=== PATIENT | male | born 1940 | race Caucasian/White ===

== ENCOUNTER → 2017-05-30 11:40 | Outpatient (CLI) | payer MEDICARE, SELFPAY ==
--- NOTE | 2017-05-30 12:00 | RAD_ITS ---
STUDY: X-RAY CHEST REASON FOR EXAM: Male, 77 years old. Cough, shortness of breath, recent flu TECHNIQUE: Frontal and lateral views of the chest. COMPARISON: None. FINDINGS: The lungs are clear and hyperinflated expanded. Basilar atelectasis. There is no demonstrated pleural abnormality. There is moderate cardiac enlargement. Normal mediastinum and purnima. Normal visualized pulmonary arteries. Normal visualized aortic arch and descending thoracic aorta. Normal visualized thoracic spine. Normal visualized ribs, clavicles, and shoulders. There is no demonstrated abnormality of the visualized soft tissue structures of the upper abdomen. RAD/Chest PA and Lateral IMPRESSION: No infiltrate. Basilar atelectasis. Hyperinflation. Cardiomegaly. Electronically Signed: Eduardo Richards DO at 0:00 EDT , Service support ,
[2017-05-30 14:44] LABS: AST(SGOT) 26 U/L (15-37); Alanine Aminotransfer ALT/SGPT 31 U/L (16-61); Albumin, Serum 3.5 g/dL (3.2-5.0); Alkaline Phosphatase 45 U/L (45-117); Anion Gap 6 (5-15); BUN 26 mg/dL (7-18); Bilirubin, Direct 0.09 mg/dL (0.00-0.30); Calcium,Total 8.7 mg/dL (8.5-10.1); Chloride 108 mmol/L (98-107); Cholesterol 206 mg/dL (200); Creatinine, Serum 1.37 mg/dL (0.70-1.30); EST Glomerular Filtration Rate 53 mL/min (>60); Est Glom Filt Rate - Afr Amer 65 mL/min (>60); Globulin 3.8 g/dL (2.2-4.2); Glucose 141 mg/dL (74-106); High Density Lipoprotein 33 mg/dL; Potassium 4.7 mmol/L (3.5-5.1); Protein, Total 7.3 g/dL (6.4-8.2); Sodium Level 142 mmol/L (136-145); Triglycerides 261 mg/dL; Very Low Density Lipoprotein 52 mg/dL (5-40)
[2017-05-30 14:49] LABS: Absolute Lymphocyte Count 1.51 X10^3/ul (0.83-4.51); Absolute Neutrophil Count 3.3 X10^3/uL (2.0-7.7); Basophil# 0.02 X10^3/uL; Basophil% 0.4 % (0-1); Eosinophils% 5.4 % (0-5); Hematocrit 41.8 % (40-54); Lymphocyte # 1.51 X10^3/ul (4.0); Lymphocyte % 27.4 % (19-41); Mean Corp Hgb Conc 31.1 g/gl (32-36); Mean Corpuscular Hgb 30.9 pg (27.0-32.0); Mean Corpuscular Volume 99.3 fL (80-94); Mean Platelet Vol. 11.6 fl (6.2-12.0); Monocyte# 0.41 X10^3/uL; Monocyte% 7.4 % (0-10); Neutrophil # 3.26 X10^3/uL (2.7-7.7); Neutrophil % 59.2 % (47-70); Platelet Count 122 K/mm3 (150-450); RBC Distribution Width CV 13.8 % (11.6-14.6); RBC Distribution Width SD 49.3 fl (35.1-43.9); Red Blood Count 4.21 M/mm3 (4.6-6.2); White Blood Count 5.5 K/mm3 (4.4-11.0)
[2017-05-30 14:58] LABS: POSITIVE COUNT NO; POSITIVE DIFFERENTIAL NO; POSITIVE MORPHOLOGY NO
== END ==
PROVIDERS: Family Provider Family Medicine; PCP Family Medicine; Visit Provider Family Medicine
DX: R06.02 Shortness of breath (principal); E11.9 Type 2 diabetes mellitus without complications
CPT/HCPCS: 36415; 71046; 80048; 80061; 80076; 85025

== ENCOUNTER → 2017-06-15 11:54 | Outpatient (CLI) | payer MEDICARE, SELFPAY ==
--- NOTE | 2017-06-15 12:09 | RAD_ITS ---
STUDY: X-RAY CHEST REASON FOR EXAM: Male, 77 years old. History of COPD. TECHNIQUE: PA and lateral views of the chest. COMPARISON: Comparison is made with prior study dated May 30, 2017. FINDINGS: Mild residual increased markings at the lung bases suggestive of bibasilar atelectasis and/or scarring. This as improved as compared to prior study. Blunting of the costophrenic angles posteriorly. There is mild cardiac enlargement. Normal mediastinum and purnima. Normal visualized pulmonary arteries. There is atherosclerotic calcification of the aortic arch with tortuosity. There are diffuse degenerative changes of the visualized thoracic spine. Normal visualized ribs, clavicles, and shoulders. There is no demonstrated abnormality of the visualized soft tissue structures of the upper abdomen. RAD/Chest PA and Lateral IMPRESSION: Mild increased markings at the lung bases suggestive of linear scarring and/or atelectasis. This has improved as compared to prior study. Electronically Signed: Ishaan La MD at 12:50 EDT Tel [phone], Service support ,
[2017-06-15 15:57] LABS: Absolute Lymphocyte Count 1.47 X10^3/ul (0.83-4.51); Absolute Neutrophil Count 3.4 X10^3/uL (2.0-7.7); Basophil# 0.04 X10^3/uL; Basophil% 0.7 % (0-1); Eosinophil# 0.26 X10^3/uL; Eosinophils% 4.6 % (0-5); Hematocrit 39.9 % (40-54); Hemoglobin 12.7 g/dl (13.0-16.5); Lymphocyte # 1.47 X10^3/ul (4.0); Lymphocyte % 26.2 % (19-41); Mean Corp Hgb Conc 31.8 g/gl (32-36); Mean Corpuscular Hgb 30.8 pg (27.0-32.0); Mean Corpuscular Volume 96.6 fL (80-94); Mean Platelet Vol. 11.3 fl (6.2-12.0); Monocyte# 0.43 X10^3/uL; Monocyte% 7.7 % (0-10); Neutrophil # 3.41 X10^3/uL (2.7-7.7); Neutrophil % 60.6 % (47-70); Platelet Count 139 K/mm3 (150-450); RBC Distribution Width CV 13.9 % (11.6-14.6); RBC Distribution Width SD 49.4 fl (35.1-43.9); Red Blood Count 4.13 M/mm3 (4.6-6.2); White Blood Count 5.6 K/mm3 (4.4-11.0)
[2017-06-15 15:59] LABS: POSITIVE COUNT NO; POSITIVE DIFFERENTIAL NO; POSITIVE MORPHOLOGY NO
[2017-06-15 16:15] LABS: ALB/GLOB Ratio 0.9 RATIO (0.9-2.4); AST(SGOT) 26 U/L (15-37); Alanine Aminotransfer ALT/SGPT 25 U/L (16-61); Albumin, Serum 3.4 g/dL (3.2-5.0); Alkaline Phosphatase 38 U/L (45-117); Anion Gap 9 (5-15); BUN 25 mg/dL (7-18); Calcium,Total 9.3 mg/dL (8.5-10.1); Chloride 106 mmol/L (98-107); Creatinine, Serum 1.25 mg/dL (0.70-1.30); EST Glomerular Filtration Rate 59 mL/min (>60); Est Glom Filt Rate - Afr Amer 72 mL/min (>60); Globulin 3.8 g/dL (2.2-4.2); Glucose 129 mg/dL (74-106); Potassium 4.5 mmol/L (3.5-5.1); Protein, Total 7.2 g/dL (6.4-8.2); Sodium Level 142 mmol/L (136-145)
[2017-06-15 16:25] LABS: BNP,B-Type NATRIURETIC PEPTIDE 17.8 pg/mL (0-100)
== END ==
LOC: MFPLAB 11:54 → MTRAD 11:55
PROVIDERS: Family Provider Family Medicine; PCP Family Medicine; Visit Provider Family Medicine
DX: J44.9 Chronic obstructive pulmonary disease, unspecified (principal); R60.0 Localized edema; R06.02 Shortness of breath
CPT/HCPCS: 36415; 71046; 80053; 83880; 85025

== ENCOUNTER → 2017-06-25 12:39 | Outpatient (CLI) | payer MEDICARE, SELFPAY ==
--- NOTE | 2017-06-25 12:41 | ECHOD_ITS ---
Reason For Study: SOB Procedure This was a 2D Doppler, Color Flow transthoracic echocardiogram. The exam was of poor technical quality due to difficulty breathing and body habitus. Exam performed in department. Left Ventricle Normal LV size. Left ventricular systolic function is normal. The estimated ejection fraction is 65 %. No regional wall motion abnormalities noted. Right Ventricle Normal RV size. Normal systolic function. Atria Normal left atrium. Normal right atrium. Mitral Valve Mitral valve not well visualized. Tricuspid Valve The tricuspid valve is not well visualized. Aortic Valve The aortic valve is not well visualized. Pulmonic Valve The pulmonic valve is not well visualized. Great Vessels Normal aortic root. The pulmonary artery is normal size. Pericardium/Pleural No pericardial effusion. Medication Pt refused use IV and of Definity. MMode/2D Measurements & Calculations LVIDd: 3.7 cm IVSd: 1.2 cm Ao root diam: 2.9 cm LVIDs: 2.9 cm LVPWd: 1.1 cm RVDd: 2.9 cm FS: 21.5 % LAV(MOD-bp): 39.1 ml LAV(MOD-bp) Indexed: 18.6 ml/m2 LA A4 area: 13.5 cm2 RA A4 area: 11.3 cm2 LAV(MOD-sp2): 40.6 ml LAV(MOD-sp4): 31.9 ml Doppler Measurements & Calculations MV E max prachi: 57.1 cm/sec MV V2 max: 146.6 cm/sec Ao V2 max: 229.0 cm/sec MV A max prachi: 98.2 cm/sec MV max P.6 mmHg Ao max P.0 mmHg MV E/A: 0.58 MV V2 mean: 76.5 cm/sec Ao V2 mean: 152.4 cm/sec MV mean P.7 mmHg Ao mean P.6 mmHg MV V2 VTI: 19.2 cm Ao V2 VTI: 37.1 cm LV V1 max: 110.7 cm/sec PA V2 max: 159.7 cm/sec LV V1 max P.9 mmHg LV V1 mean P.8 mmHg LV V1 mean: 80.9 cm/sec LV V1 VTI: 21.7 cm Interpretation Summary Normal LV size. Left ventricular systolic function is normal. The estimated ejection fraction is 65 %. The study was technically limited. The study was technically difficult. Ordering Physician: Emeka Hernandez Referring Physician: Emeka Hernandez Performed By: Jannette Marcial, LISSA, RVT
== END ==
PROVIDERS: Family Provider Family Medicine; PCP Family Medicine; Visit Provider Family Medicine
DX: R06.02 Shortness of breath (principal)
CPT/HCPCS: 93306

== ENCOUNTER → 2020-06-03 12:03 | Outpatient (CLI) | payer MEDICARE, SELFPAY ==
--- NOTE | 2020-06-03 12:30 | CT_ITS ---
STUDY: LOW DOSE CT LUNG CANCER SCREENING REASON FOR EXAM: Male, 80 years old. TOBACCO USE. The patient smoked 1.5 packs per day for 55 years. Patient quit in 2010. RADIATION DOSAGE (If Supplied By Facility): CTDIvol = ( 3.02 ) mGy, DLP = ( 98.55 ) mGycm TECHNIQUE: No contrast was administered. Low dose technique was utilized (average mAS-38 and kVp 120). 1.25 mm axial source images with a slice interval of 1.25-mm were reconstructed in lung windows. 2.5 mm axial source images with a slice interval of 2.5-mm were reconstructed in lung windows. 5.0 mm axial source images with a slice interval of 5.0-mm were reconstructed in soft tissue windows. Nodule measured using lung windows on PACS and/or independent workstation with automated measurement of minimum and maximum diameter. Nodule measurement reported as average diameter rounded to the nearest whole number. Growth is defined as an increase ins size of greater than 1.5 mm. COMPARISON: None. NODULES: No suspicious nodules are seen. Emphysema: Mild degree of emphysematous changes in the lung apices. There is mild degree of increased signal markings in the medial aspect of the right middle lobe as well as in the anterior aspect of the left lower lobe suggestive of scarring. There is also evidence of mild degree of bibasilar linear scarring slightly more prominent on the right side. Endobronchial lesion: None Aorta: Calcification of the aortic arch. Coronary arteries: Coronary artery calcification. Mediastinal nodes: Small mediastinal lymph nodes. Other chest and abdominal findings: Degenerative changes of the thoracic spine. CT/Low Dose CT Lung Screening IMPRESSION: Lung-RADS category 2 - Continue annual screening with LDCT in 12 months. IMPORTANT NOTES FOR USE: ACR Lung-RADS Version 1.0 Assessment Categories Release Date: July 07, 2013 Category: Coded 0-4 bases on nodule(s) with highest degree of suspicion. Negative screen is defined as categories 1 and 2; a positive screen is defined as categories 3 and 4. Category 3 and 4A nodules that are unchanged on interval CT should be coded as category 2, and individuals returned to screening in 12 months. Category 4X: Category 3 or 4 nodules with additional imaging findings that increase the suspicion of lung cancer, such as spiculation, GGN that doubles in size in 1 year, enlarged lymph notes, etc. Category Modifiers: S (significant finding unrelated to lung cancer) and C (prior history of treated lung cancer) may be added to the 0-4 Lung-RADS Electronically Signed: Ishaan La MD at 13:51 EDT , Service support ,
[2020-06-03 16:25] LABS: BNP,B-Type NATRIURETIC PEPTIDE 15.5 pg/mL (0-100)
== END ==
PROVIDERS: PCP Family Medicine; Visit Provider Internal Medicine Pulmonary Disease
DX: J44.9 Chronic obstructive pulmonary disease, unspecified (principal); I10 Essential (primary) hypertension; R09.02 Hypoxemia; Z87.891 Personal history of nicotine dependence
CPT/HCPCS: 36415; 71271; 83880

== ENCOUNTER 2021-05-02 13:16 | Observation (INO) | payer MEDICARE, SELFPAY ==
[2021-05-02] VITALS (15 sets, daily range): BP systolic 149–201; BP diastolic 53–104; PULSE 97–118; RESP 20–45; TEMP 36.6–36.7; O2SAT 94–98; BMI 35.6; BMI 35.1
--- NOTE | 2021-05-02 13:32 | EKG12_ITS ---
Test Reason : SOB Blood Pressure : / mmHG Vent. Rate : 105 BPM Atrial Rate : 105 BPM P-R Int : 190 ms QRS Dur : 074 ms QT Int : 312 ms P-R-T Axes : 072 006 030 degrees QTc Int : 412 ms Sinus tachycardia Otherwise normal ECG Confirmed by RADHA CARRILLO, YURIDIA ([id number]), art editor ZACKARY MARTINEZ ([id number]) on 05/03/2021 6:41:01 AM Referred By: ELIAS Confirmed By:YURIDIA GARCIA MD
--- NOTE | 2021-05-02 13:37 | ED.VIS.DYS ---
HPI <MIKE Calhoun - Last Filed: 05/02/21 14:55> History of Present Illness Chief Complaint: Shortness of Breath Narrative Narrative: 80-year-old male with PMH of HTN, HLD, DM2, COPD on chronic 2 L O2, CARMEN presents with 2-week history of increasing shortness of breath. He states he can only take 4-5 steps before becoming very winded. He is also orthopneic and sleeping upright in a recliner. No chest pain. His baseline cough is unchanged. He has been using his nebulizer more frequently without significant improvement. He states he was in [place] [facility] 1 week ago for these symptoms and they could not find anything wrong. He does report slightly increased lower extremity edema. He takes torsemide 5 mg once daily. He states this dose was cut in half a few months ago. He quit smoking in 2010. PFS <MIKE Calhoun - Last Filed: 05/02/21 14:55> [facility] Medical History (Updated 05/02/21 @ 16:[address] Tracy Angel MD) Chronic respiratory failure with hypoxia COPD (chronic obstructive pulmonary disease) Diabetes mellitus, type 2 Former tobacco use HLD (hyperlipidemia) HTN (hypertension) Hypothyroidism Obesity Home Medications aspirin [Aspirin Low Dose] 81 mg PO DAILY 05/02/21 [History Last Taken 05/02/21] atorvastatin 80 mg PO DAILY 05/02/21 [History Last Taken 05/01/21] cholecalciferol (vitamin D3) 25 mcg PO DAILY 05/02/21 [History Last Taken 05/02/21] glimepiride 4 mg PO DAILY 05/02/21 [History Last Taken 05/01/21] ipratropium-albuterol 3 ml INHALATION 4X/DAY 05/02/21 [History Last Taken 05/02/21] liothyronine 25 mcg PO DAILY 05/02/21 [History Last Taken 05/02/21] lisinopril-hydrochlorothiazide 1 tab PO DAILY 05/02/21 [History Last Taken 05/02/21] metformin 1,000 mg PO BID 05/02/21 [History Last Taken 05/02/21] omega-3 fatty acids-vitamin E [Fish Oil] 2 cap PO DAILY 05/02/21 [History Last Taken 05/01/21] tiotropium bromide [Spiriva with HandiHaler] 18 mcg INHALATION DAILY 05/02/21 [History Last Taken 05/02/21] torsemide 5 mg PO DAILY 05/02/21 [History Last Taken 05/01/21] vitamins A,C,Y-gaoc-tejoxo [PreserVision AREDS] 1 cap PO BID 05/02/21 [History Last Taken 05/02/21] Allergy/AdvReac Type Severity Reaction Status Date / Time codeine AdvReac Upset Verified 05/02/21 14:26 Stomach Family History (Updated 05/02/21 @ 16:[address] Tracy Angel MD) Mother CVA (cerebral vascular accident) Heart disease Myocardial infarction Hx of CABG Hypertension Father CVA (cerebral vascular accident) Heart disease Surgical History (Updated 05/02/21 @ 16:[address] Tracy Angel MD) S/P cataract extraction Social History (Updated 05/02/21 @ 16:[address] Tracy Angel MD) household members: none housing: house Smoking Status: Former smoker how long ago did patient quit smoking: Quit 2011, prior 1 ppd since teen. alcohol intake: former year quit: 2010 substance use type: does not use ROS <MIKE Calhoun - Last Filed: 05/02/21 14:55> ROS ED ROS Narrative Constitutional: Negative for fever, chills, malaise. Eyes: Negative for visual change. ENT: Negative for sore throat, ear pain, rhinorrhea. CVS: Negative for palpitations, chest pain, syncope. Respiratory: Positive shortness of breath, cough, orthopnea. GI: Negative for abdominal pain, nausea, vomiting, diarrhea, constipation, melena, hematochezia. : Negative for dysuria, hematuria or frequency. Neuro: Negative for headache, motor/sensory dysfunction. Skin: Negative for rash, abscess, or wound. Musc: Negative for joint pain, swelling, trauma. Heme: Negative for easy bruising, bleeding, lymphadenopathy. EXAM <MIKE Calhoun - Last Filed: 05/02/21 14:55> Physical Exam Narrative Exam Narrative: CONST: Patient sitting in no acute distress. EYES: Normal inspection. ENT: Normal inspection, moist mucous membranes. NECK: Normal inspection. RESP: Tachypneic, diffuse expiratory wheezing and diminished lung sounds. CVS: Tachycardic with regular rhythm, no murmur, no gallop. ABD: Soft and nontender, no guarding or rebound, nondistended, no hepatosplenomegaly. Back: Normal inspection. SKIN: Color normal, no rash, warm, dry, intact. EXTREMITIES: Normal appearance, 1+ pitting edema to bilateral mid tibia. NEURO: Oriented x4. PSYCH: Normal affect. Const Vital Signs: 05/02/21 13:20 05/02/21 13:27 05/02/21 13:59 Temperature 97.9 F Temperature Source Oral Pulse Rate 107 H 101 H Respiratory Rate 30 H 30 H Respiratory Effort Labored Respiratory Depth Normal Respiratory Pattern Tachypnea Normal Blood Pressure 180/61 H Blood Pressure Mean 100 Pulse Ox 96 94 Oxygen Delivery Method Nasal Cannula Nasal Cannula Nasal Cannula Oxygen Flow Rate (L/min) 4 3 2.5 05/02/21 14:08 05/02/21 14:39 05/02/21 15:21 Temperature 97.9 F Temperature Source Oral Pulse Rate 102 H 100 109 H Respiratory Rate 30 H 28 H 22 H Respiratory Effort Respiratory Depth Respiratory Pattern Normal Tachypnea Blood Pressure 157/53 H Blood Pressure Mean 87 Pulse Ox 96 Oxygen Delivery Method Nasal Cannula Oxygen Flow Rate (L/min) 3 <Dr. Dusty Yan MD - Last Filed: 05/02/21 18:55> Physical Exam Const Vital Signs: 05/02/21 13:20 05/02/21 13:27 05/02/21 13:59 Temperature 97.9 F Temperature Source Oral Pulse Rate 107 H 101 H Respiratory Rate 30 H 30 H Respiratory Effort Labored Respiratory Depth Normal Respiratory Pattern Tachypnea Normal Blood Pressure 180/61 H Blood Pressure Mean 100 Pulse Ox 96 94 Oxygen Delivery Method Nasal Cannula Nasal Cannula Nasal Cannula Oxygen Flow Rate (L/min) 4 3 2.5 05/02/21 14:08 05/02/21 14:39 05/02/21 15:21 Temperature 97.9 F Temperature Source Oral Pulse Rate 102 H 100 109 H Respiratory Rate 30 H 28 H 22 H Respiratory Effort Respiratory Depth Respiratory Pattern Normal Tachypnea Blood Pressure 157/53 H Blood Pressure Mean 87 Pulse Ox 96 Oxygen Delivery Method Nasal Cannula Oxygen Flow Rate (L/min) 3 MDM <MIKE Calhoun - Last Filed: 05/02/21 14:55> [facility] MDM Narrative Medical decision making narrative: Patient presents with worsening dyspnea on exertion, orthopnea, and lower extremity edema. He appears in mild respiratory distress but nontoxic. He has diffuse wheezing in all lung hollis and 2+ pitting edema bilaterally. Labs show hemoglobin of 11.7. This is unchanged from outside labs at [place] on 04/23. He has a normal white count. Sodium is 146, BUN/creatinine 36/1.3. EKG is nonischemic and troponin is 35. proBNP is 210. Chest x-ray shows CHF with bilateral pleural effusions and clinically this is what he is consistent with. With normal renal function he was treated with IV Lasix 40 mg. While here he required increased oxygen up to 4 L and remains very symptomatic. He will need admitted for CHF exacerbation. Diagnoses 1. Hypoxia 2. CHF exacerbation 3. Hypernatremia 4. Bilateral pleural effusions Lab Data Labs: Laboratory Results - last 24 hr 05/02/21 05/02/21 05/02/21 13:41 13:41 13:41 WBC 5.7 RBC 3.67 L Hgb 11.7 L Hct 36.0 L MCV 98.1 H MCH 31.9 MCHC 32.5 RDW Std Deviation 46.0 H RDW Coeff of John 12.9 Plt Count 88 L MPV 10.8 Immature Gran % (Auto) 0.300 Neut % (Auto) 74.6 H Lymph % (Auto) 14.8 L [place] % (Auto) 5.1 Eos % (Auto) 4.7 Baso % (Auto) 0.5 Absolute Neuts (auto) 4.3 Absolute Lymphs (auto) 0.85 Nucleated RBC % 0 Platelet Estimate MOD DEC Sodium 146 H Potassium 4.5 Chloride 111 H Carbon Dioxide 33.0 H Anion Gap 2 L BUN 36 H Creatinine 1.30 Estim Creat Clear Calc 40.22 Est GFR (MDRD) Af Amer 68 Est GFR (MDRD) Non-Af 56 L BUN/Creatinine Ratio 27.7 H Glucose 182 H Calcium 9.1 Magnesium Troponin I High Sens 35 B-Natriuretic Peptide 210.6 H Procalcitonin 05/02/21 05/02/21 13:41 14:20 WBC RBC Hgb Hct MCV MCH MCHC RDW Std Deviation RDW Coeff of John Plt Count MPV Immature Gran % (Auto) Neut % (Auto) Lymph % (Auto) [place] % (Auto) Eos % (Auto) Baso % (Auto) Absolute Neuts (auto) Absolute Lymphs (auto) Nucleated RBC % Platelet Estimate Sodium Potassium Chloride Carbon Dioxide Anion Gap BUN Creatinine Estim Creat Clear Calc Est GFR (MDRD) Af Amer Est GFR (MDRD) Non-Af BUN/Creatinine Ratio Glucose Calcium Magnesium 1.2 L Troponin I High Sens B-Natriuretic Peptide Procalcitonin 0.12 H Radiography Diagnostic Testing: Clinical Impression(s) from Imaging Studies Chest X-Ray 05/02/21 13:51 IMPRESSION: Bilateral pleural effusions and bibasilar infiltrates superimposed on CHF. Well-defined pulmonary nodules are seen in the peripheral lateral aspect of the right lower lobe. Electronically Signed: Ishaan La MD at 14:10 EST , <Dr. Dusty Yan MD - Last Filed: 05/02/21 18:55> [facility] MDM Narrative Medical decision making narrative: to male with hi He is not a very good informant.story of congestive heart failure. Has not seen a community health director in approximately 6 years.Patient is noted He does He is presently on 4 L of oxygen bleeding 35 times a minute and has conversational dyspnea.. He denies PND. He does endorse increased weight gain and edema. endorse orthopnea He was seen at outside facility approximate week ago. Blood work is similar to results at that time. BNP was higher. Patient is a heavyset gentleman who is in respiratory distress. He denies anginal equivalent symptoms. He denies black or maroon-colored stool. He denies decreased urine output. Vital signs noted. He is tachypneic. His saturation is 96% on 4 L. HEENT exam is unremarkable. Lungs reveal rales bilaterally decreased breath sounds on the left base. is Heart bowel sounds diminished. He slightly symptomatic. regular w Abdomen is nontender.ithout murmur, gallop or rub. Abdomen is prominent Patient has pitting edema of the lower extremities. He is not jaundiced. He appears slightly pale. Monitor reveals a sinus rhythm rate of 102.There is a rare ectopic beat noted. Patient was treated with IV Lasix. Since he is requiring 4 L of oxygen he has conversational dyspnea hospitalist been paged for admission for acute exacerbation of CHF. Patient has failed outpatient therapy. Lab Data Attestation: I reviewed the patient's lab results. Labs: Laboratory Results - last 24 hr 05/02/21 05/02/21 05/02/21 13:41 13:41 13:41 WBC 5.7 RBC 3.67 L Hgb 11.7 L Hct 36.0 L MCV 98.1 H MCH 31.9 MCHC 32.5 RDW Std Deviation 46.0 H RDW Coeff of John 12.9 Plt Count 88 L MPV 10.8 Immature Gran % (Auto) 0.300 Neut % (Auto) 74.6 H Lymph % (Auto) 14.8 L [place] % (Auto) 5.1 Eos % (Auto) 4.7 Baso % (Auto) 0.5 Absolute Neuts (auto) 4.3 Absolute Lymphs (auto) 0.85 Nucleated RBC % 0 Platelet Estimate MOD DEC Sodium 146 H Potassium 4.5 Chloride 111 H Carbon Dioxide 33.0 H Anion Gap 2 L BUN 36 H Creatinine 1.30 Estim Creat Clear Calc 40.22 Est GFR (MDRD) Af Amer 68 Est GFR (MDRD) Non-Af 56 L BUN/Creatinine Ratio 27.7 H Glucose 182 H Calcium 9.1 Magnesium Troponin I High Sens 35 B-Natriuretic Peptide 210.6 H Procalcitonin 05/02/21 05/02/21 13:41 14:20 WBC RBC Hgb Hct MCV MCH MCHC RDW Std Deviation RDW Coeff of John Plt Count MPV Immature Gran % (Auto) Neut % (Auto) Lymph % (Auto) [place] % (Auto) Eos % (Auto) Baso % (Auto) Absolute Neuts (auto) Absolute Lymphs (auto) Nucleated RBC % Platelet Estimate Sodium Potassium Chloride Carbon Dioxide Anion Gap BUN Creatinine Estim Creat Clear Calc Est GFR (MDRD) Af Amer Est GFR (MDRD) Non-Af BUN/Creatinine Ratio Glucose Calcium Magnesium 1.2 L Troponin I High Sens B-Natriuretic Peptide Procalcitonin 0.12 H Radiography Chest X-Ray - ED: Read by ED Physician (Single view chest x-ray reveals borderline cardiomegaly. Cardiac silhouette is unremarkable. Patient has bilateral pleural effusions with evidence of congestive heart failure. Osseous structures are unremarkable.) Diagnostic Testing: Clinical Impression(s) from Imaging Studies Chest X-Ray 05/02/21 13:51 IMPRESSION: Bilateral pleural effusions and bibasilar infiltrates superimposed on CHF. Well-defined pulmonary nodules are seen in the peripheral lateral aspect of the right lower lobe. Electronically Signed: Ishaan La MD at 14:10 EST , EKG Initial EKG: Attestation: I personally reviewed and interpreted this EKG as follows: Interpretation: Sinus Tachycardia (Ventricular rate 105. ND interval is 190 ms. QS duration 74 ms. QT duration 3 and 12 ms with a QTC of 412 ms. [place] normal. Other than sinus tachycardia the EKG is otherwise unremarkable) Discharge Plan Dx/Rx/DC Orders Clinical Impression: Acute exacerbation of CHF (congestive heart failure), Acute respiratory failure with hypoxia, Sinus tachycardia, Anemia in chronic illness, Prerenal azotemia, Bilateral pleural effusion Disposition Disposition: Acute Care Hospital [facility] Discharge Date/Time: 05/02/21 15:43
--- NOTE | 2021-05-02 13:51 | RAD_ITS ---
STUDY: X-RAY CHEST REASON FOR EXAM: Male, 80 years old. Cough TECHNIQUE: Single AP portable view of the chest. COMPARISON: Comparison is made with prior study 06/15/2017. FINDINGS: EKG electrodes are seen. Bilateral pleural effusions with bibasilar pulmonary infiltrates. Pulmonary nodule is seen in the lateral aspect of the right lower lobe. There is superimposed CHF. Normal size heart. Normal mediastinum and purnima. Normal visualized pulmonary arteries. There is atherosclerotic calcification of the aortic arch with tortuosity. There are diffuse degenerative changes of the visualized thoracic spine. Normal visualized ribs, clavicles, and shoulders. There is no demonstrated abnormality of the visualized soft tissue structures of the upper abdomen. RAD/Chest 1 View (Portable) IMPRESSION: Bilateral pleural effusions and bibasilar infiltrates superimposed on CHF. Well-defined pulmonary nodules are seen in the peripheral lateral aspect of the right lower lobe. Electronically Signed: Ishaan La MD at 14:10 EST ,
[2021-05-02 13:52] LABS: Absolute Lymphocyte Count 0.85 X10^3/uL (0.83-4.51); Absolute Neutrophil Count 4.3 X10^3/uL (2.0-7.7); Basophil# 0.03 X10^3/uL; Basophil% 0.5 % (0-1); Eosinophil# 0.27 X10^3/uL; Eosinophils% 4.7 % (0-5); Hemoglobin 11.7 g/dL (13.0-16.5); Lymphocyte # 0.85 X10^3/ul (0.83-4.51); Lymphocyte % 14.8 % (19-41); Mean Corp Hgb Conc 32.5 g/dL (32-36); Mean Corpuscular Hgb 31.9 pg (27.0-32.0); Mean Corpuscular Volume 98.1 fL (80-94); Mean Platelet Vol. 10.8 fl (6.2-12.0); Monocyte# 0.29 X10^3/uL; Monocyte% 5.1 % (0-10); NRBC Flagged by Analyzer 0 % (0-5); Neutrophil # 4.28 X10^3/uL (2.7-7.7); Neutrophil % 74.6 % (47-70); POSITIVE COUNT YES; Platelet Count 88 K/mm3 (150-450); RBC Distribution Width CV 12.9 % (11.6-14.6); Red Blood Count 3.67 M/mm3 (4.6-6.2); White Blood Count 5.7 K/mm3 (4.4-11.0)
--- NOTE | 2021-05-02 13:54 | NURSING ---
NO OLD EKGS
[2021-05-02] MEDS: Albuterol 2.5 MG/3 ML VIAL.NEB. INHALATION ×3 (14:02→14:07)
[2021-05-02 14:09] LABS: Anion Gap 2 (5-15); BUN 36 mg/dL (7-18); BUN/Creat Ratio 27.7 RATIO (10-20); Calcium,Total 9.1 mg/dL (8.5-10.1); Chloride 111 mmol/L (98-107); EST Glomerular Filtration Rate 56 mL/min (>60); Est Glom Filt Rate - Afr Amer 68 mL/min (>60); Estimated Creatinine Clearance 40.22 ml/min; Glucose 182 mg/dL (74-106); Potassium 4.5 mmol/L (3.5-5.1); Sodium Level 146 mmol/L (136-145); Troponin-I HS 35 pg/mL (3.0-78.0)
[2021-05-02 14:14] LABS: Differential Indicated SCAN CRITERIA MET
[2021-05-02 14:16] LABS: BNP,B-Type NATRIURETIC PEPTIDE 210.6 pg/mL (0-100)
[2021-05-02] MEDS: Furosemide 40 MG/4 ML Vial IV ×2 (14:27→17:03)
[2021-05-02 14:38] LABS: Platelet Estimate MOD DEC (ADEQ)
--- NOTE | 2021-05-02 14:57 | PCM.HP.STD ---
HPI - General General Date of Admission: 05/02/21 Date of Service: 05/02/21 Chief Complaint: Dyspnea, cough, increased home O2 needs 2->4L HPI Narrative The patient is an 80 y/o M w/ PMHx: CKD stage III unclear subtype, HTN, HLD, Chronic anemia, Chronic Thrombocytopenia, Diabetes mellitus type II, Obesity, CHF unclear type following w/ Dr. Gant previously but has not seen anyone recently, Chronic COPD w/ Chronic Hypoxic Respiratory Failure (2L NC) who presents to the [facility] ED on 05/02/21 with history of worsening dyspnea, orthopnea, worsening BL LE edema, weight gain over the last 2 weeks, increased work of breathing requiring increase of his home oxygen from 2L to 4L NC. He notes that he is not been taking any medications aside from a blood pressure medication recently because he has not been to see any healthcare professionals. He denies any significant productive sputum but has had ongoing cough with chest tightness/wheezing. He notes that his been worsened since the recent large snowfall and shoveling outside. Work-up in the ED included T 97.9, heart rate initially 107 with most recent repeat 100, BP 180/61, respiratory rate 30, initially 96% on 4 L nasal cannula decreased to 94% on 2.5 L nasal cannula, CBC with WC 5.7, hemoglobin 11.7, platelet 88 without marked shift, BMP with sodium 146, chloride 111, convex at 33, BUN/creatinine 36/1.30, glucose 182, troponin 35, BNP 210.6, rapid Covid antigen negative, chest x-ray with bilateral pleural effusions and bibasilar infiltrates superimposed on CHF, well-defined pulmonary nodule seen in the peripheral lateral aspect of the right lower lobe. In the ED patient administered lasix 40 mg IV x 1 and aerosols. [facility] Medical History (Updated 05/02/21 @ 16:[address] Tracy Angel MD) Chronic respiratory failure with hypoxia COPD (chronic obstructive pulmonary disease) Diabetes mellitus, type 2 Former tobacco use HLD (hyperlipidemia) HTN (hypertension) Hypothyroidism Obesity Home Medications aspirin [Aspirin Low Dose] 81 mg PO DAILY 05/02/21 [History Last Taken 05/02/21] atorvastatin 80 mg PO DAILY 05/02/21 [History Last Taken 05/01/21] cholecalciferol (vitamin D3) 25 mcg PO DAILY 05/02/21 [History Last Taken 05/02/21] glimepiride 4 mg PO DAILY 05/02/21 [History Last Taken 05/01/21] ipratropium-albuterol 3 ml INHALATION 4X/DAY 05/02/21 [History Last Taken 05/02/21] liothyronine 25 mcg PO DAILY 05/02/21 [History Last Taken 05/02/21] lisinopril-hydrochlorothiazide 1 tab PO DAILY 05/02/21 [History Last Taken 05/02/21] metformin 1,000 mg PO BID 05/02/21 [History Last Taken 05/02/21] omega-3 fatty acids-vitamin E [Fish Oil] 2 cap PO DAILY 05/02/21 [History Last Taken 05/01/21] tiotropium bromide [Spiriva with HandiHaler] 18 mcg INHALATION DAILY 05/02/21 [History Last Taken 05/02/21] torsemide 5 mg PO DAILY 05/02/21 [History Last Taken 05/01/21] vitamins A,C,X-ddeq-jmwrgs [PreserVision AREDS] 1 cap PO BID 05/02/21 [History Last Taken 05/02/21] Allergy/AdvReac Type Severity Reaction Status Date / Time codeine AdvReac Upset Verified 05/02/21 14:26 Stomach Family History (Updated 05/02/21 @ 16:[address] Tracy Angel MD) Mother CVA (cerebral vascular accident) Heart disease Myocardial infarction Hx of CABG Hypertension Father CVA (cerebral vascular accident) Heart disease Surgical History (Updated 05/02/21 @ 16:[address] Tracy Angel MD) S/P cataract extraction Social History (Updated 05/02/21 @ 16:[address] Tracy Angel MD) household members: none housing: house Smoking Status: Former smoker how long ago did patient quit smoking: Quit 2011, prior 1 ppd since teen. alcohol intake: former year quit: 2010 substance use type: does not use ROS ROS Narrative Admission Review of Systems: CONSTITUTIONAL: No weight loss, fever, chills, + weakness or fatigue, weight gain. HEENT: Eyes: No visual loss, blurred vision, double vision or yellow sclerae. Ears, Nose, Throat: No hearing loss, sneezing, congestion, runny nose or sore throat. SKIN: No rash or itching, lesions, wounds. CARDIOVASCULAR: + Chest tightness with wheezing, edema, orthopnea, weight gain. No palpitations, syncopal events. RESPIRATORY: + shortness of breath, cough without marked sputum, wheezing, No hemoptysis. GASTROINTESTINAL: No anorexia, nausea, vomiting or diarrhea, abdominal pain, melena, BRBPR. GENITOURINARY: No dysuria, frequency, urgency or retention. NEUROLOGICAL: No headache, dizziness, syncope, paralysis, ataxia, numbness or tingling in the extremities, focal weakness, change in bowel or bladder control, seizure. MUSCULOSKELETAL: + muscle, back pain, joint pain or stiffness. HEMATOLOGIC: + anemia, bleeding or bruising. LYMPHATICS: No enlarged nodes. No history of splenectomy. PSYCHIATRIC: No history of depression or anxiety. ENDOCRINOLOGIC: No reports of sweating, cold or heat intolerance. No polyuria or polydipsia. ALLERGIES: No history of asthma, hives, eczema or rhinitis. Vital Signs Vital Signs Vital Signs: 05/02/21 13:20 05/02/21 13:27 05/02/21 13:59 Temperature 97.9 F Temperature Source Oral Pulse Rate 107 H 101 H Respiratory Rate 30 H 30 H Respiratory Effort Labored Respiratory Depth Normal Respiratory Pattern Tachypnea Normal Blood Pressure 180/61 H Blood Pressure Mean 100 Pulse Ox 96 94 Oxygen Delivery Method Nasal Cannula Nasal Cannula Nasal Cannula Oxygen Flow Rate (L/min) 4 3 2.5 05/02/21 14:08 05/02/21 14:39 Temperature Temperature Source Pulse Rate 102 H 100 Respiratory Rate 30 H 28 H Respiratory Effort Respiratory Depth Respiratory Pattern Normal Tachypnea Blood Pressure Blood Pressure Mean Pulse Ox Oxygen Delivery Method Oxygen Flow Rate (L/min) Weight Weight: 221 lb Body Mass Index (BMI) 35.6 Physical Exam Narrative Physical Examination: General: Awake, alert, oriented x 3 and cooperative, seated upright in the ED bed, fatigued, mildly increased RR, NAD. Skin: Normal color, normal turgor, no icterus, no cyanosis except occasional staged ecchymoses. HEENT: AT/NC, EOMI, PERRLA, MMM, no carotid bruits, + JVD noted, although difficult exam given thickened neck. Lungs: Diffusely diminished, tight, mild increased respiratory rate, mild rales bases, end expiratory soft distant wheezing, no rhonchi. Heart: Mildly tachycardic with regular rhythm; no gallop, rub audible. Abdomen: Soft, obese, NTTP, ND but difficult given habitus, distant normal BS, no obvious evidence of HSM. Extremities: No cyanosis, no clubbing, bilateral ankle to distal sherwood not markedly pitting edema. Neurological: Patient awake, alert, oriented as noted, cognitive function intact; pupils equally reactive to light and accommodation, cranial nerves II-XII grossly normal, moving all 4 extremities, no focal deficits, strength moderately to severe your leg decree secondary to acute presentation. Psychiatric: Affect appears fatigued, mildly increased respiratory rate, notes recent aerosols did help, no acute evidence of depressive or anxiety feelings. Results Lab / Micro Data Result Diagrams: 05/02/21 13:41 05/02/21 13:41 Labs: Laboratory Results - last 24 hr 05/02/21 13:41: WBC 5.7, RBC 3.67 L, Hgb 11.7 L, Hct 36.0 L, MCV 98.1 H, MCH 31.9, MCHC 32.5, RDW Std Deviation 46.0 H, RDW Coeff of John 12.9, Plt Count 88 L, MPV 10.8, Immature Gran % (Auto) 0.300, Neut % (Auto) 74.6 H, Lymph % (Auto) 14.8 L, [place] % (Auto) 5.1, Eos % (Auto) 4.7, Baso % (Auto) 0.5, Absolute Neuts (auto) 4.3, Absolute Lymphs (auto) 0.85, Nucleated RBC % 0, Platelet Estimate MOD DEC 05/02/21 13:41: Sodium 146 H, Potassium 4.5, Chloride 111 H, Carbon Dioxide 33.0 H, Anion Gap 2 L, BUN 36 H, Creatinine 1.30, Estim Creat Clear Calc 40.22, Est GFR (MDRD) Af Amer 68, Est GFR (MDRD) Non-Af 56 L, BUN/Creatinine Ratio 27.7 H, Glucose 182 H, Calcium 9.1, Troponin I High Sens 35 05/02/21 13:41: B-Natriuretic Peptide 210.6 H Micro: Microbiology 05/02/21 13:49 Nasal Secretion SARS-CoV-2 Antigen (Rapid) - Final Radiology Impression Chest X-Ray 05/02/21 13:51 IMPRESSION: Bilateral pleural effusions and bibasilar infiltrates superimposed on CHF. Well-defined pulmonary nodules are seen in the peripheral lateral aspect of the right lower lobe. Electronically Signed: Ishaan La MD at 14:10 EST , Assessment & Plan Assessment/Plan (1) Acute exacerbation of CHF (congestive heart failure): QUALIFIERS: Heart failure type: unspecified Qualified Code(s): I50.9 - Heart failure, unspecified (2) COPD exacerbation: (3) Acute and chronic respiratory failure with hypoxia: PLAN: The patient is an 80 y/o M w/ PMHx: CKD stage III unclear subtype, HTN, HLD, Chronic anemia, Chronic Thrombocytopenia, Diabetes mellitus type II, Obesity, CHF unclear type following w/ Dr. Gant previously but has not seen anyone recently, Chronic COPD w/ Chronic Hypoxic Respiratory Failure (2L NC) who presents to the [facility] ED on 05/02/21 with history of worsening dyspnea, orthopnea, worsening BL LE edema, weight gain over the last 2 weeks, increased work of breathing requiring increase of his home oxygen from 2L to 4L NC as well as complaint of tightness/wheezing with no marked sputum production but ongoing cough. #1. Acute Respiratory Insufficiency on Chronic Hypoxic Respiratory Failure secondary to Acute Decompensated CHF, unclear type and #2: CXR obtained in the ED w/ bilateral effusions and infiltrates superimposed on CHF. Patient administered IV lasix in the ED, will admit to PCU, maintain on cardiac telemetry, obtain cardiac enzyme series, obtain serial EKGs, continue IV lasix diuresis, monitor I/Os, maintain on intake restriction, continue medical therapy, obtain TSH and magnesium level. 06/25/17 ECHO w/ normal LV size, normal LV systolic function, EF 65% therefore will request repeat. May involve cardiology pending further assessments and evaluations. To be cautious will obtain repeat chest x-ray in a.m. to assure no underlying developing pneumonia however patient does not have marked WBC elevation or left shift and is afebrile of note. Procalcitonin requested. #2. Acute on chronic COPD exacerbation w/ Acute respiratory insufficiency on chronic hypoxic respiratory failure: Will maintain on oxygen with wean as tolerated to home oxygen supplementation, continue ATC duonebs, PRN albuterol, IV methylprednisolone, HOB, IS parameters, obtain sputum culture, procalcitonin, defer antibiotic therapies pending further work-up as afebrile and no marked WC elevation or marked shift. Previously from discussions used to trilogy, will transition to BiPAP nightly at this point. #3. Incidental well-defined pulmonary nodules right lower lobe peripherally: Chest x-ray with noted peripheral well-defined pulmonary nodules in the right lower lobe, will need follow-up possibly following discharge CT imaging especially given history tobacco use history. #4. Chronic normocytic anemia: Admission hemoglobin 11.7, prior baseline most recently 12 however is been several years, repeat CBC in AM. #5. Chronic thrombocytopenia, unclear etiology: Admission platelets 88, previously 120-130 baseline however this has been since 2018, will repeat CBC in a.m., cautiously use any chemoprophylaxis with low threshold to hold if any decrease further. #6. Chronic Kidney Disease Stage III, unclear subtype: Admission BUN/Cr 36/1.30, baseline renal function 1.3-1.5, repeat BMP in AM. #7. Hypertension: We will continue it as noted IV Lasix therapy, not on beta-greta or RICH inhibitor/ARB per current list, as needed IV hydralazine. #8. Hyperlipidemia: Continue home statin regimen. AM FLP. #9. Hypothyroidism: We will continue patient liothyronine regimen, TSH requested #10. Diabetes mellitus type II: Hold oral home regimen, continue home insulin regimen, ADA diet, accu checks w/ ISS. #11. Obesity: Weight loss and lifestyle changes encouraged. #12. CARMEN: Patient states in the past he used to trilogy likely secondary to COPD but unclear if sleep apnea history, will do nightly BiPAP. #13. DVT prophylaxis: SCDs, Lovenox. #14. CODE status: Patient RUSTY is his daughter he notes and living will is currently in place. Discussed CODE status at length including difference between FULL code, DNR-CCA and DNR-CC status. Following discussions about the differences in these status, requested DNR-CCA, no intubation status. Advanced Care Planning Face to Face Time: 16 minutes. Charges/Coding Visit Charges Inpatient E&M: 37697 Init Hosp L3 Procedures Hospitalists Procedures: 25957 Advncd Care Plan 30 Min
--- NOTE | 2021-05-02 15:34 | NURSING ---
PCU WHITE HYPOXIA
--- NOTE | 2021-05-02 16:02 | ECHOCS_ITS ---
Reason For Study: CHF Procedure This was a 2D Doppler, Color Flow transthoracic echocardiogram. The study was technically difficult. Due to body habitus. Contrast injection was performed. Exam performed portable in patient room. Left Ventricle Based upon the 2D echocardiographic and contrast enhanced images obtained there appears to be grossly normal left ventricular size, wall motion, and systolic function. The estimated ejection fraction is 65 %. Diastolic function is indeterminate. Right Ventricle Based upon the 2D echocardiographic images obtained there appears to be grossly normal right ventricular size and systolic function. Atria Normal left atrium. Normal right atrium. No doppler evidence for ASD. Mitral Valve There is no mitral annular calcification. Normal mitral valve. Trivial mitral valve insufficiency. Tricuspid Valve The tricuspid valve is not well visualized. Aortic Valve Trisinus/trileaflet aortic valve. Mild diffuse aortic valve thickening. Mild diffuse aortic valve calcification. Mild to moderate aortic stenosis. Pulmonic Valve The pulmonic valve is not well visualized. Great Vessels The aortic root is not well visualized. Pericardium/Pleural No pericardial effusion. Medication Diluted definity 3.0ml given slow IV push to enhance endocardial definition. MMode/2D Measurements & Calculations LVOT diam: 2.0 cm LAV(MOD-bp): 41.3 ml LVAd ap4: 33.2 cm2 LVOT area: 3.0 cm2 LAV(MOD-bp) Indexed: 20.0 ml/m2 LVLd ap4: 8.8 cm LAV(MOD-sp2): 42.1 ml EDV(MOD-sp4): 101.7 ml LAV(MOD-sp4): 40.1 ml EDV(sp4-el): 106.3 ml LVAs ap4: 19.0 cm2 LVLs ap4: 7.7 cm ESV(MOD-sp4): 39.0 ml ESV(sp4-el): 40.0 ml EF(MOD-sp4): 61.7 % EF(sp4-el): 62.4 % LVAd ap2: 37.1 cm2 SV(MOD-sp4): 62.7 ml SV(MOD-sp2): 87.2 ml LVLd ap2: 8.7 cm EDV(MOD-sp2): 130.2 ml EDV(sp2-el): 134.4 ml LVAs ap2: 19.1 cm2 LVLs ap2: 7.1 cm ESV(MOD-sp2): 43.1 ml ESV(sp2-el): 43.7 ml EF(MOD-sp2): 66.9 % SV(sp4-el): 66.3 ml LA A4 area: 15.4 cm2 LA dimension(2D): 3.7 cm RA A4 area: 12.6 cm2 Time Measurements MV dec time: 0.20 sec Doppler Measurements & Calculations MV E max mando: 117.2 cm/sec Lat Peak E' Mando: 9.3 cm/sec Med Peak E' Mando: 8.7 cm/sec MV A max mando: 144.9 cm/sec E/E' lat: 12.6 E/E' med: 13.5 MV E/A: 0.81 Ao V2 max: 288.5 cm/sec LV V1 max: 111.2 cm/sec SV(LVOT): 82.4 ml Ao max P.3 mmHg LV V1 max P.0 mmHg Ao V2 mean: 204.3 cm/sec LV V1 mean P.8 mmHg Ao mean P.5 mmHg LV V1 mean: 80.7 cm/sec Ao V2 VTI: 62.1 cm LV V1 VTI: 27.1 cm ALEXY(I,D): 1.3 cm2 ALEXY(V,D): 1.2 cm2 PA V2 max: 113.9 cm/sec ECHO/Echo Complete W/ Contrast Interpretation Summary The study was technically difficult. Contrast injection was performed. Based upon the 2D echocardiographic and contrast enhanced images obtained there appears to be grossly normal left ventricular size, wall motion, and systolic function. The estimated ejection fraction is 65 %. Trivial mitral valve insufficiency. Mild to moderate aortic stenosis. Diastolic function is indeterminate. Ordering Physician: Tracy Angel Referring Physician: Adrianna Nichols Performed By: Asia Cates, LISSA, RVT
[2021-05-02 16:23] LABS: Magnesium 1.2 mg/dL (1.6-2.6)
[2021-05-02 16:55] LABS: Troponin-I HS 46 pg/mL (3.0-78.0)
[2021-05-02 17:01] LABS: Bedside Glucose 140 mg/dL (70-110)
[2021-05-02] MEDS: 0.9% Saline Lock 10 ML Syringe IV ×4 (17:03→23:20)
[2021-05-02 17:08] LABS: Procalcitonin 0.12 ng/mL (0.00-0.09)
[2021-05-02] MEDS: Magnesium Sulfate 4gm/100mL 4 GM/100 ML IV.SOLN. IV (17:57)
[2021-05-02] MEDS: Menthol/Lanolin/Calamine/Znox 113 GM Tube 1 APPLIC TOPICAL ×2 (17:59→20:53)
[2021-05-02] MEDS: Ipratropium/Albuterol Sulfate 3 ML AMPUL.NEB INHALATION ×2 (19:00→22:34)
--- NOTE | 2021-05-02 19:47 | CPS ---
Talked to patient about Bipap. Patient stated that he doesn't wear a machine at night to sleep with only o2, and doesn't want to wear one while he is here.
[2021-05-02] MEDS: Enoxaparin 40 MG/0.4 ML Syringe SC (20:53)
[2021-05-02] MEDS: Famotidine 20 MG Tablet PO (20:54)
[2021-05-02] MEDS: Insulin Lispro 100 UNIT/ML INSULN.PEN SC (21:00)
[2021-05-02 21:24] LABS: Troponin-I HS 53 pg/mL (3.0-78.0)
[2021-05-02 21:45] LABS: Bedside Glucose 314 mg/dL (70-110)
[2021-05-02] MEDS: hydrALAZINE 20 MG/ML Vial 10 MG IV (22:07)
[2021-05-02] MEDS: Labetalol (Prefilled) 20 MG/4 ML 10 MG IV (23:20)
--- NOTE | 2021-05-02 23:26 | CPS ---
Patient wore bipap for less than 5 minutes, wasn't able to tolerate it.
[2021-05-03] VITALS (14 sets, daily range): BP systolic 100–156; BP diastolic 54–78; PULSE 81–102; RESP 17–32; TEMP 36.3–36.9; O2SAT 93–98
[2021-05-03] MEDS: 0.9% Saline Lock 10 ML Syringe IV ×4 (05:04→21:16)
--- NOTE | 2021-05-03 05:55 | RAD_ITS ---
STUDY: X-RAY CHEST REASON FOR EXAM: Male, 80 years old. Dyspnea, cough TECHNIQUE: Single AP portable view of the chest. COMPARISON: Comparison is made with prior study dated 05/02/2021. FINDINGS: EKG electrodes are seen. Once again, there is evidence of vascular congestion and CHF with small bilateral pleural effusions and bibasilar atelectasis and/or infiltrates. There is been essentially no change. Normal size heart. Normal mediastinum and purnima. Normal visualized pulmonary arteries. There is atherosclerotic calcification of the aortic arch with tortuosity. There are diffuse degenerative changes of the visualized thoracic spine. Normal visualized ribs, clavicles, and shoulders. There is no demonstrated abnormality of the visualized soft tissue structures of the upper abdomen. RAD/Chest 1 View (Portable) IMPRESSION: Cardiomegaly and CHF with bibasilar atelectasis and/or infiltrates. There has been no change. Electronically Signed: Ishaan La MD at 9:49 EST ,
[2021-05-03 06:08] LABS: Absolute Lymphocyte Count 0.45 X10^3/uL (0.83-4.51); Absolute Neutrophil Count 3.4 X10^3/uL (2.0-7.7); Basophil# 0.01 X10^3/uL; Basophil% 0.3 % (0-1); Eosinophil# 0.01 X10^3/uL; Eosinophils% 0.3 % (0-5); Hematocrit 33.2 % (40-54); Hemoglobin 10.7 g/dL (13.0-16.5); Lymphocyte # 0.45 X10^3/ul (0.83-4.51); Lymphocyte % 11.5 % (19-41); Mean Corp Hgb Conc 32.2 g/dL (32-36); Mean Corpuscular Hgb 30.2 pg (27.0-32.0); Mean Corpuscular Volume 93.8 fL (80-94); Mean Platelet Vol. 11.4 fl (6.2-12.0); Monocyte# 0.08 X10^3/uL; NRBC Flagged by Analyzer 0 % (0-5); Neutrophil # 3.37 X10^3/uL (2.7-7.7); Neutrophil % 85.6 % (47-70); POSITIVE COUNT YES; POSITIVE DIFFERENTIAL YES; Platelet Count 76 K/mm3 (150-450); RBC Distribution Width CV 12.9 % (11.6-14.6); RBC Distribution Width SD 43.9 fl (35.1-43.9); Red Blood Count 3.54 M/mm3 (4.6-6.2); White Blood Count 3.9 K/mm3 (4.4-11.0)
[2021-05-03 06:12] LABS: Differential Indicated SCAN CRITERIA MET
[2021-05-03] MEDS: Insulin Lispro 100 UNIT/ML INSULN.PEN SC ×4 (06:31→21:33)
[2021-05-03 06:36] LABS: Bedside Glucose 174 mg/dL (70-110)
[2021-05-03 06:50] LABS: ALB/GLOB Ratio 0.8 RATIO (0.9-2.4); AST(SGOT) 19 U/L (15-37); Alanine Aminotransfer ALT/SGPT 25 U/L (16-61); Albumin, Serum 2.8 g/dL (3.2-5.0); Alkaline Phosphatase 72 U/L (45-117); Anion Gap 4 (5-15); BUN 37 mg/dL (7-18); BUN/Creat Ratio 31.6 RATIO (10-20); Calcium,Total 9.5 mg/dL (8.5-10.1); Chloride 105 mmol/L (98-107); Cholesterol 159 mg/dL (200); Creatinine, Serum 1.17 mg/dL (0.70-1.30); EST Glomerular Filtration Rate 63 mL/min (>60); Est Glom Filt Rate - Afr Amer 77 mL/min (>60); Estimated Creatinine Clearance 43.07 ml/min; Globulin 3.7 g/dL (2.2-4.2); Glucose 196 mg/dL (74-106); High Density Lipoprotein 41 mg/dL; Magnesium 2.4 mg/dL (1.6-2.6); Potassium 4.4 mmol/L (3.5-5.1); Protein, Total 6.5 g/dL (6.4-8.2); Sodium Level 142 mmol/L (136-145); Triglycerides 118 mg/dL; Very Low Density Lipoprotein 24 mg/dL (5-40)
[2021-05-03] MEDS: Ipratropium/Albuterol Sulfate 3 ML AMPUL.NEB INHALATION ×3 (07:05→19:54)
--- NOTE | 2021-05-03 10:13 | PN.HOSP_ITS ---
Subjective Subjective Patient is an 80-year-old gentleman who presented with progressive shortness of breath over 2 weeks period. Imaging studies obtained on admission demonstrated cardiomegaly and CHF with bibasilar atelectasis/infiltrate. Admitted to a monitored bed for subsequent management Objective Data Objective Data Vital Signs: Vital Signs Temp Pulse Resp BP Pulse Ox 98.4 F 91 22 H 151/57 H 98 05/03/21 08:15 05/03/21 08:15 05/03/21 08:15 05/03/21 08:15 05/03/21 09:53 Oxygen Flow Rate (L/min) 4 Oxygen Delivery Method Nasal Cannula Weight: 95.5 kg Body Mass Index (BMI) 35.1 Intake & Output: Intake and Output for Last 24 Hours 05/01/21 05/02/21 05/03/21 23:59 23:59 23:59 Intake Total 760 / 760 100 / 100 Output Total 1950 / 1950 500 / 500 Balance -1190 / -1190 -400 / -400 Lab / Micro Data Result Diagrams: 05/03/21 05:05 05/03/21 05:05 Labs: Laboratory Results - last 24 hr 05/02/21 13:41: WBC 5.7, RBC 3.67 L, Hgb 11.7 L, Hct 36.0 L, MCV 98.1 H, MCH 31.9, MCHC 32.5, RDW Std Deviation 46.0 H, RDW Coeff of John 12.9, Plt Count 88 L , MPV 10.8, Immature Gran % (Auto) 0.300, Neut % (Auto) 74.6 H, Lymph % (Auto) 14.8 L, [place] % (Auto) 5.1, Eos % (Auto) 4.7, Baso % (Auto) 0.5, Absolute Neuts (auto) 4.3, Absolute Lymphs (auto) 0.85, Nucleated RBC % 0, Platelet Estimate MOD DEC 05/02/21 13:41: Sodium 146 H, Potassium 4.5, Chloride 111 H, Carbon Dioxide 33.0 H, Anion Gap 2 L, BUN 36 H, Creatinine 1.30, Estim Creat Clear Calc 40.22, Est GFR (MDRD) Af Amer 68, Est GFR (MDRD) Non-Af 56 L, BUN/Creatinine Ratio 27.7 H, Glucose 182 H, Calcium 9.1, Troponin I High Sens 35 05/02/21 13:41: B-Natriuretic Peptide 210.6 H 05/02/21 13:41: Magnesium 1.2 L 05/02/21 14:20: Procalcitonin 0.12 H 05/02/21 16:20: Troponin I High Sens 46 05/02/21 16:34: POC Glucose 140 H 05/02/21 20:35: Troponin I High Sens 53 05/02/21 20:51: POC Glucose 314 H 05/03/21 05:05: WBC 3.9 L, RBC 3.54 L, Hgb 10.7 L, Hct 33.2 L, MCV 93.8, MCH 30.2, MCHC 32.2, RDW Std Deviation 43.9, RDW Coeff of John 12.9, Plt Count 76 L, MPV 11.4, Immature Gran % (Auto) 0.300, Neut % (Auto) 85.6 H, Lymph % (Auto) 11.5 L, [place] % (Auto) 2.0, Eos % (Auto) 0.3, Baso % (Auto) 0.3, Absolute Neuts (auto) 3.4, Absolute Lymphs (auto) 0.45 L, Nucleated RBC % 0, Diff Path Review July05/03/21 05:05: Sodium 142, Potassium 4.4, Chloride 105, Carbon Dioxide 33.0 H, Anion Gap 4 L, BUN 37 H, Creatinine 1.17, Estim Creat Clear Calc 43.07, Est GFR (MDRD) Af Amer 77, Est GFR (MDRD) Non-Af 63, BUN/Creatinine Ratio 31.6 H, Glucose 196 H, Calcium 9.5, Magnesium 2.4, Total Bilirubin 0.40, AST 19, ALT 25, Alkaline Phosphatase 72, Total Protein 6.5, Albumin 2.8 L, Globulin 3.7, Albumin/Globulin Ratio 0.8 L, Triglycerides 118, Cholesterol 159, LDL Cholesterol 94, VLDL Cholesterol 24, HDL Cholesterol 41, TSH 0.90 05/03/21 06:30: POC Glucose 174 H Micro: Microbiology 05/02/21 16:55 Sputum, Expectorated/Coughed Gram Stain - Final 05/02/21 16:25 Urine, Clean Catch Legionella Antigen - Final 05/02/21 16:25 Urine, Clean Catch Streptococcus pneumoniae Antigen (M - Final 05/02/21 13:49 Nasal Secretion SARS-CoV-2 Antigen (Rapid) - Final Radiography Diagnostic Testing: Radiology Impression Chest X-Ray 05/02/21 13:51 IMPRESSION: Bilateral pleural effusions and bibasilar infiltrates superimposed on CHF. Well-defined pulmonary nodules are seen in the peripheral lateral aspect of the right lower lobe. Electronically Signed: Ishaan La MD at 14:10 EST , Chest X-Ray 05/03/21 05:55 IMPRESSION: Cardiomegaly and CHF with bibasilar atelectasis and/or infiltrates. There has been no change. Electronically Signed: Ishaan La MD at 9:49 EST , Physical Exam Narrative GENERAL: cooperative HEENT: Atraumatic; EYES; Anicteric, Normal Conjunctiva NECK; supple, normal thyroid, RESPIRATORY: Diminished to auscultation CARDIOVASCULAR: Regular S1 S2, GI: soft, normoactive bowel sounds, : No Renal angle tenderness; EXTREMITIES: edema, no clubbing, MUSCULOSKELETAL: no muscle wasting NEURO: Awake; no lateralizing signs. SKIN: No Rash PSYCH; Flat affect Assessment & Plan Assessment/Plan (1) Acute exacerbation of CHF (congestive heart failure): QUALIFIERS: Heart failure type: unspecified Qualified Code(s): I50.9 - Heart failure, unspecified (2) COPD exacerbation: (3) Acute and chronic respiratory failure with hypoxia: PLAN: Patient is an 80-year-old gentleman who presented with progressive shortness of breath over 2 weeks period. Imaging studies obtained on admission demonstrated cardiomegaly and CHF with bibasilar atelectasis/infiltrate. Admitted to a monitored bed for subsequent management 1. Acute on chronic hypoxic respiratory failure ?Secondary to decompensated congestive heart failure. Admitted to monitored bed with treatment of patient underlying etiology. Patient was placed on supplemental oxygen as well 2. Acute on chronic congestive heart failure with preserved ejection fraction ?Patient echo on record obtained on 06/25/2017 demonstrated EF of 65%. Patient has been admitted to monitored bed currently being managed with IV Lasix, strict input output, fluid restriction Daily weights in addition to supplemental oxygen 3. Pulmonary nodules ?Patient informed of result to follow-up with PCP for serial imaging 4. Hypertension - Blood pressure controlled, home medications continued with dose adjustment as needed 5. Chronic hypoxic respiratory failure ?Secondary to COPD patient had mild bronchospasm with wheezing systemic steroid added to patient's therapy 6. Anemia - Secondary to chronic disorder monitoring H&H and transfuse if patient becomes symptomatic or hemoglobin falls below 7 7. Class I obesity with BMI of 35 ?Weight loss advised 8. Dyslipidemia -Patient is on statin therapy, continued at home dose 9. Diabetes mellitus type II -patient's oral hypoglycemics held. Placed on long acting insulin, Accu-Cheks a.c. and at bedtime and covered with sliding scale insulin 10. Thrombocytopenia ?Appears to be some chronicity or avoid heparin and its related products 11. Hypothyroidism - Patient is on liothyronine home dose continued 12. Obstructive sleep apnea BiPAP nightly ordered 13. DVT prophylaxis ?Bilateral SCDs Charges/Coding Visit Charges Inpatient E&M: 48838 [facility] Hosp L3
[2021-05-03] MEDS: Famotidine 20 MG Tablet PO ×2 (10:15→21:16)
[2021-05-03] MEDS: Lisinopril 20 MG Tablet PO (10:16)
[2021-05-03] MEDS: hydroCHLOROthiazide 12.5mg 12.5 MG PO (10:16)
[2021-05-03] MEDS: Atorvastatin Calcium 80 MG Tablet PO (10:16)
[2021-05-03] MEDS: Aspirin E.C. 81 MG Tablet PO (10:16)
[2021-05-03] MEDS: Furosemide 40 MG/4 ML Vial IV ×2 (10:17→17:38)
[2021-05-03] MEDS: Menthol/Lanolin/Calamine/Znox 113 GM Tube 1 APPLIC TOPICAL ×4 (10:17→21:19)
--- NOTE | 2021-05-03 10:20 | CASEMGMT ---
ALMA RINALDI Face to Face with patient for initial transition planning/care coordination assessment. ALMA RINALDI introduced self and role at [facility]. Patient lying in bed, alert and oriented. Patient willing to participate in assessment and is able to answer all questions appropriately. Care providers, pharmacy, and demographics verified. Patient wishes to discharge home, denies need for home health at this time. Patient states he has no further needs or concerns at this time. CM to follow for discharge planning needs that may arise. PCP: Magdalena Specialists: Elisa, aquatics specialist but doesn't care to follow with him anymore [facility] Insurance: [employer] Prescription Benefit: yes Living Will/HPOA: yes, daughter Katie Singletary LNOK: daughter Living Arrangements: Patient lives alone in a mobile home with 6 steps and railing to enter the home. Patient states he is independent at home. Transportation: self, daughter, [facility] D[facility]/HHC: patient states he has shower chair, grab bars, walker, wheelchair, nebulizer, pulse ox, and home oxygen with portable concentrator through [place] at 2lpm. Patient denies previous HHC or SNF. ALMA RINALDI discussed palliative care and patient agreeable to speak with palliative for supportive care with COPD. CM to update hospitalist. Disposition Plan: [place] to discharge home with family support and follow-up plans in place. Tamara ALEMAN, RN, CM
--- NOTE | 2021-05-03 10:41 | CASEMGMT ---
Pt qualifies for palliative c/s per palliative screening tool and Dr. Godwin is agreeable. Order placed and referral e-mailed to palliative. Love MARQUEZ CM
[2021-05-03 11:10] LABS: Bedside Glucose 304 mg/dL (70-110)
[2021-05-03 15:22] LABS: Pathologist Review Reviewed
[2021-05-03] MEDS: Albuterol 2.5 MG/3 ML VIAL.NEB. INHALATION (17:46)
[2021-05-03 18:07] LABS: Bedside Glucose 201 mg/dL (70-110)
[2021-05-03 22:16] LABS: Bedside Glucose 290 mg/dL (70-110)
[2021-05-04] VITALS (12 sets, daily range): BP systolic 106–149; BP diastolic 53–77; PULSE 75–106; RESP 18–24; TEMP 36.4–36.6; O2SAT 86–99
[2021-05-04] MEDS: Insulin Lispro 100 UNIT/ML INSULN.PEN SC ×2 (05:28→11:37)
[2021-05-04 05:36] LABS: Bedside Glucose 208 mg/dL (70-110)
[2021-05-04 06:10] LABS: Absolute Lymphocyte Count 0.64 X10^3/uL (0.83-4.51); Absolute Neutrophil Count 7.6 X10^3/uL (2.0-7.7); Hematocrit 33.7 % (40-54); Hemoglobin 11.4 g/dL (13.0-16.5); Lymphocyte # 0.64 X10^3/ul (0.83-4.51); Lymphocyte % 7.5 % (19-41); Mean Corp Hgb Conc 33.8 g/dL (32-36); Mean Corpuscular Hgb 31.8 pg (27.0-32.0); Mean Corpuscular Volume 94.1 fL (80-94); Mean Platelet Vol. 11.4 fl (6.2-12.0); Monocyte# 0.26 X10^3/uL; NRBC Flagged by Analyzer 0 % (0-5); Neutrophil # 7.58 X10^3/uL (2.7-7.7); Neutrophil % 88.8 % (47-70); POSITIVE COUNT YES; Platelet Count 85 K/mm3 (150-450); RBC Distribution Width CV 13.1 % (11.6-14.6); Red Blood Count 3.58 M/mm3 (4.6-6.2); White Blood Count 8.5 K/mm3 (4.4-11.0)
[2021-05-04 06:40] LABS: Anion Gap 3 (5-15); BUN 58 mg/dL (7-18); BUN/Creat Ratio 36.7 RATIO (10-20); Calcium,Total 9.7 mg/dL (8.5-10.1); Chloride 101 mmol/L (98-107); Creatinine, Serum 1.58 mg/dL (0.70-1.30); EST Glomerular Filtration Rate 45 mL/min (>60); Est Glom Filt Rate - Afr Amer 54 mL/min (>60); Glucose 222 mg/dL (74-106); Potassium 4.5 mmol/L (3.5-5.1); Sodium Level 140 mmol/L (136-145)
[2021-05-04] MEDS: Ipratropium/Albuterol Sulfate 3 ML AMPUL.NEB INHALATION ×3 (06:51→15:04)
--- NOTE | 2021-05-04 07:47 | PN.HOSP_ITS ---
Subjective Subjective Patient seen admit to improvement in his breathing. Plan is to assess patient for possible discharge Objective Data Objective Data Vital Signs: Vital Signs Temp Pulse Resp BP Pulse Ox 97.9 F 76 24 H 106/77 96 05/04/21 05:30 05/04/21 06:52 05/04/21 06:52 05/04/21 05:30 05/04/21 06:52 Oxygen Flow Rate (L/min) 3 Oxygen Delivery Method Nasal Cannula Weight: 94.9 kg Body Mass Index (BMI) 35.1 Intake & Output: Intake and Output for Last 24 Hours 05/02/21 05/03/21 05/04/21 23:59 23:59 23:59 Intake Total 760 / 760 955 / 955 75 / 75 Output Total 1950 / 1950 1800 / 2250 675 / 675 Balance -1190 / -1190 -845 / -1295 -600 / -600 Lab / Micro Data Result Diagrams: 05/04/21 05:35 05/04/21 05:35 Labs: Laboratory Results - last 24 hr 05/03/21 05:05: Diff Path Review Reviewed 05/03/21 10:58: POC Glucose 304 H 05/03/21 16:19: POC Glucose 201 H 05/03/21 21:31: POC Glucose 290 H 05/04/21 05:27: POC Glucose 208 H 05/04/21 05:35: WBC 8.5, RBC 3.58 L, Hgb 11.4 L, Hct 33.7 L, MCV 94.1 H, MCH 31.8, MCHC 33.8, RDW Std Deviation 45.0 H, RDW Coeff of John 13.1, Plt Count 85 L , MPV 11.4, Immature Gran % (Auto) 0.700, Neut % (Auto) 88.8 H, Lymph % (Auto) 7.5 L, [place] % (Auto) 3.0, Eos % (Auto) 0.0, Baso % (Auto) 0.0, Absolute Neuts (auto) 7.6, Absolute Lymphs (auto) 0.64 L, Nucleated RBC % 0 05/04/21 05:35: Sodium 140, Potassium 4.5, Chloride 101, Carbon Dioxide 36.0 H, Anion Gap 3 L, BUN 58 H, Creatinine 1.58 H, Estim Creat Clear Calc 31.90, Est GFR (MDRD) Af Amer 54 L, Est GFR (MDRD) Non-Af 45 L, BUN/Creatinine Ratio 36.7 H , Glucose 222 H, Calcium 9.7 Micro: Microbiology 05/02/21 16:55 Sputum, Expectorated/Coughed Gram Stain - Final 05/02/21 16:25 Urine, Clean Catch Legionella Antigen - Final 05/02/21 16:25 Urine, Clean Catch Streptococcus pneumoniae Antigen (M - Final 05/02/21 13:49 Nasal Secretion SARS-CoV-2 Antigen (Rapid) - Final Radiography Diagnostic Testing: Radiology Impression Echocardiogram 05/02/21 16:02 Interpretation Summary The study was technically difficult. Contrast injection was performed. Based upon the 2D echocardiographic and contrast enhanced images obtained there appears to be grossly normal left ventricular size, wall motion, and systolic function. The estimated ejection fraction is 65 %. Trivial mitral valve insufficiency. Mild to moderate aortic stenosis. Diastolic function is indeterminate. Ordering Physician: Tracy Angel Referring Physician: Adrianna Nichols Performed By: Asia Cates, RDCS, RVT Chest X-Ray 05/03/21 05:55 IMPRESSION: Cardiomegaly and CHF with bibasilar atelectasis and/or infiltrates. There has been no change. Electronically Signed: Ishaan La MD at 9:49 EST , Physical Exam Narrative GENERAL: cooperative HEENT: Atraumatic; EYES; Anicteric, Normal Conjunctiva NECK; supple, normal thyroid, RESPIRATORY: Diminished to auscultation CARDIOVASCULAR: Regular S1 S2, GI: soft, normoactive bowel sounds, : No Renal angle tenderness; EXTREMITIES: edema, no clubbing, MUSCULOSKELETAL: no muscle wasting NEURO: Awake; no lateralizing signs. SKIN: No Rash PSYCH; Flat affect Assessment & Plan Assessment/Plan (1) Acute exacerbation of CHF (congestive heart failure): QUALIFIERS: Heart failure type: unspecified Qualified Code(s): I50.9 - Heart failure, unspecified (2) COPD exacerbation: (3) Acute and chronic respiratory failure with hypoxia: PLAN: Patient is an 80-year-old gentleman who presented with progressive shortness of breath over 2 weeks period. Imaging studies obtained on admission demonstrated cardiomegaly and CHF with bibasilar atelectasis/infiltrate. Admitted to a monitored bed for subsequent management 1. Acute on chronic hypoxic respiratory failure ?Secondary to decompensated congestive heart failure. Admitted to monitored bed with treatment of patient underlying etiology. Patient was placed on supplemental oxygen as well ?05/04/2021 2. Acute on chronic congestive heart failure with preserved ejection fraction ?Patient echo on record obtained on 06/25/2017 demonstrated EF of 65%. Patient has been admitted to monitored bed currently being managed with IV Lasix, strict input output, fluid restriction Daily weights in addition to supplemental oxygen ?Repeat echo obtained on 05/03/2021 demonstrated EF of 65% 3. Pulmonary nodules ?Patient informed of result to follow-up with PCP for serial imaging 4. Hypertension - Blood pressure controlled, home medications continued with dose adjustment as needed 5. Chronic hypoxic respiratory failure ?Secondary to COPD patient had mild bronchospasm with wheezing systemic steroid added to patient's therapy 6. Anemia - Secondary to chronic disorder monitoring H&H and transfuse if patient becomes symptomatic or hemoglobin falls below 7 7. Class I obesity with BMI of 35 ?Weight loss advised 8. Dyslipidemia -Patient is on statin therapy, continued at home dose 9. Diabetes mellitus type II -patient's oral hypoglycemics held. Placed on long acting insulin, Accu-Cheks a.c. and at bedtime and covered with sliding scale insulin 10. Thrombocytopenia ?Appears to be some chronicity or avoid heparin and its related products 11. Hypothyroidism - Patient is on liothyronine home dose continued 12. Obstructive sleep apnea BiPAP nightly ordered 13. DVT prophylaxis ?Bilateral SCDs Charges/Coding Visit Charges Inpatient E&M: 74279 Subs Hosp L2
[2021-05-04] MEDS: Famotidine 20 MG Tablet PO (08:54)
[2021-05-04] MEDS: Menthol/Lanolin/Calamine/Znox 113 GM Tube 1 APPLIC TOPICAL (08:54)
[2021-05-04] MEDS: hydroCHLOROthiazide 12.5mg 12.5 MG PO (08:55)
[2021-05-04] MEDS: Furosemide 40 MG/4 ML Vial IV (08:55)
[2021-05-04] MEDS: Atorvastatin Calcium 80 MG Tablet PO (08:55)
[2021-05-04] MEDS: Aspirin E.C. 81 MG Tablet PO (08:55)
[2021-05-04] MEDS: 0.9% Saline Lock 10 ML Syringe IV (08:55)
[2021-05-04] MEDS: Lisinopril 20 MG Tablet PO (08:55)
--- NOTE | 2021-05-04 09:29 | PCM.CONS.P ---
Assessment & Plan Assessment/Plan (1) Acute and chronic respiratory failure with hypoxia: (2) COPD exacerbation: (3) Acute exacerbation of CHF (congestive heart failure): QUALIFIERS: Heart failure type: unspecified Qualified Code(s): I50.9 - Heart failure, unspecified (4) Bilateral pleural effusion: (5) Anemia in chronic illness: PLAN: Corona West is an 80-year-old male with past medical history listed below, referred to [facility] Palliative for symptoms related to chronic COPD. If patient would prefer Palliative to follow. Palliative to reach out to patient after discharge to offer services. Possible plan as follows: 1) Acute on chronic respiratory failure/COPD/ pleural effusion/CHF/CARMEN: Maintain oxygen to keep sats >90%. Continue diuretics as ordered. Education to include early symptom detection of COPD exacerbation/CHF and when to notify PCP or managing specialist. Would recommend Pulmonary referral and possible sleep study for Bipap. 2) HTN/DM/Hyperlipidemia/anemia/hypothyroidism/ obesity: Palliative can support and educate chronic conditions but defer management to PCP and specialists. Discussed Life alert button for safety while living home alone Thank you for the opportunity to participate in this patient's care, please do not hesitate to contact [facility] with any further questions or concerns. Palliative direct line is [phone]. We will follow up after discharge to discuss services further. Palliative brochure and business card given to patient. Greater than 50% of F2F visit dedicated to education and counseling of palliative care services, medications, comorbid conditions and potential assistance with management, and plan of care moving forward. Start time: 829 End time: 951 HPI Consult Data Date of Consult: 05/04/21 HPI Narrative HPI Narrative: Corona West is an 80-year-old male with past medical history listed below, referred to [facility] Palliative for symptoms related to chronic COPD. He presented to the ER on 05/02/21 with a 2-week history of increasing shortness of breath. Reported to the ER that he could only take 4-5 steps before becoming very winded. Also orthopneic and sleeping upright in a recliner. No chest pain. Baseline cough is unchanged. He has been using his nebulizer more frequently without significant improvement. He states he was in [place] ER a week ago for same symptoms and they could not find anything wrong. Denies any significant productive sputum but has had ongoing cough with chest tightness/wheezing. Worsened since the recent large snowfall and shoveling outside. Reports slightly increased lower extremity edema. He takes Torsemide 5 mg once daily which was cut in half a few months ago. He quit smoking in 2010. He had diffuse wheezing in all lung hollis and 2+ pitting edema bilaterally. T 97.9, heart rate initially 107 with most recent repeat 100, BP 180/61, respiratory rate 30, initially 96% on 4 L nasal cannula decreased to 94% on 2.5 L nasal cannula. Labs show hemoglobin of 11.7 which is unchanged from labs at [place] on 04/23. He has a normal white count. Sodium is 146, BUN/creatinine 36/1.3. EKG is nonischemic and troponin is 35. proBNP is 210. Chest x-ray shows CHF with bilateral pleural effusions. He was treated with IV Lasix 40 mg and admitted due for exacerbation of COPD due to increased symptoms and oxygen demand up to 4 liters. Admit to PCU, maintain on cardiac telemetry, obtain cardiac enzyme series, obtain serial EKGs, continue IV lasix diuresis, monitor I/Os, maintain on intake restriction. Chest Xray on 05/03/21 showed Cardiomegaly and CHF with bibasilar atelectasis and/or infiltrates. There has been no change. ECHO on 05/03/21 showed Based upon the 2D echocardiographic and contrast enhanced images obtained there appears to be grossly normal left ventricular size, wall motion, and systolic function.The estimated ejection fraction is 65 %. Trivial mitral valve insufficiency. Mild to moderate aortic stenosis. Diastolic function is indeterminate. Patient's PCP is Magdalena Specialists: Elisa, clinical pharmacy specialist but doesn't care to follow with him anymore [facility]erred [facility], Living Will/HPOA: yes, daughter Katie Singletary. Patient requested DNR-CCA, no intubation status. Patient lives alone in a mobile home with 6 steps and railing to enter the home. Patient states he is independent at home.Transportation: self, daughter, [facility]/HHC: patient states he has shower chair, grab bars, walker, wheelchair, nebulizer, pulse ox, and home oxygen with portable concentrator through [employer] at 2lpm. Plan is to discharge home with family support Seen today in his PCU room. Alert and pleasant, obese elderly male. Noted conversational dyspnea 4-7 words, but reports that he feels much better. Lungs clear left lobes and slightly diminished in right lobes. BLE is resolved. Discussed involvement with pulmonary. Does not want to return to Dr. Pérez but is open to another referral. Is not able to handle the bipap and could benefit from a sleep study. Denies any fatigue, mental status changes, dizziness, nasal or chest congestion or pain, abdominal pain, n/v/constipation. Does have dyspnea with exertion,but feels that it is improved. Does live by himself but has assistance with brother in law and daughter. Palliative services explained and contrasted to hospice care. Reports that was on Palliative care before hospice. Agreed to have Palliative liaisons call at discharge to discuss further. [facility] Medical History Chronic respiratory failure with hypoxia COPD (chronic obstructive pulmonary disease) Diabetes mellitus, type 2 Former tobacco use HLD (hyperlipidemia) HTN (hypertension) Hypothyroidism Obesity Home Medications aspirin [Aspirin Low Dose] 81 mg PO DAILY 05/02/21 [History Last Taken 05/02/21] atorvastatin 80 mg PO DAILY 05/02/21 [History Last Taken 05/01/21] cholecalciferol (vitamin D3) 25 mcg PO DAILY 05/02/21 [History Last Taken 05/02/21] glimepiride 4 mg PO DAILY 05/02/21 [History Last Taken 05/01/21] ipratropium-albuterol 3 ml INHALATION 4X/DAY 05/02/21 [History Last Taken 05/02/21] liothyronine 25 mcg PO DAILY 05/02/21 [History Last Taken 05/02/21] lisinopril-hydrochlorothiazide 1 tab PO DAILY 05/02/21 [History Last Taken 05/02/21] metformin 1,000 mg PO BID 05/02/21 [History Last Taken 05/02/21] omega-3 fatty acids-vitamin E [Fish Oil] 2 cap PO DAILY 05/02/21 [History Last Taken 05/01/21] tiotropium bromide [Spiriva with HandiHaler] 18 mcg INHALATION DAILY 05/02/21 [History Last Taken 05/02/21] torsemide 5 mg PO DAILY 05/02/21 [History Last Taken 05/01/21] vitamins A,C,Y-praz-ocsoht [PreserVision AREDS] 1 cap PO BID 05/02/21 [History Last Taken 05/02/21] Allergy/AdvReac Type Severity Reaction Status Date / Time codeine AdvReac Upset Verified 05/02/21 14:26 Stomach Family History Mother CVA (cerebral vascular accident) Heart disease Myocardial infarction Hx of CABG Hypertension Father CVA (cerebral vascular accident) Heart disease Surgical History S/P cataract extraction Social History household members: none housing: house Smoking Status: Former smoker how long ago did patient quit smoking: Quit 2010, prior 1 ppd since teen. alcohol intake: former year quit: 2010 substance use type: does not use ROS Constitutional Constitutional: Reports systems reviewed and no addt'l complaints, except as documented and as per HPI Cardiovascular Cardiovascular: Reports systems reviewed and no addt'l complaints, except as documented and as per HPI Respiratory/Chest Respiratory/Chest: Reports as per HPI, cough, dry cough and dyspnea on exertion Gastrointestinal Gastrointestinal: Reports systems reviewed and no addt'l complaints, except as documented and as per HPI Genitourinary Genitourinary: Reports as per HPI and none Musculoskeletal Musculoskeletal: Reports none Integumentary Integumentary: Reports none Neurologic Neurologic: Reports none Psychiatric Psychiatric: Reports none Physical Exam Const alert, oriented x3 and no apparent distress General Appearance: cooperative and comfortable Eyes EOMs intact bilaterally, conjunctivae normal and no scleral icterus Neck full ROM and supple Resp normal respiratory effort, normal air movement and no use of accessory muscles Resp Narrative: conversational dyspnea noted Auscultation: diminished lung sounds right throughout Cardio regular rate and regular rhythm GI normal to inspection, nondistended, normoactive bowel sounds Back/Spine normal ROM Extremity normal to inspection and no clubbing, cyanosis or edema Neuro oriented x3, CN's II-XII intact bilaterally, moves all extremities and no focal motor deficits
--- NOTE | 2021-05-04 09:54 | CASEMGMT ---
Addendum entered by Tamara Gonzalez 05/04/21 12:47: This ALMA CM to room to discuss d/c plan and pt states no need for any HHC or OP therapy at this time. Pt voices no further questions/concerns/needs. Love MARQUEZ CM Addendum entered by Tamara Gonzalez 05/04/21 12:42: Pt maintained sats on his 4L w/ ambulation, so no new order needed for [place]. Love MARQUEZ CM Original Note: Call to [facility] medical and per rep, pt's home oxygen order is for 2-4L continuous. Love MARQUEZ CM
--- NOTE | 2021-05-04 11:21 | PCM.DC.SUM ---
Providers Date of Admission: 05/02/21 Primary Care Physician: Dr. Adrianna Nichols, DO Reason For Visit: ACUTE RESP INSUFFICIENCY ON CHRONIC RESP FAILURE Diagnosis Discharge Diagnosis (1) Acute exacerbation of CHF (congestive heart failure): Status: Chronic Code(s): I50.9 - Heart failure, unspecified Qualifiers: Heart failure type: unspecified Qualified Code(s): I50.9 - Heart failure, unspecified (2) COPD exacerbation: Status: Chronic Code(s): J44.1 - Chronic obstructive pulmonary disease with (acute) exacerbation (3) Acute and chronic respiratory failure with hypoxia: Status: Chronic Code(s): J96.21 - Acute and chronic respiratory failure with hypoxia Medications at Discharge Home Medications PreserVision AREDS 1 cap PO BID 05/02/21 Spiriva with HandiHaler 18 mcg INHALATION DAILY 05/02/21 aspirin [Aspirin Low Dose] 81 mg PO DAILY 05/02/21 atorvastatin 80 mg PO DAILY 05/02/21 cholecalciferol (vitamin D3) 25 mcg PO DAILY 05/02/21 glimepiride 4 mg PO DAILY 05/02/21 ipratropium-albuterol 3 ml INHALATION 4X/DAY 05/02/21 liothyronine 25 mcg PO DAILY 05/02/21 lisinopril-hydrochlorothiazide 1 tab PO DAILY 05/02/21 metformin 1,000 mg PO BID 05/02/21 omega-3 fatty acids-vitamin E 2 cap PO DAILY 05/02/21 prednisone 40 mg PO DAILY #10 tab 05/04/21 torsemide 10 mg PO DAILY #60 tab 05/04/21 Hospital Course Procedures 2-D Echocardiogram Summary of Care Provided Minutes Spent on Discharge: 40 Hospital Course: Patient is an 80-year-old gentleman who presented with progressive shortness of breath over 2 weeks period. Imaging studies obtained on admission demonstrated cardiomegaly and CHF with bibasilar atelectasis/infiltrate. Admitted to a monitored bed for subsequent management 1. Acute on chronic hypoxic respiratory failure ?Secondary to decompensated congestive heart failure. Admitted to monitored bed with treatment of patient underlying etiology. Patient was placed on supplemental oxygen as well ?05/04/2021 2. Acute on chronic congestive heart failure with preserved ejection fraction ?Patient echo on record obtained on 06/25/2017 demonstrated EF of 65%. Patient has been admitted to monitored bed currently being managed with IV Lasix, strict input output, fluid restriction Daily weights in addition to supplemental oxygen ?Repeat echo obtained on 05/03/2021 demonstrated EF of 65% 3. Pulmonary nodules ?Patient informed of result to follow-up with PCP for serial imaging 4. Hypertension - Blood pressure controlled, home medications continued with dose adjustment as needed 5. Chronic hypoxic respiratory failure ?Secondary to COPD patient had mild bronchospasm with wheezing systemic steroid added to patient's therapy 6. Anemia - Secondary to chronic disorder monitoring H&H and transfuse if patient becomes symptomatic or hemoglobin falls below 7 7. Class I obesity with BMI of 35 ?Weight loss advised 8. Dyslipidemia -Patient is on statin therapy, continued at home dose 9. Diabetes mellitus type II -patient's oral hypoglycemics held. Placed on long acting insulin, Accu-Cheks a.c. and at bedtime and covered with sliding scale insulin 10. Thrombocytopenia ?Appears to be some chronicity or avoid heparin and its related products 11. Hypothyroidism - Patient is on liothyronine home dose continued 12. Obstructive sleep apnea BiPAP nightly ordered 13. DVT prophylaxis ?Bilateral SCDs Physical Exam Narrative GENERAL: cooperative HEENT: Atraumatic; EYES; Anicteric, Normal Conjunctiva NECK; supple, normal thyroid, RESPIRATORY: Diminished to auscultation CARDIOVASCULAR: Regular S1 S2, GI: soft, normoactive bowel sounds, : No Renal angle tenderness; EXTREMITIES: edema, no clubbing, MUSCULOSKELETAL: no muscle wasting NEURO: Awake; no lateralizing signs. SKIN: No Rash PSYCH; Flat affect Weight / BMI Weight Weight: 94.9 kg Body Mass Index (BMI) 35.1 ABG / Lab / Microbiology Data Result Diagrams: 05/04/21 05:35 05/04/21 05:35 Laboratory: Laboratory Results - last 24 hr 05/03/21 05:05: Diff Path Review Reviewed 05/03/21 16:19: POC Glucose 201 H 05/03/21 21:31: POC Glucose 290 H 05/04/21 05:27: POC Glucose 208 H 05/04/21 05:35: WBC 8.5, RBC 3.58 L, Hgb 11.4 L, Hct 33.7 L, MCV 94.1 H, MCH 31.8, MCHC 33.8, RDW Std Deviation 45.0 H, RDW Coeff of John 13.1, Plt Count 85 L, MPV 11.4, Immature Gran % (Auto) 0.700, Neut % (Auto) 88.8 H, Lymph % (Auto) 7.5 L, [place] % (Auto) 3.0, Eos % (Auto) 0.0, Baso % (Auto) 0.0, Absolute Neuts (auto) 7.6, Absolute Lymphs (auto) 0.64 L, Nucleated RBC % 0 05/04/21 05:35: Sodium 140, Potassium 4.5, Chloride 101, Carbon Dioxide 36.0 H, Anion Gap 3 L, BUN 58 H, Creatinine 1.58 H, Estim Creat Clear Calc 31.90, Est GFR (MDRD) Af Amer 54 L, Est GFR (MDRD) Non-Af 45 L, BUN/Creatinine Ratio 36.7 H, Glucose 222 H, Calcium 9.7 Microbiology: Microbiology 05/02/21 16:55 Sputum, Expectorated/Coughed Gram Stain - Final 05/02/21 16:55 Sputum, Expectorated/Coughed Respiratory Culture - Preliminary Appears to be normal respiratory kennedy. Further studies to follow. 05/02/21 16:25 Urine, Clean Catch Legionella Antigen - Final 05/02/21 16:25 Urine, Clean Catch Streptococcus pneumoniae Antigen (M - Final 05/02/21 13:49 Nasal Secretion SARS-CoV-2 Antigen (Rapid) - Final Radiography Diagnostic Testing: Radiology Impression Echocardiogram 05/02/21 16:02 Interpretation Summary The study was technically difficult. Contrast injection was performed. Based upon the 2D echocardiographic and contrast enhanced images obtained there appears to be grossly normal left ventricular size, wall motion, and systolic function. The estimated ejection fraction is 65 %. Trivial mitral valve insufficiency. Mild to moderate aortic stenosis. Diastolic function is indeterminate. Ordering Physician: Tracy Angel Referring Physician: Adrianna Nichols Performed By: Asia Cates, RDCS, RVT D/C Instructions Discharge Diet: 8 Cup Fluid Restriction and 2000 mg Sodium Diet Discharge Activity: Return to Normal Activity Call your doctor if you observe: Fever of 101 or Higher, Shortness of breath, Fainting spells and Chest pain Meaningful Use Info Meaningful Use Diagnoses (Choose all that apply): CHF CHF RICH/ARB ordered at discharge?: Yes Documented LVEF (%): 65 Discharge Plan Admission Admit Date/Time: 05/02/21 15:53 Attending Provider: Irwin Godwin Primary Care Provider: Adrianna Nichols Discharge Orders/Prescriptions Prescriptions: New prednisone 20 mg tablet 40 mg PO DAILY Qty: 10 RF: 0 torsemide 10 mg tablet 10 mg PO DAILY Qty: 60 RF: 0 Continued atorvastatin 80 mg tablet 80 mg PO DAILY RF: 0 ipratropium-albuterol 0.5 mg-3 mg(2.5 mg base)/3 mL solution for nebulization 3 ml inhalation 4X/DAY RF: 0 liothyronine 25 mcg tablet 25 mcg PO DAILY RF: 0 metformin 1,000 mg tablet 1,000 mg PO BID RF: 0 glimepiride 4 mg tablet 4 mg PO DAILY RF: 0 Spiriva with HandiHaler 18 mcg capsule, w/inhalation device 18 mcg INHALATION DAILY RF: 0 lisinopril-hydrochlorothiazide 20-12.5 mg tablet 1 tab PO DAILY RF: 0 aspirin [Aspirin Low Dose] 81 mg Tablet,Delayed Release (Dr/Ec) 81 mg PO DAILY RF: 0 cholecalciferol (vitamin D3) 25 mcg (1,000 unit) Capsule 25 mcg PO DAILY RF: 0 omega-3 fatty acids-vitamin E 1,000 mg Capsule 2 cap PO DAILY RF: 0 PreserVision AREDS [id number] Capsule 1 cap PO BID RF: 0 Discontinued torsemide 5 mg tablet 5 mg PO DAILY RF: 0 Referrals / Follow Up: Adrianna Nichols DO [Primary Care Provider] - Within 1 Week Arnoldo Pérez MD [STAFF PHYSICIAN] - Within 2 Weeks Disposition Disposition (needs filled in before D/C Order can be placed): Home, Self Care Charges/Coding Visit Charges Inpatient E&M: 05925 Disch Hosp
[2021-05-04 11:51] LABS: Bedside Glucose 304 mg/dL (70-110)
== END 2021-05-04 11:26 | disposition home or self-care (01) | DRG 291 ==
LOC: ED 15:03 → PCU 05-03 01:23
PROVIDERS: Admitting Provider Family Medicine; Emergency Provider Physician Assistant; PCP Family Medicine; Visit Provider Internal Medicine
DX: I13.0 Hypertensive heart and chronic kidney disease with heart failure and stage 1 through stage 4 chronic kidney disease, or unspecified chronic kidney disease (principal); J44.1 Chronic obstructive pulmonary disease with (acute) exacerbation; I50.33 Acute on chronic diastolic (congestive) heart failure; E11.22 Type 2 diabetes mellitus with diabetic chronic kidney disease; J96.21 Acute and chronic respiratory failure with hypoxia; D69.6 Thrombocytopenia, unspecified; N18.31 Chronic kidney disease, stage 3a; E87.0 Hyperosmolality and hypernatremia; D63.8 Anemia in other chronic diseases classified elsewhere; E78.5 Hyperlipidemia, unspecified; G47.33 Obstructive sleep apnea (adult) (pediatric); E03.9 Hypothyroidism, unspecified; I35.0 Nonrheumatic aortic (valve) stenosis; I49.49 Other premature depolarization; Z79.84 Long term (current) use of oral hypoglycemic drugs; Z79.82 Long term (current) use of aspirin; Z87.891 Personal history of nicotine dependence; Z66 Do not resuscitate; Z68.35 Body mass index [BMI] 35.0-35.9, adult; E66.9 Obesity, unspecified; Z99.81 Dependence on supplemental oxygen; Z79.899 Other long term (current) drug therapy; R91.1 Solitary pulmonary nodule
CPT/HCPCS: 36415; 71045; 80048; 80053; 80061; 82962; 83735; 83880; 84145; 84443; 84484; 85025; 87070; 87205; 87426; 87449; 93005; 93306; 94002; 94640; 96372; 96374; 96375; 96376; 97802; 99218; 99251; 99285; J7040; Q9957; A4216; C8929; G0378; G0463; J1940

== ENCOUNTER 2021-12-08 08:34 | Emergency (ER) | payer MEDICARE, SELFPAY ==
[2021-12-08 08:35] VITALS: BP 195/81; PULSE 117; RESP 20; TEMP 36.9; O2SAT 92; BMI 34.0
[2021-12-08 08:37] VITALS: BP 195/81; PULSE 114; RESP 20; TEMP 36.9; O2SAT 92
--- NOTE | 2021-12-08 09:43 | EDS_ITS ---
HPI History of Present Illness Chief Complaint: Other, Pain/Inj Informant: patient Onset/Context/Timing Onset: Days (4) Context: Gradual Onset Timing: Continuous Quality: Aching Location: Right foot and ankle, right elbow, left knee Worsened by: Weightbearing, ambulation, palpation Relieved by: Nothing Narrative Narrative: Presents with pain in his right foot, right elbow, and left knee that has been getting worse over the last 4 days. Patient states it is gradually getting worse. Patient states the pain is constant. Patient states the pain feels like aching pain. Patient states it is worse with weightbearing and ambulation. Patient states it is also worse with palpation. Patient states nothing seems to help with it. Patient denies any trauma or injury. Patient denies any paresthesias or weakness. Patient denies any fevers or chills. [facility] Medical History Chronic respiratory failure with hypoxia COPD (chronic obstructive pulmonary disease) Diabetes mellitus, type 2 Former tobacco use HLD (hyperlipidemia) HTN (hypertension) Hypothyroidism Obesity Home Medications aspirin 81 mg tablet,delayed release (Elaina Low Dose Aspirin) 81 mg PO DAILY heart health 05/02/21 [History Last Taken 05/02/21] atorvastatin 80 mg tablet 80 mg PO DAILY CHOLESTEROL 05/02/21 [History Last Taken 05/01/21] cholecalciferol (vitamin D3) 25 mcg (1,000 unit) capsule 25 mcg PO DAILY vitamin 05/02/21 [History Last Taken 05/02/21] glimepiride 4 mg tablet 4 mg PO DAILY diabetes 05/02/21 [History Last Taken 05/01/21] ipratropium 0.5 mg-albuterol 3 mg (2.5 mg base)/3 mL nebulization soln 3 ml inhalation 4X/DAY SOB 05/02/21 [History Last Taken 05/02/21] liothyronine 25 mcg tablet 25 mcg PO DAILY THYROID 05/02/21 [History Last Taken 05/02/21] lisinopril 20 mg-hydrochlorothiazide 12.5 mg tablet 1 tab PO DAILY BP 05/02/21 [History Last Taken 05/02/21] metformin 1,000 mg tablet 500 mg PO BID DM 05/02/21 [History Last Taken 05/02/21] omega-3 fatty acids-vitamin E 1,000 mg capsule 2 cap PO BID SUPPLEMENT 05/02/21 [History Last Taken 05/01/21] tiotropium bromide 18 mcg capsule with inhalation device (Spiriva with HandiHaler) 18 mcg inhalation DAILY SOB 05/02/21 [History Last Taken 05/02/21] allopurinol 100 mg tablet 100 mg PO DAILY #10 tabs 12/08/21 [Rx Last Taken Unknown] prednisone 20 mg tablet 60 mg PO DAILY #15 TABLETS 12/08/21 [Rx Last Taken Unknown] torsemide 10 mg tablet 5 mg PO DAILY 12/08/21 [History Last Taken Unknown] Allergy/AdvReac Type Severity Reaction Status Date / Time codeine AdvReac Upset Verified 12/08/21 08:38 Stomach Family History Mother CVA (cerebral vascular accident) Heart disease Myocardial infarction Hx of CABG Hypertension Father CVA (cerebral vascular accident) Heart disease Surgical History S/P cataract extraction Social History household members: none housing: house Smoking Status: Former smoker how long ago did patient quit smoking: Quit 2011, prior 1 ppd since teen. alcohol intake: former year quit: 2010 substance use type: does not use ROS ROS ED Constitutional Constitutional ED: Denies chills or fever(s) Eyes Eyes: Denies blurry vision or change in vision ENT ENT ED: Denies rhinorrhea or sore throat Cardiovascular Cardiovascular: Denies chest pain or palpitations Respiratory/Chest Respiratory/Chest: Reports cough; Denies dyspnea Gastrointestinal Gastrointestinal: Denies nausea or vomiting Genitourinary Genitourinary ED: Denies dysuria or hematuria Musculoskeletal Musculoskeletal: Reports arthralgias; Denies back pain or neck pain Integumentary Denies abscess or rash Neurologic Neurologic: Denies headache(s) or weakness Allergic/Immunologic Allergic/Immunologic ED: Denies mouth swelling or urticaria EXAM Physical Exam Const Vital Signs: 12/08/21 08:35 12/08/21 08:37 12/08/21 10:41 Temperature 98.4 F 98.4 F Temperature Source Oral Oral Pulse Rate 117 H 114 H Respiratory Rate 20 H 20 H Respiratory Effort Normal Non-Labored Respiratory Pattern Normal Blood Pressure 195/81 H 195/81 H Blood Pressure Mean 119 119 Pulse Ox 92 92 Oxygen Delivery Method Room Air Room Air Positive well nourished and well developed General Appearance ED: well developed and NAD HEENT Reports moist mucous membranes Extremity Extremity Narrative: There is tenderness, mild edema, and mild erythema over the right foot and ankle area. There is also tenderness, and mild erythema over the posterior aspect of the right elbow. There is no obvious deformity. There is no joint effusion noted. Range of motion was limited in the right foot and ankle and right elbow secondary to pain. However, there is good short arc range of motion. Pedal and radial pulses are equal bilaterally. Sensation was intact to light touch bilaterally in the upper and lower extremities. There are no sensory deficits noted. There is also mild tenderness over the left knee. There is no erythema or warmth. There is no effusion. There is no deformity. Range of motion of the left knee was slightly limited secondary to pain. Neuro oriented x3, CN's II-XII intact bilaterally and no sensory deficits noted Sensorium / Orientation: alert Motor Exam: strength 5/5 throughout Psych mental status grossly normal MDM MDM MDM Narrative Medical decision making narrative: Given a dose of morphine here. CBC shows a slight leukocytosis of 11.9. Platelets were slightly low at 112. Comprehensive metabolic profile shows a BUN of 35 and creatinine of 1.59. Total bilirubin was slightly elevated at 1.3. Uric acid was elevated at 8.5. Sed rate was also slightly elevated at 31. CRP was elevated at 108. X-rays of the right elbow were obtained. There are 3 views. On my interpretation, there is no acute fracture or dislocation. There is some degenerative spurring along the posterior aspect of the olecranon. Radiologist also interpreted the x-rays and agrees. X-rays of the right ankle were obtained. There are 3 views. On my interpretation, there is an old avulsion off the medial malleolus. There is no acute fracture or dislocation. There are some vascular calcifications noted. There are some degenerative changes noted. Radiologist also interpreted the x-rays and agrees. Patient is feeling better on reevaluation. Patient was advised of his findings. Patient has a gout score of 8 which indicates that this is most likely gouty arthritis. Given his mild renal insufficiency and his age, I do not feel like he would benefit from nonsteroidal anti-inflammatory medications. Patient was given prescription for prednisone and allopurinol. Patient was instructed to follow- up with his primary care physician in 5 to 7 days. Patient understood and was agreeable with the plan. All questions were answered. Lab Data Attestation: I reviewed the patient's lab results. Labs: Laboratory Results - last 24 hr 12/08/21 12/08/21 09:55 09:55 WBC 11.9 H RBC 4.36 L Hgb 13.2 Hct 40.2 MCV 92.2 MCH 30.3 MCHC 32.8 RDW Std Deviation 43.1 RDW Coeff of John 12.7 Plt Count 112 L MPV 10.5 Immature Gran % (Auto) 0.600 Neut % (Auto) 84.4 H Lymph % (Auto) 7.3 L Lincoln % (Auto) 7.3 Eos % (Auto) 0.2 Baso % (Auto) 0.2 Absolute Neuts (auto) 10.0 H Absolute Lymphs (auto) 0.86 Nucleated RBC % 0 ESR 31 H Sodium 139 Potassium 4.3 Chloride 105 Carbon Dioxide 27.0 Anion Gap 7 BUN 35 H Creatinine 1.59 H Estim Creat Clear Calc 31.16 Est GFR (MDRD) Af Amer 54 L Est GFR (MDRD) Non-Af 45 L BUN/Creatinine Ratio 22.0 H Glucose 205 H Uric Acid 8.5 H Calcium 9.3 Total Bilirubin 1.30 H AST 14 L ALT 16 Alkaline Phosphatase 70 C-React Prot Ext Range 108.00 H Total Protein 7.1 Albumin 2.7 L Globulin 4.4 H Albumin/Globulin Ratio 0.6 L Radiography Diagnostic Testing: Clinical Impression(s) from Imaging Studies Ankle X-Ray 12/08/21 10:40 IMPRESSION: Old avulsion fracture of the medial malleolus. Calcaneal spurs. Electronically Signed: Ishaan La MD at 11:13 EDT , Elbow X-Ray 12/08/21 10:40 IMPRESSION: Diffuse soft tissue swelling. No fracture is seen. Degenerative spurring along the posterior aspect of the olecranon. Electronically Signed: Ishaan La MD at 11:12 EDT , Discharge Plan Triage Chief Complaint: Other, Pain/Inj ED Provider: Eyal Calderon Dx/Rx/DC Orders Clinical Impression: Gout, Thrombocytopenia, Obesity (BMI 30.0-34.9) Instructions: ED Gout, ED Gout Diet Prescriptions: New prednisone 20 mg tablet 60 mg PO DAILY Qty: 15 0RF allopurinol 100 mg tablet 100 mg PO DAILY Qty: 10 0RF No Action atorvastatin 80 mg tablet 80 mg PO DAILY Label Comments: TAKE 1 TABLET BY MOUTH ONCE DAILY ipratropium-albuterol 0.5 mg-3 mg(2.5 mg base)/3 mL solution for nebulization 3 ml inhalation 4X/DAY Label Comments: inhale contents of 1 vial ( 3 milliliters ) in nebulizer by mouth... (REFER TO PRESCRIPTION NOTES). liothyronine 25 mcg tablet 25 mcg PO DAILY Label Comments: TAKE 1 TABLET BY MOUTH ONCE DAILY FOR 90 DAYS metformin 1,000 mg tablet 500 mg PO BID glimepiride 4 mg tablet 4 mg PO DAILY Label Comments: TAKE 1 TABLET BY MOUTH ONCE DAILY Spiriva with HandiHaler 18 mcg capsule, w/inhalation device 18 mcg INHALATION DAILY Label Comments: INHALE THE CONTENTS OF 1 CAPSULE TWICE EACH TIME VIA HANDIHALER ONCE DAILY lisinopril-hydrochlorothiazide 20-12.5 mg tablet 1 tab PO DAILY Label Comments: TAKE 1 TABLET BY MOUTH ONCE DAILY aspirin [Elaina Low Dose Aspirin] 81 mg Tablet,Delayed Release (Dr/Ec) 81 mg PO DAILY cholecalciferol (vitamin D3) 25 mcg (1,000 unit) Capsule 25 mcg PO DAILY omega-3 fatty acids-vitamin E 1,000 mg Capsule 2 cap PO BID torsemide 10 mg tablet 5 mg PO DAILY Primary Care Provider: Adrianna Nichols Referrals: Adrianna Nichols DO [Primary Care Provider] - 5-7 Days Disposition Disposition: Home, Self Care
[2021-12-08 10:07] LABS: Erythrocyte Sedimentation Rate 31 mm/hr (0-20)
[2021-12-08 10:09] LABS: Absolute Lymphocyte Count 0.86 X10^3/uL (0.83-4.51); Basophil# 0.02 X10^3/uL; Basophil% 0.2 % (0-1); Eosinophil# 0.02 X10^3/uL; Eosinophils% 0.2 % (0-5); Hematocrit 40.2 % (40-54); Hemoglobin 13.2 g/dL (13.0-16.5); Lymphocyte # 0.86 X10^3/ul (0.83-4.51); Lymphocyte % 7.3 % (19-41); Mean Corp Hgb Conc 32.8 g/dL (32-36); Mean Corpuscular Hgb 30.3 pg (27.0-32.0); Mean Corpuscular Volume 92.2 fL (80-94); Mean Platelet Vol. 10.5 fl (6.2-12.0); Monocyte# 0.87 X10^3/uL; Monocyte% 7.3 % (0-10); NRBC Flagged by Analyzer 0 % (0-5); Neutrophil # 10.01 X10^3/uL (2.7-7.7); Neutrophil % 84.4 % (47-70); Platelet Count 112 K/mm3 (150-450); RBC Distribution Width CV 12.7 % (11.6-14.6); RBC Distribution Width SD 43.1 fl (35.1-43.9); Red Blood Count 4.36 M/mm3 (4.6-6.2); White Blood Count 11.9 K/mm3 (4.4-11.0)
[2021-12-08 10:32] LABS: ALB/GLOB Ratio 0.6 RATIO (0.9-2.4); AST(SGOT) 14 U/L (15-37); Alanine Aminotransfer ALT/SGPT 16 U/L (16-61); Albumin, Serum 2.7 g/dL (3.2-5.0); Alkaline Phosphatase 70 U/L (45-117); Anion Gap 7 (5-15); BUN 35 mg/dL (7-18); Calcium,Total 9.3 mg/dL (8.5-10.1); Chloride 105 mmol/L (98-107); Creatinine, Serum 1.59 mg/dL (0.70-1.30); EST Glomerular Filtration Rate 45 mL/min (>60); Est Glom Filt Rate - Afr Amer 54 mL/min (>60); Estimated Creatinine Clearance 31.16 ml/min; Globulin 4.4 g/dL (2.2-4.2); Glucose 205 mg/dL (74-106); Potassium 4.3 mmol/L (3.5-5.1); Protein, Total 7.1 g/dL (6.4-8.2); Sodium Level 139 mmol/L (136-145); Uric Acid 8.5 mg/dL (3.5-7.2)
[2021-12-08] MEDS: Morphine 4 MG/ML Syringe IV (10:40)
--- NOTE | 2021-12-08 10:40 | RAD_ITS ---
STUDY: X-RAY - RIGHT ANKLE REASON FOR EXAM: Male, 81 years old. Injury/Pain TECHNIQUE: 3 view(s) of the ankle. COMPARISON: None. FINDINGS: Normal visualized distal tibia and fibula. Old avulsion fracture of the medial malleolus. Normal tibiotalar articulation and ankle mortise. Calcaneal spurs. The visualized subtalar, talonavicular, calcaneocuboid and tarsal articulations are normal. The soft tissue structures are unremarkable. RAD/Ankle min 3 Views IMPRESSION: Old avulsion fracture of the medial malleolus. Calcaneal spurs. Electronically Signed: Ishaan La MD at 11:13 EDT ,
--- NOTE | 2021-12-08 10:40 | RAD_ITS ---
STUDY: X-RAY - RIGHT ELBOW REASON FOR EXAM: Male, 81 years old. Injury/Pain TECHNIQUE: 3 view(s) of the elbow. COMPARISON: None. FINDINGS: Normal visualized humerus, radius and ulna. There is degenerative arthrosis of the radiocapitellar and ulnotrochlear articulations. Diffuse soft tissue swelling. RAD/Elbow min 3 Views IMPRESSION: Diffuse soft tissue swelling. No fracture is seen. Degenerative spurring along the posterior aspect of the olecranon. Electronically Signed: Ishaan La MD at 11:12 EDT ,
[2021-12-08 13:05] VITALS: PULSE 118; RESP 24
[2021-12-08] MEDS: Ipratropium/Albuterol Sulfate 3 ML AMPUL.NEB INHALATION (13:05)
[2021-12-08 13:19] VITALS: PULSE 75; O2SAT 93
== END 2021-12-08 13:20 | disposition home or self-care (01) ==
PROVIDERS: Emergency Provider Emergency Medicine; PCP Family Medicine; Visit Provider Emergency Medicine
DX: M10.9 Gout, unspecified (principal); J44.9 Chronic obstructive pulmonary disease, unspecified; J96.11 Chronic respiratory failure with hypoxia; D69.6 Thrombocytopenia, unspecified; E11.9 Type 2 diabetes mellitus without complications; I10 Essential (primary) hypertension; E78.5 Hyperlipidemia, unspecified; E03.9 Hypothyroidism, unspecified; E66.9 Obesity, unspecified; Z79.82 Long term (current) use of aspirin; Z79.84 Long term (current) use of oral hypoglycemic drugs; Z79.899 Other long term (current) drug therapy; Z87.891 Personal history of nicotine dependence; N28.9 Disorder of kidney and ureter, unspecified; Z68.34 Body mass index [BMI] 34.0-34.9, adult
CPT/HCPCS: 73080; 73610; 80053; 84550; 85025; 85652; 86140; 94640; 96374; 99285; J7030; A4216

== ENCOUNTER 2021-12-13 09:26 | Observation (INO) | payer MEDICARE, SELFPAY ==
[2021-12-13] VITALS (8 sets, daily range): BP systolic 159–179; BP diastolic 61–103; PULSE 96–104; RESP 18–26; TEMP 36.4–36.6; O2SAT 92–100; BMI 34.2; BMI 33.0
--- NOTE | 2021-12-13 11:06 | EKG12_ITS ---
Test Reason : WEAKNESS Blood Pressure : / mmHG Vent. Rate : 096 BPM Atrial Rate : 096 BPM P-R Int : 202 ms QRS Dur : 096 ms QT Int : 344 ms P-R-T Axes : 049 -04 068 degrees QTc Int : 434 ms Normal sinus rhythm Nonspecific T wave abnormality Abnormal ECG Confirmed by JOSHUA CARRILLO, JACOB ([id number]), acquisitions editor ZACKARY MARTINEZ ([id number]) on 12/15/2021 7:59:44 AM Referred By: BRAD Confirmed By:JACOB LEWIS MD
--- NOTE | 2021-12-13 11:08 | EDS_ITS ---
HPI History of Present Illness Chief Complaint: Weakness Informant: patient and family Narrative Narrative: Patient returns to ED seen 6 days ago currently daughter and sister in law is present. Seen 6 days ago diagnosed with gouty arthritis. He states pain star brandon in his right lower extremity and foot region. No history of gout. Seen in the ED was placed on allopurinol and prednisone. Symptoms not improving. Has been in the chair for 5 days, daughter has bought a bedside commode for him. He typically does not ambulate with any assistance. Denies fevers. Pain progressing to his joints of the elbows. Denies any diagnosed immunological rheumatological issue. History of hypertension hyperlipidemia chronic 2 L oxygen with COPD history. Reported had mild hallucinations while on the medications. He is brought back reported weakness and unable to care for himself at home due to the pain. Prior similar symptoms: No PFSH PFSH Medical History Chronic respiratory failure with hypoxia COPD (chronic obstructive pulmonary disease) Diabetes mellitus, type 2 Former tobacco use HLD (hyperlipidemia) HTN (hypertension) Hypothyroidism Obesity Home Medications atorvastatin 80 mg tablet 80 mg PO DAILY CHOLESTEROL 05/02/21 [History Last Taken 12/13/21] cholecalciferol (vitamin D3) 25 mcg (1,000 unit) capsule 25 mcg PO DAILY vitamin 05/02/21 [History Last Taken 12/13/21] glimepiride 4 mg tablet 4 mg PO DAILY diabetes 05/02/21 [History Last Taken 05/31] ipratropium 0.5 mg-albuterol 3 mg (2.5 mg base)/3 mL nebulization soln 3 ml inhalation 4X/DAY PRN sob 05/02/21 [History Last Taken 3 Days Ago ~12/10/21] liothyronine 25 mcg tablet 25 mcg PO DAILY THYROID 05/02/21 [History Last Taken 12/13/21] lisinopril 20 mg-hydrochlorothiazide 12.5 mg tablet 1 tab PO DAILY BP 05/02/21 [History Last Taken 12/13/21] metformin 1,000 mg tablet 500 mg PO BID DM 05/02/21 [History Last Taken 12/13/21] omega-3 fatty acids-vitamin E 1,000 mg capsule 2 cap PO BID SUPPLEMENT 05/02/21 [History Last Taken 12/13/21] tiotropium bromide 18 mcg capsule with inhalation device (Spiriva with HandiHaler) 18 mcg inhalation DAILY SOB 05/02/21 [History Last Taken 12/13/21] torsemide 10 mg tablet 5 mg PO DAILY 12/08/21 [History Last Taken 12/12/21] aspirin 81 mg chewable tablet 81 mg PO DAILY 12/13/21 [History Last Taken 12/13/21] vitamins A,C,Y-ccvv-sibuwe 14,320 unit-226 mg-200 unit capsule (PreserVision AREDS) 1 cap PO BID 12/13/21 [History Last Taken 12/13/21] Allergy/AdvReac Type Severity Reaction Status Date / Time codeine AdvReac Upset Verified 12/08/21 08:38 Stomach Family History Mother CVA (cerebral vascular accident) Heart disease Myocardial infarction Hx of CABG Hypertension Father CVA (cerebral vascular accident) Heart disease Surgical History S/P cataract extraction Social History household members: none housing: house Smoking Status: Former smoker how long ago did patient quit smoking: Quit 2011, prior 1 ppd since teen. alcohol intake: former year quit: 2010 substance use type: does not use ROS ROS ED Constitutional Constitutional ED: Denies chills, fever(s) or sweats Eyes Eyes: Denies change in vision ENT ENT ED: Denies dysphagia or sore throat Cardiovascular Cardiovascular: Denies chest pain, leg edema, palpitations or racing heartbeat Respiratory/Chest Respiratory/Chest: Denies cough, dyspnea or dyspnea on exertion Gastrointestinal Gastrointestinal: Denies abdominal pain, diarrhea, nausea or vomiting Genitourinary Genitourinary ED: Denies dysuria, hematuria or urinary frequency Musculoskeletal Musculoskeletal: Reports arthralgias; Denies back pain, extremity pain or neck pain Integumentary Denies rash or wounds Neurologic Neurologic: Denies headache(s), paresthesias or weakness EXAM Physical Exam Const Vital Signs: 12/13/21 09:27 12/13/21 10:17 12/13/21 10:39 Temperature 97.6 F L 97.6 F L Temperature Source Temporal Temporal Pulse Rate 101 H 101 H Respiratory Rate 20 H 20 H Respiratory Effort Normal Non-Labored Blood Pressure 175/65 H 175/65 H Blood Pressure Mean 101 101 Pulse Ox 94 94 Oxygen Delivery Method Room Air Room Air Oxygen Flow Rate (L/min) 12/13/21 10:46 12/13/21 12:03 12/13/21 13:07 Temperature Temperature Source Pulse Rate 96 99 97 Respiratory Rate 20 H 24 H 18 Respiratory Effort Blood Pressure 179/61 H 164/70 H Blood Pressure Mean 100 101 Pulse Ox 98 92 96 Oxygen Delivery Method Nasal Cannula Nasal Cannula Nasal Cannula Oxygen Flow Rate (L/min) 2 2 2 Positive well nourished and well developed Constitutional Narrative: 2 L nasal cannula stable in no acute distress. General Appearance ED: well developed and NAD HEENT Reports dry mucous membranes normocephalic and atraumatic Mouth ED: Yes dry mucous membranes Mouth: dry mucous membranes Eyes PERRL, EOMs intact bilaterally and conjunctivae normal General Eye ED: Yes normal appearance of both eyes Neck no lymphadenopathy and supple General: Negative for tenderness Chest Wall Chest: Negative for tenderness Resp normal respiratory effort and normal air movement Effort and Inspection: symmetric chest movement; Negative for respiratory distress Cardio regular rate, regular rhythm and no murmurs Peripheral Pulses: pulses 2+ throughout GI normal to inspection, nondistended, normoactive bowel sounds and non-tender Palpation: Negative for guarding or rebound tenderness present Back/Spine no CVA tenderness and no thoracic nor lumbar tenderness Extremity Extremity Narrative: Full range of motion all extremities mild pain with movement of bilateral elbows there is no erythema or warmth no pain with short arc movements. Right lower extremity is swelling of the foot, there is no erythema or warmth. Skin intact. Neuro vas intact distally. General Extremety ED: Negative for edema or tenderness General Extremity: Negative for edema Neuro oriented x3 and no sensory deficits noted Sensorium / Orientation: awake and alert Skin no rashes or lesions noted and no wounds MDM MDM MDM Narrative Medical decision making narrative: Patient alert and orient x3 stable anoxia and appears limitations due to Polyarthralgia issues. Order for oxycodone I sent for labs for ESR CRP and uric acid. I discussed with case management who will evaluate discussed with patient family ED for likely rehab. At the discussion reviewing records noted he did have labs from his last visit elevated uric acid 8.5 ESR 31 CRP over 100. Creatinine was 1.59. He had image studies of his right ankle and his elbow which were noting mild arthritic changes. Labs rechecked, CRP decreased from previous of 87. ESR 101 today up from 31. Creatinine 1.7 slightly up from 1.9. He had dry mucosal membranes. Likely component of prerenal due to decreased p.o. intake. White count 11.1. I discussed with case management in the ED, he will require admission for placement. He is feeling better with oxycodone. I spoke with hospitalist Dr. Angel for admission to the medical floor. We will give 500 cc bolus with noted history of CHF with preserved ejection fraction with history of fluid overload in the past. Lab Data Attestation: I reviewed the patient's lab results. Labs: Laboratory Results - last 24 hr 12/13/21 12/13/21 12/13/21 09:05 09:05 10:22 WBC 11.1 H RBC 4.26 L Hgb 12.7 L Hct 39.8 L MCV 93.4 MCH 29.8 MCHC 31.9 L RDW Std Deviation 44.8 H RDW Coeff of John 13.1 Plt Count 205 MPV 10.8 Immature Gran % (Auto) 0.500 Neut % (Auto) 85.3 H Lymph % (Auto) 7.7 L Gilchrist % (Auto) 5.9 Eos % (Auto) 0.5 Baso % (Auto) 0.1 Absolute Neuts (auto) 9.5 H Absolute Lymphs (auto) 0.86 Nucleated RBC % 0 ESR 101 H Sodium 137 Potassium 3.8 Chloride 102 Carbon Dioxide 27.0 Anion Gap 8 BUN 79 H Creatinine 1.73 H Estim Creat Clear Calc 28.64 Est GFR (MDRD) Af Amer 49 L Est GFR (MDRD) Non-Af 40 L BUN/Creatinine Ratio 45.7 H Glucose 218 H Uric Acid 9.4 H Calcium 8.8 Total Bilirubin 0.50 AST 69 H ALT 65 H Alkaline Phosphatase 97 C-React Prot Ext Range 87.40 H Total Protein 7.6 Albumin 2.4 L Globulin 5.2 H Albumin/Globulin Ratio 0.5 L Urine Color Yellow Urine Clarity Clear Urine pH 6.0 Ur Specific Lyons 1.015 Urine Protein 100 H Urine Glucose (UA) Normal Urine Ketones Negative Urine Occult Blood 50 H Urine Nitrite Negative Urine Bilirubin Negative Urine Urobilinogen Normal Ur Leukocyte Esterase Negative Urine RBC 0-5 SEEN Urine WBC 0 SEEN Ur Squamous Epith Cells 0 SEEN Urine Bacteria 0 SEEN Urine Mucus 0 SEEN EKG Initial EKG: Attestation: I personally reviewed and interpreted this EKG as follows: Comments: Sinus rate of 96, no ST or T wave changes. Discharge Plan Dx/Rx/DC Orders Clinical Impression: Polyarthralgia, Debility, Acute on chronic renal insufficiency, Dehydration, COPD (chronic obstructive pulmonary disease) Disposition Disposition: Acute Care Hospital [facility] Discharge Date/Time: 12/13/21 14:04
[2021-12-13 11:12] LABS: Absolute Lymphocyte Count 0.86 X10^3/uL (0.83-4.51); Absolute Neutrophil Count 9.5 X10^3/uL (2.0-7.7); Basophil# 0.01 X10^3/uL; Basophil% 0.1 % (0-1); Eosinophil# 0.06 X10^3/uL; Eosinophils% 0.5 % (0-5); Hematocrit 39.8 % (40-54); Hemoglobin 12.7 g/dL (13.0-16.5); Lymphocyte # 0.86 X10^3/ul (0.83-4.51); Lymphocyte % 7.7 % (19-41); Mean Corp Hgb Conc 31.9 g/dL (32-36); Mean Corpuscular Hgb 29.8 pg (27.0-32.0); Mean Corpuscular Volume 93.4 fL (80-94); Mean Platelet Vol. 10.8 fl (6.2-12.0); Monocyte# 0.65 X10^3/uL; Monocyte% 5.9 % (0-10); NRBC Flagged by Analyzer 0 % (0-5); Neutrophil # 9.48 X10^3/uL (2.7-7.7); Neutrophil % 85.3 % (47-70); Platelet Count 205 K/mm3 (150-450); RBC Distribution Width CV 13.1 % (11.6-14.6); RBC Distribution Width SD 44.8 fl (35.1-43.9); Red Blood Count 4.26 M/mm3 (4.6-6.2); White Blood Count 11.1 K/mm3 (4.4-11.0)
[2021-12-13] MEDS: oxyCODONE 5 MG Tablet PO ×2 (11:12→17:38)
[2021-12-13 11:19] LABS: Bacteria 0 SEEN /hpf (None Seen); Mucous, Urine 0 SEEN /hpf (<or=2+); Squamous Epithelial Cells - UA 0 SEEN /hpf (0-5); White Blood Cells 0 SEEN /hpf (0-5)
[2021-12-13 11:22] LABS: Color, Urine Yellow (Yellow); Glucose, Dipstick Normal (Normal); Ketone-Dipstick Negative (Negative); Leukocyte Esterase-Dipstick Negative /ul (Negative); Nitrite-Dipstick Negative (Negative); Occult Blood-Urine 50 /ul (Negative); Protein-Dipstick 100 mg/dl (Negative); Specific Gravity, Urine 1.015 (1.002-1.030); Urine Bilirubin Dipstick Negative (Negative); Urine Clarity Clear (Clear); Urine Urobilinogen Normal (Normal)
[2021-12-13 11:31] LABS: Red Blood Cells-Urine 0-5 SEEN /hpf (0-5)
[2021-12-13 11:32] LABS: ALB/GLOB Ratio 0.5 RATIO (0.9-2.4); AST(SGOT) 69 U/L (15-37); Alanine Aminotransfer ALT/SGPT 65 U/L (16-61); Albumin, Serum 2.4 g/dL (3.2-5.0); Alkaline Phosphatase 97 U/L (45-117); Anion Gap 8 (5-15); BUN 79 mg/dL (7-18); BUN/Creat Ratio 45.7 RATIO (10-20); Calcium,Total 8.8 mg/dL (8.5-10.1); Chloride 102 mmol/L (98-107); Creatinine, Serum 1.73 mg/dL (0.70-1.30); EST Glomerular Filtration Rate 40 mL/min (>60); Est Glom Filt Rate - Afr Amer 49 mL/min (>60); Estimated Creatinine Clearance 28.64 ml/min; Globulin 5.2 g/dL (2.2-4.2); Glucose 218 mg/dL (74-106); Potassium 3.8 mmol/L (3.5-5.1); Protein, Total 7.6 g/dL (6.4-8.2); Sodium Level 137 mmol/L (136-145); Uric Acid 9.4 mg/dL (3.5-7.2)
[2021-12-13 11:42] LABS: Erythrocyte Sedimentation Rate 101 mm/hr (0-20)
--- NOTE | 2021-12-13 11:48 | CM.ED ---
THANIA spoke to MD. Patient will need rehab at SNF. Family is interested in TCU. SW called [facility] in TCU rehab. They have beds but no beds for [employer] as the current [employer] beds are full. THANIA spoke to patient and his family in the room. Patient voiced his interest in SNF. Family is not present during the day.
--- NOTE | 2021-12-13 13:09 | PCM.HP.STD ---
HPI - General General Date of Admission: 12/13/21 Date of Service: 12/13/21 Chief Complaint: Debility, FTT at home HPI Narrative The patient is an 81 y/o M w/ PMHx: Chronic Diastolic CHF, CKD stage III unclear subtype, Chronic anemia, COPD with Chronic Hypoxic Respiratory Failure, HTN, HLD, Diabetes mellitus type II, Gout, Hypothyroidism, Former tobacco use who presents to the [facility] ED on 12/13/21 who presents with history of recent ED evaluation 6 days prior with diagnosis of gouty arthritis flare in the R foot and ankle, R elbow and L knee at that time with initiation of allopurinol and prednisone at that time with ongoing symptoms; however, now he notes his discomfort has progressed into both elbows now and ongoing in his other prior regions of complaint with no diagnosis of prior rheumatological disease. Family does report hallucinations while on steroids but he was noted to be appropriate and improved upon ED evaluation. Family brings him back now as he is unable to take care of himself with difficulty ambulating with family request for consideration SNF placement. Patient again confirms pain worse with activity/weight bearing as well as palpation, described as constant aching pain. He denies any onset fevers or chills. He has had poor intake. He reports notable improvement following ED administered oxycodone x 1. He is now able to move his elbows, knee and ankle with no marked pain with palpation. Still has mild BL elbow warm with palpation and mild redness. Pain prior to pain meds reported 5-6/10 and with palpation up to 8-9/10, currently down to 1-3 range. Work-up in the ED T 97.6, heart rate initially 101 with most recent repeat 97, BP 175/65 with most recent repeat 164/70, respiratory rate 20, 94% on room air -->92 to 98% on 2 L nasal cannula, CBC with WC 11.1, hemoglobin 12.7, MCV 93.4, platelets 205 with left shift, ESR 101, CMP with BUN/creat 79/1.73, glucose 218, uric acid 9.4, AST/LT 69/65, total bili 0.50, alk phos 97, CRP 87.40 otherwise hepatic profile not remarkable, urinalysis unremarkable with no obvious evidence of UTI. In the ED patient administered oxycodone 5 mg p.o. x1. [facility] Medical History Chronic respiratory failure with hypoxia COPD (chronic obstructive pulmonary disease) Diabetes mellitus, type 2 Former tobacco use HLD (hyperlipidemia) HTN (hypertension) Hypothyroidism Obesity Home Medications atorvastatin 80 mg tablet 80 mg PO DAILY CHOLESTEROL 05/02/21 [History Last Taken 05/01/21] cholecalciferol (vitamin D3) 25 mcg (1,000 unit) capsule 25 mcg PO DAILY vitamin 05/02/21 [History Last Taken 05/02/21] glimepiride 4 mg tablet 4 mg PO DAILY diabetes 05/02/21 [History Last Taken 05/01/21] ipratropium 0.5 mg-albuterol 3 mg (2.5 mg base)/3 mL nebulization soln 3 ml inhalation 4X/DAY SOB 05/02/21 [History Last Taken 05/02/21] liothyronine 25 mcg tablet 25 mcg PO DAILY THYROID 05/02/21 [History Last Taken 05/02/21] lisinopril 20 mg-hydrochlorothiazide 12.5 mg tablet 1 tab PO DAILY BP 05/02/21 [History Last Taken 05/02/21] metformin 1,000 mg tablet 500 mg PO BID DM 05/02/21 [History Last Taken 05/02/21] omega-3 fatty acids-vitamin E 1,000 mg capsule 2 cap PO BID SUPPLEMENT 05/02/21 [History Last Taken 05/01/21] tiotropium bromide 18 mcg capsule with inhalation device (Spiriva with HandiHaler) 18 mcg inhalation DAILY SOB 05/02/21 [History Last Taken 05/02/21] torsemide 10 mg tablet 5 mg PO DAILY 12/08/21 [History Last Taken Unknown] aspirin 81 mg chewable tablet 81 mg PO DAILY 12/13/21 [History Last Taken 12/13/21] vitamins A,C,W-opbf-iyyjal 14,320 unit-226 mg-200 unit capsule (PreserVision AREDS) 1 cap PO BID 12/13/21 [History Last Taken Unknown] Allergy/AdvReac Type Severity Reaction Status Date / Time codeine AdvReac Upset Verified 12/08/21 08:38 Stomach Family History Mother CVA (cerebral vascular accident) Heart disease Myocardial infarction Hx of CABG Hypertension Father CVA (cerebral vascular accident) Heart disease Surgical History S/P cataract extraction Social History household members: none housing: house Smoking Status: Former smoker how long ago did patient quit smoking: Quit 2010, prior 1 ppd since teen. alcohol intake: former year quit: 2010 substance use type: does not use ROS ROS Narrative Admission Review of Systems: CONSTITUTIONAL: No weight loss, fever, chills, weight gain, + weakness or fatigue. HEENT: Eyes: No visual loss, blurred vision, double vision or yellow sclerae. Ears, Nose, Throat: No hearing loss, sneezing, congestion, runny nose or sore throat. SKIN: + BL elbow mild redness, prior R ankle/great toe mild redness/edema. CARDIOVASCULAR: + Chronic unchanged non-pitting BL LE edema. No chest pain/pressure/tightness, orthopnea, weight gain, palpitations, syncopal events. RESPIRATORY: + Chronic shortness of breath, occasional unchanged cough, no marked sputum, wheezing or hemoptysis. GASTROINTESTINAL: + Anorexia, No nausea, vomiting or diarrhea, abdominal pain, melena, BRBPR. GENITOURINARY: No dysuria, frequency, urgency or retention. NEUROLOGICAL: + Prior family reported hallucinations, appears baseline currently. No headache, dizziness, syncope, paralysis, ataxia, numbness or tingling in the extremities, focal weakness, change in bowel or bladder control, seizure. MUSCULOSKELETAL: + muscle, back pain, joint pain or stiffness. HEMATOLOGIC: + anemia, bleeding or bruising. LYMPHATICS: No enlarged nodes. No history of splenectomy. PSYCHIATRIC: No history of depression or anxiety. ENDOCRINOLOGIC: No reports of sweating, cold or heat intolerance. No polyuria or polydipsia. ALLERGIES: No history of asthma, hives, eczema or rhinitis. Vital Signs Vital Signs Vital Signs: 12/13/21 09:27 12/13/21 10:17 12/13/21 10:39 Temperature 97.6 F L 97.6 F L Temperature Source Temporal Temporal Pulse Rate 101 H 101 H Respiratory Rate 20 H 20 H Respiratory Effort Normal Non-Labored Blood Pressure 175/65 H 175/65 H Blood Pressure Mean 101 101 Pulse Ox 94 94 Oxygen Delivery Method Room Air Room Air Oxygen Flow Rate (L/min) 12/13/21 10:46 12/13/21 12:03 12/13/21 13:07 Temperature Temperature Source Pulse Rate 96 99 97 Respiratory Rate 20 H 24 H 18 Respiratory Effort Blood Pressure 179/61 H 164/70 H Blood Pressure Mean 100 101 Pulse Ox 98 92 96 Oxygen Delivery Method Nasal Cannula Nasal Cannula Nasal Cannula Oxygen Flow Rate (L/min) 2 2 2 Weight Weight: 205 lb 14.588 oz Body Mass Index (BMI) 34.2 Physical Exam Narrative Physical Examination: General: Awake, alert, oriented x 3 and cooperative, seated upright in the ED bed, fatigued, NAD, notes pain significantly improved 1-2/ primarily elbows. Skin: Normal color, normal turgor, no icterus, no cyanosis, BL elbow with mild redness, mild increased warmth, no marked redness to BL knee or R foot/ankle currently. HEENT: AT/NC, EOMI, PERRLA, MMM, no carotid bruits or marked JVD noted, although difficult exam given thickened neck. Lungs: Diffusely, > bases, moderate effort, no evidence of distress, on chronic 2L NC, no rales, wheezing or rhonchi. Heart: Currently regular rate with regular rhythm; no gallop, rub audible. Abdomen: Soft, obese, NTTP, ND but difficult given habitus, mildly hyperactive BS, no obvious evidence of HSM. Extremities: No cyanosis, no clubbing, bilateral ankle to distal sherwood not markedly pitting edema. BL elbow TTP, L > R, mild redness, mild increased warmth, BL knee without marked pain to palpation, able to move better following pain regimen, R ankle and great toe less TTP, no redness or edema noted. Neurological: Patient awake, alert, oriented as noted, cognitive function intact; pupils equally reactive to light and accommodation, cranial nerves II-XII grossly normal, moving all 4 extremities, no focal deficits, strength moderately to severely decreased secondary to acute presentation. Psychiatric: Affect appears fatigued, notes pain markedly improved, no acute evidence of depressive or anxiety feelings. Results Lab / Micro Data Result Diagrams: 12/13/21 09:05 12/13/21 09:05 Labs: Laboratory Results - last 24 hr 12/13/21 09:05: WBC 11.1 H, RBC 4.26 L, Hgb 12.7 L, Hct 39.8 L, MCV 93.4, MCH 29.8, MCHC 31.9 L, RDW Std Deviation 44.8 H, RDW Coeff of John 13.1, Plt Count 205, MPV 10.8, Immature Gran % (Auto) 0.500, Neut % (Auto) 85.3 H, Lymph % (Auto) 7.7 L, [place] % (Auto) 5.9, Eos % (Auto) 0.5, Baso % (Auto) 0.1, Absolute Neuts (auto) 9.5 H, Absolute Lymphs (auto) 0.86, Nucleated RBC % 0, ESR 101 H 12/13/21 09:05: Sodium 137, Potassium 3.8, Chloride 102, Carbon Dioxide 27.0, Anion Gap 8, BUN 79 H, Creatinine 1.73 H, Estim Creat Clear Calc 28.64, Est GFR (MDRD) Af Amer 49 L, Est GFR (MDRD) Non-Af 40 L, BUN/Creatinine Ratio 45.7 H, Glucose 218 H, Uric Acid 9.4 H, Calcium 8.8, Total Bilirubin 0.50, AST 69 H, ALT 65 H, Alkaline Phosphatase 97, C-React Prot Ext Range 87.40 H, Total Protein 7.6, Albumin 2.4 L, Globulin 5.2 H, Albumin/Globulin Ratio 0.5 L 12/13/21 10:22: Urine Color Yellow, Urine Clarity Clear, Urine pH 6.0, Ur Specific [place] 1.015, Urine Protein 100 H, Urine Glucose (UA) Normal, Urine Ketones Negative, Urine Occult Blood 50 H, Urine Nitrite Negative, Urine Bilirubin Negative, Urine Urobilinogen Normal, Ur Leukocyte Esterase Negative, Urine RBC 0-5 SEEN, Urine WBC 0 SEEN, Ur Squamous Epith Cells 0 SEEN, Urine Bacteria 0 SEEN, Urine Mucus 0 SEEN Assessment & Plan Assessment/Plan (1) Gout: PLAN: Plan The patient is an 81 y/o M w/ PMHx: Chronic Diastolic CHF, CKD stage III unclear subtype, Chronic anemia, COPD with Chronic Hypoxic Respiratory Failure, HTN, HLD, Diabetes mellitus type II, Gout, Hypothyroidism, Former tobacco use who presents to the [facility] ED on 12/13/21 who presents with history of recent ED evaluation 6 days prior with diagnosis of gouty arthritis flare in the R foot and ankle, R elbow and L knee at that time with initiation of allopurinol and prednisone at that time with ongoing symptoms; however, now he notes his discomfort has progressed into both elbows now and ongoing in his other prior regions of complaint with no diagnosis of prior rheumatological disease. #1. Recent Acute Gouty Arthritis Flare with worsening Debility, FTT Adult: Recent 12/08/21 ED evaluation for gout postulated pain, started on steroids as well as allopurinol secondary to elevated gout score 8 with elevated CRP and ESR at that time with normal WBC, given worsening status, will admit to [facility], maintain on fall precautions, continue this recent regimen, judiciously hydrate given mild renal insufficiency, holding diuretics with resumption likely 12/14/32 if function improves, procalcitonin requested, if any concerns arise for infectious or alternate etiology may need to consider arthrocentesis to be certain, continue as needed oral oxycodone regimen given significant improvement with this medication however will be cautious given potential hallucinations reported suspected secondary steroid usage. PT/OT/CM consultations for SNF discharge planning. #2. Chronic Diastolic CHF: 05/03/21 ECHO w/ grossly normal LV size, wall motion and systolic function, EF 65%, trivial MVI, mild to moderate , diastolic function indeterminate, will continue aspirin, statin, holding diuretics not on blood greta therapy of note, add back diuretics once renal function improved, judiciously hydrating given history. #3. Elevated LFTs/transaminitis, Unclear etiology: Admission T bili 0.50, AST/ALT 69/65, alk phos 97, unclear specific etiology, previously normal range, liver US pending, plan repeat CMP in AM, may consider hepatitis panel if ongoing to be cautious. Coags of note also requested. #4. Mild Acute Renal Insufficiency on Chronic Kidney Disease Stage III, unclear subtype: Admission BUN/Cr 79/1.73, baseline renal function primarily 1.3-1.5, repeat BMP in AM. #5. Hypertension: Patient with mild acute renal insufficiency, temporarily hold commendation lisinopril-hydrochlorothiazide as well as torsemide regimen, add back in a.m. if improved renal function as needed IV hydralazine in interim. #6. Hyperlipidemia: Continue patient home statin therapy. #7. Hypothyroidism: We will continue patient home liothyronine regimen. #8. Chronic COPD with chronic hypoxic respiratory failure: We will continue patient home chronic supplementation nasal cannula, temporarily hold patient home inhaler and transition in the interim to ATC duonebs, PRN albuterol, HOB, IS parameters. #9. Diabetes mellitus type II: Hold oral home regimen, ADA diet, accu checks w/ ISS. #10. Chronic anemia, normocytic: Admission hemoglobin 12.7, baseline appears 10-12, stable, trend. #11. Obesity: Weight loss and lifestyle changes encouraged. #12. Former tobacco use: Encourage continued tobacco cessation. #13. DVT prophylaxis: SCDs, heparin. #14. CODE status: Patient RUSTY is his daughter and living will is currently in place. Discussed CODE status at length including difference between FULL code, DNR-CCA and DNR-CC status. Following discussions about the differences in these status, requested continuation of DNR-CCA, no intubation status. Advanced Care Planning Face to Face Time: 16 minutes. Charges/Coding Visit Charges OBSV E&M: 91016 Initial observation care L3 Procedures Hospitalists Procedures: 33760 Advncd Care Plan 30 Min
[2021-12-13 14:03] LABS: International Normalized Ratio 1.2; Prothrombin Time (Protime)PT. 14.7 SECONDS (11.7-14.9)
[2021-12-13 14:04] LABS: Partial Thromboplast Time 26.2 Seconds (24.1-36.2)
[2021-12-13 14:46] LABS: Procalcitonin 0.37 ng/mL (0.00-0.09)
[2021-12-13] MEDS: 0.9% Normal Saline 1,000 ML 100 ML IV (15:00)
[2021-12-13] MEDS: Insulin Lispro 100 UNIT/ML INSULN.PEN SC ×2 (16:10→22:17)
[2021-12-13 16:41] LABS: Bedside Glucose 305 mg/dL (74-106)
[2021-12-13] MEDS: Heparin Injection (Vial) 5,000 UNIT/ML VIAL 5000 UNIT SC (22:17)
[2021-12-13 22:46] LABS: Bedside Glucose 369 mg/dL (74-106)
[2021-12-13] MEDS: Menthol/Lanolin/Calamine/Znox 113 GM Tube 1 APPLIC TOPICAL (23:07)
[2021-12-14] VITALS (11 sets, daily range): BP systolic 155–178; BP diastolic 58–87; PULSE 80–99; RESP 18–20; TEMP 36.4–36.9; O2SAT 95–98
[2021-12-14] MEDS: 0.9% Normal Saline 1,000 ML 100 ML IV (01:20)
[2021-12-14] MEDS: hydrALAZINE 20 MG/ML Vial 10 MG IV (02:47)
[2021-12-14] MEDS: 0.9% Saline Lock 10 ML Syringe IV (02:49)
--- NOTE | 2021-12-14 04:14 | PCM.PN.BLA ---
Progress Note Patient blood pressure remains elevated despite 10 mg of IV as needed hydralazine. Of notes and patient p.o. medication has been held secondary to GUZMAN. We will hydralazine p.o. to regimen.
[2021-12-14] MEDS: hydrALAZINE 10 MG Tablet PO ×3 (04:33→21:18)
[2021-12-14] MEDS: Insulin Lispro 100 UNIT/ML INSULN.PEN SC ×4 (06:49→21:19)
[2021-12-14] MEDS: Menthol/Lanolin/Calamine/Znox 113 GM Tube 1 APPLIC TOPICAL ×3 (06:51→21:18)
[2021-12-14 07:29] LABS: Absolute Lymphocyte Count 1.32 X10^3/uL (0.83-4.51); Absolute Neutrophil Count 5.6 X10^3/uL (2.0-7.7); Basophil# 0.01 X10^3/uL; Basophil% 0.1 % (0-1); Eosinophil# 0.11 X10^3/uL; Eosinophils% 1.4 % (0-5); Hematocrit 33.9 % (40-54); Hemoglobin 11.1 g/dL (13.0-16.5); Lymphocyte # 1.32 X10^3/ul (0.83-4.51); Mean Corp Hgb Conc 32.7 g/dL (32-36); Mean Corpuscular Hgb 30.6 pg (27.0-32.0); Mean Corpuscular Volume 93.4 fL (80-94); Mean Platelet Vol. 10.8 fl (6.2-12.0); Monocyte# 0.68 X10^3/uL; Monocyte% 8.8 % (0-10); NRBC Flagged by Analyzer 0 % (0-5); Neutrophil # 5.61 X10^3/uL (2.7-7.7); Neutrophil % 72.2 % (47-70); Platelet Count 149 K/mm3 (150-450); RBC Distribution Width CV 12.9 % (11.6-14.6); RBC Distribution Width SD 44.3 fl (35.1-43.9); Red Blood Count 3.63 M/mm3 (4.6-6.2); White Blood Count 7.8 K/mm3 (4.4-11.0)
[2021-12-14 07:30] LABS: Bedside Glucose 155 mg/dL (74-106)
--- NOTE | 2021-12-14 08:00 | US_ITS ---
STUDY: ABDOMINAL ULTRASOUND - RIGHT UPPER QUADRANT REASON FOR VISIT: Male, 81 years old Albnormal LFTs, liver US. TECHNIQUE: Ultrasound evaluation of the right upper quadrant was performed with real-time and static gonzalez-scale imaging. TECHNICAL QUALITY: Adequate. COMPARISON: None. FINDINGS: Liver: The liver is enlarged and measures 22 cm. There is increased echogenicity consistent with fatty infiltration. The bile ducts are within normal limits. There is hepatic color flow. The direction of portal flow is hepatopetal. There is no demonstrated mass lesion. Gallbladder: Normal distended gallbladder. The gallbladder wall measures 2 mm. There is a negative sonographic Lan''s sign. There is no pericholecystic fluid. There are multiple echogenic structures within the gallbladder, consistent with multiple tiny gallstones. Sludge is also seen in the gallbladder lumen. Common Bile Duct (C.B.D.): The common bile duct measures 5.3 mm. Pancreas: Normal size of the head, body and tail of the pancreas. There is normal echogenicity of the pancreas. There is no demonstrated pancreatic mass or cyst. Right Kidney: Normal size of the right kidney. The right kidney measures 10.3 cm x 5 cm x 5.5 cm. Normal renal cortex. The right cortex measures 1.6 cm. There is no demonstrated renal mass or cyst. There is no right hydronephrosis. US/Abdomen Limited IMPRESSION: Hepatomegaly and fatty infiltration of the liver. Sludge and small gallstones seen within the gallbladder lumen. Electronically Signed: Ishaan La MD at 10:23 EDT ,
[2021-12-14 08:01] LABS: ALB/GLOB Ratio 0.4 RATIO (0.9-2.4); AST(SGOT) 34 U/L (15-37); Alanine Aminotransfer ALT/SGPT 43 U/L (16-61); Albumin, Serum 1.9 g/dL (3.2-5.0); Alkaline Phosphatase 76 U/L (45-117); Anion Gap 5 (5-15); BUN 71 mg/dL (7-18); BUN/Creat Ratio 48.3 RATIO (10-20); Calcium,Total 8.8 mg/dL (8.5-10.1); Chloride 109 mmol/L (98-107); Creatinine, Serum 1.47 mg/dL (0.70-1.30); EST Glomerular Filtration Rate 49 mL/min (>60); Est Glom Filt Rate - Afr Amer 59 mL/min (>60); Globulin 4.3 g/dL (2.2-4.2); Glucose 178 mg/dL (74-106); Potassium 4.2 mmol/L (3.5-5.1); Protein, Total 6.2 g/dL (6.4-8.2); Sodium Level 141 mmol/L (136-145)
--- NOTE | 2021-12-14 08:13 | NURSING ---
off unit for US
--- NOTE | 2021-12-14 08:42 | WOUNDNOTE ---
wound photo: bilateral buttocks
[2021-12-14] MEDS: Heparin Injection (Vial) 5,000 UNIT/ML VIAL 5000 UNIT SC ×2 (09:32→21:17)
[2021-12-14] MEDS: Aspirin 81 MG TAB.CHEW PO (09:32)
[2021-12-14] MEDS: oxyCODONE 5 MG Tablet PO ×2 (09:35→15:13)
[2021-12-14] MEDS: Acetaminophen 325 MG Tablet 650 MG PO ×2 (09:36→15:14)
--- NOTE | 2021-12-14 09:49 | CASEMGMT ---
Social Work Sw in to meet with pt. Pt sitting in bedside chair. Sw introduced self and role at the hospital. Pt agreeable to discussing discharge plan. ?A printed list of SNF providers including quality and resources use date that is consistent with patient's preferred geographical region, medical needs, and insurances network were provided via the [employer] Guide Link. Pt stated his daughter had wrote down the top two choices and pulled out a list to share with SW. SW reviewed and noted [facility] as first choice and [facility] as second choice. SW explained the process to pt and pt voiced understanding that pt would wait for acceptance to [facility]. SW shared pt choice with Amber Hernandez, discharge resident programs assistant. Referral to be sent to [facility] [place]. PLAN: [facility] [place], pending acceptance and precert
--- NOTE | 2021-12-14 09:58 | CASEMGMT ---
Discharge Fleet Coordinator Amber morton/sunday veterinary technician assistant sent over a referral to [facility]ay[facility] at [facility] via [facility]. Will follow up. Plan: [facility] Waiting Acceptance Amber Hernandez Discharge Fleet Coordinator
--- NOTE | 2021-12-14 11:50 | CASEMGMT ---
Discharge Director Part Chayo has reached out from [facility]. Patient has been accepted. Amber told Chayo to hold off on start pre-cert as to SW Aditi has not gotten a clear answer from the on when patient will be ready. Plan: [facility], Pre-cert has not been started yet. Amber Hernandez Discharge Director Part
[2021-12-14 12:10] LABS: Bedside Glucose 319 mg/dL (74-106)
--- NOTE | 2021-12-14 13:20 | CASEMGMT ---
Discharge Office Rep Amber rinaldi development assistant was notified by THANIA Pennington to have [facility] go ahead and start pre-cert. Plan: [facility] Waiting Pre-cert Amber Hernandez Discharge Office Rep
--- NOTE | 2021-12-14 13:55 | CASEMGMT ---
ALMA RINALDI in to discuss ROGERS form with patient. RN NIMCO explained ROGERS form, patient voiced understanding. Pt signed form and filed in chart. Pt provided with a copy of signed ROGERS form. Pt updated that he has been accepted to [facility] and we are awaiting precert from his insurance. Pt verbalized understanding. Patient had no further questions or concerns at this time.
--- NOTE | 2021-12-14 14:18 | PN.HOSP_ITS ---
Subjective Subjective Patient seen and examined. Still complaining of pain in his elbows and in his ankles due to his gout. He had no other complaint on review of systems otherwise negative. He has remained hemodynamically stable. Objective Data Objective Data Vital Signs: Vital Signs Temp Pulse Resp BP Pulse Ox O2 Del Method O2 Flow Rate 98.0 F 86 18 155/87 H 95 Room Air 2.5 12/14/21 13:52 12/14/21 13:52 12/14/21 13:52 12/14/21 13:52 12/14/21 13:52 12/14/21 13:52 12/14/21 09:06 Oxygen Flow Rate (L/min) 2.5 Oxygen Delivery Method Room Air Weight: 204 lb 2.369 oz Body Mass Index (BMI) 33.0 Intake & Output: Intake and Output for Last 24 Hours 12/12/21 12/13/21 12/14/21 23:59 23:59 23:59 Intake Total 500 / 500 3150 / 3150 Output Total 300 / 1075 1350 / 1350 Balance 200 / -575 1800 / 1800 Lab / Micro Data Result Diagrams: 12/14/21 06:05 12/14/21 06:05 Labs: Laboratory Results - last 24 hr 12/13/21 13:40: Procalcitonin 0.37 H 12/13/21 16:05: POC Glucose 305 H 12/13/21 22:11: POC Glucose 369 H 12/14/21 06:05: WBC 7.8, RBC 3.63 L, Hgb 11.1 L, Hct 33.9 L, MCV 93.4, MCH 30.6, MCHC 32.7, RDW Std Deviation 44.3 H, RDW Coeff of John 12.9, Plt Count 149 L, MPV 10.8, Immature Gran % (Auto) 0.500, Neut % (Auto) 72.2 H, Lymph % (Auto) 17.0 L, [place] % (Auto) 8.8, Eos % (Auto) 1.4, Baso % (Auto) 0.1, Absolute Neuts (auto) 5.6, Absolute Lymphs (auto) 1.32, Nucleated RBC % 0 12/14/21 06:05: Sodium 141, Potassium 4.2, Chloride 109 H, Carbon Dioxide 27.0, Anion Gap 5, BUN 71 H, Creatinine 1.47 H, Estim Creat Clear Calc 33.70, Est GFR (MDRD) Af Amer 59 L, Est GFR (MDRD) Non-Af 49 L, BUN/Creatinine Ratio 48.3 H, Glucose 178 H, Calcium 8.8, Total Bilirubin 0.40, AST 34, ALT 43, Alkaline Phosphatase 76, Total Protein 6.2 L, Albumin 1.9 L, Globulin 4.3 H, Albumin/Globulin Ratio 0.4 L 12/14/21 06:48: POC Glucose 155 H 12/14/21 11:48: POC Glucose 319 H Radiography Diagnostic Testing: Radiology Impression Abdomen Ultrasound 12/14/21 08:00 IMPRESSION: Hepatomegaly and fatty infiltration of the liver. Sludge and small gallstones seen within the gallbladder lumen. Electronically Signed: Ishaan La MD at 10:23 EDT , Physical Exam Const alert, oriented x3 and no apparent distress HEENT head/scalp atraumatic, moist oral mucous membranes and oropharynx normal Head and Scalp: normocephalic Mouth: oral and palatal mucosa normal Eyes PERRL, EOMs intact bilaterally and conjunctivae normal Neck no lymphadenopathy, supple and no JVD Resp normal respiratory effort and no retractions Cardio regular rate, regular rhythm, S1 normal heart sound, S2 normal heart sound and no murmurs GI normal to inspection, nondistended, normoactive bowel sounds, soft to palpation, non-tender and non-distended Extremity Extremity Narrative: mild swelling and tenderness of both elbows and ankles due to acute gouty arthritis. Neuro oriented x3, CN's II-XII intact bilaterally and moves all extremities Sensorium / Orientation: awake and alert Motor Exam: strength 5/5 throughout Psych affect normal Assessment & Plan Assessment/Plan (1) Debility: (2) Gout: PLAN: Plan #Acute gout flare up with debility * complains of pain in both ankles and both elbows due to gout * on steroids and allopurinol * continue hydration with IVF * oral oxycodone prn * PT/OT On board * #Heart failure preserved ejection fraction: * Has known EF of 65%. Not in exacerbation. Diuretics on hold on account of impaired kidney function. * On room air. Stable. * #CKD stage III B: Cr is 1.47, with baseline of ~ 1.5. Will monitor #Hypertension: * Lisinopril and hydrochlorothiazide as well as torsemide on hold o/a of impaired kidney function. * Will resume BP meds as blood pressure is down to baseline. * #Type 2 diabetes mellitus; on ISS> Accuchecks ACHS. #Hyperlipidemia: on statin #COPD: not in exacerbation. On breathing trreatment with bronchodilators. #DVT prophylaxis: heparin Charges/Coding Visit Charges OBSV E&M: 55807 Subsequent observation care L2
[2021-12-14 17:30] LABS: Bedside Glucose 219 mg/dL (74-106)
[2021-12-14] MEDS: Atorvastatin Calcium 80 MG Tablet PO (21:18)
[2021-12-14 23:16] LABS: Bedside Glucose 240 mg/dL (74-106)
[2021-12-15] VITALS (19 sets, daily range): BP systolic 138–188; BP diastolic 44–98; PULSE 101–120; RESP 18–24; TEMP 36.4–37.2; O2SAT 92–99
[2021-12-15] MEDS: hydrALAZINE 20 MG/ML Vial 10 MG IV ×2 (03:54→18:10)
[2021-12-15] MEDS: 0.9% Saline Lock 10 ML Syringe IV ×3 (03:55→18:10)
[2021-12-15] MEDS: hydrALAZINE 10 MG Tablet PO ×3 (05:30→21:40)
[2021-12-15] MEDS: Menthol/Lanolin/Calamine/Znox 113 GM Tube 1 APPLIC TOPICAL ×3 (05:30→21:41)
[2021-12-15] MEDS: Insulin Lispro 100 UNIT/ML INSULN.PEN SC ×4 (06:29→21:50)
[2021-12-15 06:50] LABS: Bedside Glucose 169 mg/dL (74-106)
--- NOTE | 2021-12-15 08:04 | CASEMGMT ---
Discharge Home Health Clinical Liaison [facility]ay[facility] from [facility] reached out. Pre-cert has been obtained. THANIA Hernandez notified. Plan: [facility] When medically ready Amebr Hernandez Discharge Home Health Clinical Liaison
[2021-12-15 08:19] LABS: Absolute Neutrophil Count 6.5 X10^3/uL (2.0-7.7); Basophil# 0.01 X10^3/uL; Basophil% 0.1 % (0-1); Eosinophil# 0.26 X10^3/uL; Eosinophils% 2.9 % (0-5); Hematocrit 33.4 % (40-54); Hemoglobin 11.3 g/dL (13.0-16.5); Lymphocyte % 16.7 % (19-41); Mean Corp Hgb Conc 33.8 g/dL (32-36); Mean Corpuscular Hgb 31.3 pg (27.0-32.0); Mean Corpuscular Volume 92.5 fL (80-94); Mean Platelet Vol. 10.3 fl (6.2-12.0); Monocyte% 6.7 % (0-10); NRBC Flagged by Analyzer 0 % (0-5); Neutrophil # 6.48 X10^3/uL (2.7-7.7); Neutrophil % 71.9 % (47-70); Platelet Count 155 K/mm3 (150-450); RBC Distribution Width CV 12.9 % (11.6-14.6); RBC Distribution Width SD 43.8 fl (35.1-43.9); Red Blood Count 3.61 M/mm3 (4.6-6.2)
[2021-12-15 08:39] LABS: Anion Gap 5 (5-15); BUN 58 mg/dL (7-18); BUN/Creat Ratio 44.6 RATIO (10-20); Calcium,Total 8.8 mg/dL (8.5-10.1); Chloride 108 mmol/L (98-107); EST Glomerular Filtration Rate 56 mL/min (>60); Est Glom Filt Rate - Afr Amer 68 mL/min (>60); Estimated Creatinine Clearance 38.11 ml/min; Glucose 170 mg/dL (74-106); Potassium 4.2 mmol/L (3.5-5.1); Sodium Level 140 mmol/L (136-145)
[2021-12-15] MEDS: Aspirin 81 MG TAB.CHEW PO (08:50)
[2021-12-15] MEDS: Glimepiride 4 MG Tablet PO (08:50)
[2021-12-15] MEDS: Lisinopril 20 MG Tablet PO (08:50)
[2021-12-15] MEDS: oxyCODONE 5 MG Tablet PO ×3 (08:51→18:38)
[2021-12-15] MEDS: Heparin Injection (Vial) 5,000 UNIT/ML VIAL 5000 UNIT SC ×2 (08:52→21:51)
--- NOTE | 2021-12-15 10:04 | CASEMGMT ---
Social Work SW informed precert has been obtained and pt can discharge to [facility] when medically ready. Physician updated. SW met with pt and informed and pt agreeable to discharge plan. Plan: [facility] when medically ready GABI [facility]
[2021-12-15] MEDS: Acetaminophen 325 MG Tablet 650 MG PO (11:17)
[2021-12-15] MEDS: Furosemide 40 MG/4 ML Vial IV (11:36)
[2021-12-15 11:51] LABS: Bedside Glucose 271 mg/dL (74-106)
[2021-12-15 14:04] LABS: BNP,B-Type NATRIURETIC PEPTIDE 116.1 pg/mL (0-100)
--- NOTE | 2021-12-15 15:00 | CT_ITS ---
STUDY: CTA CHEST REASON FOR EXAM: Male, 81 years old. Tachycardia RADIATION DOSAGE (If Supplied By Facility): CTDIvol = ( 14.84 ) mGy, DLP = ( 563.42 ) mGycm TECHNIQUE: The examination was performed with the intravenous administration of IV 100mL Isovue-370. Post-processing of the angiographic images was performed, with multiplanar reformation and 3D reconstruction. Individualized dose optimization techniques were used for this CT. COMPARISON: None. FINDINGS: Normal enhancement of the main pulmonary artery and right and left pulmonary arteries. Normal enhancement of the bilateral peripheral pulmonary arteries. There is no demonstrated pulmonary embolism. There is atherosclerotic calcification of the aortic arch with tortuosity. There is no demonstrated aortic dissection. There are calcifications of the coronary arteries. Normal mediastinum. Normal hilar regions. Normal visualized trachea and bronchi. Hyperinflation. There is evidence of emphysematous changes with a small centrilobular emphysematous changes worse in the upper lobes. No focal consolidation is seen. Mild scarring is seen along the anterior medial aspect of the lingular segment of the left upper lobe as well as in the medial right middle lobe and both lower lobes. Focal calcification of the pleural plaques at the right lung base. Normal chest wall structures. There are degenerative changes of thoracic spine. Small gallstones are seen along the dependent portion of the gallbladder lumen. Small bilateral renal cysts. CT/CTA Chest W/WO Contrast IMPRESSION: No evidence of pulmonary embolism. Findings suggestive of emphysema with centrilobular changes more prominent in the upper lobes. 4. Calcified right pleural plaques. Electronically Signed: Ishaan La MD at 15:36 EDT ,
--- NOTE | 2021-12-15 15:22 | PN.HOSP_ITS ---
Subjective Subjective Patient seen and examined. Still complaining of pain in his elbows and his ankles. He had no other complaints. However later in the day patient was noted to be persistently tachycardic and tachypneic. He was in positive fluid balance by ~ 2.8L, so ws given a dose of lasix IV 40m g x 1. Objective Data Objective Data Vital Signs: Vital Signs Temp Pulse Resp BP Pulse Ox O2 Del Method O2 Flow Rate 98.2 F 113 H 22 H 139/59 H 96 Room Air 2 12/15/21 14:41 12/15/21 14:48 12/15/21 14:51 12/15/21 14:48 12/15/21 14:41 12/15/21 14:51 12/15/21 09:25 Oxygen Flow Rate (L/min) 2 Oxygen Delivery Method Room Air Weight: 203 lb 0.732 oz Body Mass Index (BMI) 33.0 Intake & Output: Intake and Output for Last 24 Hours 12/13/21 12/14/21 12/15/21 23:59 23:59 23:59 Intake Total 500 / 500 3750 / 3750 500 / 500 Output Total 300 / 1075 1700 / 1900 1150 / 1150 Balance 200 / -575 2050 / 1850 -650 / -650 Lab / Micro Data Result Diagrams: 12/15/21 08:10 12/15/21 08:10 Labs: Laboratory Results - last 24 hr 12/14/21 17:07: POC Glucose 219 H 12/14/21 21:15: POC Glucose 240 H 12/15/21 06:27: POC Glucose 169 H 12/15/21 08:10: WBC 9.0, RBC 3.61 L, Hgb 11.3 L, Hct 33.4 L, MCV 92.5, MCH 31.3, MCHC 33.8, RDW Std Deviation 43.8, RDW Coeff of John 12.9, Plt Count 155, MPV 10.3, Immature Gran % (Auto) 1.700 H, Neut % (Auto) 71.9 H, Lymph % (Auto) 16.7 L, [place] % (Auto) 6.7, Eos % (Auto) 2.9, Baso % (Auto) 0.1, Absolute Neuts (auto) 6.5, Absolute Lymphs (auto) 1.50, Nucleated RBC % 0 12/15/21 08:10: Sodium 140, Potassium 4.2, Chloride 108 H, Carbon Dioxide 27.0, Anion Gap 5, BUN 58 H, Creatinine 1.30, Estim Creat Clear Calc 38.11, Est GFR (MDRD) Af Amer 68, Est GFR (MDRD) Non-Af 56 L, BUN/Creatinine Ratio 44.6 H, Glucose 170 H, Calcium 8.8 12/15/21 08:10: B-Natriuretic Peptide 116.1 H 12/15/21 11:23: POC Glucose 271 H Physical Exam Const alert, oriented x3 and no apparent distress HEENT head/scalp atraumatic, moist oral mucous membranes and oropharynx normal Head and Scalp: normocephalic Mouth: oral and palatal mucosa normal Eyes PERRL, EOMs intact bilaterally and conjunctivae normal Neck no lymphadenopathy, supple and no JVD Resp no retractions Resp Narrative: tachypneic Cardio regular rhythm, S1 normal heart sound, S2 normal heart sound and no murmurs Cardio Narrative: tachycardic GI normal to inspection, nondistended, normoactive bowel sounds, soft to palpation, non-tender and non-distended Extremity Extremity Narrative: mild swelling and tenderness of both elbows and ankles due to acute gouty arthritis. Neuro oriented x3, CN's II-XII intact bilaterally and moves all extremities Sensorium / Orientation: awake and alert Motor Exam: strength 5/5 throughout Psych affect normal Assessment & Plan Assessment/Plan (1) Debility: (2) Gout: PLAN: Plan #Acute gout flare up with debility * still complains of pain in both ankles and both elbows due to gout * on steroids and allopurinol * continue hydration with IVF * * oral oxycodone prn * PT/OT On board * #Sinus tachycardia * patient tachycardic and tachypneic this afternoon. Was in positive fluid balance were given a dose of IV Lasix 40 mg x 1 but still remains tachycardic and tachypneic. * CT of the chest ordered to rule out a PE and results pending. * BNP was only 116 * #Heart failure preserved ejection fraction: * Has known EF of 65%. Not in exacerbation. Diuretics on hold on account of impaired kidney function. * On room air. Stable. * #CKD stage III B: Cr is 1.30 today, with baseline of ~ 1.5. Will monitor #Hypertension: * Lisinopril and hydrochlorothiazide as well as torsemide on hold o/a of impaired kidney function. * Will resume BP meds as blood pressure is down to baseline. * #Type 2 diabetes mellitus; on ISS> Accuchecks ACHS. #Hyperlipidemia: on statin #COPD: not in exacerbation. On breathing trreatment with bronchodilators. #DVT prophylaxis: heparin Charges/Coding Visit Charges Inpatient E&M: 79240 Subs Hosp L2
[2021-12-15] MEDS: Albuterol 2.5 MG/3 ML VIAL.NEB. INHALATION (15:30)
[2021-12-15 17:45] LABS: Bedside Glucose 178 mg/dL (74-106)
[2021-12-15 19:16] LABS: Thyroid Stim Hormone (TSH) 3.74 uIU/mL (0.358-3.74)
[2021-12-15] MEDS: Ipratropium 0.5 MG/2.5 ML SOLUTION INHALATION ×2 (19:25→22:40)
[2021-12-15] MEDS: Atorvastatin Calcium 80 MG Tablet PO (21:40)
[2021-12-15 22:30] LABS: Bedside Glucose 286 mg/dL (74-106)
[2021-12-16] VITALS (11 sets, daily range): BP systolic 135–158; BP diastolic 56–65; PULSE 85–120; RESP 14–24; TEMP 36.2–37; O2SAT 92–99
[2021-12-16] MEDS: Ipratropium 0.5 MG/2.5 ML SOLUTION INHALATION ×4 (03:00→14:13)
[2021-12-16] MEDS: Menthol/Lanolin/Calamine/Znox 113 GM Tube 1 APPLIC TOPICAL (06:17)
[2021-12-16] MEDS: hydrALAZINE 10 MG Tablet PO ×2 (06:18→13:46)
[2021-12-16 06:40] LABS: Bedside Glucose 149 mg/dL (74-106)
[2021-12-16] MEDS: Glimepiride 4 MG Tablet PO (08:11)
[2021-12-16] MEDS: Aspirin 81 MG TAB.CHEW PO (08:11)
[2021-12-16] MEDS: Heparin Injection (Vial) 5,000 UNIT/ML VIAL 5000 UNIT SC (10:34)
[2021-12-16] MEDS: oxyCODONE 5 MG Tablet PO ×2 (10:34→16:34)
[2021-12-16] MEDS: Lisinopril 20 MG Tablet PO (10:34)
[2021-12-16] MEDS: Senna/Docusate Sodium 1 Tablet 2 TABLET PO (10:41)
--- NOTE | 2021-12-16 10:44 | DS.PCM_ITS ---
Providers Date of Admission: 12/13/21 Date of Discharge: 12/16/21 Primary Care Physician: Dr. Adrianna Nichols, DO Consultations 12/13/21 22:50 Consult: Onc/Wound/senior analyst market intelligence Routine Comment: Reason for Consult:: wound to bilat buttocks Reason For Visit: FTT ADULT Diagnosis Discharge Diagnosis (1) Gout: Status: Inactive Code(s): M10.9 - Gout, unspecified (2) Polyarthralgia: Status: Acute Code(s): M25.50 - Pain in unspecified joint Plan #Acute gout flare up with debility * still complains of pain in both ankles and both elbows due to gout * on steroids and allopurinol * continue hydration with IVF * * oral oxycodone prn * PT/OT On board * #Sinus tachycardia * patient tachycardic and tachypneic this afternoon. Was in positive fluid balance were given a dose of IV Lasix 40 mg x 1 but still remains tachycardic and tachypneic. * CT of the chest ordered to rule out a PE and results pending. * BNP was only 116 * #Heart failure preserved ejection fraction: * Has known EF of 65%. Not in exacerbation. Diuretics on hold on account of impaired kidney function. * On room air. Stable. * #CKD stage III B: Cr is 1.30 today, with baseline of ~ 1.5. Will monitor #Hypertension: * Lisinopril and hydrochlorothiazide as well as torsemide on hold o/a of impaired kidney function. * Will resume BP meds as blood pressure is down to baseline. * #Type 2 diabetes mellitus; on ISS> Accuchecks ACHS. #Hyperlipidemia: on statin #COPD: not in exacerbation. On breathing trreatment with bronchodilators. #DVT prophylaxis: heparin Medications at Discharge Home Medications atorvastatin 80 mg tablet 80 mg PO DAILY CHOLESTEROL 05/02/21 cholecalciferol (vitamin D3) 25 mcg (1,000 unit) capsule 25 mcg PO DAILY vitamin 05/02/21 glimepiride 4 mg tablet 4 mg PO DAILY diabetes 05/02/21 ipratropium 0.5 mg-albuterol 3 mg (2.5 mg base)/3 mL nebulization soln 3 ml inhalation 4X/DAY PRN sob 05/02/21 liothyronine 25 mcg tablet 25 mcg PO DAILY THYROID 05/02/21 metformin 1,000 mg tablet 500 mg PO BID DM 05/02/21 omega-3 fatty acids-vitamin E 1,000 mg capsule 2 cap PO BID SUPPLEMENT 05/02/21 tiotropium bromide 18 mcg capsule with inhalation device (Spiriva with HandiHaler) 18 mcg inhalation DAILY SOB 05/02/21 torsemide 10 mg tablet 5 mg PO DAILY 12/08/21 aspirin 81 mg chewable tablet 81 mg PO DAILY 12/13/21 vitamins A,C,O-txol-lcfzoz 14,320 unit-226 mg-200 unit capsule (PreserVision AREDS) 1 cap PO BID 12/13/21 allopurinol 100 mg tablet 10 mg PO DAILY gout 12/14/21 lisinopril 20 mg tablet 20 mg PO DAILY #30 tabs 12/16/21 oxycodone 5 mg tablet 5 mg PO Q4H PRN PRN Pain Score 4-10 3 days #18 tabs 12/16/21 Hospital Course Operations None Summary of Care Provided Minutes Spent on Discharge: 45 Hospital Course: Patient is an 81 y/o male with an extensive PMH as outlined who was admitted via the ED on 12/13/2021 with a complaint of pain in his right lower extremity and right foot. He had been seen in the ED a few days prior to admission, and as placed on allopurinol and prednisone but his symptoms werent improving so he came in the ED. He couldnt also care for himself at home. He was admitted and managed for debility due to acute flare up of gout arthritis. He was continued on his allopurinol and steroids and placed on pain meds. His liver enzymes were also elevated, so he had a liver ultrasound which showed hepatomegaly with fatty infiltration of the liver, with sludge and small gallstones seen within the gallbladder. He had negative Lan's sign and didnt have any abdominal pain. Hospital course was complicated by sinus tachycardia which was thought to be due to albuterol aerosols. CTA chest was negative for any evidence of PE. Tachycardia resolved after albuterol was discontinued. He remained stable. PT/OT evaluated patient and deemed him as needing skilled therapy. He remained stable and was discharged to SNF on 12/16/2021. He is to follow up with his PCP within 1-2 weeks. Patient seen and examined prior to discharge. He felt well and had no active complaints. He had an uneventful night, and review of your systems is otherwise negative. Labs and vitals reviewed. Home meds reviewed and reconciled. Physical Exam Const alert, oriented x3 and no apparent distress General Appearance: cooperative, comfortable and well kempt Orientation / Consciousness: awake Exam Limitations: no limitations Nutritional Appearance: obese HEENT normocephalic, head/scalp atraumatic, hearing grossly normal bilaterally, moist oral mucous membranes and oropharynx normal Mouth: oral and palatal mucosa normal Eyes PERRL, EOMs intact bilaterally and conjunctivae normal Neck no lymphadenopathy, supple and no JVD Resp normal respiratory effort and no retractions Resp Narrative: tachypneic Cardio regular rate, regular rhythm, S1 normal heart sound, S2 normal heart sound and no murmurs Cardio Narrative: tachycardic GI normal to inspection, nondistended, normoactive bowel sounds, soft to palpation, non-tender and non-distended Extremity Extremity Narrative: mild swelling and tenderness of both elbows and ankles due to acute gouty arthritis. Skin no rashes or lesions noted Neuro oriented x3, CN's II-XII intact bilaterally and moves all extremities Sensorium / Orientation: awake and alert Motor Exam: strength 5/5 throughout Psych affect normal Weight / BMI Weight Weight: 201 lb 15.095 oz Body Mass Index (BMI) 33.0 ABG / Lab / Microbiology Data Result Diagrams: 12/15/21 08:10 12/15/21 08:10 Laboratory: Laboratory Results - last 24 hr 12/15/21 08:10: B-Natriuretic Peptide 116.1 H 12/15/21 08:10: TSH 3.74 12/15/21 11:23: POC Glucose 271 H 12/15/21 17:13: POC Glucose 178 H 12/15/21 21:48: POC Glucose 286 H 12/16/21 06:16: POC Glucose 149 H Radiography Diagnostic Testing: Radiology Impression Chest CTA 12/15/21 15:00 IMPRESSION: No evidence of pulmonary embolism. Findings suggestive of emphysema with centrilobular changes more prominent in the upper lobes. 4. Calcified right pleural plaques. Electronically Signed: Ishaan La MD at 15:36 EDT , D/C Instructions Discharge Diet: Low fat / Low cholesterol Discharge Activity: Return to Normal Activity Weight Bearing Status: Weight bearing as tolerated Call your doctor if you observe: Fever of 101 or Higher, Dizziness, Swelling in the ankles, Chest pain, Increased palpitations (irregular heartbeat) and Uncontrolled pain Meaningful Use Info Meaningful Use Diagnoses (Choose all that apply): None applicable Discharge Plan Admission Admit Date/Time: 12/13/21 13:29 Primary Reason for Your Visit: acute gouty arthritis, debility Attending Provider: Sarai Alcantara Primary Care Provider: Adrianan Nichols Consulting Providers: Tracy Angel Instructions Patient Instructions: What Is Gout?, ED Gout Discharge Orders/Prescriptions Prescriptions: New lisinopril 20 mg Tablet 20 mg PO DAILY Qty: 30 1RF oxycodone 5 mg Tablet 5 mg PO Q4H PRN PRN (Reason: Pain Score 4-10) 3 Days Qty: 18 0RF Continued atorvastatin 80 mg tablet 80 mg PO DAILY Label Comments: TAKE 1 TABLET BY MOUTH ONCE DAILY ipratropium-albuterol 0.5 mg-3 mg(2.5 mg base)/3 mL solution for nebulization 3 ml inhalation 4X/DAY PRN (Reason: sob) Label Comments: inhale contents of 1 vial ( 3 milliliters ) in nebulizer by mouth... (REFER TO PRESCRIPTION NOTES). liothyronine 25 mcg tablet 25 mcg PO DAILY Label Comments: TAKE 1 TABLET BY MOUTH ONCE DAILY FOR 90 DAYS metformin 1,000 mg tablet 500 mg PO BID glimepiride 4 mg tablet 4 mg PO DAILY Label Comments: TAKE 1 TABLET BY MOUTH ONCE DAILY Spiriva with HandiHaler 18 mcg capsule, w/inhalation device 18 mcg INHALATION DAILY Label Comments: INHALE THE CONTENTS OF 1 CAPSULE TWICE EACH TIME VIA HANDIHALER ONCE DAILY cholecalciferol (vitamin D3) 25 mcg (1,000 unit) Capsule 25 mcg PO DAILY omega-3 fatty acids-vitamin E 1,000 mg Capsule 2 cap PO BID torsemide 10 mg tablet 5 mg PO DAILY PreserVision AREDS 14320-226-200 [id number] Capsule 1 cap PO BID aspirin 81 mg Tablet,Chewable 81 mg PO DAILY allopurinol 100 mg tablet 10 mg PO DAILY Label Comments: TAKE 1 TABLET BY MOUTH ONCE DAILY Discontinued lisinopril-hydrochlorothiazide 20-12.5 mg tablet 1 tab PO DAILY Label Comments: TAKE 1 TABLET BY MOUTH ONCE DAILY Referrals / Follow Up: Adrianna Nichols DO [Primary Care Provider] - Within 2 Weeks Disposition Disposition (needs filled in before D/C Order can be placed): Longterm Facility Charges/Coding Visit Charges Inpatient E&M: 43148 Disch Hosp
--- NOTE | 2021-12-16 11:13 | TREXTCAR_ITS ---
Diet Diet Order/Speech Therapy: 12/14/21 09:40 Diet: Consistent Carb - Calorie Controlled Is pt able to select menu?: Yes How many daily calories?: 1800 calorie Routine Orders/Code Status Enema Type: Fleetz Enema Frequency: Daily PRN Suppository Type: Dulcolax 10mg Suppository Frequency: Daily PRN O2 Frequency: PRN Keep PO Greater than or Equal to (%): 90 Wound(s) bilat. buttocks: Wound Type: Pressure Injury left buttock: Wound Type: Pressure Injury right buttock: Wound Type: Pressure Injury Therapies Weight Bearing: Weight bearing as tolerated Physical Therapy: Eval and Treat Occupational Therapy: Eval and Treat Problem/Diagnosis (1) Gout: Status: Inactive Code(s): M10.9 - Gout, unspecified (2) Polyarthralgia: Status: Acute Code(s): M25.50 - Pain in unspecified joint Plan #Acute gout flare up with debility * still complains of pain in both ankles and both elbows due to gout * on steroids and allopurinol * continue hydration with IVF * * oral oxycodone prn * PT/OT On board * #Sinus tachycardia * patient tachycardic and tachypneic this afternoon. Was in positive fluid balance were given a dose of IV Lasix 40 mg x 1 but still remains tachycardic and tachypneic. * CT of the chest ordered to rule out a PE and results pending. * BNP was only 116 * #Heart failure preserved ejection fraction: * Has known EF of 65%. Not in exacerbation. Diuretics on hold on account of impaired kidney function. * On room air. Stable. * #CKD stage III B: Cr is 1.30 today, with baseline of ~ 1.5. Will monitor #Hypertension: * Lisinopril and hydrochlorothiazide as well as torsemide on hold o/a of impaired kidney function. * Will resume BP meds as blood pressure is down to baseline. * #Type 2 diabetes mellitus; on ISS> Accuchecks ACHS. #Hyperlipidemia: on statin #COPD: not in exacerbation. On breathing trreatment with bronchodilators. #DVT prophylaxis: heparin Allergies/Procedures Done in Hospital Allergies codeine Adverse Reaction (Verified 12/08/21 08:38) Upset Stomach Procedures: None Type of Care/Length of Stay Estimated LOS: Convalescent Care Less Than 30 days Type of Care Needed: Skilled Rehab Potential: Fair Prognosis: Fair Additional Orders/Day of Discharge Day of Discharge: 12/16/21 Discharge Plan Admission Admit Date/Time: 12/13/21 13:29 Primary Reason for Your Visit: acute gouty arthritis, debility Attending Provider: Sarai Alcantara Primary Care Provider: Adrianna Nichols Consulting Providers: Tracy Angel Instructions Patient Instructions: What Is Gout?, ED Gout Discharge Orders/Prescriptions Prescriptions: New lisinopril 20 mg Tablet 20 mg PO DAILY Qty: 30 1RF oxycodone 5 mg Tablet 5 mg PO Q4H PRN PRN (Reason: Pain Score 4-10) 3 Days Qty: 18 0RF Continued atorvastatin 80 mg tablet 80 mg PO DAILY Label Comments: TAKE 1 TABLET BY MOUTH ONCE DAILY ipratropium-albuterol 0.5 mg-3 mg(2.5 mg base)/3 mL solution for nebulization 3 ml inhalation 4X/DAY PRN (Reason: sob) Label Comments: inhale contents of 1 vial ( 3 milliliters ) in nebulizer by mouth... (REFER TO PRESCRIPTION NOTES). liothyronine 25 mcg tablet 25 mcg PO DAILY Label Comments: TAKE 1 TABLET BY MOUTH ONCE DAILY FOR 90 DAYS metformin 1,000 mg tablet 500 mg PO BID glimepiride 4 mg tablet 4 mg PO DAILY Label Comments: TAKE 1 TABLET BY MOUTH ONCE DAILY Spiriva with HandiHaler 18 mcg capsule, w/inhalation device 18 mcg INHALATION DAILY Label Comments: INHALE THE CONTENTS OF 1 CAPSULE TWICE EACH TIME VIA HANDIHALER ONCE DAILY cholecalciferol (vitamin D3) 25 mcg (1,000 unit) Capsule 25 mcg PO DAILY omega-3 fatty acids-vitamin E 1,000 mg Capsule 2 cap PO BID torsemide 10 mg tablet 5 mg PO DAILY PreserVision AREDS [id number] Capsule 1 cap PO BID aspirin 81 mg Tablet,Chewable 81 mg PO DAILY allopurinol 100 mg tablet 10 mg PO DAILY Label Comments: TAKE 1 TABLET BY MOUTH ONCE DAILY Discontinued lisinopril-hydrochlorothiazide 20-12.5 mg tablet 1 tab PO DAILY Label Comments: TAKE 1 TABLET BY MOUTH ONCE DAILY Referrals / Follow Up: Adrainna Nichols DO [Primary Care Provider] - Within 2 Weeks Disposition Disposition (needs filled in before D/C Order can be placed): [facility]
[2021-12-16 11:55] LABS: Bedside Glucose 284 mg/dL (74-106)
[2021-12-16] MEDS: Insulin Lispro 100 UNIT/ML INSULN.PEN SC ×2 (12:15→16:28)
--- NOTE | 2021-12-16 14:08 | PHA.DC.MR ---
Pharmacy Service has performed discharge medication reconciliation for this patient. The patient's discharge medication list was reviewed for discrepancies and discrepancies were resolved. Home Medications atorvastatin 80 mg tablet 80 mg PO DAILY CHOLESTEROL 05/02/21 cholecalciferol (vitamin D3) 25 mcg (1,000 unit) capsule 25 mcg PO DAILY vitamin 05/02/21 glimepiride 4 mg tablet 4 mg PO DAILY diabetes 05/02/21 ipratropium 0.5 mg-albuterol 3 mg (2.5 mg base)/3 mL nebulization soln 3 ml inhalation 4X/DAY PRN sob 05/02/21 liothyronine 25 mcg tablet 25 mcg PO DAILY THYROID 05/02/21 metformin 1,000 mg tablet 500 mg PO BID DM 05/02/21 omega-3 fatty acids-vitamin E 1,000 mg capsule 2 cap PO BID SUPPLEMENT 05/02/21 tiotropium bromide 18 mcg capsule with inhalation device (Spiriva with HandiHaler) 18 mcg inhalation DAILY SOB 05/02/21 torsemide 10 mg tablet 5 mg PO DAILY 12/08/21 aspirin 81 mg chewable tablet 81 mg PO DAILY 12/13/21 vitamins A,C,V-obsd-lndyev 14,320 unit-226 mg-200 unit capsule (PreserVision AREDS) 1 cap PO BID 12/13/21 allopurinol 100 mg tablet 10 mg PO DAILY gout 12/14/21 lisinopril 20 mg tablet 20 mg PO DAILY #30 tabs 12/16/21 oxycodone 5 mg tablet 5 mg PO Q4H PRN PRN Pain Score 4-10 3 days #18 tabs 12/16/21
--- NOTE | 2021-12-16 15:36 | CASEMGMT ---
Social Work Per physician, pt is ready for discharge today. SW met with pt and informed and pt is agreeable to discharge. Pt states he is normally on 2L of oxygen at home and is able to regulate it himself. Pt agreeable to transport via [facility] van and aware of cost. Phone call to pt dgt and informed of discharge plan and she is agreeable. PASRR completed and sent along with orders and Cov[facility] results to [facility]. Pt nurse updated on discharge time and phone call to [facility] with discharge time. Plan: [facility], skilled level of care. GABI Macias
[2021-12-16] MEDS: Acetaminophen 325 MG Tablet 650 MG PO (16:33)
[2021-12-16 16:45] LABS: Bedside Glucose 207 mg/dL (74-106)
--- NOTE | 2021-12-16 16:53 | NURSING ---
REPORT CALLED [facility] AND SPOKE WITH RICHARD MARQUEZ
== END 2021-12-16 19:15 | disposition skilled nursing facility (03) ==
LOC: ED 13:40 → MS3 13:42
PROVIDERS: Admitting Provider Family Medicine; Emergency Provider Emergency Medicine; PCP Family Medicine; Visit Provider Student in an Organized Health Care Education/Training Program
DX: M10.9 Gout, unspecified (principal); J44.9 Chronic obstructive pulmonary disease, unspecified; I13.0 Hypertensive heart and chronic kidney disease with heart failure and stage 1 through stage 4 chronic kidney disease, or unspecified chronic kidney disease; I50.32 Chronic diastolic (congestive) heart failure; E11.22 Type 2 diabetes mellitus with diabetic chronic kidney disease; J96.11 Chronic respiratory failure with hypoxia; N18.32 Chronic kidney disease, stage 3b; Z79.84 Long term (current) use of oral hypoglycemic drugs; Z87.891 Personal history of nicotine dependence; R53.81 Other malaise; E86.0 Dehydration; E78.5 Hyperlipidemia, unspecified; K76.0 Fatty (change of) liver, not elsewhere classified; Z79.899 Other long term (current) drug therapy; Z79.82 Long term (current) use of aspirin; E66.9 Obesity, unspecified; Z68.34 Body mass index [BMI] 34.0-34.9, adult; R62.7 Adult failure to thrive; E03.9 Hypothyroidism, unspecified; D64.9 Anemia, unspecified
CPT/HCPCS: 36415; 71275; 76705; 80048; 80053; 81001; 82962; 83880; 84145; 84443; 84550; 85025; 85610; 85652; 85730; 86140; 87426; 93005; 94640; 96361; 96372; 96374; 96375; 96376; 97110; 97116; 97162; 97166; 97530; 97535; 99218; 99251; 99285; J7030; J7040; Q9967; A4216; G0378; G0463; J1940

== ENCOUNTER 2022-03-11 23:38 | Inpatient (IN) | payer MEDICARE, SELFPAY ==
[2022-03-11 23:39] VITALS: BP 160/107; PULSE 112; TEMP 36.6; O2SAT 97; BMI 34.8
--- NOTE | 2022-03-11 23:47 | EKG12_ITS ---
Test Reason : Blood Pressure : / mmHG Vent. Rate : 092 BPM Atrial Rate : 092 BPM P-R Int : 198 ms QRS Dur : 082 ms QT Int : 350 ms P-R-T Axes : 042 -09 044 degrees QTc Int : 432 ms Normal sinus rhythm Minimal voltage criteria for LVH, may be normal variant ( R in aVL ) Borderline ECG Confirmed by RADHA CARRILLO, YURIDIA ([id number]), fashion editor ZACKARY MARTINEZ ([id number]) on 03/14/2022 10:42:27 AM Referred By: Confirmed By:YURIDIA GARCIA MD
[2022-03-11 23:49] VITALS: O2SAT 97
--- NOTE | 2022-03-11 23:49 | EDS_ITS ---
HPI History of Present Illness Chief Complaint: Shortness of Breath Informant: patient and family (daughter) Onset/Context/Timing Onset: Days (3) Context: gradual and onset Timing: Continuous Quality: Positive for - (sob) Current Severity: Moderate Maximum Severity: Moderate Worsened by: Exertion, Lying flat and Coughing Relieved by: Rest and Oxygen Associated Symptoms cough and clear sputum Chest Pain: Positive for None Narrative Narrative: 81-year-old male with 3 days of progressively worsening dyspnea. His legs are chronically swollen and he thinks he may be a little worse. No chest pain. He does have a productive cough, no fevers that he knows of. No sick contacts that he knows of. No known history of heart problems according to the patient. He has history of COPD and is on 2 L home oxygen, EMS increase that to 4 and he states that has helped a little. Patient had this before and states it felt like when he had fluid removed from around his lung, it was not recent and he does not know why he developed that, nor can he tell me any other details on it except for being given some pill. [facility] Medical History Chronic respiratory failure with hypoxia COPD (chronic obstructive pulmonary disease) COPD (chronic obstructive pulmonary disease) Debility Diabetes mellitus, type 2 Former tobacco use HLD (hyperlipidemia) HTN (hypertension) Hypothyroidism Obesity Polyarthralgia Home Medications atorvastatin 80 mg tablet 80 mg PO DAILY CHOLESTEROL 05/02/21 [History Last Taken 12/13/21] cholecalciferol (vitamin D3) 25 mcg (1,000 unit) capsule 25 mcg PO DAILY vitamin 05/02/21 [History Last Taken 12/13/21] glimepiride 4 mg tablet 4 mg PO DAILY diabetes 05/02/21 [History Last Taken 12/12/21] ipratropium 0.5 mg-albuterol 3 mg (2.5 mg base)/3 mL nebulization soln 3 ml inhalation 4X/DAY PRN sob 05/02/21 [History Last Taken 3 Days Ago ~12/10/21] liothyronine 25 mcg tablet 25 mcg PO DAILY THYROID 05/02/21 [History Last Taken 12/13/21] metformin 1,000 mg tablet 500 mg PO BID DM 05/02/21 [History Last Taken 12/13/21] omega-3 fatty acids-vitamin E 1,000 mg capsule 2 cap PO BID SUPPLEMENT 05/02/21 [History Last Taken 12/13/21] tiotropium bromide 18 mcg capsule with inhalation device (Spiriva with HandiHaler) 18 mcg inhalation DAILY SOB 05/02/21 [History Last Taken 12/13/21] torsemide 10 mg tablet 5 mg PO DAILY 12/08/21 [History Last Taken 12/12/21] aspirin 81 mg chewable tablet 81 mg PO DAILY 12/13/21 [History Last Taken 12/13/21] vitamins A,C,E-erta-zpuasj 14,320 unit-226 mg-200 unit capsule (PreserVision AREDS) 1 cap PO BID 12/13/21 [History Last Taken 12/13/21] allopurinol 100 mg tablet 10 mg PO DAILY gout 12/14/21 [History Last Taken Unknown] lisinopril 20 mg tablet 20 mg PO DAILY #30 tabs 12/16/21 [Rx Last Taken Unknown] oxycodone 5 mg tablet 5 mg PO Q4H PRN PRN Pain Score 4-10 3 days #18 tabs 12/16/21 [Rx Last Taken Unknown] Allergy/AdvReac Type Severity Reaction Status Date / Time codeine AdvReac Upset Verified 12/08/21 08:38 Stomach Family History Mother CVA (cerebral vascular accident) Heart disease Myocardial infarction Hx of CABG Hypertension Father CVA (cerebral vascular accident) Heart disease Surgical History S/P cataract extraction Social History household members: none housing: house Smoking Status: Former smoker how long ago did patient quit smoking: Quit 2011, prior 1 ppd since teen. alcohol intake: former year quit: 2010 substance use type: does not use ROS ROS ED Constitutional Constitutional ED: Denies chills or fever(s) Eyes Eyes: Denies change in vision or diplopia ENT ENT ED: Denies rhinorrhea or sore throat Cardiovascular Cardiovascular: Reports leg edema and orthopnea; Denies chest pain, palpitations or racing heartbeat Respiratory/Chest Respiratory/Chest: Reports cough, dyspnea, dyspnea on exertion, orthopnea and sputum Gastrointestinal Gastrointestinal: Denies abdominal pain, diarrhea, nausea or vomiting Genitourinary Genitourinary ED: Denies dysuria or hematuria Musculoskeletal Musculoskeletal: Denies back pain or neck pain Integumentary Denies abscess or rash Neurologic Neurologic: Denies headache(s), paresthesias or weakness Psychiatric Psychiatric: Denies anxiety or suicidal thoughts EXAM Physical Exam Const Vital Signs: 03/11/22 23:39 03/12/22 00:44 03/11/22 23:49 Temperature 97.9 F 98.0 F Temperature Source Oral Oral Pulse Rate 112 H 96 Respiratory Rate 22 H Respiratory Effort Labored Respiratory Depth Shallow Blood Pressure 160/107 H 169/69 H Blood Pressure Mean 124 102 Pulse Ox 97 98 Oxygen Delivery Method Nasal Cannula Nasal Cannula Nasal Cannula Oxygen Flow Rate (L/min) 4 4 4 03/12/22 01:00 03/12/22 01:39 Temperature 98.0 F Temperature Source Oral Pulse Rate 100 93 Respiratory Rate 22 H 20 H Respiratory Effort Respiratory Depth Blood Pressure 159/65 H 162/5 H Blood Pressure Mean 96 57 Pulse Ox 98 97 Oxygen Delivery Method Nasal Cannula Nasal Cannula Oxygen Flow Rate (L/min) 4 2 Positive well nourished and well developed General Appearance ED: well developed and NAD HEENT Reports moist mucous membranes normocephalic and atraumatic Eyes PERRL and EOMs intact bilaterally Neck full ROM, supple, no meningeal signs and no JVD Resp Resp Narrative: Tachypnea, no respiratory distress. Decreased breath sounds on the right, diminished both bases. Trachea midline. Cardio regular rate, regular rhythm and no murmurs GI non-tender and non-distended Auscultation: normoactive bowel sounds Palpation: soft Back/Spine no CVA tenderness General Back: other FROM Extremity normal to inspection General Extremety ED: Yes edema; Negative for pulses abnormal or tenderness General Extremity: edema bilateral lower extremity Details: mild (Compression stockings in place. Mild pitting edema to the knees symmetrically. No tenderness shins or calves.); Negative for pulses abnormal Neuro oriented x3, CN's II-XII intact bilaterally and no sensory deficits noted Sensorium / Orientation: awake and alert Motor Exam: strength 5/5 throughout Psych mental status grossly normal Skin no rashes or lesions noted and no wounds MDM MDM MDM Narrative Medical decision making narrative: Patient has very small pleural effusions and CHF pattern on my interpretation 1 view chest x-ray, radiology in agreement. He was given Lasix, his BNP did come back slightly elevated, but his troponin higher. His EKG does not show any acute injury pattern. He is hypertensive, and was given Lasix 40 mg IV. He is on torsemide but only 5 mg daily. His last echocardiogram showed an ejection fraction of 65%, he does appear to be in acute CHF. It is possible this is noncardiogenic pulmonary edema as well but less likely. The pleural effusions are small did not appear to be amenable to tapping. He has an increased oxygen requirement compared with baseline. Plan is for admission. Lab Data Attestation: I reviewed the patient's lab results. Labs: Laboratory Results - last 24 hr 03/12/22 03/12/22 03/12/22 00:00 00:00 00:00 WBC 6.1 RBC 3.58 L Hgb 10.9 L Hct 35.0 L MCV 97.8 H MCH 30.4 MCHC 31.1 L RDW Std Deviation 53.0 H RDW Coeff of John 14.6 Plt Count 111 L MPV 11.5 Immature Gran % (Auto) 0.300 Neut % (Auto) 64.1 Lymph % (Auto) 23.2 [place] % (Auto) 7.2 Eos % (Auto) 4.4 Baso % (Auto) 0.8 Absolute Neuts (auto) 3.9 Absolute Lymphs (auto) 1.41 Nucleated RBC % 0 Sodium 147 H Potassium 4.7 Chloride 113 H Carbon Dioxide 31.0 Anion Gap 3 L BUN 32 H Creatinine 1.31 H Estim Creat Clear Calc 37.82 Est GFR (MDRD) Af Amer 67 Est GFR (MDRD) Non-Af 56 L BUN/Creatinine Ratio 24.4 H Glucose 192 H Calcium 8.7 Troponin I High Sens 588 H* B-Natriuretic Peptide 285.7 H Radiography Chest X-Ray - ED: 1 View, Read by ED Physician, CHF, Right Effusion (Small) and Left Effusion (Small) Diagnostic Testing: Clinical Impression(s) from Imaging Studies Chest X-Ray 03/12/22 00:50 IMPRESSION: Findings most consistent with mild congestive heart failure with small pleural effusions. Electronically Signed: Jannette Moya MD at 1:32 EST , Rhythm Strip Rhythm Strip: Sinus Rhythm Rate: 95 Ectopy: None EKG Initial EKG: Attestation: I personally reviewed and interpreted this EKG as follows: Interpretation: Sinus Rhythm and No Acute Injury Pattern Prior EKG tracings: available for review Prior: Unchanged Discharge Plan Dx/Rx/DC Orders Clinical Impression: Acute CHF (congestive heart failure), Elevated troponin, Hypoxemia, Bilateral pleural effusion Disposition Disposition: Acute Care Hospital [facility]
[2022-03-11] MEDS: Ipratropium/Albuterol Sulfate 3 ML AMPUL.NEB INHALATION (23:58)
[2022-03-12] VITALS (17 sets, daily range): BP systolic 153–169; BP diastolic 5–69; PULSE 89–107; RESP 16–22; TEMP 36.2–36.7; O2SAT 92–98; BMI 73.3
--- NOTE | 2022-03-12 00:50 | RAD_ITS ---
INDICATION: sob PT REPORTS TO ER WITH TROUBLE BREATHING X 3 DAYS WITH TODAY BEING THE WORST. PT AND PT FAMILY THINK PT IS RETAINING WATER. HOME NEBULIZER DID NOT WORK PER PT. PT ON HOME O2 OF 2L. EXAMINATION/TECHNIQUE: X-RAY - XR Chest 2 Views COMPARISON: 05/03/2021. FINDINGS: LINES/DEVICES: None. LUNGS: Mild interstitial infiltrates/edema. Small bilateral pleural effusions. No consolidation. No pneumothorax. MEDIASTINUM: The aorta is atherosclerotic. CARDIAC SILHOUETTE: Borderline enlarged. BONES AND SOFT TISSUES: Degenerative changes in the dorsal spine. RAD/Chest PA and Lateral IMPRESSION: Findings most consistent with mild congestive heart failure with small pleural effusions. Electronically Signed: Jannette Moya MD at 1:32 EST ,
[2022-03-12 00:52] LABS: Absolute Lymphocyte Count 1.41 X10^3/uL (0.83-4.51); Absolute Neutrophil Count 3.9 X10^3/uL (2.0-7.7); Basophil# 0.05 X10^3/uL; Basophil% 0.8 % (0-1); Eosinophil# 0.27 X10^3/uL; Eosinophils% 4.4 % (0-5); Hemoglobin 10.9 g/dL (13.0-16.5); Lymphocyte # 1.41 X10^3/ul (0.83-4.51); Lymphocyte % 23.2 % (19-41); Mean Corp Hgb Conc 31.1 g/dL (32-36); Mean Corpuscular Hgb 30.4 pg (27.0-32.0); Mean Corpuscular Volume 97.8 fL (80-94); Mean Platelet Vol. 11.5 fl (6.2-12.0); Monocyte# 0.44 X10^3/uL; Monocyte% 7.2 % (0-10); NRBC Flagged by Analyzer 0 % (0-5); Neutrophil # 3.88 X10^3/uL (2.7-7.7); Neutrophil % 64.1 % (47-70); Platelet Count 111 K/mm3 (150-450); RBC Distribution Width CV 14.6 % (11.6-14.6); Red Blood Count 3.58 M/mm3 (4.6-6.2); White Blood Count 6.1 K/mm3 (4.4-11.0)
[2022-03-12 00:57] LABS: Anion Gap 3 (5-15); BUN 32 mg/dL (7-18); BUN/Creat Ratio 24.4 RATIO (10-20); Calcium,Total 8.7 mg/dL (8.5-10.1); Chloride 113 mmol/L (98-107); Creatinine, Serum 1.31 mg/dL (0.70-1.30); EST Glomerular Filtration Rate 56 mL/min (>60); Est Glom Filt Rate - Afr Amer 67 mL/min (>60); Estimated Creatinine Clearance 37.82 ml/min; Glucose 192 mg/dL (74-106); Potassium 4.7 mmol/L (3.5-5.1); Sodium Level 147 mmol/L (136-145); Troponin-I HS 588 pg/mL (3.0-78.0)
[2022-03-12] MEDS: Furosemide 40 MG/4 ML Vial IV ×3 (01:43→17:49)
[2022-03-12 01:45] LABS: BNP,B-Type NATRIURETIC PEPTIDE 285.7 pg/mL (0-100)
--- NOTE | 2022-03-12 02:43 | CPS ---
Aerosol done by nurse Terrance Wolfe. RT unable to complete due to emergency.
--- NOTE | 2022-03-12 02:59 | PCM.HP.STD ---
[facility] - General General Date of Admission: 03/12/22 Date of Service: 03/12/22 Chief Complaint: Shortness of breath HPI Narrative BEULAH BRIGHT, is a 81 M with a significant history of COPD; diabetes mellitus; hyperlipidemia; hypertension; hypothyroidism; obesity; polyarthralgia and gout who presents to the emergency department with 2-day history of progressively worsening shortness of breath. His shortness of breath increases markedly with exertion. Associated with his symptoms is proximal nocturnal dyspnea. He reports cough. He denies orthopnea. Baseline patient uses 2 L nasal cannula of oxygen. At the emergency department his oxygen saturation was increased to 4 L initially and later weaned back to 2 L. Patient is on home torsemide 5 mg daily. He report that about a year ago he was on 10 mg but it had to be cut back to 5 mg. At the emergency department he was given 40 mg of Lasix with good diuresis. He reports bilateral leg edema that has not changed. [facility] Medical History Chronic respiratory failure with hypoxia COPD (chronic obstructive pulmonary disease) COPD (chronic obstructive pulmonary disease) Debility Diabetes mellitus, type 2 Former tobacco use HLD (hyperlipidemia) HTN (hypertension) Hypothyroidism Obesity Polyarthralgia Home Medications atorvastatin 80 mg tablet 80 mg PO DAILY CHOLESTEROL 05/02/21 [History Last Taken 12/13/21] cholecalciferol (vitamin D3) 25 mcg (1,000 unit) capsule 25 mcg PO DAILY vitamin 05/02/21 [History Last Taken 12/13/21] glimepiride 4 mg tablet 4 mg PO DAILY diabetes 05/02/21 [History Last Taken 12/12/21] ipratropium 0.5 mg-albuterol 3 mg (2.5 mg base)/3 mL nebulization soln 3 ml inhalation 4X/DAY PRN sob 05/02/21 [History Last Taken 3 Days Ago ~12/10/21] liothyronine 25 mcg tablet 25 mcg PO DAILY THYROID 05/02/21 [History Last Taken 12/13/21] metformin 1,000 mg tablet 500 mg PO BID DM 05/02/21 [History Last Taken 12/13/21] omega-3 fatty acids-vitamin E 1,000 mg capsule 2 cap PO BID SUPPLEMENT 05/02/21 [History Last Taken 12/13/21] tiotropium bromide 18 mcg capsule with inhalation device (Spiriva with HandiHaler) 18 mcg inhalation DAILY SOB 05/02/21 [History Last Taken 12/13/21] torsemide 10 mg tablet 5 mg PO DAILY Diuretic 12/08/21 [History Last Taken 12/12/21] vitamins A,C,R-ydax-kvgqsd 14,320 unit-226 mg-200 unit capsule (PreserVision AREDS) 1 cap PO BID vitamin 12/13/21 [History Last Taken 12/13/21] oxycodone 5 mg tablet 5 mg PO Q4H PRN PRN Pain Score 4-10 3 days #18 tabs 12/16/21 [Rx Last Taken Unknown] lisinopril 20 mg tablet (Zestril) 20 mg PO DAILY blood pressure 03/12/22 [History Last Taken Unknown] Allergy/AdvReac Type Severity Reaction Status Date / Time codeine AdvReac Upset Verified 12/08/21 08:38 Stomach Family History Mother CVA (cerebral vascular accident) Heart disease Myocardial infarction Hx of CABG Hypertension Father CVA (cerebral vascular accident) Heart disease Surgical History S/P cataract extraction Social History household members: none housing: house Smoking Status: Former smoker how long ago did patient quit smoking: Quit 2010, prior 1 ppd since teen. alcohol intake: former year quit: 2010 substance use type: does not use ROS ROS Narrative Pertinent positives and pertinent negatives as noted in HPI. All other systems were reviewed and are negative Vital Signs Vital Signs Vital Signs: 03/11/22 23:39 03/12/22 00:44 03/11/22 23:49 Temperature 97.9 F 98.0 F Temperature Source Oral Oral Pulse Rate 112 H 96 Respiratory Rate 22 H Respiratory Effort Labored Respiratory Depth Shallow Blood Pressure 160/107 H 169/69 H Blood Pressure Mean 124 102 Pulse Ox 97 98 Oxygen Delivery Method Nasal Cannula Nasal Cannula Nasal Cannula Oxygen Flow Rate (L/min) 4 4 4 03/12/22 01:00 03/12/22 01:39 Temperature 98.0 F Temperature Source Oral Pulse Rate 100 93 Respiratory Rate 22 H 20 H Respiratory Effort Respiratory Depth Blood Pressure 159/65 H 162/5 H Blood Pressure Mean 96 57 Pulse Ox 98 97 Oxygen Delivery Method Nasal Cannula Nasal Cannula Oxygen Flow Rate (L/min) 4 2 Weight Weight: 95 kg Body Mass Index (BMI) 34.8 Physical Exam Narrative Physical exam: General: Well-nourished, well-developed. Head: Normocephalic, atraumatic, no tenderness Eyes: Vision is grossly intact. EOMI ENT, no trauma, moist mucous membranes, no rhinorrhea Neck: Nontender, No thyromegaly. CVS: Regular rate and rhythm. S1-S2 present. No murmur, gallop or rub. Respiratory : Wheezes; chest wall nontender, no wheezing Abdomen: Soft, nontender, nondistended, normal bowel sounds, no masses : Deferred Back: Nontender, no CVA tenderness, no midline spinal tenderness, deformities, step-offs Extremities: Bilateral 2+ feet edema. Nontender full range of motion, no trauma Skin: Normal color, no trauma, abrasions Neuro: Alert, oriented, cranial nerves II through XII grossly intact. Psychiatry: Normal mood. Normal affect. Not depressed. Not anxious. Results Lab / Micro Data Result Diagrams: 03/12/22 00:00 03/12/22 00:00 Labs: Laboratory Results - last 24 hr 03/12/22 00:00: WBC 6.1, RBC 3.58 L, Hgb 10.9 L, Hct 35.0 L, MCV 97.8 H, MCH 30.4, MCHC 31.1 L, RDW Std Deviation 53.0 H, RDW Coeff of John 14.6, Plt Count 111 L, MPV 11.5, Immature Gran % (Auto) 0.300, Neut % (Auto) 64.1, Lymph % (Auto) 23.2, [place] % (Auto) 7.2, Eos % (Auto) 4.4, Baso % (Auto) 0.8, Absolute Neuts (auto) 3.9, Absolute Lymphs (auto) 1.41, Nucleated RBC % 0 03/12/22 00:00: Sodium 147 H, Potassium 4.7, Chloride 113 H, Carbon Dioxide 31.0, Anion Gap 3 L, BUN 32 H, Creatinine 1.31 H, Estim Creat Clear Calc 37.82, Est GFR (MDRD) Af Amer 67, Est GFR (MDRD) Non-Af 56 L, BUN/Creatinine Ratio 24.4 H, Glucose 192 H, Calcium 8.7, Troponin I High Sens 588 H* 03/12/22 00:00: B-Natriuretic Peptide 285.7 H Micro: Microbiology 03/12/22 00:00 Nasal Secretion SARS-CoV-2 & FLU Antigen (Rapid) - Final Rhythm Strip Rhythm Strip: Sinus Rhythm Rate: 95 Ectopy: None Radiology Impression Chest X-Ray 03/12/22 00:50 IMPRESSION: Findings most consistent with mild congestive heart failure with small pleural effusions. Electronically Signed: Jannette Moya MD at 1:32 EST , Assessment & Plan Assessment/Plan (1) Acute CHF (congestive heart failure): (2) Elevated troponin: (3) Bilateral pleural effusion: PLAN: Plan Acute on chronic heart failure with preserved ejection fraction with hypoxia and bilateral pleural effusion Place on monitored bed at the progressive care unit Impression of chest x-ray by radiologist: Findings most consistent with mild congestive heart failure with small pleural effusions. Chest x-ray was visualized and independently interpreted. I agree with radiologist interpretation Weight on admission to the floor; and then daily Strict I&O's Emergency department labs reviewed BNP 285.7 Hold home torsemide. Lasix 40 mg IV push twice daily Echocardiogram on 05/02/2021 showed EF of 65% with indeterminate diastolic function. Mild diffuse aortic valve thickening. Mild diffuse aortic valve calcification. Mild to moderate aortic stenosis. Transthoracic echocardiogram to evaluate left ventricular wall motion and systolic function. Other valves could not be visualized properly. Continue Carrillo wrap to bilateral legs Fluid restriction of 1500 mls daily 2 g cardiac diet Hypernatremia and hyperchloremia Serum on presentation was 147. Sodium presentation was 113. Like secondary to fluid overload. Diuresis. Trend BMP Elevated troponin High sensitive troponin of 588. Denies chest pain. EKG with sinus rhythm without ST or T abnormalities. Likely type II CT secondary demand ischemia. Aspirin and Lovenox ordered. Trend. Diabetes mellitus Patient with hyperglycemia on presentation Home glimepiride held Monitor Accu-Cheks Correction scale insulin ordered. Hypertension Blood pressure is not within goal Home blood pressure medication continued. As needed hydralazine ordered. Trend blood pressure and adjust blood pressure medications. DVT Prophylaxis: Not indicated as patient is not on therapeutic dose of Lovenox for elevated troponin. Charges/Coding Visit Charges Inpatient E&M: 83715 Init Hosp L3
--- NOTE | 2022-03-12 03:12 | ECHOD_ITS ---
Reason For Study: CHF Procedure This was a 2D Doppler, Color Flow transthoracic echocardiogram. The study was technically difficult. Exam performed portable in patient room. Left Ventricle Normal LV size. Mild concentric left ventricular hypertrophy. Based upon the 2D echocardiographic images obtained appears to be grossly normal left ventricular size, wall motion, and systolic function. The estimated ejection fraction is 65 %. Diastolic function is indeterminate. Right Ventricle Normal RV size. Normal systolic function. Atria The left atrium is mildly enlarged. Normal right atrium. No doppler evidence for ASD. Mitral Valve There is no mitral annular calcification. Mild diffuse mitral valve thickening. Trivial mitral valve insufficiency. Tricuspid Valve Normal tricuspid valve. Trivial tricuspid valve insufficiency. Unable to estimate RV systolic pressure/pulmonary artery pressure due to technically difficult study. Aortic Valve Trisinus/trileaflet aortic valve. Mild diffuse aortic valve thickening. Mild diffuse aortic valve calcification. Mild aortic stenosis. Mild (1+) aortic valve insufficiency. Pulmonic Valve The pulmonic valve is not well visualized. Great Vessels Normal sized aortic root. Pericardium/Pleural Trivial pericardial effusion. There are no echocardiographic indications of cardiac tamponade. MMode/2D Measurements & Calculations LVIDd: 4.3 cm IVSd: 1.3 cm LVOT diam: 2.1 cm LVIDs: 2.8 cm LVPWd: 1.3 cm LVOT area: 3.4 cm2 RVDd: 3.4 cm FS: 35.8 % Ao root diam: 2.8 cm LAV(MOD-bp): 63.9 ml LVAd ap4: 28.8 cm2 LAV(MOD-bp) Indexed: 33.0 ml/m2 LVLd ap4: 8.4 cm LAV(MOD-sp2): 51.5 ml EDV(MOD-sp4): 80.3 ml LAV(MOD-sp4): 59.4 ml EDV(sp4-el): 83.6 ml LVAs ap4: 15.6 cm2 LVLs ap4: 7.1 cm ESV(MOD-sp4): 29.0 ml ESV(sp4-el): 29.3 ml EF(MOD-sp4): 63.9 % EF(sp4-el): 65.0 % SV(MOD-sp4): 51.3 ml SV(sp4-el): 54.3 ml LA A4 area: 22.1 cm2 LA dimension(2D): 3.6 cm RA A4 area: 13.4 cm2 Time Measurements MV dec time: 0.34 sec Doppler Measurements & Calculations MV E max mando: 68.0 cm/sec Lat Peak E' Mando: 6.4 cm/sec Med Peak E' Mando: 4.8 cm/sec MV A max mando: 116.8 cm/sec E/E' lat: 10.6 E/E' med: 14.1 MV E/A: 0.58 Ao V2 max: 290.4 cm/sec AI max mando: 341.3 cm/sec LV V1 max: 112.2 cm/sec Ao max P.8 mmHg AI max P.6 mmHg LV V1 max P.0 mmHg Ao V2 mean: 211.2 cm/sec LV V1 mean P.9 mmHg Ao mean P.6 mmHg AI dec slope: 244.8 cm/sec2 LV V1 mean: 81.2 cm/sec Ao V2 VTI: 63.6 cm AI P1/2t: 408.3 msec LV V1 VTI: 26.3 cm AV (velocity ratio): 0.41 ALEXY(I,D): 1.4 cm2 ALEXY(V,D): 1.3 cm2 SV(LVOT): 88.3 ml PA V2 max: 148.4 cm/sec PA V2 mean: 99.5 cm/sec PA V2 VTI: 28.8 cm ECHO/Echo Complete Interpretation Summary The study was technically difficult. Based upon the 2D echocardiographic images obtained appears to be grossly juan daniel l left ventricular size, wall motion, and systolic function. The estimated ejection fraction is 65 %. Mild concentric left ventricular hypertrophy. The left atrium is mildly enlarged. Mild diffuse mitral valve thickening. Trivial mitral valve insufficiency. Trivial tricuspid valve insufficiency. Mild aortic stenosis. Mild (1+) aortic valve insufficiency. Trivial pericardial effusion. There are no echocardiographic indications of cardiac tamponade. Unable to estimate RV systolic pressure/pulmonary artery pressure due to techni jada difficult study. Diastolic function is indeterminate. Ordering Physician: Andre Rodriguez Referring Physician: Adrianna Nichols Performed By: Radha Galo, CAMERONCS, RVT
[2022-03-12] MEDS: Aspirin 325 MG Tablet PO (05:12)
[2022-03-12] MEDS: Enoxaparin 100 MG/ML Syringe 95 MG SC ×3 (05:12→20:34)
[2022-03-12 05:22] LABS: Troponin-I HS 678 pg/mL (3.0-78.0)
[2022-03-12 07:01] LABS: Bedside Glucose 117 mg/dL (74-106)
[2022-03-12 08:10] LABS: Troponin-I HS 718 pg/mL (3.0-78.0)
[2022-03-12 10:17] LABS: Troponin-I HS 640 pg/mL (3.0-78.0)
[2022-03-12] MEDS: hydrALAZINE 20 MG/ML Vial 5 MG IV (11:00)
--- NOTE | 2022-03-12 11:21 | PCM.CONS.C ---
Assessment & Plan Assessment/Plan (1) Non-ST elevation (NSTEMI) myocardial infarction: PLAN: The patient demonstrates evidence of a non-ST segment elevation [place]. It is unclear at this time whether this may be a type I event versus a type II event brought out by his underlying COPD. At the present time he will have continued follow-up. This will include continue cardiac rhythm monitoring. And will conclude continued ECG follow-up. A request has been made for follow-up echocardiogram to reassess his ventricular wall motion and systolic function. As his clinical course progresses he may need to be considered for further noninvasive and/or invasive cardiovascular studies to further define his cardiovascular anatomy and physiology and assist in his ongoing evaluation and care. This could include studies such as diagnostic cardiac catheterization. In the interim is reasonable to continue medical therapy. This would include agent such as aspirin 81 mg a day, nitrates as needed, consideration for the addition of beta-blockers such as carvedilol/Coreg starting at a low dose of 3.125 mg p.o. twice daily, lipid-lowering agents such as atorvastatin, and antiplatelet and anticoagulant agents as deemed appropriate. (2) Acute CHF (congestive heart failure): PLAN: The patient does have what appears to be acute CHF. Its unclear at this time whether this remains diastolic based upon his previous echocardiographic studies or whether his LV systolic function has declined and now he has a component of systolic dysfunction. At the present time he will continue medical therapy. This may include agent such as nitrates, beta-blockers as described above, diuretics as he is currently on with the potential addition of other diuretic such as spironolactone/Aldactone, and afterload reducing agents in the form of RICH inhibitor's, ARB's, or agent such as Entresto. You also have reassessment of his left ventricular wall motion and systolic function with a transthoracic echocardiogram. (3) Bilateral pleural effusion: PLAN: The patient does have bilateral pleural effusions. He will continue diuretic therapy at this time. (4) HLD (hyperlipidemia): PLAN: The patient has a history of hyperlipidemia. He should continue lipid-lowering therapy with his atorvastatin previously noted at 80 mg p.o. daily. (5) HTN (hypertension): PLAN: The patient's blood pressure will need to be monitored. His medications will need to be adjusted accordingly. (6) COPD (chronic obstructive pulmonary disease): PLAN: The patient has underlying COPD. He will continue evaluation care by internal medicine and if need be pulmonology/critical care medicine. (7) Cardiac murmur: PLAN: The patient does appear to have a cardiac murmur. He will be reassessed with respect any change in his left ventricular wall motion and systolic function and his valvular anatomy and physiology with an upcoming echocardiographic study Addt'l Comments The patient's case was discussed and reviewed with the patient as well as with Dr. Leija of the [facility] staff. This note was generated using a voice recognition system and there may be incorrect words, spelling or punctuation that were not noted when reviewing the office note prior to saving. Time spent in the patient's overall evaluation and care: 60 minutes HPI Consult Data Date of Consult: 03/12/22 HPI Narrative HPI Narrative: BEULAH BRIGHT, is a 81 year old white male who presents for cardiovascular consultation based upon concerns of abnormal cardiac enzymes compatible with a non-ST segment elevation ME, concerns of CHF , superimposed upon a history of hyperlipidemia, hypertension, diabetes mellitus, hypothyroidism, and COPD. The patient states that he has been progressively getting more short of breath and dyspneic both at rest and with exertion. He does not recall having any significant associated chest discomfort/pain. He has been more short of breath in the supine position. He states he has not had any significant edema of the lower extremities. He does not recall having any palpitations or rapid heart rate sensation. There is been no near-syncope or syncope. He states he has been on diuretic therapy in the past. He notes over time his diuretic dose was decreased. He also states he has been treated with corticosteroids in the past for his underlying pulmonary disease process as well as other noncardiac conditions. He notes since being on the corticosteroids he feels that his symptoms have worsened with respect to his breathing. He presented to the hospital for further evaluation and care. He was found on laboratory studies to have elevated high-sensitivity troponin I levels which appear to have peaked and are now declining. He had an ECG that appeared to demonstrate sinus rhythm with no acute ECG changes. He had a chest x-ray performed. Based upon preliminary review of the chest x-ray images it appears he has demonstrated evidence of increased pulmonary vascularity and bilateral pleural effusions. The radiology report also comments on atherosclerotic changes of the thoracic aorta. He did have a transthoracic echocardiogram performed at [facility] on 05-02-2021. The results are noted below. He has been started on aspirin therapy as well as diuretic therapy with furosemide at 40 mg IV twice daily. He is also been placed on subcutaneous Lovenox on a twice daily schedule. [facility] Medical History (Updated 03/12/22 @ 11:[address] Emeka Blunt MD) Chronic respiratory failure with hypoxia COPD (chronic obstructive pulmonary disease) COPD (chronic obstructive pulmonary disease) Debility Diabetes mellitus, type 2 Former tobacco use HLD (hyperlipidemia) HTN (hypertension) Hypothyroidism Obesity Polyarthralgia Home Medications atorvastatin 80 mg tablet 80 mg PO DAILY CHOLESTEROL 05/02/21 [History Last Taken 03/11/22] cholecalciferol (vitamin D3) 25 mcg (1,000 unit) capsule 25 mcg PO DAILY vitamin 05/02/21 [History Last Taken 03/11/22] glimepiride 4 mg tablet 4 mg PO DAILY diabetes 05/02/21 [History Last Taken 03/11/22] ipratropium 0.5 mg-albuterol 3 mg (2.5 mg base)/3 mL nebulization soln 3 ml inhalation 4X/DAY PRN sob 05/02/21 [History Last Taken 3 Days Ago ~12/10/21] liothyronine 25 mcg tablet 25 mcg PO DAILY THYROID 05/02/21 [History Last Taken 12/13/21] metformin 1,000 mg tablet 500 mg PO BID DM 05/02/21 [History Last Taken 03/11/22] omega-3 fatty acids-vitamin E 1,000 mg capsule 2 cap PO BID SUPPLEMENT 05/02/21 [History Last Taken 12/13/21] tiotropium bromide 18 mcg capsule with inhalation device (Spiriva with HandiHaler) 18 mcg inhalation DAILY SOB 05/02/21 [History Last Taken 03/11/22] torsemide 10 mg tablet 5 mg PO DAILY Diuretic 12/08/21 [History Last Taken 03/11/22] vitamins A,C,Y-tacb-mnbtst 14,320 unit-226 mg-200 unit capsule (PreserVision AREDS) 1 cap PO BID vitamin 12/13/21 [History Last Taken 12/13/21] lisinopril 20 mg tablet (Zestril) 20 mg PO DAILY blood pressure 03/12/22 [History Last Taken Unknown] Allergy/AdvReac Type Severity Reaction Status Date / Time codeine AdvReac Upset Verified 12/08/21 08:38 Stomach Family History Mother CVA (cerebral vascular accident) Heart disease Myocardial infarction Hx of CABG Hypertension Father CVA (cerebral vascular accident) Heart disease Surgical History S/P cataract extraction Social History household members: none housing: house Smoking Status: Former smoker how long ago did patient quit smoking: Quit 2011, prior 1 ppd since teen. alcohol intake: former year quit: 2010 substance use type: does not use ROS Constitutional Constitutional: Reports as per HPI Eyes Eyes: Reports as per HPI ENT HEENT: Reports as per HPI Cardiovascular Cardiovascular: Reports dyspnea, dyspnea at rest and dyspnea on exertion Respiratory/Chest Respiratory/Chest: Reports dyspnea and dyspnea on exertion Gastrointestinal Gastrointestinal: Reports as per HPI Genitourinary Genitourinary: Reports as per HPI Musculoskeletal Musculoskeletal: Reports as per HPI Integumentary Integumentary: Reports as per HPI Neurologic Neurologic: Reports as per HPI Physical Exam Const alert, oriented x3 and no apparent distress Orientation / Consciousness: awake HEENT normocephalic, head/scalp atraumatic and hearing grossly normal bilaterally Eyes PERRL, EOMs intact bilaterally, conjunctivae normal and no scleral icterus Neck full ROM, supple and no JVD Carotids: normal carotid upstroke Resp Auscultation: diminished lung sounds bilateral lower Cardio regular rate, regular rhythm, S1 normal heart sound and S2 normal heart sound Heart Sounds: murmur systolic II/ harsh mid left sternal border, LVOT and sternal notch to carotid arteries GI normal to inspection, nondistended, normoactive bowel sounds Extremity no pedal edema Skin no rashes or lesions noted Psych mental status grossly normal Risk Stratification Risk Stratification Applicable: Yes Age >/= 65: Yes >/= 3 CAD Risk Factors (HTN, HLD, DM, family hx of CAD, or current smoker): Yes Aspirin Use in the Past 7 Days: No Severe Angina (>/= episodes in 24 hours): No EKG ST Changes >/= 0.5mm: No Positive Cardiac Marker: Yes MARGARITO Risk Stratification Score: 3 MARGARITO % Risk: 13% Risk Procedure Criteria Type of Procedure Procedure Type: Elective Elective Risks - COVID COVID Risk Discussion: The surgeon/proceduralist and patient have discussed in detail the risk of exposure to and/or potential harm posed by the COVID-19 virus with having a surgery/procedure at this time versus the risk of delaying the surgery/procedure. It is not possible to know either the risk of delaying the surgery or procedure or chance of getting an infection with perfect accuracy, but a joint decision was made between the patient and the surgeon/proceduralist to proceed at this time with the scheduled surgery/procedure as indicated on the consent form. Objective Data Vital Signs: Vital Signs Temp Pulse Resp BP Pulse Ox O2 Del Method O2 Flow Rate 98 F 96 16 162/68 H 94 Nasal Cannula 2 03/12/22 03:47 03/12/22 11:00 03/12/22 03:47 03/12/22 11:00 03/12/22 08:43 03/12/22 08:43 03/12/22 10:21 Oxygen Flow Rate (L/min) 2 Oxygen Delivery Method Nasal Cannula Weight: 440 lb 11.265 oz Body Mass Index (BMI) 73.3 Intake & Output: Intake and Output for Last 24 Hours 03/10/22 03/11/22 03/12/22 23:59 23:59 23:59 Output Total 350 / 350 Balance -350 / -350 Lab / Micro Data Result Diagrams: 03/12/22 00:00 03/12/22 00:00 Labs: Laboratory Results - last 24 hr 03/12/22 00:00: WBC 6.1, RBC 3.58 L, Hgb 10.9 L, Hct 35.0 L, MCV 97.8 H, MCH 30.4, MCHC 31.1 L, RDW Std Deviation 53.0 H, RDW Coeff of John 14.6, Plt Count 111 L, MPV 11.5, Immature Gran % (Auto) 0.300, Neut % (Auto) 64.1, Lymph % (Auto) 23.2, [place] % (Auto) 7.2, Eos % (Auto) 4.4, Baso % (Auto) 0.8, Absolute Neuts (auto) 3.9, Absolute Lymphs (auto) 1.41, Nucleated RBC % 0 03/12/22 00:00: Sodium 147 H, Potassium 4.7, Chloride 113 H, Carbon Dioxide 31.0, Anion Gap 3 L, BUN 32 H, Creatinine 1.31 H, Estim Creat Clear Calc 37.82, Est GFR (MDRD) Af Amer 67, Est GFR (MDRD) Non-Af 56 L, BUN/Creatinine Ratio 24.4 H, Glucose 192 H, Calcium 8.7, Troponin I High Sens 588 H* 03/12/22 00:00: B-Natriuretic Peptide 285.7 H 03/12/22 04:26: Troponin I High Sens 678 H* 03/12/22 06:23: Troponin I High Sens 718 H* 03/12/22 06:43: POC Glucose 117 H 03/12/22 09:38: Troponin I High Sens 640 H* Micro: Microbiology 03/12/22 00:00 Nasal Secretion SARS-CoV-2 & FLU Antigen (Rapid) - Final Rhythm Strip Rhythm Strip: Sinus Rhythm Rate: 95 Ectopy: None Cardiology Labs/Tests 03/12/22 00:00: WBC 6.1, RBC 3.58 L, Hgb 10.9 L, Hct 35.0 L, MCV 97.8 H, MCH 30.4, MCHC 31.1 L, Plt Count 111 L, MPV 11.5, Immature Gran % (Auto) 0.300, Neut % (Auto) 64.1, Lymph % (Auto) 23.2, [place] % (Auto) 7.2, Eos % (Auto) 4.4, Baso % (Auto) 0.8, Absolute Neuts (auto) 3.9, Nucleated RBC % 0 03/12/22 00:00: Sodium 147 H, Potassium 4.7, Chloride 113 H, Carbon Dioxide 31.0, Anion Gap 3 L, BUN 32 H, Creatinine 1.31 H, Est GFR (MDRD) Af Amer 67, Est GFR (MDRD) Non-Af 56 L, BUN/Creatinine Ratio 24.4 H, Glucose 192 H, Calcium 8.7 03/12/22 00:00: B-Natriuretic Peptide 285.7 H Rhythm: Sinus rhythm EKG: As noted above ECHO: 05-02-2021 Interpretation Summary The study was technically difficult. Contrast injection was performed. ? Based upon the 2D echocardiographic and contrast enhanced images obtained there appears to be grossly normal left ventricular size, wall motion, and systolic function. The estimated ejection fraction is 65 %. Trivial mitral valve insufficiency. Mild to moderate aortic stenosis. Diastolic function is indeterminate. ? Radiography Diagnostic Testing: Radiology Impression Chest X-Ray 03/12/22 00:50 IMPRESSION: Findings most consistent with mild congestive heart failure with small pleural effusions. Electronically Signed: Jannette Moya MD at 1:32 EST , Cardiology Labs/Tests Cardiology Labs/Tests: 03/12/22 00:00: WBC 6.1, RBC 3.58 L, Hgb 10.9 L, Hct 35.0 L, MCV 97.8 H, MCH 30.4, MCHC 31.1 L, Plt Count 111 L, MPV 11.5, Immature Gran % (Auto) 0.300, Neut % (Auto) 64.1, Lymph % (Auto) 23.2, [place] % (Auto) 7.2, Eos % (Auto) 4.4, Baso % (Auto) 0.8, Absolute Neuts (auto) 3.9, Nucleated RBC % 0 03/12/22 00:00: Sodium 147 H, Potassium 4.7, Chloride 113 H, Carbon Dioxide 31.0, Anion Gap 3 L, BUN 32 H, Creatinine 1.31 H, Est GFR (MDRD) Af Amer 67, Est GFR (MDRD) Non-Af 56 L, BUN/Creatinine Ratio 24.4 H, Glucose 192 H, Calcium 8.7 03/12/22 00:00: B-Natriuretic Peptide 285.7 H Cardiology Impression Chest X-Ray 03/12/22 00:50 IMPRESSION: Findings most consistent with mild congestive heart failure with small pleural effusions. Electronically Signed: Jannette Moya MD at 1:32 EST , Rhythm: EKG: ECHO: Stress Test: Cardiac Cath: PCI: CT Surgery: Holter monitor: EPS: PPM: CXR: Chest CT Scan:
[2022-03-12 12:10] LABS: Bedside Glucose 180 mg/dL (74-106)
[2022-03-12] MEDS: Lisinopril 10 MG Tablet PO ×2 (14:24→20:34)
[2022-03-12] MEDS: Carvedilol 3.125 MG TABLET PO ×2 (14:24→20:34)
[2022-03-12] MEDS: Insulin Lispro 100 UNIT/ML INSULN.PEN SC ×2 (14:24→20:34)
--- NOTE | 2022-03-12 15:47 | PCM.HOSP.N ---
Hospitalist Note Patient was seen and examined today, he is going to be seen by cardiology, he still remains on nasal cannula oxygen at this time. Patient's cardiac enzymes are elevated, he may need to undergo cardiac catheterization. For now, his medications will be continued at the direction of cardiology, he will have an echocardiogram performed tomorrow.
[2022-03-12] MEDS: 0.9% Saline Lock 10 ML Syringe IV (17:49)
[2022-03-12 18:15] LABS: Bedside Glucose 137 mg/dL (74-106)
[2022-03-12] MEDS: Acetaminophen 325 MG Tablet 650 MG PO (20:34)
[2022-03-12] MEDS: Atorvastatin Calcium 80 MG Tablet PO (20:34)
[2022-03-12 20:50] LABS: Bedside Glucose 178 mg/dL (74-106)
[2022-03-13] VITALS (11 sets, daily range): BP systolic 133–162; BP diastolic 51–75; PULSE 75–95; RESP 18–22; TEMP 36.6–36.9; O2SAT 96–98
--- NOTE | 2022-03-13 05:55 | EKG12_ITS ---
Test Reason : AM EKG Blood Pressure : / mmHG Vent. Rate : 069 BPM Atrial Rate : 069 BPM P-R Int : 194 ms QRS Dur : 080 ms QT Int : 390 ms P-R-T Axes : 036 -14 013 degrees QTc Int : 417 ms Normal sinus rhythm Nonspecific ST and T wave abnormality Abnormal ECG Confirmed by RADHA CARRILLO, YURIDIA ([id number]), news video editor ZACKARY MARTINEZ ([id number]) on 03/15/2022 10:10:22 AM Referred By: ANDREI Confirmed By:YURIDIA GARCIA MD
[2022-03-13 07:11] LABS: Bedside Glucose 120 mg/dL (74-106)
[2022-03-13 07:31] LABS: Absolute Lymphocyte Count 1.94 X10^3/uL (0.83-4.51); Absolute Neutrophil Count 4.5 X10^3/uL (2.0-7.7); Basophil# 0.04 X10^3/uL; Basophil% 0.5 % (0-1); Eosinophil# 0.39 X10^3/uL; Eosinophils% 5.2 % (0-5); Hematocrit 36.2 % (40-54); Hemoglobin 11.3 g/dL (13.0-16.5); Lymphocyte # 1.94 X10^3/ul (0.83-4.51); Lymphocyte % 25.8 % (19-41); Mean Corp Hgb Conc 31.2 g/dL (32-36); Mean Corpuscular Hgb 29.8 pg (27.0-32.0); Mean Corpuscular Volume 95.5 fL (80-94); Mean Platelet Vol. 12.2 fl (6.2-12.0); Monocyte# 0.68 X10^3/uL; Monocyte% 9.1 % (0-10); NRBC Flagged by Analyzer 0 % (0-5); Neutrophil # 4.45 X10^3/uL (2.7-7.7); Neutrophil % 59.3 % (47-70); Platelet Count 104 K/mm3 (150-450); RBC Distribution Width CV 14.3 % (11.6-14.6); RBC Distribution Width SD 49.6 fl (35.1-43.9); Red Blood Count 3.79 M/mm3 (4.6-6.2); White Blood Count 7.5 K/mm3 (4.4-11.0)
[2022-03-13 07:55] LABS: Anion Gap 3 (5-15); BUN 42 mg/dL (7-18); BUN/Creat Ratio 29.6 RATIO (10-20); Calcium,Total 9.7 mg/dL (8.5-10.1); Chloride 104 mmol/L (98-107); Creatinine, Serum 1.42 mg/dL (0.70-1.30); EST Glomerular Filtration Rate 51 mL/min (>60); Est Glom Filt Rate - Afr Amer 61 mL/min (>60); Estimated Creatinine Clearance 34.89 ml/min; Glucose 126 mg/dL (74-106); Potassium 4.5 mmol/L (3.5-5.1); Sodium Level 141 mmol/L (136-145)
[2022-03-13] MEDS: Aspirin 81 MG TAB.CHEW PO (08:13)
[2022-03-13] MEDS: Lisinopril 10 MG Tablet PO ×3 (08:27→19:54)
[2022-03-13] MEDS: Carvedilol 3.125 MG TABLET PO ×2 (08:27→19:54)
[2022-03-13] MEDS: Furosemide 40 MG/4 ML Vial IV ×2 (08:29→17:05)
[2022-03-13] MEDS: Enoxaparin 100 MG/ML Syringe 95 MG SC ×2 (08:29→19:54)
--- NOTE | 2022-03-13 10:55 | PN.CARD_ITS ---
Subjective Subjective The patient states he did not sleep in his bed last night. He was up in his chair. He denies any chest discomfort. He believes his breathing has improved. Objective Data Vital Signs: Vital Signs Temp Pulse Resp BP Pulse Ox O2 Del Method O2 Flow Rate 97.8 F 86 20 H 133/51 H 98 Nasal Cannula 2 03/13/22 04:20 03/13/22 07:02 03/13/22 04:20 03/13/22 04:20 03/13/22 04:20 03/13/22 08:23 03/13/22 08:23 Oxygen Flow Rate (L/min) 2 Oxygen Delivery Method Nasal Cannula Weight: 191 lb 2.252 oz Body Mass Index (BMI) 73.3 Intake & Output: Intake and Output for Last 24 Hours 03/11/22 03/12/22 03/13/22 23:59 23:59 23:59 Intake Total 240 / 240 Output Total 2950 / 2950 100 / 100 Balance -2710 / -2710 -100 / -100 Lab / Micro Data Result Diagrams: 03/13/22 06:28 03/13/22 06:28 Labs: Laboratory Results - last 24 hr 03/12/22 11:49: POC Glucose 180 H 03/12/22 17:45: POC Glucose 137 H 03/12/22 20:30: POC Glucose 178 H 03/13/22 06:28: WBC 7.5, RBC 3.79 L, Hgb 11.3 L, Hct 36.2 L, MCV 95.5 H, MCH 29.8, MCHC 31.2 L, RDW Std Deviation 49.6 H, RDW Coeff of John 14.3, Plt Count 104 L, MPV 12.2 H, Immature Gran % (Auto) 0.100, Neut % (Auto) 59.3, Lymph % (Auto) 25.8, [place] % (Auto) 9.1, Eos % (Auto) 5.2 H, Baso % (Auto) 0.5, Absolute Neuts (auto) 4.5, Absolute Lymphs (auto) 1.94, Nucleated RBC % 0 03/13/22 06:28: Sodium 141, Potassium 4.5, Chloride 104, Carbon Dioxide 34.0 H, Anion Gap 3 L, BUN 42 H, Creatinine 1.42 H, Estim Creat Clear Calc 34.89, Est GFR (MDRD) Af Amer 61, Est GFR (MDRD) Non-Af 51 L, BUN/Creatinine Ratio 29.6 H, Glucose 126 H, Calcium 9.7 03/13/22 06:48: POC Glucose 120 H Rhythm Strip Rhythm Strip: Sinus Rhythm Rate: 95 Ectopy: None Cardiology Labs/Tests 03/13/22 06:28: WBC 7.5, RBC 3.79 L, Hgb 11.3 L, Hct 36.2 L, MCV 95.5 H, MCH 29.8, MCHC 31.2 L, Plt Count 104 L, MPV 12.2 H, Immature Gran % (Auto) 0.100, Neut % (Auto) 59.3, Lymph % (Auto) 25.8, [place] % (Auto) 9.1, Eos % (Auto) 5.2 H, Baso % (Auto) 0.5, Absolute Neuts (auto) 4.5, Nucleated RBC % 0 03/13/22 06:28: Sodium 141, Potassium 4.5, Chloride 104, Carbon Dioxide 34.0 H, Anion Gap 3 L, BUN 42 H, Creatinine 1.42 H, Est GFR (MDRD) Af Amer 61, Est GFR (MDRD) Non-Af 51 L, BUN/Creatinine Ratio 29.6 H, Glucose 126 H, Calcium 9.7 Rhythm: Sinus rhythm ECHO: Pending Physical Exam Const alert, oriented x3 and no apparent distress Orientation / Consciousness: awake HEENT normocephalic, head/scalp atraumatic and hearing grossly normal bilaterally Eyes PERRL, EOMs intact bilaterally, conjunctivae normal and no scleral icterus Neck full ROM, supple and no JVD Carotids: normal carotid upstroke Resp Auscultation: diminished lung sounds bilateral (Improved compared to yesterday) lower Cardio regular rate, regular rhythm, S1 normal heart sound and S2 normal heart sound Heart Sounds: murmur systolic II/ harsh mid left sternal border, LVOT and sternal notch to carotid arteries GI normal to inspection, nondistended, normoactive bowel sounds Extremity no pedal edema Extremity Narrative: Wearing bilateral support stockings at this time Skin no rashes or lesions noted Psych mental status grossly normal Assessment & Plan Assessment/Plan (1) Non-ST elevation (NSTEMI) myocardial infarction: PLAN: The patient demonstrates evidence of a non-ST segment elevation [place]. It is unclear at this time whether this may be a type I event versus a type II event brought out by his underlying COPD. At the present time he will have continued follow-up. The patient's troponin I levels have decreased. A request has been made for follow-up echocardiogram to reassess his ventricular wall motion and systolic function. Consideration will be given to further evaluation with a diagnostic cardiac catheterization. The procedure and risk were discussed with the patient. He was agreeable to this approach. The patient will continue medical therapy in the interim. This will include aspirin, nitrates as needed, beta-blockers which she has been placed on with carvedilol 3.125 mg p.o. daily, continuation of diuretic therapy with furosemide IV with adjustment as needed, afterload reducing therapy such as the RICH inhibitor-lisinopril, and lipid-lowering therapy with atorvastatin. (2) Acute CHF (congestive heart failure): PLAN: The patient does have what appears to be acute CHF. Its unclear at this time whether this remains diastolic based upon his previous echocardiographic studies or whether his LV systolic function has declined and now he has a component of systolic dysfunction. A follow-up echocardiogram is pending. He will continue medical management as noted above. (3) Bilateral pleural effusion: PLAN: The patient does have bilateral pleural effusions. He will continue diuretic therapy at this time. (4) HLD (hyperlipidemia): PLAN: The patient has a history of hyperlipidemia. He should continue lipid-lowering therapy with his atorvastatin previously noted at 80 mg p.o. daily. (5) HTN (hypertension): PLAN: The patient's blood pressure will need to be monitored. His medications will need to be adjusted accordingly. (6) COPD (chronic obstructive pulmonary disease): PLAN: The patient has underlying COPD. He will continue evaluation care by internal medicine and if need be pulmonology/critical care medicine. (7) Cardiac murmur: PLAN: The patient does appear to have a cardiac murmur. He will be reassessed with respect any change in his left ventricular wall motion and systolic function and his valvular anatomy and physiology with an upcoming echocardiographic study Addt'l Comments Overall, from a cardiovascular standpoint, the patient does appear to be improv ing symptomatically. He will continue to be monitored. An echocardiogram is pending. He will cont inue medical therapy as described above with dosage adjustment as needed. Based upon his findings with abnormal cardiac enzymes it would be reasonable to consider further evaluation with diagnostic cardiac catheterization. The procedure and risk were discussed with him. He was agreeable to this approach. This will be tentatively scheduled for 03-14-2022 barring a change in the patient's clinical course. Comment: Time spent the patient's evaluation and care: 60 minutes. Procedure Criteria Type of Procedure Procedure Type: Elective Elective Risks - COVID COVID Risk Discussion: The surgeon/proceduralist and patient have discussed in detail the risk of exp osure to and/or potential harm posed by the COVID-19 virus with having a surgery/procedure at this time versus the risk of delaying the surgery/procedure. It is not possible to know either the risk of delaying the surgery or procedure or chance of getting an infection with perfect accuracy, but a joint decision was made between the patient and the surgeon/proceduralist to proceed at this time with the scheduled surgery/procedure as indicated on the consent form.
[2022-03-13] MEDS: Insulin Lispro 100 UNIT/ML INSULN.PEN SC ×3 (11:45→19:59)
[2022-03-13] MEDS: 0.9% Saline Lock 10 ML Syringe IV ×2 (11:47→17:05)
[2022-03-13 12:05] LABS: Bedside Glucose 241 mg/dL (74-106)
[2022-03-13 17:05] LABS: Bedside Glucose 160 mg/dL (74-106)
--- NOTE | 2022-03-13 18:08 | PN.HOSP_ITS ---
Subjective Subjective Patient was seen and examined today, his echocardiogram today revealed an ejection fraction of 65%. Cardiology is planning on doing a cardiac catheterization on the patient tomorrow. Objective Data Objective Data Vital Signs: Vital Signs Temp Pulse Resp BP Pulse Ox O2 Del Method O2 Flow Rate 97.8 F 79 18 149/65 H 97 Nasal Cannula 2 03/13/22 16:00 03/13/22 16:00 03/13/22 16:00 03/13/22 16:00 03/13/22 16:00 03/13/22 16:55 03/13/22 16:55 Oxygen Flow Rate (L/min) 2 Oxygen Delivery Method Nasal Cannula Weight: 86.7 kg Body Mass Index (BMI) 73.3 Intake & Output: Intake and Output for Last 24 Hours 03/11/22 03/12/22 03/13/22 23:59 23:59 23:59 Intake Total 240 / 240 Output Total 2950 / 2950 675 / 675 Balance -2710 / -2710 -675 / -675 Lab / Micro Data Result Diagrams: 03/13/22 06:28 03/13/22 06:28 Labs: Laboratory Results - last 24 hr 03/12/22 17:45: POC Glucose 137 H 03/12/22 20:30: POC Glucose 178 H 03/13/22 06:28: WBC 7.5, RBC 3.79 L, Hgb 11.3 L, Hct 36.2 L, MCV 95.5 H, MCH 29.8, MCHC 31.2 L, RDW Std Deviation 49.6 H, RDW Coeff of John 14.3, Plt Count 104 L, MPV 12.2 H, Immature Gran % (Auto) 0.100, Neut % (Auto) 59.3, Lymph % (Auto) 25.8, [place] % (Auto) 9.1, Eos % (Auto) 5.2 H, Baso % (Auto) 0.5, Absolute Neuts (auto) 4.5, Absolute Lymphs (auto) 1.94, Nucleated RBC % 0 03/13/22 06:28: Sodium 141, Potassium 4.5, Chloride 104, Carbon Dioxide 34.0 H, Anion Gap 3 L, BUN 42 H, Creatinine 1.42 H, Estim Creat Clear Calc 34.89, Est GFR (MDRD) Af Amer 61, Est GFR (MDRD) Non-Af 51 L, BUN/Creatinine Ratio 29.6 H, Glucose 126 H, Calcium 9.7 03/13/22 06:48: POC Glucose 120 H 03/13/22 11:42: POC Glucose 241 H 03/13/22 16:33: POC Glucose 160 H Micro: Microbiology 03/12/22 00:00 Nasal Secretion SARS-CoV-2 & FLU Antigen (Rapid) - Final Radiography Diagnostic Testing: Radiology Impression Echocardiogram 03/12/22 03:12 Interpretation Summary The study was technically difficult. Based upon the 2D echocardiographic images obtained appears to be grossly normal left ventricular size, wall motion, and systolic function. The estimated ejection fraction is 65 %. Mild concentric left ventricular hypertrophy. The left atrium is mildly enlarged. Mild diffuse mitral valve thickening. Trivial mitral valve insufficiency. Trivial tricuspid valve insufficiency. Mild aortic stenosis. Mild (1+) aortic valve insufficiency. Trivial pericardial effusion. There are no echocardiographic indications of cardiac tamponade. Unable to estimate RV systolic pressure/pulmonary artery pressure due to technically difficult study. Diastolic function is indeterminate. Ordering Physician: Andre Rodriguez Referring Physician: Adrianna Nichols Performed By: Radha Galo, LISSA, RVT Rhythm Strip Rhythm Strip: Sinus Rhythm Rate: 95 Ectopy: None Physical Exam Const alert, oriented x3, no apparent distress and healthy appearing General Appearance: cooperative, well kempt and well developed Orientation / Consciousness: awake, oriented to person, oriented to place and oriented to time HEENT normocephalic and moist oral mucous membranes HEENT Narrative: There is a healing wound over the patient's left forehead area which is several centimeters long Eyes PERRL, EOMs intact bilaterally and conjunctivae normal Neck supple, no JVD and thyroid normal General: trachea midline Resp normal respiratory effort, no retractions, no use of accessory muscles and clear to auscultation bilaterally Auscultation: Negative for rales, rhonchi or wheezes Cardio regular rate, regular rhythm, S1 normal heart sound, S2 normal heart sound, no rub and no gallops Cardio Narrative: There is a 2/6 systolic murmur noted at the apex and left sternal border GI normal to inspection, nondistended, normoactive bowel sounds, soft to palpation, non-tender and non-distended Extremity no clubbing, cyanosis or edema Skin no rashes or lesions noted General Skin Exam: no breakdown Neuro oriented x3, CN's II-XII intact bilaterally, no focal motor deficits and no sensory deficits noted Sensorium / Orientation: awake and alert Speech: speech normal Psych affect normal Assessment & Plan Assessment/Plan (1) COPD (chronic obstructive pulmonary disease): PLAN: Plan 1. Acute diastolic congestive heart failure-continue present medications under direction of cardiology #2 [id number] will need a cardiac catheterization tomorrow to rule out coronary artery disease. #3 essential hypertension-patient will remain on his current medications #4 chronic obstructive pulmonary disease-complicates care, management, recovery, and prognosis Total clinical time spent by myself addressing the patient's medical issues, reviewing the data, and collaborating with patient's care team: 25 minutes Charges/Coding Visit Charges Inpatient E&M: [id number] [facility] L1
[2022-03-13] MEDS: Atorvastatin Calcium 80 MG Tablet PO (19:55)
[2022-03-13 20:26] LABS: Bedside Glucose 215 mg/dL (74-106)
[2022-03-14] VITALS (13 sets, daily range): BP systolic 127–147; BP diastolic 49–59; PULSE 75–92; RESP 18–20; TEMP 36.3–36.8; O2SAT 94–98
--- NOTE | 2022-03-14 04:19 | NURSING ---
PT SIGNED CONSENT AND THEN CALLED THIS RN BACK TO HIS ROOM STATING HE CHANGED HIS MIND. 2 RNS WENT INTO HIS ROOM AND DISCUSSED THE PROCEDURE AND THE POSSIBLE OUTCOMES WITH HIM AGAIN. EDUCATED PT ON RISK OF ADDITIONAL MIS AND POSSIBLE . PT STILL STATES HE DOES NOT WANT PROCEDURE.
[2022-03-14 07:00] LABS: Bedside Glucose 145 mg/dL (74-106)
[2022-03-14] MEDS: Albuterol 2.5 MG/3 ML VIAL.NEB. INHALATION ×4 (07:23→21:05)
[2022-03-14] MEDS: Carvedilol 3.125 MG TABLET PO ×2 (07:52→20:25)
[2022-03-14] MEDS: Aspirin 81 MG TAB.CHEW PO (07:52)
[2022-03-14] MEDS: Enoxaparin 100 MG/ML Syringe 95 MG SC ×2 (10:57→20:26)
[2022-03-14] MEDS: Furosemide 40 MG/4 ML Vial IV ×2 (10:57→17:02)
[2022-03-14 11:25] LABS: Bedside Glucose 136 mg/dL (74-106)
--- NOTE | 2022-03-14 12:00 | CASEMGMT ---
RN CM FANS CLERK CM to room to meet with patient for initial transition planning/care coordination assessment. RN NIMCO introduced self and role at [facility].? Pt voices understanding and consents to assessment at this time.? Pt resting in bed in no distress at this time.? Pt is A/O at this time and answers all questions appropriately.?? Care providers, pharmacy, and demographics verified/updated at this time. PCP: Magdalena Herbert Pharmacy: [facility] Insurance: Melissa MAR Prescription Benefit:? Yes Living Will/HPOA:? Thinks he has done both, but not sure. States thinks his PCP has a copy of it and POA would be his dtr, Katie. LNOK: gaby Castaneda. 5 other kids. . Living Arrangements: Lives alone in mobile home w/8 steps to enter. Independent. Uses no AD to ambulate. Transportation: Pt states drives self and states no transportation concerns at this time.? Dtr, Katie, will take him home @ d/c. DME: ?States has the following DME:? BP machine, functioning glucometer w/supplies, nebulizer, pulse ox, O2 from [facility] @ 2l/m @ [facility] and states wears it PRN. Has concentrator and Inogen-states Dtr can bring Inogen in @ d/c. Also has, but does not use: shower chair, transport chair, walker. Pt states no need for further DME at this time.? HHC/SNF: D/C'd from [facility] 12/2021 to [facility] and then d/c'd home from [facility] w/[facility]. He does not remember name of agency. Pt states he was d/c'd from [facility] and denies need for HHC or further therapy at this time. Pt wishes to return home and states has no concerns with going home at time of discharge. CM to follow for any increase in home oxygen needs and any further discharge planning/needs.? Pt voices no further concerns/needs at this time.? Advised pt to ask for CM if any further questions/concerns/needs arise.? Voices understanding. PLAN: ?Home. Follow for any increase in O2 needs. Amanda ALEMAN RN, CM
--- NOTE | 2022-03-14 12:19 | CASEMGMT ---
ALMA CM NOTE: Insurance review for hospitals In-network with [facility] Insurance if transfer is recommended is as follows: [facility], [place], [facility], [facility], [facility], [facility], [place], [place], [facility] ([facility]), and . Amanda MILLIGANN RN CM
--- NOTE | 2022-03-14 14:09 | PCM.PN.CARD ---
Subjective Subjective The patient states that he has no ongoing chest discomfort. He believes his breathing is improving. However, the patient stated he was unable to lie supine this morning. Thus, he did not undergo cardiac catheterization this day Objective Data Vital Signs: Vital Signs Temp Pulse Resp BP Pulse Ox O2 Del Method O2 Flow Rate 97.3 F L 84 18 147/49 H 96 Nasal Cannula 2 03/14/22 10:52 03/14/22 11:27 03/14/22 11:27 03/14/22 10:52 03/14/22 10:52 03/14/22 13:45 03/14/22 13:45 Oxygen Flow Rate (L/min) 2 Oxygen Delivery Method Nasal Cannula Weight: 188 lb 4 oz Body Mass Index (BMI) 73.3 Intake & Output: Intake and Output for Last 24 Hours 03/12/22 03/13/22 03/14/22 23:59 23:59 23:59 Intake Total 240 / 240 120 / 120 Output Total 2950 / 2950 1475 / 1475 700 / 700 Balance -2710 / -2710 -1475 / -1475 -580 / -580 Lab / Micro Data Result Diagrams: 03/13/22 06:28 03/13/22 06:28 Labs: Laboratory Results - last 24 hr 03/13/22 16:33: POC Glucose 160 H 03/13/22 19:58: POC Glucose 215 H 03/14/22 06:33: POC Glucose 145 H 03/14/22 11:05: POC Glucose 136 H Rhythm Strip Rhythm Strip: Sinus Rhythm Rate: 95 Ectopy: None Cardiology Labs/Tests Rhythm: Sinus rhythm Radiography Diagnostic Testing: Radiology Impression Echocardiogram 03/12/22 03:12 Interpretation Summary The study was technically difficult. Based upon the 2D echocardiographic images obtained appears to be grossly normal left ventricular size, wall motion, and systolic function. The estimated ejection fraction is 65 %. Mild concentric left ventricular hypertrophy. The left atrium is mildly enlarged. Mild diffuse mitral valve thickening. Trivial mitral valve insufficiency. Trivial tricuspid valve insufficiency. Mild aortic stenosis. Mild (1+) aortic valve insufficiency. Trivial pericardial effusion. There are no echocardiographic indications of cardiac tamponade. Unable to estimate RV systolic pressure/pulmonary artery pressure due to technically difficult study. Diastolic function is indeterminate. Ordering Physician: Andre Rodriguez Referring Physician: Adrianna Nichols Performed By: Radha Galo, LISSA, RVT Physical Exam Const alert, oriented x3 and no apparent distress Orientation / Consciousness: awake HEENT normocephalic, head/scalp atraumatic and hearing grossly normal bilaterally Eyes PERRL, EOMs intact bilaterally, conjunctivae normal and no scleral icterus Neck full ROM, supple and no JVD Carotids: normal carotid upstroke Resp Auscultation: diminished lung sounds bilateral (Improved compared to admission) lower Cardio regular rate, regular rhythm, S1 normal heart sound and S2 normal heart sound Heart Sounds: murmur systolic II/ harsh mid left sternal border, LVOT and sternal notch to carotid arteries GI normal to inspection, nondistended, normoactive bowel sounds Extremity no pedal edema Extremity Narrative: Wearing bilateral support stockings at this time Skin no rashes or lesions noted Psych mental status grossly normal Assessment & Plan Assessment/Plan (1) Non-ST elevation (NSTEMI) myocardial infarction: PLAN: The patient demonstrates evidence of a non-ST segment elevation FL. It is unclear at this time whether this may be a type I event versus a type II event brought out by his underlying COPD. At the present time he will have continued follow-up. The patient's troponin I levels have decreased. The patient's echocardiogram is as noted. The patient will be tentatively scheduled for diagnostic cardiac catheterization on 03-15-2021 as long as he can lie supine comfortably-from a respiratory standpoint. The patient will continue medical therapy in the interim. This will include aspirin, nitrates as needed, beta-blockers which she has been placed on with carvedilol 3.125 mg p.o. daily, continuation of diuretic therapy with furosemide IV with adjustment as needed, afterload reducing therapy such as the RICH inhibitor-lisinopril, and lipid-lowering therapy with atorvastatin. (2) Acute CHF (congestive heart failure): PLAN: The patient does have what appears to be acute CHF. Its unclear at this time whether this remains diastolic based upon his previous echocardiographic studies or whether his LV systolic function has declined and now he has a component of systolic dysfunction. The echocardiogram is as noted. He will continue medical management as noted above. (3) Bilateral pleural effusion: PLAN: The patient does have bilateral pleural effusions. He will continue diuretic therapy at this time. (4) HLD (hyperlipidemia): PLAN: The patient has a history of hyperlipidemia. He should continue lipid-lowering therapy with his atorvastatin previously noted at 80 mg p.o. daily. (5) HTN (hypertension): PLAN: The patient's blood pressure will need to be monitored. His medications will need to be adjusted accordingly. (6) COPD (chronic obstructive pulmonary disease): PLAN: The patient has underlying COPD. He will continue evaluation care by internal medicine and if need be pulmonology/critical care medicine. (7) Cardiac murmur: PLAN: The patient does appear to have a cardiac murmur. The echocardiogram suggests an element of mild aortic valve stenosis. Patient will continue to be followed. Addt'l Comments The patient's case was discussed and reviewed with the patient. Comment: Time spent in the patient's overall evaluation, care, and documentation: 57 minutes. Procedure Criteria Type of Procedure Procedure Type: Elective Elective Risks - COVID COVID Risk Discussion: The surgeon/proceduralist and patient have discussed in detail the risk of exposure to and/or potential harm posed by the COVID-19 virus with having a surgery/procedure at this time versus the risk of delaying the surgery/procedure. It is not possible to know either the risk of delaying the surgery or procedure or chance of getting an infection with perfect accuracy, but a joint decision was made between the patient and the surgeon/proceduralist to proceed at this time with the scheduled surgery/procedure as indicated on the consent form.
[2022-03-14] MEDS: Insulin Lispro 100 UNIT/ML INSULN.PEN SC ×2 (16:30→20:25)
[2022-03-14 16:50] LABS: Bedside Glucose 212 mg/dL (74-106)
--- NOTE | 2022-03-14 19:33 | PN.HOSP_ITS ---
Subjective Subjective Patient was seen and examined today, he remains on 2 L of oxygen, a heart catheterization was attempted today but the patient could not lie flat due to shortness of breath. Another attempt tomorrow will be made to perform a heart catheterization. Objective Data Objective Data Vital Signs: Vital Signs Temp Pulse Resp BP Pulse Ox O2 Del Method O2 Flow Rate 97.6 F L 80 18 127/55 H 97 Nasal Cannula 2 03/14/22 16:46 03/14/22 16:46 03/14/22 16:46 03/14/22 16:46 03/14/22 16:46 03/14/22 16:46 03/14/22 16:46 Oxygen Flow Rate (L/min) 2 Oxygen Delivery Method Nasal Cannula Weight: 85.389 kg Body Mass Index (BMI) 73.3 Intake & Output: Intake and Output for Last 24 Hours 03/12/22 03/13/22 03/14/22 23:59 23:59 23:59 Intake Total 240 / 240 940 / 940 Output Total 2950 / 2950 1475 / 1475 1800 / 1800 Balance -2710 / -2710 -1475 / -1475 -860 / -860 Lab / Micro Data Result Diagrams: 03/13/22 06:28 03/15/22 05:37 Labs: Laboratory Results - last 24 hr 03/13/22 19:58: POC Glucose 215 H 03/14/22 06:33: POC Glucose 145 H 03/14/22 11:05: POC Glucose 136 H 03/14/22 16:27: POC Glucose 212 H Micro: Microbiology 03/12/22 00:00 Nasal Secretion SARS-CoV-2 & FLU Antigen (Rapid) - Final Rhythm Strip Rhythm Strip: Sinus Rhythm Rate: 95 Ectopy: None Physical Exam Narrative alert, oriented x3, no apparent distress and healthy appearing General Appearance: cooperative, well kempt and well developed Orientation / Consciousness: awake, oriented to person, oriented to place and oriented to time HEENT normocephalic and moist oral mucous membranes HEENT Narrative: There is a healing wound over the patient's left forehead area which is several centimeters long Eyes PERRL, EOMs intact bilaterally and conjunctivae normal Neck supple, no JVD and thyroid normal General: trachea midline Resp normal respiratory effort, no retractions, no use of accessory muscles and clear to auscultation bilaterally Auscultation: Negative for rales, rhonchi or wheezes Cardio regular rate, regular rhythm, S1 normal heart sound, S2 normal heart sound, no rub and no gallops Cardio Narrative: There is a 2/6 systolic murmur noted at the apex and left sternal border GI normal to inspection, nondistended, normoactive bowel sounds, soft to palpation, non-tender and non-distended Extremity no clubbing, cyanosis or edema Skin no rashes or lesions noted General Skin Exam: no breakdown Neuro oriented x3, CN's II-XII intact bilaterally, no focal motor deficits and no sensory deficits noted Sensorium / Orientation: awake and alert Speech: speech normal Psych affect normal Assessment & Plan Assessment/Plan (1) CAD (coronary artery disease): (2) COPD (chronic obstructive pulmonary disease): PLAN: Plan 1. Acute diastolic congestive heart failure-continue present medications under direction of cardiology #2 [id number] will need a cardiac catheterization tomorrow to rule out coronary artery disease. #3 essential hypertension-patient will remain on his current medications #4 chronic obstructive pulmonary disease-complicates care, management, recovery, and prognosis #5 chronic hypoxic respiratory failure-patient is on oxygen at 2 L/min via nasal cannula at night, he also states that he uses it as needed shortness of breath. Total clinical time spent by myself addressing the patient's medical issues, reviewing the data, and collaborating with patient's care team: 25 minutes Charges/Coding Visit Charges Inpatient E&M: [id number] [facility] L1
[2022-03-14] MEDS: Atorvastatin Calcium 80 MG Tablet PO (20:26)
[2022-03-14] MEDS: Lisinopril 10 MG Tablet PO (20:26)
[2022-03-14 21:26] LABS: Bedside Glucose 173 mg/dL (74-106)
[2022-03-15] VITALS (19 sets, daily range): BP systolic 117–146; BP diastolic 35–105; PULSE 62–89; RESP 16–26; TEMP 2.5–36.6; O2SAT 85–100
--- NOTE | 2022-03-15 05:55 | EKG12_ITS ---
Test Reason : PRE-CATH Blood Pressure : / mmHG Vent. Rate : 082 BPM Atrial Rate : 082 BPM P-R Int : 216 ms QRS Dur : 084 ms QT Int : 390 ms P-R-T Axes : 041 -04 118 degrees QTc Int : 455 ms Sinus rhythm with 1st degree A-V block Nonspecific T wave abnormality Abnormal ECG When compared with ECG of 13-MAR-2022 05:02, MANUAL COMPARISON REQUIRED, DATA IS UNCONFIRMED Confirmed by MATIAS CARRILLO, LUIS F ([id number]), publishing editor ZACKARY MARTINEZ ([id number]) on 03/20/2022 11:12:00 AM Referred By: ANDREI Confirmed By:CHIN SALCEDO MD
[2022-03-15 06:31] LABS: Anion Gap 5 (5-15); BUN 67 mg/dL (7-18); BUN/Creat Ratio 34.2 RATIO (10-20); Calcium,Total 9.4 mg/dL (8.5-10.1); Chloride 101 mmol/L (98-107); Creatinine, Serum 1.96 mg/dL (0.70-1.30); EST Glomerular Filtration Rate 35 mL/min (>60); Est Glom Filt Rate - Afr Amer 42 mL/min (>60); Estimated Creatinine Clearance 25.28 ml/min; Glucose 155 mg/dL (74-106); Potassium 4.2 mmol/L (3.5-5.1); Sodium Level 141 mmol/L (136-145)
[2022-03-15 07:05] LABS: Bedside Glucose 138 mg/dL (74-106)
[2022-03-15] MEDS: Albuterol 2.5 MG/3 ML VIAL.NEB. INHALATION ×4 (07:23→20:05)
[2022-03-15] MEDS: Aspirin 81 MG TAB.CHEW PO (08:04)
[2022-03-15] MEDS: Carvedilol 3.125 MG TABLET PO (08:04)
[2022-03-15] MEDS: Lisinopril 10 MG Tablet PO ×2 (08:04→20:53)
--- NOTE | 2022-03-15 09:24 | CL.D_ITS ---
Patient Name: BEULAH BRIGHT Study Date: 03/15/2022 Performing: Emeka Blunt MD Ht: 65 inches 165.1 cm : 1940 Wt: 187.61 lbs 85.1 kg Age: 81 Gender: male BSA: 1.93 PROCEDURE(S) PERFORMED [id number])[facility] CLINICAL PROFILE AND INDICATIONS Indications: ACS > 24 hrs, Suspected CAD, Valvular Disease Heart Failure: NYHA Class: 3, Newly Diagnosed: Yes, Heart Failure Type: Diastolic Stress/Imaging Stress/Image Study Performed: No Angina Classification Anginal Classification w/in 2 Weeks: Anginal Equivalent Dyspnea CAD Presentations: Non-STEMI. CONCLUSIONS Normal Left Ventricular End Diastolic Pressure [place] Multivessel CAD Aortic Valve Calcification- Moderate RECOMMENDATIONS Risk factor modification Medical therapy DESCRIPTION OF PROCEDURE The patient arrived to the procedure lab. The risks and benefits of the procedure as well as a full description of our services here and current unavailability of surgical backup were fully explained to the patient and/or their significant other prior to the catheterization. The Timeout was completed, verifying the correct patient and procedure. The patient's procedural site was prepped and draped in the usual fashion. Local anesthetic was given subcutaneously to right groin region with Lidocaine 2%. Using a modified Seldinger technique, arterial access was obtained via the right femoral artery, a 4Fr sheath was inserted Left Coronary Artery selective angiography was performed in multiple views using a 4 Fr. JL5 catheter. Right Coronary Artery selective angiography was then performed in multiple views using a 4 Fr. 3DRC catheter. Right Coronary Artery selective angiography was then performed in multiple views using a 4 Fr. Pigtail catheter. LV to AO pullback pressures were then recorded.The arterial sheath was pulled and manual compression applied until hemostasis is achieved. CORONARY ANGIOGRAPHY DOMINANCE: Right Dominant LEFT HEART ASSESSMENT Left Ventricular Ejection Fraction: Not assessed Normal Left Ventricular End Diastolic Pressure LVEDP: 10 mmHg LEFT MAIN: Mild calcification, proximal: eccentric: 25 % Stenosis LEFT ANTERIOR DESCENDING ARTERY: Mild luminal irregularities PROX LAD: Mild calcification DIAGONAL 1: Proximal - Moderate calcification, Proximal - [place] bend with 50 % Stenosis CIRCUMFLEX ARTERY: PROX CIRC: Mild calcification, Mild luminal irregularities RIGHT CORONARY ARTERY: Mild luminal irregularities VALVE FINDINGS: Aortic Valve Calcification - moderate COMPLICATIONS No Complications PROCEDURE MEDICATIONS Versed 0.5 mg IV Fentanyl 25 mcg IV Oxygen: 2 L/min via nasal cannula SUMMARY OF HEMODYNAMIC DATA Time AIR REST ECG 08:21:24 AO 131/34 (76) SA 08:46:10 AO 126/42 (73) 08:46:47 LV 154/-5, 20 08:57:17 LV 155/-7, 10 08:57:26 LVp 159/-2, 16 08:57:38 AOp 138/39 (75) 08:57:46 09:16:01 Signed By Emeka Blunt MD On 03/15/2022 09:24:17 Emeka Blunt MD
--- NOTE | 2022-03-15 09:27 | PCM.PN.CARD ---
Subjective Subjective The patient was evaluated prior to the diagnostic cardiac catheterization procedure. He states he slept in bed and was able to lie supine comfortably. He had no new acute complaints. He has since undergone diagnostic cardiac catheterization procedure with no obvious adverse events. Objective Data Vital Signs: Vital Signs Temp Pulse Resp BP Pulse Ox O2 Del Method O2 Flow Rate 97.4 F L 74 18 125/105 H 96 Nasal Cannula 2 03/15/22 08:08 03/15/22 08:08 03/15/22 08:08 03/15/22 08:08 03/15/22 08:08 03/15/22 08:08 03/15/22 08:08 Oxygen Flow Rate (L/min) 2 Oxygen Delivery Method Nasal Cannula Weight: 187 lb 9.814 oz Body Mass Index (BMI) 73.3 Intake & Output: Intake and Output for Last 24 Hours 03/13/22 03/14/22 03/15/22 23:59 23:59 23:59 Intake Total 940 / 940 120 / 120 Output Total 1475 / 1475 1800 / 1800 400 / 400 Balance -1475 / -1475 -860 / -860 -280 / -280 Lab / Micro Data Result Diagrams: 03/13/22 06:28 03/15/22 05:37 Labs: Laboratory Results - last 24 hr 03/14/22 11:05: POC Glucose 136 H 03/14/22 16:27: POC Glucose 212 H 03/14/22 20:24: POC Glucose 173 H 03/15/22 05:37: Sodium 141, Potassium 4.2, Chloride 101, Carbon Dioxide 35.0 H, Anion Gap 5, BUN 67 H, Creatinine 1.96 H, Estim Creat Clear Calc 25.28, Est GFR (MDRD) Af Amer 42 L, Est GFR (MDRD) Non-Af 35 L, BUN/Creatinine Ratio 34.2 H, Glucose 155 H, Calcium 9.4 03/15/22 06:27: POC Glucose 138 H Rhythm Strip Rhythm Strip: Sinus Rhythm Rate: 95 Ectopy: None Cardiology Labs/Tests 03/15/22 05:37: Sodium 141, Potassium 4.2, Chloride 101, Carbon Dioxide 35.0 H, Anion Gap 5, BUN 67 H, Creatinine 1.96 H, Est GFR (MDRD) Af Amer 42 L, Est GFR (MDRD) Non-Af 35 L, BUN/Creatinine Ratio 34.2 H, Glucose 155 H, Calcium 9.4 Rhythm: Sinus rhythm EKG: Sinus rhythm; first-degree block; nonspecific T wave abnormality ECHO: Interpretation Summary The study was technically difficult. ? Based upon the 2D echocardiographic images obtained appears to be grossly normal left ventricular size, wall motion, and systolic function. The estimated ejection fraction is 65 %. Mild concentric left ventricular hypertrophy. The left atrium is mildly enlarged. Mild diffuse mitral valve thickening. Trivial mitral valve insufficiency. Trivial tricuspid valve insufficiency. Mild aortic stenosis. Mild (1+) aortic valve insufficiency. Trivial pericardial effusion. There are no echocardiographic indications of cardiac tamponade. Unable to estimate RV systolic pressure/pulmonary artery pressure due to technically difficult study. Diastolic function is indeterminate. ? Cardiac Cath: CONCLUSIONS Normal Left Ventricular End Diastolic Pressure [place] Multivessel CAD Aortic Valve Calcification- Moderate RECOMMENDATIONS Risk factor modification Medical therapy DESCRIPTION OF? PROCEDURE The patient arrived to the procedure lab. The risks and benefits of the procedure as well as a full description of our services here and current unavailability of surgical backup were fully explained to the patient and/or their significant other prior to the catheterization. The Timeout was completed, verifying the correct patient and procedure. The patient's procedural site was prepped and draped in the usual fashion. Local anesthetic was given subcutaneously to right groin region with Lidocaine 2%. Using a modified Seldinger technique, arterial access was obtained via the right femoral artery, a 4Fr sheath was inserted? Left Coronary Artery selective angiography was performed in multiple views using a 4 Fr. JL5 catheter. Right Coronary Artery selective angiography was then performed in multiple views using a 4 Fr. 3DRC catheter. Right Coronary Artery selective angiography was then performed in multiple views using a 4 Fr. Pigtail catheter. LV to AO pullback pressures were then recorded.The arterial sheath was pulled and manual compression applied until hemostasis is achieved. CORONARY ANGIOGRAPHY DOMINANCE:? Right Dominant LEFT HEART ASSESSMENT Left Ventricular Ejection Fraction: Not assessed Normal Left Ventricular End Diastolic Pressure LVEDP: 10 mmHg LEFT MAIN: Mild calcification, proximal: eccentric: 25 % Stenosis LEFT ANTERIOR DESCENDING ARTERY: Mild luminal irregularities PROX LAD: Mild calcification DIAGONAL 1: Proximal - Moderate calcification, Proximal - comanche bend with 50 % Stenosis CIRCUMFLEX ARTERY: PROX CIRC: Mild calcification, Mild luminal irregularities RIGHT CORONARY ARTERY: Mild luminal irregularities VALVE FINDINGS: Aortic Valve Calcification - moderate Physical Exam Const alert, oriented x3 and no apparent distress Orientation / Consciousness: awake HEENT normocephalic, head/scalp atraumatic and hearing grossly normal bilaterally Eyes PERRL, EOMs intact bilaterally, conjunctivae normal and no scleral icterus Neck full ROM, supple and no JVD Carotids: normal carotid upstroke Resp Auscultation: diminished lung sounds bilateral (Improved compared to admission) lower Cardio regular rate, regular rhythm, S1 normal heart sound and S2 normal heart sound Heart Sounds: murmur systolic II/ harsh mid left sternal border, LVOT and sternal notch to carotid arteries GI normal to inspection, nondistended, normoactive bowel sounds Extremity no pedal edema Skin no rashes or lesions noted Psych mental status grossly normal Assessment & Plan Assessment/Plan (1) Non-ST elevation (NSTEMI) myocardial infarction: PLAN: The patient demonstrates evidence of a non-ST segment elevation NM. At the present time the concern this is a type II event superimposed upon his underlying cardiovascular disease process which has been found to have an element of CAD and aortic valve stenosis. The patient will continue medical management at this time. This will include a combination of aspirin, nitrates if needed, beta-blockers with adjustment of the dose to increase carvedilol to 6.25 mg p.o. twice daily, diuretics with subsequent adjustment as needed, afterload reducing agents with his RICH inhibitor, and lipid-lowering agents with his statin. (2) CAD (coronary artery disease): PLAN: The patient is noted to have underlying CAD based upon the results of his diagnostic cardiac catheterization. At the present time he will continue medical management. There are no immediate plans for catheter-based or surgical based revascularization therapy. From a medical standpoint this will include medications as noted above with adjustment as deemed appropriate. (3) Acute CHF (congestive heart failure): PLAN: The patient does have what appears to be acute CHF. It appears this is diastolic mediated as his overall LV systolic function is preserved. He will continue medical therapy with diuretics. His diuretic dose will be adjusted to oral diuretics. He will need continued follow-up of his renal function. (4) Aortic valve stenosis, acquired: PLAN: The patient does have an element of aortic valve stenosis. Based upon his noninvasive and invasive studies this appears to be mild thus far. This can be followed in the future with future echocardiographic studies. (5) Bilateral pleural effusion: PLAN: The patient does have bilateral pleural effusions. He will continue diuretic therapy at this time. It may be reasonable to consider a future follow-up chest x-ray to reassess his status. (6) HLD (hyperlipidemia): PLAN: The patient has a history of hyperlipidemia. He should continue lipid-lowering therapy with his atorvastatin previously noted at 80 mg p.o. daily. (7) HTN (hypertension): PLAN: The patient's blood pressure will need to be monitored. His medications will need to be adjusted accordingly. (8) COPD (chronic obstructive pulmonary disease): PLAN: The patient has underlying COPD. He will continue evaluation care by internal medicine and if need be pulmonology/critical care medicine. (9) Renal insufficiency: PLAN: The patient does have an element of renal insufficiency. This may be secondary to his diuresis. His diuretics will be adjusted. His renal function will need to be followed. Addt'l Comments The patient's case has been discussed and reviewed with the patient and Dr. Sosa. Comment: Time spent the patient's overall evaluation, care, documentation, etc.: 60 minutes Procedure Criteria Type of Procedure Procedure Type: Elective Elective Risks - COVID COVID Risk Discussion: The surgeon/proceduralist and patient have discussed in detail the risk of exposure to and/or potential harm posed by the COVID-19 virus with having a surgery/procedure at this time versus the risk of delaying the surgery/procedure. It is not possible to know either the risk of delaying the surgery or procedure or chance of getting an infection with perfect accuracy, but a joint decision was made between the patient and the surgeon/proceduralist to proceed at this time with the scheduled surgery/procedure as indicated on the consent form.
[2022-03-15] MEDS: 0.9% Normal Saline 1,000 ML 50 ML IV (10:30)
[2022-03-15] MEDS: Insulin Lispro 100 UNIT/ML INSULN.PEN SC ×2 (12:39→16:25)
[2022-03-15] MEDS: Menthol/Lanolin/Calamine/Znox 113 GM Tube 1 APPLIC TOPICAL ×2 (12:39→20:53)
[2022-03-15 13:00] LABS: Bedside Glucose 283 mg/dL (74-106)
--- NOTE | 2022-03-15 15:56 | NURSING ---
temp is 36.5 deg celsius
[2022-03-15] MEDS: Furosemide 40 MG Tablet PO (16:25)
[2022-03-15 17:15] LABS: Bedside Glucose 259 mg/dL (74-106)
--- NOTE | 2022-03-15 19:19 | PCM.PN.HOSP ---
Subjective Subjective Patient was seen and examined today, he underwent a cardiac catheterization today which showed nonocclusive coronary artery disease, it was recommended by cardiology that the patient be treated medically. Patient is still requiring 2 L of oxygen at rest, I believe that this oxygen could be weaned tomorrow, he will need to be ambulated before he goes home. Patient does have oxygen at 2 L/min which she uses at night and as needed shortness of breath. Patient's creatinine was elevated at 1.96 today, I will repeat his BMP tomorrow. Objective Data Objective Data Vital Signs: Vital Signs Temp Pulse Resp BP Pulse Ox O2 Del Method O2 Flow Rate 36.5 F L 89 26 H 136/35 H 99 Nasal Cannula 2 03/15/22 13:56 03/15/22 14:59 03/15/22 14:12 03/15/22 13:56 03/15/22 12:30 03/15/22 14:46 03/15/22 14:46 Oxygen Flow Rate (L/min) 2 Oxygen Delivery Method Nasal Cannula Weight: 85.1 kg Body Mass Index (BMI) 73.3 Intake & Output: Intake and Output for Last 24 Hours 03/13/22 03/14/22 03/15/22 23:59 23:59 23:59 Intake Total 940 / 940 120 / 120 Output Total 1475 / 1475 1800 / 1800 800 / 800 Balance -1475 / -1475 -860 / -860 -680 / -680 Lab / Micro Data Result Diagrams: 03/13/22 06:28 03/15/22 05:37 Labs: Laboratory Results - last 24 hr 03/14/22 20:24: POC Glucose 173 H 03/15/22 05:37: Sodium 141, Potassium 4.2, Chloride 101, Carbon Dioxide 35.0 H, Anion Gap 5, BUN 67 H, Creatinine 1.96 H, Estim Creat Clear Calc 25.28, Est GFR (MDRD) Af Amer 42 L, Est GFR (MDRD) Non-Af 35 L, BUN/Creatinine Ratio 34.2 H, Glucose 155 H, Calcium 9.4 03/15/22 06:27: POC Glucose 138 H 03/15/22 12:38: POC Glucose 283 H 03/15/22 16:23: POC Glucose 259 H Micro: Microbiology 03/12/22 00:00 Nasal Secretion SARS-CoV-2 & FLU Antigen (Rapid) - Final Rhythm Strip Rhythm Strip: Sinus Rhythm Rate: 95 Ectopy: None Physical Exam Narrative alert, oriented x3, no apparent distress and healthy appearing General Appearance: cooperative, well kempt and well developed Orientation / Consciousness: awake, oriented to person, oriented to place and oriented to time HEENT normocephalic and moist oral mucous membranes HEENT Narrative: There is a healing wound over the patient's left forehead area which is several centimeters long Eyes PERRL, EOMs intact bilaterally and conjunctivae normal Neck supple, no JVD and thyroid normal General: trachea midline Resp normal respiratory effort, no retractions, no use of accessory muscles and clear to auscultation bilaterally Auscultation: Negative for rales, rhonchi or wheezes Cardio regular rate, regular rhythm, S1 normal heart sound, S2 normal heart sound, no rub and no gallops Cardio Narrative: There is a 2/6 systolic murmur noted at the apex and left sternal border GI normal to inspection, nondistended, normoactive bowel sounds, soft to palpation, non-tender and non-distended Extremity no clubbing, cyanosis or edema Skin no rashes or lesions noted General Skin Exam: no breakdown Neuro oriented x3, CN's II-XII intact bilaterally, no focal motor deficits and no sensory deficits noted Sensorium / Orientation: awake and alert Speech: speech normal Psych affect normal Assessment & Plan Assessment/Plan (1) CAD (coronary artery disease): (2) COPD (chronic obstructive pulmonary disease): PLAN: Plan 1. Acute diastolic congestive heart failure-continue present medications under direction of cardiology, patient was changed over to p.o. Lasix today #2 [id number] has nonobstructive coronary artery disease, he will be treated medically #3 essential hypertension-patient will remain on his current medications #4 chronic obstructive pulmonary disease-complicates care, management, recovery, and prognosis #5 chronic hypoxic respiratory failure-patient is on oxygen at 2 L/min via nasal cannula at night, he also states that he uses it as needed shortness of breath, patient will need ambulatory pulse ox before he goes home . Total clinical time spent by myself addressing the patient's medical issues, reviewing the data, and collaborating with patient's care team: 35 minutes Charges/Coding Visit Charges Inpatient E&M: 62008 Subs Hosp L2
[2022-03-15] MEDS: Enoxaparin 100 MG/ML Syringe 95 MG SC (20:53)
[2022-03-15] MEDS: Carvedilol 6.25 MG Tablet PO (20:53)
[2022-03-15] MEDS: Atorvastatin Calcium 80 MG Tablet PO (20:54)
[2022-03-15 21:16] LABS: Bedside Glucose 87 mg/dL (74-106)
[2022-03-16 03:00] VITALS: BP 140/37; PULSE 65; RESP 20; TEMP 36.6; O2SAT 100
[2022-03-16 06:46] LABS: Absolute Lymphocyte Count 1.66 X10^3/uL (0.83-4.51); Absolute Neutrophil Count 3.8 X10^3/uL (2.0-7.7); Basophil# 0.03 X10^3/uL; Basophil% 0.5 % (0-1); Eosinophil# 0.29 X10^3/uL; Eosinophils% 4.6 % (0-5); Hematocrit 32.9 % (40-54); Hemoglobin 10.3 g/dL (13.0-16.5); Lymphocyte # 1.66 X10^3/ul (0.83-4.51); Lymphocyte % 26.1 % (19-41); Mean Corp Hgb Conc 31.3 g/dL (32-36); Mean Corpuscular Hgb 29.9 pg (27.0-32.0); Mean Corpuscular Volume 95.6 fL (80-94); Mean Platelet Vol. 11.8 fl (6.2-12.0); Monocyte# 0.57 X10^3/uL; NRBC Flagged by Analyzer 0.3 % (0-5); Neutrophil # 3.79 X10^3/uL (2.7-7.7); Neutrophil % 59.6 % (47-70); Platelet Count 116 K/mm3 (150-450); RBC Distribution Width CV 14.6 % (11.6-14.6); RBC Distribution Width SD 50.6 fl (35.1-43.9); Red Blood Count 3.44 M/mm3 (4.6-6.2); White Blood Count 6.4 K/mm3 (4.4-11.0)
[2022-03-16 06:48] VITALS: O2SAT 70; O2SAT 85; O2SAT 91; O2SAT 97
[2022-03-16] MEDS: Albuterol 2.5 MG/3 ML VIAL.NEB. INHALATION ×2 (06:54→10:56)
[2022-03-16 06:56] LABS: International Normalized Ratio 1.2; Prothrombin Time (Protime)PT. 14.5 SECONDS (11.7-14.9)
[2022-03-16 06:57] LABS: Partial Thromboplast Time 40.9 Seconds (24.1-36.2)
[2022-03-16 07:10] LABS: Anion Gap 7 (5-15); BUN 70 mg/dL (7-18); BUN/Creat Ratio 34.1 RATIO (10-20); Chloride 102 mmol/L (98-107); Creatinine, Serum 2.05 mg/dL (0.70-1.30); EST Glomerular Filtration Rate 33 mL/min (>60); Est Glom Filt Rate - Afr Amer 40 mL/min (>60); Estimated Creatinine Clearance 24.17 ml/min; Glucose 141 mg/dL (74-106); Potassium 4.1 mmol/L (3.5-5.1); Sodium Level 144 mmol/L (136-145)
[2022-03-16 07:34] VITALS: PULSE 78; RESP 20; O2SAT 92
[2022-03-16] MEDS: Menthol/Lanolin/Calamine/Znox 113 GM Tube 1 APPLIC TOPICAL (07:45)
[2022-03-16] MEDS: Aspirin 81 MG TAB.CHEW PO (07:45)
[2022-03-16] MEDS: Enoxaparin 100 MG/ML Syringe 95 MG SC (07:47)
[2022-03-16] MEDS: Carvedilol 6.25 MG Tablet PO (07:50)
[2022-03-16] MEDS: Lisinopril 10 MG Tablet PO (07:50)
[2022-03-16 08:15] LABS: Bedside Glucose 137 mg/dL (74-106)
[2022-03-16 09:00] VITALS: BP 107/42; PULSE 66; RESP 18; TEMP 36.6; O2SAT 99
--- NOTE | 2022-03-16 09:45 | DCINST_ITS ---
Discharge Instructions Diet Discharge Diet: Low fat / Low cholesterol and 6 Cup Fluid Restriction Activity Discharge Activity: Return to Normal Activity Dressing / Incision Call your doctor if you observe: Fever of 101 or Higher, Shortness of breath, Dizziness, Fainting spells, Swelling in the ankles, Chest pain and Increased palpitations (irregular heartbeat) Follow Up Care Test Results: Test results from this visit will be discussed in further detail at your follow- up appointment, if applicable. Discharge Plan Admission Admit Date/Time: 03/12/22 02:42 Attending Provider: John Anders Primary Care Provider: Adrianna Nichols Consulting Providers: Andre Rodriguez ; Emeka Blunt ; Anthony Sosa Instructions Additional Instructions / Restrictions: Follow-up with your PCP in 3 to 5 days and obtain a BMP to monitor your renal function restart your torsemide tomorrow and your lisinopril on Sunday Discharge Orders/Prescriptions Prescriptions: New carvedilol 6.25 mg Tablet 6.25 mg PO BID Qty: 60 0RF aspirin 81 mg Tablet,Chewable 81 mg PO DAILY@0800 Qty: 30 0RF Continued atorvastatin 80 mg tablet 80 mg PO DAILY Label Comments: TAKE 1 TABLET BY MOUTH ONCE DAILY ipratropium-albuterol 0.5 mg-3 mg(2.5 mg base)/3 mL solution for nebulization 3 ml inhalation 4X/DAY PRN (Reason: sob) Label Comments: inhale contents of 1 vial ( 3 milliliters ) in nebulizer by mouth... (REFER TO PRESCRIPTION NOTES). liothyronine 25 mcg tablet 25 mcg PO DAILY Label Comments: TAKE 1 TABLET BY MOUTH ONCE DAILY FOR 90 DAYS metformin 1,000 mg tablet 500 mg PO BID glimepiride 4 mg tablet 4 mg PO DAILY Label Comments: TAKE 1 TABLET BY MOUTH ONCE DAILY Spiriva with HandiHaler 18 mcg capsule, w/inhalation device 18 mcg INHALATION DAILY Label Comments: INHALE THE CONTENTS OF 1 CAPSULE TWICE EACH TIME VIA HANDIHALER ONCE DAILY cholecalciferol (vitamin D3) 25 mcg (1,000 unit) Capsule 25 mcg PO DAILY omega-3 fatty acids-vitamin E 1,000 mg Capsule 2 cap PO BID PreserVision AREDS [id number] Capsule 1 cap PO BID baclofen 10 mg tablet 10 mg PO TID PRN PRN (Reason: Muscle Spasm) Label Comments: TAKE 1 TABLET BY MOUTH THREE TIMES DAILY NEEDED FOR MUSCLE SPASMS Changed torsemide 10 mg tablet 10 mg PO DAILY Qty: 1 0RF Held lisinopril [Zestril] 20 mg tablet 20 mg PO DAILY Hold Instructions: Resume on 03/18/22. Referrals / Follow Up: Adrianna Nichols DO [Primary Care Provider] - Within 1 Week Emeka Blunt MD [Med Staff - Active Staff] - Within 3 Months Disposition Disposition (needs filled in before D/C Order can be placed): Home, Self Care
--- NOTE | 2022-03-16 10:17 | PN.CARD_ITS ---
Subjective Subjective The patient is awake and alert. He states his breathing has improved overall. He has no new acute complaints. Objective Data Vital Signs: Vital Signs Temp Pulse Resp BP Pulse Ox O2 Del Method O2 Flow Rate 97.9 F 66 18 107/42 L 99 Nasal Cannula 2 03/16/22 09:00 03/16/22 09:00 03/16/22 09:00 03/16/22 09:00 03/16/22 09:00 03/16/22 09:00 03/16/22 09:00 Oxygen Flow Rate (L/min) [ 2 AMBULATING with Oxygen #1] Oxygen Flow Rate (L/min) [At 2 REST with Oxygen] Oxygen Flow Rate (L/min) 2 Oxygen Delivery Method Nasal Cannula Weight: 187 lb 9.814 oz Body Mass Index (BMI) 73.3 Intake & Output: Intake and Output for Last 24 Hours 03/14/22 03/15/22 03/16/22 23:59 23:59 23:59 Intake Total 940 / 940 120 / 120 1000 / 1000 Output Total 1800 / 1800 800 / 800 Balance -860 / -860 -680 / -680 1000 / 1000 Lab / Micro Data Result Diagrams: 03/16/22 06:13 03/16/22 06:13 Labs: Laboratory Results - last 24 hr 03/15/22 12:38: POC Glucose 283 H 03/15/22 16:23: POC Glucose 259 H 03/15/22 20:52: POC Glucose 87 03/16/22 06:13: WBC 6.4, RBC 3.44 L, Hgb 10.3 L, Hct 32.9 L, MCV 95.6 H, MCH 29.9, MCHC 31.3 L, RDW Std Deviation 50.6 H, RDW Coeff of John 14.6, Plt Count 116 L, MPV 11.8, Immature Gran % (Auto) 0.200, Neut % (Auto) 59.6, Lymph % (Auto) 26.1, [place] % (Auto) 9.0, Eos % (Auto) 4.6, Baso % (Auto) 0.5, Absolute Neuts (auto) 3.8, Absolute Lymphs (auto) 1.66, Nucleated RBC % 0.3 03/16/22 06:13: PT 14.5, INR 1.2, APTT 40.9 H 03/16/22 06:13: Sodium 144, Potassium 4.1, Chloride 102, Carbon Dioxide 35.0 H, Anion Gap 7, BUN 70 H, Creatinine 2.05 H, Estim Creat Clear Calc 24.17, Est GFR (MDRD) Af Amer 40 L, Est GFR (MDRD) Non-Af 33 L, BUN/Creatinine Ratio 34.1 H, Glucose 141 H, Calcium 9.0 03/16/22 07:55: POC Glucose 137 H Rhythm Strip Rhythm Strip: Sinus Rhythm Rate: 95 Ectopy: None Cardiology Labs/Tests 03/16/22 06:13: WBC 6.4, RBC 3.44 L, Hgb 10.3 L, Hct 32.9 L, MCV 95.6 H, MCH 29.9, MCHC 31.3 L, Plt Count 116 L, MPV 11.8, Immature Gran % (Auto) 0.200, Neut % (Auto) 59.6, Lymph % (Auto) 26.1, [place] % (Auto) 9.0, Eos % (Auto) 4.6, Baso % (Auto) 0.5, Absolute Neuts (auto) 3.8, Nucleated RBC % 0.3 03/16/22 06:13: PT 14.5, INR 1.2, APTT 40.9 H 03/16/22 06:13: Sodium 144, Potassium 4.1, Chloride 102, Carbon Dioxide 35.0 H, Anion Gap 7, BUN 70 H, Creatinine 2.05 H, Est GFR (MDRD) Af Amer 40 L, Est GFR (MDRD) Non-Af 33 L, BUN/Creatinine Ratio 34.1 H, Glucose 141 H, Calcium 9.0 Rhythm: Sinus rhythm Physical Exam Const alert, oriented x3 and no apparent distress Orientation / Consciousness: awake HEENT normocephalic, head/scalp atraumatic and hearing grossly normal bilaterally Eyes PERRL, EOMs intact bilaterally, conjunctivae normal and no scleral icterus Neck full ROM, supple and no JVD Carotids: normal carotid upstroke Resp Auscultation: diminished lung sounds bilateral (Improved compared to admission) lower Cardio regular rate, regular rhythm, S1 normal heart sound and S2 normal heart sound Heart Sounds: murmur systolic II/ harsh mid left sternal border, LVOT and sternal notch to carotid arteries GI normal to inspection, nondistended, normoactive bowel sounds Extremity no pedal edema Extremity Narrative: Right inguinal area: Cardiac catheterization site: Pulse 2+/4+: No bruit: No hematoma Skin no rashes or lesions noted Psych mental status grossly normal Assessment & Plan Assessment/Plan (1) Non-ST elevation (NSTEMI) myocardial infarction: PLAN: The patient demonstrates evidence of a non-ST segment elevation ID. At the present time the concern this is a type II event superimposed upon his underlying cardiovascular disease process which has been found to have an element of CAD and aortic valve stenosis. The patient will continue medical management at this time. This will include a combination of aspirin, nitrates if needed, beta-blockers with adjustment of the dose to increase carvedilol to 6.25 mg p.o. twice daily, diuretics with subsequent adjustment as needed back to his baseline torsemide/Demadex, afterload reducing agents with his RICH inhibitor, and lipid-lowering agents with his statin. (2) CAD (coronary artery disease): PLAN: The patient is noted to have underlying CAD based upon the results of his diagnostic cardiac catheterization. At the present time he will continue medical management. There are no immediate plans for catheter-based or surgical based revascularization therapy. From a medical standpoint this will include medications as noted above with adjustment as deemed appropriate. (3) Acute CHF (congestive heart failure): PLAN: The patient does have what appears to be acute CHF. It appears this is diastolic mediated as his overall LV systolic function is preserved. He will continue medical therapy with diuretics. His diuretic dose will be adjusted to oral diuretics. This will include changing back to his outpatient torsemide/Demadex at an increased dose. He will need continued follow-up of his renal function. (4) Aortic valve stenosis, acquired: PLAN: The patient does have an element of aortic valve stenosis. Based upon his noninvasive and invasive studies this appears to be mild thus far. This can be followed in the future with future echocardiographic studies. (5) Bilateral pleural effusion: PLAN: The patient does have bilateral pleural effusions. He will continue diuretic therapy at this time. (6) HLD (hyperlipidemia): PLAN: The patient has a history of hyperlipidemia. He should continue lipid-lowering therapy with his atorvastatin previously noted at 80 mg p.o. daily. (7) HTN (hypertension): PLAN: The patient's blood pressure will need to be monitored. His medications will need to be adjusted accordingly. (8) COPD (chronic obstructive pulmonary disease): PLAN: The patient has underlying COPD. He will continue evaluation care by internal medicine and if need be pulmon ology/critical care medicine. (9) Renal insufficiency: PLAN: The patient does have an element of renal insufficiency. His creatinine level has elevated somewhat but without significant change. This may be a combination of his diuretics and the cardiac catheterization with IV contrast. At the present time his diuretic dose is being adjusted. He will need future follow-up laboratory studies to monitor his renal function. Addt'l Comments The patient's case has been discussed and reviewed with the patient at length. He has been recommended for continued medical management and continued outpatient primary care follow-up and cardiovascular follow-up. He was agreeable with this approach. Thank you for allowing me to participate in the care of your patient. Please don't hesitate to call if any issues arise. This note was generated using a voice recognition system and there may be incorrect words, spelling or punctuation that were not noted when reviewing the office note prior to saving. Comment: Time spent in the patient's evaluation and care: 37 minutes. Procedure Criteria Type of Procedure Procedure Type: Elective Elective Risks - COVID COVID Risk Discussion: The surgeon/proceduralist and patient have discussed in detail the risk of exposure to and/or potential harm posed by the COVID-19 virus with having a surgery/procedure at this time versus the risk of delaying the surgery/procedure. It is not possible to know either the risk of delaying the surgery or procedure or chance of getting an infection with perfect accuracy, but a joint decision was made between the patient and the surgeon/proceduralist to proceed at this time with the scheduled surgery/procedure as indicated on the consent form.
--- NOTE | 2022-03-16 10:21 | CASEMGMT ---
Pt did not require increased oxygen rx.
[2022-03-16 11:17] VITALS: PULSE 80; RESP 20
--- NOTE | 2022-03-16 14:40 | DS.PCM_ITS ---
Providers Date of Admission: 03/12/22 Primary Care Physician: Dr. Adrianna Nichols DO Consultations 03/12/22 05:22 Consult: Cardiology Routine Consulting Provider: Emeka Blunt Reason for Consult: Elevated troponin EMERGENT Consult: No MD Notified: Yes Date Notified: 03/12/22 Time Notified: 07:33 Method of Notification: Text Reason For Visit: ACUTE ON CHRONIC HEART FAILURE WITH PRESERVED EF Diagnosis Discharge Diagnosis (1) Non-ST elevation (NSTEMI) myocardial infarction: Status: Acute Code(s): I21.4 - Non-ST elevation (NSTEMI) myocardial infarction (2) CAD (coronary artery disease): Status: Acute Code(s): I25.10 - Atherosclerotic heart disease of [place] coronary artery without angina pectoris (3) Acute CHF (congestive heart failure): Status: Acute Code(s): I50.9 - Heart failure, unspecified (4) Aortic valve stenosis, acquired: Status: Acute Code(s): I35.0 - Nonrheumatic aortic (valve) stenosis (5) Bilateral pleural effusion: Status: Acute Code(s): J90 - Pleural effusion, not elsewhere classified (6) HLD (hyperlipidemia): Status: Acute Code(s): E78.5 - Hyperlipidemia, unspecified (7) HTN (hypertension): Status: Chronic Code(s): I10 - Essential (primary) hypertension (8) COPD (chronic obstructive pulmonary disease): Status: Chronic Code(s): J44.9 - Chronic obstructive pulmonary disease, unspecified (9) Renal insufficiency: Status: Acute Code(s): N28.9 - Disorder of kidney and ureter, unspecified Medications at Discharge Home Medications atorvastatin 80 mg tablet 80 mg PO DAILY CHOLESTEROL 05/02/21 cholecalciferol (vitamin D3) 25 mcg (1,000 unit) capsule 25 mcg PO DAILY vitamin 05/02/21 glimepiride 4 mg tablet 4 mg PO DAILY diabetes 05/02/21 ipratropium 0.5 mg-albuterol 3 mg (2.5 mg base)/3 mL nebulization soln 3 ml inhalation 4X/DAY PRN sob 05/02/21 liothyronine 25 mcg tablet 25 mcg PO DAILY THYROID 05/02/21 metformin 1,000 mg tablet 500 mg PO BID DM 02/21/22 omega-3 fatty acids-vitamin E 1,000 mg capsule 2 cap PO BID SUPPLEMENT 05/02/21 tiotropium bromide 18 mcg capsule with inhalation device (Spiriva with HandiHaler) 18 mcg inhalation DAILY SOB 05/02/21 vitamins A,C,N-lplw-czymne 14,320 unit-226 mg-200 unit capsule (PreserVision AREDS) 1 cap PO BID vitamin 12/13/21 baclofen 10 mg tablet 10 mg PO TID PRN PRN Muscle Spasm 03/12/22 lisinopril 20 mg tablet (Zestril) 20 mg PO DAILY blood pressure 03/12/22 aspirin 81 mg chewable tablet 81 mg PO DAILY@0800 #30 tabs 03/16/22 carvedilol 6.25 mg tablet 6.25 mg PO BID #60 tabs 03/16/22 torsemide 10 mg tablet 10 mg PO DAILY Diuretic #1 TAB 03/16/22 Hospital Course Operations None Procedures 2-D Echocardiogram Summary of Care Provided Minutes Spent on Discharge: 41 Hospital Course: Per HPI: BEULAH BRIGHT, is a 81 M with a significant history of COPD; diabetes mellitus; hyperlipidemia; hypertension; hypothyroidism; obesity; polyarthralgia and gout who presents to the emergency department with 2-day history of progressively worsening shortness of breath. ? His shortness of breath increases markedly with exertion.? Associated with his symptoms is proximal nocturnal dyspnea.? He reports cough.? He denies orthopnea. Baseline patient uses 2 L nasal cannula of oxygen.? At the emergency department his oxygen saturation was increased to 4 L initially and later weaned back to 2 L.? Patient is on home torsemide 5 mg daily.? He report that about a year ago he was on 10 mg but it had to be cut back to 5 mg.? At the emergency department he was given 40 mg of Lasix with good diuresis. He reports bilateral leg edema that has not changed. Hospital Course: 1. Acute on chronic diastolic heart failure/non-STEMI/HTN?81-year-old male presented to the hospital with a 2-day history of worsening shortness of breath. He was requiring 4 L of oxygen when he came in, at baseline at home he wears 2 L nasal cannula at night. He was started on aggressive diuresis and cardiology was consulted. Repeat echo was obtained with an EF of 65%. Today he was back down to his 2 L nasal cannula and was doing well, swelling was improved. I discussed with him the possibility for discharge today and he expressed understanding of the risk benefits going home and would like to go home today. He refused home health care. I discussed the discharge plan with cardiology who is also okay with him going home, I did increase his torsemide from 5 mg p.o. daily to 10 mg p.o. daily to start tomorrow. I also held his lisinopril until Sunday secondary to a slight increase in his creatinine to 2.05 on the day of discharge. He will need to have a BMP as an outpatient for monitoring of his renal function. He was also discharged on Coreg 6.25 mg p.o. twice daily and the rest of his medications will remain stable. He will need to follow-up with cardiology as an outpatient as well. 2. COPD with chronic hypoxic respiratory failure, type 2 diabetes are chronic conditions which complicate his care. His home medications were continued where appropriate Physical Exam Narrative General: Alert, Oriented x3, Cooperative, No apparent distress HEENT: Atraumatic, PERRLA, EOMI, Normocephalic Oral: Moist Mucosa Neck: Supple, No JVD Lungs: Diminished, Normal air movement, No rhonchi, No wheeze, No rales Cardiovascular: Regular rate, Regular Rhythm, Normal S1, Normal S2, murmur Abdomen: Soft, Non Tender, Non-Distended, No Hepato-splenomegaly Extremities: No edema, Capillary Refill Less than 3 Seconds Skin: No rashes, No breakdown Musculoskeletal: No Tenderness to Palpation of Joints or Extremities Neurological: Cranial nerves II-XII grossly intact, Motor Exam 5/5 strength throughout, Sensory exam intact to light touch and pain Psych/Mental Status: Normal Affect, Appropriate Weight / BMI Weight Weight: 187 lb 9.814 oz Body Mass Index (BMI) 73.3 ABG / Lab / Microbiology Data Result Diagrams: 03/16/22 06:13 03/16/22 06:13 Laboratory: Laboratory Results - last 24 hr 03/15/22 16:23: POC Glucose 259 H 03/15/22 20:52: POC Glucose 87 03/16/22 06:13: WBC 6.4, RBC 3.44 L, Hgb 10.3 L, Hct 32.9 L, MCV 95.6 H, MCH 29.9, MCHC 31.3 L, RDW Std Deviation 50.6 H, RDW Coeff of John 14.6, Plt Count 116 L, MPV 11.8, Immature Gran % (Auto) 0.200, Neut % (Auto) 59.6, Lymph % (Auto) 26.1, Saunders % (Auto) 9.0, Eos % (Auto) 4.6, Baso % (Auto) 0.5, Absolute Neuts (auto) 3.8, Absolute Lymphs (auto) 1.66, Nucleated RBC % 0.3 03/16/22 06:13: PT 14.5, INR 1.2, APTT 40.9 H 03/16/22 06:13: Sodium 144, Potassium 4.1, Chloride 102, Carbon Dioxide 35.0 H, Anion Gap 7, BUN 70 H, Creatinine 2.05 H, Estim Creat Clear Calc 24.17, Est GFR (MDRD) Af Amer 40 L, Est GFR (MDRD) Non-Af 33 L, BUN/Creatinine Ratio 34.1 H, Glucose 141 H, Calcium 9.0 03/16/22 07:55: POC Glucose 137 H Microbiology: Microbiology 03/12/22 00:00 Nasal Secretion SARS-CoV-2 & FLU Antigen (Rapid) - Final D/C Instructions Discharge Diet: Low fat / Low cholesterol and 6 Cup Fluid Restriction Call your doctor if you observe: Fever of 101 or Higher, Shortness of breath, Dizziness, Fainting spells, Swelling in the ankles, Chest pain and Increased palpitations (irregular heartbeat) Meaningful Use Info Meaningful Use Diagnoses (Choose all that apply): None applicable Discharge Plan Admission Admit Date/Time: 03/12/22 02:42 Attending Provider: John Anders Primary Care Provider: Adrianna Nichols Consulting Providers: Andre Rodriguez ; Emeka Blunt ; Anthony Sosa Instructions Additional Instructions / Restrictions: Follow-up with your PCP in 3 to 5 days and obtain a BMP to monitor your renal function restart your torsemide tomorrow and your lisinopril on Sunday Discharge Orders/Prescriptions Prescriptions: New carvedilol 6.25 mg Tablet 6.25 mg PO BID Qty: 60 0RF aspirin 81 mg Tablet,Chewable 81 mg PO DAILY@0800 Qty: 30 0RF Continued atorvastatin 80 mg tablet 80 mg PO DAILY Label Comments: TAKE 1 TABLET BY MOUTH ONCE DAILY ipratropium-albuterol 0.5 mg-3 mg(2.5 mg base)/3 mL solution for nebulization 3 ml inhalation 4X/DAY PRN (Reason: sob) Label Comments: inhale contents of 1 vial ( 3 milliliters ) in nebulizer by mouth... (REFER TO PRESCRIPTION NOTES). liothyronine 25 mcg tablet 25 mcg PO DAILY Label Comments: TAKE 1 TABLET BY MOUTH ONCE DAILY FOR 90 DAYS metformin 1,000 mg tablet 500 mg PO BID glimepiride 4 mg tablet 4 mg PO DAILY Label Comments: TAKE 1 TABLET BY MOUTH ONCE DAILY Spiriva with HandiHaler 18 mcg capsule, w/inhalation device 18 mcg INHALATION DAILY Label Comments: INHALE THE CONTENTS OF 1 CAPSULE TWICE EACH TIME VIA HANDIHALER ONCE DAILY cholecalciferol (vitamin D3) 25 mcg (1,000 unit) Capsule 25 mcg PO DAILY omega-3 fatty acids-vitamin E 1,000 mg Capsule 2 cap PO BID PreserVision AREDS 14320-226-200 [id number] Capsule 1 cap PO BID baclofen 10 mg tablet 10 mg PO TID PRN PRN (Reason: Muscle Spasm) Label Comments: TAKE 1 TABLET BY MOUTH THREE TIMES DAILY NEEDED FOR MUSCLE SPASMS Changed torsemide 10 mg tablet 10 mg PO DAILY Qty: 1 0RF Held lisinopril [Zestril] 20 mg tablet 20 mg PO DAILY Hold Instructions: Resume on 03/18/22. Referrals / Follow Up: Adrianna Nichols DO [Primary Care Provider] - Within 1 Week Emeka Blunt MD [Med Staff - Active Staff] - Within 3 Months Disposition Disposition (needs filled in before D/C Order can be placed): Home, Self Care Charges/Coding Visit Charges Inpatient E&M: 83803 Disch Hosp >30min
== END 2022-03-16 13:00 | disposition home or self-care (01) | DRG 280 ==
LOC: ED 03-12 02:43 → MS2 03-12 03:08
PROVIDERS: Internal Medicine; Internal Medicine Cardiovascular Disease; Admitting Provider Hospitalist; Emergency Provider Emergency Medicine; PCP Family Medicine; Visit Provider Family Medicine
DX: I11.0 Hypertensive heart disease with heart failure (principal); I21.4 Non-ST elevation (NSTEMI) myocardial infarction; I50.33 Acute on chronic diastolic (congestive) heart failure; E87.0 Hyperosmolality and hypernatremia; J90 Pleural effusion, not elsewhere classified; J96.11 Chronic respiratory failure with hypoxia; J44.9 Chronic obstructive pulmonary disease, unspecified; I70.0 Atherosclerosis of aorta; E87.8 Other disorders of electrolyte and fluid balance, not elsewhere classified; I35.0 Nonrheumatic aortic (valve) stenosis; E78.5 Hyperlipidemia, unspecified; I25.10 Atherosclerotic heart disease of native coronary artery without angina pectoris; Z82.3 Family history of stroke; R01.1 Cardiac murmur, unspecified; Z87.891 Personal history of nicotine dependence; N28.9 Disorder of kidney and ureter, unspecified
CPT/HCPCS: 36415; 71046; 80048; 82962; 83880; 84484; 85025; 85610; 85730; 87428; 93005; 93306; 93454; 94640; 97161; 97165; 97802; 99152; 99153; 99252; 99285; J7030; A4216; C1769; C1894; G0463; J1940; Q9967

== ENCOUNTER 2022-04-11 18:10 | Inpatient (IN) | payer MEDICARE, SELFPAY ==
[2022-04-11] VITALS (7 sets, daily range): BP systolic 170–178; BP diastolic 55–134; PULSE 79–98; RESP 19–30; TEMP 36.3–36.6; O2SAT 96–100; BMI 34.9; BMI 32.3
--- NOTE | 2022-04-11 19:01 | EKG12_ITS ---
Test Reason : DYSRHYTHMIA Blood Pressure : / mmHG Vent. Rate : 083 BPM Atrial Rate : 083 BPM P-R Int : 218 ms QRS Dur : 080 ms QT Int : 356 ms P-R-T Axes : 043 -10 010 degrees QTc Int : 418 ms Sinus rhythm with 1st degree A-V block Otherwise normal ECG Confirmed by JOSHUA CARRILLO, JACOB ([id number]), video tape editor GARRY DENNY ([id number]) on 04/12/2022 2:04:14 PM Referred By: BENJAMIN Confirmed By:JACOB LEWIS MD
--- NOTE | 2022-04-11 19:02 | EX.ED.DYSGE1 ---
HPI History of Present Illness Chief Complaint: Shortness of Breath Detail of Chief Complaint: Increase shortness of breath over the past several days Informant: patient Onset/Context/Timing Onset: Days Context: Gradual Onset Timing: Continuous Quality: Dyspnea, dyspnea on exertion, orthopnea Location: Not applicable Current Severity: Mild Maximum Severity: Severe Worsened by: Supine and walking Relieved by: Nothing Associated Symptoms Associated Symptoms: No chest discomfort Narrative Narrative: Patient is 81-year-old male. He is hard of hearing and is a poor informant. He informed that he had a cardiac catheterization this month. Review of prior records indicates he had a cardiac catheterization on March 15, 2022. The results are as follows: CORONARY ANGIOGRAPHY DOMINANCE:? Right Dominant LEFT HEART ASSESSMENT Left Ventricular Ejection Fraction: Not assessed Normal Left Ventricular End Diastolic Pressure LVEDP: 10 mmHg LEFT MAIN: Mild calcification, proximal: eccentric: 25 % Stenosis LEFT ANTERIOR DESCENDING ARTERY: Mild luminal irregularities PROX LAD: Mild calcification DIAGONAL 1: Proximal - Moderate calcification, Proximal - [place] with 50 % Stenosis CIRCUMFLEX ARTERY: PROX CIRC: Mild calcification, Mild luminal irregularities RIGHT CORONARY ARTERY: Mild luminal irregularities There was no significant abnormalities noted. Diagonal 1 had 50% stenosis. There were other areas with minimal stenosis of 25% and minimal luminal irregularities. Patient states he was instructed by his doctor to increase his Lasix. He discontinued his Lasix on . Said increased shortness of breath. He is on home oxygen at 2 L. He states he is sleeping in a chair at approximately 75 degree angle. He does report mild swelling of his legs. He denies chest discomfort. He denies fever, chills night sweats. He denies headache, visual, ocular auditory symptoms. He denies cough. He states he is able to walk around his residence. He denies nausea, vomiting diarrhea. Denies black or maroon-colored stool. He denies urologic symptoms. Prior similar symptoms: Yes Recent Illness/Hospitalization: Yes [facility] Medical History Aortic valve stenosis, acquired Atherosclerotic heart disease of [place] coronary artery without angina pectoris CAD (coronary artery disease) Chronic respiratory failure with hypoxia COPD (chronic obstructive pulmonary disease) COPD (chronic obstructive pulmonary disease) Debility Diabetes mellitus, type 2 Essential hypertension Former tobacco use History of left heart catheterization (LHC) (~03/15/22) HLD (hyperlipidemia) HTN (hypertension) Hypothyroidism Mild left ventricular hypertrophy Nonrheumatic aortic (valve) stenosis Obesity Polyarthralgia Home Medications atorvastatin 80 mg tablet 80 mg PO DAILY CHOLESTEROL 05/02/21 [History Last Taken 03/11/22] cholecalciferol (vitamin D3) 25 mcg (1,000 unit) capsule 25 mcg PO DAILY vitamin 05/02/21 [History Last Taken 03/11/22] glimepiride 4 mg tablet 4 mg PO DAILY diabetes 05/02/21 [History Last Taken 03/11/22] ipratropium 0.5 mg-albuterol 3 mg (2.5 mg base)/3 mL nebulization soln 3 ml inhalation 4X/DAY PRN sob 05/02/21 [History Last Taken 3 Days Ago ~12/10/21] liothyronine 25 mcg tablet 25 mcg PO DAILY THYROID 05/02/21 [History Last Taken 12/13/21] metformin 1,000 mg tablet 500 mg PO BID DM 05/02/21 [History Last Taken 03/11/22] omega-3 fatty acids-vitamin E 1,000 mg capsule 2 cap PO BID SUPPLEMENT 05/02/21 [History Last Taken 12/13/21] tiotropium bromide 18 mcg capsule with inhalation device (Spiriva with HandiHaler) 18 mcg inhalation DAILY SOB 05/02/21 [History Last Taken 03/11/22] vitamins A,C,C-mxgf-juwolu 4,296 mcg-226 mg-90 mg capsule (PreserVision AREDS) 1 cap PO BID vitamin 12/13/21 [History Last Taken 12/13/21] baclofen 10 mg tablet 10 mg PO TID PRN PRN Muscle Spasm 03/12/22 [History Last Taken Unknown] lisinopril 20 mg tablet (Zestril) 20 mg PO DAILY blood pressure 03/12/22 [History Last Taken Unknown] aspirin 81 mg chewable tablet 81 mg PO DAILY@0800 #30 tabs 03/16/22 [Rx Last Taken Unknown] carvedilol 6.25 mg tablet 6.25 mg PO BID #60 tabs 03/16/22 [Rx Last Taken Unknown] torsemide 10 mg tablet 10 mg PO DAILY Diuretic #1 TAB 03/16/22 [Rx Last Taken 03/11/22] Allergy/AdvReac Type Severity Reaction Status Date / Time codeine AdvReac Upset Verified 04/11/22 18:16 Stomach Family History Mother CVA (cerebral vascular accident) Heart disease Myocardial infarction Hx of CABG Hypertension Father CVA (cerebral vascular accident) Heart disease Surgical History S/P cataract extraction Social History household members: none housing: house Smoking Status: Former smoker how long ago did patient quit smoking: Quit 2011, prior 1 ppd since teen. alcohol intake: former year quit: 2010 substance use type: does not use ROS ROS ED Review of Systems ROS Unobtainable: other Details: Poor informant and hard of hearing Constitutional Constitutional ED: Denies chills, fever(s) or subjective Eyes Eyes: Denies blurry vision, change in vision or diplopia ENT ENT ED: Denies ear pain, rhinorrhea or sore throat Cardiovascular Cardiovascular: Reports orthopnea; Denies chest pain, palpitations, paroxysmal nocturnal dyspnea or racing heartbeat Respiratory/Chest Respiratory/Chest: Reports dyspnea on exertion and orthopnea; Denies cough or paroxysmal nocturnal dyspnea Gastrointestinal Gastrointestinal: Denies abdominal pain, melena, nausea or vomiting Genitourinary Genitourinary ED: Denies dysuria, hematuria or urinary frequency Musculoskeletal Musculoskeletal: Denies arthralgias, back pain, myalgias or neck pain Integumentary Denies abscess or rash Neurologic Neurologic: Denies headache(s), paresthesias or weakness Endocrine Endocrinology: Denies polydipsia, polyphagia or polyuria EXAM Physical Exam Const Vital Signs: 04/11/22 18:11 04/11/22 18:15 04/11/22 18:21 Temperature 97.8 F 97.8 F Temperature Source Temporal Temporal Pulse Rate 93 89 Respiratory Rate 30 H 30 H Respiratory Effort Short of Breath Respiratory Pattern Tachypnea Blood Pressure 170/134 H 170/134 H Blood Pressure Mean 146 146 Pulse Ox 98 99 Oxygen Delivery Method Nasal Cannula Nasal Cannula Nasal Cannula Oxygen Flow Rate (L/min) 4 4 4 04/11/22 18:23 04/11/22 20:18 Temperature Temperature Source Pulse Rate 91 79 Respiratory Rate 20 H 19 H Respiratory Effort Respiratory Pattern Blood Pressure 178/56 H 176/61 H Blood Pressure Mean 96 99 Pulse Ox 99 96 Oxygen Delivery Method Nasal Cannula Nasal Cannula Oxygen Flow Rate (L/min) 4 4 Positive well nourished, well developed and obese General Appearance ED: well developed, NAD and pallor; Negative for cyanotic or diaphoretic Nutritional Appearance: obese HEENT Reports moist mucous membranes HEENT Narrative: Patient is hard of hearing. Ears normal. Nares patent. Mucosa is moist. Uvula is midline. There is no oral edema or exudate the posterior pharynx. Eyes PERRL and EOMs intact bilaterally General Eye ED: Negative for pale conjunctiva or scleral icterus Neck no lymphadenopathy, supple and no JVD Neck Narrative: Trachea is midline. There is Tory expiratory stridor. Chest Wall inspection of chest normal and palpation of chest normal Resp normal respiratory effort and No clear to auscultation bilaterally Auscultation: rales bilateral 1/2 way up Cardio regular rate, regular rhythm, S1 normal heart sound, S2 normal heart sound and no murmurs GI normal to inspection, nondistended, normoactive bowel sounds, non-tender, non-distended and hepatosplenomegaly Back/Spine no CVA tenderness Back/Spine Narrative: Inspection of the back is unremarkable Extremity Extremity Narrative: Minimal edema of the feet and legs General Extremety ED: Yes edema; Negative for tenderness General Extremity: edema Neuro oriented x3, CN's II-XII intact bilaterally and no sensory deficits noted Sensorium / Orientation: alert Psych mental status grossly normal Skin no rashes or lesions noted, no wounds and skin turgor normal General Skin Exam: pallor; Negative for elasticity normal or jaundice MDM MDM MDM Narrative Medical decision making narrative: Cyst duct patient's dyspnea is due to heart failure due to noncompliance. Because he is elderly and has history of diabetes and minimal coronary disease will obtain troponin as well as BNP. EKG to rule out acute ischemia. Chest x-ray to confirm diagnosis of congestive heart failure. Since he has no complaint of fever, cough doubt pneumonia. Recent cardiac cath was reviewed and there is no significant disease. Lab Data Attestation: I reviewed the patient's lab results. Lab results narrative: Patient is anemic. His anemia is worse than prior lab results. Basic metabolic panel reveals elevated creatinine. His creatinine has improved and he will be due to the fact that he stopped taking his Lasix. BNP is elevated at 311. Troponin is 25 which is normal. This is with days of symptoms and was not repeated. Labs: Laboratory Results - last 24 hr 04/11/22 04/11/22 04/11/22 18:25 18:25 18:25 WBC 4.6 RBC 3.31 L Hgb 9.8 L Hct 31.9 L MCV 96.4 H MCH 29.6 MCHC 30.7 L RDW Std Deviation 48.2 H RDW Coeff of John 13.6 Plt Count 108 L MPV 11.2 Immature Gran % (Auto) 0.200 Neut % (Auto) 66.7 Lymph % (Auto) 22.4 [place] % (Auto) 6.0 Eos % (Auto) 4.3 Baso % (Auto) 0.4 Absolute Neuts (auto) 3.1 Absolute Lymphs (auto) 1.04 Nucleated RBC % 0 Sodium 145 Potassium 4.7 Chloride 110 H Carbon Dioxide 30.0 Anion Gap 5 BUN 25 H Creatinine 1.41 H Estim Creat Clear Calc 35.14 Est GFR (MDRD) Af Amer 62 Est GFR (MDRD) Non-Af 51 L BUN/Creatinine Ratio 17.7 Glucose 160 H Calcium 9.1 Troponin I High Sens 25 B-Natriuretic Peptide 311.3 H Radiography Chest X-Ray - ED: 1 View and Read by ED Physician (Single view chest x-ray reveals bilateral effusion and findings consistent with congestive heart failure. This is unchanged from chest x-ray that was obtained March 12.) Diagnostic Testing: Clinical Impression(s) from Imaging Studies Chest X-Ray 04/11/22 19:13 IMPRESSION: Bilateral effusions with bibasilar opacity which may represent atelectasis or pneumonia. There has been minimal change from the reference exam. Electronically Signed: Manuel Her MD at 19:44 EST , EKG Initial EKG: Attestation: I personally reviewed and interpreted this EKG as follows: Interpretation: Sinus Rhythm (Sinus rhythm with a ventricular rate of 83 and first-degree AV block. NE interval 218 ms. QRS duration 80 ms. QT duration 256 ms. [place] is normal. There is no acute ischemic changes noted) Treatment and Re-Evaluation Narrative: Patient did receive Lasix. Patient has not had any output. Patient has conversational dyspnea. He is now breathing 30 times a minute. Patient was told Lasix is not causing his shortness of breath or shortness of breath because he is not taking his Lasix. Discharge Plan Triage Chief Complaint: Shortness of Breath ED Provider: Dusty Yan Dx/Rx/DC Orders Clinical Impression: Acute exacerbation of CHF (congestive heart failure), HLD (hyperlipidemia), Bilateral pleural effusion, Renal insufficiency, Essential hypertension, Mild left ventricular hypertrophy, Nonrheumatic aortic (valve) stenosis, Chronic respiratory failure with hypoxia, History of CAD (coronary artery disease) Prescriptions: No Action atorvastatin 80 mg tablet 80 mg PO DAILY Label Comments: TAKE 1 TABLET BY MOUTH ONCE DAILY ipratropium-albuterol 0.5 mg-3 mg(2.5 mg base)/3 mL solution for nebulization 3 ml inhalation 4X/DAY PRN (Reason: sob) Label Comments: inhale contents of 1 vial ( 3 milliliters ) in nebulizer by mouth... (REFER TO PRESCRIPTION NOTES). liothyronine 25 mcg tablet 25 mcg PO DAILY Label Comments: TAKE 1 TABLET BY MOUTH ONCE DAILY FOR 90 DAYS metformin 1,000 mg tablet 500 mg PO BID glimepiride 4 mg tablet 4 mg PO DAILY Label Comments: TAKE 1 TABLET BY MOUTH ONCE DAILY Spiriva with HandiHaler 18 mcg capsule, w/inhalation device 18 mcg INHALATION DAILY Label Comments: INHALE THE CONTENTS OF 1 CAPSULE TWICE EACH TIME VIA HANDIHALER ONCE DAILY cholecalciferol (vitamin D3) 25 mcg (1,000 unit) Capsule 25 mcg PO DAILY omega-3 fatty acids-vitamin E 1,000 mg Capsule 2 cap PO BID PreserVision AREDS [id number] Capsule 1 cap PO BID lisinopril [Zestril] 20 mg tablet 20 mg PO DAILY Hold Instructions: Resume on 03/18/22. baclofen 10 mg tablet 10 mg PO TID PRN PRN (Reason: Muscle Spasm) Label Comments: TAKE 1 TABLET BY MOUTH THREE TIMES DAILY NEEDED FOR MUSCLE SPASMS carvedilol 6.25 mg Tablet 6.25 mg PO BID Qty: 60 0RF aspirin 81 mg Tablet,Chewable 81 mg PO DAILY@0800 Qty: 30 0RF torsemide 10 mg tablet 10 mg PO DAILY Qty: 1 0RF Primary Care Provider: Adrianna Nichols Referrals: Adrianna Nichols DO [Primary Care Provider] - Disposition Disposition: Acute Care Hospital [facility]
[2022-04-11] MEDS: Furosemide 40 MG/4 ML Vial IV (19:08)
--- NOTE | 2022-04-11 19:13 | RAD_ITS ---
EXAM: XR CHEST, 1 VIEW CLINICAL INDICATION: Dyspnea, orthopnea, bilateral rales TECHNIQUE: Frontal view of the chest. This report was created using [employer] report generation technology. COMPARISON: 03/12/2022 FINDINGS: LUNGS AND PLEURAL SPACES: There is blunting the costophrenic angles compatible small effusions. There is bibasilar airspace disease which may represent atelectasis or pneumonia. No pneumothorax. HEART: Unremarkable. Cardiac silhouette not enlarged. MEDIASTINUM: Central airways and mediastinal contour are unremarkable. BONES/JOINTS: See above. SOFT TISSUES: Unremarkable. RAD/Chest 1 View (Portable) IMPRESSION: Bilateral effusions with bibasilar opacity which may represent atelectasis or pneumonia. There has been minimal change from the reference exam. Electronically Signed: Manuel Her MD at 19:44 EST ,
[2022-04-11 19:20] LABS: Absolute Lymphocyte Count 1.04 X10^3/uL (0.83-4.51); Absolute Neutrophil Count 3.1 X10^3/uL (2.0-7.7); Basophil# 0.02 X10^3/uL; Basophil% 0.4 % (0-1); Eosinophils% 4.3 % (0-5); Hematocrit 31.9 % (40-54); Hemoglobin 9.8 g/dL (13.0-16.5); Lymphocyte # 1.04 X10^3/ul (0.83-4.51); Lymphocyte % 22.4 % (19-41); Mean Corp Hgb Conc 30.7 g/dL (32-36); Mean Corpuscular Hgb 29.6 pg (27.0-32.0); Mean Corpuscular Volume 96.4 fL (80-94); Mean Platelet Vol. 11.2 fl (6.2-12.0); Monocyte# 0.28 X10^3/uL; NRBC Flagged by Analyzer 0 % (0-5); Neutrophil # 3.09 X10^3/uL (2.7-7.7); Neutrophil % 66.7 % (47-70); Platelet Count 108 K/mm3 (150-450); RBC Distribution Width CV 13.6 % (11.6-14.6); RBC Distribution Width SD 48.2 fl (35.1-43.9); Red Blood Count 3.31 M/mm3 (4.6-6.2); White Blood Count 4.6 K/mm3 (4.4-11.0)
[2022-04-11 19:42] LABS: Anion Gap 5 (5-15); BUN 25 mg/dL (7-18); BUN/Creat Ratio 17.7 RATIO (10-20); Calcium,Total 9.1 mg/dL (8.5-10.1); Chloride 110 mmol/L (98-107); Creatinine, Serum 1.41 mg/dL (0.70-1.30); EST Glomerular Filtration Rate 51 mL/min (>60); Est Glom Filt Rate - Afr Amer 62 mL/min (>60); Estimated Creatinine Clearance 35.14 ml/min; Glucose 160 mg/dL (74-106); Potassium 4.7 mmol/L (3.5-5.1); Sodium Level 145 mmol/L (136-145); Troponin-I HS (w/2H Reflex) 25 pg/mL (3.0-78.0)
[2022-04-11 19:57] LABS: BNP,B-Type NATRIURETIC PEPTIDE 311.3 pg/mL (0-100)
--- NOTE | 2022-04-11 21:13 | PCM.HP.STD ---
HPI - General General Date of Admission: 04/11/22 Date of Service: 04/11/22 Chief Complaint: SOB - ongoing for a couple of days HPI Narrative BEULAH BRIGHT, is a 81 M who presents with the above. Patient has past medical history of heart failure with preserved EF, EF 65%, COPD, hypertension, hyperlipidemia, Type II DM who comes in with progressive shortness of breath ongoing for couple of days. Patient was recently discharged on 03/16/2022 with acute on chronic heart failure preserved EF as well as non-STEMI. Patient had a cardiac catheterization at that time which showed nonocclusive coronary artery disease. Since his discharge, patient stated that he had gained weight and was progressive shortness of breath. He had followed up with his primary care doctor and his torsemide was increased. He stated that he has worsening shortness of breath and difficulty swallowing when he takes double his torsemide dose. He told his primary care doctor who asked him to break the pills in half. Patient however did not do that. He called the EMS squad for worsening shortness of breath. He admits to gaining more than 10 kg of water weight. He denied eating out. He stated that he has been cooking at home. He lives alone. He admits to orthopnea and PND. Denied any chest pain or dizziness or palpitation. He is typically on 2 L of oxygen at home. His vitals in the ED showed blood pressure 170/134, heart rate 93, respiratory 30, temperature 97.8 F, oxygen sat was 98% on 4 L of oxygen. WBC 4.6, hemoglobin 9.8, down from previous 10.3, platelet count 108, which appears to be close to his baseline. Sodium 145, potassium 4.7, chloride 110, bicarbonate 30, BUN 25, creatinine 1.41, improved from previous currently at 2.05. BNP is 311.3. Admitting chest x-ray showed bilateral effusions and bibasilar opacities/atelectasis. [facility] Medical History Aortic valve stenosis, acquired Atherosclerotic heart disease of [place] coronary artery without angina pectoris CAD (coronary artery disease) Chronic respiratory failure with hypoxia COPD (chronic obstructive pulmonary disease) COPD (chronic obstructive pulmonary disease) Debility Diabetes mellitus, type 2 Essential hypertension Former tobacco use History of left heart catheterization (LHC) (~03/15/22) HLD (hyperlipidemia) HTN (hypertension) Hypothyroidism Mild left ventricular hypertrophy Nonrheumatic aortic (valve) stenosis Obesity Polyarthralgia Home Medications atorvastatin 80 mg tablet 80 mg PO DAILY CHOLESTEROL 05/02/21 [History Last Taken 03/11/22] cholecalciferol (vitamin D3) 25 mcg (1,000 unit) capsule 25 mcg PO DAILY vitamin 05/02/21 [History Last Taken 03/11/22] glimepiride 4 mg tablet 4 mg PO DAILY diabetes 05/02/21 [History Last Taken 03/11/22] ipratropium 0.5 mg-albuterol 3 mg (2.5 mg base)/3 mL nebulization soln 3 ml inhalation 4X/DAY PRN sob 05/02/21 [History Last Taken 3 Days Ago ~12/10/21] liothyronine 25 mcg tablet 25 mcg PO DAILY THYROID 05/02/21 [History Last Taken 12/13/21] metformin 1,000 mg tablet 500 mg PO BID DM 05/02/21 [History Last Taken 03/11/22] omega-3 fatty acids-vitamin E 1,000 mg capsule 2 cap PO BID SUPPLEMENT 05/02/21 [History Last Taken 12/13/21] tiotropium bromide 18 mcg capsule with inhalation device (Spiriva with HandiHaler) 18 mcg inhalation DAILY SOB 05/02/21 [History Last Taken 03/11/22] vitamins A,C,U-njex-epymur 4,296 mcg-226 mg-90 mg capsule (PreserVision AREDS) 1 cap PO BID vitamin 12/13/21 [History Last Taken 12/13/21] baclofen 10 mg tablet 10 mg PO TID PRN PRN Muscle Spasm 03/12/22 [History Last Taken Unknown] lisinopril 20 mg tablet (Zestril) 20 mg PO DAILY blood pressure 03/12/22 [History Last Taken Unknown] aspirin 81 mg chewable tablet 81 mg PO DAILY@0800 #30 tabs 03/16/22 [Rx Last Taken Unknown] carvedilol 6.25 mg tablet 6.25 mg PO BID #60 tabs 03/16/22 [Rx Last Taken Unknown] allopurinol 100 mg tablet 100 mg PO DAILY 04/11/22 [History Last Taken Unknown] torsemide 10 mg tablet 5 mg PO DAILY Diuretic 04/11/22 [History Last Taken Unknown] Allergy/AdvReac Type Severity Reaction Status Date / Time codeine AdvReac Upset Verified 04/11/22 18:16 Stomach Family History Mother CVA (cerebral vascular accident) Heart disease Myocardial infarction Hx of CABG Hypertension Father CVA (cerebral vascular accident) Heart disease Surgical History S/P cataract extraction Social History household members: none housing: house Smoking Status: Former smoker how long ago did patient quit smoking: Quit 2010, prior 1 ppd since teen. alcohol intake: former year quit: 2010 substance use type: does not use ROS ROS Narrative Constitutional: Reports: Malaise, Weakness, Fatigue. Denies: Anorexia, Chills, Fever, Night Sweats, Weight Change Eyes: Denies: Blurred vision, Cataracts, Conjunctivae Inflammation, Pain, Redness, Vision Change HEENT: Denies: Difficulty Hearing, Difficulty Swallowing, Head Aches, Hearing Changes, Sinus Congestion, Sinus Drainage Cardiovascular: See HPI Respiratory: Denies: See HPI Gastrointestinal: Denies: Abdominal Pain, Nausea, Vomiting Genitourinary: Denies: Dysuria Musculoskeletal: Denies: Joint Pain, Joint stiffness, Joint swelling, Joint Tenderness Skin: Denies: Rash, Wounds Neurological: Denies: Numbness, Tingling, Focal weakness Vital Signs Vital Signs Vital Signs: 04/11/22 18:11 04/11/22 18:15 04/11/22 18:21 Temperature 97.8 F 97.8 F Temperature Source Temporal Temporal Pulse Rate 93 89 Respiratory Rate 30 H 30 H Respiratory Effort Short of Breath Respiratory Pattern Tachypnea Blood Pressure 170/134 H 170/134 H Blood Pressure Mean 146 146 Pulse Ox 98 99 Oxygen Delivery Method Nasal Cannula Nasal Cannula Nasal Cannula Oxygen Flow Rate (L/min) 4 4 4 04/11/22 18:23 04/11/22 20:18 Temperature Temperature Source Pulse Rate 91 79 Respiratory Rate 20 H 19 H Respiratory Effort Respiratory Pattern Blood Pressure 178/56 H 176/61 H Blood Pressure Mean 96 99 Pulse Ox 99 96 Oxygen Delivery Method Nasal Cannula Nasal Cannula Oxygen Flow Rate (L/min) 4 4 Weight Weight: 95.1 kg Body Mass Index (BMI) 34.9 Physical Exam Narrative Physical exam: General: Alert, Oriented x3, Cooperative, obese, in mild respiratory distress with conversational dyspnea HEENT: Atraumatic Oral: Moist Mucosa Neck: Supple Lungs: Diminished to auscultation, crackles at the lung bases Cardiovascular: HS I+II, regular, no murmurs Abdomen: Bowel Sounds Present, Soft, Non Tender Extremities: Bilateral leg edema +1 Skin: No rashes, No breakdown Neurological: Grossly intact Psych/Mental Status: Appropriate Results Lab / Micro Data Result Diagrams: 04/11/22 18:25 04/11/22 18:25 Labs: Laboratory Results - last 24 hr 04/11/22 18:25: WBC 4.6, RBC 3.31 L, Hgb 9.8 L, Hct 31.9 L, MCV 96.4 H, MCH 29.6, MCHC 30.7 L, RDW Std Deviation 48.2 H, RDW Coeff of John 13.6, Plt Count 108 L, MPV 11.2, Immature Gran % (Auto) 0.200, Neut % (Auto) 66.7, Lymph % (Auto) 22.4, [place] % (Auto) 6.0, Eos % (Auto) 4.3, Baso % (Auto) 0.4, Absolute Neuts (auto) 3.1, Absolute Lymphs (auto) 1.04, Nucleated RBC % 0 04/11/22 18:25: Sodium 145, Potassium 4.7, Chloride 110 H, Carbon Dioxide 30.0, Anion Gap 5, BUN 25 H, Creatinine 1.41 H, Estim Creat Clear Calc 35.14, Est GFR (MDRD) Af Amer 62, Est GFR (MDRD) Non-Af 51 L, BUN/Creatinine Ratio 17.7, Glucose 160 H, Calcium 9.1, Troponin I High Sens 25 04/11/22 18:25: B-Natriuretic Peptide 311.3 H Radiology Impression Chest X-Ray 04/11/22 19:13 IMPRESSION: Bilateral effusions with bibasilar opacity which may represent atelectasis or pneumonia. There has been minimal change from the reference exam. Electronically Signed: Manuel Her MD at 19:44 EST , Assessment & Plan Assessment/Plan (1) Acute exacerbation of CHF (congestive heart failure): PLAN: Plan 1. Acute on chronic hypoxic respiratory failure secondary to acute exacerbation of heart failure with preserved EF Patient is currently on 4 to 5 L of oxygen, wears 2 L of oxygen at home Continue CHF protocol, wean off for SPO2 more than 94%, encourage use of incentive spirometer 2. Acute exacerbation of heart failure preserved EF, EF 65%, secondary to medication noncompliance Suspect dietary noncompliance Continue on IV Lasix 40 mg every 8 hours, daily weights, strict I's and O's 3. Hypertension/hyperlipidemia/history of recent non-STEMI Status postcardiac cath that showed nonocclusive coronary artery disease We will continue on home blood pressure meds and statin 4. CKD stage III, admitted creatinine 1.41, creatinine is close to the baseline of 1.3?1.4 We will trend labs to monitor renal function as CHF is being treated 5. Type II DM, on metformin and glimepiride, will hold these Continue with blood glucose checks with insulin sliding scale 6. Rest of chronic medical conditions including COPD, morbid obesity, complicates patient's overall management and care Patient is not in acute COPD exacerbation 7. DVT prophylaxis?heparin subcu Total time spent: 75 minutes of which more > 50% was spent in reviewing patient's chart, laboratory investigations, imaging, taking history from patient and physical examining him, talking to emergency room physician and nursing staff. Charges/Coding Visit Charges Inpatient E&M: 53075 Init Hosp L3
[2022-04-11 21:18] LABS: Reflex Troponin-HS? (from REC) Y
[2022-04-11 21:56] LABS: Troponin-I HS 27 pg/mL (3.0-78.0)
[2022-04-12] VITALS (10 sets, daily range): BP systolic 140–169; BP diastolic 46–84; PULSE 81–95; RESP 18–24; TEMP 36.6–37; O2SAT 92–100
[2022-04-12] MEDS: Heparin Injection (Vial) 5,000 UNIT/ML VIAL 5000 UNIT SC ×4 (00:19→21:02)
[2022-04-12] MEDS: Furosemide 40 MG/4 ML Vial IV ×4 (00:19→21:04)
[2022-04-12 07:30] LABS: Bedside Glucose 111 mg/dL (74-106)
[2022-04-12 10:28] LABS: Anion Gap 7 (5-15); BUN 27 mg/dL (7-18); BUN/Creat Ratio 17.5 RATIO (10-20); Calcium,Total 9.4 mg/dL (8.5-10.1); Chloride 102 mmol/L (98-107); Creatinine, Serum 1.54 mg/dL (0.70-1.30); EST Glomerular Filtration Rate 46 mL/min (>60); Est Glom Filt Rate - Afr Amer 56 mL/min (>60); Estimated Creatinine Clearance 32.17 ml/min; Glucose 291 mg/dL (74-106); Potassium 4.1 mmol/L (3.5-5.1); Sodium Level 143 mmol/L (136-145)
[2022-04-12 11:41] LABS: Bedside Glucose 205 mg/dL (74-106)
[2022-04-12 11:54] LABS: ALB/GLOB Ratio 0.8 RATIO (0.9-2.4); AST(SGOT) 20 U/L (15-37); Alanine Aminotransfer ALT/SGPT 21 U/L (16-61); Alkaline Phosphatase 77 U/L (45-117); Globulin 3.6 g/dL (2.2-4.2); Protein, Total 6.6 g/dL (6.4-8.2)
[2022-04-12 12:01] LABS: Absolute Lymphocyte Count 0.99 X10^3/uL (0.83-4.51); Absolute Neutrophil Count 3.4 X10^3/uL (2.0-7.7); Basophil# 0.01 X10^3/uL; Basophil% 0.2 % (0-1); Eosinophil# 0.19 X10^3/uL; Eosinophils% 3.9 % (0-5); Hemoglobin 10.7 g/dL (13.0-16.5); Lymphocyte # 0.99 X10^3/ul (0.83-4.51); Lymphocyte % 20.3 % (19-41); Mean Corp Hgb Conc 33.4 g/dL (32-36); Mean Corpuscular Hgb 31.6 pg (27.0-32.0); Mean Corpuscular Volume 94.4 fL (80-94); Mean Platelet Vol. 10.7 fl (6.2-12.0); Monocyte# 0.31 X10^3/uL; Monocyte% 6.4 % (0-10); NRBC Flagged by Analyzer 0 % (0-5); Neutrophil # 3.37 X10^3/uL (2.7-7.7); Platelet Count 117 K/mm3 (150-450); RBC Distribution Width CV 13.5 % (11.6-14.6); RBC Distribution Width SD 46.8 fl (35.1-43.9); Red Blood Count 3.39 M/mm3 (4.6-6.2); White Blood Count 4.9 K/mm3 (4.4-11.0)
--- NOTE | 2022-04-12 12:10 | PN.HOSP_ITS ---
Subjective Subjective Doing well, no issues overnight. He is breathing back to baseline and swelling is improving Objective Data Objective Data Vital Signs: Vital Signs Temp Pulse Resp BP Pulse Ox O2 Del Method O2 Flow Rate 98 F 91 20 H 140/46 H 95 Nasal Cannula 2 04/12/22 11:02 04/12/22 11:02 04/12/22 11:02 04/12/22 11:02 04/12/22 11:02 04/12/22 11:02 04/12/22 11:02 Oxygen Flow Rate (L/min) 2 Oxygen Delivery Method Nasal Cannula Weight: 194 lb 7.163 oz Body Mass Index (BMI) 32.3 Intake & Output: Intake and Output for Last 24 Hours 04/11/22 04/12/22 04/13/22 03:59 03:59 03:59 Output Total 900 / 900 1100 / 1100 Balance -900 / -900 -1100 / -1100 Lab / Micro Data Result Diagrams: 04/11/22 18:25 04/12/22 10:10 Labs: Laboratory Results - last 24 hr 04/11/22 18:25: WBC 4.6, RBC 3.31 L, Hgb 9.8 L, Hct 31.9 L, MCV 96.4 H, MCH 29.6, MCHC 30.7 L, RDW Std Deviation 48.2 H, RDW Coeff of John 13.6, Plt Count 108 L, MPV 11.2, Immature Gran % (Auto) 0.200, Neut % (Auto) 66.7, Lymph % (Auto) 22.4, [place] % (Auto) 6.0, Eos % (Auto) 4.3, Baso % (Auto) 0.4, Absolute Neuts (auto) 3.1, Absolute Lymphs (auto) 1.04, Nucleated RBC % 0 04/11/22 18:25: Sodium 145, Potassium 4.7, Chloride 110 H, Carbon Dioxide 30.0, Anion Gap 5, BUN 25 H, Creatinine 1.41 H, Estim Creat Clear Calc 35.14, Est GFR (MDRD) Af Amer 62, Est GFR (MDRD) Non-Af 51 L, BUN/Creatinine Ratio 17.7, Glucose 160 H, Calcium 9.1, Troponin I High Sens 25 04/11/22 18:25: B-Natriuretic Peptide 311.3 H 04/11/22 21:30: Troponin I High Sens 27 04/12/22 04:12: WBC Cancelled, Corrected WBC Cancelled, RBC Cancelled, Hgb Cancelled, Hct Cancelled, MCV Cancelled, MCH Cancelled, MCHC Cancelled, RDW Std Deviation Cancelled, RDW Coeff of John Cancelled, Plt Count Cancelled, MPV Cancelled, Immature Gran % (Auto) Cancelled, Neut % (Auto) Cancelled, Lymph % (Auto) Cancelled, [place] % (Auto) Cancelled, Eos % (Auto) Cancelled, Baso % (Auto) Cancelled, Absolute Neuts (auto) Cancelled, Absolute Lymphs (auto) Cancelled, Total Counted Cancelled, Neutrophils % (Manual) Cancelled, Band Neutrophils % Cancelled, Lymphocytes % (Manual) Cancelled, Monocytes % (Manual) Cancelled, Eo sinophils % (Manual) Cancelled, Basophils % (Manual) Cancelled, Metamyelocytes % Cancelled, Myelocytes % Cancelled, Promyelocytes % Cancelled, Blast Cells % Cancelled, Plasma Cell % (Manual) Cancelled, Other Cells % Cancelled, Nucleated RBC % Cancelled, Nucleated RBCs/100 WBC Cancelled, Differential Comment Cancelled, Diff Path Review Cancelled, Hypersegmented Neuts Cancelled, Atypical Lymphocytes Cancelled, Reactive Lymphocytes Cancelled, Smudge Cells Cancelled, Toxic Granulation Cancelled, Toxic Vacuolation Cancelled, Dohle Bodies Cancelled, Violet Rods Cancelled, Platelet Estimate Cancelled, Plt Morphology Comment Cancelled, RBC Morphology Cancelled, Polychromasia Cancelled, Hypochromasia Cancelled, Poikilocytosis Cancelled, Basophilic Stippling Cancelled, Anisocytosis Cancelled, Microcytosis Cancelled, Macrocytosis Cancelled, Spherocytes Cancelled, Sickle Cells Cancelled, Target Cells Cancelled, Tear Drop Cells Cancelled, Ovalocytes Cancelled, Stomatocytes Cancelled, Tobias-Hyrum Bodies Cancelled, [place] Cells Cancelled, Bite Cells Cancelled, Crenated Cell Cancelled, Acanthocytes (Spur) Cancelled, Rouleaux Cancelled, Schistocytes Cancelled 04/12/22 04:12: Sodium Cancelled, Potassium Cancelled, Chloride Cancelled, Carbon Dioxide Cancelled, Anion Gap Cancelled, BUN Cancelled, Creatinine Cancelled, Estim Creat Clear Calc Cancelled, Est GFR (MDRD) Af Amer Cancelled, Est GFR (MDRD) Non-Af Cancelled, BUN/Creatinine Ratio Cancelled, Glucose Cancelled, Calcium Cancelled, Total Bilirubin Cancelled, AST Cancelled, ALT Cancelled, Alkaline Phosphatase Cancelled, Total Protein Cancelled, Albumin Cancelled, Globulin Cancelled, Albumin/Globulin Ratio Cancelled 04/12/22 06:25: POC Glucose 111 H 04/12/22 10:10: Sodium 143, Potassium 4.1, Chloride 102, Carbon Dioxide 34.0 H, Anion Gap 7, BUN 27 H, Creatinine 1.54 H, Estim Creat Clear Calc 32.17, Est GFR (MDRD) Af Amer 56 L, Est GFR (MDRD) Non-Af 46 L, BUN/Creatinine Ratio 17.5, Glucose 291 H, Calcium 9.4, Total Bilirubin 0.60, AST 20, ALT 21, Alkaline Phosphatase 77, Total Protein 6.6, Albumin 3.0 L, Globulin 3.6, Albumin/Globulin Ratio 0.8 L 04/12/22 11:18: POC Glucose 205 H Radiography Diagnostic Testing: Radiology Impression Chest X-Ray 04/11/22 19:13 IMPRESSION: Bilateral effusions with bibasilar opacity which may represent atelectasis or pneumonia. There has been minimal change from the reference exam. Electronically Signed: Manuel Her MD at 19:44 EST Reading Location ID and State: [address] [place] [address] Tel , Service support , Physical Exam Narrative General: Alert, Oriented x3, Cooperative, No apparent distress HEENT: Atraumatic, PERRLA, EOMI, Normocephalic Oral: Moist Mucosa Neck: Supple, No JVD Lungs: Diminished, Normal air movement, No rhonchi, No wheeze, No rales Cardiovascular: Regular rate, Regular Rhythm, Normal S1, Normal S2, murmur Abdomen: Soft, Non Tender, Non-Distended, No Hepato-splenomegaly Extremities: edema, Capillary Refill Less than 3 Seconds Skin: No rashes, No breakdown Musculoskeletal: No Tenderness to Palpation of Joints or Extremities Neurological: Cranial nerves II-XII grossly intact, Motor Exam 5/5 strength throughout, Sensory exam intact to light touch and pain Psych/Mental Status: Normal Affect, Appropriate Assessment & Plan Assessment/Plan (1) Acute exacerbation of CHF (congestive heart failure): PLAN: Plan 1. Acute on chronic hypoxic respiratory failure secondary to acute exacerbation of heart failure with preserved EF/HTN/HLD/recent non-STEMI ?When he came in his oxygen requirements were at 4 to 5 L of oxygen when at home he uses 2 L at night ? She is down to about 2 L continuous, respiratory status appears improved compared to admission ? Continue with IV Lasix for diuresis I discussed with him the need to increase his torsemide as it had been previously, he says that his PCP had lowered it to 2.5 mg when he should have been taking 10 mg ? Recent echo with an EF of 65% ? He did have a cardiac cath that showed nonocclusive coronary artery disease 2. DM 2/CKD 3a ? We will hold his home medications ? Will place him on insulin ? Accu-Cheks ACHS ? We will make adjustments as necessary ? His creatinine is at baseline 5. Rest of chronic medical conditions including COPD, morbid obesity, complicates patient's overall management and care Patient is not in acute COPD exacerbation DVT: Heparin Charges/Coding Visit Charges Inpatient E&M: 38218 Subs Hosp L2
[2022-04-12] MEDS: Insulin Lispro 100 UNIT/ML INSULN.PEN SC ×2 (12:23→16:34)
[2022-04-12] MEDS: 0.9% Saline Lock 10 ML Syringe IV ×2 (14:08→21:05)
--- NOTE | 2022-04-12 15:25 | CASEMGMT ---
ALMA RINALDI chart review: Patient was admitted 03/12-03/16/22 for acute on chronic CHF. See ALMA RINALDI assessment from 03/14/22. Patient was discharged to home with follow-up plans in place. Patient returned to [facility] ED for increased SOB. Patient states he stopped taking his torsemide as it was causing his SOB. Patient is on home oxygen at 2-4lpm. ALMA RINALDI in to discuss why patient was not taking medications as prescribed, patient states he didn't take it as it was causing him to become short of breath. Patient states he followed with his PCP. ALMA RINALDI inquired if patient would be interested in [facility] to help with medication education and management. 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 ALMA RINALDI discussed Pallitaive care and gave information packet. Patient states he will think about it. CM will continue to follow this patient and assist with discharge planning.
[2022-04-12 17:05] LABS: Bedside Glucose 155 mg/dL (74-106)
[2022-04-13 02:00] LABS: Bedside Glucose 99 mg/dL (74-106)
[2022-04-13 05:00] VITALS: BP 155/57; PULSE 87; RESP 18; TEMP 36.5; O2SAT 99
[2022-04-13 05:14] LABS: Absolute Lymphocyte Count 1.63 X10^3/uL (0.83-4.51); Absolute Neutrophil Count 3.1 X10^3/uL (2.0-7.7); Basophil# 0.03 X10^3/uL; Basophil% 0.5 % (0-1); Eosinophil# 0.29 X10^3/uL; Eosinophils% 5.2 % (0-5); Hematocrit 33.6 % (40-54); Lymphocyte # 1.63 X10^3/ul (0.83-4.51); Lymphocyte % 29.3 % (19-41); Mean Corp Hgb Conc 32.7 g/dL (32-36); Mean Corpuscular Hgb 30.1 pg (27.0-32.0); Mean Corpuscular Volume 92.1 fL (80-94); Mean Platelet Vol. 10.7 fl (6.2-12.0); Monocyte# 0.49 X10^3/uL; Monocyte% 8.8 % (0-10); NRBC Flagged by Analyzer 0 % (0-5); Neutrophil # 3.12 X10^3/uL (2.7-7.7); Platelet Count 125 K/mm3 (150-450); RBC Distribution Width CV 13.2 % (11.6-14.6); RBC Distribution Width SD 44.9 fl (35.1-43.9); Red Blood Count 3.65 M/mm3 (4.6-6.2); White Blood Count 5.6 K/mm3 (4.4-11.0)
[2022-04-13] MEDS: Furosemide 40 MG/4 ML Vial IV (05:41)
[2022-04-13] MEDS: 0.9% Saline Lock 10 ML Syringe IV (05:41)
[2022-04-13] MEDS: Heparin Injection (Vial) 5,000 UNIT/ML VIAL 5000 UNIT SC (05:41)
[2022-04-13 05:59] LABS: Anion Gap 8 (5-15); BUN 37 mg/dL (7-18); BUN/Creat Ratio 24.5 RATIO (10-20); Calcium,Total 9.9 mg/dL (8.5-10.1); Chloride 100 mmol/L (98-107); Creatinine, Serum 1.51 mg/dL (0.70-1.30); EST Glomerular Filtration Rate 47 mL/min (>60); Est Glom Filt Rate - Afr Amer 57 mL/min (>60); Estimated Creatinine Clearance 32.81 ml/min; Glucose 133 mg/dL (74-106); Potassium 3.9 mmol/L (3.5-5.1); Sodium Level 143 mmol/L (136-145)
[2022-04-13 06:50] LABS: Bedside Glucose 140 mg/dL (74-106)
[2022-04-13 08:04] VITALS: O2SAT 98
[2022-04-13 09:49] VITALS: BP 152/64; PULSE 95; RESP 20; TEMP 36.6; O2SAT 97
--- NOTE | 2022-04-13 09:54 | PCM.DC ---
Discharge Instructions Diet Discharge Diet: Low fat / Low cholesterol, 6 Cup Fluid Restriction and Carb Control Diet Activity Discharge Activity: Return to Normal Activity Dressing / Incision Call your doctor if you observe: Fever of 101 or Higher, Shortness of breath, Dizziness, Fainting spells, Swelling in the ankles, Chest pain and Increased palpitations (irregular heartbeat) Follow Up Care Test Results: Test results from this visit will be discussed in further detail at your follow-up appointment, if applicable. Discharge Plan Admission Admit Date/Time: 04/11/22 21:01 Attending Provider: John Anders Primary Care Provider: Adrianna Nichols Consulting Providers: Ayesha Sainz Instructions Additional Instructions / Restrictions: Follow-up with your primary care doctor in 3 to 5 days as well as your product support technician within a month. It is important that you take the Lasix every day and I do recommend outpatient follow-up to monitor your kidney function. It is also important that you monitor your weight every day and if you notice a more than 3 to 5 pound weight gain call your primary care doctor or your product support technician about taking an extra Lasix dose. Discharge Orders/Prescriptions Prescriptions: New furosemide [Lasix] 40 mg tablet 40 mg PO DAILY Qty: 30 0RF Continued atorvastatin 80 mg tablet 80 mg PO DAILY Label Comments: TAKE 1 TABLET BY MOUTH ONCE DAILY ipratropium-albuterol 0.5 mg-3 mg(2.5 mg base)/3 mL solution for nebulization 3 ml inhalation 4X/DAY PRN (Reason: sob) Label Comments: inhale contents of 1 vial ( 3 milliliters ) in nebulizer by mouth... (REFER TO PRESCRIPTION NOTES). liothyronine 25 mcg tablet 25 mcg PO DAILY Label Comments: TAKE 1 TABLET BY MOUTH ONCE DAILY FOR 90 DAYS metformin 1,000 mg tablet 500 mg PO BID glimepiride 4 mg tablet 4 mg PO DAILY Label Comments: TAKE 1 TABLET BY MOUTH ONCE DAILY Spiriva with HandiHaler 18 mcg capsule, w/inhalation device 18 mcg INHALATION DAILY Label Comments: INHALE THE CONTENTS OF 1 CAPSULE TWICE EACH TIME VIA HANDIHALER ONCE DAILY cholecalciferol (vitamin D3) 25 mcg (1,000 unit) Capsule 25 mcg PO DAILY omega-3 fatty acids-vitamin E 1,000 mg Capsule 2 cap PO BID PreserVision AREDS [id number] Capsule 1 cap PO BID lisinopril [Zestril] 20 mg tablet 20 mg PO DAILY Hold Instructions: Resume on 03/18/22. carvedilol 6.25 mg tablet 6.25 mg PO DAILY aspirin 81 mg tablet,chewable 81 mg PO DAILY@0800 Discontinued torsemide 10 mg tablet 2.5 mg PO DAILY Referrals / Follow Up: Adrianna Nichols DO [Primary Care Provider] - Within 1 Week Emeka Blunt MD [Med Staff - Active Staff] - Within 1 Month Disposition Disposition (needs filled in before D/C Order can be placed): Home, Self Care
[2022-04-13 10:00] VITALS: RESP 20; O2SAT 97
--- NOTE | 2022-04-13 10:33 | DS.PCM_ITS ---
Providers Date of Admission: 04/11/22 Primary Care Physician: Dr. Adrianna Nichols, DO Reason For Visit: CHF Diagnosis Discharge Diagnosis (1) Acute exacerbation of CHF (congestive heart failure): Status: Chronic Code(s): I50.9 - Heart failure, unspecified Plan 1. Acute on chronic hypoxic respiratory failure secondary to acute exacerbation of heart failure with preserved EF/HTN/HLD/recent non-STEMI ?When he came in his oxygen requirements were at 4 to 5 L of oxygen when at home he uses 2 L at night ? She is down to about 2 L continuous, respiratory status appears improved compared to admission ? Continue with IV Lasix for diuresis I discussed with him the need to increase his torsemide as it had been previously, he says that his PCP had lowered it to 2.5 mg when he should have been taking 10 mg ? Recent echo with an EF of 65% ? He did have a cardiac cath that showed nonocclusive coronary artery disease 2. DM 2/CKD 3a ? We will hold his home medications ? Will place him on insulin ? Accu-Cheks ACHS ? We will make adjustments as necessary ? His creatinine is at baseline 5. Rest of chronic medical conditions including COPD, morbid obesity, complicates patient's overall management and care Patient is not in acute COPD exacerbation DVT: Heparin Medications at Discharge Home Medications atorvastatin 80 mg tablet 80 mg PO DAILY CHOLESTEROL 05/02/21 cholecalciferol (vitamin D3) 25 mcg (1,000 unit) capsule 25 mcg PO DAILY vitamin 05/02/21 glimepiride 4 mg tablet 4 mg PO DAILY diabetes 05/02/21 ipratropium 0.5 mg-albuterol 3 mg (2.5 mg base)/3 mL nebulization soln 3 ml inhalation 4X/DAY PRN sob 05/02/21 liothyronine 25 mcg tablet 25 mcg PO DAILY THYROID 05/02/21 metformin 1,000 mg tablet 500 mg PO BID DM 05/02/21 omega-3 fatty acids-vitamin E 1,000 mg capsule 2 cap PO BID SUPPLEMENT 05/02/21 tiotropium bromide 18 mcg capsule with inhalation device (Spiriva with HandiHaler) 18 mcg inhalation DAILY SOB 05/02/21 vitamins A,C,N-exel-tayehl 4,296 mcg-226 mg-90 mg capsule (PreserVision AREDS) 1 cap PO BID vitamin 12/13/21 lisinopril 20 mg tablet (Zestril) 20 mg PO DAILY blood pressure 03/12/22 aspirin 81 mg chewable tablet 81 mg PO DAILY@0800 anticoagulant 04/12/22 carvedilol 6.25 mg tablet 6.25 mg PO DAILY blood pressure 04/12/22 furosemide 40 mg tablet (Lasix) 40 mg PO DAILY #30 tabs 04/13/22 Hospital Course Operations None Procedures None Summary of Care Provided Minutes Spent on Discharge: 38 Hospital Course: Per HPI:BEULAH BRIGHT, is a 81 M who presents with the above.? Patient has past medical history of heart failure with preserved EF, EF 65%, COPD, hypertension, hyperlipidemia, Type II DM who comes in with progressive shortness of breath ongoing for couple of days.? Patient was recently discharged on 03/16/2022 with acute on chronic heart failure preserved EF as well as non- STEMI.? Patient had a cardiac catheterization at that time which showed nonocclusive coronary artery disease. Since his discharge, patient stated that he had gained weight and was progressive shortness of breath.? He had followed up with his primary care doctor and his torsemide was increased.? He stated that he has worsening shortness of breath and difficulty swallowing when he takes double his torsemide dose.? He told his primary care doctor who asked him to break the pills in half.? Patient however did not do that.? He called the EMS squad for worsening shortness of breath.? He admits to gaining more than 10 kg of water weight.? He denied eating out.? He stated that he has been cooking at home.? He lives alone.? He admits to orthopnea and PND.? Denied any chest pain or dizziness or palpitation.? He is typically on 2 L of oxygen at home. His vitals in the ED showed blood pressure 170/134, heart rate 93, respiratory 30, temperature 97.8 F, oxygen sat was 98% on 4 L of oxygen.? WBC 4.6, hemoglobin 9.8, down from previous 10.3, platelet count 108, which appears to be close to his baseline.? Sodium 145, potassium 4.7, chloride 110, bicarbonate 30, BUN 25, creatinine 1.41, improved from previous currently at 2.05.? BNP is 311.3. Admitting chest x-ray showed bilateral effusions and bibasilar opacities/atelectasis. Hospital Course: 1. Acute on chronic hypoxic respiratory failure secondary to acute exacerbation of heart failure with preserved EF/HTN/HLD/recent non-STEMI ?When he came in his oxygen requirements were at 4 to 5 L of oxygen when at home he uses 2 L at night ? He is down to about 2 L continuous, respiratory status appears improved compared to admission ? Continue with IV Lasix for diuresis I discussed with him the need to increase his torsemide as it had been previously, he says that his PCP had lowered it to 2.5 mg when he should have been taking 10 mg ? Recent echo with an EF of 65% ? He did have a cardiac cath that showed nonocclusive coronary artery disease in the beginning of March ? He is feeling much better today and I discussed with him the possibility for discharge as he has lost several pounds since he has been here and he expressed understanding of the risk and benefits of going home and he would like to go home today. I am not sure why his torsemide had been lowered to 2.5 mg however he says that he feels good on the Lasix so we will plan to discharge him on 40 of Lasix p.o. daily and I discussed with him the need to follow-up with his PCP in 3 to 5 days to monitor his renal function as well as taking his weights every day and if he does have an increase in weight by 3 to 5 pounds over a few days that he should call either his PCP or his sales assistant institutional sales about taking extra Lasix. We will do an ambulatory pulse ox prior to discharge, he does wear oxygen generally at night but has been needing it during the day here. 2.? DM 2/CKD 3a ? We will hold his home medications ? Will place him on insulin ? Accu-Cheks ACHS ? We will make adjustments as necessary ? His creatinine is at baseline 3.? Rest of chronic medical conditions including COPD, morbid obesity, complicates patient's overall management and care Patient is not in acute COPD exacerbation Physical Exam Narrative General: Alert, Oriented x3, Cooperative, No apparent distress HEENT: Atraumatic, PERRLA, EOMI, Normocephalic Oral: Moist Mucosa Neck: Supple, No JVD Lungs: Diminished, Normal air movement, No rhonchi, No wheeze, No rales Cardiovascular: Regular rate, Regular Rhythm, Normal S1, Normal S2, murmur Abdomen: Soft, Non Tender, Non-Distended, No Hepato-splenomegaly Extremities: Trace edema, Capillary Refill Less than 3 Seconds Skin: No rashes, No breakdown Musculoskeletal: No Tenderness to Palpation of Joints or Extremities Neurological: Cranial nerves II-XII grossly intact, Motor Exam 5/5 strength throughout, Sensory exam intact to light touch and pain Psych/Mental Status: Normal Affect, Appropriate Weight / BMI Weight Weight: 198 lb 3.129 oz Body Mass Index (BMI) 32.3 ABG / Lab / Microbiology Data Result Diagrams: 04/13/22 04:35 04/13/22 04:35 Laboratory: Laboratory Results - last 24 hr 04/12/22 04:12: WBC Cancelled, Corrected WBC Cancelled, RBC Cancelled, Hgb Cancelled, Hct Cancelled, MCV Cancelled, MCH Cancelled, MCHC Cancelled, RDW Std Deviation Cancelled, RDW Coeff of John Cancelled, Plt Count Cancelled, MPV Cancelled, Immature Gran % (Auto) Cancelled, Neut % (Auto) Cancelled, Lymph % (Auto) Cancelled, [place] % (Auto) Cancelled, Eos % (Auto) Cancelled, Baso % (Auto) Cancelled, Absolute Neuts (auto) Cancelled, Absolute Lymphs (auto) Cancelled, Total Counted Cancelled, Neutrophils % (Manual) Cancelled, Band Neutrophils % Cancelled, Lymphocytes % (Manual) Cancelled, Monocytes % (Manual) Cancelled, Eosinophils % (Manual) Cancelled, Basophils % (Manual) Cancelled, Metamyelocytes % Cancelled, Myelocytes % Cancelled, Promyelocytes % Cancelled, Blast Cells % Cancelled, Plasma Cell % (Manual) Cancelled, Other Cells % Cancelled, Nucleated RBC % Cancelled, Nucleated RBCs/100 WBC Cancelled, Differential Comment Cancelled, Diff Path Review Cancelled, Hypersegmented Neuts Cancelled, Atypical Lymphocytes Cancelled, Reactive Lymphocytes Cancelled, Smudge Cells Cancelled, Toxic Granulation Cancelled, Toxic Vacuolation Cancelled, Dohle Bodies Cancelled, Violet Rods Cancelled, Platelet Estimate Cancelled, Plt Morphology Comment Cancelled, RBC Morphology Cancelled, Polychromasia Cancelled, Hypochromasia Cancelled, Poikilocytosis Cancelled, Basophilic Stippling Cancel led, Anisocytosis Cancelled, Microcytosis Cancelled, Macrocytosis Cancelled, Spherocytes Cancelled, Sickle Cells Cancelled, Target Cells Cancelled, Tear Drop Cells Cancelled, Ovalocytes Cancelled, Stomatocytes Cancelled, Tobias-Ogden Bodies Cancelled, [place] Cells Cancelled, Bite Cells Cancelled, Crenated Cell Cancelled, Acanthocytes (Spur) Cancelled, Rouleaux Cancelled, Schistocytes Cancelled 04/12/22 04:12: Sodium Cancelled, Potassium Cancelled, Chloride Cancelled, Carbon Dioxide Cancelled, Anion Gap Cancelled, BUN Cancelled, Creatinine Cancelled, Estim Creat Clear Calc Cancelled, Est GFR (MDRD) Af Amer Cancelled, Est GFR (MDRD) Non-Af Cancelled, BUN/Creatinine Ratio Cancelled, Glucose Cancelled, Calcium Cancelled, Total Bilirubin Cancelled, AST Cancelled, ALT Cancelled, Alkaline Phosphatase Cancelled, Total Protein Cancelled, Albumin Cancelled, Globulin Cancelled, Albumin/Globulin Ratio Cancelled 04/12/22 10:10: Sodium 143, Potassium 4.1, Chloride 102, Carbon Dioxide 34.0 H, Anion Gap 7, BUN 27 H, Creatinine 1.54 H, Estim Creat Clear Calc 32.17, Est GFR (MDRD) Af Amer 56 L, Est GFR (MDRD) Non-Af 46 L, BUN/Creatinine Ratio 17.5, Glucose 291 H, Calcium 9.4, Total Bilirubin 0.60, AST 20, ALT 21, Alkaline Phosphatase 77, Total Protein 6.6, Albumin 3.0 L, Globulin 3.6, Albumin/Globulin Ratio 0.8 L 04/12/22 11:18: POC Glucose 205 H 04/12/22 11:50: WBC 4.9, RBC 3.39 L, Hgb 10.7 L, Hct 32.0 L, MCV 94.4 H, MCH 31.6, MCHC 33.4 D, RDW Std Deviation 46.8 H, RDW Coeff of John 13.5, Plt Count 117 L, MPV 10.7, Immature Gran % (Auto) 0.200, Neut % (Auto) 69.0, Lymph % (Auto) 20.3, [place] % (Auto) 6.4, Eos % (Auto) 3.9, Baso % (Auto) 0.2, Absolute Neuts (auto) 3.4, Absolute Lymphs (auto) 0.99, Nucleated RBC % 0 04/12/22 16:32: POC Glucose 155 H 04/12/22 20:53: POC Glucose 99 04/13/22 04:35: WBC 5.6, RBC 3.65 L, Hgb 11.0 L, Hct 33.6 L, MCV 92.1, MCH 30.1, MCHC 32.7, RDW Std Deviation 44.9 H, RDW Coeff of John 13.2, Plt Count 125 L, MPV 10.7, Immature Gran % (Auto) 0.200, Neut % (Auto) 56.0, Lymph % (Auto) 29.3, [place] % (Auto) 8.8, Eos % (Auto) 5.2 H, Baso % (Auto) 0.5, Absolute Neuts (auto) 3.1, Absolute Lymphs (auto) 1.63, Nucleated RBC % 0 04/13/22 04:35: Sodium 143, Potassium 3.9, Chloride 100, Carbon Dioxide 35.0 H, Anion Gap 8, BUN 37 H, Creatinine 1.51 H, Estim Creat Clear Calc 32.81, Est GFR (MDRD) Af Amer 57 L, Est GFR (MDRD) Non-Af 47 L, BUN/Creatinine Ratio 24.5 H, Glucose 133 H, Calcium 9.9 04/13/22 05:49: POC Glucose 140 H D/C Instructions Discharge Diet: Low fat / Low cholesterol, 6 Cup Fluid Restriction and Carb Control Diet Call your doctor if you observe: Fever of 101 or Higher, Shortness of breath, Dizziness, Fainting spells, Swelling in the ankles, Chest pain and Increased palpitations (irregular heartbeat) Meaningful Use Info Meaningful Use Diagnoses (Choose all that apply): None applicable Discharge Plan Admission Admit Date/Time: 04/11/22 21:01 Attending Provider: John Anders Primary Care Provider: Adrianna Nichols Consulting Providers: Ayesha Sainz Instructions Additional Instructions / Restrictions: Follow-up with your primary care doctor in 3 to 5 days as well as your sales assistant institutional sales within a month. It is important that you take the Lasix every day and I do recommend outpatient follow-up to monitor your kidney function. It is also important that you monitor your weight every day and if you notice a more than 3 to 5 pound weight gain call your primary care doctor or your sales assistant institutional sales about taking an extra Lasix dose. Discharge Orders/Prescriptions Prescriptions: New furosemide [Lasix] 40 mg tablet 40 mg PO DAILY Qty: 30 0RF Continued atorvastatin 80 mg tablet 80 mg PO DAILY Label Comments: TAKE 1 TABLET BY MOUTH ONCE DAILY ipratropium-albuterol 0.5 mg-3 mg(2.5 mg base)/3 mL solution for nebulization 3 ml inhalation 4X/DAY PRN (Reason: sob) Label Comments: inhale contents of 1 vial ( 3 milliliters ) in nebulizer by mouth... (REFER TO PRESCRIPTION NOTES). liothyronine 25 mcg tablet 25 mcg PO DAILY Label Comments: TAKE 1 TABLET BY MOUTH ONCE DAILY FOR 90 DAYS metformin 1,000 mg tablet 500 mg PO BID glimepiride 4 mg tablet 4 mg PO DAILY Label Comments: TAKE 1 TABLET BY MOUTH ONCE DAILY Spiriva with HandiHaler 18 mcg capsule, w/inhalation device 18 mcg INHALATION DAILY Label Comments: INHALE THE CONTENTS OF 1 CAPSULE TWICE EACH TIME VIA HANDIHALER ONCE DAILY cholecalciferol (vitamin D3) 25 mcg (1,000 unit) Capsule 25 mcg PO DAILY omega-3 fatty acids-vitamin E 1,000 mg Capsule 2 cap PO BID PreserVision AREDS [id number] Capsule 1 cap PO BID lisinopril [Zestril] 20 mg tablet 20 mg PO DAILY Hold Instructions: Resume on 03/18/22. carvedilol 6.25 mg tablet 6.25 mg PO DAILY aspirin 81 mg tablet,chewable 81 mg PO DAILY@0800 Discontinued torsemide 10 mg tablet 2.5 mg PO DAILY Referrals / Follow Up: Adrianna Nichols DO [Primary Care Provider] - 04/19/22 1:30 pm Bart Galo NP, VOLUNTEER MANAGER-C [Med Staff - [facility]] - 05/02/22 10:00 am Disposition Disposition (needs filled in before D/C Order can be placed): Home, Self Care Charges/Coding Visit Charges Inpatient E&M: 05595 Disch Hosp >30min
[2022-04-13] MEDS: Insulin Lispro 100 UNIT/ML INSULN.PEN SC (11:01)
[2022-04-13 11:07] VITALS: O2SAT 87; O2SAT 91; O2SAT 97
[2022-04-13 11:20] LABS: Bedside Glucose 184 mg/dL (74-106)
--- NOTE | 2022-04-13 11:31 | CASEMGMT ---
ALMA RINALDI in discuss needs at discharge. Patient is declining HHC, CCN, and palliative at this time. ALMA RINALDI informed patient that should he reconsider HHC or palliative that he can follow-up with his PCP, patient voiced understanding. ALMA RINALDI inquired if patient's daughter would be picking him up and to bring his portable oxygen at home. Patient states that his friend is picking him up and can not get his oxygen at home for discharge. ALMA RINALDI educated patient on the importance of wearing his home oxygen continuously and risks associated with not wearing his oxygen at discharge. Patient states he will be fine and only has 7 miles to go home and will put his oxygen on as soon as he gets home. ALMA RINALDI updated patient's nurse regarding testing patient on room air. CM will continue to follow this patient and plan for a safe discharge.
[2022-04-13 11:43] VITALS: O2SAT 94
--- NOTE | 2022-04-13 12:45 | CASEMGMT ---
A list of [facility] providers including quality and resource use data and consistent with the patient?s preferred geographical region, medical needs, and insurance network were provided from the [employer] Guide. Patient states he will review and discuss with PCP. Patient had no further questions at this time.
== END 2022-04-13 13:21 | disposition home or self-care (01) | DRG 291 ==
LOC: ED 21:29 → PCU 22:45
PROVIDERS: Admitting Provider Internal Medicine; Emergency Provider Emergency Medicine; PCP Family Medicine; Visit Provider Family Medicine
DX: I13.0 Hypertensive heart and chronic kidney disease with heart failure and stage 1 through stage 4 chronic kidney disease, or unspecified chronic kidney disease (principal); J96.21 Acute and chronic respiratory failure with hypoxia; I50.33 Acute on chronic diastolic (congestive) heart failure; J90 Pleural effusion, not elsewhere classified; J98.11 Atelectasis; E11.22 Type 2 diabetes mellitus with diabetic chronic kidney disease; Z79.4 Long term (current) use of insulin; J44.9 Chronic obstructive pulmonary disease, unspecified; N18.31 Chronic kidney disease, stage 3a; E66.01 Morbid (severe) obesity due to excess calories; E78.5 Hyperlipidemia, unspecified; I25.10 Atherosclerotic heart disease of native coronary artery without angina pectoris; I25.2 Old myocardial infarction; Z82.3 Family history of stroke; Z79.82 Long term (current) use of aspirin; Z87.891 Personal history of nicotine dependence; H91.90 Unspecified hearing loss, unspecified ear; Z91.119 Patient's noncompliance with dietary regimen due to unspecified reason; Z60.2 Problems related to living alone; Z68.32 Body mass index [BMI] 32.0-32.9, adult
CPT/HCPCS: 36415; 71045; 80048; 80053; 82962; 83880; 84484; 85025; 93005; 94668; 99252; 99285; A4216; G0463; J1940

== ENCOUNTER 2022-05-24 11:07 | Observation (INO) | payer MEDICARE, SELFPAY ==
[2022-05-24] VITALS (13 sets, daily range): BP systolic 146–193; BP diastolic 49–81; PULSE 88–108; RESP 20–36; TEMP 36.6–37.6; O2SAT 94–100; BMI 33.1; BMI 31.5
--- NOTE | 2022-05-24 11:52 | EKG12_ITS ---
Test Reason : SOB Blood Pressure : / mmHG Vent. Rate : 100 BPM Atrial Rate : 100 BPM P-R Int : 204 ms QRS Dur : 084 ms QT Int : 328 ms P-R-T Axes : 055 -12 043 degrees QTc Int : 423 ms Normal sinus rhythm Nonspecific ST abnormality Abnormal ECG Confirmed by MATIAS CARRILLO, LUIS F ([id number]), editorial cartoonist ZACKARY MARTINEZ ([id number]) on 05/26/2022 6:56:22 AM Referred By: NADER Confirmed By:CHIN SALCEDO MD
--- NOTE | 2022-05-24 11:53 | EX.ED.DYSGE1 ---
HPI History of Present Illness Chief Complaint: Shortness of Breath Informant: patient Onset/Context/Timing Onset: Today Narrative Narrative: Patient presents via EMS secondary to shortness of breath. He wears 2 L of oxygen all the time. He drove a friend to the dentist this morning and was waiting in the car. He rather abruptly became short of breath. He turned his oxygen up but did not note any improvement. There is some question as to whether the oxygen tubing may have been kinked. He called 911 and EMS placed him on a nonrebreather. At this time he reports some improvement but not back to baseline. He denies any chest pain. [facility] Medical History Acute exacerbation of CHF (congestive heart failure) Aortic valve stenosis, acquired Atherosclerotic heart disease of [place] coronary artery without angina pectoris CAD (coronary artery disease) Chronic respiratory failure with hypoxia COPD (chronic obstructive pulmonary disease) Debility Diabetes mellitus, type 2 Former tobacco use History of left heart catheterization (LHC) (~03/15/22) HLD (hyperlipidemia) HTN (hypertension) Hypothyroidism Mild left ventricular hypertrophy Nonrheumatic aortic (valve) stenosis Obesity Polyarthralgia Home Medications atorvastatin 80 mg tablet 80 mg PO DAILY CHOLESTEROL 05/02/21 [History Last Taken 04/11/22] cholecalciferol (vitamin D3) 25 mcg (1,000 unit) capsule 25 mcg PO DAILY vitamin 05/02/21 [History Last Taken 04/11/22] glimepiride 4 mg tablet 2 mg PO DAILY diabetes 05/02/21 [History Last Taken 04/11/22] ipratropium 0.5 mg-albuterol 3 mg (2.5 mg base)/3 mL nebulization soln 3 ml inhalation 4X/DAY PRN sob 05/02/21 [History Last Taken 3 Days Ago ~12/10/21] liothyronine 25 mcg tablet 25 mcg PO DAILY THYROID 05/02/21 [History Last Taken 12/13/21] metformin 1,000 mg tablet 500 mg PO BID DM 05/02/21 [History Last Taken 04/11/22] omega-3 fatty acids-vitamin E 1,000 mg capsule 2 cap PO BID SUPPLEMENT 05/02/21 [History Last Taken 04/11/22] tiotropium bromide 18 mcg capsule with inhalation device (Spiriva with HandiHaler) 18 mcg inhalation DAILY SOB 05/02/21 [History Last Taken 04/11/22] vitamins A,C,D-capa-hhyfqw 4,296 mcg-226 mg-90 mg capsule (PreserVision AREDS) 1 cap PO BID vitamin 12/13/21 [History Last Taken 04/11/22] lisinopril 20 mg tablet (Zestril) 20 mg PO DAILY blood pressure 03/12/22 [History Last Taken Unknown] aspirin 81 mg chewable tablet 81 mg PO DAILY@0800 anticoagulant 04/12/22 [History Last Taken 04/11/22] carvedilol 6.25 mg tablet 6.25 mg PO DAILY blood pressure 04/12/22 [History Last Taken Unknown] amlodipine 5 mg tablet 5 mg PO DAILY #90 tabs 05/02/22 [Rx Last Taken Unknown] furosemide 40 mg tablet (Lasix) 20 mg PO DAILY 05/24/22 [History Last Taken Unknown] Allergy/AdvReac Type Severity Reaction Status Date / Time codeine AdvReac Upset Verified 05/24/22 11:08 Stomach Family History Mother CVA (cerebral vascular accident) Heart disease Myocardial infarction Hx of CABG Hypertension Father CVA (cerebral vascular accident) Heart disease Surgical History S/P cataract extraction Social History household members: none housing: house Smoking Status: Former smoker how long ago did patient quit smoking: Quit 2011, prior 1 ppd since teen. alcohol intake: former year quit: 2010 substance use type: does not use ROS ROS ED Constitutional Constitutional ED: Denies chills or fever(s) Eyes Eyes: Denies change in vision or discharge from eye(s) ENT ENT ED: Denies discharge from eye(s), rhinorrhea or sore throat Cardiovascular Cardiovascular: Denies chest pain or palpitations Respiratory/Chest Respiratory/Chest: Reports dyspnea; Denies cough Gastrointestinal Gastrointestinal: Denies abdominal pain, nausea or vomiting Genitourinary Genitourinary ED: Denies dysuria Musculoskeletal Musculoskeletal: Denies back pain or extremity pain Integumentary Denies Abrasions or rash Neurologic Neurologic: Denies headache(s) or weakness Psychiatric Psychiatric: Denies anxiety or depression Allergic/Immunologic Allergic/Immunologic ED: Denies lip swelling or urticaria EXAM Physical Exam Const Vital Signs: 05/24/22 11:08 05/24/22 11:14 05/24/22 11:16 Temperature 99.6 F H Temperature Source Temporal Pulse Rate 105 H 106 H Respiratory Rate 36 H 36 H Respiratory Effort Short of Breath Labored Respiratory Pattern Tachypnea Blood Pressure 193/64 H Blood Pressure Mean 107 Pulse Ox 100 99 Oxygen Delivery Method Nasal Cannula Nasal Cannula Oxygen Flow Rate (L/min) 4 3 05/24/22 12:22 05/24/22 13:01 05/24/22 14:05 Temperature Temperature Source Pulse Rate 101 H 100 97 Respiratory Rate 28 H 26 H 26 H Respiratory Effort Respiratory Pattern Blood Pressure 146/81 H 148/61 H 175/60 H Blood Pressure Mean 102 90 98 Pulse Ox 96 96 99 Oxygen Delivery Method Nasal Cannula Room Air Nasal Cannula Oxygen Flow Rate (L/min) 3 3 Positive well nourished and well developed General Appearance ED: well developed HEENT Reports normocephalic and head/scalp atraumatic Eyes PERRL and EOMs intact bilaterally Neck supple Chest Wall inspection of chest normal and palpation of chest normal Resp Resp Narrative: Patient mildly tachypneic with respiratory rate of 24 at the time of my exam. Lung sounds diminished at the bases. Cardio regular rhythm Rate: tachycardic GI normal to inspection, nondistended, normoactive bowel sounds Palpation: soft Extremity normal to inspection Neuro oriented x3 Neuro Narrative: No focal neurologic deficit. Sensorium / Orientation: alert Psych mental status grossly normal Skin no rashes or lesions noted MDM MDM MDM Narrative Medical decision making narrative: Patient placed on monitoring tech. EKG obtained to evaluate for cardiac arrhythmia/ischemia. Chest x-ray obtained to evaluate for acute lung pathology, cardiac size, or mediastinal abnormality. Labwork obtained to evaluate for leukocytosis, anemia, and electrolyte derangement. Troponin obtained to evaluate for cardiac ischemia. BNP ordered to evaluate for congentive heart failure. History & Record Review Discussion w/independent historian: EMS personnel Additional record(s) reviewed:: Prior inpatient record, Prior outpatient record, Prior ED visit and Prior labs Lab Data Attestation: I reviewed the patient's lab results. Labs: Laboratory Results - last 24 hr 05/24/22 05/24/22 05/24/22 11:19 11:19 11:19 WBC 10.4 RBC 3.21 L Hgb 9.7 L Hct 30.9 L MCV 96.3 H MCH 30.2 MCHC 31.4 L RDW Std Deviation 45.9 H RDW Coeff of John 13.3 Plt Count 123 L MPV 10.8 Immature Gran % (Auto) 0.300 Neut % (Auto) 80.1 H Lymph % (Auto) 10.9 L [place] % (Auto) 5.4 Eos % (Auto) 2.9 Baso % (Auto) 0.4 Absolute Neuts (auto) 8.4 H Absolute Lymphs (auto) 1.14 Nucleated RBC % 0 Sodium 144 Potassium 4.3 Chloride 106 Carbon Dioxide 32.0 Anion Gap 6 BUN 45 H Creatinine 1.47 H Estim Creat Clear Calc 33.70 Est GFR (MDRD) Af Amer 59 L Est GFR (MDRD) Non-Af 49 L BUN/Creatinine Ratio 30.6 H Glucose 178 H Calcium 9.5 Troponin I High Sens 31 B-Natriuretic Peptide 200.1 H 05/24/22 14:10 WBC RBC Hgb Hct MCV MCH MCHC RDW Std Deviation RDW Coeff of John Plt Count MPV Immature Gran % (Auto) Neut % (Auto) Lymph % (Auto) [place] % (Auto) Eos % (Auto) Baso % (Auto) Absolute Neuts (auto) Absolute Lymphs (auto) Nucleated RBC % Sodium Potassium Chloride Carbon Dioxide Anion Gap BUN Creatinine Estim Creat Clear Calc Est GFR (MDRD) Af Amer Est GFR (MDRD) Non-Af BUN/Creatinine Ratio Glucose Calcium Troponin I High Sens 56 B-Natriuretic Peptide Radiography Chest X-Ray - ED: 1 View, Read by ED Physician and - (Chronic changes bilateral bases concerning for pulmonary edema. Similar appearance to prior chest x-ray.) Diagnostic Testing: Clinical Impression(s) from Imaging Studies Chest X-Ray 05/24/22 11:55 IMPRESSION: Residual or recurrent pneumonia of the lower lobes of both lungs. Electronically Signed: Yogesh Stokes MD at 12:39 EDT , EKG Initial EKG: Attestation: I personally reviewed and interpreted this EKG as follows: Interpretation: Sinus Rhythm (Sinus at [address] changes. No evidence of acute ischemia.) Management Discussion w/another healthcare provider: Hospitalist Treatment and Re-Evaluation :: CBC reveals normal white count. Hemoglobin 9.7, slightly down from his most recent labs, however. Chemistry studies reveal a BUN of 45 and creatinine 1.47. Again this is near his baseline. Initial troponin is 31 and 2-hour repeat troponin is 56. While patient's troponin did rise 25 points both values are still within normal limits. His BNP is 200. Chest x-ray per my interpretation appears to show chronic changes with bilateral mild pulmonary edema. This does appear consistent with his last chest x-ray. Radiology interpretation is reviewed. Patient has no sign of pneumonia with no significant cough, fever, or white count. I did review patient's prior cardiac records and he had a cardiac catheterization in March of this year that did not show significant disease. On repeat evaluation patient remains tachypneic with respiratory rate around 30 at this time. He does have conversational dyspnea. Given this I will give him 40 mg of IV Lasix and speak with hospitalist regarding admission. Patient states that there has been some debate between his countersinker and primary care physician about how much Lasix he is supposed to be on. His countersinker wanted him on 40 mg daily, however his primary care physician stated that this caused worse renal function and for the past week he is only been taking 20 mg a day. I believe this is likely what led to the patient's dyspnea and fluid overload. Discharge Plan Triage Chief Complaint: Shortness of Breath ED Provider: Yumiko Edward Dx/Rx/DC Orders Clinical Impression: CHF (congestive heart failure) Prescriptions: No Action amlodipine 5 mg tablet 5 mg PO DAILY Qty: 90 3RF atorvastatin 80 mg tablet 80 mg PO DAILY Label Comments: TAKE 1 TABLET BY MOUTH ONCE DAILY ipratropium-albuterol 0.5 mg-3 mg(2.5 mg base)/3 mL solution for nebulization 3 ml inhalation 4X/DAY PRN (Reason: sob) Label Comments: inhale contents of 1 vial ( 3 milliliters ) in nebulizer by mouth... (REFER TO PRESCRIPTION NOTES). liothyronine 25 mcg tablet 25 mcg PO DAILY Label Comments: TAKE 1 TABLET BY MOUTH ONCE DAILY FOR 90 DAYS metformin 1,000 mg tablet 500 mg PO BID glimepiride 4 mg tablet 2 mg PO DAILY Label Comments: TAKE 1 TABLET BY MOUTH ONCE DAILY Spiriva with HandiHaler 18 mcg capsule, w/inhalation device 18 mcg INHALATION DAILY Label Comments: INHALE THE CONTENTS OF 1 CAPSULE TWICE EACH TIME VIA HANDIHALER ONCE DAILY cholecalciferol (vitamin D3) 25 mcg (1,000 unit) Capsule 25 mcg PO DAILY omega-3 fatty acids-vitamin E 1,000 mg Capsule 2 cap PO BID PreserVision AREDS [id number] Capsule 1 cap PO BID lisinopril [Zestril] 20 mg tablet 20 mg PO DAILY Hold Instructions: Resume on 03/18/22. carvedilol 6.25 mg tablet 6.25 mg PO DAILY aspirin 81 mg tablet,chewable 81 mg PO DAILY@0800 furosemide [Lasix] 40 mg tablet 20 mg PO DAILY Primary Care Provider: Adrianna Nichols Referrals: Adrianna Nichols DO [Primary Care Provider] - Disposition Disposition: Acute Care Hospital [facility]
--- NOTE | 2022-05-24 11:55 | RAD_ITS ---
EXAM: XR CHEST, 1 VIEW CLINICAL INDICATION: sob TECHNIQUE: Frontal view of the chest. This report was created using [employer] report generation technology. COMPARISON: XR Chest dated 04/11/2022 FINDINGS: LUNGS AND PLEURAL SPACES: Resolution of previously noted pleural effusions. Persistent or recurrent bibasilar pneumonia. No pneumothorax. HEART: Normal heart size. MEDIASTINUM: No mediastinal or hilar mass. BONES/JOINTS: No acute abnormality. SOFT TISSUES: Normal. RAD/Chest 1 View (Portable) IMPRESSION: Residual or recurrent pneumonia of the lower lobes of both lungs. Electronically Signed: Yogesh Stokes MD at 12:39 EDT ,
[2022-05-24 12:04] LABS: Absolute Lymphocyte Count 1.14 X10^3/uL (0.83-4.51); Absolute Neutrophil Count 8.4 X10^3/uL (2.0-7.7); Basophil# 0.04 X10^3/uL; Basophil% 0.4 % (0-1); Eosinophils% 2.9 % (0-5); Hematocrit 30.9 % (40-54); Hemoglobin 9.7 g/dL (13.0-16.5); Lymphocyte # 1.14 X10^3/ul (0.83-4.51); Lymphocyte % 10.9 % (19-41); Mean Corp Hgb Conc 31.4 g/dL (32-36); Mean Corpuscular Hgb 30.2 pg (27.0-32.0); Mean Corpuscular Volume 96.3 fL (80-94); Mean Platelet Vol. 10.8 fl (6.2-12.0); Monocyte# 0.56 X10^3/uL; Monocyte% 5.4 % (0-10); NRBC Flagged by Analyzer 0 % (0-5); Neutrophil # 8.37 X10^3/uL (2.7-7.7); Neutrophil % 80.1 % (47-70); Platelet Count 123 K/mm3 (150-450); RBC Distribution Width CV 13.3 % (11.6-14.6); RBC Distribution Width SD 45.9 fl (35.1-43.9); Red Blood Count 3.21 M/mm3 (4.6-6.2); White Blood Count 10.4 K/mm3 (4.4-11.0)
[2022-05-24 12:23] LABS: Anion Gap 6 (5-15); BUN 45 mg/dL (7-18); BUN/Creat Ratio 30.6 RATIO (10-20); Calcium,Total 9.5 mg/dL (8.5-10.1); Chloride 106 mmol/L (98-107); Creatinine, Serum 1.47 mg/dL (0.70-1.30); EST Glomerular Filtration Rate 49 mL/min (>60); Est Glom Filt Rate - Afr Amer 59 mL/min (>60); Glucose 178 mg/dL (74-106); Potassium 4.3 mmol/L (3.5-5.1); Sodium Level 144 mmol/L (136-145); Troponin-I HS (w/2H Reflex) 31 pg/mL (3.0-78.0)
[2022-05-24 12:28] LABS: BNP,B-Type NATRIURETIC PEPTIDE 200.1 pg/mL (0-100)
[2022-05-24 14:00] LABS: Reflex Troponin-HS? (from REC) Y
[2022-05-24 14:37] LABS: Troponin-I HS 56 pg/mL (3.0-78.0)
[2022-05-24] MEDS: Furosemide 40 MG/4 ML Vial IV ×2 (15:19→18:02)
--- NOTE | 2022-05-24 15:50 | NURSING ---
PCU OBS [facility]ORIN CHF
--- NOTE | 2022-05-24 15:59 | PCM.HP.STD ---
[facility] - General General Date of Admission: 05/24/22 Date of Service: 05/24/22 Chief Complaint: SOB HPI Narrative BEULAH BRIGHT, is a 81 M with a history of heart failure, COPD on 2 L home O2, coronary artery disease, and hypertension who presented to [facility] 05/24/2022 with shortness of breath for several hours. He had been taking his friend to the dentist and he was sitting in his car on his 2 L of O2 and then progressively became more short of breath and increased his O2 and called EMS. He presented to the ED and was noted to have what appeared to be some edema on his chest x-ray, BNP mildly elevated but does have signs and symptoms of congestive heart failure with a noted recent decrease in his Lasix dose. In the ED had hemoglobin of 9.7, BUN 45 with a creatinine of 1.47, troponin of 31 that increased to 56 though technically both were considered within normal limits based on the reference range, and BNP 200 with variable BNP's in the past. Given 1 dose of IV Lasix in the ED. Heart rate 90s, tachypneic from 20s to 30s, 96% on 2 L. And variable blood pressure from systolic of 193-146. Hospitalist consulted for admission. Patient reports that since he was taken off of his hydrochlorothiazide due to gout 3 to 4 months ago he has had increasing shortness of breath that did worsen today when he was in the car and did not respond to increasing oxygen, reportedly had recently decreased his Lasix by his PCP. Is also had some phlegm with cough for the past 1.5 weeks but did not have the significant increase shortness of breath until today. Reports this is similar to other CHF exacerbations he has had. Was given IV Lasix in the ED and reports he is already starting to feel better now that he has been off. Did not have any other significant complaints, denied swelling in his extremities. [facility] Medical History Acute exacerbation of CHF (congestive heart failure) Aortic valve stenosis, acquired Atherosclerotic heart disease of [place] coronary artery without angina pectoris CAD (coronary artery disease) Chronic respiratory failure with hypoxia COPD (chronic obstructive pulmonary disease) Debility Diabetes mellitus, type 2 Former tobacco use History of left heart catheterization (LHC) (~03/15/22) HLD (hyperlipidemia) HTN (hypertension) Hypothyroidism Mild left ventricular hypertrophy Nonrheumatic aortic (valve) stenosis Obesity Polyarthralgia Home Medications atorvastatin 80 mg tablet 80 mg PO DAILY CHOLESTEROL 05/02/21 [History Last Taken 05/23/22] cholecalciferol (vitamin D3) 25 mcg (1,000 unit) capsule 25 mcg PO DAILY vitamin 05/02/21 [History Last Taken 05/24/22] ipratropium 0.5 mg-albuterol 3 mg (2.5 mg base)/3 mL nebulization soln 3 ml inhalation 4X/DAY PRN sob 05/02/21 [History Last Taken 05/23/22] liothyronine 25 mcg tablet 25 mcg PO DAILY THYROID 05/02/21 [History Last Taken 05/24/22] omega-3 fatty acids-vitamin E 1,000 mg capsule 2 cap PO BID SUPPLEMENT 05/02/21 [History Last Taken 05/24/22] tiotropium bromide 18 mcg capsule with inhalation device (Spiriva with HandiHaler) 18 mcg inhalation DAILY SOB 05/02/21 [History Last Taken 05/24/22] vitamins A,C,X-uqge-detmmz 4,296 mcg-226 mg-90 mg capsule (PreserVision AREDS) 1 cap PO BID vitamin 12/13/21 [History Last Taken 05/24/22] lisinopril 20 mg tablet (Zestril) 20 mg PO DAILY blood pressure 03/12/22 [History Last Taken 05/24/22] aspirin 81 mg chewable tablet 81 mg PO DAILY@0800 anticoagulant 04/12/22 [History Last Taken 05/24/22] carvedilol 6.25 mg tablet 6.25 mg PO BID blood pressure 04/12/22 [History Last Taken 05/24/22] amlodipine 5 mg tablet 5 mg PO DAILY #90 tabs 05/02/22 [Rx Last Taken 05/24/22] furosemide 40 mg tablet (Lasix) 20 mg PO DAILY 05/24/22 [History Last Taken 05/24/22] glimepiride 2 mg tablet 2 mg PO DAILY DM 05/24/22 [History Last Taken 05/24/22] metformin 500 mg tablet 500 mg PO BID DM 05/24/22 [History Last Taken 05/24/22] Allergy/AdvReac Type Severity Reaction Status Date / Time codeine AdvReac Upset Verified 05/24/22 11:08 Stomach Family History Mother CVA (cerebral vascular accident) Heart disease Myocardial infarction Hx of CABG Hypertension Father CVA (cerebral vascular accident) Heart disease Surgical History S/P cataract extraction Social History household members: none housing: house Smoking Status: Former smoker how long ago did patient quit smoking: Quit 2011, prior 1 ppd since teen. alcohol intake: former year quit: 2010 substance use type: does not use ROS ROS Narrative General: Denies fever/chills HENT: Denies headache, slight nasal congestion, denies sore throat EYES: Denies changes in vision Resp: Some cough for a week and a half, shortness of breath Cardiac: Denies chest pain GI: Denies abdominal pain, denies changes in bowel, denies nausea/vomiting : Denies changes in urination Extremity: Denies swelling MSK: Denies weakness Neuro: Denies any numbness/tingling Heme: Denies any bleeding or bruising Skin: Denies rashes Psychiatric: No complaints voiced Vital Signs Vital Signs Vital Signs: 05/24/22 11:08 05/24/22 11:14 05/24/22 11:16 Temperature 99.6 F H Temperature Source Temporal Pulse Rate 105 H 106 H Respiratory Rate 36 H 36 H Respiratory Effort Short of Breath Labored Respiratory Pattern Tachypnea Blood Pressure 193/64 H Blood Pressure Mean 107 Pulse Ox 100 99 Oxygen Delivery Method Nasal Cannula Nasal Cannula Oxygen Flow Rate (L/min) 4 3 05/24/22 12:22 05/24/22 13:01 05/24/22 14:05 Temperature Temperature Source Pulse Rate 101 H 100 97 Respiratory Rate 28 H 26 H 26 H Respiratory Effort Respiratory Pattern Blood Pressure 146/81 H 148/61 H 175/60 H Blood Pressure Mean 102 90 98 Pulse Ox 96 96 99 Oxygen Delivery Method Nasal Cannula Room Air Nasal Cannula Oxygen Flow Rate (L/min) 3 3 05/24/22 15:22 05/24/22 15:22 Temperature Temperature Source Pulse Rate 92 93 Respiratory Rate 28 H 28 H Respiratory Effort Respiratory Pattern Blood Pressure 184/53 H 184/53 H Blood Pressure Mean 96 96 Pulse Ox 96 96 Oxygen Delivery Method Nasal Cannula Nasal Cannula Oxygen Flow Rate (L/min) 2 3 Weight Weight: 90.265 kg Body Mass Index (BMI) 33.1 Physical Exam Narrative General: Alert, oriented HEENT: Atraumatic, normocephalic Eyes: Anicteric, normal conjunctiva, extraocular movements grossly intact Neck: Supple Respiratory: Diminished at the sounds, somewhat tachypneic, conversationally dyspneic Cardiovascular: Regular rate and rhythm GI: Soft, nontender, nondistended Extremities: No edema, but has compression stockings on Musculoskeletal: Moving all extremities Neuro: No overt focal neurological deficits Skin: No rashes appreciated Psych: Cooperative Results Lab / Micro Data Result Diagrams: 05/24/22 11:19 05/24/22 11:19 Labs: Laboratory Results - last 24 hr 05/24/22 11:19: WBC 10.4, RBC 3.21 L, Hgb 9.7 L, Hct 30.9 L, MCV 96.3 H, MCH 30.2, MCHC 31.4 L, RDW Std Deviation 45.9 H, RDW Coeff of John 13.3, Plt Count 123 L, MPV 10.8, Immature Gran % (Auto) 0.300, Neut % (Auto) 80.1 H, Lymph % (Auto) 10.9 L, [place] % (Auto) 5.4, Eos % (Auto) 2.9, Baso % (Auto) 0.4, Absolute Neuts (auto) 8.4 H, Absolute Lymphs (auto) 1.14, Nucleated RBC % 0 05/24/22 11:19: Sodium 144, Potassium 4.3, Chloride 106, Carbon Dioxide 32.0, Anion Gap 6, BUN 45 H, Creatinine 1.47 H, Estim Creat Clear Calc 33.70, Est GFR (MDRD) Af Amer 59 L, Est GFR (MDRD) Non-Af 49 L, BUN/Creatinine Ratio 30.6 H, Glucose 178 H, Calcium 9.5, Troponin I High Sens 31 05/24/22 11:19: B-Natriuretic Peptide 200.1 H 05/24/22 14:10: Troponin I High Sens 56 Radiology Impression Chest X-Ray 03/15/23 11:55 IMPRESSION: Residual or recurrent pneumonia of the lower lobes of both lungs. Electronically Signed: Yogesh Stokes MD at 12:39 EDT , Assessment & Plan Assessment/Plan (1) CHF (congestive heart failure): (2) History of CAD (coronary artery disease): PLAN: Plan #Acute exacerbation of chronic heart failure -BNP mildly elevated at 200 but chest x-ray suggestive of edema and had recent decrease in Lasix dose - milligram another 40 IV Lasix and then 40 IV Lasix daily -Daily weights, I's and O's -Echo 03/13/2022 with an EF of 65%, RVSP unable to estimate and diastolic dysfunction indeterminate but has documented heart failure, suspect diastolic. Given recent echocardiogram will not repeat -Fluid restriction #Chronic hypoxic respiratory failure secondary to COPD on 2 L home O2 -Will give nebs and as needed albuterol -We will check COVID and respiratory panel given significant wheezing and could have mixed picture as he has had increasing cough with some phlegm for 1 and half weeks, will start Mucinex -Incentive spirometry #Hypertension -Continue home beta-greta, lisinopril, amlodipine #Type 2 diabetes mellitus -Hold oral hypoglycemics -Sliding scale and glucose checks #CKD stage IIIb -Appears to be roughly baseline -Avoid nephrotoxic agents #History of coronary artery disease -Recent left heart cath 03/15/2022 with no new intervention -Continue aspirin and statin until beta-greta #Rising troponin -First troponin 31 with second 56, EKG with QTc 423 and normal sinus rhythm, ST nonspecific but no chest pain -Do not suspect ACS, will check another troponin to verify it levels off though if NSTEMI would highly suspect type II #DVT ppx: Heparin subcu Jennifer Pardo MD Time spent in the patient's overall evaluation,decision-making process, review of diagnostic data, adjustment of management, discussion with other providers, nursing nursing and ancillary staff involved in patient's care documentation, 60 minutes Charges/Coding Visit Charges Inpatient E&M: 94462 Init Hosp L2
[2022-05-24] MEDS: 0.9% Saline Lock 10 ML Syringe IV (18:02)
[2022-05-24] MEDS: amLODIPine 5 MG Tablet PO (18:02)
[2022-05-24 18:16] LABS: Bedside Glucose 148 mg/dL (74-106)
[2022-05-24] MEDS: Ipratropium/Albuterol Sulfate 3 ML AMPUL.NEB INHALATION ×2 (18:46→22:34)
[2022-05-24 19:01] LABS: Troponin-I HS 94 pg/mL (3.0-78.0)
[2022-05-24] MEDS: Heparin Injection (Vial) 5,000 UNIT/ML VIAL 5000 UNIT SC (21:15)
[2022-05-24] MEDS: Carvedilol 6.25 MG Tablet PO (21:15)
[2022-05-24] MEDS: Insulin Lispro 100 UNIT/ML INSULN.PEN SC (21:15)
[2022-05-24] MEDS: guaiFENesin 1,200 MG Tablet 1200 MG PO (21:15)
[2022-05-24] MEDS: Atorvastatin Calcium 80 MG Tablet PO (21:15)
[2022-05-24 22:18] LABS: Troponin-I HS 106 pg/mL (3.0-78.0)
[2022-05-24 22:45] LABS: Bedside Glucose 210 mg/dL (74-106)
[2022-05-25] VITALS (11 sets, daily range): BP systolic 122–155; BP diastolic 43–59; PULSE 84–94; RESP 12–21; TEMP 36.6–36.9; O2SAT 94–96; BMI 31.5
[2022-05-25] MEDS: Ipratropium/Albuterol Sulfate 3 ML AMPUL.NEB INHALATION ×6 (03:44→23:36)
[2022-05-25 05:53] LABS: Absolute Lymphocyte Count 1.47 X10^3/uL (0.83-4.51); Absolute Neutrophil Count 9.2 X10^3/uL (2.0-7.7); Basophil# 0.03 X10^3/uL; Basophil% 0.3 % (0-1); Eosinophils% 1.7 % (0-5); Hematocrit 28.7 % (40-54); Hemoglobin 9.3 g/dL (13.0-16.5); Lymphocyte # 1.47 X10^3/ul (0.83-4.51); Lymphocyte % 12.6 % (19-41); Mean Corp Hgb Conc 32.4 g/dL (32-36); Mean Corpuscular Volume 95.7 fL (80-94); Mean Platelet Vol. 10.8 fl (6.2-12.0); Monocyte# 0.75 X10^3/uL; Monocyte% 6.4 % (0-10); NRBC Flagged by Analyzer 0 % (0-5); Neutrophil % 78.7 % (47-70); Platelet Count 119 K/mm3 (150-450); RBC Distribution Width CV 13.3 % (11.6-14.6); RBC Distribution Width SD 45.5 fl (35.1-43.9); White Blood Count 11.7 K/mm3 (4.4-11.0)
[2022-05-25] MEDS: Heparin Injection (Vial) 5,000 UNIT/ML VIAL 5000 UNIT SC ×3 (06:22→21:58)
[2022-05-25 06:34] LABS: ALB/GLOB Ratio 0.7 RATIO (0.9-2.4); AST(SGOT) 15 U/L (15-37); Alanine Aminotransfer ALT/SGPT 20 U/L (16-61); Albumin, Serum 2.9 g/dL (3.2-5.0); Alkaline Phosphatase 68 U/L (45-117); Anion Gap 7 (5-15); BUN 53 mg/dL (7-18); BUN/Creat Ratio 33.8 RATIO (10-20); Calcium,Total 9.6 mg/dL (8.5-10.1); Chloride 102 mmol/L (98-107); Creatinine, Serum 1.57 mg/dL (0.70-1.30); EST Glomerular Filtration Rate 45 mL/min (>60); Est Glom Filt Rate - Afr Amer 55 mL/min (>60); Estimated Creatinine Clearance 31.56 ml/min; Glucose 154 mg/dL (74-106); Magnesium 1.5 mg/dL (1.6-2.6); Potassium 4.2 mmol/L (3.5-5.1); Protein, Total 6.9 g/dL (6.4-8.2); Sodium Level 141 mmol/L (136-145)
[2022-05-25 07:20] LABS: Bedside Glucose 144 mg/dL (74-106)
[2022-05-25] MEDS: Carvedilol 6.25 MG Tablet PO ×2 (09:24→21:58)
[2022-05-25] MEDS: Liothyronine 5 MCG Tablet 25 MCG PO (09:24)
[2022-05-25] MEDS: Aspirin 81 MG TAB.CHEW PO (09:24)
[2022-05-25] MEDS: Furosemide 40 MG/4 ML Vial IV (09:24)
[2022-05-25] MEDS: amLODIPine 5 MG Tablet PO (09:25)
[2022-05-25] MEDS: Lisinopril 20 MG Tablet PO (09:25)
[2022-05-25] MEDS: guaiFENesin 1,200 MG Tablet 1200 MG PO ×2 (09:26→21:58)
[2022-05-25] MEDS: 0.9% Saline Lock 10 ML Syringe IV (09:27)
--- NOTE | 2022-05-25 10:45 | PN.HOSP_ITS ---
Subjective Subjective Doing well, says that he is breathing better than when he came in back to his baseline 2 L nasal cannula Objective Data Objective Data Vital Signs: Vital Signs Temp Pulse Resp BP Pulse Ox O2 Del Method O2 Flow Rate 97.8 F 91 18 135/43 H 95 Nasal Cannula 2 05/25/22 04:01 05/25/22 07:12 05/25/22 07:12 05/25/22 04:01 05/25/22 07:12 05/25/22 10:22 05/25/22 10:22 Oxygen Flow Rate (L/min) 2 Oxygen Delivery Method Nasal Cannula Weight: 189 lb 6.033 oz Body Mass Index (BMI) 31.5 Intake & Output: Intake and Output for Last 24 Hours 05/24/22 05/25/22 05/26/22 03:59 03:59 03:59 Intake Total 720 / 720 120 / 120 Output Total 1075 / 1075 300 / 300 Balance -355 / -355 -180 / -180 Lab / Micro Data Result Diagrams: 05/25/22 04:58 05/25/22 04:58 Labs: Laboratory Results - last 24 hr 05/24/22 11:19: WBC 10.4, RBC 3.21 L, Hgb 9.7 L, Hct 30.9 L, MCV 96.3 H, MCH 30.2, MCHC 31.4 L, RDW Std Deviation 45.9 H, RDW Coeff of John 13.3, Plt Count 123 L, MPV 10.8, Immature Gran % (Auto) 0.300, Neut % (Auto) 80.1 H, Lymph % (Auto) 10.9 L, [place] % (Auto) 5.4, Eos % (Auto) 2.9, Baso % (Auto) 0.4, Absolute Neuts (auto) 8.4 H, Absolute Lymphs (auto) 1.14, Nucleated RBC % 0 05/24/22 11:19: Sodium 144, Potassium 4.3, Chloride 106, Carbon Dioxide 32.0, A nion Gap 6, BUN 45 H, Creatinine 1.47 H, Estim Creat Clear Calc 33.70, Est GFR (MDRD) Af Amer 59 L, Est GFR (MDRD) Non-Af 49 L, BUN/Creatinine Ratio 30.6 H, Glucose 178 H, Calcium 9.5, Troponin I High Sens 31 05/24/22 11:19: B-Natriuretic Peptide 200.1 H 05/24/22 14:10: Troponin I High Sens 56 05/24/22 17:50: Troponin I High Sens 94 H 05/24/22 17:55: POC Glucose 148 H 05/24/22 21:09: POC Glucose 210 H 05/24/22 21:52: Troponin I High Sens 106 H 05/25/22 04:58: WBC 11.7 H, RBC 3.00 L, Hgb 9.3 L, Hct 28.7 L, MCV 95.7 H, MCH 31.0, MCHC 32.4, RDW Std Deviation 45.5 H, RDW Coeff of John 13.3, Plt Count 119 L, MPV 10.8, Immature Gran % (Auto) 0.300, Neut % (Auto) 78.7 H, Lymph % (Auto) 12.6 L, Fillmore % (Auto) 6.4, Eos % (Auto) 1.7, Baso % (Auto) 0.3, Absolute Neuts ( auto) 9.2 H, Absolute Lymphs (auto) 1.47, Nucleated RBC % 0 05/25/22 04:58: Sodium 141, Potassium 4.2, Chloride 102, Carbon Dioxide 32.0, Anion Gap 7, BUN 53 H, Creatinine 1.57 H, Estim Creat Clear Calc 31.56, Est GFR (MDRD) Af Amer 55 L, Est GFR (MDRD) Non-Af 45 L, BUN/Creatinine Ratio 33.8 H, Glucose 154 H, Calcium 9.6, Magnesium 1.5 L, Total Bilirubin 1.20 H, AST 15, ALT 20, Alkaline Phosphatase 68, Total Protein 6.9, Albumin 2.9 L, Globulin 4.0, Albumin/Globulin Ratio 0.7 L, TSH 2.10 05/25/22 06:21: POC Glucose 144 H Micro: Microbiology 05/24/22 17:45 Mucosa - Nasopharyngeal Respiratory Panel (PCR) - Final 05/24/22 18:45 Nasal Secretion SARS-CoV-2 & FLU Antigen (Rapid) - Final Radiography Diagnostic Testing: Radiology Impression Chest X-Ray 05/24/22 11:55 IMPRESSION: Residual or recurrent pneumonia of the lower lobes of both lungs. Electronically Signed: Yogesh Stokes MD at 12:39 EDT , Physical Exam Narrative General: Alert, Oriented x3, Cooperative, No apparent distress HEENT: Atraumatic, PERRLA, EOMI, Normocephalic Oral: Moist Mucosa Neck: Supple, No JVD Lungs: Diminished, Normal air movement, No rhonchi, No wheeze, No rales Cardiovascular: Regular rate, Regular Rhythm, Normal S1, Normal S2, No murmurs Abdomen: Soft, Non Tender, Non-Distended, No Hepato-splenomegaly Extremities: Edema, Capillary Refill Less than 3 Seconds Skin: No rashes, No breakdown Musculoskeletal: No Tenderness to Palpation of Joints or Extremities Neurological: Cranial nerves II-XII grossly intact, Motor Exam 5/5 strength throughout, Sensory exam intact to light touch and pain Psych/Mental Status: Normal Affect, Appropriate Assessment & Plan Assessment/Plan (1) CHF (congestive heart failure): (2) History of CAD (coronary artery disease): PLAN: Plan 1. Acute on chronic hypoxic respiratory insufficiency secondary to acute exacerbation of heart failure with preserved EF/HTN/HLD/recent non-STEMI ? BNP was mildly elevated to 200 on admission ? He is on 2 L continuous, respiratory status appears improved compared to admission ? We will continue with his IV Lasix, he was recently decreased to every other day dosing given how many frequent admissions he has had I would rather have his creatinine to be around 2 and continue with diuresis then decreasing it ? Recent echo with an EF of 65% ? He did have a cardiac cath that showed nonocclusive coronary artery disease ? Viral panels are negative ? Troponins are mildly elevated likely secondary to his heart failure exacerbat ion 2.? DM 2/CKD 3a ? We will hold his home medications ? Will place him on insulin ? Accu-Cheks ACHS ? We will make adjustments as necessary ? His creatinine is at baseline 5.? Rest of chronic medical conditions including COPD, morbid obesity, complicates patient's overall management and care Patient is not in acute COPD exacerbation DVT: Heparin Charges/Coding Visit Charges Inpatient E&M: 66753 Subs Hosp L2
[2022-05-25] MEDS: Insulin Lispro 100 UNIT/ML INSULN.PEN SC (11:34)
[2022-05-25 11:55] LABS: Bedside Glucose 160 mg/dL (74-106)
--- NOTE | 2022-05-25 15:30 | CASEMGMT ---
ALMA RINALDI DC Planning: This RN CM met with pt face to face. Pt alert, sitting up in chair, and agreeable to discussion. Pt states he wears O2 at 2l/min at home and gets home O2 from [facility]. Pt states he is independent with ADLs, drives, and denies any concerns or home going needs. Pt has his home portable O2 concentrator in his room. Pt states he monitors his weight daily, has a BP cuff that works intermittently and has a pulse oximeter. Pt states his BP does not always register and denies feeling differently when his BP does not register. Discussed the Pt Link program but states he is not interested at this time. ALMA RINALDI explained ROGERS for to patient, patient voiced understanding.? Patient signed ROGERS Form and filed in chart.? Patient provided with copy of signed ROGERS form.? Patient had no further questions or concerns.?? Hi Bourgeois RN CM
[2022-05-25] MEDS: Albuterol 2.5 MG/3 ML VIAL.NEB. INHALATION (16:35)
[2022-05-25 17:00] LABS: Bedside Glucose 127 mg/dL (74-106)
[2022-05-25] MEDS: Atorvastatin Calcium 80 MG Tablet PO (21:58)
[2022-05-25 22:16] LABS: Bedside Glucose 135 mg/dL (74-106)
[2022-05-26 03:20] VITALS: BP 128/47; PULSE 92; RESP 18; TEMP 36.8; O2SAT 94
[2022-05-26 03:34] VITALS: PULSE 94; RESP 20
[2022-05-26] MEDS: Ipratropium/Albuterol Sulfate 3 ML AMPUL.NEB INHALATION ×2 (03:34→07:09)
[2022-05-26 05:25] VITALS: BMI 31.3
[2022-05-26] MEDS: Liothyronine 5 MCG Tablet 25 MCG PO (06:35)
[2022-05-26] MEDS: Insulin Lispro 100 UNIT/ML INSULN.PEN SC (06:36)
[2022-05-26] MEDS: Heparin Injection (Vial) 5,000 UNIT/ML VIAL 5000 UNIT SC (06:36)
[2022-05-26 07:00] LABS: Bedside Glucose 156 mg/dL (74-106)
[2022-05-26 07:08] VITALS: PULSE 91; RESP 18; O2SAT 96
[2022-05-26 07:22] LABS: Anion Gap 10 (5-15); BUN 67 mg/dL (7-18); BUN/Creat Ratio 39.6 RATIO (10-20); Calcium,Total 9.5 mg/dL (8.5-10.1); Chloride 98 mmol/L (98-107); Creatinine, Serum 1.69 mg/dL (0.70-1.30); EST Glomerular Filtration Rate 41 mL/min (>60); Est Glom Filt Rate - Afr Amer 50 mL/min (>60); Estimated Creatinine Clearance 29.31 ml/min; Glucose 169 mg/dL (74-106); Potassium 4.1 mmol/L (3.5-5.1); Sodium Level 139 mmol/L (136-145)
[2022-05-26 09:30] VITALS: BP 116/67; PULSE 89; RESP 18; TEMP 36.6; O2SAT 93
[2022-05-26] MEDS: Aspirin 81 MG TAB.CHEW PO (09:31)
[2022-05-26] MEDS: guaiFENesin 1,200 MG Tablet 1200 MG PO (09:32)
[2022-05-26] MEDS: Lisinopril 20 MG Tablet PO (09:32)
[2022-05-26] MEDS: Furosemide 40 MG/4 ML Vial IV (09:32)
[2022-05-26] MEDS: Carvedilol 6.25 MG Tablet PO (09:32)
[2022-05-26] MEDS: 0.9% Saline Lock 10 ML Syringe IV (09:32)
[2022-05-26] MEDS: amLODIPine 5 MG Tablet PO (09:32)
--- NOTE | 2022-05-26 10:14 | DCINST_ITS ---
Discharge Instructions Diet Discharge Diet: Low fat / Low cholesterol and 6 Cup Fluid Restriction Activity Discharge Activity: Return to Normal Activity Dressing / Incision Call your doctor if you observe: Fever of 101 or Higher, Shortness of breath, Dizziness, Fainting spells, Swelling in the ankles, Chest pain and Increased palpitations (irregular heartbeat) Follow Up Care Test Results: Test results from this visit will be discussed in further detail at your follow- up appointment, if applicable. Discharge Plan Admission Admit Date/Time: 05/24/22 15:59 Attending Provider: John Anders Primary Care Provider: Adrianna Nichols Consulting Providers: Jennifer Pardo Instructions Additional Instructions / Restrictions: Follow-up with your PCP in 3 to 5 days to monitor renal function. Given how many times you have been admitted for volume overload I would recommend lowering your lisinopril dose to protect your kidneys instead of lowering the Lasix dose. Discharge Orders/Prescriptions Prescriptions: New azithromycin 250 mg Tablet 500 mg PO Q24 Qty: 2 0RF cefdinir 300 mg Capsule 300 mg PO Q12 Qty: 9 0RF Continued amlodipine 5 mg tablet 5 mg PO DAILY Qty: 90 3RF atorvastatin 80 mg tablet 80 mg PO DAILY Label Comments: TAKE 1 TABLET BY MOUTH ONCE DAILY ipratropium-albuterol 0.5 mg-3 mg(2.5 mg base)/3 mL solution for nebulization 3 ml inhalation 4X/DAY PRN (Reason: sob) Label Comments: inhale contents of 1 vial ( 3 milliliters ) in nebulizer by mouth... (REFER TO PRESCRIPTION NOTES). liothyronine 25 mcg tablet 25 mcg PO DAILY Label Comments: TAKE 1 TABLET BY MOUTH ONCE DAILY FOR 90 DAYS Spiriva with HandiHaler 18 mcg capsule, w/inhalation device 18 mcg INHALATION DAILY Label Comments: INHALE THE CONTENTS OF 1 CAPSULE TWICE EACH TIME VIA HANDIHALER ONCE DAILY cholecalciferol (vitamin D3) 25 mcg (1,000 unit) Capsule 25 mcg PO DAILY omega-3 fatty acids-vitamin E 1,000 mg Capsule 2 cap PO BID PreserVision AREDS [id number] Capsule 1 cap PO BID lisinopril [Zestril] 20 mg tablet 20 mg PO DAILY Hold Instructions: Resume on 03/18/22. carvedilol 6.25 mg tablet 6.25 mg PO BID aspirin 81 mg tablet,chewable 81 mg PO DAILY@0800 metformin 500 mg tablet 500 mg PO BID Label Comments: take 1 tablet by mouth twice a day glimepiride 2 mg tablet 2 mg PO DAILY Label Comments: take 1 tablet by mouth once daily WITH FIRST MEAL OF THE DAY Changed furosemide [Lasix] 40 mg tablet 40 mg PO DAILY Qty: 1 0RF Referrals / Follow Up: Adrianna Nichols DO [Primary Care Provider] - Within 1 Week Disposition Disposition (needs filled in before D/C Order can be placed): Home, Self Care
[2022-05-26] MEDS: Cefdinir 300 MG Capsule PO (10:29)
[2022-05-26] MEDS: Azithromycin 250 MG Tablet 500 MG PO (10:29)
--- NOTE | 2022-05-26 11:27 | PHA.DC.MR ---
Pharmacy Service has performed discharge medication reconciliation for this patient. The patient's discharge medication list was reviewed for discrepancies and discrepancies were resolved. Patient discharged before I was able to drug and alcohol counselor. Home Medications atorvastatin 80 mg tablet 80 mg PO DAILY CHOLESTEROL 05/02/21 cholecalciferol (vitamin D3) 25 mcg (1,000 unit) capsule 25 mcg PO DAILY vitamin 05/02/21 ipratropium 0.5 mg-albuterol 3 mg (2.5 mg base)/3 mL nebulization soln 3 ml inhalation 4X/DAY PRN sob 05/02/21 liothyronine 25 mcg tablet 25 mcg PO DAILY THYROID 05/02/21 omega-3 fatty acids-vitamin E 1,000 mg capsule 2 cap PO BID SUPPLEMENT 05/02/21 tiotropium bromide 18 mcg capsule with inhalation device (Spiriva with HandiHaler) 18 mcg inhalation DAILY SOB 05/02/21 vitamins A,C,M-mamc-htopps 4,296 mcg-226 mg-90 mg capsule (PreserVision AREDS) 1 cap PO BID vitamin 12/13/21 lisinopril 20 mg tablet (Zestril) 20 mg PO DAILY blood pressure 03/12/22 aspirin 81 mg chewable tablet 81 mg PO DAILY@0800 anticoagulant 04/12/22 carvedilol 6.25 mg tablet 6.25 mg PO BID blood pressure 04/12/22 amlodipine 5 mg tablet 5 mg PO DAILY #90 tabs 05/02/22 glimepiride 2 mg tablet 2 mg PO DAILY DM 05/24/22 metformin 500 mg tablet 500 mg PO BID DM 05/24/22 azithromycin 250 mg tablet 500 mg PO Q24 #2 tabs 05/26/22 cefdinir 300 mg capsule 300 mg PO Q12 #9 caps 05/26/22 furosemide 40 mg tablet (Lasix) 40 mg PO DAILY #1 TAB 05/26/22
--- NOTE | 2022-05-26 14:26 | PCM.DC.SUM ---
Providers Date of Admission: 05/24/22 Primary Care Physician: Dr. Adrianna Nichols DO Reason For Visit: CHF Diagnosis Discharge Diagnosis (1) CHF (congestive heart failure): Status: Acute Code(s): I50.9 - Heart failure, unspecified (2) History of CAD (coronary artery disease): Status: Acute Code(s): Z86.79 - Personal history of other diseases of the circulatory system Medications at Discharge Home Medications atorvastatin 80 mg tablet 80 mg PO DAILY CHOLESTEROL 05/02/21 cholecalciferol (vitamin D3) 25 mcg (1,000 unit) capsule 25 mcg PO DAILY vitamin 05/02/21 ipratropium 0.5 mg-albuterol 3 mg (2.5 mg base)/3 mL nebulization soln 3 ml inhalation 4X/DAY PRN sob 05/02/21 liothyronine 25 mcg tablet 25 mcg PO DAILY THYROID 05/02/21 omega-3 fatty acids-vitamin E 1,000 mg capsule 2 cap PO BID SUPPLEMENT 05/02/21 tiotropium bromide 18 mcg capsule with inhalation device (Spiriva with HandiHaler) 18 mcg inhalation DAILY SOB 05/02/21 vitamins A,C,D-kfcu-tgfslh 4,296 mcg-226 mg-90 mg capsule (PreserVision AREDS) 1 cap PO BID vitamin 12/13/21 lisinopril 20 mg tablet (Zestril) 20 mg PO DAILY blood pressure 03/12/22 aspirin 81 mg chewable tablet 81 mg PO DAILY@0800 anticoagulant 04/12/22 carvedilol 6.25 mg tablet 6.25 mg PO BID blood pressure 04/12/22 amlodipine 5 mg tablet 5 mg PO DAILY #90 tabs 05/02/22 glimepiride 2 mg tablet 2 mg PO DAILY DM 05/24/22 metformin 500 mg tablet 500 mg PO BID DM 05/24/22 azithromycin 250 mg tablet 500 mg PO Q24 #2 tabs 05/26/22 cefdinir 300 mg capsule 300 mg PO Q12 #9 caps 05/26/22 furosemide 40 mg tablet (Lasix) 40 mg PO DAILY #1 TAB 05/26/22 Hospital Course Operations None Procedures None Summary of Care Provided Minutes Spent on Discharge: 35 Hospital Course: Per HPI: BEULAH BRIGHT, is a 81 M with a history of heart failure, COPD on 2 L home O2, coronary artery disease, and hypertension who presented to [facility] 05/24/2022 with shortness of breath for several hours.? He had been taking his friend to the dentist and he was sitting in his car on his 2 L of O2 and then progressively became more short of breath and increased his O2 and called EMS.? He presented to the ED and was noted to have what appeared to be some edema on his chest x-ray, BNP mildly elevated but does have signs and symptoms of congestive heart failure with a noted recent decrease in his Lasix dose.? In the ED had hemoglobin of 9.7, BUN 45 with a creatinine of 1.47, troponin of 31 that increased to 56 though technically both were considered within normal limits based on the reference range, and BNP 200 with variable BNP's in the past.? Given 1 dose of IV Lasix in the ED.? Heart rate 90s, tachypneic from 20s to 30s, 96% on 2 L.? And variable blood pressure from systolic of 193-146.? Hospitalist consulted for admission.? Patient reports that since he was taken off of his hydrochlorothiazide due to gout 3 to 4 months ago he has had increasing shortness of breath that did worsen today when he was in the car and did not respond to increasing oxygen, reportedly had recently decreased his Lasix by his PCP.? Is also had some phlegm with cough for the past 1.5 weeks but did not have the significant increase shortness of breath until today.? Reports this is similar to other CHF exacerbations he has had.? Was given IV Lasix in the ED and reports he is already starting to feel better now that he has been off.? Did not have any other significant complaints, denied swelling in his extremities. Hospital Course: 1. Acute on chronic hypoxic respiratory insufficiency secondary to acute exacerbation of heart failure with preserved EF versus community-acquired pneumonia/HTN/HLD/recent non-STEMI ? BNP was mildly elevated to 200 on admission ? He is on 2 L continuous, respiratory status appears improved compared to admission ? We will continue with his IV Lasix, he was recently decreased to every other day dosing given how many frequent admissions he has had I would rather have his creatinine to be around 2 and continue with diuresis then decreasing it. In the end of the day may benefit from lowering his lisinopril dose and keeping his Lasix at his current dosing ? Recent echo with an EF of 65% ? He did have a cardiac cath that showed nonocclusive coronary artery disease ? Viral panels are negative, he does continue to have a cough and he did have a rise in his white blood cell count today, will start him on azithromycin and cefdinir to cover For community-acquired pneumonia ? Troponins are mildly elevated likely secondary to his heart failure exacerbation ? I discussed with him the plan for discharge today as he has had significant improvement since admission, and he expressed understanding of the risk benefits of going home and would like to go home today. 2.? DM 2/CKD 3a ? We will hold his home medications ? Will place him on insulin ? Accu-Cheks ACHS ? We will make adjustments as necessary ? His creatinine is at baseline 5.? Rest of chronic medical conditions including COPD, morbid obesity, complicates patient's overall management and care Patient is not in acute COPD exacerbation Physical Exam Narrative General: Alert, Oriented x3, Cooperative, No apparent distress HEENT: Atraumatic, PERRLA, EOMI, Normocephalic Oral: Moist Mucosa Neck: Supple, No JVD Lungs: Diminished, Normal air movement, No rhonchi, No wheeze, No rales Cardiovascular: Regular rate, Regular Rhythm, Normal S1, Normal S2, No murmurs Abdomen: Soft, Non Tender, Non-Distended, No Hepato-splenomegaly Extremities: Edema, Capillary Refill Less than 3 Seconds Skin: No rashes, No breakdown Musculoskeletal: No Tenderness to Palpation of Joints or Extremities Neurological: Cranial nerves II-XII grossly intact, Motor Exam 5/5 strength throughout, Sensory exam intact to light touch and pain Psych/Mental Status: Normal Affect, Appropriate Weight / BMI Weight Weight: 188 lb 4.396 oz Body Mass Index (BMI) 31.3 ABG / Lab / Microbiology Data Result Diagrams: 05/25/22 04:58 05/26/22 05:40 Laboratory: Laboratory Results - last 24 hr 05/25/22 16:42: POC Glucose 127 H 05/25/22 21:51: POC Glucose 135 H 05/26/22 05:40: Sodium 139, Potassium 4.1, Chloride 98, Carbon Dioxide 31.0, Anion Gap 10, BUN 67 H, Creatinine 1.69 H, Estim Creat Clear Calc 29.31, Est GFR (MDRD) Af Amer 50 L, Est GFR (MDRD) Non-Af 41 L, BUN/Creatinine Ratio 39.6 H, Glucose 169 H, Calcium 9.5 05/26/22 06:32: POC Glucose 156 H Microbiology: Microbiology 05/24/22 17:45 Mucosa - Nasopharyngeal Respiratory Panel (PCR) - Final 05/24/22 18:45 Nasal Secretion SARS-CoV-2 & FLU Antigen (Rapid) - Final D/C Instructions Discharge Diet: Low fat / Low cholesterol and 6 Cup Fluid Restriction Call your doctor if you observe: Fever of 101 or Higher, Shortness of breath, Dizziness, Fainting spells, Swelling in the ankles, Chest pain and Increased palpitations (irregular heartbeat) Meaningful Use Info Meaningful Use Diagnoses (Choose all that apply): None applicable Discharge Plan Admission Admit Date/Time: 05/24/22 15:59 Attending Provider: John Anders Primary Care Provider: Adrianna Nichols Consulting Providers: Jennifer Pardo Instructions Additional Instructions / Restrictions: Follow-up with your PCP in 3 to 5 days to monitor renal function. Given how many times you have been admitted for volume overload I would recommend lowering your lisinopril dose to protect your kidneys instead of lowering the Lasix dose. Discharge Orders/Prescriptions Prescriptions: New azithromycin 250 mg Tablet 500 mg PO Q24 Qty: 2 0RF cefdinir 300 mg Capsule 300 mg PO Q12 Qty: 9 0RF Continued amlodipine 5 mg tablet 5 mg PO DAILY Qty: 90 3RF atorvastatin 80 mg tablet 80 mg PO DAILY Label Comments: TAKE 1 TABLET BY MOUTH ONCE DAILY ipratropium-albuterol 0.5 mg-3 mg(2.5 mg base)/3 mL solution for nebulization 3 ml inhalation 4X/DAY PRN (Reason: sob) Label Comments: inhale contents of 1 vial ( 3 milliliters ) in nebulizer by mouth... (REFER TO PRESCRIPTION NOTES). liothyronine 25 mcg tablet 25 mcg PO DAILY Label Comments: TAKE 1 TABLET BY MOUTH ONCE DAILY FOR 90 DAYS Spiriva with HandiHaler 18 mcg capsule, w/inhalation device 18 mcg INHALATION DAILY Label Comments: INHALE THE CONTENTS OF 1 CAPSULE TWICE EACH TIME VIA HANDIHALER ONCE DAILY cholecalciferol (vitamin D3) 25 mcg (1,000 unit) Capsule 25 mcg PO DAILY omega-3 fatty acids-vitamin E 1,000 mg Capsule 2 cap PO BID PreserVision AREDS [id number] Capsule 1 cap PO BID lisinopril [Zestril] 20 mg tablet 20 mg PO DAILY Hold Instructions: Resume on 03/18/22. carvedilol 6.25 mg tablet 6.25 mg PO BID aspirin 81 mg tablet,chewable 81 mg PO DAILY@0800 metformin 500 mg tablet 500 mg PO BID Label Comments: take 1 tablet by mouth twice a day glimepiride 2 mg tablet 2 mg PO DAILY Label Comments: take 1 tablet by mouth once daily WITH FIRST MEAL OF THE DAY Changed furosemide [Lasix] 40 mg tablet 40 mg PO DAILY Qty: 1 0RF Referrals / Follow Up: Adrianna Nichols DO [Primary Care Provider] - Within 1 Week Disposition Disposition (needs filled in before D/C Order can be placed): Home, Self Care Charges/Coding Visit Charges Inpatient E&M: 88972 Disch Hosp >30min
== END 2022-05-26 10:19 | disposition home or self-care (01) ==
LOC: ED 15:07 → PCU 15:59
PROVIDERS: Admitting Provider Internal Medicine; Emergency Provider Emergency Medicine; PCP Family Medicine; Visit Provider Family Medicine
DX: I13.0 Hypertensive heart and chronic kidney disease with heart failure and stage 1 through stage 4 chronic kidney disease, or unspecified chronic kidney disease (principal); J44.9 Chronic obstructive pulmonary disease, unspecified; I50.33 Acute on chronic diastolic (congestive) heart failure; E11.22 Type 2 diabetes mellitus with diabetic chronic kidney disease; J96.11 Chronic respiratory failure with hypoxia; N18.31 Chronic kidney disease, stage 3a; Z79.82 Long term (current) use of aspirin; I25.10 Atherosclerotic heart disease of native coronary artery without angina pectoris; E78.5 Hyperlipidemia, unspecified; Z87.891 Personal history of nicotine dependence; Z79.01 Long term (current) use of anticoagulants; Z79.84 Long term (current) use of oral hypoglycemic drugs; Z79.899 Other long term (current) drug therapy; E03.9 Hypothyroidism, unspecified; Z79.890 Hormone replacement therapy; Z99.81 Dependence on supplemental oxygen; I25.2 Old myocardial infarction
CPT/HCPCS: 36415; 71045; 80048; 80053; 82962; 83735; 83880; 84443; 84484; 85025; 87428; 87633; 93005; 94640; 94668; 96372; 96374; 96376; 97165; 99221; 99252; 99285; A4216; G0378; G0463; J1940

== ENCOUNTER 2022-10-22 20:13 | Emergency (ER) | payer MEDICARE, SELFPAY ==
[2022-10-22 20:14] VITALS: PULSE 114; RESP 26; TEMP 37; O2SAT 97; BMI 33.4
[2022-10-22 20:23] VITALS: O2SAT 97
[2022-10-22 20:37] VITALS: BP 185/174; PULSE 106; RESP 24; TEMP 37; O2SAT 97
--- NOTE | 2022-10-22 20:39 | EKG12_ITS ---
Test Reason : SOB Blood Pressure : / mmHG Vent. Rate : 102 BPM Atrial Rate : 102 BPM P-R Int : 248 ms QRS Dur : 084 ms QT Int : 336 ms P-R-T Axes : 061 -08 047 degrees QTc Int : 437 ms Sinus tachycardia with 1st degree A-V block Nonspecific ST abnormality Abnormal ECG Confirmed by MICKIE LOVE ([id number]), photo editor GARRY DENNY ([id number]) on 10/30/2022 2:03:00 PM Referred By: BETSEY Confirmed By:MICKIE LOVE
--- NOTE | 2022-10-22 20:40 | RAD_ITS ---
STUDY: X-RAY CHEST REASON FOR EXAM: Male, 82 years old. Dyspnea TECHNIQUE: Single AP portable view of the chest. COMPARISON: 05/24/2022 FINDINGS: Poor inspiration with some bibasilar atelectasis There is no demonstrated pleural abnormality. Normal size heart. Normal mediastinum and purnima. Normal visualized pulmonary arteries. Normal visualized aortic arch and descending thoracic aorta. Normal visualized thoracic spine. Normal visualized ribs, clavicles, and shoulders. There is no demonstrated abnormality of the visualized soft tissue structures of the upper abdomen. RAD/Chest 1 View (Portable) IMPRESSION: Poor inspiration with some bibasilar atelectasis Electronically Signed: Dennis Garcia MD at 21:18 EDT ,
[2022-10-22] MEDS: Ipratropium/Albuterol Sulfate 3 ML AMPUL.NEB INHALATION (20:53)
[2022-10-22 21:00] VITALS: PULSE 106; RESP 28
[2022-10-22 21:10] LABS: Absolute Lymphocyte Count 1.35 X10^3/uL (0.83-4.51); Basophil# 0.04 X10^3/uL; Basophil% 0.6 % (0-1); Eosinophil# 0.44 X10^3/uL; Eosinophils% 6.9 % (0-5); Hematocrit 28.5 % (40-54); Lymphocyte # 1.35 X10^3/ul (0.83-4.51); Lymphocyte % 21.3 % (19-41); Mean Corp Hgb Conc 31.6 g/dL (32-36); Mean Corpuscular Hgb 29.8 pg (27.0-32.0); Mean Corpuscular Volume 94.4 fL (80-94); Mean Platelet Vol. 10.9 fl (6.2-12.0); Monocyte% 7.9 % (0-10); NRBC Flagged by Analyzer 0 % (0-5); Neutrophil % 63.1 % (47-70); Platelet Count 116 K/mm3 (150-450); RBC Distribution Width CV 13.8 % (11.6-14.6); RBC Distribution Width SD 47.1 fl (35.1-43.9); Red Blood Count 3.02 M/mm3 (4.6-6.2); White Blood Count 6.3 K/mm3 (4.4-11.0)
[2022-10-22 21:15] LABS: D-Dimer Quantitative (DVT/PE) 0.62 FEU/ug/m (0.27-0.49)
[2022-10-22 21:27] LABS: Anion Gap 5 (5-15); BUN 72 mg/dL (7-18); BUN/Creat Ratio 36.4 RATIO (10-20); Calcium,Total 9.4 mg/dL (8.5-10.1); Chloride 105 mmol/L (98-107); Creatinine, Serum 1.98 mg/dL (0.70-1.30); EST Glomerular Filtration Rate 34 mL/min (>60); Est Glom Filt Rate - Afr Amer 42 mL/min (>60); Estimated Creatinine Clearance 24.59 ml/min; Glucose 171 mg/dL (74-106); Potassium 4.5 mmol/L (3.5-5.1); Sodium Level 143 mmol/L (136-145); Troponin-I HS 24 pg/mL (3.0-78.0)
[2022-10-22 21:29] LABS: BNP,B-Type NATRIURETIC PEPTIDE 47.9 pg/mL (0-100)
[2022-10-22 21:40] VITALS: BP 127/66; PULSE 97; RESP 22; TEMP 37; O2SAT 98
[2022-10-22 22:50] VITALS: BP 131/56; PULSE 93; RESP 20; O2SAT 98
--- NOTE | 2022-10-22 23:32 | ED.VIS.DYS ---
HPI History of Present Illness Chief Complaint: Shortness of Breath Informant: patient Onset/Context/Timing Onset: Weeks (1) Context: gradual Timing: Continuous Quality: Positive for Dyspnea on exertion Worsened by: Exertion Relieved by: Rest Associated Symptoms Negative for cough, rhinorrhea, post nasal drip, ear pain, fever, sore throat, chills or sweats Chest Pain: Positive for None Narrative Narrative: Patient presents with shortness of breath that has been getting worse over the past week. Patient states it is gradually getting worse. Patient states his primary care physician changed his diuretic. Patient states that since that time his breathing is gotten worse. Patient states his breathing is worse with any exertion. Patient states it is better with rest. Patient denies any cough. Patient denies any sore throat or rhinorrhea. Patient denies any fevers or chills. Patient denies any chest pain. PE Risk Factors: Negative for Cancer, OCP + Smoking + > 35, Prior DVT or PE, Recent immobilization, Recent surgery or Recent travel [facility] Medical History Aortic valve stenosis, acquired Atherosclerotic heart disease of [place] coronary artery without angina pectoris CAD (coronary artery disease) Chronic respiratory failure with hypoxia COPD (chronic obstructive pulmonary disease) Diabetes mellitus, type 2 Former tobacco use History of CAD (coronary artery disease) History of left heart catheterization (LHC) (~03/15/22) HLD (hyperlipidemia) HTN (hypertension) Hypothyroidism Mild left ventricular hypertrophy Nonrheumatic aortic (valve) stenosis Obesity Polyarthralgia Home Medications atorvastatin 80 mg tablet 80 mg PO DAILY CHOLESTEROL 05/02/21 [History Last Taken 05/23/22] cholecalciferol (vitamin D3) 25 mcg (1,000 unit) capsule 25 mcg PO DAILY vitamin 05/02/21 [History Last Taken 05/24/22] ipratropium 0.5 mg-albuterol 3 mg (2.5 mg base)/3 mL nebulization soln 3 ml inhalation 4X/DAY PRN sob 05/02/21 [History Last Taken 05/23/22] liothyronine 25 mcg tablet 25 mcg PO DAILY THYROID 05/02/21 [History Last Taken 05/24/22] omega-3 fatty acids-vitamin E 1,000 mg capsule 2 cap PO BID SUPPLEMENT 05/02/21 [History Last Taken 05/24/22] tiotropium bromide 18 mcg capsule with inhalation device (Spiriva with HandiHaler) 18 mcg inhalation DAILY SOB 05/02/21 [History Last Taken 05/24/22] vitamins A,C,L-vonz-czexmw 4,296 mcg-226 mg-90 mg capsule (PreserVision AREDS) 1 cap PO BID vitamin 12/13/21 [History Last Taken 05/24/22] lisinopril 20 mg tablet (Zestril) 20 mg PO DAILY blood pressure 03/12/22 [History Last Taken 05/24/22] aspirin 81 mg chewable tablet 81 mg PO DAILY@0800 anticoagulant 04/12/22 [History Last Taken 05/24/22] carvedilol 6.25 mg tablet 6.25 mg PO BID blood pressure 04/12/22 [History Last Taken 05/24/22] amlodipine 5 mg tablet 5 mg PO DAILY #90 tabs 05/02/22 [Rx Last Taken 05/24/22] glimepiride 2 mg tablet 2 mg PO DAILY DM 05/24/22 [History Last Taken 05/24/22] metformin 500 mg tablet 500 mg PO BID DM 05/24/22 [History Last Taken 05/24/22] furosemide 40 mg tablet (Lasix) 40 mg PO DAILY #90 tabs 07/06/22 [Rx Last Taken Unknown] Allergy/AdvReac Type Severity Reaction Status Date / Time codeine AdvReac Upset Verified 07/06/22 09:12 Stomach Family History (Reviewed 07/06/22 @ 10:00 by Bart Galo CLINICAL TRIALS DATA COORDINATOR, CLINICAL TRIALS DATA COORDINATOR-C) Mother CVA (cerebral vascular accident) Heart disease Myocardial infarction Hx of CABG Hypertension Father CVA (cerebral vascular accident) Heart disease Surgical History S/P cataract extraction Social History household members: none housing: house Smoking Status: Former smoker how long ago did patient quit smoking: Quit 2010, prior 1 ppd since teen. alcohol intake: former year quit: 2010 substance use type: does not use ROS ROS ED Constitutional Constitutional ED: Denies chills or fever(s) Eyes Eyes: Reports blurry vision and diplopia ENT ENT ED: Denies rhinorrhea or sore throat Cardiovascular Cardiovascular: Denies chest pain or palpitations Respiratory/Chest Respiratory/Chest: Reports dyspnea; Denies cough Gastrointestinal Gastrointestinal: Denies nausea or vomiting Genitourinary Genitourinary ED: Denies dysuria or hematuria Musculoskeletal Musculoskeletal: Denies back pain or neck pain Integumentary Denies abscess or rash Neurologic Neurologic: Denies headache(s) or weakness Allergic/Immunologic Allergic/Immunologic ED: Denies mouth swelling or urticaria EXAM Physical Exam Const Vital Signs: 10/22/22 20:14 10/22/22 20:23 10/22/22 20:37 Temperature 98.6 F 98.6 F Temperature Source Temporal Temporal Pulse Rate 114 H 106 H Respiratory Rate 26 H 24 H Respiratory Effort Short of Breath Respiratory Depth Shallow Respiratory Pattern Tachypnea Blood Pressure 185/174 H Blood Pressure Mean 177 Pulse Ox 97 97 Oxygen Delivery Method Nasal Cannula Nasal Cannula Room Air Oxygen Flow Rate (L/min) 4 4 10/22/22 20:43 10/22/22 21:00 10/22/22 21:40 Temperature Temperature Source Pulse Rate 106 H 97 Respiratory Rate 28 H 22 H Respiratory Effort Respiratory Depth Respiratory Pattern Tachypnea Blood Pressure 127/66 H Blood Pressure Mean 86 Pulse Ox 98 Oxygen Delivery Method Nasal Cannula Nasal Cannula Oxygen Flow Rate (L/min) 4 4 10/22/22 21:40 10/22/22 22:50 Temperature 98.6 F Temperature Source Temporal Pulse Rate 97 93 Respiratory Rate 22 H 20 H Respiratory Effort Respiratory Depth Respiratory Pattern Blood Pressure 127/66 H 131/56 H Blood Pressure Mean 86 81 Pulse Ox 98 98 Oxygen Delivery Method Nasal Cannula Nasal Cannula Oxygen Flow Rate (L/min) 2 Positive well nourished, well developed and obese General Appearance ED: well developed and NAD Nutritional Appearance: obese HEENT Reports moist mucous membranes Neck supple and no JVD Resp normal respiratory effort Auscultation: wheezes throughout Cardio regular rate and regular rhythm GI normal to inspection, nondistended, normoactive bowel sounds and non-tender Palpation: soft Extremity normal to inspection General Extremety ED: Negative for edema or tenderness General Extremity: Negative for edema Neuro oriented x3, CN's II-XII intact bilaterally and no sensory deficits noted Sensorium / Orientation: alert Motor Exam: strength 5/5 throughout Psych mental status grossly normal Skin no rashes or lesions noted MDM MDM MDM Narrative Medical decision making narrative: Differential diagnosis includes pneumonia, pneumothorax, congestive heart failure, pulmonary embolism, cardiac dysrhythmia, cardiac ischemia, and COPD. CBC will be obtained to assess for leukocytosis and anemia. Basic metabolic profile will be obtained to assess for electrolyte abnormality and renal function. D-dimer will be obtained to assess for pulmonary embolism. High-sensitivity troponin will be obtained to assess for cardiac ischemia. BNP will be obtained to assess for congestive heart failure. Chest x-ray will be obtained to assess for pneumonia, pneumothorax, acute congestive heart failure. EKG will be obtained to assess for cardiac dysrhythmia and cardiac ischemia. History & Record Review Additional record(s) reviewed:: Prior labs Lab Data Attestation: I reviewed the patient's lab results. Lab results narrative: CBC was reviewed. There is a stable anemia with a hemoglobin of 9.0 hematocrit 28.5. Platelets were slightly low at 116. D-dimer was reviewed and was 0.62. This is normal for his age. Basic metabolic profile was reviewed. BUN was 72 and creatinine was 1.98. These are slightly increased from previous result. High-sensitivity troponin was reviewed and was normal at 24. BNP was reviewed and was normal at 47.9. Labs: Laboratory Results - last 24 hr 10/22/22 20:33 WBC 6.3 RBC 3.02 L Hgb 9.0 L Hct 28.5 L MCV 94.4 H MCH 29.8 MCHC 31.6 L RDW Std Deviation 47.1 H RDW Coeff of John 13.8 Plt Count 116 L MPV 10.9 Immature Gran % (Auto) 0.200 Neut % (Auto) 63.1 Lymph % (Auto) 21.3 [place] % (Auto) 7.9 Eos % (Auto) 6.9 H Baso % (Auto) 0.6 Absolute Neuts (auto) 4.0 Absolute Lymphs (auto) 1.35 Nucleated RBC % 0 D-Dimer Quant (PE/DVT) 0.62 H* Sodium 143 Potassium 4.5 Chloride 105 Carbon Dioxide 33.0 H Anion Gap 5 BUN 72 H Creatinine 1.98 H Estim Creat Clear Calc 24.59 Est GFR (MDRD) Af Amer 42 L Est GFR (MDRD) Non-Af 34 L BUN/Creatinine Ratio 36.4 H Glucose 171 H Calcium 9.4 Troponin I High Sens 24 B-Natriuretic Peptide 47.9 Radiography Diagnostic Testing: Clinical Impression(s) from Imaging Studies Chest X-Ray 10/22/22 20:40 IMPRESSION: Poor inspiration with some bibasilar atelectasis Electronically Signed: Dennis Garcia MD at 21:18 EDT , Portable 1 view chest x-ray was obtained. On my independent interpretation, lung hollis show bibasilar atelectasis. There is normal cardiac silhouette. Bony thorax is normal. There is no acute process noted. Radiologist also interpreted the x-ray and agrees. EKG Initial EKG: Attestation: I personally reviewed and interpreted this EKG as follows: Interpretation: Sinus Tachycardia (With first-degree AV block with a rate of 102) and Non-Specific ST Changes Comments: EKG was obtained. On my independent interpretation, it showed a sinus tachycardia with a rate of 102. [place] interval was prolonged at 248 ms. QRS interval was normal at 84 ms. QTc interval was normal at 437 ms. [place] was normal. There are nonspecific ST-T wave changes. Prior EKG tracings: available for review Prior: Unchanged (05/24/2022) Treatment and Re-Evaluation :: Patient was given a DuoNeb aerosol here. Patient was advised of his findings. Patient felt better on reevaluation. Patient is normally on 2 L nasal cannula at home. Patient wants to go home. Patient was instructed to follow-up with his primary care physician in 5 to 7 days. Patient was instructed to continue his home aerosols as needed. Patient was instructed return if worse in any way. Patient understood and was agreeable with the plan. All questions were answered. Discharge Plan Triage Chief Complaint: Shortness of Breath ED Provider: Eyal Calderon Dx/Rx/DC Orders Clinical Impression: Dyspnea, COPD (chronic obstructive pulmonary disease) Instructions: ED Dyspnea Prescriptions: No Action amlodipine 5 mg tablet 5 mg PO DAILY Qty: 90 3RF furosemide [Lasix] 40 mg tablet 40 mg PO DAILY Qty: 90 3RF atorvastatin 80 mg tablet 80 mg PO DAILY Patient Comments: TAKE 1 TABLET BY MOUTH ONCE DAILY ipratropium-albuterol 0.5 mg-3 mg(2.5 mg base)/3 mL solution for nebulization 3 ml inhalation 4X/DAY PRN (Reason: sob) Patient Comments: inhale contents of 1 vial ( 3 milliliters ) in nebulizer by mouth... (REFER TO PRESCRIPTION NOTES). liothyronine 25 mcg tablet 25 mcg PO DAILY Patient Comments: TAKE 1 TABLET BY MOUTH ONCE DAILY FOR 90 DAYS Spiriva with HandiHaler 18 mcg capsule, w/inhalation device 18 mcg INHALATION DAILY Patient Comments: INHALE THE CONTENTS OF 1 CAPSULE TWICE EACH TIME VIA HANDIHALER ONCE DAILY cholecalciferol (vitamin D3) 25 mcg (1,000 unit) Capsule 25 mcg PO DAILY omega-3 fatty acids-vitamin E 1,000 mg Capsule 2 cap PO BID PreserVision AREDS [id number] Capsule 1 cap PO BID lisinopril [Zestril] 20 mg tablet 20 mg PO DAILY Hold Instructions: Resume on 03/18/22. carvedilol 6.25 mg tablet 6.25 mg PO BID aspirin 81 mg tablet,chewable 81 mg PO DAILY@0800 metformin 500 mg tablet 500 mg PO BID Patient Comments: take 1 tablet by mouth twice a day glimepiride 2 mg tablet 2 mg PO DAILY Patient Comments: take 1 tablet by mouth once daily WITH FIRST MEAL OF THE DAY Primary Care Provider: Adrianna Nichols Referrals: Adrianna Nichols DO [Primary Care Provider] - 5-7 Days Disposition Disposition: Home, Self Care
[2022-10-23 00:04] VITALS: RESP 20; O2SAT 95
== END 2022-10-23 00:27 | disposition home or self-care (01) ==
PROVIDERS: Emergency Provider Emergency Medicine; PCP Family Medicine; Visit Provider Emergency Medicine
DX: J44.9 Chronic obstructive pulmonary disease, unspecified (principal); E11.9 Type 2 diabetes mellitus without complications; E78.5 Hyperlipidemia, unspecified; I25.10 Atherosclerotic heart disease of native coronary artery without angina pectoris; Z87.891 Personal history of nicotine dependence; I10 Essential (primary) hypertension; E03.9 Hypothyroidism, unspecified; Z79.899 Other long term (current) drug therapy; Z79.82 Long term (current) use of aspirin; Z79.84 Long term (current) use of oral hypoglycemic drugs; R06.00 Dyspnea, unspecified
CPT/HCPCS: 71045; 80048; 83880; 84484; 85025; 85379; 93005; 94640; 99285

== ENCOUNTER 2022-11-16 16:24 | Inpatient (IN) | payer MEDICARE, SELFPAY ==
[2022-11-16] VITALS (8 sets, daily range): BP systolic 104–150; BP diastolic 42–82; PULSE 88–104; RESP 16–24; TEMP 36.7–37; O2SAT 97–100; BMI 32.7; BMI 31.1
--- NOTE | 2022-11-16 16:38 | EKG12_ITS ---
Test Reason : SOB Blood Pressure : / mmHG Vent. Rate : 097 BPM Atrial Rate : 097 BPM P-R Int : 238 ms QRS Dur : 082 ms QT Int : 336 ms P-R-T Axes : 038 -11 053 degrees QTc Int : 426 ms Sinus rhythm with 1st degree A-V block Minimal voltage criteria for LVH, may be normal variant ( R in aVL ) Nonspecific T wave abnormality Abnormal ECG Confirmed by JOSHUA CARRILLO, JACOB ([id number]), graphics editor GARRY DENNY ([id number]) on 11/17/2022 12:16:40 PM Referred By: Confirmed By:JACOB LEWIS MD
--- NOTE | 2022-11-16 16:41 | ED.VIS.DYS ---
HPI History of Present Illness Chief Complaint: Shortness of Breath Informant: patient Narrative Narrative: Patient presents with dyspnea. Of note, patient is a very poor informant for details. Patient states he has had dyspnea for at least 3 months. He states it got worse when they took me off that one medication. It sounds like they switched him from a medication and possibly switched him to Lasix. But I cannot verify that. I cannot get from him what that medication was for. I can get information that he had chest pain the last time when they did his heart cath but not since. I looked up his heart cath on our computer system and there were some mild luminal irregularities at 25 and 50%. Patient denies a history of CHF. He is not sure if he has COPD. But he is on meds for both of these. He called EMS today because he is tired of being short of breath. It sounds like nothing was markedly different today but I cannot get him to say definitively yes or no if it changed recently. I know he has had more dyspnea the last few months. He does deny fevers he does deny any sputum production. He does not know if he gained weight because he used to weigh himself every day at the nursing facility but his eyes are too bad and he cannot read the numbers anymore. He cannot tell me what makes his breathing better. He does state when he takes Lasix he thinks it gets worse but he cannot tell me if it gets worse shortly after Lasix or just in general since he has been on Lasix. I also note that his chart and cath has shown moderate aortic stenosis. His echocardiogram earlier this year showed good ejection fraction. [facility] Medical History Aortic valve stenosis, acquired Atherosclerotic heart disease of [place] coronary artery without angina pectoris CAD (coronary artery disease) Chronic respiratory failure with hypoxia COPD (chronic obstructive pulmonary disease) Diabetes mellitus, type 2 Former tobacco use History of CAD (coronary artery disease) History of left heart catheterization (LHC) (~03/15/22) HLD (hyperlipidemia) HTN (hypertension) Hypothyroidism Mild left ventricular hypertrophy Nonrheumatic aortic (valve) stenosis Obesity Polyarthralgia Home Medications atorvastatin 80 mg tablet 80 mg PO DAILY CHOLESTEROL 05/02/21 [History Last Taken 05/23/22] cholecalciferol (vitamin D3) 25 mcg (1,000 unit) capsule 25 mcg PO DAILY vitamin 05/02/21 [History Last Taken 05/24/22] ipratropium 0.5 mg-albuterol 3 mg (2.5 mg base)/3 mL nebulization soln 3 ml inhalation 4X/DAY PRN sob 05/02/21 [History Last Taken 05/23/22] liothyronine 25 mcg tablet 25 mcg PO DAILY THYROID 05/02/21 [History Last Taken 05/24/22] omega-3 fatty acids-vitamin E 1,000 mg capsule 2 cap PO BID SUPPLEMENT 05/02/21 [History Last Taken 05/24/22] tiotropium bromide 18 mcg capsule with inhalation device (Spiriva with HandiHaler) 18 mcg inhalation DAILY SOB 05/02/21 [History Last Taken 05/24/22] vitamins A,C,D-euwa-jlbawp 4,296 mcg-226 mg-90 mg capsule (PreserVision AREDS) 1 cap PO BID vitamin 12/13/21 [History Last Taken 05/24/22] lisinopril 20 mg tablet (Zestril) 20 mg PO DAILY blood pressure 03/12/22 [History Last Taken 05/24/22] aspirin 81 mg chewable tablet 81 mg PO DAILY@0800 anticoagulant 04/12/22 [History Last Taken 05/24/22] carvedilol 6.25 mg tablet 6.25 mg PO BID blood pressure 04/12/22 [History Last Taken 05/24/22] amlodipine 5 mg tablet 5 mg PO DAILY #90 tabs 05/02/22 [Rx Last Taken 05/24/22] glimepiride 2 mg tablet 2 mg PO DAILY DM 05/24/22 [History Last Taken 05/24/22] metformin 500 mg tablet 500 mg PO BID DM 05/24/22 [History Last Taken 05/24/22] furosemide 40 mg tablet (Lasix) 40 mg PO DAILY #90 tabs 07/06/22 [Rx Last Taken Unknown] Allergy/AdvReac Type Severity Reaction Status Date / Time codeine AdvReac Upset Verified 11/16/22 16:26 Stomach Family History Mother CVA (cerebral vascular accident) Heart disease Myocardial infarction Hx of CABG Hypertension Father CVA (cerebral vascular accident) Heart disease Surgical History S/P cataract extraction Social History household members: none housing: house Smoking Status: Former smoker how long ago did patient quit smoking: Quit 2010, prior 1 ppd since teen. alcohol intake: former year quit: 2010 substance use type: does not use ROS ROS ED ROS Narrative A complete review of systems was performed and is negative except as documented in the history of present illness. Some specific details below. Constitutional: No recent fevers or chills. EYE: No acute visual change but he states his vision is not as good as it used to be. ENT: No difficulty swallowing. No swelling. No pain. No reflux symptoms. CV: See history of present illness. No chest pain now. It sounds like the last time he had chest pain is when they did the heart catheterization. It was during the actual procedure not prior to it. Respiratory: See history of present illness. GI: No abdominal pain. No nausea vomiting diarrhea. No blood in stool. : No frequency dysuria or hematuria. Musculoskeletal: No recent trauma. No pains. No known swelling. He states he has a history of gout but he is not having symptoms of it now. Skin: No rash. Nondiaphoretic. Neuro: No weakness or numbness. Endocrine: No polyuria or polydipsia. EXAM Physical Exam Narrative Exam Narrative: CONSTITUTIONAL: Patient is nontoxic in appearance. The patient looks comfortable. Work of breathing looks normal. He does seem very anxious. But he is not having trouble breathing. It his saturations are good. HEENT: No notable trauma. Mucous membranes moist. EYES: No notable conjunctival injection. No proptosis. Question mild pallor. NECK:No JVD. No stridor. CARDIOVASCULAR: Regular rate. Regular rhythm. No notable murmur that I can hear despite his history of aortic stenosis. It is sometimes difficult to have him pause his talking to listen clearly. But I am not able to hear any definitive murmur. There does appear to be some mild JVD. RESPIRATORY: No respiratory distress. Breathing is unlabored. No significant wheezes. With forced expiration there is a slight wheeze. No rhonchi. He does appear to have basilar rales on exam. These do not clear with deep breath. No indication of pain with a deep breath. Oxygen level is normal at 97% on his 2 L which is his normal oxygen level. GASTROINTESTINAL: Not distended. Bowel sounds are normal. No tenderness. GENITOURINARY: No tenderness over the bladder. No CVA tenderness. MUSCULOSKELETAL: Atraumatic. Trace bilateral equal peripheral edema. No cord. No tenderness along the deep venous system. No asymmetry. No distended veins. NEUROLOGICAL: Patient is alert and appropriate. No focal deficit noted. SKIN: No noted rashes. No diaphoresis. Mild pallor. PSYCHIATRIC: Patient is a bit anxious. But he is not confused. Const Vital Signs: 11/16/22 16:26 11/16/22 16:30 11/16/22 16:30 Temperature 98.1 F Temperature Source Oral Pulse Rate 104 H 103 H Respiratory Rate 24 H 22 H Respiratory Effort Labored Respiratory Pattern Tachypnea Blood Pressure 150/82 H 132/64 H Blood Pressure Mean 104 86 Pulse Ox 97 Oxygen Delivery Method Nasal Cannula Nasal Cannula Oxygen Flow Rate (L/min) 2 2 11/16/22 16:47 11/16/22 16:51 Temperature Temperature Source Pulse Rate 99 Respiratory Rate 18 Respiratory Effort Respiratory Pattern Normal Blood Pressure Blood Pressure Mean Pulse Ox Oxygen Delivery Method Nasal Cannula Oxygen Flow Rate (L/min) 2 MDM MDM MDM Narrative Medical decision making narrative: Patient CBC shows worsening of his anemia. This was down to the tens and 11's beginning of the year. Its been drifting down to 9 and now at 6 4. He denies black or bloody stools. He is only on aspirin. He denies history of ever having a transfusion. Patient's electrolytes also show worsening creatinine. His baseline is probably about 1.7-1.9 is now 2.9 indicating an acute kidney injury. I am wondering if this is because he states he is short of breath and that is hard to get around the house and he may not be drinking as much. Note his glucose was also slightly elevated to 35. Troponin is negative despite some long-term symptoms. Patient's beta natruretic peptide is also negative. My independent her potation of his chest x-ray and the final reading shows no acute process. I think this patient's dyspnea likely is worsening. It is hard to get the details of this from him but he did choose today to come in. It is likely due to a combination of chronic COPD, oxygen dependence, CHF and now he has new anemia on top of this. I did do a rectal exam on him. There is no sign of bleeding. The stool is light atkins. Its not red and its not black. I did send off a Hemoccult but he is grossly negative. I discussed case with the hospitalist. With his weakness, living alone, significant worsening anemia and acute kidney injury I think hospitalization is necessary. Lab Data Attestation: I reviewed the patient's lab results. Labs: Laboratory Results - last 24 hr 11/16/22 16:40 WBC 5.7 RBC 2.13 L Hgb 6.4 L Hct 20.9 L MCV 98.1 H MCH 30.0 MCHC 30.6 L RDW Std Deviation 50.7 H RDW Coeff of John 14.6 Plt Count 124 L MPV 10.9 Immature Gran % (Auto) 0.400 Neut % (Auto) 67.7 Lymph % (Auto) 19.8 [place] % (Auto) 6.2 Eos % (Auto) 5.5 H Baso % (Auto) 0.4 Absolute Neuts (auto) 3.8 Absolute Lymphs (auto) 1.12 Nucleated RBC % 0 Sodium 139 Potassium 5.1 Chloride 103 Carbon Dioxide 29.0 Anion Gap 7 BUN 85 H Creatinine 2.91 H Estim Creat Clear Calc 16.73 Est GFR (MDRD) Af Amer 27 L Est GFR (MDRD) Non-Af 22 L BUN/Creatinine Ratio 29.2 H Glucose 235 H Calcium 9.1 Troponin I High Sens 25 B-Natriuretic Peptide 50.7 Radiography Diagnostic Testing: Clinical Impression(s) from Imaging Studies Chest X-Ray 11/16/22 17:00 IMPRESSION: Normal x-ray examination of the chest. Electronically Signed: Lalit Lamar MD at 17:47 EDT , EKG Initial EKG: Comments: My independent interpretation of the patient's EKG shows sinus rhythm with first-degree AV block. Borderline tachycardia with overall rate of 97. There is some baseline variation and motion artifact but no ectopy. SD interval is long. QRS duration and QTc are normal. Management Discussion w/another healthcare provider: Hospitalist Discharge Plan Triage Chief Complaint: Shortness of Breath ED Provider: Lonnie Moreno Dx/Rx/DC Orders Clinical Impression: Acute kidney injury, Acute anemia, Acute dyspnea, Oxygen dependent Prescriptions: No Action amlodipine 5 mg tablet 5 mg PO DAILY Qty: 90 3RF furosemide [Lasix] 40 mg tablet 40 mg PO DAILY Qty: 90 3RF atorvastatin 80 mg tablet 80 mg PO DAILY Patient Comments: TAKE 1 TABLET BY MOUTH ONCE DAILY ipratropium-albuterol 0.5 mg-3 mg(2.5 mg base)/3 mL solution for nebulization 3 ml inhalation 4X/DAY PRN (Reason: sob) Patient Comments: inhale contents of 1 vial ( 3 milliliters ) in nebulizer by mouth... (REFER TO PRESCRIPTION NOTES). liothyronine 25 mcg tablet 25 mcg PO DAILY Patient Comments: TAKE 1 TABLET BY MOUTH ONCE DAILY FOR 90 DAYS Spiriva with HandiHaler 18 mcg capsule, w/inhalation device 18 mcg INHALATION DAILY Patient Comments: INHALE THE CONTENTS OF 1 CAPSULE TWICE EACH TIME VIA HANDIHALER ONCE DAILY cholecalciferol (vitamin D3) 25 mcg (1,000 unit) Capsule 25 mcg PO DAILY omega-3 fatty acids-vitamin E 1,000 mg Capsule 2 cap PO BID PreserVision AREDS [id number] [id number] Capsule 1 cap PO BID lisinopril [Zestril] 20 mg tablet 20 mg PO DAILY Hold Instructions: Resume on 03/18/22. carvedilol 6.25 mg tablet 6.25 mg PO BID aspirin 81 mg tablet,chewable 81 mg PO DAILY@0800 metformin 500 mg tablet 500 mg PO BID Patient Comments: take 1 tablet by mouth twice a day glimepiride 2 mg tablet 2 mg PO DAILY Patient Comments: take 1 tablet by mouth once daily WITH FIRST MEAL OF THE DAY Primary Care Provider: Adrianna Nichols Referrals: Adrianna Nichols DO [Primary Care Provider] - Disposition Disposition: [facility]
[2022-11-16] MEDS: Ipratropium/Albuterol Sulfate 3 ML AMPUL.NEB INHALATION (16:46)
[2022-11-16 16:52] LABS: Absolute Lymphocyte Count 1.12 X10^3/uL (0.83-4.51); Absolute Neutrophil Count 3.8 X10^3/uL (2.0-7.7); Basophil# 0.02 X10^3/uL; Basophil% 0.4 % (0-1); Eosinophil# 0.31 X10^3/uL; Eosinophils% 5.5 % (0-5); Hematocrit 20.9 % (40-54); Hemoglobin 6.4 g/dL (13.0-16.5); Lymphocyte # 1.12 X10^3/ul (0.83-4.51); Lymphocyte % 19.8 % (19-41); Mean Corp Hgb Conc 30.6 g/dL (32-36); Mean Corpuscular Volume 98.1 fL (80-94); Mean Platelet Vol. 10.9 fl (6.2-12.0); Monocyte# 0.35 X10^3/uL; Monocyte% 6.2 % (0-10); NRBC Flagged by Analyzer 0 % (0-5); Neutrophil # 3.84 X10^3/uL (2.7-7.7); Neutrophil % 67.7 % (47-70); Platelet Count 124 K/mm3 (150-450); RBC Distribution Width CV 14.6 % (11.6-14.6); RBC Distribution Width SD 50.7 fl (35.1-43.9); Red Blood Count 2.13 M/mm3 (4.6-6.2); White Blood Count 5.7 K/mm3 (4.4-11.0)
--- NOTE | 2022-11-16 17:00 | RAD_ITS ---
STUDY: X-RAY CHEST REASON FOR EXAM: Male, 82 years old. SOB TECHNIQUE: Single frontal view of the chest. COMPARISON: October 22, 2022 FINDINGS: The lungs are clear and expanded. There is no demonstrated pleural abnormality. Normal size heart. Normal mediastinum and purnima. Normal visualized pulmonary arteries. Normal visualized aortic arch and descending thoracic aorta. Normal visualized thoracic spine. Normal visualized ribs, clavicles, and shoulders. There is no demonstrated abnormality of the visualized soft tissue structures of the upper abdomen. RAD/Chest 1 View (Portable) IMPRESSION: Normal x-ray examination of the chest. Electronically Signed: Lalit Lamar MD at 17:47 EDT ,
[2022-11-16 17:15] LABS: Anion Gap 7 (5-15); BUN 85 mg/dL (7-18); BUN/Creat Ratio 29.2 RATIO (10-20); Calcium,Total 9.1 mg/dL (8.5-10.1); Chloride 103 mmol/L (98-107); Creatinine, Serum 2.91 mg/dL (0.70-1.30); EST Glomerular Filtration Rate 22 mL/min (>60); Est Glom Filt Rate - Afr Amer 27 mL/min (>60); Estimated Creatinine Clearance 16.73 ml/min; Glucose 235 mg/dL (74-106); Potassium 5.1 mmol/L (3.5-5.1); Sodium Level 139 mmol/L (136-145); Troponin-I HS 25 pg/mL (3.0-78.0)
[2022-11-16 17:30] LABS: BNP,B-Type NATRIURETIC PEPTIDE 50.7 pg/mL (0-100)
--- NOTE | 2022-11-16 18:45 | HP.PCM_ITS ---
HPI - General General Date of Admission: 11/16/22 Date of Service: 11/16/22 Chief Complaint: shortness of breath HPI Narrative BEULAH BRIGHT, is a 82 M with a PMH as outlined who presents via the ED on 11/16/2022 with a complaint of shortness of breath. This has been going on for at least 3 months. He called the EMS today because of his shortness of breath. He denied any hest pain, palpitations, dizziness, nausea, vomiting or any other s ymptoms. Reviwe of systems was otherwise negative. He says he was recently taken off one medication, but doesnt know which medication it is. He has COPD. He is unable to tell whether he has gained weight or otherwise. Vitals in the ED were temp of 98.1F, AL of 99, BP of 132/64, RR of 22 and he was saturating at 97% on 2L of oxygen. CBC shwoed hb of 6.4, wbc of 5.7, platelets of 124; chemistry showed sodium of 139, potassium of 5.1, Cr of 2.91 and BNP was only 50.7. COVID test was negative and CXR showed no acute cardiopulmonary process. He denied any recent history of dark stools, and is on aspirin. He has no history of over the counter pain meds. He is being admitted to be managed for acute on chronic anemia likely due to upper GI bleed. [facility] Medical History Aortic valve stenosis, acquired Atherosclerotic heart disease of [place] coronary artery without angina pectoris CAD (coronary artery disease) Chronic respiratory failure with hypoxia COPD (chronic obstructive pulmonary disease) Diabetes mellitus, type 2 Former tobacco use History of CAD (coronary artery disease) History of left heart catheterization (LHC) (~03/15/22) HLD (hyperlipidemia) HTN (hypertension) Hypothyroidism Mild left ventricular hypertrophy Nonrheumatic aortic (valve) stenosis Obesity Polyarthralgia Home Medications atorvastatin 80 mg tablet 80 mg PO DAILY CHOLESTEROL 05/02/21 [History Last Taken 05/23/22] cholecalciferol (vitamin D3) 25 mcg (1,000 unit) capsule 25 mcg PO DAILY vitamin 05/02/21 [History Last Taken 05/24/22] ipratropium 0.5 mg-albuterol 3 mg (2.5 mg base)/3 mL nebulization soln 3 ml inhalation 4X/DAY PRN sob 05/02/21 [History Last Taken 05/23/22] liothyronine 25 mcg tablet 25 mcg PO DAILY THYROID 05/02/21 [History Last Taken 05/24/22] omega-3 fatty acids-vitamin E 1,000 mg capsule 2 cap PO BID SUPPLEMENT 05/02/21 [History Last Taken 05/24/22] tiotropium bromide 18 mcg capsule with inhalation device (Spiriva with Handi Haler) 18 mcg inhalation DAILY SOB 05/02/21 [History Last Taken 05/24/22] vitamins A,C,M-zuyx-adwxsd 4,296 mcg-226 mg-90 mg capsule (PreserVision AREDS) 1 cap PO BID vitamin 12/13/21 [History Last Taken 05/24/22] lisinopril 20 mg tablet (Zestril) 20 mg PO DAILY blood pressure 03/12/22 [History Last Taken 05/24/22] aspirin 81 mg chewable tablet 81 mg PO DAILY@0800 anticoagulant 04/12/22 [History Last Taken 05/24/22] glimepiride 2 mg tablet 2 mg PO DAILY DM 05/24/22 [History Last Taken 05/24/22] furosemide 40 mg tablet (Lasix) 40 mg PO DAILY diuretic #90 tabs 07/06/22 [Rx Last Taken Unknown] empagliflozin 25 mg tablet (Jardiance) 25 mg PO DAILY dm 11/16/22 [History Last Taken Unknown] Allergy/AdvReac Type Severity Reaction Status Date / Time codeine AdvReac Upset Verified 11/16/22 16:26 Stomach Family History Mother CVA (cerebral vascular accident) Heart disease Myocardial infarction Hx of CABG Hypertension Father CVA (cerebral vascular accident) Heart disease Surgical History S/P cataract extraction Social History household members: none housing: house Smoking Status: Former smoker how long ago did patient quit smoking: Quit 2010, prior 1 ppd since teen. alcohol intake: former year quit: 2010 substance use type: does not use ROS Constitutional Constitutional: Reports fatigue, malaise and weakness; Denies anorexia, change in weight, chills or fever(s) Eyes Eyes: Denies change in vision ENT HEENT: Denies dysphagia or headache(s) Cardiovascular Cardiovascular: Denies chest pain, edema, orthopnea, palpitations, paroxysmal nocturnal dyspnea or syncope Respiratory/Chest Respiratory/Chest: Reports shortness of breath at rest and shortness of breath with exertion; Denies cough or wheezing Gastrointestinal Gastrointestinal: Denies abdominal pain, constipation, diarrhea, dyspepsia, hematochezia, melena, nausea or vomiting Genitourinary Genitourinary: Denies dysuria or urinary frequency Musculoskeletal Musculoskeletal: Denies back pain or extremity pain Neurologic Neurologic: Denies confusion, dizziness, focal weakness, seizures or weakness Psychiatric Psychiatric: Denies anxiety or depression Endocrine Endocrinology: Denies change in body appearance Vital Signs Vital Signs Vital Signs: 11/16/22 16:26 11/16/22 16:30 11/16/22 16:30 Temperature 98.1 F Temperature Source Oral Pulse Rate 104 H 103 H Respiratory Rate 24 H 22 H Respiratory Effort Labored Respiratory Pattern Tachypnea Blood Pressure 150/82 H 132/64 H Blood Pressure Mean 104 86 Pulse Ox 97 Oxygen Delivery Method Nasal Cannula Nasal Cannula Oxygen Flow Rate (L/min) 2 2 11/16/22 16:47 11/16/22 16:51 Temperature Temperature Source Pulse Rate 99 Respiratory Rate 18 Respiratory Effort Respiratory Pattern Normal Blood Pressure Blood Pressure Mean Pulse Ox Oxygen Delivery Method Nasal Cannula Oxygen Flow Rate (L/min) 2 Weight Weight: 196 lb 10.437 oz Body Mass Index (BMI) 32.7 Physical Exam Const alert, oriented x3 and no apparent distress General Appearance: cooperative HEENT normocephalic, head/scalp atraumatic and moist oral mucous membranes Eyes PERRL and EOMs intact bilaterally Neck no lymphadenopathy, supple and no JVD Lymph Lymphatic: no lymphadenopathy noted and no lymphedema noted Resp Resp Narrative: few crackles bilaterally, on 2L of oxygen by nasal canula Cardio regular rate, regular rhythm, S1 normal heart sound, S2 normal heart sound and no murmurs GI normal to inspection, nondistended, normoactive bowel sounds GI Narrative: abdomen soft, nontender, no organomegaly. Extremity normal capillary refill, no clubbing, cyanosis or edema and no calf tenderness Skin General Skin Exam: no breakdown and turgor normal Neuro CN's II-XII intact bilaterally, no focal motor deficits and no sensory deficits noted Motor Exam: strength 5/5 throughout Psych thought process normal, cooperative and affect normal Appearance: appropriate Results Lab / Micro Data 11/16/22 16:40 11/16/22 16:40 Labs: Laboratory Results - last 24 hr 11/16/22 16:40: WBC 5.7, RBC 2.13 L, Hgb 6.4 L, Hct 20.9 L, MCV 98.1 H, MCH 30.0, MCHC 30.6 L, RDW Std Deviation 50.7 H, RDW Coeff of John 14.6, Plt Count 124 L, MPV 10.9, Immature Gran % (Auto) 0.400, Neut % (Auto) 67.7, Lymph % (Auto) 19.8, [place] % (Auto) 6.2, Eos % (Auto) 5.5 H, Baso % (Auto) 0.4, Absolute Neuts (auto) 3.8, Absolute Lymphs (auto) 1.12, Nucleated RBC % 0, Sodium 139, Potassium 5.1, Chloride 103, Carbon Dioxide 29.0, Anion Gap 7, BUN 85 H, Creatinine 2.91 H, Estim Creat Clear Calc 16.73, Est GFR (MDRD) Af Amer 27 L, E st GFR (MDRD) Non-Af 22 L, BUN/Creatinine Ratio 29.2 H, Glucose 235 H, Calcium 9.1, Troponin I High Sens 25, B-Natriuretic Peptide 50.7 Micro: Microbiology 11/16/22 16:45 Nasal Secretion SARS-CoV-2 Antigen (Rapid) - Final Radiology Impression Chest X-Ray 11/16/22 17:00 IMPRESSION: Normal x-ray examination of the chest. Electronically Signed: Lalit Lamar MD at 17:47 EDT Reading Location ID and State: [facility] / [place] Tel , Service support , Assessment & Plan Assessment/Plan (1) Anemia: (2) GI bleed: PLAN: Plan #Acute on chronic anemia due to probable upper GI bleed * admit to PCU * came in with shortness of breath that had been worsening over the last few months. * BNP only 50.7, and CXR showed no acute cardiopulmonary process * Hb is 6.4, baseline Hb is ~10. * transfuse with 2 units of PRBCs; give a dose of IV lasix 20mg x 1 in between the units of blood. * keep NPO * consult gastroenterology * IV pantoprazole 40mg bid * hold aspirin * #COPD: * doesnt appear to be in exacerbation. Breathing treatment with bronchodilators. * I think the shortness of breath is likely due to the acute on chronic anemia due to GI bleed. * #GUZMAN on CKD * Cr is 2.91, with a baseline of ~ 1.5 * BUN/Cr ratio is > 20, therefore GUZMAN on CKD is likely due to GI bleed. * hydrate very gently with iVF * if Cr doesnt improve, consult nephrology * #Hypertension; on amlodipine and carvedilol. Hold lisinopril due to GUZMAN #HFpEF: * not in exacerbation. On furosemide. * Will hold due to GUZMAN on CKD. Has known EF of 65% * had cardiac cath in March 2022 which shwoed multivessel CAD and aortic valve calcificadtion. #Mild aortic stenosis: * 2D echo from March 2022 showed EF of 65% with mild concentric LV hypertrophy and mild aortic stenosis * #DVT prophylaxis: heparin Code status: DNRCCA no intubation * Patient counseled extensively about different types of CODE STATUS including full code, DNR CCA and DNR CCA. Patient elects to be full code. Patient states that his had to be intubated and she really suffered and he does not want to go through that. Patient was tearful while discussing this and was adamant that he did not want CPR or intubation and just wanted to be let go if his heart stopped or he needed a ventilator. He however wants to be treated for any medical condition and he has up untilthe point where he either needs intubation or CPR * total [id number] time 18 minutes. Charges/Coding Visit Charges Inpatient E&M: 23029 Init Hosp L3 Procedures Hospitalists Procedures: 21965 Advncd Care Plan 30 Min
--- NOTE | 2022-11-16 19:36 | CM.ED ---
Social Work/CM Assessment SW introduced self and role to patient. Pt alert and oriented and able to answer questions appropriately. Care providers, pharmacy, and demographics verified. Pt reports he is independent at home and takes care of all his own needs. Pt reports he uses O2 -2L which he receives from [facility]. Pt reports he is able to go to appointments, prepare meals, and household tasks. Pt reports a BP cuff and pulse ox. Pt denies any other devices. Patient plans to go home without assistance. SW/CM to follow for needs. Plan: Discharge home, no needs if medically able. Ami Beltre [employer], SIDE LASTER
--- NOTE | 2022-11-16 23:00 | CON.PCM.GI_ITS ---
HPI Consult Data Date of Consult: 11/16/22 HPI Narrative Reason for Consultation: Anemia HPI Narrative: BEULAH BRIGHT, is a 82 M who presents with shortness of breath. He has a history of COPD and CHF. recently was diagnosed with worsening CKD. His Lasix was stopped due to his worsening renal function.Patient states he has had dyspn ea for at least 3 months. In March 2022 for non-ST elevated myocardial infarction, acute congestive heart failure, hypertension, and hyperlipidemia. He had an echocardiogram that showed ejection fraction of 65%, mild concentric LVH, and mild aortic valve stenosis. He underwent a heart catheterization on 03/15/2022 that showed left main with 25% stenosis, LAD with mild luminal irregularities, diagonal 1 with 50% stenosis, LCx with mild luminal irregularities, and RCA with mild luminal irregularities. Medical therapy was recommended. He was diuresed and discharged home. He returned to the Emergency Department with ongoing shortness of breath. He was admitted and diuresed. He also has a past medical history of COPD, diabetes mellitus type 2, and hypothyroidism. Vitals in the ED were temp of 98.1F, [place] of 99, BP of 132/64, RR of 22 and he was saturating at 97% on 2L of oxygen. CBC shwoed hb of 6.4, wbc of 5.7, platelets of 124; chemistry showed sodium of 139, potassium of 5.1, Cr of 2.91 and BNP was only 50.7. COVID test was negative and CXR showed no acute cardiopulmonary pro cess. He denied any recent history of dark stools, and is on aspirin. He has no history of over the counter pain meds. He is being admitted to be managed for acute on chronic anemia likely due to upper GI bleed. [facility] Medical History (Updated 11/16/22 @ 19:57 by Christine Richmond) Aortic valve stenosis, acquired Atherosclerotic heart disease of [place] coronary artery without angina pectoris CAD (coronary artery disease) Chronic respiratory failure with hypoxia COPD (chronic obstructive pulmonary disease) Diabetes Diabetes mellitus, type 2 Former smoker Former tobacco use History of CAD (coronary artery disease) History of left heart catheterization (LHC) (~03/15/22) HLD (hyperlipidemia) HTN (hypertension) Hypertension Hypothyroidism Kidney disease Mild left ventricular hypertrophy Myocardial infarct Nonrheumatic aortic (valve) stenosis Obesity On home oxygen therapy Polyarthralgia TIA (transient ischemic attack) Home Medications atorvastatin 80 mg tablet 80 mg PO DAILY CHOLESTEROL 05/02/21 [History Last Taken 05/23/22] cholecalciferol (vitamin D3) 25 mcg (1,000 unit) capsule 25 mcg PO DAILY vitamin 05/02/21 [History Last Taken 05/24/22] ipratropium 0.5 mg-albuterol 3 mg (2.5 mg base)/3 mL nebulization soln 3 ml inhalation 4X/DAY PRN sob 05/02/21 [History Last Taken 05/23/22] liothyronine 25 mcg tablet 25 mcg PO DAILY THYROID 05/02/21 [History Last Taken 05/24/22] omega-3 fatty acids-vitamin E 1,000 mg capsule 2 cap PO BID SUPPLEMENT 05/02/21 [History Last Taken 05/24/22] tiotropium bromide 18 mcg capsule with inhalation device (Spiriva with HandiHaler) 18 mcg inhalation DAILY SOB 05/02/21 [History Last Taken 05/24/22] vitamins A,C,L-rjdn-qnzefo 4,296 mcg-226 mg-90 mg capsule (PreserVision AREDS) 1 cap PO BID vitamin 12/13/21 [History Last Taken 05/24/22] lisinopril 20 mg tablet (Zestril) 20 mg PO DAILY blood pressure 03/12/22 [History Last Taken 05/24/22] aspirin 81 mg chewable tablet 81 mg PO DAILY@0800 anticoagulant 04/12/22 [History Last Taken 05/24/22] glimepiride 2 mg tablet 2 mg PO DAILY DM 05/24/22 [History Last Taken 05/24/22] furosemide 40 mg tablet (Lasix) 40 mg PO DAILY diuretic #90 tabs 07/06/22 [Rx Last Taken Unknown] empagliflozin 25 mg tablet (Jardiance) 25 mg PO DAILY dm 11/16/22 [History Last Taken Unknown] Allergy/AdvReac Type Severity Reaction Status Date / Time codeine AdvReac Upset Verified 11/16/22 16:26 Stomach Family History Mother CVA (cerebral vascular accident) Heart disease Myocardial infarction Hx of CABG Hypertension Father CVA (cerebral vascular accident) Heart disease Surgical History S/P cataract extraction Social History household members: none housing: house Smoking Status: Former smoker how long ago did patient quit smoking: Quit 2011, prior 1 ppd since teen. alcohol intake: former year quit: 2010 substance use type: does not use ROS Constitutional Constitutional: Reports fatigue, malaise and weakness; Denies anorexia, change in weight, chills or fever(s) Eyes Eyes: Denies change in vision ENT HEENT: Denies dysphagia or headache(s) Cardiovascular Cardiovascular: Denies chest pain, edema, orthopnea, palpitations, paroxysmal nocturnal dyspnea or syncope Respiratory/Chest Respiratory/Chest: Reports shortness of breath at rest and shortness of breath with exertion; Denies cough or wheezing Gastrointestinal Gastrointestinal: Denies abdominal pain, constipation, diarrhea, dyspepsia, hem atochezia, melena, nausea or vomiting Genitourinary Genitourinary: Denies dysuria or urinary frequency Musculoskeletal Musculoskeletal: Denies back pain or extremity pain Neurologic Neurologic: Denies confusion, dizziness, focal weakness, seizures or weakness Psychiatric Psychiatric: Denies anxiety or depression Endocrine Endocrinology: Denies change in body appearance Physical Exam Const alert, oriented x3 and no apparent distress General Appearance: cooperative HEENT normocephalic, head/scalp atraumatic and moist oral mucous membranes Eyes PERRL and EOMs intact bilaterally Neck no lymphadenopathy, supple and no JVD Lymph Lymphatic: no lymphadenopathy noted and no lymphedema noted Resp Resp Narrative: few crackles bilaterally, on room air. Cardio regular rate, regular rhythm, S1 normal heart sound, S2 normal heart sound and no murmurs GI normal to inspection, nondistended, normoactive bowel sounds GI Narrative: abdomen soft, nontender, no organomegaly. Extremity normal capillary refill, no clubbing, cyanosis or edema and no calf tenderness Skin General Skin Exam: no breakdown and turgor normal Neuro CN's II-XII intact bilaterally, no focal motor deficits and no sensory deficits noted Motor Exam: strength 5/5 throughout Psych thought process normal, cooperative and affect normal Appearance: appropriate Lab / Micro Data 11/17/22 05:30 11/17/22 05:30 Labs: Laboratory Results - last 24 hr 11/16/22 18:50: Antibody Screen NEGATIVE, Crossmatch See Detail 11/17/22 05:30: WBC 5.4, RBC 2.84 L, Hgb 8.5 L, Hct 27.3 L, MCV 96.1 H, MCH 29.9, MCHC 31.1 L, RDW Std Deviation 50.0 H, RDW Coeff of John 14.4, Plt Count 102 L, MPV 11.2, Immature Gran % (Auto) 0.200, Neut % (Auto) 58.6, Lymph % (Auto) 24.6, [place] % (Auto) 7.1, Eos % (Auto) 8.8 H, Baso % (Auto) 0.7, Absolute Neuts (auto) 3.1, Absolute Lymphs (auto) 1.32, Nucleated RBC % 0, Sodium 141, Potassium 4.6, Chloride 108 H, Carbon Dioxide 28.0, Anion Gap 5, BUN 79 H, Creatinine 2.48 H, Estim Creat Clear Calc 19.63, Est GFR (MDRD) Af Amer 32 L, Est GFR (MDRD) Non-Af 27 L, BUN/Creatinine Ratio 31.9 H, Glucose 125 H, Calcium 8.8, Total Bilirubin 1.30 H, AST 17, ALT 23, Alkaline Phosphatase 61, Total Protein 6.4, Albumin 2.8 L, Globulin 3.6, Albumin/Globulin Ratio 0.8 L 11/17/22 05:33: POC Glucose 122 H 11/17/22 16:13: POC Glucose 177 H Micro: Microbiology 11/16/22 19:10 Stool Stool Occult Blood (CLARY) - Final 11/16/22 16:45 Nasal Secretion SARS-CoV-2 Antigen (Rapid) - Final Assessment & Plan Assessment/Plan (1) Anemia: (2) GI bleed: PLAN: Plan 82-year-old with past medical history of CHF, CAD status post non-ST segment elevation DC on medical therapy, COPD on oxygen who arrives here today with worsening shortness of breath and discomfort in the anemic to hemoglobin of 6.4. He was transfused 2 units of packed red blood cell. Likely upper GI bleed greater than lower GI bleed. He will need to undergo an upper endoscopy and if negative he will need a colonoscopy. He was explained al ternatives, risk, benefits including outstanding bleeding, infection, sepsis, perforation, need for emergent surgery . Have an ASA of 3 Charges/Coding Visit Charges Inpatient E&M: 99967 Init Hosp L3
[2022-11-17] VITALS (21 sets, daily range): BP systolic 112–150; BP diastolic 43–65; PULSE 81–96; RESP 16–20; TEMP 36.4–37.1; O2SAT 92–100
--- NOTE | 2022-11-17 | GASB_PTH ---
PATIENT: BEULAH BRIGHT LOC: [facility] U#:[id number] AGE/SX: 82/M ROOM: [facility] RE11/16/[address]: Dr. Irwin Godwin MD : 1940 BED: 1 DIS: 11/18/2022 SPEC #: [id number] RECD: 11/17/22 13:43 STATUS: CHRISTIANO REPilar #: [id number] BUZZ: 11/17/22 00:[address]: Fredy Joy DEPT: SURGICAL PATHOLOGY RECD BY: Gregorio Hernandez ENTERED: 11/20/22 10:08 SP TYPE: Gastric Bx OTHR DR: MD Dr. Adrianna Servin DO Dr. Nana Yaa Koram, MD Tissues: Gastric mucous membrane Procedures: Surgery Specimen Level IV Comments: @ Ordering doctor for SUIV edited from to @ by CELINA at 11/20/22 1334 @ Submitting doctor edited from to @ by MIRNAOD at 11/20/22 1334 HEADER OPERATION: EGD PRE-OP DIAGNOSIS: Anemia, GI bleed TISSUE SUBMITTED: Gastric ulcer biopsy MICROSCOPIC DIAGNOSIS Gastric ulcer, biopsy: Fragments of gastric mucosa with acute and chronic inflammation. IRIS:richard 11/21/2022 COMMENT The results of immunohistochemistry for Helicobacter pylori will be reported separately ([id number]). MICROSCOPIC DESCRIPTION Slides are reviewed. GROSS DESCRIPTION Received in fixative is one container labeled with the patient's name and designated gastric ulcer biopsy. The specimen consists of two irregular fragments of light atkins soft tissue that in aggregate measure 0.8 x 0.5 x 0.1 cm. The specimen is totally submitted in one cassette. / IRIS:richard 11/20/2022 TC:2 CPT: 48217
[2022-11-17] MEDS: Furosemide 20 MG/2 ML VIAL IV (00:45)
[2022-11-17] MEDS: 0.9% Normal Saline (1000mL) 1,000 ML 100 ML IV ×2 (04:40→17:30)
[2022-11-17] MEDS: Pantoprazole Sodium 40 MG in 0.9% Normal Saline (100mL MB+) 100 ML 330 MG IV ×3 (04:40→21:27)
[2022-11-17] MEDS: Ceftriaxone 1 GM/50 ML BAG IV ×2 (04:40→21:26)
[2022-11-17 06:01] LABS: Absolute Lymphocyte Count 1.32 X10^3/uL (0.83-4.51); Absolute Neutrophil Count 3.1 X10^3/uL (2.0-7.7); Basophil# 0.04 X10^3/uL; Basophil% 0.7 % (0-1); Eosinophil# 0.47 X10^3/uL; Eosinophils% 8.8 % (0-5); Hematocrit 27.3 % (40-54); Hemoglobin 8.5 g/dL (13.0-16.5); Lymphocyte # 1.32 X10^3/ul (0.83-4.51); Lymphocyte % 24.6 % (19-41); Mean Corp Hgb Conc 31.1 g/dL (32-36); Mean Corpuscular Hgb 29.9 pg (27.0-32.0); Mean Corpuscular Volume 96.1 fL (80-94); Mean Platelet Vol. 11.2 fl (6.2-12.0); Monocyte# 0.38 X10^3/uL; Monocyte% 7.1 % (0-10); NRBC Flagged by Analyzer 0 % (0-5); Neutrophil # 3.14 X10^3/uL (2.7-7.7); Neutrophil % 58.6 % (47-70); Platelet Count 102 K/mm3 (150-450); RBC Distribution Width CV 14.4 % (11.6-14.6); Red Blood Count 2.84 M/mm3 (4.6-6.2); White Blood Count 5.4 K/mm3 (4.4-11.0)
[2022-11-17 06:06] LABS: Bedside Glucose 122 mg/dL (74-106)
[2022-11-17 06:52] LABS: ALB/GLOB Ratio 0.8 RATIO (0.9-2.4); AST(SGOT) 17 U/L (15-37); Alanine Aminotransfer ALT/SGPT 23 U/L (16-61); Albumin, Serum 2.8 g/dL (3.2-5.0); Alkaline Phosphatase 61 U/L (45-117); Anion Gap 5 (5-15); BUN 79 mg/dL (7-18); BUN/Creat Ratio 31.9 RATIO (10-20); Calcium,Total 8.8 mg/dL (8.5-10.1); Chloride 108 mmol/L (98-107); Creatinine, Serum 2.48 mg/dL (0.70-1.30); EST Glomerular Filtration Rate 27 mL/min (>60); Est Glom Filt Rate - Afr Amer 32 mL/min (>60); Estimated Creatinine Clearance 19.63 ml/min; Globulin 3.6 g/dL (2.2-4.2); Glucose 125 mg/dL (74-106); Potassium 4.6 mmol/L (3.5-5.1); Protein, Total 6.4 g/dL (6.4-8.2); Sodium Level 141 mmol/L (136-145)
[2022-11-17] MEDS: Budesonide Respules 0.5 MG/2 ML AMPUL.NEB. INHALATION ×2 (07:52→17:26)
[2022-11-17] MEDS: Lactated Ringers 1,000 ML 15 ML IV (10:54)
--- NOTE | 2022-11-17 11:30 | IMM_PTH ---
PATIENT: BEULAH BRIGHT LOC: [facility] U#:[id number] AGE/SX: 82/M ROOM: [facility] RE11/16/[address]: Dr. Irwin Godwin MD : 1940 BED: 1 DIS: 11/18/2022 SPEC #: [id number] RECD: 11/20/22 13:33 STATUS: CHRISTIANO REQ #: [id number] BUZZ: 11/17/22 11:[address]: Fredy Joy DEPT: IMMUNOHISTOCHEMISTRY RECD BY: Alia Aguilera ENTERED: 11/20/22 13:33 SP TYPE: IMMUNO OTHR DR: MD Dr. Adrianna Servin DO Dr. Nana Yaa Koram, MD Tissues: Stomach, NOS Procedures: H Pylori (initial) PHYSICIAN & INSTITUTION [place] [id number] SPECIMEN INFORMATION: Tissue Source: Gastric ulcer Clinical Info: Anemia, GI bleed Specimen Number: [id number] CPT code: 59310 METHODOLOGY: Deparaffinized sections of prefer/formalin-fixed tissue or PAP/DQ stained slides are incubated with monoclonal/polyclonal antibodies/oligonucleotide probes. Localization is made via biotin free immunoperoxidase method. Appropriate controls are performed and reacted as expected. Results on target cell population are indicated in the following table: RESULTS: ANTIBODY / CLONE RESULT H Pylori (polyclonal) negative These tests were developed and their performance characteristics determined by [facility]. They may not have been cleared or approved by the U.S. Food and Drug Administration. The FDA has determined that such clearance or approval is not necessary. The above immunohistochemical/dualISH markers are ordered and reviewed by the Pathologist. INTERPRETATION: Gastric ulcer, biopsy: Negative for Helicobacter pylori organisms. SJ:richard 11/21/2022
--- NOTE | 2022-11-17 11:47 | OP.CCLET_ITS ---
11/17/2022 Adrianna Berrios Do Re : Upper GI endoscopy procedure for [place] Agustina This procedure was performed on Thursday, November 17, 2022. My impressions and recommendations are as follows: Impressions : - Normal esophagus. 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 Treated with a heater probe. - Non-bleeding gastric ulcers with no stigmata of bleeding. Biopsied. - Non-bleeding duodenal ulcers with no stigmata of bleeding. Recommendations : - [facility] - Advance diet as tolerated. - Use Protonix (pantoprazole) 40 mg PO BID for 12 weeks. - Use sucralfate tablets 1 gram PO QID for 8 weeks. - Continue present medications. - No aspirin, ibuprofen, naproxen, or other non-steroidal anti-inflammatory drugs for 12 days. My findings are described in the full procedure note, which is enclosed. If I can be of further assistance, please feel free to contact me at . Sincerely, Fredy Joy, 11/17/2022 11:46:43 AM This report has been signed electronically.
--- NOTE | 2022-11-17 11:47 | OP.EGD_ITS ---
Patient Name: Corona West Procedure Date: 11/17/2022 11:26 AM Date of : 1940 Age: 82 Procedure: Upper GI endoscopy Indications: Iron deficiency anemia, Melena Providers: Fredy Joy DO Medicines: Monitored Anesthesia Care Patient Profile: This is an 82 year old male. Refer to note in patient chart for documentation of history and physical. Complications: No immediate complications. Procedure: Pre-Anesthesia Assessment: - Prior to the procedure, a History and Physical was performed, and patient medications and allergies were reviewed. The patient is competent. The risks and benefits of the procedure and the sedation options and risks were discussed with the patient. All questions were answered and informed consent was obtained. Patient identification and proposed procedure were verified by the physician in the pre-procedure area. Mental Status Examination: alert and oriented. Airway Examination: normal oropharyngeal airway and neck mobility. Respiratory Examination: clear to auscultation. CV Examination: normal. Prophylactic Antibiotics: The patient does not require prophylactic antibiotics. Prior Anticoagulants: The patient has taken no anticoagulant or antiplatelet agents. ASA Grade Assessment: II - A patient with mild systemic disease. After reviewing the risks and benefits, the patient was deemed in satisfactory condition to undergo the procedure. The anesthesia plan was to use monitored anesthesia care (MAC). Immediately prior to administration of medications, the patient was re-assessed for adequacy to receive sedatives. The heart rate, respiratory rate, oxygen saturations, blood pressure, adequacy of pulmonary ventilation, and response to care were monitored throughout the procedure. The physical status of the patient was re-assessed after the procedure. After obtaining informed consent, the endoscope was passed under direct vision. Throughout the procedure, the patient's blood pressure, pulse, and oxygen saturations were monitored continuously. The Endoscope was introduced through the mouth, and advanced to the second part of duodenum. The upper GI endoscopy was accomplished without difficulty. The patient tolerated the procedure well. Scope In: 11:38:00 AM Scope Out: 11:41:24 AM Total Procedure Duration Time 0 hours 3 minutes 24 seconds Findings: The examined esophagus was normal. A single 5 mm angiodysplastic lesion with bleeding was found in the gastric antrum. Coagulation for hemostasis using heater probe was successful. Many non-bleeding superficial gastric ulcers with no stigmata of bleeding were found in the gastric body. The largest lesion was 3 mm in largest dimension. Biopsies were taken with a cold forceps for histology. Verification of patient identification for the specimen was done. Estimated blood loss was minimal. Biopsies were taken with a cold forceps for Helicobacter pylori testing. Verification of patient identification for the specimen was done. Estimated blood loss was minimal. Many non-bleeding cratered duodenal ulcers with no stigmata of bleeding were found in the duodenal bulb. The largest lesion was 3 mm in largest dimension. Impression: - Normal esophagus. 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 Treated with a heater probe. - Non-bleeding gastric ulcers with no stigmata of bleeding. Biopsied. - Non-bleeding duodenal ulcers with no stigmata of bleeding. Recommendation: - [facility]. - Advance diet as tolerated. - Use Protonix (pantoprazole) 40 mg PO BID for 12 weeks. - Use sucralfate tablets 1 gram PO QID for 8 weeks. - Continue present medications. - No aspirin, ibuprofen, naproxen, or other non-steroidal anti-inflammatory drugs for 12 days. Procedure Code(s): --- Professional --- 49722, 59, Esophagogastroduodenoscopy, flexible, transoral; with control of bleeding, any method 69568, 51, Esophagogastroduodenoscopy, flexible, transoral; with biopsy, single or multiple CPT copyright 2021 [employer]. All rights reserved. The codes documented in this report are preliminary and upon client director review may be revised to meet current compliance requirements. Fredy Joy DO 11/17/2022 11:46:43 AM This report has been signed electronically. Number of Addenda: 0 Note Initiated On: 11/17/2022 11:26 AM
--- NOTE | 2022-11-17 12:12 | PN_ITS ---
Subjective Subjective Patient seen and examined. HE feels much better today and had no active complaints. REview of systems is otherwise negative. He had EGD this morning which showed normal esophagus, and single bleeding angiodysplastic lesion in the stomac which was treated with a heater probe, as well as nonbleeding gastric ulcers with no stigmata of bleeding and nonbleeding duodenal ulcers with no stigmata of bleeding. His shortness of breath has improved today. Review of systems is otherwise negative. Objective Data Objective Data Vital Signs: Vital Signs Temp Pulse Resp BP Pulse Ox O2 Del Method O2 Flow Rate 97.6 F L 84 16 118/45 L 92 Room Air 3 11/17/22 11:50 11/17/22 11:55 11/17/22 11:55 11/17/22 11:55 11/17/22 11:55 11/17/22 11:55 11/17/22 11:50 Oxygen Flow Rate (L/min) 3 Oxygen Delivery Method Room Air Weight: 186 lb 15.232 oz Body Mass Index (BMI) 31.1 Intake & Output: Intake and Output for Last 24 Hours 11/15/22 11/16/22 11/17/22 23:59 23:59 23:59 Intake Total 0 / 0 1695 / 1695 Output Total 1500 / 1500 Balance 0 / -200 195 / 195 Lab / Micro Data 11/17/22 05:30 11/17/22 05:30 Labs: Laboratory Results - last 24 hr 11/16/22 16:40: WBC 5.7, RBC 2.13 L, Hgb 6.4 L, Hct 20.9 L, MCV 98.1 H, MCH 30.0, MCHC 30.6 L, RDW Std Deviation 50.7 H, RDW Coeff of John 14.6, Plt Count 124 L, MPV 10.9, Immature Gran % (Auto) 0.400, Neut % (Auto) 67.7, Lymph % (Auto) 19.8, Lares % (Auto) 6.2, Eos % (Auto) 5.5 H, Baso % (Auto) 0.4, Absolute Neuts (auto) 3.8, Absolute Lymphs (auto) 1.12, Nucleated RBC % 0, Sodium 139, Potassium 5.1, Chloride 103, Carbon Dioxide 29.0, Anion Gap 7, BUN 85 H, Creatinine 2.91 H, Estim Creat Clear Calc 16.73, Est GFR (MDRD) Af Amer 27 L, Est GFR (MDRD) Non-Af 22 L, BUN/Creatinine Ratio 29.2 H, Glucose 235 H, Calcium 9.1, Troponin I High Sens 25, B-Natriuretic Peptide 50.7 11/16/22 18:50: Antibody Screen NEGATIVE, Crossmatch See Detail 11/17/22 05:30: WBC 5.4, RBC 2.84 L, Hgb 8.5 L, Hct 27.3 L, MCV 96.1 H, MCH 29.9, MCHC 31.1 L, RDW Std Deviation 50.0 H, RDW Coeff of John 14.4, Plt Count 102 L, MPV 11.2, Immature Gran % (Auto) 0.200, Neut % (Auto) 58.6, Lymph % (Auto) 24.6, Lares % (Auto) 7.1, Eos % (Auto) 8.8 H, Baso % (Auto) 0.7, Absolute Neuts (auto) 3.1, Absolute Lymphs (auto) 1.32, Nucleated RBC % 0, Sodium 141, Potassium 4.6, Chloride 108 H, Carbon Dioxide 28.0, Anion Gap 5, BUN 79 H, Creatinine 2.48 H, Estim Creat Clear Calc 19.63, Est GFR (MDRD) Af Amer 32 L, Est GFR (MDRD) Non-Af 27 L, BUN/Creatinine Ratio 31.9 H, Glucose 125 H, Calcium 8.8, Total Bilirubin 1.30 H, AST 17, ALT 23, Alkaline Phosphatase 61, Total Protein 6.4, Albumin 2.8 L, Globulin 3.6, Albumin/Globulin Ratio 0.8 L 11/17/22 05:33: POC Glucose 122 H Micro: Microbiology 11/16/22 19:10 Stool Stool Occult Blood (CLARY) - Final 11/16/22 16:45 Nasal Secretion SARS-CoV-2 Antigen (Rapid) - Final Radiography Diagnostic Testing: Radiology Impression Chest X-Ray 11/16/22 17:00 IMPRESSION: Normal x-ray examination of the chest. Electronically Signed: Lalit Lamar MD at 17:47 EDT Reading Location ID and State: [facility] / [place] Tel , Service support , Physical Exam Const alert, oriented x3 and no apparent distress General Appearance: cooperative HEENT normocephalic, head/scalp atraumatic and moist oral mucous membranes Eyes PERRL and EOMs intact bilaterally Neck no lymphadenopathy, supple and no JVD Lymph Lymphatic: no lymphadenopathy noted and no lymphedema noted Resp Resp Narrative: few crackles bilaterally, on room air. Cardio regular rate, regular rhythm, S1 normal heart sound, S2 normal heart sound and no murmurs GI normal to inspection, nondistended, normoactive bowel sounds GI Narrative: abdomen soft, nontender, no organomegaly. Extremity normal capillary refill, no clubbing, cyanosis or edema and no calf tenderness Skin General Skin Exam: no breakdown and turgor normal Neuro CN's II-XII intact bilaterally, no focal motor deficits and no sensory deficits noted Motor Exam: strength 5/5 throughout Psych thought process normal, cooperative and affect normal Appearance: appropriate Assessment & Plan Assessment/Plan (1) Anemia: (2) GI bleed: PLAN: Plan #Acute on chronic anemia due to probable upper GI bleed * s/p transfusion of 2 units of PRBCs * Hb today is 8.5. * on IV pantoprazole 40mg bid * s/p EGD today which showed Normal esophagus, a single bleeding an giodysplastic lesion in the stomach which was treated with a heater probe, Non-bleeding gastric ulcers with no stigmata of bleeding which was Biopsied and Non-bleeding duodenal ulcers with no stigmata of bleeding. * continue with PO pantoprazole 40mg bid x 4 weeks and sucralfate 1 gram POP qid for 8 weeks. * * #COPD: * doesnt appear to be in exacerbation. Breathing treatment with bronchodilators. 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 Baseline Cr is 1.5 * was likely exacerbated by GI bleed * continue gentle hydration with IVF and monitor. * #Hypertension; on amlodipine and carvedilol. Hold lisinopril due to GUZMAN #HFpEF: * not in exacerbation. On furosemide. * Will hold due to GUZMAN on CKD. Has known EF of 65% * had cardiac cath in March 2022 which showed multivessel CAD and aortic valve calcification. #Mild aortic stenosis: * 2D echo from March 2022 showed EF of 65% with mild concentric LV hypertrophy and mild aortic stenosis * #DVT prophylaxis: SCDs Code status: DNRCCA no intubation * Charges/Coding Visit Charges Inpatient E&M: 97671 Subs Hosp L2
--- NOTE | 2022-11-17 14:00 | CASEMGMT ---
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 Pt voices understanding and consents to?assessment?at this time.? Pt resting in bed in no distress at this time.? Pt is A/O at this time and answers all questions appropriately.?? Care providers, pharmacy, and demographics verified/updated at this time. PCP: Dr Adrianna Nichols Specialists: [facility]/Cardiology-Bart Galo NP Preferred Pharmacy: [facility] Insurance: Melissa MAR Prescription Benefit:?Yes Living Will/HPOA:?Pt states he thinks he has completed LW and HCPOA, and he thinks his step-dtr, Katie, is his POA, but he is not sure. He states these documents should be @ [facility] or at his PCP's office, but he is not sure. He states he does not think he nor Katie have a copy of them. Pt made aware, if he is unable to locate them or if he wishes to complete new ones, SW can assist w/this. He states does not want to complete these at this time. He was made aware this can also be completed as an OP. He voices understanding. LNOK: Katie, was listed as only contact for him and she was listed as his dtr. Upon further discussion, pt clarifies that she is his step-dtr. Gigmax updated. He states he has 6 biological children. 1 was with his 1st and then he had 5 children with his 2nd . He states he does not stay in contact w/his 6 children and that he is close w/Katie (step-dtr) and she helps him with everything. Living Arrangements: Lives alone in mobile home w/8 steps to enter. Pt denies difficulty w/the steps. Pt states he is independent w/ADL's and IADL's and manages his own medications. He typically gets his own groceries, but d/t SOB the past 2 weeks, Katie has been getting them for him. Transportation:?Pt states he was driving up until the past 2 weeks, but d/t SOB the past 2 weeks he has not been driving. Katie will take him home @ discharge. DME: States has the following DME:?shower chair, BP cuff, nebulizer, cane, functioning glucometer w/supplies, O2 @ 2l/m continuously through Katie. Pt states he has a concentrator and POC and states Katie can bring in the POC to go home on @ d/c. Pt also has a cane and walker available, if neede, but does not use them. Pt states no need for further DME at this time.? HHC/SNF: Hx of SNF in [place], but does not remember name of SNF. States he is active w/[facility] and would like to resume them upon d/c. He declines wanting list of other HHC options, stating he is pleased w/them. NIMCO, Tamara, made aware. Pt wishes to return home and states has no concerns with going home at time of discharge.? CM?to follow for any increase in home oxygen needs and any further discharge planning/needs.? Pt voices no further concerns/needs at this time.? Advised pt to ask for?CM?if any further questions/concerns/needs arise.? Voices understanding. PLAN:??Home w/[facility]. Follow for any increase in Home O2 needs. Amanda BSN?RN?CM
[2022-11-17] MEDS: Insulin Lispro 100 UNIT/ML INSULN.PEN SC ×2 (16:17→21:27)
[2022-11-17 16:31] LABS: Bedside Glucose 177 mg/dL (74-106)
[2022-11-17] MEDS: Albuterol 2.5 MG/3 ML VIAL.NEB. INHALATION (17:26)
--- NOTE | 2022-11-17 19:46 | CASEMGMT ---
ALMA RINALDI NOTE: Pt meets criteria for Palliative referral per [facility] screening tool. Order received from Dr Alcantara. Palliative referral sent to [facility] via E-mail. Amanda ALEMAN RN CM
[2022-11-17 21:41] LABS: Bedside Glucose 200 mg/dL (74-106)
[2022-11-18] VITALS (7 sets, daily range): BP systolic 127–151; BP diastolic 46–59; PULSE 82–98; RESP 18–20; TEMP 36.6–36.9; O2SAT 92–99
[2022-11-18] MEDS: 0.9% Normal Saline (1000mL) 1,000 ML 100 ML IV (03:25)
[2022-11-18 06:06] LABS: Bedside Glucose 105 mg/dL (74-106)
[2022-11-18] MEDS: Budesonide Respules 0.5 MG/2 ML AMPUL.NEB. INHALATION (07:11)
--- NOTE | 2022-11-18 08:23 | PN.HOSP_ITS ---
Reason for Visit Reason for Visit: Diagnoses Anemia, unspecified (11/16/22) Gastrointestinal hemorrhage, unspecified (11/16/22) Objective Data Objective Data Vital Signs: Vital Signs Temp Pulse Resp BP Pulse Ox O2 Del Method O2 Flow Rate 98 F 82 20 H 127/46 H 96 Nasal Cannula 2 11/18/22 04:14 11/18/22 07:35 11/18/22 07:35 11/18/22 04:14 11/18/22 08:09 11/18/22 08:09 11/18/22 08:09 Oxygen Flow Rate (L/min) 2 Oxygen Delivery Method Nasal Cannula Weight: 84.8 kg Body Mass Index (BMI) 31.1 Intake & Output: Intake and Output for Last 24 Hours 11/16/22 11/17/22 11/18/22 23:59 23:59 23:59 Intake Total 0 / 0 2515.25 / 2515.25 991.67 / 991.67 Output Total 2100 / 2100 Balance 0 / -200 415.25 / 415.25 991.67 / 991.67 Lab / Micro Data 11/17/22 05:30 11/17/22 05:30 Labs: Laboratory Results - last 24 hr 11/17/22 16:13: POC Glucose 177 H 11/17/22 21:16: POC Glucose 200 H 11/18/22 05:46: POC Glucose 105 Micro: Microbiology 11/16/22 19:10 Stool Stool Occult Blood (CLARY) - Final 11/16/22 16:45 Nasal Secretion SARS-CoV-2 Antigen (Rapid) - Final Assessment & Plan Assessment/Plan (1) Anemia: (2) GI bleed: PLAN: Plan #Acute on chronic anemia due to probable upper GI bleed * s/p transfusion of 2 units of PRBCs * Hb today is 8.5. * on IV pantoprazole 40mg bid * s/p EGD today which showed Normal esophagus, a single bleeding angiodysplastic lesion in the stomach which was treated with a heater probe, Non-bleeding gastric ulcers with no stigmata of bleeding which was Biopsied and Non-bleeding duodenal ulcers with no stigmata of bleeding. * continue with PO pantoprazole 40mg bid x 4 weeks and sucralfate 1 gram POP qid for 8 weeks. * * #COPD: * doesnt appear to be in exacerbation. Breathing treatment with bronchodilators. 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 Baseline Cr is 1.5 * was likely exacerbated by GI bleed * continue gentle hydration with IVF and monitor. * #Hypertension; on amlodipine and carvedilol. Hold lisinopril due to GUZMAN #HFpEF: * not in exacerbation. On furosemide. * Will hold due to GUZMAN on CKD. Has known EF of 65% * had cardiac cath in March 2022 which showed multivessel CAD and aortic valve calcification. #Mild aortic stenosis: * 2D echo from March 2022 showed EF of 65% with mild concentric LV hypertrophy and mild aortic stenosis * #DVT prophylaxis: SCDs Code status: DNRCCA no intubation *
[2022-11-18] MEDS: Pantoprazole Sodium 40 MG in 0.9% Normal Saline (100mL MB+) 100 ML 330 MG IV (10:56)
[2022-11-18] MEDS: Insulin Lispro 100 UNIT/ML INSULN.PEN SC (11:12)
[2022-11-18 11:33] LABS: Hematocrit 27.7 % (40-54); Hemoglobin 8.4 g/dL (13.0-16.5); Mean Corp Hgb Conc 30.3 g/dL (32-36); Mean Corpuscular Volume 98.9 fL (80-94); Mean Platelet Vol. 10.7 fl (6.2-12.0); Platelet Count 112 K/mm3 (150-450); RBC Distribution Width CV 14.4 % (11.6-14.6); RBC Distribution Width SD 52.4 fl (35.1-43.9)
[2022-11-18 11:47] LABS: Bedside Glucose 258 mg/dL (74-106)
[2022-11-18 12:00] LABS: Anion Gap 4 (5-15); BUN 61 mg/dL (7-18); BUN/Creat Ratio 25.6 RATIO (10-20); Calcium,Total 8.4 mg/dL (8.5-10.1); Chloride 113 mmol/L (98-107); Creatinine, Serum 2.38 mg/dL (0.70-1.30); EST Glomerular Filtration Rate 28 mL/min (>60); Est Glom Filt Rate - Afr Amer 34 mL/min (>60); Estimated Creatinine Clearance 20.46 ml/min; Glucose 254 mg/dL (74-106); Magnesium 2.1 mg/dL (1.6-2.6); Phosphorus 2.6 mg/dL (2.5-4.9); Sodium Level 142 mmol/L (136-145)
--- NOTE | 2022-11-18 12:34 | DS.PCM_ITS ---
Providers Date of Admission: 11/16/22 Date of Discharge: 11/18/22 Primary Care Physician: Dr. Adrianna Nichols, Consultations 11/17/22 02:11 Consult: Gastroenterology Routine Consulting Provider: [facility] Reason for Consult: GI bleed EMERGENT Consult: No MD Notified: Yes Date Notified: 11/17/22 Time Notified: 06:57 Method of Notification: Text Reason For Visit: sob Diagnosis Discharge Diagnosis (1) Anemia: Status: Acute Code(s): D64.9 - Anemia, unspecified (2) GI bleed: Status: Acute Code(s): K92.2 - Gastrointestinal hemorrhage, unspecified Medications at Discharge Home Medications atorvastatin 80 mg tablet 80 mg PO DAILY CHOLESTEROL 05/02/21 cholecalciferol (vitamin D3) 25 mcg (1,000 unit) capsule 25 mcg PO DAILY vitamin 05/02/21 ipratropium 0.5 mg-albuterol 3 mg (2.5 mg base)/3 mL nebulization soln 3 ml inhalation 4X/DAY PRN sob 05/02/21 liothyronine 25 mcg tablet 25 mcg PO DAILY THYROID 05/02/21 omega-3 fatty acids-vitamin E 1,000 mg capsule 2 cap PO BID SUPPLEMENT 05/02/21 tiotropium bromide 18 mcg capsule with inhalation device (Spiriva with HandiHaler) 18 mcg inhalation DAILY SOB 05/02/21 vitamins A,C,J-rsry-ljvmou 4,296 mcg-226 mg-90 mg capsule (PreserVision AREDS) 1 cap PO BID vitamin 12/13/21 lisinopril 20 mg tablet (Zestril) 20 mg PO DAILY blood pressure 03/12/22 glimepiride 2 mg tablet 2 mg PO DAILY DM 05/24/22 furosemide 40 mg tablet (Lasix) 40 mg PO DAILY diuretic #90 tabs 07/06/22 empagliflozin 25 mg tablet (Jardiance) 25 mg PO DAILY dm 11/16/22 pantoprazole 40 mg tablet,delayed release (Protonix) 40 mg PO BID 12 weeks #168 tabs 11/18/22 sucralfate 1 gram tablet 1 g PO Q6H 8 weeks #224 tabs 11/18/22 Hospital Course Summary of Care Provided Minutes Spent on Discharge: 35 Hospital Course: Patient is an 82-year-old gentleman admitted with severe anemia 1. Acute on chronic anemia secondary to chronic blood loss anemia from GI bleed ? 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 GI recommended for patient to be treated with PO pantoprazole 40mg bid x 4 weeks and sucralfate 1 gram POP qid for 8 weeks. 2. Chronic congestive heart failure with preserved ejection fraction ? EF 65% not in exacerbation 3. Acute kidney injury ? Superimposed on chronic kidney disease stage IIIb 4. Diabetes mellitus type II -patient's oral hypoglycemics held. Placed on long acting insulin, Accu-Cheks a.c. and at bedtime and covered with sliding scale insulin. Oral agents resumed on discharge 5. Hypertension - Blood pressure controlled, home medications continued with dose adjustment as needed 6. Class I obesity with BMI of 31 ? Weight loss advised 7. COPD ? Currently not in exacerbation 8. DVT prophylaxis ? Bilateral SCD Physical Exam Narrative GENERAL: cooperative HEENT: Atraumatic; normocephalic EYES; Anicteric, Normal Conjunctiva NECK; supple, normal thyroid, RESPIRATORY: Diminished to auscultation CARDIOVASCULAR: Regular S1 S2, GI: soft, normoactive bowel sounds, : No Renal angle tenderness; EXTREMITIES: No edema, no clubbing, MUSCULOSKELETAL: no muscle wasting NEURO: Awake; no lateralizing signs. SKIN: No Rash PSYCH; Flat affect Weight / BMI Weight Weight: 84.8 kg Body Mass Index (BMI) 31.1 ABG / Lab / Microbiology Data 11/18/22 11:10 11/18/22 11:10 Laboratory: Laboratory Results - last 24 hr 11/17/22 16:13: POC Glucose 177 H 11/17/22 21:16: POC Glucose 200 H 11/18/22 05:46: POC Glucose 105 11/18/22 11:10: WBC 6.0, RBC 2.80 L, Hgb 8.4 L, Hct 27.7 L, MCV 98.9 H, MCH 30 .0, MCHC 30.3 L, RDW Std Deviation 52.4 H, RDW Coeff of John 14.4, Plt Count 112 L, MPV 10.7, Sodium 142, Potassium 5.0, Chloride 113 H, Carbon Dioxide 25.0, Anion Gap 4 L, BUN 61 H, Creatinine 2.38 H, Estim Creat Clear Calc 20.46, Est GFR (MDRD) Af Amer 34 L, Est GFR (MDRD) Non-Af 28 L, BUN/Creatinine Ratio 25.6 H , Glucose 254 H, Calcium 8.4 L, Phosphorus 2.6, Magnesium 2.1 11/18/22 11:11: POC Glucose 258 H Microbiology: Microbiology 11/16/22 19:10 Stool Stool Occult Blood (CLARY) - Final 11/16/22 16:45 Nasal Secretion SARS-CoV-2 Antigen (Rapid) - Final D/C Instructions Discharge Activity: Return to Normal Activity Call your doctor if you observe: Fever of 101 or Higher, Shortness of breath, Fainting spells and Chest pain Additional Instructions: No aspirin No ibuprofen No naproxen Meaningful Use Info Meaningful Use Diagnoses (Choose all that apply): None applicable Discharge Plan Admission Admit Date/Time: 11/16/22 18:45 Attending Provider: Irwin Godwin Primary Care Provider: Adrianna Nichols Consulting Providers: Sarai Alcantara Discharge Orders/Prescriptions Prescriptions: New sucralfate 1 gram tablet 1 g PO Q6H 56 Days Qty: 224 0RF pantoprazole [Protonix] 40 mg tablet,delayed release (DR/EC) 40 mg PO BID 84 Days Qty: 168 0RF Continued furosemide [Lasix] 40 mg tablet 40 mg PO DAILY Qty: 90 3RF atorvastatin 80 mg tablet 80 mg PO DAILY Patient Comments: TAKE 1 TABLET BY MOUTH ONCE DAILY ipratropium-albuterol 0.5 mg-3 mg(2.5 mg base)/3 mL solution for nebulization 3 ml inhalation 4X/DAY PRN (Reason: sob) Patient Comments: inhale contents of 1 vial ( 3 milliliters ) in nebulizer by mouth... (REFER TO PRESCRIPTION NOTES). liothyronine 25 mcg tablet 25 mcg PO DAILY Patient Comments: TAKE 1 TABLET BY MOUTH ONCE DAILY FOR 90 DAYS tiotropium bromide [Spiriva with HandiHaler] 18 mcg capsule, w/inhalation device 18 mcg INHALATION DAILY Patient Comments: INHALE THE CONTENTS OF 1 CAPSULE TWICE EACH TIME VIA HANDIHALER ONCE DAILY cholecalciferol (vitamin D3) 25 mcg (1,000 unit) Capsule 25 mcg PO DAILY omega-3 fatty acids-vitamin E 1,000 mg Capsule 2 cap PO BID PreserVision AREDS [id number] Capsule 1 cap PO BID lisinopril [Zestril] 20 mg tablet 20 mg PO DAILY Hold Instructions: Resume on 03/18/22. glimepiride 2 mg tablet 2 mg PO DAILY Patient Comments: take 1 tablet by mouth once daily WITH FIRST MEAL OF THE DAY Jardiance 25 mg tablet 25 mg PO DAILY Discontinued aspirin 81 mg tablet,chewable 81 mg PO DAILY@0800 Referrals / Follow Up: Adrianna Nichols DO [Primary Care Provider] - Within 1 Week Disposition Disposition (needs filled in before D/C Order can be placed): Home Health Service Charges/Coding Visit Charges Inpatient E&M: 80226 Disch Hosp >30min
== END 2022-11-18 16:27 | disposition home health service (06) | DRG 811 ==
LOC: ED 18:57 → PCU 19:31
PROVIDERS: Family Medicine; Internal Medicine Gastroenterology; Admitting Provider Student in an Organized Health Care Education/Training Program; Emergency Provider Emergency Medicine; PCP Family Medicine; Visit Provider Internal Medicine
PROC: 0DJ08ZZ Inspection of Upper Intestinal Tract, Via Natural or Artificial Opening Endoscopic (ICD-10-PCS; CPT 43235; principal; 2022-11-17 11:25)
DX: D50.0 Iron deficiency anemia secondary to blood loss (chronic) (principal); K25.4 Chronic or unspecified gastric ulcer with hemorrhage; K31.811 Angiodysplasia of stomach and duodenum with bleeding; I13.0 Hypertensive heart and chronic kidney disease with heart failure and stage 1 through stage 4 chronic kidney disease, or unspecified chronic kidney disease; N17.9 Acute kidney failure, unspecified; I50.32 Chronic diastolic (congestive) heart failure; K22.10 Ulcer of esophagus without bleeding; E11.22 Type 2 diabetes mellitus with diabetic chronic kidney disease; J44.9 Chronic obstructive pulmonary disease, unspecified; I70.0 Atherosclerosis of aorta; N18.32 Chronic kidney disease, stage 3b; E11.65 Type 2 diabetes mellitus with hyperglycemia; I35.0 Nonrheumatic aortic (valve) stenosis; E03.9 Hypothyroidism, unspecified; I25.10 Atherosclerotic heart disease of native coronary artery without angina pectoris; E78.5 Hyperlipidemia, unspecified; I25.2 Old myocardial infarction; Z68.31 Body mass index [BMI] 31.0-31.9, adult; Z79.84 Long term (current) use of oral hypoglycemic drugs; Z79.01 Long term (current) use of anticoagulants; Z99.81 Dependence on supplemental oxygen; Z87.891 Personal history of nicotine dependence; Z82.3 Family history of stroke; Z79.82 Long term (current) use of aspirin; Z66 Do not resuscitate; E66.9 Obesity, unspecified; K26.9 Duodenal ulcer, unspecified as acute or chronic, without hemorrhage or perforation
CPT/HCPCS: 36415; 71045; 80048; 80053; 82274; 82962; 83735; 83880; 84100; 84484; 85025; 85027; 86850; 86900; 86901; 86920; 86922; 87811; 88305; 88342; 93005; 94640; 97802; 99285; J7030; J7120; P9016; A4216; J1940; J2405

== ENCOUNTER 2022-12-11 12:13 | Outpatient (RCR) | payer MEDICARE, SELFPAY ==
[2022-12-11 12:40] LABS: Hematocrit 28.7 % (40-54); Mean Corp Hgb Conc 31.4 g/dL (32-36); Mean Corpuscular Volume 95.7 fL (80-94); Mean Platelet Vol. 12.2 fl (6.2-12.0); Platelet Count 104 K/mm3 (150-450); RBC Distribution Width CV 13.2 % (11.6-14.6); RBC Distribution Width SD 46.2 fl (35.1-43.9); White Blood Count 4.4 K/mm3 (4.4-11.0)
[2022-12-11 12:59] LABS: BUN 78 mg/dL (7-18); BUN/Creat Ratio 30.2 RATIO (10-20); Calcium,Total 8.9 mg/dL (8.5-10.1); Chloride 107 mmol/L (98-107); Creatinine, Serum 2.58 mg/dL (0.70-1.30); EST Glomerular Filtration Rate 25 mL/min (>60); Est Glom Filt Rate - Afr Amer 31 mL/min (>60); Glucose 160 mg/dL (74-106); Phosphorus 4.4 mg/dL (2.5-4.9); Potassium 4.2 mmol/L (3.5-5.1); Sodium Level 141 mmol/L (136-145)
== END 2022-12-11 18:00 | disposition home or self-care (01) ==
LOC: HHLAB 12:13
PROVIDERS: PCP Family Medicine; Referring Provider Family Medicine; Visit Provider Family Medicine
DX: K31.811 Angiodysplasia of stomach and duodenum with bleeding (principal); D62 Acute posthemorrhagic anemia; K25.9 Gastric ulcer, unspecified as acute or chronic, without hemorrhage or perforation
CPT/HCPCS: 80069; 85027

== ENCOUNTER 2023-02-08 17:44 | Emergency (ER) | payer MEDICARE, SELFPAY ==
[2023-02-08] VITALS (8 sets, daily range): BP systolic 121–148; BP diastolic 46–98; PULSE 93–99; RESP 15–20; TEMP 37; O2SAT 95–100; BMI 32.7
--- NOTE | 2023-02-08 18:10 | EKG12_ITS ---
Test Reason : sob Blood Pressure : / mmHG Vent. Rate : 091 BPM Atrial Rate : 091 BPM P-R Int : 226 ms QRS Dur : 086 ms QT Int : 340 ms P-R-T Axes : 039 -10 043 degrees QTc Int : 418 ms Sinus rhythm with 1st degree A-V block Nonspecific ST and T wave abnormality Abnormal ECG Confirmed by JOSHUA CARRILLO, JACOB ([id number]), editor dictionary GARRY DENNY ([id number]) on 02/09/2023 9:36:15 AM Referred By: Confirmed By:JACOB LEWIS MD
[2023-02-08] MEDS: Ipratropium/Albuterol Sulfate 3 ML AMPUL.NEB INHALATION (18:21)
[2023-02-08] MEDS: Albuterol 2.5 MG/3 ML VIAL.NEB. INHALATION ×3 (18:22)
[2023-02-08 18:28] LABS: Absolute Neutrophil Count 3.1 X10^3/uL (2.0-7.7); Basophil# 0.02 X10^3/uL; Basophil% 0.4 % (0-1); Eosinophil# 0.27 X10^3/uL; Eosinophils% 5.7 % (0-5); Hematocrit 24.1 % (40-54); Hemoglobin 7.3 g/dL (13.0-16.5); Lymphocyte % 21.1 % (19-41); Mean Corp Hgb Conc 30.3 g/dL (32-36); Mean Corpuscular Hgb 26.2 pg (27.0-32.0); Mean Corpuscular Volume 86.4 fL (80-94); Mean Platelet Vol. 10.7 fl (6.2-12.0); Monocyte# 0.34 X10^3/uL; Monocyte% 7.2 % (0-10); NRBC Flagged by Analyzer 0 % (0-5); Neutrophil # 3.09 X10^3/uL (2.7-7.7); Neutrophil % 65.4 % (47-70); Platelet Count 120 K/mm3 (150-450); RBC Distribution Width CV 14.9 % (11.6-14.6); RBC Distribution Width SD 46.3 fl (35.1-43.9); Red Blood Count 2.79 M/mm3 (4.6-6.2); White Blood Count 4.7 K/mm3 (4.4-11.0)
[2023-02-08 18:51] LABS: Anion Gap 4 (5-15); BUN 97 mg/dL (7-18); BUN/Creat Ratio 33.7 RATIO (10-20); Calcium,Total 9.3 mg/dL (8.5-10.1); Chloride 108 mmol/L (98-107); Creatinine, Serum 2.88 mg/dL (0.70-1.30); EST Glomerular Filtration Rate 22 mL/min (>60); Est Glom Filt Rate - Afr Amer 27 mL/min (>60); Estimated Creatinine Clearance 16.91 ml/min; Glucose 120 mg/dL (74-106); Potassium 4.8 mmol/L (3.5-5.1); Sodium Level 143 mmol/L (136-145)
--- NOTE | 2023-02-08 18:55 | RAD_ITS ---
INDICATION: Cough, shortness of breath, Hx COPD EXAMINATION/TECHNIQUE: X-RAY - XR Chest 2 Views COMPARISON: 11/16/2022 FINDINGS: LINES/DEVICES: None. LUNGS: Hyperinflation. No consolidation, vascular congestion or pleural effusion. MEDIASTINUM AND CARDIOVASCULAR STRUCTURES: Cardiac silhouette stable within normal limits. BONES AND SOFT TISSUES: No acute changes. RAD/Chest PA and Lateral IMPRESSION: No radiographic evidence of acute cardiopulmonary disease. COPD. Electronically Signed: Geremias Sheth MD at 19:32 EST ,
[2023-02-08] MEDS: predniSONE 20 MG Tablet 60 MG PO (19:08)
--- NOTE | 2023-02-08 20:22 | EDS_ITS ---
HPI History of Present Illness Chief Complaint: Shortness of Breath Detail of Chief Complaint: This of breath that started a couple of days ago. Informant: patient Onset/Context/Timing Onset: Days Context: Gradual Onset Timing: Continuous and Waxes and wanes Quality: Dyspnea, dyspnea on exertion and cough Location: Respiratory Current Severity: Mild Maximum Severity: Moderate Worsened by: Activity Relieved by: Nothing Associated Symptoms Associated Symptoms: None Narrative Narrative: Patient is an 82-year-old male with history of coronary disease, chronic respiratory failure with hypoxemia, essential hypertension, diastolic congestive heart failure, and COPD who presents with increasing shortness of breath over the past several days. He is on oxygen at home at 2 L. He denies fever, chills night sweats. He denies ear pain or discharge from his ears. He denies rhinorrhea or congestion. Denies sore throat. He denies chest pain of any type. He does report dyspnea and dyspnea on exertion. He denies orthopnea or PND. He denies swelling of his lower extremities. Patient has been on prednisone within the past 3 months. Patient has a nonproductive cough. He denies history of PE or DVT. He denies polyuria, polydipsia or nocturia. He denies dysuria, frequency, urgency or hematuria. Prior similar symptoms: Yes (COPD) Recent Illness/Hospitalization: No PFSH PFSH Medical History Aortic valve stenosis, acquired Atherosclerotic heart disease of [place] coronary artery without angina pectoris CAD (coronary artery disease) Chronic respiratory failure with hypoxia COPD (chronic obstructive pulmonary disease) Diabetes Diabetes mellitus, type 2 Former smoker Former tobacco use History of CAD (coronary artery disease) History of left heart catheterization (LHC) (~03/15/22) HLD (hyperlipidemia) HTN (hypertension) Hypertension Hypothyroidism Kidney disease Mild left ventricular hypertrophy Myocardial infarct Nonrheumatic aortic (valve) stenosis Obesity On home oxygen therapy Polyarthralgia TIA (transient ischemic attack) Home Medications atorvastatin 80 mg tablet 80 mg PO DAILY CHOLESTEROL 05/02/21 [History Last Taken 05/23/22] cholecalciferol (vitamin D3) 25 mcg (1,000 unit) capsule 25 mcg PO DAILY vitamin 05/02/21 [History Last Taken 05/24/22] ipratropium 0.5 mg-albuterol 3 mg (2.5 mg base)/3 mL nebulization soln 3 ml inhalation 4X/DAY PRN sob 05/02/21 [History Last Taken 05/23/22] liothyronine 25 mcg tablet 25 mcg PO DAILY THYROID 05/02/21 [History Last Taken 05/24/22] omega-3 fatty acids-vitamin E 1,000 mg capsule 2 cap PO BID SUPPLEMENT 05/02/21 [History Last Taken 05/24/22] tiotropium bromide 18 mcg capsule with inhalation device (Spiriva with HandiHaler) 18 mcg inhalation DAILY SOB 05/02/21 [History Last Taken 05/24/22] vitamins A,C,Z-[id number] 4,296 mcg-226 mg-90 mg capsule (PreserVision AREDS) 1 cap PO BID vitamin 12/13/21 [History Last Taken 05/24/22] lisinopril 20 mg tablet (Zestril) 20 mg PO DAILY blood pressure 03/12/22 [History Last Taken 05/24/22] glimepiride 2 mg tablet 2 mg PO DAILY DM 05/24/22 [History Last Taken 05/24/22] furosemide 40 mg tablet (Lasix) 40 mg PO DAILY diuretic #90 tabs 07/06/22 [Rx Last Taken Unknown] empagliflozin 25 mg tablet (Jardiance) 25 mg PO DAILY dm 11/16/22 [History Last Taken Unknown] pantoprazole 40 mg tablet,delayed release (Protonix) 40 mg PO BID 12 weeks #168 tabs 11/18/22 [Rx Last Taken Unknown] sucralfate 1 gram tablet 1 g PO Q6H 8 weeks #224 tabs 11/18/22 [Rx Last Taken Unknown] prednisone 20 mg tablet 60 mg (3 x 20 mg) PO DAILY #12 TABLETS 02/08/23 [Rx Last Taken Unknown] Allergy/AdvReac Type Severity Reaction Status Date / Time codeine AdvReac Upset Verified 11/16/22 16:26 Stomach Family History Mother CVA (cerebral vascular accident) Heart disease Myocardial infarction Hx of CABG Hypertension Father CVA (cerebral vascular accident) Heart disease Surgical History S/P cataract extraction Social History household members: none housing: house Smoking Status: Former smoker how long ago did patient quit smoking: Quit 2011, prior 1 ppd since teen. alcohol intake: former year quit: 2010 substance use type: does not use ROS ROS ED Constitutional Constitutional ED: Denies chills, fever(s), subjective, sweats or weight loss Eyes Eyes: Denies blurry vision, change in vision or diplopia ENT ENT ED: Denies ear pain, rhinorrhea or sore throat Cardiovascular Cardiovascular: Denies chest pain, orthopnea, palpitations, paroxysmal nocturnal dyspnea or racing heartbeat Respiratory/Chest Respiratory/Chest: Reports cough, dyspnea, dyspnea on exertion and other Details: Positive wheezing ; Denies orthopnea, paroxysmal nocturnal dyspnea or sputum Gastrointestinal Gastrointestinal: Denies abdominal pain, nausea or vomiting Musculoskeletal Musculoskeletal: Denies arthralgias, back pain, myalgias or neck pain Integumentary Denies abscess, Abrasions or rash Neurologic Neurologic: Denies headache(s), paresthesias or weakness Psychiatric Psychiatric: Denies anxiety, depression, suicidal ideation or suicidal thoughts Endocrine Endocrinology: Denies cold intolerance or heat intolerance Hematologic/Lymphatic Hematologic/Lymphatic: Reports systems reviewed and no addt'l complaints, except as documented Allergic/Immunologic Allergic/Immunologic ED: Denies mouth swelling or tongue swelling EXAM Physical Exam Narrative Exam Narrative: Appears in mild respiratory distress. He is tachypneic. Wheezing is noted. Patient is toxic. He is not febrile. Const Vital Signs: 02/08/23 17:50 02/08/23 17:53 02/08/23 17:53 Temperature 98.6 F Temperature Source Oral Pulse Rate 97 98 Respiratory Rate 20 H 18 Respiratory Effort Short of Breath Respiratory Pattern Tachypnea Blood Pressure 148/60 H 148/60 H Blood Pressure Mean 89 89 Pulse Ox 97 97 Oxygen Delivery Method Nasal Cannula Nasal Cannula Nasal Cannula Oxygen Flow Rate (L/min) 2 2 2 02/08/23 17:56 02/08/23 18:23 02/08/23 18:58 Temperature 98.6 F Temperature Source Oral Pulse Rate 96 93 Respiratory Rate 15 17 Respiratory Effort Respiratory Pattern Blood Pressure 148/60 H Blood Pressure Mean 89 Pulse Ox 97 96 Oxygen Delivery Method Nasal Cannula Nasal Cannula Oxygen Flow Rate (L/min) 2 2 02/08/23 20:29 Temperature Temperature Source Pulse Rate 99 Respiratory Rate 16 Respiratory Effort Respiratory Pattern Blood Pressure 127/48 H Blood Pressure Mean 74 Pulse Ox 100 Oxygen Delivery Method Nasal Cannula Oxygen Flow Rate (L/min) 2 Positive well nourished, well developed and obese General Appearance ED: well developed; Negative for cyanotic, diaphoretic, NAD or pallor Nutritional Appearance: obese HEENT Reports moist mucous membranes HEENT Narrative: Is atraumatic and normocephalic. Ears are normal. Nares are patent. Posterior pharynx is normal. Uvula is Eyes PERRL and EOMs intact bilaterally General Eye ED: Negative for pale conjunctiva or scleral icterus Neck no lymphadenopathy and supple Neck Narrative: Gait is midline. There is no history of stridor. Chest Wall inspection of chest normal and palpation of chest normal Resp No normal respiratory effort and No clear to auscultation bilaterally Resp Narrative: Minimal use of accessory muscles. Effort and Inspection: Negative for retractions or pain with movement Auscultation: wheezes expiratory wheezes, scattered wheezes and throughout Cardio regular rate, regular rhythm, S1 normal heart sound, S2 normal heart sound and no murmurs GI normal to inspection, nondistended, normoactive bowel sounds, non-tender, non- distended and no masses; Negative for hepatosplenomegaly Auscultation: normoactive bowel sounds Palpation: soft Back/Spine no CVA tenderness Thoracic Spine / Upper Back: Negative for thoracic spinal tenderness Lumbar Spine / Lower Back: Negative for lumbar spinal tenderness Extremity normal to inspection General Extremety ED: Negative for edema General Extremity: Negative for edema Neuro oriented x3, CN's II-XII intact bilaterally and no sensory deficits noted Sensorium / Orientation: alert Motor Exam: strength 5/5 throughout Psych mental status grossly normal Skin no rashes or lesions noted, no wounds and No skin turgor normal General Skin Exam: Negative for jaundice or pallor MDM MDM MDM Narrative Medical decision making narrative: Diagnosis would include upper respiratory infection with exacerbation of COPD, exacerbated COPD, pneumonia since patient has recently been on prednisone he was treated with prednisone in the department as well as DuoNeb and albuterol. Chest x-ray was obtained to assess for pneumonia. CBC to assess white count. Since patient appears pale concern he may need transfusion; furthermore, patient states last time he had shortness of breath he was anemic and required transfusion. He also has history of chronic kidney disease stage III/IV. EKG was obtained to rule out cardiac ischemia. Lab Data Attestation: I reviewed the patient's lab results. Lab results narrative: White count is normal with normal differential. H&H is 7.3 and 24.1. Patient had approximately 2 g drop in his hemoglobin since the beginning of December. Basic metabolic panel is remarkable for a BUN/creatinine of 97 and 2.8 which is slightly higher than baseline for patient. Glucose is slightly elevated at 120 with normal CO2 anion gap. Labs: Laboratory Results - last 24 hr 02/08/23 18:20 WBC 4.7 RBC 2.79 L Hgb 7.3 L Hct 24.1 L MCV 86.4 MCH 26.2 L MCHC 30.3 L RDW Std Deviation 46.3 H RDW Coeff of John 14.9 H Plt Count 120 L MPV 10.7 Immature Gran % (Auto) 0.200 Neut % (Auto) 65.4 Lymph % (Auto) 21.1 [place] % (Auto) 7.2 Eos % (Auto) 5.7 H Baso % (Auto) 0.4 Absolute Neuts (auto) 3.1 Absolute Lymphs (auto) 1.00 Nucleated RBC % 0 Sodium 143 Potassium 4.8 Chloride 108 H Carbon Dioxide 31.0 Anion Gap 4 L BUN 97 H Creatinine 2.88 H Estim Creat Clear Calc 16.91 Est GFR (MDRD) Af Amer 27 L Est GFR (MDRD) Non-Af 22 L BUN/Creatinine Ratio 33.7 H Glucose 120 H Calcium 9.3 Radiography Chest X-Ray - ED: 2 View and Read by ED Physician (Reviewed interpreted by me as negative for any acute process. Evidence of infiltrate or effusion. Lung parenchyma reveals chronic changes. Cardiac silhouette and size normal. Perihi lar regions normal. [place] structures are unremarkable. This is no pallor reviewed interpreted by me at 1922) Diagnostic Testing: Clinical Impression(s) from Imaging Studies Chest X-Ray 02/08/23 18:55 IMPRESSION: No radiographic evidence of acute cardiopulmonary disease. COPD. Electronically Signed: Geremias Sheth MD at 19:32 EST , Treatment and Re-Evaluation :: Was reassessed at 2150. Patient breathing is normalized. He states he feels markedly better. On auscultation no wheezing is noted. Plan is discharged with burst of prednisone. Discharge Plan Triage Chief Complaint: Shortness of Breath ED Provider: Dusty Yan Dx/Rx/DC Orders Clinical Impression: Acute exacerbation of chronic obstructive pulmonary disease (COPD), Atherosclerotic heart disease of [place] coronary artery without angina pectoris, Essential hypertension, Nonrheumatic aortic (valve) stenosis, Acute bronchos pasm, Chronic hypoxic respiratory failure Instructions: ED COPD Flare Prescriptions: New prednisone 20 mg tablet 60 mg PO DAILY Qty: 12 0RF No Action furosemide [Lasix] 40 mg tablet 40 mg PO DAILY Qty: 90 3RF atorvastatin 80 mg tablet 80 mg PO DAILY Patient Comments: TAKE 1 TABLET BY MOUTH ONCE DAILY ipratropium-albuterol 0.5 mg-3 mg(2.5 mg base)/3 mL solution for nebulization 3 ml inhalation 4X/DAY PRN (Reason: sob) Patient Comments: inhale contents of 1 vial ( 3 milliliters ) in nebulizer by mouth... (REFER TO PRESCRIPTION NOTES). liothyronine 25 mcg tablet 25 mcg PO DAILY Patient Comments: TAKE 1 TABLET BY MOUTH ONCE DAILY FOR 90 DAYS tiotropium bromide [Spiriva with HandiHaler] 18 mcg capsule, w/inhalation device 18 mcg INHALATION DAILY Patient Comments: INHALE THE CONTENTS OF 1 CAPSULE TWICE EACH TIME VIA HANDIHALER ONCE DAILY cholecalciferol (vitamin D3) 25 mcg (1,000 unit) Capsule 25 mcg PO DAILY omega-3 fatty acids-vitamin E 1,000 mg Capsule 2 cap PO BID PreserVision AREDS 14320-226-200 [id number] Capsule 1 cap PO BID lisinopril [Zestril] 20 mg tablet 20 mg PO DAILY Hold Instructions: Resume on 03/18/22. glimepiride 2 mg tablet 2 mg PO DAILY Patient Comments: take 1 tablet by mouth once daily WITH FIRST MEAL OF THE DAY Jardiance 25 mg tablet 25 mg PO DAILY sucralfate 1 gram tablet 1 g PO Q6H 56 Days Qty: 224 0RF pantoprazole [Protonix] 40 mg tablet,delayed release (DR/EC) 40 mg PO BID 84 Days Qty: 168 0RF Primary Care Provider: Adrianna Nichols Referrals: Adrianna Nichols DO [Primary Care Provider] - 3-5 Days Disposition Disposition: Home, Self Care
== END 2023-02-08 22:32 | disposition home or self-care (01) ==
PROVIDERS: Emergency Provider Emergency Medicine; PCP Family Medicine; Visit Provider Emergency Medicine
DX: J44.1 Chronic obstructive pulmonary disease with (acute) exacerbation (principal); I13.0 Hypertensive heart and chronic kidney disease with heart failure and stage 1 through stage 4 chronic kidney disease, or unspecified chronic kidney disease; I50.32 Chronic diastolic (congestive) heart failure; E11.22 Type 2 diabetes mellitus with diabetic chronic kidney disease; J96.11 Chronic respiratory failure with hypoxia; E78.5 Hyperlipidemia, unspecified; Z87.891 Personal history of nicotine dependence; J98.01 Acute bronchospasm; I35.0 Nonrheumatic aortic (valve) stenosis; I25.10 Atherosclerotic heart disease of native coronary artery without angina pectoris; Z99.81 Dependence on supplemental oxygen; N18.9 Chronic kidney disease, unspecified; Z86.73 Personal history of transient ischemic attack (TIA), and cerebral infarction without residual deficits; I25.2 Old myocardial infarction; Z79.899 Other long term (current) drug therapy; E03.9 Hypothyroidism, unspecified; Z79.51 Long term (current) use of inhaled steroids; Z79.84 Long term (current) use of oral hypoglycemic drugs
CPT/HCPCS: 71046; 80048; 85025; 93005; 94640; 99285; A4216

== ENCOUNTER 2023-02-13 20:07 | Observation (INO) | payer MEDICARE, SELFPAY ==
[2023-02-13] VITALS (9 sets, daily range): BP systolic 104–126; BP diastolic 32–56; PULSE 92–103; RESP 18–23; TEMP 36.3–36.8; O2SAT 95–100; BMI 32.0; BMI 31.0
[2023-02-13 20:32] LABS: Absolute Lymphocyte Count 1.03 X10^3/uL (0.83-4.51); Absolute Neutrophil Count 17.2 X10^3/uL (2.0-7.7); Basophil# 0.03 X10^3/uL; Basophil% 0.1 % (0-1); Eosinophil# 0.67 X10^3/uL; Eosinophils% 3.2 % (0-5); Hematocrit 30.4 % (40-54); Hemoglobin 9.3 g/dL (13.0-16.5); Lymphocyte # 1.03 X10^3/ul (0.83-4.51); Mean Corp Hgb Conc 30.6 g/dL (32-36); Mean Corpuscular Hgb 26.7 pg (27.0-32.0); Mean Corpuscular Volume 87.4 fL (80-94); Mean Platelet Vol. 10.9 fl (6.2-12.0); Monocyte# 1.72 X10^3/uL; Monocyte% 8.3 % (0-10); NRBC Flagged by Analyzer 0 % (0-5); Neutrophil % 83.1 % (47-70); POSITIVE DIFFERENTIAL YES; Platelet Count 207 K/mm3 (150-450); RBC Distribution Width SD 47.8 fl (35.1-43.9); Red Blood Count 3.48 M/mm3 (4.6-6.2); White Blood Count 20.7 K/mm3 (4.4-11.0)
[2023-02-13 20:39] LABS: Differential Indicated SCAN CRITERIA MET
--- NOTE | 2023-02-13 20:46 | CT_ITS ---
INDICATION: neck trauma EXAMINATION: CT CERVICAL SPINE - CT Spine Cervical W/O Contrast Injection TECHNIQUE: Helically acquired images were obtained of the cervical spine. 2D reformatted images were reviewed. A radiation dose optimization technique was used for this scan. IV Contrast dosage and agent: None. RADIATION DOSAGE (If Supplied By Facility): CTDIvol = ( 32.46 ) mGy, DLP = ( 1518.97 ) mGycm COMPARISON: No relevant prior comparison study available FINDINGS: VERTEBRAE: No fracture or traumatic subluxation. Small sclerotic lesion in the left transverse process of T1. Straightening of the cervical spine. Normal craniocervical junction and cervicothoracic junction. DISCS and SPINAL CANAL: Narrowing of C4-C5, C5-C6 and C6-C7 disc spaces. Posterior lateral degenerative spurs with mild narrowing of the neural foramina worse on the left side. No critical stenosis. NECK SOFT TISSUES: No prevertebral soft tissue swelling. There is no cervical adenopathy. LUNG APICES: Clear. CT/Spine Cervical without Contras IMPRESSION: 1. No evidence of acute cervical spinal fracture or spondylolisthesis. 2. Multilevel degenerative changes of the cervical spine. 3. Straightening of the cervical spine which could be due to muscle spasm.. Electronically Signed: Jay Dowd MD at 21:38 EST ,
--- NOTE | 2023-02-13 20:46 | CT_ITS ---
INDICATION: fall EXAMINATION: CT BRAIN - CT Head or Brain W/O Contrast Injection TECHNIQUE: Multiple axial images were obtained of the head without intravenous contrast. A radiation dose optimization technique was used for this scan. IV Contrast dosage and agent: None. RADIATION DOSAGE (If Supplied By Facility): CTDIvol = ( 44.99 ) mGy, DLP = ( 1518.97 ) mGycm COMPARISON: No relevant prior comparison study available FINDINGS: BRAIN PARENCHYMA: No intra- or extra-axial hemorrhage. No evidence of acute infarct. No intracranial mass or mass effect. Mild chronic periventricular deep white matter changes likely due to microvascular disease Small dural based ossification small calcified meningioma. There is preservation of the gonzalez/white matter interface. Posterior fossa structures are unremarkable. Atherosclerotic calcifications of the cavernous internal carotid arteries. CSF SPACES: Appropriate for age. No hydrocephalus. Basal cisterns are patent. CALVARIUM, SKULL BASE, PARANASAL SINUSES AND MASTOID AIR CELLS: Clear. Mastoid air cells are not aerated. ORBITS: Both globes, extraocular muscles, optic nerves and retrobulbar fat appear unremarkable. CT/Brain/Head without Contrast IMPRESSION: No acute intracranial process. Electronically Signed: Jay Dowd MD at 21:34 EST ,
--- NOTE | 2023-02-13 20:49 | EDS_ITS ---
HPI History of Present Illness Chief Complaint: Shortness of Breath Narrative Narrative: 82-year-old male presenting with dyspnea. He states has had this for over a year. He states that its been progressive. He wears 2 L of oxygen at baseline. He states that once they started giving him Lasix his life got worse. Patient states he also has history of anemia, GI bleed secondary to gastric ulcers. Patient denies any black or bloody stools currently. Patient states that when he ambulates at home on his 2 L of oxygen he gets very short of breath and he gets chest pain from time to time and has to sit down for 10 minutes or so. Patient has history of CAD, hyperlipidemia, CHF, COPD, hypertension. Patient states that today he walked into the bathroom and felt like he was getting down and fell to the ground landing on his right shoulder. He does not believe he hit his head or loss conscious. He was unable to get up because he was so weak. He states he felt like he could not see prior to this. Apparently had to be bagged for couple of minutes on EMS arrival. He is awake and alert and has no complaints of chronic dyspnea at this time. Denies chest pain currently. [facility] Medical History Aortic valve stenosis, acquired Atherosclerotic heart disease of minto coronary artery without angina pectoris CAD (coronary artery disease) Chronic respiratory failure with hypoxia COPD (chronic obstructive pulmonary disease) Diabetes Diabetes mellitus, type 2 Former smoker Former tobacco use History of CAD (coronary artery disease) History of left heart catheterization (LHC) (~03/15/22) HLD (hyperlipidemia) HTN (hypertension) Hypertension Hypothyroidism Kidney disease Mild left ventricular hypertrophy Myocardial infarct Nonrheumatic aortic (valve) stenosis Obesity On home oxygen therapy Polyarthralgia TIA (transient ischemic attack) Home Medications atorvastatin 80 mg tablet 80 mg PO DAILY CHOLESTEROL 05/02/21 [History Last Taken 05/23/22] cholecalciferol (vitamin D3) 25 mcg (1,000 unit) capsule 25 mcg PO DAILY vitamin 05/02/21 [History Last Taken 05/24/22] ipratropium 0.5 mg-albuterol 3 mg (2.5 mg base)/3 mL nebulization soln 3 ml inhalation 4X/DAY PRN sob 05/02/21 [History Last Taken 05/23/22] liothyronine 25 mcg tablet 25 mcg PO DAILY THYROID 05/02/21 [History Last Taken 05/24/22] omega-3 fatty acids-vitamin E 1,000 mg capsule 2 cap PO BID SUPPLEMENT 05/02/21 [History Last Taken 05/24/22] tiotropium bromide 18 mcg capsule with inhalation device (Spiriva with HandiH aler) 18 mcg inhalation DAILY SOB 05/02/21 [History Last Taken 05/24/22] vitamins A,C,E-apeg-gukndm 4,296 mcg-226 mg-90 mg capsule (PreserVision AREDS) 1 cap PO BID vitamin 12/13/21 [History Last Taken 05/24/22] lisinopril 20 mg tablet (Zestril) 20 mg PO DAILY blood pressure 03/12/22 [History Last Taken 05/24/22] glimepiride 2 mg tablet 2 mg PO DAILY DM 05/24/22 [History Last Taken 05/24/22] furosemide 40 mg tablet (Lasix) 40 mg PO DAILY diuretic #90 tabs 07/06/22 [Rx Last Taken Unknown] empagliflozin 25 mg tablet (Jardiance) 25 mg PO DAILY dm 11/16/22 [History Last Taken Unknown] pantoprazole 40 mg tablet,delayed release (Protonix) 40 mg PO BID 12 weeks #168 tabs 11/18/22 [Rx Last Taken Unknown] sucralfate 1 gram tablet 1 g PO Q6H 8 weeks #224 tabs 11/18/22 [Rx Last Taken Unknown] prednisone 20 mg tablet 60 mg (3 x 20 mg) PO DAILY #12 TABLETS 02/08/23 [Rx Last Taken Unknown] Allergy/AdvReac Type Severity Reaction Status Date / Time codeine AdvReac Upset Verified 02/13/23 20:13 Stomach Family History Mother CVA (cerebral vascular accident) Heart disease Myocardial infarction Hx of CABG Hypertension Father CVA (cerebral vascular accident) Heart disease Surgical History S/P cataract extraction Social History household members: none housing: house Smoking Status: Former smoker how long ago did patient quit smoking: Quit 2011, prior 1 ppd since teen. alcohol intake: former year quit: 2010 substance use type: does not use ROS ROS ED Constitutional Constitutional ED: Denies chills, fever(s) or sweats Eyes Eyes: Denies blurry vision or change in vision ENT ENT ED: Denies ear pain or sore throat Cardiovascular Cardiovascular: Reports chest pain, palpitations and other Details: Near syncope ; Denies racing heartbeat Respiratory/Chest Respiratory/Chest: Reports dyspnea and dyspnea on exertion; Denies cough or sputum Gastrointestinal Gastrointestinal: Denies abdominal pain, constipation, diarrhea, nausea or vomiting Genitourinary Genitourinary ED: Denies dysuria, hematuria or urinary frequency Musculoskeletal Musculoskeletal: Denies arthralgias, myalgias or neck pain Integumentary Denies abscess, Abrasions or rash Neurologic Neurologic: Denies headache(s), paresthesias or weakness Psychiatric Psychiatric: Denies anxiety, depression, suicidal ideation or suicidal thoughts Endocrine Endocrinology: Denies polydipsia or polyuria EXAM Physical Exam Const Vital Signs: 02/13/23 20:08 02/13/23 20:14 02/13/23 20:30 Temperature 97.4 F L Temperature Source Temporal Pulse Rate 97 Respiratory Rate 20 H Respiratory Effort Short of Breath Blood Pressure 126/56 H Blood Pressure Mean 79 Pulse Ox 98 Oxygen Delivery Method Nasal Cannula Nasal Cannula Nasal Cannula Oxygen Flow Rate (L/min) 2 2 2 Fraction of Inspired Oxygen (FIO2) 02/13/23 20:31 02/13/23 21:49 02/13/23 21:49 Temperature 97.4 F L 97.5 F L 97.5 F L Temperature Source Temporal Oral Oral Pulse Rate 95 103 H 101 H Respiratory Rate 20 H 23 H 18 Respiratory Effort Blood Pressure 126/56 H 105/32 L 105/32 L Blood Pressure Mean 79 56 56 Pulse Ox 95 98 98 Oxygen Delivery Method Nasal Cannula Nasal Cannula Nasal Cannula Oxygen Flow Rate (L/min) 2 98 Fraction of Inspired Oxygen (FIO2) 02/13/23 22:24 02/13/23 22:35 02/13/23 22:36 Temperature 98.2 F Temperature Source Temporal Pulse Rate 95 92 96 Respiratory Rate 20 H 20 H 20 H Respiratory Effort Blood Pressure 104/42 L 104/42 L 104/42 L Blood Pressure Mean 62 62 62 Pulse Ox 100 97 96 Oxygen Delivery Method Nasal Cannula Room Air Oxygen Flow Rate (L/min) Fraction of Inspired Oxygen (FIO2) 2 Positive well nourished, obese and unkempt General Appearance ED: unkempt Nutritional Appearance: obese HEENT Reports moist mucous membranes Eyes PERRL and EOMs intact bilaterally General Eye ED: Negative for pale conjunctiva or scleral icterus Neck no lymphadenopathy Resp normal respiratory effort Cardio regular rate and regular rhythm GI non-tender Neuro oriented x3 Sensorium / Orientation: alert Motor Exam: general weakness Psych mental status grossly normal Appearance: unkempt Skin no wounds and skin turgor normal MDM MDM MDM Narrative Medical decision making narrative: Patient presenting with chest pain, shortness of breath, near syncope. Differential includes ACS, CHF, syncope, near-syncope, dehydration, electrode normalities, anemia, GI bleed, pneumonia, UTI, concussion, skull fracture, intracranial hemorrhage, C-spine fracture. CBC was obtained to assess white blood cell count, hemoglobin, platelets. BMP to assess renal function, electrolytes, glucose, anion gap. High-sensitivity troponin EKG to assess for ischemia/dysrhythmia. Chest x-ray to rule out pneumonia or CHF. Urinalysis to assess for UTI. Patient became hypoxic upon sitting forward in the bed for auscultation better. Abnormal breath sounds currently. He is normotensive with normal pulse ox on 2 L at 98%. He is afebrile. EKG on my interpretation shows a normal sinus rhythm with a ventricular rate of 90 bpm with premature atrial complexes. CBC shows leukocytosis of 20.7. Hemoglobin close to baseline at 9.3. Platelets normal at 207. Creatinine slightly evaluated 3.01 but near baseline. High-sensitivity troponin 46. BNP 43.2. Urinalysis negative for infection. Chest x-ray my interpretation shows no acute process. Radiologist interprets this and agrees. CT brain and cervical spine are negative for acute findings. Given the patient's weakness and severe shortness of breath even just sitting forward in the bed we opted to admit the patient. I spoke with the hospitalist for admission and he recommended Rocephin and azithromycin for antibiotic coverage in case this is pneumonia. Patient will have a VQ scan while he is in the hospital to rule out PE given his chest pain and shortness of breath. Patient minimal this plan. Impression: 1. Chest pain 2. Dyspnea 3. Leukocytosis 4. Near syncope Lab Data Labs: Laboratory Results - last 24 hr 02/13/23 02/13/23 20:20 21:48 WBC 20.7 H RBC 3.48 L Hgb 9.3 L Hct 30.4 L MCV 87.4 MCH 26.7 L MCHC 30.6 L RDW Std Deviation 47.8 H RDW Coeff of John 15.0 H Plt Count 207 MPV 10.9 Immature Gran % (Auto) 0.300 Neut % (Auto) 83.1 H Lymph % (Auto) 5.0 L [place] % (Auto) 8.3 Eos % (Auto) 3.2 Baso % (Auto) 0.1 Absolute Neuts (auto) 17.2 H Absolute Lymphs (auto) 1.03 Nucleated RBC % 0 Differential Comment SCANNED Diff Path Review July Sodium 143 Potassium 4.0 Chloride 108 H Carbon Dioxide 29.0 Anion Gap 6 BUN 97 H Creatinine 3.01 H Estim Creat Clear Calc 16.18 Est GFR (MDRD) Af Amer 26 L Est GFR (MDRD) Non-Af 21 L BUN/Creatinine Ratio 32.2 H Glucose 258 H Calcium 9.6 Troponin I High Sens 46 B-Natriuretic Peptide 43.2 Urine Color Yellow Urine Clarity Clear Urine pH 5.0 Ur Specific [place] 1.015 Urine Protein 30 H Urine Glucose (UA) 1000 H Urine Ketones Negative Urine Occult Blood 10 H Urine Nitrite Negative Urine Bilirubin Negative Urine Urobilinogen Normal Ur Leukocyte Esterase Negative Urine RBC 0 SEEN Urine WBC 0 SEEN Ur Squamous Epith Cells 0 SEEN Urine Bacteria 0 SEEN Urine Mucus 0 SEEN Radiography Diagnostic Testing: Clinical Impression(s) from Imaging Studies Brain CT 02/13/23 20:46 IMPRESSION: No acute intracranial process. Electronically Signed: Jay Dowd MD at 21:34 EST , Cervical Spine CT 02/13/23 20:46 IMPRESSION: 1. No evidence of acute cervical spinal fracture or spondylolisthesis. 2. Multilevel degenerative changes of the cervical spine. 3. Straightening of the cervical spine which could be due to muscle spasm.. Electronically Signed: Jay Dowd MD at 21:38 EST , Chest X-Ray 02/13/23 21:02 IMPRESSION: No radiographic evidence of acute cardiopulmonary disease. Electronically Signed: Jay Dowd MD at 22:05 EST , Discharge Plan Triage Chief Complaint: Shortness of Breath ED Provider: Jr Thomas Dx/Rx/DC Orders Prescriptions: No Action furosemide [Lasix] 40 mg tablet 40 mg PO DAILY Qty: 90 3RF atorvastatin 80 mg tablet 80 mg PO DAILY Patient Comments: TAKE 1 TABLET BY MOUTH ONCE DAILY ipratropium-albuterol 0.5 mg-3 mg(2.5 mg base)/3 mL solution for nebulization 3 ml inhalation 4X/DAY PRN (Reason: sob) Patient Comments: inhale contents of 1 vial ( 3 milliliters ) in nebulizer by mouth... (REFER TO PRESCRIPTION NOTES). liothyronine 25 mcg tablet 25 mcg PO DAILY Patient Comments: TAKE 1 TABLET BY MOUTH ONCE DAILY FOR 90 DAYS tiotropium bromide [Spiriva with HandiHaler] 18 mcg capsule, w/inhalation device 18 mcg INHALATION DAILY Patient Comments: INHALE THE CONTENTS OF 1 CAPSULE TWICE EACH TIME VIA HANDIHALER ONCE DAILY cholecalciferol (vitamin D3) 25 mcg (1,000 unit) Capsule 25 mcg PO DAILY omega-3 fatty acids-vitamin E 1,000 mg Capsule 2 cap PO BID PreserVision AREDS [id number] Capsule 1 cap PO BID lisinopril [Zestril] 20 mg tablet 20 mg PO DAILY Hold Instructions: Resume on 03/18/22. glimepiride 2 mg tablet 2 mg PO DAILY Patient Comments: take 1 tablet by mouth once daily WITH FIRST MEAL OF THE DAY Jardiance 25 mg tablet 25 mg PO DAILY sucralfate 1 gram tablet 1 g PO Q6H 56 Days Qty: 224 0RF pantoprazole [Protonix] 40 mg tablet,delayed release (DR/EC) 40 mg PO BID 84 Days Qty: 168 0RF prednisone 20 mg tablet 60 mg PO DAILY Qty: 12 0RF Primary Care Provider: Ardianna Nichols Referrals: Adrianna Nichols DO [Primary Care Provider] -
[2023-02-13 20:59] LABS: Anion Gap 6 (5-15); BUN 97 mg/dL (7-18); BUN/Creat Ratio 32.2 RATIO (10-20); Calcium,Total 9.6 mg/dL (8.5-10.1); Chloride 108 mmol/L (98-107); Creatinine, Serum 3.01 mg/dL (0.70-1.30); EST Glomerular Filtration Rate 21 mL/min (>60); Est Glom Filt Rate - Afr Amer 26 mL/min (>60); Estimated Creatinine Clearance 16.18 ml/min; Glucose 258 mg/dL (74-106); Sodium Level 143 mmol/L (136-145); Troponin-I HS 46 pg/mL (3.0-78.0)
--- NOTE | 2023-02-13 21:02 | RAD_ITS ---
INDICATION: chest pain EXAMINATION/TECHNIQUE: X-RAY - XR Chest 1 View COMPARISON: Prior study dated: 02/08/2023. FINDINGS: LINES/DEVICES: Defibrillating pad overlying the right chest. LUNGS: No consolidation, edema or effusion. No pneumothorax. MEDIASTINUM AND CARDIOVASCULAR STRUCTURES: Cardiac silhouette not enlarged. Central airways and mediastinal contour are unremarkable. BONES AND SOFT TISSUES: Unremarkable. RAD/Chest 1 View (Portable) IMPRESSION: No radiographic evidence of acute cardiopulmonary disease. Electronically Signed: Jay Dowd MD at 22:05 EST ,
--- NOTE | 2023-02-13 21:04 | ED.RN ---
ATTEMPTED TO CALL [facility] PER PT REQUEST, NO ANSWER. LEFT A MESSAGE
[2023-02-13 21:05] LABS: BNP,B-Type NATRIURETIC PEPTIDE 43.2 pg/mL (0-100)
[2023-02-13 21:08] LABS: Differential Comment SCANNED
[2023-02-13 21:52] LABS: Bacteria 0 SEEN /hpf (None Seen); Mucous, Urine 0 SEEN /hpf (<or=2+); Red Blood Cells-Urine 0 SEEN /hpf (0-5); Squamous Epithelial Cells - UA 0 SEEN /hpf (0-5); White Blood Cells 0 SEEN /hpf (0-5)
[2023-02-13 21:56] LABS: Color, Urine Yellow (Yellow); Glucose, Dipstick 1000 mg/dl (Normal); Ketone-Dipstick Negative (Negative); Leukocyte Esterase-Dipstick Negative /ul (Negative); Nitrite-Dipstick Negative (Negative); Occult Blood-Urine 10 /ul (Negative); Protein-Dipstick 30 mg/dl (Negative); Specific Gravity, Urine 1.015 (1.002-1.030); Urine Bilirubin Dipstick Negative (Negative); Urine Clarity Clear (Clear); Urine Urobilinogen Normal (Normal)
[2023-02-13] MEDS: Ondansetron 4 MG/2 ML Vial IV (22:41)
[2023-02-13] MEDS: 0.9% Normal Saline (500mL Bag) 500 ML 999 ML IV (22:41)
--- NOTE | 2023-02-13 22:48 | HP.PCM.HOS_ITS ---
[facility] - General General Date of Admission: 02/13/23 Date of Service: 02/13/23 Chief Complaint: Shortness of breath, near syncope and fall. HPI Narrative BEULAH WEST, is a 82 M with a past medical history of essential hypertension, hyperlipidemia, hypothyroidism; on liothyronine 25 mcg daily, diabetes mellitus type 2; of unknown control, obesity; with BMI of 32 this admission, history of tobacco abuse; with subsequent COPD and chronic hypoxic respiratory failure on 2 L nasal cannula continuously, coronary artery disease; status post OH with left heart cath in March 2022, chronic diastolic CHF; with preserved left ventricular ejection fraction, history of stenosis of aortic valve, history of TIA, chronic kidney disease; stage IV with a baseline creatinine of 2.88 mg/dL and a BUN of 97 mg/dL last week, GERD; with history of GI bleed secondary to gastric ulcers and osteoarthritis who presents to [facility] ER complaining of severe shortness of breath, near syncope and fall. Mr. West states he has been getting progressively more short of breath over the past year in spite of wearing his 2 L of oxygen at home. Then on the evening of February 13, 2023, he noted severe shortness of of breath with minimal exertion with associated chest pain that was intermittent and will resolve after approximately 10 minutes of rest. He further states that he walked to the bathroom and felt like he was going to fall down and land on his right shoulder though he does not believe he hit his head or lost consciousness but he was unable to get up because he was so weak and he also states like he felt like he could not see. EMS was then called and he had to be bagged for a few minutes for severe hypoxia. He is awake and alert at this time and denies chest pain or severe shortness of breath at rest. He also denies blood in stools or blood in his urine or other obvious bleeding. In the ER he was noted to have severe leukocytosis of 20.7 present on admission with negative urinalysis and chest x- ray but with suspected PE with an elevated D-dimer of 0.55 present on admission with V/Q scan pending at this time (because CTA is contraindicated due to his poor renal function) complicated by suspected early pneumonia and acute kidney injury in the setting of chronic kidney disease stage IV with a creatinine of 3.01 mg/dL and a BUN of 97 mg/dL this admission with patient triggering SIRS criteria in the ER and he was then admitted to the PCU for ongoing care for stay that is expected to be greater than 48 hours. [facility] Medical History (Updated 02/14/23 @ 00:[address] Irwin Landa, ) Aortic valve stenosis, acquired Atherosclerotic heart disease of three affiliated coronary artery without angina pectoris CAD (coronary artery disease) Chronic respiratory failure with hypoxia COPD (chronic obstructive pulmonary disease) Diabetes Diabetes mellitus, type 2 Former smoker Former tobacco use History of CAD (coronary artery disease) History of left heart catheterization (LHC) (~03/15/22) HLD (hyperlipidemia) HTN (hypertension) Hypertension Hypothyroidism Kidney disease Mild left ventricular hypertrophy Myocardial infarct Nonrheumatic aortic (valve) stenosis Obesity On home oxygen therapy Polyarthralgia TIA (transient ischemic attack) Home Medications atorvastatin 80 mg tablet 80 mg PO DAILY CHOLESTEROL 05/02/21 [History Last Taken 05/23/22] cholecalciferol (vitamin D3) 25 mcg (1,000 unit) capsule 25 mcg PO DAILY vitamin 05/02/21 [History Last Taken 05/24/22] ipratropium 0.5 mg-albuterol 3 mg (2.5 mg base)/3 mL nebulization soln 3 ml inhalation 4X/DAY PRN sob 05/02/21 [History Last Taken 05/23/22] liothyronine 25 mcg tablet 25 mcg PO DAILY THYROID 05/02/21 [History Last Taken 05/24/22] omega-3 fatty acids-vitamin E 1,000 mg capsule 2 cap PO BID SUPPLEMENT 05/02/21 [History Last Taken 05/24/22] tiotropium bromide 18 mcg capsule with inhalation device (Spiriva with HandiHaler) 18 mcg inhalation DAILY SOB 05/02/21 [History Last Taken 05/24/22] vitamins A,C,F-aili-zuwjrv 4,296 mcg-226 mg-90 mg capsule (PreserVision AREDS) 1 cap PO BID vitamin 12/13/21 [History Last Taken 05/24/22] lisinopril 20 mg tablet (Zestril) 20 mg PO DAILY blood pressure 03/12/22 [History Last Taken 05/24/22] glimepiride 2 mg tablet 2 mg PO DAILY DM 05/24/22 [History Last Taken 05/24/22] furosemide 40 mg tablet (Lasix) 40 mg PO DAILY diuretic #90 tabs 07/06/22 [Rx Last Taken Unknown] empagliflozin 25 mg tablet (Jardiance) 25 mg PO DAILY dm 11/16/22 [History Last Taken Unknown] pantoprazole 40 mg tablet,delayed release (Protonix) 40 mg PO BID 12 weeks #168 tabs 11/18/22 [Rx Last Taken Unknown] sucralfate 1 gram tablet 1 g PO Q6H 8 weeks #224 tabs 11/18/22 [Rx Last Taken Unknown] prednisone 20 mg tablet 60 mg (3 x 20 mg) PO DAILY #12 TABLETS 02/08/23 [Rx Last Taken Unknown] Allergy/AdvReac Type Severity Reaction Status Date / Time codeine AdvReac Upset Verified 02/13/23 20:13 Stomach Family History Mother CVA (cerebral vascular accident) Heart disease Myocardial infarction Hx of CABG Hypertension Father CVA (cerebral vascular accident) Heart disease Surgical History S/P cataract extraction Social History household members: none housing: house Smoking Status: Former smoker how long ago did patient quit smoking: Quit 2010, prior 1 ppd since teen. alcohol intake: former year quit: 2010 substance use type: does not use ROS ROS Narrative Review of systems: Constitutional: Patient denies fever or chills. Eyes: Patient denies blurry vision. ENT: Patient denies ear pain, runny nose or sore throat. Cardiovascular: Patient admits to chest pain, palpitations and near syncope. He denies sensation of heart racing. Respiratory: Patient admits to dyspnea on exertion that progressed to shortness of breath at rest. He denies cough or sputum production. Gastrointestinal: Patient denies abdominal pain, constipation, diarrhea, nausea or vomiting. Genitourinary: Patient denies dysuria, hematuria or urinary frequency. Musculoskeletal: Patient denies arthralgias, myalgias or neck pain. Integumentary: Patient denies abscess, abrasions or rash. Neurologic: Patient denies headache, paresthesias or focal neurologic deficits. Psychiatric: Patient denies anxiety, depression or suicidal ideation. Endocrinology: Patient denies polyuria, polyphagia or polydipsia. Allergic: Patient denies lip swelling, tongue swelling or urticaria. Hematology: Patient denies easy bleeding or easy bruisability. 14 point review of systems otherwise negative except for positives noted above in HPI. Vital Signs Vital Signs Vital Signs: 02/13/23 20:08 02/13/23 20:14 02/13/23 20:30 Temperature 97.4 F L Temperature Source Temporal Pulse Rate 97 Respiratory Rate 20 H Respiratory Effort Short of Breath Blood Pressure 126/56 H Blood Pressure Mean 79 Pulse Ox 98 Oxygen Delivery Method Nasal Cannula Nasal Cannula Nasal Cannula Oxygen Flow Rate (L/min) 2 2 2 Fraction of Inspired Oxygen (FIO2) 02/13/23 20:31 02/13/23 21:49 02/13/23 21:49 Temperature 97.4 F L 97.5 F L 97.5 F L Temperature Source Temporal Oral Oral Pulse Rate 95 103 H 101 H Respiratory Rate 20 H 23 H 18 Respiratory Effort Blood Pressure 126/56 H 105/32 L 105/32 L Blood Pressure Mean 79 56 56 Pulse Ox 95 98 98 Oxygen Delivery Method Nasal Cannula Nasal Cannula Nasal Cannula Oxygen Flow Rate (L/min) 2 98 Fraction of Inspired Oxygen (FIO2) 02/13/23 22:24 02/13/23 22:35 02/13/23 22:36 Temperature 98.2 F Temperature Source Temporal Pulse Rate 95 92 96 Respiratory Rate 20 H 20 H 20 H Respiratory Effort Blood Pressure 104/42 L 104/42 L 104/42 L Blood Pressure Mean 62 62 62 Pulse Ox 100 97 96 Oxygen Delivery Method Nasal Cannula Room Air Oxygen Flow Rate (L/min) Fraction of Inspired Oxygen (FIO2) 2 Weight Weight: 192 lb 7.417 oz Body Mass Index (BMI) 32.0 Physical Exam Const alert, oriented x3, no apparent distress, average body habitus and healthy appearing General Appearance: cooperative HEENT normocephalic, head/scalp atraumatic, hearing grossly normal bilaterally and moist oral mucous membranes Eyes PERRL and EOMs intact bilaterally Neck no lymphadenopathy Resp Resp Narrative: With expertDecreased breath sounds throughout Tory wheeze and scattered rhonchi. Cardio regular rate and regular rhythm GI normal to inspection, nondistended, normoactive bowel sounds, soft to palpation, non-tender and non-distended Skin Skin Narrative: Patient has no evidence of rash at this time. Neuro oriented x3, CN's II-XII intact bilaterally, moves all extremities and no focal motor deficits Sensorium / Orientation: awake, alert, oriented to person, oriented to place and oriented to time Speech: speech normal Motor Exam: strength 5/5 throughout Psych Mood & Affect: anxious Results Medical Records Data Attestation: I reviewed the patient's medical records Lab / Micro Data Attestation: I reviewed the patient's lab results. 02/13/23 20:20 02/13/23 20:20 Labs: Laboratory Results - last 24 hr 02/13/23 20:20: WBC 20.7 H, RBC 3.48 L, Hgb 9.3 L, Hct 30.4 L, MCV 87.4, MCH 26.7 L, MCHC 30.6 L, RDW Std Deviation 47.8 H, RDW Coeff of John 15.0 H, Plt Count 207, MPV 10.9, Immature Gran % (Auto) 0.300, Neut % (Auto) 83.1 H, Lymph % (Auto) 5.0 L, Mchenry % (Auto) 8.3, Eos % (Auto) 3.2, Baso % (Auto) 0.1, Absolute Neuts (auto) 17.2 H, Absolute Lymphs (auto) 1.03, Nucleated RBC % 0, Differential Comment SCANNED, Diff Path Review July, Sodium 143, Potassium 4.0, Chloride 108 H, Carbon Dioxide 29.0, Anion Gap 6, BUN 97 H, Creatinine 3.01 H, Estim Creat Clear Calc 16.18, Est GFR (MDRD) Af Amer 26 L, Est GFR (MDRD) Non-Af 21 L, BUN/Creatinine Ratio 32.2 H, Glucose 258 H, Calcium 9.6, Troponin I High Sens 46, B-Natriuretic Peptide 43.2 02/13/23 21:48: Urine Color Yellow, Urine Clarity Clear, Urine pH 5.0, Ur Specific F[place] 1.015, Urine Protein 30 H, Urine Glucose (UA) 1000 H, Urine Ketones Negative, Urine Occult Blood 10 H, Urine Nitrite Negative, Urine Bilirubin Negative, Urine Urobilinogen Normal, Ur Leukocyte Esterase Negative, Urine RBC 0 SEEN, Urine WBC 0 SEEN, Ur Squamous Epith Cells 0 SEEN, Urine Bacteria 0 SEEN, Urine Mucus 0 SEEN Imagaing Radiology Impression Brain CT 02/13/23 20:46 IMPRESSION: No acute intracranial process. Electronically Signed: Jay Dowd MD at 21:34 EST , Cervical Spine CT 02/13/23 20:46 IMPRESSION: 1. No evidence of acute cervical spinal fracture or spondylolisthesis. 2. Multilevel degenerative changes of the cervical spine. 3. Straightening of the cervical spine which could be due to muscle spasm.. Electronically Signed: Jay Dowd MD at 21:38 EST , Chest X-Ray 02/13/23 21:02 IMPRESSION: No radiographic evidence of acute cardiopulmonary disease. Electronically Signed: Jay Dowd MD at 22:05 EST , Assessment & Plan Assessment/Plan (1) Acute bronchospasm: (2) Acute exacerbation of chronic obstructive pulmonary disease (COPD): PLAN: Plan 1. Severe dyspnea with minimal exertion progressive over the past year in spite of supplemental oxygen suspicious for pulmonary embolism with an elevated D- dimer of 0.55 present on admission - Admit to PCU. Start IV heparin per protocol and obtain V/Q scan of the lungs in the a.m. as patient cannot receive a CT due to his severe chronic kidney disease. Will also check lower extremity Dopplers to evaluate for possible DVT. 2. Leukocytosis of 20.7 present on admission with suspected acute exacerbation of COPD and possible early pneumonia with SIRS criteria triggered in the ER complicating #1 - Patient was not suspected to have sepsis as his vital signs improved with initial round of treatment without fluid bolus or other aggressive care. He was empirically started on Rocephin IV and azithromycin IV along with IV Solu-Medrol and scheduled and as needed nebulizers. 3. Chest pain with near syncope causing fall and inability to get up off the ground due to generalized weakness and fatigue arising from #1 & #2 in the setting of known coronary artery disease with previous OH and aortic stenosis - Serialize troponin. Check echocardiogram to evaluate left ventricular ejection fraction. Check carotid Doppler to evaluate for stenosis. 4. Acute kidney injury; in the setting of stage IV chronic kidney disease compounding #1 ? #3 - Gently volume resuscitate and recheck BMP in the a.m. to ensure improvement. 5. History of GERD; with GI bleed from gastric ulcers - Patient has no evidence of bleeding at this time. But he should be monitored closely. Continue Protonix and Carafate as previous. Therefore, we will check CBC daily to ensure continued stability. 6. Essential hypertension - Hold scheduled antihypertensives in light of #2. Give IV hydralazine as needed for systolic blood pressure greater than 160 mmHg. 7. Hyperlipidemia - Resume statin. 8. Hypothyroidism - Continue liothyronine as previous and check TSH this admission. 9. DM-2; of unknown control - ADA diet. Fingerstick blood sugars before every meal and at bedtime + scale insulin. Check hemoglobin A1c to objectively evaluate quality of diabetic control. 10. Obesity; with BMI of 32 this admission - Weight loss will be recommended. 11. DVT prophylaxis - Patient already on IV heparin for #1. Total time: Approximately 75 minutes. Charges/Coding Visit Charges Inpatient E&M: 12608 Init Hosp L3
--- NOTE | 2023-02-13 22:57 | NM_ITS ---
CLINICAL: 82-year-old male with history of shortness of breath. VENTILATION-PERFUSION LUNG SCINTIGRAPHY COMPARISON: Plain film chest x-ray report 02/13/2023 5.8 FINDINGS: The patient was administered 50.4 mCi 99m Tc DTPA aerosol. The aerosol ventilation study demonstrates heterogeneous ventilation in the bilateral lung hollis without corresponding radiographic changes visualized on review of plain film chest x-ray dated 02/13/2023. Central clumping of the aerosol is identified in the bilateral hemithorax. Following the intravenous administration of 5.8 mCi of 99m Tc MAA, the pulmonary perfusion study reveals matching non-uniform perfusion in the right and left lungs correlating with the previously defined ventilation pattern. No moderate subsegmental or large segmental ventilation-perfusion mismatches are noted. There are regions of retained normal perfusion visualized. NM/Lung Scan Vent/Perf IMPRESSION: 1. VERY LOW PROBABILITY FOR PULMONARY EMBOLUS (<10%) 99m Tc DTPA aerosol ventilation / 99m Tc MAA pulmonary perfusion imaging examination, according to PIOPED II interpretive criteria with regard given to the presence of > 2 ventilation-perfusion matches without corresponding radiographic changes. (Sotsman et al, Radiology 246: 941, 2008 Sotsman et al, J Nucl Med 49: 1741, 2008). 2. Central clumping of the aerosol is secondary to obstructive airway mechanics and or clinical tachypnea. Electronically Signed: Dennis Estes DO at 10:50 EST ,
[2023-02-13] MEDS: Ceftriaxone 1 GM/50 ML BAG IV (23:31)
--- NOTE | 2023-02-13 23:58 | VDLE_ITS ---
Reason For Study: SOB RIGHT LEFT GSV is normal. GSV is normal. CFV is compressible, spontaneous, phasic, CFV is compressible, spontaneous, phasic, competent and demonstrates normal competent, and demonstrates normal augmentation. augmentation. FV is compressible, spontaneous, phasic, FV is compressible, spontaneous, phasic, competent and demonstrates normal competent and demonstrates normal augmentation. augmentation. POP V is compressible, spontaneous, phasic, POP V is compressible, spontaneous, phasic, competent and demonstrates normal competent and demonstrates normal augmentation. augmentation. T/P Trunk is compressible. T/P Trunk is compressible. PTV is compressible. PTV is compressible. RT PerV is compressible. LT PerV is compressible. Procedure This is a venous duplex using B-mode, color flow and spectral Doppler. Exam performed portable in ICU/CCU. The exam was diagnostic. A preliminary report was called and/or faxed to COUNSELOR EDUCATION PROFESSORALMA Saxena. VL/Venous Duplex US - Sesar Extrem Interpretation Summary Deep veins of the bilateral lower extremities are patent and compressible segme ntally. There is no evidence of bilateral lower extremity deep vein thrombosis. The bilateral great saphenous veins appear patent and compressible segmentally. Ordering Physician: Irwin Landa Referring Physician: Adrianna Nichols Performed By: Sergio Carlos RVT
[2023-02-14] VITALS (16 sets, daily range): BP systolic 112–144; BP diastolic 42–68; PULSE 81–104; RESP 16–26; TEMP 36.2–37.1; O2SAT 91–99; BMI 31.0
--- NOTE | 2023-02-14 00:01 | ECHOCS_ITS ---
Reason For Study: Near Syncope Procedure This was a 2D Doppler, Color Flow transthoracic echocardiogram. The study was technically difficult. Contrast injection was performed. Exam performed portable in ICU/CCU. Left Ventricle Normal LV size. Mild concentric left ventricular hypertrophy. The left ventricular ejection fraction is 65 %. Right Ventricle Normal right ventricle. Atria The left and right atria are normal. Mitral Valve Trivial mitral valve insufficiency. Tricuspid Valve Trivial tricuspid valve insufficiency. Unable to estimate RV systolic pressure due to insufficient tricuspid regurgitant envelope. Aortic Valve Moderate diffuse aortic valve calcification. Moderate aortic stenosis. Mild (1+) aortic valve insufficiency. Pulmonic Valve The pulmonic valve is not well visualized. Great Vessels Normal sized aortic root. Pericardium/Pleural No pericardial effusion. Medication Diluted definity 2ml given slow IV push to enhance endocardial definition. MMode/2D Measurements & Calculations LVIDd: 4.7 cm IVSd: 1.3 cm LVOT diam: 1.9 cm LVIDs: 3.2 cm LVPWd: 1.1 cm RVDd: 4.0 cm FS: 33.3 % LVOT area: 2.8 cm2 Ao root diam: 3.0 cm LAV(MOD-bp): 51.4 ml LVAd ap4: 31.1 cm2 LA dimension: 3.5 cm LAV(MOD-bp) Indexed: 26.8 ml/m2 LVLd ap4: 8.5 cm LAV(MOD-sp2): 54.8 ml EDV(MOD-sp4): 92.1 ml LAV(MOD-sp4): 46.7 ml EDV(sp4-el): 95.9 ml LVAs ap4: 17.9 cm2 LVLs ap4: 7.2 cm ESV(MOD-sp4): 36.8 ml ESV(sp4-el): 37.7 ml EF(MOD-sp4): 60.0 % EF(sp4-el): 60.6 % SV(MOD-sp4): 55.2 ml SV(sp4-el): 58.1 ml LA A4 area: 18.1 cm2 RA A4 area: 14.4 cm2 TAPSE: 2.0 cm Time Measurements MV dec time: 0.17 sec Doppler Measurements & Calculations MV E max mando: 96.9 cm/sec Lat Peak E' Mando: 9.5 cm/sec Med Peak E' Mando: 9.5 cm/sec MV A max mando: 148.3 cm/sec E/E' lat: 10.2 E/E' med: 10.2 MV E/A: 0.65 MV V2 max: 151.5 cm/sec MV P1/2t max mando: 105.6 cm/sec Ao V2 max: 342.8 cm/sec MV max P.2 mmHg MV P1/2t: 97.7 msec Ao max P.1 mmHg MV V2 mean: 81.5 cm/sec MV dec slope: 316.7 cm/sec2 Ao V2 mean: 233.0 cm/sec MV mean P.2 mmHg MVA(P1/2t): 2.3 cm2 Ao mean P.9 mmHg MV V2 VTI: 30.8 cm Ao V2 VTI: 76.9 cm MVA(VTI): 2.4 cm2 AV (velocity ratio): 0.34 ALEXY(I,D): 0.96 cm2 ALEXY(V,D): 0.95 cm2 LV V1 max: 116.8 cm/sec SV(LVOT): 73.8 ml PA V2 max: 93.6 cm/sec LV V1 max P.5 mmHg LV V1 mean P.1 mmHg LV V1 mean: 81.6 cm/sec LV V1 VTI: 26.5 cm ECHO/Echo Complete W/ Contrast Interpretation Summary Mild concentric left ventricular hypertrophy. The left ventricular ejection fraction is 65 %. Moderate diffuse aortic valve calcification. Moderate aortic stenosis. Mild (1+) aortic valve insufficiency. The study was technically difficult. Ordering Physician: Irwin Landa Performed By: Ronald Casarez RCS
--- NOTE | 2023-02-14 00:02 | CDU_ITS ---
Reason For Study: Near Syncope Rt. Velocities/BP Lt. Velocities/BP Prox CCA 100.7/16.0 cm/sec. Prox CCA 81.5/15.7 cm/sec. Mid CCA 97.7/14.2 cm/sec. Mid CCA 74.2/15.7 cm/sec. Dist CCA 65.8/13.0 cm/sec. Dist CCA 92.4/19.4 cm/sec. Prox ICA 355.2/81.6 cm/sec. Prox ICA 244.4/56.9 cm/sec. Mid ICA 157.2/34.2 cm/sec. Mid ICA 102.6/30.1 cm/sec. Dist ICA 97.9/27.7 cm/sec. Dist ICA 94.2/39.5 cm/sec. Rt. ICA/CCA = 3.6. Lt. ICA/CCA = 3.3. Prox ECA 90.8/2.9 cm/sec. Prox ECA 289.6/5.2 cm/sec. Rt. Vert. 111.1/18.9 cm/sec. Lt. Vert. 83.3/12.1 cm/sec. Right Extracranial There is heterogeneous, irregular atherosclerotic plaque noted in the right common carotid artery. There is heterogeneous, irregular atherosclerotic plaque noted in the right internal carotid artery. The atherosclerotic plaque causes acoustic shadowing. There is intimal thickening but no significant atherosclerotic plaque noted in the right external carotid artery. Antegrade flow is noted in the right vertebral artery. Left Extracranial There is heterogeneous, irregular atherosclerotic plaque noted in the left common carotid artery. There is heterogeneous, irregular atherosclerotic plaque noted in the left internal carotid artery. The atherosclerotic plaque causes acoustic shadowing. There is intimal thickening but no significant atherosclerotic plaque noted in the left external carotid artery. Antegrade flow is noted in the left vertebral artery. Procedure Carotid Duplex [id number]. This is a Carotid Duplex examination using B-mode, color flow and specral Doppler. The study was technically difficult due to acoustic shadowing from calcified plaque. Exam performed portable in ICU/CCU. Preliminary results given to DESIGN PROJECT MANAGERALMA Saxena. 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 Severe (>70%) stenosis left extracranial internal carotid. Patent and antegrade vertebrals bilaterally. Ordering Physician: Irwin Landa Referring Physician: Adrianna Nichols Performed By: Sergio Carlos RVT
[2023-02-14] MEDS: MethylPREDNISolone 125 MG/2 ML Vial 60 MG IV ×2 (00:38→10:37)
[2023-02-14] MEDS: 0.9% Normal Saline (1000mL) 1,000 ML 100 ML IV (00:38)
[2023-02-14] MEDS: Azithromycin 500 MG in Dextrose 5%-Water (250mL Bag) 250 ML 250 MG IV (00:39)
[2023-02-14] MEDS: Sucralfate 1 GM Tablet PO ×5 (00:39→20:32)
[2023-02-14 00:46] LABS: D-Dimer Quantitative (DVT/PE) 0.55 FEU/ug/m (0.27-0.49)
[2023-02-14] MEDS: Heparin Injection (Vial) 5,000 UNIT/ML VIAL 6000 UNIT IV (01:07)
[2023-02-14] MEDS: HEPARIN/D5w 25,000 UNITS 25,000 UNITS/250 ML IV.SOLN. 12 UNITS CONT INF (01:08)
[2023-02-14 01:39] LABS: Bedside Glucose 283 mg/dL (74-106)
[2023-02-14] MEDS: 0.9% Saline Lock 10 ML Syringe IV ×2 (01:43→06:31)
[2023-02-14] MEDS: Insulin Lispro 100 UNIT/ML INSULN.PEN SC ×5 (01:44→23:22)
[2023-02-14 04:29] LABS: Absolute Lymphocyte Count 0.43 X10^3/uL (0.83-4.51); Absolute Neutrophil Count 8.4 X10^3/uL (2.0-7.7); Basophil# 0.01 X10^3/uL; Basophil% 0.1 % (0-1); Eosinophil# 0.12 X10^3/uL; Eosinophils% 1.3 % (0-5); Hematocrit 23.1 % (40-54); Hemoglobin 6.8 g/dL (13.0-16.5); Lymphocyte # 0.43 X10^3/ul (0.83-4.51); Lymphocyte % 4.7 % (19-41); Mean Corp Hgb Conc 29.4 g/dL (32-36); Mean Corpuscular Hgb 25.9 pg (27.0-32.0); Mean Corpuscular Volume 87.8 fL (80-94); Mean Platelet Vol. 11.7 fl (6.2-12.0); Monocyte# 0.12 X10^3/uL; Monocyte% 1.3 % (0-10); NRBC Flagged by Analyzer 0 % (0-5); Neutrophil # 8.36 X10^3/uL (2.7-7.7); Neutrophil % 92.3 % (47-70); POSITIVE DIFFERENTIAL YES; Platelet Count 124 K/mm3 (150-450); RBC Distribution Width SD 48.3 fl (35.1-43.9); Red Blood Count 2.63 M/mm3 (4.6-6.2); White Blood Count 9.1 K/mm3 (4.4-11.0)
[2023-02-14 04:30] LABS: Differential Indicated SCAN CRITERIA MET
[2023-02-14 04:54] LABS: Lactic Acid 1.4 mmol/L (0.4-1.9)
[2023-02-14 05:34] LABS: Differential Comment SCANNED
[2023-02-14 05:43] LABS: ALB/GLOB Ratio 0.8 RATIO (0.9-2.4); AST(SGOT) 11 U/L (15-37); Alanine Aminotransfer ALT/SGPT 30 U/L (16-61); Albumin, Serum 2.8 g/dL (3.2-5.0); Alkaline Phosphatase 55 U/L (45-117); Anion Gap 5 (5-15); BUN 103 mg/dL (7-18); BUN/Creat Ratio 33.8 RATIO (10-20); Calcium,Total 8.1 mg/dL (8.5-10.1); Chloride 110 mmol/L (98-107); Creatinine, Serum 3.05 mg/dL (0.70-1.30); EST Glomerular Filtration Rate 21 mL/min (>60); Est Glom Filt Rate - Afr Amer 25 mL/min (>60); Estimated Creatinine Clearance 15.96 ml/min; Globulin 3.4 g/dL (2.2-4.2); Glucose 290 mg/dL (74-106); Phosphorus 3.5 mg/dL (2.5-4.9); Potassium 4.9 mmol/L (3.5-5.1); Protein, Total 6.2 g/dL (6.4-8.2); Sodium Level 142 mmol/L (136-145); Thyroid Stim Hormone (TSH) 1.06 uIU/mL (0.358-3.74)
[2023-02-14] MEDS: Liothyronine 5 MCG Tablet 25 MCG PO (06:17)
[2023-02-14] MEDS: Furosemide 40 MG/4 ML Vial IV (06:37)
[2023-02-14 07:03] LABS: Bedside Glucose 246 mg/dL (74-106)
[2023-02-14] MEDS: Ipratropium 0.5 MG/2.5 ML SOLUTION INHALATION ×3 (07:32→19:09)
[2023-02-14 07:36] LABS: Partial Thromboplast Time 246.2 Seconds (24.1-36.2)
[2023-02-14] MEDS: Pantoprazole Sodium 40 MG Tablet PO ×2 (10:36→20:32)
[2023-02-14] MEDS: Cholecalciferol (VIT D3) 25 MCG TABLET (1,000 UNITS) PO (10:36)
[2023-02-14] MEDS: Multivitamin (Healthy Eyes) Capsule 1 CAP PO ×2 (10:36→20:33)
[2023-02-14 12:37] LABS: Bedside Glucose 222 mg/dL (74-106)
--- NOTE | 2023-02-14 12:55 | CASEMGMT ---
ALMA RINALDI Discharge Planning Assessment: Face to Face with patient for initial transition planning/care coordination assessment. RN NIMCO introduced self and role at [facility], pt alert, answering questions appropriately, voices understanding and is agreeable to participating in assessment. Care providers, pharmacy, and demographics verified. PCP: Magdalena (Had an appointment for today. This RN NIMCO contacted provider's office and cancelled appointment.) Specialists: Bevier Fisher Oyster, Friend (GI)--is scheduled to see next week, Liability Claims Examiner at [facility]--scheduled to see next week Preferred Pharmacy: [facility] Insurance: Scancell [facility] Prescription Benefit: yes Living Will/HPOA: Pt states he does have these documents but he does not know where a copy of them are located. Pt states [facility] has a copy of them and provided this ALMA RINALDI permission to contact them to obtain a copy which was completed and copies of documents placed on pt's chart. LNOK: Pt states he has 6 children that he is not in contact. Pt states his step-daughter Katie is his primary support. Living Arrangements: Pt lives alone in a mobile home with 8 steps to enter but also with a ramp. Pt states he is independent with all of his ADLs and IADLs. Transportation: Pt states he drives or Katie drives when he is not able. DME: Shower chair, cane, walker, w/c, O2 2l/lm from [facility], [employer], nebulizer, pulse oximeter, BP monitor, glucometer and supplies. HHC: states Elizabeth comes to his home to visit intermittently from [facility] but is not familiar with what part of the hospital she is affilitated. SNF: [facility] Pt's goal: Pt states he plans to return home at discharge with the support of Katie. Pt gave this RN NIMCO permission to contact Katie to discuss discharge plan. Plan: Home with family support. Watch for possible HH. Hi Bourgeois RN CM
--- NOTE | 2023-02-14 16:18 | PCM.PN.HOSP ---
Reason for Visit Reason for Visit: Diagnoses Nonrheumatic aortic (valve) stenosis (02/13/23) Chronic obstructive pulmonary disease with (acute) exacerbation (02/13/23) Acute bronchospasm (02/13/23) Syncope and collapse (02/13/23) Subjective Subjective Patient was seen and examined today, his VQ scan today showed low probability of PE, his carotid duplex scans show more than 80% stenosis on the right with a more than 70% stenosis on the left. I talked with Dr. Franklin about this and he stated that the patient could follow-up in his office concerning the results and discuss possible treatment options. Patient's D-dimer when corrected for the patient's age was not elevated, I stopped his heparin drip today, I think it is unlikely that he has pneumonia, I stopped his antibiotics, patient was given a prescription for prednisone on 02/08/2023-he was to take 60 mg daily for several days. This may be the cause of his leukocytosis. Patient was given 1 unit of packed red blood cells today, I will repeat his hemoglobin tonight and again tomorrow. I will also have the patient be seen by OT and PT. Objective Data Objective Data Vital Signs: Vital Signs Temp Pulse Resp BP Pulse Ox O2 Del Method O2 Flow Rate 97.5 F L 99 20 H 127/49 H 94 Nasal Cannula 2 02/14/23 14:20 02/14/23 14:20 02/14/23 14:20 02/14/23 14:20 02/14/23 14:20 02/14/23 14:20 02/14/23 14:20 FiO2 2 02/13/23 22:24 Oxygen Flow Rate (L/min) 2 Oxygen Delivery Method Nasal Cannula Weight: 84.7 kg Body Mass Index (BMI) 31.0 Intake & Output: Intake and Output for Last 24 Hours 02/12/23 02/13/23 02/14/23 23:59 23:59 23:59 Intake Total 1471.52 / 1471.52 Output Total 700 / 700 Balance 771.52 / 771.52 Lab / Micro Data 02/14/23 04:20 02/14/23 04:20 Labs: Laboratory Results - last 24 hr 02/13/23 20:20: WBC 20.7 H, RBC 3.48 L, Hgb 9.3 L, Hct 30.4 L, MCV 87.4, MCH 26.7 L, MCHC 30.6 L, RDW Std Deviation 47.8 H, RDW Coeff of John 15.0 H, Plt Count 207, MPV 10.9, Immature Gran % (Auto) 0.300, Neut % (Auto) 83.1 H, Lymph % (Auto) 5.0 L, Potter % (Auto) 8.3, Eos % (Auto) 3.2, Baso % (Auto) 0.1, Absolute Neuts (auto) 17.2 H, Absolute Lymphs (auto) 1.03, Nucleated RBC % 0, Differential Comment SCANNED, Diff Path Review July, Sodium 143, Potassium 4.0, Chloride 108 H, Carbon Dioxide 29.0, Anion Gap 6, BUN 97 H, Creatinine 3.01 H, Estim Creat Clear Calc 16.18, Est GFR (MDRD) Af Amer 26 L, Est GFR (MDRD) Non-Af 21 L, BUN/Creatinine Ratio 32.2 H, Glucose 258 H, Calcium 9.6, Troponin I High Sens 46, B-Natriuretic Peptide 43.2 02/13/23 21:48: Urine Color Yellow, Urine Clarity Clear, Urine pH 5.0, Ur Specific [place] 1.015, Urine Protein 30 H, Urine Glucose (UA) 1000 H, Urine Ketones Negative, Urine Occult Blood 10 H, Urine Nitrite Negative, Urine Bilirubin Negative, Urine Urobilinogen Normal, Ur Leukocyte Esterase Negative, Urine RBC 0 SEEN, Urine WBC 0 SEEN, Ur Squamous Epith Cells 0 SEEN, Urine Bacteria 0 SEEN, Urine Mucus 0 SEEN 02/14/23 00:20: APTT 25.0, D-Dimer Quant (PE/DVT) 0.55 H* 02/14/23 01:05: POC Glucose 283 H 02/14/23 04:20: WBC 9.1, RBC 2.63 L, Hgb 6.8 L, Hct 23.1 L, MCV 87.8, MCH 25.9 L, MCHC 29.4 L, RDW Std Deviation 48.3 H, RDW Coeff of John 15.0 H, Plt Count 124 L, MPV 11.7, Immature Gran % (Auto) 0.300, Neut % (Auto) 92.3 H, Lymph % (Auto) 4.7 L, Potter % (Auto) 1.3, Eos % (Auto) 1.3, Baso % (Auto) 0.1, Absolute Neuts (auto) 8.4 H, Absolute Lymphs (auto) 0.43 L, Nucleated RBC % 0, Differential Comment SCANNED, Sodium 142, Potassium 4.9, Chloride 110 H, Carbon Dioxide 27.0, Anion Gap 5, BUN 103 H*, Creatinine 3.05 H, Estim Creat Clear Calc 15.96, Est GFR (MDRD) Af Amer 25 L, Est GFR (MDRD) Non-Af 21 L, BUN/Creatinine Ratio 33.8 H, Glucose 290 H, Lactic Acid 1.4, Calcium 8.1 L, Phosphorus 3.5, Magnesium 2.0, Total Bilirubin 0.40, AST 11 L, ALT 30, Alkaline Phosphatase 55, Total Protein 6.2 L, Albumin 2.8 L, Globulin 3.4, Albumin/Globulin Ratio 0.8 L, TSH 1.06 02/14/23 06:24: POC Glucose 246 H 02/14/23 06:30: Blood Type A NEGATIVE, Antibody Screen NEGATIVE, Crossmatch See Detail 02/14/23 07:05: APTT 246.2 H* 02/14/23 12:19: POC Glucose 222 H Radiography Diagnostic Testing: Radiology Impression Brain CT 02/13/23 20:46 IMPRESSION: No acute intracranial process. Electronically Signed: Jay Dowd MD at 21:34 EST Reading Location ID and State: [facility] / CT Tel , Service support , Cervical Spine CT 02/13/23 20:46 IMPRESSION: 1. No evidence of acute cervical spinal fracture or spondylolisthesis. 2. Multilevel degenerative changes of the cervical spine. 3. Straightening of the cervical spine which could be due to muscle spasm.. Electronically Signed: Jay Dowd MD at 21:38 EST , Chest X-Ray 02/13/23 21:02 IMPRESSION: No radiographic evidence of acute cardiopulmonary disease. Electronically Signed: Jay Dowd MD at 22:05 EST , Lung Scan-VQ NM 02/13/23 22:57 IMPRESSION: 1. VERY LOW PROBABILITY FOR PULMONARY EMBOLUS (<10%) 99m Tc DTPA aerosol ventilation / 99m Tc MAA pulmonary perfusion imaging examination, according to PIOPED II interpretive criteria with regard given to the presence of > 2 ventilation-perfusion matches without corresponding radiographic changes. (Sotsman et al, Radiology 246: 941, 2008 Sotsman et al, J Nucl Med 49: 1741, 2008). 2. Central clumping of the aerosol is secondary to obstructive airway mechanics and or clinical tachypnea. Electronically Signed: Dennis Estes DO at 10:50 EST , Echocardiogram 02/14/23 00:01 Interpretation Summary Mild concentric left ventricular hypertrophy. The left ventricular ejection fraction is 65 %. Moderate diffuse aortic valve calcification. Moderate aortic stenosis. Mild (1+) aortic valve insufficiency. The study was technically difficult. Ordering Physician: Irwin Landa Performed By: Ronald Casarez RCS Physical Exam Const alert, oriented x3 and no apparent distress General Appearance: cooperative, well kempt and well developed Orientation / Consciousness: awake, oriented to person and oriented to place HEENT normocephalic, head/scalp atraumatic and moist oral mucous membranes Eyes PERRL, EOMs intact bilaterally and conjunctivae normal Neck supple, no JVD, thyroid normal and no carotid bruits General: trachea midline Resp normal respiratory effort, no retractions, no use of accessory muscles and clear to auscultation bilaterally Auscultation: Negative for rales, rhonchi or wheezes Cardio regular rate, regular rhythm, S1 normal heart sound, S2 normal heart sound, no murmurs, no rub and no gallops GI normal to inspection, nondistended, normoactive bowel sounds, soft to palpation, non-tender and non-distended Extremity no clubbing, cyanosis or edema Skin no rashes or lesions noted General Skin Exam: no breakdown Neuro CN's II-XII intact bilaterally, moves all extremities, no focal motor deficits and no sensory deficits noted Sensorium / Orientation: awake, alert, oriented to person and oriented to place Speech: speech normal Psych affect normal Assessment & Plan Assessment/Plan (1) Near syncope: PLAN: Plan 1. Presyncope-etiology unclear, patient will be monitored on telemetry, I will have PT and OT evaluate the patient #2 acute anemia-etiology unclear, patient had a recent upper GI bleed, he will remain on Carafate and Protonix, patient's H&H will be repeated tonight and again tomorrow. 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
--- NOTE | 2023-02-14 16:38 | CASEMGMT ---
Addendum entered and electronically signed by Nalini Bourgeois RN 02/15/23 07:35: Discussed palliative care referral made at previous admission with Katie who states they did visit with pt but stated he was not appropriate for the program and pt was therefore not enrolled. Hi Bourgeois RN CM Original Note: ALMA RINALDI: This RN CM contacted pt's step daughter Katie per pt's permission. Katie states she checks on the pt every couple of days and so does her daughter. pt does have a couple of friends but primarily is home with going out only a couple of times a week to the store. Katie is aware of [employer] but is not familiar with her affiliation to [facility]. Katie with some concern with pt being home alone with limited support. Discussed possible HH and homebound need. Per Katie, states pt is close to this at baseline. Katie states she plans to visit pt this evening after work and will discuss with the pt. Hi Bourgeois RN CM
[2023-02-14 17:23] LABS: Bedside Glucose 270 mg/dL (74-106)
[2023-02-14] MEDS: Atorvastatin Calcium 80 MG Tablet PO (20:32)
[2023-02-14 20:59] LABS: Hematocrit 25.4 % (40-54); Hemoglobin 7.8 g/dL (13.0-16.5)
[2023-02-14 23:44] LABS: Bedside Glucose 259 mg/dL (74-106)
[2023-02-15 03:14] VITALS: BMI 31.3
[2023-02-15 03:48] LABS: Absolute Lymphocyte Count 0.88 X10^3/uL (0.83-4.51); Absolute Neutrophil Count 7.7 X10^3/uL (2.0-7.7); Basophil# 0.01 X10^3/uL; Basophil% 0.1 % (0-1); Eosinophil# 0.02 X10^3/uL; Eosinophils% 0.2 % (0-5); Hematocrit 25.9 % (40-54); Hemoglobin 7.9 g/dL (13.0-16.5); Lymphocyte # 0.88 X10^3/ul (0.83-4.51); Lymphocyte % 9.6 % (19-41); Mean Corp Hgb Conc 30.5 g/dL (32-36); Mean Corpuscular Hgb 26.6 pg (27.0-32.0); Mean Corpuscular Volume 87.2 fL (80-94); Mean Platelet Vol. 11.6 fl (6.2-12.0); Monocyte# 0.57 X10^3/uL; Monocyte% 6.2 % (0-10); NRBC Flagged by Analyzer 0 % (0-5); Neutrophil # 7.71 X10^3/uL (2.7-7.7); Neutrophil % 83.7 % (47-70); Platelet Count 128 K/mm3 (150-450); RBC Distribution Width CV 14.6 % (11.6-14.6); RBC Distribution Width SD 46.3 fl (35.1-43.9); Red Blood Count 2.97 M/mm3 (4.6-6.2); White Blood Count 9.2 K/mm3 (4.4-11.0)
[2023-02-15 04:20] VITALS: BP 135/62; PULSE 80; RESP 18; TEMP 36.6; O2SAT 98
[2023-02-15] MEDS: Sucralfate 1 GM Tablet PO ×3 (06:17→16:11)
[2023-02-15] MEDS: Liothyronine 5 MCG Tablet 25 MCG PO (06:17)
[2023-02-15] MEDS: 0.9% Saline Lock 10 ML Syringe IV (06:20)
[2023-02-15 06:23] VITALS: BP 148/50; PULSE 78; RESP 20; TEMP 36.2; O2SAT 99
[2023-02-15] MEDS: Insulin Lispro 100 UNIT/ML INSULN.PEN SC ×3 (06:38→16:40)
[2023-02-15 06:51] VITALS: PULSE 84; RESP 18; O2SAT 94
[2023-02-15] MEDS: Ipratropium 0.5 MG/2.5 ML SOLUTION INHALATION ×2 (06:51→12:55)
[2023-02-15 07:14] LABS: Bedside Glucose 170 mg/dL (74-106)
[2023-02-15] MEDS: Pantoprazole Sodium 40 MG Tablet PO (09:04)
[2023-02-15] MEDS: Multivitamin (Healthy Eyes) Capsule 1 CAP PO (09:04)
[2023-02-15 11:22] LABS: Pathologist Review Reviewed
[2023-02-15 12:00] VITALS: BP 129/52; PULSE 89; RESP 18; TEMP 36.2; O2SAT 99
[2023-02-15 12:57] VITALS: PULSE 90; RESP 20
--- NOTE | 2023-02-15 15:00 | DCINST_ITS ---
Discharge Instructions Diet Discharge Diet: 1800 Calorie Control Diet Activity Discharge Activity: Return to Normal Activity Weight Bearing Status: Full weight bearing Follow Up Care Test Results: Test results from this visit will be discussed in further detail at your follow- up appointment, if applicable. Discharge Plan Admission Admit Date/Time: 02/13/23 23:48 Primary Reason for Your Visit: presyncope, anemia Attending Provider: Anthony Sosa Primary Care Provider: Adrianna Nichols Consulting Providers: Irwin Landa Instructions Additional Instructions / Restrictions: Start your prednisone prescription tomorrow Discharge Orders/Prescriptions Prescriptions: New prednisone 10 mg tablet 10 mg PO BID Qty: 15 0RF Rx Instructions: 1 twice a day for 5 days, then 1 daily for 5 days, then stop Continued furosemide [Lasix] 40 mg tablet 40 mg PO DAILY Qty: 90 3RF atorvastatin 80 mg tablet 80 mg PO DAILY Patient Comments: TAKE 1 TABLET BY MOUTH ONCE DAILY ipratropium-albuterol 0.5 mg-3 mg(2.5 mg base)/3 mL solution for nebulization 3 ml inhalation 4X/DAY PRN (Reason: sob) Patient Comments: inhale contents of 1 vial ( 3 milliliters ) in nebulizer by mouth... (REFER TO PRESCRIPTION NOTES). liothyronine 25 mcg tablet 25 mcg PO DAILY Patient Comments: TAKE 1 TABLET BY MOUTH ONCE DAILY FOR 90 DAYS tiotropium bromide [Spiriva with HandiHaler] 18 mcg capsule, w/inhalation device 18 mcg INHALATION DAILY Patient Comments: INHALE THE CONTENTS OF 1 CAPSULE TWICE EACH TIME VIA HANDIHALER ONCE DAILY cholecalciferol (vitamin D3) 25 mcg (1,000 unit) Capsule 25 mcg PO DAILY omega-3 fatty acids-vitamin E 1,000 mg Capsule 2 cap PO BID PreserVision AREDS [id number] Capsule 1 cap PO BID lisinopril [Zestril] 20 mg tablet 10 mg PO DAILY Hold Instructions: Resume on 03/18/22. glimepiride 2 mg tablet 2 mg PO DAILY Patient Comments: take 1 tablet by mouth once daily WITH FIRST MEAL OF THE DAY Jardiance 25 mg tablet 10 mg PO DAILY sucralfate 1 gram tablet 1 g PO Q6H 56 Days Qty: 224 0RF pantoprazole [Protonix] 40 mg tablet,delayed release (DR/EC) 40 mg PO BID 84 Days Qty: 168 0RF aspirin 81 mg tablet,chewable 1 tab PO DAILY Patient Comments: CHEW AND SWALLOW 1 TABLET BY MOUTH ONCE DAILY AT 8:00AM Referrals / Follow Up: Adrianna Nichols DO [Primary Care Provider] - Within 2 Weeks Disposition Disposition (needs filled in before D/C Order can be placed): Home, Self Care
[2023-02-15 15:12] LABS: Bedside Glucose 195 mg/dL (74-106)
[2023-02-15 15:31] LABS: Ferritin 15 ng/mL (26-388); Iron 105 ug/dL (65-175); Iron Binding Capacity,Total 315 ug/dL (250-450); PERCENT IRON SATURATION 33.3 % (15.0-55.0)
--- NOTE | 2023-02-15 15:36 | PCM.DC.SUM ---
Providers Date of Admission: 02/13/23 Date of Discharge: 02/15/23 Primary Care Physician: Dr. Adrianna Nichols DO Reason For Visit: NEAR SYNCOPE, GUZMAN, LEUKOCYTOSIS OF 20.7 WITH Diagnosis Discharge Diagnosis (1) Near syncope: Status: Resolved Code(s): R55 - Syncope and collapse Plan 1. Presyncope-etiology unclear, patient will be monitored on telemetry, I will have PT and OT evaluate the patient #2 acute anemia-etiology unclear, and blood transfusion-patient had a recent upper GI bleed, he will remain on Carafate and Protonix, patient's H&H will be repeated tonight and again tomorrow. 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-complicates care, medical course, recovery, and prognosis #6 type 2 diabetes-blood sugars will be monitored, sliding scale insulin will be given as needed Total clinical time spent by myself addressing the patient's medical issues, reviewing all of his data, and collaborating with patient's care team: 35 minutes Medications at Discharge Home Medications atorvastatin 80 mg tablet 80 mg PO DAILY CHOLESTEROL 05/02/21 cholecalciferol (vitamin D3) 25 mcg (1,000 unit) capsule 25 mcg PO DAILY vitamin 05/02/21 ipratropium 0.5 mg-albuterol 3 mg (2.5 mg base)/3 mL nebulization soln 3 ml inhalation 4X/DAY PRN sob 05/02/21 liothyronine 25 mcg tablet 25 mcg PO DAILY THYROID 05/02/21 omega-3 fatty acids-vitamin E 1,000 mg capsule 2 cap PO BID SUPPLEMENT 05/02/21 tiotropium bromide 18 mcg capsule with inhalation device (Spiriva with HandiHaler) 18 mcg inhalation DAILY SOB 05/02/21 vitamins A,C,H-fizf-idhtop 4,296 mcg-226 mg-90 mg capsule (PreserVision AREDS) 1 cap PO BID vitamin 12/13/21 lisinopril 20 mg tablet (Zestril) 10 mg PO DAILY blood pressure 03/12/22 glimepiride 2 mg tablet 2 mg PO DAILY DM 05/24/22 furosemide 40 mg tablet (Lasix) 40 mg PO DAILY diuretic #90 tabs 07/06/22 empagliflozin 25 mg tablet (Jardiance) 10 mg PO DAILY dm 11/16/22 pantoprazole 40 mg tablet,delayed release (Protonix) 40 mg PO BID 12 weeks #168 tabs 11/18/22 sucralfate 1 gram tablet 1 g PO Q6H 8 weeks #224 tabs 11/18/22 aspirin 81 mg chewable tablet 1 tab PO DAILY anticoagulant 02/15/23 prednisone 10 mg tablet 10 mg PO BID #15 tabs 02/15/23 Hospital Course Operations None Procedures Blood transfusion Summary of Care Provided Minutes Spent on Discharge: 32 Hospital Course: This 82-year-old white male was seen in the emergency room at [facility] with complaints of shortness of breath and generalized weakness, patient states that he felt as if he was going to faint at home. Patient also complained of some chest pain but was nonspecific about this. CBC was obtained in the ER, patient had a leukocytosis with a white count of 20.7, hemoglobin was 9.3, creatinine was slightly elevated at 3.01, chest x-ray showed no acute process he CT of the chest was not done to rule out a PE due to the patient's chronic kidney disease. Patient was admitted to the hospital, he underwent a VQ scan which showed low probability for PE, repeat labs showed a worsening anemia and he was given 1 unit of packed red blood cells, he was also seen by PT and OT. Patient's carotid duplex scan shows more than 80% stenosis on the right and more than 70% stenosis on the left, I talked with vascular surgery and they said that he could follow-up as an outpatient with them in the office to discuss treatment options. I felt it unlikely the patient had pneumonia, repeat white blood cell count was normal. On 02/15/2023, patient was seen and examined: On examination he appeared in good health and spirits. Vital signs as documented. Skin warm and dry and without overt rashes. Neck without JVD, neck was supple, trachea midline, thyroid was normal. Lungs clear bilaterally, normal air movement was noted. Heart exam notable for regular rhythm, normal sounds and absence of murmurs, rubs or gallops. Abdomen unremarkable and without evidence of organomegaly, masses, or abdominal aortic enlargement. Bowel sounds are present, abdomen is not distended. Extremities nonedematous, no cyanosis was noted, no clubbing was noted. Neuro: Cranial nerves II through XII are grossly intact, no focal motor deficits were noted, sensation to light touch and pinprick intact, motor exam 5/5 throughout. Psych: Patient is alert and oriented x3, he does not appear anxious or depressed, he does not appear agitated. Patient appears stable for discharge home on 02/15/2023. Weight / BMI Weight Weight: 85.3 kg Body Mass Index (BMI) 31.3 ABG / Lab / Microbiology Data 02/15/23 03:42 02/14/23 04:20 Laboratory: Laboratory Results - last 24 hr 02/13/23 20:20: Diff Path Review Reviewed 02/14/23 17:04: POC Glucose 270 H 02/14/23 20:48: Hgb 7.8 L, Hct 25.4 L 02/14/23 23:20: POC Glucose 259 H 02/15/23 03:42: WBC 9.2, RBC 2.97 L, Hgb 7.9 L, Hct 25.9 L, MCV 87.2, MCH 26.6 L, MCHC 30.5 L, RDW Std Deviation 46.3 H, RDW Coeff of John 14.6, Plt Count 128 L, MPV 11.6, Immature Gran % (Auto) 0.200, Neut % (Auto) 83.7 H, Lymph % (Auto) 9.6 L, Kimball % (Auto) 6.2, Eos % (Auto) 0.2, Baso % (Auto) 0.1, Absolute Neuts (auto) 7.7, Absolute Lymphs (auto) 0.88, Nucleated RBC % 0 02/15/23 06:36: POC Glucose 170 H 02/15/23 14:09: POC Glucose 195 H 02/15/23 15:05: Iron 105, TIBC 315, Iron Saturation 33.3, Ferritin 15 L Microbiology: Microbiology 02/13/23 23:27 Blood Culture (Wb) - Anticubital Right Bacteria Detection (PCR) - Final Staphylococcus epidermidis 02/13/23 23:27 Blood Culture (Wb) - Anticubital Right Blood Culture - Preliminary Staphylococcus epidermidis Radiography Diagnostic Testing: Radiology Impression Venous Doppler Study 02/13/23 23:58 Interpretation Summary Deep veins of the bilateral lower extremities are patent and compressible segmentally. There is no evidence of bilateral lower extremity deep vein thrombosis. The bilateral great saphenous veins appear patent and compressible segmentally. 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 Severe (>70%) stenosis left extracranial internal carotid. Patent and antegrade vertebrals bilaterally. Ordering Physician: Irwin Landa Referring Physician: Adrianna Nichols Performed By: Sergio Carlos RVT D/C Instructions Discharge Diet: 1800 Calorie Control Diet Weight Bearing Status: Full weight bearing Meaningful Use Info Meaningful Use Diagnoses (Choose all that apply): None applicable Discharge Plan Admission Admit Date/Time: 02/13/23 23:48 Primary Reason for Your Visit: presyncope, anemia Attending Provider: Anthony Sosa Primary Care Provider: Adrianna Nichols Consulting Providers: Irwin Landa Instructions Additional Instructions / Restrictions: Start your prednisone prescription tomorrow Discharge Orders/Prescriptions Prescriptions: New prednisone 10 mg tablet 10 mg PO BID Qty: 15 0RF Rx Instructions: 1 twice a day for 5 days, then 1 daily for 5 days, then stop Continued furosemide [Lasix] 40 mg tablet 40 mg PO DAILY Qty: 90 3RF atorvastatin 80 mg tablet 80 mg PO DAILY Patient Comments: TAKE 1 TABLET BY MOUTH ONCE DAILY ipratropium-albuterol 0.5 mg-3 mg(2.5 mg base)/3 mL solution for nebulization 3 ml inhalation 4X/DAY PRN (Reason: sob) Patient Comments: inhale contents of 1 vial ( 3 milliliters ) in nebulizer by mouth... (REFER TO PRESCRIPTION NOTES). liothyronine 25 mcg tablet 25 mcg PO DAILY Patient Comments: TAKE 1 TABLET BY MOUTH ONCE DAILY FOR 90 DAYS tiotropium bromide [Spiriva with HandiHaler] 18 mcg capsule, w/inhalation device 18 mcg INHALATION DAILY Patient Comments: INHALE THE CONTENTS OF 1 CAPSULE TWICE EACH TIME VIA HANDIHALER ONCE DAILY cholecalciferol (vitamin D3) 25 mcg (1,000 unit) Capsule 25 mcg PO DAILY omega-3 fatty acids-vitamin E 1,000 mg Capsule 2 cap PO BID PreserVision AREDS [id number] Capsule 1 cap PO BID lisinopril [Zestril] 20 mg tablet 10 mg PO DAILY Hold Instructions: Resume on 03/18/22. glimepiride 2 mg tablet 2 mg PO DAILY Patient Comments: take 1 tablet by mouth once daily WITH FIRST MEAL OF THE DAY Jardiance 25 mg tablet 10 mg PO DAILY sucralfate 1 gram tablet 1 g PO Q6H 56 Days Qty: 224 0RF pantoprazole [Protonix] 40 mg tablet,delayed release (DR/EC) 40 mg PO BID 84 Days Qty: 168 0RF aspirin 81 mg tablet,chewable 1 tab PO DAILY Patient Comments: CHEW AND SWALLOW 1 TABLET BY MOUTH ONCE DAILY AT 8:00AM Referrals / Follow Up: Adrianna Nichols DO [Primary Care Provider] - Within 2 Weeks Disposition Disposition (needs filled in before D/C Order can be placed): Home, Self Care Charges/Coding Visit Charges Inpatient E&M: 56726 Disch Hosp >30min
[2023-02-15] MEDS: predniSONE 20 MG Tablet 40 MG PO (16:28)
[2023-02-15 16:38] LABS: Bedside Glucose 151 mg/dL (74-106)
== END 2023-02-15 17:30 | disposition home or self-care (01) | DRG 812 ==
LOC: ED 22:41 → ICU 23:53
PROVIDERS: Admitting Provider Internal Medicine; Emergency Provider Student in an Organized Health Care Education/Training Program; PCP Family Medicine; Visit Provider Internal Medicine
DX: D64.9 Anemia, unspecified (principal); J44.9 Chronic obstructive pulmonary disease, unspecified; I13.0 Hypertensive heart and chronic kidney disease with heart failure and stage 1 through stage 4 chronic kidney disease, or unspecified chronic kidney disease; I50.32 Chronic diastolic (congestive) heart failure; E11.22 Type 2 diabetes mellitus with diabetic chronic kidney disease; N18.4 Chronic kidney disease, stage 4 (severe); J96.11 Chronic respiratory failure with hypoxia; E03.9 Hypothyroidism, unspecified; I65.23 Occlusion and stenosis of bilateral carotid arteries; J98.01 Acute bronchospasm; K21.9 Gastro-esophageal reflux disease without esophagitis; I25.10 Atherosclerotic heart disease of native coronary artery without angina pectoris; E78.5 Hyperlipidemia, unspecified; I25.2 Old myocardial infarction; Z68.32 Body mass index [BMI] 32.0-32.9, adult; R55 Syncope and collapse; Z87.891 Personal history of nicotine dependence; Z79.84 Long term (current) use of oral hypoglycemic drugs; I49.3 Ventricular premature depolarization; E66.9 Obesity, unspecified; Z79.899 Other long term (current) drug therapy; Z79.890 Hormone replacement therapy
CPT/HCPCS: C8929; P9612; 36430; 70450; 71045; 72125; 78582; 80048; 80053; 81001; 82728; 82962; 83540; 83550; 83605; 83735; 83880; 84100; 84443; 84484; 85014; 85018; 85025; 85379; 85730; 86850; 86900; 86901; 86920; 86922; 87040; 87149; 93005; 93306; 93880; 93970; 94640; 96361; 96365; 96366; 96367; 96375; 96376; 99221; 99252; 99285; A9540; A9567; J7030; J7040; J7050; P9016; Q9957; A4216; G0378; G0463; J1940; J2405

== ENCOUNTER 2023-03-07 18:16 | Inpatient (IN) | payer MEDICARE, SELFPAY ==
[2023-03-07] VITALS (7 sets, daily range): BP systolic 126–139; BP diastolic 46–54; PULSE 81–106; RESP 17–24; TEMP 36.6–36.9; O2SAT 94–100; BMI 32.3; BMI 31.1
--- NOTE | 2023-03-07 18:31 | ED.RN ---
PATIENT STATES HE IS ALSO ALLERGIC TO ANOTHER MEDICATION, STATING IT IS FOR BLOOD PRESSURE. IS UNSURE WHAT SPECIFIC MEDICATION IT IS, STATES IT CAUSED HIS ARMS TO GO NUMB.
--- NOTE | 2023-03-07 18:44 | ED.VIS.DYS ---
HPI History of Present Illness Chief Complaint: Shortness of Breath Informant: patient Narrative Narrative: 82-year-old patient with COPD presents by EMS for shortness of breath got worse today. He states he has been resting today and not doing anything in particular other than walking around the house, he thinks the context of this worsening see may be to be conversation. There was no other obvious trigger for this getting worse but it was not sudden. Denies any chest discomfort. Denies any worsening edema in his legs. He has been on Lasix and compliant with that but he is on another diuretic because he states he has issues with his kidneys. He started having a cough and runny diarrhea today. States he has a history of GI bleeding, he did not see the stool today to know whether it is red, black, or not of the above. On no anticoagulants that he knows of. He states he turned his oxygen up from 2-3 today and it did not help so he called 911. Overall he is a very poor historian. [facility] Medical History Acute and chronic respiratory failure with hypoxia Aortic valve stenosis, acquired Atherosclerotic heart disease of [place] coronary artery without angina pectoris CAD (coronary artery disease) Chronic respiratory failure with hypoxia COPD (chronic obstructive pulmonary disease) Diabetes Diabetes mellitus, type 2 Diastolic CHF Former smoker Former tobacco use History of CAD (coronary artery disease) History of left heart catheterization (LHC) (~03/15/22) HLD (hyperlipidemia) HTN (hypertension) Hypertension Hypothyroidism Kidney disease Mild left ventricular hypertrophy Myocardial infarct Nonrheumatic aortic (valve) stenosis Obesity On home oxygen therapy Polyarthralgia TIA (transient ischemic attack) Home Medications atorvastatin 80 mg tablet 80 mg PO DAILY CHOLESTEROL 05/02/21 [History Last Taken 02/14/23] cholecalciferol (vitamin D3) 25 mcg (1,000 unit) capsule 25 mcg PO DAILY vitamin 05/02/21 [History Last Taken 02/15/23] ipratropium 0.5 mg-albuterol 3 mg (2.5 mg base)/3 mL nebulization soln 3 ml inhalation 4X/DAY PRN sob 05/02/21 [History Last Taken 02/15/23] liothyronine 25 mcg tablet 25 mcg PO DAILY THYROID 05/02/21 [History Last Taken 02/15/23] omega-3 fatty acids-vitamin E 1,000 mg capsule 2 cap PO BID SUPPLEMENT 05/02/21 [History Last Taken 02/15/23] tiotropium bromide 18 mcg capsule with inhalation device (Spiriva with HandiHaler) 18 mcg inhalation DAILY SOB 05/02/21 [History Last Taken 02/15/23] vitamins A,C,E-njlb-nboanh 4,296 mcg-226 mg-90 mg capsule (PreserVision AREDS) 1 cap PO BID vitamin 12/13/21 [History Last Taken 02/15/23] lisinopril 20 mg tablet (Zestril) 10 mg PO DAILY blood pressure 03/12/22 [History Last Taken 02/15/23] glimepiride 2 mg tablet 2 mg PO DAILY DM 05/24/22 [History Last Taken 02/15/23] furosemide 40 mg tablet (Lasix) 40 mg PO DAILY diuretic #90 tabs 07/06/22 [Rx Last Taken 02/15/23] empagliflozin 25 mg tablet (Jardiance) 10 mg PO DAILY dm 11/16/22 [History Last Taken 02/15/23] pantoprazole 40 mg tablet,delayed release (Protonix) 40 mg PO BID 12 weeks #168 tabs 11/18/22 [Rx Last Taken 02/15/23] sucralfate 1 gram tablet 1 g PO Q6H 8 weeks #224 tabs 11/18/22 [Rx Last Taken 02/15/23] Allergy/AdvReac Type Severity Reaction Status Date / Time codeine AdvReac Upset Verified 03/07/23 18:27 Stomach Family History Mother CVA (cerebral vascular accident) Heart disease Myocardial infarction Hx of CABG Hypertension Father CVA (cerebral vascular accident) Heart disease Surgical History S/P cataract extraction Social History household members: none housing: house Smoking Status: Former smoker how long ago did patient quit smoking: Quit 2010, prior 1 ppd since teen. alcohol intake: former year quit: 2010 substance use type: does not use ROS ROS ED Constitutional Constitutional ED: Denies chills or fever(s) Eyes Eyes: Denies change in vision or diplopia ENT ENT ED: Denies rhinorrhea or sore throat Cardiovascular Cardiovascular: Reports other Details: Bilateral lower extremity edema no worse than usual ; Denies chest pain or palpitations Respiratory/Chest Respiratory/Chest: Reports cough and dyspnea; Denies sputum Gastrointestinal Gastrointestinal: Reports diarrhea; Denies abdominal pain, nausea or vomiting Genitourinary Genitourinary ED: Denies dysuria or hematuria Musculoskeletal Musculoskeletal: Denies back pain or neck pain Integumentary Denies abscess or rash Neurologic Neurologic: Denies headache(s), paresthesias or weakness Psychiatric Psychiatric: Denies anxiety or suicidal thoughts EXAM Physical Exam Const Vital Signs: 03/07/23 18:22 03/07/23 18:29 03/07/23 18:29 Temperature 98.3 F 98.4 F Temperature Source Oral Oral Pulse Rate 106 H 103 H Respiratory Rate 20 H 17 Respiratory Effort Respiratory Depth Blood Pressure 128/46 H 128/46 H Blood Pressure Mean 73 73 Pulse Ox 97 98 96 Oxygen Delivery Method Nasal Cannula Nasal Cannula Nasal Cannula Oxygen Flow Rate (L/min) 2 2 2 03/07/23 18:55 03/07/23 19:11 03/07/23 20:21 Temperature Temperature Source Pulse Rate 103 H 81 Respiratory Rate 24 H Respiratory Effort Respiratory Depth Blood Pressure 133/49 H Blood Pressure Mean 77 Pulse Ox 98 Oxygen Delivery Method Nasal Cannula Nasal Cannula Oxygen Flow Rate (L/min) 3 03/07/23 18:30 Temperature Temperature Source Pulse Rate Respiratory Rate Respiratory Effort Short of Breath Labored Respiratory Depth Shallow Blood Pressure Blood Pressure Mean Pulse Ox Oxygen Delivery Method Oxygen Flow Rate (L/min) Positive well nourished and well developed General Appearance ED: well developed and NAD HEENT Reports moist mucous membranes normocephalic and atraumatic Eyes PERRL and EOMs intact bilaterally Neck full ROM, supple and no JVD Resp Resp Narrative: Mild tachypnea but no respiratory distress. Diffuse mild expiratory wheezes without any other adventitious breath sounds. Equal breath sounds bilaterally. Trachea midline. Cardio regular rate and regular rhythm Cardio Narrative: Faint heart sounds GI non-tender and non-distended Auscultation: normoactive bowel sounds Palpation: soft Back/Spine no CVA tenderness General Back: other FROM Extremity normal to inspection General Extremety ED: Yes edema; Negative for pulses abnormal or tenderness General Extremity: edema bilateral lower extremity Details: mild (Bilateral pretibial); Negative for pulses abnormal Neuro oriented x3, CN's II-XII intact bilaterally and no sensory deficits noted Sensorium / Orientation: awake and alert Motor Exam: strength 5/5 throughout Psych mental status grossly normal Skin no rashes or lesions noted and no wounds MDM MDM MDM Narrative Medical decision making narrative: Workup basically shows that he has acute on chronic anemia with his hemoglobin down to 7.5, Hemoccult of the stool which closely is brown and not melanotic or red, but Hemoccult positive. His rectal was nontender. His labs are otherwise noted. He is pancytopenic. His creatinine is always elevated, it is lower than his last 1, with his BUN chronically elevated as it is at this time. Troponin and BNP are within normal limits. Chest x-ray 2 views my interpretation shows no acute infection. Radiology in agreement. In the meantime was given nebulizer treatments he says his breathing was better but when I had him pull his pants down for Hemoccult and manipulate himself in bed he became very dyspneic even with this activity. He is doing better from an oxygenation standpoint, I have him back on his to home 2 L now. I reviewed some old records. 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 He is on no anticoagulants but takes aspirin every day., The patient did state that he is taking the sucralfate and pantoprazole that he was recommended. Discussed with Dr. Joy who he saw as an outpatient 2 weeks ago. At this time he agrees with admission and advises continuing the twice daily Protonix, sucralfate, holding aspirin, and he will see the patient in consultation. Patient is amenable to being admitted and getting blood, to which he consents after we discussed pros and cons. History & Record Review Additional record(s) reviewed:: Prior inpatient record, Prior outpatient record and Prior labs Lab Data Attestation: I reviewed the patient's lab results. Labs: Laboratory Results - last 24 hr 03/07/23 18:23 WBC 4.0 L RBC 2.70 L Hgb 7.5 L Hct 24.5 L MCV 90.7 MCH 27.8 MCHC 30.6 L RDW Std Deviation 55.5 H RDW Coeff of John 17.1 H Plt Count 107 L MPV 11.9 Immature Gran % (Auto) 0.200 Neut % (Auto) 63.7 Lymph % (Auto) 25.2 [place] % (Auto) 8.2 Eos % (Auto) 2.5 Baso % (Auto) 0.2 Absolute Neuts (auto) 2.6 Absolute Lymphs (auto) 1.02 Nucleated RBC % 0 Sodium 143 Potassium 4.2 Chloride 107 Carbon Dioxide 29.0 Anion Gap 7 BUN 77 H Creatinine 2.67 H Estim Creat Clear Calc 18.24 Est GFR (MDRD) Af Amer 30 L Est GFR (MDRD) Non-Af 24 L BUN/Creatinine Ratio 28.8 H Glucose 223 H Calcium 9.1 Troponin I High Sens 34 B-Natriuretic Peptide 78.3 Radiography Diagnostic Testing: Clinical Impression(s) from Imaging Studies Chest X-Ray 03/07/23 19:26 IMPRESSION: Poor inspiration with some bibasilar atelectasis. Electronically Signed: Dennis Garcia MD at 19:54 EST , Rhythm Strip Rhythm Strip: Sinus Tach Rate: 104 Ectopy: None EKG Initial EKG: Attestation: I personally reviewed and interpreted this EKG as follows: Interpretation: No Acute Injury Pattern, Sinus Tachycardia and Non-Specific ST Changes Prior EKG tracings: available for review Prior: Unchanged Management Discussion w/another healthcare provider: Hospitalist and [place] (GI friend) Critical Care Time Critical Care Time: Yes Critical care time (excluding procedures): 30-74 minutes (32 min), Including time spent:, Discussing w/Patient &/or Family/[employer], Discussing w/Consultants, Arranging Admission or Transfer and Performing Direct Patient Care at Bedside Discharge Plan Dx/Rx/DC Orders Clinical Impression: Acute on chronic blood loss anemia, COPD (chronic obstructive pulmonary disease), Acute upper gastrointestinal bleeding, Symptomatic anemia Disposition Disposition: [facility] Care [facility]
[2023-03-07 18:53] LABS: Absolute Lymphocyte Count 1.02 X10^3/uL (0.83-4.51); Absolute Neutrophil Count 2.6 X10^3/uL (2.0-7.7); Basophil# 0.01 X10^3/uL; Basophil% 0.2 % (0-1); Eosinophils% 2.5 % (0-5); Hematocrit 24.5 % (40-54); Hemoglobin 7.5 g/dL (13.0-16.5); Lymphocyte # 1.02 X10^3/ul (0.83-4.51); Lymphocyte % 25.2 % (19-41); Mean Corp Hgb Conc 30.6 g/dL (32-36); Mean Corpuscular Hgb 27.8 pg (27.0-32.0); Mean Corpuscular Volume 90.7 fL (80-94); Mean Platelet Vol. 11.9 fl (6.2-12.0); Monocyte# 0.33 X10^3/uL; Monocyte% 8.2 % (0-10); NRBC Flagged by Analyzer 0 % (0-5); Neutrophil # 2.57 X10^3/uL (2.7-7.7); Neutrophil % 63.7 % (47-70); Platelet Count 107 K/mm3 (150-450); RBC Distribution Width CV 17.1 % (11.6-14.6); RBC Distribution Width SD 55.5 fl (35.1-43.9)
[2023-03-07] MEDS: Ipratropium/Albuterol Sulfate 3 ML AMPUL.NEB INHALATION (19:10)
[2023-03-07] MEDS: Albuterol 2.5 MG/3 ML VIAL.NEB. INHALATION (19:10)
[2023-03-07 19:13] LABS: Anion Gap 7 (5-15); BNP,B-Type NATRIURETIC PEPTIDE 78.3 pg/mL (0-100); BUN 77 mg/dL (7-18); BUN/Creat Ratio 28.8 RATIO (10-20); Calcium,Total 9.1 mg/dL (8.5-10.1); Chloride 107 mmol/L (98-107); Creatinine, Serum 2.67 mg/dL (0.70-1.30); EST Glomerular Filtration Rate 24 mL/min (>60); Est Glom Filt Rate - Afr Amer 30 mL/min (>60); Estimated Creatinine Clearance 18.24 ml/min; Glucose 223 mg/dL (74-106); Potassium 4.2 mmol/L (3.5-5.1); Sodium Level 143 mmol/L (136-145); Troponin-I HS 34 pg/mL (3.0-78.0)
--- NOTE | 2023-03-07 19:26 | RAD_ITS ---
STUDY: X-RAY CHEST REASON FOR EXAM: Male, 82 years old. dyspnea TECHNIQUE: PA and lateral views of the chest. COMPARISON: 02/13/2023 FINDINGS: Poor inspiration with some bibasilar atelectasis. There is no demonstrated pleural abnormality. Normal size heart. Normal mediastinum and purnima. Normal visualized pulmonary arteries. Normal visualized aortic arch and descending thoracic aorta. Normal visualized thoracic spine. Normal visualized ribs, clavicles, and shoulders. There is no demonstrated abnormality of the visualized soft tissue structures of the upper abdomen. RAD/Chest PA and Lateral IMPRESSION: Poor inspiration with some bibasilar atelectasis. Electronically Signed: Dennis Garcia MD at 19:54 EST ,
--- NOTE | 2023-03-07 20:41 | PCM.HP.STD ---
HPI - General General Date of Admission: 03/07/23 Date of Service: 03/07/23 Chief Complaint: Worsening shortness of breath, dark stools HPI Narrative BEULAH BRIGHT, is a 82 M who presented to [facility] ED on 03/07/2023 with worsening shortness of breath on exertion and intermittent dark stools. Patient seen at bedside in the ED. Patient was sitting up comfortably in bed, conversing normally, in no acute distress. Patient denies any shortness of breath at rest. Patient lives at home on his own, has family that lives nearby. He states that he is typically able to do most things around the house for himself without issue. However, he noted that he was becoming more short of breath with exertion over the last day or so. He also noted a few episodes of dark stools over that timeframe. Patient follows with Dr. Joy with GI, has had multiple recent admissions for upper GI bleeds with acute on chronic anemia. States that his symptoms today were very similar to previous symptoms he had that led to his admissions, so he called the squad to bring him in this afternoon. Patient otherwise denies any fevers or chills, chest pain, abdominal pain or discomfort, lightheadedness or dizziness. Denies any significant fatigue or weakness at this time. No other acute concerns. [facility] Medical History Acute and chronic respiratory failure with hypoxia Aortic valve stenosis, acquired Atherosclerotic heart disease of [place] coronary artery without angina pectoris CAD (coronary artery disease) Chronic respiratory failure with hypoxia COPD (chronic obstructive pulmonary disease) Diabetes Diabetes mellitus, type 2 Diastolic CHF Former smoker Former tobacco use History of CAD (coronary artery disease) History of left heart catheterization (LHC) (~03/15/22) HLD (hyperlipidemia) HTN (hypertension) Hypertension Hypothyroidism Kidney disease Mild left ventricular hypertrophy Myocardial infarct Nonrheumatic aortic (valve) stenosis Obesity On home oxygen therapy Polyarthralgia TIA (transient ischemic attack) Home Medications atorvastatin 80 mg tablet 80 mg PO DAILY CHOLESTEROL 05/02/21 [History Last Taken 02/14/23] cholecalciferol (vitamin D3) 25 mcg (1,000 unit) capsule 25 mcg PO DAILY vitamin 05/02/21 [History Last Taken 02/15/23] ipratropium 0.5 mg-albuterol 3 mg (2.5 mg base)/3 mL nebulization soln 3 ml inhalation 4X/DAY PRN sob 05/02/21 [History Last Taken 02/15/23] liothyronine 25 mcg tablet 25 mcg PO DAILY THYROID 05/02/21 [History Last Taken 02/15/23] omega-3 fatty acids-vitamin E 1,000 mg capsule 2 cap PO BID SUPPLEMENT 05/02/21 [History Last Taken 02/15/23] tiotropium bromide 18 mcg capsule with inhalation device (Spiriva with HandiHaler) 18 mcg inhalation DAILY SOB 05/02/21 [History Last Taken 02/15/23] vitamins A,C,V-jmfv-hvebmx 4,296 mcg-226 mg-90 mg capsule (PreserVision AREDS) 1 cap PO BID vitamin 12/13/21 [History Last Taken 02/15/23] lisinopril 20 mg tablet (Zestril) 10 mg PO DAILY blood pressure 03/12/22 [History Last Taken 02/15/23] glimepiride 2 mg tablet 2 mg PO DAILY DM 05/24/22 [History Last Taken 02/15/23] furosemide 40 mg tablet (Lasix) 40 mg PO DAILY diuretic #90 tabs 07/06/22 [Rx Last Taken 02/15/23] empagliflozin 25 mg tablet (Jardiance) 10 mg PO DAILY dm 11/16/22 [History Last Taken 02/15/23] pantoprazole 40 mg tablet,delayed release (Protonix) 40 mg PO BID 12 weeks #168 tabs 11/18/22 [Rx Last Taken 02/15/23] sucralfate 1 gram tablet 1 g PO Q6H 8 weeks #224 tabs 11/18/22 [Rx Last Taken 02/15/23] Allergy/AdvReac Type Severity Reaction Status Date / Time codeine AdvReac Upset Verified 03/07/23 18:27 Stomach Family History Mother CVA (cerebral vascular accident) Heart disease Myocardial infarction Hx of CABG Hypertension Father CVA (cerebral vascular accident) Heart disease Surgical History S/P cataract extraction Social History household members: none housing: house Smoking Status: Former smoker how long ago did patient quit smoking: Quit 2011, prior 1 ppd since teen. alcohol intake: former year quit: 2010 substance use type: does not use ROS Constitutional Constitutional: Denies chills, fatigue, fever(s) or weakness Eyes Eyes: Denies change in vision Cardiovascular Cardiovascular: Reports dyspnea on exertion; Denies chest pain, edema, lightheadedness, palpitations or rapid heart rate Respiratory/Chest Respiratory/Chest: Denies cough, shortness of breath at rest or wheezing Gastrointestinal Gastrointestinal: Reports melena; Denies abdominal pain, constipation, diarrhea, nausea or vomiting Genitourinary Genitourinary: Denies dysuria Musculoskeletal Musculoskeletal: Denies arthralgias or back pain Neurologic Neurologic: Denies dizziness, focal weakness or headache(s) Vital Signs Vital Signs Vital Signs: 03/07/23 18:22 03/07/23 18:29 03/07/23 18:29 Temperature 98.3 F 98.4 F Temperature Source Oral Oral Pulse Rate 106 H 103 H Respiratory Rate 20 H 17 Respiratory Effort Respiratory Depth Blood Pressure 128/46 H 128/46 H Blood Pressure Mean 73 73 Pulse Ox 97 98 96 Oxygen Delivery Method Nasal Cannula Nasal Cannula Nasal Cannula Oxygen Flow Rate (L/min) 2 2 2 03/07/23 18:55 03/07/23 19:11 03/07/23 20:21 Temperature Temperature Source Pulse Rate 103 H 81 Respiratory Rate 24 H Respiratory Effort Respiratory Depth Blood Pressure 133/49 H Blood Pressure Mean 77 Pulse Ox 98 Oxygen Delivery Method Nasal Cannula Nasal Cannula Oxygen Flow Rate (L/min) 3 03/07/23 18:30 Temperature Temperature Source Pulse Rate Respiratory Rate Respiratory Effort Short of Breath Labored Respiratory Depth Shallow Blood Pressure Blood Pressure Mean Pulse Ox Oxygen Delivery Method Oxygen Flow Rate (L/min) Weight Weight: 88 kg Body Mass Index (BMI) 32.3 Physical Exam Const alert, oriented x3 and no apparent distress Constitutional Narrative: Pleasant elderly male, obese, sitting comfortably in bed, conversing normally, no acute distress. General Appearance: cooperative and comfortable HEENT normocephalic, head/scalp atraumatic, hearing grossly normal bilaterally and nasal mucous membranes and turbinates normal HEENT Narrative: Dry mucous membranes. Eyes PERRL, EOMs intact bilaterally and conjunctivae normal Neck full ROM, no lymphadenopathy and supple Lymph Lymphatic: no lymphadenopathy noted Chest inspection of chest normal Resp Resp Narrative: Mildly diminished breath sounds bilaterally throughout. Satting well on home 2 L nasal cannula, no increased work of breathing noted. No wheezing or crackles noted. Cardio regular rate, regular rhythm, no murmurs and peripheral pulses 2+ throughout GI normal to inspection, nondistended, normoactive bowel sounds, soft to palpation, non-tender and non-distended Back/Spine normal ROM Extremity normal to inspection, full ROM and no pedal edema Skin no rashes or lesions noted Neuro moves all extremities and no focal motor deficits Speech: speech normal Psych mental status grossly normal Results Lab / Micro Data 03/07/23 18:23 03/07/23 18:23 Labs: Laboratory Results - last 24 hr 03/07/23 18:23: WBC 4.0 L, RBC 2.70 L, Hgb 7.5 L, Hct 24.5 L, MCV 90.7, MCH 27.8, MCHC 30.6 L, RDW Std Deviation 55.5 H, RDW Coeff of John 17.1 H, Plt Count 107 L, MPV 11.9, Immature Gran % (Auto) 0.200, Neut % (Auto) 63.7, Lymph % (Auto) 25.2, [place] % (Auto) 8.2, Eos % (Auto) 2.5, Baso % (Auto) 0.2, Absolute Neuts (auto) 2.6, Absolute Lymphs (auto) 1.02, Nucleated RBC % 0, Sodium 143, Potassium 4.2, Chloride 107, Carbon Dioxide 29.0, Anion Gap 7, BUN 77 H, Creatinine 2.67 H, Estim Creat Clear Calc 18.24, Est GFR (MDRD) Af Amer 30 L, Est GFR (MDRD) Non-Af 24 L, BUN/Creatinine Ratio 28.8 H, Glucose 223 H, Calcium 9.1, Troponin I High Sens 34, B-Natriuretic Peptide 78.3 Micro: Microbiology 03/07/23 19:50 Stool Stool Occult Blood (CLARY) - Final Occult Blood Positive 03/07/23 18:51 Nasal Secretion SARS-CoV-2 & FLU Antigen (Rapid) - Final Rhythm Strip Rhythm Strip: Sinus Tach Rate: 104 Ectopy: None Imagaing Radiology Impression Chest X-Ray 03/07/23 19:26 IMPRESSION: Poor inspiration with some bibasilar atelectasis. Electronically Signed: Dennis Garcia MD at 19:54 EST , Assessment & Plan Assessment/Plan (1) Acute on chronic blood loss anemia: (2) Acute upper gastrointestinal bleeding: PLAN: Plan Patient is an 82-year-old male who presented to [facility] ED on 03/07/2023 with worsening shortness of breath on exertion and intermittent dark stools. 1. Acute on chronic anemia, suspected recurrent upper GI bleed Follows with Dr. Joy, last office visit on 02/21/23, see that note for further details on recent history of GI bleeds. Only mild hemoglobin drop at this time, from 7.9 on 02/15 to 7.5 on 03/07. Stool occult blood positive in ED. ? Admit under inpatient status to PCU. GI consulted. N.p.o. at midnight. IV PPI twice daily for now. Continue home sucralfate. Follow-up a.m. CBC. 2. Type 2 diabetes mellitus with hyperglycemia ? BG 223 on admit. Home regimen of glimepiride 2 mg daily, Jardiance 10 mg daily. Last A1c 7.6% in 2017, no results available since then. Repeat A1c ordered. Sliding scale insulin while inpatient. 3. COPD with chronic respiratory failure on 2 L NC at home ? Satting in mid to high 90s on home 2 L nasal cannula at rest. Does not appear to be in acute exacerbation. Continue home Spiriva, DuoNebs as needed. Chronic medical conditions: ? CKD stage IV: Creatinine 2.6 on admit, baseline creatinine 2.5-3.0. Stable. ? Chronic thrombocytopenia: Platelets 107 on admit, baseline platelets 100-130. Stable. ? HFpEF, hypertension, hyperlipidemia, CAD: Appears mildly dry to euvolemic on exam on admit. BP with fairly wide pulse pressure, systolic values in 130s to 140s. Hold home Lasix and lisinopril for now. Continue home statin. DVT prophylaxis: SCDs CODE STATUS: DNR CCA, DO NOT INTUBATE Expected disposition: Home, 2 to 3 days Total clinical time spent by myself addressing the patient's medical issues, reviewing all the data, and collaborating with patient's care team: 55 minutes. Charges/Coding Visit Charges Inpatient E&M: 04126 Init Hosp L2
[2023-03-07] MEDS: Sucralfate 1 GM Tablet PO (22:42)
[2023-03-07] MEDS: Pantoprazole Sodium 40 MG in 0.9% Normal Saline (100mL MB+) 100 ML 330 MG IV (22:42)
--- NOTE | 2023-03-07 23:50 | CON.PCM.GI_ITS ---
HPI Consult Data Date of Consult: 03/07/23 HPI Narrative Reason for Consultation: GI bleed/anemia HPI Narrative: BEULAH BRIGHT, is a 82-year-old patient with COPD presents by EMS for shortness of breath got worse today. He states he has been resting today and not doing anything in particular other than walking around the house, he thinks the context of this worsening see may be to be conversation. There was no other obvious trigger for this getting worse but it was not sudden. Denies any chest discomfort. Denies any worsening edema in his legs. He has been on Lasix and compliant with that but he is on another diuretic becau se he states he has issues with his kidneys. He started having a cough and runny diarrhea today. In March 2022 for non-ST elevated myocardial infarction, acute congestive heart failure, hypertension, and hyperlipidemia. He had an echocardiogram that showed ejection fraction of 65%, mild concentric LVH, and mild aortic valve stenosis. He underwent a heart catheterization on 03/15/2022 that showed left main with 25% stenosis, LAD with mild luminal irregularities, diagonal 1 with 50% stenosis, LCx with mild luminal irregularities, and RCA with mild luminal irregularities. Medical therapy was recommended. He was diuresed and discharged home. He returned to the Emergency Department wi th ongoing shortness of breath. He was admitted and diuresed. He also has a past medical history of COPD, diabetes mellitus type 2, and hypothyroidism. Vitals in the ED were temp of 98.1F, DE of 99, BP of 132/64, RR of 22 and he was saturating at 97% on 2L of oxygen. CBC shwoed hb of 6.4, wbc of 5.7, platelets of 124; chemistry showed sodium of 139, potassium of 5.1, Cr of 2.91 and BNP was only 50.7. COVID test was negative and CXR showed no acute cardiopulmonary process. He denied any recent history of dark stools, and is on aspirin. He has no history of over the counter pain meds. I saw him previously couple months ago for acute blood loss anemia. 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 [facility] Medical History Acute and chronic respiratory failure with hypoxia Aortic valve stenosis, acquired Atherosclerotic heart disease of belk[place]ski coronary artery without angina pectoris CAD (coronary artery disease) Chronic respiratory failure with hypoxia COPD (chronic obstructive pulmonary disease) Diabetes Diabetes mellitus, type 2 Diastolic CHF Former smoker Former tobacco use History of CAD (coronary artery disease) History of left heart catheterization (LHC) (~03/15/22) HLD (hyperlipidemia) HTN (hypertension) Hypertension Hypothyroidism Kidney disease Mild left ventricular hypertrophy Myocardial infarct Nonrheumatic aortic (valve) stenosis Obesity On home oxygen therapy Polyarthralgia TIA (transient ischemic attack) Home Medications atorvastatin 80 mg tablet 80 mg PO DAILY CHOLESTEROL 05/02/21 [History Last Taken 02/14/23] cholecalciferol (vitamin D3) 25 mcg (1,000 unit) capsule 25 mcg PO DAILY vitamin 05/02/21 [History Last Taken 02/15/23] ipratropium 0.5 mg-albuterol 3 mg (2.5 mg base)/3 mL nebulization soln 3 ml inhalation 4X/DAY PRN sob 05/02/21 [History Last Taken 02/15/23] liothyronine 25 mcg tablet 25 mcg PO DAILY THYROID 05/02/21 [History Last Taken 02/15/23] omega-3 fatty acids-vitamin E 1,000 mg capsule 2 cap PO BID SUPPLEMENT 05/02/21 [History Last Taken 02/15/23] tiotropium bromide 18 mcg capsule with inhalation device (Spiriva with HandiHaler) 18 mcg inhalation DAILY SOB 05/02/21 [History Last Taken 02/15/23] vitamins A,C,S-tsew-fvnjkf 4,296 mcg-226 mg-90 mg capsule (PreserVision AREDS) 1 cap PO BID vitamin 12/13/21 [History Last Taken 02/15/23] lisinopril 20 mg tablet (Zestril) 10 mg PO DAILY blood pressure 03/12/22 [History Last Taken 02/15/23] glimepiride 2 mg tablet 2 mg PO DAILY DM 05/24/22 [History Last Taken 02/15/23] furosemide 40 mg tablet (Lasix) 40 mg PO DAILY diuretic #90 tabs 07/06/22 [Rx Last Taken 02/15/23] empagliflozin 25 mg tablet (Jardiance) 10 mg PO DAILY dm 11/16/22 [History Last Taken 02/15/23] pantoprazole 40 mg tablet,delayed release (Protonix) 40 mg PO BID 12 weeks #168 tabs 11/18/22 [Rx Last Taken 02/15/23] sucralfate 1 gram tablet 1 g PO Q6H 8 weeks #224 tabs 11/18/22 [Rx Last Taken 02/15/23] Allergy/AdvReac Type Severity Reaction Status Date / Time codeine AdvReac Upset Verified 03/07/23 18:27 Stomach Family History Mother CVA (cerebral vascular accident) Heart disease Myocardial infarction Hx of CABG Hypertension Father CVA (cerebral vascular accident) Heart disease Surgical History S/P cataract extraction Social History household members: none housing: house Smoking Status: Former smoker how long ago did patient quit smoking: Quit 2010, prior 1 ppd since teen. alcohol intake: former year quit: 2010 substance use type: does not use ROS Constitutional Constitutional: Denies chills, fatigue, fever(s) or weakness Eyes Eyes: Denies change in vision Cardiovascular Cardiovascular: Reports dyspnea on exertion; Denies chest pain, edema, lightheadedness, palpitations or rapid heart rate Respiratory/Chest Respiratory/Chest: Denies cough, shortness of breath at rest or wheezing Gastrointestinal Gastrointestinal: Reports melena; Denies abdominal pain, constipation, diarrhea, nausea or vomiting Genitourinary Genitourinary: Denies dysuria Musculoskeletal Musculoskeletal: Denies arthralgias or back pain Neurologic Neurologic: Denies dizziness, focal weakness or headache(s) Physical Exam Narrative Seen and examined. Patient admitted with loose watery stool with dark color for 2 to 3 days. Denies nausea or vomiting. Dyspnea on exertion. Patient had endoscopy/EGD recently. Denies abdominal pain Physical exam General: Alert, Oriented x3, Cooperative HEENT: Atraumatic, PERRLA, EOMI, Normocephalic Oral: No Gingival or Mucosal Lesions/ Ulcerations Neck: Supple, No JVD, Negative Carotid Bruits Lungs: Air entry diminished in bilateral lung bases. No crepitation/rhonchi. Mild dyspnea on exertion Cardiovascular: Regular rate, Regular Rhythm, Normal S1, Normal S2, No murmurs Abdomen: Bowel Sounds Present, Soft, Non Tender, Non-Distended : No renal angle tenderness. No suprapubic tenderness. Extremities: No edema, Capillary Refill Less than 3 Seconds Skin: No rashes, No breakdown Musculoskeletal: No Tenderness to Palpation of Joints or Extremities Neurological: Cranial nerves II-XII grossly intact, DTR 2+/4. No acute focal neurological deficit. Psych/Mental Status: Flat affect. Lab / Micro Data 03/08/23 05:30 03/07/23 18:23 Labs: Laboratory Results - last 24 hr 03/07/23 18:23: WBC 4.0 L, RBC 2.70 L, Hgb 7.5 L, Hct 24.5 L, MCV 90.7, MCH 27.8, MCHC 30.6 L, RDW Std Deviation 55.5 H, RDW Coeff of John 17.1 H, Plt Count 107 L, MPV 11.9, Immature Gran % (Auto) 0.200, Neut % (Auto) 63.7, Lymph % (Auto) 25.2, [place] % (Auto) 8.2, Eos % (Auto) 2.5, Baso % (Auto) 0.2, Absolute Neuts (auto) 2.6, Absolute Lymphs (auto) 1.02, Nucleated RBC % 0, Sodium 143, Potassium 4.2, Chloride 107, Carbon Dioxide 29.0, Anion Gap 7, BUN 77 H, Creatinine 2.67 H, Estim Creat Clear Calc 18.24, Est GFR (MDRD) Af Amer 30 L, Est GFR (MDRD) Non-Af 24 L, BUN/Creatinine Ratio 28.8 H, Glucose 223 H, Calcium 9.1, Troponin I High Sens 34, B-Natriuretic Peptide 78.3 03/07/23 21:08: Blood Type A NEGATIVE, Antibody Screen NEGATIVE, Crossmatch See Detail 03/08/23 05:30: WBC 3.9 L, RBC 3.02 L, Hgb 8.2 L, Hct 26.5 L, MCV 87.7, MCH 27.2, MCHC 30.9 L, RDW Std Deviation 54.2 H, RDW Coeff of John 17.2 H, Plt Count 80 L, MPV 10.9, Differential Comment SCANNED Micro: Microbiology 03/07/23 19:50 Stool Stool Occult Blood (CLARY) - Final Occult Blood Positive 03/07/23 18:51 Nasal Secretion SARS-CoV-2 & FLU Antigen (Rapid) - Final Rhythm Strip Rhythm Strip: Sinus Tach Rate: 104 Ectopy: None Imagaing Radiology Impression Chest X-Ray 03/07/23 19:26 IMPRESSION: Poor inspiration with some bibasilar atelectasis. Electronically Signed: Dennis Garcia MD at 19:54 EST , Assessment & Plan Assessment/Plan (1) Anemia: QUALIFIERS: Anemia type: iron deficiency Iron deficiency anemia type: other iron deficiency Qualified Code(s): D50.8 - Other iron deficiency anemias (2) GI bleed: QUALIFIERS: GI bleed type/associated pathology: unspecified gastrointestinal hemorrhage type Qualified Code(s): K92.2 - Gastrointestinal hemorrhage, unspecified PLAN: Plan 82-year-old with past medical history of CHF, CAD status post non-ST segment elevation MO on medical therapy, COPD on oxygen who arrives here today with worsening shortness of breath and discomfort in the anemic to hemoglobin of 7.2. He was transfused 2 units of packed red blood cell in the past. Likely upper GI bleed greater than lower GI bleed. He will need to undergo an upper endoscopy and if negative he will need a colonoscopy. He was explained alternatives, risk, benefits including outstanding bleeding, infection, sepsis, perforation, need for emergent surgery . He will have an ASA of 3. Charges/Coding Visit Charges Inpatient E&M: 06677 Init Hosp L3
[2023-03-08] VITALS (17 sets, daily range): BP systolic 105–153; BP diastolic 41–63; PULSE 85–98; RESP 16–22; TEMP 35.3–36.9; O2SAT 93–100
[2023-03-08] MEDS: Ipratropium/Albuterol Sulfate 3 ML AMPUL.NEB INHALATION (03:20)
[2023-03-08] MEDS: Sucralfate 1 GM Tablet PO ×4 (05:57→21:50)
[2023-03-08] MEDS: Liothyronine 5 MCG Tablet 25 MCG PO (05:57)
[2023-03-08 06:04] LABS: Hematocrit 26.5 % (40-54); Hemoglobin 8.2 g/dL (13.0-16.5); Mean Corp Hgb Conc 30.9 g/dL (32-36); Mean Corpuscular Hgb 27.2 pg (27.0-32.0); Mean Corpuscular Volume 87.7 fL (80-94); Mean Platelet Vol. 10.9 fl (6.2-12.0); POSITIVE COUNT YES; Platelet Count 80 K/mm3 (150-450); RBC Distribution Width CV 17.2 % (11.6-14.6); RBC Distribution Width SD 54.2 fl (35.1-43.9); Red Blood Count 3.02 M/mm3 (4.6-6.2); White Blood Count 3.9 K/mm3 (4.4-11.0)
[2023-03-08 06:38] LABS: Scan Indicated on CBC? Y/N YES- FLAGS NOTED
[2023-03-08] MEDS: Ipratropium 0.5 MG/2.5 ML SOLUTION INHALATION ×3 (06:59→21:28)
--- NOTE | 2023-03-08 08:24 | PCM.PN.HOSP ---
Reason for Visit Reason for Visit: Diagnoses Acute posthemorrhagic anemia (03/07/23) Gastrointestinal hemorrhage, unspecified (03/07/23) Objective Data Objective Data Vital Signs: Vital Signs Temp Pulse Resp BP Pulse Ox O2 Del Method O2 Flow Rate 98.1 F 91 18 153/57 H 98 Nasal Cannula 2 03/08/23 02:25 03/08/23 07:01 03/08/23 07:01 03/08/23 02:25 03/08/23 07:01 03/08/23 07:01 03/08/23 07:01 Oxygen Flow Rate (L/min) 2 Oxygen Delivery Method Nasal Cannula Weight: 186 lb 15.232 oz Body Mass Index (BMI) 31.1 Intake & Output: Intake and Output for Last 24 Hours 03/06/23 03/07/23 03/08/23 23:59 23:59 23:59 Intake Total 110 / 110 2 / 2 Output Total 750 / 750 Balance 110 / -340 -748 / -748 Lab / Micro Data 03/08/23 05:30 03/07/23 18:23 Labs: Laboratory Results - last 24 hr 03/07/23 18:23: WBC 4.0 L, RBC 2.70 L, Hgb 7.5 L, Hct 24.5 L, MCV 90.7, MCH 27.8, MCHC 30.6 L, RDW Std Deviation 55.5 H, RDW Coeff of John 17.1 H, Plt Count 107 L, MPV 11.9, Immature Gran % (Auto) 0.200, Neut % (Auto) 63.7, Lymph % (Auto) 25.2, [place] % (Auto) 8.2, Eos % (Auto) 2.5, Baso % (Auto) 0.2, Absolute Neuts (auto) 2.6, Absolute Lymphs (auto) 1.02, Nucleated RBC % 0, Sodium 143, Potassium 4.2, Chloride 107, Carbon Dioxide 29.0, Anion Gap 7, BUN 77 H, Creatinine 2.67 H, Estim Creat Clear Calc 18.24, Est GFR (MDRD) Af Amer 30 L, Est GFR (MDRD) Non-Af 24 L, BUN/Creatinine Ratio 28.8 H, Glucose 223 H, Calcium 9.1, Troponin I High Sens 34, B-Natriuretic Peptide 78.3 03/07/23 21:08: Blood Type A NEGATIVE, Antibody Screen NEGATIVE, Crossmatch See Detail 03/08/23 05:30: WBC 3.9 L, RBC 3.02 L, Hgb 8.2 L, Hct 26.5 L, MCV 87.7, MCH 27.2, MCHC 30.9 L, RDW Std Deviation 54.2 H, RDW Coeff of John 17.2 H, Plt Count 80 L, MPV 10.9 Micro: Microbiology 03/07/23 19:50 Stool Stool Occult Blood (CLARY) - Final Occult Blood Positive 03/07/23 18:51 Nasal Secretion SARS-CoV-2 & FLU Antigen (Rapid) - Final Radiography Diagnostic Testing: Radiology Impression Chest X-Ray 03/07/23 19:26 IMPRESSION: Poor inspiration with some bibasilar atelectasis. Electronically Signed: Dennis Garcia MD at 19:54 EST Reading Location ID and State: [facility] / [place] Tel , Service support , Rhythm Strip Rhythm Strip: Sinus Tach Rate: 104 Ectopy: None Physical Exam Narrative Seen and examined. Patient admitted with loose watery stool with dark color for 2 to 3 days. Denies nausea or vomiting. Dyspnea on exertion. Patient had endoscopy/EGD recently. Denies abdominal pain Physical exam General: Alert, Oriented x3, Cooperative HEENT: Atraumatic, PERRLA, EOMI, Normocephalic Oral: No Gingival or Mucosal Lesions/ Ulcerations Neck: Supple, No JVD, Negative Carotid Bruits Lungs: Air entry diminished in bilateral lung bases. No crepitation/rhonchi. Mild dyspnea on exertion Cardiovascular: Regular rate, Regular Rhythm, Normal S1, Normal S2, No murmurs Abdomen: Bowel Sounds Present, Soft, Non Tender, Non-Distended : No renal angle tenderness. No suprapubic tenderness. Extremities: No edema, Capillary Refill Less than 3 Seconds Skin: No rashes, No breakdown Musculoskeletal: No Tenderness to Palpation of Joints or Extremities Neurological: Cranial nerves II-XII grossly intact, DTR 2+/4. No acute focal neurological deficit. Psych/Mental Status: Flat affect. Assessment & Plan Assessment/Plan (1) Acute on chronic blood loss anemia: (2) Acute upper gastrointestinal bleeding: PLAN: Plan Patient is an 82-year-old male who presented to [facility] ED on 03/07/2023 with worsening shortness of breath on exertion and intermittent dark stools. 1. Acute on chronic anemia, suspected recurrent upper GI bleed Follows with Dr. Joy, last office visit on 02/21/23. Previous EGD on 11/17/2022 shows bleeding AVM of the stomach which was treated with heater probe, Many nonbleeding superficial gastric ulcers, many nonbleeding duodenal ulcers H. pylori negative. GI consulted. Hemoglobin slight drop from 7.9 on 02/15 to 7.5 on 03/07. Stool occult blood positive in ED. most recently 8.2. Platelet count 80,000. Mild leukopenia. Plan for EGD today. On IV PPI. Stool studies for enteric bacteriology panel, C. difficile and Giardia ordered. 2. Type 2 diabetes mellitus with hyperglycemia ? BG 223 on admit. Home regimen of glimepiride 2 mg daily, Jardiance 10 mg daily. Last A1c 7.6% in 2017, Accu-Chek ACHS cover with Humalog sliding scale. 3. COPD with chronic respiratory failure on 2 L NC at home ? Satting in mid to high 90s on home 2 L nasal cannula at rest. Does not appear to be in acute exacerbation. Continue home Spiriva, DuoNebs as needed. Chronic medical conditions: ? CKD stage IV: Creatinine 2.6 on admit, baseline creatinine 2.5-3.0. Stable. ? Chronic thrombocytopenia: Platelets 107 on admit, baseline platelets 100-130. Stable. ? HFpEF, hypertension, hyperlipidemia, CAD: Appears mildly dry to euvolemic on exam on admit. BP with fairly wide pulse pressure, systolic values in 130s to 140s. Hold home Lasix and lisinopril for now. Continue home statin. DVT prophylaxis: SCDs CODE STATUS: DNR CCA, DO NOT INTUBATE Microbiology Past 72 Hours 03/07/23 19:50 Stool Stool Occult Blood (CLARY) - Final Occult Blood Positive 03/07/23 18:51 Nasal Secretion SARS-CoV-2 & FLU Antigen (Rapid) - Final Laboratory Results 03/07/23 18:23: WBC 4.0 L, RBC 2.70 L, Hgb 7.5 L, Hct 24.5 L, MCV 90.7, MCH 27.8, MCHC 30.6 L, RDW Std Deviation 55.5 H, RDW Coeff of John 17.1 H, Plt Count 107 L, MPV 11.9, Immature Gran % (Auto) 0.200, Neut % (Auto) 63.7, Lymph % (Auto) 25.2, [place] % (Auto) 8.2, Eos % (Auto) 2.5, Baso % (Auto) 0.2, Absolute Neuts (auto) 2.6, Absolute Lymphs (auto) 1.02, Nucleated RBC % 0, Sodium 143, Potassium 4.2, Chloride 107, Carbon Dioxide 29.0, Anion Gap 7, BUN 77 H, Creatinine 2.67 H, Estim Creat Clear Calc 18.24, Est GFR (MDRD) Af Amer 30 L, Est GFR (MDRD) Non-Af 24 L, BUN/Creatinine Ratio 28.8 H, Glucose 223 H, Calcium 9.1, Troponin I High Sens 34, B-Natriuretic Peptide 78.3 03/07/23 21:08: Blood Type A NEGATIVE, Antibody Screen NEGATIVE, Crossmatch See Detail 03/08/23 05:30: WBC 3.9 L, RBC 3.02 L, Hgb 8.2 L, Hct 26.5 L, MCV 87.7, MCH 27.2, MCHC 30.9 L, RDW Std Deviation 54.2 H, RDW Coeff of John 17.2 H, Plt Count 80 L, MPV 10.9, Differential Comment SCANNED Charges/Coding Visit Charges Inpatient E&M: 83389 Subs Hosp L2
[2023-03-08 08:55] LABS: Differential Comment SCANNED
[2023-03-08] MEDS: Pantoprazole Sodium 40 MG in 0.9% Normal Saline (100mL MB+) 100 ML 330 MG IV ×2 (09:27→21:50)
[2023-03-08] MEDS: Lactated Ringers 1,000 ML 15 ML IV (15:52)
--- NOTE | 2023-03-08 16:00 | EGD_PTH ---
PATHOLOGY RESULTS PATIENT: BEULAH BRIGHT LOC: [facility] U#:[id number] AGE/SX: 82/M ROOM: [facility] RE03/07/[address]: Dr. Fred Ramos MD : 1940 BED: 1 DIS: 03/09/2023 SPEC #: [id number] RECD: 03/09/23 06:55 STATUS: CHRISTIANO DICKEY #: [id number] BUZZ: 03/08/23 16:[address]: Fredy Joy DEPT: SURGICAL PATHOLOGY RECD BY: Patricia Chacon ENTERED: 03/09/23 06:55 SP TYPE: EGD BIOPSY OTHR DR: Dr. Romario Blancas, DO Dr. Adrianna Nichols, DO Dr. Fred Ramos MD Tissues: Duodenum, NOS Gastric mucous membrane Procedures: Surgery Specimen Level IV Comments: @ Ordering doctor for SHAYNA edited from to @ by CELINA at 03/09/23 1141 @ Submitting doctor edited from to @ by MIRNAOD at 03/09/23 1141 HEADER OPERATION: EGD PRE-OP DIAGNOSIS: Acute on chronic blood loss anemia, acute upper GI bleeding TISSUE SUBMITTED: A - Duodenum biopsy, B - Lesser curvature biopsy MICROSCOPIC DIAGNOSIS A. Duodenum, biopsy: Gastric metaplasia. Mild nonspecific chronic inflammation. B. Lesser curvature of stomach, biopsy: Minimal chronic inflammation. AM:richard 03/13/2023 COMMENT B. The results of immunohistochemistry for Helicobacter pylori will be reported separately ([id number]). MICROSCOPIC DESCRIPTION Slides are reviewed. GROSS DESCRIPTION A - Received in fixative is one container labeled with the patient's name and designated duodenum biopsy. The specimen consists of two irregular fragments of light atkins soft tissue that in aggregate measure 0.8 x 0.4 x 0.1 cm. The specimen is totally submitted in one cassette. B - Received in fixative is one container labeled with the patient's name and designated lesser curvature biopsy. The specimen consists of one irregular fragment of light atkins soft tissue that measures 0.3 x 0.3 x 0.1 cm. The specimen is totally submitted in one cassette. / IRIS:richard 03/09/2023 TC:3 CPT: 63730 x2
--- NOTE | 2023-03-08 16:00 | IMM_PTH ---
PATHOLOGY RESULTS PATIENT: BEULAH BRIGHT LOC: [facility] U#:[id number] AGE/SX: 82/M ROOM: [facility] RE03/07/[address]: Dr. Fred Ramos MD : 1940 BED: 1 DIS: 03/09/2023 SPEC #: [id number] RECD: 03/09/23 11:41 STATUS: CHRISTIANO REPilar #: [id number] BUZZ: 03/08/23 16:[address]: Fredy Joy DEPT: IMMUNOHISTOCHEMISTRY RECD BY: Alia Aguilera ENTERED: 03/09/23 11:42 SP TYPE: IMMUNO OTHR DR: Dr. Romario Blancas, DO Dr. Adrianna Nichols, DO Dr. Fred Ramos MD Tissues: Colon, NOS Procedures: H Pylori (initial) PHYSICIAN & INSTITUTION [place] [id number] SPECIMEN INFORMATION: Tissue Source: B - Lesser curvature Clinical Info: Acute on chronic blood loss anemia; acute upper GI bleeding Specimen Number: [id number] CPT code: 36077 METHODOLOGY: Deparaffinized sections of prefer/formalin-fixed tissue or PAP/DQ stained slides are incubated with monoclonal/polyclonal antibodies/oligonucleotide probes. Localization is made via biotin free immunoperoxidase method. Appropriate controls are performed and reacted as expected. Results on target cell population are indicated in the following table: RESULTS: ANTIBODY / CLONE RESULT Block B H Pylori (polyclonal) negative These tests were developed and their performance characteristics determined by [facility]. They may not have been cleared or approved by the U.S. Food and Drug Administration. The FDA has determined that such clearance or approval is not necessary. The above immunohistochemical/dualISH markers are ordered and reviewed by the Pathologist. INTERPRETATION: Lyla Lesser curvature, biopsy: Negative for Helicobacter pylori organisms. AM:richard 03/13/2023
--- NOTE | 2023-03-08 16:53 | OP.EGD_ITS ---
Patient Name: Corona West Procedure Date: 03/08/2023 4:26 PM Date of : 1940 Age: 82 Procedure: Upper GI endoscopy Indications: Iron deficiency anemia, Melena Providers: Fredy Joy DO Medicines: Monitored Anesthesia Care Patient Profile: This is an 82 year old male. Refer to note in patient chart for documentation of history and physical. Patient has symptoms of acute abdominal cramping and acute epigastric abdominal pain. Complications: No immediate complications. Procedure: Pre-Anesthesia Assessment: - Prior to the procedure, a History and Physical was performed, and patient medications and allergies were reviewed. The patient is competent. The risks and benefits of the procedure and the sedation options and risks were discussed with the patient. All questions were answered and informed consent was obtained. Patient identification and proposed procedure were verified by the physician in the pre-procedure area. Mental Status Examination: alert and oriented. Airway Examination: normal oropharyngeal airway and neck mobility. Respiratory Examination: clear to auscultation. CV Examination: normal. Prophylactic Antibiotics: The patient does not require prophylactic antibiotics. Prior Anticoagulants: The patient has taken no anticoagulant or antiplatelet agents. ASA Grade Assessment: II - A patient with mild systemic disease. After reviewing the risks and benefits, the patient was deemed in satisfactory condition to undergo the procedure. The anesthesia plan was to use monitored anesthesia care (MAC). Immediately prior to administration of medications, the patient was re-assessed for adequacy to receive sedatives. The heart rate, respiratory rate, oxygen saturations, blood pressure, adequacy of pulmonary ventilation, and response to care were monitored throughout the procedure. The physical status of the patient was re-assessed after the procedure. After obtaining informed consent, the endoscope was passed under direct vision. Throughout the procedure, the patient's blood pressure, pulse, and oxygen saturations were monitored continuously. The Endoscope was introduced through the mouth, and advanced to the second part of duodenum. The upper GI endoscopy was accomplished without difficulty. The patient tolerated the procedure well. Scope In: 4:35:56 PM Scope Out: 4:42:14 PM Total Procedure Duration Time 0 hours 6 minutes 18 seconds Findings: Mena's esophagus was present in the lower third of the esophagus. A small hiatal hernia was present. Two oozing linear gastric ulcers with pigmented material were found on the lesser curvature of the stomach. The largest lesion was 5 mm in largest dimension. Area was successfully injected with 5 mL of a 0.1 mg/mL solution of epinephrine for drug delivery. Coagulation for hemostasis using heater probe was successful. Estimated blood loss was minimal. Localized mild inflammation characterized by erosions and erythema was found in the gastric body. Biopsies were taken with a cold forceps for histology. Verification of patient identification for the specimen was done. Estimated blood loss was minimal. Biopsies were taken with a cold forceps for Helicobacter pylori testing. Verification of patient identification for the specimen was done. Estimated blood loss was minimal. Localized mild inflammation characterized by erosions and erythema was found in the duodenal bulb. Biopsies were taken with a cold forceps for histology. Verification of patient identification for the specimen was done. Estimated blood loss was minimal. Impression: - Mena's esophagus. - Small hiatal hernia. - Oozing gastric ulcers with pigmented material. Injected. Treated with a heater probe. - Gastritis. Biopsied. - Duodenitis. Biopsied. Recommendation: - [facility]. - Use sucralfate tablets 1 gram PO QID. - Continue present medications. Procedure Code(s): --- Professional --- 74342, 59, Esophagogastroduodenoscopy, flexible, transoral; with control of bleeding, any method 01061, Esophagogastroduodenoscopy, flexible, transoral; with biopsy, single or multiple 48445, 59, Esophagogastroduodenoscopy, flexible, transoral; with directed submucosal injection(s), any substance CPT copyright 2021 [employer]. All rights reserved. The codes documented in this report are preliminary and upon bag machine operator helper review may be revised to meet current compliance requirements. Fredy Joy DO 03/08/2023 4:52:51 PM This report has been signed electronically. Number of Addenda: 0 Note Initiated On: 03/08/2023 4:26 PM
--- NOTE | 2023-03-08 16:53 | OP.CCLET_ITS ---
03/08/2023 Adrianna Berrios Do Re : Upper GI endoscopy procedure for [place] Agustina This procedure was performed on February. My impressions and recommendations are as follows: Impressions : - Mena's esophagus. - Small hiatal hernia. - Oozing gastric ulcers with pigmented material. Injected. Treated with a heater probe. - Gastritis. Biopsied. - Duodenitis. Biopsied. Recommendations : - [facility] - Use sucralfate tablets 1 gram PO QID. - Continue present medications. My findings are described in the full procedure note, which is enclosed. If I can be of further assistance, please feel free to contact me at . Sincerely, Fredy Joy, 03/08/2023 4:52:51 PM This report has been signed electronically.
[2023-03-08 17:37] LABS: Bedside Glucose 128 mg/dL (74-106)
--- NOTE | 2023-03-08 18:30 | CASEMGMT ---
ALMA RINALDI readmission note: Index admission: Admitted 02/13/23 w/near syncope, GUZMAN, and leukocytosis. See ALMA Gayle CM assess and notes 02/14. Pt lives alone and primary support person is his step-dtr, Katie. She reported she checks on pt every couple of days and so does her daughter. HHC was discussed at that time and Katie reported pt was close to his baseline. Pt discharged home 02/15/23. Current admission: Pt admitted 03/07/23 w/A on C anemia and GIB. ALMA RINALDI to room. Pt resting in bed. Awake/alert/oriented. ALMA RINALDI introduced self and role. Pt states he has been taking his medications as prescribed. He states he was in to see PCP Adrianna Nichols last week. He reports HHC has been set up by Dr Nichols and nursing and therapy have started coming to his home. He states he is not sure of the name of the agency, but he would like to resume with them @ discharge and denies wanting list of other HHC options. He states he is supposed to be getting an US of his kidneys done soon. He is awaiting a call back from nephrology office re: same. He states he wears oxygen @ 2l/m from [place]. He has a concentrator and Inogen that is in his room for him to go home on. He states he has been taking his medications as prescribed, denies needing any DME, and denies having any further discharge planning needs. Plan: Home w/resumption of HHC Follow for any increase in oxygen needs @ discharge. Amanda ALEMAN RN, CM
[2023-03-08] MEDS: Insulin Glargine-YFGN 100 UNIT/ML Pen 10 UNIT SC (21:50)
[2023-03-08] MEDS: Atorvastatin Calcium 80 MG Tablet PO (21:50)
[2023-03-08] MEDS: 0.9% Saline Lock 10 ML Syringe IV (21:52)
[2023-03-08] MEDS: Insulin Lispro 100 UNIT/ML INSULN.PEN SC (21:57)
[2023-03-09 00:15] LABS: Bedside Glucose 194 mg/dL (74-106)
[2023-03-09 03:46] VITALS: BP 137/97; PULSE 95; RESP 18; TEMP 36.5; O2SAT 97
[2023-03-09] MEDS: Sucralfate 1 GM Tablet PO ×3 (06:11→16:46)
[2023-03-09] MEDS: Liothyronine 5 MCG Tablet 25 MCG PO (06:14)
[2023-03-09 06:30] LABS: Bedside Glucose 116 mg/dL (74-106)
[2023-03-09 07:18] LABS: Absolute Lymphocyte Count 1.07 X10^3/uL (0.83-4.51); Absolute Neutrophil Count 2.4 X10^3/uL (2.0-7.7); Basophil# 0.02 X10^3/uL; Basophil% 0.5 % (0-1); Eosinophil# 0.24 X10^3/uL; Eosinophils% 5.8 % (0-5); Hematocrit 30.2 % (40-54); Hemoglobin 9.3 g/dL (13.0-16.5); Lymphocyte # 1.07 X10^3/ul (0.83-4.51); Lymphocyte % 25.7 % (19-41); Mean Corp Hgb Conc 30.8 g/dL (32-36); Mean Corpuscular Volume 87.8 fL (80-94); Mean Platelet Vol. 11.1 fl (6.2-12.0); Monocyte# 0.41 X10^3/uL; Monocyte% 9.8 % (0-10); NRBC Flagged by Analyzer 0 % (0-5); Neutrophil # 2.41 X10^3/uL (2.7-7.7); Neutrophil % 57.7 % (47-70); Platelet Count 108 K/mm3 (150-450); RBC Distribution Width CV 17.4 % (11.6-14.6); RBC Distribution Width SD 55.2 fl (35.1-43.9); Red Blood Count 3.44 M/mm3 (4.6-6.2); White Blood Count 4.2 K/mm3 (4.4-11.0)
[2023-03-09 07:59] LABS: Anion Gap 5 (5-15); BUN 50 mg/dL (7-18); BUN/Creat Ratio 26.2 RATIO (10-20); Calcium,Total 9.5 mg/dL (8.5-10.1); Chloride 110 mmol/L (98-107); Creatinine, Serum 1.91 mg/dL (0.70-1.30); EST Glomerular Filtration Rate 36 mL/min (>60); Est Glom Filt Rate - Afr Amer 43 mL/min (>60); Estimated Creatinine Clearance 25.49 ml/min; Glucose 123 mg/dL (74-106); Potassium 4.3 mmol/L (3.5-5.1); Sodium Level 143 mmol/L (136-145)
[2023-03-09 08:00] VITALS: O2SAT 97
--- NOTE | 2023-03-09 09:14 | PN.HOSP_ITS ---
Reason for Visit Reason for Visit: Diagnoses Other iron deficiency anemias (03/07/23) Acute posthemorrhagic anemia (03/07/23) Gastrointestinal hemorrhage, unspecified (03/07/23) Objective Data Objective Data Vital Signs: Vital Signs Temp Pulse Resp BP Pulse Ox O2 Del Method O2 Flow Rate 97.7 F L 95 18 137/97 H 97 Nasal Cannula 2 03/09/23 03:46 03/09/23 03:46 03/09/23 03:46 03/09/23 03:46 03/09/23 08:00 03/09/23 08:00 03/09/23 08:00 Oxygen Flow Rate (L/min) 2 Oxygen Delivery Method Nasal Cannula Weight: 186 lb 15.232 oz Body Mass Index (BMI) 31.1 Intake & Output: Intake and Output for Last 24 Hours 03/07/23 03/08/23 03/09/23 23:59 23:59 23:59 Intake Total 110 / 110 429.25 / 429.25 Output Total 1450 / 1450 400 / 400 Balance 110 / -340 -1020.75 / -1020.75 -400 / -400 Lab / Micro Data 03/09/23 06:33 03/09/23 06:33 Labs: Laboratory Results - last 24 hr 03/08/23 17:18: POC Glucose 128 H 03/08/23 21:35: POC Glucose 194 H 03/09/23 06:09: POC Glucose 116 H 03/09/23 06:33: WBC 4.2 L, RBC 3.44 L, Hgb 9.3 L, Hct 30.2 L, MCV 87.8, MCH 27.0, MCHC 30.8 L, RDW Std Deviation 55.2 H, RDW Coeff of John 17.4 H, Plt Count 108 L, MPV 11.1, Immature Gran % (Auto) 0.500, Neut % (Auto) 57.7, Lymph % (Auto) 25.7, Irion % (Auto) 9.8, Eos % (Auto) 5.8 H, Baso % (Auto) 0.5, Absolute Neuts (auto) 2.4, Absolute Lymphs (auto) 1.07, Nucleated RBC % 0, Sodium 143, Potassium 4.3, Chloride 110 H, Carbon Dioxide 28.0, Anion Gap 5, BUN 50 H, Creatinine 1.91 H, Estim Creat Clear Calc 25.49, Est GFR (MDRD) Af Amer 43 L, Est GFR (MDRD) Non-Af 36 L, BUN/Creatinine Ratio 26.2 H, Glucose 123 H, Calcium 9.5 Micro: Microbiology 03/07/23 19:50 Stool Stool Occult Blood (CLARY) - Final Occult Blood Positive 03/07/23 18:51 Nasal Secretion SARS-CoV-2 & FLU Antigen (Rapid) - Final Rhythm Strip Rhythm Strip: Sinus Tach Rate: 104 Ectopy: None Physical Exam Narrative Seen and examined. Patient admitted with loose watery stool with dark color for 2 to 3 days. Norberto es nausea or vomiting. Dyspnea on exertion. Patient had endoscopy/EGD recently. Denies abdominal pain Physical exam General: Alert, Oriented x3, Cooperative HEENT: Atraumatic, PERRLA, EOMI, Normocephalic Oral: No Gingival or Mucosal Lesions/ Ulcerations Neck: Supple, No JVD, Negative Carotid Bruits Lungs: Air entry diminished in bilateral lung bases. No crepitation/rhonchi. Mild dyspnea on exertion Cardiovascular: Regular rate, Regular Rhythm, Normal S1, Normal S2, No murmurs Abdomen: Bowel Sounds Present, Soft, Non Tender, Non-Distended : No renal angle tenderness. No suprapubic tenderness. Extremities: No edema, Capillary Refill Less than 3 Seconds Skin: No rashes, No breakdown Musculoskeletal: No Tenderness to Palpation of Joints or Extremities Neurological: Cranial nerves II-XII grossly intact, DTR 2+/4. No acute focal neurological deficit. Psych/Mental Status: Flat affect. Assessment & Plan Assessment/Plan (1) Acute on chronic blood loss anemia: (2) Acute upper gastrointestinal bleeding: PLAN: Plan Patient is an 82-year-old male who presented to [facility] ED on 03/07/2023 with worsening shortness of breath on exertion and intermittent dark stools. 1. Acute on chronic anemia, suspected recurrent upper GI bleed Follows with Dr. Joy, last office visit on 02/21/23. Previous EGD on 11/17/2022 shows bleeding AVM of the stomach which was treated with heater probe, Many nonbleeding superficial gastric ulcers, many nonbleeding duodenal ulcers H. pylori negative. GI consulted. Hemoglobin slight drop from 7.9 on 12/7 to 7.5 on 03/07. Stool occult blood positive in ED. most recently 8.2. Platelet count 80,000. Mild leukopenia. Plan for EGD today. On IV PPI. Stool studies for enteric bacteriology panel, C. difficile and Giardia ordered. 2. Type 2 diabetes mellitus with hyperglycemia ? BG 223 on admit. Home regimen of glimepiride 2 mg daily, Jardiance 10 mg daily. Last A1c 7.6% in 2017, Accu-Chek ACHS cover with Humalog sliding scale. 3. COPD with chronic respiratory failure on 2 L NC at home ? Satting in mid to high 90s on home 2 L nasal cannula at rest. Does not appear to be in acute exacerbation. Continue home Spiriva, DuoNebs as needed. Chronic medical conditions: ? CKD stage IV: Creatinine 2.6 on admit, baseline creatinine 2.5-3.0. Stable. ? Chronic thrombocytopenia: Platelets 107 on admit, baseline platelets 100-130. Stable. ? HFpEF, hypertension, hyperlipidemia, CAD: Appears mildly dry to euvolemic on exam on admit. BP with fairly wide pulse pressure, systolic values in 130s to 140s. Hold home Lasix and lisinopril for now. Continue home statin. DVT prophylaxis: SCDs CODE STATUS: DNR CCA, DO NOT INTUBATE Impression: - Mena's esophagus. - Small hiatal hernia. - Oozing gastric ulcers with pigmented material. Injected. Treated with a heater probe. - Gastritis. Biopsied. - Duodenitis. Biopsied. Recommendation: - [facility]. - Use sucralfate tablets 1 gram PO QID. - Continue present medications. Microbiology Past 72 Hours 03/07/23 19:50 Stool Stool Occult Blood (CLARY) - Final Occult Blood Positive 03/07/23 18:51 Nasal Secretion SARS-CoV-2 & FLU Antigen (Rapid) - Final Laboratory Results 03/07/23 18:23: WBC 4.0 L, RBC 2.70 L, Hgb 7.5 L, Hct 24.5 L, MCV 90.7, MCH 27.8, MCHC 30.6 L, RDW Std Deviation 55.5 H, RDW Coeff of John 17.1 H, Plt Count 107 L, MPV 11.9, Immature Gran % (Auto) 0.200, Neut % (Auto) 63.7, Lymph % (Auto) 25.2, Irion % (Auto) 8.2, Eos % (Auto) 2.5, Baso % (Auto) 0.2, Absolute Neuts (auto) 2.6, Absolute Lymphs (auto) 1.02, Nucleated RBC % 0, Sodium 143, Potassium 4.2, Chloride 107, Carbon Dioxide 29.0, Anion Gap 7, BUN 77 H, Creatinine 2.67 H, Estim Creat Clear Calc 18.24, Est GFR (MDRD) Af Amer 30 L, Est GFR (MDRD) Non-Af 24 L, BUN/Creatinine Ratio 28.8 H, Glucose 223 H, Calcium 9.1, Troponin I High Sens 34, B-Natriuretic Peptide 78.3 03/07/23 21:08: Blood Type A NEGATIVE, Antibody Screen NEGATIVE, Crossmatch See Detail 03/08/23 05:30: WBC 3.9 L, RBC 3.02 L, Hgb 8.2 L, Hct 26.5 L, MCV 87.7, MCH 27.2 , MCHC 30.9 L, RDW Std Deviation 54.2 H, RDW Coeff of John 17.2 H, Plt Count 80 L , MPV 10.9, Differential Comment SCANNED
--- NOTE | 2023-03-09 09:15 | DCINST_ITS ---
Discharge Instructions Diet Discharge Diet: No restrictions Activity Discharge Activity: Return to Normal Activity Weight Bearing Status: Weight bearing as tolerated Dressing / Incision Call your doctor if you observe: Fever of 101 or Higher, Coldness, Increased Pain, Numbness or Tingling, Change in Color, Inability to urinate, Inability to have a bowel movement, Shortness of breath, Dizziness, Fainting spells, Swelling in the ankles, Chest pain, Prolonged hiccupping, Increased palpitations (irregular heartbeat) and Calf discomfort Follow Up Care When: IN 2 WEEKS Test Results: Test results from this visit will be discussed in further detail at your follow- up appointment, if applicable. Discharge Plan Admission Admit Date/Time: 03/07/23 21:18 Primary Reason for Your Visit: Acute GI bleed. Attending Provider: Fred Ramos Primary Care Provider: Adrianna Nichols Consulting Providers: Romario Blancas Discharge Orders/Prescriptions Prescriptions: Continued furosemide [Lasix] 40 mg tablet 40 mg PO DAILY Qty: 90 3RF atorvastatin 80 mg tablet 80 mg PO DAILY Patient Comments: TAKE 1 TABLET BY MOUTH ONCE DAILY ipratropium-albuterol 0.5 mg-3 mg(2.5 mg base)/3 mL solution for nebulization 3 ml inhalation 4X/DAY PRN (Reason: sob) Patient Comments: inhale contents of 1 vial ( 3 milliliters ) in nebulizer by mouth... (REFER TO PRESCRIPTION NOTES). liothyronine 25 mcg tablet 25 mcg PO DAILY Patient Comments: TAKE 1 TABLET BY MOUTH ONCE DAILY FOR 90 DAYS tiotropium bromide [Spiriva with HandiHaler] 18 mcg capsule, w/inhalation device 18 mcg INHALATION DAILY Patient Comments: INHALE THE CONTENTS OF 1 CAPSULE TWICE EACH TIME VIA HANDIHALER ONCE DAILY cholecalciferol (vitamin D3) 25 mcg (1,000 unit) Capsule 25 mcg PO DAILY omega-3 fatty acids-vitamin E 1,000 mg Capsule 2 cap PO BID PreserVision AREDS [id number] Capsule 1 cap PO BID lisinopril [Zestril] 20 mg tablet 10 mg PO DAILY Hold Instructions: Resume on 03/18/22. sucralfate 1 gram tablet 1 g PO Q6H 30 Days Qty: 120 0RF glimepiride 2 mg tablet 2 mg PO DAILY Qty: 3 0RF Patient Comments: take 1 tablet by mouth once daily WITH FIRST MEAL OF THE DAY Rx Instructions: Hold if glucose less than 130 mg/dl pantoprazole [Protonix] 40 mg tablet,delayed release (DR/EC) 40 mg PO BID 90 Days Qty: 180 0RF Held Jardiance 25 mg tablet 10 mg PO DAILY Hold Instructions: Hold for creatinine clearance less than 30 mill per minute. Referrals / Follow Up: Adrianna Nichols DO [Primary Care Provider] - Within 2 Weeks FriendFredy DO [Med Staff - Active Staff] - Within 1 Month Disposition Disposition (needs filled in before D/C Order can be placed): Home, Self Care
[2023-03-09 09:37] VITALS: BP 153/50; PULSE 97; RESP 18; TEMP 36.6; O2SAT 98
--- NOTE | 2023-03-09 10:04 | CASEMGMT ---
Addendum entered by Tamara Mckinney 03/09/23 13:53: ALMA RINALDI in to discuss discharge. RN NIMCO updated patient regarding [facility] at discharge. Patient has portable oxgen to go home with . Patient denied further needs. Original Note: Patient is active with [facility] for SN and [employer]. ALMA RINALDI called and updated [facility] that patient is discharging today. Resumption order placed and PT/OT added to order. CM will continue to follow this patient and plan for a safe discharge.
--- NOTE | 2023-03-09 12:21 | PCM.DC.SUM ---
Providers Date of Admission: 03/07/23 Date of Discharge: 03/09/23 Primary Care Physician: Dr. Adrianna Nichols, DO Consultations 03/07/23 22:12 Consult: Gastroenterology Routine Consulting Provider: [facility] Reason for Consult: Recurrent upper GI bleed EMERGENT Consult: No MD Notified: Yes Date Notified: 03/08/23 Time Notified: 05:52 Method of Notification: Text Reason For Visit: ACUTE ON CHRONIC ANEMIA, GI BLEED Diagnosis Discharge Diagnosis (1) Acute on chronic blood loss anemia: Status: Chronic Code(s): D62 - Acute posthemorrhagic anemia (2) Acute upper gastrointestinal bleeding: Status: Acute Code(s): K92.2 - Gastrointestinal hemorrhage, unspecified Plan Patient is an 82-year-old male who presented to [facility] ED on 03/07/2023 with worsening shortness of breath on exertion and intermittent dark stools. 1. Acute on chronic anemia, suspected recurrent upper GI bleed Follows with Dr. Joy, last office visit on 02/21/23. Previous EGD on 11/17/2022 shows bleeding AVM of the stomach which was treated with heater probe, Many nonbleeding superficial gastric ulcers, many nonbleeding duodenal ulcers H. pylori negative. GI consulted. Hemoglobin slight drop from 7.9 on 02/15 to 7.5 on 03/07. Stool occult blood positive in ED. most recently 8.2. Platelet count 80,000. Mild leukopenia. Plan for EGD today. On IV PPI. 03/09: Patient had EGD yesterday as described below. Patient had loose bowel movement yesterday night. Although stool studies for enteric bacteriology panel, C. difficile and Giardia were ordered is not collected but patient did not have any loose bowel movement or diarrhea since yesterday night. No abdominal pain. He wants to go home. He feels back to baseline. Patient is discharged sucralfate for 1 more month and PPI 40 mg twice daily. Follow-up in GI clinic in 1 week. Impression: - Mena's esophagus. - Small hiatal hernia. - Oozing gastric ulcers with pigmented material. Injected. Treated with a heater probe. - Gastritis. Biopsied. - Duodenitis. Biopsied. Recommendation: - Use sucralfate tablets 1 gram PO QID. - Continue present medications. 2. Type 2 diabetes mellitus with hyperglycemia ? BG 223 on admit. Home regimen of glimepiride 2 mg daily, Jardiance 10 mg daily. Last A1c 7.6% in 2017, Accu-Chek ACHS cover with Humalog sliding scale. 03/09: Jardiance is contraindicated for creatinine clearance less than 30 mill per minute therefore hold it rest continued. 3. COPD with chronic respiratory failure on 2 L NC at home ? Satting in mid to high 90s on home 2 L nasal cannula at rest. Does not appear to be in acute exacerbation. Continue home Spiriva, DuoNebs as needed. Chronic medical conditions: ? CKD stage IV: Creatinine 2.6 on admit, baseline creatinine 2.5-3.0. Stable. Patient on lisinopril for CKD stage IV therefore continued. Patient creatinine is 1.91 better than his baseline. Resume Lasix and lisinopril. ? Chronic thrombocytopenia: Platelets 107 on admit, baseline platelets 100-130. Stable. ? HFpEF, hypertension, hyperlipidemia, CAD: Appears mildly dry to euvolemic on exam on admit. BP with fairly wide pulse pressure, systolic values in 130s to 140s. Continue home statin. DVT prophylaxis: SCDs CODE STATUS: DNR CCA, DO NOT INTUBATE Medications at Discharge Home Medications atorvastatin 80 mg tablet 80 mg PO DAILY CHOLESTEROL 05/02/21 cholecalciferol (vitamin D3) 25 mcg (1,000 unit) capsule 25 mcg PO DAILY vitamin 05/02/21 ipratropium 0.5 mg-albuterol 3 mg (2.5 mg base)/3 mL nebulization soln 3 ml inhalation 4X/DAY PRN sob 05/02/21 liothyronine 25 mcg tablet 25 mcg PO DAILY THYROID 05/02/21 omega-3 fatty acids-vitamin E 1,000 mg capsule 2 cap PO BID SUPPLEMENT 05/02/21 tiotropium bromide 18 mcg capsule with inhalation device (Spiriva with HandiHaler) 18 mcg inhalation DAILY SOB 05/02/21 vitamins A,C,T-iciw-vprdoj 4,296 mcg-226 mg-90 mg capsule (PreserVision AREDS) 1 cap PO BID vitamin 12/13/21 lisinopril 20 mg tablet (Zestril) 10 mg PO DAILY blood pressure 03/12/22 furosemide 40 mg tablet (Lasix) 40 mg PO DAILY diuretic #90 tabs 07/06/22 empagliflozin 25 mg tablet (Jardiance) 10 mg PO DAILY dm 11/16/22 glimepiride 2 mg tablet 2 mg PO DAILY DM #3 tabs 03/09/23 pantoprazole 40 mg tablet,delayed release (Protonix) 40 mg PO BID 90 days #180 tabs 03/09/23 sucralfate 1 gram tablet 1 g PO Q6H 30 days #120 tabs 03/09/23 Physical Exam Narrative Seen and examined. History of COPD and heart failure and CKD stage IV. Chronic dyspnea on exertion. Diarrhea has resolved denies abdominal pain Physical exam General: Alert, Oriented x3, Cooperative HEENT: Atraumatic, PERRLA, EOMI, Normocephalic Oral: No Gingival or Mucosal Lesions/ Ulcerations Neck: Supple, No JVD, Negative Carotid Bruits Lungs: Air entry diminished in bilateral lung bases. No crepitation/rhonchi. Mild dyspnea on exertion Cardiovascular: Regular rate, Regular Rhythm, Normal S1, Normal S2, systolic murmur right second ICS and cardiac apex Abdomen: Bowel Sounds Present, Soft, Non Tender, Non-Distended : No renal angle tenderness. No suprapubic tenderness. Extremities: No edema, Capillary Refill Less than 3 Seconds Skin: No rashes, No breakdown Musculoskeletal: No Tenderness to Palpation of Joints or Extremities Neurological: Cranial nerves II-XII grossly intact, DTR 2+/4. No acute focal neurological deficit. Psych/Mental Status: Flat affect. Weight / BMI Weight Weight: 186 lb 15.232 oz Body Mass Index (BMI) 31.1 ABG / Lab / Microbiology Data 03/09/23 06:33 03/09/23 06:33 Laboratory: Laboratory Results - last 24 hr 03/08/23 17:18: POC Glucose 128 H 03/08/23 21:35: POC Glucose 194 H 03/09/23 06:09: POC Glucose 116 H 03/09/23 06:33: WBC 4.2 L, RBC 3.44 L, Hgb 9.3 L, Hct 30.2 L, MCV 87.8, MCH 27.0, MCHC 30.8 L, RDW Std Deviation 55.2 H, RDW Coeff of John 17.4 H, Plt Count 108 L, MPV 11.1, Immature Gran % (Auto) 0.500, Neut % (Auto) 57.7, Lymph % (Auto) 25.7, Stanley % (Auto) 9.8, Eos % (Auto) 5.8 H, Baso % (Auto) 0.5, Absolute Neuts (auto) 2.4, Absolute Lymphs (auto) 1.07, Nucleated RBC % 0, Sodium 143, Potassium 4.3, Chloride 110 H, Carbon Dioxide 28.0, Anion Gap 5, BUN 50 H, Creatinine 1.91 H, Estim Creat Clear Calc 25.49, Est GFR (MDRD) Af Amer 43 L, Est GFR (MDRD) Non-Af 36 L, BUN/Creatinine Ratio 26.2 H, Glucose 123 H, Calcium 9.5 Microbiology: Microbiology 03/07/23 19:50 Stool Stool Occult Blood (CLARY) - Final Occult Blood Positive 03/07/23 18:51 Nasal Secretion SARS-CoV-2 & FLU Antigen (Rapid) - Final D/C Instructions Discharge Diet: No restrictions Weight Bearing Status: Weight bearing as tolerated Call your doctor if you observe: Fever of 101 or Higher, Coldness, Increased Pain, Numbness or Tingling, Change in Color, Inability to urinate, Inability to have a bowel movement, Shortness of breath, Dizziness, Fainting spells, Swelling in the ankles, Chest pain, Prolonged hiccupping, Increased palpitations (irregular heartbeat) and Calf discomfort When: IN 2 WEEKS Meaningful Use Info Meaningful Use Diagnoses (Choose all that apply): None applicable Discharge Plan Admission Admit Date/Time: 03/07/23 21:18 Primary Reason for Your Visit: Acute GI bleed. Attending Provider: Fred Ramos Primary Care Provider: Adrianna Nichols Consulting Providers: Romario Blancas Discharge Orders/Prescriptions Prescriptions: Continued furosemide [Lasix] 40 mg tablet 40 mg PO DAILY Qty: 90 3RF atorvastatin 80 mg tablet 80 mg PO DAILY Patient Comments: TAKE 1 TABLET BY MOUTH ONCE DAILY ipratropium-albuterol 0.5 mg-3 mg(2.5 mg base)/3 mL solution for nebulization 3 ml inhalation 4X/DAY PRN (Reason: sob) Patient Comments: inhale contents of 1 vial ( 3 milliliters ) in nebulizer by mouth... (REFER TO PRESCRIPTION NOTES). liothyronine 25 mcg tablet 25 mcg PO DAILY Patient Comments: TAKE 1 TABLET BY MOUTH ONCE DAILY FOR 90 DAYS tiotropium bromide [Spiriva with HandiHaler] 18 mcg capsule, w/inhalation device 18 mcg INHALATION DAILY Patient Comments: INHALE THE CONTENTS OF 1 CAPSULE TWICE EACH TIME VIA HANDIHALER ONCE DAILY cholecalciferol (vitamin D3) 25 mcg (1,000 unit) Capsule 25 mcg PO DAILY omega-3 fatty acids-vitamin E 1,000 mg Capsule 2 cap PO BID PreserVision AREDS [id number] [id number] Capsule 1 cap PO BID lisinopril [Zestril] 20 mg tablet 10 mg PO DAILY Hold Instructions: Resume on 03/18/22. sucralfate 1 gram tablet 1 g PO Q6H 30 Days Qty: 120 0RF glimepiride 2 mg tablet 2 mg PO DAILY Qty: 3 0RF Patient Comments: take 1 tablet by mouth once daily WITH FIRST MEAL OF THE DAY Rx Instructions: Hold if glucose less than 130 mg/dl pantoprazole [Protonix] 40 mg tablet,delayed release (DR/EC) 40 mg PO BID 90 Days Qty: 180 0RF Held Jardiance 25 mg tablet 10 mg PO DAILY Hold Instructions: Hold for creatinine clearance less than 30 mill per minute. Referrals / Follow Up: Adrianna Nichols DO [Primary Care Provider] - Within 2 Weeks Fredy Joy DO [Med Staff - Active Staff] - Within 1 Month Disposition Disposition (needs filled in before D/C Order can be placed): Home, Self Care Charges/Coding Visit Charges Inpatient E&M: 17879 Disch Hosp >30min
[2023-03-09 13:37] LABS: Bedside Glucose 167 mg/dL (74-106)
[2023-03-09 14:18] VITALS: PULSE 101; RESP 20
[2023-03-09] MEDS: Ipratropium/Albuterol Sulfate 3 ML AMPUL.NEB INHALATION (14:18)
--- NOTE | 2023-03-09 14:22 | PHA.DC.MR.R ---
Pharmacy MA Med Reconciliation Pharmacy Service has performed discharge medication reconciliation for this patient. No new medications at time of discharge reivew. The patient's discharge medication list was reviewed for discrepancies and discrepancies were resolved. Medications at Discharge Home Medications atorvastatin 80 mg tablet 80 mg PO DAILY CHOLESTEROL 05/02/21 cholecalciferol (vitamin D3) 25 mcg (1,000 unit) capsule 25 mcg PO DAILY vitamin 05/02/21 ipratropium 0.5 mg-albuterol 3 mg (2.5 mg base)/3 mL nebulization soln 3 ml inhalation 4X/DAY PRN sob 05/02/21 liothyronine 25 mcg tablet 25 mcg PO DAILY THYROID 05/02/21 omega-3 fatty acids-vitamin E 1,000 mg capsule 2 cap PO BID SUPPLEMENT 05/02/21 tiotropium bromide 18 mcg capsule with inhalation device (Spiriva with HandiHaler) 18 mcg inhalation DAILY SOB 05/02/21 vitamins A,C,M-ejop-imuoli 4,296 mcg-226 mg-90 mg capsule (PreserVision AREDS) 1 cap PO BID vitamin 12/13/21 lisinopril 20 mg tablet (Zestril) 10 mg PO DAILY blood pressure 03/12/22 furosemide 40 mg tablet (Lasix) 40 mg PO DAILY diuretic #90 tabs 07/06/22 empagliflozin 25 mg tablet (Jardiance) 10 mg PO DAILY dm 11/16/22 glimepiride 2 mg tablet 2 mg PO DAILY DM #3 tabs 03/09/23 pantoprazole 40 mg tablet,delayed release (Protonix) 40 mg PO BID 90 days #180 tabs 03/09/23 sucralfate 1 gram tablet 1 g PO Q6H 30 days #120 tabs 03/09/23
--- NOTE | 2023-03-09 16:21 | PN.GI_ITS ---
Subjective Subjective Patient is doing well. He is tolerating a diet. He underwent upper endoscopy yesterday for acute on chronic GI bleed with symptomatic anemia. He was discovered to have bleeding gastric ulcers which were treated endoscopically. These were thought to be secondary to his medicines that he takes as an outpatient and poor wound healing. Objective Data Objective Data Vital Signs: Vital Signs Temp Pulse Resp BP Pulse Ox O2 Del Method O2 Flow Rate 97.8 F 101 H 20 H 153/50 H 98 Nasal Cannula 2 03/09/23 09:37 03/09/23 14:18 03/09/23 14:18 03/09/23 09:37 03/09/23 09:37 03/09/23 09:37 03/09/23 09:37 Oxygen Flow Rate (L/min) 2 Oxygen Delivery Method Nasal Cannula Weight: 186 lb 15.232 oz Body Mass Index (BMI) 31.1 Intake & Output: Intake and Output for Last 24 Hours 03/07/23 03/08/23 03/09/23 23:59 23:59 23:59 Intake Total 110 / 110 429.25 / 429.25 520 / 520 Output Total 1450 / 1450 400 / 400 Balance 110 / -340 -1020.75 / -1020.75 120 / 120 Lab / Micro Data 03/09/23 06:33 03/09/23 06:33 Labs: Laboratory Results - last 24 hr 03/08/23 17:18: POC Glucose 128 H 03/08/23 21:35: POC Glucose 194 H 03/09/23 06:09: POC Glucose 116 H 03/09/23 06:33: WBC 4.2 L, RBC 3.44 L, Hgb 9.3 L, Hct 30.2 L, MCV 87.8, MCH 27.0, MCHC 30.8 L, RDW Std Deviation 55.2 H, RDW Coeff of John 17.4 H, Plt Count 108 L, MPV 11.1, Immature Gran % (Auto) 0.500, Neut % (Auto) 57.7, Lymph % (Auto) 25.7, [place] % (Auto) 9.8, Eos % (Auto) 5.8 H, Baso % (Auto) 0.5, Absolute Neuts (auto) 2.4, Absolute Lymphs (auto) 1.07, Nucleated RBC % 0, Sodium 143, Potassium 4.3, Chloride 110 H, Carbon Dioxide 28.0, Anion Gap 5, BUN 50 H, Creatinine 1.91 H, Estim Creat Clear Calc 25.49, Est GFR (MDRD) Af Amer 43 L, Est GFR (MDRD) Non-Af 36 L, BUN/Creatinine Ratio 26.2 H, Glucose 123 H, Calcium 9.5 03/09/23 13:11: POC Glucose 167 H Micro: Microbiology 03/09/23 12:55 Stool Clostridioides difficile (PCR) - Final 03/09/23 12:55 Stool Stool Lactoferrin - Final 03/07/23 19:50 Stool Stool Occult Blood (CLARY) - Final Occult Blood Positive 03/07/23 18:51 Nasal Secretion SARS-CoV-2 & FLU Antigen (Rapid) - Final Rhythm Strip Rhythm Strip: Sinus Tach Rate: 104 Ectopy: None Physical Exam Narrative Seen and examined. History of COPD and heart failure and CKD stage IV. Chronic dyspnea on exertion. Diarrhea has resolved denies abdominal pain Physical exam General: Alert, Oriented x3, Cooperative HEENT: Atraumatic, PERRLA, EOMI, Normocephalic Oral: No Gingival or Mucosal Lesions/ Ulcerations Neck: Supple, No JVD, Negative Carotid Bruits Lungs: Air entry diminished in bilateral lung bases. No crepitation/rhonchi. Mild dyspnea on exertion Cardiovascular: Regular rate, Regular Rhythm, Normal S1, Normal S2, systolic murmur right second ICS and cardiac apex Abdomen: Bowel Sounds Present, Soft, Non Tender, Non-Distended : No renal angle tenderness. No suprapubic tenderness. Extremities: No edema, Capillary Refill Less than 3 Seconds Skin: No rashes, No breakdown Musculoskeletal: No Tenderness to Palpation of Joints or Extremities Neurological: Cranial nerves II-XII grossly intact, DTR 2+/4. No acute focal neurological deficit. Psych/Mental Status: Flat affect. Assessment & Plan Assessment/Plan (1) Acute on chronic blood loss anemia: (2) Acute upper gastrointestinal bleeding: PLAN: Plan Patient is an 82-year-old male who presented to [facility] ED on 03/07/2023 with worsening shortness of breath on exertion and intermittent dark stools. Acute on chronic anemia, suspected recurrent upper GI bleed Follows with Dr. Joy, last office visit on 02/21/23. Previous EGD on 11/17/2022 shows bleeding AVM of the stomach which was treated with heater probe, Many nonbleeding superficial gastric ulcers, many nonbleeding duodenal ulcers H. pylori negative. GI consulted. Hemoglobin slight drop from 7.9 on 02/15 to 7.5 on 03/07. Stool occult blood positive in ED. most recently 8.2. Platelet count 80,000. Mild leukopenia. Status post treatment yesterday of gastric ulcers around a lesser curvature. Biopsies were taken for intestine metaplasia, dysplasia and H. pylori. Patient can continue medication regimen including 40 mg Protonix twice daily and sulcal fate. Repeat endoscopy in approximately 3 months. Repeat H&H in approximately 3 to 5 days. Charges/Coding Visit Charges Inpatient E&M: 05331 Subs Hosp L3
[2023-03-09] MEDS: Pantoprazole Sodium 40 MG Tablet PO (16:46)
[2023-03-09 16:48] VITALS: BP 131/87; PULSE 100; RESP 18; TEMP 36.6; O2SAT 95
[2023-03-13 12:07] LABS: Giardia Lamblia, Stool EIA Negative (Negative)
== END 2023-03-09 17:13 | disposition home or self-care (01) | DRG 378 ==
LOC: ED 20:38 → PCU 03-08 01:07
PROVIDERS: Internal Medicine Gastroenterology; Admitting Provider Hospitalist; Emergency Provider Emergency Medicine; PCP Family Medicine; Visit Provider Internal Medicine
PROC: 0DJ08ZZ Inspection of Upper Intestinal Tract, Via Natural or Artificial Opening Endoscopic (ICD-10-PCS; CPT 43235; principal; 2023-03-08 15:55)
DX: K25.4 Chronic or unspecified gastric ulcer with hemorrhage (principal); D62 Acute posthemorrhagic anemia; N18.4 Chronic kidney disease, stage 4 (severe); J96.10 Chronic respiratory failure, unspecified whether with hypoxia or hypercapnia; I13.0 Hypertensive heart and chronic kidney disease with heart failure and stage 1 through stage 4 chronic kidney disease, or unspecified chronic kidney disease; I50.32 Chronic diastolic (congestive) heart failure; D69.6 Thrombocytopenia, unspecified; E11.22 Type 2 diabetes mellitus with diabetic chronic kidney disease; J44.9 Chronic obstructive pulmonary disease, unspecified; E11.65 Type 2 diabetes mellitus with hyperglycemia; D50.9 Iron deficiency anemia, unspecified; E78.5 Hyperlipidemia, unspecified; I25.10 Atherosclerotic heart disease of native coronary artery without angina pectoris; K29.70 Gastritis, unspecified, without bleeding; K44.9 Diaphragmatic hernia without obstruction or gangrene; K29.80 Duodenitis without bleeding; K22.70 Barrett's esophagus without dysplasia; K26.9 Duodenal ulcer, unspecified as acute or chronic, without hemorrhage or perforation; Z87.891 Personal history of nicotine dependence; Z79.84 Long term (current) use of oral hypoglycemic drugs; Z82.3 Family history of stroke; Z66 Do not resuscitate
CPT/HCPCS: 36415; 71046; 80048; 82274; 82962; 83630; 83880; 84484; 85025; 85027; 86850; 86900; 86901; 86920; 86922; 87329; 87428; 87493; 87506; 88305; 88342; 93005; 94640; 94668; 97162; 99285; J7120; P9016; A4216

== ENCOUNTER 2023-04-02 08:34 | Day surgery (SDC) | payer MEDICARE, SELFPAY ==
[2023-04-02] MEDS: Lactated Ringers 1,000 ML 15 ML IV (09:14)
[2023-04-02 09:15] VITALS: BP 141/49; PULSE 112; RESP 23; TEMP 37.1; O2SAT 96; BMI 32.4
--- NOTE | 2023-04-02 09:51 | HP.PCM_ITS ---
History and Physical Date of Admission: 04/02/23 82-year-old patient with COPD presents by EMS for shortness of breath got worse today. He states he has been resting today and not doing anything in particular other than walking around the house, he thinks the context of this worsening see may be to be conversation. There was no other obvious trigger for this getting worse but it was not sudden. Denies any chest discomfort. Denies any worsening edema in his legs. He has been on Lasix and compliant with that but he is on another diuretic because he states he has issues with his kidneys. He started having a cough and runny diarrhea today. In March 2022 for non-ST elevated myocardial infarction, acute congestive heart failure, hypertension, and hyperlipidemia. He had an echocardiogram that showed ejection fraction of 65%, mild concentric LVH, and mild aortic valve stenosis. He underwent a heart catheterization on 03/15/2022 that showed left main with 25% stenosis, LAD with mild luminal irregularities, diagonal 1 with 50% stenosis, LCx with mild luminal irregularities, and RCA with mild luminal irregularities. Medical therapy was recommended. He was diuresed and discharged home. He returned to the Emergency Department with ongoing shortness of breath. He was admitted and diuresed. He also has a past medical history of COPD, diabetes mellitus type 2, and hypothyroidism. Vitals in the ED were temp of 98.1F, DC of 99, BP of 132/64, RR of 22 and he was saturating at 97% on 2L of oxygen. CBC shwoed hb of 6.4, wbc of 5.7, platelets of 124; chemistry showed sodium of 139, potassium of 5.1, Cr of 2.91 and BNP was only 50.7. COVID test was negative and CXR showed no acute cardiopulmonary process. He denied any recent history of dark stools, and is on aspirin. He has no history of over the counter pain meds. I saw him previously couple months ago for acute blood loss anemia. 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 [facility] Medical History Acute and chronic respiratory failure with hypoxia Aortic valve stenosis, acquired Atherosclerotic heart disease of [place] coronary artery without angina pectoris CAD (coronary artery disease) Chronic respiratory failure with hypoxia COPD (chronic obstructive pulmonary disease) Diabetes Diabetes mellitus, type 2 Diastolic CHF Former smoker Former tobacco use History of CAD (coronary artery disease) History of left heart catheterization (LHC) (~03/15/22) HLD (hyperlipidemia) HTN (hypertension) Hypertension Hypothyroidism Kidney disease Mild left ventricular hypertrophy Myocardial infarct Nonrheumatic aortic (valve) stenosis Obesity On home oxygen therapy Polyarthralgia TIA (transient ischemic attack) Home Medications atorvastatin 80 mg tablet 80 mg PO DAILY CHOLESTEROL 05/02/21 [History Last Taken 02/14/23] cholecalciferol (vitamin D3) 25 mcg (1,000 unit) capsule 25 mcg PO DAILY vitamin 05/02/21 [History Last Taken 02/15/23] ipratropium 0.5 mg-albuterol 3 mg (2.5 mg base)/3 mL nebulization soln 3 ml inhalation 4X/DAY PRN sob 05/02/21 [History Last Taken 02/15/23] liothyronine 25 mcg tablet 25 mcg PO DAILY THYROID 05/02/21 [History Last Taken 02/15/23] omega-3 fatty acids-vitamin E 1,000 mg capsule 2 cap PO BID SUPPLEMENT 05/02/21 [History Last Taken 02/15/23] tiotropium bromide 18 mcg capsule with inhalation device (Spiriva with HandiHaler) 18 mcg inhalation DAILY SOB 05/02/21 [History Last Taken 02/15/23] vitamins A,C,Q-tiho-klxiyq 4,296 mcg-226 mg-90 mg capsule (PreserVision AREDS) 1 cap PO BID vitamin 12/13/21 [History Last Taken 02/15/23] lisinopril 20 mg tablet (Zestril) 10 mg PO DAILY blood pressure 03/12/22 [History Last Taken 02/15/23] glimepiride 2 mg tablet 2 mg PO DAILY DM 05/24/22 [History Last Taken 02/15/23] furosemide 40 mg tablet (Lasix) 40 mg PO DAILY diuretic #90 tabs 07/06/22 [Rx Last Taken 02/15/23] empagliflozin 25 mg tablet (Jardiance) 10 mg PO DAILY dm 11/16/22 [History Last Taken 02/15/23] pantoprazole 40 mg tablet,delayed release (Protonix) 40 mg PO BID 12 weeks #168 tabs 11/18/22 [Rx Last Taken 02/15/23] sucralfate 1 gram tablet 1 g PO Q6H 8 weeks #224 tabs 11/18/22 [Rx Last Taken 02/15/23] Allergy/AdvReac Type Severity Reaction Status Date / Time codeine AdvReac Upset Verified 03/07/23 18:27 Stomach Family History Mother CVA (cerebral vascular accident) Heart disease Myocardial infarction Hx of CABG HypertensionFather CVA (cerebral vascular accident) Heart disease Surgical History S/P cataract extraction Social History household members: none housing: house Smoking Status: Former smoker how long ago did patient quit smoking: Quit 2010, prior 1 ppd since teen. alcohol intake: former year quit: 2010 substance use type: does not use ROS Constitutional Constitutional: Denies chills, fatigue, fever(s) or weakness Eyes Eyes: Denies change in vision Cardiovascular Cardiovascular: Reports dyspnea on exertion; Denies chest pain, edema, lightheadedness, palpitations or rapid heart rate Respiratory/Chest Respiratory/Chest: Denies cough, shortness of breath at rest or wheezing Gastrointestinal Gastrointestinal: Reports melena; Denies abdominal pain, constipation, diarrhea, nausea or vomiting Genitourinary Genitourinary: Denies dysuria Musculoskeletal Musculoskeletal: Denies arthralgias or back pain Neurologic Neurologic: Denies dizziness, focal weakness or headache(s) Physical Exam Narrative Seen and examined. Patient admitted with loose watery stool with dark color for 2 to 3 days. Denies nausea or vomiting. Dyspnea on exertion. Patient had endoscopy/EGD recently. Denies abdominal pain Physical exam General: Alert, Oriented x3, Cooperative HEENT: Atraumatic, PERRLA, EOMI, Normocephalic Oral: No Gingival or Mucosal Lesions/ Ulcerations Neck: Supple, No JVD, Negative Carotid Bruits Lungs: Air entry diminished in bilateral lung bases. No crepitation/rhonchi. Mild dyspnea on exertion Cardiovascular: Regular rate, Regular Rhythm, Normal S1, Normal S2, No murmurs Abdomen: Bowel Sounds Present, Soft, Non Tender, Non-Distended : No renal angle tenderness. No suprapubic tenderness. Extremities: No edema, Capillary Refill Less than 3 Seconds Skin: No rashes, No breakdown Musculoskeletal: No Tenderness to Palpation of Joints or Extremities Neurological: Cranial nerves II-XII grossly intact, DTR 2+/4. No acute focal neurological deficit. Psych/Mental Status: Flat affect. Lab / Micro Data 03/08/23 05:30 03/07/23 18:23 Labs: Laboratory Results - last 24 hr 03/07/23 18:23: WBC 4.0 L, RBC 2.70 L, Hgb 7.5 L, Hct 24.5 L, MCV 90.7, MCH 27. 8, MCHC 30.6 L, RDW Std Deviation 55.5 H, RDW Coeff of John 17.1 H, Plt Count 107 L, MPV 11.9, Immature Gran % (Auto) 0.200, Neut % (Auto) 63.7, Lymph % (Auto) 25.2, [place] % (Auto) 8.2, Eos % (Auto) 2.5, Baso % (Auto) 0.2, Absolute Neuts (auto) 2.6, Absolute Lymphs (auto) 1.02, Nucleated RBC % 0, Sodium 143, Potassium 4.2, Chloride 107, Carbon Dioxide 29.0, Anion Gap 7, BUN 77 H, Creatinine 2.67 H, Estim Creat Clear Calc 18.24, Est GFR (MDRD) Af Amer 30 L, Est GFR (MDRD) Non-Af 24 L, BUN/Creatinine Ratio 28.8 H, Glucose 223 H, Calcium 9.1, Troponin I High Sens 34, B-Natriuretic Peptide 78.3 03/07/23 21:08: Blood Type A NEGATIVE, Antibody Screen NEGATIVE, Crossmatch See Detail 03/08/23 05:30: WBC 3.9 L, RBC 3.02 L, Hgb 8.2 L, Hct 26.5 L, MCV 87.7, MCH 27.2, MCHC 30.9 L, RDW Std Deviation 54.2 H, RDW Coeff of John 17.2 H, Plt Count 80 L, MPV 10.9, Differential Comment SCANNED Micro: Microbiology 03/07/23 19:50 Stool Stool Occult Blood (CLARY) - Final Occult Blood Positive 03/07/23 18:51 Nasal Secretion SARS-CoV-2 & FLU Antigen (Rapid) - Final Rhythm Strip Rhythm Strip: Sinus Tach Rate: 104 Ectopy: None Imagaing Radiology Impression Chest X-Ray 03/07/23 19:26 IMPRESSION: Poor inspiration with some bibasilar atelectasis. Electronically Signed: Dennis Garcia MD at 19:54 EST , Assessment & Plan Assessment/Plan (1) Acute upper gastrointestinal bleeding: PLAN: 82-year-old male who presented [facility] ED on 03/07/2023 with worsening shortness of breath on exertion and intermittent dark stools. 1. Acute on chronic anemia, suspected recurrent upper GI bleed Follows with Dr. Joy, last office visit on 02/21/23. Previous EGD on 11/17/2022 shows bleeding AVM of the stomach which was treated with heater probe, Many nonbleeding superficial gastric ulcers, many nonbleeding duodenal ulcers H. pylori negative. GI consulted. Hemoglobin slight drop from 7.9 on 02/15 to 7.5 on 03/07. Stool occult blood positive in ED. most recently 8.2. Platelet count 80,000. Mild leukopenia. Plan for EGD today. On IV PPI. 03/09: Patient had EGD yesterday as described below. Patient had loose bowel movement yesterday night. Although stool studies for enteric bacteriology panel, C. difficile and Giardia were ordered is not collected but patient did not have any loose bowel movement or diarrhea since yesterday night. No abdominal pain. He wants to go home. He feels back to baseline. Patient is discharged sucralfate for 1 more month and PPI 40 mg twice daily. Impression: - Mena's esophagus. - Small hiatal hernia. - Oozing gastric ulcers with pigmented material. Injected. Treated with a heater probe. - Gastritis. Biopsied. - Duodenitis. Biopsied. Recommendation: - Use sucralfate tablets 1 gram PO QID. - Continue present medications. - EGD with capsule endoscopy to look for other signs of GI bleeding I have examined the patient and the H&P has been reviewed. There are no clinical changes since date of exam.
[2023-04-02 10:34] LABS: Bedside Glucose 170 mg/dL (74-106)
[2023-04-02 10:46] VITALS: BP 140/56; BP 141/49; PULSE 93; RESP 18; TEMP 36.8; O2SAT 95
--- NOTE | 2023-04-02 10:49 | OP.CCLET_ITS ---
04/02/2023 Adrianna Berrios Do Re : Upper GI endoscopy procedure for Corona West Dear Agustina This procedure was performed on Sunday, April 02, 2023. My impressions and recommendations are as follows: Impressions : - No endoscopic esophageal abnormality to explain patient's dysphagia. Esophagus dilated. Dilated. - No gross lesions in the entire stomach. - Small hiatal hernia. - Multiple duodenal polyps. - Successful completion of the Video Capsule Enteroscope placement. - No specimens collected. Recommendations : - Discharge patient to home. - Resume previous diet. - Continue present medications. My findings are described in the full procedure note, which is enclosed. If I can be of further assistance, please feel free to contact me at . Sincerely, Fredy Joy, 04/02/2023 10:48:29 AM This report has been signed electronically.
--- NOTE | 2023-04-02 10:49 | OP.EGD_ITS ---
Patient Name: Corona West Procedure Date: 04/02/2023 10:26 AM Date of : 1940 Age: 82 Procedure: Upper GI endoscopy Indications: Iron deficiency anemia, Hematochezia Providers: Fredy Joy DO Medicines: Monitored Anesthesia Care Patient Profile: This is an 82 year old male. Refer to note in patient chart for documentation of history and physical. Patient has symptoms of dysphagia with both liquids and solids. Complications: No immediate complications. Procedure: Pre-Anesthesia Assessment: - Prior to the procedure, a History and Physical was performed, and patient medications and allergies were reviewed. The patient is competent. The risks and benefits of the procedure and the sedation options and risks were discussed with the patient. All questions were answered and informed consent was obtained. Patient identification and proposed procedure were verified by the physician in the pre-procedure area. Mental Status Examination: normal. Airway Examination: normal oropharyngeal airway and neck mobility. Respiratory Examination: clear to auscultation. CV Examination: normal. Prophylactic Antibiotics: The patient does not require prophylactic antibiotics. Prior Anticoagulants: The patient has taken no anticoagulant or antiplatelet agents. ASA Grade Assessment: III - A patient with severe systemic disease. After reviewing the risks and benefits, the patient was deemed in satisfactory condition to undergo the procedure. The anesthesia plan was to use monitored anesthesia care (MAC). Immediately prior to administration of medications, the patient was re-assessed for adequacy to receive sedatives. The heart rate, respiratory rate, oxygen saturations, blood pressure, adequacy of pulmonary ventilation, and response to care were monitored throughout the procedure. The physical status of the patient was re-assessed after the procedure. After obtaining informed consent, the endoscope was passed under direct vision. Throughout the procedure, the patient's blood pressure, pulse, and oxygen saturations were monitored continuously. The Endoscope was introduced through the mouth, and advanced to the second part of duodenum. The upper GI endoscopy was accomplished without difficulty. The patient tolerated the procedure well. Scope In: 10:37:37 AM Scope Out: 10:41:15 AM Total Procedure Duration Time 0 hours 3 minutes 38 seconds Findings: No endoscopic abnormality was evident in the esophagus to explain the patient's complaint of dysphagia. It was decided, however, to proceed with dilation of the upper third of the esophagus. A guide wire was placed, then the scope was withdrawn. Using the wire as a guide, dilation with a 45 Fr balloon dilator was performed to 15 mm. The dilation site was examined following endoscope reinsertion and showed moderate mucosal disruption. Estimated blood loss was minimal. No gross lesions were noted in the entire examined stomach. A small hiatal hernia was present. Multiple 2 mm sessile polyps with no bleeding were found in the ampulla. Using the endoscope, the video capsule enteroscope [Model / Lot Number] was advanced into the third portion of the duodenum. Impression: - No endoscopic esophageal abnormality to explain patient's dysphagia. Esophagus dilated. Dilated. - No gross lesions in the entire stomach. - Small hiatal hernia. - Multiple duodenal polyps. - Successful completion of the Video Capsule Enteroscope placement. - No specimens collected. Recommendation: - Discharge patient to home. - Resume previous diet. - Continue present medications. Procedure Code(s): --- Professional --- 18604, Esophagogastroduodenoscopy, flexible, transoral; with insertion of guide wire followed by passage of dilator(s) through esophagus over guide wire CPT copyright 2021 [employer]. All rights reserved. The codes documented in this report are preliminary and upon medical office receptionist assistant review may be revised to meet current compliance requirements. Fredy Joy DO 04/02/2023 10:48:29 AM This report has been signed electronically. Number of Addenda: 0 Note Initiated On: 04/02/2023 10:26 AM
[2023-04-02 10:50] VITALS: BP 120/63; BP 141/49; PULSE 93; RESP 18; O2SAT 96
[2023-04-02 10:55] VITALS: BP 141/49; BP 142/61; PULSE 93; RESP 18; O2SAT 96
[2023-04-02 11:01] VITALS: BP 136/59; BP 141/49; PULSE 90; RESP 18; TEMP 37; O2SAT 98
[2023-04-02 11:11] VITALS: BP 141/49
== END 2023-04-02 11:27 | disposition home or self-care (01) ==
LOC: EN 08:42 → AC 08:44
PROVIDERS: PCP Family Medicine; Referring Provider Family Medicine; Visit Provider Internal Medicine Gastroenterology
PROC: 0DJ08ZZ Inspection of Upper Intestinal Tract, Via Natural or Artificial Opening Endoscopic (ICD-10-PCS; CPT 43235; principal; 2023-04-02 10:25)
DX: K22.70 Barrett's esophagus without dysplasia (principal); J44.9 Chronic obstructive pulmonary disease, unspecified; I11.0 Hypertensive heart disease with heart failure; I50.32 Chronic diastolic (congestive) heart failure; E11.9 Type 2 diabetes mellitus without complications; D50.9 Iron deficiency anemia, unspecified; Z79.84 Long term (current) use of oral hypoglycemic drugs; K25.9 Gastric ulcer, unspecified as acute or chronic, without hemorrhage or perforation; Z87.891 Personal history of nicotine dependence; K44.9 Diaphragmatic hernia without obstruction or gangrene; Z82.3 Family history of stroke; E78.5 Hyperlipidemia, unspecified; I25.10 Atherosclerotic heart disease of native coronary artery without angina pectoris; K31.7 Polyp of stomach and duodenum; K29.80 Duodenitis without bleeding; K29.70 Gastritis, unspecified, without bleeding
CPT/HCPCS: 43248; 82962; J7120; J2405

== ENCOUNTER 2023-04-07 13:40 | Emergency (ER) | payer MEDICARE, SELFPAY ==
[2023-04-07 13:42] VITALS: PULSE 115; RESP 36; TEMP 36.9; O2SAT 91; BMI 33.2
--- NOTE | 2023-04-07 13:48 | RAD_ITS ---
INDICATION: chest pain EXAMINATION/TECHNIQUE: X-RAY - XR Chest 1 View COMPARISON: Prior study dated: 2722 FINDINGS: LINES/DEVICES: None. LUNGS: No new infiltrate is seen. Hypoventilatory changes in the right lung base. No evidence of pleural effusions. MEDIASTINUM AND CARDIOVASCULAR STRUCTURES: Cardiac silhouette not enlarged. Central airways and mediastinal contour are unremarkable. BONES AND SOFT TISSUES: Unchanged. RAD/Chest 1 View (Portable) IMPRESSION: No significant change. No new infiltrate is seen. Electronically Signed: Jay Dowd MD at 14:16 EST ,
--- NOTE | 2023-04-07 13:53 | ED.VIS.DYS ---
HPI History of Present Illness Chief Complaint: Shortness of Breath Informant: patient and family Onset/Context/Timing Onset: Today Context: gradual Timing: Continuous Current Severity: Mild Maximum Severity: Mild Worsened by: Nothing Relieved by: Oxygen Associated Symptoms Negative for cough Chest Pain: Positive for None Narrative Narrative: 82-year-old male history of chronic respiratory failure, CAD, COPD, diabetes, GI bleed with recent blood transfusion. States that he was admitted to the hospital last several weeks and needed to blood transfusions. States he is became short of breath less than an hour ago. He had some intermittent wheezing last couple days but not today. No chest pain. No fever or chills. No nausea, vomiting or diarrhea. Denies any leg pain or swelling. No hemoptysis. No DVT or PE history. No recent new cough. Patient is chronically on O2. PE Risk Factors: Negative for Cancer, OCP + Smoking + > 35, Prior DVT or PE, Recent immobilization, Recent surgery or Recent travel Prior similar symptoms: Yes Recent Illness/Hospitalization: No PFSH PFSH Medical History Acute and chronic respiratory failure with hypoxia Aortic valve stenosis, acquired Atherosclerotic heart disease of [place] coronary artery without angina pectoris CAD (coronary artery disease) Cardiology follow-up encounter Chronic respiratory failure with hypoxia COPD (chronic obstructive pulmonary disease) Diabetes Diabetes mellitus, type 2 Diastolic CHF Former smoker Former tobacco use High cholesterol History of CAD (coronary artery disease) History of echocardiogram History of GI bleed History of left heart catheterization (LHC) (~03/15/22) HLD (hyperlipidemia) HTN (hypertension) Hypertension Hypothyroidism Kidney disease Loss of hearing Low iron Mild left ventricular hypertrophy Myocardial infarct No natural teeth Nonrheumatic aortic (valve) stenosis Obesity On home oxygen therapy Polyarthralgia Poor historian Shortness of breath on exertion Symptomatic anemia Syncope Thyroid disease TIA (transient ischemic attack) Wears glasses Home Medications atorvastatin 80 mg tablet 80 mg PO DAILY CHOLESTEROL 05/02/21 [History Last Taken 02/14/23] cholecalciferol (vitamin D3) 25 mcg (1,000 unit) capsule 25 mcg PO DAILY vitamin 05/02/21 [History Last Taken 02/15/23] ipratropium 0.5 mg-albuterol 3 mg (2.5 mg base)/3 mL nebulization soln 3 ml inhalation 4X/DAY PRN sob 05/02/21 [History Last Taken 02/15/23] liothyronine 25 mcg tablet 25 mcg PO DAILY THYROID 05/02/21 [History Last Taken 02/15/23] omega-3 fatty acids-vitamin E 1,000 mg capsule 2 cap PO BID SUPPLEMENT 05/02/21 [History Last Taken 02/15/23] tiotropium bromide 18 mcg capsule with inhalation device (Spiriva with HandiHaler) 18 mcg inhalation DAILY SOB 05/02/21 [History Last Taken 02/15/23] vitamins A,C,A-ashe-cspoqz 4,296 mcg-226 mg-90 mg capsule (PreserVision AREDS) 1 cap PO BID vitamin 12/13/21 [History Last Taken 02/15/23] lisinopril 20 mg tablet (Zestril) 10 mg PO DAILY blood pressure 03/12/22 [History Last Taken 02/15/23] furosemide 40 mg tablet (Lasix) 40 mg PO DAILY diuretic #90 tabs 07/06/22 [Rx Last Taken 02/15/23] glimepiride 2 mg tablet 2 mg PO DAILY DM #3 tabs 03/09/23 [Rx Last Taken 02/15/23] pantoprazole 40 mg tablet,delayed release (Protonix) 40 mg PO BID 90 days #180 tabs 03/09/23 [Rx Last Taken Unknown] sucralfate 1 gram tablet 1 g PO TID 30 days #90 tabs 03/23/23 [Rx Last Taken Unknown] sucralfate 1 gram tablet (Carafate) 1 g PO BID 30 days #60 tabs 03/23/23 [Rx Last Taken Unknown] Allergy/AdvReac Type Severity Reaction Status Date / Time codeine AdvReac Upset Verified 04/07/23 13:44 Stomach Family History Mother CVA (cerebral vascular accident) Heart disease Myocardial infarction Hx of CABG Hypertension Father CVA (cerebral vascular accident) Heart disease Surgical History S/P cataract extraction Social History household members: none housing: house Smoking Status: Former smoker how long ago did patient quit smoking: Quit 2010, prior 1 ppd since teen. alcohol intake: former year quit: 2010 substance use type: does not use ROS ROS ED ROS Narrative Shortness of breath today. Denies recent illness. Denies chest pain. Denies wheezing. Denies fever. Denies leg pain or swelling. Denies hemoptysis. Review of Systems ROS Unobtainable: Denies due to encephalopathy Constitutional Constitutional ED: Denies chills or fever(s) Eyes Eyes: Denies blurry vision ENT ENT ED: Denies ear pain, rhinorrhea or sore throat Cardiovascular Cardiovascular: Denies chest pain, orthopnea or paroxysmal nocturnal dyspnea Respiratory/Chest Respiratory/Chest: Reports dyspnea; Denies cough, dyspnea on exertion, orthopnea, paroxysmal nocturnal dyspnea or sputum Gastrointestinal Gastrointestinal: Denies abdominal pain, constipation, diarrhea, melena, nausea or vomiting Genitourinary Genitourinary ED: Denies dysuria or hematuria Musculoskeletal Musculoskeletal: Denies arthralgias Integumentary Denies abscess Neurologic Neurologic: Denies headache(s) Psychiatric Psychiatric: Denies anxiety Endocrine Endocrinology: Denies cold intolerance Hematologic/Lymphatic Hematologic/Lymphatic: Denies easy bleeding, easy bruising or lymphadenopathy Allergic/Immunologic Allergic/Immunologic ED: Denies mouth swelling, tongue swelling or urticaria EXAM Physical Exam Narrative Exam Narrative: Well-appearing 82-year-old male. Vital signs temperature 98.4. Pulse ox 91% on 3 L which is his baseline oxygen. He is tachycardic 115. He does not look septic toxic. H EENT exam unremarkable. Neck nontender no JVD. Lungs clear to auscultation bilaterally. Currently no rales rhonchi or wheezing. Equal symmetrical. Heart tachycardic rate about 115 no murmur. Chest wall and ribs nontender. Abdomen soft nontender. Moving all 4 extremities. Calves are nontender without edema or cords. Back nontender. Neurologically is awake and alert. Answering questions following commands. No focal motor deficits. Const Vital Signs: 04/07/23 13:42 04/07/23 14:07 04/07/23 14:19 Temperature 98.4 F Temperature Source Oral Pulse Rate 115 H Respiratory Rate 36 H Respiratory Effort Short of Breath Respiratory Depth Shallow Respiratory Pattern Normal Pulse Ox 91 Oxygen Delivery Method Nasal Cannula Nasal Cannula Nasal Cannula Oxygen Flow Rate (L/min) 3 4 3 Fraction of Inspired Oxygen (FIO2) 97 Positive well nourished and well developed; Negative for cachectic, contractures or unkempt General Appearance ED: well developed and NAD; Negative for unkempt, cachectic, contractures or pallor Nutritional Appearance: Negative for cachectic HEENT Reports moist mucous membranes; Denies dry mucous membranes atraumatic; Negative for trauma or tenderness Mouth ED: No dry mucous membranes Mouth: No dry mucous membranes Eyes PERRL and EOMs intact bilaterally General Eye ED: Negative for pale conjunctiva or scleral icterus Neck no lymphadenopathy, supple, no meningeal signs and no JVD General: Negative for tenderness Lymph Lymphatic: Negative for other Chest Wall Chest: Negative for other Resp normal respiratory effort and clear to auscultation bilaterally Effort and Inspection: Negative for pain with movement Auscultation: Negative for rales, rhonchi or wheezes Cardio regular rhythm, S1 normal heart sound, S2 normal heart sound and no murmurs; Negative for regular rate Rate: tachycardic Rhythm: Negative for abnormal rhythm GI non-tender, non-distended and no masses Inspection: Negative for other Auscultation: normoactive bowel sounds Palpation: soft; Negative for tender or guarding Back/Spine no CVA tenderness and normal to inspection General Back: Negative for CVA tenderness or tenderness Extremity normal to inspection General Extremety ED: Negative for edema, tenderness or other findings General Extremity: Negative for edema or other findings Neuro oriented x3 and CN's II-XII intact bilaterally Sensorium / Orientation: alert, oriented to person, oriented to place and oriented to time; Negative for orientation impaired, confused, lethargic or stuporous Speech: speech normal Motor Exam: strength 5/5 throughout Psych mental status grossly normal Appearance: Negative for unkempt Attitude: No agitated and No other Mood & Affect: Negative for depressed, anxious or tearful Thought Process: normal thought process Skin no wounds and skin turgor normal General Skin Exam: Negative for jaundice or pallor Lesions: no lesions Rashes: no rashes Trauma: Negative for abrasion or laceration MDM MDM MDM Narrative Medical decision making narrative: 82-year-old male with shortness of breath. He is concerned his he recently was anemic and required transfusion. He is at longstanding significant past medical history. Currently he is not wheezing at all that he needs aerosols or steroids right now. I do not think this is acutely cardiac. He has no complaints of recent respiratory infection. He has never had a DVT or PE. He denies any chest pain or hemoptysis. There is no leg pain or swelling. Undergo a cardiac workup. Repeat exam at 3:42 PM patient doing well. He is sitting upright on his bed. Said he feels much better. He is never had any chest pain the entire time. He is currently on his normal 2 to 3 L of oxygen and his sats are 97%. He and family are comfortable with him being discharged home. I went over all the test with him his tests are at his baseline or better. History & Record Review Discussion w/independent historian: Patient Additional record(s) reviewed:: Prior inpatient record, Prior outpatient record, Prior ED visit and Prior labs Lab Data Attestation: I reviewed the patient's lab results. Lab results narrative: CBC shows a white count of 5.8. H&H of 10 and 32 which is his baseline chronic anemia. Platelets 110,000. Again chronic. Electrolytes show a gap of 5. BUN of 47 creatinine 2.17 acute on chronic renal insufficiency. Glucose 195. Troponin is normal at 36. Blood type is a negative. Labs: Laboratory Results - last 24 hr 04/07/23 13:50 WBC 5.8 RBC 3.63 L Hgb 10.0 L Hct 32.4 L MCV 89.3 MCH 27.5 MCHC 30.9 L RDW Std Deviation 50.7 H RDW Coeff of John 15.7 H Plt Count 110 L MPV 11.0 Immature Gran % (Auto) 0.300 Neut % (Auto) 63.9 Lymph % (Auto) 22.1 [place] % (Auto) 7.4 Eos % (Auto) 5.8 H Baso % (Auto) 0.5 Absolute Neuts (auto) 3.7 Absolute Lymphs (auto) 1.29 Nucleated RBC % 0 Sodium 140 Potassium 4.3 Chloride 103 Carbon Dioxide 32.0 Anion Gap 5 BUN 47 H Creatinine 2.17 H Estim Creat Clear Calc 26.68 Est GFR (MDRD) Af Amer 38 L Est GFR (MDRD) Non-Af 31 L BUN/Creatinine Ratio 21.7 H Glucose 195 H Calcium 9.2 Troponin I High Sens 36 Blood Type A NEGATIVE Antibody Screen NEGATIVE Radiography Chest X-Ray - ED: 1 View, Read by ED Physician, Heart, Lungs, Mediastinum, Bony Structures, No Acute Disease and Chronic Changes Diagnostic Testing: Clinical Impression(s) from Imaging Studies Chest X-Ray 04/07/23 13:48 IMPRESSION: No significant change. No new infiltrate is seen. Electronically Signed: Jay Dowd MD at 14:16 EST Reading Location ID and State: [facility] / [place] Tel , Service support , Chest x-ray, portable, single view interpreted by myself and the radiologist shows no acute abnormality. No significant change. No infiltrate. No effusions. No pneumonia. Rhythm Strip Rhythm Strip: Tachycardia Rate: 106 Ectopy: None EKG Initial EKG: Attestation: I personally reviewed and interpreted this EKG as follows: Interpretation: Junctional Comments: Tachycardia rate of 106 no acute signs of IA or ischemia. This may be a junctional rhythm. No ST elevation or depression. Discharge Plan Triage Chief Complaint: Shortness of Breath ED Provider: Dimitry Lott Dx/Rx/DC Orders Clinical Impression: History of COPD, History of chronic kidney disease, Acute dyspnea, History of CAD (coronary artery disease), History of diabetes mellitus Instructions: ED Dyspnea Prescriptions: No Action furosemide [Lasix] 40 mg tablet 40 mg PO DAILY Qty: 90 3RF atorvastatin 80 mg tablet 80 mg PO DAILY Patient Comments: TAKE 1 TABLET BY MOUTH ONCE DAILY ipratropium-albuterol 0.5 mg-3 mg(2.5 mg base)/3 mL solution for nebulization 3 ml inhalation 4X/DAY PRN (Reason: sob) Patient Comments: inhale contents of 1 vial ( 3 milliliters ) in nebulizer by mouth... (REFER TO PRESCRIPTION NOTES). liothyronine 25 mcg tablet 25 mcg PO DAILY Patient Comments: TAKE 1 TABLET BY MOUTH ONCE DAILY FOR 90 DAYS tiotropium bromide [Spiriva with HandiHaler] 18 mcg capsule, w/inhalation device 18 mcg INHALATION DAILY Patient Comments: INHALE THE CONTENTS OF 1 CAPSULE TWICE EACH TIME VIA HANDIHALER ONCE DAILY cholecalciferol (vitamin D3) 25 mcg (1,000 unit) Capsule 25 mcg PO DAILY omega-3 fatty acids-vitamin E 1,000 mg Capsule 2 cap PO BID PreserVision AREDS [id number] Capsule 1 cap PO BID lisinopril [Zestril] 20 mg tablet 10 mg PO DAILY Hold Instructions: Resume on 03/18/22. glimepiride 2 mg tablet 2 mg PO DAILY Qty: 3 0RF Patient Comments: take 1 tablet by mouth once daily WITH FIRST MEAL OF THE DAY Rx Instructions: Hold if glucose less than 130 mg/dl pantoprazole [Protonix] 40 mg tablet,delayed release (DR/EC) 40 mg PO BID 90 Days Qty: 180 0RF sucralfate [Carafate] 1 gram tablet 1 g PO BID 30 Days Qty: 60 2RF Rx Instructions: Start BID administration after TID administration for 30 days has been completed. sucralfate 1 gram tablet 1 g PO TID 30 Days Qty: 90 0RF Rx Instructions: Start BID administration after 30 days of TID administration Primary Care Provider: Adrianna Nichols Referrals: Adrianna Nichols DO [Primary Care Provider] - 1-2 Days if not improving Activity Restrictions/Additional Instructions: Follow-up with your primary care physician. Your EKG and labs today were consistent with your normal baseline. No specific new or concerning changes. Return if you are feeling worse. Use your inhalers as needed. Disposition Disposition: Home, Self Care
--- NOTE | 2023-04-07 14:00 | EKG12_ITS ---
Test Reason : SOB Blood Pressure : / mmHG Vent. Rate : 111 BPM Atrial Rate : 111 BPM P-R Int : 208 ms QRS Dur : 086 ms QT Int : 328 ms P-R-T Axes : 000 -11 029 degrees QTc Int : 446 ms Sinus tachycardia Nonspecific ST abnormality Abnormal ECG Confirmed by Trell Kendrick ([id number]), technical writer and editor ZACKARY MARTINEZ ([id number]) on 04/25/2023 10:56:02 AM Referred By: Confirmed By:Trell Kendrick
[2023-04-07 14:19] VITALS: O2SAT 99
[2023-04-07 14:19] LABS: Absolute Lymphocyte Count 1.29 X10^3/uL (0.83-4.51); Absolute Neutrophil Count 3.7 X10^3/uL (2.0-7.7); Basophil# 0.03 X10^3/uL; Basophil% 0.5 % (0-1); Eosinophil# 0.34 X10^3/uL; Eosinophils% 5.8 % (0-5); Hematocrit 32.4 % (40-54); Lymphocyte # 1.29 X10^3/ul (0.83-4.51); Lymphocyte % 22.1 % (19-41); Mean Corp Hgb Conc 30.9 g/dL (32-36); Mean Corpuscular Hgb 27.5 pg (27.0-32.0); Mean Corpuscular Volume 89.3 fL (80-94); Monocyte# 0.43 X10^3/uL; Monocyte% 7.4 % (0-10); NRBC Flagged by Analyzer 0 % (0-5); Neutrophil # 3.72 X10^3/uL (2.7-7.7); Neutrophil % 63.9 % (47-70); Platelet Count 110 K/mm3 (150-450); RBC Distribution Width CV 15.7 % (11.6-14.6); RBC Distribution Width SD 50.7 fl (35.1-43.9); Red Blood Count 3.63 M/mm3 (4.6-6.2); White Blood Count 5.8 K/mm3 (4.4-11.0)
[2023-04-07 14:28] LABS: Anion Gap 5 (5-15); BUN 47 mg/dL (7-18); BUN/Creat Ratio 21.7 RATIO (10-20); Calcium,Total 9.2 mg/dL (8.5-10.1); Chloride 103 mmol/L (98-107); Creatinine, Serum 2.17 mg/dL (0.70-1.30); EST Glomerular Filtration Rate 31 mL/min (>60); Est Glom Filt Rate - Afr Amer 38 mL/min (>60); Estimated Creatinine Clearance 26.68 ml/min; Glucose 195 mg/dL (74-106); Potassium 4.3 mmol/L (3.5-5.1); Sodium Level 140 mmol/L (136-145); Troponin-I HS 36 pg/mL (3.0-78.0)
[2023-04-07 16:12] VITALS: BP 160/65; PULSE 91; O2SAT 99
== END 2023-04-07 16:12 | disposition home or self-care (01) ==
PROVIDERS: Emergency Provider Emergency Medicine; PCP Family Medicine; Visit Provider Emergency Medicine
DX: R06.00 Dyspnea, unspecified (principal); J44.9 Chronic obstructive pulmonary disease, unspecified; I13.0 Hypertensive heart and chronic kidney disease with heart failure and stage 1 through stage 4 chronic kidney disease, or unspecified chronic kidney disease; I50.30 Unspecified diastolic (congestive) heart failure; E11.22 Type 2 diabetes mellitus with diabetic chronic kidney disease; N18.9 Chronic kidney disease, unspecified; Z87.891 Personal history of nicotine dependence; I25.10 Atherosclerotic heart disease of native coronary artery without angina pectoris; E78.00 Pure hypercholesterolemia, unspecified; I25.2 Old myocardial infarction; Z86.73 Personal history of transient ischemic attack (TIA), and cerebral infarction without residual deficits; Z79.899 Other long term (current) drug therapy; E03.9 Hypothyroidism, unspecified; Z79.84 Long term (current) use of oral hypoglycemic drugs
CPT/HCPCS: 71045; 80048; 84484; 85025; 86850; 86900; 86901; 93005; 99283; A4216

== ENCOUNTER 2023-04-24 15:31 | Observation (INO) | payer MEDICARE, SELFPAY ==
[2023-04-24] VITALS (36 sets, daily range): BP systolic 90–176; BP diastolic 59–155; PULSE 92–113; RESP 15–29; TEMP 36.4–37.1; O2SAT 85–98; BMI 33.3; BMI 32.0; BMI 31.9
--- NOTE | 2023-04-24 16:29 | EKG12_ITS ---
Test Reason : DYSRHYTHMIA Blood Pressure : / mmHG Vent. Rate : 073 BPM Atrial Rate : 073 BPM P-R Int : 248 ms QRS Dur : 088 ms QT Int : 378 ms P-R-T Axes : 040 -01 036 degrees QTc Int : 416 ms Sinus rhythm with 1st degree A-V block Nonspecific T wave abnormality Abnormal ECG When compared with ECG of 24-APR-2023 15:38, MN interval has increased Vent. rate has decreased BY 38 BPM Confirmed by JOSHUA CARRILLO, JACOB ([id number]), manager editorial ZACKARY MARTINEZ ([id number]) on 05/01/2023 9:47:13 AM Referred By: Confirmed By:JACOB LEWIS MD
--- NOTE | 2023-04-24 16:44 | ED.VIS.DYS ---
HPI History of Present Illness Chief Complaint: Shortness of Breath Narrative Narrative: 82-year-old male with history of GI bleed, CHF, COPD, aortic stenosis, hyperlipidemia, CKD presenting with dyspnea. Patient states it started prior to arrival. 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 He states that somebody at [facility] who comes out to [place]. He states he want to have him do blood work in about 3 weeks and go to the [facility] to have something taken care of of at that time. The patient does not recall what is supposed to be done when he goes to the hospital. He states I can barely understand what he is saying. He states he started to feel short of breath when he was leaving the nephrology office and when he arrived home he was even more short of breath and could not make it up the stairs to his house so he called his friends to be taken to the emergency room. They called EMS. Patient wears 2 L of oxygen at baseline and is currently on 2 L of oxygen during the interview but states he was turned up to 4 L of oxygen prior to arrival. He denies chest pain or palpitations. He denies fevers, chills, cough. He denies leg swelling. He states he has been on torsemide in the past but was told this is because of some gout and he has been off of this for a long time. He states that he is on Lasix and has not missed any doses. Patient reports history of upper GI bleed recently in which he saw Dr. Joy. He states he just saw Dr. Joy yesterday in office to go over the images from surgery. He states he has not had any black or bloody stools that he knows of. [facility] Medical History Acute and chronic respiratory failure with hypoxia Aortic valve stenosis, acquired Atherosclerotic heart disease of [place] coronary artery without angina pectoris CAD (coronary artery disease) Cardiology follow-up encounter Chronic respiratory failure with hypoxia COPD (chronic obstructive pulmonary disease) Diabetes Diabetes mellitus, type 2 Diastolic CHF Former smoker Former tobacco use High cholesterol History of CAD (coronary artery disease) History of echocardiogram History of GI bleed History of left heart catheterization (LHC) (~03/15/22) HLD (hyperlipidemia) HTN (hypertension) Hypertension Hypothyroidism Kidney disease Loss of hearing Low iron Mild left ventricular hypertrophy Myocardial infarct No natural teeth Nonrheumatic aortic (valve) stenosis Obesity On home oxygen therapy Polyarthralgia Poor historian Shortness of breath on exertion Symptomatic anemia Syncope Thyroid disease TIA (transient ischemic attack) Wears glasses Home Medications atorvastatin 80 mg tablet 80 mg PO DAILY CHOLESTEROL 05/02/21 [History Last Taken 02/14/23] cholecalciferol (vitamin D3) 25 mcg (1,000 unit) capsule 25 mcg PO DAILY vitamin 05/02/21 [History Last Taken 02/15/23] ipratropium 0.5 mg-albuterol 3 mg (2.5 mg base)/3 mL nebulization soln 3 ml inhalation 4X/DAY PRN sob 05/02/21 [History Last Taken 02/15/23] liothyronine 25 mcg tablet 25 mcg PO DAILY THYROID 05/02/21 [History Last Taken 02/15/23] omega-3 fatty acids-vitamin E 1,000 mg capsule 2 cap PO BID SUPPLEMENT 05/02/21 [History Last Taken 02/15/23] tiotropium bromide 18 mcg capsule with inhalation device (Spiriva with HandiHaler) 18 mcg inhalation DAILY SOB 05/02/21 [History Last Taken 02/15/23] vitamins A,C,Z-sjhx-tlasom 4,296 mcg-226 mg-90 mg capsule (PreserVision AREDS) 1 cap PO BID vitamin 12/13/21 [History Last Taken 02/15/23] lisinopril 20 mg tablet (Zestril) 10 mg PO DAILY blood pressure 03/12/22 [History Last Taken 02/15/23] furosemide 40 mg tablet (Lasix) 40 mg PO DAILY diuretic #90 tabs 07/06/22 [Rx Last Taken 02/15/23] glimepiride 2 mg tablet 2 mg PO DAILY DM #3 tabs 03/09/23 [Rx Last Taken 02/15/23] pantoprazole 40 mg tablet,delayed release (Protonix) 40 mg PO BID 90 days #180 tabs 03/09/23 [Rx Last Taken Unknown] sucralfate 1 gram tablet 1 g PO TID 30 days #90 tabs 03/23/23 [Rx Last Taken Unknown] sucralfate 1 gram tablet (Carafate) 1 g PO BID 30 days #60 tabs 03/23/23 [Rx Last Taken Unknown] Allergy/AdvReac Type Severity Reaction Status Date / Time codeine AdvReac Upset Verified 04/07/23 13:44 Stomach Family History Mother CVA (cerebral vascular accident) Heart disease Myocardial infarction Hx of CABG Hypertension Father CVA (cerebral vascular accident) Heart disease Surgical History S/P cataract extraction Social History household members: none housing: house Smoking Status: Former smoker how long ago did patient quit smoking: Quit 2010, prior 1 ppd since teen. alcohol intake: former year quit: 2010 substance use type: does not use ROS ROS ED Constitutional Constitutional ED: Denies chills, fever(s) or sweats Eyes Eyes: Denies blurry vision or change in vision ENT ENT ED: Denies ear pain or sore throat Cardiovascular Cardiovascular: Denies chest pain, palpitations or racing heartbeat Respiratory/Chest Respiratory/Chest: Reports dyspnea and dyspnea on exertion; Denies cough or sputum Gastrointestinal Gastrointestinal: Denies abdominal pain, constipation, diarrhea, nausea or vomiting Genitourinary Genitourinary ED: Denies dysuria, hematuria or urinary frequency Musculoskeletal Musculoskeletal: Denies arthralgias, myalgias or neck pain Integumentary Denies abscess, Abrasions or rash Neurologic Neurologic: Denies headache(s), paresthesias or weakness Psychiatric Psychiatric: Denies anxiety, depression, suicidal ideation or suicidal thoughts Endocrine Endocrinology: Denies polydipsia or polyuria EXAM Physical Exam Const Vital Signs: 04/24/23 15:35 04/24/23 15:39 04/24/23 15:39 Temperature 98.7 F 98.7 F Temperature Source Temporal Temporal Pulse Rate 113 H 113 H Respiratory Rate 22 H 24 H Respiratory Effort Short of Breath Respiratory Depth Shallow Respiratory Pattern Tachypnea Blood Pressure 175/65 H 175/65 H Blood Pressure Mean 101 101 Pulse Ox 95 97 Oxygen Delivery Method Nasal Cannula Nasal Cannula Nasal Cannula Oxygen Flow Rate (L/min) 4 4 4 04/24/23 18:29 04/24/23 19:03 04/24/23 16:27 Temperature 97.9 F Temperature Source Pulse Rate 92 103 H Respiratory Rate 20 H 22 H Respiratory Effort Respiratory Depth Respiratory Pattern Blood Pressure 168/67 H Blood Pressure Mean 100 Pulse Ox 97 96 Oxygen Delivery Method Nasal Cannula Oxygen Flow Rate (L/min) 4 04/24/23 16:30 04/24/23 16:40 04/24/23 16:45 Temperature Temperature Source Pulse Rate 103 H 109 H 105 H Respiratory Rate 24 H 25 H 29 H Respiratory Effort Respiratory Depth Respiratory Pattern Blood Pressure 152/59 H 165/63 H Blood Pressure Mean 87 93 Pulse Ox 93 94 Oxygen Delivery Method Oxygen Flow Rate (L/min) 04/24/23 16:50 04/24/23 17:00 04/24/23 17:10 Temperature Temperature Source Pulse Rate 102 H 102 H 99 Respiratory Rate 25 H 27 H 22 H Respiratory Effort Respiratory Depth Respiratory Pattern Blood Pressure 170/64 H Blood Pressure Mean 96 Pulse Ox 96 96 97 Oxygen Delivery Method Oxygen Flow Rate (L/min) 04/24/23 17:15 04/24/23 17:20 04/24/23 17:30 Temperature Temperature Source Pulse Rate 100 100 101 H Respiratory Rate 25 H 25 H 28 H Respiratory Effort Respiratory Depth Respiratory Pattern Blood Pressure 176/65 H Blood Pressure Mean 98 Pulse Ox 94 96 96 Oxygen Delivery Method Oxygen Flow Rate (L/min) 04/24/23 17:31 04/24/23 17:40 04/24/23 17:45 Temperature Temperature Source Pulse Rate 100 Respiratory Rate 15 Respiratory Effort Respiratory Depth Respiratory Pattern Blood Pressure 169/65 H 165/62 H Blood Pressure Mean 96 92 Pulse Ox 96 92 96 Oxygen Delivery Method Oxygen Flow Rate (L/min) 04/24/23 17:50 04/24/23 18:00 04/24/23 18:02 Temperature Temperature Source Pulse Rate Respiratory Rate Respiratory Effort Respiratory Depth Respiratory Pattern Blood Pressure 159/136 H Blood Pressure Mean 143 Pulse Ox 95 95 92 Oxygen Delivery Method Oxygen Flow Rate (L/min) 04/24/23 18:10 04/24/23 18:15 04/24/23 18:21 Temperature Temperature Source Pulse Rate Respiratory Rate Respiratory Effort Respiratory Depth Respiratory Pattern Blood Pressure 152/81 H Blood Pressure Mean 103 Pulse Ox 96 85 Oxygen Delivery Method Oxygen Flow Rate (L/min) 04/24/23 18:30 04/24/23 18:40 04/24/23 18:45 Temperature Temperature Source Pulse Rate 101 H 99 97 Respiratory Rate 26 H 25 H 25 H Respiratory Effort Respiratory Depth Respiratory Pattern Blood Pressure 175/70 H 168/64 H Blood Pressure Mean 100 95 Pulse Ox 96 97 97 Oxygen Delivery Method Oxygen Flow Rate (L/min) 04/24/23 18:50 04/24/23 19:00 04/24/23 19:10 Temperature Temperature Source Pulse Rate 97 97 105 H Respiratory Rate 22 H 23 H 19 H Respiratory Effort Respiratory Depth Respiratory Pattern Blood Pressure 168/67 H Blood Pressure Mean 96 Pulse Ox 97 97 95 Oxygen Delivery Method Oxygen Flow Rate (L/min) 04/24/23 19:15 04/24/23 19:20 04/24/23 19:30 Temperature Temperature Source Pulse Rate 102 H 109 H 96 Respiratory Rate 23 H 26 H 27 H Respiratory Effort Respiratory Depth Respiratory Pattern Blood Pressure 169/155 H 136/108 H Blood Pressure Mean 161 115 Pulse Ox 96 92 98 Oxygen Delivery Method Oxygen Flow Rate (L/min) 04/24/23 19:40 Temperature Temperature Source Pulse Rate 99 Respiratory Rate 27 H Respiratory Effort Respiratory Depth Respiratory Pattern Blood Pressure Blood Pressure Mean Pulse Ox 98 Oxygen Delivery Method Oxygen Flow Rate (L/min) MDM MDM MDM Narrative Medical decision making narrative: Patient presenting with shortness of breath. Differential includes but is not limited to ACS, aortic dissection, pneumonia, pneumothorax, muscle strain, costochondritis, dehydration, acute blood loss anemia, GI bleed, COVID, influenza, RSV. CBC will be obtained to assess white blood cell count, hemoglobin, platelets. BMP to assess renal function, electrolytes, glucose. High-sensitivity troponin and EKG to assess for ischemia. BNP to assess for CHF. Chest x-ray to rule out pNeumonia or CHF. Renal function and electrolytes near baseline as well. Glucose 200 without anion gap. High-sensitivity troponin 47. BNP 143.1. EKG on my interpretation shows sinus rhythm at 100 bpm without sign of ischemic change. Chest x-ray on my interpretation shows interstitial prominence. Patient declines anything for pain or nausea. CBC shows normal white blood cell count of 5.6. Hemoglobin 9.3. BNP is elevated today at 143.1. Patient ambulated in hallway and pulse ox dropped to 87% he was very dyspneic and weak. Given this we will admit him for CHF exacerbation. He is given 40 mg of Lasix. Discussed with hospitalist for admission. Impression: 1 CHF exacerbation 2. Hypoxic respiratory failure 3. Debility Lab Data Attestation: I reviewed the patient's lab results. Labs: Laboratory Results - last 24 hr 04/24/23 15:55 WBC 5.6 RBC 3.36 L Hgb 9.3 L Hct 30.1 L MCV 89.6 MCH 27.7 MCHC 30.9 L RDW Std Deviation 48.0 H RDW Coeff of John 14.7 H Plt Count 103 L MPV 11.9 Immature Gran % (Auto) 0.200 Neut % (Auto) 76.7 H Lymph % (Auto) 12.0 L [place] % (Auto) 6.1 Eos % (Auto) 4.5 Baso % (Auto) 0.5 Absolute Neuts (auto) 4.3 Absolute Lymphs (auto) 0.67 L Nucleated RBC % 0 Sodium 145 Potassium 4.1 Chloride 108 H Carbon Dioxide 33.0 H Anion Gap 4 L BUN 43 H Creatinine 2.00 H Estim Creat Clear Calc 29.00 Est GFR (MDRD) Af Amer 41 L Est GFR (MDRD) Non-Af 34 L BUN/Creatinine Ratio 21.5 H Glucose 200 H Calcium 9.3 Troponin I High Sens 47 B-Natriuretic Peptide 143.1 H Radiography Diagnostic Testing: Clinical Impression(s) from Imaging Studies Chest X-Ray 04/24/23 17:08 IMPRESSION: Chronic prominence of the lung interstitium. Electronically Signed: John Martinez, at 17:33 EST Reading Location ID and State: [address] [place] [address] Tel , Service support , Discharge Plan Disposition Disposition: Acute Care Hospital [facility] Discharge Date/Time: 04/24/23 19:57
[2023-04-24 16:48] LABS: Absolute Lymphocyte Count 0.67 X10^3/uL (0.83-4.51); Absolute Neutrophil Count 4.3 X10^3/uL (2.0-7.7); Basophil# 0.03 X10^3/uL; Basophil% 0.5 % (0-1); Eosinophil# 0.25 X10^3/uL; Eosinophils% 4.5 % (0-5); Hematocrit 30.1 % (40-54); Hemoglobin 9.3 g/dL (13.0-16.5); Lymphocyte # 0.67 X10^3/ul (0.83-4.51); Mean Corp Hgb Conc 30.9 g/dL (32-36); Mean Corpuscular Hgb 27.7 pg (27.0-32.0); Mean Corpuscular Volume 89.6 fL (80-94); Mean Platelet Vol. 11.9 fl (6.2-12.0); Monocyte# 0.34 X10^3/uL; Monocyte% 6.1 % (0-10); NRBC Flagged by Analyzer 0 % (0-5); Neutrophil % 76.7 % (47-70); Platelet Count 103 K/mm3 (150-450); RBC Distribution Width CV 14.7 % (11.6-14.6); Red Blood Count 3.36 M/mm3 (4.6-6.2); White Blood Count 5.6 K/mm3 (4.4-11.0)
[2023-04-24 17:01] LABS: Anion Gap 4 (5-15); BUN 43 mg/dL (7-18); BUN/Creat Ratio 21.5 RATIO (10-20); Calcium,Total 9.3 mg/dL (8.5-10.1); Chloride 108 mmol/L (98-107); EST Glomerular Filtration Rate 34 mL/min (>60); Est Glom Filt Rate - Afr Amer 41 mL/min (>60); Glucose 200 mg/dL (74-106); Potassium 4.1 mmol/L (3.5-5.1); Sodium Level 145 mmol/L (136-145); Troponin-I HS 47 pg/mL (3.0-78.0)
--- NOTE | 2023-04-24 17:08 | RAD_ITS ---
INDICATION: chest pain EXAMINATION/TECHNIQUE: X-RAY - XR Chest 1 View COMPARISON: April 07, 2023 FINDINGS: LINES/DEVICES: None. LUNGS: There is prominence of the lung interstitium appearing chronic at the lung bases. Otherwise lungs appear clear. MEDIASTINUM AND CARDIOVASCULAR STRUCTURES: Cardiac silhouette not enlarged. Central airways and mediastinal contour are unremarkable. BONES AND SOFT TISSUES: Unremarkable. RAD/Chest 1 View (Portable) IMPRESSION: Chronic prominence of the lung interstitium. Electronically Signed: John Martinez, at 17:33 EST ,
[2023-04-24 17:09] LABS: BNP,B-Type NATRIURETIC PEPTIDE 143.1 pg/mL (0-100)
[2023-04-24] MEDS: Furosemide 40 MG/4 ML Vial IV (19:24)
--- NOTE | 2023-04-24 19:49 | HP.PCM.HOS_ITS ---
[facility] - General General Date of Admission: 04/24/23 Date of Service: 04/24/23 Chief Complaint: Shortness of breath HPI Narrative BEULAH BRIGHT, is a 82 M who presented to the emergency department at [facility] on 04/24/2023 complaining of shortness of breath. Patient stated his shortness of breath had started today after he walked out of his nephrology office appointment. He stated he was barely able to make at home and then decided to come the emergency department because he was so short of breath. He indicated he was fine before that. He typically sleeps in a recliner and has been doing so for 6 years as he was taking care of his who was in hospice. She has since been . He indicates he had multiple hospitalizations since somebody took him off his torsemide and replaced it with Lasix. He feels that the Lasix does not work as well. I did ask him why they took him off his torsemide he stated it was because it gave him gout. He reported recently his primary care physician instructed him to take 3 tablets of Lasix a day but this did not work either. He did not notice any increased urinary output with the increased dose of Lasix. He is not sure if he is gained weight as he is not able to see the numbers on his scale anymore. He denies any worsening swelling and again he sleeps in a recliner so he does not complain any paroxysmal nocturnal dyspnea or orthopnea. He is on chronic oxygen at 2 L and is compliant with this. He states he does not have a known history of sleep apnea. He had a recent echocardiogram done in February 2023 that demonstrated mild concentric LVH, left ventricular EF of 65% with moderate diffuse aortic valve calcification and moderate aortic stenosis with mild aortic valve insufficiency. Vital signs on presentation showed a temperature of 98.7, heart rate 113, blood pressure was 175/65, respiratory rate was 22 and oxygen saturations were 95% on 4 L nasal cannula. I do not have an oxygen saturation on his baseline of 2 L. His CBC shows a normal white count with a stable anemia having a hemoglobin of 9.3 and chronic thrombocytopenia with a platelet count of 103,000 which is his baseline. He has a minimal left shift with a 76.7% neutrophilia. His chemistry panel shows chronic stable renal dysfunction having a BUN of 43 and a serum creatinine of 2.0. Serum glucose was 200. Troponin was 47 and his BNP was 143.1. Given his obesity his BNP is likely higher when adjusted for his weight. Chest x-ray is consistent with bilateral congestion and prominence in the interstitium. EKG shows first-degree heart block with a prolonged ND interval, normal QT interval with mild tachycardia and no ST-T wave changes concerning for acute ischemia. He was given IV Lasix 40 mg x 1 dose in the emergency department and request for admission was made. As noted the patient is concerned that his Lasix is not working so I will transition to Bumex and give another 2 mg at the time of admission. [facility] Medical History Acute and chronic respiratory failure with hypoxia Aortic valve stenosis, acquired Atherosclerotic heart disease of [place] coronary artery without angina pectoris CAD (coronary artery disease) Cardiology follow-up encounter Chronic respiratory failure with hypoxia COPD (chronic obstructive pulmonary disease) Diabetes Diabetes mellitus, type 2 Diastolic CHF Former smoker Former tobacco use High cholesterol History of CAD (coronary artery disease) History of echocardiogram History of GI bleed History of left heart catheterization (LHC) (~03/15/22) HLD (hyperlipidemia) HTN (hypertension) Hypertension Hypothyroidism Kidney disease Loss of hearing Low iron Mild left ventricular hypertrophy Myocardial infarct No natural teeth Nonrheumatic aortic (valve) stenosis Obesity On home oxygen therapy Polyarthralgia Poor historian Shortness of breath on exertion Symptomatic anemia Syncope Thyroid disease TIA (transient ischemic attack) Wears glasses Home Medications atorvastatin 80 mg tablet 80 mg PO DAILY CHOLESTEROL 05/02/21 [History Last Taken 02/14/23] cholecalciferol (vitamin D3) 25 mcg (1,000 unit) capsule 25 mcg PO DAILY vitamin 05/02/21 [History Last Taken 02/15/23] ipratropium 0.5 mg-albuterol 3 mg (2.5 mg base)/3 mL nebulization soln 3 ml inhalation 4X/DAY PRN sob 05/02/21 [History Last Taken 02/15/23] liothyronine 25 mcg tablet 25 mcg PO DAILY THYROID 05/02/21 [History Last Taken 02/15/23] omega-3 fatty acids-vitamin E 1,000 mg capsule 2 cap PO BID SUPPLEMENT 05/02/21 [History Last Taken 02/15/23] tiotropium bromide 18 mcg capsule with inhalation device (Spiriva with HandiHaler) 18 mcg inhalation DAILY SOB 05/02/21 [History Last Taken 02/15/23] vitamins A,C,C-gabk-ffzkud 4,296 mcg-226 mg-90 mg capsule (PreserVision AREDS) 1 cap PO BID vitamin 12/13/21 [History Last Taken 02/15/23] lisinopril 20 mg tablet (Zestril) 10 mg PO DAILY blood pressure 03/12/22 [History Last Taken 02/15/23] furosemide 40 mg tablet (Lasix) 40 mg PO DAILY diuretic #90 tabs 07/06/22 [Rx Last Taken 02/15/23] glimepiride 2 mg tablet 2 mg PO DAILY DM #3 tabs 03/09/23 [Rx Last Taken 02/15/23] pantoprazole 40 mg tablet,delayed release (Protonix) 40 mg PO BID 90 days #180 tabs 03/09/23 [Rx Last Taken Unknown] sucralfate 1 gram tablet 1 g PO TID 30 days #90 tabs 03/23/23 [Rx Last Taken Unknown] sucralfate 1 gram tablet (Carafate) 1 g PO BID 30 days #60 tabs 03/23/23 [Rx Last Taken Unknown] Allergy/AdvReac Type Severity Reaction Status Date / Time codeine AdvReac Upset Verified 04/07/23 13:44 Stomach Family History Mother CVA (cerebral vascular accident) Heart disease Myocardial infarction Hx of CABG Hypertension Father CVA (cerebral vascular accident) Heart disease Surgical History S/P cataract extraction Social History household members: none housing: house Smoking Status: Former smoker how long ago did patient quit smoking: Quit 2010, prior 1 ppd since teen. alcohol intake: former year quit: 2010 substance use type: does not use ROS Constitutional Constitutional: Reports fatigue and weakness; Denies anorexia, change in weight, chills, fever(s), malaise, night sweats or other Eyes Eyes: Denies blurry vision, change in eye color, change in vision, discharge from eye(s), double vision, erythema, eye pain, loss of vision or other ENT HEENT: Reports abnormal hearing; Denies dysphagia, ear pain, epistaxis, headache(s), hearing loss, nasal congestion, nasal discharge, post nasal drip, sinus pressure, sore throat or other Cardiovascular Cardiovascular: Reports dyspnea on exertion; Denies chest pain, claudication, edema, lightheadedness, orthopnea, palpitations, paroxysmal nocturnal dyspnea, rapid heart rate, syncope or other Respiratory/Chest Respiratory/Chest: Reports dyspnea, shortness of breath at rest and shortness of breath with exertion; Denies cough, excessive phlegm production, hemoptysis, p roductive cough, wheezing or other Gastrointestinal Gastrointestinal: Denies abdominal pain, coffee ground emesis, constipation, diarrhea, dyspepsia, hematemesis, hematochezia, loose stools, melena, nausea, vomiting or other Genitourinary Genitourinary: Denies burning urination, difficulty urinating, dysuria, hematuria, nocturia, urinary frequency, urinary hesitancy, urinary incontinence, urinary urgency or other Musculoskeletal Musculoskeletal: Reports back pain, joint pain and joint stiffness; Denies arthralgias, joint swelling, myalgias, neck pain or other Neurologic Neurologic: Denies abnormal gait, abnormal speech, confusion, disequilibrium, dizziness, focal weakness, headache(s), numbness, paresthesias, seizure-like activity, seizures, syncope, tingling, tremor(s) or other Psychiatric Psychiatric: Denies anxiety, depression, homicidal ideation, suicidal ideation or other Endocrine Endocrinology: Denies change in body appearance, cold intolerance, excessive sweating, heat intolerance, polydipsia, polyuria or other Hematologic/Lymphatic Hematologic/Lymphatic: Denies anemia, easy bleeding, easy bruising, lymphadenopathy or other Allergic/Immunologic Allergic/Immunologic: Denies rhinitis, hives, eczemia, asthma or other Vital Signs Vital Signs Vital Signs: 04/24/23 15:35 04/24/23 15:39 04/24/23 15:39 Temperature 98.7 F 98.7 F Temperature Source Temporal Temporal Pulse Rate 113 H 113 H Respiratory Rate 22 H 24 H Respiratory Effort Short of Breath Respiratory Depth Shallow Respiratory Pattern Tachypnea Blood Pressure 175/65 H 175/65 H Blood Pressure Mean 101 101 Pulse Ox 95 97 Oxygen Delivery Method Nasal Cannula Nasal Cannula Nasal Cannula Oxygen Flow Rate (L/min) 4 4 4 04/24/23 18:29 04/24/23 19:03 04/24/23 16:27 Temperature 97.9 F Temperature Source Pulse Rate 92 103 H Respiratory Rate 20 H 22 H Respiratory Effort Respiratory Depth Respiratory Pattern Blood Pressure 168/67 H Blood Pressure Mean 100 Pulse Ox 97 96 Oxygen Delivery Method Nasal Cannula Oxygen Flow Rate (L/min) 4 04/24/23 16:30 04/24/23 16:40 04/24/23 16:45 Temperature Temperature Source Pulse Rate 103 H 109 H 105 H Respiratory Rate 24 H 25 H 29 H Respiratory Effort Respiratory Depth Respiratory Pattern Blood Pressure 152/59 H 165/63 H Blood Pressure Mean 87 93 Pulse Ox 93 94 Oxygen Delivery Method Oxygen Flow Rate (L/min) 04/24/23 16:50 04/24/23 17:00 04/24/23 17:10 Temperature Temperature Source Pulse Rate 102 H 102 H 99 Respiratory Rate 25 H 27 H 22 H Respiratory Effort Respiratory Depth Respiratory Pattern Blood Pressure 170/64 H Blood Pressure Mean 96 Pulse Ox 96 96 97 Oxygen Delivery Method Oxygen Flow Rate (L/min) 04/24/23 17:15 04/24/23 17:20 04/24/23 17:30 Temperature Temperature Source Pulse Rate 100 100 101 H Respiratory Rate 25 H 25 H 28 H Respiratory Effort Respiratory Depth Respiratory Pattern Blood Pressure 176/65 H Blood Pressure Mean 98 Pulse Ox 94 96 96 Oxygen Delivery Method Oxygen Flow Rate (L/min) 04/24/23 17:31 04/24/23 17:40 04/24/23 17:45 Temperature Temperature Source Pulse Rate 100 Respiratory Rate 15 Respiratory Effort Respiratory Depth Respiratory Pattern Blood Pressure 169/65 H 165/62 H Blood Pressure Mean 96 92 Pulse Ox 96 92 96 Oxygen Delivery Method Oxygen Flow Rate (L/min) 04/24/23 17:50 04/24/23 18:00 04/24/23 18:02 Temperature Temperature Source Pulse Rate Respiratory Rate Respiratory Effort Respiratory Depth Respiratory Pattern Blood Pressure 159/136 H Blood Pressure Mean 143 Pulse Ox 95 95 92 Oxygen Delivery Method Oxygen Flow Rate (L/min) 04/24/23 18:10 04/24/23 18:15 04/24/23 18:21 Temperature Temperature Source Pulse Rate Respiratory Rate Respiratory Effort Respiratory Depth Respiratory Pattern Blood Pressure 152/81 H Blood Pressure Mean 103 Pulse Ox 96 85 Oxygen Delivery Method Oxygen Flow Rate (L/min) 04/24/23 18:30 04/24/23 18:40 04/24/23 18:45 Temperature Temperature Source Pulse Rate 101 H 99 97 Respiratory Rate 26 H 25 H 25 H Respiratory Effort Respiratory Depth Respiratory Pattern Blood Pressure 175/70 H 168/64 H Blood Pressure Mean 100 95 Pulse Ox 96 97 97 Oxygen Delivery Method Oxygen Flow Rate (L/min) 04/24/23 18:50 04/24/23 19:00 04/24/23 19:10 Temperature Temperature Source Pulse Rate 97 97 105 H Respiratory Rate 22 H 23 H 19 H Respiratory Effort Respiratory Depth Respiratory Pattern Blood Pressure 168/67 H Blood Pressure Mean 96 Pulse Ox 97 97 95 Oxygen Delivery Method Oxygen Flow Rate (L/min) 04/24/23 19:15 04/24/23 19:20 04/24/23 19:30 Temperature Temperature Source Pulse Rate 102 H 109 H 96 Respiratory Rate 23 H 26 H 27 H Respiratory Effort Respiratory Depth Respiratory Pattern Blood Pressure 169/155 H 136/108 H Blood Pressure Mean 161 115 Pulse Ox 96 92 98 Oxygen Delivery Method Oxygen Flow Rate (L/min) 04/24/23 19:40 04/24/23 19:45 Temperature Temperature Source Pulse Rate 99 107 H Respiratory Rate 27 H 27 H Respiratory Effort Respiratory Depth Respiratory Pattern Blood Pressure 90/72 Blood Pressure Mean 79 Pulse Ox 98 94 Oxygen Delivery Method Oxygen Flow Rate (L/min) Weight Weight: 90.9 kg Body Mass Index (BMI) 33.3 Physical Exam Const alert, oriented x3 and well nourished; Negative for no apparent distress, average body habitus or healthy appearing Constitutional Narrative: Obese, elderly, white male, sitting up on the edge of the bed, patient with significant conversational dyspnea but no signs of respiratory extremis General Appearance: cooperative HEENT normocephalic, head/scalp atraumatic and moist oral mucous membranes; Negative for hearing grossly normal bilaterally HEENT Narrative: Edentulous, Mallampati is 2, no thrush, moderate hearing loss Eyes PERRL and EOMs intact bilaterally Eyes Narrative: Mild conjunctival pallor bilaterally, no scleral icterus Neck no lymphadenopathy, supple and No no JVD Neck Narrative: Neck is short and thick, trachea is midline, positive JVD, positive hepatojugular reflux Resp No normal respiratory effort, no retractions, no use of accessory muscles and No clear to auscultation bilaterally Resp Narrative: Crackles at bases bilaterally with diminished breath sounds at the apex is bilaterally, patient is tachypneic and has significant conversational dyspnea Auscultation: crackles; Negative for rhonchi or wheezes Cardio regular rhythm, S1 normal heart sound, S2 normal heart sound, no murmurs, no rub, no gallops and no clicks Cardio Narrative: Mild tachycardia GI normal to inspection, nondistended, normoactive bowel sounds, soft to palpation and non-tender Extremity Extremity Narrative: Trace bilateral lower extremity pitting edema, no cyanosis or clubbing Skin no rashes or lesions noted, no wounds, skin turgor normal, no jaundice, no petechiae and no mottling Neuro oriented x3, CN's II-XII intact bilaterally, moves all extremities and no focal motor deficits Neuro Narrative: Mild to moderate generalized weakness noted proximally greater than distally Speech: speech normal Psych affect normal Psych Narrative: Very pleasant, eye contact is good, patient interacts normally Results Lab / Micro Data 04/24/23 15:55 04/24/23 15:55 Labs: Laboratory Results - last 24 hr 04/24/23 15:55: WBC 5.6, RBC 3.36 L, Hgb 9.3 L, Hct 30.1 L, MCV 89.6, MCH 27.7, MCHC 30.9 L, RDW Std Deviation 48.0 H, RDW Coeff of John 14.7 H, Plt Count 103 L, MPV 11.9, Immature Gran % (Auto) 0.200, Neut % (Auto) 76.7 H, Lymph % (Auto) 12.0 L, [place] % (Auto) 6.1, Eos % (Auto) 4.5, Baso % (Auto) 0.5, Absolute Neuts (auto) 4.3, Absolute Lymphs (auto) 0.67 L, Nucleated RBC % 0, Sodium 145, Potassium 4.1, Chloride 108 H, Carbon Dioxide 33.0 H, Anion Gap 4 L, BUN 43 H, Creatinine 2.00 H, Estim Creat Clear Calc 29.00, Est GFR (MDRD) Af Amer 41 L, Est GFR (MDRD) Non-Af 34 L, BUN/Creatinine Ratio 21.5 H, Glucose 200 H, Calcium 9.3, Troponin I High Sens 47, B-Natriuretic Peptide 143.1 H Micro: Microbiology 04/24/23 16:54 Mucosa - Nasopharyngeal SARS-CoV-2, Influenza & RSV (PCR) - Final Imaging Radiology Impression Chest X-Ray 04/24/23 17:08 IMPRESSION: Chronic prominence of the lung interstitium. Electronically Signed: John Martinez, at 17:33 EST Reading Location ID and State: formerly [facility] / [place] Tel , Service support , Assessment & Plan Assessment/Plan (1) Acute dyspnea: (2) Acute on chronic heart failure with preserved ejection fraction (HFpEF): (3) Elevated brain natriuretic peptide (BNP) level: (4) Anemia: QUALIFIERS: Anemia type: iron deficiency Iron deficiency anemia type: other iron deficiency Qualified Code(s): D50.8 - Other iron deficiency anemias (5) Hypoxia: PLAN: Plan Acute hypoxia secondary to acute on chronic heart failure with preserved ejection fraction -Patient desatted into the 80s on his baseline 2 L with exertion and has significant conversational dyspnea -Oxygen uptitrated to 4 L and patient stable -Wean oxygen as able with diuresis -Patient last echo done 2022 showed EF of 65%, mild concentric LVH, and mild to moderate aortic valve stenosis with mild aortic valve insufficiency -Patient states ever since they took him off his torsemide and placed him on furosemide he has had multiple admissions for heart failure -Patient indicates he watches his diet at home and takes an low-sodium -Bumex 2 mg IV push twice daily -Would maybe suggest transitioning him to Bumex at discharge rather than Lasix as this has not been beneficial for him -Will check albumin level as Lasix needs to find to albumin to work effectively and Bumex does not -Check lipids -Will hold on repeat echocardiogram since he just had one in February -Daily weights -Accurate I's and O's -Sodium and fluid restricted diet Chronic anemia -Hemoglobin is stable at 9.3 -Has had extensive workup and was 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 pylori negative -EGD and capsule endoscopy done in March 2023 that noted no esophageal abnormalities but dilation of the upper esophagus was performed due to stricture and capsule endoscopy placed with capsule endoscopy revealing no signs of bleeding -Continue home Protonix 40 mg p.o. twice daily -Continue home Carafate -Continue outpatient follow-up with Chronic thrombocytopenia -Etiology is unclear however I do suspect he may have some liver dysfunction related to MCBRIDE -Did have an abdominal ultrasound done 2021 that showed hepatomegaly and fatty infiltration -Recommend outpatient follow-up with GI Hypothyroidism -Continue home liothyronine -Check TSH Chronic hypoxic respiratory failure secondary to COPD -Is dependent on 2 L at baseline -Continue home inhalers and as needed nebulizers -Wean oxygen as able -Ongoing outpatient follow-up with pulmonary medicine as scheduled CAD/HTN/HPL -Patient has nonobstructive CAD and is not on any antiplatelet therapy -Recurrent bleeding has been an issue -Continue home atorvastatin -Check lipids Hold home Lasix -Continue home lisinopril DM-2 -Hold glimepiride -SSI -Cardiac/carb controlled diet -Accu-Cheks as ordered Obesity -BMI is 33.3 -Recommend weight loss -Complicates treatment, prognosis, outcomes DVT prophylaxis -Heparin 3 times daily CODE STATUS -DNR CCA with no intubation as discussed prior to admission with patient Charges/Coding Visit Charges Inpatient E&M: 49221 Init Hosp L2
[2023-04-24] MEDS: Heparin Injection (Vial) 5,000 UNIT/ML VIAL 5000 UNIT SC (21:31)
[2023-04-24] MEDS: Bumetanide 1 MG/4 ML Vial 2 MG IV (21:31)
[2023-04-24] MEDS: 0.9% Saline Lock 10 ML Syringe IV (21:32)
[2023-04-24] MEDS: Pantoprazole Sodium 40 MG Tablet PO (21:32)
[2023-04-24 21:47] LABS: Troponin-I HS 239 pg/mL (3.0-78.0)
[2023-04-24 23:23] LABS: Troponin-I HS 282 pg/mL (3.0-78.0)
[2023-04-25] VITALS (11 sets, daily range): BP systolic 131–136; BP diastolic 52–60; PULSE 82–103; RESP 16–24; TEMP 36.4–36.7; O2SAT 96–98; BMI 32.0
[2023-04-25] MEDS: Ipratropium/Albuterol Sulfate 3 ML AMPUL.NEB INHALATION ×5 (03:26→19:23)
[2023-04-25] MEDS: Liothyronine 5 MCG Tablet 25 MCG PO (05:17)
[2023-04-25] MEDS: Sucralfate 1 GM Tablet PO ×3 (05:18→16:24)
[2023-04-25] MEDS: Heparin Injection (Vial) 5,000 UNIT/ML VIAL 5000 UNIT SC ×3 (05:19→20:06)
[2023-04-25 06:34] LABS: Bedside Glucose 130 mg/dL (74-106)
[2023-04-25 06:51] LABS: Troponin-I HS 334 pg/mL (3.0-78.0)
[2023-04-25 07:52] LABS: Absolute Lymphocyte Count 1.16 X10^3/uL (0.83-4.51); Absolute Neutrophil Count 4.6 X10^3/uL (2.0-7.7); Basophil# 0.04 X10^3/uL; Basophil% 0.6 % (0-1); Eosinophil# 0.29 X10^3/uL; Eosinophils% 4.4 % (0-5); Hemoglobin 8.9 g/dL (13.0-16.5); Lymphocyte # 1.16 X10^3/ul (0.83-4.51); Lymphocyte % 17.5 % (19-41); Mean Corp Hgb Conc 30.7 g/dL (32-36); Mean Corpuscular Hgb 27.1 pg (27.0-32.0); Mean Corpuscular Volume 88.4 fL (80-94); Mean Platelet Vol. 11.3 fl (6.2-12.0); Monocyte# 0.55 X10^3/uL; Monocyte% 8.3 % (0-10); NRBC Flagged by Analyzer 0 % (0-5); Neutrophil # 4.57 X10^3/uL (2.7-7.7); Neutrophil % 68.9 % (47-70); Platelet Count 113 K/mm3 (150-450); RBC Distribution Width CV 14.6 % (11.6-14.6); RBC Distribution Width SD 47.5 fl (35.1-43.9); Red Blood Count 3.28 M/mm3 (4.6-6.2); White Blood Count 6.6 K/mm3 (4.4-11.0)
[2023-04-25 08:41] LABS: ALB/GLOB Ratio 0.9 RATIO (0.9-2.4); AST(SGOT) 17 U/L (15-37); Alanine Aminotransfer ALT/SGPT 13 U/L (16-61); Albumin, Serum 3.3 g/dL (3.2-5.0); Alkaline Phosphatase 80 U/L (45-117); Anion Gap 8 (5-15); BUN 45 mg/dL (7-18); BUN/Creat Ratio 23.4 RATIO (10-20); Calcium,Total 9.4 mg/dL (8.5-10.1); Chloride 104 mmol/L (98-107); Cholesterol 170 mg/dL (200); Creatinine, Serum 1.92 mg/dL (0.70-1.30); EST Glomerular Filtration Rate 36 mL/min (>60); Est Glom Filt Rate - Afr Amer 43 mL/min (>60); Estimated Creatinine Clearance 29.62 ml/min; Globulin 3.7 g/dL (2.2-4.2); Glucose 129 mg/dL (74-106); High Density Lipoprotein 33 mg/dL; Magnesium 1.6 mg/dL (1.6-2.6); Phosphorus 2.4 mg/dL (2.5-4.9); Potassium 3.9 mmol/L (3.5-5.1); Sodium Level 144 mmol/L (136-145); Thyroid Stim Hormone (TSH) 3.43 uIU/mL (0.358-3.74); Triglycerides 216 mg/dL; Very Low Density Lipoprotein 43 mg/dL (5-40)
--- NOTE | 2023-04-25 08:41 | CON.PCM.CA_ITS ---
Assessment & Plan Assessment/Plan (1) Acute on chronic heart failure with preserved ejection fraction (HFpEF): PLAN: The patient presented with what appears to be acute on chronic heart failure with preserved ejection fraction. He was profoundly hypoxic and had chest x-ray consistent with hilar edema. He is much improved with supplemental oxygen and IV diuresis. The patient was not taking by his home med list beta- greta and had been switched from furosemide to Lasix due to gout. He is unable to weigh himself in his home environment as his vision is too poor to read the scales. He does have a daughter that helps him with his meds. The patient has changed his cardiovascular care from the [facility] to [place] where he sees a web art director from [facility]. The patient also carries a history of chronic renal insufficiency with a creatinine clearance of 34. He also had a recent GI bleed and is no longer on aspirin or any antiplatelet therapy. The patient also carries a history of carotid artery disease with bilateral stenoses greater than 70% on an ultrasound done February 2023. The patient's last echocardiogram showed left-ventricular ejection fraction of 65% with moderate left ventricular prophy he has a history of aortic stenosis with a peak gradient of 47 mean of 25 and mild aortic insufficiency. This was last checked in February 2023. The patient also carries a history of hypertension and known moderate coronary disease by heart catheterization done March 2022. That cath revealed left main to be 25% stenosed LAD had mild luminal irregularities the first diagonal was 50% stenosed the lateral circumflex had mild luminal irregularities and right coronary had mild luminal irregularities. He has been treated medically. The patient also carries a history of diabetes hypothyroidism and COPD. The patient is a candidate for additional beta-greta therapy, spironolactone, and Jardiance. (2) Essential hypertension: PLAN: The patient's blood pressure has run between 130 and 170 systolic. However he must consider that he has moderate aortic stenosis which is in creasing the pressures a mean of 25 and a peak gradient of 47. This gives you an added pressure on the left ventricular chamber. The blood pressure should be titrated to a systolic in the 110-120 range as tolerated. I will continue the current medical regimen as is with the exception of restarting the Coreg 6.25 mg twice daily as tolerated. (3) Renal insufficiency: PLAN: The patient's creatinine clearance is 34. He sees nephrology. He is scheduled for some type of procedure at in [place] in the near future. (4) Anemia: QUALIFIERS: Anemia type: iron deficiency Iron deficiency anemia type: other iron deficiency Qualified Code(s): D50.8 - Other iron deficiency anemias PLAN: The patient's hemoglobin has been as low as 7.5 back in March 03. He was evaluated by GI and his aspirin has been discontinued. His hemoglobin on today's admission is 8.5. He should avoid anticoagulation and antiplatelet therapy at this time. (5) Elevated troponin: PLAN: The troponins are likely elevated due to demand ischemia in a patient with moderate coronary artery disease aortic valve stenosis hypertension and heart failure with preserved ejection fraction and hypoxia. I do not feel that further invasive or noninvasive evaluation of the current cardiac status is indicated at this time. The secondary causes should be addressed including his hypoxia his heart failure and potentially his anemia. (6) Nonrheumatic aortic (valve) stenosis: PLAN: The patient has moderate aortic stenosis with a peak gradient of 47 and a mean of 25. This is being followed by the [facility] group according to the patient's report. (7) Atherosclerotic heart disease of [place] coronary artery without angina pectoris: QUALIFIERS: [place] vs. transplanted heart: [place] heart Qualified Code(s): I25.10 - Atherosclerotic heart disease of [place] coronary artery without angina pectoris PLAN: The patient had moderate disease on a cath March 2022 left main was 25% LAD had mild luminal irregularities the diagonal 1 had 50% stenosis the lateral circumflex had mild irregularities as did the right coronary artery. The patient has been controlled medically. I do not feel that the current troponin bumps are related to an acute type I non-STEMI. The patient has no ECG changes and multiple other explanations for the small bump in the high-sensitivity troponins. (8) HLD (hyperlipidemia): QUALIFIERS: Hyperlipidemia type: mixed hyperlipidemia Qualified Code(s): E78.2 - Mixed hyperlipidemia PLAN: The patient reports this is managed by the primary service and [facility] web art director he is on intensive statin therapy which should be continued as tolerated. (9) Carotid artery stenosis: QUALIFIERS: Laterality: bilateral Qualified Code(s): I65.23 - Occlusion and stenosis of bilateral carotid arteries PLAN: Carotid ultrasound revealed bilateral greater than 70% stenoses in February 2023. The patient is not a candidate for antiplatelet therapy at this point in time the patient should be followed by the [facility]ology group for long-term management. He denies any TIA type symptoms to me at this time however there is a history of a TIA in his medical record. PLAN: Plan 1. Add spironolactone 25 mg every morning and Coreg 6.25 mg twice daily to the medical regimen. 2. Add Jardiance 10 mg daily and monitor for hypoglycemic event. 3. Make certain a basic metabolic panel is checked 1 week after discharge to monitor him for his potassium and renal status. 4. The carotids need to be followed up by the [facility]ology group. 5. The patient is to be maintained on his secondary risk factors for his lipid management as tolerated with the atorvastatin 80 mg daily and monitored through his primary care service. 6. From a cardiovascular standpoint the patient should be able to be discharged once his meds are titrated and he is weaned off oxygen and ambulatory in the halls. Please call us if further assistance is needed the patient will follow-up with his [facility] web art director after discharge at his request. HPI Consult Data Date of Consult: 04/25/23 HPI Narrative Reason for Consultation: SOB presumed CHF exacerbation HPI Narrative: BEULAH BRIGHT, is a 82 M who presents with what sounds to be acute de compensation of his heart failure with preserved ejection fraction. He was at the program specialist office yesterday and walking out developed profound dyspnea on exertion and really never recovered. He came to the emergency room complaining of shortness of breath and was admitted to the hospital. Who reports that since he was switched from furosemide to Lasix he has had trouble with maintaining his volume status. This was done by his home health aide when he was complaining of gout. He has been sleeping in a recliner for the last 6 years. Reports he does not have much in the way of lower extremity edema and denies any chest pain. The patient reports he is feeling much better after IV Lasix and supplemental oxygen. The patient back in June 2022 was being evaluated in the [facility] office. He was on beta-greta therapy at that point in time but was no longer on it when he was admitted this time. The patient also carries a history of chronic renal insufficiency. His EKG on admission showed sinus tachycardia at a heart rate of 111 bpm with a first-degree AV block and nonspecific ST-T wave changes which was unchanged from a previous EKG done April 07, 2023. His BNP was 143 and his troponins went from 47-2 82. His GFR is 34. The patient had a carotid ultrasound done February 2023 which showed greater than 70% stenosis bilaterally. He denies any TIA type symptoms to me. The patient's last echo done February 2023 showed an left-ventricular ejection fraction of 65% with moderate left ventricular prophy. He had moderate aortic stenosis with peak gradient of 47 mean gradient of 25 and mild aortic insufficiency. His telemetry since admission shows normal sinus rhythm with a heart rate between 90 and 105. [facility] Medical History Acute and chronic respiratory failure with hypoxia Aortic valve stenosis, acquired Atherosclerotic heart disease of [place] coronary artery without angina pectoris CAD (coronary artery disease) Cardiology follow-up encounter Chronic respiratory failure with hypoxia COPD (chronic obstructive pulmonary disease) Diabetes Diabetes mellitus, type 2 Diastolic CHF Former smoker Former tobacco use High cholesterol History of CAD (coronary artery disease) History of echocardiogram History of GI bleed History of left heart catheterization (LHC) (~03/15/22) HLD (hyperlipidemia) HTN (hypertension) Hypertension Hypothyroidism Kidney disease Loss of hearing Low iron Mild left ventricular hypertrophy Myocardial infarct No natural teeth Nonrheumatic aortic (valve) stenosis Obesity On home oxygen therapy Polyarthralgia Poor historian Shortness of breath on exertion Symptomatic anemia Syncope Thyroid disease TIA (transient ischemic attack) Wears glasses Home Medications atorvastatin 80 mg tablet 80 mg PO DAILY CHOLESTEROL 05/02/21 [History Last Taken 02/14/23] cholecalciferol (vitamin D3) 25 mcg (1,000 unit) capsule 25 mcg PO DAILY vitamin 05/02/21 [History Last Taken 02/15/23] ipratropium 0.5 mg-albuterol 3 mg (2.5 mg base)/3 mL nebulization soln 3 ml inhalation 4X/DAY PRN sob 05/02/21 [History Last Taken 02/15/23] liothyronine 25 mcg tablet 25 mcg PO DAILY THYROID 05/02/21 [History Last Taken 02/15/23] omega-3 fatty acids-vitamin E 1,000 mg capsule 2 cap PO BID SUPPLEMENT 05/02/21 [History Last Taken 02/15/23] tiotropium bromide 18 mcg capsule with inhalation device (Spiriva with HandiHaler) 18 mcg inhalation DAILY SOB 05/02/21 [History Last Taken 02/15/23] vitamins A,C,X-jtob-msluav 4,296 mcg-226 mg-90 mg capsule (PreserVision AREDS) 1 cap PO BID vitamin 12/13/21 [History Last Taken 02/15/23] lisinopril 20 mg tablet (Zestril) 10 mg PO DAILY blood pressure 03/12/22 [History Last Taken 02/15/23] glimepiride 2 mg tablet 2 mg PO DAILY DM #3 tabs 03/09/23 [Rx Last Taken 02/15/23] pantoprazole 40 mg tablet,delayed release (Protonix) 40 mg PO BID 90 days #180 tabs 03/09/23 [Rx Last Taken Unknown] sucralfate 1 gram tablet 1 g PO TID 30 days #90 tabs 03/23/23 [Rx Last Taken Unknown] sucralfate 1 gram tablet (Carafate) 1 g PO BID 30 days #60 tabs 03/23/23 [Rx Last Taken Unknown] Allergy/AdvReac Type Severity Reaction Status Date / Time codeine AdvReac Upset Verified 04/07/23 13:44 Stomach Family History Mother CVA (cerebral vascular accident) Heart disease Myocardial infarction Hx of CABG Hypertension Father CVA (cerebral vascular accident) Heart disease Surgical History S/P cataract extraction Social History household members: none housing: house Smoking Status: Former smoker how long ago did patient quit smoking: Quit 2011, prior 1 ppd since teen. alcohol intake: former year quit: 2010 substance use type: does not use ROS Constitutional Constitutional: Reports as per HPI Eyes Eyes: Reports systems reviewed and no addt'l complaints, except as documented ENT HEENT: Reports systems reviewed and no addt'l complaints, except as documented Cardiovascular Cardiovascular: Reports as per HPI Respiratory/Chest Respiratory/Chest: Reports as per HPI Gastrointestinal Gastrointestinal: Reports systems reviewed and no addt'l complaints, except as documented Genitourinary Genitourinary: Reports systems reviewed and no addt'l complaints, except as documented Musculoskeletal Musculoskeletal: Reports systems reviewed and no addt'l complaints, except as documented Integumentary Integumentary: Reports systems reviewed and no addt'l complaints, except as documented Neurologic Neurologic: Reports systems reviewed and no addt'l complaints, except as documented Psychiatric Psychiatric: Reports systems reviewed and no addt'l complaints, except as documented Endocrine Endocrinology: Reports systems reviewed and no addt'l complaints, except as documented Hematologic/Lymphatic Hematologic/Lymphatic: Reports systems reviewed and no addt'l complaints, except as documented Allergic/Immunologic Allergic/Immunologic: Reports systems reviewed and no addt'l complaints, except as documented Physical Exam Const oriented x3 HEENT normocephalic Eyes EOMs intact bilaterally Neck no JVD Carotids: bruit Positive for right Chest inspection of chest normal Resp normal respiratory effort Resp Narrative: On 2 L nasal cannula. Auscultation: wheezes expiratory wheezes and posterior and diminished lung sounds bilateral lower Cardio regular rate Rhythm: regular rhythm Heart Sounds: S1 normal, S2 normal and murmur systolic III/ harsh left sternal border and right sternal border to the neck and to carotid arteries; Negative for click or gallop GI soft to palpation Extremity no pedal edema Skin no rashes or lesions noted Neuro Neuro Narrative: Alert and oriented x 3 Psych mental status grossly normal Risk Stratification Risk Stratification Applicable: Yes Age >/= 65: Yes >/= 3 CAD Risk Factors (HTN, HLD, DM, family hx of CAD, or current smoker): Yes Aspirin Use in the Past 7 Days: No Severe Angina (>/= episodes in 24 hours): No EKG ST Changes >/= 0.5mm: No Positive Cardiac Marker: Yes MARGARITO Risk Stratification Score: 3 MARGARITO % Risk: 13% Risk Charges/Coding Visit Charges Inpatient E&M: 19772 Init Hosp L3 Objective Data Vital Signs: Vital Signs Temp Pulse Resp BP Pulse Ox O2 Del Method O2 Flow Rate 97.5 F L 102 H 22 H 131/60 H 98 Nasal Cannula 2 04/25/23 02:30 04/25/23 07:43 04/25/23 07:43 04/25/23 02:30 04/25/23 07:43 04/25/23 08:08 04/25/23 08:08 Oxygen Flow Rate (L/min) 2 Oxygen Delivery Method Nasal Cannula Weight: 192 lb 9.6 oz Body Mass Index (BMI) 32.0 Intake & Output: Intake and Output for Last 24 Hours 04/23/23 04/24/23 04/25/23 23:59 23:59 23:59 Intake Total 240 / 240 Output Total 850 / 850 500 / 500 Balance -850 / -850 -260 / -260 Lab / Micro Data Attestation: I reviewed the patient's lab results. 04/25/23 07:00 04/25/23 07:00 Labs: Laboratory Results - last 24 hr 04/24/23 15:55: WBC 5.6, RBC 3.36 L, Hgb 9.3 L, Hct 30.1 L, MCV 89.6, MCH 27.7, MCHC 30.9 L, RDW Std Deviation 48.0 H, RDW Coeff of John 14.7 H, Plt Count 103 L, MPV 11.9, Immature Gran % (Auto) 0.200, Neut % (Auto) 76.7 H, Lymph % (Auto) 12.0 L, [place] % (Auto) 6.1, Eos % (Auto) 4.5, Baso % (Auto) 0.5, Absolute Neuts (auto) 4.3, Absolute Lymphs (auto) 0.67 L, Nucleated RBC % 0, Sodium 145, Potassium 4.1, Chloride 108 H, Carbon Dioxide 33.0 H, Anion Gap 4 L, BUN 43 H, Creatinine 2.00 H, Estim Creat Clear Calc 29.00, Est GFR (MDRD) Af Amer 41 L, E st GFR (MDRD) Non-Af 34 L, BUN/Creatinine Ratio 21.5 H, Glucose 200 H, Calcium 9.3, Troponin I High Sens 47, B-Natriuretic Peptide 143.1 H 04/24/23 21:03: Troponin I High Sens 239 H* 04/24/23 22:43: Troponin I High Sens 282 H* 04/25/23 02:41: Troponin I High Sens 334 H* 04/25/23 06:16: POC Glucose 130 H 04/25/23 07:00: WBC 6.6, RBC 3.28 L, Hgb 8.9 L, Hct 29.0 L, MCV 88.4, MCH 27.1, MCHC 30.7 L, RDW Std Deviation 47.5 H, RDW Coeff of John 14.6, Plt Count 113 L, MPV 11.3, Immature Gran % (Auto) 0.300, Neut % (Auto) 68.9, Lymph % (Auto) 17.5 L, [place] % (Auto) 8.3, Eos % (Auto) 4.4, Baso % (Auto) 0.6, Absolute Neuts (auto) 4.6, Absolute Lymphs (auto) 1.16, Nucleated RBC % 0 Micro: Microbiology 04/24/23 16:54 Mucosa - Nasopharyngeal SARS-CoV-2, Influenza & RSV (PCR) - Final Rhythm Strip Rhythm Strip: Sinus Rhythm Rate: 100 Cardiology Labs/Tests 04/24/23 15:55: WBC 5.6, RBC 3.36 L, Hgb 9.3 L, Hct 30.1 L, MCV 89.6, MCH 27.7, MCHC 30.9 L, Plt Count 103 L, MPV 11.9, Immature Gran % (Auto) 0.200, Neut % (Auto) 76.7 H, Lymph % (Auto) 12.0 L, [place] % (Auto) 6.1, Eos % (Auto) 4.5, Baso % (Auto) 0.5, Absolute Neuts (auto) 4.3, Nucleated RBC % 0, Sodium 145, Potassium 4.1, Chloride 108 H, Carbon Dioxide 33.0 H, Anion Gap 4 L, BUN 43 H, Creatinine 2.00 H, Est GFR (MDRD) Af Amer 41 L, Est GFR (MDRD) Non-Af 34 L, BUN/Creatinine Ratio 21.5 H, Glucose 200 H, Calcium 9.3, B-Natriuretic Peptide 143.1 H 04/25/23 07:00: WBC 6.6, RBC 3.28 L, Hgb 8.9 L, Hct 29.0 L, MCV 88.4, MCH 27.1, MCHC 30.7 L, Plt Count 113 L, MPV 11.3, Immature Gran % (Auto) 0.300, Neut % (Auto) 68.9, Lymph % (Auto) 17.5 L, [place] % (Auto) 8.3, Eos % (Auto) 4.4, Baso % (Auto) 0.6, Absolute Neuts (auto) 4.6, Nucleated RBC % 0 Rhythm: EKG: ECHO: Stress Test: Cardiac Cath: PCI: CT Surgery: Holter monitor: EPS: PPM: CXR: Chest CT Scan: Radiography Diagnostic Testing: Radiology Impression Chest X-Ray 04/24/23 17:08 IMPRESSION: Chronic prominence of the lung interstitium. Electronically Signed: John Martinez, at 17:33 EST , EKG Initial EKG: Attestation: I personally reviewed and interpreted this EKG as follows: Interpretation: Sinus tachycardia with first-degree AV block at 111 bpm normal axis nonspecific ST-T wave changes. This is unchanged from April 07, 2023 ECG.
[2023-04-25] MEDS: Lisinopril 10 MG Tablet PO (09:20)
[2023-04-25] MEDS: Atorvastatin Calcium 80 MG Tablet PO (09:20)
[2023-04-25] MEDS: Pantoprazole Sodium 40 MG Tablet PO ×2 (09:20→20:06)
[2023-04-25] MEDS: Multivitamin (Healthy Eyes) Capsule 1 CAP PO ×2 (09:20→16:24)
[2023-04-25] MEDS: Bumetanide 1 MG/4 ML Vial 2 MG IV ×2 (09:21→17:23)
[2023-04-25] MEDS: Cholecalciferol (VIT D3) 25 MCG TABLET (1,000 UNITS) PO (09:21)
[2023-04-25] MEDS: 0.9% Saline Lock 10 ML Syringe IV ×2 (09:28→17:24)
[2023-04-25] MEDS: Carvedilol 6.25 MG Tablet PO ×2 (09:39→16:24)
[2023-04-25] MEDS: Empagliflozin 10 MG Tablet PO (09:39)
[2023-04-25] MEDS: Spironolactone 25 MG Tablet PO (09:39)
[2023-04-25 11:33] LABS: Bedside Glucose 180 mg/dL (74-106)
--- NOTE | 2023-04-25 11:50 | CASEMGMT ---
Addendum entered by Wandy Jiménez 04/25/23 12:32: Pt has a pox at home as well. Original Note: RN NIMCO Assessment: Face to Face with pt for initial transition planning/care coordination assessment. RN NIMCO introduced self and role at [facility], pt voices understanding and consents to assessment. Pt is A&O x4 and answers all questions appropriately at this time. Pt sitting up in chair with oxygen on in no distress and son in law at bedside. Pt agreeable to assessment with son in law present. Care providers, pharmacy, and demographics verified/updated. Admitting Dx: acute hypoxia 2/2 a on c heart failure PCP:[facility] Specialists:Nephro and cardio in [place], pt does not recall name; Friend, GI Preferred Pharmacy: [facility] Insurance: Melissa MAR Prescription Benefit: yes LNOK: chen Barajas dtr Living Arrangements: Pt lives alone in a mobile home with 8 steps to enter and a rail on both sides. Pt reports he is I in ADL's and IADL's. Denies concerns at home. Transportation: Pt drives self and denies concerns with transportation. DME:shower chair, BP cuff, scale but can't read, discussed getting one that announces weight, oxygen at 2L cont through [employer], will verify rx, portable concentrator in room, cane and walker HHC/SNF: Pt has had [facility]HC in the past, has been to [facility] Pt states no concerns with going home at time of dc. Pt reports he does not weigh himself daily, discussed having [facility] for m/s assess and CHF teaching, pt agreeable. He wants [facility] again, he denies need for a list of agencies. Referral made to [facility], pending acceptance. Pt states no further concerns/needs. CM to follow. Advised pt to ask CM if any further question/concerns/needs arise, voices understanding. Pt Goal: Home with HHC Plan: Home with [facility]; follow increase in oxygen rx Updated ALMA RINALDI.
--- NOTE | 2023-04-25 13:08 | CASEMGMT ---
RN NIMCO received call back from [facility] and they are able to accept patient with planned start of care for Sunday.
--- NOTE | 2023-04-25 13:48 | PCM.PN.HOSP ---
Subjective Subjective Breathing little bit better, discussed the situation with his primary care doctor it does appear that he tends to make his own individual determinations in which medications he continues and does not continue. He decreases the dosages of his own medications without physician guidance despite multiple warnings as to possible outcomes. Objective Data Objective Data Vital Signs: Vital Signs Temp Pulse Resp BP Pulse Ox O2 Del Method O2 Flow Rate 97.9 F 94 16 136/53 H 97 Nasal Cannula 2 04/25/23 08:30 04/25/23 11:21 04/25/23 11:21 04/25/23 08:30 04/25/23 11:21 04/25/23 11:21 04/25/23 11:34 Oxygen Flow Rate (L/min) 2 Oxygen Delivery Method Nasal Cannula Weight: 192 lb 9.6 oz Body Mass Index (BMI) 32.0 Intake & Output: Intake and Output for Last 24 Hours 04/24/23 04/25/23 04/26/23 03:59 03:59 03:59 Intake Total 120 / 120 360 / 360 Output Total 1350 / 1350 300 / 300 Balance -1230 / -1230 60 / 60 Lab / Micro Data 04/25/23 07:00 04/25/23 07:00 Labs: Laboratory Results - last 24 hr 04/24/23 15:55: WBC 5.6, RBC 3.36 L, Hgb 9.3 L, Hct 30.1 L, MCV 89.6, MCH 27.7, MCHC 30.9 L, RDW Std Deviation 48.0 H, RDW Coeff of John 14.7 H, Plt Count 103 L, MPV 11.9, Immature Gran % (Auto) 0.200, Neut % (Auto) 76.7 H, Lymph % (Auto) 12.0 L, Vernon % (Auto) 6.1, Eos % (Auto) 4.5, Baso % (Auto) 0.5, Absolute Neuts (auto) 4.3, Absolute Lymphs (auto) 0.67 L, Nucleated RBC % 0, Sodium 145, Potassium 4.1, Chloride 108 H, Carbon Dioxide 33.0 H, Anion Gap 4 L, BUN 43 H, Creatinine 2.00 H, Estim Creat Clear Calc 29.00, Est GFR (MDRD) Af Amer 41 L, Est GFR (MDRD) Non-Af 34 L, BUN/Creatinine Ratio 21.5 H, Glucose 200 H, Calcium 9.3, Troponin I High Sens 47, B-Natriuretic Peptide 143.1 H 04/24/23 21:03: Troponin I High Sens 239 H* 04/24/23 22:43: Troponin I High Sens 282 H* 04/25/23 02:41: Troponin I High Sens 334 H* 04/25/23 06:16: POC Glucose 130 H 04/25/23 07:00: WBC 6.6, RBC 3.28 L, Hgb 8.9 L, Hct 29.0 L, MCV 88.4, MCH 27.1, MCHC 30.7 L, RDW Std Deviation 47.5 H, RDW Coeff of John 14.6, Plt Count 113 L, MPV 11.3, Immature Gran % (Auto) 0.300, Neut % (Auto) 68.9, Lymph % (Auto) 17.5 L, Vernon % (Auto) 8.3, Eos % (Auto) 4.4, Baso % (Auto) 0.6, Absolute Neuts (auto) 4.6, Absolute Lymphs (auto) 1.16, Nucleated RBC % 0, Sodium 144, Potassium 3.9, Chloride 104, Carbon Dioxide 32.0, Anion Gap 8, BUN 45 H, Creatinine 1.92 H, Estim Creat Clear Calc 29.62, Est GFR (MDRD) Af Amer 43 L, Est GFR (MDRD) Non-Af 36 L, BUN/Creatinine Ratio 23.4 H, Glucose 129 H, Calcium 9.4, Phosphorus 2.4 L, Magnesium 1.6, Total Bilirubin 0.90, AST 17, ALT 13 L, Alkaline Phosphatase 80, Total Protein 7.0, Albumin 3.3, Globulin 3.7, Albumin/Globulin Ratio 0.9, Triglycerides 216 H, Cholesterol 170, LDL Cholesterol 94, VLDL Cholesterol 43 H, HDL Cholesterol 33 L, TSH 3.43 04/25/23 11:08: POC Glucose 180 H Micro: Microbiology 04/24/23 16:54 Mucosa - Nasopharyngeal SARS-CoV-2, Influenza & RSV (PCR) - Final Radiography Diagnostic Testing: Radiology Impression Chest X-Ray 04/24/23 17:08 IMPRESSION: Chronic prominence of the lung interstitium. Electronically Signed: John Martinez, at 17:33 EST , Rhythm Strip Rhythm Strip: Sinus Rhythm Rate: 100 Physical Exam Narrative General: Alert, Oriented x3, Cooperative, No apparent distress HEENT: Atraumatic, PERRLA, EOMI, Normocephalic Oral: Moist Mucosa Neck: Supple, No JVD Lungs: Diminished, Normal air movement, No rhonchi, No wheeze, mild bilateral crackles Cardiovascular: Regular rate, Regular Rhythm, Normal S1, Normal S2, No murmurs Abdomen: Soft, Non Tender, Non-Distended, No Hepato-splenomegaly Extremities: Trace edema, Capillary Refill Less than 3 Seconds Skin: No rashes, No breakdown Musculoskeletal: No Tenderness to Palpation of Joints or Extremities Neurological: No focal neurological deficits, Motor Exam 5/5 strength throughout, Sensory exam intact to light touch and pain Psych/Mental Status: Normal Affect, Appropriate Assessment & Plan Assessment/Plan (1) Acute dyspnea: (2) Acute on chronic heart failure with preserved ejection fraction (HFpEF): (3) Anemia: QUALIFIERS: Anemia type: iron deficiency Iron deficiency anemia type: other iron deficiency Qualified Code(s): D50.8 - Other iron deficiency anemias (4) Hypoxia: PLAN: Plan 1. Acute on chronic hypoxia secondary to acute on chronic diastolic CHF/HTN/HLD ? Appreciate cardiology's assistance ? Continue with Bumex as well as Aldactone and Jardiance ? EF 65% with mild concentric LVH and mild to moderate aortic stenosis ? Patient is making his own medication adjustments so we will need to be firm in his education about his medications ? Continue with his cholesterol medications 2. Chronic hypoxic respiratory failure from COPD ? She wears 2 L at baseline ? Will continue to monitor 3. DM2 ? Stable ? Can continue with insulin ? Accu-Cheks ACHS ? We will monitor make adjustments as necessary ? Will hold his home medications 4. Chronic anemia of chronic thrombocytopenia ? Unclear as to the etiology ? Will continue to monitor 5. Hypothyroidism ? Stable ? Continue with home medications ? TSH was 3.43 DVT: Heparin Charges/Coding Visit Charges Inpatient E&M: 03329 Subs Hosp L2
[2023-04-25 16:45] LABS: Bedside Glucose 128 mg/dL (74-106)
[2023-04-25 22:54] LABS: Bedside Glucose 157 mg/dL (74-106)
[2023-04-26 01:30] VITALS: BMI 31.6
[2023-04-26] MEDS: Ipratropium/Albuterol Sulfate 3 ML AMPUL.NEB INHALATION ×2 (01:43→12:15)
[2023-04-26 01:45] VITALS: PULSE 80; RESP 24
[2023-04-26 02:30] VITALS: BP 121/47; PULSE 80; RESP 20; TEMP 36.1; O2SAT 94
[2023-04-26] MEDS: Liothyronine 5 MCG Tablet 25 MCG PO (06:23)
[2023-04-26] MEDS: Heparin Injection (Vial) 5,000 UNIT/ML VIAL 5000 UNIT SC (06:23)
[2023-04-26] MEDS: Sucralfate 1 GM Tablet PO ×2 (06:23→10:19)
[2023-04-26 06:30] LABS: Bedside Glucose 119 mg/dL (74-106)
[2023-04-26 07:21] VITALS: O2SAT 98
--- NOTE | 2023-04-26 07:40 | PCM.PN.CARD ---
Subjective Subjective The patient was examined with him seated in the chair. He reports that he is feeling better he remains on 2 L nasal cannula which he has in his home environment. 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 Patient's I's and O's have been negative his weight is down 2 pounds. Objective Data Vital Signs: Vital Signs Temp Pulse Resp BP Pulse Ox O2 Del Method O2 Flow Rate 96.9 F L 80 20 H 121/47 H 94 Nasal Cannula 2 04/26/23 02:30 04/26/23 02:30 04/26/23 02:30 04/26/23 02:30 04/26/23 02:30 04/26/23 02:53 04/26/23 02:53 Oxygen Flow Rate (L/min) 2 Oxygen Delivery Method Nasal Cannula Weight: 190 lb 0.615 oz Body Mass Index (BMI) 31.6 Intake & Output: Intake and Output for Last 24 Hours 04/24/23 04/25/23 04/26/23 23:59 23:59 23:59 Intake Total 720 / 720 200 / 200 Output Total 850 / 850 1875 / 1875 700 / 700 Balance -850 / -850 -1155 / -1155 -500 / -500 Lab / Micro Data Attestation: I reviewed the patient's lab results. 04/25/23 07:00 04/25/23 07:00 Labs: Laboratory Results - last 24 hr 04/25/23 07:00: WBC 6.6, RBC 3.28 L, Hgb 8.9 L, Hct 29.0 L, MCV 88.4, MCH 27.1, MCHC 30.7 L, RDW Std Deviation 47.5 H, RDW Coeff of John 14.6, Plt Count 113 L, MPV 11.3, Immature Gran % (Auto) 0.300, Neut % (Auto) 68.9, Lymph % (Auto) 17.5 L, Teller % (Auto) 8.3, Eos % (Auto) 4.4, Baso % (Auto) 0.6, Absolute Neuts (auto) 4.6, Absolute Lymphs (auto) 1.16, Nucleated RBC % 0, Sodium 144, Potassium 3.9, Chloride 104, Carbon Dioxide 32.0, Anion Gap 8, BUN 45 H, Creatinine 1.92 H, Estim Creat Clear Calc 29.62, Est GFR (MDRD) Af Amer 43 L, Est GFR (MDRD) Non-Af 36 L, BUN/Creatinine Ratio 23.4 H, Glucose 129 H, Calcium 9.4, Phosphorus 2.4 L, Magnesium 1.6, Total Bilirubin 0.90, AST 17, ALT 13 L, Alkaline Phosphatase 80, Total Protein 7.0, Albumin 3.3, Globulin 3.7, Albumin/Globulin Ratio 0.9, Triglycerides 216 H, Cholesterol 170, LDL Cholesterol 94, VLDL Cholesterol 43 H, HDL Cholesterol 33 L, TSH 3.43 04/25/23 11:08: POC Glucose 180 H 04/25/23 16:22: POC Glucose 128 H 04/25/23 22:30: POC Glucose 157 H 04/26/23 06:11: POC Glucose 119 H Cardiology Labs/Tests 04/25/23 07:00: WBC 6.6, RBC 3.28 L, Hgb 8.9 L, Hct 29.0 L, MCV 88.4, MCH 27.1, MCHC 30.7 L, Plt Count 113 L, MPV 11.3, Immature Gran % (Auto) 0.300, Neut % (Auto) 68.9, Lymph % (Auto) 17.5 L, Teller % (Auto) 8.3, Eos % (Auto) 4.4, Baso % (Auto) 0.6, Absolute Neuts (auto) 4.6, Nucleated RBC % 0, Sodium 144, Potassium 3.9, Chloride 104, Carbon Dioxide 32.0, Anion Gap 8, BUN 45 H, Creatinine 1.92 H, Est GFR (MDRD) Af Amer 43 L, Est GFR (MDRD) Non-Af 36 L, BUN/Creatinine Ratio 23.4 H, Glucose 129 H, Calcium 9.4, Phosphorus 2.4 L, Magnesium 1.6, Total Bilirubin 0.90, Triglycerides 216 H, Cholesterol 170, LDL Cholesterol 94, VLDL Cholesterol 43 H, HDL Cholesterol 33 L Rhythm: EKG: ECHO: Stress Test: Cardiac Cath: PCI: CT Surgery: Holter monitor: EPS: PPM: CXR: Chest CT Scan: Physical Exam Const oriented x3 HEENT normocephalic Eyes EOMs intact bilaterally Neck no JVD Neck Narrative: No JVD at 90 degrees. Carotids: bruit Positive for left Chest inspection of chest normal Resp Auscultation: rhonchi left lower and right lower and diminished lung sounds diffuse Cardio regular rate, regular rhythm, S1 normal heart sound, S2 normal heart sound, no rub and no gallops Heart Sounds: murmur systolic II/ harsh left sternal border, right sternal border and neck GI soft to palpation Extremity no pedal edema Skin no rashes or lesions noted Neuro Neuro Narrative: Alert and oriented x 3 Psych mental status grossly normal Assessment & Plan Assessment/Plan (1) Acute on chronic heart failure with preserved ejection fraction (HFpEF): PLAN: The patient was instituted on Coreg and spironolactone as well as Jardiance yesterday. He is tolerating the medical regimen. His I's and O's have been negative and his weight is down 2 pounds. BUN and creatinine are fairly stable at 45 and creatinine at 1.92 giving him a GFR of 36. There is no new blood work this morning. The patient is tolerating his oxygen saturation on his 2 L nasal cannula which he has in his home environment. The patient continues to have diffuse decrease in breath sounds and he has a significant component of primary lung disease related to exposure and smoking. The patient's heart failure with preserved ejection fraction is probably exacerbated by combination of his hypoxic event that led to his admission, his anemia related to his recent GI bleed, and mild aortic stenosis in the face of mild to moderate coronary artery disease. Given the patient's GI blood loss and his anemia he should be evaluated for iron depletion and replaced as indicated. This can be followed up by his linux system engineer in the [place] group. I went over again the importance of getting some blood work done in 1 week to evaluate his potassium and renal function (2) Renal insufficiency: PLAN: GFR of 36 the patient did have a basic metabolic panel done 1 week after discharge I went over the importance of this with him in detail given the changes in the medical regiment that we have made including adding spironolactone and the new loop diuretic with Bumex. (3) Nonrheumatic aortic (valve) stenosis: PLAN: The patient's murmur is consistent with mild aortic stenosis which was previously diagnosed on an echocardiogram back in March 2022. He denies any syncope or near syncope and is having no chest discomfort. (4) Essential hypertension: PLAN: Blood pressure is adequately controlled on his current medical therapy. (5) Anemia: QUALIFIERS: Anemia type: iron deficiency Iron deficiency anemia type: other iron deficiency Qualified Code(s): D50.8 - Other iron deficiency anemias PLAN: Anemia related to GI blood loss back in February treated by Dr. Joy the patient should follow-up with his [place] linux system engineer to determine if iron replacement therapy would be of benefit to help with his heart failure. PLAN: Plan From a cardiovascular standpoint the patient can be discharged to home. The patient should continue with his home oxygen. The patient needs to get a basic metabolic panel done in 1 week and follow-up with his sales force developer. He should make certain he and includes his new medical regiment when he follows up with the sales force developer and his linux system engineer at [place]. Charges/Coding Visit Charges Inpatient E&M: 86973 Subs Hosp L3
[2023-04-26 08:10] LABS: Absolute Neutrophil Count 3.4 X10^3/uL (2.0-7.7); Basophil# 0.04 X10^3/uL; Basophil% 0.7 % (0-1); Eosinophil# 0.34 X10^3/uL; Hematocrit 30.2 % (40-54); Hemoglobin 9.4 g/dL (13.0-16.5); Lymphocyte % 24.7 % (19-41); Mean Corp Hgb Conc 31.1 g/dL (32-36); Mean Corpuscular Hgb 27.5 pg (27.0-32.0); Mean Corpuscular Volume 88.3 fL (80-94); Mean Platelet Vol. 11.7 fl (6.2-12.0); Monocyte% 8.8 % (0-10); NRBC Flagged by Analyzer 0 % (0-5); Neutrophil # 3.37 X10^3/uL (2.7-7.7); Neutrophil % 59.6 % (47-70); Platelet Count 123 K/mm3 (150-450); RBC Distribution Width CV 14.6 % (11.6-14.6); RBC Distribution Width SD 46.8 fl (35.1-43.9); Red Blood Count 3.42 M/mm3 (4.6-6.2); White Blood Count 5.7 K/mm3 (4.4-11.0)
[2023-04-26 08:20] VITALS: BP 134/46; PULSE 87; RESP 20; TEMP 36.4; O2SAT 94
[2023-04-26] MEDS: Carvedilol 6.25 MG Tablet PO (08:22)
[2023-04-26] MEDS: Spironolactone 25 MG Tablet PO (08:22)
[2023-04-26] MEDS: Multivitamin (Healthy Eyes) Capsule 1 CAP PO (08:22)
[2023-04-26] MEDS: Lisinopril 10 MG Tablet PO (08:22)
[2023-04-26] MEDS: Pantoprazole Sodium 40 MG Tablet PO (08:22)
[2023-04-26] MEDS: Cholecalciferol (VIT D3) 25 MCG TABLET (1,000 UNITS) PO (08:22)
[2023-04-26] MEDS: Empagliflozin 10 MG Tablet PO (08:23)
[2023-04-26] MEDS: Bumetanide 1 MG/4 ML Vial 2 MG IV (08:23)
[2023-04-26 08:47] LABS: Anion Gap 10 (5-15); BUN 58 mg/dL (7-18); BUN/Creat Ratio 23.9 RATIO (10-20); Calcium,Total 9.9 mg/dL (8.5-10.1); Chloride 101 mmol/L (98-107); Creatinine, Serum 2.43 mg/dL (0.70-1.30); EST Glomerular Filtration Rate 27 mL/min (>60); Est Glom Filt Rate - Afr Amer 33 mL/min (>60); Estimated Creatinine Clearance 23.25 ml/min; Glucose 129 mg/dL (74-106); Potassium 3.8 mmol/L (3.5-5.1); Sodium Level 142 mmol/L (136-145)
[2023-04-26] MEDS: Atorvastatin Calcium 80 MG Tablet PO (10:19)
[2023-04-26] MEDS: Insulin Lispro 100 UNIT/ML INSULN.PEN SC (11:10)
[2023-04-26 11:29] LABS: Bedside Glucose 209 mg/dL (74-106)
[2023-04-26 11:31] VITALS: O2SAT 84; O2SAT 87; O2SAT 88; O2SAT 91; O2SAT 98
[2023-04-26 12:15] VITALS: PULSE 8; RESP 20
--- NOTE | 2023-04-26 15:29 | PCM.DC ---
Discharge Instructions Diet Discharge Diet: Low fat / Low cholesterol and 6 Cup Fluid Restriction Activity Discharge Activity: Return to Normal Activity Dressing / Incision Call your doctor if you observe: Fever of 101 or Higher, Shortness of breath, Dizziness, Fainting spells, Swelling in the ankles, Chest pain and Increased palpitations (irregular heartbeat) Follow Up Care Test Results: Test results from this visit will be discussed in further detail at your follow-up appointment, if applicable. Discharge Plan Admission Admit Date/Time: 04/24/23 19:41 Attending Provider: John Anders Primary Care Provider: Adrianna Nichols Consulting Providers: Michelle Washburn; Trell Kendrick Instructions Additional Instructions / Restrictions: You will need to follow-up with your PCP early next week for blood work to monitor your renal function as well as your blood sugars as you were started on Jardiance which is a diabetic medication that helps with your heart failure. We also placed you on spironolactone as well as bumetanide which are diuretics to help keep fluid off of your heart is much as possible. We also recommend restarting her Coreg to control your blood pressure and your heart rate. Discharge Orders/Prescriptions Prescriptions: New carvedilol 6.25 mg Tablet 6.25 mg PO BIDCM 30 Days Qty: 60 0RF Jardiance 10 mg Tablet 10 mg PO DAILY 30 Days Qty: 30 0RF spironolactone 25 mg Tablet 25 mg PO DAILY 30 Days Qty: 30 0RF bumetanide 2 mg tablet 2 mg PO DAILY Qty: 30 0RF Continued atorvastatin 80 mg tablet 80 mg PO DAILY ipratropium-albuterol 0.5 mg-3 mg(2.5 mg base)/3 mL solution for nebulization 3 ml inhalation 4X/DAY PRN (Reason: sob) Patient Comments: inhale contents of 1 vial ( 3 milliliters ) in nebulizer by mouth... (REFER TO PRESCRIPTION NOTES). liothyronine 25 mcg tablet 25 mcg PO DAILY Patient Comments: TAKE 1 TABLET BY MOUTH ONCE DAILY FOR 90 DAYS tiotropium bromide [Spiriva with HandiHaler] 18 mcg capsule, w/inhalation device 18 mcg INHALATION DAILY Patient Comments: INHALE THE CONTENTS OF 1 CAPSULE TWICE EACH TIME VIA HANDIHALER ONCE DAILY cholecalciferol (vitamin D3) 25 mcg (1,000 unit) Capsule 25 mcg PO DAILY omega-3 fatty acids-vitamin E 1,000 mg Capsule 2 cap PO BID PreserVision AREDS [id number] Capsule 1 cap PO BID lisinopril [Zestril] 20 mg tablet 10 mg PO DAILY Hold Instructions: Resume on 03/18/22. pantoprazole [Protonix] 40 mg tablet,delayed release (DR/EC) 40 mg PO BID 90 Days Qty: 180 0RF sucralfate [Carafate] 1 gram tablet 1 g PO BID 30 Days Qty: 60 2RF Rx Instructions: Start BID administration after TID administration for 30 days has been completed. sucralfate 1 gram tablet 1 g PO TID 30 Days Qty: 90 0RF Rx Instructions: Start BID administration after 30 days of TID administration Held glimepiride 2 mg tablet 2 mg PO DAILY Qty: 3 0RF Hold Instructions: Resume on 05/04/23. Patient Comments: take 1 tablet by mouth once daily WITH FIRST MEAL OF THE DAY Rx Instructions: Hold if glucose less than 130 mg/dl Referrals / Follow Up: Adrianna Nichols DO [Primary Care Provider] - 05/04/23 10:00 am (You have lab orders waiting for you at [facility] to be done on sunday or Sunday) Disposition Disposition (needs filled in before D/C Order can be placed): Home, Self Care
--- NOTE | 2023-04-26 15:36 | CASEMGMT ---
Patient requiring 2lpm and 4lpm with ambulation. Updated script received and sent to [facility]. RN CM in to updated patient regarding discharge. Patient is setup to see [facility] tomorrow. Patient denied further needs or help at discharge. Patient had no further questions or concerns.
--- NOTE | 2023-04-26 16:03 | DS.PCM_ITS ---
Providers Date of Admission: 04/24/23 Primary Care Physician: Dr. Adrianna Nichols DO Consultations 04/25/23 07:00 Consult: Cardiology Routine Consulting Provider: Trlel Kendrick Reason for Consult: CHF exacerbation EMERGENT Consult: No MD Notified: Yes Date Notified: 04/25/23 Time Notified: 06:27 Method of Notification: Text Reason For Visit: ACUTE HYPOXIA 2/2 ACUTE ON CHRONIC HEART FAILURE Diagnosis Discharge Diagnosis (1) Acute on chronic heart failure with preserved ejection fraction (HFpEF): Status: Acute Code(s): I50.33 - Acute on chronic diastolic (congestive) heart failure (2) Renal insufficiency: Status: Chronic Code(s): N28.9 - Disorder of kidney and ureter, unspecified (3) Nonrheumatic aortic (valve) stenosis: Status: Chronic Code(s): I35.0 - Nonrheumatic aortic (valve) stenosis (4) Essential hypertension: Status: Chronic Code(s): I10 - Essential (primary) hypertension (5) Anemia: Status: Chronic Code(s): D64.9 - Anemia, unspecified Qualifiers: Anemia type: iron deficiency Iron deficiency anemia type: other iron deficiency Qualified Code(s): D50.8 - Other iron deficiency anemias Medications at Discharge Home Medications atorvastatin 80 mg tablet 80 mg PO DAILY CHOLESTEROL 05/02/21 cholecalciferol (vitamin D3) 25 mcg (1,000 unit) capsule 25 mcg PO DAILY vitamin 05/02/21 ipratropium 0.5 mg-albuterol 3 mg (2.5 mg base)/3 mL nebulization soln 3 ml inhalation 4X/DAY PRN sob 05/02/21 liothyronine 25 mcg tablet 25 mcg PO DAILY THYROID 05/02/21 omega-3 fatty acids-vitamin E 1,000 mg capsule 2 cap PO BID SUPPLEMENT 05/02/21 tiotropium bromide 18 mcg capsule with inhalation device (Spiriva with HandiHaler) 18 mcg inhalation DAILY SOB 05/02/21 vitamins A,C,[id number] 4,296 mcg-226 mg-90 mg capsule (PreserVision AREDS) 1 cap PO BID vitamin 12/13/21 lisinopril 20 mg tablet (Zestril) 10 mg PO DAILY blood pressure 03/12/22 glimepiride 2 mg tablet 2 mg PO DAILY DM #3 tabs 03/09/23 pantoprazole 40 mg tablet,delayed release (Protonix) 40 mg PO BID 90 days #180 tabs 03/09/23 sucralfate 1 gram tablet 1 g PO TID 30 days #90 tabs 03/23/23 sucralfate 1 gram tablet (Carafate) 1 g PO BID 30 days #60 tabs 03/23/23 bumetanide 2 mg tablet 2 mg PO DAILY #30 tabs 04/26/23 carvedilol 6.25 mg tablet 6.25 mg PO BIDCM 30 days #60 tabs 04/26/23 empagliflozin 10 mg tablet (Jardiance) 10 mg PO DAILY 30 days #30 tabs 04/26/23 spironolactone 25 mg tablet 25 mg PO DAILY 30 days #30 tabs 04/26/23 Hospital Course Operations None Procedures None Summary of Care Provided Minutes Spent on Discharge: 35 Hospital Course: Per HPI: BEULAH BRIGHT, is a 82 M who presented to the emergency department at [facility] on 04/24/2023 complaining of shortness of breath. Patient stated his shortness of breath had started today after he walked out of his nephrology office appointment. He stated he was barely able to make at home and then decided to come the emergency department because he was so short of breath. He indicated he was fine before that. He typically sleeps in a recliner and has been doing so for 6 years as he was taking care of his who was in hospice. She has since been . He indicates he had multiple hospitalizations since somebody took him off his torsemide and replaced it with Lasix. He feels that the Lasix does not work as well. I did ask him why they took him off his torsemide he stated it was because it gave him gout. He reported recently his primary care physician instructed him to take 3 tablets of Lasix a day but this did not work either. He did not notice any increased urinary output with the increased dose of Lasix. He is not sure if he is gained weight as he is not able to see the numbers on his scale anymore. He denies any worsening swelling and again he sleeps in a recliner so he does not complain any paroxysmal nocturnal dyspnea or orthopnea. He is on chronic oxygen at 2 L and is compliant with this. He states he does not have a known history of sleep apnea. He had a recent echocardiogram done in February 2023 that demonstrated mild concentric LVH, left ventricular EF of 65% with moderate diffuse aortic valve calcification and moderate aortic stenosis with mild aortic valve insu fficiency. Vital signs on presentation showed a temperature of 98.7, heart rate 113, blood pressure was 175/65, respiratory rate was 22 and oxygen saturations were 95% on 4 L nasal cannula. I do not have an oxygen saturation on his baseline of 2 L. His CBC shows a normal white count with a stable anemia having a hemoglobin of 9.3 and chronic thrombocytopenia with a platelet count of 103,000 which is his baseline. He has a minimal left shift with a 76.7% neutrophilia. His chemistry panel shows chronic stable renal dysfunction having a BUN of 43 and a serum creatinine of 2.0. Serum glucose was 200. Troponin was 47 and his BNP was 143.1. Given his obesity his BNP is likely higher when adjusted for his weight. Chest x-ray is consistent with bilateral congestion and prominence in the i nterstitium. EKG shows first-degree heart block with a prolonged IL interval, normal QT interval with mild tachycardia and no ST-T wave changes concerning for acute ischemia. He was given IV Lasix 40 mg x 1 dose in the emergency department and request for admission was made. As noted the patient is concerned that his Lasix is not working so I will transition to Bumex and give another 2 mg at the time of admission. Hospital Course: 1. Acute on chronic hypoxia secondary to acute on chronic diastolic CHF with elevated troponin secondary to demand ischemia/HTN/HLD?82-year-old male with a history of diastolic CHF presents to the hospital with increased shortness of b reath. Had to have extensive discussion with him on his tendency to change his medications without notifying his doctor, there is been several instances where he is either decrease the dose or discontinue the medication on his own. We had an extensive discussion his this is an appropriate as it leads to significant confusion between his healthcare team as to what he is actually taking and also discussed with him that sometimes what he feels is not a medication side effect but could be a sign of a different disease that he is ignoring because he is not seeking medical help at that time. Cardiology was consulted for his elevated troponin they felt it was due to demand ischemia given his heart failure. We did place him on Bumex 2 mg IV twice daily and he was also started on Jardiance as his GFR was greater than 20 and Aldactone and Coreg. I will hold his glimepiride on discharge given the addition of Jardiance and I discussed with his PCP on the day of discharge his lab work today which did show a slight increase in his creatinine though not abnormal from his baseline significantly and he does have lab work already ordered by his PCP to be obtained at an outside hospital. He does have an appointment on 05/04/2023 with his primary care doctor. Given his slight increase in his creatinine I also elected to change his Bumex to just 2 mg p.o. daily. I do recommend close outpatient monitoring with cardiology as well as nephrology. I discussed with him the plan for discharge today expressed understanding of the risk benefits going home and is okay with going home today. 2. Type 2 diabetes, chronic anemia, chronic thrombocytopenia, hypothyroidism, GI bleeding are all chronic medical conditions which complicate his care. His home medications were continued where appropriate Physical Exam Narrative General: Alert, Oriented x3, Cooperative, No apparent distress HEENT: Atraumatic, PERRLA, EOMI, Normocephalic Oral: Moist Mucosa Neck: Supple, No JVD Lungs: Diminished, Normal air movement, No rhonchi, No wheeze, mild bilateral crackles Cardiovascular: Regular rate, Regular Rhythm, Normal S1, Normal S2, No murmurs Abdomen: Soft, Non Tender, Non-Distended, No Hepato-splenomegaly Extremities: Trace edema, Capillary Refill Less than 3 Seconds Skin: No rashes, No breakdown Musculoskeletal: No Tenderness to Palpation of Joints or Extremities Neurological: No focal neurological deficits, Motor Exam 5/5 strength throughout, Sensory exam intact to light touch and pain Psych/Mental Status: Normal Affect, Appropriate Weight / BMI Weight Weight: 190 lb 0.615 oz Body Mass Index (BMI) 31.6 ABG / Lab / Microbiology Data 04/26/23 07:15 04/26/23 07:15 Laboratory: Laboratory Results - last 24 hr 04/25/23 16:22: POC Glucose 128 H 04/25/23 22:30: POC Glucose 157 H 04/26/23 06:11: POC Glucose 119 H 04/26/23 07:15: WBC 5.7, RBC 3.42 L, Hgb 9.4 L, Hct 30.2 L, MCV 88.3, MCH 27.5, MCHC 31.1 L, RDW Std Deviation 46.8 H, RDW Coeff of John 14.6, Plt Count 123 L, MPV 11.7, Immature Gran % (Auto) 0.200, Neut % (Auto) 59.6, Lymph % (Auto) 24.7, [place] % (Auto) 8.8, Eos % (Auto) 6.0 H, Baso % (Auto) 0.7, Absolute Neuts (auto) 3.4, Absolute Lymphs (auto) 1.40, Nucleated RBC % 0, Sodium 142, Potassium 3.8, Chloride 101, Carbon Dioxide 31.0, Anion Gap 10, BUN 58 H, Creatinine 2.43 H, Estim Creat Clear Calc 23.25, Est GFR (MDRD) Af Amer 33 L, Est GFR (MDRD) Non-Af 27 L, BUN/Creatinine Ratio 23.9 H, Glucose 129 H, Calcium 9.9 04/26/23 11:06: POC Glucose 209 H Microbiology: Microbiology 04/24/23 16:54 Mucosa - Nasopharyngeal SARS-CoV-2, Influenza & RSV (PCR) - Final D/C Instructions Discharge Diet: Low fat / Low cholesterol and 6 Cup Fluid Restriction Call your doctor if you observe: Fever of 101 or Higher, Shortness of breath, Dizziness, Fainting spells, Swelling in the ankles, Chest pain and Increased palpitations (irregular heartbeat) Meaningful Use Info Meaningful Use Diagnoses (Choose all that apply): None applicable Discharge Plan Admission Admit Date/Time: 04/24/23 19:41 Attending Provider: John Anders Primary Care Provider: Adrianna Nichols Consulting Providers: Michelle Washburn; Trell Kendrick Instructions Additional Instructions / Restrictions: You will need to follow-up with your PCP early next week for blood work to monitor your renal function as well as your blood sugars as you were started on Jardiance which is a diabetic medication that helps with your heart failure. We also placed you on spironolactone as well as bumetanide which are diuretics to help keep fluid off of your heart is much as possible. We also recommend restarting her Coreg to control your blood pressure and your heart rate. Discharge Orders/Prescriptions Prescriptions: New carvedilol 6.25 mg Tablet 6.25 mg PO BIDCM 30 Days Qty: 60 0RF Jardiance 10 mg Tablet 10 mg PO DAILY 30 Days Qty: 30 0RF spironolactone 25 mg Tablet 25 mg PO DAILY 30 Days Qty: 30 0RF bumetanide 2 mg tablet 2 mg PO DAILY Qty: 30 0RF Continued atorvastatin 80 mg tablet 80 mg PO DAILY ipratropium-albuterol 0.5 mg-3 mg(2.5 mg base)/3 mL solution for nebulization 3 ml inhalation 4X/DAY PRN (Reason: sob) Patient Comments: inhale contents of 1 vial ( 3 milliliters ) in nebulizer by mouth... (REFER TO PRESCRIPTION NOTES). liothyronine 25 mcg tablet 25 mcg PO DAILY Patient Comments: TAKE 1 TABLET BY MOUTH ONCE DAILY FOR 90 DAYS tiotropium bromide [Spiriva with HandiHaler] 18 mcg capsule, w/inhalation device 18 mcg INHALATION DAILY Patient Comments: INHALE THE CONTENTS OF 1 CAPSULE TWICE EACH TIME VIA HANDIHALER ONCE DAILY cholecalciferol (vitamin D3) 25 mcg (1,000 unit) Capsule 25 mcg PO DAILY omega-3 fatty acids-vitamin E 1,000 mg Capsule 2 cap PO BID PreserVision AREDS [id number] Capsule 1 cap PO BID lisinopril [Zestril] 20 mg tablet 10 mg PO DAILY Hold Instructions: Resume on 03/18/22. pantoprazole [Protonix] 40 mg tablet,delayed release (DR/EC) 40 mg PO BID 90 Days Qty: 180 0RF sucralfate [Carafate] 1 gram tablet 1 g PO BID 30 Days Qty: 60 2RF Rx Instructions: Start BID administration after TID administration for 30 days has been completed. sucralfate 1 gram tablet 1 g PO TID 30 Days Qty: 90 0RF Rx Instructions: Start BID administration after 30 days of TID administration Held glimepiride 2 mg tablet 2 mg PO DAILY Qty: 3 0RF Hold Instructions: Resume on 05/04/23. Patient Comments: take 1 tablet by mouth once daily WITH FIRST MEAL OF THE DAY Rx Instructions: Hold if glucose less than 130 mg/dl Referrals / Follow Up: Adrianna Nichols DO [Primary Care Provider] - 05/04/23 10:00 am (You have lab orders waiting for you at [facility] to be done on sunday or Sunday) Disposition Disposition (needs filled in before D/C Order can be placed): Home, Self Care Charges/Coding Visit Charges Inpatient E&M: 04967 Disch Hosp >30min
== END 2023-04-26 16:24 | disposition home health service (06) | DRG 291 ==
LOC: ED 18:47 → PCU 19:53
PROVIDERS: Admitting Provider Internal Medicine; Emergency Provider Student in an Organized Health Care Education/Training Program; PCP Family Medicine; Visit Provider Family Medicine
DX: I13.0 Hypertensive heart and chronic kidney disease with heart failure and stage 1 through stage 4 chronic kidney disease, or unspecified chronic kidney disease (principal); J96.11 Chronic respiratory failure with hypoxia; I50.33 Acute on chronic diastolic (congestive) heart failure; J44.9 Chronic obstructive pulmonary disease, unspecified; I24.89 Other forms of acute ischemic heart disease; E11.22 Type 2 diabetes mellitus with diabetic chronic kidney disease; D69.6 Thrombocytopenia, unspecified; D50.8 Other iron deficiency anemias; E03.9 Hypothyroidism, unspecified; I65.23 Occlusion and stenosis of bilateral carotid arteries; I35.0 Nonrheumatic aortic (valve) stenosis; N18.9 Chronic kidney disease, unspecified; I25.10 Atherosclerotic heart disease of native coronary artery without angina pectoris; E78.2 Mixed hyperlipidemia; G47.30 Sleep apnea, unspecified; I25.2 Old myocardial infarction; E66.9 Obesity, unspecified; Z79.84 Long term (current) use of oral hypoglycemic drugs; Z87.891 Personal history of nicotine dependence; Z68.33 Body mass index [BMI] 33.0-33.9, adult; Z99.81 Dependence on supplemental oxygen; Z86.73 Personal history of transient ischemic attack (TIA), and cerebral infarction without residual deficits; Z79.899 Other long term (current) drug therapy; Z79.890 Hormone replacement therapy
CPT/HCPCS: 36415; 71045; 80048; 80053; 80061; 82962; 83735; 83880; 84100; 84443; 84484; 85025; 87631; 93005; 94640; 96372; 96374; 96375; 96376; 97162; 97802; 99221; 99252; 99285; A4216; G0378; G0463; J1938

== ENCOUNTER 2023-04-30 21:39 | Emergency (ER) | payer MEDICARE, SELFPAY ==
[2023-04-30 21:40] VITALS: BP 138/117; PULSE 78; RESP 26; TEMP 36.4; O2SAT 97; BMI 33.6
[2023-04-30 21:46] VITALS: O2SAT 98
[2023-04-30 21:48] VITALS: BP 150/46; PULSE 75; RESP 19; O2SAT 98
--- NOTE | 2023-04-30 22:27 | EDS_ITS ---
HPI History of Present Illness Chief Complaint: Shortness of Breath Informant: patient Narrative Narrative: Patient is 82-year-old male with past medical history of of chronic respiratory failure wearing 2 to 4 L nasal cannula oxygen 02/10 with history of COPD and congestive heart failure as well as hypertension and hyperlipidemia. He was seen in the ER and admitted to the hospital in the last week secondary to increased shortness of breath. At that time he had medications adjusted secondary to his symptoms and the fact he felt that his Lasix was not controlling his congestive heart failure. Patient states he is taking his medications as directed but today felt increased shortness of breath at rest that worsens with motion and therefore comes in for evaluation. He states that there is no fevers or chills no chest pain nausea or vomiting associated with this [facility] Medical History Acute and chronic respiratory failure with hypoxia Aortic valve stenosis, acquired Atherosclerotic heart disease of [place] coronary artery without angina pectoris CAD (coronary artery disease) Cardiology follow-up encounter Chronic respiratory failure with hypoxia COPD (chronic obstructive pulmonary disease) Diabetes Diabetes mellitus, type 2 Diastolic CHF Former smoker Former tobacco use High cholesterol History of CAD (coronary artery disease) History of echocardiogram History of GI bleed History of left heart catheterization (LHC) (~03/15/22) HLD (hyperlipidemia) HTN (hypertension) Hypertension Hypothyroidism Kidney disease Loss of hearing Low iron Mild left ventricular hypertrophy Myocardial infarct No natural teeth Nonrheumatic aortic (valve) stenosis Obesity On home oxygen therapy Polyarthralgia Poor historian Shortness of breath on exertion Symptomatic anemia Syncope Thyroid disease TIA (transient ischemic attack) Wears glasses Home Medications atorvastatin 80 mg tablet 80 mg PO DAILY CHOLESTEROL 05/02/21 [History Last Taken 02/14/23] cholecalciferol (vitamin D3) 25 mcg (1,000 unit) capsule 25 mcg PO DAILY vitamin 05/02/21 [History Last Taken 02/15/23] ipratropium 0.5 mg-albuterol 3 mg (2.5 mg base)/3 mL nebulization soln 3 ml inhalation 4X/DAY PRN sob 05/02/21 [History Last Taken 02/15/23] liothyronine 25 mcg tablet 25 mcg PO DAILY THYROID 05/02/21 [History Last Taken 02/15/23] omega-3 fatty acids-vitamin E 1,000 mg capsule 2 cap PO BID SUPPLEMENT 05/02/21 [History Last Taken 02/15/23] tiotropium bromide 18 mcg capsule with inhalation device (Spiriva with HandiHaler) 18 mcg inhalation DAILY SOB 05/02/21 [History Last Taken 02/15/23] vitamins A,C,J-sjhp-jszkua 4,296 mcg-226 mg-90 mg capsule (PreserVision AREDS) 1 cap PO BID vitamin 12/13/21 [History Last Taken 02/15/23] lisinopril 20 mg tablet (Zestril) 10 mg PO DAILY blood pressure 03/12/22 [History Last Taken 02/15/23] glimepiride 2 mg tablet 2 mg PO DAILY DM #3 tabs 03/09/23 [Rx Last Taken 02/15/23] pantoprazole 40 mg tablet,delayed release (Protonix) 40 mg PO BID 90 days #180 tabs 03/09/23 [Rx Last Taken Unknown] sucralfate 1 gram tablet 1 g PO TID 30 days #90 tabs 03/23/23 [Rx Last Taken Unknown] sucralfate 1 gram tablet (Carafate) 1 g PO BID 30 days #60 tabs 03/23/23 [Rx Last Taken Unknown] bumetanide 2 mg tablet 2 mg PO DAILY #30 tabs 04/26/23 [Rx Last Taken Unknown] carvedilol 6.25 mg tablet 6.25 mg PO BIDCM 30 days #60 tabs 04/26/23 [Rx Last Taken Unknown] empagliflozin 10 mg tablet (Jardiance) 10 mg PO DAILY 30 days #30 tabs 04/26/23 [Rx Last Taken Unknown] spironolactone 25 mg tablet 25 mg PO DAILY 30 days #30 tabs 04/26/23 [Rx Last Taken Unknown] Allergy/AdvReac Type Severity Reaction Status Date / Time codeine AdvReac Upset Verified 04/30/23 21:45 Stomach Family History Mother CVA (cerebral vascular accident) Heart disease Myocardial infarction Hx of CABG Hypertension Father CVA (cerebral vascular accident) Heart disease Surgical History S/P cataract extraction Social History household members: none housing: house Smoking Status: Former smoker how long ago did patient quit smoking: Quit 2011, prior 1 ppd since teen. alcohol intake: former year quit: 2010 substance use type: does not use ROS ROS ED Constitutional Constitutional ED: Denies chills or fever(s) Eyes Eyes: Denies change in vision ENT ENT ED: Denies rhinorrhea or sore throat Cardiovascular Cardiovascular: Denies chest pain, palpitations or racing heartbeat Respiratory/Chest Respiratory/Chest: Reports dyspnea and dyspnea on exertion; Denies cough Gastrointestinal Gastrointestinal: Denies abdominal pain, diarrhea, nausea or vomiting Genitourinary Genitourinary ED: Denies dysuria Musculoskeletal Musculoskeletal: Denies myalgias Integumentary Denies rash Neurologic Neurologic: Denies headache(s) Hematologic/Lymphatic Hematologic/Lymphatic: Denies easy bleeding or easy bruising EXAM Physical Exam Const Vital Signs: 04/30/23 21:40 04/30/23 21:46 04/30/23 21:48 Temperature 97.6 F L Temperature Source Temporal Pulse Rate 78 75 Respiratory Rate 26 H 19 H Respiratory Effort Short of Breath Respiratory Pattern Tachypnea Blood Pressure 138/117 H 150/46 H Blood Pressure Mean 124 80 Pulse Ox 97 98 Oxygen Delivery Method Nasal Cannula Nasal Cannula Nasal Cannula Oxygen Flow Rate (L/min) 4 4 4 04/30/23 22:30 04/30/23 22:30 04/30/23 23:00 Temperature Temperature Source Pulse Rate 76 68 73 Respiratory Rate 24 H 12 22 H Respiratory Effort Respiratory Pattern Tachypnea Blood Pressure 142/69 H 149/43 H Blood Pressure Mean 93 78 Pulse Ox 98 98 Oxygen Delivery Method Nasal Cannula Nasal Cannula Oxygen Flow Rate (L/min) 4 4 05/01/23 00:00 05/01/23 01:00 Temperature Temperature Source Pulse Rate Respiratory Rate 16 20 H Respiratory Effort Respiratory Pattern Blood Pressure Blood Pressure Mean Pulse Ox Oxygen Delivery Method Oxygen Flow Rate (L/min) Positive well nourished, well developed and obese General Appearance ED: well developed; Negative for pallor Nutritional Appearance: obese HEENT Reports dry mucous membranes HEENT Narrative: Mucous membranes are dry and tacky No tongue or lip swelling noted. No oral lesions no airway edema or compromise present Mouth ED: Yes dry mucous membranes Mouth: dry mucous membranes Eyes PERRL and EOMs intact bilaterally General Eye ED: Negative for pale conjunctiva or scleral icterus Neck supple, no meningeal signs and no JVD Resp Resp Narrative: Patient has mild tachypnea with slight accessory muscle use. Breath sounds are diminished throughout with crackles in the bilateral bases consistent with history of CHF with faint expiratory wheeze Cardio regular rate and regular rhythm Cardio Narrative: Radial and carotid pulses equal and symmetric GI non-tender and non-distended GI Narrative: No pulsatile mass or fluid wave noted Auscultation: normoactive bowel sounds Palpation: soft Extremity Extremity Narrative: +1 pitting edema to the bilateral lower extremities that is equal and symmetric Negative Homans' sign bilaterally Neuro oriented x3, CN's II-XII intact bilaterally and no sensory deficits noted Sensorium / Orientation: alert Motor Exam: strength 5/5 throughout Psych mental status grossly normal Skin no rashes or lesions noted and no wounds Skin Narrative: Skin turgor is slightly increased General Skin Exam: Negative for jaundice or pallor MDM MDM MDM Narrative Medical decision making narrative: Patient arrived to the ER satting in the mid to high 90s on 4 L nasal cannula oxygen. He states he wears 2 L at rest and will increase to 4 L with activity. Demential diagnosis is for congestive heart failure exacerbation versus pneumonia versus acute on chronic kidney injury versus acute blood loss anemia versus electrolyte derangement. X-ray was obtained which revealed bibasilar opacities that were stable/similar nature to his previous x-ray consistent with congestive heart failure. Patient's hemoglobin is low at 8.3 but chart review reveals this is near his baseline which is roughly 8.5-9.5 and this is above the transfusion value. Patient's kidney function is at baseline and there are no signs of clinically significant electrolyte derangement. The patient was ambulated in the ER and his pulse ox remained in the mid to high 90s with ambulation. Therefore at this time as the patient is not requiring a transfusion as his hemoglobin is above 7 his chest x-ray shows stable findings consistent with congestive heart failure and he is not in acute kidney injury and also he can ambulate without desaturation do not feel there is need for admission and patient will otherwise be discharged home History & Record Review Discussion w/independent historian: Patient Lab Data Attestation: I reviewed the patient's lab results. Labs: Laboratory Results - last 24 hr 04/30/23 21:57 WBC 4.3 L RBC 3.08 L Hgb 8.3 L Hct 28.0 L MCV 90.9 MCH 26.9 L MCHC 29.6 L RDW Std Deviation 46.7 H RDW Coeff of John 14.2 Plt Count 109 L MPV 11.9 Immature Gran % (Auto) 0.200 Neut % (Auto) 60.3 Lymph % (Auto) 24.1 [place] % (Auto) 9.3 Eos % (Auto) 5.6 H Baso % (Auto) 0.5 Absolute Neuts (auto) 2.6 Absolute Lymphs (auto) 1.03 Nucleated RBC % 0 Sodium 147 H Potassium 4.2 Chloride 112 H Carbon Dioxide 34.0 H Anion Gap 1 L BUN 75 H Creatinine 2.04 H Estim Creat Clear Calc 28.55 Est GFR (MDRD) Af Amer 40 L Est GFR (MDRD) Non-Af 33 L BUN/Creatinine Ratio 36.8 H Glucose 131 H Calcium 9.0 B-Natriuretic Peptide 292.3 H Radiography Diagnostic Testing: Clinical Impression(s) from Imaging Studies Chest X-Ray 04/30/23 22:38 IMPRESSION: 1. No evidence of acute cardiopulmonary disease. 2. Stable mild increased interstitial opacities in the bilateral lower lungs possibly representing chronic interstitial lung disease. Electronically Signed: Alexis Perera DO at 23:07 EST Reading Location ID and State: [facility] / [place] Tel , Service support , Chest x-ray as interpreted by the emergency medicine physician reveals interstitial bibasilar opacities similar nature to previous x-ray most consistent with CHF Discharge Plan Triage Chief Complaint: Shortness of Breath ED Provider: Frederick Logan Dx/Rx/DC Orders Clinical Impression: Congestive heart failure (CHF), Anemia, Essential hypertension, COPD (chronic obstructive pulmonary disease) Instructions: ED Heart Failure, Congestive (CHF) Prescriptions: No Action atorvastatin 80 mg tablet 80 mg PO DAILY ipratropium-albuterol 0.5 mg-3 mg(2.5 mg base)/3 mL solution for nebulization 3 ml inhalation 4X/DAY PRN (Reason: sob) Patient Comments: inhale contents of 1 vial ( 3 milliliters ) in nebulizer by mouth... (REFER TO PRESCRIPTION NOTES). liothyronine 25 mcg tablet 25 mcg PO DAILY Patient Comments: TAKE 1 TABLET BY MOUTH ONCE DAILY FOR 90 DAYS tiotropium bromide [Spiriva with HandiHaler] 18 mcg capsule, w/inhalation d evice 18 mcg INHALATION DAILY Patient Comments: INHALE THE CONTENTS OF 1 CAPSULE TWICE EACH TIME VIA HANDIHALER ONCE DAILY cholecalciferol (vitamin D3) 25 mcg (1,000 unit) Capsule 25 mcg PO DAILY omega-3 fatty acids-vitamin E 1,000 mg Capsule 2 cap PO BID PreserVision AREDS [id number] Capsule 1 cap PO BID lisinopril [Zestril] 20 mg tablet 10 mg PO DAILY Hold Instructions: Resume on 03/18/22. carvedilol 6.25 mg Tablet 6.25 mg PO BIDCM 30 Days Qty: 60 0RF Jardiance 10 mg Tablet 10 mg PO DAILY 30 Days Qty: 30 0RF spironolactone 25 mg Tablet 25 mg PO DAILY 30 Days Qty: 30 0RF bumetanide 2 mg tablet 2 mg PO DAILY Qty: 30 0RF glimepiride 2 mg tablet 2 mg PO DAILY Qty: 3 0RF Hold Instructions: Resume on 05/04/23. Patient Comments: take 1 tablet by mouth once daily WITH FIRST MEAL OF THE DAY Rx Instructions: Hold if glucose less than 130 mg/dl pantoprazole [Protonix] 40 mg tablet,delayed release (DR/EC) 40 mg PO BID 90 Days Qty: 180 0RF sucralfate [Carafate] 1 gram tablet 1 g PO BID 30 Days Qty: 60 2RF Rx Instructions: Start BID administration after TID administration for 30 days has been completed. sucralfate 1 gram tablet 1 g PO TID 30 Days Qty: 90 0RF Rx Instructions: Start BID administration after 30 days of TID administration Primary Care Provider: Adrianna Nichols Referrals: Adrianna Nichols DO [Primary Care Provider] - Activity Restrictions/Additional Instructions: Your workup today shows that everything is stable compared to your previous admission. Continue all of your medications as directed by your doctor. Continue to wear your oxygen between 2 and 4 L as needed for shortness of breath sensation and return to the ER should you have any further concerns Disposition Disposition: Home, Self Care
[2023-04-30 22:30] VITALS: BP 142/69; PULSE 68; PULSE 76; RESP 12; RESP 24; O2SAT 98
[2023-04-30] MEDS: Ipratropium/Albuterol Sulfate 3 ML AMPUL.NEB INHALATION (22:30)
[2023-04-30 22:36] LABS: Absolute Lymphocyte Count 1.03 X10^3/uL (0.83-4.51); Absolute Neutrophil Count 2.6 X10^3/uL (2.0-7.7); Basophil# 0.02 X10^3/uL; Basophil% 0.5 % (0-1); Eosinophil# 0.24 X10^3/uL; Eosinophils% 5.6 % (0-5); Hemoglobin 8.3 g/dL (13.0-16.5); Lymphocyte # 1.03 X10^3/ul (0.83-4.51); Lymphocyte % 24.1 % (19-41); Mean Corp Hgb Conc 29.6 g/dL (32-36); Mean Corpuscular Hgb 26.9 pg (27.0-32.0); Mean Corpuscular Volume 90.9 fL (80-94); Mean Platelet Vol. 11.9 fl (6.2-12.0); Monocyte% 9.3 % (0-10); NRBC Flagged by Analyzer 0 % (0-5); Neutrophil # 2.58 X10^3/uL (2.7-7.7); Neutrophil % 60.3 % (47-70); Platelet Count 109 K/mm3 (150-450); RBC Distribution Width CV 14.2 % (11.6-14.6); RBC Distribution Width SD 46.7 fl (35.1-43.9); Red Blood Count 3.08 M/mm3 (4.6-6.2); White Blood Count 4.3 K/mm3 (4.4-11.0)
--- NOTE | 2023-04-30 22:38 | RAD_ITS ---
INDICATION: SOB EXAMINATION/TECHNIQUE: X-RAY - XR Chest 1 View COMPARISON: 04/24/2023. FINDINGS: LINES/DEVICES: None. LUNGS: Stable mild interstitial opacities in the lung bases. No focal infiltrate is identified. No evidence of a pleural effusion or a pneumothorax. MEDIASTINUM AND CARDIOVASCULAR STRUCTURES: Cardiac silhouette is normal in size and contour. Mediastinum is unremarkable. BONES AND SOFT TISSUES: No acute abnormality. RAD/Chest 1 View (Portable) IMPRESSION: 1. No evidence of acute cardiopulmonary disease. 2. Stable mild increased interstitial opacities in the bilateral lower lungs possibly representing chronic interstitial lung disease. Electronically Signed: Alexis Perera DO at 23:07 EST ,
[2023-04-30 22:50] LABS: Anion Gap 1 (5-15); BUN 75 mg/dL (7-18); BUN/Creat Ratio 36.8 RATIO (10-20); Chloride 112 mmol/L (98-107); Creatinine, Serum 2.04 mg/dL (0.70-1.30); EST Glomerular Filtration Rate 33 mL/min (>60); Est Glom Filt Rate - Afr Amer 40 mL/min (>60); Estimated Creatinine Clearance 28.55 ml/min; Glucose 131 mg/dL (74-106); Potassium 4.2 mmol/L (3.5-5.1); Sodium Level 147 mmol/L (136-145)
[2023-04-30 22:54] LABS: BNP,B-Type NATRIURETIC PEPTIDE 292.3 pg/mL (0-100)
[2023-04-30 23:00] VITALS: BP 149/43; PULSE 73; RESP 22; O2SAT 98
[2023-05-01] VITALS (7 sets, daily range): BP systolic 138; BP diastolic 56; PULSE 74; RESP 16–22; TEMP 36.3; O2SAT 95–97
== END 2023-05-01 05:21 | disposition home or self-care (01) ==
PROVIDERS: Emergency Provider Emergency Medicine; PCP Family Medicine; Visit Provider Emergency Medicine
DX: R06.02 Shortness of breath (principal); J44.9 Chronic obstructive pulmonary disease, unspecified; I11.0 Hypertensive heart disease with heart failure; I50.30 Unspecified diastolic (congestive) heart failure; E11.9 Type 2 diabetes mellitus without complications; Z87.891 Personal history of nicotine dependence; D64.9 Anemia, unspecified; I25.10 Atherosclerotic heart disease of native coronary artery without angina pectoris; E78.00 Pure hypercholesterolemia, unspecified; I25.2 Old myocardial infarction; Z99.81 Dependence on supplemental oxygen; Z86.73 Personal history of transient ischemic attack (TIA), and cerebral infarction without residual deficits; Z79.899 Other long term (current) drug therapy; E03.9 Hypothyroidism, unspecified; Z79.84 Long term (current) use of oral hypoglycemic drugs; Z98.49 Cataract extraction status, unspecified eye
CPT/HCPCS: 71045; 80048; 83880; 85025; 93005; 94640; 99283; A4216

== ENCOUNTER 2023-05-04 17:27 | Outpatient (RCR) | payer MEDICARE, SELFPAY ==
[2023-05-04 17:34] LABS: Hematocrit 29.6 % (40-54); Hemoglobin 8.8 g/dL (13.0-16.5); Mean Corp Hgb Conc 29.7 g/dL (32-36); Mean Corpuscular Hgb 27.3 pg (27.0-32.0); Mean Corpuscular Volume 91.9 fL (80-94); Mean Platelet Vol. 12.2 fl (6.2-12.0); Platelet Count 122 K/mm3 (150-450); RBC Distribution Width CV 14.1 % (11.6-14.6); RBC Distribution Width SD 47.2 fl (35.1-43.9); Red Blood Count 3.22 M/mm3 (4.6-6.2)
[2023-05-04 17:47] LABS: ALB/GLOB Ratio 0.9 RATIO (0.9-2.4); AST(SGOT) 17 U/L (15-37); Alanine Aminotransfer ALT/SGPT 23 U/L (16-61); Albumin, Serum 3.2 g/dL (3.2-5.0); Alkaline Phosphatase 74 U/L (45-117); Anion Gap 4 (5-15); BUN 48 mg/dL (7-18); BUN/Creat Ratio 22.9 RATIO (10-20); Calcium,Total 10.5 mg/dL (8.5-10.1); Chloride 102 mmol/L (98-107); EST Glomerular Filtration Rate 32 mL/min (>60); Est Glom Filt Rate - Afr Amer 39 mL/min (>60); Globulin 3.6 g/dL (2.2-4.2); Glucose 212 mg/dL (74-106); Potassium 4.3 mmol/L (3.5-5.1); Protein, Total 6.8 g/dL (6.4-8.2); Sodium Level 143 mmol/L (136-145)
[2023-05-04 17:55] LABS: BNP,B-Type NATRIURETIC PEPTIDE 253.6 pg/mL (0-100)
== END 2023-05-10 18:00 | disposition home or self-care (01) ==
LOC: HHLAB 17:27
PROVIDERS: PCP Family Medicine; Visit Provider Family Medicine
DX: I11.0 Hypertensive heart disease with heart failure (principal)
CPT/HCPCS: 80053; 83880; 85027

== ENCOUNTER 2023-06-27 13:06 | Emergency (ER) | payer MEDICARE, SELFPAY ==
[2023-06-27] VITALS (9 sets, daily range): BP systolic 104–148; BP diastolic 47–90; PULSE 78–87; RESP 10–24; TEMP 36.4; O2SAT 96–99
--- NOTE | 2023-06-27 13:21 | RAD_ITS ---
INDICATION: Shortness of breath EXAMINATION/TECHNIQUE: X-RAY - XR Chest 1 View COMPARISON: Prior study dated: 04/30/2023 FINDINGS: LINES/DEVICES: None. LUNGS: No consolidation, edema or effusion. No pneumothorax. Mild scarring in the lower lungs. MEDIASTINUM AND CARDIOVASCULAR STRUCTURES: Cardiac silhouette not enlarged. Central airways and mediastinal contour are unremarkable. BONES AND SOFT TISSUES: No demonstrated acute osseous changes. RAD/Chest 1 View (Portable) IMPRESSION: No radiographic evidence of acute cardiopulmonary disease. Electronically Signed: Jay Dowd MD at 13:55 EDT ,
--- NOTE | 2023-06-27 13:22 | ED.VIS.DYS ---
HPI History of Present Illness Chief Complaint: Shortness of Breath Narrative Narrative: 83-year-old male past medical history of previous GI bleed, COPD on oxygen 2 L at home presents via EMS with increasing shortness of breath, and weakness. He states he is concerned because previously, he felt weak and was found to have a low hemoglobin. He was transfused a unit and then released from the hospital, and 5 days later he reports that he had a return and received 2 more units. He states that gastroenterology, Dr. Friend, has cauterized his ulcers twice. He is concerned that he is has bleeding ulcers again although he denies any black stool. This is because he went to get up from the couch, and felt lightheaded and weak and fell backwards onto the couch. He did not injure himself, did not pass out, blood is unsure why he has had generalized weakness. He denies any chest pain, and may have increased shortness of breath over his baseline. [facility] Medical History Acute and chronic respiratory failure with hypoxia Aortic valve stenosis, acquired Atherosclerotic heart disease of [place] coronary artery without angina pectoris CAD (coronary artery disease) Cardiology follow-up encounter Chronic respiratory failure with hypoxia COPD (chronic obstructive pulmonary disease) Diabetes Diabetes mellitus, type 2 Diastolic CHF Former smoker Former tobacco use High cholesterol History of CAD (coronary artery disease) History of echocardiogram History of GI bleed History of left heart catheterization (LHC) (~03/15/22) HLD (hyperlipidemia) HTN (hypertension) Hypertension Hypothyroidism Kidney disease Loss of hearing Low iron Mild left ventricular hypertrophy Myocardial infarct No natural teeth Nonrheumatic aortic (valve) stenosis Obesity On home oxygen therapy Polyarthralgia Poor historian Shortness of breath on exertion Symptomatic anemia Syncope Thyroid disease TIA (transient ischemic attack) Wears glasses Home Medications atorvastatin 80 mg tablet 80 mg PO DAILY CHOLESTEROL 05/02/21 [History Last Taken 02/14/23] cholecalciferol (vitamin D3) 25 mcg (1,000 unit) capsule 25 mcg PO DAILY vitamin 05/02/21 [History Last Taken 02/15/23] ipratropium 0.5 mg-albuterol 3 mg (2.5 mg base)/3 mL nebulization soln 3 ml inhalation 4X/DAY PRN sob 05/02/21 [History Last Taken 02/15/23] liothyronine 25 mcg tablet 25 mcg PO DAILY THYROID 05/02/21 [History Last Taken 02/15/23] omega-3 fatty acids-vitamin E 1,000 mg capsule 2 cap PO BID SUPPLEMENT 05/02/21 [History Last Taken 02/15/23] tiotropium bromide 18 mcg capsule with inhalation device (Spiriva with HandiHaler) 18 mcg inhalation DAILY SOB 05/02/21 [History Last Taken 02/15/23] vitamins A,C,I-zkve-wzndrx 4,296 mcg-226 mg-90 mg capsule (PreserVision AREDS) 1 cap PO BID vitamin 12/13/21 [History Last Taken 02/15/23] glimepiride 2 mg tablet 2 mg PO DAILY DM #3 tabs 03/09/23 [Rx Last Taken 02/15/23] sucralfate 1 gram tablet (Carafate) 1 g PO BID 30 days #60 tabs 03/23/23 [Rx Last Taken Unknown] empagliflozin 10 mg tablet (Jardiance) 10 mg PO DAILY 30 days #30 tabs 04/26/23 [Rx Last Taken Unknown] lisinopril 10 mg tablet 10 mg PO DAILY 06/27/23 [History Last Taken Unknown] metoprolol succinate 25 mg tablet,extended release 24 hr 25 mg PO DAILY 06/27/23 [History Last Taken Unknown] pantoprazole 40 mg tablet,delayed release (Protonix) 40 mg PO DAILY 06/27/23 [History Last Taken Unknown] sucralfate 1 gram tablet 1 g PO BID 06/27/23 [History Last Taken Unknown] torsemide 10 mg tablet 10 mg PO DAILY 06/27/23 [History Last Taken Unknown] vitamins A,C,X-mrjd-qjhzhj 4,296 mcg-226 mg-90 mg capsule (PreserVision AREDS) 1 cap PO BID 06/27/23 [History Last Taken Unknown] Allergy/AdvReac Type Severity Reaction Status Date / Time aliskiren [From Valt[place]a] Allergy Intermediate Other Verified 06/27/23 13:12 valsartan [From [place]] Allergy Intermediate Other Verified 06/27/23 13:12 codeine AdvReac Upset Verified 06/27/23 13:12 Stomach Family History Mother CVA (cerebral vascular accident) Heart disease Myocardial infarction Hx of CABG Hypertension Father CVA (cerebral vascular accident) Heart disease Surgical History S/P cataract extraction Social History household members: none housing: house Smoking Status: Former smoker how long ago did patient quit smoking: Quit 2011, prior 1 ppd since teen. alcohol intake: former year quit: 2010 substance use type: does not use ROS ROS ED ROS Narrative Constitutional: No fever, no chills. HEENT: No sore throat. No neck pain. No loss of vision. No rhinorrhea. Cardiovascular: No chest pain. No palpitations. No pedal edema. Respiratory: No cough, positive shortness of breath. Abdominal: No abdominal pain. No nausea. No vomiting. No melena, no hematochezia. Genitourinary: No dysuria. No hematuria. Musculoskeletal: No myalgias. No arthralgias. Neurologic: No headaches. No dizziness. Positive lightheadedness. Generalized weakness, causing him to fall backwards because could not stand. Skin: No rash. No change in color. Psychiatric: No depression. No anxiety. EXAM Physical Exam Narrative Exam Narrative: Afebrile. Vital signs noted. HEENT: Normocephalic. Atraumatic. PERRL, EOMI. Neck soft and supple. No point tenderness or step off. No subconjunctival pallor. Cardiovascular: Regular rate and rhythm. No murmurs, rubs, or gallops appreciated. Respiratory: No tachypnea. Lungs clear to auscultation bilaterally. Decreased breath sounds bilateral bases. Gastrointestinal: Abdomen soft, nontender, with normoactive bowel sounds. No rebound or guarding. Neurological: Awake. Alert. Nonfocal, nonlateralizing. Skin: No rash. Normal color. No pallor. Musculoskeletal: No pedal edema. Full range of motion extremities. Const Vital Signs: 06/27/23 13:07 06/27/23 13:13 06/27/23 13:14 Temperature 97.5 F L Temperature Source Temporal Pulse Rate 86 85 Respiratory Rate 18 24 H Respiratory Effort Short of Breath Labored Respiratory Depth Shallow Respiratory Pattern Tachypnea Blood Pressure 136/58 H 112/90 H Blood Pressure Mean 84 97 Pulse Ox 96 98 Oxygen Delivery Method Nasal Cannula Nasal Cannula Nasal Cannula Oxygen Flow Rate (L/min) 3 3 3 06/27/23 14:09 06/27/23 14:11 Temperature 97.5 F L Temperature Source Temporal Pulse Rate 78 83 Respiratory Rate 10 L 24 H Respiratory Effort Respiratory Depth Respiratory Pattern Blood Pressure 104/61 112/72 Blood Pressure Mean 75 85 Pulse Ox 99 98 Oxygen Delivery Method Nasal Cannula Nasal Cannula Oxygen Flow Rate (L/min) 3 3 MDM MDM MDM Narrative Medical decision making narrative: Comprehensive workup was pursued. In the differential diagnosis of anemia causing weakness versus infectious process such as pneumonia or UTI. EKG was obtained and interpreted by myself independently as normal sinus rhythm with sinus arrhythmia at 79 bpm without ectopy otherwise, no acute ST changes. No STEMI. I reviewed his laboratory work and he has normal white count of 4.8, hemoglobin stable at 8.5, around his baseline, platelet count low at 88. He relates history of chronic thrombocytopenia. I do not feel he requires transfusion emergently. Sodium is normal at 142, potassium 4.0, chloride 107, BUN is elevated at 64 with a creatinine of 2.43, but he has a history of chronic renal insufficiency. Glucose is elevated at 257 but anion gap is normal at 5 so I have low suspicion for diabetic ketoacidosis. High-sensitivity troponin is 31. He has had ongoing shortness of breath over the last day, greater than 6 hours. I do not feel he requires serial enzymes. Urinalysis is negative for infection with 0 WBCs and 0 bacteria, so I do not feel antibiotics are indicated. Chest x-ray interpreted by myself independently shows no evidence of pneumothorax or pneumonia. I reviewed the radiology report which confirms my independent interpretation. At this point in time, I do not have a reason for his near syncope and generalized weakness. I did offer him admission for placement in rehabilitation, but he declined. Additionally, attempt was made to ambulate the patient. He was able to sit up slowly, and did not feel dizzy. Once again, he was concerned that his blood level was low because he needed a pint when he felt this way previously. I reassured him that his hemoglobin is at baseline and that he does not need emergent transfer of packed red blood cells. I feel he can be discharged to follow-up with his primary care provider. Return instructions to the emergency department were reviewed. Patient agreeable to the plan. Disposition is discharged home in stable condition. History & Record Review Discussion w/independent historian: Patient Lab Data Attestation: I reviewed the patient's lab results. Labs: Laboratory Results - last 24 hr 06/27/23 06/27/23 13:10 13:46 WBC 4.8 RBC 3.05 L Hgb 8.5 L Hct 27.5 L MCV 90.2 MCH 27.9 MCHC 30.9 L RDW Std Deviation 47.0 H RDW Coeff of John 14.3 Plt Count 88 L MPV 11.4 Immature Gran % (Auto) 0.200 Neut % (Auto) 62.3 Lymph % (Auto) 23.7 [place] % (Auto) 9.6 Eos % (Auto) 3.8 Baso % (Auto) 0.4 Absolute Neuts (auto) 3.0 Absolute Lymphs (auto) 1.13 Nucleated RBC % 0 Platelet Estimate SLT DEC Sodium 142 Potassium 4.0 Chloride 107 Carbon Dioxide 30.0 Anion Gap 5 BUN 64 H Creatinine 2.43 H Est GFR (MDRD) Af Amer 33 L Est GFR (MDRD) Non-Af 27 L BUN/Creatinine Ratio 26.3 H Glucose 257 H Calcium 9.2 Total Bilirubin 0.70 AST 23 ALT 37 Alkaline Phosphatase 73 Troponin I High Sens 31 Total Protein 6.7 Albumin 3.0 L Globulin 3.7 Albumin/Globulin Ratio 0.8 L Urine Color Yellow Urine Clarity Clear Urine pH 5.0 Ur Specific Gray 1.015 Urine Protein 30 H Urine Glucose (UA) 1000 H Urine Ketones Negative Urine Occult Blood Negative Urine Nitrite Negative Urine Bilirubin Negative Urine Urobilinogen Normal Ur Leukocyte Esterase Negative Urine RBC 0 SEEN Urine WBC 0 SEEN Ur Squamous Epith Cells 0-5 SEEN Urine Bacteria 0 SEEN Urine Mucus RARE Radiography Diagnostic Testing: Clinical Impression(s) from Imaging Studies Chest X-Ray 06/27/23 13:21 IMPRESSION: No radiographic evidence of acute cardiopulmonary disease. Electronically Signed: Jay Dowd MD at 13:55 EDT , Discharge Plan Triage Chief Complaint: Shortness of Breath ED Provider: Dalton Forrest Dx/Rx/DC Orders Clinical Impression: Generalized weakness, Renal insufficiency, COPD (chronic obstructive pulmonary disease), Near syncope Instructions: ED Dyspnea, ED Near-Fainting, Uncertain Cause, ED Weakness (Uncertain Cause) Prescriptions: No Action atorvastatin 80 mg tablet 80 mg PO DAILY ipratropium-albuterol 0.5 mg-3 mg(2.5 mg base)/3 mL solution for nebulization 3 ml inhalation 4X/DAY PRN (Reason: sob) Patient Comments: inhale contents of 1 vial ( 3 milliliters ) in nebulizer by mouth... (REFER TO PRESCRIPTION NOTES). liothyronine 25 mcg tablet 25 mcg PO DAILY Patient Comments: TAKE 1 TABLET BY MOUTH ONCE DAILY FOR 90 DAYS tiotropium bromide [Spiriva with HandiHaler] 18 mcg capsule, w/inhalation device 18 mcg INHALATION DAILY Patient Comments: INHALE THE CONTENTS OF 1 CAPSULE TWICE EACH TIME VIA HANDIHALER ONCE DAILY cholecalciferol (vitamin D3) 25 mcg (1,000 unit) Capsule 25 mcg PO DAILY omega-3 fatty acids-vitamin E 1,000 mg Capsule 2 cap PO BID PreserVision AREDS 14,320-226-200 clsd-md-mchn Capsule 1 cap PO BID Jardiance 10 mg Tablet 10 mg PO DAILY 30 Days Qty: 30 0RF glimepiride 2 mg tablet 2 mg PO DAILY Qty: 3 0RF Hold Instructions: Resume on 05/04/23. Patient Comments: take 1 tablet by mouth once daily WITH FIRST MEAL OF THE DAY Rx Instructions: Hold if glucose less than 130 mg/dl torsemide 10 mg tablet 10 mg PO DAILY PreserVision AREDS 4,296 mcg-226 mg-90 mg capsule 1 cap PO BID lisinopril 10 mg tablet 10 mg PO DAILY sucralfate 1 gram tablet 1 g PO BID pantoprazole [Protonix] 40 mg tablet,delayed release (DR/EC) 40 mg PO DAILY metoprolol succinate 25 mg tablet extended release 24 hr 25 mg PO DAILY sucralfate [Carafate] 1 gram tablet 1 g PO BID 30 Days Qty: 60 2RF Rx Instructions: Start BID administration after TID administration for 30 days has been completed. Primary Care Provider: Adrianna Nichols Referrals: Adrianna Nichols, [Primary Care Provider] - 3-5 Days if not improving Disposition Disposition: Home, Self Care
[2023-06-27] MEDS: 0.9% Normal Saline (500mL Bag) 500 ML 1000 ML IV (13:33)
[2023-06-27 13:38] LABS: Absolute Lymphocyte Count 1.13 X10^3/uL (0.83-4.51); Basophil# 0.02 X10^3/uL; Basophil% 0.4 % (0-1); Eosinophil# 0.18 X10^3/uL; Eosinophils% 3.8 % (0-5); Hematocrit 27.5 % (40-54); Hemoglobin 8.5 g/dL (13.0-16.5); Lymphocyte # 1.13 X10^3/ul (0.83-4.51); Lymphocyte % 23.7 % (19-41); Mean Corp Hgb Conc 30.9 g/dL (32-36); Mean Corpuscular Hgb 27.9 pg (27.0-32.0); Mean Corpuscular Volume 90.2 fL (80-94); Mean Platelet Vol. 11.4 fl (6.2-12.0); Monocyte# 0.46 X10^3/uL; Monocyte% 9.6 % (0-10); NRBC Flagged by Analyzer 0 % (0-5); Neutrophil # 2.97 X10^3/uL (2.7-7.7); Neutrophil % 62.3 % (47-70); POSITIVE COUNT YES; Platelet Count 88 K/mm3 (150-450); RBC Distribution Width CV 14.3 % (11.6-14.6); Red Blood Count 3.05 M/mm3 (4.6-6.2); White Blood Count 4.8 K/mm3 (4.4-11.0)
[2023-06-27 13:42] LABS: Differential Indicated SCAN CRITERIA MET
[2023-06-27 13:50] LABS: Red Blood Cells-Urine 0 SEEN /hpf (0-5); White Blood Cells 0 SEEN /hpf (0-5)
[2023-06-27 13:51] LABS: Color, Urine Yellow (Yellow); Glucose, Dipstick 1000 mg/dl (Normal); Ketone-Dipstick Negative (Negative); Leukocyte Esterase-Dipstick Negative /ul (Negative); Nitrite-Dipstick Negative (Negative); Occult Blood-Urine Negative /ul (Negative); Protein-Dipstick 30 mg/dl (Negative); Specific Gravity, Urine 1.015 (1.002-1.030); Urine Bilirubin Dipstick Negative (Negative); Urine Clarity Clear (Clear); Urine Urobilinogen Normal (Normal)
[2023-06-27 13:58] LABS: ALB/GLOB Ratio 0.8 RATIO (0.9-2.4); AST(SGOT) 23 U/L (15-37); Alanine Aminotransfer ALT/SGPT 37 U/L (16-61); Alkaline Phosphatase 73 U/L (45-117); Anion Gap 5 (5-15); BUN 64 mg/dL (7-18); BUN/Creat Ratio 26.3 RATIO (10-20); Calcium,Total 9.2 mg/dL (8.5-10.1); Chloride 107 mmol/L (98-107); Creatinine, Serum 2.43 mg/dL (0.70-1.30); EST Glomerular Filtration Rate 27 mL/min (>60); Est Glom Filt Rate - Afr Amer 33 mL/min (>60); Globulin 3.7 g/dL (2.2-4.2); Glucose 257 mg/dL (74-106); Protein, Total 6.7 g/dL (6.4-8.2); Sodium Level 142 mmol/L (136-145); Troponin-I HS 31 pg/mL (3.0-78.0)
[2023-06-27 14:00] LABS: Squamous Epithelial Cells - UA 0-5 SEEN /hpf (0-5)
[2023-06-27 14:01] LABS: Bacteria 0 SEEN /hpf (None Seen); Mucous, Urine RARE /hpf (<or=2+)
[2023-06-27 14:21] LABS: Platelet Estimate SLT DEC (ADEQ)
== END 2023-06-27 18:30 | disposition home or self-care (01) ==
PROVIDERS: Emergency Provider Emergency Medicine; PCP Family Medicine; Visit Provider Emergency Medicine
DX: R53.1 Weakness (principal); I50.30 Unspecified diastolic (congestive) heart failure; I11.0 Hypertensive heart disease with heart failure; J44.9 Chronic obstructive pulmonary disease, unspecified; E11.9 Type 2 diabetes mellitus without complications; N28.9 Disorder of kidney and ureter, unspecified; Z87.891 Personal history of nicotine dependence; R55 Syncope and collapse; Z99.81 Dependence on supplemental oxygen; I25.10 Atherosclerotic heart disease of native coronary artery without angina pectoris; E78.00 Pure hypercholesterolemia, unspecified; I25.2 Old myocardial infarction; Z86.73 Personal history of transient ischemic attack (TIA), and cerebral infarction without residual deficits; Z79.899 Other long term (current) drug therapy; E03.9 Hypothyroidism, unspecified; Z79.84 Long term (current) use of oral hypoglycemic drugs
CPT/HCPCS: 71045; 80053; 81001; 84484; 85025; 93005; 96360; 99284; J7040

== ENCOUNTER → 2023-11-07 | Outpatient (CLI) | payer MEDICARE, SELFPAY ==
[2023-11-07 18:11] LABS: Absolute Neutrophil Count 4.8 X10^3/uL (2.0-7.7); Basophil# 0.03 X10^3/uL; Basophil% 0.4 % (0-1); Eosinophil# 0.32 X10^3/uL; Eosinophils% 4.6 % (0-5); Hematocrit 27.3 % (40-54); Hemoglobin 8.5 g/dL (13.0-16.5); Lymphocyte % 18.7 % (19-41); Mean Corp Hgb Conc 31.1 g/dL (32-36); Mean Corpuscular Hgb 29.3 pg (27.0-32.0); Mean Corpuscular Volume 94.1 fL (80-94); Mean Platelet Vol. 11.5 fl (6.2-12.0); Monocyte% 7.2 % (0-10); NRBC Flagged by Analyzer 0 % (0-5); Neutrophil # 4.77 X10^3/uL (2.7-7.7); Neutrophil % 68.5 % (47-70); Platelet Count 116 K/mm3 (150-450); RBC Distribution Width SD 44.3 fl (35.1-43.9)
[2023-11-07 18:43] LABS: ALB/GLOB Ratio 0.9 RATIO (0.9-2.4); AST(SGOT) 15 U/L (15-37); Alanine Aminotransfer ALT/SGPT 10 U/L (16-61); Albumin, Serum 3.1 g/dL (3.2-5.0); Alkaline Phosphatase 70 U/L (45-117); Anion Gap 8 (5-15); BUN 59 mg/dL (7-18); BUN/Creat Ratio 29.8 RATIO (10-20); Calcium,Total 8.5 mg/dL (8.5-10.1); Chloride 110 mmol/L (98-107); Cholesterol 151 mg/dL (200); Creatinine, Serum 1.98 mg/dL (0.70-1.30); EST Glomerular Filtration Rate 34 mL/min (>60); Est Glom Filt Rate - Afr Amer 42 mL/min (>60); Globulin 3.6 g/dL (2.2-4.2); Glucose 133 mg/dL (74-106); High Density Lipoprotein 36 mg/dL; Potassium 4.5 mmol/L (3.5-5.1); Protein, Total 6.7 g/dL (6.4-8.2); Sodium Level 145 mmol/L (136-145); Triglycerides 127 mg/dL; Very Low Density Lipoprotein 25 mg/dL (5-40)
== END | disposition home or self-care (01) ==
LOC: MFPLAB 15:33
PROVIDERS: PCP Family Medicine; Visit Provider Family Medicine
DX: Z00.00 Encounter for general adult medical examination without abnormal findings (principal); E11.9 Type 2 diabetes mellitus without complications; D69.6 Thrombocytopenia, unspecified
CPT/HCPCS: 36415; 80053; 80061; 83036; 85025

== ENCOUNTER 2023-11-14 22:19 | Inpatient (IN) | payer MEDICARE, SELFPAY ==
[2023-11-14 22:20] VITALS: BP 157/57; PULSE 96; RESP 28; TEMP 36.6; O2SAT 95
[2023-11-14 22:24] VITALS: O2SAT 97
--- NOTE | 2023-11-14 22:51 | EKG12_ITS ---
Test Reason : SOB Blood Pressure : / mmHG Vent. Rate : 086 BPM Atrial Rate : 086 BPM P-R Int : 220 ms QRS Dur : 086 ms QT Int : 360 ms P-R-T Axes : 033 -10 042 degrees QTc Int : 430 ms Sinus rhythm with 1st degree A-V block Minimal voltage criteria for LVH, may be normal variant ( R in aVL ) Borderline ECG When compared with ECG of 27-JUN-2023 13:09, No significant change was found Confirmed by JOSHUA CARRILLO, JACOB ([id number]), department editor ZACKARY MARTINEZ ([id number]) on 11/15/2023 1:55:19 PM Referred By: HANANE Confirmed By:JACOB LEWIS MD
--- NOTE | 2023-11-14 22:52 | EDS_ITS ---
HPI History of Present Illness Chief Complaint: Shortness of Breath Narrative Narrative: 83-year-old male past medical history of COPD, wears 3 L of oxygen at home at all times, lives by himself presents via EMS tonight because of 2 weeks of increasing shortness of breath. He thinks it is related to the fact that he called for refill of his glimepiride, and they sent him a new medication that had the letters GBL on it and the #2. This was different from his previous prescription. Hence, he stopped taking it about 2 weeks ago. This evening, he began having increasing shortness of breath that was worse. He denies any recent steroid use, but told his primary care provider that he did not want to be on that anymore. He quit smoking in 2010. He presents mainly because of the shortness of breath and elevated blood sugars. He states that since he stopped taking the medication his blood sugar shot up to 186. He denies any increased leg swelling. No chest pain, no fevers or chills, no cough. [facility] Medical History Loss of hearing No natural teeth Wears glasses Poor historian Thyroid disease Low iron High cholesterol Syncope History of GI bleed Shortness of breath on exertion History of echocardiogram Cardiology follow-up encounter Symptomatic anemia Diabetes Kidney disease Former smoker On home oxygen therapy TIA (transient ischemic attack) Myocardial infarct Hypertension Diastolic CHF Acute and chronic respiratory failure with hypoxia History of CAD (coronary artery disease) Nonrheumatic aortic (valve) stenosis Mild left ventricular hypertrophy History of left heart catheterization (LHC) (~03/15/22) Atherosclerotic heart disease of [place] coronary artery without angina pectoris Aortic valve stenosis, acquired CAD (coronary artery disease) COPD (chronic obstructive pulmonary disease) Polyarthralgia Diabetes mellitus, type 2 Former tobacco use Obesity Hypothyroidism HLD (hyperlipidemia) HTN (hypertension) Chronic respiratory failure with hypoxia Home Medications ?Medication ?Instructions ?Recorded ?Last Taken ?Type atorvastatin 80 mg tablet 80 mg PO DAILY CHOLESTEROL 05/02/21 02/14/23 History cholecalciferol (vitamin D3) 25 25 mcg PO DAILY vitamin 05/02/21 02/15/23 History mcg (1,000 unit) capsule ipratropium 0.5 mg-albuterol 3 mg 3 ml inhalation 4X/DAY PRN sob 05/02/21 02/15/23 History (2.5 mg base)/3 mL nebulization soln liothyronine 25 mcg tablet 25 mcg PO DAILY THYROID 05/02/21 02/15/23 History omega-3 fatty acids-vitamin E 2 cap PO BID SUPPLEMENT 05/02/21 02/15/23 History 1,000 mg capsule tiotropium bromide 18 mcg capsule 18 mcg inhalation DAILY SOB 05/02/21 02/15/23 History with inhalation device (Spiriva with HandiHaler) vitamins A,C,F-yeyg-ghjtoa 4,296 1 cap PO BID vitamin 12/13/21 02/15/23 History mcg-226 mg-90 mg capsule (PreserVision AREDS) glimepiride 2 mg tablet 2 mg PO DAILY DM #3 tabs 03/09/23 02/15/23 Rx sucralfate 1 gram tablet (Carafate) 1 g PO BID 30 days #60 tabs 03/23/23 Unknown Rx empagliflozin 10 mg tablet 10 mg PO DAILY 30 days #30 tabs 04/26/23 Unknown Rx (Jardiance) lisinopril 10 mg tablet 10 mg PO DAILY 06/27/23 Unknown History metoprolol succinate 25 mg 25 mg PO DAILY 06/27/23 Unknown History tablet,extended release 24 hr pantoprazole 40 mg tablet,delayed 40 mg PO DAILY 06/27/23 Unknown History release (Protonix) sucralfate 1 gram tablet 1 g PO BID 06/27/23 Unknown History torsemide 10 mg tablet 10 mg PO DAILY 06/27/23 Unknown History vitamins A,C,Z-muci-eofumh 4,296 1 cap PO BID 06/27/23 Unknown History mcg-226 mg-90 mg capsule (PreserVision AREDS) ferrous sulfate 325 mg (65 mg 325 mg PO BID 11/14/23 Unknown History iron) tablet (FeroSul) Allergy/AdvReac Type Severity Reaction Status Date / Time aliskiren (From [place]) Allergy Intermediate Other Verified 11/14/23 22:26 valsartan (From [place]) Allergy Intermediate Other Verified 11/14/23 22:26 codeine AdvReac Upset Verified 11/14/23 22:26 Stomach Family History Mother CVA (cerebral vascular accident) Heart disease Myocardial infarction Hx of CABG Hypertension Father CVA (cerebral vascular accident) Heart disease Surgical History S/P cataract extraction Social History household members: none housing: house Smoking Status: Former smoker how long ago did patient quit smoking: Quit 2011, prior 1 ppd since teen. alcohol intake: former year quit: 2010 substance use type: does not use ROS ROS ED ROS Narrative Constitutional: No fever, no chills. HEENT: No sore throat. No neck pain. No loss of vision. No rhinorrhea. Cardiovascular: No chest pain. No palpitations. No pedal edema. Respiratory: No cough, positive shortness of breath. Abdominal: No abdominal pain. No nausea. No vomiting. Genitourinary: No dysuria. No hematuria. Musculoskeletal: No myalgias. No arthralgias. Neurologic: No headaches. No dizziness. No lightheadedness. Skin: No rash. No change in color. Psychiatric: No depression. No anxiety. EXAM Physical Exam Narrative Exam Narrative: Afebrile. Vital signs noted. HEENT: Normocephalic. Atraumatic. PERRL, EOMI. Neck soft and supple. No point tenderness or step off. Cardiovascular: Regular rate and rhythm. No murmurs, rubs, or gallops appreciated. Respiratory: Mild tachypnea. Decreased breath sounds bilateral bases left greater than right. Occasional expiratory wheeze. Gastrointestinal: Abdomen soft, nontender, with normoactive bowel sounds. No rebound or guarding. Neurological: Awake. Alert. Nonfocal, nonlateralizing. Skin: No rash. Normal color. No pallor. Musculoskeletal: Bilateral +1 symmetric pedal edema. Full range of motion extremities. Const Vital Signs: 11/14/23 22:20 11/14/23 22:24 11/14/23 22:50 Temperature 97.8 F Temperature Source Temporal Pulse Rate 96 Respiratory Rate 28 H Respiratory Effort Short of Breath Short of Breath Respiratory Depth Shallow Shallow Respiratory Pattern Tachypnea Tachypnea Blood Pressure 157/57 H Blood Pressure Mean 90 Pulse Ox 95 Oxygen Delivery Method Nasal Cannula Nasal Cannula Nasal Cannula Oxygen Flow Rate (L/min) 3 2 3 11/14/23 22:50 11/14/23 22:51 11/14/23 23:01 Temperature Temperature Source Pulse Rate 87 Respiratory Rate 18 Respiratory Effort Short of Breath Respiratory Depth Respiratory Pattern Tachypnea Blood Pressure Blood Pressure Mean Pulse Ox Oxygen Delivery Method Room Air Oxygen Flow Rate (L/min) 11/14/23 23:19 11/14/23 23:40 11/14/23 23:46 Temperature Temperature Source Pulse Rate 94 94 Respiratory Rate 24 H 29 H Respiratory Effort Short of Breath Respiratory Depth Respiratory Pattern Tachypnea Blood Pressure 105/84 H 128/75 H Blood Pressure Mean 91 92 Pulse Ox 99 100 Oxygen Delivery Method Nasal Cannula Nasal Cannula Oxygen Flow Rate (L/min) 3 3 11/15/23 00:00 Temperature 98 F Temperature Source Pulse Rate 97 Respiratory Rate 32 H Respiratory Effort Respiratory Depth Respiratory Pattern Blood Pressure 136/117 H Blood Pressure Mean 123 Pulse Ox 98 Oxygen Delivery Method Oxygen Flow Rate (L/min) MDM MDM MDM Narrative Medical decision making narrative: I reviewed his prior records. He does have history of elevated BNP, and NSTEMI. Differential diagnosis includes pneumonia versus COPD exacerbation versus CHF exacerbation versus a combination of both. Additionally, with him not taking his diabetic medication, he may have hyperglycemia but I doubt diabetic ketoacidosis based on his history and physical. Comprehensive workup was pursued. EKG was obtained and interpreted by myself independently as normal sinus rhythm with first-degree AV block at [address] changes. No STEMI. I reviewed his laboratory work and he has normal white count of 5.7, hemoglobin stable at 8.2, hematocrit 26.7, platelet count low at 115, but this is chronic for him. He states he needed transfusion of platelets in the past. Review of his electrolyte panel shows chloride slightly elevated at 112, BUN of 58 and creatinine 2.41 but he has history of chronic kidney disease. Glucose is 87 and he has a normal anion gap of 5. AST is low at 9. High-sensitivity troponin is elevated at 123. I do feel that this may be more ischemic demand from his difficulty breathing and in combination with his chronic kidney disease. It has been elevated in the 300s in the past but is also been lower and normal. BNP is 362 which is higher than it has been in the past. He takes torsemide but he will be given a dose of Lasix as interpretation of his chest x-ray in 1 view interpreted by myself does show bilateral pleural effusions with atelectasis versus infiltrate left greater than right. I reviewed the radiology report which confirms my independent interpretation. Upon repeat examination, he still is mildly tachypneic. Given his elevated troponin and elevated BNP, I did review his chart and he has not had an echocardiogram since February of last year when his ejection fraction was 65%. I will refrain from aspirin given his prior history of gastrointestinal bleeding. I discussed patient with Dr. Tracy Angel for admission to the PCU. Patient is in stable condition. History & Record Review Discussion w/independent historian: Patient Additional record(s) reviewed:: Prior ED visit and Prior labs Lab Data Attestation: I reviewed the patient's lab results. Labs: Laboratory Results - last 24 hr 11/14/23 22:29 WBC 5.7 RBC 2.79 L Hgb 8.2 L Hct 26.7 L MCV 95.7 H MCH 29.4 MCHC 30.7 L RDW Std Deviation 48.0 H RDW Coeff of John 14.0 Plt Count 115 L MPV 10.9 Immature Gran % (Auto) 0.300 Neut % (Auto) 64.6 Lymph % (Auto) 20.7 [place] % (Auto) 9.2 Eos % (Auto) 4.5 Baso % (Auto) 0.7 Absolute Neuts (auto) 3.7 Absolute Lymphs (auto) 1.19 Nucleated RBC % 0 Sodium 145 Potassium 4.8 Chloride 112 H Carbon Dioxide 28.0 Anion Gap 5 BUN 58 H Creatinine 2.41 H Est GFR (MDRD) Af Amer 33 L Est GFR (MDRD) Non-Af 27 L BUN/Creatinine Ratio 24.1 H Glucose 87 Calcium 9.0 Total Bilirubin 0.60 AST 9 L ALT 17 Alkaline Phosphatase 80 Troponin I High Sens 123 H* B-Natriuretic Peptide 362.0 H Total Protein 6.7 Albumin 3.1 L Globulin 3.6 Albumin/Globulin Ratio 0.9 Radiography Diagnostic Testing: Clinical Impression(s) from Imaging Studies Chest X-Ray 11/14/23 22:52 IMPRESSION: Pulmonary density of the lower lung hollis consistent with atelectasis or infiltrate with small effusions. Electronically Signed: Jayden Coy MD at 23:10 EDT , Management Discussion w/another healthcare provider: Hospitalist (Dr. Angel) Discharge Plan Triage Chief Complaint: Shortness of Breath ED Provider: Dalton Forrest Dx/Rx/DC Orders Clinical Impression: Elevated troponin, Bilateral pleural effusion, Acute dyspnea, COPD (chronic obs tructive pulmonary disease) Prescriptions: No Action atorvastatin 80 mg tablet 80 mg PO DAILY ipratropium-albuterol 0.5 mg-3 mg(2.5 mg base)/3 mL solution for nebulization 3 ml inhalation 4X/DAY PRN (Reason: sob) Patient Comments: inhale contents of 1 vial ( 3 milliliters ) in nebulizer by mouth... (REFER TO PRESCRIPTION NOTES). liothyronine 25 mcg tablet 25 mcg PO DAILY Patient Comments: TAKE 1 TABLET BY MOUTH ONCE DAILY FOR 90 DAYS tiotropium bromide [Spiriva with HandiHaler] 18 mcg capsule, w/inhalation device 18 mcg INHALATION DAILY Patient Comments: INHALE THE CONTENTS OF 1 CAPSULE TWICE EACH TIME VIA HANDIHALER ONCE DAILY cholecalciferol (vitamin D3) 25 mcg (1,000 unit) Capsule 25 mcg PO DAILY omega-3 fatty acids-vitamin E 1,000 mg Capsule 2 cap PO BID PreserVision AREDS [id number] Capsule 1 cap PO BID Jardiance 10 mg Tablet 10 mg PO DAILY 30 Days Qty: 30 0RF glimepiride 2 mg tablet 2 mg PO DAILY Qty: 3 0RF Patient Comments: take 1 tablet by mouth once daily WITH FIRST MEAL OF THE DAY Rx Instructions: Hold if glucose less than 130 mg/dl torsemide 10 mg tablet 10 mg PO DAILY PreserVision AREDS 4,296 mcg-226 mg-90 mg capsule 1 cap PO BID lisinopril 10 mg tablet 10 mg PO DAILY sucralfate 1 gram tablet 1 g PO BID pantoprazole [Protonix] 40 mg tablet,delayed release (DR/EC) 40 mg PO DAILY metoprolol succinate 25 mg tablet extended release 24 hr 25 mg PO DAILY ferrous sulfate [FeroSul] 325 mg (65 mg iron) tablet 325 mg PO BID sucralfate [Carafate] 1 gram tablet 1 g PO BID 30 Days Qty: 60 2RF Rx Instructions: Start BID administration after TID administration for 30 days has been completed. Primary Care Provider: Emeka Hernandez Referrals: Emeka Hernadnez MD [Primary Care Provider] - Print Language: Micronesian
--- NOTE | 2023-11-14 22:52 | RAD_ITS ---
STUDY: X-RAY CHEST REASON FOR EXAM: Male, 83 years old. Shortness of breath TECHNIQUE: Single AP portable view of the chest. COMPARISON: 06/27/2023. FINDINGS: Normal lung volumes. Pulmonary density of the lower lung holl[place] consistent with atelectasis or infiltrate with small effusions. Findings are worse on the left. Normal size heart. Normal mediastinum and purnima. Normal visualized pulmonary arteries. Normal visualized aortic arch and descending thoracic aorta. There are diffuse degenerative changes of the visualized thoracic spine. Normal visualized ribs, clavicles, and shoulders. There is no demonstrated abnormality of the visualized soft tissue structures of the upper abdomen. RAD/Chest 1 View (Portable) IMPRESSION: Pulmonary density of the lower lung hollis consistent with atelectasis or infiltrate with small effusions. Electronically Signed: Jayden Coy MD at 23:10 EDT ,
[2023-11-14 22:59] LABS: Absolute Lymphocyte Count 1.19 X10^3/uL (0.83-4.51); Absolute Neutrophil Count 3.7 X10^3/uL (2.0-7.7); Basophil# 0.04 X10^3/uL; Basophil% 0.7 % (0-1); Eosinophil# 0.26 X10^3/uL; Eosinophils% 4.5 % (0-5); Hematocrit 26.7 % (40-54); Hemoglobin 8.2 g/dL (13.0-16.5); Lymphocyte # 1.19 X10^3/ul (0.83-4.51); Lymphocyte % 20.7 % (19-41); Mean Corp Hgb Conc 30.7 g/dL (32-36); Mean Corpuscular Hgb 29.4 pg (27.0-32.0); Mean Corpuscular Volume 95.7 fL (80-94); Mean Platelet Vol. 10.9 fl (6.2-12.0); Monocyte# 0.53 X10^3/uL; Monocyte% 9.2 % (0-10); NRBC Flagged by Analyzer 0 % (0-5); Neutrophil % 64.6 % (47-70); Platelet Count 115 K/mm3 (150-450); Red Blood Count 2.79 M/mm3 (4.6-6.2); White Blood Count 5.7 K/mm3 (4.4-11.0)
[2023-11-14 23:01] VITALS: PULSE 87; RESP 18
[2023-11-14] MEDS: Ipratropium/Albuterol Sulfate 3 ML AMPUL.NEB INHALATION (23:01)
[2023-11-14 23:19] VITALS: BP 105/84; PULSE 94; RESP 24; O2SAT 99
[2023-11-14 23:20] LABS: ALB/GLOB Ratio 0.9 RATIO (0.9-2.4); AST(SGOT) 9 U/L (15-37); Alanine Aminotransfer ALT/SGPT 17 U/L (16-61); Albumin, Serum 3.1 g/dL (3.2-5.0); Alkaline Phosphatase 80 U/L (45-117); Anion Gap 5 (5-15); BUN 58 mg/dL (7-18); BUN/Creat Ratio 24.1 RATIO (10-20); Chloride 112 mmol/L (98-107); Creatinine, Serum 2.41 mg/dL (0.70-1.30); EST Glomerular Filtration Rate 27 mL/min (>60); Est Glom Filt Rate - Afr Amer 33 mL/min (>60); Globulin 3.6 g/dL (2.2-4.2); Glucose 87 mg/dL (74-106); Potassium 4.8 mmol/L (3.5-5.1); Protein, Total 6.7 g/dL (6.4-8.2); Sodium Level 145 mmol/L (136-145); Troponin-I HS 123 pg/mL (3.0-78.0)
[2023-11-14 23:40] VITALS: BP 128/75; PULSE 94; RESP 29; O2SAT 100
[2023-11-14] MEDS: Furosemide 40 MG/4 ML Vial IV (23:41)
--- NOTE | 2023-11-14 23:56 | HP.PCM.HOS_ITS ---
HPI - General General Date of Admission: 11/14/23 Date of Service: 11/14/23 Chief Complaint: Dyspnea. HPI Narrative The patient is an 83 y/o M w/ PMHx: Chronic anemia/Fe deficiency anemia, HTN, HLD, Hypothyroidism, GERD, Hx GI bleed, HFpEF, Former tobacco use, Hx TIA, COPD with Chronic Hypoxic Respiratory Failure (3L NC), Nonobstructive CAD, Valvular Heart Disease, Diabetes mellitus type II, Carotid disease, CKD stage IV per GFR trending who presents to the [facility] ED on 11/14/23 with history of 2 weeks of progressively worsening dyspnea, fatigue with more severe increased dyspnea on evening on day of presentation in addition to elevated blood sugars also reporting that he recently discontinued some of his medications but exactly which medications is unclear but potentially related with his diabetes with no recent lower extremity swelling, chest pain, recent cough, fever or chills noted. Workup in the ED included T97.8, heart rate 96, BP 157/57, respiratory rate 28, 95% on 3 L nasal cannula with most recent repeat vital signs heart rate 94, BP 120/75, respiratory rate 29, 100% on 3 L nasal cannula, CBC with WBC 5.7, hemoglobin 8.2, MCV 95.7, platelet 115 without marked shift, CMP with chloride 112, BUN/creatinine 58/2.41, GFR 27, BNP 362, troponin 123, chest x-ray with pulmonary density left lower lung field consistent with atelectasis or infiltrate with small effusions, EKG with sinus rhythm with first-degree AV block with no acute evidence of ischemia. In the ED patient ministered DuoNeb therapy and Lasix 40 mg IV x 1. PFSH Medical History Loss of hearing No natural teeth Wears glasses Poor historian Thyroid disease Low iron High cholesterol Syncope History of GI bleed Shortness of breath on exertion History of echocardiogram Cardiology follow-up encounter Symptomatic anemia Diabetes Kidney disease Former smoker On home oxygen therapy TIA (transient ischemic attack) Myocardial infarct Hypertension Diastolic CHF Acute and chronic respiratory failure with hypoxia History of CAD (coronary artery disease) Nonrheumatic aortic (valve) stenosis Mild left ventricular hypertrophy History of left heart catheterization (LHC) (~03/15/22) Atherosclerotic heart disease of [place] coronary artery without angina pectoris Aortic valve stenosis, acquired CAD (coronary artery disease) COPD (chronic obstructive pulmonary disease) Polyarthralgia Diabetes mellitus, type 2 Former tobacco use Obesity Hypothyroidism HLD (hyperlipidemia) HTN (hypertension) Chronic respiratory failure with hypoxia Home Medications ?Medication ?Instructions ?Recorded ?Last Taken ?Type atorvastatin 80 mg tablet 80 mg PO DAILY CHOLESTEROL 05/02/21 02/14/23 History cholecalciferol (vitamin D3) 25 25 mcg PO DAILY vitamin 05/02/21 02/15/23 History mcg (1,000 unit) capsule ipratropium 0.5 mg-albuterol 3 mg 3 ml inhalation 4X/DAY PRN sob 05/02/21 02/15/23 History (2.5 mg base)/3 mL nebulization soln liothyronine 25 mcg tablet 25 mcg PO DAILY THYROID 05/02/21 02/15/23 History omega-3 fatty acids-vitamin E 2 cap PO BID SUPPLEMENT 05/02/21 02/15/23 History 1,000 mg capsule tiotropium bromide 18 mcg capsule 18 mcg inhalation DAILY SOB 05/02/21 02/15/23 History with inhalation device (Spiriva with HandiHaler) vitamins A,C,P-frac-xhheut 4,296 1 cap PO BID vitamin 12/13/21 02/15/23 History mcg-226 mg-90 mg capsule (PreserVision AREDS) glimepiride 2 mg tablet 2 mg PO DAILY DM #3 tabs 03/09/23 02/15/23 Rx sucralfate 1 gram tablet (Carafate) 1 g PO BID 30 days #60 tabs 03/23/23 Unknown Rx empagliflozin 10 mg tablet 10 mg PO DAILY 30 days #30 tabs 04/26/23 Unknown Rx (Jardiance) lisinopril 10 mg tablet 10 mg PO DAILY 06/27/23 Unknown History metoprolol succinate 25 mg 25 mg PO DAILY 06/27/23 Unknown History tablet,extended release 24 hr pantoprazole 40 mg tablet,delayed 40 mg PO DAILY 06/27/23 Unknown History release (Protonix) sucralfate 1 gram tablet 1 g PO BID 06/27/23 Unknown History torsemide 10 mg tablet 10 mg PO DAILY 06/27/23 Unknown History vitamins A,C,F-ndgh-qnzond 4,296 1 cap PO BID 06/27/23 Unknown History mcg-226 mg-90 mg capsule (PreserVision AREDS) ferrous sulfate 325 mg (65 mg 325 mg PO BID 11/14/23 Unknown History iron) tablet (FeroSul) Allergy/AdvReac Type Severity Reaction Status Date / Time aliskiren (From Valturna) Allergy Intermediate Other Verified 11/14/23 22:26 valsartan (From Valturna) Allergy Intermediate Other Verified 11/14/23 22:26 codeine AdvReac Upset Verified 11/14/23 22:26 Stomach Family History Mother CVA (cerebral vascular accident) Heart disease Myocardial infarction Hx of CABG Hypertension Father CVA (cerebral vascular accident) Heart disease Surgical History S/P cataract extraction Social History household members: none housing: house Smoking Status: Former smoker how long ago did patient quit smoking: Quit 2010, prior 1 ppd since teen. alcohol intake: former year quit: 2010 substance use type: does not use ROS ROS Narrative Admission Review of Systems: CONSTITUTIONAL: No weight loss, fever, chills, weight gain, + weakness or fatigue. HEENT: Eyes: No visual loss, blurred vision, double vision or yellow sclerae. Ears, Nose, Throat: No hearing loss, sneezing, congestion, runny nose or sore throat. SKIN: + Chronic bilateral lower extremity venous stasis skin changes, occasional abrasion, occasional stage ecchymoses. CARDIOVASCULAR: + Chronic BL LE edema, not markedly pitting, orthopnea. No chest pain/pressure/tightness, palpitations, syncopal events. RESPIRATORY: + Acute on chronic shortness of breath, occasional nonproductive cough, occasional wheezing. No marked sputum, no hemoptysis. GASTROINTESTINAL: No anorexia, nausea, vomiting or diarrhea, abdominal pain, melena, BRBPR. GENITOURINARY: No dysuria, frequency, urgency or retention. NEUROLOGICAL: No headache, dizziness, syncope, paralysis, ataxia, numbness or tingling in the extremities, focal weakness, change in bowel or bladder control, seizure. MUSCULOSKELETAL: + muscle, back pain, joint pain or stiffness. HEMATOLOGIC: + anemia, easy bleeding/bruising. LYMPHATICS: No enlarged nodes. No history of splenectomy. PSYCHIATRIC: No history of depression or anxiety. ENDOCRINOLOGIC: No reports of sweating, cold or heat intolerance. No polyuria or polydipsia. ALLERGIES: No history of asthma, hives, eczema or rhinitis. Vital Signs Vital Signs Vital Signs: 11/14/23 22:20 11/14/23 22:24 11/14/23 22:50 Temperature 97.8 F Temperature Source Temporal Pulse Rate 96 Respiratory Rate 28 H Respiratory Effort Short of Breath Short of Breath Respiratory Depth Shallow Shallow Respiratory Pattern Tachypnea Tachypnea Blood Pressure 157/57 H Blood Pressure Mean 90 Pulse Ox 95 Oxygen Delivery Method Nasal Cannula Nasal Cannula Nasal Cannula Oxygen Flow Rate (L/min) 3 2 3 11/14/23 22:50 11/14/23 22:51 11/14/23 23:01 Temperature Temperature Source Pulse Rate 87 Respiratory Rate 18 Respiratory Effort Short of Breath Respiratory Depth Respiratory Pattern Tachypnea Blood Pressure Blood Pressure Mean Pulse Ox Oxygen Delivery Method Room Air Oxygen Flow Rate (L/min) 11/14/23 23:19 11/14/23 23:40 11/14/23 23:46 Temperature Temperature Source Pulse Rate 94 94 Respiratory Rate 24 H 29 H Respiratory Effort Short of Breath Respiratory Depth Respiratory Pattern Tachypnea Blood Pressure 105/84 H 128/75 H Blood Pressure Mean 91 92 Pulse Ox 99 100 Oxygen Delivery Method Nasal Cannula Nasal Cannula Oxygen Flow Rate (L/min) 3 3 Physical Exam Narrative Physical Examination: General: Awake, alert, oriented x 3 and cooperative, seated upright in the ED bed, fatigued, mild tachypnea, notes feeling improved since initial ED arrival. Skin: Normal color, normal turgor, no icterus, no cyanosis, chronic bilateral lower extremity venous stasis skin changes, occasional staged ecchymoses, abrasion HEENT: AT/NC, EOMI, PERRLA, MMM, no carotid bruits, + JVD noted, although difficult exam given thickened neck. Lungs: Diffusely diminished,> bases, moderate effort, mild tachypnea evident, maintained on chronic 3L NC, bilateral rales at the bases, no current wheezing or rhonchi. Heart: Currently regular rate with regular rhythm; no gallop, rub audible. Abdomen: Soft, obese, NTTP, ND but difficult given habitus, distant normal BS, no obvious evidence of HSM but habitus makes evaluation difficult. Extremities: No cyanosis, no clubbing, see skin. Neurological: Patient awake, alert, oriented as noted, cognitive function intact; pupils equally reactive to light and accommodation, cranial nerves II- XII grossly normal, moving all 4 extremities, no focal deficits, strength moderately to severely decreased secondary to acute presentation. Psychiatric: Affect appears fatigued, no acute evidence of depressive or anxiety feelings. Results Lab / Micro Data 11/14/23 22:29 11/14/23 22:29 Labs: Laboratory Results - last 24 hr 11/14/23 22:29: WBC 5.7, RBC 2.79 L, Hgb 8.2 L, Hct 26.7 L, MCV 95.7 H, MCH 29.4, MCHC 30.7 L, RDW Std Deviation 48.0 H, RDW Coeff of John 14.0, Plt Count 115 L, MPV 10.9, Immature Gran % (Auto) 0.300, Neut % (Auto) 64.6, Lymph % (Auto) 20.7, Runnels % (Auto) 9.2, Eos % (Auto) 4.5, Baso % (Auto) 0.7, Absolute Neuts (auto) 3.7, Absolute Lymphs (auto) 1.19, Nucleated RBC % 0, Sodium 145, Potassium 4.8, Chloride 112 H, Carbon Dioxide 28.0, Anion Gap 5, BUN 58 H, C reatinine 2.41 H, Est GFR (MDRD) Af Amer 33 L, Est GFR (MDRD) Non-Af 27 L, B UN/Creatinine Ratio 24.1 H, Glucose 87, Calcium 9.0, Total Bilirubin 0.60, AST 9 L, ALT 17, Alkaline Phosphatase 80, Troponin I High Sens 123 H*, B-Natriuretic Peptide 362.0 H, Total Protein 6.7, Albumin 3.1 L, Globulin 3.6, Albumin/Globulin Ratio 0.9 Imaging Radiology Impression Chest X-Ray 11/14/23 22:52 IMPRESSION: Pulmonary density of the lower lung hollis consistent with atelectasis or infiltrate with small effusions. Electronically Signed: Jayden Coy MD at 23:10 EDT , Assessment & Plan Assessment/Plan (1) Acute exacerbation of chronic heart failure: PLAN: Plan The patient is an 83 y/o M w/ PMHx: Chronic anemia/Fe deficiency anemia, HTN, HLD, Hypothyroidism, GERD, Hx GI bleed, HFpEF, Former tobacco use, Hx TIA, COPD with Chronic Hypoxic Respiratory Failure (3L NC), Nonobstructive CAD, Valvular Heart Disease, Diabetes mellitus type II, Carotid disease, CKD stage IV per GFR trending who presents to the [facility] ED on 11/14/23 with history of 2 weeks of progressively worsening dyspnea, fatigue with more severe increased dyspnea on evening on day of presentation in addition to elevated blood sugars also reporting that he recently discontinued some of his medications but exactly which medications is unclear but potentially related with his diabetes with no recent lower extremity swelling, chest pain, recent cough, fever or chills noted. #1. Acute Dyspnea secondary to suspected Acute on Chronic Decompensated HFpEF, lower suspicion for PNA with indeterminate cardiac enzyme potentially related to demand but cannot rule out potential NSTEMI: Patient administered IV lasix in the ED, will admit to PCU, maintain on cardiac telemetry, obtain cardiac enzyme series, obtain serial EKGs, continue IV lasix diuresis, monitor I/Os, maintain on intake restriction, continue medical therapy, obtain TSH and magnesium level. Most recent ECHO noted 02/2023 thus will request repeat. Pending repeat serial cardiac enzymes and further evaluation following diuresis may need to consider cardiology involvement. Will place Carrillo wraps with lower extremity elevation. Procalcitonin pending. Repeat CXR in AM following diuresis to assess for infiltrates pending. #2. Chronic COPD with chronic hypoxic respiratory failure 3 L NC: Will maintain on home oxygen supplementation, will hold home inhalers in the interim transition to ATC DuoNeb therapy, PRN albuterol, HOB, IS parameters. #3. Chronic Kidney Disease Stage IV based on GFR trending but seems to vacillate between a GFR consistent with III/IV Admission BUN/Cr 58/2.41, GFR 27, baseline renal function appears to be 1.9-2.4 primarily, repeat BMP in AM. #4. Chronic anemia, currently appears macrocytic, previously normocytic/iron deficiency anemia: Admission hemoglobin 8.2, MCV 95.7, baseline prior hemoglobin similar, primarily 8-9, stable, continue to trend, continue iron supplementation. #5. Valvular heart disease: Most recent echocardiogram noted 02/14/2023 with mild concentric LVH, LVEF 65%, moderate diffuse AV calcification, moderate aortic stenosis, mild PATRICIO. #6. Carotid disease: Most recently noted carotid duplex 02/14/2023 with severe greater than 70% stenosis right and left extracranial internal carotid with patent and antegrade vertebrals bilaterally. Will continue aspirin, statin, hypertensive regimen as noted, diabetic regimen as noted with adjustments. #7. Nonobstructive CAD: Most recent cardiac catheterization noted 03/2022 with left main 25% stenosed, LAD with mild luminal irregularities, full diagonal 50% stenosis, lateral circumflex with mild luminal irregularities, right coronary mild luminal irregularities treated medically, continue aspirin, statin, metoprolol, lisinopril home regimen. #8. Hypertension: Continue home regimen including metoprolol, lisinopril, IV Lasix as noted, PRN hydralazine. #9. Hyperlipidemia: Continue home statin regimen. AM FLP. #10. Hypothyroidism: We will continue patient home liothyronine home regimen. #11. GERD with history of GI bleed: We will continue patient on PPI and sucralfate regimen. #12. History TIA: Will continue aspirin, statin, hypertensive regimen, diabetic regimen with adjustments as noted. #13. Diabetes mellitus type II with hyperglycemia: Hold oral home regimen, hemoglobin A1c requested, ADA diet, accu checks w/ ISS. #14. DVT prophylaxis: Heparin. #15. CODE status: Patient RUSTY is his daughter and living will is currently in place. Discussed CODE status at length including difference between FULL code, DNR-CCA and DNR-CC status. Following discussions about the differences in these status, requested Full Code status. Advanced Care Planning Face to Face Time: 16 minutes. Charges/Coding Visit Charges Inpatient E&M: 70257 Init Hosp L3 Procedures Hospitalists Procedures: 86860 Advncd Care Plan 30 Min
[2023-11-15] VITALS (15 sets, daily range): BP systolic 129–198; BP diastolic 50–117; PULSE 81–130; RESP 18–36; TEMP 36.2–37; O2SAT 92–100; BMI 32.1
[2023-11-15 00:24] LABS: Magnesium 1.8 mg/dL (1.6-2.6)
[2023-11-15 01:13] LABS: Procalcitonin 0.16 ng/mL (0.00-0.09)
--- NOTE | 2023-11-15 01:46 | EKG12_ITS ---
Test Reason : SOB/HR Blood Pressure : / mmHG Vent. Rate : 115 BPM Atrial Rate : 115 BPM P-R Int : 204 ms QRS Dur : 094 ms QT Int : 312 ms P-R-T Axes : 000 002 078 degrees QTc Int : [address] & T wave abnormality, consider lateral ischemia Abnormal ECG Confirmed by JOSHUA CARRILLO, JACOB ([id number]), restaurant expeditor ZACKARY MARTINEZ ([id number]) on 11/15/2023 1:57:02 PM Referred By: Confirmed By:JACOB LEWIS MD
[2023-11-15 02:36] LABS: Troponin-I HS 119 pg/mL (3.0-78.0)
[2023-11-15 03:39] LABS: Bedside Glucose 173 mg/dL (74-106)
[2023-11-15 04:26] LABS: Absolute Neutrophil Count 5.2 X10^3/uL (2.0-7.7); Basophil# 0.03 X10^3/uL; Basophil% 0.4 % (0-1); Eosinophil# 0.22 X10^3/uL; Eosinophils% 3.2 % (0-5); Hematocrit 27.7 % (40-54); Hemoglobin 8.8 g/dL (13.0-16.5); Lymphocyte % 13.2 % (19-41); Mean Corp Hgb Conc 31.8 g/dL (32-36); Mean Corpuscular Hgb 30.7 pg (27.0-32.0); Mean Corpuscular Volume 96.5 fL (80-94); Mean Platelet Vol. 10.3 fl (6.2-12.0); Monocyte# 0.41 X10^3/uL; NRBC Flagged by Analyzer 0 % (0-5); Neutrophil # 5.23 X10^3/uL (2.7-7.7); Neutrophil % 76.9 % (47-70); Platelet Count 106 K/mm3 (150-450); RBC Distribution Width SD 48.1 fl (35.1-43.9); Red Blood Count 2.87 M/mm3 (4.6-6.2); White Blood Count 6.8 K/mm3 (4.4-11.0)
[2023-11-15 05:10] LABS: Troponin-I HS 150 pg/mL (3.0-78.0)
[2023-11-15 05:11] LABS: ALB/GLOB Ratio 0.9 RATIO (0.9-2.4); AST(SGOT) 10 U/L (15-37); Alanine Aminotransfer ALT/SGPT 14 U/L (16-61); Albumin, Serum 3.2 g/dL (3.2-5.0); Alkaline Phosphatase 79 U/L (45-117); Anion Gap 4 (5-15); BUN 60 mg/dL (7-18); BUN/Creat Ratio 26.5 RATIO (10-20); Calcium,Total 8.9 mg/dL (8.5-10.1); Chloride 109 mmol/L (98-107); Cholesterol 170 mg/dL (200); Creatinine, Serum 2.26 mg/dL (0.70-1.30); EST Glomerular Filtration Rate 30 mL/min (>60); Est Glom Filt Rate - Afr Amer 36 mL/min (>60); Estimated Creatinine Clearance 24.77 ml/min; Globulin 3.6 g/dL (2.2-4.2); Glucose 174 mg/dL (74-106); High Density Lipoprotein 36 mg/dL; Potassium 4.6 mmol/L (3.5-5.1); Protein, Total 6.8 g/dL (6.4-8.2); Sodium Level 143 mmol/L (136-145); Triglycerides 163 mg/dL; Very Low Density Lipoprotein 33 mg/dL (5-40)
--- NOTE | 2023-11-15 05:55 | ECHOCS_ITS ---
Version 2 Reason For Study: CHF Procedure This was a 2D Doppler, Color Flow transthoracic echocardiogram. The study was technically difficult. Exam performed portable in patient room. Left Ventricle Normal LV size. Mild concentric left ventricular hypertrophy. The left ventricular ejection fraction is 55 %. Stage 1 diastolic dysfunction. No regional wall motion abnormalities noted. Right Ventricle Normal RV size. Normal systolic function. Aortic Valve Trisinus/trileaflet aortic valve. Mild focal aortic valve calcification. Peak aortic valve gradient 64 mmHg. Mean aortic valve gradient 38 mmHg. Moderate to severe aortic stenosis. Pulmonic Valve Normal pulmonic valve. Great Vessels Normal aortic root. The pulmonary artery is normal size. Normal inferior vena cava. Pericardium/Pleural No pericardial effusion. Medication Diluted definity 1ml given slow IV push to enhance endocardial definition. MMode/2D Measurements & Calculations LVIDd: 4.4 cm IVSd: 1.3 cm LVOT diam: 1.9 cm LVIDs: 3.2 cm LVPWd: 1.3 cm LVOT area: 2.8 cm2 RVDd: 3.5 cm FS: 27.6 % Ao root diam: 2.9 cm LAV(MOD-bp): 54.5 ml LVAd ap4: 35.8 cm2 LAV(MOD-bp) Indexed: 27.8 ml/m2 LVLd ap4: 8.6 cm LAV(MOD-sp2): 54.3 ml EDV(MOD-sp4): 122.0 ml LAV(MOD-sp4): 51.3 ml EDV(sp4-el): 126.8 ml LVAs ap4: 23.9 cm2 LVLs ap4: 8.0 cm ESV(MOD-sp4): 58.0 ml ESV(sp4-el): 60.9 ml EF(MOD-sp4): 52.5 % EF(sp4-el): 52.0 % SV(MOD-sp4): 64.1 ml SV(sp4-el): 65.9 ml LA A4 area: 19.3 cm2 LA dimension(2D): 3.9 cm TAPSE: 2.4 cm RA A4 area: 16.3 cm2 Time Measurements MV dec time: 0.12 sec Doppler Measurements & Calculations MV E max mando: 122.9 cm/sec Lat Peak E' Mando: 12.2 cm/sec Med Peak E' Mando: 11.9 cm/sec MV A max mando: 162.1 cm/sec E/E' lat: 10.1 E/E' med: 10.3 MV E/A: 0.76 Ao V2 max: 397.9 cm/sec LV V1 max: 133.2 cm/sec SV(LVOT): 89.6 ml Ao max P.4 mmHg LV V1 max P.1 mmHg Ao V2 mean: 292.7 cm/sec LV V1 mean P.8 mmHg Ao mean P.9 mmHg LV V1 mean: 90.1 cm/sec Ao V2 VTI: 91.5 cm LV V1 VTI: 31.5 cm AV (velocity ratio): 0.34 ALEXY(I,D): 0.98 cm2 ALEXY(V,D): 0.95 cm2 PA V2 max: 109.0 cm/sec ECHO/Echo Complete W/ Contrast Interpretation Summary Normal LV size. Mild concentric left ventricular hypertrophy. The left ventricular ejection fraction is 55 %. Stage 1 diastolic dysfunction. Mean aortic valve gradient 38 mmHg. Moderate to severe aortic stenosis. Ordering Physician: Tracy Angel Referring Physician: YURIDIA SANDOVAL Performed By: Jennifer Coleman RDCS
--- NOTE | 2023-11-15 05:55 | RAD_ITS ---
STUDY: X-RAY CHEST REASON FOR EXAM: Male, 83 years old. Dyspnea TECHNIQUE: Single AP portable view of the chest. COMPARISON: 11/14/2023. FINDINGS: Increased density in both lung bases, similar to prior study and consistent with atelectasis or infiltrate with pleural effusions. Mild cardiomegaly. No other changes or findings since yesterday. RAD/Chest 1 View (Portable) IMPRESSION: No definite change since yesterday. Electronically Signed: Jayden Coy MD at 23:55 EDT ,
[2023-11-15] MEDS: Liothyronine 5 MCG Tablet 25 MCG PO (07:00)
[2023-11-15] MEDS: Sucralfate 1 GM Tablet PO ×2 (07:00→17:02)
[2023-11-15 07:21] LABS: Bedside Glucose 113 mg/dL (74-106)
[2023-11-15] MEDS: Ipratropium/Albuterol Sulfate 3 ML AMPUL.NEB INHALATION ×4 (07:38→19:31)
--- NOTE | 2023-11-15 09:05 | PN.HOSP_ITS ---
Reason for Visit Reason for Visit: Shortness of breath Subjective Subjective Mr. West is an 83-year-old white male who presented to the emergency department at [facility] on 11/14/2023 with a chief complaint of shortness of breath that have been progressively worsening over the last 2 weeks. He also complained of concomitant fatigue. He reported that some of his medications were discontinued recently however he is unclear exactly what medications those were. He denied any worsening lower extremity swelling, chest pain, cough, fever, or chills. He sleeps in a recliner at baseline and has been doing so for 6 years. He was taking care of his up until the last year as she was in hospice. She has since . He is on chronic oxygen at 2 to 3 L and is compliant with this at baseline. Vital signs on presentation showed temperature of 97.8, heart rate 96, respiratory 28, blood pressure is 157/57 and pulse ox was 95% on 3 L nasal cannula. CBC showed chronic stable anemia with a normal white count and chronic thrombocytopenia with a normal platelet count. Chemistry panel showed worsening serum creatinine and BUN at 58 and 2.41 (baseline serum creatinine has been running between 2 and 2.2). Serum glucose was normal on presentation at 87. Troponin was 123 and have remained elevated mildly but no significant trend upwards with subsequent troponin being 119 and 150 respectively. BNP was elevated at 262. Chest x-ray showed pulmonary densities in the lower lung hollis consistent with atelectasis/effusions and upon my review seems more consistent with volume overload. He was admitted to the PCU and placed diuretics. Patient states he is much better today. His baseline. Patient feels that his exacerbation was brought on by the wrong glipizide pill being given to him. Patient states he has been watching his salt and fluid intake at home but did gain weight. He states he is up about 5 pounds in the last week. He states he does not eat out and makes his food at home and denies using any significant mental salt. We did discuss using salt substitutes as Mrs. Dooley. Objective Data Objective Data Vital Signs: Vital Signs Temp Pulse Resp BP Pulse Ox O2 Del Method O2 Flow Rate 97.5 F L 84 21 H 141/60 H 93 Nasal Cannula 2 11/15/23 06:56 11/15/23 07:30 11/15/23 07:30 11/15/23 06:56 11/15/23 08:27 11/15/23 08:27 11/15/23 08:27 Oxygen Flow Rate (L/min) 2 Oxygen Delivery Method Nasal Cannula Weight: 87.7 kg Body Mass Index (BMI) 32.1 Intake & Output: Intake and Output for Last 24 Hours 11/13/23 11/14/23 11/15/23 23:59 23:59 23:59 Intake Total 300 / 300 Output Total 1100 / 1100 Balance -800 / -800 Lab / Micro Data 11/15/23 04:17 11/15/23 04:17 Labs: Laboratory Results - last 24 hr 11/14/23 22:29: WBC 5.7, RBC 2.79 L, Hgb 8.2 L, Hct 26.7 L, MCV 95.7 H, MCH 29.4, MCHC 30.7 L, RDW Std Deviation 48.0 H, RDW Coeff of John 14.0, Plt Count 115 L, MPV 10.9, Immature Gran % (Auto) 0.300, Neut % (Auto) 64.6, Lymph % (Auto) 20.7, Sharp % (Auto) 9.2, Eos % (Auto) 4.5, Baso % (Auto) 0.7, Absolute Neuts (auto) 3.7, Absolute Lymphs (auto) 1.19, Nucleated RBC % 0, Sodium 145, Potassium 4.8, Chloride 112 H, Carbon Dioxide 28.0, Anion Gap 5, BUN 58 H, C reatinine 2.41 H, Est GFR (MDRD) Af Amer 33 L, Est GFR (MDRD) Non-Af 27 L, B UN/Creatinine Ratio 24.1 H, Glucose 87, Calcium 9.0, Magnesium 1.8, Total Bilirubin 0.60, AST 9 L, ALT 17, Alkaline Phosphatase 80, Troponin I High Sens 123 H*, B-Natriuretic Peptide 362.0 H, Total Protein 6.7, Albumin 3.1 L, Globulin 3.6, Albumin/Globulin Ratio 0.9 11/15/23 00:20: Troponin I High Sens 119 H, Procalcitonin 0.16 H 11/15/23 03:08: POC Glucose 173 H 11/15/23 04:17: WBC 6.8, RBC 2.87 L, Hgb 8.8 L, Hct 27.7 L, MCV 96.5 H, MCH 30.7, MCHC 31.8 L, RDW Std Deviation 48.1 H, RDW Coeff of John 14.0, Plt Count 106 L, MPV 10.3, Immature Gran % (Auto) 0.300, Neut % (Auto) 76.9 H, Lymph % (Auto) 13.2 L, Sharp % (Auto) 6.0, Eos % (Auto) 3.2, Baso % (Auto) 0.4, Absolute Neuts (auto) 5.2, Absolute Lymphs (auto) 0.90, Nucleated RBC % 0, Sodium 143, Potassium 4.6, Chloride 109 H, Carbon Dioxide 30.0, Anion Gap 4 L, BUN 60 H, C reatinine 2.26 H, Estim Creat Clear Calc 24.77, Est GFR (MDRD) Af Amer 36 L, Est GFR (MDRD) Non-Af 30 L, BUN/Creatinine Ratio 26.5 H, Glucose 174 H, Calcium 8.9, Total Bilirubin 0.50, AST 10 L, ALT 14 L, Alkaline Phosphatase 79, Total Protein 6.8, Albumin 3.2, Globulin 3.6, Albumin/Globulin Ratio 0.9, Triglycerides 163, Cholesterol 170, LDL Cholesterol 101, VLDL Cholesterol 33, HDL Cholesterol 36 L, TSH 2.800 11/15/23 04:19: Troponin I High Sens 150 H* 11/15/23 06:54: POC Glucose 113 H Radiography Diagnostic Testing: Radiology Impression Chest X-Ray 11/14/23 22:52 IMPRESSION: Pulmonary density of the lower lung hollis consistent with atelectasis or infiltrate with small effusions. Electronically Signed: Jayden Coy MD at 23:10 EDT , Physical Exam Const alert, oriented x3 and no apparent distress; Negative for average body habitus or healthy appearing Constitutional Narrative: Obese, elderly, white male, sitting up in a chair at the bedside, eating lunch, appears comfortable, nontoxic, no signs of respiratory distress, appears chronically ill HEENT head/scalp atraumatic and moist oral mucous membranes HEENT Narrative: Dentition is poor, Mallampati is 3, no thrush Resp normal respiratory effort, no retractions and no use of accessory muscles Resp Narrative: Few crackles at bases bilaterally left greater than right, no signs of respiratory distress at this time and oxygen has been weaned back to baseline of 2 L Auscultation: crackles; Negative for rhonchi or wheezes Cardio regular rate, regular rhythm, S1 normal heart sound, S2 normal heart sound, no murmurs, no rub, no gallops and no clicks GI normal to inspection, nondistended, normoactive bowel sounds, soft to palpation and non-tender GI Narrative: Protuberant abdomen with umbilical hernia Extremity no clubbing, cyanosis or edema Extremity Narrative: 1+ bilateral lower extremity pitting edema Neuro oriented x3, moves all extremities and no focal motor deficits Speech: speech normal Psych affect normal Psych Narrative: Pleasant, eye contact is good, patient interacts appropriately Assessment & Plan Assessment/Plan (1) Acute exacerbation of chronic heart failure: (2) Hypoxia: PLAN: Plan Acute hypoxia secondary to acute on chronic heart failure with preserved ejection fraction -Patient has been wearing 3 L nasal cannula--> verifying what his home doses and will check ambulatory pulse ox prior to discharge. 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 pylori negative -EGD and capsule endoscopy done in March 2023 that noted no esophageal abnormalities but dilation of the upper esophagus was performed due to stricture and capsule endoscopy placed with capsule endoscopy revealing no signs of bleeding -Continue home Protonix 40 mg p.o. twice daily -Continue home Carafate -Continue outpatient follow-up with Chronic thrombocytopenia -Etiology is unclear however I do suspect he may have some liver dysfunction related to MCBRIDE -Did have an abdominal ultrasound done 2021 that showed hepatomegaly and fatty infiltration -Recommend outpatient follow-up with GI Carotid artery stenosis -Last carotid duplex was in 2022 and showed severe bilateral carotid artery stenosis with patent and antegrade vertebrals bilaterally -Continue medical therapy -Recommend outpatient follow-up with vascular surgery TIA -Continue home aspirin and Plavix Hypothyroidism -Continue home liothyronine Chronic hypoxic respiratory failure secondary to COPD -Is dependent on 2 L at baseline -Continue home inhalers and as needed nebulizers -Wean oxygen as able -Ongoing outpatient follow-up with pulmonary medicine as scheduled Nonobstructive CAD/essential HTN/HPL -Patient has nonobstructive CAD and is not on any antiplatelet therapy -Recurrent bleeding has been an issue -Continue home atorvastatin -Hold home Lasix -Continue home lisinopril -Continue home metoprolol DM-2 -Hold glimepiride -SSI -Cardiac/carb controlled diet -Accu-Cheks as ordered Obesity -BMI is 32.2 -Recommend weight loss -Complicates treatment, prognosis, outcomes DVT prophylaxis -Heparin 3 times daily CODE STATUS -DNR CCA with no intubation as confirmed on admission Disposition: -Suspect possible discharge tomorrow as long as patient is weaned back to his baseline oxygen and remained stable as he is feeling much better at this time. Charges/Coding Visit Charges Inpatient E&M: 80203 Subs Hosp L2
[2023-11-15] MEDS: Aspirin E.C. 81 MG Tablet PO (09:44)
[2023-11-15] MEDS: Pantoprazole Sodium 40 MG Tablet PO (09:44)
[2023-11-15] MEDS: Furosemide 40 MG/4 ML Vial IV ×2 (09:44→17:04)
[2023-11-15] MEDS: Ferrous Sulfate 325 MG Tablet PO ×2 (09:44→17:03)
[2023-11-15] MEDS: Heparin Injection (Vial) 5,000 UNIT/ML VIAL 5000 UNIT SC ×2 (09:45→21:10)
[2023-11-15] MEDS: Lisinopril 10 MG Tablet PO (09:45)
[2023-11-15] MEDS: Metoprolol(XL)Succ 25 MG Tablet PO (09:45)
[2023-11-15] MEDS: 0.9% Saline Lock 10 ML Syringe IV (09:46)
[2023-11-15 10:12] LABS: Hemoglobin A1c 5.7 % (3.8-5.6)
[2023-11-15] MEDS: Insulin Lispro 100 UNIT/ML INSULN.PEN SC ×3 (11:59→21:11)
[2023-11-15 13:03] LABS: Bedside Glucose 164 mg/dL (74-106)
--- NOTE | 2023-11-15 15:59 | CASEMGMT ---
ALMA RINALDI Assessment Face to Face with patient for initial transition planning/care coordination assessment. ALMA RINALDI introduced self and role at [facility], pt voices understanding. Pt is A&Ox4 and is resting comfortably in the chair and is calm. Care providers, pharmacy, and demographics verified. Admitting dx: HF Exacerbation LACE Strata: 3 PCP: Emeka Hernandez Specialists: IRIS Preferred Pharmacy: [facility] Insurance: [employer] [facility] Prescription Benefit: Yes LNOK: Katie Singletary (Tyler) Living Arrangements: Pt lives alone in a mobile home with 8 steps to enter ADLs/IADLs: States ind Transportation: Pt drives short distances. Pt daughter drives the pt. DME: Working [employer] and supplies. Shower chair. BP Cuff. Nebulizer. Cane. FWW. W/C. Home oxygen through [employer]. TC to [facility] and [facility] states that the pt current Rx states 2L cont and 4L w/ Exertion. Pt reports that he has a concentrator, pulse Ox, and portable tanks. Pt states that he can have someone bring in a portable tank at time of DC. HHC/SNF: Hx with [facility] HH. Hx at [place] Pt?s goal: Home with CCN Plan: Home with CCN. 6-Click is 23. Pt did well with therapy and denies the need for additional PT/OT. Pt is established with CCN already and plans to continue this after DC. Pt denies further questions, concerns, or needs at this time. CM to follow oxygen requirements. Jenna Rodriguez RN, CM
[2023-11-15 17:22] LABS: Bedside Glucose 151 mg/dL (74-106)
[2023-11-15] MEDS: Atorvastatin Calcium 80 MG Tablet PO (21:10)
[2023-11-16] VITALS (7 sets, daily range): BP systolic 131–143; BP diastolic 52–59; PULSE 84–93; RESP 17–18; TEMP 36.3–36.6; O2SAT 88–98; BMI 31.9
[2023-11-16] MEDS: Liothyronine 5 MCG Tablet 25 MCG PO (06:28)
[2023-11-16] MEDS: Sucralfate 1 GM Tablet PO ×2 (06:28→16:19)
[2023-11-16 06:29] LABS: Bedside Glucose 151 mg/dL (74-106)
[2023-11-16 06:55] LABS: Bedside Glucose 115 mg/dL (74-106)
[2023-11-16 07:41] LABS: Hematocrit 28.1 % (40-54); Hemoglobin 8.8 g/dL (13.0-16.5); Mean Corp Hgb Conc 31.3 g/dL (32-36); Mean Corpuscular Hgb 29.9 pg (27.0-32.0); Mean Corpuscular Volume 95.6 fL (80-94); Mean Platelet Vol. 10.8 fl (6.2-12.0); Platelet Count 116 K/mm3 (150-450); RBC Distribution Width CV 14.2 % (11.6-14.6); RBC Distribution Width SD 48.8 fl (35.1-43.9); Red Blood Count 2.94 M/mm3 (4.6-6.2); White Blood Count 6.3 K/mm3 (4.4-11.0)
[2023-11-16 09:23] LABS: Anion Gap 7 (5-15); BUN 65 mg/dL (7-18); BUN/Creat Ratio 30.4 RATIO (10-20); Calcium,Total 9.4 mg/dL (8.5-10.1); Chloride 106 mmol/L (98-107); Creatinine, Serum 2.14 mg/dL (0.70-1.30); EST Glomerular Filtration Rate 31 mL/min (>60); Est Glom Filt Rate - Afr Amer 38 mL/min (>60); Estimated Creatinine Clearance 26.04 ml/min; Glucose 122 mg/dL (74-106); Magnesium 1.8 mg/dL (1.6-2.6); Phosphorus 3.2 mg/dL (2.5-4.9); Potassium 4.3 mmol/L (3.5-5.1); Sodium Level 141 mmol/L (136-145)
[2023-11-16] MEDS: Pantoprazole Sodium 40 MG Tablet PO (10:41)
[2023-11-16] MEDS: Aspirin E.C. 81 MG Tablet PO (10:41)
[2023-11-16] MEDS: Lisinopril 10 MG Tablet PO (10:41)
[2023-11-16] MEDS: Ferrous Sulfate 325 MG Tablet PO ×2 (10:41→16:19)
[2023-11-16] MEDS: 0.9% Saline Lock 10 ML Syringe IV (10:42)
[2023-11-16] MEDS: Furosemide 40 MG/4 ML Vial IV (10:42)
[2023-11-16] MEDS: Metoprolol(XL)Succ 25 MG Tablet PO (10:42)
[2023-11-16] MEDS: Ipratropium/Albuterol Sulfate 3 ML AMPUL.NEB INHALATION ×2 (10:48→14:41)
[2023-11-16 12:18] LABS: Bedside Glucose 158 mg/dL (74-106)
--- NOTE | 2023-11-16 13:23 | PCM.DC.SUM ---
Providers Date of Admission: 11/14/23 Date of Discharge: 11/16/23 Primary Care Physician: Dr. Emeka Sandoval MD Reason For Visit: HF EXACERBATION Diagnosis Discharge Diagnosis (1) Acute exacerbation of chronic heart failure: Status: Acute Code(s): I50.9 - Heart failure, unspecified (2) Hypoxia: Status: Acute Code(s): R09.02 - Hypoxemia Medications at Discharge Home Medications atorvastatin 80 mg tablet 80 mg PO DAILY CHOLESTEROL 05/02/21 cholecalciferol (vitamin D3) 25 mcg (1,000 unit) capsule 25 mcg PO DAILY vitamin 05/02/21 ipratropium 0.5 mg-albuterol 3 mg (2.5 mg base)/3 mL nebulization soln 3 ml inhalation 4X/DAY PRN sob 05/02/21 liothyronine 25 mcg tablet 25 mcg PO DAILY THYROID 05/02/21 omega-3 fatty acids-vitamin E 1,000 mg capsule 2 cap PO BID SUPPLEMENT 05/02/21 tiotropium bromide 18 mcg capsule with inhalation device (Spiriva with HandiHaler) 18 mcg inhalation DAILY SOB 05/02/21 vitamins A,C,R-hcdf-xqzesh 4,296 mcg-226 mg-90 mg capsule (PreserVision AREDS) 1 cap PO BID vitamin 12/13/21 glimepiride 2 mg tablet 2 mg PO DAILY DM #3 tabs 03/09/23 sucralfate 1 gram tablet (Carafate) 1 g PO BID 30 days #60 tabs 03/23/23 empagliflozin 10 mg tablet (Jardiance) 10 mg PO DAILY 30 days #30 tabs 04/26/23 lisinopril 10 mg tablet 10 mg PO DAILY 06/27/23 metoprolol succinate 25 mg tablet,extended release 24 hr 25 mg PO DAILY 06/27/23 pantoprazole 40 mg tablet,delayed release (Protonix) 40 mg PO DAILY 06/27/23 sucralfate 1 gram tablet 1 g PO BID 06/27/23 torsemide 10 mg tablet 10 mg PO DAILY 06/27/23 vitamins A,C,L-bdjz-diykhm 4,296 mcg-226 mg-90 mg capsule (PreserVision AREDS) 1 cap PO BID 06/27/23 ferrous sulfate 325 mg (65 mg iron) tablet (FeroSul) 325 mg PO BID 11/14/23 Hospital Course Procedures 2-D Echocardiogram Summary of Care Provided Minutes Spent on Discharge: 38 Hospital Course: Mr. West is an 83-year-old white male who presented to the emergency department at [facility] on 11/14/2023 with a chief complaint of shortness of breath that have been progressively worsening over the last 2 weeks. He also complained of concomitant fatigue. He reported that some of his medications were discontinued recently however he is unclear exactly what medications those were. He denied any worsening lower extremity swelling, chest pain, cough, fever, or chills. He sleeps in a recliner at baseline and has been doing so for 6 years. He was taking care of his up until the last year as she was in hospice. She has since . He is on chronic oxygen at 2 to 3 L and is compliant with this at baseline. Vital signs on presentation showed temperature of 97.8, heart rate 96, respiratory 28, blood pressure is 157/57 and pulse ox was 95% on 3 L nasal cannula. CBC showed chronic stable anemia with a normal white count and chronic thrombocytopenia with a normal platelet count. Chemistry panel showed worsening serum creatinine and BUN at 58 and 2.41 (baseline serum creatinine has been running between 2 and 2.2). Serum glucose was normal on presentation at 87. Troponin was 123 and have remained elevated mildly but no significant trend upwards with subsequent troponin being 119 and 150 respectively. BNP was elevated at 262. Chest x-ray showed pulmonary densities in the lower lung hollis consistent with atelectasis/effusions and upon my review seems more consistent with volume overload. He was admitted to the PCU and placed diuretics. The patient feels his exacerbation of his CHF was brought on by him being given the wrong glipizide pill. He indicated the markings on the tablet were different and he feels that that would put him in heart failure. He indicates he watches his salt and fluid intake at home and does not eat out regularly and makes his own food at home. We did discuss using sodium substitutes and he did voiced understanding. He reported to me on the second day of his hospitalization that he had had a weight gain of about 5 pounds in a week. Echocardiogram was performed and has not changed much from his previous and showed an EF of 55% with mild concentric LVH, stage I diastolic function, aortic valve stenosis that is moderate to severe. He improved to the point where he is back on his home oxygen within about 24 hours of admission. We continued IV diuretics for another 24 hours and performed ambulatory pulse ox at which time he was on his baseline oxygen and he remained on baseline oxygen at rest. We discussed him taking an extra torsemide pill at home if he notices a weight gain of more than 2 to 3 pounds in a 24-hour period. He states he does not weigh himself on a daily basis and will keep track. I have asked him to follow-up with cardiology within the next 2 weeks for hospital follow-up. Of asked him to follow-up with his primary care physician within the next 2 weeks as well. No other medication changes were made other than the additional torsemide with weight gain. Discharge diagnoses: Acute hypoxia on chronic hypoxic respiratory failure Acute on chronic heart failure with preserved ejection fraction Chronic anemia Chronic thrombocytopenia Carotid artery stenosis TIA Hypothyroidism COPD Nonobstructive CAD Essential hypertension Hyperlipidemia DM-2 Obesity Physical Exam Narrative Patient states he feels back to baseline. Was able to ambulate without any difficulty on his baseline oxygen with nursing. States his daughter will be here at 5 PM to pick him up. Const alert, oriented x3, no apparent distress and well nourished; Negative for average body habitus or healthy appearing Constitutional Narrative: Obese, elderly, white male, sitting up in a chair at the bedside, watching television, appears comfortable, nontoxic, appears chronically ill General Appearance: cooperative, comfortable, well kempt and well developed Exam Limitations: no limitations Nutritional Appearance: obese HEENT normocephalic, head/scalp atraumatic and moist oral mucous membranes; Negative for hearing grossly normal bilaterally HEENT Narrative: Dentures in place, Mallampati 3, no thrush Eyes PERRL and EOMs intact bilaterally; Negative for conjunctivae normal Eyes Narrative: Mild conjunctiva pallor bilaterally, no scleral icterus Neck no lymphadenopathy and supple Neck Narrative: Neck is short and thick, trachea midline, no thrush Resp normal respiratory effort, no retractions, no use of accessory muscles and clear to auscultation bilaterally Resp Narrative: Diffusely diminished but clear Auscultation: Negative for crackles, rhonchi or wheezes Cardio regular rate, regular rhythm, S1 normal heart sound, S2 normal heart sound, no murmurs, no rub, no gallops and no clicks GI normal to inspection, nondistended, normoactive bowel sounds, soft to palpation and non-tender GI Narrative: Protuberant abdomen with umbilical hernia Extremity no clubbing, cyanosis or edema Extremity Narrative: Trace to 1+ bilateral lower extremity pitting edema Skin no wounds, skin turgor normal and no jaundice Skin Narrative: Few scattered ecchymotic changes, pale Neuro oriented x3, CN's II-XII intact bilaterally, moves all extremities and no focal motor deficits Speech: speech normal Psych affect normal Psych Narrative: Pleasant, eye contact is good, patient interacts appropriately Weight / BMI Weight Weight: 86.9 kg Body Mass Index (BMI) 31.9 ABG / Lab / Microbiology Data 11/16/23 07:11 11/16/23 07:11 Laboratory: Laboratory Results - last 24 hr 11/15/23 17:00: POC Glucose 151 H 11/15/23 21:09: POC Glucose 151 H 11/16/23 06:30: POC Glucose 115 H 11/16/23 07:11: WBC 6.3, RBC 2.94 L, Hgb 8.8 L, Hct 28.1 L, MCV 95.6 H, MCH 29.9, MCHC 31.3 L, RDW Std Deviation 48.8 H, RDW Coeff of John 14.2, Plt Count 116 L, MPV 10.8, Sodium 141, Potassium 4.3, Chloride 106, Carbon Dioxide 28.0, Anion Gap 7, BUN 65 H, Creatinine 2.14 H, Estim Creat Clear Calc 26.04, Est GFR (MDRD) Af Amer 38 L, Est GFR (MDRD) Non-Af 31 L, BUN/Creatinine Ratio 30.4 H, Glucose 122 H, Calcium 9.4, Phosphorus 3.2, Magnesium 1.8 11/16/23 12:00: POC Glucose 158 H Radiography Diagnostic Testing: Radiology Impression Chest X-Ray 11/15/23 05:55 IMPRESSION: No definite change since yesterday. Electronically Signed: Jayden Coy MD at 23:55 EDT , Echocardiogram 11/15/23 05:55 Interpretation Summary Normal LV size. Mild concentric left ventricular hypertrophy. The left ventricular ejection fraction is 55 %. Stage 1 diastolic dysfunction. Mean aortic valve gradient 38 mmHg. Moderate to severe aortic stenosis. Ordering Physician: Tracy Angel Referring Physician: EMEKA SANDOVAL Performed By: Jennifer Coleman RDCS D/C Instructions Discharge Diet: Low fat / Low cholesterol (Restrict oral fluid intake to less than 2 L daily) and 2000 mg Sodium Diet Discharge Activity: Return to Normal Activity Meaningful Use Info Meaningful Use Meaningful Use Diagnoses (Choose all that apply): CHF CHF RICH/ARB ordered at discharge?: Yes Documented LVEF (%): 55 Ischemic Stroke Statin Dosing Therapy Reference: STATIN DOSE THERAPY REFERENCE: * Patients > 75 years receive moderate or high dose statin therapy. * Patients 75 years or YOUNGER should receive HIGH intensity statin dose unless contraindicated. You will be required to document reason for non-treatment if statin daily dose does not meet guidelines. HIGH DOSE STATIN THERAPY DAILY Atorvastatin > than or = to 40 mg Rosuvastatin > than or = to 20 mg Amlodipine + Atorvastatin > than or = to 2.5/40 mg Ezetimibe + Simvastatin 10/80 mg Simvastatin 80mg Discharge Plan Admission Admit Date/Time: 11/14/23 23:57 Primary Reason for Your Visit: Shortness of breath Attending Provider: Michelle Washburn Primary Care Provider: Emeka Sandoval Consulting Providers: Tracy Angel Instructions Additional Instructions / Restrictions: 1. Please weigh yourself daily in the morning on the same scale as discussed and if you gain more than 2 pounds in a 24-hour period please take an extra torsemide. Discharge Orders/Prescriptions Prescriptions: Continued atorvastatin 80 mg tablet 80 mg PO DAILY ipratropium-albuterol 0.5 mg-3 mg(2.5 mg base)/3 mL solution for nebulization 3 ml inhalation 4X/DAY PRN (Reason: sob) Patient Comments: inhale contents of 1 vial ( 3 milliliters ) in nebulizer by mouth... (REFER TO PRESCRIPTION NOTES). liothyronine 25 mcg tablet 25 mcg PO DAILY Patient Comments: TAKE 1 TABLET BY MOUTH ONCE DAILY FOR 90 DAYS tiotropium bromide [Spiriva with HandiHaler] 18 mcg capsule, w/inhalation device 18 mcg INHALATION DAILY Patient Comments: INHALE THE CONTENTS OF 1 CAPSULE TWICE EACH TIME VIA HANDIHALER ONCE DAILY cholecalciferol (vitamin D3) 25 mcg (1,000 unit) Capsule 25 mcg PO DAILY omega-3 fatty acids-vitamin E 1,000 mg Capsule 2 cap PO BID PreserVision AREDS [id number] Capsule 1 cap PO BID Jardiance 10 mg Tablet 10 mg PO DAILY 30 Days Qty: 30 0RF glimepiride 2 mg tablet 2 mg PO DAILY Qty: 3 0RF Patient Comments: take 1 tablet by mouth once daily WITH FIRST MEAL OF THE DAY Rx Instructions: Hold if glucose less than 130 mg/dl torsemide 10 mg tablet 10 mg PO DAILY PreserVision AREDS 4,296 mcg-226 mg-90 mg capsule 1 cap PO BID lisinopril 10 mg tablet 10 mg PO DAILY sucralfate 1 gram tablet 1 g PO BID pantoprazole [Protonix] 40 mg tablet,delayed release (DR/EC) 40 mg PO DAILY metoprolol succinate 25 mg tablet extended release 24 hr 25 mg PO DAILY ferrous sulfate [FeroSul] 325 mg (65 mg iron) tablet 325 mg PO BID sucralfate [Carafate] 1 gram tablet 1 g PO BID 30 Days Qty: 60 2RF Rx Instructions: Start BID administration after TID administration for 30 days has been completed. Referrals / Follow Up: Emeka Sandoval MD [Primary Care Provider] - Within 2 Weeks Bart Galo NP, PATIENT SAFETY ATTENDANT-C [Med Staff - [facility] Practice Prof] - Within 2 Weeks (Call Sunday to set up appt) Disposition Disposition (needs filled in before D/C Order can be placed): Home, Self Care Charges/Coding Visit Charges Inpatient E&M: 73325 Disch Hosp >30min
--- NOTE | 2023-11-16 14:15 | CASEMGMT ---
Patient has order for discharge. Patient is maintaining on home oxygen orders. ALMA RINALDI called CCN to update regarding discharge. Per Olivier they will see him on Sunday or Sunday. RN CM in to discuss needs at discharge. RN CM reinforced the importance of following dietary restrictions and weighing self daily, patient voiced understanding. Patient states family will bring portable oxygen at home. Patient denied further needs or help at discharge. Patient aware to attend follow-up appts. Patient had no further questions or concerns.
[2023-11-16] MEDS: Insulin Lispro 100 UNIT/ML INSULN.PEN SC (16:19)
[2023-11-16 16:56] LABS: Bedside Glucose 176 mg/dL (74-106)
== END 2023-11-16 17:11 | disposition home or self-care (01) | DRG 291 ==
LOC: ED 23:30 → PCU 11-15 02:03
PROVIDERS: Admitting Provider Family Medicine; Emergency Provider Emergency Medicine; PCP Family Medicine; Visit Provider Internal Medicine
DX: I13.0 Hypertensive heart and chronic kidney disease with heart failure and stage 1 through stage 4 chronic kidney disease, or unspecified chronic kidney disease (principal); I50.33 Acute on chronic diastolic (congestive) heart failure; J96.11 Chronic respiratory failure with hypoxia; N18.4 Chronic kidney disease, stage 4 (severe); E11.22 Type 2 diabetes mellitus with diabetic chronic kidney disease; D64.9 Anemia, unspecified; E03.9 Hypothyroidism, unspecified; E11.65 Type 2 diabetes mellitus with hyperglycemia; J44.9 Chronic obstructive pulmonary disease, unspecified; K75.81 Nonalcoholic steatohepatitis (NASH); I65.23 Occlusion and stenosis of bilateral carotid arteries; Z68.32 Body mass index [BMI] 32.0-32.9, adult; K21.9 Gastro-esophageal reflux disease without esophagitis; E78.00 Pure hypercholesterolemia, unspecified; I25.10 Atherosclerotic heart disease of native coronary artery without angina pectoris; I25.2 Old myocardial infarction; Z79.82 Long term (current) use of aspirin; Z87.891 Personal history of nicotine dependence; Z79.84 Long term (current) use of oral hypoglycemic drugs; Z79.02 Long term (current) use of antithrombotics/antiplatelets; E66.9 Obesity, unspecified; Z86.73 Personal history of transient ischemic attack (TIA), and cerebral infarction without residual deficits; Z99.81 Dependence on supplemental oxygen; Z79.899 Other long term (current) drug therapy
CPT/HCPCS: 36415; 71045; 80048; 80053; 80061; 82962; 83036; 83735; 83880; 84100; 84145; 84443; 84484; 85025; 85027; 93005; 93306; 94640; 94668; 97161; 97802; 99285; Q9957; A4216; C8929; J1940

== ENCOUNTER 2023-11-18 13:45 | Inpatient (IN) | payer MEDICARE, SELFPAY ==
[2023-11-18] VITALS (15 sets, daily range): BP systolic 103–142; BP diastolic 48–130; PULSE 79–112; RESP 12–34; TEMP 36.1–36.6; O2SAT 97–100; BMI 31.5; BMI 31.6
--- NOTE | 2023-11-18 14:13 | EKG12_ITS ---
Test Reason : SOB Blood Pressure : / mmHG Vent. Rate : 105 BPM Atrial Rate : 000 BPM P-R Int : 000 ms QRS Dur : 084 ms QT Int : 326 ms P-R-T Axes : 000 -03 052 degrees QTc Int : 430 ms Accelerated Junctional rhythm Nonspecific ST and T wave abnormality Abnormal ECG Confirmed by JOSHUA CARRILLO, JACOB ([id number]), index editor ZACKARY MARTINEZ ([id number]) on 11/19/2023 2:47:58 PM Referred By: ES/CG Confirmed By:JACOB LEWIS MD
--- NOTE | 2023-11-18 14:13 | RAD_ITS ---
HISTORY: SOB. TECHNIQUE: XR Chest 1 View. COMPARISON: 11/15/2023. FINDINGS: CARDIOMEDIASTINAL BORDERS: Stable with calcification of the aortic knob and prominent pulmonary vessels. LUNGS: Decreased linear bibasilar opacities. PLEURA: Decreased mild pleural effusions. OTHER: Age-indeterminate nondisplaced right seventh rib fracture. Degenerative change. RAD/Chest 1 View (Portable) IMPRESSION: Decreased mild bilateral pleural effusions and bibasilar opacities. Electronically Signed: Jamila Nichols MD at 15:08 EDT ,
--- NOTE | 2023-11-18 14:15 | ED.VIS.DYS ---
HPI History of Present Illness Chief Complaint: Shortness of Breath Informant: patient Narrative Narrative: Patient is an 83-year-old male with history of chronic hypoxia (wears 2 to 3 L at home at baseline), coronary artery disease, hyperlipidemia, renal insufficiency, hypertension, anemia and recent admission for acute exacerbation of chronic heart failure with preserved ejection fraction as well as acute on chronic hypoxic respiratory failure. Patient was discharged from the hospital 2 days ago. He was admitted from the fourth to the 6. He states that he received IV Lasix in the hospital. He attributes his symptoms by getting the wrong glipizide pill recently. It sounds like it was a different data entry). Discharge summary reviewed which shows a he had an EF 55% with mild concentric LVH and stage I diastolic dysfunction, aortic valve stenosis that is moderate to severe and this was pretty stable compared to his prior echocardiograms. Patient was diuresed and discharged back on his baseline home oxygen. Was instructed to take an extra torsemide pill at home if he notices a weight gain of more than 2 to 3 pounds in a 24-hour period. Patient states has been feeling well since being home however woke up very short of breath today. Denies any associated cough or chest pain. Denies any fever or chills. Denies any swelling of his legs. Has never been on BiPAP before. States he is wheezing and tried breathing treatments at home with no relief of his symptoms. No other complaints or concerns reported. [facility] Medical History Loss of hearing No natural teeth Wears glasses Poor historian Thyroid disease Low iron High cholesterol Syncope History of GI bleed Shortness of breath on exertion History of echocardiogram Cardiology follow-up encounter Symptomatic anemia Diabetes Kidney disease Former smoker On home oxygen therapy TIA (transient ischemic attack) Myocardial infarct Hypertension Diastolic CHF Acute and chronic respiratory failure with hypoxia History of CAD (coronary artery disease) Nonrheumatic aortic (valve) stenosis Mild left ventricular hypertrophy History of left heart catheterization (LHC) (~03/15/22) Atherosclerotic heart disease of [place] coronary artery without angina pectoris Aortic valve stenosis, acquired CAD (coronary artery disease) COPD (chronic obstructive pulmonary disease) Polyarthralgia Diabetes mellitus, type 2 Former tobacco use Obesity Hypothyroidism HLD (hyperlipidemia) HTN (hypertension) Chronic respiratory failure with hypoxia Home Medications ?Medication ?Instructions ?Recorded ?Last Taken ?Type atorvastatin 80 mg tablet 80 mg PO DAILY CHOLESTEROL 05/02/21 11/17/23 History cholecalciferol (vitamin D3) 25 25 mcg PO DAILY vitamin 05/02/21 11/18/23 History mcg (1,000 unit) capsule ipratropium 0.5 mg-albuterol 3 mg 3 ml inhalation 4X/DAY PRN sob 05/02/21 11/18/23 History (2.5 mg base)/3 mL nebulization soln liothyronine 25 mcg tablet 25 mcg PO DAILY THYROID 05/02/21 11/18/23 History omega-3 fatty acids-vitamin E 2 cap PO BID SUPPLEMENT 05/02/21 11/18/23 History 1,000 mg capsule tiotropium bromide 18 mcg capsule 18 mcg inhalation DAILY SOB 05/02/21 11/17/23 History with inhalation device (Spiriva with HandiHaler) vitamins A,C,Y-itbg-[id number] 4,296 1 cap PO BID vitamin 12/13/21 11/18/23 History mcg-226 mg-90 mg capsule (PreserVision AREDS) glimepiride 2 mg tablet 2 mg PO DAILY DM #3 tabs 03/09/23 11/18/23 Rx empagliflozin 10 mg tablet 10 mg PO DAILY 30 days #30 tabs 04/26/23 11/18/23 Rx (Jardiance) lisinopril 10 mg tablet 10 mg PO DAILY 06/27/23 11/18/23 History metoprolol succinate 25 mg 25 mg PO DAILY 06/27/23 11/18/23 History tablet,extended release 24 hr pantoprazole 40 mg tablet,delayed 40 mg PO DAILY 06/27/23 11/18/23 History release (Protonix) sucralfate 1 gram tablet 1 g PO BID 06/27/23 11/18/23 History torsemide 10 mg tablet 10 mg PO DAILY 06/27/23 11/18/23 History ferrous sulfate 325 mg (65 mg 325 mg PO BID 11/14/23 11/18/23 History iron) tablet (FeroSul) aspirin 81 mg tablet,delayed 81 mg PO DAILY 11/18/23 11/18/23 History release (Adult Aspirin Regimen) Allergy/AdvReac Type Severity Reaction Status Date / Time aliskiren (From [place]) Allergy Intermediate Other Verified 09/08/24 13:52 valsartan (From [place]) Allergy Intermediate Other Verified 11/18/23 13:52 codeine AdvReac Upset Verified 11/18/23 13:52 Stomach Family History Mother CVA (cerebral vascular accident) Heart disease Myocardial infarction Hx of CABG Hypertension Father CVA (cerebral vascular accident) Heart disease Surgical History S/P cataract extraction Social History household members: none housing: house Smoking Status: Former smoker how long ago did patient quit smoking: Quit 2010, prior 1 ppd since teen. alcohol intake: former year quit: 2010 substance use type: does not use ROS ROS ED Constitutional Constitutional ED: Denies chills or fever(s) ENT ENT ED: Denies rhinorrhea or sore throat Cardiovascular Cardiovascular: Denies chest pain or palpitations Respiratory/Chest Respiratory/Chest: Reports dyspnea and dyspnea on exertion; Denies cough or sputum Gastrointestinal Gastrointestinal: Denies abdominal pain, nausea or vomiting Musculoskeletal Musculoskeletal: Denies arthralgias or myalgias Integumentary Denies rash Hematologic/Lymphatic Hematologic/Lymphatic: Denies easy bleeding or easy bruising EXAM Physical Exam Const Vital Signs: 11/18/23 13:46 11/18/23 13:50 11/18/23 13:52 Temperature 97.9 F 97.6 F L Temperature Source Temporal Temporal Pulse Rate 107 H 107 H Respiratory Rate 27 H 33 H Respiratory Effort Short of Breath Labored Accessory Muscle Use Respiratory Depth Shallow Respiratory Pattern Tachypnea Blood Pressure 142/130 H 112/90 H Blood Pressure Mean 134 97 Pulse Ox 97 99 Oxygen Delivery Method Nasal Cannula Nasal Cannula Nasal Cannula Oxygen Flow Rate (L/min) 4 4 4 Fraction of Inspired Oxygen (FIO2) 11/18/23 14:22 11/18/23 14:22 11/18/23 14:50 Temperature 97.7 F L Temperature Source Oral Pulse Rate 102 H 102 H Respiratory Rate 26 H 30 H Respiratory Effort Respiratory Depth Respiratory Pattern Tachypnea Blood Pressure 103/61 Blood Pressure Mean 75 Pulse Ox 99 100 Oxygen Delivery Method Nasal Cannula Nasal Cannula Oxygen Flow Rate (L/min) 4 4 Fraction of Inspired Oxygen (FIO2) 11/18/23 14:55 11/18/23 15:22 Temperature Temperature Source Pulse Rate 112 H 93 Respiratory Rate 34 H 22 H Respiratory Effort Respiratory Depth Respiratory Pattern Tachypnea Tachypnea Blood Pressure Blood Pressure Mean Pulse Ox 100 100 Oxygen Delivery Method Oxygen Flow Rate (L/min) Fraction of Inspired Oxygen (FIO2) 40 40 Positive well nourished and well developed Constitutional Narrative: Mild distress secondary to increased work of breathing General Appearance ED: well developed HEENT Reports moist mucous membranes Eyes PERRL Neck supple and no JVD Resp Resp Narrative: Tachypneic, diminished breath sounds at the bases with expiratory wheezing present. No crackles appreciated. Auscultation: wheezes and diminished lung sounds; Negative for rales or rhonchi Cardio no murmurs Rate: tachycardic GI non-tender and non-distended Extremity normal to inspection General Extremety ED: Negative for edema or tenderness General Extremity: Negative for edema Neuro oriented x3 Sensorium / Orientation: alert Motor Exam: general weakness Psych mental status grossly normal Skin no wounds MDM MDM MDM Narrative Medical decision making narrative: Patient evaluated for worsening shortness of breath. Has significant cardiac and pulmonary history. Patient is tachypneic with increased work of breathing. He has expiratory wheezing present. Differential includes was not limited to pulmonary emboli (was recently admitted), COPD exacerbation, pneumonia, viral syndrome or exacerbation of heart failure. Patient is given a DuoNeb and will reevaluate for symptoms. Will obtain lab work including VBG, CBC, BMP, troponin and D-dimer. Will obtain a chest x-ray. Patient currently on 4 L of oxygen. VBG shows hypercapnic respiratory acidosis. Patient is ordered BiPAP. He does not tolerate this. Will trial a small dose of IV Ativan to see if he better tolerates it. I am informed by respiratory that he is tolerating the BiPAP much better now that he has Ativan on board. His workup is otherwise largely normal. Patient has a chronic but stable anemia with hemoglobin of 8.5. He has a mild but stable thrombocytopenia. D-dimer is normal for age-adjusted at 0.83. BMP shows a creatinine of 2.56 which is around the patient's baseline. High sensitive troponin is normal at 32 and patient's BNP is actually down at 107 (was 362 4 days ago). Patient is given a DuoNeb with no significant improvement. Due to his wheezing and hypercapnia we will treat this more as a COPD exacerbation and give Solu-Medrol. Patient will be admitted after discussion with admitting physician, Dr. Alcantara. Discussed ICU versus PCU admission as patient does have a new onset requirement of noninvasive ventilation however ultimately decided to go to the PCU. Patient overall is quite well-appearing and remains hemodynamically stable in the emergency room. History & Record Review Additional record(s) reviewed:: Prior inpatient record (See HPI) Lab Data Attestation: I reviewed the patient's lab results. Labs: Laboratory Results - last 24 hr 11/18/23 11/18/23 14:01 14:55 WBC 7.0 RBC 2.79 L Hgb 8.5 L Hct 27.2 L MCV 97.5 H MCH 30.5 MCHC 31.3 L RDW Std Deviation 51.0 H RDW Coeff of John 14.3 Plt Count 116 L MPV 11.2 Immature Gran % (Auto) 0.400 Neut % (Auto) 74.6 H Lymph % (Auto) 14.1 L [place] % (Auto) 6.0 Eos % (Auto) 4.3 Baso % (Auto) 0.6 Absolute Neuts (auto) 5.3 Absolute Lymphs (auto) 0.99 Nucleated RBC % 0 D-Dimer Quant (PE/DVT) 0.83 H* Sodium 144 Potassium 4.5 Chloride 110 H Carbon Dioxide 28.0 Anion Gap 6 BUN 93 H Creatinine 2.56 H Estim Creat Clear Calc 21.65 Est GFR (MDRD) Af Amer 31 L Est GFR (MDRD) Non-Af 26 L BUN/Creatinine Ratio 36.3 H Glucose 188 H Calcium 8.7 Troponin I High Sens 32 B-Natriuretic Peptide 107.6 H ABG Data ABG results: ABG 11/18/23 14:30 Specimen Type DAYANA Sample Site Not entered O2 % 4.0 VBG pH 7.31 L VBG pO2 50 H VBG HCO3 31 H VBG Total CO2 33 VBG O2 Sat (Calc) 80 H VBG Base Excess 5 H POC Mix VBG pCO2 Pt Tmp 61.5 H O2 Delivery Device Cannula Radiography Diagnostic Testing: Clinical Impression(s) from Imaging Studies Chest X-Ray 11/18/23 14:13 IMPRESSION: Decreased mild bilateral pleural effusions and bibasilar opacities. Electronically Signed: Jamila Nichols MD at 15:08 EDT , Rhythm Strip Rhythm Strip: Sinus Tach Rate: 105 Ectopy: None EKG Initial EKG: Attestation: I personally reviewed and interpreted this EKG as follows: Interpretation: Sinus Tachycardia Comments: Sinus tachycardia at a rate of 105 bpm with first-degree AV block Normal axis Nonspecific T wave changes Prior EKG tracings: available for review Prior: Unchanged Discharge Plan Triage Chief Complaint: Shortness of Breath ED Provider: Malina Ma Dx/Rx/DC Orders Clinical Impression: Acute and chronic respiratory failure with hypercapnia, Asthma exacerbation in COPD Prescriptions: No Action atorvastatin 80 mg tablet 80 mg PO DAILY ipratropium-albuterol 0.5 mg-3 mg(2.5 mg base)/3 mL solution for nebulization 3 ml inhalation 4X/DAY PRN (Reason: sob) Patient Comments: inhale contents of 1 vial ( 3 milliliters ) in nebulizer by mouth... (REFER TO PRESCRIPTION NOTES). liothyronine 25 mcg tablet 25 mcg PO DAILY Patient Comments: TAKE 1 TABLET BY MOUTH ONCE DAILY FOR 90 DAYS tiotropium bromide [Spiriva with HandiHaler] 18 mcg capsule, w/inhalation device 18 mcg INHALATION DAILY Patient Comments: INHALE THE CONTENTS OF 1 CAPSULE TWICE EACH TIME VIA HANDIHALER ONCE DAILY cholecalciferol (vitamin D3) 25 mcg (1,000 unit) Capsule 25 mcg PO DAILY omega-3 fatty acids-vitamin E 1,000 mg Capsule 2 cap PO BID PreserVision AREDS [id number] Capsule 1 cap PO BID Jardiance 10 mg Tablet 10 mg PO DAILY 30 Days Qty: 30 0RF glimepiride 2 mg tablet 2 mg PO DAILY Qty: 3 0RF Patient Comments: take 1 tablet by mouth once daily WITH FIRST MEAL OF THE DAY Rx Instructions: Hold if glucose less than 130 mg/dl torsemide 10 mg tablet 10 mg PO DAILY lisinopril 10 mg tablet 10 mg PO DAILY sucralfate 1 gram tablet 1 g PO BID pantoprazole [Protonix] 40 mg tablet,delayed release (DR/EC) 40 mg PO DAILY metoprolol succinate 25 mg tablet extended release 24 hr 25 mg PO DAILY ferrous sulfate [FeroSul] 325 mg (65 mg iron) tablet 325 mg PO BID aspirin [Adult Aspirin Regimen] 81 mg tablet,delayed release (DR/EC) 81 mg PO DAILY Primary Care Provider: mEeka Hernandez Referrals: Emeka Hernandez MD [Primary Care Provider] - Print Language: Gu[place] Disposition Disposition: Acute Care Hospital [facility]
[2023-11-18] MEDS: Ipratropium/Albuterol Sulfate 3 ML AMPUL.NEB INHALATION ×3 (14:21→22:44)
[2023-11-18 14:34] LABS: Blood Gas Specimen Type VEN; O2 Delivery Device Cannula; SITE Not entered; VBG BASE EXCESS 5 mmol/L (-1.0-3.5); VBG Bicarbonate 31 mmol/L (22-26); VBG PO2 50 mmHg (25-40); VBG SO2 80 % (50-70); VBG TCO2 33 mmol/L (23-33); VBG pCO2 61.5 mmHg (41-51); VBG pH 7.31 (7.32-7.42)
[2023-11-18 14:40] LABS: Troponin-I HS (w/2H Reflex) 32 pg/mL (3.0-78.0)
[2023-11-18 14:43] LABS: BNP,B-Type NATRIURETIC PEPTIDE 107.6 pg/mL (0-100)
[2023-11-18 14:48] LABS: D-Dimer Quantitative (DVT/PE) 0.83 FEU/ug/m (0.27-0.49)
[2023-11-18 15:06] LABS: Anion Gap 6 (5-15); BUN 93 mg/dL (7-18); BUN/Creat Ratio 36.3 RATIO (10-20); Calcium,Total 8.7 mg/dL (8.5-10.1); Chloride 110 mmol/L (98-107); Creatinine, Serum 2.56 mg/dL (0.70-1.30); EST Glomerular Filtration Rate 26 mL/min (>60); Est Glom Filt Rate - Afr Amer 31 mL/min (>60); Estimated Creatinine Clearance 21.65 ml/min; Glucose 188 mg/dL (74-106); Potassium 4.5 mmol/L (3.5-5.1); Sodium Level 144 mmol/L (136-145)
[2023-11-18 15:11] LABS: Absolute Lymphocyte Count 0.99 X10^3/uL (0.83-4.51); Absolute Neutrophil Count 5.3 X10^3/uL (2.0-7.7); Basophil# 0.04 X10^3/uL; Basophil% 0.6 % (0-1); Eosinophils% 4.3 % (0-5); Hematocrit 27.2 % (40-54); Hemoglobin 8.5 g/dL (13.0-16.5); Lymphocyte # 0.99 X10^3/ul (0.83-4.51); Lymphocyte % 14.1 % (19-41); Mean Corp Hgb Conc 31.3 g/dL (32-36); Mean Corpuscular Hgb 30.5 pg (27.0-32.0); Mean Corpuscular Volume 97.5 fL (80-94); Mean Platelet Vol. 11.2 fl (6.2-12.0); Monocyte# 0.42 X10^3/uL; NRBC Flagged by Analyzer 0 % (0-5); Neutrophil # 5.25 X10^3/uL (2.7-7.7); Neutrophil % 74.6 % (47-70); Platelet Count 116 K/mm3 (150-450); RBC Distribution Width CV 14.3 % (11.6-14.6); Red Blood Count 2.79 M/mm3 (4.6-6.2)
[2023-11-18] MEDS: LORazepam 2 MG/ML Syringe 0.5 MG IV (15:12)
--- NOTE | 2023-11-18 15:31 | PCM.HP.STD ---
HPI - General General Date of Admission: 11/18/23 Date of Service: 11/18/23 Chief Complaint: shortness of breath HPI Narrative BEULAH BRIGHT, is a 83 M with a PMH as outlined including heart failure and COPD who presents via the ED On 11/18/2023 with a complaint of shortness of breath. He was just discharged from the hospital 2 days ago after being managed for acute exacerbation of heart failure. He was diuresed and weaned down to his baseline oxygen of 2-3L. He was discharged home on 11/16/2023, from where he presents with a complaint of shortness of breath. HE said he had started getting short of breath after discharge, and also started wheezing. He denied any productive cough and denied any chest pain, palpitations, dizziness, nausea, vomiting or any other symptoms. Review of systems is otherwise negative. Vitals in the ED were temp of 97.7F, OR of 112, RR of 22 and he was initially on oxygen by nasal canula, but was transitioned to BIPAP based on VBG results. CBC showed hb of 8.5, wbc of 7, platelets of 116; D dimer was 0.83. Chemistry showed sodium of 144, potassium of 4.5, Creatinine of 2.56 and bicarb of 28. BNP was 107.6. CXR showed decreased mild bilateral pleural effusions and bibasilar opacities. He is being admitted to be managed for acute on chronic hypoxic respiratory failure due to due COPD exacerbation. [facility] Medical History Loss of hearing No natural teeth Wears glasses Poor historian Thyroid disease Low iron High cholesterol Syncope History of GI bleed Shortness of breath on exertion History of echocardiogram Cardiology follow-up encounter Symptomatic anemia Diabetes Kidney disease Former smoker On home oxygen therapy TIA (transient ischemic attack) Myocardial infarct Hypertension Diastolic CHF Acute and chronic respiratory failure with hypoxia History of CAD (coronary artery disease) Nonrheumatic aortic (valve) stenosis Mild left ventricular hypertrophy History of left heart catheterization (LHC) (~03/15/22) Atherosclerotic heart disease of [place] coronary artery without angina pectoris Aortic valve stenosis, acquired CAD (coronary artery disease) COPD (chronic obstructive pulmonary disease) Polyarthralgia Diabetes mellitus, type 2 Former tobacco use Obesity Hypothyroidism HLD (hyperlipidemia) HTN (hypertension) Chronic respiratory failure with hypoxia Home Medications ?Medication ?Instructions ?Recorded ?Last Taken ?Type atorvastatin 80 mg tablet 80 mg PO DAILY CHOLESTEROL 05/02/21 11/17/23 History cholecalciferol (vitamin D3) 25 25 mcg PO DAILY vitamin 05/02/21 11/18/23 History mcg (1,000 unit) capsule ipratropium 0.5 mg-albuterol 3 mg 3 ml inhalation 4X/DAY PRN sob 05/02/21 11/18/23 History (2.5 mg base)/3 mL nebulization soln liothyronine 25 mcg tablet 25 mcg PO DAILY THYROID 05/02/21 11/18/23 History omega-3 fatty acids-vitamin E 2 cap PO BID SUPPLEMENT 05/02/21 11/18/23 History 1,000 mg capsule tiotropium bromide 18 mcg capsule 18 mcg inhalation DAILY SOB 05/02/21 11/17/23 History with inhalation device (Spiriva with HandiHaler) vitamins A,C,C-nevi-czzubt 4,296 1 cap PO BID vitamin 12/13/21 11/18/23 History mcg-226 mg-90 mg capsule (PreserVision AREDS) glimepiride 2 mg tablet 2 mg PO DAILY DM #3 tabs 03/09/23 11/18/23 Rx empagliflozin 10 mg tablet 10 mg PO DAILY 30 days #30 tabs 04/26/23 11/18/23 Rx (Jardiance) lisinopril 10 mg tablet 10 mg PO DAILY 06/27/23 11/18/23 History metoprolol succinate 25 mg 25 mg PO DAILY 06/27/23 11/18/23 History tablet,extended release 24 hr pantoprazole 40 mg tablet,delayed 40 mg PO DAILY 06/27/23 11/18/23 History release (Protonix) sucralfate 1 gram tablet 1 g PO BID 06/27/23 11/18/23 History torsemide 10 mg tablet 10 mg PO DAILY 06/27/23 11/18/23 History ferrous sulfate 325 mg (65 mg 325 mg PO BID 11/14/23 11/18/23 History iron) tablet (FeroSul) aspirin 81 mg tablet,delayed 81 mg PO DAILY 11/18/23 11/18/23 History release (Adult Aspirin Regimen) Allergy/AdvReac Type Severity Reaction Status Date / Time aliskiren (From [place]a) Allergy Intermediate Other Verified 11/18/23 13:52 valsartan (From [place]a) Allergy Intermediate Other Verified 11/18/23 13:52 codeine AdvReac Upset Verified 11/18/23 13:52 Stomach Family History Mother CVA (cerebral vascular accident) Heart disease Myocardial infarction Hx of CABG Hypertension Father CVA (cerebral vascular accident) Heart disease Surgical History S/P cataract extraction Social History household members: none housing: house Smoking Status: Former smoker how long ago did patient quit smoking: Quit 2010, prior 1 ppd since teen. alcohol intake: former year quit: 2010 substance use type: does not use ROS Constitutional Constitutional: Reports fatigue, malaise and weakness; Denies anorexia, chills or fever(s) Eyes Eyes: Denies change in vision ENT HEENT: Denies dysphagia, headache(s) or sore throat Cardiovascular Cardiovascular: Reports dyspnea on exertion; Denies chest pain, edema, lightheadedness, orthopnea, palpitations, paroxysmal nocturnal dyspnea, rapid heart rate or syncope Respiratory/Chest Respiratory/Chest: Reports cough, dyspnea, shortness of breath at rest, shortness of breath with exertion and wheezing; Denies excessive phlegm production, hemoptysis or productive cough Gastrointestinal Gastrointestinal: Denies abdominal pain, constipation, diarrhea, nausea or vomiting Genitourinary Genitourinary: Denies dysuria, urinary frequency, urinary hesitancy or urinary urgency Musculoskeletal Musculoskeletal: Denies arthralgias or back pain Neurologic Neurologic: Denies confusion, dizziness, focal weakness, headache(s), numbness, seizures, syncope or tingling Psychiatric Psychiatric: Denies anxiety or depression Endocrine Endocrinology: Denies change in body appearance Vital Signs Vital Signs Vital Signs: 11/18/23 13:46 11/18/23 13:50 11/18/23 13:52 Temperature 97.9 F 97.6 F L Temperature Source Temporal Temporal Pulse Rate 107 H 107 H Respiratory Rate 27 H 33 H Respiratory Effort Short of Breath Labored Accessory Muscle Use Respiratory Depth Shallow Respiratory Pattern Tachypnea Blood Pressure 142/130 H 112/90 H Blood Pressure Mean 134 97 Pulse Ox 97 99 Oxygen Delivery Method Nasal Cannula Nasal Cannula Nasal Cannula Oxygen Flow Rate (L/min) 4 4 4 Fraction of Inspired Oxygen (FIO2) 11/18/23 14:22 11/18/23 14:22 11/18/23 14:50 Temperature 97.7 F L Temperature Source Oral Pulse Rate 102 H 102 H Respiratory Rate 26 H 30 H Respiratory Effort Respiratory Depth Respiratory Pattern Tachypnea Blood Pressure 103/61 Blood Pressure Mean 75 Pulse Ox 99 100 Oxygen Delivery Method Nasal Cannula Nasal Cannula Oxygen Flow Rate (L/min) 4 4 Fraction of Inspired Oxygen (FIO2) 11/18/23 14:55 11/18/23 15:22 Temperature Temperature Source Pulse Rate 112 H 93 Respiratory Rate 34 H 22 H Respiratory Effort Respiratory Depth Respiratory Pattern Tachypnea Tachypnea Blood Pressure Blood Pressure Mean Pulse Ox 100 100 Oxygen Delivery Method Oxygen Flow Rate (L/min) Fraction of Inspired Oxygen (FIO2) 40 40 Weight Weight: 189 lb 6.033 oz Body Mass Index (BMI) 31.5 Physical Exam Const alert, oriented x3 and no apparent distress General Appearance: cooperative HEENT normocephalic, head/scalp atraumatic, hearing grossly normal bilaterally, moist oral mucous membranes and oropharynx normal Mouth: oral and palatal mucosa normal Eyes PERRL, EOMs intact bilaterally and conjunctivae normal Neck no lymphadenopathy and supple Resp Resp Narrative: moderately diminished breath sounds bibasally, no wheezes or crackles. On BIPAP. Tachypneic Cardio regular rate, regular rhythm, S1 normal heart sound, S2 normal heart sound and no murmurs GI normal to inspection, nondistended, normoactive bowel sounds, soft to palpation, non-tender and non-distended Extremity normal to inspection, full ROM and no clubbing, cyanosis or edema Neuro oriented x3, CN's II-XII intact bilaterally, moves all extremities and no focal motor deficits Sensorium / Orientation: awake and alert Motor Exam: strength 5/5 throughout Psych affect normal Results Lab / Micro Data 11/18/23 14:55 11/18/23 14:01 Labs: Laboratory Results - last 24 hr 11/18/23 14:01: D-Dimer Quant (PE/DVT) 0.83 H*, Sodium 144, Potassium 4.5, Chloride 110 H, Carbon Dioxide 28.0, Anion Gap 6, BUN 93 H, Creatinine 2.56 H, Estim Creat Clear Calc 21.65, Est GFR (MDRD) Af Amer 31 L, Est GFR (MDRD) Non-Af 26 L, BUN/Creatinine Ratio 36.3 H, Glucose 188 H, Calcium 8.7, Troponin I High Sens 32, B-Natriuretic Peptide 107.6 H 11/18/23 14:55: WBC 7.0, RBC 2.79 L, Hgb 8.5 L, Hct 27.2 L, MCV 97.5 H, MCH 30.5, MCHC 31.3 L, RDW Std Deviation 51.0 H, RDW Coeff of John 14.3, Plt Count 116 L, MPV 11.2, Immature Gran % (Auto) 0.400, Neut % (Auto) 74.6 H, Lymph % (Auto) 14.1 L, [place] % (Auto) 6.0, Eos % (Auto) 4.3, Baso % (Auto) 0.6, Absolute Neuts (auto) 5.3, Absolute Lymphs (auto) 0.99, Nucleated RBC % 0 Micro: Microbiology 11/18/23 14:18 Mucosa - Nose SARS-CoV-2, Influenza & RSV (PCR) - Final ABG Data ABG results: ABG 11/18/23 14:30 Specimen Type DAY[place] Sample Site Not entered O2 % 4.0 VBG pH 7.31 L VBG pO2 50 H VBG HCO3 31 H VBG Total CO2 33 VBG O2 Sat (Calc) 80 H VBG Base Excess 5 H POC Mix VBG pCO2 Pt Tmp 61.5 H O2 Delivery Device Cannula Rhythm Strip Rhythm Strip: Sinus Tach Rate: 105 Ectopy: None Imaging Radiology Impression Chest X-Ray 11/18/23 14:13 IMPRESSION: Decreased mild bilateral pleural effusions and bibasilar opacities. Electronically Signed: Jamila Nichols MD at 15:08 EDT , Assessment & Plan Assessment/Plan (1) Acute and chronic respiratory failure with hypercapnia: (2) Asthma exacerbation in COPD: PLAN: Plan #Acute on chronic hypoxic and hypercapnic respiratory failure likely due to COPD and asthma exacerbation. Less likely due to acute exacerbation of heart failure, as his BNP is only 107.6 admit to PCU patient on BIPAP. will continue, and try to wean off BIPAP to oxygen by nasal canula as tolerated. breathing treatment with bronchodilators IV solumedrol 40mg q8 CXR showed no acute cardiopulmonary pathology get respiratory panel titrate oxygen to maintain sats >90% #Hypertension: on amlodipine and carvedilol. IV hydralazine prn #HFpEF: not in exacerbation. On furosemide. 2D echo from 11.16.2923 showed EF of 55% with stage 1 diastolic dysfunction and no regional wall motion abnormalities noted. #Anemia Hb is ~ 8.5. Baseline hb is ~ 8-9. 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 capsule endoscopy showed no signs of bleeding. #Hypothyroidism: on synthroid #Type 2 diabetes mellitus: on ISS. Accuchecks ACHS. On glimepiride #CAD: has history of nonobstructive CAD. on atorvastatin and metoprolol. Not on antiplatelets due to history of GI bleed. #Chronic thrombocytopenia platelets are 116. This is chronic. etiology is unclear. Will monitor #Carotid stenosis: carotid USG from February 2024 showed severe bilateral carotid artery stenosis. on medical therapy. Follow with vascular surgery on outpatient basis. #CKD III Cr is 2.43. has underlying CKD IIIb. Cr is around baseline. Will monitor. DVT prophylaxis: heparin Code status: DNRCCA no intubation Patient counseled extensively about different types of CODE STATUS including full code, DNR CCA and DNR CCA. Patient elects to be DNRCCA no intubation. Total gyxk-ag-nyhi time 17 minutes. Charges/Coding Visit Charges Inpatient E&M: 68174 Init Hosp L3 Procedures Hospitalists Procedures: 86333 Advncd Care Plan 30 Min
[2023-11-18] MEDS: MethylPREDNISolone 125 MG/2 ML Vial IV (15:37)
[2023-11-18 16:23] LABS: Reflex Troponin-HS? (from REC) Y
[2023-11-18] MEDS: Multivitamin (Healthy Eyes) Capsule 1 CAP PO (17:48)
[2023-11-18] MEDS: Ferrous Sulfate 325 MG Tablet PO (17:48)
[2023-11-18 17:57] LABS: Troponin-I HS 35 pg/mL (3.0-78.0)
[2023-11-18 18:11] LABS: Bedside Glucose 119 mg/dL (74-106)
--- NOTE | 2023-11-18 20:35 | CPS ---
Patient refused PAP therapy for night time use.
[2023-11-18] MEDS: Atorvastatin Calcium 80 MG Tablet PO (21:19)
[2023-11-18] MEDS: Heparin Injection (Vial) 5,000 UNIT/ML VIAL 5000 UNIT SC (21:19)
[2023-11-18] MEDS: Insulin Lispro 100 UNIT/ML INSULN.PEN SC (23:56)
[2023-11-19] VITALS (10 sets, daily range): BP systolic 108–138; BP diastolic 55–92; PULSE 87–96; RESP 16–22; TEMP 36.4–36.6; O2SAT 97–99
[2023-11-19 00:18] LABS: Bedside Glucose 289 mg/dL (74-106)
[2023-11-19] MEDS: Ipratropium/Albuterol Sulfate 3 ML AMPUL.NEB INHALATION ×2 (02:11→19:45)
[2023-11-19] MEDS: Insulin Lispro 100 UNIT/ML INSULN.PEN SC ×3 (05:25→21:40)
[2023-11-19] MEDS: Heparin Injection (Vial) 5,000 UNIT/ML VIAL 5000 UNIT SC (05:26)
[2023-11-19] MEDS: Liothyronine 5 MCG Tablet 25 MCG PO (05:33)
[2023-11-19 06:37] LABS: Bedside Glucose 201 mg/dL (74-106)
[2023-11-19 07:07] LABS: Absolute Lymphocyte Count 0.35 X10^3/uL (0.83-4.51); Absolute Neutrophil Count 3.6 X10^3/uL (2.0-7.7); Hematocrit 26.1 % (40-54); Hemoglobin 8.1 g/dL (13.0-16.5); Lymphocyte # 0.35 X10^3/ul (0.83-4.51); Lymphocyte % 8.9 % (19-41); Mean Corpuscular Hgb 29.7 pg (27.0-32.0); Mean Corpuscular Volume 95.6 fL (80-94); Mean Platelet Vol. 11.5 fl (6.2-12.0); Monocyte# 0.03 X10^3/uL; Monocyte% 0.8 % (0-10); NRBC Flagged by Analyzer 0 % (0-5); Neutrophil # 3.55 X10^3/uL (2.7-7.7); POSITIVE COUNT YES; POSITIVE DIFFERENTIAL YES; Platelet Count 90 K/mm3 (150-450); Red Blood Count 2.73 M/mm3 (4.6-6.2); White Blood Count 3.9 K/mm3 (4.4-11.0)
[2023-11-19 07:18] LABS: Differential Indicated SCAN CRITERIA MET
[2023-11-19 07:27] LABS: Anion Gap 11 (5-15); BUN 91 mg/dL (7-18); BUN/Creat Ratio 42.7 RATIO (10-20); Calcium,Total 9.2 mg/dL (8.5-10.1); Chloride 105 mmol/L (98-107); Creatinine, Serum 2.13 mg/dL (0.70-1.30); EST Glomerular Filtration Rate 32 mL/min (>60); Est Glom Filt Rate - Afr Amer 38 mL/min (>60); Estimated Creatinine Clearance 26.08 ml/min; Glucose 200 mg/dL (74-106); Potassium 4.4 mmol/L (3.5-5.1); Sodium Level 142 mmol/L (136-145)
[2023-11-19 08:10] LABS: Platelet Estimate SLT DEC (ADEQ)
[2023-11-19] MEDS: Metoprolol(XL)Succ 25 MG Tablet PO (09:34)
[2023-11-19] MEDS: Ferrous Sulfate 325 MG Tablet PO ×2 (09:34→16:32)
[2023-11-19] MEDS: Multivitamin (Healthy Eyes) Capsule 1 CAP PO ×2 (09:34→16:32)
[2023-11-19] MEDS: Lisinopril 10 MG Tablet PO (09:34)
[2023-11-19] MEDS: Sucralfate 1 GM Tablet PO ×2 (09:34→16:33)
[2023-11-19] MEDS: Furosemide 20 MG Tablet PO (09:34)
[2023-11-19] MEDS: Aspirin E.C. 81 MG Tablet PO (09:34)
[2023-11-19] MEDS: Empagliflozin 10 MG Tablet PO (09:34)
[2023-11-19] MEDS: Glimepiride 2 MG Tablet PO (09:34)
[2023-11-19] MEDS: Pantoprazole Sodium 40 MG Tablet PO (09:34)
[2023-11-19] MEDS: Cholecalciferol (VIT D3) 25 MCG TABLET (1,000 UNITS) PO (09:34)
[2023-11-19] MEDS: 0.9% Saline Lock 10 ML Syringe IV ×2 (09:52→15:04)
[2023-11-19 12:01] LABS: Bedside Glucose 284 mg/dL (74-106)
--- NOTE | 2023-11-19 13:30 | CASEMGMT ---
ALMA RINALDI chart review: Patient was admitted 11/13-11/16/23 for heart failure exacerbation. See ALMA RINALDI assessment from 11/15/23. Patient was discharged to home with family support, CCN follow-up, and maintaining on home oxygen. Patient returned to [facility] ED on 11/18/23 for increased SOB. Patient venous blood gases that showed hypercapnic respiratory acidosis and was placed on Bipap. Patient was admitted for acute on chronic hypoxia and hypercapnic resp failure likely due to COPD and asthma exacerbation. ALMA RINALDI in to discuss readmission and discharge planning. Patient returned prior to follow-up appts. Patient states he was wearing oxygen as prescribed, following dietary restrictions, and taking medications as prescribed. Patient wishes to discharge home with CCN. Hospitalist in room and anticipate discharge tomorrow. Will monitor for increase of home oxygen. CM will continue to follow this patient and plan for a safe discharge.
[2023-11-19 17:02] LABS: Bedside Glucose 142 mg/dL (74-106)
--- NOTE | 2023-11-19 17:14 | PCM.PN.HOSP ---
Reason for Visit Reason for Visit: Diagnoses Chronic obstructive pulmonary disease with (acute) exacerbation (11/18/23) Unspecified asthma with (acute) exacerbation (11/18/23) Acute and chronic respiratory failure with hypercapnia (11/18/23) Subjective Subjective Patient feeling better today, was up moving around and does have dyspnea on exertion but reports he is closer to baseline, no significant cough Objective Data Objective Data Vital Signs: Vital Signs Temp Pulse Resp BP Pulse Ox O2 Del Method O2 Flow Rate 97.5 F L 87 20 H 108/92 H 98 Nasal Cannula 2 11/19/23 16:28 11/19/23 16:28 11/19/23 16:28 11/19/23 16:28 11/19/23 16:28 11/19/23 16:28 11/19/23 16:28 FiO2 40 11/18/23 15:22 Oxygen Flow Rate (L/min) 2 Oxygen Delivery Method Nasal Cannula Weight: 86.3 kg Body Mass Index (BMI) 31.6 Intake & Output: Intake and Output for Last 24 Hours 11/17/23 11/18/23 11/19/23 23:59 23:59 23:59 Intake Total 1100 / 1100 Output Total 1000 / 1000 Balance 100 / 100 Lab / Micro Data 11/19/23 06:34 11/19/23 06:34 Labs: Laboratory Results - last 24 hr 11/18/23 17:24: Troponin I High Sens 35 11/18/23 17:46: POC Glucose 119 H 11/18/23 23:49: POC Glucose 289 H 11/19/23 05:23: POC Glucose 201 H 11/19/23 06:34: WBC 3.9 L, RBC 2.73 L, Hgb 8.1 L, Hct 26.1 L, MCV 95.6 H, MCH 29.7, MCHC 31.0 L, RDW Std Deviation 49.0 H, RDW Coeff of John 14.0, Plt Count 90 L, MPV 11.5, Immature Gran % (Auto) 0.300, Neut % (Auto) 90.0 H, Lymph % (Auto) 8.9 L, [place] % (Auto) 0.8, Eos % (Auto) 0.0, Baso % (Auto) 0.0, Absolute Neuts (auto) 3.6, Absolute Lymphs (auto) 0.35 L, Nucleated RBC % 0, Platelet Estimate SLT DEC, Sodium 142, Potassium 4.4, Chloride 105, Carbon Dioxide 26.0, Anion Gap 11, BUN 91 H, Creatinine 2.13 H, Estim Creat Clear Calc 26.08, Est GFR (MDRD) Af Amer 38 L, Est GFR (MDRD) Non-Af 32 L, BUN/Creatinine Ratio 42.7 H, Glucose 200 H, Calcium 9.2 11/19/23 11:40: POC Glucose 284 H 11/19/23 16:27: POC Glucose 142 H Micro: Microbiology 11/18/23 17:00 Mucosa - Nose Respiratory Panel (PCR) - Final 11/18/23 14:18 Mucosa - Nose SARS-CoV-2, Influenza & RSV (PCR) - Final Rhythm Strip Rhythm Strip: Sinus Tach Rate: 105 Ectopy: None Physical Exam Narrative General: Alert, oriented HEENT: Atraumatic, normocephalic Eyes: Anicteric, normal conjunctiva, extraocular movements grossly intact Neck: Supple Respiratory: Diminished bilaterally with some increased work of breathing Cardiovascular: Regular rate GI: Soft, nontender, nondistended Extremities: No significant pitting edema Musculoskeletal: Moving all extremities Neuro: No overt focal neurological deficits Skin: No rashes appreciated Psych: Cooperative Assessment & Plan Assessment/Plan (1) Asthma exacerbation in COPD: PLAN: Plan # Increased shortness of breath secondary to acute exacerbation of COPD in setting of chronic hypoxic respiratory failure on 3 L home O2 -Patient recently discharged home after being diuresed for heart failure exacerbation and was home for 2 days on his baseline oxygen however he woke up very short of breath 11/17 and it was felt he had exacerbation of COPD and he was given Solu-Medrol and DuoNebs -Also required BiPAP due to his work of breathing -Today significantly improving, feels closer to baseline -Discussed continuing IV steroids and nebs for another 24 hours and possible DC home tomorrow if patient still improved and on home O2 -Distal get dyspnea on exertion but feels like this is likely back to or at least close to his baseline -Respiratory and COVID panels negative on admission and chest x-ray with improving appearance from previous # GUZMAN on CKD versus CKD unclear baseline -Has had widely variable creatinine, on 11/15 it was 2.14 and on admission 2.56 and has since down trended to 2.13 however has had higher and lower values -Continue to monitor and monitor fluid status # History of chronic heart failure with preserved ejection fraction -Most recent echo with EF of 55% and stage I diastolic dysfunction as well as aortic valve stenosis moderate to severe fairly stable compared to prior echoes -Recently admitted and received IV diuresis and discharged home -Does not appear fluid overloaded at this time -Taking p.o. diuretics # Pancytopenia -Has had vacillation of all 3 cell lines previously, today all 3 cell lines are down -May need further outpatient evaluation if no improvement # Hypertension -Fairly well-controlled -On lisinopril and metoprolol #GERD -Continue PPI #Hypothyroidism -Continue home liothyronine #Type 2 diabetes mellitus -Glucose checks and sliding scale insulin # History of CAD -History of nonobstructive CAD on atorvastatin and metoprolol -Continue aspirin -Follows with cardiology on outpatient basis # Severe carotid stenosis -Carotid ultrasound from February 2024 with severe bilateral carotid artery stenosis -On atorvastatin and aspirin -Need to follow-up on outpatient basis #DVT ppx: Chemoprophylaxis discontinued due to low platelet count, SCDs ordered Jennifer Pardo MD Time spent in the patient's overall evaluation,decision-making process, review of diagnostic data, adjustment of management, discussion with other providers, nursing nursing and ancillary staff involved in patient's care documentation, 39 Minutes Charges/Coding Visit Charges Inpatient E&M: 57732 Subs Hosp L2
[2023-11-19] MEDS: Atorvastatin Calcium 80 MG Tablet PO (21:40)
--- NOTE | 2023-11-19 22:05 | CPS ---
Pt refused BiPAP for tonight.
[2023-11-19 23:00] LABS: Bedside Glucose 262 mg/dL (74-106)
[2023-11-20] VITALS (11 sets, daily range): BP systolic 117–157; BP diastolic 50–81; PULSE 88–106; RESP 16–24; TEMP 36.4–36.6; O2SAT 97–100
[2023-11-20] MEDS: Ipratropium/Albuterol Sulfate 3 ML AMPUL.NEB INHALATION ×3 (01:20→12:39)
[2023-11-20] MEDS: Liothyronine 5 MCG Tablet 25 MCG PO (06:26)
[2023-11-20] MEDS: Insulin Lispro 100 UNIT/ML INSULN.PEN SC ×3 (06:27→16:35)
[2023-11-20 06:59] LABS: Bedside Glucose 194 mg/dL (74-106)
[2023-11-20 07:02] LABS: Absolute Lymphocyte Count 0.66 X10^3/uL (0.83-4.51); Absolute Neutrophil Count 9.9 X10^3/uL (2.0-7.7); Hematocrit 24.8 % (40-54); Hemoglobin 8.1 g/dL (13.0-16.5); Lymphocyte # 0.66 X10^3/ul (0.83-4.51); Lymphocyte % 6.1 % (19-41); Mean Corp Hgb Conc 32.7 g/dL (32-36); Mean Corpuscular Hgb 31.2 pg (27.0-32.0); Mean Corpuscular Volume 95.4 fL (80-94); Monocyte# 0.27 X10^3/uL; Monocyte% 2.5 % (0-10); NRBC Flagged by Analyzer 0 % (0-5); Neutrophil # 9.85 X10^3/uL (2.7-7.7); Neutrophil % 90.7 % (47-70); Platelet Count 107 K/mm3 (150-450); RBC Distribution Width CV 14.8 % (11.6-14.6); RBC Distribution Width SD 51.3 fl (35.1-43.9); White Blood Count 10.9 K/mm3 (4.4-11.0)
[2023-11-20 07:46] LABS: Anion Gap 7 (5-15); BUN 105 mg/dL (7-18); BUN/Creat Ratio 50.2 RATIO (10-20); Calcium,Total 9.6 mg/dL (8.5-10.1); Chloride 107 mmol/L (98-107); Creatinine, Serum 2.09 mg/dL (0.70-1.30); EST Glomerular Filtration Rate 32 mL/min (>60); Est Glom Filt Rate - Afr Amer 39 mL/min (>60); Estimated Creatinine Clearance 26.58 ml/min; Glucose 212 mg/dL (74-106); Potassium 4.7 mmol/L (3.5-5.1); Sodium Level 140 mmol/L (136-145)
[2023-11-20] MEDS: Pantoprazole Sodium 40 MG Tablet PO (08:42)
[2023-11-20] MEDS: Lisinopril 10 MG Tablet PO (08:42)
[2023-11-20] MEDS: Empagliflozin 10 MG Tablet PO (08:42)
[2023-11-20] MEDS: Metoprolol(XL)Succ 25 MG Tablet PO (08:42)
[2023-11-20] MEDS: Furosemide 20 MG Tablet PO (08:42)
[2023-11-20] MEDS: Multivitamin (Healthy Eyes) Capsule 1 CAP PO (08:42)
[2023-11-20] MEDS: Cholecalciferol (VIT D3) 25 MCG TABLET (1,000 UNITS) PO (08:42)
[2023-11-20] MEDS: Aspirin E.C. 81 MG Tablet PO (08:43)
[2023-11-20] MEDS: Glimepiride 2 MG Tablet PO (08:43)
[2023-11-20 08:45] LABS: AST(SGOT) 9 U/L (15-37); Alanine Aminotransfer ALT/SGPT 17 U/L (16-61); Albumin, Serum 3.3 g/dL (3.2-5.0); Alkaline Phosphatase 71 U/L (45-117); Protein, Total 6.3 g/dL (6.4-8.2)
[2023-11-20] MEDS: 0.9% Saline Lock 10 ML Syringe IV ×3 (09:00→15:18)
--- NOTE | 2023-11-20 10:15 | RAD_ITS ---
STUDY: X-RAY CHEST REASON FOR EXAM: Male, 83 years old. Shortness of breath and cough TECHNIQUE: Single AP portable view of the chest. COMPARISON: 10/18/2023 FINDINGS: EKG leads overlie the chest The lungs are clear and expanded. There is no demonstrated pleural abnormality. Normal size heart. Normal mediastinum and purnima. Normal visualized pulmonary arteries. There is atherosclerotic calcification of the aortic arch with tortuosity. There are diffuse degenerative changes of the visualized thoracic spine. Normal visualized ribs, clavicles, and shoulders. There is no demonstrated abnormality of the visualized soft tissue structures of the upper abdomen. RAD/Chest 1 View (Portable) IMPRESSION: No acute pulmonary process Electronically Signed: Jonathan Mcdaniel MD at 10:49 EDT ,
[2023-11-20] MEDS: Albuterol 2.5 MG/3 ML VIAL.NEB. INHALATION (10:25)
[2023-11-20 11:07] LABS: BNP,B-Type NATRIURETIC PEPTIDE 186.8 pg/mL (0-100)
--- NOTE | 2023-11-20 11:24 | CON.PCM.RE_ITS ---
Assessment & Plan Assessment/Plan (1) Acute exacerbation of chronic heart failure: (2) Chronic kidney disease, stage 3b: PLAN: Urine analysis with 1+ protein. Sent for quantification. Baseline creatinine around 2.0 with some fluctuations. Current creatinine values are close to baseline. He says he had some lower extremity edema on presentation which is now better with IV Lasix. BNP is on the lower side between 200-300. This is somewhat lower for somebody in decompensated heart failure. Echocardiogram with ejection fraction of 55%. I wonder if most of the shortness of breath is COPD exacerbation rather than fluid overload. However since he had lower extremity edema, I will increase the diuretics. Discussed with hospitalist. At home he is on torsemide 10 mg orally once a day which is probably not enough for his GFR. I would send him home on 40 mg once a day for now. Prior CT chest with mostly emphysema no evidence of interstitial lung disease. Most likely most of his respiratory symptoms are COPD related. Will do challenge with higher dose of torsemide for few days. He is agreeable to follow-up in the office, we will arrange follow-up in the office in about 2 to 3 weeks. Anemia. He was told by his primary care physician to see a staff software engineer. Hemoglobin is around 8-8.5, stable. Remote history of GI bleed, currently does not have any obvious GI source of bleeding. Hemoglobin is relatively stable. Disproportionately high BUN is likely related to heart failure, diuresis, recent steroid use. So far no evidence of GI bleed. HPI Consult Data Date of Consult: 11/20/23 HPI Narrative Reason for Consultation: CKD stage IIIb congestive heart failure HPI Narrative: BEULAH BRGIHT, is a 83 M who presents to the hospital with congestive heart failure. Nephrology on consultation in view of CKD stage IIIb. He says he sees a motor assembler in [place]. Denies any urinary complaints. Some lower extremity edema which is now better. Also being treated for COPD exacerbation. [facility] Medical History Loss of hearing No natural teeth Wears glasses Poor historian Thyroid disease Low iron High cholesterol Syncope History of GI bleed Shortness of breath on exertion History of echocardiogram Cardiology follow-up encounter Symptomatic anemia Diabetes Kidney disease Former smoker On home oxygen therapy TIA (transient ischemic attack) Myocardial infarct Hypertension Diastolic CHF Acute and chronic respiratory failure with hypoxia History of CAD (coronary artery disease) Nonrheumatic aortic (valve) stenosis Mild left ventricular hypertrophy History of left heart catheterization (LHC) (~03/15/22) Atherosclerotic heart disease of [place] coronary artery without angina pectoris Aortic valve stenosis, acquired CAD (coronary artery disease) COPD (chronic obstructive pulmonary disease) Polyarthralgia Diabetes mellitus, type 2 Former tobacco use Obesity Hypothyroidism HLD (hyperlipidemia) HTN (hypertension) Chronic respiratory failure with hypoxia Home Medications ?Medication ?Instructions ?Recorded ?Last Taken ?Type atorvastatin 80 mg tablet 80 mg PO DAILY CHOLESTEROL 05/02/21 11/17/23 History cholecalciferol (vitamin D3) 25 25 mcg PO DAILY vitamin 05/02/21 11/18/23 History mcg (1,000 unit) capsule ipratropium 0.5 mg-albuterol 3 mg 3 ml inhalation 4X/DAY PRN sob 05/02/21 11/18/23 History (2.5 mg base)/3 mL nebulization soln liothyronine 25 mcg tablet 25 mcg PO DAILY THYROID 05/02/21 11/18/23 History omega-3 fatty acids-vitamin E 2 cap PO BID SUPPLEMENT 05/02/21 11/18/23 History 1,000 mg capsule tiotropium bromide 18 mcg capsule 18 mcg inhalation DAILY SOB 05/02/21 11/17/23 History with inhalation device (Spiriva with HandiHaler) vitamins A,C,H-ccww-mactdv 4,296 1 cap PO BID vitamin 12/13/21 11/18/23 History mcg-226 mg-90 mg capsule (PreserVision AREDS) glimepiride 2 mg tablet 2 mg PO DAILY DM #3 tabs 03/09/23 11/18/23 Rx empagliflozin 10 mg tablet 10 mg PO DAILY 30 days #30 tabs 04/26/23 11/18/23 Rx (Jardiance) lisinopril 10 mg tablet 10 mg PO DAILY 06/27/23 11/18/23 History metoprolol succinate 25 mg 25 mg PO DAILY 06/27/23 11/18/23 History tablet,extended release 24 hr pantoprazole 40 mg tablet,delayed 40 mg PO DAILY 06/27/23 11/18/23 History release (Protonix) sucralfate 1 gram tablet 1 g PO BID stomach 06/27/23 11/18/23 History torsemide 10 mg tablet 10 mg PO DAILY 06/27/23 11/18/23 History ferrous sulfate 325 mg (65 mg 325 mg PO BID 11/14/23 11/18/23 History iron) tablet (FeroSul) aspirin 81 mg tablet,delayed 81 mg PO DAILY 11/18/23 11/18/23 History release (Adult Aspirin Regimen) Allergy/AdvReac Type Severity Reaction Status Date / Time aliskiren (From [place]) Allergy Intermediate Other Verified 11/18/23 13:52 valsartan (From [place]) Allergy Intermediate Other Verified 11/18/23 13:52 codeine AdvReac Upset Verified 11/18/23 13:52 Stomach Family History Mother CVA (cerebral vascular accident) Heart disease Myocardial infarction Hx of CABG Hypertension Father CVA (cerebral vascular accident) Heart disease Surgical History S/P cataract extraction Social History household members: none housing: house Smoking Status: Former smoker how long ago did patient quit smoking: Quit 2010, prior 1 ppd since teen. alcohol intake: former year quit: 2010 substance use type: does not use ROS ROS Narrative Negative except above Physical Exam Narrative Alert awake oriented x 3 no obvious distress no pallor no icterus no JVD s1s2 no murmurs lungs clear abdomen soft no organomegaly no edema no cyanosis Lab / Micro Data 11/20/23 06:13 11/20/23 06:13 Labs: Laboratory Results - last 24 hr 11/19/23 11:40: POC Glucose 284 H 11/19/23 16:27: POC Glucose 142 H 11/19/23 21:39: POC Glucose 262 H 11/20/23 06:13: WBC 10.9, RBC 2.60 L, Hgb 8.1 L, Hct 24.8 L, MCV 95.4 H, MCH 31.2, MCHC 32.7 D, RDW Std Deviation 51.3 H, RDW Coeff of John 14.8 H, Plt Count 107 L, MPV 11.0, Immature Gran % (Auto) 0.700, Neut % (Auto) 90.7 H, Lymph % (Auto) 6.1 L, [place] % (Auto) 2.5, Eos % (Auto) 0.0, Baso % (Auto) 0.0, Absolute Neuts (auto) 9.9 H, Absolute Lymphs (auto) 0.66 L, Nucleated RBC % 0, Sodium 140, Potassium 4.7, Chloride 107, Carbon Dioxide 26.0, Anion Gap 7, BUN 105 H*, Creatinine 2.09 H, Estim Creat Clear Calc 26.58, Est GFR (MDRD) Af Amer 39 L, E st GFR (MDRD) Non-Af 32 L, BUN/Creatinine Ratio 50.2 H, Glucose 212 H, Calcium 9.6, Total Bilirubin 0.40, Direct Bilirubin 0.10, AST 9 L, ALT 17, Alkaline Phosphatase 71, B-Natriuretic Peptide 186.8 H, Total Protein 6.3 L, Albumin 3.3, Globulin 3.0 11/20/23 06:23: POC Glucose 194 H Rhythm Strip Rhythm Strip: Sinus Tach Rate: 105 Ectopy: None Imaging Radiology Impression Chest X-Ray 11/20/23 10:15 IMPRESSION: No acute pulmonary process Electronically Signed: Jonathan Mcdaniel MD at 10:49 EDT ,
[2023-11-20] MEDS: Ferrous Sulfate 325 MG Tablet PO (11:27)
[2023-11-20] MEDS: Furosemide 20 MG/2 ML VIAL 10 MG IV (12:00)
[2023-11-20 12:11] LABS: Bedside Glucose 285 mg/dL (74-106)
[2023-11-20 13:54] LABS: Blood Gas Specimen Type VEN; O2 Delivery Device Cannula; SITE Not entered; VBG BASE EXCESS -3 mmol/L (-1.0-3.5); VBG Bicarbonate 23 mmol/L (22-26); VBG PO2 55 mmHg (25-40); VBG SO2 86 % (50-70); VBG TCO2 24 mmol/L (23-33); VBG pCO2 42.2 mmHg (41-51); VBG pH 7.34 (7.32-7.42)
[2023-11-20 14:08] LABS: Protein, Urine (Random) 35.3 mg/dL (<11.9); Protein:Creat Ratio 683 mg/g CRE (0-200)
--- NOTE | 2023-11-20 16:18 | CASEMGMT ---
Patient has order for discharge. RN CM notified CCN of discharge. RN CM in to discuss needs at discharge. Patient has portable oxygen in room for at discharge. Patient denies needs at discharge. RN CM updated patient that CCN has been notified of discharge. Patient had no further questions or concerns.
--- NOTE | 2023-11-20 16:28 | DCINST_ITS ---
Discharge Instructions Diet Discharge Diet: - (-DASH diet, 3000 mg sodium restriction, 2 L fluid restriction) Activity Discharge Activity: - (Increase activity as tolerated) Follow Up Care Test Results: Test results from this visit will be discussed in further detail at your follow- up appointment, if applicable. Discharge Plan Admission Admit Date/Time: 11/18/23 15:46 Primary Reason for Your Visit: Increased shortness of breath Attending Provider: Jennifer Pardo Primary Care Provider: Emeka Hernandez Consulting Providers: Sarai Alcantara; Anderson Hammond Instructions Patient Instructions: Journaling for Emotional Wellness, Your Body's Response to Anxiety, ED Anxiety Reaction, ED Panic Attack Additional Instructions / Restrictions: DISCHARGE INSTRUCTIONS PLEASE READ *Please take this with you to your next doctors appointment* -You will be discharged on 5 days of prednisone for your COPD, please continue your inhalers -Please follow-up with nephrology upon discharge in 2 to 3 weeks. Please call their office to schedule hospital follow-up appointment upon discharge. - Your torsemide will be increased to 40 mg daily -Would recommend lab work (BMP) to check your kidney function and potassium in 2 to 3 days through your primary care physician's office. Please call their office upon discharge to obtain order for lab work. -Weigh yourself every day. A sudden weight gain can mean you are retaining fluid. Weigh yourself at the same time of day and in the same kind of clothes. Ideally, weigh yourself first thing in the morning after you empty your bladder, but before you eat breakfast. -Please call your physician if your weight goes up by more than 2 pounds in 1 day or 5 pounds in 1 week. This can be a sign that you are retaining more fluid than you should be. Clues to weight gain include checking your ankles for swelling, or noticing you are short of breath when you lie down -Please limit your sodium intake to less than 3 g/day. Here are tips: Limit canned, dried, packaged, and fast foods. Don't add salt to your food at the table. Season foods with herbs instead of salt when you cook. When you eat out, ask that the drum stock clerk not add any salt to your dish. Don't eat fried or greasy foods. Be careful of bottled beverages. They can contain a lot of salt -Call 911 right away if you have: -Severe shortness of breath, such that you can't catch your breath even while resting -Severe chest pain that does not resolve with rest or nitroglycerin -[place], foamy mucus with cough and shortness of breath -An ongoing rapid or irregular heartbeat -Passing out or fainting -Stroke symptoms such as sudden numbness or weakness on one side of your face, arm, or leg or sudden confusion, trouble speaking or vision changes -Please call your primary care provider's office upon discharge to schedule a hospital follow up within 1 week. -For any concerning signs or symptoms please call 911 or proceed to the nearest emergency department Discharge Orders/Prescriptions Prescriptions: New prednisone 20 mg tablet 40 mg PO DAILY 5 Days Qty: 10 0RF Continued atorvastatin 80 mg tablet 80 mg PO DAILY ipratropium-albuterol 0.5 mg-3 mg(2.5 mg base)/3 mL solution for nebulization 3 ml inhalation 4X/DAY PRN (Reason: sob) Patient Comments: inhale contents of 1 vial ( 3 milliliters ) in nebulizer by mouth... (REFER TO PRESCRIPTION NOTES). liothyronine 25 mcg tablet 25 mcg PO DAILY Patient Comments: TAKE 1 TABLET BY MOUTH ONCE DAILY FOR 90 DAYS tiotropium bromide [Spiriva with HandiHaler] 18 mcg capsule, w/inhalation device 18 mcg INHALATION DAILY Patient Comments: INHALE THE CONTENTS OF 1 CAPSULE TWICE EACH TIME VIA HANDIHALER ONCE DAILY cholecalciferol (vitamin D3) 25 mcg (1,000 unit) Capsule 25 mcg PO DAILY omega-3 fatty acids-vitamin E 1,000 mg Capsule 2 cap PO BID PreserVision AREDS [id number] Capsule 1 cap PO BID Jardiance 10 mg Tablet 10 mg PO DAILY 30 Days Qty: 30 0RF glimepiride 2 mg tablet 2 mg PO DAILY Qty: 3 0RF Patient Comments: take 1 tablet by mouth once daily WITH FIRST MEAL OF THE DAY Rx Instructions: Hold if glucose less than 130 mg/dl lisinopril 10 mg tablet 10 mg PO DAILY sucralfate 1 gram tablet 1 g PO BID Patient Comments: pe rpt no longer taking pantoprazole [Protonix] 40 mg tablet,delayed release (DR/EC) 40 mg PO DAILY metoprolol succinate 25 mg tablet extended release 24 hr 25 mg PO DAILY ferrous sulfate [FeroSul] 325 mg (65 mg iron) tablet 325 mg PO BID aspirin [Adult Aspirin Regimen] 81 mg tablet,delayed release (DR/EC) 81 mg PO DAILY Changed torsemide 10 mg tablet 40 mg PO DAILY 30 Days Qty: 120 0RF Referrals / Follow Up: Anderson Hammond MD [Med Staff - Consulting] - Within 2 Weeks Emeka Hernandez MD [Primary Care Provider] - Within 1 Week Disposition Disposition (needs filled in before D/C Order can be placed): Home, Self Care
--- NOTE | 2023-11-20 16:37 | PCM.DC.SUM ---
Providers Date of Admission: 11/18/23 Date of Discharge: 11/20/23 Primary Care Physician: Dr. Emeka Hernandez MD Consultations 11/20/23 07:59 Consult: Nephrology Routine Consulting Provider: Anderson Hammond Reason for Consult: critical/rising BUN despite improving Cr EMERGENT Consult: No MD Notified: Yes Date Notified: 11/20/23 Time Notified: 08:52 Method of Notification: Answering Service Reason For Visit: increased SOB 2/2 COPD exacerbation Diagnosis Discharge Diagnosis (1) Chronic kidney disease, stage 3b: Status: Acute Code(s): N18.32 - Chronic kidney disease, stage 3b (2) Acute exacerbation of chronic obstructive pulmonary disease (COPD): Status: Inactive Code(s): J44.1 - Chronic obstructive pulmonary disease with (acute) exacerbation Plan # Increased shortness of breath secondary to acute exacerbation of COPD in setting of chronic hypoxic respiratory failure on 3 L home O2 # GUZMAN on CKD versus CKD unclear baseline # History of chronic heart failure with preserved ejection fraction # Hypertension #GERD #Hypothyroidism #Type 2 diabetes mellitus # History of CAD # Severe carotid stenosis Medications at Discharge Home Medications atorvastatin 80 mg tablet 80 mg PO DAILY CHOLESTEROL 05/02/21 cholecalciferol (vitamin D3) 25 mcg (1,000 unit) capsule 25 mcg PO DAILY vitamin 05/02/21 ipratropium 0.5 mg-albuterol 3 mg (2.5 mg base)/3 mL nebulization soln 3 ml inhalation 4X/DAY PRN sob 05/02/21 liothyronine 25 mcg tablet 25 mcg PO DAILY THYROID 05/02/21 omega-3 fatty acids-vitamin E 1,000 mg capsule 2 cap PO BID SUPPLEMENT 05/02/21 tiotropium bromide 18 mcg capsule with inhalation device (Spiriva with HandiHaler) 18 mcg inhalation DAILY SOB 05/02/21 vitamins A,C,D-dzai-qeamrj 4,296 mcg-226 mg-90 mg capsule (PreserVision AREDS) 1 cap PO BID vitamin 12/13/21 glimepiride 2 mg tablet 2 mg PO DAILY DM #3 tabs 03/09/23 empagliflozin 10 mg tablet (Jardiance) 10 mg PO DAILY 30 days #30 tabs 04/26/23 lisinopril 10 mg tablet 10 mg PO DAILY 06/27/23 metoprolol succinate 25 mg tablet,extended release 24 hr 25 mg PO DAILY 06/27/23 pantoprazole 40 mg tablet,delayed release (Protonix) 40 mg PO DAILY 06/27/23 sucralfate 1 gram tablet 1 g PO BID stomach 06/27/23 ferrous sulfate 325 mg (65 mg iron) tablet (FeroSul) 325 mg PO BID 11/14/23 aspirin 81 mg tablet,delayed release (Adult Aspirin Regimen) 81 mg PO DAILY 11/18/23 prednisone 20 mg tablet 40 mg (2 x 20 mg) PO DAILY 5 days #10 tabs 11/20/23 torsemide 10 mg tablet 40 mg (4 x 10 mg) PO DAILY 30 days #120 tabs 11/20/23 Hospital Course Summary of Care Provided Minutes Spent on Discharge: 38 Hospital Course: 83-year-old male history of heart failure with preserved ejection fraction, CKD unclear subtype, hypertension, GERD, hypothyroidism, diabetes, CAD, COPD on 3 L home O2 who presented to [facility] ED 11/18/2023 with increased shortness of breath. He had been hospitalized from 11/13 through 11/15 due to CHF exacerbation and was diuresed and discharged home after being weaned to his baseline oxygen of 3 L. He Re-presented endorsing increased shortness of breath from baseline but while he had increased work of breathing and tachypnea it was not documented that he was never hypoxic and his CO2 on VBG was within normal limits so while he did indeed have respiratory distress BiPAP was placed for work of breathing. Patient was continued on home diuretics and started on IV steroids and continued on nebs and patient by the following morning felt he was back to baseline and was feeling much better, discussed with his high risk of decompensation an additional day of IV steroids was reasonable and patient was agreeable. On 11/19 patient was feeling well in the morning back to his baseline O2 and felt he was at his baseline breathing. Patient then became anxious and said he felt like he was filling up with fluid however physical exam remained unchanged, chest x-ray without any new or acute process and patient never desaturated. Patient returned to baseline without any intervention. When discussing with patient further at length he reports he gets anxious and agitated and will feel very short of breath and thinks that is what happened given the quick onset and complete resolution independent of any medical intervention with no change in oxygen saturation or physical exam. Discussed keeping patient another day to monitor for any further episodes that was suspected this was due to anxiety and patient adamantly against that and wanted to go home. Patient became very agitated at the thought of leaving and became tachypneic again and short of breath without any change in O2 sat. When discussing that we could reevaluate in the afternoon patient calmed down and breathing returned to baseline. Did get nephrology involved due to elevated BUN and creatinine and need for diuresis, it was recommended given his GFR that he be on torsemide 40 as an outpatient and that he could follow in the office. Discussed dispo with patient at length and option of staying versus discharge patient adamant on discharge. Do suspect that his episode of shortness of breath was sudden onset in conjunction with anxiety and complete improvement back to baseline with no desaturations and no changes in medical management may be due to anxiety and agitation. Query if there could be a component of anxiety that brought him in to this hospitalization as well given no hypoxia or hypercapnia and only increased work of breathing necessitating BiPAP. Feel it is reasonable to have 5-day prednisone burst to finish treating for a COPD exacerbation given concerns on admission and patient's poor respiratory reserve and also increased torsemide. Patient evaluated shortly before discharge and reports that he feels he is back to baseline and understands the warning signs and symptoms and potential for decompensation. Given patient is completely stable at this time do not feel there is a need for continued inpatient hospitalization especially given patient's comfort level and alternative explanation for his increased shortness of breath earlier (i.e. anxiety). Given his problems with breathing and the fact that he is being discharged will defer to PCP to discuss any management of anxiety with either medication or counseling or other interventions moving forward. Discussed discharge instructions with patient at length as well, no further questions. Discharge instructions as follows: -You will be discharged on 5 days of prednisone for your COPD, please continue your inhalers -Please follow-up with nephrology upon discharge in 2 to 3 weeks. Please call their office to schedule hospital follow-up appointment upon discharge. - Your torsemide will be increased to 40 mg daily -Would recommend lab work ([facility]) to check your kidney function and potassium in 2 to 3 days through your primary care physician's office. Please call their office upon discharge to obtain order for lab work. -Weigh yourself every day. A sudden weight gain can mean you are retaining fluid. Weigh yourself at the same time of day and in the same kind of clothes. Ideally, weigh yourself first thing in the morning after you empty your bladder, but before you eat breakfast. -Please call your physician if your weight goes up by more than 2 pounds in 1 day or 5 pounds in 1 week. This can be a sign that you are retaining more fluid than you should be. Clues to weight gain include checking your ankles for swelling, or noticing you are short of breath when you lie down -Please limit your sodium intake to less than 3 g/day. Here are tips: Limit canned, dried, packaged, and fast foods. Don't add salt to your food at the table. Season foods with herbs instead of salt when you cook. When you eat out, ask that the cooler tender not add any salt to your dish. Don't eat fried or greasy foods. Be careful of bottled beverages. They can contain a lot of salt -Call 911 right away if you have: -Severe shortness of breath, such that you can't catch your breath even while resting -Severe chest pain that does not resolve with rest or nitroglycerin -[place], foamy mucus with cough and shortness of breath -An ongoing rapid or irregular heartbeat -Passing out or fainting -Stroke symptoms such as sudden numbness or weakness on one side of your face, arm, or leg or sudden confusion, trouble speaking or vision changes -Please call your primary care provider's office upon discharge to schedule a hospital follow up within 1 week. -For any concerning signs or symptoms please call 911 or proceed to the nearest emergency department Physical Exam Narrative General: Alert, oriented HEENT: Atraumatic, normocephalic Eyes: Anicteric, normal conjunctiva, extraocular movements grossly intact Neck: Supple Respiratory: Some crackles at the bases, increased work of breathing when patient gets anxious and upset when told may be he would need to stay another day but improved significantly and patient reassured and calms down with no changes in saturation Cardiovascular: Regular rate GI: Soft, nontender, nondistended Extremities: Trace lower extremity edema Musculoskeletal: Moving all extremities Neuro: No overt focal neurological deficits Skin: No rashes appreciated Psych: Cooperative but intermittently will be anxious and agitated when discussing medical history and discharge Weight / BMI Weight Weight: 86.3 kg Body Mass Index (BMI) 31.6 ABG / Lab / Microbiology Data 11/20/23 06:13 11/20/23 06:13 Laboratory: Laboratory Results - last 24 hr 11/19/23 16:27: POC Glucose 142 H 11/19/23 21:39: POC Glucose 262 H 11/20/23 06:13: WBC 10.9, RBC 2.60 L, Hgb 8.1 L, Hct 24.8 L, MCV 95.4 H, MCH 31.2, MCHC 32.7 D, RDW Std Deviation 51.3 H, RDW Coeff of John 14.8 H, Plt Count 107 L, MPV 11.0, Immature Gran % (Auto) 0.700, Neut % (Auto) 90.7 H, Lymph % (Auto) 6.1 L, Grainger % (Auto) 2.5, Eos % (Auto) 0.0, Baso % (Auto) 0.0, Absolute Neuts (auto) 9.9 H, Absolute Lymphs (auto) 0.66 L, Nucleated RBC % 0, Sodium 140, Potassium 4.7, Chloride 107, Carbon Dioxide 26.0, Anion Gap 7, BUN 105 H*, Creatinine 2.09 H, Estim Creat Clear Calc 26.58, Est GFR (MDRD) Af Amer 39 L, Est GFR (MDRD) Non-Af 32 L, BUN/Creatinine Ratio 50.2 H, Glucose 212 H, Calcium 9.6, Total Bilirubin 0.40, Direct Bilirubin 0.10, AST 9 L, ALT 17, Alkaline Phosphatase 71, B-Natriuretic Peptide 186.8 H, Total Protein 6.3 L, Albumin 3.3, Globulin 3.0 11/20/23 06:23: POC Glucose 194 H 11/20/23 11:25: POC Glucose 285 H 11/20/23 11:34: U Random Total Protein 35.3 H, Urine Creatinine 51.70, Protein/Creatinin Ratio 683 H Microbiology: Microbiology 11/18/23 17:00 Mucosa - Nose Respiratory Panel (PCR) - Final 11/18/23 14:18 Mucosa - Nose SARS-CoV-2, Influenza & RSV (PCR) - Final ABG: ABG 11/20/23 13:51 Specimen Type DAYANA Sample Site Not entered O2 % 3.0 VBG pH 7.34 VBG pO2 55 H VBG HCO3 23 VBG Total CO2 24 VBG O2 Sat (Calc) 86 H VBG Base Excess -3 L POC Mix VBG pCO2 Pt Tmp 42.2 O2 Delivery Device Cannula Radiography Diagnostic Testing: Radiology Impression Chest X-Ray 11/20/23 10:15 IMPRESSION: No acute pulmonary process Electronically Signed: Jonathan Mcdaniel MD at 10:49 EDT Reading Location ID and State: [facility] / [place] , Service support , D/C Instructions Discharge Diet: - (-DASH diet, 3000 mg sodium restriction, 2 L fluid restriction) Meaningful Use Info Meaningful Use Meaningful Use Diagnoses (Choose all that apply): None applicable Ischemic Stroke Statin Dosing Therapy Reference: STATIN DOSE THERAPY REFERENCE: * Patients > 75 years receive moderate or high dose statin therapy. * Patients 75 years or YOUNGER should receive HIGH intensity statin dose unless contraindicated. You will be required to document reason for non-treatment if statin daily dose does not meet guidelines. HIGH DOSE STATIN THERAPY DAILY Atorvastatin > than or = to 40 mg Rosuvastatin > than or = to 20 mg Amlodipine + Atorvastatin > than or = to 2.5/40 mg Ezetimibe + Simvastatin 10/80 mg Simvastatin 80mg Discharge Plan Admission Admit Date/Time: 11/18/23 15:46 Primary Reason for Your Visit: Increased shortness of breath Attending Provider: Jennifer Pardo Primary Care Provider: Emeka Hernandez Consulting Providers: Sarai Alcantara; Anderson Hammond Instructions Patient Instructions: Journaling for Emotional Wellness, Your Body's Response to Anxiety, ED Anxiety Reaction, ED Panic Attack Additional Instructions / Restrictions: DISCHARGE INSTRUCTIONS PLEASE READ *Please take this with you to your next doctors appointment* -You will be discharged on 5 days of prednisone for your COPD, please continue your inhalers -Please follow-up with nephrology upon discharge in 2 to 3 weeks. Please call their office to schedule hospital follow-up appointment upon discharge. - Your torsemide will be increased to 40 mg daily -Would recommend lab work (BMP) to check your kidney function and potassium in 2 to 3 days through your primary care physician's office. Please call their office upon discharge to obtain order for lab work. -Weigh yourself every day. A sudden weight gain can mean you are retaining fluid. Weigh yourself at the same time of day and in the same kind of clothes. Ideally, weigh yourself first thing in the morning after you empty your bladder, but before you eat breakfast. -Please call your physician if your weight goes up by more than 2 pounds in 1 day or 5 pounds in 1 week. This can be a sign that you are retaining more fluid than you should be. Clues to weight gain include checking your ankles for swelling, or noticing you are short of breath when you lie down -Please limit your sodium intake to less than 3 g/day. Here are tips: Limit canned, dried, packaged, and fast foods. Don't add salt to your food at the table. Season foods with herbs instead of salt when you cook. When you eat out, ask that the cooler tender not add any salt to your dish. Don't eat fried or greasy foods. Be careful of bottled beverages. They can contain a lot of salt -Call 911 right away if you have: -Severe shortness of breath, such that you can't catch your breath even while resting -Severe chest pain that does not resolve with rest or nitroglycerin -[place], foamy mucus with cough and shortness of breath -An ongoing rapid or irregular heartbeat -Passing out or fainting -Stroke symptoms such as sudden numbness or weakness on one side of your face, arm, or leg or sudden confusion, trouble speaking or vision changes -Please call your primary care provider's office upon discharge to schedule a hospital follow up within 1 week. -For any concerning signs or symptoms please call 911 or proceed to the nearest emergency department Discharge Orders/Prescriptions Prescriptions: New prednisone 20 mg tablet 40 mg PO DAILY 5 Days Qty: 10 0RF Continued atorvastatin 80 mg tablet 80 mg PO DAILY ipratropium-albuterol 0.5 mg-3 mg(2.5 mg base)/3 mL solution for nebulization 3 ml inhalation 4X/DAY PRN (Reason: sob) Patient Comments: inhale contents of 1 vial ( 3 milliliters ) in nebulizer by mouth... (REFER TO PRESCRIPTION NOTES). liothyronine 25 mcg tablet 25 mcg PO DAILY Patient Comments: TAKE 1 TABLET BY MOUTH ONCE DAILY FOR 90 DAYS tiotropium bromide [Spiriva with HandiHaler] 18 mcg capsule, w/inhalation device 18 mcg INHALATION DAILY Patient Comments: INHALE THE CONTENTS OF 1 CAPSULE TWICE EACH TIME VIA HANDIHALER ONCE DAILY cholecalciferol (vitamin D3) 25 mcg (1,000 unit) Capsule 25 mcg PO DAILY omega-3 fatty acids-vitamin E 1,000 mg Capsule 2 cap PO BID PreserVision AREDS [id number] Capsule 1 cap PO BID Jardiance 10 mg Tablet 10 mg PO DAILY 30 Days Qty: 30 0RF glimepiride 2 mg tablet 2 mg PO DAILY Qty: 3 0RF Patient Comments: take 1 tablet by mouth once daily WITH FIRST MEAL OF THE DAY Rx Instructions: Hold if glucose less than 130 mg/dl lisinopril 10 mg tablet 10 mg PO DAILY sucralfate 1 gram tablet 1 g PO BID Patient Comments: pe rpt no longer taking pantoprazole [Protonix] 40 mg tablet,delayed release (DR/EC) 40 mg PO DAILY metoprolol succinate 25 mg tablet extended release 24 hr 25 mg PO DAILY ferrous sulfate [FeroSul] 325 mg (65 mg iron) tablet 325 mg PO BID aspirin [Adult Aspirin Regimen] 81 mg tablet,delayed release (DR/EC) 81 mg PO DAILY Changed torsemide 10 mg tablet 40 mg PO DAILY 30 Days Qty: 120 0RF Referrals / Follow Up: Anderson Hammond MD [Med Staff - Consulting] - Within 2 Weeks Emeka Hernandez MD [Primary Care Provider] - Within 1 Week Disposition Disposition (needs filled in before D/C Order can be placed): Home, Self Care Charges/Coding Visit Charges Inpatient E&M: 17030 Disch Hosp >30min
[2023-11-20 16:59] LABS: Bedside Glucose 295 mg/dL (74-106)
== END 2023-11-20 17:23 | disposition home or self-care (01) | DRG 191 ==
LOC: ED 15:40 → PCU 15:59
PROVIDERS: Internal Medicine Nephrology; Admitting Provider Student in an Organized Health Care Education/Training Program; Emergency Provider Emergency Medicine; PCP Family Medicine; Visit Provider Internal Medicine
DX: J44.1 Chronic obstructive pulmonary disease with (acute) exacerbation (principal); D61.818 Other pancytopenia; I13.0 Hypertensive heart and chronic kidney disease with heart failure and stage 1 through stage 4 chronic kidney disease, or unspecified chronic kidney disease; J45.901 Unspecified asthma with (acute) exacerbation; N17.9 Acute kidney failure, unspecified; I50.32 Chronic diastolic (congestive) heart failure; D69.6 Thrombocytopenia, unspecified; K21.9 Gastro-esophageal reflux disease without esophagitis; E11.22 Type 2 diabetes mellitus with diabetic chronic kidney disease; N18.32 Chronic kidney disease, stage 3b; E03.9 Hypothyroidism, unspecified; I65.23 Occlusion and stenosis of bilateral carotid arteries; E78.00 Pure hypercholesterolemia, unspecified; I25.10 Atherosclerotic heart disease of native coronary artery without angina pectoris; I25.2 Old myocardial infarction; Z87.891 Personal history of nicotine dependence; Z79.84 Long term (current) use of oral hypoglycemic drugs; Z79.82 Long term (current) use of aspirin; Z86.73 Personal history of transient ischemic attack (TIA), and cerebral infarction without residual deficits; Z79.899 Other long term (current) drug therapy
CPT/HCPCS: 36415; 71045; 80048; 80076; 82570; 82803; 82962; 83880; 84156; 84484; 85025; 85379; 87631; 87633; 93005; 94002; 94640; 94762; 97166; 99252; 99284; A4216; G0463; J1940

== ENCOUNTER → 2023-11-23 | Outpatient (CLI) | payer MEDICARE, SELFPAY ==
[2023-11-23 12:40] LABS: Absolute Lymphocyte Count 0.64 X10^3/uL (0.83-4.51); Absolute Neutrophil Count 7.2 X10^3/uL (2.0-7.7); Basophil# 0.01 X10^3/uL; Basophil% 0.1 % (0-1); Eosinophil# 0.04 X10^3/uL; Eosinophils% 0.5 % (0-5); Hematocrit 27.3 % (40-54); Hemoglobin 8.4 g/dL (13.0-16.5); Lymphocyte # 0.64 X10^3/ul (0.83-4.51); Lymphocyte % 7.8 % (19-41); Mean Corp Hgb Conc 30.8 g/dL (32-36); Mean Corpuscular Hgb 29.8 pg (27.0-32.0); Mean Corpuscular Volume 96.8 fL (80-94); Mean Platelet Vol. 11.8 fl (6.2-12.0); Monocyte# 0.25 X10^3/uL; Monocyte% 3.1 % (0-10); NRBC Flagged by Analyzer 0 % (0-5); Neutrophil # 7.18 X10^3/uL (2.7-7.7); Neutrophil % 87.6 % (47-70); Platelet Count 117 K/mm3 (150-450); RBC Distribution Width CV 14.7 % (11.6-14.6); RBC Distribution Width SD 52.2 fl (35.1-43.9); Red Blood Count 2.82 M/mm3 (4.6-6.2); White Blood Count 8.2 K/mm3 (4.4-11.0)
[2023-11-23 13:45] LABS: Anion Gap 11 (5-15); BUN 114 mg/dL (7-18); BUN/Creat Ratio 40.1 RATIO (10-20); Calcium,Total 8.7 mg/dL (8.5-10.1); Chloride 105 mmol/L (98-107); Creatinine, Serum 2.84 mg/dL (0.70-1.30); EST Glomerular Filtration Rate 23 mL/min (>60); Est Glom Filt Rate - Afr Amer 27 mL/min (>60); Glucose 457 mg/dL (74-106); Potassium 4.7 mmol/L (3.5-5.1); Sodium Level 139 mmol/L (136-145)
== END | disposition home or self-care (01) ==
PROVIDERS: PCP Family Medicine; Visit Provider Family Medicine
DX: D64.9 Anemia, unspecified (principal); N28.9 Disorder of kidney and ureter, unspecified
CPT/HCPCS: 36415; 80048; 85025

== ENCOUNTER 2023-12-02 18:08 | Emergency (ER) | payer MEDICARE, SELFPAY ==
[2023-12-02 18:09] VITALS: BP 125/111; PULSE 112; RESP 22; TEMP 36.6; O2SAT 97; O2SAT 98
[2023-12-02 18:40] VITALS: BMI 32.0
--- NOTE | 2023-12-02 18:41 | ED.RN ---
pt appears sob, cant lay back due to difficulty breathing. sitting at side of bed. increased work of breathing with talking and very minimal activity. pt states this is normal. i always breath like this when i have to do stuff
--- NOTE | 2023-12-02 19:12 | CT_ITS ---
STUDY: CT ABDOMEN AND PELVIS WITH CONTRAST REASON FOR EXAM: Male, 83 years old. LLQ and groin pain RADIATION DOSAGE (If Supplied By Facility): CTDIvol = ( 21.77 ) mGy, DLP = ( 1082.23 ) mGycm TECHNIQUE: Transaxial images were obtained from the dome of the diaphragm to the symphysis pubis without oral contrast. IV 100mL Isovue-370 was administered. Sagittal and coronal images were reconstructed. Individualized dose optimization techniques were used for this CT. COMPARISON: None. FINDINGS: The visualized lung bases are unremarkable. The visualized portions of the heart are within normal limits. Normal liver. Layering small calcified gallstones in the gallbladder consistent with cholelithiasis. Normal spleen. Subcentimeter cyst in the body the pancreas. Normal bilateral adrenal glands. Normal right kidney. Normal left kidney. 2 cm exophytic cyst upper pole left kidney. Normal visualized stomach. Normal small intestine. Normal colon. There is non-visualization of the appendix. There is diffuse atherosclerotic calcification of the abdominal aorta, without a demonstrated aneurysm. Normal inferior vena cava. Normal retroperitoneum. Normal urinary bladder. Normal abdominal wall. Mild dextroscoliosis lumbar spine with degenerative disc disease. CT/Abdomen/Pelvis W IV Cont ONLY IMPRESSION: No acute abnormality. Cholelithiasis. Electronically Signed: Dennis Garcia MD at 21:15 EDT ,
--- NOTE | 2023-12-02 19:13 | EDS_ITS ---
HPI HPI - GI History of Present Illness Chief Complaint: Abd Pain Informant: patient Abdominal Pain/Flank Pain Onset: Today and Hours Timing: Intermittent Location: See Diagram (Intermittent left lower quadrant abdominal pain. Currently pain-free.) Current Severity: Gone Maximum Severity: Mild Nausea/Vomiting/Emesis GI Symptom: Negative for Nausea or Vomiting Diarrhea/Melena/Hematochezia GI Symptom: Negative for Diarrhea, Melena or Hematochezia Associated Symptoms Associated Symptoms: Negative for Dysuria, Frequency, Hematuria or Urgency Narrative Narrative: 83-year-old male history of COPD diabetes prior stroke. States that today around noon he started getting left lower quadrant abdominal pain. Denies any prior history. No prior abdominal surgery. No history of diverticulitis. States the pain comes and goes. Nothing makes it better or worse. He denies any nausea, vomiting, diarrhea or constipation. No dysuria or hematuria. No fever or chills. Currently is pain-free. Prior similar symptoms: No Recent Illness/Hospitalization: Yes PFSH PFSH Medical History COPD (chronic obstructive pulmonary disease) Loss of hearing No natural teeth Wears glasses Poor historian Thyroid disease Low iron High cholesterol Syncope History of GI bleed Shortness of breath on exertion History of echocardiogram Cardiology follow-up encounter Symptomatic anemia Diabetes Kidney disease Former smoker On home oxygen therapy TIA (transient ischemic attack) Myocardial infarct Hypertension Diastolic CHF Acute and chronic respiratory failure with hypoxia History of CAD (coronary artery disease) Nonrheumatic aortic (valve) stenosis Mild left ventricular hypertrophy History of left heart catheterization (LHC) (~03/15/22) Atherosclerotic heart disease of [place] coronary artery without angina pectoris Aortic valve stenosis, acquired CAD (coronary artery disease) COPD (chronic obstructive pulmonary disease) Polyarthralgia Diabetes mellitus, type 2 Former tobacco use Obesity Hypothyroidism HLD (hyperlipidemia) HTN (hypertension) Chronic respiratory failure with hypoxia Home Medications ?Medication ?Instructions ?Recorded ?Last Taken ?Type atorvastatin 80 mg tablet 80 mg PO DAILY CHOLESTEROL 05/02/21 11/17/23 History cholecalciferol (vitamin D3) 25 25 mcg PO DAILY vitamin 05/02/21 11/18/23 History mcg (1,000 unit) capsule ipratropium 0.5 mg-albuterol 3 mg 3 ml inhalation 4X/DAY PRN sob 05/02/21 11/18/23 History (2.5 mg base)/3 mL nebulization soln liothyronine 25 mcg tablet 25 mcg PO DAILY THYROID 05/02/21 11/18/23 History omega-3 fatty acids-vitamin E 2 cap PO BID SUPPLEMENT 05/02/21 11/18/23 History 1,000 mg capsule tiotropium bromide 18 mcg capsule 18 mcg inhalation DAILY SOB 05/02/21 11/17/23 History with inhalation device (Spiriva with HandiHaler) vitamins A,C,J-[id number]-ogrpnv 4,296 1 cap PO BID vitamin 12/13/21 11/18/23 History mcg-226 mg-90 mg capsule (PreserVision AREDS) glimepiride 2 mg tablet 2 mg PO DAILY DM #3 tabs 03/09/23 11/18/23 Rx empagliflozin 10 mg tablet 10 mg PO DAILY 30 days #30 tabs 04/26/23 11/18/23 Rx (Jardiance) lisinopril 10 mg tablet 10 mg PO DAILY 06/27/23 11/18/23 History metoprolol succinate 25 mg 25 mg PO DAILY 06/27/23 11/18/23 History tablet,extended release 24 hr pantoprazole 40 mg tablet,delayed 40 mg PO DAILY 06/27/23 11/18/23 History release (Protonix) sucralfate 1 gram tablet 1 g PO BID stomach 06/27/23 11/18/23 History ferrous sulfate 325 mg (65 mg 325 mg PO BID 11/14/23 11/18/23 History iron) tablet (FeroSul) aspirin 81 mg tablet,delayed 81 mg PO DAILY 11/18/23 11/18/23 History release (Adult Aspirin Regimen) prednisone 20 mg tablet 40 mg (2 x 20 mg) PO DAILY 5 days 11/20/23 Unknown Rx #10 tabs torsemide 10 mg tablet 40 mg (4 x 10 mg) PO DAILY 30 days 11/20/23 Unknown Rx #120 tabs Allergy/AdvReac Type Severity Reaction Status Date / Time aliskiren (From Valturna) Allergy Intermediate Other Verified 12/02/23 18:11 valsartan (From Valturna) Allergy Intermediate Other Verified 12/02/23 18:11 codeine AdvReac Upset Verified 12/02/23 18:11 Stomach Family History Mother CVA (cerebral vascular accident) Heart disease Myocardial infarction Hx of CABG Hypertension Father CVA (cerebral vascular accident) Heart disease Surgical History S/P cataract extraction Social History household members: none housing: house Smoking Status: Former smoker how long ago did patient quit smoking: Quit 2011, prior 1 ppd since teen. alcohol intake: former year quit: 2010 substance use type: does not use ROS ROS ED ROS Narrative Denies recent illness. Constitutional Constitutional ED: Denies chills or fever(s) ENT ENT ED: Denies ear pain Cardiovascular Cardiovascular: Denies chest pain Respiratory/Chest Respiratory/Chest: Denies cough or dyspnea Gastrointestinal Gastrointestinal: Reports abdominal pain; Denies constipation, diarrhea, melena, nausea or vomiting Genitourinary Genitourinary ED: Denies dysuria or hematuria Musculoskeletal Musculoskeletal: Denies arthralgias Integumentary Denies abscess Neurologic Neurologic: Denies headache(s) Psychiatric Psychiatric: Denies anxiety or depression Endocrine Endocrinology: Denies polydipsia Hematologic/Lymphatic Hematologic/Lymphatic: Denies easy bleeding Allergic/Immunologic Allergic/Immunologic ED: Denies mouth swelling EXAM Physical Exam Narrative Exam Narrative: 83-year-old male vital signs stable afebrile. Does look septic toxic is no distress. Currently his pain free. H EENT exam unremarkable. Neck nontender no lymphadenopathy. Lungs clear to auscultation. Heart tachycardic 105 no murmur. Chest wall ribs nontender. Abdomen soft nontender, nondistended, n ormal bowel sounds without peritoneal signs. Where he is complaining of pain left lower quadrant and groin there is no reproducible pain currently. There is no bruising. There is no hernia or mass. He has full flexion extension and rotation of his left hip knee and ankle. There is no reproducible pain with movement of his leg or palpating his abdomen. Right upper and right upper quadrant unremarkable. He is nondistended. Moving all 4 extremities. Nontender no edema. Back nontender. He is awake and alert. Const Vital Signs: 12/02/23 18:09 12/02/23 20:08 Temperature 97.8 F Temperature Source Temporal Pulse Rate 112 H 107 H Respiratory Rate 22 H 24 H Blood Pressure 125/111 H 137/61 H Blood Pressure Mean 115 86 Pulse Ox 97 99 Oxygen Delivery Method Nasal Cannula Nasal Cannula Oxygen Flow Rate (L/min) 4 4 Positive well nourished, well developed and obese; Negative for cachectic, contractures or unkempt General Appearance ED: well developed; Negative for unkempt, cachectic, contractures or pallor Nutritional Appearance: obese; Negative for cachectic HEENT Reports moist mucous membranes; Denies dry mucous membranes normocephalic and atraumatic; Negative for trauma or tenderness Mouth ED: No dry mucous membranes Mouth: No dry mucous membranes Eyes PERRL and EOMs intact bilaterally General Eye ED: Negative for pale conjunctiva or scleral icterus Neck no lymphadenopathy, supple and no JVD General: Negative for tenderness Lymph Lymphatic: Negative for other Resp normal respiratory effort and clear to auscultation bilaterally Effort and Inspection: Negative for respiratory distress Auscultation: Negative for rales, rhonchi, wheezes, diminished lung sounds or other Cardio regular rhythm, S1 normal heart sound, S2 normal heart sound and no murmurs; Negative for regular rate Rate: tachycardic GI non-tender, non-distended and no masses GI Narrative: No abdominal pain. Palpation: soft; Negative for tender, guarding, hepatomegaly, splenomegaly, hernia, mass, pulsatile mass or rebound tenderness present Back/Spine no CVA tenderness General Back: Negative for CVA tenderness Cervical Spine: Negative for cervical spine tenderness Thoracic Spine / Upper Back: Negative for thoracic spinal tenderness Lumbar Spine / Lower Back: Negative for lumbar spinal tenderness Extremity full ROM General Extremety ED: Negative for tenderness Neuro CN's II-XII intact bilaterally and moves all extremities Sensorium / Orientation: alert, oriented to person, oriented to place and oriented to time; Negative for orientation impaired or confused Motor Exam: strength 5/5 throughout Psych mental status grossly normal and thought process normal Appearance: Negative for unkempt Attitude: No agitated Mood & Affect: Negative for depressed, anxious or tearful Skin General Skin Exam: Negative for jaundice or pallor Lesions: no lesions Rashes: no rashes MDM MDM MDM Narrative Medical decision making narrative: 83-year-old male with intermittent left lower quadrant and the right abdominal pain. That is not reproducible. He currently has no pain. CAT scan labs are pending. He has no urinary symptoms. He needs nothing for pain or nausea currently does not have any pain or nausea and he has not had any nausea. Repeat exam no change. Repeat abdominal exam there is no hernia or mass. There is no reproducible pain. Currently is not having any pain. I had him stand up I do not feel any obvious inguinal hernia. It is more lateral than the inguinal canal. Patient be discharged home with outpatient follow-up. He has appointment see his primary care physician Dr. Emeka Hernandez this coming Sunday. Prior to discharge patient requested aerosol treatment. Has a history of COPD. History & Record Review Discussion w/independent historian: Patient Additional record(s) reviewed:: Prior inpatient record, Prior outpatient record, Prior ED visit and Prior labs Lab Data Attestation: I reviewed the patient's lab results. Lab results narrative: CBC showed a white count 7.9. H&H 7.7 23.9. Platelets 85,000. Electrolytes show gap 6. BUN and creatinine 87 2.43. Glucose 324. UA negative. Labs are consistent with his chronic anemia and chronic kidney disease. Labs: Laboratory Results - last 24 hr 12/02/23 12/02/23 19:16 19:18 WBC 7.9 RBC 2.51 L Hgb 7.7 L Hct 23.9 L MCV 95.2 H MCH 30.7 MCHC 32.2 RDW Std Deviation 46.6 H RDW Coeff of John 13.3 Plt Count 85 L MPV 11.1 Immature Gran % (Auto) 0.300 Neut % (Auto) 81.7 H Lymph % (Auto) 9.9 L [place] % (Auto) 5.3 Eos % (Auto) 2.7 Baso % (Auto) 0.1 Absolute Neuts (auto) 6.5 Absolute Lymphs (auto) 0.78 L Nucleated RBC % 0 Sodium 140 Potassium 4.7 Chloride 104 Carbon Dioxide 30.0 Anion Gap 6 BUN 87 H Creatinine 2.43 H Estim Creat Clear Calc 22.97 Est GFR (MDRD) Af Amer 33 L Est GFR (MDRD) Non-Af 27 L BUN/Creatinine Ratio 35.8 H Glucose 324 H Calcium 8.8 Urine Color Yellow Urine Clarity Clear Urine pH 6.0 Ur Specific [place] 1.020 Urine Protein 100 H Urine Glucose (UA) Normal Urine Ketones Negative Urine Occult Blood 10 H Urine Nitrite Negative Urine Bilirubin Negative Urine Urobilinogen Normal Ur Leukocyte Esterase Negative Urine RBC 0 SEEN Urine WBC 0 SEEN Ur Squamous Epith Cells 0 SEEN Urine Bacteria 0 SEEN Urine Mucus 0 SEEN Radiography Diagnostic Testing: Clinical Impression(s) from Imaging Studies Abdomen/Pelvis CT 12/02/23 19:12 IMPRESSION: No acute abnormality. Cholelithiasis. Electronically Signed: Dennis Garcia MD at 21:15 EDT , Discharge Plan Triage Chief Complaint: Abd Pain ED Provider: Dimitry Lott Dx/Rx/DC Orders Clinical Impression: Abdominal pain, Chronic kidney disease, History of COPD, Chronic anemia Instructions: Abdominal Pain Prescriptions: No Action atorvastatin 80 mg tablet 80 mg PO DAILY ipratropium-albuterol 0.5 mg-3 mg(2.5 mg base)/3 mL solution for nebulization 3 ml inhalation 4X/DAY PRN (Reason: sob) Patient Comments: inhale contents of 1 vial ( 3 milliliters ) in nebulizer by mouth... (REFER TO PRESCRIPTION NOTES). liothyronine 25 mcg tablet 25 mcg PO DAILY Patient Comments: TAKE 1 TABLET BY MOUTH ONCE DAILY FOR 90 DAYS tiotropium bromide [Spiriva with HandiHaler] 18 mcg capsule, w/inhalation device 18 mcg INHALATION DAILY Patient Comments: INHALE THE CONTENTS OF 1 CAPSULE TWICE EACH TIME VIA HANDIHALER ONCE DAILY cholecalciferol (vitamin D3) 25 mcg (1,000 unit) Capsule 25 mcg PO DAILY omega-3 fatty acids-vitamin E 1,000 mg Capsule 2 cap PO BID PreserVision AREDS 14320-226-200 [id number] Capsule 1 cap PO BID Jardiance 10 mg Tablet 10 mg PO DAILY 30 Days Qty: 30 0RF glimepiride 2 mg tablet 2 mg PO DAILY Qty: 3 0RF Patient Comments: take 1 tablet by mouth once daily WITH FIRST MEAL OF THE DAY Rx Instructions: Hold if glucose less than 130 mg/dl lisinopril 10 mg tablet 10 mg PO DAILY sucralfate 1 gram tablet 1 g PO BID Patient Comments: pe rpt no longer taking pantoprazole [Protonix] 40 mg tablet,delayed release (DR/EC) 40 mg PO DAILY metoprolol succinate 25 mg tablet extended release 24 hr 25 mg PO DAILY ferrous sulfate [FeroSul] 325 mg (65 mg iron) tablet 325 mg PO BID aspirin [Adult Aspirin Regimen] 81 mg tablet,delayed release (DR/EC) 81 mg PO DAILY prednisone 20 mg tablet 40 mg PO DAILY 5 Days Qty: 10 0RF torsemide 10 mg tablet 40 mg PO DAILY 30 Days Qty: 120 0RF Primary Care Provider: Emeka Hernandez Referrals: Emeka Hernandez MD [Primary Care Provider] - Keep Ignacio appointment Activity Restrictions/Additional Instructions: The CAT scan the labs showed no specific cause of your pain. It may be a hernia but I do not see or feel hernia at this time. Follow-up with your primary care physician with your scheduled appointment this week. Return if worsening pain, fever or intractable vomiting. Tylenol for pain. Print Language: Yoruba Disposition Disposition: Home, Self Care
[2023-12-02 19:26] LABS: Absolute Lymphocyte Count 0.78 X10^3/uL (0.83-4.51); Absolute Neutrophil Count 6.5 X10^3/uL (2.0-7.7); Basophil# 0.01 X10^3/uL; Basophil% 0.1 % (0-1); Eosinophil# 0.21 X10^3/uL; Eosinophils% 2.7 % (0-5); Hematocrit 23.9 % (40-54); Hemoglobin 7.7 g/dL (13.0-16.5); Lymphocyte # 0.78 X10^3/ul (0.83-4.51); Lymphocyte % 9.9 % (19-41); Mean Corp Hgb Conc 32.2 g/dL (32-36); Mean Corpuscular Hgb 30.7 pg (27.0-32.0); Mean Corpuscular Volume 95.2 fL (80-94); Mean Platelet Vol. 11.1 fl (6.2-12.0); Monocyte# 0.42 X10^3/uL; Monocyte% 5.3 % (0-10); NRBC Flagged by Analyzer 0 % (0-5); Neutrophil # 6.46 X10^3/uL (2.7-7.7); Neutrophil % 81.7 % (47-70); POSITIVE COUNT YES; Platelet Count 85 K/mm3 (150-450); RBC Distribution Width CV 13.3 % (11.6-14.6); RBC Distribution Width SD 46.6 fl (35.1-43.9); Red Blood Count 2.51 M/mm3 (4.6-6.2); White Blood Count 7.9 K/mm3 (4.4-11.0)
[2023-12-02 19:28] LABS: Bacteria 0 SEEN /hpf (None Seen); Mucous, Urine 0 SEEN /hpf (<or=2+); Red Blood Cells-Urine 0 SEEN /hpf (0-5); Squamous Epithelial Cells - UA 0 SEEN /hpf (0-5); White Blood Cells 0 SEEN /hpf (0-5)
[2023-12-02 19:29] LABS: Color, Urine Yellow (Yellow); Glucose, Dipstick Normal (Normal); Ketone-Dipstick Negative (Negative); Leukocyte Esterase-Dipstick Negative /ul (Negative); Nitrite-Dipstick Negative (Negative); Occult Blood-Urine 10 /ul (Negative); Protein-Dipstick 100 mg/dl (Negative); Urine Bilirubin Dipstick Negative (Negative); Urine Clarity Clear (Clear); Urine Urobilinogen Normal (Normal)
[2023-12-02 19:39] LABS: Anion Gap 6 (5-15); BUN 87 mg/dL (7-18); BUN/Creat Ratio 35.8 RATIO (10-20); Calcium,Total 8.8 mg/dL (8.5-10.1); Chloride 104 mmol/L (98-107); Creatinine, Serum 2.43 mg/dL (0.70-1.30); EST Glomerular Filtration Rate 27 mL/min (>60); Est Glom Filt Rate - Afr Amer 33 mL/min (>60); Estimated Creatinine Clearance 22.97 ml/min; Glucose 324 mg/dL (74-106); Potassium 4.7 mmol/L (3.5-5.1); Sodium Level 140 mmol/L (136-145)
[2023-12-02 20:08] VITALS: BP 137/61; PULSE 107; RESP 24; O2SAT 99
[2023-12-02] MEDS: Ipratropium/Albuterol Sulfate 3 ML AMPUL.NEB INHALATION (21:41)
[2023-12-02 21:42] VITALS: PULSE 107; RESP 28
[2023-12-02 22:00] VITALS: BP 132/57; PULSE 106; RESP 18; O2SAT 99
[2023-12-02 23:15] VITALS: BP 112/42; PULSE 105; RESP 20; TEMP 36.6; O2SAT 99
== END 2023-12-02 23:24 | disposition home or self-care (01) ==
PROVIDERS: Emergency Provider Emergency Medicine; PCP Family Medicine; Visit Provider Emergency Medicine
DX: R10.32 Left lower quadrant pain (principal); I13.0 Hypertensive heart and chronic kidney disease with heart failure and stage 1 through stage 4 chronic kidney disease, or unspecified chronic kidney disease; I50.32 Chronic diastolic (congestive) heart failure; J44.9 Chronic obstructive pulmonary disease, unspecified; E11.22 Type 2 diabetes mellitus with diabetic chronic kidney disease; I25.10 Atherosclerotic heart disease of native coronary artery without angina pectoris; N18.9 Chronic kidney disease, unspecified; Z87.891 Personal history of nicotine dependence; E78.00 Pure hypercholesterolemia, unspecified; Z86.73 Personal history of transient ischemic attack (TIA), and cerebral infarction without residual deficits; I25.2 Old myocardial infarction; Z79.899 Other long term (current) drug therapy; Z79.84 Long term (current) use of oral hypoglycemic drugs; E03.9 Hypothyroidism, unspecified; Z79.890 Hormone replacement therapy; D64.9 Anemia, unspecified
CPT/HCPCS: 74177; 80048; 81001; 85025; 94640; 99283; Q9967

== ENCOUNTER → 2023-12-05 | Outpatient (CLI) | payer MEDICARE, SELFPAY ==
[2023-12-05 14:09] LABS: Anion Gap 7 (5-15); BUN 101 mg/dL (7-18); BUN/Creat Ratio 31.3 RATIO (10-20); Calcium,Total 8.3 mg/dL (8.5-10.1); Chloride 104 mmol/L (98-107); Creatinine, Serum 3.23 mg/dL (0.70-1.30); EST Glomerular Filtration Rate 20 mL/min (>60); Est Glom Filt Rate - Afr Amer 24 mL/min (>60); Glucose 151 mg/dL (74-106); Sodium Level 141 mmol/L (136-145)
== END | disposition home or self-care (01) ==
LOC: MTLAB 09:41
PROVIDERS: PCP Family Medicine; Referring Provider Family Medicine; Visit Provider Family Medicine
DX: N28.9 Disorder of kidney and ureter, unspecified (principal)
CPT/HCPCS: 36415; 80048

== ENCOUNTER 2023-12-06 13:32 | Inpatient (IN) | payer MEDICARE, SELFPAY ==
[2023-12-06] VITALS (18 sets, daily range): BP systolic 117–144; BP diastolic 45–119; PULSE 100–110; RESP 16–25; TEMP 36.3–37.1; O2SAT 91–100; BMI 33.7; BMI 32.1
[2023-12-06] MEDS: Ipratropium/Albuterol Sulfate 3 ML AMPUL.NEB INHALATION ×2 (13:42→20:09)
--- NOTE | 2023-12-06 13:58 | EDS_ITS ---
HPI History of Present Illness Chief Complaint: Shortness of Breath Informant: patient and EMS Narrative Narrative: Patient is an 83-year-old male with history of chronic hypoxic respiratory failure (on 3 L of oxygen at baseline), hypertension, COPD, heart failure with mild concentric LVH and stage I diastolic dysfunction (EF on 11/14/2454%). He is presenting for worsening shortness of breath. Patient states he is just discharged from the hospital on Sunday, 5 days ago. Apparently had worsening shortness of breath and EMS was called. EMS reports that he was in the 80s on his home O2 and they arrived and he was transferred on nonrebreather. Patient also states his blood sugar was elevated around 500 this morning. He feels that he is filling up with fluid. He does not think that the furosemide is working and is not urinating as much as he had been. Denies any chest pain. Does not report any fevers. [facility] Medical History COPD (chronic obstructive pulmonary disease) Loss of hearing No natural teeth Wears glasses Poor historian Thyroid disease Low iron High cholesterol Syncope History of GI bleed Shortness of breath on exertion History of echocardiogram Cardiology follow-up encounter Symptomatic anemia Diabetes Kidney disease Former smoker On home oxygen therapy TIA (transient ischemic attack) Myocardial infarct Hypertension Diastolic CHF Acute and chronic respiratory failure with hypoxia History of CAD (coronary artery disease) Nonrheumatic aortic (valve) stenosis Mild left ventricular hypertrophy History of left heart catheterization (LHC) (~03/15/22) Atherosclerotic heart disease of [place] coronary artery without angina pectoris Aortic valve stenosis, acquired CAD (coronary artery disease) COPD (chronic obstructive pulmonary disease) Polyarthralgia Diabetes mellitus, type 2 Former tobacco use Obesity Hypothyroidism HLD (hyperlipidemia) HTN (hypertension) Chronic respiratory failure with hypoxia Home Medications ?Medication ?Instructions ?Recorded ?Last Taken ?Type atorvastatin 80 mg tablet 80 mg PO DAILY CHOLESTEROL 05/02/21 12/05/23 History cholecalciferol (vitamin D3) 25 25 mcg PO DAILY vitamin 05/02/21 12/06/23 History mcg (1,000 unit) capsule ipratropium 0.5 mg-albuterol 3 mg 3 ml inhalation 4X/DAY PRN sob 05/02/21 11/18/23 History (2.5 mg base)/3 mL nebulization soln liothyronine 25 mcg tablet 25 mcg PO DAILY THYROID 05/02/21 12/06/23 History omega-3 fatty acids-vitamin E 2 cap PO BID SUPPLEMENT 05/02/21 11/18/23 History 1,000 mg capsule tiotropium bromide 18 mcg capsule 18 mcg inhalation DAILY SOB 05/02/21 11/17/23 History with inhalation device (Spiriva with HandiHaler) vitamins A,C,V-ykuj-qrgbxq 4,296 1 cap PO BID vitamin 12/13/21 12/06/23 History mcg-226 mg-90 mg capsule (PreserVision AREDS) glimepiride 2 mg tablet 2 mg PO DAILY DM #3 tabs 03/09/23 12/06/23 Rx empagliflozin 10 mg tablet 10 mg PO DAILY heart failure 30 04/26/23 12/06/23 Rx (Jardiance) days #30 tabs lisinopril 10 mg tablet 10 mg PO DAILY HTN 06/27/23 12/06/23 History metoprolol succinate 25 mg 25 mg PO DAILY heart 06/27/23 12/05/23 History tablet,extended release 24 hr pantoprazole 40 mg tablet,delayed 40 mg PO BID stomach 06/27/23 12/06/23 History release (Protonix) ferrous sulfate 325 mg (65 mg 325 mg PO BID supplement 11/14/23 12/06/23 History iron) tablet (FeroSul) aspirin 81 mg tablet,delayed 81 mg PO DAILY heart health 11/18/23 12/06/23 Hist ory release (Adult Aspirin Regimen) torsemide 10 mg tablet 40 mg (4 x 10 mg) PO DAILY 11/20/23 12/06/23 Rx diuretic 30 days #120 tabs Allergy/AdvReac Type Severity Reaction Status Date / Time aliskiren (From Valturna) Allergy Intermediate Other Verified 12/06/23 13:33 valsartan (From Valturna) Allergy Intermediate Other Verified 12/06/23 13:33 codeine AdvReac Upset Verified 12/06/23 13:33 Stomach Family History Mother CVA (cerebral vascular accident) Heart disease Myocardial infarction Hx of CABG Hypertension Father CVA (cerebral vascular accident) Heart disease Surgical History S/P cataract extraction Social History household members: none housing: house Smoking Status: Former smoker how long ago did patient quit smoking: Quit 2010, prior 1 ppd since teen. alcohol intake: former year quit: 2010 substance use type: does not use ROS ROS ED ROS Narrative Review of systems limited secondary to respiratory distress Cardiovascular Cardiovascular: Denies chest pain Respiratory/Chest Respiratory/Chest: Reports dyspnea Gastrointestinal Gastrointestinal: Denies nausea or vomiting Genitourinary Genitourinary ED: Reports other Details: Decreased urination EXAM Physical Exam Const Vital Signs: 12/06/23 13:33 12/06/23 13:37 12/06/23 13:42 Temperature 98.4 F Temperature Source Oral Pulse Rate 110 H Respiratory Rate 25 H Respiratory Effort Short of Breath Labored Respiratory Depth Shallow Respiratory Pattern Tachypnea Blood Pressure Blood Pressure Mean Pulse Ox 91 94 Oxygen Delivery Method Nasal Cannula Nasal Cannula Nasal Cannula Oxygen Flow Rate (L/min) 3 3 12/06/23 13:42 12/06/23 15:11 12/06/23 16:08 Temperature Temperature Source Pulse Rate 100 107 H Respiratory Rate 24 H 22 H Respiratory Effort Respiratory Depth Respiratory Pattern Tachypnea Blood Pressure 128/105 H 131/119 H Blood Pressure Mean 112 123 Pulse Ox 99 Oxygen Delivery Method Room Air Oxygen Flow Rate (L/min) 12/06/23 16:08 12/06/23 16:10 Temperature 98.7 F 98.7 F Temperature Source Oral Pulse Rate 107 H 107 H Respiratory Rate 22 H 22 H Respiratory Effort Respiratory Depth Respiratory Pattern Blood Pressure 131/119 H 131/119 H Blood Pressure Mean 123 123 Pulse Ox 99 99 Oxygen Delivery Method Oxygen Flow Rate (L/min) Positive well nourished and well developed Constitutional Narrative: Patient in acute respiratory distress General Appearance ED: well developed HEENT Reports moist mucous membranes Eyes PERRL and EOMs intact bilaterally General Eye ED: Yes pale conjunctiva Neck supple and no JVD Resp Resp Narrative: Tachypneic, able to speak in only 1-2 word sentences. Auscultation: diminished lung sounds; Negative for rhonchi or wheezes Cardio regular rhythm Rate: tachycardic GI non-tender and non-distended Extremity Extremity Narrative: Pitting edema to mid tibia bilateral General Extremety ED: Yes edema General Extremity: edema Neuro oriented x3 Neuro Narrative: Generally weak, no focal deficits appreciated Sensorium / Orientation: alert Psych Mood & Affect: anxious Skin no wounds MDM MDM MDM Narrative Medical decision making narrative: Patient for increased fluid retention and worsening shortness of breath.. The patient was quite hypoxic upon arrival placed on nonrebreather. Patient is quite tachypneic in the emergency room. He is tachycardic. EKG shows diffuse changes more consistent with subendocardial injury as well as tachycardia. Patient does have multiple comorbidities. Initially he was breathing quite shallow and tachypneic and I was concerned that he would need BiPAP for his work of breathing. Has previously required Ativan to tolerate BiPAP. Ativan was ordered and this actually significantly improved his breathing. Suspect there is a component of anxiety. VBG obtained which is largely normal and not consistent with any type of decompensated respiratory acidosis. CBC does show worsening anemia with a hemoglobin of 6.8. Likely there is a delusional component to it however he also has a chronic thrombocytopenia. Given his anemia as well as worsening respiratory symptoms and history of cardia c disease will transfuse. Is ordered a unit of blood. Attempted to obtain stool sample to test for signs of GI bleeding (chart review shows that last year patient did have an occult positive stool) however patient would not tolerate laying on his side for me to get this. His BNP is elevated but stable. His high since he troponin is uptrending as well. Patient I suspect has strain from his anemia and his respiratory symptoms. He does have some findings consistent with cardiomegaly/CHF and peripheral edema all consistent with fluid overload. Patient will be diuresed after receiving blood products. Case is discussed with my physician, Dr. Pardo. patient will be admitted back to the hospital History & Record Review Additional record(s) reviewed:: Prior inpatient record Lab Data Attestation: I reviewed the patient's lab results. Labs: Laboratory Results - last 24 hr 12/06/23 12/06/23 13:45 15:00 WBC 5.5 RBC 2.25 L Hgb 6.8 L Hct 21.9 L MCV 97.3 H MCH 30.2 MCHC 31.1 L RDW Std Deviation 47.7 H RDW Coeff of John 13.4 Plt Count 75 L MPV 11.9 Immature Gran % (Auto) 0.400 Neut % (Auto) 78.4 H Lymph % (Auto) 11.3 L Curry % (Auto) 6.4 Eos % (Auto) 3.3 Baso % (Auto) 0.2 Absolute Neuts (auto) 4.3 Absolute Lymphs (auto) 0.62 L Nucleated RBC % 0 Sodium 142 Potassium 4.0 Chloride 106 Carbon Dioxide 26.0 Anion Gap 10 BUN 101 H* Creatinine 3.44 H Estim Creat Clear Calc 16.67 Est GFR (MDRD) Af Amer 22 L Est GFR (MDRD) Non-Af 18 L BUN/Creatinine Ratio 29.4 H Glucose 314 H Calcium 8.1 L Total Bilirubin 0.40 AST 12 L ALT 19 Alkaline Phosphatase 67 Troponin I High Sens 146 H* B-Natriuretic Peptide 149.9 H Total Protein 6.3 L Albumin 3.0 L Globulin 3.3 Albumin/Globulin Ratio 0.9 Blood Type A NEGATIVE Antibody Screen NEGATIVE Crossmatch See Detail ABG Data ABG results: ABG 12/06/23 14:13 Specimen Type DAYANA Sample Site Not entered O2 % 3.0 VBG pH 7.38 VBG pO2 53 H VBG HCO3 25 VBG Total CO2 27 VBG O2 Sat (Calc) 87 H VBG Base Excess 0 POC Mix VBG pCO2 Pt Tmp 42.6 O2 Delivery Device Cannula Radiography Chest X-Ray - ED: 1 View, Read by ED Physician, Read by Radiologist, Cardiomegaly and CHF Diagnostic Testing: Clinical Impression(s) from Imaging Studies Chest X-Ray 12/06/23 14:18 IMPRESSION: Cardiomegaly. CHF. Electronically Signed: Ishaan La MD at 14:27 EDT , Rhythm Strip Rhythm Strip: Sinus Tach Rate: 109 Ectopy: None EKG Initial EKG: Attestation: I personally reviewed and interpreted this EKG as follows: Interpretation: Sinus Tachycardia Comments: Sinus tachycardia rate of 109 bpm Left axis deviation Minimal voltage criteria for LVH ST depressions in lateral leads, no reciprocal changes These are new compared to prior EKG on 11/18/2023 Management Discussion w/another healthcare provider: Hospitalist Discharge Plan Triage Chief Complaint: Shortness of Breath ED Provider: Malina Ma Dx/Rx/DC Orders Clinical Impression: Shortness of breath, Elevated troponin, Abnormal ECG, Symptomatic anemia, Acute on chronic anemia, Acute on chronic renal insufficiency Primary Care Provider: Emeka Hernandez
[2023-12-06] MEDS: LORazepam 2 MG/ML Syringe 0.5 MG IV (14:01)
[2023-12-06 14:15] LABS: Absolute Lymphocyte Count 0.62 X10^3/uL (0.83-4.51); Absolute Neutrophil Count 4.3 X10^3/uL (2.0-7.7); Basophil# 0.01 X10^3/uL; Basophil% 0.2 % (0-1); Eosinophil# 0.18 X10^3/uL; Eosinophils% 3.3 % (0-5); Hematocrit 21.9 % (40-54); Hemoglobin 6.8 g/dL (13.0-16.5); Lymphocyte # 0.62 X10^3/ul (0.83-4.51); Lymphocyte % 11.3 % (19-41); Mean Corp Hgb Conc 31.1 g/dL (32-36); Mean Corpuscular Hgb 30.2 pg (27.0-32.0); Mean Corpuscular Volume 97.3 fL (80-94); Mean Platelet Vol. 11.9 fl (6.2-12.0); Monocyte# 0.35 X10^3/uL; Monocyte% 6.4 % (0-10); NRBC Flagged by Analyzer 0 % (0-5); Neutrophil # 4.33 X10^3/uL (2.7-7.7); Neutrophil % 78.4 % (47-70); POSITIVE COUNT YES; Platelet Count 75 K/mm3 (150-450); RBC Distribution Width CV 13.4 % (11.6-14.6); RBC Distribution Width SD 47.7 fl (35.1-43.9); Red Blood Count 2.25 M/mm3 (4.6-6.2); White Blood Count 5.5 K/mm3 (4.4-11.0)
[2023-12-06 14:17] LABS: Blood Gas Specimen Type VEN; O2 Delivery Device Cannula; SITE Not entered; VBG BASE EXCESS 0 mmol/L (-1.0-3.5); VBG Bicarbonate 25 mmol/L (22-26); VBG PO2 53 mmHg (25-40); VBG SO2 87 % (50-70); VBG TCO2 27 mmol/L (23-33); VBG pCO2 42.6 mmHg (41-51); VBG pH 7.38 (7.32-7.42)
--- NOTE | 2023-12-06 14:18 | RAD_ITS ---
STUDY: X-RAY CHEST REASON FOR EXAM: Male, 83 years old. Sob TECHNIQUE: Single AP portable view of the chest. COMPARISON: Comparison is made with prior study dated November 20, 2023. FINDINGS: EKG electrodes are seen. There is evidence of vascular congestion and a mild degree of CHF with bibasilar atelectasis. Blunting of the left costophrenic angle. There is mild cardiac enlargement. Normal mediastinum and purnima. Normal visualized pulmonary arteries. There is atherosclerotic calcification of the aortic arch with tortuosity. There are diffuse degenerative changes of the visualized thoracic spine. Normal visualized ribs, clavicles, and shoulders. There is no demonstrated abnormality of the visualized soft tissue structures of the upper abdomen. RAD/Chest 1 View (Portable) IMPRESSION: Cardiomegaly. CHF. Electronically Signed: Ishaan La MD at 14:27 EDT ,
[2023-12-06 14:24] LABS: ALB/GLOB Ratio 0.9 RATIO (0.9-2.4); AST(SGOT) 12 U/L (15-37); Alanine Aminotransfer ALT/SGPT 19 U/L (16-61); Alkaline Phosphatase 67 U/L (45-117); Anion Gap 10 (5-15); BUN 101 mg/dL (7-18); BUN/Creat Ratio 29.4 RATIO (10-20); Calcium,Total 8.1 mg/dL (8.5-10.1); Chloride 106 mmol/L (98-107); Creatinine, Serum 3.44 mg/dL (0.70-1.30); EST Glomerular Filtration Rate 18 mL/min (>60); Est Glom Filt Rate - Afr Amer 22 mL/min (>60); Estimated Creatinine Clearance 16.67 ml/min; Globulin 3.3 g/dL (2.2-4.2); Glucose 314 mg/dL (74-106); Protein, Total 6.3 g/dL (6.4-8.2); Sodium Level 142 mmol/L (136-145); Troponin-I HS (w/2H Reflex) 146 pg/mL (3.0-78.0)
[2023-12-06 14:45] LABS: BNP,B-Type NATRIURETIC PEPTIDE 149.9 pg/mL (0-100)
[2023-12-06 15:55] LABS: Reflex Troponin-HS? (from REC) Y
--- NOTE | 2023-12-06 16:29 | PCM.HP.STD ---
HPI - General General Date of Admission: 12/06/23 Date of Service: 12/06/23 Chief Complaint: Shortness of breath HPI Narrative BEULAH BRIGHT, is a 83-year-old male history of COPD and chronic hypoxic respiratory failure on 3 L home O2, CKD, right failure with preserved ejection fraction, hypertension, GERD, hypothyroidism, type 2 diabetes, CAD, severe carotid stenosis presented [facility] ED 12/06/2023 with increased shortness of breath. When EMS got to patient he was 80s on his 3 L and was placed on nonrebreather with improvement of sats and was saturating mid to high 90s on his 3 L of O2 by my evaluation, also in the ED was noted to have a hemoglobin of 6.8 which was down from 7.7 on 12/01 and a worsening creatinine of 3.44 that is steadily up trended over the past week. Also noted to have a troponin of 146. BNP 149 which is actually down from previous chest x-ray demonstrated some pulmonary vascular congestion and cardiomegaly. Due to patient's anemia, shortness of breath, elevated troponin hospitalist contacted for admission. Patient has had intermittent problems with his breathing for months now and reports he feels like this started when his glipizide was changed. This time shortness of breath seems to started today without any cough, not presently having any abdominal pain, does have decreased urination and some fatigue/and generally feeling unwell. Has difficulty seeing and is not sure if he has had any blood in his bowel movements. Does not necessarily feel like he is at increased swelling in his legs and denies any chest pain. Does report being compliant with his torsemide at home but still does not feel he is urinating very well. No cough, fevers or chills, changes in bowel movements that he is aware of. FORMERLY [facility], [facility] Medical History COPD (chronic obstructive pulmonary disease) Loss of hearing No natural teeth Wears glasses Poor historian Thyroid disease Low iron High cholesterol Syncope History of GI bleed Shortness of breath on exertion History of echocardiogram Cardiology follow-up encounter Symptomatic anemia Diabetes Kidney disease Former smoker On home oxygen therapy TIA (transient ischemic attack) Myocardial infarct Hypertension Diastolic CHF Acute and chronic respiratory failure with hypoxia History of CAD (coronary artery disease) Nonrheumatic aortic (valve) stenosis Mild left ventricular hypertrophy History of left heart catheterization (LHC) (~03/15/22) Atherosclerotic heart disease of [place] coronary artery without angina pectoris Aortic valve stenosis, acquired CAD (coronary artery disease) COPD (chronic obstructive pulmonary disease) Polyarthralgia Diabetes mellitus, type 2 Former tobacco use Obesity Hypothyroidism HLD (hyperlipidemia) HTN (hypertension) Chronic respiratory failure with hypoxia Home Medications ?Medication ?Instructions ?Recorded ?Last Taken ?Type atorvastatin 80 mg tablet 80 mg PO DAILY CHOLESTEROL 05/02/21 11/17/23 History cholecalciferol (vitamin D3) 25 25 mcg PO DAILY vitamin 05/02/21 11/18/23 History mcg (1,000 unit) capsule ipratropium 0.5 mg-albuterol 3 mg 3 ml inhalation 4X/DAY PRN sob 05/02/21 11/18/23 History (2.5 mg base)/3 mL nebulization soln liothyronine 25 mcg tablet 25 mcg PO DAILY THYROID 05/02/21 11/18/23 History omega-3 fatty acids-vitamin E 2 cap PO BID SUPPLEMENT 05/02/21 11/18/23 History 1,000 mg capsule tiotropium bromide 18 mcg capsule 18 mcg inhalation DAILY SOB 05/02/21 11/17/23 History with inhalation device (Spiriva with HandiHaler) vitamins A,C,A-hhnk-ictoqu 4,296 1 cap PO BID vitamin 12/13/21 11/18/23 History mcg-226 mg-90 mg capsule (PreserVision AREDS) glimepiride 2 mg tablet 2 mg PO DAILY DM #3 tabs 03/09/23 11/18/23 Rx empagliflozin 10 mg tablet 10 mg PO DAILY 30 days #30 tabs 04/26/23 11/18/23 Rx (Jardiance) lisinopril 10 mg tablet 10 mg PO DAILY 06/27/23 11/18/23 History metoprolol succinate 25 mg 25 mg PO DAILY 06/27/23 11/18/23 History tablet,extended release 24 hr pantoprazole 40 mg tablet,delayed 40 mg PO DAILY 06/27/23 11/18/23 History release (Protonix) ferrous sulfate 325 mg (65 mg 325 mg PO BID 11/14/23 11/18/23 History iron) tablet (FeroSul) aspirin 81 mg tablet,delayed 81 mg PO DAILY 11/18/23 11/18/23 History release (Adult Aspirin Regimen) torsemide 10 mg tablet 40 mg (4 x 10 mg) PO DAILY 30 days 11/20/23 Unknown Rx #120 tabs Allergy/AdvReac Type Severity Reaction Status Date / Time aliskiren (From Valturna) Allergy Intermediate Other Verified 12/06/23 13:33 valsartan (From Valturna) Allergy Intermediate Other Verified 12/06/23 13:33 codeine AdvReac Upset Verified 12/06/23 13:33 Stomach Family History Mother CVA (cerebral vascular accident) Heart disease Myocardial infarction Hx of CABG Hypertension Father CVA (cerebral vascular accident) Heart disease Surgical History S/P cataract extraction Social History household members: none housing: house Smoking Status: Former smoker how long ago did patient quit smoking: Quit 2011, prior 1 ppd since teen. alcohol intake: former year quit: 2010 substance use type: does not use ROS ROS Narrative General: Denies fever/chills, feels fatigued HENT: Denies headache, denies stuffy nose, denies sore throat EYES: Denies changes in vision Resp: Denies cough, increased shortness of breath today Cardiac: Denies chest pain GI: Occasionally gets some twinges in the left lower quadrant not present, denies changes in bowel, denies nausea/vomiting : Some decreased urination Extremity: Patient denies increased lower extremity swelling MSK: Some generalized weakness Neuro: Denies any numbness/tingling Heme: Denies any bleeding or bruising Skin: Denies rashes Psychiatric: No complaints voiced Vital Signs Vital Signs Vital Signs: 12/06/23 13:33 12/06/23 13:37 12/06/23 13:42 Temperature 98.4 F Temperature Source Oral Pulse Rate 110 H Respiratory Rate 25 H Respiratory Effort Short of Breath Labored Respiratory Depth Shallow Respiratory Pattern Tachypnea Blood Pressure Blood Pressure Mean Pulse Ox 91 94 Oxygen Delivery Method Nasal Cannula Nasal Cannula Nasal Cannula Oxygen Flow Rate (L/min) 3 3 12/06/23 13:42 12/06/23 15:11 12/06/23 16:08 Temperature Temperature Source Pulse Rate 100 107 H Respiratory Rate 24 H 22 H Respiratory Effort Respiratory Depth Respiratory Pattern Tachypnea Blood Pressure 128/105 H 131/119 H Blood Pressure Mean 112 123 Pulse Ox 99 Oxygen Delivery Method Room Air Oxygen Flow Rate (L/min) 12/06/23 16:08 12/06/23 16:10 Temperature 98.7 F 98.7 F Temperature Source Oral Pulse Rate 107 H 107 H Respiratory Rate 22 H 22 H Respiratory Effort Respiratory Depth Respiratory Pattern Blood Pressure 131/119 H 131/119 H Blood Pressure Mean 123 123 Pulse Ox 99 99 Oxygen Delivery Method Oxygen Flow Rate (L/min) Weight Weight: 92.1 kg Body Mass Index (BMI) 33.7 Physical Exam Narrative General: Alert, oriented, increased work of breathing HEENT: Atraumatic, normocephalic Eyes: Anicteric, normal conjunctiva, extraocular movements grossly intact Neck: Supple Respiratory: Diminished bilaterally, crackles at the bases, no wheezes or rhonchi, increased work of breathing Cardiovascular: Regular rate and rhythm GI: Soft, nontender, nondistended Extremities: 1+ lower extremity edema Musculoskeletal: Moving all extremities Neuro: No overt focal neurological deficits Skin: No rashes appreciated Psych: Cooperative Results Lab / Micro Data 12/06/23 13:45 12/06/23 13:45 Labs: Laboratory Results - last 24 hr 12/06/23 13:45: WBC 5.5, RBC 2.25 L, Hgb 6.8 L, Hct 21.9 L, MCV 97.3 H, MCH 30.2, MCHC 31.1 L, RDW Std Deviation 47.7 H, RDW Coeff of John 13.4, Plt Count 75 L, MPV 11.9, Immature Gran % (Auto) 0.400, Neut % (Auto) 78.4 H, Lymph % (Auto) 11.3 L, [place] % (Auto) 6.4, Eos % (Auto) 3.3, Baso % (Auto) 0.2, Absolute Neuts (auto) 4.3, Absolute Lymphs (auto) 0.62 L, Nucleated RBC % 0, Sodium 142, Potassium 4.0, Chloride 106, Carbon Dioxide 26.0, Anion Gap 10, BUN 101 H*, Creatinine 3.44 H, Estim Creat Clear Calc 16.67, Est GFR (MDRD) Af Amer 22 L, Est GFR (MDRD) Non-Af 18 L, BUN/Creatinine Ratio 29.4 H, Glucose 314 H, Calcium 8.1 L, Total Bilirubin 0.40, AST 12 L, ALT 19, Alkaline Phosphatase 67, Troponin I High Sens 146 H*, B-Natriuretic Peptide 149.9 H, Total Protein 6.3 L, Albumin 3.0 L, Globulin 3.3, Albumin/Globulin Ratio 0.9 12/06/23 15:00: Blood Type A NEGATIVE, Antibody Screen NEGATIVE, Crossmatch See Detail Micro: Microbiology 12/06/23 14:05 Mucosa - Nose SARS-CoV-2, Influenza & RSV (PCR) - Final ABG Data ABG results: ABG 12/06/23 14:13 Specimen Type DAYANA Sample Site Not entered O2 % 3.0 VBG pH 7.38 VBG pO2 53 H VBG HCO3 25 VBG Total CO2 27 VBG O2 Sat (Calc) 87 H VBG Base Excess 0 POC Mix VBG pCO2 Pt Tmp 42.6 O2 Delivery Device Cannula Rhythm Strip Rhythm Strip: Sinus Tach Rate: 109 Ectopy: None Imaging Radiology Impression Chest X-Ray 12/06/23 14:18 IMPRESSION: Cardiomegaly. CHF. Electronically Signed: Ishaan La MD at 14:27 EDT Reading Location ID and State: [facility] / [place] , Service support , Assessment & Plan Assessment/Plan (1) Shortness of breath: PLAN: Plan # Increased shortness of breath w/ Acute on chronic hypoxic respiratory failure in setting of COPD on 3 L home O2 -Patient initially hypoxic for urgent care with sat in 80s on his 3 L however improved to 90s on home 3 L without intervention -Suspect increased shortness of breath which has persisted despite the improvement in O2 sat is multifactorial -Does have some peripheral edema and chest x-ray with some mild congestion even though BNP is somewhat lower than previous suspect that there is a component of fluid overload -Additionally patient has hemoglobin of 6.8 which is down trended in the past 2 weeks from 8.4, patient unsure if he has had any blood in stool, check FOBT -Will transfuse as suspect patient is in part symptomatic anemia, IV Lasix posttransfusion -Does not seem to be in COPD exacerbation at this time # Acute on chronic heart failure with preserved ejection fraction -BNP somewhat lower than previous however chest x-ray somewhat congested and patient having some increased lower extremity swelling on exam -Admit to telemetry - IV lasix -Last echo done earlier this month 11/15/2023 with EF 55% stage I diastolic dysfunction -Daily weights, I's and O's -Fluid restriction, heart healthy diet # Acute on chronic symptomatic anemia, unclear etiology -Patient with hemoglobin of 6.8 and his baseline is 8-9 range, patient is unsure if there is been any blood in his stool and given respiratory status he was not laid flat for rectal exam in the ED -Will check fecal occult once patient can provide sample -Could certainly be dilutional but unclear at this time -Trend H&H -Will start on IV PPI as well while awaiting results -Patient received a unit of packed red blood cells -Will need IV Lasix with this #Hx COPD -No wheezing, does not appear to be in exacerbation -Continue home inhalers -Incentive spirometry # GUZMAN on CKD stage IV -Creatinine 3.44 and 4 days ago was 2.43 -Will obtain kidney ultrasound -Will obtain FE urea -May be cardiorenal in nature, patient to receive IV Lasix -Monitor I's and O's -Given patient's worsening kidney function and delicate fluid balance as well as patient reporting decreased urine output will consult nephrology # Elevated troponin -Suspect secondary to patient's anemia and mild fluid overload -Not having chest pain -Do not think that this is primarily a cardiac problem -Trending troponin -Patient to be admitted to telemetry # History of CAD -On aspirin and statin, does not seem the patient has any kind of brisk bleed so we will continue aspirin with caution at this time while awaiting further results and workup -Will continue beta-greta at low-dose # History of severe carotid stenosis -On aspirin and statin #GERD -Patient be on IV PPI #Type 2 diabetes mellitus -Glucose checks and sliding scale insulin -Hold oral hypoglycemics #Hypothyroidism -Continue thyroid replacement #DVT ppx: SCDs pending anemia workup Jennifer Pardo MD Charges/Coding Visit Charges Inpatient E&M: 65214 Init Hosp L3
--- NOTE | 2023-12-06 17:24 | US_ITS ---
INDICATION: worsening kidney failure EXAMINATION: Ultrasound US Kidney(s) complete (eg, kidneys and bladder) TECHNIQUE: [place] scale and color doppler images were obtained of the kidneys. COMPARISON: FINDINGS: RIGHT KIDNEY: 10.3 x 4.5 x 5.7 cm. The cortex is 17 mm. There is no hydronephrosis. No shadowing calculus, focal lesion or perinephric collection is demonstrated. LEFT KIDNEY: 10.4 x 3.8 x 5.4 cm. The cortex is 14 mm. There is no hydronephrosis. No shadowing calculus or perinephric collection is demonstrated. 2.2 cm exophytic cyst. URINARY BLADDER: No acute abnormality. US/Kidney and Bladder IMPRESSION: Left renal cyst. Electronically Signed: Kevin Lockhart DO at 19:26 EDT ,
[2023-12-06 18:27] LABS: Bedside Glucose 267 mg/dL (74-106)
[2023-12-06] MEDS: Insulin Lispro 100 UNIT/ML INSULN.PEN SC ×2 (18:40→21:38)
[2023-12-06 19:04] LABS: Urea Nitrogen, Urine 625 mg/dL (NO RANGE EST.); Urine Chloride 15 mmol/L (Not Establ.); Urine Sodium 42 mmol/L (Not Establ.)
[2023-12-06 19:15] LABS: Troponin-I HS 2618 pg/mL (3.0-78.0)
[2023-12-06 21:20] LABS: Troponin-I HS 5240 pg/mL (3.0-78.0)
[2023-12-06] MEDS: Furosemide 40 MG/4 ML Vial IV (21:30)
[2023-12-06] MEDS: Metoprolol(XL)Succ 25 MG Tablet PO (21:30)
[2023-12-06] MEDS: Pantoprazole Sodium 40 MG in 0.9% Normal Saline (100mL MB+) 100 ML 330 MG IV (21:31)
--- NOTE | 2023-12-06 21:46 | PCM.HOSP.N ---
Hospitalist Note Troponin has uptrended, pt never had chest pain, suspect trop elevation is due to his anemia and initial hypoxia for EMS complicated by his renal failure causing difficulty clearing trop. Pt still without chest pain. Vitally stable. He has now received his blood and lasix, continue to monitor. If any chest pain were to develop stat trop and EKG.
[2023-12-06 22:24] LABS: Hemoglobin 7.8 g/dL (13.0-16.5)
[2023-12-06 23:11] LABS: Bedside Glucose 271 mg/dL (74-106)
[2023-12-07] VITALS (8 sets, daily range): BP systolic 110–138; BP diastolic 43–52; PULSE 96–105; RESP 18–26; TEMP 36.4; O2SAT 96–100; BMI 32.1
[2023-12-07] MEDS: Liothyronine 5 MCG Tablet 25 MCG PO (04:22)
[2023-12-07 05:05] LABS: Absolute Neutrophil Count 5.6 X10^3/uL (2.0-7.7); Basophil# 0.01 X10^3/uL; Basophil% 0.1 % (0-1); Eosinophil# 0.19 X10^3/uL; Eosinophils% 2.7 % (0-5); Hematocrit 25.2 % (40-54); Lymphocyte % 11.3 % (19-41); Mean Corp Hgb Conc 31.7 g/dL (32-36); Mean Corpuscular Hgb 30.4 pg (27.0-32.0); Mean Corpuscular Volume 95.8 fL (80-94); Mean Platelet Vol. 11.5 fl (6.2-12.0); Monocyte# 0.43 X10^3/uL; Monocyte% 6.1 % (0-10); NRBC Flagged by Analyzer 0 % (0-5); Neutrophil # 5.61 X10^3/uL (2.7-7.7); Neutrophil % 79.4 % (47-70); POSITIVE COUNT YES; Platelet Count 82 K/mm3 (150-450); RBC Distribution Width CV 14.8 % (11.6-14.6); Red Blood Count 2.63 M/mm3 (4.6-6.2); White Blood Count 7.1 K/mm3 (4.4-11.0)
[2023-12-07 05:45] LABS: ALB/GLOB Ratio 0.8 RATIO (0.9-2.4); AST(SGOT) 35 U/L (15-37); Alanine Aminotransfer ALT/SGPT 23 U/L (16-61); Albumin, Serum 2.9 g/dL (3.2-5.0); Alkaline Phosphatase 60 U/L (45-117); Anion Gap 6 (5-15); BUN 97 mg/dL (7-18); BUN/Creat Ratio 35.5 RATIO (10-20); Calcium,Total 8.7 mg/dL (8.5-10.1); Chloride 107 mmol/L (98-107); Creatinine, Serum 2.73 mg/dL (0.70-1.30); EST Glomerular Filtration Rate 24 mL/min (>60); Est Glom Filt Rate - Afr Amer 29 mL/min (>60); Estimated Creatinine Clearance 20.51 ml/min; Ferritin 37 ng/mL (26-388); Globulin 3.5 g/dL (2.2-4.2); Glucose 142 mg/dL (74-106); Iron 208 ug/dL (65-175); Iron Binding Capacity,Total 264 ug/dL (250-450); Magnesium 1.4 mg/dL (1.6-2.6); PERCENT IRON SATURATION 78.8 % (15.0-55.0); Potassium 4.4 mmol/L (3.5-5.1); Protein, Total 6.4 g/dL (6.4-8.2); Sodium Level 142 mmol/L (136-145)
[2023-12-07] MEDS: Ipratropium/Albuterol Sulfate 3 ML AMPUL.NEB INHALATION ×2 (07:32→19:05)
[2023-12-07 08:28] LABS: Bedside Glucose 136 mg/dL (74-106)
[2023-12-07] MEDS: 0.9% Saline Lock 10 ML Syringe IV ×2 (09:51→12:46)
[2023-12-07] MEDS: Pantoprazole Sodium 40 MG in 0.9% Normal Saline (100mL MB+) 100 ML 330 MG IV ×2 (09:51→21:49)
[2023-12-07] MEDS: Aspirin E.C. 81 MG Tablet PO (09:51)
[2023-12-07] MEDS: Atorvastatin Calcium 80 MG Tablet PO (09:51)
[2023-12-07] MEDS: Furosemide 40 MG/4 ML Vial IV (09:51)
[2023-12-07] MEDS: Insulin Lispro 100 UNIT/ML INSULN.PEN SC ×3 (11:59→21:49)
[2023-12-07] MEDS: Magnesium Sulfate 2 GM in Dextrose 5%-Water (100mL Bag) 100 ML IV (12:46)
--- NOTE | 2023-12-07 13:04 | PN.HOSP_ITS ---
Subjective Subjective Doing well, no issues overnight, denies any chest pain. Objective Data Objective Data Vital Signs: Vital Signs Temp Pulse Resp BP Pulse Ox O2 Del Method O2 Flow Rate 97.6 F L 101 H 18 120/46 L 99 Nasal Cannula 3 12/07/23 09:48 12/07/23 09:48 12/07/23 09:48 12/07/23 09:48 12/07/23 09:48 12/07/23 09:48 12/07/23 11:12 Oxygen Flow Rate (L/min) 3 Oxygen Delivery Method Nasal Cannula Weight: 193 lb 5.526 oz Body Mass Index (BMI) 32.1 Intake & Output: Intake and Output for Last 24 Hours 12/06/23 12/07/23 12/08/23 03:59 03:59 03:59 Intake Total 1211 / 1211 870 / 870 Output Total 875 / 875 825 / 825 Balance 336 / 336 45 / 45 Lab / Micro Data 12/07/23 04:15 12/07/23 04:15 Labs: Laboratory Results - last 24 hr 12/06/23 13:45: WBC 5.5, RBC 2.25 L, Hgb 6.8 L, Hct 21.9 L, MCV 97.3 H, MCH 30.2, MCHC 31.1 L, RDW Std Deviation 47.7 H, RDW Coeff of John 13.4, Plt Count 75 L, MPV 11.9, Immature Gran % (Auto) 0.400, Neut % (Auto) 78.4 H, Lymph % (Auto) 11.3 L, [place] % (Auto) 6.4, Eos % (Auto) 3.3, Baso % (Auto) 0.2, Absolute Neuts (auto) 4.3, Absolute Lymphs (auto) 0.62 L, Nucleated RBC % 0, Sodium 142, Potassium 4.0, Chloride 106, Carbon Dioxide 26.0, Anion Gap 10, BUN 101 H*, C reatinine 3.44 H, Estim Creat Clear Calc 16.67, Est GFR (MDRD) Af Amer 22 L, Est GFR (MDRD) Non-Af 18 L, BUN/Creatinine Ratio 29.4 H, Glucose 314 H, Calcium 8.1 L, Total Bilirubin 0.40, AST 12 L, ALT 19, Alkaline Phosphatase 67, Troponin I High Sens 146 H*, B-Natriuretic Peptide 149.9 H, Total Protein 6.3 L, Albumin 3.0 L, Globulin 3.3, Albumin/Globulin Ratio 0.9 12/06/23 15:00: Blood Type A NEGATIVE, Antibody Screen NEGATIVE, Crossmatch See Detail 12/06/23 17:56: POC Glucose 267 H 12/06/23 18:22: Troponin I High Sens 2618 H* 12/06/23 18:45: Ur Random Sodium 42, Urine Potassium 24.0, Urine Chloride 15, Urine Urea Nitrogen 625 12/06/23 20:56: Troponin I High Sens 5240 H* 12/06/23 21:37: POC Glucose 271 H 12/06/23 22:15: Hgb 7.8 L 12/07/23 04:15: WBC 7.1, RBC 2.63 L, Hgb 8.0 L, Hct 25.2 L, MCV 95.8 H, MCH 30.4, MCHC 31.7 L, RDW Std Deviation 52.0 H, RDW Coeff of John 14.8 H, Plt Count 82 L, MPV 11.5, Immature Gran % (Auto) 0.400, Neut % (Auto) 79.4 H, Lymph % (Auto) 11.3 L, [place] % (Auto) 6.1, Eos % (Auto) 2.7, Baso % (Auto) 0.1, Absolute Neuts (auto) 5.6, Absolute Lymphs (auto) 0.80 L, Nucleated RBC % 0, Sodium 142, Potassium 4.4, Chloride 107, Carbon Dioxide 29.0, Anion Gap 6, BUN 97 H, C reatinine 2.73 H, Estim Creat Clear Calc 20.51, Est GFR (MDRD) Af Amer 29 L, Est GFR (MDRD) Non-Af 24 L, BUN/Creatinine Ratio 35.5 H, Glucose 142 H, Calcium 8.7, Magnesium 1.4 L, Iron 208 H, TIBC 264, Iron Saturation 78.8 H, Ferritin 37, T otal Bilirubin 1.60 H, AST 35, ALT 23, Alkaline Phosphatase 60, Total Protein 6.4, Albumin 2.9 L, Globulin 3.5, Albumin/Globulin Ratio 0.8 L 12/07/23 07:56: POC Glucose 136 H Micro: Microbiology 12/06/23 14:05 Mucosa - Nose SARS-CoV-2, Influenza & RSV (PCR) - Final ABG Data ABG results: ABG 12/06/23 14:13 Specimen Type DAYANA Sample Site Not entered O2 % 3.0 VBG pH 7.38 VBG pO2 53 H VBG HCO3 25 VBG Total CO2 27 VBG O2 Sat (Calc) 87 H VBG Base Excess 0 POC Mix VBG pCO2 Pt Tmp 42.6 O2 Delivery Device Cannula Radiography Diagnostic Testing: Radiology Impression Chest X-Ray 12/06/23 14:18 IMPRESSION: Cardiomegaly. CHF. Electronically Signed: Ishaan La MD at 14:27 EDT , Renal Ultrasound 12/06/23 17:24 IMPRESSION: Left renal cyst. Electronically Signed: Kevin Lockhart DO at 19:26 EDT , Rhythm Strip Rhythm Strip: Sinus Tach Rate: 109 Ectopy: None Physical Exam Narrative General: Alert, Oriented x3, Cooperative, No apparent distress HEENT: Atraumatic, PERRLA, EOMI, Normocephalic Oral: Moist Mucosa Neck: Supple, No JVD Lungs: Diminished, Normal air movement, No rhonchi, No wheeze, No rales, basilar crackles Cardiovascular: Regular rate, Regular Rhythm, Normal S1, Normal S2, No murmurs Abdomen: Soft, Non Tender, Non-Distended, No Hepato-splenomegaly Extremities: Edema, Capillary Refill Less than 3 Seconds Skin: No rashes, No breakdown Musculoskeletal: No Tenderness to Palpation of Joints or Extremities Neurological: No focal neurological deficits, Motor Exam 5/5 strength throughout, Sensory exam intact to light touch and pain Psych/Mental Status: Normal Affect, Appropriate Assessment & Plan Assessment/Plan (1) Shortness of breath: PLAN: Plan 1. Increase shortness of breath in the setting of chronic hypoxic respiratory failure requiring 3 L from COPD/acute on chronic diastolic CHF exacerbation with an elevated troponin/GUZMAN on CKD 4 ? Unclear as to the etiology at this moment with the increased shortness of breath, he was hypoxic requiring a nonrebreather and did cause a bump in his troponins unclear if this is cardiac origin or related to his acute on chronic anemia ? Continue with PPI ? Awaiting a fecal occult ? Given the fact that his troponins did bump to 5000 will consult cardiology ? Does not appear peer to be in a COPD exacerbation ? Will obtain a renal ultrasound ? Continue with Lasix as his kidney function is improving significantly especially after the blood transfusion 2. Essential HTN/HLD/CAD ? Continue with his home blood pressure medications ? Continue with his home cholesterol medications ? Will monitor make adjustments as necessary 3. GERD with acute on chronic anemia ? Continue with PPI ? Fecal occult is pending 4. DM2 ? Hold his home medications ? Sign scale insulin ? Accu-Cheks ACHS ? Will monitor make adjustments as necessary 5. Hypothyroidism ? Stable ? Continue with Synthroid DVT: SCDs Charges/Coding Visit Charges Inpatient E&M: 71450 Subs Hosp L2
[2023-12-07 13:08] LABS: Bedside Glucose 200 mg/dL (74-106)
--- NOTE | 2023-12-07 14:22 | CHAPLAIN ---
Type of Pastoral Visit _x__ Initial Visit ___ Follow-up Visit ___ On-call Visit ___ General Patient Visit ___ Spiritual Assessment ___ Family Conference ___ Bereavement ___ Rapid Response ___ Code Blue ___ Other (describe below) Pastoral Care Referral From _x__ Patient ___ Family ___ Nurse ___ Physician ___ Hedis Nurse ___ Transporter Driver ___ Other (describe below) Sacrament/Intervention _x__ Active listening ___ Anointing ___ Christianity ___ Bereavement ___ Communion ___ Leigh exploration ___ _x__ Life review _x__ Prayer ___ Reconciliation ___ Sacrament of Sick _x__ Supportive presence ___ Wedding ___ Other (describe below) Pastoral Comments patient has been repeatedly in the hospital in recent weeks; pt admits to some frustrations over his inability to get well and be active; pt believes that he can still live alone with his condition; pt states that he gets lonely as only a nurse and my daughter come one time a week to see me; pt is talkative and gives his opinions; pt welcomes a prayer
--- NOTE | 2023-12-07 15:59 | ECHOLC_ITS ---
Reason For Study: NSTEMI Procedure This was a limited 2D transthoracic echocardiogram. Contrast injection was performed. Patient Scanned sitting upright due to SOB. Exam performed portable in patient room. Left Ventricle Normal left ventricle. The estimated ejection fraction is 50-55 %. Right Ventricle Normal right ventricle. Normal systolic function. Atria Normal left atrium. Normal right atrium. Mitral Valve There is mild to moderate mitral annular calcification. Trivial mitral valve insufficiency. Tricuspid Valve Normal tricuspid valve. Aortic Valve Trisinus/trileaflet aortic valve. Trivial aortic valve insufficiency. Pulmonic Valve The pulmonic valve is not well visualized. Great Vessels Normal aortic root. Medication Diluted definity 1.5ml given slow IV push to enhance endocardial definition. MMode/2D Measurements & Calculations LVIDd: 5.5 cm IVSd: 1.4 cm LVAd ap4: 38.6 cm2 LVIDs: 3.9 cm LVPWd: 1.1 cm LVLd ap4: 8.7 cm FS: 28.6 % EDV(MOD-sp4): 141.0 ml EDV(sp4-el): 145.1 ml LVAs ap4: 25.8 cm2 LVLs ap4: 7.9 cm ESV(MOD-sp4): 69.5 ml ESV(sp4-el): 71.4 ml EF(MOD-sp4): 50.7 % EF(sp4-el): 50.8 % LVAd ap2: 33.8 cm2 SV(MOD-sp4): 71.5 ml SV(MOD-sp2): 52.7 ml LVLd ap2: 9.2 cm EDV(MOD-sp2): 100.9 ml EDV(sp2-el): 105.6 ml LVAs ap2: 21.9 cm2 LVLs ap2: 8.3 cm ESV(MOD-sp2): 48.1 ml ESV(sp2-el): 49.3 ml EF(MOD-sp2): 52.3 % SV(sp4-el): 73.7 ml ECHO/Echo Limited w/Contrast Interpretation Summary The estimated ejection fraction is 50-55 %. Contrast Echo used Ordering Physician: Barber Martell Performed By: Ronald Casarez [facility]
[2023-12-07 16:36] LABS: Bedside Glucose 206 mg/dL (74-106)
--- NOTE | 2023-12-07 16:39 | CON.PCM.CA_ITS ---
<Statement entered by Barber Martell MD - 12/07/23 16:51> Pt seen & evaluated w/CLEMENTE. I personally interviewed & exam the pt. I was involved in all aspects of pt's orders, interpretation of results & treatment Assessment & Plan Assessment/Plan (1) Acute on chronic renal insufficiency: (2) Abnormal ECG: (3) Elevated troponin: (4) Shortness of breath: (5) History of COPD: (6) Chronic kidney disease: (7) Acute upper gastrointestinal bleeding: (8) Non-ST elevation (NSTEMI) myocardial infarction: PLAN: Cardiac care plan recommendation 83-year-old patient presented with symptoms of shortness of breath Has multiple medical comorbidities with longstanding history of COPD As cardiac catheterization in March [address] Blunt Has nonobstructive coronary disease. LV function preserved by echocardiogram in 2022 Now the presentation is progressive shortness of breath has been on nasal cannula and has been on diuretic Had CKD Symptomatic anemia requiring blood transfusion with upper GI bleed. Hypertension Diabetes mellitus. I review all the current evaluation in the hospital including the EKG with a series of cardiac markers Noted she had diffuse ST depression as well as significant elevated troponins With a clinical diagnosis of non-ST elevation VA High risk for anticoagulation due to upper GI bleed with symptomatic anemia requiring blood transfusion Will evaluate by echocardiogram to assess LV function Patient will be high risk for cardiac catheterization at this point we will discuss further plan based on his clinical progression. Barber Martell MD,[facility] HPI Consult Data Date of Consult: 12/07/23 HPI Narrative Reason for Consultation: Evaded troponins/shortness of breath/non-STEMI HPI Narrative: BEULAH BRIGHT, is a 83 M who presents [facility] Medical History COPD (chronic obstructive pulmonary disease) Loss of hearing No natural teeth Wears glasses Poor historian Thyroid disease Low iron High cholesterol Syncope History of GI bleed Shortness of breath on exertion History of echocardiogram Cardiology follow-up encounter Symptomatic anemia Diabetes Kidney disease Former smoker On home oxygen therapy TIA (transient ischemic attack) Myocardial infarct Hypertension Diastolic CHF Acute and chronic respiratory failure with hypoxia History of CAD (coronary artery disease) Nonrheumatic aortic (valve) stenosis Mild left ventricular hypertrophy History of left heart catheterization (LHC) (~03/15/22) Atherosclerotic heart disease of [place] coronary artery without angina pectoris Aortic valve stenosis, acquired CAD (coronary artery disease) COPD (chronic obstructive pulmonary disease) Polyarthralgia Diabetes mellitus, type 2 Former tobacco use Obesity Hypothyroidism HLD (hyperlipidemia) HTN (hypertension) Chronic respiratory failure with hypoxia Home Medications ?Medication ?Instructions ?Recorded ?Last Taken ?Type atorvastatin 80 mg tablet 80 mg PO DAILY CHOLESTEROL 05/02/21 12/05/23 History cholecalciferol (vitamin D3) 25 25 mcg PO DAILY vitamin 05/02/21 12/06/23 History mcg (1,000 unit) capsule ipratropium 0.5 mg-albuterol 3 mg 3 ml inhalation 4X/DAY PRN sob 05/02/21 11/18/23 History (2.5 mg base)/3 mL nebulization soln liothyronine 25 mcg tablet 25 mcg PO DAILY THYROID 05/02/21 12/06/23 History omega-3 fatty acids-vitamin E 2 cap PO BID SUPPLEMENT 05/02/21 11/18/23 History 1,000 mg capsule tiotropium bromide 18 mcg capsule 18 mcg inhalation DAILY SOB 05/02/21 11/17/23 History with inhalation device (Spiriva with HandiHaler) vitamins A,C,J-gsmk-otbpal 4,296 1 cap PO BID vitamin 12/13/21 12/06/23 History mcg-226 mg-90 mg capsule (PreserVision AREDS) glimepiride 2 mg tablet 2 mg PO DAILY DM #3 tabs 03/09/23 12/06/23 Rx empagliflozin 10 mg tablet 10 mg PO DAILY heart failure 30 04/26/23 12/06/23 Rx (Jardiance) days #30 tabs lisinopril 10 mg tablet 10 mg PO DAILY HTN 06/27/23 12/06/23 History metoprolol succinate 25 mg 25 mg PO DAILY heart 06/27/23 12/05/23 History tablet,extended release 24 hr pantoprazole 40 mg tablet,delayed 40 mg PO BID stomach 06/27/23 12/06/23 History release (Protonix) ferrous sulfate 325 mg (65 mg 325 mg PO BID supplement 11/14/23 12/06/23 History iron) tablet (FeroSul) aspirin 81 mg tablet,delayed 81 mg PO DAILY heart health 11/18/23 12/06/23 History release (Adult Aspirin Regimen) torsemide 10 mg tablet 40 mg (4 x 10 mg) PO DAILY 11/20/23 12/06/23 Rx diuretic 30 days #120 tabs Allergy/AdvReac Type Severity Reaction Status Date / Time aliskiren (From Valturna) Allergy Intermediate Other Verified 12/06/23 13:33 valsartan (From Valturna) Allergy Intermediate Other Verified 12/06/23 13:33 codeine AdvReac Upset Verified 12/06/23 13:33 Stomach Family History Mother CVA (cerebral vascular accident) Heart disease Myocardial infarction Hx of CABG Hypertension Father CVA (cerebral vascular accident) Heart disease Surgical History S/P cataract extraction Social History household members: none housing: house Smoking Status: Former smoker how long ago did patient quit smoking: Quit 2011, prior 1 ppd since teen. alcohol intake: former year quit: 2010 substance use type: does not use Physical Exam Cardio Cardio Narrative: Seen and evaluated at bedside along with the nursing staff Sitting out in a chair and oxygen nasal cannula cardiac monitor showed normal sinus Cardiac exam S1-S2 regular Chest exam diminished air entry bilateral with bilateral inspiratory rales. Examination lower extremity had +2 lower extremity edema Risk Stratification Risk Stratification Applicable: No Objective Data Vital Signs: Vital Signs Temp Pulse Resp BP Pulse Ox O2 Del Method O2 Flow Rate 97.5 F L 97 19 H 113/51 L 100 Nasal Cannula 3 12/07/23 15:12 12/07/23 15:12 12/07/23 15:12 12/07/23 15:12 12/07/23 15:12 12/07/23 15:12 12/07/23 15:12 Oxygen Flow Rate (L/min) 3 Oxygen Delivery Method Nasal Cannula Weight: 193 lb 5.526 oz Body Mass Index (BMI) 32.1 Intake & Output: Intake and Output for Last 24 Hours 12/05/23 12/06/23 12/07/23 23:59 23:59 23:59 Intake Total 851 / 1211 1334 / 1334 Output Total 175 / 875 1525 / 1525 Balance 676 / 336 -191 / -191 Lab / Micro Data 12/07/23 04:15 12/07/23 04:15 Labs: Laboratory Results - last 24 hr 12/06/23 15:00: Blood Type A NEGATIVE, Antibody Screen NEGATIVE, Crossmatch See Detail 12/06/23 17:56: POC Glucose 267 H 12/06/23 18:22: Troponin I High Sens 2618 H* 12/06/23 18:45: Ur Random Sodium 42, Urine Potassium 24.0, Urine Chloride 15, Urine Urea Nitrogen 625 12/06/23 20:56: Troponin I High Sens 5240 H* 12/06/23 21:37: POC Glucose 271 H 12/06/23 22:15: Hgb 7.8 L 12/07/23 04:15: WBC 7.1, RBC 2.63 L, Hgb 8.0 L, Hct 25.2 L, MCV 95.8 H, MCH 30.4, MCHC 31.7 L, RDW Std Deviation 52.0 H, RDW Coeff of John 14.8 H, Plt Count 82 L, MPV 11.5, Immature Gran % (Auto) 0.400, Neut % (Auto) 79.4 H, Lymph % (Auto) 11.3 L, [place] % (Auto) 6.1, Eos % (Auto) 2.7, Baso % (Auto) 0.1, Absolute Neuts (auto) 5.6, Absolute Lymphs (auto) 0.80 L, Nucleated RBC % 0, Sodium 142, Potassium 4.4, Chloride 107, Carbon Dioxide 29.0, Anion Gap 6, BUN 97 H, C reatinine 2.73 H, Estim Creat Clear Calc 20.51, Est GFR (MDRD) Af Amer 29 L, Est GFR (MDRD) Non-Af 24 L, BUN/Creatinine Ratio 35.5 H, Glucose 142 H, Calcium 8.7, Magnesium 1.4 L, Iron 208 H, TIBC 264, Iron Saturation 78.8 H, Ferritin 37, T otal Bilirubin 1.60 H, AST 35, ALT 23, Alkaline Phosphatase 60, Total Protein 6.4, Albumin 2.9 L, Globulin 3.5, Albumin/Globulin Ratio 0.8 L 09/27/24 07:56: POC Glucose 136 H 12/07/23 11:57: POC Glucose 200 H 12/07/23 16:17: POC Glucose 206 H Micro: Microbiology 12/06/23 14:05 Mucosa - Nose SARS-CoV-2, Influenza & RSV (PCR) - Final Rhythm Strip Rhythm Strip: Sinus Tach Rate: 109 Ectopy: None Cardiology Labs/Tests 12/06/23 22:15: Hgb 7.8 L 12/07/23 04:15: WBC 7.1, RBC 2.63 L, Hgb 8.0 L, Hct 25.2 L, MCV 95.8 H, MCH 30.4, MCHC 31.7 L, Plt Count 82 L, MPV 11.5, Immature Gran % (Auto) 0.400, Neut % (Auto) 79.4 H, Lymph % (Auto) 11.3 L, [place] % (Auto) 6.1, Eos % (Auto) 2.7, Baso % (Auto) 0.1, Absolute Neuts (auto) 5.6, Nucleated RBC % 0, Sodium 142, Potassium 4.4, Chloride 107, Carbon Dioxide 29.0, Anion Gap 6, BUN 97 H, C reatinine 2.73 H, Est GFR (MDRD) Af Amer 29 L, Est GFR (MDRD) Non-Af 24 L, B UN/Creatinine Ratio 35.5 H, Glucose 142 H, Calcium 8.7, Magnesium 1.4 L, Iron 208 H, TIBC 264, Iron Saturation 78.8 H, Ferritin 37, Total Bilirubin 1.60 H Rhythm: EKG: ECHO: Stress Test: Cardiac Cath: PCI: CT Surgery: Holter monitor: EPS: PPM: CXR: Chest CT Scan: Radiography Diagnostic Testing: Radiology Impression Renal Ultrasound 12/06/23 17:24 IMPRESSION: Left renal cyst. Electronically Signed: Kevin Lockhart DO at 19:26 EDT Reading Location ID and State: [facility] / [place] Tel [phone], Service support ,
--- NOTE | 2023-12-07 16:50 | CASEMGMT ---
ALMA RINALDI chart review: Patient was admitted 11/17-11/19 for COPD exacerbation, see assessment from 11/15/23. Patient was discharged maintaining on home oxygen, follow-up plans in place, and CCN. Patient returned to [facility] ED on 12/05 for increased SOB and was admitted Acute on chronic anemia with hgb of 6.8. Patient received 1 unit of PRBC and IV lasix. ALMA RINALDI in to discuss readmission and discharge planning with patient. Patient states that [facility] was out of one of his heart medications as it was back ordered and then had it transferred to [facility]. Patient has been seen by CCN. Patient states he is weighing himself daily and following low sodium diet. Patient wishes to return home with CCN. ALMA RINALDI discussed palliative care with patient and he is agreeable. Patient denies further needs at discharge. Hospitalist updated regarding request for palliative consult, awaiting order. Patient has [facility] oxygen at 2lpm at rest and 4lpm with exertion. Green sheet placed on chart. CM will continue to follow this patient and plan for a safe discharge.
--- NOTE | 2023-12-07 19:27 | CON.PCM.RE_ITS ---
Assessment & Plan Assessment/Plan (1) Acute on chronic renal insufficiency: PLAN: CKD stage 4. baseline cr around 2.1 to 2.4 or so. proteinuria 0.6 gm. renal US with no hydronephrosis. significantly elevated troponins. BNP is not significantly high despite elevated creatinine. hold diuretics for now HPI Consult Data Date of Consult: 12/07/23 HPI Narrative Reason for Consultation: GUZMAN HPI Narrative: BEULAH BRIGHT, is a 83 M who presents to the hospital with dyspnea. nephrology on consultation in view of GUZMAN. He is known to me from recent visit here. CKD 4 at baseline. fluctuates between 2.1 to 2.5. not much proteinuria. was sent home on diuretics. came in with dyspnea. troponins are significantly elevated. cardiology consult reviewed. [facility], [facility] Medical History COPD (chronic obstructive pulmonary disease) Loss of hearing No natural teeth Wears glasses Poor historian Thyroid disease Low iron High cholesterol Syncope History of GI bleed Shortness of breath on exertion History of echocardiogram Cardiology follow-up encounter Symptomatic anemia Diabetes Kidney disease Former smoker On home oxygen therapy TIA (transient ischemic attack) Myocardial infarct Hypertension Diastolic CHF Acute and chronic respiratory failure with hypoxia History of CAD (coronary artery disease) Nonrheumatic aortic (valve) stenosis Mild left ventricular hypertrophy History of left heart catheterization (LHC) (~03/15/22) Atherosclerotic heart disease of [place] coronary artery without angina pectoris Aortic valve stenosis, acquired CAD (coronary artery disease) COPD (chronic obstructive pulmonary disease) Polyarthralgia Diabetes mellitus, type 2 Former tobacco use Obesity Hypothyroidism HLD (hyperlipidemia) HTN (hypertension) Chronic respiratory failure with hypoxia Home Medications ?Medication ?Instructions ?Recorded ?Last Taken ?Type atorvastatin 80 mg tablet 80 mg PO DAILY CHOLESTEROL 05/02/21 12/05/23 History cholecalciferol (vitamin D3) 25 25 mcg PO DAILY vitamin 05/02/21 12/06/23 History mcg (1,000 unit) capsule ipratropium 0.5 mg-albuterol 3 mg 3 ml inhalation 4X/DAY PRN sob 05/02/21 11/18/23 History (2.5 mg base)/3 mL nebulization soln liothyronine 25 mcg tablet 25 mcg PO DAILY THYROID 05/02/21 12/06/23 History omega-3 fatty acids-vitamin E 2 cap PO BID SUPPLEMENT 05/02/21 11/18/23 History 1,000 mg capsule tiotropium bromide 18 mcg capsule 18 mcg inhalation DAILY SOB 05/02/21 11/17/23 History with inhalation device (Spiriva with HandiHaler) vitamins A,C,O-fpig-meaucj 4,296 1 cap PO BID vitamin 12/13/21 12/06/23 History mcg-226 mg-90 mg capsule (PreserVision AREDS) glimepiride 2 mg tablet 2 mg PO DAILY DM #3 tabs 03/09/23 12/06/23 Rx empagliflozin 10 mg tablet 10 mg PO DAILY heart failure 30 04/26/23 12/06/23 Rx (Jardiance) days #30 tabs lisinopril 10 mg tablet 10 mg PO DAILY HTN 06/27/23 12/06/23 History metoprolol succinate 25 mg 25 mg PO DAILY heart 06/27/23 12/05/23 History tablet,extended release 24 hr pantoprazole 40 mg tablet,delayed 40 mg PO BID stomach 06/27/23 12/06/23 History release (Protonix) ferrous sulfate 325 mg (65 mg 325 mg PO BID supplement 11/14/23 12/06/23 History iron) tablet (FeroSul) aspirin 81 mg tablet,delayed 81 mg PO DAILY heart health 11/18/23 12/06/23 History release (Adult Aspirin Regimen) torsemide 10 mg tablet 40 mg (4 x 10 mg) PO DAILY 11/20/23 12/06/23 Rx diuretic 30 days #120 tabs Allergy/AdvReac Type Severity Reaction Status Date / Time aliskiren (From Valturna) Allergy Intermediate Other Verified 12/06/23 13:33 valsartan (From Valturna) Allergy Intermediate Other Verified 12/06/23 13:33 codeine AdvReac Upset Verified 12/06/23 13:33 Stomach Family History Mother CVA (cerebral vascular accident) Heart disease Myocardial infarction Hx of CABG Hypertension Father CVA (cerebral vascular accident) Heart disease Surgical History S/P cataract extraction Social History household members: none housing: house Smoking Status: Former smoker how long ago did patient quit smoking: Quit 2011, prior 1 ppd since teen. alcohol intake: former year quit: 2010 substance use type: does not use ROS ROS Narrative negative except above Physical Exam Narrative Alert awake oriented x 3 no obvious distress no pallor no icterus no JVD s1s2 no murmurs lungs clear abdomen soft no organomegaly no edema no cyanosis Lab / Micro Data 12/07/23 04:15 12/07/23 04:15 Labs: Laboratory Results - last 24 hr 12/06/23 15:00: Crossmatch See Detail 12/06/23 20:56: Troponin I High Sens 5240 H* 12/06/23 21:37: POC Glucose 271 H 12/06/23 22:15: Hgb 7.8 L 12/07/23 04:15: WBC 7.1, RBC 2.63 L, Hgb 8.0 L, Hct 25.2 L, MCV 95.8 H, MCH 30.4, MCHC 31.7 L, RDW Std Deviation 52.0 H, RDW Coeff of John 14.8 H, Plt Count 82 L, MPV 11.5, Immature Gran % (Auto) 0.400, Neut % (Auto) 79.4 H, Lymph % (Auto) 11.3 L, [place] % (Auto) 6.1, Eos % (Auto) 2.7, Baso % (Auto) 0.1, Absolute Neuts (auto) 5.6, Absolute Lymphs (auto) 0.80 L, Nucleated RBC % 0, Sodium 142, Potassium 4.4, Chloride 107, Carbon Dioxide 29.0, Anion Gap 6, BUN 97 H, C reatinine 2.73 H, Estim Creat Clear Calc 20.51, Est GFR (MDRD) Af Amer 29 L, Est GFR (MDRD) Non-Af 24 L, BUN/Creatinine Ratio 35.5 H, Glucose 142 H, Calcium 8.7, Magnesium 1.4 L, Iron 208 H, TIBC 264, Iron Saturation 78.8 H, Ferritin 37, T otal Bilirubin 1.60 H, AST 35, ALT 23, Alkaline Phosphatase 60, Total Protein 6.4, Albumin 2.9 L, Globulin 3.5, Albumin/Globulin Ratio 0.8 L 12/07/23 07:56: POC Glucose 136 H 12/07/23 11:57: POC Glucose 200 H 12/07/23 16:17: POC Glucose 206 H Rhythm Strip Rhythm Strip: Sinus Tach Rate: 109 Ectopy: None Imaging Radiology Impression Renal Ultrasound 12/06/23 17:24 IMPRESSION: Left renal cyst. Electronically Signed: Kevin Lockhart DO at 19:26 EDT Reading Location ID and State: [facility] / [place] Tel [phone], Service support ,
[2023-12-07] MEDS: Metoprolol(XL)Succ 25 MG Tablet PO (21:48)
[2023-12-07 22:14] LABS: Bedside Glucose 202 mg/dL (74-106)
[2023-12-08] VITALS (14 sets, daily range): BP systolic 98–130; BP diastolic 39–104; PULSE 79–106; RESP 16–28; TEMP 36.5–37; O2SAT 90–100; BMI 32.1
[2023-12-08] MEDS: Liothyronine 5 MCG Tablet 25 MCG PO (06:40)
[2023-12-08 06:54] LABS: Bedside Glucose 131 mg/dL (74-106)
[2023-12-08 07:33] LABS: Absolute Neutrophil Count 3.5 X10^3/uL (2.0-7.7); Basophil# 0.03 X10^3/uL; Basophil% 0.6 % (0-1); Eosinophil# 0.26 X10^3/uL; Eosinophils% 4.9 % (0-5); Hematocrit 24.1 % (40-54); Hemoglobin 7.6 g/dL (13.0-16.5); Lymphocyte % 20.7 % (19-41); Mean Corp Hgb Conc 31.5 g/dL (32-36); Mean Corpuscular Hgb 30.4 pg (27.0-32.0); Mean Corpuscular Volume 96.4 fL (80-94); Mean Platelet Vol. 11.6 fl (6.2-12.0); Monocyte% 7.5 % (0-10); NRBC Flagged by Analyzer 0 % (0-5); Neutrophil # 3.52 X10^3/uL (2.7-7.7); Neutrophil % 66.1 % (47-70); POSITIVE COUNT YES; Platelet Count 75 K/mm3 (150-450); RBC Distribution Width CV 14.5 % (11.6-14.6); RBC Distribution Width SD 50.3 fl (35.1-43.9); White Blood Count 5.3 K/mm3 (4.4-11.0)
[2023-12-08 07:38] LABS: Differential Indicated SCAN CRITERIA MET
[2023-12-08 07:45] LABS: Anion Gap 5 (5-15); BUN 99 mg/dL (7-18); BUN/Creat Ratio 43.2 RATIO (10-20); Calcium,Total 8.9 mg/dL (8.5-10.1); Chloride 107 mmol/L (98-107); Creatinine, Serum 2.29 mg/dL (0.70-1.30); EST Glomerular Filtration Rate 29 mL/min (>60); Est Glom Filt Rate - Afr Amer 35 mL/min (>60); Estimated Creatinine Clearance 24.45 ml/min; Glucose 142 mg/dL (74-106); Magnesium 2.1 mg/dL (1.6-2.6); Phosphorus 3.5 mg/dL (2.5-4.9); Potassium 4.8 mmol/L (3.5-5.1); Sodium Level 139 mmol/L (136-145)
[2023-12-08] MEDS: Albuterol 2.5 MG/3 ML VIAL.NEB. INHALATION ×2 (08:09→23:20)
[2023-12-08 08:23] LABS: Anisocytosis 2+; Differential Comment SCANNED; Platelet Estimate MOD DEC (ADEQ)
[2023-12-08 08:24] LABS: Hypochromasia 1+; Microcytosis 1+; Ovalocyte 2+; Polychromasia 1+
[2023-12-08 08:25] LABS: Tear Drop Cell RARE
--- NOTE | 2023-12-08 09:09 | CASEMGMT ---
Pt screened with [facility] palliative care screening tool. PT met criteria, order received. Email sent to palliative care.
[2023-12-08] MEDS: Pantoprazole Sodium 40 MG in 0.9% Normal Saline (100mL MB+) 100 ML 330 MG IV ×2 (09:35→22:43)
[2023-12-08] MEDS: Aspirin E.C. 81 MG Tablet PO (09:35)
[2023-12-08] MEDS: Menthol/Lanolin/Calamine/Znox 113 GM Tube TOPICAL (09:35)
[2023-12-08] MEDS: Atorvastatin Calcium 80 MG Tablet PO (09:36)
[2023-12-08] MEDS: Insulin Lispro 100 UNIT/ML INSULN.PEN SC ×3 (12:36→23:11)
[2023-12-08 12:57] LABS: Bedside Glucose 220 mg/dL (74-106)
[2023-12-08] MEDS: Ipratropium/Albuterol Sulfate 3 ML AMPUL.NEB INHALATION ×2 (13:46→19:20)
--- NOTE | 2023-12-08 15:34 | PCM.PN.REN ---
Subjective Subjective No new complaints today. He says breathing is at baseline. Objective Data Objective Data Vital Signs: Vital Signs Temp Pulse Resp BP Pulse Ox O2 Del Method O2 Flow Rate 98.0 F 80 26 H 114/43 L 100 Nasal Cannula 3 12/08/23 09:31 12/08/23 13:46 12/08/23 13:46 12/08/23 09:31 12/08/23 09:31 12/08/23 09:31 12/08/23 09:31 Oxygen Flow Rate (L/min) 3 Oxygen Delivery Method Nasal Cannula Weight: 87.7 kg Body Mass Index (BMI) 32.1 Intake & Output: Intake and Output for Last 24 Hours 12/06/23 12/07/23 12/08/23 23:59 23:59 23:59 Intake Total 851 / 1211 1744 / 1894 360 / 360 Output Total 175 / 875 2025 / 2625 1400 / 1400 Balance 676 / 336 -281 / -731 -1040 / -1040 Lab / Micro Data 12/08/23 07:18 12/08/23 07:18 Labs: Laboratory Results - last 24 hr 12/07/23 16:17: POC Glucose 206 H 12/07/23 21:43: POC Glucose 202 H 12/08/23 06:25: POC Glucose 131 H 12/08/23 07:18: WBC 5.3, RBC 2.50 L, Hgb 7.6 L, Hct 24.1 L, MCV 96.4 H, MCH 30.4, MCHC 31.5 L, RDW Std Deviation 50.3 H, RDW Coeff of John 14.5, Plt Count 75 L, MPV 11.6, Immature Gran % (Auto) 0.200, Neut % (Auto) 66.1, Lymph % (Auto) 20.7, [place] % (Auto) 7.5, Eos % (Auto) 4.9, Baso % (Auto) 0.6, Absolute Neuts (auto) 3.5, Absolute Lymphs (auto) 1.10, Nucleated RBC % 0, Differential Comment SCANNED, Platelet Estimate MOD DEC, Polychromasia 1+, Hypochromasia 1+, Anisocytosis 2+, Microcytosis 1+, Tear Drop Cells RARE, Ovalocytes 2+, Sodium 139, Potassium 4.8, Chloride 107, Carbon Dioxide 27.0, Anion Gap 5, BUN 99 H, Creatinine 2.29 H, Estim Creat Clear Calc 24.45, Est GFR (MDRD) Af Amer 35 L, Est GFR (MDRD) Non-Af 29 L, BUN/Creatinine Ratio 43.2 H, Glucose 142 H, Calcium 8.9, Phosphorus 3.5, Magnesium 2.1 12/08/23 12:32: POC Glucose 220 H Micro: Microbiology 12/06/23 14:05 Mucosa - Nose SARS-CoV-2, Influenza & RSV (PCR) - Final Radiography Diagnostic Testing: Radiology Impression Echocardiogram 12/07/23 15:59 Interpretation Summary The estimated ejection fraction is 50-55 %. Contrast Echo used Ordering Physician: Barber Martell Performed By: Ronald Casarez RCS Rhythm Strip Rhythm Strip: Sinus Tach Rate: 109 Ectopy: None Physical Exam Narrative Alert awake oriented x 3 no obvious distress no pallor no icterus no JVD s1s2 no murmurs lungs clear abdomen soft no organomegaly no edema no cyanosis Assessment & Plan Assessment/Plan (1) Acute on chronic renal insufficiency: PLAN: CKD stage 4. baseline cr around 2.1 to 2.4 or so. proteinuria 0.6 gm. renal US with no hydronephrosis. significantly elevated troponins. BNP is not significantly high despite elevated creatinine. GUZMAN is likely related to cardiorenal syndrome. Creatinine is now closer to baseline. Elevated troponins, cardiology on consult now Anemia. GI on consult, likely endoscopy on Sunday
[2023-12-08 17:52] LABS: Bedside Glucose 176 mg/dL (74-106)
--- NOTE | 2023-12-08 18:38 | PN.HOSP_ITS ---
Reason for Visit Reason for Visit: Diagnoses Non-ST elevation (NSTEMI) myocardial infarction (12/06/23) Gastrointestinal hemorrhage, unspecified (12/06/23) Chronic kidney disease, unspecified (12/06/23) Disorder of kidney and ureter, unspecified (12/06/23) Shortness of breath (12/06/23) Other specified abnormal findings of blood chemistry (12/06/23) Abnormal electrocardiogram [ECG] [EKG] (12/06/23) Personal history of other diseases of the respiratory system (12/06/23) Subjective Subjective Patient was seen and examined today, his hemoglobin today was 7.6, I elected to transfuse 2 units of packed red blood cells due to his history of pulmonary problems. I discussed with the patient the need to perform an endoscopy to rule out any pathology, he has not had a colonoscopy in several years. Patient has agreed to undergo colonoscopy and I talked with gastroenterology about this today and the plan is for the patient to undergo an EGD and colonoscopy on Sunday. Patient's creatinine has improved, he has not received Lasix today, I will give him a dose of Lasix in between transfused units today. Patient is currently on 2 L of oxygen via nasal cannula. Objective Data Objective Data Vital Signs: Vital Signs Temp Pulse Resp BP Pulse Ox O2 Del Method O2 Flow Rate 98.5 F 96 20 H 199/44 H 100 Nasal Cannula 2 12/08/23 18:25 12/08/23 18:25 12/08/23 18:25 12/08/23 18:25 12/08/23 18:25 12/08/23 18:25 12/08/23 18:25 Oxygen Flow Rate (L/min) 2 Oxygen Delivery Method Nasal Cannula Weight: 87.7 kg Body Mass Index (BMI) 32.1 Intake & Output: Intake and Output for Last 24 Hours 12/06/23 12/07/23 12/08/23 23:59 23:59 23:59 Intake Total 851 / 1211 1744 / 1894 1010 / 1010 Output Total 175 / 875 2024 / 5 2099 / 2099 Balance 676 / 336 -281 / -731 -1090 / -1090 Lab / Micro Data 12/09/23 05:25 12/09/23 05:25 Labs: Laboratory Results - last 24 hr 12/06/23 15:00: Crossmatch See Detail 12/07/23 21:43: POC Glucose 202 H 12/08/23 06:25: POC Glucose 131 H 12/08/23 07:18: WBC 5.3, RBC 2.50 L, Hgb 7.6 L, Hct 24.1 L, MCV 96.4 H, MCH 30.4, MCHC 31.5 L, RDW Std Deviation 50.3 H, RDW Coeff of John 14.5, Plt Count 75 L, MPV 11.6, Immature Gran % (Auto) 0.200, Neut % (Auto) 66.1, Lymph % (Auto) 20.7, [place] % (Auto) 7.5, Eos % (Auto) 4.9, Baso % (Auto) 0.6, Absolute Neuts (auto) 3.5, Absolute Lymphs (auto) 1.10, Nucleated RBC % 0, Differential Comment SCANNED, Platelet Estimate MOD DEC, Polychromasia 1+, Hypochromasia 1+, Anisocytosis 2+, Microcytosis 1+, Tear Drop Cells RARE, Ovalocytes 2+, Sodium 139, Potassium 4.8, Chloride 107, Carbon Dioxide 27.0, Anion Gap 5, BUN 99 H, C reatinine 2.29 H, Estim Creat Clear Calc 24.45, Est GFR (MDRD) Af Amer 35 L, Est GFR (MDRD) Non-Af 29 L, BUN/Creatinine Ratio 43.2 H, Glucose 142 H, Calcium 8.9, Phosphorus 3.5, Magnesium 2.1 12/08/23 12:32: POC Glucose 220 H 12/08/23 15:47: POC Glucose 176 H Micro: Microbiology 12/06/23 14:05 Mucosa - Nose SARS-CoV-2, Influenza & RSV (PCR) - Final Radiography Diagnostic Testing: Radiology Impression Echocardiogram 12/07/23 15:59 Interpretation Summary The estimated ejection fraction is 50-55 %. Contrast Echo used Ordering Physician: Barber Martell Performed By: Ronald Casarez RCS Rhythm Strip Rhythm Strip: Sinus Tach Rate: 109 Ectopy: None Physical Exam Const alert, oriented x3, no apparent distress and healthy appearing General Appearance: cooperative, well kempt and well developed Orientation / Consciousness: awake, oriented to person, oriented to place and oriented to time HEENT normocephalic, head/scalp atraumatic and moist oral mucous membranes Eyes PERRL, EOMs intact bilaterally and conjunctivae normal Neck supple, no JVD and thyroid normal General: trachea midline Resp normal respiratory effort, no retractions, no use of accessory muscles and clear to auscultation bilaterally Auscultation: Negative for rales, rhonchi or wheezes Cardio regular rate, regular rhythm, S1 normal heart sound, S2 normal heart sound, no murmurs, no rub and no gallops GI normal to inspection, nondistended, normoactive bowel sounds, soft to palpation, non-tender and non-distended Extremity no clubbing, cyanosis or edema Skin no rashes or lesions noted General Skin Exam: no breakdown Neuro oriented x3, CN's II-XII intact bilaterally, no focal motor deficits and no sensory deficits noted Sensorium / Orientation: awake and alert Speech: speech normal Psych affect normal Assessment & Plan Assessment/Plan (1) Shortness of breath: PLAN: Plan 1. Acute on chronic heart failure with preserved ejection fraction-patient's Lasix is being held presently due to an elevated creatinine on admission, I will give the patient a dose of Lasix between his units of packed red blood cells today and reevaluate the need for continued IV Lasix tomorrow. #2 acute on chronic symptomatic anemia requiring blood transfusion-I have elected to transfuse patient 2 units packed red blood cells today and repeat the CBC in the morning. Patient will have a workup to exclude GI source of anemia by gastroenterology including an EGD and colonoscopy on Sunday. #3 hypoxia on a backdrop of chronic hypoxic respiratory failure-patient is on home oxygen chronically, his oxygen requirement today was 3 L at rest, patient will need to be ambulated prior to discharge to see if he requires a higher oxygen setting at home #4 elevated troponin secondary to demand ischemia-no cardiac workup is indicated at this time, patient's ejection fraction on his echocardiogram is 50 to 55% #5 chronic obstructive pulmonary disease-complicates care, management, recovery, and prognosis #6 acute kidney injury on a backdrop of chronic kidney disease stage IIIb- patient's creatinine is improved, and will be monitored as indicated, nephrology is participating in his care Total clinical time spent by myself addressing the patient's medical issues, reviewing all of his data, and collaborating with patient's care team: 50 minutes Charges/Coding Visit Charges Inpatient E&M: 08940 Subs Hosp L3
[2023-12-08] MEDS: Furosemide 40 MG/4 ML Vial IV (22:42)
[2023-12-08] MEDS: Metoprolol(XL)Succ 25 MG Tablet PO (23:05)
[2023-12-08 23:36] LABS: Bedside Glucose 182 mg/dL (74-106)
[2023-12-09] VITALS (16 sets, daily range): BP systolic 95–148; BP diastolic 42–83; PULSE 83–105; RESP 18–100; TEMP 35.9–36.9; O2SAT 94–100; BMI 32.1
[2023-12-09] MEDS: 0.9% Saline Lock 10 ML Syringe IV ×2 (04:27→20:32)
[2023-12-09 05:44] LABS: Absolute Neutrophil Count 4.5 X10^3/uL (2.0-7.7); Basophil# 0.03 X10^3/uL; Basophil% 0.5 % (0-1); Eosinophil# 0.29 X10^3/uL; Eosinophils% 4.6 % (0-5); Hemoglobin 9.3 g/dL (13.0-16.5); Lymphocyte % 15.9 % (19-41); Mean Corp Hgb Conc 32.1 g/dL (32-36); Mean Corpuscular Hgb 30.2 pg (27.0-32.0); Mean Corpuscular Volume 94.2 fL (80-94); Mean Platelet Vol. 11.2 fl (6.2-12.0); Monocyte# 0.42 X10^3/uL; Monocyte% 6.7 % (0-10); NRBC Flagged by Analyzer 0 % (0-5); Neutrophil # 4.53 X10^3/uL (2.7-7.7); POSITIVE COUNT YES; Platelet Count 88 K/mm3 (150-450); RBC Distribution Width CV 14.2 % (11.6-14.6); RBC Distribution Width SD 47.8 fl (35.1-43.9); Red Blood Count 3.08 M/mm3 (4.6-6.2); White Blood Count 6.3 K/mm3 (4.4-11.0)
[2023-12-09] MEDS: Electrolyte Solution/Peg's 4000 ML 2000 ML PO ×2 (06:12→13:00)
[2023-12-09] MEDS: Liothyronine 5 MCG Tablet 25 MCG PO (06:13)
[2023-12-09] MEDS: Insulin Lispro 100 UNIT/ML INSULN.PEN SC ×2 (06:17→16:42)
[2023-12-09 06:24] LABS: Anion Gap 7 (5-15); BUN 107 mg/dL (7-18); BUN/Creat Ratio 48.6 RATIO (10-20); Calcium,Total 9.3 mg/dL (8.5-10.1); Chloride 107 mmol/L (98-107); EST Glomerular Filtration Rate 30 mL/min (>60); Est Glom Filt Rate - Afr Amer 37 mL/min (>60); Estimated Creatinine Clearance 25.45 ml/min; Glucose 191 mg/dL (74-106); Potassium 4.9 mmol/L (3.5-5.1); Sodium Level 140 mmol/L (136-145)
[2023-12-09 06:41] LABS: Bedside Glucose 161 mg/dL (74-106)
[2023-12-09] MEDS: Ipratropium/Albuterol Sulfate 3 ML AMPUL.NEB INHALATION ×3 (07:29→19:55)
[2023-12-09] MEDS: Atorvastatin Calcium 80 MG Tablet PO (09:53)
[2023-12-09] MEDS: Aspirin E.C. 81 MG Tablet PO (09:53)
[2023-12-09] MEDS: Menthol/Lanolin/Calamine/Znox 113 GM Tube TOPICAL ×2 (09:54→20:32)
[2023-12-09] MEDS: Pantoprazole Sodium 40 MG in 0.9% Normal Saline (100mL MB+) 100 ML 330 MG IV ×2 (09:54→20:33)
[2023-12-09 12:23] LABS: Bedside Glucose 140 mg/dL (74-106)
--- NOTE | 2023-12-09 13:39 | PN.HOSP_ITS ---
Reason for Visit Reason for Visit: Diagnoses Non-ST elevation (NSTEMI) myocardial infarction (12/06/23) Gastrointestinal hemorrhage, unspecified (12/06/23) Chronic kidney disease, unspecified (12/06/23) Disorder of kidney and ureter, unspecified (12/06/23) Shortness of breath (12/06/23) Other specified abnormal findings of blood chemistry (12/06/23) Abnormal electrocardiogram [ECG] [EKG] (12/06/23) Personal history of other diseases of the respiratory system (12/06/23) Subjective Subjective Patient was seen and examined today, his hemoglobin this morning was 9.3, he remains on 2 L of oxygen via nasal cannula at this time. Patient is prepping for colonoscopy tomorrow. Objective Data Objective Data Vital Signs: Vital Signs Temp Pulse Resp BP Pulse Ox O2 Del Method O2 Flow Rate 97.6 F L 83 18 135/44 H 100 Nasal Cannula 2 12/09/23 08:50 12/09/23 13:25 12/09/23 13:25 12/09/23 08:50 12/09/23 08:50 12/09/23 10:00 12/09/23 10:00 Oxygen Flow Rate (L/min) 2 Oxygen Delivery Method Nasal Cannula Weight: 87.7 kg Body Mass Index (BMI) 32.1 Intake & Output: Intake and Output for Last 24 Hours 12/07/23 12/08/23 12/09/23 23:59 23:59 23:59 Intake Total 1744 / 1894 1640 / 1760 470 / 470 Output Total 2025 / 2625 2300 / 2975 1650 / 1650 Balance -281 / -731 -660 / -1215 -1180 / -1180 Lab / Micro Data 12/09/23 05:25 12/09/23 05:25 Labs: Laboratory Results - last 24 hr 12/06/23 15:00: Crossmatch See Detail 12/08/23 15:47: POC Glucose 176 H 12/08/23 23:10: POC Glucose 182 H 12/09/23 05:25: WBC 6.3, RBC 3.08 L, Hgb 9.3 L, Hct 29.0 L, MCV 94.2 H, MCH 30.2, MCHC 32.1, RDW Std Deviation 47.8 H, RDW Coeff of John 14.2, Plt Count 88 L , MPV 11.2, Immature Gran % (Auto) 0.300, Neut % (Auto) 72.0 H, Lymph % (Auto) 15.9 L, [place] % (Auto) 6.7, Eos % (Auto) 4.6, Baso % (Auto) 0.5, Absolute Neuts (auto) 4.5, Absolute Lymphs (auto) 1.00, Nucleated RBC % 0, Sodium 140, Potassium 4.9, Chloride 107, Carbon Dioxide 26.0, Anion Gap 7, BUN 107 H*, C reatinine 2.20 H, Estim Creat Clear Calc 25.45, Est GFR (MDRD) Af Amer 37 L, Est GFR (MDRD) Non-Af 30 L, BUN/Creatinine Ratio 48.6 H, Glucose 191 H, Calcium 9.3 12/09/23 06:16: POC Glucose 161 H 12/09/23 11:46: POC Glucose 140 H Micro: Microbiology 12/08/23 19:17 Stool Stool Occult Blood ([facility]) - Final Occult Blood Positive 12/06/23 14:05 Mucosa - Nose SARS-CoV-2, Influenza & RSV (PCR) - Final Rhythm Strip Rhythm Strip: Sinus Tach Rate: 109 Ectopy: None Physical Exam Narrative alert, oriented x3, no apparent distress and healthy appearing General Appearance: cooperative, well kempt and well developed Orientation / Consciousness: awake, oriented to person, oriented to place and oriented to time HEENT normocephalic, head/scalp atraumatic and moist oral mucous membranes Eyes PERRL, EOMs intact bilaterally and conjunctivae normal Neck supple, no JVD and thyroid normal General: trachea midline Resp normal respiratory effort, no retractions, no use of accessory muscles and clear to auscultation bilaterally Auscultation: Negative for rales, rhonchi or wheezes Cardio regular rate, regular rhythm, S1 normal heart sound, S2 normal heart sound, no murmurs, no rub and no gallops GI normal to inspection, nondistended, normoactive bowel sounds, soft to palpation, non-tender and non-distended Extremity no clubbing, cyanosis or edema Skin no rashes or lesions noted General Skin Exam: no breakdown Neuro oriented x3, CN's II-XII intact bilaterally, no focal motor deficits and no sensory deficits noted Sensorium / Orientation: awake and alert Speech: speech normal Psych affect normal Assessment & Plan Assessment/Plan (1) Acute on chronic renal insufficiency: (2) Shortness of breath: PLAN: Plan 1. Acute on chronic heart failure with preserved ejection fraction-patient's Lasix is being held presently due to an elevated creatinine on admission, patient's creatinine today was 2.2, I will recheck BMP tomorrow #2 acute on chronic symptomatic anemia requiring blood transfusion-patient will undergo endoscopy tomorrow, CBC will be repeated in the morning #3 hypoxia on a backdrop of chronic hypoxic respiratory failure-patient is on home oxygen chronically, his oxygen requirement today was 2 L at rest, patient will need to be ambulated prior to discharge to see if he requires a higher oxygen setting at home #4 elevated troponin secondary to demand ischemia-no cardiac workup is indicated at this time, patient's ejection fraction on his echocardiogram is 50 to 55% #5 chronic obstructive pulmonary disease-complicates care, management, recovery, and prognosis #6 acute kidney injury on a backdrop of chronic kidney disease stage IIIb- patient's creatinine is improved, and will be monitored as indicated, nephrology is participating in his care Total clinical time spent by myself addressing the patient's medical issues, reviewing all of his data, and collaborating with patient's care team: 35 minutes Charges/Coding Visit Charges Inpatient E&M: 18222 Subs Hosp L2
--- NOTE | 2023-12-09 17:20 | PN.CARD_ITS ---
Subjective Subjective Patient seen and evaluated today at bedside along with the nursing staff He was sitting out in a chair Comfortable does not have any symptoms of chest pain. He refused further cardiac evaluation, refused to have repeat blood test for troponins and cardiac catheterization. His symptoms of shortness of breath is improving. He agreed for colonoscopy which is a high risk due to significant elevated troponins with non-ST elevation ME. Objective Data Vital Signs: Vital Signs Temp Pulse Resp BP Pulse Ox O2 Del Method O2 Flow Rate 97 F L 97 18 144/68 H 100 Nasal Cannula 2 12/09/23 16:43 12/09/23 16:43 12/09/23 16:43 12/09/23 16:43 12/09/23 16:43 12/09/23 16:43 12/09/23 16:43 Oxygen Flow Rate (L/min) 2 Oxygen Delivery Method Nasal Cannula Weight: 193 lb 5.526 oz Body Mass Index (BMI) 32.1 Intake & Output: Intake and Output for Last 24 Hours 12/07/23 12/08/23 12/09/23 23:59 23:59 23:59 Intake Total 1744 / 1894 1640 / 1760 470 / 470 Output Total 2025 / 2625 2300 / 2975 1850 / 1850 Balance -281 / -731 -660 / -1215 -1380 / -1380 Lab / Micro Data 12/09/23 05:25 12/09/23 05:25 Labs: Laboratory Results - last 24 hr 12/06/23 15:00: Crossmatch See Detail 12/08/23 15:47: POC Glucose 176 H 12/08/23 23:10: POC Glucose 182 H 12/09/23 05:25: WBC 6.3, RBC 3.08 L, Hgb 9.3 L, Hct 29.0 L, MCV 94.2 H, MCH 30.2, MCHC 32.1, RDW Std Deviation 47.8 H, RDW Coeff of John 14.2, Plt Count 88 L , MPV 11.2, Immature Gran % (Auto) 0.300, Neut % (Auto) 72.0 H, Lymph % (Auto) 15.9 L, [place] % (Auto) 6.7, Eos % (Auto) 4.6, Baso % (Auto) 0.5, Absolute Neuts (auto) 4.5, Absolute Lymphs (auto) 1.00, Nucleated RBC % 0, Sodium 140, Potassium 4.9, Chloride 107, Carbon Dioxide 26.0, Anion Gap 7, BUN 107 H*, C reatinine 2.20 H, Estim Creat Clear Calc 25.45, Est GFR (MDRD) Af Amer 37 L, Est GFR (MDRD) Non-Af 30 L, BUN/Creatinine Ratio 48.6 H, Glucose 191 H, Calcium 9.3 12/09/23 06:16: POC Glucose 161 H 12/09/23 11:46: POC Glucose 140 H Micro: Microbiology 12/08/23 19:17 Stool Stool Occult Blood ([facility]) - Final Occult Blood Positive Rhythm Strip Rhythm Strip: Sinus Tach Rate: 109 Ectopy: None Cardiology Labs/Tests 12/09/23 05:25: WBC 6.3, RBC 3.08 L, Hgb 9.3 L, Hct 29.0 L, MCV 94.2 H, MCH 30.2, MCHC 32.1, Plt Count 88 L, MPV 11.2, Immature Gran % (Auto) 0.300, Neut % (Auto) 72.0 H, Lymph % (Auto) 15.9 L, [place] % (Auto) 6.7, Eos % (Auto) 4.6, Baso % (Auto) 0.5, Absolute Neuts (auto) 4.5, Nucleated RBC % 0, Sodium 140, Potassium 4.9, Chloride 107, Carbon Dioxide 26.0, Anion Gap 7, BUN 107 H*, C reatinine 2.20 H, Est GFR (MDRD) Af Amer 37 L, Est GFR (MDRD) Non-Af 30 L, B UN/Creatinine Ratio 48.6 H, Glucose 191 H, Calcium 9.3 Rhythm: EKG: ECHO: Stress Test: Cardiac Cath: PCI: CT Surgery: Holter monitor: EPS: PPM: CXR: Chest CT Scan: Assessment & Plan Assessment/Plan (1) Acute on chronic anemia: (2) Acute on chronic renal insufficiency: (3) Symptomatic anemia: (4) Abnormal ECG: (5) Elevated troponin: (6) Shortness of breath: (7) History of COPD: (8) Non-ST elevation (NSTEMI) myocardial infarction: (9) Nonrheumatic aortic (valve) stenosis: (10) History of left heart catheterization (LHC): PLAN: Cardiac care plan 83-year-old patient seen and evaluated today at bedside along with the nursing staff His presentation is symptoms of shortness of breath and he had non-ST elevation ME with significant elevated cardiac biomarker He had echo which showed low normal ejection fraction in the range of 50-55% Patient has a prior cardiac catheterization in March [address] Blunt on. Patient also had a history of CKD, serum creatinine 2.2. Which revealed nonobstructive coronary artery disease with history of mild aortic stenosis On this presentation noted patient has anemia requiring blood transfusion with a hemoglobin of 7.1 and fecal occult blood was positive He was given 2 units of blood with his hemoglobin remains around 9.3. From cardiac standpoint I repeatedly discussed need for further evaluation by cardiac cath as he had a significant elevation of high sensitive troponin with symptoms of shortness of breath Due to the GI bleed he is not on heparin or aspirin. He is awaiting further evaluation by colonoscopy. From cardiac standpoint his risk is high due to her recent ME. However patient was repeatedly refused any further cardiac evaluation Would recommend medical therapy in the form of beta-greta, atorvastatin and if there is no active GI bleed to consider starting him on a low-dose aspirin. Patient is cleared for colonoscopy as a high risk. Due to recent non-ST elevation ME And to continue monitor and follow-up clinically from cardiac standpoint.
[2023-12-09 17:32] LABS: Bedside Glucose 164 mg/dL (74-106)
[2023-12-09] MEDS: Electrolyte Solution/Peg's 4000 ML PO (18:34)
--- NOTE | 2023-12-09 19:47 | CON.PCM.GI_ITS ---
HPI Consult Data Date of Consult: 12/09/23 HPI Narrative Reason for Consultation: Anemia HPI Narrative: BEULAH BRIGHT, is a 83-year-old male history of COPD and chronic hypoxic respiratory failure on 3 L home O2, CKD, right failure with preserved ejection fraction, hypertension, GERD, hypothyroidism, type 2 diabetes, CAD, severe carotid stenosis presented [facility] ED 12/06/2023 with increased shortness of breath. When EMS got to patient he was 80s on his 3 L and was placed on nonrebreather with improvement of sats and was saturating mid to high 90s on his 3 L of O2 by my evaluation, also in the ED was noted to have a hemoglobin of 6.8 which was down from 7.7 on 12/01 and a worsening creatinine of 3.44 that is steadily up trended over the past week. Also noted to have a troponin of 146. BNP 149 which is actually down from previous chest x-ray demonstrated some pulmonary vascular congestion and cardiomegaly. At this time he is not having any shortness of breath in the chair. He says he feels totally better after getting 2 units of blood. His current hemoglobin is up to 9.3. I was consulted to see him due to his need for colonoscopy because of a fecal positive stools, hemoglobin presentation is 6.8 and no other etiology of acute blood loss anemia. [facility] Medical History COPD (chronic obstructive pulmonary disease) Loss of hearing No natural teeth Wears glasses Poor historian Thyroid disease Low iron High cholesterol Syncope History of GI bleed Shortness of breath on exertion History of echocardiogram Cardiology follow-up encounter Symptomatic anemia Diabetes Kidney disease Former smoker On home oxygen therapy TIA (transient ischemic attack) Myocardial infarct Hypertension Diastolic CHF Acute and chronic respiratory failure with hypoxia History of CAD (coronary artery disease) Nonrheumatic aortic (valve) stenosis Mild left ventricular hypertrophy History of left heart catheterization (LHC) (~03/15/22) Atherosclerotic heart disease of [place] coronary artery without angina pectoris Aortic valve stenosis, acquired CAD (coronary artery disease) COPD (chronic obstructive pulmonary disease) Polyarthralgia Diabetes mellitus, type 2 Former tobacco use Obesity Hypothyroidism HLD (hyperlipidemia) HTN (hypertension) Chronic respiratory failure with hypoxia Home Medications ?Medication ?Instructions ?Recorded ?Last Taken ?Type atorvastatin 80 mg tablet 80 mg PO DAILY CHOLESTEROL 05/02/21 12/05/23 History cholecalciferol (vitamin D3) 25 25 mcg PO DAILY vitamin 05/02/21 12/06/23 History mcg (1,000 unit) capsule ipratropium 0.5 mg-albuterol 3 mg 3 ml inhalation 4X/DAY PRN sob 05/02/21 11/18/23 History (2.5 mg base)/3 mL nebulization soln liothyronine 25 mcg tablet 25 mcg PO DAILY THYROID 05/02/21 12/06/23 History omega-3 fatty acids-vitamin E 2 cap PO BID SUPPLEMENT 05/02/21 11/18/23 History 1,000 mg capsule tiotropium bromide 18 mcg capsule 18 mcg inhalation DAILY SOB 05/02/21 11/17/23 History with inhalation device (Spiriva with HandiHaler) vitamins A,C,E-jqls-xpcvws 4,296 1 cap PO BID vitamin 12/13/21 12/06/23 History mcg-226 mg-90 mg capsule (PreserVision AREDS) glimepiride 2 mg tablet 2 mg PO DAILY DM #3 tabs 03/09/23 12/06/23 Rx empagliflozin 10 mg tablet 10 mg PO DAILY heart failure 30 04/26/23 12/06/23 Rx (Jardiance) days #30 tabs lisinopril 10 mg tablet 10 mg PO DAILY HTN 06/27/23 12/06/23 History metoprolol succinate 25 mg 25 mg PO DAILY heart 06/27/23 12/05/23 History tablet,extended release 24 hr pantoprazole 40 mg tablet,delayed 40 mg PO BID stomach 06/27/23 12/06/23 History release (Protonix) ferrous sulfate 325 mg (65 mg 325 mg PO BID supplement 11/14/23 12/06/23 History iron) tablet (FeroSul) aspirin 81 mg tablet,delayed 81 mg PO DAILY heart health 11/18/23 12/06/23 History release (Adult Aspirin Regimen) torsemide 10 mg tablet 40 mg (4 x 10 mg) PO DAILY 11/20/23 12/06/23 Rx diuretic 30 days #120 tabs Allergy/AdvReac Type Severity Reaction Status Date / Time aliskiren (From Valt[place]a) Allergy Intermediate Other Verified 12/06/23 13:33 valsartan (From [place]a) Allergy Intermediate Other Verified 12/06/23 13:33 codeine AdvReac Upset Verified 12/06/23 13:33 Stomach Family History Mother CVA (cerebral vascular accident) Heart disease Myocardial infarction Hx of CABG Hypertension Father CVA (cerebral vascular accident) Heart disease Surgical History S/P cataract extraction Social History household members: none housing: house Smoking Status: Former smoker how long ago did patient quit smoking: Quit 2011, prior 1 ppd since teen. alcohol intake: former year quit: 2010 substance use type: does not use ROS ROS Narrative General: Denies fever/chills, feels fatigued HENT: Denies headache, denies stuffy nose, denies sore throat EYES: Denies changes in vision Resp: Denies cough, increased shortness of breath today Cardiac: Denies chest pain GI: Occasionally gets some twinges in the left lower quadrant not present, denies changes in bowel, denies nausea/vomiting : Some decreased urination Extremity: Patient denies increased lower extremity swelling MSK: Some generalized weakness Neuro: Denies any numbness/tingling Heme: Denies any bleeding or bruising Skin: Denies rashes Psychiatric: No complaints voiced Physical Exam Narrative alert, oriented x3, no apparent distress and healthy appearing General Appearance: cooperative, well kempt and well developed Orientation / Consciousness: awake, oriented to person, oriented to place and oriented to time HEENT normocephalic, head/scalp atraumatic and moist oral mucous membranes Eyes PERRL, EOMs intact bilaterally and conjunctivae normal Neck supple, no JVD and thyroid normal General: trachea midline Resp normal respiratory effort, no retractions, no use of accessory muscles and clear to auscultation bilaterally Auscultation: Negative for rales, rhonchi or wheezes Cardio regular rate, regular rhythm, S1 normal heart sound, S2 normal heart sound, no murmurs, no rub and no gallops GI normal to inspection, nondistended, normoactive bowel sounds, soft to palpation, non-tender and non-distended Extremity no clubbing, cyanosis or edema Skin no rashes or lesions noted General Skin Exam: no breakdown Neuro oriented x3, CN's II-XII intact bilaterally, no focal motor deficits and no sensory deficits noted Sensorium / Orientation: awake and alert Speech: speech normal Psych affect normal Lab / Micro Data 12/09/23 05:25 12/09/23 05:25 Labs: Laboratory Results - last 24 hr 12/06/23 15:00: Crossmatch See Detail 12/08/23 23:10: POC Glucose 182 H 12/09/23 05:25: WBC 6.3, RBC 3.08 L, Hgb 9.3 L, Hct 29.0 L, MCV 94.2 H, MCH 30.2, MCHC 32.1, RDW Std Deviation 47.8 H, RDW Coeff of John 14.2, Plt Count 88 L , MPV 11.2, Immature Gran % (Auto) 0.300, Neut % (Auto) 72.0 H, Lymph % (Auto) 15.9 L, [place] % (Auto) 6.7, Eos % (Auto) 4.6, Baso % (Auto) 0.5, Absolute Neuts (auto) 4.5, Absolute Lymphs (auto) 1.00, Nucleated RBC % 0, Sodium 140, Potassium 4.9, Chloride 107, Carbon Dioxide 26.0, Anion Gap 7, BUN 107 H*, C reatinine 2.20 H, Estim Creat Clear Calc 25.45, Est GFR (MDRD) Af Amer 37 L, Est GFR (MDRD) Non-Af 30 L, BUN/Creatinine Ratio 48.6 H, Glucose 191 H, Calcium 9.3 12/09/23 06:16: POC Glucose 161 H 12/09/23 11:46: POC Glucose 140 H 12/09/23 16:40: POC Glucose 164 H Micro: Microbiology 12/08/23 19:17 Stool Stool Occult Blood (CLARY) - Final Occult Blood Positive Rhythm Strip Rhythm Strip: Sinus Tach Rate: 109 Ectopy: None Assessment & Plan Assessment/Plan (1) Acute upper gastrointestinal bleeding: PLAN: 82-year-old male who presented to [facility] ED on 03/07/2023 with worsening shortness of breath on exertion and intermittent dark stools. Acute on chronic anemia, suspected lower versus upper GI bleed He had a previous EGD on 11/17/2022 shows bleeding AVM of the stomach which was treated with heater probe, Many nonbleeding superficial gastric ulcers, many nonbleeding duodenal ulcers H. pylori negative. Most recently his hemoglobin is decreased down to 6.8 and is up to 9.3. He was evaluated by cardiology and they said that his presentation with symptoms of shortness of breath and elevated troponins is likely consistent with non-ST elevation PA He had echo which showed low normal ejection fraction in the range of 50-55%. Patient has a prior cardiac catheterization in March [address] Blunt on. He was given 2 units of blood with his hemoglobin remains around 9.3. From cardiac standpoint with a first aid attendant discussed need for further evaluation by cardiac cath, but the patient refused. Also due to the GI bleed he is not on heparin or aspirin. He will undergo colonoscopy for evaluation of his lower GI tract for signs and symptoms of chronic blood loss anemia. He was explained alternatives, benefits, risk including outstanding bleeding, infection, sepsis, perforation, need for emergent and . He will have an ASA of 4. Procedure. (2) Acute on chronic anemia: Charges/Coding Visit Charges Inpatient E&M: 09954 Init Hosp L3
[2023-12-09] MEDS: Metoprolol(XL)Succ 25 MG Tablet PO (20:33)
[2023-12-09 21:22] LABS: Bedside Glucose 138 mg/dL (74-106)
[2023-12-09] MEDS: Albuterol 2.5 MG/3 ML VIAL.NEB. INHALATION (23:10)
[2023-12-10] VITALS (14 sets, daily range): BP systolic 103–144; BP diastolic 49–118; PULSE 82–110; RESP 16–22; TEMP 36–36.9; O2SAT 97–100; BMI 32.1
[2023-12-10] MEDS: Liothyronine 5 MCG Tablet 25 MCG PO (05:06)
--- NOTE | 2023-12-10 05:55 | EKG12_ITS ---
Test Reason : PRE-OP Blood Pressure : / mmHG Vent. Rate : 091 BPM Atrial Rate : 091 BPM P-R Int : 232 ms QRS Dur : 088 ms QT Int : 358 ms P-R-T Axes : 042 -12 033 degrees QTc Int : 440 ms Sinus rhythm with 1st degree A-V block Minimal voltage criteria for LVH, may be normal variant ( R in aVL ) Nonspecific ST and T wave abnormality Abnormal ECG When compared with ECG of 06-DEC-2023 13:35, [place] interval has increased ST less depressed in Lateral leads Nonspecific T wave abnormality, worse in Lateral leads Confirmed by JOSHUA CARRILLO, JACOB ([id number]), editor continuity and script GARRY DENNY ([id number]) on 12/11/2023 6:39:42 AM Referred By: Confirmed By:JACOB LEWIS MD
[2023-12-10 06:25] LABS: Absolute Lymphocyte Count 0.72 X10^3/uL (0.83-4.51); Absolute Neutrophil Count 2.9 X10^3/uL (2.0-7.7); Basophil# 0.03 X10^3/uL; Basophil% 0.7 % (0-1); Eosinophil# 0.28 X10^3/uL; Eosinophils% 6.5 % (0-5); Hematocrit 28.8 % (40-54); Hemoglobin 9.4 g/dL (13.0-16.5); Lymphocyte # 0.72 X10^3/ul (0.83-4.51); Lymphocyte % 16.7 % (19-41); Mean Corp Hgb Conc 32.6 g/dL (32-36); Mean Corpuscular Hgb 30.7 pg (27.0-32.0); Mean Corpuscular Volume 94.1 fL (80-94); Mean Platelet Vol. 11.3 fl (6.2-12.0); Monocyte# 0.31 X10^3/uL; Monocyte% 7.2 % (0-10); NRBC Flagged by Analyzer 0 % (0-5); Neutrophil # 2.94 X10^3/uL (2.7-7.7); Neutrophil % 68.4 % (47-70); POSITIVE COUNT YES; Platelet Count 89 K/mm3 (150-450); RBC Distribution Width CV 14.4 % (11.6-14.6); RBC Distribution Width SD 48.5 fl (35.1-43.9); Red Blood Count 3.06 M/mm3 (4.6-6.2); White Blood Count 4.3 K/mm3 (4.4-11.0)
[2023-12-10 06:38] LABS: International Normalized Ratio 1.2; Prothrombin Time (Protime)PT. 15.5 SECONDS (11.7-14.9)
[2023-12-10 06:43] LABS: Bedside Glucose 136 mg/dL (74-106)
[2023-12-10 06:55] LABS: Anion Gap 11 (5-15); BUN 80 mg/dL (7-18); BUN/Creat Ratio 42.8 RATIO (10-20); Calcium,Total 9.1 mg/dL (8.5-10.1); Chloride 108 mmol/L (98-107); Creatinine, Serum 1.87 mg/dL (0.70-1.30); EST Glomerular Filtration Rate 37 mL/min (>60); Est Glom Filt Rate - Afr Amer 44 mL/min (>60); Glucose 147 mg/dL (74-106); Potassium 4.8 mmol/L (3.5-5.1); Sodium Level 145 mmol/L (136-145)
[2023-12-10] MEDS: Ipratropium/Albuterol Sulfate 3 ML AMPUL.NEB INHALATION (07:13)
[2023-12-10 08:06] LABS: Hemoglobin A1c 5.9 % (3.8-5.6)
[2023-12-10] MEDS: Pantoprazole Sodium 40 MG in 0.9% Normal Saline (100mL MB+) 100 ML 330 MG IV (09:10)
[2023-12-10] MEDS: 0.9% Saline Lock 10 ML Syringe IV (09:10)
[2023-12-10] MEDS: Menthol/Lanolin/Calamine/Znox 113 GM Tube TOPICAL (09:18)
--- NOTE | 2023-12-10 10:41 | PCM.PN.CARD ---
Subjective Subjective Patient seen and evaluated today at bedside Along with the nursing staff Sitting out in a chair Does not have any active symptoms of chest pain Symptoms of shortness of breath improving Objective Data Vital Signs: Vital Signs Temp Pulse Resp BP Pulse Ox O2 Del Method O2 Flow Rate 97.7 F L 91 18 142/79 H 100 Nasal Cannula 2 12/10/23 09:05 12/10/23 09:05 12/10/23 09:05 12/10/23 09:05 12/10/23 09:13 12/10/23 09:13 12/10/23 09:13 Oxygen Flow Rate (L/min) 2 Oxygen Delivery Method Nasal Cannula Weight: 192 lb 14.472 oz Body Mass Index (BMI) 32.1 Intake & Output: Intake and Output for Last 24 Hours 12/08/23 12/09/23 12/10/23 23:59 23:59 23:59 Intake Total 1640 / 1760 580 / 580 Output Total 2300 / 2975 1850 / 1850 Balance -660 / -1215 -1270 / -1270 Lab / Micro Data 12/10/23 05:10 12/10/23 05:10 Labs: Laboratory Results - last 24 hr 12/09/23 11:46: POC Glucose 140 H 12/09/23 16:40: POC Glucose 164 H 12/09/23 20:31: POC Glucose 138 H 12/10/23 05:10: WBC 4.3 L, RBC 3.06 L, Hgb 9.4 L, Hct 28.8 L, MCV 94.1 H, MCH 30.7, MCHC 32.6, RDW Std Deviation 48.5 H, RDW Coeff of John 14.4, Plt Count 89 L, MPV 11.3, Immature Gran % (Auto) 0.500, Neut % (Auto) 68.4, Lymph % (Auto) 16.7 L, [place] % (Auto) 7.2, Eos % (Auto) 6.5 H, Baso % (Auto) 0.7, Absolute Neuts (auto) 2.9, Absolute Lymphs (auto) 0.72 L, Nucleated RBC % 0, PT 15.5 H, INR 1.2, APTT 32.0, Sodium 145, Potassium 4.8, Chloride 108 H, Carbon Dioxide 26.0, Anion Gap 11, BUN 80 H, Creatinine 1.87 H, Estim Creat Clear Calc 29.90, Est GFR (MDRD) Af Amer 44 L, Est GFR (MDRD) Non-Af 37 L, BUN/Creatinine Ratio 42.8 H, Glucose 147 H, Hemoglobin A1c 5.9 H, Calcium 9.1 12/10/23 06:15: POC Glucose 136 H Rhythm Strip Rhythm Strip: Sinus Tach Rate: 109 Ectopy: None Cardiology Labs/Tests 12/10/23 05:10: WBC 4.3 L, RBC 3.06 L, Hgb 9.4 L, Hct 28.8 L, MCV 94.1 H, MCH 30.7, MCHC 32.6, Plt Count 89 L, MPV 11.3, Immature Gran % (Auto) 0.500, Neut % (Auto) 68.4, Lymph % (Auto) 16.7 L, [place] % (Auto) 7.2, Eos % (Auto) 6.5 H, Baso % (Auto) 0.7, Absolute Neuts (auto) 2.9, Nucleated RBC % 0, PT 15.5 H, INR 1.2, APTT 32.0, Sodium 145, Potassium 4.8, Chloride 108 H, Carbon Dioxide 26.0, Anion Gap 11, BUN 80 H, Creatinine 1.87 H, Est GFR (MDRD) Af Amer 44 L, Est GFR (MDRD) Non-Af 37 L, BUN/Creatinine Ratio 42.8 H, Glucose 147 H, Hemoglobin A1c 5.9 H, Calcium 9.1 Rhythm: EKG: ECHO: Stress Test: Cardiac Cath: PCI: CT Surgery: Holter monitor: EPS: PPM: CXR: Chest CT Scan: Physical Exam Cardio Cardio Narrative: Patient alert and orientated x 3 Seen and evaluated in progressive care unit along with the nursing staff Review of his quality assurance monitor showed normal sinus rhythm Cardiovascular examination S1-S2 is regular Chest examination mild bilateral inspiratory rales +1 bilateral lower extremity edema Assessment & Plan Assessment/Plan (1) Acute upper gastrointestinal bleeding: (2) Anemia: QUALIFIERS: Anemia type: iron deficiency Iron deficiency anemia type: other iron deficiency Qualified Code(s): D50.8 - Other iron deficiency anemias (3) Essential hypertension: (4) Renal insufficiency: (5) Non-ST elevation (NSTEMI) myocardial infarction: (6) Aortic valve stenosis, acquired: (7) History of left heart catheterization (LHC): (8) HLD (hyperlipidemia): QUALIFIERS: Hyperlipidemia type: mixed hyperlipidemia Qualified Code(s): E78.2 - Mixed hyperlipidemia (9) Acute on chronic renal insufficiency: PLAN: Plan Cardiac care plan recommendation 83-year-old patient admitted with symptoms of shortness of breath. Cardiac evaluation revealed elevated high sensitive troponins With low normal ejection fraction by echocardiogram EF in the range of 50-55% Patient has anemia with a hemoglobin lower than 7 requiring blood transfusion Hemoglobin remained stable around 9.3 Patient declined further cardiac workup diffuse cardiac catheterization Due to anemia requiring blood transfusion he was not on any aspirin or heparin He underwent upper GI endoscopy recently and scheduled today for high risk colonoscopy due to his recent non-ST elevation SD From cardiac point of view recommendation would be medical treatment and follow-up following the result of colonoscopy.
[2023-12-10 12:11] LABS: Bedside Glucose 142 mg/dL (74-106)
--- NOTE | 2023-12-10 15:21 | PN.RENAL_ITS ---
Subjective Subjective no new complaints Objective Data Objective Data Vital Signs: Vital Signs Temp Pulse Resp BP Pulse Ox O2 Del Method O2 Flow Rate 98.0 F 96 18 144/65 H 100 Nasal Cannula 3 12/10/23 14:39 12/10/23 14:39 12/10/23 14:39 12/10/23 14:39 12/10/23 14:39 12/10/23 14:39 12/10/23 14:39 Oxygen Flow Rate (L/min) 3 Oxygen Delivery Method Nasal Cannula Weight: 87.5 kg Body Mass Index (BMI) 32.1 Intake & Output: Intake and Output for Last 24 Hours 12/08/23 12/09/23 12/10/23 23:59 23:59 23:59 Intake Total 1640 / 1760 580 / 580 110 / 110 Output Total 2300 / 2975 1850 / 1850 Balance -660 / -1215 -1270 / -1270 110 / 110 Lab / Micro Data 12/10/23 05:10 12/10/23 05:10 Labs: Laboratory Results - last 24 hr 12/09/23 16:40: POC Glucose 164 H 12/09/23 20:31: POC Glucose 138 H 12/10/23 05:10: WBC 4.3 L, RBC 3.06 L, Hgb 9.4 L, Hct 28.8 L, MCV 94.1 H, MCH 30.7, MCHC 32.6, RDW Std Deviation 48.5 H, RDW Coeff of John 14.4, Plt Count 89 L , MPV 11.3, Immature Gran % (Auto) 0.500, Neut % (Auto) 68.4, Lymph % (Auto) 16.7 L, [place] % (Auto) 7.2, Eos % (Auto) 6.5 H, Baso % (Auto) 0.7, Absolute Neuts (auto) 2.9, Absolute Lymphs (auto) 0.72 L, Nucleated RBC % 0, PT 15.5 H, INR 1.2, APTT 32.0, Sodium 145, Potassium 4.8, Chloride 108 H, Carbon Dioxide 26.0, Anion Gap 11, BUN 80 H, Creatinine 1.87 H, Estim Creat Clear Calc 29.90, Est GFR (MDRD) Af Amer 44 L, Est GFR (MDRD) Non-Af 37 L, BUN/Creatinine Ratio 42.8 H, G lucose 147 H, Hemoglobin A1c 5.9 H, Calcium 9.1 12/10/23 06:15: POC Glucose 136 H 12/10/23 11:54: POC Glucose 142 H Micro: Microbiology 12/08/23 19:17 Stool Stool Occult Blood (CLARY) - Final Occult Blood Positive 12/06/23 14:05 Mucosa - Nose SARS-CoV-2, Influenza & RSV (PCR) - Final Rhythm Strip Rhythm Strip: Sinus Tach Rate: 109 Ectopy: None Physical Exam Narrative Alert awake oriented x 3 no obvious distress no pallor no icterus no JVD s1s2 no murmurs lungs clear abdomen soft no organomegaly no edema no cyanosis Assessment & Plan Assessment/Plan (1) Acute on chronic renal insufficiency: PLAN: CKD stage 4. baseline cr around 2.1 to 2.4 or so. proteinuria 0.6 gm. renal US with no hydronephrosis. significantly elevated troponins. BNP is not significantly high despite elevated creatinine. GUZMAN is likely related to cardiorenal syndrome. Creatinine is now closer to baseline. Elevated troponins, cardiology on consult now. patient has declined any cardiac intervention once again
--- NOTE | 2023-12-10 16:26 | PRE.ANES_ITS ---
ASA Classification* ASA Classification ASA Classification: 3 and E Assessment & Plan Anesthesia* Anesthesia Assessment Anesthesia Assessment: Discussed sedation and/or anesthesia options, risks, benefits, and alternatives with patient/parents/legal guardian/POA. Questions invited. The patient/parents/legal guardian/POA seems to understand and agrees to proceed with anesthesia plan. Reviewed the physical assessment, medical history, allergy history and patient home medications list prior to surgery/procedure/anesthetic and documented any changes. Performed airway and anesthesia risk assessments. Anesthesia Type Anesthesia Type: MAC History Source History Obtained from:: Patient and Chart Anesthesia Focused Assessment* Temperature: 98.0 F Pulse Rate: 96 Blood Pressure: 144/65 Respiratory Rate: 18 Pulse Ox: 100 Airway Assessment Mouth opens: >3 cm Mallampati Score: III Teeth Condition: Intact Neck Range of motion (ROM): Full ROM Focused Labs Anesthesia Preop lab: CBC WBC 4.3 K/mm3 (4.4-11.0) L 12/10/23 05:10 RBC 3.06 M/mm3 (4.6-6.2) L 12/10/23 05:10 Hgb 9.4 g/dL (13.0-16.5) L 12/10/23 05:10 Hct 28.8 % (40-54) L 12/10/23 05:10 Plt Count 89 K/mm3 (150-450) L 12/10/23 05:10 CHEMISTRY Potassium 4.8 mmol/L (3.5-5.1) 12/10/23 05:10 Sodium 145 mmol/L (136-145) 12/10/23 05:10 Magnesium 2.1 mg/dL (1.6-2.6) 12/08/23 07:18 Phosphorus 3.5 mg/dL (2.5-4.9) 12/08/23 07:18 BUN 80 mg/dL (7-18) H 12/10/23 05:10 Creatinine 1.87 mg/dL (0.70-1.30) H 12/10/23 05:10 Glucose 147 mg/dL (74-106) H 12/10/23 05:10 POC Glucose 142 mg/dL (74-106) H 12/10/23 11:54 TSH 2.800 uIU/mL (0.358-3.740) 11/15/23 04:17 COAG PT 15.5 SECONDS (11.7-14.9) H 12/10/23 05:10 Pre-Assessment Diagnosis/Proposed Procedure Planned Operative Procedure(s): colonoscopy Anesthesia History Anesthesia History - [employer] product consultant: Anesthesia History - [employer] product consultant Hx Hospitalization Yes: 03/08/23 GI BLEED 03/28/23 11:29 Any Problems With Anesthesia No 12/10/23 04:34 Cholinesterase deficiency No 03/28/23 11:29 You/Your Family Experience No 03/28/23 11:29 fever (hyperthermia) with Relationship Recent Exposure to Contagious No 04/02/23 09:15 Disease Does patient have nerve No 12/10/23 04:34 stimulator Patient instructed to have device shut off --Does patient have Pacemaker No 12/10/23 14:39 or ICD? When Was Last Pacemaker Check QUESTION #4 FULL TEXT: You/Your Family Experience fever (hyperthermia) with Anesthesia Last Oral Intake Last Oral intake: Last Oral Intake NPO since 05:10 12/10/23 14:39 Meds taken in AM with sips of Yes 12/10/23 14:39 water? Meds patient instructed to cytomel @ 0506 12/10/23 14:39 take am of surgery PONV PONV - [employer] product consultant: PONV - [employer] product consultant Female HX of Motion Sickness HX of N/V After Surgery Non-Smoker Duration of Surgery greater than 60 minutes Number of Risk Factors PONV Score Height & Weight Height & Weight: Anesthesia: Height & Weight Height 5 ft 5 in 12/10/23 14:39 Weight: 87.5 kg 12/10/23 14:39 Body Mass Index (BMI) 32.1 12/10/23 14:39 Respiratory Assessment Respiratory Assessment - [employer] product consultant: Respiratory Tract Infection Hx - [employer] product consultant Hx Respiratory Tract Infection No 03/28/23 11:29 STOP Sleep Apnea STOP Sleep Apnea - [employer] product consultant: STOP Sleep Apnea - [employer] product consultant Hx Hypertension Yes 12/07/23 15:57 Hx Sleep Apnea No 12/06/23 17:21 CPAP BIPAP Do you snore loudly (louder No 12/06/23 17:21 than talking or can be heard Do you often feel tired/ Yes 12/06/23 17:21 fatigued/ sleepy during daytime? Has anyone observed you stop No 12/06/23 17:21 breathing during sleep? STOP Results Positive 12/06/23 17:21 QUESTION #5 FULL TEXT : Do you snore loudly (louder than talking or can be heard through closed doors)? Tobacco Use History Tobacco Use History - [employer] product consultant: Tobacco Use History - [employer] product consultant Tobacco Use Smoking Status Former smoker 12/06/23 17:21 Hx Tobacco Use No 12/06/23 17:21 Years Smoking Packs Smoked per Day Smoking Cessation Date was Yes - quit smoking within 15 12/06/23 17:21 within the last 15 years years Hx Smoking Cessation Date 04/12/10 12/06/23 17:21 Hx Smoking Cessation Counseling Hematologic Medial History Hematologic Hx - [employer] product consultant: Hematologic Medical Hx - [facility] Hx of Blood Transfusion Yes 12/06/23 17:21 Hx of Transfusion in last 3 No 12/06/23 17:21 Months Date of Last Transfusion (if within last 3 months) Ever experience any problems No 12/06/23 17:21 with transfusion(s)? Specify any problems Hx of Preganancy in last 3 N/A 12/06/23 17:21 Months Nurse Filling Out Transfusion SANTIAGO 12/06/23 17:21 & Questions: Date: 12/06/23 12/06/23 17:21 Time: 18:01 12/06/23 17:21 Patient unable to answer at this time (ie. confused, unrespo /Reproduction History /Reproductive History - [employer] product consultant: /Reproductive Hx- [employer] product consultant Hx Now No 12/10/23 04:34 Gestational Age (in weeks): EDC: Hx Hx Para Hx Section SAB No 12/10/23 04:34 Active Medications Active Medications: Current Medications Generic Name Dose Route Start Last Admin Trade Name Freq PRN Reason Stop Dose Admin Acetaminophen 650 mg 12/06/23 17:24 Acetaminophen 325 Mg Tablet PO Q6H PRN PRN Pain 1-10 Or Fever >100.7 Albuterol Sulfate 2.5 mg 12/06/23 17:24 12/09/23 23:10 Albuterol 2.5 Mg/3 Ml Vial.Neb. INHALATION 2.5 mg Q2H PRN PRN Administration SOB &/OR WHEEZING Albuterol/Ipratropium 3 ml 12/06/23 17:30 12/10/23 07:13 Ipratropium/Albuterol Sulfate 3 Ml Ampul.Neb INHALATION 3 ml Q6HWA.RT KALEB Administration Atorvastatin Calcium 80 mg 12/07/23 10:00 12/09/23 09:53 Atorvastatin Calcium 80 Mg Tablet PO 80 mg DAILY KALEB Administration Calamine/Phenol 0 applic 12/07/23 22:00 12/10/23 09:18 Menthol/Lanolin/Calamine/Znox 113 Gm Tube TOPICAL 1 applic BID KALEB Administration Protocol Furosemide 40 mg 12/06/23 17:24 12/10/23 13:02 Furosemide 40 Mg/4 Ml Vial IV Not Given DAILY KALEB Glucagon 1 mg 12/06/23 17:24 Glucagon 1 Mg/Ml Syringe IM X1 PRN HYPOGLYCEMIA Protocol Sodium Chloride 250 mls @ 15 mls/hr 12/06/23 17:22 IV .[id number] PRN Additional IVPB Infusion Sodium Chloride 250 mls @ 15 mls/hr 12/06/23 17:22 IV .[id number] PRN Saline Flush Dextrose 250 mls @ 0 mls/hr 12/06/23 17:24 Dextrose 10%-Water IV .Q0M PRN HYPOGLYCEMIA Protocol As Directed Pantoprazole Sodium 40 mg/ 110 mls @ 330 mls/hr 12/06/23 22:00 12/10/23 09:45 Sodium Chloride IV Infused Q12 KALEB Infusion Insulin Human Lispro 0 unit 12/06/23 22:00 12/10/23 11:34 Insulin Lispro 100 Unit/Ml Insuln.Pen SC Not Given ACHS KALEB Protocol Liothyronine Sodium 25 mcg 12/07/23 06:00 12/10/23 05:06 Liothyronine 5 Mcg Tablet PO 25 mcg DAILY@0600 KALEB Administration Melatonin 3 mg 12/06/23 17:24 Melatonin 3 Mg Tablet PO QHS PRN PRN INSOMNIA Metoprolol Succinate 25 mg 12/06/23 22:00 12/09/23 20:33 Metoprolol(Xl)Succ 25 Mg Tablet PO 25 mg QHS KALEB Administration Protocol Ondansetron HCl 4 mg 12/06/23 17:24 Ondansetron 4 Mg/2 Ml Vial IV Q8H PRN PRN NAUSEA/VOMITING Senna/Docusate Sodium 2 tablet 09/26/24 17:24 Senna/Docusate Sodium 1 Tablet PO BID PRN PRN Constipation Sodium Chloride 10 - 40 ml 12/06/23 17:22 12/10/23 09:10 0.9% Saline Lock 10 Ml Syringe IV 10 ml UD PRN Administration SALINE FLUSH [facility] Medical History COPD (chronic obstructive pulmonary disease) Loss of hearing No natural teeth Wears glasses Poor historian Thyroid disease Low iron High cholesterol Syncope History of GI bleed Shortness of breath on exertion History of echocardiogram Cardiology follow-up encounter Symptomatic anemia Diabetes Kidney disease Former smoker On home oxygen therapy TIA (transient ischemic attack) Myocardial infarct Hypertension Diastolic CHF Acute and chronic respiratory failure with hypoxia History of CAD (coronary artery disease) Nonrheumatic aortic (valve) stenosis Mild left ventricular hypertrophy History of left heart catheterization (LHC) (~03/15/22) Atherosclerotic heart disease of [place] coronary artery without angina pectoris Aortic valve stenosis, acquired CAD (coronary artery disease) COPD (chronic obstructive pulmonary disease) Polyarthralgia Diabetes mellitus, type 2 Former tobacco use Obesity Hypothyroidism HLD (hyperlipidemia) HTN (hypertension) Chronic respiratory failure with hypoxia Home Medications ?Medication ?Instructions ?Recorded ?Last Taken ?Type atorvastatin 80 mg tablet 80 mg PO DAILY CHOLESTEROL 05/02/21 12/05/23 History cholecalciferol (vitamin D3) 25 25 mcg PO DAILY vitamin 05/02/21 12/06/23 History mcg (1,000 unit) capsule ipratropium 0.5 mg-albuterol 3 mg 3 ml inhalation 4X/DAY PRN sob 05/02/21 11/18/23 History (2.5 mg base)/3 mL nebulization soln liothyronine 25 mcg tablet 25 mcg PO DAILY THYROID 05/02/21 12/06/23 History omega-3 fatty acids-vitamin E 2 cap PO BID SUPPLEMENT 05/02/21 11/18/23 History 1,000 mg capsule tiotropium bromide 18 mcg capsule 18 mcg inhalation DAILY SOB 05/02/21 11/17/23 History with inhalation device (Spiriva with HandiHaler) vitamins A,C,U-ukyb-cpqqpo 4,296 1 cap PO BID vitamin 12/13/21 12/06/23 History mcg-226 mg-90 mg capsule (PreserVision AREDS) glimepiride 2 mg tablet 2 mg PO DAILY DM #3 tabs 03/09/23 12/06/23 Rx empagliflozin 10 mg tablet 10 mg PO DAILY heart failure 30 04/26/23 12/06/23 Rx (Jardiance) days #30 tabs lisinopril 10 mg tablet 10 mg PO DAILY HTN 06/27/23 12/06/23 History metoprolol succinate 25 mg 25 mg PO DAILY heart 06/27/23 12/05/23 History tablet,extended release 24 hr pantoprazole 40 mg tablet,delayed 40 mg PO BID stomach 06/27/23 12/06/23 History release (Protonix) ferrous sulfate 325 mg (65 mg 325 mg PO BID supplement 11/14/23 12/06/23 History iron) tablet (FeroSul) aspirin 81 mg tablet,delayed 81 mg PO DAILY heart health 11/18/23 12/06/23 History release (Adult Aspirin Regimen) torsemide 10 mg tablet 40 mg (4 x 10 mg) PO DAILY 11/20/23 12/06/23 Rx diuretic 30 days #120 tabs Allergy/AdvReac Type Severity Reaction Status Date / Time aliskiren (From Valturna) Allergy Intermediate Other Verified 12/06/23 13:33 valsartan (From Valt[place]a) Allergy Intermediate Other Verified 12/06/23 13:33 codeine AdvReac Upset Verified 12/06/23 13:33 Stomach Family History Mother CVA (cerebral vascular accident) Heart disease Myocardial infarction Hx of CABG Hypertension Father CVA (cerebral vascular accident) Heart disease Surgical History S/P cataract extraction Social History household members: none housing: house Smoking Status: Former smoker how long ago did patient quit smoking: Quit 2010, prior 1 ppd since teen. alcohol intake: former year quit: 2010 substance use type: does not use Review of Systems (Anesthesia) ROS Narrative System reviewed and no additional complaints, except as documented.
[2023-12-10] MEDS: Lactated Ringers 1,000 ML 15 ML IV (16:30)
--- NOTE | 2023-12-10 16:30 | COLBX_PTH ---
PATIENT: BEULAH BRIGHT LOC: [facility] U#:[id number] AGE/SX: 83/M ROOM: [facility] RE12/06/[address]: Dr. Anthony Sosa DO : 1940 BED: 1 DIS: 12/10/2023 SPEC #: [id number] RECD: 12/11/23 08:45 STATUS: CHRISTIANO REPilar #: [id number] BUZZ: 12/10/23 16:[address]: Fredy Joy DEPT: SURGICAL PATHOLOGY RECD BY: Eli Ellis ENTERED: 12/11/23 10:14 SP TYPE: COLON BX OTHR DR: MD Dr. Anderson Cortes MD Dr. Mark Tereletsky, DO Dr. Nicholas F Kotsonis, MD Dr. Paul Nielsen, MD Dr. Paige Pierce, MD Tissues: Sigmoid colon biopsy Procedures: Surgery Specimen Level IV HEADER OPERATION: Colonoscopy PRE-OP DIAGNOSIS: Acute upper gastrointestinal bleeding TISSUE SUBMITTED: Sigmoid colon polyp biopsy MICROSCOPIC DIAGNOSIS Sigmoid colon polyp, biopsy: Inflammatory polyp. AM 12/12/2023 MICROSCOPIC DESCRIPTION Slides are reviewed. GROSS DESCRIPTION Received in fixative is one container labeled with the patient's name and designated Sigmoid colon polyp biopsy. The specimen consists of multiple irregular fragments of light atkins soft tissue that in aggregate measure 1.0 x 0.5 x 0.2 cm. The specimen is totally submitted in one cassette. 12/11/2023 TC:5 CPT:38194
--- NOTE | 2023-12-10 16:56 | PCM.POST.ANE ---
Anesthesia: Postop Eval I Current Vital Signs Temperature: 97 F Pulse Rate: 90 Blood Pressure: 124/98 Respiratory Rate: 16 Pulse Ox: 97 Oxygen Delivery Method: Nasal Cannula Oxygen Flow Rate (L/min): 3 Assessment Airway patent: Yes Spontaneous unlabored respirations: Yes Mental status: Awake and Calm nausea: No Vomiting: No Anesthesia Complication: No Fluid Hydration Crystalloid volume administer (ml): 300 Total IV fluid infused: 300 Progress Note Anesthesia document: Postop Eval 1 completed: Yes
--- NOTE | 2023-12-10 16:57 | POSTOPAN2_ITS ---
Anesthesia Postop Eval I Sum Postop Eval Completion status Anesthesia document: Postop Eval 1 completed: Yes Anesthesia Postop Eval I Summary Anesthesia Postop Eval I Summary: Anesthesia Postop Eval I: Assessment Summary Airway patent Yes 12/10/23 16:57 LIQUID HYDROGEN PLANT OPERATOR.MDOT Spontaneous unlabored Yes 12/10/23 16:57 LIQUID HYDROGEN PLANT OPERATOR.MDOT respirations Mental status Awake,Calm 12/10/23 16:57 LIQUID HYDROGEN PLANT OPERATOR.MDOT nausea No 12/10/23 16:57 LIQUID HYDROGEN PLANT OPERATOR.MDOT Vomiting No 12/10/23 16:57 LIQUID HYDROGEN PLANT OPERATOR.MDOT Anesthesia Postop Eval I: Fluid Summary Crystalloid volume administer 300 12/10/23 16:57 LIQUID HYDROGEN PLANT OPERATOR.MDOT (ml) Colloids volume administered ( ml) Blood Product volume administered (ml) Total IV fluid infused 300 12/10/23 16:57 LIQUID HYDROGEN PLANT OPERATOR.MDOT Anesthesia Postop Eval I: Summary Notes Anesthesia Complication No 12/10/23 16:57 LIQUID HYDROGEN PLANT OPERATOR.MDOT Anesthesia Complication Comment: Post-operative progress note Anesthesia: Postop Eval II Evaluation Mental status: Awake and Calm Pain Level: 0 nausea: No Vomiting: No Complications Anesthesia Complication: No
--- NOTE | 2023-12-10 16:57 | PCM.POSTANE2 ---
Anesthesia Postop Eval I Sum Postop Eval Completion status Anesthesia document: Postop Eval 1 completed: Yes Anesthesia Postop Eval I Summary Anesthesia Postop Eval I Summary: Anesthesia Postop Eval I: Assessment Summary Airway patent Yes 12/10/23 16:57 MANAGER PATIENT.MDOT Spontaneous unlabored Yes 12/10/23 16:57 MANAGER PATIENT.MDOT respirations Mental status Awake,Calm 12/10/23 16:57 MANAGER PATIENT.MDOT nausea No 12/10/23 16:57 MANAGER PATIENT.MDOT Vomiting No 12/10/23 16:57 MANAGER PATIENT.MDOT Anesthesia Postop Eval I: Fluid Summary Crystalloid volume administer 300 12/10/23 16:57 MANAGER PATIENT.MDOT (ml) Colloids volume administered ( ml) Blood Product volume administered (ml) Total IV fluid infused 300 12/10/23 16:57 MANAGER PATIENT.MDOT Anesthesia Postop Eval I: Summary Notes Anesthesia Complication No 12/10/23 16:57 MANAGER PATIENT.MDOT Anesthesia Complication Comment: Post-operative progress note Anesthesia: Postop Eval II Evaluation Mental status: Awake and Calm Pain Level: 0 nausea: No Vomiting: No Complications Anesthesia Complication: No
--- NOTE | 2023-12-10 16:59 | OP.COLON_ITS ---
Patient Name: Corona West Procedure Date: 12/10/2023 4:23 PM Date of : 1940 Age: 83 Procedure: Colonoscopy Indications: Heme positive stool, Iron deficiency anemia Providers: Fredy Joy DO Medicines: Monitored Anesthesia Care Patient Profile: This is an 83 year old male. Refer to note in patient chart for documentation of history and physical. Last Colonoscopy: date unknown. Unable to locate last colonoscopy report. Complications: No immediate complications. Procedure: Pre-Anesthesia Assessment: - Prior to the procedure, a History and Physical was performed, and patient medications and allergies were reviewed. The patient is competent. The risks and benefits of the procedure and the sedation options and risks were discussed with the patient. All questions were answered and informed consent was obtained. Patient identification and proposed procedure were verified by the physician in the pre-procedure area. Mental Status Examination: alert and oriented. Airway Examination: normal oropharyngeal airway and neck mobility. Respiratory Examination: clear to auscultation. CV Examination: normal. Prophylactic Antibiotics: The patient does not require prophylactic antibiotics. Prior Anticoagulants: The patient has taken no anticoagulant or antiplatelet agents except for NSAID medication. ASA Grade Assessment: II - A patient with mild systemic disease. After reviewing the risks and benefits, the patient was deemed in satisfactory condition to undergo the procedure. The anesthesia plan was to use monitored anesthesia care (MAC). Immediately prior to administration of medications, the patient was re-assessed for adequacy to receive sedatives. The heart rate, respiratory rate, oxygen saturations, blood pressure, adequacy of pulmonary ventilation, and response to care were monitored throughout the procedure. The physical status of the patient was re-assessed after the procedure. After I obtained informed consent, the scope was passed under direct vision. Throughout the procedure, the patient's blood pressure, pulse, and oxygen saturations were monitored continuously. The colonoscope was introduced through the anus and advanced to the cecum, identified by appendiceal orifice and ileocecal valve. The colonoscopy was performed without difficulty. The patient tolerated the procedure well. The quality of the bowel preparation was adequate. The ileocecal valve, appendiceal orifice, and rectum were photographed. Scope In: 4:38:39 PM Scope Withdrawal Time 0 hours 9 minutes 13 seconds Scope Out: 4:51:11 PM Total Procedure Duration Time 0 hours 12 minutes 32 seconds Findings: The perianal and digital rectal examinations were normal. Two sessile polyps were found in the sigmoid colon. The polyps were 1 to 2 mm in size. These polyps were removed with a cold snare. Resection and retrieval were complete. Verification of patient identification for the specimen was done. Estimated blood loss was minimal. A few small-mouthed diverticula were found in the recto-sigmoid colon and sigmoid colon. The exam was otherwise without abnormality on direct and retroflexion views. Impression: - Two 1 to 2 mm polyps in the sigmoid colon, removed with a cold snare. Resected and retrieved. - Diverticulosis in the recto-sigmoid colon and in the sigmoid colon. - The examination was otherwise normal on direct and retroflexion views. Recommendation: - [facility]. - Resume regular diet. - Continue present medications. - Await pathology results. - Repeat colonoscopy. Procedure Code(s): --- Professional --- 56886, Colonoscopy, flexible; with removal of tumor(s), polyp(s), or other lesion(s) by snare technique CPT copyright 2021 [employer]. All rights reserved. The codes documented in this report are preliminary and upon personnel training officer review may be revised to meet current compliance requirements. Fredy Joy DO 12/10/2023 4:58:29 PM This report has been signed electronically. Number of Addenda: 0 Note Initiated On: 12/10/2023 4:23 PM
--- NOTE | 2023-12-10 16:59 | OP.CCLET_ITS ---
12/10/2023 Emeka Hernandez MD [address] [id number] Re : Colonoscopy procedure for Corona West Dear Dr. Hernandez This procedure was performed on Sunday, December 10, 2023. My impressions and recommendations are as follows: Impressions : - Two 1 to 2 mm polyps in the sigmoid colon, removed with a cold snare. Resected and retrieved. - Diverticulosis in the recto-sigmoid colon and in the sigmoid colon. - The examination was otherwise normal on direct and retroflexion views. Recommendations : - [facility]. - Resume regular diet. - Continue present medications. - Await pathology results. - Repeat colonoscopy. My findings are described in the full procedure note, which is enclosed. If I can be of further assistance, please feel free to contact me at . Sincerely, Fredy Joy, 12/10/2023 4:58:29 PM This report has been signed electronically.
[2023-12-10] MEDS: Atorvastatin Calcium 80 MG Tablet PO (17:43)
--- NOTE | 2023-12-10 17:51 | DCINST_ITS ---
Discharge Instructions Diet Discharge Diet: No restrictions Activity Discharge Activity: Return to Normal Activity Weight Bearing Status: Full weight bearing Follow Up Care Test Results: Test results from this visit will be discussed in further detail at your follow- up appointment, if applicable. Discharge Plan Admission Admit Date/Time: 12/06/23 16:29 Primary Reason for Your Visit: Acute on chronic heart failure Attending Provider: Anthony Sosa Primary Care Provider: Emeka Hernandez Consulting Providers: Anderson Hammond; Jennifer Pardo; Barber Martell; John Anders Discharge Orders/Prescriptions Prescriptions: Continued atorvastatin 80 mg tablet 80 mg PO DAILY ipratropium-albuterol 0.5 mg-3 mg(2.5 mg base)/3 mL solution for nebulization 3 ml inhalation 4X/DAY PRN (Reason: sob) Patient Comments: inhale contents of 1 vial ( 3 milliliters ) in nebulizer by mouth... (REFER TO PRESCRIPTION NOTES). liothyronine 25 mcg tablet 25 mcg PO DAILY Patient Comments: TAKE 1 TABLET BY MOUTH ONCE DAILY FOR 90 DAYS tiotropium bromide [Spiriva with HandiHaler] 18 mcg capsule, w/inhalation device 18 mcg INHALATION DAILY Patient Comments: INHALE THE CONTENTS OF 1 CAPSULE TWICE EACH TIME VIA HANDIHALER ONCE DAILY cholecalciferol (vitamin D3) 25 mcg (1,000 unit) Capsule 25 mcg PO DAILY PreserVision AREDS [id number] Capsule 1 cap PO BID Jardiance 10 mg Tablet 10 mg PO DAILY 30 Days Qty: 30 0RF glimepiride 2 mg tablet 2 mg PO DAILY Qty: 3 0RF Patient Comments: take 1 tablet by mouth once daily WITH FIRST MEAL OF THE DAY Rx Instructions: Hold if glucose less than 130 mg/dl lisinopril 10 mg tablet 10 mg PO DAILY pantoprazole [Protonix] 40 mg tablet,delayed release (DR/EC) 40 mg PO BID metoprolol succinate 25 mg tablet extended release 24 hr 25 mg PO DAILY ferrous sulfate [FeroSul] 325 mg (65 mg iron) tablet 325 mg PO BID aspirin [Adult Aspirin Regimen] 81 mg tablet,delayed release (DR/EC) 81 mg PO DAILY torsemide 10 mg tablet 40 mg PO DAILY 30 Days Qty: 120 0RF Discontinued omega-3 fatty acids-vitamin E 1,000 mg Capsule 2 cap PO BID Referrals / Follow Up: Manuela Washburn DO [Med Staff - Consulting] - See Referral Note (As scheduled) Emeka Hernandez MD [Primary Care Provider] - Within 2 Weeks Fredy Joy DO [Med Staff - Active Staff] - See Referral Note (In 2 weeks, call office for an appointment) Disposition Disposition (needs filled in before D/C Order can be placed): Home, Self Care
[2023-12-10 18:03] LABS: Bedside Glucose 113 mg/dL (74-106)
--- NOTE | 2023-12-10 18:09 | DS.PCM_ITS ---
Providers Date of Admission: 12/06/23 Date of Discharge: 12/10/23 Primary Care Physician: Dr. Emeka Hernandez MD Consultations 12/06/23 17:24 Consult: Nephrology Routine Consulting Provider: Anderson Hammond Reason for Consult: Worsening kidney failure, decreasing UOP EMERGENT Consult: No MD Notified: Yes Date Notified: 12/06/23 Time Notified: 17:27 Method of Notification: Text 12/07/23 13:18 Consult: Cardiology Routine Consulting Provider: Barber Martell Reason for Consult: troponin over 5000, no chest pain EMERGENT Consult: No MD Notified: Yes Date Notified: 12/07/23 Time Notified: 15:21 Method of Notification: Text 12/08/23 15:34 Consult: Gastroenterology Routine Consulting Provider: [facility] Reason for Consult: chronic anemia, need for colonoscopy and EGD, may see on 12/09/23 EMERGENT Consult: No Notified: Yes Date Notified: 12/08/23 Time Notified: 15:36 Method of Notification: Verbal Reason For Visit: ACUTE ON CHRONIC ANEMIA Diagnosis Discharge Diagnosis (1) Acute on chronic renal insufficiency: Status: Chronic Code(s): N28.9 - Disorder of kidney and ureter, unspecified; N18.9 - Chronic kidney disease, unspecified Plan 1. Acute on chronic heart failure with preserved ejection fraction-patient's Lasix is being held presently due to an elevated creatinine on admission, patient's creatinine today was 2.2, I will recheck BMP tomorrow #2 acute on chronic symptomatic anemia requiring blood transfusion-patient will undergo endoscopy tomorrow, CBC will be repeated in the morning #3 hypoxia on a backdrop of chronic hypoxic respiratory failure-patient is on home oxygen chronically, his oxygen requirement today was 2 L at rest, patient will need to be ambulated prior to discharge to see if he requires a higher oxygen setting at home #4 elevated troponin secondary to demand ischemia-no cardiac workup is indicated at this time, patient's ejection fraction on his echocardiogram is 50 to 55% #5 chronic obstructive pulmonary disease-complicates care, management, recovery, and prognosis #6 acute kidney injury on a backdrop of chronic kidney disease stage IIIb- patient's creatinine is improved, and will be monitored as indicated, nephrology is participating in his care #7 colonic polyps Total clinical time spent by myself addressing the patient's medical issues, reviewing all of his data, and collaborating with patient's care team: 35 minutes Medications at Discharge Home Medications atorvastatin 80 mg tablet 80 mg PO DAILY CHOLESTEROL 05/02/21 cholecalciferol (vitamin D3) 25 mcg (1,000 unit) capsule 25 mcg PO DAILY vitamin 05/02/21 ipratropium 0.5 mg-albuterol 3 mg (2.5 mg base)/3 mL nebulization soln 3 ml inhalation 4X/DAY PRN sob 05/02/21 liothyronine 25 mcg tablet 25 mcg PO DAILY THYROID 05/02/21 tiotropium bromide 18 mcg capsule with inhalation device (Spiriva with HandiHaler) 18 mcg inhalation DAILY SOB 05/02/21 vitamins A,C,B-xaax-rkikal 4,296 mcg-226 mg-90 mg capsule (PreserVision AREDS) 1 cap PO BID vitamin 12/13/21 glimepiride 2 mg tablet 2 mg PO DAILY DM #3 tabs 03/09/23 empagliflozin 10 mg tablet (Jardiance) 10 mg PO DAILY heart failure 30 days #30 tabs 04/26/23 lisinopril 10 mg tablet 10 mg PO DAILY HTN 06/27/23 metoprolol succinate 25 mg tablet,extended release 24 hr 25 mg PO DAILY heart 06/27/23 pantoprazole 40 mg tablet,delayed release (Protonix) 40 mg PO BID stomach 06/27/23 ferrous sulfate 325 mg (65 mg iron) tablet (FeroSul) 325 mg PO BID supplement 11/14/23 aspirin 81 mg tablet,delayed release (Adult Aspirin Regimen) 81 mg PO DAILY heart health 11/18/23 torsemide 10 mg tablet 40 mg (4 x 10 mg) PO DAILY diuretic 30 days #120 tabs 11/20/23 Hospital Course Operations None Procedures 2-D Echocardiogram and Colonoscopy Summary of Care Provided Minutes Spent on Discharge: 32 Hospital Course: This 83-year-old white male was seen in the emergency room at [facility] with complaints of worsening shortness of breath over the last several days, patient had been discharged from the hospital approximately 5 days prior, he had worsening shortness of breath today and EMS was called, EMS reported that the patient's pulse ox was in the 80s on his home O2 satting, he was transferred on nonrebreather to the emergency room at [facility] for evaluation. Labs were obtained in the emergency room, CBC was remarkable for hemoglobin of 6.8, chemistry profile revealed an abnormal creatinine at 3.44 and abnormal BUN at 101, glucose was 314, troponin was elevated at 146 and beta natruretic peptide was elevated at 149. Chest x-ray showed cardiomegaly and CHF. Patient was admitted to PCU, initially he was given diuretics but these were stopped by nephrology was consulted on the case due to the patient's elevated creatinine, patient was given a unit of packed red blood cells initially, patient's oxygen requirement stabilized and unfortunately his hemoglobin dropped during his hospitalization and it was felt that a workup for his anemia would be warranted. Patient underwent a colonoscopy that showed only some colonic polyps which were removed. This was not felt to be the etiology for the patient's anemia. Patient was transfused 2 units of packed red cells before his colonoscopy and his hemoglobin remained stable afterwards. On 12/10/2023, patient was seen and examined: On examination he appeared in good health and spirits. Vital signs as documented. Skin warm and dry and without overt rashes. Neck without JVD, neck was supple, trachea midline, thyroid was normal. Lungs clear bilaterally, normal air movement was noted. Heart exam notable for regular rhythm, normal sounds and absence of murmurs, rubs or gallops. Abdomen unremarkable and without evidence of organomegaly, masses, or abdominal aortic enlargement. Bowel sounds are present, abdomen is not distended. Extremities nonedematous, no cyanosis was noted, no clubbing was noted. Neuro: Cranial nerves II through XII are grossly intact, no focal motor deficits were noted, sensation to light touch and pinprick intact, motor exam 5/5 throughout. Psych: Patient is alert and oriented x3, he does not appear anxious or depressed, he does not appear agitated. Patient appears stable for discharge home on 12/10/2023. Weight / BMI Weight Weight: 87.5 kg Body Mass Index (BMI) 32.1 ABG / Lab / Microbiology Data 12/10/23 05:10 12/10/23 05:10 Laboratory: Laboratory Results - last 24 hr 12/09/23 20:31: POC Glucose 138 H 12/10/23 05:10: WBC 4.3 L, RBC 3.06 L, Hgb 9.4 L, Hct 28.8 L, MCV 94.1 H, MCH 30.7, MCHC 32.6, RDW Std Deviation 48.5 H, RDW Coeff of John 14.4, Plt Count 89 L , MPV 11.3, Immature Gran % (Auto) 0.500, Neut % (Auto) 68.4, Lymph % (Auto) 16.7 L, Early % (Auto) 7.2, Eos % (Auto) 6.5 H, Baso % (Auto) 0.7, Absolute Neuts (auto) 2.9, Absolute Lymphs (auto) 0.72 L, Nucleated RBC % 0, PT 15.5 H, INR 1.2, APTT 32.0, Sodium 145, Potassium 4.8, Chloride 108 H, Carbon Dioxide 26.0, Anion Gap 11, BUN 80 H, Creatinine 1.87 H, Estim Creat Clear Calc 29.90, Est GFR (MDRD) Af Amer 44 L, Est GFR (MDRD) Non-Af 37 L, BUN/Creatinine Ratio 42.8 H, G lucose 147 H, Hemoglobin A1c 5.9 H, Calcium 9.1 12/10/23 06:15: POC Glucose 136 H 12/10/23 11:54: POC Glucose 142 H 12/10/23 17:35: POC Glucose 113 H Microbiology: Microbiology 12/08/23 19:17 Stool Stool Occult Blood (CLARY) - Final Occult Blood Positive 12/06/23 14:05 Mucosa - Nose SARS-CoV-2, Influenza & RSV (PCR) - Final D/C Instructions Discharge Diet: No restrictions Weight Bearing Status: Full weight bearing Meaningful Use Info Meaningful Use Meaningful Use Diagnoses (Choose all that apply): CHF CHF RICH/ARB ordered at discharge?: Yes Documented LVEF (%): 55 Ischemic Stroke Statin Dosing Therapy Reference: STATIN DOSE THERAPY REFERENCE: * Patients > 75 years receive moderate or high dose statin therapy. * Patients 75 years or YOUNGER should receive HIGH intensity statin dose unless contraindicated. You will be required to document reason for non-treatment if statin daily dose does not meet guidelines. HIGH DOSE STATIN THERAPY DAILY Atorvastatin > than or = to 40 mg Rosuvastatin > than or = to 20 mg Amlodipine + Atorvastatin > than or = to 2.5/40 mg Ezetimibe + Simvastatin 10/80 mg Simvastatin 80mg Discharge Plan Admission Admit Date/Time: 12/06/23 16:29 Primary Reason for Your Visit: Acute on chronic heart failure Attending Provider: Anthony Sosa Primary Care Provider: Emeka Hernandez Consulting Providers: Anderson Hammond; Jennifer Pardo; Barber Martell; John Anders Discharge Orders/Prescriptions Prescriptions: Continued atorvastatin 80 mg tablet 80 mg PO DAILY ipratropium-albuterol 0.5 mg-3 mg(2.5 mg base)/3 mL solution for nebulization 3 ml inhalation 4X/DAY PRN (Reason: sob) Patient Comments: inhale contents of 1 vial ( 3 milliliters ) in nebulizer by mouth... (REFER TO PRESCRIPTION NOTES). liothyronine 25 mcg tablet 25 mcg PO DAILY Patient Comments: TAKE 1 TABLET BY MOUTH ONCE DAILY FOR 90 DAYS tiotropium bromide [Spiriva with HandiHaler] 18 mcg capsule, w/inhalation device 18 mcg INHALATION DAILY Patient Comments: INHALE THE CONTENTS OF 1 CAPSULE TWICE EACH TIME VIA HANDIHALER ONCE DAILY cholecalciferol (vitamin D3) 25 mcg (1,000 unit) Capsule 25 mcg PO DAILY PreserVision AREDS 14,320-226-200 mgak-el-afom Capsule 1 cap PO BID Jardiance 10 mg Tablet 10 mg PO DAILY 30 Days Qty: 30 0RF glimepiride 2 mg tablet 2 mg PO DAILY Qty: 3 0RF Patient Comments: take 1 tablet by mouth once daily WITH FIRST MEAL OF THE DAY Rx Instructions: Hold if glucose less than 130 mg/dl lisinopril 10 mg tablet 10 mg PO DAILY pantoprazole [Protonix] 40 mg tablet,delayed release (DR/EC) 40 mg PO BID metoprolol succinate 25 mg tablet extended release 24 hr 25 mg PO DAILY ferrous sulfate [FeroSul] 325 mg (65 mg iron) tablet 325 mg PO BID aspirin [Adult Aspirin Regimen] 81 mg tablet,delayed release (DR/EC) 81 mg PO DAILY torsemide 10 mg tablet 40 mg PO DAILY 30 Days Qty: 120 0RF Discontinued omega-3 fatty acids-vitamin E 1,000 mg Capsule 2 cap PO BID Referrals / Follow Up: Manuela Washburn DO [Med Staff - Consulting] - See Referral Note (As scheduled) Emeka Hernandez MD [Primary Care Provider] - Within 2 Weeks Fredy Joy DO [Med Staff - Active Staff] - See Referral Note (In 2 weeks, call office for an appointment) Disposition Disposition (needs filled in before D/C Order can be placed): Home, Self Care Charges/Coding Visit Charges Inpatient E&M: 00041 Disch Hosp >30min
== END 2023-12-10 18:53 | disposition home or self-care (01) | DRG 280 ==
LOC: ED 14:30 → PCU 17:57
PROVIDERS: Anesthesiology; Family Medicine; Internal Medicine Gastroenterology; Admitting Provider Internal Medicine; Emergency Provider Emergency Medicine; PCP Family Medicine; Visit Provider Internal Medicine
PROC: 0DJD8ZZ Inspection of Lower Intestinal Tract, Via Natural or Artificial Opening Endoscopic (ICD-10-PCS; CPT 45378; principal; 2023-12-10 16:25)
DX: I13.0 Hypertensive heart and chronic kidney disease with heart failure and stage 1 through stage 4 chronic kidney disease, or unspecified chronic kidney disease (principal); I21.4 Non-ST elevation (NSTEMI) myocardial infarction; J96.21 Acute and chronic respiratory failure with hypoxia; I50.33 Acute on chronic diastolic (congestive) heart failure; D59.4 Other nonautoimmune hemolytic anemias; I24.89 Other forms of acute ischemic heart disease; K92.2 Gastrointestinal hemorrhage, unspecified; N18.4 Chronic kidney disease, stage 4 (severe); N17.9 Acute kidney failure, unspecified; E11.22 Type 2 diabetes mellitus with diabetic chronic kidney disease; J44.9 Chronic obstructive pulmonary disease, unspecified; E03.9 Hypothyroidism, unspecified; D50.0 Iron deficiency anemia secondary to blood loss (chronic); I35.0 Nonrheumatic aortic (valve) stenosis; D50.8 Other iron deficiency anemias; K21.9 Gastro-esophageal reflux disease without esophagitis; I25.10 Atherosclerotic heart disease of native coronary artery without angina pectoris; K57.30 Diverticulosis of large intestine without perforation or abscess without bleeding; K63.5 Polyp of colon; E78.2 Mixed hyperlipidemia; I25.2 Old myocardial infarction; Z87.891 Personal history of nicotine dependence; Z79.82 Long term (current) use of aspirin; Z79.84 Long term (current) use of oral hypoglycemic drugs; Z79.890 Hormone replacement therapy; R80.9 Proteinuria, unspecified; Z86.73 Personal history of transient ischemic attack (TIA), and cerebral infarction without residual deficits; Z79.899 Other long term (current) drug therapy; Z98.49 Cataract extraction status, unspecified eye; R79.89 Other specified abnormal findings of blood chemistry; R94.31 Abnormal electrocardiogram [ECG] [EKG]; Z99.81 Dependence on supplemental oxygen
CPT/HCPCS: 36415; 71045; 76770; 80048; 80053; 82274; 82436; 82728; 82803; 82962; 83036; 83540; 83550; 83735; 83880; 84100; 84133; 84300; 84484; 84540; 85018; 85025; 85610; 85730; 86644; 86850; 86900; 86901; 86920; 86922; 87631; 88305; 93005; 93308; 94640; 94668; 97165; 99252; 99285; J7040; J7120; P9016; Q9957; A4216; C8924; G0463; J1940

== ENCOUNTER → 2023-12-13 | Outpatient (CLI) | payer MEDICARE, SELFPAY ==
[2023-12-13 11:01] LABS: Absolute Lymphocyte Count 1.19 X10^3/uL (0.83-4.51); Absolute Neutrophil Count 3.2 X10^3/uL (2.0-7.7); Basophil# 0.02 X10^3/uL; Basophil% 0.4 % (0-1); Eosinophil# 0.44 X10^3/uL; Eosinophils% 8.2 % (0-5); Hematocrit 30.3 % (40-54); Hemoglobin 9.7 g/dL (13.0-16.5); Lymphocyte # 1.19 X10^3/ul (0.83-4.51); Lymphocyte % 22.2 % (19-41); Mean Corpuscular Hgb 30.4 pg (27.0-32.0); Mean Platelet Vol. 10.3 fl (6.2-12.0); Monocyte# 0.48 X10^3/uL; NRBC Flagged by Analyzer 0 % (0-5); Neutrophil # 3.21 X10^3/uL (2.7-7.7); Neutrophil % 59.8 % (47-70); Platelet Count 152 K/mm3 (150-450); RBC Distribution Width CV 13.2 % (11.6-14.6); RBC Distribution Width SD 45.6 fl (35.1-43.9); Red Blood Count 3.19 M/mm3 (4.6-6.2); White Blood Count 5.4 K/mm3 (4.4-11.0)
[2023-12-13 12:04] LABS: Anion Gap 6 (5-15); BUN 71 mg/dL (7-18); Chloride 110 mmol/L (98-107); Creatinine, Serum 2.37 mg/dL (0.70-1.30); EST Glomerular Filtration Rate 28 mL/min (>60); Est Glom Filt Rate - Afr Amer 34 mL/min (>60); Glucose 88 mg/dL (74-106); Iron 39 ug/dL (65-175); Iron Binding Capacity,Total 268 ug/dL (250-450); PERCENT IRON SATURATION 14.6 % (15.0-55.0); Potassium 4.8 mmol/L (3.5-5.1); Sodium Level 144 mmol/L (136-145)
== END | disposition home or self-care (01) ==
LOC: POLAB3 10:03
PROVIDERS: PCP Family Medicine; Visit Provider Internal Medicine Nephrology
DX: N17.9 Acute kidney failure, unspecified (principal); D50.9 Iron deficiency anemia, unspecified
CPT/HCPCS: 36415; 80048; 83540; 83550; 85025

== ENCOUNTER 2023-12-26 14:05 | Inpatient (IN) | payer MEDICARE, SELFPAY ==
[2023-12-26] VITALS (13 sets, daily range): BP systolic 92–143; BP diastolic 44–125; PULSE 70–96; RESP 12–95; TEMP 36.3–36.7; O2SAT 97–100; BMI 30.4
--- NOTE | 2023-12-26 14:16 | EKG12_ITS ---
Test Reason : gen Blood Pressure : / mmHG Vent. Rate : 085 BPM Atrial Rate : 085 BPM P-R Int : 208 ms QRS Dur : 090 ms QT Int : 360 ms P-R-T Axes : 000 -21 137 degrees QTc Int : 428 ms Sinus rhythm with Premature atrial complexes Nonspecific T wave abnormality Abnormal ECG Confirmed by Trell Kendrick ([id number]), offline editor ZACKARY MARTINEZ ([id number]) on 12/27/2023 10:39:44 AM Referred By: Confirmed By:Trell Kendrick
--- NOTE | 2023-12-26 14:18 | RAD_ITS ---
INDICATION: chest pain EXAMINATION/TECHNIQUE: X-RAY - XR Chest 1 View AP portable. 2:17 PM COMPARISON: Prior study dated: 10/05/2023 FINDINGS: LINES/DEVICES: None. LUNGS: No consolidation. No pneumothorax. MEDIASTINUM: Unremarkable. CARDIAC SILHOUETTE: Not enlarged. BONES AND SOFT TISSUES: No acute abnormalities. RAD/Chest 1 View (Portable) IMPRESSION: No evidence of active intrathoracic disease. Electronically Signed: Jannette Moya MD at 14:30 EDT ,
--- NOTE | 2023-12-26 14:22 | ED.VIS.DYS ---
HPI History of Present Illness Chief Complaint: Shortness of Breath Informant: patient Onset/Context/Timing Onset: Today and Yesterday Context: gradual Current Severity: Mild Maximum Severity: Mild Associated Symptoms Negative for cough Chest Pain: Positive for None Narrative Narrative: 83-year-old male extensive past medical history including COPD for which he is on 4 L of oxygen at home., CHF, CKD, NC, diabetes, TIA, aortic valve stenosis, anemia and GI bleed. Recent admission about 3 weeks ago for GI bleed. States yesterday show shortness of breath and has noticed black stool again. Denies any chest pain or wheezing. He is on aspirin but no other blood thinners. Said he had a recent colonoscopy. PE Risk Factors: Positive for Recent immobilization; Negative for Cancer, OCP + Smoking + > 35, Prior DVT or PE, Recent surgery or Recent travel Prior similar symptoms: Yes Recent Illness/Hospitalization: Yes [facility] Medical History Acute on chronic renal insufficiency Acute on chronic anemia Symptomatic anemia Abnormal ECG Elevated troponin Shortness of breath Acute upper gastrointestinal bleeding Anemia Essential hypertension Renal insufficiency Non-ST elevation (NSTEMI) myocardial infarction COPD (chronic obstructive pulmonary disease) Loss of hearing No natural teeth Wears glasses Poor historian Thyroid disease Low iron High cholesterol Syncope History of GI bleed Shortness of breath on exertion History of echocardiogram Cardiology follow-up encounter Symptomatic anemia Diabetes Kidney disease Former smoker On home oxygen therapy TIA (transient ischemic attack) Myocardial infarct Hypertension Diastolic CHF Acute and chronic respiratory failure with hypoxia History of CAD (coronary artery disease) Nonrheumatic aortic (valve) stenosis Mild left ventricular hypertrophy History of left heart catheterization (LHC) (~03/15/22) Atherosclerotic heart disease of [place] coronary artery without angina pectoris Aortic valve stenosis, acquired CAD (coronary artery disease) COPD (chronic obstructive pulmonary disease) Polyarthralgia Diabetes mellitus, type 2 Former tobacco use Obesity Hypothyroidism HLD (hyperlipidemia) HTN (hypertension) Chronic respiratory failure with hypoxia Home Medications ?Medication ?Instructions ?Recorded ?Last Taken ?Type atorvastatin 80 mg tablet 80 mg PO DAILY CHOLESTEROL 05/02/21 12/05/23 History cholecalciferol (vitamin D3) 25 25 mcg PO DAILY vitamin 05/02/21 12/06/23 History mcg (1,000 unit) capsule ipratropium 0.5 mg-albuterol 3 mg 3 ml inhalation 4X/DAY PRN sob 05/02/21 11/18/23 History (2.5 mg base)/3 mL nebulization soln liothyronine 25 mcg tablet 25 mcg PO DAILY THYROID 05/02/21 12/06/23 History tiotropium bromide 18 mcg capsule 18 mcg inhalation DAILY SOB 05/02/21 11/17/23 History with inhalation device (Spiriva with HandiHaler) vitamins A,C,O-axvn-ycgfsz 4,296 1 cap PO BID vitamin 12/13/21 12/06/23 History mcg-226 mg-90 mg capsule (PreserVision AREDS) glimepiride 2 mg tablet 2 mg PO DAILY DM #3 tabs 03/09/23 12/06/23 Rx empagliflozin 10 mg tablet 10 mg PO DAILY heart failure 30 04/26/23 12/06/23 Rx (Jardiance) days #30 tabs lisinopril 10 mg tablet 10 mg PO DAILY HTN 06/27/23 12/06/23 History metoprolol succinate 25 mg 25 mg PO DAILY heart 06/27/23 12/05/23 History tablet,extended release 24 hr pantoprazole 40 mg tablet,delayed 40 mg PO BID stomach 06/27/23 12/06/23 History release (Protonix) ferrous sulfate 325 mg (65 mg 325 mg PO BID supplement 11/14/23 12/06/23 History iron) tablet (FeroSul) aspirin 81 mg tablet,delayed 81 mg PO DAILY heart health 11/18/23 12/06/23 History release (Adult Aspirin Regimen) torsemide 10 mg tablet 40 mg (4 x 10 mg) PO DAILY 11/20/23 12/06/23 Rx diuretic 30 days #120 tabs Allergy/AdvReac Type Severity Reaction Status Date / Time aliskiren (From Valt[place]a) Allergy Intermediate Other Verified 12/06/23 13:33 valsartan (From [place]) Allergy Intermediate Other Verified 12/06/23 13:33 codeine AdvReac Upset Verified 12/06/23 13:33 Stomach Family History Mother CVA (cerebral vascular accident) Heart disease Myocardial infarction Hx of CABG Hypertension Father CVA (cerebral vascular accident) Heart disease Surgical History S/P cataract extraction Social History household members: none housing: house Smoking Status: Former smoker how long ago did patient quit smoking: Quit 2011, prior 1 ppd since teen. alcohol intake: former year quit: 2010 substance use type: does not use ROS ROS ED ROS Narrative Shortness of breath. Black stool. Constitutional Constitutional ED: Denies chills or fever(s) Eyes Eyes: Denies blurry vision ENT ENT ED: Denies ear pain Cardiovascular Cardiovascular: Denies chest pain Respiratory/Chest Respiratory/Chest: Reports dyspnea; Denies cough Gastrointestinal Gastrointestinal: Denies abdominal pain Genitourinary Genitourinary ED: Denies dysuria or hematuria Musculoskeletal Musculoskeletal: Denies arthralgias Integumentary Denies abscess Neurologic Neurologic: Denies headache(s) Psychiatric Psychiatric: Denies anxiety Endocrine Endocrinology: Denies cold intolerance Hematologic/Lymphatic Hematologic/Lymphatic: Denies easy bleeding Allergic/Immunologic Allergic/Immunologic ED: Denies mouth swelling, tongue swelling or urticaria EXAM Physical Exam Narrative Exam Narrative: 83-year-old male no acute distress vital signs stable afebrile. On 3 to 4 L he is 97% no hypoxia with oxygen. H EENT exam unremarkable. Neck nontender JVD. Lungs clear to auscultation bilaterally. Equal symmetrical. No distress. Heart regular rhythm rate about 95 no murmur. Chest wall ribs nontender. Abdomen soft nontender. No peritoneal signs. Moving all 4 extremities. Nontender no edema. Back nontender. He is awake and alert. Answering questions following commands. Const Vital Signs: 12/26/23 14:10 12/26/23 14:26 12/26/23 14:27 Temperature 97.8 F Temperature Source Temporal Pulse Rate 96 Respiratory Rate 95 H Respiratory Effort Normal Short of Breath Blood Pressure 120/62 Blood Pressure Mean 81 Pulse Ox 97 98 Oxygen Delivery Method Room Air Nasal Cannula Nasal Cannula Oxygen Flow Rate (L/min) 4 4 12/26/23 15:08 Temperature Temperature Source Pulse Rate 88 Respiratory Rate 14 Respiratory Effort Blood Pressure 122/57 H Blood Pressure Mean 78 Pulse Ox 100 Oxygen Delivery Method Nasal Cannula Oxygen Flow Rate (L/min) 4 Positive well nourished and well developed; Negative for cachectic, contractures or unkempt General Appearance ED: well developed and NAD; Negative for unkempt, cachectic, contractures or pallor Nutritional Appearance: Negative for cachectic HEENT Reports moist mucous membranes atraumatic; Negative for trauma or tenderness Eyes PERRL and EOMs intact bilaterally General Eye ED: Negative for pale conjunctiva or scleral icterus Neck no lymphadenopathy, supple, no meningeal signs and no JVD General: Negative for tenderness Resp normal respiratory effort and clear to auscultation bilaterally Auscultation: Negative for rales, rhonchi, wheezes or diminished lung sounds Cardio regular rate, regular rhythm, S1 normal heart sound, S2 normal heart sound and no murmurs Rate: Negative for bradycardia or tachycardic Rhythm: Negative for abnormal rhythm GI non-tender, non-distended and no masses Palpation: Negative for tender, guarding or rebound tenderness present Back/Spine no CVA tenderness and normal to inspection General Back: Negative for CVA tenderness Extremity normal to inspection General Extremety ED: Negative for edema or tenderness General Extremity: Negative for edema Neuro oriented x3 and CN's II-XII intact bilaterally Sensorium / Orientation: alert, oriented to person, oriented to place and oriented to time Motor Exam: strength 5/5 throughout Psych mental status grossly normal Appearance: Negative for unkempt Mood & Affect: Negative for depressed Thought Process: normal thought process Skin no wounds and skin turgor normal General Skin Exam: Negative for jaundice or pallor Lesions: no lesions Rashes: no rashes MDM MDM MDM Narrative Medical decision making narrative: 83-year-old male with shortness of breath is extensive past medical history. Also black stool. Rule out multiple causes of dyspnea including possible GI bleed. Screening labs EKG and chest x-ray. Type and screen. Repeat exam unchanged. I did do a rectal exam on the patient he had some dry stool around his anus that was black when I rectal lysing is on a small amount of stool and it was brown not enough to Hemoccult. No gross red blood. No clots. I spoke to the hospitalist patient will be admitted. May or may not have a recurrent GI bleed. To be determined. Hospitalist wanted me to contact Dr. Joy who I have on page. History & Record Review Discussion w/independent historian: Patient Additional record(s) reviewed:: Prior inpatient record, Prior outpatient record, Prior ED visit and Prior labs Lab Data Attestation: I reviewed the patient's lab results. Lab results narrative: CBC shows a white count of 5. H&H 8.3 and 25.9. Platelets 124. Patient has a history of anemia this is lower than recent blood counts. Electrolytes show gap 7. BUN of 2025. Creatinine 2.75. Which is higher than his baseline. But he does have chronic kidney disease. Glucose 169. Troponin 30. Chest x-ray chronic changes. Labs: Laboratory Results - last 24 hr 12/26/23 14:20 WBC 5.6 RBC 2.71 L Hgb 8.3 L Hct 25.9 L MCV 95.6 H MCH 30.6 MCHC 32.0 RDW Std Deviation 47.5 H RDW Coeff of John 13.8 Plt Count 124 L MPV 11.8 Immature Gran % (Auto) 0.500 Neut % (Auto) 72.0 H Lymph % (Auto) 15.4 L Carroll % (Auto) 7.5 Eos % (Auto) 4.1 Baso % (Auto) 0.5 Absolute Neuts (auto) 4.0 Absolute Lymphs (auto) 0.86 Nucleated RBC % 0 Sodium 144 Potassium 4.6 Chloride 108 H Carbon Dioxide 30.0 Anion Gap 7 BUN 126 H* Creatinine 2.75 H Estim Creat Clear Calc 19.84 Est GFR (MDRD) Af Amer 28 L Est GFR (MDRD) Non-Af 24 L BUN/Creatinine Ratio 45.8 H Glucose 169 H Calcium 9.1 Troponin I High Sens 30 Radiography Chest X-Ray - ED: 1 View, Read by ED Physician, Read by Radiologist, Heart, Lungs, Mediastinum, Bony Structures, No Acute Disease and Chronic Changes Diagnostic Testing: Clinical Impression(s) from Imaging Studies Chest X-Ray 12/26/23 14:18 IMPRESSION: No evidence of active intrathoracic disease. Electronically Signed: Jannette Moya MD at 14:30 EDT , Chest x-ray, portable, single view interpreted by myself and radiologist shows chronic changes no acute process. Normal cardiac silhouette. No pneumonia. No effusion. Open Rhythm Strip Rhythm Strip: Sinus Rhythm Rate: 85 Ectopy: PAC(s) EKG Initial EKG: Attestation: I personally reviewed and interpreted this EKG as follows: Interpretation: Sinus Rhythm and No Acute Injury Pattern Comments: Sinus rhythm rate 85 with PACs. No acute signs of NC or ischemia. Discharge Plan Triage Chief Complaint: Shortness of Breath Other Complaint: GI Bleed ED Provider: Dimitry Lott Dx/Rx/DC Orders Prescriptions: No Action atorvastatin 80 mg tablet 80 mg PO DAILY ipratropium-albuterol 0.5 mg-3 mg(2.5 mg base)/3 mL solution for nebulization 3 ml inhalation 4X/DAY PRN (Reason: sob) Patient Comments: inhale contents of 1 vial ( 3 milliliters ) in nebulizer by mouth... (REFER TO PRESCRIPTION NOTES). liothyronine 25 mcg tablet 25 mcg PO DAILY Patient Comments: TAKE 1 TABLET BY MOUTH ONCE DAILY FOR 90 DAYS tiotropium bromide [Spiriva with HandiHaler] 18 mcg capsule, w/inhalation device 18 mcg INHALATION DAILY Patient Comments: INHALE THE CONTENTS OF 1 CAPSULE TWICE EACH TIME VIA HANDIHALER ONCE DAILY cholecalciferol (vitamin D3) 25 mcg (1,000 unit) Capsule 25 mcg PO DAILY PreserVision AREDS 14,320-226-200 [id number] Capsule 1 cap PO BID Jardiance 10 mg Tablet 10 mg PO DAILY 30 Days Qty: 30 0RF glimepiride 2 mg tablet 2 mg PO DAILY Qty: 3 0RF Patient Comments: take 1 tablet by mouth once daily WITH FIRST MEAL OF THE DAY Rx Instructions: Hold if glucose less than 130 mg/dl lisinopril 10 mg tablet 10 mg PO DAILY pantoprazole [Protonix] 40 mg tablet,delayed release (DR/EC) 40 mg PO BID metoprolol succinate 25 mg tablet extended release 24 hr 25 mg PO DAILY ferrous sulfate [FeroSul] 325 mg (65 mg iron) tablet 325 mg PO BID aspirin [Adult Aspirin Regimen] 81 mg tablet,delayed release (DR/EC) 81 mg PO DAILY torsemide 10 mg tablet 40 mg PO DAILY 30 Days Qty: 120 0RF Primary Care Provider: Emeka Hernandez Referrals: Emeka Hernandez MD [Primary Care Provider] - Print Language: Turkish
[2023-12-26 14:30] LABS: Absolute Lymphocyte Count 0.86 X10^3/uL (0.83-4.51); Basophil# 0.03 X10^3/uL; Basophil% 0.5 % (0-1); Eosinophil# 0.23 X10^3/uL; Eosinophils% 4.1 % (0-5); Hematocrit 25.9 % (40-54); Hemoglobin 8.3 g/dL (13.0-16.5); Lymphocyte # 0.86 X10^3/ul (0.83-4.51); Lymphocyte % 15.4 % (19-41); Mean Corpuscular Hgb 30.6 pg (27.0-32.0); Mean Corpuscular Volume 95.6 fL (80-94); Mean Platelet Vol. 11.8 fl (6.2-12.0); Monocyte# 0.42 X10^3/uL; Monocyte% 7.5 % (0-10); NRBC Flagged by Analyzer 0 % (0-5); Platelet Count 124 K/mm3 (150-450); RBC Distribution Width CV 13.8 % (11.6-14.6); RBC Distribution Width SD 47.5 fl (35.1-43.9); Red Blood Count 2.71 M/mm3 (4.6-6.2); White Blood Count 5.6 K/mm3 (4.4-11.0)
[2023-12-26 14:53] LABS: Anion Gap 7 (5-15); BUN 126 mg/dL (7-18); BUN/Creat Ratio 45.8 RATIO (10-20); Calcium,Total 9.1 mg/dL (8.5-10.1); Chloride 108 mmol/L (98-107); Creatinine, Serum 2.75 mg/dL (0.70-1.30); EST Glomerular Filtration Rate 24 mL/min (>60); Est Glom Filt Rate - Afr Amer 28 mL/min (>60); Estimated Creatinine Clearance 19.84 ml/min; Glucose 169 mg/dL (74-106); Potassium 4.6 mmol/L (3.5-5.1); Sodium Level 144 mmol/L (136-145); Troponin-I HS 30 pg/mL (3.0-78.0)
--- NOTE | 2023-12-26 15:03 | ED.RN ---
Patient observed yelling for help into hallway. Patient states he needs help finding his nasal cannula. Patient was observed standing up out of bed attempting to ambulate without assistance. Patient was assisted to chair in room on other side of the bed, nasal cannula replaced and call light placed within reach. Denies any other needs at this time.
--- NOTE | 2023-12-26 15:41 | HP.PCM.HOS_ITS ---
HPI - General General Date of Admission: 12/26/23 Date of Service: 12/26/23 Chief Complaint: Blackish stool. LLQ pain today similar to few weeks ago. HPI Narrative BEULAH BRIGHT, is a 83 M came to ED for black dark school for the last few days. Patient could not tell me exact amount and how many frequency of stool per day. He also had cramps over the left lower quadrant today. Patient had similar left lower quadrant cramp about 3 weeks ago when he was admitted. He could not describe completely about the abdominal cramps but it happens sometimes without relation to food. Patient was in the hospital recently for GI bleed and was discharged on 12/10/2023 after colonoscopy and had two 1 to 2 mm polyps in sigmoid colon removed and diverticulosis in the rectosigmoid colon and sigmoid colon. There is no recent EGD. Patient denies dizziness lightheadedness. No fever or chills. Patient has history of COPD and is on 4 L of home oxygen. Denies chronic liver disease. Patient used to drink on weekends mainly beer but quit his smoking and alcohol in 2010. Vitals labs reviewed. Patient further admitted. [facility] Medical History Acute on chronic renal insufficiency Acute on chronic anemia Symptomatic anemia Abnormal ECG Elevated troponin Shortness of breath Acute upper gastrointestinal bleeding Anemia Essential hypertension Renal insufficiency Non-ST elevation (NSTEMI) myocardial infarction COPD (chronic obstructive pulmonary disease) Loss of hearing No natural teeth Wears glasses Poor historian Thyroid disease Low iron High cholesterol Syncope History of GI bleed Shortness of breath on exertion History of echocardiogram Cardiology follow-up encounter Symptomatic anemia Diabetes Kidney disease Former smoker On home oxygen therapy TIA (transient ischemic attack) Myocardial infarct Hypertension Diastolic CHF Acute and chronic respiratory failure with hypoxia History of CAD (coronary artery disease) Nonrheumatic aortic (valve) stenosis Mild left ventricular hypertrophy History of left heart catheterization (LHC) (~03/15/22) Atherosclerotic heart disease of [place] coronary artery without angina pectoris Aortic valve stenosis, acquired CAD (coronary artery disease) COPD (chronic obstructive pulmonary disease) Polyarthralgia Diabetes mellitus, type 2 Former tobacco use Obesity Hypothyroidism HLD (hyperlipidemia) HTN (hypertension) Chronic respiratory failure with hypoxia Home Medications ?Medication ?Instructions ?Recorded ?Last Taken ?Type atorvastatin 80 mg tablet 80 mg PO DAILY CHOLESTEROL 05/02/21 12/05/23 History cholecalciferol (vitamin D3) 25 25 mcg PO DAILY vitamin 05/02/21 12/06/23 History mcg (1,000 unit) capsule ipratropium 0.5 mg-albuterol 3 mg 3 ml inhalation 4X/DAY PRN sob 05/02/21 11/18/23 History (2.5 mg base)/3 mL nebulization soln liothyronine 25 mcg tablet 25 mcg PO DAILY THYROID 05/02/21 12/06/23 History tiotropium bromide 18 mcg capsule 18 mcg inhalation DAILY SOB 05/02/21 11/17/23 History with inhalation device (Spiriva with HandiHaler) vitamins A,C,K-yews-ahiffw 4,296 1 cap PO BID vitamin 12/13/21 12/06/23 History mcg-226 mg-90 mg capsule (PreserVision AREDS) glimepiride 2 mg tablet 2 mg PO DAILY DM #3 tabs 03/09/23 12/06/23 Rx empagliflozin 10 mg tablet 10 mg PO DAILY heart failure 30 04/26/23 12/06/23 Rx (Jardiance) days #30 tabs lisinopril 10 mg tablet 10 mg PO DAILY HTN 06/27/23 12/06/23 History metoprolol succinate 25 mg 25 mg PO DAILY heart 06/27/23 12/05/23 History tablet,extended release 24 hr pantoprazole 40 mg tablet,delayed 40 mg PO BID stomach 06/27/23 12/06/23 History release (Protonix) ferrous sulfate 325 mg (65 mg 325 mg PO BID supplement 11/14/23 12/06/23 History iron) tablet (FeroSul) aspirin 81 mg tablet,delayed 81 mg PO DAILY heart health 11/18/23 12/06/23 History release (Adult Aspirin Regimen) torsemide 10 mg tablet 30 mg PO DAILY diuretic 12/26/23 Unknown History Allergy/AdvReac Type Severity Reaction Status Date / Time aliskiren (From Valturna) Allergy Intermediate Other Verified 12/06/23 13:33 valsartan (From Valturna) Allergy Intermediate Other Verified 12/06/23 13:33 codeine AdvReac Upset Verified 12/06/23 13:33 Stomach Family History Mother CVA (cerebral vascular accident) Heart disease Myocardial infarction Hx of CABG Hypertension Father CVA (cerebral vascular accident) Heart disease Surgical History S/P cataract extraction Social History household members: none housing: house Smoking Status: Former smoker how long ago did patient quit smoking: Quit 2011, prior 1 ppd since teen. alcohol intake: former year quit: 2010 substance use type: does not use ROS ROS Narrative Constitutional: Reports fatigue and weakness. No fever. HEENT: Reports systems reviewed and no addt'l complaints, except as documented Respiratory/Chest: Chronic SOB on exertion. COPD. On 4 L of home oxygen. Chronic wheezing. CVS: No chest pain pressure or tight Gastrointestinal: As described in HPI Genitourinary: Denies burning urination or new urinary tract symptoms Musculoskeletal: Denies acute joint pain or limited range of motion. No acute injury. Chronic arthritis Neurologic: Denies seizure-like symptoms. skin: No ulcer. No rash Endocrinology: Reports systems reviewed and no addt'l complaints, except as documented Hematologic/Lymphatic: Reports systems reviewed and no addt'l complaints, except as documented Rest 14 ROS are negative except as mentioned in HPI Vital Signs Vital Signs Vital Signs: 12/26/23 14:10 12/26/23 14:26 12/26/23 14:27 Temperature 97.8 F Temperature Source Temporal Pulse Rate 96 Respiratory Rate 95 H Respiratory Effort Normal Short of Breath Blood Pressure 120/62 Blood Pressure Mean 81 Pulse Ox 97 98 Oxygen Delivery Method Room Air Nasal Cannula Nasal Cannula Oxygen Flow Rate (L/min) 4 4 12/26/23 15:08 Temperature Temperature Source Pulse Rate 88 Respiratory Rate 14 Respiratory Effort Blood Pressure 122/57 H Blood Pressure Mean 78 Pulse Ox 100 Oxygen Delivery Method Nasal Cannula Oxygen Flow Rate (L/min) 4 Weight Weight: 183 lb 3.266 oz Body Mass Index (BMI) 30.4 Physical Exam Narrative General: Alert, Oriented x3, Cooperative HEENT: Atraumatic, PERRLA, EOMI, Normocephalic Oral oral mucosa dry.: No Gingival or Mucosal Lesions/ Ulcerations Neck: Supple, No JVD, Negative Carotid Bruits Chest wall/Lungs: Air entry diffusely diminished in both lungs. Bilateral wheezing and rhonchi. On 4 L of oxygen. Cardiovascular: Regular rate, Regular Rhythm, Normal S1, Normal S2, systolic murmur right second ICS, aortic stenosis. Abdomen: Bowel Sounds Present, Soft, Non Tender, Non-Distended : No dysuria. No renal angle tenderness. No suprapubic tenderness. Extremities: Mild pitting edema, Capillary Refill Less than 3 Seconds Skin: No rashes, No breakdown Musculoskeletal: No Tenderness to Palpation of Joints or Extremities. 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 Neurological: Cranial nerves II-XII grossly intact, DTR 2+/4. No acute focal neurological deficit. Psych/Mental Status: Flat affect Results Lab / Micro Data 12/26/23 17:03 12/26/23 14:20 Labs: Laboratory Results - last 24 hr 12/26/23 14:20: WBC 5.6, RBC 2.71 L, Hgb 8.3 L, Hct 25.9 L, MCV 95.6 H, MCH 30.6, MCHC 32.0, RDW Std Deviation 47.5 H, RDW Coeff of John 13.8, Plt Count 124 L, MPV 11.8, Immature Gran % (Auto) 0.500, Neut % (Auto) 72.0 H, Lymph % (Auto) 15.4 L, [place] % (Auto) 7.5, Eos % (Auto) 4.1, Baso % (Auto) 0.5, Absolute Neuts (auto) 4.0, Absolute Lymphs (auto) 0.86, Nucleated RBC % 0, Sodium 144, Potassium 4.6, Chloride 108 H, Carbon Dioxide 30.0, Anion Gap 7, BUN 126 H*, C reatinine 2.75 H, Estim Creat Clear Calc 19.84, Est GFR (MDRD) Af Amer 28 L, Est GFR (MDRD) Non-Af 24 L, BUN/Creatinine Ratio 45.8 H, Glucose 169 H, Calcium 9.1, Troponin I High Sens 30, Antibody Screen NEGATIVE Rhythm Strip Rhythm Strip: Sinus Rhythm Rate: 85 Ectopy: PAC(s) Imaging Radiology Impression Chest X-Ray 12/26/23 14:18 IMPRESSION: No evidence of active intrathoracic disease. Electronically Signed: Jannette Moya MD at 14:30 EDT , Assessment & Plan Assessment/Plan (1) Upper GI bleed: PLAN: Plan This 83-year-old gentleman came to ED for black stool for last few days along with left lower quadrant crampy 1. Acute GI bleed most likely upper GI bleed: Patient is being admitted in PCU. H&H 8.3/25.9%. IV pantoprazole every 12 hourly. Monitor H&H Q6 hourly. Does not have chronic liver disease and last CT abdomen showed normal liver. Therefore I do not think he needs octreotide or IV ceftriaxone. 2. Chronic normocytic anemia probably from GI blood loss and chronic thrombocytopenia: Patient baseline H&H is around 9.5/28%. It dropped to 8.3/26%. Does not meet criteria for acute anemia. Patient also has chronic thrombocytopenia, platelet count baseline 88,000. Most recent 124,000 today. INR normal 1.1. 3. COPD and chronic hypoxic respiratory failure on home oxygen: Patient is states that he is on 3.5 L of home oxygen. DuoNeb every 6 hourly for 1 day and then as needed. Does not seem to be in acute exacerbation. Chest x-ray does not show acute pulmonary abnormality but COPD 4. 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 Baseline BUN/creatinine is around 71/2.2-2.37. BUN/creatinine ratio is 45.8 probably from upper GI bleed. Continue IV fluid normal saline. Hold torsemide, lisinopril, glimepiride and Jardiance. 5. CAD without angina, aortic stenosis, mild LVH, carotid artery stenosis: Home cardiac medications continued except aspirin and lisinopril continued. On atorvastatin and metoprolol. 6. DM type II: Hold Jardiance and glimepiride. Accu-Chek before meals and at bedtime with Humalog sliding scale coverage and hypoglycemia protocol. 7. Recent colonoscopy with polypectomy as described below Colonoscopy: 12/10/2019 Impression: - Two 1 to 2 mm polyps in the sigmoid colon, removed with a cold snare. Resected and retrieved. - Diverticulosis in the recto-sigmoid colon and in the sigmoid colon. - The examination was otherwise normal on direct and retroflexion views. 8. DVT prophylaxis: High risk of thromboembolism and bleeding therefore pharmacological prophylaxis contacted with no active GI bleed. Bilateral SCDs Living will/advanced directive/end of life care: Patient does not have living will or advanced directive. His daughter is power of deputy county attorney for his health. After discussion of benefits/risks procedures involved with full code, DNR CC arrest and DNR CC, the patient opted for DNR CC arrest without intubation Patient doesn't want artificial life support including intubation, tube feed, ventilator and/chest compression, central venous catheter, vasopressor and DC shock if needed Total time spent in [id number] encounter in discussion of advanced directive 17 minutes. Laboratory Results 12/26/23 14:20: WBC 5.6, RBC 2.71 L, Hgb 8.3 L, Hct 25.9 L, MCV 95.6 H, MCH 30.6, MCHC 32.0, RDW Std Deviation 47.5 H, RDW Coeff of John 13.8, Plt Count 124 L, MPV 11.8, Immature Gran % (Auto) 0.500, Neut % (Auto) 72.0 H, Lymph % (Auto) 15.4 L, [place] % (Auto) 7.5, Eos % (Auto) 4.1, Baso % (Auto) 0.5, Absolute Neuts (auto) 4.0, Absolute Lymphs (auto) 0.86, Nucleated RBC % 0, Sodium 144, Potassium 4.6, Chloride 108 H, Carbon Dioxide 30.0, Anion Gap 7, BUN 126 H*, C reatinine 2.75 H, Estim Creat Clear Calc 19.84, Est GFR (MDRD) Af Amer 28 L, Est GFR (MDRD) Non-Af 24 L, BUN/Creatinine Ratio 45.8 H, Glucose 169 H, Calcium 9.1, Troponin I High Sens 30, B-Natriuretic Peptide Pending, Blood Type A NEGATIVE, Antibody Screen Pending Clinical Impression(s) from Imaging Studies Chest X-Ray 12/26/23 14:18 IMPRESSION: No evidence of active intrathoracic disease. Charges/Coding Visit Charges Inpatient E&M: 53473 Init Hosp L3 Procedures Hospitalists Procedures: 70960 Advncd Care Plan 30 Min
[2023-12-26 16:04] LABS: International Normalized Ratio 1.1; Prothrombin Time (Protime)PT. 14.3 SECONDS (11.7-14.9)
[2023-12-26 16:10] LABS: AST(SGOT) 20 U/L (15-37); Alanine Aminotransfer ALT/SGPT 18 U/L (16-61); Albumin, Serum 3.1 g/dL (3.2-5.0); Alkaline Phosphatase 61 U/L (45-117); Globulin 3.6 g/dL (2.2-4.2); Magnesium 1.5 mg/dL (1.6-2.6); Phosphorus 3.8 mg/dL (2.5-4.9); Protein, Total 6.7 g/dL (6.4-8.2)
[2023-12-26 17:13] LABS: Hematocrit 26.4 % (40-54); Hemoglobin 8.3 g/dL (13.0-16.5)
[2023-12-26] MEDS: 0.9% Saline Lock 10 ML Syringe IV (17:16)
[2023-12-26] MEDS: Lactated Ringers 1,000 ML 100 ML IV (17:16)
--- NOTE | 2023-12-26 17:18 | EX.PCM.CON.G ---
HPI Consult Data Date of Consult: 12/26/23 HPI Narrative Reason for Consultation: GI bleed HPI Narrative: BEULAH BRIGHT, is a 83 M came to ED for black dark school for the last few days. Patient could not tell me exact amount and how many frequency of stool per day. He also had cramps over the left lower quadrant today. Patient had similar left lower quadrant cramp about 3 weeks ago when he was admitted. He could not describe completely about the abdominal cramps but it happens sometimes without relation to food. Patient was in the hospital recently for GI bleed and was discharged on 12/10/2023 after colonoscopy and had two 1 to 2 mm polyps in sigmoid colon removed and diverticulosis in the rectosigmoid colon and sigmoid colon. There is no recent EGD. Patient denies dizziness lightheadedness. No fever or chills. Patient has history of COPD and is on 4 L of home oxygen. Denies chronic liver disease. Patient used to drink on weekends mainly beer but quit his smoking and alcohol in 2010. [facility] Medical History Acute on chronic renal insufficiency Acute on chronic anemia Symptomatic anemia Abnormal ECG Elevated troponin Shortness of breath Acute upper gastrointestinal bleeding Anemia Essential hypertension Renal insufficiency Non-ST elevation (NSTEMI) myocardial infarction COPD (chronic obstructive pulmonary disease) Loss of hearing No natural teeth Wears glasses Poor historian Thyroid disease Low iron High cholesterol Syncope History of GI bleed Shortness of breath on exertion History of echocardiogram Cardiology follow-up encounter Symptomatic anemia Diabetes Kidney disease Former smoker On home oxygen therapy TIA (transient ischemic attack) Myocardial infarct Hypertension Diastolic CHF Acute and chronic respiratory failure with hypoxia History of CAD (coronary artery disease) Nonrheumatic aortic (valve) stenosis Mild left ventricular hypertrophy History of left heart catheterization (LHC) (~03/15/22) Atherosclerotic heart disease of [place] coronary artery without angina pectoris Aortic valve stenosis, acquired CAD (coronary artery disease) COPD (chronic obstructive pulmonary disease) Polyarthralgia Diabetes mellitus, type 2 Former tobacco use Obesity Hypothyroidism HLD (hyperlipidemia) HTN (hypertension) Chronic respiratory failure with hypoxia Home Medications ?Medication ?Instructions ?Recorded ?Last Taken ?Type atorvastatin 80 mg tablet 80 mg PO DAILY CHOLESTEROL 05/02/21 12/05/23 History cholecalciferol (vitamin D3) 25 25 mcg PO DAILY vitamin 05/02/21 12/06/23 History mcg (1,000 unit) capsule ipratropium 0.5 mg-albuterol 3 mg 3 ml inhalation 4X/DAY PRN sob 05/02/21 11/18/23 History (2.5 mg base)/3 mL nebulization soln liothyronine 25 mcg tablet 25 mcg PO DAILY THYROID 05/02/21 12/06/23 History tiotropium bromide 18 mcg capsule 18 mcg inhalation DAILY SOB 05/02/21 11/17/23 History with inhalation device (Spiriva with HandiHaler) vitamins A,C,K-kaql-sktibs 4,296 1 cap PO BID vitamin 12/13/21 12/06/23 History mcg-226 mg-90 mg capsule (PreserVision AREDS) glimepiride 2 mg tablet 2 mg PO DAILY DM #3 tabs 03/09/23 12/06/23 Rx empagliflozin 10 mg tablet 10 mg PO DAILY heart failure 30 04/26/23 12/06/23 Rx (Jardiance) days #30 tabs lisinopril 10 mg tablet 10 mg PO DAILY HTN 06/27/23 12/06/23 History metoprolol succinate 25 mg 25 mg PO DAILY heart 06/27/23 12/05/23 History tablet,extended release 24 hr pantoprazole 40 mg tablet,delayed 40 mg PO BID stomach 06/27/23 12/06/23 History release (Protonix) ferrous sulfate 325 mg (65 mg 325 mg PO BID supplement 11/14/23 12/06/23 History iron) tablet (FeroSul) aspirin 81 mg tablet,delayed 81 mg PO DAILY heart health 11/18/23 12/06/23 History release (Adult Aspirin Regimen) torsemide 10 mg tablet 30 mg PO DAILY diuretic 12/26/23 Unknown History Allergy/AdvReac Type Severity Reaction Status Date / Time aliskiren (From Valturna) Allergy Intermediate Other Verified 12/06/23 13:33 valsartan (From Valturna) Allergy Intermediate Other Verified 12/06/23 13:33 codeine AdvReac Upset Verified 12/06/23 13:33 Stomach Family History Mother CVA (cerebral vascular accident) Heart disease Myocardial infarction Hx of CABG Hypertension Father CVA (cerebral vascular accident) Heart disease Surgical History S/P cataract extraction Social History household members: none housing: house Smoking Status: Former smoker how long ago did patient quit smoking: Quit 2011, prior 1 ppd since teen. alcohol intake: former year quit: 2010 substance use type: does not use ROS ROS Narrative Constitutional: Reports fatigue and weakness. No fever. HEENT: Reports systems reviewed and no addt'l complaints, except as documented Respiratory/Chest: Chronic SOB on exertion. COPD. On 4 L of home oxygen. Chronic wheezing. CVS: No chest pain pressure or tight Gastrointestinal: As described in HPI Genitourinary: Denies burning urination or new urinary tract symptoms Musculoskeletal: Denies acute joint pain or limited range of motion. No acute injury. Chronic arthritis Neurologic: Denies seizure-like symptoms. skin: No ulcer. No rash Endocrinology: Reports systems reviewed and no addt'l complaints, except as documented Hematologic/Lymphatic: Reports systems reviewed and no addt'l complaints, except as documented Rest 14 ROS are negative except as mentioned in HPI Physical Exam Narrative General: Alert, Oriented x3, Cooperative HEENT: Atraumatic, PERRLA, EOMI, Normocephalic Oral oral mucosa dry.: No Gingival or Mucosal Lesions/ Ulcerations Neck: Supple, No JVD, Negative Carotid Bruits Chest wall/Lungs: Air entry diffusely diminished in both lungs. Bilateral wheezing and rhonchi. On 4 L of oxygen. Cardiovascular: Regular rate, Regular Rhythm, Normal S1, Normal S2, systolic murmur right second ICS, aortic stenosis. Abdomen: Bowel Sounds Present, Soft, Non Tender, Non-Distended : No dysuria. No renal angle tenderness. No suprapubic tenderness. Extremities: Mild pitting edema, Capillary Refill Less than 3 Seconds Skin: No rashes, No breakdown Musculoskeletal: No Tenderness to Palpation of Joints or Extremities. 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 Neurological: Cranial nerves II-XII grossly intact, DTR 2+/4. No acute focal neurological deficit. Psych/Mental Status: Flat affect Lab / Micro Data 12/27/23 10:46 12/27/23 05:10 Labs: Laboratory Results - last 24 hr 12/26/23 14:20: WBC 5.6, RBC 2.71 L, Hgb 8.3 L, Hct 25.9 L, MCV 95.6 H, MCH 30.6, MCHC 32.0, RDW Std Deviation 47.5 H, RDW Coeff of John 13.8, Plt Count 124 L, MPV 11.8, Immature Gran % (Auto) 0.500, Neut % (Auto) 72.0 H, Lymph % (Auto) 15.4 L, [place] % (Auto) 7.5, Eos % (Auto) 4.1, Baso % (Auto) 0.5, Absolute Neuts (auto) 4.0, Absolute Lymphs (auto) 0.86, Nucleated RBC % 0, Sodium 144, Potassium 4.6, Chloride 108 H, Carbon Dioxide 30.0, Anion Gap 7, BUN 126 H*, Creatinine 2.75 H, Estim Creat Clear Calc 19.84, Est GFR (MDRD) Af Amer 28 L, Est GFR (MDRD) Non-Af 24 L, BUN/Creatinine Ratio 45.8 H, Glucose 169 H, Calcium 9.1, Phosphorus 3.8, Magnesium 1.5 L, Total Bilirubin 0.30, Direct Bilirubin 0.10, AST 20, ALT 18, Alkaline Phosphatase 61, Troponin I High Sens 30, B-Natriuretic Peptide Cancelled, Total Protein 6.7, Albumin 3.1 L, Globulin 3.6, Blood Type A NEGATIVE, Antibody Screen NEGATIVE 12/26/23 14:22: PT 14.3, INR 1.1 12/26/23 17:03: Hgb 8.3 L, Hct 26.4 L 12/26/23 21:39: POC Glucose 193 H 12/26/23 22:53: Hgb 7.6 L, Hct 23.5 L 12/27/23 05:10: WBC 5.9, RBC 2.54 L, Hgb 7.8 L, Hct 24.1 L, MCV 94.9 H, MCH 30.7, MCHC 32.4, RDW Std Deviation 46.5 H, RDW Coeff of John 13.6, Plt Count 119 L, MPV 11.6, Immature Gran % (Auto) 0.300, Neut % (Auto) 67.7, Lymph % (Auto) 19.1, [place] % (Auto) 7.8, Eos % (Auto) 4.6, Baso % (Auto) 0.5, Absolute Neuts (auto) 4.0, Absolute Lymphs (auto) 1.13, Nucleated RBC % 0, Sodium 142, Potassium 4.0, Chloride 107, Carbon Dioxide 30.0, Anion Gap 6, BUN 120 H*, Creatinine 2.25 H, Estim Creat Clear Calc 24.04, Est GFR (MDRD) Af Amer 36 L, Est GFR (MDRD) Non-Af 30 L, BUN/Creatinine Ratio 53.3 H, Glucose 98, Hemoglobin A1c 5.7 H, Calcium 9.0, Total Bilirubin 0.60, AST 15, ALT 19, Alkaline Phosphatase 62, Total Protein 6.4, Albumin 3.0 L, Globulin 3.4, Albumin/Globulin Ratio 0.9 12/27/23 06:22: POC Glucose 143 H 12/27/23 10:46: Hgb 7.8 L, Hct 24.1 L Rhythm Strip Rhythm Strip: Sinus Rhythm Rate: 85 Ectopy: PAC(s) Imaging Radiology Impression Chest X-Ray 12/26/23 14:18 IMPRESSION: No evidence of active intrathoracic disease. Electronically Signed: Jannette Moya MD at 14:30 EDT , Assessment & Plan Assessment/Plan (1) Upper GI bleed: PLAN: Plan This 83-year-old gentleman came to ED for black stool for last few days along with left lower quadrant crampy 1. Acute GI bleed most likely upper GI bleed: Patient is being admitted in PCU. H&H 8.3/25.9%. IV pantoprazole every 12 hourly. Monitor H&H Q6 hourly. Does not have chronic liver disease and last CT abdomen showed normal liver. Therefore I do not think he needs octreotide or IV ceftriaxone. 2. Chronic normocytic anemia probably from GI blood loss and chronic thrombocytopenia: Patient baseline H&H is around 9.5/28%. It dropped to 8.3/26%. Does not meet criteria for acute anemia. Patient also has chronic thrombocytopenia, platelet count baseline 88,000. Most recent 124,000 today. INR normal 1.1. He will undergo an upper endoscopy evaluate his upper GI tract. He was explained alternatives, risk, benefits including not withstanding bleeding, infection, sepsis, perforation, need for emergent surgery and .
[2023-12-26] MEDS: Pantoprazole Sodium 40 MG in 0.9% Normal Saline (100mL MB+) 100 ML 330 MG IV (17:19)
[2023-12-26] MEDS: Insulin Lispro 100 UNIT/ML INSULN.PEN SC (21:46)
[2023-12-26] MEDS: Atorvastatin Calcium 80 MG Tablet PO (21:46)
[2023-12-26] MEDS: Multivitamin (Healthy Eyes) Capsule 1 CAP PO (21:47)
[2023-12-26 23:05] LABS: Hematocrit 23.5 % (40-54); Hemoglobin 7.6 g/dL (13.0-16.5)
[2023-12-27] VITALS (17 sets, daily range): BP systolic 102–144; BP diastolic 45–76; PULSE 68–99; RESP 16–20; TEMP 36.3–36.4; O2SAT 96–100; BMI 29.9
[2023-12-27 01:11] LABS: Bedside Glucose 193 mg/dL (74-106)
[2023-12-27] MEDS: Lactated Ringers 1,000 ML 100 ML IV (04:08)
[2023-12-27 06:17] LABS: Absolute Lymphocyte Count 1.13 X10^3/uL (0.83-4.51); Basophil# 0.03 X10^3/uL; Basophil% 0.5 % (0-1); Eosinophil# 0.27 X10^3/uL; Eosinophils% 4.6 % (0-5); Hematocrit 24.1 % (40-54); Hemoglobin 7.8 g/dL (13.0-16.5); Lymphocyte # 1.13 X10^3/ul (0.83-4.51); Lymphocyte % 19.1 % (19-41); Mean Corp Hgb Conc 32.4 g/dL (32-36); Mean Corpuscular Hgb 30.7 pg (27.0-32.0); Mean Corpuscular Volume 94.9 fL (80-94); Mean Platelet Vol. 11.6 fl (6.2-12.0); Monocyte# 0.46 X10^3/uL; Monocyte% 7.8 % (0-10); NRBC Flagged by Analyzer 0 % (0-5); Neutrophil # 4.02 X10^3/uL (2.7-7.7); Neutrophil % 67.7 % (47-70); Platelet Count 119 K/mm3 (150-450); RBC Distribution Width CV 13.6 % (11.6-14.6); RBC Distribution Width SD 46.5 fl (35.1-43.9); Red Blood Count 2.54 M/mm3 (4.6-6.2); White Blood Count 5.9 K/mm3 (4.4-11.0)
[2023-12-27] MEDS: Liothyronine 5 MCG Tablet 25 MCG PO (06:23)
[2023-12-27 06:44] LABS: Bedside Glucose 143 mg/dL (74-106)
[2023-12-27 06:53] LABS: ALB/GLOB Ratio 0.9 RATIO (0.9-2.4); AST(SGOT) 15 U/L (15-37); Alanine Aminotransfer ALT/SGPT 19 U/L (16-61); Alkaline Phosphatase 62 U/L (45-117); Anion Gap 6 (5-15); BUN 120 mg/dL (7-18); BUN/Creat Ratio 53.3 RATIO (10-20); Chloride 107 mmol/L (98-107); Creatinine, Serum 2.25 mg/dL (0.70-1.30); EST Glomerular Filtration Rate 30 mL/min (>60); Est Glom Filt Rate - Afr Amer 36 mL/min (>60); Estimated Creatinine Clearance 24.04 ml/min; Globulin 3.4 g/dL (2.2-4.2); Glucose 98 mg/dL (74-106); Protein, Total 6.4 g/dL (6.4-8.2); Sodium Level 142 mmol/L (136-145)
[2023-12-27] MEDS: Ipratropium/Albuterol Sulfate 3 ML AMPUL.NEB INHALATION ×2 (07:04→15:04)
[2023-12-27 07:58] LABS: Hemoglobin A1c 5.7 % (3.8-5.6)
[2023-12-27] MEDS: Pantoprazole Sodium 40 MG in 0.9% Normal Saline (100mL MB+) 100 ML 330 MG IV ×2 (09:00→22:04)
[2023-12-27] MEDS: Metoprolol(XL)Succ 25 MG Tablet PO (09:01)
[2023-12-27] MEDS: Magnesium Sulfate 4gm/100mL 4 GM/100 ML IV.SOLN. IV (10:08)
[2023-12-27 11:25] LABS: Hematocrit 24.1 % (40-54); Hemoglobin 7.8 g/dL (13.0-16.5)
--- NOTE | 2023-12-27 11:26 | PRE.ANES_ITS ---
ASA Classification* ASA Classification ASA Classification: 4 and E Assessment & Plan Anesthesia* Anesthesia Assessment Anesthesia Assessment: Discussed sedation and/or anesthesia options, risks, benefits, and alternatives with patient/parents/legal guardian/POA. Questions invited. The patient/parents/legal guardian/POA seems to understand and agrees to proceed with anesthesia plan. Reviewed the physical assessment, medical history, allergy history and patient home medications list prior to surgery/procedure/anesthetic and documented any changes. Performed airway and anesthesia risk assessments. Anesthesia Type Anesthesia Type: MAC (see written pre anesthesia record for full assessment) Anesthesia Focused Assessment* Temperature: 97.4 F Pulse Rate: 99 Blood Pressure: 109/56 Respiratory Rate: 20 Pulse Ox: 98 Airway Assessment Mouth opens: >3 cm Mallampati Score: III Focused Labs Anesthesia Preop lab: CBC WBC 5.9 K/mm3 (4.4-11.0) 12/27/23 05:10 RBC 2.54 M/mm3 (4.6-6.2) L 12/27/23 05:10 Hgb 7.8 g/dL (13.0-16.5) L 12/27/23 10:46 Hct 24.1 % (40-54) L 12/27/23 10:46 Plt Count 119 K/mm3 (150-450) L 12/27/23 05:10 CHEMISTRY Potassium 4.0 mmol/L (3.5-5.1) 12/27/23 05:10 Sodium 142 mmol/L (136-145) 12/27/23 05:10 Magnesium 1.5 mg/dL (1.6-2.6) L 12/26/23 14:20 Phosphorus 3.8 mg/dL (2.5-4.9) 12/26/23 14:20 BUN 120 mg/dL (7-18) H* 12/27/23 05:10 Creatinine 2.25 mg/dL (0.70-1.30) H 12/27/23 05:10 Glucose 98 mg/dL (74-106) 12/27/23 05:10 POC Glucose 143 mg/dL (74-106) H 12/27/23 06:22 TSH 2.800 uIU/mL (0.358-3.740) 11/15/23 04:17 COAG PT 14.3 SECONDS (11.7-14.9) 12/26/23 14:22 Pre-Assessment Diagnosis/Proposed Procedure Planned Operative Procedure(s): egd Anesthesia History Anesthesia History - 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 When Was Last Pacemaker Check QUESTION #4 FULL TEXT: You/Your Family Experience fever (hyperthermia) with Anesthesia Last Oral Intake Last Oral intake: Last Oral Intake NPO since 00:01 12/27/23 10:11 Meds taken in AM with sips of Yes 12/27/23 10:11 water? Meds patient instructed to metoprolol 12/27/23 10:11 take am of surgery PONV PONV - vice president of contracts: PONV - vice president of contracts Female HX of Motion Sickness HX of N/V After Surgery Non-Smoker Duration of Surgery greater than 60 minutes Number of Risk Factors PONV Score Height & Weight Height & Weight: Anesthesia: Height & Weight Height 5 ft 4.96 in 12/27/23 10:11 Weight: 81.6 kg 12/27/23 10:11 Body Mass Index (BMI) 29.9 12/27/23 10:11 Respiratory Assessment Respiratory Assessment - vice president of contracts: Respiratory Tract Infection Hx - vice president of contracts Hx Respiratory Tract Infection No 12/27/23 10:11 STOP Sleep Apnea STOP Sleep Apnea - vice president of contracts: STOP Sleep Apnea - vice president of contracts Hx Hypertension Yes 12/26/23 16:49 Hx Sleep Apnea No 12/26/23 16:49 CPAP BIPAP Do you snore loudly (louder No 12/26/23 16:49 than talking or can be heard Do you often feel tired/ No 12/26/23 16:49 fatigued/ sleepy during daytime? Has anyone observed you stop No 12/26/23 16:49 breathing during sleep? STOP Results Negative 12/26/23 16:49 QUESTION #5 FULL TEXT : Do you snore loudly (louder than talking or can be heard through closed doors)? 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 Specify any problems Hx of Preganancy in last 3 N/A 12/26/23 16:49 Months Nurse Filling Out Transfusion JNORRIS 12/26/23 16:49 & Questions: Date: 12/26/23 12/26/23 16:49 Time: 16:57 12/26/23 16:49 Patient unable to answer at this time (ie. confused, unrespo /Reproduction History /Reproductive History - vice president of contracts: /Reproductive Hx- vice president of contracts Hx Now No 12/27/23 10:11 Gestational Age (in weeks): EDC: Hx Hx Para Hx Section SAB No 12/10/23 04:34 Active Medications Active Medications: Current Medications Generic Name Dose Route Start Last Admin Trade Name Freq PRN Reason Stop Dose Admin Acetaminophen 650 mg 12/26/23 16:48 Acetaminophen 325 Mg Tablet PO Q6H PRN PRN Pain 1-10 Or Fever >100.7 Albuterol/Ipratropium 3 ml 12/26/23 18:00 12/27/23 07:04 Ipratropium/Albuterol Sulfate 3 Ml Ampul.Neb INHALATION 12/27/23 17:59 3 ml 4X/DAY.RT KALEB Administration Albuterol/Ipratropium 3 ml 12/27/23 18:00 Ipratropium/Albuterol Sulfate 3 Ml Ampul.Neb INHALATION 4X/DAY PRN PRN SHORTNESS OF BREATH Atorvastatin Calcium 80 mg 12/26/23 22:00 12/26/23 21:46 Atorvastatin Calcium 80 Mg Tablet PO 80 mg QHS KALEB Administration Cholecalciferol 25 mcg 12/27/23 08:00 12/27/23 08:21 Cholecalciferol (Vit D3) 25 Mcg Tablet (1,000 Units) PO Not Given DAILYCM KALEB Ferrous Sulfate 325 mg 12/27/23 12:00 Ferrous Sulfate 325 Mg Tablet PO DAILY@1200 KALEB Glucagon 1 mg 12/26/23 18:03 Glucagon 1 Mg/Ml Syringe IM X1 PRN Hypoglycemia Protocol Pantoprazole Sodium 40 mg/ 110 mls @ 330 mls/hr 12/26/23 16:48 12/27/23 10:05 Sodium Chloride IV Infused Q12 KALEB Infusion Lactated Ringer's 1,000 mls @ 100 mls/hr 12/26/23 16:48 12/27/23 04:08 IV 12/27/23 12:47 100 mls/hr .Q10H KALEB Administration Protocol Sodium Chloride 100 mls @ 15 mls/hr 12/26/23 16:55 IV .Q6H40M PRN SALINE FLUSH Dextrose 250 mls @ 0 mls/hr 12/26/23 18:03 Dextrose 10%-Water IV .Q0M PRN HYPOGLYCEMIA Protocol As Directed Magnesium Sulfate 4 gm in 100 mls @ 25 mls/hr 12/27/23 10:08 IV 12/27/23 14:07 X1 ONE Insulin Human Lispro 0 unit 12/26/23 22:00 12/27/23 06:26 Insulin Lispro 100 Unit/Ml Insuln.Pen SC Not Given ACHS KALEB Protocol Ipratropium [place] 0.5 mg 12/27/23 18:00 Ipratropium 0.5 Mg/2.5 Ml Solution INHALATION Q6HWA.RT KALEB Liothyronine Sodium 25 mcg 12/27/23 06:00 12/27/23 06:23 Liothyronine 5 Mcg Tablet PO 25 mcg DAILY@0600 KALEB Administration Metoprolol Succinate 25 mg 12/27/23 10:00 12/27/23 09:01 Metoprolol(Xl)Succ 25 Mg Tablet PO 25 mg DAILY KALEB Administration Protocol Multivitamins/Minerals 1 cap 12/26/23 22:00 12/27/23 08:20 Multivitamin (Healthy Eyes) Capsule PO Not Given BIDCM COUNT INCLUDES THE [facility] Ondansetron HCl 4 mg 12/26/23 16:48 Ondansetron 4 Mg/2 Ml Vial IV Q8H PRN PRN NAUSEA/VOMITING Senna/Docusate Sodium 2 tablet 12/26/23 16:48 Senna/Docusate Sodium 1 Tablet PO BID PRN PRN Constipation Sodium Chloride 10 - 40 ml 12/26/23 16:55 12/26/23 17:16 0.9% Saline Lock 10 Ml Syringe IV 10 ml UD PRN Administration SALINE FLUSH PFS Medical History Acute on chronic renal insufficiency Acute on chronic anemia Symptomatic anemia Abnormal ECG Elevated troponin Shortness of breath Acute upper gastrointestinal bleeding Anemia Essential hypertension Renal insufficiency Non-ST elevation (NSTEMI) myocardial infarction COPD (chronic obstructive pulmonary disease) Loss of hearing No natural teeth Wears glasses Poor historian Thyroid disease Low iron High cholesterol Syncope History of GI bleed Shortness of breath on exertion History of echocardiogram Cardiology follow-up encounter Symptomatic anemia Diabetes Kidney disease Former smoker On home oxygen therapy TIA (transient ischemic attack) Myocardial infarct Hypertension Diastolic CHF Acute and chronic respiratory failure with hypoxia History of CAD (coronary artery disease) Nonrheumatic aortic (valve) stenosis Mild left ventricular hypertrophy History of left heart catheterization (LHC) (~03/15/22) Atherosclerotic heart disease of [place] coronary artery without angina pectoris Aortic valve stenosis, acquired CAD (coronary artery disease) COPD (chronic obstructive pulmonary disease) Polyarthralgia Diabetes mellitus, type 2 Former tobacco use Obesity Hypothyroidism HLD (hyperlipidemia) HTN (hypertension) Chronic respiratory failure with hypoxia Home Medications ?Medication ?Instructions ?Recorded ?Last Taken ?Type atorvastatin 80 mg tablet 80 mg PO DAILY CHOLESTEROL 05/02/21 12/05/23 History cholecalciferol (vitamin D3) 25 25 mcg PO DAILY vitamin 05/02/21 12/06/23 History mcg (1,000 unit) capsule ipratropium 0.5 mg-albuterol 3 mg 3 ml inhalation 4X/DAY PRN sob 05/02/21 11/18/23 History (2.5 mg base)/3 mL nebulization soln liothyronine 25 mcg tablet 25 mcg PO DAILY THYROID 05/02/21 12/06/23 History tiotropium bromide 18 mcg capsule 18 mcg inhalation DAILY SOB 05/02/21 11/17/23 History with inhalation device (Spiriva with HandiHaler) vitamins A,C,W-uoip-hucaqb 4,296 1 cap PO BID vitamin 12/13/21 12/06/23 History mcg-226 mg-90 mg capsule (PreserVision AREDS) glimepiride 2 mg tablet 2 mg PO DAILY DM #3 tabs 03/09/23 12/06/23 Rx empagliflozin 10 mg tablet 10 mg PO DAILY heart failure 30 04/26/23 12/06/23 Rx (Jardiance) days #30 tabs lisinopril 10 mg tablet 10 mg PO DAILY HTN 06/27/23 12/06/23 History metoprolol succinate 25 mg 25 mg PO DAILY heart 06/27/23 12/05/23 History tablet,extended release 24 hr pantoprazole 40 mg tablet,delayed 40 mg PO BID stomach 06/27/23 12/06/23 History release (Protonix) ferrous sulfate 325 mg (65 mg 325 mg PO BID supplement 11/14/23 12/06/23 History iron) tablet (FeroSul) aspirin 81 mg tablet,delayed 81 mg PO DAILY heart health 11/18/23 12/06/23 History release (Adult Aspirin Regimen) torsemide 10 mg tablet 30 mg PO DAILY diuretic 12/26/23 Unknown History Allergy/AdvReac Type Severity Reaction Status Date / Time aliskiren (From Valt[place]a) Allergy Intermediate Other Verified 12/06/23 13:33 valsartan (From [place]a) Allergy Intermediate Other Verified 12/06/23 13:33 codeine AdvReac Upset Verified 12/06/23 13:33 Stomach Family History Mother CVA (cerebral vascular accident) Heart disease Myocardial infarction Hx of CABG Hypertension Father CVA (cerebral vascular accident) Heart disease Surgical History S/P cataract extraction Social History household members: none housing: house Smoking Status: Former smoker how long ago did patient quit smoking: Quit 2011, prior 1 ppd since teen. alcohol intake: former year quit: 2011 substance use type: does not use Review of Systems (Anesthesia) ROS Narrative System reviewed and no additional complaints, except as documented.
--- NOTE | 2023-12-27 12:15 | EGD_PTH ---
PATIENT: BEULAH BRIGHT LOC: [facility] U#:[id number] AGE/SX: 83/M ROOM: [facility] RE12/26/[address]: Dr. Anthony Sosa DO : 1940 BED: 1 DIS: 12/28/2023 SPEC #: [id number] RECD: 12/27/23 13:23 STATUS: CHRISTIANO DICKEY #: [id number] BUZZ: 12/27/23 12:[address]: Fredy Joy DEPT: SURGICAL PATHOLOGY RECD BY: Eli Ellis ENTERED: 12/27/23 13:48 SP TYPE: EGD BIOPSY OTHR DR: DO Dr. Fred Emanuel MD Dr. Paul Nielsen, MD Tissues: Gastric mucous membrane Procedures: Surgery Specimen Level IV HEADER OPERATION: EGD with biopsy PRE-OP DIAGNOSIS: Upper GI bleed TISSUE SUBMITTED: Gastric antrum biopsy MICROSCOPIC DIAGNOSIS Gastric antrum, biopsy: Mild gastritis. See microscopic description and comment. 12/28/2023 COMMENT The results of immunohistochemistry for Helicobacter pylori will be reported separately ([id number]). MICROSCOPIC DESCRIPTION Slides are reviewed. The specimen shows fragments of gastric mucosa with chronic inflammatory cell infiltrates in the lamina propria consisting of lymphocytes and plasma cells, consistent with mild chronic gastritis. GROSS DESCRIPTION Received in fixative is one container labeled with the patient's name and designated Gastric antrum biopsy. The specimen consists of two irregular fragments of light atkins soft tissue that in aggregate measure 1.0 x 0.3 x 0.1 cm. The specimen is totally submitted in one cassette. 12/27/2023 TC:3 CPT:52622
--- NOTE | 2023-12-27 12:15 | IMM_PTH ---
PATIENT: BEULAH BRIGHT LOC: [facility] U#:[id number] AGE/SX: 83/M ROOM: [facility] RE12/26/[address]: Dr. Anthony Sosa DO : 1940 BED: 1 DIS: 12/28/2023 SPEC #: [id number] RECD: 12/27/23 13:38 STATUS: SOUT REQ #: [id number] BUZZ: 12/27/23 12:[address]: Fredy Joy DEPT: IMMUNOHISTOCHEMISTRY RECD BY: Isaac Verduzco ENTERED: 12/27/23 13:38 SP TYPE: IMMUNO OTHR DR: DO Dr. Fred Emanuel MD Dr. Paul Nielsen, MD Tissues: Gastric mucous membrane Procedures: H Pylori (initial) Comments: @ Ordering doctor for SUIV edited from to @ by DEYVI at 12/27/23 1332 @ Submitting doctor edited from to @ by DEYVI at 12/27/23 1333 PHYSICIAN & [place] [id number] SPECIMEN INFORMATION: Tissue Source: Gastric antrum biopsy Clinical Info: Upper GI bleed Specimen Number: [id number] CPT code: 30746 METHODOLOGY: Deparaffinized sections of prefer/formalin-fixed tissue or PAP/DQ stained slides are incubated with monoclonal/polyclonal antibodies/oligonucleotide probes. Localization is made via biotin free immunoperoxidase method. Appropriate controls are performed and reacted as expected. Results on target cell population are indicated in the following table: RESULTS: ANTIBODY / CLONE RESULT H Pylori (polyclonal) negative These tests were developed and their performance characteristics determined by [facility]. They may not have been cleared or approved by the U.S. Food and Drug Administration. The FDA has determined that such clearance or approval is not necessary. The above immunohistochemical/dualISH markers are ordered and reviewed by the Pathologist. INTERPRETATION: Gastric antrum, biopsy: Negative for Helicobacter pylori organisms. 12/28/2023
--- NOTE | 2023-12-27 12:47 | PCM.POST.ANE ---
Anesthesia: Postop Eval I Current Vital Signs Temperature: 97.4 F Pulse Rate: 84 Blood Pressure: 143/54 Respiratory Rate: 18 Pulse Ox: 98 Oxygen Delivery Method: Nasal Cannula Oxygen Flow Rate (L/min): 3 Assessment Airway patent: Yes Spontaneous unlabored respirations: Yes Mental status: Asleep nausea: No Vomiting: No Anesthesia Complication: No Fluid Hydration Crystalloid volume administer (ml): 20 Total IV fluid infused: 20 Progress Note Anesthesia document: Postop Eval 1 completed: Yes
--- NOTE | 2023-12-27 12:48 | PCM.POSTANE2 ---
Anesthesia Postop Eval I Sum Postop Eval Completion status Anesthesia document: Postop Eval 1 completed: Yes Anesthesia Postop Eval I Summary Anesthesia Postop Eval I Summary: Anesthesia Postop Eval I: Assessment Summary Airway patent Yes 12/27/23 12:48 [email or web address] Spontaneous unlabored Yes 12/27/23 12:48 [email or web address] respirations Mental status Asleep 12/27/23 12:48 [email or web address] nausea No 12/27/23 12:48 [email or web address] Vomiting No 12/27/23 12:48 [email or web address] Anesthesia Postop Eval I: Fluid Summary Crystalloid volume administer 20 12/27/23 12:48 [email or web address] (ml) Colloids volume administered ( ml) Blood Product volume administered (ml) Total IV fluid infused 20 12/27/23 12:48 [email or web address] Anesthesia Postop Eval I: Summary Notes Anesthesia Complication No 12/27/23 12:48 [email or web address] Anesthesia Complication Comment: Post-operative progress note Anesthesia: Postop Eval II Evaluation Mental status: Awake Pain Level: 0 nausea: No Vomiting: No
[2023-12-27 14:05] LABS: Bedside Glucose 155 mg/dL (74-106)
--- NOTE | 2023-12-27 14:44 | CHAPLAIN ---
Type of Pastoral Visit _x__ Initial Visit ___ Follow-up Visit ___ On-call Visit ___ General Patient Visit ___ Spiritual Assessment ___ Family Conference ___ Bereavement ___ Rapid Response ___ Code Blue ___ Other (describe below) Pastoral Care Referral From _x__ Patient ___ Family ___ Nurse ___ Physician ___ Financial Management Consultant ___ Neon Sign Installer ___ Other (describe below) Sacrament/Intervention _x__ Active listening ___ Anointing ___ Alevism ___ Bereavement ___ Communion _x__ Leigh exploration ___ ___ Life review _x__ Prayer ___ Reconciliation ___ Sacrament of Sick _x__ Supportive presence ___ Wedding ___ Other (describe below) Pastoral Comments patient was just seen earlier this month; 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
--- NOTE | 2023-12-27 15:15 | CASEMGMT ---
ALMA RINALDI chart review: Patient was admitted 12/05-12/10/23 for acute on chronic anemia, requiring 3 units of PRBC, colonoscopy completed that showed 2 polys that were removed. See assessment from 11/15/23. Patient was discharged home with resumption of CCN and palliative referral. Patient returned to [facility] ED on 12/26/23 for shortness of breath, patient was maintaining on home oxygen. Black stool noted on exam and patient had positive nena occult. Patient was taken to have EGD that showed an oozing gastric ulcer that was treat. ALMA RINALDI in to patient's room to discuss needs at discharge. ALMA RINALDI reviewed CCN notes, patient has lost 10 pounds in the last month and has been weigh self daily. Patient has been taken medications as prescribed, attending follow-up appts, and wearing home oxygen consistently. Patient denied needs at discharge and wishes to resume CCN. Patient states palliative care has talked to patient but has not been out to see him. Patient had no further questions or concerns. CM will continue to follow this patient and plan for safe discharge.
[2023-12-27] MEDS: Multivitamin (Healthy Eyes) Capsule 1 CAP PO (16:17)
[2023-12-27] MEDS: Insulin Lispro 100 UNIT/ML INSULN.PEN SC ×2 (16:17→22:03)
--- NOTE | 2023-12-27 16:38 | PCM.PN.HOSP ---
Reason for Visit Reason for Visit: Diagnoses Gastrointestinal hemorrhage, unspecified (12/26/23) Subjective Subjective Patient was seen and examined today, he underwent an EGD today, the results are not in the medical record as of yet. Patient's hemoglobin early this morning was 7.8, repeat hemoglobin at 10:46 AM was the same. Objective Data Objective Data Vital Signs: Vital Signs Temp Pulse Resp BP Pulse Ox O2 Del Method O2 Flow Rate 97.4 F L 99 16 128/45 H 98 Nasal Cannula 2 12/27/23 16:09 12/27/23 16:09 12/27/23 16:09 12/27/23 16:09 12/27/23 16:12 12/27/23 16:12 12/27/23 16:12 Oxygen Flow Rate (L/min) 2 Oxygen Delivery Method Nasal Cannula Weight: 81.6 kg Body Mass Index (BMI) 29.9 Intake & Output: Intake and Output for Last 24 Hours 12/25/23 12/26/23 12/27/23 23:59 23:59 23:59 Intake Total 550 / 550 2146.67 / 2146.67 Output Total 100 / 100 Balance 550 / 550 2046.67 / 2046.67 Lab / Micro Data 12/27/23 10:46 12/27/23 05:10 Labs: Laboratory Results - last 24 hr 12/26/23 14:20: B-Natriuretic Peptide Cancelled 12/26/23 17:03: Hgb 8.3 L, Hct 26.4 L 12/26/23 21:39: POC Glucose 193 H 12/26/23 22:53: Hgb 7.6 L, Hct 23.5 L 12/27/23 05:10: WBC 5.9, RBC 2.54 L, Hgb 7.8 L, Hct 24.1 L, MCV 94.9 H, MCH 30.7, MCHC 32.4, RDW Std Deviation 46.5 H, RDW Coeff of John 13.6, Plt Count 119 L, MPV 11.6, Immature Gran % (Auto) 0.300, Neut % (Auto) 67.7, Lymph % (Auto) 19.1, [place] % (Auto) 7.8, Eos % (Auto) 4.6, Baso % (Auto) 0.5, Absolute Neuts (auto) 4.0, Absolute Lymphs (auto) 1.13, Nucleated RBC % 0, Sodium 142, Potassium 4.0, Chloride 107, Carbon Dioxide 30.0, Anion Gap 6, BUN 120 H*, Creatinine 2.25 H, Estim Creat Clear Calc 24.04, Est GFR (MDRD) Af Amer 36 L, Est GFR (MDRD) Non-Af 30 L, BUN/Creatinine Ratio 53.3 H, Glucose 98, Hemoglobin A1c 5.7 H, Calcium 9.0, Total Bilirubin 0.60, AST 15, ALT 19, Alkaline Phosphatase 62, Total Protein 6.4, Albumin 3.0 L, Globulin 3.4, Albumin/Globulin Ratio 0.9 12/27/23 06:22: POC Glucose 143 H 12/27/23 10:46: Hgb 7.8 L, Hct 24.1 L 12/27/23 13:43: POC Glucose 155 H Rhythm Strip Rhythm Strip: Sinus Rhythm Rate: 85 Ectopy: PAC(s) Physical Exam Const alert, oriented x3 and no apparent distress General Appearance: cooperative, well kempt and well developed Orientation / Consciousness: awake, oriented to person, oriented to place and oriented to time HEENT normocephalic, head/scalp atraumatic and moist oral mucous membranes Eyes PERRL, EOMs intact bilaterally and conjunctivae normal Neck supple, no JVD, thyroid normal and no carotid bruits General: trachea midline Resp normal respiratory effort, no retractions, no use of accessory muscles and clear to auscultation bilaterally Auscultation: Negative for rales, rhonchi or wheezes Cardio regular rate, regular rhythm, S1 normal heart sound, S2 normal heart sound, no murmurs, no rub and no gallops GI normal to inspection, nondistended, normoactive bowel sounds, soft to palpation, non-tender and non-distended Extremity no clubbing, cyanosis or edema Skin no rashes or lesions noted General Skin Exam: no breakdown Neuro oriented x3, CN's II-XII intact bilaterally, moves all extremities, no focal motor deficits and no sensory deficits noted Sensorium / Orientation: awake and alert Speech: speech normal Psych affect normal Assessment & Plan Assessment/Plan (1) Acute on chronic anemia: PLAN: Plan 1. Acute on chronic anemia-etiology unclear, according to nursing, EGD did not show evidence of bleeding in the upper gastrointestinal tract today. I will have to discuss the case with gastroenterology, patient has had an entire workup including capsule endoscopy and a colonoscopy in the past. I will repeat the patient's H&H at 8:00 tonight. 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
[2023-12-27 19:17] LABS: Bedside Glucose 168 mg/dL (74-106)
[2023-12-27 20:08] LABS: Hematocrit 24.3 % (40-54); Hemoglobin 7.9 g/dL (13.0-16.5)
[2023-12-27] MEDS: Ipratropium 0.5 MG/2.5 ML SOLUTION INHALATION (20:20)
[2023-12-27 20:21] LABS: Ferritin 32 ng/mL (26-388); Iron 43 ug/dL (65-175); Iron Binding Capacity,Total 264 ug/dL (250-450); PERCENT IRON SATURATION 16.3 % (15.0-55.0)
[2023-12-27] MEDS: 0.9% Saline Lock 10 ML Syringe IV (22:03)
[2023-12-27] MEDS: Atorvastatin Calcium 80 MG Tablet PO (22:04)
[2023-12-27 22:10] LABS: Bedside Glucose 159 mg/dL (74-106)
[2023-12-28] VITALS (16 sets, daily range): BP systolic 115–164; BP diastolic 43–118; PULSE 72–93; RESP 16–20; TEMP 36.2–36.9; O2SAT 95–100; BMI 30.7
[2023-12-28 06:05] LABS: Absolute Lymphocyte Count 0.92 X10^3/uL (0.83-4.51); Absolute Neutrophil Count 3.8 X10^3/uL (2.0-7.7); Basophil# 0.04 X10^3/uL; Basophil% 0.7 % (0-1); Eosinophil# 0.21 X10^3/uL; Eosinophils% 3.8 % (0-5); Hematocrit 23.3 % (40-54); Hemoglobin 7.7 g/dL (13.0-16.5); Lymphocyte # 0.92 X10^3/ul (0.83-4.51); Lymphocyte % 16.5 % (19-41); Mean Platelet Vol. 11.3 fl (6.2-12.0); Monocyte# 0.54 X10^3/uL; Monocyte% 9.7 % (0-10); NRBC Flagged by Analyzer 0 % (0-5); Neutrophil # 3.84 X10^3/uL (2.7-7.7); Neutrophil % 68.9 % (47-70); Platelet Count 108 K/mm3 (150-450); RBC Distribution Width CV 13.6 % (11.6-14.6); RBC Distribution Width SD 46.5 fl (35.1-43.9); Red Blood Count 2.48 M/mm3 (4.6-6.2); White Blood Count 5.6 K/mm3 (4.4-11.0)
[2023-12-28] MEDS: Liothyronine 5 MCG Tablet 25 MCG PO (06:15)
[2023-12-28 06:42] LABS: Bedside Glucose 116 mg/dL (74-106)
[2023-12-28] MEDS: Ipratropium 0.5 MG/2.5 ML SOLUTION INHALATION ×2 (07:14→12:33)
[2023-12-28] MEDS: Multivitamin (Healthy Eyes) Capsule 1 CAP PO (07:57)
[2023-12-28] MEDS: Cholecalciferol (VIT D3) 25 MCG TABLET (1,000 UNITS) PO (07:57)
[2023-12-28] MEDS: Metoprolol(XL)Succ 25 MG Tablet PO (09:50)
[2023-12-28] MEDS: Pantoprazole Sodium 40 MG in 0.9% Normal Saline (100mL MB+) 100 ML 330 MG IV (10:48)
[2023-12-28] MEDS: Insulin Lispro 100 UNIT/ML INSULN.PEN SC (11:21)
[2023-12-28 11:43] LABS: Bedside Glucose 192 mg/dL (74-106)
[2023-12-28] MEDS: Ferrous Sulfate 325 MG Tablet PO (12:08)
--- NOTE | 2023-12-28 12:54 | PCM.PN.HOSP ---
Reason for Visit Reason for Visit: Diagnoses Anemia, unspecified (12/26/23) Gastrointestinal hemorrhage, unspecified (12/26/23) Subjective Subjective Patient was seen and examined today, his hemoglobin appears to be stable although it remains in the 7 range, I have decided to give him 1 unit of packed red blood cells, patient's EGD yesterday showed a small bleeding ulcer in the stomach, I talked with gastroenterology today and they recommended Carafate which I will add to his home-going medications. Objective Data Objective Data Vital Signs: Vital Signs Temp Pulse Resp BP Pulse Ox O2 Del Method O2 Flow Rate 98.0 F 81 16 115/104 H 96 Nasal Cannula 2 12/28/23 12:29 12/28/23 12:29 12/28/23 12:29 12/28/23 12:29 12/28/23 12:29 12/28/23 12:29 12/28/23 12:29 Oxygen Flow Rate (L/min) 2 Oxygen Delivery Method Nasal Cannula Weight: 83.7 kg Body Mass Index (BMI) 30.7 Intake & Output: Intake and Output for Last 24 Hours 12/26/23 12/27/23 12/28/23 23:59 23:59 23:59 Intake Total 550 / 550 2420.00 / 2420.00 510 / 510 Output Total 525 / 525 1000 / 1000 Balance 550 / 550 1895.00 / 1895.00 -490 / -490 Lab / Micro Data 12/28/23 05:39 12/27/23 05:10 Labs: Laboratory Results - last 24 hr 12/26/23 14:20: Crossmatch See Detail 12/27/23 05:10: Hgb 7.9 L, Hct 24.3 L, Iron 43 L, TIBC 264, Iron Saturation 16.3, Ferritin 32 12/27/23 13:43: POC Glucose 155 H 12/27/23 16:15: POC Glucose 168 H 12/27/23 21:49: POC Glucose 159 H 12/28/23 05:39: WBC 5.6, RBC 2.48 L, Hgb 7.7 L, Hct 23.3 L, MCV 94.0, MCH 31.0, MCHC 33.0, RDW Std Deviation 46.5 H, RDW Coeff of John 13.6, Plt Count 108 L, MPV 11.3, Immature Gran % (Auto) 0.400, Neut % (Auto) 68.9, Lymph % (Auto) 16.5 L, [place] % (Auto) 9.7, Eos % (Auto) 3.8, Baso % (Auto) 0.7, Absolute Neuts (auto) 3.8, Absolute Lymphs (auto) 0.92, Nucleated RBC % 0 12/28/23 06:14: POC Glucose 116 H 12/28/23 11:19: POC Glucose 192 H Rhythm Strip Rhythm Strip: Sinus Rhythm Rate: 85 Ectopy: PAC(s) Physical Exam Const alert, oriented x3 and no apparent distress General Appearance: cooperative, well kempt and well developed Orientation / Consciousness: awake, oriented to person, oriented to place and oriented to time HEENT normocephalic, head/scalp atraumatic and moist oral mucous membranes Eyes PERRL, EOMs intact bilaterally and conjunctivae normal Neck supple and no JVD General: trachea midline Resp normal respiratory effort, no retractions, no use of accessory muscles and clear to auscultation bilaterally Auscultation: Negative for rales, rhonchi or wheezes Cardio regular rate, regular rhythm, S1 normal heart sound, S2 normal heart sound, no murmurs, no rub and no gallops GI normal to inspection, nondistended, normoactive bowel sounds, soft to palpation, non-tender and non-distended Extremity no clubbing, cyanosis or edema Skin no rashes or lesions noted General Skin Exam: no breakdown Neuro oriented x3, CN's II-XII intact bilaterally, no focal motor deficits and no sensory deficits noted Sensorium / Orientation: awake and alert Speech: speech normal Psych affect normal Assessment & Plan Assessment/Plan (1) Upper GI bleed: (2) Acute on chronic anemia: PLAN: Plan 1. Acute on chronic anemia-secondary to gastric ulcer, again I have decided to give the patient 1 unit of packed red blood cells today, he will be reevaluated for discharge later on today. 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
--- NOTE | 2023-12-28 14:19 | PCM.DC ---
Discharge Instructions Diet Discharge Diet: 1800 Calorie Control Diet Activity Discharge Activity: Return to Normal Activity Weight Bearing Status: Full weight bearing Follow Up Care Test Results: Test results from this visit will be discussed in further detail at your follow-up appointment, if applicable. Discharge Plan Admission Admit Date/Time: 12/26/23 15:37 Primary Reason for Your Visit: upper GI bleed Attending Provider: Anthony Sosa Primary Care Provider: Emeka Hernandez Consulting Providers: Fred Ramos Discharge Orders/Prescriptions Prescriptions: New sucralfate [Carafate] 1 gram tablet 1 g PO TID Qty: 90 0RF Continued atorvastatin 80 mg tablet 80 mg PO DAILY ipratropium-albuterol 0.5 mg-3 mg(2.5 mg base)/3 mL solution for nebulization 3 ml inhalation 4X/DAY PRN (Reason: sob) Patient Comments: inhale contents of 1 vial ( 3 milliliters ) in nebulizer by mouth... (REFER TO PRESCRIPTION NOTES). liothyronine 25 mcg tablet 25 mcg PO DAILY Patient Comments: TAKE 1 TABLET BY MOUTH ONCE DAILY FOR 90 DAYS tiotropium bromide [Spiriva with HandiHaler] 18 mcg capsule, w/inhalation device 18 mcg INHALATION DAILY Patient Comments: INHALE THE CONTENTS OF 1 CAPSULE TWICE EACH TIME VIA HANDIHALER ONCE DAILY cholecalciferol (vitamin D3) 25 mcg (1,000 unit) Capsule 25 mcg PO DAILY PreserVision AREDS [id number] Capsule 1 cap PO BID Jardiance 10 mg Tablet 10 mg PO DAILY 30 Days Qty: 30 0RF glimepiride 2 mg tablet 2 mg PO DAILY Qty: 3 0RF Patient Comments: take 1 tablet by mouth once daily WITH FIRST MEAL OF THE DAY Rx Instructions: Hold if glucose less than 130 mg/dl torsemide 10 mg tablet 30 mg PO DAILY lisinopril 10 mg tablet 10 mg PO DAILY pantoprazole [Protonix] 40 mg tablet,delayed release (DR/EC) 40 mg PO BID metoprolol succinate 25 mg tablet extended release 24 hr 25 mg PO DAILY ferrous sulfate [FeroSul] 325 mg (65 mg iron) tablet 325 mg PO BID aspirin [Adult Aspirin Regimen] 81 mg tablet,delayed release (DR/EC) 81 mg PO DAILY Referrals / Follow Up: Emeka Hernandez MD [Primary Care Provider] - Within 2 Weeks (have a cbc rechecked) FriendFredy DO [Med Staff - Active Staff] - Within 1 Week Disposition Disposition (needs filled in before D/C Order can be placed): Home, Self Care
--- NOTE | 2023-12-28 14:27 | DS.PCM_ITS ---
Providers Date of Admission: 12/26/23 Date of Discharge: 12/28/23 Primary Care Physician: Dr. Emeka Hernandez MD Consultations 12/26/23 16:48 Consult: Gastroenterology Routine Consulting Provider: [facility] Reason for Consult: GI bleed EMERGENT Consult: No MD Notified: Yes Date Notified: 12/26/23 Time Notified: 15:39 Method of Notification: Verbal Reason For Visit: GI BLEED Diagnosis Discharge Diagnosis (1) Upper GI bleed: Status: Acute Code(s): K92.2 - Gastrointestinal hemorrhage, unspecified (2) Acute on chronic anemia: Status: Chronic Code(s): D64.9 - Anemia, unspecified Plan 1. Acute on chronic anemia-secondary to gastric ulcer, again I have decided to give the patient 1 unit of packed red blood cells today, he will be reevaluated for discharge later on today. 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5 mg base)/3 mL nebulization soln 3 ml inhalation 4X/DAY PRN sob 05/02/21 liothyronine 25 mcg tablet 25 mcg PO DAILY THYROID 05/02/21 tiotropium bromide 18 mcg capsule with inhalation device (Spiriva with HandiHaler) 18 mcg inhalation DAILY SOB 05/02/21 vitamins A,C,F-fndq-dxoudi 4,296 mcg-226 mg-90 mg capsule (PreserVision AREDS) 1 cap PO BID vitamin 12/13/21 glimepiride 2 mg tablet 2 mg PO DAILY DM #3 tabs 03/09/23 empagliflozin 10 mg tablet (Jardiance) 10 mg PO DAILY heart failure 30 days #30 tabs 04/26/23 lisinopril 10 mg tablet 10 mg PO DAILY HTN 06/27/23 metoprolol succinate 25 mg tablet,extended release 24 hr 25 mg PO DAILY heart 06/27/23 pantoprazole 40 mg tablet,delayed release (Protonix) 40 mg PO BID stomach 06/27/23 ferrous sulfate 325 mg (65 mg iron) tablet (FeroSul) 325 mg PO BID supplement 11/14/23 aspirin 81 mg tablet,delayed release (Adult Aspirin Regimen) 81 mg PO DAILY heart health 11/18/23 torsemide 10 mg tablet 30 mg PO DAILY diuretic 12/26/23 sucralfate 1 gram tablet (Carafate) 1 g PO TID #90 tabs 12/28/23 Hospital Course Operations None Procedures Blood transfusion and EGD Summary of Care Provided Minutes Spent on Discharge: 31 Hospital Course: This 83-year-old white male was seen in the emergency room at [facility] with complaints of black stool. He had undergone a colonoscopy recently which was unremarkable for any active bleeding but did show some colon polyps and diverticular disease. Patient had been admitted during that admission for acute on chronic heart failure with preserved ejection fraction. Labs obtained in the emergency room showed the patient's hemoglobin to be 8.3, creatinine was elevated at 2.75 and BUN was 126. Patient was admitted to PCU, labs were monitored and he underwent an EGD which showed a small gastric ulcer with oozing blood. Repeat hemoglobin finally dropped to 7.7 and I made the decision to transfuse patient 1 unit of packed red blood cells. On 12/28/2023, patient was seen and examined: On examination he appeared in good health and spirits. Vital signs as documented. Skin warm and dry and without overt rashes. Neck without JVD, neck was supple, trachea midline, thyroid was normal. Lungs clear bilaterally, normal air movement was noted. Heart exam notable for regular rhythm, normal sounds and absence of murmurs, rubs or gallops. Abdomen unremarkable and without evidence of organomegaly, masses, or abdominal aortic enlargement. Bowel sounds are present, abdomen is not distended. Extremities nonedematous, no cyanosis was noted, no clubbing was noted. Neuro: Cranial nerves II through XII are grossly intact, no focal motor deficits were noted, sensation to light touch and pinprick intact, motor exam 5/5 throughout. Psych: Patient is alert and oriented x3, he does not appear anxious or depressed, he does not appear agitated. Patient was felt to be stable for discharge home on 12/28/2023. Weight / BMI Weight Weight: 83.7 kg Body Mass Index (BMI) 30.7 ABG / Lab / Microbiology Data 12/28/23 05:39 12/27/23 05:10 Laboratory: Laboratory Results - last 24 hr 12/26/23 14:20: Crossmatch See Detail 12/27/23 05:10: Hgb 7.9 L, Hct 24.3 L, Iron 43 L, TIBC 264, Iron Saturation 16.3, Ferritin 32 12/27/23 16:15: POC Glucose 168 H 12/27/23 21:49: POC Glucose 159 H 12/28/23 05:39: WBC 5.6, RBC 2.48 L, Hgb 7.7 L, Hct 23.3 L, MCV 94.0, MCH 31.0, MCHC 33.0, RDW Std Deviation 46.5 H, RDW Coeff of John 13.6, Plt Count 108 L, MPV 11.3, Immature Gran % (Auto) 0.400, Neut % (Auto) 68.9, Lymph % (Auto) 16.5 L, [place] % (Auto) 9.7, Eos % (Auto) 3.8, Baso % (Auto) 0.7, Absolute Neuts (auto) 3.8, Absolute Lymphs (auto) 0.92, Nucleated RBC % 0 12/28/23 06:14: POC Glucose 116 H 12/28/23 11:19: POC Glucose 192 H D/C Instructions Discharge Diet: 1800 Calorie Control Diet Weight Bearing Status: Full weight bearing Meaningful Use Info Meaningful Use Meaningful Use Diagnoses (Choose all that apply): None applicable Ischemic Stroke Statin Dosing Therapy Reference: STATIN DOSE THERAPY REFERENCE: * Patients > 75 years receive moderate or high dose statin therapy. * Patients 75 years or YOUNGER should receive HIGH intensity statin dose unless contraindicated. You will be required to document reason for non-treatment if statin daily dose does not meet guidelines. HIGH DOSE STATIN THERAPY DAILY Atorvastatin > than or = to 40 mg Rosuvastatin > than or = to 20 mg Amlodipine + Atorvastatin > than or = to 2.5/40 mg Ezetimibe + Simvastatin 10/80 mg Simvastatin 80mg Discharge Plan Admission Admit Date/Time: 12/26/23 15:37 Primary Reason for Your Visit: upper GI bleed Attending Provider: Anthony Sosa Primary Care Provider: Emeka Hernandez Consulting Providers: Fred Ramos Discharge Orders/Prescriptions Prescriptions: New sucralfate [Carafate] 1 gram tablet 1 g PO TID Qty: 90 0RF Continued atorvastatin 80 mg tablet 80 mg PO DAILY ipratropium-albuterol 0.5 mg-3 mg(2.5 mg base)/3 mL solution for nebulization 3 ml inhalation 4X/DAY PRN (Reason: sob) Patient Comments: inhale contents of 1 vial ( 3 milliliters ) in nebulizer by mouth... (REFER TO PRESCRIPTION NOTES). liothyronine 25 mcg tablet 25 mcg PO DAILY Patient Comments: TAKE 1 TABLET BY MOUTH ONCE DAILY FOR 90 DAYS tiotropium bromide [Spiriva with HandiHaler] 18 mcg capsule, w/inhalation device 18 mcg INHALATION DAILY Patient Comments: INHALE THE CONTENTS OF 1 CAPSULE TWICE EACH TIME VIA HANDIHALER ONCE DAILY cholecalciferol (vitamin D3) 25 mcg (1,000 unit) Capsule 25 mcg PO DAILY PreserVision AREDS [id number] Capsule 1 cap PO BID Jardiance 10 mg Tablet 10 mg PO DAILY 30 Days Qty: 30 0RF glimepiride 2 mg tablet 2 mg PO DAILY Qty: 3 0RF Patient Comments: take 1 tablet by mouth once daily WITH FIRST MEAL OF THE DAY Rx Instructions: Hold if glucose less than 130 mg/dl torsemide 10 mg tablet 30 mg PO DAILY lisinopril 10 mg tablet 10 mg PO DAILY pantoprazole [Protonix] 40 mg tablet,delayed release (DR/EC) 40 mg PO BID metoprolol succinate 25 mg tablet extended release 24 hr 25 mg PO DAILY ferrous sulfate [FeroSul] 325 mg (65 mg iron) tablet 325 mg PO BID aspirin [Adult Aspirin Regimen] 81 mg tablet,delayed release (DR/EC) 81 mg PO DAILY Referrals / Follow Up: Emeka Hernandez MD [Primary Care Provider] - 01/17/24 4:40 pm (have a cbc rechecked) FriendFredy DO [Med Staff - Active Staff] - Within 1 Week Disposition Disposition (needs filled in before D/C Order can be placed): Home, Self Care Charges/Coding Visit Charges Inpatient E&M: 50054 Disch Hosp >30min
--- NOTE | 2023-12-28 14:59 | CASEMGMT ---
Patient has order for discharge. RN CM in to discuss needs at discharge. Patient to go home with resumption of CCN. Patient states family will bring oxygen tank from home for at discharge. Patient denied further needs or concerns. Patient had no further questions.
--- NOTE | 2023-12-31 15:27 | OP.EGD_ITS ---
Patient Name: Corona West Procedure Date: 12/27/2023 12:19 PM Date of : 1940 Age: 83 Procedure: Upper GI endoscopy Indications: Melena, Suspected acute peptic ulcer with hemorrhage Providers: Fredy Joy DO Medicines: Monitored Anesthesia Care Patient Profile: This is an 83 year old male. Refer to note in patient chart for documentation of history and physical. Patient has symptoms of acute epigastric abdominal pain. Complications: No immediate complications. Procedure: Pre-Anesthesia Assessment: - Prior to the procedure, a History and Physical was performed, and patient medications and allergies were reviewed. The patient is competent. The risks and benefits of the procedure and the sedation options and risks were discussed with the patient. All questions were answered and informed consent was obtained. Patient identification and proposed procedure were verified by the physician in the pre-procedure area. Mental Status Examination: alert and oriented. Airway Examination: normal oropharyngeal airway and neck mobility. Respiratory Examination: clear to auscultation. CV Examination: normal. Prophylactic Antibiotics: The patient does not require prophylactic antibiotics. Prior Anticoagulants: The patient has taken no anticoagulant or antiplatelet agents. ASA Grade Assessment: IV - A patient with severe systemic disease that is a constant threat to life. After reviewing the risks and benefits, the patient was deemed in satisfactory condition to undergo the procedure. The anesthesia plan was to use monitored anesthesia care (MAC). Immediately prior to administration of medications, the patient was re-assessed for adequacy to receive sedatives. The heart rate, respiratory rate, oxygen saturations, blood pressure, adequacy of pulmonary ventilation, and response to care were monitored throughout the procedure. The physical status of the patient was re-assessed after the procedure. After obtaining informed consent, the endoscope was passed under direct vision. Throughout the procedure, the patient's blood pressure, pulse, and oxygen saturations were monitored continuously. The gastroscope was introduced through the mouth, and advanced to the second part of duodenum. The upper GI endoscopy was accomplished without difficulty. The patient tolerated the procedure well. Scope In: 12:32:46 PM Scope Out: 12:37:07 PM Total Procedure Duration Time 0 hours 4 minutes 21 seconds Findings: The examined esophagus was normal. One oozing cratered gastric ulcer was found in the gastric antrum. The lesion was 6 mm in largest dimension. Biopsies were taken with a cold forceps for histology. Verification of patient identification for the specimen was done. Estimated blood loss was minimal. Biopsies were taken with a cold forceps for Helicobacter pylori testing. Verification of patient identification for the specimen was done. Estimated blood loss was minimal. The second portion of the duodenum was normal. Impression: - Normal esophagus. - Oozing gastric ulcer. Biopsied. - Normal second portion of the duodenum. Recommendation: - [facility]. - Full liquid diet today. - Continue present medications. - Await pathology results. Procedure Code(s): --- Professional --- 20403, Esophagogastroduodenoscopy, flexible, transoral; with biopsy, single or multiple CPT copyright 2021 [employer]. All rights reserved. The codes documented in this report are preliminary and upon kitchen mechanic review may be revised to meet current compliance requirements. Fredy Joy DO 12/27/2023 12:44:13 PM This report has been signed electronically. Number of Addenda: 0 Note Initiated On: 12/27/2023 12:19 PM
--- NOTE | 2023-12-31 15:27 | OP.CCLET_ITS ---
12/27/2023 Emeka Hernandez MD [address] [place] [address] Re : Upper GI endoscopy procedure for Corona West Dear Dr. Hernandez This procedure was performed on December. My impressions and recommendations are as follows: Impressions : - Normal esophagus. - Oozing gastric ulcer. Biopsied. - Normal second portion of the duodenum. Recommendations : - [facility]. - Full liquid diet today. - Continue present medications. - Await pathology results. My findings are described in the full procedure note, which is enclosed. If I can be of further assistance, please feel free to contact me at . Sincerely, Fredy Joy, 12/27/2023 12:44:13 PM This report has been signed electronically.
[2024-01-01 17:07] LABS: BNP,B-Type NATRIURETIC PEPTIDE 57.9 pg/mL (0.0-100.0)
== END 2023-12-28 17:31 | disposition home or self-care (01) | DRG 378 ==
LOC: ED 15:43 → PCU 16:01
PROVIDERS: Internal Medicine Gastroenterology; Admitting Provider Internal Medicine; Emergency Provider Emergency Medicine; PCP Family Medicine; Visit Provider Internal Medicine
PROC: 0DJ08ZZ Inspection of Upper Intestinal Tract, Via Natural or Artificial Opening Endoscopic (ICD-10-PCS; CPT 43235; principal; 2023-12-27 12:10)
DX: K25.4 Chronic or unspecified gastric ulcer with hemorrhage (principal); J96.11 Chronic respiratory failure with hypoxia; I13.0 Hypertensive heart and chronic kidney disease with heart failure and stage 1 through stage 4 chronic kidney disease, or unspecified chronic kidney disease; I50.32 Chronic diastolic (congestive) heart failure; N18.4 Chronic kidney disease, stage 4 (severe); E11.22 Type 2 diabetes mellitus with diabetic chronic kidney disease; D50.0 Iron deficiency anemia secondary to blood loss (chronic); E03.9 Hypothyroidism, unspecified; E78.00 Pure hypercholesterolemia, unspecified; J44.9 Chronic obstructive pulmonary disease, unspecified; I25.10 Atherosclerotic heart disease of native coronary artery without angina pectoris; I25.2 Old myocardial infarction; Z79.84 Long term (current) use of oral hypoglycemic drugs; Z79.82 Long term (current) use of aspirin; Z87.891 Personal history of nicotine dependence; Z99.81 Dependence on supplemental oxygen; Z86.73 Personal history of transient ischemic attack (TIA), and cerebral infarction without residual deficits; Z79.899 Other long term (current) drug therapy; Z98.49 Cataract extraction status, unspecified eye
CPT/HCPCS: 36415; 71045; 80048; 80053; 80076; 82728; 82962; 83036; 83540; 83550; 83735; 83880; 84100; 84484; 85014; 85018; 85025; 85610; 86850; 86900; 86901; 86920; 88305; 88342; 93005; 94640; 94668; 99285; J7120; P9016; A4216; J2405

== ENCOUNTER → 2024-01-09 | Outpatient (CLI) | payer MEDICARE, SELFPAY ==
[2024-01-09 15:35] LABS: Absolute Lymphocyte Count 1.19 X10^3/uL (0.83-4.51); Absolute Neutrophil Count 3.4 X10^3/uL (2.0-7.7); Basophil# 0.02 X10^3/uL; Basophil% 0.4 % (0-1); Eosinophil# 0.45 X10^3/uL; Eosinophils% 8.1 % (0-5); Hematocrit 29.9 % (40-54); Hemoglobin 9.4 g/dL (13.0-16.5); Lymphocyte # 1.19 X10^3/ul (0.83-4.51); Lymphocyte % 21.4 % (19-41); Mean Corp Hgb Conc 31.4 g/dL (32-36); Mean Corpuscular Hgb 30.3 pg (27.0-32.0); Mean Corpuscular Volume 96.5 fL (80-94); Mean Platelet Vol. 10.6 fl (6.2-12.0); Monocyte# 0.47 X10^3/uL; Monocyte% 8.4 % (0-10); NRBC Flagged by Analyzer 0 % (0-5); Neutrophil # 3.42 X10^3/uL (2.7-7.7); Neutrophil % 61.3 % (47-70); Platelet Count 102 K/mm3 (150-450); RBC Distribution Width SD 48.8 fl (35.1-43.9); White Blood Count 5.6 K/mm3 (4.4-11.0)
[2024-01-09 16:01] LABS: PTHIN 196.4 pg/mL (18.4-80.1)
[2024-01-09 16:05] LABS: ALB/GLOB Ratio 0.9 RATIO (0.9-2.4); AST(SGOT) 16 U/L (15-37); Alanine Aminotransfer ALT/SGPT 25 U/L (16-61); Albumin, Serum 3.4 g/dL (3.2-5.0); Alkaline Phosphatase 68 U/L (45-117); Anion Gap 3 (5-15); BUN 90 mg/dL (7-18); BUN/Creat Ratio 37.2 RATIO (10-20); Chloride 108 mmol/L (98-107); Creatinine, Serum 2.42 mg/dL (0.70-1.30); EST Glomerular Filtration Rate 27 mL/min (>60); Est Glom Filt Rate - Afr Amer 33 mL/min (>60); Globulin 3.6 g/dL (2.2-4.2); Glucose 79 mg/dL (74-106); Potassium 4.5 mmol/L (3.5-5.1); Sodium Level 143 mmol/L (136-145); Vitamin D,25 Hydroxy 33.8 ng/mL
[2024-01-09 16:28] LABS: Iron 75 ug/dL (65-175); Iron Binding Capacity,Total 289 ug/dL (250-450)
== END | disposition home or self-care (01) ==
PROVIDERS: Internal Medicine Nephrology; PCP Family Medicine; Referring Provider Student in an Organized Health Care Education/Training Program; Visit Provider Student in an Organized Health Care Education/Training Program
DX: N18.32 Chronic kidney disease, stage 3b (principal); D50.9 Iron deficiency anemia, unspecified; N17.9 Acute kidney failure, unspecified
CPT/HCPCS: 36415; 80053; 82306; 83540; 83550; 83970; 85025

== ENCOUNTER 2024-01-10 17:44 | Emergency (ER) | payer MEDICARE, SELFPAY ==
[2024-01-10] VITALS (9 sets, daily range): BP systolic 119–166; BP diastolic 42–84; PULSE 84–93; RESP 12–93; TEMP 36.6–36.7; O2SAT 98–100; BMI 31.0
[2024-01-10] MEDS: Ipratropium/Albuterol Sulfate 3 ML AMPUL.NEB INHALATION (18:09)
--- NOTE | 2024-01-10 18:28 | EKG12_ITS ---
Test Reason : DYSRHYTHMIA Blood Pressure : */* mmHG Vent. Rate : 81 BPM Atrial Rate : 81 BPM P-R Int : 222 ms QRS Dur : 86 ms QT Int : 368 ms P-R-T Axes : 31 -15 51 degrees QTcB Int : 427 ms Sinus rhythm with 1st degree A-V block Minimal voltage criteria for LVH, may be normal variant ( R in aVL ) Septal infarct , age undetermined Abnormal ECG Confirmed by JOSHUA CARRILLO, JACOB ([id number]), magazine editor ZACKARY MARTINEZ ([id number]) on 01/11/2024 8:23:08 AM Referred By: Confirmed By: JACOB LEWIS MD
--- NOTE | 2024-01-10 18:35 | RAD_ITS ---
STUDY: X-RAY CHEST REASON FOR EXAM: Male, 83 years old. SOB TECHNIQUE: AP portable view of the chest. COMPARISON: December 26, 2023 FINDINGS: There are monitoring devices. There is mild lower lung scarring or atelectasis. There is no demonstrated pleural abnormality. Normal size heart. Normal mediastinum and purnima. Normal visualized pulmonary arteries. There is atherosclerotic calcification of the aortic arch with tortuosity. There are diffuse degenerative changes of the visualized thoracic spine. Normal visualized ribs, clavicles, and shoulders. There is no demonstrated abnormality of the visualized soft tissue structures of the upper abdomen. RAD/Chest 1 View (Portable) IMPRESSION: Degenerative changes, as described above. No demonstrated acute cardiopulmonary process. Electronically Signed: Eric Alston MD at 19:20 EDT ,
[2024-01-10] MEDS: MethylPREDNISolone 125 MG/2 ML Vial 60 MG IV (18:59)
[2024-01-10 19:00] LABS: Absolute Lymphocyte Count 0.97 X10^3/uL (0.83-4.51); Absolute Neutrophil Count 2.9 X10^3/uL (2.0-7.7); Basophil# 0.02 X10^3/uL; Basophil% 0.4 % (0-1); Eosinophil# 0.34 X10^3/uL; Eosinophils% 7.3 % (0-5); Hematocrit 27.8 % (40-54); Hemoglobin 8.9 g/dL (13.0-16.5); Lymphocyte # 0.97 X10^3/ul (0.83-4.51); Mean Corpuscular Hgb 31.1 pg (27.0-32.0); Mean Corpuscular Volume 97.2 fL (80-94); Mean Platelet Vol. 11.5 fl (6.2-12.0); Monocyte# 0.39 X10^3/uL; Monocyte% 8.4 % (0-10); NRBC Flagged by Analyzer 0 % (0-5); Neutrophil % 62.7 % (47-70); POSITIVE COUNT YES; Platelet Count 91 K/mm3 (150-450); RBC Distribution Width SD 49.9 fl (35.1-43.9); Red Blood Count 2.86 M/mm3 (4.6-6.2); White Blood Count 4.6 K/mm3 (4.4-11.0)
[2024-01-10 19:04] LABS: Differential Indicated SCAN CRITERIA MET
[2024-01-10 19:11] LABS: Anion Gap 7 (5-15); BUN 90 mg/dL (7-18); BUN/Creat Ratio 36.3 RATIO (10-20); Calcium,Total 8.6 mg/dL (8.5-10.1); Chloride 110 mmol/L (98-107); Creatinine, Serum 2.48 mg/dL (0.70-1.30); EST Glomerular Filtration Rate 27 mL/min (>60); Est Glom Filt Rate - Afr Amer 32 mL/min (>60); Estimated Creatinine Clearance 21.44 ml/min; Glucose 175 mg/dL (74-106); Potassium 4.5 mmol/L (3.5-5.1); Sodium Level 145 mmol/L (136-145)
[2024-01-10 19:27] LABS: Differential Comment SCANNED
--- NOTE | 2024-01-10 19:31 | ED.VIS.DYS ---
HPI History of Present Illness Chief Complaint: Shortness of Breath Informant: patient Narrative Narrative: COPD history chronic 3 L oxygen in setting dyspnea wheeze 4 PM. Denies any recent cough. He was admitted last week for GI bleed endoscopy x 2 with cauterizations given total of 4 units of blood. He was discharged this past Sunday. He was doing fine up till 4 PM. No fevers or chills. No sick contacts. Remote tobacco. Denies chest pains. No cardiac history. He is followed by GI Dr. Friend. He reports he had blood work drawn recently he had a call from nursing today however did not understand over the phone. He was not referred to the ED. He does have history of CKD not on dialysis. Prior similar symptoms: Yes PFSH [facility] Medical History Anemia Upper GI bleed History of valvular heart disease Acute on chronic anemia Acute dyspnea Acute on chronic renal insufficiency Acute on chronic anemia Symptomatic anemia Abnormal ECG Elevated troponin Shortness of breath Acute upper gastrointestinal bleeding Essential hypertension Renal insufficiency Non-ST elevation (NSTEMI) myocardial infarction COPD (chronic obstructive pulmonary disease) Loss of hearing No natural teeth Wears glasses Poor historian Thyroid disease Low iron High cholesterol Syncope History of GI bleed Shortness of breath on exertion History of echocardiogram Cardiology follow-up encounter Symptomatic anemia Diabetes Kidney disease Former smoker On home oxygen therapy TIA (transient ischemic attack) Myocardial infarct Hypertension Diastolic CHF Acute and chronic respiratory failure with hypoxia History of CAD (coronary artery disease) Nonrheumatic aortic (valve) stenosis Mild left ventricular hypertrophy History of left heart catheterization (LHC) (~03/15/22) Atherosclerotic heart disease of [place] coronary artery without angina pectoris Aortic valve stenosis, acquired CAD (coronary artery disease) COPD (chronic obstructive pulmonary disease) Polyarthralgia Diabetes mellitus, type 2 Former tobacco use Obesity Hypothyroidism HLD (hyperlipidemia) HTN (hypertension) Chronic respiratory failure with hypoxia Home Medications ?Medication ?Instructions ?Recorded ?Last Taken ?Type atorvastatin 80 mg tablet 80 mg PO DAILY CHOLESTEROL 05/02/21 12/05/23 History cholecalciferol (vitamin D3) 25 25 mcg PO DAILY vitamin 05/02/21 12/06/23 History mcg (1,000 unit) capsule ipratropium 0.5 mg-albuterol 3 mg 3 ml inhalation 4X/DAY PRN sob 05/02/21 11/18/23 History (2.5 mg base)/3 mL nebulization soln liothyronine 25 mcg tablet 25 mcg PO DAILY THYROID 05/02/21 12/06/23 History tiotropium bromide 18 mcg capsule 18 mcg inhalation DAILY SOB 05/02/21 11/17/23 History with inhalation device (Spiriva with HandiHaler) vitamins A,C,T-kbap-tznyic 4,296 1 cap PO BID vitamin 12/13/21 12/06/23 History mcg-226 mg-90 mg capsule (PreserVision AREDS) glimepiride 2 mg tablet 2 mg PO DAILY DM #3 tabs 03/09/23 12/06/23 Rx empagliflozin 10 mg tablet 10 mg PO DAILY heart failure 30 04/26/23 12/06/23 Rx (Jardiance) days #30 tabs lisinopril 10 mg tablet 10 mg PO DAILY HTN 06/27/23 12/06/23 History metoprolol succinate 25 mg 25 mg PO DAILY heart 06/27/23 12/05/23 History tablet,extended release 24 hr pantoprazole 40 mg tablet,delayed 40 mg PO BID stomach 06/27/23 12/06/23 History release (Protonix) ferrous sulfate 325 mg (65 mg 325 mg PO BID supplement 11/14/23 12/06/23 History iron) tablet (FeroSul) aspirin 81 mg tablet,delayed 81 mg PO DAILY heart health 11/18/23 12/06/23 History release (Adult Aspirin Regimen) torsemide 10 mg tablet 30 mg PO DAILY diuretic 12/26/23 Unknown History sucralfate 1 gram tablet (Carafate) 1 g PO TID #90 tabs 12/28/23 Unknown Rx prednisone 20 mg tablet 40 mg (2 x 20 mg) PO DAILY #8 01/10/24 Unknown Rx TABLETS Allergy/AdvReac Type Severity Reaction Status Date / Time aliskiren (From Valturna) Allergy Intermediate Other Verified 01/10/24 17:50 valsartan (From Valturna) Allergy Intermediate Other Verified 01/10/24 17:50 codeine AdvReac Upset Verified 01/10/24 17:50 Stomach Family History Mother CVA (cerebral vascular accident) Heart disease Myocardial infarction Hx of CABG Hypertension Father CVA (cerebral vascular accident) Heart disease Surgical History S/P cataract extraction Social History household members: none housing: house Smoking Status: Former smoker how long ago did patient quit smoking: Quit 2011, prior 1 ppd since teen. alcohol intake: former year quit: 2010 substance use type: does not use ROS ROS ED Constitutional Constitutional ED: Denies chills, fever(s) or sweats Eyes Eyes: Denies change in vision ENT ENT ED: Denies dysphagia or sore throat Cardiovascular Cardiovascular: Denies chest pain, leg edema, palpitations or racing heartbeat Respiratory/Chest Respiratory/Chest: Reports dyspnea; Denies cough or dyspnea on exertion Gastrointestinal Gastrointestinal: Denies abdominal pain, diarrhea, nausea or vomiting Genitourinary Genitourinary ED: Denies dysuria, hematuria or urinary frequency Musculoskeletal Musculoskeletal: Denies back pain, extremity pain or neck pain Integumentary Denies rash or wounds Neurologic Neurologic: Denies headache(s), paresthesias or weakness EXAM Physical Exam Const Vital Signs: 01/10/24 17:45 01/10/24 17:49 01/10/24 18:09 Temperature 98.1 F 98.1 F Temperature Source Oral Oral Pulse Rate 87 91 84 Respiratory Rate 28 H 28 H 27 H Respiratory Effort Respiratory Pattern Tachypnea Blood Pressure 166/57 H 166/57 H Blood Pressure Mean 93 93 Pulse Ox 99 99 Oxygen Delivery Method Nasal Cannula Nasal Cannula Oxygen Flow Rate (L/min) 3 3 01/10/24 18:09 01/10/24 18:31 01/10/24 18:49 Temperature 97.9 F Temperature Source Oral Pulse Rate 93 Respiratory Rate 93 H Respiratory Effort Short of Breath Accessory Muscle Use Pursed Lip Respiratory Pattern Tachypnea Blood Pressure 144/42 H Blood Pressure Mean 76 Pulse Ox 99 98 Oxygen Delivery Method Nasal Cannula Nasal Cannula Nasal Cannula Oxygen Flow Rate (L/min) 3 3 01/10/24 19:00 01/10/24 20:00 01/10/24 20:00 Temperature 97.9 F 97.8 F Temperature Source Oral Oral Pulse Rate 93 88 90 Respiratory Rate 12 24 H 18 Respiratory Effort Respiratory Pattern Blood Pressure 149/55 H 150/49 H 150/49 H Blood Pressure Mean 86 82 82 Pulse Ox 99 100 100 Oxygen Delivery Method Nasal Cannula Nasal Cannula Nasal Cannula Oxygen Flow Rate (L/min) 3 3 01/10/24 20:48 01/10/24 21:00 Temperature 97.8 F Temperature Source Pulse Rate 92 Respiratory Rate 22 H 18 Respiratory Effort Respiratory Pattern Blood Pressure 119/84 H Blood Pressure Mean 95 Pulse Ox 99 99 Oxygen Delivery Method Nasal Cannula Oxygen Flow Rate (L/min) 3 Positive well nourished and well developed Constitutional Narrative: 3 L nasal cannula no resp distress. Examined after aerosol treatments. General Appearance ED: well developed and NAD HEENT Reports moist mucous membranes normocephalic and atraumatic Eyes EOMs intact bilaterally and conjunctivae normal General Eye ED: Yes normal appearance of both eyes Neck no lymphadenopathy and supple General: Negative for tenderness Chest Wall Chest: Negative for tenderness Resp normal respiratory effort and normal air movement Effort and Inspection: symmetric chest movement; Negative for respiratory distress Cardio regular rate, regular rhythm and no murmurs Peripheral Pulses: pulses 2+ throughout GI normal to inspection, nondistended, normoactive bowel sounds and non-tender Palpation: Negative for guarding or rebound tenderness present Back/Spine no CVA tenderness and no thoracic nor lumbar tenderness Extremity normal to inspection General Extremety ED: Negative for edema or tenderness General Extremity: Negative for edema Neuro oriented x3 and no sensory deficits noted Sensorium / Orientation: awake and alert Skin no rashes or lesions noted and no wounds MDM MDM MDM Narrative Medical decision making narrative: Interventions / MDM: Differential diagnosis: COPD, anemia, CKD Diagnosis considered but do not suspect: pneumonia however chest x-ray negative. My EKG interpretation: Sinus rate of 81, no ST changes. Imaging independently reviewed and interpreted by myself: 1 view chest x-ray: No acute process External documents reviewed: N/A Test considered but not ordered:N/A ED course: Due to critical patients Emergency Department aerosol treatments were given by respiratory therapy prior to my evaluation. They reported he had very diminished breath sounds at the bases unable to move air however after treatments he feels much better back to his baseline. COPD history reported wheezing will give steroids. Chest x-ray. EKG sinus rhythm. Laboratory studies obtained, nasal swab sent. Labs stable anemia 8.9. Stable CKD at 2.48. Chest x-ray today. Reevaluation clinically made stable 3 L no respiratory distress. Glucose elevated at 175 normal gap. No productive sputum therefore no indication for antibiotics with his COPD history. Will continue steroids 40 mg daily for next 4 days he will monitor his glucose. He has aerosol treatments at home. Considered admission however clinically improved stable on his 3 L of oxygen. Return precaution discussed. All questions were answered. Re-evaluation: stable Disposition discussed with patient/family/significant other: Patient Case discussed with consulting clinician: N/A This note was generated with [employer] dictation software. It may contain incorrect words, spelling, and punctuation that were not noted in checking the note before signing. Lab Data Attestation: I reviewed the patient's lab results. Labs: Laboratory Results - last 24 hr 01/10/24 17:56 WBC 4.6 RBC 2.86 L Hgb 8.9 L Hct 27.8 L MCV 97.2 H MCH 31.1 MCHC 32.0 RDW Std Deviation 49.9 H RDW Coeff of John 14.0 Plt Count 91 L MPV 11.5 Immature Gran % (Auto) 0.200 Neut % (Auto) 62.7 Lymph % (Auto) 21.0 [place] % (Auto) 8.4 Eos % (Auto) 7.3 H Baso % (Auto) 0.4 Absolute Neuts (auto) 2.9 Absolute Lymphs (auto) 0.97 Nucleated RBC % 0 Differential Comment SCANNED Reactive Lymphocytes PROJECT ASSISTANT Smudge Cells Not Reportable Platelet Estimate MOD DEC Sodium 145 Potassium 4.5 Chloride 110 H Carbon Dioxide 28.0 Anion Gap 7 BUN 90 H Creatinine 2.48 H Estim Creat Clear Calc 21.44 Est GFR (MDRD) Af Amer 32 L Est GFR (MDRD) Non-Af 27 L BUN/Creatinine Ratio 36.3 H Glucose 175 H Calcium 8.6 Radiography Diagnostic Testing: Clinical Impression(s) from Imaging Studies Chest X-Ray 01/10/24 18:35 IMPRESSION: Degenerative changes, as described above. No demonstrated acute cardiopulmonary process. Electronically Signed: Eric Alston MD at 19:20 EDT , Discharge Plan Triage Chief Complaint: Shortness of Breath ED Provider: Randy Villanueva Dx/Rx/DC Orders Clinical Impression: COPD exacerbation, Anemia, Chronic kidney disease, stage 3b, Oxygen dependent Instructions: Anemia, CKD Dc, COPD Controlled Breathing Dc Prescriptions: New prednisone 20 mg tablet 40 mg PO DAILY Qty: 8 0RF Rx Instructions: Next dose 01/11/2024 No Action atorvastatin 80 mg tablet 80 mg PO DAILY ipratropium-albuterol 0.5 mg-3 mg(2.5 mg base)/3 mL solution for nebulization 3 ml inhalation 4X/DAY PRN (Reason: sob) Patient Comments: inhale contents of 1 vial ( 3 milliliters ) in nebulizer by mouth... (REFER TO PRESCRIPTION NOTES). liothyronine 25 mcg tablet 25 mcg PO DAILY Patient Comments: TAKE 1 TABLET BY MOUTH ONCE DAILY FOR 90 DAYS tiotropium bromide [Spiriva with HandiHaler] 18 mcg capsule, w/inhalation device 18 mcg INHALATION DAILY Patient Comments: INHALE THE CONTENTS OF 1 CAPSULE TWICE EACH TIME VIA HANDIHALER ONCE DAILY cholecalciferol (vitamin D3) 25 mcg (1,000 unit) Capsule 25 mcg PO DAILY PreserVision AREDS [id number] Capsule 1 cap PO BID Jardiance 10 mg Tablet 10 mg PO DAILY 30 Days Qty: 30 0RF glimepiride 2 mg tablet 2 mg PO DAILY Qty: 3 0RF Patient Comments: take 1 tablet by mouth once daily WITH FIRST MEAL OF THE DAY Rx Instructions: Hold if glucose less than 130 mg/dl torsemide 10 mg tablet 30 mg PO DAILY sucralfate [Carafate] 1 gram tablet 1 g PO TID Qty: 90 0RF lisinopril 10 mg tablet 10 mg PO DAILY pantoprazole [Protonix] 40 mg tablet,delayed release (DR/EC) 40 mg PO BID metoprolol succinate 25 mg tablet extended release 24 hr 25 mg PO DAILY ferrous sulfate [FeroSul] 325 mg (65 mg iron) tablet 325 mg PO BID aspirin [Adult Aspirin Regimen] 81 mg tablet,delayed release (DR/EC) 81 mg PO DAILY Primary Care Provider: Emeka Hernandez Referrals: Emeka Hernandez MD [Primary Care Provider] - 3-5 Days Activity Restrictions/Additional Instructions: Chest x-ray negative. COVID, influenza, RSV negative. Take and finish steroids as prescribed. Continue your nebulizer. Blood counts stable hemoglobin 8.9. Creatinine 2.48. Stable from previous labs. Follow-up with your doctor. Symptoms recur and worsens, return to ED for reevaluation. Print Language: [place]ian Disposition Disposition: Home, Self Care
[2024-01-10 19:58] LABS: Platelet Estimate MOD DEC (ADEQ)
== END 2024-01-10 21:41 | disposition home or self-care (01) ==
PROVIDERS: Emergency Provider Emergency Medicine; PCP Family Medicine; Visit Provider Emergency Medicine
DX: J44.1 Chronic obstructive pulmonary disease with (acute) exacerbation (principal); I13.0 Hypertensive heart and chronic kidney disease with heart failure and stage 1 through stage 4 chronic kidney disease, or unspecified chronic kidney disease; I50.30 Unspecified diastolic (congestive) heart failure; E11.22 Type 2 diabetes mellitus with diabetic chronic kidney disease; N18.32 Chronic kidney disease, stage 3b; E78.00 Pure hypercholesterolemia, unspecified; Z87.891 Personal history of nicotine dependence; D64.9 Anemia, unspecified; I25.10 Atherosclerotic heart disease of native coronary artery without angina pectoris; Z99.81 Dependence on supplemental oxygen; I25.2 Old myocardial infarction; Z86.73 Personal history of transient ischemic attack (TIA), and cerebral infarction without residual deficits; Z79.899 Other long term (current) drug therapy; Z79.84 Long term (current) use of oral hypoglycemic drugs; E03.9 Hypothyroidism, unspecified; Z98.49 Cataract extraction status, unspecified eye
CPT/HCPCS: 71045; 80048; 85025; 87631; 93005; 94640; 96374; 99285; A4216

== ENCOUNTER → 2024-01-22 | Outpatient (CLI) | payer MEDICARE, SELFPAY ==
[2024-01-22 10:34] LABS: Hematocrit 29.4 % (40-54); Hemoglobin 9.4 g/dL (13.0-16.5); Mean Corpuscular Hgb 30.6 pg (27.0-32.0); Mean Corpuscular Volume 95.8 fL (80-94); Mean Platelet Vol. 11.4 fl (6.2-12.0); POSITIVE COUNT YES; Platelet Count 92 K/mm3 (150-450); RBC Distribution Width CV 13.5 % (11.6-14.6); RBC Distribution Width SD 47.8 fl (35.1-43.9); Red Blood Count 3.07 M/mm3 (4.6-6.2); White Blood Count 8.8 K/mm3 (4.4-11.0)
[2024-01-22 10:51] LABS: PTHIN 186.8 pg/mL (18.4-80.1)
[2024-01-22 10:55] LABS: Vitamin D,25 Hydroxy 34.1 ng/mL
[2024-01-22 10:55] LABS: Cholesterol 180 mg/dL (200); High Density Lipoprotein 42 mg/dL; Triglycerides 216 mg/dL; Very Low Density Lipoprotein 43 mg/dL (5-40)
[2024-01-22 10:57] LABS: AST(SGOT) 12 U/L (15-37); Alanine Aminotransfer ALT/SGPT 22 U/L (16-61); Albumin, Serum 3.5 g/dL (3.2-5.0); Alkaline Phosphatase 67 U/L (45-117); Anion Gap 8 (5-15); BUN 74 mg/dL (7-18); Calcium,Total 9.4 mg/dL (8.5-10.1); Chloride 106 mmol/L (98-107); Creatinine, Serum 2.31 mg/dL (0.70-1.30); EST Glomerular Filtration Rate 29 mL/min (>60); Est Glom Filt Rate - Afr Amer 35 mL/min (>60); Globulin 3.5 g/dL (2.2-4.2); Glucose 191 mg/dL (74-106); Sodium Level 142 mmol/L (136-145)
[2024-01-22 12:32] LABS: Hemoglobin A1c 6.1 % (3.8-5.6)
== END | disposition home or self-care (01) ==
LOC: POLAB3 10:13
PROVIDERS: PCP Family Medicine; Visit Provider Internal Medicine Nephrology
DX: D50.9 Iron deficiency anemia, unspecified (principal); E11.22 Type 2 diabetes mellitus with diabetic chronic kidney disease; N18.32 Chronic kidney disease, stage 3b; N17.9 Acute kidney failure, unspecified
CPT/HCPCS: 36415; 80053; 80061; 82306; 83036; 83970; 85027

== ENCOUNTER 2024-02-02 22:06 | Inpatient (IN) | payer MEDICARE, SELFPAY ==
[2024-02-02 22:07] VITALS: BP 143/116; PULSE 86; RESP 23; TEMP 36.8; O2SAT 100; BMI 32.7
[2024-02-02 22:09] VITALS: BP 143/116; PULSE 86; RESP 22; TEMP 36.8; O2SAT 100
[2024-02-02 22:12] VITALS: O2SAT 100
--- NOTE | 2024-02-02 22:12 | EKG12_ITS ---
Test Reason : SOB Blood Pressure : */* mmHG Vent. Rate : 99 BPM Atrial Rate : 99 BPM P-R Int : 204 ms QRS Dur : 88 ms QT Int : 354 ms P-R-T Axes : 119 -12 73 degrees QTcB Int : 454 ms Normal sinus rhythm Minimal voltage criteria for LVH, may be normal variant ( R in aVL ) Nonspecific ST and T wave abnormality Abnormal ECG Confirmed by Trell Kendrick ([id number]), video tape editor ZACKARY MARTINEZ ([id number]) on 02/05/2024 10:26:14 AM Referred By: Confirmed By: Trell Kendrick
--- NOTE | 2024-02-02 22:21 | EDS_ITS ---
HPI History of Present Illness Chief Complaint: Shortness of Breath Informant: patient Narrative Narrative: History of COPD chronic 3 L oxygen by EMS worsening dyspnea with the last few days. Denies chest pain denies cough. Denies history of heart failure. Hosp italization last couple months with GI bleed with cauterization was given blood total of 4 units. He was seen in the last month by myself for similar COPD flares improved with steroids. He was not hospitalized then. Denies vomiting diarrhea. Denies fevers. Denies myalgias. History of CKD not on dialysis. Prior similar symptoms: Yes PFSH PFS Medical History Anemia Upper GI bleed History of valvular heart disease Acute on chronic anemia Acute dyspnea Acute on chronic renal insufficiency Acute on chronic anemia Symptomatic anemia Abnormal ECG Elevated troponin Shortness of breath Acute upper gastrointestinal bleeding Essential hypertension Renal insufficiency Non-ST elevation (NSTEMI) myocardial infarction COPD (chronic obstructive pulmonary disease) Loss of hearing No natural teeth Wears glasses Poor historian Thyroid disease Low iron High cholesterol Syncope History of GI bleed Shortness of breath on exertion History of echocardiogram Cardiology follow-up encounter Symptomatic anemia Diabetes Kidney disease Former smoker On home oxygen therapy TIA (transient ischemic attack) Myocardial infarct Hypertension Diastolic CHF Acute and chronic respiratory failure with hypoxia History of CAD (coronary artery disease) Nonrheumatic aortic (valve) stenosis Mild left ventricular hypertrophy History of left heart catheterization (LHC) (~03/15/22) Atherosclerotic heart disease of [place] coronary artery without angina pectoris Aortic valve stenosis, acquired CAD (coronary artery disease) COPD (chronic obstructive pulmonary disease) Polyarthralgia Diabetes mellitus, type 2 Former tobacco use Obesity Hypothyroidism HLD (hyperlipidemia) HTN (hypertension) Chronic respiratory failure with hypoxia Home Medications ?Medication ?Instructions ?Recorded ?Last Taken ?Type atorvastatin 80 mg tablet 80 mg PO DAILY CHOLESTEROL 05/02/21 12/05/23 History cholecalciferol (vitamin D3) 25 25 mcg PO DAILY vitamin 05/02/21 12/06/23 History mcg (1,000 unit) capsule ipratropium 0.5 mg-albuterol 3 mg 3 ml inhalation 4X/DAY PRN sob 05/02/21 11/18/23 History (2.5 mg base)/3 mL nebulization soln liothyronine 25 mcg tablet 25 mcg PO DAILY THYROID 05/02/21 12/06/23 History tiotropium bromide 18 mcg capsule 18 mcg inhalation DAILY SOB 05/02/21 11/17/23 History with inhalation device (Spiriva with HandiHaler) vitamins A,C,R-fgms-ioglnm 4,296 1 cap PO BID vitamin 12/13/21 12/06/23 History mcg-226 mg-90 mg capsule (PreserVision AREDS) glimepiride 2 mg tablet 2 mg PO DAILY DM #3 tabs 03/09/23 12/06/23 Rx empagliflozin 10 mg tablet 10 mg PO DAILY heart failure 30 04/26/23 12/06/23 Rx (Jardiance) days #30 tabs lisinopril 10 mg tablet 10 mg PO DAILY HTN 06/27/23 12/06/23 History metoprolol succinate 25 mg 25 mg PO DAILY heart 06/27/23 12/05/23 History tablet,extended release 24 hr pantoprazole 40 mg tablet,delayed 40 mg PO DAILY stomach 06/27/23 12/06/23 History release (Protonix) ferrous sulfate 325 mg (65 mg 325 mg PO BID supplement 11/14/23 12/06/23 History iron) tablet (FeroSul) aspirin 81 mg tablet,delayed 81 mg PO DAILY heart health 11/18/23 12/06/23 History release (Adult Aspirin Regimen) sucralfate 1 gram tablet (Carafate) 1 g PO TID #90 tabs 12/28/23 Unknown Rx prednisone 20 mg tablet 40 mg (2 x 20 mg) PO DAILY #8 01/10/24 Unknown Rx TABLETS torsemide 5 mg tablet 5 mg PO DAILY 01/29/24 Unknown History furosemide 40 mg tablet 40 mg PO DAILY 02/02/24 Unknown History Allergy/AdvReac Type Severity Reaction Status Date / Time aliskiren (From Valturna) Allergy Intermediate Other Verified 02/02/24 22:11 valsartan (From Valturna) Allergy Intermediate Other Verified 02/02/24 22:11 codeine AdvReac Upset Verified 02/02/24 22:11 Stomach Family History Mother CVA (cerebral vascular accident) Heart disease Myocardial infarction Hx of CABG Hypertension Father CVA (cerebral vascular accident) Heart disease Surgical History S/P cataract extraction Social History household members: none housing: house Smoking Status: Former smoker how long ago did patient quit smoking: Quit 2011, prior 1 ppd since teen. alcohol intake: former year quit: 2010 substance use type: does not use ROS ROS ED Constitutional Constitutional ED: Denies chills, fever(s) or sweats Eyes Eyes: Denies change in vision ENT ENT ED: Denies dysphagia or sore throat Cardiovascular Cardiovascular: Denies chest pain, leg edema, palpitations or racing heartbeat Respiratory/Chest Respiratory/Chest: Reports dyspnea; Denies cough or dyspnea on exertion Gastrointestinal Gastrointestinal: Denies abdominal pain, diarrhea, nausea or vomiting Genitourinary Genitourinary ED: Denies dysuria, hematuria or urinary frequency Musculoskeletal Musculoskeletal: Denies back pain, extremity pain or neck pain Integumentary Denies rash or wounds Neurologic Neurologic: Denies headache(s), paresthesias or weakness EXAM Physical Exam Const Vital Signs: 02/02/24 22:07 02/02/24 22:09 02/02/24 22:12 Temperature 98.3 F 98.3 F Temperature Source Oral Oral Pulse Rate 86 86 Respiratory Rate 23 H 22 H Respiratory Effort Respiratory Pattern Blood Pressure 143/116 H 143/116 H Blood Pressure Mean 125 125 Pulse Ox 100 100 100 Oxygen Delivery Method Nasal Cannula Nasal Cannula Nasal Cannula Oxygen Flow Rate (L/min) 4 4 4 02/02/24 22:26 02/02/24 23:07 02/02/24 23:09 Temperature 97.7 F L Temperature Source Oral Pulse Rate 92 96 Respiratory Rate 24 H 22 H Respiratory Effort Short of Breath Labored Respiratory Pattern Tachypnea Blood Pressure 139/46 H 148/132 H Blood Pressure Mean 77 137 Pulse Ox 100 99 Oxygen Delivery Method Nasal Cannula Nasal Cannula Nasal Cannula Oxygen Flow Rate (L/min) 4 4 4 02/03/24 00:00 02/03/24 00:00 02/03/24 00:06 Temperature 98.3 F 98.3 F Temperature Source Oral Pulse Rate 100 95 95 Respiratory Rate 27 H 22 H 19 H Respiratory Effort Respiratory Pattern Blood Pressure 128/46 H 128/46 H 128/46 H Blood Pressure Mean 73 73 73 Pulse Ox 99 99 100 Oxygen Delivery Method Nasal Cannula Nasal Cannula Oxygen Flow Rate (L/min) 4 4 Positive well nourished and well developed Constitutional Narrative: 4 L nasal cannula, nontoxic General Appearance ED: well developed and NAD HEENT Reports moist mucous membranes normocephalic and atraumatic Eyes EOMs intact bilaterally Eyes Narrative: Mild pallor conjunctiva. General Eye ED: Yes normal appearance of both eyes Neck no lymphadenopathy and supple General: Negative for tenderness Chest Wall Chest: Negative for tenderness Resp normal respiratory effort and normal air movement Resp Narrative: No wheezing breath sounds heard bilateral bases. Effort and Inspection: symmetric chest movement; Negative for respiratory distress Cardio regular rate, regular rhythm and no murmurs Peripheral Pulses: pulses 2+ throughout GI normal to inspection, nondistended, normoactive bowel sounds and non-tender Palpation: Negative for guarding or rebound tenderness present Back/Spine no CVA tenderness and no thoracic nor lumbar tenderness Extremity normal to inspection General Extremety ED: Negative for edema or tenderness General Extremity: Negative for edema Neuro oriented x3 and no sensory deficits noted Sensorium / Orientation: awake and alert Skin no rashes or lesions noted and no wounds MDM MDM MDM Narrative Medical decision making narrative: Interventions / MDM: Differential diagnosis: COPD, anemia, acute on chronic respiratory failure, CKD Diagnosis considered but do not suspect: N/A My EKG interpretation: Sinus rhythm 99, no ST or T wave changes. Imaging independently reviewed and interpreted by myself: 1 view chest x-ray: No acute process also read by radiology External documents reviewed: Heart catheterization March 2022: Nonobstructive coronary disease 25% left main, 50% diagonal 1. Test considered but not ordered:N/A ED course: Patient on 4 L nasal cannula. Wheezing at home status post aerosol treatments at home. Will start Solu-Medrol with his COPD history. Will check EKG labs and chest x-ray. EKG sinus rhythm with no acute findings. 2340: Hemoglobin 7.5 down from 9.4. Rectal exam Brown stool was Hemoccult returning negative. Currently on 4 L. No pneumonia on x-ray. Dyspnea could be multifactorial with his COPD along with anemia. Patient denies any cough th erefore no antibiotics indicated at this time. I will speak with hospitalist for admission. Discussed with hospitalist Dr. Sarkar for admission Re-evaluation: stable Disposition discussed with patient/family/significant other: Patient Case discussed with consulting clinician: Hospitalist This note was generated with [employer] dictation software. It may contain incorrect words, spelling, and punctuation that were not noted in checking the note before signing. Lab Data Attestation: I reviewed the patient's lab results. Labs: Laboratory Results - last 24 hr 02/02/24 22:07 WBC 5.6 RBC 2.40 L Hgb 7.5 L Hct 24.2 L MCV 100.8 H MCH 31.3 MCHC 31.0 L RDW Std Deviation 54.6 H RDW Coeff of John 15.0 H Plt Count 115 L MPV 10.7 Immature Gran % (Auto) 0.400 Neut % (Auto) 72.8 H Lymph % (Auto) 15.8 L [place] % (Auto) 6.8 Eos % (Auto) 4.0 Baso % (Auto) 0.2 Absolute Neuts (auto) 4.1 Absolute Lymphs (auto) 0.88 Nucleated RBC % 0 Sodium 145 Potassium 4.7 Chloride 112 H Carbon Dioxide 27.0 Anion Gap 6 BUN 62 H Creatinine 2.35 H Estim Creat Clear Calc 23.21 Est GFR (MDRD) Af Amer 34 L Est GFR (MDRD) Non-Af 28 L BUN/Creatinine Ratio 26.4 H Glucose 248 H Calcium 8.9 Troponin I High Sens 28 B-Natriuretic Peptide 188.6 H Radiography Diagnostic Testing: Clinical Impression(s) from Imaging Studies Chest X-Ray 02/02/24 22:30 IMPRESSION: No radiographic evidence of acute cardiopulmonary disease. Electronically Signed: Manuel Her MD at 23:15 EST , Discharge Plan Dx/Rx/DC Orders Clinical Impression: COPD exacerbation, History of diabetes mellitus, Anemia, Acute on chronic respiratory failure Disposition Disposition: [facility]
[2024-02-02 22:26] VITALS: O2SAT 100
[2024-02-02] MEDS: MethylPREDNISolone 125 MG/2 ML Vial 60 MG IV (22:27)
--- NOTE | 2024-02-02 22:30 | RAD_ITS ---
EXAM: XR CHEST, 1 VIEW CLINICAL INDICATION: sob TECHNIQUE: Frontal view of the chest. COMPARISON: 01/10/2024 FINDINGS: LUNGS AND PLEURAL SPACES: Unremarkable. No consolidation or edema. No pneumothorax. No effusion. HEART: Unremarkable. Cardiac silhouette not enlarged. MEDIASTINUM: Central airways and mediastinal contour are unremarkable. BONES/JOINTS: Unremarkable. No acute fracture. SOFT TISSUES: Unremarkable. RAD/Chest 1 View (Portable) IMPRESSION: No radiographic evidence of acute cardiopulmonary disease. Electronically Signed: Manuel Her MD at 23:15 EST ,
[2024-02-02 22:34] LABS: Absolute Lymphocyte Count 0.88 X10^3/uL (0.83-4.51); Absolute Neutrophil Count 4.1 X10^3/uL (2.0-7.7); Basophil# 0.01 X10^3/uL; Basophil% 0.2 % (0-1); Eosinophil# 0.22 X10^3/uL; Hematocrit 24.2 % (40-54); Hemoglobin 7.5 g/dL (13.0-16.5); Lymphocyte # 0.88 X10^3/ul (0.83-4.51); Lymphocyte % 15.8 % (19-41); Mean Corpuscular Hgb 31.3 pg (27.0-32.0); Mean Corpuscular Volume 100.8 fL (80-94); Mean Platelet Vol. 10.7 fl (6.2-12.0); Monocyte# 0.38 X10^3/uL; Monocyte% 6.8 % (0-10); NRBC Flagged by Analyzer 0 % (0-5); Neutrophil # 4.05 X10^3/uL (2.7-7.7); Neutrophil % 72.8 % (47-70); Platelet Count 115 K/mm3 (150-450); RBC Distribution Width SD 54.6 fl (35.1-43.9); White Blood Count 5.6 K/mm3 (4.4-11.0)
[2024-02-02 23:07] VITALS: BP 139/46; PULSE 92; RESP 24; O2SAT 100
[2024-02-02 23:09] VITALS: BP 148/132; PULSE 96; RESP 22; TEMP 36.5; O2SAT 99
[2024-02-02 23:10] LABS: Anion Gap 6 (5-15); BUN 62 mg/dL (7-18); BUN/Creat Ratio 26.4 RATIO (10-20); Calcium,Total 8.9 mg/dL (8.5-10.1); Chloride 112 mmol/L (98-107); Creatinine, Serum 2.35 mg/dL (0.70-1.30); EST Glomerular Filtration Rate 28 mL/min (>60); Est Glom Filt Rate - Afr Amer 34 mL/min (>60); Estimated Creatinine Clearance 23.21 ml/min; Glucose 248 mg/dL (74-106); Potassium 4.7 mmol/L (3.5-5.1); Sodium Level 145 mmol/L (136-145); Troponin-I HS (w/2H Reflex) 28 pg/mL (3.0-78.0)
[2024-02-02 23:33] LABS: BNP,B-Type NATRIURETIC PEPTIDE 188.6 pg/mL (0-100)
--- NOTE | 2024-02-02 23:49 | PCM.HP.STD ---
[facility] - General General Date of Admission: 02/03/24 Date of Service: 02/02/24 Chief Complaint: SOB, Cough and Wheezing. HPI Narrative BEULAH BRIGHT, is a 83 M with a past medical history of essential hypertension, hyperlipidemia; on atorvastatin, hypothyroidism; on Liothyronine, obesity; with BMI of 32.7 this admission, DM-2; of unknown control on jardiance and glimepiride, former history of tobacco abuse; with subsequent COPD, chronic hypoxic respiratory failure on 2-4L NC, CAD; s/p NSTEMI and LHC (2022) on BASA, mild LVH, chronic diastolic CHF; with preserved LVEF on torsemide, history of nonrheumatic aortic stenosis, history of carotid artery stenosis, history of TIA, history of syncope, history of cataract; s/p extraction, GERD; on Protonix and sucralfate, CKD; stage IIIb with baseline creatinine of ~2.3 mg/dL and eGFR of 28 mL/min, chronic macrocytic anemia plus KRISTY with baseline hemoglobin of ~8 g/dL, history of polyps in sigmoid colon with GI bleed requiring 3 units of PRBC's (December 10, 2023) and history of GI bleed; s/p EGD with cauterization of gastric ulcer by Dr. Joy of gastroenterology during recent admission here from December 26, 2023 to December 28, 2023 with patient requiring transfusion of 1 unit of PRBC's and then was apparently restarted on BASA in addition to Protonix and carafate who re-presents to [facility] ER complaining of SOB, cough and wheezing. Mr. Bright reports his acute symptoms began approximately 2-3 days prior to admission with the gradual-onset of MENG that progressed to SOB at rest. He also admits to a frequent but non productive cough. He states he has had similar episodes in the past associated with his previous AE COPD. 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 He is concerned his BASA is causing his repeated GI bleeds and he is now reluctant to take it anymore. He also denies associated fever, chills, nausea, vomiting, diarrhea, constipation, headache or paresthesias but he does admit to fatigue and nonproductive cough. In the ER he was diagnosed with clinical evidence of AE COPD in the setting of known Chronic Hypoxic Respiratory Failure complicated by worsening anemia with hemoglobin of 7.5 g/dL present on admission in the setting of two recent admissions for GI bleed likely due to Adverse Drug Reaction to BASA with stool Hemoccult done in ER negative this admission and he was then admitted to the PCU for ongoing care for a stay that is expected to extend beyond 2 midnights. FOR[facility]LY [facility] Medical History (Updated 02/03/24 @ 08:[address] Irwin Landa, DO) Obesity (BMI 30.0-34.9) Anemia Upper GI bleed History of valvular heart disease Acute on chronic anemia Acute dyspnea Acute on chronic renal insufficiency Acute on chronic anemia Symptomatic anemia Abnormal ECG Elevated troponin Shortness of breath Acute upper gastrointestinal bleeding Essential hypertension Renal insufficiency Non-ST elevation (NSTEMI) myocardial infarction COPD (chronic obstructive pulmonary disease) Loss of hearing No natural teeth Wears glasses Poor historian Thyroid disease Low iron High cholesterol Syncope History of GI bleed Shortness of breath on exertion History of echocardiogram Cardiology follow-up encounter Symptomatic anemia Diabetes Kidney disease Former smoker On home oxygen therapy TIA (transient ischemic attack) Myocardial infarct Hypertension Diastolic CHF Acute and chronic respiratory failure with hypoxia History of CAD (coronary artery disease) Nonrheumatic aortic (valve) stenosis Mild left ventricular hypertrophy History of left heart catheterization (LHC) (~03/15/22) Atherosclerotic heart disease of [place] coronary artery without angina pectoris Aortic valve stenosis, acquired CAD (coronary artery disease) COPD (chronic obstructive pulmonary disease) Polyarthralgia Diabetes mellitus, type 2 Former tobacco use Obesity Hypothyroidism HLD (hyperlipidemia) HTN (hypertension) Chronic respiratory failure with hypoxia Home Medications ?Medication ?Instructions ?Recorded ?Last Taken ?Type atorvastatin 80 mg tablet 80 mg PO DAILY CHOLESTEROL 05/02/21 12/05/23 History cholecalciferol (vitamin D3) 25 25 mcg PO DAILY vitamin 05/02/21 12/06/23 History mcg (1,000 unit) capsule ipratropium 0.5 mg-albuterol 3 mg 3 ml inhalation 4X/DAY PRN sob 05/02/21 11/18/23 History (2.5 mg base)/3 mL nebulization soln liothyronine 25 mcg tablet 25 mcg PO DAILY THYROID 05/02/21 12/06/23 History tiotropium bromide 18 mcg capsule 18 mcg inhalation DAILY SOB 05/02/21 11/17/23 History with inhalation device (Spiriva with HandiHaler) vitamins A,C,A-cuwd-lldfgp 4,296 1 cap PO BID vitamin 12/13/21 12/06/23 History mcg-226 mg-90 mg capsule (PreserVision AREDS) glimepiride 2 mg tablet 2 mg PO DAILY DM #3 tabs 03/09/23 12/06/23 Rx empagliflozin 10 mg tablet 10 mg PO DAILY heart failure 30 04/26/23 12/06/23 Rx (Jardiance) days #30 tabs lisinopril 10 mg tablet 10 mg PO DAILY HTN 06/27/23 12/06/23 History metoprolol succinate 25 mg 25 mg PO DAILY heart 06/27/23 12/05/23 History tablet,extended release 24 hr pantoprazole 40 mg tablet,delayed 40 mg PO DAILY stomach 06/27/23 12/06/23 History release (Protonix) ferrous sulfate 325 mg (65 mg 325 mg PO BID supplement 11/14/23 12/06/23 History iron) tablet (FeroSul) aspirin 81 mg tablet,delayed 81 mg PO DAILY heart health 11/18/23 12/06/23 History release (Adult Aspirin Regimen) sucralfate 1 gram tablet (Carafate) 1 g PO TID #90 tabs 12/28/23 Unknown Rx prednisone 20 mg tablet 40 mg (2 x 20 mg) PO DAILY #8 01/10/24 Unknown Rx TABLETS torsemide 5 mg tablet 5 mg PO DAILY water pill 01/29/24 Unknown History furosemide 40 mg tablet 40 mg PO DAILY water pill 02/02/24 Unknown History Allergy/AdvReac Type Severity Reaction Status Date / Time aliskiren (From [place]) Allergy Intermediate Other Verified 02/02/24 22:11 valsartan (From [place]) Allergy Intermediate Other Verified 02/02/24 22:11 codeine AdvReac Upset Verified 02/02/24 22:11 Stomach Family History Mother CVA (cerebral vascular accident) Heart disease Myocardial infarction Hx of CABG Hypertension Father CVA (cerebral vascular accident) Heart disease Surgical History S/P cataract extraction Social History household members: none housing: house Smoking Status: Former smoker how long ago did patient quit smoking: Quit 2011, prior 1 ppd since teen. alcohol intake: former year quit: 2010 substance use type: does not use ROS ROS Narrative Review of Systems: Constitutional: Patient admits to fatigue but he denies fever or chills. Eyes: Patient admits to slowly losing his color vision but he denies other visual disturbances. ENT: Patient denies runny nose, sore throat or ear pain. Resp: Patient admits to MENG that progressed to SOB at rest with a nonproductive cough. CV: Patient denies chest pain, palpitations or heart racing. GI: Patient denies nausea, vomiting, diarrhea, constipation or gross blood in stools. : Patient denies dysuria or hematuria. MSK: Patient denies arthralgias or myalgias. Skin: Patient denies rash, abscess or jaundice but he does have a mildly pale appearance. Psych: Patient denies symptoms of uncontrolled depression or anxiety. Neuro: Patient denies headache, paresthesias or focal neurologic deficits. Allergy: Patient denies lip swelling, tongue swelling or urticaria. Hematology: Patient does admit to bleeding requiring transfusions on both recent hospitalizations as noted above in HPI. Endocrinology: Patient denies polyuria, polydipsia or polyphagia. 14 point ROS otherwise negative except for positives noted above in HPI. Vital Signs Vital Signs Vital Signs: 02/02/24 22:07 02/02/24 22:09 02/02/24 22:12 Temperature 98.3 F 98.3 F Temperature Source Oral Oral Pulse Rate 86 86 Respiratory Rate 23 H 22 H Respiratory Effort Respiratory Pattern Blood Pressure 143/116 H 143/116 H Blood Pressure Mean 125 125 Pulse Ox 100 100 100 Oxygen Delivery Method Nasal Cannula Nasal Cannula Nasal Cannula Oxygen Flow Rate (L/min) 4 4 4 02/02/24 22:26 02/02/24 23:07 02/02/24 23:09 Temperature 97.7 F L Temperature Source Oral Pulse Rate 92 96 Respiratory Rate 24 H 22 H Respiratory Effort Short of Breath Labored Respiratory Pattern Tachypnea Blood Pressure 139/46 H 148/132 H Blood Pressure Mean 77 137 Pulse Ox 100 99 Oxygen Delivery Method Nasal Cannula Nasal Cannula Nasal Cannula Oxygen Flow Rate (L/min) 4 4 4 Weight Weight: 190 lb 11.198 oz Body Mass Index (BMI) 32.7 Physical Exam Const alert, oriented x3 and no apparent distress Constitutional Narrative: Patient is obese with a chronically ill and mildly pale appearance. General Appearance: cooperative HEENT normocephalic, head/scalp atraumatic, hearing grossly normal bilaterally and moist oral mucous membranes Eyes PERRL and EOMs intact bilaterally Neck no lymphadenopathy and supple Resp Resp Narrative: Diminished breath sounds throughout with scattered wheezing and rhonci. Auscultation: rhonchi and wheezes Cardio regular rate and regular rhythm GI normal to inspection, nondistended, normoactive bowel sounds, soft to palpation, non-tender and non-distended Extremity normal to inspection, full ROM and no clubbing, cyanosis or edema Skin Skin Narrative: Patient is pale in appearance but he has no evidence of rash, abscess or jaundice. Neuro oriented x3, CN's II-XII intact bilaterally, moves all extremities and no focal motor deficits Sensorium / Orientation: awake, alert, oriented to person, oriented to place and oriented to time Speech: speech normal Psych affect normal Results Medical Records Data Attestation: I reviewed the patient's medical records Lab / Micro Data Attestation: I reviewed the patient's lab results. 02/03/24 04:50 02/03/24 04:50 Labs: Laboratory Results - last 24 hr 02/02/24 22:07: WBC 5.6, RBC 2.40 L, Hgb 7.5 L, Hct 24.2 L, MCV 100.8 H, MCH 31.3, MCHC 31.0 L, RDW Std Deviation 54.6 H, RDW Coeff of John 15.0 H, Plt Count 115 L, MPV 10.7, Immature Gran % (Auto) 0.400, Neut % (Auto) 72.8 H, Lymph % (Auto) 15.8 L, [place] % (Auto) 6.8, Eos % (Auto) 4.0, Baso % (Auto) 0.2, Absolute Neuts (auto) 4.1, Absolute Lymphs (auto) 0.88, Nucleated RBC % 0, Sodium 145, Potassium 4.7, Chloride 112 H, Carbon Dioxide 27.0, Anion Gap 6, BUN 62 H, Creatinine 2.35 H, Estim Creat Clear Calc 23.21, Est GFR (MDRD) Af Amer 34 L, Est GFR (MDRD) Non-Af 28 L, BUN/Creatinine Ratio 26.4 H, Glucose 248 H, Calcium 8.9, Troponin I High Sens 28, B-Natriuretic Peptide 188.6 H Micro: Microbiology 02/02/24 23:15 Stool Stool Occult Blood ([facility]) - Final Imaging Radiology Impression Chest X-Ray 02/02/24 22:30 IMPRESSION: No radiographic evidence of acute cardiopulmonary disease. Electronically Signed: Manuel Her MD at 23:15 EST , Assessment & Plan Assessment/Plan (1) COPD with acute exacerbation: (2) Chronic respiratory failure with hypoxia: (3) Anemia: QUALIFIERS: Anemia type: unspecified type Qualified Code(s): D64.9 - Anemia, unspecified (4) History of gastric ulcer: (5) Obesity (BMI 30.0-34.9): PLAN: Plan 1. AE COPD in the setting of known Chronic Hypoxic Respiratory Failure - Admit to PCU. Continue IV Solumedrol begun in the ER and add IV Doxycycline. Give nebulizers prn and continue scheduled inhalers as previous. Give Tylenol prn pain or fever. 2. Chronic macrocytic and iron deficiency Anemia with hemoglobin of 7.5 g/dL present on admission in the setting of two recent admissions for GI bleed likely due to Adverse Drug Reaction to BASA with stool Hemoccult done in ER negative this admission complicating #1 in the setting of known Gastric Ulcer and GERD; on Protonix and sucralfate - Check hemogram daily to ensure continued stability. If patient bleeds again BASA should likely be stopped in an effort to avoid further bleeding episodes. Check B12 and Folate levels with macrocytosis to evaluate for possible deficiency. Check iron studies and ferritin to see if oral iron supplementation is adequate with ongoing anemia. 3. Obesity; with BMI of 32.7 this admission compounding #1 & #2 - Weight loss will be recommended. Check TSH. This complicates his case and may hamper recovery. 4. Essential hypertension - Resume home regimen plus give IV Hydralazine prn for systolic blood pressure > 160 mmHg. 5. Hyperlipidemia; on atorvastatin - Continue statin as previous. 6. Hypothyroidism; on Liothyronine - Maintain current thyroid hormone supplement and check TSH. 7. DM-2; of unknown control on jardiance and glimepiride - Continue jardiance and glimepiride for now with anticipated hyperglycemia from steroid administration. FSBS q. AC/HS plus SSI. Check HgbA1c to objectively assess quality of diabetic control. 8. CAD; s/p NSTEMI and LHC (2022) on BASA - Continue current treatment for now unless patient has another bleeding episode. 9. Chronic diastolic CHF; with preserved LVEF on torsemide plus mild concentric LVH - Resume Torsemide as previous. 10. History of nonrheumatic aortic stenosis - Noted. 11. History of carotid artery stenosis - Noted. 12. History of TIA - noted. 13. History of syncope - Noted. 14. History of cataract; s/p extraction - Noted. 15. CKD; stage IIIb with baseline creatinine of ~2.3 mg/dL and eGFR of 28 mL/min - Noted. Check renal indices daily to ensure continued stability. 16. History of polyps in sigmoid colon with GI bleed requiring 3 units of PRBC's (December 10, 2023) - Noted. 17. History of GI bleed; s/p EGD with cauterization of gastric ulcer by Dr. Joy of gastroenterology during recent admission here from December 26, 2023 to December 28, 2023 with patient requiring transfusion of 1 unit of PRBC's and then was apparently restarted on BASA in addition to Protonix and carafate - Noted. 18. DVT prophylaxis - SCD's only with 2 recent GI bleeds requiring transfusion. Total time: Approximately (but not less than) 75 minutes. Charges/Coding Visit Charges Inpatient E&M: 71826 Init Hosp L3
[2024-02-03] VITALS (11 sets, daily range): BP systolic 108–139; BP diastolic 46–92; PULSE 64–100; RESP 17–27; TEMP 36.5–37.1; O2SAT 98–100; BMI 30.8
[2024-02-03 00:16] LABS: Reflex Troponin-HS? (from REC) Y
--- NOTE | 2024-02-03 00:36 | ED.RN ---
Per pt request, attempted to contact daughter via phone call. Reached voicebox, this RN left A voicemail. Pt notified of this.
[2024-02-03 01:47] LABS: Ferritin 25 ng/mL (26-388); Iron 61 ug/dL (65-175); Iron Binding Capacity,Total 288 ug/dL (250-450); PERCENT IRON SATURATION 21.2 % (15.0-55.0); Troponin-I HS 37 pg/mL (3.0-78.0)
[2024-02-03] MEDS: Doxycycline 100 MG in Dextrose 5%-Water (250mL Bag) 250 ML 250 MG IV ×2 (01:59→10:13)
[2024-02-03 06:17] LABS: Absolute Lymphocyte Count 0.35 X10^3/uL (0.83-4.51); Absolute Neutrophil Count 4.4 X10^3/uL (2.0-7.7); Basophil# 0.01 X10^3/uL; Basophil% 0.2 % (0-1); Eosinophil# 0.02 X10^3/uL; Eosinophils% 0.4 % (0-5); Hematocrit 24.5 % (40-54); Hemoglobin 7.7 g/dL (13.0-16.5); Lymphocyte # 0.35 X10^3/ul (0.83-4.51); Lymphocyte % 7.2 % (19-41); Mean Corp Hgb Conc 31.4 g/dL (32-36); Mean Corpuscular Hgb 31.8 pg (27.0-32.0); Mean Corpuscular Volume 101.2 fL (80-94); Mean Platelet Vol. 11.3 fl (6.2-12.0); Monocyte# 0.04 X10^3/uL; Monocyte% 0.8 % (0-10); NRBC Flagged by Analyzer 0 % (0-5); Neutrophil # 4.41 X10^3/uL (2.7-7.7); Neutrophil % 90.8 % (47-70); POSITIVE DIFFERENTIAL YES; Platelet Count 105 K/mm3 (150-450); RBC Distribution Width CV 14.8 % (11.6-14.6); RBC Distribution Width SD 53.8 fl (35.1-43.9); Red Blood Count 2.42 M/mm3 (4.6-6.2); White Blood Count 4.9 K/mm3 (4.4-11.0)
[2024-02-03] MEDS: Sucralfate 1 GM Tablet PO ×3 (06:37→16:01)
[2024-02-03] MEDS: Insulin Lispro 100 UNIT/ML INSULN.PEN SC ×4 (06:38→21:33)
[2024-02-03] MEDS: Liothyronine 5 MCG Tablet 25 MCG PO (06:38)
[2024-02-03 06:46] LABS: ALB/GLOB Ratio 0.9 RATIO (0.9-2.4); AST(SGOT) 10 U/L (15-37); Alanine Aminotransfer ALT/SGPT 20 U/L (16-61); Albumin, Serum 3.1 g/dL (3.2-5.0); Alkaline Phosphatase 64 U/L (45-117); Anion Gap 7 (5-15); BUN 56 mg/dL (7-18); BUN/Creat Ratio 24.9 RATIO (10-20); Calcium,Total 8.9 mg/dL (8.5-10.1); Chloride 110 mmol/L (98-107); Creatinine, Serum 2.25 mg/dL (0.70-1.30); EST Glomerular Filtration Rate 30 mL/min (>60); Est Glom Filt Rate - Afr Amer 36 mL/min (>60); Estimated Creatinine Clearance 24.38 ml/min; Globulin 3.5 g/dL (2.2-4.2); Glucose 229 mg/dL (74-106); Phosphorus 2.6 mg/dL (2.5-4.9); Potassium 5.4 mmol/L (3.5-5.1); Protein, Total 6.6 g/dL (6.4-8.2); Sodium Level 142 mmol/L (136-145)
[2024-02-03 06:51] LABS: Bedside Glucose 215 mg/dL (74-106)
--- NOTE | 2024-02-03 07:16 | PCM.PN.HOSP ---
Objective Data Objective Data Vital Signs: Vital Signs Temp Pulse Resp BP Pulse Ox O2 Del Method O2 Flow Rate 97.8 F 86 24 H 139/52 H 100 Nasal Cannula 3 02/03/24 03:30 02/03/24 03:30 02/03/24 03:30 02/03/24 03:30 02/03/24 03:30 02/03/24 03:30 02/03/24 03:30 Oxygen Flow Rate (L/min) 3 Oxygen Delivery Method Nasal Cannula Weight: 185 lb 6.54 oz Body Mass Index (BMI) 30.8 Intake & Output: Intake and Output for Last 24 Hours 02/01/24 02/02/24 02/03/24 23:59 23:59 23:59 Intake Total 260 / 260 Output Total 275 / 275 Balance -15 / -15 Lab / Micro Data 02/03/24 04:50 02/03/24 04:50 Labs: Laboratory Results - last 24 hr 02/02/24 22:07: WBC 5.6, RBC 2.40 L, Hgb 7.5 L, Hct 24.2 L, MCV 100.8 H, MCH 31.3, MCHC 31.0 L, RDW Std Deviation 54.6 H, RDW Coeff of John 15.0 H, Plt Count 115 L, MPV 10.7, Immature Gran % (Auto) 0.400, Neut % (Auto) 72.8 H, Lymph % (Auto) 15.8 L, [place] % (Auto) 6.8, Eos % (Auto) 4.0, Baso % (Auto) 0.2, Absolute Neuts (auto) 4.1, Absolute Lymphs (auto) 0.88, Nucleated RBC % 0, Sodium 145, Potassium 4.7, Chloride 112 H, Carbon Dioxide 27.0, Anion Gap 6, BUN 62 H, Creatinine 2.35 H, Estim Creat Clear Calc 23.21, Est GFR (MDRD) Af Amer 34 L, Est GFR (MDRD) Non-Af 28 L, BUN/Creatinine Ratio 26.4 H, Glucose 248 H, Calcium 8.9, Troponin I High Sens 28, B-Natriuretic Peptide 188.6 H 02/02/24 23:56: Blood Type A NEGATIVE, Antibody Screen NEGATIVE 02/03/24 01:08: Iron 61 L, TIBC 288, Iron Saturation 21.2, Ferritin 25 L, Troponin I High Sens 37, Folate 12.80, TSH 4.220 H 02/03/24 04:50: WBC 4.9, RBC 2.42 L, Hgb 7.7 L, Hct 24.5 L, MCV 101.2 H, MCH 31.8, MCHC 31.4 L, RDW Std Deviation 53.8 H, RDW Coeff of John 14.8 H, Plt Count 105 L, MPV 11.3, Immature Gran % (Auto) 0.600, Neut % (Auto) 90.8 H, Lymph % (Auto) 7.2 L, [place] % (Auto) 0.8, Eos % (Auto) 0.4, Baso % (Auto) 0.2, Absolute Neuts (auto) 4.4, Absolute Lymphs (auto) 0.35 L, Nucleated RBC % 0, Sodium 142, Potassium 5.4 H, Chloride 110 H, Carbon Dioxide 24.0, Anion Gap 7, BUN 56 H, Creatinine 2.25 H, Estim Creat Clear Calc 24.38, Est GFR (MDRD) Af Amer 36 L, Est GFR (MDRD) Non-Af 30 L, BUN/Creatinine Ratio 24.9 H, Glucose 229 H, Calcium 8.9, Phosphorus 2.6, Magnesium 2.0, Total Bilirubin 0.50, AST 10 L, ALT 20, Alkaline Phosphatase 64, Total Protein 6.6, Albumin 3.1 L, Globulin 3.5, Albumin/Globulin Ratio 0.9 02/03/24 06:34: POC Glucose 215 H Micro: Microbiology 02/02/24 22:20 Mucosa - Nose SARS-CoV-2, Influenza & RSV (PCR) - Final 02/02/24 23:15 Stool Stool Occult Blood ([facility]) - Final Radiography Diagnostic Testing: Radiology Impression Chest X-Ray 02/02/24 22:30 IMPRESSION: No radiographic evidence of acute cardiopulmonary disease. Electronically Signed: Manuel Her MD at 23:15 EST , Physical Exam Narrative Seen and examined. Patient was admitted with worsening shortness of breath. Denies cough, sputum production, fever or chills. History of smoking started at the age of 4, 1.5 pack/day decreased to 1 pack/day at the time of quit in 2010. Has COPD/emphysema. 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 Obesity grade 1 BMI 30.9 kg/m? HEENT: Atraumatic, PERRLA, EOMI, Normocephalic Oral: No Gingival or Mucosal Lesions/ Ulcerations Neck: Supple, No JVD, Negative Carotid Bruits Chest wall/Lungs: Air entry severely diminished bilaterally. Bronchial breathing. Bilateral wheezing and rhonchi. Pauses during conversation after each sentence Cardiovascular: Regular rate, Regular Rhythm, Normal S1, Normal S2, systolic murmur LLSB Abdomen: Bowel Sounds Present, Soft, Non Tender, Non-Distended : No dysuria. No renal angle tenderness. No suprapubic tenderness. Extremities: 1+ pitting mild bilateral edema, Capillary Refill Less than 3 Seconds Skin: No rashes, No breakdown Musculoskeletal: No Tenderness to Palpation of Joints or Extremities. ROM full and adequate. Neurological: Cranial nerves II-XII grossly intact, DTR 2+/4. No acute focal neurological deficit. Psych/Mental Status: Normal Affect, Appropriate. Assessment & Plan Assessment/Plan (1) Upper GI bleed: (2) Acute on chronic anemia: PLAN: Plan 83-year-old gentleman with history of COPD on 3 L of home oxygen was admitted with worsening SOB/dyspnea at rest for last few days. No chest pain cough. Denies history of heart failure. Patient came to ED last month for COPD exacerbation and improved with the steroid, was not admitted. No fever nausea vomiting or diarrhea. 1. COPD exacerbation with chronic hypoxic respiratory failure: Patient is being managed on scheduled bronchodilator, IV Solu-Medrol, Mucinex, incentive spirometry and Pep. The patient is on 2 L of oxygen at this time, pulse ox being monitored. Triple PCR for SARS-CoV-2, flu and RSV are negative #2. Acute severe macrocytic anemia possible from CKD/chronic disease: Patient was discharged in December 2023 after acute blood loss anemia from gastric ulcer after PRBC transfusion and hemoglobin was 9.4. Is admitted with 7.5 g and today 7.7 g. MCV 101.2 Fahrenheit. Platelet count low 105,000. EGD on 12/27/2023 showed oozing gastric ulcer, normal esophagus and normal D2. 02/02: Hemoglobin 7.7. Stool for occult blood negative. Iron study shows serum iron 61 low, TIBC normal, iron saturation 21% and ferritin low 25. IV iron infusion ordered #3. Type 2 diabetes mellitus:-Accu-Chek before meals and at bedtime with Humalog sliding scale coverage and hypoglycemia protocol. 02/02: Glucose 215 -270. Lantus subcutaneous daily ordered 4. coronary artery disease-Home medications continued complicates care, management, recovery, and prognosis 5. 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 Baseline creatinine about 2.35. Complicates care, management, recovery, and prognosis 6. Chronic gastric ulcer-continue Protonix, and Carafate Charges/Coding Visit Charges Inpatient E&M: 88111 Subs Hosp L2
[2024-02-03] MEDS: Ipratropium 0.5 MG/2.5 ML SOLUTION INHALATION ×3 (07:24→20:53)
[2024-02-03 08:12] LABS: Hemoglobin A1c 5.7 % (3.8-5.6)
[2024-02-03] MEDS: Metoprolol(XL)Succ 25 MG Tablet PO (09:16)
[2024-02-03] MEDS: Cholecalciferol (VIT D3) 25 MCG TABLET (1,000 UNITS) PO (09:16)
[2024-02-03] MEDS: Empagliflozin 10 MG Tablet PO (09:16)
[2024-02-03] MEDS: Ferrous Sulfate 325 MG Tablet PO ×2 (09:17→16:01)
[2024-02-03] MEDS: Multivitamin (Healthy Eyes) Capsule 1 CAP PO ×2 (09:17→21:32)
[2024-02-03] MEDS: Pantoprazole Sodium 40 MG Tablet PO (09:17)
[2024-02-03] MEDS: Furosemide 40 MG Tablet PO (09:17)
[2024-02-03] MEDS: Lisinopril 10 MG Tablet PO (09:18)
[2024-02-03] MEDS: Glimepiride 2 MG Tablet PO (09:18)
[2024-02-03] MEDS: MethylPREDNISolone 125 MG/2 ML Vial 60 MG IV ×2 (09:19→21:32)
[2024-02-03 11:54] LABS: Bedside Glucose 270 mg/dL (74-106)
[2024-02-03] MEDS: Sodium Ferric Gluconat/Sucrose 250 MG in 0.9% Normal Saline (250mL Bag) 250 ML 135 MG IV (14:12)
[2024-02-03] MEDS: Insulin Glargine-YFGN 100 UNIT/ML Pen 8 UNIT SC (16:38)
[2024-02-03 17:16] LABS: Bedside Glucose 201 mg/dL (74-106)
[2024-02-03] MEDS: Atorvastatin Calcium 80 MG Tablet PO (21:32)
[2024-02-03 22:05] LABS: Bedside Glucose 192 mg/dL (74-106)
[2024-02-04] VITALS (10 sets, daily range): BP systolic 124–149; BP diastolic 51–70; PULSE 72–95; RESP 16–22; TEMP 36.4–36.6; O2SAT 94–100; BMI 30.8
[2024-02-04] MEDS: Ipratropium/Albuterol Sulfate 3 ML AMPUL.NEB INHALATION (01:36)
[2024-02-04] MEDS: Sucralfate 1 GM Tablet PO ×3 (06:13→16:09)
[2024-02-04] MEDS: Liothyronine 5 MCG Tablet 25 MCG PO (06:13)
[2024-02-04] MEDS: Insulin Lispro 100 UNIT/ML INSULN.PEN SC ×3 (06:13→16:08)
[2024-02-04 06:29] LABS: Absolute Lymphocyte Count 0.45 X10^3/uL (0.83-4.51); Absolute Neutrophil Count 7.9 X10^3/uL (2.0-7.7); Basophil# 0.01 X10^3/uL; Basophil% 0.1 % (0-1); Hematocrit 23.6 % (40-54); Hemoglobin 7.5 g/dL (13.0-16.5); Lymphocyte # 0.45 X10^3/ul (0.83-4.51); Lymphocyte % 5.3 % (19-41); Mean Corp Hgb Conc 31.8 g/dL (32-36); Mean Corpuscular Hgb 31.3 pg (27.0-32.0); Mean Corpuscular Volume 98.3 fL (80-94); Monocyte# 0.16 X10^3/uL; Monocyte% 1.9 % (0-10); NRBC Flagged by Analyzer 0 % (0-5); Neutrophil # 7.85 X10^3/uL (2.7-7.7); Neutrophil % 92.1 % (47-70); POSITIVE DIFFERENTIAL YES; Platelet Count 129 K/mm3 (150-450); RBC Distribution Width CV 14.9 % (11.6-14.6); White Blood Count 8.5 K/mm3 (4.4-11.0)
[2024-02-04 06:43] LABS: Bedside Glucose 196 mg/dL (74-106)
[2024-02-04 07:00] LABS: Anion Gap 7 (5-15); BUN 73 mg/dL (7-18); BUN/Creat Ratio 30.5 RATIO (10-20); Calcium,Total 9.4 mg/dL (8.5-10.1); Chloride 108 mmol/L (98-107); Creatinine, Serum 2.39 mg/dL (0.70-1.30); EST Glomerular Filtration Rate 28 mL/min (>60); Est Glom Filt Rate - Afr Amer 33 mL/min (>60); Estimated Creatinine Clearance 22.96 ml/min; Glucose 220 mg/dL (74-106); Potassium 5.2 mmol/L (3.5-5.1); Sodium Level 139 mmol/L (136-145)
[2024-02-04] MEDS: Ipratropium 0.5 MG/2.5 ML SOLUTION INHALATION ×2 (07:01→13:01)
[2024-02-04 08:07] LABS: Vitamin B12 661 pg/mL (211-911)
[2024-02-04] MEDS: Ferrous Sulfate 325 MG Tablet PO ×2 (09:37→17:30)
[2024-02-04] MEDS: Empagliflozin 10 MG Tablet PO (09:37)
[2024-02-04] MEDS: Glimepiride 2 MG Tablet PO (09:37)
[2024-02-04] MEDS: Multivitamin (Healthy Eyes) Capsule 1 CAP PO (09:37)
[2024-02-04] MEDS: Pantoprazole Sodium 40 MG Tablet PO (09:38)
[2024-02-04] MEDS: Furosemide 40 MG Tablet PO (09:38)
[2024-02-04] MEDS: MethylPREDNISolone 125 MG/2 ML Vial 60 MG IV (09:38)
[2024-02-04] MEDS: Metoprolol(XL)Succ 25 MG Tablet PO (09:39)
[2024-02-04] MEDS: Cholecalciferol (VIT D3) 25 MCG TABLET (1,000 UNITS) PO (09:40)
--- NOTE | 2024-02-04 10:45 | CASEMGMT ---
RN CM Face to Face with patient for initial transition planning/care coordination assessment. RN CM introduced self and role at [facility]. Patient lying in bed, alert and oriented. Patient willing to participate in assessment and is able to answer all questions appropriately. Care providers, pharmacy, and demographics verified. Strata: 3 PCP: Mary Specialists: [facility] Preferred Pharmacy: [facility] Insurance: [employer] [facility] Prescription Benefit: yes Living Will/HPOA: yes, daughter Katie Singletary LNOK: Daughter Living Arrangements: Patient lives alone in a mobile home with 8 steps and railing to enter the home. Patient states he is independent Transportation: daughter, friend DME/HHC: Patient has shower chair, raised toilet, cane, walker, wheelchair, nebulizer, pulse ox, glucometer, and home oxygen from [facility]. Patient has had [facility] HHC in the past. Patient has been to [facility] in the past. Patient is active with [facility]. Patient has referral and meeting with [facility] on 02/06/24. Patient wishes to discharge home with resumption of CCN. Patient states he has no further needs or concerns at this time. CM to follow for discharge planning needs that may arise. Disposition Plan: Patient to discharge home with CCN, family support, and follow-up plans in place. Tamara ALEMAN, RN, CM
--- NOTE | 2024-02-04 11:05 | PN.HOSP_ITS ---
Subjective Subjective Doing well, no issues overnight. Maintaining his oxygen saturations on his home 3 L. Will obtain a pulse ox with ambulation but Objective Data Objective Data Vital Signs: Vital Signs Temp Pulse Resp BP Pulse Ox O2 Del Method O2 Flow Rate 97.6 F L 81 18 125/53 H 100 Nasal Cannula 3 02/04/24 09:24 02/04/24 09:39 02/04/24 09:24 02/04/24 09:39 02/04/24 09:24 02/04/24 09:24 02/04/24 09:24 Oxygen Flow Rate (L/min) 3 Oxygen Delivery Method Nasal Cannula Weight: 185 lb 6.54 oz Body Mass Index (BMI) 30.8 Intake & Output: Intake and Output for Last 24 Hours 02/03/24 02/04/24 02/05/24 03:59 03:59 03:59 Intake Total 260 / 260 1250 / 1250 Output Total 1610 / 1610 500 / 500 Balance 260 / 260 -360 / -360 -500 / -500 Lab / Micro Data 02/04/24 05:47 02/04/24 05:47 Labs: Laboratory Results - last 24 hr 02/03/24 01:08: Vitamin B12 661 02/03/24 11:31: POC Glucose 270 H 02/03/24 16:33: POC Glucose 201 H 02/03/24 21:31: POC Glucose 192 H 02/04/24 05:47: WBC 8.5, RBC 2.40 L, Hgb 7.5 L, Hct 23.6 L, MCV 98.3 H, MCH 31.3, MCHC 31.8 L, RDW Std Deviation 53.0 H, RDW Coeff of John 14.9 H, Plt Count 129 L, MPV 11.0, Immature Gran % (Auto) 0.600, Neut % (Auto) 92.1 H, Lymph % (Auto) 5.3 L, [place] % (Auto) 1.9, Eos % (Auto) 0.0, Baso % (Auto) 0.1, Absolute Neuts (auto) 7.9 H, Absolute Lymphs (auto) 0.45 L, Nucleated RBC % 0, Sodium 139, Potassium 5.2 H, Chloride 108 H, Carbon Dioxide 24.0, Anion Gap 7, BUN 73 H , Creatinine 2.39 H, Estim Creat Clear Calc 22.96, Est GFR (MDRD) Af Amer 33 L, Est GFR (MDRD) Non-Af 28 L, BUN/Creatinine Ratio 30.5 H, Glucose 220 H, Calcium 9.4 02/04/24 06:11: POC Glucose 196 H Micro: Microbiology 02/02/24 22:20 Mucosa - Nose SARS-CoV-2, Influenza & RSV (PCR) - Final 02/02/24 23:15 Stool Stool Occult Blood (CLARY) - Final Physical Exam Narrative General: Alert, Oriented x3, Cooperative, No apparent distress HEENT: Atraumatic, PERRLA, EOMI, Normocephalic Oral: Moist Mucosa Neck: Supple, No JVD Lungs: Diminished, Normal air movement, No rhonchi, No wheeze, No rales Cardiovascular: Regular rate, Regular Rhythm, Normal S1, Normal S2, No murmurs Abdomen: Soft, Non Tender, Non-Distended, No Hepato-splenomegaly Extremities: No edema, Capillary Refill Less than 3 Seconds Skin: No rashes, No breakdown Musculoskeletal: No Tenderness to Palpation of Joints or Extremities Neurological: No focal neurological deficits, Motor Exam 5/5 strength throughout, Sensory exam intact to light touch and pain Psych/Mental Status: Normal Affect, Appropriate Assessment & Plan Assessment/Plan (1) COPD exacerbation: PLAN: Plan 1. Increase shortness of breath in the setting of chronic hypoxic respiratory failure requiring 3 L from COPD/chronic diastolic CHF/CKD 4 ?Respiratory panel is negative ? Continue with steroids and inhalers ? Continue with PPI ? Fecal occult is negative ? He is on his baseline oxygen, do an amatory pulse ox 2. Essential HTN/HLD/CAD ? Continue with his home blood pressure medications ? Continue with his home cholesterol medications ? Will monitor make adjustments as necessary 3. GERD with chronic anemia ? Continue with PPI ? Fecal occult is negative on this admission ? Ferritin is low so we will treat with another dose of IV iron his baseline hemoglobin is around 8-9 currently after his GI bleeds ? Will continue to monitor 4. DM2 ? Hold his home medications ? Sign scale insulin ? Accu-Cheks ACHS ? Will monitor make adjustments as necessary 5. Hypothyroidism ? Stable ? Continue with Synthroid DVT: SCDs Charges/Coding Visit Charges Inpatient E&M: 33929 Subs Hosp L2
[2024-02-04 11:14] LABS: Bedside Glucose 158 mg/dL (74-106)
[2024-02-04] MEDS: Sodium Ferric Gluconat/Sucrose 250 MG in 0.9% Normal Saline (250mL Bag) 250 ML 135 MG IV (12:20)
--- NOTE | 2024-02-04 15:45 | CHAPLAIN ---
Type of Pastoral Visit _x__ Initial Visit ___ Follow-up Visit ___ On-call Visit ___ General Patient Visit ___ Spiritual Assessment ___ Family Conference ___ Bereavement ___ Rapid Response ___ Code Blue ___ Other (describe below) Pastoral Care Referral From _x__ Patient ___ Family ___ Nurse ___ Physician ___ [place] Operator ___ Sisal Picker ___ Other (describe below) Sacrament/Intervention _x__ Active listening ___ Anointing ___ Protestant ___ Bereavement ___ Communion ___ Leigh exploration ___ ___ Life review ___ Prayer ___ Reconciliation ___ Sacrament of Sick _x__ Supportive presence ___ Wedding ___ Other (describe below) Pastoral Comments patient updated this cna caregiver on his health and recent circumstances of life; pt is given time and opportunity to express himself and his needs
[2024-02-04 16:11] LABS: Bedside Glucose 259 mg/dL (74-106)
--- NOTE | 2024-02-04 17:22 | DCINST_ITS ---
Discharge Instructions Diet Discharge Diet: Low fat / Low cholesterol DC O2, CPAP, BIPAP needs RN Home O2 Qualification: Home O2 Qualification: Is the patient on home oxygen Yes 02/04/24 14:26 Home O2 Qualification: AT REST 1-Pulse Ox at rest 100 02/04/24 14:26 1- Oxygen flow rate at rest 3 02/04/24 14:26 Home O2 Qualification: WITH AMBULATION 1- Pulse Ox with ambulation 94 02/04/24 14:26 1- Oxygen Flow Rate with 3 02/04/24 14:26 ambulation Additional Home O2 Discharge instructions: No Dressing / Incision Discharge Activity: Return to Normal Activity Dressing / Incision Call your doctor if you observe: Fever of 101 or Higher, Shortness of breath, Dizziness, Fainting spells, Swelling in the ankles, Chest pain and Increased p alpitations (irregular heartbeat) Follow Up Care Test Results: Test results from this visit will be discussed in further detail at your follow- up appointment, if applicable. Discharge Plan Admission Admit Date/Time: 02/03/24 00:26 Attending Provider: John Anders Primary Care Provider: Emeka Hernandez Consulting Providers: Irwin Landa; Fred Ramos Instructions Additional Instructions / Restrictions: Follow-up with your PCP in 3 to 5 days to monitor your hemoglobin and obtain a CBC. Discharge Orders/Prescriptions Prescriptions: New prednisone 10 mg tablet 10 mg PO DAILY Qty: 32 0RF Rx Instructions: Take 4 tablets daily for 3 days then 3 tablets daily for 3 days then 2 tablets daily for 3 days then 1 tablet daily for 3 days then half tablet daily for 4 days Continued atorvastatin 80 mg tablet 80 mg PO DAILY ipratropium-albuterol 0.5 mg-3 mg(2.5 mg base)/3 mL solution for nebulization 3 ml inhalation 4X/DAY PRN (Reason: sob) Patient Comments: inhale contents of 1 vial ( 3 milliliters ) in nebulizer by mouth... (REFER TO PRESCRIPTION NOTES). liothyronine 25 mcg tablet 25 mcg PO DAILY Patient Comments: TAKE 1 TABLET BY MOUTH ONCE DAILY FOR 90 DAYS tiotropium bromide [Spiriva with HandiHaler] 18 mcg capsule, w/inhalation device 18 mcg INHALATION DAILY Patient Comments: INHALE THE CONTENTS OF 1 CAPSULE TWICE EACH TIME VIA HANDIHALER ONCE DAILY cholecalciferol (vitamin D3) 25 mcg (1,000 unit) Capsule 25 mcg PO DAILY PreserVision AREDS [id number] Capsule 1 cap PO BID Jardiance 10 mg Tablet 10 mg PO DAILY 30 Days Qty: 30 0RF glimepiride 2 mg tablet 2 mg PO DAILY Qty: 3 0RF Patient Comments: take 1 tablet by mouth once daily WITH FIRST MEAL OF THE DAY Rx Instructions: Hold if glucose less than 130 mg/dl sucralfate [Carafate] 1 gram tablet 1 g PO TID Qty: 90 0RF lisinopril 10 mg tablet 10 mg PO DAILY pantoprazole [Protonix] 40 mg tablet,delayed release (DR/EC) 40 mg PO DAILY metoprolol succinate 25 mg tablet extended release 24 hr 25 mg PO DAILY ferrous sulfate [FeroSul] 325 mg (65 mg iron) tablet 325 mg PO BID aspirin [Adult Aspirin Regimen] 81 mg tablet,delayed release (DR/EC) 81 mg PO DAILY torsemide 5 mg tablet 5 mg PO DAILY furosemide 40 mg tablet 40 mg PO DAILY Discontinued prednisone 20 mg tablet 40 mg PO DAILY Qty: 8 0RF Rx Instructions: Next dose 01/11/2024 Referrals / Follow Up: Emeka Hernandez MD [Primary Care Provider] - Within 1 Week Disposition Disposition (needs filled in before D/C Order can be placed): Home, Self Care
--- NOTE | 2024-02-04 17:28 | DS.PCM_ITS ---
Providers Date of Admission: 02/03/24 Primary Care Physician: Dr. Emeka Hernandez MD Reason For Visit: AE COPD Diagnosis Discharge Diagnosis (1) COPD exacerbation: Status: Chronic Code(s): J44.1 - Chronic obstructive pulmonary disease with (acute) exacerbation Medications at Discharge Home Medications atorvastatin 80 mg tablet 80 mg PO DAILY CHOLESTEROL 05/02/21 cholecalciferol (vitamin D3) 25 mcg (1,000 unit) capsule 25 mcg PO DAILY vitamin 05/02/21 ipratropium 0.5 mg-albuterol 3 mg (2.5 mg base)/3 mL nebulization soln 3 ml inhalation 4X/DAY PRN sob 05/02/21 liothyronine 25 mcg tablet 25 mcg PO DAILY THYROID 05/02/21 tiotropium bromide 18 mcg capsule with inhalation device (Spiriva with HandiHaler) 18 mcg inhalation DAILY SOB 05/02/21 vitamins A,C,V-[id number]-[id number] 4,296 mcg-226 mg-90 mg capsule (PreserVision AREDS) 1 cap PO BID vitamin 12/13/21 glimepiride 2 mg tablet 2 mg PO DAILY DM #3 tabs 03/09/23 empagliflozin 10 mg tablet (Jardiance) 10 mg PO DAILY heart failure 30 days #30 tabs 04/26/23 lisinopril 10 mg tablet 10 mg PO DAILY HTN 06/27/23 metoprolol succinate 25 mg tablet,extended release 24 hr 25 mg PO DAILY heart 06/27/23 pantoprazole 40 mg tablet,delayed release (Protonix) 40 mg PO DAILY stomach 06/27/23 ferrous sulfate 325 mg (65 mg iron) tablet (FeroSul) 325 mg PO BID supplement 11/14/23 aspirin 81 mg tablet,delayed release (Adult Aspirin Regimen) 81 mg PO DAILY heart health 11/18/23 sucralfate 1 gram tablet (Carafate) 1 g PO TID #90 tabs 12/28/23 torsemide 5 mg tablet 5 mg PO DAILY water pill 01/29/24 furosemide 40 mg tablet 40 mg PO DAILY water pill 02/02/24 prednisone 10 mg tablet 10 mg PO DAILY #32 tabs 02/04/24 Hospital Course Operations None Procedures None Summary of Care Provided Minutes Spent on Discharge: 35 Hospital Course: Per HPI: BEULAH BRIGHT, is a 83 M with a past medical history of essential hypertension, hyperlipidemia; on atorvastatin, hypothyroidism; on Liothyronine, obesity; with BMI of 32.7 this admission, DM-2; of unknown control on jardiance and glimepiride, former history of tobacco abuse; with subsequent COPD, chronic hypoxic respiratory failure on 2-4L NC, CAD; s/p NSTEMI and LHC (2022) on BASA, mild LVH, chronic diastolic CHF; with preserved LVEF on torsemide, history of nonrheumatic aortic stenosis, history of carotid artery stenosis, history of TIA, history of syncope, history of cataract; s/p extraction, GERD; on Protonix and sucralfate, CKD; stage IIIb with baseline creatinine of ~2.3 mg/dL and eGFR of 28 mL/min, chronic macrocytic anemia plus KRISTY with baseline hemoglobin of ~8 g/dL, history of polyps in sigmoid colon with GI bleed requiring 3 units of PRBC's (December 10, 2023) and history of GI bleed; s/p EGD with cauterization of gastric ulcer by Dr. Joy of gastroenterology during recent admission here from December 26, 2023 to December 28, 2023 with patient requiring transfusion of 1 unit of PRBC's and then was apparently restarted on BASA in addition to Protonix and carafate who re-presents to [facility] ER complaining of SOB, cough and wheezing. Mr. Bright reports his acute symptoms began approximately 2-3 days prior to admission with the gradual-onset of MENG that progressed to SOB at rest. He also admits to a frequent but non productive cough. He states he has had similar episodes in the past associated with his previous AE COPD. 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 He is concerned his BASA is causing his repeated GI bleeds and he is now reluctant to take it anymore. He also denies associated fever, chills, nausea, vomiting, diarrhea, constipation, headache or paresthesias but he does admit to fatigue and nonproductive cough. In the ER he was diagnosed with clinical evidence of AE COPD in the setting of known Chronic Hypoxic Respiratory Failure complicated by worsening anemia with hemoglobin of 7.5 g/dL present on admission in the setting of two recent admissions for GI bleed likely due to Adverse Drug Reaction to BASA with stool Hemoccult done in ER negative this admission and he was then admitted to the PCU for ongoing care for a stay that is expected to extend beyond 2 midnights. Hospital Course: 1. Increase shortness of breath in the setting of chronic hypoxic respiratory failure requiring 3 L nasal cannula for acute exacerbation of his COPD?[age]-year-old male presented to the hospital with increased shortness of breath and dyspnea on exertion that started 2 to 3 days prior to admission. He does have a history of diastolic heart failure but also COPD. It was felt that this episode was likely due to worsening of his COPD. He normally wears anywhere between 2 to 4 L nasal cannula at all times and on arrival to the ER was requiring 4 L. He was continued on his home medications and started on Solu-Medrol as well as inhalers. He had very rapid improvement and I discussed with him the possibility of discharge today versus tomorrow, he request to be discharged today. I discussed with him the fact that he is continuing to be anemic with a hemoglobin of 7.5 and that it might be preferable for him to stay 1 more day to make sure that this remains stable however he refused and would like to go home. He expressed understanding the risks and benefits of going home. He was given a dose of Venofer today as his ferritin was low and continued on his oral iron on discharge. He was just recently on a steroid in the beginning of January therefore we will place him on a slower steroid taper on discharge. No leukocytosis and viral panel was negative. Recommend follow-up with his PCP in 3 to 5 days to monitor his hemoglobin, will continue with his PPI given that he needs to be on aspirin. 2. Essential hypertension, hyperlipidemia, coronary artery disease, GERD with chronic anemia, type 2 diabetes, hypothyroidism are all chronic medical conditions which complicate his care. His home medications were continued where appropriate Physical Exam Narrative General: Alert, Oriented x3, Cooperative, No apparent distress HEENT: Atraumatic, PERRLA, EOMI, Normocephalic Oral: Moist Mucosa Neck: Supple, No JVD Lungs: Diminished, Normal air movement, No rhonchi, No wheeze, No rales Cardiovascular: Regular rate, Regular Rhythm, Normal S1, Normal S2, No murmurs Abdomen: Soft, Non Tender, Non-Distended, No Hepato-splenomegaly Extremities: No edema, Capillary Refill Less than 3 Seconds Skin: No rashes, No breakdown Musculoskeletal: No Tenderness to Palpation of Joints or Extremities Neurological: No focal neurological deficits, Motor Exam 5/5 strength throughout, Sensory exam intact to light touch and pain Psych/Mental Status: Normal Affect, Appropriate Weight / BMI Weight Weight: 185 lb 6.54 oz Body Mass Index (BMI) 30.8 ABG / Lab / Microbiology Data 02/04/24 05:47 02/04/24 05:47 Laboratory: Laboratory Results - last 24 hr 02/03/24 01:08: Vitamin B12 661 02/03/24 21:31: POC Glucose 192 H 02/04/24 05:47: WBC 8.5, RBC 2.40 L, Hgb 7.5 L, Hct 23.6 L, MCV 98.3 H, MCH 31.3, MCHC 31.8 L, RDW Std Deviation 53.0 H, RDW Coeff of John 14.9 H, Plt Count 129 L, MPV 11.0, Immature Gran % (Auto) 0.600, Neut % (Auto) 92.1 H, Lymph % (Auto) 5.3 L, Campbell % (Auto) 1.9, Eos % (Auto) 0.0, Baso % (Auto) 0.1, Absolute Neuts (auto) 7.9 H, Absolute Lymphs (auto) 0.45 L, Nucleated RBC % 0, Sodium 139, Potassium 5.2 H, Chloride 108 H, Carbon Dioxide 24.0, Anion Gap 7, BUN 73 H , Creatinine 2.39 H, Estim Creat Clear Calc 22.96, Est GFR (MDRD) Af Amer 33 L, Est GFR (MDRD) Non-Af 28 L, BUN/Creatinine Ratio 30.5 H, Glucose 220 H, Calcium 9.4 02/04/24 06:11: POC Glucose 196 H 02/04/24 10:55: POC Glucose 158 H 02/04/24 15:53: POC Glucose 259 H Microbiology: Microbiology 02/02/24 22:20 Mucosa - Nose SARS-CoV-2, Influenza & RSV (PCR) - Final 02/02/24 23:15 Stool Stool Occult Blood (CLARY) - Final D/C Instructions Discharge Diet: Low fat / Low cholesterol Call your doctor if you observe: Fever of 101 or Higher, Shortness of breath, Dizziness, Fainting spells, Swelling in the ankles, Chest pain and Increased palpitations (irregular heartbeat) DC O2, CPAP, BIPAP Needs RN Home O2 Qualification: Home O2 Qualification: Is the patient on home oxygen Yes 02/04/24 14:26 Home O2 Qualification: AT REST 1-Pulse Ox at rest 100 02/04/24 14:26 1- Oxygen flow rate at rest 3 02/04/24 14:26 Home O2 Qualification: WITH AMBULATION 1- Pulse Ox with ambulation 94 02/04/24 14:26 1- Oxygen Flow Rate with 3 02/04/24 14:26 ambulation Additional Home O2 Discharge instructions: No DC home with Oxygen: No Meaningful Use Info Meaningful Use Meaningful Use Diagnoses (Choose all that apply): None applicable Ischemic Stroke Statin Dosing Therapy Reference: STATIN DOSE THERAPY REFERENCE: * Patients > 75 years receive moderate or high dose statin therapy. * Patients 75 years or YOUNGER should receive HIGH intensity statin dose unless contraindicated. You will be required to document reason for non-treatment if statin daily dose does not meet guidelines. HIGH DOSE STATIN THERAPY DAILY Atorvastatin > than or = to 40 mg Rosuvastatin > than or = to 20 mg Amlodipine + Atorvastatin > than or = to 2.5/40 mg Ezetimibe + Simvastatin 10/80 mg Simvastatin 80mg Discharge Plan Admission Admit Date/Time: 02/03/24 00:26 Attending Provider: John Anders Primary Care Provider: Emeka Hernandez Consulting Providers: Irwin Landa; Fred Ramos Instructions Additional Instructions / Restrictions: Follow-up with your PCP in 3 to 5 days to monitor your hemoglobin and obtain a CBC. Discharge Orders/Prescriptions Prescriptions: New prednisone 10 mg tablet 10 mg PO DAILY Qty: 32 0RF Rx Instructions: Take 4 tablets daily for 3 days then 3 tablets daily for 3 days then 2 tablets daily for 3 days then 1 tablet daily for 3 days then half tablet daily for 4 days Continued atorvastatin 80 mg tablet 80 mg PO DAILY ipratropium-albuterol 0.5 mg-3 mg(2.5 mg base)/3 mL solution for nebulization 3 ml inhalation 4X/DAY PRN (Reason: sob) Patient Comments: inhale contents of 1 vial ( 3 milliliters ) in nebulizer by mouth... (REFER TO PRESCRIPTION NOTES). liothyronine 25 mcg tablet 25 mcg PO DAILY Patient Comments: TAKE 1 TABLET BY MOUTH ONCE DAILY FOR 90 DAYS tiotropium bromide [Spiriva with HandiHaler] 18 mcg capsule, w/inhalation device 18 mcg INHALATION DAILY Patient Comments: INHALE THE CONTENTS OF 1 CAPSULE TWICE EACH TIME VIA HANDIHALER ONCE DAILY cholecalciferol (vitamin D3) 25 mcg (1,000 unit) Capsule 25 mcg PO DAILY PreserVision AREDS [id number] Capsule 1 cap PO BID Jardiance 10 mg Tablet 10 mg PO DAILY 30 Days Qty: 30 0RF glimepiride 2 mg tablet 2 mg PO DAILY Qty: 3 0RF Patient Comments: take 1 tablet by mouth once daily WITH FIRST MEAL OF THE DAY Rx Instructions: Hold if glucose less than 130 mg/dl sucralfate [Carafate] 1 gram tablet 1 g PO TID Qty: 90 0RF lisinopril 10 mg tablet 10 mg PO DAILY pantoprazole [Protonix] 40 mg tablet,delayed release (DR/EC) 40 mg PO DAILY metoprolol succinate 25 mg tablet extended release 24 hr 25 mg PO DAILY ferrous sulfate [FeroSul] 325 mg (65 mg iron) tablet 325 mg PO BID aspirin [Adult Aspirin Regimen] 81 mg tablet,delayed release (DR/EC) 81 mg PO DAILY torsemide 5 mg tablet 5 mg PO DAILY furosemide 40 mg tablet 40 mg PO DAILY Discontinued prednisone 20 mg tablet 40 mg PO DAILY Qty: 8 0RF Rx Instructions: Next dose 01/11/2024 Referrals / Follow Up: Emeka Hernandez MD [Primary Care Provider] - Within 1 Week Disposition Disposition (needs filled in before D/C Order can be placed): Home, Self Care Charges/Coding Visit Charges Inpatient E&M: 07550 Disch Hosp >30min
== END 2024-02-04 18:24 | disposition home or self-care (01) | DRG 191 ==
LOC: ED 02-03 00:07 → PCU 02-03 04:49
PROVIDERS: Internal Medicine; Admitting Provider Internal Medicine; Emergency Provider Emergency Medicine; PCP Family Medicine; Visit Provider Family Medicine
DX: J44.1 Chronic obstructive pulmonary disease with (acute) exacerbation (principal); J96.11 Chronic respiratory failure with hypoxia; I13.0 Hypertensive heart and chronic kidney disease with heart failure and stage 1 through stage 4 chronic kidney disease, or unspecified chronic kidney disease; I50.32 Chronic diastolic (congestive) heart failure; N18.4 Chronic kidney disease, stage 4 (severe); E11.21 Type 2 diabetes mellitus with diabetic nephropathy; D50.9 Iron deficiency anemia, unspecified; E03.9 Hypothyroidism, unspecified; Z68.32 Body mass index [BMI] 32.0-32.9, adult; K25.7 Chronic gastric ulcer without hemorrhage or perforation; E11.22 Type 2 diabetes mellitus with diabetic chronic kidney disease; I25.10 Atherosclerotic heart disease of native coronary artery without angina pectoris; E78.5 Hyperlipidemia, unspecified; K21.9 Gastro-esophageal reflux disease without esophagitis; I25.2 Old myocardial infarction; E66.9 Obesity, unspecified; Z87.891 Personal history of nicotine dependence; Z82.3 Family history of stroke; Z79.84 Long term (current) use of oral hypoglycemic drugs; Z79.82 Long term (current) use of aspirin; Z86.73 Personal history of transient ischemic attack (TIA), and cerebral infarction without residual deficits; Z99.81 Dependence on supplemental oxygen
CPT/HCPCS: 36415; 71045; 80048; 80053; 82274; 82607; 82728; 82746; 82962; 83036; 83540; 83550; 83735; 83880; 84100; 84443; 84484; 85025; 86850; 86900; 86901; 87631; 93005; 94640; 97162; 97166; 97530; 97535; 99252; 99285; J7050; A4216; G0463; J2916

== ENCOUNTER → 2024-02-11 | Outpatient (CLI) | payer MEDICARE, SELFPAY ==
[2024-02-11 12:30] LABS: Absolute Lymphocyte Count 0.79 X10^3/uL (0.83-4.51); Basophil# 0.01 X10^3/uL; Basophil% 0.1 % (0-1); Eosinophil# 0.13 X10^3/uL; Eosinophils% 1.5 % (0-5); Hematocrit 28.4 % (40-54); Hemoglobin 8.6 g/dL (13.0-16.5); Lymphocyte # 0.79 X10^3/ul (0.83-4.51); Lymphocyte % 9.2 % (19-41); Mean Corp Hgb Conc 30.3 g/dL (32-36); Mean Corpuscular Hgb 30.8 pg (27.0-32.0); Mean Corpuscular Volume 101.8 fL (80-94); Monocyte# 0.31 X10^3/uL; Monocyte% 3.6 % (0-10); NRBC Flagged by Analyzer 0 % (0-5); Neutrophil # 7.03 X10^3/uL (2.7-7.7); Neutrophil % 82.2 % (47-70); Platelet Count 121 K/mm3 (150-450); RBC Distribution Width CV 15.3 % (11.6-14.6); Red Blood Count 2.79 M/mm3 (4.6-6.2); White Blood Count 8.6 K/mm3 (4.4-11.0)
== END | disposition home or self-care (01) ==
LOC: MFPLAB 10:36
PROVIDERS: PCP Family Medicine; Referring Provider Family Medicine; Visit Provider Family Medicine
DX: E03.9 Hypothyroidism, unspecified (principal); Z87.19 Personal history of other diseases of the digestive system
CPT/HCPCS: 36415; 84443; 85025

== ENCOUNTER → 2024-02-21 | Outpatient (CLI) | payer MEDICARE, SELFPAY ==
[2024-02-21 17:44] LABS: Absolute Lymphocyte Count 1.21 X10^3/uL (0.83-4.51); Absolute Neutrophil Count 4.8 X10^3/uL (2.0-7.7); Basophil# 0.03 X10^3/uL; Basophil% 0.4 % (0-1); Eosinophil# 0.22 X10^3/uL; Eosinophils% 3.3 % (0-5); Hematocrit 23.2 % (40-54); Hemoglobin 7.1 g/dL (13.0-16.5); Lymphocyte # 1.21 X10^3/ul (0.83-4.51); Lymphocyte % 18.1 % (19-41); Mean Corp Hgb Conc 30.6 g/dL (32-36); Mean Corpuscular Hgb 30.9 pg (27.0-32.0); Mean Corpuscular Volume 100.9 fL (80-94); Mean Platelet Vol. 11.2 fl (6.2-12.0); Monocyte# 0.41 X10^3/uL; Monocyte% 6.1 % (0-10); NRBC Flagged by Analyzer 0 % (0-5); Neutrophil % 71.8 % (47-70); Platelet Count 124 K/mm3 (150-450); RBC Distribution Width CV 13.9 % (11.6-14.6); RBC Distribution Width SD 51.2 fl (35.1-43.9); White Blood Count 6.7 K/mm3 (4.4-11.0)
[2024-02-21 18:02] LABS: Anion Gap 6 (5-15); BUN 63 mg/dL (7-18); BUN/Creat Ratio 25.2 RATIO (10-20); Calcium,Total 9.9 mg/dL (8.5-10.1); Chloride 105 mmol/L (98-107); EST Glomerular Filtration Rate 26 mL/min (>60); Est Glom Filt Rate - Afr Amer 32 mL/min (>60); Glucose 181 mg/dL (74-106); Potassium 5.1 mmol/L (3.5-5.1); Sodium Level 141 mmol/L (136-145)
== END | disposition home or self-care (01) ==
LOC: MFPLAB 15:46
PROVIDERS: PCP Family Medicine; Referring Provider Family Medicine; Visit Provider Family Medicine
DX: D64.9 Anemia, unspecified (principal); E11.9 Type 2 diabetes mellitus without complications
CPT/HCPCS: 36415; 80048; 85025

== ENCOUNTER 2024-02-28 15:30 | Inpatient (IN) | payer MEDICARE, SELFPAY ==
[2024-02-28] VITALS (26 sets, daily range): BP systolic 90–140; BP diastolic 40–78; PULSE 92–117; RESP 12–37; TEMP 35.6–36.9; O2SAT 96–100; BMI 31.9; BMI 30.5
--- NOTE | 2024-02-28 15:33 | ED.VIS.DYS ---
HPI History of Present Illness Chief Complaint: Shortness of Breath [facility] Medical History Obesity (BMI 30.0-34.9) Anemia Upper GI bleed History of valvular heart disease Acute on chronic anemia Acute dyspnea Acute on chronic renal insufficiency Acute on chronic anemia Symptomatic anemia Abnormal ECG Elevated troponin Shortness of breath Acute upper gastrointestinal bleeding Essential hypertension Renal insufficiency Non-ST elevation (NSTEMI) myocardial infarction COPD (chronic obstructive pulmonary disease) Loss of hearing No natural teeth Wears glasses Poor historian Thyroid disease Low iron High cholesterol Syncope History of GI bleed Shortness of breath on exertion History of echocardiogram Cardiology follow-up encounter Symptomatic anemia Diabetes Kidney disease Former smoker On home oxygen therapy TIA (transient ischemic attack) Myocardial infarct Hypertension Diastolic CHF Acute and chronic respiratory failure with hypoxia History of CAD (coronary artery disease) Nonrheumatic aortic (valve) stenosis Mild left ventricular hypertrophy History of left heart catheterization (LHC) (~03/15/22) Atherosclerotic heart disease of [place] coronary artery without angina pectoris Aortic valve stenosis, acquired CAD (coronary artery disease) COPD (chronic obstructive pulmonary disease) Polyarthralgia Diabetes mellitus, type 2 Former tobacco use Obesity Hypothyroidism HLD (hyperlipidemia) HTN (hypertension) Chronic respiratory failure with hypoxia Home Medications ?Medication ?Instructions ?Recorded ?Last Taken ?Type atorvastatin 80 mg tablet 80 mg PO DAILY CHOLESTEROL 05/02/21 02/27/24 History cholecalciferol (vitamin D3) 25 25 mcg PO DAILY vitamin 05/02/21 02/28/24 History mcg (1,000 unit) capsule ipratropium 0.5 mg-albuterol 3 mg 3 ml inhalation 4X/DAY PRN sob 05/02/21 11/18/23 History (2.5 mg base)/3 mL nebulization soln liothyronine 25 mcg tablet 25 mcg PO DAILY THYROID 05/02/21 02/28/24 History tiotropium bromide 18 mcg capsule 18 mcg inhalation DAILY SOB 05/02/21 02/28/24 History with inhalation device (Spiriva with HandiHaler) vitamins A,C,H-jtwh-[id number] 4,296 1 cap PO BID vitamin 12/13/21 02/28/24 History mcg-226 mg-90 mg capsule (PreserVision AREDS) glimepiride 2 mg tablet 2 mg PO DAILY DM #3 tabs 03/09/23 02/28/24 Rx empagliflozin 10 mg tablet 10 mg PO DAILY heart failure 30 04/26/23 12/06/23 Rx (Jardiance) days #30 tabs metoprolol succinate 25 mg 25 mg PO DAILY heart 06/27/23 02/28/24 History tablet,extended release 24 hr pantoprazole 40 mg tablet,delayed 40 mg PO DAILY stomach 06/27/23 02/28/24 History release (Protonix) ferrous sulfate 325 mg (65 mg 325 mg PO BID supplement 11/14/23 02/28/24 History iron) tablet (FeroSul) torsemide 5 mg tablet 5 mg PO DAILY water pill 01/29/24 02/28/24 History furosemide 40 mg tablet 40 mg PO DAILY water pill 02/02/24 02/28/24 History sucralfate 1 gram tablet (Carafate) 1 g PO TID #90 tabs 02/15/24 02/28/24 Rx lisinopril 10 mg tablet 10 mg PO DAILY 02/28/24 02/27/24 History Allergy/AdvReac Type Severity Reaction Status Date / Time aliskiren (From Valturna) Allergy Intermediate Other Verified 02/28/24 15:39 valsartan (From Valturna) Allergy Intermediate Other Verified 02/28/24 15:39 codeine AdvReac Upset Verified 02/28/24 15:39 Stomach Family History Mother CVA (cerebral vascular accident) Heart disease Myocardial infarction Hx of CABG Hypertension Father CVA (cerebral vascular accident) Heart disease Surgical History S/P cataract extraction Social History household members: none housing: house Smoking Status: Former smoker how long ago did patient quit smoking: Quit 2010, prior 1 ppd since teen. alcohol intake: former year quit: 2010 substance use type: does not use EXAM Physical Exam Const Vital Signs: 02/28/24 15:30 02/28/24 15:33 02/28/24 15:38 Temperature 97.7 F L Temperature Source Oral Pulse Rate 111 H Respiratory Rate 35 H Respiratory Effort Respiratory Depth Respiratory Pattern Blood Pressure 134/45 H Blood Pressure Mean 74 Blood Pressure Source Blood Pressure Position Blood Pressure Location Pulse Ox 100 100 Oxygen Delivery Method Nasal Cannula Nasal Cannula Nasal Cannula Oxygen Flow Rate (L/min) 6 6 6 02/28/24 15:40 02/28/24 15:48 02/28/24 15:51 Temperature Temperature Source Pulse Rate 106 H Respiratory Rate 23 H 21 H Respiratory Effort Short of Breath Labored Respiratory Depth Shallow Respiratory Pattern Tachypnea Tachypnea Blood Pressure Blood Pressure Mean Blood Pressure Source Blood Pressure Position Blood Pressure Location Pulse Ox 100 Oxygen Delivery Method Nasal Cannula Nasal Cannula Oxygen Flow Rate (L/min) 6 4 02/28/24 15:51 02/28/24 16:05 02/28/24 16:15 Temperature Temperature Source Pulse Rate 108 H 113 H Respiratory Rate 12 20 H Respiratory Effort Respiratory Depth Respiratory Pattern Blood Pressure 117/78 Blood Pressure Mean 84 Blood Pressure Source Blood Pressure Position Blood Pressure Location Pulse Ox 100 99 Oxygen Delivery Method Nasal Cannula Oxygen Flow Rate (L/min) 3 02/28/24 16:30 02/28/24 16:37 02/28/24 16:45 Temperature 98.4 F Temperature Source Oral Pulse Rate 117 H 112 H 112 H Respiratory Rate 37 H 24 H 20 H Respiratory Effort Respiratory Depth Respiratory Pattern Blood Pressure 90/57 L 129/47 H Blood Pressure Mean 67 74 Blood Pressure Source Blood Pressure Position Blood Pressure Location Pulse Ox 98 97 99 Oxygen Delivery Method Nasal Cannula Oxygen Flow Rate (L/min) 3 02/28/24 16:47 02/28/24 17:00 02/28/24 17:00 Temperature 98 F Temperature Source Oral Pulse Rate 111 H 101 H 105 H Respiratory Rate 28 H 19 H 13 Respiratory Effort Respiratory Depth Respiratory Pattern Blood Pressure 129/47 H 106/70 106/58 L Blood Pressure Mean 68 82 72 Blood Pressure Source Blood Pressure Position Blood Pressure Location Pulse Ox 99 100 96 Oxygen Delivery Method Nasal Cannula Oxygen Flow Rate (L/min) 3 02/28/24 17:15 02/28/24 17:26 02/28/24 17:27 Temperature 98.0 F Temperature Source Oral Pulse Rate 106 H 106 H 106 H Respiratory Rate 21 H 24 H 22 H Respiratory Effort Respiratory Depth Respiratory Pattern Blood Pressure 106/58 L 101/72 Blood Pressure Mean 74 82 Blood Pressure Source Monitor Blood Pressure Position Sitting Blood Pressure Location Right Arm Pulse Ox 100 99 98 Oxygen Delivery Method Nasal Cannula Oxygen Flow Rate (L/min) 3 02/28/24 17:30 02/28/24 17:37 Temperature 98 F Temperature Source Pulse Rate 103 H 101 H Respiratory Rate 23 H 18 Respiratory Effort Respiratory Depth Respiratory Pattern Blood Pressure 106/70 106/70 Blood Pressure Mean 81 82 Blood Pressure Source Blood Pressure Position Blood Pressure Location Pulse Ox 98 100 Oxygen Delivery Method Oxygen Flow Rate (L/min) MDM MDM MDM Narrative Medical decision making narrative: ED attending note: Please see separate CLEMENTE note. I evaluated the patient in conjunction with the CLEMENTE. I agree with his/her statements and above findings. I have personally performed a face to face assessment of the patient and have reviewed the CLEMENTE Note. I performed a substantive portion of the visit including all aspects of the following. I personally saw the patient performed chart review, physical exam, reviewed labs, imaging (if obtained), and formulated a treatment and management plan. 83-year-old male history of COPD on 2 to 4 L at baseline, GI bleed, severe anemia presents with shortness of breath concerned that his counts are low again. No PE risk factors. Exam with some mucosal pallor. Patient did not display signs of respiratory distress. Lungs without wheezing or rales. No lower extremity edema. Will obtain a broad lab and imaging workup to further elucidate etiology of patient's complaints. Labs with severe anemia. Will get blood transfusion. Hemoccult negative. Will admit the patient for symptomatic anemia for transfusion and further management. This note was generated with CAPPTURE dictation software. It may contain incorrect words, spelling, and punctuation that were not noted in review of the chart prior to signing. Lab Data Labs: Laboratory Results - last 24 hr 02/28/24 15:48 WBC 3.6 L RBC 2.16 L Hgb 6.9 L Hct 22.2 L MCV 102.8 H MCH 31.9 MCHC 31.1 L RDW Std Deviation 58.4 H RDW Coeff of John 15.9 H Plt Count 135 L MPV 10.1 Immature Gran % (Auto) 1.100 H Neut % (Auto) 61.7 Lymph % (Auto) 21.8 [place] % (Auto) 10.1 H Eos % (Auto) 4.7 Baso % (Auto) 0.6 Absolute Neuts (auto) 2.2 Absolute Lymphs (auto) 0.78 L Nucleated RBC % 0 Sodium 139 Potassium 4.2 Chloride 104 Carbon Dioxide 28.0 Anion Gap 7 BUN 61 H Creatinine 2.96 H Estim Creat Clear Calc 18.85 Est GFR (MDRD) Af Amer 26 L Est GFR (MDRD) Non-Af 22 L BUN/Creatinine Ratio 20.6 H Glucose 317 H Calcium 9.0 Troponin I High Sens 31 B-Natriuretic Peptide 87.6 Blood Type A NEGATIVE Antibody Screen NEGATIVE Crossmatch See Detail Radiography Diagnostic Testing: Clinical Impression(s) from Imaging Studies Chest X-Ray 02/28/24 16:05 IMPRESSION: Basilar atelectasis. Electronically Signed: Kevin Lockhart DO at 16:26 EST Reading Location ID and State: [facility] / [place] Tel [phone], Service support , Discharge Plan Dx/Rx/DC Orders Clinical Impression: Acute dyspnea, Anemia, Weakness Disposition Disposition: Acute Care Hospital [facility] Discharge Date/Time: 02/28/24 18:37
--- NOTE | 2024-02-28 15:38 | EKG12_ITS ---
Test Reason : SOB Blood Pressure : */* mmHG Vent. Rate : 104 BPM Atrial Rate : * BPM P-R Int : * ms QRS Dur : 86 ms QT Int : 346 ms P-R-T Axes : * 2 139 degrees QTcB Int : 454 ms Sinus tachycardia Nonspecific ST and T wave abnormality Abnormal ECG Confirmed by JOSHUA CARRILLO, JACOB ([id number]), advertising editor ZACKARY MARTINEZ ([id number]) on 02/29/2024 8:14:04 AM Referred By: Confirmed By: JACOB LEWIS MD
--- NOTE | 2024-02-28 15:41 | EX.ED.DYSGE1 ---
HPI History of Present Illness Chief Complaint: Shortness of Breath Narrative Narrative: Patient is an 83-year-old male with a extensive medical history with COPD, CHF, history of anemia, hypertension hyperlipidemia diabetes who presents to the emergency department for 1 week of worsening shortness of breath. Patient states that his biggest concern is that his blood level is low. 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 Patient did have GI bleed in the middle of December 2023 and was admitted to the hospital for 2 days. Patient states he has been having hemoglobin between 8-9. Patient states that the shortness of breath was worse and he is having difficulty getting around at home. Denies any fever or chills. Denies any specific chest pain. Here for evaluation [facility] Medical History (Updated 02/28/24 @ 17:41 by Emeka Combs NP-Fidencio) Obesity (BMI 30.0-34.9) Anemia Upper GI bleed History of valvular heart disease Acute on chronic anemia Acute dyspnea Acute on chronic renal insufficiency Acute on chronic anemia Symptomatic anemia Abnormal ECG Elevated troponin Shortness of breath Acute upper gastrointestinal bleeding Essential hypertension Renal insufficiency Non-ST elevation (NSTEMI) myocardial infarction COPD (chronic obstructive pulmonary disease) Loss of hearing No natural teeth Wears glasses Poor historian Thyroid disease Low iron High cholesterol Syncope History of GI bleed Shortness of breath on exertion History of echocardiogram Cardiology follow-up encounter Symptomatic anemia Diabetes Kidney disease Former smoker On home oxygen therapy TIA (transient ischemic attack) Myocardial infarct Hypertension Diastolic CHF Acute and chronic respiratory failure with hypoxia History of CAD (coronary artery disease) Nonrheumatic aortic (valve) stenosis Mild left ventricular hypertrophy History of left heart catheterization (LHC) (~03/15/22) Atherosclerotic heart disease of [place] coronary artery without angina pectoris Aortic valve stenosis, acquired CAD (coronary artery disease) COPD (chronic obstructive pulmonary disease) Polyarthralgia Diabetes mellitus, type 2 Former tobacco use Obesity Hypothyroidism HLD (hyperlipidemia) HTN (hypertension) Chronic respiratory failure with hypoxia Home Medications ?Medication ?Instructions ?Recorded ?Last Taken ?Type atorvastatin 80 mg tablet 80 mg PO DAILY CHOLESTEROL 05/02/21 02/27/24 History cholecalciferol (vitamin D3) 25 25 mcg PO DAILY vitamin 05/02/21 02/28/24 History mcg (1,000 unit) capsule ipratropium 0.5 mg-albuterol 3 mg 3 ml inhalation 4X/DAY PRN sob 05/02/21 11/18/23 History (2.5 mg base)/3 mL nebulization soln liothyronine 25 mcg tablet 25 mcg PO DAILY THYROID 05/02/21 02/28/24 History tiotropium bromide 18 mcg capsule 18 mcg inhalation DAILY SOB 05/02/21 02/28/24 History with inhalation device (Spiriva with HandiHaler) vitamins A,C,A-jktu-wmvkan 4,296 1 cap PO BID vitamin 12/13/21 02/28/24 History mcg-226 mg-90 mg capsule (PreserVision AREDS) glimepiride 2 mg tablet 2 mg PO DAILY DM #3 tabs 03/09/23 02/28/24 Rx empagliflozin 10 mg tablet 10 mg PO DAILY heart failure 30 04/26/23 12/06/23 Rx (Jardiance) days #30 tabs metoprolol succinate 25 mg 25 mg PO DAILY heart 06/27/23 02/28/24 History tablet,extended release 24 hr pantoprazole 40 mg tablet,delayed 40 mg PO DAILY stomach 06/27/23 02/28/24 History release (Protonix) ferrous sulfate 325 mg (65 mg 325 mg PO BID supplement 11/14/23 02/28/24 History iron) tablet (FeroSul) torsemide 5 mg tablet 5 mg PO DAILY water pill 01/29/24 02/28/24 History furosemide 40 mg tablet 40 mg PO DAILY water pill 02/02/24 02/28/24 History sucralfate 1 gram tablet (Carafate) 1 g PO TID #90 tabs 02/15/24 02/28/24 Rx lisinopril 10 mg tablet 10 mg PO DAILY 02/28/24 02/27/24 History Allergy/AdvReac Type Severity Reaction Status Date / Time aliskiren (From Valturna) Allergy Intermediate Other Verified 02/28/24 15:39 valsartan (From Valturna) Allergy Intermediate Other Verified 02/28/24 15:39 codeine AdvReac Upset Verified 02/28/24 15:39 Stomach Family History Mother CVA (cerebral vascular accident) Heart disease Myocardial infarction Hx of CABG Hypertension Father CVA (cerebral vascular accident) Heart disease Surgical History S/P cataract extraction Social History household members: none housing: house Smoking Status: Former smoker how long ago did patient quit smoking: Quit 2011, prior 1 ppd since teen. alcohol intake: former year quit: 2010 substance use type: does not use ROS ROS ED ROS Narrative Constitutional: Negative for fever, chills, weight loss. Positive for weakness Eyes: Negative for vision loss, vision change, double vision ENT: Negative for any sore throat, ear pain, congestion Cardiovascular: Negative for any chest pain, tightness, palpitations Respiratory: Negative for any cough, sputum production, hemoptysis. Positive for dyspnea, dyspnea on exertion, orthopnea Gastrointestinal: Negative for any abdominal pain, nausea, vomiting, diarrhea, constipation, blood in stool, blood in vomit : Negative for any urinary frequency, dysuria, retention, blood in urine Muscle skeletal: Negative for any neck pain, back pain Neurological: Negative for any headache, syncope, dizziness Skin: Negative for any rashes, itching, abrasions, lacerations Psychiatric: Negative for any depression, anxiety, stress, suicidal ideation, homicidal ideation Hematologic: Negative for any excessive bruising, easy bleeding EXAM Physical Exam Narrative Exam Narrative: Vital signs reviewed. Patient on 6 L still with tachypnea Is 100% on room air. You believe this is mostly secondary to anxiety. Patient is tearful. HEET: Head normocephalic atraumatic, TMs clear bilaterally. Posterior pharynx is clear, moist mucous membranes. Nares clear bilaterally. Neck: Supple with no lymphadenopathy or tenderness. No signs of meningismus. Cardiac: Regular rate and rhythm no murmurs gallops or rubs, equal peripheral pulses bilaterally. Respiratory: Slight expiratory wheezes, diminished to both lower lobes. No chest tenderness. Abdomen: Soft, nontender, nondistended. No abdominal bruit or pulsatile masses. No hepatosplenomegaly Extremities: +1 pitting edema no signs of gross trauma or deformity. Active full range of motion of all extremities. Neuro: Cranial nerves II through XII intact, no focal neurological deficits. Skin: Clean dry and intact with no rash, purpura, petechiae, vesicles or pustules. Backs/flank: No CVA tenderness, no midline spinal tenderness, no deformity. Psych: Normal mood and affect. No SI, HI or acute psychosis. Const Vital Signs: 02/28/24 15:30 02/28/24 15:33 02/28/24 15:38 Temperature 97.7 F L Temperature Source Oral Pulse Rate 111 H Respiratory Rate 35 H Respiratory Effort Respiratory Depth Respiratory Pattern Blood Pressure 134/45 H Blood Pressure Mean 74 Blood Pressure Source Blood Pressure Position Blood Pressure Location Pulse Ox 100 100 Oxygen Delivery Method Nasal Cannula Nasal Cannula Nasal Cannula Oxygen Flow Rate (L/min) 6 6 6 02/28/24 15:40 02/28/24 15:48 02/28/24 15:51 Temperature Temperature Source Pulse Rate 106 H Respiratory Rate 23 H 21 H Respiratory Effort Short of Breath Labored Respiratory Depth Shallow Respiratory Pattern Tachypnea Tachypnea Blood Pressure Blood Pressure Mean Blood Pressure Source Blood Pressure Position Blood Pressure Location Pulse Ox 100 Oxygen Delivery Method Nasal Cannula Nasal Cannula Oxygen Flow Rate (L/min) 6 4 02/28/24 15:51 02/28/24 16:05 02/28/24 16:15 Temperature Temperature Source Pulse Rate 108 H 113 H Respiratory Rate 12 20 H Respiratory Effort Respiratory Depth Respiratory Pattern Blood Pressure 117/78 Blood Pressure Mean 84 Blood Pressure Source Blood Pressure Position Blood Pressure Location Pulse Ox 100 99 Oxygen Delivery Method Nasal Cannula Oxygen Flow Rate (L/min) 3 02/28/24 16:30 02/28/24 16:37 02/28/24 16:45 Temperature 98.4 F Temperature Source Oral Pulse Rate 117 H 112 H 112 H Respiratory Rate 37 H 24 H 20 H Respiratory Effort Respiratory Depth Respiratory Pattern Blood Pressure 90/57 L 129/47 H Blood Pressure Mean 67 74 Blood Pressure Source Blood Pressure Position Blood Pressure Location Pulse Ox 98 97 99 Oxygen Delivery Method Nasal Cannula Oxygen Flow Rate (L/min) 3 02/28/24 16:47 02/28/24 17:00 02/28/24 17:00 Temperature 98 F Temperature Source Oral Pulse Rate 111 H 101 H 105 H Respiratory Rate 28 H 19 H 13 Respiratory Effort Respiratory Depth Respiratory Pattern Blood Pressure 129/47 H 106/70 106/58 L Blood Pressure Mean 68 82 72 Blood Pressure Source Blood Pressure Position Blood Pressure Location Pulse Ox 99 100 96 Oxygen Delivery Method Nasal Cannula Oxygen Flow Rate (L/min) 3 02/28/24 17:15 02/28/24 17:26 02/28/24 17:27 Temperature 98.0 F Temperature Source Oral Pulse Rate 106 H 106 H 106 H Respiratory Rate 21 H 24 H 22 H Respiratory Effort Respiratory Depth Respiratory Pattern Blood Pressure 106/58 L 101/72 Blood Pressure Mean 74 82 Blood Pressure Source Monitor Blood Pressure Position Sitting Blood Pressure Location Right Arm Pulse Ox 100 99 98 Oxygen Delivery Method Nasal Cannula Oxygen Flow Rate (L/min) 3 02/28/24 17:30 02/28/24 17:37 Temperature 98 F Temperature Source Pulse Rate 103 H 101 H Respiratory Rate 23 H 18 Respiratory Effort Respiratory Depth Respiratory Pattern Blood Pressure 106/70 106/70 Blood Pressure Mean 81 82 Blood Pressure Source Blood Pressure Position Blood Pressure Location Pulse Ox 98 100 Oxygen Delivery Method Oxygen Flow Rate (L/min) Positive well nourished and well developed General Appearance ED: well developed MDM MDM Lab Data Labs: Laboratory Results - last 24 hr 02/28/24 15:48 WBC 3.6 L RBC 2.16 L Hgb 6.9 L Hct 22.2 L MCV 102.8 H MCH 31.9 MCHC 31.1 L RDW Std Deviation 58.4 H RDW Coeff of John 15.9 H Plt Count 135 L MPV 10.1 Immature Gran % (Auto) 1.100 H Neut % (Auto) 61.7 Lymph % (Auto) 21.8 [place] % (Auto) 10.1 H Eos % (Auto) 4.7 Baso % (Auto) 0.6 Absolute Neuts (auto) 2.2 Absolute Lymphs (auto) 0.78 L Nucleated RBC % 0 Sodium 139 Potassium 4.2 Chloride 104 Carbon Dioxide 28.0 Anion Gap 7 BUN 61 H Creatinine 2.96 H Estim Creat Clear Calc 18.85 Est GFR (MDRD) Af Amer 26 L Est GFR (MDRD) Non-Af 22 L BUN/Creatinine Ratio 20.6 H Glucose 317 H Calcium 9.0 Troponin I High Sens 31 B-Natriuretic Peptide 87.6 Blood Type A NEGATIVE Antibody Screen NEGATIVE Crossmatch See Detail Radiography Diagnostic Testing: Clinical Impression(s) from Imaging Studies Chest X-Ray 02/28/24 16:05 IMPRESSION: Basilar atelectasis. Electronically Signed: Kevin Lockhart DO at 16:26 EST , EKG Accelerated junctional rhythm: Attestation: I personally reviewed and interpreted this EKG as follows: Interpretation: Sinus Rhythm Comments: Sinus tach, rate of 104 bpm, QRS duration 86 ms, no acute ST elevation, no acute infarct noted Treatment and Re-Evaluation :: Differential diagnosis includes however is not limited to: Anemia, upper GI bleed, lower GI bleed, COPD, CHF, ACS, NV Patient on my initial evaluation appeared to be anxious, patient was tachypneic, afebrile. Presenting to the emergency department for 1 week of weakness, increased shortness of breath with any movement. Patient was seen for workup. EKG showed no acute ACS, NV. Patient CBC does show hemoglobin of 6.9, patient was then regularized. Patient does have history of a bleeding ulcer. BNP troponin BNP is also currently being run. Chest x-ray shows atelectasis, no acute process. Chest x-ray shows bibasilar atelectasis. Patient's laboratory values show hemoglobin 6.9, 7 days ago, the patient was 7.1. Patient's chemistries does show worsening kidney function with a creatinine of 2.96, patient is usually between 2.4-2.5. Patient's BNP is negative, troponin was negative. Patient's stool occult was negative. COVID-19 influenza RSV was negative. At this time, second of the patient's ongoing weakness, increased oxygen demand, newly the patient needs to be admitted to the hospital. Patient does not need any emergent scoping. Patient was given 1 unit of packed red blood cells, breathing treatments. On reevaluation, the patient was doing well on 4 L nasal cannula. I did reach out to hospitalist to admit the patient. Patient is stable. Discharge Plan Triage Chief Complaint: Shortness of Breath ED Midlevel Provider: Emeka Combs ED Provider: Gerry Womack Dx/Rx/DC Orders Clinical Impression: Acute dyspnea, Anemia, Weakness Prescriptions: No Action atorvastatin 80 mg tablet 80 mg PO DAILY ipratropium-albuterol 0.5 mg-3 mg(2.5 mg base)/3 mL solution for nebulization 3 ml inhalation 4X/DAY PRN (Reason: sob) Patient Comments: inhale contents of 1 vial ( 3 milliliters ) in nebulizer by mouth... (REFER TO PRESCRIPTION NOTES). liothyronine 25 mcg tablet 25 mcg PO DAILY Patient Comments: TAKE 1 TABLET BY MOUTH ONCE DAILY FOR 90 DAYS tiotropium bromide [Spiriva with HandiHaler] 18 mcg capsule, w/inhalation device 18 mcg INHALATION DAILY Patient Comments: INHALE THE CONTENTS OF 1 CAPSULE TWICE EACH TIME VIA HANDIHALER ONCE DAILY cholecalciferol (vitamin D3) 25 mcg (1,000 unit) Capsule 25 mcg PO DAILY PreserVision AREDS [id number] Capsule 1 cap PO BID Jardiance 10 mg Tablet 10 mg PO DAILY 30 Days Qty: 30 0RF glimepiride 2 mg tablet 2 mg PO DAILY Qty: 3 0RF Patient Comments: take 1 tablet by mouth once daily WITH FIRST MEAL OF THE DAY Rx Instructions: Hold if glucose less than 130 mg/dl pantoprazole [Protonix] 40 mg tablet,delayed release (DR/EC) 40 mg PO DAILY metoprolol succinate 25 mg tablet extended release 24 hr 25 mg PO DAILY ferrous sulfate [FeroSul] 325 mg (65 mg iron) tablet 325 mg PO BID torsemide 5 mg tablet 5 mg PO DAILY furosemide 40 mg tablet 40 mg PO DAILY lisinopril 10 mg tablet 10 mg PO DAILY sucralfate [Carafate] 1 gram tablet 1 g PO TID Qty: 90 0RF Primary Care Provider: Emeka Hernandez Referrals: Eemka Hernandez MD [Primary Care Provider] - Print Language: Tajik Disposition Disposition: Acute Care Hospital [facility]
[2024-02-28] MEDS: Albuterol 2.5 MG/3 ML VIAL.NEB. INHALATION (15:51)
[2024-02-28] MEDS: Ipratropium/Albuterol Sulfate 3 ML AMPUL.NEB INHALATION (15:51)
[2024-02-28 16:04] LABS: Absolute Lymphocyte Count 0.78 X10^3/uL (0.83-4.51); Absolute Neutrophil Count 2.2 X10^3/uL (2.0-7.7); Basophil# 0.02 X10^3/uL; Basophil% 0.6 % (0-1); Eosinophil# 0.17 X10^3/uL; Eosinophils% 4.7 % (0-5); Hematocrit 22.2 % (40-54); Hemoglobin 6.9 g/dL (13.0-16.5); Lymphocyte # 0.78 X10^3/ul (0.83-4.51); Lymphocyte % 21.8 % (19-41); Mean Corp Hgb Conc 31.1 g/dL (32-36); Mean Corpuscular Hgb 31.9 pg (27.0-32.0); Mean Corpuscular Volume 102.8 fL (80-94); Mean Platelet Vol. 10.1 fl (6.2-12.0); Monocyte# 0.36 X10^3/uL; Monocyte% 10.1 % (0-10); NRBC Flagged by Analyzer 0 % (0-5); Neutrophil # 2.21 X10^3/uL (2.7-7.7); Neutrophil % 61.7 % (47-70); Platelet Count 135 K/mm3 (150-450); RBC Distribution Width CV 15.9 % (11.6-14.6); RBC Distribution Width SD 58.4 fl (35.1-43.9); Red Blood Count 2.16 M/mm3 (4.6-6.2); White Blood Count 3.6 K/mm3 (4.4-11.0)
--- NOTE | 2024-02-28 16:05 | RAD_ITS ---
INDICATION: cough EXAMINATION/TECHNIQUE: X-RAY - XR Chest 1 View COMPARISON: FINDINGS: LINES/DEVICES: None. LUNGS: No consolidation, edema or effusion. Basilar atelectasis, left more than right. No pneumothorax. MEDIASTINUM AND CARDIOVASCULAR STRUCTURES: Cardiac silhouette not enlarged. Central airways and mediastinal contour are unremarkable. BONES AND SOFT TISSUES: Degenerative vertebral changes. RAD/Chest 1 View (Portable) IMPRESSION: Basilar atelectasis. Electronically Signed: Kevin Lockhart DO at 16:26 EST ,
[2024-02-28 16:31] LABS: Anion Gap 7 (5-15); BUN 61 mg/dL (7-18); BUN/Creat Ratio 20.6 RATIO (10-20); Chloride 104 mmol/L (98-107); Creatinine, Serum 2.96 mg/dL (0.70-1.30); EST Glomerular Filtration Rate 22 mL/min (>60); Est Glom Filt Rate - Afr Amer 26 mL/min (>60); Estimated Creatinine Clearance 18.85 ml/min; Glucose 317 mg/dL (74-106); Potassium 4.2 mmol/L (3.5-5.1); Sodium Level 139 mmol/L (136-145); Troponin-I HS 31 pg/mL (3.0-78.0)
[2024-02-28 16:36] LABS: BNP,B-Type NATRIURETIC PEPTIDE 87.6 pg/mL (0-100)
--- NOTE | 2024-02-28 17:39 | HP.PCM.HOS_ITS ---
HPI - General General Date of Admission: 02/28/24 Date of Service: 02/28/24 Chief Complaint: Increased SOB HPI Narrative BEULAH BRIGHT, is a 83-year-old male with history of COPD, CAD, heart failure preserved ejection fraction, hypothyroidism, diabetes, hypertension presented [facility] ED 02/28/2024 with shortness of breath. Patient's hemoglobin 6.9 in the ED with a baseline of sevens to eights. Given patient's suspected symptomatic anemia pack of blood cell transfusion ordered and hospitalist contacted for admission. Patient evaluated at bedside. 7 days ago his hemoglobin was checked and it was 7.1 and patient has not noted any overt bleeding but over the past week but he has noted increased shortness of breath which he reports happens when his hemoglobin is low. Denies any chest pain, no fevers or chills, no change in his lower extremity swelling. No chest pain, reports he gets constipated because of the iron pills he is taking and denies diarrhea, denies any blood in his stool or any other bleeding he has noted. He is not having any abdominal pain. [facility] Medical History (Updated 02/28/24 @ 17:41 by FALLON Stinson) Abnormal ECG Acute and chronic respiratory failure with hypoxia Acute dyspnea Acute on chronic anemia Acute on chronic anemia Acute on chronic renal insufficiency Acute upper gastrointestinal bleeding Anemia Aortic valve stenosis, acquired Atherosclerotic heart disease of [place] coronary artery without angina pectoris CAD (coronary artery disease) Cardiology follow-up encounter Chronic respiratory failure with hypoxia COPD (chronic obstructive pulmonary disease) COPD (chronic obstructive pulmonary disease) Diabetes Diabetes mellitus, type 2 Diastolic CHF Elevated troponin Essential hypertension Former smoker Former tobacco use High cholesterol History of CAD (coronary artery disease) History of echocardiogram History of GI bleed History of left heart catheterization (LHC) (~03/15/22) History of valvular heart disease HLD (hyperlipidemia) HTN (hypertension) Hypertension Hypothyroidism Kidney disease Loss of hearing Low iron Mild left ventricular hypertrophy Myocardial infarct No natural teeth Non-ST elevation (NSTEMI) myocardial infarction Nonrheumatic aortic (valve) stenosis Obesity Obesity (BMI 30.0-34.9) On home oxygen therapy Polyarthralgia Poor historian Renal insufficiency Shortness of breath Shortness of breath on exertion Symptomatic anemia Symptomatic anemia Syncope Thyroid disease TIA (transient ischemic attack) Upper GI bleed Wears glasses Home Medications ?Medication ?Instructions ?Recorded ?Last Taken ?Type atorvastatin 80 mg tablet 80 mg PO DAILY CHOLESTEROL 05/02/21 02/27/24 History cholecalciferol (vitamin D3) 25 25 mcg PO DAILY vitamin 05/02/21 02/28/24 History mcg (1,000 unit) capsule ipratropium 0.5 mg-albuterol 3 mg 3 ml inhalation 4X/DAY PRN sob 05/02/21 11/18/23 History (2.5 mg base)/3 mL nebulization soln liothyronine 25 mcg tablet 25 mcg PO DAILY THYROID 05/02/21 02/28/24 History tiotropium bromide 18 mcg capsule 18 mcg inhalation DAILY SOB 05/02/21 02/28/24 History with inhalation device (Spiriva with HandiHaler) vitamins A,C,T-mluh-mtdawv 4,296 1 cap PO BID vitamin 12/13/21 02/28/24 History mcg-226 mg-90 mg capsule (PreserVision AREDS) glimepiride 2 mg tablet 2 mg PO DAILY DM #3 tabs 03/09/23 02/28/24 Rx empagliflozin 10 mg tablet 10 mg PO DAILY heart failure 30 04/26/23 12/06/23 Rx (Jardiance) days #30 tabs metoprolol succinate 25 mg 25 mg PO DAILY heart 06/27/23 02/28/24 History tablet,extended release 24 hr pantoprazole 40 mg tablet,delayed 40 mg PO DAILY stomach 06/27/23 02/28/24 History release (Protonix) ferrous sulfate 325 mg (65 mg 325 mg PO BID supplement 11/14/23 02/28/24 History iron) tablet (FeroSul) torsemide 5 mg tablet 5 mg PO DAILY water pill 01/29/24 02/28/24 History furosemide 40 mg tablet 40 mg PO DAILY water pill 02/02/24 02/28/24 History sucralfate 1 gram tablet (Carafate) 1 g PO TID #90 tabs 02/15/24 02/28/24 Rx lisinopril 10 mg tablet 10 mg PO DAILY 02/28/24 02/27/24 History Allergy/AdvReac Type Severity Reaction Status Date / Time aliskiren (From [place]alt[place]a) Allergy Intermediate Other Verified 02/28/24 15:39 valsartan (From [place]a) Allergy Intermediate Other Verified 02/28/24 15:39 codeine AdvReac Upset Verified 02/28/24 15:39 Stomach Family History Mother CVA (cerebral vascular accident) Heart disease Myocardial infarction Hx of CABG Hypertension Father CVA (cerebral vascular accident) Heart disease Surgical History S/P cataract extraction Social History household members: none housing: house Smoking Status: Former smoker how long ago did patient quit smoking: Quit 2011, prior 1 ppd since teen. alcohol intake: former year quit: 2010 substance use type: does not use ROS ROS Narrative General: Denies fever/chills HENT: Denies headache, denies stuffy nose, denies sore throat EYES: Denies changes in vision Resp: Denies cough, has had progressive shortness of breath over the past week Cardiac: Denies chest pain GI: Denies abdominal pain, little bit of constipation, denies nausea/vomiting : Denies changes in urination Extremity: Some chronic lower extremity swelling MSK: Denies weakness Neuro: Denies any numbness/tingling Heme: Denies any bleeding Skin: Denies rashes Psychiatric: No complaints voiced Vital Signs Vital Signs Vital Signs: 02/28/24 15:30 02/28/24 15:33 02/28/24 15:38 Temperature 97.7 F L Temperature Source Oral Pulse Rate 111 H Respiratory Rate 35 H Respiratory Effort Respiratory Depth Respiratory Pattern Blood Pressure 134/45 H Blood Pressure Mean 74 Blood Pressure Source Blood Pressure Position Blood Pressure Location Pulse Ox 100 100 Oxygen Delivery Method Nasal Cannula Nasal Cannula Nasal Cannula Oxygen Flow Rate (L/min) 6 6 6 02/28/24 15:40 02/28/24 15:48 02/28/24 15:51 Temperature Temperature Source Pulse Rate 106 H Respiratory Rate 23 H 21 H Respiratory Effort Short of Breath Labored Respiratory Depth Shallow Respiratory Pattern Tachypnea Tachypnea Blood Pressure Blood Pressure Mean Blood Pressure Source Blood Pressure Position Blood Pressure Location Pulse Ox 100 Oxygen Delivery Method Nasal Cannula Nasal Cannula Oxygen Flow Rate (L/min) 6 4 02/28/24 15:51 02/28/24 16:05 02/28/24 16:15 Temperature Temperature Source Pulse Rate 108 H 113 H Respiratory Rate 12 20 H Respiratory Effort Respiratory Depth Respiratory Pattern Blood Pressure 117/78 Blood Pressure Mean 84 Blood Pressure Source Blood Pressure Position Blood Pressure Location Pulse Ox 100 99 Oxygen Delivery Method Nasal Cannula Oxygen Flow Rate (L/min) 3 02/28/24 16:30 02/28/24 16:37 02/28/24 16:45 Temperature 98.4 F Temperature Source Oral Pulse Rate 117 H 112 H 112 H Respiratory Rate 37 H 24 H 20 H Respiratory Effort Respiratory Depth Respiratory Pattern Blood Pressure 90/57 L 129/47 H Blood Pressure Mean 67 74 Blood Pressure Source Blood Pressure Position Blood Pressure Location Pulse Ox 98 97 99 Oxygen Delivery Method Nasal Cannula Oxygen Flow Rate (L/min) 3 02/28/24 16:47 02/28/24 17:00 02/28/24 17:00 Temperature 98 F Temperature Source Oral Pulse Rate 111 H 101 H 105 H Respiratory Rate 28 H 19 H 13 Respiratory Effort Respiratory Depth Respiratory Pattern Blood Pressure 129/47 H 106/70 106/58 L Blood Pressure Mean 68 82 72 Blood Pressure Source Blood Pressure Position Blood Pressure Location Pulse Ox 99 100 96 Oxygen Delivery Method Nasal Cannula Oxygen Flow Rate (L/min) 3 02/28/24 17:15 02/28/24 17:26 02/28/24 17:27 Temperature 98.0 F Temperature Source Oral Pulse Rate 106 H 106 H 106 H Respiratory Rate 21 H 24 H 22 H Respiratory Effort Respiratory Depth Respiratory Pattern Blood Pressure 106/58 L 101/72 Blood Pressure Mean 74 82 Blood Pressure Source Monitor Blood Pressure Position Sitting Blood Pressure Location Right Arm Pulse Ox 100 99 98 Oxygen Delivery Method Nasal Cannula Oxygen Flow Rate (L/min) 3 02/28/24 17:30 02/28/24 17:37 Temperature 98 F Temperature Source Pulse Rate 103 H 101 H Respiratory Rate 23 H 18 Respiratory Effort Respiratory Depth Respiratory Pattern Blood Pressure 106/70 106/70 Blood Pressure Mean 81 82 Blood Pressure Source Blood Pressure Position Blood Pressure Location Pulse Ox 98 100 Oxygen Delivery Method Oxygen Flow Rate (L/min) Weight Weight: 87.1 kg Body Mass Index (BMI) 31.9 Physical Exam Narrative General: Alert,no apparent distress HEENT: Atraumatic, Eyes: Anicteric, normal conjunctiva, extraocular movements grossly intact Neck: Supple Respiratory: Patient without wheezes or rhonchi, does have slightly increased respiratory effort Cardiovascular: Heart rate low 100s and appears sinus GI: Soft, nontender, is protuberant, no rebound, guarding, rigidity Extremities: Mild bilateral lower extremity edema Musculoskeletal: Moving all extremities Neuro: No overt focal neurological deficits Skin: No rashes appreciated Psych: Cooperative Results Lab / Micro Data 02/28/24 15:48 02/28/24 15:48 Labs: Laboratory Results - last 24 hr 02/28/24 15:48: WBC 3.6 L, RBC 2.16 L, Hgb 6.9 L, Hct 22.2 L, MCV 102.8 H, MCH 31.9, MCHC 31.1 L, RDW Std Deviation 58.4 H, RDW Coeff of John 15.9 H, Plt Count 135 L, MPV 10.1, Immature Gran % (Auto) 1.100 H, Neut % (Auto) 61.7, Lymph % (Auto) 21.8, [place] % (Auto) 10.1 H, Eos % (Auto) 4.7, Baso % (Auto) 0.6, Absolute Neuts (auto) 2.2, Absolute Lymphs (auto) 0.78 L, Nucleated RBC % 0, Sodium 139, Potassium 4.2, Chloride 104, Carbon Dioxide 28.0, Anion Gap 7, BUN 61 H, C reatinine 2.96 H, Estim Creat Clear Calc 18.85, Est GFR (MDRD) Af Amer 26 L, Est GFR (MDRD) Non-Af 22 L, BUN/Creatinine Ratio 20.6 H, Glucose 317 H, Calcium 9.0, Troponin I High Sens 31, B-Natriuretic Peptide 87.6, Blood Type A NEGATIVE, Antibody Screen NEGATIVE, Crossmatch See Detail Micro: Microbiology 02/28/24 15:48 Mucosa - Nose SARS-CoV-2, Influenza & RSV (PCR) - Final 02/28/24 16:12 Stool Stool Occult Blood ([facility]ARY) - Final Imaging Radiology Impression Chest X-Ray 02/28/24 16:05 IMPRESSION: Basilar atelectasis. Electronically Signed: Kevin Lockhart DO at 16:26 EST Reading Location ID and State: [facility] / [place] Tel [phone], Service support , Assessment & Plan Assessment/Plan (1) Acute dyspnea: PLAN: Plan #SOB 2/2 worsening of patient's chronic anemia -Patient's chest x-ray with no acute findings, he has no cough and no wheezing suggestive of COPD exacerbation and additionally BNP is 87.6 and he does not seem to be significantly fluid overloaded so do not think this is a heart failure exacerbation -Patient reports he gets symptomatic with shortness of breath when his hemoglobin is lower than usual -Patient to be transfused in the ED, will give dose of IV Lasix with a transfusion -FOBT negative and patient's hemoglobin similar to what it was 1 week ago's do not think patient has significant acute blood loss but is symptomatic with his anemia -Will continue his PPI # History of gastric and duodenal ulcers -Patient admitted December for GI bleed and had cauterization of gastric ulcer with Dr. Joy at that time, in November he had many nonbleeding superficial gastric ulcers and many nonbleeding duodenal ulcers and was H. pylori negative -Continue PPI -Continue sucralfate -If patient has further significant downtrends can consider inpatient GI workup however given hemoglobin relatively the same over the course of 1 week without patient noting any overt blood loss and FOBT negative could likely follow closely in the office pending progress and hospitalization # History of chronic COPD and chronic hypoxic respiratory failure on 2 to 4 L home O2 nasal cannula -Patient with no wheezing, no cough, no sputum production -Does not seem to be in exacerbation -Continue home inhalers # Chronic heart failure preserved ejection fraction -Daily weights, I's and O's -It is unclear patient is taking torsemide or Lasix at home as both are in his med list -Will continue Lasix while he is here but this will need clarified for patient on discharge -Patient received dose of IV Lasix after blood transfusion # CKD stage IV -Slightly up from baseline but does have wide variations, repeat in the a.m. -Avoid nephrotoxic agents -Daily BMPs -Patient follows with Dr. Washburn on an outpatient basis # History of coronary disease -On atorvastatin -Due to history of ulcer and GI bleed he was taken off of his aspirin #Type 2 diabetes mellitus -Glucose checks and sliding scale insulin -Hold oral hypoglycemics #Hypothyroidism -Continue home medications #Hypertension -BP on the low side in the ED, will hold lisinopril and will have holding parameters for metoprolol #DVT ppx: SCDs Jennifer Pardo, MD Charges/Coding Visit Charges Inpatient E&M: 98918 Init Hosp L2
--- NOTE | 2024-02-28 18:30 | CASEMGMT ---
Care Management Face to Face with patient for initial transition planning/care coordination assessment.? This feature writer introduced self and role at [facility]. Patient sitting on side of bed, alert and oriented. Patient willing to participate in assessment and is able to answer all questions appropriately.? Care providers, pharmacy, and demographics verified. Admitting Diagnosis: ?SOB Other diagnosis history: COPD, CHF, anemia, hypertension, hyperlipidemia PCP: ?Mary Specialists: ?Friend, Kay Preferred Pharmacy: [facility] Insurance: [employer] [facility] Prescription Benefit:? Yes Living Will/HPOA: Patient has both Living Will and HPOA on file LNOK: Daughter Living Arrangements: Patient lives alone in a mobile home. Reports 8 steps to enter, railings on both sides.? Patient reports to being independent at home, can do own ADLs, meals, cleaning and laundry.? Has nurse 1 x per week to set up medication. Transportation: patient does not drive, daughter and friend transport DME: cane, walker, wheelchair, raised toilet seat, glucometer, bedside commode, blood pressure cuff, pulse ox,? and home oxygen thru [facility].? HHC: Active with [facility], nurse comes 1 x per week. SNF/Rehab: [facility] for short term rehab Community Resources: None Behavioral Health History:? None Patient goals: Patient wishes to discharge home.?? Patient states he has no further needs or concerns at this time. CM to follow for discharge planning needs that may arise. Disposition Plan: ?CM to follow for discharge planning needs that may arise Rayna Gallegos, HUC, CHIEF JAILER
[2024-02-28] MEDS: Ipratropium 0.5 MG/2.5 ML SOLUTION INHALATION (19:15)
[2024-02-28] MEDS: Furosemide 40 MG/4 ML Vial IV (21:12)
[2024-02-28] MEDS: Insulin Lispro 100 UNIT/ML INSULN.PEN SC (21:17)
[2024-02-28 22:07] LABS: Bedside Glucose 245 mg/dL (74-106)
[2024-02-29] VITALS (11 sets, daily range): BP systolic 104–110; BP diastolic 44–86; PULSE 80–96; RESP 18–20; TEMP 36.2–36.6; O2SAT 94–100; BMI 30.6
[2024-02-29] MEDS: Ipratropium 0.5 MG/2.5 ML SOLUTION INHALATION ×4 (01:50→19:12)
[2024-02-29] MEDS: Liothyronine 5 MCG Tablet 25 MCG PO (05:46)
[2024-02-29] MEDS: Sucralfate 1 GM Tablet PO ×3 (06:44→16:11)
[2024-02-29] MEDS: 0.9% Saline Lock 10 ML Syringe IV (06:45)
[2024-02-29 07:04] LABS: Bedside Glucose 144 mg/dL (74-106)
[2024-02-29 08:22] LABS: Absolute Lymphocyte Count 1.04 X10^3/uL (0.83-4.51); Absolute Neutrophil Count 2.5 X10^3/uL (2.0-7.7); Basophil# 0.04 X10^3/uL; Basophil% 0.9 % (0-1); Eosinophil# 0.25 X10^3/uL; Eosinophils% 5.7 % (0-5); Hematocrit 23.5 % (40-54); Hemoglobin 7.6 g/dL (13.0-16.5); Lymphocyte # 1.04 X10^3/ul (0.83-4.51); Lymphocyte % 23.8 % (19-41); Mean Corp Hgb Conc 32.3 g/dL (32-36); Mean Corpuscular Hgb 31.8 pg (27.0-32.0); Mean Corpuscular Volume 98.3 fL (80-94); Mean Platelet Vol. 10.5 fl (6.2-12.0); Monocyte# 0.47 X10^3/uL; Monocyte% 10.8 % (0-10); NRBC Flagged by Analyzer 0 % (0-5); Neutrophil # 2.54 X10^3/uL (2.7-7.7); Neutrophil % 58.1 % (47-70); Platelet Count 135 K/mm3 (150-450); Red Blood Count 2.39 M/mm3 (4.6-6.2); White Blood Count 4.4 K/mm3 (4.4-11.0)
[2024-02-29 08:55] LABS: Anion Gap 7 (5-15); BUN 59 mg/dL (7-18); BUN/Creat Ratio 22.6 RATIO (10-20); Calcium,Total 9.1 mg/dL (8.5-10.1); Chloride 104 mmol/L (98-107); Creatinine, Serum 2.61 mg/dL (0.70-1.30); EST Glomerular Filtration Rate 25 mL/min (>60); Est Glom Filt Rate - Afr Amer 30 mL/min (>60); Estimated Creatinine Clearance 20.94 ml/min; Glucose 155 mg/dL (74-106); Potassium 4.3 mmol/L (3.5-5.1); Sodium Level 139 mmol/L (136-145)
[2024-02-29] MEDS: Metoprolol(XL)Succ 25 MG Tablet 12.5 MG PO (09:23)
[2024-02-29] MEDS: Atorvastatin Calcium 80 MG Tablet PO (09:23)
[2024-02-29] MEDS: Pantoprazole Sodium 40 MG Tablet PO (09:24)
[2024-02-29] MEDS: Furosemide 40 MG Tablet PO (09:24)
[2024-02-29] MEDS: Ferrous Sulfate 325 MG Tablet PO ×2 (09:24→16:11)
[2024-02-29] MEDS: Insulin Lispro 100 UNIT/ML INSULN.PEN SC ×3 (12:09→22:06)
[2024-02-29 12:45] LABS: Bedside Glucose 240 mg/dL (74-106)
--- NOTE | 2024-02-29 13:12 | CHAPLAIN ---
Type of Pastoral Visit _x__ Initial Visit ___ Follow-up Visit ___ On-call Visit ___ General Patient Visit ___ Spiritual Assessment ___ Family Conference ___ Bereavement ___ Rapid Response ___ Code Blue ___ Other (describe below) Pastoral Care Referral From _x__ Patient ___ Family ___ Nurse ___ Physician ___ Stamp Mounter ___ Health Educator ___ Other (describe below) Sacrament/Intervention _x__ Active listening ___ Anointing ___ Spiritism ___ Bereavement ___ Communion ___ Leigh exploration ___ ___ Life review _x__ Prayer ___ Reconciliation ___ Sacrament of Sick _x__ Supportive presence ___ Wedding ___ Other (describe below) Pastoral Comments patient gives updates and newest information on his health; pt is looking forward to seeing a granddaughter at [place] who is coming from out of state; prayer welcomed
--- NOTE | 2024-02-29 14:55 | PN_ITS ---
Subjective Subjective Patient seen and examined. He has no active complaints. Review of systems is otherwise negative. Objective Data Objective Data Vital Signs: Vital Signs Temp Pulse Resp BP Pulse Ox O2 Del Method O2 Flow Rate 97.8 F 88 20 H 106/44 L 100 Nasal Cannula 3 02/29/24 09:20 02/29/24 12:56 02/29/24 12:56 02/29/24 09:20 02/29/24 09:20 02/29/24 14:00 02/29/24 14:00 Oxygen Flow Rate (L/min) 3 Oxygen Delivery Method Nasal Cannula Weight: 183 lb 13.848 oz Body Mass Index (BMI) 30.6 Intake & Output: Intake and Output for Last 24 Hours 02/27/24 02/28/24 02/29/24 23:59 23:59 23:59 Intake Total 500 / 700 950 / 950 Output Total 1100 / 1100 Balance 500 / 250 -150 / -150 Lab / Micro Data 02/29/24 08:00 02/29/24 08:00 Labs: Laboratory Results - last 24 hr 02/28/24 15:48: WBC 3.6 L, RBC 2.16 L, Hgb 6.9 L, Hct 22.2 L, MCV 102.8 H, MCH 31.9, MCHC 31.1 L, RDW Std Deviation 58.4 H, RDW Coeff of John 15.9 H, Plt Count 135 L, MPV 10.1, Immature Gran % (Auto) 1.100 H, Neut % (Auto) 61.7, Lymph % (Auto) 21.8, [place] % (Auto) 10.1 H, Eos % (Auto) 4.7, Baso % (Auto) 0.6, Absolute Neuts (auto) 2.2, Absolute Lymphs (auto) 0.78 L, Nucleated RBC % 0, Sodium 139, Potassium 4.2, Chloride 104, Carbon Dioxide 28.0, Anion Gap 7, BUN 61 H, C reatinine 2.96 H, Estim Creat Clear Calc 18.85, Est GFR (MDRD) Af Amer 26 L, Est GFR (MDRD) Non-Af 22 L, BUN/Creatinine Ratio 20.6 H, Glucose 317 H, Calcium 9.0, Troponin I High Sens 31, B-Natriuretic Peptide 87.6, Blood Type A NEGATIVE, Antibody Screen NEGATIVE, Crossmatch See Detail 02/28/24 21:11: POC Glucose 245 H 02/29/24 06:42: POC Glucose 144 H 02/29/24 08:00: WBC 4.4, RBC 2.39 L, Hgb 7.6 L, Hct 23.5 L, MCV 98.3 H, MCH 31.8, MCHC 32.3, RDW Std Deviation 59.0 H, RDW Coeff of John 17.0 H, Plt Count 135 L, MPV 10.5, Immature Gran % (Auto) 0.700, Neut % (Auto) 58.1, Lymph % (Auto) 23.8, [place] % (Auto) 10.8 H, Eos % (Auto) 5.7 H, Baso % (Auto) 0.9, Absolute Neuts (auto) 2.5, Absolute Lymphs (auto) 1.04, Nucleated RBC % 0, Sodium 139, Potassium 4.3, Chloride 104, Carbon Dioxide 28.0, Anion Gap 7, BUN 59 H, Creatinine 2.61 H, Estim Creat Clear Calc 20.94, Est GFR (MDRD) Af Amer 30 L, Est GFR (MDRD) Non-Af 25 L, BUN/Creatinine Ratio 22.6 H, Glucose 155 H, Calcium 9.1 02/29/24 12:07: POC Glucose 240 H Micro: Microbiology 02/28/24 15:48 Mucosa - Nose SARS-CoV-2, Influenza & RSV (PCR) - Final 02/28/24 16:12 Stool Stool Occult Blood ([facility]ARY) - Final Radiography Diagnostic Testing: Radiology Impression Chest X-Ray 02/28/24 16:05 IMPRESSION: Basilar atelectasis. Electronically Signed: Kevin Lockhart DO at 16:26 EST Reading Location ID and State: [facility] / [place] Tel [phone], Service support , Physical Exam Const alert, oriented x3, no apparent distress and well nourished General Appearance: cooperative HEENT normocephalic, head/scalp atraumatic and moist oral mucous membranes Eyes PERRL and EOMs intact bilaterally Neck no lymphadenopathy and supple Lymph Lymphatic: no lymphadenopathy noted Resp normal respiratory effort, normal air movement and clear to auscultation bilaterally Cardio regular rate, regular rhythm, S1 normal heart sound, S2 normal heart sound and no murmurs GI normal to inspection, nondistended, normoactive bowel sounds, soft to palpation, non-tender and non-distended Extremity normal capillary refill, no clubbing, cyanosis or edema and no calf tenderness General Extremity: no tenderness to palpation of joints or extremities Skin General Skin Exam: no breakdown Neuro CN's II-XII intact bilaterally, no focal motor deficits and no sensory deficits noted Motor Exam: strength 5/5 throughout and general weakness Psych thought process normal, cooperative and affect normal Appearance: appropriate Assessment & Plan Assessment/Plan (1) Anemia: (2) Acute dyspnea: (3) Weakness: PLAN: Plan #Hypoxia due to acute on chronic anemia * Patient admitted with a complaint of shortness of breath. Chest x-ray showed no acute cardiopulmonary pathology and BNP was only 87.6. * Hemoglobin was 6.9. He was transfused with a unit of packed red blood cells. FOBT was negative. * On IV pantoprazole. Will consult GI as patient states he has a history of multiple ulcers for which he has had repeated EGDs * Hemoglobin is up to 7.6.. * #History of gastric and duodenal ulcers * He was admitted in December for GI bleed and had cauterization of gastric ulcers. She also had EGD and November which showed multiple superficial nonbleeding gastric ulcers and many nonbleeding duodenal ulcers and H. pylori was negative. * On IV PPI and sucralfate. Consult gastroenterology. #History of COPD and chronic respiratory failure * On 2 to 4 L of oxygen at home. Breathing treatments bronchodilators. Titrate oxygen to maintain saturation above 90%. #Heart failure preserved ejection fraction: Not in exacerbation. Breathing treatments bronchodilators. On Lasix. #History of CAD: Not on aspirin due to GI bleed. On atorvastatin #Type 2 diabetes mellitus: On insulin sliding scale. Accu-Cheks ACHS. #CKD stage IV: Trend creatinine. Follow-up with nephrology on outpatient basis. #Hypothyroidism: On liothyronine #Hypertension: Lisinopril on hold due to low BP. On metoprolol. DVT prophylaxis: SCDs Charges/Coding Visit Charges Inpatient E&M: 79269 Subs Hosp L2
[2024-02-29 16:39] LABS: Bedside Glucose 180 mg/dL (74-106)
--- NOTE | 2024-02-29 18:55 | CON.PCM.GI_ITS ---
HPI Consult Data Date of Consult: 02/29/24 HPI Narrative Reason for Consultation: GI bleed HPI Narrative: BEULAH BRIGHT, is a 83-year-old male with history of COPD, CAD, heart failure preserved ejection fraction, hypothyroidism, diabetes, hypertension presented [facility] ED 02/28/2024 with shortness of breath. Patient's hemoglobin 6.9 in the ED with a baseline of sevens to eights. Given patient's suspected symptomatic anemia pack of blood cell transfusion ordered and hospitalist contacted for admission. 7 days ago his hemoglobin was checked and it was 7.1 and patient has not noted any overt bleeding but over the past week but he has noted increased shortness of breath which he reports happens when his hemoglobin is low. Denies any chest pain, no fevers or chills, no change in his lower extremity swelling. No chest pain, reports he gets constipated because of the iron pills he is taking and denies diarrhea, denies any blood in his stool or any other bleeding he has noted. He is not having any abdominal pain. He is known to GI service due to history of multiple GI bleeds in the stomach small bowel and colon. [facility] Medical History Obesity (BMI 30.0-34.9) Anemia Upper GI bleed History of valvular heart disease Acute on chronic anemia Acute dyspnea Acute on chronic renal insufficiency Acute on chronic anemia Symptomatic anemia Abnormal ECG Elevated troponin Shortness of breath Acute upper gastrointestinal bleeding Essential hypertension Renal insufficiency Non-ST elevation (NSTEMI) myocardial infarction COPD (chronic obstructive pulmonary disease) Loss of hearing No natural teeth Wears glasses Poor historian Thyroid disease Low iron High cholesterol Syncope History of GI bleed Shortness of breath on exertion History of echocardiogram Cardiology follow-up encounter Symptomatic anemia Diabetes Kidney disease Former smoker On home oxygen therapy TIA (transient ischemic attack) Myocardial infarct Hypertension Diastolic CHF Acute and chronic respiratory failure with hypoxia History of CAD (coronary artery disease) Nonrheumatic aortic (valve) stenosis Mild left ventricular hypertrophy History of left heart catheterization (LHC) (~03/15/22) Atherosclerotic heart disease of [place] coronary artery without angina pectoris Aortic valve stenosis, acquired CAD (coronary artery disease) COPD (chronic obstructive pulmonary disease) Polyarthralgia Diabetes mellitus, type 2 Former tobacco use Obesity Hypothyroidism HLD (hyperlipidemia) HTN (hypertension) Chronic respiratory failure with hypoxia Home Medications ?Medication ?Instructions ?Recorded ?Last Taken ?Type atorvastatin 80 mg tablet 80 mg PO DAILY CHOLESTEROL 05/02/21 02/27/24 History cholecalciferol (vitamin D3) 25 25 mcg PO DAILY vitamin 05/02/21 02/28/24 History mcg (1,000 unit) capsule ipratropium 0.5 mg-albuterol 3 mg 3 ml inhalation 4X/DAY PRN sob 05/02/21 11/18/23 History (2.5 mg base)/3 mL nebulization soln liothyronine 25 mcg tablet 25 mcg PO DAILY THYROID 05/02/21 02/28/24 History tiotropium bromide 18 mcg capsule 18 mcg inhalation DAILY SOB 05/02/21 02/28/24 History with inhalation device (Spiriva with HandiHaler) vitamins A,C,O-kcvz-byilzm 4,296 1 cap PO BID vitamin 12/13/21 02/28/24 History mcg-226 mg-90 mg capsule (PreserVision AREDS) glimepiride 2 mg tablet 2 mg PO DAILY DM #3 tabs 03/09/23 02/28/24 Rx empagliflozin 10 mg tablet 10 mg PO DAILY heart failure 30 04/26/23 12/06/23 Rx (Jardiance) days #30 tabs metoprolol succinate 25 mg 25 mg PO DAILY heart 06/27/23 02/28/24 History tablet,extended release 24 hr pantoprazole 40 mg tablet,delayed 40 mg PO DAILY stomach 06/27/23 02/28/24 History release (Protonix) ferrous sulfate 325 mg (65 mg 325 mg PO BID supplement 11/14/23 02/28/24 History iron) tablet (FeroSul) torsemide 5 mg tablet 5 mg PO DAILY water pill 01/29/24 02/28/24 History furosemide 40 mg tablet 40 mg PO DAILY water pill 02/02/24 02/28/24 History sucralfate 1 gram tablet (Carafate) 1 g PO TID #90 tabs 02/15/24 02/28/24 Rx lisinopril 10 mg tablet 10 mg PO DAILY 02/28/24 02/27/24 History Allergy/AdvReac Type Severity Reaction Status Date / Time aliskiren (From Valturna) Allergy Intermediate Other Verified 02/28/24 15:39 valsartan (From Valturna) Allergy Intermediate Other Verified 02/28/24 15:39 codeine AdvReac Upset Verified 02/28/24 15:39 Stomach Family History Mother CVA (cerebral vascular accident) Heart disease Myocardial infarction Hx of CABG Hypertension Father CVA (cerebral vascular accident) Heart disease Surgical History S/P cataract extraction Social History household members: none housing: house Smoking Status: Former smoker how long ago did patient quit smoking: Quit 2010, prior 1 ppd since teen. alcohol intake: former year quit: 2010 substance use type: does not use ROS ROS Narrative General: Denies fever/chills HENT: Denies headache, denies stuffy nose, denies sore throat EYES: Denies changes in vision Resp: Denies cough, has had progressive shortness of breath over the past week Cardiac: Denies chest pain GI: Denies abdominal pain, little bit of constipation, denies nausea/vomiting : Denies changes in urination Extremity: Some chronic lower extremity swelling MSK: Denies weakness Neuro: Denies any numbness/tingling Heme: Denies any bleeding Skin: Denies rashes Psychiatric: No complaints voiced Physical Exam Const alert, oriented x3, no apparent distress and well nourished General Appearance: cooperative HEENT normocephalic, head/scalp atraumatic and moist oral mucous membranes Eyes PERRL and EOMs intact bilaterally Neck no lymphadenopathy and supple Lymph Lymphatic: no lymphadenopathy noted Resp normal respiratory effort, normal air movement and clear to auscultation bilaterally Cardio regular rate, regular rhythm, S1 normal heart sound, S2 normal heart sound and no murmurs GI normal to inspection, nondistended, normoactive bowel sounds, soft to palpation, non-tender and non-distended Extremity normal capillary refill, no clubbing, cyanosis or edema and no calf tenderness General Extremity: no tenderness to palpation of joints or extremities Skin General Skin Exam: no breakdown Neuro CN's II-XII intact bilaterally, no focal motor deficits and no sensory deficits noted Motor Exam: strength 5/5 throughout and general weakness Psych thought process normal, cooperative and affect normal Appearance: appropriate Lab / Micro Data 02/29/24 08:00 02/29/24 08:00 Labs: Laboratory Results - last 24 hr 02/28/24 15:48: Crossmatch See Detail 02/28/24 21:11: POC Glucose 245 H 02/29/24 06:42: POC Glucose 144 H 02/29/24 08:00: WBC 4.4, RBC 2.39 L, Hgb 7.6 L, Hct 23.5 L, MCV 98.3 H, MCH 31.8, MCHC 32.3, RDW Std Deviation 59.0 H, RDW Coeff of John 17.0 H, Plt Count 135 L, MPV 10.5, Immature Gran % (Auto) 0.700, Neut % (Auto) 58.1, Lymph % (Auto) 23.8, Blaine % (Auto) 10.8 H, Eos % (Auto) 5.7 H, Baso % (Auto) 0.9, Absolute Neuts (auto) 2.5, Absolute Lymphs (auto) 1.04, Nucleated RBC % 0, Sodium 139, Potassium 4.3, Chloride 104, Carbon Dioxide 28.0, Anion Gap 7, BUN 59 H, Creatinine 2.61 H, Estim Creat Clear Calc 20.94, Est GFR (MDRD) Af Amer 30 L, Est GFR (MDRD) Non-Af 25 L, BUN/Creatinine Ratio 22.6 H, Glucose 155 H, Calcium 9.1 02/29/24 12:07: POC Glucose 240 H 02/29/24 16:09: POC Glucose 180 H Micro: Microbiology 02/28/24 15:48 Mucosa - Nose SARS-CoV-2, Influenza & RSV (PCR) - Final 02/28/24 16:12 Stool Stool Occult Blood (CLARY) - Final Assessment & Plan Assessment/Plan (1) Acute dyspnea: PLAN: Plan 83-year-old gentleman with SOB 2/2 worsening of patient's chronic anemia -He has a history of gastric and duodenal ulcers -Patient admitted December for GI bleed and had cauterization of gastric ulcer at that time, in November he had many nonbleeding superficial gastric ulcers and many nonbleeding duodenal ulcers and was H. pylori negative -Continue PPI -Continue sucralfate -Keep n.p.o. for possible upper endoscopy in the morning pending anesthesia approval. Charges/Coding Visit Charges Inpatient E&M: 68593 Init Hosp L3
[2024-02-29 22:31] LABS: Bedside Glucose 167 mg/dL (74-106)
[2024-02-29] MEDS: Albuterol 2.5 MG/3 ML VIAL.NEB. INHALATION (23:43)
[2024-03-01] VITALS (15 sets, daily range): BP systolic 91–165; BP diastolic 42–67; PULSE 77–95; RESP 16–22; TEMP 36.1–36.6; O2SAT 98–100; BMI 30.6
[2024-03-01 06:54] LABS: Bedside Glucose 145 mg/dL (74-106)
[2024-03-01 06:56] LABS: Absolute Lymphocyte Count 1.11 X10^3/uL (0.83-4.51); Absolute Neutrophil Count 2.1 X10^3/uL (2.0-7.7); Basophil# 0.03 X10^3/uL; Basophil% 0.8 % (0-1); Eosinophil# 0.28 X10^3/uL; Hematocrit 24.8 % (40-54); Lymphocyte # 1.11 X10^3/ul (0.83-4.51); Lymphocyte % 27.8 % (19-41); Mean Corp Hgb Conc 32.3 g/dL (32-36); Mean Corpuscular Hgb 31.6 pg (27.0-32.0); Mean Platelet Vol. 10.4 fl (6.2-12.0); Monocyte# 0.48 X10^3/uL; NRBC Flagged by Analyzer 0 % (0-5); Neutrophil # 2.05 X10^3/uL (2.7-7.7); Neutrophil % 51.4 % (47-70); Platelet Count 134 K/mm3 (150-450); RBC Distribution Width CV 16.1 % (11.6-14.6); RBC Distribution Width SD 57.1 fl (35.1-43.9); Red Blood Count 2.53 M/mm3 (4.6-6.2)
[2024-03-01 07:07] LABS: AST(SGOT) 15 U/L (15-37)
[2024-03-01 07:10] LABS: International Normalized Ratio 1.2; Prothrombin Time (Protime)PT. 15.4 SECONDS (11.7-14.9)
[2024-03-01 07:12] LABS: Partial Thromboplast Time 29.4 Seconds (24.1-36.2)
[2024-03-01 07:23] LABS: Alanine Aminotransfer ALT/SGPT 21 U/L (16-61); Anion Gap 6 (5-15); BUN 70 mg/dL (7-18); BUN/Creat Ratio 25.2 RATIO (10-20); Calcium,Total 9.1 mg/dL (8.5-10.1); Chloride 106 mmol/L (98-107); Creatinine, Serum 2.78 mg/dL (0.70-1.30); EST Glomerular Filtration Rate 23 mL/min (>60); Est Glom Filt Rate - Afr Amer 28 mL/min (>60); Estimated Creatinine Clearance 19.67 ml/min; Glucose 158 mg/dL (74-106); Potassium 4.5 mmol/L (3.5-5.1); Sodium Level 140 mmol/L (136-145)
[2024-03-01] MEDS: Ipratropium 0.5 MG/2.5 ML SOLUTION INHALATION ×3 (07:35→20:32)
--- NOTE | 2024-03-01 10:01 | PCM.PRE.AN2 ---
ASA Classification* ASA Classification ASA Classification: 4 and E Assessment & Plan Anesthesia* Anesthesia Assessment Anesthesia Assessment: Discussed sedation and/or anesthesia options, risks, benefits, and alternatives with patient/parents/legal guardian/POA. Questions invited. The patient/parents/legal guardian/POA seems to understand and agrees to proceed with anesthesia plan. Reviewed the physical assessment, medical history, allergy history and patient home medications list prior to surgery/procedure/anesthetic and documented any changes. Performed airway and anesthesia risk assessments. Anesthesia Type Anesthesia Type: MAC (see written pre anesthesia records for full assessment) Anesthesia Focused Assessment* Temperature: 97.9 F Pulse Rate: 92 Blood Pressure: 102/52 Respiratory Rate: 17 Pulse Ox: 100 Oxygen Flow Rate (L/min): 2 Airway Assessment Mouth opens: >3 cm Mallampati Score: II Focused Labs Anesthesia Preop lab: CBC WBC 4.0 K/mm3 (4.4-11.0) L 03/01/24 06:10 RBC 2.53 M/mm3 (4.6-6.2) L 03/01/24 06:10 Hgb 8.0 g/dL (13.0-16.5) L 03/01/24 06:10 Hct 24.8 % (40-54) L 03/01/24 06:10 Plt Count 134 K/mm3 (150-450) L 03/01/24 06:10 CHEMISTRY Potassium 4.5 mmol/L (3.5-5.1) 03/01/24 06:10 Sodium 140 mmol/L (136-145) 03/01/24 06:10 Magnesium 2.0 mg/dL (1.6-2.6) 02/03/24 04:50 Phosphorus 2.6 mg/dL (2.5-4.9) 02/03/24 04:50 BUN 70 mg/dL (7-18) H 03/01/24 06:10 Creatinine 2.78 mg/dL (0.70-1.30) H 03/01/24 06:10 Glucose 158 mg/dL (74-106) H 03/01/24 06:10 POC Glucose 145 mg/dL (74-106) H 03/01/24 05:56 TSH 1.620 uIU/mL (0.358-3.740) 03/01/24 06:10 COAG PT 15.4 SECONDS (11.7-14.9) H 03/01/24 06:10 Pre-Assessment Diagnosis/Proposed Procedure Planned Operative Procedure(s): egd Anesthesia History 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 When Was Last Pacemaker Check QUESTION #4 FULL TEXT: You/Your Family Experience fever (hyperthermia) with Anesthesia Last Oral Intake Last Oral intake: Last Oral Intake NPO since 00:00 03/01/24 05:59 Meds taken in AM with sips of water? 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 Female HX of Motion Sickness HX of N/V After Surgery Non-Smoker Duration of Surgery greater than 60 minutes Number of Risk Factors PONV Score Height & Weight Height & Weight: Anesthesia: Height & Weight Height 5 ft 5 in 03/01/24 05:59 Weight: 83.5 kg 03/01/24 05:59 Body Mass Index (BMI) 30.6 03/01/24 05:59 Respiratory Assessment Respiratory Assessment - licensed embalmer supervisor: Respiratory Tract Infection Hx - licensed embalmer supervisor Hx Respiratory Tract Infection No 03/01/24 05:59 STOP Sleep Apnea STOP Sleep Apnea - licensed embalmer supervisor: STOP Sleep Apnea - licensed embalmer supervisor Hx Hypertension Yes 02/29/24 16:10 Hx Sleep Apnea No 02/28/24 18:32 CPAP BIPAP Do you snore loudly (louder No 02/28/24 18:32 than talking or can be heard Do you often feel tired/ No 02/28/24 18:32 fatigued/ sleepy during daytime? Has anyone observed you stop No 02/28/24 18:32 breathing during sleep? STOP Results Negative 02/28/24 18:32 QUESTION #5 FULL TEXT : Do you snore loudly (louder than talking or can be heard through closed doors)? 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 Specify any problems Hx of Preganancy in last 3 No 02/28/24 18:32 Months Nurse Filling Out Transfusion TCALLAHAN 02/28/24 18:32 & Questions: Date: 02/28/24 02/28/24 18:32 Time: 18:49 02/28/24 18:32 Patient unable to answer at this time (ie. 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 INHALATION 2.5 mg Q2H PRN PRN Administration SOB &/OR WHEEZING Atorvastatin Calcium 80 mg 02/29/24 10:00 02/29/24 09:23 Atorvastatin Calcium 80 Mg Tablet PO 80 mg DAILY KALEB Administration Ferrous Sulfate 325 mg 02/29/24 08:00 02/29/24 16:11 Ferrous Sulfate 325 Mg Tablet PO 325 mg BIDCM KALEB Administration Furosemide 40 mg 02/29/24 10:00 02/29/24 09:24 Furosemide 40 Mg Tablet PO 40 mg DAILY KALEB Administration Protocol Glucagon 1 mg 02/28/24 18:31 Glucagon 1 Mg/Ml Syringe IM X1 PRN HYPOGLYCEMIA Protocol Dextrose 250 mls @ 0 mls/hr 02/28/24 18:31 Dextrose 10%-Water IV .Q0M PRN HYPOGLYCEMIA Protocol As Directed Sodium Chloride 100 mls @ 15 mls/hr 02/28/24 18:34 IV .Q6H40M PRN SALINE FLUSH Sodium Chloride 100 mls @ 15 mls/hr 02/28/24 18:34 IV .Q6H40M PRN Saline Flush Sodium Chloride 100 mls @ 15 mls/hr 02/28/24 18:34 IV .Q6H40M PRN Additional IVPB Infusion Insulin Human Lispro 0 unit 02/28/24 22:00 03/01/24 06:53 Insulin Lispro 100 Unit/Ml Insuln.Pen SC Not Given ACHS KALEB Protocol Ipratropium Adena 0.5 mg 02/28/24 18:45 03/01/24 07:35 Ipratropium 0.5 Mg/2.5 Ml Solution INHALATION 0.5 mg Q6HWA.RT KALEB Administration Liothyronine Sodium 25 mcg 02/29/24 06:00 03/01/24 06:52 Liothyronine 5 Mcg Tablet PO Not Given DAILY@0600 KALEB Melatonin 3 mg 02/28/24 18:31 Melatonin 3 Mg Tablet PO QHS PRN PRN INSOMNIA Metoprolol Succinate 12.5 mg 02/29/24 10:00 02/29/24 09:23 Metoprolol(Xl)Succ 25 Mg Tablet PO 12.5 mg DAILY KALEB Administration Protocol Ondansetron HCl 4 mg 02/28/24 18:31 Ondansetron 4 Mg/2 Ml Vial IV Q8H PRN PRN NAUSEA/VOMITING Pantoprazole Sodium 40 mg 02/29/24 10:00 02/29/24 09:24 Pantoprazole Sodium 40 Mg Tablet PO 40 mg DAILY KALEB Administration Senna/Docusate Sodium 2 tablet 02/28/24 18:31 Senna/Docusate Sodium 1 Tablet PO BID PRN PRN Constipation Sodium Chloride 10 - 40 ml 02/28/24 18:34 02/29/24 06:45 0.9% Saline Lock 10 Ml Syringe IV 30 ml UD PRN Administration SALINE FLUSH Sucralfate 1 gm 02/29/24 07:00 03/01/24 06:52 Sucralfate 1 Gm Tablet PO Not Given TID@0700,1100,1600 [facility] Medical History Obesity (BMI 30.0-34.9) Anemia Upper GI bleed History of valvular heart disease Acute on chronic anemia Acute dyspnea Acute on chronic renal insufficiency Acute on chronic anemia Symptomatic anemia Abnormal ECG Elevated troponin Shortness of breath Acute upper gastrointestinal bleeding Essential hypertension Renal insufficiency Non-ST elevation (NSTEMI) myocardial infarction COPD (chronic obstructive pulmonary disease) Loss of hearing No natural teeth Wears glasses Poor historian Thyroid disease Low iron High cholesterol Syncope History of GI bleed Shortness of breath on exertion History of echocardiogram Cardiology follow-up encounter Symptomatic anemia Diabetes Kidney disease Former smoker On home oxygen therapy TIA (transient ischemic attack) Myocardial infarct Hypertension Diastolic CHF Acute and chronic respiratory failure with hypoxia History of CAD (coronary artery disease) Nonrheumatic aortic (valve) stenosis Mild left ventricular hypertrophy History of left heart catheterization (LHC) (~03/15/22) Atherosclerotic heart disease of [place] coronary artery without angina pectoris Aortic valve stenosis, acquired CAD (coronary artery disease) COPD (chronic obstructive pulmonary disease) Polyarthralgia Diabetes mellitus, type 2 Former tobacco use Obesity Hypothyroidism HLD (hyperlipidemia) HTN (hypertension) Chronic respiratory failure with hypoxia Home Medications ?Medication ?Instructions ?Recorded ?Last Taken ?Type atorvastatin 80 mg tablet 80 mg PO DAILY CHOLESTEROL 05/02/21 02/27/24 History cholecalciferol (vitamin D3) 25 25 mcg PO DAILY vitamin 05/02/21 02/28/24 History mcg (1,000 unit) capsule ipratropium 0.5 mg-albuterol 3 mg 3 ml inhalation 4X/DAY PRN sob 05/02/21 11/18/23 History (2.5 mg base)/3 mL nebulization soln liothyronine 25 mcg tablet 25 mcg PO DAILY THYROID 05/02/21 02/28/24 History tiotropium bromide 18 mcg capsule 18 mcg inhalation DAILY SOB 05/02/21 02/28/24 History with inhalation device (Spiriva with HandiHaler) vitamins A,C,E-bboj-yifric 4,296 1 cap PO BID vitamin 12/13/21 02/28/24 History mcg-226 mg-90 mg capsule (PreserVision AREDS) glimepiride 2 mg tablet 2 mg PO DAILY DM #3 tabs 03/09/23 02/28/24 Rx empagliflozin 10 mg tablet 10 mg PO DAILY heart failure 30 04/26/23 12/06/23 Rx (Jardiance) days #30 tabs metoprolol succinate 25 mg 25 mg PO DAILY heart 06/27/23 02/28/24 History tablet,extended release 24 hr pantoprazole 40 mg tablet,delayed 40 mg PO DAILY stomach 06/27/23 02/28/24 History release (Protonix) ferrous sulfate 325 mg (65 mg 325 mg PO BID supplement 11/14/23 02/28/24 History iron) tablet (FeroSul) torsemide 5 mg tablet 5 mg PO DAILY water pill 01/29/24 02/28/24 History furosemide 40 mg tablet 40 mg PO DAILY water pill 02/02/24 02/28/24 History sucralfate 1 gram tablet (Carafate) 1 g PO TID #90 tabs 02/15/24 02/28/24 Rx lisinopril 10 mg tablet 10 mg PO DAILY 02/28/24 02/27/24 History Allergy/AdvReac Type Severity Reaction Status Date / Time aliskiren (From Valturna) Allergy Intermediate Other Verified 02/28/24 15:39 valsartan (From Valturna) Allergy Intermediate Other Verified 02/28/24 15:39 codeine AdvReac Upset Verified 02/28/24 15:39 Stomach Family History Mother CVA (cerebral vascular accident) Heart disease Myocardial infarction Hx of CABG Hypertension Father CVA (cerebral vascular accident) Heart disease Surgical History S/P cataract extraction Social History household members: none housing: house Smoking Status: Former smoker how long ago did patient quit smoking: Quit 2011, prior 1 ppd since teen. alcohol intake: former year quit: 2010 substance use type: does not use Review of Systems (Anesthesia) ROS Narrative System reviewed and no additional complaints, except as documented.
--- NOTE | 2024-03-01 10:23 | PCM.POST.ANE ---
Anesthesia: Postop Eval I Current Vital Signs Temperature: 97 F Pulse Rate: 87 Blood Pressure: 165/67 Respiratory Rate: 16 Pulse Ox: 98 Assessment Airway patent: Yes Spontaneous unlabored respirations: Yes nausea: No Vomiting: No Anesthesia Complication: No Fluid Hydration Crystalloid volume administer (ml): 10 Total IV fluid infused: 10 Progress Note Anesthesia document: Postop Eval 1 completed: Yes
--- NOTE | 2024-03-01 10:24 | PCM.POSTANE2 ---
Anesthesia Postop Eval I Sum Postop Eval Completion status Anesthesia document: Postop Eval 1 completed: Yes Anesthesia Postop Eval I Summary Anesthesia Postop Eval I Summary: Anesthesia Postop Eval I: Assessment Summary Airway patent Yes 03/01/24 10:23 Spontaneous unlabored Yes 03/01/24 10:23 respirations Mental status nausea No 03/01/24 10:23 Vomiting No 03/01/24 10:23 Anesthesia Postop Eval I: Fluid Summary Crystalloid volume administer 10 03/01/24 10:23 (ml) Colloids volume administered ( ml) Blood Product volume administered (ml) Total IV fluid infused 10 03/01/24 10:23 Anesthesia Postop Eval I: Summary Notes Anesthesia Complication No 03/01/24 10:23 Anesthesia Complication Comment: Post-operative progress note Anesthesia: Postop Eval II Evaluation Mental status: Awake Pain Level: 0 nausea: No Vomiting: No
--- NOTE | 2024-03-01 10:29 | OP.EGD_ITS ---
Patient Name: Corona West Procedure Date: 03/01/2024 10:12 AM Date of : 1940 Age: 83 Procedure: Upper GI endoscopy Indications: Iron deficiency anemia Providers: Fredy Joy DO Medicines: Monitored Anesthesia Care Patient Profile: This is an 83 year old male. Refer to note in patient chart for documentation of history and physical. Patient has symptoms. His most recent EGD for treatment of bleeding. Complications: No immediate complications. Procedure: Pre-Anesthesia Assessment: - Prior to the procedure, a History and Physical was performed, and patient medications and allergies were reviewed. The patient is competent. The risks and benefits of the procedure and the sedation options and risks were discussed with the patient. All questions were answered and informed consent was obtained. Patient identification and proposed procedure were verified by the physician in the pre-procedure area. Mental Status Examination: alert and oriented. Airway Examination: normal oropharyngeal airway and neck mobility. Respiratory Examination: clear to auscultation. CV Examination: normal. Prophylactic Antibiotics: The patient does not require prophylactic antibiotics. Prior Anticoagulants: The patient has taken no anticoagulant or antiplatelet agents except for NSAID medication. ASA Grade Assessment: III - A patient with severe systemic disease. After reviewing the risks and benefits, the patient was deemed in satisfactory condition to undergo the procedure. The anesthesia plan was to use monitored anesthesia care (MAC). Immediately prior to administration of medications, the patient was re-assessed for adequacy to receive sedatives. The heart rate, respiratory rate, oxygen saturations, blood pressure, adequacy of pulmonary ventilation, and response to care were monitored throughout the procedure. The physical status of the patient was re-assessed after the procedure. After obtaining informed consent, the endoscope was passed under direct vision. Throughout the procedure, the patient's blood pressure, pulse, and oxygen saturations were monitored continuously. The Endoscope was introduced through the mouth, and advanced to the second part of duodenum. The upper GI endoscopy was accomplished without difficulty. The patient tolerated the procedure well. Scope In: 10:16:20 AM Scope Out: 10:20:52 AM Total Procedure Duration Time 0 hours 4 minutes 32 seconds Findings: The examined esophagus was normal. Patchy severe inflammation with hemorrhage characterized by adherent blood, erosions, erythema and friability was found in the gastric antrum. Coagulation for hemostasis using heater probe was successful. Estimated blood loss was minimal. Two oozing linear duodenal ulcers with pigmented material were found in the duodenal bulb and in the first portion of the duodenum. The largest lesion was 8 mm in largest dimension. Coagulation for hemostasis using heater probe was successful. Estimated blood loss was minimal. Impression: - Normal esophagus. - Chronic gastritis with hemorrhage. Treated with a heater probe. - Oozing duodenal ulcers with pigmented material. Treated with a heater probe. - No specimens collected. Recommendation: - [facility]. - Use sucralfate tablets 1 gram PO QID for 3 months. - Use Protonix (pantoprazole) 40 mg PO BID for the rest of the patient's life. - Continue present medications. Procedure Code(s): --- Professional --- 32368, Esophagogastroduodenoscopy, flexible, transoral; with control of bleeding, any method CPT copyright 2021 [employer]. All rights reserved. The codes documented in this report are preliminary and upon tax assessor review may be revised to meet current compliance requirements. Fredy Joy DO 03/01/2024 10:28:47 AM This report has been signed electronically. Number of Addenda: 0 Note Initiated On: 03/01/2024 10:12 AM
--- NOTE | 2024-03-01 10:29 | OP.CCLET_ITS ---
03/01/2024 Emeka Hernandez MD [address] [id number] Re : Upper GI endoscopy procedure for Corona West Dear Dr. Hernandez This procedure was performed on Friday, March 01, 2024. My impressions and recommendations are as follows: Impressions : - Normal esophagus. - Chronic gastritis with hemorrhage. Treated with a heater probe. - Oozing duodenal ulcers with pigmented material. Treated with a heater probe. - No specimens collected. Recommendations : - [facility]. - Use sucralfate tablets 1 gram PO QID for 3 months. - Use Protonix (pantoprazole) 40 mg PO BID for the rest of the patient's life. - Continue present medications. My findings are described in the full procedure note, which is enclosed. If I can be of further assistance, please feel free to contact me at . Sincerely, Fredy Joy, 03/01/2024 10:28:47 AM This report has been signed electronically.
[2024-03-01] MEDS: Pantoprazole Sodium 40 MG Tablet PO (12:02)
[2024-03-01] MEDS: Ferrous Sulfate 325 MG Tablet PO ×2 (12:03→17:18)
[2024-03-01] MEDS: Furosemide 40 MG Tablet PO (12:03)
[2024-03-01] MEDS: Atorvastatin Calcium 80 MG Tablet PO (12:03)
[2024-03-01] MEDS: Metoprolol(XL)Succ 25 MG Tablet 12.5 MG PO (12:04)
[2024-03-01] MEDS: Insulin Lispro 100 UNIT/ML INSULN.PEN SC ×3 (12:05→21:19)
[2024-03-01] MEDS: Sucralfate 1 GM Tablet PO ×2 (12:11→17:18)
--- NOTE | 2024-03-01 12:11 | PN_ITS ---
Subjective Subjective Patient seen and examined. He had no active complaints. Review of systems is otherwise negative. He has remained hemodynamically stable. He is for EGD today Objective Data Objective Data Vital Signs: Vital Signs Temp Pulse Resp BP Pulse Ox O2 Del Method O2 Flow Rate 97.9 F 90 22 H 128/54 H 99 Nasal Cannula 2 03/01/24 11:39 03/01/24 12:04 03/01/24 11:39 03/01/24 11:39 03/01/24 11:39 03/01/24 11:39 03/01/24 11:39 Oxygen Flow Rate (L/min) 2 Oxygen Delivery Method Nasal Cannula Weight: 184 lb 1.376 oz Body Mass Index (BMI) 30.6 Intake & Output: Intake and Output for Last 24 Hours 02/28/24 02/29/24 03/01/24 23:59 23:59 23:59 Intake Total 500 / 700 1350 / 1800 450 / 450 Output Total 1100 / 1100 350 / 350 Balance 500 / 250 250 / 700 100 / 100 Lab / Micro Data 03/01/24 06:10 03/01/24 06:10 Labs: Laboratory Results - last 24 hr 02/29/24 12:07: POC Glucose 240 H 02/29/24 16:09: POC Glucose 180 H 02/29/24 22:04: POC Glucose 167 H 03/01/24 05:56: POC Glucose 145 H 03/01/24 06:10: WBC 4.0 L, RBC 2.53 L, Hgb 8.0 L, Hct 24.8 L, MCV 98.0 H, MCH 31.6, MCHC 32.3, RDW Std Deviation 57.1 H, RDW Coeff of John 16.1 H, Plt Count 134 L, MPV 10.4, Immature Gran % (Auto) 1.000 H, Neut % (Auto) 51.4, Lymph % (Auto) 27.8, [place] % (Auto) 12.0 H, Eos % (Auto) 7.0 H, Baso % (Auto) 0.8, Absolute Neuts (auto) 2.1, Absolute Lymphs (auto) 1.11, Nucleated RBC % 0, PT 15.4 H, INR 1.2, APTT 29.4, Sodium 140, Potassium 4.5, Chloride 106, Carbon Dioxide 29.0, Anion Gap 6, BUN 70 H, Creatinine 2.78 H, Estim Creat Clear Calc 19.67, Est GFR (MDRD) Af Amer 28 L, Est GFR (MDRD) Non-Af 23 L, BUN/Creatinine Ratio 25.2 H, Glucose 158 H, Calcium 9.1, AST 15, ALT 21, TSH 1.620 Micro: Microbiology 02/28/24 15:48 Mucosa - Nose SARS-CoV-2, Influenza & RSV (PCR) - Final 02/28/24 16:12 Stool Stool Occult Blood (CLARY) - Final Physical Exam Const alert, oriented x3, no apparent distress and well nourished General Appearance: cooperative HEENT normocephalic, head/scalp atraumatic and moist oral mucous membranes Eyes PERRL and EOMs intact bilaterally Neck no lymphadenopathy and supple Lymph Lymphatic: no lymphadenopathy noted Resp normal respiratory effort, normal air movement and clear to auscultation bilaterally Cardio regular rate, regular rhythm, S1 normal heart sound, S2 normal heart sound and no murmurs GI normal to inspection, nondistended, normoactive bowel sounds, soft to palpation, non-tender and non-distended Extremity normal capillary refill, no clubbing, cyanosis or edema and no calf tenderness General Extremity: no tenderness to palpation of joints or extremities Skin General Skin Exam: no breakdown Neuro CN's II-XII intact bilaterally, no focal motor deficits and no sensory deficits noted Motor Exam: strength 5/5 throughout and general weakness Psych thought process normal, cooperative and affect normal Appearance: appropriate Assessment & Plan Assessment/Plan (1) Anemia: (2) Acute dyspnea: (3) Weakness: PLAN: Plan #Hypoxia due to acute on chronic anemia * Patient admitted with a complaint of shortness of breath. Chest x-ray showed no acute cardiopulmonary pathology and BNP was only 87.6. * Hemoglobin was 6.9. He was transfused with a unit of packed red blood cells. FOBT was negative. * On IV pantoprazole. Will consult GI as patient states he has a history of multiple ulcers for which he has had repeated EGDs * Hemoglobin is 8 today. * #History of gastric and duodenal ulcers * He was admitted in December for GI bleed and had cauterization of gastric ulcers. She also had EGD and November which showed multiple superficial nonbleeding gastric ulcers and many nonbleeding duodenal ulcers and H. pylori was negative. * On IV PPI and sucralfate. * GI on board. For EGD today #History of COPD and chronic respiratory failure * On 2 to 4 L of oxygen at home. Breathing treatments bronchodilators. Titrate oxygen to maintain saturation above 90%. #Heart failure preserved ejection fraction: Not in exacerbation. Breathing treatments bronchodilators. On Lasix. #History of CAD: Not on aspirin due to GI bleed. On atorvastatin #Type 2 diabetes mellitus: On insulin sliding scale. Accu-Cheks ACHS. #CKD stage IV: Trend creatinine. Follow-up with nephrology on outpatient basis. #Hypothyroidism: On liothyronine #Hypertension: Lisinopril on hold due to low BP. On metoprolol. DVT prophylaxis: SCDs Disposition: for DC pending EGD Charges/Coding Visit Charges Inpatient E&M: 34950 Subs Hosp L2
[2024-03-01] MEDS: Senna/Docusate Sodium 1 Tablet 2 TABLET PO (12:22)
[2024-03-01 12:27] LABS: Bedside Glucose 160 mg/dL (74-106)
[2024-03-01 17:03] LABS: Bedside Glucose 217 mg/dL (74-106)
[2024-03-02 01:12] LABS: Bedside Glucose 157 mg/dL (74-106)
[2024-03-02 03:30] VITALS: BP 102/50; PULSE 90; RESP 18; TEMP 36.7; O2SAT 98
[2024-03-02 04:41] VITALS: BMI 30.6
[2024-03-02 04:48] LABS: Absolute Lymphocyte Count 1.17 X10^3/uL (0.83-4.51); Absolute Neutrophil Count 2.6 X10^3/uL (2.0-7.7); Basophil# 0.02 X10^3/uL; Basophil% 0.4 % (0-1); Eosinophil# 0.29 X10^3/uL; Eosinophils% 6.3 % (0-5); Hematocrit 26.5 % (40-54); Hemoglobin 8.2 g/dL (13.0-16.5); Lymphocyte # 1.17 X10^3/ul (0.83-4.51); Lymphocyte % 25.5 % (19-41); Mean Corp Hgb Conc 30.9 g/dL (32-36); Mean Corpuscular Hgb 30.7 pg (27.0-32.0); Mean Corpuscular Volume 99.3 fL (80-94); Mean Platelet Vol. 10.2 fl (6.2-12.0); Monocyte# 0.46 X10^3/uL; NRBC Flagged by Analyzer 0 % (0-5); Neutrophil # 2.62 X10^3/uL (2.7-7.7); Neutrophil % 57.1 % (47-70); Platelet Count 142 K/mm3 (150-450); RBC Distribution Width CV 15.8 % (11.6-14.6); RBC Distribution Width SD 56.8 fl (35.1-43.9); Red Blood Count 2.67 M/mm3 (4.6-6.2); White Blood Count 4.6 K/mm3 (4.4-11.0)
[2024-03-02 05:17] LABS: Anion Gap 5 (5-15); BUN 74 mg/dL (7-18); BUN/Creat Ratio 29.1 RATIO (10-20); Calcium,Total 9.2 mg/dL (8.5-10.1); Chloride 106 mmol/L (98-107); Creatinine, Serum 2.54 mg/dL (0.70-1.30); EST Glomerular Filtration Rate 26 mL/min (>60); Est Glom Filt Rate - Afr Amer 31 mL/min (>60); Estimated Creatinine Clearance 21.53 ml/min; Glucose 156 mg/dL (74-106); Potassium 4.7 mmol/L (3.5-5.1); Sodium Level 140 mmol/L (136-145)
[2024-03-02] MEDS: Liothyronine 5 MCG Tablet 25 MCG PO (06:14)
[2024-03-02] MEDS: Sucralfate 1 GM Tablet PO ×2 (06:15→11:11)
[2024-03-02] MEDS: Ipratropium 0.5 MG/2.5 ML SOLUTION INHALATION (07:01)
[2024-03-02 07:04] LABS: Bedside Glucose 136 mg/dL (74-106)
[2024-03-02 07:32] VITALS: PULSE 81; RESP 20; O2SAT 97
[2024-03-02 09:22] VITALS: BP 114/56; PULSE 96; RESP 20; TEMP 36.5; O2SAT 98
[2024-03-02 09:23] VITALS: PULSE 96
[2024-03-02] MEDS: Metoprolol(XL)Succ 25 MG Tablet 12.5 MG PO (09:23)
[2024-03-02] MEDS: Pantoprazole Sodium 40 MG Tablet PO (09:24)
[2024-03-02] MEDS: Ferrous Sulfate 325 MG Tablet PO (09:24)
[2024-03-02] MEDS: Atorvastatin Calcium 80 MG Tablet PO (09:24)
[2024-03-02] MEDS: Furosemide 40 MG Tablet PO (09:24)
[2024-03-02] MEDS: Insulin Lispro 100 UNIT/ML INSULN.PEN SC (11:11)
[2024-03-02 11:30] LABS: Bedside Glucose 157 mg/dL (74-106)
--- NOTE | 2024-03-02 11:54 | DS.PCM_ITS ---
Providers Date of Admission: 02/28/24 Date of Discharge: 03/02/24 Primary Care Physician: Dr. Emeka Hernandez MD Consultations 02/29/24 11:27 Consult: Gastroenterology Routine Consulting Provider: [facility] Reason for Consult: acute on chronic anemia EMERGENT Consult: No MD Notified: Yes Date Notified: 02/29/24 Time Notified: 11:27 Method of Notification: Text Reason For Visit: SOB, ANEMIA Diagnosis Discharge Diagnosis (1) Anemia: Status: Acute Code(s): D64.9 - Anemia, unspecified (2) Acute dyspnea: Status: Acute Code(s): R06.00 - Dyspnea, unspecified (3) Weakness: Status: Acute Code(s): R53.1 - Weakness Plan #Hypoxia due to acute on chronic anemia * Patient admitted with a complaint of shortness of breath. Chest x-ray showed no acute cardiopulmonary pathology and BNP was only 87.6. * Hemoglobin was 6.9. He was transfused with a unit of packed red blood cells. FOBT was negative. * On IV pantoprazole. Will consult GI as patient states he has a history of multiple ulcers for which he has had repeated EGDs * Hemoglobin is 8 today. * #History of gastric and duodenal ulcers * He was admitted in December for GI bleed and had cauterization of gastric ulcers. She also had EGD and November which showed multiple superficial nonbleeding gastric ulcers and many nonbleeding duodenal ulcers and H. pylori was negative. * On IV PPI and sucralfate. * GI on board. For EGD today #History of COPD and chronic respiratory failure * On 2 to 4 L of oxygen at home. Breathing treatments bronchodilators. Titrate oxygen to maintain saturation above 90%. #Heart failure preserved ejection fraction: Not in exacerbation. Breathing treatments bronchodilators. On Lasix. #History of CAD: Not on aspirin due to GI bleed. On atorvastatin #Type 2 diabetes mellitus: On insulin sliding scale. Accu-Cheks ACHS. #CKD stage IV: Trend creatinine. Follow-up with nephrology on outpatient basis. #Hypothyroidism: On liothyronine #Hypertension: Lisinopril on hold due to low BP. On metoprolol. DVT prophylaxis: SCDs Disposition: for DC pending EGD Medications at Discharge Home Medications atorvastatin 80 mg tablet 80 mg PO DAILY CHOLESTEROL 02/21/22 cholecalciferol (vitamin D3) 25 mcg (1,000 unit) capsule 25 mcg PO DAILY vitamin 05/02/21 ipratropium 0.5 mg-albuterol 3 mg (2.5 mg base)/3 mL nebulization soln 3 ml inhalation 4X/DAY PRN sob 05/02/21 liothyronine 25 mcg tablet 25 mcg PO DAILY THYROID 05/02/21 tiotropium bromide 18 mcg capsule with inhalation device (Spiriva with HandiHaler) 18 mcg inhalation DAILY SOB 05/02/21 vitamins A,C,T-eimi-[id number] 4,296 mcg-226 mg-90 mg capsule (PreserVision AREDS) 1 cap PO BID vitamin 12/13/21 glimepiride 2 mg tablet 2 mg PO DAILY DM #3 tabs 03/09/23 empagliflozin 10 mg tablet (Jardiance) 10 mg PO DAILY heart failure 30 days #30 tabs 04/26/23 metoprolol succinate 25 mg tablet,extended release 24 hr 25 mg PO DAILY heart 06/27/23 ferrous sulfate 325 mg (65 mg iron) tablet (FeroSul) 325 mg PO BID supplement 11/14/23 torsemide 5 mg tablet 5 mg PO DAILY water pill 01/29/24 furosemide 40 mg tablet 40 mg PO DAILY water pill 02/02/24 lisinopril 10 mg tablet 10 mg PO DAILY 02/28/24 pantoprazole 40 mg tablet,delayed release 40 mg PO BID #60 tabs 03/02/24 sucralfate 1 gram tablet 1 g PO Q6H 30 days #120 tabs 03/02/24 Hospital Course Operations None Procedures EGD Summary of Care Provided Minutes Spent on Discharge: 55 Hospital Course: Patient is an 83-year-old male with a Past medical history as outlined was admitted through the ED on 02/28/2024 with a complaint of shortness of breath. He was found to have hemoglobin of 6.9 with his baseline being around 8. He was admitted and managed for shortness of breath due to symptomatic anemia. He was transfused with a unit of packed red blood cells. Gastroenterology was consulted due to his history of GI bleed and bleeding peptic ulcers. He had EGD which showed normal esophagus with chronic gastritis with hemorrhage which was treated with a heater probe and oozing duodenal ulcers with pigmented material which was treated with a heater probe. He was placed on p.o. pantoprazole 40 mg twice daily which she was to take for the rest of his life and was also placed on p.o. sucralfate 1 g 4 times daily to take for 3 months. Patient did well after the EGD. Hemoglobin on day of discharge was 8.2 which was around his baseline. He was discharged home on 03/02/2024 and is follow-up with his primary care doctor within 1 to 2 weeks. He is also to follow-up with gastroenterology within 2 weeks. Patient was seen and examined prior to discharge. He had no active complaints and had an uneventful night. Review of systems otherwise negative. Labs and vitals reviewed. Home medication reviewed and reconciled. Physical Exam Const alert, oriented x3, no apparent distress and well nourished General Appearance: cooperative and comfortable Orientation / Consciousness: awake HEENT normocephalic, head/scalp atraumatic, hearing grossly normal bilaterally, moist oral mucous membranes and oropharynx normal Mouth: oral and palatal mucosa normal Eyes PERRL and EOMs intact bilaterally Neck no lymphadenopathy and supple Lymph Lymphatic: no lymphadenopathy noted Resp normal respiratory effort, normal air movement and clear to auscultation bilaterally Cardio regular rate, regular rhythm, S1 normal heart sound, S2 normal heart sound and no murmurs GI normal to inspection, nondistended, normoactive bowel sounds, soft to palpation, non-tender and non-distended Extremity normal capillary refill, no clubbing, cyanosis or edema and no calf tenderness General Extremity: no tenderness to palpation of joints or extremities Skin no rashes or lesions noted General Skin Exam: no breakdown Neuro oriented x3, CN's II-XII intact bilaterally, moves all extremities, no focal motor deficits and no sensory deficits noted Sensorium / Orientation: awake and alert Motor Exam: strength 5/5 throughout Psych thought process normal, cooperative and affect normal Appearance: appropriate Weight / BMI Weight Weight: 184 lb 1.376 oz Body Mass Index (BMI) 30.6 ABG / Lab / Microbiology Data 03/02/24 04:21 03/02/24 04:21 Laboratory: Laboratory Results - last 24 hr 03/01/24 16:42: POC Glucose 217 H 03/01/24 21:17: POC Glucose 157 H 03/02/24 04:21: WBC 4.6, RBC 2.67 L, Hgb 8.2 L, Hct 26.5 L, MCV 99.3 H, MCH 30.7, MCHC 30.9 L, RDW Std Deviation 56.8 H, RDW Coeff of John 15.8 H, Plt Count 142 L, MPV 10.2, Immature Gran % (Auto) 0.700, Neut % (Auto) 57.1, Lymph % (Auto) 25.5, [place] % (Auto) 10.0, Eos % (Auto) 6.3 H, Baso % (Auto) 0.4, Absolute Neuts (auto) 2.6, Absolute Lymphs (auto) 1.17, Nucleated RBC % 0, Sodium 140, Potassium 4.7, Chloride 106, Carbon Dioxide 29.0, Anion Gap 5, BUN 74 H, C reatinine 2.54 H, Estim Creat Clear Calc 21.53, Est GFR (MDRD) Af Amer 31 L, Est GFR (MDRD) Non-Af 26 L, BUN/Creatinine Ratio 29.1 H, Glucose 156 H, Calcium 9.2 03/02/24 06:13: POC Glucose 136 H 03/02/24 11:10: POC Glucose 157 H Microbiology: Microbiology 02/28/24 15:48 Mucosa - Nose SARS-CoV-2, Influenza & RSV (PCR) - Final 02/28/24 16:12 Stool Stool Occult Blood (CLARY) - Final D/C Instructions Discharge Diet: Low fat / Low cholesterol Discharge Activity: Return to Normal Activity Weight Bearing Status: Weight bearing as tolerated Call your doctor if you observe: Fever of 101 or Higher, Shortness of breath, Dizziness, Swelling in the ankles and Chest pain DC O2, CPAP, BIPAP Needs RN Home O2 Qualification: Home O2 Qualification: Is the patient on home oxygen Yes 03/02/24 12:34 Home O2 Qualification: AT REST 1-Pulse Ox at rest 98 03/02/24 12:34 1- Oxygen flow rate at rest 2 03/02/24 12:34 Home O2 Qualification: WITH AMBULATION 1- Pulse Ox with ambulation 95 03/02/24 12:34 1- Oxygen Flow Rate with 2 03/02/24 12:34 ambulation Home O2 Discharge instructions: No DC home with Oxygen: No Meaningful Use Info Meaningful Use Meaningful Use Diagnoses (Choose all that apply): None applicable Ischemic Stroke Statin Dosing Therapy Reference: STATIN DOSE THERAPY REFERENCE: * Patients > 75 years receive moderate or high dose statin therapy. * Patients 75 years or YOUNGER should receive HIGH intensity statin dose unless contraindicated. You will be required to document reason for non-treatment if statin daily dose does not meet guidelines. HIGH DOSE STATIN THERAPY DAILY Atorvastatin > than or = to 40 mg Rosuvastatin > than or = to 20 mg Amlodipine + Atorvastatin > than or = to 2.5/40 mg Ezetimibe + Simvastatin 10/80 mg Simvastatin 80mg Discharge Plan Admission Admit Date/Time: 02/28/24 17:39 Primary Reason for Your Visit: anemia, GI bleed Attending Provider: Sarai Alcantara Primary Care Provider: Emeka Hernandez Consulting Providers: Jennifer Pardo Instructions Patient Instructions: Anemia, H Pylori Ulcers Ch, ED Lower GI Bleeding (Stable) Discharge Orders/Prescriptions Prescriptions: New pantoprazole 40 mg tablet,delayed release (DR/EC) 40 mg PO BID Qty: 60 3RF sucralfate 1 gram tablet 1 g PO Q6H 30 Days Qty: 120 3RF Continued atorvastatin 80 mg tablet 80 mg PO DAILY ipratropium-albuterol 0.5 mg-3 mg(2.5 mg base)/3 mL solution for nebulization 3 ml inhalation 4X/DAY PRN (Reason: sob) Patient Comments: inhale contents of 1 vial ( 3 milliliters ) in nebulizer by mouth... (REFER TO PRESCRIPTION NOTES). liothyronine 25 mcg tablet 25 mcg PO DAILY Patient Comments: TAKE 1 TABLET BY MOUTH ONCE DAILY FOR 90 DAYS tiotropium bromide [Spiriva with HandiHaler] 18 mcg capsule, w/inhalation device 18 mcg INHALATION DAILY Patient Comments: INHALE THE CONTENTS OF 1 CAPSULE TWICE EACH TIME VIA HANDIHALER ONCE DAILY cholecalciferol (vitamin D3) 25 mcg (1,000 unit) Capsule 25 mcg PO DAILY PreserVision AREDS [id number] Capsule 1 cap PO BID Jardiance 10 mg Tablet 10 mg PO DAILY 30 Days Qty: 30 0RF glimepiride 2 mg tablet 2 mg PO DAILY Qty: 3 0RF Patient Comments: take 1 tablet by mouth once daily WITH FIRST MEAL OF THE DAY Rx Instructions: Hold if glucose less than 130 mg/dl metoprolol succinate 25 mg tablet extended release 24 hr 25 mg PO DAILY ferrous sulfate [FeroSul] 325 mg (65 mg iron) tablet 325 mg PO BID torsemide 5 mg tablet 5 mg PO DAILY furosemide 40 mg tablet 40 mg PO DAILY lisinopril 10 mg tablet 10 mg PO DAILY Discontinued pantoprazole [Protonix] 40 mg tablet,delayed release (DR/EC) 40 mg PO DAILY sucralfate [Carafate] 1 gram tablet 1 g PO TID Qty: 90 0RF Referrals / Follow Up: Emeka Hernandez MD [Primary Care Provider] - Within 1 Week FriendFredy DO [Med Staff - Active Staff] - Within 2 Weeks Disposition Disposition (needs filled in before D/C Order can be placed): Home, Self Care Charges/Coding Visit Charges Inpatient E&M: 79544 Disch Hosp >30min
[2024-03-02 12:34] VITALS: O2SAT 95; O2SAT 98
== END 2024-03-02 13:26 | disposition home or self-care (01) | DRG 811 ==
LOC: ED 17:41 → PCU 17:48
PROVIDERS: Anesthesiology; Internal Medicine Gastroenterology; Nurse Practitioner; Admitting Provider Internal Medicine; Emergency Provider Emergency Medicine; PCP Family Medicine; Visit Provider Student in an Organized Health Care Education/Training Program
PROC: 0DJ08ZZ Inspection of Upper Intestinal Tract, Via Natural or Artificial Opening Endoscopic (ICD-10-PCS; CPT 43235; principal; 2024-03-01 09:30)
DX: D64.9 Anemia, unspecified (principal); K29.51 Unspecified chronic gastritis with bleeding; J96.11 Chronic respiratory failure with hypoxia; I50.32 Chronic diastolic (congestive) heart failure; I13.0 Hypertensive heart and chronic kidney disease with heart failure and stage 1 through stage 4 chronic kidney disease, or unspecified chronic kidney disease; N18.4 Chronic kidney disease, stage 4 (severe); E11.22 Type 2 diabetes mellitus with diabetic chronic kidney disease; J44.9 Chronic obstructive pulmonary disease, unspecified; E03.9 Hypothyroidism, unspecified; K26.9 Duodenal ulcer, unspecified as acute or chronic, without hemorrhage or perforation; E78.5 Hyperlipidemia, unspecified; I25.10 Atherosclerotic heart disease of native coronary artery without angina pectoris; I25.2 Old myocardial infarction; Z79.84 Long term (current) use of oral hypoglycemic drugs; R53.1 Weakness; Z87.891 Personal history of nicotine dependence; Z82.3 Family history of stroke
CPT/HCPCS: 36415; 71045; 80048; 82274; 82962; 83880; 84443; 84450; 84460; 84484; 85025; 85610; 85730; 86850; 86900; 86901; 86920; 87631; 93005; 94640; 94668; 97116; 97162; 97166; 97530; 97802; 99285; P9016; A4216; J1940

== ENCOUNTER → 2024-03-14 | Outpatient (CLI) | payer MEDICARE, SELFPAY ==
[2024-03-14 15:25] LABS: Absolute Lymphocyte Count 1.03 X10^3/uL (0.83-4.51); Absolute Neutrophil Count 4.5 X10^3/uL (2.0-7.7); Basophil# 0.03 X10^3/uL; Basophil% 0.5 % (0-1); Eosinophil# 0.14 X10^3/uL; Eosinophils% 2.3 % (0-5); Hematocrit 29.3 % (40-54); Hemoglobin 8.9 g/dL (13.0-16.5); Lymphocyte # 1.03 X10^3/ul (0.83-4.51); Lymphocyte % 16.6 % (19-41); Mean Corp Hgb Conc 30.4 g/dL (32-36); Mean Corpuscular Volume 102.1 fL (80-94); Mean Platelet Vol. 11.9 fl (6.2-12.0); Monocyte# 0.48 X10^3/uL; Monocyte% 7.7 % (0-10); NRBC Flagged by Analyzer 0 % (0-5); Neutrophil # 4.51 X10^3/uL (2.7-7.7); Neutrophil % 72.4 % (47-70); Platelet Count 112 K/mm3 (150-450); RBC Distribution Width CV 13.5 % (11.6-14.6); Red Blood Count 2.87 M/mm3 (4.6-6.2); White Blood Count 6.2 K/mm3 (4.4-11.0)
[2024-03-14 15:29] LABS: Protein, Urine (Random) 7.7 mg/dL (<11.9); Protein:Creat Ratio 329 mg/g CRE (0-200)
[2024-03-14 15:47] LABS: Anion Gap 6 (5-15); BUN 84 mg/dL (7-18); BUN/Creat Ratio 28.6 RATIO (10-20); Calcium,Total 9.9 mg/dL (8.5-10.1); Chloride 104 mmol/L (98-107); Creatinine, Serum 2.94 mg/dL (0.70-1.30); EST Glomerular Filtration Rate 22 mL/min (>60); Est Glom Filt Rate - Afr Amer 26 mL/min (>60); Glucose 290 mg/dL (74-106); Potassium 5.3 mmol/L (3.5-5.1); Sodium Level 141 mmol/L (136-145)
== END | disposition home or self-care (01) ==
LOC: MFPLAB 11:28
PROVIDERS: PCP Family Medicine; Referring Provider Family Medicine; Visit Provider Family Medicine
DX: D64.9 Anemia, unspecified (principal); I50.9 Heart failure, unspecified; N18.9 Chronic kidney disease, unspecified
CPT/HCPCS: 36415; 80048; 82570; 84156; 85025

== ENCOUNTER 2024-06-23 14:27 | Inpatient (IN) | payer MEDICARE, SELFPAY ==
[2024-06-23] VITALS (14 sets, daily range): BP systolic 109–146; BP diastolic 49–88; PULSE 89–117; RESP 16–29; TEMP 36.4–36.6; O2SAT 95–100; BMI 30.2; BMI 30.1
--- NOTE | 2024-06-23 14:39 | ED.VIS.DYS ---
HPI <MIKE Calhoun - Last Filed: 06/23/24 18:10> History of Present Illness Chief Complaint: Shortness of Breath Narrative Narrative: 84-year-old female with PMH of HTN, HLD, DM2, COPD, CHF, GI bleed, anemia states he developed shortness of breath yesterday. He wears 2.5 L of oxygen at baseline. He felt more short of breath with wheezing today despite using his nebulizer and called EMS. He states that he turned it up to 4 L and he felt better. He denies fever but has had some chills. No cough. No chest pain. Denies vomiting or diarrhea or melena hematochezia. He states his aspirin was discontinued when he had a prior GI bleed. He is not on blood thinners. PFSH <MIKE Calhoun - Last Filed: 06/23/24 18:10> [facility] Medical History Anemia Acute dyspnea Obesity (BMI 30.0-34.9) Anemia Upper GI bleed History of valvular heart disease Acute on chronic anemia Acute dyspnea Acute on chronic renal insufficiency Acute on chronic anemia Symptomatic anemia Abnormal ECG Elevated troponin Shortness of breath Acute upper gastrointestinal bleeding Essential hypertension Renal insufficiency Non-ST elevation (NSTEMI) myocardial infarction COPD (chronic obstructive pulmonary disease) Loss of hearing No natural teeth Wears glasses Poor historian Thyroid disease Low iron High cholesterol Syncope History of GI bleed Shortness of breath on exertion History of echocardiogram Cardiology follow-up encounter Symptomatic anemia Diabetes Kidney disease Former smoker On home oxygen therapy TIA (transient ischemic attack) Myocardial infarct Hypertension Diastolic CHF Acute and chronic respiratory failure with hypoxia History of CAD (coronary artery disease) Nonrheumatic aortic (valve) stenosis Mild left ventricular hypertrophy History of left heart catheterization (LHC) (~03/15/22) Atherosclerotic heart disease of [place] coronary artery without angina pectoris Aortic valve stenosis, acquired CAD (coronary artery disease) COPD (chronic obstructive pulmonary disease) Polyarthralgia Diabetes mellitus, type 2 Former tobacco use Obesity Hypothyroidism HLD (hyperlipidemia) HTN (hypertension) Chronic respiratory failure with hypoxia Home Medications ?Medication ?Instructions ?Recorded ?Last Taken ?Type atorvastatin 80 mg tablet 80 mg PO DAILY CHOLESTEROL 05/02/21 02/27/24 History cholecalciferol (vitamin D3) 25 25 mcg PO DAILY vitamin 05/02/21 02/28/24 History mcg (1,000 unit) capsule ipratropium 0.5 mg-albuterol 3 mg 3 ml inhalation 4X/DAY PRN sob 05/02/21 11/18/23 History (2.5 mg base)/3 mL nebulization soln liothyronine 25 mcg tablet 25 mcg PO DAILY THYROID 05/02/21 02/28/24 History tiotropium bromide 18 mcg capsule 18 mcg inhalation DAILY SOB 05/02/21 02/28/24 History with inhalation device (Spiriva with HandiHaler) vitamins A,C,M-jjdu-ugecvu 4,296 1 cap PO BID vitamin 12/13/21 02/28/24 History mcg-226 mg-90 mg capsule (PreserVision AREDS) glimepiride 2 mg tablet 2 mg PO DAILY DM #3 tabs 03/09/23 02/28/24 Rx empagliflozin 10 mg tablet 10 mg PO DAILY heart failure 30 04/26/23 12/06/23 Rx (Jardiance) days #30 tabs metoprolol succinate 25 mg 25 mg PO DAILY heart 06/27/23 02/28/24 History tablet,extended release 24 hr ferrous sulfate 325 mg (65 mg 325 mg PO BID supplement 11/14/23 02/28/24 History iron) tablet (FeroSul) torsemide 5 mg tablet 5 mg PO DAILY water pill 01/29/24 02/28/24 History furosemide 40 mg tablet 40 mg PO DAILY water pill 02/02/24 02/28/24 History lisinopril 10 mg tablet 10 mg PO DAILY 02/28/24 02/27/24 History pantoprazole 40 mg tablet,delayed 40 mg PO BID #60 tabs 03/02/24 Unknown Rx release sucralfate 1 gram tablet 1 g PO Q6H 90 days #360 tabs 05/01/24 Unknown Rx Allergy/AdvReac Type Severity Reaction Status Date / Time aliskiren (From Valturna) Allergy Intermediate Other Verified 06/23/24 14:33 valsartan (From Valt[place]a) Allergy Intermediate Other Verified 06/23/24 14:33 codeine AdvReac Upset Verified 06/23/24 14:33 Stomach Family History Mother CVA (cerebral vascular accident) Heart disease Myocardial infarction Hx of CABG Hypertension Father CVA (cerebral vascular accident) Heart disease Surgical History S/P cataract extraction Social History household members: none housing: house Smoking Status: Former smoker how long ago did patient quit smoking: Quit 2011, prior 1 ppd since teen. alcohol intake: former year quit: 2010 substance use type: does not use ROS <MIKE Calhoun - Last Filed: 06/23/24 18:10> ROS ED ROS Narrative Constitutional: Positive for chills. No fever. CVS: Negative for palpitations, chest pain, syncope. Respiratory: Positive for shortness of breath. GI: Negative for abdominal pain, nausea, vomiting, diarrhea, melena, hematochezia. EXAM <MIKE Calhoun - Last Filed: 06/23/24 18:10> Physical Exam Narrative Exam Narrative: CONST: Patient in mild respiratory distress on nasal cannula. EYES: Normal inspection. NECK: Normal inspection. RESP: Tachypneic around 26/minute, diminished lung sounds with wheezing and bibasilar crackles. CVS: Regular rate and rhythm, no murmur, no gallop. SKIN: Color normal, no rash, warm, dry, intact. EXTREMITIES: Normal appearance, trace pedal ankle edema. NEURO: Alert and answering questions appropriately. PSYCH: Normal affect. Const Vital Signs: 06/23/24 14:28 06/23/24 14:33 06/23/24 14:33 Temperature 97.5 F L 97.6 F L Temperature Source Oral Temporal Pulse Rate 107 H 106 H Respiratory Rate 25 H 29 H Respiratory Effort Short of Breath Labored Accessory Muscle Use Respiratory Depth Shallow Respiratory Pattern Tachypnea Blood Pressure 140/72 H 138/49 H Blood Pressure Mean 94 78 Pulse Ox 97 97 Oxygen Delivery Method Nasal Cannula Nasal Cannula Nasal Cannula Oxygen Flow Rate (L/min) 2 2 2 06/23/24 14:54 06/23/24 15:33 06/23/24 15:51 Temperature 97.5 F L Temperature Source Oral Pulse Rate 100 111 H 112 H Respiratory Rate 16 29 H 20 H Respiratory Effort Respiratory Depth Respiratory Pattern Blood Pressure 124/62 H Blood Pressure Mean 82 Pulse Ox 98 Oxygen Delivery Method Nasal Cannula Oxygen Flow Rate (L/min) 2 06/23/24 16:00 06/23/24 17:00 06/23/24 17:33 Temperature 97.9 F 98 F 98 F Temperature Source Oral Oral Pulse Rate 117 H 113 H 113 H Respiratory Rate 20 H 19 H 19 H Respiratory Effort Respiratory Depth Respiratory Pattern Blood Pressure 117/70 129/49 H 129/49 H Blood Pressure Mean 85 75 75 Pulse Ox 95 96 96 Oxygen Delivery Method Nasal Cannula Nasal Cannula Oxygen Flow Rate (L/min) 2 <Dr. Eric Lester MD - Last Filed: 06/23/24 15:51> Physical Exam Const Vital Signs: 06/23/24 14:28 06/23/24 14:33 06/23/24 14:33 Temperature 97.5 F L 97.6 F L Temperature Source Oral Temporal Pulse Rate 107 H 106 H Respiratory Rate 25 H 29 H Respiratory Effort Short of Breath Labored Accessory Muscle Use Respiratory Depth Shallow Respiratory Pattern Tachypnea Blood Pressure 140/72 H 138/49 H Blood Pressure Mean 94 78 Pulse Ox 97 97 Oxygen Delivery Method Nasal Cannula Nasal Cannula Nasal Cannula Oxygen Flow Rate (L/min) 2 2 2 06/23/24 14:54 06/23/24 15:33 06/23/24 15:51 Temperature 97.5 F L Temperature Source Oral Pulse Rate 100 111 H 112 H Respiratory Rate 16 29 H 20 H Respiratory Effort Respiratory Depth Respiratory Pattern Blood Pressure 124/62 H Blood Pressure Mean 82 Pulse Ox 98 Oxygen Delivery Method Nasal Cannula Oxygen Flow Rate (L/min) 2 06/23/24 16:00 06/23/24 17:00 06/23/24 17:33 Temperature 97.9 F 98 F 98 F Temperature Source Oral Oral Pulse Rate 117 H 113 H 113 H Respiratory Rate 20 H 19 H 19 H Respiratory Effort Respiratory Depth Respiratory Pattern Blood Pressure 117/70 129/49 H 129/49 H Blood Pressure Mean 85 75 75 Pulse Ox 95 96 96 Oxygen Delivery Method Nasal Cannula Nasal Cannula Oxygen Flow Rate (L/min) 2 MDM <MIKE Calhoun - Last Filed: 06/23/24 18:10> MDM MDM Narrative Medical decision making narrative: Differential includes but not limited to: COPD exacerbation, CHF, pneumonia, viral illness, anemia 84-year-old male with history of COPD, CHF, multiple comorbidities presents with increased shortness of breath and wheezing x 2 days. He wears 2 L of oxygen at baseline. He is in mild respiratory distress. BP 140/72, HR 107, RR 26, 97% on 2 L, afebrile. Lungs have wheezing with prolonged expiratory phase and bibasilar crackles. He has trace ankle edema. Labs show WBC 5.9. Hemoglobin of 8.5 is slightly lower than previous but within his normal range. He send no recent symptoms of GI bleeding. He is not on aspirin or blood thinners. Electrolytes are normal. BUN 86 and creatinine of 2.36 are at baseline. Glucose 200. EKG is nonischemic. Troponin is 83. Patient has had elevated troponins in the past on the old cardiac enzymes. His last cardiac catheterization was 03/15/2022 which showed mild to moderate disease with plan to treat medically. He has had elevated troponins since then but cardiology recommended medical management due to his history of recurrent anemia and GI bleeds which is why he is not on any aspirin or blood thinners. proBNP is 2233 but he has no signs of congestive heart failure on x-ray and I expect this is more elevated from his chronic kidney disease. His exam is more consistent with a COPD exacerbation and he was given aerosols and Solu-Medrol. I discussed the case with the hospitalist for admission. External records reviewed: Echocardiogram 12/08/2023 Normal left ventricle, EF 50 to 55%. Lab Data Attestation: I reviewed the patient's lab results. Labs: Laboratory Results - last 24 hr 06/23/24 06/23/24 14:55 16:51 WBC 5.9 RBC 2.84 L Hgb 8.5 L Hct 27.0 L MCV 95.1 H MCH 29.9 MCHC 31.5 L RDW Std Deviation 45.3 H RDW Coeff of John 13.2 Plt Count 101 L MPV 10.5 Immature Gran % (Auto) 0.300 Neut % (Auto) 71.4 H Lymph % (Auto) 17.7 L [place] % (Auto) 6.6 Eos % (Auto) 3.5 Baso % (Auto) 0.5 Absolute Neuts (auto) 4.2 Absolute Lymphs (auto) 1.05 Nucleated RBC % 0 Sodium 142 Potassium 4.3 Chloride 103 Carbon Dioxide 25.6 Anion Gap 13 BUN 86 H Creatinine 2.36 H Estim Creat Clear Calc 22.61 L Est GFR (MDRD) Non-Af 26 L BUN/Creatinine Ratio 36.4 H Glucose 200 H Calcium 9.3 Troponin T High Sens 83 H* Troponin T Hi Sens 2 Hr 83 H* NT pro BNP II 2233 H Radiography Diagnostic Testing: Clinical Impression(s) from Imaging Studies Chest X-Ray 06/23/24 15:05 IMPRESSION: No acute abnormality is seen. Reading Location: [place] [id number] ED attending interpretation of 1-view chest x-ray shows normal heart size, no acute infiltrate, edema, or effusion. EKG Initial EKG: Attestation: I personally reviewed and interpreted this EKG as follows: Comments: Sinus rhythm with first-degree AV block at [address] changes, no STEMI <Dr. Eric Lester MD - Last Filed: 06/23/24 15:51> [facility] Lab Data Labs: Laboratory Results - last 24 hr 06/23/24 06/23/24 14:55 16:51 WBC 5.9 RBC 2.84 L Hgb 8.5 L Hct 27.0 L MCV 95.1 H MCH 29.9 MCHC 31.5 L RDW Std Deviation 45.3 H RDW Coeff of John 13.2 Plt Count 101 L MPV 10.5 Immature Gran % (Auto) 0.300 Neut % (Auto) 71.4 H Lymph % (Auto) 17.7 L [place] % (Auto) 6.6 Eos % (Auto) 3.5 Baso % (Auto) 0.5 Absolute Neuts (auto) 4.2 Absolute Lymphs (auto) 1.05 Nucleated RBC % 0 Sodium 142 Potassium 4.3 Chloride 103 Carbon Dioxide 25.6 Anion Gap 13 BUN 86 H Creatinine 2.36 H Estim Creat Clear Calc 22.61 L Est GFR (MDRD) Non-Af 26 L BUN/Creatinine Ratio 36.4 H Glucose 200 H Calcium 9.3 Troponin T High Sens 83 H* Troponin T Hi Sens 2 Hr 83 H* NT pro BNP II 2233 H Radiography Diagnostic Testing: Clinical Impression(s) from Imaging Studies Chest X-Ray 06/23/24 15:05 IMPRESSION: No acute abnormality is seen. Reading Location: [facility]- Treatment and Re-Evaluation Comments:: I have personally performed a face to face assessment of the patient and have reviewed the CLEMENTE Note. I performed a substantive portion of the visit including all aspects of the following. My young findings include: History is increased shortness of breath and weakness today. Mild nonproductive cough, having some chills and feeling weak. Denies any GI bleeding symptoms which she has a history of. Exam is no respiratory distress but tachypneic and diffuse expiratory wheezes and prolonged expiratory phase. Heart is regular. Trace pedal edema. No JVD. Medical Decison Making 1 view chest x-ray on my interpretation shows no acute pulmonary edema or pneumonia. Radiology in agreement. EKG shows no acute injury pattern, he is chronically anemic and similarly so with not a big change. After nebulizer treatments, he still dyspneic and appears weak. He would be amenable to staying in the hospital if he is not a lot better after the other treatments we are giving him. Other additions or changes: [None] Discharge Plan Triage Chief Complaint: Shortness of Breath ED Midlevel Provider: Nalini aTi ED Provider: Eric Lester Dx/Rx/DC Orders Clinical Impression: COPD exacerbation, Chronic anemia, Chronic kidney disease, Elevated troponin, Debility Primary Care Provider: Emeka Hernandez
--- NOTE | 2024-06-23 14:46 | EKG12_ITS ---
Test Reason : SOB Blood Pressure : */* mmHG Vent. Rate : 100 BPM Atrial Rate : 100 BPM P-R Int : 226 ms QRS Dur : 88 ms QT Int : 342 ms P-R-T Axes : 57 -2 69 degrees QTcB Int : 441 ms Sinus rhythm with 1st degree A-V block Nonspecific ST and T wave abnormality Abnormal ECG Confirmed by Trell Kendrick ([id number]), marketing editor ZACKARY MARTINEZ ([id number]) on 06/24/2024 11:28:21 AM Referred By: RU/ANCA Confirmed By: Trell Kendrick
[2024-06-23] MEDS: Ipratropium/Albuterol Sulfate 3 ML AMPUL.NEB INHALATION ×3 (14:54→21:00)
[2024-06-23 15:03] LABS: Absolute Lymphocyte Count 1.05 X10^3/uL (0.83-4.51); Absolute Neutrophil Count 4.2 X10^3/uL (2.0-7.7); Basophil# 0.03 X10^3/uL; Basophil% 0.5 % (0-1); Eosinophil# 0.21 X10^3/uL; Eosinophils% 3.5 % (0-5); Hemoglobin 8.5 g/dL (13.0-16.5); Lymphocyte # 1.05 X10^3/ul (0.83-4.51); Lymphocyte % 17.7 % (19-41); Mean Corp Hgb Conc 31.5 g/dL (32-36); Mean Corpuscular Hgb 29.9 pg (27.0-32.0); Mean Corpuscular Volume 95.1 fL (80-94); Mean Platelet Vol. 10.5 fl (6.2-12.0); Monocyte# 0.39 X10^3/uL; Monocyte% 6.6 % (0-10); NRBC Flagged by Analyzer 0 % (0-5); Neutrophil # 4.24 X10^3/uL (2.7-7.7); Neutrophil % 71.4 % (47-70); Platelet Count 101 K/mm3 (150-450); RBC Distribution Width CV 13.2 % (11.6-14.6); RBC Distribution Width SD 45.3 fl (35.1-43.9); Red Blood Count 2.84 M/mm3 (4.6-6.2); White Blood Count 5.9 K/mm3 (4.4-11.0)
--- NOTE | 2024-06-23 15:05 | RAD_ITS ---
PROCEDURE: CHEST 1 VIEW (PORTABLE) 06/23/2024 REASON FOR EXAM: DYSPNEA TECHNIQUE: Frontal view of the chest. COMPARISON: None FINDINGS: Hardware: EKG electrodes are seen. Heart: The heart size is normal. Atherosclerotic calcification of the aortic arch. Lungs: The lungs are clear. Bones: Degenerative changes are identified within the thoracic spine. Other: RAD/Chest 1 View (Portable) IMPRESSION: No acute abnormality is seen. Reading Location: [place] [id number]
[2024-06-23 15:30] LABS: Pro- Brain NATRIURETIC PEPTIDE 2233 pg/mL (<=1800)
[2024-06-23 15:50] LABS: Anion Gap 13 (5-15); BUN 86 mg/dL (4-19); BUN/Creat Ratio 36.4 RATIO (10-20); Calcium,Total 9.3 mg/dL (7.6-11.0); Carbon Dioxide 25.6 mmol/L (21.0-32.0); Chloride 103 mmol/L (98-108); Creatinine, Serum 2.36 mg/dL (0.70-1.20); EST Glomerular Filtration Rate 26 (>60); Estimated Creatinine Clearance 22.61 ml/min (50-250); Glucose 200 mg/dL (70-99); Potassium 4.3 mmol/L (3.3-5.1); Sodium Level 142 mmol/L (133-145)
[2024-06-23] MEDS: MethylPREDNISolone 125 MG/2 ML Vial IV (15:59)
--- NOTE | 2024-06-23 16:16 | ED.RN ---
Critical troponin called by lab of 83. Nalini MCKEON notified
[2024-06-23 16:17] LABS: Troponin T High Sensitivity 83 ng/L (<=22)
--- NOTE | 2024-06-23 17:34 | PCM.HP.STD ---
HPI - General General Date of Admission: 06/23/24 Date of Service: 06/23/24 Chief Complaint: Dyspnea, wheezing. HPI Narrative The patient is an 84 y/o M w/ PMHx: Chronic anemia/AOCD/Fe deficiency anemia, CKD stage IV per GFR trending, GERD w/ Hx GI bleeding, Chronic thrombocytopenia, Obesity, Chronic COPD w/ Chronic Hypoxic Respiratory Failure (2.5L NC), HTN, HLD, Diabetes mellitus type II, HFpEF, Hx TIA, Former tobacco use, Hypothyroidism, Valvular Heart Disease, Nonobstructive CAD who presents to the [facility] ED on with history of worsening shortness of breath starting the day prior with significant wheezing and fatigue, worse with exertion turning his own oxygen supplementation up to 4 L with some improvement with no recent fevers but he does report subjective chills no worsened cough or productive sputum with no recent nausea, emesis, diarrhea, melena or hematochezia prompting eventual ED evaluation to be cautious. Patient does have chronic orthopnea and this has been unchanged. He notes that his weights have been stable. From review of his weights in the system it does appear that most recently 05/28/2024 he was 181 pounds and 0.4 this on 03/24/2024 he was 182 pounds this significantly stable as far as weight is concerned. Workup in the ED included T97.5 Oral, heart rate 107, BP 140/72, respiratory rate 25, 97% on 2 L nasal cannula noted most recently on 05/28/2024 to be 93% on 3 L nasal cannula at that time with most recent repeat vitals in the ED T98 oral, heart rate 113, BP 129/49, respiratory rate 19, 96% on 2 L nasal cannula, CBC with WC 5.9, hemoglobin 8.5, MCV 95.1, platelet 101 without marked shift, BMP with BUN/creatinine 86/2.36, GFR 26, glucose 200, initial troponin 83 with repeat delta pending upon requested evaluation of patient, BNP 2233, chest x-ray with no acute cardiopulmonary findings, EKG with sinus rhythm with first-degree AV block with no acute evidence of ischemia in the ED patient ministered DuoNeb therapies and Solu-Medrol 125 mg IV x 1. PFSH Medical History Anemia Acute dyspnea Obesity (BMI 30.0-34.9) Anemia Upper GI bleed History of valvular heart disease Acute on chronic anemia Acute dyspnea Acute on chronic renal insufficiency Acute on chronic anemia Symptomatic anemia Abnormal ECG Elevated troponin Shortness of breath Acute upper gastrointestinal bleeding Essential hypertension Renal insufficiency Non-ST elevation (NSTEMI) myocardial infarction COPD (chronic obstructive pulmonary disease) Loss of hearing No natural teeth Wears glasses Poor historian Thyroid disease Low iron High cholesterol Syncope History of GI bleed Shortness of breath on exertion History of echocardiogram Cardiology follow-up encounter Symptomatic anemia Diabetes Kidney disease Former smoker On home oxygen therapy TIA (transient ischemic attack) Myocardial infarct Hypertension Diastolic CHF Acute and chronic respiratory failure with hypoxia History of CAD (coronary artery disease) Nonrheumatic aortic (valve) stenosis Mild left ventricular hypertrophy History of left heart catheterization (LHC) (~03/15/22) Atherosclerotic heart disease of [place] coronary artery without angina pectoris Aortic valve stenosis, acquired CAD (coronary artery disease) COPD (chronic obstructive pulmonary disease) Polyarthralgia Diabetes mellitus, type 2 Former tobacco use Obesity Hypothyroidism HLD (hyperlipidemia) HTN (hypertension) Chronic respiratory failure with hypoxia Home Medications ?Medication ?Instructions ?Recorded ?Last Taken ?Type atorvastatin 80 mg tablet 80 mg PO DAILY CHOLESTEROL 05/02/21 02/27/24 History cholecalciferol (vitamin D3) 25 25 mcg PO DAILY vitamin 05/02/21 02/28/24 History mcg (1,000 unit) capsule ipratropium 0.5 mg-albuterol 3 mg 3 ml inhalation 4X/DAY PRN sob 05/02/21 11/18/23 History (2.5 mg base)/3 mL nebulization soln liothyronine 25 mcg tablet 25 mcg PO DAILY THYROID 05/02/21 02/28/24 History tiotropium bromide 18 mcg capsule 18 mcg inhalation DAILY SOB 05/02/21 02/28/24 History with inhalation device (Spiriva with HandiHaler) vitamins A,C,A-ucls-phufvn 4,296 1 cap PO BID vitamin 12/13/21 02/28/24 History mcg-226 mg-90 mg capsule (PreserVision AREDS) glimepiride 2 mg tablet 2 mg PO DAILY DM #3 tabs 03/09/23 02/28/24 Rx empagliflozin 10 mg tablet 10 mg PO DAILY heart failure 30 04/26/23 12/06/23 Rx (Jardiance) days #30 tabs metoprolol succinate 25 mg 25 mg PO DAILY heart 06/27/23 02/28/24 History tablet,extended release 24 hr ferrous sulfate 325 mg (65 mg 325 mg PO BID supplement 11/14/23 02/28/24 History iron) tablet (FeroSul) torsemide 5 mg tablet 5 mg PO DAILY water pill 01/29/24 02/28/24 History furosemide 40 mg tablet 40 mg PO DAILY water pill 02/02/24 02/28/24 History lisinopril 10 mg tablet 10 mg PO DAILY 02/28/24 02/27/24 History pantoprazole 40 mg tablet,delayed 40 mg PO BID #60 tabs 03/02/24 Unknown Rx release sucralfate 1 gram tablet 1 g PO Q6H 90 days #360 tabs 05/01/24 Unknown Rx Allergy/AdvReac Type Severity Reaction Status Date / Time aliskiren (From Valt[place]a) Allergy Intermediate Other Verified 06/23/24 14:33 valsartan (From [place]a) Allergy Intermediate Other Verified 06/23/24 14:33 codeine AdvReac Upset Verified 06/23/24 14:33 Stomach Family History Mother CVA (cerebral vascular accident) Heart disease Myocardial infarction Hx of CABG Hypertension Father CVA (cerebral vascular accident) Heart disease Surgical History S/P cataract extraction Social History household members: none housing: house Smoking Status: Former smoker how long ago did patient quit smoking: Quit 2011, prior 1 ppd since teen. alcohol intake: former year quit: 2010 substance use type: does not use ROS ROS Narrative Admission Review of Systems: CONSTITUTIONAL: No weight loss, fever, chills, weight gain, + weakness or fatigue. HEENT: Eyes: No visual loss, blurred vision, double vision or yellow sclerae. Ears, Nose, Throat: No hearing loss, sneezing, congestion, runny nose or sore throat. SKIN: + Chronic bilateral lower extremity venous stasis skin changes, occasional abrasion, occasional stage ecchymoses. CARDIOVASCULAR: + Chronic stable BL LE edema, not markedly pitting, chronic unchanged orthopnea. No chest pain/pressure/tightness, palpitations, syncopal events. RESPIRATORY: + Acute on chronic shortness of breath, occasional cough with occasional increased phlegm but no marked sputum production he notes, increased wheezing. No marked sputum, no hemoptysis. GASTROINTESTINAL: No anorexia, nausea, vomiting or diarrhea, abdominal pain, melena, BRBPR. GENITOURINARY: No dysuria, frequency, urgency or retention. NEUROLOGICAL: No headache, dizziness, syncope, paralysis, ataxia, numbness or tingling in the extremities, focal weakness, change in bowel or bladder control, seizure. MUSCULOSKELETAL: + muscle, back pain, joint pain or stiffness. HEMATOLOGIC: + anemia, easy bleeding/bruising. LYMPHATICS: No enlarged nodes. No history of splenectomy. PSYCHIATRIC: No history of depression or anxiety. ENDOCRINOLOGIC: No reports of sweating, cold or heat intolerance. No polyuria or polydipsia. ALLERGIES: No history of asthma, hives, eczema or rhinitis. Vital Signs Vital Signs Vital Signs: 06/23/24 14:28 06/23/24 14:33 06/23/24 14:33 Temperature 97.5 F L 97.6 F L Temperature Source Oral Temporal Pulse Rate 107 H 106 H Respiratory Rate 25 H 29 H Respiratory Effort Short of Breath Labored Accessory Muscle Use Respiratory Depth Shallow Respiratory Pattern Tachypnea Blood Pressure 140/72 H 138/49 H Blood Pressure Mean 94 78 Pulse Ox 97 97 Oxygen Delivery Method Nasal Cannula Nasal Cannula Nasal Cannula Oxygen Flow Rate (L/min) 2 2 2 06/23/24 14:54 06/23/24 15:33 06/23/24 15:51 Temperature 97.5 F L Temperature Source Oral Pulse Rate 100 111 H 112 H Respiratory Rate 16 29 H 20 H Respiratory Effort Respiratory Depth Respiratory Pattern Blood Pressure 124/62 H Blood Pressure Mean 82 Pulse Ox 98 Oxygen Delivery Method Nasal Cannula Oxygen Flow Rate (L/min) 2 06/23/24 16:00 06/23/24 17:00 06/23/24 17:33 Temperature 97.9 F 98 F 98 F Temperature Source Oral Oral Pulse Rate 117 H 113 H 113 H Respiratory Rate 20 H 19 H 19 H Respiratory Effort Respiratory Depth Respiratory Pattern Blood Pressure 117/70 129/49 H 129/49 H Blood Pressure Mean 85 75 75 Pulse Ox 95 96 96 Oxygen Delivery Method Nasal Cannula Nasal Cannula Oxygen Flow Rate (L/min) 2 Weight Weight: 181 lb 10.574 oz Body Mass Index (BMI) 30.2 Physical Exam Narrative Physical Examination: General: Awake, alert, oriented x 3 and cooperative, seated upright in the ED bed, fatigued, no evidence of any distress. Skin: Normal color, normal turgor, no icterus, no cyanosis, chronic bilateral lower extremity venous stasis skin changes, occasional staged ecchymoses, abrasion HEENT: AT/NC, EOMI, PERRLA, MMM, no carotid bruits, no marked JVD noted, although difficult exam given thickened neck. Lungs: Diffusely diminished, > bases, appropriate effort, no evidence of any distress, currently maintained on chronic 2L NC, crackles at bases, diffuse soft end expiratory wheezing also present however. Heart: Regular rate with regular rhythm; no gallop, rub audible. Abdomen: Soft, obese, NTTP, distant BS, difficult to discern distention and HSM given habitus. Extremities: No cyanosis, no clubbing, chronic bilateral lower extremity ankle to distal [place] 1+ edema, stable per patient report. Neurological: Patient awake, alert, oriented as noted, cognitive function intact; pupils equally reactive to light and accommodation, cranial nerves grossly normal, moving all 4 extremities, no focal deficits, strength moderately to severely decreased secondary to acute presentation. Psychiatric: Affect appears fatigued, no acute evidence of depressive or anxiety feelings. Results Lab / Micro Data 06/23/24 14:55 06/23/24 14:55 Labs: Laboratory Results - last 24 hr 06/23/24 14:55: WBC 5.9, RBC 2.84 L, Hgb 8.5 L, Hct 27.0 L, MCV 95.1 H, MCH 29.9, MCHC 31.5 L, RDW Std Deviation 45.3 H, RDW Coeff of John 13.2, Plt Count 101 L, MPV 10.5, Immature Gran % (Auto) 0.300, Neut % (Auto) 71.4 H, Lymph % (Auto) 17.7 L, [place] % (Auto) 6.6, Eos % (Auto) 3.5, Baso % (Auto) 0.5, Absolute Neuts (auto) 4.2, Absolute Lymphs (auto) 1.05, Nucleated RBC % 0, Sodium 142, Potassium 4.3, Chloride 103, Carbon Dioxide 25.6, Anion Gap 13, BUN 86 H, Creatinine 2.36 H, Estim Creat Clear Calc 22.61 L, Est GFR (MDRD) Non-Af 26 L, BUN/Creatinine Ratio 36.4 H, Glucose 200 H, Calcium 9.3, Troponin T High Sens 83 H*, NT pro BNP II 2233 H Micro: Microbiology 06/23/24 14:55 Mucosa - Nose SARS-CoV-2, Influenza & RSV (PCR) - Final Imaging Radiology Impression Chest X-Ray 06/23/24 15:05 IMPRESSION: No acute abnormality is seen. Reading Location: [facility] Assessment & Plan Assessment/Plan (1) Elevated troponin: (2) COPD exacerbation: PLAN: Plan The patient is an 84 y/o M w/ PMHx: Chronic anemia/AOCD/Fe deficiency anemia, CKD stage IV per GFR trending, GERD w/ Hx GI bleeding, Chronic thrombocytopenia, Obesity, Chronic COPD w/ Chronic Hypoxic Respiratory Failure (2.5L NC), HTN, HLD, Diabetes mellitus type II, HFpEF, Hx TIA, Former tobacco use, Hypothyroidism, Valvular Heart Disease, Nonobstructive CAD who presents to the [facility] ED on with history of worsening shortness of breath starting the day prior with significant wheezing and fatigue, worse with exertion turning his own oxygen supplementation up to 4 L with some improvement with no recent fevers but he does report subjective chills no worsened cough or productive sputum with no recent nausea, emesis, diarrhea, melena or hematochezia prompting eventual ED evaluation to be cautious. #1. Acute on Chronic Hypoxic Respiratory Failure secondary to Acute on COPD exacerbation: Will admit to PCU given elevated cardiac enzyme and concern for possibly cardiac component as well possibly secondary to demand given his respiratory presentation concurrently, maintain on oxygen with wean as tolerated to home oxygen supplementation, continue ATC duonebs, PRN albuterol, IV methylprednisolone and preferentially quickly transition to may be a very quick burst of therapy given significant GI bleed history, HOB, IS parameters, will obtain sputum Cx, respiratory viral panel, procalcitonin, will hold on immediately abx therapy but low threshold to add if appropriate. BNP was notably elevated, will pulsed dose with Lasix 40 mg IV x 1 to be cautious but still uncertain if this is a component or not as well. #2. Indeterminate cardiac enzyme, uncertain significance: EKG in ED SR without acute evidence of ischemia, CXR w/ chronic changes with no acute cardiopulmonary findings otherwise, initial trop 83 with repeat delta pending. Will place on a monitored bed to assure no acute myocardial infarction with serial cardiac enzymes. Will continue to pursue enzyme trend and if significantly elevates may consider heparin however given significant GI bleed history preference to avoid. Holding off on aspirin therapy given significant bleed history as well and less enzymes significantly rises. If enzyme rises notably will consult cardiology given significant history and most recent cardiac catheterization with mild to moderate disease only noted. If enzymes rise significantly we will also plan repeat echocardiogram. FLP in AM. Magnesium level requested. #3. HFpEF, possible decompensation but uncertain: BNP upon ED presentation notably elevated possibly secondary to significant underlying renal disease however, will avoid any hydration however to be cautious we will pulse dose with Lasix IV x 1 as uncertain if this could still be a component, echocardiogram 12/07/2023 with EF 50 to 55%, continue statin, metoprolol, lisinopril, clarifying if patient is on torsemide versus Lasix as both are listed, not on aspirin or antiplatelet therapy likely secondary to underlying significant GI bleed history and anemia. Weights currently stable and does have chronic orthopnea that is unchanged. Will place neck margarito wraps. Pending response low threshold to continue with IV Lasix regimen if necessary but still uncertain if this is decompensated. #4. Nonobstructive CAD: Most recent cardiac catheterization mid 03/15/22 with mild to moderate disease with medical management decision at that time, not on antiplatelet therapy secondary to significant GI bleed history, continue statin, metoprolol, lisinopril home regimen. Continue evaluation as noted. #5. Valvular heart disease: Most recent echocardiogram noted 12/07/2023 with EF 50 to 55%, mild to moderate mitral annular calcification, trivial MVI, Tri sinus/trileaflet aortic valve with trivial aortic valve insufficiency. #6. Chronic Kidney Disease Stage IV per GFR trending although has vacillated: Admission BUN/Cr 86/2.36, GFR 26, baseline renal function primarily 2.5-3.0, most recently previous 05/28/2024 creatinine 3.09 at that time, repeat BMP in AM. #7. Chronic macrocytic anemia, anemia of chronic disease, iron deficiency anemia: Admission hemoglobin 8.5, MCV 95.1, baseline hemoglobin primarily 7-9 range, stable, continue to trend, following with hematology outpatient, most recent visit 05/28/2024, encouraged continued IV iron supplementation per the direction outpatient. Continue oral iron supplementation. #8. Chronic thrombocytopenia: Admission platelet 101, baseline primarily 90-1 30 range, stable, continue to trend. #9. 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 pylori negative, 04/02/2023 EGD with capsule endoscopy with short segments of inflammation seen with no active bleeding concerns or significant findings, repeat EGD 12/31/2023 during admission with normal esophagus, oozing gastric ulcer which was biopsied, normal second portion of the duodenum, eventual follow-up most recent EGD 03/01/2024 with normal esophagus, chronic gastritis with hemorrhage treated with a heater probe, oozing duodenal ulcers with pigmented material treated with a heater probe. Encourage strongly continued routine follow-up outpatient with gastroenterology as previously arranged. Continue PPI and sucralfate regimen. #10. Diabetes mellitus type II: Hold oral home regimen, hemoglobin A1c requested, ADA diet, accu checks w/ ISS. #11. Hypertension: Continue home regimen including torsemide, metoprolol, lisinopril home regimen, clarifying is also listed on Lasix as well, PRN hydralazine. #12. Hyperlipidemia: Continue home statin regimen. AM FLP. #13. Hypothyroidism: Continue patient home liothyronine regimen. #14. History of TIA: Not on antiplatelet therapy possibly secondary to significant GI bleed history, clarified to be certain, continue statin, hypertensive regimen, temporally holding diabetic regimen as noted. #15. Obesity: Weight loss and lifestyle changes encouraged. #16. DVT prophylaxis: SCDs. #17. CODE status: Patient RUSTY is his daughter and living will is currently in place. Discussed CODE status at length including difference between FULL code, DNR-CCA and DNR-CC status. Following discussions about the differences in these status, requested DNR-CCA, no intubation status which was confirmed with examples. Advanced Care Planning Face to Face Time: 16 minutes. Charges/Coding Visit Charges Inpatient E&M: 29128 Init Hosp L3 Procedures Hospitalists Procedures: 49493 Advncd Care Plan 30 Min
[2024-06-23 18:05] LABS: Troponin T High Sens 2 HR 83 ng/L (<=22)
--- NOTE | 2024-06-23 19:37 | NURSING ---
pt refusing scd's. attempted to provide education.
[2024-06-23] MEDS: Furosemide 40 MG/4 ML Vial IV (19:42)
[2024-06-23] MEDS: 0.9% Saline Lock 10 ML Syringe IV ×2 (19:43→22:10)
[2024-06-23 20:29] LABS: Procalcitonin 0.12 ng/mL (<=0.10)
[2024-06-23 21:57] LABS: Troponin T High Sens 4 HR 71 ng/L (<=22)
[2024-06-23] MEDS: Insulin Lispro 100 UNIT/ML INSULN.PEN SC (22:08)
[2024-06-23] MEDS: Menthol/Lanolin/Calamine/Znox 113 GM Tube 1 APPLIC TOPICAL (22:09)
[2024-06-23] MEDS: Methylprednisolone Sod Succ 40 MG/ML VIAL IV (22:09)
[2024-06-23] MEDS: Sucralfate 1 GM Tablet PO (22:10)
[2024-06-23] MEDS: Pantoprazole Sodium 40 MG Tablet PO (22:10)
[2024-06-23 23:41] LABS: Bedside Glucose 205 mg/dL (74-106)
[2024-06-24] VITALS (16 sets, daily range): BP systolic 116–152; BP diastolic 45–87; PULSE 82–107; RESP 18–22; TEMP 36.4–37.3; O2SAT 94–100
[2024-06-24] MEDS: Insulin Lispro 100 UNIT/ML INSULN.PEN SC ×3 (06:17→16:51)
[2024-06-24] MEDS: Methylprednisolone Sod Succ 40 MG/ML VIAL IV (06:18)
[2024-06-24] MEDS: 0.9% Saline Lock 10 ML Syringe IV ×2 (06:18→20:43)
[2024-06-24] MEDS: Liothyronine 5 MCG Tablet 25 MCG PO (06:22)
[2024-06-24] MEDS: Menthol/Lanolin/Calamine/Znox 113 GM Tube 1 APPLIC TOPICAL ×2 (06:24→20:45)
[2024-06-24] MEDS: Sucralfate 1 GM Tablet PO ×4 (06:50→20:43)
[2024-06-24 06:53] LABS: Bedside Glucose 172 mg/dL (74-106)
[2024-06-24 07:40] LABS: Absolute Lymphocyte Count 0.51 X10^3/uL (0.83-4.51); Absolute Neutrophil Count 3.2 X10^3/uL (2.0-7.7); Hematocrit 24.1 % (40-54); Hemoglobin 7.9 g/dL (13.0-16.5); Lymphocyte # 0.51 X10^3/ul (0.83-4.51); Lymphocyte % 13.4 % (19-41); Mean Corp Hgb Conc 32.8 g/dL (32-36); Mean Corpuscular Hgb 30.3 pg (27.0-32.0); Mean Corpuscular Volume 92.3 fL (80-94); Mean Platelet Vol. 10.9 fl (6.2-12.0); Monocyte# 0.05 X10^3/uL; Monocyte% 1.3 % (0-10); NRBC Flagged by Analyzer 0 % (0-5); Neutrophil # 3.23 X10^3/uL (2.7-7.7); POSITIVE COUNT YES; POSITIVE DIFFERENTIAL YES; Platelet Count 90 K/mm3 (150-450); RBC Distribution Width CV 13.2 % (11.6-14.6); RBC Distribution Width SD 43.1 fl (35.1-43.9); Red Blood Count 2.61 M/mm3 (4.6-6.2); White Blood Count 3.8 K/mm3 (4.4-11.0)
[2024-06-24 07:43] LABS: Differential Indicated SCAN CRITERIA MET
[2024-06-24] MEDS: Ipratropium/Albuterol Sulfate 3 ML AMPUL.NEB INHALATION ×4 (07:49→19:15)
[2024-06-24 08:31] LABS: ALB/GLOB Ratio 1.4 RATIO (0.9-2.4); AST(SGOT) 18 U/L (<=37); Alanine Aminotransfer ALT/SGPT 31 U/L (<=46); Alkaline Phosphatase 71 U/L (40-129); Anion Gap 14 (5-15); BUN 95 mg/dL (4-19); BUN/Creat Ratio 36.8 RATIO (10-20); Calcium,Total 9.5 mg/dL (7.6-11.0); Carbon Dioxide 24.8 mmol/L (21.0-32.0); Chloride 101 mmol/L (98-108); Creatinine, Serum 2.57 mg/dL (0.70-1.20); EST Glomerular Filtration Rate 24 (>60); Estimated Creatinine Clearance 20.74 ml/min (50-250); Globulin 2.9 g/dL (2.2-4.2); Glucose 170 mg/dL (70-99); Potassium 4.6 mmol/L (3.3-5.1); Protein, Total 6.9 g/dL (5.9-8.4); Sodium Level 140 mmol/L (133-145); Total Bilirubin 0.32 mg/dL (0.00-1.30)
[2024-06-24 09:14] LABS: Ovalocyte 1+; Platelet Estimate MOD DEC (ADEQ); Polychromasia 1+
[2024-06-24] MEDS: Lisinopril 10 MG Tablet PO (09:26)
[2024-06-24] MEDS: Metoprolol(XL)Succ 25 MG Tablet PO (09:26)
[2024-06-24] MEDS: Furosemide 40 MG Tablet PO (09:26)
[2024-06-24] MEDS: Pantoprazole Sodium 40 MG Tablet PO ×2 (09:26→20:44)
[2024-06-24] MEDS: Atorvastatin Calcium 80 MG Tablet PO (09:26)
[2024-06-24] MEDS: Empagliflozin 10 MG Tablet PO (09:26)
[2024-06-24 10:35] LABS: Cholesterol 149 mg/dL (<=200); High Density Lipoprotein 36 mg/dL; Low Density Lipoprotein Calc. 92 mg/dL; Triglycerides 106 mg/dL; Very Low Density Lipoprotein 21 mg/dL (5-40); cholesterol:hdl ratio screen 4.12
[2024-06-24] MEDS: Ferrous Sulfate 325 MG Tablet PO ×2 (11:31→16:51)
[2024-06-24 12:02] LABS: Bedside Glucose 276 mg/dL (74-106)
--- NOTE | 2024-06-24 13:59 | PN_ITS ---
Subjective Subjective Patient seen and examined. He states he feels much better and his breathing has improved. He denies any wheezing, cough or chest pain, nausea vomiting or any other symptoms. He is down to 1 L of oxygen. Objective Data Objective Data Vital Signs: Vital Signs Temp Pulse Resp BP Pulse Ox O2 Del Method O2 Flow Rate 99.1 F 102 H 18 152/66 H 95 Nasal Cannula 1 06/24/24 11:30 06/24/24 12:11 06/24/24 12:11 06/24/24 11:30 06/24/24 12:11 06/24/24 12:11 06/24/24 12:11 Oxygen Flow Rate (L/min) 1 Oxygen Delivery Method Nasal Cannula Weight: 181 lb 3.52 oz Body Mass Index (BMI) 30.1 Intake & Output: Intake and Output for Last 24 Hours 06/22/24 06/23/24 06/24/24 23:59 23:59 23:59 Intake Total 200 / 200 150 / 150 Output Total 1000 / 1000 700 / 700 Balance -800 / -800 -550 / -550 Lab / Micro Data 06/24/24 07:20 06/24/24 07:20 Labs: Laboratory Results - last 24 hr 06/23/24 14:55: WBC 5.9, RBC 2.84 L, Hgb 8.5 L, Hct 27.0 L, MCV 95.1 H, MCH 29.9, MCHC 31.5 L, RDW Std Deviation 45.3 H, RDW Coeff of John 13.2, Plt Count 101 L, MPV 10.5, Immature Gran % (Auto) 0.300, Neut % (Auto) 71.4 H, Lymph % (Auto) 17.7 L, [place] % (Auto) 6.6, Eos % (Auto) 3.5, Baso % (Auto) 0.5, Absolute Neuts (auto) 4.2, Absolute Lymphs (auto) 1.05, Nucleated RBC % 0, Sodium 142, Potassium 4.3, Chloride 103, Carbon Dioxide 25.6, Anion Gap 13, BUN 86 H, C reatinine 2.36 H, Estim Creat Clear Calc 22.61 L, Est GFR (MDRD) Non-Af 26 L, B UN/Creatinine Ratio 36.4 H, Glucose 200 H, Calcium 9.3, Troponin T High Sens 83 H*, NT pro BNP II 2233 H, Procalcitonin 0.12 H 06/23/24 16:51: Magnesium 2.0, Troponin T Hi Sens 2 Hr 83 H* 06/23/24 20:55: Troponin T Hi Sens 4Hr 71 H* 06/23/24 22:02: POC Glucose 205 H 06/24/24 06:16: POC Glucose 172 H 06/24/24 07:20: WBC 3.8 L, RBC 2.61 L, Hgb 7.9 L, Hct 24.1 L, MCV 92.3, MCH 30.3, MCHC 32.8, RDW Std Deviation 43.1, RDW Coeff of John 13.2, Plt Count 90 L, MPV 10.9, Immature Gran % (Auto) 0.300, Neut % (Auto) 85.0 H, Lymph % (Auto) 13.4 L, [place] % (Auto) 1.3, Eos % (Auto) 0.0, Baso % (Auto) 0.0, Absolute Neuts (auto) 3.2, Absolute Lymphs (auto) 0.51 L, Nucleated RBC % 0, Platelet Estimate MOD DEC, Polychromasia 1+, Ovalocytes 1+, Sodium 140, Potassium 4.6, Chloride 101, Carbon Dioxide 24.8, Anion Gap 14, BUN 95 H, Creatinine 2.57 H, Estim Creat Clear Calc 20.74 L, Est GFR (MDRD) Non-Af 24 L, BUN/Creatinine Ratio 36.8 H, G lucose 170 H, Calcium 9.5, Total Bilirubin 0.32, AST 18, ALT 31, Alkaline Phosphatase 71, Total Protein 6.9, Albumin 4.0, Globulin 2.9, Albumin/Globulin Ratio 1.4, Triglycerides 106, Cholesterol 149, LDL Cholesterol, Calc 92, VLDL Cholesterol 21, HDL Cholesterol 36 L, Cholesterol/HDL Ratio 4.12 06/24/24 11:28: POC Glucose 276 H Micro: Microbiology 06/23/24 21:15 Mucosa - Nasopharyngeal Respiratory Panel (PCR) - Final 06/23/24 20:54 Nasal Secretion MRSA (PCR) - Final 06/23/24 14:55 Mucosa - Nose SARS-CoV-2, Influenza & RSV (PCR) - Final Radiography Diagnostic Testing: Radiology Impression Chest X-Ray 04/14/25 15:05 IMPRESSION: No acute abnormality is seen. Reading Location: [facility] Physical Exam Const alert, oriented x3, no apparent distress and well nourished General Appearance: cooperative and well developed HEENT normocephalic, head/scalp atraumatic, moist oral mucous membranes and oropharynx normal Eyes PERRL and EOMs intact bilaterally Neck no lymphadenopathy, supple and no JVD Lymph Lymphatic: no lymphadenopathy noted Resp Resp Narrative: mildly diminished breath sounds bibasally, no wheezes or crackles. On room air. Cardio regular rate, regular rhythm, S1 normal heart sound, S2 normal heart sound and no murmurs GI normal to inspection, nondistended, normoactive bowel sounds, soft to palpation, non-tender and non-distended Extremity normal capillary refill, no clubbing, cyanosis or edema and no calf tenderness General Extremity: no tenderness to palpation of joints or extremities Skin General Skin Exam: no breakdown Neuro CN's II-XII intact bilaterally, no focal motor deficits and no sensory deficits noted Motor Exam: strength 5/5 throughout and general weakness Psych thought process normal and cooperative Appearance: appropriate Assessment & Plan Assessment/Plan (1) COPD exacerbation: PLAN: Plan #Hypoxia in the setting of chronic respiratory failure due to COPD exacerbation * Feels much better. Currently down to 1 L of oxygen. On IV Solu-Medrol. * Breathing treatments with bronchodilators. Titrate oxygen to maintain saturation above 90%. * Switch to p.o. prednisone now since patient's breathing has improved. #Acute on chronic heart failure preserved ejection fraction: BNP was elevated on admission. However he has underlying CKD which could have caused this also. On lisinopril and metoprolol as well as statin. Continue diuresis. #Nonobstructing CAD: * Had cardiac cath in March 2022 which showed mild to moderate disease. Recommendation was for medical management. Not on antiplatelets due to history of GI bleed. On metoprolol and statin as well as lisinopril #CKD stage IV: Creatinine is 2.57 today which is around his baseline. Will monitor. #Chronic thrombocytopenia: Will continue monitoring. #GERD with history of GI bleed. 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 * He also had EGD in March 2023 with capsule endoscopy which showed short segments of inflammation with no active bleeding. He did have repeat EGD done in 12/31/2019 for which showed oozing gastric ulcer which was biopsied. * Most recent EGD was seen February 2020 for which showed chronic gastritis with hemorrhage and also duodenal ulcers were treated with a heater probe. * On IV pantoprazole and sulcal fate. #Type 2 diabetes mellitus: Oral meds on hold. Insulin sliding scale. ACT checks ACHS. #Hypertension: On torsemide and metoprolol as well as lisinopril. IV hydralazine as needed #Chronic anemia: hemoGlobin was 7.9 today. Baseline hemoglobin is around 7-8. Will monitor closely. #Hyperlipidemia: On statin #Hypothyroidism: On liothyronine #DVT prophylaxis: SCDs Charges/Coding Visit Charges Inpatient E&M: 75280 Subs Hosp L2
--- NOTE | 2024-06-24 15:20 | CASEMGMT ---
RN CM Face to Face with patient for initial transition planning/care coordination assessment. RN CM introduced self and role at [facility]. Patient lying in bed, alert and oriented. Patient willing to participate in assessment and is able to answer all questions appropriately. Care providers, pharmacy, and demographics verified. Strata:3 PCP: Mary Specialists: CED Eduardo; Wu, nephrolgosit; Preferred Pharmacy: [facility] Insurance: [employer] [facility] Prescription Benefit: yes Living Will/HPOA: yes, daughter Katie Singletary LNOK: daughter Living Arrangements: Patient lives alone in a mobile home with 8 steps and railing to enter the home. Patient is independent at home. Transportation: daughter DME/HHC: Patient has shower chair, BSC, raised, cane, walker, wheelchair, pulse ox, Katie home oxygen at 2lpm, and glucometer. Patient has had [facility] in the past. Patient has been to [facility] in the past. Patient is active with [facility] Patient wishes to discharge home, denies need for home health at this time. Patient states he has no further needs or concerns at this time. CM to follow for discharge planning needs that may arise. Disposition Plan: Patient to discharge home with family support and follow-up plans in place. Tamara ALEMAN, RN, CM
[2024-06-24 17:10] LABS: Bedside Glucose 184 mg/dL (74-106)
[2024-06-24 21:51] LABS: Bedside Glucose 128 mg/dL (74-106)
[2024-06-25] VITALS (9 sets, daily range): BP systolic 106–127; BP diastolic 45–67; PULSE 76–90; RESP 16–20; TEMP 36.6–36.7; O2SAT 92–99
[2024-06-25] MEDS: Menthol/Lanolin/Calamine/Znox 113 GM Tube 1 APPLIC TOPICAL ×2 (03:47→14:01)
[2024-06-25] MEDS: Liothyronine 5 MCG Tablet 25 MCG PO (06:46)
[2024-06-25] MEDS: Sucralfate 1 GM Tablet PO ×3 (06:46→16:01)
[2024-06-25 07:26] LABS: Bedside Glucose 118 mg/dL (74-106)
[2024-06-25] MEDS: Ipratropium/Albuterol Sulfate 3 ML AMPUL.NEB INHALATION ×2 (07:27→11:01)
[2024-06-25 07:55] LABS: Absolute Lymphocyte Count 1.06 X10^3/uL (0.83-4.51); Basophil# 0.01 X10^3/uL; Basophil% 0.1 % (0-1); Eosinophil# 0.03 X10^3/uL; Eosinophils% 0.3 % (0-5); Hematocrit 23.4 % (40-54); Lymphocyte # 1.06 X10^3/ul (0.83-4.51); Lymphocyte % 12.3 % (19-41); Mean Corp Hgb Conc 34.2 g/dL (32-36); Mean Corpuscular Hgb 31.3 pg (27.0-32.0); Mean Corpuscular Volume 91.4 fL (80-94); Monocyte# 0.53 X10^3/uL; Monocyte% 6.1 % (0-10); NRBC Flagged by Analyzer 0 % (0-5); Neutrophil # 6.98 X10^3/uL (2.7-7.7); Neutrophil % 80.9 % (47-70); POSITIVE COUNT YES; Platelet Count 94 K/mm3 (150-450); RBC Distribution Width CV 13.7 % (11.6-14.6); RBC Distribution Width SD 44.8 fl (35.1-43.9); Red Blood Count 2.56 M/mm3 (4.6-6.2); White Blood Count 8.6 K/mm3 (4.4-11.0)
[2024-06-25 08:53] LABS: Anion Gap 14 (5-15); BUN/Creat Ratio 38.9 RATIO (10-20); Calcium,Total 9.3 mg/dL (7.6-11.0); Carbon Dioxide 25.1 mmol/L (21.0-32.0); Chloride 99 mmol/L (98-108); Creatinine, Serum 2.83 mg/dL (0.70-1.20); EST Glomerular Filtration Rate 21 (>60); Estimated Creatinine Clearance 18.84 ml/min (50-250); Glucose 126 mg/dL (70-99); Potassium 4.4 mmol/L (3.3-5.1); Sodium Level 138 mmol/L (133-145)
[2024-06-25 09:12] LABS: BUN 110 mg/dL (4-19)
[2024-06-25] MEDS: predniSONE 20 MG Tablet 40 MG PO (10:39)
[2024-06-25] MEDS: Empagliflozin 10 MG Tablet PO (10:39)
[2024-06-25] MEDS: Pantoprazole Sodium 40 MG Tablet PO (10:40)
[2024-06-25] MEDS: Atorvastatin Calcium 80 MG Tablet PO (10:40)
[2024-06-25] MEDS: Metoprolol(XL)Succ 25 MG Tablet PO (10:40)
[2024-06-25] MEDS: Furosemide 40 MG Tablet PO (10:40)
[2024-06-25] MEDS: Lisinopril 10 MG Tablet PO (10:41)
[2024-06-25 11:16] LABS: Bedside Glucose 161 mg/dL (74-106)
[2024-06-25] MEDS: Insulin Lispro 100 UNIT/ML INSULN.PEN SC ×2 (11:22→16:00)
[2024-06-25] MEDS: Ferrous Sulfate 325 MG Tablet PO (11:56)
--- NOTE | 2024-06-25 13:49 | DS.PCM_ITS ---
Providers Date of Admission: 06/23/24 Date of Discharge: 06/25/24 Primary Care Physician: Dr. Emeka Hernandez MD Reason For Visit: ACUTE ON CHRONIC HYPOXIC RESP FAILURE Diagnosis Discharge Diagnosis (1) COPD exacerbation: Status: Chronic Code(s): J44.1 - Chronic obstructive pulmonary disease with (acute) exacerbation Plan #Hypoxia in the setting of chronic respiratory failure due to COPD exacerbation * Feels much better. Currently down to 1 L of oxygen. On IV Solu-Medrol. * Breathing treatments with bronchodilators. Titrate oxygen to maintain saturation above 90%. * Switch to p.o. prednisone now since patient's breathing has improved. #Acute on chronic heart failure preserved ejection fraction: BNP was elevated on admission. However he has underlying CKD which could have caused this also. On lisinopril and metoprolol as well as statin. Continue diuresis. #Nonobstructing CAD: * Had cardiac cath in March 2022 which showed mild to moderate disease. Recommendation was for medical management. Not on antiplatelets due to history of GI bleed. On metoprolol and statin as well as lisinopril #CKD stage IV: Creatinine is 2.57 today which is around his baseline. Will monitor. #Chronic thrombocytopenia: Will continue monitoring. #GERD with history of GI bleed. 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 * He also had EGD in March 2023 with capsule endoscopy which showed short segments of inflammation with no active bleeding. He did have repeat EGD done in 12/31/2019 for which showed oozing gastric ulcer which was biopsied. * Most recent EGD was seen February 2020 for which showed chronic gastritis with hemorrhage and also duodenal ulcers were treated with a heater probe. * On IV pantoprazole and sulcal fate. #Type 2 diabetes mellitus: Oral meds on hold. Insulin sliding scale. ACT checks ACHS. #Hypertension: On torsemide and metoprolol as well as lisinopril. IV hydralazine as needed #Chronic anemia: hemoGlobin was 7.9 today. Baseline hemoglobin is around 7-8. Will monitor closely. #Hyperlipidemia: On statin #Hypothyroidism: On liothyronine #DVT prophylaxis: SCDs Medications at Discharge Home Medications atorvastatin 80 mg tablet 80 mg PO DAILY CHOLESTEROL 05/02/21 cholecalciferol (vitamin D3) 25 mcg (1,000 unit) capsule 25 mcg PO DAILY vitamin 05/02/21 ipratropium 0.5 mg-albuterol 3 mg (2.5 mg base)/3 mL nebulization soln 3 ml inhalation 4X/DAY PRN sob 05/02/21 liothyronine 25 mcg tablet 25 mcg PO DAILY THYROID 05/02/21 tiotropium bromide 18 mcg capsule with inhalation device (Spiriva with HandiHaler) 18 mcg inhalation DAILY SOB 05/02/21 vitamins A,C,Q-vtdv-hcgwkj 4,296 mcg-226 mg-90 mg capsule (PreserVision AREDS) 1 cap PO BID vitamin 12/13/21 glimepiride 2 mg tablet 2 mg PO DAILY DM #3 tabs 03/09/23 empagliflozin 10 mg tablet (Jardiance) 10 mg PO DAILY heart failure 30 days #30 tabs 04/26/23 metoprolol succinate 25 mg tablet,extended release 24 hr 25 mg PO DAILY heart 06/27/23 ferrous sulfate 325 mg (65 mg iron) tablet (FeroSul) 325 mg PO BID supplement 11/14/23 furosemide 40 mg tablet 40 mg PO DAILY water pill 02/02/24 lisinopril 10 mg tablet 10 mg PO DAILY 02/28/24 pantoprazole 40 mg tablet,delayed release 40 mg PO BID #60 tabs 03/02/24 sucralfate 1 gram tablet 1 g PO Q6H 90 days #360 tabs 05/01/24 prednisone 20 mg tablet 40 mg (2 x 20 mg) PO BREAKFAST 4 days #8 tabs 06/25/24 Hospital Course Operations None Procedures 2-D Echocardiogram Summary of Care Provided Minutes Spent on Discharge: 42 Hospital Course: Patient is an 84-year-old female with an extensive past medical history as outlined including chronic respiratory failure on 2.5 L of oxygen was admitted through the ED on 06/23/2024 with a complaint of shortness of breath which started the day before and was worsening. He had associated wheezing and fatigue. Shortness of breath worsened with exertion. He had tenderness oxygen up to 4 L of oxygen to help with the shortness of breath. However his symptoms were not improving. He had subjective chills but denied any productive cough. He came into the ED where he was saturating at 97% on 2 L of oxygen. Initial troponin was 83 and did not trend upward significantly. proBNP was 2233 chest x-ray showed no acute cardiopulmonary pathology. EKG showed sinus rhythm with first-degree AV block and no evidence of ischemia. He was admitted to the manage for hypoxia due to acute exacerbation of COPD and heart failure. He was diuresed with IV Lasix and also placed on IV Solu-Medrol. His shortness of breath resolved and he felt much better. He remained stable and was discharged home on 06/25/2024. HE was discharged on PO prednisone 40mg daily x 5 days and is to follow up with his PCP within 1-2 weeks. Patient seen and examined. He had no active complaints and was eager to be discharged home. Labs and vitals reviewed. Home meds reviewed and reconciled. Physical Exam Const alert, oriented x3, no apparent distress and well nourished General Appearance: cooperative, comfortable, well kempt and well developed Orientation / Consciousness: awake Exam Limitations: no limitations HEENT normocephalic, head/scalp atraumatic, hearing grossly normal bilaterally, moist oral mucous membranes and oropharynx normal Mouth: oral and palatal mucosa normal Eyes PERRL, EOMs intact bilaterally and conjunctivae normal Neck no lymphadenopathy, supple and no JVD Lymph Lymphatic: no lymphadenopathy noted Resp Resp Narrative: mildly diminished breath sounds bibasally, no wheezes or crackles. On room air. Cardio regular rate, regular rhythm, S1 normal heart sound, S2 normal heart sound and no murmurs GI normal to inspection, nondistended, normoactive bowel sounds, soft to palpation, non-tender and non-distended Extremity normal to inspection, full ROM, normal capillary refill, no clubbing, cyanosis or edema and no calf tenderness General Extremity: no tenderness to palpation of joints or extremities Skin General Skin Exam: no breakdown Neuro oriented x3, CN's II-XII intact bilaterally, moves all extremities, no focal motor deficits and no sensory deficits noted Sensorium / Orientation: awake and alert Motor Exam: strength 5/5 throughout and general weakness Psych thought process normal, cooperative and affect normal Appearance: appropriate Weight / BMI Weight Weight: 181 lb 3.52 oz Body Mass Index (BMI) 30.1 ABG / Lab / Microbiology Data 06/25/24 07:42 06/25/24 07:42 Laboratory: Laboratory Results - last 24 hr 06/24/24 16:48: POC Glucose 184 H 06/24/24 20:39: POC Glucose 128 H 06/25/24 06:50: POC Glucose 118 H 06/25/24 07:42: WBC 8.6, RBC 2.56 L, Hgb 8.0 L, Hct 23.4 L, MCV 91.4, MCH 31.3, MCHC 34.2, RDW Std Deviation 44.8 H, RDW Coeff of John 13.7, Plt Count 94 L, MPV 11.0, Immature Gran % (Auto) 0.300, Neut % (Auto) 80.9 H, Lymph % (Auto) 12.3 L, Meeker % (Auto) 6.1, Eos % (Auto) 0.3, Baso % (Auto) 0.1, Absolute Neuts (auto) 7.0, Absolute Lymphs (auto) 1.06, Nucleated RBC % 0, Sodium 138, Potassium 4.4, Chloride 99, Carbon Dioxide 25.1, Anion Gap 14, BUN 110 H*, Creatinine 2.83 H, E stim Creat Clear Calc 18.84 L, Est GFR (MDRD) Non-Af 21 L, BUN/Creatinine Ratio 38.9 H, Glucose 126 H, Calcium 9.3 06/25/24 10:54: POC Glucose 161 H 06/25/24 15:40: POC Glucose 237 H Microbiology: Microbiology 06/23/24 21:15 Mucosa - Nasopharyngeal Respiratory Panel (PCR) - Final 06/23/24 20:54 Nasal Secretion MRSA (PCR) - Final 06/23/24 14:55 Mucosa - Nose SARS-CoV-2, Influenza & RSV (PCR) - Final D/C Instructions Discharge Diet: Low fat / Low cholesterol Discharge Activity: Return to Normal Activity Weight Bearing Status: Weight bearing as tolerated Call your doctor if you observe: Fever of 101 or Higher, Shortness of breath, Dizziness, Swelling in the ankles and Chest pain DC O2, CPAP, BIPAP Needs Home O2 Discharge instructions: Yes Type of respiratory needs?: Oxygen (2) Oxygen frequency: Continuous Continuous oxygen liters per minute: 2 DC home with Oxygen: Yes Home O2 MD Review: I have reviewed the oxygen testing, and the patient qualifies for home oxygen equipment and portability. The patient is mobile in the home and the community. Meaningful Use Info Meaningful Use Meaningful Use Diagnoses (Choose all that apply): CHF CHF RICH/ARB ordered at discharge?: Yes Documented LVEF (%): 55 Ischemic Stroke Statin Dosing Therapy Reference: STATIN DOSE THERAPY REFERENCE: * Patients > 75 years receive moderate or high dose statin therapy. * Patients 75 years or YOUNGER should receive HIGH intensity statin dose unless contraindicated. You will be required to document reason for non-treatment if statin daily dose does not meet guidelines. HIGH DOSE STATIN THERAPY DAILY Atorvastatin > than or = to 40 mg Rosuvastatin > than or = to 20 mg Amlodipine + Atorvastatin > than or = to 2.5/40 mg Ezetimibe + Simvastatin 10/80 mg Simvastatin 80mg Discharge Plan Admission Admit Date/Time: 06/23/24 17:35 Primary Reason for Your Visit: acute exacerbation of heart failure, COPD exacerbation Attending Provider: Sarai Alcantara Primary Care Provider: Emeka Hernandez Consulting Providers: Tracy Angel Instructions Patient Instructions: Coping with Heart Failure, COPD Controlled Breathing Dc Discharge Orders/Prescriptions Prescriptions: New prednisone 20 mg Tablet 40 mg PO BREAKFAST 4 Days Qty: 8 0RF Continued atorvastatin 80 mg tablet 80 mg PO DAILY ipratropium-albuterol 0.5 mg-3 mg(2.5 mg base)/3 mL solution for nebulization 3 ml inhalation 4X/DAY PRN (Reason: sob) Patient Comments: inhale contents of 1 vial ( 3 milliliters ) in nebulizer by mouth... (REFER TO PRESCRIPTION NOTES). liothyronine 25 mcg tablet 25 mcg PO DAILY Patient Comments: TAKE 1 TABLET BY MOUTH ONCE DAILY FOR 90 DAYS tiotropium bromide [Spiriva with HandiHaler] 18 mcg capsule, w/inhalation device 18 mcg INHALATION DAILY Patient Comments: INHALE THE CONTENTS OF 1 CAPSULE TWICE EACH TIME VIA HANDIHALER ONCE DAILY cholecalciferol (vitamin D3) 25 mcg (1,000 unit) Capsule 25 mcg PO DAILY PreserVision AREDS [id number] Capsule 1 cap PO BID Jardiance 10 mg Tablet 10 mg PO DAILY 30 Days Qty: 30 0RF glimepiride 2 mg tablet 2 mg PO DAILY Qty: 3 0RF Patient Comments: take 1 tablet by mouth once daily WITH FIRST MEAL OF THE DAY Rx Instructions: Hold if glucose less than 130 mg/dl metoprolol succinate 25 mg tablet extended release 24 hr 25 mg PO DAILY ferrous sulfate [FeroSul] 325 mg (65 mg iron) tablet 325 mg PO BID furosemide 40 mg tablet 40 mg PO DAILY lisinopril 10 mg tablet 10 mg PO DAILY pantoprazole 40 mg tablet,delayed release (DR/EC) 40 mg PO BID Qty: 60 3RF sucralfate 1 gram tablet 1 g PO Q6H 90 Days Qty: 360 3RF Discontinued torsemide 5 mg tablet 5 mg PO DAILY Referrals / Follow Up: Emeka Hernandez MD [Primary Care Provider] - Within 1 Week Disposition Disposition (needs filled in before D/C Order can be placed): Home, Self Care Charges/Coding Visit Charges Inpatient E&M: 90817 Disch Hosp >30min
--- NOTE | 2024-06-25 14:48 | PHA.DC_ITS ---
Pharmacy [facility] has performed discharge medication reconciliation and counseling for this patient. 1. Prednisone 40mg PO breakfast x 4 days The patient's discharge medication list was reviewed for discrepancies and discrepancies were resolved. The patient was counseled on the following discharge medications and changes in medications for homegoing were reviewed. The Reason for Use, instructions for use, and potential side effects were reviewed for all new medications. The patient's questions regarding all of their medications were answered. The patient was able to verbally demonstrate an understanding of their discharge medications. Patient counseled by pharmacy laboratory technician, Lalit. Medications at Discharge Home Medications atorvastatin 80 mg tablet 80 mg PO DAILY CHOLESTEROL 05/02/21 cholecalciferol (vitamin D3) 25 mcg (1,000 unit) capsule 25 mcg PO DAILY vitamin 05/02/21 ipratropium 0.5 mg-albuterol 3 mg (2.5 mg base)/3 mL nebulization soln 3 ml inhalation 4X/DAY PRN sob 05/02/21 liothyronine 25 mcg tablet 25 mcg PO DAILY THYROID 05/02/21 tiotropium bromide 18 mcg capsule with inhalation device (Spiriva with HandiHaler) 18 mcg inhalation DAILY SOB 05/02/21 vitamins A,C,Q-zxli-xnioha 4,296 mcg-226 mg-90 mg capsule (PreserVision AREDS) 1 cap PO BID vitamin 12/13/21 glimepiride 2 mg tablet 2 mg PO DAILY DM #3 tabs 03/09/23 empagliflozin 10 mg tablet (Jardiance) 10 mg PO DAILY heart failure 30 days #30 tabs 04/26/23 metoprolol succinate 25 mg tablet,extended release 24 hr 25 mg PO DAILY heart 06/27/23 ferrous sulfate 325 mg (65 mg iron) tablet (FeroSul) 325 mg PO BID supplement 11/14/23 furosemide 40 mg tablet 40 mg PO DAILY water pill 02/02/24 lisinopril 10 mg tablet 10 mg PO DAILY 02/28/24 pantoprazole 40 mg tablet,delayed release 40 mg PO BID #60 tabs 03/02/24 sucralfate 1 gram tablet 1 g PO Q6H 90 days #360 tabs 05/01/24 prednisone 20 mg tablet 40 mg (2 x 20 mg) PO BREAKFAST 4 days #8 tabs 06/25/24
[2024-06-25 15:59] LABS: Bedside Glucose 237 mg/dL (74-106)
== END 2024-06-25 17:29 | disposition home or self-care (01) | DRG 190 ==
LOC: ED 15:44 → PCU 06-24 05:42
PROVIDERS: Physician Assistant; Admitting Provider Family Medicine; Emergency Provider Emergency Medicine; PCP Family Medicine; Visit Provider Student in an Organized Health Care Education/Training Program
DX: J44.1 Chronic obstructive pulmonary disease with (acute) exacerbation (principal); I50.33 Acute on chronic diastolic (congestive) heart failure; I24.89 Other forms of acute ischemic heart disease; N18.4 Chronic kidney disease, stage 4 (severe); I13.0 Hypertensive heart and chronic kidney disease with heart failure and stage 1 through stage 4 chronic kidney disease, or unspecified chronic kidney disease; J96.11 Chronic respiratory failure with hypoxia; D69.6 Thrombocytopenia, unspecified; D63.8 Anemia in other chronic diseases classified elsewhere; Z66 Do not resuscitate; E11.22 Type 2 diabetes mellitus with diabetic chronic kidney disease; E03.9 Hypothyroidism, unspecified; I25.10 Atherosclerotic heart disease of native coronary artery without angina pectoris; D50.9 Iron deficiency anemia, unspecified; E78.00 Pure hypercholesterolemia, unspecified; K21.9 Gastro-esophageal reflux disease without esophagitis; I25.2 Old myocardial infarction; R79.89 Other specified abnormal findings of blood chemistry; Z87.891 Personal history of nicotine dependence; Z79.84 Long term (current) use of oral hypoglycemic drugs; Z86.73 Personal history of transient ischemic attack (TIA), and cerebral infarction without residual deficits; Z79.899 Other long term (current) drug therapy; Z98.49 Cataract extraction status, unspecified eye; Z99.81 Dependence on supplemental oxygen; R74.8 Abnormal levels of other serum enzymes
CPT/HCPCS: 36415; 71045; 80048; 80053; 80061; 82962; 83735; 83880; 84145; 84484; 85025; 87631; 87633; 87641; 93005; 94640; 94668; 97161; 99285; A4216; J1940

== ENCOUNTER → 2024-06-30 | Outpatient (CLI) | payer MEDICARE, SELFPAY ==
--- NOTE | 2024-06-30 15:30 | RAD_ITS ---
PROCEDURE: CHEST PA AND LATERAL 06/30/2024 REASON FOR EXAM: SHORTNESS OF BREATH TECHNIQUE: Frontal and lateral views of the chest. COMPARISON: Chest radiograph 06/23/2024. FINDINGS: Hardware: None. Heart: The heart size is normal. Mediastinum: Stable, with atherosclerotic calcifications of the thoracic aorta. Lungs: Bibasilar atelectasis. No focal consolidation, pleural effusion or pneumothorax. Bones: Degenerative changes are identified within the thoracic spine. RAD/Chest PA and Lateral IMPRESSION: NO ACUTE FINDINGS. Reading Location: [id number]
[2024-06-30 18:22] LABS: Absolute Lymphocyte Count 2.06 X10^3/uL (0.83-4.51); Absolute Neutrophil Count 11.8 X10^3/uL (2.0-7.7); Basophil# 0.01 X10^3/uL; Basophil% 0.1 % (0-1); Eosinophil# 0.54 X10^3/uL; Eosinophils% 3.4 % (0-5); Hematocrit 29.6 % (40-54); Lymphocyte # 2.06 X10^3/ul (0.83-4.51); Lymphocyte % 13.2 % (19-41); Mean Corp Hgb Conc 33.8 g/dL (32-36); Mean Corpuscular Hgb 31.3 pg (27.0-32.0); Mean Corpuscular Volume 92.8 fL (80-94); Mean Platelet Vol. 11.1 fl (6.2-12.0); Monocyte# 1.18 X10^3/uL; Monocyte% 7.5 % (0-10); NRBC Flagged by Analyzer 0 % (0-5); Neutrophil # 11.79 X10^3/uL (2.7-7.7); Neutrophil % 75.3 % (47-70); Platelet Count 174 K/mm3 (150-450); RBC Distribution Width CV 13.2 % (11.6-14.6); RBC Distribution Width SD 44.5 fl (35.1-43.9); Red Blood Count 3.19 M/mm3 (4.6-6.2); White Blood Count 15.7 K/mm3 (4.4-11.0)
[2024-06-30 19:42] LABS: Pro- Brain NATRIURETIC PEPTIDE 3454 pg/mL (<=1800)
[2024-06-30 21:31] LABS: ALB/GLOB Ratio 1.5 RATIO (0.9-2.4); AST(SGOT) 61 U/L (<=37); Alanine Aminotransfer ALT/SGPT 149 U/L (<=46); Albumin, Serum 3.9 g/dL (3.4-4.8); Alkaline Phosphatase 80 U/L (40-129); Anion Gap 16 (5-15); BUN 116 mg/dL (4-19); Calcium,Total 9.1 mg/dL (7.6-11.0); Carbon Dioxide 22.7 mmol/L (21.0-32.0); Chloride 102 mmol/L (98-108); Creatinine, Serum 3.22 mg/dL (0.70-1.20); EST Glomerular Filtration Rate 18 (>60); Globulin 2.7 g/dL (2.2-4.2); Glucose 257 mg/dL (70-99); Potassium 3.6 mmol/L (3.3-5.1); Protein, Total 6.6 g/dL (5.9-8.4); Sodium Level 141 mmol/L (133-145); Total Bilirubin 0.34 mg/dL (0.00-1.30)
== END | disposition home or self-care (01) ==
LOC: MTLAB 15:23
PROVIDERS: PCP Family Medicine; Referring Provider Family Medicine; Visit Provider Family Medicine
DX: R06.02 Shortness of breath (principal); I50.9 Heart failure, unspecified
CPT/HCPCS: 36415; 71046; 80053; 83880; 85025

== ENCOUNTER → 2024-07-04 | Outpatient (CLI) | payer MEDICARE, SELFPAY ==
[2024-07-04 17:54] LABS: PTHIN 154 pg/mL (11-61)
[2024-07-04 19:01] LABS: Anion Gap 14 (5-15); BUN 106 mg/dL (4-19); BUN/Creat Ratio 36.2 RATIO (10-20); Calcium,Total 8.9 mg/dL (7.6-11.0); Carbon Dioxide 23.7 mmol/L (21.0-32.0); Chloride 108 mmol/L (98-108); Creatinine, Serum 2.93 mg/dL (0.70-1.20); EST Glomerular Filtration Rate 20 (>60); Glucose 157 mg/dL (70-99); Potassium 4.1 mmol/L (3.3-5.1); Sodium Level 145 mmol/L (133-145)
== END | disposition home or self-care (01) ==
LOC: MTLAB 14:48
PROVIDERS: PCP Family Medicine; Referring Provider Internal Medicine Nephrology; Visit Provider Internal Medicine Nephrology
DX: N18.32 Chronic kidney disease, stage 3b (principal)
CPT/HCPCS: 36415; 80048; 83970

== ENCOUNTER → 2024-08-01 | Outpatient (CLI) | payer MEDICARE, SELFPAY ==
[2024-08-01 13:27] LABS: Albumin, Serum 3.9 g/dL (3.4-4.8); Anion Gap 12 (5-15); BUN 58 mg/dL (4-19); BUN/Creat Ratio 27.6 RATIO (10-20); Calcium,Total 9.8 mg/dL (7.6-11.0); Carbon Dioxide 31.1 mmol/L (21.0-32.0); Chloride 101 mmol/L (98-108); Creatinine, Serum 2.08 mg/dL (0.70-1.20); EST Glomerular Filtration Rate 31 (>60); Glucose 162 mg/dL (70-99); Phosphorus 3.3 mg/dL (2.7-4.5); Potassium 3.7 mmol/L (3.3-5.1); Sodium Level 145 mmol/L (133-145)
== END | disposition home or self-care (01) ==
LOC: MTLAB 10:27
PROVIDERS: PCP Family Medicine; Referring Provider Internal Medicine Nephrology; Visit Provider Internal Medicine Nephrology
DX: N17.1 Acute kidney failure with acute cortical necrosis (principal); N18.4 Chronic kidney disease, stage 4 (severe)
CPT/HCPCS: 36415; 80069

== ENCOUNTER 2024-08-20 20:30 | Observation (INO) | payer MEDICARE, SELFPAY ==
[2024-08-20] VITALS (9 sets, daily range): BP systolic 119–209; BP diastolic 49–84; PULSE 93–131; RESP 19–34; TEMP 36.3–36.7; O2SAT 95–97
--- NOTE | 2024-08-20 21:01 | ED.VIS.DYS ---
HPI History of Present Illness Chief Complaint: Shortness of Breath Informant: patient and EMS Onset/Context/Timing Onset: Today Context: gradual Timing: Continuous Quality: Positive for Dyspnea on exertion and Orthopnea Worsened by: Exertion and Lying flat Relieved by: - (Torsemide) Associated Symptoms Negative for cough, rhinorrhea, post nasal drip, ear pain, fever, sore throat, chills, clear sputum, white sputum, yellow sputum or green sputum Chest Pain: Positive for None Narrative Narrative: Patient presents with shortness of breath that became worse today. Patient states his medications have been adjusted recently. Patient states he was recently taken off his furosemide and had his torsemide increased to 10 mg. Patient states that since he had been on 40 mg of Lasix, he did not feel the increase of his torsemide to 10 mg was enough to get his fluid off. Patient states he called his physician and told him he was going to start back on his Lasix. Patient states his breathing is worse with any exertion and with laying flat. Patient states he normally sleeps in his recliner. Patient denies any chest pain. Patient denies any fevers or chills. Patient denies any cough. [facility] Medical History Chronic kidney disease Chronic anemia COPD (chronic obstructive pulmonary disease) Anemia Acute dyspnea Upper GI bleed History of valvular heart disease Acute on chronic anemia Acute dyspnea Acute on chronic renal insufficiency Acute on chronic anemia Symptomatic anemia Abnormal ECG Elevated troponin Shortness of breath Loss of hearing No natural teeth Wears glasses Poor historian Thyroid disease Low iron High cholesterol Syncope History of GI bleed Shortness of breath on exertion History of echocardiogram Cardiology follow-up encounter Symptomatic anemia Acute upper gastrointestinal bleeding Diabetes Kidney disease Former smoker On home oxygen therapy TIA (transient ischemic attack) Myocardial infarct Hypertension Anemia Diastolic CHF Acute and chronic respiratory failure with hypoxia History of CAD (coronary artery disease) Nonrheumatic aortic (valve) stenosis Mild left ventricular hypertrophy History of left heart catheterization (LHC) (~03/15/22) Essential hypertension Atherosclerotic heart disease of [place] coronary artery without angina pectoris Renal insufficiency Aortic valve stenosis, acquired CAD (coronary artery disease) Non-ST elevation (NSTEMI) myocardial infarction COPD (chronic obstructive pulmonary disease) Polyarthralgia Obesity (BMI 30.0-34.9) Diabetes mellitus, type 2 Former tobacco use Obesity Hypothyroidism HLD (hyperlipidemia) HTN (hypertension) Chronic respiratory failure with hypoxia COPD (chronic obstructive pulmonary disease) Home Medications ?Medication ?Instructions ?Recorded ?Last Taken ?Type atorvastatin 80 mg tablet 80 mg PO DAILY CHOLESTEROL 05/02/21 02/27/24 History cholecalciferol (vitamin D3) 25 25 mcg PO DAILY vitamin 05/02/21 02/28/24 History mcg (1,000 unit) capsule ipratropium 0.5 mg-albuterol 3 mg 3 ml inhalation 4X/DAY PRN sob 05/02/21 11/18/23 History (2.5 mg base)/3 mL nebulization soln liothyronine 25 mcg tablet 25 mcg PO DAILY THYROID 05/02/21 02/28/24 History tiotropium bromide 18 mcg capsule 18 mcg inhalation DAILY SOB 05/02/21 02/28/24 History with inhalation device (Spiriva with HandiHaler) vitamins A,C,W-[id number]-uavifn 4,296 1 cap PO BID vitamin 12/13/21 02/28/24 History mcg-226 mg-90 mg capsule (PreserVision AREDS) glimepiride 2 mg tablet 2 mg PO DAILY DM #3 tabs 03/09/23 02/28/24 Rx empagliflozin 10 mg tablet 10 mg PO DAILY heart failure 30 04/26/23 12/06/23 Rx (Jardiance) days #30 tabs metoprolol succinate 25 mg 25 mg PO DAILY heart 06/27/23 02/28/24 History tablet,extended release 24 hr ferrous sulfate 325 mg (65 mg 325 mg PO BID supplement 11/14/23 02/28/24 History iron) tablet (FeroSul) furosemide 40 mg tablet 40 mg PO DAILY water pill 02/02/24 02/28/24 History lisinopril 10 mg tablet 10 mg PO DAILY 02/28/24 02/27/24 History Held on 07/02/24. Instructions: Ordered pantoprazole 40 mg tablet,delayed 40 mg PO BID reflux #60 tabs 03/02/24 Unknown Rx release sucralfate 1 gram tablet 1 g PO Q6H stomach 90 days #360 05/01/24 Unknown Rx tabs oxycodone 5 mg tablet 2.5 mg PO BID PRN shortness of 07/14/24 Unknown History breath torsemide 5 mg tablet 5 mg PO DAILY 07/15/24 Unknown History Allergy/AdvReac Type Severity Reaction Status Date / Time aliskiren (From [place]alt[place]) Allergy Intermediate Other Verified 08/20/24 20:37 valsartan (From [place]) Allergy Intermediate Other Verified 08/20/24 20:37 codeine AdvReac Upset Verified 08/20/24 20:37 Stomach Family History Mother CVA (cerebral vascular accident) Heart disease Myocardial infarction Hx of CABG Hypertension Father CVA (cerebral vascular accident) Heart disease Surgical History S/P cataract extraction Social History household members: none housing: house Smoking Status: Former smoker how long ago did patient quit smoking: Quit 2010, prior 1 ppd since teen. alcohol intake: former year quit: 2010 substance use type: does not use ROS ROS ED Constitutional Constitutional ED: Denies chills or fever(s) Eyes Eyes: Denies blurry vision or change in vision ENT ENT ED: Denies rhinorrhea or sore throat Cardiovascular Cardiovascular: Denies chest pain or palpitations Respiratory/Chest Respiratory/Chest: Reports dyspnea; Denies cough Gastrointestinal Gastrointestinal: Denies nausea or vomiting Genitourinary Genitourinary ED: Denies dysuria or hematuria Musculoskeletal Musculoskeletal: Denies back pain or neck pain Integumentary Denies abscess or rash Neurologic Neurologic: Denies headache(s) or weakness Allergic/Immunologic Allergic/Immunologic ED: Denies mouth swelling or urticaria EXAM Physical Exam Const Vital Signs: 08/20/24 20:31 08/20/24 20:37 08/20/24 21:15 Temperature 98.1 F Temperature Source Oral Pulse Rate 105 H 94 Respiratory Rate 34 H 23 H Respiratory Effort Short of Breath Labored Respiratory Depth Deep Respiratory Pattern Tachypnea Blood Pressure 209/77 H 172/69 H Blood Pressure Mean 121 103 Pulse Ox 96 95 Oxygen Delivery Method Nasal Cannula Nasal Cannula Oxygen Flow Rate (L/min) 4 4 08/20/24 21:34 08/20/24 21:35 08/20/24 23:10 Temperature 98.1 F 98.0 F Temperature Source Oral Oral Pulse Rate 93 131 H 113 H Respiratory Rate 20 H 22 H 19 H Respiratory Effort Respiratory Depth Respiratory Pattern Blood Pressure 121/84 H 129/49 H Blood Pressure Mean 96 75 Pulse Ox 95 95 Oxygen Delivery Method Nasal Cannula Oxygen Flow Rate (L/min) 08/20/24 23:16 08/20/24 23:35 Temperature Temperature Source Pulse Rate 112 H 113 H Respiratory Rate 20 H Respiratory Effort Respiratory Depth Respiratory Pattern Blood Pressure 119/56 L Blood Pressure Mean Pulse Ox Oxygen Delivery Method Oxygen Flow Rate (L/min) Positive well nourished and well developed General Appearance ED: well developed and NAD HEENT Reports moist mucous membranes Neck no JVD Resp normal respiratory effort Auscultation: rales bilateral base and wheezes expiratory wheezes and throughout Cardio regular rate and regular rhythm GI non-tender and non-distended Auscultation: normoactive bowel sounds Palpation: soft Extremity Extremity Narrative: There is trace edema of the lower extremities bilaterally. General Extremety ED: Yes edema; Negative for tenderness General Extremity: edema Neuro oriented x3, CN's II-XII intact bilaterally and no sensory deficits noted [place] Coma Scale: document GCS findings Spontaneous Obeys Commands Oriented 15 Sensorium / Orientation: alert Speech: speech normal Motor Exam: strength 5/5 throughout Psych mental status grossly normal MDM MDM MDM Narrative Medical decision making narrative: Differential diagnosis includes COPD exacerbation, congestive heart failure, pneumonia, bronchitis, acute kidney injury, electrolyte abnormality, cardiac dysrhythmia, and cardiac ischemia. EKG will be obtained to assess for cardiac dysrhythmia and cardiac ischemia. Chest x-ray will be obtained to assess for pneumonia, bronchitis, and congestive heart failure. CBC will be obtained to assess for leukocytosis and anemia. Basic metabolic profile will be obtained to assess for electrolyte abnormality and renal function. High-sensitivity troponin will be obtained to assess for cardiac ischemia. 2-hour repeat high-sensitivity troponin will be obtained to assess for ongoing cardiac ischemia. BNP will be obtained to assess for congestive heart failure. History & Record Review Additional record(s) reviewed:: Prior labs Lab Data Attestation: I reviewed the patient's lab results. Lab results narrative: CBC was reviewed. There is a mild anemia with a hemoglobin of 10.3 and a hematocrit of 32.2. This was unchanged compared to previous results. Basic metabolic profile was reviewed. BUN was 52 and creatinine was 2.3. These are consistent with previous results. High-sensitivity troponin was reviewed and was elevated at 72. BNP was reviewed and was elevated at 3982. COVID-19 PCR was reviewed and was negative. Influenza PCR was reviewed and was negative for influenza A and influenza B. RSV PCR was reviewed and was negative. Labs: Laboratory Results - last 24 hr 08/20/24 20:50 WBC 6.5 RBC 3.48 L Hgb 10.3 L Hct 32.2 L MCV 92.5 MCH 29.6 MCHC 32.0 RDW Std Deviation 41.2 RDW Coeff of John 12.3 Plt Count 111 L MPV 10.9 Immature Gran % (Auto) 0.300 Neut % (Auto) 74.6 H Lymph % (Auto) 13.2 L Hill % (Auto) 7.4 Eos % (Auto) 4.0 Baso % (Auto) 0.5 Absolute Neuts (auto) 4.8 Absolute Lymphs (auto) 0.85 Nucleated RBC % 0 Sodium 144 Potassium 4.7 Chloride 101 Carbon Dioxide 30.5 Anion Gap 13 BUN 52 H Creatinine 2.30 H Est GFR (MDRD) Non-Af 27 L BUN/Creatinine Ratio 22.5 H Glucose 114 H Calcium 9.6 Troponin T High Sens 72 H* D NT pro BNP II 3982 H Radiography Chest X-Ray - ED: 2 View, Read by ED Physician, Read by Radiologist and CHF Diagnostic Testing: Clinical Impression(s) from Imaging Studies Chest X-Ray 08/20/24 22:00 IMPRESSION: Findings favoring mild edema. Reading Location: [place] [address] [place] and lateral chest x-ray was obtained. There are 2 views. On my independent interpretation, lung hollis mild interstitial edema. There is normal cardiac silhouette. Bony thorax is normal. Radiologist also interpreted the x-ray and agrees. EKG Initial EKG: Attestation: I personally reviewed and interpreted this EKG as follows: Interpretation: Sinus Rhythm (With first-degree AV block with a rate of 99) and Non-Specific ST Changes Comments: EKG was obtained. On my independent interpretation, it shows a sinus rhythm with a first-degree AV block with a rate of 99. MN interval was prolonged at 230 ms. QRS interval was normal at 82 ms. QTc interval was normal at 436 ms. There is borderline left axis deviation at -17. There is voltage criteria for left ventricular hypertrophy. There are nonspecific ST-T wave changes. Prior EKG tracings: available for review Prior: Unchanged (06/23/2024) Management Discussion w/another healthcare provider: Hospitalist Treatment and Re-Evaluation :: Patient was given a DuoNeb and albuterol aerosols initially. Patient started to feel better after this. Patient started to having some increasing wheezing. Patient was given a repeat albuterol aerosol. Patient was also given aspirin. Patient was given a dose of Lasix and Nitropaste. Patient was advised of his findings. Patient was advised of the need for admission to the hospital. Patient is agreeable with this. Case was discussed with the hospitalist. She will admit the patient to her service. Patient understood and was agreeable with the plan. All questions were answered. Discharge Plan Triage Chief Complaint: Shortness of Breath ED Provider: Eyal Calderon Dx/Rx/DC Orders Clinical Impression: Congestive heart failure, COPD exacerbation, Hypoxemia Prescriptions: No Action oxycodone 5 mg tablet 2.5 mg PO BID PRN (Reason: shortness of breath) atorvastatin 80 mg tablet 80 mg PO DAILY ipratropium-albuterol 0.5 mg-3 mg(2.5 mg base)/3 mL solution for nebulization 3 ml inhalation 4X/DAY PRN (Reason: sob) Patient Comments: inhale contents of 1 vial ( 3 milliliters ) in nebulizer by mouth... (REFER TO PRESCRIPTION NOTES). liothyronine 25 mcg tablet 25 mcg PO DAILY Patient Comments: TAKE 1 TABLET BY MOUTH ONCE DAILY FOR 90 DAYS tiotropium bromide [Spiriva with HandiHaler] 18 mcg capsule, w/inhalation device 18 mcg INHALATION DAILY Patient Comments: INHALE THE CONTENTS OF 1 CAPSULE TWICE EACH TIME VIA HANDIHALER ONCE DAILY cholecalciferol (vitamin D3) 25 mcg (1,000 unit) Capsule 25 mcg PO DAILY PreserVision AREDS [id number] Capsule 1 cap PO BID Jardiance 10 mg Tablet 10 mg PO DAILY 30 Days Qty: 30 0RF glimepiride 2 mg tablet 2 mg PO DAILY Qty: 3 0RF Patient Comments: take 1 tablet by mouth once daily WITH FIRST MEAL OF THE DAY Rx Instructions: Hold if glucose less than 130 mg/dl metoprolol succinate 25 mg tablet extended release 24 hr 25 mg PO DAILY ferrous sulfate [FeroSul] 325 mg (65 mg iron) tablet 325 mg PO BID torsemide 5 mg tablet 5 mg PO DAILY furosemide 40 mg tablet 40 mg PO DAILY lisinopril 10 mg tablet 10 mg PO DAILY pantoprazole 40 mg tablet,delayed release (DR/EC) 40 mg PO BID Qty: 60 3RF sucralfate 1 gram tablet 1 g PO Q6H 90 Days Qty: 360 3RF Primary Care Provider: Emeka Hernandez Referrals: Emeka Hernandez MD [Primary Care Provider] - Print Language: Swedish Disposition Disposition: Acute Care Hospital [facility]
--- NOTE | 2024-08-20 21:28 | EKG12_ITS ---
Test Reason : SOB Blood Pressure : */* mmHG Vent. Rate : 99 BPM Atrial Rate : 99 BPM P-R Int : 230 ms QRS Dur : 82 ms QT Int : 340 ms P-R-T Axes : 98 -17 52 degrees QTcB Int : 436 ms Sinus rhythm with 1st degree A-V block Minimal voltage criteria for LVH, may be normal variant ( R in aVL ) Nonspecific ST and T wave abnormality Abnormal ECG Confirmed by Trell Kendrick ([id number]), writer editor ZACKARY MARTINEZ ([id number]) on 08/21/2024 10:19:13 AM Referred By: Eyal Calderon Confirmed By: Trell Kendrick
--- NOTE | 2024-08-20 21:28 | EKG12_ITS ---
Test Reason : SOB Blood Pressure : */* mmHG Vent. Rate : 99 BPM Atrial Rate : 99 BPM P-R Int : 230 ms QRS Dur : 82 ms QT Int : 340 ms P-R-T Axes : 98 -17 52 degrees QTcB Int : 436 ms Sinus rhythm with 1st degree A-V block Minimal voltage criteria for LVH, may be normal variant ( R in aVL ) Nonspecific ST and T wave abnormality Abnormal ECG Confirmed by Trell Kendrick [id number]), field map editor ZACKARY MARTINEZ ([id number]) on 08/21/2024 10:19:13 AM Referred By: Eyal Calderon Confirmed By: Trell Kendrick
[2024-08-20] MEDS: Albuterol 2.5 MG/3 ML VIAL.NEB. INHALATION ×2 (21:34→23:17)
[2024-08-20] MEDS: Ipratropium/Albuterol Sulfate 3 ML AMPUL.NEB INHALATION (21:34)
[2024-08-20 21:54] LABS: Absolute Lymphocyte Count 0.85 X10^3/uL (0.83-4.51); Absolute Neutrophil Count 4.8 X10^3/uL (2.0-7.7); Basophil# 0.03 X10^3/uL; Basophil% 0.5 % (0-1); Eosinophil# 0.26 X10^3/uL; Hematocrit 32.2 % (40-54); Hemoglobin 10.3 g/dL (13.0-16.5); Lymphocyte # 0.85 X10^3/ul (0.83-4.51); Lymphocyte % 13.2 % (19-41); Mean Corpuscular Hgb 29.6 pg (27.0-32.0); Mean Corpuscular Volume 92.5 fL (80-94); Mean Platelet Vol. 10.9 fl (6.2-12.0); Monocyte# 0.48 X10^3/uL; Monocyte% 7.4 % (0-10); NRBC Flagged by Analyzer 0 % (0-5); Neutrophil # 4.82 X10^3/uL (2.7-7.7); Neutrophil % 74.6 % (47-70); Platelet Count 111 K/mm3 (150-450); RBC Distribution Width CV 12.3 % (11.6-14.6); RBC Distribution Width SD 41.2 fl (35.1-43.9); Red Blood Count 3.48 M/mm3 (4.6-6.2); White Blood Count 6.5 K/mm3 (4.4-11.0)
--- NOTE | 2024-08-20 22:00 | RAD_ITS ---
PROCEDURE: CHEST PA AND LATERAL 08/20/2024 REASON FOR EXAM: DYSPNEA TECHNIQUE: Frontal and lateral views of the chest. COMPARISON: 06/30/2024. FINDINGS: The heart is borderline enlarged. Mild vascular indistinctness of the lung bases favoring mild edema. No acute osseous abnormalities. RAD/Chest PA and Lateral IMPRESSION: Findings favoring mild edema. Reading Location: [place] [id number]
--- NOTE | 2024-08-20 22:00 | RAD_ITS ---
PROCEDURE: CHEST PA AND LATERAL 08/20/2024 REASON FOR EXAM: DYSPNEA TECHNIQUE: Frontal and lateral views of the chest. COMPARISON: 06/30/2024. FINDINGS: The heart is borderline enlarged. Mild vascular indistinctness of the lung bases favoring mild edema. No acute osseous abnormalities. RAD/Chest PA and Lateral IMPRESSION: Findings favoring mild edema. Reading Location: [place] [address]
[2024-08-20 22:12] LABS: Anion Gap 13 (5-15); BUN 52 mg/dL (4-19); BUN/Creat Ratio 22.5 RATIO (10-20); Calcium,Total 9.6 mg/dL (7.6-11.0); Carbon Dioxide 30.5 mmol/L (21.0-32.0); Chloride 101 mmol/L (98-108); EST Glomerular Filtration Rate 27 (>60); Glucose 114 mg/dL (70-99); Potassium 4.7 mmol/L (3.3-5.1); Sodium Level 144 mmol/L (133-145)
[2024-08-20 22:19] LABS: Pro- Brain NATRIURETIC PEPTIDE 3982 pg/mL (<=1800); Troponin T High Sensitivity 72 ng/L (<=22)
[2024-08-20] MEDS: Furosemide 40 MG/4 ML Vial IV (23:15)
[2024-08-20] MEDS: Nitroglycerin Oint 1 INCH PACKET TD (23:16)
--- NOTE | 2024-08-20 23:33 | PCM.HP.STD ---
HPI - General General Date of Admission: 08/20/24 Date of Service: 08/20/24 Chief Complaint: Shortness of breath HPI Narrative BEULAH BRIGHT, is a 84 M who presented to the emergency department [facility] on 08/20/2024 with chief complaint of dyspnea on exertion and orthopnea. Patient has known history of HFpEF that is fairly significant. 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 Patient reports his breathing is worse with any exertion and with trying to lie flat. He is sleeping in a recliner and this is typical behavior for him. He has no chest pain. He is not denied any fever or chills and has no cough. He denies any wheezing. He is on oxygen at baseline 1.5 to 2 L. Patient had no respiratory illness symptoms and has had no sick contacts. Vital signs on presentation showed temperature of 98.1, heart rate 105, respiratory was 34, blood pressure was 209/77 and pulse ox was 96% on 4 L nasal cannula. CBC shows a chronic stable anemia with a hemoglobin of 10.3 and chronic stable thrombocytopenia with a platelet count of 111,000. He does have a left shift. No white counts present. Chemistry panel shows chronic stable BUN and creatinine elevation. Initial troponin is 72 with a delta of 85. proBNP is 3982. Chest x-ray is consistent with volume overload. EKG shows no signs of acute ischemia. [facility] Medical History Chronic kidney disease Chronic anemia COPD (chronic obstructive pulmonary disease) Anemia Acute dyspnea Upper GI bleed History of valvular heart disease Acute on chronic anemia Acute dyspnea Acute on chronic renal insufficiency Acute on chronic anemia Symptomatic anemia Abnormal ECG Elevated troponin Shortness of breath Loss of hearing No natural teeth Wears glasses Poor historian Thyroid disease Low iron High cholesterol Syncope History of GI bleed Shortness of breath on exertion History of echocardiogram Cardiology follow-up encounter Symptomatic anemia Acute upper gastrointestinal bleeding Diabetes Kidney disease Former smoker On home oxygen therapy TIA (transient ischemic attack) Myocardial infarct Hypertension Anemia Diastolic CHF Acute and chronic respiratory failure with hypoxia History of CAD (coronary artery disease) Nonrheumatic aortic (valve) stenosis Mild left ventricular hypertrophy History of left heart catheterization (LHC) (~03/15/22) Essential hypertension Atherosclerotic heart disease of [place] coronary artery without angina pectoris Renal insufficiency Aortic valve stenosis, acquired CAD (coronary artery disease) Non-ST elevation (NSTEMI) myocardial infarction COPD (chronic obstructive pulmonary disease) Polyarthralgia Obesity (BMI 30.0-34.9) Diabetes mellitus, type 2 Former tobacco use Obesity Hypothyroidism HLD (hyperlipidemia) HTN (hypertension) Chronic respiratory failure with hypoxia COPD (chronic obstructive pulmonary disease) Home Medications ?Medication ?Instructions ?Recorded ?Last Taken ?Type atorvastatin 80 mg tablet 80 mg PO DAILY CHOLESTEROL 05/02/21 02/27/24 History cholecalciferol (vitamin D3) 25 25 mcg PO DAILY vitamin 05/02/21 02/28/24 History mcg (1,000 unit) capsule ipratropium 0.5 mg-albuterol 3 mg 3 ml inhalation 4X/DAY PRN sob 05/02/21 11/18/23 History (2.5 mg base)/3 mL nebulization soln liothyronine 25 mcg tablet 25 mcg PO DAILY THYROID 05/02/21 02/28/24 History tiotropium bromide 18 mcg capsule 18 mcg inhalation DAILY SOB 05/02/21 02/28/24 History with inhalation device (Spiriva with HandiHaler) vitamins A,C,B-dtjj-spmoja 4,296 1 cap PO BID vitamin 12/13/21 02/28/24 History mcg-226 mg-90 mg capsule (PreserVision AREDS) glimepiride 2 mg tablet 2 mg PO DAILY DM #3 tabs 03/09/23 02/28/24 Rx empagliflozin 10 mg tablet 10 mg PO DAILY heart failure 30 04/26/23 12/06/23 Rx (Jardiance) days #30 tabs metoprolol succinate 25 mg 25 mg PO DAILY heart 06/27/23 02/28/24 History tablet,extended release 24 hr ferrous sulfate 325 mg (65 mg 325 mg PO BID supplement 11/14/23 02/28/24 History iron) tablet (FeroSul) furosemide 40 mg tablet 40 mg PO DAILY water pill 02/02/24 02/28/24 History lisinopril 10 mg tablet 10 mg PO DAILY 02/28/24 02/27/24 History Held on 07/02/24. Instructions: Ordered pantoprazole 40 mg tablet,delayed 40 mg PO BID reflux #60 tabs 03/02/24 Unknown Rx release sucralfate 1 gram tablet 1 g PO Q6H stomach 90 days #360 05/01/24 Unknown Rx tabs oxycodone 5 mg tablet 2.5 mg PO BID PRN shortness of 07/14/24 Unknown History breath torsemide 5 mg tablet 5 mg PO DAILY 07/15/24 Unknown History Allergy/AdvReac Type Severity Reaction Status Date / Time aliskiren (From [place]alt[place]a) Allergy Intermediate Other Verified 08/20/24 20:37 valsartan (From [place]a) Allergy Intermediate Other Verified 08/20/24 20:37 codeine AdvReac Upset Verified 08/20/24 20:37 Stomach Family History Mother CVA (cerebral vascular accident) Heart disease Myocardial infarction Hx of CABG Hypertension Father CVA (cerebral vascular accident) Heart disease Surgical History S/P cataract extraction Social History household members: none housing: house Smoking Status: Former smoker how long ago did patient quit smoking: Quit 2011, prior 1 ppd since teen. alcohol intake: former year quit: 2010 substance use type: does not use ROS Constitutional Constitutional: Reports change in weight; Denies anorexia, chills, fatigue, fever(s), malaise, night sweats, weakness or other Eyes Eyes: Denies blurry vision, change in eye color, change in vision, discharge from eye(s), double vision, erythema, eye pain, loss of vision or other ENT HEENT: Denies abnormal hearing, dysphagia, ear pain, epistaxis, headache(s), hearing loss, nasal congestion, nasal discharge, post nasal drip, sinus pressure, sore throat or other Cardiovascular Cardiovascular: Reports dyspnea on exertion, edema and orthopnea; Denies chest pain, claudication, lightheadedness, palpitations, paroxysmal nocturnal dyspnea, rapid heart rate, syncope or other Respiratory/Chest Respiratory/Chest: Reports shortness of breath with exertion; Denies cough, dyspnea, excessive phlegm production, hemoptysis, productive cough, shortness of breath at rest, wheezing or other Gastrointestinal Gastrointestinal: Denies abdominal pain, coffee ground emesis, constipation, diarrhea, dyspepsia, hematemesis, hematochezia, loose stools, melena, nausea, vomiting or other Genitourinary Genitourinary: Denies burning urination, difficulty urinating, dysuria, hematuria, nocturia, urinary frequency, urinary hesitancy, urinary incontinence, urinary urgency or other Musculoskeletal Musculoskeletal: Reports back pain, joint pain and joint stiffness; Denies arthralgias, joint swelling, myalgias, neck pain or other Neurologic Neurologic: Denies abnormal gait, abnormal speech, confusion, disequilibrium, dizziness, focal weakness, headache(s), numbness, paresthesias, seizure-like activity, seizures, syncope, tingling, tremor(s) or other Psychiatric Psychiatric: Denies anxiety, depression, homicidal ideation, suicidal ideation or other Endocrine Endocrinology: Denies change in body appearance, cold intolerance, excessive sweating, heat intolerance, polydipsia, polyuria or other Hematologic/Lymphatic Hematologic/Lymphatic: Denies anemia, easy bleeding, easy bruising, lymphadenopathy or other Allergic/Immunologic Allergic/Immunologic: Denies rhinitis, hives, eczemia, asthma or other Vital Signs Vital Signs Vital Signs: 08/20/24 20:31 08/20/24 20:37 08/20/24 21:15 Temperature 98.1 F Temperature Source Oral Pulse Rate 105 H 94 Respiratory Rate 34 H 23 H Respiratory Effort Short of Breath Labored Respiratory Depth Deep Respiratory Pattern Tachypnea Blood Pressure 209/77 H 172/69 H Blood Pressure Mean 121 103 Pulse Ox 96 95 Oxygen Delivery Method Nasal Cannula Nasal Cannula Oxygen Flow Rate (L/min) 4 4 08/20/24 21:34 08/20/24 21:35 08/20/24 23:10 Temperature 98.1 F 98.0 F Temperature Source Oral Oral Pulse Rate 93 131 H 113 H Respiratory Rate 20 H 22 H 19 H Respiratory Effort Respiratory Depth Respiratory Pattern Blood Pressure 121/84 H 129/49 H Blood Pressure Mean 96 75 Pulse Ox 95 95 Oxygen Delivery Method Nasal Cannula Oxygen Flow Rate (L/min) 08/20/24 23:16 Temperature Temperature Source Pulse Rate 112 H Respiratory Rate Respiratory Effort Respiratory Depth Respiratory Pattern Blood Pressure 119/56 L Blood Pressure Mean Pulse Ox Oxygen Delivery Method Oxygen Flow Rate (L/min) Physical Exam Const alert, oriented x3 and well nourished; Negative for no apparent distress, average body habitus or healthy appearing Constitutional Narrative: Obese, elderly, white male, sitting up on the edge of the bed, mild distress but no signs of extremis with regards to respiratory status General Appearance: cooperative HEENT normocephalic, head/scalp atraumatic and moist oral mucous membranes HEENT Narrative: Moderate hearing loss, Mallampati 3, no thrush Eyes conjunctivae normal Eyes Narrative: No scleral icterus Neck supple Neck Narrative: Neck is short and thick, neck veins are slightly distended Resp No normal respiratory effort, no retractions, No no use of accessory muscles and No clear to auscultation bilaterally Resp Narrative: Tachypnea, crackles at bases with scattered inspiratory and scattered and expiratory wheeze Auscultation: crackles and wheezes; Negative for rhonchi Cardio regular rhythm, S1 normal heart sound, S2 normal heart sound, no murmurs, no rub, no gallops and no clicks Cardio Narrative: Mild tachycardia GI normal to inspection, nondistended, normoactive bowel sounds, soft to palpation and non-tender GI Narrative: Protuberant abdomen Extremity Extremity Narrative: 1+ bilateral lower extremity pedal edema, no cyanosis or clubbing, radial and pedal pulses are 2+ Skin no jaundice, no petechiae and no mottling Neuro oriented x3, moves all extremities and no focal motor deficits Speech: speech normal Psych affect normal Psych Narrative: Very pleasant, interacts appropriately Results Lab / Micro Data 08/20/24 20:50 08/20/24 20:50 Labs: Laboratory Results - last 24 hr 08/20/24 20:50: WBC 6.5, RBC 3.48 L, Hgb 10.3 L, Hct 32.2 L, MCV 92.5, MCH 29.6, MCHC 32.0, RDW Std Deviation 41.2, RDW Coeff of John 12.3, Plt Count 111 L, MPV 10.9, Immature Gran % (Auto) 0.300, Neut % (Auto) 74.6 H, Lymph % (Auto) 13.2 L, [place] % (Auto) 7.4, Eos % (Auto) 4.0, Baso % (Auto) 0.5, Absolute Neuts (auto) 4.8, Absolute Lymphs (auto) 0.85, Nucleated RBC % 0, Sodium 144, Potassium 4.7, Chloride 101, Carbon Dioxide 30.5, Anion Gap 13, BUN 52 H, Creatinine 2.30 H, Est GFR (MDRD) Non-Af 27 L, BUN/Creatinine Ratio 22.5 H, Glucose 114 H, Calcium 9.6, Troponin T High Sens 72 H* D, NT pro BNP II 3982 H Micro: Microbiology 08/20/24 21:39 Mucosa - Nose SARS-CoV-2, Influenza & RSV (PCR) - Final Imaging Radiology Impression Chest X-Ray 08/20/24 22:00 IMPRESSION: Findings favoring mild edema. Reading Location: [place] [id number] Assessment & Plan Assessment/Plan (1) Acute and chronic respiratory failure with hypoxia: (2) Acute on chronic heart failure with preserved ejection fraction (HFpEF): (3) Tachypnea: (4) Elevated brain natriuretic peptide (BNP) level: PLAN: Plan Acute hypoxia secondary to acute on chronic heart failure with preserved ejection fraction/possible COPD exacerbation - Markedly elevated BNP on admission - COVID/flu/RSV negative - Respiratory viral panel is pending - Scheduled and as needed nebulizers- - Hold off on steroids for now and see our response to diuretics - Patient with known frequent admissions for heart failure with preserved ejection fraction - Patient states his medications were changed recently needed and filled with torsemide was not effective diuretic of the Lasix - Bumex IV 2 mg twice daily - Check echocardiogram as has not had one in the last 6 months - Continue Jardiance - Currently requiring 3 L supplemental oxygen and baseline seems to be 1.5 however patient poor historian - Will need ambulatory pulse ox prior to discharge - Daily weights - Strict I's and O's - Lower extremity Carrillo bandages - Fluid and sodium restricted diet Elevated troponin - Suspect related to acute heart failure - Patient is chest pain-free - Echocardiogram is pending if any signs of wall motion abnormality we will consult cardiology - Hold off aspirin for now until we have further data due to history of gastric ulcers and significant GI bleed - Continue home beta-greta History of gastric ulcer - Continue home Carafate - Continue home Protonix 40 mg p.o. twice daily - Appears the last EGD was on 03/01/2024 at which time he was found to have oozing duodenal ulcers and recommendation was p.o. Protonix 40 mg twice daily for life and Carafate for 3 months - It does appear at this point we can discontinue his Carafate based on recommendations - Possible repeat EGD in 3 months Chronic anemia -Hemoglobin is stabilized in the 10-11 range -Continue home oral iron - Follows with hematology CKD stage IV - Baseline serum creatinine appears to run between 2 and 2.5 - 2.30 on presentation - Monitor closely with IV diuretics - Avoid nephrotoxins Chronic thrombocytopenia -Etiology is unclear however I do suspect he may have some liver dysfunction related to MCBRIDE -Did have an abdominal ultrasound done 2021 that showed hepatomegaly and fatty infiltration -Platelet count stable - Continue ongoing outpatient GI follow-up Hypothyroidism - Continue home liothyronine Carotid artery stenosis -Last carotid duplex was in 02/2023 and showed severe bilateral carotid artery stenosis with patent and antegrade vertebrals bilaterally -Continue medical therapy -Recommend outpatient follow-up with vascular surgery TIA -Patient is off aspirin and Plavix due to GI bleed and ulcers Hypothyroidism -Continue home liothyronine Chronic hypoxic respiratory failure secondary to COPD -Is dependent on 1.5-2 L at baseline -Treatment as noted above -Ongoing outpatient follow-up with pulmonary medicine as scheduled Nonobstructive CAD/essential HTN/HPL -Patient has nonobstructive CAD and is not on any antiplatelet therapy due to GI bleeding -Continue home atorvastatin -Hold home oral diuretics and use IV Bumex -Continue home metoprolol DM-2 -Hold glimepiride -SSI -Cardiac/carb controlled diet -Accu-Cheks as ordered Obesity -BMI is 30.4 -Recommend weight loss -Complicates treatment, prognosis, outcomes DVT prophylaxis -Heparin 3 times daily CODE STATUS -DNR CCA with no intubation as reconfirmed on admission Charges/Coding Visit Charges Inpatient E&M: 34560 Init Hosp L3
[2024-08-20 23:54] LABS: Troponin T High Sens 2 HR 85 ng/L (<=22)
[2024-08-21] VITALS (14 sets, daily range): BP systolic 110–139; BP diastolic 41–56; PULSE 74–121; RESP 16–22; TEMP 36.4–36.8; O2SAT 94–99; BMI 30.4
--- OUTSIDE RECORDS SUMMARY | 2024-08-21 00:10 | XMS RPT_ITS | CCD ---
Author Organization [facility] CliniSyfl Care Team Providers Care Ultrasound Technol Name Role Phone TALYA NICHOLS DO Primary Care Physician [phone] Dr. Talya Nichols Primary Care Provider Dr. Randy Villanueva Emergency Provider Dr. Tracy Angel Admit Provider Dr. Tracy Angel Other Provider Dr. Andre Rodriguez Attending Provider 1([facility])[phone] Dr. Sarai Alcantara Attending Provider Korsedrick, Dr. Sarai Ortega Other Provider Dr. Talya Nichols Primary Care Provider Dr. Randy Villanueva Emergency Provider Dr. Tracy Angel Admit Provider Dr. Tracy Angel Other Provider Dr. Sarai Alcantara Attending Provider Dr. Julian Jang Attending Provider 1([phone] Tracy Angel Referring Provider Dr. Sarai Alcantara Other Provider Dr. Eric Lester Emergency Provider Dr. Andre Rodriguezit Provider Dr. Andre Rodriguez Attending Provider Dr. Andre Rodriguez Other Provider Dr. Anthony Sosa Other Provider 1([facility])[phone] Yuridia Blunt Attending Provider Dr. Yuridia Blunt Other Provider Dr. Anthony Sosa Attending Provider Dr. Gustavo Tariq Attending Provider Dr. John Anders Other Provider Dr. John Anders Attending Provider Dr. Dusty Yan Emergency Provider gerri, Dr. Hodge Admit Provider Emeli, Dr. Hodge [facility] Hodge Other Provider Dr. Talya Nichols Primary Care Provider Dr. Eric Lester Emergency Provider Dr. Andre Rodriguez Admit Provider Dr. Andre Rodriguez Attending Provider Dr. Andre Rodriguez Other Provider Dr. Anthony Sosa Other Provider Dr. Yuridia Blunt Attending Provider Dr. Yuridia Blunt Other Provider Dr. Anthony Sosa Attending Provider Dr. Gustavo Tariq Attending Provider Dr. John Anders Other Provider Dr. John Andesr Attending Provider Dr. Dusty Yan Emergency Provider Emeli, Dr. Hodge Admit Provider Emeli, Dr. Hodge Attending Provider Nugerri, Dr. Hodge Other Provider Dr. Talya Nichols Referring Provider [phone] Iraj FILL MANAGER, FILL MANAGERAileen Santiago Attending Provider Dr. Yumiko Edward Emergency Provider [phone] Jennifer Pardo Admit Provider Dr. Jennifer Pardo Other Provider Dr. Talya Nichols Primary Care Provider Dr. Talya Nichols Referring Provider [phone] [facility] FILL MANAGER, FILL MANAGER-Fidencio Santiago Attending Provider Dr. Talya Nichols Primary Care Provider Dr. Lonnie Moreno Emergency Provider Koram, Dr. Sarai Ortega Admit Provider Korsedrick, Dr. Sarai Ortega Other Provider Dr. Erika Godwin Other Provider Unavailable Friend, Dr. Daniel Attending Provider Kor, Dr. Sarai Ortega Attending Provider [phone] Erika Godwin Attending Provider Unavailable Dr. Erika Godwin Referring Provider Unavailable Dr. Talya Nichols Primary Care Provider Dr. Lonnie Moreno Emergency Provider Koram, Dr. Sarai Ortega Admit Provider Koram, Dr. Sarai Ortega Other Provider Dr. Erika Godwin Referring Provider Unavailable Taot, Dr. Gayle Other Provider Unavailable Friend, Dr. Daniel Attending Provider [phone] Kor, Dr. Sarai Ortega Attending Provider [phone] Erika Godwin Attending Provider Unavailable Dr. Eyal Franklin Attending Provider Dr. Julian Jang Attending Provider Dr. Jr Thomas Emergency Provider Dr. Erika Landa Admit Provider Unavailabl e Landa, Dr. Gayle Other Provider Unavailabl e Dr. Anthony Sosa Attending Provider Dr. Anthony Sosa Other Provider TALYA NICHOLS DO Primary Care Physician [phone] Dr. Erika Landa Referring Provider Unavail [facility] Dr. Talya Nichols Referring Provider [phone] Dr. Eric Lester Emergency Provider Dr. Romario Blancas Admit Provider [phone] Dr. Romario Blancas Other Provider [phone] Richard, Dr. Ibarra Other Provider Richard, Dr. Ibarra Attending Provider Dr. Talya Nichols Primary Care Provider Dr. Fredy Joy Attending Provider [phone] Richard, Dr. Ibarra Referring Provider Dr. Fredy Joy Other Provider Dr. Michelle Washburn Admit Provider Dr. Michelle Washburn Attending Provider Dr. Micehlle Washburn Other Provider Dr. Trell Kendrick Attending Provider Dr. Trell Kendrick Other Provider Dr. John Anders Other Provider Dr. John Anders Attending Provider Kiet Rounding Nurse, Dr. Talya Caldwell Primary Care Provider Dr. Eric Lester Emergency Provider Dr. Romario Blancas Admit Provider [phone] Dr. Romario Blancas Other Provider [phone] Dr. Fred Ramos Referring Provider Richard, Dr. Ibarra Other Provider Dr. Fredy Joy Attending Provider [phone] Richard, Dr. Ibarra Attending Provider Dr. Talya Nichols Referring Provider Benita, Dr. Daniel Other Provider Dr. Jr Thomas Emergency Provider Dr. Michelle Washburn Admit Provider Dr. Michelle Washburn Attending Provider Dr. Michelle Washburn Other Provider Dr. Trell Kendrick Attending Provider Dr. Trell Kendrick Other Provider Dr. John Anders Other Provider Dr. John Anders Attending Provider MAGDALENA DO, TALYA Primary Care Unavailable DEVONTE CRISTINA Attending Unavailable JAZMIN CARRILLO, DR NAMRATA Moody Consulting Christianavarey NICHOLS DO, TALYA Primary Care Unavailable CHERI BROWNE MD Attending Unavailable EDUARDO CARRILLO, AHMET Admitting Unavailable EMA CARRILLO, DR ROLAND West Consulting Mark CLARK MD, NIHTRE Consulting Unavailable MAGDALENA DO, TALYA Attending Unavailable MAGDALENA DO, TALYA Primary Care Unavailable ANCA TY MD Attending U navailable MAGDALENA DO, TALYA Primary Care Unavailable MAGDALENA DO, TALYA Attending Unavailable MAGDALENA DO, TALYA Primary Care Unavailable MAGDALENA DO, TALYA Attending Unavailable MAGDALENA DO, TALYA Primary Care Unavailable MAGDALENA DO, TALYA Attending Unavailable MAGDALENA DO, TALYA Primary Care Unavailable MAGDALENA DO, TALYA Primary Care Unavailable MAGDALENA DO, TALYA Attending Unavailable MAGDALENA DO, TALYA Primary Care Unavailable KHURRAM ERICKSON MD Attending Unavailable MAGDALENA DO, TALYA Primary Care Unavailable ATUL FERGUSON, DAMARIS Attending Unavai lable MAGDALENA DO, TALYA Attending Unavailable MAGDALENA DO, TALYA Primary Care Unavailable MAGDALENA DO, TALYA Attending Unavailable MAGDALENA DO, TALYA Primary Care Unavailable MAGDALENA DO, TALYA Attending Unavailable MAGDALENA DO, TALYA Primary Care Unavailable MAGDALENA DO, TALYA Primary Care Unavailable KHURRAM ERICKSON MD Attending Unavailable MAGDALENA DO, TALYA Attending Unavailable MAGDALENA DO, TALYA Primary Care Unavailable MAGDALENA DO, TALYA Attending Unavailable MAGDALENA DO, TALYA Primary Care Unavailable JUAN MIGUEL WORKPLACE TRAINER AND ASSESSOR - ACTIVE DIRECTORY ENGINEER, MELONIE Galvan Attending U roland MAGDALENA DO, TALYA Primary Care Unavailable ANNY DA SILVA MD Attending Unavailable MAGDALENA DO, TALYA Primary Care Unavailable MAGDALENA DO, TALYA Primary Care Unavailable GINNY CARRILLO, KIRSTY Allan Attending Unavailable ADOLFO CARRILLO FACP, RONAL Louis Consulting Unavail able AHMET CLARK MD Consulting Unavailable MAGDALENA DO, TALYA Primary Care Unavailable ATUL WORKPLACE TRAINER AND ASSESSOR-ACTIVE DIRECTORY ENGINEER, DAMARIS Attending Unavai aydeele MAGDALENA DO, TALYA Primary Care Unavailable MAGDALENA DO, TALYA Attending Unavailable MAGDALENA DO, TALYA Attending Unavailable MAGDALENA DO, TALYA Primary Care Unavailable MAGDALENA DO, TALYA Attending Unavailable MAGDALENA DO, TALYA Primary Care Unavailable MAGDALENA DO, TALYA Primary Care Unavailable MAGDALENA DO, TALYA Attending Unavailable MAGDALENA DO, TALYA Primary Care Unavailable DRE CARRILLO, KHURRAM Attending Unavailable MAGDALENA DO, TALYA Primary Care Unavailable KAPPER WORKPLACE TRAINER AND ASSESSOR-ACTIVE DIRECTORY ENGINEER, DELIA M Admitting Unavaila ble LI WORKPLACE TRAINER AND ASSESSOR-ACTIVE DIRECTORY ENGINEER, DELIA M Attending Unavaila anjelica MATA MD FACP, RONAL Louis Consulting Unavail able KOLBY SIMS, DR CHOWDHURY Referring Unavailable MAGDALENA DO, TALYA Attending Unavailable MAGDALENA DO, TALYA Primary Care Unavailable DR YURIDIA HERNANDEZ MD Primary Care UnavailANCA Novoa MD Attending U Dr. Yuridia Dhaliwal MD Primary Care Provider Sheryl Cruz Attending Provider Unavailable Dr. Gerry Womack DO Emergency Provider Edvin CARRILLO, Dr. Rodriguez Admit Provider Edvin CARRILLO, Dr. Rodriguez Other Provider [phone] Quinton CARRILLO, Dr. Sarai Ortega Attending Provider Quinton CARRILLO, Dr. Sarai Ortega Other Provider [phone] Quinton CARRILLO, Dr. Sarai Ortega Referring Provider Benita SIMS, Dr. Daniel Attending Provider Mary CARRILLO, Dr. Hendrickson Attending Provider Yuridia Lal Referring Provider Unavailable Mary CARRILLO, Dr. Hendrickson Referring Provider Gerald CARRILLO, Dr. Powell Attending Provider [phone] Gerald CARRILLO, Dr. Powell Referring Provider [phone] Tayler CARRILLO, Dr. Reyes Emergency Provider Stanley CARRILLO, Dr. Tracy Herrera Admit Provider [phone] Stanley CARRILLO, Dr. Tracy Herrera Attending Provider Stanley CARRILLO, Dr. Tracy Herrera Other Provider [phone] Mary CARRILLO, Dr. Hendrickson Primary Care Provider [phone] Mary CARRILLO, Dr. Hendrickson Referring Provider [phone] Gerald CARRILLO, Dr. Powell Attending Provider [phone] Quinton CARRILLO, Dr. Sarai Ortega Attending Provider Quinton CARRILLO, Dr. Sarai Ortega Other Provider [phone] Mary CARRILLO, Dr. Hendrickson Attending Provider Wu SIMS, Dr. Roy Attending Provider Dr. Manuela Washburn DO Referring Provider Liliya Karimi Attending Provider Yuridia Hernandez Primary Care Unavailable Randy Villanueva Attending Unavailable Stephany, Jayaprakas Consulting Unavailable Jennifer Pardo Admitting Unavailable Yuridia Hernandez Primary Care Unavailable Anthony Sosa Attending Unavailable Edvin Jennifer Consulting Unavailable Belal, Farouk Consulting Unavailable John Anders F Consulting Unavailable Michelle Washburn Attending Unavailable Tracy Angel Consulting Unavailable Tracy Angel Admitting Unavailable Yuridia Hernandez Primary Care Unavailable Erika Landa Attending Unavailable Erika Landa Admitting Unavailable Erika Landa Consulting Unavailable Yuridia Hernandez Primary Care Unavailable Richard, Fred Consulting Unavailable Hernandez, Yuridia Primary Care Unavailable Anthony Sosa Attending Unavailable Richard, Fred Consulting Unavailable Richard, Fred Admitting Unavailable Andre Duarte Attending Unavailable PrahAndre Referring Unavailable Hernandez, Yuridia Primary Care Unavailable Hernandez, Yuridia Primary Care Unavailable Hernandez, Yuridia Attending Unavailable Koram, Sarai Shannon Attending Unavailable WhiteTracy L Admitting Unavailable WhiteTracy L Consulting Unavailable Hernandez, Yuridia Primary Care Unavailable Hernandez OLS, Yuridia Referring Unavailable Hernandez, Yuridia Attending Unavailable Hernandez, Yuridia Primary Care Unavailable Hernandez, Yuridia Attending Unavailable Hernandez, Yuridia Primary Care Unavailable Wu, Manuela Attending Unavailable Wu, Manuela Referring Unavailable Hernandez, Yuridia Primary Care Unavailable Hernandez, Yuridia Primary Care Unavailable Hernandez, Yuridia Referring Unavailable Hernandez, Yuridia Attending Unavailable Hernandez, Yuridia Referring Unavailable Hernandez, Yuridia Primary Care Unavailable Hernandez, Yuridia Attending Unavailable Wu, Manuela Attending Unavailable Wu, Manuela Referring Unavailable Hernandez, Yuridia Primary Care Unavailable Wu, Manuela Attending Unavailable Hernandez, Yuridia Primary Care Unavailable Liliya Troncoso Referring Unavailable Hernandez, Yuridia Primary Care Unavailable Liliya Troncoso Attending Unavailable Wu, Manuela Consulting Unavailable Wu, Manuela Attending Unavailable Hernandez, Yuridia Primary Care Unavailable Hernandez, Yuridia Primary Care Unavailable Archanaeletssamson, Anthony Referring Unavailable Richard Fred Consulting Unavailable Benita, Fredy Attending Unavailable Richard Fred Admitting Unavailable TereletsAnthony davies Consulting Unavailable Ian, Anthony Attending Unavailable Richard, Fred Attending Unavailable John Anders Attending Unavailable John Anders Consulting Unavailable Benita, Fredy Attending Unavailable Hernandez, Yuridia Referring Unavailable Hernandez, Yuridia Primary Care Unavailable Andre Duarte Attending Unavailable Hernandez, Yuridia Referring Unavailable Hernandez, Yuridia Primary Care Unavailable Andre Duarte Attending Unavailable Hernandez, Yuridia Referring Unavailable Hernandez, Yuridia Primary Care Unavailable Liliya Troncoso Attending Unavailable Hernandez, Yuridia Referring Unavailable Hernandez, Yuridia Primary Care Unavailable Quinton, Sarai Ortega Referring Unavailable FriendFredy Attending Unavailable Hernandez, Yuridia Primary Care Unavailable Hernandez, Yuridia Primary Care Unavailable Sheryl Cruz Attending Unavailable Hernandez, Yuridia Primary Care Unavailable Trell Kendrick Attending Unavailable FriendFredy Attending Unavailable Hernandez, Yuridia Primary Care Unavailable Archanaeletssamson, Anthony Referring Unavailable Talya Nichols Referring Unavailable Friend, Fredy Attending Unavailable Talya Nichols Primary Care Unavailable Barber Martell Attending Unavailable Hernandez, Yuridia Primary Care Unavailable Friend, Fredy Attending Unavailable Hernandez, Yuridia Primary Care Unavailable Anthony Sosa Referring Unavailable Koram, Sarai Shannon Attending Unavailable Koram, Sraai Shannon Admitting Unavailable Koram, Sarai Shannon Consulting Unavailable Hernandez, Yuridia Primary Care Unavailable Jennifer Pardo Attending Unavailable Pardo, Jennifer Consulting Unavailable Stephany, Jayaprakas Consulting Unavailable Stephany, Jayaprakas Consulting Unavailable Fredy Joy Attending Unavailable Edvin, Jennifer Admitting Unavailable Hernandez, Yuridia Primary Care Unavailable Ian, Anthony Referring Unavailable Pardo, Jennifer Consulting Unavailable BelBarber taylor Consulting Unavailable John Anders Consulting Unavailable Ian, Anthony Consulting Unavailable Anthony Sosa Attending Unavailable Michelle Washburn Attending Unavailable Hernandez, Yuridia Primary Care Unavailable White, Tracy L Consulting Unavailable White, Tracy L Admitting Unavailable Michelle Washburn Consulting Unavailable Koram, Sarai Shannon Attending Unavailable Jennifer Pardo Admitting Unavailable Edvin, Jennifer Consulting Unavailable Hernandez, Yuridia Primary Care Unavailable Koram, Sarai Shannon Consulting Unavailable Sheryl Cruz Attending Unavailable Hernandez, Yuridia Primary Care Unavailable Hernandez, Yuridia Primary Care Unavailable Gustavo Tariq Attending Unavailable Talya Nichols Referring Unavailable Liliya Troncoso Attending Unavailable Hernandez, Yuridia Primary Care Unavailable Andre Duarte Attending Unavailable Mary, Yuridia Referring Unavailable Hernandez, Yuridia Primary Care Unavailable Barber Martell Attending Unavailable Hernandez, Yuridia Primary Care Unavailable Tracy Angel Attending Unavailable John Anders Attending Unavailable Erika Landa Admitting Unavailable Hernandez, Yuridia Primary Care Unavailable Erika Landa Consulting Unavailable Fred Ramos Consulting Unavailable Koram, Sarai Shannon Admitting Unavailable Koram, Sarai Shannon Consulting Unavailable Jennifer Pardo Attending Unavailable Hernandez, Yuridia Primary Care Unavailable Stephany, Jayaprakas Consulting Unavailable Hernandez, Yuridia Primary Care Unavailable HernandezYuridia hernandez Referring Unavailable Yuridia Hernandez Attending Unavailable Eduardoam, Sarai Shannon Attending Unavailable Edvin, Jennifer Consulting Unavailable Edvin, Jennifer Admitting Unavailable Hernandez, Yuridia Primary Care Unavailable Hernandez, Yuridia Primary Care Unavailable Hernandez, Yuridia Referring Unavailable Hernandez, Yuridia Attending Unavailable White, Tarcy L Admitting Unavailable White, Tracy L Consulting Unavailable White, Tracy L Attending Unavailable Hernandez, Yuridia Primary Care Unavailable Hernandez, Yuridia Primary Care Unavailable Hernandez, Yuridia Attending Unavailable Sarai Alcantara Attending Unavailable Sarai Alcantara Consulting Unavailable Jennifer Pardo Attending Unavailable Jennifer Padro Admitting Unavailable Yuridia Hernandez Primary Care Unavailable Jennifer Pardo Consulting Unavailable John Anders Attending Unavailable Fred Ramos Attending Unavailable Sarai Alcantara Shannon Referring Unavailable Friend, Fredy Attending Unavailable Jennifer Pardo Attending Unavailable Yuridia Hernandez Primary Care Unavailable Dimitry Lott Attending Unavailable Allergies Allergy Classification Reported Allergen(s) Allergy Type Date of Onset Reaction(s) Facility aliskiren / valsartan (1 source) aliskiren / valsartan; Translations: [aliskiren-valsa rtan] Drug Allergy Numbness of hand (finding), Numbness of finger (finding) [facility] Comment on above: to hand & fingers Opioid Agonists (1 source) Codeine; Translations: [codeine] Drug Allergy Stomach problem (finding) [facility] (20 sources) aliskiren / valsartan; Translations: [aliskiren-valsa rtan] Drug Allergy Numbness of hand (finding), Numbness of finger (finding) [facility] Comment on above: to hand & fingers (20 sources) Codeine; Translations: [codeine] Drug Allergy 2 Stomach problem (finding) [facility] (4 sources) aliskiren Drug Allergy 4 Other [facility] Comment on above: NUMBESS IN FINGERS (4 sources) valsartan Drug Allergy 4 [facility] Comment on above: NUMBESS IN FINGERS (1 source) aliskiren Drug Allergy 5 [facility] (1 source) Codeine Drug Allergy 5 [facility] (1 source) valsartan Drug Allergy 5 [facility] Medications Current Medications Medication Drug Class(es) Dates Sig (Normalized) Sig (Original) albuterol 0.833 mg/ml / ipratropium bromide 0.167 mg/ml inhalation solution (20 sources) Anticholinergic, beta2-Adrenergic Agonist Start: 05-02-2021 take 1 mL by inhalation four times daily as needed Ipratropium-Albuter ol 0.5 mg-3 mg(2.5 mg base)/3 mL solution for nebulization Active 3 mL INHALATION 4 TIMES DAILY as needed for sob May 02, 2021 1:00am Start: 05-02-2021 End: 07-11-2023 albuterol-ipratropium 2.5 mg -0.5 mg/3 mL inhalation solution Dose = 3 mL, Nebulized, QID, INHALE 3ML VIA NEBULIZER 4 TIMES A DAY NEEDED FOR SHORTNESS OF BREATH OR WHEEZING, # 360 mL, 0 Refill(s), Pharmacy: [facility], 165.1, cm, 06/08/23 22:18:00 EDT, Height, kg, 06/08/23 22:18:00 EDT, Dosing Weight Start Date: 06/11/23 Stop Date: 07/11/23 Status: Ordered Start: 01-15-2020 albuterol-ipra tropium 2.5 mg-0.5 mg/3 mL inhalation solution Dose = 3 mL, Nebulized, QID, 1 EA = 1 box. use 1 ampule via nebulizer every 6 hours as needed for shortness of breath, # 1 EA, 2 Refill(s), Pharmacy: [id number], COPD (chronic obstructive pulmonary disease), 164, cm, 01/15/20 9:25:00 EST, H... Start Date: 01/15/20 Status: Ordered allopurinol 100 mg oral tablet (4 sources) Xanthine Oxidase Inhibitor Start: 04-11-2022 take 100 mg by mouth once daily Allopurinol Active 100 MG PO DAILY April 11, 2022 12:00am Start: 01-03-2022 allopurinol 10 0 mg oral tablet Dose : 100 mg = 1 tab(s), Oral, qDay, # 90 tab(s), 0 Refill(s) Start Date: 01/03/22 Status: Ordered Start: 12-14-2021 take 10 mg by mouth once daily Allopurinol Active 10 MG PO DAILY December 14, 2021 12:00am Start: 09-29-2022 take 100 mg by mouth once denise y Allopurinol Active 100 MG PO DAILY December 08, 2021 12:00am amoxicillin 500 mg / clavulanate 125 mg oral tablet (6 sources) Penicillin-class Antibacterial Start: 11-10-2022 amoxicillin-clavulanate 500 mg-125 mg oral tablet 0 Refill(s), 87.6 Start Date: 11/10/22 Status: Ordered Ascorbic Acid / Beta Carotene / cuprous oxide / Vitamin E / Zinc Oxide (1 source) Vitamin C Start: 01-15-2020 take 1 tablet by mouth twice daily PreserVision Dose = 1 tab(s), Oral, BID, # 60 tab(s), 0 Refill(s) Start Date: 01/15/20 Status: Ordered atorvastatin 80 mg oral tablet (20 sources) HMG-CoA Reductase Inhibitor Start: 05-02-2021 take 1 tablet by mouth once daily Atorvastatin 80 mg tablet Active 80 mg PO DAILY May 02, 2021 1:00am Start: 12-22-2020 atorvastatin 8 0 mg oral tablet Dose : 80 mg = 1 tab(s), Oral, Daily, # 90 tab(s), 3 Refill(s), Pharmacy: [id number], Hypercholesterolemia, 162.5, cm, 12/22/20 8:17:00 EDT, Height, kg, 12/22/20 8:17:00 EDT, Dosing Weight Start Date: 12/22/20 Status: Ordered baclofen 10 mg oral tablet (2 sources) gamma-Aminobutyric Acid-ergic Agonist Start: 03-12-2022 take 10 mg by mouth three times daily as needed Baclofen Active 10 MG PO 3 TIMES DAILY NEEDED March 12, 2022 12:00am benzonatate 100 mg oral capsule (2 sources) Non-narcotic Antitussive Start: 06-06-2022 End: 06-13-2022 Tessalon Perles 100 mg oral capsule Dose : 100 mg = 1 cap(s), Oral, TID, PRN as needed for cough, X 7 day(s), # 21 cap(s), 0 Refill(s), 06/13/22 17:03:00 EDT, Pharmacy: [facility] #[id number], 165.1, cm, 06/02/22 13:23:00 EDT, Height Start Date: 06/06/22 Stop Date: 06/13/22 Status: Ordered carvedilol 3.125 mg oral tablet (20 sources) alpha-Adrenergic Greta, beta-Adrenergic Greta Start: 05-11-2023 carvedilol 3.125 mg oral tablet Dose : 3.125 mg = 1 tab(s), Oral, BID, # 180 tab(s), 1 Refill(s), Pharmacy: [facility], 165, cm, 05/11/23 13:05:00 EST, Height, kg, 05/11/23 12:58:00 EST, Dosing Weight Start Date: 05/11/23 Status: Ordered Start: 05-07-2023 End: 05-07-2023 carvedilol 12.5 mg oral tabl et Start: 05/07/23 5:00:00 PM EST, Dose = 6.25 mg, = 0.5 tab(s), Oral, 0, 05/07/23 15:03:00 EST Start Date: 05/07/23 Stop Date: 05/07/23 Status: Completed Start: 04-26-2023 End: 06-27-2023 take 1 tablet by mouth twice daily at mealtime Carvedilol 6.25 mg Tablet Discontinued 6.25 mg PO TWICE DAILY WITH MEALS April 26, 2023 1:00am June 27, 2023 1:42pm Start: 03-22-2022 carvedilol 6.2 5 mg oral tablet Dose : 6.25 mg = 1 tab(s), Oral, BID, # 180 tab(s), 1 Refill(s), Pharmacy: [id number], NSTEMI (non-ST elevated myocardial infarction) HTN (hypertension), 160, cm, 03/22/22 13:45:00 EST, Height Start Date: 03/22/22 Status: Ordered Start: 03-16-2022 End: 11-16-2022 take 1 tablet by mouth twice daily Carvedilol 6.25 mg tablet Discontinued 6.25 mg PO TWICE A DAY April 12, 2022 1:02am November 16, 2022 7:08pm cholecalciferol 0.025 mg oral capsule (20 sources) Vitamin D Start: 05-02-2021 take 1 capsule by mouth once daily Cholecalciferol (Vitamin D3) 25 mcg (1,000 unit) Capsule Active 25 ug PO DAILY May 02, 2021 1:00am empagliflozin 10 mg oral tablet (20 sources) Sodium-Glucose Cotransporter 2 Inhibitor Start: 04-26-2023 take 1 tablet by mouth once daily Empagliflozin (Jardiance) 10 mg Tablet Active 10 mg PO DAILY April 26, 2023 1:00am Start: 04-13-2023 Jardiance 25 m g oral tablet Dose : 25 mg = 1 tab(s), Oral, qAM, 0 Refill(s) Start Date: 04/13/23 Status: Ordered Start: 11-16-2022 take 1 tablet by michelle th once daily Empagliflozin (Jardiance) 25 mg tablet Active 10 MG PO DAILY November 15, 2022 11:00pm Start: 11-02-2022 Jardiance 10 m g oral tablet Dose : 10 mg = 1 tab(s), Oral, qAM, # 30 tab(s), 5 Refill(s), Pharmacy: [facility] #[id number], Heart failure with preserved ejection fraction CKD stage 3 secondary to diabetes, 161.5, cm, 11/02/22 13:07:00 EDT, Height, kg, 11/02/22 13:01:00 EDT, Dosing Weight Start Date: 11/02/22 Status: Ordered ferrous sulfate 325 mg oral tablet (5 sources) Start: 11-14-2023 take 1 tablet by mouth twice daily Ferrous Sulfate (Ferosul) 325 mg (65 mg iron) tablet Active 325 mg PO TWICE A DAY November 14, 2023 12:00am Start: 07-12-2023 ferrous sulfat e 325 mg (65 mg elemental iron) oral tablet Dose : 325 mg = 1 tab(s), Oral, BID, Take with food., # 180 tab(s), 3 Refill(s), Pharmacy: [facility], Thrombocytopenia Anemia in CKD (chronic kidney disease), 165, cm, 07/12/23 8:31:00 EDT, Height, kg, 07/12/23 8:18:00 EDT, Dosing Weight Start Date: 07/12/23 Status: Ordered Fish Oils (20 sources) Start: 01-03-2022 omega-3 fish o il 1000 mg oral capsule Dose : 2,000 mg = 2 cap(s), Oral, BID, # 60 cap(s), 0 Refill(s) Start Date: 01/03/22 Status: Ordered Start: 11-28-2018 omega-3 fish o il 1000 mg oral capsule Dose : 2,000 mg = 2 cap(s), Oral, BID, # 90 cap(s), 0 Refill(s) Start Date: 11/28/18 Status: Ordered Start: 11-28-2018 omega-3 fish o il 1000 mg oral capsule Dose : 1,000 mg = 1 cap(s), Oral, qDay, # 90 cap(s), 0 Refill(s) Start Date: 11/28/18 Status: Ordered fluticasone / salmeterol (2 sources) Corticosteroid, beta2-Adrenergic Agonist Start: 11-10-2022 End: 05-09-2023 take 1 dose by inhalation twice daily fluticasone-salmeterol 250 mcg-50 mcg inhalation powder Dose = 1 puff(s), Inhalation, BID, d/c Spiriva, # 1 EA, 5 Refill(s), [facility]: [id number], COPD with acute exacerbation, 161.5, cm, 11/10/22 11:28:00 EDT, Height, kg, 11/10/22 11:28:00 EDT, Dosing Weight Start Date: 11/10/22 Stop Date: 05/09/23 Status: Ordered furosemide 40 mg oral tablet (20 sources) Loop Diuretic Start: 02-02-2024 take 1 tablet by mouth once daily Furosemide 40 mg tablet Active 40 mg PO DAILY February 02, 2024 1:00am On Hold: Ordered Start: 06-11-2023 furosemide 40 mg oral tablet Dose : 40 mg = 1 tab(s), Oral, Daily, # 30 tab(s), 0 Refill(s), Pharmacy: [facility], 165.1, cm, 06/08/23 22:18:00 EDT, Height, kg, 06/08/23 22:18:00 EDT, Dosing Weight Start Date: 06/11/23 Status: Ordered Start: 05-26-2022 End: 04-24-2023 take 1 tablet by mouth once daily Furosemide (Lasix) 40 mg tablet Discontinued 40 mg PO DAILY July 06, 2022 10:10am April 25, 2023 12:16am Start: 05-24-2022 End: 05-26-2022 Furosemide (Lasix) 40 mg tab let Discontinued 20 mg PO DAILY May 24, 2022 11:30am May 26, 2022 10:18am Start: 05-12-2022 furosemide 20 mg oral tablet Dose : 20 mg = 1 tab(s), Oral, qDay, changing dosing strength and frequency, # 90 tab(s), 1 Refill(s), [facility]: [facility][id number], Heart failure with preserved ejection fraction Dyspnea on minimal exertion, 160, cm, 04/25/22 13:47:00 EST, Height Start Date: 05/12/22 Status: Ordered Start: 05-02-2022 End: 05-24-2022 take 1 tablet by mouth every other day Furosemide (Lasix) 40 mg tablet Discontinued 40 mg PO every other day May 02, 2022 11:35am May 24, 2022 11:19am Start: 04-13-2022 End: 05-02-2022 take 1 tablet by mouth once daily Furosemide (Lasix) 40 mg tablet Discontinued 40 mg PO DAILY April 13, 2022 1:00am May 02, 2022 11:37am 12 hr guaiFENesin 600 mg extended release oral tablet (1 source) Start: 11-02-2022 End: 11-09-2022 Mucinex 600 mg oral tablet, extended release Dose : 600 mg = 1 tab(s), Oral, q12h, X 7 day(s), # 14 tab(s), 0 Refill(s), 11/09/22 2:00:00 PM EDT, Pharmacy: [facility] #[id number], Chest congestion COPD with acute exacerbation, 161.5, cm, 11/02/22 13:07:00 EDT, Height, kg, 11/02/22 13:01:00 EDT, Dosing Weight Start Date: 11/02/22 Stop Date: 11/09/22 Status: Ordered hydroCHLOROthiazide 25 mg oral tablet (2 sources) Thiazide Diuretic Start: 04-13-2023 hydroCHLOROthiazide 25 mg oral tablet Dose : 25 mg = 1 tab(s), Oral, qDay, # 90 tab(s), 1 Refill(s), Pharmacy: [facility], HTN (hypertension) (HFpEF) heart failure with preserved ejection fraction, 161.3, cm, 04/13/23 13:12:00 EST, Height, kg, 04/13/23 13:12:00 EST, Dosing Weight Start Date: 04/13/23 Status: Ordered Start: 10-18-2022 hydroCHLOROthi azide 25 mg oral tablet Dose : 25 mg = 1 tab(s), Oral, qDay, Continue taking Lasix as prescribed, # 30 tab(s), 0 Refill(s), Pharmacy: [facility] #[id number], COPD (chronic obstructive pulmonary disease) Heart failure with preserved ejection fraction, 161.5, cm, 07/25/22 13:55:00 EDT, Height, kg, 07/25/22 13:55:00 EDT, Dosing Weight Start Date: 10/18/22 Status: Ordered ipratropium bromide 0.2 mg/ml inhalation solution (5 sources) Anticholinergic Start: 05-11-2023 End: 11-07-2023 take 1 dose by inhalation four times daily ipratropium 500 mcg/2.5 mL inhalation solution Dose : 500 mcg = 2.5 mL, Inhalation, QID, # 120 EA, 5 Refill(s), Pharmacy: [facility], COPD with acute exacerbation Chronic hypoxemic respiratory failure, 165, cm, 05/11/23 13:05:00 EST, Height, kg, 05/11/23 12:58:00 EST, Dosing Weight Start Date: 05/11/23 Stop Date: 11/07/23 Status: Ordered ammonium lactate 120 mg/ml topical cream (3 sources) Start: 03-02-2023 ammonium lactate 12% topical cream Apply 1 erika, Topical, BID, apply to both feet and rub in well, # 140 gram(s), 1 Refill(s), Pharmacy: [facility], Cream, 160, cm, 03/21/23 12:46:00 EST, Height, 86.1, kg, 03/21/23 12:34:00 EST, Dosing Weight Start Date: 03/22/23 Status: Ordered liothyronine sodium 0.025 mg oral tablet (20 sources) l-Triiodothyronine Start: 10-27-2022 End: 11-07-2023 liothyronine 25 mcg oral tablet Dose : 25 mcg = 1 tab(s), Oral, qDay, # 90 tab(s), 1 Refill(s), Pharmacy: [facility], Hypothyroidism, 165, cm, 05/11/23 13:05:00 EST, Height, kg, 05/11/23 12:58:00 EST, Dosing Weight Start Date: 05/11/23 Stop Date: 11/07/23 Status: Ordered Start: 09-27-2021 End: 10-16-2022 liothyronine 25 mcg oral tab let Dose : 25 mcg = 1 tab(s), Oral, qDay, # 90 tab(s), 1 Refill(s), [facility]: [facility] #[id number], Hypothyroidism, 160, cm, 04/19/22 13:15:00 EST, Height, kg, 04/19/22 13:09:00 EST, Dosing Weight Start Date: 04/19/22 Stop Date: 10/16/22 Status: Ordered Start: 05-02-2021 take 1 tablet by [facility] once daily Liothyronine 25 mcg tablet Active 25 ug PO DAILY May 02, 2021 1:00am Start: 12-22-2020 End: 06-20-2021 liothyronine 25 mcg oral tab let Dose : 25 mcg = 1 tab(s), Oral, qDay, # 90 tab(s), 1 Refill(s), Pharmacy: [id number], Hypothyroidism, 162.5, cm, 12/22/20 8:17:00 EDT, Height, kg, 12/22/20 8:17:00 EDT, Dosing Weight Start Date: 12/22/20 Stop Date: 06/20/21 Status: Ordered 24 hr metoprolol succinate 25 mg extended release oral tablet (9 sources) beta-Adrenergic Greta Start: 06-14-2023 End: 09-12-2023 take 1 tablet by mouth once daily Metoprolol Succinate 25 mg tablet extended release 24 hr Active 25 mg PO DAILY June 27, 2023 12:00am Start: 06-11-2023 Toprol-XL 25 m g oral tablet, extended release Dose : 25 mg = 1 tab(s), Oral, qDayM, # 30 tab(s), 0 Refill(s), Pharmacy: [facility], 165.1, cm, 06/08/23 22:18:00 EDT, Height, kg, 06/08/23 22:18:00 EDT, Dosing Weight Start Date: 06/11/23 Status: Ordered Start: 06-11-2023 End: 06-11-2023 Toprol-XL Start: 06/11/23 8:00 :00 AM EDT, Dose = 25 mg, = 1 tab(s), Oral, give with food/meal, 06/09/23 13:02:00 EDT Start Date: 06/11/23 Stop Date: 06/11/23 Status: Completed Start: 06-10-2023 End: 06-10-2023 Toprol-XL Start: 06/10/23 8:0 0:00 AM EDT, Dose = 25 mg, = 1 tab(s), Oral, give with food/meal, 06/09/23 13:02:00 EDT Start Date: 06/10/23 Stop Date: 06/10/23 Status: Completed Touchet-3 Fatty Acids-Vitamin E (20 sources) Start: 05-02-2021 take 2 capsules by mouth twice daily Touchet-3 Fatty Acids-Vitamin E Active 2 CAP PO TWICE A DAY May 02, 2021 12:00am Start: 05-02-2021 take 2 capsules by m outh twice daily Touchet-3 Fatty Acids-Vitamin E Active 2 CAP PO TWICE A DAY May 02, 2021 1:00am oxyCODONE hydrochloride 5 mg oral tablet (2 sources) Opioid Agonist Start: 07-14-2024 take 2.5 mg by mouth twice daily as needed Oxycodone 5 mg tablet Active 2.5 mg PO TWICE A DAY as needed for shortness of breath July 14, 2024 12:00am Start: 12-16-2021 take 5 mg by mouth e very four hours as needed Oxycodone Active 5 MG PO EVERY 4 HOURS NEEDED 27 05December 16, 2021 PreserVision AREDS (3 sources) Start: 07-12-2023 PreserVision A REDS See Instructions, 1 capsule twice a day, 0 Refill(s) Start Date: 07/12/23 Status: Ordered Start: 11-24-2021 PreserVision A REDS 0 Refill(s) Start Date: 11/24/21 Status: Ordered PreserVision AREDS 2 (4 sources) Start: 05-07-2023 take 1 tablet by mouth twice daily PreserVision AREDS 2 Dose = 1 tab(s), Oral, BID, 0 Refill(s) Start Date: 05/07/23 Status: Ordered PreserVision AREDS 2 oral capsule (16 sources) Start: 01-03-2022 take 1 capsule by mouth once daily PreserVision AREDS 2 oral capsule Dose = 1 cap(s), Oral, Daily, 0 Refill(s) Start Date: 01/03/22 Status: Ordered tiotropium 0.018 mg inhalation powder (20 sources) Anticholinergic Start: 12-19-2022 End: 12-08-2023 Spiriva HandiHaler 18 mcg inhalation capsule Dose : 18 mcg = 1 cap(s), Inhalation, qDay, Restarting medication. Please fill as Spiriva HandiHaler KESHA and discontinue Advair and other Spiriva prescription. Use two inhalations of one capsule for each dose. Please Dispense as Written, Generic is making patient cough., # 30 cap(s), 5 Refill(s), KESHA, Pharmacy: [facility], COPD without exacerbation COPD with acute exacerbation, 165.1, cm, 06/08/23 22:18:00 EDT, Height, kg, 06/08/23 22:18:00 EDT, Dosing Weight Start Date: 06/11/23 Stop Date: 12/08/23 Status: Ordered Start: 11-23-2022 End: 12-23-2022 take 2 puff(s) by inhalation once daily Spiriva Respimat 60 ACT 2.5 mcg/inh inhalation aerosol 2 puff(s), Inhalation, qDay, # 1 EA, 0 Refill(s), Pharmacy: [facility] #[id number], COPD (chronic obstructive pulmonary disease) Oxygen dependent, 161.5, cm, 11/23/22 10:34:00 EDT, Height, kg, 11/23/22 10:34:00 EDT, Dosing Weight Start Date: 11/23/22 Stop Date: 12/23/22 Status: Ordered Start: 10-24-2022 End: 06-17-2023 Spiriva HandiHaler 18 mcg inhalation capsule Dose : 18 mcg = 1 cap(s), Inhalation, qDay, Restarting medication. Please fill as Spiriva HandiHaler KESHA and discontinue Advair and other Spiriva prescription. Use two inhalations of one capsule for each dose. Please Dispense as Written, Generic is making patient cough., # 30 cap(s), 5 Refill(s), KESHA, Pharmacy: [facility] #[id number], COPD (chronic obstructive pulmonary disease) COPD without exacerbation, 161.2, cm, 12/14/22 13:07:00 EDT, Height, kg, 12/14/22 13:07:00 EDT, Dosing Weight Start Date: 12/19/22 Stop Date: 06/17/23 Status: Ordered Start: 04-19-2022 End: 10-16-2022 Spiriva HandiHaler 18 mcg inhalation capsule Dose : 18 mcg = 1 cap(s), Inhalation, qDay, use two inhalations of one capsule for each dose, # 30 cap(s), 5 Refill(s), Pharmacy: [facility] #[id number], COPD (chronic obstructive pulmonary disease) COPD without exacerbation, 160, cm, 04/19/22 13:15:00 EST... Start Date: 04/19/22 Stop Date: 10/16/22 Status: Ordered Start: 09-27-2021 End: 04-18-2022 Spiriva HandiHaler 18 mcg inhalation capsule Dose : 18 mcg = 1 cap(s), Inhalation, qDay, use two inhalations of one capsule for each dose, # 30 cap(s), 1 Refill(s), Pharmacy: [id number], COPD (chronic obstructive pulmonary disease) COPD without exacerbation, 161, cm, 01/17/22 13:27:... Start Date: 02/17/22 Stop Date: 04/18/22 Status: Ordered Start: 05-02-2021 take 1 capsule by in halation once daily Tiotropium [place] (Spiriva With Handihaler) 18 mcg capsule, w/inhalation device Active 18 MCG INHALATION DAILY May 02, 2021 1:00am Start: 03-30-2021 Spiriva HandiH aler 18 mcg inhalation capsule See Instructions, 1 cap(s) use two inhalations of one capsule for each dose, # 30 cap(s), 5 Refill(s), Pharmacy: [id number], COPD (chronic obstructive pulmonary disease), 161.3, cm, 03/30/21 13:16:00 EST, Height, kg, 03/30/21 13:16:00 EST,... Start Date: 03/30/21 Status: Ordered Tiotropium [place] (Spiriva With Handihaler) 18 mcg capsule, w/inhalation device (17 sources) Start: 05-02-2021 Tiotropium [place] (Spiriva With Handihaler) 18 mcg capsule, w/inhalation device Active 18 ug INHALATION DAILY May 02, 2021 1:00am Start: 05-02-2021 take 1 capsule by in halation once daily Tiotropium [place] (Spiriva With Handihaler) 18 mcg capsule, w/inhalation device Active 18 MCG INHALATION DAILY May 02, 2021 12:00am Start: 05-02-2021 take 1 capsule by in halation once daily Tiotropium [place] (Spiriva With Handihaler) 18 mcg capsule, w/inhalation device Active 18 MCG INHALATION DAILY May 02, 2021 1:00am torsemide 5 mg oral tablet (20 sources) Loop Diuretic Start: 07-15-2024 take 1 tablet by mouth once daily Torsemide 5 mg tablet Active 5 mg PO DAILY July 15, 2024 12:00am Start: 01-29-2024 End: 06-25-2024 take 1 tablet by mouth once daily Torsemide 5 mg tablet Discontinued 5 mg PO DAILY January 29, 2024 1:00am June 25, 2024 1:43pm Start: 12-26-2023 End: 01-29-2024 take 3 tablets by mouth once daily Torsemide 10 mg tablet Discontinued 30 mg PO DAILY December 26, 2023 12:00am January 29, 2024 10:48pm Start: 11-20-2023 End: 12-26-2023 take 4 tablets by mouth once daily Torsemide 10 mg tablet Discontinued 40 mg PO DAILY November 20, 2023 4:34pm December 26, 2023 4:06pm Start: 08-17-2023 take 2 tablets by mo ut once daily, then take 1 tablet by mouth once daily torsemide 10 mg oral tablet See Instructions, Take 2 tabs daily Sunday and 1 tab daily Sunday, # 135 tab(s), 1 Refill(s), Pharmacy: [facility], (HFpEF) heart failure with preserved ejection fraction, 165, cm, 08/17/23 10:19:00 EDT, Height, kg, 08/17/23 10:19:00 EDT, Dosing Weight Start Date: 08/17/23 Status: Ordered Start: 06-27-2023 End: 11-20-2023 take 1 tablet by mouth once daily Torsemide 10 mg tablet Discontinued 10 mg PO DAILY June 27, 2023 12:00am November 20, 2023 4:34pm Start: 2023 torsemide 10 m g oral tablet Dose : 10 mg = 1 tab(s), Oral, qDay, Increased dose, # 90 tab(s), 1 Refill(s), Pharmacy: [facility], Acute on chronic systolic CHF (congestive heart failure), 165, cm, 05/29/23 9:47:00 EDT, Height, kg, 05/29/23 9:47:00 EDT, Dosing Weight Start Date: 05/29/23 Status: Ordered Start: 05-11-2023 torsemide 5 mg oral tablet Dose : 5 mg = 1 tab(s), Oral, Daily, # 30 tab(s), 5 Refill(s), Pharmacy: [facility], Acute on chronic systolic CHF (congestive heart failure), 165, cm, 05/11/23 13:05:00 EST, Height, kg, 05/11/23 12:58:00 EST, Dosing Weight Start Date: 05/11/23 Status: Ordered Start: 05-08-2023 torsemide 5 mg oral tablet Dose : 5 mg = 1 tab(s), Oral, Daily, # 30 tab(s), 0 Refill(s), [facility]: [facility] #[id number], 165.1, cm, 05/07/23 14:29:00 EST, Height, kg, 05/07/23 14:29:00 EST, Dosing Weight Start Date: 05/08/23 Status: Ordered Start: 04-11-2022 End: 04-13-2022 take 2.5 mg by mouth once daily Torsemide 10 mg tablet Discontinued 2.5 mg PO DAILY April 11, 2022 10:29pm April 13, 2022 10:55am Start: 04-11-2022 End: 04-13-2022 take 2.5 mg by mouth once daily Torsemide Discontinued 2.5 MG PO DAILY April 11, 2022 10:29pm April 13, 2022 10:55am Start: 04-11-2022 take 5 mg by mouth once daily Torsemide Active 5 MG PO DAILY April 11, 2022 9:29pm Start: 03-16-2022 End: 04-11-2022 take 1 tablet by mouth once daily Torsemide 10 mg tablet Discontinued 10 mg PO DAILY March 16, 2022 10:51am April 11, 2022 10:29pm Start: 01-17-2022 torsemide 5 mg oral tablet Dose : 5 mg = 1 tab(s), Oral, qDay, # 90 tab(s), 1 Refill(s), Pharmacy: [id number], HTN (hypertension), 161, cm, 01/17/22 13:27:00 EST, Height, kg, 01/17/22 13:27:00 EST, Dosing Weight Start Date: 01/17/22 Status: Ordered Start: 12-08-2021 End: 03-16-2022 take 5 mg by mouth once daily Torsemide 10 mg tablet Discontinued 5 mg PO DAILY December 08, 2021 8:41am March 16, 2022 10:51am Start: 12-08-2021 End: 03-16-2022 take 5 mg by mouth once daily Torsemide Discontinued 5 MG PO DAILY December 08, 2021 8:41am March 16, 2022 10:51am Start: 09-27-2021 torsemide 5 mg oral tablet Dose : 2.5 mg = 0.5 tab(s), Oral, Daily, # 30 tab(s), 5 Refill(s), Pharmacy: [facility], HTN (hypertension), 162.4, cm, 07/06/21 13:45:00 EDT, Height, kg, 07/06/21 13:45:00 EDT, Dosing Weight Start Date: 09/27/21 Status: Ordered Start: 05-04-2021 End: 12-08-2021 take 1 tablet by mouth once daily Torsemide 10 mg tablet Discontinued 10 mg PO DAILY 60 May 04, 2021 1:00am December 08, 2021 8:41am Start: 05-02-2021 End: 05-04-2021 take 1 tablet by mouth once daily Torsemide 5 mg tablet Discontinued 5 mg PO DAILY May 02, 2021 1:00am May 04, 2021 12:24pm vitamin b12 1 mg oral tablet (2 sources) Vitamin B12 Start: 07-12-2023 cyanocobalamin 1000 mcg oral tablet Dose : 1,000 mcg = 1 tab(s), Oral, qDay, # 90 tab(s), 3 Refill(s), Pharmacy: [facility], [facility] Anemia in CKD (chronic kidney disease), 165, cm, 07/12/23 8:31:00 EDT, Height, kg, 07/12/23 8:18:00 EDT, Dosing Weight Start Date: 07/12/23 Status: Ordered Vitamin D3 1000 intl units oral capsule (2 sources) Start: 11-28-2018 Vitamin D3 100 0 intl units oral capsule Dose : 1,000 International_Unit = 1 cap(s), Oral, qDay, # 100 cap(s), 0 Refill(s) Start Date: 11/28/18 Status: Ordered Vitamin D3 25 mcg (1000 intl units) oral capsule (20 sources) Start: 01-03-2022 Vitamin D3 25 mcg (1000 intl units) oral capsule Dose : 25 mcg = 1 cap(s), Oral, Daily, 0 Refill(s) Start Date: 01/03/22 Status: Ordered Vitamins A,C,B-Ttpm-Uqqjsx (Preservision Areds) [id number] Capsule (20 sources) Start: 12-13-2021 Vitamins A,C,E -Zinc-Copper ([facility]) [id number] Capsule Active 1 NMA PO TWICE A DAY December 13, 2021 12:00am Start: 12-13-2021 take 1 capsule by [facility] twice daily Vitamins A,C,D-Jsfh-Mnhluz (Preservision Areds) [id number] Capsule Active 1 CAP PO TWICE A DAY December 12, 2021 11:00pm Start: 12-13-2021 take 1 capsule by [facility] twice daily Vitamins A,C,Q-Iszh-Mlxliw ([facility]) [id number]-[id number] Capsule Active 1 CAP PO TWICE A DAY December 13, 2021 12:00am Completed/Discontinued Medications Medication Drug Class(es) Dates Sig (Normalized) Sig (Original) amLODIPine 5 mg oral tablet (20 sources) Dihydropyridine Calcium Channel Greta Start: 05-02-2022 End: 11-16-2022 take 1 tablet by mouth once daily Amlodipine 5 mg tablet Discontinued 5 mg PO DAILY May 02, 2022 1:00am November 16, 2022 7:08pm aspirin 81 mg delayed release oral tablet (20 sources) Platelet Aggregation Inhibitor, Nonsteroidal Anti-inflammatory Drug Start: 11-18-2023 End: 02-28-2024 take 1 tablet by mouth once daily Aspirin (Adult Aspirin Regimen) 81 mg tablet,delayed release (DR/EC) Discontinued 81 mg PO DAILY November 18, 2023 12:00am February 28, 2024 4:41pm On Hold: Order Completed Start: 02-15-2023 End: 03-07-2023 Aspirin 81 mg tablet,chewabl e Discontinued 1 {tbl} PO DAILY February 15, 2023 1:00am March 07, 2023 9:25pm Start: 03-22-2022 take 1 tablet by [facility] once daily Aspirin Low Dose 81 mg oral tablet, chewable CHEW AND SWALLOW 1 TABLET BY MOUTH ONCE DAILY AT 8:00AM Start Date: 03/22/22 Status: Ordered Start: 03-16-2022 End: 11-18-2022 take 1 tablet by mouth once daily Aspirin 81 mg tablet,chewable Discontinued 81 mg PO DAILY@0800 April 12, 2022 1:02am November 18, 2022 12:28pm Start: 12-13-2021 take 81 mg by mouth once daily Aspirin Active 81 MG PO DAILY December 13, 2021 12:00am Start: 04-27-2021 Aspirin (Elaina Low Dose Aspirin) 81 mg Tablet,Delayed Release (Dr/Ec) Active 81 MG PO DAILY May 02, 2021 1:00am Start: 11-13-2017 take 1 dose by mouth once daily aspirin Dose : 81 mg =, Oral, qDay Start Date: 11/13/17 Status: Ordered azithromycin 250 mg oral tablet (19 sources) Macrolide Antimicrobial Start: 05-26-2022 End: 10-22-2022 take 2 tablets by mouth every twenty-four hours Azithromycin 250 mg Tablet Discontinued 500 mg PO EVERY 24 HOURS May 26, 2022 12:00am October 22, 2022 8:28pm Start: 05-26-2022 End: 10-22-2022 take 500 mg by mouth every twenty-four hours Azithromycin Discontinued 500 MG PO EVERY 24 HOURS May 26, 2022 12:00am October 22, 2022 8:28pm Budesonide-Formoterol (3 sources) Corticosteroid, beta2-Adrenergic Agonist Start: 02-28-2024 End: 02-28-2024 Budesonide-Formoterol (Symbicort) 160-4.5 mcg/actuation HFA aerosol inhaler Discontinued 1 NMA INHALATION ONCE February 28, 2024 1:00am February 28, 2024 5:41pm bumetanide 2 mg oral tablet (8 sources) Loop Diuretic Start: 04-26-2023 End: 06-27-2023 take 1 tablet by mouth once daily Bumetanide 2 mg tablet Discontinued 2 mg PO DAILY April 26, 2023 1:00am June 27, 2023 1:42pm Start: 12-22-2020 bumetanide 1 m g oral tablet Dose : 0.5 mg = 0.5 tab(s), Oral, qDay, take 1/2 tablet by mouth once daily, # 45 tab(s), 3 Refill(s), Pharmacy: [id number], HTN (hypertension), 162.5, cm, 12/22/20 8:17:00 EDT, Height, kg, 12/22/20 8:17:00 EDT, Dosing Weight Start Date: 12/22/20 Status: Ordered cefdinir 300 mg oral capsule (19 sources) Cephalosporin Antibacterial Start: 05-26-2022 End: 10-22-2022 take 1 capsule by mouth every twelve hours Cefdinir 300 mg Capsule Discontinued 300 mg PO EVERY 12 HOURS May 26, 2022 12:00am October 22, 2022 8:29pm DME MISCellaneous (20 sources) Start: 03-28-2022 DME MISCellaneous See Instructions, Portable oxygen tank and all necessary supplies. Patient needs to use oxygen continuously to keep oxygenation sat greater than 92%. Normally 2 L to 4 L nasal cannula. Dx: MENG with hypoxia, oxygen dependent, # 1 EA, 0 Refill(s), Hypoxia Supplemental oxygen dependent, 88.1 Start Date: 03/28/22 Status: Ordered Start: 03-28-2022 DME MISCellane ous See Instructions, Portable oxygen tank and all necessary supplies. Patient needs to use oxygen continuously to keep oxygenation sat greater than 92%. Normally 2 L to 4 L nasal cannula. Dx: MENG with hypoxia, oxygen dependent, # 1 EA, 0 Refill(s), Hy... Start Date: 03/28/22 Status: Ordered Start: 01-03-2022 DME MISCellane ous See Instructions, Dispense 1 medical alert bracelet/necklace, # 1 EA, 0 Refill(s), 87.9 Start Date: 01/03/22 Status: Ordered Start: 09-21-2020 DME MISCellane ous See Instructions, One touch Delica Lancet 33g, 1 box of 100, testing 2 times daily, # 1 EA, 11 Refill(s), Pharmacy: [id number], Controlled diabetes mellitus with hyperglycemia Abnormal blood sugar, 161.7, cm, 09/21/20 11:00:00 Khanh LOUIS... Start Date: 09/21/20 Status: Ordered fenofibrate 134 mg oral capsule (3 sources) Peroxisome Proliferator Receptor alpha Agonist Start: 02-28-2024 End: 02-28-2024 take 1 capsule by mouth once daily Fenofibrate Micronized 134 mg capsule Discontinued 134 mg PO daily February 28, 2024 1:00am February 28, 2024 5:43pm glimepiride 2 mg oral tablet (20 sources) Sulfonylurea Start: 04-25-2022 End: 03-09-2023 take 1 tablet by mouth once daily Glimepiride 2 mg tablet Discontinued 2 mg PO DAILY May 24, 2022 12:00am March 09, 2023 1:19pm Start: 05-02-2021 take 4 mg by mouth once daily Glimepiride Active 4 MG PO DAILY May 02, 2021 12:00am Start: 12-22-2020 glimepiride 4 mg oral tablet Dose : 4 mg = 1 tab(s), Oral, qDay, take 1 tablet by mouth once daily, # 90 tab(s), 3 Refill(s), Pharmacy: [id number], Diabetes mellitus Diabetes, 162.5, cm, 12/22/20 8:17:00 EDT, Height, kg, 12/22/20 8:17:00 EDT, Dosing Weight Start Date: 12/22/20 Status: Ordered hydroCHLOROthiazide 12.5 mg / lisinopril 20 mg oral tablet (20 sources) Thiazide Diuretic, Angiotensin Converting Enzyme Inhibitor Start: 02-28-2024 End: 02-28-2024 Lisinopril-Hydrochlorothiazi de 20-12.5 mg tablet Discontinued 1 {tbl} PO daily February 28, 2024 1:00am February 28, 2024 5:42pm Start: 05-02-2021 End: 12-16-2021 Lisinopril-Hydrochlorothiazi de 20-12.5 mg tablet Discontinued 1 {tbl} PO DAILY May 02, 2021 1:00am December 16, 2021 11:04am Start: 05-02-2021 End: 12-16-2021 take 1 tablet by mouth once daily Lisinopril-Hydrochlorothiazide Discontin ued 1 TABLET PO DAILY May 02, 2021 1:00am December 16, 2021 11:04am Start: 12-22-2020 take 1 tablet by michelle th once daily hydrochlorothiazide-lisinopril 12.5 mg-2 0 mg oral tablet Dose = 1 tab(s), Oral, Daily, # 90 tab(s), 3 Refill(s), Pharmacy: [id number], HTN (hypertension), 162.5, cm, 12/22/20 8:17:00 EDT, Height, kg, 12/22/20 8:17:00 EDT, Dosing Weight Start Date: 12/22/20 Status: Ordered lisinopril 10 mg oral tablet (20 sources) Angiotensin Converting Enzyme Inhibitor Start: 05-11-2023 End: 02-28-2024 take 1 tablet by mouth once daily Lisinopril 10 mg tablet Discontinued 10 mg PO DAILY June 27, 2023 12:00am February 28, 2024 12:25pm Start: 05-07-2023 lisinopril 10 mg oral tablet Dose : 10 mg = 1 tab(s), Oral, qDay, # 30 tab(s), 0 Refill(s) Start Date: 05/07/23 Status: Ordered Start: 02-09-2023 lisinopril 10 mg oral tablet Dose : 10 mg = 1 tab(s), Oral, Daily, # 90 tab(s), 1 Refill(s), [facility]: [facility] #[id number], 161.5, cm, 02/09/23 14:13:00 EST, Height, kg, 02/09/23 14:13:00 EST, Dosing Weight Start Date: 02/09/23 Status: Ordered Start: 03-12-2022 End: 06-27-2023 take 10 mg by mouth once daily Lisinopril (Zestril) 20 mg tablet Discontinued 10 mg PO DAILY March 12, 2022 4:13am June 27, 2023 1:41pm Start: 12-16-2021 End: 03-12-2022 take 1 tablet by mouth once daily Lisinopril 20 mg Tablet Discontinued 20 mg PO DAILY December 16, 2021 12:00am March 12, 2022 4:13am metFORMIN hydrochloride 500 mg oral tablet (20 sources) Biguanide Start: 05-24-2022 End: 11-16-2022 take 1 tablet by mouth twice daily Metformin 500 mg tablet Discontinued 500 mg PO TWICE A DAY May 24, 2022 12:00am November 16, 2022 7:09pm Start: 01-17-2022 metFORMIN 500 mg oral tablet (IR) Dose : 500 mg = 1 tab(s), Oral, BID, Note dosing change, # 180 tab(s), 1 Refill(s), Pharmacy: [id number], Type 2 diabetes mellitus with hemoglobin A1c goal of less than 7.5% Chronic kidney disease (CKD), 161, cm, 01/17/22 13:27:00 EST, He... Start Date: 01/17/22 Status: Ordered Start: 10-05-2021 metFORMIN 500 mg oral tablet (IR) Dose : 500 mg = 1 tab(s), Oral, BID, Note dosing change, # 180 tab(s), 0 Refill(s), Pharmacy: [facility], Type 2 diabetes mellitus with hemoglobin A1c goal of less than 7.5% Chronic kidney disease (CKD), 162.5, cm, 10/05/21 14:24:0... Start Date: 10/05/21 Status: Ordered Start: 05-02-2021 take 500 mg by mouth twice daily Metformin Active 500 MG PO TWICE A DAY May 02, 2021 12:00am Start: 12-22-2020 End: 12-17-2021 metFORMIN 1000 mg oral table t (IR) Dose : 1,000 mg = 1 tab(s), Oral, BID, # 180 tab(s), 3 Refill(s), Pharmacy: [id number], DM (diabetes mellitus) Diabetes mellitus, 162.5, cm, 12/22/20 8:17:00 EDT, Height, kg, 12/22/20 8:17:00 EDT, Dosing Weight Start Date: 12/22/20 Stop Date: 12/17/21 Status: Ordered [facility] Medication (20 sources) Start: 04-25-2022 [facility] Medicatio n Oxygen 1-3 L/M via NC, 0 Refill(s), 86.3 Start Date: 04/25/22 Status: Ordered Touchet-3 Fatty Acids-Vitamin E 1,000 mg Capsule (3 sources) Start: 05-02-2021 End: 12-10-2023 Touchet-3 Fatty Acids-Vitamin E 1,000 mg Capsule Discontinued 2 NMA PO TWICE A DAY May 02, 2021 1:00am December 10, 2023 6:03pm pantoprazole 40 mg delayed release oral tablet (20 sources) Proton Pump Inhibitor Start: 03-02-2024 End: 03-02-2024 take 1 tablet by mouth twice daily at mealtime Pantoprazole (Protonix) 40 mg tablet,delayed release (DR/EC) Discontinued 40 mg PO TWICE DAILY WITH MEALS 60 March 02, 2024 12:46pm March 02, 2024 12:47pm Start: 06-20-2023 End: 03-02-2024 take 1 tablet by mouth once daily Pantoprazole (Protonix) 40 mg tablet,delayed release (DR/EC) Discontinued 40 mg PO DAILY June 27, 2023 12:00am March 02, 2024 12:46pm Start: 11-18-2022 End: 06-27-2023 take 1 tablet by mouth twice daily Pantoprazole (Protonix) 40 mg tablet,delayed release (DR/EC) Discontinued 40 mg PO TWICE A DAY 180 90 March 09, 2023 1:19pm June 27, 2023 1:42pm predniSONE 20 mg oral tablet (20 sources) Start: 06-25-2024 End: 07-08-2024 take 2 tablets by mouth at breakfast Prednisone 20 mg Tablet Discontinued 40 mg PO WITH BREAKFAST 8 June 25, 2024 12:00am July 08, 2024 9:58am Start: 02-04-2024 End: 02-20-2024 take 4 tablets by mouth once daily, then take 3 tablets by mouth once daily, then take 2 tablets by mouth once daily, then take 1 tablet by mouth once daily, then take 0.5 tablet by mouth once daily Prednisone 10 mg tablet Discontinued 10 mg PO DAILY February 04, 2024 1:00am February 20, 2024 5:45pm Take 4 tablets daily for 3 days then 3 tablets daily for 3 days then 2 tablets daily for 3 days then 1 tablet daily for 3 days then half tablet daily for 4 days Start: 01-10-2024 End: 02-04-2024 take 2 tablets by mouth once daily Prednisone 20 mg tablet Discontinued 40 mg PO DAILY January 10, 2024 12:00am February 04, 2024 6:24pm On Hold: Order Completed Next dose 01/11/2024 Start: 11-20-2023 End: 12-03-2023 take 2 tablets by mouth once daily Prednisone 20 mg tablet Discontinued 40 mg PO DAILY 12 14November 20, 2023 12:00am December 03, 2023 8:21pm Start: 05-25-2023 End: 05-30-2023 predniSONE 20 mg oral tablet Dose : 40 mg = 2 tab(s), Oral, BID, X 5 day(s), # 20 tab(s), 0 Refill(s), 05/30/23 5:39:00 PM EDT Start Date: 05/25/23 Stop Date: 05/30/23 Status: Ordered Start: 05-09-2023 End: 05-15-2023 take 1 tablet by mouth once daily prednisone 10mg tab (TAPER) Taper 40-20-10 mg x 2 days each dose, Oral, Daily, # 14 tab(s), 0 Refill(s), [facility]: [id number], 165.1, cm, 05/07/23 14:29:00 EST, Height, kg, 05/07/23 14:29:00 EST, Dosing Weight Start Date: 05/09/23 Stop Date: 05/15/23 Status: Ordered Start: 02-15-2023 End: 03-07-2023 Prednisone 10 mg tablet Disc ontinued 10 mg PO TWICE A DAY February 15, 2023 1:00am March 07, 2023 9:27pm 1 twice a day for 5 days, then 1 daily for 5 days, then stop Start: 02-08-2023 End: 02-15-2023 take 3 tablets by mouth once daily Prednisone 20 mg tablet Discontinued 60 mg PO DAILY February 08, 2023 1:00am February 15, 2023 4:16pm Start: 02-08-2023 End: 02-15-2023 take 60 mg by mouth once daily Prednisone Discontinued 60 MG PO DAILY February 08, 2023 1:00am February 15, 2023 4:16pm Start: 12-08-2021 take 60 mg by mouth once daily Prednisone Active 60 MG PO DAILY December 08, 2021 12:00am spironolactone 25 mg oral tablet (7 sources) Aldosterone Antagonist Start: 04-26-2023 End: 06-27-2023 take 1 tablet by mouth once daily Spironolactone 25 mg Tablet Discontinued 25 mg PO DAILY April 26, 2023 1:00am June 27, 2023 1:42pm sucralfate 1000 mg oral tablet (20 sources) Aluminum Complex Start: 03-02-2024 End: 03-02-2024 take 1 tablet by mouth four times daily Sucralfate (Carafate) 1 gram tablet Discontinued 1 g PO 4 TIMES DAILY March 02, 2024 12:46pm March 02, 2024 12:47pm Start: 03-02-2024 End: 05-01-2024 take 1 tablet by mouth every six hours Sucralfate 1 gram tablet Active 1 g PO EVERY 6 HOURS 360 90 May 01, 2024 6:17pm Start: 12-28-2023 End: 03-02-2024 take 1 tablet by mouth three times daily Sucralfate (Carafate) 1 gram tablet Discontinued 1 g PO THREE TIMES A DAY 90 February 15, 2024 9:06am March 02, 2024 12:46pm Start: 07-12-2023 Carafate 1 g o ral tablet Dose : 1 gram(s) = 1 tab(s), Oral, BID, # 60 tab(s), 0 Refill(s) Start Date: 07/12/23 Status: Ordered Start: 06-10-2023 Carafate 1 g o ral tablet Dose : 1 gram(s) = 1 tab(s), Oral, BIDAC, 0 Refill(s) Start Date: 06/10/23 Status: Ordered Start: 05-22-2023 sucralfate 1 g oral tablet Dose : 1 gram(s) = 1 tab(s), Oral, BID, # 180 tab(s), 0 Refill(s) Start Date: 05/22/23 Status: Ordered Start: 03-23-2023 End: 06-27-2023 Sucralfate 1 gram tablet Dis continued 1 g PO THREE TIMES A DAY March 23, 2023 3:48pm June 27, 2023 1:42pm Start BID administration after 30 days of TID administration Start: 03-23-2023 End: 12-03-2023 take 1 tablet by mouth twice daily Sucralfate 1 gram tablet Discontinued 1 g PO TWICE A DAY June 27, 2023 12:00am December 03, 2023 8:21pm On Hold: Order Completed Start: 02-23-2023 sucralfate 1 g oral tablet Dose : 1 gram(s) = 1 tab(s), Oral, QID, Managed by GI - filled for GI until pt can be seen, # 120 tab(s), 0 Refill(s), [facility]: [facility] #[id number], GI bleed, 161.5, cm, 02/23/23 11:48:00 EST, Height, kg, 02/23/23 11:38:00 EST, Dosing Weight Start Date: 02/23/23 Status: Ordered Start: 11-23-2022 End: 01-22-2023 sucralfate 1 g oral tablet D ose : 1 gram(s) = 1 tab(s), Oral, QID, # 120 tab(s), 0 Refill(s), [facility]: [facility][id number], GI bleed, 160.5, cm, 01/19/23 11:35:00 EST, Height, kg, 01/19/23 11:35:00 EST, Dosing Weight Start Date: 01/19/23 Status: Ordered Start: 11-18-2022 End: 03-23-2023 take 1 tablet by mouth every six hours Sucralfate 1 gram tablet Discontinued 1 g PO EVERY 6 HOURS 120 30 March 09, 2023 1:19pm March 23, 2023 3:49pm Vitamins A,C,R-Fkhe-Cwpkzm (Preservision Areds) 4,296 mcg-226 mg-90 mg capsule (4 sources) Start: 06-27-2023 End: 11-18-2023 Vitamins A,C,M-Mwah-Sezfna (Preservision Areds) 4,296 mcg-226 mg-90 mg capsule Discontinued 1 NMA PO TWICE A DAY June 27, 2023 12:00am November 18, 2023 2:18pm Start: 06-27-2023 take [address] [facility] twice daily Vitamins A,C,T-Rgkf-Qhqogg (Preservision Areds) 4,296 mcg-226 mg-90 mg capsule Active 1 CAP PO TWICE A DAY June 27, 2023 12:00am Problems Active Problems Problem Classification Problem Date Documented Da te Episodic/Chronic Abdominal hernia (20 sources) Umbilical hernia 09-25-2019 Episodic Acute and unspecified renal failure (12 sources) Acute renal failure syndrome; Translations: [Acute kidney failure, unspecified] Onset: 4 05-03-2023 Episodic Acute myocardial infarction (20 sources) Myocardial infarction; Translations: [Non-ST elevation (NSTEMI) myocardial infarction] Onset: 4 Chronic Acute posthemorrhagic anemia (20 sources) Anemia due to blood loss; Translations: [Acute posthemorrhagic anemia] 03-07-2023 Episodic Administrative/social admission (12 sources) Reduced mobility 02-23-2023 Episodic Asthma (1 source) Unspecified asthma with (acute) exacerbation; Translations: [Unspecified asthma with (acute) exacerbation] Onset: 4 Chronic Cardiac dysrhythmias (20 sources) Sinus tachycardia; Translations: [Tachycardia, unspecified] 05-12-2021 Episodic Chronic kidney disease (20 sources) Chronic kidney disease; Translations: [Chronic kidney disease stage 3] Onset: 4 10-05-2021 Chronic Chronic kidney disease (2 sources) Chronic kidney disease; Translations: [Chronic kidney disease, stage 3b] Onset: 4 Chronic obstructive pulmonary disease and bronchiectasis (20 sources) Chronic obstructive lung disease; Translations: [Acute exacerbation of chronic obstructive airways disease] Onset: 4 11-13-2017 Chronic Coagulation and hemorrhagic disorders (20 sources) Platelet count below reference range; Translations: [Thrombocytopenia, unspecified] Onset: 4 12-16-2021 Chronic Congestive heart failure; nonhypertensive (20 sources) Acute congestive heart failure; Translations: [Acute exacerbation of chronic congestive heart failure] Onset: 4 05-06-2021 Chronic Coronary atherosclerosis and other heart disease (20 sources) Coronary atherosclerosis; Translations: [Atherosclerotic heart disease of [place] coronary artery without angina pectoris] Chronic Deficiency and other anemia (20 sources) Anemia of chronic disease; Translations: [Anemia in other chronic diseases classified elsewhere] 05-12-2021 Chronic Deficiency and other anemia (2 sources) Anemia of chronic renal failure; Translations: [Anemia in chronic kidney disease] Chronic Deficiency and other anemia (20 sources) Anemia due to blood loss 03-21-2023 Chronic Deficiency and other anemia (3 sources) Anemia in chronic kidney disease; Translations: [Anemia in chronic kidney disease] Onset: 3 Chronic Deficiency and other anemia (20 sources) Anemia; Translations: [Anemia, unspecified] Onset: 4 01-03-2022 Episodic Comment on above: Stage 4 CKD.He wante d to continue Oral Iron. Comes for follow up, HGB is increasing as expected 9.9 today, Ferritin/Iron level have normalized. Deficiency and other anemia (20 sources) Anemia, unspecified; Translations: [Anemia, unspecified] Onset: 5 11-16-2022 Episodic Deficiency and other anemia (15 sources) Chronic anemia; Translations: [Anemia, unspecified] 12-18-2023 Episodic Diabetes mellitus with complications (20 sources) Chronic kidney disease due to type 2 diabetes mellitus; Translations: [Type 2 diabetes mellitus with diabetic chronic kidney disease] Onset: 4 Chronic Diabetes mellitus without complication (20 sources) Diabetes mellitus; Translations: [Type 2 diabetes mellitus] Onset: 3 11-13-2017 Chronic Disorders of lipid metabolism (20 sources) Hypercholesterolemia; Translations: [Hyperlipidemia] Onset: 4 11-13-2017 Chronic Essential hypertension (20 sources) Hypertensive disorder; Translations: [Essential (primary) hypertension] Onset: 4 12-02-2018 Chronic Fluid and electrolyte disorders (20 sources) Dehydration; Translations: [Dehydration] Episodic Gastrointestinal hemorrhage (1 source) Chronic or unspecified gastric ulcer with hemorrhage; Translations: [Chronic or unspecified gastric ulcer with hemorrhage] Onset: 4 Chronic Genitourinary symptoms and ill-defined conditions (12 sources) History of chronic renal impairment; Translations: [Personal history of other diseases of urinary system] 04-07-2023 Episodic Gout and other crystal arthropathies (20 sources) Gout; Translations: [Gout, unspecified] Onset: 3 01-03-2022 Chronic Heart valve disorders (20 sources) Aortic valve stenosis; Translations: [Nonrheumatic aortic (valve) stenosis] Onset: 4 Chronic Comment on above: Mild per ECHO Heart valve disorders (20 sources) Heart murmur; Translations: [Cardiac murmur, unspecified] Episodic Hyperplasia of prostate (20 sources) Benign prostatic hyperplasia 11-13-2017 Chronic Hypertension with complications and secondary hypertension (3 sources) Hypertensive heart failure; Translations: [Hypertensive heart disease with heart failure] Onset: 4 Chronic Nutritional deficiencies (20 sources) Vitamin D deficiency; Translations: [Vitamin D deficiency, unspecified] Onset: 3 03-30-2021 Chronic Nutritional deficiencies (9 sources) Iron deficiency; Translations: [Iron deficiency] Onset: 5 05-28-2024 Episodic Comment on above: Iron profile has nor malized. Occlusion or stenosis of precerebral arteries (13 sources) Carotid artery stenosis; Translations: [Occlusion and stenosis of unspecified carotid artery] 04-25-2023 Chronic Other aftercare (20 sources) Post-discharge follow-up 05-06-2021 Episodic Other and ill-defined heart disease (20 sources) Cardiomegaly; Translations: [Mild left ventricular hypertrophy] 04-11-2022 Chronic Comment on above: per ECHO 03/13/22 Other circulatory disease (20 sources) H/O: heart disorder; Translations: [Personal history of other diseases of the circulatory system] 04-11-2022 Episodic Other circulatory disease (6 sources) Personal history of other diseases of the circulatory system; Translations: [Personal history of other diseases of circulatory system] 04-11-2022 Episodic Other congenital anomalies (11 sources) 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 Other diseases of kidney and ureters (20 sources) Chronic renal insufficiency; Translations: [Disorder of kidney and ureter, unspecified] 12-24-2021 Episodic Other diseases of kidney and ureters (20 sources) Renal impairment; Translations: [Disorder of kidney and ureter, unspecified] 04-11-2022 Episodic Other gastrointestinal disorders (5 sources) History of gastrointestinal bleed; Translations: [Personal history of other diseases of the digestive system] 12-26-2023 Episodic Other hematologic conditions (8 sources) Raised cardiac enzyme or marker; Translations: [Other specified abnormalities of plasma proteins] 03-12-2022 Episodic Other hematologic conditions (5 sources) Other specified abnormalities of plasma proteins; Translations: [Other abnormal blood chemistry] Episodic Other injuries and conditions due to external causes (20 sources) History of fall 01-03-2022 Episodic Other liver diseases (20 sources) Elevated liver enzymes level 01-03-2022 Episodic Other lower respiratory disease (19 sources) Pulmonary congestion 11-02-2022 Chronic Other lower respiratory disease (20 sources) Dyspnea; Translations: [Dyspnea, unspecified] Onset: Episodic Other lower respiratory disease (20 sources) Dyspnea at rest 04-15-2020 Episodic Other lower respiratory disease (20 sources) Hypoxemia; Translations: [Hypoxemia] 03-12-2022 Episodic Other lower respiratory disease (20 sources) Dyspnea on exertion 03-22-2022 Episodic Other lower respiratory disease (15 sources) History of chronic obstructive airway disease; Translations: [Personal history of other diseases of the respiratory system] 04-07-2023 Episodic Other lower respiratory disease (7 sources) Hypoxia; Translations: [Hypoxemia] 04-24-2023 Episodic Other lower respiratory disease (2 sources) Shortness of breath; Translations: [Shortness of breath] Onset: 4 Episodic Other non-traumatic joint disorders (20 sources) Multiple joint pain; Translations: [Pain in unspecified joint] 12-24-2021 Episodic Other non-traumatic joint disorders (1 source) Pain in unspecified joint; Translations: [Pain in joint, multiple sites] Episodic Other nutritional; endocrine; and metabolic disorders (20 sources) Obese class I; Translations: [Obesity, unspecified] 12-16-2021 Chronic Other nutritional; endocrine; and metabolic disorders (20 sources) Body mass index 30+ - obesity 04-19-2022 Chronic Other nutritional; endocrine; and metabolic disorders (12 sources) Hyperuricemia 02-23-2023 Episodic Other nutritional; endocrine; and metabolic disorders (12 sources) H/O: diabetes mellitus; Translations: [Personal history of other endocrine, nutritional and metabolic disease] 04-07-2023 Episodic Other screening for suspected conditions (not mental disorders or infectious disease) (20 sources) Prerenal azotemia; Translations: [Other specified abnormal findings of blood chemistry] Onset: 4 05-12-2021 Episodic Other skin disorders (20 sources) Blister 06-26-2019 Episodic Other upper respiratory disease (14 sources) Acute bronchospasm; Translations: [Acute bronchospasm] 02-08-2023 Episodic Other upper respiratory disease (2 sources) Acute bronchospasm; Translations: [Acute bronchospasm] 02-13-2023 Episodic Peripheral and visceral atherosclerosis (2 sources) Atherosclerosis of aorta 07-12-2023 Chronic Pleurisy; pneumothorax; pulmonary collapse (20 sources) Bilateral pleural effusion; Translations: [Pleural effusion, not elsewhere classified] Episodic Residual codes; unclassified (20 sources) Needs influenza immunization 01-15-2020 Episodic Respiratory failure; insufficiency; arrest (adult) (20 sources) [id number] respiratory failure; Translations: [Acute and chronic respiratory failure with hypoxia] Onset: 4 05-06-2021 Chronic Respiratory failure; insufficiency; arrest (adult) (20 sources) Acute respiratory failure; Translations: [Acute respiratory failure with hypoxia] Onset: 4 05-12-2021 Episodic Screening and history of mental health and substance abuse codes (20 sources) Ex-tobacco user 04-19-2022 Episodic Syncope (20 sources) Near syncope; Translations: [Syncope and collapse] 02-14-2023 Episodic Thyroid disorders (20 sources) Hypothyroidism; Translations: [Hypothyroidism, unspecified] Onset: 4 12-02-2018 Chronic Unclassified (20 sources) Patient encounter status 10-05-2021 Unclassified (16 sources) Influenza vaccination status 01-19-2023 Unclassified (1 source) Obesity, class 1; Translations: [Obesity, class 1] Onset: Past or Other Problems Problem Classification Problem Date Documented Date Episodic/Chronic Abdominal pain (4 sources) Abdominal pain; Translations: [Unspecified abdominal pain] Onset: 01-08-20 24 12-10-2023 Episodic Deficiency and other anemia (1 source) Iron deficiency anemia, unspecified; Translations: [Iron deficiency anemia, unspecified] Onset: 02-19-20 24 Episodic Deficiency and other anemia (2 sources) Other iron deficiency anemias; Translations: [Other iron deficiency anemias] Onset: 12-12-19 Episodic Gastroduodenal ulcer (except hemorrhage) (6 sources) H/O: peptic ulcer; Translations: [Personal history of peptic ulcer disease] Onset: 06-09-19 24 Episodic Gastrointestinal hemorrhage (20 sources) Gastrointestinal hemorrhage; Translations: [Gastrointestinal hemorrhage, unspecified] Onset: 02-04-20 24 11-16-2022 Episodic Malaise and fatigue (20 sources) Asthenia; Translations: [Other malaise] Onset: 03-14-19 Episodic Other aftercare (1 source) Encounter for other specified aftercare; Translations: [Encounter for other specified aftercare] Onset: 11-21-19 24 Episodic Other diseases of kidney and ureters (20 sources) Disorder of kidney and ureter, unspecified; Translations: [Unspecified disorder of kidney and ureter] Onset: 12-19-19 Episodic Other gastrointestinal disorders (1 source) Personal history of other diseases of the digestive system; Translations: [Personal history of other diseases of the digestive system] Onset: 01-10-20 Episodic Other lower respiratory disease (10 sources) Hypoxemia; Translations: [Hypoxemia] Onset: 11-16-19 24 Episodic Other lower respiratory disease (5 sources) Dyspnea, unspecified; Translations: [Other respiratory abnormalities] Onset: 03-14-19 25 04-26-2023 Episodic Other lower respiratory disease (1 source) Personal history of other diseases of the respiratory system; Translations: [Personal history of other diseases of the respiratory system] Onset: 12-19-19 Episodic Residual codes; unclassified (20 sources) History of cardiac catheterization; Translations: [Other specified postprocedural states] Onset: 03-12-1903-17-2022 Episodic Comment on above: LEFT MAIN: Mild calc ification, proximal: eccentric: 25 % Stenosis; LEFT ANTERIOR DESCENDING ARTERY: Mild luminal irregularities; PROX LAD: Mild calcificationDIAGONAL 1: Proximal - Moderate calcification, Proximal - [place] bend with 50 % Stenosis; CIRCUMFLEX ARTERY: PROX CIRC: Mild calcification, Mild luminal irregularities; RIGHT CORONARY ARTERY: Mild luminal irregularities; VALVE FINDINGS: Aortic Valve Calcification - moderate; per cardiac cath Dr. Blunt 03/15/22 Residual codes; unclassified (1 source) Other specified postprocedural states; Translations: [Other specified postprocedural states] Onset: 12-19-19 Episodic Results Test Name Value Interpretation Reference Range Facility Anion gap in Serum or Plasma Ordered By: Manuela Washburn on 08-01-2024 Anion gap [Moles/Vol] 12 mmol/L 07-24 [facility] BUN/creatinine ratioOrdered By: Manuela Washburn on 08-01-2024 Urea nitrogen/Creatinine [Mass ratio] 27.6 mg/mg High 12-29 [facility] Carbon dioxide, total [Moles /volume] in Central venous bloodOrdered By: Manuela Washburn on 08-01-2024 CO2 [Moles/Vol] 31.1 mmol/L 21.0-32.0 [facility] Chloride assayOrdered By: Nadege Washburn on 08-01-2024 Chloride [Moles/Vol] 101 mmol/L 98-108 [facility] Glomerular filtration rate ( GFR) estimation/1.73 sq m using serum, plasma, or whole bOrdered By: Manuela Washburn on 08-01-2024 GFR/1.73 sq M.predicted among non-blacks MDRD (S/P/Bld) [Vol rate/Area] 31 mL/min/{1.73_m2} Low >60 [facility] Comment on above: mL/min/1.73m2 CKD-EP I Creatinine Equation (2020) Potassium measurement (mass/ volume)Ordered By: Manuela Washburn on 08-01-2024 Potassium (Unsp spec) [Mass/Vol] 3.7 mmol/L 3.3-5.1 [facility] Renal Profileon 08-01-2024 Albumin [Mass/Vol] 3.9 g/dL Normal 3.4-4.8 [facility] Comment on above: Performed By: #### L [id number] ####[facility] [address] [place], [address] BUN/CRE 27.6 RATIO High 10-20 [facility] Comment on above: Performed By: #### [id number] ####[facility] [address] [place], [address] Calcium [Mass/Vol] 9.8 mg/dL Normal 7.6-11.0 [facility] Comment on above: Performed By: #### [id number] ####[facility] [address] [place], [address] Chloride [Moles/Vol] 101 mmol/L Normal 98-108 [facility] Comment on above: Performed By: #### [id number] ####[facility] [address] [place], [address] CO2 [Moles/Vol] 31.1 mmol/L Normal 21.0-32.0 [facility] Comment on above: Performed By: #### [id number] ####[facility] [address] [place], [address] Creatinine [Mass/Vol] 2.08 mg/dL High 0.70-1.20 [facility] Comment on above: Performed By: #### [id number] ####[facility] [address] [place], [address] GAP 12 Normal 5-15 [facility] Comment on above: Performed By: #### [id number] ####[facility] [address] [place], [address] GFR/1.73 sq M.predicted among non-blacks MDRD (S/P/Bld) [Vol rate/Area] 31 mL/min/{1.73_m2} Low >60 [facility] Comment on above: Result Comment: mL/m in/1.73m2 CKD-EPI Creatinine Equation (2020) Performed By: #### [id number] ####[facility] [address] [place], [address] Glucose [Mass/Vol] 162 mg/dL High 70-99 [facility] Comment on above: Performed By: #### L 500.3600 ####[facility] [address] [place], [address] Phosphate [Mass/Vol] 3.3 mg/dL Normal 2.7-4.5 [facility] Comment on above: Performed By: #### L 500.3600 ####[facility] [address] [place], [address] Potassium [Moles/Vol] 3.7 mmol/L Normal 3.3-5.1 [facility] Comment on above: Performed By: #### L 500.3600 ####[facility] [address] [place], [address] Sodium [Moles/Vol] 145 mmol/L Normal 133-145 [facility] Comment on above: Performed By: #### L 500.3600 ####[facility] [address] [place], [address] Urea nitrogen [Mass/Vol] 58 mg/dL High 4-19 [facility] Comment on above: Performed By: #### L 500.3600 ####[facility] [address] [place], [address] Serum creatinine measurement (mass/volume)Ordered By: Manuela Washburn on 08-01-2024 Creatinine [Mass/Vol] 2.08 mg/dL High 0.70-1.20 [facility] Serum glucose measurement (m ass/volume)Ordered By: Manuela Washburn on 08-01-2024 Glucose [Mass/Vol] 162 mg/dL High 70-99 [facility] Serum or plasma albumin elmira urement (mass/volume)Ordered By: Manuela Washburn on 08-01-2024 Albumin [Mass/Vol] 3.9 g/dL 3.4-4.8 [facility] Serum or plasma calcium elmira urement (mass/volume)Ordered By: Manuela Washburn on 08-01-2024 Calcium [Mass/Vol] 9.8 mg/dL 7.6-11.0 [facility] Serum or plasma urea nitroge n measurement (mass/volume)Ordered By: Manuela Washburn on 08-01-2024 Urea nitrogen [Mass/Vol] 58 mg/dL High 4-19 [facility] Sodium levelOrdered By: Carline Washburn on 08-01-2024 Sodium [Moles/Vol] 145 mmol/L 133-145 [facility] Gastroenterology Visit Repor ton 07-14-2024 Gastroenterology Visit Report Normal [facility] Anion gap in Serum or Plasma Ordered By: Manuela Washburn on 07-04-2024 Anion gap [Moles/Vol] 14 mmol/L 5-15 [facility] BUN/creatinine ratioOrdered By: Manuela Washburn on 07-04-2024 Urea nitrogen/Creatinine [Mass ratio] 36.2 mg/mg High 10-20 [facility] Basic Metabolic Profile (BMP )on 07-04-2024 BUN/CRE 36.2 RATIO High 12-29 [facility] Comment on above: Performed By: #### L 500.2500, L509.1000 ####[facility] [address] [place], [address] Calcium [Mass/Vol] 8.9 mg/dL Normal 7.6-11.0 [facility] Comment on above: Performed By: #### L 500.2500, L509.1000 ####[facility] [address] [place], [address] Chloride [Moles/Vol] 108 mmol/L Normal 98-108 [facility] Comment on above: Performed By: #### L 500.2500, L509.1000 ####[facility] [address] [place], [address] CO2 [Moles/Vol] 23.7 mmol/L Normal 21.0-32.0 [facility] Comment on above: Performed By: #### L 500.2500, L509.1000 ####[facility] [address] [place], [address] Creatinine [Mass/Vol] 2.93 mg/dL High 0.70-1.20 [facility] Comment on above: Performed By: #### L 500.2500, L509.1000 ####[facility] [address] [place], [address] GAP 14 Normal 5-15 [facility] Comment on above: Performed By: #### L 500.2500, L509.1000 ####[facility] [address] [place], [address] GFR/1.73 sq M.predicted among non-blacks MDRD (S/P/Bld) [Vol rate/Area] 20 mL/min/{1.73_m2} Low >60 [facility] Comment on above: Result Comment: mL/m in/1.73m2 CKD-EPI Creatinine Equation (2020) Performed By: #### L 500.2500, L509.1000 ####[facility] [address] [place], [address] Glucose [Mass/Vol] 157 mg/dL High 70-99 [facility] Comment on above: Performed By: #### L 500.2500, L509.1000 ####[facility] [address] [place], [address] Potassium [Moles/Vol] 4.1 mmol/L Normal 3.3-5.1 [facility] Comment on above: Performed By: #### L 500.2500, L509.1000 ####[facility] [address] [place], [address] Sodium [Moles/Vol] 145 mmol/L Normal 133-145 [facility] Comment on above: Performed By: #### L 500.2500, L509.1000 ####[facility] [address] [place], [address] Urea nitrogen [Mass/Vol] 106 mg/dL Invalid Interpretation Code 06-28 [facility] Comment on above: Result Comment: Crit ical Result(s) Called at: 1900 by: SCOTT BAILEY TO ??Results read back by same. Performed By: #### L 500.2500, L509.1000 ####[facility] [address] [place], [address] Carbon dioxide, total [Moles /volume] in Central venous bloodOrdered By: Manuela Washburn on 07-04-2024 CO2 [Moles/Vol] 23.7 mmol/L 21.0-32.0 [facility] Chloride assayOrdered By: Nadege Washburn on 07-04-2024 Chloride [Moles/Vol] 108 mmol/L 98-108 [facility] Glomerular filtration rate ( GFR) estimation/1.73 sq m using serum, plasma, or whole bOrdered By: Manuela Washburn on 07-04-2024 GFR/1.73 sq M.predicted among non-blacks MDRD (S/P/Bld) [Vol rate/Area] 20 mL/min/{1.73_m2} Low >60 [facility] Comment on above: mL/min/1.73m2 CKD-EP I Creatinine Equation (2020) PTHINon 07-04-2024 PTH 154 pg/mL High 11-61 [facility] Comment on above: Performed By: #### L 500.2500, L509.1000 ####[facility] [address] [place], [address] Potassium measurement (mass/ volume)Ordered By: Manuela Washburn on 07-04-2024 Potassium (Unsp spec) [Mass/Vol] 4.1 mmol/L 3.3-5.1 [facility] Serum creatinine measurement (mass/volume)Ordered By: Manuela Washburn on 07-04-2024 Creatinine [Mass/Vol] 2.93 mg/dL High 0.70-1.20 [facility] Serum glucose measurement (m ass/volume)Ordered By: Manuela Washburn on 07-04-2024 Glucose [Mass/Vol] 157 mg/dL High 70-99 [facility] Serum or plasma calcium elmira urement (mass/volume)Ordered By: Manuela Washburn on 07-04-2024 Calcium [Mass/Vol] 8.9 mg/dL 7.6-11.0 [facility] Serum or plasma urea nitroge n measurement (mass/volume)Ordered By: Manuela Washburn on 07-04-2024 Urea nitrogen [Mass/Vol] 106 mg/dL High 06-28 [facility] Comment on above: Critical Result(s) C alled at: 1900 by: SCOTT BAILEY TO DR. AVITIA Results read back by same. Sodium levelOrdered By: Carline Washburn on 07-04-2024 Sodium [Moles/Vol] 145 mmol/L 133-145 [facility] Basic Metabolic Profile (BMP )on 07-02-2024 BUN Normal 06-28 [facility] Comment on above: Result Comment: Canc elled via OM: Order cancelled - Patient discharged Performed By: #### L 500.2500, L100.0100 ####[facility] [address] [place], [address] BUN/CRE Normal 12-29 [facility] Comment on above: Result Comment: Canc elled via OM: Order cancelled - Patient discharged Performed By: #### L 500.2500, L100.0100 ####[facility] [address] [place], [address] Calcium Normal 7.6-11.0 [facility] Comment on above: Result Comment: Canc elled via OM: Order cancelled - Patient discharged Performed By: #### L 500.2500, L100.0100 ####[facility] [address] [place], [address] CL Normal 98-108 [facility] Comment on above: Result Comment: Canc elled via OM: Order cancelled - Patient discharged Performed By: #### L 500.2500, L100.0100 ####[facility] [address] [place], [address] CO2 Normal 21.0-32.0 [facility] Comment on above: Result Comment: Canc elled via OM: Order cancelled - Patient discharged Performed By: #### L 500.2500, L100.0100 ####[facility] [address] [place], [address] CREAT,SERUM Normal 0.70-1.20 [facility] Comment on above: Result Comment: Canc elled via OM: Order cancelled - Patient discharged Performed By: #### L 500.2500, L100.0100 ####[facility] [address] [place], [address] eGFR Normal >60 [facility] Comment on above: Result Comment: Canc elled via OM: Order cancelled - Patient discharged Performed By: #### L 500.2500, L100.0100 ####[facility] [address] [place], [address] GAP Normal 5-15 [facility] Comment on above: Result Comment: Canc elled via OM: Order cancelled - Patient discharged Performed By: #### L 500.2500, L100.0100 ####[facility] [address] [place], [address] GLU Normal 70-99 [facility] Comment on above: Result Comment: Canc elled via OM: Order cancelled - Patient discharged Performed By: #### L 500.2500, L100.0100 ####[facility] [address] [place], [address] Potassium Normal 3.3-5.1 [facility] Comment on above: Result Comment: Canc elled via OM: Order cancelled - Patient discharged Performed By: #### L 500.2500, L100.0100 ####[facility] [address] [place], [address] Basic Metabolic Profile (BMP) Normal 133-145 [facility] Comment on above: Result Comment: Canc elled via OM: Order cancelled - Patient discharged Performed By: #### L 500.2500, L100.0100 ####[facility] [address] [place], [address] CBC W/Diff, Automatedon 04-2 Absolute Neut Normal 2.0-7.7 [facility] Comment on above: Result Comment: Canc elled via OM: Order cancelled - Patient discharged Performed By: #### L 500.2500, L100.0100 ####[facility] [address] [place], [address] HCT Normal 40-54 [facility] Comment on above: Result Comment: Canc elled via OM: Order cancelled - Patient discharged Performed By: #### L 500.2500, L100.0100 ####[facility] [address] [place], [address] HGB Normal 13.0-16.5 [facility] Comment on above: Result Comment: Canc elled via OM: Order cancelled - Patient discharged Performed By: #### L 500.2500, L100.0100 ####[facility] [address] [place], [address] MCH Normal 27.0-32.0 [facility] Comment on above: Result Comment: Canc elled via OM: Order cancelled - Patient discharged Performed By: #### L 500.2500, L100.0100 ####[facility] [address] [place], [address] MCHC Normal 32-36 [facility] Comment on above: Result Comment: Canc elled via OM: Order cancelled - Patient discharged Performed By: #### L 500.2500, L100.0100 ####[facility] [address] [place], [address] MCV Normal 80-94 [facility] Comment on above: Result Comment: Canc elled via OM: Order cancelled - Patient discharged Performed By: #### L 500.2500, L100.0100 ####[facility] [address] [place], [address] NEUT% Normal 47-70 [facility] Comment on above: Result Comment: Canc elled via OM: Order cancelled - Patient discharged Performed By: #### L 500.2500, L100.0100 ####[facility] [address] [place], [address] PLT Normal 150-450 [facility] Comment on above: Result Comment: Canc elled via OM: Order cancelled - Patient discharged Performed By: #### L 500.2500, L100.0100 ####[facility] [address] [place], [address] RBC Normal 4.6-6.2 [facility] Comment on above: Result Comment: Canc elled via OM: Order cancelled - Patient discharged Performed By: #### L 500.2500, L100.0100 ####[facility] [address] [place], [address] RDW CV Normal 11.6-14.6 [facility] Comment on above: Result Comment: Canc elled via OM: Order cancelled - Patient discharged Performed By: #### L 500.2500, L100.0100 ####[facility] [address] [place], [address] RDW SD Normal 35.1-43.9 [facility] Comment on above: Result Comment: Canc elled via OM: Order cancelled - Patient discharged Performed By: #### L 500.2500, L100.0100 ####[facility] [address] [place], [address] WBC Normal 4.4-11.0 [facility] Comment on above: Result Comment: Canc elled via OM: Order cancelled - Patient discharged Performed By: #### L 500.2500, L100.0100 ####[facility] [address] [place], [address] Basic Metabolic Profile (BMP )on 07-01-2024 BUN Normal 4-19 [facility] Comment on above: Result Comment: Canc elled via OM: Order cancelled - Patient discharged Performed By: #### L 500.2500, L100.0100 ####[facility] [address] [place], [address] BUN/CRE Normal 10-20 [facility] Comment on above: Result Comment: Canc elled via OM: Order cancelled - Patient discharged Performed By: #### L 500.2500, L100.0100 ####[facility] [address] [place], [address] Calcium Normal 7.6-11.0 [facility] Comment on above: Result Comment: Canc elled via OM: Order cancelled - Patient discharged Performed By: #### L 500.2500, L100.0100 ####[facility] [address] [place], [address] CL Normal 98-108 [facility] Comment on above: Result Comment: Canc elled via OM: Order cancelled - Patient discharged Performed By: #### L 500.2500, L100.0100 ####[facility] [address] [place], [address] CO2 Normal 21.0-32.0 [facility] Comment on above: Result Comment: Canc elled via OM: Order cancelled - Patient discharged Performed By: #### L 500.2500, L100.0100 ####[facility] [address] [place], [address] CREAT,SERUM Normal 0.70-1.20 [facility] Comment on above: Result Comment: Canc elled via OM: Order cancelled - Patient discharged Performed By: #### L 500.2500, L100.0100 ####[facility] [address] [place], [address] eGFR Normal >60 [facility] Comment on above: Result Comment: Canc elled via OM: Order cancelled - Patient discharged Performed By: #### L 500.2500, L100.0100 ####[facility] [address] [place], [address] GAP Normal 5-15 [facility] Comment on above: Result Comment: Canc elled via OM: Order cancelled - Patient discharged Performed By: #### L 500.2500, L100.0100 ####[facility] [address] [place], [address] GLU Normal 70-99 [facility] Comment on above: Result Comment: Canc elled via OM: Order cancelled - Patient discharged Performed By: #### L 500.2500, L100.0100 ####[facility] [address] [place], [address] Potassium Normal 3.3-5.1 [facility] Comment on above: Result Comment: Canc elled via OM: Order cancelled - Patient discharged Performed By: #### L 500.2500, L100.0100 ####[facility] [address] [place], [address] Basic Metabolic Profile (BMP) Normal 133-145 [facility] Comment on above: Result Comment: Canc elled via OM: Order cancelled - Patient discharged Performed By: #### L 500.2500, L100.0100 ####[facility] [address] [place], [address] CBC W/Diff, Automatedon 04-2 Absolute Neut Normal 2.0-7.7 [facility] Comment on above: Result Comment: Canc elled via OM: Order cancelled - Patient discharged Performed By: #### L 500.2500, L100.0100 ####[facility] [address] [place], [address] HCT Normal 40-54 [facility] Comment on above: Result Comment: Canc elled via OM: Order cancelled - Patient discharged Performed By: #### L 500.2500, L100.0100 ####[facility] [address] [place], [address] HGB Normal 13.0-16.5 [facility] Comment on above: Result Comment: Canc elled via OM: Order cancelled - Patient discharged Performed By: #### L 500.2500, L100.0100 ####[facility] [address] [place], [address] MCH Normal 27.0-32.0 [facility] Comment on above: Result Comment: Canc elled via OM: Order cancelled - Patient discharged Performed By: #### L 500.2500, L100.0100 ####[facility] [address] [place], [address] MCHC Normal 32-36 [facility] Comment on above: Result Comment: Canc elled via OM: Order cancelled - Patient discharged Performed By: #### L 500.2500, L100.0100 ####[facility] [address] [place], [address] MCV Normal 80-94 [facility] Comment on above: Result Comment: Canc elled via OM: Order cancelled - Patient discharged Performed By: #### L 500.2500, L100.0100 ####[facility] [address] [place], [address] NEUT% Normal 47-70 [facility] Comment on above: Result Comment: Canc elled via OM: Order cancelled - Patient discharged Performed By: #### L 500.2500, L100.0100 ####[facility] [address] [place], [address] PLT Normal 150-450 [facility] Comment on above: Result Comment: Canc elled via OM: Order cancelled - Patient discharged Performed By: #### L 500.2500, L100.0100 ####[facility] [address] [place], [address] RBC Normal 4.6-6.2 [facility] Comment on above: Result Comment: Canc elled via OM: Order cancelled - Patient discharged Performed By: #### L 500.2500, L100.0100 ####[facility] [address] [place], [address] RDW CV Normal 11.6-14.6 [facility] Comment on above: Result Comment: Canc elled via OM: Order cancelled - Patient discharged Performed By: #### L 500.2500, L100.0100 ####[facility] [address] [place], [address] RDW SD Normal 35.1-43.9 [facility] Comment on above: Result Comment: Canc elled via OM: Order cancelled - Patient discharged Performed By: #### L 500.2500, L100.0100 ####[facility] [address] [place], [address] WBC Normal 4.4-11.0 [facility] Comment on above: Result Comment: Canc elled via OM: Order cancelled - Patient discharged Performed By: #### L 500.2500, L100.0100 ####[facility] [address] [place], [address] Absolute lymphocyte countOrd ered By: Yuridia Hernandez on 06-30-2024 Lymphocytes Auto (Unsp spec) [#/Vol] 2.06 10*3/uL 0.83-4.51 [facility] Absolute neutrophil countOrd ered By: Yuridia Hernandez on 06-30-2024 Neutrophils (Bld) [#/Vol] 11.8 10*3/uL High 2.0-7.7 [facility] Anion gap in Serum or Plasma Ordered By: Yuridia Hernandez on 06-30-2024 Anion gap [Moles/Vol] 16 mmol/L High 5-15 [facility] Automated lymphocyte count a s percentage of total leukocytesOrdered By: Yuridia Hernandez on 06-30-2024 Lymphocytes/100 WBC Auto (Unsp spec) 13.2 % Low 19-41 [facility] BUN/creatinine ratioOrdered By: Yuridia Hernandez on 06-30-2024 Urea nitrogen/Creatinine [Mass ratio] 36.0 mg/mg High 10-20 [facility] Basic Metabolic Profile (BMP )on 06-30-2024 BUN Normal 4-19 [facility] Comment on above: Result Comment: Canc elled via OM: Order cancelled - Patient discharged Performed By: #### L 500.2500, L100.0100 ####[facility] [address] [place], [address] BUN/CRE Normal 10-20 [facility] Comment on above: Result Comment: Canc elled via OM: Order cancelled - Patient discharged Performed By: #### L 500.2500, L100.0100 ####[facility] [address] [place], [address] Calcium Normal 7.6-11.0 [facility] Comment on above: Result Comment: Canc elled via OM: Order cancelled - Patient discharged Performed By: #### L 500.2500, L100.0100 ####[place] [facility] [address] [place], [address] CL Normal 98-108 [facility] Comment on above: Result Comment: Canc elled via OM: Order cancelled - Patient discharged Performed By: #### L 500.2500, L100.0100 ####[facility] [address] [place], [address] CO2 Normal 21.0-32.0 [facility] Comment on above: Result Comment: Canc elled via OM: Order cancelled - Patient discharged Performed By: #### L 500.2500, L100.0100 ####[facility] [address] [place], [address] CREAT,SERUM Normal 0.70-1.20 [facility] Comment on above: Result Comment: Canc elled via OM: Order cancelled - Patient discharged Performed By: #### L 500.2500, L100.0100 ####[facility] [address] [place], [address] eGFR Normal >60 [facility] Comment on above: Result Comment: Canc elled via OM: Order cancelled - Patient discharged Performed By: #### L 500.2500, L100.0100 ####[facility] [address] [place], [address] GAP Normal 5-15 [facility] Comment on above: Result Comment: Canc elled via OM: Order cancelled - Patient discharged Performed By: #### L 500.2500, L100.0100 ####[facility] [address] [place], [address] GLU Normal 70-99 [facility] Comment on above: Result Comment: Canc elled via OM: Order cancelled - Patient discharged Performed By: #### L 500.2500, L100.0100 ####[facility] [address] [place], [address] Potassium Normal 3.3-5.1 [facility] Comment on above: Result Comment: Canc elled via OM: Order cancelled - Patient discharged Performed By: #### L 500.2500, L100.0100 ####[facility] [address] [place], [address] Basic Metabolic Profile (BMP) Normal 133-145 [facility] Comment on above: Result Comment: Canc elled via OM: Order cancelled - Patient discharged Performed By: #### L 500.2500, L100.0100 ####[facility] [address] [place], [address] Basophil percentageOrdered B y: Yuridia Hernandez on 06-30-2024 Basophils/100 WBC (Bld) 0.1 % 0-1 [facility] Bilirubin, totalOrdered By: Yuridia Hernandez on 06-30-2024 Bilirubin [Mass/Vol] 0.34 mg/dL 0.00-1.30 [facility] CBC W/Diff, Automatedon -04 12-2024 Absolute Lymph 2.06 X10 3/uL Normal 0.83-4.51 [facility] Comment on above: Performed By: #### L 500.4050, L100.0100, [id number] ####[facility] [address] [place], [address] Absolute Neut 11.8 X10 3/uL High 2.0-7.7 [facility] Comment on above: Performed By: #### L 500.4050, L100.0100, L503.7505 ####[facility] [address] [place], [address] Basophils/100 WBC (Bld) 0.1 % Normal 0-1 [facility] Comment on above: Performed By: #### L 500.4050, L100.0100, L503.7505 ####[facility] [address] [place], [address] Eosinophils/100 WBC (Bld) 3.4 % Normal 0-5 [facility] Comment on above: Performed By: #### L 500.4050, L100.0100, L503.7505 ####[facility] [address] [place], [address] Erythrocyte distribution width (RBC) [Ratio] 13.2 % Normal 11.6-14.6 [facility] Comment on above: Performed By: #### L 500.4050, L100.0100, L503.7505 ####[facility] [address] [place], [address] Hematocrit (Bld) [Volume fraction] 29.6 % Low 40-54 [facility] Comment on above: Performed By: #### L 500.4050, L100.0100, [id number] ####[facility] [address] [place], [address] Hemoglobin (Bld) [Mass/Vol] 10.0 g/dL Low 13.0-16.5 [facility] Comment on above: Performed By: #### L 500.4050, L100.0100, L503.7505 ####[facility] [address] [place], [address] IG% 0.500 Normal 0.0-0.9 [facility] Comment on above: Result Comment: IG% - Immature Granulocytes (promyelocytes, myelocytes andmetamyelocytes) > 1% indicates that a LEFT SHIFT is Present. Performed By: #### L 500.4050, L100.0100, L503.7505 ####[facility] [address] [place], [address] Lymphocytes/100 WBC (Bld) 13.2 % Low 19-41 [facility] Comment on above: Performed By: #### L 500.4050, L100.0100, [id number] ####[facility] [address] [place], [address] MCH (RBC) [Entitic mass] 31.3 pg Normal 27.0-32.0 [facility] Comment on above: Performed By: #### L 500.4050, L100.0100, [id number] ####[facility] [address] [place], [address] MCHC (RBC) [Mass/Vol] 33.8 g/dL Normal 32-36 [facility] Comment on above: Performed By: #### L 500.4050, L100.0100, [id number] ####[facility] [address] [place], [address] MCV (RBC) [Entitic vol] 92.8 fL Normal 80-94 [facility] Comment on above: Performed By: #### L 500.4050, L100.0100, L503.7505 ####[facility] [address] [place], [address] Monocytes/100 WBC (Bld) 7.5 % Normal 0-10 [facility] Comment on above: Performed By: #### L 500.4050, L100.0100, L503.7505 ####[facility] [address] [place], [address] Neutrophils/100 WBC (Bld) 75.3 % High 47-70 [facility] Comment on above: Performed By: #### L 500.4050, L100.0100, L503.7505 ####[facility] [address] [place], [address] Nucleated RBC (Bld) [#/Vol] 0 10*3/uL Normal 0-5 [facility] Comment on above: Performed By: #### L 500.4050, L100.0100, L503.7505 ####[facility] [address] [place], [address] Platelet mean volume (Bld) [Entitic vol] 11.1 fL Normal 6.2-12.0 [facility] Comment on above: Performed By: #### L 500.4050, L100.0100, L503.7505 ####[facility] [address] [place], [address] Platelets (Bld) [#/Vol] 174 10*3/uL Normal 150-450 [facility] Comment on above: Performed By: #### L 500.4050, L100.0100, L503.7505 ####[facility] [address] [place], [address] RBC (Bld) [#/Vol] 3.19 10*6/uL Low 4.6-6.2 [facility] Comment on above: Performed By: #### L 500.4050, L100.0100, L503.7505 ####[facility] [address] [place], [address] RDW SD 44.5 fl High 35.1-43.9 [facility] Comment on above: Performed By: #### L 500.4050, L100.0100, L503.7505 ####[facility] [address] [place], [address] WBC (Bld) [#/Vol] 15.7 10*3/uL High 4.4-11.0 [facility] Comment on above: Performed By: #### L 500.4050, L100.0100, L503.7505 ####[facility] [address] [place], [address] Absolute Neut Normal 2.0-7.7 [facility] Comment on above: Result Comment: Canc elled via OM: Order cancelled - Patient discharged Performed By: #### L 500.2500, L100.0100 ####[facility] [address] [place], [address] HCT Normal 40-54 [facility] Comment on above: Result Comment: Canc elled via OM: Order cancelled - Patient discharged Performed By: #### L 500.2500, L100.0100 ####[facility] [address] [place], [address] HGB Normal 13.0-16.5 [facility] Comment on above: Result Comment: Canc elled via OM: Order cancelled - Patient discharged Performed By: #### L 500.2500, L100.0100 ####[facility] [address] [place], [address] MCH Normal 27.0-32.0 [facility] Comment on above: Result Comment: Canc elled via OM: Order cancelled - Patient discharged Performed By: #### L 500.2500, L100.0100 ####[facility] [address] [place], [address] MCHC Normal 32-36 [facility] Comment on above: Result Comment: Canc elled via OM: Order cancelled - Patient discharged Performed By: #### L 500.2500, L100.0100 ####[facility] [address] [place], [address] MCV Normal 80-94 [facility] Comment on above: Result Comment: Canc elled via OM: Order cancelled - Patient discharged Performed By: #### L 500.2500, L100.0100 ####[facility] [address] [place], [address] NEUT% Normal 47-70 [facility] Comment on above: Result Comment: Canc elled via OM: Order cancelled - Patient discharged Performed By: #### L 500.2500, L100.0100 ####[facility] [address] [place], [address] PLT Normal 150-450 [facility] Comment on above: Result Comment: Canc elled via OM: Order cancelled - Patient discharged Performed By: #### L 500.2500, L100.0100 ####[facility] [address] [place], [address] RBC Normal 4.6-6.2 [facility] Comment on above: Result Comment: Canc elled via OM: Order cancelled - Patient discharged Performed By: #### L 500.2500, L100.0100 ####[facility] [address] [place], [address] RDW CV Normal 11.6-14.6 [facility] Comment on above: Result Comment: Canc elled via OM: Order cancelled - Patient discharged Performed By: #### L 500.2500, L100.0100 ####[facility] [address] [place], [address] RDW SD Normal 35.1-43.9 [facility] Comment on above: Result Comment: Canc elled via OM: Order cancelled - Patient discharged Performed By: #### L 500.2500, L100.0100 ####[facility] [address] [place], [address] WBC Normal 4.4-11.0 [facility] Comment on above: Result Comment: Canc elled via OM: Order cancelled - Patient discharged Performed By: #### L 500.2500, L100.0100 ####[facility] [address] [place], [address] Carbon dioxide, total [Moles /volume] in Central venous bloodOrdered By: Yuridia Hernandez on 06-30-2024 CO2 [Moles/Vol] 22.7 mmol/L 21.0-32.0 [facility] Chest PA and Lateralon 06-30 Chest PA and Lateral Normal [facility] Chloride assayOrdered By: Mike Hernandez on 06-30-2024 Chloride [Moles/Vol] 102 mmol/L 98-108 [facility] Comprehensive Metabolic Prof ilon 06-30-2024 Albumin [Mass/Vol] 3.9 g/dL Normal 3.4-4.8 [facility] Comment on above: Performed By: #### L 500.4050, L100.0100, L503.7505 ####[facility] [address] [place], [address] Albumin/Globulin [Mass ratio] 1.5 {ratio} Normal 0.9-2.4 [facility] Comment on above: Performed By: #### L 500.4050, L100.0100, L503.7505 ####[facility] [address] [place], [address] ALK PHOS 80 U/L Normal 40-129 [facility] Comment on above: Performed By: #### L 500.4050, L100.0100, L503.7505 ####[facility] [address] [place], [address] ALT [Catalytic activity/Vol] 149 U/L High <=46 [facility] Comment on above: Performed By: #### L 500.4050, L100.0100, L503.7505 ####[facility] [address] [place], [address] AST [Catalytic activity/Vol] 61 U/L High <=37 [facility] Comment on above: Performed By: #### L 500.4050, L100.0100, L503.7505 ####[facility] [address] [place], [address] Bilirubin [Mass/Vol] 0.34 mg/dL Normal 0.00-1.30 [facility] Comment on above: Performed By: #### L 500.4050, L100.0100, L503.7505 ####[facility] [address] [place], [address] BUN/CRE 36.0 RATIO High 10-20 [facility] Comment on above: Performed By: #### L 500.4050, L100.0100, L503.7505 ####[facility] [address] [place], [address] Calcium [Mass/Vol] 9.1 mg/dL Normal 7.6-11.0 [facility] Comment on above: Performed By: #### L 500.4050, L100.0100, L503.7505 ####[facility] [address] [place], [address] Chloride [Moles/Vol] 102 mmol/L Normal 98-108 [facility] Comment on above: Performed By: #### L 500.4050, L100.0100, L503.7505 ####[facility] [address] [place], [address] CO2 [Moles/Vol] 22.7 mmol/L Normal 21.0-32.0 [facility] Comment on above: Performed By: #### L 500.4050, L100.0100, L503.7505 ####[facility] [address] [place], [address] Creatinine [Mass/Vol] 3.22 mg/dL High 0.70-1.20 [facility] Comment on above: Performed By: #### L 500.4050, L100.0100, L503.7505 ####[facility] [address] [place], [address] GAP 16 High 5-15 [facility] Comment on above: Performed By: #### L 500.4050, L100.0100, L503.7505 ####[facility] [address] [place], [address] GFR/1.73 sq M.predicted among non-blacks MDRD (S/P/Bld) [Vol rate/Area] 18 mL/min/{1.73_m2} Low >60 [facility] Comment on above: Result Comment: mL/m in/1.73m2 CKD-EPI Creatinine Equation (2020) Performed By: #### L 500.4050, L100.0100, L503.7505 ####[facility] [address] [place], [address] Globulin (S) [Mass/Vol] 2.7 g/dL Normal 2.2-4.2 [facility] Comment on above: Performed By: #### L 500.4050, L100.0100, L503.7505 ####[facility] [address] [place], [address] Glucose [Mass/Vol] 257 mg/dL High 70-99 [facility] Comment on above: Performed By: #### L 500.4050, L100.0100, L503.7505 ####[facility] [address] [place], [address] Potassium [Moles/Vol] 3.6 mmol/L Normal 3.3-5.1 [facility] Comment on above: Performed By: #### L 500.4050, L100.0100, L503.7505 ####[facility] [address] [place], [address] Sodium [Moles/Vol] 141 mmol/L Normal 133-145 [facility] Comment on above: Performed By: #### L 500.4050, L100.0100, L503.7505 ####[facility] [address] [place], [address] T PROT 6.6 g/dL Normal 5.9-8.4 [facility] Comment on above: Performed By: #### L 500.4050, L100.0100, L503.7505 ####[facility] [address] [place], [address] Urea nitrogen [Mass/Vol] 116 mg/dL Invalid Interpretation Code 06-28 [facility] Comment on above: Result Comment: Crit ical Result(s) Called at: 2129 by:??DR.C GARCIA Resultsread back by same. Performed By: #### L 500.4050, L100.0100, L503.7505 ####[facility] [address] [place], [place], [address] Eosinophil percentageOrdered By: Yuridia Hernandez on 06-30-2024 Eosinophils/100 WBC (Bld) 3.4 % 0-5 [facility] Erythrocyte distribution wid th ratioOrdered By: Yuridia Hernandez on 06-30-2024 Erythrocyte distribution width (RBC) [Ratio] 13.2 % 11.6-14.6 [facility] Erythrocyte distribution wid th standard deviationOrdered By: Yuridia Hernandez on 06-30-2024 Erythrocyte distribution width (RBC) [Ratio] 44.5 fl High 35.1-43.9 [facility] Glomerular filtration rate ( GFR) estimation/1.73 sq m using serum, plasma, or whole bOrdered By: Yuridia Hernandez on 06-30-2024 GFR/1.73 sq M.predicted among non-blacks MDRD (S/P/Bld) [Vol rate/Area] 18 mL/min/{1.73_m2} Low >60 [facility] Comment on above: mL/min/1.73m2 CKD-EP I Creatinine Equation (2020) Hematocrit Auto (Bld) [Volum e fraction]Ordered By: Yuridia Hernandez on 06-30-2024 Hematocrit (Bld) [Volume fraction] 29.6 % Low 40-54 [facility] Hemoglobin measurementOrdere d By: Yuridia Hernandez on 06-30-2024 Hemoglobin (Bld) [Mass/Vol] 10.0 g/dL Low 13.0-16.5 [facility] Immature granulocytes/100 WB C Auto (Bld)Ordered By: Yuridia Hernandez on 06-30-2024 Immature granulocytes/100 WBC (Bld) 0.500 % 0.0-0.9 [facility] Comment on above: IG% - Immature Granu locytes (promyelocytes, myelocytes and metamyelocytes) > 1% indicates that a LEFT SHIFT is Present. L503.7505on 06-30-2024 Natriuretic peptide B (Bld) [Mass/Vol] 3454 pg/mL High <=1800 [facility] Comment on above: Result Comment: Hear t Failure Unlikely: < 300 pg/mLHeart Failure Likely< 50 Years: > 450 pg/mL50-75 Years: > 900 pg/mL>75 Years: > 1800 pg/mL Performed By: #### L 500.4050, L100.0100, L503.7505 ####[facility] [address] [place], [place], [address] Laboratory - Chemistry and C hemistry - challengeOrdered By: Yuridia Hernandez on 06-30-2024 AST [Catalytic activity/Vol] 61 U/L High <38 [facility] MCV (mean corpuscular volume ) determinationOrdered By: Yuridia Hernandez on 06-30-2024 MCV (RBC) [Entitic vol] 92.8 fL 80-94 [facility] Mean corpuscular hemoglobin (MCH) determinationOrdered By: Yuridia Hernandez on 06-30-2024 MCH (RBC) [Entitic mass] 31.3 pg 27.0-32.0 [facility] Mean corpuscular hemoglobin concentration (MCHC) determinationOrdered By: Yuridia Hernandez on 06-30-2024 MCHC (RBC) [Mass/Vol] 33.8 g/dL 32-36 [facility] Mean platelet volume determi nationOrdered By: Yuridia Hernandez on 06-30-2024 Platelet mean volume (Bld) [Entitic vol] 11.1 fL 6.2-12.0 [facility] Monocyte percentageOrdered B y: Yuridia Hernandez on 06-30-2024 Monocytes/100 WBC (Bld) 7.5 % 0-10 [facility] Natriuretic peptide.B prohor chris N-Terminal [Mass/volume] in Serum or PlasmaOrdered By: Yuridia Hernandez on 06-30-2024 Natriuretic peptide.B prohormone N-Terminal [Mass/Vol] 3454 pg/mL High <1800 [facility] Comment on above: Heart Failure Unlike ly: < 300 pg/mLHeart Failure Likely< 50 Years: > 450 pg/mL50-75 Years: > 900 pg/mL>75 Years: > 1800 pg/mL Neutrophil percentageOrdered By: Yuridia Hernandez on 06-30-2024 Neutrophils/100 WBC (Bld) 75.3 % High 47-70 [facility] Nucleated red blood cell per centageOrdered By: Yuridia Hernandez on 06-30-2024 Nucleated RBC/100 WBC (Bld) [Ratio] 0 % 0-5 [facility] Platelet countOrdered By: Mike Hernandez on 06-30-2024 Platelets (Bld) [#/Vol] 174 10*3/uL 150-450 [facility] Potassium measurement (mass/ volume)Ordered By: Yuridia Hernandez on 06-30-2024 Potassium (Unsp spec) [Mass/Vol] 3.6 mmol/L 3.3-5.1 [facility] RBC Auto (Bld) [#/Vol]Ordere d By: Yuridia Hernandez on 06-30-2024 RBC (Bld) [#/Vol] 3.19 10*6/uL Low 4.6-6.2 [facility] Serum creatinine measurement (mass/volume)Ordered By: Yuridia Hernandez on 06-30-2024 Creatinine [Mass/Vol] 3.22 mg/dL High 0.70-1.20 [facility] Serum globulin measurementOr dered By: Yuridia Hernandez on 06-30-2024 Globulin (S) [Mass/Vol] 2.7 g/dL 2.2-4.2 [facility] Serum glucose measurement (m ass/volume)Ordered By: Yuridia Hernandez on 06-30-2024 Glucose [Mass/Vol] 257 mg/dL High 70-99 [facility] Serum or plasma alanine duque otransferase (ALT) measurementOrdered By: Yuridia Hernandez on 06-30-2024 ALT [Catalytic activity/Vol] 149 U/L High <47 [facility] Serum or plasma albumin elmira urement (mass/volume)Ordered By: Yuridia Hernandez on 06-30-2024 Albumin [Mass/Vol] 3.9 g/dL 3.4-4.8 [facility] Serum or plasma albumin/glob ulin mass ratioOrdered By: Yuridia Hernandez on 06-30-2024 Albumin/Globulin [Mass ratio] 1.5 {ratio} 0.9-2.4 [facility] Serum or plasma alkaline lissa sphatase measurementOrdered By: Yuridia Hernandez on 06-30-2024 ALP [Catalytic activity/Vol] 80 U/L 40-129 [facility] Serum or plasma calcium elmira urement (mass/volume)Ordered By: Yuridia Hernandez on 06-30-2024 Calcium [Mass/Vol] 9.1 mg/dL 7.6-11.0 [facility] Serum or plasma urea nitroge n measurement (mass/volume)Ordered By: Yuridia Hernandez on 06-30-2024 Urea nitrogen [Mass/Vol] 116 mg/dL High 06-28 [facility] Comment on above: Critical Result(s) C alled at: 2130 by: DR.C GARCIA Results read back by same. Sodium levelOrdered By: Yuridia Hernandez on 06-30-2024 Sodium [Moles/Vol] 141 mmol/L 133-145 [facility] Total proteinOrdered By: Cecilia Hernandez on 06-30-2024 Protein [Mass/Vol] 6.6 g/dL 5.9-8.4 [facility] White blood cell (WBC) count Ordered By: Yuridia Hernandez on 06-30-2024 WBC (Bld) [#/Vol] 15.7 10*3/uL High 4.4-11.0 [facility] Basic Metabolic Profile (BMP )on 06-29-2024 BUN Normal 06-28 [facility] Comment on above: Result Comment: Canc elled via OM: Order cancelled - Patient discharged Performed By: #### L 500.2500, L100.0100 ####[facility] [address] [place], [address] BUN/CRE Normal 12-29 [facility] Comment on above: Result Comment: Canc elled via OM: Order cancelled - Patient discharged Performed By: #### L 500.2500, L100.0100 ####[facility] [address] [place], [address] Calcium Normal 7.6-11.0 [facility] Comment on above: Result Comment: Canc elled via OM: Order cancelled - Patient discharged Performed By: #### L 500.2500, L100.0100 ####[facility] [address] [place], [address] CL Normal 98-108 [facility] Comment on above: Result Comment: Canc elled via OM: Order cancelled - Patient discharged Performed By: #### L 500.2500, L100.0100 ####[facility] [address] [place], [address] CO2 Normal 21.0-32.0 [facility] Comment on above: Result Comment: Canc elled via OM: Order cancelled - Patient discharged Performed By: #### L 500.2500, L100.0100 ####[facility] [address] [place], [address] CREAT,SERUM Normal 0.70-1.20 [facility] Comment on above: Result Comment: Canc elled via OM: Order cancelled - Patient discharged Performed By: #### L 500.2500, L100.0100 ####[facility] [address] [place], [address] eGFR Normal >60 [facility] Comment on above: Result Comment: Canc elled via OM: Order cancelled - Patient discharged Performed By: #### L 500.2500, L100.0100 ####[facility] [address] [place], [address] GAP Normal 5-15 [facility] Comment on above: Result Comment: Canc elled via OM: Order cancelled - Patient discharged Performed By: #### L 500.2500, L100.0100 ####[facility] [address] [place], [address] GLU Normal 70-99 [facility] Comment on above: Result Comment: Canc elled via OM: Order cancelled - Patient discharged Performed By: #### L 500.2500, L100.0100 ####[facility] [address] [place], [address] Potassium Normal 3.3-5.1 [facility] Comment on above: Result Comment: Canc elled via OM: Order cancelled - Patient discharged Performed By: #### L 500.2500, L100.0100 ####[facility] [address] [place], [address] Basic Metabolic Profile (BMP) Normal 133-145 [facility] Comment on above: Result Comment: Canc elled via OM: Order cancelled - Patient discharged Performed By: #### L 500.2500, L100.0100 ####[facility] [address] [place], [address] CBC W/Diff, Automatedon 04-2 0-2024 Absolute Neut Normal 2.0-7.7 [facility] Comment on above: Result Comment: Canc elled via OM: Order cancelled - Patient discharged Performed By: #### L 500.2500, L100.0100 ####[facility] [address] [place], [address] HCT Normal 40-54 [facility] Comment on above: Result Comment: Canc elled via OM: Order cancelled - Patient discharged Performed By: #### L 500.2500, L100.0100 ####[facility] [address] [place], [address] HGB Normal 13.0-16.5 [facility] Comment on above: Result Comment: Canc elled via OM: Order cancelled - Patient discharged Performed By: #### L 500.2500, L100.0100 ####[facility] [address] [place], [address] MCH Normal 27.0-32.0 [facility] Comment on above: Result Comment: Canc elled via OM: Order cancelled - Patient discharged Performed By: #### L 500.2500, L100.0100 ####[facility] [address] [place], [address] MCHC Normal 32-36 [facility] Comment on above: Result Comment: Canc elled via OM: Order cancelled - Patient discharged Performed By: #### L 500.2500, L100.0100 ####[facility] [address] [place], [address] MCV Normal 80-94 [facility] Comment on above: Result Comment: Canc elled via OM: Order cancelled - Patient discharged Performed By: #### L 500.2500, L100.0100 ####[facility] [address] [place], [address] NEUT% Normal 47-70 [facility] Comment on above: Result Comment: Canc elled via OM: Order cancelled - Patient discharged Performed By: #### L 500.2500, L100.0100 ####[facility] [address] [place], [address] PLT Normal 150-450 [facility] Comment on above: Result Comment: Canc elled via OM: Order cancelled - Patient discharged Performed By: #### L 500.2500, L100.0100 ####[facility] [address] [place], [address] RBC Normal 4.6-6.2 [facility] Comment on above: Result Comment: Canc elled via OM: Order cancelled - Patient discharged Performed By: #### L 500.2500, L100.0100 ####[facility] [address] [place], [address] RDW CV Normal 11.6-14.6 [facility] Comment on above: Result Comment: Canc elled via OM: Order cancelled - Patient discharged Performed By: #### L 500.2500, L100.0100 ####[facility] [address] [place], [address] RDW SD Normal 35.1-43.9 [facility] Comment on above: Result Comment: Canc elled via OM: Order cancelled - Patient discharged Performed By: #### L 500.2500, L100.0100 ####[facility] [address] [place], [address] WBC Normal 4.4-11.0 [facility] Comment on above: Result Comment: Canc elled via OM: Order cancelled - Patient discharged Performed By: #### L 500.2500, L100.0100 ####[facility] [address] [place], [address] Basic Metabolic Profile (BMP )on 06-28-2024 BUN Normal 4-19 [facility] Comment on above: Result Comment: Canc elled via OM: Order cancelled - Patient discharged Performed By: #### L 500.2500, L100.0100 ####[facility] [address] [place], [address] BUN/CRE Normal 10-20 [facility] Comment on above: Result Comment: Canc elled via OM: Order cancelled - Patient discharged Performed By: #### L 500.2500, L100.0100 ####[facility] [address] [place], [address] Calcium Normal 7.6-11.0 [facility] Comment on above: Result Comment: Canc elled via OM: Order cancelled - Patient discharged Performed By: #### L 500.2500, L100.0100 ####[facility] [address] [place], [address] CL Normal 98-108 [facility] Comment on above: Result Comment: Canc elled via OM: Order cancelled - Patient discharged Performed By: #### L 500.2500, L100.0100 ####[facility] [address] [place], [address] CO2 Normal 21.0-32.0 [facility] Comment on above: Result Comment: Canc elled via OM: Order cancelled - Patient discharged Performed By: #### L 500.2500, L100.0100 ####[facility] [address] [place], [address] CREAT,SERUM Normal 0.70-1.20 [facility] Comment on above: Result Comment: Canc elled via OM: Order cancelled - Patient discharged Performed By: #### L 500.2500, L100.0100 ####[facility] [address] [place], [address] eGFR Normal >60 [facility] Comment on above: Result Comment: Canc elled via OM: Order cancelled - Patient discharged Performed By: #### L 500.2500, L100.0100 ####[facility] [address] [place], [address] GAP Normal 5-15 [facility] Comment on above: Result Comment: Canc elled via OM: Order cancelled - Patient discharged Performed By: #### L 500.2500, L100.0100 ####[facility] [address] [place], [address] GLU Normal 70-99 [facility] Comment on above: Result Comment: Canc elled via OM: Order cancelled - Patient discharged Performed By: #### L 500.2500, L100.0100 ####[facility] [address] [place], [address] Potassium Normal 3.3-5.1 [facility] Comment on above: Result Comment: Canc elled via OM: Order cancelled - Patient discharged Performed By: #### L 500.2500, L100.0100 ####[facility] [address] [place], [address] Basic Metabolic Profile (BMP) Normal 133-145 [facility] Comment on above: Result Comment: Canc elled via OM: Order cancelled - Patient discharged Performed By: #### L 500.2500, L100.0100 ####[facility] [address] [place], [address] CBC W/Diff, Automatedon 04-1 Absolute Neut Normal 2.0-7.7 [facility] Comment on above: Result Comment: Canc elled via OM: Order cancelled - Patient discharged Performed By: #### L 500.2500, L100.0100 ####[facility] [address] [place], [address] HCT Normal 40-54 [facility] Comment on above: Result Comment: Canc elled via OM: Order cancelled - Patient discharged Performed By: #### L 500.2500, L100.0100 ####[facility] [address] [place], [address] HGB Normal 13.0-16.5 [facility] Comment on above: Result Comment: Canc elled via OM: Order cancelled - Patient discharged Performed By: #### L 500.2500, L100.0100 ####[facility] [address] [place], [address] MCH Normal 27.0-32.0 [facility] Comment on above: Result Comment: Canc elled via OM: Order cancelled - Patient discharged Performed By: #### L 500.2500, L100.0100 ####[facility] [address] [place], [address] MCHC Normal 32-36 [facility] Comment on above: Result Comment: Canc elled via OM: Order cancelled - Patient discharged Performed By: #### L 500.2500, L100.0100 ####[facility] [address] [place], [address] MCV Normal 80-94 [facility] Comment on above: Result Comment: Canc elled via OM: Order cancelled - Patient discharged Performed By: #### L 500.2500, L100.0100 ####[facility] [address] [place], [address] NEUT% Normal 47-70 [facility] Comment on above: Result Comment: Canc elled via OM: Order cancelled - Patient discharged Performed By: #### L 500.2500, L100.0100 ####[facility] [address] [place], [address] PLT Normal 150-450 [facility] Comment on above: Result Comment: Canc elled via OM: Order cancelled - Patient discharged Performed By: #### L 500.2500, L100.0100 ####[facility] [address] [place], [address] RBC Normal 4.6-6.2 [facility] Comment on above: Result Comment: Canc elled via OM: Order cancelled - Patient discharged Performed By: #### L 500.2500, L100.0100 ####[facility] [address] [place], [address] RDW CV Normal 11.6-14.6 [facility] Comment on above: Result Comment: Canc elled via OM: Order cancelled - Patient discharged Performed By: #### L 500.2500, L100.0100 ####[facility] [address] [place], [address] RDW SD Normal 35.1-43.9 [facility] Comment on above: Result Comment: Canc elled via OM: Order cancelled - Patient discharged Performed By: #### L 500.2500, L100.0100 ####[facility] [address] [place], [address] WBC Normal 4.4-11.0 [facility] Comment on above: Result Comment: Canc elled via OM: Order cancelled - Patient discharged Performed By: #### L 500.2500, L100.0100 ####[facility] [address] [place], [address] Basic Metabolic Profile (BMP )on 06-27-2024 BUN Normal 4-19 [facility] Comment on above: Result Comment: Canc elled via OM: Order cancelled - Patient discharged Performed By: #### L 500.2500, L100.0100 ####[facility] [address] [place], [address] BUN/CRE Normal 10-20 [facility] Comment on above: Result Comment: Canc elled via OM: Order cancelled - Patient discharged Performed By: #### L 500.2500, L100.0100 ####[facility] [address] [place], [address] Calcium Normal 7.6-11.0 [facility] Comment on above: Result Comment: Canc elled via OM: Order cancelled - Patient discharged Performed By: #### L 500.2500, L100.0100 ####[facility] [address] [place], [address] CL Normal 98-108 [facility] Comment on above: Result Comment: Canc elled via OM: Order cancelled - Patient discharged Performed By: #### L 500.2500, L100.0100 ####[facility] [address] [place], [address] CO2 Normal 21.0-32.0 [facility] Comment on above: Result Comment: Canc elled via OM: Order cancelled - Patient discharged Performed By: #### L 500.2500, L100.0100 ####[facility] [address] [place], [address] CREAT,SERUM Normal 0.70-1.20 [facility] Comment on above: Result Comment: Canc elled via OM: Order cancelled - Patient discharged Performed By: #### L 500.2500, L100.0100 ####[facility] [address] [place], [address] eGFR Normal >60 [facility] Comment on above: Result Comment: Canc elled via OM: Order cancelled - Patient discharged Performed By: #### L 500.2500, L100.0100 ####[facility] [address] [place], [address] GAP Normal 5-15 [facility] Comment on above: Result Comment: Canc elled via OM: Order cancelled - Patient discharged Performed By: #### L 500.2500, L100.0100 ####[facility] [address] [place], [address] GLU Normal 70-99 [facility] Comment on above: Result Comment: Canc elled via OM: Order cancelled - Patient discharged Performed By: #### L 500.2500, L100.0100 ####[facility] [address] [place], [address] Potassium Normal 3.3-5.1 [facility] Comment on above: Result Comment: Canc elled via OM: Order cancelled - Patient discharged Performed By: #### L 500.2500, L100.0100 ####[facility] [address] [place], [address] Basic Metabolic Profile (BMP) Normal 133-145 [facility] Comment on above: Result Comment: Canc elled via OM: Order cancelled - Patient discharged Performed By: #### L 500.2500, L100.0100 ####[facility] [address] [place], [address] CBC W/Diff, Automatedon 06-10 Absolute Neut Normal 2.0-7.7 [facility] Comment on above: Result Comment: Canc elled via OM: Order cancelled - Patient discharged Performed By: #### L 500.2500, L100.0100 ####[facility] [address] [place], [address] HCT Normal 40-54 [facility] Comment on above: Result Comment: Canc elled via OM: Order cancelled - Patient discharged Performed By: #### L 500.2500, L100.0100 ####[facility] [address] [place], [address] HGB Normal 13.0-16.5 [facility] Comment on above: Result Comment: Canc elled via OM: Order cancelled - Patient discharged Performed By: #### L 500.2500, L100.0100 ####[facility] [address] [place], [address] MCH Normal 27.0-32.0 [facility] Comment on above: Result Comment: Canc elled via OM: Order cancelled - Patient discharged Performed By: #### L 500.2500, L100.0100 ####[facility] [address] [place], [address] MCHC Normal 32-36 [facility] Comment on above: Result Comment: Canc elled via OM: Order cancelled - Patient discharged Performed By: #### L 500.2500, L100.0100 ####[facility] [address] [place], [address] MCV Normal 80-94 [facility] Comment on above: Result Comment: Canc elled via OM: Order cancelled - Patient discharged Performed By: #### L 500.2500, L100.0100 ####[facility] [address] [place], [address] NEUT% Normal 47-70 [facility] Comment on above: Result Comment: Canc elled via OM: Order cancelled - Patient discharged Performed By: #### L 500.2500, L100.0100 ####[facility] [address] [place], [address] PLT Normal 150-450 [facility] Comment on above: Result Comment: Canc elled via OM: Order cancelled - Patient discharged Performed By: #### L 500.2500, L100.0100 ####[facility] [address] [place], [address] RBC Normal 4.6-6.2 [facility] Comment on above: Result Comment: Canc elled via OM: Order cancelled - Patient discharged Performed By: #### L 500.2500, L100.0100 ####[facility] [address] [place], [address] RDW CV Normal 11.6-14.6 [facility] Comment on above: Result Comment: Canc elled via OM: Order cancelled - Patient discharged Performed By: #### L 500.2500, L100.0100 ####[facility] [address] [place], [address] RDW SD Normal 35.1-43.9 [facility] Comment on above: Result Comment: Canc elled via OM: Order cancelled - Patient discharged Performed By: #### L 500.2500, L100.0100 ####[facility] [address] [place], [address] WBC Normal 4.4-11.0 [facility] Comment on above: Result Comment: Canc elled via OM: Order cancelled - Patient discharged Performed By: #### L 500.2500, L100.0100 ####[facility] [address] [place], [address] Basic Metabolic Profile (BMP )on 06-26-2024 BUN Normal 4-19 [facility] Comment on above: Result Comment: Canc elled via OM: Order cancelled - Patient discharged Performed By: #### L 100.0100, L500.2500 ####[facility] [address] [place], [address] BUN/CRE Normal 10-20 [facility] Comment on above: Result Comment: Canc elled via OM: Order cancelled - Patient discharged Performed By: #### L 100.0100, L500.2500 ####[facility] [address] [place], [address] Calcium Normal 7.6-11.0 [facility] Comment on above: Result Comment: Canc elled via OM: Order cancelled - Patient discharged Performed By: #### L 100.0100, L500.2500 ####[facility] [address] [place], [address] CL Normal 98-108 [facility] Comment on above: Result Comment: Canc elled via OM: Order cancelled - Patient discharged Performed By: #### L 100.0100, L500.2500 ####[facility] [address] [place], [address] CO2 Normal 21.0-32.0 [facility] Comment on above: Result Comment: Canc elled via OM: Order cancelled - Patient discharged Performed By: #### L 100.0100, L500.2500 ####[facility] [address] [place], [address] CREAT,SERUM Normal 0.70-1.20 [facility] Comment on above: Result Comment: Canc elled via OM: Order cancelled - Patient discharged Performed By: #### L 100.0100, L500.2500 ####[facility] [address] [place], [address] eGFR Normal >60 [facility] Comment on above: Result Comment: Canc elled via OM: Order cancelled - Patient discharged Performed By: #### L 100.0100, L500.2500 ####[facility] [address] [place], [address] GAP Normal 5-15 [facility] Comment on above: Result Comment: Canc elled via OM: Order cancelled - Patient discharged Performed By: #### L 100.0100, L500.2500 ####[facility] [address] [place], [address] GLU Normal 70-99 [facility] Comment on above: Result Comment: Canc elled via OM: Order cancelled - Patient discharged Performed By: #### L 100.0100, L500.2500 ####[facility] [address] [place], [address] Potassium Normal 3.3-5.1 [facility] Comment on above: Result Comment: Canc elled via OM: Order cancelled - Patient discharged Performed By: #### L 100.0100, L500.2500 ####[facility] [address] [place], [address] Basic Metabolic Profile (BMP) Normal 133-145 [facility] Comment on above: Result Comment: Canc elled via OM: Order cancelled - Patient discharged Performed By: #### L 100.0100, L500.2500 ####[facility] [address] [place], [address] CBC W/Diff, Automatedon 04- Absolute Neut Normal 2.0-7.7 [facility] Comment on above: Result Comment: Canc elled via OM: Order cancelled - Patient discharged Performed By: #### L 100.0100, L500.2500 ####[facility] [address] [place], [address] HCT Normal 40-54 [facility] Comment on above: Result Comment: Canc elled via OM: Order cancelled - Patient discharged Performed By: #### L 100.0100, L500.2500 ####[facility] [address] [place], [address] HGB Normal 13.0-16.5 [facility] Comment on above: Result Comment: Canc elled via OM: Order cancelled - Patient discharged Performed By: #### L 100.0100, L500.2500 ####[facility] [address] [place], [address] MCH Normal 27.0-32.0 [facility] Comment on above: Result Comment: Canc elled via OM: Order cancelled - Patient discharged Performed By: #### L 100.0100, L500.2500 ####[facility] [address] [place], [address] MCHC Normal 32-36 [facility] Comment on above: Result Comment: Canc elled via OM: Order cancelled - Patient discharged Performed By: #### L 100.0100, L500.2500 ####[facility] [address] [place], [address] MCV Normal 80-94 [facility] Comment on above: Result Comment: Canc elled via OM: Order cancelled - Patient discharged Performed By: #### L 100.0100, L500.2500 ####[facility] [address] [place], [address] NEUT% Normal 47-70 [facility] Comment on above: Result Comment: Canc elled via OM: Order cancelled - Patient discharged Performed By: #### L 100.0100, L500.2500 ####[facility] [address] [place], [address] PLT Normal 150-450 [facility] Comment on above: Result Comment: Canc elled via OM: Order cancelled - Patient discharged Performed By: #### L 100.0100, L500.2500 ####[facility] [address] [place], [address] RBC Normal 4.6-6.2 [facility] Comment on above: Result Comment: Canc elled via OM: Order cancelled - Patient discharged Performed By: #### L 100.0100, L500.2500 ####[facility] [address] [place], [address] RDW CV Normal 11.6-14.6 [facility] Comment on above: Result Comment: Canc elled via OM: Order cancelled - Patient discharged Performed By: #### L 100.0100, L500.2500 ####[facility] [address] [place], [address] RDW SD Normal 35.1-43.9 [facility] Comment on above: Result Comment: Canc elled via OM: Order cancelled - Patient discharged Performed By: #### L 100.0100, L500.2500 ####[facility] [address] [place], [address] WBC Normal 4.4-11.0 [facility] Comment on above: Result Comment: Canc elled via OM: Order cancelled - Patient discharged Performed By: #### L 100.0100, L500.2500 ####[facility] [address] [place], [address] Absolute lymphocyte countOrd ered By: Sarai Alcantara on 06-25-2024 Lymphocytes Auto (Unsp spec) [#/Vol] 1.06 10*3/uL 0.83-4.51 [facility] Absolute neutrophil countOrd ered By: Sarai Alcantara on 06-25-2024 Neutrophils (Bld) [#/Vol] 7.0 10*3/uL 2.0-7.7 [facility] Anion gap in Serum or Plasma Ordered By: Sarai Alcantara on 06-25-2024 Anion gap [Moles/Vol] 14 mmol/L 5-15 [facility] Automated lymphocyte count a s percentage of total leukocytesOrdered By: Sarai Alcantara on 06-25-2024 Lymphocytes/100 WBC Auto (Unsp spec) 12.3 % Low 19-41 [facility] BUN/creatinine ratioOrdered By: Sarai Alcantara on 06-25-2024 Urea nitrogen/Creatinine [Mass ratio] 38.9 mg/mg High 10-20 [facility] Basic Metabolic Profile (BMP )on 06-25-2024 Urea nitrogen [Mass/Vol] 110 mg/dL Invalid Interpretation Code 4-19 [facility] Comment on above: Result Comment: Crit ical Result(s) Called at 0852: by:?? DIDIER DUENAS. Results read back by same.Critical Result(s) Called at: by:??Results read back bysame. AMENDED REPORT 06/25/24911 BUN previously reported as: 110 *H mg/dLCritical Result(s) Called at 0852: by:?? DIDIER DUENAS. Results read back by same. Performed By: #### L 500.2500, L100.0100 ####[facility] [address] [place], [address] Basophil percentageOrdered B y: Sarai Alcantara on 06-25-2024 Basophils/100 WBC (Bld) 0.1 % 0-1 [facility] Bedside Glucoseon 06-25-2024 FINGERSTICK GLU 237 mg/dL High 74-106 [facility] Comment on above: Result Comment: MYKE GEMENT OF PATIENT CARE PER NURSING PROTOCOL Performed By: #### L 501.080 ####[facility] [address] [place], [address] FINGERSTICK GLU 161 mg/dL High 74-106 [facility] Comment on above: Result Comment: MYKE GEMENT OF PATIENT CARE PER NURSING PROTOCOL Performed By: #### L 501.080 ####[facility] [address] [place], [address] FINGERSTICK GLU 118 mg/dL High 74-106 [facility] Comment on above: Result Comment: MYKE GEMENT OF PATIENT CARE PER NURSING PROTOCOL Performed By: #### L 501.080 ####[facility] [address] [place], [address] CBC W/Diff, Automatedon 04 Absolute Lymph 1.06 X10 3/uL Normal 0.83-4.51 [facility] Comment on above: Performed By: #### L 500.2500, L100.0100 ####[facility] [address] [place], [address] Absolute Neut 7.0 X10 3/uL Normal 2.0-7.7 [facility] Comment on above: Performed By: #### L 500.2500, L100.0100 ####[facility] [address] [place], [address] Basophils/100 WBC (Bld) 0.1 % Normal 0-1 [facility] Comment on above: Performed By: #### L 500.2500, L100.0100 ####[facility] [address] [place], [address] Eosinophils/100 WBC (Bld) 0.3 % Normal 0-5 [facility] Comment on above: Performed By: #### L 500.2500, L100.0100 ####[facility] [address] [place], [address] Erythrocyte distribution width (RBC) [Ratio] 13.7 % Normal 11.6-14.6 [facility] Comment on above: Performed By: #### L 500.2500, L100.0100 ####[facility] [address] [place], [address] Hematocrit (Bld) [Volume fraction] 23.4 % Low 40-54 [facility] Comment on above: Performed By: #### L 500.2500, L100.0100 ####[facility] [address] [place], [address] Hemoglobin (Bld) [Mass/Vol] 8.0 g/dL Low 13.0-16.5 [facility] Comment on above: Performed By: #### L 500.2500, L100.0100 ####[facility] [address] [place], [address] IG% 0.300 Normal 0.0-0.9 [facility] Comment on above: Result Comment: IG% - Immature Granulocytes (promyelocytes, myelocytes andmetamyelocytes) > 1% indicates that a LEFT SHIFT is Present. Performed By: #### L 500.2500, L100.0100 ####[facility] [address] [place], [address] Lymphocytes/100 WBC (Bld) 12.3 % Low 19-41 [facility] Comment on above: Performed By: #### L 500.2500, L100.0100 ####[facility] [address] [place], [address] MCH (RBC) [Entitic mass] 31.3 pg Normal 27.0-32.0 [facility] Comment on above: Performed By: #### L 500.2500, L100.0100 ####[facility] [address] [place], [address] MCHC (RBC) [Mass/Vol] 34.2 g/dL Normal 32-36 [facility] Comment on above: Performed By: #### L 500.2500, L100.0100 ####[facility] [address] [place], [address] MCV (RBC) [Entitic vol] 91.4 fL Normal 80-94 [facility] Comment on above: Performed By: #### L 500.2500, L100.0100 ####[facility] [address] [place], [address] Monocytes/100 WBC (Bld) 6.1 % Normal 0-10 [facility] Comment on above: Performed By: #### L 500.2500, L100.0100 ####[facility] [address] [place], [address] Neutrophils/100 WBC (Bld) 80.9 % High 47-70 [facility] Comment on above: Performed By: #### L 500.2500, L100.0100 ####[facility] [address] [place], [address] Nucleated RBC (Bld) [#/Vol] 0 10*3/uL Normal 0-5 [facility] Comment on above: Performed By: #### L 500.2500, L100.0100 ####[facility] [address] [place], [address] Platelet mean volume (Bld) [Entitic vol] 11.0 fL Normal 6.2-12.0 [facility] Comment on above: Performed By: #### L 500.2500, L100.0100 ####[facility] [address] [place], [address] Platelets (Bld) [#/Vol] 94 10*3/uL Low 150-450 [facility] Comment on above: Performed By: #### L 500.2500, L100.0100 ####[facility] [address] [place], [address] RBC (Bld) [#/Vol] 2.56 10*6/uL Low 4.6-6.2 [facility] Comment on above: Performed By: #### L 500.2500, L100.0100 ####[facility] [address] [place], [address] RDW SD 44.8 fl High 35.1-43.9 [facility] Comment on above: Performed By: #### L 500.2500, L100.0100 ####[facility] [address] [place], [address] WBC (Bld) [#/Vol] 8.6 10*3/uL Normal 4.4-11.0 [facility] Comment on above: Performed By: #### L 500.2500, L100.0100 ####[facility] [address] [place], [address] Carbon dioxide, total [Moles /volume] in Central venous bloodOrdered By: Sarai Alcantara on 06-25-2024 CO2 [Moles/Vol] 25.1 mmol/L 21.0-32.0 [facility] Chloride assayOrdered By: Na na Quinton on 06-25-2024 Chloride [Moles/Vol] 99 mmol/L 98-108 [facility] Discharge Instructionon 06-10 Discharge Instruction Normal [facility] Eosinophil percentageOrdered By: Sarai Alcantara on 06-25-2024 Eosinophils/100 WBC (Bld) 0.3 % 0-5 [facility] Erythrocyte distribution wid th (RBC) [Ratio]Ordered By: Sarai Alcantara on 06-25-2024 Erythrocyte distribution width (RBC) [Entitic vol] 44.8 fL High 35.1-43.9 [facility] Erythrocyte distribution wid th ratioOrdered By: Sarai Alcantara 06-25-2024 Erythrocyte distribution width (RBC) [Ratio] 13.7 % 11.6-14.6 [facility] Erythrocyte distribution wid th standard deviationOrdered By: Sarai Alcantara on 06-25-2024 Erythrocyte distribution width (RBC) [Ratio] 44.8 fl High 35.1-43.9 [facility] Estimation of creatinine timur aranceOrdered By: Sarai Alcantara on 06-25-2024 Estimated Creatinine Clearance Calc 18.84 ml/min Low 50-250 [facility] GFR/1.73 sq M.predicted kaveh g non-blacks MDRD (S/P/Bld) [Vol rate/Area]Ordered By: Sarai Alcantara on 06-25-2024 Estimated GFR (MDRD) Non-Af Amer 21 Low >60 [facility] Comment on above: mL/min/1.73m2 CKD-EP I Creatinine Equation (2020) Glomerular filtration rate ( GFR) estimation/1.73 sq m using serum, plasma, or whole bOrdered By: Sarai Alcantara on 06-25-2024 GFR/1.73 sq M.predicted among non-blacks MDRD (S/P/Bld) [Vol rate/Area] 21 mL/min/{1.73_m2} Low >60 [facility] [facility] Comment on above: mL/min/1.73m2 CKD-EP I Creatinine Equation (2020) [facility] deOrdered By: Sarai Alcantara on 06-25-2024 Bedside Glucose (Misc Panel) 237 mg/dL High 74-106 [facility] Comment on above: MANAGEMENT OF PATIEN T CARE PER NURSING PROTOCOL Glucose [Mass/Vol] 237 mg/dL High 74-106 [facility] Comment on above: MANAGEMENT OF PATIEN T CARE PER NURSING PROTOCOL Hematocrit Auto (Bld) [Volum e fraction]Ordered By: Sarai Alcantara on 06-25-2024 Hematocrit (Bld) [Volume fraction] 23.4 % Low 40-54 [facility] Hemoglobin measurementOrdere d By: Sarai Alcantara on 06-25-2024 Hemoglobin (Bld) [Mass/Vol] 8.0 g/dL Low 13.0-16.5 [facility] Immature granulocytes/100 WB C Auto (Bld)Ordered By: Sarai Alcantara on 06-25-2024 Immature granulocytes/100 WBC (Bld) 0.300 % 0.0-0.9 [facility] Comment on above: IG% - Immature Granu locytes (promyelocytes, myelocytes and metamyelocytes) > 1% indicates that a LEFT SHIFT is Present. Lymphocytes Auto (Unsp spec) [#/Vol]Ordered By: Sarai Alcantara on 06-25-2024 Lymphocytes (Bld) [#/Vol] 1.06 10*3/uL 0.83-4.51 [facility] Lymphocytes/100 WBC Auto (Un sp spec)Ordered By: Sarai Alcantara on 06-25-2024 Lymphocytes/100 WBC (Bld) 12.3 % Low 19-41 [facility] MCV (mean corpuscular volume ) determinationOrdered By: Sarai Alcantara on 06-25-2024 MCV (RBC) [Entitic vol] 91.4 fL 80-94 [facility] Mean corpuscular hemoglobin (MCH) determinationOrdered By: Sarai Alcantara on 06-25-2024 MCH (RBC) [Entitic mass] 31.3 pg 27.0-32.0 [facility] Mean corpuscular hemoglobin concentration (MCHC) determinationOrdered By: Sarai Alcantara on 06-25-2024 MCHC (RBC) [Mass/Vol] 34.2 g/dL 32-36 [facility] Mean platelet volume determi nationOrdered By: Sarai Alcantara on 06-25-2024 Platelet mean volume (Bld) [Entitic vol] 11.0 fL 6.2-12.0 [facility] Monocyte percentageOrdered B y: Sarai Alcantara on 06-25-2024 Monocytes/100 WBC (Bld) 6.1 % 0-10 [facility] Neutrophil percentageOrdered By: Sarai Alcantara on 06-25-2024 Neutrophils/100 WBC (Bld) 80.9 % High 47-70 [facility] Nucleated red blood cell per centageOrdered By: Sarai Alcantara on 06-25-2024 Nucleated RBC/100 WBC (Bld) [Ratio] 0 % 0-5 [facility] Platelet countOrdered By: Na bria Alcantara on 06-25-2024 Platelets (Bld) [#/Vol] 94 10*3/uL Low 150-450 [facility] Potassium (Unsp spec) [Mass/ Vol]Ordered By: Sarai Alcantara on 06-25-2024 Potassium [Moles/Vol] 4.4 mmol/L 3.3-5.1 [facility] Potassium measurement (mass/ volume)Ordered By: Sarai Alcantara on 06-25-2024 Potassium (Unsp spec) [Mass/Vol] 4.4 mmol/L 3.3-5.1 [facility] RBC Auto (Bld) [#/Vol]Ordere d By: Sarai Alcantara on 06-25-2024 RBC (Bld) [#/Vol] 2.56 10*6/uL Low 4.6-6.2 [facility] Serum creatinine measurement (mass/volume)Ordered By: Sarai Alcantara on 06-25-2024 Creatinine [Mass/Vol] 2.83 mg/dL High 0.70-1.20 [facility] Serum glucose measurement (m ass/volume)Ordered By: Sarai Alcantara on 06-25-2024 Glucose [Mass/Vol] 126 mg/dL High 70-99 [facility] Serum or plasma calcium elmira urement (mass/volume)Ordered By: Sarai Alcantara on 06-25-2024 Calcium [Mass/Vol] 9.3 mg/dL 7.6-11.0 [facility] Serum or plasma urea nitroge n measurement (mass/volume)Ordered By: Sarai Alcantara on 06-25-2024 Urea nitrogen [Mass/Vol] 110 mg/dL High 4-19 [facility] Comment on above: Critical Result(s) C alled at 0852: by: [facility]IER [facility] Results read back by same. Critical Result(s) Called at: by: Results read back by same.Previous reported result: 110 mg/dLEdited by: VICKY on 06/25/24:0912 AMENDED REPORT 06/25/24 09 BUN previously reported as: 110 *H mg/dL Critical Result(s) Called at 0852: by: DIDIER [facility]. Results read back by same. Sodium levelOrdered By: Sarai Alcantara on 06-25-2024 Sodium [Moles/Vol] 138 mmol/L 133-145 [facility] White blood cell (WBC) count Ordered By: Sarai Alcantara on 06-25-2024 WBC (Bld) [#/Vol] 8.6 10*3/uL 4.4-11.0 [facility] Bedside Glucoseon 06-24-2024 FINGERSTICK GLU 128 mg/dL High 74-106 [facility] Comment on above: Result Comment: MYKE GEMENT OF PATIENT CARE PER NURSING PROTOCOL Performed By: #### L 501.080 ####[facility] [address] [facility] [address] FINGERSTICK GLU 184 mg/dL High 74-106 [facility] Comment on above: Result Comment: MYKE GEMENT OF PATIENT CARE PER NURSING PROTOCOL Performed By: #### L 501.080 ####[facility] [address] [place], [address] FINGERSTICK GLU 276 mg/dL High 74-106 [facility] Comment on above: Result Comment: MYKE GEMENT OF PATIENT CARE PER NURSING PROTOCOL Performed By: #### L 501.080 ####[facility] [address] [place], [address] FINGERSTICK GLU 172 mg/dL High 74-106 [facility] Comment on above: Result Comment: MYKE SAGE OF PATIENT CARE PER NURSING PROTOCOL Performed By: #### L 501.080 ####[facility] [address] [place], [address] Bilirubin, totalOrdered By: Tracy Angel on 06-24-2024 Bilirubin [Mass/Vol] 0.32 mg/dL 0.00-1.30 [facility] Blood polychromasia detectio n by light microscopyOrdered By: Tracy Angel on 06-24-2024 Polychromasia LM Ql (Bld) 1+ [facility] CBC W/Diff, Automatedon 06-10 OVALOCYTE 1+ Normal [facility] Comment on above: Performed By: #### L 100.0100, L500.4100, L500.4050 ####[facility] [address] [place], [address] PLT EST MOD DEC Normal ADEQ [facility] Comment on above: Performed By: #### L 100.0100, L500.4100, L500.4050 ####[facility] [address] [place], [address] POLYCHROMASIA 1+ Normal [facility] Comment on above: Performed By: #### L 100.0100, L500.4100, L500.4050 ####[facility] [address] [place], [address] Calculated very low density lipoprotein (VLDL) cholesterol measurementOrdered By: Tracy Angel on 06-24-2024 Calculated very low density lipoprotein (VLDL) cholesterol measurement 21 mg/dL 5-40 [facility] VLDL Cholesterol 21 mg/dL 5-40 [facility] Comprehensive Metabolic Prof ilon 06-24-2024 Albumin [Mass/Vol] 4.0 g/dL Normal 3.4-4.8 [facility] Comment on above: Performed By: #### L 100.0100, L500.4100, L500.4050 ####[facility] [address] [place], [address] Albumin/Globulin [Mass ratio] 1.4 {ratio} Normal 0.9-2.4 [facility] Comment on above: Performed By: #### L 100.0100, L500.4100, L500.4050 ####[facility] [address] [place], [address] ALK PHOS 71 U/L Normal 40-129 [facility] Comment on above: Performed By: #### L 100.0100, L500.4100, L500.4050 ####[facility] [address] [place], [address] ALT [Catalytic activity/Vol] 31 U/L Normal <=46 [facility] Comment on above: Performed By: #### L 100.0100, L500.4100, L500.4050 ####[facility] [address] [place], [address] AST [Catalytic activity/Vol] 18 U/L Normal <=37 [facility] Comment on above: Performed By: #### L 100.0100, L500.4100, L500.4050 ####[facility] [address] [place], [address] Bilirubin [Mass/Vol] 0.32 mg/dL Normal 0.00-1.30 [facility] Comment on above: Performed By: #### L 100.0100, L500.4100, L500.4050 ####[facility] [address] [place], [address] BUN/CRE 36.8 RATIO High 10-20 [facility] Comment on above: Performed By: #### L 100.0100, L500.4100, L500.4050 ####[facility] [address] [place], [address] Calcium [Mass/Vol] 9.5 mg/dL Normal 7.6-11.0 [facility] Comment on above: Performed By: #### L 100.0100, L500.4100, L500.4050 ####[facility] [address] [place], [address] Chloride [Moles/Vol] 101 mmol/L Normal 98-108 [facility] Comment on above: Performed By: #### L 100.0100, L500.4100, L500.4050 ####[facility] [address] [place], [address] CO2 [Moles/Vol] 24.8 mmol/L Normal 21.0-32.0 [facility] Comment on above: Performed By: #### L 100.0100, L500.4100, L500.4050 ####[facility] [address] [place], [address] Creatinine [Mass/Vol] 2.57 mg/dL High 0.70-1.20 [facility] Comment on above: Performed By: #### L 100.0100, L500.4100, L500.4050 ####[facility] [address] [place], [address] ECRCL 20.74 ml/min Low 50-250 [facility] Comment on above: Performed By: #### L 100.0100, L500.4100, L500.4050 ####[facility] [address] [place], [address] GAP 14 Normal 5-15 [facility] Comment on above: Performed By: #### L 100.0100, L500.4100, L500.4050 ####[facility] [address] [place], [address] GFR/1.73 sq M.predicted among non-blacks MDRD (S/P/Bld) [Vol rate/Area] 24 mL/min/{1.73_m2} Low >60 [facility] Comment on above: Result Comment: mL/m in/1.73m2 CKD-EPI Creatinine Equation (2020) Performed By: #### L 100.0100, L500.4100, L500.4050 ####[facility] [address] [place], [address] Globulin (S) [Mass/Vol] 2.9 g/dL Normal 2.2-4.2 [facility] Comment on above: Performed By: #### L 100.0100, L500.4100, L500.4050 ####[facility] [address] [place], [address] Glucose [Mass/Vol] 170 mg/dL High 70-99 [facility] Comment on above: Performed By: #### L 100.0100, L500.4100, L500.4050 ####[facility] [address] [place], [address] Potassium [Moles/Vol] 4.6 mmol/L Normal 3.3-5.1 [facility] Comment on above: Performed By: #### L 100.0100, L500.4100, L500.4050 ####[facility] [address] [place], [address] Sodium [Moles/Vol] 140 mmol/L Normal 133-145 [facility] Comment on above: Performed By: #### L 100.0100, L500.4100, L500.4050 ####[facility] [address] [place], [address] T PROT 6.9 g/dL Normal 5.9-8.4 [facility] Comment on above: Performed By: #### L 100.0100, L500.4100, L500.4050 ####[facility] [address] [place], [address] Urea nitrogen [Mass/Vol] 95 mg/dL High 06-28 [facility] Comment on above: Performed By: #### L 100.0100, L500.4100, L500.4050 ####[facility] [address] [place], [address] Electrocardiogram reportOrde red By: Trell Kendrick on 06-24-2024 EKG study [facility] [address] [place] [address] 12 Lead EKG 06/23/24 1437 MR#: [id number] Acct: [id number] Name: BEULAH BRIGHT Rep #:[id number] : 1940 84 From: Trell lopez MD Attending Dr: Dr. Sarai Alcantara MD Status: ADM IN Ordering Dr: Delia Tai Date: 06/23/24 Location: [facility] Sex: M C Admitted: 06/23/24 Test Reason : SOB Blood Pressure : */* mmHG Vent. Rate : 100 BPM Atrial Rate : 100 BPM P-R Int : 226 ms QRS Dur : 88 ms QT Int : 342 ms P-R-T Axes : 57 -2 69 degrees QTcB Int : 441 ms Sinus rhythm with 1st degree A-V block Nonspecific ST and T wave abnormality Abnormal ECG Confirmed by Trell Kendrick ([id number]), movie editor ZACKARY MARTINEZ ([id number]) on :28:21 AM Referred By: TEETEE Confirmed By: Trell Kendrick 06/24/24 1128 Date _ Trell Kendrick MD CC: Dr. aSrai Alcantara MD; Dr. Yuridia Hernandez MD; MIKE Calhoun ~ Signed [facility] Work Phone: LDL calc ser/plasOrdered By: Tracy Angel on 06-24-2024 Cholesterol in LDL [Mass/Vol] 92 mg/dL [facility] Comment on above: Wlbzhzapaq=101-226 m g/dL & Higher Tnso=968 mg/dL or greater LDL Cholesterol, Calculated 92 mg/dL [facility] Comment on above: Fgkecwnyae=851-569 m g/dL & Higher Egvr=993 mg/dL or greater Laboratory - Chemistry and C hemistry - challengeOrdered By: Tracy Angel on 06-24-2024 AST [Catalytic activity/Vol] 18 U/L <38 [facility] Lipid Profileon 06-24-2024 CHOL:HDL 4.12 Normal [facility] Comment on above: Performed By: #### L 100.0100, L500.4100, L500.4050 ####[facility] [address] [place], [address] Cholesterol [Mass/Vol] 149 mg/dL Normal <=200 [facility] Comment on above: Result Comment: Chol esterol level, Desirable <200 mg/dLBorderline high cholesterol 200-239 mg/dLHigh cholesterol >=240 mg/dLRecommendations of the NCEP Adult Treatment Panel for thefollowing risk-cutoff thresholds for the [place] [facility] [place]. Performed By: #### L 100.0100, L500.4100, L500.4050 ####[facility] [address] [place], [address] Cholesterol in HDL [Mass/Vol] 36 mg/dL Low [facility] Comment on above: Result Comment: Marit[place] onal Cholesterol Education Program (NCEP) guidelines:<40 mg/dL: Low HDL-cholesterol (major risk factor for CHD)>= 60 mg/dL: High HDL-cholesterol (negative risk factor forCHD)HDL-cholesterol is affected by a number of factors, e.g.smoking, exercise, hormones, sex and age. Performed By: #### L 100.0100, L500.4100, L500.4050 ####[facility] [address] [place], [address] Cholesterol in LDL [Mass/Vol] 92 mg/dL Normal [facility] Comment on above: Result Comment: Bord ofaiaw=692-736 mg/dL Higher Xrgf=060 mg/dL or greater Performed By: #### L 100.0100, L500.4100, L500.4050 ####[facility] [address] [place], [address] Cholesterol in VLDL [Mass/Vol] 21 mg/dL Normal 5-40 [facility] Comment on above: Performed By: #### L 100.0100, L500.4100, L500.4050 ####[facility] [address] [place], [address] Triglyceride [Mass/Vol] 106 mg/dL Normal [facility] Comment on above: Result Comment: The drugs N-Acetylcysteine and Metamizole may falselydepress this assay.Normal range: <150 mg/dLBorderline High: 150-199 mg/dLHigh: 200-499 mg/dLVery High: >500 mg/dL Performed By: #### L 100.0100, L500.4100, L500.4050 ####[facility] [address] [place], [address] Ovalocyte detectionOrdered B y: White on 06-24-2024 Ovalocytes LM Ql (Bld) 1+ [facility] Ovalocytes LM Ql (Bld)Ordere d By: White on 06-24-2024 Ovalocytes 1+ [facility] Platelet estimateOrdered By: White on 06-24-2024 Platelets LM Ql (Bld) MOD DEC ADEQ [facility] Platelets LM Ql (Bld)Ordered By: White on 06-24-2024 Platelet Estimate MOD DEC ADEQ [facility] Polychromasia LM Ql (Bld)Ord ered By: White on 06-24-2024 Polychromasia 1+ [facility] RESPIRATORY PANEL MOLECULARo n 06-24-2024 RP PANEL Normal [facility] Comment on above: Performed By: #### M 100.638 ####[facility] [address] [place], [address] Screening total cholesterol/ high density lipoprotein (HDL) cholesterol ratioOrdered By: Tracy Stanley on 06-24-2024 Cholesterol.total/Choles terol in HDL [Mass ratio] 4.12 {ratio} [facility] Serum globulin measurementOr dered By: [facility] 06-24-2024 Globulin (S) [Mass/Vol] 2.9 g/dL 2.2-4.2 [facility] Serum or plasma alanine duque otransferase (ALT) measurementOrdered By: [facility] 06-24-2024 ALT [Catalytic activity/Vol] 31 U/L <47 [facility] Serum or plasma albumin elmira urement (mass/volume)Ordered By: [facility] 06-24-2024 Albumin [Mass/Vol] 4.0 g/dL 3.4-4.8 [facility] Serum or plasma albumin/glob ulin mass ratioOrdered By: [facility] 06-24-2024 Albumin/Globulin [Mass ratio] 1.4 {ratio} 0.9-2.4 [facility] Serum or plasma alkaline lissa sphatase measurementOrdered By: [facility] 06-24-2024 ALP [Catalytic activity/Vol] 71 U/L 40-129 [facility] Serum or plasma cholesterol in HDL measurement (mass/volume)Ordered By: [facility] 06-24-2024 Cholesterol in HDL [Mass/Vol] 36 mg/dL Low >40 [facility] Comment on above: National Cholesterol Education Program (NCEP) guidelines:<40 mg/dL: Low HDL-cholesterol (major risk factor for CHD)>= 60 mg/dL: High HDL-cholesterol (negative risk factor for CHD)HDL-cholesterol is affected by a number of factors, e.g. smoking, exercise, hormones, sex and age. Serum or plasma cholesterol measurement (mass/volume)Ordered By: Tracy Stanley 06-24-2024 Cholesterol [Mass/Vol] 149 mg/dL <201 [facility] Comment on above: Cholesterol level, D esirable <200 mg/dLBorderline high cholesterol 200-239 mg/dLHigh cholesterol >=240 mg/dLRecommendations of the NCEP Adult Treatment Panel for the following risk-cutoff thresholds for the [place] population. Total proteinOrdered By: Raine harper Stanley on 06-24-2024 Protein [Mass/Vol] 6.9 g/dL 5.9-8.4 [facility] Triglycerides measurementOrd ered By: Tracy Stanley on 06-24-2024 Triglyceride [Mass/Vol] 106 mg/dL <199 [facility] Comment on above: The drugs N-Acetylcy steine and Metamizole may falsely depress this assay. Normal range: <150 mg/dLBorderline High: 150-199 mg/dLHigh: 200-499 mg/dLVery High: >500 mg/dL 12 Lead EKGon 06-23-2024 12 Lead EKG Normal [facility] Absolute neutrophil countOrd ered By: Delia Tai on 06-23-2024 Neutrophils (Bld) [#/Vol] 4.2 10*3/uL 2.0-7.7 [facility] Anion gap in Serum or Plasma Ordered By: Delia Tai on 06-23-2024 Anion gap [Moles/Vol] 13 mmol/L 07-24 [facility] BUN/creatinine ratioOrdered By: Delia Tai on 06-23-2024 Urea nitrogen/Creatinine [Mass ratio] 36.4 mg/mg High 12-29 [facility] Basic Metabolic Profile (BMP )on 06-23-2024 BUN/CRE 36.4 RATIO High 12-29 [facility] Comment on above: Performed By: #### L 503.7505, L100.0100, L500.2500 ####[facility] [address] [place], [address] Calcium [Mass/Vol] 9.3 mg/dL Normal 7.6-11.0 [facility] Comment on above: Performed By: #### L 503.7505, L100.0100, L500.2500 ####[facility] [address] [place], [address] Chloride [Moles/Vol] 103 mmol/L Normal 98-108 [facility] Comment on above: Performed By: #### L 503.7505, L100.0100, L500.2500 ####[facility] [address] [place], [address] CO2 [Moles/Vol] 25.6 mmol/L Normal 21.0-32.0 [facility] Comment on above: Performed By: #### L 503.7505, L100.0100, L500.2500 ####[facility] [address] [place], [address] Creatinine [Mass/Vol] 2.36 mg/dL High 0.70-1.20 [facility] Comment on above: Performed By: #### L 503.7505, L100.0100, L500.2500 ####[facility] [address] [place], [address] ECRCL 22.61 ml/min Low 50-250 [facility] Comment on above: Performed By: #### L 503.7505, L100.0100, L500.2500 ####[facility] [address] [place], [address] GAP 13 Normal 5-15 [facility] Comment on above: Performed By: #### L 503.7505, L100.0100, L500.2500 ####[facility] [address] [place], [address] GFR/1.73 sq M.predicted among non-blacks MDRD (S/P/Bld) [Vol rate/Area] 26 mL/min/{1.73_m2} Low >60 [facility] Comment on above: Result Comment: mL/m in/1.73m2 CKD-EPI Creatinine Equation (2020) Performed By: #### L 503.7505, L100.0100, L500.2500 ####[facility] [address] [place], [address] Glucose [Mass/Vol] 200 mg/dL High 70-99 [facility] Comment on above: Performed By: #### L 503.7505, L100.0100, L500.2500 ####[facility] [address] [place], [address] Potassium [Moles/Vol] 4.3 mmol/L Normal 3.3-5.1 [facility] Comment on above: Performed By: #### L 503.7505, L100.0100, L500.2500 ####[facility] [address] [place], [address] Sodium [Moles/Vol] 142 mmol/L Normal 133-145 [facility] Comment on above: Performed By: #### L 503.7505, L100.0100, L500.2500 ####[facility] [address] [place], [address] Urea nitrogen [Mass/Vol] 86 mg/dL High 4-19 [facility] Comment on above: Performed By: #### L 503.7505, L100.0100, L500.2500 ####[facility] [address] [place], [address] Basophil percentageOrdered B y: Delialeobardo Tai on 06-23-2024 Basophils/100 WBC (Bld) 0.5 % 0-1 [facility] Bedside Glucoseon 06-23-2024 FINGERSTICK GLU 205 mg/dL High 74-106 [facility] Comment on above: Result Comment: MYKE SAGE OF PATIENT CARE PER NURSING PROTOCOL Performed By: #### L 501.080 ####[facility] [address] [place], [address] CBC W/Diff, Automatedon 06-10 Absolute Lymph 1.05 X10 3/uL Normal 0.83-4.51 [facility] Comment on above: Performed By: #### L 503.7505, L100.0100, L500.2500 ####[facility] [address] [place], [address] Absolute Neut 4.2 X10 3/uL Normal 2.0-7.7 [facility] Comment on above: Performed By: #### L 503.7505, L100.0100, L500.2500 ####[facility] [address] [place], [address] Basophils/100 WBC (Bld) 0.5 % Normal 0-1 [facility] Comment on above: Performed By: #### L 503.7505, L100.0100, L500.2500 ####[facility] [address] [place], [address] Eosinophils/100 WBC (Bld) 3.5 % Normal 0-5 [facility] Comment on above: Performed By: #### L 503.7505, L100.0100, L500.2500 ####[facility] [address] [place], [address] Erythrocyte distribution width (RBC) [Ratio] 13.2 % Normal 11.6-14.6 [facility] Comment on above: Performed By: #### L 503.7505, L100.0100, L500.2500 ####[facility] [address] [place], [address] Hematocrit (Bld) [Volume fraction] 27.0 % Low 40-54 [facility] Comment on above: Performed By: #### L 503.7505, L100.0100, L500.2500 ####[facility] [address] [place], [address] Hemoglobin (Bld) [Mass/Vol] 8.5 g/dL Low 13.0-16.5 [facility] Comment on above: Performed By: #### L 503.7505, L100.0100, L500.2500 ####[facility] [address] [place], [address] IG% 0.300 Normal 0.0-0.9 [facility] Comment on above: Result Comment: IG% - Immature Granulocytes (promyelocytes, myelocytes andmetamyelocytes) > 1% indicates that a LEFT SHIFT is Present. Performed By: #### L 503.7505, L100.0100, L500.2500 ####[facility] [address] [place], [address] Lymphocytes/100 WBC (Bld) 17.7 % Low 19-41 [facility] Comment on above: Performed By: #### L 503.7505, L100.0100, L500.2500 ####[facility] [address] [place], [address] MCH (RBC) [Entitic mass] 29.9 pg Normal 27.0-32.0 [facility] Comment on above: Performed By: #### L 503.7505, L100.0100, L500.2500 ####[facility] [address] [place], [address] MCHC (RBC) [Mass/Vol] 31.5 g/dL Low 32-36 [facility] Comment on above: Performed By: #### L 503.7505, L100.0100, L500.2500 ####[facility] [address] [place], [address] MCV (RBC) [Entitic vol] 95.1 fL High 80-94 [facility] Comment on above: Performed By: #### L 503.7505, L100.0100, L500.2500 ####[facility] [address] [place], [address] Monocytes/100 WBC (Bld) 6.6 % Normal 0-10 [facility] Comment on above: Performed By: #### L 503.7505, L100.0100, L500.2500 ####[facility] [address] [place], [address] Neutrophils/100 WBC (Bld) 71.4 % High 47-70 [facility] Comment on above: Performed By: #### L 503.7505, L100.0100, L500.2500 ####[facility] [address] [place], [address] Nucleated RBC (Bld) [#/Vol] 0 10*3/uL Normal 0-5 [facility] Comment on above: Performed By: #### L 503.7505, L100.0100, L500.2500 ####[facility] [address] [place], [address] Platelet mean volume (Bld) [Entitic vol] 10.5 fL Normal 6.2-12.0 [facility] Comment on above: Performed By: #### L 503.7505, L100.0100, L500.2500 ####[facility] [address] [place], [address] Platelets (Bld) [#/Vol] 101 10*3/uL Low 150-450 [facility] Comment on above: Performed By: #### L 503.7505, L100.0100, L500.2500 ####[facility] [address] [place], [address] RBC (Bld) [#/Vol] 2.84 10*6/uL Low 4.6-6.2 [facility] Comment on above: Performed By: #### L 503.7505, L100.0100, L500.2500 ####[facility] [address] [place], [address] RDW SD 45.3 fl High 35.1-43.9 [facility] Comment on above: Performed By: #### L 503.7505, L100.0100, L500.2500 ####[facility] [address] [place], [address] WBC (Bld) [#/Vol] 5.9 10*3/uL Normal 4.4-11.0 [facility] Comment on above: Performed By: #### L 503.9523, L100.0100, L500.2500 ####[facility] [address] [place], [address] Carbon dioxide, total [Moles /volume] in Central venous bloodOrdered By: Delia Tai on 06-23-2024 CO2 [Moles/Vol] 25.6 mmol/L 21.0-32.0 [facility] Chest 1 View (Portable)on Chest 1 View (Portable) Normal [facility] Chloride assayOrdered By: Suzan Tai on 06-23-2024 Chloride [Moles/Vol] 103 mmol/L 98-108 [facility] Emergency Department Summary on 06-23-2024 Emergency Department Summary Normal [facility] Eosinophil percentageOrdered By: Delia Tai on 06-23-2024 Eosinophils/100 WBC (Bld) 3.5 % 0-5 [facility] Erythrocyte distribution wid th (RBC) [Ratio]Ordered By: Delia Tai on 06-23-2024 Erythrocyte distribution width (RBC) [Entitic vol] 45.3 fL High 35.1-43.9 [facility] Erythrocyte distribution wid th ratioOrdered By: Delia Tai on 06-23-2024 Erythrocyte distribution width (RBC) [Ratio] 13.2 % 11.6-14.6 [facility] Estimation of creatinine timur aranceOrdered By: Delia Tai on 06-23-2024 Estimated Creatinine Clearance Calc 22.61 ml/min Low 50-250 [facility] GFR/1.73 sq M.predicted kaveh g non-blacks MDRD (S/P/Bld) [Vol rate/Area]Ordered By: Delia Tai on 06-23-2024 Estimated GFR (MDRD) Non-Af Amer 26 Low >60 [facility] Comment on above: mL/min/1.73m2 CKD-EP I Creatinine Equation (2020) H AND P Exam - [facility] 04-14-2025 H&P Exam - Hospitalist Normal [facility] Hematocrit Auto (Bld) [Volum e fraction]Ordered By: Delialeobardo Tai on 06-23-2024 Hematocrit (Bld) [Volume fraction] 27.0 % Low 40-54 [facility] Hemoglobin measurementOrdere d By: Delia Abida on 06-23-2024 Hemoglobin (Bld) [Mass/Vol] 8.5 g/dL Low 13.0-16.5 [facility] Immature granulocytes/100 WB C Auto (Bld)Ordered By: Delia Tai on 06-23-2024 Immature granulocytes/100 WBC (Bld) 0.300 % 0.0-0.9 [facility] Comment on above: IG% - Immature Granu locytes (promyelocytes, myelocytes and metamyelocytes) > 1% indicates that a LEFT SHIFT is Present. Influenza virus A and B and SARS-CoV-2 (COVID-19) and Respiratory syncytial virus RNAOrdered By: Delia Tai on 06-23-2024 SARS-CoV-2 (COVID-19) RNA JOSH+probe Ql (Unsp spec) [facility] L499.0042on 06-23-2024 Trop T High Sen 83 ng/L Invalid Interpretation Code <=22 [facility] Comment on above: Result Comment: Crit ical Result(s) Called ESMART at: 1805 by:ZOYA??Results read back by same. Performed By: #### L 499.0042 ####[facility] [address] [place], [address] L499.0043on 06-23-2024 Trop T High Sen 71 ng/L Invalid Interpretation Code <=22 [facility] Comment on above: Result Comment: Crit ical Result(s) Called AFLICKINGER at: 2157 by:ZOYA??Results read back by same. Performed By: #### L 499.0043 ####[facility] [address] [place], [address] L501.4021on 06-23-2024 Trop T High Sen 83 ng/L Invalid Interpretation Code <=22 [facility] Comment on above: Result Comment: Crit ical Result(s) Called ACOLE at: 1617 by:ZOYA??Results read back by same. Performed By: #### L 501.4021 ####[facility] [address] [place], [address] L503.7505on 06-23-2024 Natriuretic peptide B (Bld) [Mass/Vol] 2233 pg/mL High <=1800 [facility] Comment on above: Result Comment: Hear t Failure Unlikely: < 300 pg/mLHeart Failure Likely< 50 Years: > 450 pg/mL50-75 Years: > 900 pg/mL>75 Years: > 1800 pg/mL Performed By: #### L 503.7505, L100.0100, L500.2500 ####[facility] [address] [place], [address] L509.7001on 06-23-2024 Procalcitonin 0.12 ng/mL High <=0.10 [facility] Comment on above: Result Comment: Inte rpretation:<0.10-0.25 ng/mL: Antibiotic therapy discouraged. Bacterialinfection unlikely.0.25-0.50 ng/mL: Antibiotic therapy encouraged. Bacterialinfection possible.>0.50 ng/mL: Antibiotic therapy strongly encouraged.Suggestive of presence of bacterial infection.PCT should always be interpreted in the clinical context ofthe patient. Therefore, clinicians should use the PCTresults in conjunction with other laboratory findings andclinical signs of the patient. Performed By: #### L 509.7001 ####[facility] [address] [place], [address] Lymphocytes Auto (Unsp spec) [#/Vol]Ordered By: Delia Tai on 06-23-2024 Lymphocytes (Bld) [#/Vol] 1.05 10*3/uL 0.83-4.51 [facility] Lymphocytes/100 WBC Auto (Un sp spec)Ordered By: Delia Tai on 06-23-2024 Lymphocytes/100 WBC (Bld) 17.7 % Low 19-41 [facility] M100.678on 06-23-2024 M100.678 Pending SARS-CoV-2 (COVID 19) Negative INFLUENZA A Negative INFLUENZA B Negative RSV PCR Negative Normal [facility] Comment on above: Performed By: #### M 100.678 ####[facility] [address] [place], [address] M8200.1000on 06-23-2024 M8200.1000 Normal Reference Ran ge = Negative MRSA DNA Nose Ql JOSH+probe GeneXpert Instrument, PCR method MRSA PCR MRSA NEGATIVE Normal [facility] Comment on above: Performed By: #### M 8200.1000 ####[facility] [address] [place], [address] MCV (mean corpuscular volume ) determinationOrdered By: Delia Tai on 06-23-2024 MCV (RBC) [Entitic vol] 95.1 fL High 80-94 [facility] MRSA DNA JOSH+probe Ql (Nose) Ordered By: Tracy Angel on 06-23-2024 MRSA (PCR) [facility] Magnesiumon 06-23-2024 Magnesium [Mass/Vol] 2.0 mg/dL Normal 1.5-2.2 [facility] Comment on above: Order Comment: Comme nts: may add to ED labs Performed By: #### L 501.5200 ####[facility] [address] [place], [address] Magnesium (Unsp spec) [Mass/ Vol]Ordered By: Tracy Angel on 06-23-2024 Magnesium [Mass/Vol] 2.0 mg/dL 1.5-2.2 [facility] Magnesium measurement (mass/ volume)Ordered By: Tracy Angel on 06-23-2024 Magnesium (Unsp spec) [Mass/Vol] 2.0 mg/dL 1.5-2.2 [facility] Mean corpuscular hemoglobin (MCH) determinationOrdered By: Delia Tai on 06-23-2024 MCH (RBC) [Entitic mass] 29.9 pg 27.0-32.0 [facility] Mean corpuscular hemoglobin concentration (MCHC) determinationOrdered By: Delia Tai on 06-23-2024 MCHC (RBC) [Mass/Vol] 31.5 g/dL Low 32-36 [facility] Mean platelet volume determi nationOrdered By: Delia Tai on 06-23-2024 Platelet mean volume (Bld) [Entitic vol] 10.5 fL 6.2-12.0 [facility] Monocyte percentageOrdered B y: Delia Tai on 06-23-2024 Monocytes/100 WBC (Bld) 6.6 % 0-10 [facility] Nasal methicillin resistant Staphylococcus aureus (MRSA) DNA detection by PCROrdered By: Tracy Angel on 06-23-2024 MRSA DNA JOSH+probe Ql (Nose) [facility] Natriuretic peptide.B prohor chris N-Terminal [Mass/Vol]Ordered By: Delia Tai on 06-23-2024 Natriuretic peptide B (Bld) [Mass/Vol] 2233 pg/mL High <1800 [facility] Comment on above: Heart Failure Unlike ly: < 300 pg/mLHeart Failure Likely< 50 Years: > 450 pg/mL50-75 Years: > 900 pg/mL>75 Years: > 1800 pg/mL Natriuretic peptide.B prohor chris N-Terminal [Mass/volume] in Serum or PlasmaOrdered By: Delia Tai on 06-23-2024 Natriuretic peptide.B prohormone N-Terminal [Mass/Vol] 2233 pg/mL High <1800 [facility] Comment on above: Heart Failure Unlike ly: < 300 pg/mLHeart Failure Likely< 50 Years: > 450 pg/mL50-75 Years: > 900 pg/mL>75 Years: > 1800 pg/mL Neutrophil percentageOrdered By: Delia Tai on 06-23-2024 Neutrophils/100 WBC (Bld) 71.4 % High 47-70 [facility] Nucleated red blood cell per centageOrdered By: Delia Tai on 06-23-2024 Nucleated RBC/100 WBC (Bld) [Ratio] 0 % 0-5 [facility] Platelet countOrdered By: Suzan Tai on 06-23-2024 Platelets (Bld) [#/Vol] 101 10*3/uL Low 150-450 [facility] Potassium (Unsp spec) [Mass/ Vol]Ordered By: Delia Tai on 06-23-2024 Potassium [Moles/Vol] 4.3 mmol/L 3.3-5.1 [facility] Procalcitonin IA [Mass/Vol]O rdered By: Tracy Angel on 06-23-2024 Procalcitonin 0.12 ng/mL High <0.11 [facility] Comment on above: Interpretation:<0.10 -0.25 ng/mL: Antibiotic therapy discouraged. Bacterial infection unlikely.0.25-0.50 ng/mL: Antibiotic therapy encouraged. Bacterial infection possible.>0.50 ng/mL: Antibiotic therapy strongly encouraged. Suggestive of presence of bacterial infection.PCT should always be interpreted in the clinical context of the patient. Therefore, clinicians should use the PCT results in conjunction with other laboratory findings and clinical signs of the patient. Procalcitonin [Mass/volume] in Serum or Plasma by ImmunoassayOrdered By: Tracy Angel on 06-23-2024 Procalcitonin IA [Mass/Vol] 0.12 ng/mL High <0.11 [facility] Comment on above: Interpretation:<0.10 -0.25 ng/mL: Antibiotic therapy discouraged. Bacterial infection unlikely.0.25-0.50 ng/mL: Antibiotic therapy encouraged. Bacterial infection possible.>0.50 ng/mL: Antibiotic therapy strongly encouraged. Suggestive of presence of bacterial infection.PCT should always be interpreted in the clinical context of the patient. Therefore, clinicians should use the PCT results in conjunction with other laboratory findings and clinical signs of the patient. RBC Auto (Bld) [#/Vol]Ordere d By: Delia Tai on 06-23-2024 RBC (Bld) [#/Vol] 2.84 10*6/uL Low 4.6-6.2 [facility] Respiratory pathogens DNA an d RNA panel JOSH+probe (Resp)Ordered By: Tracy Angel on 06-23-2024 Respiratory Panel (PCR) [facility] Respiratory pathogens detect ion panel by molecular detection methodOrdered By: Tracy Angel on 06-23-2024 Respiratory pathogens DNA and RNA panel JOSH+probe (Resp) [facility] Serum creatinine measurement (mass/volume)Ordered By: Delia Tai on 06-23-2024 Creatinine [Mass/Vol] 2.36 mg/dL High 0.70-1.20 [facility] Serum glucose measurement (m ass/volume)Ordered By: Delia Tai on 06-23-2024 Glucose [Mass/Vol] 200 mg/dL High 70-99 [facility] Serum or plasma calcium elmira urement (mass/volume)Ordered By: Delia Tai on 06-23-2024 Calcium [Mass/Vol] 9.3 mg/dL 7.6-11.0 [facility] Serum or plasma urea nitroge n measurement (mass/volume)Ordered By: Delia Tai on 06-23-2024 Urea nitrogen [Mass/Vol] 86 mg/dL High 4-19 [facility] Sodium levelOrdered By: Delia Tai on 06-23-2024 Sodium [Moles/Vol] 142 mmol/L 133-145 [facility] Troponin T.cardiac High sens itivity method [Mass/Vol]Ordered By: Delia Tai on 06-23-2024 Troponin T High Sensitivity 4 Hour 71 ng/L High <22 [facility] Comment on above: Critical Result(s) C alled AFLICKINGER at: 2157 by: BWORKMAN Results read back by same. Troponin T High Sensitivity 2 Hour 83 ng/L High <22 [facility] Comment on above: Critical Result(s) C alled ESMART at: 1805 by: BWORKMAN Results read back by same. Troponin T High Sensitivity 83 ng/L High <22 [facility] Comment on above: Critical Result(s) C alled ACOLE at: 1617 by: BWORKMAN Results read back by same. Troponin T.cardiac [Mass/vol ume] in Serum or Plasma by High sensitivity methodOrdered By: Delia Tai on 06-23-2024 Troponin T.cardiac High sensitivity method [Mass/Vol] 71 ng/L High <22 [facility] Comment on above: Critical Result(s) C alled AFLICKINGER at: 2157 by: BWORKMAN Results read back by same. Troponin T.cardiac High sensitivity method [Mass/Vol] 83 ng/L High <22 [facility] Comment on above: Critical Result(s) C alled ESMART at: 1805 by: ZOYA Results read back by same. Troponin T.cardiac High sensitivity method [Mass/Vol] 83 ng/L High <22 [facility] Comment on above: Critical Result(s) C soha ACOLE at: 1617 by: ZOYA Results read back by same. White blood cell (WBC) count Ordered By: Delia Tai on 06-23-2024 WBC (Bld) [#/Vol] 5.9 10*3/uL 4.4-11.0 [facility] Absolute lymphocyte countOrd ered By: Dublin Gerald on 05-28-2024 Lymphocytes Auto (Unsp spec) [#/Vol] 1.74 10*3/uL 0.83-4.51 [facility] Absolute neutrophil countOrd ered By: Andre Duarte on 05-28-2024 Neutrophils (Bld) [#/Vol] 4.4 10*3/uL 2.0-7.7 [facility] Anion gap in Serum or Plasma Ordered By: Andre Duarte on 05-28-2024 Anion gap [Moles/Vol] 14 mmol/L 5-15 [facility] Automated lymphocyte count a s percentage of total leukocytesOrdered By: Andre Duarte on 05-28-2024 Lymphocytes/100 WBC Auto (Unsp spec) 24.2 % 19-41 [facility] BUN/creatinine ratioOrdered By: Andre Duarte on 05-28-2024 Urea nitrogen/Creatinine [Mass ratio] 31.3 mg/mg High 10-20 [facility] Basophil percentageOrdered B y: Andre Duarte on 05-28-2024 Basophils/100 WBC (Bld) 0.6 % 0-1 [facility] Bilirubin, totalOrdered By: Andre Duarte on 05-28-2024 Bilirubin [Mass/Vol] 0.21 mg/dL 0.00-1.30 [facility] CBC W/Diff, Automatedon 05-10 Absolute Lymph 1.74 X10 3/uL Normal 0.83-4.51 [facility] Comment on above: Performed By: #### L 100.0100, L504.2610, L100.9950, L503.6550, L500.4050, L503.6030 ####[facility] [address] [place], [address] Absolute Neut 4.4 X10 3/uL Normal 2.0-7.7 [facility] Comment on above: Performed By: #### L 100.0100, L504.2610, L100.9950, L503.6550, L500.4050, L503.6030 ####[facility] [address] [place], [address] Basophils/100 WBC (Bld) 0.6 % Normal 0-1 [facility] Comment on above: Performed By: #### L 100.0100, L504.2610, L100.9950, L503.6550, L500.4050, L503.6030 ####[facility] [address] [place], [address] Eosinophils/100 WBC (Bld) 5.0 % Normal 0-5 [facility] Comment on above: Performed By: #### L 100.0100, L504.2610, L100.9950, L503.6550, L500.4050, L503.6030 ####[facility] [address] [place], [address] Erythrocyte distribution width (RBC) [Ratio] 11.9 % Normal 11.6-14.6 [facility] Comment on above: Performed By: #### L 100.0100, L504.2610, L100.9950, L503.6550, L500.4050, L503.6030 ####[facility] [address] [place], [address] Hematocrit (Bld) [Volume fraction] 30.5 % Low 40-54 [facility] Comment on above: Performed By: #### L 100.0100, L504.2610, L100.9950, L503.6550, L500.4050, L503.6030 ####[facility] [address] [place], [address] Hemoglobin (Bld) [Mass/Vol] 9.9 g/dL Low 13.0-16.5 [facility] Comment on above: Performed By: #### L 100.0100, L504.2610, L100.9950, L503.6550, L500.4050, L503.6030 ####[facility] [address] [place], [address] IG% 0.300 Normal 0.0-0.9 [facility] Comment on above: Result Comment: IG% - Immature Granulocytes (promyelocytes, myelocytes andmetamyelocytes) > 1% indicates that a LEFT SHIFT is Present. Performed By: #### L 100.0100, L504.2610, L100.9950, L503.6550, L500.4050, L503.6030 ####[facility] [address] [place], [address] Lymphocytes/100 WBC (Bld) 24.2 % Normal 19-41 [facility] Comment on above: Performed By: #### L 100.0100, L504.2610, L100.9950, L503.6550, L500.4050, L503.6030 ####[facility] [address] [place], [address] MCH (RBC) [Entitic mass] 30.7 pg Normal 27.0-32.0 [facility] Comment on above: Performed By: #### L 100.0100, L504.2610, L100.9950, L503.6550, L500.4050, L503.6030 ####[facility] [address] [place], [address] MCHC (RBC) [Mass/Vol] 32.5 g/dL Normal 32-36 [facility] Comment on above: Performed By: #### L 100.0100, L504.2610, L100.9950, L503.6550, L500.4050, L503.6030 ####[facility] [address] [place], [address] MCV (RBC) [Entitic vol] 94.4 fL High 80-94 [facility] Comment on above: Performed By: #### L 100.0100, L504.2610, L100.9950, L503.6550, L500.4050, L503.6030 ####[facility] [address] [place], [address] Monocytes/100 WBC (Bld) 8.2 % Normal 0-10 [facility] Comment on above: Performed By: #### L 100.0100, L504.2610, L100.9950, L503.6550, L500.4050, L503.6030 ####[facility] [address] [place], [address] Neutrophils/100 WBC (Bld) 61.7 % Normal 47-70 [facility] Comment on above: Performed By: #### L 100.0100, L504.2610, L100.9950, L503.6550, L500.4050, L503.6030 ####[facility] [address] [place], [address] Nucleated RBC (Bld) [#/Vol] 0 10*3/uL Normal 0-5 [facility] Comment on above: Performed By: #### L 100.0100, L504.2610, L100.9950, L503.6550, L500.4050, L503.6030 ####[facility] [address] [place], [address] Platelet mean volume (Bld) [Entitic vol] 10.8 fL Normal 6.2-12.0 [facility] Comment on above: Performed By: #### L 100.0100, L504.2610, L100.9950, L503.6550, L500.4050, L503.6030 ####[facility] [address] [place], [address] Platelets (Bld) [#/Vol] 128 10*3/uL Low 150-450 [facility] Comment on above: Performed By: #### L 100.0100, L504.2610, L100.9950, L503.6550, L500.4050, L503.6030 ####[facility] [address] [place], [address] RBC (Bld) [#/Vol] 3.23 10*6/uL Low 4.6-6.2 [facility] Comment on above: Performed By: #### L 100.0100, L504.2610, L100.9950, L503.6550, L500.4050, L503.6030 ####[facility] [address] [place], [address] RDW SD 41.4 fl Normal 35.1-43.9 [facility] Comment on above: Performed By: #### L 100.0100, L504.2610, L100.9950, L503.6550, L500.4050, L503.6030 ####[facility] [address] [place], [address] WBC (Bld) [#/Vol] 7.2 10*3/uL Normal 4.4-11.0 [facility] Comment on above: Performed By: #### L 100.0100, L504.2610, L100.9950, L503.6550, L500.4050, L503.6030 ####[facility] [address] [place], [address] Calculated total iron bindin g capacityOrdered By: Andre Duarte on 05-28-2024 Total Iron Binding Capacity 268 ug/dL 250-450 [facility] Carbon dioxide, total [Moles /volume] in Central venous bloodOrdered By: Andre Duarte on 05-28-2024 CO2 [Moles/Vol] 23.6 mmol/L 21.0-32.0 [facility] Chloride assayOrdered By: Anabell Duarte on 05-28-2024 Chloride [Moles/Vol] 105 mmol/L 98-108 [facility] Comprehensive Metabolic Prof ilon 05-28-2024 Albumin [Mass/Vol] 4.1 g/dL Normal 3.4-4.8 [facility] Comment on above: Performed By: #### L 100.0100, L504.2610, L100.9950, L503.6550, L500.4050, L503.6030 ####[facility] [address] [place], [address] Albumin/Globulin [Mass ratio] 1.3 {ratio} Normal 0.9-2.4 [facility] Comment on above: Performed By: #### L 100.0100, L504.2610, L100.9950, L503.6550, L500.4050, L503.6030 ####[facility] [address] [place], [address] ALK PHOS 67 U/L Normal 40-129 [facility] Comment on above: Performed By: #### L 100.0100, L504.2610, L100.9950, L503.6550, L500.4050, L503.6030 ####[facility] [address] [place], [address] ALT [Catalytic activity/Vol] 17 U/L Normal <=46 [facility] Comment on above: Performed By: #### L 100.0100, L504.2610, L100.9950, L503.6550, L500.4050, L503.6030 ####[facility] [address] [place], [address] AST [Catalytic activity/Vol] 16 U/L Normal <=37 [facility] Comment on above: Performed By: #### L 100.0100, L504.2610, L100.9950, L503.6550, L500.4050, L503.6030 ####[facility] [address] [place], [address] Bilirubin [Mass/Vol] 0.21 mg/dL Normal 0.00-1.30 [facility] Comment on above: Performed By: #### L 100.0100, L504.2610, L100.9950, L503.6550, L500.4050, L503.6030 ####[facility] [address] [place], [address] BUN/CRE 31.3 RATIO High 10-20 [facility] Comment on above: Performed By: #### L 100.0100, L504.2610, L100.9950, L503.6550, L500.4050, L503.6030 ####[facility] [address] [place], [address] Calcium [Mass/Vol] 9.7 mg/dL Normal 7.6-11.0 [facility] Comment on above: Performed By: #### L 100.0100, L504.2610, L100.9950, L503.6550, L500.4050, L503.6030 ####[facility] [address] [place], [address] Chloride [Moles/Vol] 105 mmol/L Normal 98-108 [facility] Comment on above: Performed By: #### L 100.0100, L504.2610, L100.9950, L503.6550, L500.4050, L503.6030 ####[facility] [address] [place], [address] CO2 [Moles/Vol] 23.6 mmol/L Normal 21.0-32.0 [facility] Comment on above: Performed By: #### L 100.0100, L504.2610, L100.9950, L503.6550, L500.4050, L503.6030 ####[facility] [address] [place], [address] Creatinine [Mass/Vol] 3.09 mg/dL High 0.70-1.20 [facility] Comment on above: Performed By: #### L 100.0100, L504.2610, L100.9950, L503.6550, L500.4050, L503.6030 ####[facility] [address] [place], [address] ECRCL 17.24 ml/min Low 50-250 [facility] Comment on above: Performed By: #### L 100.0100, L504.2610, L100.9950, L503.6550, L500.4050, L503.6030 ####[facility] [address] [place], [address] GAP 14 Normal 5-15 [facility] Comment on above: Performed By: #### L 100.0100, L504.2610, L100.9950, L503.6550, L500.4050, L503.6030 ####[facility] [address] [place], [address] GFR/1.73 sq M.predicted among non-blacks MDRD (S/P/Bld) [Vol rate/Area] 19 mL/min/{1.73_m2} Low >60 [facility] Comment on above: Result Comment: mL/m in/1.73m2 CKD-EPI Creatinine Equation (2020) Performed By: #### L 100.0100, L504.2610, L100.9950, L503.6550, L500.4050, L503.6030 ####[facility] [address] [place], [address] Globulin (S) [Mass/Vol] 3.2 g/dL Normal 2.2-4.2 [facility] Comment on above: Performed By: #### L 100.0100, L504.2610, L100.9950, L503.6550, L500.4050, L503.6030 ####[facility] [address] [place], [address] Glucose [Mass/Vol] 70 mg/dL Normal 70-99 [facility] Comment on above: Performed By: #### L 100.0100, L504.2610, L100.9950, L503.6550, L500.4050, L503.6030 ####[facility] [address] [place], [address] Potassium [Moles/Vol] 4.7 mmol/L Normal 3.3-5.1 [facility] Comment on above: Performed By: #### L 100.0100, L504.2610, L100.9950, L503.6550, L500.4050, L503.6030 ####[facility] [address] [place], [address] Sodium [Moles/Vol] 143 mmol/L Normal 133-145 [facility] Comment on above: Performed By: #### L 100.0100, L504.2610, L100.9950, L503.6550, L500.4050, L503.6030 ####[facility] [address] [place], [address] T PROT 7.2 g/dL Normal 5.9-8.4 [facility] Comment on above: Performed By: #### L 100.0100, L504.2610, L100.9950, L503.6550, L500.4050, L503.6030 ####[facility] [address] [place], [address] Urea nitrogen [Mass/Vol] 97 mg/dL High 4-19 [facility] Comment on above: Performed By: #### L 100.0100, L504.2610, L100.9950, L503.6550, L500.4050, L503.6030 ####[facility] [address], [address] Eosinophil percentageOrdered By: Andre Duarte on 05-28-2024 Eosinophils/100 WBC (Bld) 5.0 % 0-5 [facility] Erythrocyte distribution wid th (RBC) [Ratio]Ordered By: Andre Gerald on 05-28-2024 Erythrocyte distribution width (RBC) [Entitic vol] 41.4 fL 35.1-43.9 [facility] Erythrocyte distribution wid th ratioOrdered By: [facility] on 05-28-2024 Erythrocyte distribution width (RBC) [Ratio] 11.9 % 11.6-14.6 [facility] Erythrocyte distribution wid th standard deviationOrdered By: [facility] on 05-28-2024 Erythrocyte distribution width (RBC) [Ratio] 41.4 fl 35.1-43.9 [facility] Estimation of creatinine timur aranceOrdered By: Andre Duarte on 05-28-2024 Estimated Creatinine Clearance Calc 17.24 ml/min Low 50-250 [facility] Ferritinon 05-28-2024 Ferritin [Mass/Vol] 55 ng/mL Normal 37-417 [facility] Comment on above: Performed By: #### L 100.0100, L504.2610, L100.9950, L503.6550, L500.4050, L503.6030 ####[facility] [address] [place], [address] GFR/1.73 sq M.predicted kaveh g non-blacks MDRD (S/P/Bld) [Vol rate/Area]Ordered By: Andre Duarte on 05-28-2024 Estimated GFR (MDRD) Non-Af Amer 19 Low >60 [facility] Comment on above: mL/min/1.73m2 CKD-EP I Creatinine Equation (2020) Glomerular filtration rate ( GFR) estimation/1.73 sq m using serum, plasma, or whole bOrdered By: Andre Duarte on 05-28-2024 GFR/1.73 sq M.predicted among non-blacks MDRD (S/P/Bld) [Vol rate/Area] 19 mL/min/{1.73_m2} Low >60 [facility] Comment on above: mL/min/1.73m2 CKD-EP I Creatinine Equation (2020) Hematocrit Auto (Bld) [Volum e fraction]Ordered By: Andre Duarte on 05-28-2024 Hematocrit (Bld) [Volume fraction] 30.5 % Low 40-54 [facility] Hemoglobin (Reticulocytes) [ Entitic mass]Ordered By: Andre Duarte on 05-28-2024 Reticulocyte Hemoglobin Equivalent 33.4 pg 30-35 [facility] Hemoglobin measurementOrdere d By: Andre Duarte on 05-28-2024 Hemoglobin (Bld) [Mass/Vol] 9.9 g/dL Low 13.0-16.5 [facility] Immature granulocytes/100 WB C Auto (Bld)Ordered By: Andre Duarte on 05-28-2024 Immature granulocytes/100 WBC (Bld) 0.300 % 0.0-0.9 [facility] Comment on above: IG% - Immature Granu locytes (promyelocytes, myelocytes and metamyelocytes) > 1% indicates that a LEFT SHIFT is Present. Immature reticulocyte fracti onOrdered By: Andre Duarte on 05-28-2024 Immature Reticulocyte Fraction 8.10 % 3.00-15.90 [facility] Iron (Unsp spec) [Mass/Mass] Ordered By: Andre Duarte on 05-28-2024 Iron [Mass/Vol] 69 ug/dL 65-175 [facility] Iron measurement (mass/mass) Ordered By: Andre Duarte on 05-28-2024 Iron (Unsp spec) [Mass/Mass] 69 ug/dL 65-175 [facility] Iron saturation [Mass fracti on]Ordered By: Andre Duarte on 05-28-2024 Iron Saturation 26.0 % 9-55 [facility] Iron+Iron Binding Capacityon 05-28-2024 Iron [Mass/Vol] 69 ug/dL Normal 65-175 [facility] Comment on above: Performed By: #### L 100.0100, L504.2610, L100.9950, L503.6550, L500.4050, L503.6030 ####[facility] [address] [place], [address] IRON SATURATION 26.0 Normal 9-55 [facility] Comment on above: Performed By: #### L 100.0100, L504.2610, L100.9950, L503.6550, L500.4050, L503.6030 ####[facility] [address] [place], [address] TIBC 268 ug/dL Normal 250-450 [facility] Comment on above: Performed By: #### L 100.0100, L504.2610, L100.9950, L503.6550, L500.4050, L503.6030 ####[facility] [address] [place], [address] UIBC 199 ug/dL Low 228-428 [facility] Comment on above: Performed By: #### L 100.0100, L504.2610, L100.9950, L503.6550, L500.4050, L503.6030 ####[facility] [address] [place], [address] LDHon 05-28-2024 LDH 153 U/L Normal 87-241 [facility] Comment on above: Order Comment: 1 Performed By: #### L 100.0100, L504.2610, L100.9950, L503.6550, L500.4050, L503.6030 ####[facility] [address] [place], [address] Laboratory - Chemistry and C hemistry - challengeOrdered By: Andre Duarte on 05-28-2024 AST [Catalytic activity/Vol] 16 U/L <38 [facility] Lactate dehydrogenase (LDH) measurementOrdered By: Andre Duarte on 05-28-2024 LDH [Catalytic activity/Vol] 153 U/L 87-241 [facility] Lymphocytes Auto (Unsp spec) [#/Vol]Ordered By: Andre Duarte on 05-28-2024 Lymphocytes (Bld) [#/Vol] 1.74 10*3/uL 0.83-4.51 [facility] Lymphocytes/100 WBC Auto (Un sp spec)Ordered By: Andre Duarte on 05-28-2024 Lymphocytes/100 WBC (Bld) 24.2 % 19-41 [facility] MCV (mean corpuscular volume ) determinationOrdered By: Andre Duarte on 05-28-2024 MCV (RBC) [Entitic vol] 94.4 fL High 80-94 [facility] Mean corpuscular hemoglobin (MCH) determinationOrdered By: Andre Duarte on 05-28-2024 MCH (RBC) [Entitic mass] 30.7 pg 27.0-32.0 [facility] Mean corpuscular hemoglobin concentration (MCHC) determinationOrdered By: Andre Duarte on 05-28-2024 MCHC (RBC) [Mass/Vol] 32.5 g/dL 32-36 [facility] Mean platelet volume determi nationOrdered By: Andre Duarte on 05-28-2024 Platelet mean volume (Bld) [Entitic vol] 10.8 fL 6.2-12.0 [facility] Monocyte percentageOrdered B y: Andre Duarte on 05-28-2024 Monocytes/100 WBC (Bld) 8.2 % 0-10 [facility] Neutrophil percentageOrdered By: Andre Duarte on 05-28-2024 Neutrophils/100 WBC (Bld) 61.7 % 47-70 [facility] No Panel InformationOrdered By: Andre Duarte on 05-28-2024 Unsaturated Iron Binding Capacity 199 ug/dL Low 228-428 [facility] Nucleated red blood cell per centageOrdered By: Andre Duarte on 05-28-2024 Nucleated RBC/100 WBC (Bld) [Ratio] 0 % 0-5 [facility] Oncology Visit Reporton 05-10 Oncology Visit Report Normal [facility] Platelet countOrdered By: Anabell Duarte on 05-28-2024 Platelets (Bld) [#/Vol] 128 10*3/uL Low 150-450 [facility] Potassium (Unsp spec) [Mass/ Vol]Ordered By: Andre Duarte on 05-28-2024 Potassium [Moles/Vol] 4.7 mmol/L 3.3-5.1 [facility] Potassium measurement (mass/ volume)Ordered By: Andre Duarte on 05-28-2024 Potassium (Unsp spec) [Mass/Vol] 4.7 mmol/L 3.3-5.1 [facility] RBC Auto (Bld) [#/Vol]Ordere d By: Andre Duarte on 05-28-2024 RBC (Bld) [#/Vol] 3.23 10*6/uL Low 4.6-6.2 [facility] Retic Panelon 05-28-2024 IM RET FRACTION 8.10 Normal 3.00-15.90 [facility] Comment on above: Performed By: #### L 100.0100, L504.2610, L100.9950, L503.6550, L500.4050, L503.6030 ####[facility] [address] [place], [address] RET-HE 33.4 pg Normal 30-35 [facility] Comment on above: Performed By: #### L 100.0100, L504.2610, L100.9950, L503.6550, L500.4050, L503.6030 ####[facility] [address] [place], [address] Retic Count 1.39 Normal 0.5-1.5 [facility] Comment on above: Performed By: #### L 100.0100, L504.2610, L100.9950, L503.6550, L500.4050, L503.6030 ####[facility] [address] [place], [address] Reticulocyte hemoglobin equi valent (RET-He) measurementOrdered By: Andre Duarte on 05-28-2024 Hemoglobin (Reticulocytes) [Entitic mass] 33.4 pg 30-35 [facility] Reticulocytes Auto (Bld) [#/ Vol]Ordered By: Andre Duarte on 05-28-2024 Reticulocyte Count 1.39 % 0.5-1.5 [facility] Reticulocytes/100 RBC (Bld) 1.39 % 0.5-1.5 [facility] Serum creatinine measurement (mass/volume)Ordered By: Andre Duarte on 05-28-2024 Creatinine [Mass/Vol] 3.09 mg/dL High 0.70-1.20 [facility] Serum globulin measurementOr dered By: Andre Duarte on 05-28-2024 Globulin (S) [Mass/Vol] 3.2 g/dL 2.2-4.2 [facility] Serum glucose measurement (m ass/volume)Ordered By: Andre Duarte on 05-28-2024 Glucose [Mass/Vol] 70 mg/dL 70-99 [facility] Serum or plasma alanine duque otransferase (ALT) measurementOrdered By: Andre Duarte on 05-28-2024 ALT [Catalytic activity/Vol] 17 U/L <47 [facility] Serum or plasma albumin elmira urement (mass/volume)Ordered By: Andre Duarte on 05-28-2024 Albumin [Mass/Vol] 4.1 g/dL 3.4-4.8 [facility] Serum or plasma albumin/glob ulin mass ratioOrdered By: Andre Duarte on 05-28-2024 Albumin/Globulin [Mass ratio] 1.3 {ratio} 0.9-2.4 [facility] Serum or plasma alkaline lissa sphatase measurementOrdered By: Andre Duarte on 05-28-2024 ALP [Catalytic activity/Vol] 67 U/L 40-129 [facility] Serum or plasma calcium elmira urement (mass/volume)Ordered By: Andre Duarte on 05-28-2024 Calcium [Mass/Vol] 9.7 mg/dL 7.6-11.0 [facility] Serum or plasma ferritin latricia surement (mass/volume)Ordered By: Andre Duarte on 05-28-2024 Ferritin [Mass/Vol] 55 ng/mL 37-417 [facility] Serum or plasma iron saturat ion measurement (mass fraction)Ordered By: Andre Duarte on 05-28-2024 Iron saturation [Mass fraction] 26.0 % 9-55 [facility] Serum or plasma urea nitroge n measurement (mass/volume)Ordered By: Andre Duarte on 05-28-2024 Urea nitrogen [Mass/Vol] 97 mg/dL High 4-19 [facility] Sodium levelOrdered By: Tray Duarte on 05-28-2024 Sodium [Moles/Vol] 143 mmol/L 133-145 [facility] Total proteinOrdered By: Doc Duarte on 05-28-2024 Protein [Mass/Vol] 7.2 g/dL 5.9-8.4 [facility] White blood cell (WBC) count Ordered By: Andre Duarte on 05-28-2024 WBC (Bld) [#/Vol] 7.2 10*3/uL 4.4-11.0 [facility] Oncology Visit Reporton 03-13 Oncology Visit Report Normal [facility] Erythropoietinon 03-26-2024 ERYTHROPOIETIN 15.0 mIU/mL Normal 2.6-18.5 [facility] Comment on above: Result Comment: [employer] DxI 800 Immunoassay SystemValues obtained with different assay methods or kits cannotbe used interchangeably. Results cannot be interpreted asabsolute evidence of the presence or absence of malignantdisease.Performed at: [place] [id number] Director: Tanmay Damon PhD, Phone: [phone] Performed By: #### L 500.4050, L100.9950, L503.6030, L3100.1350, L501.5200, L501.6710, L100.0100, L101.9900, L501.2300, L503.0105, L506.0250, L504.2610, L503.6550 ####[facility] [address] [place], [address] C-reactive protein measureme nt by high sensitivity methodOrdered By: Andre Duarte on 03-24-2024 C-Reactive Protein Extended Range < 2.90 mg/L 0.0-3.0 [facility] Comment on above: C-Reactive Protein ( CRP) provides useful information for thediagnosis, therapy and monitoring of inflammatory processesand associated diseases. For the evaluation of Relative Riskfor Cardiovascular Disease, a High Sensitivity CRP (HSCRP)should be ordered. CBC W/Diff, Automatedon 03-12 Absolute Lymph 1.11 X10 3/uL Normal 0.83-4.51 [facility] Comment on above: Performed By: #### L 500.4050, L100.9950, L503.6030, L3100.1350, L501.5200, L501.6710, L100.0100, L101.9900, L501.2300, L503.0105, L506.0250, L504.2610, L503.6550 ####[facility] [address] [place], [place], [id number] Absolute Neut 4.8 X10 3/uL Normal 2.0-7.7 [facility] Comment on above: Performed By: #### L 500.4050, L100.9950, L503.6030, L3100.1350, L501.5200, L501.6710, L100.0100, L101.9900, L501.2300, L503.0105, L506.0250, L504.2610, L503.6550 ####[facility] [address] [place], [place], [phone] Basophils/100 WBC (Bld) 0.6 % Normal 0-1 [facility] Comment on above: Performed By: #### L 500.4050, L100.9950, L503.6030, L3100.1350, L501.5200, L501.6710, L100.0100, L101.9900, L501.2300, L503.0105, L506.0250, L504.2610, L503.6550 ####[facility] [address] [place], [address] Eosinophils/100 WBC (Bld) 4.3 % Normal 0-5 [facility] Comment on above: Performed By: #### L 500.4050, L100.9950, L503.6030, L3100.1350, L501.5200, L501.6710, L100.0100, L101.9900, L501.2300, L503.0105, L506.0250, L504.2610, L503.6550 ####[facility] [address] [place], [phone]) Erythrocyte distribution width (RBC) [Ratio] 13.5 % Normal 11.6-14.6 [facility] Comment on above: Performed By: #### L 500.4050, L100.9950, L503.6030, L3100.1350, L501.5200, L501.6710, L100.0100, L101.9900, L501.2300, L503.0105, L506.0250, L504.2610, L503.6550 ####[facility] [address] [place], [phone]) Hematocrit (Bld) [Volume fraction] 27.4 % Low 40-54 [facility] Comment on above: Performed By: #### L 500.4050, L100.9950, L503.6030, L3100.1350, L501.5200, L501.6710, L100.0100, L101.9900, L501.2300, L503.0105, L506.0250, L504.2610, L503.6550 ####[facility] [address] [place], [address](324) Hemoglobin (Bld) [Mass/Vol] 8.6 g/dL Low 13.0-16.5 [facility] Comment on above: Performed By: #### L 500.4050, L100.9950, L503.6030, L3100.1350, L501.5200, L501.6710, L100.0100, L101.9900, L501.2300, L503.0105, L506.0250, L504.2610, L503.6550 ####[facility] [address], [address] IG% 0.300 Normal 0.0-0.9 [facility] Comment on above: Result Comment: IG% - Immature Granulocytes (promyelocytes, myelocytes andmetamyelocytes) > 1% indicates that a LEFT SHIFT is Present. Performed By: #### L 500.4050, L100.9950, L503.6030, L3100.1350, L501.5200, L501.6710, L100.0100, L101.9900, L501.2300, L503.0105, L506.0250, L504.2610, L503.6550 ####[facility] [address] [place], [address] Lymphocytes/100 WBC (Bld) 16.5 % Low 19-41 [facility] Comment on above: Performed By: #### L 500.4050, L100.9950, L503.6030, L3100.1350, L501.5200, L501.6710, L100.0100, L101.9900, L501.2300, L503.0105, L506.0250, L504.2610, L503.6550 ####[facility] [address] [place], [address] MCH (RBC) [Entitic mass] 30.4 pg Normal 27.0-32.0 [facility] Comment on above: Performed By: #### L 500.4050, L100.9950, L503.6030, L3100.1350, L501.5200, L501.6710, L100.0100, L101.9900, L501.2300, L503.0105, L506.0250, L504.2610, L503.6550 ####[facility] [address], [address] MCHC (RBC) [Mass/Vol] 31.4 g/dL Low 32-36 [facility] Comment on above: Performed By: #### L 500.4050, L100.9950, L503.6030, L3100.1350, L501.5200, L501.6710, L100.0100, L101.9900, L501.2300, L503.0105, L506.0250, L504.2610, L503.6550 ####[facility] [address], [address] MCV (RBC) [Entitic vol] 96.8 fL High 80-94 [facility] Comment on above: Performed By: #### L 500.4050, L100.9950, L503.6030, L3100.1350, L501.5200, L501.6710, L100.0100, L101.9900, L501.2300, L503.0105, L506.0250, L504.2610, L503.6550 ####[facility] [address], [address] Monocytes/100 WBC (Bld) 6.8 % Normal 0-10 [facility] Comment on above: Performed By: #### L 500.4050, L100.9950, L503.6030, L3100.1350, L501.5200, L501.6710, L100.0100, L101.9900, L501.2300, L503.0105, L506.0250, L504.2610, L503.6550 ####[facility] [address] [place], [address] Neutrophils/100 WBC (Bld) 71.5 % High 47-70 [facility] Comment on above: Performed By: #### L 500.4050, L100.9950, L503.6030, L3100.1350, L501.5200, L501.6710, L100.0100, L101.9900, L501.2300, L503.0105, L506.0250, L504.2610, L503.6550 ####[facility] [address] [place], [address] Nucleated RBC (Bld) [#/Vol] 0 10*3/uL Normal 0-5 [facility] Comment on above: Performed By: #### L 500.4050, L100.9950, L503.6030, L3100.1350, L501.5200, L501.6710, L100.0100, L101.9900, L501.2300, L503.0105, L506.0250, L504.2610, L503.6550 ####[facility] [address] [place], [place], [phone] Platelet mean volume (Bld) [Entitic vol] 10.8 fL Normal 6.2-12.0 [facility] Comment on above: Performed By: #### L 500.4050, L100.9950, L503.6030, L3100.1350, L501.5200, L501.6710, L100.0100, L101.9900, L501.2300, L503.0105, L506.0250, L504.2610, L503.6550 ####[facility] [address] [place], [address] Platelets (Bld) [#/Vol] 135 10*3/uL Low 150-450 [facility] Comment on above: Performed By: #### L 500.4050, L100.9950, L503.6030, L3100.1350, L501.5200, L501.6710, L100.0100, L101.9900, L501.2300, L503.0105, L506.0250, L504.2610, L503.6550 ####[facility] [address] [place], [address] RBC (Bld) [#/Vol] 2.83 10*6/uL Low 4.6-6.2 [facility] Comment on above: Performed By: #### L 500.4050, L100.9950, L503.6030, L3100.1350, L501.5200, L501.6710, L100.0100, L101.9900, L501.2300, L503.0105, L506.0250, L504.2610, L503.6550 ####[facility] [address] [place], [address] RDW SD 47.8 fl High 35.1-43.9 [facility] Comment on above: Performed By: #### L 500.4050, L100.9950, L503.6030, L3100.1350, L501.5200, L501.6710, L100.0100, L101.9900, L501.2300, L503.0105, L506.0250, L504.2610, L503.6550 ####[facility] [address] [place], [place], [phone]) WBC (Bld) [#/Vol] 6.7 10*3/uL Normal 4.4-11.0 [facility] Comment on above: Performed By: #### L 500.4050, L100.9950, L503.6030, L3100.1350, L501.5200, L501.6710, L100.0100, L101.9900, L501.2300, L503.0105, L506.0250, L504.2610, L503.6550 ####[facility] [address] [place], [place], [phone] CRPon 03-24-2024 C-REACTIVE PROT < 2.90 Normal 0.0-3.0 [facility] Comment on above: Order Comment: UNKNO WN1N Result Comment: C-Re active Protein (CRP) provides useful information for thediagnosis, therapy and monitoring of inflammatory processesand associated diseases. For the evaluation of Relative Riskfor Cardiovascular Disease, a High Sensitivity CRP (HSCRP)should be ordered. Performed By: #### L 500.4050, L100.9950, L503.6030, L3100.1350, L501.5200, L501.6710, L100.0100, L101.9900, L501.2300, L503.0105, L506.0250, L504.2610, L503.6550 ####[facility] [address] [place], [place], [phone] Comprehensive Metabolic Prof [facility] 03-24-2024 Albumin [Mass/Vol] 3.5 g/dL Normal 3.2-5.0 [facility] Comment on above: Order Comment: UNKNO WN1N Performed By: #### L 500.4050, L100.9950, L503.6030, L3100.1350, L501.5200, L501.6710, L100.0100, L101.9900, L501.2300, L503.0105, L506.0250, L504.2610, L503.6550 ####[facility] [address] [place], [place], [phone] Albumin/Globulin [Mass ratio] 0.9 {ratio} Normal 0.9-2.4 [facility] Comment on above: Order Comment: UNKNO WN1N Performed By: #### L 500.4050, L100.9950, L503.6030, L3100.1350, L501.5200, L501.6710, L100.0100, L101.9900, L501.2300, L503.0105, L506.0250, L504.2610, L503.6550 ####[facility] [address] [place], [place], [phone] ALK P 63 U/L Normal 45-117 [facility] Comment on above: Order Comment: UNKNO WN1N Performed By: #### L 500.4050, L100.9950, L503.6030, L3100.1350, L501.5200, L501.6710, L100.0100, L101.9900, L501.2300, L503.0105, L506.0250, L504.2610, L503.6550 ####[facility] [address] [place], [place], [phone] ALT [Catalytic activity/Vol] 22 U/L Normal 16-61 [facility] Comment on above: Order Comment: UNKNO WN1N Performed By: #### L 500.4050, L100.9950, L503.6030, L3100.1350, L501.5200, L501.6710, L100.0100, L101.9900, L501.2300, L503.0105, L506.0250, L504.2610, L503.6550 ####[facility] [address] [place], [address] AST [Catalytic activity/Vol] 13 U/L Low 15-37 [facility] Comment on above: Order Comment: UNKNO WN1N Performed By: #### L 500.4050, L100.9950, L503.6030, L3100.1350, L501.5200, L501.6710, L100.0100, L101.9900, L501.2300, L503.0105, L506.0250, L504.2610, L503.6550 ####[facility] [address] [place], [place], [phone] Bilirubin [Mass/Vol] 0.40 mg/dL Normal 0.20-1.00 [facility] Comment on above: Order Comment: UNKNO WN1N Result Comment: For patients on eltrombopag therapy, use of Dimension [place] TBIL is not recommended. Performed By: #### L 500.4050, L100.9950, L503.6030, L3100.1350, L501.5200, L501.6710, L100.0100, L101.9900, L501.2300, L503.0105, L506.0250, L504.2610, L503.6550 ####[facility] [address] [place], [place], [phone]) BUN/CRE 35.6 RATIO High 10-20 [facility] Comment on above: Order Comment: UNKNO WN1N Performed By: #### L 500.4050, L100.9950, L503.6030, L3100.1350, L501.5200, L501.6710, L100.0100, L101.9900, L501.2300, L503.0105, L506.0250, L504.2610, L503.6550 ####[facility] [address] [place], [place], [phone]) CA,Total 10.0 mg/dL Normal 8.5-10.1 [facility] Comment on above: Order Comment: UNKNO WN1N Performed By: #### L 500.4050, L100.9950, L503.6030, L3100.1350, L501.5200, L501.6710, L100.0100, L101.9900, L501.2300, L503.0105, L506.0250, L504.2610, L503.6550 ####[facility] [address] [place], [place], [phone]) Chloride [Moles/Vol] 110 mmol/L High 98-107 [facility] Comment on above: Order Comment: UNKNO WN1N Performed By: #### L 500.4050, L100.9950, L503.6030, L3100.1350, L501.5200, L501.6710, L100.0100, L101.9900, L501.2300, L503.0105, L506.0250, L504.2610, L503.6550 ####[facility] [address] [place], [place], [phone] CO2 [Moles/Vol] 28.0 mmol/L Normal 21.0-32.0 [facility] Comment on above: Order Comment: UNKNO WN1N Performed By: #### L 500.4050, L100.9950, L503.6030, L3100.1350, L501.5200, L501.6710, L100.0100, L101.9900, L501.2300, L503.0105, L506.0250, L504.2610, L503.6550 ####[facility] [address] [place], [place], [phone] Creatinine [Mass/Vol] 2.53 mg/dL High 0.70-1.30 [facility] Comment on above: Order Comment: UNKNO WN1N Result Comment: The validity of the calculated GFR GFRAA in patients over70 years has not been determined. Clinical correlation isessential. Performed By: #### L 500.4050, L100.9950, L503.6030, L3100.1350, L501.5200, L501.6710, L100.0100, L101.9900, L501.2300, L503.0105, L506.0250, L504.2610, L503.6550 ####[facility] [address] [place], [place], [phone] EST GFR - AA 31 mL/min Low >60 [facility] Comment on above: Order Comment: UNKNO WN1N Result Comment: Afri can Guyanese GFR Calc Performed By: #### L 500.4050, L100.9950, L503.6030, L3100.1350, L501.5200, L501.6710, L100.0100, L101.9900, L501.2300, L503.0105, L506.0250, L504.2610, L503.6550 ####[facility] [address] [place], [place], [phone] GAP 6 Normal 5-15 [facility] Comment on above: Order Comment: UNKNO WN1N Performed By: #### L 500.4050, L100.9950, L503.6030, L3100.1350, L501.5200, L501.6710, L100.0100, L101.9900, L501.2300, L503.0105, L506.0250, L504.2610, L503.6550 ####[facility] [address] [place], [place], [phone] GFR/1.73 sq M.predicted among non-blacks MDRD (S/P/Bld) [Vol rate/Area] 26 mL/min/{1.73_m2} Low >60 [facility] Comment on above: Order Comment: UNKNO WN1N Result Comment: Non- GFR Calc Performed By: #### L 500.4050, L100.9950, L503.6030, L3100.1350, L501.5200, L501.6710, L100.0100, L101.9900, L501.2300, L503.0105, L506.0250, L504.2610, L503.6550 ####[facility] [address] [place], [place], [phone] Globulin (S) [Mass/Vol] 3.7 g/dL Normal 2.2-4.2 [facility] Comment on above: Order Comment: UNKNO WN1N Performed By: #### L 500.4050, L100.9950, L503.6030, L3100.1350, L501.5200, L501.6710, L100.0100, L101.9900, L501.2300, L503.0105, L506.0250, L504.2610, L503.6550 ####[facility] [address] [place], [place], [address] Glucose [Mass/Vol] 83 mg/dL Normal 74-106 [facility] Comment on above: Order Comment: UNKNO WN1N Performed By: #### L 500.4050, L100.9950, L503.6030, L3100.1350, L501.5200, L501.6710, L100.0100, L101.9900, L501.2300, L503.0105, L506.0250, L504.2610, L503.6550 ####[facility] [address] [place], [address] Potassium [Moles/Vol] 4.6 mmol/L Normal 3.5-5.1 [facility] Comment on above: Order Comment: UNKNO WN1N Performed By: #### L 500.4050, L100.9950, L503.6030, L3100.1350, L501.5200, L501.6710, L100.0100, L101.9900, L501.2300, L503.0105, L506.0250, L504.2610, L503.6550 ####[facility] [address] [place], [address] Sodium [Moles/Vol] 143 mmol/L Normal 136-145 [facility] Comment on above: Order Comment: UNKNO WN1N Performed By: #### L 500.4050, L100.9950, L503.6030, L3100.1350, L501.5200, L501.6710, L100.0100, L101.9900, L501.2300, L503.0105, L506.0250, L504.2610, L503.6550 ####[facility] [address] [place], [address] T PROT 7.2 g/dL Normal 6.4-8.2 [facility] Comment on above: Order Comment: UNKNO WN1N Performed By: #### L 500.4050, L100.9950, L503.6030, L3100.1350, L501.5200, L501.6710, L100.0100, L101.9900, L501.2300, L503.0105, L506.0250, L504.2610, L503.6550 ####[facility] [address] [place], [place], [id number] Urea nitrogen [Mass/Vol] 90 mg/dL High 7-18 [facility] Comment on above: Order Comment: UNKNO WN1N Performed By: #### L 500.4050, L100.9950, L503.6030, L3100.1350, L501.5200, L501.6710, L100.0100, L101.9900, L501.2300, L503.0105, L506.0250, L504.2610, L503.6550 ####[facility] [address] [place], [place], [phone] Erythrocyte Sed Rateon 03-24 SED RATE 31 mm/hr High 0-20 [facility] Comment on above: Performed By: #### L 500.4050, L100.9950, L503.6030, L3100.1350, L501.5200, L501.6710, L100.0100, L101.9900, L501.2300, L503.0105, L506.0250, L504.2610, L503.6550 ####[facility] [address] [place], [place], [phone] Erythrocyte sedimentation ra teOrdered By: Andre Duarte on 03-24-2024 ESR (Bld) [Velocity] 31 mm/h [facility] 0-20 [facility] Erythropoietin (EPO) QnOrder ed By: Andre Duarte on 03-24-2024 Erythropoietin 15.0 mIU/mL 2.6-18.5 [facility] Comment on above: Pedro Medypal UniC el DxI 800 Immunoassay SystemValues obtained with different assay methods or kits cannotbe used interchangeably. Results cannot be interpreted asabsolute evidence of the presence or absence of malignantdisease.Performed at: - [facility] [place], [place] [id number] Director: Tanmay Damon PhD, Phone: [phone] Estimated glomerular filtrat ion rate (GFR) AmericanOrdered By: Andre Duarte on 03-24-2024 Estimated GFR (MDRD) Amer 31 mL/min Low >60 [facility] Comment on above: GFR Calc Ferritinon 03-24-2024 Ferritin [Mass/Vol] 43 ng/mL Normal 26-388 [facility] Comment on above: Order Comment: UNKNO WN1N Performed By: #### L 500.4050, L100.9950, L503.6030, L3100.1350, L501.5200, L501.6710, L100.0100, L101.9900, L501.2300, L503.0105, L506.0250, L504.2610, L503.6550 ####[facility] [address] [place], [place], [phone] Folates, (Folic Acid)on 03-12 FOLATES 11.90 ng/mL Normal 3.1-55.4 [facility] Comment on above: Order Comment: UNKNO WN1N Performed By: #### L 500.4050, L100.9950, L503.6030, L3100.1350, L501.5200, L501.6710, L100.0100, L101.9900, L501.2300, L503.0105, L506.0250, L504.2610, L503.6550 ####[facility] [address] [place], [address] Folic acid measurementOrdere d By: Andre Duarte on 03-24-2024 Folate 11.90 ng/mL 3.1-55.4 [facility] Iron+Iron Binding Capacityon 03-24-2024 Iron [Mass/Vol] 44 ug/dL Low 65-175 [facility] Comment on above: Order Comment: UNKNO WN1N Performed By: #### L 500.4050, L100.9950, L503.6030, L3100.1350, L501.5200, L501.6710, L100.0100, L101.9900, L501.2300, L503.0105, L506.0250, L504.2610, L503.6550 ####[facility] [address] [place], [place], [id number] IRON SATURATION 15.0 Normal 15.0-55.0 [facility] Comment on above: Order Comment: UNKNO WN1N Performed By: #### L 500.4050, L100.9950, L503.6030, L3100.1350, L501.5200, L501.6710, L100.0100, L101.9900, L501.2300, L503.0105, L506.0250, L504.2610, L503.6550 ####[facility] [address] [place], [place], [id number] TIBC 294 ug/dL Normal 250-450 [facility] Comment on above: Order Comment: UNKNO WN1N Performed By: #### L 500.4050, L100.9950, L503.6030, L3100.1350, L501.5200, L501.6710, L100.0100, L101.9900, L501.2300, L503.0105, L506.0250, L504.2610, L503.6550 ####[facility] [address] [place], [place], [id number] LDHon 03-24-2024 LDH 143 U/L Normal 87-241 [facility] Comment on above: Order Comment: UNKNO WN1N Performed By: #### L 500.4050, L100.9950, L503.6030, L3100.1350, L501.5200, L501.6710, L100.0100, L101.9900, L501.2300, L503.0105, L506.0250, L504.2610, L503.6550 ####[facility] [address] [place], [address] Magnesiumon 03-24-2024 Magnesium [Mass/Vol] 1.7 mg/dL Normal 1.6-2.6 [facility] Comment on above: Order Comment: UNKNO WN1N Performed By: #### L 500.4050, L100.9950, L503.6030, L3100.1350, L501.5200, L501.6710, L100.0100, L101.9900, L501.2300, L503.0105, L506.0250, L504.2610, L503.6550 ####[facility] [address] [place], [place], [id number] Magnesium measurementOrdered By: Andre Duarte on 03-24-2024 Magnesium [Mass/Vol] 1.7 mg/dL 1.6-2.6 [facility] Oncology Visit Reporton 03-12 Oncology Visit Report Normal [facility] Phosphoruson 03-24-2024 Phosphate [Mass/Vol] 4.0 mg/dL Normal 2.5-4.9 [facility] Comment on above: Order Comment: UNKNO WN1N Performed By: #### L 500.4050, L100.9950, L503.6030, L3100.1350, L501.5200, L501.6710, L100.0100, L101.9900, L501.2300, L503.0105, L506.0250, L504.2610, L503.6550 ####[facility] [address] [place], [place], [id number] Phosphorus measurementOrdere d By: Andre Duarte on 03-24-2024 Phosphorus Level 4.0 mg/dL 2.5-4.9 [facility] Retic Panelon 03-24-2024 IM RET FRACTION 20.20 High 3.00-15.90 [facility] Comment on above: Performed By: #### L 500.4050, L100.9950, L503.6030, L3100.1350, L501.5200, L501.6710, L100.0100, L101.9900, L501.2300, L503.0105, L506.0250, L504.2610, L503.6550 ####[facility] [address] [place], [address] RET-HE 32.7 pg Normal 30-35 [facility] Comment on above: Performed By: #### L 500.4050, L100.9950, L503.6030, L3100.1350, L501.5200, L501.6710, L100.0100, L101.9900, L501.2300, L503.0105, L506.0250, L504.2610, L503.6550 ####[facility] [address] [place], [address] Retic Count 4.14 High 0.5-1.5 [facility] Comment on above: Performed By: #### L 500.4050, L100.9950, L503.6030, L3100.1350, L501.5200, L501.6710, L100.0100, L101.9900, L501.2300, L503.0105, L506.0250, L504.2610, L503.6550 ####[facility] [address] [place], [address] Serum or plasma erythropoiet in (EPO) measurement (units/volume)Ordered By: Andre Duarte on 03-24-2024 Erythropoietin (EPO) Qn 15.0 mIU/mL 2.6-18.5 [facility] Comment on above: Pedro Medypal UniC el DxI 800 Immunoassay SystemValues obtained with different assay methods or kits cannotbe used interchangeably. Results cannot be interpreted asabsolute evidence of the presence or absence of malignantdisease.Performed at: [address] [id number] Director: Tanmay Damon PhD, Phone: [phone] Vitamin B12on 03-24-2024 Cobalamin (Vitamin B12) [Mass/Vol] 584 pg/mL Normal 211-911 [facility] Comment on above: Performed By: #### L 500.4050, L100.9950, L503.6030, L3100.1350, L501.5200, L501.6710, L100.0100, L101.9900, L501.2300, L503.0105, L506.0250, L504.2610, L503.6550 ####[facility] [address] [place], [address] Vitamin B12 measurementOrder ed By: Andre Duarte on 03-24-2024 Cobalamin (Vitamin B12) [Mass/Vol] 584 pg/mL 211-911 [facility] Gastroenterology Visit Repor ton 03-17-2024 Gastroenterology Visit Report Normal [facility] Absolute neutrophil countOrd ered By: Yuridia Hernandez on 03-14-2024 Neutrophils (Bld) [#/Vol] 4.5 10*3/uL 2.0-7.7 [facility] Basic Metabolic Profile (BMP )on 03-14-2024 BUN/CRE 28.6 RATIO High 10-20 [facility] Comment on above: Performed By: #### L 100.0100, L500.2500, L501.0900 ####[facility] [address] [place], [address] CA,Total 9.9 mg/dL Normal 8.5-10.1 [facility] Comment on above: Performed By: #### L 100.0100, L500.2500, L501.0900 ####[facility] [address] [place], [address] Chloride [Moles/Vol] 104 mmol/L Normal 98-107 [facility] Comment on above: Performed By: #### L 100.0100, L500.2500, L501.0900 ####[facility] [address] [place], [address] CO2 [Moles/Vol] 31.0 mmol/L Normal 21.0-32.0 [facility] Comment on above: Performed By: #### L 100.0100, L500.2500, L501.0900 ####[facility] [address] [place], [address] Creatinine [Mass/Vol] 2.94 mg/dL High 0.70-1.30 [facility] Comment on above: Result Comment: The validity of the calculated GFR GFRAA in patients over70 years has not been determined. Clinical correlation isessential. Performed By: #### L 100.0100, L500.2500, L501.0900 ####[facility] [address] [place], [address] EST GFR - AA 26 mL/min Low >60 [facility] Comment on above: Result Comment: Afri can Guyanese GFR Calc Performed By: #### L 100.0100, L500.2500, L501.0900 ####[facility] [address] [place], [address] GAP 6 Normal 5-15 [facility] Comment on above: Performed By: #### L 100.0100, L500.2500, L501.0900 ####[facility] [address] [place], [address] GFR/1.73 sq M.predicted among non-blacks MDRD (S/P/Bld) [Vol rate/Area] 22 mL/min/{1.73_m2} Low >60 [facility] Comment on above: Result Comment: Non- GFR Calc Performed By: #### L 100.0100, L500.2500, L501.0900 ####[facility] [address] [place], [address] Glucose [Mass/Vol] 290 mg/dL High 74-106 [facility] Comment on above: Result Comment: Gluc ose result greater than or equal to 200 mg/dLsuggests DIABETES MELLITUS per A.D.A. criteria. Performed By: #### L 100.0100, L500.2500, L501.0900 ####[facility] [address] [place], [address] Potassium [Moles/Vol] 5.3 mmol/L High 3.5-5.1 [facility] Comment on above: Performed By: #### L 100.0100, L500.2500, L501.0900 ####[facility] [address] [place], [address] Sodium [Moles/Vol] 141 mmol/L Normal 136-145 [facility] Comment on above: Performed By: #### L 100.0100, L500.2500, L501.0900 ####[facility] [address] [place], [address] Urea nitrogen [Mass/Vol] 84 mg/dL High 7-18 [facility] Comment on above: Performed By: #### L 100.0100, L500.2500, L501.0900 ####[facility] [address] [place], [address] Basophil percentageOrdered B y: Yuridia Hernandez on 03-14-2024 Basophils/100 WBC (Bld) 0.5 % 0-1 [facility] Blood urea nitrogen (BUN)/cr eatinine ratioOrdered By: Yuridia Hernandez on 03-14-2024 Urea nitrogen/Creatinine [Mass ratio] 28.6 mg/mg High 10-20 [facility] CBC W/Diff, Automatedon Absolute Lymph 1.03 X10 3/uL Normal 0.83-4.51 [facility] Comment on above: Performed By: #### L 100.0100, L500.2500, L501.0900 ####[facility] [address] [place], [address] Absolute Neut 4.5 X10 3/uL Normal 2.0-7.7 [facility] Comment on above: Performed By: #### L 100.0100, L500.2500, L501.0900 ####[facility] [address] [place], [address] Basophils/100 WBC (Bld) 0.5 % Normal 0-1 [facility] Comment on above: Performed By: #### L 100.0100, L500.2500, L501.0900 ####[facility] [address] [place], [address] Eosinophils/100 WBC (Bld) 2.3 % Normal 0-5 [facility] Comment on above: Performed By: #### L 100.0100, L500.2500, L501.0900 ####[facility] [address] [place], [address] Erythrocyte distribution width (RBC) [Ratio] 13.5 % Normal 11.6-14.6 [facility] Comment on above: Performed By: #### L 100.0100, L500.2500, L501.0900 ####[facility] [address] [place], [address] Hematocrit (Bld) [Volume fraction] 29.3 % Low 40-54 [facility] Comment on above: Performed By: #### L 100.0100, L500.2500, L501.0900 ####[facility] [address] [place], [address] Hemoglobin (Bld) [Mass/Vol] 8.9 g/dL Low 13.0-16.5 [facility] Comment on above: Performed By: #### L 100.0100, L500.2500, L501.0900 ####[facility] [address] [place], [address] IG% 0.500 Normal 0.0-0.9 [facility] Comment on above: Result Comment: IG% - Immature Granulocytes (promyelocytes, myelocytes andmetamyelocytes) > 1% indicates that a LEFT SHIFT is Present. Performed By: #### L 100.0100, L500.2500, L501.0900 ####[facility] [address] [place], [address] Lymphocytes/100 WBC (Bld) 16.6 % Low 19-41 [facility] Comment on above: Performed By: #### L 100.0100, L500.2500, L501.0900 ####[facility] [address] [place], [address] MCH (RBC) [Entitic mass] 31.0 pg Normal 27.0-32.0 [facility] Comment on above: Performed By: #### L 100.0100, L500.2500, L501.0900 ####[facility] [address] [place], [address] MCHC (RBC) [Mass/Vol] 30.4 g/dL Low 32-36 [facility] Comment on above: Performed By: #### L 100.0100, L500.2500, L501.0900 ####[facility] [address] [place], [address] MCV (RBC) [Entitic vol] 102.1 fL High 80-94 [facility] Comment on above: Performed By: #### L 100.0100, L500.2500, L501.0900 ####[facility] [address] [place], [address] Monocytes/100 WBC (Bld) 7.7 % Normal 0-10 [facility] Comment on above: Performed By: #### L 100.0100, L500.2500, L501.0900 ####[facility] [address] [place], [address] Neutrophils/100 WBC (Bld) 72.4 % High 47-70 [facility] Comment on above: Performed By: #### L 100.0100, L500.2500, L501.0900 ####[facility] [address] [place], [address] Nucleated RBC (Bld) [#/Vol] 0 10*3/uL Normal 0-5 [facility] Comment on above: Performed By: #### L 100.0100, L500.2500, L501.0900 ####[facility] [address] [place], [address] Platelet mean volume (Bld) [Entitic vol] 11.9 fL Normal 6.2-12.0 [facility] Comment on above: Performed By: #### L 100.0100, L500.2500, L501.0900 ####[facility] [address] [place], [address] Platelets (Bld) [#/Vol] 112 10*3/uL Low 150-450 [facility] Comment on above: Performed By: #### L 100.0100, L500.2500, L501.0900 ####[facility] [address] [place], [address] RBC (Bld) [#/Vol] 2.87 10*6/uL Low 4.6-6.2 [facility] Comment on above: Performed By: #### L 100.0100, L500.2500, L501.0900 ####[facility] [address] [place], [address] RDW SD 51.0 fl High 35.1-43.9 [facility] Comment on above: Performed By: #### L 100.0100, L500.2500, L501.0900 ####[facility] [address] [place], [address] WBC (Bld) [#/Vol] 6.2 10*3/uL Normal 4.4-11.0 [facility] Comment on above: Performed By: #### L 100.0100, L500.2500, L501.0900 ####[facility] [address] [place], [address] Carbon dioxide measurementOr dered By: Yuridia Hernandez on 03-14-2024 CO2 [Moles/Vol] 31.0 mmol/L 21.0-32.0 [facility] Chloride measurementOrdered By: Yuridia Hernandez on 03-14-2024 Chloride [Moles/Vol] 104 mmol/L 98-107 [facility] Eosinophil percentageOrdered By: Yuridia Hernandez on 03-14-2024 Eosinophils/100 WBC (Bld) 2.3 % 0-5 [facility] Erythrocyte distribution wid th (RBC) [Ratio]Ordered By: Yuridia Hernandez on 03-14-2024 Erythrocyte distribution width (RBC) [Entitic vol] 51.0 fL High 35.1-43.9 [facility] Erythrocyte distribution wid th ratioOrdered By: Yuridia Hernandez on 03-14-2024 Erythrocyte distribution width (RBC) [Ratio] 13.5 % 11.6-14.6 [facility] Estimated glomerular filtrat ion rate (GFR) AmericanOrdered By: Yuridia Hernandez on 03-14-2024 Estimated GFR (MDRD) Amer 26 mL/min Low >60 [facility] Comment on above: GFR Calc Glomerular filtration rate ( GFR) estimationOrdered By: Yuridia Hernandez on 03-14-2024 Estimated GFR (MDRD) Non-Af Amer 22 mL/min Low >60 [facility] Comment on above: Non- GFR Calc Glucose measurementOrdered B y: Yuridia Hernandez on 03-14-2024 Glucose [Mass/Vol] 290 mg/dL High 74-106 [facility] Comment on above: Glucose result great er than or equal to 200 mg/dLsuggests DIABETES MELLITUS per A.D.A. criteria. Hematocrit Auto (Bld) [Volum e fraction]Ordered By: Yuridia Hernandez on 03-14-2024 Hematocrit (Bld) [Volume fraction] 29.3 % Low 40-54 [facility] Hemoglobin measurementOrdere d By: Yuridia Hernandez on 03-14-2024 Hemoglobin (Bld) [Mass/Vol] 8.9 g/dL Low 13.0-16.5 [facility] Immature granulocytes/100 WB C Auto (Bld)Ordered By: Yuridia Hernandez on 03-14-2024 Immature granulocytes/100 WBC (Bld) 0.500 % 0.0-0.9 [facility] Comment on above: IG% - Immature Granu locytes (promyelocytes, myelocytes and metamyelocytes) > 1% indicates that a LEFT SHIFT is Present. Lymphocytes Auto (Unsp spec) [#/Vol]Ordered By: Yuridia Hernandez on 03-14-2024 Lymphocytes (Bld) [#/Vol] 1.03 10*3/uL 0.83-4.51 [facility] Lymphocytes/100 WBC Auto (Un sp spec)Ordered By: Yuridia Hernandez on 03-14-2024 Lymphocytes/100 WBC (Bld) 16.6 % Low 19-41 [facility] MCV (mean corpuscular volume ) determinationOrdered By: Yuridia Hernandez on 03-14-2024 MCV (RBC) [Entitic vol] 102.1 fL High 80-94 [facility] Mean corpuscular hemoglobin (MCH) determinationOrdered By: Yuridia Hernandez on 03-14-2024 MCH (RBC) [Entitic mass] 31.0 pg 27.0-32.0 [facility] Mean corpuscular hemoglobin concentration (MCHC) determinationOrdered By: Yuridia Hernandez on 03-14-2024 MCHC (RBC) [Mass/Vol] 30.4 g/dL Low 32-36 [facility] Mean platelet volume determi nationOrdered By: Yuridia Hernandez on 03-14-2024 Platelet mean volume (Bld) [Entitic vol] 11.9 fL 6.2-12.0 [facility] Monocyte percentageOrdered B y: Yuridia Hernandez on 03-14-2024 Monocytes/100 WBC (Bld) 7.7 % 0-10 [facility] Neutrophil percentageOrdered By: Yuridia Hernandez on 03-14-2024 Neutrophils/100 WBC (Bld) 72.4 % High 47-70 [facility] Nucleated red blood cell per centageOrdered By: Yuridia Hernandez on 03-14-2024 Nucleated RBC/100 WBC (Bld) [Ratio] 0 % 0-5 [facility] Platelet countOrdered By: Mkie Hernandez on 03-14-2024 Platelets (Bld) [#/Vol] 112 10*3/uL Low 150-450 [facility] Potassium measurementOrdered By: Yuridia Hernandez on 03-14-2024 Potassium [Moles/Vol] 5.3 mmol/L High 3.5-5.1 [facility] Protein+Creatinine Ratio,Uri neon 03-14-2024 PROT:CRE RATIO 329 mg/g CRE High 0-200 [facility] Comment on above: Performed By: #### L 100.0100, L500.2500, L501.0900 ####[facility] [address] [place], [address] Protein (U) [Mass/Vol] 7.7 mg/dL Normal <11.9 [facility] Comment on above: Performed By: #### L 100.0100, L500.2500, L501.0900 ####[facility] [address] [place], [address] UR CREAT 23.40 mg/dL Normal NO RANGE EST. [facility] Comment on above: Performed By: #### L 100.0100, L500.2500, L501.0900 ####[facility] [address] [place], [address] Protein/Creatinine (U) [Mass ratio]Ordered By: Yuridia Hernandez on 03-14-2024 Urine Protein/Creatinine Ratio 329 mg/g CRE High 0-200 [facility] RBC Auto (Bld) [#/Vol]Ordere d By: Yuridia Hernandez on 03-14-2024 RBC (Bld) [#/Vol] 2.87 10*6/uL Low 4.6-6.2 [facility] Random urine protein measure mentOrdered By: Yuridia Hernandez on 03-14-2024 Protein (U) [Mass/Vol] 7.7 mg/dL 0.0-11.8 [facility] Serum anion gap measurementO rdered By: Yuridia Hernandez on 03-14-2024 Anion gap [Moles/Vol] 6 mmol/L 5-15 [facility] Serum or plasma calcium elmira urement (mass/volume)Ordered By: Yuridia Hernandez on 03-14-2024 Calcium [Mass/Vol] 9.9 mg/dL 8.5-10.1 [facility] Serum or plasma creatinine m easurement (mass/volume)Ordered By: Yuridia Hernandez on 03-14-2024 Creatinine [Mass/Vol] 2.94 mg/dL High 0.70-1.30 [facility] Comment on above: The validity of the calculated GFR & GFRAA in patients over 70 years has not been determined. Clinical correlation is essential. Serum or plasma urea nitroge n measurement (mass/volume)Ordered By: Yuridia Hernandez on 03-14-2024 Urea nitrogen [Mass/Vol] 84 mg/dL High - [facility] Sodium levelOrdered By: Yuridia Hernandez on 03-14-2024 Sodium [Moles/Vol] 141 mmol/L 136-145 [facility] Urine creatinine measurement (mass/volume)Ordered By: Yuridia Hernandez on 03-14-2024 Creatinine (U) [Mass/Vol] 23.40 mg/dL NO RANGE EST. [facility] White blood cell (WBC) count Ordered By: Yuridia Hernandez on 03-14-2024 WBC (Bld) [#/Vol] 6.2 10*3/uL 4.4-11.0 [facility] Basic Metabolic Profile (BMP )on 03-08-2024 BUN Normal 09-26 [facility] Comment on above: Result Comment: Canc elled via OM: Order cancelled - Patient discharged Performed By: #### L 100.0100, L500.2500 ####[facility] [address] [place], [address] BUN/CRE Normal - [facility] Comment on above: Result Comment: Canc elled via OM: Order cancelled - Patient discharged Performed By: #### L 100.0100, L500.2500 ####[facility] [address] [place], [address] CA,Total Normal 8.5-10.1 [facility] Comment on above: Result Comment: Canc elled via OM: Order cancelled - Patient discharged Performed By: #### L 100.0100, L500.2500 ####[facility] [address] [place], [address] CL Normal 98-107 [facility] Comment on above: Result Comment: Canc elled via OM: Order cancelled - Patient discharged Performed By: #### L 100.0100, L500.2500 ####[facility] [address] [place], [address] CO2 Normal 21.0-32.0 [facility] Comment on above: Result Comment: Canc elled via OM: Order cancelled - Patient discharged Performed By: #### L 100.0100, L500.2500 ####[facility] [address] [place], [address] CREAT,SERUM Normal 0.70-1.30 [facility] Comment on above: Result Comment: Canc elled via OM: Order cancelled - Patient discharged Performed By: #### L 100.0100, L500.2500 ####[facility] [address] [place], [address] EST GFR Normal >60 [facility] Comment on above: Result Comment: Canc elled via OM: Order cancelled - Patient discharged Performed By: #### L 100.0100, L500.2500 ####[facility] [address] [place], [address] EST GFR - AA Normal >60 [facility] Comment on above: Result Comment: Canc elled via OM: Order cancelled - Patient discharged Performed By: #### L 100.0100, L500.2500 ####[facility] [address] [place], [address] GAP Normal 5-15 [facility] Comment on above: Result Comment: Canc elled via OM: Order cancelled - Patient discharged Performed By: #### L 100.0100, L500.2500 ####[facility] [address] [place], [address] GLU Normal 74-106 [facility] Comment on above: Result Comment: Canc elled via OM: Order cancelled - Patient discharged Performed By: #### L 100.0100, L500.2500 ####[facility] [address] [place], [address] Potassium Normal 3.5-5.1 [facility] Comment on above: Result Comment: Canc elled via OM: Order cancelled - Patient discharged Performed By: #### L 100.0100, L500.2500 ####[facility] [address] [place], [address] Basic Metabolic Profile (BMP) Normal 136-145 [facility] Comment on above: Result Comment: Canc elled via OM: Order cancelled - Patient discharged Performed By: #### L 100.0100, L500.2500 ####[facility] [address] [place], [address] CBC W/Diff, Automatedon 12-2 Absolute Neut Normal 2.0-7.7 [facility] Comment on above: Result Comment: Canc elled via OM: Order cancelled - Patient discharged Performed By: #### L 100.0100, L500.2500 ####[facility] [address] [place], [address] HCT Normal 40-54 [facility] Comment on above: Result Comment: Canc elled via OM: Order cancelled - Patient discharged Performed By: #### L 100.0100, L500.2500 ####[facility] [address] [place], [address] HGB Normal 13.0-16.5 [facility] Comment on above: Result Comment: Canc elled via OM: Order cancelled - Patient discharged Performed By: #### L 100.0100, L500.2500 ####[facility] [address] [place], [address] MCH Normal 27.0-32.0 [facility] Comment on above: Result Comment: Canc elled via OM: Order cancelled - Patient discharged Performed By: #### L 100.0100, L500.2500 ####[facility] [address] [place], [address] MCHC Normal 32-36 [facility] Comment on above: Result Comment: Canc elled via OM: Order cancelled - Patient discharged Performed By: #### L 100.0100, L500.2500 ####[facility] [address] [place], [address] MCV Normal 80-94 [facility] Comment on above: Result Comment: Canc elled via OM: Order cancelled - Patient discharged Performed By: #### L 100.0100, L500.2500 ####[facility] [address] [place], [address] NEUT% Normal 47-70 [facility] Comment on above: Result Comment: Canc elled via OM: Order cancelled - Patient discharged Performed By: #### L 100.0100, L500.2500 ####[facility] [address] [place], [address] PLT Normal 150-450 [facility] Comment on above: Result Comment: Canc elled via OM: Order cancelled - Patient discharged Performed By: #### L 100.0100, L500.2500 ####[facility] [address] [place], [address] RBC Normal 4.6-6.2 [facility] Comment on above: Result Comment: Canc elled via OM: Order cancelled - Patient discharged Performed By: #### L 100.0100, L500.2500 ####[facility] [address] [place], [address] RDW CV Normal 11.6-14.6 [facility] Comment on above: Result Comment: Canc elled via OM: Order cancelled - Patient discharged Performed By: #### L 100.0100, L500.2500 ####[facility] [address] [place], [address] RDW SD Normal 35.1-43.9 [facility] Comment on above: Result Comment: Canc elled via OM: Order cancelled - Patient discharged Performed By: #### L 100.0100, L500.2500 ####[facility] [address] [place], [address] WBC Normal 4.4-11.0 [facility] Comment on above: Result Comment: Canc elled via OM: Order cancelled - Patient discharged Performed By: #### L 100.0100, L500.2500 ####[facility] [address] [place], [address] Basic Metabolic Profile (BMP )on 03-07-2024 BUN Normal 7-18 [facility] Comment on above: Result Comment: Canc elled via OM: Order cancelled - Patient discharged Performed By: #### L 100.0100, L500.2500 ####[facility] [address] [place], [address] BUN/CRE Normal 10-20 [facility] Comment on above: Result Comment: Canc elled via OM: Order cancelled - Patient discharged Performed By: #### L 100.0100, L500.2500 ####[facility] [address] [place], [address] CA,Total Normal 8.5-10.1 [facility] Comment on above: Result Comment: Canc elled via OM: Order cancelled - Patient discharged Performed By: #### L 100.0100, L500.2500 ####[facility] [address] [place], [address] CL Normal 98-107 [facility] Comment on above: Result Comment: Canc elled via OM: Order cancelled - Patient discharged Performed By: #### L 100.0100, L500.2500 ####[facility] [address] [place], [address] CO2 Normal 21.0-32.0 [facility] Comment on above: Result Comment: Canc elled via OM: Order cancelled - Patient discharged Performed By: #### L 100.0100, L500.2500 ####[facility] [address] [place], [address] CREAT,SERUM Normal 0.70-1.30 [facility] Comment on above: Result Comment: Canc elled via OM: Order cancelled - Patient discharged Performed By: #### L 100.0100, L500.2500 ####[facility] [address] [place], [address] EST GFR Normal >60 [facility] Comment on above: Result Comment: Canc elled via OM: Order cancelled - Patient discharged Performed By: #### L 100.0100, L500.2500 ####[facility] [address] [place], [address] EST GFR - AA Normal >60 [facility] Comment on above: Result Comment: Canc elled via OM: Order cancelled - Patient discharged Performed By: #### L 100.0100, L500.2500 ####[facility] [address] [place], [address] GAP Normal 5-15 [facility] Comment on above: Result Comment: Canc elled via OM: Order cancelled - Patient discharged Performed By: #### L 100.0100, L500.2500 ####[facility] [address] [place], [address] GLU Normal 74-106 [facility] Comment on above: Result Comment: Canc elled via OM: Order cancelled - Patient discharged Performed By: #### L 100.0100, L500.2500 ####[facility] [address] [place], [address] Potassium Normal 3.5-5.1 [facility] Comment on above: Result Comment: Canc elled via OM: Order cancelled - Patient discharged Performed By: #### L 100.0100, L500.2500 ####[facility] [address] [place], [address] Basic Metabolic Profile (BMP) Normal 136-145 [facility] Comment on above: Result Comment: Canc elled via OM: Order cancelled - Patient discharged Performed By: #### L 100.0100, L500.2500 ####[facility] [address] [place], [address] CBC W/Diff, Automatedon 12-2 Absolute Neut Normal 2.0-7.7 [facility] Comment on above: Result Comment: Canc elled via OM: Order cancelled - Patient discharged Performed By: #### L 100.0100, L500.2500 ####[facility] [address] [place], [address] HCT Normal 40-54 [facility] Comment on above: Result Comment: Canc elled via OM: Order cancelled - Patient discharged Performed By: #### L 100.0100, L500.2500 ####[facility] [address] [place], [address] HGB Normal 13.0-16.5 [facility] Comment on above: Result Comment: Canc elled via OM: Order cancelled - Patient discharged Performed By: #### L 100.0100, L500.2500 ####[facility] [address] [place], [address] MCH Normal 27.0-32.0 [facility] Comment on above: Result Comment: Canc elled via OM: Order cancelled - Patient discharged Performed By: #### L 100.0100, L500.2500 ####[facility] [address] [place], [address] MCHC Normal 32-36 [facility] Comment on above: Result Comment: Canc elled via OM: Order cancelled - Patient discharged Performed By: #### L 100.0100, L500.2500 ####[facility] [address] [place], [address] MCV Normal 80-94 [facility] Comment on above: Result Comment: Canc elled via OM: Order cancelled - Patient discharged Performed By: #### L 100.0100, L500.2500 ####[facility] [address] [place], [address] NEUT% Normal 47-70 [facility] Comment on above: Result Comment: Canc elled via OM: Order cancelled - Patient discharged Performed By: #### L 100.0100, L500.2500 ####[facility] [address] [place], [address] PLT Normal 150-450 [facility] Comment on above: Result Comment: Canc elled via OM: Order cancelled - Patient discharged Performed By: #### L 100.0100, L500.2500 ####[facility] [address] [place], [address] RBC Normal 4.6-6.2 [facility] Comment on above: Result Comment: Canc elled via OM: Order cancelled - Patient discharged Performed By: #### L 100.0100, L500.2500 ####[facility] [address] [place], [address] RDW CV Normal 11.6-14.6 [facility] Comment on above: Result Comment: Canc elled via OM: Order cancelled - Patient discharged Performed By: #### L 100.0100, L500.2500 ####[facility] [address] [place], [address] RDW SD Normal 35.1-43.9 [facility] Comment on above: Result Comment: Canc elled via OM: Order cancelled - Patient discharged Performed By: #### L 100.0100, L500.2500 ####[facility] [address] [place], [address] WBC Normal 4.4-11.0 [facility] Comment on above: Result Comment: Canc elled via OM: Order cancelled - Patient discharged Performed By: #### L 100.0100, L500.2500 ####[facility] [address] [place], [address] Basic Metabolic Profile (BMP )on 03-06-2024 BUN Normal 7-18 [facility] Comment on above: Result Comment: Canc elled via OM: Order cancelled - Patient discharged Performed By: #### L 100.0100, L500.2500 ####[facility] [address] [place], [address] BUN/CRE Normal 10-20 [facility] Comment on above: Result Comment: Canc elled via OM: Order cancelled - Patient discharged Performed By: #### L 100.0100, L500.2500 ####[facility] [address] [place], [address] CA,Total Normal 8.5-10.1 [facility] Comment on above: Result Comment: Canc elled via OM: Order cancelled - Patient discharged Performed By: #### L 100.0100, L500.2500 ####[facility] [address] [place], [address] CL Normal 98-107 [facility] Comment on above: Result Comment: Canc elled via OM: Order cancelled - Patient discharged Performed By: #### L 100.0100, L500.2500 ####[facility] [address] [place], [address] CO2 Normal 21.0-32.0 [facility] Comment on above: Result Comment: Canc elled via OM: Order cancelled - Patient discharged Performed By: #### L 100.0100, L500.2500 ####[facility] [address] [place], [address] CREAT,SERUM Normal 0.70-1.30 [facility] Comment on above: Result Comment: Canc elled via OM: Order cancelled - Patient discharged Performed By: #### L 100.0100, L500.2500 ####[facility] [address] [place], [address] EST GFR Normal >60 [facility] Comment on above: Result Comment: Canc elled via OM: Order cancelled - Patient discharged Performed By: #### L 100.0100, L500.2500 ####[facility] [address] [place], [address] EST GFR - AA Normal >60 [facility] Comment on above: Result Comment: Canc elled via OM: Order cancelled - Patient discharged Performed By: #### L 100.0100, L500.2500 ####[facility] [address] [place], [address] GAP Normal 5-15 [facility] Comment on above: Result Comment: Canc elled via OM: Order cancelled - Patient discharged Performed By: #### L 100.0100, L500.2500 ####[facility] [address] [place], [address] GLU Normal 74-106 [facility] Comment on above: Result Comment: Canc elled via OM: Order cancelled - Patient discharged Performed By: #### L 100.0100, L500.2500 ####[facility] [address] [place], [address] Potassium Normal 3.5-5.1 [facility] Comment on above: Result Comment: Canc elled via OM: Order cancelled - Patient discharged Performed By: #### L 100.0100, L500.2500 ####[facility] [address] [place], [address] Basic Metabolic Profile (BMP) Normal 136-145 [facility] Comment on above: Result Comment: Canc elled via OM: Order cancelled - Patient discharged Performed By: #### L 100.0100, L500.2500 ####[facility] [address] [place], [address] CBC W/Diff, Automatedon 12-2 Absolute Neut Normal 2.0-7.7 [facility] Comment on above: Result Comment: Canc elled via OM: Order cancelled - Patient discharged Performed By: #### L 100.0100, L500.2500 ####[facility] [address] [place], [address] HCT Normal 40-54 [facility] Comment on above: Result Comment: Canc elled via OM: Order cancelled - Patient discharged Performed By: #### L 100.0100, L500.2500 ####[facility] [address] [place], [address] HGB Normal 13.0-16.5 [facility] Comment on above: Result Comment: Canc elled via OM: Order cancelled - Patient discharged Performed By: #### L 100.0100, L500.2500 ####[facility] [address] [place], [address] MCH Normal 27.0-32.0 [facility] Comment on above: Result Comment: Canc elled via OM: Order cancelled - Patient discharged Performed By: #### L 100.0100, L500.2500 ####[facility] [address] [place], [address] MCHC Normal 32-36 [facility] Comment on above: Result Comment: Canc elled via OM: Order cancelled - Patient discharged Performed By: #### L 100.0100, L500.2500 ####[facility] [address] [place], [address] MCV Normal 80-94 [facility] Comment on above: Result Comment: Canc elled via OM: Order cancelled - Patient discharged Performed By: #### L 100.0100, L500.2500 ####[facility] [address] [place], [address] NEUT% Normal 47-70 [facility] Comment on above: Result Comment: Canc elled via OM: Order cancelled - Patient discharged Performed By: #### L 100.0100, L500.2500 ####[facility] [address] [place], [address] PLT Normal 150-450 [facility] Comment on above: Result Comment: Canc elled via OM: Order cancelled - Patient discharged Performed By: #### L 100.0100, L500.2500 ####[facility] [address] [place], [address] RBC Normal 4.6-6.2 [facility] Comment on above: Result Comment: Canc elled via OM: Order cancelled - Patient discharged Performed By: #### L 100.0100, L500.2500 ####[facility] [address] [place], [address] RDW CV Normal 11.6-14.6 [facility] Comment on above: Result Comment: Canc elled via OM: Order cancelled - Patient discharged Performed By: #### L 100.0100, L500.2500 ####[facility] [address] [place], [address] RDW SD Normal 35.1-43.9 [facility] Comment on above: Result Comment: Canc elled via OM: Order cancelled - Patient discharged Performed By: #### L 100.0100, L500.2500 ####[facility] [address] [place], [address] WBC Normal 4.4-11.0 [facility] Comment on above: Result Comment: Canc elled via OM: Order cancelled - Patient discharged Performed By: #### L 100.0100, L500.2500 ####[facility] [address] [place], [address] Basic Metabolic Profile (BMP )on 03-05-2024 BUN Normal 7-18 [facility] Comment on above: Result Comment: Canc elled via OM: Order cancelled - Patient discharged Performed By: #### L 100.0100, L500.2500 ####[facility] [address] [place], [address] BUN/CRE Normal 10-20 [facility] Comment on above: Result Comment: Canc elled via OM: Order cancelled - Patient discharged Performed By: #### L 100.0100, L500.2500 ####[facility] [address] [place], [address] CA,Total Normal 8.5-10.1 [facility] Comment on above: Result Comment: Canc elled via OM: Order cancelled - Patient discharged Performed By: #### L 100.0100, L500.2500 ####[facility] [address] [place], [address] CL Normal 98-107 [facility] Comment on above: Result Comment: Canc elled via OM: Order cancelled - Patient discharged Performed By: #### L 100.0100, L500.2500 ####[facility] [address] [place], [address] CO2 Normal 21.0-32.0 [facility] Comment on above: Result Comment: Canc elled via OM: Order cancelled - Patient discharged Performed By: #### L 100.0100, L500.2500 ####[facility] [address] [place], [address] CREAT,SERUM Normal 0.70-1.30 [facility] Comment on above: Result Comment: Canc elled via OM: Order cancelled - Patient discharged Performed By: #### L 100.0100, L500.2500 ####[facility] [address] [place], [address] EST GFR Normal >60 [facility] Comment on above: Result Comment: Canc elled via OM: Order cancelled - Patient discharged Performed By: #### L 100.0100, L500.2500 ####[facility] [address] [place], [address] EST GFR - AA Normal >60 [facility] Comment on above: Result Comment: Canc elled via OM: Order cancelled - Patient discharged Performed By: #### L 100.0100, L500.2500 ####[facility] [address] [place], [address] GAP Normal 5-15 [facility] Comment on above: Result Comment: Canc elled via OM: Order cancelled - Patient discharged Performed By: #### L 100.0100, L500.2500 ####[facility] [address] [place], [address] GLU Normal 74-106 [facility] Comment on above: Result Comment: Canc elled via OM: Order cancelled - Patient discharged Performed By: #### L 100.0100, L500.2500 ####[facility] [address] [place], [address] Potassium Normal 3.5-5.1 [facility] Comment on above: Result Comment: Canc elled via OM: Order cancelled - Patient discharged Performed By: #### L 100.0100, L500.2500 ####[facility] [address] [place], [address] Basic Metabolic Profile (BMP) Normal 136-145 [facility] Comment on above: Result Comment: Canc elled via OM: Order cancelled - Patient discharged Performed By: #### L 100.0100, L500.2500 ####[facility] [address] [place], [address] CBC W/Diff, Automatedon 12-2 Absolute Neut Normal 2.0-7.7 [facility] Comment on above: Result Comment: Canc elled via OM: Order cancelled - Patient discharged Performed By: #### L 100.0100, L500.2500 ####[facility] [address] [place], [address] HCT Normal 40-54 [facility] Comment on above: Result Comment: Canc elled via OM: Order cancelled - Patient discharged Performed By: #### L 100.0100, L500.2500 ####[facility] [address] [place], [address] HGB Normal 13.0-16.5 [facility] Comment on above: Result Comment: Canc elled via OM: Order cancelled - Patient discharged Performed By: #### L 100.0100, L500.2500 ####[facility] [address] [place], [address] MCH Normal 27.0-32.0 [facility] Comment on above: Result Comment: Canc elled via OM: Order cancelled - Patient discharged Performed By: #### L 100.0100, L500.2500 ####[facility] [address] [place], [address] MCHC Normal 32-36 [facility] Comment on above: Result Comment: Canc elled via OM: Order cancelled - Patient discharged Performed By: #### L 100.0100, L500.2500 ####[facility] [address] [place], [address] MCV Normal 80-94 [facility] Comment on above: Result Comment: Canc elled via OM: Order cancelled - Patient discharged Performed By: #### L 100.0100, L500.2500 ####[facility] [address] [place], [address] NEUT% Normal 47-70 [facility] Comment on above: Result Comment: Canc elled via OM: Order cancelled - Patient discharged Performed By: #### L 100.0100, L500.2500 ####[facility] [address] [place], [address] PLT Normal 150-450 [facility] Comment on above: Result Comment: Canc elled via OM: Order cancelled - Patient discharged Performed By: #### L 100.0100, L500.2500 ####[facility] [address] [place], [address] RBC Normal 4.6-6.2 [facility] Comment on above: Result Comment: Canc elled via OM: Order cancelled - Patient discharged Performed By: #### L 100.0100, L500.2500 ####[facility] [address] [place], [address] RDW CV Normal 11.6-14.6 [facility] Comment on above: Result Comment: Canc elled via OM: Order cancelled - Patient discharged Performed By: #### L 100.0100, L500.2500 ####[facility] [address] [place], [address] RDW SD Normal 35.1-43.9 [facility] Comment on above: Result Comment: Canc elled via OM: Order cancelled - Patient discharged Performed By: #### L 100.0100, L500.2500 ####[facility] [address] [place], [address] WBC Normal 4.4-11.0 [facility] Comment on above: Result Comment: Canc elled via OM: Order cancelled - Patient discharged Performed By: #### L 100.0100, L500.2500 ####[facility] [address] [place], [address] Basic Metabolic Profile (BMP )on 03-04-2024 BUN Normal 7-18 [facility] Comment on above: Result Comment: Canc elled via OM: Order cancelled - Patient discharged Performed By: #### L 500.2500, L100.0100 ####[facility] [address] [place], [address] BUN/CRE Normal 10-20 [facility] Comment on above: Result Comment: Canc elled via OM: Order cancelled - Patient discharged Performed By: #### L 500.2500, L100.0100 ####[facility] [address] [place], [address] CA,Total Normal 8.5-10.1 [facility] Comment on above: Result Comment: Canc elled via OM: Order cancelled - Patient discharged Performed By: #### L 500.2500, L100.0100 ####[facility] [address] [place], [address] CL Normal 98-107 [facility] Comment on above: Result Comment: Canc elled via OM: Order cancelled - Patient discharged Performed By: #### L 500.2500, L100.0100 ####[facility] [address] [place], [address] CO2 Normal 21.0-32.0 [facility] Comment on above: Result Comment: Canc elled via OM: Order cancelled - Patient discharged Performed By: #### L 500.2500, L100.0100 ####[facility] [address] [place], [address] CREAT,SERUM Normal 0.70-1.30 [facility] Comment on above: Result Comment: Canc elled via OM: Order cancelled - Patient discharged Performed By: #### L 500.2500, L100.0100 ####[facility] [address] [place], [address] EST GFR Normal >60 [facility] Comment on above: Result Comment: Canc elled via OM: Order cancelled - Patient discharged Performed By: #### L 500.2500, L100.0100 ####[facility] [address] [place], [address] EST GFR - AA Normal >60 [facility] Comment on above: Result Comment: Canc elled via OM: Order cancelled - Patient discharged Performed By: #### L 500.2500, L100.0100 ####[facility] [address] [place], [address] GAP Normal 5-15 [facility] Comment on above: Result Comment: Canc elled via OM: Order cancelled - Patient discharged Performed By: #### L 500.2500, L100.0100 ####[facility] [address] [place], [address] GLU Normal 74-106 [facility] Comment on above: Result Comment: Canc elled via OM: Order cancelled - Patient discharged Performed By: #### L 500.2500, L100.0100 ####[facility] [address] [place], [address] Potassium Normal 3.5-5.1 [facility] Comment on above: Result Comment: Canc elled via OM: Order cancelled - Patient discharged Performed By: #### L 500.2500, L100.0100 ####[facility] [address] [place], [address] Basic Metabolic Profile (BMP) Normal 136-145 [facility] Comment on above: Result Comment: Canc elled via OM: Order cancelled - Patient discharged Performed By: #### L 500.2500, L100.0100 ####[facility] [address] [place], [address] CBC W/Diff, Automatedon 12-2 Absolute Neut Normal 2.0-7.7 [facility] Comment on above: Result Comment: Canc elled via OM: Order cancelled - Patient discharged Performed By: #### L 500.2500, L100.0100 ####[facility] [address] [place], [address] HCT Normal 40-54 [facility] Comment on above: Result Comment: Canc elled via OM: Order cancelled - Patient discharged Performed By: #### L 500.2500, L100.0100 ####[facility] [address] [place], [address] HGB Normal 13.0-16.5 [facility] Comment on above: Result Comment: Canc elled via OM: Order cancelled - Patient discharged Performed By: #### L 500.2500, L100.0100 ####[facility] [address] [place], [address] MCH Normal 27.0-32.0 [facility] Comment on above: Result Comment: Canc elled via OM: Order cancelled - Patient discharged Performed By: #### L 500.2500, L100.0100 ####[facility] [address] [place], [address] MCHC Normal 32-36 [facility] Comment on above: Result Comment: Canc elled via OM: Order cancelled - Patient discharged Performed By: #### L 500.2500, L100.0100 ####[facility] [address] [place], [address] MCV Normal 80-94 [facility] Comment on above: Result Comment: Canc elled via OM: Order cancelled - Patient discharged Performed By: #### L 500.2500, L100.0100 ####[facility] [address] [place], [address] NEUT% Normal 47-70 [facility] Comment on above: Result Comment: Canc elled via OM: Order cancelled - Patient discharged Performed By: #### L 500.2500, L100.0100 ####[facility] [address] [place], [address] PLT Normal 150-450 [facility] Comment on above: Result Comment: Canc elled via OM: Order cancelled - Patient discharged Performed By: #### L 500.2500, L100.0100 ####[facility] [address] [place], [address] RBC Normal 4.6-6.2 [facility] Comment on above: Result Comment: Canc elled via OM: Order cancelled - Patient discharged Performed By: #### L 500.2500, L100.0100 ####[facility] [address] [place], [address] RDW CV Normal 11.6-14.6 [facility] Comment on above: Result Comment: Canc elled via OM: Order cancelled - Patient discharged Performed By: #### L 500.2500, L100.0100 ####[facility] [address] [place], [address] RDW SD Normal 35.1-43.9 [facility] Comment on above: Result Comment: Canc elled via OM: Order cancelled - Patient discharged Performed By: #### L 500.2500, L100.0100 ####[facility] [address] [place], [address] WBC Normal 4.4-11.0 [facility] Comment on above: Result Comment: Canc elled via OM: Order cancelled - Patient discharged Performed By: #### L 500.2500, L100.0100 ####[facility] [address] [place], [address] Basic Metabolic Profile (BMP )on 03-03-2024 BUN Normal 7-18 [facility] Comment on above: Result Comment: Canc elled via OM: Order cancelled - Patient discharged Performed By: #### L 500.2500, L100.0100 ####[facility] [address] [place], [address] BUN/CRE Normal 10-20 [facility] Comment on above: Result Comment: Canc elled via OM: Order cancelled - Patient discharged Performed By: #### L 500.2500, L100.0100 ####[facility] [address] [place], [address] CA,Total Normal 8.5-10.1 [facility] Comment on above: Result Comment: Canc elled via OM: Order cancelled - Patient discharged Performed By: #### L 500.2500, L100.0100 ####[facility] [address] [place], [address] CL Normal 98-107 [facility] Comment on above: Result Comment: Canc elled via OM: Order cancelled - Patient discharged Performed By: #### L 500.2500, L100.0100 ####[facility] [address] [place], [address] CO2 Normal 21.0-32.0 [facility] Comment on above: Result Comment: Canc elled via OM: Order cancelled - Patient discharged Performed By: #### L 500.2500, L100.0100 ####[facility] [address] [place], [address] CREAT,SERUM Normal 0.70-1.30 [facility] Comment on above: Result Comment: Canc elled via OM: Order cancelled - Patient discharged Performed By: #### L 500.2500, L100.0100 ####[facility] [address] [place], [address] EST GFR Normal >60 [facility] Comment on above: Result Comment: Canc elled via OM: Order cancelled - Patient discharged Performed By: #### L 500.2500, L100.0100 ####[facility] [address] [place], [address] EST GFR - AA Normal >60 [facility] Comment on above: Result Comment: Canc elled via OM: Order cancelled - Patient discharged Performed By: #### L 500.2500, L100.0100 ####[facility] [address] [place], [address] GAP Normal 5-15 [facility] Comment on above: Result Comment: Canc elled via OM: Order cancelled - Patient discharged Performed By: #### L 500.2500, L100.0100 ####[facility] [address] [place], [address] GLU Normal 74-106 [facility] Comment on above: Result Comment: Canc elled via OM: Order cancelled - Patient discharged Performed By: #### L 500.2500, L100.0100 ####[facility] [address] [place], [address] Potassium Normal 3.5-5.1 [facility] Comment on above: Result Comment: Canc elled via OM: Order cancelled - Patient discharged Performed By: #### L 500.2500, L100.0100 ####[facility] [address] [place], [address] Basic Metabolic Profile (BMP) Normal 136-145 [facility] Comment on above: Result Comment: Canc elled via OM: Order cancelled - Patient discharged Performed By: #### L 500.2500, L100.0100 ####[facility] [address] [place], [address] CBC W/Diff, Automatedon 12-2 Absolute Neut Normal 2.0-7.7 [facility] Comment on above: Result Comment: Canc elled via OM: Order cancelled - Patient discharged Performed By: #### L 500.2500, L100.0100 ####[facility] [address] [place], [address] HCT Normal 40-54 [facility] Comment on above: Result Comment: Canc elled via OM: Order cancelled - Patient discharged Performed By: #### L 500.2500, L100.0100 ####[facility] [address] [place], [address] HGB Normal 13.0-16.5 [facility] Comment on above: Result Comment: Canc elled via OM: Order cancelled - Patient discharged Performed By: #### L 500.2500, L100.0100 ####[facility] [address] [place], [address] MCH Normal 27.0-32.0 [facility] Comment on above: Result Comment: Canc elled via OM: Order cancelled - Patient discharged Performed By: #### L 500.2500, L100.0100 ####[facility] [address] [place], [address] MCHC Normal 32-36 [facility] Comment on above: Result Comment: Canc elled via OM: Order cancelled - Patient discharged Performed By: #### L 500.2500, L100.0100 ####[facility] [address] [place], [address] MCV Normal 80-94 [facility] Comment on above: Result Comment: Canc elled via OM: Order cancelled - Patient discharged Performed By: #### L 500.2500, L100.0100 ####[facility] [address] [place], [address] NEUT% Normal 47-70 [facility] Comment on above: Result Comment: Canc elled via OM: Order cancelled - Patient discharged Performed By: #### L 500.2500, L100.0100 ####[facility] [address] [place], [address] PLT Normal 150-450 [facility] Comment on above: Result Comment: Canc elled via OM: Order cancelled - Patient discharged Performed By: #### L 500.2500, L100.0100 ####[facility] [address] [place], [address] RBC Normal 4.6-6.2 [facility] Comment on above: Result Comment: Canc elled via OM: Order cancelled - Patient discharged Performed By: #### L 500.2500, L100.0100 ####[facility] [address] [place], [address] RDW CV Normal 11.6-14.6 [facility] Comment on above: Result Comment: Canc elled via OM: Order cancelled - Patient discharged Performed By: #### L 500.2500, L100.0100 ####[facility] [address] [place], [address] RDW SD Normal 35.1-43.9 [facility] Comment on above: Result Comment: Canc elled via OM: Order cancelled - Patient discharged Performed By: #### L 500.2500, L100.0100 ####[facility] [address] [place], [address] WBC Normal 4.4-11.0 [facility] Comment on above: Result Comment: Canc elled via OM: Order cancelled - Patient discharged Performed By: #### L 500.2500, L100.0100 ####[facility] [address] [place], [address] Absolute neutrophil countOrd ered By: Sarai Alcantara on 03-02-2024 Neutrophils (Bld) [#/Vol] 2.6 10*3/uL 2.0-7.7 [facility] Basic Metabolic Profile (BMP )on 03-02-2024 BUN/CRE 29.1 RATIO High 10-20 [facility] Comment on above: Performed By: #### L 100.0100, L500.2500 ####[facility] [address] [place], [address] CA,Total 9.2 mg/dL Normal 8.5-10.1 [facility] Comment on above: Performed By: #### L 100.0100, L500.2500 ####[facility] [address] [place], [address] Chloride [Moles/Vol] 106 mmol/L Normal 98-107 [facility] Comment on above: Performed By: #### L 100.0100, L500.2500 ####[facility] [address] [place], [address] CO2 [Moles/Vol] 29.0 mmol/L Normal 21.0-32.0 [facility] Comment on above: Performed By: #### L 100.0100, L500.2500 ####[facility] [address] [place], [address] Creatinine [Mass/Vol] 2.54 mg/dL High 0.70-1.30 [facility] Comment on above: Result Comment: The validity of the calculated GFR GFRAA in patients over70 years has not been determined. Clinical correlation isessential. Performed By: #### L 100.0100, L500.2500 ####[facility] [address] [place], [address] ECRCL 21.53 ml/min Normal [facility] Comment on above: Performed By: #### L 100.0100, L500.2500 ####[facility] [address] [place], [address] EST GFR - AA 31 mL/min Low >60 [facility] Comment on above: Result Comment: Afri can Guyanese GFR Calc Performed By: #### L 100.0100, L500.2500 ####[facility] [address] [place], [address] GAP 5 Normal 5-15 [facility] Comment on above: Performed By: #### L 100.0100, L500.2500 ####[facility] [address] [place], [address] GFR/1.73 sq M.predicted among non-blacks MDRD (S/P/Bld) [Vol rate/Area] 26 mL/min/{1.73_m2} Low >60 [facility] Comment on above: Result Comment: Non- GFR Calc Performed By: #### L 100.0100, L500.2500 ####[facility] [address] [place], [address] Glucose [Mass/Vol] 156 mg/dL High 74-106 [facility] Comment on above: Result Comment: Fast ing Glucose result greater than or equal to 126 mg/dLsuggests DIABETES MELLITUS per A.D.A. criteria. Performed By: #### L 100.0100, L500.2500 ####[facility] [address] [place], [address] Potassium [Moles/Vol] 4.7 mmol/L Normal 3.5-5.1 [facility] Comment on above: Performed By: #### L 100.0100, L500.2500 ####[facility] [address] [place], [address] Sodium [Moles/Vol] 140 mmol/L Normal 136-145 [facility] Comment on above: Performed By: #### L 100.0100, L500.2500 ####[facility] [address] [place], [address] Urea nitrogen [Mass/Vol] 74 mg/dL High 7-18 [facility] Comment on above: Performed By: #### L 100.0100, L500.2500 ####[facility] [address] [place], [address] Basophil percentageOrdered B y: Sarai Alcantara on 03-02-2024 Basophils/100 WBC (Bld) 0.4 % 0-1 [facility] Bedside Glucoseon 03-02-2024 FINGERSTICK GLU 157 mg/dL High 74-106 [facility] Comment on above: Result Comment: MYKE GEMENT OF PATIENT CARE PER NURSING PROTOCOL Performed By: #### L 501.080 ####[facility] [address] [place], [address] FINGERSTICK GLU 136 mg/dL High 74-106 [facility] Comment on above: Result Comment: MYKE GEMENT OF PATIENT CARE PER NURSING PROTOCOL Performed By: #### L 501.080 ####[facility] [address] [place], [address] FINGERSTICK GLU 157 mg/dL High 74-106 [facility] Comment on above: Result Comment: MYKE GEMENT OF PATIENT CARE PER NURSING PROTOCOL Performed By: #### L 501.080 ####[facility] [address] [place], [address] Blood urea nitrogen (BUN)/cr eatinine ratioOrdered By: Sarai Alcantara on 03-02-2024 Urea nitrogen/Creatinine [Mass ratio] 29.1 mg/mg High 10-20 [facility] CBC W/Diff, Automatedon -2 Absolute Lymph 1.17 X10 3/uL Normal 0.83-4.51 [facility] Comment on above: Performed By: #### L 100.0100, L500.2500 ####[facility] [address] [place], [address] Absolute Neut 2.6 X10 3/uL Normal 2.0-7.7 [facility] Comment on above: Performed By: #### L 100.0100, L500.2500 ####[facility] [address] [place], [address] Basophils/100 WBC (Bld) 0.4 % Normal 0-1 [facility] Comment on above: Performed By: #### L 100.0100, L500.2500 ####[facility] [address] [place], [address] Eosinophils/100 WBC (Bld) 6.3 % High 0-5 [facility] Comment on above: Performed By: #### L 100.0100, L500.2500 ####[facility] [address] [place], [address] Erythrocyte distribution width (RBC) [Ratio] 15.8 % High 11.6-14.6 [facility] Comment on above: Performed By: #### L 100.0100, L500.2500 ####[facility] [address] [place], [address] Hematocrit (Bld) [Volume fraction] 26.5 % Low 40-54 [facility] Comment on above: Performed By: #### L 100.0100, L500.2500 ####[facility] [address] [place], [address] Hemoglobin (Bld) [Mass/Vol] 8.2 g/dL Low 13.0-16.5 [facility] Comment on above: Performed By: #### L 100.0100, L500.2500 ####[facility] [address] [place], [address] IG% 0.700 Normal 0.0-0.9 [facility] Comment on above: Result Comment: IG% - Immature Granulocytes (promyelocytes, myelocytes andmetamyelocytes) > 1% indicates that a LEFT SHIFT is Present. Performed By: #### L 100.0100, L500.2500 ####[facility] [address] [place], [address] Lymphocytes/100 WBC (Bld) 25.5 % Normal 19-41 [facility] Comment on above: Performed By: #### L 100.0100, L500.2500 ####[facility] [address] [place], [address] MCH (RBC) [Entitic mass] 30.7 pg Normal 27.0-32.0 [facility] Comment on above: Performed By: #### L 100.0100, L500.2500 ####[facility] [address] [place], [address] MCHC (RBC) [Mass/Vol] 30.9 g/dL Low 32-36 [facility] Comment on above: Performed By: #### L 100.0100, L500.2500 ####[facility] [address] [place], [address] MCV (RBC) [Entitic vol] 99.3 fL High 80-94 [facility] Comment on above: Performed By: #### L 100.0100, L500.2500 ####[facility] [address] [place], [address] Monocytes/100 WBC (Bld) 10.0 % Normal 0-10 [facility] Comment on above: Performed By: #### L 100.0100, L500.2500 ####[facility] [address] [place], [address] Neutrophils/100 WBC (Bld) 57.1 % Normal 47-70 [facility] Comment on above: Performed By: #### L 100.0100, L500.2500 ####[facility] [address] [place], [address] Nucleated RBC (Bld) [#/Vol] 0 10*3/uL Normal 0-5 [facility] Comment on above: Performed By: #### L 100.0100, L500.2500 ####[facility] [address] [place], [address] Platelet mean volume (Bld) [Entitic vol] 10.2 fL Normal 6.2-12.0 [facility] Comment on above: Performed By: #### L 100.0100, L500.2500 ####[facility] [address] [place], [address] Platelets (Bld) [#/Vol] 142 10*3/uL Low 150-450 [facility] Comment on above: Performed By: #### L 100.0100, L500.2500 ####[facility] [address] [place], [address] RBC (Bld) [#/Vol] 2.67 10*6/uL Low 4.6-6.2 [facility] Comment on above: Performed By: #### L 100.0100, L500.2500 ####[facility] [address] [place], [address] RDW SD 56.8 fl High 35.1-43.9 [facility] Comment on above: Performed By: #### L 100.0100, L500.2500 ####[facility] [address] [place], [address] WBC (Bld) [#/Vol] 4.6 10*3/uL Normal 4.4-11.0 [facility] Comment on above: Performed By: #### L 100.0100, L500.2500 ####[facility] [address] [place], [address] Carbon dioxide measurementOr dered By: Sarai Alcantara on 03-02-2024 CO2 [Moles/Vol] 29.0 mmol/L 21.0-32.0 [facility] Chloride measurementOrdered By: Sarai Alcantara on 03-02-2024 Chloride [Moles/Vol] 106 mmol/L 98-107 [facility] Discharge Instructionon 02-10 Discharge Instruction Normal [facility] Eosinophil percentageOrdered By: Sarai Alcantara on 03-02-2024 Eosinophils/100 WBC (Bld) 6.3 % High 0-5 [facility] Erythrocyte distribution wid th (RBC) [Ratio]Ordered By: Sarai Alcantara on 03-02-2024 Erythrocyte distribution width (RBC) [Entitic vol] 56.8 fL High 35.1-43.9 [facility] Erythrocyte distribution wid th ratioOrdered By: Sarai Alcantara on 03-02-2024 Erythrocyte distribution width (RBC) [Ratio] 15.8 % High 11.6-14.6 [facility] Estimated glomerular filtrat ion rate (GFR) AmericanOrdered By: Sarai Alcantara on 03-02-2024 Estimated GFR (MDRD) Amer 31 mL/min Low >60 [facility] Comment on above: GFR Calc Estimation of creatinine timur aranceOrdered By: Sarai Alcantara on 03-02-2024 Estimated Creatinine Clearance Calc 21.53 ml/min [facility] Glomerular filtration rate ( GFR) estimationOrdered By: Sarai Alcantara on 03-02-2024 Estimated GFR (MDRD) Non-Af Amer 26 mL/min Low >60 [facility] Comment on above: Non- GFR Calc Glucose measurementOrdered B y: Sarai Alcantara on 03-02-2024 Glucose [Mass/Vol] 156 mg/dL High 74-106 [facility] Comment on above: Fasting Glucose resu lt greater than or equal to 126 mg/dL suggests DIABETES MELLITUS per A.D.A. criteria. Glucose measurement at bedsi deOrdered By: Sarai Alcantara on 03-02-2024 Bedside Glucose (Misc Panel) 157 mg/dL High 74-106 [facility] Comment on above: MANAGEMENT OF PATIEN T CARE PER NURSING PROTOCOL Hematocrit Auto (Bld) [Volum e fraction]Ordered By: Sarai Alcantara on 03-02-2024 Hematocrit (Bld) [Volume fraction] 26.5 % Low 40-54 [facility] Hemoglobin measurementOrdere d By: Sarai Alcantara on 03-02-2024 Hemoglobin (Bld) [Mass/Vol] 8.2 g/dL Low 13.0-16.5 [facility] Immature granulocytes/100 WB C Auto (Bld)Ordered By: Sarai Alcantara on 03-02-2024 Immature granulocytes/100 WBC (Bld) 0.700 % 0.0-0.9 [facility] Comment on above: IG% - Immature Granu locytes (promyelocytes, myelocytes and metamyelocytes) > 1% indicates that a LEFT SHIFT is Present. Lymphocytes Auto (Unsp spec) [#/Vol]Ordered By: Sarai Alcantara on 03-02-2024 Lymphocytes (Bld) [#/Vol] 1.17 10*3/uL 0.83-4.51 [facility] Lymphocytes/100 WBC Auto (Un sp spec)Ordered By: Sarai Alcantara on 03-02-2024 Lymphocytes/100 WBC (Bld) 25.5 % 19-41 [facility] MCV (mean corpuscular volume ) determinationOrdered By: Sarai Alcantara on 03-02-2024 MCV (RBC) [Entitic vol] 99.3 fL High 80-94 [facility] Mean corpuscular hemoglobin (MCH) determinationOrdered By: Sarai Alcantara on 03-02-2024 MCH (RBC) [Entitic mass] 30.7 pg 27.0-32.0 [facility] Mean corpuscular hemoglobin concentration (MCHC) determinationOrdered By: Sarai Alcantara on 03-02-2024 MCHC (RBC) [Mass/Vol] 30.9 g/dL Low 32-36 [facility] Mean platelet volume determi nationOrdered By: Sraai Alcantara on 03-02-2024 Platelet mean volume (Bld) [Entitic vol] 10.2 fL 6.2-12.0 [facility] Monocyte percentageOrdered B y: Sarai Alcantara on 03-02-2024 Monocytes/100 WBC (Bld) 10.0 % 0-10 [facility] Neutrophil percentageOrdered By: Sarai Alcantara on 03-02-2024 Neutrophils/100 WBC (Bld) 57.1 % 47-70 [facility] Nucleated red blood cell per centageOrdered By: Sarai Alcantara on 03-02-2024 Nucleated RBC/100 WBC (Bld) [Ratio] 0 % 0-5 [facility] Platelet countOrdered By: Na na Quinton on 03-02-2024 Platelets (Bld) [#/Vol] 142 10*3/uL Low 150-450 [facility] Potassium measurementOrdered By: Sarai Alcantara on 03-02-2024 Potassium [Moles/Vol] 4.7 mmol/L 3.5-5.1 [facility] RBC Auto (Bld) [#/Vol]Ordere d By: Sarai Alcantara on 03-02-2024 RBC (Bld) [#/Vol] 2.67 10*6/uL Low 4.6-6.2 [facility] Serum anion gap measurementO rdered By: Sarai Alcantara on 03-02-2024 Anion gap [Moles/Vol] 5 mmol/L 5-15 [facility] Serum or plasma calcium elmira urement (mass/volume)Ordered By: Sarai Alcantara on 03-02-2024 Calcium [Mass/Vol] 9.2 mg/dL 8.5-10.1 [facility] Serum or plasma creatinine m easurement (mass/volume)Ordered By: Sarai Alcantara on 03-02-2024 Creatinine [Mass/Vol] 2.54 mg/dL High 0.70-1.30 [facility] Comment on above: The validity of the calculated GFR & GFRAA in patients over 70 years has not been determined. Clinical correlation is essential. Serum or plasma urea nitroge n measurement (mass/volume)Ordered By: Sarai Alcantara on 03-02-2024 Urea nitrogen [Mass/Vol] 74 mg/dL High 7-18 [facility] Sodium levelOrdered By: Sarai Alcantara on 03-02-2024 Sodium [Moles/Vol] 140 mmol/L 136-145 [facility] White blood cell (WBC) count Ordered By: Sarai Alcantara on 03-02-2024 WBC (Bld) [#/Vol] 4.6 10*3/uL 4.4-11.0 [facility] AST(SGOT)on 03-01-2024 AST [Catalytic activity/Vol] 15 U/L Normal 15-37 [facility] Comment on above: Performed By: #### L 501.4100, L300.3900, L300.4310 ####[facility] [address] [place], [address] Alanine Aminotransferas (SGP T)on 03-01-2024 ALT [Catalytic activity/Vol] 21 U/L Normal 16-61 [facility] Comment on above: Performed By: #### L 500.2500, L100.0100, L501.4405, L501.9520 ####[facility] [address] [place], [address] Basic Metabolic Profile (BMP )on 03-01-2024 BUN/CRE 25.2 RATIO High 10-20 [facility] Comment on above: Performed By: #### L 500.2500, L100.0100, L501.4405, L501.9520 ####[facility] [address] [place], [address] CA,Total 9.1 mg/dL Normal 8.5-10.1 [facility] Comment on above: Performed By: #### L 500.2500, L100.0100, L501.4405, L501.9520 ####[facility] [address] [place], [address] Chloride [Moles/Vol] 106 mmol/L Normal 98-107 [facility] Comment on above: Performed By: #### L 500.2500, L100.0100, L501.4405, L501.9520 ####[facility] [address] [place], [address] CO2 [Moles/Vol] 29.0 mmol/L Normal 21.0-32.0 [facility] Comment on above: Performed By: #### L 500.2500, L100.0100, L501.4405, L501.9520 ####[facility] [address] [place], [address] Creatinine [Mass/Vol] 2.78 mg/dL High 0.70-1.30 [facility] Comment on above: Result Comment: The validity of the calculated GFR GFRAA in patients over70 years has not been determined. Clinical correlation isessential. Performed By: #### L 500.2500, L100.0100, L501.4405, L501.9520 ####[facility] [address] [place], [address] ECRCL 19.67 ml/min Normal [facility] Comment on above: Performed By: #### L 500.2500, L100.0100, L501.4405, L501.9520 ####[facility] [address] [place], [address] EST GFR - AA 28 mL/min Low >60 [facility] Comment on above: Result Comment: Afri can Guyanese GFR Calc Performed By: #### L 500.2500, L100.0100, L501.4405, L501.9520 ####[facility] [address] [place], [address] GAP 6 Normal 5-15 [facility] Comment on above: Performed By: #### L 500.2500, L100.0100, L501.4405, L501.9520 ####[facility] [address] [place], [address] GFR/1.73 sq M.predicted among non-blacks MDRD (S/P/Bld) [Vol rate/Area] 23 mL/min/{1.73_m2} Low >60 [facility] Comment on above: Result Comment: Non- GFR Calc Performed By: #### L 500.2500, L100.0100, L501.4405, L501.9520 ####[facility] [address] [place], [address] Glucose [Mass/Vol] 158 mg/dL High 74-106 [facility] Comment on above: Result Comment: Fast ing Glucose result greater than or equal to 126 mg/dLsuggests DIABETES MELLITUS per A.D.A. criteria. Performed By: #### L 500.2500, L100.0100, L501.4405, L501.9520 ####[facility] [address] [place], [address] Potassium [Moles/Vol] 4.5 mmol/L Normal 3.5-5.1 [facility] Comment on above: Performed By: #### L 500.2500, L100.0100, L501.4405, L501.9520 ####[facility] [address] [place], [address] Sodium [Moles/Vol] 140 mmol/L Normal 136-145 [facility] Comment on above: Performed By: #### L 500.2500, L100.0100, L501.4405, L501.9520 ####[facility] [address] [place], [address] Urea nitrogen [Mass/Vol] 70 mg/dL High 7-18 [facility] Comment on above: Performed By: #### L 500.2500, L100.0100, L501.4405, L501.9520 ####[facility] [address] [place], [address] Bedside Glucoseon 03-01-2024 FINGERSTICK GLU 217 mg/dL High 74-106 [facility] Comment on above: Result Comment: MYKE GEMENT OF PATIENT CARE PER NURSING PROTOCOL Performed By: #### L 501.080 ####[facility] [address] [place], [address] FINGERSTICK GLU 160 mg/dL High 74-106 [facility] Comment on above: Result Comment: MYKE GEMENT OF PATIENT CARE PER NURSING PROTOCOL Performed By: #### L 501.080 ####[facility] [address] [place], [address] FINGERSTICK GLU 145 mg/dL High 74-106 [facility] Comment on above: Result Comment: MYKE SAGE OF PATIENT CARE PER NURSING PROTOCOL Performed By: #### L 501.080 ####[facility] [address] [place], [address] CBC W/Diff, Automatedon 12-2 Absolute Lymph 1.11 X10 3/uL Normal 0.83-4.51 [facility] Comment on above: Performed By: #### L 500.2500, L100.0100, L501.4405, L501.9520 ####[facility] [address] [place], [address] Absolute Neut 2.1 X10 3/uL Normal 2.0-7.7 [facility] Comment on above: Performed By: #### L 500.2500, L100.0100, L501.4405, L501.9520 ####[facility] [address] [place], [address] Basophils/100 WBC (Bld) 0.8 % Normal 0-1 [facility] Comment on above: Performed By: #### L 500.2500, L100.0100, L501.4405, L501.9520 ####[facility] [address] [place], [address] Eosinophils/100 WBC (Bld) 7.0 % High 0-5 [facility] Comment on above: Performed By: #### L 500.2500, L100.0100, L501.4405, L501.9520 ####[facility] [address] [place], [address] Erythrocyte distribution width (RBC) [Ratio] 16.1 % High 11.6-14.6 [facility] Comment on above: Performed By: #### L 500.2500, L100.0100, L501.4405, L501.9520 ####[facility] [address] [place], [address] Hematocrit (Bld) [Volume fraction] 24.8 % Low 40-54 [facility] Comment on above: Performed By: #### L 500.2500, L100.0100, L501.4405, L501.9520 ####[facility] [address] [place], [address] Hemoglobin (Bld) [Mass/Vol] 8.0 g/dL Low 13.0-16.5 [facility] Comment on above: Performed By: #### L 500.2500, L100.0100, L501.4405, L501.9520 ####[facility] [address] [place], [address] IG% 1.000 High 0.0-0.9 [facility] Comment on above: Result Comment: IG% - Immature Granulocytes (promyelocytes, myelocytes andmetamyelocytes) > 1% indicates that a LEFT SHIFT is Present. Performed By: #### L 500.2500, L100.0100, L501.4405, L501.9520 ####[facility] [address] [place], [address] Lymphocytes/100 WBC (Bld) 27.8 % Normal 19-41 [facility] Comment on above: Performed By: #### L 500.2500, L100.0100, L501.4405, L501.9520 ####[facility] [address] [place], [address] MCH (RBC) [Entitic mass] 31.6 pg Normal 27.0-32.0 [facility] Comment on above: Performed By: #### L 500.2500, L100.0100, L501.4405, L501.9520 ####[facility] [address] [place], [address] MCHC (RBC) [Mass/Vol] 32.3 g/dL Normal 32-36 [facility] Comment on above: Performed By: #### L 500.2500, L100.0100, L501.4405, L501.9520 ####[facility] [address] [place], [address] MCV (RBC) [Entitic vol] 98.0 fL High 80-94 [facility] Comment on above: Performed By: #### L 500.2500, L100.0100, L501.4405, L501.9520 ####[facility] [address] [place], [address] Monocytes/100 WBC (Bld) 12.0 % High 0-10 [facility] Comment on above: Performed By: #### L 500.2500, L100.0100, L501.4405, L501.9520 ####[facility] [address] [place], [address] Neutrophils/100 WBC (Bld) 51.4 % Normal 47-70 [facility] Comment on above: Performed By: #### L 500.2500, L100.0100, L501.4405, L501.9520 ####[facility] [address] [place], [address] Nucleated RBC (Bld) [#/Vol] 0 10*3/uL Normal 0-5 [facility] Comment on above: Performed By: #### L 500.2500, L100.0100, L501.4405, L501.9520 ####[facility] [address] [place], [address] Platelet mean volume (Bld) [Entitic vol] 10.4 fL Normal 6.2-12.0 [facility] Comment on above: Performed By: #### L 500.2500, L100.0100, L501.4405, L501.9520 ####[facility] [address] [place], [address] Platelets (Bld) [#/Vol] 134 10*3/uL Low 150-450 [facility] Comment on above: Performed By: #### L 500.2500, L100.0100, L501.4405, L501.9520 ####[facility] [address] [place], [address] RBC (Bld) [#/Vol] 2.53 10*6/uL Low 4.6-6.2 [facility] Comment on above: Performed By: #### L 500.2500, L100.0100, L501.4405, L501.9520 ####[facility] [address] [place], [address] RDW SD 57.1 fl High 35.1-43.9 [facility] Comment on above: Performed By: #### L 500.2500, L100.0100, L501.4405, L501.9520 ####[facility] [address] [place], [address] WBC (Bld) [#/Vol] 4.0 10*3/uL Low 4.4-11.0 [facility] Comment on above: Performed By: #### L 500.2500, L100.0100, L501.4405, L501.9520 ####[facility] [address] [place], [address] EGD Reporton 03-01-2024 EGD Report Normal [facility] International normalized rat io (INR) calculationOrdered By: Eyal Meraz on 03-01-2024 INR Coag (Bld) [Relative time] 1.2 {INR} [facility] Laboratory - Chemistry and C hemistry - challengeOrdered By: Eyal Meraz on 03-01-2024 AST [Catalytic activity/Vol] 15 U/L 15-37 [facility] MR/POSTOP.ANEon 03-01-2024 MR/POSTOP.ANE Normal [facility] MR/FSJDLRGN0au 03-01-2024 MR/POSTOPAN2 Normal [facility] Partial Thromboplast Timeon 03-01-2024 aPTT Coag (Bld) [Time] 29.4 s Normal 24.1-36.2 [facility] Comment on above: Performed By: #### L 501.4100, L300.3900, L300.4310 ####[facility] [address] [place], [address] Prothrombin Time w/INRon INR Coag (PPP) [Relative time] 1.2 {INR} Normal [facility] Comment on above: Performed By: #### L 501.4100, L300.3900, L300.4310 ####[facility] [address] [place], [address] PT Coag (PPP) [Time] 15.4 s High 11.7-14.9 [facility] Comment on above: Performed By: #### L 501.4100, L300.3900, L300.4310 ####[facility] [address] [place], [address] Prothrombin timeOrdered By: Eyal Meraz on 03-01-2024 PT Coag (PPP) [Time] 15.4 s High 11.7-14.9 [facility] Serum or plasma alanine duque otransferase (ALT) measurementOrdered By: Eyal Meraz on 03-01-2024 ALT [Catalytic activity/Vol] 21 U/L 16-61 [facility] TSH QnOrdered By: Eyal persaud on 03-01-2024 Thyroid Stimulating Hormone (TSH) 1.620 uIU/mL 0.358-3.740 [facility] Thyroid Stim Hormone (TSH)on 03-01-2024 TSH 1.620 uIU/mL Normal 0.358-3.740 [facility] Comment on above: Performed By: #### L 500.2500, L100.0100, L501.4405, L501.9520 ####[facility] [address] [place], [address] aPTT Coag (PPP) [Time]Ordere d By: Eyal Meraz on 03-01-2024 aPTT Coag (Bld) [Time] 29.4 s 24.1-36.2 [facility] Basic Metabolic Profile (BMP )on 02-29-2024 BUN/CRE 22.6 RATIO High 12-29 [facility] Comment on above: Performed By: #### L 100.0100, L500.2500 ####[facility] [address] [place], [address] CA,Total 9.1 mg/dL Normal 8.5-10.1 [facility] Comment on above: Performed By: #### L 100.0100, L500.2500 ####[facility] [address] [place], [address] Chloride [Moles/Vol] 104 mmol/L Normal 98-107 [facility] Comment on above: Performed By: #### L 100.0100, L500.2500 ####[facility] [address] [place], [address] CO2 [Moles/Vol] 28.0 mmol/L Normal 21.0-32.0 [facility] Comment on above: Performed By: #### L 100.0100, L500.2500 ####[facility] [address] [place], [address] Creatinine [Mass/Vol] 2.61 mg/dL High 0.70-1.30 [facility] Comment on above: Result Comment: The validity of the calculated GFR GFRAA in patients over70 years has not been determined. Clinical correlation isessential. Performed By: #### L 100.0100, L500.2500 ####[facility] [address] [place], [address] ECRCL 20.94 ml/min Normal [facility] Comment on above: Performed By: #### L 100.0100, L500.2500 ####[facility] [address] [place], [address] EST GFR - AA 30 mL/min Low >60 [facility] Comment on above: Result Comment: Afri can Guyanese GFR Calc Performed By: #### L 100.0100, L500.2500 ####[facility] [address] [place], [address] GAP 7 Normal 5-15 [facility] Comment on above: Performed By: #### L 100.0100, L500.2500 ####[facility] [address] [place], [address] GFR/1.73 sq M.predicted among non-blacks MDRD (S/P/Bld) [Vol rate/Area] 25 mL/min/{1.73_m2} Low >60 [facility] Comment on above: Result Comment: Non- GFR Calc Performed By: #### L 100.0100, L500.2500 ####[facility] [address] [place], [address] Glucose [Mass/Vol] 155 mg/dL High 74-106 [facility] Comment on above: Result Comment: Fast ing Glucose result greater than or equal to 126 mg/dLsuggests DIABETES MELLITUS per A.D.A. criteria. Performed By: #### L 100.0100, L500.2500 ####[facility] [address] [place], [address] Potassium [Moles/Vol] 4.3 mmol/L Normal 3.5-5.1 [facility] Comment on above: Performed By: #### L 100.0100, L500.2500 ####[facility] [address] [place], [address] Sodium [Moles/Vol] 139 mmol/L Normal 136-145 [facility] Comment on above: Performed By: #### L 100.0100, L500.2500 ####[facility] [address] [place], [address] Urea nitrogen [Mass/Vol] 59 mg/dL High 7-18 [facility] Comment on above: Performed By: #### L 100.0100, L500.2500 ####[facility] [address] [place], [address] Bedside Glucoseon 02-29-2024 FINGERSTICK GLU 167 mg/dL High 74-106 [facility] Comment on above: Result Comment: MYKE GEMENT OF PATIENT CARE PER NURSING PROTOCOL Performed By: #### L 501.080 ####[facility] [address] [place], [address] FINGERSTICK GLU 180 mg/dL High 74-106 [facility] Comment on above: Result Comment: MYKE GEMENT OF PATIENT CARE PER NURSING PROTOCOL Performed By: #### L 501.080 ####[facility] [address] [place], [address] FINGERSTICK GLU 240 mg/dL High 74-106 [facility] Comment on above: Result Comment: MYKE GEMENT OF PATIENT CARE PER NURSING PROTOCOL Performed By: #### L 501.080 ####[facility] [address] [place], [address] FINGERSTICK GLU 144 mg/dL High 74-106 [facility] Comment on above: Result Comment: MYKE GEMENT OF PATIENT CARE PER NURSING PROTOCOL Performed By: #### L 501.080 ####[facility] [address] [place], [address] CBC W/Diff, Automatedon 12-2 0-2023 Absolute Lymph 1.04 X10 3/uL Normal 0.83-4.51 [facility] Comment on above: Performed By: #### L 100.0100, L500.2500 ####[facility] [address] [place], [address] Absolute Neut 2.5 X10 3/uL Normal 2.0-7.7 [facility] Comment on above: Performed By: #### L 100.0100, L500.2500 ####[facility] [address] [place], [address] Basophils/100 WBC (Bld) 0.9 % Normal 0-1 [facility] Comment on above: Performed By: #### L 100.0100, L500.2500 ####[facility] [address] [place], [address] Eosinophils/100 WBC (Bld) 5.7 % High 0-5 [facility] Comment on above: Performed By: #### L 100.0100, L500.2500 ####[facility] [address] [place], [address] Erythrocyte distribution width (RBC) [Ratio] 17.0 % High 11.6-14.6 [facility] Comment on above: Performed By: #### L 100.0100, L500.2500 ####[facility] [address] [place], [address] Hematocrit (Bld) [Volume fraction] 23.5 % Low 40-54 [facility] Comment on above: Performed By: #### L 100.0100, L500.2500 ####[facility] [address] [place], [address] Hemoglobin (Bld) [Mass/Vol] 7.6 g/dL Low 13.0-16.5 [facility] Comment on above: Performed By: #### L 100.0100, L500.2500 ####[facility] [address] [place], [address] IG% 0.700 Normal 0.0-0.9 [facility] Comment on above: Result Comment: IG% - Immature Granulocytes (promyelocytes, myelocytes andmetamyelocytes) > 1% indicates that a LEFT SHIFT is Present. Performed By: #### L 100.0100, L500.2500 ####[facility] [address] [place], [address] Lymphocytes/100 WBC (Bld) 23.8 % Normal 19-41 [facility] Comment on above: Performed By: #### L 100.0100, L500.2500 ####[facility] [address] [place], [address] MCH (RBC) [Entitic mass] 31.8 pg Normal 27.0-32.0 [facility] Comment on above: Performed By: #### L 100.0100, L500.2500 ####[facility] [address] [place], [address] MCHC (RBC) [Mass/Vol] 32.3 g/dL Normal 32-36 [facility] Comment on above: Performed By: #### L 100.0100, L500.2500 ####[facility] [address] [place], [address] MCV (RBC) [Entitic vol] 98.3 fL High 80-94 [facility] Comment on above: Performed By: #### L 100.0100, L500.2500 ####[facility] [address] [place], [address] Monocytes/100 WBC (Bld) 10.8 % High 0-10 [facility] Comment on above: Performed By: #### L 100.0100, L500.2500 ####[facility] [address] [place], [address] Neutrophils/100 WBC (Bld) 58.1 % Normal 47-70 [facility] Comment on above: Performed By: #### L 100.0100, L500.2500 ####[facility] [address] [place], [address] Nucleated RBC (Bld) [#/Vol] 0 10*3/uL Normal 0-5 [facility] Comment on above: Performed By: #### L 100.0100, L500.2500 ####[facility] [address] [place], [address] Platelet mean volume (Bld) [Entitic vol] 10.5 fL Normal 6.2-12.0 [facility] Comment on above: Performed By: #### L 100.0100, L500.2500 ####[facility] [address] [place], [address] Platelets (Bld) [#/Vol] 135 10*3/uL Low 150-450 [facility] Comment on above: Performed By: #### L 100.0100, L500.2500 ####[facility] [address] [place], [address] RBC (Bld) [#/Vol] 2.39 10*6/uL Low 4.6-6.2 [facility] Comment on above: Performed By: #### L 100.0100, L500.2500 ####[facility] [address] [place], [address] RDW SD 59.0 fl High 35.1-43.9 [facility] Comment on above: Performed By: #### L 100.0100, L500.2500 ####[facility] [address] [place], [address] WBC (Bld) [#/Vol] 4.4 10*3/uL Normal 4.4-11.0 [facility] Comment on above: Performed By: #### L 100.0100, L500.2500 ####[facility] [address] [place], [address] MR/CON.PCM.GIon 02-29-2024 MR/CON.PCM.GI Normal [facility] 12 Lead EKGon 02-28-2024 12 Lead EKG Normal [facility] BNP (brain natriuretic pepti de measurement)Ordered By: Yuridia Combs on 02-28-2024 Natriuretic peptide B (Bld) [Mass/Vol] 87.6 pg/mL 0-100 [facility] BNP,B-Type NATRIURETIC PEPTI Nico 02-28-2024 Natriuretic peptide B (Bld) [Mass/Vol] 87.6 pg/mL Normal 0-100 [facility] Comment on above: Performed By: #### L 503.6620 ####[facility] [address] [place], [address] BRCon 02-28-2024 RC Normal [facility] Comment on above: Result Comment: [id number] AN RC TRANSFUSED 02/28/24 1721 Performed By: #### B RC ####[facility] [address] [place], [address] Basic Metabolic Profile (BMP )on 02-28-2024 BUN/CRE 20.6 RATIO High - [facility] Comment on above: Order Comment: 'TROP ' Serial specimen #1, #2 or #3: 1 Performed By: #### L 100.0100, L500.2500, L501.4020 ####[facility] [address] [place], [address] CA,Total 9.0 mg/dL Normal 8.5-10.1 [facility] Comment on above: Order Comment: 'TROP ' Serial specimen #1, #2 or #3: 1 Performed By: #### L 100.0100, L500.2500, L501.4020 ####[facility] [address] [place], [address] Chloride [Moles/Vol] 104 mmol/L Normal 98-107 [facility] Comment on above: Order Comment: 'TROP ' Serial specimen #1, #2 or #3: 1 Performed By: #### L 100.0100, L500.2500, L501.4020 ####[facility] [address] [place], [address] CO2 [Moles/Vol] 28.0 mmol/L Normal 21.0-32.0 [facility] Comment on above: Order Comment: 'TROP ' Serial specimen #1, #2 or #3: 1 Performed By: #### L 100.0100, L500.2500, L501.4020 ####[facility] [address] [place], [address] Creatinine [Mass/Vol] 2.96 mg/dL High 0.70-1.30 [facility] Comment on above: Order Comment: 'TROP ' Serial specimen #1, #2 or #3: 1 Result Comment: The validity of the calculated GFR GFRAA in patients over70 years has not been determined. Clinical correlation isessential. Performed By: #### L 100.0100, L500.2500, L501.4020 ####[facility] [address] [place], [address] ECRCL 18.85 ml/min Normal [facility] Comment on above: Order Comment: 'TROP ' Serial specimen #1, #2 or #3: 1 Performed By: #### L 100.0100, L500.2500, L501.4020 ####[facility] [address] [place], [address] EST GFR - AA 26 mL/min Low >60 [facility] Comment on above: Order Comment: 'TROP ' Serial specimen #1, #2 or #3: 1 Result Comment: Afri can Guyanese GFR Calc Performed By: #### L 100.0100, L500.2500, L501.4020 ####[facility] [address] [place], [address] GAP 7 Normal 5-15 [facility] Comment on above: Order Comment: 'TROP ' Serial specimen #1, #2 or #3: 1 Performed By: #### L 100.0100, L500.2500, L501.4020 ####[facility] [address] [place], [address] GFR/1.73 sq M.predicted among non-blacks MDRD (S/P/Bld) [Vol rate/Area] 22 mL/min/{1.73_m2} Low >60 [facility] Comment on above: Order Comment: 'TROP ' Serial specimen #1, #2 or #3: 1 Result Comment: Non- GFR Calc Performed By: #### L 100.0100, L500.2500, L501.4020 ####[facility] [address] [place], [address] Glucose [Mass/Vol] 317 mg/dL High 74-106 [facility] Comment on above: Order Comment: 'TROP ' Serial specimen #1, #2 or #3: 1 Result Comment: Gluc ose result greater than or equal to 200 mg/dLsuggests DIABETES MELLITUS per A.D.A. criteria. Performed By: #### L 100.0100, L500.2500, L501.4020 ####[facility] [address] [place], [address] Potassium [Moles/Vol] 4.2 mmol/L Normal 3.5-5.1 [facility] Comment on above: Order Comment: 'TROP ' Serial specimen #1, #2 or #3: 1 Performed By: #### L 100.0100, L500.2500, L501.4020 ####[facility] [address] [place], [address] Sodium [Moles/Vol] 139 mmol/L Normal 136-145 [facility] Comment on above: Order Comment: 'TROP ' Serial specimen #1, #2 or #3: 1 Performed By: #### L 100.0100, L500.2500, L501.4020 ####[facility] [address] [place], [address] Urea nitrogen [Mass/Vol] 61 mg/dL High 7-18 [facility] Comment on above: Order Comment: 'TROP ' Serial specimen #1, #2 or #3: 1 Performed By: #### L 100.0100, L500.2500, L501.4020 ####[facility] [address] [place], [address] Bedside Glucoseon 02-27-2023 FINGERSTICK GLU 245 mg/dL High 74-106 [facility] Comment on above: Result Comment: MYKE SAGE OF PATIENT CARE PER NURSING PROTOCOL Performed By: #### L 501.080 ####[facility] [address] [place], [address] CBC W/Diff, Automatedon 02-09 Absolute Lymph 0.78 X10 3/uL Low 0.83-4.51 [facility] Comment on above: Performed By: #### L 100.0100, L500.2500, L501.4020 ####[facility] [address] [place], [address] Absolute Neut 2.2 X10 3/uL Normal 2.0-7.7 [facility] Comment on above: Performed By: #### L 100.0100, L500.2500, L501.4020 ####[facility] [address] [place], [address] Basophils/100 WBC (Bld) 0.6 % Normal 0-1 [facility] Comment on above: Performed By: #### L 100.0100, L500.2500, L501.4020 ####[facility] [address] [place], [address] Eosinophils/100 WBC (Bld) 4.7 % Normal 0-5 [facility] Comment on above: Performed By: #### L 100.0100, L500.2500, L501.4020 ####[facility] [address] [place], [address] Erythrocyte distribution width (RBC) [Ratio] 15.9 % High 11.6-14.6 [facility] Comment on above: Performed By: #### L 100.0100, L500.2500, L501.4020 ####[facility] [address] [place], [address] Hematocrit (Bld) [Volume fraction] 22.2 % Low 40-54 [facility] Comment on above: Performed By: #### L 100.0100, L500.2500, L501.4020 ####[facility] [address] [place], [address] Hemoglobin (Bld) [Mass/Vol] 6.9 g/dL Low 13.0-16.5 [facility] Comment on above: Performed By: #### L 100.0100, L500.2500, L501.4020 ####[facility] [address] [place], [address] IG% 1.100 High 0.0-0.9 [facility] Comment on above: Result Comment: IG% - Immature Granulocytes (promyelocytes, myelocytes andmetamyelocytes) > 1% indicates that a LEFT SHIFT is Present. Performed By: #### L 100.0100, L500.2500, L501.4020 ####[facility] [address] [place], [address] Lymphocytes/100 WBC (Bld) 21.8 % Normal 19-41 [facility] Comment on above: Performed By: #### L 100.0100, L500.2500, L501.4020 ####[facility] [address] [place], [address] MCH (RBC) [Entitic mass] 31.9 pg Normal 27.0-32.0 [facility] Comment on above: Performed By: #### L 100.0100, L500.2500, L501.4020 ####[facility] [address] [place], [address] MCHC (RBC) [Mass/Vol] 31.1 g/dL Low 32-36 [facility] Comment on above: Performed By: #### L 100.0100, L500.2500, L501.4020 ####[facility] [address] [place], [address] MCV (RBC) [Entitic vol] 102.8 fL High 80-94 [facility] Comment on above: Performed By: #### L 100.0100, L500.2500, L501.4020 ####[facility] [address] [place], [address] Monocytes/100 WBC (Bld) 10.1 % High 0-10 [facility] Comment on above: Performed By: #### L 100.0100, L500.2500, L501.4020 ####[facility] [address] [place], [address] Neutrophils/100 WBC (Bld) 61.7 % Normal 47-70 [facility] Comment on above: Performed By: #### L 100.0100, L500.2500, L501.4020 ####[facility] [address] [place], [address] Nucleated RBC (Bld) [#/Vol] 0 10*3/uL Normal 0-5 [facility] Comment on above: Performed By: #### L 100.0100, L500.2500, L501.4020 ####[facility] [address] [place], [address] Platelet mean volume (Bld) [Entitic vol] 10.1 fL Normal 6.2-12.0 [facility] Comment on above: Performed By: #### L 100.0100, L500.2500, L501.4020 ####[facility] [address] [place], [address] Platelets (Bld) [#/Vol] 135 10*3/uL Low 150-450 [facility] Comment on above: Performed By: #### L 100.0100, L500.2500, L501.4020 ####[facility] [address] [place], [address] RBC (Bld) [#/Vol] 2.16 10*6/uL Low 4.6-6.2 [facility] Comment on above: Performed By: #### L 100.0100, L500.2500, L501.4020 ####[facility] [address] [place], [address] RDW SD 58.4 fl High 35.1-43.9 [facility] Comment on above: Performed By: #### L 100.0100, L500.2500, L501.4020 ####[facility] [address] [place], [address] WBC (Bld) [#/Vol] 3.6 10*3/uL Low 4.4-11.0 [facility] Comment on above: Performed By: #### L 100.0100, L500.2500, L501.4020 ####[facility] [address] [place], [address] Chest 1 View (Portable)on Chest 1 View (Portable) Normal [facility] Emergency Department Summary on 02-28-2024 Emergency Department Summary Normal [facility] Emergency Department Summary Normal [facility] H AND P Exam - [place] 02-28-2024 H&P Exam - Hospitalist Normal [facility] Influenza virus A and B and SARS-CoV-2 (COVID-19) and Respiratory syncytial virus RNAOrdered By: Yuridia Combs on 02-28-2024 SARS-CoV-2 (COVID-19) RNA JOSH+probe Ql (Unsp spec) [facility] L501.4020on 02-28-2024 TROPONIN-I HS 31 pg/mL Normal 3.0-78.0 [facility] Comment on above: Order Comment: 'TROP ' Serial specimen #1, #2 or #3: 1 Result Comment: Plea se Note: New Test Units and Gender Specific Reference Ranges. For more information see Policy Stat Procedure [place] High Sensitivity Troponin (TNIH) and attachments. Performed By: #### L 100.0100, L500.2500, L501.4020 ####[facility] [address] [place], [address] Lower GI hemoglobin IA Ql (S tl)Ordered By: Yuridia Combs on 02-28-2024 Stool Occult Blood (CLARY) [facility] M100.678on 02-28-2024 M100.678 Pending SARS-CoV-2 (COVID 19) Negative INFLUENZA A Negative INFLUENZA B Negative RSV PCR Negative Normal [facility] Comment on above: Performed By: #### M 100.678 ####[facility] [address] [place], [place], [id number] Stool Occult Blood iFOBon STOB Negative Normal [facility] Comment on above: Performed By: #### M 100.7900 ####[facility] [address] [place], [address] Troponin IOrdered By: Yuridia pereira on 02-28-2024 Troponin I High Sensitivity 31 pg/mL 3.0-78.0 [facility] Comment on above: Please Note: New Arti t Units and Gender Specific Reference Ranges. For more information see Policy Stat Procedure [place] High Sensitivity Troponin (TNIH) and attachments. Type AND Screenon 02-28-2024 Ab SCREEN GEL Negative Normal [facility] Comment on above: Order Comment: A Performed By: #### B TS ####[facility] [address] [place], [address] Basic Metabolic Profile (BMP )on 02-21-2024 BUN/CRE 25.2 RATIO High 10-20 [facility] Comment on above: Performed By: #### L 100.0100, L500.2500 ####[facility] [address] [place], [address] CA,Total 9.9 mg/dL Normal 8.5-10.1 [facility] Comment on above: Performed By: #### L 100.0100, L500.2500 ####[facility] [address] [place], [address] Chloride [Moles/Vol] 105 mmol/L Normal 98-107 [facility] Comment on above: Performed By: #### L 100.0100, L500.2500 ####[facility] [address] [place], [address] CO2 [Moles/Vol] 30.0 mmol/L Normal 21.0-32.0 [facility] Comment on above: Performed By: #### L 100.0100, L500.2500 ####[facility] [address] [place], [address] Creatinine [Mass/Vol] 2.50 mg/dL High 0.70-1.30 [facility] Comment on above: Result Comment: The validity of the calculated GFR GFRAA in patients over70 years has not been determined. Clinical correlation isessential. Performed By: #### L 100.0100, L500.2500 ####[facility] [address] [place], [address] EST GFR - AA 32 mL/min Low >60 [facility] Comment on above: Result Comment: Afri can Guyanese GFR Calc Performed By: #### L 100.0100, L500.2500 ####[facility] [address] [place], [address] GAP 6 Normal 5-15 [facility] Comment on above: Performed By: #### L 100.0100, L500.2500 ####[facility] [address] [place], [address] GFR/1.73 sq M.predicted among non-blacks MDRD (S/P/Bld) [Vol rate/Area] 26 mL/min/{1.73_m2} Low >60 [facility] Comment on above: Result Comment: Non- GFR Calc Performed By: #### L 100.0100, L500.2500 ####[facility] [address] [place], [address] Glucose [Mass/Vol] 181 mg/dL High 74-106 [facility] Comment on above: Result Comment: Fast ing Glucose result greater than or equal to 126 mg/dLsuggests DIABETES MELLITUS per A.D.A. criteria. Performed By: #### L 100.0100, L500.2500 ####[facility] [address] [place], [address] Potassium [Moles/Vol] 5.1 mmol/L Normal 3.5-5.1 [facility] Comment on above: Performed By: #### L 100.0100, L500.2500 ####[facility] [address] [place], [address] Sodium [Moles/Vol] 141 mmol/L Normal 136-145 [facility] Comment on above: Performed By: #### L 100.0100, L500.2500 ####[facility] [address] [place], [address] Urea nitrogen [Mass/Vol] 63 mg/dL High 7-18 [facility] Comment on above: Performed By: #### L 100.0100, L500.2500 ####[facility] [address] [place], [address] CBC W/Diff, Automatedon 12- Absolute Lymph 1.21 X10 3/uL Normal 0.83-4.51 [facility] Comment on above: Performed By: #### L 100.0100, L500.2500 ####[facility] [address] [place], [address] Absolute Neut 4.8 X10 3/uL Normal 2.0-7.7 [facility] Comment on above: Performed By: #### L 100.0100, L500.2500 ####[facility] [address] [place], [address] Basophils/100 WBC (Bld) 0.4 % Normal 0-1 [facility] Comment on above: Performed By: #### L 100.0100, L500.2500 ####[facility] [address] [place], [address] Eosinophils/100 WBC (Bld) 3.3 % Normal 0-5 [facility] Comment on above: Performed By: #### L 100.0100, L500.2500 ####[facility] [address] [place], [address] Erythrocyte distribution width (RBC) [Ratio] 13.9 % Normal 11.6-14.6 [facility] Comment on above: Performed By: #### L 100.0100, L500.2500 ####[facility] [address] [place], [address] Hematocrit (Bld) [Volume fraction] 23.2 % Low 40-54 [facility] Comment on above: Performed By: #### L 100.0100, L500.2500 ####[facility] [address] [place], [address] Hemoglobin (Bld) [Mass/Vol] 7.1 g/dL Low 13.0-16.5 [facility] Comment on above: Performed By: #### L 100.0100, L500.2500 ####[facility] [address] [place], [address] IG% 0.300 Normal 0.0-0.9 [facility] Comment on above: Result Comment: IG% - Immature Granulocytes (promyelocytes, myelocytes andmetamyelocytes) > 1% indicates that a LEFT SHIFT is Present. Performed By: #### L 100.0100, L500.2500 ####[facility] [address] [place], [address] Lymphocytes/100 WBC (Bld) 18.1 % Low 19-41 [facility] Comment on above: Performed By: #### L 100.0100, L500.2500 ####[facility] [address] [place], [address] MCH (RBC) [Entitic mass] 30.9 pg Normal 27.0-32.0 [facility] Comment on above: Performed By: #### L 100.0100, L500.2500 ####[facility] [address] [place], [address] MCHC (RBC) [Mass/Vol] 30.6 g/dL Low 32-36 [facility] Comment on above: Performed By: #### L 100.0100, L500.2500 ####[facility] [address] [place], [address] MCV (RBC) [Entitic vol] 100.9 fL High 80-94 [facility] Comment on above: Performed By: #### L 100.0100, L500.2500 ####[facility] [address] [place], [address] Monocytes/100 WBC (Bld) 6.1 % Normal 0-10 [facility] Comment on above: Performed By: #### L 100.0100, L500.2500 ####[facility] [address] [place], [address] Neutrophils/100 WBC (Bld) 71.8 % High 47-70 [facility] Comment on above: Performed By: #### L 100.0100, L500.2500 ####[facility] [address] [place], [address] Nucleated RBC (Bld) [#/Vol] 0 10*3/uL Normal 0-5 [facility] Comment on above: Performed By: #### L 100.0100, L500.2500 ####[facility] [address] [place], [address] Platelet mean volume (Bld) [Entitic vol] 11.2 fL Normal 6.2-12.0 [facility] Comment on above: Performed By: #### L 100.0100, L500.2500 ####[facility] [address] [place], [address] Platelets (Bld) [#/Vol] 124 10*3/uL Low 150-450 [facility] Comment on above: Performed By: #### L 100.0100, L500.2500 ####[facility] [address] [place], [address] RBC (Bld) [#/Vol] 2.30 10*6/uL Low 4.6-6.2 [facility] Comment on above: Performed By: #### L 100.0100, L500.2500 ####[facility] [address] [place], [address] RDW SD 51.2 fl High 35.1-43.9 [facility] Comment on above: Performed By: #### L 100.0100, L500.2500 ####[facility] [address] [place], [address] WBC (Bld) [#/Vol] 6.7 10*3/uL Normal 4.4-11.0 [facility] Comment on above: Performed By: #### L 100.0100, L500.2500 ####[facility] [address] [place], [address] CBC W/Diff, Automatedon 12-0 2-2023 Absolute Lymph 0.79 X10 3/uL Low 0.83-4.51 [facility] Comment on above: Order Comment: Order Date: 02/08/24Order Info: 4-1 - CBCD Performed By: #### L 100.0100, L501.9520 ####[facility] [address] [place], [address] Absolute Neut 7.0 X10 3/uL Normal 2.0-7.7 [facility] Comment on above: Order Comment: Order Date: 02/08/24Order Info: 4-1 - CBCD Performed By: #### L 100.0100, L501.9520 ####[facility] [address] [place], [address] Basophils/100 WBC (Bld) 0.1 % Normal 0-1 [facility] Comment on above: Order Comment: Order Date: 02/08/24Order Info: 183-1 - CBCD Performed By: #### L 100.0100, L501.9520 ####[facility] [address] [place], [address] Eosinophils/100 WBC (Bld) 1.5 % Normal 0-5 [facility] Comment on above: Order Comment: Order Date: 02/08/24Order Info: 0184-1 - CBCD Performed By: #### L 100.0100, L501.9520 ####[facility] [address] [place], [address] Erythrocyte distribution width (RBC) [Ratio] 15.3 % High 11.6-14.6 [facility] Comment on above: Order Comment: Order Date: 02/08/24Order Info: 0184-1 - CBCD Performed By: #### L 100.0100, L501.9520 ####[facility] [address] [place], [address] Hematocrit (Bld) [Volume fraction] 28.4 % Low 40-54 [facility] Comment on above: Order Comment: Order Date: 02/08/24Order Info: 183- - CBCD Performed By: #### L 100.0100, L501.9520 ####[facility] [address] [place], [address] Hemoglobin (Bld) [Mass/Vol] 8.6 g/dL Low 13.0-16.5 [facility] Comment on above: Order Comment: Order Date: 02/08/24Order Info: 183- - CBCD Performed By: #### L 100.0100, L501.9520 ####[facility] [address] [place], [address] IG% 3.400 High 0.0-0.9 [facility] Comment on above: Order Comment: Order Date: 02/08/24Order Info: 183- - CBCD Result Comment: IG% - Immature Granulocytes (promyelocytes, myelocytes andmetamyelocytes) > 1% indicates that a LEFT SHIFT is Present. Performed By: #### L 100.0100, L501.9520 ####[facility] [address] [place], [address] Lymphocytes/100 WBC (Bld) 9.2 % Low 19-41 [facility] Comment on above: Order Comment: Order Date: 02/08/24Order Info: 018- - CBCD Performed By: #### L 100.0100, L501.9520 ####[facility] [address] [place], [address] MCH (RBC) [Entitic mass] 30.8 pg Normal 27.0-32.0 [facility] Comment on above: Order Comment: Order Date: 02/08/24Order Info: 4- - CBCD Performed By: #### L 100.0100, L501.9520 ####[facility] [address] [place], [address] MCHC (RBC) [Mass/Vol] 30.3 g/dL Low 32-36 [facility] Comment on above: Order Comment: Order Date: 02/08/24Order Info: 4-1 - CBCD Performed By: #### L 100.0100, L501.9520 ####[facility] [address] [place], [address] MCV (RBC) [Entitic vol] 101.8 fL High 80-94 [facility] Comment on above: Order Comment: Order Date: 02/08/24Order Info: 183- - CBCD Performed By: #### L 100.0100, L501.9520 ####[facility] [address] [place], [address] Monocytes/100 WBC (Bld) 3.6 % Normal 0-10 [facility] Comment on above: Order Comment: Order Date: 02/08/24Order Info: 183- - CBCD Performed By: #### L 100.0100, L501.9520 ####[facility] [address] [place], [address] Neutrophils/100 WBC (Bld) 82.2 % High 47-70 [facility] Comment on above: Order Comment: Order Date: 02/08/24Order Info: 4-1 - CBCD Performed By: #### L 100.0100, L501.9520 ####[facility] [address] [place], [address] Nucleated RBC (Bld) [#/Vol] 0 10*3/uL Normal 0-5 [facility] Comment on above: Order Comment: Order Date: 02/08/24Order Info: 4-1 - CBCD Performed By: #### L 100.0100, L501.9520 ####[facility] [address] [place], [address] Platelet mean volume (Bld) [Entitic vol] 11.0 fL Normal 6.2-12.0 [facility] Comment on above: Order Comment: Order Date: 02/08/24Order Info: 0184-1 - CBCD Performed By: #### L 100.0100, L501.9520 ####[facility] [address] [place], [address] Platelets (Bld) [#/Vol] 121 10*3/uL Low 150-450 [facility] Comment on above: Order Comment: Order Date: 02/08/24Order Info: 4-1 - CBCD Performed By: #### L 100.0100, L501.9520 ####[facility] [address] [place], [address] RBC (Bld) [#/Vol] 2.79 10*6/uL Low 4.6-6.2 [facility] Comment on above: Order Comment: Order Date: 02/08/24Order Info: 018- - CBCD Performed By: #### L 100.0100, L501.9520 ####[facility] [address] [place], [address] RDW SD 57.0 fl High 35.1-43.9 [facility] Comment on above: Order Comment: Order Date: 02/08/24Order Info: 0184-1 - CBCD Performed By: #### L 100.0100, L501.9520 ####[facility] [address] [place], [address] WBC (Bld) [#/Vol] 8.6 10*3/uL Normal 4.4-11.0 [facility] Comment on above: Order Comment: Order Date: 02/08/24Order Info: 0184-1 - CBCD Performed By: #### L 100.0100, L501.9520 ####[facility] [address] [place], [address] Thyroid Stim Hormone (TSH)on 02-11-2024 TSH 6.340 uIU/mL High 0.358-3.740 [facility] Comment on above: Order Comment: Order Date: 02/08/24Order Info: 3016-3 - TSHComments: hospital follow up Performed By: #### L 100.0100, L501.9520 ####[facility] [address] [place], [address] Basic Metabolic Profile (BMP )on 02-05-2024 BUN Normal 7-18 [facility] Comment on above: Result Comment: Canc elled via OM: Order cancelled - Patient discharged Performed By: #### L 100.0100, L500.2500 ####[facility] [address] [place], [address] BUN/CRE Normal 10-20 [facility] Comment on above: Result Comment: Canc elled via OM: Order cancelled - Patient discharged Performed By: #### L 100.0100, L500.2500 ####[facility] [address] [place], [address] CA,Total Normal 8.5-10.1 [facility] Comment on above: Result Comment: Canc elled via OM: Order cancelled - Patient discharged Performed By: #### L 100.0100, L500.2500 ####[facility] [address] [place], [address] CL Normal 98-107 [facility] Comment on above: Result Comment: Canc elled via OM: Order cancelled - Patient discharged Performed By: #### L 100.0100, L500.2500 ####[facility] [address] [place], [address] CO2 Normal 21.0-32.0 [facility] Comment on above: Result Comment: Canc elled via OM: Order cancelled - Patient discharged Performed By: #### L 100.0100, L500.2500 ####[facility] [address] [place], [address] CREAT,SERUM Normal 0.70-1.30 [facility] Comment on above: Result Comment: Canc elled via OM: Order cancelled - Patient discharged Performed By: #### L 100.0100, L500.2500 ####[facility] [address] [place], [address] EST GFR Normal >60 [facility] Comment on above: Result Comment: Canc elled via OM: Order cancelled - Patient discharged Performed By: #### L 100.0100, L500.2500 ####[facility] [address] [place], [address] EST GFR - AA Normal >60 [facility] Comment on above: Result Comment: Canc elled via OM: Order cancelled - Patient discharged Performed By: #### L 100.0100, L500.2500 ####[facility] [address] [place], [address] GAP Normal 5-15 [facility] Comment on above: Result Comment: Canc elled via OM: Order cancelled - Patient discharged Performed By: #### L 100.0100, L500.2500 ####[facility] [address] [place], [address] GLU Normal 74-106 [facility] Comment on above: Result Comment: Canc elled via OM: Order cancelled - Patient discharged Performed By: #### L 100.0100, L500.2500 ####[facility] [address] [place], [address] Potassium Normal 3.5-5.1 [facility] Comment on above: Result Comment: Canc elled via OM: Order cancelled - Patient discharged Performed By: #### L 100.0100, L500.2500 ####[facility] [address] [place], [address] Basic Metabolic Profile (BMP) Normal 136-145 [facility] Comment on above: Result Comment: Canc elled via OM: Order cancelled - Patient discharged Performed By: #### L 100.0100, L500.2500 ####[facility] [address] [place], [address] CBC W/Diff, Automatedon 11-2 Absolute Neut Normal 2.0-7.7 [facility] Comment on above: Result Comment: Canc elled via OM: Order cancelled - Patient discharged Performed By: #### L 100.0100, L500.2500 ####[facility] [address] [place], [address] HCT Normal 40-54 [facility] Comment on above: Result Comment: Canc elled via OM: Order cancelled - Patient discharged Performed By: #### L 100.0100, L500.2500 ####[facility] [address] [place], [address] HGB Normal 13.0-16.5 [facility] Comment on above: Result Comment: Canc elled via OM: Order cancelled - Patient discharged Performed By: #### L 100.0100, L500.2500 ####[facility] [address] [place], [address] MCH Normal 27.0-32.0 [facility] Comment on above: Result Comment: Canc elled via OM: Order cancelled - Patient discharged Performed By: #### L 100.0100, L500.2500 ####[facility] [address] [place], [address] MCHC Normal 32-36 [facility] Comment on above: Result Comment: Canc elled via OM: Order cancelled - Patient discharged Performed By: #### L 100.0100, L500.2500 ####[facility] [address] [place], [address] MCV Normal 80-94 [facility] Comment on above: Result Comment: Canc elled via OM: Order cancelled - Patient discharged Performed By: #### L 100.0100, L500.2500 ####[facility] [address] [place], [address] NEUT% Normal 47-70 [facility] Comment on above: Result Comment: Canc elled via OM: Order cancelled - Patient discharged Performed By: #### L 100.0100, L500.2500 ####[facility] [address] [place], [address] PLT Normal 150-450 [facility] Comment on above: Result Comment: Canc elled via OM: Order cancelled - Patient discharged Performed By: #### L 100.0100, L500.2500 ####[facility] [address] [place], [address] RBC Normal 4.6-6.2 [facility] Comment on above: Result Comment: Canc elled via OM: Order cancelled - Patient discharged Performed By: #### L 100.0100, L500.2500 ####[facility] [address] [place], [address] RDW CV Normal 11.6-14.6 [facility] Comment on above: Result Comment: Canc elled via OM: Order cancelled - Patient discharged Performed By: #### L 100.0100, L500.2500 ####[facility] [address] [place], [address] RDW SD Normal 35.1-43.9 [facility] Comment on above: Result Comment: Canc elled via OM: Order cancelled - Patient discharged Performed By: #### L 100.0100, L500.2500 ####[facility] [address] [place], [address] WBC Normal 4.4-11.0 [facility] Comment on above: Result Comment: Canc elled via OM: Order cancelled - Patient discharged Performed By: #### L 100.0100, L500.2500 ####[facility] [address] [place], [address] Basic Metabolic Profile (BMP )on 02-04-2024 BUN/CRE 30.5 RATIO High 10-20 [facility] Comment on above: Performed By: #### L 500.2500, L100.0100 ####[facility] [address] [place], [address] CA,Total 9.4 mg/dL Normal 8.5-10.1 [facility] Comment on above: Performed By: #### L 500.2500, L100.0100 ####[facility] [address] [place], [address] Chloride [Moles/Vol] 108 mmol/L High 98-107 [facility] Comment on above: Performed By: #### L 500.2500, L100.0100 ####[facility] [address] [place], [address] CO2 [Moles/Vol] 24.0 mmol/L Normal 21.0-32.0 [facility] Comment on above: Performed By: #### L 500.2500, L100.0100 ####[facility] [address] [place], [address] Creatinine [Mass/Vol] 2.39 mg/dL High 0.70-1.30 [facility] Comment on above: Result Comment: The validity of the calculated GFR GFRAA in patients over70 years has not been determined. Clinical correlation isessential. Performed By: #### L 500.2500, L100.0100 ####[facility] [address] [place], [address] ECRCL 22.96 ml/min Normal [facility] Comment on above: Performed By: #### L 500.2500, L100.0100 ####[facility] [address] [place], [address] EST GFR - AA 33 mL/min Low >60 [facility] Comment on above: Result Comment: Afri can Guyanese GFR Calc Performed By: #### L 500.2500, L100.0100 ####[facility] [address] [place], [address] GAP 7 Normal 5-15 [facility] Comment on above: Performed By: #### L 500.2500, L100.0100 ####[facility] [address] [place], [address] GFR/1.73 sq M.predicted among non-blacks MDRD (S/P/Bld) [Vol rate/Area] 28 mL/min/{1.73_m2} Low >60 [facility] Comment on above: Result Comment: Non- GFR Calc Performed By: #### L 500.2500, L100.0100 ####[facility] [address] [place], [address] Glucose [Mass/Vol] 220 mg/dL High 74-106 [facility] Comment on above: Result Comment: Gluc ose result greater than or equal to 200 mg/dLsuggests DIABETES MELLITUS per A.D.A. criteria. Performed By: #### L 500.2500, L100.0100 ####[facility] [address] [place], [address] Potassium [Moles/Vol] 5.2 mmol/L High 3.5-5.1 [facility] Comment on above: Performed By: #### L 500.2500, L100.0100 ####[facility] [address] [place], [address] Sodium [Moles/Vol] 139 mmol/L Normal 136-145 [facility] Comment on above: Performed By: #### L 500.2500, L100.0100 ####[facility] [address] [place], [address] Urea nitrogen [Mass/Vol] 73 mg/dL High 7-18 [facility] Comment on above: Performed By: #### L 500.2500, L100.0100 ####[facility] [address] [place], [address] Bedside Glucoseon 02-03-2023 FINGERSTICK GLU 259 mg/dL High 74-106 [facility] Comment on above: Result Comment: MYKE GEMENT OF PATIENT CARE PER NURSING PROTOCOL Performed By: #### L 501.080 ####[facility] [address] [place], [address] FINGERSTICK GLU 158 mg/dL High 74-106 [facility] Comment on above: Result Comment: MYKE GEMENT OF PATIENT CARE PER NURSING PROTOCOL Performed By: #### L 501.080 ####[facility] [address] [place], [address] FINGERSTICK GLU 196 mg/dL High 74-106 [facility] Comment on above: Result Comment: MYKE GEMENT OF PATIENT CARE PER NURSING PROTOCOL Performed By: #### L 501.080 ####[facility] [address] [place], [address] CBC W/Diff, Automatedon 11- Absolute Lymph 0.45 X10 3/uL Low 0.83-4.51 [facility] Comment on above: Performed By: #### L 500.2500, L100.0100 ####[facility] [address] [place], [address] Absolute Neut 7.9 X10 3/uL High 2.0-7.7 [facility] Comment on above: Performed By: #### L 500.2500, L100.0100 ####[facility] [address] [place], [address] Basophils/100 WBC (Bld) 0.1 % Normal 0-1 [facility] Comment on above: Performed By: #### L 500.2500, L100.0100 ####[facility] [address] [place], [address] Eosinophils/100 WBC (Bld) 0.0 % Normal 0-5 [facility] Comment on above: Performed By: #### L 500.2500, L100.0100 ####[facility] [address] [place], [address] Erythrocyte distribution width (RBC) [Ratio] 14.9 % High 11.6-14.6 [facility] Comment on above: Performed By: #### L 500.2500, L100.0100 ####[facility] [address] [place], [address] Hematocrit (Bld) [Volume fraction] 23.6 % Low 40-54 [facility] Comment on above: Performed By: #### L 500.2500, L100.0100 ####[facility] [address] [place], [address] Hemoglobin (Bld) [Mass/Vol] 7.5 g/dL Low 13.0-16.5 [facility] Comment on above: Performed By: #### L 500.2500, L100.0100 ####[facility] [address] [place], [address] IG% 0.600 Normal 0.0-0.9 [facility] Comment on above: Result Comment: IG% - Immature Granulocytes (promyelocytes, myelocytes andmetamyelocytes) > 1% indicates that a LEFT SHIFT is Present. Performed By: #### L 500.2500, L100.0100 ####[facility] [address] [place], [address] Lymphocytes/100 WBC (Bld) 5.3 % Low 19-41 [facility] Comment on above: Performed By: #### L 500.2500, L100.0100 ####[facility] [address] [place], [address] MCH (RBC) [Entitic mass] 31.3 pg Normal 27.0-32.0 [facility] Comment on above: Performed By: #### L 500.2500, L100.0100 ####[facility] [address] [place], [address] MCHC (RBC) [Mass/Vol] 31.8 g/dL Low 32-36 [facility] Comment on above: Performed By: #### L 500.2500, L100.0100 ####[facility] [address] [place], [address] MCV (RBC) [Entitic vol] 98.3 fL High 80-94 [facility] Comment on above: Performed By: #### L 500.2500, L100.0100 ####[facility] [address] [place], [address] Monocytes/100 WBC (Bld) 1.9 % Normal 0-10 [facility] Comment on above: Performed By: #### L 500.2500, L100.0100 ####[facility] [address] [place], [address] Neutrophils/100 WBC (Bld) 92.1 % High 47-70 [facility] Comment on above: Performed By: #### L 500.2500, L100.0100 ####[facility] [address] [place], [address] Nucleated RBC (Bld) [#/Vol] 0 10*3/uL Normal 0-5 [facility] Comment on above: Performed By: #### L 500.2500, L100.0100 ####[facility] [address] [place], [address] Platelet mean volume (Bld) [Entitic vol] 11.0 fL Normal 6.2-12.0 [facility] Comment on above: Performed By: #### L 500.2500, L100.0100 ####[facility] [address] [place], [address] Platelets (Bld) [#/Vol] 129 10*3/uL Low 150-450 [facility] Comment on above: Performed By: #### L 500.2500, L100.0100 ####[facility] [address] [place], [address] RBC (Bld) [#/Vol] 2.40 10*6/uL Low 4.6-6.2 [facility] Comment on above: Performed By: #### L 500.2500, L100.0100 ####[facility] [address] [place], [address] RDW SD 53.0 fl High 35.1-43.9 [facility] Comment on above: Performed By: #### L 500.2500, L100.0100 ####[facility] [address] [place], [address] WBC (Bld) [#/Vol] 8.5 10*3/uL Normal 4.4-11.0 [facility] Comment on above: Performed By: #### L 500.2500, L100.0100 ####[facility] [address] [place], [address] Discharge Instructionon 01-11 Discharge Instruction Normal [facility] Vitamin B12on 02-04-2024 Cobalamin (Vitamin B12) [Mass/Vol] 661 pg/mL Normal 211-911 [facility] Comment on above: Performed By: #### L 503.0105 ####[facility] [address] [place], [address] Bedside Glucoseon 02-03-2024 FINGERSTICK GLU 192 mg/dL High [address] [place] [address] Comment on above: Result Comment: MYKE GEMENT OF PATIENT CARE PER NURSING PROTOCOL Performed By: #### L 501.080 ####[facility] [address] [place], [address] FINGERSTICK GLU 201 mg/dL High [address] [place] [address] Comment on above: Result Comment: MYKE GEMENT OF PATIENT CARE PER NURSING PROTOCOL Performed By: #### L 501.080 ####[facility] [address] [place], [address] FINGERSTICK GLU 270 mg/dL High [address] [place] [address] Comment on above: Result Comment: MYKE GEMENT OF PATIENT CARE PER NURSING PROTOCOL Performed By: #### L 501.080 ####[facility] [address] [place], [address] FINGERSTICK GLU 215 mg/dL High [address] [place] [address] Comment on above: Result Comment: MYKE GEMENT OF PATIENT CARE PER NURSING PROTOCOL Performed By: #### L 501.080 ####[facility] [address] [place], [address] CBC W/Diff, Automatedon 01-11 Absolute Lymph 0.35 X10 3/uL Low 0.83-4.51 [facility] Comment on above: Performed By: #### L 501.9985, L501.2300, L501.5200, L100.0100, L500.4050 ####[facility] [address] [place], [address] Absolute Neut 4.4 X10 3/uL Normal 2.0-7.7 [facility] Comment on above: Performed By: #### L 501.9985, L501.2300, L501.5200, L100.0100, L500.4050 ####[facility] [address] [place], [address] Basophils/100 WBC (Bld) 0.2 % Normal 0-1 [facility] Comment on above: Performed By: #### L 501.9985, L501.2300, L501.5200, L100.0100, L500.4050 ####[facility] [address] [place], [address] Eosinophils/100 WBC (Bld) 0.4 % Normal 0-5 [facility] Comment on above: Performed By: #### L 501.9985, L501.2300, L501.5200, L100.0100, L500.4050 ####[facility] [address] [place], [address] Erythrocyte distribution width (RBC) [Ratio] 14.8 % High 11.6-14.6 [facility] Comment on above: Performed By: #### L 501.9985, L501.2300, L501.5200, L100.0100, L500.4050 ####[facility] [address] [place], [address] Hematocrit (Bld) [Volume fraction] 24.5 % Low 40-54 [facility] Comment on above: Performed By: #### L 501.9985, L501.2300, L501.5200, L100.0100, L500.4050 ####[facility] [address] [place], [address] Hemoglobin (Bld) [Mass/Vol] 7.7 g/dL Low 13.0-16.5 [facility] Comment on above: Performed By: #### L 501.9985, L501.2300, L501.5200, L100.0100, L500.4050 ####[facility] [address] [place], [address] IG% 0.600 Normal 0.0-0.9 [facility] Comment on above: Result Comment: IG% - Immature Granulocytes (promyelocytes, myelocytes andmetamyelocytes) > 1% indicates that a LEFT SHIFT is Present. Performed By: #### L 501.9985, L501.2300, L501.5200, L100.0100, L500.4050 ####[facility] [address] [place], [address] Lymphocytes/100 WBC (Bld) 7.2 % Low 19-41 [facility] Comment on above: Performed By: #### L 501.9985, L501.2300, L501.5200, L100.0100, L500.4050 ####[facility] [address] [place], [address] MCH (RBC) [Entitic mass] 31.8 pg Normal 27.0-32.0 [facility] Comment on above: Performed By: #### L 501.9985, L501.2300, L501.5200, L100.0100, L500.4050 ####[facility] [address] [place], [address] MCHC (RBC) [Mass/Vol] 31.4 g/dL Low 32-36 [facility] Comment on above: Performed By: #### L 501.9985, L501.2300, L501.5200, L100.0100, L500.4050 ####[facility] [address] [place], [address] MCV (RBC) [Entitic vol] 101.2 fL High 80-94 [facility] Comment on above: Performed By: #### L 501.9985, L501.2300, L501.5200, L100.0100, L500.4050 ####[facility] [address] [place], [address] Monocytes/100 WBC (Bld) 0.8 % Normal 0-10 [facility] Comment on above: Performed By: #### L 501.9985, L501.2300, L501.5200, L100.0100, L500.4050 ####[facility] [address] [place], [address] Neutrophils/100 WBC (Bld) 90.8 % High 47-70 [facility] Comment on above: Performed By: #### L 501.9985, L501.2300, L501.5200, L100.0100, L500.4050 ####[facility] [address] [place], [address] Nucleated RBC (Bld) [#/Vol] 0 10*3/uL Normal 0-5 [facility] Comment on above: Performed By: #### L 501.9985, L501.2300, L501.5200, L100.0100, L500.4050 ####[facility] [address] [place], [address] Platelet mean volume (Bld) [Entitic vol] 11.3 fL Normal 6.2-12.0 [facility] Comment on above: Performed By: #### L 501.9985, L501.2300, L501.5200, L100.0100, L500.4050 ####[facility] [address] [place], [address] Platelets (Bld) [#/Vol] 105 10*3/uL Low 150-450 [facility] Comment on above: Performed By: #### L 501.9985, L501.2300, L501.5200, L100.0100, L500.4050 ####[facility] [address] [place], [address] RBC (Bld) [#/Vol] 2.42 10*6/uL Low 4.6-6.2 [facility] Comment on above: Performed By: #### L 501.9985, L501.2300, L501.5200, L100.0100, L500.4050 ####[facility] [address] [place], [address] RDW SD 53.8 fl High 35.1-43.9 [facility] Comment on above: Performed By: #### L 501.9985, L501.2300, L501.5200, L100.0100, L500.4050 ####[facility] [address] [place], [address] WBC (Bld) [#/Vol] 4.9 10*3/uL Normal 4.4-11.0 [facility] Comment on above: Performed By: #### L 501.9985, L501.2300, L501.5200, L100.0100, L500.4050 ####[facility] [address] [place], [address] Comprehensive Metabolic [facility] 02-03-2024 Albumin [Mass/Vol] 3.1 g/dL Low 3.2-5.0 [facility] Comment on above: Performed By: #### L 501.9985, L501.2300, L501.5200, L100.0100, L500.4050 ####[facility] [address] [place], [address] Albumin/Globulin [Mass ratio] 0.9 {ratio} Normal 0.9-2.4 [facility] Comment on above: Performed By: #### L 501.9985, L501.2300, L501.5200, L100.0100, L500.4050 ####[facility] [address] [place], [address] ALK P 64 U/L Normal 45-117 [facility] Comment on above: Performed By: #### L 501.9985, L501.2300, L501.5200, L100.0100, L500.4050 ####[facility] [address] [place], [address] ALT [Catalytic activity/Vol] 20 U/L Normal 16-61 [facility] Comment on above: Performed By: #### L 501.9985, L501.2300, L501.5200, L100.0100, L500.4050 ####[facility] [address] [place], [address] AST [Catalytic activity/Vol] 10 U/L Low 15-37 [facility] Comment on above: Performed By: #### L 501.9985, L501.2300, L501.5200, L100.0100, L500.4050 ####[facility] [address] [place], [address] Bilirubin [Mass/Vol] 0.50 mg/dL Normal 0.20-1.00 [facility] Comment on above: Result Comment: For patients on eltrombopag therapy, use of Dimension [place] TBIL is not recommended. Performed By: #### L 501.9985, L501.2300, L501.5200, L100.0100, L500.4050 ####[facility] [address] [place], [address] BUN/CRE 24.9 RATIO High 10-20 [facility] Comment on above: Performed By: #### L 501.9985, L501.2300, L501.5200, L100.0100, L500.4050 ####[facility] [address] [place], [address] CA,Total 8.9 mg/dL Normal 8.5-10.1 [facility] Comment on above: Performed By: #### L 501.9985, L501.2300, L501.5200, L100.0100, L500.4050 ####[facility] [address] [place], [address] Chloride [Moles/Vol] 110 mmol/L High 98-107 [facility] Comment on above: Performed By: #### L 501.9985, L501.2300, L501.5200, L100.0100, L500.4050 ####[facility] [address] [place], [address] CO2 [Moles/Vol] 24.0 mmol/L Normal 21.0-32.0 [facility] Comment on above: Performed By: #### L 501.9985, L501.2300, L501.5200, L100.0100, L500.4050 ####[facility] [address] [place], [address] Creatinine [Mass/Vol] 2.25 mg/dL High 0.70-1.30 [facility] Comment on above: Result Comment: The validity of the calculated GFR GFRAA in patients over70 years has not been determined. Clinical correlation isessential. Performed By: #### L 501.9985, L501.2300, L501.5200, L100.0100, L500.4050 ####[facility] [address] [place], [address] ECRCL 24.38 ml/min Normal [facility] Comment on above: Performed By: #### L 501.9985, L501.2300, L501.5200, L100.0100, L500.4050 ####[facility] [address] [place], [address] EST GFR - AA 36 mL/min Low >60 [facility] Comment on above: Result Comment: Afri can Guyanese GFR Calc Performed By: #### L 501.9985, L501.2300, L501.5200, L100.0100, L500.4050 ####[facility] [address] [place], [address] GAP 7 Normal 5-15 [facility] Comment on above: Performed By: #### L 501.9985, L501.2300, L501.5200, L100.0100, L500.4050 ####[facility] [address] [place], [address] GFR/1.73 sq M.predicted among non-blacks MDRD (S/P/Bld) [Vol rate/Area] 30 mL/min/{1.73_m2} Low >60 [facility] Comment on above: Result Comment: Non- GFR Calc Performed By: #### L 501.9985, L501.2300, L501.5200, L100.0100, L500.4050 ####[facility] [address] [place], [address] Globulin (S) [Mass/Vol] 3.5 g/dL Normal 2.2-4.2 [facility] Comment on above: Performed By: #### L 501.9985, L501.2300, L501.5200, L100.0100, L500.4050 ####[facility] [address] [place], [address] Glucose [Mass/Vol] 229 mg/dL High 74-106 [facility] Comment on above: Result Comment: Gluc ose result greater than or equal to 200 mg/dLsuggests DIABETES MELLITUS per A.D.A. criteria. Performed By: #### L 501.9985, L501.2300, L501.5200, L100.0100, L500.4050 ####[facility] [address] [place], [address] Potassium [Moles/Vol] 5.4 mmol/L High 3.5-5.1 [facility] Comment on above: Performed By: #### L 501.9985, L501.2300, L501.5200, L100.0100, L500.4050 ####[facility] [address] [place], [address] Sodium [Moles/Vol] 142 mmol/L Normal 136-145 [facility] Comment on above: Performed By: #### L 501.9985, L501.2300, L501.5200, L100.0100, L500.4050 ####[facility] [address] [place], [address] T PROT 6.6 g/dL Normal 6.4-8.2 [facility] Comment on above: Performed By: #### L 501.9985, L501.2300, L501.5200, L100.0100, L500.4050 ####[facility] [address] [place], [address] Urea nitrogen [Mass/Vol] 56 mg/dL High 7-18 [facility] Comment on above: Performed By: #### L 501.9985, L501.2300, L501.5200, L100.0100, L500.4050 ####[facility] [address] [place], [address] Ferritinon 02-03-2024 Ferritin [Mass/Vol] 25 ng/mL Low 26-388 [facility] Comment on above: Order Comment: Has P atbrian had X-rays with Contrast this admission? NN Performed By: #### L 506.0250, L503.6550, L501.9520, L501.4020, L503.6030 ####[facility] [address] [place], [address] Folates, (Folic Acid)on 01-11 FOLATES 12.80 ng/mL Normal 3.1-55.4 [facility] Comment on above: Order Comment: Has P atbrian had X-rays with Contrast this admission? NN Performed By: #### L 506.0250, L503.6550, L501.9520, L501.4020, L503.6030 ####[facility] [address] [place], [address] Hemoglobin A1con 02-03-2024 HbA1c (Bld) [Mass fraction] 5.7 % High 3.8-5.6 [facility] Comment on above: Result Comment: Norm al < 5.7 % Prediabetic 5.7 - 6.4 % Diabetic >or= 6.5 % Please note range changes. Performed By: #### L 501.9985, L501.2300, L501.5200, L100.0100, L500.4050 ####[facility] [address] [place], [address] Iron+Iron Binding Capacityon 02-03-2024 Iron [Mass/Vol] 61 ug/dL Low 65-175 [facility] Comment on above: Order Comment: Has Fransisco okeefe had X-rays with Contrast this admission? NN Performed By: #### L 506.0250, L503.6550, L501.9520, L501.4020, L503.6030 ####[facility] [address] [place], [address] IRON SATURATION 21.2 Normal 15.0-55.0 [facility] Comment on above: Order Comment: Has Fransisco okeefe had X-rays with Contrast this admission? NN Performed By: #### L 506.0250, L503.6550, L501.9520, L501.4020, L503.6030 ####[facility] [address] [place], [address] TIBC 288 ug/dL Normal 250-450 [facility] Comment on above: Order Comment: Has Fransisco okeefe had X-rays with Contrast this admission? NN Performed By: #### L 506.0250, L503.6550, L501.9520, L501.4020, L503.6030 ####[facility] [address] [place], [address] L501.4020on 02-03-2024 TROPONIN-I HS 37 pg/mL Normal 3.0-78.0 [facility] Comment on above: Order Comment: Has Fransisco okeefe had X-rays with Contrast this admission? NN Result Comment: Sara saleh Note: New Test Units and Gender Specific Reference Ranges. For more information see Policy Stat Procedure [place] High Sensitivity Troponin (TNIH) and attachments. Performed By: #### L 506.0250, L503.6550, L501.9520, L501.4020, L503.6030 ####[facility] [address] [place], [address] M100.678on 02-03-2024 M100.678 Pending SARS-CoV-2 (COVID 19) Negative INFLUENZA A Negative INFLUENZA B Negative RSV PCR Negative Normal [facility] Comment on above: Performed By: #### M 100.678 ####[facility] [address] [place], [address] Magnesiumon 02-03-2024 Magnesium [Mass/Vol] 2.0 mg/dL Normal 1.6-2.6 [facility] Comment on above: Performed By: #### L 501.9985, L501.2300, L501.5200, L100.0100, L500.4050 ####[facility] [address] [place], [address] Phosphoruson 02-03-2024 Phosphate [Mass/Vol] 2.6 mg/dL Normal 2.5-4.9 [facility] Comment on above: Performed By: #### L 501.9985, L501.2300, L501.5200, L100.0100, L500.4050 ####[facility] [address] [place], [address] Thyroid Stim Hormone (TSH)on 02-03-2024 TSH 4.220 uIU/mL High 0.358-3.740 [facility] Comment on above: Order Comment: Has P atient had X-rays with Contrast this admission? NN Performed By: #### L 506.0250, L503.6550, L501.9520, L501.4020, L503.6030 ####[facility] [address] [place], [address] Type AND Screenon 02-03-2024 ABO and Rh group Nom (Bld) Blood group A Rh(D) negative Normal [facility] Comment on above: Order Comment: A Performed By: #### B TS ####[facility] [address] [place], [address] Ab SCREEN GEL PENDING Normal [facility] Comment on above: Order Comment: A Performed By: #### B TS ####[facility] [address] [place], [address] 12 Lead EKGon 02-02-2024 12 Lead EKG Normal [facility] BNP,B-Type NATRIURETIC PEPTI Nico 02-02-2024 Natriuretic peptide B (Bld) [Mass/Vol] 188.6 pg/mL High 0-100 [facility] Comment on above: Performed By: #### L 100.0100, L501.5425, L500.2500, L503.6620 ####[facility] [address] [place], [address] Basic Metabolic Profile (BMP )on 02-02-2024 BUN/CRE 26.4 RATIO High 10-20 [facility] Comment on above: Order Comment: 1Y Performed By: #### L 100.0100, L501.5425, L500.2500, L503.6620 ####[facility] [address] [place], [address] CA,Total 8.9 mg/dL Normal 8.5-10.1 [facility] Comment on above: Order Comment: 1Y Performed By: #### L 100.0100, L501.5425, L500.2500, L503.6620 ####[facility] [address] [place], [address] Chloride [Moles/Vol] 112 mmol/L High 98-107 [facility] Comment on above: Order Comment: 1Y Performed By: #### L 100.0100, L501.5425, L500.2500, L503.6620 ####[facility] [address] [place], [address] CO2 [Moles/Vol] 27.0 mmol/L Normal 21.0-32.0 [facility] Comment on above: Order Comment: 1Y Performed By: #### L 100.0100, L501.5425, L500.2500, L503.6620 ####[facility] [address] [place], [address] Creatinine [Mass/Vol] 2.35 mg/dL High 0.70-1.30 [facility] Comment on above: Order Comment: 1Y Result Comment: The validity of the calculated GFR GFRAA in patients over70 years has not been determined. Clinical correlation isessential. Performed By: #### L 100.0100, L501.5425, L500.2500, L503.6620 ####[facility] [address] [place], [address] ECRCL 23.21 ml/min Normal [facility] Comment on above: Order Comment: 1Y Performed By: #### L 100.0100, L501.5425, L500.2500, L503.6620 ####[facility] [address] [place], [address] EST GFR - AA 34 mL/min Low >60 [facility] Comment on above: Order Comment: 1Y Result Comment: Afri can Guyanese GFR Calc Performed By: #### L 100.0100, L501.5425, L500.2500, L503.6620 ####[facility] [address] [place], [address] GAP 6 Normal 5-15 [facility] Comment on above: Order Comment: 1Y Performed By: #### L 100.0100, L501.5425, L500.2500, L503.6620 ####[facility] [address] [place], [address] GFR/1.73 sq M.predicted among non-blacks MDRD (S/P/Bld) [Vol rate/Area] 28 mL/min/{1.73_m2} Low >60 [facility] Comment on above: Order Comment: 1Y Result Comment: Non- GFR Calc Performed By: #### L 100.0100, L501.5425, L500.2500, L503.6620 ####[facility] [address] [place], [address] Glucose [Mass/Vol] 248 mg/dL High 74-106 [facility] Comment on above: Order Comment: 1Y Result Comment: Gluc ose result greater than or equal to 200 mg/dLsuggests DIABETES MELLITUS per A.D.A. criteria. Performed By: #### L 100.0100, L501.5425, L500.2500, L503.6620 ####[facility] [address] [place], [address] Potassium [Moles/Vol] 4.7 mmol/L Normal 3.5-5.1 [facility] Comment on above: Order Comment: 1Y Performed By: #### L 100.0100, L501.5425, L500.2500, L503.6620 ####[facility] [address] [place], [address] Sodium [Moles/Vol] 145 mmol/L Normal 136-145 [facility] Comment on above: Order Comment: 1Y Performed By: #### L 100.0100, L501.5425, L500.2500, L503.6620 ####[facility] [address] [place], [address] Urea nitrogen [Mass/Vol] 62 mg/dL High 7-18 [facility] Comment on above: Order Comment: 1Y Performed By: #### L 100.0100, L501.5425, L500.2500, L503.6620 ####[facility] [address] [place], [address] CBC W/Diff, Automatedon 11-2 -2023 Absolute Lymph 0.88 X10 3/uL Normal 0.83-4.51 [facility] Comment on above: Performed By: #### L 100.0100, L501.5425, L500.2500, L503.6620 ####[facility] [address] [place], [address] Absolute Neut 4.1 X10 3/uL Normal 2.0-7.7 [facility] Comment on above: Performed By: #### L 100.0100, L501.5425, L500.2500, [id number] ####[facility] [address] [place], [address] Basophils/100 WBC (Bld) 0.2 % Normal 0-1 [facility] Comment on above: Performed By: #### L 100.0100, L501.5425, L500.2500, [id number] ####[facility] [address] [place], [address] Eosinophils/100 WBC (Bld) 4.0 % Normal 0-5 [facility] Comment on above: Performed By: #### L 100.0100, L501.5425, L500.2500, [id number] ####[facility] [address] [place], [address] Erythrocyte distribution width (RBC) [Ratio] 15.0 % High 11.6-14.6 [facility] Comment on above: Performed By: #### L 100.0100, L501.5425, L500.2500, [id number] ####[facility] [address] [place], [address] Hematocrit (Bld) [Volume fraction] 24.2 % Low 40-54 [facility] Comment on above: Performed By: #### L 100.0100, L501.5425, L500.2500, [id number] ####[facility] [address] [place], [address] Hemoglobin (Bld) [Mass/Vol] 7.5 g/dL Low 13.0-16.5 [facility] Comment on above: Performed By: #### L 100.0100, L501.5425, L500.2500, [id number] ####[facility] [address] [place], [address] IG% 0.400 Normal 0.0-0.9 [facility] Comment on above: Result Comment: IG% - Immature Granulocytes (promyelocytes, myelocytes andmetamyelocytes) > 1% indicates that a LEFT SHIFT is Present. Performed By: #### L 100.0100, L501.5425, L500.2500, L503.6620 ####[facility] [address] [place], [address] Lymphocytes/100 WBC (Bld) 15.8 % Low 19-41 [facility] Comment on above: Performed By: #### L 100.0100, L501.5425, L500.2500, L503.6620 ####[facility] [address] [place], [address] MCH (RBC) [Entitic mass] 31.3 pg Normal 27.0-32.0 [facility] Comment on above: Performed By: #### L 100.0100, L501.5425, L500.2500, L503.6620 ####[facility] [address] [place], [address] MCHC (RBC) [Mass/Vol] 31.0 g/dL Low 32-36 [facility] Comment on above: Performed By: #### L 100.0100, L501.5425, L500.2500, L503.6620 ####[facility] [address] [place], [address] MCV (RBC) [Entitic vol] 100.8 fL High 80-94 [facility] Comment on above: Performed By: #### L 100.0100, L501.5425, L500.2500, L503.6620 ####[facility] [address] [place], [address] Monocytes/100 WBC (Bld) 6.8 % Normal 0-10 [facility] Comment on above: Performed By: #### L 100.0100, L501.5425, L500.2500, L503.6620 ####[facility] [address] [place], [address] Neutrophils/100 WBC (Bld) 72.8 % High 47-70 [facility] Comment on above: Performed By: #### L 100.0100, L501.5425, L500.2500, L503.6620 ####[facility] [address] [place], [address] Nucleated RBC (Bld) [#/Vol] 0 10*3/uL Normal 0-5 [facility] Comment on above: Performed By: #### L 100.0100, L501.5425, L500.2500, L503.6620 ####[facility] [address] [place], [address] Platelet mean volume (Bld) [Entitic vol] 10.7 fL Normal 6.2-12.0 [facility] Comment on above: Performed By: #### L 100.0100, L501.5425, L500.2500, L503.6620 ####[facility] [address] [place], [address] Platelets (Bld) [#/Vol] 115 10*3/uL Low 150-450 [facility] Comment on above: Performed By: #### L 100.0100, L501.5425, L500.2500, L503.6620 ####[facility] [address] [place], [address] RBC (Bld) [#/Vol] 2.40 10*6/uL Low 4.6-6.2 [facility] Comment on above: Performed By: #### L 100.0100, L501.5425, L500.2500, L503.6620 ####[facility] [address] [place], [address] RDW SD 54.6 fl High 35.1-43.9 [facility] Comment on above: Performed By: #### L 100.0100, L501.5425, L500.2500, L503.6620 ####[facility] [address] [place], [address] WBC (Bld) [#/Vol] 5.6 10*3/uL Normal 4.4-11.0 [facility] Comment on above: Performed By: #### L 100.0100, L501.5425, L500.2500, L503.6620 ####[facility] [address] [place], [address] Chest 1 View (Portable)on Chest 1 View (Portable) Normal [facility] Emergency Department Summary on 02-02-2024 Emergency Department Summary Normal [facility] H AND P Exam - Hospitaliston 02-02-2024 H&P Exam - Hospitalist Normal [facility] L501.5425on 02-02-2024 TROPONIN-I HS 28 pg/mL Normal 3.0-78.0 [facility] Comment on above: Order Comment: 1Y Result Comment: Sara saleh Note: New Test Units and Gender Specific Reference Ranges. For more information see Policy Stat Procedure [place] High Sensitivity Troponin (TNIH) and attachments. Performed By: #### L 100.0100, L501.5425, L500.2500, L503.6620 ####[facility] [address] [place], [address] Stool Occult Blood iFOBon STOB Negative Normal [facility] Comment on above: Performed By: #### M 100.7900 ####[facility] [address] [place], [address] CBC-Complete Blood Cnt No Di ffon 01-22-2024 Erythrocyte distribution width (RBC) [Ratio] 13.5 % Normal 11.6-14.6 [facility] Comment on above: Order Comment: CC CM P TO DR. YURIDIA HERNANDEZ Performed By: #### L 500.4050, L509.1000, L100.0500, L506.1000 ####[facility] [address] [place], [address] Hematocrit (Bld) [Volume fraction] 29.4 % Low 40-54 [facility] Comment on above: Order Comment: CC CM P TO DR. YURIDIA HERNANDEZ Performed By: #### L 500.4050, L509.1000, L100.0500, L506.1000 ####[facility] [address] [place], [address] Hemoglobin (Bld) [Mass/Vol] 9.4 g/dL Low 13.0-16.5 [facility] Comment on above: Order Comment: CC CM P TO DR. YURIDIA HERNANDEZ Performed By: #### L 500.4050, L509.1000, L100.0500, L506.1000 ####[facility] [address] [place], [address] MCH (RBC) [Entitic mass] 30.6 pg Normal 27.0-32.0 [facility] Comment on above: Order Comment: CC CM P TO DR. YURIDIA HERNANDEZ Performed By: #### L 500.4050, L509.1000, L100.0500, L506.1000 ####[facility] [address] [place], [address] MCHC (RBC) [Mass/Vol] 32.0 g/dL Normal 32-36 [facility] Comment on above: Order Comment: CC CM P TO DR. YURIDIA HERNANDEZ Performed By: #### L 500.4050, L509.1000, L100.0500, L506.1000 ####[facility] [address] [place], [address] MCV (RBC) [Entitic vol] 95.8 fL High 80-94 [facility] Comment on above: Order Comment: CC CM P TO DR. YURIDIA HERNANDEZ Performed By: #### L 500.4050, L509.1000, L100.0500, L506.1000 ####[facility] [address] [place], [address] Platelet mean volume (Bld) [Entitic vol] 11.4 fL Normal 6.2-12.0 [facility] Comment on above: Order Comment: CC CM P TO DR. YURIDIA HERNANDEZ Performed By: #### L 500.4050, L509.1000, L100.0500, L506.1000 ####[facility] [address] [place], [address] Platelets (Bld) [#/Vol] 92 10*3/uL Low 150-450 [facility] Comment on above: Order Comment: CC CM P TO DR. YURIDIA HERNANDEZ Performed By: #### L 500.4050, L509.1000, L100.0500, L506.1000 ####[facility] [address] [place], [address] RBC (Bld) [#/Vol] 3.07 10*6/uL Low 4.6-6.2 [facility] Comment on above: Order Comment: CC CM P TO DR. YURIDIA HERNANDEZ Performed By: #### L 500.4050, L509.1000, L100.0500, L506.1000 ####[facility] [address] [place], [address] RDW SD 47.8 fl High 35.1-43.9 [facility] Comment on above: Order Comment: CC CM P TO DR. YURIDIA HERNANDEZ Performed By: #### L 500.4050, L509.1000, L100.0500, L506.1000 ####[facility] [address] [place], [address] WBC (Bld) [#/Vol] 8.8 10*3/uL Normal 4.4-11.0 [facility] Comment on above: Order Comment: CC CM P TO DR. YURIDIA HERNANDEZ Performed By: #### L 500.4050, L509.1000, L100.0500, L506.1000 ####[facility] [address] [place], [address] Comprehensive Metabolic Prof [facility] 01-22-2024 Albumin [Mass/Vol] 3.5 g/dL Normal 3.2-5.0 [facility] Comment on above: Order Comment: CC CM P TO DR. YURIDIA HERNANDEZ Performed By: #### L 500.4050, L509.1000, L100.0500, L506.1000 ####[facility] [address] [place], [address] Albumin/Globulin [Mass ratio] 1.0 {ratio} Normal 0.9-2.4 [facility] Comment on above: Order Comment: CC CM P TO DR. YURIDIA HERNANDEZ Performed By: #### L 500.4050, L509.1000, L100.0500, L506.1000 ####[facility] [address] [place], [address] ALK P 67 U/L Normal 45-117 [facility] Comment on above: Order Comment: CC CM P TO DR. YURIDIA HERNANDEZ Performed By: #### L 500.4050, L509.1000, L100.0500, L506.1000 ####[facility] [address] [place], [address] ALT [Catalytic activity/Vol] 22 U/L Normal 16-61 [facility] Comment on above: Order Comment: CC CM P TO DR. YURIDIA HERNANDEZ Performed By: #### L 500.4050, L509.1000, L100.0500, L506.1000 ####[facility] [address] [place], [address] AST [Catalytic activity/Vol] 12 U/L Low 15-37 [facility] Comment on above: Order Comment: CC CM P TO DR. YURIDIA HERNANDEZ Performed By: #### L 500.4050, L509.1000, L100.0500, L506.1000 ####[facility] [address] [place], [address] Bilirubin [Mass/Vol] 0.60 mg/dL Normal 0.20-1.00 [facility] Comment on above: Order Comment: CC CM P TO DR. YURIDIA HERNANDEZ Result Comment: For patients on eltrombopag therapy, use of Dimension [place] TBIL is not recommended. Performed By: #### L 500.4050, L509.1000, L100.0500, L506.1000 ####[facility] [address] [place], [address] BUN/CRE 32.0 RATIO High 10-20 [facility] Comment on above: Order Comment: CC CM P TO DR. YURIDIA HERNANDEZ Performed By: #### L 500.4050, L509.1000, L100.0500, L506.1000 ####[facility] [address] [place], [address] CA,Total 9.4 mg/dL Normal 8.5-10.1 [facility] Comment on above: Order Comment: CC CM P TO DR. YURIDIA HERNANDEZ Performed By: #### L 500.4050, L509.1000, L100.0500, L506.1000 ####[facility] [address] [place], [address] Chloride [Moles/Vol] 106 mmol/L Normal 98-107 [facility] Comment on above: Order Comment: CC CM P TO DR. YURIDIA HERNANDEZ Performed By: #### L 500.4050, L509.1000, L100.0500, L506.1000 ####[facility] [address] [place], [address] CO2 [Moles/Vol] 28.0 mmol/L Normal 21.0-32.0 [facility] Comment on above: Order Comment: CC CM P TO DR. YURIDIA HERNANDEZ Performed By: #### L 500.4050, L509.1000, L100.0500, L506.1000 ####[facility] [address] [place], [address] Creatinine [Mass/Vol] 2.31 mg/dL High 0.70-1.30 [facility] Comment on above: Order Comment: CC CM P TO DR. YURIDIA HERNANDEZ Result Comment: The validity of the calculated GFR GFRAA in patients over70 years has not been determined. Clinical correlation isessential. Performed By: #### L 500.4050, L509.1000, L100.0500, L506.1000 ####[facility] [address] [place], [address] EST GFR - AA 35 mL/min Low >60 [facility] Comment on above: Order Comment: CC CM P TO DR. YURIDIA HERNANDEZ Result Comment: Afri can Guyanese GFR Calc Performed By: #### L 500.4050, L509.1000, L100.0500, L506.1000 ####[facility] [address] [place], [address] GAP 8 Normal 5-15 [facility] Comment on above: Order Comment: CC CM P TO DR. YURIDIA HERNANDEZ Performed By: #### L 500.4050, L509.1000, L100.0500, L506.1000 ####[facility] [address] [place], [address] GFR/1.73 sq M.predicted among non-blacks MDRD (S/P/Bld) [Vol rate/Area] 29 mL/min/{1.73_m2} Low >60 [facility] Comment on above: Order Comment: CC CM P TO DR. YURIDIA HERNANDEZ Result Comment: Non- GFR Calc Performed By: #### L 500.4050, L509.1000, L100.0500, L506.1000 ####[facility] [address] [place], [address] Globulin (S) [Mass/Vol] 3.5 g/dL Normal 2.2-4.2 [facility] Comment on above: Order Comment: CC CM P TO DR. YURIDIA HERNANDEZ Performed By: #### L 500.4050, L509.1000, L100.0500, L506.1000 ####[facility] [address] [place], [address] Glucose [Mass/Vol] 191 mg/dL High 74-106 [facility] Comment on above: Order Comment: CC CM P TO DR. YURIDIA HERNANDEZ Result Comment: Fast ing Glucose result greater than or equal to 126 mg/dLsuggests DIABETES MELLITUS per A.D.A. criteria. Performed By: #### L 500.4050, L509.1000, L100.0500, L506.1000 ####[facility] [address] [place], [address] Potassium [Moles/Vol] 4.0 mmol/L Normal 3.5-5.1 [facility] Comment on above: Order Comment: CC CM P TO DR. YURIDIA HERNANDEZ Performed By: #### L 500.4050, L509.1000, L100.0500, L506.1000 ####[facility] [address] [place], [address] Sodium [Moles/Vol] 142 mmol/L Normal 136-145 [facility] Comment on above: Order Comment: CC CM P TO DR. YURIDIA HERNANDEZ Performed By: #### L 500.4050, L509.1000, L100.0500, L506.1000 ####[facility] [address] [place], [address] T PROT 7.0 g/dL Normal 6.4-8.2 [facility] Comment on above: Order Comment: CC CM P TO DR. YURIDIA HERNANDEZ Performed By: #### L 500.4050, L509.1000, L100.0500, L506.1000 ####[facility] [address] [place], [address] Urea nitrogen [Mass/Vol] 74 mg/dL High 7-18 [facility] Comment on above: Order Comment: CC CM P TO DR. YURIDIA HERNANDEZ Performed By: #### L 500.4050, L509.1000, L100.0500, L506.1000 ####[facility] [address] [place], [address] Hemoglobin A1con 01-22-2024 HbA1c (Bld) [Mass fraction] 6.1 % High 3.8-5.6 [facility] Comment on above: Order Comment: CC AMY BS TO DR. Fidencio WASHBURN Result Comment: Norm al < 5.7 % Prediabetic 5.7 - 6.4 % Diabetic >or= 6.5 % Please note range changes. Performed By: #### L 501.9985, L500.4100 ####[facility] [address] [place], [address] Lipid Profileon 01-22-2024 Cholesterol [Mass/Vol] 180 mg/dL Normal 200 [facility] Comment on above: Order Comment: CC LA BS TO DR. Fidencio WASHBURN Result Comment: <200 mg/dL Desirable 200-240 mg/dL Borderline >240 mg/dL High Risk Performed By: #### L 501.9985, L500.4100 ####[facility] [address] [place], [address] Cholesterol in HDL [Mass/Vol] 42 mg/dL Normal [facility] Comment on above: Order Comment: CC LA BS TO DR. Fidencio WASHBURN Result Comment: The drugs N-Acetylcysteine and Metamizole may falselydepress this assay. Reference Range HDL <40 mg/dL Low HDL Cholesterol HDL >or= 60 mg/dL High HDL Cholesterol Performed By: #### L 501.9985, L500.4100 ####[facility] [address] [place], [address] Cholesterol in LDL [Mass/Vol] 95 mg/dL Normal 0-130 [facility] Comment on above: Order Comment: CC LA BS TO DR. Fidencio WASHBURN Performed By: #### L 501.9985, L500.4100 ####[facility] [address] [place], [address] Cholesterol in VLDL [Mass/Vol] 43 mg/dL High 5-40 [facility] Comment on above: Order Comment: CC LA BS TO DR. Fidencio WASHBURN Performed By: #### L 501.9985, L500.4100 ####[facility] [address] [place], [address] Triglyceride [Mass/Vol] 216 mg/dL High [facility] Comment on above: Order Comment: CC LA BS TO DR. Fidencio WASHBURN Result Comment: The drugs N-Acetylcysteine and Metamizole may falselydepress this assay.Serum Triglycerides Reference Interval Normal <150 mg/dL Borderline high 150 - 199 mg/dL High 200 - 499 mg/dL Very High > or = 500 mg/dL Performed By: #### L 501.9985, L500.4100 ####[facility] [address] [place], [address] PTHINon 01-22-2024 PTH 186.8 pg/mL High 18.4-80.1 [facility] Comment on above: Order Comment: CC CM P TO DR. YURIDIA HERNANDEZ Performed By: #### L 500.4050, L509.1000, L100.0500, L506.1000 ####[facility] [address] [place], [address] Vitamin D,25 Hydroxyon 01-21 Vitamin D 25-OH 34.1 ng/mL Normal [facility] Comment on above: Order Comment: CC CM P TO DR. YURIDIA HERNANDEZ Result Comment: Celia min D 25(OH) Status Range Deficiency <20 ng/mL (50nmol/L) Insufficiency 20 - 30 ng/mL (50 - 75 nmol/L) Sufficiency 30 - 100 ng/mL (75 - 250 nmol/L) Toxicity >100 ng/mL (>250 nmol/L) Performed By: #### L 500.4050, L509.1000, L100.0500, L506.1000 ####[facility] [address] [place], [address] 12 Lead EKGon 01-10-2024 12 Lead EKG Normal [facility] Basic Metabolic Profile (BMP )on 01-10-2024 BUN/CRE 36.3 RATIO High 10-20 [facility] Comment on above: Performed By: #### L 100.0100, L500.2500 ####[facility] [address] [place], [address] CA,Total 8.6 mg/dL Normal 8.5-10.1 [facility] Comment on above: Performed By: #### L 100.0100, L500.2500 ####[facility] [address] [place], [address] Chloride [Moles/Vol] 110 mmol/L High 98-107 [facility] Comment on above: Performed By: #### L 100.0100, L500.2500 ####[facility] [address] [place], [address] CO2 [Moles/Vol] 28.0 mmol/L Normal 21.0-32.0 [facility] Comment on above: Performed By: #### L 100.0100, L500.2500 ####[facility] [address] [place], [address] Creatinine [Mass/Vol] 2.48 mg/dL High 0.70-1.30 [facility] Comment on above: Result Comment: The validity of the calculated GFR GFRAA in patients over70 years has not been determined. Clinical correlation isessential. Performed By: #### L 100.0100, L500.2500 ####[facility] [address] [place], [address] ECRCL 21.44 ml/min Normal [facility] Comment on above: Performed By: #### L 100.0100, L500.2500 ####[facility] [address] [place], [address] EST GFR - AA 32 mL/min Low >60 [facility] Comment on above: Result Comment: Afri can Guyanese GFR Calc Performed By: #### L 100.0100, L500.2500 ####[facility] [address] [place], [address] GAP 7 Normal 5-15 [facility] Comment on above: Performed By: #### L 100.0100, L500.2500 ####[facility] [address] [place], [address] GFR/1.73 sq M.predicted among non-blacks MDRD (S/P/Bld) [Vol rate/Area] 27 mL/min/{1.73_m2} Low >60 [facility] Comment on above: Result Comment: Non- GFR Calc Performed By: #### L 100.0100, L500.2500 ####[facility] [address] [place], [address] Glucose [Mass/Vol] 175 mg/dL High 74-106 [facility] Comment on above: Result Comment: Fast ing Glucose result greater than or equal to 126 mg/dLsuggests DIABETES MELLITUS per A.D.A. criteria. Performed By: #### L 100.0100, L500.2500 ####[facility] [address] [place], [address] Potassium [Moles/Vol] 4.5 mmol/L Normal 3.5-5.1 [facility] Comment on above: Performed By: #### L 100.0100, L500.2500 ####[facility] [address] [place], [address] Sodium [Moles/Vol] 145 mmol/L Normal 136-145 [facility] Comment on above: Performed By: #### L 100.0100, L500.2500 ####[facility] [address] [place], [address] Urea nitrogen [Mass/Vol] 90 mg/dL High 7-18 [facility] Comment on above: Performed By: #### L 100.0100, L500.2500 ####[facility] [address] [place], [address] CBC W/Diff, Automatedon 12-12 PLT EST MOD DEC Normal ADEQ [facility] Comment on above: Result Comment: AMENDED REPORT 01/10/241950 PLT EST previously reported as: MOD DEC Performed By: #### L 100.0100, L500.2500 ####[facility] [address] [place], [address] Chest 1 View (Portable)on Chest 1 View (Portable) Normal [facility] Emergency Department Summary on 01-10-2024 Emergency Department Summary Normal [facility] M100.678on 01-10-2024 M100.678 Pending SARS-CoV-2 (COVID 19) Negative INFLUENZA A Negative INFLUENZA B Negative RSV PCR Negative Normal [facility] Comment on above: Performed By: #### M 100.678 ####[facility] [address] [place], [address] CBC W/Diff, Automatedon 12-12 Absolute Lymph 1.19 X10 3/uL Normal 0.83-4.51 [facility] Comment on above: Performed By: #### L 100.0100, L503.6030 ####[facility] [address] [place], [address] Absolute Neut 3.4 X10 3/uL Normal 2.0-7.7 [facility] Comment on above: Performed By: #### L 100.0100, L503.6030 ####[facility] [address] [place], [address] Basophils/100 WBC (Bld) 0.4 % Normal 0-1 [facility] Comment on above: Performed By: #### L 100.0100, L503.6030 ####[facility] [address] [place], [address] Eosinophils/100 WBC (Bld) 8.1 % High 0-5 [facility] Comment on above: Performed By: #### L 100.0100, L503.6030 ####[facility] [address] [place], [address] Erythrocyte distribution width (RBC) [Ratio] 14.0 % Normal 11.6-14.6 [facility] Comment on above: Performed By: #### L 100.0100, L503.6030 ####[facility] [address] [place], [address] Hematocrit (Bld) [Volume fraction] 29.9 % Low 40-54 [facility] Comment on above: Performed By: #### L 100.0100, L503.6030 ####[facility] [address] [place], [address] Hemoglobin (Bld) [Mass/Vol] 9.4 g/dL Low 13.0-16.5 [facility] Comment on above: Performed By: #### L 100.0100, L503.6030 ####[facility] [address] [place], [address] IG% 0.400 Normal 0.0-0.9 [facility] Comment on above: Result Comment: IG% - Immature Granulocytes (promyelocytes, myelocytes andmetamyelocytes) > 1% indicates that a LEFT SHIFT is Present. Performed By: #### L 100.0100, L503.6030 ####[facility] [address] [place], [address] Lymphocytes/100 WBC (Bld) 21.4 % Normal 19-41 [facility] Comment on above: Performed By: #### L 100.0100, L503.6030 ####[facility] [address] [place], [address] MCH (RBC) [Entitic mass] 30.3 pg Normal 27.0-32.0 [facility] Comment on above: Performed By: #### L 100.0100, L503.6030 ####[facility] [address] [place], [address] MCHC (RBC) [Mass/Vol] 31.4 g/dL Low 32-36 [facility] Comment on above: Performed By: #### L 100.0100, L503.6030 ####[facility] [address] [place], [address] MCV (RBC) [Entitic vol] 96.5 fL High 80-94 [facility] Comment on above: Performed By: #### L 100.0100, L503.6030 ####[facility] [address] [place], [address] Monocytes/100 WBC (Bld) 8.4 % Normal 0-10 [facility] Comment on above: Performed By: #### L 100.0100, L503.6030 ####[facility] [address] [place], [address] Neutrophils/100 WBC (Bld) 61.3 % Normal 47-70 [facility] Comment on above: Performed By: #### L 100.0100, L503.6030 ####[facility] [address] [place], [address] Nucleated RBC (Bld) [#/Vol] 0 10*3/uL Normal 0-5 [facility] Comment on above: Performed By: #### L 100.0100, L503.6030 ####[facility] [address] [place], [address] Platelet mean volume (Bld) [Entitic vol] 10.6 fL Normal 6.2-12.0 [facility] Comment on above: Performed By: #### L 100.0100, L503.6030 ####[facility] [address] [place], [address] Platelets (Bld) [#/Vol] 102 10*3/uL Low 150-450 [facility] Comment on above: Performed By: #### L 100.0100, L503.6030 ####[facility] [address] [place], [address] RBC (Bld) [#/Vol] 3.10 10*6/uL Low 4.6-6.2 [facility] Comment on above: Performed By: #### L 100.0100, L503.6030 ####[facility] [address] [place], [address] RDW SD 48.8 fl High 35.1-43.9 [facility] Comment on above: Performed By: #### L 100.0100, L503.6030 ####[facility] [address] [place], [address] WBC (Bld) [#/Vol] 5.6 10*3/uL Normal 4.4-11.0 [facility] Comment on above: Performed By: #### L 100.0100, L503.6030 ####[facility] [address] [place], [address] Comprehensive Metabolic Prof ilon 01-09-2024 Albumin [Mass/Vol] 3.4 g/dL Normal 3.2-5.0 [facility] Comment on above: Performed By: #### L 506.1000, L500.4050, L509.1000 ####[facility] [address] [place], [address] Albumin/Globulin [Mass ratio] 0.9 {ratio} Normal 0.9-2.4 [facility] Comment on above: Performed By: #### L 506.1000, L500.4050, L509.1000 ####[facility] [address] [place], [address] ALK P 68 U/L Normal 45-117 [facility] Comment on above: Performed By: #### L 506.1000, L500.4050, L509.1000 ####[facility] [address] [place], [address] ALT [Catalytic activity/Vol] 25 U/L Normal 16-61 [facility] Comment on above: Performed By: #### L 506.1000, L500.4050, L509.1000 ####[facility] [address] [place], [address] AST [Catalytic activity/Vol] 16 U/L Normal 15-37 [facility] Comment on above: Performed By: #### L 506.1000, L500.4050, L509.1000 ####[facility] [address] [place], [address] Bilirubin [Mass/Vol] 0.50 mg/dL Normal 0.20-1.00 [facility] Comment on above: Result Comment: For patients on eltrombopag therapy, use of Dimension [place] TBIL is not recommended. Performed By: #### L 506.1000, L500.4050, L509.1000 ####[facility] [address] [place], [address] BUN/CRE 37.2 RATIO High 10-20 [facility] Comment on above: Performed By: #### L 506.1000, L500.4050, L509.1000 ####[facility] [address] [place], [address] CA,Total 9.0 mg/dL Normal 8.5-10.1 [facility] Comment on above: Performed By: #### L 506.1000, L500.4050, L509.1000 ####[facility] [address] [place], [address] Chloride [Moles/Vol] 108 mmol/L High 98-107 [facility] Comment on above: Performed By: #### L 506.1000, L500.4050, L509.1000 ####[facility] [address] [place], [address] CO2 [Moles/Vol] 32.0 mmol/L Normal 21.0-32.0 [facility] Comment on above: Performed By: #### L 506.1000, L500.4050, L509.1000 ####[facility] [address] [place], [address] Creatinine [Mass/Vol] 2.42 mg/dL High 0.70-1.30 [facility] Comment on above: Result Comment: The validity of the calculated GFR GFRAA in patients over70 years has not been determined. Clinical correlation isessential. Performed By: #### L 506.1000, L500.4050, L509.1000 ####[facility] [address] [place], [address] EST GFR - AA 33 mL/min Low >60 [facility] Comment on above: Result Comment: Afri can Guyanese GFR Calc Performed By: #### L 506.1000, L500.4050, L509.1000 ####[facility] [address] [place], [address] GAP 3 Low 5-15 [facility] Comment on above: Performed By: #### L 506.1000, L500.4050, L509.1000 ####[facility] [address] [place], [address] GFR/1.73 sq M.predicted among non-blacks MDRD (S/P/Bld) [Vol rate/Area] 27 mL/min/{1.73_m2} Low >60 [facility] Comment on above: Result Comment: Non- GFR Calc Performed By: #### L 506.1000, L500.4050, L509.1000 ####[facility] [address] [place], [address] Globulin (S) [Mass/Vol] 3.6 g/dL Normal 2.2-4.2 [facility] Comment on above: Performed By: #### L 506.1000, L500.4050, L509.1000 ####[facility] [address] [place], [address] Glucose [Mass/Vol] 79 mg/dL Normal 74-106 [facility] Comment on above: Performed By: #### L 506.1000, L500.4050, L509.1000 ####[facility] [address] [place], [address] Potassium [Moles/Vol] 4.5 mmol/L Normal 3.5-5.1 [facility] Comment on above: Performed By: #### L 506.1000, L500.4050, L509.1000 ####[facility] [address] [place], [address] Sodium [Moles/Vol] 143 mmol/L Normal 136-145 [facility] Comment on above: Performed By: #### L 506.1000, L500.4050, L509.1000 ####[facility] [address] [place], [address] T PROT 7.0 g/dL Normal 6.4-8.2 [facility] Comment on above: Performed By: #### L 506.1000, L500.4050, L509.1000 ####[facility] [address] [place], [address] Urea nitrogen [Mass/Vol] 90 mg/dL High 7-18 [facility] Comment on above: Performed By: #### L 506.1000, L500.4050, L509.1000 ####[facility] [address] [place], [address] Gastroenterology Visit Repor ton 01-09-2024 Gastroenterology Visit Report Normal [facility] Iron+Iron Binding Capacityon 01-09-2024 Iron [Mass/Vol] 75 ug/dL Normal 65-175 [facility] Comment on above: Performed By: #### L 100.0100, L503.6030 ####[facility] [address] [place], [address] IRON SATURATION 26.0 Normal 15.0-55.0 [facility] Comment on above: Performed By: #### L 100.0100, L503.6030 ####[facility] [address] [place], [address] TIBC 289 ug/dL Normal 250-450 [facility] Comment on above: Performed By: #### L 100.0100, L503.6030 ####[facility] [address] [place], [address] PTHINon 01-09-2024 PTH 196.4 pg/mL High 18.4-80.1 [facility] Comment on above: Performed By: #### L 506.1000, L500.4050, L509.1000 ####[facility] [address] [place], [address] Vitamin D,25 Hydroxyon 01-08 Vitamin D 25-OH 33.8 ng/mL Normal [facility] Comment on above: Result Comment: Celia min D 25(OH) Status Range Deficiency <20 ng/mL (50nmol/L) Insufficiency 20 - 30 ng/mL (50 - 75 nmol/L) Sufficiency 30 - 100 ng/mL (75 - 250 nmol/L) Toxicity >100 ng/mL (>250 nmol/L) Performed By: #### L 506.1000, L500.4050, L509.1000 ####[facility] [address] [place], [address] L5000.0010on 01-01-2024 Natriuretic peptide B (Bld) [Mass/Vol] 57.9 pg/mL Normal 0.0-100.0 [facility] Comment on above: Order Comment: Speci men Comment: A duplicate report has been generateddue to demographicSpecimen Comment: updates. Result Comment: [employer] XP methodologyPerformed at: - [facility] [address] [id number] Director: Tanmay Damon PhD, Phone: [phone] Performed By: #### L 100.0100, L501.4020, L5000.0010, L500.2500 ####[facility] [address] [place], [address] EGD Reporton 12-31-2023 EGD Report Normal [facility] Bedside Glucoseon 12-28-2023 FINGERSTICK GLU 192 mg/dL High 74-106 [facility] Comment on above: Result Comment: MYKE GEMENT OF PATIENT CARE PER NURSING PROTOCOL Performed By: #### L 501.080 ####[facility] [address] [place], [address] FINGERSTICK GLU 116 mg/dL High 74-106 [facility] Comment on above: Result Comment: MYKE GEMENT OF PATIENT CARE PER NURSING PROTOCOL Performed By: #### L 501.080 ####[facility] [address] [place], [address] CBC W/Diff, Automatedon 12-10 Absolute Lymph 0.92 X10 3/uL Normal 0.83-4.51 [facility] Comment on above: Performed By: #### L 100.0100 ####[facility] [address] [place], [address] Absolute Neut 3.8 X10 3/uL Normal 2.0-7.7 [facility] Comment on above: Performed By: #### L 100.0100 ####[facility] [address] [place], [address] Basophils/100 WBC (Bld) 0.7 % Normal 0-1 [facility] Comment on above: Performed By: #### L 100.0100 ####[facility] [address] [place], [address] Eosinophils/100 WBC (Bld) 3.8 % Normal 0-5 [facility] Comment on above: Performed By: #### L 100.0100 ####[facility] [address] [place], [address] Erythrocyte distribution width (RBC) [Ratio] 13.6 % Normal 11.6-14.6 [facility] Comment on above: Performed By: #### L 100.0100 ####[facility] [address] [place], [address] Hematocrit (Bld) [Volume fraction] 23.3 % Low 40-54 [facility] Comment on above: Performed By: #### L 100.0100 ####[facility] [address] [place], [address] Hemoglobin (Bld) [Mass/Vol] 7.7 g/dL Low 13.0-16.5 [facility] Comment on above: Performed By: #### L 100.0100 ####[facility] [address] [place], [address] IG% 0.400 Normal 0.0-0.9 [facility] Comment on above: Result Comment: IG% - Immature Granulocytes (promyelocytes, myelocytes andmetamyelocytes) > 1% indicates that a LEFT SHIFT is Present. Performed By: #### L 100.0100 ####[facility] [address], [address] Lymphocytes/100 WBC (Bld) 16.5 % Low 19-41 [facility] Comment on above: Performed By: #### L 100.0100 ####[facility] [address] [place], [address] MCH (RBC) [Entitic mass] 31.0 pg Normal 27.0-32.0 [facility] Comment on above: Performed By: #### L 100.0100 ####[facility] [address] [place], [address] MCHC (RBC) [Mass/Vol] 33.0 g/dL Normal 32-36 [facility] Comment on above: Performed By: #### L 100.0100 ####[facility] [address] [place], [address] MCV (RBC) [Entitic vol] 94.0 fL Normal 80-94 [facility] Comment on above: Performed By: #### L 100.0100 ####[facility] [address] [place], [address] Monocytes/100 WBC (Bld) 9.7 % Normal 0-10 [facility] Comment on above: Performed By: #### L 100.0100 ####[facility] [address] [place], [address] Neutrophils/100 WBC (Bld) 68.9 % Normal 47-70 [facility] Comment on above: Performed By: #### L 100.0100 ####[facility] [address] [place], [address] Nucleated RBC (Bld) [#/Vol] 0 10*3/uL Normal 0-5 [facility] Comment on above: Performed By: #### L 100.0100 ####[facility] [address] [place], [address] Platelet mean volume (Bld) [Entitic vol] 11.3 fL Normal 6.2-12.0 [facility] Comment on above: Performed By: #### L 100.0100 ####[facility] [address] [place], [address] Platelets (Bld) [#/Vol] 108 10*3/uL Low 150-450 [facility] Comment on above: Performed By: #### L 100.0100 ####[facility] [address] [place], [address] RBC (Bld) [#/Vol] 2.48 10*6/uL Low 4.6-6.2 [facility] Comment on above: Performed By: #### L 100.0100 ####[facility] [address] [place], [address] RDW SD 46.5 fl High 35.1-43.9 [facility] Comment on above: Performed By: #### L 100.0100 ####[facility] [address] [place], [address] WBC (Bld) [#/Vol] 5.6 10*3/uL Normal 4.4-11.0 [facility] Comment on above: Performed By: #### L 100.0100 ####[facility] [address] [place], [address] Discharge Instructionon 12-10 Discharge Instruction Normal [facility] Bedside Glucoseon 12-27-2023 FINGERSTICK GLU 159 mg/dL High 74-106 [facility] Comment on above: Result Comment: MYKE GEMENT OF PATIENT CARE PER NURSING PROTOCOL Performed By: #### L 501.080 ####[facility] [address] [place], [address] FINGERSTICK GLU 168 mg/dL High 74-106 [facility] Comment on above: Result Comment: MYKE GEMENT OF PATIENT CARE PER NURSING PROTOCOL Performed By: #### L 501.080 ####[facility] [address] [place], [address] FINGERSTICK GLU 155 mg/dL High 74-106 [facility] Comment on above: Result Comment: MYKE GEMENT OF PATIENT CARE PER NURSING PROTOCOL Performed By: #### L 501.080 ####[facility] [address] [place], [address] FINGERSTICK GLU 143 mg/dL High 74-106 [facility] Comment on above: Result Comment: MYKE GEMENT OF PATIENT CARE PER NURSING PROTOCOL Performed By: #### L 501.080 ####[facility] [address] [place], [address] FINGERSTICK GLU 193 mg/dL High 74-106 [facility] Comment on above: Result Comment: MYKE GEMENT OF PATIENT CARE PER NURSING PROTOCOL Performed By: #### L 501.080 ####[facility] [address] [place], [address] CBC W/Diff, Automatedon 12-10 Absolute Lymph 1.13 X10 3/uL Normal 0.83-4.51 [facility] Comment on above: Performed By: #### L 100.0100 ####[facility] [address] [place], [address] Absolute Neut 4.0 X10 3/uL Normal 2.0-7.7 [facility] Comment on above: Performed By: #### L 100.0100 ####[facility] [address] [place], [address] Basophils/100 WBC (Bld) 0.5 % Normal 0-1 [facility] Comment on above: Performed By: #### L 100.0100 ####[facility] [address] [place], [address] Eosinophils/100 WBC (Bld) 4.6 % Normal 0-5 [facility] Comment on above: Performed By: #### L 100.0100 ####[facility] [address] [place], [address] Erythrocyte distribution width (RBC) [Ratio] 13.6 % Normal 11.6-14.6 [facility] Comment on above: Performed By: #### L 100.0100 ####[facility] [address] [place], [address] Hematocrit (Bld) [Volume fraction] 24.1 % Low 40-54 [facility] Comment on above: Performed By: #### L 100.0100 ####[facility] [address] [place], [address] Hemoglobin (Bld) [Mass/Vol] 7.8 g/dL Low 13.0-16.5 [facility] Comment on above: Performed By: #### L 100.0100 ####[facility] [address] [place], [address] IG% 0.300 Normal 0.0-0.9 [facility] Comment on above: Result Comment: IG% - Immature Granulocytes (promyelocytes, myelocytes andmetamyelocytes) > 1% indicates that a LEFT SHIFT is Present. Performed By: #### L 100.0100 ####[facility] [address] [place], [address] Lymphocytes/100 WBC (Bld) 19.1 % Normal 19-41 [facility] Comment on above: Performed By: #### L 100.0100 ####[facility] [address] [place], [address] MCH (RBC) [Entitic mass] 30.7 pg Normal 27.0-32.0 [facility] Comment on above: Performed By: #### L 100.0100 ####[facility] [address] [place], [address] MCHC (RBC) [Mass/Vol] 32.4 g/dL Normal 32-36 [facility] Comment on above: Performed By: #### L 100.0100 ####[facility] [address] [place], [address] MCV (RBC) [Entitic vol] 94.9 fL High 80-94 [facility] Comment on above: Performed By: #### L 100.0100 ####[facility] [address] [place], [address] Monocytes/100 WBC (Bld) 7.8 % Normal 0-10 [facility] Comment on above: Performed By: #### L 100.0100 ####[facility] [address] [place], [address] Neutrophils/100 WBC (Bld) 67.7 % Normal 47-70 [facility] Comment on above: Performed By: #### L 100.0100 ####[facility] [address] [place], [address] Nucleated RBC (Bld) [#/Vol] 0 10*3/uL Normal 0-5 [facility] Comment on above: Performed By: #### L 100.0100 ####[facility] [address] [place], [address] Platelet mean volume (Bld) [Entitic vol] 11.6 fL Normal 6.2-12.0 [facility] Comment on above: Performed By: #### L 100.0100 ####[facility] [address] [place], [address] Platelets (Bld) [#/Vol] 119 10*3/uL Low 150-450 [facility] Comment on above: Performed By: #### L 100.0100 ####[facility] [address] [place], [address] RBC (Bld) [#/Vol] 2.54 10*6/uL Low 4.6-6.2 [facility] Comment on above: Performed By: #### L 100.0100 ####[facility] [address] [place], [address] RDW SD 46.5 fl High 35.1-43.9 [facility] Comment on above: Performed By: #### L 100.0100 ####[facility] [address] [place], [address] WBC (Bld) [#/Vol] 5.9 10*3/uL Normal 4.4-11.0 [facility] Comment on above: Performed By: #### L 100.0100 ####[facility] [address] [place], [address] Comprehensive Metabolic Prof ilon 12-27-2023 Albumin [Mass/Vol] 3.0 g/dL Low 3.2-5.0 [facility] Comment on above: Performed By: #### L 500.4050 ####[facility] [address] [place], [address] Albumin/Globulin [Mass ratio] 0.9 {ratio} Normal 0.9-2.4 [facility] Comment on above: Performed By: #### L 500.4050 ####[facility] [address] [place], [address] ALK P 62 U/L Normal 45-117 [facility] Comment on above: Performed By: #### L 500.4050 ####[facility] [address] [place], [address] ALT [Catalytic activity/Vol] 19 U/L Normal 16-61 [facility] Comment on above: Performed By: #### L 500.4050 ####[facility] [address] [place], [address] AST [Catalytic activity/Vol] 15 U/L Normal 15-37 [facility] Comment on above: Performed By: #### L 500.4050 ####[facility] [address] [place], [address] Bilirubin [Mass/Vol] 0.60 mg/dL Normal 0.20-1.00 [facility] Comment on above: Result Comment: For patients on eltrombopag therapy, use of Dimension [place] TBIL is not recommended. Performed By: #### L 500.4050 ####[facility] [address] [place], [address] BUN/CRE 53.3 RATIO High 10-20 [facility] Comment on above: Performed By: #### L 500.4050 ####[facility] [address] [place], [address] CA,Total 9.0 mg/dL Normal 8.5-10.1 [facility] Comment on above: Performed By: #### L 500.4050 ####[facility] [address] [place], [address] Chloride [Moles/Vol] 107 mmol/L Normal 98-107 [facility] Comment on above: Performed By: #### L 500.4050 ####[facility] [address] [place], [address] CO2 [Moles/Vol] 30.0 mmol/L Normal 21.0-32.0 [facility] Comment on above: Performed By: #### L 500.4050 ####[facility] [address] [place], [address] Creatinine [Mass/Vol] 2.25 mg/dL High 0.70-1.30 [facility] Comment on above: Result Comment: The validity of the calculated GFR GFRAA in patients over70 years has not been determined. Clinical correlation isessential. Performed By: #### L 500.4050 ####[facility] [address] [place], [address] ECRCL 24.04 ml/min Normal [facility] Comment on above: Performed By: #### L 500.4050 ####[facility] [address] [place], [address] EST GFR - AA 36 mL/min Low >60 [facility] Comment on above: Result Comment: Afri can Guyanese GFR Calc Performed By: #### L 500.4050 ####[facility] [address] [place], [address] GAP 6 Normal 5-15 [facility] Comment on above: Performed By: #### L 500.4050 ####[facility] [address] [place], [address] GFR/1.73 sq M.predicted among non-blacks MDRD (S/P/Bld) [Vol rate/Area] 30 mL/min/{1.73_m2} Low >60 [facility] Comment on above: Result Comment: Non- GFR Calc Performed By: #### L 500.4050 ####[facility] [address] [place], [address] Globulin (S) [Mass/Vol] 3.4 g/dL Normal 2.2-4.2 [facility] Comment on above: Performed By: #### L 500.4050 ####[facility] [address] [place], [address] Glucose [Mass/Vol] 98 mg/dL Normal 74-106 [facility] Comment on above: Performed By: #### L 500.4050 ####[facility] [address] [place], [address] Potassium [Moles/Vol] 4.0 mmol/L Normal 3.5-5.1 [facility] Comment on above: Performed By: #### L 500.4050 ####[facility] [address] [place], [address] Sodium [Moles/Vol] 142 mmol/L Normal 136-145 [facility] Comment on above: Performed By: #### L 500.4050 ####[facility] [address] [place], [address] T PROT 6.4 g/dL Normal 6.4-8.2 [facility] Comment on above: Performed By: #### L 500.4050 ####[facility] [address] [place], [address] Urea nitrogen [Mass/Vol] 120 mg/dL Invalid Interpretation Code 7-18 [facility] Comment on above: Result Comment: Crit ical Result(s) Called at: 06:52:02 12/27/2023 by:Didier Donovan. Results read back by same. Performed By: #### L 500.4050 ####[facility] [address] [place], [address] Ferritinon 12-27-2023 Ferritin [Mass/Vol] 32 ng/mL Normal 26-388 [facility] Comment on above: Performed By: #### L 503.6550, L503.6030 ####[facility] [address] [place], [address] H Pylori (initial)on 024 H Pylori (initial) Normal [facility] Comment on above: Performed By: #### P H.PYLORI ####[facility] [address] [place], [address] HH, Hemoglobin AND Hematocri ton 12-27-2023 Hematocrit (Bld) [Volume fraction] 24.3 % Low 40-54 [facility] Comment on above: Performed By: #### L 100.0600 ####[facility] [address] [place], [address] Hemoglobin (Bld) [Mass/Vol] 7.9 g/dL Low 13.0-16.5 [facility] Comment on above: Performed By: #### L 100.0600 ####[facility] [address] [place], [address] Hematocrit (Bld) [Volume fraction] 24.1 % Low 40-54 [facility] Comment on above: Performed By: #### L 100.0600 ####[facility] [address] [place], [address] Hemoglobin (Bld) [Mass/Vol] 7.8 g/dL Low 13.0-16.5 [facility] Comment on above: Performed By: #### L 100.0600 ####[facility] [address] [place], [address] Hemoglobin A1con 12-27-2023 HbA1c (Bld) [Mass fraction] 5.7 % High 3.8-5.6 [facility] Comment on above: Result Comment: Norm al < 5.7 % Prediabetic 5.7 - 6.4 % Diabetic >or= 6.5 % Please note range changes. Performed By: #### L 5019905 ####[facility] [address] [place], [address] Iron+Iron Binding Capacityon 12-27-2023 Iron [Mass/Vol] 43 ug/dL Low 65-175 [facility] Comment on above: Performed By: #### L 503.6550, L503.6030 ####[facility] [address] [place], [address] IRON SATURATION 16.3 Normal 15.0-55.0 [facility] Comment on above: Performed By: #### L 503.6550, L503.6030 ####[facility] [address] [place], [address] TIBC 264 ug/dL Normal 250-450 [facility] Comment on above: Performed By: #### L 503.6550, L503.6030 ####[facility] [address] [place], [address] MR/POSTOP.ANEon 12-27-2023 MR/POSTOP.ANE Normal [facility] MR/[id number] 12-27-2023 MR/POSTOPAN2 Normal [facility] Surgery Specimen Level Riky 12-27-2023 Surgery Specimen Level IV Normal [facility] Comment on above: Performed By: #### P SUIV ####[facility] [address] [place], [address] 12 Lead EKGon 12-26-2023 12 Lead EKG Normal [facility] BRCon 12-26-2023 RC Normal [facility] Comment on above: Result Comment: [id number] AN RC TRANSFUSED 12/28/23 1134 Performed By: #### B RC ####[facility] [address] [place], [address] Basic Metabolic Profile (BMP )on 12-26-2023 BUN/CRE 45.8 RATIO High 10-20 [facility] Comment on above: Order Comment: 'TROP ' Serial specimen #1, #2 or #3: 1 Performed By: #### L 100.0100, L501.4020, L5000.0010, L500.2500 ####[facility] [address] [place], [address] CA,Total 9.1 mg/dL Normal 8.5-10.1 [facility] Comment on above: Order Comment: 'TROP ' Serial specimen #1, #2 or #3: 1 Performed By: #### L 100.0100, L501.4020, L5000.0010, L500.2500 ####[facility] [address] [place], [address] Chloride [Moles/Vol] 108 mmol/L High 98-107 [facility] Comment on above: Order Comment: 'TROP ' Serial specimen #1, #2 or #3: 1 Performed By: #### L 100.0100, L501.4020, L5000.0010, L500.2500 ####[facility] [address] [place], [address] CO2 [Moles/Vol] 30.0 mmol/L Normal 21.0-32.0 [facility] Comment on above: Order Comment: 'TROP ' Serial specimen #1, #2 or #3: 1 Performed By: #### L 100.0100, L501.4020, L5000.0010, L500.2500 ####[facility] [address] [place], [address] Creatinine [Mass/Vol] 2.75 mg/dL High 0.70-1.30 [facility] Comment on above: Order Comment: 'TROP ' Serial specimen #1, #2 or #3: 1 Result Comment: The validity of the calculated GFR GFRAA in patients over70 years has not been determined. Clinical correlation isessential. Performed By: #### L 100.0100, L501.4020, L5000.0010, L500.2500 ####[facility] [address] [place], [address] ECRCL 19.84 ml/min Normal [facility] Comment on above: Order Comment: 'TROP ' Serial specimen #1, #2 or #3: 1 Performed By: #### L 100.0100, L501.4020, L5000.0010, L500.2500 ####[facility] [address] [facility] [address] EST GFR - AA 28 mL/min Low >60 [facility] Comment on above: Order Comment: 'TROP ' Serial specimen #1, #2 or #3: 1 Result Comment: Afri can Guyanese GFR Calc Performed By: #### L 100.0100, L501.4020, L5000.0010, L500.2500 ####[facility] [address] [facility] [address] GAP 7 Normal 5-15 [facility] Comment on above: Order Comment: 'TROP ' Serial specimen #1, #2 or #3: 1 Performed By: #### L 100.0100, L501.4020, L5000.0010, L500.2500 ####[facility] [address] [place], [address] GFR/1.73 sq M.predicted among non-blacks MDRD (S/P/Bld) [Vol rate/Area] 24 mL/min/{1.73_m2} Low >60 [facility] Comment on above: Order Comment: 'TROP ' Serial specimen #1, #2 or #3: 1 Result Comment: Non- GFR Calc Performed By: #### L 100.0100, L501.4020, L5000.0010, L500.2500 ####[facility] [address] [facility] [address] Glucose [Mass/Vol] 169 mg/dL High 74-106 [facility] Comment on above: Order Comment: 'TROP ' Serial specimen #1, #2 or #3: 1 Result Comment: Fast ing Glucose result greater than or equal to 126 mg/dLsuggests DIABETES MELLITUS per A.D.A. criteria. Performed By: #### L 100.0100, L501.4020, L5000.0010, L500.2500 ####[facility] [address] [place], [address] Potassium [Moles/Vol] 4.6 mmol/L Normal 3.5-5.1 [facility] Comment on above: Order Comment: 'TROP ' Serial specimen #1, #2 or #3: 1 Result Comment: Slig ht Hemolysis, Result may be falsely increased. Performed By: #### L 100.0100, L501.4020, L5000.0010, L500.2500 ####[facility] [address] [place], [address] Sodium [Moles/Vol] 144 mmol/L Normal 136-145 [facility] Comment on above: Order Comment: 'TROP ' Serial specimen #1, #2 or #3: 1 Performed By: #### L 100.0100, L501.4020, L5000.0010, L500.2500 ####[facility] [address] [place], [address] Urea nitrogen [Mass/Vol] 126 mg/dL Invalid Interpretation Code 7-18 [facility] Comment on above: Order Comment: 'TROP ' Serial specimen #1, #2 or #3: 1 Result Comment: Crit ical Result(s) Called at: 14:49:19 12/26/2023 by: JEANETTE TO JENNIFER LOPEZ. Results read back by same. Performed By: #### L 100.0100, L501.4020, L5000.0010, L500.2500 ####[facility] [address] [place], [address] CBC W/Diff, Automatedon 10- Absolute Lymph 0.86 X10 3/uL Normal 0.83-4.51 [facility] Comment on above: Performed By: #### L 100.0100, L501.4020, L5000.0010, L500.2500 ####[facility] [address] [place], [address] Absolute Neut 4.0 X10 3/uL Normal 2.0-7.7 [facility] Comment on above: Performed By: #### L 100.0100, L501.4020, L5000.0010, L500.2500 ####[facility] [address] [place], [address] Basophils/100 WBC (Bld) 0.5 % Normal 0-1 [facility] Comment on above: Performed By: #### L 100.0100, L501.4020, L5000.0010, L500.2500 ####[facility] [address] [place], [address] Eosinophils/100 WBC (Bld) 4.1 % Normal 0-5 [facility] Comment on above: Performed By: #### L 100.0100, L501.4020, L5000.0010, L500.2500 ####[facility] [address] [place], [address] Erythrocyte distribution width (RBC) [Ratio] 13.8 % Normal 11.6-14.6 [facility] Comment on above: Performed By: #### L 100.0100, L501.4020, L5000.0010, L500.2500 ####[facility] [address] [place], [address] Hematocrit (Bld) [Volume fraction] 25.9 % Low 40-54 [facility] Comment on above: Performed By: #### L 100.0100, L501.4020, L5000.0010, L500.2500 ####[facility] [address] [place], [address] Hemoglobin (Bld) [Mass/Vol] 8.3 g/dL Low 13.0-16.5 [facility] Comment on above: Performed By: #### L 100.0100, L501.4020, L5000.0010, L500.2500 ####[facility] [address] [place], [address] IG% 0.500 Normal 0.0-0.9 [facility] Comment on above: Result Comment: IG% - Immature Granulocytes (promyelocytes, myelocytes andmetamyelocytes) > 1% indicates that a LEFT SHIFT is Present. Performed By: #### L 100.0100, L501.4020, L5000.0010, L500.2500 ####[facility] [address] [place], [address] Lymphocytes/100 WBC (Bld) 15.4 % Low 19-41 [facility] Comment on above: Performed By: #### L 100.0100, L501.4020, L5000.0010, L500.2500 ####[facility] [address] [place], [address] MCH (RBC) [Entitic mass] 30.6 pg Normal 27.0-32.0 [facility] Comment on above: Performed By: #### L 100.0100, L501.4020, L5000.0010, L500.2500 ####[facility] [address] [place], [address] MCHC (RBC) [Mass/Vol] 32.0 g/dL Normal 32-36 [facility] Comment on above: Performed By: #### L 100.0100, L501.4020, L5000.0010, L500.2500 ####[facility] [address] [place], [address] MCV (RBC) [Entitic vol] 95.6 fL High 80-94 [facility] Comment on above: Performed By: #### L 100.0100, L501.4020, L5000.0010, L500.2500 ####[facility] [address] [place], [address] Monocytes/100 WBC (Bld) 7.5 % Normal 0-10 [facility] Comment on above: Performed By: #### L 100.0100, L501.4020, L5000.0010, L500.2500 ####[facility] [address] [place], [address] Neutrophils/100 WBC (Bld) 72.0 % High 47-70 [facility] Comment on above: Performed By: #### L 100.0100, L501.4020, L5000.0010, L500.2500 ####[facility] [address] [place], [address] Nucleated RBC (Bld) [#/Vol] 0 10*3/uL Normal 0-5 [facility] Comment on above: Performed By: #### L 100.0100, L501.4020, L5000.0010, L500.2500 ####[facility] [address] [place], [address] Platelet mean volume (Bld) [Entitic vol] 11.8 fL Normal 6.2-12.0 [facility] Comment on above: Performed By: #### L 100.0100, L501.4020, L5000.0010, L500.2500 ####[facility] [address] [place], [address] Platelets (Bld) [#/Vol] 124 10*3/uL Low 150-450 [facility] Comment on above: Performed By: #### L 100.0100, L501.4020, L5000.0010, L500.2500 ####[facility] [address] [place], [address] RBC (Bld) [#/Vol] 2.71 10*6/uL Low 4.6-6.2 [facility] Comment on above: Performed By: #### L 100.0100, L501.4020, L5000.0010, L500.2500 ####[facility] [address] [place], [address] RDW SD 47.5 fl High 35.1-43.9 [facility] Comment on above: Performed By: #### L 100.0100, L501.4020, L5000.0010, L500.2500 ####[facility] [address] [place], [address] WBC (Bld) [#/Vol] 5.6 10*3/uL Normal 4.4-11.0 [facility] Comment on above: Performed By: #### L 100.0100, L501.4020, L5000.0010, L500.2500 ####[facility] [address] [place], [address] Chest 1 View (Portable)on Chest 1 View (Portable) Normal [facility] Emergency Department Summary on 12-26-2023 Emergency Department Summary Normal [facility] H AND P Exam - Hospitaliston 12-26-2023 H&P Exam - Hospitalist Normal [facility] HH, Hemoglobin AND Hematocri ton 12-26-2023 Hematocrit (Bld) [Volume fraction] 23.5 % Low 40-54 [facility] Comment on above: Performed By: #### L 100.0600 ####[facility] [address] [place], [address] Hemoglobin (Bld) [Mass/Vol] 7.6 g/dL Low 13.0-16.5 [facility] Comment on above: Performed By: #### L 100.0600 ####[facility] [address] [place], [address] Hematocrit (Bld) [Volume fraction] 26.4 % Low 40-54 [facility] Comment on above: Performed By: #### L 100.0600 ####[facility] [address] [place], [address] Hemoglobin (Bld) [Mass/Vol] 8.3 g/dL Low 13.0-16.5 [facility] Comment on above: Performed By: #### L 100.0600 ####[facility] [address] [place], [address] L501.4020on 12-26-2023 TROPONIN-I HS 30 pg/mL Normal 3.0-78.0 [facility] Comment on above: Order Comment: 'TROP ' Serial specimen #1, #2 or #3: 1 Result Comment: Plea se Note: New Test Units and Gender Specific Reference Ranges. For more information see Policy Stat Procedure [place] High Sensitivity Troponin (TNIH) and attachments. Performed By: #### L 100.0100, L501.4020, L5000.0010, L500.2500 ####[facility] [address] [place], [address] Liver Profileon 12-26-2023 Albumin [Mass/Vol] 3.1 g/dL Low 3.2-5.0 [facility] Comment on above: Performed By: #### L 500.3400, L501.5200, L501.2300, L300.3900 ####[facility] [address] [place], [address] ALK P 61 U/L Normal 45-117 [facility] Comment on above: Performed By: #### L 500.3400, L501.5200, L501.2300, L300.3900 ####[facility] [address] [place], [address] ALT [Catalytic activity/Vol] 18 U/L Normal 16-61 [facility] Comment on above: Performed By: #### L 500.3400, L501.5200, L501.2300, L300.3900 ####[facility] [address] [place], [address] AST [Catalytic activity/Vol] 20 U/L Normal 15-37 [facility] Comment on above: Result Comment: Slig ht Hemolysis, Result may be falsely increased. Performed By: #### L 500.3400, L501.5200, L501.2300, L300.3900 ####[facility] [address] [place], [address] Bilirubin [Mass/Vol] 0.30 mg/dL Normal 0.20-1.00 [facility] Comment on above: Result Comment: For patients on eltrombopag therapy, use of Dimension [place] TBIL is not recommended. Performed By: #### L 500.3400, L501.5200, L501.2300, L300.3900 ####[facility] [address] [place], [address] Bilirubin.direct [Mass/Vol] 0.10 mg/dL Normal 0.00-0.30 [facility] Comment on above: Performed By: #### L 500.3400, L501.5200, L501.2300, L300.3900 ####[facility] [address] [place], [address] Globulin (S) [Mass/Vol] 3.6 g/dL Normal 2.2-4.2 [facility] Comment on above: Performed By: #### L 500.3400, L501.5200, L501.2300, L300.3900 ####[facility] [address] [place], [address] T PROT 6.7 g/dL Normal 6.4-8.2 [facility] Comment on above: Performed By: #### L 500.3400, L501.5200, L501.2300, L300.3900 ####[facility] [address] [place], [address] MR/CON.PCM.GIon 12-26-2023 MR/CON.PCM.GI Normal [facility] Magnesiumon 12-26-2023 Magnesium [Mass/Vol] 1.5 mg/dL Low 1.6-2.6 [facility] Comment on above: Result Comment: Slig ht Hemolysis, Result may be falsely increased. Performed By: #### L 500.3400, L501.5200, L501.2300, L300.3900 ####[facility] [address] [place], [address] Phosphoruson 12-26-2023 Phosphate [Mass/Vol] 3.8 mg/dL Normal 2.5-4.9 [facility] Comment on above: Performed By: #### L 500.3400, L501.5200, L501.2300, L300.3900 ####[facility] [address] [place], [address] Prothrombin Time w/INRon INR Coag (PPP) [Relative time] 1.1 {INR} Normal [facility] Comment on above: Performed By: #### L 500.3400, L501.5200, L501.2300, L300.3900 ####[facility] [address] [place], [address] PT Coag (PPP) [Time] 14.3 s Normal 11.7-14.9 [facility] Comment on above: Performed By: #### L 500.3400, L501.5200, L501.2300, L300.3900 ####[facility] [address] [place], [address] Type AND Screenon 12-26-2023 Ab SCREEN GEL Negative Normal [facility] Comment on above: Order Comment: HGI Performed By: #### B TS ####[facility] [address] [place], [address] Basic Metabolic Profile (BMP )on 12-13-2023 BUN/CRE 30.0 RATIO High 10-20 [facility] Comment on above: Order Comment: CC: Cole HERNANDEZ Performed By: #### L 503.6030, L500.2500 ####[facility] [address] [place], [address] CA,Total 9.0 mg/dL Normal 8.5-10.1 [facility] Comment on above: Order Comment: CC: Cole HERNANDEZ Performed By: #### L 503.6030, L500.2500 ####[facility] [address] [place], [address] Chloride [Moles/Vol] 110 mmol/L High 98-107 [facility] Comment on above: Order Comment: CC: Cole HERNANDEZ Performed By: #### L 503.6030, L500.2500 ####[facility] [address] [place], [address] CO2 [Moles/Vol] 28.0 mmol/L Normal 21.0-32.0 [facility] Comment on above: Order Comment: CC: Cole HERNANDEZ Performed By: #### L 503.6030, L500.2500 ####[facility] [address] [place], [address] Creatinine [Mass/Vol] 2.37 mg/dL High 0.70-1.30 [facility] Comment on above: Order Comment: CC: Cole HERNANDEZ Result Comment: The validity of the calculated GFR GFRAA in patients over70 years has not been determined. Clinical correlation isessential. Performed By: #### L 503.6030, L500.2500 ####[facility] [address] [place], [address] EST GFR - AA 34 mL/min Low >60 [facility] Comment on above: Order Comment: CC: Cole HERNANDEZ Result Comment: Afri can Guyanese GFR Calc Performed By: #### L 503.6030, L500.2500 ####[facility] [address] [place], [address] GAP 6 Normal 5-15 [facility] Comment on above: Order Comment: CC: Cole HERNANDEZ Performed By: #### L 503.6030, L500.2500 ####[facility] [address] [place], [address] GFR/1.73 sq M.predicted among non-blacks MDRD (S/P/Bld) [Vol rate/Area] 28 mL/min/{1.73_m2} Low >60 [facility] Comment on above: Order Comment: CC: Cole HERNANDEZ Result Comment: Non- GFR Calc Performed By: #### L 503.6030, L500.2500 ####[facility] [address] [place], [address] Glucose [Mass/Vol] 88 mg/dL Normal 74-106 [facility] Comment on above: Order Comment: CC: Cole HERNANDEZ Performed By: #### L 503.6030, L500.2500 ####[facility] [address] [place], [address] Potassium [Moles/Vol] 4.8 mmol/L Normal 3.5-5.1 [facility] Comment on above: Order Comment: CC: Cole HERNANDEZ Performed By: #### L 503.6030, L500.2500 ####[facility] [address] [place], [address] Sodium [Moles/Vol] 144 mmol/L Normal 136-145 [facility] Comment on above: Order Comment: CC: Cole HERNANDEZ Performed By: #### L 503.6030, L500.2500 ####[facility] [address] [place], [address] Urea nitrogen [Mass/Vol] 71 mg/dL High 7-18 [facility] Comment on above: Order Comment: CC: Cole HERNANDEZ Performed By: #### L 503.6030, L500.2500 ####[facility] [address] [place], [address] BUN Normal 7-18 [facility] Comment on above: Order Comment: Order Date: 11/23/23Order Info: 666- - BMP Result Comment: DR. WASHBURN ORDERED BMP TOO Performed By: #### L 500.2500, L100.0100 ####[facility] [address] [place], [address] BUN/CRE Normal 10-20 [facility] Comment on above: Order Comment: Order Date: 11/23/23Order Info: 06- - BMP Result Comment: DR. WASHBURN ORDERED BMP TOO Performed By: #### L 500.2500, L100.0100 ####[facility] [address] [place], [address] CA,Total Normal 8.5-10.1 [facility] Comment on above: Order Comment: Order Date: 11/23/23Order Info: 06- - BMP Result Comment: DR. WASHBURN ORDERED BMP TOO Performed By: #### L 500.2500, L100.0100 ####[facility] [address] [place], [address] CL Normal 98-107 [facility] Comment on above: Order Comment: Order Date: 11/23/23Order Info: 06- - BMP Result Comment: DR. WASHBURN ORDERED BMP TOO Performed By: #### L 500.2500, L100.0100 ####[facility] [address] [place], [address] CO2 Normal 21.0-32.0 [facility] Comment on above: Order Comment: Order Date: 11/23/23Order Info: 666- - BMP Result Comment: DR. WASHBURN ORDERED BMP TOO Performed By: #### L 500.2500, L100.0100 ####[facility] [address] [place], [address] CREAT,SERUM Normal 0.70-1.30 [facility] Comment on above: Order Comment: Order Date: 11/23/23Order Info: 666- - BMP Result Comment: DR. WASHBURN ORDERED BMP TOO Performed By: #### L 500.2500, L100.0100 ####[facility] [address] [place], [address] EST GFR Normal >60 [facility] Comment on above: Order Comment: Order Date: 11/23/23Order Info: 666- - BMP Result Comment: DR. WASHBURN ORDERED BMP TOO Performed By: #### L 500.2500, L100.0100 ####[facility] [address] [place], [address] EST GFR - AA Normal >60 [facility] Comment on above: Order Comment: Order Date: 11/23/23Order Info: 666- - BMP Result Comment: DR. WASHBURN ORDERED BMP TOO Performed By: #### L 500.2500, L100.0100 ####[facility] [address] [place], [address] GAP Normal 5-15 [facility] Comment on above: Order Comment: Order Date: 11/23/23Order Info: 666- - BMP Result Comment: DR. WASHBURN ORDERED BMP TOO Performed By: #### L 500.2500, L100.0100 ####[facility] [address] [place], [address] GLU Normal 74-106 [facility] Comment on above: Order Comment: Order Date: 11/23/23Order Info: 666- - BMP Result Comment: DR. WASHBURN ORDERED BMP TOO Performed By: #### L 500.2500, L100.0100 ####[facility] [address] [place], [address] Potassium Normal 3.5-5.1 [facility] Comment on above: Order Comment: Order Date: 11/23/23Order Info: 0667- - BMP Result Comment: DR. WASHBURN ORDERED BMP TOO Performed By: #### L 500.2500, L100.0100 ####[facility] [address] [place], [address] Basic Metabolic Profile (BMP) Normal 136-145 [facility] Comment on above: Order Comment: Order Date: 11/23/23Order Info: 0667- - BMP Result Comment: DR. WASHBURN ORDERED BMP TOO Performed By: #### L 500.2500, L100.0100 ####[facility] [address] [place], [address] CBC W/Diff, Automatedon 10-0 3-2024 Absolute Lymph 1.19 X10 3/uL Normal 0.83-4.51 [facility] Comment on above: Order Comment: CC.CM P TO DR. Fidencio WASHBURN Performed By: #### L 500.2500, L100.0100 ####[facility] [address] [place], [address] Absolute Neut 3.2 X10 3/uL Normal 2.0-7.7 [facility] Comment on above: Order Comment: CC.CM P TO DR. Fidencio WASHBURN Performed By: #### L 500.2500, L100.0100 ####[facility] [address] [place], [address] Basophils/100 WBC (Bld) 0.4 % Normal 0-1 [facility] Comment on above: Order Comment: CC.CM P TO DR. Fidencio WASHBURN Performed By: #### L 500.2500, L100.0100 ####[facility] [address] [place], [address] Eosinophils/100 WBC (Bld) 8.2 % High 0-5 [facility] Comment on above: Order Comment: CC.CM P TO DR. Fidencio WASHBURN Performed By: #### L 500.2500, L100.0100 ####[facility] [address] [place], [address] Erythrocyte distribution width (RBC) [Ratio] 13.2 % Normal 11.6-14.6 [facility] Comment on above: Order Comment: CC.CM P TO DR. Fidencio WASHBURN Performed By: #### L 500.2500, L100.0100 ####[facility] [address] [place], [address] Hematocrit (Bld) [Volume fraction] 30.3 % Low 40-54 [facility] Comment on above: Order Comment: CC.CM P TO DR. Fidencio WASHBURN Performed By: #### L 500.2500, L100.0100 ####[facility] [address] [place], [address] Hemoglobin (Bld) [Mass/Vol] 9.7 g/dL Low 13.0-16.5 [facility] Comment on above: Order Comment: CC.CM P TO DR. Fidencio WASHBURN Performed By: #### L 500.2500, L100.0100 ####[facility] [address] [place], [address] IG% 0.400 Normal 0.0-0.9 [facility] Comment on above: Order Comment: CC.CM P TO DR. Fidencio WASHBURN Result Comment: IG% - Immature Granulocytes (promyelocytes, myelocytes andmetamyelocytes) > 1% indicates that a LEFT SHIFT is Present. Performed By: #### L 500.2500, L100.0100 ####[facility] [address] [place], [address] Lymphocytes/100 WBC (Bld) 22.2 % Normal 19-41 [facility] Comment on above: Order Comment: CC.CM P TO DR. Fidencio WASHBURN Performed By: #### L 500.2500, L100.0100 ####[facility] [address] [place], [address] MCH (RBC) [Entitic mass] 30.4 pg Normal 27.0-32.0 [facility] Comment on above: Order Comment: CC.CM P TO DR. Fidencio WASHBURN Performed By: #### L 500.2500, L100.0100 ####[facility] [address] [place], [address] MCHC (RBC) [Mass/Vol] 32.0 g/dL Normal 32-36 [facility] Comment on above: Order Comment: CC.CM P TO DR. Fidencio WASHBURN Performed By: #### L 500.2500, L100.0100 ####[facility] [address] [place], [address] MCV (RBC) [Entitic vol] 95.0 fL High 80-94 [facility] Comment on above: Order Comment: CC.CM P TO DR. Fidencio WASHBURN Performed By: #### L 500.2500, L100.0100 ####[facility] [address] [place], [address] Monocytes/100 WBC (Bld) 9.0 % Normal 0-10 [facility] Comment on above: Order Comment: CC.CM P TO DR. Fidencio WASHBURN Performed By: #### L 500.2500, L100.0100 ####[facility] [address] [place], [address] Neutrophils/100 WBC (Bld) 59.8 % Normal 47-70 [facility] Comment on above: Order Comment: CC.CM P TO DR. Fidencio WASHBURN Performed By: #### L 500.2500, L100.0100 ####[facility] [address] [place], [address] Nucleated RBC (Bld) [#/Vol] 0 10*3/uL Normal 0-5 [facility] Comment on above: Order Comment: CC.CM P TO DR. Fidencio WASHBURN Performed By: #### L 500.2500, L100.0100 ####[facility] [address] [place], [address] Platelet mean volume (Bld) [Entitic vol] 10.3 fL Normal 6.2-12.0 [facility] Comment on above: Order Comment: CC.CM P TO DR. Fidencio WASHBURN Performed By: #### L 500.2500, L100.0100 ####[facility] [address] [place], [address] Platelets (Bld) [#/Vol] 152 10*3/uL Normal 150-450 [facility] Comment on above: Order Comment: CC.CM P TO DR. Fidencio WASHBURN Performed By: #### L 500.2500, L100.0100 ####[facility] [address] [place], [address] RBC (Bld) [#/Vol] 3.19 10*6/uL Low 4.6-6.2 [facility] Comment on above: Order Comment: CC.CM P TO DR. Fidencio WASHBURN Performed By: #### L 500.2500, L100.0100 ####[facility] [address] [place], [address] RDW SD 45.6 fl High 35.1-43.9 [facility] Comment on above: Order Comment: CC.CM P TO DR. Fidencio WASHBURN Performed By: #### L 500.2500, L100.0100 ####[facility] [address] [place], [address] WBC (Bld) [#/Vol] 5.4 10*3/uL Normal 4.4-11.0 [facility] Comment on above: Order Comment: CC.CM P TO DR. Fidencio WASHBURN Performed By: #### L 500.2500, L100.0100 ####[facility] [address] [place], [address] Iron+Iron Binding Capacityon 12-13-2023 Iron [Mass/Vol] 39 ug/dL Low 65-175 [facility] Comment on above: Order Comment: CC: Cole HERNANDEZ Performed By: #### L 503.6030, L500.2500 ####[facility] [id number] [place], [address] IRON SATURATION 14.6 Low 15.0-55.0 [facility] Comment on above: Order Comment: CC: Cole HERNANDEZ Performed By: #### L 503.6030, L500.2500 ####[facility] [id number] [place], [address] TIBC 268 ug/dL Normal 250-450 [facility] Comment on above: Order Comment: CC: Cole HERNANDEZ Performed By: #### L 503.6030, L500.2500 ####[facility] [facility] [address] [place], [address] 12 Lead EKGon 12-10-2023 12 Lead EKG Normal [facility] Basic Metabolic Profile (BMP )on 12-10-2023 BUN/CRE 42.8 RATIO High 10-20 [facility] Comment on above: Performed By: #### L 300.3900, L100.0100, L501.9985, L500.2500, L300.4310 ####[facility] [address] [place], [address] CA,Total 9.1 mg/dL Normal 8.5-10.1 [facility] Comment on above: Performed By: #### L 300.3900, L100.0100, L501.9985, L500.2500, L300.4310 ####[facility] [address] [place], [address] Chloride [Moles/Vol] 108 mmol/L High 98-107 [facility] Comment on above: Performed By: #### L 300.3900, L100.0100, L501.9985, L500.2500, L300.4310 ####[facility] [address] [place], [address] CO2 [Moles/Vol] 26.0 mmol/L Normal 21.0-32.0 [facility] Comment on above: Performed By: #### L 300.3900, L100.0100, L501.9985, L500.2500, L300.4310 ####[facility] [address] [place], [address] Creatinine [Mass/Vol] 1.87 mg/dL High 0.70-1.30 [facility] Comment on above: Result Comment: The validity of the calculated GFR GFRAA in patients over70 years has not been determined. Clinical correlation isessential. Performed By: #### L 300.3900, L100.0100, L501.9985, L500.2500, L300.4310 ####[facility] [address] [place], [address] ECRCL 29.90 ml/min Normal [facility] Comment on above: Performed By: #### L 300.3900, L100.0100, L501.9985, L500.2500, L300.4310 ####[facility] [address] [place], [address] EST GFR - AA 44 mL/min Low >60 [facility] Comment on above: Result Comment: Afri can Guyanese GFR Calc Performed By: #### L 300.3900, L100.0100, L501.9985, L500.2500, L300.4310 ####[facility] [address] [place], [address] GAP 11 Normal 5-15 [facility] Comment on above: Performed By: #### L 300.3900, L100.0100, L501.9985, L500.2500, L300.4310 ####[facility] [address] [place], [address] GFR/1.73 sq M.predicted among non-blacks MDRD (S/P/Bld) [Vol rate/Area] 37 mL/min/{1.73_m2} Low >60 [facility] Comment on above: Result Comment: Non- GFR Calc Performed By: #### L 300.3900, L100.0100, L501.9985, L500.2500, L300.4310 ####[facility] [address] [place], [address] Glucose [Mass/Vol] 147 mg/dL High 74-106 [facility] Comment on above: Result Comment: Fast ing Glucose result greater than or equal to 126 mg/dLsuggests DIABETES MELLITUS per A.D.A. criteria. Performed By: #### L 300.3900, L100.0100, L501.9985, L500.2500, L300.4310 ####[facility] [address] [place], [address] Potassium [Moles/Vol] 4.8 mmol/L Normal 3.5-5.1 [facility] Comment on above: Performed By: #### L 300.3900, L100.0100, L501.9985, L500.2500, L300.4310 ####[facility] [address], [address] Sodium [Moles/Vol] 145 mmol/L Normal 136-145 [facility] Comment on above: Performed By: #### L 300.3900, L100.0100, L501.9985, L500.2500, L300.4310 ####[facility] [address] [place], [address] Urea nitrogen [Mass/Vol] 80 mg/dL High 7-18 [facility] Comment on above: Performed By: #### L 300.3900, L100.0100, L501.9985, L500.2500, L300.4310 ####[facility] [address] [place], [address] Bedside Glucoseon 12-09-2023 FINGERSTICK GLU 113 mg/dL High 74-106 [facility] Comment on above: Result Comment: MYKE GEMENT OF PATIENT CARE PER NURSING PROTOCOL Performed By: #### L 501.080 ####[facility] [address] [place], [address] FINGERSTICK GLU 142 mg/dL High 74-106 [facility] Comment on above: Result Comment: MYKE GEMENT OF PATIENT CARE PER NURSING PROTOCOL Performed By: #### L 501.080 ####[facility] [address] [place], [address] FINGERSTICK GLU 136 mg/dL High 74-106 [facility] Comment on above: Result Comment: MYKE GEMENT OF PATIENT CARE PER NURSING PROTOCOL Performed By: #### L 501.080 ####[facility] [address] [place], [address] CBC W/Diff, Automatedon 11-12 0 Absolute Lymph 0.72 X10 3/uL Low 0.83-4.51 [facility] Comment on above: Performed By: #### L 300.3900, L100.0100, L501.9985, L500.2500, L300.4310 ####[facility] [address] [place], [address] Absolute Neut 2.9 X10 3/uL Normal 2.0-7.7 [facility] Comment on above: Performed By: #### L 300.3900, L100.0100, L501.9985, L500.2500, L300.4310 ####[facility] [address] [place], [address] Basophils/100 WBC (Bld) 0.7 % Normal 0-1 [facility] Comment on above: Performed By: #### L 300.3900, L100.0100, L501.9985, L500.2500, L300.4310 ####[facility] [address] [place], [address] Eosinophils/100 WBC (Bld) 6.5 % High 0-5 [facility] Comment on above: Performed By: #### L 300.3900, L100.0100, L501.9985, L500.2500, L300.4310 ####[facility] [address] [place], [address] Erythrocyte distribution width (RBC) [Ratio] 14.4 % Normal 11.6-14.6 [facility] Comment on above: Performed By: #### L 300.3900, L100.0100, L501.9985, L500.2500, L300.4310 ####[facility] [address] [place], [address] Hematocrit (Bld) [Volume fraction] 28.8 % Low 40-54 [facility] Comment on above: Performed By: #### L 300.3900, L100.0100, L501.9985, L500.2500, L300.4310 ####[facility] [address] [place], [address] Hemoglobin (Bld) [Mass/Vol] 9.4 g/dL Low 13.0-16.5 [facility] Comment on above: Performed By: #### L 300.3900, L100.0100, L501.9985, L500.2500, L300.4310 ####[facility] [address] [place], [address] IG% 0.500 Normal 0.0-0.9 [facility] Comment on above: Result Comment: IG% - Immature Granulocytes (promyelocytes, myelocytes andmetamyelocytes) > 1% indicates that a LEFT SHIFT is Present. Performed By: #### L 300.3900, L100.0100, L501.9985, L500.2500, L300.4310 ####[facility] [address] [place], [address] Lymphocytes/100 WBC (Bld) 16.7 % Low 19-41 [facility] Comment on above: Performed By: #### L 300.3900, L100.0100, L501.9985, L500.2500, L300.4310 ####[facility] [address] [place], [address] MCH (RBC) [Entitic mass] 30.7 pg Normal 27.0-32.0 [facility] Comment on above: Performed By: #### L 300.3900, L100.0100, L501.9985, L500.2500, L300.4310 ####[facility] [address] [place], [address] MCHC (RBC) [Mass/Vol] 32.6 g/dL Normal 32-36 [facility] Comment on above: Performed By: #### L 300.3900, L100.0100, L501.9985, L500.2500, L300.4310 ####[facility] [address] [place], [address] MCV (RBC) [Entitic vol] 94.1 fL High 80-94 [facility] Comment on above: Performed By: #### L 300.3900, L100.0100, L501.9985, L500.2500, L300.4310 ####[facility] [address] [place], [address] Monocytes/100 WBC (Bld) 7.2 % Normal 0-10 [facility] Comment on above: Performed By: #### L 300.3900, L100.0100, L501.9985, L500.2500, L300.4310 ####[facility] [address] [place], [address] Neutrophils/100 WBC (Bld) 68.4 % Normal 47-70 [facility] Comment on above: Performed By: #### L 300.3900, L100.0100, L501.9985, L500.2500, L300.4310 ####[facility] [address] [place], [address] Nucleated RBC (Bld) [#/Vol] 0 10*3/uL Normal 0-5 [facility] Comment on above: Performed By: #### L 300.3900, L100.0100, L501.9985, L500.2500, L300.4310 ####[facility] [address] [place], [address] Platelet mean volume (Bld) [Entitic vol] 11.3 fL Normal 6.2-12.0 [facility] Comment on above: Performed By: #### L 300.3900, L100.0100, L501.9985, L500.2500, L300.4310 ####[facility] [address] [place], [address] Platelets (Bld) [#/Vol] 89 10*3/uL Low 150-450 [facility] Comment on above: Performed By: #### L 300.3900, L100.0100, L501.9985, L500.2500, L300.4310 ####[facility] [address] [place], [address] RBC (Bld) [#/Vol] 3.06 10*6/uL Low 4.6-6.2 [facility] Comment on above: Performed By: #### L 300.3900, L100.0100, L501.9985, L500.2500, L300.4310 ####[facility] [address] [place], [address] RDW SD 48.5 fl High 35.1-43.9 [facility] Comment on above: Performed By: #### L 300.3900, L100.0100, L501.9985, L500.2500, L300.4310 ####[facility] [address] [place], [address] WBC (Bld) [#/Vol] 4.3 10*3/uL Low 4.4-11.0 [facility] Comment on above: Performed By: #### L 300.3900, L100.0100, L501.9985, L500.2500, L300.4310 ####[facility] [address] [place], [address] Colonoscopy Reporton 024 Colonoscopy Report Normal [facility] Discharge Instructionon 11-12 Discharge Instruction Normal [facility] Hemoglobin A1con 12-10-2023 HbA1c (Bld) [Mass fraction] 5.9 % High 3.8-5.6 [facility] Comment on above: Result Comment: Norm al < 5.7 % Prediabetic 5.7 - 6.4 % Diabetic >or= 6.5 % Please note range changes. Performed By: #### L 300.3900, L100.0100, L501.9985, L500.2500, L300.4310 ####[facility] [address] [place], [address] MR/POSTOP.ANEon 12-10-2023 MR/POSTOP.ANE Normal [facility] MR/ZONCNESB1qr 12-10-2023 MR/POSTOPAN2 Normal [facility] MR/POSTOPAN2 Normal [facility] Partial Thromboplast Timeon 12-10-2023 aPTT Coag (Bld) [Time] 32.0 s Normal 24.1-36.2 [facility] Comment on above: Performed By: #### L 300.3900, L100.0100, L501.9985, L500.2500, L300.4310 ####[facility] [address] [place], [address] Prothrombin Time w/INRon INR Coag (PPP) [Relative time] 1.2 {INR} Normal [facility] Comment on above: Performed By: #### L 300.3900, L100.0100, L501.9985, L500.2500, L300.4310 ####[facility] [address] [place], [address] PT Coag (PPP) [Time] 15.5 s High 11.7-14.9 [facility] Comment on above: Performed By: #### L 300.3900, L100.0100, L501.9985, L500.2500, L300.4310 ####[facility] [address] [place], [address] Surgery Specimen Level Riky 12-10-2023 Surgery Specimen Level IV Normal [facility] Comment on above: Performed By: #### P SUIV ####[facility] [address] [place], [address] Basic Metabolic Profile (BMP )on 12-09-2023 BUN/CRE 48.6 RATIO High 10-20 [facility] Comment on above: Performed By: #### L 500.2500, L100.0100 ####[facility] [address] [place], [address] CA,Total 9.3 mg/dL Normal 8.5-10.1 [facility] Comment on above: Performed By: #### L 500.2500, L100.0100 ####[facility] [address] [place], [address] Chloride [Moles/Vol] 107 mmol/L Normal 98-107 [facility] Comment on above: Performed By: #### L 500.2500, L100.0100 ####[facility] [address] [place], [address] CO2 [Moles/Vol] 26.0 mmol/L Normal 21.0-32.0 [facility] Comment on above: Performed By: #### L 500.2500, L100.0100 ####[facility] [address] [place], [address] Creatinine [Mass/Vol] 2.20 mg/dL High 0.70-1.30 [facility] Comment on above: Result Comment: The validity of the calculated GFR GFRAA in patients over70 years has not been determined. Clinical correlation isessential. Performed By: #### L 500.2500, L100.0100 ####[facility] [address] [place], [address] ECRCL 25.45 ml/min Normal [facility] Comment on above: Performed By: #### L 500.2500, L100.0100 ####[facility] [address] [place], [address] EST GFR - AA 37 mL/min Low >60 [facility] Comment on above: Result Comment: Afri can Guyanese GFR Calc Performed By: #### L 500.2500, L100.0100 ####[facility] [address] [place], [address] GAP 7 Normal 5-15 [facility] Comment on above: Performed By: #### L 500.2500, L100.0100 ####[facility] [address] [place], [address] GFR/1.73 sq M.predicted among non-blacks MDRD (S/P/Bld) [Vol rate/Area] 30 mL/min/{1.73_m2} Low >60 [facility] Comment on above: Result Comment: Non- GFR Calc Performed By: #### L 500.2500, L100.0100 ####[facility] [address] [place], [address] Glucose [Mass/Vol] 191 mg/dL High 74-106 [facility] Comment on above: Result Comment: Fast ing Glucose result greater than or equal to 126 mg/dLsuggests DIABETES MELLITUS per A.D.A. criteria. Performed By: #### L 500.2500, L100.0100 ####[facility] [address] [place], [address] Potassium [Moles/Vol] 4.9 mmol/L Normal 3.5-5.1 [facility] Comment on above: Performed By: #### L 500.2500, L100.0100 ####[facility] [address] [place], [address] Sodium [Moles/Vol] 140 mmol/L Normal 136-145 [facility] Comment on above: Performed By: #### L 500.2500, L100.0100 ####[facility] [address] [place], [address] Urea nitrogen [Mass/Vol] 107 mg/dL Invalid Interpretation Code 7-18 [facility] Comment on above: Result Comment: Crit ical Result(s) Called at: 06:23:13 12/09/2023 by:Didier Kitchen. Results read back by same. Performed By: #### L 500.2500, L100.0100 ####[facility] [address] [place], [address] Bedside Glucoseon 12-09-2023 FINGERSTICK GLU 138 mg/dL High 74-106 [facility] Comment on above: Result Comment: MYKE SAGE OF PATIENT CARE PER NURSING PROTOCOL Performed By: #### L 501.080 ####[facility] [address] [place], [address] FINGERSTICK GLU 164 mg/dL High 74-106 [facility] Comment on above: Result Comment: MYKE GEMENT OF PATIENT CARE PER NURSING PROTOCOL Performed By: #### L 501.080 ####[facility] [address] [place], [address] FINGERSTICK GLU 140 mg/dL High 74-106 [facility] Comment on above: Result Comment: MYKE GEMENT OF PATIENT CARE PER NURSING PROTOCOL Performed By: #### L 501.080 ####[facility] [address] [place], [address] FINGERSTICK GLU 161 mg/dL High 74-106 [facility] Comment on above: Result Comment: MYKE GEMENT OF PATIENT CARE PER NURSING PROTOCOL Performed By: #### L 501.080 ####[facility] [address] [place], [address] CBC W/Diff, Automatedon - Absolute Lymph 1.00 X10 3/uL Normal 0.83-4.51 [facility] Comment on above: Performed By: #### L 500.2500, L100.0100 ####[facility] [address] [place], [address] Absolute Neut 4.5 X10 3/uL Normal 2.0-7.7 [facility] Comment on above: Performed By: #### L 500.2500, L100.0100 ####[facility] [address] [place], [address] Basophils/100 WBC (Bld) 0.5 % Normal 0-1 [facility] Comment on above: Performed By: #### L 500.2500, L100.0100 ####[facility] [address] [place], [address] Eosinophils/100 WBC (Bld) 4.6 % Normal 0-5 [facility] Comment on above: Performed By: #### L 500.2500, L100.0100 ####[facility] [address] [place], [address] Erythrocyte distribution width (RBC) [Ratio] 14.2 % Normal 11.6-14.6 [facility] Comment on above: Performed By: #### L 500.2500, L100.0100 ####[facility] [address] [place], [address] Hematocrit (Bld) [Volume fraction] 29.0 % Low 40-54 [facility] Comment on above: Performed By: #### L 500.2500, L100.0100 ####[facility] [address] [place], [address] Hemoglobin (Bld) [Mass/Vol] 9.3 g/dL Low 13.0-16.5 [facility] Comment on above: Performed By: #### L 500.2500, L100.0100 ####[facility] [address] [place], [address] IG% 0.300 Normal 0.0-0.9 [facility] Comment on above: Result Comment: IG% - Immature Granulocytes (promyelocytes, myelocytes andmetamyelocytes) > 1% indicates that a LEFT SHIFT is Present. Performed By: #### L 500.2500, L100.0100 ####[facility] [address] [place], [address] Lymphocytes/100 WBC (Bld) 15.9 % Low 19-41 [facility] Comment on above: Performed By: #### L 500.2500, L100.0100 ####[facility] [address] [place], [address] MCH (RBC) [Entitic mass] 30.2 pg Normal 27.0-32.0 [facility] Comment on above: Performed By: #### L 500.2500, L100.0100 ####[facility] [address] [place], [address] MCHC (RBC) [Mass/Vol] 32.1 g/dL Normal 32-36 [facility] Comment on above: Performed By: #### L 500.2500, L100.0100 ####[facility] [address] [place], [address] MCV (RBC) [Entitic vol] 94.2 fL High 80-94 [facility] Comment on above: Performed By: #### L 500.2500, L100.0100 ####[facility] [address] [place], [address] Monocytes/100 WBC (Bld) 6.7 % Normal 0-10 [facility] Comment on above: Performed By: #### L 500.2500, L100.0100 ####[facility] [address] [place], [address] Neutrophils/100 WBC (Bld) 72.0 % High 47-70 [facility] Comment on above: Performed By: #### L 500.2500, L100.0100 ####[facility] [address] [place], [address] Nucleated RBC (Bld) [#/Vol] 0 10*3/uL Normal 0-5 [facility] Comment on above: Performed By: #### L 500.2500, L100.0100 ####[facility] [address] [place], [address] Platelet mean volume (Bld) [Entitic vol] 11.2 fL Normal 6.2-12.0 [facility] Comment on above: Performed By: #### L 500.2500, L100.0100 ####[facility] [address] [place], [address] Platelets (Bld) [#/Vol] 88 10*3/uL Low 150-450 [facility] Comment on above: Performed By: #### L 500.2500, L100.0100 ####[facility] [address] [place], [address] RBC (Bld) [#/Vol] 3.08 10*6/uL Low 4.6-6.2 [facility] Comment on above: Performed By: #### L 500.2500, L100.0100 ####[facility] [address] [place], [address] RDW SD 47.8 fl High 35.1-43.9 [facility] Comment on above: Performed By: #### L 500.2500, L100.0100 ####[facility] [address] [place], [address] WBC (Bld) [#/Vol] 6.3 10*3/uL Normal 4.4-11.0 [facility] Comment on above: Performed By: #### L 500.2500, L100.0100 ####[facility] [address] [place], [address] MR/CON.PCM.GIon 12-09-2023 MR/CON.PCM.GI Normal [facility] Basic Metabolic Profile (BMP )on 12-08-2023 BUN/CRE 43.2 RATIO High 10-20 [facility] Comment on above: Performed By: #### L 500.2500, L501.5200, L100.0100, L501.2300 ####[facility] [address] [place], [address] CA,Total 8.9 mg/dL Normal 8.5-10.1 [facility] Comment on above: Performed By: #### L 500.2500, L501.5200, L100.0100, L501.2300 ####[facility] [address] [place], [address] Chloride [Moles/Vol] 107 mmol/L Normal 98-107 [facility] Comment on above: Performed By: #### L 500.2500, L501.5200, L100.0100, L501.2300 ####[facility] [address] [place], [address] CO2 [Moles/Vol] 27.0 mmol/L Normal 21.0-32.0 [facility] Comment on above: Performed By: #### L 500.2500, L501.5200, L100.0100, L501.2300 ####[facility] [address] [place], [address] Creatinine [Mass/Vol] 2.29 mg/dL High 0.70-1.30 [facility] Comment on above: Result Comment: The validity of the calculated GFR GFRAA in patients over70 years has not been determined. Clinical correlation isessential. Performed By: #### L 500.2500, L501.5200, L100.0100, L501.2300 ####[facility] [address] [place], [address] ECRCL 24.45 ml/min Normal [facility] Comment on above: Performed By: #### L 500.2500, L501.5200, L100.0100, L501.2300 ####[facility] [address] [place], [address] EST GFR - AA 35 mL/min Low >60 [facility] Comment on above: Result Comment: Afri can Guyanese GFR Calc Performed By: #### L 500.2500, L501.5200, L100.0100, L501.2300 ####[facility] [address] [place], [address] GAP 5 Normal 5-15 [facility] Comment on above: Performed By: #### L 500.2500, L501.5200, L100.0100, L501.2300 ####[facility] [address] [place], [address] GFR/1.73 sq M.predicted among non-blacks MDRD (S/P/Bld) [Vol rate/Area] 29 mL/min/{1.73_m2} Low >60 [facility] Comment on above: Result Comment: Non- GFR Calc Performed By: #### L 500.2500, L501.5200, L100.0100, L501.2300 ####[facility] [address] [place], [address] Glucose [Mass/Vol] 142 mg/dL High 74-106 [facility] Comment on above: Result Comment: Fast ing Glucose result greater than or equal to 126 mg/dLsuggests DIABETES MELLITUS per A.D.A. criteria. Performed By: #### L 500.2500, L501.5200, L100.0100, L501.2300 ####[facility] [address] [place], [address] Potassium [Moles/Vol] 4.8 mmol/L Normal 3.5-5.1 [facility] Comment on above: Performed By: #### L 500.2500, L501.5200, L100.0100, L501.2300 ####[facility] [address] [place], [address] Sodium [Moles/Vol] 139 mmol/L Normal 136-145 [facility] Comment on above: Performed By: #### L 500.2500, L501.5200, L100.0100, L501.2300 ####[facility] [address] [place], [address] Urea nitrogen [Mass/Vol] 99 mg/dL High 7-18 [facility] Comment on above: Performed By: #### L 500.2500, L501.5200, L100.0100, L501.2300 ####[facility] [address] [place], [address] Bedside Glucoseon 12-08-2023 FINGERSTICK GLU 182 mg/dL High 74-106 [facility] Comment on above: Result Comment: MYKE GEMENT OF PATIENT CARE PER NURSING PROTOCOL Performed By: #### L 501.080 ####[facility] [address] [place], [address] FINGERSTICK GLU 176 mg/dL High 74-106 [facility] Comment on above: Result Comment: MYKE GEMENT OF PATIENT CARE PER NURSING PROTOCOL Performed By: #### L 501.080 ####[facility] [address] [place], [address] FINGERSTICK GLU 220 mg/dL High -106 [facility] Comment on above: Result Comment: MYKE GEMENT OF PATIENT CARE PER NURSING PROTOCOL Performed By: #### L 501.080 ####[facility] [address] [place], [address] FINGERSTICK GLU 131 mg/dL High -106 [facility] Comment on above: Result Comment: MYKE GEMENT OF PATIENT CARE PER NURSING PROTOCOL Performed By: #### L 501.080 ####[facility] [address] [place], [address] CBC W/Diff, Automatedon 11-11 TEAR DROP RARE Normal [facility] Comment on above: Performed By: #### L 500.2500, L501.5200, L100.0100, L501.2300 ####[facility] [address] [place], [address] HYPOCHROMASIA 1+ Normal [facility] Comment on above: Performed By: #### L 500.2500, L501.5200, L100.0100, L501.2300 ####[facility] [address] [place], [address] MICROCYTIC 1+ Normal [facility] Comment on above: Performed By: #### L 500.2500, L501.5200, L100.0100, L501.2300 ####[facility] [address] [place], [address] OVALOCYTE 2+ Normal [facility] Comment on above: Performed By: #### L 500.2500, L501.5200, L100.0100, L501.2300 ####[facility] [address] [place], [address] POLYCHROMASIA 1+ Normal [facility] Comment on above: Performed By: #### L 500.2500, L501.5200, L100.0100, L501.2300 ####[facility] [address] [place], [address] Anisocytosis Ql (Bld) 2+ Normal [facility] Comment on above: Performed By: #### L 500.2500, L501.5200, L100.0100, L501.2300 ####[facility] [address] [place], [address] PLT EST MOD DEC Normal ADEQ [facility] Comment on above: Performed By: #### L 500.2500, L501.5200, L100.0100, L501.2300 ####[facility] [address] [place], [address] SMEAR COMMENT SCANNED Normal [facility] Comment on above: Performed By: #### L 500.2500, L501.5200, L100.0100, L501.2300 ####[facility] [address] [place], [address] Magnesiumon 12-08-2023 Magnesium [Mass/Vol] 2.1 mg/dL Normal 1.6-2.6 [facility] Comment on above: Performed By: #### L 500.2500, L501.5200, L100.0100, L501.2300 ####[facility] [address] [place], [address] Phosphoruson 12-08-2023 Phosphate [Mass/Vol] 3.5 mg/dL Normal 2.5-4.9 [facility] Comment on above: Performed By: #### L 500.2500, L501.5200, L100.0100, L501.2300 ####[facility] [address] [place], [address] Stool Occult Blood iFOBon STOB Positive Normal [facility] Comment on above: Performed By: #### M 100.7900 ####[facility] [address] [place], [address] Bedside Glucoseon 12-07-2023 FINGERSTICK GLU 202 mg/dL High [address] [place] [address] Comment on above: Result Comment: MYKE GEMENT OF PATIENT CARE PER NURSING PROTOCOL Performed By: #### L 501.080 ####[facility] [address] [place], [address] FINGERSTICK GLU 206 mg/dL High [address] [place] [address] Comment on above: Result Comment: MYKE GEMENT OF PATIENT CARE PER NURSING PROTOCOL Performed By: #### L 501.080 ####[facility] [address] [place], [address] FINGERSTICK GLU 200 mg/dL High [address] [place] [address] Comment on above: Result Comment: MYKE GEMENT OF PATIENT CARE PER NURSING PROTOCOL Performed By: #### L 501.080 ####[facility] [address] [place], [address] FINGERSTICK GLU 136 mg/dL High [address] [place] [address] Comment on above: Result Comment: MYKE GEMENT OF PATIENT CARE PER NURSING PROTOCOL Performed By: #### L 501.080 ####[facility] [address] [place], [address] CBC W/Diff, Automatedon 09-2 Absolute Lymph 0.80 X10 3/uL Low 0.83-4.51 [facility] Comment on above: Performed By: #### L 100.0100, L503.6550, L500.4050, L503.6030, L501.5200 ####[facility] [address] [place], [address] Absolute Neut 5.6 X10 3/uL Normal 2.0-7.7 [facility] Comment on above: Performed By: #### L 100.0100, L503.6550, L500.4050, L503.6030, L501.5200 ####[facility] [address] [place], [address] Basophils/100 WBC (Bld) 0.1 % Normal 0-1 [facility] Comment on above: Performed By: #### L 100.0100, L503.6550, L500.4050, L503.6030, L501.5200 ####[facility] [address] [place], [address] Eosinophils/100 WBC (Bld) 2.7 % Normal 0-5 [facility] Comment on above: Performed By: #### L 100.0100, L503.6550, L500.4050, L503.6030, L501.5200 ####[facility] [address] [place], [address] Erythrocyte distribution width (RBC) [Ratio] 14.8 % High 11.6-14.6 [facility] Comment on above: Performed By: #### L 100.0100, L503.6550, L500.4050, L503.6030, L501.5200 ####[facility] [address] [place], [address] Hematocrit (Bld) [Volume fraction] 25.2 % Low 40-54 [facility] Comment on above: Performed By: #### L 100.0100, L503.6550, L500.4050, L503.6030, L501.5200 ####[facility] [address], [address] Hemoglobin (Bld) [Mass/Vol] 8.0 g/dL Low 13.0-16.5 [facility] Comment on above: Performed By: #### L 100.0100, L503.6550, L500.4050, L503.6030, L501.5200 ####[facility] [address] [place], [address] IG% 0.400 Normal 0.0-0.9 [facility] Comment on above: Result Comment: IG% - Immature Granulocytes (promyelocytes, myelocytes andmetamyelocytes) > 1% indicates that a LEFT SHIFT is Present. Performed By: #### L 100.0100, L503.6550, L500.4050, L503.6030, L501.5200 ####[facility] [address], [address] Lymphocytes/100 WBC (Bld) 11.3 % Low 19-41 [facility] Comment on above: Performed By: #### L 100.0100, L503.6550, L500.4050, L503.6030, L501.5200 ####[facility] [address] [place], [address] MCH (RBC) [Entitic mass] 30.4 pg Normal 27.0-32.0 [facility] Comment on above: Performed By: #### L 100.0100, L503.6550, L500.4050, L503.6030, L501.5200 ####[facility] [address] [place], [address] MCHC (RBC) [Mass/Vol] 31.7 g/dL Low 32-36 [facility] Comment on above: Performed By: #### L 100.0100, L503.6550, L500.4050, L503.6030, L501.5200 ####[facility] [address] [place], [address] MCV (RBC) [Entitic vol] 95.8 fL High 80-94 [facility] Comment on above: Performed By: #### L 100.0100, L503.6550, L500.4050, L503.6030, L501.5200 ####[facility] [address] [place], [address] Monocytes/100 WBC (Bld) 6.1 % Normal 0-10 [facility] Comment on above: Performed By: #### L 100.0100, L503.6550, L500.4050, L503.6030, L501.5200 ####[facility] [address] [place], [address] Neutrophils/100 WBC (Bld) 79.4 % High 47-70 [facility] Comment on above: Performed By: #### L 100.0100, L503.6550, L500.4050, L503.6030, L501.5200 ####[facility] [address] [place], [address] Nucleated RBC (Bld) [#/Vol] 0 10*3/uL Normal 0-5 [facility] Comment on above: Performed By: #### L 100.0100, L503.6550, L500.4050, L503.6030, L501.5200 ####[facility] [address] [place], [address] Platelet mean volume (Bld) [Entitic vol] 11.5 fL Normal 6.2-12.0 [facility] Comment on above: Performed By: #### L 100.0100, L503.6550, L500.4050, L503.6030, L501.5200 ####[facility] [address] [place], [address] Platelets (Bld) [#/Vol] 82 10*3/uL Low 150-450 [facility] Comment on above: Performed By: #### L 100.0100, L503.6550, L500.4050, L503.6030, L501.5200 ####[facility] [address] [place], [address] RBC (Bld) [#/Vol] 2.63 10*6/uL Low 4.6-6.2 [facility] Comment on above: Performed By: #### L 100.0100, L503.6550, L500.4050, L503.6030, L501.5200 ####[facility] [address] [place], [address] RDW SD 52.0 fl High 35.1-43.9 [facility] Comment on above: Performed By: #### L 100.0100, L503.6550, L500.4050, L503.6030, L501.5200 ####[facility] [address] [place], [address] WBC (Bld) [#/Vol] 7.1 10*3/uL Normal 4.4-11.0 [facility] Comment on above: Performed By: #### L 100.0100, L503.6550, L500.4050, L503.6030, L501.5200 ####[facility] [address] [place], [address] Comprehensive Metabolic Prof ilon 12-07-2023 Albumin [Mass/Vol] 2.9 g/dL Low 3.2-5.0 [facility] Comment on above: Order Comment: Comme nts: May add to ED labs Performed By: #### L 100.0100, L503.6550, L500.4050, L503.6030, L501.5200 ####[facility] [address] [place], [address] Albumin/Globulin [Mass ratio] 0.8 {ratio} Low 0.9-2.4 [facility] Comment on above: Order Comment: Comme nts: May add to ED labs Performed By: #### L 100.0100, L503.6550, L500.4050, L503.6030, L501.5200 ####[facility] [address] [place], [address] ALK P 60 U/L Normal 45-117 [facility] Comment on above: Order Comment: Comme nts: May add to ED labs Performed By: #### L 100.0100, L503.6550, L500.4050, L503.6030, L501.5200 ####[facility] [address] [place], [address] ALT [Catalytic activity/Vol] 23 U/L Normal 16-61 [facility] Comment on above: Order Comment: Comme nts: May add to ED labs Performed By: #### L 100.0100, L503.6550, L500.4050, L503.6030, L501.5200 ####[facility] [address] [place], [address] AST [Catalytic activity/Vol] 35 U/L Normal 15-37 [facility] Comment on above: Order Comment: Comme nts: May add to ED labs Performed By: #### L 100.0100, L503.6550, L500.4050, L503.6030, L501.5200 ####[facility] [address] [place], [address] Bilirubin [Mass/Vol] 1.60 mg/dL High 0.20-1.00 [facility] Comment on above: Order Comment: Comme nts: May add to ED labs Result Comment: For patients on eltrombopag therapy, use of Dimension [place] TBIL is not recommended. Performed By: #### L 100.0100, L503.6550, L500.4050, L503.6030, L501.5200 ####[facility] [address] [place], [address] BUN/CRE 35.5 RATIO High 10-20 [facility] Comment on above: Order Comment: Comme nts: May add to ED labs Performed By: #### L 100.0100, L503.6550, L500.4050, L503.6030, L501.5200 ####[facility] [address] [place], [address] CA,Total 8.7 mg/dL Normal 8.5-10.1 [facility] Comment on above: Order Comment: Comme nts: May add to ED labs Performed By: #### L 100.0100, L503.6550, L500.4050, L503.6030, L501.5200 ####[facility] [address] [place], [address] Chloride [Moles/Vol] 107 mmol/L Normal 98-107 [facility] Comment on above: Order Comment: Comme nts: May add to ED labs Performed By: #### L 100.0100, L503.6550, L500.4050, L503.6030, L501.5200 ####[facility] [address] [place], [address] CO2 [Moles/Vol] 29.0 mmol/L Normal 21.0-32.0 [facility] Comment on above: Order Comment: Comme nts: May add to ED labs Performed By: #### L 100.0100, L503.6550, L500.4050, L503.6030, L501.5200 ####[facility] [address] [place], [address] Creatinine [Mass/Vol] 2.73 mg/dL High 0.70-1.30 [facility] Comment on above: Order Comment: Comme nts: May add to ED labs Result Comment: The validity of the calculated GFR GFRAA in patients over70 years has not been determined. Clinical correlation isessential. Performed By: #### L 100.0100, L503.6550, L500.4050, L503.6030, L501.5200 ####[facility] [address] [place], [address] ECRCL 20.51 ml/min Normal [facility] Comment on above: Order Comment: Commbrisa nts: May add to ED labs Performed By: #### L 100.0100, L503.6550, L500.4050, L503.6030, L501.5200 ####[facility] [address] [place], [address] EST GFR - AA 29 mL/min Low >60 [facility] Comment on above: Order Comment: Comme nts: May add to ED labs Result Comment: Afri can Guyanese GFR Calc Performed By: #### L 100.0100, L503.6550, L500.4050, L503.6030, L501.5200 ####[facility] [address] [place], [address] GAP 6 Normal 5-15 [facility] Comment on above: Order Comment: Comme nts: May add to ED labs Performed By: #### L 100.0100, L503.6550, L500.4050, L503.6030, L501.5200 ####[facility] [address] [place], [address] GFR/1.73 sq M.predicted among non-blacks MDRD (S/P/Bld) [Vol rate/Area] 24 mL/min/{1.73_m2} Low >60 [facility] Comment on above: Order Comment: Comme nts: May add to ED labs Result Comment: Non- GFR Calc Performed By: #### L 100.0100, L503.6550, L500.4050, L503.6030, L501.5200 ####[facility] [address] [place], [address] Globulin (S) [Mass/Vol] 3.5 g/dL Normal 2.2-4.2 [facility] Comment on above: Order Comment: Commbrisa nts: May add to ED labs Performed By: #### L 100.0100, L503.6550, L500.4050, L503.6030, L501.5200 ####[facility] [address] [place], [address] Glucose [Mass/Vol] 142 mg/dL High 74-106 [facility] Comment on above: Order Comment: Comme nts: May add to ED labs Result Comment: Fast ing Glucose result greater than or equal to 126 mg/dLsuggests DIABETES MELLITUS per A.D.A. criteria. Performed By: #### L 100.0100, L503.6550, L500.4050, L503.6030, L501.5200 ####[facility] [address] [place], [address] Potassium [Moles/Vol] 4.4 mmol/L Normal 3.5-5.1 [facility] Comment on above: Order Comment: Commbrisa nts: May add to ED labs Performed By: #### L 100.0100, L503.6550, L500.4050, L503.6030, L501.5200 ####[facility] [address] [place], [address] Sodium [Moles/Vol] 142 mmol/L Normal 136-145 [facility] Comment on above: Order Comment: Commbrisa nts: May add to ED labs Performed By: #### L 100.0100, L503.6550, L500.4050, L503.6030, L501.5200 ####[facility] [address] [place], [address] T PROT 6.4 g/dL Normal 6.4-8.2 [facility] Comment on above: Order Comment: Comme nts: May add to ED labs Performed By: #### L 100.0100, L503.6550, L500.4050, L503.6030, L501.5200 ####[facility] [address] [place], [address] Urea nitrogen [Mass/Vol] 97 mg/dL High 7-18 [facility] Comment on above: Order Comment: Comme nts: May add to ED labs Performed By: #### L 100.0100, L503.6550, L500.4050, L503.6030, L501.5200 ####[facility] [address] [place], [address] Consultation - Cardiologyon 12-07-2023 Consultation - Cardiology Normal [facility] Consultation - Nephrologyon 12-07-2023 Consultation - Nephrology Normal [facility] Echo Limited w/Contraston Echo Limited w/Contrast Normal [facility] Ferritinon 12-07-2023 Ferritin [Mass/Vol] 37 ng/mL Normal 26-388 [facility] Comment on above: Order Comment: Comme nts: May add to ED labs Performed By: #### L 100.0100, L503.6550, L500.4050, L503.6030, L501.5200 ####[facility] [address] [place], [address] Iron+Iron Binding Capacityon 12-07-2023 Iron [Mass/Vol] 208 ug/dL High 65-175 [facility] Comment on above: Order Comment: Comme nts: May add to ED labs Performed By: #### L 100.0100, L503.6550, L500.4050, L503.6030, L501.5200 ####[facility] [address] [place], [address] IRON SATURATION 78.8 High 15.0-55.0 [facility] Comment on above: Order Comment: Comme nts: May add to ED labs Performed By: #### L 100.0100, L503.6550, L500.4050, L503.6030, L501.5200 ####[facility] [address] [place], [address] TIBC 264 ug/dL Normal 250-450 [facility] Comment on above: Order Comment: Comme nts: May add to ED labs Performed By: #### L 100.0100, L503.6550, L500.4050, L503.6030, L501.5200 ####[facility] [address] [place], [address] Magnesiumon 12-07-2023 Magnesium [Mass/Vol] 1.4 mg/dL Low 1.6-2.6 [facility] Comment on above: Order Comment: Comme nts: May add to ED labs Performed By: #### L 100.0100, L503.6550, L500.4050, L503.6030, L501.5200 ####[facility] [address] [place], [address] BNP,B-Type NATRIURETIC PEPTI Nico 12-06-2023 Natriuretic peptide B (Bld) [Mass/Vol] 149.9 pg/mL High 0-100 [facility] Comment on above: Performed By: #### L 500.4050, L100.0100, L501.5425, L503.6620 ####[facility] [address] [place], [address] BRCon 12-06-2023 RC Normal [facility] Comment on above: Result Comment: [id number] ON RC TRANSFUSED 12/06/23 1648 Performed By: #### B TS, BR ####[facility] [address] [place], [address] Result Comment: [id number] AN RC TRANSFUSED 12/08/23 [id number] AN RC TRANSFUSED 12/09/23 0038 Performed By: #### B RC ####[facility] [address] [place], [address] Bedside Glucoseon 12-06-2023 FINGERSTICK GLU 271 mg/dL High 74-106 [facility] Comment on above: Result Comment: MYKE GEMENT OF PATIENT CARE PER NURSING PROTOCOL Performed By: #### L 501.080 ####[facility] [address] [place], [address] FINGERSTICK GLU 267 mg/dL High 74-106 [facility] Comment on above: Result Comment: MYKE GEMENT OF PATIENT CARE PER NURSING PROTOCOL Performed By: #### L 501.080 ####[facility] [address] [place], [address] CBC W/Diff, Automatedon 11-11 Absolute Lymph 0.62 X10 3/uL Low 0.83-4.51 [facility] Comment on above: Performed By: #### L 500.4050, L100.0100, L501.5425, L503.6620 ####[facility] [address] [place], [address] Absolute Neut 4.3 X10 3/uL Normal 2.0-7.7 [facility] Comment on above: Performed By: #### L 500.4050, L100.0100, L501.5425, L503.6620 ####[facility] [address] [place], [address] Basophils/100 WBC (Bld) 0.2 % Normal 0-1 [facility] Comment on above: Performed By: #### L 500.4050, L100.0100, L501.5425, L503.6620 ####[facility] [address] [place], [address] Eosinophils/100 WBC (Bld) 3.3 % Normal 0-5 [facility] Comment on above: Performed By: #### L 500.4050, L100.0100, L501.5425, L503.6620 ####[facility] [address] [place], [address] Erythrocyte distribution width (RBC) [Ratio] 13.4 % Normal 11.6-14.6 [facility] Comment on above: Performed By: #### L 500.4050, L100.0100, L501.5425, L503.6620 ####[facility] [address] [place], [address] Hematocrit (Bld) [Volume fraction] 21.9 % Low 40-54 [facility] Comment on above: Performed By: #### L 500.4050, L100.0100, L501.5425, L503.6620 ####[facility] [address] [place], [address] Hemoglobin (Bld) [Mass/Vol] 6.8 g/dL Low 13.0-16.5 [facility] Comment on above: Performed By: #### L 500.4050, L100.0100, L501.5425, L503.6620 ####[facility] [address] [place], [address] IG% 0.400 Normal 0.0-0.9 [facility] Comment on above: Result Comment: IG% - Immature Granulocytes (promyelocytes, myelocytes andmetamyelocytes) > 1% indicates that a LEFT SHIFT is Present. Performed By: #### L 500.4050, L100.0100, L501.5425, L503.6620 ####[facility] [address] [place], [address] Lymphocytes/100 WBC (Bld) 11.3 % Low 19-41 [facility] Comment on above: Performed By: #### L 500.4050, L100.0100, L501.5425, L503.6620 ####[facility] [address] [place], [address] MCH (RBC) [Entitic mass] 30.2 pg Normal 27.0-32.0 [facility] Comment on above: Performed By: #### L 500.4050, L100.0100, L501.5425, L503.6620 ####[facility] [address] [place], [address] MCHC (RBC) [Mass/Vol] 31.1 g/dL Low 32-36 [facility] Comment on above: Performed By: #### L 500.4050, L100.0100, L501.5425, L503.6620 ####[facility] [address] [place], [address] MCV (RBC) [Entitic vol] 97.3 fL High 80-94 [facility] Comment on above: Performed By: #### L 500.4050, L100.0100, L501.5425, L503.6620 ####[facility] [address] [place], [address] Monocytes/100 WBC (Bld) 6.4 % Normal 0-10 [facility] Comment on above: Performed By: #### L 500.4050, L100.0100, L501.5425, L503.6620 ####[facility] [address] [place], [address] Neutrophils/100 WBC (Bld) 78.4 % High 47-70 [facility] Comment on above: Performed By: #### L 500.4050, L100.0100, L501.5425, L503.6620 ####[facility] [address] [place], [address] Nucleated RBC (Bld) [#/Vol] 0 10*3/uL Normal 0-5 [facility] Comment on above: Performed By: #### L 500.4050, L100.0100, L501.5425, L503.6620 ####[facility] [address] [place], [address] Platelet mean volume (Bld) [Entitic vol] 11.9 fL Normal 6.2-12.0 [facility] Comment on above: Performed By: #### L 500.4050, L100.0100, L501.5425, L5.6620 ####[facility] [address] [place], [address] Platelets (Bld) [#/Vol] 75 10*3/uL Low 150-450 [facility] Comment on above: Performed By: #### L 500.4050, L100.0100, L501.5425, L503.6620 ####[facility] [address] [place], [address] RBC (Bld) [#/Vol] 2.25 10*6/uL Low 4.6-6.2 [facility] Comment on above: Performed By: #### L 500.4050, L100.0100, L501.5425, L503.6620 ####[facility] [address] [place], [address] RDW SD 47.7 fl High 35.1-43.9 [facility] Comment on above: Performed By: #### L 500.4050, L100.0100, L501.5425, L503.6620 ####[facility] [address] [place], [address] WBC (Bld) [#/Vol] 5.5 10*3/uL Normal 4.4-11.0 [facility] Comment on above: Performed By: #### L 500.4050, L100.0100, L501.5425, L503.6620 ####[facility] [address] [place], [address] Chest 1 View (Portable)on Chest 1 View (Portable) Normal [facility] Comprehensive Metabolic Prof ilon 12-06-2023 Albumin [Mass/Vol] 3.0 g/dL Low 3.2-5.0 [facility] Comment on above: Order Comment: 1Y Performed By: #### L 500.4050, L100.0100, L501.5425, L503.6620 ####[facility] [address] [place], [address] Albumin/Globulin [Mass ratio] 0.9 {ratio} Normal 0.9-2.4 [facility] Comment on above: Order Comment: 1Y Performed By: #### L 500.4050, L100.0100, L501.5425, L503.6620 ####[facility] [address] [place], [address] ALK P 67 U/L Normal 45-117 [facility] Comment on above: Order Comment: 1Y Performed By: #### L 500.4050, L100.0100, L501.5425, L503.6620 ####[facility] [address] [place], [address] ALT [Catalytic activity/Vol] 19 U/L Normal 16-61 [facility] Comment on above: Order Comment: 1Y Performed By: #### L 500.4050, L100.0100, L501.5425, L503.6620 ####[facility] [address] [place], [address] AST [Catalytic activity/Vol] 12 U/L Low 15-37 [facility] Comment on above: Order Comment: 1Y Performed By: #### L 500.4050, L100.0100, L501.5425, L503.6620 ####[facility] [address] [place], [address] Bilirubin [Mass/Vol] 0.40 mg/dL Normal 0.20-1.00 [facility] Comment on above: Order Comment: 1Y Result Comment: For patients on eltrombopag therapy, use of Dimension [place] TBIL is not recommended. Performed By: #### L 500.4050, L100.0100, L501.5425, L503.6620 ####[facility] [address] [place], [address] BUN/CRE 29.4 RATIO High 10-20 [facility] Comment on above: Order Comment: 1Y Performed By: #### L 500.4050, L100.0100, L501.5425, [id number] ####[facility] [address] [place], [address] CA,Total 8.1 mg/dL Low 8.5-10.1 [facility] Comment on above: Order Comment: 1Y Performed By: #### L 500.4050, L100.0100, L501.5425, [id number] ####[facility] [address] [place], [address] Chloride [Moles/Vol] 106 mmol/L Normal 98-107 [facility] Comment on above: Order Comment: 1Y Performed By: #### L 500.4050, L100.0100, L501.5425, [id number] ####[facility] [address] [place], [address] CO2 [Moles/Vol] 26.0 mmol/L Normal 21.0-32.0 [facility] Comment on above: Order Comment: 1Y Performed By: #### L 500.4050, L100.0100, L501.5425, [id number] ####[facility] [address] [place], [address] Creatinine [Mass/Vol] 3.44 mg/dL High 0.70-1.30 [facility] Comment on above: Order Comment: 1Y Result Comment: The validity of the calculated GFR GFRAA in patients over70 years has not been determined. Clinical correlation isessential. Performed By: #### L 500.4050, L100.0100, L501.5425, L503.6620 ####[facility] [address] [place], [address] ECRCL 16.67 ml/min Normal [facility] Comment on above: Order Comment: 1Y Performed By: #### L 500.4050, L100.0100, L501.5425, L503.6620 ####[facility] [address] [place], [address] EST GFR - AA 22 mL/min Low >60 [facility] Comment on above: Order Comment: 1Y Result Comment: Afri can Guyanese GFR Calc Performed By: #### L 500.4050, L100.0100, L501.5425, L503.6620 ####[facility] [address] [place], [address] GAP 10 Normal 5-15 [facility] Comment on above: Order Comment: 1Y Performed By: #### L 500.4050, L100.0100, L501.5425, L503.6620 ####[facility] [address] [place], [address] GFR/1.73 sq M.predicted among non-blacks MDRD (S/P/Bld) [Vol rate/Area] 18 mL/min/{1.73_m2} Low >60 [facility] Comment on above: Order Comment: 1Y Result Comment: Non- GFR Calc Performed By: #### L 500.4050, L100.0100, L501.5425, L503.6620 ####[facility] [address] [place], [address] Globulin (S) [Mass/Vol] 3.3 g/dL Normal 2.2-4.2 [facility] Comment on above: Order Comment: 1Y Performed By: #### L 500.4050, L100.0100, L501.5425, L503.6620 ####[facility] [address] [place], [address] Glucose [Mass/Vol] 314 mg/dL High 74-106 [facility] Comment on above: Order Comment: 1Y Result Comment: Gluc ose result greater than or equal to 200 mg/dLsuggests DIABETES MELLITUS per A.D.A. criteria. Performed By: #### L 500.4050, L100.0100, L501.5425, L503.6620 ####[facility] [address] [place], [address] Potassium [Moles/Vol] 4.0 mmol/L Normal 3.5-5.1 [facility] Comment on above: Order Comment: 1Y Performed By: #### L 500.4050, L100.0100, L501.5425, L503.6620 ####[facility] [address] [place], [address] Sodium [Moles/Vol] 142 mmol/L Normal 136-145 [facility] Comment on above: Order Comment: 1Y Performed By: #### L 500.4050, L100.0100, L501.5425, L503.6620 ####[facility] [address] [place], [address] T PROT 6.3 g/dL Low 6.4-8.2 [facility] Comment on above: Order Comment: 1Y Performed By: #### L 500.4050, L100.0100, L501.5425, L503.6620 ####[facility] [address] [place], [address] Urea nitrogen [Mass/Vol] 101 mg/dL Invalid Interpretation Code 7-18 [facility] Comment on above: Order Comment: 1Y Result Comment: Crit ical Result(s) Called at: 14:23:51 12/06/2023 by:Didier Xiao to [facility]. Results read back by same. Performed By: #### L 500.4050, L100.0100, L501.5425, L503.6620 ####[facility] [address] [place], [address] Emergency Department Summary on 12-06-2023 Emergency Department Summary Normal [facility] H AND P Exam - Hospitaliston 12-06-2023 H&P Exam - Hospitalist Normal [facility] Hemoglobinon 12-06-2023 Hemoglobin (Bld) [Mass/Vol] 7.8 g/dL Low 13.0-16.5 [facility] Comment on above: Performed By: #### L 100.1300 ####[facility] [address] [place], [address] Kidney and Bladderon 024 Kidney and Bladder Normal [facility] L501.4020on 12-06-2023 TROPONIN-I HS 5240 pg/mL Invalid Interpretation Code 3.0-78.0 [facility] Comment on above: Order Comment: 'TROP ' Serial specimen #1, #2 or #3: 3 Result Comment: Plea se Note: New Test Units and Gender Specific Reference Ranges. For more information see Policy Stat Procedure [place] High Sensitivity Troponin (TNIH) and attachments. Performed By: #### L 501.4020 ####[facility] [address] [place], [address] TROPONIN-I HS 2618 pg/mL Invalid Interpretation Code 3.0-78.0 [facility] Comment on above: Result Comment: Crit ical Result(s) Called at: 19:14:36 12/06/2023 by: SARITHA. Results read back by Adam Please Note: New Test Units and Gender Specific Reference Ranges. For more information see Policy Stat Procedure [place] High Sensitivity Troponin (TNIH) and attachments. Performed By: #### L 501.4020 ####[facility] [address] [place], [address] L501.5425on 12-06-2023 TROPONIN-I HS 146 pg/mL Invalid Interpretation Code 3.0-78.0 [facility] Comment on above: Order Comment: 1Y Result Comment: Crit ical Result(s) Called at: 14:23:51 12/06/2023 by:Didier Xiao to ciao. Results read back by abdelrahman. Please Note: New Test Units and Gender Specific Reference Ranges. For more information see Policy Stat Procedure [place] High Sensitivity Troponin (TNIH) and attachments. Performed By: #### L 500.4050, L100.0100, L501.5425, L503.6620 ####[facility] [address] [place], [address] M100.678on 12-06-2023 M100.678 Pending SARS-CoV-2 (COVID 19) Negative INFLUENZA A Negative INFLUENZA B Negative RSV PCR Negative Normal [facility] Comment on above: Performed By: #### M 100.678 ####[facility] [address] [place], [address] Type AND Screenon 12-06-2023 Ab SCREEN GEL Negative Normal [facility] Comment on above: Order Comment: CMV N EG? NNumber of units to transfuse: 1Is pt's Hgb is = to 7.0 mg/dl or Hct </= 21%? YReason for Ordering Blood: ChronicIs there symptomatic anemia? Shin the blood/blood products to be transfused? YIs the patient having/had surgery? NWdesean Elaine Performed By: #### B TS, BRC ####[facility] [address] [place], [address] ABO and Rh group Nom (Bld) Blood group A Rh(D) negative Normal [facility] Comment on above: Order Comment: CMV N EG? NNumber of units to transfuse: 1Is pt's Hgb is = to 7.0 mg/dl or Hct </= 21%? YReason for Ordering Blood: ChronicIs there symptomatic anemia? Shin the blood/blood products to be transfused? YIs the patient having/had surgery? Ashlee Elaine Performed By: #### B TS, BRC ####[facility] [address] [place], [address] Urea Nitrogen, Urineon 12-05 URINE UREA 625 mg/dL Normal NO RANGE EST. [facility] Comment on above: Performed By: #### L 500.9400, L502.0715 ####[facility] [address] [place], [address] Urine Electrolytes- Randomon 12-06-2023 Sodium (U) [Moles/Vol] 42 mmol/L Normal Not Establ. [facility] Comment on above: Performed By: #### L 500.9400, L502.0715 ####[facility] [address] [place], [address] UR CL 15 mmol/L Normal Not Establ. [facility] Comment on above: Performed By: #### L 500.9400, L502.0715 ####[facility] [address] [place], [address] UR K 24.0 mmol/L Normal Not Establ. [facility] Comment on above: Performed By: #### L 500.9400, L502.0715 ####[facility] [address] [place], [address] Venous Blood Gason 4 Blood Gas Type DAYANA Normal [facility] Comment on above: Performed By: #### L 9000.0810 ####[facility] [address] [place], [address] CO2 [Moles/Vol] 27 mmol/L Normal 23-33 [facility] Comment on above: Performed By: #### L 9000.0810 ####[facility] [address] [place], [address] FI02 3.0 Normal [facility] Comment on above: Performed By: #### L 9000.0810 ####[facility] [address] [place], [address] HCO3 (Bld) [Moles/Vol] 25 mmol/L Normal 22-26 [facility] Comment on above: Performed By: #### L 9000.0810 ####[facility] [address] [place], [address] O2 Delivery Dev Cannula Normal [facility] Comment on above: Performed By: #### L 9000.0810 ####[facility] [address] [place], [address] SITE Not entered Normal [facility] Comment on above: Performed By: #### L 9000.0810 ####[facility] [address] [place], [address] VBG BE 0 mmol/L Normal -1.0-3.5 [facility] Comment on above: Performed By: #### L 9000.0810 ####[facility] [address] [place], [address] VBG pCO2 42.6 mmHg Normal 41-51 [facility] Comment on above: Performed By: #### L 9000.0810 ####[facility] [address] [place], [address] VBG pH 7.38 Normal 7.32-7.42 [facility] Comment on above: Performed By: #### L 9000.0810 ####[facility] [address] [place], [address] VBG PO2 53 mmHg High 25-40 [facility] Comment on above: Performed By: #### L 9000.0810 ####[facility] [address] [place], [address] VBG SO2 87 High 50-70 [facility] Comment on above: Performed By: #### L 9000.0810 ####[facility] [address] [place], [address] Basic Metabolic Profile (BMP )on 12-05-2023 BUN/CRE 31.3 RATIO High 10-20 [facility] Comment on above: Order Comment: ORDER S INTERNALLY WERE ALREADY DONE Performed By: #### L 500.2500 ####[facility] [address] [place], [address] CA,Total 8.3 mg/dL Low 8.5-10.1 [facility] Comment on above: Order Comment: ORDER S INTERNALLY WERE ALREADY DONE Performed By: #### L 500.2500 ####[facility] [address] [place], [address] Chloride [Moles/Vol] 104 mmol/L Normal 98-107 [facility] Comment on above: Order Comment: ORDER S INTERNALLY WERE ALREADY DONE Performed By: #### L 500.2500 ####[facility] [address] [place], [address] CO2 [Moles/Vol] 30.0 mmol/L Normal 21.0-32.0 [facility] Comment on above: Order Comment: ORDER S INTERNALLY WERE ALREADY DONE Performed By: #### L 500.2500 ####[facility] [address] [place], [address] Creatinine [Mass/Vol] 3.23 mg/dL High 0.70-1.30 [facility] Comment on above: Order Comment: ORDER S INTERNALLY WERE ALREADY DONE Result Comment: The validity of the calculated GFR GFRAA in patients over70 years has not been determined. Clinical correlation isessential. Performed By: #### L 500.2500 ####[facility] [address] [place], [address] EST GFR - AA 24 mL/min Low >60 [facility] Comment on above: Order Comment: ORDER S INTERNALLY WERE ALREADY DONE Result Comment: Afri can Guyanese GFR Calc Performed By: #### L 500.2500 ####[facility] [address] [place], [address] GAP 7 Normal 5-15 [facility] Comment on above: Order Comment: ORDER S INTERNALLY WERE ALREADY DONE Performed By: #### L 500.2500 ####[facility] [address] [place], [address] GFR/1.73 sq M.predicted among non-blacks MDRD (S/P/Bld) [Vol rate/Area] 20 mL/min/{1.73_m2} Low >60 [facility] Comment on above: Order Comment: ORDER S INTERNALLY WERE ALREADY DONE Result Comment: Non- GFR Calc Performed By: #### L 500.2500 ####[facility] [address] [place], [address] Glucose [Mass/Vol] 151 mg/dL High 74-106 [facility] Comment on above: Order Comment: ORDER S INTERNALLY WERE ALREADY DONE Result Comment: Fast ing Glucose result greater than or equal to 126 mg/dLsuggests DIABETES MELLITUS per A.D.A. criteria. Performed By: #### L 500.2500 ####[facility] [address] [place], [address] Potassium [Moles/Vol] 4.0 mmol/L Normal 3.5-5.1 [facility] Comment on above: Order Comment: ORDER S INTERNALLY WERE ALREADY DONE Performed By: #### L 500.2500 ####[facility] [address] [place], [address] Sodium [Moles/Vol] 141 mmol/L Normal 136-145 [facility] Comment on above: Order Comment: ORDER S INTERNALLY WERE ALREADY DONE Performed By: #### L 500.2500 ####[facility] [address] [place], [address] Urea nitrogen [Mass/Vol] 101 mg/dL Invalid Interpretation Code 7-18 [facility] Comment on above: Order Comment: ORDER S INTERNALLY WERE ALREADY DONE Result Comment: Crit ical Result(s) Called at: 14:07:14 12/05/2023 by: JEANETTE TO ANNETTA GAYLE. Results read back by same. Performed By: #### L 500.2500 ####[facility] [address] [place], [address] Abdomen/Pelvis W IV Cont ONL Yon 12-02-2023 Abdomen/Pelvis W IV Cont ONLY Normal [facility] Basic Metabolic Profile (BMP )on 12-02-2023 BUN/CRE 35.8 RATIO High 10-20 [facility] Comment on above: Performed By: #### L 500.2500, L100.0100 ####[facility] [address] [place], [address] CA,Total 8.8 mg/dL Normal 8.5-10.1 [facility] Comment on above: Performed By: #### L 500.2500, L100.0100 ####[facility] [address] [place], [address] Chloride [Moles/Vol] 104 mmol/L Normal 98-107 [facility] Comment on above: Performed By: #### L 500.2500, L100.0100 ####[facility] [address] [place], [address] CO2 [Moles/Vol] 30.0 mmol/L Normal 21.0-32.0 [facility] Comment on above: Performed By: #### L 500.2500, L100.0100 ####[facility] [address] [place], [address] Creatinine [Mass/Vol] 2.43 mg/dL High 0.70-1.30 [facility] Comment on above: Result Comment: The validity of the calculated GFR GFRAA in patients over70 years has not been determined. Clinical correlation isessential. Performed By: #### L 500.2500, L100.0100 ####[facility] [address] [place], [address] ECRCL 22.97 ml/min Normal [facility] Comment on above: Performed By: #### L 500.2500, L100.0100 ####[facility] [address] [place], [address] EST GFR - AA 33 mL/min Low >60 [facility] Comment on above: Result Comment: Afri can Guyanese GFR Calc Performed By: #### L 500.2500, L100.0100 ####[facility] [address] [place], [address] GAP 6 Normal 5-15 [facility] Comment on above: Performed By: #### L 500.2500, L100.0100 ####[facility] [address] [place], [address] GFR/1.73 sq M.predicted among non-blacks MDRD (S/P/Bld) [Vol rate/Area] 27 mL/min/{1.73_m2} Low >60 [facility] Comment on above: Result Comment: Non- GFR Calc Performed By: #### L 500.2500, L100.0100 ####[facility] [address] [place], [address] Glucose [Mass/Vol] 324 mg/dL High 74-106 [facility] Comment on above: Result Comment: Gluc ose result greater than or equal to 200 mg/dLsuggests DIABETES MELLITUS per A.D.A. criteria. Performed By: #### L 500.2500, L100.0100 ####[facility] [address] [place], [address] Potassium [Moles/Vol] 4.7 mmol/L Normal 3.5-5.1 [facility] Comment on above: Performed By: #### L 500.2500, L100.0100 ####[facility] [address] [place], [address] Sodium [Moles/Vol] 140 mmol/L Normal 136-145 [facility] Comment on above: Performed By: #### L 500.2500, L100.0100 ####[facility] [address] [place], [address] Urea nitrogen [Mass/Vol] 87 mg/dL High 7-18 [facility] Comment on above: Performed By: #### L 500.2500, L100.0100 ####[facility] [address] [place], [address] CBC W/Diff, Automatedon 11-11 Absolute Lymph 0.78 X10 3/uL Low 0.83-4.51 [facility] Comment on above: Performed By: #### L 500.2500, L100.0100 ####[facility] [address] [place], [address] Absolute Neut 6.5 X10 3/uL Normal 2.0-7.7 [facility] Comment on above: Performed By: #### L 500.2500, L100.0100 ####[facility] [address] [place], [address] Basophils/100 WBC (Bld) 0.1 % Normal 0-1 [facility] Comment on above: Performed By: #### L 500.2500, L100.0100 ####[facility] [address] [place], [address] Eosinophils/100 WBC (Bld) 2.7 % Normal 0-5 [facility] Comment on above: Performed By: #### L 500.2500, L100.0100 ####[facility] [address] [place], [address] Erythrocyte distribution width (RBC) [Ratio] 13.3 % Normal 11.6-14.6 [facility] Comment on above: Performed By: #### L 500.2500, L100.0100 ####[facility] [address] [place], [address] Hematocrit (Bld) [Volume fraction] 23.9 % Low 40-54 [facility] Comment on above: Performed By: #### L 500.2500, L100.0100 ####[facility] [address] [place], [address] Hemoglobin (Bld) [Mass/Vol] 7.7 g/dL Low 13.0-16.5 [facility] Comment on above: Performed By: #### L 500.2500, L100.0100 ####[facility] [address] [place], [address] IG% 0.300 Normal 0.0-0.9 [facility] Comment on above: Result Comment: IG% - Immature Granulocytes (promyelocytes, myelocytes andmetamyelocytes) > 1% indicates that a LEFT SHIFT is Present. Performed By: #### L 500.2500, L100.0100 ####[facility] [address] [place], [address] Lymphocytes/100 WBC (Bld) 9.9 % Low 19-41 [facility] Comment on above: Performed By: #### L 500.2500, L100.0100 ####[facility] [address] [place], [address] MCH (RBC) [Entitic mass] 30.7 pg Normal 27.0-32.0 [facility] Comment on above: Performed By: #### L 500.2500, L100.0100 ####[facility] [address] [place], [address] MCHC (RBC) [Mass/Vol] 32.2 g/dL Normal 32-36 [facility] Comment on above: Performed By: #### L 500.2500, L100.0100 ####[facility] [address] [place], [address] MCV (RBC) [Entitic vol] 95.2 fL High 80-94 [facility] Comment on above: Performed By: #### L 500.2500, L100.0100 ####[facility] [address] [place], [address] Monocytes/100 WBC (Bld) 5.3 % Normal 0-10 [facility] Comment on above: Performed By: #### L 500.2500, L100.0100 ####[facility] [address] [place], [address] Neutrophils/100 WBC (Bld) 81.7 % High 47-70 [facility] Comment on above: Performed By: #### L 500.2500, L100.0100 ####[facility] [address] [place], [address] Nucleated RBC (Bld) [#/Vol] 0 10*3/uL Normal 0-5 [facility] Comment on above: Performed By: #### L 500.2500, L100.0100 ####[facility] [address] [place], [address] Platelet mean volume (Bld) [Entitic vol] 11.1 fL Normal 6.2-12.0 [facility] Comment on above: Performed By: #### L 500.2500, L100.0100 ####[facility] [address] [place], [address] Platelets (Bld) [#/Vol] 85 10*3/uL Low 150-450 [facility] Comment on above: Performed By: #### L 500.2500, L100.0100 ####[facility] [address] [place], [address] RBC (Bld) [#/Vol] 2.51 10*6/uL Low 4.6-6.2 [facility] Comment on above: Performed By: #### L 500.2500, L100.0100 ####[facility] [address] [place], [address] RDW SD 46.6 fl High 35.1-43.9 [facility] Comment on above: Performed By: #### L 500.2500, L100.0100 ####[facility] [address] [place], [address] WBC (Bld) [#/Vol] 7.9 10*3/uL Normal 4.4-11.0 [facility] Comment on above: Performed By: #### L 500.2500, L100.0100 ####[facility] [address] [place], [address] Emergency Department Summary on 12-02-2023 Emergency Department Summary Normal [facility] Urinalysis, Completeon 12-01 BACTERIA 0 SEEN Normal None Seen [facility] Comment on above: Order Comment: YUKI CTOR TO SPECIFY Performed By: #### L 400.0001 ####[facility] [address] [place], [address] EPI,SQUAMOUS 0 SEEN Normal 0-5 [facility] Comment on above: Order Comment: COLLE CTOR TO SPECIFY Performed By: #### L 400.0001 ####[facility] [address] [place], [address] Mucus Ql (Urine sed) 0 SEEN Normal [facility] Comment on above: Order Comment: COLLE CTOR TO SPECIFY Performed By: #### L 400.0001 ####[facility] [address] [place], [address] RBC 0 SEEN Normal 0-5 [facility] Comment on above: Order Comment: COLLE CTOR TO SPECIFY Performed By: #### L 400.0001 ####[facility] [address] [place], [address] WBC 0 SEEN Normal 0-5 [facility] Comment on above: Order Comment: COLLE CTOR TO SPECIFY Performed By: #### L 400.0001 ####[facility] [address] [place], [address] Basic Metabolic Profile (BMP )on 11-23-2023 BUN/CRE 40.1 RATIO High 10-20 [facility] Comment on above: Performed By: #### L 500.2500, L100.0100 ####[facility] [address] [place], [address] CA,Total 8.7 mg/dL Normal 8.5-10.1 [facility] Comment on above: Performed By: #### L 500.2500, L100.0100 ####[facility] [address] [place], [address] Chloride [Moles/Vol] 105 mmol/L Normal 98-107 [facility] Comment on above: Performed By: #### L 500.2500, L100.0100 ####[facility] [address] [place], [address] CO2 [Moles/Vol] 23.0 mmol/L Normal 21.0-32.0 [facility] Comment on above: Performed By: #### L 500.2500, L100.0100 ####[facility] [address] [place], [address] Creatinine [Mass/Vol] 2.84 mg/dL High 0.70-1.30 [facility] Comment on above: Result Comment: The validity of the calculated GFR GFRAA in patients over70 years has not been determined. Clinical correlation isessential. Performed By: #### L 500.2500, L100.0100 ####[facility] [address] [place], [address] EST GFR - AA 27 mL/min Low >60 [facility] Comment on above: Result Comment: Afri can Guyanese GFR Calc Performed By: #### L 500.2500, L100.0100 ####[facility] [address] [place], [address] GAP 11 Normal 5-15 [facility] Comment on above: Performed By: #### L 500.2500, L100.0100 ####[facility] [address] [place], [address] GFR/1.73 sq M.predicted among non-blacks MDRD (S/P/Bld) [Vol rate/Area] 23 mL/min/{1.73_m2} Low >60 [facility] Comment on above: Result Comment: Non- GFR Calc Performed By: #### L 500.2500, L100.0100 ####[facility] [address] [place], [address] Glucose [Mass/Vol] 457 mg/dL Invalid Interpretation Code 74-106 [facility] Comment on above: Result Comment: Crit ical Result(s) Called at: 13:43:59 11/23/2023 by: Jeremy Clark. Results read back by same.Glucose result greater than or equal to 200 mg/dLsuggests DIABETES MELLITUS per A.D.A. criteria. Performed By: #### L 500.2500, L100.0100 ####[facility] [address] [place], [address] Potassium [Moles/Vol] 4.7 mmol/L Normal 3.5-5.1 [facility] Comment on above: Performed By: #### L 500.2500, L100.0100 ####[facility] [address] [place], [address] Sodium [Moles/Vol] 139 mmol/L Normal 136-145 [facility] Comment on above: Performed By: #### L 500.2500, L100.0100 ####[facility] [address] [place], [address] Urea nitrogen [Mass/Vol] 114 mg/dL Invalid Interpretation Code 7-18 [facility] Comment on above: Result Comment: Crit ical Result(s) Called at: 13:43:59 11/23/2023 by: Jeremy to Ana M Clark. Results read back by same. Performed By: #### L 500.2500, L100.0100 ####[facility] [address] [place], [address] CBC W/Diff, Automatedon 09-03 14-2023 Absolute Lymph 0.64 X10 3/uL Low 0.83-4.51 [facility] Comment on above: Performed By: #### L 500.2500, L100.0100 ####[facility] [address] [place], [address] Absolute Neut 7.2 X10 3/uL Normal 2.0-7.7 [facility] Comment on above: Performed By: #### L 500.2500, L100.0100 ####[facility] [address] [place], [address] Basophils/100 WBC (Bld) 0.1 % Normal 0-1 [facility] Comment on above: Performed By: #### L 500.2500, L100.0100 ####[facility] [address] [place], [address] Eosinophils/100 WBC (Bld) 0.5 % Normal 0-5 [facility] Comment on above: Performed By: #### L 500.2500, L100.0100 ####[facility] [address] [place], [address] Erythrocyte distribution width (RBC) [Ratio] 14.7 % High 11.6-14.6 [facility] Comment on above: Performed By: #### L 500.2500, L100.0100 ####[facility] [address] [place], [address] Hematocrit (Bld) [Volume fraction] 27.3 % Low 40-54 [facility] Comment on above: Performed By: #### L 500.2500, L100.0100 ####[facility] [address] [place], [address] Hemoglobin (Bld) [Mass/Vol] 8.4 g/dL Low 13.0-16.5 [facility] Comment on above: Performed By: #### L 500.2500, L100.0100 ####[facility] [address] [place], [address] IG% 0.900 Normal 0.0-0.9 [facility] Comment on above: Result Comment: IG% - Immature Granulocytes (promyelocytes, myelocytes andmetamyelocytes) > 1% indicates that a LEFT SHIFT is Present. Performed By: #### L 500.2500, L100.0100 ####[facility] [address] [place], [address] Lymphocytes/100 WBC (Bld) 7.8 % Low 19-41 [facility] Comment on above: Performed By: #### L 500.2500, L100.0100 ####[facility] [address] [place], [address] MCH (RBC) [Entitic mass] 29.8 pg Normal 27.0-32.0 [facility] Comment on above: Performed By: #### L 500.2500, L100.0100 ####[facility] [address] [place], [address] MCHC (RBC) [Mass/Vol] 30.8 g/dL Low 32-36 [facility] Comment on above: Performed By: #### L 500.2500, L100.0100 ####[facility] [address] [place], [address] MCV (RBC) [Entitic vol] 96.8 fL High 80-94 [facility] Comment on above: Performed By: #### L 500.2500, L100.0100 ####[facility] [address] [place], [address] Monocytes/100 WBC (Bld) 3.1 % Normal 0-10 [facility] Comment on above: Performed By: #### L 500.2500, L100.0100 ####[facility] [address] [place], [address] Neutrophils/100 WBC (Bld) 87.6 % High 47-70 [facility] Comment on above: Performed By: #### L 500.2500, L100.0100 ####[facility] [address] [place], [address] Nucleated RBC (Bld) [#/Vol] 0 10*3/uL Normal 0-5 [facility] Comment on above: Performed By: #### L 500.2500, L100.0100 ####[facility] [address] [place], [address] Platelet mean volume (Bld) [Entitic vol] 11.8 fL Normal 6.2-12.0 [facility] Comment on above: Performed By: #### L 500.2500, L100.0100 ####[facility] [address] [place], [address] Platelets (Bld) [#/Vol] 117 10*3/uL Low 150-450 [facility] Comment on above: Performed By: #### L 500.2500, L100.0100 ####[facility] [address] [place], [address] RBC (Bld) [#/Vol] 2.82 10*6/uL Low 4.6-6.2 [facility] Comment on above: Performed By: #### L 500.2500, L100.0100 ####[facility] [address] [place], [address] RDW SD 52.2 fl High 35.1-43.9 [facility] Comment on above: Performed By: #### L 500.2500, L100.0100 ####[facility] [address] [place], [address] WBC (Bld) [#/Vol] 8.2 10*3/uL Normal 4.4-11.0 [facility] Comment on above: Performed By: #### L 500.2500, L100.0100 ####[facility] [address] [place], [address] BNP,B-Type NATRIURETIC PEPTI Nico 11-20-2023 Natriuretic peptide B (Bld) [Mass/Vol] 186.8 pg/mL High 0-100 [facility] Comment on above: Performed By: #### L 503.6620 ####[facility] [address] [place], [address] Basic Metabolic Profile (BMP )on 11-20-2023 BUN/CRE 50.2 RATIO High 10-20 [facility] Comment on above: Performed By: #### L 100.0100, L500.2500 ####[facility] [address] [place], [address] CA,Total 9.6 mg/dL Normal 8.5-10.1 [facility] Comment on above: Performed By: #### L 100.0100, L500.2500 ####[facility] [address] [place], [address] Chloride [Moles/Vol] 107 mmol/L Normal 98-107 [facility] Comment on above: Performed By: #### L 100.0100, L500.2500 ####[facility] [address] [place], [address] CO2 [Moles/Vol] 26.0 mmol/L Normal 21.0-32.0 [facility] Comment on above: Performed By: #### L 100.0100, L500.2500 ####[facility] [address] [place], [address] Creatinine [Mass/Vol] 2.09 mg/dL High 0.70-1.30 [facility] Comment on above: Result Comment: The validity of the calculated GFR GFRAA in patients over70 years has not been determined. Clinical correlation isessential. Performed By: #### L 100.0100, L500.2500 ####[facility] [address] [place], [address] ECRCL 26.58 ml/min Normal [facility] Comment on above: Performed By: #### L 100.0100, L500.2500 ####[facility] [address] [place], [address] EST GFR - AA 39 mL/min Low >60 [facility] Comment on above: Result Comment: Afri can Guyanese GFR Calc Performed By: #### L 100.0100, L500.2500 ####[facility] [address] [place], [address] GAP 7 Normal 5-15 [facility] Comment on above: Performed By: #### L 100.0100, L500.2500 ####[facility] [address] [place], [address] GFR/1.73 sq M.predicted among non-blacks MDRD (S/P/Bld) [Vol rate/Area] 32 mL/min/{1.73_m2} Low >60 [facility] Comment on above: Result Comment: Non- GFR Calc Performed By: #### L 100.0100, L500.2500 ####[facility] [address] [place], [address] Glucose [Mass/Vol] 212 mg/dL High 74-106 [facility] Comment on above: Result Comment: Gluc ose result greater than or equal to 200 mg/dLsuggests DIABETES MELLITUS per A.D.A. criteria. Performed By: #### L 100.0100, L500.2500 ####[facility] [address] [place], [address] Potassium [Moles/Vol] 4.7 mmol/L Normal 3.5-5.1 [facility] Comment on above: Performed By: #### L 100.0100, L500.2500 ####[facility] [address] [place], [address] Sodium [Moles/Vol] 140 mmol/L Normal 136-145 [facility] Comment on above: Performed By: #### L 100.0100, L500.2500 ####[facility] [address] [place], [address] Urea nitrogen [Mass/Vol] 105 mg/dL Invalid Interpretation Code 7-18 [facility] Comment on above: Result Comment: Crit ical Result(s) Called at: 07:44:50 11/20/2023 by: TUCKER Wilson. Results read back by same. Performed By: #### L 100.0100, L500.2500 ####[facility] [address] [place], [address] Bedside Glucoseon 11-20-2023 FINGERSTICK GLU 295 mg/dL High 74-106 [facility] Comment on above: Result Comment: MYKE GEMENT OF PATIENT CARE PER NURSING PROTOCOL Performed By: #### L 501.080 ####[facility] [address] [place], [address] FINGERSTICK GLU 285 mg/dL High 74-106 [facility] Comment on above: Result Comment: MYKE GEMENT OF PATIENT CARE PER NURSING PROTOCOL Performed By: #### L 501.080 ####[facility] [address] [place], [address] FINGERSTICK GLU 194 mg/dL High 74-106 [facility] Comment on above: Result Comment: MYKE GEMENT OF PATIENT CARE PER NURSING PROTOCOL Performed By: #### L 501.080 ####[facility] [address] [place], [address] CBC W/Diff, Automatedon 09-1 0-4 Absolute Lymph 0.66 X10 3/uL Low 0.83-4.51 [facility] Comment on above: Performed By: #### L 100.0100, L500.2500 ####[facility] [address] [place], [address] Absolute Neut 9.9 X10 3/uL High 2.0-7.7 [facility] Comment on above: Performed By: #### L 100.0100, L500.2500 ####[facility] [address] [place], [address] Basophils/100 WBC (Bld) 0.0 % Normal 0-1 [facility] Comment on above: Performed By: #### L 100.0100, L500.2500 ####[facility] [address] [place], [address] Eosinophils/100 WBC (Bld) 0.0 % Normal 0-5 [facility] Comment on above: Performed By: #### L 100.0100, L500.2500 ####[facility] [address] [place], [address] Erythrocyte distribution width (RBC) [Ratio] 14.8 % High 11.6-14.6 [facility] Comment on above: Performed By: #### L 100.0100, L500.2500 ####[facility] [address] [place], [address] Hematocrit (Bld) [Volume fraction] 24.8 % Low 40-54 [facility] Comment on above: Performed By: #### L 100.0100, L500.2500 ####[facility] [address] [place], [address] Hemoglobin (Bld) [Mass/Vol] 8.1 g/dL Low 13.0-16.5 [facility] Comment on above: Performed By: #### L 100.0100, L500.2500 ####[facility] [address] [place], [address] IG% 0.700 Normal 0.0-0.9 [facility] Comment on above: Result Comment: IG% - Immature Granulocytes (promyelocytes, myelocytes andmetamyelocytes) > 1% indicates that a LEFT SHIFT is Present. Performed By: #### L 100.0100, L500.2500 ####[facility] [address] [place], [address] Lymphocytes/100 WBC (Bld) 6.1 % Low 19-41 [facility] Comment on above: Performed By: #### L 100.0100, L500.2500 ####[facility] [address] [place], [address] MCH (RBC) [Entitic mass] 31.2 pg Normal 27.0-32.0 [facility] Comment on above: Performed By: #### L 100.0100, L500.2500 ####[facility] [address] [place], [address] MCHC (RBC) [Mass/Vol] 32.7 g/dL Normal 32-36 [facility] Comment on above: Performed By: #### L 100.0100, L500.2500 ####[facility] [address] [place], [address] MCV (RBC) [Entitic vol] 95.4 fL High 80-94 [facility] Comment on above: Performed By: #### L 100.0100, L500.2500 ####[facility] [address] [place], [address] Monocytes/100 WBC (Bld) 2.5 % Normal 0-10 [facility] Comment on above: Performed By: #### L 100.0100, L500.2500 ####[facility] [address] [place], [address] Neutrophils/100 WBC (Bld) 90.7 % High 47-70 [facility] Comment on above: Performed By: #### L 100.0100, L500.2500 ####[facility] [address] [place], [address] Nucleated RBC (Bld) [#/Vol] 0 10*3/uL Normal 0-5 [facility] Comment on above: Performed By: #### L 100.0100, L500.2500 ####[facility] [address] [place], [address] Platelet mean volume (Bld) [Entitic vol] 11.0 fL Normal 6.2-12.0 [facility] Comment on above: Performed By: #### L 100.0100, L500.2500 ####[facility] [address] [place], [address] Platelets (Bld) [#/Vol] 107 10*3/uL Low 150-450 [facility] Comment on above: Performed By: #### L 100.0100, L500.2500 ####[facility] [address] [place], [address] RBC (Bld) [#/Vol] 2.60 10*6/uL Low 4.6-6.2 [facility] Comment on above: Performed By: #### L 100.0100, L500.2500 ####[facility] [address] [place], [address] RDW SD 51.3 fl High 35.1-43.9 [facility] Comment on above: Performed By: #### L 100.0100, L500.2500 ####[facility] [address] [place], [address] WBC (Bld) [#/Vol] 10.9 10*3/uL Normal 4.4-11.0 [facility] Comment on above: Performed By: #### L 100.0100, L500.2500 ####[facility] [address] [place], [address] Chest 1 View (Portable)on Chest 1 View (Portable) Normal [facility] Consultation - Nephrologyon 11-20-2023 Consultation - Nephrology Normal [facility] Discharge Instructionon 11-10 Discharge Instruction Normal [facility] Liver Profileon 11-20-2023 Albumin [Mass/Vol] 3.3 g/dL Normal 3.2-5.0 [facility] Comment on above: Order Comment: Add-o n to morning labs if possible Performed By: #### L 500.3400 ####[facility] [address] [place], [address] ALK P 71 U/L Normal 45-117 [facility] Comment on above: Order Comment: Add-o n to morning labs if possible Performed By: #### L 500.3400 ####[facility] [address] [place], [address] ALT [Catalytic activity/Vol] 17 U/L Normal 16-61 [facility] Comment on above: Order Comment: Add-o n to morning labs if possible Performed By: #### L 500.3400 ####[facility] [address] [place], [address] AST [Catalytic activity/Vol] 9 U/L Low 15-37 [facility] Comment on above: Order Comment: Add-o n to morning labs if possible Performed By: #### L 500.3400 ####[facility] [address] [place], [address] Bilirubin [Mass/Vol] 0.40 mg/dL Normal 0.20-1.00 [facility] Comment on above: Order Comment: Add-o n to morning labs if possible Result Comment: For patients on eltrombopag therapy, use of Dimension [place] TBIL is not recommended. Performed By: #### L 500.3400 ####[facility] [address] [place], [address] Bilirubin.direct [Mass/Vol] 0.10 mg/dL Normal 0.00-0.30 [facility] Comment on above: Order Comment: Add-o n to morning labs if possible Performed By: #### L 500.3400 ####[facility] [address] [place], [address] Globulin (S) [Mass/Vol] 3.0 g/dL Normal 2.2-4.2 [facility] Comment on above: Order Comment: Add-o n to morning labs if possible Performed By: #### L 500.3400 ####[facility] [address] [place], [address] T PROT 6.3 g/dL Low 6.4-8.2 [facility] Comment on above: Order Comment: Add-o n to morning labs if possible Performed By: #### L 500.3400 ####[facility] [address] [place], [address] Protein+Creatinine Ratio,Uri neon 11-20-2023 PROT:CRE RATIO 683 mg/g CRE High 0-200 [facility] Comment on above: Performed By: #### L 501.0900 ####[facility] [address] [place], [address] Protein (U) [Mass/Vol] 35.3 mg/dL High <11.9 [facility] Comment on above: Performed By: #### L 501.0900 ####[facility] [address] [place], [address] UR CREAT 51.70 mg/dL Normal NO RANGE EST. [facility] Comment on above: Performed By: #### L 501.0900 ####[facility] [address] [place], [address] Venous Blood Gason 4 Blood Gas Type DAYANA Normal [facility] Comment on above: Performed By: #### L 9000.0810 ####[facility] [address] [place], [address] CO2 [Moles/Vol] 24 mmol/L Normal 23-33 [facility] Comment on above: Performed By: #### L 9000.0810 ####[facility] [address] [place], [address] FI02 3.0 Normal [facility] Comment on above: Performed By: #### L 9000.0810 ####[facility] [address] [place], [address] HCO3 (Bld) [Moles/Vol] 23 mmol/L Normal 22-26 [facility] Comment on above: Performed By: #### L 9000.0810 ####[facility] [address] [place], [address] O2 Delivery Dev Cannula Normal [facility] Comment on above: Performed By: #### L 9000.0810 ####[facility] [address] [place], [address] SITE Not entered Normal [facility] Comment on above: Performed By: #### L 9000.0810 ####[facility] [address] [place], [address] VBG BE -3 mmol/L Low -1.0-3.5 [facility] Comment on above: Performed By: #### L 9000.0810 ####[facility] [address] [place], [address] VBG pCO2 42.2 mmHg Normal 41-51 [facility] Comment on above: Performed By: #### L 9000.0810 ####[facility] [address] [place], [address] VBG pH 7.34 Normal 7.32-7.42 [facility] Comment on above: Performed By: #### L 9000.0810 ####[facility] [address] [place], [address] VBG PO2 55 mmHg High 25-40 [facility] Comment on above: Performed By: #### L 9000.0810 ####[facility] [address] [place], [address] VBG SO2 86 High 50-70 [facility] Comment on above: Performed By: #### L 9000.0810 ####[facility] [address] [place], [address] Basic Metabolic Profile (BMP )on 11-19-2023 BUN/CRE 42.7 RATIO High 10-20 [facility] Comment on above: Performed By: #### L 500.2500, L100.0100 ####[facility] [address] [place], [address] CA,Total 9.2 mg/dL Normal 8.5-10.1 [facility] Comment on above: Performed By: #### L 500.2500, L100.0100 ####[facility] [address] [place], [address] Chloride [Moles/Vol] 105 mmol/L Normal 98-107 [facility] Comment on above: Performed By: #### L 500.2500, L100.0100 ####[facility] [address] [place], [address] CO2 [Moles/Vol] 26.0 mmol/L Normal 21.0-32.0 [facility] Comment on above: Performed By: #### L 500.2500, L100.0100 ####[facility] [address] [place], [address] Creatinine [Mass/Vol] 2.13 mg/dL High 0.70-1.30 [facility] Comment on above: Result Comment: The validity of the calculated GFR GFRAA in patients over70 years has not been determined. Clinical correlation isessential. Performed By: #### L 500.2500, L100.0100 ####[facility] [address] [place], [address] ECRCL 26.08 ml/min Normal [facility] Comment on above: Performed By: #### L 500.2500, L100.0100 ####[facility] [address] [place], [address] EST GFR - AA 38 mL/min Low >60 [facility] Comment on above: Result Comment: Afri can Guyanese GFR Calc Performed By: #### L 500.2500, L100.0100 ####[facility] [address] [place], [address] GAP 11 Normal 5-15 [facility] Comment on above: Performed By: #### L 500.2500, L100.0100 ####[facility] [address] [place], [address] GFR/1.73 sq M.predicted among non-blacks MDRD (S/P/Bld) [Vol rate/Area] 32 mL/min/{1.73_m2} Low >60 [facility] Comment on above: Result Comment: Non- GFR Calc Performed By: #### L 500.2500, L100.0100 ####[facility] [address] [place], [address] Glucose [Mass/Vol] 200 mg/dL High 74-106 [facility] Comment on above: Result Comment: Gluc ose result greater than or equal to 200 mg/dLsuggests DIABETES MELLITUS per A.D.A. criteria. Performed By: #### L 500.2500, L100.0100 ####[facility] [address] [place], [address] Potassium [Moles/Vol] 4.4 mmol/L Normal 3.5-5.1 [facility] Comment on above: Performed By: #### L 500.2500, L100.0100 ####[facility] [address] [place], [address] Sodium [Moles/Vol] 142 mmol/L Normal 136-145 [facility] Comment on above: Performed By: #### L 500.2500, L100.0100 ####[facility] [address] [place], [address] Urea nitrogen [Mass/Vol] 91 mg/dL High 7-18 [facility] Comment on above: Performed By: #### L 500.2500, L100.0100 ####[facility] [address] [place], [address] Bedside Glucoseon 11-19-2023 FINGERSTICK GLU 262 mg/dL High 74-106 [facility] Comment on above: Result Comment: MYKE GEMENT OF PATIENT CARE PER NURSING PROTOCOL Performed By: #### L 501.080 ####[facility] [address] [place], [address] FINGERSTICK GLU 142 mg/dL High 74-106 [facility] Comment on above: Result Comment: MYKE GEMENT OF PATIENT CARE PER NURSING PROTOCOL Performed By: #### L 501.080 ####[facility] [address] [place], [address] FINGERSTICK GLU 284 mg/dL High 74-106 [facility] Comment on above: Result Comment: MYKE GEMENT OF PATIENT CARE PER NURSING PROTOCOL Performed By: #### L 501.080 ####[facility] [address] [place], [address] FINGERSTICK GLU 201 mg/dL High 74-106 [facility] Comment on above: Result Comment: MYKE GEMENT OF PATIENT CARE PER NURSING PROTOCOL Performed By: #### L 501.080 ####[facility] [address] [place], [address] FINGERSTICK GLU 289 mg/dL High 74-106 [facility] Comment on above: Result Comment: MYKE GEMENT OF PATIENT CARE PER NURSING PROTOCOL Performed By: #### L 501.080 ####[facility] [address] [place], [address] CBC W/Diff, Automatedon 09-0 PLT EST SLT DEC Normal ADEQ [facility] Comment on above: Performed By: #### L 500.2500, L100.0100 ####[facility] [address] [place], [address] 12 Lead EKGon 11-18-2023 12 Lead EKG Normal [facility] BNP,B-Type NATRIURETIC PEPTI Nico 11-18-2023 Natriuretic peptide B (Bld) [Mass/Vol] 107.6 pg/mL High 0-100 [facility] Comment on above: Performed By: #### L 503.6620 ####[facility] [address] [place], [address] Basic Metabolic Profile (BMP )on 11-18-2023 BUN/CRE 36.3 RATIO High 10-20 [facility] Comment on above: Performed By: #### L 500.2500, L100.0100 ####[facility] [address] [place], [address] CA,Total 8.7 mg/dL Normal 8.5-10.1 [facility] Comment on above: Performed By: #### L 500.2500, L100.0100 ####[facility] [address] [place], [address] Chloride [Moles/Vol] 110 mmol/L High 98-107 [facility] Comment on above: Performed By: #### L 500.2500, L100.0100 ####[facility] [address] [place], [address] CO2 [Moles/Vol] 28.0 mmol/L Normal 21.0-32.0 [facility] Comment on above: Performed By: #### L 500.2500, L100.0100 ####[facility] [address] [place], [address] Creatinine [Mass/Vol] 2.56 mg/dL High 0.70-1.30 [facility] Comment on above: Result Comment: The validity of the calculated GFR GFRAA in patients over70 years has not been determined. Clinical correlation isessential. Performed By: #### L 500.2500, L100.0100 ####[facility] [address] [place], [address] ECRCL 21.65 ml/min Normal [facility] Comment on above: Performed By: #### L 500.2500, L100.0100 ####[facility] [address] [place], [address] EST GFR - AA 31 mL/min Low >60 [facility] Comment on above: Result Comment: Afri can Guyanese GFR Calc Performed By: #### L 500.2500, L100.0100 ####[facility] [address] [place], [address] GAP 6 Normal 5-15 [facility] Comment on above: Performed By: #### L 500.2500, L100.0100 ####[facility] [address] [place], [address] GFR/1.73 sq M.predicted among non-blacks MDRD (S/P/Bld) [Vol rate/Area] 26 mL/min/{1.73_m2} Low >60 [facility] Comment on above: Result Comment: Non- GFR Calc Performed By: #### L 500.2500, L100.0100 ####[facility] [address] [place], [address] Glucose [Mass/Vol] 188 mg/dL High 74-106 [facility] Comment on above: Result Comment: Fast ing Glucose result greater than or equal to 126 mg/dLsuggests DIABETES MELLITUS per A.D.A. criteria. Performed By: #### L 500.2500, L100.0100 ####[facility] [address] [place], [address] Potassium [Moles/Vol] 4.5 mmol/L Normal 3.5-5.1 [facility] Comment on above: Performed By: #### L 500.2500, L100.0100 ####[facility] [address] [place], [address] Sodium [Moles/Vol] 144 mmol/L Normal 136-145 [facility] Comment on above: Performed By: #### L 500.2500, L100.0100 ####[facility] [address] [place], [address] Urea nitrogen [Mass/Vol] 93 mg/dL High 7-18 [facility] Comment on above: Performed By: #### L 500.2500, L100.0100 ####[facility] [address] [place], [address] Bedside Glucoseon 11-18-2023 FINGERSTICK GLU 119 mg/dL High 74-106 [facility] Comment on above: Result Comment: MYKE SAGE OF PATIENT CARE PER NURSING PROTOCOL Performed By: #### L 501.080 ####[facility] [address] [place], [address] CBC W/Diff, Automatedon Absolute Lymph 0.99 X10 3/uL Normal 0.83-4.51 [facility] Comment on above: Performed By: #### L 500.2500, L100.0100 ####[facility] [address] [place], [address] Absolute Neut 5.3 X10 3/uL Normal 2.0-7.7 [facility] Comment on above: Performed By: #### L 500.2500, L100.0100 ####[facility] [address] [place], [address] Basophils/100 WBC (Bld) 0.6 % Normal 0-1 [facility] Comment on above: Performed By: #### L 500.2500, L100.0100 ####[facility] [address] [place], [address] Eosinophils/100 WBC (Bld) 4.3 % Normal 0-5 [facility] Comment on above: Performed By: #### L 500.2500, L100.0100 ####[facility] [address] [place], [address] Erythrocyte distribution width (RBC) [Ratio] 14.3 % Normal 11.6-14.6 [facility] Comment on above: Performed By: #### L 500.2500, L100.0100 ####[facility] [address] [place], [address] Hematocrit (Bld) [Volume fraction] 27.2 % Low 40-54 [facility] Comment on above: Performed By: #### L 500.2500, L100.0100 ####[facility] [address] [place], [address] Hemoglobin (Bld) [Mass/Vol] 8.5 g/dL Low 13.0-16.5 [facility] Comment on above: Performed By: #### L 500.2500, L100.0100 ####[facility] [address] [place], [address] IG% 0.400 Normal 0.0-0.9 [facility] Comment on above: Result Comment: IG% - Immature Granulocytes (promyelocytes, myelocytes andmetamyelocytes) > 1% indicates that a LEFT SHIFT is Present. Performed By: #### L 500.2500, L100.0100 ####[facility] [address] [place], [address] Lymphocytes/100 WBC (Bld) 14.1 % Low 19-41 [facility] Comment on above: Performed By: #### L 500.2500, L100.0100 ####[facility] [address] [place], [address] MCH (RBC) [Entitic mass] 30.5 pg Normal 27.0-32.0 [facility] Comment on above: Performed By: #### L 500.2500, L100.0100 ####[facility] [address] [place], [address] MCHC (RBC) [Mass/Vol] 31.3 g/dL Low 32-36 [facility] Comment on above: Performed By: #### L 500.2500, L100.0100 ####[facility] [address] [place], [address] MCV (RBC) [Entitic vol] 97.5 fL High 80-94 [facility] Comment on above: Performed By: #### L 500.2500, L100.0100 ####[facility] [address] [place], [address] Monocytes/100 WBC (Bld) 6.0 % Normal 0-10 [facility] Comment on above: Performed By: #### L 500.2500, L100.0100 ####[facility] [address] [place], [address] Neutrophils/100 WBC (Bld) 74.6 % High 47-70 [facility] Comment on above: Performed By: #### L 500.2500, L100.0100 ####[facility] [address] [place], [address] Nucleated RBC (Bld) [#/Vol] 0 10*3/uL Normal 0-5 [facility] Comment on above: Performed By: #### L 500.2500, L100.0100 ####[facility] [address] [place], [address] Platelet mean volume (Bld) [Entitic vol] 11.2 fL Normal 6.2-12.0 [facility] Comment on above: Performed By: #### L 500.2500, L100.0100 ####[facility] [address] [place], [address] Platelets (Bld) [#/Vol] 116 10*3/uL Low 150-450 [facility] Comment on above: Performed By: #### L 500.2500, L100.0100 ####[facility] [address] [place], [address] RBC (Bld) [#/Vol] 2.79 10*6/uL Low 4.6-6.2 [facility] Comment on above: Performed By: #### L 500.2500, L100.0100 ####[facility] [address] [place], [address] RDW SD 51.0 fl High 35.1-43.9 [facility] Comment on above: Performed By: #### L 500.2500, L100.0100 ####[facility] [address] [place], [address] WBC (Bld) [#/Vol] 7.0 10*3/uL Normal 4.4-11.0 [facility] Comment on above: Performed By: #### L 500.2500, L100.0100 ####[facility] [address] [place], [address] Chest 1 View (Portable)on Chest 1 View (Portable) Normal [facility] D-Dimer Quantitative (DVT/PE )on 11-18-2023 D-DIMER QUANT 0.83 FEU/ug/m Invalid Interpretation Code 0.27-0.49 [facility] Comment on above: Result Comment: D-Di kassidy ELEVATED (>0.49): Additional studies and clinicalassessments are indicated to conclude diagnosis of:Deep Vein Thrombosis (DVT) or Pulmonary Embolism (PE)CRITICAL VALUE VERIFIED. CALLED TO ANGELICA OSEI11/18/23 1448 Nelly Huynh.RESULTS READ BACK BY SAME. Performed By: #### L 300.8000 ####[facility] [address] [place], [address] Emergency Department Summary on 11-18-2023 Emergency Department Summary Normal [facility] H AND P Exam - Hospitaliston 11-18-2023 H&P Exam - Hospitalist Normal [facility] L501.4020on 11-18-2023 TROPONIN-I HS 35 pg/mL Normal 3.0-78.0 [facility] Comment on above: Result Comment: Sara saleh Note: New Test Units and Gender Specific Reference Ranges. For more information see Policy Stat Procedure [place] High Sensitivity Troponin (TNIH) and attachments. Performed By: #### L 501.4020 ####[facility] [address] [place], [address] L501.5425on 11-18-2023 TROPONIN-I HS 32 pg/mL Normal 3.0-78.0 [facility] Comment on above: Order Comment: 1Y Result Comment: Sara saleh Note: New Test Units and Gender Specific Reference Ranges. For more information see Policy Stat Procedure [place] High Sensitivity Troponin (TNIH) and attachments. Performed By: #### L 501.5425 ####[facility] [address] [place], [address] M100.678on 11-18-2023 M100.678 Pending SARS-CoV-2 (COVID 19) Negative INFLUENZA A Negative INFLUENZA B Negative RSV PCR Negative Normal [facility] Comment on above: Performed By: #### M 100.678 ####[facility] [address] [place], [address] RESPIRATORY PANEL MOLECULARo n 11-18-2023 RP PANEL Normal [facility] Comment on above: Performed By: #### M 100.638 ####[facility] [address] [place], [address] Venous Blood Gason 4 Blood Gas Type DAYANA Normal [facility] Comment on above: Performed By: #### L 9000.0810 ####[facility] [address] [place], [address] CO2 [Moles/Vol] 33 mmol/L Normal 23-33 [facility] Comment on above: Performed By: #### L 9000.0810 ####[facility] [address] [place], [address] FI02 4.0 Normal [facility] Comment on above: Performed By: #### L 9000.0810 ####[facility] [address] [place], [address] HCO3 (Bld) [Moles/Vol] 31 mmol/L High 22-26 [facility] Comment on above: Performed By: #### L 9000.0810 ####[facility] [address] [place], [address] O2 Delivery Dev Cannula Normal [facility] Comment on above: Performed By: #### L 9000.0810 ####[facility] [address] [place], [address] SITE Not entered Normal [facility] Comment on above: Performed By: #### L 9000.0810 ####[facility] [address] [place], [address] VBG BE 5 mmol/L High -1.0-3.5 [facility] Comment on above: Performed By: #### L 9000.0810 ####[facility] [address] [place], [address] VBG pCO2 61.5 mmHg High 41-51 [facility] Comment on above: Performed By: #### L 9000.0810 ####[facility] [address] [place], [address] VBG pH 7.31 Low 7.32-7.42 [facility] Comment on above: Performed By: #### L 9000.0810 ####[facility] [address] [place], [address] VBG PO2 50 mmHg High 25-40 [facility] Comment on above: Performed By: #### L 9000.0810 ####[facility] [address] [place], [address] VBG SO2 80 High 50-70 [facility] Comment on above: Performed By: #### L 9000.0810 ####[facility] [address] [place], [address] Basic Metabolic Profile (BMP )on 11-16-2023 BUN/CRE 30.4 RATIO High 10-20 [facility] Comment on above: Performed By: #### L 501.5200, L501.2300, L500.2500, L100.0500 ####[facility] [address] [place], [address] CA,Total 9.4 mg/dL Normal 8.5-10.1 [facility] Comment on above: Performed By: #### L 501.5200, L501.2300, L500.2500, L100.0500 ####[facility] [address] [place], [address] Chloride [Moles/Vol] 106 mmol/L Normal 98-107 [facility] Comment on above: Performed By: #### L 501.5200, L501.2300, L500.2500, L100.0500 ####[facility] [address] [place], [address] CO2 [Moles/Vol] 28.0 mmol/L Normal 21.0-32.0 [facility] Comment on above: Performed By: #### L 501.5200, L501.2300, L500.2500, L100.0500 ####[facility] [address] [place], [address] Creatinine [Mass/Vol] 2.14 mg/dL High 0.70-1.30 [facility] Comment on above: Result Comment: The validity of the calculated GFR GFRAA in patients over70 years has not been determined. Clinical correlation isessential. Performed By: #### L 501.5200, L501.2300, L500.2500, L100.0500 ####[facility] [address] [place], [address] ECRCL 26.04 ml/min Normal [facility] Comment on above: Performed By: #### L 501.5200, L501.2300, L500.2500, L100.0500 ####[facility] [address] [place], [address] EST GFR - AA 38 mL/min Low >60 [facility] Comment on above: Result Comment: Afri can Guyanese GFR Calc Performed By: #### L 501.5200, L501.2300, L500.2500, L100.0500 ####[facility] [address] [place], [address] GAP 7 Normal 5-15 [facility] Comment on above: Performed By: #### L 501.5200, L501.2300, L500.2500, L100.0500 ####[facility] [address] [place], [address] GFR/1.73 sq M.predicted among non-blacks MDRD (S/P/Bld) [Vol rate/Area] 31 mL/min/{1.73_m2} Low >60 [facility] Comment on above: Result Comment: Non- GFR Calc Performed By: #### L 501.5200, L501.2300, L500.2500, L100.0500 ####[facility] [address] [place], [address] Glucose [Mass/Vol] 122 mg/dL High 74-106 [facility] Comment on above: Result Comment: Fast ing Glucose result from 100 to 125 mg/dLsuggests IMPAIRED HOMEOSTASIS per A.D.A. criteria. Performed By: #### L 501.5200, L501.2300, L500.2500, L100.0500 ####[facility] [address] [place], [address] Potassium [Moles/Vol] 4.3 mmol/L Normal 3.5-5.1 [facility] Comment on above: Performed By: #### L 501.5200, L501.2300, L500.2500, L100.0500 ####[facility] [address] [place], [address] Sodium [Moles/Vol] 141 mmol/L Normal 136-145 [facility] Comment on above: Performed By: #### L 501.5200, L501.2300, L500.2500, L100.0500 ####[facility] [address] [place], [address] Urea nitrogen [Mass/Vol] 65 mg/dL High 7-18 [facility] Comment on above: Performed By: #### L 501.5200, L501.2300, L500.2500, L100.0500 ####[facility] [address] [place], [address] Bedside Glucoseon 11-16-2023 FINGERSTICK GLU 176 mg/dL High 74-106 [facility] Comment on above: Result Comment: MYKE GEMENT OF PATIENT CARE PER NURSING PROTOCOL Performed By: #### L 501.080 ####[facility] [address] [place], [address] FINGERSTICK GLU 158 mg/dL High 74-106 [facility] Comment on above: Result Comment: MYKE GEMENT OF PATIENT CARE PER NURSING PROTOCOL Performed By: #### L 501.080 ####[facility] [address] [place], [address] FINGERSTICK GLU 115 mg/dL High 74-106 [facility] Comment on above: Result Comment: MYKE GEMENT OF PATIENT CARE PER NURSING PROTOCOL Performed By: #### L 501.080 ####[facility] [address] [place], [address] FINGERSTICK GLU 151 mg/dL High 74-106 [facility] Comment on above: Result Comment: MYKE GEMENT OF PATIENT CARE PER NURSING PROTOCOL Performed By: #### L 501.080 ####[facility] [address] [place], [address] CBC-Complete Blood Cnt No Di ffon 11-16-2023 Erythrocyte distribution width (RBC) [Ratio] 14.2 % Normal 11.6-14.6 [facility] Comment on above: Performed By: #### L 501.5200, L501.2300, L500.2500, L100.0500 ####[facility] [address] [place], [address] Hematocrit (Bld) [Volume fraction] 28.1 % Low 40-54 [facility] Comment on above: Performed By: #### L 501.5200, L501.2300, L500.2500, L100.0500 ####[facility] [address] [place], [address] Hemoglobin (Bld) [Mass/Vol] 8.8 g/dL Low 13.0-16.5 [facility] Comment on above: Performed By: #### L 501.5200, L501.2300, L500.2500, L100.0500 ####[facility] [address] [place], [address] MCH (RBC) [Entitic mass] 29.9 pg Normal 27.0-32.0 [facility] Comment on above: Performed By: #### L 501.5200, L501.2300, L500.2500, L100.0500 ####[facility] [address] [place], [address] MCHC (RBC) [Mass/Vol] 31.3 g/dL Low 32-36 [facility] Comment on above: Performed By: #### L 501.5200, L501.2300, L500.2500, L100.0500 ####[facility] [address] [place], [address] MCV (RBC) [Entitic vol] 95.6 fL High 80-94 [facility] Comment on above: Performed By: #### L 501.5200, L501.2300, L500.2500, L100.0500 ####[facility] [address] [place], [address] Platelet mean volume (Bld) [Entitic vol] 10.8 fL Normal 6.2-12.0 [facility] Comment on above: Performed By: #### L 501.5200, L501.2300, L500.2500, L100.0500 ####[facility] [address] [place], [address] Platelets (Bld) [#/Vol] 116 10*3/uL Low 150-450 [facility] Comment on above: Performed By: #### L 501.5200, L501.2300, L500.2500, L100.0500 ####[facility] [address] [place], [address] RBC (Bld) [#/Vol] 2.94 10*6/uL Low 4.6-6.2 [facility] Comment on above: Performed By: #### L 501.5200, L501.2300, L500.2500, L100.0500 ####[facility] [address] [place], [address] RDW SD 48.8 fl High 35.1-43.9 [facility] Comment on above: Performed By: #### L 501.5200, L501.2300, L500.2500, L100.0500 ####[facility] [address] [place], [address] WBC (Bld) [#/Vol] 6.3 10*3/uL Normal 4.4-11.0 [facility] Comment on above: Performed By: #### L 501.5200, L501.2300, L500.2500, L100.0500 ####[facility] [address] [place], [address] Lipid Profileon 11-16-2023 CHOL Normal 200 [facility] Comment on above: Result Comment: Canc elled via OM: MD Ordered Performed By: #### L 500.4100 ####[facility] [address] [place], [address] HDL Normal [facility] Comment on above: Result Comment: Canc elled via OM: MD Ordered Performed By: #### L 500.4100 ####[facility] [address] [place], [address] LDL Normal 0-130 [facility] Comment on above: Result Comment: Canc elled via OM: MD Ordered Performed By: #### L 500.4100 ####[facility] [address] [place], [address] TRIG Normal [facility] Comment on above: Result Comment: Canc elled via OM: MD Ordered Performed By: #### L 500.4100 ####[facility] [address] [place], [address] VLDL Normal 5-40 [facility] Comment on above: Result Comment: Canc elled via OM: MD Ordered Performed By: #### L 500.4100 ####[facility] [address] [place], [address] Magnesiumon 11-16-2023 Magnesium [Mass/Vol] 1.8 mg/dL Normal 1.6-2.6 [facility] Comment on above: Performed By: #### L 501.5200, L501.2300, L500.2500, L100.0500 ####[facility] [address] [place], [address] Phosphoruson 11-16-2023 Phosphate [Mass/Vol] 3.2 mg/dL Normal 2.5-4.9 [facility] Comment on above: Performed By: #### L 501.5200, L501.2300, L500.2500, L100.0500 ####[facility] [address] [place], [address] 12 Lead EKGon 11-15-2023 12 Lead EKG Normal [facility] Bedside Glucoseon 11-15-2023 FINGERSTICK GLU 151 mg/dL High 74-106 [facility] Comment on above: Result Comment: MYKE GEMENT OF PATIENT CARE PER NURSING PROTOCOL Performed By: #### L 501.080 ####[facility] [address] [place], [address] FINGERSTICK GLU 164 mg/dL High -106 [facility] Comment on above: Result Comment: MYKE GEMENT OF PATIENT CARE PER NURSING PROTOCOL Performed By: #### L 501.080 ####[facility] [address] [place], [address] FINGERSTICK GLU 113 mg/dL High -106 [facility] Comment on above: Result Comment: MYKE GEMENT OF PATIENT CARE PER NURSING PROTOCOL Performed By: #### L 501.080 ####[facility] [address] [place], [address] FINGERSTICK GLU 173 mg/dL High -106 [facility] Comment on above: Result Comment: MYKE GEMENT OF PATIENT CARE PER NURSING PROTOCOL Performed By: #### L 501.080 ####[facility] [address] [place], [address] CBC W/Diff, Automatedon 0 Absolute Lymph 0.90 X10 3/uL Normal 0.83-4.51 [facility] Comment on above: Performed By: #### L 100.0100, L501.9985, L501.9520, L500.4100, L500.4050 ####[facility] [address] [place], [address] Absolute Neut 5.2 X10 3/uL Normal 2.0-7.7 [facility] Comment on above: Performed By: #### L 100.0100, L501.9985, L501.9520, L500.4100, L500.4050 ####[facility] [address] [place], [address] Basophils/100 WBC (Bld) 0.4 % Normal 0-1 [facility] Comment on above: Performed By: #### L 100.0100, L501.9985, L501.9520, L500.4100, L500.4050 ####[facility] [address] [place], [address] Eosinophils/100 WBC (Bld) 3.2 % Normal 0-5 [facility] Comment on above: Performed By: #### L 100.0100, L501.9985, L501.9520, L500.4100, L500.4050 ####[facility] [address] [place], [address] Erythrocyte distribution width (RBC) [Ratio] 14.0 % Normal 11.6-14.6 [facility] Comment on above: Performed By: #### L 100.0100, L501.9985, L501.9520, L500.4100, L500.4050 ####[facility] [address] [place], [address] Hematocrit (Bld) [Volume fraction] 27.7 % Low 40-54 [facility] Comment on above: Performed By: #### L 100.0100, L501.9985, L501.9520, L500.4100, L500.4050 ####[facility] [address] [place], [address] Hemoglobin (Bld) [Mass/Vol] 8.8 g/dL Low 13.0-16.5 [facility] Comment on above: Performed By: #### L 100.0100, L501.9985, L501.9520, L500.4100, L500.4050 ####[facility] [address] [place], [address] IG% 0.300 Normal 0.0-0.9 [facility] Comment on above: Result Comment: IG% - Immature Granulocytes (promyelocytes, myelocytes andmetamyelocytes) > 1% indicates that a LEFT SHIFT is Present. Performed By: #### L 100.0100, L501.9985, L501.9520, L500.4100, L500.4050 ####[facility] [address] [place], [address] Lymphocytes/100 WBC (Bld) 13.2 % Low 19-41 [facility] Comment on above: Performed By: #### L 100.0100, L501.9985, L501.9520, L500.4100, L500.4050 ####[facility] [address] [place], [address] MCH (RBC) [Entitic mass] 30.7 pg Normal 27.0-32.0 [facility] Comment on above: Performed By: #### L 100.0100, L501.9985, L501.9520, L500.4100, L500.4050 ####[facility] [address] [place], [address] MCHC (RBC) [Mass/Vol] 31.8 g/dL Low 32-36 [facility] Comment on above: Performed By: #### L 100.0100, L501.9985, L501.9520, L500.4100, L500.4050 ####[facility] [address] [place], [address] MCV (RBC) [Entitic vol] 96.5 fL High 80-94 [facility] Comment on above: Performed By: #### L 100.0100, L501.9985, L501.9520, L500.4100, L500.4050 ####[facility] [address] [place], [address] Monocytes/100 WBC (Bld) 6.0 % Normal 0-10 [facility] Comment on above: Performed By: #### L 100.0100, L501.9985, L501.9520, L500.4100, L500.4050 ####[facility] [address] [place], [address] Neutrophils/100 WBC (Bld) 76.9 % High 47-70 [facility] Comment on above: Performed By: #### L 100.0100, L501.9985, L501.9520, L500.4100, L500.4050 ####[facility] [address] [place], [address] Nucleated RBC (Bld) [#/Vol] 0 10*3/uL Normal 0-5 [facility] Comment on above: Performed By: #### L 100.0100, L501.9985, L501.9520, L500.4100, L500.4050 ####[facility] [address] [place], [address] Platelet mean volume (Bld) [Entitic vol] 10.3 fL Normal 6.2-12.0 [facility] Comment on above: Performed By: #### L 100.0100, L501.9985, L501.9520, L500.4100, L500.4050 ####[facility] [address] [place], [address] Platelets (Bld) [#/Vol] 106 10*3/uL Low 150-450 [facility] Comment on above: Performed By: #### L 100.0100, L501.9985, L501.9520, L500.4100, L500.4050 ####[facility] [address] [place], [address] RBC (Bld) [#/Vol] 2.87 10*6/uL Low 4.6-6.2 [facility] Comment on above: Performed By: #### L 100.0100, L501.9985, L501.9520, L500.4100, L500.4050 ####[facility] [address] [place], [address] RDW SD 48.1 fl High 35.1-43.9 [facility] Comment on above: Performed By: #### L 100.0100, L501.9985, L501.9520, L500.4100, L500.4050 ####[facility] [address] [place], [address] WBC (Bld) [#/Vol] 6.8 10*3/uL Normal 4.4-11.0 [facility] Comment on above: Performed By: #### L 100.0100, L501.9985, L501.9520, L500.4100, L500.4050 ####[facility] [address] [place], [address] Chest 1 View (Portable)on Chest 1 View (Portable) Normal [facility] Comprehensive Metabolic Prof ilon 11-15-2023 Albumin [Mass/Vol] 3.2 g/dL Normal 3.2-5.0 [facility] Comment on above: Performed By: #### L 100.0100, L501.9985, L501.9520, L500.4100, L500.4050 ####[facility] [address] [place], [address] Albumin/Globulin [Mass ratio] 0.9 {ratio} Normal 0.9-2.4 [facility] Comment on above: Performed By: #### L 100.0100, L501.9985, L501.9520, L500.4100, L500.4050 ####[facility] [address] [place], [address] ALK P 79 U/L Normal 45-117 [facility] Comment on above: Performed By: #### L 100.0100, L501.9985, L501.9520, L500.4100, L500.4050 ####[facility] [address] [place], [address] ALT [Catalytic activity/Vol] 14 U/L Low 16-61 [facility] Comment on above: Performed By: #### L 100.0100, L501.9985, L501.9520, L500.4100, L500.4050 ####[facility] [address] [place], [address] AST [Catalytic activity/Vol] 10 U/L Low 15-37 [facility] Comment on above: Performed By: #### L 100.0100, L501.9985, L501.9520, L500.4100, L500.4050 ####[facility] [address] [place], [address] Bilirubin [Mass/Vol] 0.50 mg/dL Normal 0.20-1.00 [facility] Comment on above: Result Comment: For patients on eltrombopag therapy, use of Dimension [place] TBIL is not recommended. Performed By: #### L 100.0100, L501.9985, L501.9520, L500.4100, L500.4050 ####[facility] [address] [place], [address] BUN/CRE 26.5 RATIO High 10-20 [facility] Comment on above: Performed By: #### L 100.0100, L501.9985, L501.9520, L500.4100, L500.4050 ####[facility] [address] [place], [address] CA,Total 8.9 mg/dL Normal 8.5-10.1 [facility] Comment on above: Performed By: #### L 100.0100, L501.9985, L501.9520, L500.4100, L500.4050 ####[facility] [address] [place], [address] Chloride [Moles/Vol] 109 mmol/L High 98-107 [facility] Comment on above: Performed By: #### L 100.0100, L501.9985, L501.9520, L500.4100, L500.4050 ####[facility] [address] [place], [address] CO2 [Moles/Vol] 30.0 mmol/L Normal 21.0-32.0 [facility] Comment on above: Performed By: #### L 100.0100, L501.9985, L501.9520, L500.4100, L500.4050 ####[facility] [address] [place], [address] Creatinine [Mass/Vol] 2.26 mg/dL High 0.70-1.30 [facility] Comment on above: Result Comment: The validity of the calculated GFR GFRAA in patients over70 years has not been determined. Clinical correlation isessential. Performed By: #### L 100.0100, L501.9985, L501.9520, L500.4100, L500.4050 ####[facility] [address] [place], [address] ECRCL 24.77 ml/min Normal [facility] Comment on above: Performed By: #### L 100.0100, L501.9985, L501.9520, L500.4100, L500.4050 ####[facility] [address] [place], [address] EST GFR - AA 36 mL/min Low >60 [facility] Comment on above: Result Comment: Afri can Guyanese GFR Calc Performed By: #### L 100.0100, L501.9985, L501.9520, L500.4100, L500.4050 ####[facility] [address] [place], [address] GAP 4 Low 5-15 [facility] Comment on above: Performed By: #### L 100.0100, L501.9985, L501.9520, L500.4100, L500.4050 ####[facility] [address] [place], [address] GFR/1.73 sq M.predicted among non-blacks MDRD (S/P/Bld) [Vol rate/Area] 30 mL/min/{1.73_m2} Low >60 [facility] Comment on above: Result Comment: Non- GFR Calc Performed By: #### L 100.0100, L501.9985, L501.9520, L500.4100, L500.4050 ####[facility] [address] [place], [address] Globulin (S) [Mass/Vol] 3.6 g/dL Normal 2.2-4.2 [facility] Comment on above: Performed By: #### L 100.0100, L501.9985, L501.9520, L500.4100, L500.4050 ####[facility] [address] [place], [address] Glucose [Mass/Vol] 174 mg/dL High 74-106 [facility] Comment on above: Result Comment: Fast ing Glucose result greater than or equal to 126 mg/dLsuggests DIABETES MELLITUS per A.D.A. criteria. Performed By: #### L 100.0100, L501.9985, L501.9520, L500.4100, L500.4050 ####[facility] [address] [place], [address] Potassium [Moles/Vol] 4.6 mmol/L Normal 3.5-5.1 [facility] Comment on above: Performed By: #### L 100.0100, L501.9985, L501.9520, L500.4100, L500.4050 ####[facility] [address] [place], [address] Sodium [Moles/Vol] 143 mmol/L Normal 136-145 [facility] Comment on above: Performed By: #### L 100.0100, L501.9985, L501.9520, L500.4100, L500.4050 ####[facility] [address] [place], [address] T PROT 6.8 g/dL Normal 6.4-8.2 [facility] Comment on above: Performed By: #### L 100.0100, L501.9985, L501.9520, L500.4100, L500.4050 ####[facility] [address] [place], [address] Urea nitrogen [Mass/Vol] 60 mg/dL High 7-18 [facility] Comment on above: Performed By: #### L 100.0100, L501.9985, L501.9520, L500.4100, L500.4050 ####[facility] [address] [place], [address] Echo Complete W/ Contraston 11-15-2023 Echo Complete W/ Contrast Normal [facility] Hemoglobin A1con 11-15-2023 HbA1c (Bld) [Mass fraction] 5.7 % High 3.8-5.6 [facility] Comment on above: Result Comment: Norm al < 5.7 % Prediabetic 5.7 - 6.4 % Diabetic >or= 6.5 % Please note range changes. Performed By: #### L 100.0100, L501.9985, L501.9520, L500.4100, L500.4050 ####[facility] [address] [place], [address] L501.4020on 11-15-2023 TROPONIN-I HS 150 pg/mL Invalid Interpretation Code 3.0-78.0 [facility] Comment on above: Order Comment: 'TROP ' Serial specimen #1, #2 or #3: 3 Result Comment: Crit ical Result(s) Called at: 05:09:09 11/15/2023 by: Santa. VADIM AN RN PCU. Results read back by same. Please Note: New Test Units and Gender Specific Reference Ranges. For more information see Policy Stat Procedure [place] High Sensitivity Troponin (TNIH) and attachments. Performed By: #### L 501.4020 ####[facility] [address] [place], [address] TROPONIN-I HS 119 pg/mL High 3.0-78.0 [facility] Comment on above: Order Comment: 'TROP ' Serial specimen #1, #2 or #3: 2 Result Comment: Plea Note: New Test Units and Gender Specific Reference Ranges. For more information see Policy Stat Procedure [place] High Sensitivity Troponin (TNIH) and attachments. Performed By: #### L 501.4020 ####[facility] [address] [place], [address] Lipid Profileon 11-15-2023 Cholesterol [Mass/Vol] 170 mg/dL Normal 200 [facility] Comment on above: Result Comment: <200 mg/dL Desirable 200-240 mg/dL Borderline >240 mg/dL High Risk Performed By: #### L 100.0100, L501.9985, L501.9520, L500.4100, L500.4050 ####[facility] [address] [place], [address] Cholesterol in HDL [Mass/Vol] 36 mg/dL Low [facility] Comment on above: Result Comment: The drugs N-Acetylcysteine and Metamizole may falselydepress this assay. Reference Range HDL <40 mg/dL Low HDL Cholesterol HDL >or= 60 mg/dL High HDL Cholesterol Performed By: #### L 100.0100, L501.9985, L501.9520, L500.4100, L500.4050 ####[facility] [address] [place], [address] Cholesterol in LDL [Mass/Vol] 101 mg/dL Normal 0-130 [facility] Comment on above: Performed By: #### L 100.0100, L501.9985, L501.9520, L500.4100, L500.4050 ####[facility] [address] [place], [address] Cholesterol in VLDL [Mass/Vol] 33 mg/dL Normal 5-40 [facility] Comment on above: Performed By: #### L 100.0100, L501.9985, L501.9520, L500.4100, L500.4050 ####[facility] [address] [place], [address] Triglyceride [Mass/Vol] 163 mg/dL Normal [facility] Comment on above: Result Comment: The drugs N-Acetylcysteine and Metamizole may falselydepress this assay.Serum Triglycerides Reference Interval Normal <150 mg/dL Borderline high 150 - 199 mg/dL High 200 - 499 mg/dL Very High > or = 500 mg/dL Performed By: #### L 100.0100, L501.9985, L501.9520, L500.4100, L500.4050 ####[facility] [address] [place], [address] Magnesiumon 11-15-2023 Magnesium [Mass/Vol] 1.8 mg/dL Normal 1.6-2.6 [facility] Comment on above: Order Comment: Comme nts: may add to ED labs Performed By: #### L 692.8436, L501.5200 ####[facility] [address] [place], [address] Procalcitoninon 11-15-2023 Procalcitonin 0.16 ng/mL High 0.00-0.09 [facility] Comment on above: Result Comment: A pr ocalcitonin (PCT) level above 2.0 ng/mL on the first day of ICU admission is associated with a high risk for progression to severe sepsis and/or septic shock. A PCT level below 0.5 ng/mL on the first day of ICU admission is associated with a low risk for progression to severe and/or septic shock. Note: Concentrations <0.5 ng/mL do not exclude an infection on account of localized infections (without systemic signs) which can be associated with such low concentrations, or a systemic infection in its initial stages (<6 hours). Furthermore, increased procalcitonin can occur without infection. PCT concentrations between 0.5 and 2.0 ng/mL should be interpreted taking into account the patient's history. It is recommended to retest PCT within 6-24 hours if any concentrations <2 ng/mL are obtained. Performed By: #### L 509.7000, L501.5200 ####[facility] [address] [place], [address] Thyroid Stim Hormone (TSH)on 11-15-2023 TSH 2.800 uIU/mL Normal 0.358-3.740 [facility] Comment on above: Performed By: #### L 100.0100, L501.9985, L501.9520, L500.4100, L500.4050 ####[facility] [address] [place], [address] 12 Lead EKGon 11-14-2023 12 Lead EKG Normal [facility] BNP,B-Type NATRIURETIC PEPTI Nico 11-14-2023 Natriuretic peptide B (Bld) [Mass/Vol] 362.0 pg/mL High 0-100 [facility] Comment on above: Performed By: #### L 500.4050, L503.6620, L100.0100, L501.4020 ####[facility] [address] [place], [address] CBC W/Diff, Automatedon 09-0 4-4 Absolute Lymph 1.19 X10 3/uL Normal 0.83-4.51 [facility] Comment on above: Performed By: #### L 500.4050, L503.6620, L100.0100, L501.4020 ####[facility] [address] [place], [address] Absolute Neut 3.7 X10 3/uL Normal 2.0-7.7 [facility] Comment on above: Performed By: #### L 500.4050, L503.6620, L100.0100, L501.4020 ####[facility] [address] [place], [address] Basophils/100 WBC (Bld) 0.7 % Normal 0-1 [facility] Comment on above: Performed By: #### L 500.4050, L503.6620, L100.0100, L501.4020 ####[facility] [address] [place], [address] Eosinophils/100 WBC (Bld) 4.5 % Normal 0-5 [facility] Comment on above: Performed By: #### L 500.4050, L503.6620, L100.0100, L501.4020 ####[facility] [address] [place], [address] Erythrocyte distribution width (RBC) [Ratio] 14.0 % Normal 11.6-14.6 [facility] Comment on above: Performed By: #### L 500.4050, L503.6620, L100.0100, L501.4020 ####[facility] [address] [place], [address] Hematocrit (Bld) [Volume fraction] 26.7 % Low 40-54 [facility] Comment on above: Performed By: #### L 500.4050, L503.6620, L100.0100, L501.4020 ####[facility] [address] [place], [address] Hemoglobin (Bld) [Mass/Vol] 8.2 g/dL Low 13.0-16.5 [facility] Comment on above: Performed By: #### L 500.4050, L503.6620, L100.0100, L501.4020 ####[facility] [address] [place], [address] IG% 0.300 Normal 0.0-0.9 [facility] Comment on above: Result Comment: IG% - Immature Granulocytes (promyelocytes, myelocytes andmetamyelocytes) > 1% indicates that a LEFT SHIFT is Present. Performed By: #### L 500.4050, L503.6620, L100.0100, L501.4020 ####[facility] [address] [place], [address] Lymphocytes/100 WBC (Bld) 20.7 % Normal 19-41 [facility] Comment on above: Performed By: #### L 500.4050, L503.6620, L100.0100, L501.4020 ####[facility] [address] [place], [address] MCH (RBC) [Entitic mass] 29.4 pg Normal 27.0-32.0 [facility] Comment on above: Performed By: #### L 500.4050, L503.6620, L100.0100, L501.4020 ####[facility] [address] [place], [address] MCHC (RBC) [Mass/Vol] 30.7 g/dL Low 32-36 [facility] Comment on above: Performed By: #### L 500.4050, L503.6620, L100.0100, L501.4020 ####[facility] [address] [place], [address] MCV (RBC) [Entitic vol] 95.7 fL High 80-94 [facility] Comment on above: Performed By: #### L 500.4050, L503.6620, L100.0100, L501.4020 ####[facility] [address] [place], [address] Monocytes/100 WBC (Bld) 9.2 % Normal 0-10 [facility] Comment on above: Performed By: #### L 500.4050, L503.6620, L100.0100, L501.4020 ####[facility] [address] [place], [address] Neutrophils/100 WBC (Bld) 64.6 % Normal 47-70 [facility] Comment on above: Performed By: #### L 500.4050, L503.6620, L100.0100, L501.4020 ####[facility] [address] [place], [address] Nucleated RBC (Bld) [#/Vol] 0 10*3/uL Normal 0-5 [facility] Comment on above: Performed By: #### L 500.4050, L503.6620, L100.0100, L501.4020 ####[facility] [address] [place], [address] Platelet mean volume (Bld) [Entitic vol] 10.9 fL Normal 6.2-12.0 [facility] Comment on above: Performed By: #### L 500.4050, L503.6620, L100.0100, L501.4020 ####[facility] [address] [place], [address] Platelets (Bld) [#/Vol] 115 10*3/uL Low 150-450 [facility] Comment on above: Performed By: #### L 500.4050, L503.6620, L100.0100, L501.4020 ####[facility] [address] [place], [address] RBC (Bld) [#/Vol] 2.79 10*6/uL Low 4.6-6.2 [facility] Comment on above: Performed By: #### L 500.4050, L503.6620, L100.0100, L501.4020 ####[facility] [address] [place], [address] RDW SD 48.0 fl High 35.1-43.9 [facility] Comment on above: Performed By: #### L 500.4050, L503.6620, L100.0100, L501.4020 ####[facility] [address] [place], [address] WBC (Bld) [#/Vol] 5.7 10*3/uL Normal 4.4-11.0 [facility] Comment on above: Performed By: #### L 500.4050, L503.6620, L100.0100, L501.4020 ####[facility] [address] [place], [address] Chest 1 View (Portable)on Chest 1 View (Portable) Normal [facility] Comprehensive Metabolic Prof ilon 11-14-2023 Albumin [Mass/Vol] 3.1 g/dL Low 3.2-5.0 [facility] Comment on above: Order Comment: 'TROP ' Serial specimen #1, #2 or #3: 1 Performed By: #### L 500.4050, L503.6620, L100.0100, L501.4020 ####[facility] [address] [place], [address] Albumin/Globulin [Mass ratio] 0.9 {ratio} Normal 0.9-2.4 [facility] Comment on above: Order Comment: 'TROP ' Serial specimen #1, #2 or #3: 1 Performed By: #### L 500.4050, L503.6620, L100.0100, L501.4020 ####[facility] [address] [place], [address] ALK P 80 U/L Normal 45-117 [facility] Comment on above: Order Comment: 'TROP ' Serial specimen #1, #2 or #3: 1 Performed By: #### L 500.4050, L503.6620, L100.0100, L501.4020 ####[facility] [address] [place], [address] ALT [Catalytic activity/Vol] 17 U/L Normal 16-61 [facility] Comment on above: Order Comment: 'TROP ' Serial specimen #1, #2 or #3: 1 Performed By: #### L 500.4050, L503.6620, L100.0100, L501.4020 ####[facility] [address] [place], [address] AST [Catalytic activity/Vol] 9 U/L Low 15-37 [facility] Comment on above: Order Comment: 'TROP ' Serial specimen #1, #2 or #3: 1 Performed By: #### L 500.4050, L503.6620, L100.0100, L501.4020 ####[facility] [address] [place], [address] Bilirubin [Mass/Vol] 0.60 mg/dL Normal 0.20-1.00 [facility] Comment on above: Order Comment: 'TROP ' Serial specimen #1, #2 or #3: 1 Result Comment: For patients on eltrombopag therapy, use of Dimension [place] TBIL is not recommended. Performed By: #### L 500.4050, L503.6620, L100.0100, L501.4020 ####[facility] [address] [place], [address] BUN/CRE 24.1 RATIO High 10-20 [facility] Comment on above: Order Comment: 'TROP ' Serial specimen #1, #2 or #3: 1 Performed By: #### L 500.4050, L503.6620, L100.0100, L501.4020 ####[facility] [address] [place], [address] CA,Total 9.0 mg/dL Normal 8.5-10.1 [facility] Comment on above: Order Comment: 'TROP ' Serial specimen #1, #2 or #3: 1 Performed By: #### L 500.4050, L503.6620, L100.0100, L501.4020 ####[facility] [address] [place], [address] Chloride [Moles/Vol] 112 mmol/L High 98-107 [facility] Comment on above: Order Comment: 'TROP ' Serial specimen #1, #2 or #3: 1 Performed By: #### L 500.4050, L503.6620, L100.0100, L501.4020 ####[facility] [address] [place], [address] CO2 [Moles/Vol] 28.0 mmol/L Normal 21.0-32.0 [facility] Comment on above: Order Comment: 'TROP ' Serial specimen #1, #2 or #3: 1 Performed By: #### L 500.4050, L503.6620, L100.0100, L501.4020 ####[facility] [address] [place], [address] Creatinine [Mass/Vol] 2.41 mg/dL High 0.70-1.30 [facility] Comment on above: Order Comment: 'TROP ' Serial specimen #1, #2 or #3: 1 Result Comment: The validity of the calculated GFR GFRAA in patients over70 years has not been determined. Clinical correlation isessential. Performed By: #### L 500.4050, L503.6620, L100.0100, L501.4020 ####[facility] [address] [place], [address] EST GFR - AA 33 mL/min Low >60 [facility] Comment on above: Order Comment: 'TROP ' Serial specimen #1, #2 or #3: 1 Result Comment: Afri can Guyanese GFR Calc Performed By: #### L 500.4050, L503.6620, L100.0100, L501.4020 ####[facility] [address] [place], [address] GAP 5 Normal 5-15 [facility] Comment on above: Order Comment: 'TROP ' Serial specimen #1, #2 or #3: 1 Performed By: #### L 500.4050, L503.6620, L100.0100, L501.4020 ####[facility] [address] [place], [address] GFR/1.73 sq M.predicted among non-blacks MDRD (S/P/Bld) [Vol rate/Area] 27 mL/min/{1.73_m2} Low >60 [facility] Comment on above: Order Comment: 'TROP ' Serial specimen #1, #2 or #3: 1 Result Comment: Non- GFR Calc Performed By: #### L 500.4050, L503.6620, L100.0100, L501.4020 ####[facility] [address] [place], [address] Globulin (S) [Mass/Vol] 3.6 g/dL Normal 2.2-4.2 [facility] Comment on above: Order Comment: 'TROP ' Serial specimen #1, #2 or #3: 1 Performed By: #### L 500.4050, L503.6620, L100.0100, L501.4020 ####[facility] [address] [place], [address] Glucose [Mass/Vol] 87 mg/dL Normal 74-106 [facility] Comment on above: Order Comment: 'TROP ' Serial specimen #1, #2 or #3: 1 Performed By: #### L 500.4050, L503.6620, L100.0100, L501.4020 ####[facility] [address] [place], [address] Potassium [Moles/Vol] 4.8 mmol/L Normal 3.5-5.1 [facility] Comment on above: Order Comment: 'TROP ' Serial specimen #1, #2 or #3: 1 Performed By: #### L 500.4050, L503.6620, L100.0100, L501.4020 ####[facility] [address] [place], [address] Sodium [Moles/Vol] 145 mmol/L Normal 136-145 [facility] Comment on above: Order Comment: 'TROP ' Serial specimen #1, #2 or #3: 1 Performed By: #### L 500.4050, L503.6620, L100.0100, L501.4020 ####[facility] [address] [place], [address] T PROT 6.7 g/dL Normal 6.4-8.2 [facility] Comment on above: Order Comment: 'TROP ' Serial specimen #1, #2 or #3: 1 Performed By: #### L 500.4050, L503.6620, L100.0100, L501.4020 ####[facility] [address] [place], [address] Urea nitrogen [Mass/Vol] 58 mg/dL High 7-18 [facility] Comment on above: Order Comment: 'TROP ' Serial specimen #1, #2 or #3: 1 Performed By: #### L 500.4050, L503.6620, L100.0100, L501.4020 ####[facility] [address] [place], [address] Emergency Department Summary on 11-14-2023 Emergency Department Summary Normal [facility] H AND P Exam - Hospitaliston 11-14-2023 H&P Exam - Hospitalist Normal [facility] L501.4020on 11-14-2023 TROPONIN-I HS 123 pg/mL Invalid Interpretation Code 3.0-78.0 [facility] Comment on above: Order Comment: 'TROP ' Serial specimen #1, #2 or #3: 1 Result Comment: Sara saleh Note: New Test Units and Gender Specific Reference Ranges. For more information see Policy Stat Procedure [place] High Sensitivity Troponin (TNIH) and attachments. Performed By: #### L 500.4050, L503.6620, L100.0100, L501.4020 ####[facility] [address] [place], [address] CBC W/Diff, Automatedon 10-11 Absolute Lymph 1.30 X10 3/uL Normal 0.83-4.51 [facility] Comment on above: Performed By: #### L 100.0100, L500.4050, L500.4100, L501.9985 ####[facility] [address] [place], [address] Absolute Neut 4.8 X10 3/uL Normal 2.0-7.7 [facility] Comment on above: Performed By: #### L 100.0100, L500.4050, L500.4100, L501.9985 ####[facility] [address] [place], [address] Basophils/100 WBC (Bld) 0.4 % Normal 0-1 [facility] Comment on above: Performed By: #### L 100.0100, L500.4050, L500.4100, L501.9985 ####[facility] [address] [place], [address] Eosinophils/100 WBC (Bld) 4.6 % Normal 0-5 [facility] Comment on above: Performed By: #### L 100.0100, L500.4050, L500.4100, L501.9985 ####[facility] [address] [place], [address] Erythrocyte distribution width (RBC) [Ratio] 13.0 % Normal 11.6-14.6 [facility] Comment on above: Performed By: #### L 100.0100, L500.4050, L500.4100, L501.9985 ####[facility] [address] [place], [address] Hematocrit (Bld) [Volume fraction] 27.3 % Low 40-54 [facility] Comment on above: Performed By: #### L 100.0100, L500.4050, L500.4100, L501.9985 ####[facility] [address] [place], [address] Hemoglobin (Bld) [Mass/Vol] 8.5 g/dL Low 13.0-16.5 [facility] Comment on above: Performed By: #### L 100.0100, L500.4050, L500.4100, L501.9985 ####[facility] [address] [place], [address] IG% 0.600 Normal 0.0-0.9 [facility] Comment on above: Result Comment: IG% - Immature Granulocytes (promyelocytes, myelocytes andmetamyelocytes) > 1% indicates that a LEFT SHIFT is Present. Performed By: #### L 100.0100, L500.4050, L500.4100, L501.9985 ####[facility] [address] [place], [address] Lymphocytes/100 WBC (Bld) 18.7 % Low 19-41 [facility] Comment on above: Performed By: #### L 100.0100, L500.4050, L500.4100, L501.9985 ####[facility] [address] [place], [address] MCH (RBC) [Entitic mass] 29.3 pg Normal 27.0-32.0 [facility] Comment on above: Performed By: #### L 100.0100, L500.4050, L500.4100, L501.9985 ####[facility] [address] [place], [address] MCHC (RBC) [Mass/Vol] 31.1 g/dL Low 32-36 [facility] Comment on above: Performed By: #### L 100.0100, L500.4050, L500.4100, L501.9985 ####[facility] [address] [place], [address] MCV (RBC) [Entitic vol] 94.1 fL High 80-94 [facility] Comment on above: Performed By: #### L 100.0100, L500.4050, L500.4100, L501.9985 ####[facility] [address] [place], [address] Monocytes/100 WBC (Bld) 7.2 % Normal 0-10 [facility] Comment on above: Performed By: #### L 100.0100, L500.4050, L500.4100, L501.9985 ####[facility] [address] [place], [address] Neutrophils/100 WBC (Bld) 68.5 % Normal 47-70 [facility] Comment on above: Performed By: #### L 100.0100, L500.4050, L500.4100, L501.9985 ####[facility] [address] [place], [address] Nucleated RBC (Bld) [#/Vol] 0 10*3/uL Normal 0-5 [facility] Comment on above: Performed By: #### L 100.0100, L500.4050, L500.4100, L501.9985 ####[facility] [address] [place], [address] Platelet mean volume (Bld) [Entitic vol] 11.5 fL Normal 6.2-12.0 [facility] Comment on above: Performed By: #### L 100.0100, L500.4050, L500.4100, L501.9985 ####[facility] [address] [place], [address] Platelets (Bld) [#/Vol] 116 10*3/uL Low 150-450 [facility] Comment on above: Performed By: #### L 100.0100, L500.4050, L500.4100, L501.9985 ####[facility] [address] [place], [address] RBC (Bld) [#/Vol] 2.90 10*6/uL Low 4.6-6.2 [facility] Comment on above: Performed By: #### L 100.0100, L500.4050, L500.4100, L501.9985 ####[facility] [address] [place], [address] RDW SD 44.3 fl High 35.1-43.9 [facility] Comment on above: Performed By: #### L 100.0100, L500.4050, L500.4100, [id number] ####[facility] [address] [place], [address] WBC (Bld) [#/Vol] 7.0 10*3/uL Normal 4.4-11.0 [facility] Comment on above: Performed By: #### L 100.0100, L500.4050, L500.4100, L501.9985 ####[facility] [address] [place], [address] Comprehensive Metabolic [facility] ilon 11-07-2023 Albumin [Mass/Vol] 3.1 g/dL Low 3.2-5.0 [facility] Comment on above: Performed By: #### L 100.0100, L500.4050, L500.4100, L501.9985 ####[facility] [address] [place], [address] Albumin/Globulin [Mass ratio] 0.9 {ratio} Normal 0.9-2.4 [facility] Comment on above: Performed By: #### L 100.0100, L500.4050, L500.4100, L501.9985 ####[facility] [address] [place], [address] ALK P 70 U/L Normal 45-117 [facility] Comment on above: Performed By: #### L 100.0100, L500.4050, L500.4100, L501.9985 ####[facility] [address] [place], [address] ALT [Catalytic activity/Vol] 10 U/L Low 16-61 [facility] Comment on above: Performed By: #### L 100.0100, L500.4050, L500.4100, L501.9985 ####[facility] [address] [place], [address] AST [Catalytic activity/Vol] 15 U/L Normal 15-37 [facility] Comment on above: Performed By: #### L 100.0100, L500.4050, L500.4100, L501.9985 ####[facility] [address] [place], [address] Bilirubin [Mass/Vol] 0.40 mg/dL Normal 0.20-1.00 [facility] Comment on above: Result Comment: For patients on eltrombopag therapy, use of Dimension [place] TBIL is not recommended. Performed By: #### L 100.0100, L500.4050, L500.4100, L501.9985 ####[facility] [address] [place], [address] BUN/CRE 29.8 RATIO High 10-20 [facility] Comment on above: Performed By: #### L 100.0100, L500.4050, L500.4100, L501.9985 ####[facility] [address] [place], [address] CA,Total 8.5 mg/dL Normal 8.5-10.1 [facility] Comment on above: Performed By: #### L 100.0100, L500.4050, L500.4100, L501.9985 ####[facility] [address] [place], [address] Chloride [Moles/Vol] 110 mmol/L High 98-107 [facility] Comment on above: Performed By: #### L 100.0100, L500.4050, L500.4100, L501.9985 ####[facility] [address] [place], [address] CO2 [Moles/Vol] 27.0 mmol/L Normal 21.0-32.0 [facility] Comment on above: Performed By: #### L 100.0100, L500.4050, L500.4100, L501.9985 ####[facility] [address] [place], [address] Creatinine [Mass/Vol] 1.98 mg/dL High 0.70-1.30 [facility] Comment on above: Result Comment: The validity of the calculated GFR GFRAA in patients over70 years has not been determined. Clinical correlation isessential. Performed By: #### L 100.0100, L500.4050, L500.4100, L501.9985 ####[facility] [address] [place], [address] EST GFR - AA 42 mL/min Low >60 [facility] Comment on above: Result Comment: Afri can Guyanese GFR Calc Performed By: #### L 100.0100, L500.4050, L500.4100, L501.9985 ####[facility] [address] [place], [address] GAP 8 Normal 5-15 [facility] Comment on above: Performed By: #### L 100.0100, L500.4050, L500.4100, L501.9985 ####[facility] [address] [place], [address] GFR/1.73 sq M.predicted among non-blacks MDRD (S/P/Bld) [Vol rate/Area] 34 mL/min/{1.73_m2} Low >60 [facility] Comment on above: Result Comment: Non- GFR Calc Performed By: #### L 100.0100, L500.4050, L500.4100, L501.9985 ####[facility] [address] [place], [address] Globulin (S) [Mass/Vol] 3.6 g/dL Normal 2.2-4.2 [facility] Comment on above: Performed By: #### L 100.0100, L500.4050, L500.4100, L501.9985 ####[facility] [address] [place], [address] Glucose [Mass/Vol] 133 mg/dL High 74-106 [facility] Comment on above: Result Comment: Fast ing Glucose result greater than or equal to 126 mg/dLsuggests DIABETES MELLITUS per A.D.A. criteria. Performed By: #### L 100.0100, L500.4050, L500.4100, L501.9985 ####[facility] [address] [place], [address] Potassium [Moles/Vol] 4.5 mmol/L Normal 3.5-5.1 [facility] Comment on above: Performed By: #### L 100.0100, L500.4050, L500.4100, L501.9985 ####[facility] [address] [place], [address] Sodium [Moles/Vol] 145 mmol/L Normal 136-145 [facility] Comment on above: Performed By: #### L 100.0100, L500.4050, L500.4100, L501.9985 ####[facility] [address] [place], [address] T PROT 6.7 g/dL Normal 6.4-8.2 [facility] Comment on above: Performed By: #### L 100.0100, L500.4050, L500.4100, L501.9985 ####[facility] [address] [place], [address] Urea nitrogen [Mass/Vol] 59 mg/dL High 7-18 [facility] Comment on above: Performed By: #### L 100.0100, L500.4050, L500.4100, L501.9985 ####[facility] [address] [place], [address] Hemoglobin A1con 11-07-2023 HbA1c (Bld) [Mass fraction] 6.0 % High 3.8-5.6 [facility] Comment on above: Result Comment: Norm al < 5.7 % Prediabetic 5.7 - 6.4 % Diabetic >or= 6.5 % Please note range changes. Performed By: #### L 100.0100, L500.4050, L500.4100, L501.9985 ####[facility] [address] [place], [address] Lipid Profileon 11-07-2023 Cholesterol [Mass/Vol] 151 mg/dL Normal 200 [facility] Comment on above: Result Comment: <200 mg/dL Desirable 200-240 mg/dL Borderline >240 mg/dL High Risk Performed By: #### L 100.0100, L500.4050, L500.4100, L501.9985 ####[facility] [address] [place], [address] Cholesterol in HDL [Mass/Vol] 36 mg/dL Low [facility] Comment on above: Result Comment: The drugs N-Acetylcysteine and Metamizole may falselydepress this assay. Reference Range HDL <40 mg/dL Low HDL Cholesterol HDL >or= 60 mg/dL High HDL Cholesterol Performed By: #### L 100.0100, L500.4050, L500.4100, L501.9985 ####[facility] [address] [place], [address] Cholesterol in LDL [Mass/Vol] 90 mg/dL Normal 0-130 [facility] Comment on above: Performed By: #### L 100.0100, L500.4050, L500.4100, L501.9985 ####[facility] [address] [place], [address] Cholesterol in VLDL [Mass/Vol] 25 mg/dL Normal 5-40 [facility] Comment on above: Performed By: #### L 100.0100, L500.4050, L500.4100, L501.9985 ####[facility] [address] [place], [address] Triglyceride [Mass/Vol] 127 mg/dL Normal [facility] Comment on above: Result Comment: The drugs N-Acetylcysteine and Metamizole may falselydepress this assay.Serum Triglycerides Reference Interval Normal <150 mg/dL Borderline high 150 - 199 mg/dL High 200 - 499 mg/dL Very High > or = 500 mg/dL Performed By: #### L 100.0100, L500.4050, L500.4100, L501.9985 ####[facility] [address] [place], [address] .Auto Diffon 08-17-2023 Basophil, Absolute 0.0 10 3/mcL Normal 0.0-0.2 [facility] ([place]) Comment on above: Performed By: #### B 12 ####[place] [address]#### TSH, PBNP, CMP, ANEU, ADIFF, CBC, GFR, FE ####[address]atie[address]ac [address] [place], [place] [address] Basophils/100 WBC (Bld) 0.6 % Normal 0.0-2.5 A [facility] ([place]) Comment on above: Performed By: #### B 12 ####[place] [address]#### TSH, PBNP, CMP, ANEU, ADIFF, CBC, GFR, FE ####Katielilibeth [address] [place], [place] [address] Eosinophil, Absolute 0.2 10 3/mcL Normal 0.0-0.4 [facility] ([place]) Comment on above: Performed By: #### B 12 ####[place] [address]#### TSH, PBNP, CMP, ANEU, ADIFF, CBC, GFR, FE ####Katie [address] [place], [place] [address] Eosinophils/100 WBC (Bld) 3.1 % Normal 0.0-7.0 [facility] ([place]) Comment on above: Performed By: #### B 12 ####[place] [address]#### TSH, PBNP, CMP, ANEU, ADIFF, CBC, GFR, FE ####[address] [address] Lymphocyte, Absolute 1.1 10 3/mcL Normal 0.8-3.9 [facility] ([place]) Comment on above: Performed By: #### B 12 ####[place] [address]#### TSH, PBNP, CMP, ANEU, ADIFF, CBC, GFR, FE ####Katie [address] [place], [place] [address] Lymphocytes/100 WBC (Bld) 20.8 % Normal 10.0-50.0 [facility] ([place]) Comment on above: Performed By: #### B 12 ####[place] [address]#### TSH, PBNP, CMP, ANEU, ADIFF, CBC, GFR, FE ####[place] [address] [place], [place] [address] Monocyte, Absolute 0.4 10 3/mcL Normal 0.2-1.0 [facility] ([place]) Comment on above: Performed By: #### B 12 ####[place] [address]#### TSH, PBNP, CMP, ANEU, ADIFF, CBC, GFR, FE ####[place] [address] [place], [place] [address] Monocytes/100 WBC (Bld) 6.9 % Normal 1.7-13.0 [facility] ([place]) Comment on above: Performed By: #### B 12 ####[place] [address]#### TSH, PBNP, CMP, ANEU, ADIFF, CBC, GFR, FE ####[place] [address] [place], [place] [address] Neutrophils/100 WBC (Bld) 68.6 % Normal 37.0-80.0 [facility] ([place]) Comment on above: Performed By: #### B 12 ####[place] [address]#### TSH, PBNP, CMP, ANEU, ADIFF, CBC, GFR, FE ####Katie [address] [place], [place] [address] .GFRon 08-17-2023 GFR 38 ml/min/1.73sqm Normal [facility] ([place]) Comment on above: Result Comment: GFR Population mean for , Non- Americans Ages 20-29 = 116 mL/min/1.73 sq.m. Ages 30-39 = 107 mL/min/1.73 sq.m. Ages 40-49 = 99 mL/min/1.73 sq.m. Ages 50-59 = 93 mL/min/1.73 sq.m. Ages 60-69 = 85 mL/min/1.73 sq.m. Ages 70+ = 75 mL/min/1.73 sq.m.Chronic Kidney Disease: Less than 60 mL/min/1.73 square metersEnd Stage Renal Disease: Less than 15 mL/min/1.73 square meters Performed By: #### B 12 ####[place] [address]#### TSH, PBNP, CMP, ANEU, ADIFF, CBC, GFR, FE ####Katie [address] [place], [place] [address] GFR Non- 31 ml/min/1.73sqm Normal [facility] ([place]) Comment on above: Result Comment: GFR Population mean for , Non- Americans Ages 20-29 = 116 mL/min/1.73 sq.m. Ages 30-39 = 107 mL/min/1.73 sq.m. Ages 40-49 = 99 mL/min/1.73 sq.m. Ages 50-59 = 93 mL/min/1.73 sq.m. Ages 60-69 = 85 mL/min/1.73 sq.m. Ages 70+ = 75 mL/min/1.73 sq.m.Chronic Kidney Disease: Less than 60 mL/min/1.73 square metersEnd Stage Renal Disease: Less than 15 mL/min/1.73 square meters Performed By: #### B 12 ####[place] [id number]#### TSH, PBNP, CMP, ANEU, ADIFF, CBC, GFR, FE ####Katie [place] [place], [place] [address] .NEUABSon 08-17-2023 Neutrophil, Absolute 3.6 10 3/mcL Normal 2.9-6.2 [facility] ([place]) Comment on above: Performed By: #### B 12 ####[place] [address]#### TSH, PBNP, CMP, ANEU, ADIFF, CBC, GFR, FE ####Katie [address] [place], [place] [address] A1Con 08-17-2023 HbA1c (Bld) [Mass fraction] 5.9 % Normal 4.3-6.4 [facility] ([place]) Comment on above: Performed By: #### A 1C ####Katie [address] [place], [place] [address] B12on 08-17-2023 Cobalamin (Vitamin B12) [Mass/Vol] 958 pg/mL High 211-911 [facility] ([place]) Comment on above: Performed By: #### B 12 ####[place] [address]#### TSH, PBNP, CMP, ANEU, ADIFF, CBC, GFR, FE ####Katie [address] [place], [place] [address] CBCon 08-17-2023 Erythrocyte distribution width (RBC) [Ratio] 16.4 % High 11.5-14.5 [facility] ([place]) Comment on above: Performed By: #### B 12 ####[place] [address]#### TSH, PBNP, CMP, ANEU, ADIFF, CBC, GFR, FE ####Katie [address] [place], [place] [address] Hematocrit (Bld) [Volume fraction] 30.8 % Low 42.0-52.0 [facility] ([place]) Comment on above: Performed By: #### B 12 ####[place] [address]#### TSH, PBNP, CMP, ANEU, ADIFF, CBC, GFR, FE ####Katie [place] [place], [place] [address] Hgb 10.2 G/dL Low 14.0-18.0 [facility] ([place]) Comment on above: Performed By: #### B 12 ####[place] [address]#### TSH, PBNP, CMP, ANEU, ADIFF, CBC, GFR, FE ####Katie [address] [place] [phone] MCH (RBC) [Entitic mass] 30.0 pg Normal 27.0-31.2 [facility] ([place]) Comment on above: Performed By: #### B 12 ####[place] [address]#### TSH, PBNP, CMP, ANEU, ADIFF, CBC, GFR, FE ####[place] [address] [place] [phone] MCHC 33.0 G/dL Normal 31.8-35.4 [facility] ([place]) Comment on above: Performed By: #### B 12 ####[place] [address]#### TSH, PBNP, CMP, ANEU, ADIFF, CBC, GFR, FE ####Katie [address] [place] [phone] MCV (RBC) [Entitic vol] 90.9 fL Normal 80.0-94.0 A [facility] ([place]) Comment on above: Performed By: #### B 12 ####[place] [address]#### TSH, PBNP, CMP, ANEU, ADIFF, CBC, GFR, FE ####Katie [address] [place] [phone] Platelet 99 10 3/mcL Low 130-400 [facility] ([place]) Comment on above: Performed By: #### B 12 ####[place] [address]#### TSH, PBNP, CMP, ANEU, ADIFF, CBC, GFR, FE ####Katie [place] [place], [place] [address] Platelet mean volume (Bld) [Entitic vol] 9.0 fL Normal 7.4-10.4 [facility] ([place]) Comment on above: Performed By: #### B 12 ####[place] [address]#### TSH, PBNP, CMP, ANEU, ADIFF, CBC, GFR, FE ####Katie [place] [place] [phone] RBC 3.39 10 6/mcL Low 4.04-6.13 [facility] ([place]) Comment on above: Performed By: #### B 12 ####[place] [address]#### TSH, PBNP, CMP, ANEU, ADIFF, CBC, GFR, FE ####Katie [address] [place] [phone] WBC 5.2 10 3/mcL Normal 4.6-10.8 [facility] ([place]) Comment on above: Performed By: #### B 12 ####[place] [address]#### TSH, PBNP, CMP, ANEU, ADIFF, CBC, GFR, FE ####Katie [address] [place], [place] [address] CMPon 08-17-2023 Albumin Level 3.5 G/dL Normal 3.4-4.8 [facility] ([place]) Comment on above: Performed By: #### B 12 ####[place] [address]#### TSH, PBNP, CMP, ANEU, ADIFF, CBC, GFR, FE ####Katie [address] [place] [phone] Albumin/Globulin [Mass ratio] 1.0 {ratio} Low 1.1-2.5 [facility] ([place]) Comment on above: Performed By: #### B 12 ####[place] [address]#### TSH, PBNP, CMP, ANEU, ADIFF, CBC, GFR, FE ####[place] [address] [place], [place] [address] ALP [Catalytic activity/Vol] 74 U/L Normal 40-135 [facility] ([place]) Comment on above: Performed By: #### B 12 ####[place] [address]#### TSH, PBNP, CMP, ANEU, ADIFF, CBC, GFR, FE ####[facility]832 [place], [place] [address] ALT [Catalytic activity/Vol] 23 U/L Normal 16-63 [facility] ([place]) Comment on above: Performed By: #### B 12 ####[place] [address]#### TSH, PBNP, CMP, ANEU, ADIFF, CBC, GFR, FE ####[facility] [place] [phone] AST [Catalytic activity/Vol] 15 U/L Normal 10-40 [facility] ([place]) Comment on above: Performed By: #### B 12 ####[place] [address]#### TSH, PBNP, CMP, ANEU, ADIFF, CBC, GFR, FE ####[facility] [place], [place] [address] Bili Total 0.5 mg/dL Normal 0.2-1.0 [facility] ([place]) Comment on above: Result Comment: Use of this assay is not recommended for patients undergoing treatment with eltrombopag due to the potential for falsely elevated results. Performed By: #### B 12 ####[place] [address]#### TSH, PBNP, CMP, ANEU, ADIFF, CBC, GFR, FE ####[facility] [place] [phone] BUN/Creatinine Ratio 31 ratio High 7-27 [facility] ([place]) Comment on above: Performed By: #### B 12 ####[place] [address]#### TSH, PBNP, CMP, ANEU, ADIFF, CBC, GFR, FE ####[place] [address] [place], [place] [address] Calcium [Mass/Vol] 8.9 mg/dL Normal 8.4-10.2 [facility] ([place]) Comment on above: Performed By: #### B 12 ####[place] [address]#### TSH, PBNP, CMP, ANEU, ADIFF, CBC, GFR, FE ####[facility] [place], [place] [address] Chloride [Moles/Vol] 109 mmol/L High 98-107 [facility] ([place]) Comment on above: Performed By: #### B 12 ####[place] [address]#### TSH, PBNP, CMP, ANEU, ADIFF, CBC, GFR, FE ####[facility] [place] [address] CO2 [Moles/Vol] 28 mmol/L Normal 23-31 [facility] ([place]) Comment on above: Performed By: #### B 12 ####[place] [address]#### TSH, PBNP, CMP, ANEU, ADIFF, CBC, GFR, FE ####[facility] [place], [place] [address] Creatinine [Mass/Vol] 2.03 mg/dL High 0.70-1.30 [facility] ([place]) Comment on above: Performed By: #### B 12 ####[place] [address]#### TSH, PBNP, CMP, ANEU, ADIFF, CBC, GFR, FE ####[facility] [place] [phone] Electrolyte Balance 10.0 mEq/L Normal 4.0-15.0 [facility] ([place]) Comment on above: Performed By: #### B 12 ####[place] [address]#### TSH, PBNP, CMP, ANEU, ADIFF, CBC, GFR, FE ####[place] [address] [place], [place] [address] Globulin 3.5 G/dL Normal [facility] ([place]) Comment on above: Performed By: #### B 12 ####[place] [address]#### TSH, PBNP, CMP, ANEU, ADIFF, CBC, GFR, FE ####Katie [address] [place], [place] [address] Glucose [Mass/Vol] 107 mg/dL Normal 83-110 [facility] ([place]) Comment on above: Performed By: #### B 12 ####[place] [address]#### TSH, PBNP, CMP, ANEU, ADIFF, CBC, GFR, FE ####[place] [address] [place], [place] [address] Potassium [Moles/Vol] 4.5 mmol/L Normal 3.5-5.1 [facility] ([place]) Comment on above: Performed By: #### B 12 ####[place] [address]#### TSH, PBNP, CMP, ANEU, ADIFF, CBC, GFR, FE ####Katie [address] [place], [place] [address] Sodium [Moles/Vol] 147 mmol/L High 136-145 [facility] ([place]) Comment on above: Performed By: #### B 12 ####[place] [address]#### TSH, PBNP, CMP, ANEU, ADIFF, CBC, GFR, FE ####[place] [address] [place], [place] [address] Total Protein 7.0 G/dL Normal 6.4-8.2 [facility] ([place]) Comment on above: Performed By: #### B 12 ####[place] [address]#### TSH, PBNP, CMP, ANEU, ADIFF, CBC, GFR, FE ####Katie [address] [place], [place] [address] Urea nitrogen [Mass/Vol] 62 mg/dL High 7-18 [facility] ([place]) Comment on above: Performed By: #### B 12 ####[address] [address]#### TSH, PBNP, CMP, ANEU, ADIFF, CBC, GFR, FE ####Katie [address] [place], [place] [address] FEon 08-17-2023 Iron [Mass/Vol] 97 ug/dL Normal 65-175 [facility] ([place]) Comment on above: Performed By: #### B 12 ####[place] [id number]#### TSH, PBNP, CMP, ANEU, ADIFF, CBC, GFR, FE ####Katie [place] [place], [place] [address] LABORATORYOrdered By: SYSTEM SYSTEM on 08-17-2023 HbA1c (Bld) [Mass fraction] 5.9 % Normal 4.3 - 6.4 % AO ADM SS Albumin BCP dye [Mass/Vol] 3.5 G/dL Normal 3.4 - 4.8 G/dL AO ADM SS Albumin/Globulin [Mass ratio] 1.0 {ratio} Low 1.1 - 2.5 ratio AO ADM SS ALP [Catalytic activity/Vol] 74 U/L Normal 40 - 135 U/L AO ADM SS ALT With P-5'-P [Catalytic activity/Vol] 23 U/L Normal 16 - 63 U/L AO ADM SS AST With P-5'-P [Catalytic activity/Vol] 15 U/L Normal 10 - 40 U/L AO ADM SS Basophil, Absolute 0.0 103/mcL Normal 0.0 - 0.2 10^3/mcL AO Workflow SS Basophils/100 WBC (Bld) 0.6 % Normal 0.0 - 2.5 % AO Workflow SS Bilirubin [Mass/Vol] 0.5 mg/dL Normal 0.2 - 1 .0 mg/dL AO ADM SS Comment on above: Interpretive Data: U se of this assay is not recommended for patients undergoing treatment with eltrombopag due to the potential for falsely elevated results. Calcium [Mass/Vol] 8.9 mg/dL Normal 8.4 - 10. 2 mg/dL AO ADM SS Chloride [Moles/Vol] 109 mmol/L High 98 - 10 7 mmol/L AO ADM SS CO2 [Moles/Vol] 28 mmol/L Normal 23 - 31 mmol/L AO ADM SS Cobalamin (Vitamin B12) [Mass/Vol] 958 pg/mL High 211 - 911 pg/mL AH ADM SS Creatinine [Mass/Vol] 2.03 mg/dL High 0.70 - 1.30 mg/dL AO ADM SS Electrolyte Balance 10.0 mEq/L Normal 4.0 - 15 .0 mEq/L AO ADM SS Eosinophil, Absolute 0.2 103/mcL Normal 0.0 - 0 .4 10^3/mcL AO Workflow SS Eosinophils/100 WBC (Bld) 3.1 % Normal 0.0 - 7.0 % AO Workflow SS Erythrocyte distribution width (RBC) [Ratio] 16.4 % High 11.5 - 14.5 % AO Workflow SS GFR/1.73 sq M.predicted among blacks MDRD (S/P/Bld) [Vol rate/Area] 38 ml/min/1.73sqm Invalid Interpretation Code AO Chemistry S Comment on above: Interpretive Data: GFR Population mean for , Non- Americans Ages 20-29 = 116 mL/min/1.73 sq.m. Ages 30-39 = 107 mL/min/1.73 sq.m. Ages 40-49 = 99 mL/min/1.73 sq.m. Ages 50-59 = 93 mL/min/1.73 sq.m. Ages 60-69 = 85 mL/min/1.73 sq.m. Ages 70+ = 75 mL/min/1.73 sq.m. Chronic Kidney Disease: Less than 60 mL/min/1.73 square meters End Stage Renal Disease: Less than 15 mL/min/1.73 square meters GFR/1.73 sq M.predicted among non-blacks MDRD (S/P/Bld) [Vol rate/Area] 31 ml/min/1.73sqm Invalid Interpretation Code AO Chemistry S Comment on above: Interpretive Data: GFR Population mean for , Non- Americans Ages 20-29 = 116 mL/min/1.73 sq.m. Ages 30-39 = 107 mL/min/1.73 sq.m. Ages 40-49 = 99 mL/min/1.73 sq.m. Ages 50-59 = 93 mL/min/1.73 sq.m. Ages 60-69 = 85 mL/min/1.73 sq.m. Ages 70+ = 75 mL/min/1.73 sq.m. Chronic Kidney Disease: Less than 60 mL/min/1.73 square meters End Stage Renal Disease: Less than 15 mL/min/1.73 square meters Globulin 3.5 G/dL Invalid Interpretation Code AO ADM SS Glucose [Mass/Vol] 107 mg/dL Normal 83 - 110 mg/dL AO ADM SS Hematocrit (Bld) [Volume fraction] 30.8 % Low 42.0 - 52.0 % AO Workflow SS Hemoglobin (Bld) [Mass/Vol] 10.2 G/dL Low 14.0 - 18.0 G/dL AO Workflow SS Iron [Mass/Vol] 97 ug/dL Normal 65 - 175 mcg/dL AO ADM SS Lymphocyte, Absolute 1.1 103/mcL Normal 0.8 - 3 .9 10^3/mcL AO Workflow SS Lymphocytes/100 WBC (Bld) 20.8 % Normal 10.0 - 50.0 % AO Workflow SS MCH (RBC) [Entitic mass] 30.0 pg Normal 27. 0 - 31.2 pg AO Workflow SS MCHC 33.0 G/dL Normal 31.8 - 35.4 G/dL AO Workflow SS MCV (RBC) [Entitic vol] 90.9 fL Normal 80.0 - 94.0 fL AO Workflow SS Monocyte, Absolute 0.4 103/mcL Normal 0.2 - 1.0 10^3/mcL AO Workflow SS Monocytes/100 WBC (Bld) 6.9 % Normal 1.7 - 13.0 % AO Workflow SS Natriuretic peptide.B prohormone N-Terminal [Mass/Vol] 1234 pg/mL High 0 - 450 pg/mL AO ADM SS Comment on above: Interpretive Data: N T-proBNP results of less than 300 pg/mL effectively rules out acute congestive heart failure with 99% negative predictive value. Neutrophil, Absolute 3.6 103/mcL Normal 2.9 - 6 .2 10^3/mcL AO Workflow SS Neutrophils/100 WBC (Bld) 68.6 % Normal 37.0 - 80.0 % AO Workflow SS Platelet mean volume (Bld) [Entitic vol] 9.0 fL Normal 7.4 - 10.4 fL AO Workflow SS Platelets (Bld) [#/Vol] 99 103/mcL Low 130 - 400 10^3/mcL AO Workflow SS Potassium [Moles/Vol] 4.5 mmol/L Normal 3.5 - 5.1 mmol/L AO ADM SS Protein [Mass/Vol] 7.0 G/dL Normal 6.4 - 8.2 G/dL AO ADM SS RBC (Bld) [#/Vol] 3.39 106/mcL Low 4.04 - 6.1 3 10^6/mcL AO Workflow SS Sodium [Moles/Vol] 147 mmol/L High 136 - 145 mmol/L AO ADM SS TSH Qn 2.84 m[IU]/L Normal 0.36 - 3.74 mcIU/mL AO ADM SS Urea nitrogen [Mass/Vol] 62 mg/dL High 7 - 18 mg/dL AO ADM SS Urea nitrogen/Creatinine [Mass ratio] 31 ratio High 7 - 27 ratio AO ADM SS WBC (Bld) [#/Vol] 5.2 103/mcL Normal 4.6 - 10.8 10^3/mcL AO Workflow SS PBNPon 08-17-2023 Natriuretic peptide B (Bld) [Mass/Vol] 1234 pg/mL High 0-450 [facility] ([place]) Comment on above: Result Comment: NT-p roBNP results of less than 300 pg/mL effectivelyrules out acute congestive heart failure with 99% negative predictive value. Performed By: #### B 12 ####[address] [id number]#### TSH, PBNP, CMP, ANEU, ADIFF, CBC, GFR, FE ####[facility] [place] [place], [place] [address] TSHon 08-17-2023 TSH Qn 2.84 m[IU]/L Normal 0.36-3.74 [facility] ([place]) Comment on above: Performed By: #### B 12 ####[address] [address]#### TSH, PBNP, CMP, ANEU, ADIFF, CBC, GFR, FE ####[facility] [place], [place] [address] .Auto Diffon 07-03-2023 Basophil, Absolute 0.0 10 3/mcL Normal 0.0-0.2 [facility] ([place]) Comment on above: Performed By: #### A DIFF, GFR, CBC, PBNP, ANEU, CMP, RETO ####Katie [address] [place], [place] [address] Basophils/100 WBC (Bld) 0.5 % Normal 0.0-2.5 [facility] ([place]) Comment on above: Performed By: #### A DIFF, GFR, CBC, PBNP, ANEU, CMP, RETO ####K[address] [place] [place], [place] [address] Eosinophil, Absolute 0.2 10 3/mcL Normal 0.0-0.4 [facility] ([place]) Comment on above: Performed By: #### A DIFF, GFR, CBC, PBNP, ANEU, CMP, RETO ####Katie [address] [place], [place] [address] Eosinophils/100 WBC (Bld) 3.6 % Normal 0.0-7.0 [facility] ([place]) Comment on above: Performed By: #### A DIFF, GFR, CBC, PBNP, ANEU, CMP, RETO ####Katie [address] [place], [place] [address] Lymphocyte, Absolute 1.4 10 3/mcL Normal 0.8-3.9 [facility] ([place]) Comment on above: Performed By: #### A DIFF, GFR, CBC, PBNP, ANEU, CMP, RETO ####Katie Wm[address]tey[address] [place], [place] [address] Lymphocytes/100 WBC (Bld) 26.5 % Normal 10.0-50.0 [facility] ([place]) Comment on above: Performed By: #### A DIFF, GFR, CBC, PBNP, ANEU, CMP, RETO ####Katie Bss[address] [place], [place] [address] Monocyte, Absolute 0.4 10 3/mcL Normal 0.2-1.0 [facility] ([place]) Comment on above: Performed By: #### A DIFF, GFR, CBC, PBNP, ANEU, CMP, RETO ####Katie Torres[address] [place], [place] [address] Monocytes/100 WBC (Bld) 8.3 % Normal 1.7-13.0 [facility] ([place]) Comment on above: Performed By: #### A DIFF, GFR, CBC, PBNP, ANEU, CMP, RETO ####Katie Torres[address] [place], [place] [address] Neutrophils/100 WBC (Bld) 61.1 % Normal 37.0-80.0 [facility] ([place]) Comment on above: Performed By: #### A DIFF, GFR, CBC, PBNP, ANEU, CMP, RETO ####Katie [address] [place], [place] [address] .GFRon 07-03-2023 GFR 35 ml/min/1.73sqm Normal [facility] ([place]) Comment on above: Result Comment: GFR Population mean for , Non- Americans Ages 20-29 = 116 mL/min/1.73 sq.m. Ages 30-39 = 107 mL/min/1.73 sq.m. Ages 40-49 = 99 mL/min/1.73 sq.m. Ages 50-59 = 93 mL/min/1.73 sq.m. Ages 60-69 = 85 mL/min/1.73 sq.m. Ages 70+ = 75 mL/min/1.73 sq.m.Chronic Kidney Disease: Less than 60 mL/min/1.73 square metersEnd Stage Renal Disease: Less than 15 mL/min/1.73 square meters Performed By: #### A DIFF, GFR, CBC, PBNP, ANEU, CMP, RETO ####Katiezac Ad[address] [place], [place] [address] GFR Non- 29 ml/min/1.73sqm Normal [facility] ([place]) Comment on above: Result Comment: GFR Population mean for , Non- Americans Ages 20-29 = 116 mL/min/1.73 sq.m. Ages 30-39 = 107 mL/min/1.73 sq.m. Ages 40-49 = 99 mL/min/1.73 sq.m. Ages 50-59 = 93 mL/min/1.73 sq.m. Ages 60-69 = 85 mL/min/1.73 sq.m. Ages 70+ = 75 mL/min/1.73 sq.m.Chronic Kidney Disease: Less than 60 mL/min/1.73 square metersEnd Stage Renal Disease: Less than 15 mL/min/1.73 square meters Performed By: #### A DIFF, GFR, CBC, PBNP, ANEU, CMP, RETO ####Katie [address] [place], [place] [address] .NEUABSon 07-03-2023 Neutrophil, Absolute 3.2 10 3/mcL Normal 2.9-6.2 [facility] ([place]) Comment on above: Performed By: #### A DIFF, GFR, CBC, PBNP, ANEU, CMP, RETO ####Katie [address] [place], [place] [address] CBCon 07-03-2023 Erythrocyte distribution width (RBC) [Ratio] 15.5 % High 11.5-14.5 [facility] ([place]) Comment on above: Performed By: #### A DIFF, GFR, CBC, PBNP, ANEU, CMP, RETO ####Katie [address] [place], [place] [address] Hematocrit (Bld) [Volume fraction] 26.2 % Low 42.0-52.0 [facility] ([place]) Comment on above: Performed By: #### A DIFF, GFR, CBC, PBNP, ANEU, CMP, RETO ####Katie [address] [place], [place] [address] Hgb 8.8 G/dL Low 14.0-18.0 [facility] ([place]) Comment on above: Performed By: #### A DIFF, GFR, CBC, PBNP, ANEU, CMP, RETO ####Katie [address] [place], [place] [address] MCH (RBC) [Entitic mass] 29.0 pg Normal 27.0-31.2 [facility] ([place]) Comment on above: Performed By: #### A DIFF, GFR, CBC, PBNP, ANEU, CMP, RETO ####Katie [address]yq[address] [place], [place] [address] MCHC 33.6 G/dL Normal 31.8-35.4 [facility] ([place]) Comment on above: Performed By: #### A DIFF, GFR, CBC, PBNP, ANEU, CMP, RETO ####Katiezac [address] [place], [place] [address] MCV (RBC) [Entitic vol] 86.4 fL Normal 80.0-94.0 [facility] ([place]) Comment on above: Performed By: #### A DIFF, GFR, CBC, PBNP, ANEU, CMP, RETO ####Katie [address] [place], [place] [address] Platelet 107 10 3/mcL Low 130-400 [facility] ([place]) Comment on above: Performed By: #### A DIFF, GFR, CBC, PBNP, ANEU, CMP, RETO ####Katie [address] [place], [place] [address] Platelet mean volume (Bld) [Entitic vol] 9.4 fL Normal 7.4-10.4 [facility] ([place]) Comment on above: Performed By: #### A DIFF, GFR, CBC, PBNP, ANEU, CMP, RETO ####Katie [address] [place], [place] [address] RBC 3.03 10 6/mcL Low 4.04-6.13 [facility] ([place]) Comment on above: Performed By: #### A DIFF, GFR, CBC, PBNP, ANEU, CMP, RETO ####Katiezac [address]hb[address]qbe[address] [place], [place] [address] WBC 5.3 10 3/mcL Normal 4.6-10.8 [facility] ([place]) Comment on above: Performed By: #### A DIFF, GFR, CBC, PBNP, ANEU, CMP, RETO ####Katie [address] [place], [place] [address] CMPon 07-03-2023 Albumin Level 3.3 G/dL Low 3.4-4.8 [facility] ([place]) Comment on above: Performed By: #### A DIFF, GFR, CBC, PBNP, ANEU, CMP, RETO ####Katie [address] [place], [place] [address] Albumin/Globulin [Mass ratio] 1.1 {ratio} Normal 1.1-2.5 [facility] ([place]) Comment on above: Performed By: #### A DIFF, GFR, CBC, PBNP, ANEU, CMP, RETO ####Katie [address] [place], [place] [address] ALP [Catalytic activity/Vol] 76 U/L Normal 40-135 [facility] ([place]) Comment on above: Performed By: #### A DIFF, GFR, CBC, PBNP, ANEU, CMP, RETO ####Katie [address] [place], [place] [address] ALT [Catalytic activity/Vol] 27 U/L Normal 16-63 [facility] ([place]) Comment on above: Performed By: #### A DIFF, GFR, CBC, PBNP, ANEU, CMP, RETO ####Katie [address] [place], [place] [address] AST [Catalytic activity/Vol] 17 U/L Normal 10-40 [facility] ([place]) Comment on above: Performed By: #### A DIFF, GFR, CBC, PBNP, ANEU, CMP, RETO ####Katie [address] [place], [place] [address] Bili Total 0.5 mg/dL Normal 0.2-1.0 [facility] ([place]) Comment on above: Result Comment: Use of this assay is not recommended for patients undergoing treatment with eltrombopag due to the potential for falsely elevated results. Performed By: #### A DIFF, GFR, CBC, PBNP, ANEU, CMP, RETO ####Katie [address] [place], [place] [address] BUN/Creatinine Ratio 27 ratio Normal 7-27 [facility] ([place]) Comment on above: Performed By: #### A DIFF, GFR, CBC, PBNP, ANEU, CMP, RETO ####Katie [address] [place], [place] [address] Calcium [Mass/Vol] 8.4 mg/dL Normal 8.4-10.2 [facility] ([place]) Comment on above: Performed By: #### A DIFF, GFR, CBC, PBNP, ANEU, CMP, RETO ####Katie [address] [place], [place] [address] Chloride [Moles/Vol] 108 mmol/L High 98-107 [facility] ([place]) Comment on above: Performed By: #### A DIFF, GFR, CBC, PBNP, ANEU, CMP, RETO ####Katie [address] [place], [place] [address] CO2 [Moles/Vol] 30 mmol/L Normal 23-31 [facility] ([place]) Comment on above: Performed By: #### A DIFF, GFR, CBC, PBNP, ANEU, CMP, RETO ####Katie [address] [place], [place] [address] Creatinine [Mass/Vol] 2.16 mg/dL High 0.70-1.30 [facility] ([place]) Comment on above: Performed By: #### A DIFF, GFR, CBC, PBNP, ANEU, CMP, RETO ####Katie [address] [place], [place] [address] Electrolyte Balance 8.0 mEq/L Normal 4.0-15.0 [facility] ([place]) Comment on above: Performed By: #### A DIFF, GFR, CBC, PBNP, ANEU, CMP, RETO ####Katie [address] [place], [place] [address] Globulin 2.9 G/dL Normal [facility] ([place]) Comment on above: Performed By: #### A DIFF, GFR, CBC, PBNP, ANEU, CMP, RETO ####Katie [address] [place], [place] [address] Glucose [Mass/Vol] 153 mg/dL High 83-110 [facility] ([place]) Comment on above: Performed By: #### A DIFF, GFR, CBC, PBNP, ANEU, CMP, RETO ####[address] [place], [place] [address] Potassium [Moles/Vol] 4.1 mmol/L Normal 3.5-5.1 [facility] ([place]) Comment on above: Performed By: #### A DIFF, GFR, CBC, PBNP, ANEU, CMP, RETO ####Katie [address] [place], [place] [address] Sodium [Moles/Vol] 146 mmol/L High 136-145 [facility] ([place]) Comment on above: Performed By: #### A DIFF, GFR, CBC, PBNP, ANEU, CMP, RETO ####Katie [address] [place], [place] [address] Total Protein 6.2 G/dL Low 6.4-8.2 [facility] ([place]) Comment on above: Performed By: #### A DIFF, GFR, CBC, PBNP, ANEU, CMP, RETO ####Katie [address] [place], [place] [address] Urea nitrogen [Mass/Vol] 58 mg/dL High 7-18 [facility] ([place]) Comment on above: Performed By: #### A DIFF, GFR, CBC, PBNP, ANEU, CMP, RETO ####Katie [address] [place], [place] [address] PBNPon 07-03-2023 Natriuretic peptide B (Bld) [Mass/Vol] 1518 pg/mL High 0-450 [facility] ([place]) Comment on above: Result Comment: NT-p roBNP results of less than 300 pg/mL effectivelyrules out acute congestive heart failure with 99% negative predictive value. Performed By: #### A DIFF, GFR, CBC, PBNP, ANEU, CMP, RETO ####Katie [address] [place], [place] [address] RETO (AO)on 07-03-2023 Immature Retic Fraction 0.51 IRF High 0.20-0.46 [facility] ([place]) Comment on above: Performed By: #### A DIFF, GFR, CBC, PBNP, ANEU, CMP, RETO ####Katie [address] [place], [place] [address] Reticulocytes, Auto 1.8 % Normal 0.2-2.3 [facility] ([place]) Comment on above: Performed By: #### A DIFF, GFR, CBC, PBNP, ANEU, CMP, RETO ###[address] [place], [place] [address] Absolute lymphocyte countOrd ered By: Dalton Forrest on 06-27-2023 Lymphocytes Auto (Unsp spec) [#/Vol] 1.13 10*3/uL 0.83-4.51 [facility] Automated lymphocyte count a s percentage of total leukocytesOrdered By: Dalton Forrest on 06-27-2023 Lymphocytes/100 WBC Auto (Unsp spec) 23.7 % 19-41 [facility] Basophil percentageOrdered B y: Dalton Forrest on 06-27-2023 Basophil percentage 0 SEEN /hpf 0-5 [facility] Basophils/100 WBC (Bld) 0.4 % 0-1 [facility] Bilirubin [Mass/Vol] 0.70 mg/dL 0.20-1.00 [facility] Comment on above: For patients on eltr ombopag therapy, use of Dimension [place] TBIL is not recommended. Chloride [Moles/Vol] 107 mmol/L 98-107 [facility] Eosinophils/100 WBC (Bld) 3.8 % 0-5 [facility] Glucose [Mass/Vol] 257 mg/dL 74-106 [facility] Comment on above: Glucose result great er than or equal to 200 mg/dLsuggests DIABETES MELLITUS per A.D.A. criteria. Hemoglobin (Bld) [Mass/Vol] 8.5 g/dL 13.0-16.5 [facility] Monocytes/100 WBC (Bld) 9.6 % 0-10 [facility] Neutrophils (Bld) [#/Vol] 3.0 10*3/uL 2.0-7.7 [facility] Neutrophils/100 WBC (Bld) 62.3 % 47-70 [facility] Potassium [Moles/Vol] 4.0 mmol/L 3.5-5.1 [facility] Protein [Mass/Vol] 6.7 g/dL 6.4-8.2 [facility] Sodium [Moles/Vol] 142 mmol/L 136-145 [facility] WBC (Bld) [#/Vol] 4.8 10*3/uL 4.4-11.0 [facility] Bilirubin Test strip Ql (U)O rdered By: Dalton Forrest on 06-27-2023 Bilirubin Ql (U) Negative Negative [facility] Blood platelet adequacy dete ction by light microscopyOrdered By: Dalton Forrest on 06-27-2023 Platelets LM Ql (Bld) SLT DEC ADEQ [facility] Determination of erythrocyte mean corpuscular volume (MCV)Ordered By: Dalton Forrest on 06-27-2023 MCV (RBC) [Entitic vol] 90.2 fL 80-94 [facility] Erythrocyte distribution wid th ratioOrdered By: Dalton Forrest on 06-27-2023 Erythrocyte distribution width (RBC) [Ratio] 14.3 % 11.6-14.6 [facility] Erythrocyte distribution wid th standard deviationOrdered By: Dalton Forrest on 06-27-2023 Erythrocyte distribution width (RBC) [Entitic vol] 47.0 fL 35.1-43.9 [facility] Hematocrit Auto (Bld) [Volum e fraction]Ordered By: Dalton Forrest on 06-27-2023 Hematocrit (Bld) [Volume fraction] 27.5 % 40-54 [facility] Immature granulocytes/100 WB C Auto (Bld)Ordered By: Dalton Forrest on 06-27-2023 Immature granulocytes/100 WBC (Bld) 0.200 % 0.0-0.9 [facility] Comment on above: IG% - Immature Granu locytes (promyelocytes, myelocytes and metamyelocytes) > 1% indicates that a LEFT SHIFT is Present. Ketones Test strip Ql (U)Ord ered By: Dalton Forrest on 06-27-2023 Ketones Ql (U) Negative Negative [facility] Laboratory - Chemistry and C hemistry - challengeOrdered By: Dalton Forrest on 06-27-2023 Albumin/Globulin [Mass ratio] 0.8 {ratio} 0.9-2.4 [facility] ALP [Catalytic activity/Vol] 73 U/L 45-117 [facility] ALT [Catalytic activity/Vol] 37 U/L 16-61 [facility] CO2 [Moles/Vol] 30.0 mmol/L 21.0-32.0 [facility] Globulin (S) [Mass/Vol] 3.7 g/dL 2.2-4.2 [facility] Urea nitrogen/Creatinine [Mass ratio] 26.3 mg/mg 10-20 [facility] - Hematology and Cell countsOrdered By: Dalton Forrest on 06-27-2023 MCH (RBC) [Entitic mass] 27.9 pg 27.0-32.0 [facility] MCHC (RBC) [Mass/Vol] 30.9 g/dL 32-36 [facility] Nucleated RBC/100 WBC (Bld) [Ratio] 0 % 0-5 [facility] Platelet mean volume (Bld) [Entitic vol] 11.4 fL 6.2-12.0 [facility] Platelets (Bld) [#/Vol] 88 10*3/uL 150-450 [facility] Mucus LM Ql (Urine sed)Order ed By: Dalton Forrest on 06-27-2023 Mucus Ql (Urine sed) RARE /hpf [facility] Nitrite Test strip Ql (U)Ord ered By: Dalton Forrest on 06-27-2023 Nitrite Ql (U) Negative Negative [facility] No Panel InformationOrdered By: Dalton Forrest on 06-27-2023 Urine RBC 0 SEEN /hpf 0-5 [facility] Estimated GFR (MDRD) Amer 33 mL/min >60 [facility] Comment on above: GFR Calc Estimated GFR (MDRD) Non-Af Amer 27 mL/min >60 [facility] Comment on above: Non- GFR Calc Troponin I High Sensitivity 31 pg/mL 3.0-78.0 [facility] Comment on above: Please Note: New Arti t Units and Gender Specific Reference Ranges. For more information see Policy Stat Procedure [place] High Sensitivity Troponin (TNIH) and attachments. Protein Test strip Ql (U)Ord ered By: Dalton Forrest on 06-27-2023 Protein Ql (U) 30 mg/dl Negative [facility] RBC Auto (Bld) [#/Vol]Ordere d By: Dalton Forrest on 06-27-2023 RBC (Bld) [#/Vol] 3.05 10*6/uL 4.6-6.2 [facility] Serum or plasma calcium elmira urement (mass/volume)Ordered By: Dalton Forrest on 06-27-2023 Calcium [Mass/Vol] 9.2 mg/dL 8.5-10.1 [facility] Serum or plasma creatinine m easurement (mass/volume)Ordered By: Dalton Forrest on 06-27-2023 Creatinine [Mass/Vol] 2.43 mg/dL 0.70-1.30 [facility] Comment on above: The validity of the calculated GFR & GFRAA in patients over 70 years has not been determined. Clinical correlation is essential. Serum or plasma urea nitroge n measurement (mass/volume)Ordered By: Dalton Forrest on 06-27-2023 Urea nitrogen [Mass/Vol] 64 mg/dL 7-18 [facility] Squamous epithelial cells de tection in urine sediment by light microscopyOrdered By: Dalton Forrest on 06-27-2023 Epithelial cells.squamous LM Ql (Urine sed) 0-5 SEEN /hpf 0-5 [facility] Thin prep Papanicolaou smear with manual screeningOrdered By: Dalton Forrest on 06-27-2023 Thin prep Papanicolaou smear with manual screening 3.0 g/dL 3.2-5.0 [facility] Thin prep Papanicolaou smear with manual screening 23 U/L 15-37 [facility] Thin prep Papanicolaou smear with manual screening 5 5-15 [facility] Urine blood detectionOrdered By: Dalton Forrest on 06-27-2023 RBC Ql (U) Negative Negative [facility] Urine clarityOrdered By: Sivan Forrest on 06-27-2023 Clarity (U) Clear Clear [facility] Urine color determinationOrd ered By: Dalton Forrest on 06-27-2023 Color (U) Yellow Yellow [facility] Urine glucose detectionOrder ed By: Dalton Forrest on 06-27-2023 Glucose Ql (U) 1000 mg/dl Normal [facility] Urine leukocyte esterase det ection by dipstickOrdered By: Dalton Forrest on 06-27-2023 Leukocyte esterase Test strip Ql (U) Negative Negative [facility] Urine pHOrdered By: Dalton buchanan on 06-27-2023 pH (U) 5.0 [pH] 5.0 - 8.0 [facility] Urine sediment bacteria coun t by microscopy (number/high power field)Ordered By: Daltno Forrest on 06-27-2023 Bacteria LM.HPF (Urine sed) [#/Area] 0 /[HPF] None Seen [facility] Urine specific gravity measu rementOrdered By: Dalton Forrest on 06-27-2023 Specific gravity (U) [Rel density] 1.015 1.002-1.030 [facility] Urine urobilinogen measureme ntOrdered By: Dalton Forrest on 06-27-2023 Urobilinogen Ql (U) Normal mg/dl Normal [facility] .Auto Diffon 06-11-2023 Basophil, Absolute 0.0 10 3/mcL Normal 0.0-0.3 [facility] ([place]) Comment on above: Performed By: #### G FR, CBC, ANEU, BMP, ADIFF ####[address] [address] Basophils/100 WBC (Bld) 0.2 % Normal 0.0-2.5 [facility] ([place]) Comment on above: Performed By: #### G FR, CBC, ANEU, BMP, ADIFF ####[address] [address] Eosinophil, Absolute 0.1 10 3/mcL Normal 0.0-0.7 [facility] ([place]) Comment on above: Performed By: #### G FR, CBC, ANEU, BMP, ADIFF ####[address] [address] Eosinophils/100 WBC (Bld) 1.4 % Normal 0.0-6.0 [facility] ([place]) Comment on above: Performed By: #### G FR, CBC, ANEU, BMP, ADIFF ####[address] [address] Lymphocyte, Absolute 1.5 10 3/mcL Normal 0.9-4.3 [facility] ([place]) Comment on above: Performed By: #### G FR, CBC, ANEU, BMP, ADIFF ####[address] [address] Lymphocytes/100 WBC (Bld) 21.0 % Normal 20.0-40.0 [facility] ([place]) Comment on above: Performed By: #### G FR, CBC, ANEU, BMP, ADIFF ####[address] [address] Monocyte, Absolute 0.4 10 3/mcL Normal 0.1-1.4 [facility] ([place]) Comment on above: Performed By: #### G FR, CBC, ANEU, BMP, ADIFF ####[address] [address] Monocytes/100 WBC (Bld) 5.1 % Normal 2.0-13.0 [facility] ([place]) Comment on above: Performed By: #### G FR, CBC, ANEU, BMP, ADIFF ####[address] [address] Neutrophils/100 WBC (Bld) 72.3 % Normal 50.0-75.0 [facility] ([place]) Comment on above: Performed By: #### G FR, CBC, ANEU, BMP, ADIFF ####[address] [address] .GFRon 06-11-2023 GFR 36 ml/min/1.73sqm Normal [facility] ([place]) Comment on above: Result Comment: GFR Population mean for , Non- Americans Ages 20-29 = 116 mL/min/1.73 sq.m. Ages 30-39 = 107 mL/min/1.73 sq.m. Ages 40-49 = 99 mL/min/1.73 sq.m. Ages 50-59 = 93 mL/min/1.73 sq.m. Ages 60-69 = 85 mL/min/1.73 sq.m. Ages 70+ = 75 mL/min/1.73 sq.m.Chronic Kidney Disease: Less than 60 mL/min/1.73 square metersEnd Stage Renal Disease: Less than 15 mL/min/1.73 square meters Performed By: #### G FR, CBC, ANEU, BMP, ADIFF ####[address] [address] GFR Non- 29 ml/min/1.73sqm Normal [facility] ([place]) Comment on above: Result Comment: GFR Population mean for , Non- Americans Ages 20-29 = 116 mL/min/1.73 sq.m. Ages 30-39 = 107 mL/min/1.73 sq.m. Ages 40-49 = 99 mL/min/1.73 sq.m. Ages 50-59 = 93 mL/min/1.73 sq.m. Ages 60-69 = 85 mL/min/1.73 sq.m. Ages 70+ = 75 mL/min/1.73 sq.m.Chronic Kidney Disease: Less than 60 mL/min/1.73 square metersEnd Stage Renal Disease: Less than 15 mL/min/1.73 square meters Performed By: #### G FR, CBC, ANEU, BMP, ADIFF ####[address] [address] .NEUABSon 06-11-2023 Neutrophil, Absolute 5.2 10 3/mcL Normal 2.3-8.1 [facility] ([place]) Comment on above: Performed By: #### G FR, CBC, ANEU, BMP, ADIFF ####[address] [address] BMPon 06-11-2023 BUN/Creatinine Ratio 47.9 ratio High 10.0-22.0 [facility] ([place]) Comment on above: Performed By: #### G FR, CBC, ANEU, BMP, ADIFF ####[address] [address] Calcium [Mass/Vol] 9.2 mg/dL Normal 8.7-10.4 [facility] ([place]) Comment on above: Performed By: #### G FR, CBC, ANEU, BMP, ADIFF ####[address] [address] Chloride [Moles/Vol] 103 mmol/L Normal 98-110 [facility] ([place]) Comment on above: Performed By: #### G FR, CBC, ANEU, BMP, ADIFF ####[address] [address] CO2 [Moles/Vol] 28 mmol/L Normal 22-32 [facility] ([place]) Comment on above: Performed By: #### G FR, CBC, ANEU, BMP, ADIFF ####[address] [address] Creatinine [Mass/Vol] 2.15 mg/dL High 0.60-1.40 [facility] ([place]) Comment on above: Performed By: #### G FR, CBC, ANEU, BMP, ADIFF ####[address] [address] Electrolyte Balance 8.0 mEq/L Normal 4.0-15.0 [facility] ([place]) Comment on above: Performed By: #### G FR, CBC, ANEU, BMP, ADIFF ####[place] [address] Glucose [Mass/Vol] 135 mg/dL High 82-115 [facility] ([place]) Comment on above: Performed By: #### G FR, CBC, ANEU, BMP, ADIFF ####[address] [address] Potassium [Moles/Vol] 4.7 mmol/L Normal 3.5-5.0 [facility] ([place]) Comment on above: Performed By: #### G FR, CBC, ANEU, BMP, ADIFF ####[address] [address] Sodium [Moles/Vol] 139 mmol/L Normal 136-145 [facility] ([place]) Comment on above: Performed By: #### G FR, CBC, ANEU, BMP, ADIFF ####[address] [address] Urea nitrogen [Mass/Vol] 103.0 mg/dL Critica lly abnormal 8.0-22.0 [facility] ([place]) Comment on above: Performed By: #### G FR, CBC, ANEU, BMP, ADIFF ####[place] [address] CBCon 06-11-2023 Erythrocyte distribution width (RBC) [Ratio] 15.8 % High 11.5-15.5 [facility] ([place]) Comment on above: Performed By: #### G FR, CBC, ANEU, BMP, ADIFF ####[place] [address] Hematocrit (Bld) [Volume fraction] 27.0 % Low 40.0-52.0 [facility] ([place]) Comment on above: Performed By: #### G FR, CBC, ANEU, BMP, ADIFF ####[place] [address] Hgb 9.3 G/dL Low 13.0-17.5 [facility] ([place]) Comment on above: Performed By: #### G FR, CBC, ANEU, BMP, ADIFF ####[place] [address] MCH (RBC) [Entitic mass] 29.7 pg Normal 27.0-33.0 [facility] ([place]) Comment on above: Performed By: #### G FR, CBC, ANEU, BMP, ADIFF ####[place] [address] MCHC 34.4 G/dL Normal 32.0-36.0 [facility] ([place]) Comment on above: Performed By: #### G FR, CBC, ANEU, BMP, ADIFF ####[place] [address] MCV (RBC) [Entitic vol] 86.5 fL Normal 81.0-100.0 [facility] ([place]) Comment on above: Performed By: #### G FR, CBC, ANEU, BMP, ADIFF ####[place] [address] Platelet 138 10 3/mcL Low 150-450 [facility] ([place]) Comment on above: Performed By: #### G FR, CBC, ANEU, BMP, ADIFF ####[place] [address] [place] [address] Platelet mean volume (Bld) [Entitic vol] 8.9 fL Normal 6.4-10.5 [facility] ([place]) Comment on above: Performed By: #### G FR, CBC, ANEU, BMP, ADIFF ####[facility] [place] [address] RBC 3.13 10 6/mcL Low 4.50-6.00 [facility] ([place]) Comment on above: Performed By: #### G FR, CBC, ANEU, BMP, ADIFF ####[place] [id number] [place] [address] WBC 7.2 10 3/mcL Normal 4.5-10.8 [facility] ([place]) Comment on above: Performed By: #### G FR, CBC, ANEU, BMP, ADIFF ####[place] [address] LABORATORYOrdered By: Kelly Romero on 06-11-2023 Glucose [Mass/Vol] 161 mg/dL High 82 - 115 mg/dL [facility] Work Phone: Glucose [Mass/Vol] 136 mg/dL High 82 - 115 mg/dL [facility] Work Phone: LABORATORYOrdered By: Katie Wilkins on 06-11-2023 Glucose [Mass/Vol] 136 mg/dL High 82 - 115 mg/dL [facility] Work Phone: LABORATORYOrdered By: SYSTEM SYSTEM on 06-11-2023 Basophils (Bld) [#/Vol] 0.0 103/mcL Normal 0.0 - 0.3 10^3/mcL [facility] Workflow [facility] Basophils/100 WBC (Bld) 0.2 % Normal 0.0 - 2.5 % [facility] Workflow [facility] Calcium [Mass/Vol] 9.2 mg/dL Normal 8.7 - 10. 4 mg/dL [facility]M [facility] Chloride [Moles/Vol] 103 mmol/L Normal 98 - 11 0 mEq/L [facility] CO2 [Moles/Vol] 28 mmol/L Normal 22 - 32 mEq/L [facility] Creatinine [Mass/Vol] 2.15 mg/dL High 0.60 - 1.40 mg/dL [facility] Electrolyte Balance 8.0 mEq/L Normal 4.0 - 15 .0 mEq/L [facility] Eosinophils (Bld) [#/Vol] 0.1 103/mcL Normal 0.0 - 0.7 10^3/mcL [facility] Workflow [facility] Eosinophils/100 WBC (Bld) 1.4 % Normal 0.0 - 6.0 % Workflow [facility] Erythrocyte distribution width (RBC) [Ratio] 15.8 % High 11.5 - 15.5 % [facility] Workflow [facility] GFR/1.73 sq M.predicted among blacks MDRD (S/P/Bld) [Vol rate/Area] 36 ml/min/1.73sqm Invalid Interpretation Code [facility] S Comment on above: Interpretive Data: GFR Population mean for , Non- Americans Ages 20-29 = 116 mL/min/1.73 sq.m. Ages 30-39 = 107 mL/min/1.73 sq.m. Ages 40-49 = 99 mL/min/1.73 sq.m. Ages 50-59 = 93 mL/min/1.73 sq.m. Ages 60-69 = 85 mL/min/1.73 sq.m. Ages 70+ = 75 mL/min/1.73 sq.m. Chronic Kidney Disease: Less than 60 mL/min/1.73 square meters End Stage Renal Disease: Less than 15 mL/min/1.73 square meters GFR/1.73 sq M.predicted among non-blacks MDRD (S/P/Bld) [Vol rate/Area] 29 ml/min/1.73sqm Invalid Interpretation Code [facility] Chemistry S Comment on above: Interpretive Data: GFR Population mean for , Non- Americans Ages 20-29 = 116 mL/min/1.73 sq.m. Ages 30-39 = 107 mL/min/1.73 sq.m. Ages 40-49 = 99 mL/min/1.73 sq.m. Ages 50-59 = 93 mL/min/1.73 sq.m. Ages 60-69 = 85 mL/min/1.73 sq.m. Ages 70+ = 75 mL/min/1.73 sq.m. Chronic Kidney Disease: Less than 60 mL/min/1.73 square meters End Stage Renal Disease: Less than 15 mL/min/1.73 square meters Glucose [Mass/Vol] 135 mg/dL High 82 - 115 mg/dL ADM SS Hematocrit (Bld) [Volume fraction] 27.0 % Low 40.0 - 52.0 % AH Workflow SS Hemoglobin (Bld) [Mass/Vol] 9.3 G/dL Low 13.0 - 17.5 G/dL AH Workflow SS Lymphocytes (Bld) [#/Vol] 1.5 103/mcL Normal 0.9 - 4.3 10^3/mcL AH Workflow SS Lymphocytes/100 WBC (Bld) 21.0 % Normal 20.0 - 40.0 % Workflow SS MCH (RBC) [Entitic mass] 29.7 pg Normal 27. 0 - 33.0 pg AH Workflow SS MCHC 34.4 G/dL Normal 32.0 - 36.0 G/dL AH Workflow SS MCV (RBC) [Entitic vol] 86.5 fL Normal 81.0 - 100.0 fL Workflow SS Monocytes (Bld) [#/Vol] 0.4 103/mcL Normal 0.1 - 1.4 10^3/mcL AH Workflow SS Monocytes/100 WBC (Bld) 5.1 % Normal 2.0 - 13.0 % AH Workflow SS Neutrophils (Bld) [#/Vol] 5.2 103/mcL Normal 2.3 - 8.1 10^3/mcL AH Workflow SS Neutrophils/100 WBC (Bld) 72.3 % Normal 50.0 - 75.0 % AH Workflow SS Platelet mean volume (Bld) [Entitic vol] 8.9 fL Normal 6.4 - 10.5 fL Workflow SS Platelets (Bld) [#/Vol] 138 103/mcL Low 150 - 450 10^3/mcL AH Workflow SS Potassium [Moles/Vol] 4.7 mmol/L Normal 3.5 - 5.0 mEq/L AH ADM SS RBC (Bld) [#/Vol] 3.13 106/mcL Low 4.50 - 6.0 0 10^6/mcL AH Workflow SS Sodium [Moles/Vol] 139 mmol/L Normal 136 - 145 mEq/L ADM SS Urea nitrogen [Mass/Vol] 103.0 mg/dL Invalid Interpretation Code 8.0 - 22.0 mg/dL ADM SS Urea nitrogen/Creatinine [Mass ratio] 47.9 ratio High 10.0 - 22.0 ratio AH ADM SS WBC (Bld) [#/Vol] 7.2 103/mcL Normal 4.5 - 10.8 10^3/mcL AH Workflow SS XR CHEST 1 VIEWon 06-11-2023 XR CHEST 1 VIEW Normal [facility] ([place]) .Auto Diffon 06-10-2023 Basophil, Absolute 0.0 10 3/mcL Normal 0.0-0.3 [facility] ([place]) Comment on above: Performed By: #### A DIFF, ANEU, PBNP, MG, GFR, CBC, BMP, PRO ####[address] [address] Basophils/100 WBC (Bld) 0.0 % Normal 0.0-2.5 [facility] ([place]) Comment on above: Performed By: #### A DIFF, ANEU, PBNP, MG, GFR, CBC, BMP, PRO ####[address] [address] Eosinophil, Absolute 0.0 10 3/mcL Normal 0.0-0.7 [facility] ([place]) Comment on above: Performed By: #### A DIFF, ANEU, PBNP, MG, GFR, CBC, BMP, PRO ####[address] [address] Eosinophils/100 WBC (Bld) 0.1 % Normal 0.0-6.0 [facility] ([place]) Comment on above: Performed By: #### A DIFF, ANEU, PBNP, MG, GFR, CBC, BMP, PRO ####[address] [address] Lymphocyte, Absolute 0.9 10 3/mcL Normal 0.9-4.3 [facility] ([place]) Comment on above: Performed By: #### A DIFF, ANEU, PBNP, MG, GFR, CBC, BMP, PRO ####[address] [address] Lymphocytes/100 WBC (Bld) 6.8 % Low 20.0-40.0 [facility] ([place]) Comment on above: Performed By: #### A DIFF, ANEU, PBNP, MG, GFR, CBC, BMP, PRO ####[address] [address] Monocyte, Absolute 0.4 10 3/mcL Normal 0.1-1.4 [facility] ([place]) Comment on above: Performed By: #### A DIFF, ANEU, PBNP, MG, GFR, CBC, BMP, PRO ####[address] [address] Monocytes/100 WBC (Bld) 3.2 % Normal 2.0-13.0 [facility] ([place]) Comment on above: Performed By: #### A DIFF, ANEU, PBNP, MG, GFR, CBC, BMP, PRO ####[address] [address] Neutrophils/100 WBC (Bld) 89.9 % High 50.0-75.0 [facility] ([place]) Comment on above: Performed By: #### A DIFF, ANEU, PBNP, MG, GFR, CBC, BMP, PRO ####[address] [address] .GFRon 06-10-2023 GFR 40 ml/min/1.73sqm Normal [facility] ([place]) Comment on above: Result Comment: GFR Population mean for , Non- Americans Ages 20-29 = 116 mL/min/1.73 sq.m. Ages 30-39 = 107 mL/min/1.73 sq.m. Ages 40-49 = 99 mL/min/1.73 sq.m. Ages 50-59 = 93 mL/min/1.73 sq.m. Ages 60-69 = 85 mL/min/1.73 sq.m. Ages 70+ = 75 mL/min/1.73 sq.m.Chronic Kidney Disease: Less than 60 mL/min/1.73 square metersEnd Stage Renal Disease: Less than 15 mL/min/1.73 square meters Performed By: #### A DIFF, ANEU, PBNP, MG, GFR, CBC, BMP, PRO ####[address] [address] GFR Non- 33 ml/min/1.73sqm Normal [facility] ([place]) Comment on above: Result Comment: GFR Population mean for , Non- Americans Ages 20-29 = 116 mL/min/1.73 sq.m. Ages 30-39 = 107 mL/min/1.73 sq.m. Ages 40-49 = 99 mL/min/1.73 sq.m. Ages 50-59 = 93 mL/min/1.73 sq.m. Ages 60-69 = 85 mL/min/1.73 sq.m. Ages 70+ = 75 mL/min/1.73 sq.m.Chronic Kidney Disease: Less than 60 mL/min/1.73 square metersEnd Stage Renal Disease: Less than 15 mL/min/1.73 square meters Performed By: #### A DIFF, ANEU, PBNP, MG, GFR, CBC, BMP, PRO ####[place] [address] .NEUABSon 06-10-2023 Neutrophil, Absolute 12.4 10 3/mcL High 2.3-8.1 [facility] ([place]) Comment on above: Performed By: #### A DIFF, ANEU, PBNP, MG, GFR, CBC, BMP, PRO ####[place] [address] BMPon 06-10-2023 BUN/Creatinine Ratio 49.0 ratio High 10.0-22.0 [facility] ([place]) Comment on above: Performed By: #### A DIFF, ANEU, PBNP, MG, GFR, CBC, BMP, PRO ####[address] [address] Calcium [Mass/Vol] 9.0 mg/dL Normal 8.7-10.4 [facility] ([place]) Comment on above: Performed By: #### A DIFF, ANEU, PBNP, MG, GFR, CBC, BMP, PRO ####[place] [address] Chloride [Moles/Vol] 103 mmol/L Normal 98-110 [facility] ([place]) Comment on above: Performed By: #### A DIFF, ANEU, PBNP, MG, GFR, CBC, BMP, PRO ####[place] [address] CO2 [Moles/Vol] 25 mmol/L Normal 22-32 [facility] ([place]) Comment on above: Performed By: #### A DIFF, ANEU, PBNP, MG, GFR, CBC, BMP, PRO ####[address] [address] Creatinine [Mass/Vol] 1.96 mg/dL High 0.60-1.40 [facility] ([place]) Comment on above: Performed By: #### A DIFF, ANEU, PBNP, MG, GFR, CBC, BMP, PRO ####[address] [address] Electrolyte Balance 6.0 mEq/L Normal 4.0-15.0 [facility] ([place]) Comment on above: Performed By: #### A DIFF, ANEU, PBNP, MG, GFR, CBC, BMP, PRO ####[address] [address] Glucose [Mass/Vol] 212 mg/dL High 82-115 [facility] [place]) Comment on above: Performed By: #### A DIFF, ANEU, PBNP, MG, GFR, CBC, BMP, PRO ####[address] [address] Potassium [Moles/Vol] 4.6 mmol/L Normal 3.5-5.0 [facility] ([place]) Comment on above: Performed By: #### A DIFF, ANEU, PBNP, MG, GFR, CBC, BMP, PRO ####[address] [address] Sodium [Moles/Vol] 134 mmol/L Low 136-145 [facility] [place]) Comment on above: Performed By: #### A DIFF, ANEU, PBNP, MG, GFR, CBC, BMP, PRO ####[address] [address] Urea nitrogen [Mass/Vol] 96.0 mg/dL High 8.0-22.0 [facility] ([place]) Comment on above: Performed By: #### A DIFF, ANEU, PBNP, MG, GFR, CBC, BMP, PRO ####[place] [address] CBCon 06-10-2023 Erythrocyte distribution width (RBC) [Ratio] 15.4 % Normal 11.5-15.5 [facility] ([place]) Comment on above: Performed By: #### A DIFF, ANEU, PBNP, MG, GFR, CBC, BMP, PRO ####[place] [address] Hematocrit (Bld) [Volume fraction] 26.1 % Low 40.0-52.0 [facility] ([place]) Comment on above: Performed By: #### A DIFF, ANEU, PBNP, MG, GFR, CBC, BMP, PRO ####[place] [address] Hgb 8.7 G/dL Low 13.0-17.5 [facility] ([place]) Comment on above: Performed By: #### A DIFF, ANEU, PBNP, MG, GFR, CBC, BMP, PRO ####[place] [address] MCH (RBC) [Entitic mass] 28.8 pg Normal 27.0-33.0 [facility] ([place]) Comment on above: Performed By: #### A DIFF, ANEU, PBNP, MG, GFR, CBC, BMP, PRO ####[place] [address] MCHC 33.3 G/dL Normal 32.0-36.0 [facility] ([place]) Comment on above: Performed By: #### A DIFF, ANEU, PBNP, MG, GFR, CBC, BMP, PRO ####[place] [address] MCV (RBC) [Entitic vol] 86.6 fL Normal 81.0-100.0 [facility] ([place]) Comment on above: Performed By: #### A DIFF, ANEU, PBNP, MG, GFR, CBC, BMP, PRO ####[place] [address] Platelet 139 10 3/mcL Low 150-450 [facility] ([place]) Comment on above: Performed By: #### A DIFF, ANEU, PBNP, MG, GFR, CBC, BMP, PRO ####[place] [address] Platelet mean volume (Bld) [Entitic vol] 9.1 fL Normal 6.4-10.5 [facility] ([place]) Comment on above: Performed By: #### A DIFF, ANEU, PBNP, MG, GFR, CBC, BMP, PRO ####[place] [address] RBC 3.02 10 6/mcL Low 4.50-6.00 [facility] ([place]) Comment on above: Performed By: #### A DIFF, ANEU, PBNP, MG, GFR, CBC, BMP, PRO ####[place] [address] WBC 13.8 10 3/mcL High 4.5-10.8 [facility] ([place]) Comment on above: Performed By: #### A DIFF, ANEU, PBNP, MG, GFR, CBC, BMP, PRO ####[place] [address] LABORATORYOrdered By: Mary Veronica on 06-10-2023 Blood Glucose Testing Reason Routine (06/10/23 8:59 PM) [facility] Work Phone: LABORATORYOrdered By: SYSTEM SYSTEM on 06-10-2023 Basophils (Bld) [#/Vol] 0.0 103/mcL Normal 0.0 - 0.3 10^3/mcL AH Workflow SS Basophils/100 WBC (Bld) 0.0 % Normal 0.0 - 2.5 % AH Workflow SS Calcium [Mass/Vol] 9.0 mg/dL Normal 8.7 - 10. 4 mg/dL ADM SS Chloride [Moles/Vol] 103 mmol/L Normal 98 - 11 0 mEq/L AH ADM SS CO2 [Moles/Vol] 25 mmol/L Normal 22 - 32 mEq/L ADM SS Creatinine [Mass/Vol] 1.96 mg/dL High 0.60 - 1.40 mg/dL ADM SS Electrolyte Balance 6.0 mEq/L Normal 4.0 - 15 .0 mEq/L ADM SS Eosinophils (Bld) [#/Vol] 0.0 103/mcL Normal 0.0 - 0.7 10^3/mcL Workflow SS Eosinophils/100 WBC (Bld) 0.1 % Normal 0.0 - 6.0 % Workflow SS Erythrocyte distribution width (RBC) [Ratio] 15.4 % Normal 11.5 - 15.5 % Workflow GFR/1.73 sq M.predicted among blacks MDRD (S/P/Bld) [Vol rate/Area] 40 ml/min/1.73sqm Invalid Interpretation Code [facility] Comment on above: Interpretive Data: GFR Population mean for , Non- Americans Ages 20-29 = 116 mL/min/1.73 sq.m. Ages 30-39 = 107 mL/min/1.73 sq.m. Ages 40-49 = 99 mL/min/1.73 sq.m. Ages 50-59 = 93 mL/min/1.73 sq.m. Ages 60-69 = 85 mL/min/1.73 sq.m. Ages 70+ = 75 mL/min/1.73 sq.m. Chronic Kidney Disease: Less than 60 mL/min/1.73 square meters End Stage Renal Disease: Less than 15 mL/min/1.73 square meters GFR/1.73 sq M.predicted among non-blacks MDRD (S/P/Bld) [Vol rate/Area] 33 ml/min/1.73sqm Invalid Interpretation Code [facility] Comment on above: Interpretive Data: GFR Population mean for , Non- Americans Ages 20-29 = 116 mL/min/1.73 sq.m. Ages 30-39 = 107 mL/min/1.73 sq.m. Ages 40-49 = 99 mL/min/1.73 sq.m. Ages 50-59 = 93 mL/min/1.73 sq.m. Ages 60-69 = 85 mL/min/1.73 sq.m. Ages 70+ = 75 mL/min/1.73 sq.m. Chronic Kidney Disease: Less than 60 mL/min/1.73 square meters End Stage Renal Disease: Less than 15 mL/min/1.73 square meters Glucose [Mass/Vol] 212 mg/dL High 82 - 115 mg/dL [facility] Hematocrit (Bld) [Volume fraction] 26.1 % Low 40.0 - 52.0 % AH Workflow SS Hemoglobin (Bld) [Mass/Vol] 8.7 G/dL Low 13.0 - 17.5 G/dL AH Workflow SS Lymphocytes (Bld) [#/Vol] 0.9 103/mcL Normal 0.9 - 4.3 10^3/mcL AH Workflow SS Lymphocytes/100 WBC (Bld) 6.8 % Low 20.0 - 40.0 % AH Workflow SS Magnesium [Mass/Vol] 2.5 mg/dL High 1.6 - 2 .4 mg/dL AH ADM SS MCH (RBC) [Entitic mass] 28.8 pg Normal 27. 0 - 33.0 pg AH Workflow SS MCHC 33.3 G/dL Normal 32.0 - 36.0 G/dL Workflow SS MCV (RBC) [Entitic vol] 86.6 fL Normal 81.0 - 100.0 fL Workflow SS Monocytes (Bld) [#/Vol] 0.4 103/mcL Normal 0.1 - 1.4 10^3/mcL AH Workflow SS Monocytes/100 WBC (Bld) 3.2 % Normal 2.0 - 13.0 % Workflow SS Neutrophils (Bld) [#/Vol] 12.4 103/mcL High 2.3 - 8.1 10^3/mcL AH Workflow SS Neutrophils/100 WBC (Bld) 89.9 % High 50.0 - 75.0 % AH Workflow SS Platelet mean volume (Bld) [Entitic vol] 9.1 fL Normal 6.4 - 10.5 fL AH Workflow SS Platelets (Bld) [#/Vol] 139 103/mcL Low 150 - 450 10^3/mcL AH Workflow SS Potassium [Moles/Vol] 4.6 mmol/L Normal 3.5 - 5.0 mEq/L AH ADM SS RBC (Bld) [#/Vol] 3.02 106/mcL Low 4.50 - 6.0 0 10^6/mcL AH Workflow SS Sodium [Moles/Vol] 134 mmol/L Low 136 - 145 mEq/L ADM SS Urea nitrogen [Mass/Vol] 96.0 mg/dL High 8.0 - 22.0 mg/dL AH ADM SS Urea nitrogen/Creatinine [Mass ratio] 49.0 ratio High 10.0 - 22.0 ratio AH ADM SS WBC (Bld) [#/Vol] 13.8 103/mcL High 4.5 - 10.8 10^3/mcL Workflow SS LABORATORYOrdered By: Portia Estes on 06-10-2023 Natriuretic peptide.B prohormone N-Terminal [Mass/Vol] 4528 pg/mL High 0 - 1800 pg/mL Auto Chem SS Comment on above: Interpretive Data: N T-proBNP results of less than 300 pg/mL effectively rules out acute congestive heart failure with 99% negative predictive value. LABORATORYOrdered By: Jennifer Jacobo on 06-10-2023 PT Coag (PPP) [Time] 12.7 s Normal 9.0 - 1 4.2 seconds [facility] SS Comment on above: Interpretive Data: E ffective 09/24/07, Protime results may be affected by some antibiotics (i.e. Ciprofloxacin, Azithromycin, Bactrim) which may potentiate the action of oral anticoagulants, with further increases in Protime/INR. PT International Ratio 1.1 ratio Invalid Interpretation Code [facility] Comment on above: Interpretive Data: T rhonda [employer] (CHEST, 1992, [id number]) recommended therapeutic range for oral anticoagulant therapy is: LOW RISK: Prophylaxis of venous thrombosis INR: 2.0-3.0 Treatment of pulmonary embolism 2.0-3.0 Prevention of systemic embolism 2.0-3.0 HIGH RISK: Mechanical prosthetic valves 2.5-3.5 MGon 06-10-2023 Magnesium [Mass/Vol] 2.5 mg/dL High 1.6-2.4 [facility] ([place]) Comment on above: Performed By: #### A DIFF, ANEU, PBNP, MG, GFR, CBC, BMP, PRO ####[facility] [place] [id number] PBNPon 06-10-2023 Natriuretic peptide B (Bld) [Mass/Vol] 4528 pg/mL High 0-1800 [facility] ([place]) Comment on above: Result Comment: NT-p roBNP results of less than 300 pg/mL effectivelyrules out acute congestive heart failure with 99% negative predictive value. Performed By: #### A DIFF, ANEU, PBNP, MG, GFR, CBC, BMP, PRO ####[address] [address] PROon 06-10-2023 INR Coag (PPP) [Relative time] 1.1 {INR} Normal [facility] ([place]) Comment on above: Result Comment: [employer] (CHEST, 1991, [id number])recommended therapeutic range for oral anticoagulant therapy is:LOW RISK: Prophylaxis of venous thrombosis INR: 2.0-3.0 Treatment of pulmonary embolism 2.0-3.0 Prevention of systemic embolism 2.0-3.0HIGH RISK: Mechanical prosthetic valves 2.5-3.5 Performed By: #### A DIFF, ANEU, PBNP, MG, GFR, CBC, BMP, PRO ####[place] [address] PT Coag (PPP) [Time] 12.7 s Normal 9.0-14.2 [facility] ([place]) Comment on above: Result Comment: Effe ctive 09/24/07, Protime results may be affected by some antibiotics (i.e. Ciprofloxacin, Azithromycin, Bactrim) which may potentiate the action of oral anticoagulants, with further increases in Protime/INR. Performed By: #### A DIFF, ANEU, PBNP, MG, GFR, CBC, BMP, PRO ####[place] [address] .Auto Diffon 06-09-2023 Basophil, Absolute 0.0 10 3/mcL Normal 0.0-0.3 [facility] ([place]) Comment on above: Performed By: #### A DIFF, GFR, CMP, ANEU, CBC ####[place] [address] Basophils/100 WBC (Bld) 0.1 % Normal 0.0-2.5 [facility] ([place]) Comment on above: Performed By: #### A DIFF, GFR, CMP, ANEU, CBC ####[place] [address] Eosinophil, Absolute 0.0 10 3/mcL Normal 0.0-0.7 [facility] ([place]) Comment on above: Performed By: #### A DIFF, GFR, CMP, ANEU, CBC ####[address] [address] Eosinophils/100 WBC (Bld) 0.0 % Normal 0.0-6.0 [facility] ([place]) Comment on above: Performed By: #### A DIFF, GFR, CMP, ANEU, CBC ####[address] [address] Lymphocyte, Absolute 0.4 10 3/mcL Low 0.9-4.3 [facility] ([place]) Comment on above: Performed By: #### A DIFF, GFR, CMP, ANEU, CBC ####[address] [address] Lymphocytes/100 WBC (Bld) 8.7 % Low 20.0-40.0 [facility] ([place]) Comment on above: Performed By: #### A DIFF, GFR, CMP, ANEU, CBC ####[address] [address] Monocyte, Absolute 0.0 10 3/mcL Low 0.1-1.4 [facility] ([place]) Comment on above: Performed By: #### A DIFF, GFR, CMP, ANEU, CBC ####[address] [address] Monocytes/100 WBC (Bld) 0.6 % Low 2.0-13.0 [facility] ([place]) Comment on above: Performed By: #### A DIFF, GFR, CMP, ANEU, CBC ####[address] [address] Neutrophils/100 WBC (Bld) 90.6 % High 50.0-75.0 [facility] ([place]) Comment on above: Performed By: #### A DIFF, GFR, CMP, ANEU, CBC ####[address] [address] Basophil, Absolute 0.0 10 3/mcL Normal 0.0-0.3 [facility] ([place]) Comment on above: Performed By: #### G FR, PBNP, MG, TROPHS, PHOS, ANEU, CBC, BMP, ADIFF ####[address] [address] Basophils/100 WBC (Bld) 0.2 % Normal 0.0-2.5 [facility] ([place]) Comment on above: Performed By: #### G FR, PBNP, MG, TROPHS, PHOS, ANEU, CBC, BMP, ADIFF ####[address] [address] Eosinophil, Absolute 0.0 10 3/mcL Normal 0.0-0.7 [facility] ([place]) Comment on above: Performed By: #### G FR, PBNP, MG, TROPHS, PHOS, ANEU, CBC, BMP, ADIFF ####[address] [address] Eosinophils/100 WBC (Bld) 0.1 % Normal 0.0-6.0 [facility] ([place]) Comment on above: Performed By: #### G FR, PBNP, MG, TROPHS, PHOS, ANEU, CBC, BMP, ADIFF ####[address] [address] Lymphocyte, Absolute 0.4 10 3/mcL Low 0.9-4.3 [facility] ([place]) Comment on above: Performed By: #### G FR, PBNP, MG, TROPHS, PHOS, ANEU, CBC, BMP, ADIFF ####[address] [address] Lymphocytes/100 WBC (Bld) 8.5 % Low 20.0-40.0 [facility] ([place]) Comment on above: Performed By: #### G FR, PBNP, MG, TROPHS, PHOS, ANEU, CBC, BMP, ADIFF ####[address] [address] Monocyte, Absolute 0.0 10 3/mcL Low 0.1-1.4 [facility] ([place]) Comment on above: Performed By: #### G FR, PBNP, MG, TROPHS, PHOS, ANEU, CBC, BMP, ADIFF ####[address] [address] Monocytes/100 WBC (Bld) 0.7 % Low 2.0-13.0 [facility] ([place]) Comment on above: Performed By: #### G FR, PBNP, MG, TROPHS, PHOS, ANEU, CBC, BMP, ADIFF ####[address] [address] Neutrophils/100 WBC (Bld) 90.5 % High 50.0-75.0 [facility] ([place]) Comment on above: Performed By: #### G FR, PBNP, MG, TROPHS, PHOS, ANEU, CBC, BMP, ADIFF ####[address] [address] .GFRon 06-09-2023 GFR Non- 34 ml/min/1.73sqm Normal [facility] ([place]) Comment on above: Result Comment: GFR Population mean for , Non- Americans Ages 20-29 = 116 mL/min/1.73 sq.m. Ages 30-39 = 107 mL/min/1.73 sq.m. Ages 40-49 = 99 mL/min/1.73 sq.m. Ages 50-59 = 93 mL/min/1.73 sq.m. Ages 60-69 = 85 mL/min/1.73 sq.m. Ages 70+ = 75 mL/min/1.73 sq.m.Chronic Kidney Disease: Less than 60 mL/min/1.73 square metersEnd Stage Renal Disease: Less than 15 mL/min/1.73 square meters Performed By: #### A DIFF, GFR, CMP, ANEU, CBC ####[address] [address] GFR 41 ml/min/1.73sqm Normal [facility] ([place]) Comment on above: Result Comment: GFR Population mean for , Non- Americans Ages 20-29 = 116 mL/min/1.73 sq.m. Ages 30-39 = 107 mL/min/1.73 sq.m. Ages 40-49 = 99 mL/min/1.73 sq.m. Ages 50-59 = 93 mL/min/1.73 sq.m. Ages 60-69 = 85 mL/min/1.73 sq.m. Ages 70+ = 75 mL/min/1.73 sq.m.Chronic Kidney Disease: Less than 60 mL/min/1.73 square metersEnd Stage Renal Disease: Less than 15 mL/min/1.73 square meters Performed By: #### A DIFF, GFR, CMP, ANEU, CBC ####[place] [address] GFR Non- 33 ml/min/1.73sqm Normal [facility] ([place]) Comment on above: Result Comment: GFR Population mean for , Non- Americans Ages 20-29 = 116 mL/min/1.73 sq.m. Ages 30-39 = 107 mL/min/1.73 sq.m. Ages 40-49 = 99 mL/min/1.73 sq.m. Ages 50-59 = 93 mL/min/1.73 sq.m. Ages 60-69 = 85 mL/min/1.73 sq.m. Ages 70+ = 75 mL/min/1.73 sq.m.Chronic Kidney Disease: Less than 60 mL/min/1.73 square metersEnd Stage Renal Disease: Less than 15 mL/min/1.73 square meters Performed By: #### G FR, PBNP, MG, TROPHS, PHOS, ANEU, CBC, BMP, ADIFF ####[place] [address] GFR 40 ml/min/1.73sqm [facility] ([place]) Comment on above: Result Comment: GFR Population mean for , Non- Americans Ages 20-29 = 116 mL/min/1.73 sq.m. Ages 30-39 = 107 mL/min/1.73 sq.m. Ages 40-49 = 99 mL/min/1.73 sq.m. Ages 50-59 = 93 mL/min/1.73 sq.m. Ages 60-69 = 85 mL/min/1.73 sq.m. Ages 70+ = 75 mL/min/1.73 sq.m.Chronic Kidney Disease: Less than 60 mL/min/1.73 square metersEnd Stage Renal Disease: Less than 15 mL/min/1.73 square meters Performed By: #### G FR, PBNP, MG, TROPHS, PHOS, ANEU, CBC, BMP, ADIFF ####[address] [address] .NEUABSon 06-09-2023 Neutrophil, Absolute 4.1 10 3/mcL Normal 2.3-8.1 [facility] ([place]) Comment on above: Performed By: #### A DIFF, GFR, CMP, ANEU, CBC ####[place] [address] Neutrophil, Absolute 4.3 10 3/mcL Normal 2.3-8.1 [facility] ([place]) Comment on above: Performed By: #### G FR, PBNP, MG, TROPHS, PHOS, ANEU, CBC, BMP, ADIFF ####[place] [address] ABO/Rh (Gel)on 06-09-2023 ABO/Rh Interp Negative Invalid Interpretation Code [facility] ([place]) Comment on above: Performed By: #### A BSGEL, ABOGEL ####[place] [address] ABS (Gel)on 06-09-2023 ABSC Interp (Gel) Negative Normal [facility] ([place]) Comment on above: Performed By: #### A BSGEL, ABOGEL ####[place] [address] BMPon 06-09-2023 BUN/Creatinine Ratio 39.5 ratio High 10.0-22.0 [facility] ([place]) Comment on above: Performed By: #### G FR, PBNP, MG, TROPHS, PHOS, ANEU, CBC, BMP, ADIFF ####[place] [address] Calcium [Mass/Vol] 8.6 mg/dL Low 8.7-10.4 [facility] [place] Comment on above: Performed By: #### G FR, PBNP, MG, TROPHS, PHOS, ANEU, CBC, BMP, ADIFF ####[place] [address] Chloride [Moles/Vol] 107 mmol/L Normal 98-110 [facility] ([place]) Comment on above: Performed By: #### G FR, PBNP, MG, TROPHS, PHOS, ANEU, CBC, BMP, ADIFF ####[address] [address] CO2 [Moles/Vol] 23 mmol/L Normal 22-32 [facility] ([place]) Comment on above: Performed By: #### G FR, PBNP, MG, TROPHS, PHOS, ANEU, CBC, BMP, ADIFF ####[address] [address] Creatinine [Mass/Vol] 1.95 mg/dL High 0.60-1.40 [facility] ([place]) Comment on above: Performed By: #### G FR, PBNP, MG, TROPHS, PHOS, ANEU, CBC, BMP, ADIFF ####[place] [address] Electrolyte Balance 9.0 mEq/L Normal 4.0-15.0 [facility] ([place]) Comment on above: Performed By: #### G FR, PBNP, MG, TROPHS, PHOS, ANEU, CBC, BMP, ADIFF ####[address] [address] Glucose [Mass/Vol] 366 mg/dL High 82-115 [facility] ([place]) Comment on above: Performed By: #### G FR, PBNP, MG, TROPHS, PHOS, ANEU, CBC, BMP, ADIFF ####[address] [address] Potassium [Moles/Vol] 4.7 mmol/L Normal 3.5-5.0 [facility] ([place]) Comment on above: Performed By: #### G FR, PBNP, MG, TROPHS, PHOS, ANEU, CBC, BMP, ADIFF ####[address] [address] Sodium [Moles/Vol] 139 mmol/L Normal 136-145 [facility] ([place]) Comment on above: Performed By: #### G FR, PBNP, MG, TROPHS, PHOS, ANEU, CBC, BMP, ADIFF ####[address] [address] Urea nitrogen [Mass/Vol] 77.0 mg/dL High 8.0-22.0 [facility] ([place]) Comment on above: Performed By: #### G FR, PBNP, MG, TROPHS, PHOS, ANEU, CBC, BMP, ADIFF ####[place] [address] [facility]Con 06-09-2023 Erythrocyte distribution width (RBC) [Ratio] 15.7 % High 11.5-15.5 [facility] ([place]) Comment on above: Performed By: #### A DIFF, GFR, CMP, ANEU, CBC ####[place] [address] Hematocrit (Bld) [Volume fraction] 20.8 % Low 40.0-52.0 [facility] ([place]) Comment on above: Performed By: #### A DIFF, GFR, CMP, ANEU, CBC ####[place] [address] Hgb 7.1 G/dL Low 13.0-17.5 [facility] ([place]) Comment on above: Performed By: #### A DIFF, GFR, CMP, ANEU, CBC ####[place] [address] MCH (RBC) [Entitic mass] 29.1 pg Normal 27.0-33.0 [facility] ([place]) Comment on above: Performed By: #### A DIFF, GFR, CMP, ANEU, CBC ####[place] [address] MCHC 34.1 G/dL Normal 32.0-36.0 [facility] ([place]) Comment on above: Performed By: #### A DIFF, GFR, CMP, ANEU, CBC ####[place] [address] MCV (RBC) [Entitic vol] 85.3 fL Normal 81.0-100.0 [facility] ([place]) Comment on above: Performed By: #### A DIFF, GFR, CMP, ANEU, CBC ####[place] [address] Platelet 108 10 3/mcL Low 150-450 [facility] ([place]) Comment on above: Performed By: #### A DIFF, GFR, CMP, ANEU, CBC ####[place] [address] Platelet mean volume (Bld) [Entitic vol] 9.0 fL Normal 6.4-10.5 [facility] ([place]) Comment on above: Performed By: #### A DIFF, GFR, CMP, ANEU, CBC ####[place] [address] RBC 2.43 10 6/mcL Low 4.50-6.00 [facility] ([place]) Comment on above: Performed By: #### A DIFF, GFR, CMP, ANEU, CBC ####[place] [address] WBC 4.5 10 3/mcL Normal 4.5-10.8 [facility] ([place]) Comment on above: Performed By: #### A DIFF, GFR, CMP, ANEU, CBC ####[place] [address] Erythrocyte distribution width (RBC) [Ratio] 15.8 % High 11.5-15.5 [facility] ([place]) Comment on above: Performed By: #### G FR, PBNP, MG, TROPHS, PHOS, ANEU, CBC, BMP, ADIFF ####[place] [address] Hematocrit (Bld) [Volume fraction] 21.5 % Low 40.0-52.0 [facility] ([place]) Comment on above: Performed By: #### G FR, PBNP, MG, TROPHS, PHOS, ANEU, CBC, BMP, ADIFF ####[place] [address] Hgb 7.2 G/dL Low 13.0-17.5 [facility] ([place]) Comment on above: Performed By: #### G FR, PBNP, MG, TROPHS, PHOS, ANEU, CBC, BMP, ADIFF ####[address] [place] [address] MCH (RBC) [Entitic mass] 28.9 pg Normal 27.0-33.0 [facility] ([place]) Comment on above: Performed By: #### G FR, PBNP, MG, TROPHS, PHOS, ANEU, CBC, BMP, ADIFF ####[place] [address] MCHC 33.7 G/dL Normal 32.0-36.0 [facility] ([place]) Comment on above: Performed By: #### G FR, PBNP, MG, TROPHS, PHOS, ANEU, CBC, BMP, ADIFF ####[place] [address] MCV (RBC) [Entitic vol] 85.8 fL Normal 81.0-100.0 [facility] ([place]) Comment on above: Performed By: #### G FR, PBNP, MG, TROPHS, PHOS, ANEU, CBC, BMP, ADIFF ####[place] [address] Platelet 110 10 3/mcL Low 150-450 [facility] ([place]) Comment on above: Performed By: #### G FR, PBNP, MG, TROPHS, PHOS, ANEU, CBC, BMP, ADIFF ####[place] [address] Platelet mean volume (Bld) [Entitic vol] 8.8 fL Normal 6.4-10.5 [facility] ([place]) Comment on above: Performed By: #### G FR, PBNP, MG, TROPHS, PHOS, ANEU, CBC, BMP, ADIFF ####[place] [address] RBC 2.50 10 6/mcL Low 4.50-6.00 [facility] ([place]) Comment on above: Performed By: #### G FR, PBNP, MG, TROPHS, PHOS, ANEU, CBC, BMP, ADIFF ####[place] [address] WBC 4.7 10 3/mcL Normal 4.5-10.8 [facility] ([place]) Comment on above: Performed By: #### G FR, PBNP, MG, TROPHS, PHOS, ANEU, CBC, BMP, ADIFF ####[place] [address] CMPon 06-09-2023 Albumin Level 2.6 G/dL Low 3.2-4.8 [facility] ([place]) Comment on above: Performed By: #### A DIFF, GFR, CMP, ANEU, CBC ####[place] [address] Albumin/Globulin [Mass ratio] 0.8 {ratio} Low 0.9-1.6 [facility] ([place]) Comment on above: Performed By: #### A DIFF, GFR, CMP, ANEU, CBC ####[place] [address] ALP [Catalytic activity/Vol] 61 U/L Normal 38-126 [facility] ([place]) Comment on above: Performed By: #### A DIFF, GFR, CMP, ANEU, CBC ####[place] [address] ALT [Catalytic activity/Vol] 16 U/L Normal 12-55 [facility] ([place]) Comment on above: Performed By: #### A DIFF, GFR, CMP, ANEU, CBC ####[place] [address] AST [Catalytic activity/Vol] 14 U/L Normal 8-34 [facility] ([place]) Comment on above: Performed By: #### A DIFF, GFR, CMP, ANEU, CBC ####[place] [address] Bili Total 0.40 mg/dL Normal 0.20-1.20 [facility] ([place]) Comment on above: Result Comment: Use of this assay is not recommended for patients undergoing treatment with eltrombopag due to the potential for falsely elevated results. Performed By: #### A DIFF, GFR, CMP, ANEU, CBC ####[place] [address] BUN/Creatinine Ratio 41.1 ratio High 10.0-22.0 [facility] ([place]) Comment on above: Performed By: #### A DIFF, GFR, CMP, ANEU, CBC ####[address] [address] Calcium [Mass/Vol] 8.8 mg/dL Normal 8.7-10.4 [facility] [place]) Comment on above: Performed By: #### A DIFF, GFR, CMP, ANEU, CBC ####[address] [address] Chloride [Moles/Vol] 104 mmol/L Normal 98-110 [facility] ([place]) Comment on above: Performed By: #### A DIFF, GFR, CMP, ANEU, CBC ####[address] [address] CO2 [Moles/Vol] 28 mmol/L Normal 22-32 [facility] ([place]) Comment on above: Performed By: #### A DIFF, GFR, CMP, ANEU, CBC ####[address] [address] Creatinine [Mass/Vol] 1.92 mg/dL High 0.60-1.40 [facility] ([place]) Comment on above: Performed By: #### A DIFF, GFR, CMP, ANEU, CBC ####[place] [address] Electrolyte Balance 9.0 mEq/L Normal 4.0-15.0 [facility] ([place]) Comment on above: Performed By: #### A DIFF, GFR, CMP, ANEU, CBC ####[address] [address] Globulin 3.3 G/dL Normal 1.5-3.8 [facility] ([place]) Comment on above: Performed By: #### A DIFF, GFR, CMP, ANEU, CBC ####[address] [address] Glucose [Mass/Vol] 323 mg/dL High 82-115 [facility] [place]) Comment on above: Performed By: #### A DIFF, GFR, CMP, ANEU, CBC ####[place] [address] Potassium [Moles/Vol] 4.5 mmol/L Normal 3.5-5.0 [facility] ([place]) Comment on above: Performed By: #### A DIFF, GFR, CMP, ANEU, CBC ####[address] [address] Sodium [Moles/Vol] 141 mmol/L Normal 136-145 [facility] [place]) Comment on above: Performed By: #### A DIFF, GFR, CMP, ANEU, CBC ####[place] [address] Total Protein 5.9 G/dL Normal 5.7-8.2 [facility] ([place]) Comment on above: Result Comment: No te - New Reference Range in effect 19 Performed By: #### A DIFF, GFR, CMP, ANEU, CBC ####[place] [address] Urea nitrogen [Mass/Vol] 79.0 mg/dL High 8.0-22.0 [facility] ([place]) Comment on above: Performed By: #### A DIFF, GFR, CMP, ANEU, CBC ####[address] [address] HHon 06-09-2023 Hematocrit (Bld) [Volume fraction] 24.5 % Low 40.0-52.0 [facility] ([place]) Comment on above: Performed By: #### H H ####[address] [address] Hgb 8.4 G/dL Low 13.0-17.5 [facility] ([place]) Comment on above: Performed By: #### H H ####[address] [address] LABORATORYOrdered By: Francisco Brown on 06-09-2023 Blood Glucose Testing Reason Routine (06/09/23 9:08 PM) [facility] Work Phone: LABORATORYOrdered By: Delia Mueller on 06-09-2023 Blood Glucose Interventions Administered agent to decrease blood sugar (06/09/23 4:35 PM) [facility] Work Phone: Blood Glucose Testing Reason Routine (06/09/23 4:35 PM) [facility] Work Phone: Blood Glucose Interventions Administered agent to decrease blood sugar (06/09/23 12:12 PM) [facility] Work Phone: Blood Glucose Interventions Administered agent to decrease blood sugar (06/09/23 8:10 AM) [facility] Work Phone: LABORATORYOrdered By: SYSTEM SYSTEM on 06-09-2023 Hematocrit (Bld) [Volume fraction] 24.5 % Low 40.0 - 52.0 % Workflow SS Hemoglobin (Bld) [Mass/Vol] 8.4 G/dL Low 13.0 - 17.5 G/dL Workflow SS Albumin BCP dye [Mass/Vol] 2.6 G/dL Low 3.2 - 4.8 G/dL ADM SS Albumin/Globulin [Mass ratio] 0.8 {ratio} Low 0.9 - 1.6 ratio ADM SS ALP [Catalytic activity/Vol] 61 U/L Normal 38 - 126 U/L ADM SS ALT No additional P-5'-P [Catalytic activity/Vol] 16 U/L Normal 12 - 55 U/L ADM SS AST [Catalytic activity/Vol] 14 U/L Normal 8 - 34 U/L ADM SS Basophils (Bld) [#/Vol] 0.0 103/mcL Normal 0.0 - 0.3 10^3/mcL Workflow SS Basophils/100 WBC (Bld) 0.1 % Normal 0.0 - 2.5 % Workflow SS Bilirubin [Mass/Vol] 0.40 mg/dL Normal 0.20 - 1.20 mg/dL ADM SS Comment on above: Interpretive Data: U se of this assay is not recommended for patients undergoing treatment with eltrombopag due to the potential for falsely elevated results. Calcium [Mass/Vol] 8.8 mg/dL Normal 8.7 - 10. 4 mg/dL ADM SS Chloride [Moles/Vol] 104 mmol/L Normal 98 - 11 0 mEq/L ADM SS CO2 [Moles/Vol] 28 mmol/L Normal 22 - 32 mEq/L ADM SS Creatinine [Mass/Vol] 1.92 mg/dL High 0.60 - 1.40 mg/dL AH ADM SS Electrolyte Balance 9.0 mEq/L Normal 4.0 - 15 .0 mEq/L ADM SS Eosinophils (Bld) [#/Vol] 0.0 103/mcL Normal 0.0 - 0.7 10^3/mcL Workflow SS Eosinophils/100 WBC (Bld) 0.0 % Normal 0.0 - 6.0 % Workflow SS Erythrocyte distribution width (RBC) [Ratio] 15.7 % High 11.5 - 15.5 % Workflow SS GFR/1.73 sq M.predicted among blacks MDRD (S/P/Bld) [Vol rate/Area] 41 ml/min/1.73sqm Invalid Interpretation Code ADM Comment on above: Interpretive Data: GFR Population mean for , Non- Americans Ages 20-29 = 116 mL/min/1.73 sq.m. Ages 30-39 = 107 mL/min/1.73 sq.m. Ages 40-49 = 99 mL/min/1.73 sq.m. Ages 50-59 = 93 mL/min/1.73 sq.m. Ages 60-69 = 85 mL/min/1.73 sq.m. Ages 70+ = 75 mL/min/1.73 sq.m. Chronic Kidney Disease: Less than 60 mL/min/1.73 square meters End Stage Renal Disease: Less than 15 mL/min/1.73 square meters GFR/1.73 sq M.predicted among non-blacks MDRD (S/P/Bld) [Vol rate/Area] 34 ml/min/1.73sqm Invalid Interpretation Code [facility] Comment on above: Interpretive Data: GFR Population mean for , Non- Americans Ages 20-29 = 116 mL/min/1.73 sq.m. Ages 30-39 = 107 mL/min/1.73 sq.m. Ages 40-49 = 99 mL/min/1.73 sq.m. Ages 50-59 = 93 mL/min/1.73 sq.m. Ages 60-69 = 85 mL/min/1.73 sq.m. Ages 70+ = 75 mL/min/1.73 sq.m. Chronic Kidney Disease: Less than 60 mL/min/1.73 square meters End Stage Renal Disease: Less than 15 mL/min/1.73 square meters Globulin 3.3 G/dL Normal 1.5 - 3.8 G/dL AH ADM SS Glucose [Mass/Vol] 323 mg/dL High 82 - 115 mg/dL AH ADM SS Lymphocytes (Bld) [#/Vol] 0.4 103/mcL Low 0.9 - 4.3 10^3/mcL AH Workflow SS Lymphocytes/100 WBC (Bld) 8.7 % Low 20.0 - 40.0 % AH Workflow SS MCH (RBC) [Entitic mass] 29.1 pg Normal 27. 0 - 33.0 pg AH Workflow SS MCHC 34.1 G/dL Normal 32.0 - 36.0 G/dL AH Workflow SS MCV (RBC) [Entitic vol] 85.3 fL Normal 81.0 - 100.0 fL AH Workflow SS Monocytes (Bld) [#/Vol] 0.0 103/mcL Low 0.1 - 1.4 10^3/mcL AH Workflow SS Monocytes/100 WBC (Bld) 0.6 % Low 2.0 - 13.0 % AH Workflow SS Neutrophils (Bld) [#/Vol] 4.1 103/mcL Normal 2.3 - 8.1 10^3/mcL AH Workflow SS Neutrophils/100 WBC (Bld) 90.6 % High 50.0 - 75.0 % AH Workflow SS Platelet mean volume (Bld) [Entitic vol] 9.0 fL Normal 6.4 - 10.5 fL AH Workflow SS Platelets (Bld) [#/Vol] 108 103/mcL Low 150 - 450 10^3/mcL AH Workflow SS Potassium [Moles/Vol] 4.5 mmol/L Normal 3.5 - 5.0 mEq/L AH ADM SS Protein [Mass/Vol] 5.9 G/dL Normal 5.7 - 8.2 G/dL AH ADM SS Comment on above: Interpretive Data: * *Note - New Reference Range in effect 19 RBC (Bld) [#/Vol] 2.43 106/mcL Low 4.50 - 6.0 0 10^6/mcL AH Workflow SS Sodium [Moles/Vol] 141 mmol/L Normal 136 - 145 mEq/L AH ADM SS Urea nitrogen [Mass/Vol] 79.0 mg/dL High 8.0 - 22.0 mg/dL AH ADM SS Urea nitrogen/Creatinine [Mass ratio] 41.1 ratio High 10.0 - 22.0 ratio AH ADM SS WBC (Bld) [#/Vol] 4.5 103/mcL Normal 4.5 - 10.8 10^3/mcL Workflow SS Magnesium [Mass/Vol] 1.5 mg/dL Low 1.6 - 2 .4 mg/dL AH ADM SS Phosphate [Mass/Vol] 2.6 mg/dL Normal 2.4 - 5 .1 mg/dL AH ADM SS Comment on above: Interpretive Data: * *Note - New Reference Range in effect 19 Troponin I.cardiac DL <= 0.01 ng/mL [Mass/Vol] 23 ng/L Normal 0 - 54 ng/L AH ADM SS Comment on above: Interpretive Data: High Sensitive Troponin I Reference Ranges: Female: 0-34 ng/L Male: 0-54 ng/L Testing performed on FreshT IM analyzer using direct chemiluminescent technology. LABORATORYOrdered By: Yuliana Simental on 06-09-2023 ABO and Rh group Nom (Bld) Blood group A Rh(D) negative Invalid Interpretation Code AH BB Auto SS Blood group antibody screen Ql Negative ABSC (06/09/23 8:17 AM) Normal AH BB Auto SS LABORATORYOrdered By: Javier Aparicio on 06-09-2023 RBC Product Ready RBC Ready for Pickup (06/09/23 6:44 AM) Normal BB Manual SS LABORATORYOrdered By: Tamara Montaño on 06-09-2023 Natriuretic peptide.B prohormone N-Terminal [Mass/Vol] 2824 pg/mL High 0 - 1800 pg/mL Auto Chem SS Comment on above: Interpretive Data: N T-proBNP results of less than 300 pg/mL effectively rules out acute congestive heart failure with 99% negative predictive value. MGon 06-09-2023 Magnesium [Mass/Vol] 1.5 mg/dL Low 1.6-2.4 [facility] ([place]) Comment on above: Performed By: #### G FR, PBNP, MG, TROPHS, PHOS, ANEU, CBC, BMP, ADIFF ####[place] [address] PBNPon 06-09-2023 Natriuretic peptide B (Bld) [Mass/Vol] 2824 pg/mL High 0-1800 [facility] ([place]) Comment on above: Result Comment: NT-p roBNP results of less than 300 pg/mL effectivelyrules out acute congestive heart failure with 99% negative predictive value. Performed By: #### G FR, PBNP, MG, TROPHS, PHOS, ANEU, CBC, BMP, ADIFF ####[place] [address] PHOSon 06-09-2023 Phosphate [Mass/Vol] 2.6 mg/dL Normal 2.4-5.1 [facility] ([place]) Comment on above: Result Comment: No te - New Reference Range in effect 19 Performed By: #### G FR, PBNP, MG, TROPHS, PHOS, ANEU, CBC, BMP, ADIFF ####[place] [address] RBC (Product)on 06-09-2023 RBC Product Ready RBC Ready for Pickup Normal [facility] ([place]) Comment on above: Performed By: #### R BCP ####[address] 06-09-2023 High Sensitivity Troponin I 23 ng/L Normal 0-54 [facility] ([place]) Comment on above: Result Comment: High Sensitive Troponin I Reference Ranges:Female: 0-34 ng/LMale: 0-54 ng/LTesting performed on FreshT IM analyzer using direct chemiluminescent technology. Performed By: #### G FR, PBNP, MG, TROPHS, PHOS, ANEU, CBC, BMP, ADIFF ####[place] [address] XR CHEST 1 VIEWon 06-09-2023 XR CHEST 1 VIEW Normal [facility] ([place]) .Auto Diffon 06-08-2023 Basophil, Absolute 0.0 10 3/mcL Normal 0.0-0.2 [facility] ([place]) Comment on above: Performed By: #### M DW, TROPHS, ANEU, CBC, ADIFF ####[address] [address] Basophils/100 WBC (Bld) 0.7 % Normal 0.0-2.5 [facility] ([place]) Comment on above: Performed By: #### M DW, TROPHS, ANEU, CBC, ADIFF ####[address] [place], [place] [address] Eosinophil, Absolute 0.1 10 3/mcL Normal 0.0-0.4 [facility] ([place]) Comment on above: Performed By: #### M DW, TROPHS, ANEU, CBC, ADIFF ####[address] [place], [place] [address] Eosinophils/100 WBC (Bld) 2.2 % Normal 0.0-7.0 [facility] ([place]) Comment on above: Performed By: #### M DW, TROPHS, ANEU, CBC, ADIFF ####[address] [place], [place] [address] Lymphocyte, Absolute 1.0 10 3/mcL Normal 0.8-3.9 [facility] ([place]) Comment on above: Performed By: #### M DW, TROPHS, ANEU, CBC, ADIFF ####[address] [place], [place] [address] Lymphocytes/100 WBC (Bld) 15.6 % Normal 10.0-50.0 [facility] ([place]) Comment on above: Performed By: #### M DW, TROPHS, ANEU, CBC, ADIFF ####[address] [place], [place] [address] Monocyte, Absolute 0.4 10 3/mcL Normal 0.2-1.0 [facility] ([place]) Comment on above: Performed By: #### M DW, TROPHS, ANEU, CBC, ADIFF ####[address] [place], [place] [address] Monocytes/100 WBC (Bld) 5.9 % Normal 1.7-13.0 [facility] ([place]) Comment on above: Performed By: #### M DW, TROPHS, ANEU, CBC, ADIFF ####[address] [place], [place] [address] Neutrophils/100 WBC (Bld) 75.6 % Normal 37.0-80.0 [facility] ([place]) Comment on above: Performed By: #### M DW, TROPHS, ANEU, CBC, ADIFF ####[address] [place], [place] [address] Basophil, Absolute 0.0 10 3/mcL Normal 0.0-0.2 [facility] ([place]) Comment on above: Performed By: #### C BC, PBNP, CMP, ADIFF, GFR, ANEU ####[address] [place], [place] [address] Basophils/100 WBC (Bld) 0.5 % Normal 0.0-2.5 [facility] ([place]) Comment on above: Performed By: #### C BC, PBNP, CMP, ADIFF, GFR, ANEU ####[address] [place], [place] [address] Eosinophil, Absolute 0.2 10 3/mcL Normal 0.0-0.4 [facility] ([place]) Comment on above: Performed By: #### C BC, PBNP, CMP, ADIFF, GFR, ANEU ####[address] [place], [place] [address] Eosinophils/100 WBC (Bld) 2.3 % Normal 0.0-7.0 [facility] ([place]) Comment on above: Performed By: #### C BC, PBNP, CMP, ADIFF, GFR, ANEU ####[address] [place], [place] [address] Lymphocyte, Absolute 1.0 10 3/mcL Normal 0.8-3.9 [facility] ([place]) Comment on above: Performed By: #### C BC, PBNP, CMP, ADIFF, GFR, ANEU ####[address] [place], [place] [address] Lymphocytes/100 WBC (Bld) 15.5 % Normal 10.0-50.0 [facility] ([place]) Comment on above: Performed By: #### C BC, PBNP, CMP, ADIFF, GFR, ANEU ####[address] [place], [place] [address] Monocyte, Absolute 0.4 10 3/mcL Normal 0.2-1.0 [facility] ([place]) Comment on above: Performed By: #### C BC, PBNP, CMP, ADIFF, GFR, ANEU ####[address] [place], [place] [address] Monocytes/100 WBC (Bld) 6.6 % Normal 1.7-13.0 [facility] ([place]) Comment on above: Performed By: #### C BC, PBNP, CMP, ADIFF, GFR, ANEU ####[address] [place], [place] [address] Neutrophils/100 WBC (Bld) 75.1 % Normal 37.0-80.0 [facility] ([place]) Comment on above: Performed By: #### C BC, PBNP, CMP, ADIFF, GFR, ANEU ####[address] [place], [place] [address] .GFRon 06-08-2023 GFR Non- 28 ml/min/1.73sqm Normal [facility] ([place]) Comment on above: Result Comment: GFR Population mean for , Non- Americans Ages 20-29 = 116 mL/min/1.73 sq.m. Ages 30-39 = 107 mL/min/1.73 sq.m. Ages 40-49 = 99 mL/min/1.73 sq.m. Ages 50-59 = 93 mL/min/1.73 sq.m. Ages 60-69 = 85 mL/min/1.73 sq.m. Ages 70+ = 75 mL/min/1.73 sq.m.Chronic Kidney Disease: Less than 60 mL/min/1.73 square metersEnd Stage Renal Disease: Less than 15 mL/min/1.73 square meters Performed By: #### C BC, PBNP, CMP, ADIFF, GFR, ANEU ####[address] [place], [place] [address] GFR 34 ml/min/1.73sqm Normal [facility] ([place]) Comment on above: Result Comment: GFR Population mean for , Non- Americans Ages 20-29 = 116 mL/min/1.73 sq.m. Ages 30-39 = 107 mL/min/1.73 sq.m. Ages 40-49 = 99 mL/min/1.73 sq.m. Ages 50-59 = 93 mL/min/1.73 sq.m. Ages 60-69 = 85 mL/min/1.73 sq.m. Ages 70+ = 75 mL/min/1.73 sq.m.Chronic Kidney Disease: Less than 60 mL/min/1.73 square metersEnd Stage Renal Disease: Less than 15 mL/min/1.73 square meters Performed By: #### C BC, PBNP, CMP, ADIFF, GFR, ANEU ####[address] [place], [place] [address] .MDWon 06-08-2023 Monocyte Distribution Width 19.65 Normal 0.00-20.00 [facility] ([place]) Comment on above: Result Comment: For ED adult patients suspected of sepsis, MDW<=20.0 does not rule out sepsis or risk of sepsis Performed By: #### M DW, TROPHS, ANEU, CBC, ADIFF ####[address] [place], [place] [address] .NEUABSon 06-08-2023 Neutrophil, Absolute 5.0 10 3/mcL Normal 2.9-6.2 [facility] ([place]) Comment on above: Performed By: #### M DW, TROPHS, ANEU, CBC, ADIFF ####[address] [place], [place] [address] Neutrophil, Absolute 5.1 10 3/mcL Normal 2.9-6.2 [facility] ([place]) Comment on above: Performed By: #### C BC, PBNP, CMP, ADIFF, GFR, ANEU ####[address] [place], [place] [address] ABGon 06-08-2023 Base excess Calc (Bld) [Moles/Vol] 2.0 mmol/L Normal -2.4-2.3 [facility] ([place]) Comment on above: Order Comment: On ro om air Performed By: #### A BG ####[address] [place], [place] [address] CO2 [Moles/Vol] 28 mmol/L High 19-24 [facility] ([place]) Comment on above: Order Comment: On ro om air Performed By: #### A BG ####[address] [place], [place] [address] HCO3 (Bld) [Moles/Vol] 26.7 mmol/L High 22.0-26.0 [facility] ([place]) Comment on above: Order Comment: On ro om air Performed By: #### A BG ####[address] [place], [place] [address] Oxygen (Bld) [Partial pressure] 147.0 mm[Hg] High 80.0-100.0 [facility] ([place]) Comment on above: Order Comment: On ro om air Performed By: #### A BG ####[address] [place], [place] [address] Oxygen saturation in Blood 99 % High 95-98 [facility] ([place]) Comment on above: Order Comment: On ro om air Performed By: #### A BG ####[address] [place], [place] [address] pCO2 40.4 mmHg Normal 35.0-45.0 [facility] ([place]) Comment on above: Order Comment: On ro om air Performed By: #### A BG ####[address] [place], [place] [address] pH (Bld) 7.43 [pH] Normal 7.35-7.45 [facility] ([place]) Comment on above: Order Comment: On ro om air Performed By: #### A BG ####[address] [place], [place] [address] CBCon 06-08-2023 Erythrocyte distribution width (RBC) [Ratio] 15.6 % High 11.5-14.5 [facility] ([place]) Comment on above: Performed By: #### M DW, TROPHS, ANEU, CBC, ADIFF ####[address] [place], [place] [address] Hematocrit (Bld) [Volume fraction] 22.5 % Low 42.0-52.0 [facility] ([place]) Comment on above: Performed By: #### M TIFFANY TROPHS, ANEU, CBC, ADIFF ####[address] [place], [place] [address] Hgb 7.6 G/dL Low 14.0-18.0 [facility] ([place]) Comment on above: Performed By: #### M TIFFANY TROPHS, ANEU, CBC, ADIFF ####[address] [place], [place] [address] MCH (RBC) [Entitic mass] 29.0 pg Normal 27.0-31.2 [facility] ([place]) Comment on above: Performed By: #### M TIFFANY TROPHS, ANEU, CBC, ADIFF ####[address] [place], [place] [address] MCHC 33.6 G/dL Normal 31.8-35.4 [facility] ([place]) Comment on above: Performed By: #### Elidia ALLEN TROPHS, ANEU, CBC, ADIFF ####[address] [place], [place] [address] MCV (RBC) [Entitic vol] 86.3 fL Normal 80.0-94.0 [facility] ([place]) Comment on above: Performed By: #### M TIFFANY TROPHS, ANEU, CBC, ADIFF ####[address] [place], [place] [address] Platelet 140 10 3/mcL Normal 130-400 [facility] ([place]) Comment on above: Performed By: #### M TIFFANY TROPHS, ANEU, CBC, ADIFF ####[address] [place], [place] [address] Platelet mean volume (Bld) [Entitic vol] 8.9 fL Normal 7.4-10.4 [facility] ([place]) Comment on above: Performed By: #### Elidia ALLEN TROPHS, ANEU, CBC, ADIFF ####[address] [place], [place] [address] RBC 2.60 10 6/mcL Low 4.04-6.13 [facility] ([place]) Comment on above: Performed By: #### M DW, TROPHS, ANEU, CBC, ADIFF ####[address] [place], [place] [address] WBC 6.6 10 3/mcL Normal 4.6-10.8 [facility] ([place]) Comment on above: Performed By: #### M DW, TROPHS, ANEU, CBC, ADIFF ####[id number] [place], [place] [address] Erythrocyte distribution width (RBC) [Ratio] 15.3 % High 11.5-14.5 [facility] ([place]) Comment on above: Performed By: #### C BC, PBNP, CMP, ADIFF, GFR, ANEU ####[address] [place], [place] [address] Hematocrit (Bld) [Volume fraction] 23.0 % Low 42.0-52.0 [facility] ([place]) Comment on above: Performed By: #### C BC, PBNP, CMP, ADIFF, GFR, ANEU ####[address] [place], [place] [address] Hgb 7.7 G/dL Low 14.0-18.0 [facility] ([place]) Comment on above: Performed By: #### C BC, PBNP, CMP, ADIFF, GFR, ANEU ####[id number] [place], [place] [address] MCH (RBC) [Entitic mass] 29.0 pg Normal 27.0-31.2 [facility] ([place]) Comment on above: Performed By: #### C BC, PBNP, CMP, ADIFF, GFR, ANEU ####[address] [place], [place] [address] MCHC 33.5 G/dL Normal 31.8-35.4 [facility] ([place]) Comment on above: Performed By: #### C BC, PBNP, CMP, ADIFF, GFR, ANEU ####[address] [place], [place] [address] MCV (RBC) [Entitic vol] 86.4 fL Normal 80.0-94.0 A [facility] ([place]) Comment on above: Performed By: #### C BC, PBNP, CMP, ADIFF, GFR, ANEU ####[address] [place], [place] [address] Platelet 141 10 3/mcL Normal 130-400 [facility] ([place]) Comment on above: Performed By: #### C BC, PBNP, CMP, ADIFF, GFR, ANEU ####[address] [place], [place] [address] Platelet mean volume (Bld) [Entitic vol] 8.8 fL Normal 7.4-10.4 [facility] ([place]) Comment on above: Performed By: #### C BC, PBNP, CMP, ADIFF, GFR, ANEU ####[address] [place], [place] [address] RBC 2.66 10 6/mcL Low 4.04-6.13 [facility] ([place]) Comment on above: Performed By: #### C BC, PBNP, CMP, ADIFF, GFR, ANEU ####[address] [place], [place] [address] WBC 6.7 10 3/mcL Normal 4.6-10.8 [facility] ([place]) Comment on above: Performed By: #### C BC, PBNP, CMP, ADIFF, GFR, ANEU ####[address] [place], [place] [address] CMPon 06-08-2023 Albumin Level 2.7 G/dL Low 3.4-4.8 [facility] ([place]) Comment on above: Performed By: #### C BC, PBNP, CMP, ADIFF, GFR, ANEU ####[address] [place], [place] [address] Albumin/Globulin [Mass ratio] 0.8 {ratio} Low 1.1-2.5 [facility] ([place]) Comment on above: Performed By: #### C BC, PBNP, CMP, ADIFF, GFR, ANEU ####[address] [place], [place] [address] ALP [Catalytic activity/Vol] 70 U/L Normal 40-135 [facility] ([place]) Comment on above: Performed By: #### C BC, PBNP, CMP, ADIFF, GFR, ANEU ####[address] [place], [place] [address] ALT [Catalytic activity/Vol] 26 U/L Normal 16-63 [facility] ([place]) Comment on above: Performed By: #### C BC, PBNP, CMP, ADIFF, GFR, ANEU ####[address] [place], [place] [address] AST [Catalytic activity/Vol] 16 U/L Normal 10-40 [facility] ([place]) Comment on above: Performed By: #### C BC, PBNP, CMP, ADIFF, GFR, ANEU ####[address] [place], [place] [address] Bili Total 0.3 mg/dL Normal 0.2-1.0 [facility] ([place]) Comment on above: Result Comment: Use of this assay is not recommended for patients undergoing treatment with eltrombopag due to the potential for falsely elevated results. Performed By: #### C BC, PBNP, CMP, ADIFF, GFR, ANEU ####[address] [place], [place] [address] BUN/Creatinine Ratio 34 ratio High 7-27 [facility] ([place]) Comment on above: Performed By: #### C BC, PBNP, CMP, ADIFF, GFR, ANEU ####[address] [place], [place] [address] Calcium [Mass/Vol] 9.0 mg/dL Normal 8.4-10.2 [facility] ([place]) Comment on above: Performed By: #### C BC, PBNP, CMP, ADIFF, GFR, ANEU ####[address] [place], [place] [address] Chloride [Moles/Vol] 108 mmol/L High 98-107 [facility] ([place]) Comment on above: Performed By: #### C BC, PBNP, CMP, ADIFF, GFR, ANEU ####[address] [place], [place] [address] CO2 [Moles/Vol] 29 mmol/L Normal 23-31 [facility] ([place]) Comment on above: Performed By: #### C BC, PBNP, CMP, ADIFF, GFR, ANEU ####[address] [place], [place] [address] Creatinine [Mass/Vol] 2.24 mg/dL High 0.70-1.30 [facility] ([place]) Comment on above: Performed By: #### C BC, PBNP, CMP, ADIFF, GFR, ANEU ####[address] [place], [place] [address] Electrolyte Balance 8.0 mEq/L Normal 4.0-15.0 [facility] ([place]) Comment on above: Performed By: #### C BC, PBNP, CMP, ADIFF, GFR, ANEU ####[address] [place], [place] [address] Globulin 3.5 G/dL Normal [facility] ([place]) Comment on above: Performed By: #### C BC, PBNP, CMP, ADIFF, GFR, ANEU ####[address] [place], [place] [address] Glucose [Mass/Vol] 251 mg/dL High 83-110 [facility] [place]) Comment on above: Performed By: #### C BC, PBNP, CMP, ADIFF, GFR, ANEU ####[address] [place], [place] [address] Potassium [Moles/Vol] 5.0 mmol/L Normal 3.5-5.1 [facility] ([place]) Comment on above: Performed By: #### C BC, PBNP, CMP, ADIFF, GFR, ANEU ####[address] [place], [place] [address] Sodium [Moles/Vol] 145 mmol/L Normal 136-145 [facility] [place]) Comment on above: Performed By: #### C BC, PBNP, CMP, ADIFF, GFR, ANEU ####[address] [place], [place] [address] Total Protein 6.2 G/dL Low 6.4-8.2 [facility] ([place]) Comment on above: Performed By: #### C BC, PBNP, CMP, ADIFF, GFR, ANEU ####[address] [place], [place] [address] Urea nitrogen [Mass/Vol] 76 mg/dL High 7-18 [facility] ([place]) Comment on above: Performed By: #### C BC, PBNP, CMP, ADIFF, GFR, ANEU ####[address] [place], [place] [address] LABORATORYOrdered By: Javier Vega on 06-08-2023 Base excess Calc (Bld) [Moles/Vol] 2.0 mmol/L Normal -2.4 - 2.3 mmol/L AO Blood Gas SS CO2 (Bld) [Partial pressure] 40.4 mm[Hg] Normal 35.0 - 45.0 mm Hg AO Blood Gas SS CO2 [Moles/Vol] 28 mmol/L High 19 - 24 mmol/L AO Blood Gas SS HCO3 (Bld) [Moles/Vol] 26.7 mmol/L High 22.0 - 26.0 mmol/L AO Blood Gas SS Oxygen (Bld) [Partial pressure] 147.0 mm[Hg] High 80.0 - 100.0 mm Hg AO Blood Gas SS pH (Bld) 7.43 [pH] Normal 7.35 - 7.45 AO Blood Gas SS LABORATORYOrdered By: SYSTEM SYSTEM on 06-08-2023 Troponin I.cardiac DL <= 0.01 ng/mL [Mass/Vol] 30 ng/L Normal 0 - 76 ng/L AO ADM SS Comment on above: Interpretive Data: H igh Sensitive Troponin I Reference Ranges: Female: 0-51 ng/L Male: 0-76 ng/L Testing performed on [employer] using a homogeneous sandwich chemiluminescent immunoassay based on NPR technology. Basophil, Absolute 0.0 103/mcL Normal 0.0 - 0.2 10^3/mcL AO Workflow SS Basophils/100 WBC (Bld) 0.7 % Normal 0.0 - 2.5 % AO Workflow SS Eosinophil, Absolute 0.1 103/mcL Normal 0.0 - 0 .4 10^3/mcL AO Workflow SS Eosinophils/100 WBC (Bld) 2.2 % Normal 0.0 - 7.0 % AO Workflow SS Erythrocyte distribution width (RBC) [Ratio] 15.6 % High 11.5 - 14.5 % AO Workflow SS Hematocrit (Bld) [Volume fraction] 22.5 % Low 42.0 - 52.0 % AO Workflow SS Hemoglobin (Bld) [Mass/Vol] 7.6 G/dL Low 14.0 - 18.0 G/dL AO Workflow SS Lymphocyte, Absolute 1.0 103/mcL Normal 0.8 - 3 .9 10^3/mcL AO Workflow SS Lymphocytes/100 WBC (Bld) 15.6 % Normal 10.0 - 50.0 % AO Workflow SS MCH (RBC) [Entitic mass] 29.0 pg Normal 27. 0 - 31.2 pg AO Workflow SS MCHC 33.6 G/dL Normal 31.8 - 35.4 G/dL AO Workflow SS MCV (RBC) [Entitic vol] 86.3 fL Normal 80.0 - 94.0 fL AO Workflow SS Monocyte distribution width Auto (Bld) [Entitic vol] 19.65 1 Normal 0.00 - 20.00 AO Workflow SS Comment on above: Result Comment: For ED adult patients suspected of sepsis, MDW<=20.0 does not rule out sepsis or risk of sepsis Monocyte, Absolute 0.4 103/mcL Normal 0.2 - 1.0 10^3/mcL AO Workflow SS Monocytes/100 WBC (Bld) 5.9 % Normal 1.7 - 13.0 % AO Workflow SS Neutrophil, Absolute 5.0 103/mcL Normal 2.9 - 6 .2 10^3/mcL AO Workflow SS Neutrophils/100 WBC (Bld) 75.6 % Normal 37.0 - 80.0 % AO Workflow SS Platelet mean volume (Bld) [Entitic vol] 8.9 fL Normal 7.4 - 10.4 fL AO Workflow SS Platelets (Bld) [#/Vol] 140 103/mcL Normal 130 - 400 10^3/mcL AO Workflow SS RBC (Bld) [#/Vol] 2.60 106/mcL Low 4.04 - 6.1 3 10^6/mcL AO Workflow SS Troponin I.cardiac DL <= 0.01 ng/mL [Mass/Vol] 30 ng/L Normal 0 - 76 ng/L AO ADM SS Comment on above: Interpretive Data: H igh Sensitive Troponin I Reference Ranges: Female: 0-51 ng/L Male: 0-76 ng/L Testing performed on [employer] using a homogeneous sandwich chemiluminescent immunoassay based on [employer] technology. WBC (Bld) [#/Vol] 6.6 103/mcL Normal 4.6 - 10.8 10^3/mcL AO Workflow SS Albumin BCP dye [Mass/Vol] 2.7 G/dL Low 3.4 - 4.8 G/dL AO ADM SS Albumin/Globulin [Mass ratio] 0.8 {ratio} Low 1.1 - 2.5 ratio AO ADM SS ALP [Catalytic activity/Vol] 70 U/L Normal 40 - 135 U/L AO ADM SS ALT With P-5'-P [Catalytic activity/Vol] 26 U/L Normal 16 - 63 U/L AO ADM SS AST With P-5'-P [Catalytic activity/Vol] 16 U/L Normal 10 - 40 U/L AO ADM SS Basophil, Absolute 0.0 103/mcL Normal 0.0 - 0.2 10^3/mcL AO Workflow SS Basophils/100 WBC (Bld) 0.5 % Normal 0.0 - 2.5 % AO Workflow SS Bilirubin [Mass/Vol] 0.3 mg/dL Normal 0.2 - 1 .0 mg/dL AO ADM SS Comment on above: Interpretive Data: U se of this assay is not recommended for patients undergoing treatment with eltrombopag due to the potential for falsely elevated results. Calcium [Mass/Vol] 9.0 mg/dL Normal 8.4 - 10. 2 mg/dL AO ADM SS Chloride [Moles/Vol] 108 mmol/L High 98 - 10 7 mmol/L AO ADM SS CO2 [Moles/Vol] 29 mmol/L Normal 23 - 31 mmol/L AO ADM SS Creatinine [Mass/Vol] 2.24 mg/dL High 0.70 - 1.30 mg/dL AO ADM SS Electrolyte Balance 8.0 mEq/L Normal 4.0 - 15 .0 mEq/L AO ADM SS Eosinophil, Absolute 0.2 103/mcL Normal 0.0 - 0 .4 10^3/mcL AO Workflow SS Eosinophils/100 WBC (Bld) 2.3 % Normal 0.0 - 7.0 % AO Workflow SS Erythrocyte distribution width (RBC) [Ratio] 15.3 % High 11.5 - 14.5 % AO Workflow SS GFR/1.73 sq M.predicted among blacks MDRD (S/P/Bld) [Vol rate/Area] 34 ml/min/1.73sqm Invalid Interpretation Code AO Chemistry S Comment on above: Interpretive Data: GFR Population mean for , Non- Americans Ages 20-29 = 116 mL/min/1.73 sq.m. Ages 30-39 = 107 mL/min/1.73 sq.m. Ages 40-49 = 99 mL/min/1.73 sq.m. Ages 50-59 = 93 mL/min/1.73 sq.m. Ages 60-69 = 85 mL/min/1.73 sq.m. Ages 70+ = 75 mL/min/1.73 sq.m. Chronic Kidney Disease: Less than 60 mL/min/1.73 square meters End Stage Renal Disease: Less than 15 mL/min/1.73 square meters GFR/1.73 sq M.predicted among non-blacks MDRD (S/P/Bld) [Vol rate/Area] 28 ml/min/1.73sqm Invalid Interpretation Code AO Chemistry S Comment on above: Interpretive Data: GFR Population mean for , Non- Americans Ages 20-29 = 116 mL/min/1.73 sq.m. Ages 30-39 = 107 mL/min/1.73 sq.m. Ages 40-49 = 99 mL/min/1.73 sq.m. Ages 50-59 = 93 mL/min/1.73 sq.m. Ages 60-69 = 85 mL/min/1.73 sq.m. Ages 70+ = 75 mL/min/1.73 sq.m. Chronic Kidney Disease: Less than 60 mL/min/1.73 square meters End Stage Renal Disease: Less than 15 mL/min/1.73 square meters Globulin 3.5 G/dL Invalid Interpretation Code AO ADM SS Glucose [Mass/Vol] 251 mg/dL High 83 - 110 mg/dL AO ADM SS Hematocrit (Bld) [Volume fraction] 23.0 % Low 42.0 - 52.0 % AO Workflow SS Hemoglobin (Bld) [Mass/Vol] 7.7 G/dL Low 14.0 - 18.0 G/dL AO Workflow SS Lymphocyte, Absolute 1.0 103/mcL Normal 0.8 - 3 .9 10^3/mcL AO Workflow SS Lymphocytes/100 WBC (Bld) 15.5 % Normal 10.0 - 50.0 % AO Workflow SS MCH (RBC) [Entitic mass] 29.0 pg Normal 27. 0 - 31.2 pg AO Workflow SS MCHC 33.5 G/dL Normal 31.8 - 35.4 G/dL AO Workflow SS MCV (RBC) [Entitic vol] 86.4 fL Normal 80.0 - 94.0 fL AO Workflow SS Monocyte, Absolute 0.4 103/mcL Normal 0.2 - 1.0 10^3/mcL AO Workflow SS Monocytes/100 WBC (Bld) 6.6 % Normal 1.7 - 13.0 % AO Workflow SS Natriuretic peptide.B prohormone N-Terminal [Mass/Vol] 2501 pg/mL High 0 - 450 pg/mL AO ADM SS Comment on above: Interpretive Data: N T-proBNP results of less than 300 pg/mL effectively rules out acute congestive heart failure with 99% negative predictive value. Neutrophil, Absolute 5.1 103/mcL Normal 2.9 - 6 .2 10^3/mcL AO Workflow SS Neutrophils/100 WBC (Bld) 75.1 % Normal 37.0 - 80.0 % AO Workflow SS Platelet mean volume (Bld) [Entitic vol] 8.8 fL Normal 7.4 - 10.4 fL AO Workflow SS Platelets (Bld) [#/Vol] 141 103/mcL Normal 130 - 400 10^3/mcL AO Workflow SS Potassium [Moles/Vol] 5.0 mmol/L Normal 3.5 - 5.1 mmol/L AO ADM SS Protein [Mass/Vol] 6.2 G/dL Low 6.4 - 8.2 G/dL AO ADM SS RBC (Bld) [#/Vol] 2.66 106/mcL Low 4.04 - 6.1 3 10^6/mcL AO Workflow SS Sodium [Moles/Vol] 145 mmol/L Normal 136 - 145 mmol/L AO ADM SS Urea nitrogen [Mass/Vol] 76 mg/dL High 7 - 18 mg/dL AO ADM SS Urea nitrogen/Creatinine [Mass ratio] 34 ratio High 7 - 27 ratio AO ADM SS WBC (Bld) [#/Vol] 6.7 103/mcL Normal 4.6 - 10.8 10^3/mcL AO Workflow SS PBNPon 06-08-2023 Natriuretic peptide B (Bld) [Mass/Vol] 2501 pg/mL High 0-450 [facility] ([place]) Comment on above: Result Comment: NT-p roBNP results of less than 300 pg/mL effectivelyrules out acute congestive heart failure with 99% negative predictive value. Performed By: #### C BC, PBNP, CMP, ADIFF, GFR, ANEU ####[address] [place], [place] [address] TROPHSon 06-08-2023 High Sensitivity Troponin I 30 ng/L Normal 0-76 [facility] ([place]) Comment on above: Result Comment: High Sensitive Troponin I Reference Ranges:Female: 0-51 ng/LMale: 0-76 ng/LTesting performed on [employer]ension EXL using a homogeneous sandwich chemiluminescent immunoassay based on NPR technology. Performed By: #### T ROP ####[address] [place], [place] [address] High Sensitivity Troponin I 30 ng/L Normal 0-76 [facility] ([place]) Comment on above: Result Comment: High Sensitive Troponin I Reference Ranges:Female: 0-51 ng/LMale: 0-76 ng/LTesting performed on [employer]ension EXL using a homogeneous sandwich chemiluminescent immunoassay based on NPR technology. Performed By: #### M DW, TROPHS, ANEU, CBC, ADIFF ####[address] [place], [place] [address] XR CHEST 1 VIEWon 06-08-2023 XR CHEST 1 VIEW Normal [facility] ([place]) .Auto Diffon 05-25-2023 Basophil, Absolute 0.0 10 3/mcL Normal 0.0-0.2 [facility] ([place]) Comment on above: Performed By: #### G FR, PBNP, CBC, ADIFF, TROPHS, BMP, MDW, ANEU ####[address] [place], [place] [address] Basophils/100 WBC (Bld) 0.4 % Normal 0.0-2.5 [facility] ([place]) Comment on above: Performed By: #### G FR, PBNP, CBC, ADIFF, TROPHS, BMP, MDW, ANEU ####[address] [place], [place] [address] Eosinophil, Absolute 0.2 10 3/mcL Normal 0.0-0.4 [facility] ([place]) Comment on above: Performed By: #### G FR, PBNP, CBC, ADIFF, TROPHS, BMP, MDW, ANEU ####[address] [place], [place] [address] Eosinophils/100 WBC (Bld) 3.5 % Normal 0.0-7.0 [facility] ([place]) Comment on above: Performed By: #### G FR, PBNP, CBC, ADIFF, TROPHS, BMP, MDW, ANEU ####[address] [place], [place] [address] Lymphocyte, Absolute 0.8 10 3/mcL Normal 0.8-3.9 [facility] ([place]) Comment on above: Performed By: #### G FR, PBNP, CBC, ADIFF, TROPHS, BMP, MDW, ANEU ####[address] [place], [place] [address] Lymphocytes/100 WBC (Bld) 11.4 % Normal 10.0-50.0 [facility] ([place]) Comment on above: Performed By: #### G FR, PBNP, CBC, ADIFF, TROPHS, BMP, MDW, ANEU ####[address] [place], [place] [address] Monocyte, Absolute 0.4 10 3/mcL Normal 0.2-1.0 [facility] ([place]) Comment on above: Performed By: #### G FR, PBNP, CBC, ADIFF, TROPHS, BMP, MDW, ANEU ####[address] [place], [place] [address] Monocytes/100 WBC (Bld) 5.9 % Normal 1.7-13.0 [facility] ([place]) Comment on above: Performed By: #### G FR, PBNP, CBC, ADIFF, TROPHS, BMP, MDW, ANEU ####[address] [place], [place] [address] Neutrophils/100 WBC (Bld) 78.8 % Normal 37.0-80.0 [facility] ([place]) Comment on above: Performed By: #### G FR, PBNP, CBC, JEFERSON, SNEHA, JAVIER, RAJAT, ANEU ####[address] [place], [place] [address] .GFRon 05-25-2023 GFR 45 ml/min/1.73sqm Normal [facility] ([place]) Comment on above: Result Comment: GFR Population mean for , Non- Americans Ages 20-29 = 116 mL/min/1.73 sq.m. Ages 30-39 = 107 mL/min/1.73 sq.m. Ages 40-49 = 99 mL/min/1.73 sq.m. Ages 50-59 = 93 mL/min/1.73 sq.m. Ages 60-69 = 85 mL/min/1.73 sq.m. Ages 70+ = 75 mL/min/1.73 sq.m.Chronic Kidney Disease: Less than 60 mL/min/1.73 square metersEnd Stage Renal Disease: Less than 15 mL/min/1.73 square meters Performed By: #### G FR, PBNP, CBC, ADDEE, TROPHNia, JAVIER, RAJAT, ANEU ####[address] [place], [place] [address] GFR Non- 37 ml/min/1.73sqm Normal [facility] ([place]) Comment on above: Result Comment: GFR Population mean for , Non- Americans Ages 20-29 = 116 mL/min/1.73 sq.m. Ages 30-39 = 107 mL/min/1.73 sq.m. Ages 40-49 = 99 mL/min/1.73 sq.m. Ages 50-59 = 93 mL/min/1.73 sq.m. Ages 60-69 = 85 mL/min/1.73 sq.m. Ages 70+ = 75 mL/min/1.73 sq.m.Chronic Kidney Disease: Less than 60 mL/min/1.73 square metersEnd Stage Renal Disease: Less than 15 mL/min/1.73 square meters Performed By: #### G FR, PBNP, CBC, ADIFF, TROPHS, BMP, MDW, ANEU ####[address] [place], [place] [address] .MDWon 05-25-2023 Monocyte Distribution Width 15.89 Normal 0.00-20.00 [facility] ([place]) Comment on above: Result Comment: For ED adult patients suspected of sepsis, MDW<=20.0 does not rule out sepsis or risk of sepsis Performed By: #### G FR, PBNP, CBC, ADIFF, TROPHS, BMP, MDW, ANEU ####[address] [place], [place] [address] .NEUABSon 05-25-2023 Neutrophil, Absolute 5.3 10 3/mcL Normal 2.9-6.2 [facility] ([place]) Comment on above: Performed By: #### G FR, PBNP, CBC, ADIFF, TROPHS, BMP, MDW, ANEU ####[address] [place], [place] [address] BMPon 05-25-2023 BUN/Creatinine Ratio 26 ratio Normal 7-27 [facility] ([place]) Comment on above: Performed By: #### G FR, PBNP, CBC, ADIFF, TROPHS, BMP, MDW, ANEU ####[address] [place], [place] [address] Calcium [Mass/Vol] 9.3 mg/dL Normal 8.4-10.2 [facility] ([place]) Comment on above: Performed By: #### G FR, PBNP, CBC, ADIFF, TROPHS, BMP, MDW, ANEU ####[place] [address] [place], [place] [address] Chloride [Moles/Vol] 108 mmol/L High 98-107 [facility] ([place]) Comment on above: Performed By: #### G FR, PBNP, CBC, ADIFF, TROPHS, BMP, MDW, ANEU ####[place] [address] [place], [place] [address] CO2 [Moles/Vol] 29 mmol/L Normal 23-31 [facility] ([place]) Comment on above: Performed By: #### G FR, PBNP, CBC, ADIFF, TROPHS, JAVIER, RAJAT, ANEU ####[address] [place], [place] [address] Creatinine [Mass/Vol] 1.75 mg/dL High 0.70-1.30 [facility] ([place]) Comment on above: Performed By: #### G FR, PBNP, CBC, ADIFF, TROPHS, BMP, RAJAT, ANEU ####[address] [place], [place] [address] Electrolyte Balance 7.0 mEq/L Normal 4.0-15.0 [facility] ([place]) Comment on above: Performed By: #### G FR, PBNP, CBC, ADIFF, TROPHS, JAVIER, RAJAT, ANEU ####[address] [place], [place] [address] Glucose [Mass/Vol] 118 mg/dL High 83-110 [facility] [place]) Comment on above: Performed By: #### G FR, PBNP, CBC, ADIFF, TROPHS, JAVIER, RAJAT, ANEU ####[address] [place], [place] [address] Potassium [Moles/Vol] 5.6 mmol/L High 3.5-5.1 [facility] ([place]) Comment on above: Performed By: #### Jerrell FR, PBNP, CBC, ADIFF, TROPHS, JAVIER, RAJAT, ANEU ####[address] [place], [place] [address] Sodium [Moles/Vol] 144 mmol/L Normal 136-145 [facility] [place]) Comment on above: Performed By: #### G FR, PBNP, CBC, ADIFF, TROPHS, JAVIER, RAJAT, ANEU ####[address] [place], [place] [address] Urea nitrogen [Mass/Vol] 46 mg/dL High 7-18 [facility] ([place]) Comment on above: Performed By: #### G FR, PBNP, CBC, ADIFF, TROPHS, BMP, MDW, ANEU ####[address] [place], [place] [address] CBCon 05-25-2023 Erythrocyte distribution width (RBC) [Ratio] 16.3 % High 11.5-14.5 [facility] ([place]) Comment on above: Performed By: #### G FR, PBNP, CBC, ADIFF, TROPHS, BMP, MDW, ANEU ####[address] [place], [place] [address] Hematocrit (Bld) [Volume fraction] 28.6 % Low 42.0-52.0 [facility] ([place]) Comment on above: Performed By: #### G FR, PBNP, CBC, ADIFF, TROPHS, BMP, W, ANEU ####[address] [place], [place] [address] Hgb 9.5 G/dL Low 14.0-18.0 [facility] ([place]) Comment on above: Performed By: #### G FR, PBNP, CBC, ADIFF, TROPHS, BMP, MDW, ANEU ####[address] [place], [place] [address] MCH (RBC) [Entitic mass] 28.4 pg Normal 27.0-31.2 [facility] ([place]) Comment on above: Performed By: #### G FR, PBNP, CBC, ADIFF, TROPHS, BMP, MDW, ANEU ####[address] [place], [place] [address] MCHC 33.2 G/dL Normal 31.8-35.4 [facility] ([place]) Comment on above: Performed By: #### G FR, PBNP, CBC, ADIFF, TROPHS, BMP, W, ANEU ####[address] [place], [place] [address] MCV (RBC) [Entitic vol] 85.7 fL Normal 80.0-94.0 [facility] ([place]) Comment on above: Performed By: #### G FR, PBNP, CBC, ADIFF, TROPHS, BMP, MDW, ANEU ####[address] [place], [place] [address] Platelet 82 10 3/mcL Low 130-400 [facility] ([place]) Comment on above: Performed By: #### Jerrell FR, PBNP, CBC, ADDEE, TROPHNia, JAVIER, RAJAT, ANEU ####[address] [place], [place] [address] Platelet mean volume (Bld) [Entitic vol] 8.2 fL Normal 7.4-10.4 [facility] ([place]) Comment on above: Performed By: #### Jerrell FR, PBNP, CBC, ADDEE, TROPHS, JAVIER, RAJAT, ANEU ####[address] [place], [place] [address] RBC 3.34 10 6/mcL Low 4.04-6.13 [facility] ([place]) Comment on above: Performed By: #### Jerrell FR, PBNP, CBC, ADDEE, SNEHA, JAVIER, RAJAT, ANEU ####[address] [place], [place] [address] WBC 6.8 10 3/mcL Normal 4.6-10.8 [facility] ([place]) Comment on above: Performed By: #### Jerrell FR, PBNP, CBC, ADDEE, TROPHS, JAVIER, RAJAT, ANEU ####[address] [place], [place] [address] CVFLURVon 05-25-2023 FLU A PCR Negative Normal Negative [facility] ([place]) Comment on above: Performed By: #### Fidencio VFLURV ####[address] [place], [place] [address] FLU B PCR Negative Normal Negative [facility] ([place]) Comment on above: Performed By: #### C VFLURV ####[address] [place], [place] [address] RSV PCR Negative Normal Negative [facility] ([place]) Comment on above: Performed By: #### C VFLURV ####[address] [place], [place] [address] SARS-CoV-2 (COVID-19) RNA JOSH+probe Ql (Unsp spec) Negative Normal Negative [facility] ([place]) Comment on above: Result Comment: Resu lts from the Xpert Xpress CoV-2/Flu/RSV plus test should be correlated with the clinical history, epidemiological data, and other data available to the clinical evaluating the patient. Performance of the Xpert Xpress CoV-2/Flu/RSV plus test has only been established in nasopharyngeal swab specimen. Erroneous test results might occur from improper specimen collection, failure to follow the recommended sample collection, handling and storage procedures, technical error, or sample mix-up. False negative results may occur if a virus is present at a level below the analytical limit of detection. Viral nucleic acid may persist in vivo, independent of virus viability. Detection of analyte target(s) does not imply that the corresponding virus(es) are infectious or are the causative agents for clinical symptoms. Recent patient exposure to FluMist or other live attenuated influenza vaccines may cause inaccurate positive results. Performed By: #### C [facility] ####[address] [place], [place] [address] LABORATORYOrdered By: Reed Anna on 05-25-2023 FLUAV RNA JOSH+probe Ql (Resp) Negative (05/25/23 3:39 PM) Normal Negative AO Auto Urine SS FLUBV RNA JOSH+probe Ql (Resp) Negative (05/25/23 3:39 PM) Normal Negative AO Auto Urine SS RSV RNA JOSH+probe Ql (Resp) Negative (05/25/23 3:39 PM) Normal Negative AO Auto Urine SS SARS-CoV-2 (COVID-19) RNA JOSH+probe Ql (Resp) Negative 4 (05/25/23 3:39 PM) Normal Negative AO Auto Urine SS Comment on above: Interpretive Data: R esults from the Xpert Xpress CoV-2/Flu/RSV plus test should be correlated with the clinical history, epidemiological data, and other data available to the clinical evaluating the patient. Performance of the Xpert Xpress CoV-2/Flu/RSV plus test has only been established in nasopharyngeal swab specimen. Erroneous test results might occur from improper specimen collection, failure to follow the recommended sample collection, handling and storage procedures, technical error, or sample mix-up. False negative results may occur if a virus is present at a level below the analytical limit of detection. Viral nucleic acid may persist in vivo, independent of virus viability. Detection of analyte target(s) does not imply that the corresponding virus(es) are infectious or are the causative agents for clinical symptoms. Recent patient exposure to FluMist or other live attenuated influenza vaccines may cause inaccurate positive results. LABORATORYOrdered By: SYSTEM SYSTEM on 05-25-2023 Basophil, Absolute 0.0 103/mcL Normal 0.0 - 0.2 10^3/mcL AO Workflow SS Basophils/100 WBC (Bld) 0.4 % Normal 0.0 - 2.5 % AO Workflow SS Calcium [Mass/Vol] 9.3 mg/dL Normal 8.4 - 10. 2 mg/dL AO ADM SS Chloride [Moles/Vol] 108 mmol/L High 98 - 10 7 mmol/L AO ADM SS CO2 [Moles/Vol] 29 mmol/L Normal 23 - 31 mmol/L AO ADM SS Creatinine [Mass/Vol] 1.75 mg/dL High 0.70 - 1.30 mg/dL AO ADM SS Electrolyte Balance 7.0 mEq/L Normal 4.0 - 15 .0 mEq/L AO ADM SS Eosinophil, Absolute 0.2 103/mcL Normal 0.0 - 0 .4 10^3/mcL AO Workflow SS Eosinophils/100 WBC (Bld) 3.5 % Normal 0.0 - 7.0 % AO Workflow SS Erythrocyte distribution width (RBC) [Ratio] 16.3 % High 11.5 - 14.5 % AO Workflow SS GFR/1.73 sq M.predicted among blacks MDRD (S/P/Bld) [Vol rate/Area] 45 ml/min/1.73sqm Invalid Interpretation Code AO Chemistry S Comment on above: Interpretive Data: GFR Population mean for , Non- Americans Ages 20-29 = 116 mL/min/1.73 sq.m. Ages 30-39 = 107 mL/min/1.73 sq.m. Ages 40-49 = 99 mL/min/1.73 sq.m. Ages 50-59 = 93 mL/min/1.73 sq.m. Ages 60-69 = 85 mL/min/1.73 sq.m. Ages 70+ = 75 mL/min/1.73 sq.m. Chronic Kidney Disease: Less than 60 mL/min/1.73 square meters End Stage Renal Disease: Less than 15 mL/min/1.73 square meters GFR/1.73 sq M.predicted among non-blacks MDRD (S/P/Bld) [Vol rate/Area] 37 ml/min/1.73sqm Invalid Interpretation Code AO Chemistry S Comment on above: Interpretive Data: GFR Population mean for , Non- Americans Ages 20-29 = 116 mL/min/1.73 sq.m. Ages 30-39 = 107 mL/min/1.73 sq.m. Ages 40-49 = 99 mL/min/1.73 sq.m. Ages 50-59 = 93 mL/min/1.73 sq.m. Ages 60-69 = 85 mL/min/1.73 sq.m. Ages 70+ = 75 mL/min/1.73 sq.m. Chronic Kidney Disease: Less than 60 mL/min/1.73 square meters End Stage Renal Disease: Less than 15 mL/min/1.73 square meters Glucose [Mass/Vol] 118 mg/dL High 83 - 110 mg/dL AO ADM SS Hematocrit (Bld) [Volume fraction] 28.6 % Low 42.0 - 52.0 % AO Workflow SS Hemoglobin (Bld) [Mass/Vol] 9.5 G/dL Low 14.0 - 18.0 G/dL AO Workflow SS Lymphocyte, Absolute 0.8 103/mcL Normal 0.8 - 3 .9 10^3/mcL AO Workflow SS Lymphocytes/100 WBC (Bld) 11.4 % Normal 10.0 - 50.0 % AO Workflow SS MCH (RBC) [Entitic mass] 28.4 pg Normal 27. 0 - 31.2 pg AO Workflow SS MCHC 33.2 G/dL Normal 31.8 - 35.4 G/dL AO Workflow SS MCV (RBC) [Entitic vol] 85.7 fL Normal 80.0 - 94.0 fL AO Workflow SS Monocyte distribution width Auto (Bld) [Entitic vol] 15.89 1 Normal 0.00 - 20.00 AO Workflow SS Comment on above: Result Comment: For ED adult patients suspected of sepsis, MDW<=20.0 does not rule out sepsis or risk of sepsis Monocyte, Absolute 0.4 103/mcL Normal 0.2 - 1.0 10^3/mcL AO Workflow SS Monocytes/100 WBC (Bld) 5.9 % Normal 1.7 - 13.0 % AO Workflow SS Natriuretic peptide.B prohormone N-Terminal [Mass/Vol] 2608 pg/mL High 0 - 450 pg/mL AO ADM SS Comment on above: Interpretive Data: N T-proBNP results of less than 300 pg/mL effectively rules out acute congestive heart failure with 99% negative predictive value. Neutrophil, Absolute 5.3 103/mcL Normal 2.9 - 6 .2 10^3/mcL AO Workflow SS Neutrophils/100 WBC (Bld) 78.8 % Normal 37.0 - 80.0 % AO Workflow SS Platelet mean volume (Bld) [Entitic vol] 8.2 fL Normal 7.4 - 10.4 fL AO Workflow SS Platelets (Bld) [#/Vol] 82 103/mcL Low 130 - 400 10^3/mcL AO Workflow SS Potassium [Moles/Vol] 5.6 mmol/L High 3.5 - 5.1 mmol/L AO ADM SS RBC (Bld) [#/Vol] 3.34 106/mcL Low 4.04 - 6.1 3 10^6/mcL AO Workflow SS Sodium [Moles/Vol] 144 mmol/L Normal 136 - 145 mmol/L AO ADM SS Troponin I.cardiac DL <= 0.01 ng/mL [Mass/Vol] 29 ng/L Normal 0 - 76 ng/L AO ADM SS Comment on above: Interpretive Data: H igh Sensitive Troponin I Reference Ranges: Female: 0-51 ng/L Male: 0-76 ng/L Testing performed on [employer] using a homogeneous sandwich chemiluminescent immunoassay based on [employer] technology. Urea nitrogen [Mass/Vol] 46 mg/dL High 7 - 18 mg/dL AO ADM SS Urea nitrogen/Creatinine [Mass ratio] 26 ratio Normal 7 - 27 ratio AO ADM SS WBC (Bld) [#/Vol] 6.8 103/mcL Normal 4.6 - 10.8 10^3/mcL AO Workflow SS PBNPon 05-25-2023 Natriuretic peptide B (Bld) [Mass/Vol] 2608 pg/mL High 0-450 [facility] ([place]) Comment on above: Result Comment: NT-p roBNP results of less than 300 pg/mL effectivelyrules out acute congestive heart failure with 99% negative predictive value. Performed By: #### G FR, PBNP, CBC, ADIFF, TROPHS, BMP, RAJAT, ANEU ####Katie [address] [place], [place] [address] TROPHSon 05-25-2023 High Sensitivity Troponin I 29 ng/L Normal 0-76 [facility] ([place]) Comment on above: Result Comment: High Sensitive Troponin I Reference Ranges:Female: 0-51 ng/LMale: 0-76 ng/LTesting performed on [employer] using a homogeneous sandwich chemiluminescent immunoassay based on [employer] technology. Performed By: #### G FR, PBNP, CBC, JEFERSON, SNEHA, JAVIER, RAJAT, ANEU ####Katie [address] [place], [place] [address] XR CHEST 1 VIEWon 05-25-2023 XR CHEST 1 VIEW Normal [facility] ([place]) .Auto Diffon 05-24-2023 Basophil, Absolute 0.0 10 3/mcL Normal 0.0-0.2 [facility] ([place]) Comment on above: Performed By: #### M JEFERSON THOMAS ANEU, CBC ####Katie [address] [place], [place] [address] Basophils/100 WBC (Bld) 0.6 % Normal 0.0-2.5 [facility] ([place]) Comment on above: Performed By: #### M JEFERSON THOMAS ANEU, CBC ####Katie [address] [place], [place] [address] Eosinophil, Absolute 0.2 10 3/mcL Normal 0.0-0.4 [facility] ([place]) Comment on above: Performed By: #### M JEFERSON THOMAS ANEU, CBC ####Katie [address] [place], [place] [address] Eosinophils/100 WBC (Bld) 3.6 % Normal 0.0-7.0 [facility] ([place]) Comment on above: Performed By: #### M JEFERSON THOMAS ANEU, CBC ####Katie [address] [place], [place] [address] Lymphocyte, Absolute 1.0 10 3/mcL Normal 0.8-3.9 [facility] ([place]) Comment on above: Performed By: #### M MARTHA ADIFF, ANEU, CBC ####Katie [address] [place], [place] [address] Lymphocytes/100 WBC (Bld) 18.4 % Normal 10.0-50.0 [facility] ([place]) Comment on above: Performed By: #### M ORPH ADIFF, ANEU, CBC ####Katie [address] [place], [place] [address] Monocyte, Absolute 0.4 10 3/mcL Normal 0.2-1.0 [facility] ([place]) Comment on above: Performed By: #### M ORPH, ADIFF, ANEU, CBC ####Katie [address] [place], [place] [address] Monocytes/100 WBC (Bld) 7.1 % Normal 1.7-13.0 [facility] ([place]) Comment on above: Performed By: #### M ORPH ADIFF, ANEU, CBC ####Katie [address] [place], [place] [address] Neutrophils/100 WBC (Bld) 70.3 % Normal 37.0-80.0 [facility] ([place]) Comment on above: Performed By: #### M ORPH ADIFF, ANEU, CBC ####Katie [address] [place], [place] [address] .GFRon 05-24-2023 GFR 42 ml/min/1.73sqm Normal [facility] ([place]) Comment on above: Result Comment: GFR Population mean for , Non- Americans Ages 20-29 = 116 mL/min/1.73 sq.m. Ages 30-39 = 107 mL/min/1.73 sq.m. Ages 40-49 = 99 mL/min/1.73 sq.m. Ages 50-59 = 93 mL/min/1.73 sq.m. Ages 60-69 = 85 mL/min/1.73 sq.m. Ages 70+ = 75 mL/min/1.73 sq.m.Chronic Kidney Disease: Less than 60 mL/min/1.73 square metersEnd Stage Renal Disease: Less than 15 mL/min/1.73 square meters Performed By: #### C JANEEN PBNP, GFR ####K[address] [place], [place] [address] GFR Non- 35 ml/min/1.73sqm Normal [facility] ([place]) Comment on above: Result Comment: GFR Population mean for , Non- Americans Ages 20-29 = 116 mL/min/1.73 sq.m. Ages 30-39 = 107 mL/min/1.73 sq.m. Ages 40-49 = 99 mL/min/1.73 sq.m. Ages 50-59 = 93 mL/min/1.73 sq.m. Ages 60-69 = 85 mL/min/1.73 sq.m. Ages 70+ = 75 mL/min/1.73 sq.m.Chronic Kidney Disease: Less than 60 mL/min/1.73 square metersEnd Stage Renal Disease: Less than 15 mL/min/1.73 square meters Performed By: #### C MP, PBNP, GFR ####Katie [address] [place], [place] [address] .Morphon 05-24-2023 Platelet Estimate Decreased Normal [facility] ([place]) Comment on above: Performed By: #### M JEFERSON THOMAS ANEU, CBC ####Katie [address] [place], [place] [address] .NEUABSon 05-24-2023 Neutrophil, Absolute 3.7 10 3/mcL Normal 2.9-6.2 [facility] ([place]) Comment on above: Performed By: #### M JEFERSON THOMAS ANEU, CBC ####Katie [address] [place], [place] [address] CBCon 05-24-2023 Erythrocyte distribution width (RBC) [Ratio] 15.7 % High 11.5-14.5 [facility] ([place] Comment on above: Performed By: #### M JEFERSON THOMAS ANEU, CBC ####Katie [address] [place], [place] [address] Hematocrit (Bld) [Volume fraction] 27.2 % Low 42.0-52.0 [facility] ([place] Comment on above: Performed By: #### M ORJEFERSON LOPEZ ANEU, CBC ####K[address] [place], [place] [address] Hgb 9.1 G/dL Low 14.0-18.0 [facility] ([place] Comment on above: Performed By: #### M JEFERSON THOMAS ANEU, CBC ####Katie [address] [place], [place] [address] MCH (RBC) [Entitic mass] 28.8 pg Normal 27.0-31.2 [facility] ([place] Comment on above: Performed By: #### M ORJEFERSON LOPEZ ANEU, CBC ####Katie [address] [place], [place] [address] MCHC 33.3 G/dL Normal 31.8-35.4 [facility] ([place] Comment on above: Performed By: #### M ORJEFERSON LOPEZ ANEU, CBC ####Katie [address] [place], [place] [address] MCV (RBC) [Entitic vol] 86.3 fL Normal 80.0-94.0 [facility] ([place]) Comment on above: Performed By: #### M JEFERSON THOMAS ANEU, CBC ####Katie [address] [place], [place] [address] Platelet 77 10 3/mcL Low 130-400 [facility] ([place] Comment on above: Performed By: #### M ORJEFERSON LOPEZ ANEU, CBC ####Katie [address] [place], [place] [address] Platelet mean volume (Bld) [Entitic vol] 8.6 fL Normal 7.4-10.4 [facility] ([place] Comment on above: Performed By: #### M ORJEFERSON LOPEZ ANEU, CBC ####Katie [address] [place], [place] [address] RBC 3.15 10 6/mcL Low 4.04-6.13 [facility] ([place] Comment on above: Performed By: #### M ORJEFERSON LOPEZ ANEU, CBC ####Katie [address] [place], [place] [address] WBC 5.3 10 3/mcL Normal 4.6-10.8 [facility] ([place] Comment on above: Performed By: #### M JEFERSON THOMAS, ANEU, CBC ####Katie [address] [place], [place] [address] CMPon 05-24-2023 Albumin Level 3.1 G/dL Low 3.4-4.8 [facility] ([place] Comment on above: Performed By: #### C MP, PBNP, GFR ####Katie [address] [place], [place] [address] Albumin/Globulin [Mass ratio] 0.9 {ratio} Low 1.1-2.5 [facility] ([place] Comment on above: Performed By: #### C MP, PBNP, GFR ####K[address] [place], [place] [address] ALP [Catalytic activity/Vol] 68 U/L Normal 40-135 [facility] ([place] Comment on above: Performed By: #### C MP, PBNP, GFR ####K[address] [place], [place] [address] ALT [Catalytic activity/Vol] 25 U/L Normal 16-63 [facility] ([place] Comment on above: Performed By: #### C MP, PBNP, GFR ####Katie [address] [place], [place] [address] AST [Catalytic activity/Vol] 11 U/L Normal 10-40 [facility] ([place] Comment on above: Performed By: #### C MP, PBNP, GFR ####Katie [address] [place], [place] [address] Bili Total 0.5 mg/dL Normal 0.2-1.0 [facility] ([place]) Comment on above: Result Comment: Use of this assay is not recommended for patients undergoing treatment with eltrombopag due to the potential for falsely elevated results. Performed By: #### C MP, PBNP, GFR ####Katie [address] [place], [place] [address] BUN/Creatinine Ratio 21 ratio Normal 7-27 [facility] ([place] Comment on above: Performed By: #### C MP, PBNP, GFR ####Katie [address] [place], [place] [address] Calcium [Mass/Vol] 8.6 mg/dL Normal 8.4-10.2 [facility] [place] Comment on above: Performed By: #### C MP, PBNP, GFR ####K[address] [place], [place] [address] Chloride [Moles/Vol] 110 mmol/L High 98-107 [facility] ([place] Comment on above: Performed By: #### C MP, PBNP, GFR ####Katie [address] [place], [place] [address] CO2 [Moles/Vol] 31 mmol/L Normal 23-31 [facility] ([place] Comment on above: Performed By: #### C MP, PBNP, GFR ####[address] [place], [place] [address] Creatinine [Mass/Vol] 1.87 mg/dL High 0.70-1.30 [facility] ([place]) Comment on above: Performed By: #### C MP, PBNP, GFR ####[address] [place], [place] [address] Electrolyte Balance 5.0 mEq/L Normal 4.0-15.0 [facility] ([place]) Comment on above: Performed By: #### C MP, PBNP, GFR ####K[address] [place], [place] [address] Globulin 3.3 G/dL Normal [facility] ([place] Comment on above: Performed By: #### C MP, PBNP, GFR ####K[address] [place], [place] [address] Glucose [Mass/Vol] 177 mg/dL High 83-110 [facility] [place] Comment on above: Performed By: #### C MP, PBNP, GFR ####K[address] [place], [place] [address] Potassium [Moles/Vol] 5.4 mmol/L High 3.5-5.1 [facility] ([place]) Comment on above: Performed By: #### C MP, PBNP, GFR ####Katie [address] [place], [place] [address] Sodium [Moles/Vol] 146 mmol/L High 136-145 [facility] [place] Comment on above: Performed By: #### C MP, PBNP, GFR ####Katie [address] [place], [place] [address] Total Protein 6.4 G/dL Normal 6.4-8.2 [facility] ([place] Comment on above: Performed By: #### C MP, PBNP, GFR ####Katie [address] [place], [place] [address] Urea nitrogen [Mass/Vol] 40 mg/dL High 7-18 [facility] ([place] Comment on above: Performed By: #### C MP, PBNP, GFR ####Katie [address] [place], [place] [address] LABORATORYOrdered By: SYSTEM SYSTEM on 05-24-2023 Albumin BCP dye [Mass/Vol] 3.1 G/dL Low 3.4 - 4.8 G/dL AO ADM SS Albumin/Globulin [Mass ratio] 0.9 {ratio} Low 1.1 - 2.5 ratio AO ADM SS ALP [Catalytic activity/Vol] 68 U/L Normal 40 - 135 U/L AO ADM SS ALT With P-5'-P [Catalytic activity/Vol] 25 U/L Normal 16 - 63 U/L AO ADM SS AST With P-5'-P [Catalytic activity/Vol] 11 U/L Normal 10 - 40 U/L AO ADM SS Basophil, Absolute 0.0 103/mcL Normal 0.0 - 0.2 10^3/mcL AO Workflow SS Basophils/100 WBC (Bld) 0.6 % Normal 0.0 - 2.5 % AO Workflow SS Bilirubin [Mass/Vol] 0.5 mg/dL Normal 0.2 - 1 .0 mg/dL AO ADM SS Comment on above: Interpretive Data: U se of this assay is not recommended for patients undergoing treatment with eltrombopag due to the potential for falsely elevated results. Calcium [Mass/Vol] 8.6 mg/dL Normal 8.4 - 10. 2 mg/dL AO ADM SS Chloride [Moles/Vol] 110 mmol/L High 98 - 10 7 mmol/L AO ADM SS CO2 [Moles/Vol] 31 mmol/L Normal 23 - 31 mmol/L AO ADM SS Creatinine [Mass/Vol] 1.87 mg/dL High 0.70 - 1.30 mg/dL AO ADM SS Electrolyte Balance 5.0 mEq/L Normal 4.0 - 15 .0 mEq/L AO ADM SS Eosinophil, Absolute 0.2 103/mcL Normal 0.0 - 0 .4 10^3/mcL AO Workflow SS Eosinophils/100 WBC (Bld) 3.6 % Normal 0.0 - 7.0 % AO Workflow SS Erythrocyte distribution width (RBC) [Ratio] 15.7 % High 11.5 - 14.5 % AO Workflow SS GFR/1.73 sq M.predicted among blacks MDRD (S/P/Bld) [Vol rate/Area] 42 ml/min/1.73sqm Invalid Interpretation Code AO Chemistry S Comment on above: Interpretive Data: GFR Population mean for , Non- Americans Ages 20-29 = 116 mL/min/1.73 sq.m. Ages 30-39 = 107 mL/min/1.73 sq.m. Ages 40-49 = 99 mL/min/1.73 sq.m. Ages 50-59 = 93 mL/min/1.73 sq.m. Ages 60-69 = 85 mL/min/1.73 sq.m. Ages 70+ = 75 mL/min/1.73 sq.m. Chronic Kidney Disease: Less than 60 mL/min/1.73 square meters End Stage Renal Disease: Less than 15 mL/min/1.73 square meters GFR/1.73 sq M.predicted among non-blacks MDRD (S/P/Bld) [Vol rate/Area] 35 ml/min/1.73sqm Invalid Interpretation Code AO Chemistry S Comment on above: Interpretive Data: GFR Population mean for , Non- Americans Ages 20-29 = 116 mL/min/1.73 sq.m. Ages 30-39 = 107 mL/min/1.73 sq.m. Ages 40-49 = 99 mL/min/1.73 sq.m. Ages 50-59 = 93 mL/min/1.73 sq.m. Ages 60-69 = 85 mL/min/1.73 sq.m. Ages 70+ = 75 mL/min/1.73 sq.m. Chronic Kidney Disease: Less than 60 mL/min/1.73 square meters End Stage Renal Disease: Less than 15 mL/min/1.73 square meters Globulin 3.3 G/dL Invalid Interpretation Code AO ADM SS Glucose [Mass/Vol] 177 mg/dL High 83 - 110 mg/dL AO ADM SS Hematocrit (Bld) [Volume fraction] 27.2 % Low 42.0 - 52.0 % AO Workflow SS Hemoglobin (Bld) [Mass/Vol] 9.1 G/dL Low 14.0 - 18.0 G/dL AO Workflow SS Lymphocyte, Absolute 1.0 103/mcL Normal 0.8 - 3 .9 10^3/mcL AO Workflow SS Lymphocytes/100 WBC (Bld) 18.4 % Normal 10.0 - 50.0 % AO Workflow SS MCH (RBC) [Entitic mass] 28.8 pg Normal 27. 0 - 31.2 pg AO Workflow SS MCHC 33.3 G/dL Normal 31.8 - 35.4 G/dL AO Workflow SS MCV (RBC) [Entitic vol] 86.3 fL Normal 80.0 - 94.0 fL AO Workflow SS Monocyte, Absolute 0.4 103/mcL Normal 0.2 - 1.0 10^3/mcL AO Workflow SS Monocytes/100 WBC (Bld) 7.1 % Normal 1.7 - 13.0 % AO Workflow SS Natriuretic peptide.B prohormone N-Terminal [Mass/Vol] 2097 pg/mL High 0 - 450 pg/mL AO ADM SS Comment on above: Interpretive Data: N T-proBNP results of less than 300 pg/mL effectively rules out acute congestive heart failure with 99% negative predictive value. Neutrophil, Absolute 3.7 103/mcL Normal 2.9 - 6 .2 10^3/mcL AO Workflow SS Neutrophils/100 WBC (Bld) 70.3 % Normal 37.0 - 80.0 % AO Workflow SS Platelet mean volume (Bld) [Entitic vol] 8.6 fL Normal 7.4 - 10.4 fL AO Workflow SS Platelets (Bld) [#/Vol] 77 103/mcL Low 130 - 400 10^3/mcL AO Workflow SS Potassium [Moles/Vol] 5.4 mmol/L High 3.5 - 5.1 mmol/L AO ADM SS Protein [Mass/Vol] 6.4 G/dL Normal 6.4 - 8.2 G/dL AO ADM SS RBC (Bld) [#/Vol] 3.15 106/mcL Low 4.04 - 6.1 3 10^6/mcL AO Workflow SS Sodium [Moles/Vol] 146 mmol/L High 136 - 145 mmol/L AO ADM SS Urea nitrogen [Mass/Vol] 40 mg/dL High 7 - 18 mg/dL AO ADM SS Urea nitrogen/Creatinine [Mass ratio] 21 ratio Normal 7 - 27 ratio AO ADM SS WBC (Bld) [#/Vol] 5.3 103/mcL Normal 4.6 - 10.8 10^3/mcL AO Workflow SS LABORATORYOrdered By: Reed Anna on 05-24-2023 Platelet Estimate Decreased (05/24/23 10:38 AM) Normal AO Hematology S PBNPon 05-24-2023 Natriuretic peptide B (Bld) [Mass/Vol] 2097 pg/mL High 0-450 [facility] ([place]) Comment on above: Result Comment: NT-p roBNP results of less than 300 pg/mL effectivelyrules out acute congestive heart failure with 99% negative predictive value. Performed By: #### C MP, PBNP, GFR ####Katie [address] [place], [place] [address] .Auto Diffon 05-17-2023 Basophil, Absolute 0.0 10 3/mcL Normal 0.0-0.2 [facility] ([place]) Comment on above: Performed By: #### A DIFF, CBC, ANEU ####Katie [address] [place], [place] [address] Basophils/100 WBC (Bld) 0.4 % Normal 0.0-2.5 [facility] ([place]) Comment on above: Performed By: #### A DIFF, CBC, ANEU ####Katie [address] [place], [place] [address] Eosinophil, Absolute 0.2 10 3/mcL Normal 0.0-0.4 [facility] ([place]) Comment on above: Performed By: #### A DIFF, CBC, ANEU ####Katie [address] [place], [place] [address] Eosinophils/100 WBC (Bld) 3.6 % Normal 0.0-7.0 [facility] ([place]) Comment on above: Performed By: #### A DIFF, CBC, ANEU ####Katie [address] [place], [place] [address] Lymphocyte, Absolute 1.2 10 3/mcL Normal 0.8-3.9 [facility] ([place]) Comment on above: Performed By: #### A DIFF, CBC, ANEU ####Katie [address] [place], [place] [address] Lymphocytes/100 WBC (Bld) 19.6 % Normal 10.0-50.0 [facility] ([place]) Comment on above: Performed By: #### A DIFF, CBC, ANEU ####Katie [address] [place], [place] [address] Monocyte, Absolute 0.5 10 3/mcL Normal 0.2-1.0 [facility] ([place]) Comment on above: Performed By: #### A DIFF, CBC, ANEU ####Katie [address] [place], [place] [address] Monocytes/100 WBC (Bld) 7.9 % Normal 1.7-13.0 [facility] ([place]) Comment on above: Performed By: #### A DIFF, CBC, ANEU ####Katie [address] [place], [place] [address] Neutrophils/100 WBC (Bld) 68.5 % Normal 37.0-80.0 [facility] ([place]) Comment on above: Performed By: #### A DIFF, CBC, ANEU ####Katie [address] [place], [place] [address] .GFRon 05-17-2023 GFR 47 ml/min/1.73sqm Normal [facility] ([place]) Comment on above: Result Comment: GFR Population mean for , Non- Americans Ages 20-29 = 116 mL/min/1.73 sq.m. Ages 30-39 = 107 mL/min/1.73 sq.m. Ages 40-49 = 99 mL/min/1.73 sq.m. Ages 50-59 = 93 mL/min/1.73 sq.m. Ages 60-69 = 85 mL/min/1.73 sq.m. Ages 70+ = 75 mL/min/1.73 sq.m.Chronic Kidney Disease: Less than 60 mL/min/1.73 square metersEnd Stage Renal Disease: Less than 15 mL/min/1.73 square meters Performed By: #### G FR, CMP, PBNP, A1C, TSH ####Katie [address] [place], [place] [address] GFR Non- 39 ml/min/1.73sqm Normal [facility] ([place]) Comment on above: Result Comment: GFR Population mean for , Non- Americans Ages 20-29 = 116 mL/min/1.73 sq.m. Ages 30-39 = 107 mL/min/1.73 sq.m. Ages 40-49 = 99 mL/min/1.73 sq.m. Ages 50-59 = 93 mL/min/1.73 sq.m. Ages 60-69 = 85 mL/min/1.73 sq.m. Ages 70+ = 75 mL/min/1.73 sq.m.Chronic Kidney Disease: Less than 60 mL/min/1.73 square metersEnd Stage Renal Disease: Less than 15 mL/min/1.73 square meters Performed By: #### G FR, CMP, PBNP, A1C, TSH ####Katie [address] [place], [place] [address] .NEUABSon 05-17-2023 Neutrophil, Absolute 4.3 10 3/mcL Normal 2.9-6.2 [facility] ([place]) Comment on above: Performed By: #### A DIFF, CBC, ANEU ####Katie [address] [place], [place] [address] A1Con 05-17-2023 HbA1c (Bld) [Mass fraction] 7.7 % High 4.3-6.4 [facility] ([place]) Comment on above: Performed By: #### G FR, CMP, PBNP, A1C, TSH ####Katie [address] [place], [place] [address] CBCon 05-17-2023 Erythrocyte distribution width (RBC) [Ratio] 15.6 % High 11.5-14.5 [facility] ([place]) Comment on above: Performed By: #### A DIFF, CBC, ANEU ####Katie [address] [place], [place] [address] Hematocrit (Bld) [Volume fraction] 26.9 % Low 42.0-52.0 [facility] ([place]) Comment on above: Performed By: #### A DIFF, CBC, ANEU ####Katie [address] [place], [place] [address] Hgb 9.2 G/dL Low 14.0-18.0 [facility] ([place]) Comment on above: Performed By: #### A DIFF, CBC, ANEU ####Katie [address] [place], [place] [address] MCH (RBC) [Entitic mass] 29.0 pg Normal 27.0-31.2 [facility] ([place]) Comment on above: Performed By: #### A DIFF, CBC, ANEU ####Katie [address] [place], [place] [address] MCHC 34.1 G/dL Normal 31.8-35.4 [facility] ([place]) Comment on above: Performed By: #### A DIFF, CBC, ANEU ####Katie [address] [place], [place] [address] MCV (RBC) [Entitic vol] 85.0 fL Normal 80.0-94.0 [facility] ([place]) Comment on above: Performed By: #### A DIFF, CBC, ANEU ####Katie [address] [place], [place] [address] Platelet 91 10 3/mcL Low 130-400 [facility] ([place]) Comment on above: Performed By: #### A DIFF, CBC, ANEU ####Katie [address] [place], [place] [address] Platelet mean volume (Bld) [Entitic vol] 9.1 fL Normal 7.4-10.4 [facility] ([place]) Comment on above: Performed By: #### A DIFF, CBC, ANEU ####[address] [place], [place] [address] RBC 3.16 10 6/mcL Low 4.04-6.13 [facility] ([place]) Comment on above: Performed By: #### A DIFF, CBC, ANEU ####[address] [place], [place] [address] WBC 6.3 10 3/mcL Normal 4.6-10.8 [facility] ([place]) Comment on above: Performed By: #### A DIFF, CBC, ANEU ####[address] [place], [place] [address] CMPon 05-17-2023 Albumin Level 3.1 G/dL Low 3.4-4.8 [facility] ([place]) Comment on above: Performed By: #### G FR, CMP, PBNP, A1C, TSH ####[address] [place], [place] [address] Albumin/Globulin [Mass ratio] 1.1 {ratio} Normal 1.1-2.5 [facility] ([place]) Comment on above: Performed By: #### Jerrell FR, CMP, PBNP, A1C, TSH ####[address] [place], [place] [address] ALP [Catalytic activity/Vol] 66 U/L Normal 40-135 [facility] ([place]) Comment on above: Performed By: #### G FR, CMP, PBNP, A1C, TSH ####[address] [place], [place] [address] ALT [Catalytic activity/Vol] 44 U/L Normal 16-63 [facility] ([place]) Comment on above: Performed By: #### G FR, CMP, PBNP, A1C, TSH ####[address] [place], [place] [address] AST [Catalytic activity/Vol] 17 U/L Normal 10-40 [facility] ([place]) Comment on above: Performed By: #### G FR, CMP, PBNP, A1C, TSH ####[address] [place], [place] [address] Bili Total 0.5 mg/dL Normal 0.2-1.0 [facility] ([place]) Comment on above: Result Comment: Use of this assay is not recommended for patients undergoing treatment with eltrombopag due to the potential for falsely elevated results. Performed By: #### G FR, CMP, PBNP, A1C, TSH ####[address] [place], [place] [address] BUN/Creatinine Ratio 34 ratio High 7-27 [facility] ([place]) Comment on above: Performed By: #### G FR, CMP, PBNP, A1C, TSH ####[address] [place], [place] [address] Calcium [Mass/Vol] 8.5 mg/dL Normal 8.4-10.2 [facility] ([place]) Comment on above: Performed By: #### Jerrell FR, CMP, PBNP, A1C, TSH ####[address] [place], [place] [address] Chloride [Moles/Vol] 109 mmol/L High 98-107 [facility] ([place]) Comment on above: Performed By: #### G FR, CMP, PBNP, A1C, TSH ####[address] [place], [place] [address] CO2 [Moles/Vol] 28 mmol/L Normal 23-31 [facility] ([place]) Comment on above: Performed By: #### G FR, CMP, PBNP, A1C, TSH ####[address] [place], [place] [address] Creatinine [Mass/Vol] 1.70 mg/dL High 0.70-1.30 [facility] ([place]) Comment on above: Performed By: #### G FR, CMP, PBNP, A1C, TSH ####[address] [place], [place] [address] Electrolyte Balance 6.0 mEq/L Normal 4.0-15.0 [facility] ([place]) Comment on above: Performed By: #### G FR, CMP, PBNP, A1C, TSH ####[address] [place], [place] [address] Globulin 2.8 G/dL Normal [facility] ([place]) Comment on above: Performed By: #### G FR, CMP, PBNP, A1C, TSH ####[address] [place], [place] [address] Glucose [Mass/Vol] 184 mg/dL High 83-110 [facility] [place]) Comment on above: Performed By: #### G FR, CMP, PBNP, A1C, TSH ####[address] [place], [place] [address] Potassium [Moles/Vol] 5.0 mmol/L Normal 3.5-5.1 [facility] ([place]) Comment on above: Performed By: #### G FR, CMP, PBNP, A1C, TSH ####[address] [place], [place] [address] Sodium [Moles/Vol] 143 mmol/L Normal 136-145 [facility] [place]) Comment on above: Performed By: #### G FR, CMP, PBNP, A1C, TSH ####[address] [place], [place] [address] Total Protein 5.9 G/dL Low 6.4-8.2 [facility] ([place]) Comment on above: Performed By: #### G FR, CMP, PBNP, A1C, TSH ####[address] [place], [place] [address] Urea nitrogen [Mass/Vol] 58 mg/dL High 7-18 [facility] ([place]) Comment on above: Performed By: #### G FR, CMP, PBNP, A1C, TSH ####[address] [place], [place] [address] LABORATORYOrdered By: SYSTEM SYSTEM on 05-17-2023 Albumin BCP dye [Mass/Vol] 3.1 G/dL Low 3.4 - 4.8 G/dL AO ADM SS Albumin/Globulin [Mass ratio] 1.1 {ratio} Normal 1.1 - 2.5 ratio AO ADM SS ALP [Catalytic activity/Vol] 66 U/L Normal 40 - 135 U/L AO ADM SS ALT With P-5'-P [Catalytic activity/Vol] 44 U/L Normal 16 - 63 U/L AO ADM SS AST With P-5'-P [Catalytic activity/Vol] 17 U/L Normal 10 - 40 U/L AO ADM SS Basophil, Absolute 0.0 103/mcL Normal 0.0 - 0.2 10^3/mcL AO Workflow SS Basophils/100 WBC (Bld) 0.4 % Normal 0.0 - 2.5 % AO Workflow SS Bilirubin [Mass/Vol] 0.5 mg/dL Normal 0.2 - 1 .0 mg/dL AO ADM SS Comment on above: Interpretive Data: U se of this assay is not recommended for patients undergoing treatment with eltrombopag due to the potential for falsely elevated results. Calcium [Mass/Vol] 8.5 mg/dL Normal 8.4 - 10. 2 mg/dL AO ADM SS Chloride [Moles/Vol] 109 mmol/L High 98 - 10 7 mmol/L AO ADM SS CO2 [Moles/Vol] 28 mmol/L Normal 23 - 31 mmol/L AO ADM SS Creatinine [Mass/Vol] 1.70 mg/dL High 0.70 - 1.30 mg/dL AO ADM SS Electrolyte Balance 6.0 mEq/L Normal 4.0 - 15 .0 mEq/L AO ADM SS Eosinophil, Absolute 0.2 103/mcL Normal 0.0 - 0 .4 10^3/mcL AO Workflow SS Eosinophils/100 WBC (Bld) 3.6 % Normal 0.0 - 7.0 % AO Workflow SS Erythrocyte distribution width (RBC) [Ratio] 15.6 % High 11.5 - 14.5 % AO Workflow SS GFR/1.73 sq M.predicted among blacks MDRD (S/P/Bld) [Vol rate/Area] 47 ml/min/1.73sqm Invalid Interpretation Code AO Chemistry S Comment on above: Interpretive Data: GFR Population mean for , Non- Americans Ages 20-29 = 116 mL/min/1.73 sq.m. Ages 30-39 = 107 mL/min/1.73 sq.m. Ages 40-49 = 99 mL/min/1.73 sq.m. Ages 50-59 = 93 mL/min/1.73 sq.m. Ages 60-69 = 85 mL/min/1.73 sq.m. Ages 70+ = 75 mL/min/1.73 sq.m. Chronic Kidney Disease: Less than 60 mL/min/1.73 square meters End Stage Renal Disease: Less than 15 mL/min/1.73 square meters GFR/1.73 sq M.predicted among non-blacks MDRD (S/P/Bld) [Vol rate/Area] 39 ml/min/1.73sqm Invalid Interpretation Code AO Chemistry S Comment on above: Interpretive Data: GFR Population mean for , Non- Americans Ages 20-29 = 116 mL/min/1.73 sq.m. Ages 30-39 = 107 mL/min/1.73 sq.m. Ages 40-49 = 99 mL/min/1.73 sq.m. Ages 50-59 = 93 mL/min/1.73 sq.m. Ages 60-69 = 85 mL/min/1.73 sq.m. Ages 70+ = 75 mL/min/1.73 sq.m. Chronic Kidney Disease: Less than 60 mL/min/1.73 square meters End Stage Renal Disease: Less than 15 mL/min/1.73 square meters Globulin 2.8 G/dL Invalid Interpretation Code AO ADM SS Glucose [Mass/Vol] 184 mg/dL High 83 - 110 mg/dL AO ADM SS HbA1c (Bld) [Mass fraction] 7.7 % High 4.3 - 6.4 % AO ADM SS Hematocrit (Bld) [Volume fraction] 26.9 % Low 42.0 - 52.0 % AO Workflow SS Hemoglobin (Bld) [Mass/Vol] 9.2 G/dL Low 14.0 - 18.0 G/dL AO Workflow SS Lymphocyte, Absolute 1.2 103/mcL Normal 0.8 - 3 .9 10^3/mcL AO Workflow SS Lymphocytes/100 WBC (Bld) 19.6 % Normal 10.0 - 50.0 % AO Workflow SS MCH (RBC) [Entitic mass] 29.0 pg Normal 27. 0 - 31.2 pg AO Workflow SS MCHC 34.1 G/dL Normal 31.8 - 35.4 G/dL AO Workflow SS MCV (RBC) [Entitic vol] 85.0 fL Normal 80.0 - 94.0 fL AO Workflow SS Monocyte, Absolute 0.5 103/mcL Normal 0.2 - 1.0 10^3/mcL AO Workflow SS Monocytes/100 WBC (Bld) 7.9 % Normal 1.7 - 13.0 % AO Workflow SS Natriuretic peptide.B prohormone N-Terminal [Mass/Vol] 2219 pg/mL High 0 - 450 pg/mL AO ADM SS Comment on above: Interpretive Data: N T-proBNP results of less than 300 pg/mL effectively rules out acute congestive heart failure with 99% negative predictive value. Neutrophil, Absolute 4.3 103/mcL Normal 2.9 - 6 .2 10^3/mcL AO Workflow SS Neutrophils/100 WBC (Bld) 68.5 % Normal 37.0 - 80.0 % AO Workflow SS Platelet mean volume (Bld) [Entitic vol] 9.1 fL Normal 7.4 - 10.4 fL AO Workflow SS Platelets (Bld) [#/Vol] 91 103/mcL Low 130 - 400 10^3/mcL AO Workflow SS Potassium [Moles/Vol] 5.0 mmol/L Normal 3.5 - 5.1 mmol/L AO ADM SS Protein [Mass/Vol] 5.9 G/dL Low 6.4 - 8.2 G/dL AO ADM SS RBC (Bld) [#/Vol] 3.16 106/mcL Low 4.04 - 6.1 3 10^6/mcL AO Workflow SS Sodium [Moles/Vol] 143 mmol/L Normal 136 - 145 mmol/L AO ADM SS TSH Qn 2.36 m[IU]/L Normal 0.36 - 3.74 mcIU/mL AO ADM SS Urea nitrogen [Mass/Vol] 58 mg/dL High 7 - 18 mg/dL AO ADM SS Urea nitrogen/Creatinine [Mass ratio] 34 ratio High 7 - 27 ratio AO ADM SS WBC (Bld) [#/Vol] 6.3 103/mcL Normal 4.6 - 10.8 10^3/mcL AO Workflow SS PBNPon 05-17-2023 Natriuretic peptide B (Bld) [Mass/Vol] 2219 pg/mL High 0-450 [facility] ([place]) Comment on above: Result Comment: NT-p roBNP results of less than 300 pg/mL effectivelyrules out acute congestive heart failure with 99% negative predictive value. Performed By: #### G FR, CMP, PBNP, A1C, TSH ####[address] [place], [place] [address] TSHon 05-17-2023 TSH Qn 2.36 m[IU]/L Normal 0.36-3.74 [facility] ([place]) Comment on above: Performed By: #### G FR, CMP, PBNP, A1C, TSH ####[address] [place], [place] [address] .Auto Diffon 05-08-2023 Basophil, Absolute 0.0 10 3/mcL Normal 0.0-0.2 [facility] ([place]) Comment on above: Performed By: #### G FR, CBC, MG, ANEU, ADIFF, BMP ####[address] [place], [place] [address] Basophils/100 WBC (Bld) 0.0 % Normal 0.0-2.5 [facility] ([place]) Comment on above: Performed By: #### Jerrell FR, CBC, MG, ANEU, ADIFF, BMP ####[address] [place], [place] [address] Eosinophil, Absolute 0.0 10 3/mcL Normal 0.0-0.4 [facility] ([place]) Comment on above: Performed By: #### Jerrell FR, CBC, MG, ANEU, ADIFF, BMP ####[address] [place], [place] [address] Eosinophils/100 WBC (Bld) 0.0 % Normal 0.0-7.0 [facility] ([place]) Comment on above: Performed By: #### G FR, CBC, MG, ANEU, ADIFF, BMP ####[address] [place], [place] [address] Lymphocyte, Absolute 0.7 10 3/mcL Low 0.8-3.9 [facility] ([place]) Comment on above: Performed By: #### G FR, CBC, MG, ANEU, ADIFF, BMP ####[address] [place], [place] [address] Lymphocytes/100 WBC (Bld) 11.0 % Normal 10.0-50.0 [facility] ([place]) Comment on above: Performed By: #### G FR, CBC, MG, ANEU, ADIFF, BMP ####[address] [place], [place] [address] Monocyte, Absolute 0.1 10 3/mcL Low 0.2-1.0 [facility] ([place]) Comment on above: Performed By: #### G FR, CBC, MG, ANEU, ADIFF, BMP ####[address] [place], [place] [address] Monocytes/100 WBC (Bld) 1.4 % Low 1.7-13.0 [facility] ([place]) Comment on above: Performed By: #### G FR, CBC, MG, ANEU, ADIFF, BMP ####[address] [place], [place] [address] Neutrophils/100 WBC (Bld) 87.6 % High 37.0-80.0 [facility] ([place]) Comment on above: Performed By: #### G FR, CBC, MG, ANEU, ADIFF, BMP ####[address] [place], [place] [address] .GFRon 05-08-2023 GFR Non- 26 ml/min/1.73sqm Normal [facility] ([place]) Comment on above: Result Comment: GFR Population mean for , Non- Americans Ages 20-29 = 116 mL/min/1.73 sq.m. Ages 30-39 = 107 mL/min/1.73 sq.m. Ages 40-49 = 99 mL/min/1.73 sq.m. Ages 50-59 = 93 mL/min/1.73 sq.m. Ages 60-69 = 85 mL/min/1.73 sq.m. Ages 70+ = 75 mL/min/1.73 sq.m.Chronic Kidney Disease: Less than 60 mL/min/1.73 square metersEnd Stage Renal Disease: Less than 15 mL/min/1.73 square meters Performed By: #### G FR, CBC, MG, ANEU, ADIFF, BMP ####[address] [place], [place] [address] GFR 31 ml/min/1.73sqm Normal [facility] ([place]) Comment on above: Result Comment: GFR Population mean for , Non- Americans Ages 20-29 = 116 mL/min/1.73 sq.m. Ages 30-39 = 107 mL/min/1.73 sq.m. Ages 40-49 = 99 mL/min/1.73 sq.m. Ages 50-59 = 93 mL/min/1.73 sq.m. Ages 60-69 = 85 mL/min/1.73 sq.m. Ages 70+ = 75 mL/min/1.73 sq.m.Chronic Kidney Disease: Less than 60 mL/min/1.73 square metersEnd Stage Renal Disease: Less than 15 mL/min/1.73 square meters Performed By: #### G FR, CBC, MG, ANEU, ADIFF, BMP ####[address] [place], [place] [address] .NEUABSon 05-08-2023 Neutrophil, Absolute 5.2 10 3/mcL Normal 2.9-6.2 [facility] ([place]) Comment on above: Performed By: #### G FR, CBC, MG, ANEU, ADIFF, BMP ####[address] [place], [place] [address] BMPon 05-08-2023 BUN/Creatinine Ratio 22 ratio Normal 7-27 [facility] ([place]) Comment on above: Performed By: #### G FR, CBC, MG, ANEU, ADIFF, BMP ####[address] [place], [place] [address] Calcium [Mass/Vol] 9.4 mg/dL Normal 8.4-10.2 [facility] ([place]) Comment on above: Performed By: #### G FR, CBC, MG, ANEU, ADIFF, BMP ####[address] [place], [place] [address] Chloride [Moles/Vol] 103 mmol/L Normal 98-107 [facility] ([place]) Comment on above: Performed By: #### G FR, CBC, MG, ANEU, ADIFF, BMP ####[address] [place], [place] [address] CO2 [Moles/Vol] 31 mmol/L Normal 23-31 [facility] ([place]) Comment on above: Performed By: #### G FR, CBC, MG, ANEU, ADIFF, BMP ####[address] [place], [place] [address] Creatinine [Mass/Vol] 2.42 mg/dL High 0.70-1.30 [facility] ([place]) Comment on above: Performed By: #### G FR, CBC, MG, ANEU, ADIFF, BMP ####[address] [place], [place] [address] Electrolyte Balance 5.0 mEq/L Normal 4.0-15.0 [facility] ([place]) Comment on above: Performed By: #### G FR, CBC, MG, ANEU, ADIFF, BMP ####[address] [place], [place] [address] Glucose [Mass/Vol] 211 mg/dL High 83-110 [facility] [place]) Comment on above: Performed By: #### G FR, CBC, MG, ANEU, ADIFF, BMP ####[address] [place], [place] [address] Potassium [Moles/Vol] 5.9 mmol/L High 3.5-5.1 [facility] ([place]) Comment on above: Performed By: #### G FR, CBC, MG, ANEU, ADIFF, BMP ####[address] [place], [place] [address] Sodium [Moles/Vol] 139 mmol/L Normal 136-145 [facility] [place]) Comment on above: Performed By: #### G FR, CBC, MG, ANEU, ADIFF, BMP ####[address] [place], [place] [address] Urea nitrogen [Mass/Vol] 54 mg/dL High 7-18 [facility] ([place]) Comment on above: Performed By: #### G FR, CBC, MG, ANEU, ADIFF, BMP ####[address] [place], [place] [address] CBCon 05-08-2023 Erythrocyte distribution width (RBC) [Ratio] 15.2 % High 11.5-14.5 [facility] ([place]) Comment on above: Performed By: #### G FR, CBC, MG, ANEU, ADIFF, BMP ####[address] [place], [place] [address] Hematocrit (Bld) [Volume fraction] 28.2 % Low 42.0-52.0 [facility] ([place]) Comment on above: Performed By: #### G FR, CBC, MG, ANEU, ADIFF, BMP ####[address] [place], [place] [address] Hgb 9.5 G/dL Low 14.0-18.0 [facility] ([place]) Comment on above: Performed By: #### G FR, CBC, MG, ANEU, ADIFF, BMP ####[address] [place], [place] [address] MCH (RBC) [Entitic mass] 28.2 pg Normal 27.0-31.2 [facility] ([place]) Comment on above: Performed By: #### G FR, CBC, MG, ANEU, ADIFF, BMP ####[address] [place], [place] [address] MCHC 33.5 G/dL Normal 31.8-35.4 [facility] ([place]) Comment on above: Performed By: #### G FR, CBC, MG, ANEU, ADIFF, BMP ####[address] [place], [place] [address] MCV (RBC) [Entitic vol] 84.2 fL Normal 80.0-94.0 [facility] ([place]) Comment on above: Performed By: #### G FR, CBC, MG, ANEU, ADIFF, BMP ####[address] [place], [place] [address] Platelet 106 10 3/mcL Low 130-400 [facility] ([place]) Comment on above: Performed By: #### G FR, CBC, MG, ANEU, ADIFF, BMP ####[address] [place], [place] [address] Platelet mean volume (Bld) [Entitic vol] 9.5 fL Normal 7.4-10.4 [facility] ([place]) Comment on above: Performed By: #### G FR, CBC, MG, ANEU, ADIFF, BMP ####[address] [place], [place] [address] RBC 3.36 10 6/mcL Low 4.04-6.13 [facility] ([place]) Comment on above: Performed By: #### G FR, CBC, MG, ANEU, ADIFF, BMP ####[address] [place], [place] [address] WBC 6.0 10 3/mcL Normal 4.6-10.8 [facility] ([place]) Comment on above: Performed By: #### G FR, CBC, MG, ANEU, ADIFF, BMP ####[address] [place], [place] [address] LABORATORYOrdered By: Zia Milton on 05-08-2023 Blood Glucose Testing Reason Routine (05/08/23 11:57 AM) [facility] Work Phone: Glucose [Mass/Vol] 301 mg/dL High 82 - 115 mg/dL [facility] Work Phone: LABORATORYOrdered By: Johnnie Bustos on 05-08-2023 Blood Glucose Testing Reason Routine (05/08/23 8:39 AM) [facility] Work Phone: Glucose [Mass/Vol] 186 mg/dL High 82 - 115 mg/dL [facility] Work Phone: LABORATORYOrdered By: SYSTEM SYSTEM on 05-08-2023 Basophil, Absolute 0.0 103/mcL Normal 0.0 - 0.2 10^3/mcL AO Workflow SS Basophils/100 WBC (Bld) 0.0 % Normal 0.0 - 2.5 % AO Workflow SS Calcium [Mass/Vol] 9.4 mg/dL Normal 8.4 - 10. 2 mg/dL AO ADM SS Chloride [Moles/Vol] 103 mmol/L Normal 98 - 10 7 mmol/L AO ADM SS CO2 [Moles/Vol] 31 mmol/L Normal 23 - 31 mmol/L AO ADM SS Creatinine [Mass/Vol] 2.42 mg/dL High 0.70 - 1.30 mg/dL AO ADM SS Electrolyte Balance 5.0 mEq/L Normal 4.0 - 15 .0 mEq/L AO ADM SS Eosinophil, Absolute 0.0 103/mcL Normal 0.0 - 0 .4 10^3/mcL AO Workflow SS Eosinophils/100 WBC (Bld) 0.0 % Normal 0.0 - 7.0 % AO Workflow SS Erythrocyte distribution width (RBC) [Ratio] 15.2 % High 11.5 - 14.5 % AO Workflow SS GFR/1.73 sq M.predicted among blacks MDRD (S/P/Bld) [Vol rate/Area] 31 ml/min/1.73sqm Invalid Interpretation Code AO Chemistry S Comment on above: Interpretive Data: GFR Population mean for , Non- Americans Ages 20-29 = 116 mL/min/1.73 sq.m. Ages 30-39 = 107 mL/min/1.73 sq.m. Ages 40-49 = 99 mL/min/1.73 sq.m. Ages 50-59 = 93 mL/min/1.73 sq.m. Ages 60-69 = 85 mL/min/1.73 sq.m. Ages 70+ = 75 mL/min/1.73 sq.m. Chronic Kidney Disease: Less than 60 mL/min/1.73 square meters End Stage Renal Disease: Less than 15 mL/min/1.73 square meters GFR/1.73 sq M.predicted among non-blacks MDRD (S/P/Bld) [Vol rate/Area] 26 ml/min/1.73sqm Invalid Interpretation Code AO Chemistry S Comment on above: Interpretive Data: GFR Population mean for , Non- Americans Ages 20-29 = 116 mL/min/1.73 sq.m. Ages 30-39 = 107 mL/min/1.73 sq.m. Ages 40-49 = 99 mL/min/1.73 sq.m. Ages 50-59 = 93 mL/min/1.73 sq.m. Ages 60-69 = 85 mL/min/1.73 sq.m. Ages 70+ = 75 mL/min/1.73 sq.m. Chronic Kidney Disease: Less than 60 mL/min/1.73 square meters End Stage Renal Disease: Less than 15 mL/min/1.73 square meters Glucose [Mass/Vol] 211 mg/dL High 83 - 110 mg/dL AO ADM SS Hematocrit (Bld) [Volume fraction] 28.2 % Low 42.0 - 52.0 % AO Workflow SS Hemoglobin (Bld) [Mass/Vol] 9.5 G/dL Low 14.0 - 18.0 G/dL AO Workflow SS Lymphocyte, Absolute 0.7 103/mcL Low 0.8 - 3 .9 10^3/mcL AO Workflow SS Lymphocytes/100 WBC (Bld) 11.0 % Normal 10.0 - 50.0 % AO Workflow SS Magnesium [Mass/Vol] 1.9 mg/dL Normal 1.8 - 2 .4 mg/dL AO ADM SS MCH (RBC) [Entitic mass] 28.2 pg Normal 27. 0 - 31.2 pg AO Workflow SS MCHC 33.5 G/dL Normal 31.8 - 35.4 G/dL AO Workflow SS MCV (RBC) [Entitic vol] 84.2 fL Normal 80.0 - 94.0 fL AO Workflow SS Monocyte, Absolute 0.1 103/mcL Low 0.2 - 1.0 10^3/mcL AO Workflow SS Monocytes/100 WBC (Bld) 1.4 % Low 1.7 - 13.0 % AO Workflow SS Neutrophil, Absolute 5.2 103/mcL Normal 2.9 - 6 .2 10^3/mcL AO Workflow SS Neutrophils/100 WBC (Bld) 87.6 % High 37.0 - 80.0 % AO Workflow SS Platelet mean volume (Bld) [Entitic vol] 9.5 fL Normal 7.4 - 10.4 fL AO Workflow SS Platelets (Bld) [#/Vol] 106 103/mcL Low 130 - 400 10^3/mcL AO Workflow SS Potassium [Moles/Vol] 5.9 mmol/L High 3.5 - 5.1 mmol/L AO ADM SS RBC (Bld) [#/Vol] 3.36 106/mcL Low 4.04 - 6.1 3 10^6/mcL AO Workflow SS Sodium [Moles/Vol] 139 mmol/L Normal 136 - 145 mmol/L AO ADM SS Urea nitrogen [Mass/Vol] 54 mg/dL High 7 - 18 mg/dL AO ADM SS Urea nitrogen/Creatinine [Mass ratio] 22 ratio Normal 7 - 27 ratio AO ADM SS WBC (Bld) [#/Vol] 6.0 103/mcL Normal 4.6 - 10.8 10^3/mcL AO Workflow SS MGon 05-08-2023 Magnesium [Mass/Vol] 1.9 mg/dL Normal 1.8-2.4 [facility] ([place]) Comment on above: Performed By: #### G FR, CBC, MG, ANEU, ADIFF, BMP ####[address] [place], [place] [address] .Auto Diffon 05-07-2023 Basophil, Absolute 0.1 10 3/mcL Normal 0.0-0.2 [facility] ([place]) Comment on above: Performed By: #### C BC, ADIFF, BMP, PBNP, GFR, ANEU, MDW, TROPHS ####[address] [place], [place] [address] Basophils/100 WBC (Bld) 0.7 % Normal 0.0-2.5 [facility] ([place]) Comment on above: Performed By: #### C BC, ADIFF, BMP, PBNP, GFR, ANEU, MDW, TROPHS ####[address] [place], [place] [address] Eosinophil, Absolute 0.4 10 3/mcL Normal 0.0-0.4 [facility] ([place]) Comment on above: Performed By: #### C BC, ADIFF, BMP, PBNP, GFR, ANEU, MDW, TROPHS ####[address] [place], [place] [address] Eosinophils/100 WBC (Bld) 5.2 % Normal 0.0-7.0 [facility] ([place]) Comment on above: Performed By: #### C BC, ADIFF, BMP, PBNP, GFR, ANEU, MDW, TROPHS ####[address] [place], [place] [address] Lymphocyte, Absolute 1.6 10 3/mcL Normal 0.8-3.9 [facility] ([place]) Comment on above: Performed By: #### C BC, ADIFF, BMP, PBNP, GFR, ANEU, W, TROPHS ####[address] [place], [place] [address] Lymphocytes/100 WBC (Bld) 21.2 % Normal 10.0-50.0 [facility] ([place]) Comment on above: Performed By: #### C BC, ADIFF, BMP, PBNP, GFR, ANEU, MDW, TROPHS ####[address] [place], [place] [address] Monocyte, Absolute 0.5 10 3/mcL Normal 0.2-1.0 [facility] ([place]) Comment on above: Performed By: #### C BC, ADIFF, BMP, PBNP, GFR, ANEU, MDW, TROPHS ####[address] [place], [place] [address] Monocytes/100 WBC (Bld) 6.7 % Normal 1.7-13.0 [facility] ([place]) Comment on above: Performed By: #### C BC, ADIFF, BMP, PBNP, GFR, ANEU, MDW, TROPHS ####[address] [place], [place] [address] Neutrophils/100 WBC (Bld) 66.2 % Normal 37.0-80.0 [facility] ([place]) Comment on above: Performed By: #### C BC, ADIFF, BMP, PBNP, GFR, ANEU, MDW, TROPHS ####[address] [place], [place] [address] .GFRon 05-07-2023 GFR 31 ml/min/1.73sqm Normal [facility] ([place]) Comment on above: Result Comment: GFR Population mean for , Non- Americans Ages 20-29 = 116 mL/min/1.73 sq.m. Ages 30-39 = 107 mL/min/1.73 sq.m. Ages 40-49 = 99 mL/min/1.73 sq.m. Ages 50-59 = 93 mL/min/1.73 sq.m. Ages 60-69 = 85 mL/min/1.73 sq.m. Ages 70+ = 75 mL/min/1.73 sq.m.Chronic Kidney Disease: Less than 60 mL/min/1.73 square metersEnd Stage Renal Disease: Less than 15 mL/min/1.73 square meters Performed By: #### C BC, ADIFF, BMP, PBNP, GFR, ANEU, MDW, TROPHS ####[address] [place], [place] [address] GFR Non- 26 ml/min/1.73sqm Normal [facility] ([place]) Comment on above: Result Comment: GFR Population mean for , Non- Americans Ages 20-29 = 116 mL/min/1.73 sq.m. Ages 30-39 = 107 mL/min/1.73 sq.m. Ages 40-49 = 99 mL/min/1.73 sq.m. Ages 50-59 = 93 mL/min/1.73 sq.m. Ages 60-69 = 85 mL/min/1.73 sq.m. Ages 70+ = 75 mL/min/1.73 sq.m.Chronic Kidney Disease: Less than 60 mL/min/1.73 square metersEnd Stage Renal Disease: Less than 15 mL/min/1.73 square meters Performed By: #### C BC, ADIFF, BMP, PBNP, GFR, ANEU, MDW, TROPHS ####[address] [place], [place] [address] .MDWon 05-07-2023 Monocyte Distribution Width 17.51 Normal 0.00-20.00 [facility] ([place]) Comment on above: Result Comment: For ED adult patients suspected of sepsis, MDW<=20.0 does not rule out sepsis or risk of sepsis Performed By: #### C BC, ADIFF, BMP, PBNP, GFR, ANEU, MDW, TROPHS ####[address] [place], [place] [address] .NEUABSon 05-07-2023 Neutrophil, Absolute 5.1 10 3/mcL Normal 2.9-6.2 [facility] ([place]) Comment on above: Performed By: #### C BC, ADIFF, BMP, PBNP, GFR, ANEU, MDW, TROPHS ####[address] [place], [place] [address] BMPon 05-07-2023 BUN/Creatinine Ratio 18 ratio Normal 7-27 [facility] ([place]) Comment on above: Performed By: #### C BC, ADIFF, BMP, PBNP, GFR, ANEU, MDW, TROPHS ####[address] [place], [place] [address] Calcium [Mass/Vol] 9.3 mg/dL Normal 8.4-10.2 [facility] ([place]) Comment on above: Performed By: #### C BC, ADIFF, BMP, PBNP, GFR, ANEU, MDW, TROPHS ####[address] [place], [place] [address] Chloride [Moles/Vol] 104 mmol/L Normal 98-107 [facility] ([place]) Comment on above: Performed By: #### C BC, ADIFF, BMP, PBNP, GFR, ANEU, MDW, TROPHS ####[address] [place], [place] [address] CO2 [Moles/Vol] 37 mmol/L High 23-31 [facility] ([place]) Comment on above: Performed By: #### C BC, ADIFF, BMP, PBNP, GFR, ANEU, MDW, TROPHS ####[address] [place], [place] [address] Creatinine [Mass/Vol] 2.43 mg/dL High 0.70-1.30 [facility] ([place]) Comment on above: Performed By: #### C BC, ADIFF, BMP, PBNP, GFR, ANEU, MDW, TROPHS ####[address] [place], [place] [address] Electrolyte Balance 4.0 mEq/L Normal 4.0-15.0 [facility] ([place]) Comment on above: Performed By: #### C BC, ADIFF, BMP, PBNP, GFR, ANEU, MDW, TROPHS ####[address] [place], [place] [address] Glucose [Mass/Vol] 129 mg/dL High 83-110 [facility] ([place] Comment on above: Performed By: #### C BC, ADIFF, BMP, PBNP, GFR, ANEU, MDW, TROPHS ####[address] [place], [place] [address] Potassium [Moles/Vol] 5.2 mmol/L High 3.5-5.1 [facility] ([place]) Comment on above: Performed By: #### C BC, ADIFF, BMP, PBNP, GFR, ANEU, MDW, TROPHS ####[address] [place], [place] [address] Sodium [Moles/Vol] 145 mmol/L Normal 136-145 [facility] ([place]) Comment on above: Performed By: #### C BC, ADIFF, BMP, PBNP, GFR, ANEU, MDW, TROPHS ####[address] [place], [place] [address] Urea nitrogen [Mass/Vol] 44 mg/dL High 7-18 [facility] ([place]) Comment on above: Performed By: #### C BC, ADIFF, BMP, PBNP, GFR, ANEU, MDW, TROPHS ####[address] [place], [place] [address] CBCon 05-07-2023 Erythrocyte distribution width (RBC) [Ratio] 15.3 % High 11.5-14.5 [facility] ([place]) Comment on above: Performed By: #### C BC, ADIFF, BMP, PBNP, GFR, ANEU, MDW, TROPHS ####[address] [place], [place] [address] Hematocrit (Bld) [Volume fraction] 29.4 % Low 42.0-52.0 [facility] ([place]) Comment on above: Performed By: #### C BC, ADIFF, BMP, PBNP, GFR, ANEU, MDW, TROPHS ####[address] [place], [place] [address] Hgb 9.9 G/dL Low 14.0-18.0 [facility] ([place]) Comment on above: Performed By: #### C BC, ADIFF, BMP, PBNP, GFR, ANEU, MDW, TROPHS ####[address] [place], [place] [address] MCH (RBC) [Entitic mass] 28.2 pg Normal 27.0-31.2 [facility] ([place]) Comment on above: Performed By: #### C BC, ADIFF, BMP, PBNP, GFR, ANEU, MDW, TROPHS ####[address] [place], [place] [address] MCHC 33.5 G/dL Normal 31.8-35.4 [facility] ([place]) Comment on above: Performed By: #### C BC, ADIFF, BMP, PBNP, GFR, ANEU, MDW, TROPHS ####[address] [place], [place] [address] MCV (RBC) [Entitic vol] 84.3 fL Normal 80.0-94.0 [facility] ([place]) Comment on above: Performed By: #### C BC, ADIFF, BMP, PBNP, GFR, ANEU, MDW, TROPHS ####[address] [place], [place] [address] Platelet 134 10 3/mcL Normal 130-400 [facility] ([place]) Comment on above: Performed By: #### C BC, ADIFF, BMP, PBNP, GFR, ANEU, MDW, TROPHS ####[address] [place], [place] [address] Platelet mean volume (Bld) [Entitic vol] 8.8 fL Normal 7.4-10.4 [facility] ([place]) Comment on above: Performed By: #### C BC, ADIFF, BMP, PBNP, GFR, ANEU, MDW, TROPHS ####[address] [place], [place] [address] RBC 3.49 10 6/mcL Low 4.04-6.13 [facility] ([place]) Comment on above: Performed By: #### C BC, ADIFF, BMP, PBNP, GFR, ANEU, MDW, TROPHS ####[address] [place], [place] [address] WBC 7.7 10 3/mcL Normal 4.6-10.8 [facility] ([place]) Comment on above: Performed By: #### C BC, ADDEE, BMP, PBNP, GFR, KARRIE, RAJAT, TROPHS ####[address] [place], [place] [address] LABORATORYOrdered By: Maxine Ingram on 05-07-2023 Blood Glucose Testing Reason Routine (05/07/23 9:37 PM) [facility] Work Phone: Glucose [Mass/Vol] 368 mg/dL High 82 - 115 mg/dL [facility] Work Phone: LABORATORYOrdered By: SYSTEM SYSTEM on 05-07-2023 Basophil, Absolute 0.1 103/mcL Normal 0.0 - 0.2 10^3/mcL AO Workflow SS Basophils/100 WBC (Bld) 0.7 % Normal 0.0 - 2.5 % AO Workflow SS Calcium [Mass/Vol] 9.3 mg/dL Normal 8.4 - 10. 2 mg/dL AO ADM SS Chloride [Moles/Vol] 104 mmol/L Normal 98 - 10 7 mmol/L AO ADM SS CO2 [Moles/Vol] 37 mmol/L High 23 - 31 mmol/L AO ADM SS Creatinine [Mass/Vol] 2.43 mg/dL High 0.70 - 1.30 mg/dL AO ADM SS Electrolyte Balance 4.0 mEq/L Normal 4.0 - 15 .0 mEq/L AO ADM SS Eosinophil, Absolute 0.4 103/mcL Normal 0.0 - 0 .4 10^3/mcL AO Workflow SS Eosinophils/100 WBC (Bld) 5.2 % Normal 0.0 - 7.0 % AO Workflow SS Erythrocyte distribution width (RBC) [Ratio] 15.3 % High 11.5 - 14.5 % AO Workflow SS GFR/1.73 sq M.predicted among blacks MDRD (S/P/Bld) [Vol rate/Area] 31 ml/min/1.73sqm Invalid Interpretation Code AO Chemistry S Comment on above: Interpretive Data: GFR Population mean for , Non- Americans Ages 20-29 = 116 mL/min/1.73 sq.m. Ages 30-39 = 107 mL/min/1.73 sq.m. Ages 40-49 = 99 mL/min/1.73 sq.m. Ages 50-59 = 93 mL/min/1.73 sq.m. Ages 60-69 = 85 mL/min/1.73 sq.m. Ages 70+ = 75 mL/min/1.73 sq.m. Chronic Kidney Disease: Less than 60 mL/min/1.73 square meters End Stage Renal Disease: Less than 15 mL/min/1.73 square meters GFR/1.73 sq M.predicted among non-blacks MDRD (S/P/Bld) [Vol rate/Area] 26 ml/min/1.73sqm Invalid Interpretation Code AO Chemistry S Comment on above: Interpretive Data: GFR Population mean for , Non- Americans Ages 20-29 = 116 mL/min/1.73 sq.m. Ages 30-39 = 107 mL/min/1.73 sq.m. Ages 40-49 = 99 mL/min/1.73 sq.m. Ages 50-59 = 93 mL/min/1.73 sq.m. Ages 60-69 = 85 mL/min/1.73 sq.m. Ages 70+ = 75 mL/min/1.73 sq.m. Chronic Kidney Disease: Less than 60 mL/min/1.73 square meters End Stage Renal Disease: Less than 15 mL/min/1.73 square meters Glucose [Mass/Vol] 129 mg/dL High 83 - 110 mg/dL AO ADM SS Hematocrit (Bld) [Volume fraction] 29.4 % Low 42.0 - 52.0 % AO Workflow SS Hemoglobin (Bld) [Mass/Vol] 9.9 G/dL Low 14.0 - 18.0 G/dL AO Workflow SS Lymphocyte, Absolute 1.6 103/mcL Normal 0.8 - 3 .9 10^3/mcL AO Workflow SS Lymphocytes/100 WBC (Bld) 21.2 % Normal 10.0 - 50.0 % AO Workflow SS MCH (RBC) [Entitic mass] 28.2 pg Normal 27. 0 - 31.2 pg AO Workflow SS MCHC 33.5 G/dL Normal 31.8 - 35.4 G/dL AO Workflow SS MCV (RBC) [Entitic vol] 84.3 fL Normal 80.0 - 94.0 fL AO Workflow SS Monocyte distribution width Auto (Bld) [Entitic vol] 17.51 1 Normal 0.00 - 20.00 AO Workflow SS Comment on above: Result Comment: For ED adult patients suspected of sepsis, MDW<=20.0 does not rule out sepsis or risk of sepsis Monocyte, Absolute 0.5 103/mcL Normal 0.2 - 1.0 10^3/mcL AO Workflow SS Monocytes/100 WBC (Bld) 6.7 % Normal 1.7 - 13.0 % AO Workflow SS Natriuretic peptide.B prohormone N-Terminal [Mass/Vol] 1374 pg/mL High 0 - 450 pg/mL AO ADM SS Comment on above: Interpretive Data: N T-proBNP results of less than 300 pg/mL effectively rules out acute congestive heart failure with 99% negative predictive value. Neutrophil, Absolute 5.1 103/mcL Normal 2.9 - 6 .2 10^3/mcL AO Workflow SS Neutrophils/100 WBC (Bld) 66.2 % Normal 37.0 - 80.0 % AO Workflow SS Platelet mean volume (Bld) [Entitic vol] 8.8 fL Normal 7.4 - 10.4 fL AO Workflow SS Platelets (Bld) [#/Vol] 134 103/mcL Normal 130 - 400 10^3/mcL AO Workflow SS Potassium [Moles/Vol] 5.2 mmol/L High 3.5 - 5.1 mmol/L AO ADM SS RBC (Bld) [#/Vol] 3.49 106/mcL Low 4.04 - 6.1 3 10^6/mcL AO Workflow SS Sodium [Moles/Vol] 145 mmol/L Normal 136 - 145 mmol/L AO ADM SS Troponin I.cardiac DL <= 0.01 ng/mL [Mass/Vol] 22.1 ng/L Normal 0.0 - 76.2 ng/L AO ADM SS Urea nitrogen [Mass/Vol] 44 mg/dL High 7 - 18 mg/dL AO ADM SS Urea nitrogen/Creatinine [Mass ratio] 18 ratio Normal 7 - 27 ratio AO ADM SS WBC (Bld) [#/Vol] 7.7 103/mcL Normal 4.6 - 10.8 10^3/mcL AO Workflow SS PBNPon 05-07-2023 Natriuretic peptide B (Bld) [Mass/Vol] 1374 pg/mL High 0-450 [facility] ([place]) Comment on above: Result Comment: NT-p roBNP results of less than 300 pg/mL effectivelyrules out acute congestive heart failure with 99% negative predictive value. Performed By: #### C BC, ADDEE, BMP, PBNP, GFR, RAJAT YOON, SNEHA ####[address] [place], [place] [address] TROPHSon 05-07-2023 Troponin I High Sensitivity 22.1 ng/L Normal 0.0-76.2 [facility] ([place]) Comment on above: Performed By: #### C BC, ADIFF, BMP, PBNP, GFR, RAJAT YOON, SNEHA ####[address] [place], [place] [address] XR CHEST 1 VIEWon 05-07-2023 XR CHEST 1 VIEW Normal [facility] ([place]) Basophil percentageOrdered B y: Talya Nichols on 05-04-2023 Bilirubin [Mass/Vol] 0.50 mg/dL 0.20-1.00 [facility] Comment on above: For patients on eltr ombopag therapy, use of Dimension [place] TBIL is not recommended. Chloride [Moles/Vol] 102 mmol/L 98-107 [facility] Glucose [Mass/Vol] 212 mg/dL 74-106 [facility] Comment on above: Glucose result great er than or equal to 200 mg/dLsuggests DIABETES MELLITUS per A.D.A. criteria. Hemoglobin (Bld) [Mass/Vol] 8.8 g/dL 13.0-16.5 [facility] Potassium [Moles/Vol] 4.3 mmol/L 3.5-5.1 [facility] Protein [Mass/Vol] 6.8 g/dL 6.4-8.2 [facility] Sodium [Moles/Vol] 143 mmol/L 136-145 [facility] WBC (Bld) [#/Vol] 5.0 10*3/uL 4.4-11.0 [facility] Determination of erythrocyte mean corpuscular volume (MCV)Ordered By: Talya Nichols on 05-04-2023 MCV (RBC) [Entitic vol] 91.9 fL 80-94 [facility] Erythrocyte distribution wid th ratioOrdered By: Talya Nichols on 05-04-2023 Erythrocyte distribution width (RBC) [Ratio] 14.1 % 11.6-14.6 [facility] Erythrocyte distribution wid th standard deviationOrdered By: Talya Nichols on 05-04-2023 Erythrocyte distribution width (RBC) [Entitic vol] 47.2 fL 35.1-43.9 [facility] Hematocrit Auto (Bld) [Volum e fraction]Ordered By: Talya Nichols on 05-04-2023 Hematocrit (Bld) [Volume fraction] 29.6 % 40-54 [facility] Laboratory - Chemistry and C hemistry - challengeOrdered By: Talya Nichols on 05-04-2023 Albumin/Globulin [Mass ratio] 0.9 {ratio} 0.9-2.4 [facility] ALP [Catalytic activity/Vol] 74 U/L 45-117 [facility] ALT [Catalytic activity/Vol] 23 U/L 16-61 [facility] CO2 [Moles/Vol] 37.0 mmol/L 21.0-32.0 [facility] Globulin (S) [Mass/Vol] 3.6 g/dL 2.2-4.2 [facility] Natriuretic peptide B (Bld) [Mass/Vol] 253.6 pg/mL 0-100 [facility] Urea nitrogen/Creatinine [Mass ratio] 22.9 mg/mg 10-20 [facility] Laboratory - Hematology and Cell countsOrdered By: Talya Nichols on 05-04-2023 MCH (RBC) [Entitic mass] 27.3 pg 27.0-32.0 [facility] MCHC (RBC) [Mass/Vol] 29.7 g/dL 32-36 [facility] Platelet mean volume (Bld) [Entitic vol] 12.2 fL 6.2-12.0 [facility] Platelets (Bld) [#/Vol] 122 10*3/uL 150-450 [facility] No Panel InformationOrdered By: Talya Nichols on 05-04-2023 Estimated GFR (MDRD) Amer 39 mL/min >60 [facility] Comment on above: GFR Calc Estimated GFR (MDRD) Non-Af Amer 32 mL/min >60 [facility] Comment on above: Non- GFR Calc RBC Auto (Bld) [#/Vol]Ordere d By: Talya Nichols on 05-04-2023 RBC (Bld) [#/Vol] 3.22 10*6/uL 4.6-6.2 [facility] Serum or plasma calcium elmira urement (mass/volume)Ordered By: Talya Nichols on 05-04-2023 Calcium [Mass/Vol] 10.5 mg/dL 8.5-10.1 [facility] Serum or plasma creatinine m easurement (mass/volume)Ordered By: Talya Nichols on 05-04-2023 Creatinine [Mass/Vol] 2.10 mg/dL 0.70-1.30 [facility] Comment on above: The validity of the calculated GFR & GFRAA in patients over 70 years has not been determined. Clinical correlation is essential. Serum or plasma urea nitroge n measurement (mass/volume)Ordered By: Talya Nichols on 05-04-2023 Urea nitrogen [Mass/Vol] 48 mg/dL 7-18 [facility] Thin prep Papanicolaou smear with manual screeningOrdered By: Talya Nichols on 05-04-2023 Thin prep Papanicolaou smear with manual screening 3.2 g/dL 3.2-5.0 [facility] Thin prep Papanicolaou smear with manual screening 17 U/L 15-37 [facility] Thin prep Papanicolaou smear with manual screening 4 5-15 [facility] Absolute lymphocyte countOrd ered By: Frederick Logan on 04-30-2023 Lymphocytes Auto (Unsp spec) [#/Vol] 1.03 10*3/uL 0.83-4.51 [facility] Automated lymphocyte count a s percentage of total leukocytesOrdered By: Frederick Logan on 04-30-2023 Lymphocytes/100 WBC Auto (Unsp spec) 24.1 % 19-41 [facility] Basophil percentageOrdered B y: Frederick Logan on 04-30-2023 Basophils/100 WBC (Bld) 0.5 % 0-1 [facility] Chloride [Moles/Vol] 112 mmol/L 98-107 [facility] Eosinophils/100 WBC (Bld) 5.6 % 0-5 [facility] Glucose [Mass/Vol] 131 mg/dL 74-106 [facility] Comment on above: Fasting Glucose resu lt greater than or equal to 126 mg/dL suggests DIABETES MELLITUS per A.D.A. criteria. Hemoglobin (Bld) [Mass/Vol] 8.3 g/dL 13.0-16.5 [facility] Monocytes/100 WBC (Bld) 9.3 % 0-10 [facility] Neutrophils (Bld) [#/Vol] 2.6 10*3/uL 2.0-7.7 [facility] Neutrophils/100 WBC (Bld) 60.3 % 47-70 [facility] Potassium [Moles/Vol] 4.2 mmol/L 3.5-5.1 [facility] Sodium [Moles/Vol] 147 mmol/L 136-145 [facility] WBC (Bld) [#/Vol] 4.3 10*3/uL 4.4-11.0 [facility] Determination of erythrocyte mean corpuscular volume (MCV)Ordered By: Frederick Logan on 04-30-2023 MCV (RBC) [Entitic vol] 90.9 fL 80-94 [facility] Erythrocyte distribution wid th ratioOrdered By: Frederick Logan on 04-30-2023 Erythrocyte distribution width (RBC) [Ratio] 14.2 % 11.6-14.6 [facility] Erythrocyte distribution wid th standard deviationOrdered By: Frederick Logan on 04-30-2023 Erythrocyte distribution width (RBC) [Entitic vol] 46.7 fL 35.1-43.9 [facility] Hematocrit Auto (Bld) [Volum e fraction]Ordered By: Frederick Logan on 04-30-2023 Hematocrit (Bld) [Volume fraction] 28.0 % 40-54 [facility] Immature granulocytes/100 WB C Auto (Bld)Ordered By: Frederick Logan on 04-30-2023 Immature granulocytes/100 WBC (Bld) 0.200 % 0.0-0.9 [facility] Comment on above: IG% - Immature Granu locytes (promyelocytes, myelocytes and metamyelocytes) > 1% indicates that a LEFT SHIFT is Present. Laboratory - Chemistry and C hemistry - challengeOrdered By: Frederick Logan on 04-30-2023 CO2 [Moles/Vol] 34.0 mmol/L 21.0-32.0 [facility] Natriuretic peptide B (Bld) [Mass/Vol] 292.3 pg/mL 0-100 [facility] Urea nitrogen/Creatinine [Mass ratio] 36.8 mg/mg 10-20 [facility] Laboratory - Hematology and Cell countsOrdered By: Frederick Logan on 04-30-2023 MCH (RBC) [Entitic mass] 26.9 pg 27.0-32.0 [facility] MCHC (RBC) [Mass/Vol] 29.6 g/dL 32-36 [facility] Nucleated RBC/100 WBC (Bld) [Ratio] 0 % 0-5 [facility] Platelet mean volume (Bld) [Entitic vol] 11.9 fL 6.2-12.0 [facility] Platelets (Bld) [#/Vol] 109 10*3/uL 150-450 [facility] No Panel InformationOrdered By: Frederick Logan on 04-30-2023 Estimated Creatinine Clearance Calc 28.55 ml/min [facility] Estimated GFR (MDRD) Amer 40 mL/min >60 [facility] Comment on above: GFR Calc Estimated GFR (MDRD) Non-Af Amer 33 mL/min >60 [facility] Comment on above: Non- GFR Calc RBC Auto (Bld) [#/Vol]Ordere d By: Frederick Logan on 04-30-2023 RBC (Bld) [#/Vol] 3.08 10*6/uL 4.6-6.2 [facility] Serum or plasma calcium elmira urement (mass/volume)Ordered By: Frederick Logan on 04-30-2023 Calcium [Mass/Vol] 9.0 mg/dL 8.5-10.1 [facility] Serum or plasma creatinine m easurement (mass/volume)Ordered By: Frederick Logan on 04-30-2023 Creatinine [Mass/Vol] 2.04 mg/dL 0.70-1.30 [facility] Comment on above: The validity of the calculated GFR & GFRAA in patients over 70 years has not been determined. Clinical correlation is essential. Serum or plasma urea nitroge n measurement (mass/volume)Ordered By: Frederick Logan on 04-30-2023 Urea nitrogen [Mass/Vol] 75 mg/dL 7-18 [facility] Thin prep Papanicolaou smear with manual screeningOrdered By: Frederick Logan on 04-30-2023 Thin prep Papanicolaou smear with manual screening 1 5-15 [facility] Absolute lymphocyte countOrd ered By: John Anders on 04-26-2023 Lymphocytes Auto (Unsp spec) [#/Vol] 1.40 10*3/uL 0.83-4.51 [facility] Automated lymphocyte count a s percentage of total leukocytesOrdered By: John Anders on 04-26-2023 Lymphocytes/100 WBC Auto (Unsp spec) 24.7 % 19-41 [facility] Basophil percentageOrdered B y: John Anders on 04-26-2023 Basophils/100 WBC (Bld) 0.7 % 0-1 [facility] Chloride [Moles/Vol] 101 mmol/L 98-107 [facility] Eosinophils/100 WBC (Bld) 6.0 % 0-5 [facility] Glucose [Mass/Vol] 129 mg/dL 74-106 [facility] Comment on above: Fasting Glucose resu lt greater than or equal to 126 mg/dL suggests DIABETES MELLITUS per A.D.A. criteria. Hemoglobin (Bld) [Mass/Vol] 9.4 g/dL 13.0-16.5 [facility] Monocytes/100 WBC (Bld) 8.8 % 0-10 [facility] Neutrophils (Bld) [#/Vol] 3.4 10*3/uL 2.0-7.7 [facility] Neutrophils/100 WBC (Bld) 59.6 % 47-70 [facility] Potassium [Moles/Vol] 3.8 mmol/L 3.5-5.1 [facility] Sodium [Moles/Vol] 142 mmol/L 136-145 [facility] WBC (Bld) [#/Vol] 5.7 10*3/uL 4.4-11.0 [facility] Determination of erythrocyte mean corpuscular volume (MCV)Ordered By: John Anders on 04-26-2023 MCV (RBC) [Entitic vol] 88.3 fL 80-94 [facility] Erythrocyte distribution wid th ratioOrdered By: John Anders on 04-26-2023 Erythrocyte distribution width (RBC) [Ratio] 14.6 % 11.6-14.6 [facility] Erythrocyte distribution wid th standard deviationOrdered By: John Anders on 04-26-2023 Erythrocyte distribution width (RBC) [Entitic vol] 46.8 fL 35.1-43.9 [facility] Hematocrit Auto (Bld) [Volum e fraction]Ordered By: John Anders on 04-26-2023 Hematocrit (Bld) [Volume fraction] 30.2 % 40-54 [facility] Immature granulocytes/100 WB C Auto (Bld)Ordered By: John Anders on 04-26-2023 Immature granulocytes/100 WBC (Bld) 0.200 % 0.0-0.9 [facility] Comment on above: IG% - Immature Granu locytes (promyelocytes, myelocytes and metamyelocytes) > 1% indicates that a LEFT SHIFT is Present. Laboratory - Chemistry and C hemistry - challengeOrdered By: John Anders on 04-26-2023 CO2 [Moles/Vol] 31.0 mmol/L 21.0-32.0 [facility] Urea nitrogen/Creatinine [Mass ratio] 23.9 mg/mg 10-20 [facility] Laboratory - Hematology and Cell countsOrdered By: John Anders on 04-26-2023 MCH (RBC) [Entitic mass] 27.5 pg 27.0-32.0 [facility] MCHC (RBC) [Mass/Vol] 31.1 g/dL 32-36 [facility] Nucleated RBC/100 WBC (Bld) [Ratio] 0 % 0-5 [facility] Platelet mean volume (Bld) [Entitic vol] 11.7 fL 6.2-12.0 [facility] Platelets (Bld) [#/Vol] 123 10*3/uL 150-450 [facility] No Panel InformationOrdered By: John Anders on 04-26-2023 Estimated Creatinine Clearance Calc 23.25 ml/min [facility] Estimated GFR (MDRD) Amer 33 mL/min >60 [facility] Comment on above: GFR Calc Estimated GFR (MDRD) Non-Af Amer 27 mL/min >60 [facility] Comment on above: Non- GFR Calc RBC Auto (Bld) [#/Vol]Ordere d By: John Anders on 04-26-2023 RBC (Bld) [#/Vol] 3.42 10*6/uL 4.6-6.2 [facility] Serum or plasma calcium elmira urement (mass/volume)Ordered By: John Anders on 04-26-2023 Calcium [Mass/Vol] 9.9 mg/dL 8.5-10.1 [facility] Serum or plasma creatinine m easurement (mass/volume)Ordered By: John Anders on 04-26-2023 Creatinine [Mass/Vol] 2.43 mg/dL 0.70-1.30 [facility] Comment on above: The validity of the calculated GFR & GFRAA in patients over 70 years has not been determined. Clinical correlation is essential. Serum or plasma urea nitroge n measurement (mass/volume)Ordered By: John Anders on 04-26-2023 Urea nitrogen [Mass/Vol] 58 mg/dL 7-18 [facility] Thin prep Papanicolaou smear with manual screeningOrdered By: John Anders on 04-26-2023 Thin prep Papanicolaou smear with manual screening 209 mg/dL 74-106 [facility] Comment on above: MANAGEMENT OF PATIEN T CARE PER NURSING PROTOCOL Thin prep Papanicolaou smear with manual screening 10 -15 [facility] Basophil percentageOrdered B y: Michelle Washburn on 04-25-2023 Basophil percentage 2.4 mg/dL 2.5-4.9 [facility] Bilirubin [Mass/Vol] 0.90 mg/dL 0.20-1.00 [facility] Comment on above: For patients on eltr ombopag therapy, use of Dimension [place] TBIL is not recommended. Cholesterol [Mass/Vol] 170 mg/dL <200 [facility] Comment on above: <200 mg/dL Desirable 200-240 mg/dL Borderline >240 mg/dL High Risk Protein [Mass/Vol] 7.0 g/dL 6.4-8.2 [facility] Triglyceride [Mass/Vol] 216 mg/dL <199 [facility] Comment on above: The drugs N-Acetylcy steine and Metamizole may falsely depress this assay.Serum Triglycerides Reference Interval Normal <150 mg/dL Borderline high 150 - 199 mg/dL High 200 - 499 mg/dL Very High > or = 500 mg/dL Laboratory - Chemistry and C hemistry - challengeOrdered By: Michelle Washburn on 04-25-2023 Albumin/Globulin [Mass ratio] 0.9 {ratio} 0.9-2.4 [facility] ALP [Catalytic activity/Vol] 80 U/L 45-117 [facility] ALT [Catalytic activity/Vol] 13 U/L 16-61 [facility] Cholesterol in HDL [Mass/Vol] 33 mg/dL >40 [facility] Comment on above: The drugs N-Acetylcy steine and Metamizole may falsely depress this assay. Reference Range HDL <40 mg/dL Low HDL Cholesterol HDL >or= 60 mg/dL High HDL Cholesterol Cholesterol in LDL [Mass/Vol] 94 mg/dL 0-130 [facility] Globulin (S) [Mass/Vol] 3.7 g/dL 2.2-4.2 [facility] Magnesium [Mass/Vol] 1.6 mg/dL 1.6-2.6 [facility] No Panel InformationOrdered By: Michelle Washburn on 04-25-2023 VLDL Cholesterol 43 mg/dL 5-40 [facility] Troponin I High Sensitivity 334 pg/mL 3.0-78.0 [facility] Comment on above: CRITICAL VALUE BAILEY Cole LOPEZ RN ([facility])04/25/23 0320 [address] JEAN-BAPTISTE.RESULTS READ BACK BY SAME . Please Note: New Test Units and Gender Specific Reference Ranges. For more information see Policy Stat Procedure [place] High Sensitivity Troponin (TNIH) and attachments. Serum or plasma thyroid stim ulating hormone (TSH) measurement (units/volume)Ordered By: Michelle Washburn on 04-25-2023 TSH Qn 3.43 uIU/mL 0.358-3.74 [facility] Thin prep Papanicolaou smear with manual screeningOrdered By: Michelle Washburn on 04-25-2023 Thin prep Papanicolaou smear with manual screening 3.3 g/dL 3.2-5.0 [facility] Thin prep Papanicolaou smear with manual screening 17 U/L 15-37 [facility] Absolute lymphocyte countOrd ered By: Jr Thomas on 04-24-2023 Lymphocytes Auto (Unsp spec) [#/Vol] 0.67 10*3/uL 0.83-4.51 [facility] Automated lymphocyte count a s percentage of total leukocytesOrdered By: Jr Thomas on 04-24-2023 Lymphocytes/100 WBC Auto (Unsp spec) 12.0 % 19-41 [facility] Basophil percentageOrdered B y: Jr Thomas on 04-24-2023 Basophils/100 WBC (Bld) 0.5 % 0-1 [facility] Chloride [Moles/Vol] 108 mmol/L 98-107 [facility] Eosinophils/100 WBC (Bld) 4.5 % 0-5 [facility] Glucose [Mass/Vol] 200 mg/dL 74-106 [facility] Comment on above: Glucose result great er than or equal to 200 mg/dLsuggests DIABETES MELLITUS per A.D.A. criteria. Hemoglobin (Bld) [Mass/Vol] 9.3 g/dL 13.0-16.5 [facility] Monocytes/100 WBC (Bld) 6.1 % 0-10 [facility] Neutrophils (Bld) [#/Vol] 4.3 10*3/uL 2.0-7.7 [facility] Neutrophils/100 WBC (Bld) 76.7 % 47-70 [facility] Potassium [Moles/Vol] 4.1 mmol/L 3.5-5.1 [facility] Sodium [Moles/Vol] 145 mmol/L 136-145 [facility] WBC (Bld) [#/Vol] 5.6 10*3/uL 4.4-11.0 [facility] Determination of erythrocyte mean corpuscular volume (MCV)Ordered By: Jr Thomas on 04-24-2023 MCV (RBC) [Entitic vol] 89.6 fL 80-94 [facility] Erythrocyte distribution wid th ratioOrdered By: Jr Thomas on 04-24-2023 Erythrocyte distribution width (RBC) [Ratio] 14.7 % 11.6-14.6 [facility] Erythrocyte distribution wid th standard deviationOrdered By: Jr Thomas on 04-24-2023 Erythrocyte distribution width (RBC) [Entitic vol] 48.0 fL 35.1-43.9 [facility] Hematocrit Auto (Bld) [Volum e fraction]Ordered By: Jr Thomas on 04-24-2023 Hematocrit (Bld) [Volume fraction] 30.1 % 40-54 [facility] Immature granulocytes/100 WB C Auto (Bld)Ordered By: Jr Thomas on 04-24-2023 Immature granulocytes/100 WBC (Bld) 0.200 % 0.0-0.9 [facility] Comment on above: IG% - Immature Granu locytes (promyelocytes, myelocytes and metamyelocytes) > 1% indicates that a LEFT SHIFT is Present. Laboratory - Chemistry and C hemistry - challengeOrdered By: Jr Thomas on 04-24-2023 CO2 [Moles/Vol] 33.0 mmol/L 21.0-32.0 [facility] Natriuretic peptide B (Bld) [Mass/Vol] 143.1 pg/mL 0-100 [facility] Urea nitrogen/Creatinine [Mass ratio] 21.5 mg/mg 10-20 [facility] Laboratory - Hematology and Cell countsOrdered By: Jr Thomas on 04-24-2023 MCH (RBC) [Entitic mass] 27.7 pg 27.0-32.0 [facility] MCHC (RBC) [Mass/Vol] 30.9 g/dL 32-36 [facility] Nucleated RBC/100 WBC (Bld) [Ratio] 0 % 0-5 [facility] Platelet mean volume (Bld) [Entitic vol] 11.9 fL 6.2-12.0 [facility] Platelets (Bld) [#/Vol] 103 10*3/uL 150-450 [facility] Laboratory - Microbiology an d Antimicrobial susceptibilityOrdered By: Jr Thomas on 04-24-2023 SARS-CoV-2 (COVID-19) RNA JOSH+probe Ql (Unsp spec) [facility] SARS-CoV-2 (COVID-19) RNA JOSH+probe Ql (Unsp spec) [facility] No Panel InformationOrdered By: Jr Thomas on 04-24-2023 Estimated Creatinine Clearance Calc 29.00 ml/min [facility] Estimated GFR (MDRD) Amer 41 mL/min >60 [facility] Comment on above: GFR Calc Estimated GFR (MDRD) Non-Af Amer 34 mL/min >60 [facility] Comment on above: Non- GFR Calc Troponin I High Sensitivity 47 pg/mL 3.0-78.0 [facility] Comment on above: Please Note: New Arti t Units and Gender Specific Reference Ranges. For more information see Policy Stat Procedure [place] High Sensitivity Troponin (TNIH) and attachments. RBC Auto (Bld) [#/Vol]Ordere d By: Jr Thomas on 04-24-2023 RBC (Bld) [#/Vol] 3.36 10*6/uL 4.6-6.2 [facility] Serum or plasma calcium elmira urement (mass/volume)Ordered By: Jr Thomas on 04-24-2023 Calcium [Mass/Vol] 9.3 mg/dL 8.5-10.1 [facility] Serum or plasma creatinine m easurement (mass/volume)Ordered By: Jr Thomas on 04-24-2023 Creatinine [Mass/Vol] 2.00 mg/dL 0.70-1.30 [facility] Comment on above: The validity of the calculated GFR & GFRAA in patients over 70 years has not been determined. Clinical correlation is essential. Serum or plasma urea nitroge n measurement (mass/volume)Ordered By: Jr Thomas on 04-24-2023 Urea nitrogen [Mass/Vol] 43 mg/dL 7-18 [facility] Thin prep Papanicolaou smear with manual screeningOrdered By: Jr Thomas on 04-24-2023 Thin prep Papanicolaou smear with manual screening 4 5-15 [facility] .Auto Diffon 04-13-2023 Basophil, Absolute 0.1 10 3/mcL Normal 0.0-0.2 [facility] ([place]) Comment on above: Performed By: #### D SUMAN, PBNP, CBC, ADIFF, ANEU, TSH, CMP, GFR ####[address] [place], [place] [address] Basophils/100 WBC (Bld) 1.0 % Normal 0.0-2.5 [facility] ([place]) Comment on above: Performed By: #### D SUMAN, PBNP, CBC, ADIFF, ANEU, TSH, CMP, GFR ####[address] [place], [place] [address] Eosinophil, Absolute 0.4 10 3/mcL Normal 0.0-0.4 [facility] ([place]) Comment on above: Performed By: #### D SUMAN, PBNP, CBC, ADIFF, ANEU, TSH, CMP, GFR ####[address] [place], [place] [address] Eosinophils/100 WBC (Bld) 5.5 % Normal 0.0-7.0 [facility] ([place]) Comment on above: Performed By: #### D SUMAN, PBNP, CBC, ADIFF, ANEU, TSH, CMP, GFR ####[address] [place], [place] [address] Lymphocyte, Absolute 1.2 10 3/mcL Normal 0.8-3.9 [facility] ([place]) Comment on above: Performed By: #### D SUMAN, PBNP, CBC, ADIFF, ANEU, TSH, CMP, GFR ####[address] [place], [place] [address] Lymphocytes/100 WBC (Bld) 19.1 % Normal 10.0-50.0 [facility] ([place]) Comment on above: Performed By: #### D SUMAN, PBNP, CBC, ADIFF, ANEU, TSH, CMP, GFR ####[address] [place], [place] [address] Monocyte, Absolute 0.5 10 3/mcL Normal 0.2-1.0 [facility] ([place]) Comment on above: Performed By: #### D SUMAN, PBNP, CBC, ADIFF, ANEU, TSH, CMP, GFR ####[address] [place], [place] [address] Monocytes/100 WBC (Bld) 7.4 % Normal 1.7-13.0 [facility] ([place]) Comment on above: Performed By: #### D SUMAN, PBNP, CBC, ADIFF, ANEU, TSH, CMP, GFR ####[address] [place], [place] [address] Neutrophils/100 WBC (Bld) 67.0 % Normal 37.0-80.0 [facility] ([place]) Comment on above: Performed By: #### D SUMAN, PBNP, CBC, ADIFF, ANEU, TSH, CMP, GFR ####[address] [place], [place] [address] .GFRon 04-13-2023 GFR 38 ml/min/1.73sqm Normal [facility] ([place]) Comment on above: Result Comment: GFR Population mean for , Non- Americans Ages 20-29 = 116 mL/min/1.73 sq.m. Ages 30-39 = 107 mL/min/1.73 sq.m. Ages 40-49 = 99 mL/min/1.73 sq.m. Ages 50-59 = 93 mL/min/1.73 sq.m. Ages 60-69 = 85 mL/min/1.73 sq.m. Ages 70+ = 75 mL/min/1.73 sq.m.Chronic Kidney Disease: Less than 60 mL/min/1.73 square metersEnd Stage Renal Disease: Less than 15 mL/min/1.73 square meters Performed By: #### D SUMAN, PBNP, CBC, ADIFF, ANEU, TSH, CMP, GFR ####[address] [place], [place] [address] GFR Non- 32 ml/min/1.73sqm Normal [facility] ([place]) Comment on above: Result Comment: GFR Population mean for , Non- Americans Ages 20-29 = 116 mL/min/1.73 sq.m. Ages 30-39 = 107 mL/min/1.73 sq.m. Ages 40-49 = 99 mL/min/1.73 sq.m. Ages 50-59 = 93 mL/min/1.73 sq.m. Ages 60-69 = 85 mL/min/1.73 sq.m. Ages 70+ = 75 mL/min/1.73 sq.m.Chronic Kidney Disease: Less than 60 mL/min/1.73 square metersEnd Stage Renal Disease: Less than 15 mL/min/1.73 square meters Performed By: #### Cole SUMAN, PBNP, CBC, ADIFF, ANEU, TSH, CMP, GFR ####[address] [place], [place] [address] .NEUABSon 04-13-2023 Neutrophil, Absolute 4.3 10 3/mcL Normal 2.9-6.2 [facility] ([place]) Comment on above: Performed By: #### Cole SUMAN, PBNP, CBC, ADIFF, ANEU, TSH, CMP, GFR ####[address] [place], [place] [address] CBCon 04-13-2023 Erythrocyte distribution width (RBC) [Ratio] 16.3 % High 11.5-14.5 [facility] ([place]) Comment on above: Order Comment: STAT Performed By: #### Cole SUMAN, PBNP, CBC, ADIFF, ANEU, TSH, CMP, GFR ####[address] [place], [place] [address] Hematocrit (Bld) [Volume fraction] 28.8 % Low 42.0-52.0 [facility] ([place]) Comment on above: Order Comment: STAT Performed By: #### Cole SUMAN, PBNP, CBC, ADIFF, ANEU, TSH, CMP, GFR ####[address] [place], [place] [address] Hgb 9.6 G/dL Low 14.0-18.0 [facility] ([place]) Comment on above: Order Comment: STAT Performed By: ###Ramesh Galvan SUMAN, PBNP, CBC, ADIFF, ANEU, TSH, CMP, GFR ####[address] [place], [place] [address] MCH (RBC) [Entitic mass] 28.1 pg Normal 27.0-31.2 [facility] ([place]) Comment on above: Order Comment: STAT Performed By: #### D SUMAN, PBNP, CBC, ADIFF, ANEU, TSH, CMP, GFR ####[address] [place], [place] [address] MCHC 33.4 G/dL Normal 31.8-35.4 [facility] ([place]) Comment on above: Order Comment: STAT Performed By: #### D SUMAN, PBNP, CBC, ADIFF, ANEU, TSH, CMP, GFR ####[address] [place], [place] [address] MCV (RBC) [Entitic vol] 84.1 fL Normal 80.0-94.0 [facility] ([place]) Comment on above: Order Comment: STAT Performed By: #### Cole SUMAN, PBNP, CBC, ADIFF, ANEU, TSH, CMP, GFR ####[address] [place], [place] [address] Platelet 119 10 3/mcL Low 130-400 [facility] ([place]) Comment on above: Order Comment: STAT Performed By: #### Cole SUMAN, PBNP, CBC, ADIFF, ANEU, TSH, CMP, GFR ####[address] [place], [place] [address] Platelet mean volume (Bld) [Entitic vol] 8.3 fL Normal 7.4-10.4 [facility] ([place]) Comment on above: Order Comment: STAT Performed By: #### Cole SUMAN, PBNP, CBC, ADIFF, ANEU, TSH, CMP, GFR ####[address] [place], [place] [address] RBC 3.42 10 6/mcL Low 4.04-6.13 [facility] ([place]) Comment on above: Order Comment: STAT Performed By: #### Cole SUMAN, PBNP, CBC, ADIFF, ANEU, TSH, CMP, GFR ####[address] [place], [place] [address] WBC 6.4 10 3/mcL Normal 4.6-10.8 [facility] ([place]) Comment on above: Order Comment: STAT Performed By: #### D SUMAN, PBNP, CBC, ADIFF, ANEU, TSH, CMP, GFR ####[address] [place], [place] [address] CMPon 04-13-2023 Albumin Level 3.5 G/dL Normal 3.4-4.8 [facility] ([place]) Comment on above: Order Comment: STAT Performed By: #### D SUMAN, PBNP, CBC, ADIFF, ANEU, TSH, CMP, GFR ####[address] [place], [place] [address] Albumin/Globulin [Mass ratio] 1.0 {ratio} Low 1.1-2.5 [facility] ([place]) Comment on above: Order Comment: STAT Performed By: #### D SUMAN, PBNP, CBC, ADIFF, ANEU, TSH, CMP, GFR ####[address] [place], [place] [address] ALP [Catalytic activity/Vol] 93 U/L Normal 40-135 [facility] ([place]) Comment on above: Order Comment: STAT Performed By: #### D SUMAN, PBNP, CBC, ADIFF, ANEU, TSH, CMP, GFR ####[address] [place], [place] [address] ALT [Catalytic activity/Vol] 20 U/L Normal 16-63 [facility] ([place]) Comment on above: Order Comment: STAT Performed By: #### D SUMAN, PBNP, CBC, ADIFF, ANEU, TSH, CMP, GFR ####[address] [place], [place] [address] AST [Catalytic activity/Vol] 20 U/L Normal 10-40 [facility] ([place]) Comment on above: Order Comment: STAT Performed By: #### D SUMAN, PBNP, CBC, ADIFF, ANEU, TSH, CMP, GFR ####[address] [place], [place] [address] Bili Total 0.7 mg/dL Normal 0.2-1.0 [facility] ([place]) Comment on above: Order Comment: STAT Result Comment: Use of this assay is not recommended for patients undergoing treatment with eltrombopag due to the potential for falsely elevated results. Performed By: #### D SUMAN, PBNP, CBC, ADIFF, ANEU, TSH, CMP, GFR ####[address] [place], [place] [address] BUN/Creatinine Ratio 30 ratio High 7-27 [facility] ([place]) Comment on above: Order Comment: STAT Performed By: #### D SUMAN, PBNP, CBC, ADIFF, ANEU, TSH, CMP, GFR ####[address] [place], [place] [address] Calcium [Mass/Vol] 9.5 mg/dL Normal 8.4-10.2 [facility] [place] Comment on above: Order Comment: STAT Performed By: #### D SUMAN, PBNP, CBC, ADIFF, ANEU, TSH, CMP, GFR ####[address] [place], [place] [address] Chloride [Moles/Vol] 100 mmol/L Normal 98-107 [facility] ([place]) Comment on above: Order Comment: STAT Performed By: #### D SUMAN, PBNP, CBC, ADIFF, ANEU, TSH, CMP, GFR ####[address] [place], [place] [address] CO2 [Moles/Vol] 36 mmol/L High 23-31 [facility] ([place]) Comment on above: Order Comment: STAT Performed By: #### D SUMAN, PBNP, CBC, ADIFF, ANEU, TSH, CMP, GFR ####[address] [place], [place] [address] Creatinine [Mass/Vol] 2.03 mg/dL High 0.70-1.30 [facility] ([place]) Comment on above: Order Comment: STAT Performed By: #### D SUMAN, PBNP, CBC, ADIFF, ANEU, TSH, CMP, GFR ####[address] [place], [place] [address] Electrolyte Balance 7.0 mEq/L Normal 4.0-15.0 [facility] ([place]) Comment on above: Order Comment: STAT Performed By: #### D SUMAN, PBNP, CBC, ADIFF, ANEU, TSH, CMP, GFR ####[address] [place], [place] [address] Globulin 3.6 G/dL Normal [facility] ([place]) Comment on above: Order Comment: STAT Performed By: #### D SUMAN, PBNP, CBC, ADIFF, ANEU, TSH, CMP, GFR ####[address] [place], [place] [address] Glucose [Mass/Vol] 151 mg/dL High 83-110 [facility] [place]) Comment on above: Order Comment: STAT Performed By: #### D SUMAN, PBNP, CBC, ADIFF, ANEU, TSH, CMP, GFR ####[address] [place], [place] [address] Potassium [Moles/Vol] 3.9 mmol/L Normal 3.5-5.1 [facility] ([place]) Comment on above: Order Comment: STAT Performed By: #### Cole SUMAN, PBNP, CBC, ADIFF, ANEU, TSH, CMP, GFR ####[address] [place], [place] [address] Sodium [Moles/Vol] 143 mmol/L Normal 136-145 [facility] [place]) Comment on above: Order Comment: STAT Performed By: #### Cole SUMAN, PBNP, CBC, ADIFF, ANEU, TSH, CMP, GFR ####[address] [place], [place] [address] Total Protein 7.1 G/dL Normal 6.4-8.2 [facility] ([place]) Comment on above: Order Comment: STAT Performed By: #### D SUMAN, PBNP, CBC, ADIFF, ANEU, TSH, CMP, GFR ####[address] [place], [place] [address] Urea nitrogen [Mass/Vol] 60 mg/dL High 7-18 [facility] ([place]) Comment on above: Order Comment: STAT Performed By: #### D SUMAN, PBNP, CBC, ADIFF, ANEU, TSH, CMP, GFR ####[address] [place], [place] [address] DIMERon 04-13-2023 D-Dimer 290 ng/mL D-DU High 0-230 [facility] ([place]) Comment on above: Order Comment: STAT Result Comment: Resu lts reported in D-DU ng/mL.Positive for D-dimer. A positive D-Dimer may occur in the following:DVT, PE, DIC, Trauma, Cancer, Sepsis, , Rheumatoid arthritis, Myocardial infarction and Cirrhosis. The presence of Rheumatoid Factor and HAMA (human mouse antibody) produces an overestimation of test results.The result of the D-Dimer test should be evaluated in the context of all the clinical and laboratory data available.In those instances where the laboratory result does not agree with the clinical evaluation, additional tests shouldbe performed accordingly.If the D-Dimer result is used to exclude DVT or PE, the recommended cutoff value is less than 230 ng/mL. The D-Dimerresult should not be used alone to rule in DVT/PE, but should be used in conjunction with a clinical pretest probability (PTP)assessment model to exclude venous thromboembolism (VTE) in outpatients suspected of deep venous thrombosis (DVT) and pulmonary embolism (PE). Performed By: #### D SUMAN, PBNP, CBC, ADIFF, ANEU, TSH, CMP, GFR ####[address] [place], [place] [address] LABORATORYOrdered By: SYSTEM SYSTEM on 04-13-2023 Albumin BCP dye [Mass/Vol] 3.5 G/dL Normal 3.4 - 4.8 G/dL AO ADM SS Albumin/Globulin [Mass ratio] 1.0 {ratio} Low 1.1 - 2.5 ratio AO ADM SS ALP [Catalytic activity/Vol] 93 U/L Normal 40 - 135 U/L AO ADM SS ALT With P-5'-P [Catalytic activity/Vol] 20 U/L Normal 16 - 63 U/L AO ADM SS AST With P-5'-P [Catalytic activity/Vol] 20 U/L Normal 10 - 40 U/L AO ADM SS Basophil, Absolute 0.1 103/mcL Normal 0.0 - 0.2 10^3/mcL AO Workflow SS Basophils/100 WBC (Bld) 1.0 % Normal 0.0 - 2.5 % AO Workflow SS Bilirubin [Mass/Vol] 0.7 mg/dL Normal 0.2 - 1 .0 mg/dL AO ADM SS Comment on above: Interpretive Data: U se of this assay is not recommended for patients undergoing treatment with eltrombopag due to the potential for falsely elevated results. Calcium [Mass/Vol] 9.5 mg/dL Normal 8.4 - 10. 2 mg/dL AO ADM SS Chloride [Moles/Vol] 100 mmol/L Normal 98 - 10 7 mmol/L AO ADM SS CO2 [Moles/Vol] 36 mmol/L High 23 - 31 mmol/L AO ADM SS Creatinine [Mass/Vol] 2.03 mg/dL High 0.70 - 1.30 mg/dL AO ADM SS Electrolyte Balance 7.0 mEq/L Normal 4.0 - 15 .0 mEq/L AO ADM SS Eosinophil, Absolute 0.4 103/mcL Normal 0.0 - 0 .4 10^3/mcL AO Workflow SS Eosinophils/100 WBC (Bld) 5.5 % Normal 0.0 - 7.0 % AO Workflow SS Erythrocyte distribution width (RBC) [Ratio] 16.3 % High 11.5 - 14.5 % AO Workflow SS GFR/1.73 sq M.predicted among blacks MDRD (S/P/Bld) [Vol rate/Area] 38 ml/min/1.73sqm Invalid Interpretation Code AO Chemistry S Comment on above: Interpretive Data: GFR Population mean for , Non- Americans Ages 20-29 = 116 mL/min/1.73 sq.m. Ages 30-39 = 107 mL/min/1.73 sq.m. Ages 40-49 = 99 mL/min/1.73 sq.m. Ages 50-59 = 93 mL/min/1.73 sq.m. Ages 60-69 = 85 mL/min/1.73 sq.m. Ages 70+ = 75 mL/min/1.73 sq.m. Chronic Kidney Disease: Less than 60 mL/min/1.73 square meters End Stage Renal Disease: Less than 15 mL/min/1.73 square meters GFR/1.73 sq M.predicted among non-blacks MDRD (S/P/Bld) [Vol rate/Area] 32 ml/min/1.73sqm Invalid Interpretation Code AO Chemistry S Comment on above: Interpretive Data: GFR Population mean for , Non- Americans Ages 20-29 = 116 mL/min/1.73 sq.m. Ages 30-39 = 107 mL/min/1.73 sq.m. Ages 40-49 = 99 mL/min/1.73 sq.m. Ages 50-59 = 93 mL/min/1.73 sq.m. Ages 60-69 = 85 mL/min/1.73 sq.m. Ages 70+ = 75 mL/min/1.73 sq.m. Chronic Kidney Disease: Less than 60 mL/min/1.73 square meters End Stage Renal Disease: Less than 15 mL/min/1.73 square meters Globulin 3.6 G/dL Invalid Interpretation Code AO ADM SS Glucose [Mass/Vol] 151 mg/dL High 83 - 110 mg/dL AO ADM SS Hematocrit (Bld) [Volume fraction] 28.8 % Low 42.0 - 52.0 % AO Workflow SS Hemoglobin (Bld) [Mass/Vol] 9.6 G/dL Low 14.0 - 18.0 G/dL AO Workflow SS Lymphocyte, Absolute 1.2 103/mcL Normal 0.8 - 3 .9 10^3/mcL AO Workflow SS Lymphocytes/100 WBC (Bld) 19.1 % Normal 10.0 - 50.0 % AO Workflow SS MCH (RBC) [Entitic mass] 28.1 pg Normal 27. 0 - 31.2 pg AO Workflow SS MCHC 33.4 G/dL Normal 31.8 - 35.4 G/dL AO Workflow SS MCV (RBC) [Entitic vol] 84.1 fL Normal 80.0 - 94.0 fL AO Workflow SS Monocyte, Absolute 0.5 103/mcL Normal 0.2 - 1.0 10^3/mcL AO Workflow SS Monocytes/100 WBC (Bld) 7.4 % Normal 1.7 - 13.0 % AO Workflow SS Natriuretic peptide.B prohormone N-Terminal [Mass/Vol] 1696 pg/mL High 0 - 450 pg/mL AO ADM SS Comment on above: Interpretive Data: N T-proBNP results of less than 300 pg/mL effectively rules out acute congestive heart failure with 99% negative predictive value. Neutrophil, Absolute 4.3 103/mcL Normal 2.9 - 6 .2 10^3/mcL AO Workflow SS Neutrophils/100 WBC (Bld) 67.0 % Normal 37.0 - 80.0 % AO Workflow SS Platelet mean volume (Bld) [Entitic vol] 8.3 fL Normal 7.4 - 10.4 fL AO Workflow SS Platelets (Bld) [#/Vol] 119 103/mcL Low 130 - 400 10^3/mcL AO Workflow SS Potassium [Moles/Vol] 3.9 mmol/L Normal 3.5 - 5.1 mmol/L AO ADM SS Protein [Mass/Vol] 7.1 G/dL Normal 6.4 - 8.2 G/dL AO ADM SS RBC (Bld) [#/Vol] 3.42 106/mcL Low 4.04 - 6.1 3 10^6/mcL AO Workflow SS Sodium [Moles/Vol] 143 mmol/L Normal 136 - 145 mmol/L AO ADM SS TSH Qn 2.44 m[IU]/L Normal 0.36 - 3.74 mcIU/mL AO ADM SS Urea nitrogen [Mass/Vol] 60 mg/dL High 7 - 18 mg/dL AO ADM SS Urea nitrogen/Creatinine [Mass ratio] 30 ratio High 7 - 27 ratio AO ADM SS WBC (Bld) [#/Vol] 6.4 103/mcL Normal 4.6 - 10.8 10^3/mcL AO Workflow SS LABORATORYOrdered By: Lauren Ag on 04-13-2023 Fibrin D-dimer DDU (PPP) [Mass/Vol] 290 ng/mL D-DU High 0 - 230 ng/mL D-DU AO [facility] SS Comment on above: Result Comment: Resu lts reported in D-DU ng/mL. Positive for D-dimer. A positive D-Dimer may occur in the following: DVT, PE, DIC, Trauma, Cancer, Sepsis, , Rheumatoid arthritis, Myocardial infarction and Cirrhosis. The presence of Rheumatoid Factor and HAMA (human mouse antibody) produces an overestimation of test results. Interpretive Data: T he result of the D-Dimer test should be evaluated in the context of all the clinical and laboratory data available. In those instances where the laboratory result does not agree with the clinical evaluation, additional tests should be performed accordingly. If the D-Dimer result is used to exclude DVT or PE, the recommended cutoff value is less than 230 ng/mL. The D-Dimer result should not be used alone to rule in DVT/PE, but should be used in conjunction with a clinical pretest probability (PTP)assessment model to exclude venous thromboembolism (VTE) in outpatients suspected of deep venous thrombosis (DVT) and pulmonary embolism (PE). PBNPon 04-13-2023 Natriuretic peptide B (Bld) [Mass/Vol] 1696 pg/mL High 0-450 [facility] ([place]) Comment on above: Order Comment: STAT Result Comment: NT-p roBNP results of less than 300 pg/mL effectivelyrules out acute congestive heart failure with 99% negative predictive value. Performed By: #### D SUMAN, PBNP, CBC, ADIFF, ANEU, TSH, CMP, GFR ####[address] [place], [place] [address] TSHon 04-13-2023 TSH Qn 2.44 m[IU]/L Normal 0.36-3.74 [facility] ([place]) Comment on above: Order Comment: STAT Performed By: #### D SUMAN, PBNP, CBC, ADIFF, ANEU, TSH, CMP, GFR ####[address] [place], [place] [address] Absolute lymphocyte countOrd ered By: Dimitry Lott on 04-07-2023 Lymphocytes Auto (Unsp spec) [#/Vol] 1.29 10*3/uL 0.83-4.51 [facility] Automated lymphocyte count a s percentage of total leukocytesOrdered By: Dimitry Lott on 04-07-2023 Lymphocytes/100 WBC Auto (Unsp spec) 22.1 % 19-41 [facility] Basophil percentageOrdered B y: Dimitry Lott on 04-07-2023 Basophils/100 WBC (Bld) 0.5 % 0-1 [facility] Chloride [Moles/Vol] 103 mmol/L 98-107 [facility] Eosinophils/100 WBC (Bld) 5.8 % 0-5 [facility] Glucose [Mass/Vol] 195 mg/dL 74-106 [facility] Comment on above: Fasting Glucose resu lt greater than or equal to 126 mg/dL suggests DIABETES MELLITUS per A.D.A. criteria. Hemoglobin (Bld) [Mass/Vol] 10.0 g/dL 13.0-16.5 [facility] Monocytes/100 WBC (Bld) 7.4 % 0-10 [facility] Neutrophils (Bld) [#/Vol] 3.7 10*3/uL 2.0-7.7 [facility] Neutrophils/100 WBC (Bld) 63.9 % 47-70 [facility] Potassium [Moles/Vol] 4.3 mmol/L 3.5-5.1 [facility] Sodium [Moles/Vol] 140 mmol/L 136-145 [facility] WBC (Bld) [#/Vol] 5.8 10*3/uL 4.4-11.0 [facility] Determination of erythrocyte mean corpuscular volume (MCV)Ordered By: Dimitry Lott on 04-07-2023 MCV (RBC) [Entitic vol] 89.3 fL 80-94 [facility] Erythrocyte distribution wid th ratioOrdered By: Dimitry Lott on 04-07-2023 Erythrocyte distribution width (RBC) [Ratio] 15.7 % 11.6-14.6 [facility] Erythrocyte distribution wid th standard deviationOrdered By: Dimitry Lott on 04-07-2023 Erythrocyte distribution width (RBC) [Entitic vol] 50.7 fL 35.1-43.9 [facility] Hematocrit Auto (Bld) [Volum e fraction]Ordered By: Dimitry Lott on 04-07-2023 Hematocrit (Bld) [Volume fraction] 32.4 % 40-54 [facility] Immature granulocytes/100 WB C Auto (Bld)Ordered By: Dimitry Lott on 04-07-2023 Immature granulocytes/100 WBC (Bld) 0.300 % 0.0-0.9 [facility] Comment on above: IG% - Immature Granu locytes (promyelocytes, myelocytes and metamyelocytes) > 1% indicates that a LEFT SHIFT is Present. Laboratory - Chemistry and C hemistry - challengeOrdered By: Dimitry Lott on 04-07-2023 CO2 [Moles/Vol] 32.0 mmol/L 21.0-32.0 [facility] Urea nitrogen/Creatinine [Mass ratio] 21.7 mg/mg 10-20 [facility] Laboratory - Hematology and Cell countsOrdered By: Dimitry Lott on 04-07-2023 MCH (RBC) [Entitic mass] 27.5 pg 27.0-32.0 [facility] MCHC (RBC) [Mass/Vol] 30.9 g/dL 32-36 [facility] Nucleated RBC/100 WBC (Bld) [Ratio] 0 % 0-5 [facility] Platelets (Bld) [#/Vol] 110 10*3/uL 150-450 [facility] No Panel InformationOrdered By: Dimitry Lott on 04-07-2023 Estimated Creatinine Clearance Calc 26.68 ml/min [facility] Estimated GFR (MDRD) Amer 38 mL/min >60 [facility] Comment on above: GFR Calc Estimated GFR (MDRD) Non-Af Amer 31 mL/min >60 [facility] Comment on above: Non- GFR Calc Troponin I High Sensitivity 36 pg/mL 3.0-78.0 [facility] Comment on above: Please Note: New Arti t Units and Gender Specific Reference Ranges. For more information see Policy Stat Procedure [place] High Sensitivity Troponin (TNIH) and attachments. Platelet mean volume Pee-Ec ker (Bld) [Entitic vol]Ordered By: Dimitry Lott on 04-07-2023 Platelet mean volume (Bld) [Entitic vol] 11.0 fL 6.2-12.0 [facility] RBC Auto (Bld) [#/Vol]Ordere d By: Dimitry Lott on 04-07-2023 RBC (Bld) [#/Vol] 3.63 10*6/uL 4.6-6.2 [facility] Serum or plasma calcium elmira urement (mass/volume)Ordered By: Dimitry Lott on 04-07-2023 Calcium [Mass/Vol] 9.2 mg/dL 8.5-10.1 [facility] Serum or plasma creatinine m easurement (mass/volume)Ordered By: Dimitry Lott on 04-07-2023 Creatinine [Mass/Vol] 2.17 mg/dL 0.70-1.30 [facility] Comment on above: The validity of the calculated GFR & GFRAA in patients over 70 years has not been determined. Clinical correlation is essential. Serum or plasma urea nitroge n measurement (mass/volume)Ordered By: Dimitry Lott on 04-07-2023 Urea nitrogen [Mass/Vol] 47 mg/dL 7-18 [facility] Thin prep Papanicolaou smear with manual screeningOrdered By: Dimitry Lott on 04-07-2023 Thin prep Papanicolaou smear with manual screening 5 5-15 [facility] Thin prep Papanicolaou smear with manual screeningOrdered By: Fredy Joy on 04-02-2023 Thin prep Papanicolaou smear with manual screening 170 mg/dL 74-106 [facility] Comment on above: MANAGEMENT OF PATIEN T CARE PER NURSING PROTOCOL US RENALon 03-22-2023 US RENAL Normal [facility] ([place]) .Auto Diffon 03-21-2023 Basophil, Absolute 0.0 10 3/mcL Normal 0.0-0.2 [facility] ([place]) Comment on above: Performed By: #### G FR, CMP, ADIFF, CBC, ANEU ####Katie [address] [place], [place] [address] Basophils/100 WBC (Bld) 0.8 % Normal 0.0-2.5 [facility] ([place]) Comment on above: Performed By: #### G FR, CMP, ADIFF, CBC, ANEU ####Katie [address] [place], [place] [address] Eosinophil, Absolute 0.1 10 3/mcL Normal 0.0-0.4 [facility] ([place]) Comment on above: Performed By: #### G FR, CMP, ADIFF, CBC, ANEU ####Katie [address] [place], [place] [address] Eosinophils/100 WBC (Bld) 1.4 % Normal 0.0-7.0 [facility] ([place]) Comment on above: Performed By: #### G FR, CMP, ADIFF, CBC, ANEU ####Katie [address] [place], [place] [address] Lymphocyte, Absolute 1.3 10 3/mcL Normal 0.8-3.9 [facility] ([place]) Comment on above: Performed By: #### G FR, CMP, ADIFF, CBC, ANEU ####Katie [address] [place], [place] [address] Lymphocytes/100 WBC (Bld) 25.8 % Normal 10.0-50.0 [facility] ([place]) Comment on above: Performed By: #### G FR, CMP, ADIFF, CBC, ANEU ####[address] [place], [place] [address] Monocyte, Absolute 0.4 10 3/mcL Normal 0.2-1.0 [facility] ([place]) Comment on above: Performed By: #### G FR, CMP, ADIFF, CBC, ANEU ####[address] [place], [place] [address] Monocytes/100 WBC (Bld) 8.6 % Normal 1.7-13.0 [facility] ([place]) Comment on above: Performed By: #### G FR, CMP, ADIFF, CBC, ANEU ####[address] [place], [place] [address] Neutrophils/100 WBC (Bld) 63.4 % Normal 37.0-80.0 [facility] ([place]) Comment on above: Performed By: #### G FR, CMP, ADIFF, CBC, ANEU ####[address] [place], [place] [address] .GFRon 03-21-2023 GFR Non- 29 ml/min/1.73sqm Normal [facility] ([place]) Comment on above: Result Comment: GFR Population mean for , Non- Americans Ages 20-29 = 116 mL/min/1.73 sq.m. Ages 30-39 = 107 mL/min/1.73 sq.m. Ages 40-49 = 99 mL/min/1.73 sq.m. Ages 50-59 = 93 mL/min/1.73 sq.m. Ages 60-69 = 85 mL/min/1.73 sq.m. Ages 70+ = 75 mL/min/1.73 sq.m.Chronic Kidney Disease: Less than 60 mL/min/1.73 square metersEnd Stage Renal Disease: Less than 15 mL/min/1.73 square meters Performed By: #### G FR, CMP, ADIFF, CBC, ANEU ####[address] [place], [place] [address] GFR 35 ml/min/1.73sqm Normal [facility] ([place]) Comment on above: Result Comment: GFR Population mean for , Non- Americans Ages 20-29 = 116 mL/min/1.73 sq.m. Ages 30-39 = 107 mL/min/1.73 sq.m. Ages 40-49 = 99 mL/min/1.73 sq.m. Ages 50-59 = 93 mL/min/1.73 sq.m. Ages 60-69 = 85 mL/min/1.73 sq.m. Ages 70+ = 75 mL/min/1.73 sq.m.Chronic Kidney Disease: Less than 60 mL/min/1.73 square metersEnd Stage Renal Disease: Less than 15 mL/min/1.73 square meters Performed By: #### G FR, CMP, ADIFF, CBC, ANEU ####[address] [place], [place] [address] .NEUABSon 03-21-2023 Neutrophil, Absolute 3.3 10 3/mcL Normal 2.9-6.2 [facility] ([place]) Comment on above: Performed By: #### G FR, CMP, ADIFF, CBC, ANEU ####[address] [place], [place] [address] CBCon 03-21-2023 Erythrocyte distribution width (RBC) [Ratio] 17.4 % High 11.5-14.5 [facility] ([place]) Comment on above: Performed By: #### G FR, CMP, ADIFF, CBC, ANEU ####[address] [place], [place] [address] Hematocrit (Bld) [Volume fraction] 31.1 % Low 42.0-52.0 [facility] ([place]) Comment on above: Performed By: #### G FR, CMP, ADIFF, CBC, ANEU ####[address] [place], [place] [address] Hgb 10.3 G/dL Low 14.0-18.0 [facility] ([place]) Comment on above: Performed By: #### G FR, CMP, ADIFF, CBC, ANEU ####[address] [place], [place] [address] MCH (RBC) [Entitic mass] 27.8 pg Normal 27.0-31.2 [facility] ([place]) Comment on above: Performed By: #### G FR, CMP, ADIFF, CBC, ANEU ####[address] [place], [place] [address] MCHC 33.0 G/dL Normal 31.8-35.4 [facility] ([place]) Comment on above: Performed By: #### G FR, CMP, ADIFF, CBC, ANEU ####Katie [address] [place], [place] [address] MCV (RBC) [Entitic vol] 84.1 fL Normal 80.0-94.0 [facility] ([place]) Comment on above: Performed By: #### G FR, CMP, ADIFF, CBC, ANEU ####Katie [address] [place], [place] [address] Platelet 136 10 3/mcL Normal 130-400 [facility] ([place]) Comment on above: Performed By: #### G FR, CMP, ADIFF, CBC, ANEU ####Katie [address] [place], [place] [address] Platelet mean volume (Bld) [Entitic vol] 8.4 fL Normal 7.4-10.4 [facility] ([place]) Comment on above: Performed By: #### G FR, CMP, ADIFF, CBC, ANEU ####[address] [place], [place] [address] RBC 3.70 10 6/mcL Low 4.04-6.13 [facility] ([place]) Comment on above: Performed By: #### G FR, CMP, ADIFF, CBC, ANEU ####[address] [place], [place] [address] WBC 5.2 10 3/mcL Normal 4.6-10.8 [facility] ([place]) Comment on above: Performed By: #### G FR, CMP, ADIFF, CBC, ANEU ####Katie [address] [place], [place] [address] CMPon 03-21-2023 Albumin Level 3.4 G/dL Normal 3.4-4.8 [facility] ([place]) Comment on above: Performed By: #### G FR, CMP, ADIFF, CBC, ANEU ####[address] [place], [place] [address] Albumin/Globulin [Mass ratio] 1.0 {ratio} Low 1.1-2.5 [facility] ([place]) Comment on above: Performed By: #### G FR, CMP, ADIFF, CBC, ANEU ####Katie [address] [place], [place] [address] ALP [Catalytic activity/Vol] 85 U/L Normal 40-135 [facility] ([place]) Comment on above: Performed By: #### G FR, CMP, ADIFF, CBC, ANEU ####Katie [address] [place], [place] [address] ALT [Catalytic activity/Vol] 37 U/L Normal 16-63 [facility] ([place]) Comment on above: Performed By: #### G FR, CMP, ADIFF, CBC, ANEU ####Katie [address] [place], [place] [address] AST [Catalytic activity/Vol] 28 U/L Normal 10-40 [facility] ([place]) Comment on above: Performed By: #### G FR, CMP, ADIFF, CBC, ANEU ####Katie [address] [place], [place] [address] Bili Total 0.7 mg/dL Normal 0.2-1.0 [facility] ([place]) Comment on above: Result Comment: Use of this assay is not recommended for patients undergoing treatment with eltrombopag due to the potential for falsely elevated results. Performed By: #### G FR, CMP, ADIFF, CBC, ANEU ####[address] [place], [place] [address] BUN/Creatinine Ratio 21 ratio Normal 7-27 [facility] ([place]) Comment on above: Performed By: #### G FR, CMP, ADIFF, CBC, ANEU ####[address] [place], [place] [address] Calcium [Mass/Vol] 9.2 mg/dL Normal 8.4-10.2 [facility] ([place]) Comment on above: Performed By: #### G FR, CMP, ADIFF, CBC, ANEU ####[address] [place], [place] [address] Chloride [Moles/Vol] 101 mmol/L Normal 98-107 [facility] ([place]) Comment on above: Performed By: #### G FR, CMP, ADIFF, CBC, ANEU ####[address] [place], [place] [address] CO2 [Moles/Vol] 31 mmol/L Normal 23-31 [facility] ([place]) Comment on above: Performed By: #### G FR, CMP, ADIFF, CBC, ANEU ####[address] [place], [place] [address] Creatinine [Mass/Vol] 2.20 mg/dL High 0.70-1.30 [facility] ([place]) Comment on above: Performed By: #### G FR, CMP, ADIFF, CBC, ANEU ####[address] [place], [place] [address] Electrolyte Balance 10.0 mEq/L Normal 4.0-15.0 [facility] ([place]) Comment on above: Performed By: #### G FR, CMP, ADIFF, CBC, ANEU ####[address] [place], [place] [address] Globulin 3.5 G/dL Normal [facility] ([place]) Comment on above: Performed By: #### G FR, CMP, ADIFF, CBC, ANEU ####[address] [place], [place] [address] Glucose [Mass/Vol] 150 mg/dL High 83-110 [facility] ([place]) Comment on above: Performed By: #### G FR, CMP, ADIFF, CBC, ANEU ####[address] [place], [place] [address] Potassium [Moles/Vol] 4.4 mmol/L Normal 3.5-5.1 [facility] ([place]) Comment on above: Performed By: #### G FR, CMP, ADIFF, CBC, ANEU ####[address] [place], [place] [address] Sodium [Moles/Vol] 142 mmol/L Normal 136-145 [facility] ([place]) Comment on above: Performed By: #### G FR, CMP, ADIFF, CBC, ANEU ####[address] [place], [place] [address] Total Protein 6.9 G/dL Normal 6.4-8.2 [facility] ([place]) Comment on above: Performed By: #### G FR, CMP, ADIFF, CBC, ANEU ####[address] [place], [place] [address] Urea nitrogen [Mass/Vol] 47 mg/dL High 7-18 [facility] ([place]) Comment on above: Performed By: #### G FR, CMP, ADIFF, CBC, ANEU ####Katie [address] [place], [place] [address] Absolute lymphocyte countOrd ered By: Fred Ramos on 03-09-2023 Lymphocytes Auto (Unsp spec) [#/Vol] 1.07 10*3/uL 0.83-4.51 [facility] Basophil percentageOrdered B y: Fred Ramos on 03-09-2023 Basophils/100 WBC (Bld) 0.5 % 0-1 [facility] Chloride [Moles/Vol] 110 mmol/L 98-107 [facility] Eosinophils/100 WBC (Bld) 5.8 % 0-5 [facility] Glucose [Mass/Vol] 123 mg/dL 74-106 [facility] Comment on above: Fasting Glucose resu lt from 100 to 125 mg/dL suggests IMPAIRED HOMEOSTASIS per A.D.A. criteria. Neutrophils (Bld) [#/Vol] 2.4 10*3/uL 2.0-7.7 [facility] Neutrophils/100 WBC (Bld) 57.7 % 47-70 [facility] Potassium [Moles/Vol] 4.3 mmol/L 3.5-5.1 [facility] Sodium [Moles/Vol] 143 mmol/L 136-145 [facility] WBC (Bld) [#/Vol] 4.2 10*3/uL 4.4-11.0 [facility] Blood erythrocytes count (nu mber/volume)Ordered By: Fred Ramos on 03-09-2023 RBC (Bld) [#/Vol] 3.44 10*6/uL 4.6-6.2 [facility] Blood hemoglobin measurement (mass/volume)Ordered By: Fred Ramos on 03-09-2023 Hemoglobin (Bld) [Mass/Vol] 9.3 g/dL 13.0-16.5 [facility] Blood lymphocytes/100 leukoc ytesOrdered By: Fred Ramos on 03-09-2023 Lymphocytes/100 WBC (Bld) 25.7 % 19-41 [facility] Blood monocytes/100 leukocyt esOrdered By: Fred Ramos on 03-09-2023 Monocytes/100 WBC (Bld) 9.8 % 0-10 [facility] Blood platelet mean volumeOr dered By: Fred Ramos on 03-09-2023 Platelet mean volume (Bld) [Entitic vol] 11.1 fL 6.2-12.0 [facility] Clostridioides difficile nuc leic acid assay by PCROrdered By: Fred Ramos on 03-09-2023 C. difficile DNA JOSH+probe Ql (Unsp spec) [facility] Clostridium difficile detect ion by polymerase chain reactionOrdered By: Fred Ramos on 03-09-2023 C. difficile DNA JOSH+probe Ql (Unsp spec) [facility] Determination of erythrocyte mean corpuscular volume (MCV)Ordered By: Fred Ramos on 03-09-2023 MCV (RBC) [Entitic vol] 87.8 fL 80-94 [facility] Glucose Glucometer (dC) [M ass/Vol]Ordered By: Fred Ramos on 03-09-2023 Glucose [Mass/Vol] 167 mg/dL 74-106 [facility] Comment on above: MANAGEMENT OF PATIEN T CARE PER NURSING PROTOCOL Hematocrit Auto (Bld) [Volum e fraction]Ordered By: Fred Ramos on 12-29-2023 Hematocrit (Bld) [Volume fraction] 30.2 % 40-54 [facility] - Chemistry and C hemistry - challengeOrdered By: Fred Ramos on 03-09-2023 CO2 [Moles/Vol] 28.0 mmol/L 21.0-32.0 [facility] Urea nitrogen/Creatinine [Mass ratio] 26.2 mg/mg 10-20 [facility] - Hematology and Cell countsOrdered By: Fred Ramos on 03-09-2023 Erythrocyte distribution width (RBC) [Entitic vol] 55.2 fL 35.1-43.9 [facility] Erythrocyte distribution width (RBC) [Ratio] 17.4 % 11.6-14.6 [facility] Immature granulocytes/100 WBC (Bld) 0.500 % 0.0-0.9 [facility] Comment on above: IG% - Immature Granu locytes (promyelocytes, myelocytes and metamyelocytes) > 1% indicates that a LEFT SHIFT is Present. MCH (RBC) [Entitic mass] 27.0 pg 27.0-32.0 [facility] Nucleated RBC/100 WBC (Bld) [Ratio] 0 % 0-5 [facility] MCHC Auto (RBC) [Mass/Vol]Or dered By: Fred Ramos on 03-09-2023 MCHC (RBC) [Mass/Vol] 30.8 g/dL 32-36 [facility] No Panel InformationOrdered By: Fred Ramos on 03-09-2023 Estimated Creatinine Clearance Calc 25.49 ml/min [facility] Estimated GFR (MDRD) Amer 43 mL/min >60 [facility] Comment on above: GFR Calc Estimated GFR (MDRD) Non-Af Amer 36 mL/min >60 [facility] Comment on above: Non- GFR Calc Platelets bldOrdered By: Alana Ramos on 03-09-2023 Platelets (Bld) [#/Vol] 108 10*3/uL 150-450 [facility] Serum or plasma calcium elmira urement (mass/volume)Ordered By: Fred Ramos on 03-09-2023 Calcium [Mass/Vol] 9.5 mg/dL 8.5-10.1 [facility] Serum or plasma creatinine m easurement (mass/volume)Ordered By: Fred Ramos on 03-09-2023 Creatinine [Mass/Vol] 1.91 mg/dL 0.70-1.30 [facility] Comment on above: The validity of the calculated GFR & GFRAA in patients over 70 years has not been determined. Clinical correlation is essential. Serum or plasma urea nitroge n measurement (mass/volume)Ordered By: Fred Ramos on 03-09-2023 Urea nitrogen [Mass/Vol] 50 mg/dL 7-18 [facility] Stool enteric pathogen panel by probe and target amplification methodOrdered By: Fred Ramos on 03-09-2023 Gastrointestinal pathogens panel JOSH+probe (Stl) [facility] Gastrointestinal pathogens panel JOSH+probe (Stl) [facility] Thin prep Papanicolaou smear with manual screeningOrdered By: Fred Ramos on 03-09-2023 Thin prep Papanicolaou smear with manual screening 5 5-15 [facility] Blood manual differential co mment interpretation (narrative result)Ordered By: Romario Blancas on 03-08-2023 Manual differential comment Ric (Bld) [Interp] SCANNED [facility] Comment on above: MODERATE DECREASED T HROMBOCYTOPENIA Giardia lamblia ag stool EIA Ordered By: Fred Ramos on 03-08-2023 G. lamblia Ag IA Ql (Stl) Negative Negative [facility] Comment on above: Performed at: [address] [id number] Director: Tanmay Damon PhD, Phone: [phone] Absolute lymphocyte countOrd ered By: Eric Lester on 03-07-2023 Lymphocytes Auto (Unsp spec) [#/Vol] 1.02 10*3/uL 0.83-4.51 [facility] Basophil percentageOrdered B y: Eric Lester on 03-07-2023 Basophils/100 WBC (Bld) 0.2 % 0-1 [facility] Chloride [Moles/Vol] 107 mmol/L 98-107 [facility] Eosinophils/100 WBC (Bld) 2.5 % 0-5 [facility] Glucose [Mass/Vol] 223 mg/dL 74-106 [facility] Comment on above: Glucose result great er than or equal to 200 mg/dLsuggests DIABETES MELLITUS per A.D.A. criteria. Neutrophils (Bld) [#/Vol] 2.6 10*3/uL 2.0-7.7 [facility] Neutrophils/100 WBC (Bld) 63.7 % 47-70 [facility] Potassium [Moles/Vol] 4.2 mmol/L 3.5-5.1 [facility] Sodium [Moles/Vol] 143 mmol/L 136-145 [facility] WBC (Bld) [#/Vol] 4.0 10*3/uL 4.4-11.0 [facility] Blood erythrocytes count (nu mber/volume)Ordered By: Eric Lester on 03-07-2023 RBC (Bld) [#/Vol] 2.70 10*6/uL 4.6-6.2 [facility] Blood hemoglobin measurement (mass/volume)Ordered By: Eric Lester on 03-07-2023 Hemoglobin (Bld) [Mass/Vol] 7.5 g/dL 13.0-16.5 [facility] Blood lymphocytes/100 leukoc ytesOrdered By: Eric Lester on 03-07-2023 Lymphocytes/100 WBC (Bld) 25.2 % 19-41 [facility] Blood monocytes/100 leukocyt esOrdered By: Eric Lester on 03-07-2023 Monocytes/100 WBC (Bld) 8.2 % 0-10 [facility] Blood platelet mean volumeOr dered By: Eric Lester on 03-07-2023 Platelet mean volume (Bld) [Entitic vol] 11.9 fL 6.2-12.0 [facility] Determination of erythrocyte mean corpuscular volume (MCV)Ordered By: Eric Lester on 03-07-2023 MCV (RBC) [Entitic vol] 90.7 fL 80-94 [facility] Hematocrit Auto (Bld) [Volum e fraction]Ordered By: Eric Lester on 03-07-2023 Hematocrit (Bld) [Volume fraction] 24.5 % 40-54 [facility] Influenza virus A and B and SARS-CoV-2 (COVID-19) Ag panel - Upper respiratory specimOrdered By: Eric Lester on 03-07-2023 SARS-CoV-2 (COVID-19) RNA JOSH+probe Ql (Resp) [facility] - Chemistry and C hemistry - challengeOrdered By: Eric Lester on 03-07-2023 CO2 [Moles/Vol] 29.0 mmol/L 21.0-32.0 [facility] Natriuretic peptide B (Bld) [Mass/Vol] 78.3 pg/mL 0-100 [facility] Urea nitrogen/Creatinine [Mass ratio] 28.8 mg/mg 10-20 [facility] - Hematology and Cell countsOrdered By: Eric Lester on 03-07-2023 Erythrocyte distribution width (RBC) [Entitic vol] 55.5 fL 35.1-43.9 [facility] Erythrocyte distribution width (RBC) [Ratio] 17.1 % 11.6-14.6 [facility] Immature granulocytes/100 WBC (Bld) 0.200 % 0.0-0.9 [facility] Comment on above: IG% - Immature Granu locytes (promyelocytes, myelocytes and metamyelocytes) > 1% indicates that a LEFT SHIFT is Present. MCH (RBC) [Entitic mass] 27.8 pg 27.0-32.0 [facility] Nucleated RBC/100 WBC (Bld) [Ratio] 0 % 0-5 [facility] Lower GI hemoglobin IA Ql (S tl)Ordered By: Eric Lester on 03-07-2023 Stool Occult Blood (CLARY) Positive [facility] MCHC Auto (RBC) [Mass/Vol]Or dered By: Eric Lester on 03-07-2023 MCHC (RBC) [Mass/Vol] 30.6 g/dL 32-36 [facility] No Panel InformationOrdered By: Eric Lester on 03-07-2023 Estimated Creatinine Clearance Calc 18.24 ml/min [facility] Estimated GFR (MDRD) Amer 30 mL/min >60 [facility] Comment on above: GFR Calc Estimated GFR (MDRD) Non-Af Amer 24 mL/min >60 [facility] Comment on above: Non- GFR Calc Troponin I High Sensitivity 34 pg/mL 3.0-78.0 [facility] Comment on above: Please Note: New Arti t Units and Gender Specific Reference Ranges. For more information see Policy Stat Procedure [place] High Sensitivity Troponin (TNIH) and attachments. Platelets bldOrdered By: Sky Lester on 03-07-2023 Platelets (Bld) [#/Vol] 107 10*3/uL 150-450 [facility] Serum or plasma calcium elmira urement (mass/volume)Ordered By: Eric Lester on 03-07-2023 Calcium [Mass/Vol] 9.1 mg/dL 8.5-10.1 [facility] Serum or plasma creatinine m easurement (mass/volume)Ordered By: Eric Lester on 03-07-2023 Creatinine [Mass/Vol] 2.67 mg/dL 0.70-1.30 [facility] Comment on above: The validity of the calculated GFR & GFRAA in patients over 70 years has not been determined. Clinical correlation is essential. Serum or plasma urea nitroge n measurement (mass/volume)Ordered By: Eric Lester on 03-07-2023 Urea nitrogen [Mass/Vol] 77 mg/dL 7-18 [facility] Thin prep Papanicolaou smear with manual screeningOrdered By: Eric Lester on 03-07-2023 Thin prep Papanicolaou smear with manual screening 7 5-15 [facility] Upper respiratory specimen i nfluenza A virus, influenza B virus, and severe acute resOrdered By: Eric Lester on 03-07-2023 Upper respiratory specimen influenza A virus, influenza B virus, and severe acute res [facility] Upper respiratory specimen i nfluenza A virus, influenza B virus, and severe acute respiratory syndromOrdered By: Eric Lester on 03-07-2023 Upper respiratory specimen influenza A virus, influenza B virus, and severe acute respiratory syndrom [facility] .Auto Diffon 02-28-2023 Basophil, Absolute 0.0 10 3/mcL Normal 0.0-0.2 [facility] ([place]) Comment on above: Performed By: #### G FR, CMP, ANEU, URIC, ADIFF, CBC ####Katie [address] [place], [place] [address] Basophils/100 WBC (Bld) 0.4 % Normal 0.0-2.5 [facility] ([place]) Comment on above: Performed By: #### G FR, CMP, ANEU, URIC, ADIFF, CBC ####Katie [address] [place], [place] [address] Eosinophil, Absolute 0.2 10 3/mcL Normal 0.0-0.4 [facility] ([place]) Comment on above: Performed By: #### G FR, CMP, ANEU, URIC, ADIFF, CBC ####Katie [address] [place], [place] [address] Eosinophils/100 WBC (Bld) 2.4 % Normal 0.0-7.0 [facility] ([place]) Comment on above: Performed By: #### G FR, CMP, ANEU, URIC, ADIFF, CBC ####Katie [address] [place], [place] [address] Lymphocyte, Absolute 1.1 10 3/mcL Normal 0.8-3.9 [facility] ([place]) Comment on above: Performed By: #### G FR, CMP, ANEU, URIC, ADIFF, CBC ####Katie [address] [place], [place] [address] Lymphocytes/100 WBC (Bld) 16.1 % Normal 10.0-50.0 [facility] ([place]) Comment on above: Performed By: #### G FR, CMP, ANEU, URIC, ADIFF, CBC ####Katie [address] [place], [place] [address] Monocyte, Absolute 0.4 10 3/mcL Normal 0.2-1.0 [facility] ([place]) Comment on above: Performed By: #### G FR, CMP, ANEU, URIC, ADIFF, CBC ####Katie [address] [place], [place] [address] Monocytes/100 WBC (Bld) 5.1 % Normal 1.7-13.0 [facility] ([place]) Comment on above: Performed By: #### G FR, CMP, ANEU, URIC, ADIFF, CBC ####Katie [address] [place], [place] [address] Neutrophils/100 WBC (Bld) 76.0 % Normal 37.0-80.0 [facility] ([place]) Comment on above: Performed By: #### G FR, CMP, ANEU, URIC, ADIFF, CBC ####[address] [place], [place] [address] .GFRon 02-28-2023 GFR 31 ml/min/1.73sqm Normal [facility] ([place]) Comment on above: Result Comment: GFR Population mean for , Non- Americans Ages 20-29 = 116 mL/min/1.73 sq.m. Ages 30-39 = 107 mL/min/1.73 sq.m. Ages 40-49 = 99 mL/min/1.73 sq.m. Ages 50-59 = 93 mL/min/1.73 sq.m. Ages 60-69 = 85 mL/min/1.73 sq.m. Ages 70+ = 75 mL/min/1.73 sq.m.Chronic Kidney Disease: Less than 60 mL/min/1.73 square metersEnd Stage Renal Disease: Less than 15 mL/min/1.73 square meters Performed By: #### G FR, CMP, ANEU, URIC, ADIFF, CBC ####K[address] [place], [place] [address] GFR Non- 26 ml/min/1.73sqm Normal [facility] ([place]) Comment on above: Result Comment: GFR Population mean for , Non- Americans Ages 20-29 = 116 mL/min/1.73 sq.m. Ages 30-39 = 107 mL/min/1.73 sq.m. Ages 40-49 = 99 mL/min/1.73 sq.m. Ages 50-59 = 93 mL/min/1.73 sq.m. Ages 60-69 = 85 mL/min/1.73 sq.m. Ages 70+ = 75 mL/min/1.73 sq.m.Chronic Kidney Disease: Less than 60 mL/min/1.73 square metersEnd Stage Renal Disease: Less than 15 mL/min/1.73 square meters Performed By: #### G FR, CMP, ANEU, URIC, ADIFF, CBC ####K[address] [place], [place] [address] .NEUABSon 02-28-2023 Neutrophil, Absolute 5.3 10 3/mcL Normal 2.9-6.2 [facility] ([place]) Comment on above: Performed By: #### G FR, CMP, ANEU, URIC, ADIFF, CBC ####Katie [address] [place], [place] [address] CBCon 02-28-2023 Erythrocyte distribution width (RBC) [Ratio] 17.6 % High 11.5-14.5 [facility] ([place]) Comment on above: Performed By: #### G FR, CMP, ANEU, URIC, ADIFF, CBC ####Katie [address] [place] [address] Hematocrit (Bld) [Volume fraction] 28.8 % Low 42.0-52.0 [facility] ([place]) Comment on above: Performed By: #### G FR, CMP, ANEU, URIC, ADIFF, CBC ####Katie [address] [place] [address] Hgb 9.2 G/dL Low 14.0-18.0 [facility] ([place]) Comment on above: Performed By: #### G FR, CMP, ANEU, URIC, ADIFF, CBC ####Katie [address] [place] [address] MCH (RBC) [Entitic mass] 26.7 pg Low 27.0-31.2 [facility] ([place]) Comment on above: Performed By: #### G FR, CMP, ANEU, URIC, ADIFF, CBC ####Katie [address] [place] [address] MCHC 32.0 G/dL Normal 31.8-35.4 [facility] ([place]) Comment on above: Performed By: #### G FR, CMP, ANEU, URIC, ADIFF, CBC ####Katie [address] [place] [id number] MCV (RBC) [Entitic vol] 83.5 fL Normal 80.0-94.0 [facility] ([place]) Comment on above: Performed By: #### G FR, CMP, ANEU, URIC, ADIFF, CBC ####Katie [address] [place], [place] [address] Platelet 91 10 3/mcL Low 130-400 [facility] ([place]) Comment on above: Performed By: #### G FR, CMP, ANEU, URIC, ADIFF, CBC ####Katie [address] [place], [place] [address] Platelet mean volume (Bld) [Entitic vol] 9.9 fL Normal 7.4-10.4 [facility] ([place]) Comment on above: Performed By: #### G FR, CMP, ANEU, URIC, ADIFF, CBC ####[address] [place], [place] [address] RBC 3.45 10 6/mcL Low 4.04-6.13 [facility] ([place]) Comment on above: Performed By: #### G FR, CMP, ANEU, URIC, ADIFF, CBC ####[address] [place], [place] [address] WBC 7.0 10 3/mcL Normal 4.6-10.8 [facility] ([place]) Comment on above: Performed By: #### G FR, CMP, ANEU, URIC, ADIFF, CBC ####[address] [place], [place] [address] CMPon 02-28-2023 Albumin Level 3.2 G/dL Low 3.4-4.8 [facility] ([place]) Comment on above: Performed By: #### G FR, CMP, ANEU, URIC, ADIFF, CBC ####[address] [place], [place] [address] Albumin/Globulin [Mass ratio] 1.0 {ratio} Low 1.1-2.5 [facility] ([place]) Comment on above: Performed By: #### G FR, CMP, ANEU, URIC, ADIFF, CBC ####[address] [place], [place] [address] ALP [Catalytic activity/Vol] 72 U/L Normal 40-135 [facility] ([place]) Comment on above: Performed By: #### G FR, CMP, ANEU, URIC, ADIFF, CBC ####[address] [place], [place] [address] ALT [Catalytic activity/Vol] 50 U/L Normal 16-63 [facility] ([place]) Comment on above: Performed By: #### G FR, CMP, ANEU, URIC, ADIFF, CBC ####[address] [place], [place] [address] AST [Catalytic activity/Vol] 18 U/L Normal 10-40 [facility] ([place]) Comment on above: Performed By: #### G FR, CMP, ANEU, URIC, ADIFF, CBC ####[address] [place], [place] [address] Bili Total 1.0 mg/dL Normal 0.2-1.0 [facility] ([place]) Comment on above: Result Comment: Use of this assay is not recommended for patients undergoing treatment with eltrombopag due to the potential for falsely elevated results. Performed By: #### G FR, CMP, ANEU, URIC, ADIFF, CBC ####[address] [place], [place] [address] BUN/Creatinine Ratio 30 ratio High 7-27 [facility] ([place]) Comment on above: Performed By: #### G FR, CMP, ANEU, URIC, ADIFF, CBC ####[address] [place], [place] [address] Calcium [Mass/Vol] 9.4 mg/dL Normal 8.4-10.2 [facility] [place]) Comment on above: Performed By: #### G FR, CMP, ANEU, URIC, ADIFF, CBC ####[address] [place], [place] [address] Chloride [Moles/Vol] 103 mmol/L Normal 98-107 [facility] ([place]) Comment on above: Performed By: #### G FR, CMP, ANEU, URIC, ADIFF, CBC ####[address] [place], [place] [address] CO2 [Moles/Vol] 30 mmol/L Normal 23-31 [facility] ([place]) Comment on above: Performed By: #### G FR, CMP, ANEU, URIC, ADIFF, CBC ####[address] [place], [place] [address] Creatinine [Mass/Vol] 2.42 mg/dL High 0.70-1.30 [facility] ([place]) Comment on above: Performed By: #### G FR, CMP, ANEU, URIC, ADIFF, CBC ####[address] [place], [place] [address] Electrolyte Balance 9.0 mEq/L Normal 4.0-15.0 [facility] ([place]) Comment on above: Performed By: #### G FR, CMP, ANEU, URIC, ADIFF, CBC ####[address] [place], [place] [address] Globulin 3.2 G/dL Normal [facility] ([place]) Comment on above: Performed By: #### G FR, CMP, ANEU, URIC, ADIFF, CBC ####[address] [place], [place] [address] Glucose [Mass/Vol] 173 mg/dL High 83-110 [facility] ([place]) Comment on above: Performed By: #### G FR, CMP, ANEU, URIC, ADIFF, CBC ####[address] [place], [place] [address] Potassium [Moles/Vol] 4.8 mmol/L Normal 3.5-5.1 [facility] ([place]) Comment on above: Performed By: #### G FR, CMP, ANEU, URIC, ADIFF, CBC ####[address] [place], [place] [address] Sodium [Moles/Vol] 142 mmol/L Normal 136-145 [facility] ([place]) Comment on above: Performed By: #### G FR, CMP, ANEU, URIC, ADIFF, CBC ####[address] [place], [place] [address] Total Protein 6.4 G/dL Normal 6.4-8.2 [facility] ([place]) Comment on above: Performed By: #### G FR, CMP, ANEU, URIC, ADIFF, CBC ####[address] [place], [place] [address] Urea nitrogen [Mass/Vol] 73 mg/dL High 7-18 [facility] ([place]) Comment on above: Performed By: #### G FR, CMP, ANEU, URIC, ADIFF, CBC ####[address] [place], [place] [address] LABORATORYOrdered By: SYSTEM SYSTEM on 02-28-2023 Albumin BCP dye [Mass/Vol] 3.2 G/dL Low 3.4 - 4.8 G/dL AO ADM SS Albumin/Globulin [Mass ratio] 1.0 {ratio} Low 1.1 - 2.5 ratio AO ADM SS ALP [Catalytic activity/Vol] 72 U/L Normal 40 - 135 U/L AO ADM SS ALT With P-5'-P [Catalytic activity/Vol] 50 U/L Normal 16 - 63 U/L AO ADM SS AST With P-5'-P [Catalytic activity/Vol] 18 U/L Normal 10 - 40 U/L AO ADM SS Basophil, Absolute 0.0 103/mcL Normal 0.0 - 0.2 10^3/mcL AO Workflow SS Basophils/100 WBC (Bld) 0.4 % Normal 0.0 - 2.5 % AO Workflow SS Bilirubin [Mass/Vol] 1.0 mg/dL Normal 0.2 - 1 .0 mg/dL AO ADM SS Comment on above: Interpretive Data: U se of this assay is not recommended for patients undergoing treatment with eltrombopag due to the potential for falsely elevated results. Calcium [Mass/Vol] 9.4 mg/dL Normal 8.4 - 10. 2 mg/dL AO ADM SS Chloride [Moles/Vol] 103 mmol/L Normal 98 - 10 7 mmol/L AO ADM SS CO2 [Moles/Vol] 30 mmol/L Normal 23 - 31 mmol/L AO ADM SS Creatinine [Mass/Vol] 2.42 mg/dL High 0.70 - 1.30 mg/dL AO ADM SS Electrolyte Balance 9.0 mEq/L Normal 4.0 - 15 .0 mEq/L AO ADM SS Eosinophil, Absolute 0.2 103/mcL Normal 0.0 - 0 .4 10^3/mcL AO Workflow SS Eosinophils/100 WBC (Bld) 2.4 % Normal 0.0 - 7.0 % AO Workflow SS Erythrocyte distribution width (RBC) [Ratio] 17.6 % High 11.5 - 14.5 % AO Workflow SS GFR/1.73 sq M.predicted among blacks MDRD (S/P/Bld) [Vol rate/Area] 31 ml/min/1.73sqm Invalid Interpretation Code AO Chemistry S Comment on above: Interpretive Data: GFR Population mean for , Non- Americans Ages 20-29 = 116 mL/min/1.73 sq.m. Ages 30-39 = 107 mL/min/1.73 sq.m. Ages 40-49 = 99 mL/min/1.73 sq.m. Ages 50-59 = 93 mL/min/1.73 sq.m. Ages 60-69 = 85 mL/min/1.73 sq.m. Ages 70+ = 75 mL/min/1.73 sq.m. Chronic Kidney Disease: Less than 60 mL/min/1.73 square meters End Stage Renal Disease: Less than 15 mL/min/1.73 square meters GFR/1.73 sq M.predicted among non-blacks MDRD (S/P/Bld) [Vol rate/Area] 26 ml/min/1.73sqm Invalid Interpretation Code AO Chemistry S Comment on above: Interpretive Data: GFR Population mean for , Non- Americans Ages 20-29 = 116 mL/min/1.73 sq.m. Ages 30-39 = 107 mL/min/1.73 sq.m. Ages 40-49 = 99 mL/min/1.73 sq.m. Ages 50-59 = 93 mL/min/1.73 sq.m. Ages 60-69 = 85 mL/min/1.73 sq.m. Ages 70+ = 75 mL/min/1.73 sq.m. Chronic Kidney Disease: Less than 60 mL/min/1.73 square meters End Stage Renal Disease: Less than 15 mL/min/1.73 square meters Globulin 3.2 G/dL Invalid Interpretation Code AO ADM SS Glucose [Mass/Vol] 173 mg/dL High 83 - 110 mg/dL AO ADM SS Hematocrit (Bld) [Volume fraction] 28.8 % Low 42.0 - 52.0 % AO Workflow SS Hemoglobin (Bld) [Mass/Vol] 9.2 G/dL Low 14.0 - 18.0 G/dL AO Workflow SS Lymphocyte, Absolute 1.1 103/mcL Normal 0.8 - 3 .9 10^3/mcL AO Workflow SS Lymphocytes/100 WBC (Bld) 16.1 % Normal 10.0 - 50.0 % AO Workflow SS MCH (RBC) [Entitic mass] 26.7 pg Low 27. 0 - 31.2 pg AO Workflow SS MCHC 32.0 G/dL Normal 31.8 - 35.4 G/dL AO Workflow SS MCV (RBC) [Entitic vol] 83.5 fL Normal 80.0 - 94.0 fL AO Workflow SS Monocyte, Absolute 0.4 103/mcL Normal 0.2 - 1.0 10^3/mcL AO Workflow SS Monocytes/100 WBC (Bld) 5.1 % Normal 1.7 - 13.0 % AO Workflow SS Neutrophil, Absolute 5.3 103/mcL Normal 2.9 - 6 .2 10^3/mcL AO Workflow SS Neutrophils/100 WBC (Bld) 76.0 % Normal 37.0 - 80.0 % AO Workflow SS Platelet mean volume (Bld) [Entitic vol] 9.9 fL Normal 7.4 - 10.4 fL AO Workflow SS Platelets (Bld) [#/Vol] 91 103/mcL Low 130 - 400 10^3/mcL AO Workflow SS Potassium [Moles/Vol] 4.8 mmol/L Normal 3.5 - 5.1 mmol/L AO ADM SS Protein [Mass/Vol] 6.4 G/dL Normal 6.4 - 8.2 G/dL AO ADM SS RBC (Bld) [#/Vol] 3.45 106/mcL Low 4.04 - 6.1 3 10^6/mcL AO Workflow SS Sodium [Moles/Vol] 142 mmol/L Normal 136 - 145 mmol/L AO ADM SS Urea nitrogen [Mass/Vol] 73 mg/dL High 7 - 18 mg/dL AO ADM SS Urea nitrogen/Creatinine [Mass ratio] 30 ratio High 7 - 27 ratio AO ADM SS Uric Acid Lvl 9.8 mg/dL High 3.5 - 7.2 mg/dL AO ADM SS WBC (Bld) [#/Vol] 7.0 103/mcL Normal 4.6 - 10.8 10^3/mcL AO Workflow SS URICon 02-28-2023 Uric Acid Lvl 9.8 mg/dL High 3.5-7.2 [facility] ([place]) Comment on above: Performed By: #### G FR, CMP, ANEU, URIC, ADIFF, CBC ####[place] [id number] [place] [address] SPEon 02-22-2023 SPE Interpretation Normal serum protein electrophoresis pattern. No abnormality detected. Normal [facility] ([place]) Comment on above: Result Comment: Elec tronically Signed by: MELONIE CERDA MD02/22/2023 12:24 EST Performed By: #### U JENNIFER, FERR, CBC, FES, ANEU, RFP, ADIFF, GFR, VIDH ####[place] [address]#### PTH, SPE ####[place] [address] Albumin 3.7 G/dL Normal 3.3-5.0 [facility] ([place]) Comment on above: Performed By: #### U JENNIFER, FERR, CBC, FES, ANEU, RFP, ADIFF, GFR, VIDH ####[place] [address]#### PTH, SPE ####[place] [address] Alpha 1 0.2 G/dL Normal 0.1-0.4 [facility] ([place]) Comment on above: Performed By: #### U JENNIFER, FERR, CBC, FES, ANEU, RFP, ADIFF, GFR, VIDH ####[place] [address]#### PTH, SPE ####[place] [address] Alpha 2 1.1 G/dL Normal 0.6-1.2 [facility] ([place]) Comment on above: Performed By: #### U JENNIFER, FERR, CBC, FES, ANEU, RFP, ADIFF, GFR, VIDH ####[place] [address]#### PTH, SPE ####[place] [address] Beta 1.1 G/dL Normal 0.6-1.3 [facility] ([place]) Comment on above: Performed By: #### U JENNIFER, FERR, CBC, FES, ANEU, RFP, ADIFF, GFR, VIDH ####[facility] [place], [place] [address]#### PTH, SPE ####[place] [address] Gamma 0.9 G/dL Normal 0.7-1.6 [facility] ([place]) Comment on above: Performed By: #### U JENNIFER, FERR, CBC, FES, ANEU, RFP, ADIFF, GFR, VIDH ####[facility] [place] [address]#### PTH, SPE ####[place] [address] .Urinalysis Microscopic (AO) on 02-21-2023 UA RBC 0-5 Abnormal None Seen [facility] ([place]) Comment on above: Performed By: #### U AMICAO, CRUR, UA, PRUR ####[place] [address] [place], [place] [address] UA Squam Epithelial 0-5 Abnormal None Seen [facility] ([place]) Comment on above: Performed By: #### U AMICAO, CRUR, UA, PRUR ####[place] [address] [place], [place] [address] UA WBC 0-5 Abnormal None Seen [facility] ([place]) Comment on above: Performed By: #### U AMICAO, CRUR, UA, PRUR ####K[address] [place], [place] [address] CRURon 02-21-2023 U Creatinine 71.9 mg/dL Normal 39.0-259.0 [facility] ([place]) Comment on above: Performed By: #### U AMICAO, CRUR, UA, PRUR ####[place] [address] [place], [place] [address] PRURon 02-21-2023 U Protein 19 mg/dL High 0-11 [facility] ([place]) Comment on above: Performed By: #### U AMICAO, CRUR, UA, PRUR ####[address] [place], [place] [address] UAon 02-21-2023 Color (U) Yellow Normal [facility] ([place]) Comment on above: Performed By: #### U AMICAO, CRUR, UA, PRUR ####[address] [place] [address] Glucose (U) [Mass/Vol] 500 mg/dL Abnormal Negative [facility] ([place]) Comment on above: Performed By: #### U AMICAO, CRUR, UA, PRUR ####[address] [place] [address] Ketones Ql (U) Negative Normal Negative [facility] ([place]) Comment on above: Performed By: #### U AMICAO, CRUR, UA, PRUR ####[address] [place] [address] UA Appear Clear Normal Clear [facility] ([place]) Comment on above: Performed By: #### U AMICAO, CRUR, UA, PRUR ####[place] [address] [place], [place] [address] UA Blood Negative Normal Negative [facility] ([place]) Comment on above: Performed By: #### U AMICAO, CRUR, UA, PRUR ####[address] [place], [place] [address] UA Leuk Est Negative Normal Negative [facility] ([place]) Comment on above: Performed By: #### U AMICAO, CRUR, UA, PRUR ####[address] [place], [place] [address] UA Nitrite Negative Normal Negative [facility] ([place]) Comment on above: Performed By: #### U AMICAO, CRUR, UA, PRUR ####[address] [place] [address] UA pH 5.5 Normal 5.0 - 8.0 [facility] ([place]) Comment on above: Performed By: #### U AMICAO, CRUR, UA, PRUR ####[address] [place], [place] [address] UA Protein 30 mg/dL Normal Negative [facility] ([place]) Comment on above: Performed By: #### U AMICAO, CRUR, UA, PRUR ####[address] [place], [place] [address] UA Spec Grav 1.015 Normal 1.015-1.025 [facility] ([place]) Comment on above: Performed By: #### U AMICAO, CRUR, UA, PRUR ####[address] [place], [place] [address] UA Specimen Type Not Given Normal [facility] ([place]) Comment on above: Performed By: #### U AMICAO, CRUR, UA, PRUR ####[address] [place], [place] [address] UA Urobilinogen 0.2 E.U./dL Normal 0.2-1.0 [facility] ([place]) Comment on above: Performed By: #### U AMICAO, CRUR, UA, PRUR ####[address] [place], [place] [address] Urobilinogen (U) [Mass/Vol] Negative Normal Negative [facility] ([place]) Comment on above: Performed By: #### U AMICAO, CRUR, UA, PRUR ####[address] [place], [place] [address] .Auto Diffon 02-20-2023 Basophil, Absolute 0.0 10 3/mcL Normal 0.0-0.2 [facility] ([place]) Comment on above: Performed By: #### U JENNIFER, FERR, CBC, FES, ANEU, RFP, ADIFF, GFR, VIDH ####[place] [address]#### PTH, SPE ####[address] [address] Basophils/100 WBC (Bld) 0.3 % Normal 0.0-2.5 [facility] ([place]) Comment on above: Performed By: #### U JENNIFER, FERR, CBC, FES, ANEU, RFP, ADIFF, GFR, VIDH ####[place] [address]#### PTH, SPE ####[address] [address] Eosinophil, Absolute 0.2 10 3/mcL Normal 0.0-0.4 [facility] ([place]) Comment on above: Performed By: #### U JENNIFER, FERR, CBC, FES, ANEU, RFP, ADIFF, GFR, VIDH ####[place] [address]#### PTH, SPE ####[address] [address] Eosinophils/100 WBC (Bld) 1.7 % Normal 0.0-7.0 [facility] ([place]) Comment on above: Performed By: #### U JENNIFER, FERR, CBC, FES, ANEU, RFP, ADIFF, GFR, VIDH ####[place] [address]#### PTH, SPE ####[address] [address] Lymphocyte, Absolute 2.6 10 3/mcL Normal 0.8-3.9 [facility] ([place]) Comment on above: Performed By: #### U JENNIFER, FERR, CBC, FES, ANEU, RFP, ADIFF, GFR, VIDH ####[place] [address]#### PTH, SPE ####[address] [address] Lymphocytes/100 WBC (Bld) 17.8 % Normal 10.0-50.0 [facility] ([place]) Comment on above: Performed By: #### U JENNIFER, FERR, CBC, FES, ANEU, RFP, ADIFF, GFR, VIDH ####[place] [address]#### PTH, SPE ####[place] [address] Monocyte, Absolute 0.9 10 3/mcL Normal 0.2-1.0 [facility] ([place]) Comment on above: Performed By: #### U JENNIFER, FERR, CBC, FES, ANEU, RFP, ADIFF, GFR, VIDH ####[address] [address]#### PTH, SPE ####[address] [address] Monocytes/100 WBC (Bld) 6.0 % Normal 1.7-13.0 [facility] ([place]) Comment on above: Performed By: #### U JENNIFER, FERR, CBC, FES, ANEU, RFP, ADIFF, GFR, VIDH ####[address] [address]#### PTH, SPE ####[address] [address] Neutrophils/100 WBC (Bld) 74.2 % Normal 37.0-80.0 [facility] ([place]) Comment on above: Performed By: #### U JENNIFER, FERR, CBC, FES, ANEU, RFP, ADIFF, GFR, VIDH ####[address] [address]#### PTH, SPE ####[address] [address] .GFRon 02-20-2023 GFR Non- 23 ml/min/1.73sqm Normal [facility] ([place]) Comment on above: Result Comment: GFR Population mean for , Non- Americans Ages 20-29 = 116 mL/min/1.73 sq.m. Ages 30-39 = 107 mL/min/1.73 sq.m. Ages 40-49 = 99 mL/min/1.73 sq.m. Ages 50-59 = 93 mL/min/1.73 sq.m. Ages 60-69 = 85 mL/min/1.73 sq.m. Ages 70+ = 75 mL/min/1.73 sq.m.Chronic Kidney Disease: Less than 60 mL/min/1.73 square metersEnd Stage Renal Disease: Less than 15 mL/min/1.73 square meters Performed By: #### U JENNIFER, FERR, CBC, FES, ANEU, RFP, ADIFF, GFR, VIDH ####[facility] [place] [id number]#### PTH, SPE ####[place] [address] GFR 27 ml/min/1.73sqm Normal [facility] ([place]) Comment on above: Result Comment: GFR Population mean for , Non- Americans Ages 20-29 = 116 mL/min/1.73 sq.m. Ages 30-39 = 107 mL/min/1.73 sq.m. Ages 40-49 = 99 mL/min/1.73 sq.m. Ages 50-59 = 93 mL/min/1.73 sq.m. Ages 60-69 = 85 mL/min/1.73 sq.m. Ages 70+ = 75 mL/min/1.73 sq.m.Chronic Kidney Disease: Less than 60 mL/min/1.73 square metersEnd Stage Renal Disease: Less than 15 mL/min/1.73 square meters Performed By: #### U JENNIFER, FERR, CBC, FES, ANEU, RFP, ADIFF, GFR, VIDH ####[facility] [place] [address]#### PTH, SPE ####[place] [address] .NEUABSon 02-20-2023 Neutrophil, Absolute 10.8 10 3/mcL High 2.9-6.2 [facility] ([place]) Comment on above: Performed By: #### U JENNIFER, FERR, CBC, FES, ANEU, RFP, ADIFF, GFR, VIDH ####[facility] [place] [id number]#### PTH, SPE ####[place] [address] CBCon 02-20-2023 Erythrocyte distribution width (RBC) [Ratio] 17.0 % High 11.5-14.5 [facility] ([place]) Comment on above: Performed By: #### U JENNIFER, FERR, CBC, FES, ANEU, RFP, ADIFF, GFR, VIDH ####[place] [address]#### PTH, SPE ####[place] [address] Hematocrit (Bld) [Volume fraction] 31.5 % Low 42.0-52.0 [facility] ([place]) Comment on above: Performed By: #### U JENNIFER, FERR, CBC, FES, ANEU, RFP, ADIFF, GFR, VIDH ####[place] [address]#### PTH, SPE ####[place] [address] Hgb 10.2 G/dL Low 14.0-18.0 [facility] ([place]) Comment on above: Performed By: #### U JENNIFER, FERR, CBC, FES, ANEU, RFP, ADIFF, GFR, VIDH ####[place] [address]#### PTH, SPE ####[place] [address] MCH (RBC) [Entitic mass] 26.5 pg Low 27.0-31.2 [facility] ([place]) Comment on above: Performed By: #### U JENNIFER, FERR, CBC, FES, ANEU, RFP, ADIFF, GFR, VIDH ####[place] [address]#### PTH, SPE ####[place] [address] MCHC 32.4 G/dL Normal 31.8-35.4 [facility] ([place]) Comment on above: Performed By: #### U JENNIFER, FERR, CBC, FES, ANEU, RFP, ADIFF, GFR, VIDH ####[place] [address]#### PTH, SPE ####[place] [address] MCV (RBC) [Entitic vol] 81.9 fL Normal 80.0-94.0 [facility] ([place]) Comment on above: Performed By: #### U JENNIFER, FERR, CBC, FES, ANEU, RFP, ADIFF, GFR, VIDH ####[place] [address]#### PTH, SPE ####[place] [address] Platelet 165 10 3/mcL Normal 130-400 [facility] ([place]) Comment on above: Performed By: #### U JENNIFER, FERR, CBC, FES, ANEU, RFP, ADIFF, GFR, VIDH ####[place] [address]#### PTH, SPE ####[place] [address] Platelet mean volume (Bld) [Entitic vol] 9.0 fL Normal 7.4-10.4 [facility] ([place]) Comment on above: Performed By: #### U JENNIFER, FERR, CBC, FES, ANEU, RFP, ADIFF, GFR, VIDH ####[place] [address]#### PTH, SPE ####[place] [address] RBC 3.85 10 6/mcL Low 4.04-6.13 [facility] ([place]) Comment on above: Performed By: #### U JENNIFER, FERR, CBC, FES, ANEU, RFP, ADIFF, GFR, VIDH ####[place] [address]#### PTH, SPE ####[place] [address] WBC 14.5 10 3/mcL High 4.6-10.8 [facility] ([place]) Comment on above: Performed By: #### U JENNIFER, FERR, CBC, FES, ANEU, RFP, ADIFF, GFR, VIDH ####[place] [address]#### PTH, SPE ####[place] [address] Jerica 02-20-2023 Ferritin [Mass/Vol] 27.0 ng/mL Normal 26.0-388.0 [facility] ([place]) Comment on above: Performed By: #### U JENNIFER, FERR, CBC, FES, ANEU, RFP, ADIFF, GFR, VIDH ####[place] [address]#### PTH, SPE ####[place] [address] FESon 02-20-2023 Iron [Mass/Vol] 60 ug/dL Low 65-175 [facility] ([place]) Comment on above: Performed By: #### U JENNIFER, FERR, CBC, FES, ANEU, RFP, ADIFF, GFR, VIDH ####[place] [address]#### PTH, SPE ####[place] [address] Iron Sat 17 % Normal [facility] ([place]) Comment on above: Performed By: #### U JENNIFER, FERR, CBC, FES, ANEU, RFP, ADIFF, GFR, VIDH ####[place] [address]#### PTH, SPE ####[place] [address] TIBC 349 mcg/dL Normal 250-450 [facility] ([place]) Comment on above: Performed By: #### U JENNIFER, FERR, CBC, FES, ANEU, RFP, ADIFF, GFR, VIDH ####[place] [address]#### PTH, SPE ####[place] [address] LABORATORYOrdered By: SYSTEM SYSTEM on 02-20-2023 25-hydroxyvitamin D3 [Mass/Vol] 47.5 ng/mL Invalid Interpretation Code AO ADM SS Comment on above: Interpretive Data: I nterpretive Values Based on Total 25(OH) Vitamin D: Deficient <20 ng/mL Insufficient 20 - <30 ng/mL Sufficient 30-100 ng/mL Albumin BCP dye [Mass/Vol] 3.6 G/dL Normal 3.4 - 4.8 G/dL AO ADM SS Basophil, Absolute 0.0 103/mcL Normal 0.0 - 0.2 10^3/mcL AO Workflow SS Basophils/100 WBC (Bld) 0.3 % Normal 0.0 - 2.5 % AO Workflow SS Calcium [Mass/Vol] 10.5 mg/dL High 8.4 - 10. 2 mg/dL AO ADM SS Chloride [Moles/Vol] 103 mmol/L Normal 98 - 10 7 mmol/L AO ADM SS CO2 [Moles/Vol] 27 mmol/L Normal 23 - 31 mmol/L AO ADM SS Creatinine [Mass/Vol] 2.70 mg/dL High 0.70 - 1.30 mg/dL AO ADM SS Electrolyte Balance 6.0 mEq/L Normal 4.0 - 15 .0 mEq/L AO ADM SS Eosinophil, Absolute 0.2 103/mcL Normal 0.0 - 0 .4 10^3/mcL AO Workflow SS Eosinophils/100 WBC (Bld) 1.7 % Normal 0.0 - 7.0 % AO Workflow SS Erythrocyte distribution width (RBC) [Ratio] 17.0 % High 11.5 - 14.5 % AO Workflow SS Ferritin [Mass/Vol] 27.0 ng/mL Normal 26.0 - 388.0 ng/mL AO ADM SS GFR/1.73 sq M.predicted among blacks MDRD (S/P/Bld) [Vol rate/Area] 27 ml/min/1.73sqm Invalid Interpretation Code AO Chemistry S Comment on above: Interpretive Data: GFR Population mean for , Non- Americans Ages 20-29 = 116 mL/min/1.73 sq.m. Ages 30-39 = 107 mL/min/1.73 sq.m. Ages 40-49 = 99 mL/min/1.73 sq.m. Ages 50-59 = 93 mL/min/1.73 sq.m. Ages 60-69 = 85 mL/min/1.73 sq.m. Ages 70+ = 75 mL/min/1.73 sq.m. Chronic Kidney Disease: Less than 60 mL/min/1.73 square meters End Stage Renal Disease: Less than 15 mL/min/1.73 square meters GFR/1.73 sq M.predicted among non-blacks MDRD (S/P/Bld) [Vol rate/Area] 23 ml/min/1.73sqm Invalid Interpretation Code AO Chemistry S Comment on above: Interpretive Data: GFR Population mean for , Non- Americans Ages 20-29 = 116 mL/min/1.73 sq.m. Ages 30-39 = 107 mL/min/1.73 sq.m. Ages 40-49 = 99 mL/min/1.73 sq.m. Ages 50-59 = 93 mL/min/1.73 sq.m. Ages 60-69 = 85 mL/min/1.73 sq.m. Ages 70+ = 75 mL/min/1.73 sq.m. Chronic Kidney Disease: Less than 60 mL/min/1.73 square meters End Stage Renal Disease: Less than 15 mL/min/1.73 square meters Glucose [Mass/Vol] 187 mg/dL High 83 - 110 mg/dL AO ADM SS Hematocrit (Bld) [Volume fraction] 31.5 % Low 42.0 - 52.0 % AO Workflow SS Hemoglobin (Bld) [Mass/Vol] 10.2 G/dL Low 14.0 - 18.0 G/dL AO Workflow SS Iron [Mass/Vol] 60 ug/dL Low 65 - 175 mcg/dL AO ADM SS Iron binding capacity [Mass/Vol] 349 mcg/dL Normal 250 - 450 mcg/dL AO ADM SS Iron Sat 17 % Invalid Interpretation Code AO ADM SS Lymphocyte, Absolute 2.6 103/mcL Normal 0.8 - 3 .9 10^3/mcL AO Workflow SS Lymphocytes/100 WBC (Bld) 17.8 % Normal 10.0 - 50.0 % AO Workflow SS MCH (RBC) [Entitic mass] 26.5 pg Low 27. 0 - 31.2 pg AO Workflow SS MCHC 32.4 G/dL Normal 31.8 - 35.4 G/dL AO Workflow SS MCV (RBC) [Entitic vol] 81.9 fL Normal 80.0 - 94.0 fL AO Workflow SS Monocyte, Absolute 0.9 103/mcL Normal 0.2 - 1.0 10^3/mcL AO Workflow SS Monocytes/100 WBC (Bld) 6.0 % Normal 1.7 - 13.0 % AO Workflow SS Neutrophil, Absolute 10.8 103/mcL High 2.9 - 6 .2 10^3/mcL AO Workflow SS Neutrophils/100 WBC (Bld) 74.2 % Normal 37.0 - 80.0 % AO Workflow SS Parathyrin.intact [Mass/Vol] 55.0 pg/mL Normal 18.5 - 88.0 pg/mL AH ADM SS Phosphate [Mass/Vol] 4.3 mg/dL High 2.3 - 4 .1 mg/dL AO ADM SS Platelet mean volume (Bld) [Entitic vol] 9.0 fL Normal 7.4 - 10.4 fL AO Workflow SS Platelets (Bld) [#/Vol] 165 103/mcL Normal 130 - 400 10^3/mcL AO Workflow SS Potassium [Moles/Vol] 3.9 mmol/L Normal 3.5 - 5.1 mmol/L AO ADM SS RBC (Bld) [#/Vol] 3.85 106/mcL Low 4.04 - 6.1 3 10^6/mcL AO Workflow SS Sodium [Moles/Vol] 136 mmol/L Normal 136 - 145 mmol/L AO ADM SS Urea nitrogen [Mass/Vol] 105 mg/dL High 7 - 18 mg/dL AO ADM SS Urea nitrogen/Creatinine [Mass ratio] 39 ratio High 7 - 27 ratio AO ADM SS Uric Acid Lvl 10.9 mg/dL High 3.5 - 7.2 mg/dL AO ADM SS WBC (Bld) [#/Vol] 14.5 103/mcL High 4.6 - 10.8 10^3/mcL AO Workflow SS LABORATORYOrdered By: Lupe Bailey on 02-20-2023 Protein [Mass/Vol] 7.0 G/dL Normal 5.7 - 8.2 G/dL AH ADM SS Comment on above: Interpretive Data: * *Note - New Reference Range in effect 19 PTHon 02-20-2023 PTH, Intact 55.0 pg/mL Normal 18.5-88.0 [facility] ([place]) Comment on above: Performed By: #### U JENNIFER, FERR, CBC, FES, ANEU, RFP, ADIFF, GFR, VIDH ####[address] [place], [place] [address]#### PTH, SPE ####[address] [address] RFPon 02-20-2023 Albumin Level 3.6 G/dL Normal 3.4-4.8 [facility] ([place]) Comment on above: Performed By: #### U JENNIFER, FERR, CBC, FES, ANEU, RFP, ADIFF, GFR, VIDH ####[place] [address]#### PTH, SPE ####[address] [address] BUN/Creatinine Ratio 39 ratio High 7-27 [facility] ([place]) Comment on above: Performed By: #### U JENNIFER, FERR, CBC, FES, ANEU, RFP, ADIFF, GFR, VIDH ####[place] [address]#### PTH, SPE ####[address] [address] Calcium [Mass/Vol] 10.5 mg/dL High 8.4-10.2 [facility] ([place]) Comment on above: Performed By: #### U JENNIFER, FERR, CBC, FES, ANEU, RFP, ADIFF, GFR, VIDH ####[place] [address]#### PTH, SPE ####[address] [address] Chloride [Moles/Vol] 103 mmol/L Normal 98-107 [facility] ([place]) Comment on above: Performed By: #### U JENNIFER, FERR, CBC, FES, ANEU, RFP, ADIFF, GFR, VIDH ####[place] [address]#### PTH, SPE ####[place] [address] CO2 [Moles/Vol] 27 mmol/L Normal 23-31 [facility] ([place]) Comment on above: Performed By: #### U JENNIFER, FERR, CBC, FES, ANEU, RFP, ADIFF, GFR, VIDH ####[place] [address]#### PTH, SPE ####[address] [address] Creatinine [Mass/Vol] 2.70 mg/dL High 0.70-1.30 [facility] ([place]) Comment on above: Performed By: #### U JENNIFER, FERR, CBC, FES, ANEU, RFP, ADIFF, GFR, VIDH ####[address] [address]#### PTH, SPE ####[address] [address] Electrolyte Balance 6.0 mEq/L Normal 4.0-15.0 [facility] ([place]) Comment on above: Performed By: #### U JENNIFER, FERR, CBC, FES, ANEU, RFP, ADIFF, GFR, VIDH ####[place] [address]#### PTH, SPE ####[address] [address] Glucose [Mass/Vol] 187 mg/dL High 83-110 [facility] ([place]) Comment on above: Performed By: #### U JENNIFER, FERR, CBC, FES, ANEU, RFP, ADIFF, GFR, VIDH ####[place] [address]#### PTH, SPE ####[address] [address] Phosphate [Mass/Vol] 4.3 mg/dL High 2.3-4.1 [facility] ([place]) Comment on above: Performed By: #### U JENNIFER, FERR, CBC, FES, ANEU, RFP, ADIFF, GFR, VIDH ####[place] [address]#### PTH, SPE ####[address] [address] Potassium [Moles/Vol] 3.9 mmol/L Normal 3.5-5.1 [facility] ([place]) Comment on above: Performed By: #### U JENNIFER, FERR, CBC, FES, ANEU, RFP, ADIFF, GFR, VIDH ####[place] [address]#### PTH, SPE ####[place] [address] Sodium [Moles/Vol] 136 mmol/L Normal 136-145 [facility] ([place]) Comment on above: Performed By: #### U JENNIFER, FERR, CBC, FES, ANEU, RFP, ADIFF, GFR, VIDH ####[place] [address]#### PTH, SPE ####[place] [address] Urea nitrogen [Mass/Vol] 105 mg/dL High 7-18 [facility] ([place]) Comment on above: Performed By: #### U JENNIFER, FERR, CBC, FES, ANEU, RFP, ADIFF, GFR, VIDH ####[place] [address]#### PTH, SPE ####[place] [address] SPEon 02-20-2023 Total Protein 7.0 G/dL Normal 5.7-8.2 [facility] ([place]) Comment on above: Result Comment: No te - New Reference Range in effect 19 Performed By: #### U JENNIFER, FERR, CBC, FES, ANEU, RFP, ADIFF, GFR, VIDH ####[place] [address]#### PTH, SPE ####[place] [address] URICon 02-20-2023 Uric Acid Lvl 10.9 mg/dL High 3.5-7.2 [facility] ([place]) Comment on above: Performed By: #### U JENNIFER, FERR, CBC, FES, ANEU, RFP, ADIFF, GFR, VIDH ####[place] [address]#### PTH, SPE ####[place] [address] VIDHon 02-20-2023 Vit. D 25-Hydroxy 47.5 ng/mL Normal [facility] ([place]) Comment on above: Result Comment: Inte rpretive Values Based on Total 25(OH) Vitamin D:Deficient <20 ng/mLInsufficient 20 - <30 ng/mLSufficient 30-100 ng/mL Performed By: #### U JENNIFER, FERR, CBC, FES, ANEU, RFP, ADIFF, GFR, VIDH ####[address] [place], [place] [address]#### PTH, SPE ####[address] [place] [address] Absolute lymphocyte countOrd ered By: Anthony Sosa on 02-15-2023 Lymphocytes Auto (Unsp spec) [#/Vol] 0.88 10*3/uL 0.83-4.51 [facility] Basophil percentageOrdered B y: Anthony Sosa on 02-15-2023 Basophils/100 WBC (Bld) 0.1 % 0-1 [facility] Eosinophils/100 WBC (Bld) 0.2 % 0-5 [facility] Neutrophils (Bld) [#/Vol] 7.7 10*3/uL 2.0-7.7 [facility] Neutrophils/100 WBC (Bld) 83.7 % 47-70 [facility] WBC (Bld) [#/Vol] 9.2 10*3/uL 4.4-11.0 [facility] Blood erythrocytes count (nu mber/volume)Ordered By: Anthony Sosa on 02-15-2023 RBC (Bld) [#/Vol] 2.97 10*6/uL 4.6-6.2 [facility] Blood hemoglobin measurement (mass/volume)Ordered By: Anthony Sosa on 02-15-2023 Hemoglobin (Bld) [Mass/Vol] 7.9 g/dL 13.0-16.5 [facility] Blood lymphocytes/100 leukoc ytesOrdered By: Anthony Sosa on 02-15-2023 Lymphocytes/100 WBC (Bld) 9.6 % 19-41 [facility] Blood monocytes/100 leukocyt esOrdered By: Anthony Sosa on 02-15-2023 Monocytes/100 WBC (Bld) 6.2 % 0-10 [facility] Blood platelet mean volumeOr dered By: Anthony Sosa on 02-15-2023 Platelet mean volume (Bld) [Entitic vol] 11.6 fL 6.2-12.0 [facility] Determination of erythrocyte mean corpuscular volume (MCV)Ordered By: Anthony Sosa on 02-15-2023 MCV (RBC) [Entitic vol] 87.2 fL 80-94 [facility] Glucose Glucometer (BldC) [M ass/Vol]Ordered By: Anthony Sosa on 02-15-2023 Glucose [Mass/Vol] 151 mg/dL 74-106 [facility] Comment on above: MANAGEMENT OF PATIEN T CARE PER NURSING PROTOCOL Hematocrit Auto (Bld) [Volum e fraction]Ordered By: Anthony Sosa on 02-15-2023 Hematocrit (Bld) [Volume fraction] 25.9 % 40-54 [facility] Iron measurement (mass/mass) Ordered By: Anthony Sosa on 02-15-2023 Iron (Unsp spec) [Mass/Mass] 105 ug/dL 65-175 [facility] Laboratory - Hematology and Cell countsOrdered By: Anthony Sosa on 02-15-2023 Erythrocyte distribution width (RBC) [Entitic vol] 46.3 fL 35.1-43.9 [facility] Erythrocyte distribution width (RBC) [Ratio] 14.6 % 11.6-14.6 [facility] Immature granulocytes/100 WBC (Bld) 0.200 % 0.0-0.9 [facility] Comment on above: IG% - Immature Granu locytes (promyelocytes, myelocytes and metamyelocytes) > 1% indicates that a LEFT SHIFT is Present. MCH (RBC) [Entitic mass] 26.6 pg 27.0-32.0 [facility] Nucleated RBC/100 WBC (Bld) [Ratio] 0 % 0-5 [facility] MCHC Auto (RBC) [Mass/Vol]Or dered By: Anthony Sosa on 02-15-2023 MCHC (RBC) [Mass/Vol] 30.5 g/dL 32-36 [facility] No Panel InformationOrdered By: Anthony Sosa on 02-15-2023 Total Iron Binding Capacity 315 ug/dL 250-450 [facility] Platelets bldOrdered By: Nimco Sosa on 02-15-2023 Platelets (Bld) [#/Vol] 128 10*3/uL 150-450 [facility] Serum or plasma ferritin latricia surement (mass/volume)Ordered By: Anthony Sosa on 02-15-2023 Ferritin [Mass/Vol] 15 ng/mL 26-388 [facility] Serum or plasma iron saturat ion measurement (mass fraction)Ordered By: Anthony Sosa on 02-15-2023 Iron saturation [Mass fraction] 33.3 % 15.0-55.0 [facility] Basophil percentageOrdered B y: Erika Amin on 02-14-2023 Basophil percentage 3.5 mg/dL 2.5-4.9 [facility] Bilirubin [Mass/Vol] 0.40 mg/dL 0.20-1.00 [facility] Comment on above: For patients on eltr ombopag therapy, use of Dimension [place] TBIL is not recommended. Chloride [Moles/Vol] 110 mmol/L 98-107 [facility] Glucose [Mass/Vol] 290 mg/dL 74-106 [facility] Comment on above: Glucose result great er than or equal to 200 mg/dLsuggests DIABETES MELLITUS per A.D.A. criteria. Lactate [Moles/Vol] 1.4 mmol/L 0.4-2.0 [facility] Potassium [Moles/Vol] 4.9 mmol/L 3.5-5.1 [facility] Protein [Mass/Vol] 6.2 g/dL 6.4-8.2 [facility] Sodium [Moles/Vol] 142 mmol/L 136-145 [facility] Blood manual differential co mment interpretation (narrative result)Ordered By: Erika Amin on 02-14-2023 Manual differential comment Ric (Bld) [Interp] SCANNED [facility] Comment on above: LYMPHOPENIA NOTED Laboratory - Chemistry and C hemistry - challengeOrdered By: Erika Amin on 02-14-2023 ALP [Catalytic activity/Vol] 55 U/L 45-117 [facility] ALT [Catalytic activity/Vol] 30 U/L 16-61 [facility] CO2 [Moles/Vol] 27.0 mmol/L 21.0-32.0 [facility] Globulin (S) [Mass/Vol] 3.4 g/dL 2.2-4.2 [facility] Magnesium [Mass/Vol] 2.0 mg/dL 1.6-2.6 [facility] Urea nitrogen/Creatinine [Mass ratio] 33.8 mg/mg 10-20 [facility] Laboratory - CoagulationOrde red By: Erika Amin on 02-14-2023 aPTT Coag (Bld) [Time] 246.2 s 24.1-36.2 [facility] Comment on above: CRITICAL VALUE VERIF IED. CALLED TO ICU [id number]/06/23 0736 Eli Ellis.RESULTS READ BACK BY SAME . No Panel InformationOrdered By: Erika Amin on 02-14-2023 Estimated Creatinine Clearance Calc 15.96 ml/min [facility] Estimated GFR (MDRD) Amer 25 mL/min >60 [facility] Comment on above: GFR Calc Estimated GFR (MDRD) Non-Af Amer 21 mL/min >60 [facility] Comment on above: Non- GFR Calc Thyroid Stimulating Hormone (TSH) 1.06 uIU/mL 0.358-3.74 [facility] D-Dimer Quantitative (PE/DVT) 0.55 FEU/ug/m 0.27-0.49 [facility] Comment on above: D-Dimer ELEVATED (>0 .49): Additional studies and clinicalassessments are indicated to conclude diagnosis of:Deep Vein Thrombosis (DVT) or Pulmonary Embolism (PE)CRITICAL VALUE VERIFIED. CALLED TO Maddie KOO RN ICU02/14/23 0046 Vitaliy Sharma.RESULTS READ BACK BY SAME. Serum or plasma albumin elmira urement (mass/volume)Ordered By: Erika Amin on 02-14-2023 Albumin [Mass/Vol] 2.8 g/dL 3.2-5.0 [facility] Serum or plasma albumin/glob ulin mass ratioOrdered By: rEika Amin on 02-14-2023 Albumin/Globulin [Mass ratio] 0.8 {ratio} 0.9-2.4 [facility] Serum or plasma calcium elmira urement (mass/volume)Ordered By: Erika Amin on 02-14-2023 Calcium [Mass/Vol] 8.1 mg/dL 8.5-10.1 [facility] Serum or plasma creatinine m easurement (mass/volume)Ordered By: Erika Amin on 02-14-2023 Creatinine [Mass/Vol] 3.05 mg/dL 0.70-1.30 [facility] Comment on above: The validity of the calculated GFR & GFRAA in patients over 70 years has not been determined. Clinical correlation is essential. Serum or plasma urea nitroge n measurement (mass/volume)Ordered By: Erika Amin on 02-14-2023 Urea nitrogen [Mass/Vol] 103 mg/dL 7-18 [facility] Comment on above: Critical Result(s) C alled at: 05:42:36 02/14/2023 by: VITALIY Avila RN ICU. Results read back by same. Thin prep Papanicolaou smear with manual screeningOrdered By: Erika Amin on 02-14-2023 Thin prep Papanicolaou smear with manual screening 11 U/L 15-37 [facility] Thin prep Papanicolaou smear with manual screening 5 5-15 [facility] Absolute lymphocyte countOrd ered By: Jr Thomas on 02-13-2023 Lymphocytes Auto (Unsp spec) [#/Vol] 1.03 10*3/uL 0.83-4.51 [facility] Basophil percentageOrdered B y: rJ Thomas on 02-13-2023 Basophil percentage 0 SEEN /hpf 0-5 [facility] Basophils/100 WBC (Bld) 0.1 % 0-1 [facility] Chloride [Moles/Vol] 108 mmol/L 98-107 [facility] Eosinophils/100 WBC (Bld) 3.2 % 0-5 [facility] Glucose [Mass/Vol] 258 mg/dL 74-106 [facility] Comment on above: Glucose result great er than or equal to 200 mg/dLsuggests DIABETES MELLITUS per A.D.A. criteria. Neutrophils (Bld) [#/Vol] 17.2 10*3/uL 2.0-7.7 [facility] Neutrophils/100 WBC (Bld) 83.1 % 47-70 [facility] Potassium [Moles/Vol] 4.0 mmol/L 3.5-5.1 [facility] Sodium [Moles/Vol] 143 mmol/L 136-145 [facility] WBC (Bld) [#/Vol] 20.7 10*3/uL 4.4-11.0 [facility] Bilirubin Test strip Ql (U)O rdered By: Jr Thomas on 02-13-2023 Bilirubin Ql (U) Negative Negative [facility] Blood erythrocytes count (nu mber/volume)Ordered By: Jr Thomas on 02-13-2023 RBC (Bld) [#/Vol] 3.48 10*6/uL 4.6-6.2 [facility] Blood hemoglobin measurement (mass/volume)Ordered By: Jr Thomas on 02-13-2023 Hemoglobin (Bld) [Mass/Vol] 9.3 g/dL 13.0-16.5 [facility] Blood lymphocytes/100 leukoc ytesOrdered By: Jr Thomas on 02-13-2023 Lymphocytes/100 WBC (Bld) 5.0 % 19-41 [facility] Blood manual differential co mment interpretation (narrative result)Ordered By: Jr Thomas on 02-13-2023 Manual differential comment Ric (Bld) [Interp] SCANNED [facility] Comment on above: AUTO DIFF [place] Blood monocytes/100 leukocyt esOrdered By: Jr Thomas on 02-13-2023 Monocytes/100 WBC (Bld) 8.3 % 0-10 [facility] Blood platelet mean volumeOr dered By: Jr Thomas on 02-13-2023 Platelet mean volume (Bld) [Entitic vol] 10.9 fL 6.2-12.0 [facility] Determination of erythrocyte mean corpuscular volume (MCV)Ordered By: Jr Thomas on 02-13-2023 MCV (RBC) [Entitic vol] 87.4 fL 80-94 [facility] Hematocrit Auto (Bld) [Volum e fraction]Ordered By: Jr Thomas on 02-13-2023 Hematocrit (Bld) [Volume fraction] 30.4 % 40-54 [facility] Ketones Test strip Ql (U)Ord ered By: Jr Thomas on 02-13-2023 Ketones Ql (U) Negative Negative [facility] Laboratory - Chemistry and C hemistry - challengeOrdered By: Jr Thomas on 02-13-2023 CO2 [Moles/Vol] 29.0 mmol/L 21.0-32.0 [facility] Natriuretic peptide B (Bld) [Mass/Vol] 43.2 pg/mL 0-100 [facility] Urea nitrogen/Creatinine [Mass ratio] 32.2 mg/mg 10-20 [facility] Laboratory - Hematology and Cell countsOrdered By: Jr Thomas on 02-13-2023 Erythrocyte distribution width (RBC) [Entitic vol] 47.8 fL 35.1-43.9 [facility] Erythrocyte distribution width (RBC) [Ratio] 15.0 % 11.6-14.6 [facility] Immature granulocytes/100 WBC (Bld) 0.300 % 0.0-0.9 [facility] Comment on above: IG% - Immature Granu locytes (promyelocytes, myelocytes and metamyelocytes) > 1% indicates that a LEFT SHIFT is Present. MCH (RBC) [Entitic mass] 26.7 pg 27.0-32.0 [facility] Nucleated RBC/100 WBC (Bld) [Ratio] 0 % 0-5 [facility] Laboratory - Microbiology an d Antimicrobial susceptibilityOrdered By: Jr Thomas on 02-13-2023 Bacteria identified Cx Nom (Bld) No growth in 5 days. [facility] Bacteria identified Cx Nom (Bld) Staphylococcus epidermidis [facility] MCHC Auto (RBC) [Mass/Vol]Or dered By: Jr Thomas on 02-13-2023 MCHC (RBC) [Mass/Vol] 30.6 g/dL 32-36 [facility] Mucus LM Ql (Urine sed)Order ed By: Jr Thomas on 02-13-2023 Mucus Ql (Urine sed) 0 SEEN /hpf [facility] Nitrite Test strip Ql (U)Ord ered By: Jr Thomas on 02-13-2023 Nitrite Ql (U) Negative Negative [facility] No Panel InformationOrdered By: Jr Thomas on 02-13-2023 Bacteria Detection (PCR) Staphylococcus epidermidis [facility] Estimated Creatinine Clearance Calc 16.18 ml/min [facility] Estimated GFR (MDRD) Amer 26 mL/min >60 [facility] Comment on above: GFR Calc Estimated GFR (MDRD) Non-Af Amer 21 mL/min >60 [facility] Comment on above: Non- GFR Calc Troponin I High Sensitivity 46 pg/mL 3.0-78.0 [facility] Comment on above: Please Note: New Arti t Units and Gender Specific Reference Ranges. For more information see Policy Stat Procedure [place] High Sensitivity Troponin (TNIH) and attachments. Platelets bldOrdered By: Stan Thomas on 02-13-2023 Platelets (Bld) [#/Vol] 207 10*3/uL 150-450 [facility] Protein Test strip Ql (U)Ord ered By: Jr Thomas on 02-13-2023 Protein Ql (U) 30 mg/dl Negative [facility] Review by pathologistOrdered By: Jr Thomas on 02-13-2023 Pathologist review Ric (Unsp spec) [Interp] Elidia orr [facility] Pathologist review Ric (Unsp spec) [Interp] Reviewed [facility] Comment on above: Previous reported re sult: Elidia orr Edited by: OSCAR on 02/15/23:1121Neutrophilic leukocytosis.Normocytic anemia.Clinical correlation necessary.Daniel Romero M.D. 02/15/23 AMENDED REPORT 02/15/23 1121 PATH REV previously reported as: Elidia orr Serum or plasma calcium elimra urement (mass/volume)Ordered By: Jr Thomas on 02-13-2023 Calcium [Mass/Vol] 9.6 mg/dL 8.5-10.1 [facility] Serum or plasma creatinine m easurement (mass/volume)Ordered By: Jr Thomas on 02-13-2023 Creatinine [Mass/Vol] 3.01 mg/dL 0.70-1.30 [facility] Comment on above: The validity of the calculated GFR & GFRAA in patients over 70 years has not been determined. Clinical correlation is essential. Serum or plasma urea nitroge n measurement (mass/volume)Ordered By: Jr Thomas on 02-13-2023 Urea nitrogen [Mass/Vol] 97 mg/dL 7-18 [facility] Squamous epithelial cells de tection in urine sediment by light microscopyOrdered By: Jr Thomas on 02-13-2023 Epithelial cells.squamous LM Ql (Urine sed) 0 SEEN /hpf 0-5 [facility] Thin prep Papanicolaou smear with manual screeningOrdered By: Jr Thomas on 02-13-2023 Thin prep Papanicolaou smear with manual screening 6 5-15 [facility] Urine blood detectionOrdered By: Jr Thomas on 02-13-2023 RBC Ql (U) 10 /ul Negative [facility] RBC Ql (U) 0 SEEN /hpf 0-5 [facility] Urine clarityOrdered By: Stan Thomas on 02-13-2023 Clarity (U) Clear Clear [facility] Urine color determinationOrd ered By: Jr Thomas on 02-13-2023 Color (U) Yellow Yellow [facility] Urine glucose detectionOrder ed By: Jr Thomas on 02-13-2023 Glucose Ql (U) 1000 mg/dl Normal [facility] Urine leukocyte esterase det ection by dipstickOrdered By: Jr Thomas on 02-13-2023 Leukocyte esterase Test strip Ql (U) Negative Negative [facility] Urine pHOrdered By: Jr moreira on 02-13-2023 pH (U) 5.0 [pH] 5.0 - 8.0 [facility] Urine sediment bacteria coun t by microscopy (number/high power field)Ordered By: Jr Thomas on 02-13-2023 Bacteria LM.HPF (Urine sed) [#/Area] 0 /[HPF] None Seen [facility] Urine specific gravity measu rementOrdered By: Jr Thomas on 02-13-2023 Specific gravity (U) [Rel density] 1.015 1.002-1.030 [facility] Urobilinogen Auto test strip Ql (U)Ordered By: Jr Thomas on 02-13-2023 Urobilinogen Ql (U) Normal mg/dl Normal [facility] Absolute lymphocyte countOrd ered By: Dustyjonathan Yan on 02-08-2023 Lymphocytes Auto (Unsp spec) [#/Vol] 1.00 10*3/uL 0.83-4.51 [facility] Basophil percentageOrdered B y: Dusty Yan on 02-08-2023 Basophils/100 WBC (Bld) 0.4 % 0-1 [facility] Chloride [Moles/Vol] 108 mmol/L 98-107 [facility] Eosinophils/100 WBC (Bld) 5.7 % 0-5 [facility] Glucose [Mass/Vol] 120 mg/dL 74-106 [facility] Comment on above: Fasting Glucose resu lt from 100 to 125 mg/dL suggests IMPAIRED HOMEOSTASIS per A.D.A. criteria. Neutrophils (Bld) [#/Vol] 3.1 10*3/uL 2.0-7.7 [facility] Neutrophils/100 WBC (Bld) 65.4 % 47-70 [facility] Potassium [Moles/Vol] 4.8 mmol/L 3.5-5.1 [facility] Sodium [Moles/Vol] 143 mmol/L 136-145 [facility] WBC (Bld) [#/Vol] 4.7 10*3/uL 4.4-11.0 [facility] Blood erythrocytes count (nu mber/volume)Ordered By: Dusty Yan on 02-08-2023 RBC (Bld) [#/Vol] 2.79 10*6/uL 4.6-6.2 [facility] Blood hemoglobin measurement (mass/volume)Ordered By: Dusty Yan on 02-08-2023 Hemoglobin (Bld) [Mass/Vol] 7.3 g/dL 13.0-16.5 [facility] Blood lymphocytes/100 leukoc ytesOrdered By: Dusty Yan on 02-08-2023 Lymphocytes/100 WBC (Bld) 21.1 % 19-41 [facility] Blood monocytes/100 leukocyt esOrdered By: Dusty Yan on 02-08-2023 Monocytes/100 WBC (Bld) 7.2 % 0-10 [facility] Blood platelet mean volumeOr dered By: Dusty Yan on 02-08-2023 Platelet mean volume (Bld) [Entitic vol] 10.7 fL 6.2-12.0 [facility] Determination of erythrocyte mean corpuscular volume (MCV)Ordered By: Dusty Yan on 02-08-2023 MCV (RBC) [Entitic vol] 86.4 fL 80-94 [facility] Hematocrit Auto (Bld) [Volum e fraction]Ordered By: Dusty Yan on 02-08-2023 Hematocrit (Bld) [Volume fraction] 24.1 % 40-54 [facility] Laboratory - Chemistry and C hemistry - challengeOrdered By: Dusty Yan on 02-08-2023 CO2 [Moles/Vol] 31.0 mmol/L 21.0-32.0 [facility] Urea nitrogen/Creatinine [Mass ratio] 33.7 mg/mg 10-20 [facility] Laboratory - Hematology and Cell countsOrdered By: Dusty Yan on 02-08-2023 Erythrocyte distribution width (RBC) [Entitic vol] 46.3 fL 35.1-43.9 [facility] Erythrocyte distribution width (RBC) [Ratio] 14.9 % 11.6-14.6 [facility] Immature granulocytes/100 WBC (Bld) 0.200 % 0.0-0.9 [facility] Comment on above: IG% - Immature Granu locytes (promyelocytes, myelocytes and metamyelocytes) > 1% indicates that a LEFT SHIFT is Present. MCH (RBC) [Entitic mass] 26.2 pg 27.0-32.0 [facility] Nucleated RBC/100 WBC (Bld) [Ratio] 0 % 0-5 [facility] MCHC Auto (RBC) [Mass/Vol]Or dered By: Dusty Yan on 02-08-2023 MCHC (RBC) [Mass/Vol] 30.3 g/dL 32-36 [facility] No Panel InformationOrdered By: Dusty Yan on 02-08-2023 Estimated Creatinine Clearance Calc 16.91 ml/min [facility] Estimated GFR (MDRD) Amer 27 mL/min >60 [facility] Comment on above: GFR Calc Estimated GFR (MDRD) Non-Af Amer 22 mL/min >60 [facility] Comment on above: Non- GFR Calc Platelets bldOrdered By: Dusty Yan on 02-08-2023 Platelets (Bld) [#/Vol] 120 10*3/uL 150-450 [facility] Serum or plasma calcium elmira urement (mass/volume)Ordered By: Dusty Yan on 02-08-2023 Calcium [Mass/Vol] 9.3 mg/dL 8.5-10.1 [facility] Serum or plasma creatinine m easurement (mass/volume)Ordered By: Dusty Yan on 02-08-2023 Creatinine [Mass/Vol] 2.88 mg/dL 0.70-1.30 [facility] Comment on above: The validity of the calculated GFR & GFRAA in patients over 70 years has not been determined. Clinical correlation is essential. Serum or plasma urea nitroge n measurement (mass/volume)Ordered By: Dusty Yan on 02-08-2023 Urea nitrogen [Mass/Vol] 97 mg/dL 7-18 [facility] Thin prep Papanicolaou smear with manual screeningOrdered By: Dusty Yan on 02-08-2023 Thin prep Papanicolaou smear with manual screening 4 -15 [facility] .Auto Diffon 02-07-2023 Basophil, Absolute 0.0 10 3/mcL Normal 0.0-0.2 [facility] ([place]) Comment on above: Performed By: #### G FR, CBC, ANEU, ADIFF, BMP ####[address] [place], [place] [address] Basophils/100 WBC (Bld) 0.8 % Normal 0.0-2.5 [facility] ([place]) Comment on above: Performed By: #### G FR, CBC, ANEU, ADIFF, BMP ####[address] [place], [place] [address] Eosinophil, Absolute 0.3 10 3/mcL Normal 0.0-0.4 [facility] ([place]) Comment on above: Performed By: #### G FR, CBC, ANEU, ADIFF, BMP ####[address] [place], [place] [address] Eosinophils/100 WBC (Bld) 4.0 % Normal 0.0-7.0 [facility] ([place]) Comment on above: Performed By: #### G FR, CBC, ANEU, ADIFF, BMP ####[address] [place], [place] [address] Lymphocyte, Absolute 1.2 10 3/mcL Normal 0.8-3.9 [facility] ([place]) Comment on above: Performed By: #### G FR, CBC, ANEU, ADIFF, BMP ####[address] [place], [place] [address] Lymphocytes/100 WBC (Bld) 18.5 % Normal 10.0-50.0 [facility] ([place]) Comment on above: Performed By: #### G FR, CBC, ANEU, ADIFF, BMP ####[address] [place], [place] [address] Monocyte, Absolute 0.4 10 3/mcL Normal 0.2-1.0 [facility] ([place]) Comment on above: Performed By: #### G FR, CBC, ANEU, ADIFF, BMP ####[address] [place], [place] [address] Monocytes/100 WBC (Bld) 6.3 % Normal 1.7-13.0 [facility] ([place]) Comment on above: Performed By: #### G FR, CBC, ANEU, ADIFF, BMP ####[address] [place], [place] [address] Neutrophils/100 WBC (Bld) 70.4 % Normal 37.0-80.0 [facility] ([place]) Comment on above: Performed By: #### G FR, CBC, ANEU, ADIFF, BMP ####[address] [place], [place] [address] .GFRon 02-07-2023 GFR 27 ml/min/1.73sqm Normal [facility] ([place]) Comment on above: Result Comment: GFR Population mean for , Non- Americans Ages 20-29 = 116 mL/min/1.73 sq.m. Ages 30-39 = 107 mL/min/1.73 sq.m. Ages 40-49 = 99 mL/min/1.73 sq.m. Ages 50-59 = 93 mL/min/1.73 sq.m. Ages 60-69 = 85 mL/min/1.73 sq.m. Ages 70+ = 75 mL/min/1.73 sq.m.Chronic Kidney Disease: Less than 60 mL/min/1.73 square metersEnd Stage Renal Disease: Less than 15 mL/min/1.73 square meters Performed By: #### G FR, CBC, ANEU, ADIFF, BMP ####[address] [place], [place] [address] GFR Non- 22 ml/min/1.73sqm Normal [facility] ([place]) Comment on above: Result Comment: GFR Population mean for , Non- Americans Ages 20-29 = 116 mL/min/1.73 sq.m. Ages 30-39 = 107 mL/min/1.73 sq.m. Ages 40-49 = 99 mL/min/1.73 sq.m. Ages 50-59 = 93 mL/min/1.73 sq.m. Ages 60-69 = 85 mL/min/1.73 sq.m. Ages 70+ = 75 mL/min/1.73 sq.m.Chronic Kidney Disease: Less than 60 mL/min/1.73 square metersEnd Stage Renal Disease: Less than 15 mL/min/1.73 square meters Performed By: #### G FR, CBC, ANEU, ADIFF, BMP ####[address] [place], [place] [address] .NEUABSon 02-07-2023 Neutrophil, Absolute 4.6 10 3/mcL Normal 2.9-6.2 [facility] ([place]) Comment on above: Performed By: #### Jerrell FR, CBC, ANEU, ADIFF, BMP ####[address] [place], [place] [address] BMPon 02-07-2023 BUN/Creatinine Ratio 36 ratio High 7-27 [facility] ([place]) Comment on above: Performed By: #### Jerrell FR, CBC, ANEU, ADIFF, BMP ####[address] [place], [place] [address] Calcium [Mass/Vol] 9.0 mg/dL Normal 8.4-10.2 [facility] ([place]) Comment on above: Performed By: #### Jerrell FR, CBC, ANEU, ADIFF, BMP ####[address] [place], [place] [address] Chloride [Moles/Vol] 106 mmol/L Normal 98-107 [facility] ([place]) Comment on above: Performed By: #### Jerrell FR, CBC, ANEU, ADIFF, BMP ####[address] [place], [place] [address] CO2 [Moles/Vol] 30 mmol/L Normal 23-31 [facility] ([place]) Comment on above: Performed By: #### G FR, CBC, ANEU, ADIFF, BMP ####[address] [place], [place] [address] Creatinine [Mass/Vol] 2.77 mg/dL High 0.70-1.30 [facility] ([place]) Comment on above: Performed By: #### G FR, CBC, ANEU, ADIFF, BMP ####[address] [place], [place] [address] Electrolyte Balance 7.0 mEq/L Normal 4.0-15.0 [facility] ([place]) Comment on above: Performed By: #### G FR, CBC, ANEU, ADIFF, BMP ####[address] [place], [place] [address] Glucose [Mass/Vol] 134 mg/dL High 83-110 [facility] ([place]) Comment on above: Performed By: #### G FR, CBC, ANEU, ADIFF, BMP ####[address] [place], [place] [address] Potassium [Moles/Vol] 5.2 mmol/L High 3.5-5.1 [facility] ([place]) Comment on above: Performed By: #### G FR, CBC, ANEU, ADIFF, BMP ####[address] [place], [place] [address] Sodium [Moles/Vol] 143 mmol/L Normal 136-145 [facility] ([place]) Comment on above: Performed By: #### G FR, CBC, ANEU, ADIFF, BMP ####[address] [place], [place] [address] Urea nitrogen [Mass/Vol] 99 mg/dL High 7-18 [facility] ([place]) Comment on above: Performed By: #### G FR, CBC, ANEU, ADIFF, BMP ####[address] [place], [place] [address] CBCon 02-07-2023 Erythrocyte distribution width (RBC) [Ratio] 15.8 % High 11.5-14.5 [facility] ([place]) Comment on above: Performed By: #### G FR, CBC, ANEU, ADIFF, BMP ####[address] [place], [place] [address] Hematocrit (Bld) [Volume fraction] 24.2 % Low 42.0-52.0 [facility] ([place]) Comment on above: Performed By: #### G FR, CBC, ANEU, ADIFF, BMP ####[address] [place], [place] [address] Hgb 7.8 G/dL Low 14.0-18.0 [facility] ([place]) Comment on above: Performed By: #### Jerrell FR, CBC, ANEU, ADIFF, BMP ####[address] [place], [place] [address] MCH (RBC) [Entitic mass] 26.6 pg Low 27.0-31.2 [facility] ([place]) Comment on above: Performed By: #### G FR, CBC, ANEU, ADIFF, BMP ####[address] [place], [place] [address] MCHC 32.0 G/dL Normal 31.8-35.4 [facility] ([place]) Comment on above: Performed By: #### G FR, CBC, ANEU, ADIFF, BMP ####[address] [place], [place] [address] MCV (RBC) [Entitic vol] 83.0 fL Normal 80.0-94.0 [facility] ([place]) Comment on above: Performed By: #### Jerrell FR, CBC, ANEU, ADIFF, BMP ####[address] [place], [place] [address] Platelet 128 10 3/mcL Low 130-400 [facility] ([place]) Comment on above: Performed By: #### G FR, CBC, ANEU, ADIFF, BMP ####[address] [place], [place] [address] Platelet mean volume (Bld) [Entitic vol] 9.0 fL Normal 7.4-10.4 [facility] ([place]) Comment on above: Performed By: #### G FR, CBC, ANEU, ADIFF, BMP ####[address] [place], [place] [address] RBC 2.92 10 6/mcL Low 4.04-6.13 [facility] ([place]) Comment on above: Performed By: #### G FR, CBC, ANEU, ADIFF, BMP ####[address] [place], [place] [address] WBC 6.5 10 3/mcL Normal 4.6-10.8 [facility] ([place]) Comment on above: Performed By: #### G FR, CBC, ANEU, ADDEE, BMP ####[address] [place], [place] [address] LABORATORYOrdered By: SYSTEM SYSTEM on 02-07-2023 Basophil, Absolute 0.0 103/mcL Normal 0.0 - 0.2 10^3/mcL AO Workflow SS Basophils/100 WBC (Bld) 0.8 % Normal 0.0 - 2.5 % AO Workflow SS Calcium [Mass/Vol] 9.0 mg/dL Normal 8.4 - 10. 2 mg/dL AO ADM SS Chloride [Moles/Vol] 106 mmol/L Normal 98 - 10 7 mmol/L AO ADM SS CO2 [Moles/Vol] 30 mmol/L Normal 23 - 31 mmol/L AO ADM SS Creatinine [Mass/Vol] 2.77 mg/dL High 0.70 - 1.30 mg/dL AO ADM SS Electrolyte Balance 7.0 mEq/L Normal 4.0 - 15 .0 mEq/L AO ADM SS Eosinophil, Absolute 0.3 103/mcL Normal 0.0 - 0 .4 10^3/mcL AO Workflow SS Eosinophils/100 WBC (Bld) 4.0 % Normal 0.0 - 7.0 % AO Workflow SS Erythrocyte distribution width (RBC) [Ratio] 15.8 % High 11.5 - 14.5 % AO Workflow SS GFR/1.73 sq M.predicted among blacks MDRD (S/P/Bld) [Vol rate/Area] 27 ml/min/1.73sqm Invalid Interpretation Code AO Chemistry S Comment on above: Interpretive Data: GFR Population mean for , Non- Americans Ages 20-29 = 116 mL/min/1.73 sq.m. Ages 30-39 = 107 mL/min/1.73 sq.m. Ages 40-49 = 99 mL/min/1.73 sq.m. Ages 50-59 = 93 mL/min/1.73 sq.m. Ages 60-69 = 85 mL/min/1.73 sq.m. Ages 70+ = 75 mL/min/1.73 sq.m. Chronic Kidney Disease: Less than 60 mL/min/1.73 square meters End Stage Renal Disease: Less than 15 mL/min/1.73 square meters GFR/1.73 sq M.predicted among non-blacks MDRD (S/P/Bld) [Vol rate/Area] 22 ml/min/1.73sqm Invalid Interpretation Code AO Chemistry S Comment on above: Interpretive Data: GFR Population mean for , Non- Americans Ages 20-29 = 116 mL/min/1.73 sq.m. Ages 30-39 = 107 mL/min/1.73 sq.m. Ages 40-49 = 99 mL/min/1.73 sq.m. Ages 50-59 = 93 mL/min/1.73 sq.m. Ages 60-69 = 85 mL/min/1.73 sq.m. Ages 70+ = 75 mL/min/1.73 sq.m. Chronic Kidney Disease: Less than 60 mL/min/1.73 square meters End Stage Renal Disease: Less than 15 mL/min/1.73 square meters Glucose [Mass/Vol] 134 mg/dL High 83 - 110 mg/dL AO ADM SS Hematocrit (Bld) [Volume fraction] 24.2 % Low 42.0 - 52.0 % AO Workflow SS Hemoglobin (Bld) [Mass/Vol] 7.8 G/dL Low 14.0 - 18.0 G/dL AO Workflow SS Lymphocyte, Absolute 1.2 103/mcL Normal 0.8 - 3 .9 10^3/mcL AO Workflow SS Lymphocytes/100 WBC (Bld) 18.5 % Normal 10.0 - 50.0 % AO Workflow SS MCH (RBC) [Entitic mass] 26.6 pg Low 27. 0 - 31.2 pg AO Workflow SS MCHC 32.0 G/dL Normal 31.8 - 35.4 G/dL AO Workflow SS MCV (RBC) [Entitic vol] 83.0 fL Normal 80.0 - 94.0 fL AO Workflow SS Monocyte, Absolute 0.4 103/mcL Normal 0.2 - 1.0 10^3/mcL AO Workflow SS Monocytes/100 WBC (Bld) 6.3 % Normal 1.7 - 13.0 % AO Workflow SS Neutrophil, Absolute 4.6 103/mcL Normal 2.9 - 6 .2 10^3/mcL AO Workflow SS Neutrophils/100 WBC (Bld) 70.4 % Normal 37.0 - 80.0 % AO Workflow SS Platelet mean volume (Bld) [Entitic vol] 9.0 fL Normal 7.4 - 10.4 fL AO Workflow SS Platelets (Bld) [#/Vol] 128 103/mcL Low 130 - 400 10^3/mcL AO Workflow SS Potassium [Moles/Vol] 5.2 mmol/L High 3.5 - 5.1 mmol/L AO ADM SS RBC (Bld) [#/Vol] 2.92 106/mcL Low 4.04 - 6.1 3 10^6/mcL AO Workflow SS Sodium [Moles/Vol] 143 mmol/L Normal 136 - 145 mmol/L AO ADM SS Urea nitrogen [Mass/Vol] 99 mg/dL High 7 - 18 mg/dL AO ADM SS Urea nitrogen/Creatinine [Mass ratio] 36 ratio High 7 - 27 ratio AO ADM SS WBC (Bld) [#/Vol] 6.5 103/mcL Normal 4.6 - 10.8 10^3/mcL AO Workflow SS .GFRon 02-02-2023 GFR 27 ml/min/1.73sqm Normal [facility] ([place]) Comment on above: Result Comment: GFR Population mean for , Non- Americans Ages 20-29 = 116 mL/min/1.73 sq.m. Ages 30-39 = 107 mL/min/1.73 sq.m. Ages 40-49 = 99 mL/min/1.73 sq.m. Ages 50-59 = 93 mL/min/1.73 sq.m. Ages 60-69 = 85 mL/min/1.73 sq.m. Ages 70+ = 75 mL/min/1.73 sq.m.Chronic Kidney Disease: Less than 60 mL/min/1.73 square metersEnd Stage Renal Disease: Less than 15 mL/min/1.73 square meters Performed By: #### C MP, GFR ####[address] [place], [place] [address] GFR Non- 22 ml/min/1.73sqm Normal [facility] ([place]) Comment on above: Result Comment: GFR Population mean for , Non- Americans Ages 20-29 = 116 mL/min/1.73 sq.m. Ages 30-39 = 107 mL/min/1.73 sq.m. Ages 40-49 = 99 mL/min/1.73 sq.m. Ages 50-59 = 93 mL/min/1.73 sq.m. Ages 60-69 = 85 mL/min/1.73 sq.m. Ages 70+ = 75 mL/min/1.73 sq.m.Chronic Kidney Disease: Less than 60 mL/min/1.73 square metersEnd Stage Renal Disease: Less than 15 mL/min/1.73 square meters Performed By: #### C MP, GFR ####[address] [place], [place] [address] CMPon 02-02-2023 Albumin Level 3.4 G/dL Normal 3.4-4.8 [facility] ([place]) Comment on above: Performed By: #### C MP, GFR ####[address] [place], [place] [address] Albumin/Globulin [Mass ratio] 0.9 {ratio} Low 1.1-2.5 [facility] ([place]) Comment on above: Performed By: #### C MP, GFR ####[address] [place], [place] [address] ALP [Catalytic activity/Vol] 71 U/L Normal 40-135 [facility] ([place]) Comment on above: Performed By: #### C MP, GFR ####[address] [place], [place] [address] ALT [Catalytic activity/Vol] 27 U/L Normal 16-63 [facility] ([place]) Comment on above: Performed By: #### C MP, GFR ####[address] [place], [place] [address] AST [Catalytic activity/Vol] 17 U/L Normal 10-40 [facility] ([place]) Comment on above: Performed By: #### C MP, GFR ####[address] [place], [place] [address] Bili Total 0.3 mg/dL Normal 0.2-1.0 [facility] ([place]) Comment on above: Result Comment: Use of this assay is not recommended for patients undergoing treatment with eltrombopag due to the potential for falsely elevated results. Performed By: #### C MP, GFR ####[address] [place], [place] [address] BUN/Creatinine Ratio 34 ratio High 7-27 [facility] ([place]) Comment on above: Performed By: #### C MP, GFR ####[address] [place], [place] [address] Calcium [Mass/Vol] 8.8 mg/dL Normal 8.4-10.2 [facility] ([place]) Comment on above: Performed By: #### C MP, GFR ####[address] [place], [place] [address] Chloride [Moles/Vol] 106 mmol/L Normal 98-107 [facility] ([place]) Comment on above: Performed By: #### C MP, GFR ####[address] [place], [place] [address] CO2 [Moles/Vol] 28 mmol/L Normal 23-31 [facility] ([place]) Comment on above: Performed By: #### C MP, GFR ####[address] [place], [place] [address] Creatinine [Mass/Vol] 2.77 mg/dL High 0.70-1.30 [facility] ([place]) Comment on above: Performed By: #### C MP, GFR ####[address] [place], [place] [address] Electrolyte Balance 9.0 mEq/L Normal 4.0-15.0 [facility] ([place]) Comment on above: Performed By: #### C MP, GFR ####[address] [place], [place] [address] Globulin 3.8 G/dL Normal [facility] ([place]) Comment on above: Performed By: #### C MP, GFR ####[address] [place], [place] [address] Glucose [Mass/Vol] 123 mg/dL High 83-110 [facility] ([place]) Comment on above: Performed By: #### C MP, GFR ####[address] [place], [place] [address] Potassium [Moles/Vol] 5.2 mmol/L High 3.5-5.1 [facility] ([place]) Comment on above: Performed By: #### C MP, GFR ####[address] [place], [place] [address] Sodium [Moles/Vol] 143 mmol/L Normal 136-145 [facility] ([place]) Comment on above: Performed By: #### C MP, GFR ####[address] [place], [place] [address] Total Protein 7.2 G/dL Normal 6.4-8.2 [facility] ([place]) Comment on above: Performed By: #### C MP, GFR ####[address] [place], [place] [address] Urea nitrogen [Mass/Vol] 94 mg/dL High 7-18 [facility] ([place]) Comment on above: Performed By: #### C MP, GFR ####[address] [place], [place] [address] LABORATORYOrdered By: Javier Vega on 02-02-2023 Albumin DL <= 20 mg/L (U) [Mass/Vol] 4585 mcg/dL Invalid Interpretation Code AO ADM SS Albumin/Creatinine DL <= 20 mg/L (U) [Mass ratio] 158 mcg/mg High 0 - 30 mcg/mg AO ADM SS Creatinine (U) [Mass/Vol] 29.0 mg/dL Low 39.0 - 259.0 mg/dL AO ADM SS LABORATORYOrdered By: SYSTEM SYSTEM on 02-02-2023 Albumin BCP dye [Mass/Vol] 3.4 G/dL Normal 3.4 - 4.8 G/dL AO ADM SS Albumin/Globulin [Mass ratio] 0.9 {ratio} Low 1.1 - 2.5 ratio AO ADM SS ALP [Catalytic activity/Vol] 71 U/L Normal 40 - 135 U/L AO ADM SS ALT With P-5'-P [Catalytic activity/Vol] 27 U/L Normal 16 - 63 U/L AO ADM SS AST With P-5'-P [Catalytic activity/Vol] 17 U/L Normal 10 - 40 U/L AO ADM SS Bilirubin [Mass/Vol] 0.3 mg/dL Normal 0.2 - 1 .0 mg/dL AO ADM SS Comment on above: Interpretive Data: U se of this assay is not recommended for patients undergoing treatment with eltrombopag due to the potential for falsely elevated results. Calcium [Mass/Vol] 8.8 mg/dL Normal 8.4 - 10. 2 mg/dL AO ADM SS Chloride [Moles/Vol] 106 mmol/L Normal 98 - 10 7 mmol/L AO ADM SS CO2 [Moles/Vol] 28 mmol/L Normal 23 - 31 mmol/L AO ADM SS Creatinine [Mass/Vol] 2.77 mg/dL High 0.70 - 1.30 mg/dL AO ADM SS Electrolyte Balance 9.0 mEq/L Normal 4.0 - 15 .0 mEq/L AO ADM SS GFR/1.73 sq M.predicted among blacks MDRD (S/P/Bld) [Vol rate/Area] 27 ml/min/1.73sqm Invalid Interpretation Code AO Chemistry S Comment on above: Interpretive Data: GFR Population mean for , Non- Americans Ages 20-29 = 116 mL/min/1.73 sq.m. Ages 30-39 = 107 mL/min/1.73 sq.m. Ages 40-49 = 99 mL/min/1.73 sq.m. Ages 50-59 = 93 mL/min/1.73 sq.m. Ages 60-69 = 85 mL/min/1.73 sq.m. Ages 70+ = 75 mL/min/1.73 sq.m. Chronic Kidney Disease: Less than 60 mL/min/1.73 square meters End Stage Renal Disease: Less than 15 mL/min/1.73 square meters GFR/1.73 sq M.predicted among non-blacks MDRD (S/P/Bld) [Vol rate/Area] 22 ml/min/1.73sqm Invalid Interpretation Code AO Chemistry S Comment on above: Interpretive Data: GFR Population mean for , Non- Americans Ages 20-29 = 116 mL/min/1.73 sq.m. Ages 30-39 = 107 mL/min/1.73 sq.m. Ages 40-49 = 99 mL/min/1.73 sq.m. Ages 50-59 = 93 mL/min/1.73 sq.m. Ages 60-69 = 85 mL/min/1.73 sq.m. Ages 70+ = 75 mL/min/1.73 sq.m. Chronic Kidney Disease: Less than 60 mL/min/1.73 square meters End Stage Renal Disease: Less than 15 mL/min/1.73 square meters Globulin 3.8 G/dL Invalid Interpretation Code AO ADM SS Glucose [Mass/Vol] 123 mg/dL High 83 - 110 mg/dL AO ADM SS Potassium [Moles/Vol] 5.2 mmol/L High 3.5 - 5.1 mmol/L AO ADM SS Protein [Mass/Vol] 7.2 G/dL Normal 6.4 - 8.2 G/dL AO ADM SS Sodium [Moles/Vol] 143 mmol/L Normal 136 - 145 mmol/L AO ADM SS Urea nitrogen [Mass/Vol] 94 mg/dL High 7 - 18 mg/dL AO ADM SS Urea nitrogen/Creatinine [Mass ratio] 34 ratio High 7 - 27 ratio AO ADM SS MALBRon 02-02-2023 U Creatinine 29.0 mg/dL Low 39.0-259.0 [facility] ([place]) Comment on above: Performed By: #### M ALBR ####[address] [place], [place] [address] U Microalb 4585 mcg/dL Normal [facility] ([place]) Comment on above: Performed By: #### M ALBR ####[address] [place], [place] [address] U Ratio Alb/Cre 158 mcg/mg High 0-30 [facility] ([place]) Comment on above: Performed By: #### M ALBR ####[address] [place], [place] [address] .Auto Diffon 01-23-2023 Basophil, Absolute 0.1 10 3/mcL Normal 0.0-0.2 [facility] ([place]) Comment on above: Performed By: #### C BC, ANEU, ADIFF, GFR, CMP ####[address] [place], [place] [address] Basophils/100 WBC (Bld) 1.0 % Normal 0.0-2.5 [facility] ([place]) Comment on above: Performed By: #### C BC, ANEU, ADIFF, GFR, CMP ####[address] [place], [place] [address] Eosinophil, Absolute 0.3 10 3/mcL Normal 0.0-0.4 [facility] ([place]) Comment on above: Performed By: #### C BC, ANEU, ADIFF, GFR, CMP ####[address] [place], [place] [address] Eosinophils/100 WBC (Bld) 4.8 % Normal 0.0-7.0 [facility] ([place]) Comment on above: Performed By: #### C BC, ANEU, ADIFF, GFR, CMP ####[address] [place], [place] [address] Lymphocyte, Absolute 1.2 10 3/mcL Normal 0.8-3.9 [facility] ([place]) Comment on above: Performed By: #### C BC, ANEU, ADIFF, GFR, CMP ####[address] [place], [place] [address] Lymphocytes/100 WBC (Bld) 19.6 % Normal 10.0-50.0 [facility] ([place]) Comment on above: Performed By: #### C BC, ANEU, ADIFF, GFR, CMP ####[address] [place], [place] [address] Monocyte, Absolute 0.5 10 3/mcL Normal 0.2-1.0 [facility] ([place]) Comment on above: Performed By: #### C BC, ANEU, ADIFF, GFR, CMP ####[address] [place], [place] [address] Monocytes/100 WBC (Bld) 8.4 % Normal 1.7-13.0 [facility] ([place]) Comment on above: Performed By: #### C BC, ANEU, ADIFF, GFR, CMP ####[address] [place], [place] [address] Neutrophils/100 WBC (Bld) 66.2 % Normal 37.0-80.0 [facility] ([place]) Comment on above: Performed By: #### C BC, ANEU, ADIFF, GFR, CMP ####[address] [place], [place] [address] .GFRon 01-23-2023 GFR 27 ml/min/1.73sqm Normal [facility] ([place]) Comment on above: Result Comment: GFR Population mean for , Non- Americans Ages 20-29 = 116 mL/min/1.73 sq.m. Ages 30-39 = 107 mL/min/1.73 sq.m. Ages 40-49 = 99 mL/min/1.73 sq.m. Ages 50-59 = 93 mL/min/1.73 sq.m. Ages 60-69 = 85 mL/min/1.73 sq.m. Ages 70+ = 75 mL/min/1.73 sq.m.Chronic Kidney Disease: Less than 60 mL/min/1.73 square metersEnd Stage Renal Disease: Less than 15 mL/min/1.73 square meters Performed By: #### C BC, ANEU, ADIFF, GFR, CMP ####Katie [address] [place], [place] [address] GFR Non- 22 ml/min/1.73sqm Normal [facility] ([place]) Comment on above: Result Comment: GFR Population mean for , Non- Americans Ages 20-29 = 116 mL/min/1.73 sq.m. Ages 30-39 = 107 mL/min/1.73 sq.m. Ages 40-49 = 99 mL/min/1.73 sq.m. Ages 50-59 = 93 mL/min/1.73 sq.m. Ages 60-69 = 85 mL/min/1.73 sq.m. Ages 70+ = 75 mL/min/1.73 sq.m.Chronic Kidney Disease: Less than 60 mL/min/1.73 square metersEnd Stage Renal Disease: Less than 15 mL/min/1.73 square meters Performed By: #### C BC, ANEU, ADIFF, GFR, CMP ####[address] [place], [place] [address] .NEUABSon 01-23-2023 Neutrophil, Absolute 4.2 10 3/mcL Normal 2.9-6.2 [facility] ([place]) Comment on above: Performed By: #### C BC, ANEU, ADIFF, GFR, CMP ####[address] [place], [place] [address] CBCon 01-23-2023 Erythrocyte distribution width (RBC) [Ratio] 14.9 % High 11.5-14.5 [facility] ([place]) Comment on above: Performed By: #### C BC, ANEU, ADIFF, GFR, CMP ####[address] [place], [place] [address] Hematocrit (Bld) [Volume fraction] 26.9 % Low 42.0-52.0 [facility] ([place]) Comment on above: Performed By: #### C BC, ANEU, ADIFF, GFR, CMP ####[address] [place], [place] [address] Hgb 8.7 G/dL Low 14.0-18.0 [facility] ([place]) Comment on above: Performed By: #### C BC, ANEU, ADIFF, GFR, CMP ####[address] [place], [place] [address] MCH (RBC) [Entitic mass] 27.1 pg Normal 27.0-31.2 [facility] ([place]) Comment on above: Performed By: #### C BC, ANEU, ADIFF, GFR, CMP ####[address] [place], [place] [address] MCHC 32.4 G/dL Normal 31.8-35.4 [facility] ([place]) Comment on above: Performed By: #### C BC, ANEU, ADIFF, GFR, CMP ####[address] [place], [place] [address] MCV (RBC) [Entitic vol] 83.6 fL Normal 80.0-94.0 [facility] ([place]) Comment on above: Performed By: #### C BC, ANEU, ADIFF, GFR, CMP ####[address] [place], [place] [address] Platelet 130 10 3/mcL Normal 130-400 [facility] ([place]) Comment on above: Performed By: #### C BC, ANEU, ADIFF, GFR, CMP ####[address] [place], [place] [address] Platelet mean volume (Bld) [Entitic vol] 9.0 fL Normal 7.4-10.4 [facility] ([place]) Comment on above: Performed By: #### C BC, ANEU, ADIFF, GFR, CMP ####[address] [place], [place] [address] RBC 3.22 10 6/mcL Low 4.04-6.13 [facility] ([place]) Comment on above: Performed By: #### C BC, ANEU, ADIFF, GFR, CMP ####[address] [place], [place] [address] WBC 6.4 10 3/mcL Normal 4.6-10.8 [facility] ([place]) Comment on above: Performed By: #### C BC, ANEU, ADIFF, GFR, CMP ####[address] [place], [place] [address] CMPon 01-23-2023 Albumin Level 3.7 G/dL Normal 3.4-4.8 [facility] ([place]) Comment on above: Performed By: #### C BC, ANEU, ADIFF, GFR, CMP ####[address] [place], [place] [address] Albumin/Globulin [Mass ratio] 1.0 {ratio} Low 1.1-2.5 [facility] ([place]) Comment on above: Performed By: #### C BC, ANEU, ADIFF, GFR, CMP ####[address] [place], [place] [address] ALP [Catalytic activity/Vol] 77 U/L Normal 40-135 [facility] ([place]) Comment on above: Performed By: #### C BC, ANEU, ADIFF, GFR, CMP ####[address] [place], [place] [address] ALT [Catalytic activity/Vol] 20 U/L Normal 16-63 [facility] ([place]) Comment on above: Performed By: #### C BC, ANEU, ADIFF, GFR, CMP ####[address] [place], [place] [address] AST [Catalytic activity/Vol] 13 U/L Normal 10-40 [facility] ([place]) Comment on above: Performed By: #### C BC, ANEU, ADIFF, GFR, CMP ####[address] [place], [place] [address] Bili Total 0.4 mg/dL Normal 0.2-1.0 [facility] ([place]) Comment on above: Result Comment: Use of this assay is not recommended for patients undergoing treatment with eltrombopag due to the potential for falsely elevated results. Performed By: #### C BC, ANEU, ADIFF, GFR, CMP ####[address] [place], [place] [address] BUN/Creatinine Ratio 22 ratio Normal 7-27 [facility] ([place]) Comment on above: Performed By: #### C BC, ANEU, ADIFF, GFR, CMP ####[address] [place], [place] [address] Calcium [Mass/Vol] 9.2 mg/dL Normal 8.4-10.2 [facility] ([place]) Comment on above: Performed By: #### C BC, ANEU, ADIFF, GFR, CMP ####[address] [place], [place] [address] Chloride [Moles/Vol] 105 mmol/L Normal 98-107 [facility] ([place]) Comment on above: Performed By: #### C BC, ANEU, ADIFF, GFR, CMP ####[address] [place], [place] [address] CO2 [Moles/Vol] 30 mmol/L Normal 23-31 [facility] ([place]) Comment on above: Performed By: #### C BC, ANEU, ADIFF, GFR, CMP ####[address] [place], [place] [address] Creatinine [Mass/Vol] 2.76 mg/dL High 0.70-1.30 [facility] ([place]) Comment on above: Performed By: #### C BC, ANEU, ADIFF, GFR, CMP ####[address] [place], [place] [address] Electrolyte Balance 9.0 mEq/L Normal 4.0-15.0 [facility] ([place]) Comment on above: Performed By: #### C BC, ANEU, ADIFF, GFR, CMP ####Katie [address] [place], [place] [address] Globulin 3.7 G/dL Normal [facility] ([place]) Comment on above: Performed By: #### C BC, ANEU, ADIFF, GFR, CMP ####Katie [address] [place], [place] [address] Glucose [Mass/Vol] 112 mg/dL High 83-110 [facility] ([place]) Comment on above: Performed By: #### C BC, ANEU, ADIFF, GFR, CMP ####Katie [address] [place], [place] [address] Potassium [Moles/Vol] 4.8 mmol/L Normal 3.5-5.1 [facility] ([place]) Comment on above: Performed By: #### C BC, ANEU, ADIFF, GFR, CMP ####Katie [address] [place], [place] [address] Sodium [Moles/Vol] 144 mmol/L Normal 136-145 [facility] ([place]) Comment on above: Performed By: #### C BC, ANEU, ADIFF, GFR, CMP ####Katie [address] [place], [place] [address] Total Protein 7.4 G/dL Normal 6.4-8.2 [facility] ([place]) Comment on above: Performed By: #### C BC, ANEU, ADIFF, GFR, CMP ####[address] [place], [place] [address] Urea nitrogen [Mass/Vol] 60 mg/dL High 7-18 [facility] ([place]) Comment on above: Performed By: #### C BC, ANEU, ADIFF, GFR, CMP ####Katie [address] [place], [place] [address] .Auto Diffon 01-19-2023 Basophil, Absolute 0.1 10 3/mcL Normal 0.0-0.2 [facility] ([place]) Comment on above: Performed By: #### C BC, ANEU, ADIFF, BMP, GFR ####Katie [address] [place], [place] [address] Basophils/100 WBC (Bld) 1.0 % Normal 0.0-2.5 [facility] ([place]) Comment on above: Performed By: #### C BC, ANEU, ADIFF, BMP, GFR ####Katie [address] [place], [place] [address] Eosinophil, Absolute 0.3 10 3/mcL Normal 0.0-0.4 [facility] ([place]) Comment on above: Performed By: #### C BC, ANEU, ADIFF, BMP, GFR ####Katie [address] [place], [place] [address] Eosinophils/100 WBC (Bld) 5.7 % Normal 0.0-7.0 [facility] ([place]) Comment on above: Performed By: #### C BC, ANEU, ADIFF, BMP, GFR ####Katie [address] [place], [place] [address] Lymphocyte, Absolute 1.4 10 3/mcL Normal 0.8-3.9 [facility] ([place]) Comment on above: Performed By: #### C BC, ANEU, ADIFF, BMP, GFR ####[address] [place], [place] [address] Lymphocytes/100 WBC (Bld) 24.7 % Normal 10.0-50.0 [facility] ([place]) Comment on above: Performed By: #### C BC, ANEU, ADIFF, BMP, GFR ####[address] [place], [place] [address] Monocyte, Absolute 0.5 10 3/mcL Normal 0.2-1.0 [facility] ([place]) Comment on above: Performed By: #### C BC, ANEU, ADIFF, BMP, GFR ####[address] [place], [place] [address] Monocytes/100 WBC (Bld) 8.4 % Normal 1.7-13.0 [facility] ([place]) Comment on above: Performed By: #### C BC, ANEU, ADIFF, BMP, GFR ####Katie [address] [place], [place] [address] Neutrophils/100 WBC (Bld) 60.2 % Normal 37.0-80.0 [facility] ([place]) Comment on above: Performed By: #### C BC, ANEU, ADIFF, BMP, GFR ####Katie [address] [place], [place] [address] .GFRon 01-19-2023 GFR Non- 26 ml/min/1.73sqm Normal [facility] ([place]) Comment on above: Result Comment: GFR Population mean for , Non- Americans Ages 20-29 = 116 mL/min/1.73 sq.m. Ages 30-39 = 107 mL/min/1.73 sq.m. Ages 40-49 = 99 mL/min/1.73 sq.m. Ages 50-59 = 93 mL/min/1.73 sq.m. Ages 60-69 = 85 mL/min/1.73 sq.m. Ages 70+ = 75 mL/min/1.73 sq.m.Chronic Kidney Disease: Less than 60 mL/min/1.73 square metersEnd Stage Renal Disease: Less than 15 mL/min/1.73 square meters Performed By: #### C BC, ANEU, ADIFF, BMP, GFR ####Katie [address] [place], [place] [address] GFR 32 ml/min/1.73sqm Normal [facility] ([place]) Comment on above: Result Comment: GFR Population mean for , Non- Americans Ages 20-29 = 116 mL/min/1.73 sq.m. Ages 30-39 = 107 mL/min/1.73 sq.m. Ages 40-49 = 99 mL/min/1.73 sq.m. Ages 50-59 = 93 mL/min/1.73 sq.m. Ages 60-69 = 85 mL/min/1.73 sq.m. Ages 70+ = 75 mL/min/1.73 sq.m.Chronic Kidney Disease: Less than 60 mL/min/1.73 square metersEnd Stage Renal Disease: Less than 15 mL/min/1.73 square meters Performed By: #### C BC, ANEU, ADIFF, BMP, GFR ####[address] [place], [place] [address] .NEUABSon 01-19-2023 Neutrophil, Absolute 3.5 10 3/mcL Normal 2.9-6.2 [facility] ([place]) Comment on above: Performed By: #### C BC, ANEU, ADIFF, BMP, GFR ####[address] [place], [place] [address] BMPon 01-19-2023 BUN/Creatinine Ratio 26 ratio Normal 7-27 [facility] ([place]) Comment on above: Performed By: #### C BC, ANEU, ADIFF, BMP, GFR ####[address] [place], [place] [address] Calcium [Mass/Vol] 8.6 mg/dL Normal 8.4-10.2 [facility] ([place]) Comment on above: Performed By: #### C BC, ANEU, ADIFF, BMP, GFR ####Katie [address] [place], [place] [address] Chloride [Moles/Vol] 106 mmol/L Normal 98-107 [facility] ([place]) Comment on above: Performed By: #### C BC, ANEU, ADIFF, BMP, GFR ####Katie [address] [place], [place] [address] CO2 [Moles/Vol] 31 mmol/L Normal 23-31 [facility] ([place]) Comment on above: Performed By: #### C BC, ANEU, ADIFF, BMP, GFR ####[address] [place], [place] [address] Creatinine [Mass/Vol] 2.39 mg/dL High 0.70-1.30 [facility] ([place]) Comment on above: Performed By: #### C BC, ANEU, ADIFF, BMP, GFR ####[address] [place], [place] [address] Electrolyte Balance 10.0 mEq/L Normal 4.0-15.0 [facility] ([place]) Comment on above: Performed By: #### C BC, ANEU, ADIFF, BMP, GFR ####Katie [address] [place], [place] [address] Glucose [Mass/Vol] 223 mg/dL High 83-110 [facility] ([place]) Comment on above: Performed By: #### C BC, ANEU, ADIFF, BMP, GFR ####[address] [place], [place] [address] Potassium [Moles/Vol] 4.5 mmol/L Normal 3.5-5.1 [facility] ([place]) Comment on above: Performed By: #### C BC, ANEU, ADIFF, BMP, GFR ####[address] [place], [place] [address] Sodium [Moles/Vol] 147 mmol/L High 136-145 [facility] ([place]) Comment on above: Performed By: #### C BC, ANEU, ADIFF, BMP, GFR ####[address] [place], [place] [address] Urea nitrogen [Mass/Vol] 62 mg/dL High 7-18 [facility] ([place]) Comment on above: Performed By: #### C BC, ANEU, ADIFF, BMP, GFR ####[address] [place], [place] [address] CBCon 01-19-2023 Erythrocyte distribution width (RBC) [Ratio] 14.7 % High 11.5-14.5 [facility] ([place]) Comment on above: Performed By: #### C BC, ANEU, ADIFF, BMP, GFR ####[address] [place], [place] [address] Hematocrit (Bld) [Volume fraction] 26.1 % Low 42.0-52.0 [facility] ([place]) Comment on above: Performed By: #### C BC, ANEU, ADIFF, BMP, GFR ####[address] [place], [place] [address] Hgb 8.4 G/dL Low 14.0-18.0 [facility] ([place]) Comment on above: Performed By: #### C BC, ANEU, ADIFF, BMP, GFR ####Katie [address] [place], [place] [address] MCH (RBC) [Entitic mass] 27.2 pg Normal 27.0-31.2 [facility] ([place]) Comment on above: Performed By: #### C BC, ANEU, ADIFF, BMP, GFR ####[address] [place], [place] [address] MCHC 32.1 G/dL Normal 31.8-35.4 [facility] ([place]) Comment on above: Performed By: #### C BC, ANEU, ADIFF, BMP, GFR ####[address] [place], [place] [address] MCV (RBC) [Entitic vol] 84.6 fL Normal 80.0-94.0 [facility] ([place]) Comment on above: Performed By: #### C BC, ANEU, ADIFF, BMP, GFR ####[address] [place], [place] [address] Platelet 131 10 3/mcL Normal 130-400 [facility] ([place]) Comment on above: Performed By: #### C BC, ANEU, ADIFF, BMP, GFR ####[address] [place], [place] [address] Platelet mean volume (Bld) [Entitic vol] 9.0 fL Normal 7.4-10.4 [facility] ([place]) Comment on above: Performed By: #### C BC, ANEU, ADIFF, BMP, GFR ####Katie [address] [place], [place] [address] RBC 3.09 10 6/mcL Low 4.04-6.13 [facility] ([place]) Comment on above: Performed By: #### C BC, ANEU, ADIFF, BMP, GFR ####[address] [place], [place] [address] WBC 5.7 10 3/mcL Normal 4.6-10.8 [facility] ([place]) Comment on above: Performed By: #### C BC, ANEU, ADIFF, BMP, GFR ####[address] [place], [place] [address] LABORATORYOrdered By: Caroline Ruiz on 01-19-2023 Cholesterol [Mass/Vol] 154 mg/dL Invalid Interpretation Code 0 - 200 mg/dL AO ADM SS Comment on above: Interpretive Data: C holesterol Reference Interval: Less than 200 Desirable 200-239 Borderline high risk 240 and above High risk Cholesterol in HDL [Mass/Vol] 38 mg/dL Invalid Interpretation Code 40 - 60 mg/dL AO ADM SS Cholesterol in LDL [Mass/Vol] 96 mg/dL Invalid Interpretation Code 0 - 130 mg/dL AO ADM SS Triglyceride [Mass/Vol] 100 mg/dL Invalid Interpretation Code 0 - 150 mg/dL AO ADM SS Comment on above: Interpretive Data: T riglyceride Reference Interval: Less than 150 Normal 150-199 Borderline high risk 200-499 High risk 500 or higher Very high risk LIPIDon 01-19-2023 Cholesterol [Mass/Vol] 154 mg/dL Normal 0-200 [facility] ([place]) Comment on above: Result Comment: Chol esterol Reference Interval:Less than 200 [id number] Borderline high kung105 and above High risk Performed By: #### L IPID ####Katie [address] [place], [place] [address] Cholesterol in HDL [Mass/Vol] 38 mg/dL Low 40-60 [facility] ([place]) Comment on above: Performed By: #### L IPID ####Katie [address] [place], [place] [address] Cholesterol in LDL [Mass/Vol] 96 mg/dL Normal 0-130 [facility] ([place]) Comment on above: Performed By: #### L IPID ####Katie [address] [place], [place] [address] Triglyceride [Mass/Vol] 100 mg/dL Normal 0-150 [facility] ([place]) Comment on above: Result Comment: Trig lyceride Reference Interval:Less than 150 [id number] Borderline high [id number] High vatp062 or higher Very high risk Performed By: #### L IPID ####Katie [address] [place], [place] [address] Basophil percentageOrdered B y: Talya Nichols on 12-11-2022 Basophil percentage 4.4 mg/dL 2.5-4.9 [facility] Chloride [Moles/Vol] 107 mmol/L 98-107 [facility] Glucose [Mass/Vol] 160 mg/dL 74-106 [facility] Comment on above: Fasting Glucose resu lt greater than or equal to 126 mg/dL suggests DIABETES MELLITUS per A.D.A. criteria. Potassium [Moles/Vol] 4.2 mmol/L 3.5-5.1 [facility] Sodium [Moles/Vol] 141 mmol/L 136-145 [facility] WBC (Bld) [#/Vol] 4.4 10*3/uL 4.4-11.0 [facility] Blood erythrocytes count (nu mber/volume)Ordered By: Talya Nichols on 12-11-2022 RBC (Bld) [#/Vol] 3.00 10*6/uL 4.6-6.2 [facility] Blood hemoglobin measurement (mass/volume)Ordered By: Talya Nichols on 12-11-2022 Hemoglobin (Bld) [Mass/Vol] 9.0 g/dL 13.0-16.5 [facility] Blood platelet mean volumeOr dered By: Talya Nichols on 12-11-2022 Platelet mean volume (Bld) [Entitic vol] 12.2 fL 6.2-12.0 [facility] Determination of erythrocyte mean corpuscular volume (MCV)Ordered By: Talya Nichols on 12-11-2022 MCV (RBC) [Entitic vol] 95.7 fL 80-94 [facility] Hematocrit Auto (Bld) [Volum e fraction]Ordered By: Talya Nichols on 12-11-2022 Hematocrit (Bld) [Volume fraction] 28.7 % 40-54 [facility] - Chemistry and C hemistry - challengeOrdered By: Talya Nichols on 12-11-2022 CO2 [Moles/Vol] 27.0 mmol/L 21.0-32.0 [facility] Urea nitrogen/Creatinine [Mass ratio] 30.2 mg/mg 10-20 [facility] - Hematology and Cell countsOrdered By: Talya Nichols on 12-11-2022 Erythrocyte distribution width (RBC) [Entitic vol] 46.2 fL 35.1-43.9 [facility] Erythrocyte distribution width (RBC) [Ratio] 13.2 % 11.6-14.6 [facility] MCH (RBC) [Entitic mass] 30.0 pg 27.0-32.0 [facility] MCHC Auto (RBC) [Mass/Vol]Or dered By: Talya Nichols on 12-11-2022 MCHC (RBC) [Mass/Vol] 31.4 g/dL 32-36 [facility] No Panel InformationOrdered By: Talya Nichols on 12-11-2022 Estimated GFR (MDRD) Amer 31 mL/min >60 [facility] Comment on above: GFR Calc Estimated GFR (MDRD) Non-Af Amer 25 mL/min >60 [facility] Comment on above: Non- GFR Calc Platelets bldOrdered By: Oswaldo Nichols on 12-11-2022 Platelets (Bld) [#/Vol] 104 10*3/uL 150-450 [facility] Serum or plasma albumin elmira urement (mass/volume)Ordered By: Talya Nichols on 12-11-2022 Albumin [Mass/Vol] 3.0 g/dL 3.2-5.0 [facility] Serum or plasma calcium elmira urement (mass/volume)Ordered By: Talya Nichols on 12-11-2022 Calcium [Mass/Vol] 8.9 mg/dL 8.5-10.1 [facility] Serum or plasma creatinine m easurement (mass/volume)Ordered By: Talya Nichols on 12-11-2022 Creatinine [Mass/Vol] 2.58 mg/dL 0.70-1.30 [facility] Comment on above: The validity of the calculated GFR & GFRAA in patients over 70 years has not been determined. Clinical correlation is essential. Serum or plasma urea nitroge n measurement (mass/volume)Ordered By: Talya Nichols on 12-11-2022 Urea nitrogen [Mass/Vol] 78 mg/dL 09-26 [facility] RENINDon 11-28-2022 Direct Renin 281.2 pg/mL High 3.6-81.6 [facility] ([place]) Comment on above: Result Comment: A ra emily of aldosterone in ng/dL to direct renin in pg/mL greater than or equal to 3.8 is a positive screening test result for primary aldosteronism, when aldosterone is greater than or equal to 15 ng/dL.The reference interval for direct renin is based on an upright position.The supine reference intervals are:Age <41 years: 3.2-33.2 pg/mLAge >=41 years: 2.5-45.1 pg/mLPerformed By:[place] [id number] Director: Norris Malone III, M.D.CLIA#: [id number] Performed By: #### A LAMBERTO, CBC, VIDH, GFR, CMP, PBNP, ADIFF, A1C, RENIND ####[facility] [place], [place] [address]#### PTH ####[place] [address] Patient Upright or Supine Upright Normal [facility] ([place]) Comment on above: Result Comment: Perf ormed By:[facility] [id number] [place] [id number] Director: Norris Malone III, M.D.CLIA#: [id number] Performed By: #### A LAMBERTO, CBC, VIDH, GFR, CMP, PBNP, ADIFF, A1C, RENIND ####[place] [address]#### PTH ####[address] [address] .Auto Diffon 11-24-2022 Basophil, Absolute 0.1 10 3/mcL Normal 0.0-0.2 [facility] ([place]) Comment on above: Performed By: #### A LAMBERTO, CBC, VIDH, GFR, CMP, PBNP, ADIFF, A1C, RENIND ####[place] [address]#### PTH ####[place] [address] Basophils/100 WBC (Bld) 1.0 % Normal 0.0-2.5 [facility] ([place]) Comment on above: Performed By: #### A LAMBERTO, CBC, VIDH, GFR, CMP, PBNP, ADIFF, A1C, RENIND ####[place] [address]#### PTH ####[place] [address] Eosinophil, Absolute 0.3 10 3/mcL Normal 0.0-0.4 [facility] ([place]) Comment on above: Performed By: #### A LAMBERTO, CBC, VIDH, GFR, CMP, PBNP, ADIFF, A1C, RENIND ####[place] [address]#### PTH ####[place] [address] Eosinophils/100 WBC (Bld) 5.8 % Normal 0.0-7.0 [facility] ([place]) Comment on above: Performed By: #### A LAMBERTO, CBC, VIDH, GFR, CMP, PBNP, ADIFF, A1C, RENIND ####[place] [address]#### PTH ####[place] [address] Lymphocyte, Absolute 1.2 10 3/mcL Normal 0.8-3.9 [facility] ([place]) Comment on above: Performed By: #### A LAMBERTO, CBC, VIDH, GFR, CMP, PBNP, ADIFF, A1C, RENIND ####[place] [address]#### PTH ####[address] [address] Lymphocytes/100 WBC (Bld) 21.5 % Normal 10.0-50.0 [facility] ([place]) Comment on above: Performed By: #### A LAMBERTO, CBC, VIDH, GFR, CMP, PBNP, ADIFF, A1C, RENIND ####[place] [address]#### PTH ####[address] [address] Monocyte, Absolute 0.4 10 3/mcL Normal 0.2-1.0 [facility] ([place]) Comment on above: Performed By: #### A LAMBERTO, CBC, VIDH, GFR, CMP, PBNP, ADIFF, A1C, RENIND ####[place] [address]#### PTH ####[address] [address] Monocytes/100 WBC (Bld) 7.7 % Normal 1.7-13.0 [facility] ([place]) Comment on above: Performed By: #### A LAMBERTO, CBC, VIDH, GFR, CMP, PBNP, ADIFF, A1C, RENIND ####[place] [address]#### PTH ####[address] [address] Neutrophils/100 WBC (Bld) 64.0 % Normal 37.0-80.0 [facility] ([place]) Comment on above: Performed By: #### A LAMBERTO, CBC, VIDH, GFR, CMP, PBNP, ADIFF, A1C, RENIND ####[place] [address]#### PTH ####[address] [address] .GFRon 11-24-2022 GFR 30 ml/min/1.73sqm Normal [facility] ([place]) Comment on above: Result Comment: GFR Population mean for , Non- Americans Ages 20-29 = 116 mL/min/1.73 sq.m. Ages 30-39 = 107 mL/min/1.73 sq.m. Ages 40-49 = 99 mL/min/1.73 sq.m. Ages 50-59 = 93 mL/min/1.73 sq.m. Ages 60-69 = 85 mL/min/1.73 sq.m. Ages 70+ = 75 mL/min/1.73 sq.m.Chronic Kidney Disease: Less than 60 mL/min/1.73 square metersEnd Stage Renal Disease: Less than 15 mL/min/1.73 square meters Performed By: #### A LAMBERTO, CBC, VIDH, GFR, CMP, PBNP, ADIFF, A1C, RENIND ####[address] [place], [place] [address]#### PTH ####[address] [address] GFR Non- 24 ml/min/1.73sqm Normal [facility] ([place]) Comment on above: Result Comment: GFR Population mean for , Non- Americans Ages 20-29 = 116 mL/min/1.73 sq.m. Ages 30-39 = 107 mL/min/1.73 sq.m. Ages 40-49 = 99 mL/min/1.73 sq.m. Ages 50-59 = 93 mL/min/1.73 sq.m. Ages 60-69 = 85 mL/min/1.73 sq.m. Ages 70+ = 75 mL/min/1.73 sq.m.Chronic Kidney Disease: Less than 60 mL/min/1.73 square metersEnd Stage Renal Disease: Less than 15 mL/min/1.73 square meters Performed By: #### A LAMBERTO, CBC, VIDH, GFR, CMP, PBNP, ADIFF, A1C, RENIND ####[address] [place], [place] [address]#### PTH ####[place] [address] .NEUABSon 11-24-2022 Neutrophil, Absolute 3.6 10 3/mcL Normal 2.9-6.2 [facility] ([place]) Comment on above: Performed By: #### A LAMBERTO, CBC, VIDH, GFR, CMP, PBNP, ADIFF, A1C, RENIND ####[place] [address]#### PTH ####[place] [address] A1Con 11-24-2022 HbA1c (Bld) [Mass fraction] 6.3 % Normal 4.3-6.4 [facility] ([place]) Comment on above: Performed By: #### A LAMBERTO, CBC, VIDH, GFR, CMP, PBNP, ADIFF, A1C, RENIND ####[place] [address]#### PTH ####[place] [address] CBCon 11-24-2022 Erythrocyte distribution width (RBC) [Ratio] 14.5 % Normal 11.5-14.5 [facility] ([place]) Comment on above: Performed By: #### A LAMBERTO, CBC, VIDH, GFR, CMP, PBNP, ADIFF, A1C, RENIND ####[place] [address]#### PTH ####[place] [address] Hematocrit (Bld) [Volume fraction] 29.6 % Low 42.0-52.0 [facility] ([place]) Comment on above: Performed By: #### A LAMBERTO, CBC, VIDH, GFR, CMP, PBNP, ADIFF, A1C, RENIND ####[place] [address]#### PTH ####[place] [address] Hgb 9.8 G/dL Low 14.0-18.0 [facility] ([place]) Comment on above: Performed By: #### A LAMBERTO, CBC, VIDH, GFR, CMP, PBNP, ADIFF, A1C, RENIND ####[place] [address]#### PTH ####[place] [address] MCH (RBC) [Entitic mass] 30.2 pg Normal 27.0-31.2 [facility] ([place]) Comment on above: Performed By: #### A LAMBERTO, CBC, VIDH, GFR, CMP, PBNP, ADIFF, A1C, RENIND ####[place] [address]#### PTH ####[place] [address] MCHC 33.0 G/dL Normal 31.8-35.4 [facility] ([place]) Comment on above: Performed By: #### A LAMBERTO, CBC, VIDH, GFR, CMP, PBNP, ADIFF, A1C, RENIND ####[place] [address]#### PTH ####[place] [address] MCV (RBC) [Entitic vol] 91.4 fL Normal 80.0-94.0 [facility] ([place]) Comment on above: Performed By: #### A LAMBERTO, CBC, VIDH, GFR, CMP, PBNP, ADIFF, A1C, RENIND ####[place] [address]#### PTH ####[place] [address] Platelet 153 10 3/mcL Normal 130-400 [facility] ([place]) Comment on above: Performed By: #### A LAMBERTO, CBC, VIDH, GFR, CMP, PBNP, ADIFF, A1C, RENIND ####[place] [address]#### PTH ####[place] [address] Platelet mean volume (Bld) [Entitic vol] 8.1 fL Normal 7.4-10.4 [facility] ([place]) Comment on above: Performed By: #### A LAMBERTO, CBC, VIDH, GFR, CMP, PBNP, ADIFF, A1C, RENIND ####[place] [address]#### PTH ####[place] [address] RBC 3.24 10 6/mcL Low 4.04-6.13 [facility] ([place]) Comment on above: Performed By: #### A LAMBERTO, CBC, VIDH, GFR, CMP, PBNP, ADIFF, A1C, RENIND ####[place] [address]#### PTH ####[place] [address] WBC 5.7 10 3/mcL Normal 4.6-10.8 [facility] ([place]) Comment on above: Performed By: #### A LAMBERTO, CBC, VIDH, GFR, CMP, PBNP, ADIFF, A1C, RENIND ####[place] [address]#### PTH ####[place] [address] CMPon 11-24-2022 Albumin Level 3.6 G/dL Normal 3.4-4.8 [facility] ([place]) Comment on above: Performed By: #### A LAMBERTO, CBC, VIDH, GFR, CMP, PBNP, ADIFF, A1C, RENIND ####[place] [address]#### PTH ####[place] [address] Albumin/Globulin [Mass ratio] 1.0 {ratio} Low 1.1-2.5 [facility] ([place]) Comment on above: Performed By: #### A LAMBERTO, CBC, VIDH, GFR, CMP, PBNP, ADIFF, A1C, RENIND ####[place] [address]#### PTH ####[address] [address] ALP [Catalytic activity/Vol] 81 U/L Normal 40-135 [facility] ([place]) Comment on above: Performed By: #### A LAMBERTO, CBC, VIDH, GFR, CMP, PBNP, ADIFF, A1C, RENIND ####[place] [address]#### PTH ####[address] [address] ALT [Catalytic activity/Vol] 46 U/L Normal 16-63 [facility] ([place]) Comment on above: Performed By: #### A LAMBERTO, CBC, VIDH, GFR, CMP, PBNP, ADIFF, A1C, RENIND ####[place] [address]#### PTH ####[place] [address] AST [Catalytic activity/Vol] 29 U/L Normal 10-40 [facility] ([place]) Comment on above: Performed By: #### A LAMBERTO, CBC, VIDH, GFR, CMP, PBNP, ADIFF, A1C, RENIND ####[place] [address]#### PTH ####[address] [address] Bili Total 0.5 mg/dL Normal 0.2-1.0 [facility] ([place]) Comment on above: Result Comment: Use of this assay is not recommended for patients undergoing treatment with eltrombopag due to the potential for falsely elevated results. Performed By: #### A LAMBERTO, CBC, VIDH, GFR, CMP, PBNP, ADIFF, A1C, RENIND ####[place] [address]#### PTH ####[place] [address] BUN/Creatinine Ratio 23 ratio Normal 7-27 [facility] ([place]) Comment on above: Performed By: #### A LAMBERTO, CBC, VIDH, GFR, CMP, PBNP, ADIFF, A1C, RENIND ####[place] [address]#### PTH ####[address] [address] Calcium [Mass/Vol] 8.7 mg/dL Normal 8.4-10.2 [facility]) Comment on above: Performed By: #### A LAMBERTO, CBC, VIDH, GFR, CMP, PBNP, ADIFF, A1C, RENIND ####[place] [address]#### PTH ####[place] [address] Chloride [Moles/Vol] 105 mmol/L Normal 98-107 [facility] ([place]) Comment on above: Performed By: #### A LAMBERTO, CBC, VIDH, GFR, CMP, PBNP, ADIFF, A1C, RENIND ####[place] [address]#### PTH ####[place] [address] CO2 [Moles/Vol] 28 mmol/L Normal 23-31 [facility] ([place]) Comment on above: Performed By: #### A LAMBERTO, CBC, VIDH, GFR, CMP, PBNP, ADIFF, A1C, RENIND ####[place] [address]#### PTH ####[place] [address] Creatinine [Mass/Vol] 2.53 mg/dL High 0.70-1.30 [facility] ([place]) Comment on above: Performed By: #### A LAMBERTO, CBC, VIDH, GFR, CMP, PBNP, ADIFF, A1C, RENIND ####[place] [address]#### PTH ####[place] [address] Electrolyte Balance 11.0 mEq/L Normal 4.0-15.0 [facility] ([place]) Comment on above: Performed By: #### A LAMBERTO, CBC, VIDH, GFR, CMP, PBNP, ADIFF, A1C, RENIND ####[place] [address]#### PTH ####[address] [address] Globulin 3.6 G/dL Normal [facility] ([place]) Comment on above: Performed By: #### A LAMBERTO, CBC, VIDH, GFR, CMP, PBNP, ADIFF, A1C, RENIND ####[place] [address]#### PTH ####[address] [address] Glucose [Mass/Vol] 207 mg/dL High 83-110 [facility] ([place]) Comment on above: Performed By: #### A LAMBERTO, CBC, VIDH, GFR, CMP, PBNP, ADIFF, A1C, RENIND ####[place] [address]#### PTH ####[address] [address] Potassium [Moles/Vol] 4.9 mmol/L Normal 3.5-5.1 [facility] ([place]) Comment on above: Performed By: #### A LAMBERTO, CBC, VIDH, GFR, CMP, PBNP, ADIFF, A1C, RENIND ####[place] [address]#### PTH ####[address] [address] Sodium [Moles/Vol] 144 mmol/L Normal 136-145 [facility] ([place]) Comment on above: Performed By: #### A LAMBERTO, CBC, VIDH, GFR, CMP, PBNP, ADIFF, A1C, RENIND ####[place] [address]#### PTH ####[address] [address] Total Protein 7.2 G/dL Normal 6.4-8.2 [facility] ([place]) Comment on above: Performed By: #### A LAMBERTO, CBC, VIDH, GFR, CMP, PBNP, ADIFF, A1C, RENIND ####[place] [id number] [place], [place] [address]#### PTH ####[address] [address] Urea nitrogen [Mass/Vol] 59 mg/dL High 7-18 [facility] ([place]) Comment on above: Performed By: #### A LAMBERTO, CBC, VIDH, GFR, CMP, PBNP, ADIFF, A1C, RENIND ####[place] [id number] [place], [place] [address]#### PTH ####[place] [address] LABORATORYOrdered By: SYSTEM SYSTEM on 11-24-2022 25-hydroxyvitamin D3 [Mass/Vol] 39.9 ng/mL Invalid Interpretation Code AO ADM SS Comment on above: Interpretive Data: I nterpretive Values Based on Total 25(OH) Vitamin D: Deficient <20 ng/mL Insufficient 20 - <30 ng/mL Sufficient 30-100 ng/mL Albumin BCP dye [Mass/Vol] 3.6 G/dL Invalid Interpretation Code 3.4 - 4.8 G/dL AO ADM SS Albumin/Globulin [Mass ratio] 1.0 {ratio} Invalid Interpretation Code 1.1 - 2.5 ratio AO ADM SS ALP [Catalytic activity/Vol] 81 U/L Invalid Interpretation Code 40 - 135 U/L AO ADM SS ALT With P-5'-P [Catalytic activity/Vol] 46 U/L Invalid Interpretation Code 16 - 63 U/L AO ADM SS AST With P-5'-P [Catalytic activity/Vol] 29 U/L Invalid Interpretation Code 10 - 40 U/L AO ADM SS Basophil, Absolute 0.1 103/mcL Invalid Interpretation Code 0.0 - 0.2 10^3/mcL AO Workflow SS Basophils/100 WBC (Bld) 1.0 % Invalid Interpretation Code 0.0 - 2.5 % AO Workflow SS Bilirubin [Mass/Vol] 0.5 mg/dL Invalid Interpretation Code 0.2 - 1.0 mg/dL AO ADM SS Comment on above: Interpretive Data: U se of this assay is not recommended for patients undergoing treatment with eltrombopag due to the potential for falsely elevated results. Calcium [Mass/Vol] 8.7 mg/dL Invalid Interpretation Code 8.4 - 10.2 mg/dL AO ADM SS Chloride [Moles/Vol] 105 mmol/L Invalid Interpretation Code 98 - 107 mmol/L AO ADM SS CO2 [Moles/Vol] 28 mmol/L Invalid Interpretation Code 23 - 31 mmol/L AO ADM SS Creatinine [Mass/Vol] 2.53 mg/dL Invalid Interpretation Code 0.70 - 1.30 mg/dL AO ADM SS Electrolyte Balance 11.0 mEq/L Invalid Interpretation Code 4.0 - 15.0 mEq/L AO ADM SS Eosinophil, Absolute 0.3 103/mcL Invalid Interpretation Code 0.0 - 0.4 10^3/mcL AO Workflow SS Eosinophils/100 WBC (Bld) 5.8 % Invalid Interpretation Code 0.0 - 7.0 % AO Workflow SS Erythrocyte distribution width (RBC) [Ratio] 14.5 % Invalid Interpretation Code 11.5 - 14.5 % AO Workflow SS GFR/1.73 sq M.predicted among blacks MDRD (S/P/Bld) [Vol rate/Area] 30 ml/min/1.73sqm Invalid Interpretation Code AO Chemistry S Comment on above: Interpretive Data: GFR Population mean for , Non- Americans Ages 20-29 = 116 mL/min/1.73 sq.m. Ages 30-39 = 107 mL/min/1.73 sq.m. Ages 40-49 = 99 mL/min/1.73 sq.m. Ages 50-59 = 93 mL/min/1.73 sq.m. Ages 60-69 = 85 mL/min/1.73 sq.m. Ages 70+ = 75 mL/min/1.73 sq.m. Chronic Kidney Disease: Less than 60 mL/min/1.73 square meters End Stage Renal Disease: Less than 15 mL/min/1.73 square meters GFR/1.73 sq M.predicted among non-blacks MDRD (S/P/Bld) [Vol rate/Area] 24 ml/min/1.73sqm Invalid Interpretation Code AO Chemistry S Comment on above: Interpretive Data: GFR Population mean for , Non- Americans Ages 20-29 = 116 mL/min/1.73 sq.m. Ages 30-39 = 107 mL/min/1.73 sq.m. Ages 40-49 = 99 mL/min/1.73 sq.m. Ages 50-59 = 93 mL/min/1.73 sq.m. Ages 60-69 = 85 mL/min/1.73 sq.m. Ages 70+ = 75 mL/min/1.73 sq.m. Chronic Kidney Disease: Less than 60 mL/min/1.73 square meters End Stage Renal Disease: Less than 15 mL/min/1.73 square meters Globulin 3.6 G/dL Invalid Interpretation Code AO ADM SS Glucose [Mass/Vol] 207 mg/dL Invalid Interpretation Code 83 - 110 mg/dL AO ADM SS HbA1c (Bld) [Mass fraction] 6.3 % Invalid Interpretation Code 4.3 - 6.4 % AO ADM SS Hematocrit (Bld) [Volume fraction] 29.6 % Invalid Interpretation Code 42.0 - 52.0 % AO Workflow SS Hemoglobin (Bld) [Mass/Vol] 9.8 G/dL Invalid Interpretation Code 14.0 - 18.0 G/dL AO Workflow SS Lymphocyte, Absolute 1.2 103/mcL Invalid Interpretation Code 0.8 - 3.9 10^3/mcL AO Workflow SS Lymphocytes/100 WBC (Bld) 21.5 % Invalid Interpretation Code 10.0 - 50.0 % AO Workflow SS MCH (RBC) [Entitic mass] 30.2 pg Invalid Interpretation Code 27.0 - 31.2 pg AO Workflow SS MCHC 33.0 G/dL Invalid Interpretation Code 31.8 - 35.4 G/dL AO Workflow SS MCV (RBC) [Entitic vol] 91.4 fL Invalid Interpretation Code 80.0 - 94.0 fL AO Workflow SS Monocyte, Absolute 0.4 103/mcL Invalid Interpretation Code 0.2 - 1.0 10^3/mcL AO Workflow SS Monocytes/100 WBC (Bld) 7.7 % Invalid Interpretation Code 1.7 - 13.0 % AO Workflow SS Natriuretic peptide.B prohormone N-Terminal [Mass/Vol] 538 pg/mL Invalid Interpretation Code 0 - 450 pg/mL AO ADM SS Comment on above: Interpretive Data: N T-proBNP results of less than 300 pg/mL effectively rules out acute congestive heart failure with 99% negative predictive value. Neutrophil, Absolute 3.6 103/mcL Invalid Interpretation Code 2.9 - 6.2 10^3/mcL AO Workflow SS Neutrophils/100 WBC (Bld) 64.0 % Invalid Interpretation Code 37.0 - 80.0 % AO Workflow SS Parathyrin.intact [Mass/Vol] 235.9 pg/mL Invalid Interpretation Code 18.5 - 88.0 pg/mL AH ADM SS Platelet mean volume (Bld) [Entitic vol] 8.1 fL Invalid Interpretation Code 7.4 - 10.4 fL AO Workflow SS Platelets (Bld) [#/Vol] 153 103/mcL Invalid Interpretation Code 130 - 400 10^3/mcL AO Workflow SS Potassium [Moles/Vol] 4.9 mmol/L Invalid Interpretation Code 3.5 - 5.1 mmol/L AO ADM SS Protein [Mass/Vol] 7.2 G/dL Invalid Interpretation Code 6.4 - 8.2 G/dL AO ADM SS RBC (Bld) [#/Vol] 3.24 106/mcL Invalid Interpretation Code 4.04 - 6.13 10^6/mcL AO Workflow SS Sodium [Moles/Vol] 144 mmol/L Invalid Interpretation Code 136 - 145 mmol/L AO ADM SS Urea nitrogen [Mass/Vol] 59 mg/dL Invalid Interpretation Code 7 - 18 mg/dL AO ADM SS Urea nitrogen/Creatinine [Mass ratio] 23 ratio Invalid Interpretation Code 7 - 27 ratio AO ADM SS WBC (Bld) [#/Vol] 5.7 103/mcL Invalid Interpretation Code 4.6 - 10.8 10^3/mcL AO Workflow SS PBNPon 11-24-2022 Natriuretic peptide B (Bld) [Mass/Vol] 538 pg/mL High 0-450 [facility] ([place]) Comment on above: Result Comment: NT-p roBNP results of less than 300 pg/mL effectivelyrules out acute congestive heart failure with 99% negative predictive value. Performed By: #### A LAMBERTO, CBC, VIDH, GFR, CMP, PBNP, ADIFF, A1C, RENIND ####[id number] [place], [place] [address]#### PTH ####Katie [address] [address] PTHon 11-24-2022 PTH, Intact 235.9 pg/mL High 18.5-88.0 [facility] ([place]) Comment on above: Performed By: #### A LAMBERTO, CBC, VIDH, GFR, CMP, PBNP, ADIFF, A1C, RENIND ####[place] [id number]#### PTH ####[place] [id number] VIDHon 11-24-2022 Vit. D 25-Hydroxy 39.9 ng/mL Normal [facility] ([place]) Comment on above: Result Comment: Inte rpretive Values Based on Total 25(OH) Vitamin D:Deficient <20 ng/mLInsufficient 20 - <30 ng/mLSufficient 30-100 ng/mL Performed By: #### A LAMBERTO, CBC, VIDH, GFR, CMP, PBNP, ADIFF, A1C, RENIND ####[id number] [place] [address]#### PTH ####[place] [address] Basophil percentageOrdered B y: Erika Godwin on 11-18-2022 Basophil percentage 2.6 mg/dL 2.5-4.9 [facility] Chloride [Moles/Vol] 113 mmol/L 98-107 [facility] Glucose [Mass/Vol] 254 mg/dL 74-106 [facility] Comment on above: Glucose result great er than or equal to 200 mg/dLsuggests DIABETES MELLITUS per A.D.A. criteria. Potassium [Moles/Vol] 5.0 mmol/L 3.5-5.1 [facility] Sodium [Moles/Vol] 142 mmol/L 136-145 [facility] WBC (Bld) [#/Vol] 6.0 10*3/uL 4.4-11.0 [facility] Blood erythrocytes count (nu mber/volume)Ordered By: Erika Godwin on 11-18-2022 RBC (Bld) [#/Vol] 2.80 10*6/uL 4.6-6.2 [facility] Blood hemoglobin measurement (mass/volume)Ordered By: Erika Godwin on 11-18-2022 Hemoglobin (Bld) [Mass/Vol] 8.4 g/dL 13.0-16.5 [facility] Blood platelet mean volumeOr dered By: Erika Godwin on 11-18-2022 Platelet mean volume (Bld) [Entitic vol] 10.7 fL 6.2-12.0 [facility] Determination of erythrocyte mean corpuscular volume (MCV)Ordered By: Erika Godwin on 11-18-2022 MCV (RBC) [Entitic vol] 98.9 fL 80-94 [facility] Glucose Glucometer (BldC) [M ass/Vol]Ordered By: Erika Godwin on 11-18-2022 Glucose [Mass/Vol] 258 mg/dL 74-106 [facility] Comment on above: MANAGEMENT OF PATIEN T CARE PER NURSING PROTOCOL Hematocrit Auto (Bld) [Volum e fraction]Ordered By: Erika Godwin on 11-18-2022 Hematocrit (Bld) [Volume fraction] 27.7 % 40-54 [facility] - Chemistry and C hemistry - challengeOrdered By: Erika Godwin on 11-18-2022 CO2 [Moles/Vol] 25.0 mmol/L 21.0-32.0 [facility] Magnesium [Mass/Vol] 2.1 mg/dL 1.6-2.6 [facility] Urea nitrogen/Creatinine [Mass ratio] 25.6 mg/mg 10-20 [facility] - Hematology and Cell countsOrdered By: Erika Godwin on 11-18-2022 Erythrocyte distribution width (RBC) [Entitic vol] 52.4 fL 35.1-43.9 [facility] Erythrocyte distribution width (RBC) [Ratio] 14.4 % 11.6-14.6 [facility] MCH (RBC) [Entitic mass] 30.0 pg 27.0-32.0 [facility] MCHC Auto (RBC) [Mass/Vol]Or dered By: Erika Godwin on 11-18-2022 MCHC (RBC) [Mass/Vol] 30.3 g/dL 32-36 [facility] No Panel InformationOrdered By: Erika Godwin on 11-18-2022 Estimated Creatinine Clearance Calc 20.46 ml/min [facility] Estimated GFR (MDRD) Amer 34 mL/min >60 [facility] Comment on above: GFR Calc Estimated GFR (MDRD) Non-Af Amer 28 mL/min >60 [facility] Comment on above: Non- GFR Calc Platelets bldOrdered By: Jon Godwin on 11-18-2022 Platelets (Bld) [#/Vol] 112 10*3/uL 150-450 [facility] Serum or plasma calcium elmira urement (mass/volume)Ordered By: Erika Godwin on 11-18-2022 Calcium [Mass/Vol] 8.4 mg/dL 8.5-10.1 [facility] Serum or plasma creatinine m easurement (mass/volume)Ordered By: Erika Godwin on 11-18-2022 Creatinine [Mass/Vol] 2.38 mg/dL 0.70-1.30 [facility] Comment on above: The validity of the calculated GFR & GFRAA in patients over 70 years has not been determined. Clinical correlation is essential. Serum or plasma urea nitroge n measurement (mass/volume)Ordered By: Erika Godwin on 11-18-2022 Urea nitrogen [Mass/Vol] 61 mg/dL 7-18 [facility] Thin prep Papanicolaou smear with manual screeningOrdered By: Erika Godwin on 11-18-2022 Thin prep Papanicolaou smear with manual screening 4 5-15 [facility] Absolute lymphocyte countOrd ered By: Tracy Stanley on 11-17-2022 Lymphocytes Auto (Unsp spec) [#/Vol] 1.32 10*3/uL 0.83-4.51 [facility] Basophil percentageOrdered B y: Tracy Stanley on 11-17-2022 Basophils/100 WBC (Bld) 0.7 % 0-1 [facility] Bilirubin [Mass/Vol] 1.30 mg/dL 0.20-1.00 [facility] Comment on above: For patients on eltr ombopag therapy, use of Dimension [place] TBIL is not recommended. Eosinophils/100 WBC (Bld) 8.8 % 0-5 [facility] Neutrophils (Bld) [#/Vol] 3.1 10*3/uL 2.0-7.7 [facility] Neutrophils/100 WBC (Bld) 58.6 % 47-70 [facility] Protein [Mass/Vol] 6.4 g/dL 6.4-8.2 [facility] Blood lymphocytes/100 leukoc ytesOrdered By: Tracy Stanley on 11-17-2022 Lymphocytes/100 WBC (Bld) 24.6 % 19-41 [facility] Blood monocytes/100 leukocyt esOrdered By: Tracy Stanley on 11-17-2022 Monocytes/100 WBC (Bld) 7.1 % 0-10 [facility] Laboratory - Chemistry and C hemistry - challengeOrdered By: Tracy Stanley on 11-17-2022 ALP [Catalytic activity/Vol] 61 U/L 45-117 [facility] ALT [Catalytic activity/Vol] 23 U/L 16-61 [facility] Globulin (S) [Mass/Vol] 3.6 g/dL 2.2-4.2 [facility] Laboratory - Hematology and Cell countsOrdered By: Tracy Stanley on 11-17-2022 Immature granulocytes/100 WBC (Bld) 0.200 % 0.0-0.9 [facility] Comment on above: IG% - Immature Granu locytes (promyelocytes, myelocytes and metamyelocytes) > 1% indicates that a LEFT SHIFT is Present. Nucleated RBC/100 WBC (Bld) [Ratio] 0 % 0-5 [facility] Serum or plasma albumin elmira urement (mass/volume)Ordered By: Tracy Angel on 11-17-2022 Albumin [Mass/Vol] 2.8 g/dL 3.2-5.0 [facility] Serum or plasma albumin/glob ulin mass ratioOrdered By: Tracy Stanley on 11-17-2022 Albumin/Globulin [Mass ratio] 0.8 {ratio} 0.9-2.4 [facility] Thin prep Papanicolaou smear with manual screeningOrdered By: [facility] Stanley on 11-17-2022 Thin prep Papanicolaou smear with manual screening 17 U/L 15-37 [facility] Absolute lymphocyte countOrd ered By: Lonnie Moreno on 11-16-2022 Lymphocytes Auto (Unsp spec) [#/Vol] 1.12 10*3/uL 0.83-4.51 [facility] Basophil percentageOrdered B y: Lonnie Moreno on 11-16-2022 Basophils/100 WBC (Bld) 0.4 % 0-1 [facility] Chloride [Moles/Vol] 103 mmol/L 98-107 [facility] Eosinophils/100 WBC (Bld) 5.5 % 0-5 [facility] Glucose [Mass/Vol] 235 mg/dL 74-106 [facility] Comment on above: Glucose result great er than or equal to 200 mg/dLsuggests DIABETES MELLITUS per A.D.A. criteria. Neutrophils (Bld) [#/Vol] 3.8 10*3/uL 2.0-7.7 [facility] Neutrophils/100 WBC (Bld) 67.7 % 47-70 [facility] Potassium [Moles/Vol] 5.1 mmol/L 3.5-5.1 [facility] Sodium [Moles/Vol] 139 mmol/L 136-145 [facility] WBC (Bld) [#/Vol] 5.7 10*3/uL 4.4-11.0 [facility] Blood erythrocytes count (nu mber/volume)Ordered By: Lonnie Moreno on 11-16-2022 RBC (Bld) [#/Vol] 2.13 10*6/uL 4.6-6.2 [facility] Blood hemoglobin measurement (mass/volume)Ordered By: Lonnie Moreno on 11-16-2022 Hemoglobin (Bld) [Mass/Vol] 6.4 g/dL 13.0-16.5 [facility] Blood lymphocytes/100 leukoc ytesOrdered By: Lonnie Moreno on 11-16-2022 Lymphocytes/100 WBC (Bld) 19.8 % 19-41 [facility] Blood monocytes/100 leukocyt esOrdered By: Lonnie Moreno on 11-16-2022 Monocytes/100 WBC (Bld) 6.2 % 0-10 [facility] Blood platelet mean volumeOr dered By: Lonnie Moreno on 11-16-2022 Platelet mean volume (Bld) [Entitic vol] 10.9 fL 6.2-12.0 [facility] COVID-19 virus antigen assay Ordered By: Lonnie Moreno on 11-16-2022 SARS-CoV-2 (COVID-19) Ag IA.rapid Ql (Resp) [facility] SARS-CoV-2 (COVID-19) Ag IA.rapid Ql (Resp) [facility] Determination of erythrocyte mean corpuscular volume (MCV)Ordered By: Lonnie Moreno on 11-16-2022 MCV (RBC) [Entitic vol] 98.1 fL 80-94 [facility] Hematocrit Auto (Bld) [Volum e fraction]Ordered By: Lonnie Moreno on 11-16-2022 Hematocrit (Bld) [Volume fraction] 20.9 % 40-54 [facility] - Chemistry and C hemistry - challengeOrdered By: Lonnie Moreno on 11-16-2022 CO2 [Moles/Vol] 29.0 mmol/L 21.0-32.0 [facility] Natriuretic peptide B (Bld) [Mass/Vol] 50.7 pg/mL 0-100 [facility] Urea nitrogen/Creatinine [Mass ratio] 29.2 mg/mg 10-20 [facility] - Hematology and Cell countsOrdered By: Lonnie Moreno on 11-16-2022 Erythrocyte distribution width (RBC) [Entitic vol] 50.7 fL 35.1-43.9 [facility] Erythrocyte distribution width (RBC) [Ratio] 14.6 % 11.6-14.6 [facility] Immature granulocytes/100 WBC (Bld) 0.400 % 0.0-0.9 [facility] Comment on above: IG% - Immature Granu locytes (promyelocytes, myelocytes and metamyelocytes) > 1% indicates that a LEFT SHIFT is Present. MCH (RBC) [Entitic mass] 30.0 pg 27.0-32.0 [facility] Nucleated RBC/100 WBC (Bld) [Ratio] 0 % 0-5 [facility] MCHC Auto (RBC) [Mass/Vol]Or dered By: Lonnie Moreno on 11-16-2022 MCHC (RBC) [Mass/Vol] 30.6 g/dL 32-36 [facility] No Panel InformationOrdered By: Lonnie Moreno on 11-16-2022 Estimated Creatinine Clearance Calc 16.73 ml/min [facility] Estimated GFR (MDRD) Amer 27 mL/min >60 [facility] Comment on above: GFR Calc Estimated GFR (MDRD) Non-Af Amer 22 mL/min >60 [facility] Comment on above: Non- GFR Calc Troponin I High Sensitivity 25 pg/mL 3.0-78.0 [facility] Comment on above: Please Note: New Arti t Units and Gender Specific Reference Ranges. For more information see Policy Stat Procedure [place] High Sensitivity Troponin (TNIH) and attachments. Platelets bldOrdered By: Robb Moreno on 11-16-2022 Platelets (Bld) [#/Vol] 124 10*3/uL 150-450 [facility] Serum or plasma calcium elmira urement (mass/volume)Ordered By: Lonnie Moreno on 11-16-2022 Calcium [Mass/Vol] 9.1 mg/dL 8.5-10.1 [facility] Serum or plasma creatinine m easurement (mass/volume)Ordered By: Lonnie Moreno on 11-16-2022 Creatinine [Mass/Vol] 2.91 mg/dL 0.70-1.30 [facility] Comment on above: The validity of the calculated GFR & GFRAA in patients over 70 years has not been determined. Clinical correlation is essential. Serum or plasma urea nitroge n measurement (mass/volume)Ordered By: Lonnie Moreno on 11-16-2022 Urea nitrogen [Mass/Vol] 85 mg/dL 7-18 [facility] Stool gastrointestinal hemog lobin detection by immunologic methodOrdered By: Lonnie Moreno on 11-16-2022 Lower GI hemoglobin IA Ql (Stl) [facility] Lower GI hemoglobin IA Ql (Stl) [facility] Thin prep Papanicolaou smear with manual screeningOrdered By: Lonnie Moreno on 11-16-2022 Thin prep Papanicolaou smear with manual screening 7 5-15 [facility] .GFRon 11-08-2022 GFR 30 ml/min/1.73sqm Normal [facility] ([place]) Comment on above: Result Comment: GFR Population mean for , Non- Americans Ages 20-29 = 116 mL/min/1.73 sq.m. Ages 30-39 = 107 mL/min/1.73 sq.m. Ages 40-49 = 99 mL/min/1.73 sq.m. Ages 50-59 = 93 mL/min/1.73 sq.m. Ages 60-69 = 85 mL/min/1.73 sq.m. Ages 70+ = 75 mL/min/1.73 sq.m.Chronic Kidney Disease: Less than 60 mL/min/1.73 square metersEnd Stage Renal Disease: Less than 15 mL/min/1.73 square meters Performed By: #### B MP, PBNP, GFR ####[address] [address] GFR Non- 25 ml/min/1.73sqm Normal [facility] ([place]) Comment on above: Result Comment: GFR Population mean for , Non- Americans Ages 20-29 = 116 mL/min/1.73 sq.m. Ages 30-39 = 107 mL/min/1.73 sq.m. Ages 40-49 = 99 mL/min/1.73 sq.m. Ages 50-59 = 93 mL/min/1.73 sq.m. Ages 60-69 = 85 mL/min/1.73 sq.m. Ages 70+ = 75 mL/min/1.73 sq.m.Chronic Kidney Disease: Less than 60 mL/min/1.73 square metersEnd Stage Renal Disease: Less than 15 mL/min/1.73 square meters Performed By: #### B MP, PBNP, GFR ####[address] [address] BMPon 11-08-2022 BUN/Creatinine Ratio 34 ratio High 7-27 [facility] ([place]) Comment on above: Performed By: #### B MP, PBNP, GFR ####[address] [address] Calcium [Mass/Vol] 9.3 mg/dL Normal 8.4-10.2 [facility] Comment on above: Performed By: #### B MP, PBNP, GFR ####[address] [address] Chloride [Moles/Vol] 104 mmol/L Normal 98-107 [facility] ([place]) Comment on above: Performed By: #### B MP, PBNP, GFR ####[address] [address] CO2 [Moles/Vol] 32 mmol/L High 23-31 [facility] ([place]) Comment on above: Performed By: #### B MP, PBNP, GFR ####[address] [address] Creatinine [Mass/Vol] 2.49 mg/dL High 0.70-1.30 [facility] ([place]) Comment on above: Performed By: #### B MP, PBNP, GFR ####[address] [address] Electrolyte Balance 9.0 mEq/L Normal 4.0-15.0 [facility] ([place]) Comment on above: Performed By: #### B MP, PBNP, GFR ####[address] [address] Glucose [Mass/Vol] 241 mg/dL High 83-110 [facility] Comment on above: Performed By: #### B MP, PBNP, GFR ####[address] [address] Potassium [Moles/Vol] 5.1 mmol/L Normal 3.5-5.1 [facility] ([place]) Comment on above: Performed By: #### B MP, PBNP, GFR ####[address] [address] Sodium [Moles/Vol] 145 mmol/L Normal 136-145 [facility] ([place] Comment on above: Performed By: #### B MP, PBNP, GFR ####[address] [address] Urea nitrogen [Mass/Vol] 85 mg/dL High 7-18 [facility] ([place]) Comment on above: Performed By: #### B MP, PBNP, GFR ####[address] [address] LABORATORYOrdered By: SYSTEM SYSTEM on 11-08-2022 Calcium [Mass/Vol] 9.3 mg/dL Invalid Interpretation Code 8.4 - 10.2 mg/dL AO ADM SS Chloride [Moles/Vol] 104 mmol/L Invalid Interpretation Code 98 - 107 mmol/L AO ADM SS CO2 [Moles/Vol] 32 mmol/L Invalid Interpretation Code 23 - 31 mmol/L AO ADM SS Creatinine [Mass/Vol] 2.49 mg/dL Invalid Interpretation Code 0.70 - 1.30 mg/dL AO ADM SS Electrolyte Balance 9.0 mEq/L Invalid Interpretation Code 4.0 - 15.0 mEq/L AO ADM SS GFR/1.73 sq M.predicted among blacks MDRD (S/P/Bld) [Vol rate/Area] 30 ml/min/1.73sqm Invalid Interpretation Code AO Chemistry S Comment on above: Interpretive Data: GFR Population mean for , Non- Americans Ages 20-29 = 116 mL/min/1.73 sq.m. Ages 30-39 = 107 mL/min/1.73 sq.m. Ages 40-49 = 99 mL/min/1.73 sq.m. Ages 50-59 = 93 mL/min/1.73 sq.m. Ages 60-69 = 85 mL/min/1.73 sq.m. Ages 70+ = 75 mL/min/1.73 sq.m. Chronic Kidney Disease: Less than 60 mL/min/1.73 square meters End Stage Renal Disease: Less than 15 mL/min/1.73 square meters GFR/1.73 sq M.predicted among non-blacks MDRD (S/P/Bld) [Vol rate/Area] 25 ml/min/1.73sqm Invalid Interpretation Code AO Chemistry S Comment on above: Interpretive Data: GFR Population mean for , Non- Americans Ages 20-29 = 116 mL/min/1.73 sq.m. Ages 30-39 = 107 mL/min/1.73 sq.m. Ages 40-49 = 99 mL/min/1.73 sq.m. Ages 50-59 = 93 mL/min/1.73 sq.m. Ages 60-69 = 85 mL/min/1.73 sq.m. Ages 70+ = 75 mL/min/1.73 sq.m. Chronic Kidney Disease: Less than 60 mL/min/1.73 square meters End Stage Renal Disease: Less than 15 mL/min/1.73 square meters Glucose [Mass/Vol] 241 mg/dL Invalid Interpretation Code 83 - 110 mg/dL AO ADM SS Natriuretic peptide.B prohormone N-Terminal [Mass/Vol] 570 pg/mL Invalid Interpretation Code 0 - 450 pg/mL AO ADM SS Comment on above: Interpretive Data: N T-proBNP results of less than 300 pg/mL effectively rules out acute congestive heart failure with 99% negative predictive value. Potassium [Moles/Vol] 5.1 mmol/L Invalid Interpretation Code 3.5 - 5.1 mmol/L AO ADM SS Sodium [Moles/Vol] 145 mmol/L Invalid Interpretation Code 136 - 145 mmol/L AO ADM SS Urea nitrogen [Mass/Vol] 85 mg/dL Invalid Interpretation Code 7 - 18 mg/dL AO ADM SS Urea nitrogen/Creatinine [Mass ratio] 34 ratio Invalid Interpretation Code 7 - 27 ratio AO ADM SS PBNPon 11-08-2022 Natriuretic peptide B (Bld) [Mass/Vol] 570 pg/mL High 0-450 [facility] ([place]) Comment on above: Result Comment: NT-p roBNP results of less than 300 pg/mL effectivelyrules out acute congestive heart failure with 99% negative predictive value. Performed By: #### B MP, PBNP, GFR ####[address] [address] .Auto Diffon 10-31-2022 Basophil, Absolute 0.0 10 3/mcL Normal 0.0-0.2 [facility] ([place]) Comment on above: Performed By: #### C BC, GFR, ADIFF, BMP, PBNP, ANEU ####[address] [address] Basophils/100 WBC (Bld) 0.3 % Normal 0.0-2.5 [facility] ([place]) Comment on above: Performed By: #### C BC, GFR, ADIFF, BMP, PBNP, ANEU ####[address] [address] Eosinophil, Absolute 0.7 10 3/mcL High 0.0-0.4 [facility] ([place]) Comment on above: Performed By: #### C BC, GFR, ADIFF, BMP, PBNP, ANEU ####[address] [address] Eosinophils/100 WBC (Bld) 5.1 % Normal 0.0-7.0 [facility] ([place]) Comment on above: Performed By: #### C BC, GFR, ADIFF, BMP, PBNP, ANEU ####[address] [address] Lymphocyte, Absolute 2.0 10 3/mcL Normal 0.8-3.9 [facility] ([place]) Comment on above: Performed By: #### C BC, GFR, ADIFF, BMP, PBNP, ANEU ####[address] [address] Lymphocytes/100 WBC (Bld) 15.0 % Normal 10.0-50.0 [facility] ([place]) Comment on above: Performed By: #### C BC, GFR, ADIFF, BMP, PBNP, ANEU ####[address] [address] Monocyte, Absolute 0.8 10 3/mcL Normal 0.2-1.0 [facility] ([place]) Comment on above: Performed By: #### C BC, GFR, ADIFF, BMP, PBNP, ANEU ####[address] [address] Monocytes/100 WBC (Bld) 6.0 % Normal 1.7-13.0 [facility] ([place]) Comment on above: Performed By: #### C BC, GFR, ADIFF, BMP, PBNP, ANEU ####[address] [address] Neutrophils/100 WBC (Bld) 73.6 % Normal 37.0-80.0 [facility] ([place]) Comment on above: Performed By: #### C BC, GFR, ADIFF, BMP, PBNP, ANEU ####[address] [address] .GFRon 10-31-2022 GFR 28 ml/min/1.73sqm Normal [facility] ([place]) Comment on above: Result Comment: GFR Population mean for , Non- Americans Ages 20-29 = 116 mL/min/1.73 sq.m. Ages 30-39 = 107 mL/min/1.73 sq.m. Ages 40-49 = 99 mL/min/1.73 sq.m. Ages 50-59 = 93 mL/min/1.73 sq.m. Ages 60-69 = 85 mL/min/1.73 sq.m. Ages 70+ = 75 mL/min/1.73 sq.m.Chronic Kidney Disease: Less than 60 mL/min/1.73 square metersEnd Stage Renal Disease: Less than 15 mL/min/1.73 square meters Performed By: #### C BC, GFR, ADIFF, BMP, PBNP, ANEU ####[address] [address] GFR Non- 23 ml/min/1.73sqm Normal [facility] ([place]) Comment on above: Result Comment: GFR Population mean for , Non- Americans Ages 20-29 = 116 mL/min/1.73 sq.m. Ages 30-39 = 107 mL/min/1.73 sq.m. Ages 40-49 = 99 mL/min/1.73 sq.m. Ages 50-59 = 93 mL/min/1.73 sq.m. Ages 60-69 = 85 mL/min/1.73 sq.m. Ages 70+ = 75 mL/min/1.73 sq.m.Chronic Kidney Disease: Less than 60 mL/min/1.73 square metersEnd Stage Renal Disease: Less than 15 mL/min/1.73 square meters Performed By: #### C BC, GFR, ADIFF, BMP, PBNP, ANEU ####[address] [address] .NEUABSon 10-31-2022 Neutrophil, Absolute 9.6 10 3/mcL High 2.9-6.2 [facility] ([place]) Comment on above: Performed By: #### C BC, GFR, ADIFF, BMP, PBNP, ANEU ####[address] [address] BMPon 10-31-2022 BUN/Creatinine Ratio 47 ratio High 7-27 [facility] ([place]) Comment on above: Performed By: #### C BC, GFR, ADIFF, BMP, PBNP, ANEU ####[address] [address] Calcium [Mass/Vol] 8.2 mg/dL Low 8.4-10.2 [facility] [place]) Comment on above: Performed By: #### C BC, GFR, ADIFF, BMP, PBNP, ANEU ####[address] [address] Chloride [Moles/Vol] 102 mmol/L Normal 98-107 [facility] ([place]) Comment on above: Performed By: #### C BC, GFR, ADIFF, BMP, PBNP, ANEU ####[address] [address] CO2 [Moles/Vol] 29 mmol/L Normal 23-31 [facility] ([place]) Comment on above: Performed By: #### C BC, GFR, ADIFF, BMP, PBNP, ANEU ####[address] [address] Creatinine [Mass/Vol] 2.67 mg/dL High 0.70-1.30 [facility] ([place]) Comment on above: Performed By: #### C BC, GFR, ADIFF, BMP, PBNP, ANEU ####[address] [address] Electrolyte Balance 9.0 mEq/L Normal 4.0-15.0 [facility] ([place]) Comment on above: Performed By: #### C BC, GFR, ADIFF, BMP, PBNP, ANEU ####[address] [address] Glucose [Mass/Vol] 272 mg/dL High 83-110 [facility] [place]) Comment on above: Performed By: #### C BC, GFR, ADIFF, BMP, PBNP, ANEU ####[address] [address] Potassium [Moles/Vol] 4.8 mmol/L Normal 3.5-5.1 [facility] ([place]) Comment on above: Performed By: #### C BC, GFR, ADIFF, BMP, PBNP, ANEU ####[address] [address] Sodium [Moles/Vol] 140 mmol/L Normal 136-145 [facility] [place]) Comment on above: Performed By: #### C BC, GFR, ADIFF, BMP, PBNP, ANEU ####[place] [address] Urea nitrogen [Mass/Vol] 126 mg/dL High 7-18 [facility] ([place]) Comment on above: Performed By: #### C BC, GFR, ADIFF, BMP, PBNP, ANEU ####[place] [address] CBCon 10-31-2022 Erythrocyte distribution width (RBC) [Ratio] 15.0 % High 11.5-14.5 [facility] ([place]) Comment on above: Performed By: #### C BC, GFR, ADIFF, BMP, PBNP, ANEU ####[place] [address] Hematocrit (Bld) [Volume fraction] 25.1 % Low 42.0-52.0 [facility] ([place]) Comment on above: Performed By: #### C BC, GFR, ADIFF, BMP, PBNP, ANEU ####[place] [address] Hgb 8.4 G/dL Low 14.0-18.0 [facility] ([place]) Comment on above: Performed By: #### C BC, GFR, ADIFF, BMP, PBNP, ANEU ####[place] [address] MCH (RBC) [Entitic mass] 30.2 pg Normal 27.0-31.2 [facility] ([place]) Comment on above: Performed By: #### C BC, GFR, ADIFF, BMP, PBNP, ANEU ####[place] [address] MCHC 33.4 G/dL Normal 31.8-35.4 [facility] ([place]) Comment on above: Performed By: #### C BC, GFR, ADIFF, BMP, PBNP, ANEU ####[place] [address] MCV (RBC) [Entitic vol] 90.3 fL Normal 80.0-94.0 [facility] ([place]) Comment on above: Performed By: #### C BC, GFR, ADIFF, BMP, PBNP, ANEU ####[place] [address] Platelet 192 10 3/mcL Normal 130-400 [facility] ([place]) Comment on above: Performed By: #### C BC, GFR, ADIFF, BMP, PBNP, ANEU ####[place] [address] Platelet mean volume (Bld) [Entitic vol] 7.9 fL Normal 7.4-10.4 [facility] ([place]) Comment on above: Performed By: #### C BC, GFR, ADIFF, BMP, PBNP, ANEU ####[place] [address] RBC 2.78 10 6/mcL Low 4.04-6.13 [facility] ([place]) Comment on above: Performed By: #### C BC, GFR, ADIFF, BMP, PBNP, ANEU ####[place] [address] WBC 13.1 10 3/mcL High 4.6-10.8 [facility] ([place]) Comment on above: Performed By: #### C BC, GFR, ADIFF, BMP, PBNP, ANEU ####[address] [address] PBNPon 10-31-2022 Natriuretic peptide B (Bld) [Mass/Vol] 836 pg/mL High 0-450 [facility] ([place]) Comment on above: Result Comment: NT-p roBNP results of less than 300 pg/mL effectivelyrules out acute congestive heart failure with 99% negative predictive value. Performed By: #### C BC, GFR, ADIFF, BMP, PBNP, ANEU ####[place] [address] XR CHEST 2 VIEWSon XR CHEST 2 VIEWS Normal [facility] ([place]) .GFRon 10-24-2022 GFR 34 ml/min/1.73sqm Normal [facility] ([place]) Comment on above: Result Comment: GFR Population mean for , Non- Americans Ages 20-29 = 116 mL/min/1.73 sq.m. Ages 30-39 = 107 mL/min/1.73 sq.m. Ages 40-49 = 99 mL/min/1.73 sq.m. Ages 50-59 = 93 mL/min/1.73 sq.m. Ages 60-69 = 85 mL/min/1.73 sq.m. Ages 70+ = 75 mL/min/1.73 sq.m.Chronic Kidney Disease: Less than 60 mL/min/1.73 square metersEnd Stage Renal Disease: Less than 15 mL/min/1.73 square meters Performed By: #### C MP, PBNP, GFR ####[address] [place], [place] [address] GFR Non- 28 ml/min/1.73sqm Normal [facility] ([place]) Comment on above: Result Comment: GFR Population mean for , Non- Americans Ages 20-29 = 116 mL/min/1.73 sq.m. Ages 30-39 = 107 mL/min/1.73 sq.m. Ages 40-49 = 99 mL/min/1.73 sq.m. Ages 50-59 = 93 mL/min/1.73 sq.m. Ages 60-69 = 85 mL/min/1.73 sq.m. Ages 70+ = 75 mL/min/1.73 sq.m.Chronic Kidney Disease: Less than 60 mL/min/1.73 square metersEnd Stage Renal Disease: Less than 15 mL/min/1.73 square meters Performed By: #### C MP, PBNP, GFR ####[address] [place], [place] [address] [facility] Albumin Level 3.6 G/dL Normal 3.4-4.8 [facility] ([place]) Comment on above: Performed By: #### C MP, PBNP, GFR ####[address] [place], [place] [address] Albumin/Globulin [Mass ratio] 0.9 {ratio} Low 1.1-2.5 [facility] ([place]) Comment on above: Performed By: #### C MP, PBNP, GFR ####[address] [place], [place] [address] ALP [Catalytic activity/Vol] 80 U/L Normal 40-135 [facility] ([place]) Comment on above: Performed By: #### C MP, PBNP, GFR ####[address] [place], [place] [address] ALT [Catalytic activity/Vol] 20 U/L Normal 16-63 [facility] ([place]) Comment on above: Performed By: #### C MP, PBNP, GFR ####[address] [place], [place] [address] AST [Catalytic activity/Vol] 21 U/L Normal 10-40 [facility] ([place]) Comment on above: Performed By: #### C MP, PBNP, GFR ####[address] [place], [place] [address] Bili Total 0.7 mg/dL Normal 0.2-1.0 [facility] ([place]) Comment on above: Result Comment: Use of this assay is not recommended for patients undergoing treatment with eltrombopag due to the potential for falsely elevated results. Performed By: #### C MP, PBNP, GFR ####[address] [place], [place] [address] BUN/Creatinine Ratio 36 ratio High 7-27 [facility] ([place]) Comment on above: Performed By: #### C MP, PBNP, GFR ####[address] [place], [place] [address] Calcium [Mass/Vol] 10.0 mg/dL Normal 8.4-10.2 [facility] ([place]) Comment on above: Performed By: #### C MP, PBNP, GFR ####[address] [place], [place] [address] Chloride [Moles/Vol] 102 mmol/L Normal 98-107 [facility] ([place]) Comment on above: Performed By: #### C MP, PBNP, GFR ####[address] [place], [place] [address] CO2 [Moles/Vol] 32 mmol/L High 23-31 [facility] ([place]) Comment on above: Performed By: #### C MP, PBNP, GFR ####[address] [place], [place] [address] Creatinine [Mass/Vol] 2.22 mg/dL High 0.70-1.30 [facility] ([place]) Comment on above: Performed By: #### C MP, PBNP, GFR ####[address] [place], [place] [address] Electrolyte Balance 9.0 mEq/L Normal 4.0-15.0 [facility] ([place]) Comment on above: Performed By: #### C MP, PBNP, GFR ####[address] [place], [place] [address] Globulin 3.9 G/dL Normal [facility] ([place]) Comment on above: Performed By: #### C MP, PBNP, GFR ####[address] [place], [place] [address] Glucose [Mass/Vol] 127 mg/dL High 83-110 [facility] ([place]) Comment on above: Performed By: #### C MP, PBNP, GFR ####[address] [place], [place] [address] Potassium [Moles/Vol] 4.8 mmol/L Normal 3.5-5.1 [facility] ([place]) Comment on above: Performed By: #### C MP, PBNP, GFR ####[address] [place], [place] [address] Sodium [Moles/Vol] 143 mmol/L Normal 136-145 [facility] ([place]) Comment on above: Performed By: #### C MP, PBNP, GFR ####[address] [place], [place] [address] Total Protein 7.5 G/dL Normal 6.4-8.2 [facility] ([place]) Comment on above: Performed By: #### C MP, PBNP, GFR ####[address] [place], [place] [address] Urea nitrogen [Mass/Vol] 80 mg/dL High 7-18 [facility] ([place]) Comment on above: Performed By: #### C MP, PBNP, GFR ####[address] [place], [place] [address] LABORATORYOrdered By: SYSTEM SYSTEM on 10-24-2022 Albumin BCP dye [Mass/Vol] 3.6 G/dL Invalid Interpretation Code 3.4 - 4.8 G/dL AO ADM SS Albumin/Globulin [Mass ratio] 0.9 {ratio} Invalid Interpretation Code 1.1 - 2.5 ratio AO ADM SS ALP [Catalytic activity/Vol] 80 U/L Invalid Interpretation Code 40 - 135 U/L AO ADM SS ALT With P-5'-P [Catalytic activity/Vol] 20 U/L Invalid Interpretation Code 16 - 63 U/L AO ADM SS AST With P-5'-P [Catalytic activity/Vol] 21 U/L Invalid Interpretation Code 10 - 40 U/L AO ADM SS Bilirubin [Mass/Vol] 0.7 mg/dL Invalid Interpretation Code 0.2 - 1.0 mg/dL AO ADM SS Comment on above: Interpretive Data: U se of this assay is not recommended for patients undergoing treatment with eltrombopag due to the potential for falsely elevated results. Calcium [Mass/Vol] 10.0 mg/dL Invalid Interpretation Code 8.4 - 10.2 mg/dL AO ADM SS Chloride [Moles/Vol] 102 mmol/L Invalid Interpretation Code 98 - 107 mmol/L AO ADM SS CO2 [Moles/Vol] 32 mmol/L Invalid Interpretation Code 23 - 31 mmol/L AO ADM SS Creatinine [Mass/Vol] 2.22 mg/dL Invalid Interpretation Code 0.70 - 1.30 mg/dL AO ADM SS Electrolyte Balance 9.0 mEq/L Invalid Interpretation Code 4.0 - 15.0 mEq/L AO ADM SS GFR/1.73 sq M.predicted among blacks MDRD (S/P/Bld) [Vol rate/Area] 34 ml/min/1.73sqm Invalid Interpretation Code AO Chemistry S Comment on above: Interpretive Data: GFR Population mean for , Non- Americans Ages 20-29 = 116 mL/min/1.73 sq.m. Ages 30-39 = 107 mL/min/1.73 sq.m. Ages 40-49 = 99 mL/min/1.73 sq.m. Ages 50-59 = 93 mL/min/1.73 sq.m. Ages 60-69 = 85 mL/min/1.73 sq.m. Ages 70+ = 75 mL/min/1.73 sq.m. Chronic Kidney Disease: Less than 60 mL/min/1.73 square meters End Stage Renal Disease: Less than 15 mL/min/1.73 square meters GFR/1.73 sq M.predicted among non-blacks MDRD (S/P/Bld) [Vol rate/Area] 28 ml/min/1.73sqm Invalid Interpretation Code AO Chemistry S Comment on above: Interpretive Data: GFR Population mean for , Non- Americans Ages 20-29 = 116 mL/min/1.73 sq.m. Ages 30-39 = 107 mL/min/1.73 sq.m. Ages 40-49 = 99 mL/min/1.73 sq.m. Ages 50-59 = 93 mL/min/1.73 sq.m. Ages 60-69 = 85 mL/min/1.73 sq.m. Ages 70+ = 75 mL/min/1.73 sq.m. Chronic Kidney Disease: Less than 60 mL/min/1.73 square meters End Stage Renal Disease: Less than 15 mL/min/1.73 square meters Globulin 3.9 G/dL Invalid Interpretation Code AO ADM SS Glucose [Mass/Vol] 127 mg/dL Invalid Interpretation Code 83 - 110 mg/dL AO ADM SS Natriuretic peptide.B prohormone N-Terminal [Mass/Vol] 779 pg/mL Invalid Interpretation Code 0 - 450 pg/mL AO ADM SS Comment on above: Interpretive Data: N T-proBNP results of less than 300 pg/mL effectively rules out acute congestive heart failure with 99% negative predictive value. Potassium [Moles/Vol] 4.8 mmol/L Invalid Interpretation Code 3.5 - 5.1 mmol/L AO ADM SS Protein [Mass/Vol] 7.5 G/dL Invalid Interpretation Code 6.4 - 8.2 G/dL AO ADM SS Sodium [Moles/Vol] 143 mmol/L Invalid Interpretation Code 136 - 145 mmol/L AO ADM SS Urea nitrogen [Mass/Vol] 80 mg/dL Invalid Interpretation Code 7 - 18 mg/dL AO ADM SS Urea nitrogen/Creatinine [Mass ratio] 36 ratio Invalid Interpretation Code 7 - 27 ratio AO ADM SS PBNPon 10-24-2022 Natriuretic peptide B (Bld) [Mass/Vol] 779 pg/mL High 0-450 [facility] ([place]) Comment on above: Result Comment: NT-p roBNP results of less than 300 pg/mL effectivelyrules out acute congestive heart failure with 99% negative predictive value. Performed By: #### C MP, PBNP, GFR ####[place] [address] [place], [place] [address] Absolute lymphocyte countOrd ered By: Eyal Calderon on 10-22-2022 Lymphocytes Auto (Unsp spec) [#/Vol] 1.35 10*3/uL 0.83-4.51 [facility] Basophil percentageOrdered B y: Eyal Calderon on 10-22-2022 Basophils/100 WBC (Bld) 0.6 % 0-1 [facility] Chloride [Moles/Vol] 105 mmol/L 98-107 [facility] Eosinophils/100 WBC (Bld) 6.9 % 0-5 [facility] Glucose [Mass/Vol] 171 mg/dL 74-106 [facility] Comment on above: Fasting Glucose resu lt greater than or equal to 126 mg/dL suggests DIABETES MELLITUS per A.D.A. criteria. Neutrophils (Bld) [#/Vol] 4.0 10*3/uL 2.0-7.7 [facility] Neutrophils/100 WBC (Bld) 63.1 % 47-70 [facility] Potassium [Moles/Vol] 4.5 mmol/L 3.5-5.1 [facility] Sodium [Moles/Vol] 143 mmol/L 136-145 [facility] WBC (Bld) [#/Vol] 6.3 10*3/uL 4.4-11.0 [facility] Blood erythrocytes count (nu mber/volume)Ordered By: Eyal Calderon on 10-22-2022 RBC (Bld) [#/Vol] 3.02 10*6/uL 4.6-6.2 [facility] Blood hemoglobin measurement (mass/volume)Ordered By: Eyal Calderon on 10-22-2022 Hemoglobin (Bld) [Mass/Vol] 9.0 g/dL 13.0-16.5 [facility] Blood lymphocytes/100 leukoc ytesOrdered By: Eyal Calderon on 10-22-2022 Lymphocytes/100 WBC (Bld) 21.3 % 19-41 [facility] Blood monocytes/100 leukocyt esOrdered By: Eyal Calderon on 10-22-2022 Monocytes/100 WBC (Bld) 7.9 % 0-10 [facility] Blood platelet mean volumeOr dered By: Eyal Calderon on 10-22-2022 Platelet mean volume (Bld) [Entitic vol] 10.9 fL 6.2-12.0 [facility] Determination of erythrocyte mean corpuscular volume (MCV)Ordered By: Eyal Calderon on 10-22-2022 MCV (RBC) [Entitic vol] 94.4 fL 80-94 [facility] Hematocrit Auto (Bld) [Volum e fraction]Ordered By: Eyal Calderon on 10-22-2022 Hematocrit (Bld) [Volume fraction] 28.5 % 40-54 [facility] Laboratory - Chemistry and C hemistry - challengeOrdered By: Eyal Calderon on 10-22-2022 CO2 [Moles/Vol] 33.0 mmol/L 21.0-32.0 [facility] Natriuretic peptide B (Bld) [Mass/Vol] 47.9 pg/mL 0-100 [facility] Urea nitrogen/Creatinine [Mass ratio] 36.4 mg/mg 10-20 [facility] - Hematology and Cell countsOrdered By: Eyal Calderon on 10-22-2022 Erythrocyte distribution width (RBC) [Entitic vol] 47.1 fL 35.1-43.9 [facility] Erythrocyte distribution width (RBC) [Ratio] 13.8 % 11.6-14.6 [facility] Immature granulocytes/100 WBC (Bld) 0.200 % 0.0-0.9 [facility] Comment on above: IG% - Immature Granu locytes (promyelocytes, myelocytes and metamyelocytes) > 1% indicates that a LEFT SHIFT is Present. MCH (RBC) [Entitic mass] 29.8 pg 27.0-32.0 [facility] Nucleated RBC/100 WBC (Bld) [Ratio] 0 % 0-[address] [facility] (RBC) [Mass/Vol]Or dered By: Eyal Calderon on 10-22-2022 MCHC (RBC) [Mass/Vol] 31.6 g/dL 32-36 [facility] No Panel InformationOrdered By: Eyal Calderon on 10-22-2022 D-Dimer Quantitative (PE/DVT) 0.62 FEU/ug/m 0.27-0.49 [facility] Comment on above: D-Dimer ELEVATED (>0 .49): Additional studies and clinicalassessments are indicated to conclude diagnosis of:Deep Vein Thrombosis (DVT) or Pulmonary Embolism (PE)CRITICAL VALUE VERIFIED. CALLED TO AYAZ [id number] Roc Angel.RESULTS READ BACK BY SAME . Estimated Creatinine Clearance Calc 24.59 ml/min [facility] Estimated GFR (MDRD) Amer 42 mL/min >60 [facility] Comment on above: GFR Calc Estimated GFR (MDRD) Non-Af Amer 34 mL/min >60 [facility] Comment on above: Non- GFR Calc Troponin I High Sensitivity 24 pg/mL 3.0-78.0 [facility] Comment on above: Please Note: New Arti t Units and Gender Specific Reference Ranges. For more information see Policy Stat Procedure [place] High Sensitivity Troponin (TNIH) and attachments. Platelets bldOrdered By: Nora Calderon on 10-22-2022 Platelets (Bld) [#/Vol] 116 10*3/uL 150-450 [facility] Serum or plasma calcium elmira urement (mass/volume)Ordered By: Eyal Calderon on 10-22-2022 Calcium [Mass/Vol] 9.4 mg/dL 8.5-10.1 [facility] Serum or plasma creatinine m easurement (mass/volume)Ordered By: Eyal Calderon on 10-22-2022 Creatinine [Mass/Vol] 1.98 mg/dL 0.70-1.30 [facility] Comment on above: The validity of the calculated GFR & GFRAA in patients over 70 years has not been determined. Clinical correlation is essential. Serum or plasma urea nitroge n measurement (mass/volume)Ordered By: Eyal Calderon on 10-22-2022 Urea nitrogen [Mass/Vol] 72 mg/dL 7-18 [facility] Thin prep Papanicolaou smear with manual screeningOrdered By: Eyal Calderon on 10-22-2022 Thin prep Papanicolaou smear with manual screening 5 5-15 [facility] XR CHEST 2 VIEWSon XR CHEST 2 VIEWS Normal [facility] ([place]) .Auto Diffon 10-19-2022 Basophil, Absolute 0.1 10 3/mcL Normal 0.0-0.2 [facility] ([place]) Comment on above: Performed By: #### C BC, ANEU, CMP, URIC, GFR, PBNP, ADIFF ####[address] [place], [place] [address] Basophils/100 WBC (Bld) 0.9 % Normal 0.0-2.5 [facility] ([place]) Comment on above: Performed By: #### C BC, ANEU, CMP, URIC, GFR, PBNP, ADIFF ####[address] [place], [place] [address] Eosinophil, Absolute 0.3 10 3/mcL Normal 0.0-0.4 [facility] ([place]) Comment on above: Performed By: #### C BC, ANEU, CMP, URIC, GFR, PBNP, ADIFF ####[address] [place], [place] [address] Eosinophils/100 WBC (Bld) 5.7 % Normal 0.0-7.0 [facility] ([place]) Comment on above: Performed By: #### C BC, ANEU, CMP, URIC, GFR, PBNP, ADIFF ####[address] [place], [place] [address] Lymphocyte, Absolute 1.4 10 3/mcL Normal 0.8-3.9 [facility] ([place]) Comment on above: Performed By: #### C BC, ANEU, CMP, URIC, GFR, PBNP, ADIFF ####[address] [place], [place] [address] Lymphocytes/100 WBC (Bld) 25.2 % Normal 10.0-50.0 [facility] ([place]) Comment on above: Performed By: #### C BC, ANEU, CMP, URIC, GFR, PBNP, ADIFF ####[address] [place], [place] [address] Monocyte, Absolute 0.5 10 3/mcL Normal 0.2-1.0 [facility] ([place]) Comment on above: Performed By: #### C BC, ANEU, CMP, URIC, GFR, PBNP, ADIFF ####[address] [place], [place] [address] Monocytes/100 WBC (Bld) 8.6 % Normal 1.7-13.0 [facility] ([place]) Comment on above: Performed By: #### C BC, ANEU, CMP, URIC, GFR, PBNP, ADIFF ####[address] [place], [place] [address] Neutrophils/100 WBC (Bld) 59.6 % Normal 37.0-80.0 [facility] ([place]) Comment on above: Performed By: #### C BC, ANEU, CMP, URIC, GFR, PBNP, ADIFF ####[address] [place], [place] [address] .GFRon 10-19-2022 GFR 44 ml/min/1.73sqm Normal [facility] ([place]) Comment on above: Result Comment: GFR Population mean for , Non- Americans Ages 20-29 = 116 mL/min/1.73 sq.m. Ages 30-39 = 107 mL/min/1.73 sq.m. Ages 40-49 = 99 mL/min/1.73 sq.m. Ages 50-59 = 93 mL/min/1.73 sq.m. Ages 60-69 = 85 mL/min/1.73 sq.m. Ages 70+ = 75 mL/min/1.73 sq.m.Chronic Kidney Disease: Less than 60 mL/min/1.73 square metersEnd Stage Renal Disease: Less than 15 mL/min/1.73 square meters Performed By: #### C BC, ANEU, CMP, URIC, GFR, PBNP, ADIFF ####[address] [place], [place] [address] GFR Non- 36 ml/min/1.73sqm Normal [facility] ([place]) Comment on above: Result Comment: GFR Population mean for , Non- Americans Ages 20-29 = 116 mL/min/1.73 sq.m. Ages 30-39 = 107 mL/min/1.73 sq.m. Ages 40-49 = 99 mL/min/1.73 sq.m. Ages 50-59 = 93 mL/min/1.73 sq.m. Ages 60-69 = 85 mL/min/1.73 sq.m. Ages 70+ = 75 mL/min/1.73 sq.m.Chronic Kidney Disease: Less than 60 mL/min/1.73 square metersEnd Stage Renal Disease: Less than 15 mL/min/1.73 square meters Performed By: #### C BC, ANEU, CMP, URIC, GFR, PBNP, ADIFF ####[address] [place], [place] [address] .NEUABSon 10-19-2022 Neutrophil, Absolute 3.4 10 3/mcL Normal 2.9-6.2 [facility] ([place]) Comment on above: Performed By: #### C BC, ANEU, CMP, URIC, GFR, PBNP, ADIFF ####[address] [place], [place] [address] CBCon 10-19-2022 Erythrocyte distribution width (RBC) [Ratio] 14.7 % High 11.5-14.5 [facility] ([place]) Comment on above: Performed By: #### C BC, ANEU, CMP, URIC, GFR, PBNP, ADIFF ####[address] [place], [place] [address] Hematocrit (Bld) [Volume fraction] 28.1 % Low 42.0-52.0 [facility] ([place]) Comment on above: Performed By: #### C BC, ANEU, CMP, URIC, GFR, PBNP, ADIFF ####[address] [place], [place] [address] Hgb 9.3 G/dL Low 14.0-18.0 [facility] ([place]) Comment on above: Performed By: #### C BC, ANEU, CMP, URIC, GFR, PBNP, ADIFF ####[address] [place], [place] [address] MCH (RBC) [Entitic mass] 29.7 pg Normal 27.0-31.2 [facility] ([place]) Comment on above: Performed By: #### C BC, ANEU, CMP, URIC, GFR, PBNP, ADIFF ####[address] [place], [place] [address] MCHC 33.2 G/dL Normal 31.8-35.4 [facility] ([place]) Comment on above: Performed By: #### C BC, ANEU, CMP, URIC, GFR, PBNP, ADIFF ####[address] [place], [place] [address] MCV (RBC) [Entitic vol] 89.5 fL Normal 80.0-94.0 [facility] ([place]) Comment on above: Performed By: #### C BC, ANEU, CMP, URIC, GFR, PBNP, ADIFF ####[address] [place], [place] [address] Platelet 118 10 3/mcL Low 130-400 [facility] ([place]) Comment on above: Performed By: #### C BC, ANEU, CMP, URIC, GFR, PBNP, ADIFF ####[address] [place], [place] [address] Platelet mean volume (Bld) [Entitic vol] 8.6 fL Normal 7.4-10.4 [facility] ([place]) Comment on above: Performed By: #### C BC, ANEU, CMP, URIC, GFR, PBNP, ADIFF ####[address] [place], [place] [address] RBC 3.14 10 6/mcL Low 4.04-6.13 [facility] ([place]) Comment on above: Performed By: #### C BC, ANEU, CMP, URIC, GFR, PBNP, ADIFF ####[address] [place] [id number] WBC 5.6 10 3/mcL Normal 4.6-10.8 [facility] ([place]) Comment on above: Performed By: #### C BC, ANEU, CMP, URIC, GFR, PBNP, ADIFF ####[address] [place], [place] [address] CMPon 10-19-2022 Albumin Level 3.3 G/dL Low 3.4-4.8 [facility] ([place]) Comment on above: Performed By: #### C BC, ANEU, CMP, URIC, GFR, PBNP, ADIFF ####[address] [place], [place] [address] Albumin/Globulin [Mass ratio] 0.9 {ratio} Low 1.1-2.5 [facility] ([place]) Comment on above: Performed By: #### C BC, ANEU, CMP, URIC, GFR, PBNP, ADIFF ####[address] [place], [place] [address] ALP [Catalytic activity/Vol] 71 U/L Normal 40-135 [facility] ([place]) Comment on above: Performed By: #### C BC, ANEU, CMP, URIC, GFR, PBNP, ADIFF ####[address] [place], [place] [address] ALT [Catalytic activity/Vol] 21 U/L Normal 16-63 [facility] ([place]) Comment on above: Performed By: #### C BC, ANEU, CMP, URIC, GFR, PBNP, ADIFF ####[address] [place], [place] [address] AST [Catalytic activity/Vol] 16 U/L Normal 10-40 [facility] ([place]) Comment on above: Performed By: #### C BC, ANEU, CMP, URIC, GFR, PBNP, ADIFF ####[address] [place], [place] [address] Bili Total 0.4 mg/dL Normal 0.2-1.0 [facility] ([place]) Comment on above: Result Comment: Use of this assay is not recommended for patients undergoing treatment with eltrombopag due to the potential for falsely elevated results. Performed By: #### C BC, ANEU, CMP, URIC, GFR, PBNP, ADIFF ####[address] [place], [place] [address] BUN/Creatinine Ratio 36 ratio High 7-27 [facility] ([place]) Comment on above: Performed By: #### C BC, ANEU, CMP, URIC, GFR, PBNP, ADIFF ####[address] [place], [place] [address] Calcium [Mass/Vol] 9.3 mg/dL Normal 8.4-10.2 [facility] ([place]) Comment on above: Performed By: #### C BC, ANEU, CMP, URIC, GFR, PBNP, ADIFF ####[address] [place], [place] [address] Chloride [Moles/Vol] 106 mmol/L Normal 98-107 [facility] ([place]) Comment on above: Performed By: #### C BC, ANEU, CMP, URIC, GFR, PBNP, ADIFF ####[address] [place], [place] [address] CO2 [Moles/Vol] 38 mmol/L High 23-31 [facility] ([place]) Comment on above: Performed By: #### C BC, ANEU, CMP, URIC, GFR, PBNP, ADIFF ####[address] [place], [place] [address] Creatinine [Mass/Vol] 1.81 mg/dL High 0.70-1.30 [facility] ([place]) Comment on above: Performed By: #### C BC, ANEU, CMP, URIC, GFR, PBNP, ADIFF ####[address] [place], [place] [address] Electrolyte Balance 1.0 mEq/L Low 4.0-15.0 [facility] ([place]) Comment on above: Performed By: #### C BC, ANEU, CMP, URIC, GFR, PBNP, ADIFF ####[address] [place], [place] [address] Globulin 3.8 G/dL Normal [facility] ([place]) Comment on above: Performed By: #### C BC, ANEU, CMP, URIC, GFR, PBNP, ADIFF ####[address] [place], [place] [address] Glucose [Mass/Vol] 108 mg/dL Normal 83-110 [facility] ([place]) Comment on above: Performed By: #### C BC, ANEU, CMP, URIC, GFR, PBNP, ADIFF ####[address] [place], [place] [address] Potassium [Moles/Vol] 5.0 mmol/L Normal 3.5-5.1 [facility] ([place]) Comment on above: Performed By: #### C BC, ANEU, CMP, URIC, GFR, PBNP, ADIFF ####[address] [place], [place] [address] Sodium [Moles/Vol] 145 mmol/L Normal 136-145 [facility] ([place]) Comment on above: Performed By: #### C BC, ANEU, CMP, URIC, GFR, PBNP, ADIFF ####[address] [place], [place] [address] Total Protein 7.1 G/dL Normal 6.4-8.2 [facility] ([place]) Comment on above: Performed By: #### C BC, ANEU, CMP, URIC, GFR, PBNP, ADIFF ####[address] [place], [place] [address] Urea nitrogen [Mass/Vol] 65 mg/dL High 7-18 [facility] ([place]) Comment on above: Performed By: #### C BC, ANEU, CMP, URIC, GFR, PBNP, ADIFF ####[address] [place], [place] [address] PBNPon 10-19-2022 Natriuretic peptide B (Bld) [Mass/Vol] 750 pg/mL High 0-450 [facility] ([place]) Comment on above: Result Comment: NT-p roBNP results of less than 300 pg/mL effectivelyrules out acute congestive heart failure with 99% negative predictive value. Performed By: #### C BC, ANEU, CMP, URIC, GFR, PBNP, ADIFF ####[address] [place], [place] [address] URICon 10-19-2022 Uric Acid Lvl 9.4 mg/dL High 3.5-7.2 [facility] ([place]) Comment on above: Performed By: #### C BC, ANEU, CMP, URIC, GFR, PBNP, ADIFF ####[address] [place], [place] [address] LABORATORYOrdered By: SYSTEM SYSTEM on 06-16-2022 Albumin BCP dye [Mass/Vol] 3.4 G/dL Invalid Interpretation Code 3.4 - 4.8 G/dL AO ADM SS Albumin/Globulin [Mass ratio] 0.9 {ratio} Invalid Interpretation Code 1.1 - 2.5 ratio AO ADM SS ALP [Catalytic activity/Vol] 71 U/L Invalid Interpretation Code 40 - 135 U/L AO ADM SS ALT With P-5'-P [Catalytic activity/Vol] 31 U/L Invalid Interpretation Code 16 - 63 U/L AO ADM SS AST With P-5'-P [Catalytic activity/Vol] 24 U/L Invalid Interpretation Code 10 - 40 U/L AO ADM SS Bilirubin [Mass/Vol] 0.6 mg/dL Invalid Interpretation Code 0.2 - 1.0 mg/dL AO ADM SS Calcium [Mass/Vol] 10.2 mg/dL Invalid Interpretation Code 8.4 - 10.2 mg/dL AO ADM SS Chloride [Moles/Vol] 103 mmol/L Invalid Interpretation Code 98 - 107 mmol/L AO ADM SS CO2 [Moles/Vol] 34 mmol/L Invalid Interpretation Code 23 - 31 mmol/L AO ADM SS Creatinine [Mass/Vol] 1.67 mg/dL Invalid Interpretation Code 0.70 - 1.30 mg/dL AO ADM SS Electrolyte Balance 7.0 mEq/L Invalid Interpretation Code 4.0 - 15.0 mEq/L AO ADM SS GFR 48 ml/min/1.73sqm Invalid Interpretation Code AO Chemistry S GFR Non- 39 ml/min/1.73sqm Inval id Interpretation Code AO Chemistry S Globulin 3.6 G/dL Invalid Interpretation Code AO ADM SS Glucose [Mass/Vol] 179 mg/dL Invalid Interpretation Code 83 - 110 mg/dL AO ADM SS Natriuretic peptide.B prohormone N-Terminal [Mass/Vol] 895 pg/mL Invalid Interpretation Code 0 - 450 pg/mL AO ADM SS Potassium [Moles/Vol] 5.0 mmol/L Invalid Interpretation Code 3.5 - 5.1 mmol/L AO ADM SS Protein [Mass/Vol] 7.0 G/dL Invalid Interpretation Code 6.4 - 8.2 G/dL AO ADM SS Sodium [Moles/Vol] 144 mmol/L Invalid Interpretation Code 136 - 145 mmol/L AO ADM SS Urea nitrogen [Mass/Vol] 50 mg/dL Invalid Interpretation Code 7 - 18 mg/dL AO ADM SS Urea nitrogen/Creatinine [Mass ratio] 30 ratio Invalid Interpretation Code 7 - 27 ratio AO ADM SS LABORATORYOrdered By: Abigail Bailye on 06-16-2022 Basophil, Absolute 0.1 103/mcL Invalid Interpretation Code 0.0 - 0.2 10^3/mcL AO Workflow SS Basophils/100 WBC (Bld) 1.0 % Invalid Interpretation Code 0.0 - 2.5 % AO Workflow SS Eosinophil, Absolute 0.5 103/mcL Invalid Interpretation Code 0.0 - 0.4 10^3/mcL AO Workflow SS Eosinophils/100 WBC (Bld) 7.2 % Invalid Interpretation Code 0.0 - 7.0 % AO Workflow SS Erythrocyte distribution width (RBC) [Ratio] 14.4 % Invalid Interpretation Code 11.5 - 14.5 % AO Workflow SS Hematocrit (Bld) [Volume fraction] 29.9 % Invalid Interpretation Code 42.0 - 52.0 % AO Workflow SS Hemoglobin (Bld) [Mass/Vol] 10.0 G/dL Invalid Interpretation Code 14.0 - 18.0 G/dL AO Workflow SS Lymphocyte, Absolute 1.6 103/mcL Invalid Interpretation Code 0.8 - 3.9 10^3/mcL AO Workflow SS Lymphocytes/100 WBC (Bld) 24.0 % Invalid Interpretation Code 10.0 - 50.0 % AO Workflow SS MCH (RBC) [Entitic mass] 29.9 pg Invalid Interpretation Code 27.0 - 31.2 pg AO Workflow SS MCHC 33.4 G/dL Invalid Interpretation Code 31.8 - 35.4 G/dL AO Workflow SS MCV (RBC) [Entitic vol] 89.5 fL Invalid Interpretation Code 80.0 - 94.0 fL AO Workflow SS Monocyte, Absolute 0.6 103/mcL Invalid Interpretation Code 0.2 - 1.0 10^3/mcL AO Workflow SS Monocytes/100 WBC (Bld) 9.0 % Invalid Interpretation Code 1.7 - 13.0 % AO Workflow SS Neutrophil, Absolute 3.8 103/mcL Invalid Interpretation Code 2.9 - 6.2 10^3/mcL AO Workflow SS Neutrophils/100 WBC (Bld) 58.8 % Invalid Interpretation Code 37.0 - 80.0 % AO Workflow SS Platelet mean volume (Bld) [Entitic vol] 9.1 fL Invalid Interpretation Code 7.4 - 10.4 fL AO Workflow SS Platelets (Bld) [#/Vol] 131 103/mcL Invalid Interpretation Code 130 - 400 10^3/mcL AO Workflow SS RBC (Bld) [#/Vol] 3.34 106/mcL Invalid Interpretation Code 4.04 - 6.13 10^6/mcL AO Workflow SS WBC (Bld) [#/Vol] 6.5 103/mcL Invalid Interpretation Code 4.6 - 10.8 10^3/mcL AO Workflow SS LABORATORYOrdered By: SYSTEM SYSTEM on 06-09-2022 Albumin BCP dye [Mass/Vol] 3.2 G/dL Invalid Interpretation Code 3.4 - 4.8 G/dL AO ADM SS Albumin/Globulin [Mass ratio] 0.9 {ratio} Invalid Interpretation Code 1.1 - 2.5 ratio AO ADM SS ALP [Catalytic activity/Vol] 74 U/L Invalid Interpretation Code 40 - 135 U/L AO ADM SS ALT With P-5'-P [Catalytic activity/Vol] 33 U/L Invalid Interpretation Code 16 - 63 U/L AO ADM SS AST With P-5'-P [Catalytic activity/Vol] 23 U/L Invalid Interpretation Code 10 - 40 U/L AO ADM SS Bilirubin [Mass/Vol] 0.4 mg/dL Invalid Interpretation Code 0.2 - 1.0 mg/dL AO ADM SS Calcium [Mass/Vol] 8.8 mg/dL Invalid Interpretation Code 8.4 - 10.2 mg/dL AO ADM SS Chloride [Moles/Vol] 105 mmol/L Invalid Interpretation Code 98 - 107 mmol/L AO ADM SS CO2 [Moles/Vol] 35 mmol/L Invalid Interpretation Code 23 - 31 mmol/L AO ADM SS Creatinine [Mass/Vol] 1.93 mg/dL Invalid Interpretation Code 0.70 - 1.30 mg/dL AO ADM SS Electrolyte Balance 5.0 mEq/L Invalid Interpretation Code 4.0 - 15.0 mEq/L AO ADM SS GFR 40 ml/min/1.73sqm Invalid Interpretation Code AO Chemistry S GFR Non- 33 ml/min/1.73sqm Inval id Interpretation Code AO Chemistry S Globulin 3.6 G/dL Invalid Interpretation Code AO ADM SS Glucose [Mass/Vol] 165 mg/dL Invalid Interpretation Code 83 - 110 mg/dL AO ADM SS Natriuretic peptide.B prohormone N-Terminal [Mass/Vol] 571 pg/mL Invalid Interpretation Code 0 - 450 pg/mL AO ADM SS Potassium [Moles/Vol] 5.1 mmol/L Invalid Interpretation Code 3.5 - 5.1 mmol/L AO ADM SS Protein [Mass/Vol] 6.8 G/dL Invalid Interpretation Code 6.4 - 8.2 G/dL AO ADM SS Sodium [Moles/Vol] 145 mmol/L Invalid Interpretation Code 136 - 145 mmol/L AO ADM SS Urea nitrogen [Mass/Vol] 63 mg/dL Invalid Interpretation Code 7 - 18 mg/dL AO ADM SS Urea nitrogen/Creatinine [Mass ratio] 33 ratio Invalid Interpretation Code 7 - 27 ratio AO ADM SS LABORATORYOrdered By: Josue Abdi on 06-09-2022 Basophil, Absolute 0.1 103/mcL Invalid Interpretation Code 0.0 - 0.2 10^3/mcL AO Workflow SS Basophils/100 WBC (Bld) 0.8 % Invalid Interpretation Code 0.0 - 2.5 % AO Workflow SS Eosinophil, Absolute 0.4 103/mcL Invalid Interpretation Code 0.0 - 0.4 10^3/mcL AO Workflow SS Eosinophils/100 WBC (Bld) 5.4 % Invalid Interpretation Code 0.0 - 7.0 % AO Workflow SS Erythrocyte distribution width (RBC) [Ratio] 14.7 % Invalid Interpretation Code 11.5 - 14.5 % AO Workflow SS Hematocrit (Bld) [Volume fraction] 28.4 % Invalid Interpretation Code 42.0 - 52.0 % AO Workflow SS Hemoglobin (Bld) [Mass/Vol] 9.4 G/dL Invalid Interpretation Code 14.0 - 18.0 G/dL AO Workflow SS Lymphocyte, Absolute 1.7 103/mcL Invalid Interpretation Code 0.8 - 3.9 10^3/mcL AO Workflow SS Lymphocytes/100 WBC (Bld) 22.0 % Invalid Interpretation Code 10.0 - 50.0 % AO Workflow SS MCH (RBC) [Entitic mass] 29.8 pg Invalid Interpretation Code 27.0 - 31.2 pg AO Workflow SS MCHC 33.1 G/dL Invalid Interpretation Code 31.8 - 35.4 G/dL AO Workflow SS MCV (RBC) [Entitic vol] 90.0 fL Invalid Interpretation Code 80.0 - 94.0 fL AO Workflow SS Monocyte, Absolute 0.4 103/mcL Invalid Interpretation Code 0.2 - 1.0 10^3/mcL AO Workflow SS Monocytes/100 WBC (Bld) 5.7 % Invalid Interpretation Code 1.7 - 13.0 % AO Workflow SS Neutrophil, Absolute 5.1 103/mcL Invalid Interpretation Code 2.9 - 6.2 10^3/mcL AO Workflow SS Neutrophils/100 WBC (Bld) 66.1 % Invalid Interpretation Code 37.0 - 80.0 % AO Workflow SS Platelet mean volume (Bld) [Entitic vol] 8.3 fL Invalid Interpretation Code 7.4 - 10.4 fL AO Workflow SS Platelets (Bld) [#/Vol] 162 103/mcL Invalid Interpretation Code 130 - 400 10^3/mcL AO Workflow SS RBC (Bld) [#/Vol] 3.16 106/mcL Invalid Interpretation Code 4.04 - 6.13 10^6/mcL AO Workflow SS WBC (Bld) [#/Vol] 7.7 103/mcL Invalid Interpretation Code 4.6 - 10.8 10^3/mcL AO Workflow SS LABORATORYOrdered By: SYSTEM SYSTEM on 06-06-2022 Albumin BCP dye [Mass/Vol] 3.0 G/dL Invalid Interpretation Code 3.4 - 4.8 G/dL AO ADM SS Albumin/Globulin [Mass ratio] 0.9 {ratio} Invalid Interpretation Code 1.1 - 2.5 ratio AO ADM SS ALP [Catalytic activity/Vol] 76 U/L Invalid Interpretation Code 40 - 135 U/L AO ADM SS ALT With P-5'-P [Catalytic activity/Vol] 32 U/L Invalid Interpretation Code 16 - 63 U/L AO ADM SS AST With P-5'-P [Catalytic activity/Vol] 24 U/L Invalid Interpretation Code 10 - 40 U/L AO ADM SS Bilirubin [Mass/Vol] 0.4 mg/dL Invalid Interpretation Code 0.2 - 1.0 mg/dL AO ADM SS Calcium [Mass/Vol] 8.4 mg/dL Invalid Interpretation Code 8.4 - 10.2 mg/dL AO ADM SS Chloride [Moles/Vol] 107 mmol/L Invalid Interpretation Code 98 - 107 mmol/L AO ADM SS CO2 [Moles/Vol] 32 mmol/L Invalid Interpretation Code 23 - 31 mmol/L AO ADM SS Creatinine [Mass/Vol] 2.13 mg/dL Invalid Interpretation Code 0.70 - 1.30 mg/dL AO ADM SS Electrolyte Balance 8.0 mEq/L Invalid Interpretation Code 4.0 - 15.0 mEq/L AO ADM SS GFR 36 ml/min/1.73sqm Invalid Interpretation Code AO Chemistry S GFR Non- 30 ml/min/1.73sqm Inval id Interpretation Code AO Chemistry S Globulin 3.5 G/dL Invalid Interpretation Code AO ADM SS Glucose [Mass/Vol] 195 mg/dL Invalid Interpretation Code 83 - 110 mg/dL AO ADM SS Natriuretic peptide.B prohormone N-Terminal [Mass/Vol] 404 pg/mL Invalid Interpretation Code 0 - 450 pg/mL AO ADM SS Potassium [Moles/Vol] 5.1 mmol/L Invalid Interpretation Code 3.5 - 5.1 mmol/L AO ADM SS Protein [Mass/Vol] 6.5 G/dL Invalid Interpretation Code 6.4 - 8.2 G/dL AO ADM SS Sodium [Moles/Vol] 147 mmol/L Invalid Interpretation Code 136 - 145 mmol/L AO ADM SS Urea nitrogen [Mass/Vol] 75 mg/dL Invalid Interpretation Code 7 - 18 mg/dL AO ADM SS Urea nitrogen/Creatinine [Mass ratio] 35 ratio Invalid Interpretation Code 7 - 27 ratio AO ADM SS LABORATORYOrdered By: Caroline Ruiz on 06-06-2022 Basophil, Absolute 0.1 103/mcL Invalid Interpretation Code 0.0 - 0.2 10^3/mcL AO Workflow SS Basophils/100 WBC (Bld) 0.7 % Invalid Interpretation Code 0.0 - 2.5 % AO Workflow SS Eosinophil, Absolute 0.4 103/mcL Invalid Interpretation Code 0.0 - 0.4 10^3/mcL AO Workflow SS Eosinophils/100 WBC (Bld) 5.3 % Invalid Interpretation Code 0.0 - 7.0 % AO Workflow SS Erythrocyte distribution width (RBC) [Ratio] 14.1 % Invalid Interpretation Code 11.5 - 14.5 % AO Workflow SS Hematocrit (Bld) [Volume fraction] 26.5 % Invalid Interpretation Code 42.0 - 52.0 % AO Workflow SS Hemoglobin (Bld) [Mass/Vol] 9.0 G/dL Invalid Interpretation Code 14.0 - 18.0 G/dL AO Workflow SS Lymphocyte, Absolute 1.6 103/mcL Invalid Interpretation Code 0.8 - 3.9 10^3/mcL AO Workflow SS Lymphocytes/100 WBC (Bld) 20.8 % Invalid Interpretation Code 10.0 - 50.0 % AO Workflow SS MCH (RBC) [Entitic mass] 30.5 pg Invalid Interpretation Code 27.0 - 31.2 pg AO Workflow SS MCHC 34.0 G/dL Invalid Interpretation Code 31.8 - 35.4 G/dL AO Workflow SS MCV (RBC) [Entitic vol] 89.9 fL Invalid Interpretation Code 80.0 - 94.0 fL AO Workflow SS Monocyte, Absolute 0.5 103/mcL Invalid Interpretation Code 0.2 - 1.0 10^3/mcL AO Workflow SS Monocytes/100 WBC (Bld) 5.8 % Invalid Interpretation Code 1.7 - 13.0 % AO Workflow SS Neutrophil, Absolute 5.3 103/mcL Invalid Interpretation Code 2.9 - 6.2 10^3/mcL AO Workflow SS Neutrophils/100 WBC (Bld) 67.4 % Invalid Interpretation Code 37.0 - 80.0 % AO Workflow SS Platelet mean volume (Bld) [Entitic vol] 8.4 fL Invalid Interpretation Code 7.4 - 10.4 fL AO Workflow SS Platelets (Bld) [#/Vol] 174 103/mcL Invalid Interpretation Code 130 - 400 10^3/mcL AO Workflow SS RBC (Bld) [#/Vol] 2.95 106/mcL Invalid Interpretation Code 4.04 - 6.13 10^6/mcL AO Workflow SS WBC (Bld) [#/Vol] 7.8 103/mcL Invalid Interpretation Code 4.6 - 10.8 10^3/mcL AO Workflow SS Basophil percentageOrdered B y: Dr. Anders on 05-26-2022 Chloride [Moles/Vol] 98 mmol/L 98-[address] [facility] Glucose [Mass/Vol] 169 mg/dL 74-106 [facility] Comment on above: Fasting Glucose resu lt greater than or equal to 126 mg/dL suggests DIABETES MELLITUS per A.D.A. criteria. Potassium [Moles/Vol] 4.1 mmol/L 3.5-5.1 [facility] Sodium [Moles/Vol] 139 mmol/L 136-145 [facility] Glucose Glucometer (BldC) [M ass/Vol]Ordered By: Dr. Anders on 05-26-2022 Glucose [Mass/Vol] 156 mg/dL 74-106 [facility] Comment on above: MANAGEMENT OF PATIEN T CARE PER NURSING PROTOCOL Laboratory - Chemistry and C hemistry - challengeOrdered By: Dr. Anders on 05-26-2022 CO2 [Moles/Vol] 31.0 mmol/L 21.0-32.0 [facility] Urea nitrogen/Creatinine [Mass ratio] 39.6 mg/mg 10-20 [facility] No Panel InformationOrdered By: Dr. Anders on 05-26-2022 Estimated Creatinine Clearance Calc 29.31 ml/min [facility] Estimated GFR (MDRD) Amer 50 mL/min >60 [facility] Comment on above: GFR Calc Estimated GFR (MDRD) Non-Af Amer 41 mL/min >60 [facility] Comment on above: Non- GFR Calc Serum or plasma calcium elmira urement (mass/volume)Ordered By: Dr. Anders on 05-26-2022 Calcium [Mass/Vol] 9.5 mg/dL 8.5-10.1 [facility] Serum or plasma creatinine m easurement (mass/volume)Ordered By: Dr. Anders on 05-26-2022 Creatinine [Mass/Vol] 1.69 mg/dL 0.70-1.30 [facility] Comment on above: The validity of the calculated GFR & GFRAA in patients over 70 years has not been determined. Clinical correlation is essential. Serum or plasma urea nitroge n measurement (mass/volume)Ordered By: Dr. Anders on 05-26-2022 Urea nitrogen [Mass/Vol] 67 mg/dL 7-18 [facility] Thin prep Papanicolaou smear with manual screeningOrdered By: Dr. Anders on 05-26-2022 Thin prep Papanicolaou smear with manual screening 10 5-15 [facility] Absolute lymphocyte countOrd ered By: Dr. Pardo on 05-25-2022 Lymphocytes Auto (Unsp spec) [#/Vol] 1.47 10*3/uL 0.83-4.51 [facility] Basophil percentageOrdered B y: Dr. Pardo on 05-25-2022 Basophils/100 WBC (Bld) 0.3 % 0-1 [facility] Bilirubin [Mass/Vol] 1.20 mg/dL 0.20-1.00 [facility] Comment on above: For patients on eltr ombopag therapy, use of Dimension [place] TBIL is not recommended. Eosinophils/100 WBC (Bld) 1.7 % 0-5 [facility] Neutrophils (Bld) [#/Vol] 9.2 10*3/uL 2.0-7.7 [facility] Neutrophils/100 WBC (Bld) 78.7 % 47-70 [facility] Protein [Mass/Vol] 6.9 g/dL 6.4-8.2 [facility] WBC (Bld) [#/Vol] 11.7 10*3/uL 4.4-11.0 [facility] Blood erythrocytes count (nu mber/volume)Ordered By: Dr. Pardo on 05-25-2022 RBC (Bld) [#/Vol] 3.00 10*6/uL 4.6-6.2 [facility] Blood hemoglobin measurement (mass/volume)Ordered By: Dr. Pardo on 05-25-2022 Hemoglobin (Bld) [Mass/Vol] 9.3 g/dL 13.0-16.5 [facility] Blood lymphocytes/100 leukoc ytesOrdered By: Dr. Pardo on 05-25-2022 Lymphocytes/100 WBC (Bld) 12.6 % 19-41 [facility] Blood monocytes/100 leukocyt esOrdered By: Dr. Pardo on 05-25-2022 Monocytes/100 WBC (Bld) 6.4 % 0-10 [facility] Blood platelet mean volumeOr dered By: Dr. Pardo on 05-25-2022 Platelet mean volume (Bld) [Entitic vol] 10.8 fL 6.2-12.0 [facility] Determination of erythrocyte mean corpuscular volume (MCV)Ordered By: Dr. Pardo on 05-25-2022 MCV (RBC) [Entitic vol] 95.7 fL 80-94 [facility] Hematocrit Auto (Bld) [Volum e fraction]Ordered By: Dr. Pardo on 05-25-2022 Hematocrit (Bld) [Volume fraction] 28.7 % 40-54 [facility] Laboratory - Chemistry and C hemistry - challengeOrdered By: Dr. Pardo on 05-25-2022 ALP [Catalytic activity/Vol] 68 U/L 45-117 [facility] ALT [Catalytic activity/Vol] 20 U/L 16-61 [facility] Globulin (S) [Mass/Vol] 4.0 g/dL 2.2-4.2 [facility] Magnesium [Mass/Vol] 1.5 mg/dL 1.6-2.6 [facility] Laboratory - Hematology and Cell countsOrdered By: Dr. Pardo on 05-25-2022 Erythrocyte distribution width (RBC) [Entitic vol] 45.5 fL 35.1-43.9 [facility] Erythrocyte distribution width (RBC) [Ratio] 13.3 % 11.6-14.6 [facility] Immature granulocytes/100 WBC (Bld) 0.300 % 0.0-0.9 [facility] Comment on above: IG% - Immature Granu locytes (promyelocytes, myelocytes and metamyelocytes) > 1% indicates that a LEFT SHIFT is Present. MCH (RBC) [Entitic mass] 31.0 pg 27.0-32.0 [facility] Nucleated RBC/100 WBC (Bld) [Ratio] 0 % 0-5 [facility] MCHC Auto (RBC) [Mass/Vol]Or dered By: Dr. Pardo on 05-25-2022 MCHC (RBC) [Mass/Vol] 32.4 g/dL 32-36 [facility] No Panel InformationOrdered By: Dr. Pardo on 05-25-2022 Thyroid Stimulating Hormone (TSH) 2.10 uIU/mL 0.358-3.74 [facility] Platelets bldOrdered By: Dr. Pardo on 05-25-2022 Platelets (Bld) [#/Vol] 119 10*3/uL 150-450 [facility] Serum or plasma albumin elmira urement (mass/volume)Ordered By: Dr. Pardo on 05-25-2022 Albumin [Mass/Vol] 2.9 g/dL 3.2-5.0 [facility] Serum or plasma albumin/glob ulin mass ratioOrdered By: Dr. Pardo on 05-25-2022 Albumin/Globulin [Mass ratio] 0.7 {ratio} 0.9-2.4 [facility] Thin prep Papanicolaou smear with manual screeningOrdered By: Dr. Pardo on 05-25-2022 Thin prep Papanicolaou smear with manual screening 15 U/L 15-37 [facility] Absolute lymphocyte countOrd ered By: Dr. Edward on 05-24-2022 Lymphocytes Auto (Unsp spec) [#/Vol] 1.14 10*3/uL 0.83-4.51 [facility] Basophil percentageOrdered B y: Dr. Edward on 05-24-2022 Basophils/100 WBC (Bld) 0.4 % 0-1 [facility] Chloride [Moles/Vol] 106 mmol/L 98-107 [facility] Eosinophils/100 WBC (Bld) 2.9 % 0-5 [facility] Glucose [Mass/Vol] 178 mg/dL 74-106 [facility] Comment on above: Fasting Glucose resu lt greater than or equal to 126 mg/dL suggests DIABETES MELLITUS per A.D.A. criteria. Neutrophils (Bld) [#/Vol] 8.4 10*3/uL 2.0-7.7 [facility] Neutrophils/100 WBC (Bld) 80.1 % 47-70 [facility] Potassium [Moles/Vol] 4.3 mmol/L 3.5-5.1 [facility] Sodium [Moles/Vol] 144 mmol/L 136-145 [facility] WBC (Bld) [#/Vol] 10.4 10*3/uL 4.4-11.0 [facility] Blood erythrocytes count (nu mber/volume)Ordered By: Dr. Edward on 05-24-2022 RBC (Bld) [#/Vol] 3.21 10*6/uL 4.6-6.2 [facility] Blood hemoglobin measurement (mass/volume)Ordered By: Dr. Edward on 05-24-2022 Hemoglobin (Bld) [Mass/Vol] 9.7 g/dL 13.0-16.5 [facility] Blood lymphocytes/100 leukoc ytesOrdered By: Dr. Edward on 05-24-2022 Lymphocytes/100 WBC (Bld) 10.9 % 19-41 [facility] Blood monocytes/100 leukocyt esOrdered By: Dr. Edward on 05-24-2022 Monocytes/100 WBC (Bld) 5.4 % 0-10 [facility] Blood platelet mean volumeOr dered By: Dr. Edward on 05-24-2022 Platelet mean volume (Bld) [Entitic vol] 10.8 fL 6.2-12.0 [facility] Determination of erythrocyte mean corpuscular volume (MCV)Ordered By: Dr. Edward on 05-24-2022 MCV (RBC) [Entitic vol] 96.3 fL 80-94 [facility] Hematocrit Auto (Bld) [Volum e fraction]Ordered By: Dr. Edward on 05-24-2022 Hematocrit (Bld) [Volume fraction] 30.9 % 40-54 [facility] Influenza virus A and B and SARS-CoV-2 (COVID-19) Ag panel - Upper respiratory specimOrdered By: Dr. Pardo on 05-24-2022 SARS-CoV-2 (COVID-19) RNA JOSH+probe Ql (Resp) [facility] Laboratory - Chemistry and C hemistry - challengeOrdered By: Dr. Edward on 05-24-2022 CO2 [Moles/Vol] 32.0 mmol/L 21.0-32.0 [facility] Natriuretic peptide B (Bld) [Mass/Vol] 200.1 pg/mL 0-100 [facility] Urea nitrogen/Creatinine [Mass ratio] 30.6 mg/mg 10-20 [facility] Laboratory - Hematology and Cell countsOrdered By: Dr. Edward on 05-24-2022 Erythrocyte distribution width (RBC) [Entitic vol] 45.9 fL 35.1-43.9 [facility] Erythrocyte distribution width (RBC) [Ratio] 13.3 % 11.6-14.6 [facility] Immature granulocytes/100 WBC (Bld) 0.300 % 0.0-0.9 [facility] Comment on above: IG% - Immature Granu locytes (promyelocytes, myelocytes and metamyelocytes) > 1% indicates that a LEFT SHIFT is Present. MCH (RBC) [Entitic mass] 30.2 pg 27.0-32.0 [facility] Nucleated RBC/100 WBC (Bld) [Ratio] 0 % 0-5 [facility] Laboratory - Microbiology an d Antimicrobial susceptibilityOrdered By: Dr. Pardo on 05-24-2022 Respiratory pathogens DNA and RNA 12b panel [facility] ([facility] [Mass/Vol]Or dered By: Dr. Edward on 05-24-2022 MCHC (RBC) [Mass/Vol] 31.4 g/dL 32-36 [facility] No Panel InformationOrdered By: Dr. Pardo on 05-24-2022 Troponin I High Sensitivity 106 pg/mL 3.0-78.0 [facility] Comment on above: Please Note: New Arti t Units and Gender Specific Reference Ranges. For more information see Policy Stat Procedure [place] High Sensitivity Troponin (TNIH) and attachments. No Panel InformationOrdered By: Dr. Edward on 05-24-2022 Troponin I High Sensitivity 56 pg/mL 3.0-78.0 [facility] Comment on above: Please Note: New Arti t Units and Gender Specific Reference Ranges. For more information see Policy Stat Procedure [place] High Sensitivity Troponin (TNIH) and attachments. Estimated Creatinine Clearance Calc 33.70 ml/min [facility] Estimated GFR (MDRD) Amer 59 mL/min >60 [facility] Comment on above: GFR Calc Estimated GFR (MDRD) Non-Af Amer 49 mL/min >60 [facility] Comment on above: Non- GFR Calc Platelets bldOrdered By: Dr. Edward on 05-24-2022 Platelets (Bld) [#/Vol] 123 10*3/uL 150-450 [facility] Serum or plasma calcium elmira urement (mass/volume)Ordered By: Dr. Edward on 05-24-2022 Calcium [Mass/Vol] 9.5 mg/dL 8.5-10.1 [facility] Serum or plasma creatinine m easurement (mass/volume)Ordered By: Dr. Edward on 05-24-2022 Creatinine [Mass/Vol] 1.47 mg/dL 0.70-1.30 [facility] Comment on above: The validity of the calculated GFR & GFRAA in patients over 70 years has not been determined. Clinical correlation is essential. Serum or plasma urea nitroge n measurement (mass/volume)Ordered By: Dr. Edward on 05-24-2022 Urea nitrogen [Mass/Vol] 45 mg/dL 7-18 [facility] Thin prep Papanicolaou smear with manual screeningOrdered By: Dr. Edward on 05-24-2022 Thin prep Papanicolaou smear with manual screening 6 - [facility] Absolute lymphocyte countOrd ered By: Dr. Anders on 04-13-2022 Lymphocytes Auto (Unsp spec) [#/Vol] 1.63 10*3/uL 0.83-4.51 [facility] Basophil percentageOrdered B y: Dr. Anders on 04-13-2022 Basophils/100 WBC (Bld) 0.5 % 0-1 [facility] Chloride [Moles/Vol] 100 mmol/L 98-107 [facility] Eosinophils/100 WBC (Bld) 5.2 % 0-5 [facility] Glucose [Mass/Vol] 133 mg/dL 74-106 [facility] Comment on above: Fasting Glucose resu lt greater than or equal to 126 mg/dL suggests DIABETES MELLITUS per A.D.A. criteria. Neutrophils (Bld) [#/Vol] 3.1 10*3/uL 2.0-7.7 [facility] Neutrophils/100 WBC (Bld) 56.0 % 47-70 [facility] Potassium [Moles/Vol] 3.9 mmol/L 3.5-5.1 [facility] Sodium [Moles/Vol] 143 mmol/L 136-145 [facility] WBC (Bld) [#/Vol] 5.6 10*3/uL 4.4-11.0 [facility] Blood erythrocytes count (nu mber/volume)Ordered By: Dr. Anders on 04-13-2022 RBC (Bld) [#/Vol] 3.65 10*6/uL 4.6-6.2 [facility] Blood hemoglobin measurement (mass/volume)Ordered By: Dr. Anders on 04-13-2022 Hemoglobin (Bld) [Mass/Vol] 11.0 g/dL 13.0-16.5 [facility] Blood lymphocytes/100 leukoc ytesOrdered By: Dr. Anders on 04-13-2022 Lymphocytes/100 WBC (Bld) 29.3 % 19-41 [facility] Blood monocytes/100 leukocyt esOrdered By: Dr. Anders on 04-13-2022 Monocytes/100 WBC (Bld) 8.8 % 0-10 [facility] Blood platelet mean volumeOr dered By: Dr. Anders on 04-13-2022 Platelet mean volume (Bld) [Entitic vol] 10.7 fL 6.2-12.0 [facility] Determination of erythrocyte mean corpuscular volume (MCV)Ordered By: Dr. Anders on 04-13-2022 MCV (RBC) [Entitic vol] 92.1 fL 80-94 [facility] Glucose Glucometer (dC) [M ass/Vol]Ordered By: Dr. Anders on 04-13-2022 Glucose [Mass/Vol] 184 mg/dL 74-106 [facility] Comment on above: MANAGEMENT OF PATIEN T CARE PER NURSING PROTOCOL Hematocrit Auto (Bld) [Volum e fraction]Ordered By: Dr. Anders on 04-13-2022 Hematocrit (Bld) [Volume fraction] 33.6 % 40-54 [facility] - Chemistry and C hemistry - challengeOrdered By: Dr. Anders on 04-13-2022 CO2 [Moles/Vol] 35.0 mmol/L 21.0-32.0 [facility] Urea nitrogen/Creatinine [Mass ratio] 24.5 mg/mg 10-20 [facility] - Hematology and Cell countsOrdered By: Dr. Anders on 04-13-2022 Erythrocyte distribution width (RBC) [Entitic vol] 44.9 fL 35.1-43.9 [facility] Erythrocyte distribution width (RBC) [Ratio] 13.2 % 11.6-14.6 [facility] Immature granulocytes/100 WBC (Bld) 0.200 % 0.0-0.9 [facility] Comment on above: IG% - Immature Granu locytes (promyelocytes, myelocytes and metamyelocytes) > 1% indicates that a LEFT SHIFT is Present. MCH (RBC) [Entitic mass] 30.1 pg 27.0-32.0 [facility] Nucleated RBC/100 WBC (Bld) [Ratio] 0 % 0-5 [facility] MCHC Auto (RBC) [Mass/Vol]Or dered By: Dr. Anders on 04-13-2022 MCHC (RBC) [Mass/Vol] 32.7 g/dL 32-36 [facility] No Panel InformationOrdered By: Dr. Anders on 04-13-2022 Estimated Creatinine Clearance Calc 32.81 ml/min [facility] Estimated GFR (MDRD) Amer 57 mL/min >60 [facility] Comment on above: GFR Calc Estimated GFR (MDRD) Non-Af Amer 47 mL/min >60 [facility] Comment on above: Non- GFR Calc Platelets bldOrdered By: Dr. Anders on 04-13-2022 Platelets (Bld) [#/Vol] 125 10*3/uL 150-450 [facility] Serum or plasma calcium elmira urement (mass/volume)Ordered By: Dr. Anders on 04-13-2022 Calcium [Mass/Vol] 9.9 mg/dL 8.5-10.1 [facility] Serum or plasma creatinine m easurement (mass/volume)Ordered By: Dr. Anders on 04-13-2022 Creatinine [Mass/Vol] 1.51 mg/dL 0.70-1.30 [facility] Comment on above: The validity of the calculated GFR & GFRAA in patients over 70 years has not been determined. Clinical correlation is essential. Serum or plasma urea nitroge n measurement (mass/volume)Ordered By: Dr. Anders on 04-13-2022 Urea nitrogen [Mass/Vol] 37 mg/dL 7-18 [facility] Thin prep Papanicolaou smear with manual screeningOrdered By: Dr. Anders on 04-13-2022 Thin prep Papanicolaou smear with manual screening 8 5-15 [facility] Basophil percentageOrdered B y: Dr. Anders on 04-12-2022 Bilirubin [Mass/Vol] 0.60 mg/dL 0.20-1.00 [facility] Comment on above: For patients on eltr ombopag therapy, use of Dimension [place] TBIL is not recommended. Protein [Mass/Vol] 6.6 g/dL 6.4-8.2 [facility] Laboratory - Chemistry and C hemistry - challengeOrdered By: Dr. Anders on 04-12-2022 ALP [Catalytic activity/Vol] 77 U/L 45-117 [facility] ALT [Catalytic activity/Vol] 21 U/L 16-61 [facility] Globulin (S) [Mass/Vol] 3.6 g/dL 2.2-4.2 [facility] Serum or plasma albumin elmira urement (mass/volume)Ordered By: Dr. Anders on 04-12-2022 Albumin [Mass/Vol] 3.0 g/dL 3.2-5.0 [facility] Serum or plasma albumin/glob ulin mass ratioOrdered By: Dr. Anders on 04-12-2022 Albumin/Globulin [Mass ratio] 0.8 {ratio} 0.9-2.4 [facility] Thin prep Papanicolaou smear with manual screeningOrdered By: Dr. Anders on 04-12-2022 Thin prep Papanicolaou smear with manual screening 20 U/L 15-37 [facility] Absolute lymphocyte countOrd ered By: Dr. Yan on 04-11-2022 Lymphocytes Auto (Unsp spec) [#/Vol] 1.04 10*3/uL 0.83-4.51 [facility] Basophil percentageOrdered B y: Dr. Yan on 04-11-2022 Basophils/100 WBC (Bld) 0.4 % 0-1 [facility] Chloride [Moles/Vol] 110 mmol/L 98-107 [facility] Eosinophils/100 WBC (Bld) 4.3 % 0-5 [facility] Glucose [Mass/Vol] 160 mg/dL 74-106 [facility] Comment on above: Fasting Glucose resu lt greater than or equal to 126 mg/dL suggests DIABETES MELLITUS per A.D.A. criteria. Neutrophils (Bld) [#/Vol] 3.1 10*3/uL 2.0-7.7 [facility] Neutrophils/100 WBC (Bld) 66.7 % 47-70 [facility] Potassium [Moles/Vol] 4.7 mmol/L 3.5-5.1 [facility] Sodium [Moles/Vol] 145 mmol/L 136-145 [facility] WBC (Bld) [#/Vol] 4.6 10*3/uL 4.4-11.0 [facility] Blood erythrocytes count (nu mber/volume)Ordered By: Dr. Yan on 04-11-2022 RBC (Bld) [#/Vol] 3.31 10*6/uL 4.6-6.2 [facility] Blood hemoglobin measurement (mass/volume)Ordered By: Dr. Yan on 04-11-2022 Hemoglobin (Bld) [Mass/Vol] 9.8 g/dL 13.0-16.5 [facility] Blood lymphocytes/100 leukoc ytesOrdered By: Dr. Yan on 04-11-2022 Lymphocytes/100 WBC (Bld) 22.4 % 19-41 [facility] Blood monocytes/100 leukocyt esOrdered By: Dr. Yan on 04-11-2022 Monocytes/100 WBC (Bld) 6.0 % 0-10 [facility] Blood platelet mean volumeOr dered By: Dr. Yan on 04-11-2022 Platelet mean volume (Bld) [Entitic vol] 11.2 fL 6.2-12.0 [facility] Determination of erythrocyte mean corpuscular volume (MCV)Ordered By: Dr. Yan on 04-11-2022 MCV (RBC) [Entitic vol] 96.4 fL 80-94 [facility] Hematocrit Auto (Bld) [Volum e fraction]Ordered By: Dr. Yan on 04-11-2022 Hematocrit (Bld) [Volume fraction] 31.9 % 40-54 [facility] Laboratory - Chemistry and C hemistry - challengeOrdered By: Dr. Yan on 04-11-2022 CO2 [Moles/Vol] 30.0 mmol/L 21.0-32.0 [facility] Natriuretic peptide B (Bld) [Mass/Vol] 311.3 pg/mL 0-100 [facility] Urea nitrogen/Creatinine [Mass ratio] 17.7 mg/mg 10-20 [facility] - Hematology and Cell countsOrdered By: Dr. Yan on 04-11-2022 Erythrocyte distribution width (RBC) [Entitic vol] 48.2 fL 35.1-43.9 [facility] Erythrocyte distribution width (RBC) [Ratio] 13.6 % 11.6-14.6 [facility] Immature granulocytes/100 WBC (Bld) 0.200 % 0.0-0.9 [facility] Comment on above: IG% - Immature Granu locytes (promyelocytes, myelocytes and metamyelocytes) > 1% indicates that a LEFT SHIFT is Present. MCH (RBC) [Entitic mass] 29.6 pg 27.0-32.0 [facility] Nucleated RBC/100 WBC (Bld) [Ratio] 0 % 0-5 [facility] MCHC Auto (RBC) [Mass/Vol]Or dered By: Dr. Yan on 04-11-2022 MCHC (RBC) [Mass/Vol] 30.7 g/dL 32-36 [facility] No Panel InformationOrdered By: Dr. Yan on 04-11-2022 Troponin I High Sensitivity 27 pg/mL 3.0-78.0 [facility] Comment on above: Please Note: New Arti t Units and Gender Specific Reference Ranges. For more information see Policy Stat Procedure [place] High Sensitivity Troponin (TNIH) and attachments. Estimated Creatinine Clearance Calc 35.14 ml/min [facility] Estimated GFR (MDRD) Amer 62 mL/min >60 [facility] Comment on above: GFR Calc Estimated GFR (MDRD) Non-Af Amer 51 mL/min >60 [facility] Comment on above: Non- GFR Calc Platelets bldOrdered By: Dr. Yan on 04-11-2022 Platelets (Bld) [#/Vol] 108 10*3/uL 150-450 [facility] Serum or plasma calcium elimra urement (mass/volume)Ordered By: Dr. Yan on 04-11-2022 Calcium [Mass/Vol] 9.1 mg/dL 8.5-10.1 [facility] Serum or plasma creatinine m easurement (mass/volume)Ordered By: Dr. Yan on 04-11-2022 Creatinine [Mass/Vol] 1.41 mg/dL 0.70-1.30 [facility] Comment on above: The validity of the calculated GFR & GFRAA in patients over 70 years has not been determined. Clinical correlation is essential. Serum or plasma urea nitroge n measurement (mass/volume)Ordered By: Dr. Yan on 04-11-2022 Urea nitrogen [Mass/Vol] 25 mg/dL 7-18 [facility] Thin prep Papanicolaou smear with manual screeningOrdered By: Dr. Yan on 04-11-2022 Thin prep Papanicolaou smear with manual screening 5 5-15 [facility] LABORATORYOrdered By: SYSTEM SYSTEM on 03-22-2022 Albumin BCP dye [Mass/Vol] 3.3 G/dL Invalid Interpretation Code 3.4 - 4.8 G/dL AO ADM SS Albumin/Globulin [Mass ratio] 1.0 {ratio} Invalid Interpretation Code 1.1 - 2.5 ratio AO ADM SS ALP [Catalytic activity/Vol] 86 U/L Invalid Interpretation Code 40 - 135 U/L AO ADM SS ALT With P-5'-P [Catalytic activity/Vol] 57 U/L Invalid Interpretation Code 16 - 63 U/L AO ADM SS AST With P-5'-P [Catalytic activity/Vol] 44 U/L Invalid Interpretation Code 10 - 40 U/L AO ADM SS Bilirubin [Mass/Vol] 0.5 mg/dL Invalid Interpretation Code 0.2 - 1.0 mg/dL AO ADM SS Calcium [Mass/Vol] 9.8 mg/dL Invalid Interpretation Code 8.4 - 10.2 mg/dL AO ADM SS Chloride [Moles/Vol] 110 mmol/L Invalid Interpretation Code 98 - 107 mmol/L AO ADM SS CO2 [Moles/Vol] 32 mmol/L Invalid Interpretation Code 23 - 31 mmol/L AO ADM SS Creatinine [Mass/Vol] 1.41 mg/dL Invalid Interpretation Code 0.70 - 1.30 mg/dL AO ADM SS Electrolyte Balance 5.0 mEq/L Invalid Interpretation Code 4.0 - 15.0 mEq/L AO ADM SS GFR 58 ml/min/1.73sqm Invalid Interpretation Code AO Chemistry S GFR Non- 48 ml/min/1.73sqm Inval id Interpretation Code AO Chemistry S Globulin 3.4 G/dL Invalid Interpretation Code AO ADM SS Glucose [Mass/Vol] 140 mg/dL Invalid Interpretation Code 83 - 110 mg/dL AO ADM SS Potassium [Moles/Vol] 4.5 mmol/L Invalid Interpretation Code 3.5 - 5.1 mmol/L AO ADM SS Protein [Mass/Vol] 6.7 G/dL Invalid Interpretation Code 6.4 - 8.2 G/dL AO ADM SS Sodium [Moles/Vol] 147 mmol/L Invalid Interpretation Code 136 - 145 mmol/L AO ADM SS Urea nitrogen [Mass/Vol] 47 mg/dL Invalid Interpretation Code 7 - 18 mg/dL AO ADM SS Urea nitrogen/Creatinine [Mass ratio] 33 ratio Invalid Interpretation Code 7 - 27 ratio AO ADM SS Absolute lymphocyte countOrd ered By: Dr. Blunt on 03-16-2022 Lymphocytes Auto (Unsp spec) [#/Vol] 1.66 10*3/uL 0.83-4.51 [facility] Basophil percentageOrdered B y: Dr. Blunt on 03-16-2022 Basophils/100 WBC (Bld) 0.5 % 0-1 [facility] Chloride [Moles/Vol] 102 mmol/L 98-107 [facility] Eosinophils/100 WBC (Bld) 4.6 % 0-5 [facility] Glucose [Mass/Vol] 141 mg/dL 74-106 [facility] Comment on above: Fasting Glucose resu lt greater than or equal to 126 mg/dL suggests DIABETES MELLITUS per A.D.A. criteria. Neutrophils (Bld) [#/Vol] 3.8 10*3/uL 2.0-7.7 [facility] Neutrophils/100 WBC (Bld) 59.6 % 47-70 [facility] Potassium [Moles/Vol] 4.1 mmol/L 3.5-5.1 [facility] Sodium [Moles/Vol] 144 mmol/L 136-145 [facility] WBC (Bld) [#/Vol] 6.4 10*3/uL 4.4-11.0 [facility] Blood erythrocytes count (nu mber/volume)Ordered By: Dr. Blunt on 03-16-2022 RBC (Bld) [#/Vol] 3.44 10*6/uL 4.6-6.2 [facility] Blood hemoglobin measurement (mass/volume)Ordered By: Dr. Blunt on 03-16-2022 Hemoglobin (Bld) [Mass/Vol] 10.3 g/dL 13.0-16.5 [facility] Blood lymphocytes/100 leukoc ytesOrdered By: Dr. Blunt on 03-16-2022 Lymphocytes/100 WBC (Bld) 26.1 % 19-41 [facility] Blood monocytes/100 leukocyt esOrdered By: Dr. Blunt on 03-16-2022 Monocytes/100 WBC (Bld) 9.0 % 0-10 [facility] Blood platelet mean volumeOr dered By: Dr. Blunt on 03-16-2022 Platelet mean volume (Bld) [Entitic vol] 11.8 fL 6.2-12.0 [facility] Determination of erythrocyte mean corpuscular volume (MCV)Ordered By: Dr. Blunt on 03-16-2022 MCV (RBC) [Entitic vol] 95.6 fL 80-94 [facility] Glucose Glucometer (BldC) [M ass/Vol]Ordered By: Dr. Anders on 03-16-2022 Glucose [Mass/Vol] 137 mg/dL 74-106 [facility] Comment on above: MANAGEMENT OF PATIEN T CARE PER NURSING PROTOCOL Hematocrit Auto (Bld) [Volum e fraction]Ordered By: Dr. Blunt on 03-16-2022 Hematocrit (Bld) [Volume fraction] 32.9 % 40-54 [facility] INR in Blood by Coagulation assayOrdered By: Dr. Blunt on 03-16-2022 INR Coag (Bld) [Relative time] 1.2 {INR} [facility] Laboratory - Chemistry and C hemistry - challengeOrdered By: Dr. Blunt on 03-16-2022 CO2 [Moles/Vol] 35.0 mmol/L 21.0-32.0 [facility] Urea nitrogen/Creatinine [Mass ratio] 34.1 mg/mg 10-20 [facility] Laboratory - CoagulationOrde red By: Dr. Blunt on 03-16-2022 aPTT Coag (Bld) [Time] 40.9 s 24.1-36.2 [facility] PT Coag (PPP) [Time] 14.5 s 11.7-14.9 [facility] Laboratory - Hematology and Cell countsOrdered By: Dr. Blunt on 03-16-2022 Erythrocyte distribution width (RBC) [Entitic vol] 50.6 fL 35.1-43.9 [facility] Erythrocyte distribution width (RBC) [Ratio] 14.6 % 11.6-14.6 [facility] Immature granulocytes/100 WBC (Bld) 0.200 % 0.0-0.9 [facility] Comment on above: IG% - Immature Granu locytes (promyelocytes, myelocytes and metamyelocytes) > 1% indicates that a LEFT SHIFT is Present. MCH (RBC) [Entitic mass] 29.9 pg 27.0-32.0 [facility] Nucleated RBC/100 WBC (Bld) [Ratio] 0.3 % 0-5 [facility] MCHC Auto (RBC) [Mass/Vol]Or dered By: Dr. Blunt on 03-16-2022 MCHC (RBC) [Mass/Vol] 31.3 g/dL 32-36 [facility] No Panel InformationOrdered By: Dr. Blunt on 03-16-2022 Estimated Creatinine Clearance Calc 24.17 ml/min [facility] Estimated GFR (MDRD) Amer 40 mL/min >60 [facility] Comment on above: GFR Calc Estimated GFR (MDRD) Non-Af Amer 33 mL/min >60 [facility] Comment on above: Non- GFR Calc Platelets bldOrdered By: Dr. Blunt on 03-16-2022 Platelets (Bld) [#/Vol] 116 10*3/uL 150-450 [facility] Serum or plasma calcium elmira urement (mass/volume)Ordered By: Dr. Blunt on 03-16-2022 Calcium [Mass/Vol] 9.0 mg/dL 8.5-10.1 [facility] Serum or plasma creatinine m easurement (mass/volume)Ordered By: Dr. Blunt on 03-16-2022 Creatinine [Mass/Vol] 2.05 mg/dL 0.70-1.30 [facility] Comment on above: The validity of the calculated GFR & GFRAA in patients over 70 years has not been determined. Clinical correlation is essential. Serum or plasma urea nitroge n measurement (mass/volume)Ordered By: Dr. Blunt on 03-16-2022 Urea nitrogen [Mass/Vol] 70 mg/dL 7-18 [facility] Thin prep Papanicolaou smear with manual screeningOrdered By: Dr. Blunt on 03-16-2022 Thin prep Papanicolaou smear with manual screening 7 5-15 [facility] Influenza virus A and B and SARS-CoV-2 (COVID-19) Ag panel - Upper respiratory specimOrdered By: Dr. Lester on 03-12-2022 SARS-CoV-2 (COVID-19) RNA JOSH+probe Ql (Resp) [facility] Laboratory - Chemistry and C hemistry - challengeOrdered By: Dr. Lester on 03-12-2022 Natriuretic peptide B (Bld) [Mass/Vol] 285.7 pg/mL 0-100 [facility] No Panel InformationOrdered By: Dr. Rodriguez on 03-12-2022 Troponin I High Sensitivity 640 pg/mL 3.0-78.0 [facility] Comment on above: Critical Result(s) C alled at: 10:23:02 03/12/2022 by: Didier Xiao to [place]. Results read back by same. Please Note: New Test Units and Gender Specific Reference Ranges. For more information see Policy Stat Procedure [place] High Sensitivity Troponin (TNIH) and attachments. LABORATORYOrdered By: Caroline Ruiz on 01-03-2022 Albumin BCP dye [Mass/Vol] 2.7 G/dL Invalid Interpretation Code 3.4 - 4.8 G/dL AO ADM SS Albumin/Globulin [Mass ratio] 0.7 {ratio} Invalid Interpretation Code 1.1 - 2.5 ratio AO ADM SS ALP [Catalytic activity/Vol] 82 U/L Invalid Interpretation Code 40 - 135 U/L AO ADM SS ALT With P-5'-P [Catalytic activity/Vol] 26 U/L Invalid Interpretation Code 16 - 63 U/L AO ADM SS AST With P-5'-P [Catalytic activity/Vol] 23 U/L Invalid Interpretation Code 10 - 40 U/L AO ADM SS Bilirubin [Mass/Vol] 0.4 mg/dL Invalid Interpretation Code 0.2 - 1.0 mg/dL AO ADM SS Calcium [Mass/Vol] 9.8 mg/dL Invalid Interpretation Code 8.4 - 10.2 mg/dL AO ADM SS Chloride [Moles/Vol] 103 mmol/L Invalid Interpretation Code 98 - 107 mmol/L AO ADM SS CO2 [Moles/Vol] 35 mmol/L Invalid Interpretation Code 23 - 31 mmol/L AO ADM SS Creatinine [Mass/Vol] 1.28 mg/dL Invalid Interpretation Code 0.70 - 1.30 mg/dL AO ADM SS Electrolyte Balance 6.0 mEq/L Invalid Interpretation Code 4.0 - 15.0 mEq/L AO ADM SS Ferritin [Mass/Vol] 176.0 ng/mL Invalid Interpretation Code 26.0 - 388.0 ng/mL AO ADM SS Globulin 4.1 G/dL Invalid Interpretation Code AO ADM SS Glucose [Mass/Vol] 92 mg/dL Invalid Interpretation Code 83 - 110 mg/dL AO ADM SS Potassium [Moles/Vol] 4.7 mmol/L Invalid Interpretation Code 3.5 - 5.1 mmol/L AO ADM SS Protein [Mass/Vol] 6.8 G/dL Invalid Interpretation Code 6.4 - 8.2 G/dL AO ADM SS Sodium [Moles/Vol] 144 mmol/L Invalid Interpretation Code 136 - 145 mmol/L AO ADM SS Urea nitrogen [Mass/Vol] 37 mg/dL Invalid Interpretation Code 7 - 18 mg/dL AO ADM SS Urea nitrogen/Creatinine [Mass ratio] 29 ratio Invalid Interpretation Code 7 - 27 ratio AO ADM SS LABORATORYOrdered By: Amina Mckinnon on 01-03-2022 Basophil, Absolute 0.1 103/mcL Invalid Interpretation Code 0.0 - 0.2 10^3/mcL AO Workflow SS Basophils/100 WBC (Bld) 0.8 % Invalid Interpretation Code 0.0 - 2.5 % AO Workflow SS Eosinophil, Absolute 0.4 103/mcL Invalid Interpretation Code 0.0 - 0.4 10^3/mcL AO Workflow SS Eosinophils/100 WBC (Bld) 5.5 % Invalid Interpretation Code 0.0 - 7.0 % AO Workflow SS Erythrocyte distribution width (RBC) [Ratio] 13.2 % Invalid Interpretation Code 11.5 - 14.5 % AO Workflow SS Hematocrit (Bld) [Volume fraction] 31.5 % Invalid Interpretation Code 42.0 - 52.0 % AO Workflow SS Hemoglobin (Bld) [Mass/Vol] 10.6 G/dL Invalid Interpretation Code 14.0 - 18.0 G/dL AO Workflow SS Lymphocyte, Absolute 1.8 103/mcL Invalid Interpretation Code 0.8 - 3.9 10^3/mcL AO Workflow SS Lymphocytes/100 WBC (Bld) 24.5 % Invalid Interpretation Code 10.0 - 50.0 % AO Workflow SS MCH (RBC) [Entitic mass] 30.2 pg Invalid Interpretation Code 27.0 - 31.2 pg AO Workflow SS MCHC 33.6 G/dL Invalid Interpretation Code 31.8 - 35.4 G/dL AO Workflow SS MCV (RBC) [Entitic vol] 89.8 fL Invalid Interpretation Code 80.0 - 94.0 fL AO Workflow SS Monocyte, Absolute 0.6 103/mcL Invalid Interpretation Code 0.2 - 1.0 10^3/mcL AO Workflow SS Monocytes/100 WBC (Bld) 7.9 % Invalid Interpretation Code 1.7 - 13.0 % AO Workflow SS Neutrophil, Absolute 4.4 103/mcL Invalid Interpretation Code 2.9 - 6.2 10^3/mcL AO Workflow SS Neutrophils/100 WBC (Bld) 61.3 % Invalid Interpretation Code 37.0 - 80.0 % AO Workflow SS Platelet mean volume (Bld) [Entitic vol] 7.9 fL Invalid Interpretation Code 7.4 - 10.4 fL AO Workflow SS Platelets (Bld) [#/Vol] 225 103/mcL Invalid Interpretation Code 130 - 400 10^3/mcL AO Workflow SS RBC (Bld) [#/Vol] 3.50 106/mcL Invalid Interpretation Code 4.04 - 6.13 10^6/mcL AO Workflow SS WBC (Bld) [#/Vol] 7.2 103/mcL Invalid Interpretation Code 4.6 - 10.8 10^3/mcL AO Workflow SS LABORATORYOrdered By: SYSTEM SYSTEM on 01-03-2022 Cobalamin (Vitamin B12) [Mass/Vol] 406 pg/mL Invalid Interpretation Code 211 - 911 pg/mL AH ADM SS GFR 65 ml/min/1.73sqm Invalid Interpretation Code AO Chemistry S GFR Non- 54 ml/min/1.73sqm Inval id Interpretation Code AO Chemistry S COVID-19 virus antigen assay Ordered By: Dr. Alcantara on 12-16-2021 SARS-CoV-2 (COVID-19) Ag IA.rapid Ql (Resp) [facility] Glucose Glucometer (BldC) [M ass/Vol]Ordered By: Dr. Alcantara on 12-16-2021 Glucose [Mass/Vol] 207 mg/dL 74-106 [facility] Comment on above: MANAGEMENT OF PATIEN T CARE PER NURSING PROTOCOL Absolute lymphocyte countOrd ered By: Dr. Alcantara on 12-15-2021 Lymphocytes Auto (Unsp spec) [#/Vol] 1.50 10*3/uL 0.83-4.51 [facility] Basophil percentageOrdered B y: Dr. Alcantara on 12-15-2021 Basophils/100 WBC (Bld) 0.1 % 0-1 [facility] Chloride [Moles/Vol] 108 mmol/L 98-107 [facility] Eosinophils/100 WBC (Bld) 2.9 % 0-5 [facility] Glucose [Mass/Vol] 170 mg/dL 74-106 [facility] Comment on above: Fasting Glucose resu lt greater than or equal to 126 mg/dL suggests DIABETES MELLITUS per A.D.A. criteria. Neutrophils (Bld) [#/Vol] 6.5 10*3/uL 2.0-7.7 [facility] Neutrophils/100 WBC (Bld) 71.9 % 47-70 [facility] Potassium [Moles/Vol] 4.2 mmol/L 3.5-5.1 [facility] Sodium [Moles/Vol] 140 mmol/L 136-145 [facility] WBC (Bld) [#/Vol] 9.0 10*3/uL 4.4-11.0 [facility] Blood erythrocytes count (nu mber/volume)Ordered By: Dr. Alcantara on 12-15-2021 RBC (Bld) [#/Vol] 3.61 10*6/uL 4.6-6.2 [facility] Blood hemoglobin measurement (mass/volume)Ordered By: Dr. Alcantara on 12-15-2021 Hemoglobin (Bld) [Mass/Vol] 11.3 g/dL 13.0-16.5 [facility] Blood lymphocytes/100 leukoc ytesOrdered By: Dr. Alcantara on 12-15-2021 Lymphocytes/100 WBC (Bld) 16.7 % 19-41 [facility] Blood monocytes/100 leukocyt esOrdered By: Dr. Alcantara on 12-15-2021 Monocytes/100 WBC (Bld) 6.7 % 0-10 [facility] Blood platelet mean volumeOr dered By: Dr. Alcantara on 12-15-2021 Platelet mean volume (Bld) [Entitic vol] 10.3 fL 6.2-12.0 [facility] Determination of erythrocyte mean corpuscular volume (MCV)Ordered By: Dr. Alcantara on 12-15-2021 MCV (RBC) [Entitic vol] 92.5 fL 80-94 [facility] Hematocrit Auto (Bld) [Volum e fraction]Ordered By: Dr. Alcantara on 12-15-2021 Hematocrit (Bld) [Volume fraction] 33.4 % 40-54 [facility] Laboratory - Chemistry and C hemistry - challengeOrdered By: Dr. Alcantara on 12-15-2021 CO2 [Moles/Vol] 27.0 mmol/L 21.0-32.0 [facility] Natriuretic peptide B (Bld) [Mass/Vol] 116.1 pg/mL 0-100 [facility] Urea nitrogen/Creatinine [Mass ratio] 44.6 mg/mg 10-20 [facility] Laboratory - Hematology and Cell countsOrdered By: Dr. Alcantara on 12-15-2021 Erythrocyte distribution width (RBC) [Entitic vol] 43.8 fL 35.1-43.9 [facility] Erythrocyte distribution width (RBC) [Ratio] 12.9 % 11.6-14.6 [facility] Immature granulocytes/100 WBC (Bld) 1.700 % 0.0-0.9 [facility] Comment on above: IG% - Immature Granu locytes (promyelocytes, myelocytes and metamyelocytes) > 1% indicates that a LEFT SHIFT is Present. MCH (RBC) [Entitic mass] 31.3 pg 27.0-32.0 [facility] Nucleated RBC/100 WBC (Bld) [Ratio] 0 % 0-5 [facility] MCHC Auto (RBC) [Mass/Vol]Or dered By: Dr. Alcantara on 12-15-2021 MCHC (RBC) [Mass/Vol] 33.8 g/dL 32-36 [facility] No Panel InformationOrdered By: Dr. Alcantara on 12-15-2021 Estimated Creatinine Clearance Calc 38.11 ml/min [facility] Estimated GFR (MDRD) Amer 68 mL/min >60 [facility] Comment on above: GFR Calc Estimated GFR (MDRD) Non-Af Amer 56 mL/min >60 [facility] Comment on above: Non- GFR Calc Thyroid Stimulating Hormone (TSH) 3.74 uIU/mL 0.358-3.74 [facility] Platelets bldOrdered By: Dr. Alcantara on 12-15-2021 Platelets (Bld) [#/Vol] 155 10*3/uL 150-450 [facility] Serum or plasma calcium elmira urement (mass/volume)Ordered By: Dr. Alcantara on 12-15-2021 Calcium [Mass/Vol] 8.8 mg/dL 8.5-10.1 [facility] Serum or plasma creatinine m easurement (mass/volume)Ordered By: Dr. Alcantara on 12-15-2021 Creatinine [Mass/Vol] 1.30 mg/dL 0.70-1.30 [facility] Comment on above: The validity of the calculated GFR & GFRAA in patients over 70 years has not been determined. Clinical correlation is essential. Serum or plasma urea nitroge n measurement (mass/volume)Ordered By: Dr. Alcantara on 12-15-2021 Urea nitrogen [Mass/Vol] 58 mg/dL 7-18 [facility] Thin prep Papanicolaou smear with manual screeningOrdered By: Dr. Alcantara on 12-15-2021 Thin prep Papanicolaou smear with manual screening 5 5-15 [facility] Basophil percentageOrdered B y: Dr. Angel on 12-14-2021 Bilirubin [Mass/Vol] 0.40 mg/dL 0.20-1.00 [facility] Comment on above: For patients on eltr ombopag therapy, use of Dimension [place] TBIL is not recommended. Protein [Mass/Vol] 6.2 g/dL 6.4-8.2 [facility] Laboratory - Chemistry and C hemistry - challengeOrdered By: Dr. Angel on 12-14-2021 ALP [Catalytic activity/Vol] 76 U/L 45-117 [facility] ALT [Catalytic activity/Vol] 43 U/L 16-61 [facility] Globulin (S) [Mass/Vol] 4.3 g/dL 2.2-4.2 [facility] Serum or plasma albumin elmira urement (mass/volume)Ordered By: Dr. Angel on 12-14-2021 Albumin [Mass/Vol] 1.9 g/dL 3.2-5.0 [facility] Serum or plasma albumin/glob ulin mass ratioOrdered By: Dr. Angel on 12-14-2021 Albumin/Globulin [Mass ratio] 0.4 {ratio} 0.9-2.4 [facility] Thin prep Papanicolaou smear with manual screeningOrdered By: Dr. Angel on 12-14-2021 Thin prep Papanicolaou smear with manual screening 34 U/L 15-37 [facility] Comment on above: Slight Hemolysis, Re sult may be falsely increased. Basophil percentageOrdered B y: Dr. Villanueva on 12-13-2021 Basophil percentage 0 SEEN /hpf 0-5 [facility] Bilirubin Test strip Ql (U)O rdered By: Dr. Villanueva on 12-13-2021 Bilirubin Ql (U) Negative Negative [facility] Erythrocyte sedimentation ra teOrdered By: Dr. Villanueva on 12-13-2021 ESR (Bld) [Velocity] 101 mm/h 0-20 [facility] INR in Blood by Coagulation assayOrdered By: Dr. Angel on 12-13-2021 INR Coag (Bld) [Relative time] 1.2 {INR} [facility] Ketones Test strip Ql (U)Ord ered By: Dr. Villanueva on 12-13-2021 Ketones Ql (U) Negative Negative [facility] Laboratory - CoagulationOrde red By: Dr. Angel on 12-13-2021 aPTT Coag (Bld) [Time] 26.2 s 24.1-36.2 [facility] PT Coag (PPP) [Time] 14.7 s 11.7-14.9 [facility] Mucus LM Ql (Urine sed)Order ed By: Dr. Villanueva on 12-13-2021 Mucus Ql (Urine sed) 0 SEEN /hpf [facility] Nitrite Test strip Ql (U)Ord ered By: Dr. Villanueva on 12-13-2021 Nitrite Ql (U) Negative Negative [facility] Protein Test strip Ql (U)Ord ered By: Dr. Villanueva on 12-13-2021 Protein Ql (U) 100 mg/dl Negative [facility] Serum or plasma C reactive p rotein measurement (mass/volume)Ordered By: Dr. Villanueva on 12-13-2021 CRP [Mass/Vol] 87.40 mg/L 0.0-3.0 [facility] Comment on above: C-Reactive Protein ( CRP) provides useful information for thediagnosis, therapy and monitoring of inflammatory processesand associated diseases. For the evaluation of Relative Riskfor Cardiovascular Disease, a High Sensitivity CRP (HSCRP)should be ordered. Serum or plasma uric acid me asurement (mass/volume)Ordered By: Dr. Villanueva on 12-13-2021 Urate [Mass/Vol] 9.4 mg/dL 3.5-7.2 [facility] Comment on above: The drugs N-Acetylcy steine and Metamizole may falsely depress this assay. Serum procalcitonin measurem entOrdered By: Dr. Angel on 12-13-2021 Procalcitonin [Mass/Vol] 0.37 ng/mL 0.00-0.09 [facility] Comment on above: A procalcitonin (PCT ) level above 2.0 ng/mL on the first day of ICU admission is associated with a high risk for progression to severe sepsis and/or septic shock. A PCT level below 0.5 ng/mL on the first day of ICU admission is associated with a low risk for progression to severe and/or septic shock. Note: Concentrations <0.5 ng/mL do not exclude an infection on account of localized infections (without systemic signs) which can be associated with such low concentrations, or a systemic infection in its initial stages (<6 hours). Furthermore, increased procalcitonin can occur without infection. PCT concentrations between 0.5 and 2.0 ng/mL should be interpreted taking into account the patient's history. It is recommended to retest PCT within 6-24 hours if any concentrations <2 ng/mL are obtained. Squamous epithelial cells de tection in urine sediment by light microscopyOrdered By: Dr. Villanueva on 12-13-2021 Epithelial cells.squamous LM Ql (Urine sed) 0 SEEN /hpf 0-5 [facility] Urine blood detectionOrdered By: Dr. Villanueva on 12-13-2021 RBC Ql (U) 50 /ul Negative [facility] RBC Ql (U) 0-5 SEEN /hpf 0-5 [facility] Urine clarityOrdered By: Dr. Villanueva on 12-13-2021 Clarity (U) Clear Clear [facility] Urine color determinationOrd ered By: Dr. Villanueva on 12-13-2021 Color (U) Yellow Yellow [facility] Urine glucose detectionOrder ed By: Dr. Villanueva on 12-13-2021 Glucose Ql (U) Normal mg/dl Normal [facility] Urine leukocyte esterase det ection by dipstickOrdered By: Dr. Villanueva on 12-13-2021 Leukocyte esterase Test strip Ql (U) Negative Negative [facility] Urine pHOrdered By: Dr. Villanueva o n 12-13-2021 pH (U) 6.0 [pH] 5.0 - 8.0 [facility] Urine sediment bacteria coun t by microscopy (number/high power field)Ordered By: Dr. Villanueva on 12-13-2021 Bacteria LM.HPF (Urine sed) [#/Area] 0 /[HPF] None Seen [facility] Urine specific gravity measu rementOrdered By: Dr. Villanueva on 12-13-2021 Specific gravity (U) [Rel density] 1.015 1.002-1.030 [facility] Urobilinogen Auto test strip Ql (U)Ordered By: Dr. Villanueva on 12-13-2021 Urobilinogen Ql (U) Normal mg/dl Normal [facility] Absolute lymphocyte counton 12-08-2021 Lymphocytes Auto (Unsp spec) [#/Vol] 0.86 10*3/uL 0.83-4.51 [facility] Work Phone: Basophil percentageon 2021 Basophils/100 WBC (Bld) 0.2 % 0-1 [facility] Work Phone: Bilirubin [Mass/Vol] 1.30 mg/dL 0.20-1.00 [facility] Work Phone: Comment on above: For patients on eltr ombopag therapy, use of Dimension [place] TBIL is not recommended. Chloride [Moles/Vol] 105 mmol/L 98-107 [facility] Work Phone: Eosinophils/100 WBC (Bld) 0.2 % 0-5 [facility] Work Phone: Glucose [Mass/Vol] 205 mg/dL 74-106 [facility] Work Phone: Comment on above: Glucose result great er than or equal to 200 mg/dLsuggests DIABETES MELLITUS per A.D.A. criteria. Neutrophils (Bld) [#/Vol] 10.0 10*3/uL 2.0-7.7 [facility] Work Phone: Neutrophils/100 WBC (Bld) 84.4 % 47-70 [facility] Work Phone: Potassium [Moles/Vol] 4.3 mmol/L 3.5-5.1 [facility] Work Phone: Protein [Mass/Vol] 7.1 g/dL 6.4-8.2 [facility] Work Phone: Sodium [Moles/Vol] 139 mmol/L 136-145 [facility] Work Phone: WBC (Bld) [#/Vol] 11.9 10*3/uL 4.4-11.0 [facility] Work Phone: Blood erythrocytes count (nu mber/volume)on 12-08-2021 RBC (Bld) [#/Vol] 4.36 10*6/uL 4.6-6.2 [facility] Work Phone: Blood hemoglobin measurement (mass/volume)on 12-08-2021 Hemoglobin (Bld) [Mass/Vol] 13.2 g/dL 13.0-16.5 [facility] Work Phone: Blood lymphocytes/100 leukoc yteson 12-08-2021 Lymphocytes/100 WBC (Bld) 7.3 % 19-41 [facility] Work Phone: Blood monocytes/100 leukocyt eson 12-08-2021 Monocytes/100 WBC (Bld) 7.3 % 0-10 [facility] Work Phone: Blood platelet mean volumeon 12-08-2021 Platelet mean volume (Bld) [Entitic vol] 10.5 fL 6.2-12.0 [facility] Work Phone: Determination of erythrocyte mean corpuscular volume (MCV)on 12-08-2021 MCV (RBC) [Entitic vol] 92.2 fL 80-94 [facility] Work Phone: Erythrocyte sedimentation ra donnell 12-08-2021 ESR (Bld) [Velocity] 31 mm/h 0-20 [facility] Work Phone: Hematocrit Auto (Bld) [Volum e fraction]on 12-08-2021 Hematocrit (Bld) [Volume fraction] 40.2 % 40-54 [facility] Work Phone: Laboratory - Chemistry and C hemistry - challengeon 12-08-2021 ALP [Catalytic activity/Vol] 70 U/L 45-117 [facility] Work Phone: ALT [Catalytic activity/Vol] 16 U/L 16-61 [facility] Work Phone: CO2 [Moles/Vol] 27.0 mmol/L 21.0-32.0 [facility] Work Phone: Globulin (S) [Mass/Vol] 4.4 g/dL 2.2-4.2 [facility] Work Phone: [phone] Urea nitrogen/Creatinine [Mass ratio] 22.0 mg/mg 10-20 [facility] Work Phone: [phone] Laboratory - Hematology and Cell countson 12-08-2021 Erythrocyte distribution width (RBC) [Entitic vol] 43.1 fL 35.1-43.9 [facility] Work Phone: [phone] Erythrocyte distribution width (RBC) [Ratio] 12.7 % 11.6-14.6 [facility] Work Phone: [phone] Immature granulocytes/100 WBC (Bld) 0.600 % 0.0-0.9 [facility] Work Phone: [phone] Comment on above: IG% - Immature Granu locytes (promyelocytes, myelocytes and metamyelocytes) > 1% indicates that a LEFT SHIFT is Present. MCH (RBC) [Entitic mass] 30.3 pg 27.0-32.0 [facility] Work Phone: [phone] Nucleated RBC/100 WBC (Bld) [Ratio] 0 % 0-5 [facility] Work Phone: [phone] MCHC Auto (RBC) [Mass/Vol]on 12-08-2021 MCHC (RBC) [Mass/Vol] 32.8 g/dL 32-36 [facility] Work Phone: [phone] No Panel Informationon 12-08 Estimated Creatinine Clearance Calc 31.16 ml/min [facility] Work Phone: [phone] Estimated GFR (MDRD) Amer 54 mL/min >60 [facility] Work Phone: [phone] Comment on above: GFR Calc Estimated GFR (MDRD) Non-Af Amer 45 mL/min >60 [facility] Work Phone: [phone] Comment on above: Non- GFR Calc Platelets bldon 12-08-2021 Platelets (Bld) [#/Vol] 112 10*3/uL 150-450 [facility] Work Phone: [phone] Serum or plasma C reactive p rotein measurement (mass/volume)on 12-08-2021 CRP [Mass/Vol] 108.00 mg/L 0.0-3.0 [facility] Work Phone: Comment on above: C-Reactive Protein ( CRP) provides useful information for thediagnosis, therapy and monitoring of inflammatory processesand associated diseases. For the evaluation of Relative Riskfor Cardiovascular Disease, a High Sensitivity CRP (HSCRP)should be ordered. Serum or plasma albumin elmira urement (mass/volume)on 12-08-2021 Albumin [Mass/Vol] 2.7 g/dL 3.2-5.0 [facility] Work Phone: Serum or plasma albumin/glob ulin mass ratioon 12-08-2021 Albumin/Globulin [Mass ratio] 0.6 {ratio} 0.9-2.4 [facility] Work Phone: Serum or plasma calcium elmira urement (mass/volume)on 12-08-2021 Calcium [Mass/Vol] 9.3 mg/dL 8.5-10.1 [facility] Work Phone: Serum or plasma creatinine m easurement (mass/volume)on 12-08-2021 Creatinine [Mass/Vol] 1.59 mg/dL 0.70-1.30 [facility] Work Phone: Comment on above: The validity of the calculated GFR & GFRAA in patients over 70 years has not been determined. Clinical correlation is essential. Serum or plasma urea nitroge n measurement (mass/volume)on 12-08-2021 Urea nitrogen [Mass/Vol] 35 mg/dL 7-18 [facility] Work Phone: Serum or plasma uric acid me asurement (mass/volume)on 12-08-2021 Urate [Mass/Vol] 8.5 mg/dL 3.5-7.2 [facility] Work Phone: Comment on above: The drugs N-Acetylcy steine and Metamizole may falsely depress this assay. Thin prep Papanicolaou smear with manual screeningon 12-08-2021 Thin prep Papanicolaou smear with manual screening 14 U/L 15-37 [facility] Work Phone: Thin prep Papanicolaou smear with manual screening 7 07-24 [facility] Work Phone: LABORATORYOrdered By: Abigail Bailey on 11-24-2021 Albumin BCP dye [Mass/Vol] 2.9 G/dL Invalid Interpretation Code 3.4 - 4.8 G/dL AO ADM SS Albumin/Globulin [Mass ratio] 0.9 {ratio} Invalid Interpretation Code 1.1 - 2.5 ratio AO ADM SS ALP [Catalytic activity/Vol] 68 U/L Invalid Interpretation Code 40 - 135 U/L AO ADM SS ALT With P-5'-P [Catalytic activity/Vol] 30 U/L Invalid Interpretation Code 16 - 63 U/L AO ADM SS AST With P-5'-P [Catalytic activity/Vol] 25 U/L Invalid Interpretation Code 10 - 40 U/L AO ADM SS Bilirubin [Mass/Vol] 0.4 mg/dL Invalid Interpretation Code 0.2 - 1.0 mg/dL AO ADM SS Calcium [Mass/Vol] 8.4 mg/dL Invalid Interpretation Code 8.4 - 10.2 mg/dL AO ADM SS Chloride [Moles/Vol] 107 mmol/L Invalid Interpretation Code 98 - 107 mmol/L AO ADM SS CO2 [Moles/Vol] 26 mmol/L Invalid Interpretation Code 23 - 31 mmol/L AO ADM SS Creatinine [Mass/Vol] 1.44 mg/dL Invalid Interpretation Code 0.70 - 1.30 mg/dL AO ADM SS Electrolyte Balance 9.0 mEq/L Invalid Interpretation Code 4.0 - 15.0 mEq/L AO ADM SS Globulin 3.2 G/dL Invalid Interpretation Code AO ADM SS Glucose [Mass/Vol] 100 mg/dL Invalid Interpretation Code 83 - 110 mg/dL AO ADM SS Potassium [Moles/Vol] 4.7 mmol/L Invalid Interpretation Code 3.5 - 5.1 mmol/L AO ADM SS Protein [Mass/Vol] 6.1 G/dL Invalid Interpretation Code 6.4 - 8.2 G/dL AO ADM SS Sodium [Moles/Vol] 142 mmol/L Invalid Interpretation Code 136 - 145 mmol/L AO ADM SS TSH Qn 3.67 m[IU]/L Invalid Interpretation Code 0.36 - 3.74 mcIU/mL AO ADM SS Urea nitrogen [Mass/Vol] 37 mg/dL Invalid Interpretation Code 7 - 18 mg/dL AO ADM SS Urea nitrogen/Creatinine [Mass ratio] 26 ratio Invalid Interpretation Code 7 - 27 ratio AO ADM SS LABORATORYOrdered By: SYSTEM SYSTEM on 11-24-2021 GFR 57 ml/min/1.73sqm Invalid Interpretation Code AO Chemistry S GFR Non- 47 ml/min/1.73sqm Inval id Interpretation Code AO Chemistry S LABORATORYOrdered By: Javier Vega on 04-23-2021 ADMITTED TO INTENSIVE CARE UNIT FOR CONDITION OF INTEREST:FIND:PT:^PATIEN T:ORD: No (04/23/21 1:51 PM) Invalid Interpretation Code AO Auto Urine SS Basophil, Absolute 0.00 103/mcL Invalid Interpretation Code 0.00 - 0.19 10^3/mcL AO Auto Heme SS Basophils/100 WBC (Bld) 0.7 % Invalid Interpretation Code 0.0 - 2.5 % AO Auto Heme SS Calcium [Mass/Vol] 9.2 mg/dL Invalid Interpretation Code 8.4 - 10.2 mg/dL AO ADM SS Chloride [Moles/Vol] 111 mmol/L Invalid Interpretation Code 98 - 107 mmol/L AO ADM SS CO2 [Moles/Vol] 27 mmol/L Invalid Interpretation Code 23 - 31 mmol/L AO ADM SS Creatinine [Mass/Vol] 1.48 mg/dL Invalid Interpretation Code 0.70 - 1.30 mg/dL AO ADM SS Electrolyte Balance 11.0 mEq/L Invalid Interpretation Code 4.0 - 15.0 mEq/L AO ADM SS EMPLOYED IN A HEALTHCARE SETTING:FIND:PT:^PATIENT :ORD: No (04/23/21 1:51 PM) Invalid Interpretation Code AO Auto Urine SS Eosinophil, Absolute 0.40 103/mcL Invalid Interpretation Code 0.00 - 0.40 10^3/mcL AO Auto Heme SS Eosinophils/100 WBC (Bld) 7.1 % Invalid Interpretation Code 0.0 - 7.0 % AO Auto Heme SS Erythrocyte distribution width (RBC) [Ratio] 13.4 % Invalid Interpretation Code 11.5 - 14.5 % AO Auto Heme SS FIRST TEST FOR CONDITION OF INTEREST:FIND:PT:^PATIEN T:ORD: No (04/23/21 1:51 PM) Invalid Interpretation Code AO Auto Urine SS Glucose [Mass/Vol] 159 mg/dL Invalid Interpretation Code 83 - 110 mg/dL AO ADM SS HAS SYMPTOMS RELATED TO CONDITION OF INTEREST:FIND:PT:^PATIEN T:ORD: No (04/23/21 1:51 PM) Invalid Interpretation Code AO Auto Urine SS Hematocrit (Bld) [Volume fraction] 34.9 % Invalid Interpretation Code 42.0 - 52.0 % AO Auto Heme SS Hemoglobin (Bld) [Mass/Vol] 11.7 G/dL Invalid Interpretation Code 14.0 - 18.0 G/dL AO Auto Heme SS Illness or injury onset date and time [id number] Invalid Interpretation Code AO Auto Urine SS Lymphocyte, Absolute 1.10 103/mcL Invalid Interpretation Code 0.77 - 3.85 10^3/mcL AO Auto Heme SS Lymphocytes/100 WBC (Bld) 21.2 % Invalid Interpretation Code 10.0 - 50.0 % AO Auto Heme SS MCH (RBC) [Entitic mass] 30.9 pg Invalid Interpretation Code 27.0 - 31.2 pg AO Auto Heme SS MCHC (RBC) [Mass/Vol] 33.4 G/dL Invalid Interpretation Code 31.8 - 35.4 G/dL AO Auto Heme SS MCV (RBC) [Entitic vol] 92.6 fL Invalid Interpretation Code 80.0 - 94.0 fL AO Auto Heme SS Monocyte, Absolute 0.30 103/mcL Invalid Interpretation Code 0.15 - 1.00 10^3/mcL AO Auto Heme SS Monocytes/100 WBC (Bld) 5.5 % Invalid Interpretation Code 1.7 - 13.0 % AO Auto Heme SS Natriuretic peptide.B prohormone N-Terminal [Mass/Vol] 1431 pg/mL Invalid Interpretation Code 0 - 450 pg/mL AO ADM SS Neutrophil, Absolute 3.40 103/mcL Invalid Interpretation Code 2.85 - 6.16 10^3/mcL AO Auto Heme SS Neutrophils/100 WBC (Bld) 65.5 % Invalid Interpretation Code 37.0 - 80.0 % AO Auto Heme SS Patient was hospitalized because of this condition No (04/23/21 1:51 PM) Invalid Interpretation Code AO Auto Urine SS Platelet mean volume (Bld) [Entitic vol] 8.5 fL Invalid Interpretation Code 7.4 - 10.4 fL AO Auto Heme SS Platelets (Bld) [#/Vol] 107 103/mcL Invalid Interpretation Code 130 - 400 10^3/mcL AO Auto Heme SS Potassium [Moles/Vol] 5.7 mmol/L Invalid Interpretation Code 3.5 - 5.1 mmol/L AO ADM SS status Not (04/23/21 1:51 PM) Invalid Interpretation Code AO Auto Urine SS RBC (Bld) [#/Vol] 3.77 106/mcL Invalid Interpretation Code 4.04 - 6.13 10^6/mcL AO Auto Heme SS RESIDES IN A CONGREGATE CARE SETTING:FIND:PT:^PATIENT :ORD: No (04/23/21 1:51 PM) Invalid Interpretation Code AO Auto Urine SS SARS-CoV-2 (COVID-19) RNA JOSH+probe Ql (Resp) Negative (04/23/21 1:51 PM) Invalid Interpretation Code Negative AO Auto Urine SS SARS-CoV-2 (COVID-19) RNA JOSH+probe Ql (Unsp spec) Negative results do not preclude SARS-CoV-2 infection and should not be used as the sole basis for patient management decisions. Negative results must be combined with clinical observations, patient history, and epidemiological information.There is a risk of false negative values resulting from improperly collected, transported, or handled specimens.There is a risk of false negative values due to the presence of sequence variants in the pathogen targets of the assay, procedural errors, amplification inhibitors in specimens, or inadequate numbers of organisms for amplification.DILLON SARS-CoV-2 Assay is a Real-Time reverse-transcriptase polymerase chain reaction (RT-PCR) based qualitative in vitro diagnostic test intended for the qualitative detection of nucleic acid from the SARS-CoV-2 in nasopharyngeal swab specimens collected from individuals suspected of COVID-19 by their healthcare provider. Testing is limited to laboratories certified under the Clinical Laboratory Improvement Amendments of 1988 (CLIA), 42 U.S.C. 263a, to perform moderate and high complexity tests. Invalid Interpretation Code AO Auto Urine SS Sodium [Moles/Vol] 149 mmol/L Invalid Interpretation Code 136 - 145 mmol/L AO ADM SS Troponin I.cardiac DL <= 0.01 ng/mL [Mass/Vol] 26.3 ng/L Invalid Interpretation Code 0.0 - 76.2 ng/L AO ADM SS Urea nitrogen [Mass/Vol] 35 mg/dL Invalid Interpretation Code 7 - 18 mg/dL AO ADM SS Urea nitrogen/Creatinine [Mass ratio] 24 ratio Invalid Interpretation Code 7 - 27 ratio AO ADM SS WBC (Bld) [#/Vol] 5.20 103/mcL Invalid Interpretation Code 4.60 - 10.80 10^3/mcL AO Auto Heme SS LABORATORYOrdered By: SYSTEM SYSTEM on 04-23-2021 GFR 55 ml/min/1.73sqm Invalid Interpretation Code AO Chemistry S GFR Non- 46 ml/min/1.73sqm Inval id Interpretation Code AO Chemistry S TSHon 11-28-2018 TSH Qn 3.31 mcIU/mL Normal 0.36-3.74 [facility] ([place]) Comment on above: Performed By: #### T #### [facility] [address] [place] [address] COVID-19 virus antigen assay SARS-CoV-2 (COVID-19) Ag IA.rapid Ql (Resp) [facility] Work Phone: Influenza virus A and B and SARS-CoV-2 (COVID-19) Ag panel - Upper respiratory specim SARS-CoV-2 (COVID-19) RNA JOSH+probe Ql (Resp) [facility] Work Phone: Vital Signs Date Time Vital Sign Value Performing Clinician Facility 06-25-2024 14:14-0400 Body temperature 98 [degF] Dr. Yuridia Hernandez MD Work Phone: [facility] 06-25-2024 14:14-0400 Diastolic blood pressure 67 mm[Hg] Dr. Yuridia Hernandez MD Work Phone: [facility] 06-25-2024 14:14-0400 Heart rate 80 /min Dr. Yuridia Hernandez MD Work Phone: [facility] 06-25-2024 14:14-0400 Inhaled oxygen flow rate 1.5 L/min Dr. Yuridia Hernandez MD Work Phone: [facility] 06-25-2024 14:14-0400 Respiratory rate 16 /min Dr. Yuridia Hernandez MD Work Phone: [facility] 06-25-2024 14:14-0400 SaO2% (BldA) [Mass fraction] 98 % Dr. Yuridia Hernandez MD Work Phone: [facility] 06-25-2024 14:14-0400 Systolic blood pressure 106 mm[Hg] Dr. Yuridia Hernandez MD Work Phone: [phone] [place] [address] 06-24-2024 14:11-0400 Body height 165.[address] Yuridia Hernandez MD Work Phone: [phone] [place] [address] 06-24-2024 14:11-0400 Body weight 82.[address] Yuridia Hernandez MD Work Phone: [phone] [place] [address] 06-23-2024 18:43-0400 Body mass index (BMI) [Ratio] 30.1 kg/m2 Dr. Yuridia Hernandez MD Work Phone: [phone] [place] [address] 06-23-2024 18:00-0400 Diastolic blood pressure 82 mm[Hg] Dr. Yuridia Hernandez MD Work Phone: [phone] [place] [address] 06-23-2024 18:00-0400 Heart rate 104 /min Dr. Yuridia Hernandez MD Work Phone: 4(918)946-563131 [place] [address] 06-23-2024 18:00-0400 Respiratory rate 27 /min Dr. Yuridia Hernandez MD Work Phone: 2(682)475-618531 [place] [address] 06-23-2024 18:00-0400 SaO2% (BldA) [Mass fraction] 98 % Dr. Yuridia Hernandez MD Work Phone: 2(247)803-599231 [place] [address] 06-23-2024 18:00-0400 Systolic blood pressure 109 mm[Hg] Dr. Yuridia Hernandez MD Work Phone: 8(142)548-254231 [place] [address] 06-23-2024 17:33-0400 Body temperature 98 [degF] Dr. Yuridia Hernandez MD Work Phone: 7(727)098-195331 [place] [address] 06-23-2024 16:00-0400 Inhaled oxygen flow rate 2 L/min Dr. Yuridia Hernandez MD Work Phone: 9(465)520-038631 [place] [address] 06-23-2024 14:28-0400 Body height 165.[address] Yuridia Hernandez MD Work Phone: 7(830)484-342231 [place] [address] 06-23-2024 14:28-0400 Body mass index (BMI) [Ratio] 30.2 kg/m2 Dr. Yuridia Hernandez MD Work Phone: [facility] 06-23-2024 14:28-0400 Body weight 82.[address] Yuridia Hernandez MD Work Phone: [facility] 05-28-2024 15:44-0400 Body mass index (BMI) [Ratio] 30.1 kg/m2 Dr. Yuridia Hernandez MD Work Phone: 0(549)202-654387 [place] [address] 05-28-2024 15:44-0400 Body temperature 98.6 [degF] Dr. Yuridia Hernandez MD Work Phone: 2(654)885-786787 [place] [address] 05-28-2024 15:44-0400 Body weight 82.[address] Yuridai Hernandez MD Work Phone: 8(656)734-260587 [place] [address] 05-28-2024 15:44-0400 Diastolic blood pressure 54 mm[Hg] Dr. Yuridia Hernandez MD Work Phone: 4(659)638-273987 [place] [address] 05-28-2024 15:44-0400 Heart rate 95 /min Dr. Yuridia Hernandez MD Work Phone: 3(506)683-524287 [place] [address] 05-28-2024 15:44-0400 Inhaled oxygen flow rate 3 L/min Dr. Yuridia Hernandez MD Work Phone: 3(663)890-725387 [place] [address] 05-28-2024 15:44-0400 Respiratory rate 20 /min Dr. Yuridia Hernandez MD Work Phone: [facility] 05-28-2024 15:44-0400 SaO2% (BldA) [Mass fraction] 93 % Dr. Yuridia Hernandez MD Work Phone: 3(696)719-731687 [place] [address] 05-28-2024 15:44-0400 Systolic blood pressure 139 mm[Hg] Dr. Yuridia Hernandez MD Work Phone: 2(292)959-515387 [place] [address] 04-02-2024 15:56-0500 Body temperature 98 [degF] Dr. Yuridia Hernandez MD Work Phone: 3(446)838-043587 [place] [address] 04-02-2024 15:56-0500 Diastolic blood pressure 62 mm[Hg] Dr. Yuridia Hernandez MD Work Phone: [facility] 04-02-2024 15:56-0500 Heart rate 98 /min Dr. Yuridia Hernandez MD Work Phone: [facility] 04-02-2024 15:56-0500 Inhaled oxygen flow rate 2 L/min Dr. Yuridia Hernandez MD Work Phone: 1(409)404-060687 [place] [address] 04-02-2024 15:56-0500 Respiratory rate 18 /min Dr. Yuridia Hernandez MD Work Phone: 4(466)946-212731 [place] [address] 04-02-2024 15:56-0500 SaO2% (BldA) [Mass fraction] 95 % Dr. Yuridia Hernandez MD Work Phone: 3(784)784-646855 [address] 04-02-2024 15:56-0500 Systolic blood pressure 124 mm[Hg] Dr. Yuridia Hernandez MD Work Phone: 6(768)833-346131 [place] [address] 03-24-2024 15:39-0500 Body mass index (BMI) [Ratio] 30.3 kg/m2 Dr. Yuridia Hernandez MD Work Phone: 6(192)517-305331 [place] [address] 03-24-2024 15:39-0500 Body weight 82.[address] Yuridia Hernandez MD Work Phone: 3(473)664-461787 [place] [address] 03-24-2024 15:34-0500 Body temperature 98.8 [degF] Dr. Yuridia Hernandez MD Work Phone: 0(658)425-325387 [place] [address] 03-24-2024 15:34-0500 Diastolic blood pressure 55 mm[Hg] Dr. Yuridia Hernandez MD Work Phone: 4(793)141-545387 [place] [address] 03-24-2024 15:34-0500 Heart rate 88 /min Dr. Yuridia Hernandez MD Work Phone: [facility] 03-24-2024 15:34-0500 Inhaled oxygen flow rate 3 L/min Dr. Yuridia Hernandez MD Work Phone: 7(279)871-890987 [place] [address] 03-24-2024 15:34-0500 Respiratory rate 18 /min Dr. Yuridia Hernandez MD Work Phone: [facility] 03-24-2024 15:34-0500 SaO2% (BldA) [Mass fraction] 93 % Dr. Yuridia Hernandez MD Work Phone: [facility] 03-24-2024 15:34-0500 Systolic blood pressure 124 mm[Hg] Dr. Yuridia Hernandez MD Work Phone: 1(208)196-375787 [place] [address] 03-02-2024 09:23-0500 Heart rate 96 /min Dr. Yuridia Hernandez MD Work Phone: 0(087)620-200155 [address] 03-02-2024 09:22-0500 Body temperature 97.7 [degF] Dr. Yuridia Hernandez MD Work Phone: 9(145)591-065855 [address] 03-02-2024 09:22-0500 Diastolic blood pressure 56 mm[Hg] Dr. Yuridia Hernandez MD Work Phone: 7(647)902-374355 [address] 03-02-2024 09:22-0500 Inhaled oxygen flow rate 2 L/min Dr. Yuridia Hernandez MD Work Phone: 5(480)596-644587 [place] [address] 03-02-2024 09:22-0500 Respiratory rate 20 /min Dr. Yuridia Hernandez MD Work Phone: 6(468)964-402487 [place] [address] 03-02-2024 09:22-0500 SaO2% (BldA) [Mass fraction] 98 % Dr. Yuridia Hernandez MD Work Phone: 2(021)392-467487 [place] [address] 03-02-2024 09:22-0500 Systolic blood pressure 114 mm[Hg] Dr. Yuridia Hernandez MD Work Phone: 3(834)878-246155 [address] 03-02-2024 04:41-0500 Body mass index (BMI) [Ratio] 30.6 kg/m2 Dr. Yuridia Hernandez MD Work Phone: [facility] 03-02-2024 04:41-0500 Body weight 83.[address] Yuridia Hernandez MD Work Phone: 5(595)854-590155 [address] 06-27-2023 16:25-0400 Diastolic blood pressure 51 mm[Hg] Dr. Talya Nichols Work Phone: [facility] 06-27-2023 16:25-0400 Heart rate 87 /min Dr. Talya Nichols Work Phone: [facility] 06-27-2023 16:25-0400 Inhaled oxygen flow rate 3 L/min Dr. Talya Nichols Work Phone: [facility] 06-27-2023 16:25-0400 Respiratory rate 24 /min Dr. Talya Nichols Work Phone: [facility] 06-27-2023 16:25-0400 SaO2% (BldA) [Mass fraction] 98 % Dr. Talya Nichols Work Phone: [facility] 06-27-2023 16:25-0400 Systolic blood pressure 148 mm[Hg] Dr. Talya Nichols Work Phone: [facility] 06-27-2023 15:34-0400 Body temperature 97.5 [degF] Dr. Talya Nichols Work Phone: [facility] 06-27-2023 13:07-0400 Body height 165.[address] Talya Nichols Work Phone: [facility] 06-11-2023 12:11-0400 Heart rate 89 /min AHMET CLARK MD [facility] 06-11-2023 12:11-0400 Respiratory rate 24 /min AHMET CLARK MD [facility] 06-11-2023 08:32-0400 Heart rate 75 /min AHMET CLARK MD [facility] 06-11-2023 06:40-0400 Heart rate 73 /min AHMET CLARK MD [facility] 06-11-2023 06:40-0400 Respiratory rate 20 /min AHMET CLARK MD [facility] 06-11-2023 06:33-0400 Blood Pressure Cuff Size AHMET CLARK MD [facility] 06-11-2023 06:33-0400 Blood Pressure Location AHMET CLARK MD [facility] 06-11-2023 06:33-0400 Blood Pressure Method AHMET CLARK MD [facility] 06-11-2023 06:33-0400 Body temperature 97.34 [degF] AHMET CLARK MD [facility] 06-11-2023 06:33-0400 Diastolic Blood Pressure Non-Invasive 57 mm[Hg] AHMET CLARK MD [facility] 06-11-2023 06:33-0400 Heart rate 75 /min AHMET CLARK MD [facility] 06-11-2023 06:33-0400 Reason For Taking VItal Signs AHMET CLARK MD [facility] 06-11-2023 06:33-0400 Respiratory rate 20 /min AHMET CLARK MD [facility] 06-11-2023 06:33-0400 Systolic Blood Pressure Non-Invasive 128 mm[Hg] AHMET CLARK MD [facility] 06-10-2023 21:32-0400 Blood Pressure Cuff Size AHMET CLARK MD [facility] 06-10-2023 21:32-0400 Blood Pressure Location AHMET CLARK MD [facility] 06-10-2023 21:32-0400 Blood Pressure Method AHMET CLARK MD [facility] 06-10-2023 21:32-0400 Body temperature 98.06 [degF] AHMET CLARK MD [facility] 06-10-2023 21:32-0400 Diastolic Blood Pressure Non-Invasive 61 mm[Hg] AHMET CLARK MD [facility] 06-10-2023 21:32-0400 Heart rate 73 /min AHMET CLARK MD [facility] 06-10-2023 21:32-0400 Systolic Blood Pressure Non-Invasive 136 mm[Hg] AHMET CLARK MD [facility] 06-10-2023 14:28-0400 Blood Pressure Cuff Size AHMET CLARK MD [facility] 06-10-2023 14:28-0400 Blood Pressure Location AHMET CLARK MD [facility] 06-10-2023 14:28-0400 Blood Pressure Method AHMET CLARK MD [facility] 06-10-2023 14:28-0400 Body temperature 97.34 [degF] AHMET CLARK MD [facility] 06-10-2023 14:28-0400 Diastolic Blood Pressure Non-Invasive 46 mm[Hg] AHMET CLARK MD [facility] 06-10-2023 14:28-0400 Reason For Taking VItal Signs AHMET CLARK MD [facility] 06-10-2023 14:28-0400 Systolic Blood Pressure Non-Invasive 140 mm[Hg] AHMET CLARK MD [facility] 06-10-2023 08:13-0400 Heart rate 68 /min AHMET CLARK MD [facility] 06-10-2023 08:13-0400 Reason For Taking VItal Signs AHMET CLARK MD [facility] 06-09-2023 18:38-0400 Heart rate 83 /min AHMET CLARK MD [facility] 06-09-2023 18:00-0400 Heart rate 89 /min AHMET CLARK MD [facility] 06-09-2023 18:00-0400 Mean blood pressure 67 mm[Hg] AHMET CLARK MD [facility] 06-09-2023 16:00-0400 Mean blood pressure 54 mm[Hg] AHMET CLARK MD [facility] 06-09-2023 15:00-0400 Mean blood pressure 49 mm[Hg] AHMET CLARK MD [facility] 06-09-2023 15:00-0400 Signs/Symptoms Transfusion Reaction AHMET CLARK MD [facility] 06-09-2023 14:37-0400 Signs/Symptoms Transfusion Reaction AHMET CLARK MD [facility] 06-09-2023 13:40-0400 Diastolic blood pressure 55 mm[Hg] AHMET CLARK MD [facility] 06-09-2023 13:40-0400 Signs/Symptoms Transfusion Reaction No AHMET CLARK MD [facility] 06-09-2023 13:40-0400 Systolic blood pressure 145 mm[Hg] AHMET CLARK MD [facility] 06-08-2023 22:18-0400 Body height 165.1 cm AHMET CLARK MD [facility] 06-08-2023 22:18-0400 Body weight 83.3 kg AHMET CLARK MD [facility] 06-08-2023 22:18-0400 Body weight 30.56 kg/m2 AHMET CLARK MD [facility] 06-08-2023 20:58-0400 Diastolic blood pressure 68 mm[Hg] DR MARGARET RILEY DO [facility] 06-08-2023 20:58-0400 Heart rate 93 /min DR MARGARET RILEY DO [facility] 06-08-2023 20:58-0400 Respiratory rate 24 /min DR MARGARET RILEY DO [facility] 06-08-2023 20:58-0400 Systolic blood pressure 135 mm[Hg] DR MARGARET RILEY DO [facility] 06-08-2023 19:54-0400 Diastolic Blood Pressure Non-Invasive 54 mm[Hg] DR MARGARET RILEY DO [facility] 06-08-2023 19:54-0400 Heart rate 100 /min DR MARGARET RILEY DO [facility] 06-08-2023 19:54-0400 Respiratory rate 24 /min DR MARGARET RILEY DO [facility] 06-08-2023 19:54-0400 Systolic Blood Pressure Non-Invasive 138 mm[Hg] DR MARGARET RILEY DO [facility] 06-08-2023 19:09-0400 Diastolic Blood Pressure Non-Invasive 91 mm[Hg] DR MARGARET RILEY DO [facility] 06-08-2023 19:09-0400 Heart rate 100 /min DR MARGARET RILEY DO [facility] 06-08-2023 19:09-0400 Respiratory rate 24 /min DR MARGARET RILEY DO [facility] 06-08-2023 19:09-0400 Systolic Blood Pressure Non-Invasive 114 mm[Hg] DR MARGARET RILEY DO [facility] 06-08-2023 18:27-0400 SaO2% (BldA) [Mass fraction] 99 % DR MARGARET RILEY DO [facility] 06-08-2023 18:20-0400 Heart rate 98 /min DR MARGARET RILEY DO [facility] 06-08-2023 18:08-0400 Diastolic Blood Pressure Non-Invasive 71 mm[Hg] DR MARGARET RILEY DO [facility] 06-08-2023 18:08-0400 Systolic Blood Pressure Non-Invasive 155 mm[Hg] DR MARGARTE RILEY DO [facility] 06-08-2023 15:22-0400 Heart rate 96 /min DR MARGARET RILEY DO [facility] 06-08-2023 15:04-0400 Heart rate 90 /min DR MARGARET RILEY DO [facility] 06-08-2023 13:48-[address] MARGARET RILEY DO [facility] 06-08-2023 13:48-[address] MARGARET RILEY DO [facility] 06-08-2023 13:48-0400 Body temperature 98.24 [degF] DR MARGARET RILEY DO [facility] 06-08-2023 13:48-0400 Body weight 84.[address] MARGARET RILEY DO [facility] 05-25-2023 17:50-0400 Diastolic Blood Pressure Non-Invasive 77 mm[Hg] ANNY DA SILVA MD [facility] 05-25-2023 17:50-0400 Heart rate 99 /min ANNY DA SILVA MD [facility] 05-25-2023 17:50-0400 Respiratory rate 22 /min ANNY DA SILVA MD [facility] 05-25-2023 17:50-0400 Systolic Blood Pressure Non-Invasive 130 mm[Hg] ANNY DA SILVA MD [facility] 05-25-2023 16:55-0400 Diastolic Blood Pressure Non-Invasive 62 mm[Hg] ANNY DA SILVA MD [facility] 05-25-2023 16:55-0400 Heart rate 93 /min ANNY DA SILVA MD [facility] 05-25-2023 16:55-0400 Respiratory rate 22 /min ANNY DA SILVA MD [facility] 05-25-2023 16:55-0400 Systolic Blood Pressure Non-Invasive 136 mm[Hg] ANNY AD SILVA MD [facility] 05-25-2023 16:45-0400 Heart rate 90 /min ANNY DA SILVA MD [facility] 05-25-2023 16:45-0400 Respiratory rate 22 /min ANNY DA SILVA MD [facility] 05-25-2023 16:31-0400 Diastolic Blood Pressure Non-Invasive 61 mm[Hg] ANNY DA SILVA MD [facility] 05-25-2023 16:31-0400 Systolic Blood Pressure Non-Invasive 144 mm[Hg] ANNY DA SILVA MD [facility] 05-25-2023 15:04-0400 Body temperature 98.78 [degF] ANNY DA SILVA MD [facility] 05-25-2023 15:04-0400 Body weight 86.4 kg ANNY DA SILVA MD [facility] 05-08-2023 15:22-0500 Body temperature 97.7 [degF] DELIA [employer] TRAINER AND ASSESSOR-ACTIVE DIRECTORY ENGINEER [facility] 05-08-2023 15:22-0500 Diastolic Blood Pressure Non-Invasive 49 mm[Hg] DELIA [employer] TRAINER AND ASSESSOR-ACTIVE DIRECTORY ENGINEER [facility] 05-08-2023 15:22-0500 Heart rate 78 /min DELIA KAPPER [employer] TRAINER AND ASSESSOR-ACTIVE DIRECTORY ENGINEER [facility] 05-08-2023 15:22-0500 Reason For Taking VItal Signs DELIA K[employer]PER [employer] TRAINER AND ASSESSOR-ACTIVE DIRECTORY ENGINEER [facility] 05-08-2023 15:22-0500 Respiratory rate 20 /min DELIA K[employer] TRAINER AND ASSESSOR-ACTIVE DIRECTORY ENGINEER [facility] 05-08-2023 15:22-0500 Systolic Blood Pressure Non-Invasive 139 mm[Hg] DELIA [employer] TRAINER AND ASSESSOR-ACTIVE DIRECTORY ENGINEER [facility] 05-08-2023 15:11-0500 Heart rate 82 /min DELIA K[employer] TRAINER AND ASSESSOR-ACTIVE DIRECTORY ENGINEER [facility] 05-08-2023 15:11-0500 Respiratory rate 20 /min DELIA K[employer] TRAINER AND ASSESSOR-ACTIVE DIRECTORY ENGINEER [facility] 05-08-2023 11:11-0500 Heart rate 77 /min DELIA KAPPER [employer] TRAINER AND ASSESSOR-ACTIVE DIRECTORY ENGINEER [facility] 05-08-2023 11:11-0500 Respiratory rate 20 /min DELIA K[employer] TRAINER AND ASSESSOR-ACTIVE DIRECTORY ENGINEER [facility] 05-08-2023 11:00-0500 Systolic Blood Pressure Non-Invasive 153 mm[Hg] DELIA MARCER [employer] TRAINER AND ASSESSOR-ACTIVE DIRECTORY ENGINEER [facility] 05-08-2023 06:45-0500 Body temperature 97.52 [degF] DELIA K[employer] TRAINER AND ASSESSOR-ACTIVE DIRECTORY ENGINEER [facility] 05-08-2023 06:45-0500 Diastolic Blood Pressure Non-Invasive 52 mm[Hg] DELIA K[employer] TRAINER AND ASSESSOR-ACTIVE DIRECTORY ENGINEER [facility] 05-08-2023 06:45-0500 Heart rate 69 /min DELIA KAPPER [employer] TRAINER AND ASSESSOR-ACTIVE DIRECTORY ENGINEER [facility] 05-08-2023 06:45-0500 Reason For Taking VItal Signs DELIA TRANER [employer] TRAINER AND ASSESSOR-ACTIVE DIRECTORY ENGINEER [facility] 05-08-2023 06:45-0500 Systolic Blood Pressure Non-Invasive 136 mm[Hg] DELIA MARCER [employer] TRAINER AND ASSESSOR-ACTIVE DIRECTORY ENGINEER [facility] 05-08-2023 05:43-0500 Heart rate 71 /min DELIA K[employer]PER [employer] TRAINER AND ASSESSOR-ACTIVE DIRECTORY ENGINEER [facility] 05-07-2023 20:07-0500 Heart rate 74 /min DELIA K[employer]PER [employer] TRAINER AND ASSESSOR-ACTIVE DIRECTORY ENGINEER [facility] 05-07-2023 16:55-0500 Heart rate 84 /min DELIA KAPPER [employer] TRAINER AND ASSESSOR-ACTIVE DIRECTORY ENGINEER [facility] 05-07-2023 14:29-0500 Body height 165.1 cm DELIA TRANER [employer] TRAINER AND ASSESSOR-ACTIVE DIRECTORY ENGINEER [facility] 05-07-2023 14:29-0500 Body weight 87 kg DELIA KAPPER [employer] TRAINER AND ASSESSOR-ACTIVE DIRECTORY ENGINEER [facility] 05-07-2023 14:29-0500 Body weight 31.92 kg/m2 DELIA JEFFERSON [employer] TRAINER AND ASSESSOR-ACTIVE DIRECTORY ENGINEER [facility] 05-07-2023 09:56-0500 Body height 165.1 cm DELIA JEFFERSON [employer] TRAINER AND ASSESSOR-ACTIVE DIRECTORY ENGINEER [facility] 05-07-2023 09:56-0500 Body weight 87 kg DELIA JEFFERSON [employer] TRAINER AND ASSESSOR-ACTIVE DIRECTORY ENGINEER [facility] 05-01-2023 05:20-0500 Body temperature 97.4 [degF] Dr. Talya Nichols Work Phone: [facility] 05-01-2023 05:20-0500 Diastolic blood pressure 56 mm[Hg] Dr. Talya Nichols Work Phone: [facility] 05-01-2023 05:20-0500 Heart rate 74 /min Dr. Talya Nichols Work Phone: [facility] 05-01-2023 05:20-0500 Respiratory rate 22 /min Dr. Talya Nichols Work Phone: [facility] 05-01-2023 05:20-0500 SaO2% (BldA) [Mass fraction] 97 % Dr. Talya Nichols Work Phone: [facility] 05-01-2023 05:20-0500 Systolic blood pressure 138 mm[Hg] Dr. Talya Nichols Work Phone: [facility] 04-30-2023 23:00-0500 Inhaled oxygen flow rate 4 L/min Dr. Talya Nichols Work Phone: [facility] 04-30-2023 21:40-0500 Body height 165.[address] Talya Nichols Work Phone: [facility] 04-30-2023 21:40-0500 Body mass index (BMI) [Ratio] 33.6 kg/m2 Dr. Talya Nichols Work Phone: [facility] 04-30-2023 21:40-0500 Body weight 91.[address] Talya Nichols Work Phone: [facility] 04-26-2023 12:15-0500 Heart rate 8 /min Dr. Talya Nichols Work Phone: [facility] 04-26-2023 12:15-0500 Respiratory rate 20 /min Dr. Talya Nichols Work Phone: [facility] 04-26-2023 11:31-0500 Inhaled oxygen flow rate 2 L/min Dr. Talya Nichols Work Phone: [facility] 04-26-2023 11:31-0500 SaO2% (BldA) [Mass fraction] 98 % Dr. Talya Nichols Work Phone: [facility] 04-26-2023 08:20-0500 Body temperature 97.5 [degF] Dr. Talya Nichols Work Phone: [facility] 04-26-2023 08:20-0500 Diastolic blood pressure 46 mm[Hg] Dr. Talya Nichols Work Phone: [facility] 04-26-2023 08:20-0500 Systolic blood pressure 134 mm[Hg] Dr. Talya Nichols Work Phone: [facility] 04-26-2023 01:30-0500 Body mass index (BMI) [Ratio] 31.6 kg/m2 Dr. Talya Nichols Work Phone: [facility] 04-26-2023 01:30-0500 Body weight 86.[address] Talya Nichols Work Phone: [facility] 04-25-2023 10:36-0500 Body height 165.[address] Talya Nichols Work Phone: [facility] 04-24-2023 19:45-0500 Diastolic blood pressure 72 mm[Hg] Dr. Talya Nichols Work Phone: [facility] 04-24-2023 19:45-0500 Heart rate 107 /min Dr. Talya Nichols Work Phone: [facility] 04-24-2023 19:45-0500 Respiratory rate 27 /min Dr. Talya Nichols Work Phone: [facility] 04-24-2023 19:45-0500 SaO2% (BldA) [Mass fraction] 94 % Dr. Talya Nichols Work Phone: [facility] 04-24-2023 19:45-0500 Systolic blood pressure 90 mm[Hg] Dr. Talya Nichols Work Phone: [facility] 04-24-2023 19:03-0500 Body temperature 97.9 [degF] Dr. Talya Nichols Work Phone: [facility] 04-24-2023 18:29-0500 Inhaled oxygen flow rate 4 L/min Dr. Talya Nichols Work Phone: [facility] 04-24-2023 15:35-0500 Body height 165.[address] Talya Nichols Work Phone: [facility] 04-24-2023 15:35-0500 Body mass index (BMI) [Ratio] 33.3 kg/m2 Dr. Talya Nichols Work Phone: [facility] 04-24-2023 15:35-0500 Body weight 90.[address] Talya Nichols Work Phone: [facility] 04-07-2023 16:12-0500 Diastolic blood pressure 65 mm[Hg] Dr. Talya Nichols Work Phone: [facility] 04-07-2023 16:12-0500 Heart rate 91 /min Dr. Talya Nichols Work Phone: [facility] 04-07-2023 16:12-0500 SaO2% (BldA) [Mass fraction] 99 % Dr. Talya Nichols Work Phone: [facility] 04-07-2023 16:12-0500 Systolic blood pressure 160 mm[Hg] Dr. Talya Nichols Work Phone: [facility] 04-07-2023 14:19-0500 Inhaled oxygen flow rate 3 L/min Dr. Talya Nichols Work Phone: [facility] 04-07-2023 14:07-0500 Inhaled oxygen concentration 97 % Dr. Talya Nichols Work Phone: [facility] 04-07-2023 13:42-0500 Body height 165.[address] Talya Nichols Work Phone: [facility] 04-07-2023 13:42-0500 Body mass index (BMI) [Ratio] 33.2 kg/m2 Dr. Talya Nichols Work Phone: [facility] 04-07-2023 13:42-0500 Body temperature 98.4 [degF] Dr. Talya Nichols Work Phone: [facility] 04-07-2023 13:42-0500 Body weight 90.[address] Talya Nichols Work Phone: [facility] 04-07-2023 13:42-0500 Respiratory rate 36 /min Dr. Talya Nichols Work Phone: [facility] 04-02-2023 11:01-0500 Body temperature 98.6 [degF] Dr. Talya Nichols Work Phone: [facility] 04-02-2023 11:01-0500 Diastolic blood pressure 59 mm[Hg] Dr. Talya Nichols Work Phone: [facility] 04-02-2023 11:01-0500 Heart rate 90 /min Dr. Talya Nichols Work Phone: [facility] 04-02-2023 11:01-0500 Inhaled oxygen flow rate 2 L/min Dr. Talya Nichols Work Phone: [facility] 04-02-2023 11:01-0500 Respiratory rate 18 /min Dr. Talya Nichols Work Phone: [facility] 04-02-2023 11:01-0500 SaO2% (BldA) [Mass fraction] 98 % Dr. Talya Nichols Work Phone: [facility] 04-02-2023 11:01-0500 Systolic blood pressure 136 mm[Hg] Dr. Talya Nichols Work Phone: [facility] 04-02-2023 09:15-0500 Body height 165.[address] Talya Nichols Work Phone: [facility] 04-02-2023 09:15-0500 Body mass index (BMI) [Ratio] 32.4 kg/m2 Dr. Talya Nichols Work Phone: [facility] 04-02-2023 09:15-0500 Body weight 88.[address] Talya Nichols Work Phone: [facility] 03-09-2023 16:48-0500 Body temperature 97.9 [degF] Dr. Talya Nichols Work Phone: [facility] 03-09-2023 16:48-0500 Diastolic blood pressure 87 mm[Hg] Dr. Talya Nichols Work Phone: [facility] 03-09-2023 16:48-0500 Heart rate 100 /min Dr. Talya Nichols Work Phone: [facility] 03-09-2023 16:48-0500 Inhaled oxygen flow rate 2 L/min Dr. Talya Nichols Work Phone: [facility] 03-09-2023 16:48-0500 Respiratory rate 18 /min Dr. Talya Nichols Work Phone: [facility] 03-09-2023 16:48-0500 SaO2% (BldA) [Mass fraction] 95 % Dr. Talya Nichols Work Phone: [facility] 03-09-2023 16:48-0500 Systolic blood pressure 131 mm[Hg] Dr. Talya Nichols Work Phone: [facility] 03-08-2023 14:56-0500 Body height 165.[address] Talya Nichols Work Phone: [facility] 03-08-2023 14:56-0500 Body weight 84.[address] Talya Nichols Work Phone: [facility] 03-07-2023 22:14-0500 Body mass index (BMI) [Ratio] 31.1 kg/m2 Dr. Talya Nichols Work Phone: [facility] 03-07-2023 20:21-0500 Diastolic blood pressure 49 mm[Hg] Dr. Talya Nichols Work Phone: [facility] 03-07-2023 20:21-0500 Heart rate 81 /min Dr. Talya Nichols Work Phone: [facility] 03-07-2023 20:21-0500 SaO2% (BldA) [Mass fraction] 98 % Dr. Talya Nichols Work Phone: [facility] 03-07-2023 20:21-0500 Systolic blood pressure 133 mm[Hg] Dr. Talya Nichols Work Phone: [facility] 03-07-2023 19:11-0500 Respiratory rate 24 /min Dr. Talya Nichols Work Phone: [facility] 03-07-2023 18:55-0500 Inhaled oxygen flow rate 3 L/min Dr. Talya Nichols Work Phone: [facility] 03-07-2023 18:29-0500 Body temperature 98.4 [degF] Dr. Talya Nichols Work Phone: [facility] 03-07-2023 18:22-0500 Body height 165.[address] Talya Nichols Work Phone: [facility] 03-07-2023 18:22-0500 Body mass index (BMI) [Ratio] 32.3 kg/m2 Dr. Talya Nichols Work Phone: [facility] 03-07-2023 18:22-0500 Body weight [address] Talya Nichols Work Phone: [facility] 02-15-2023 13:59-0500 Body height 165.[address] Talya Nichols Work Phone: [facility] 02-15-2023 13:59-0500 Body weight 85.[address] Talya Nichols Work Phone: [facility] 02-15-2023 12:57-0500 Heart rate 90 /min Dr. Talya Nichols Work Phone: [facility] 02-15-2023 12:57-0500 Respiratory rate 20 /min Dr. Talya Nichols Work Phone: [facility] 02-15-2023 12:00-0500 Body temperature 97.1 [degF] Dr. Talya Nichols Work Phone: [facility] 02-15-2023 12:00-0500 Diastolic blood pressure 52 mm[Hg] Dr. Talya Nichols Work Phone: [facility] 02-15-2023 12:00-0500 Inhaled oxygen flow rate 2 L/min Dr. Talya Nichols Work Phone: [facility] 02-15-2023 12:00-0500 SaO2% (BldA) [Mass fraction] 99 % Dr. Talya Nichols Work Phone: [facility] 02-15-2023 12:00-0500 Systolic blood pressure 129 mm[Hg] Dr. Talya Nichols Work Phone: [facility] 02-15-2023 03:14-0500 Body mass index (BMI) [Ratio] 31.3 kg/m2 Dr. Talya Nichols Work Phone: [facility] 02-14-2023 22:00-0500 Inhaled oxygen concentration 98 % Dr. Talya Nichols Work Phone: [facility] 02-13-2023 23:32-0500 Diastolic blood pressure 40 mm[Hg] Dr. Talya Nichols Work Phone: [facility] 02-13-2023 23:32-0500 Heart rate 98 /min Dr. Talya Nichols Work Phone: [facility] 02-13-2023 23:32-0500 Inhaled oxygen flow rate 2 L/min Dr. Talya Nichols Work Phone: [facility] 02-13-2023 23:32-0500 Respiratory rate 20 /min Dr. Talya Nichols Work Phone: [facility] 02-13-2023 23:32-0500 SaO2% (BldA) [Mass fraction] 99 % Dr. Talya Nichols Work Phone: [facility] 02-13-2023 23:32-0500 Systolic blood pressure 109 mm[Hg] Dr. Talya Nichols Work Phone: [facility] 02-13-2023 22:36-0500 Body temperature 98.2 [degF] Dr. Talya Nichols Work Phone: [facility] 02-13-2023 22:24-0500 Inhaled oxygen concentration 2 % Dr. Talya Nichols Work Phone: [facility] 02-13-2023 20:08-0500 Body height 165.[address] Talya Nichols Work Phone: [facility] 02-13-2023 20:08-0500 Body mass index (BMI) [Ratio] 32 kg/m2 Dr. Talya Nichols Work Phone: [facility] 02-13-2023 20:08-0500 Body weight 87.[address] Talya Nichols Work Phone: [facility] 02-08-2023 22:00-0500 Diastolic blood pressure 46 mm[Hg] Dr. Talya Nichols Work Phone: [facility] 02-08-2023 22:00-0500 Respiratory rate 16 /min Dr. Talya Nichols Work Phone: [facility] 02-08-2023 22:00-0500 SaO2% (BldA) [Mass fraction] 95 % Dr. Talya Nichols Work Phone: [facility] 02-08-2023 22:00-0500 Systolic blood pressure 125 mm[Hg] Dr. Talya Nichols Work Phone: [facility] 02-08-2023 21:57-0500 Heart rate 98 /min Dr. Talya Nichols Work Phone: [facility] 02-08-2023 20:29-0500 Inhaled oxygen flow rate 2 L/min Dr. Talya Nichols Work Phone: [facility] 02-08-2023 17:56-0500 Body temperature 98.6 [degF] Dr. Talya Nichols Work Phone: [facility] 02-08-2023 17:50-0500 Body mass index (BMI) [Ratio] 32.7 kg/m2 Dr. Talya Nichols Work Phone: [facility] 02-08-2023 17:50-0500 Body weight 89.[address] Talya Nichols Work Phone: [facility] 11-18-2022 15:26-0400 Inhaled oxygen flow rate 2 L/min Dr. Talya Nichols Work Phone: [facility] 11-18-2022 15:26-0400 SaO2% (BldA) [Mass fraction] 92 % Dr. Talya Nichols Work Phone: [facility] 11-18-2022 15:22-0400 Body temperature 98.4 [degF] Dr. Talya Nichols Work Phone: [facility] 11-18-2022 15:22-0400 Diastolic blood pressure 58 mm[Hg] Dr. Talya Nichols Work Phone: [facility] 11-18-2022 15:22-0400 Heart rate 92 /min Dr. Talya Nichols Work Phone: [facility] 11-18-2022 15:22-0400 Respiratory rate 18 /min Dr. Talya Nichols Work Phone: [facility] 11-18-2022 15:22-0400 Systolic blood pressure 151 mm[Hg] Dr. Talya Nichols Work Phone: [facility] 11-17-2022 11:56-0400 Body height 165.[address] Talya Nichols Work Phone: [facility] 11-17-2022 11:56-0400 Body weight 84.[address] Talya Nichols Work Phone: [facility] 11-16-2022 19:44-0400 Body mass index (BMI) [Ratio] 31.1 kg/m2 Dr. Talya Nichols Work Phone: [facility] 11-16-2022 19:04-0400 Body temperature 98.1 [degF] [facility] 11-16-2022 19:04-0400 Diastolic blood pressure 42 mm[Hg] [facility] 11-16-2022 19:04-0400 Heart rate 98 /min [facility] 11-16-2022 19:04-0400 Respiratory rate 24 /min [facility] 11-16-2022 19:04-0400 SaO2% (BldA) [Mass fraction] 99 % [facility] 11-16-2022 19:04-0400 Systolic blood pressure 117 mm[Hg] [facility] 11-16-2022 16:47-0400 Inhaled oxygen flow rate 2 L/min [facility] 11-16-2022 16:26-0400 Body height 165.1 cm [facility] 11-16-2022 16:26-0400 Body mass index (BMI) [Ratio] 32.7 kg/m2 [facility] 11-16-2022 16:26-0400 Body weight 89.2 kg [facility] 10-23-2022 00:04-0400 Respiratory rate 20 /min Dr. Talya Nichols Work Phone: [facility] 10-23-2022 00:04-0400 SaO2% (BldA) [Mass fraction] 95 % Dr. Talya Nichols Work Phone: [facility] 10-22-2022 22:50-0400 Diastolic blood pressure 56 mm[Hg] Dr. Talya Nichols Work Phone: [facility] 10-22-2022 22:50-0400 Heart rate 93 /min Dr. Talya Nichols Work Phone: [facility] 10-22-2022 22:50-0400 Inhaled oxygen flow rate 2 L/min Dr. Talya Nichols Work Phone: [facility] 10-22-2022 22:50-0400 Systolic blood pressure 131 mm[Hg] Dr. Talya Nichols Work Phone: [facility] 10-22-2022 21:40-0400 Body temperature 98.6 [degF] Dr. Talya Nichols Work Phone: [facility] 10-22-2022 20:14-0400 Body height 165.[address] Talya Nichols Work Phone: [facility] 10-22-2022 20:14-0400 Body mass index (BMI) [Ratio] 33.4 kg/m2 Dr. Talya Nichols Work Phone: [facility] 10-22-2022 20:14-0400 Body weight 91.[address] Talya Nichols Work Phone: [facility] 07-06-2022 09:09-0400 Body mass index (BMI) [Ratio] 31.1 kg/m2 Dr. Talya Nichols Work Phone: [facility] 07-06-2022 09:09-0400 Body weight 84.[address] Talya Nichols Work Phone: [facility] 07-06-2022 09:09-0400 Diastolic blood pressure 71 mm[Hg] Dr. Talya Nichols Work Phone: [facility] 07-06-2022 09:09-0400 Heart rate 87 /min Dr. Talya Nichols Work Phone: [facility] 07-06-2022 09:09-0400 Inhaled oxygen flow rate 2 L/min Dr. Talya Nichols Work Phone: [facility] 07-06-2022 09:09-0400 Respiratory rate 24 /min Dr. Talya Nichols Work Phone: [facility] 07-06-2022 09:09-0400 SaO2% (BldA) [Mass fraction] 95 % Dr. Talya Nichols Work Phone: [facility] 07-06-2022 09:09-0400 Systolic blood pressure 140 mm[Hg] Dr. Talya Nichols Work Phone: [facility] 05-26-2022 10:00-0400 Inhaled oxygen flow rate 2 L/min Dr. Talya Nichols Work Phone: [facility] 05-26-2022 09:30-0400 Body temperature 97.9 [degF] Dr. Talya Nichols Work Phone: [facility] 05-26-2022 09:30-0400 Diastolic blood pressure 67 mm[Hg] Dr. Talya Nichols Work Phone: [facility] 05-26-2022 09:30-0400 Heart rate 89 /min Dr. Talya Nichols Work Phone: [facility] 05-26-2022 09:30-0400 Respiratory rate 18 /min Dr. Talya Nichols Work Phone: [facility] 05-26-2022 09:30-0400 SaO2% (BldA) [Mass fraction] 93 % Dr. Talya Nichols Work Phone: [facility] 05-26-2022 09:30-0400 Systolic blood pressure 116 mm[Hg] Dr. Talya Nichols Work Phone: [facility] 05-26-2022 05:25-0400 Body mass index (BMI) [Ratio] 31.3 kg/m2 Dr. Talya Nichols Work Phone: [facility] 05-26-2022 05:25-0400 Body weight 85.[address] Talya Nichols Work Phone: [facility] 05-24-2022 17:47-0400 Body height 165.[address] Talya Nichols Work Phone: [facility] 05-24-2022 16:11-0400 Body temperature 98 [degF] Dr. Talya Nichols Work Phone: [facility] 05-24-2022 16:11-0400 Diastolic blood pressure 50 mm[Hg] Dr. Talya Nichols Work Phone: [facility] 05-24-2022 16:11-0400 Heart rate 97 /min Dr. Talya Nichols Work Phone: [facility] 05-24-2022 16:11-0400 Inhaled oxygen flow rate 3 L/min Dr. Talya Nichols Work Phone: [facility] 05-24-2022 16:11-0400 Respiratory rate 26 /min Dr. Talya Nichols Work Phone: [facility] 05-24-2022 16:11-0400 SaO2% (BldA) [Mass fraction] 96 % Dr. Talya Nichols Work Phone: [facility] 05-24-2022 16:11-0400 Systolic blood pressure 150 mm[Hg] Dr. Talya Nichols Work Phone: [facility] 05-24-2022 11:08-0400 Body height 165.[address] Talya Nichols Work Phone: [facility] 05-24-2022 11:08-0400 Body mass index (BMI) [Ratio] 33.1 kg/m2 Dr. Talya Nichols Work Phone: [facility] 05-24-2022 11:08-0400 Body weight 90.[address] Talya Nichols Work Phone: [facility] 05-02-2022 09:27-0500 Body mass index (BMI) [Ratio] 31.1 kg/m2 Dr. Talya Nichols Work Phone: [facility] 05-02-2022 09:27-0500 Body weight 84.[address] Talya Nichols Work Phone: [facility] 05-02-2022 09:27-0500 Diastolic blood pressure 73 mm[Hg] Dr. Talya Nichols Work Phone: [facility] 05-02-2022 09:27-0500 Heart rate 67 /min Dr. Talya Nichols Work Phone: [facility] 05-02-2022 09:27-0500 Inhaled oxygen flow rate 2 L/min Dr. Talya Nichols Work Phone: [facility] 05-02-2022 09:27-0500 Respiratory rate 20 /min Dr. Talya Nichols Work Phone: [facility] 05-02-2022 09:27-0500 SaO2% (BldA) [Mass fraction] 95 % Dr. Talya Nichols Work Phone: [facility] 05-02-2022 09:27-0500 Systolic blood pressure 141 mm[Hg] Dr. Talya Nichols Work Phone: [facility] 04-13-2022 11:43-0500 SaO2% (BldA) [Mass fraction] 94 % Dr. Talya Nichols Work Phone: [facility] 04-13-2022 11:07-0500 Inhaled oxygen flow rate 2 L/min Dr. Talya Nichols Work Phone: [facility] 04-13-2022 10:00-0500 Respiratory rate 20 /min Dr. Talya Nichols Work Phone: [facility] 04-13-2022 09:49-0500 Body temperature 97.9 [degF] Dr. Talya Nichols Work Phone: [facility] 04-13-2022 09:49-0500 Diastolic blood pressure 64 mm[Hg] Dr. Talya Nichols Work Phone: [facility] 04-13-2022 09:49-0500 Heart rate 95 /min Dr. Talya Nichols Work Phone: [facility] 04-13-2022 09:49-0500 Systolic blood pressure 152 mm[Hg] Dr. Talya Nichols Work Phone: [facility] 04-13-2022 05:40-0500 Body weight 89.[address] Talya Nichols Work Phone: [facility] 04-12-2022 14:10-0500 Body height 165.[address] Talya Nichols Work Phone: [facility] 04-11-2022 23:35-0500 Body mass index (BMI) [Ratio] 32.3 kg/m2 Dr. Talya Nichlos Work Phone: [facility] 04-11-2022 22:42-0500 Body temperature 97.4 [degF] Dr. Talya Nichols Work Phone: [facility] 04-11-2022 22:42-0500 Diastolic blood pressure 55 mm[Hg] Dr. Talya Nicohls Work Phone: [facility] 04-11-2022 22:42-0500 Heart rate 98 /min Dr. Talya Nichols Work Phone: [facility] 04-11-2022 22:42-0500 Inhaled oxygen flow rate 4 L/min Dr. Talya Nichols Work Phone: [facility] 04-11-2022 22:42-0500 Respiratory rate 24 /min Dr. Talya Nichols Work Phone: [facility] 04-11-2022 22:42-0500 SaO2% (BldA) [Mass fraction] 98 % Dr. Talya Nichols Work Phone: [facility] 04-11-2022 22:42-0500 Systolic blood pressure 177 mm[Hg] Dr. aTlya Nichols Work Phone: [facility] 04-11-2022 18:11-0500 Body height 165.[address] Talya Nichols Work Phone: [facility] 04-11-2022 18:11-0500 Body mass index (BMI) [Ratio] 34.9 kg/m2 Dr. Talya Nichols Work Phone: [facility] 04-11-2022 18:11-0500 Body weight 95.[address] Talya Nichols Work Phone: [facility] 03-16-2022 11:17-0500 Heart rate 80 /min Dr. Talya Nichols Work Phone: [facility] 03-16-2022 11:17-0500 Respiratory rate 20 /min Dr. Talya Nichols Work Phone: [facility] 03-16-2022 09:00-0500 Body temperature 97.9 [degF] Dr. Talya Nichols Work Phone: [facility] 03-16-2022 09:00-0500 Diastolic blood pressure 42 mm[Hg] Dr. Talya Nichols Work Phone: [facility] 03-16-2022 09:00-0500 Inhaled oxygen flow rate 2 L/min Dr. Talya Nichols Work Phone: [facility] 03-16-2022 09:00-0500 SaO2% (BldA) [Mass fraction] 99 % Dr. Talya Nichols Work Phone: [facility] 03-16-2022 09:00-0500 Systolic blood pressure 107 mm[Hg] Dr. Talya Nichols Work Phone: [facility] 03-15-2022 03:13-0500 Body weight 85.[address] Talya Nichols Work Phone: [facility] 03-12-2022 12:40-0500 Body height 165.[address] Talya Nichols Work Phone: [facility] Work Phone: 03-12-2022 03:41-0500 Body mass index (BMI) [Ratio] 73.3 kg/m2 Dr. Talya Nichols Work Phone: [facility] 12-16-2021 16:00-0400 Inhaled oxygen flow rate 2 L/min Dr. Talya Nichols Work Phone: [facility] 12-16-2021 14:13-0400 Heart rate 110 /min Dr. Talya Nichols Work Phone: [facility] 12-16-2021 14:13-0400 Respiratory rate 24 /min Dr. Talya Nichols Work Phone: [facility] 12-16-2021 13:46-0400 Diastolic blood pressure 56 mm[Hg] Dr. Talya Nichols Work Phone: [facility] 12-16-2021 13:46-0400 Systolic blood pressure 158 mm[Hg] Dr. Talya Nichols Work Phone: [facility] 12-16-2021 13:39-0400 Body temperature 97.2 [degF] Dr. Talya Nichols Work Phone: [facility] 12-16-2021 13:39-0400 SaO2% (BldA) [Mass fraction] 99 % Dr. Talya Nichols Work Phone: [facility] 12-16-2021 06:00-0400 Body weight 91.[address] Tlaya Nichols Work Phone: [facility] 12-13-2021 14:18-0400 Body height 165.[address] Talya Nichols Work Phone: [facility] Work Phone: 12-13-2021 14:18-0400 Body mass index (BMI) [Ratio] 33 kg/m2 Dr. Talya Nichols Work Phone: [facility] 12-08-2021 13:19-0400 Heart rate 75 /min [facility] Work Phone: 12-08-2021 13:19-0400 SaO2% (BldA) [Mass fraction] 93 % [facility] Work Phone: 12-08-2021 13:05-0400 Respiratory rate 24 /min Dr. Talya Nichols Work Phone: [facility] Work Phone: 12-08-2021 08:37-0400 Body temperature 98.4 [degF] [facility] Work Phone: 12-08-2021 08:37-0400 Diastolic blood pressure 81 mm[Hg] [facility] Work Phone: 12-08-2021 08:37-0400 Respiratory rate 20 /min [facility] Work Phone: 12-08-2021 08:37-0400 Systolic blood pressure 195 mm[Hg] [facility] Work Phone: 12-08-2021 08:35-0400 Body height 165.1 cm [facility] Work Phone: 12-08-2021 08:35-0400 Body mass index (BMI) [Ratio] 34 kg/m2 [facility] Work Phone: 12-08-2021 08:35-0400 Body weight 92.6 kg [facility] Work Phone: 04-23-2021 15:48-0500 Heart rate 96 /min RADHA YADAV MD [facility] 04-23-2021 15:48-0500 Respiratory rate 20 /min RADHA YADAV MD [facility] 04-23-2021 14:45-0500 Diastolic blood pressure 87 mm[Hg] RADHA YADAV MD [facility] 04-23-2021 14:45-0500 Heart rate 101 /min RADHA YADAV MD [facility] 04-23-2021 14:45-0500 Respiratory rate 20 /min RADHA YADAV MD [facility] 04-23-2021 14:45-0500 Systolic blood pressure 133 mm[Hg] RADHA YADAV MD [facility] 04-23-2021 14:05-0500 Heart rate 107 /min RADHA YADAV MD [facility] 04-23-2021 14:05-0500 Respiratory rate 22 /min RADHA YADAV MD [facility] 04-23-2021 13:50-0500 Diastolic blood pressure 90 mm[Hg] RADHA YADAV MD [facility] 04-23-2021 13:50-0500 Systolic blood pressure 135 mm[Hg] RADHA YADAV MD [facility] Encounters Encounter Date Encounter Type Care Provider Facility Start: 08-01-2024 End: 08-01-[address] Yuridia Hernandez MD Work Phone: [facility] Work Phone: Start: 08-01-2024 End: 08-01-[address] Manuela Miller Oran Work Phone: Start: 08-01-2024 End: 08-01-2024 ambulatory Manuela Washburn Facility:[facility] Start: 07-14-2024 End: 07-14-2024 Patient encounter procedure Liliya Troncoos [facility] Work Phone: Start: 07-14-2024 End: 07-14-2024 ambulatory Liliya Troncoso Facility:[facility] Start: 07-04-2024 End: 07-04-[address] Manuela Miller Oran Work Phone: Start: 07-04-2024 End: 07-04-2024 ambulatory Manuela Washburn Facility:[facility] Start: 06-30-2024 End: 06-30-[address] Yuridia Hernandez MD -[facility] Work Phone: Start: 06-30-2024 End: 06-30-2024 ambulatory Yuridia Hernandez Facility:[facility] Start: 06-25-2024 Non-patient / Non-visit Dr. Sarai Alcantara MD -[facility] Work Phone: Start: 06-24-2024 Non-patient / Non-visit Dr. Sarai Alcantara MD -[facility] Work Phone: Start: 06-23-2024 ambulatory Tracy Angel Facility :[facility] Start: 06-23-2024 End: 06-25-2024 Evaluation and management of inpatient Dr. Tracy Angel MD -[facility] Work Phone: Start: 05-28-[address] Andre Duarte MD -[facility] Start: 05-28-2024 End: 05-28-[address] Andre Duarte MD -[facility] Work Phone: Start: 05-28-2024 End: 05-28-2024 ambulatory [facility] Facility:[facility] Start: 04-03-[address] [facility] Start: 04-02-2024 End: 04-02-[address] Andre Duarte MD -[facility] Work Phone: Start: 04-02-2024 End: 04-02-2024 ambulatory [facility] Facility:[facility] Start: 03-24-2024 End: 03-24-[address] Andre Duarte MD -[facility] Work Phone: Start: 03-24-2024 End: 03-24-2024 ambulatory [facility] Facility:[facility] Start: 03-17-2024 End: 03-17-2024 Patient encounter procedure Fredy Joy DO [facility] Work Phone: Start: 03-17-2024 End: 03-17-2024 ambulatory Fredy Benita Facility:[facility] Start: 03-14-2024 End: 03-14-[address] Yuridia Hernandez MD -Laboratory, [facility] Start: 03-14-2024 End: 03-14-2024 ambulatory Yuridia Hernandez OLS Facility:[facility] Start: 03-02-2024 Non-patient / Non-visit Dr. Sarai Alcantara MD -[facility] Work Phone: Start: 03-01-2024 Non-patient / Non-visit Dr. Sarai Alcantara MD -[facility] Work Phone: Start: 03-01-2024 ambulatory Sarai Alcantara Facility :[facility] Start: 03-01-2024 Non-patient / Non-visit Fredyalba Joy DO -[facility] Start: 02-29-2024 Non-patient / Non-visit Fredyalba Joy DO -[facility] Start: 02-29-2024 Non-patient / Non-visit Dr. Sarai Alcantara MD -[facility] Work Phone: Start: 02-28-2024 ambulatory Sarai Alcantara Facility :[facility] Start: 02-28-2024 End: 03-02-2024 Evaluation and management of inpatient Dr. Sarai Alcantara MD -Progressive Care Unit Work Phone: Start: 02-28-2024 Non-patient / [facility] Work [facility] Start: 02-28-2024 ambulatory Yuridia Mary [facility] Start: 02-21-2024 End: 02-21-2024 ambulatory Yuridia Hernandez Facility:[facility] Start: 02-11-2024 End: 02-11-2024 ambulatory Yuridia Hernandez Facility:[facility] Start: 02-03-2024 ambulatory Erika Deras ty:[facility] Start: 02-03-2024 End: 02-04-2024 Evaluation and management of inpatient John Anders Facility:[facility] Start: 01-22-2024 End: 01-22-2024 ambulatory Manuela Washburn Facility:[facility] Start: 01-10-2024 End: 01-10-2024 Emergency department patient visit Yuridia Hernandez Facility:[facility] Start: 01-09-2024 End: 01-09-2024 ambulatory Talya Nichols Facility:[facility] Start: 01-09-2024 End: 01-09-2024 ambulatory Liliya Yomiosvaldomelodie Facility:[facility] Start: 12-27-2023 ambulatory Fredy Joy Facility :[facility] Start: 12-26-2023 ambulatory Yuridia Hernandez [facility] Start: 12-26-2023 End: 12-28-2023 Evaluation and management of inpatient Yuridia Hernandez Facility:[facility] Start: 12-13-2023 End: 12-13-2023 ambulatory Manuela Wu Facility:[facility] Start: 12-10-2023 ambulatory Fredy Joy Facility :[facility] Start: 12-10-2023 ambulatory Yuridia Hernandez [facility] Start: 12-08-2023 ambulatory Alexeyisaac Jayshree [facility] Start: 12-06-2023 End: 12-10-2023 Evaluation and management of inpatient Jayapracaities Stephany Facility:[facility] Start: 12-06-2023 ambulatory Anderson Hammond Facil [facility]y:[facility] Start: 12-05-2023 End: 12-05-2023 ambulatory Yuridia Hernandez Facility:[facility] Start: 12-02-2023 End: 12-02-2023 Emergency department patient visit Yuridia Hernandez Facility:[facility] Start: 11-23-2023 End: 11-23-2023 ambulatory Yuridia Hernandez Facility:[facility] Start: 11-21-2023 ambulatory Yuridia Hernandez Facility:[facility] Start: 11-18-2023 ambulatory Sarai Shannon Koram Facility :[facility] Start: 11-18-2023 End: 11-20-2023 Evaluation and management of inpatient Sarai Shannon Koram Facility:[facility] Start: 11-16-2023 Encounter for general adult medical examination without abnormal findings Yuridia Hernandez [facility] Start: 11-15-2023 ambulatory Yuridia Hernandez [facility] Start: 11-14-2023 End: 11-16-2023 Evaluation and management of inpatient Michelle Wu Facility:[facility] Start: 11-14-2023 ambulatory Michelle Washburn [facility] Start: 11-07-2023 End: 11-07-2023 ambulatory Yuridia Hernandez Facility:[facility] Start: 10-24-2023 ambulatory Talya Nichols Facility :[facility] Start: 08-17-2023 ambulatory TALYA NICHOLS DO Facil ity:[facility] Start: 08-17-2023 End: 08-21-2023 Outreach Lab TALYA NICHOLS DO [facility] Start: 07-03-2023 End: 07-07-2023 ambulatory TALYA NICHOLS DO Facility:[facility] Start: 06-27-2023 End: 06-27-2023 Emergency department patient visit Dr. Talya Nichols Work Phone: [facility] Work Phone: Start: 06-08-2023 End: 06-11-2023 Evaluation and management of inpatient AHMET CLARK MD [facility] Start: 06-08-2023 End: 06-08-2023 Emergency department patient visit DR MARGARET RILEY DO [facility] Start: 06-08-2023 End: 06-08-2023 ambulatory TALYA NICHOLS DO Facility:[facility] Start: 06-08-2023 End: 06-08-2023 Patient encounter procedure TALYA NICHOLS DO [facility] Start: 05-25-2023 End: 05-25-2023 Emergency department patient visit ANNY DA SILVA MD [facility] Start: 05-24-2023 End: 05-24-2023 ambulatory TALYA NICHOLS DO Facility:[facility] Start: 05-24-2023 End: 05-24-2023 Patient encounter procedure TALYA NICHOLS [facility] Start: 05-17-2023 End: 05-17-2023 ambulatory TALYA NICHOLS Facility:[facility] Start: 05-17-2023 End: 05-17-2023 Patient encounter procedure TALYA NICHOLS DO [facility] Start: 05-07-2023 End: 05-08-2023 ambulatory TALYA MAGDALENA DO Facility:[facility] Start: 05-07-2023 End: 05-08-2023 Observation DELIA JEFFERSON WORKPLACE TRAINER AND ASSESSOR-ACTIVE DIRECTORY ENGINEER [facility] Start: 05-04-2023 End: 05-10-[address] Talya Nichols Work Phone: [facility] Work Phone: Start: 05-04-2023 End: 05-10-[address] Talya Nichols Work Phone: [facility] Start: 04-30-2023 End: 05-01-2023 Emergency department patient visit Dr. Talya Nichols Work Phone: [facility] Work Phone: Start: 04-26-2023 Non-patient / Non-visit Dr. Talya Nichols Work Phone: [facility] Work Phone: Start: 04-26-2023 Non-patient / Non-visit Dr. Talya Nichols Work Phone: [facility] Start: 04-25-2023 Non-patient / Non-visit Dr. Talya Nichols Work Phone: [facility] Work Phone: Start: 04-25-2023 Non-patient / Non-visit Dr. Talya Nichols Work Phone: [facility] Start: 04-24-2023 Non-patient / Non-visit Dr. Talya Nichols Work Phone: [facility] Work Phone: Start: 04-24-2023 End: 04-26-2023 Evaluation and management of inpatient Dr. Talya Nichols Work Phone: [facility] Work Phone: Start: 04-23-2023 End: 04-23-[address] Talya Nichols Work Phone: [facility] Work Phone: Start: 04-13-2023 End: 04-13-2023 ambulatory TALYA NICHOLS DO Facility:[facility] Start: 04-13-2023 End: 04-13-2023 Patient encounter procedure TALYA NICHOLS DO [facility] Start: 04-07-2023 End: 04-07-2023 Emergency department patient visit Dr. Talya Nichols Work Phone: [facility] Work Phone: Start: 04-02-2023 End: 04-02-[address] Talya Nichols Work Phone: [facility] Work Phone: Start: 04-02-2023 Non-patient / Non-visit Dr. Talya Nichols Work Phone: [facility] Start: 04-02-2023 End: 04-02-2023 Admission to same day surgery center Dr. Talya Nichols Work Phone: [facility] Work Phone: Start: 04-02-2023 End: 04-02-[address] Talya Nichols Work Phone: [facility] Work Phone: Start: 03-21-2023 End: 03-21-2023 Patient encounter procedure KHURRAM ERICKSON MD [facility] Start: 03-21-2023 End: 03-21-2023 ambulatory TALYA NICHOLS DO Facility:B Start: 03-09-2023 Non-patient / Non-visit Dr. Talya Nichols Work Phone: [facility] Start: 03-09-2023 Non-patient / Non-visit Dr. Talya Nichols Work Phone: [facility] Work Phone: Start: 03-08-2023 Non-patient / Non-visit Dr. Talya Nichols Work Phone: [facility] Start: 03-08-2023 Non-patient / Non-visit Dr. Talya Nichols Work Phone: [facility] Work Phone: Start: 03-07-2023 Non-patient / Non-visit Dr. Talya Nichols Work Phone: [facility] Start: 03-07-2023 End: 03-09-2023 Evaluation and management of inpatient Dr. Talya Nichols Work Phone: [facility] Work Phone: Start: 02-28-2023 End: 02-28-2023 ambulatory TALYA NICHOLS DO Facility:B Start: 02-28-2023 End: 02-28-2023 Patient encounter procedure TALYA NICHOLS DO [facility] Start: 02-21-2023 End: 02-25-2023 ambulatory TALYA NICHOLS DO Facility:B Start: 02-21-2023 End: 02-21-[address] Talya Nichols Work Phone: [facility] Work Phone: Start: 02-20-2023 End: 02-20-2023 ambulatory TALYA NICHOLS DO Facility:B Start: 02-20-2023 End: 02-20-2023 Patient encounter procedure KHURRAM ERICKSON MD [facility] Start: 02-15-2023 Non-patient / Non-visit Dr. Talya Nichols Work Phone: [facility] Work Phone: Start: 02-14-2023 Non-patient / Non-visit Dr. Talya Nichols Work Phone: [facility] Work Phone: Start: 02-14-2023 Non-patient / Non-visit Dr. Talya Nichols Work Phone: [facility] Start: 02-13-2023 End: 02-15-2023 Evaluation and management of inpatient Dr. Talya Nichols Work Phone: [facility] Work Phone: Start: 02-08-2023 End: 02-08-2023 Emergency department patient visit Dr. Talya Nichols Work Phone: [facility] Work Phone: Start: 02-07-2023 End: 02-07-2023 ambulatory TALYA NICHOLS DO Facility:B Start: 02-07-2023 End: 02-07-2023 Patient encounter procedure TALYA NICHOLS DO [facility] Start: 02-02-2023 End: 02-02-2023 ambulatory TALYA NICHOLS DO Facility:B Start: 02-02-2023 End: 02-02-2023 Patient encounter procedure TALYAMICHAEL NICHOLS DO [facility] Start: 01-23-2023 End: 01-23-2023 ambulatory TALYA NICHOLS DO Facility:B Start: 01-19-2023 End: 01-19-2023 ambulatory TALYA NICHOLS DO Facility:B Start: 01-19-2023 End: 01-19-2023 Patient encounter procedure TALYA Brenner MAGDALENA DO [facility] Start: 01-19-2023 End: 01-19-2023 Well adult monitoring check done TALYA NICHOLS DO [facility] Start: 01-19-2023 End: 01-19-2023 ambulatory TALYA NICHOLS DO Facility:B Start: 12-11-2022 End: 12-11-[address] Talya Nichols Work Phone: [facility] Work Phone: Start: 12-11-2022 End: 12-11-[address] Talya Nichols Work Phone: [facility] Start: 11-28-2022 End: 11-28-2022 ambulatory ANCA TY MD Facility:B Start: 11-28-2022 End: 11-28-2022 Patient encounter procedure ANCA TY MD [facility] Start: 11-24-2022 End: 11-24-2022 ambulatory MELONIE BULLARD WORKPLACE TRAINER AND ASSESSOR - ACTIVE DIRECTORY ENGINEER Facility:B Start: 11-24-2022 End: 11-24-2022 Patient encounter procedure MELONIE BULLARD WORKPLACE TRAINER AND ASSESSOR - ACTIVE DIRECTORY ENGINEER [facility] Start: 11-18-2022 Non-patient / Non-visit Dr. Talya Nichols Work Phone: [facility] Work Phone: Start: 11-17-2022 Non-patient / Non-visit Dr. Talya Nichols Work Phone: [facility] Work Phone: Start: 11-16-2022 Non-patient / Non-visit Dr. Talya Nichols Work Phone: [facility] Start: 11-16-2022 End: 11-18-2022 Evaluation and management of inpatient [facility] Work Phone: Start: 11-08-2022 End: 11-08-2022 ambulatory TALYA NICHOLS DO Facility:B Start: 11-08-2022 End: 11-08-2022 Patient encounter procedure TALYA NICHOLS DO [facility] Start: 10-31-2022 End: 10-31-2022 ambulatory TALYA NICHOLS DO Facility:B Start: 10-24-2022 End: 10-24-2022 ambulatory TALYA NICHOLS DO Facility:B Start: 10-24-2022 End: 10-24-2022 Patient encounter procedure TALYA NICHOLS DO [facility] Start: 10-22-2022 End: 10-23-2022 Emergency department patient visit Dr. Talya Nichols Work Phone: [facility] Work Phone: Start: 10-19-2022 End: 10-19-2022 ambulatory TALYA NICHOLS DO Facility:B Start: 07-06-2022 End: 07-06-[address] Talya Nichols Work Phone: [facility] Work Phone: Start: 06-16-2022 End: 06-16-2022 Patient encounter procedure PACO VAZQUEZ WORKPLACE TRAINER AND ASSESSOR-ACTIVE DIRECTORY ENGINEER [facility] Start: 06-09-2022 End: 06-09-2022 Patient encounter procedure PACO VAZQUEZ WORKPLACE TRAINER AND ASSESSOR-ACTIVE DIRECTORY ENGINEER [facility] Start: 06-06-2022 End: 06-06-2022 Patient encounter procedure TALYA NICHOLS DO [facility] Start: 05-25-2022 Non-patient / Non-visit Dr. Talya Nichols Work Phone: [facility] Start: 05-24-2022 End: 05-26-2022 Evaluation and management of inpatient Dr. Talya Nichols Work Phone: [facility] Start: 05-24-2022 End: 05-26-[address] Talya Nichols Work Phone: [facility] Work Phone: Start: 05-02-2022 End: 05-02-[address] Talya Nichols Work Phone: [facility] Start: 04-13-2022 Non-patient / Non-visit Dr. Talya Nichols Work Phone: [facility] Start: 04-12-2022 Non-patient / Non-visit Dr. Talya Nichols Work Phone: [facility] Start: 04-11-2022 Non-patient / Non-visit Dr. Talya Nichols Work Phone: [facility] Start: 04-11-2022 End: 04-13-2022 Evaluation and management of inpatient Dr. Talya Nichols Work Phone: [facility] Start: 03-22-2022 End: 03-22-2022 Patient encounter procedure TALYA NICHOLS DO [facility] Start: 03-16-2022 Non-patient / Non-visit Dr. Talya Nichols Work Phone: [facility] Start: 03-16-2022 Non-patient / Non-visit Dr. Talya Nichols Work Phone: [facility] Start: 03-15-2022 Non-patient / Non-visit Dr. Talya Nichols Work Phone: [facility] Start: 03-15-2022 Non-patient / Non-visit Dr. Talya Nichols Work Phone: [facility] Start: 03-14-2022 Non-patient / Non-visit Dr. Talya Nichols Work Phone: [facility] Start: 03-14-2022 Non-patient / Non-visit Dr. Talya Nichols Work Phone: [facility] Start: 03-13-2022 Non-patient / Non-visit Dr. Talya Nichols Work Phone: [facility] Start: 03-13-2022 Non-patient / Non-visit Dr. Talya Nichols Work Phone: [facility] Start: 03-12-2022 Non-patient / Non-visit Dr. Talya Nichols Work Phone: [facility] Start: 03-12-2022 Non-patient / Non-visit Dr. Talya Nichols Work Phone: [facility] Start: 03-12-2022 End: 03-16-2022 Evaluation and management of inpatient Dr. Talya Nichols Work Phone: [facility] Start: 01-03-2022 End: 01-03-2022 Patient encounter procedure PACO VAZQUEZ WORKPLACE TRAINER AND ASSESSOR-ACTIVE DIRECTORY ENGINEER [facility] Start: 12-16-2021 Non-patient / Non-visit Dr. Talya Nichols Work Phone: [facility] Start: 12-15-2021 Non-patient / Non-visit Dr. Talya Nichols Work Phone: [facility] Start: 12-14-2021 End: 12-16-2021 Non-patient / Non-visit Dr. Talya Nichols Work Phone: [facility] Start: 12-13-2021 End: 12-16-2021 Evaluation and management of inpatient Dr. Talya Nichols Work Phone: [facility] 3 Start: 12-13-2021 End: 12-16-[address] Talya Nichols Work Phone: [facility] Work Phone: Start: 12-08-2021 End: 12-08-2021 Emergency department patient visit [facility] Start: 11-24-2021 End: 11-24-2021 Patient encounter procedure TALYA NICHOLS DO [facility] Start: 04-23-2021 End: 04-23-2021 Emergency department patient visit RADHA YADAV MD [facility] Procedures Date Procedure Procedure Detail Performing Clinician Start: 08-01-2024 Serum inorganic phosphate measurement Dr. Yuridia Hernandez MD Work Phone: Start: 07-04-[address] Yuridia Hernandez MD Work Phone: Start: 06-30-2024 X-ray of chest, PA and lateral views Dr. Yuridia Hernandez MD Work Phone: Start: 06-25-[address] Yuridia Hernandez MD Work Phone: Start: 06-23-2024 Plain chest X-ray Dr. Yuridia Hernandez MD Work Phone: Start: 06-23-2024 [address] acid [address] Yuridia hernandez MD Work Phone: Start: 06-23-[address] Yuridia Hernandez MD Work Phone: Start: 06-23-2024 SARS-CoV-2, Influenza & RSV (PCR) Dr. Mike Hernandez MD Work Phone: Start: 05-28-[address] Yuridia Hernandez MD Work Phone: Start: 05-28-[address] Yuridia Hernandez MD Work Phone: Start: 05-28-2024 Total iron binding capacity measurement Dr. Yuridia Hernandez MD Work Phone: Start: 03-24-2024 Assay of phosphorus inorganic Dr. Yuridia glover MD Work Phone: Start: 03-24-[address] Yuridia Hernandez MD Work Phone: Start: 03-24-2024 Measurement of C-reactive protein using high sensitivity technique Dr. Yuridia Hernandez MD Work Phone: Comment on above: C-Reactive Protein (CRP) provides useful information for thediagnosis, therapy and monitoring of inflammatory processesand associated diseases. For the evaluation of Relative Riskfor Cardiovascular Disease, a High Sensitivity CRP (HSCRP)should be ordered. Start: 03-24-2024 Measurement of renal function Dr. Yuridia glover MD Work Phone: Comment on above: GFR Calc Start: 03-01-[address] Yuridia akers MD Work Phone: Start: 02-28-2024 Plain chest X-ray Dr. Yuridia Hernandez MD Work Phone: Start: 02-28-2024 Measurement of occult blood in stool specimen using immunoassay Dr. Yuridia Hernandez MD Work Phone: Start: 02-28-2024 SARS-CoV-2, Influenza & RSV (PCR) Dr. Mike Hernandez MD Work Phone: Start: 06-27-2023 Plain chest X-ray Dr. Talya Nichols Work Phone: Start: 06-09-2023 Echocardiography DAMARIS POLLARD NADIAACTIVE DIRECTORY ENGINEER Comment on above: (06/09/2023) Summary: 1. Left ventricle: The cavity size is normal. Wall thickness is mildly increased. Systolic function is normal. The estimated ejection fraction is 55-60%. Wall motion is normal; there are no regional wall motion abnormalities. Unable to assess diastolic function. 2. Ventricular septum: Thickness is mildly increased. 3. Aortic valve: There is moderate stenosis. There is trivial regurgitation. The peak systolic velocity is 3.7 m/sec. The mean systolic gradient is 32 mm Hg. The LVOT to aortic valve VTI ratio is 0.29. 4. 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 There is mild regurgitation. 5. Right atrium: The estimated right atrial pressure is 8 mm Hg. Start: 04-30-2023 Plain chest X-ray Dr. Talya Nichols Work Phone: Start: 04-24-2023 Plain chest X-ray Dr. Talya Nichols Work Phone: Start: 04-24-2023 SARS-CoV-2, Influenza & RSV (PCR) Dr. Puma Nichols Work Phone: Start: 04-07-2023 Plain chest X-ray Dr. Talya Nichols Work Phone: Start: 04-02-[address] Talya Raphael Work Phone: Start: 03-09-[address] Vincent Nichols Work Phone: Start: 03-09-[address] Talya Nichols Work Phone: Start: 03-08-[address] Talya Raphael Work Phone: Start: 03-07-2023 Plain chest X-ray Dr. Talya Nichols Work Phone: Start: 03-07-2023 Measurement of occult blood in stool specimen using immunoassay Dr. Talya Nichols Work Phone: Start: 03-07-2023 SARS-CoV-2 & FLU Antigen (Rapid) Dr. Oswaldo Nichols Work Phone: Start: 03-07-[address] Talya Nichols Work Phone: Start: 02-13-2023 Pulmonary ventilation perfusion study Dr. Talya Nichols Work Phone: Start: 02-13-2023 Plain chest X-ray Dr. Talya Nichols Work Phone: Start: 02-13-2023 CT cervical spine without contrast Dr. Maddie Nichols Work Phone: Start: 02-13-2023 CT of head without contrast Dr. Talya Nichols Work Phone: Start: 02-13-2023 Bacteria Detection (PCR) Dr. Talya oneill Work Phone: Start: 02-13-2023 Bacteria identified in Blood by Culture Dr. Talya Nichols Work Phone: Start: 02-08-2023 Plain chest X-ray Dr. Talya Nichols Work Phone: Start: 11-28-2022 Sania NICHOLS DO Comment on above: 1. Left ventricle: The cavity size is no rmal. Wall thickness is normal. Systolic function is normal. The estimated ejection fraction is 60-65%. Wall motion is normal; there are no regional wall motion abnormalities. The stroke index is 21.1 ml/m . The stroke volume index is 24 ml/m . 2. Aortic valve: The valve is trileaflet. The leaflets are moderately calcified. Mobile echodensity in LVOT in PLAX views most likely side lobe artifact from calcified aortic valve leaflet; asymmetric leaflet calcification - severe NC leaflet calcification, clinical correlation suggested. Cusp separation is severely reduced. There is at least moderate stenosis. There is mild regurgitation. 3. Mitral valve: In some views The annulus is moderately calcified. The leaflets are mildly thickened. Trans-mitral gradient increased most likely due to functional mitral stenosis from mitral annular calcification The mean diastolic gradient is 4 mm Hg. 4. Right atrium: The estimated right atrial pressure is 3 mm Hg. 5. Inferior vena cava: The IVC is small. Recommendations: 1. Suggest JEREMY to better visualize aortic valve leaflets and assess . 2. Consider aortic valve calcium score assessment Start: 11-17-[address] Talya Raphael Work Phone: Start: 11-16-2022 Plain chest X-ray Start: 11-16-2022 Measurement of occult blood in stool specimen using immunoassay Start: 11-16-2022 Viral antigen assay Start: 10-22-2022 Plain chest X-ray Dr. Talya Nichols Work Phone: Start: 05-24-2022 Plain chest X-ray Dr. Talya Nichols Work Phone: Start: 04-11-2022 Plain chest X-ray Dr. 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 Talya Nichols Work Phone: Start: 12-14-[address] Talya Raphael Work Phone: Start: 12-08-2021 Plain x-ray of elbow Start: 12-08-2021 Radiography of ankle Start: 09-29-2018 Extraction of cataract RADHA Kramer MD Comment on above: OU Respiratory Panel (PCR) Dr. Talya Nichols Work Phone: SARS-CoV-2 & FLU Antigen (Rapid) Dr. Talya Nichols Work Phone: SARS-CoV-2 & FLU Antigen (Rapid) Dr. Talya Nichols Work Phone: SARS-CoV-2 & FLU Antigen (Rapid) Dr. Talya Nichols Work Phone: Viral antigen assay Dr. Vincent Nichols Work Phone: Viral antigen assay Dr. Vincent Nichols Work Phone: Plan of Treatment Date Care Activity Detail Author Start: 06-25-2024 Patient discharge [facility] Start: 06-24-2024 [facility] Start: 06-23-2024 Application of elastic bandage [facility] Start: 06-23-2024 Assessment of risk of venous thromboembolism [facility] Start: 06-23-2024 [facility] Start: 06-23-2024 Fall prevention [facility] Start: 06-23-[address] [facility] Start: 06-23-2024 Insertion of catheter into peripheral vein [facility] Start: 06-23-2024 Introduction of urinary catheter [facility] Start: 06-23-2024 Measuring intake and output [facility] Start: 06-23-2024 Methicillin resistant Staphylococcus aureus screening test [facility] Start: 06-23-2024 Notification of physician [facility] Start: 06-23-2024 Oxygen therapy [facility] Start: 06-23-2024 Providing care according to standard [facility] Start: 06-23-2024 Provision of activity privileges [facility] Start: 06-23-2024 Referral to occupational therapist [facility] Start: 06-23-2024 Referral to service [facility] Start: 06-23-2024 End: 06-23-2024 [facility] Start: 06-23-2024 Following clinical pathway protocol [facility] Start: 06-23-2024 Verification routine [facility] Start: 06-23-2024 Respiratory pathogens DNA and RNA panel - Respiratory specimen by JOSH with probe detection [facility] Start: 06-23-2024 Admission procedure [facility] Start: 06-23-2024 Hospital admission, emergency, from emergency room, medical nature [facility] Start: 06-23-2024 [facility] Start: 03-02-2024 Patient discharge [facility] Start: 02-29-2024 [facility] Start: 02-29-2024 Referral to gastroenterology service [facility] Start: 02-29-2024 Application of intermittent pneumatic compression device [facility] Start: 02-28-2024 Following clinical pathway protocol [facility] Start: 02-28-2024 Transfusion of blood product [facility] Start: 02-28-2024 Assessment of risk of venous thromboembolism [facility] Start: 02-28-2024 [facility] regimes [facility] Start: 02-28-2024 Insertion of catheter into peripheral vein [facility] Start: 02-28-2024 Measuring intake and output [facility] Start: 02-28-2024 Notification of physician [facility] Start: 02-28-2024 Oxygen therapy [facility] Start: 02-28-2024 Providing care according to standard [facility] Start: 02-28-2024 Provision of activity privileges [facility] Start: 02-28-2024 Referral to occupational therapist [facility] Start: 02-28-2024 Referral to service [facility] Start: 02-28-2024 End: 02-28-2024 [facility] Start: 02-28-2024 Admission procedure [facility] Start: 02-28-2024 Administration of blood product [facility] Start: 02-28-[address] [facility] Start: 02-28-2024 Patient referral to [facility] Start: 06-27-2023 [facility] Start: 05-01-2023 [facility] Start: 04-26-2023 Patient discharge [facility] Start: 04-25-2023 Referral to service [facility] Start: 04-25-2023 Referral to lpn rn hospice [facility] Start: 04-25-[address] [facility] Start: 04-24-2023 Assessment of risk of venous thromboembolism [facility] Start: 04-24-2023 [facility] Start: 04-24-2023 Catheterization of vein [facility] Start: 04-24-2023 Elevation of affected extremity [facility] Start: 04-24-2023 Insertion of catheter into peripheral vein [facility] Start: 04-24-2023 Measuring intake and output [facility] Start: 04-24-2023 Notification of physician [facility] Start: 04-24-2023 Patient education [facility] Start: 04-24-2023 Patient referral to [facility] Start: 04-24-2023 Providing care according to standard [facility] Start: 04-24-2023 Provision of activity privileges [facility] Start: 04-24-2023 Referral to occupational therapist [facility] Start: 04-24-2023 Referral to service [facility] Start: 04-24-2023 [facility] Start: 04-24-2023 Following clinical pathway protocol [facility] Start: 04-24-2023 Verification routine [facility] Start: 04-24-2023 Admission procedure [facility] Start: 04-24-2023 Electrocardiographic procedure [facility] Start: 04-24-2023 Hospital admission, emergency, from emergency room, medical nature [facility] Start: 04-24-2023 Oxygen therapy [facility] Start: 04-24-2023 [facility] Start: 04-07-2023 [facility] Start: 04-07-2023 [facility] Start: 04-02-2023 Egd insert guide wire dilator passage esophagus EGD GUIDE WIRE INSERTION [facility] Start: 04-02-2023 Patient discharge [facility] Start: 03-09-2023 Enteric Bacteriology Enteric Bacteriology [facility] Start: 03-09-2023 Patient discharge [facility] Start: 03-08-2023 Referral to service [facility] Start: 03-08-2023 [facility] Start: 03-08-2023 Notification of physician [facility] Start: 03-08-2023 [facility] Start: 03-08-2023 Enteric precautions [facility] Start: 03-08-[address] [facility] Start: 03-07-2023 Following clinical pathway protocol [facility] Start: 03-07-2023 Application of intermittent pneumatic compression device [facility] Start: 03-07-2023 Assessment of risk of venous thromboembolism [facility] Start: 03-07-2023 Insertion of catheter into peripheral vein [facility] Start: 03-07-2023 Oxygen therapy [facility] Start: 03-07-2023 Providing care according to standard [facility] Start: 03-07-2023 Provision of activity privileges [facility] Start: 03-07-2023 Referral to gastroenterology service [facility] Start: 03-07-2023 Referral to occupational therapist [facility] Start: 03-07-2023 Referral to service [facility] Start: 03-07-2023 [facility] Start: 03-07-2023 Verification routine [facility] Start: 03-07-2023 Admission procedure [facility] Start: 03-07-2023 Leukocyte reduced red blood cells [facility] Start: 03-07-2023 [facility] Start: 03-07-2023 Hospital admission, emergency, from emergency room, medical nature [facility] Start: 03-07-2023 Administration of blood product [facility] Start: 03-07-2023 [facility] Start: 02-15-2023 Patient discharge [facility] Start: 02-14-2023 Referral to occupational therapist [facility] Start: 02-14-2023 Referral to service [facility] Start: 02-14-2023 Thyroid stimulating hormone measurement [facility] Start: 02-14-2023 [facility] Start: 02-14-2023 Administration of blood product [facility] Start: 02-14-2023 Following clinical pathway protocol [facility] Start: 02-14-2023 Consultation [facility] Start: 02-14-[address] [facility] Start: 02-13-2023 Oxygen therapy [facility] Start: 02-13-2023 [facility] Start: 02-13-2023 Notification of physician [facility] Start: 02-13-2023 Provision of activity privileges [facility] Start: 02-13-2023 Assessment of risk of venous thromboembolism [facility] Start: 02-13-2023 Insertion of catheter into peripheral vein [facility] Start: 02-13-2023 Measuring intake and output [facility] Start: 02-13-2023 Providing care according to standard [facility] Start: 02-13-2023 Respiratory therapy [facility] Start: 02-13-2023 Verification routine [facility] Start: 02-13-2023 End: 02-13-2023 [facility] Start: 02-13-2023 Admission procedure [facility] Start: 02-13-2023 End: 02-13-2023 Blood culture [facility] Start: 02-13-2023 Pulmonary ventilation perfusion study [facility] Start: 02-13-2023 [facility] Start: 02-13-2023 Bacteria identified in Blood by Culture Blood Culture [facility] Start: 02-08-2023 [facility] Start: 02-08-2023 [facility] Start: 11-18-2022 Patient discharge [facility] Start: 11-17-2022 Referral to service [facility] Start: 11-17-2022 Referral to service [facility] Start: 11-17-2022 Oxygen therapy [facility] Start: 11-17-2022 Notification of physician [facility] Start: 11-17-2022 Referral to gastroenterology service [facility] Start: 11-17-2022 [facility] Start: 11-17-2022 Administration of blood product [facility] Start: 11-16-2022 Care planning and problem solving actions [facility] Start: 11-16-2022 Transfusion of blood product [facility] Start: 11-16-2022 [facility] Start: 11-16-2022 Administration of blood product [facility] Start: 11-16-2022 Following clinical pathway protocol [facility] Start: 11-16-2022 Leukocyte reduced red blood cells [facility] Start: 11-16-2022 [facility] Start: 11-16-2022 Admission procedure [facility] Start: 11-16-2022 Administration of blood product [facility] Start: 11-16-2022 [facility] Start: 11-16-2022 Patient referral to dietitian [facility] Start: 10-22-2022 [facility] Start: 05-26-2022 Patient discharge [facility] Start: 05-24-2022 Dual pressure spontaneous ventilation support [facility] Start: 05-24-2022 Fluid restriction [facility] Start: 05-24-2022 Following clinical pathway protocol [facility] Start: 05-24-2022 Assessment of risk of venous thromboembolism [facility] Start: 05-24-2022 [facility] Start: 05-24-2022 Incentive spirometry [facility] Start: 05-24-2022 Insertion of catheter into peripheral vein [facility] Start: 05-24-2022 Measuring intake and output [facility] Start: 05-24-2022 Oxygen therapy [facility] Start: 05-24-2022 Providing care according to standard [facility] Start: 05-24-2022 Provision of activity privileges [facility] Start: 05-24-2022 Referral to occupational therapist [facility] Start: 05-24-2022 Referral to service [facility] Start: 05-24-2022 [facility] Start: 05-24-2022 Verification routine [facility] Start: 05-24-2022 Admission procedure [facility] Start: 05-24-[address] [facility] Start: 04-13-2022 Patient discharge [facility] Start: 04-11-2022 Following clinical pathway protocol [facility] Start: 04-11-2022 Assessment of risk of venous thromboembolism [facility] Start: 04-11-2022 Catheterization [facility] Start: 04-11-2022 Incentive spirometry [facility] Start: 04-11-2022 Insertion of catheter into peripheral vein [facility] Start: 04-11-2022 Measuring intake and output [facility] Start: 04-11-2022 Oxygen therapy [facility] Start: 04-11-2022 Providing care according to standard [facility] Start: 04-11-2022 Provision of activity privileges [facility] Start: 04-11-2022 [facility] Start: 04-11-2022 Notification of physician [facility] Start: 04-11-2022 Admission procedure [facility] Start: 04-11-2022 End: 04-11-2022 [facility] Start: 03-16-2022 Patient discharge [facility] Start: 03-15-2022 Patient referral [facility] Work Phone: Start: 03-15-2022 End: 03-15-2022 [facility] Start: 03-15-2022 Notification of physician [facility] Start: 03-15-2022 Provision of activity privileges [facility] Start: 03-15-2022 Scheduling [facility] Start: 03-15-2022 Taking patient vital signs [facility] Start: 03-15-2022 Vascular disease risk assessment [facility] Start: 03-15-[address] [facility] Start: 03-14-2022 Catheter[facility] of [facility] Start: 03-14-2022 Medication not administered [facility] Start: 03-14-2022 Notification of physician [facility] Start: 03-14-2022 Preoperative care [facility] Start: 03-14-2022 [facility] Start: 03-14-2022 [facility] Start: 03-13-2022 Catheter[facility] of [facility] Start: 03-13-2022 Medication not administered [facility] Start: 03-13-2022 Notification of physician [facility] Start: 03-13-2022 Preoperative care [facility] Start: 03-13-2022 [facility] Start: 03-12-2022 Referral to service [facility] Start: 03-12-2022 Referral to occupational therapist [facility] Start: 03-12-2022 Referral to lpn rn hospice [facility] Start: 03-12-2022 Patient referral to dietitian [facility] Start: 03-12-2022 Assessment of risk of venous thromboembolism [facility] Start: 03-12-2022 [facility] Start: 03-12-2022 Elevation of affected extremity [facility] Start: 03-12-2022 Fluid restriction [facility] Start: 03-12-2022 Incentive spirometry [facility] Start: 03-12-2022 Insertion of catheter into peripheral vein [facility] Start: 03-12-2022 Measuring intake and output [facility] Start: 03-12-2022 Notification of physician [facility] Start: 03-12-2022 Oxygen therapy [facility] Start: 03-12-2022 Patient education [facility] Start: 03-12-2022 Providing care according to standard [facility] Start: 03-12-2022 Provision of activity privileges [facility] Start: 03-12-2022 Referral to [facility] Start: 03-12-2022 [facility] Start: 03-12-2022 Following clinical pathway protocol [facility] Start: 03-12-2022 Admission procedure [facility] Start: 12-16-2021 Patient discharge [facility] Start: 12-14-2021 Application of intermittent pneumatic compression device [facility] Start: 12-13-2021 Consultation for treatment [facility] Start: 12-13-2021 Assessment of risk of venous thromboembolism [facility] Start: 12-13-2021 [facility] Start: 12-13-2021 Fall prevention [facility] Start: 12-13-2021 Incentive spirometry [facility] Start: 12-13-[address] [facility] Start: 12-13-2021 Insertion of catheter into peripheral vein [facility] Start: 12-13-2021 Introduction of urinary catheter [facility] Start: 12-13-2021 Measuring intake and output [facility] Start: 12-13-2021 Oxygen therapy [facility] Start: 12-13-2021 Providing care according to standard [facility] Start: 12-13-2021 Provision of activity privileges [facility] Start: 12-13-2021 Referral to occupational therapist [facility] Start: 12-13-2021 Referral to service [facility] Start: 12-13-2021 [facility] Start: 12-13-2021 Following clinical pathway protocol [facility] Start: 12-13-2021 Verification routine [facility] Work Phone: Start: 12-13-2021 Admission procedure [facility] Start: 12-13-2021 [facility] Start: 12-08-[address] [facility] Work Phone: Alanine aminotransfe rase [Enzymatic activity/volume] in Serum or Plasma [facility] Albumin [Mass/volume ] in Serum or Plasma [facility] Alkaline phosphatase [Enzymatic activity/volume] in Serum or Plasma [facility] Anion gap measurement [facility] Aspartate aminotrans ferase [Enzymatic activity/volume] in Serum or Plasma [facility] Bilirubin, total measurement [facility] BUN/Creatinine ratio [facility] Calcium [Mass/volume ] in Serum or Plasma [facility] Carbon dioxide, tota l [Moles/volume] in Serum or Plasma [facility] CBC W Auto Different ial panel - Blood [facility] Chloride [Moles/volu me] in Serum or Plasma [facility] Cobalamin (Vitamin B 12) [Mass/volume] in Serum or Plasma [facility] Comprehensive metabo lic 2000 panel - Serum or Plasma [facility] Creatinine [Moles/vo lume] in Serum or Plasma [facility] Ferritin [Mass/volum e] in Serum or Plasma [facility] Folate [Moles/volume ] in Serum or Plasma [facility] Gastrointestinal pat hogens panel - Stool by JOSH with probe detection [facility] Giardia lamblia Ag [ Presence] in Stool by Immunoassay [facility] Glucose [Mass/volume ] in Serum or Plasma [facility] Hematocrit [Volume F raction] of Blood [facility] Hemoglobin [Mass/vol ume] in Blood [facility] Iron and Iron bindin g capacity panel - Serum or Plasma [facility] Leukocytes [#/volume] in Blood [facility] Magnesium [Mass/volu me] in Serum or Plasma [facility] Magnesium measurement [facility] Magnesium measurement [facility] Mean corpuscular hem oglobin concentration determination [facility] Mean corpuscular hem oglobin determination [facility] Measurement of renal function [facility] Neutrophil count [facility] Neutrophil percent differential count [facility] Patient Education [facility] Work Phone: Patient referral [facility] Work Phone: Platelets [#/volume] in Blood [facility] Potassium [Moles/vol ume] in Serum or Plasma [facility] Red blood cell count [facility] Red cell distributio n width determination [facility] Reticulocyte count [facility] Serum inorganic phos phate measurement [facility] Sodium [Moles/volume ] in Serum or Plasma [facility] Total protein measurement [facility] Troponin T.cardiac [Mass/volume] in Serum or Plasma by High sensitivity method [facility] Urea nitrogen [Mass/ volume] in Serum or Plasma [facility] Immunizations Immunization Date Immunization Notes Care Provider [facility] 01-19-2023 Pneumococcal conjuga te PCV20, polysaccharide ODR642 conjugate, adjuvant, PF; Translations: [Prevnar 20] TALYA NICHOLS DO [facility] 12-14-2022 influenza, injectabl e, quadrivalent, preservative free Dr. Yuridia Hernandez MD Work Phone: [facility] 12-14-2022 influenza, high dose seasonal, preservative-free; Translations: [Fluad Quadrivalent PF ] TALYA NICHOLS DO [facility] 12-28-[address] [employer] [address]. Talya Nichols Work Phone: [facility] 12-28-2021 SARS-CoV-2 (CV19)mRNA-1273 bivalent vac TALYA NICHOLS DO [facility] 12-28-2021 SARSCoV2 (CV19)mRNA-1273(6y+ bival spencer TALYA NICHOLS DO [facility] 12-27-2021 influenza virus vacc ine, unspecified formulation TALYA NICHOLS DO [facility] 12-27-2021 influenza, injectabl e, quadrivalent, preservative free [facility] 12-27-2021 influenza, seasonal, injectable Dr. Talya Nichols Work Phone: [facility] 01-10-2021 SARS-CoV-2 mRNA (tozinameran) vaccine RADHA YADAV MD [facility] 11-08-2020 influenza virus vacc ine, unspecified formulation RADHA YADAV MD [facility] 06-19-2020 SARS-CoV-2 mRNA (tozinameran) vaccine RADHA YADAV MD [facility] 05-25-2020 SARS-CoV-2 mRNA (tozinameran) vaccine RADHA YADAV MD [facility] 11-19-2019 influenza virus vacc ine, unspecified formulation RADHA YADAV MD [facility] 12-23-2018 influenza virus vacc ine, unspecified formulation RADHA YADAV MD [facility] 01-31-2016 pneumococcal polysaccharide vaccine, 23 valent RADHA YADAV MD [facility] 07-31-2014 pneumococcal polysaccharide vaccine, 23 valent RADHA YADAV MD [facility] 12-09-2009 tetanus and diphther ia toxoids, adsorbed, preservative free, for adult use (5 Lf of tetanus toxoid and 2 Lf of diphtheria toxoid) RADHA YADAV MD [facility] Payers Date Payer Category Payer Self-pay [id number] 2023 Medicare [id number] 2013 Medicare [id number] 1940 Unknown [id number] 2.16.8 40.1.147723.3.579.2. 1939 Unknown [id number] 2.16.8 40.1.112513.3.579.2.627 1939 Unknown [id number] 2.16.8 40.1.124841.3.579.2.7 1939 Unknown [id number] 2.16.8 40.1.646362.3.579.2.627 1939 Unknown [id number] 2.16.8 40.1.753610.3.579.2.7 1939 Unknown [id number] 2.16.8 40.1.341470.3.579.2.627 1939 Unknown [id number] 2.16.8 40.1.538087.3.579.2.627 1939 Unknown [id number] 2.16.8 40.1.629058.3.579.2.627 1939 Unknown [id number] 2.16.8 40.1.025280.3.579.2.627 1939 Unknown [id number] 2.16.8 40.1.663468.3.579.2.627 1939 Unknown [id number] 2.16.8 40.1.105057.3.579.2.62 1939 Unknown [id number] 2.16.8 40.1.126260.3.579.2.62 1939 Unknown [id number] 2.16.8 40.1.331012.3.579.2.62 1939 Unknown [id number] 2.16.8 40.1.769824.3.579.2.62 1939 Unknown [id number] 2.16.8 40.1.723876.3.579.2.62 1939 Unknown [id number] 2.16.8 40.1.490221.3.579.2.627 1939 Unknown [id number] 2.16.8 40.1.814508.3.579.2.62 1939 Unknown [id number] 2.16.8 40.1.838462.3.579.2.627 1939 Unknown [id number] 2.16.8 40.1.032525.3.579.2.62 1939 Unknown [id number] 2.16.8 40.1.958561.3.579.2.627 1939 Unknown [id number] 2.16.8 40.1.195839.3.579.2.627 1939 Unknown [id number] 2.16.8 40.1.389088.3.579.2.627 1939 Unknown [id number] 2.16.8 40.1.971092.3.579.2.627 1939 Unknown [id number] 2.16.8 40.1.349632.3.579.2.62 1939 Unknown [id number] 2.16.8 40.1.092555.3.579.2.627 1939 Unknown [id number] 2.16.8 40.1.760374.3.579.2.62 1939 Unknown [id number] 2.16.8 40.1.530919.3.579.2.627 1939 Unknown [id number] 2.16.8 40.1.403975.3.579.2.627 Unknown [id number] 2.16.8 40.1.259305.3.579.2.462 Unknown [id number] 2.16.8 40.1.669575.3.579.2.462 Unknown [id number] 2.16.8 40.1.363425.3.579.2.462 Unknown [id number] 2.16.8 40.1.211977.3.579.2.462 Unknown [id number] 2.16.8 40.1.959978.3.579.2.462 Unknown [id number] 2.16.8 40.1.449734.3.579.2.462 Unknown [id number] 2.16.8 40.1.870306.3.579.2.462 Unknown [id number] 2.16.8 40.1.233481.3.579.2.462 Unknown [id number] 2.16.8 40.1.925629.3.579.2.462 Unknown [id number] 2.16.8 40.1.057960.3.579.2.462 Unknown [id number] 2.16.8 40.1.294761.3.579.2.462 Unknown [id number] 2.16.8 40.1.462786.3.579.2.462 Unknown [id number] 2.16.8 40.1.829764.3.579.2.462 Unknown [id number] 2.16.8 40.1.629361.3.579.2.462 Unknown [id number] 2.16.8 40.1.437286.3.579.2.462 Unknown [id number] 2.16.8 40.1.482147.3.579.2.462 Unknown [id number] 2.16.8 40.1.797209.3.579.2.462 Unknown [id number] 2.16.8 40.1.805829.3.579.2.462 Unknown [id number] 2.16.8 40.1.176855.3.579.2.462 Unknown [id number] 2.16.8 40.1.443550.3.579.2.462 Unknown [id number] 2.16.8 40.1.733470.3.579.2.462 Unknown [id number] 2.16.8 40.1.694052.3.579.2.462 Unknown [id number] 2.16.8 40.1.323840.3.579.2.462 Unknown [id number] 2.16.8 40.1.948978.3.579.2.462 Unknown [id number] 2.16.8 40.1.346058.3.579.2.462 Unknown [id number] 2.16.8 40.1.006828.3.579.2.462 Unknown [id number] 2.16.8 40.1.545600.3.579.2.462 Unknown [id number] 2.16.8 40.1.977084.3.579.2.462 Unknown [id number] 2.16.8 40.1.824773.3.579.2.462 Unknown [id number] 2.16.8 40.1.731998.3.579.2.462 Unknown [id number] 2.16.8 40.1.169384.3.579.2.462 Unknown [id number] 2.16.8 40.1.513498.3.579.2.462 Unknown [id number] 2.16.8 40.1.216670.3.579.2.462 Unknown [id number] 2.16.8 40.1.013741.3.579.2.462 Unknown [id number] 2.16.8 40.1.207587.3.579.2.462 Unknown [id number] 2.16.8 40.1.769182.3.579.2.462 Unknown [id number] 2.16.8 40.1.572988.3.579.2.462 Unknown [id number] 2.16.8 40.1.465412.3.579.2.462 Unknown [id number] 2.16.8 40.1.144964.3.579.2.462 Unknown [id number] 2.16.8 40.1.710289.3.579.2.462 Unknown [id number] 2.16.8 40.1.507375.3.579.2.462 Unknown [id number] 2.16.8 40.1.093289.3.579.2.462 Unknown [id number] 2.16.8 40.1.248002.3.579.2.462 Unknown [id number] 2.16.8 40.1.487177.3.579.2.462 Unknown [id number] 2.16.8 40.1.550783.3.579.2.462 Unknown [id number] 2.16.8 40.1.531829.3.579.2.462 Unknown [id number] 2.16.8 40.1.166957.3.579.2.462 Unknown [id number] 2.16.8 40.1.299048.3.579.2.462 Unknown [id number] 2.16.8 40.1.942693.3.579.2.462 Unknown [id number] 2.16.8 40.1.070655.3.579.2.462 Unknown [id number] 2.16.8 40.1.571349.3.579.2.462 Unknown [id number] 2.16.8 40.1.811644.3.579.2.462 Unknown [id number] 2.16.8 40.1.838149.3.579.2.462 Unknown [id number] 2.16.8 40.1.133132.3.579.2.462 Unknown [id number] 2.16.8 40.1.839753.3.579.2.462 Unknown [id number] 2.16.8 40.1.835509.3.579.2.462 Unknown [id number] 2.16.8 40.1.236882.3.579.2.462 Unknown [id number] 2.16.8 40.1.291576.3.579.2.462 Unknown [id number] 2.16.8 40.1.505772.3.579.2.462 Unknown [id number] 2.16.8 40.1.982163.3.579.2.462 Unknown [id number] 2.16.8 40.1.997516.3.579.2.462 Unknown [id number] 2.16.8 40.1.506399.3.579.2.462 Unknown [id number] 2.16.8 40.1.490489.3.579.2.462 Unknown [id number] 2.16.8 40.1.873830.3.579.2.462 Unknown [id number] 2.16.8 40.1.288514.3.579.2.462 Unknown [id number] 2.16.8 40.1.610577.3.579.2.462 Unknown [id number] 2.16.8 40.1.799454.3.579.2.462 Social History Date Type Detail Facility Start: 02-27-2019 End: 06-23-2024 Ex-smoker (finding) [facility] Comment on above: no smoke exposure Sex Assigned At [facility] Start: 12-08-2021 End: 06-27-2023 Tobacco smoking status NHIS Unknown if ever smoked [facility] Start: 1940 Sex Assigned At Male [facility] Start: 06-23-2024 End: 06-25-2024 Sex Male (finding) [facility] Medical Equipment Procedure Code Equipment Code Equipment Origin al Text Equipment Identifier Dates Blood Glucose Te st Strips Start: 09-21-2020 See Instructions , One touch ultra blue test strips #60 pt to test twice daily., # 1 EA, 11 Refill(s), Pharmacy: [facility], Controlled diabetes mellitus with hyperglycemia Abnormal blood sugar, 162.4, cm, 07/06/21 13:45:00 EDT, Hei... Start: 09-27-2021 See Instructions , One touch Delica Lancet 33g, 1 box of 100, testing 2 times daily, # 1 EA, 11 Refill(s), Pharmacy: [id number], Controlled diabetes mellitus with hyperglycemia Abnormal blood sugar, 162.5, cm, 10/05/21 14:24:00 EDT, Heigh... Start: 10-26-2021 See Instructions , One touch ultra blue test strips #60 pt to test twice daily., # 1 EA, 11 Refill(s), Pharmacy: [facility], Controlled diabetes mellitus with hyperglycemia Abnormal blood sugar, 162.4, cm, 07/06/21 13:45:00 EDT, Hei... Start: 09-27-2021 See Instructions , One touch Delica Lancet 33g, 1 box of 100, testing 2 times daily, # 1 EA, 11 Refill(s), Pharmacy: [id number], Controlled diabetes mellitus with hyperglycemia Abnormal blood sugar, 162.5, cm, 10/05/21 14:24:00 EDT, Heigh... Start: 10-26-2021 See Instructions , One touch ultra blue test strips #60 pt to test twice daily., # 1 EA, 11 Refill(s), Pharmacy: [facility], Controlled diabetes mellitus with hyperglycemia Abnormal blood sugar, 162.4, cm, 07/06/21 13:45:00 EDT, Hei... Start: 09-27-2021 See Instructions , One touch Delica Lancet 33g, 1 box of 100, testing 2 times daily, # 1 EA, 11 Refill(s), Pharmacy: [id number], Controlled diabetes mellitus with hyperglycemia Abnormal blood sugar, 162.5, cm, 10/05/21 14:24:00 EDT, Heigh... Start: 10-26-2021 See Instructions , One touch ultra blue test strips #60 pt to test twice daily., # 1 EA, 11 Refill(s), Pharmacy: [facility] #[id number], Controlled diabetes mellitus with hyperglycemia Type 2 diabetes mellitus with hemoglobin A1c goal of less than 7.5%, 165... Start: 06-02-2022 See Instructions , One touch Delica Lancet 33g, 1 box of 100, testing 2 times daily, # 1 EA, 11 Refill(s), Pharmacy: [facility] #[id number], Controlled diabetes mellitus with hyperglycemia Type 2 diabetes mellitus with hemoglobin A1c goal of less than 7.5%... Start: 06-02-2022 See Instructions , One touch ultra blue test strips #60 pt to test twice daily., # 1 EA, 11 Refill(s), Pharmacy: [facility] #[id number], Controlled diabetes mellitus with hyperglycemia Type 2 diabetes mellitus with hemoglobin A1c goal of less than 7.5%, 165... Start: 06-02-2022 See Instructions , One touch Delica Lancet 33g, 1 box of 100, testing 2 times daily, # 1 EA, 11 Refill(s), Pharmacy: [facility] #[id number], Controlled diabetes mellitus with hyperglycemia Type 2 diabetes mellitus with hemoglobin A1c goal of less than 7.5%... Start: 06-02-2022 See Instructions , One touch ultra blue test strips #60 pt to test twice daily., # 1 EA, 11 Refill(s), Pharmacy: [facility] #[id number], Controlled diabetes mellitus with hyperglycemia Type 2 diabetes mellitus with hemoglobin A1c goal of less than 7.5%, 165... Start: 06-02-2022 See Instructions , One touch Delica Lancet 33g, 1 box of 100, testing 2 times daily, # 1 EA, 11 Refill(s), Pharmacy: [facility] #[id number], Controlled diabetes mellitus with hyperglycemia Type 2 diabetes mellitus with hemoglobin A1c goal of less than 7.5%... Start: 06-02-2022 See Instructions , One touch ultra blue test strips #60 pt to test twice daily., # 1 EA, 11 Refill(s), Pharmacy: [facility] #[id number], Controlled diabetes mellitus with hyperglycemia Type 2 diabetes mellitus with hemoglobin A1c goal of less than 7.5%, 165.1, cm, 06/02/22 13:23:00 EDT, Height, 85.3, kg, 06/02/22 13:23:00 EDT, Dosing Weight Start: 06-02-2022 See Instructions , One touch Delica Lancet 33g, 1 box of 100, testing 2 times daily, # 1 EA, 11 Refill(s), Pharmacy: [facility] #[id number], Controlled diabetes mellitus with hyperglycemia Type 2 diabetes mellitus with hemoglobin A1c goal of less than 7.5%, 165.1, cm, 06/02/22 13:23:00 EDT, Height, 85.3, kg, 06/02/22 13:23:00 EDT, Dosing Weight Start: 06-02-2022 See Instructions , One touch ultra blue test strips #60 pt to test twice daily., # 1 EA, 11 Refill(s), Pharmacy: [facility] #[id number], Controlled diabetes mellitus with hyperglycemia Type 2 diabetes mellitus with hemoglobin A1c goal of less than 7.5%, 165.1, cm, 06/02/22 13:23:00 EDT, Height, 85.3, kg, 06/02/22 13:23:00 EDT, Dosing Weight Start: 06-02-2022 See Instructions , One touch Delica Lancet 33g, 1 box of 100, testing 2 times daily, # 1 EA, 11 Refill(s), Pharmacy: [facility] #[id number], Controlled diabetes mellitus with hyperglycemia Type 2 diabetes mellitus with hemoglobin A1c goal of less than 7.5%, 165.1, cm, 06/02/22 13:23:00 EDT, Height, 85.3, kg, 06/02/22 13:23:00 EDT, Dosing Weight Start: 06-02-2022 See Instructions , One touch ultra blue test strips #60 pt to test twice daily., # 1 EA, 11 Refill(s), Pharmacy: [facility] #[id number], Controlled diabetes mellitus with hyperglycemia Type 2 diabetes mellitus with hemoglobin A1c goal of less than 7.5%, 165.1, cm, 06/02/22 13:23:00 EDT, Height, 85.3, kg, 06/02/22 13:23:00 EDT, Dosing Weight Start: 06-02-2022 See Instructions , One touch Delica Lancet 33g, 1 box of 100, testing 2 times daily, # 1 EA, 11 Refill(s), Pharmacy: [facility] #[id number], Controlled diabetes mellitus with hyperglycemia Type 2 diabetes mellitus with hemoglobin A1c goal of less than 7.5%, 165.1, cm, 06/02/22 13:23:00 EDT, Height, 85.3, kg, 06/02/22 13:23:00 EDT, Dosing Weight Start: 06-02-2022 See Instructions , One touch ultra blue test strips #60 pt to test twice daily., # 1 EA, 11 Refill(s), Pharmacy: [facility] #[id number], Controlled diabetes mellitus with hyperglycemia Type 2 diabetes mellitus with hemoglobin A1c goal of less than 7.5%, 165.1, cm, 06/02/22 13:23:00 EDT, Height, 85.3, kg, 06/02/22 13:23:00 EDT, Dosing Weight Start: 06-02-2022 See Instructions , One touch Delica Lancet 33g, 1 box of 100, testing 2 times daily, # 1 EA, 11 Refill(s), Pharmacy: [facility] #[id number], Controlled diabetes mellitus with hyperglycemia Type 2 diabetes mellitus with hemoglobin A1c goal of less than 7.5%, 165.1, cm, 06/02/22 13:23:00 EDT, Height, 85.3, kg, 06/02/22 13:23:00 EDT, Dosing Weight Start: 06-02-2022 See Instructions , One touch ultra blue test strips #60 pt to test twice daily., # 1 EA, 11 Refill(s), [facility]acy: [facility] #[id number], Controlled diabetes mellitus with hyperglycemia Type 2 diabetes mellitus with hemoglobin A1c goal of less than 7.5%, 165.1, cm, 06/02/22 13:23:00 EDT, Height, 85.3, kg, 06/02/22 13:23:00 EDT, Dosing Weight Start: 06-02-2022 See Instructions , One touch Delica Lancet 33g, 1 box of 100, testing 2 times daily, # 1 EA, 11 Refill(s), Pharmacy: [facility] #[id number], Controlled diabetes mellitus with hyperglycemia Type 2 diabetes mellitus with hemoglobin A1c goal of less than 7.5%, 165.1, cm, 06/02/22 13:23:00 EDT, Height, 85.3, kg, 06/02/22 13:23:00 EDT, Dosing Weight Start: 06-02-2022 See Instructions , One touch ultra blue test strips #60 pt to test twice daily., # 1 EA, 11 Refill(s), Pharmacy: [facility] #[id number], Controlled diabetes mellitus with hyperglycemia Type 2 diabetes mellitus with hemoglobin A1c goal of less than 7.5%, 165.1, cm, 06/02/22 13:23:00 EDT, Height, 85.3, kg, 06/02/22 13:23:00 EDT, Dosing Weight Start: 06-02-2022 See Instructions , One touch Delica Lancet 33g, 1 box of 100, testing 2 times daily, # 1 EA, 11 Refill(s), Pharmacy: [facility] #[id number], Controlled diabetes mellitus with hyperglycemia Type 2 diabetes mellitus with hemoglobin A1c goal of less than 7.5%, 165.1, cm, 06/02/22 13:23:00 EDT, Height, 85.3, kg, 06/02/22 13:23:00 EDT, Dosing Weight Start: 06-02-2022 See Instructions , One touch ultra blue test strips #60 pt to test twice daily., # 1 EA, 11 Refill(s), [facility]: [facility] #[id number], Controlled diabetes mellitus with hyperglycemia Type 2 diabetes mellitus with hemoglobin A1c goal of less than 7.5%, 165.1, cm, 06/02/22 13:23:00 EDT, Height, 85.3, kg, 06/02/22 13:23:00 EDT, Dosing Weight Start: 06-02-2022 See Instructions , One touch Delica Lancet 33g, 1 box of 100, testing 2 times daily, # 1 EA, 11 Refill(s), [facility]: [facility], Controlled diabetes mellitus with hyperglycemia Type 2 diabetes mellitus with hemoglobin A1c goal of less than 7.5%, 165.1, cm, 06/02/22 13:23:00 EDT, Height, 85.3, kg, 06/02/22 13:23:00 EDT, Dosing Weight Start: 06-02-2022 See Instructions , One touch ultra blue test strips #60 pt to test twice daily., # 1 EA, 11 Refill(s), [facility]: [facility] #[id number], Controlled diabetes mellitus with hyperglycemia Type 2 diabetes mellitus with hemoglobin A1c goal of less than 7.5%, 165.1, cm, 06/02/22 13:23:00 EDT, Height, 85.3, kg, 06/02/22 13:23:00 EDT, Dosing Weight Start: 06-02-2022 See Instructions , One touch Delica Lancet 33g, 1 box of 100, testing 2 times daily, # 1 EA, 11 Refill(s), [facility]: [facility] #[id number], Controlled diabetes mellitus with hyperglycemia Type 2 diabetes mellitus with hemoglobin A1c goal of less than 7.5%, 165.1, cm, 06/02/22 13:23:00 EDT, Height, 85.3, kg, 06/02/22 13:23:00 EDT, Dosing Weight Start: 06-02-2022 See Instructions , One touch ultra blue test strips #60 pt to test twice daily., # 1 EA, 11 Refill(s), [facility]: [facility] #[id number], Controlled diabetes mellitus with hyperglycemia Type 2 diabetes mellitus with hemoglobin A1c goal of less than 7.5%, 165.1, cm, 06/02/22 13:23:00 EDT, Height, 85.3, kg, 06/02/22 13:23:00 EDT, Dosing Weight Start: 06-02-2022 See Instructions , One touch Delica Lancet 33g, 1 box of 100, testing 2 times daily, # 1 EA, 11 Refill(s), Pharmacy: [facility] #[id number], Controlled diabetes mellitus with hyperglycemia Type 2 diabetes mellitus with hemoglobin A1c goal of less than 7.5%, 165.1, cm, 06/02/22 13:23:00 EDT, Height, 85.3, kg, 06/02/22 13:23:00 EDT, Dosing Weight Start: 06-02-2022 See Instructions , One touch ultra blue test strips #60 pt to test twice daily., # 1 EA, 11 Refill(s), Pharmacy: [facility], Controlled diabetes mellitus with hyperglycemia Type 2 diabetes mellitus with hemoglobin A1c goal of less than 7.5%, 160, cm, 03/02/23 8:17:00 EST, Height, 87.7, kg, 03/02/23 8:17:00 EST, Dosing Weight Start: 03-13-2023 See Instructions , One touch Delica Lancet 33g, 1 box of 100, testing 2 times daily, # 1 EA, 11 Refill(s), Pharmacy: [facility] #[id number], Controlled diabetes mellitus with hyperglycemia Type 2 diabetes mellitus with hemoglobin A1c goal of less than 7.5%, 165.1, cm, 06/02/22 13:23:00 EDT, Height, 85.3, kg, 06/02/22 13:23:00 EDT, Dosing Weight Start: 06-02-2022 See Instructions , One touch ultra blue test strips #60 pt to test twice daily., # 1 EA, 11 Refill(s), Pharmacy: [facility], Controlled diabetes mellitus with hyperglycemia Type 2 diabetes mellitus with hemoglobin A1c goal of less than 7.5%, 160, cm, 03/02/23 8:17:00 EST, Height, 87.7, kg, 03/02/23 8:17:00 EST, Dosing Weight Start: 03-13-2023 See Instructions , One touch Delica Lancet 33g, 1 box of 100, testing 2 times daily, # 1 EA, 11 Refill(s), [facility]acy: [facility] #[id number], Controlled diabetes mellitus with hyperglycemia Type 2 diabetes mellitus with hemoglobin A1c goal of less than 7.5%, 165.1, cm, 06/02/22 13:23:00 EDT, Height, 85.3, kg, 06/02/22 13:23:00 EDT, Dosing Weight Start: 06-02-2022 See Instructions , One touch ultra blue test strips #60 pt to test twice daily., # 1 EA, 11 Refill(s), Pharmacy: [facility], Controlled diabetes mellitus with hyperglycemia Type 2 diabetes mellitus with hemoglobin A1c goal of less than 7.5%, 160, cm, 03/02/23 8:17:00 EST, Height, 87.7, kg, 03/02/23 8:17:00 EST, Dosing Weight Start: 03-13-2023 See Instructions , One touch Delica Lancet 33g, 1 box of 100, testing 2 times daily, # 1 EA, 11 Refill(s), Pharmacy: [facility] #[id number], Controlled diabetes mellitus with hyperglycemia Type 2 diabetes mellitus with hemoglobin A1c goal of less than 7.5%, 165.1, cm, 06/02/22 13:23:00 EDT, Height, 85.3, kg, 06/02/22 13:23:00 EDT, Dosing Weight Start: 06-02-2022 See Instructions , One touch ultra blue test strips #60 pt to test twice daily., # 1 EA, 11 Refill(s), Pharmacy: [facility], Controlled diabetes mellitus with hyperglycemia Type 2 diabetes mellitus with hemoglobin A1c goal of less than 7.5%, 160, cm, 03/02/23 8:17:00 EST, Height, 87.7, kg, 03/02/23 8:17:00 EST, Dosing Weight Start: 03-13-2023 See Instructions , One touch Delica Lancet 33g, 1 box of 100, testing 2 times daily, # 1 EA, 11 Refill(s), Pharmacy: [facility] #[id number], Controlled diabetes mellitus with hyperglycemia Type 2 diabetes mellitus with hemoglobin A1c goal of less than 7.5%, 165.1, cm, 06/02/22 13:23:00 EDT, Height, 85.3, kg, 06/02/22 13:23:00 EDT, Dosing Weight Start: 06-02-2022 See Instructions , One touch ultra blue test strips #60 pt to test twice daily., # 1 EA, 11 Refill(s), Pharmacy: [facility], Controlled diabetes mellitus with hyperglycemia Type 2 diabetes mellitus with hemoglobin A1c goal of less than 7.5%, 160, cm, 03/02/23 8:17:00 EST, Height, 87.7, kg, 03/02/23 8:17:00 EST, Dosing Weight Start: 03-13-2023 See Instructions , One touch Delica Lancet 33g, 1 box of 100, testing 2 times daily, # 1 EA, 11 Refill(s), Pharmacy: [facility] #[id number], Controlled diabetes mellitus with hyperglycemia Type 2 diabetes mellitus with hemoglobin A1c goal of less than 7.5%, 165.1, cm, 06/02/22 13:23:00 EDT, Height, 85.3, kg, 06/02/22 13:23:00 EDT, Dosing Weight Start: 06-02-2022 See Instructions , One touch ultra blue test strips #60 pt to test twice daily., # 1 EA, 11 Refill(s), Pharmacy: [facility], Controlled diabetes mellitus with hyperglycemia Type 2 diabetes mellitus with hemoglobin A1c goal of less than 7.5%, 160, cm, 03/02/23 8:17:00 EST, Height, 87.7, kg, 03/02/23 8:17:00 EST, Dosing Weight Start: 03-13-2023 See Instructions , One touch Delica Lancet 33g, 1 box of 100, testing 2 times daily, # 1 EA, 11 Refill(s), Pharmacy: [facility] #[id number], Controlled diabetes mellitus with hyperglycemia Type 2 diabetes mellitus with hemoglobin A1c goal of less than 7.5%, 165.1, cm, 06/02/22 13:23:00 EDT, Height, 85.3, kg, 06/02/22 13:23:00 EDT, Dosing Weight Start: 06-02-2022 See Instructions , One touch ultra blue test strips #60 pt to test twice daily., # 1 EA, 11 Refill(s), Pharmacy: [facility], Controlled diabetes mellitus with hyperglycemia Type 2 diabetes mellitus with hemoglobin A1c goal of less than 7.5%, 160, cm, 03/02/23 8:17:00 EST, Height, 87.7, kg, 03/02/23 8:17:00 EST, Dosing Weight Start: 03-13-2023 See Instructions , One touch Delica Lancet 33g, 1 box of 100, testing 2 times daily, # 1 EA, 11 Refill(s), Pharmacy: [facility] #[id number], Controlled diabetes mellitus with hyperglycemia Type 2 diabetes mellitus with hemoglobin A1c goal of less than 7.5%, 165.1, cm, 06/02/22 13:23:00 EDT, Height, 85.3, kg, 06/02/22 13:23:00 EDT, Dosing Weight Start: 06-02-2022 See Instructions , One touch ultra blue test strips #60 pt to test twice daily., # 1 EA, 11 Refill(s), Pharmacy: [facility], Controlled diabetes mellitus with hyperglycemia Type 2 diabetes mellitus with hemoglobin A1c goal of less than 7.5%, 160, cm, 03/02/23 8:17:00 EST, Height, 87.7, kg, 03/02/23 8:17:00 EST, Dosing Weight Start: 03-13-2023 See Instructions , One touch Delica Lancet 33g, 1 box of 100, testing 2 times daily, # 1 EA, 11 Refill(s), Pharmacy: [facility] #[id number], Controlled diabetes mellitus with hyperglycemia Type 2 diabetes mellitus with hemoglobin A1c goal of less than 7.5%, 165.1, cm, 06/02/22 13:23:00 EDT, Height, 85.3, kg, 06/02/22 13:23:00 EDT, Dosing Weight Start: 06-02-2022 See Instructions , One touch ultra blue test strips #60 pt to test twice daily., # 1 EA, 11 Refill(s), Pharmacy: [facility], Controlled diabetes mellitus with hyperglycemia Type 2 diabetes mellitus with hemoglobin A1c goal of less than 7.5%, 160, cm, 03/02/23 8:17:00 EST, Height, 87.7, kg, 03/02/23 8:17:00 EST, Dosing Weight Start: 03-13-2023 See Instructions , One touch Delica Lancet 33g, 1 box of 100, testing 2 times daily, # 1 EA, 11 Refill(s), Pharmacy: [facility] #[id number], Controlled diabetes mellitus with hyperglycemia Type 2 diabetes mellitus with hemoglobin A1c goal of less than 7.5%, 165.1, cm, 06/02/22 13:23:00 EDT, Height, 85.3, kg, 06/02/22 13:23:00 EDT, Dosing Weight Start: 06-02-2022 See Instructions , One touch ultra blue test strips #60 pt to test twice daily., # 1 EA, 11 Refill(s), Pharmacy: [facility], Controlled diabetes mellitus with hyperglycemia Type 2 diabetes mellitus with hemoglobin A1c goal of less than 7.5%, 160, cm, 03/02/23 8:17:00 EST, Height, 87.7, kg, 03/02/23 8:17:00 EST, Dosing Weight Start: 03-13-2023 See Instructions , One touch Delica Lancet 33g, 1 box of 100, testing 2 times daily, # 1 EA, 11 Refill(s), Pharmacy: [facility], Controlled diabetes mellitus with hyperglycemia Type 2 diabetes mellitus with hemoglobin A1c goal of less than 7.5%, 165, cm, 06/14/23 13:33:00 EDT, Height, 181, kg, 06/14/23 13:33:00 EDT, Dosing Weight Start: 06-26-2023 See Instructions , One touch ultra blue test strips #60 pt to test twice daily., # 1 EA, 11 Refill(s), Pharmacy: [facility], Controlled diabetes mellitus with hyperglycemia Type 2 diabetes mellitus with hemoglobin A1c goal of less than 7.5%, 160, cm, 03/02/23 8:17:00 EST, Height, 87.7, kg, 03/02/23 8:17:00 EST, Dosing Weight Start: 03-13-2023 See Instructions , One touch Delica Lancet 33g, 1 box of 100, testing 2 times daily, # 1 EA, 11 Refill(s), Pharmacy: [facility], Controlled diabetes mellitus with hyperglycemia Type 2 diabetes mellitus with hemoglobin A1c goal of less than 7.5%, 165, cm, 06/14/23 13:33:00 EDT, Height, 181, kg, 06/14/23 13:33:00 EDT, Dosing Weight Start: 06-26-2023 Goals Date Patient Goal Desired Activity /State Functional Status Date Assessment Result Facility 06-25-2024 Functional status Chair [facility] Work Phone: 03-02-2024 Functional status Ambulates;Chair [facility] Work Phone: 06-11-2023 Functional Status [facility] Functional Status Mod I [facility] 06-11-2023 Functional Status Non-Slip footw ear, Room check performed [facility] 06-11-2023 Functional Status [facility] 06-11-2023 Functional Status [facility] 06-11-2023 Functional Status [facility] 06-10-2023 Functional Status Up with assistance [facility] 06-10-2023 Functional Status [facility] 06-10-2023 Functional Status [facility] 06-10-2023 Functional Status 7am-7pm [facility] 06-10-2023 Functional Status [facility] 06-10-2023 Functional Status [facility] 06-09-2023 Functional Status padded oxygen tubing [facility] 06-09-2023 Functional Status [facility] 06-09-2023 Functional Status Dinner Percent 100 [facility] 06-09-2023 Functional Status [facility] 06-09-2023 Functional Status [facility] 06-09-2023 Functional Status Feeding Assistance Inde pendent [facility] 06-09-2023 Functional Status [facility] 06-08-2023 Functional Status [facility] 06-08-2023 Functional Status Maximum assistance [facility] 06-08-2023 Functional Status Standard Safet y ID band on, Allergy Band on, Call device within reach, Bed in low position, Wheels locked [facility] 06-08-2023 Functional Status Identified as high risk, Room located near nursing station [facility] 05-25-2023 Functional Status Independent [facility] 05-25-2023 Functional Status Standard Safet y ID band on, Allergy Band on, Call device within reach, Bed in low position, Wheels locked, Safety level maintained [facility] 05-08-2023 Functional Status Supervised [facility] 05-08-2023 Functional Status Lunch Percent 100 [facility] 05-08-2023 Functional Status Identified as high risk, Fall ID band on, Door open, Non-Slip footwear [facility] 05-08-2023 Functional Status [facility] 05-07-2023 Functional Status [facility] 05-07-2023 Functional Status Demonstrates C orrect Call Light Use Yes [facility] 05-07-2023 Functional Status [facility] 05-07-2023 Functional Status Mobile home [facility] 05-07-2023 Functional Status [facility] 04-26-2023 Functional status Activity Ability Indepe [facility] Work Phone: 04-26-2023 Functional status Ambulates;Chair [facility] Work Phone: 03-09-2023 Functional status Patient Activity Ambula [facility] Work Phone: 03-09-2023 Functional status Activity Abili ty With Assist of 1 [facility] Work Phone: 03-08-2023 Functional status Standard Walker [facility] Work Phone: 02-15-2023 Functional status Bedpan [facility] Work Phone: 11-18-2022 Functional status Activity Abili ty Standby Assist [facility] Work Phone: 11-18-2022 Functional status Patient Activity Ambula [facility] Work Phone: 05-25-2022 Functional status Activity Ability Indepe [facility] Work Phone: 04-13-2022 Functional status Chair [facility] Work Phone: 03-16-2022 Functional status Ambulates;Up ad renita;Shawna ir [facility] Work Phone: 12-16-2021 Functional status Ambulates [facility] Work Phone: Mental Status Date Assessment Result Facility 06-25-2024 Cognitive function Voice/Name [facility] Work Phone: 03-02-2024 Cognitive function Voice/Name [facility] Work Phone: 06-11-2023 Mental Status Oriented x 4, Follows simple commands [facility] 06-10-2023 Mental Status [facility] 06-10-2023 [facility] 06-09-2023 [facility] 06-08-2023 Mental Status Orientation Oriented x 4 [facility] 06-08-2023 Mental Status [facility] 05-25-2023 Mental Status Orientation Oriented x 4 [facility] 05-25-2023 Mental Status [facility] 05-08-2023 Mental Status Oriented x 4 [facility] 05-07-2023 Mental Status [facility] 05-07-2023 Mental Status [facility] 04-26-2023 Cognitive function Voice/Name [facility] Work Phone: 04-02-2023 Cognitive function Voice/Name [facility] Work Phone: 03-09-2023 Cognitive function Voice/Name [facility] Work Phone: 02-14-2023 Cognitive function Voice/Name;To uch/Shaking;Light Pain;Deep Pain [facility] Work Phone: 11-18-2022 Cognitive function Voice/Name [facility] Work Phone: 05-26-2022 Cognitive function Voice/Name [facility] Work Phone: 04-13-2022 Cognitive function Voice/Name [facility] Work Phone: 03-14-2022 Cognitive function Voice/Name [facility] Work Phone: 12-16-2021 Cognitive function Voice/Name [facility] Work Phone: 12-08-2021 Cognitive function Level Of Cons ciousness Awake;Alert;Appropriate;Follow s Commands [facility] Work Phone: Clinical Notes 04-23-2021 to 06-25-2024 Note Date & Type Note Facility 06-25-2024 Consult note [facility] 06-25-2024 Consult note Note Date/Time June 25, 2024 5:29pm [facility] Medical Records Department [address] [place] [address] Counseling Note - Pharmacy 06/25/24 1448 MR#: [id number] Acct: [id number] Name: BEULAH BRIGHT Rep #:[id number] : 1940 84 From: Rena Song PCP: Dr. Yuridia Hernandez MD Status:ADM I N Y Location: [place] [address] Pharmacy [facility] Service has performed discharge medication reconciliation and counseling for this patient. 1. Prednisone 40mg PO breakfast x 4 days The patient's discharge medication list was reviewed for discrepancies and discrepancies were resolved. The patient was counseled on the following discharge medications and changes in medications for homegoing were reviewed. The Reason for Use, instructions for use, and potential side effects were reviewed for all new medications. The patient's questions regarding all of their medications were answered. The patient was able to verbally demonstrate an understanding of their dischargemedications. Patient counseled by bilingual spanish inbound salesLalit. Medications at Discharge Home Medications atorvastatin 80 mg tablet 80 mg PO DAILY CHOLESTEROL 05/02/21 cholecalciferol (vitamin D3) 25 mcg (1,000 unit) capsule 25 mcg PO DAILY [id number]/21/22 ipratropium 0.5 mg-albuterol 3 mg (2.5 mg base)/3 mL nebulization soln 3 ml inhalation 4X/DAY PRN sob 05/02/21 liothyronine 25 mcg tablet 25 mcg PO DAILY THYROID 05/02/21 tiotropium bromide 18 mcg capsule with inhalation device (Spiriva with HandiHaler) 18 mcg inhalation DAILY SOB 05/02/21 vitamins A,C,H-qfni-tedftw 4,296 mcg-226 mg-90 mg capsule (PreserVision AREDS) 1cap PO BID vitamin 12/13/21 glimepiride 2 mg tablet 2 mg PO DAILY DM #3 tabs 03/09/23 empagliflozin 10 mg tablet (Jardiance) 10 mg PO DAILY heart failure 30 days #30 tabs 04/26/23 metoprolol succinate 25 mg tablet,extended release 24 hr 25 mg PO DAILY heart 06/27/23 ferrous sulfate 325 mg (65 mg iron) tablet (FeroSul) 325 mg PO BID supplement 11/14/23 furosemide 40 mg tablet 40 mg PO DAILY water pill 02/02/24 lisinopril 10 mg tablet 10 mg PO DAILY 02/28/24 pantoprazole 40 mg tablet,delayed release 40 mg PO BID #60 tabs 03/02/24 sucralfate 1 gram tablet 1 g PO Q6H 90 days #360 tabs 05/01/24 prednisone 20 mg tablet 40 mg (2 x 20 mg) PO BREAKFAST 4 days #8 tabs 06/25/24 06/25/24 1448 <Electronically signed by Rena Song> Date _ Rena Song Cosigner Signature (if applicable): Date CC: ~ Signed [facility] Work Phone: [phone] 665-107004-16-2025 Discharge summary [facility] Medical Records Department [facility] [place] [address] Discharge Summary 06/25/24 1349 MR#: [id number] Acct: [id number] Name: BEULAH BRIGHT Rep #:[id number] : 1940 84 From: Sarai Alcantara MD PCP: Dr. Yuridia Hernandez MD Status:ADM I N Location: [place] [address] Providers Date of Admission: 06/23/24 Date of Discharge: 06/25/24 Primary Care Physician: Dr. Yuridia Hernandez MD Reason For Visit: ACUTE ON CHRONIC HYPOXIC RESP FAILURE Diagnosis Discharge Diagnosis (1) COPD exacerbation: Status: Chronic Code(s): J44.1 - Chronic obstructive pulmonary disease with (acute) exacerbation Plan #Hypoxia in the setting of chronic respiratory failure due to COPD exacerbation * Feels much better. Currently down to 1 L of oxygen. On IV Solu-Medrol. * Breathing treatments with bronchodilators. Titrate oxygen to maintain saturation above 90%. * Switch to p.o. prednisone now since patient's breathing has improved. #Acute on chronic heart failure preserved ejection fraction: BNP was elevated onadmission. However he has underlying CKD which could have caused this also. Onlisinopril and metoprolol as well as statin. Continue diuresis. #Nonobstructing CAD: * Had cardiac cath in March 2022 which showed mild to moderate disease. Recommendation was for medical management. Not on antiplatelets due to history of GI bleed. On metoprolol and statin as well as lisinopril #CKD stage IV: Creatinine is 2.57 today which is around his baseline. Will monitor. #Chronic thrombocytopenia: Will continue monitoring. #GERD with history of GI bleed. 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 * He also had EGD in March 2023 with capsule endoscopy which showed short segments of inflammation with no active bleeding. He did have repeat EGD done in 12/31/2019 for which showed oozing gastriculcer which was biopsied. * Most recent EGD was seen February 2020 for which showed chronic gastritis with hemorrhage and also duodenal ulcers were treated with a heater probe. * On IV pantoprazole and sulcal fate. #Type 2 diabetes mellitus: Oral meds on hold. Insulin sliding scale. ACT checks ACHS. #Hypertension: On torsemide and metoprolol as well as lisinopril. IV hydralazine as needed #Chronic anemia: hemoGlobin was 7.9 today. Baseline hemoglobin is around 7-8. Will monitor closely. #Hyperlipidemia: On statin #Hypothyroidism: On liothyronine #DVT prophylaxis: SCDs Medications at Discharge Home Medications atorvastatin 80 mg tablet 80 mg PO DAILY CHOLESTEROL 05/02/21 cholecalciferol (vitamin D3) 25 mcg (1,000 unit) capsule 25 mcg PO DAILY [id number]/21/22 ipratropium 0.5 mg-albuterol 3 mg (2.5 mg base)/3 mL nebulization soln 3 ml inhalation 4X/DAY PRN sob 05/02/21 liothyronine 25 mcg tablet 25 mcg PO DAILY THYROID 05/02/21 tiotropium bromide 18 mcg capsule with inhalation device (Spiriva with HandiHaler) 18 mcg inhalation DAILY SOB 05/02/21 vitamins A,C,D-eoai-fuciah 4,296 mcg-226 mg-90 mg capsule (PreserVision AREDS) 1cap PO BID vitamin 12/13/21 glimepiride 2 mg tablet 2 mg PO DAILY DM #3 tabs 03/09/23 empagliflozin 10 mg tablet (Jardiance) 10 mg PO DAILY heart failure 30 days #30 tabs 04/26/23 metoprolol succinate 25 mg tablet,extended release 24 hr 25 mg PO DAILY heart 06/27/23 ferrous sulfate 325 mg (65 mg iron) tablet (FeroSul) 325 mg PO BID supplement 11/14/23 furosemide 40 mg tablet 40 mg PO DAILY water pill 02/02/24 lisinopril 10 mg tablet 10 mg PO DAILY 02/28/24 pantoprazole 40 mg tablet,delayed release 40 mg PO BID #60 tabs 03/02/24 sucralfate 1 gram tablet 1 g PO Q6H 90 days #360 tabs 05/01/24 prednisone 20 mg tablet 40 mg (2 x 20 mg) PO BREAKFAST 4 days #8 tabs 06/25/24 Hospital Course Operations None Procedures 2-D Echocardiogram Summary of Care Provided Minutes Spent on Discharge: 42 Hospital Course: Patient is an 84-year-old female with an extensive past medical history as outlined including chronic respiratory failure on 2.5 L of oxygen was admitted through the ED on 06/23/2024 with a complaint of shortness of breath which started the day before and was worsening. He had associated wheezing and fatigue. Shortness of breath worsened with exertion. He had tenderness oxygen up to 4 L of oxygen to help with the shortness of breath. However his symptoms were not improving. He had subjective chills but denied any productive cough. He came into the ED where he was saturating at 97% on 2 L of oxygen. Initial troponin was 83 and did not trend upward significantly. proBNP was 2233 chest x-ray faiza wed no acute cardiopulmonary pathology. EKG showed sinus rhythm with first- degree AV block and no evidence of ischemia. He was admitted to the manage for hypoxia due to acute exacerbation of COPD andheart failure. He was diuresed with IV Lasix and also placed on IV Solu-Medrol. His shortness of breath resolved and he felt much better. He remained stable and was discharged home on 06/25/2024. HE was discharged on PO prednisone 40mg daily x 5 days and isto follow up with his PCP within 1-2 weeks. Patient seen and examined. He had no active complaints and was eager to be discharged home. Labs and vitals reviewed. Home meds reviewed and reconciled. Physical Exam Const alert, oriented x3, no apparent distress and well nourished General Appearance: cooperative, comfortable, well kempt and well developed Orientation / Consciousness: awake Exam Limitations: no limitations HEENT normocephalic, head/scalp atraumatic, hearing grossly normal bilaterally, moist oral mucous membranes and oropharynx normal Mouth: oral and palatal mucosa normal Eyes PERRL, EOMs intact bilaterally and conjunctivae normal Neck no lymphadenopathy, supple and no JVD Lymph Lymphatic: no lymphadenopathy noted Resp Resp Narrative: mildly diminished breath sounds bibasally, no wheezes or crackles. On room air. Cardio regular rate, regular rhythm, S1 normal heart sound, S2 normal heart sound and no murmurs GI normal to inspection, nondistended, normoactive bowel sounds, soft to palpation,non-tender and non-distended Extremity normal to inspection, full ROM, normal capillary refill, no clubbing, cyanosis or edema and no calftenderness General Extremity: no tenderness to palpation of joints or extremities Skin General Skin Exam: no breakdown Neuro oriented x3, CN's II-XII intact bilaterally, moves all extremities, no focal motor deficits and no sensory deficits noted Sensorium / Orientation: awake and alert Motor Exam: strength 5/5 throughout and general weakness Psych thought process normal, cooperative and affect normal Appearance: appropriate Weight / BMI Weight Weight: 181 lb 3.52 oz Body Mass Index (BMI) 30.1 ABG / Lab / Microbiology Data 06/25/24 07:42 06/25/24 07:42 Laboratory: Laboratory Results - last 24 hr 06/24/24 16:48: POC Glucose 184 H 06/24/24 20:39: POC Glucose 128 H 06/25/24 06:50: POC Glucose 118 H 06/25/24 07:42: WBC 8.6, RBC 2.56 L, Hgb 8.0 L, Hct 23.4 L, MCV 91.4, MCH 31.3, MCHC 34.2, RDW Std Deviation 44.8 H, RDW Coeff of John 13.7, Plt Count 94 L, MPV 11.0, Immature Gran % (Auto) 0.300, Neut % (Auto) 80.9 H, Lymph % (Auto) 12.3 L,[place] % (Auto) 6.1, Eos % (Auto) 0.3, Baso % (Auto) 0.1, Absolute Neuts (auto) 7.0, Absolute Lymphs (auto) 1.06, Nucleated RBC % 0, Sodium 138, Potassium 4.4, Chloride 99, Carbon Dioxide 25.1, Anion Gap 14, BUN 110 H*, Creatinine 2.83 H, Estim Creat Clear Calc18.84 L, Est GFR (MDRD) Non-Af 21 L, BUN/Creatinine Ratio 38.9 H, Glucose 126 H, Calcium 9.3 06/25/24 10:54: POC Glucose 161 H 06/25/24 15:40: POC Glucose 237 H Microbiology: Microbiology 06/23/24 21:15 Mucosa - Nasopharyngeal Respiratory Panel (PCR) - Final 06/23/24 20:54 Nasal Secretion MRSA (PCR) - Final 06/23/24 14:55 Mucosa - Nose SARS-CoV-2, Influenza & RSV (PCR) - Final D/C Instructions Discharge Diet: Low fat / Low cholesterol Discharge Activity: Return to Normal Activity Weight Bearing Status: Weight bearing as tolerated Call your doctor if you observe: Fever of 101 or Higher, Shortness of breath, Dizziness, Swelling in the ankles and Chest pain DC O2, CPAP, BIPAP Needs Home O2 Discharge instructions: Yes Type of respiratory needs?: Oxygen (2) Oxygen frequency: Continuous Continuous oxygen liters per minute: 2 DC home with Oxygen: Yes Home O2 MD Review: I have reviewed the oxygen testing, and the patient qualifies for home oxygen equipment and portability. The patient is mobile in the home and the community. Meaningful Use Info Meaningful Use Meaningful Use Diagnoses (Choose all that apply): CHF CHF RICH/ARB ordered at discharge?: Yes Documented LVEF (%): 55 Ischemic Stroke Statin Dosing Therapy Reference: STATIN DOSE THERAPY REFERENCE: * Patients > 75 years receive moderate or high dose statin therapy. * Patients 75 years or YOUNGER should receive HIGH intensity statin dose unless contraindicated. You will be required to document reason for non-treatment if statin daily dose does not meet guidelines. HIGH DOSE STATIN THERAPY DAILY Atorvastatin > than or = to 40 mg Rosuvastatin > than or = to 20 mg Amlodipine + Atorvastatin > than or = to 2.5/40 mg Ezetimibe + Simvastatin 10/80 mg Simvastatin 80mg Discharge Plan Admission Admit Date/Time: 06/23/24 17:35 Primary Reason for Your Visit: acute exacerbation of heart failure, COPD exacerbation Attending Provider: Sarai Alcantara Primary Care Provider: Yuridia Hernandez Consulting Providers: Tracy Angel Instructions Patient Instructions: Coping with Heart Failure, COPD Controlled Breathing Dc Discharge Orders/Prescriptions Prescriptions: New prednisone 20 mg Tablet 40 mg PO BREAKFAST 4 Days Qty: 8 0RF Continued atorvastatin 80 mg tablet 80 mg PO DAILY ipratropium-albuterol 0.5 mg-3 mg(2.5 mg base)/3 mL solution for nebulization 3 ml inhalation 4X/DAY PRN (Reason: sob) Patient Comments: inhale contents of 1 vial ( 3 milliliters ) in nebulizer by mouth... (REFER TO PRESCRIPTION NOTES). liothyronine 25 mcg tablet 25 mcg PO DAILY Patient Comments: TAKE 1 TABLET BY MOUTH ONCE DAILY FOR 90 DAYS tiotropium bromide [Spiriva with HandiHaler] 18 mcg capsule, w/inhalation device 18 mcg INHALATION DAILY Patient Comments: INHALE THE CONTENTS OF 1 CAPSULE TWICE EACH TIME VIA HANDIHALER ONCE DAILY cholecalciferol (vitamin D3) 25 mcg (1,000 unit) Capsule 25 mcg PO DAILY PreserVision AREDS [id number] Capsule 1 cap PO BID Jardiance 10 mg Tablet 10 mg PO DAILY 30 Days Qty: 30 0RF glimepiride 2 mg tablet 2 mg PO DAILY Qty: 3 0RF Patient Comments: take 1 tablet by mouth once daily WITH FIRST MEAL OF THE DAY Rx Instructions: Hold if glucose less than 130 mg/dl metoprolol succinate 25 mg tablet extended release 24 hr 25 mg PO DAILY ferrous sulfate [FeroSul] 325 mg (65 mg iron) tablet 325 mg PO BID furosemide 40 mg tablet 40 mg PO DAILY lisinopril 10 mg tablet 10 mg PO DAILY pantoprazole 40 mg tablet,delayed release (DR/EC) 40 mg PO BID Qty: 60 3RF sucralfate 1 gram tablet 1 g PO Q6H 90 Days Qty: 360 3RF Discontinued torsemide 5 mg tablet 5 mg PO DAILY Referrals / Follow Up: Yuridia Hernandez MD [Primary Care Provider] - Within 1 Week Disposition Disposition (needs filled in before D/C Order can be placed): Home, Self Care Charges/Coding Visit Charges Inpatient E&M: 44379 Disch Hosp >30min 06/25/24 1640 Cosigner Signature (if applicable): CC: Dr. Sarai Alcantara MD; Dr. Yuridia Hernandez MD~ Signed [facility]04-16-2025 Discharge summary Author [facility] Note Date/Time June 25, 2024 1:4 9pm [facility] Medical Records Department [address] [place] [id number] Instructions for Home/Discharge Instructions 06/25/24 1348 MR#: [id number] Acct: [id number] Name: BEULAH BRIGHT Rep #:[id number] : 1940 84 From: Sarai Alcantara MD PCP: Dr. Yuridia Hernandez MD Status:ADM I N Discharge Instructions Diet Discharge Diet: Low fat / Low cholesterol DC O2, CPAP, BIPAP needs Home O2 Discharge instructions: No Dressing / Incision Discharge Activity: Return to Normal Activity Weight Bearing Status: Weight bearing as tolerated Dressing / Incision Call your doctor if you observe: Fever of 101 or Higher, Shortness of breath, Dizziness, Swelling in the ankles and Chest pain Follow Up Care Test Results: Test results from this visit will be discussed in further detail at your follow- up appointment, if applicable. Discharge Plan Admission Admit Date/Time: 06/23/24 17:35 Primary Reason for Your Visit: acute exacerbation of heart failure, COPD exacerbation Attending Provider: Sarai Alcantara Primary Care Provider: Yuridia Hernandez Consulting Providers: Tracy Angel Instructions Patient Instructions: Coping with Heart Failure, COPD Controlled Breathing Dc Discharge Orders/Prescriptions Prescriptions: New prednisone 20 mg Tablet 40 mg PO BREAKFAST 4 Days Qty: 8 0RF Continued atorvastatin 80 mg tablet 80 mg PO DAILY ipratropium-albuterol 0.5 mg-3 mg(2.5 mg base)/3 mL solution for nebulization 3 ml inhalation 4X/DAY PRN (Reason: sob) Patient Comments: inhale contents of 1 vial ( 3 milliliters ) in nebulizer by mouth... (REFER TO PRESCRIPTION NOTES). liothyronine 25 mcg tablet 25 mcg PO DAILY Patient Comments: TAKE 1 TABLET BY MOUTH ONCE DAILY FOR 90 DAYS tiotropium bromide [Spiriva with HandiHaler] 18 mcg capsule, w/inhalation device 18 mcg INHALATION DAILY Patient Comments: INHALE THE CONTENTS OF 1 CAPSULE TWICE EACH TIME VIA HANDIHALER ONCE DAILY cholecalciferol (vitamin D3) 25 mcg (1,000 unit) Capsule 25 mcg PO DAILY PreserVision AREDS 14320-226-200 [id number] Capsule 1 cap PO BID Jardiance 10 mg Tablet 10 mg PO DAILY 30 Days Qty: 30 0RF glimepiride 2 mg tablet 2 mg PO DAILY Qty: 3 0RF Patient Comments: take 1 tablet by mouth once daily WITH FIRST MEAL OF THE DAY Rx Instructions: Hold if glucose less than 130 mg/dl metoprolol succinate 25 mg tablet extended release 24 hr 25 mg PO DAILY ferrous sulfate [FeroSul] 325 mg (65 mg iron) tablet 325 mg PO BID furosemide 40 mg tablet 40 mg PO DAILY lisinopril 10 mg tablet 10 mg PO DAILY pantoprazole 40 mg tablet,delayed release (DR/EC) 40 mg PO BID Qty: 60 3RF sucralfate 1 gram tablet 1 g PO Q6H 90 Days Qty: 360 3RF Discontinued torsemide 5 mg tablet 5 mg PO DAILY Referrals / Follow Up: Yuridia Hernandez MD [Primary Care Provider] - Within 1 Week Disposition Disposition (needs filled in before D/C Order can be placed): Home, Self Care 04/9<Electronically signed by Sarai Alcantara MD>Sarai Alcantara MD CC: Dr. Tracy Angel MD; Dr. Yuridia Hernandez MD ~ Signed [facility] Work Phone: [phone] 570-785504-16-2025 Discharge summary Author Sarai Alcantara [facility] Note Date/Time June 25, 2024 4:4 0pm [facility] Medical Records Department [address] [place] [address] Discharge Summary 06/25/24 1349 MR#: [id number] Acct: [id number] Name: BEULAH BRIGHT Rep #:[id number] : 1940 84 From: Sarai Alcantara MD PCP: Dr. Yuridia Hernandez MD Status:ADM I N Location: [place] [address] Providers Date of Admission: 06/23/24 Date of Discharge: 06/25/24 Primary Care Physician: Dr. Yuridia Hernandez MD Reason For Visit: ACUTE ON CHRONIC HYPOXIC RESP FAILURE Diagnosis Discharge Diagnosis (1) COPD exacerbation: Status: Chronic Code(s): J44.1 - Chronic obstructive pulmonary disease with (acute) exacerbation Plan #Hypoxia in the setting of chronic respiratory failure due to COPD exacerbation * Feels much better. Currently down to 1 L of oxygen. On IV Solu-Medrol. * Breathing treatments with bronchodilators. Titrate oxygen to maintain saturation above 90%. * Switch to p.o. prednisone now since patient's breathing has improved. #Acute on chronic heart failure preserved ejection fraction: BNP was elevated onadmission. However he has underlying CKD which could have caused this also. Onlisinopril and metoprolol as well as statin. Continue diuresis. #Nonobstructing CAD: * Had cardiac cath in March 2022 which showed mild to moderate disease. Recommendation was for medical management. Not on antiplatelets due to history of GI bleed. On metoprolol and statin as well as lisinopril #CKD stage IV: Creatinine is 2.57 today which is around his baseline. Will monitor. #Chronic thrombocytopenia: Will continue monitoring. #GERD with history of GI bleed. 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 * He also had EGD in March 2023 with capsule endoscopy which showed short segments of inflammation with no active bleeding. He did have repeat EGD done in 12/31/2019 for which showed oozing gastric ulcer which was biopsied. * Most recent EGD was seen February 2020 for which showed chronic gastritis with hemorrhage and also duodenal ulcers were treated with a heater probe. * On IV pantoprazole and sulcal fate. #Type 2 diabetes mellitus: Oral meds on hold. Insulin sliding scale. ACT checks ACHS. #Hypertension: On torsemide and metoprolol as well as lisinopril. IV hydralazine as needed #Chronic anemia: hemoGlobin was 7.9 today. Baseline hemoglobin is around 7-8. Will monitor closely. #Hyperlipidemia: On statin #Hypothyroidism: On liothyronine #DVT prophylaxis: SCDs Medications at Discharge Home Medications atorvastatin 80 mg tablet 80 mg PO DAILY CHOLESTEROL 05/02/21 cholecalciferol (vitamin D3) 25 mcg (1,000 unit) capsule 25 mcg PO DAILY [id number]/22 ipratropium 0.5 mg-albuterol 3 mg (2.5 mg base)/3 mL nebulization soln 3 ml inhalation 4X/DAY PRN sob 05/02/21 liothyronine 25 mcg tablet 25 mcg PO DAILY THYROID 05/02/21 tiotropium bromide 18 mcg capsule with inhalation device (Spiriva with HandiHaler) 18 mcg inhalation DAILY SOB 05/02/21 vitamins A,C,C-zkhp-jxgood 4,296 mcg-226 mg-90 mg capsule (PreserVision AREDS) 1cap PO BID vitamin 12/13/21 glimepiride 2 mg tablet 2 mg PO DAILY DM #3 tabs 03/09/23 empagliflozin 10 mg tablet (Jardiance) 10 mg PO DAILY heart failure 30 days #30 tabs 04/26/23 metoprolol succinate 25 mg tablet,extended release 24 hr 25 mg PO DAILY heart 06/27/23 ferrous sulfate 325 mg (65 mg iron) tablet (FeroSul) 325 mg PO BID supplement 11/14/23 furosemide 40 mg tablet 40 mg PO DAILY water pill 02/02/24 lisinopril 10 mg tablet 10 mg PO DAILY 02/28/24 pantoprazole 40 mg tablet,delayed release 40 mg PO BID #60 tabs 03/02/24 sucralfate 1 gram tablet 1 g PO Q6H 90 days #360 tabs 05/01/24 prednisone 20 mg tablet 40 mg (2 x 20 mg) PO BREAKFAST 4 days #8 tabs 06/25/24 Hospital Course Operations None Procedures 2-D Echocardiogram Summary of Care Provided Minutes Spent on Discharge: 42 Hospital Course: Patient is an 84-year-old female with an extensive past medical history as outlined including chronic respiratory failure on 2.5 L of oxygen was admitted through the ED on 06/23/2024 with a complaint of shortness of breath which started the day before and was worsening. He had associated wheezing and fatigue. Shortness of breath worsened with exertion. He had tenderness oxygen up to 4 L of oxygen to help with the shortness of breath. However his symptoms were not improving. He had subjective chills but denied any productive cough. He came into the ED where he was saturating at 97% on 2 L of oxygen. Initial troponin was 83 and did not trend upward significantly. proBNP was 2233 chest x-ray showed no acute cardiopulmonary pathology. EKG showed sinus rhythm with first-degree AV block and no evidence of ischemia. He was admitted to the manage for hypoxia due to acute exacerbation of COPD and heart failure. He was diuresed with IV Lasix and also placed on IV Solu-Medrol. His shortness of breath resolved and he felt much better. He remained stable and was discharged home on 06/25/2024. HE was discharged on PO prednisone 40mg daily x 5 days and isto follow up with his PCP within 1-2 weeks. Patient seen and examined. He had no active complaints and was eager to be discharged home. Labs and vitals reviewed. Home meds reviewed and reconciled. Physical Exam Const alert, oriented x3, no apparent distress and well nourished General Appearance: cooperative, comfortable, well kempt and well developed Orientation / Consciousness: awake Exam Limitations: no limitations HEENT normocephalic, head/scalp atraumatic, hearing grossly normal bilaterally, moist oral mucous membranes and oropharynx normal Mouth: oral and palatal mucosa normal Eyes PERRL, EOMs intact bilaterally and conjunctivae normal Neck no lymphadenopathy, supple and no JVD Lymph Lymphatic: no lymphadenopathy noted Resp Resp Narrative: mildly diminished breath sounds bibasally, no wheezes or crackles. On room air. Cardio regular rate, regular rhythm, S1 normal heart sound, S2 normal heart sound and no murmurs GI normal to inspection, nondistended, normoactive bowel sounds, soft to palpation,non-tender and non-distended Extremity normal to inspection, full ROM, normal capillary refill, no clubbing, cyanosis or edema and no calf tenderness General Extremity: no tenderness to palpation of joints or extremities Skin General Skin Exam: no breakdown Neuro oriented x3, CN's II-XII intact bilaterally, moves all extremities, no focal motor deficits and no sensory deficits noted Sensorium / Orientation: awake and alert Motor Exam: strength 5/5 throughout and general weakness Psych thought process normal, cooperative and affect normal Appearance: appropriate Weight / BMI Weight Weight: 181 lb 3.52 oz Body Mass Index (BMI) 30.1 ABG / Lab / Microbiology Data 06/25/24 07:42 06/25/24 07:42 Laboratory: Laboratory Results - last 24 hr 06/24/24 16:48: POC Glucose 184 H 06/24/24 20:39: POC Glucose 128 H 06/25/24 06:50: POC Glucose 118 H 06/25/24 07:42: WBC 8.6, RBC 2.56 L, Hgb 8.0 L, Hct 23.4 L, MCV 91.4, MCH 31.3, MCHC 34.2, RDW Std Deviation 44.8 H, RDW Coeff of John 13.7, Plt Count 94 L, MPV 11.0, Immature Gran % (Auto) 0.300, Neut % (Auto) 80.9 H, Lymph % (Auto) 12.3 L,[place] % (Auto) 6.1, Eos % (Auto) 0.3, Baso % (Auto) 0.1, Absolute Neuts (auto) 7.0, Absolute Lymphs (auto) 1.06, Nucleated RBC % 0, Sodium 138, Potassium 4.4, Chloride 99, Carbon Dioxide 25.1, Anion Gap 14, BUN 110 H*, Creatinine 2.83 H, Estim Creat Clear Calc 18.84 L, Est GFR (MDRD) Non-Af 21 L, BUN/Creatinine Ratio 38.9 H, Glucose 126 H, Calcium 9.3 06/25/24 10:54: POC Glucose 161 H 06/25/24 15:40: POC Glucose 237 H Microbiology: Microbiology 06/23/24 21:15 Mucosa - Nasopharyngeal Respiratory Panel (PCR) - Final 06/23/24 20:54 Nasal Secretion MRSA (PCR) - Final 06/23/24 14:55 Mucosa - Nose SARS-CoV-2, Influenza & RSV (PCR) - Final D/C Instructions Discharge Diet: Low fat / Low cholesterol Discharge Activity: Return to Normal Activity Weight Bearing Status: Weight bearing as tolerated Call your doctor if you observe: Fever of 101 or Higher, Shortness of breath, Dizziness, Swelling in the ankles and Chest pain DC O2, CPAP, BIPAP Needs Home O2 Discharge instructions: Yes Type of respiratory needs?: Oxygen (2) Oxygen frequency: Continuous Continuous oxygen liters per minute: 2 DC home with Oxygen: Yes Home O2 MD Review: I have reviewed the oxygen testing, and the patient qualifies for home oxygen equipment and portability. The patient is mobile in the home and the community. Meaningful Use Info Meaningful Use Meaningful Use Diagnoses (Choose all that apply): CHF CHF RICH/ARB ordered at discharge?: Yes Documented LVEF (%): 55 Ischemic Stroke Statin Dosing Therapy Reference: STATIN DOSE THERAPY REFERENCE: * Patients > 75 years receive moderate or high dose statin therapy. * Patients 75 years or YOUNGER should receive HIGH intensity statin dose unless contraindicated. You will be required to document reason for non-treatment if statin daily dose does not meet guidelines. HIGH DOSE STATIN THERAPY DAILY Atorvastatin > than or = to 40 mg Rosuvastatin > than or = to 20 mg Amlodipine + Atorvastatin > than or = to 2.5/40 mg Ezetimibe + Simvastatin 10/80 mg Simvastatin 80mg Discharge Plan Admission Admit Date/Time: 06/23/24 17:35 Primary Reason for Your Visit: acute exacerbation of heart failure, COPD exacerbation Attending Provider: Sarai Alcantara Primary Care Provider: Yuridia Hernandez Consulting Providers: Tracy Angel Instructions Patient Instructions: Coping with Heart Failure, COPD Controlled Breathing Dc Discharge Orders/Prescriptions Prescriptions: New prednisone 20 mg Tablet 40 mg PO BREAKFAST 4 Days Qty: 8 0RF Continued atorvastatin 80 mg tablet 80 mg PO DAILY ipratropium-albuterol 0.5 mg-3 mg(2.5 mg base)/3 mL solution for nebulization 3 ml inhalation 4X/DAY PRN (Reason: sob) Patient Comments: inhale contents of 1 vial ( 3 milliliters ) in nebulizer by mouth... (REFER TO PRESCRIPTION NOTES). suzanothyronine 25 mcg tablet 25 mcg PO DAILY Patient Comments: TAKE 1 TABLET BY MOUTH ONCE DAILY FOR 90 DAYS tiotropium bromide [Spiriva with HandiHaler] 18 mcg capsule, w/inhalation device 18 mcg INHALATION DAILY Patient Comments: INHALE THE CONTENTS OF 1 CAPSULE TWICE EACH TIME VIA HANDIHALER ONCE DAILY cholecalciferol (vitamin D3) 25 mcg (1,000 unit) Capsule 25 mcg PO DAILY PreserVision AREDS 14320-226-200 [id number] Capsule 1 cap PO BID Jardiance 10 mg Tablet 10 mg PO DAILY 30 Days Qty: 30 0RF glimepiride 2 mg tablet 2 mg PO DAILY Qty: 3 0RF Patient Comments: take 1 tablet by mouth once daily WITH FIRST MEAL OF THE DAY Rx Instructions: Hold if glucose less than 130 mg/dl metoprolol succinate 25 mg tablet extended release 24 hr 25 mg PO DAILY ferrous sulfate [FeroSul] 325 mg (65 mg iron) tablet 325 mg PO BID furosemide 40 mg tablet 40 mg PO DAILY lisinopril 10 mg tablet 10 mg PO DAILY pantoprazole 40 mg tablet,delayed release (DR/EC) 40 mg PO BID Qty: 60 3RF sucralfate 1 gram tablet 1 g PO Q6H 90 Days Qty: 360 3RF Discontinued torsemide 5 mg tablet 5 mg PO DAILY Referrals / Follow Up: Yuridia Hernandez MD [Primary Care Provider] - Within 1 Week Disposition Disposition (needs filled in before D/C Order can be placed): Home, Self Care Charges/Coding Visit Charges Inpatient E&M: 59144 Disch Hosp >30min 06/25/24 1640 <Electronically signed by Sarai Alcantara MD> Cosigner Signature (if applicable): CC: Dr. Sarai Alcantara MD; Dr. Yuridia Hernandez MD~ Signed [facility] Work Phone: [phone] 634-336104-16-2025 Discharge summary [facility] Medical Records Department [address] [address] Instructions for Home/Discharge Instructions 06/25/24 1348 MR#: [id number] Acct: [id number] Name: BEULAH BRIGHT Javier Rep #:[id number] : 1940 84 From: Sarai Alcantara MD PCP: Dr. Yuridia Hernandez MD Status:ADM I N Discharge Instructions Diet Discharge Diet: Low fat / Low cholesterol DC O2, CPAP, BIPAP needs Home O2 Discharge instructions: No Dressing / Incision Discharge Activity: Return to Normal Activity Weight Bearing Status: Weight bearing as tolerated Dressing / Incision Call your doctor if you observe: Fever of 101 or Higher, Shortness of breath, Dizziness, Swelling in the ankles and Chest pain Follow Up Care Test Results: Test results from this visit will be discussed in further detail at your follow- up appointment, if applicable. Discharge Plan Admission Admit Date/Time: 06/23/24 17:35 Primary Reason for Your Visit: acute exacerbation of heart failure, COPD exacerbation Attending Provider: Sarai Alcantara Primary Care Provider: Yuridia Hernandez Consulting Providers: Tracy Angel Instructions Patient Instructions: Coping with Heart Failure, COPD Controlled Breathing Dc Discharge Orders/Prescriptions Prescriptions: New prednisone 20 mg Tablet 40 mg PO BREAKFAST 4 Days Qty: 8 0RF Continued atorvastatin 80 mg tablet 80 mg PO DAILY ipratropium-albuterol 0.5 mg-3 mg(2.5 mg base)/3 mL solution for nebulization 3 ml inhalation 4X/DAY PRN (Reason: sob) Patient Comments: inhale contents of 1 vial ( 3 milliliters ) in nebulizer by mouth... (REFER TO PRESCRIPTION NOTES). liothyronine 25 mcg tablet 25 mcg PO DAILY Patient Comments: TAKE 1 TABLET BY MOUTH ONCE DAILY FOR 90 DAYS tiotropium bromide [Spiriva with HandiHaler] 18 mcg capsule, w/inhalation device 18 mcg INHALATION DAILY Patient Comments: INHALE THE CONTENTS OF 1 CAPSULE TWICE EACH TIME VIA HANDIHALER ONCE DAILY cholecalciferol (vitamin D3) 25 mcg (1,000 unit) Capsule 25 mcg PO DAILY PreserVision AREDS [id number] Capsule 1 cap PO BID Jardiance 10 mg Tablet 10 mg PO DAILY 30 Days Qty: 30 0RF glimepiride 2 mg tablet 2 mg PO DAILY Qty: 3 0RF Patient Comments: take 1 tablet by mouth once daily WITH FIRST MEAL OF THE DAY Rx Instructions: Hold if glucose less than 130 mg/dl metoprolol succinate 25 mg tablet extended release 24 hr 25 mg PO DAILY ferrous sulfate [FeroSul] 325 mg (65 mg iron) tablet 325 mg PO BID furosemide 40 mg tablet 40 mg PO DAILY lisinopril 10 mg tablet 10 mg PO DAILY pantoprazole 40 mg tablet,delayed release (DR/EC) 40 mg PO BID Qty: 60 3RF sucralfate 1 gram tablet 1 g PO Q6H 90 Days Qty: 360 3RF Discontinued torsemide 5 mg tablet 5 mg PO DAILY Referrals / Follow Up: Yuridia Hernandez MD [Primary Care Provider] - Within 1 Week Disposition Disposition (needs filled in before D/C Order can be placed): Home, Self Care 06/25/24 1349Sarai Alcantara MD CC: Dr. Tracy Angel MD; Dr. Yuridia Hernandez MD ~ Signed [facility]04-16-20[facility] Progress note Author [facility] Note Date/Time June 24, 2024 2:1 7pm [facility] Medical Records Department [address] [place] [address] Progress Note 06/24/24 1359 MR#: [id number] Acct: [id number] Name: BEULAH BRIGHT Rep #:[id number] : 1940 84 From: Sarai Alcantara MD PCP: Dr. Yuridia Hernandez MD Status:ADM I N Location: [place] [address] Subjective Subjective Patient seen and examined. He states he feels much better and his breathing hasimproved. He denies any wheezing, cough or chest pain, nausea vomiting or any other symptoms. He is down to 1 L of oxygen. Objective Data Objective Data Vital Signs: Vital Signs Temp Pulse Resp BP Pulse Ox O2 Del Method O2 Flow Rate 99.1 F 102 H 18 152/66 H 95 Nasal Cannula 1 06/24/24 11:30 06/24/24 12:11 06/24/24 12:11 06/24/24 11:30 06/24/24 12:11 06/24/24 12:11 06/24/24 12:11 Oxygen Flow Rate (L/min) 1 Oxygen Delivery Method Nasal Cannula Weight: 181 lb 3.52 oz Body Mass Index (BMI) 30.1 Intake & Output: Intake and Output for Last 24 Hours 06/22/24 06/23/24 06/24/24 23:59 23:59 23:59 Intake Total 200 / 200 150 / 150 Output Total 1000 / 1000 700 / 700 Balance -800 / -800 -550 / -550 Lab / Micro Data 06/24/24 07:20 06/24/24 07:20 Labs: Laboratory Results - last 24 hr 06/23/24 14:55: WBC 5.9, RBC 2.84 L, Hgb 8.5 L, Hct 27.0 L, MCV 95.1 H, MCH 29.9, MCHC 31.5 L, RDW Std Deviation 45.3 H, RDW Coeff of John 13.2, Plt Count 101 L, MPV 10.5, Immature Gran % (Auto) 0.300, Neut % (Auto) 71.4 H, Lymph % (Auto) 17.7 L, [place] % (Auto) 6.6, Eos % (Auto) 3.5, Baso % (Auto) 0.5, Absolute Neuts (auto) 4.2, Absolute Lymphs (auto) 1.05, Nucleated RBC % 0, Sodium 142, Potassium 4.3, Chloride 103, Carbon Dioxide 25.6, Anion Gap 13, BUN 86 H, Creatinine 2.36 H, Estim Creat Clear Calc 22.61 L, Est GFR (MDRD) Non-Af 26 L, BUN/Creatinine Ratio 36.4 H, Glucose 200 H, Calcium 9.3, Troponin T High Sens 83 H*, NT pro BNP II 2233 H, Procalcitonin 0.12 H 06/23/24 16:51: Magnesium 2.0, Troponin T Hi Sens 2 Hr 83 H* 06/23/24 20:55: Troponin T Hi Sens 4Hr 71 H* 06/23/24 22:02: POC Glucose 205 H 06/24/24 06:16: POC Glucose 172 H 06/24/24 07:20: WBC 3.8 L, RBC 2.61 L, Hgb 7.9 L, Hct 24.1 L, MCV 92.3, MCH 30.3, MCHC 32.8, RDW Std Deviation 43.1, RDW Coeff of John 13.2, Plt Count 90 L, MPV 10.9, Immature Gran % (Auto) 0.300, Neut % (Auto) 85.0 H, Lymph % (Auto) 13.4 L, [place] % (Auto) 1.3, Eos % (Auto) 0.0, Baso % (Auto) 0.0, Absolute Neuts (auto) 3.2, Absolute Lymphs (auto) 0.51 L, Nucleated RBC % 0, Platelet Estimate MOD DEC, Polychromasia 1+, Ovalocytes 1+, Sodium 140, Potassium 4.6, Chloride 101, Carbon Dioxide 24.8, Anion Gap 14, BUN 95 H, Creatinine 2.57 H, Estim CreatClear Calc 20.74 L, Est GFR (MDRD) Non-Af 24 L, BUN/Creatinine Ratio 36.8 H, Glucose 170 H, Calcium 9.5, Total Bilirubin 0.32, AST 18, ALT 31, Alkaline Phosphatase 71, Total Protein 6.9, Albumin 4.0, Globulin 2.9, Albumin/Globulin Ratio 1.4, Triglycerides 106, Cholesterol 149, LDL Cholesterol, Calc 92, VLDL Cholesterol 21, HDL Cholesterol 36 L, Cholesterol/HDL Ratio 4.12 06/24/24 11:28: POC Glucose 276 H Micro: Microbiology 06/23/24 21:15 Mucosa - Nasopharyngeal Respiratory Panel (PCR) - Final 06/23/24 20:54 Nasal Secretion MRSA (PCR) - Final 06/23/24 14:55 Mucosa - Nose SARS-CoV-2, Influenza & RSV (PCR) - Final Radiography Diagnostic Testing: Radiology Impression Chest X-Ray 06/23/24 15:05 IMPRESSION: No acute abnormality is seen. Reading Location: [place] [address] Physical Exam Const alert, oriented x3, no apparent distress and well nourished General Appearance: cooperative and well developed HEENT normocephalic, head/scalp atraumatic, moist oral mucous membranes and oropharynxnormal Eyes PERRL and EOMs intact bilaterally Neck no lymphadenopathy, supple and no JVD Lymph Lymphatic: no lymphadenopathy noted Resp Resp Narrative: mildly diminished breath sounds bibasally, no wheezes or crackles. On room air. Cardio regular rate, regular rhythm, S1 normal heart sound, S2 normal heart sound and no murmurs GI normal to inspection, nondistended, normoactive bowel sounds, soft to palpation,non-tender and non-distended Extremity normal capillary refill, no clubbing, cyanosis or edema and no calf tenderness General Extremity: no tenderness to palpation of joints or extremities Skin General Skin Exam: no breakdown Neuro CN's II-XII intact bilaterally, no focal motor deficits and no sensory deficits noted Motor Exam: strength 5/5 throughout and general weakness Psych thought process normal and cooperative Appearance: appropriate Assessment & Plan Assessment/Plan (1) COPD exacerbation: PLAN: Plan #Hypoxia in the setting of chronic respiratory failure due to COPD exacerbation * Feels much better. Currently down to 1 L of oxygen. On IV Solu-Medrol. * Breathing treatments with bronchodilators. Titrate oxygen to maintain saturation above 90%. * Switch to p.o. prednisone now since patient's breathing has improved. #Acute on chronic heart failure preserved ejection fraction: BNP was elevated onadmission. However he has underlying CKD which could have caused this also. Onlisinopril and metoprolol as well as statin. Continue diuresis. #Nonobstructing CAD: * Had cardiac cath in March 2022 which showed mild to moderate disease. Recommendation was for medical management. Not on antiplatelets due to history of GI bleed. On metoprolol and statin as well as lisinopril #CKD stage IV: Creatinine is 2.57 today which is around his baseline. Will monitor. #Chronic thrombocytopenia: Will continue monitoring. #GERD with history of GI bleed. 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 * He also had EGD in March 2023 with capsule endoscopy which showed short segments of inflammation with no active bleeding. He did have repeat EGD done in 12/31/2019 for which showed oozing gastric ulcer which was biopsied. * Most recent EGD was seen February 2020 for which showed chronic gastritis with hemorrhage and also duodenal ulcers were treated with a heater probe. * On IV pantoprazole and sulcal fate. #Type 2 diabetes mellitus: Oral meds on hold. Insulin sliding scale. ACT checks ACHS. #Hypertension: On torsemide and metoprolol as well as lisinopril. IV hydralazine as needed #Chronic anemia: hemoGlobin was 7.9 today. Baseline hemoglobin is around 7-8. Will monitor closely. #Hyperlipidemia: On statin #Hypothyroidism: On liothyronine #DVT prophylaxis: SCDs Charges/Coding Visit Charges Inpatient E&M: 43824 Subs Hosp L2 06/24/24 1417 <Electronically signed by Sarai Alcantara MD> Sarai Alcantara MD Cosigner Signature (if applicable): CC: ~ Signed [facility] Work Phone: [phone] 388-106604-15-2025 Progress note [facility] Medical Records Department [address] [place] [address] Progress Note 06/24/24 1359 MR#: [id number] Acct: [id number] Name: BEULAH BRIGHT Rep #:[id number] : 1940 84 From: Sarai Alcantara MD PCP: Dr. Yuridia Hernandez MD Status:ADM I N Location: [place] [address] Subjective Subjective Patient seen and examined. He states he feels much better and his breathing hasimproved. He denies any wheezing, cough or chest pain, nausea vomiting or any other symptoms. He is down to 1 L of oxygen. Objective Data Objective Data Vital Signs: Vital Signs Temp Pulse Resp BP Pulse Ox O2 Del Method O2 Flow Rate 99.1 F 102 H 18 152/66 H 95 Nasal Cannula 1 06/24/24 11:30 06/24/24 12:11 06/24/24 12:11 06/24/24 11:30 06/24/24 12:11 06/24/24 12:11 06/24/24 12:11 Oxygen Flow Rate (L/min) 1 Oxygen Delivery Method Nasal Cannula Weight: 181 lb 3.52 oz Body Mass Index (BMI) 30.1 Intake & Output: Intake and Output for Last 24 Hours 06/22/24 06/23/24 06/24/24 23:59 23:59 23:59 Intake Total 200 / 200 150 / 150 Output Total 1000 / 1000 700 / 700 Balance -800 / -800 -550 / -550 Lab / Micro Data 06/24/24 07:20 06/24/24 07:20 Labs: Laboratory Results - last 24 hr 06/23/24 14:55: WBC 5.9, RBC 2.84 L, Hgb 8.5 L, Hct 27.0 L, MCV 95.1 H, MCH 29.9, MCHC 31.5 L, RDW Std Deviation 45.3 H, RDW Coeff of John 13.2, Plt Count 101 L, MPV 10.5, Immature Gran % (Auto) 0.300, Neut % (Auto) 71.4 H, Lymph % (Auto) 17.7 L, [place] % (Auto) 6.6, Eos % (Auto) 3.5, Baso % (Auto) 0.5, Absolute Neuts (auto) 4.2, Absolute Lymphs (auto) 1.05, Nucleated RBC % 0, Sodium 142, Potassium 4.3, Chloride 103, Carbon Dioxide 25.6, Anion Gap 13, BUN 86 H, Creatinine 2.36 H, Estim Creat ClearCalc 22.61 L, Est GFR (MDRD) Non-Af 26 L, BUN/Creatinine Ratio 36.4 H, Glucose 200 H, Calcium 9.3, Troponin T High Sens 83 H*, NT pro BNP II 2233 H, Procalcitonin 0.12 H 06/23/24 16:51: Magnesium 2.0, Troponin T Hi Sens 2 Hr 83 H* 06/23/24 20:55: Troponin T Hi Sens 4Hr 71 H* 06/23/24 22:02: POC Glucose 205 H 06/24/24 06:16: POC Glucose 172 H 06/24/24 07:20: WBC 3.8 L, RBC 2.61 L, Hgb 7.9 L, Hct 24.1 L, MCV 92.3, MCH 30.3, MCHC 32.8, RDW Std Deviation 43.1, RDW Coeff of John 13.2, Plt Count 90 L, MPV 10.9, Immature Gran % (Auto) 0.300, Neut % (Auto) 85.0 H, Lymph % (Auto) 13.4 L, [place] % (Auto) 1.3, Eos % (Auto) 0.0, Baso % (Auto) 0.0, Absolute Neuts (auto) 3.2, Absolute Lymphs (auto) 0.51 L, Nucleated RBC % 0, Platelet Estimate MOD DEC, Polychromasia 1+, Ovalocytes 1+, Sodium 140, Potassium 4.6, Chloride 101, Carbon Dioxide 24.8, Anion Gap 14, BUN 95 H, Creatinine 2.57 H, Estim CreatClear Calc 20.74 L, Est GFR (MDRD) Non-Af 24 L, BUN/Creatinine Ratio 36.8 H, Glucose 170 H, Calcium 9.5, Total Bilirubin 0.32, AST 18, ALT 31, Alkaline Phosphatase 71, Total Protein 6.9, Albumin 4.0, Globulin 2.9, Albumin/Globulin Ratio 1.4, Triglycerides 106, Cholesterol 149, LDL Cholesterol, Calc 92, VLDL Cholesterol 21, HDL Cholesterol 36 L, Cholesterol/HDL Ratio 4.12 06/24/24 11:28: POC Glucose 276 H Micro: Microbiology 06/23/24 21:15 Mucosa - Nasopharyngeal Respiratory Panel (PCR) - Final 06/23/24 20:54 Nasal Secretion MRSA (PCR) - Final 06/23/24 14:55 Mucosa - Nose SARS-CoV-2, Influenza & RSV (PCR) - Final Radiography Diagnostic Testing: Radiology Impression Chest X-Ray 06/23/24 15:05 IMPRESSION: No acute abnormality is seen. Reading Location: [place] [address] Physical Exam Const alert, oriented x3, no apparent distress and well nourished General Appearance: cooperative and well developed HEENT normocephalic, head/scalp atraumatic, moist oral mucous membranes and oropharynxnormal Eyes PERRL and EOMs intact bilaterally Neck no lymphadenopathy, supple and no JVD Lymph Lymphatic: no lymphadenopathy noted Resp Resp Narrative: mildly diminished breath sounds bibasally, no wheezes or crackles. On room air. Cardio regular rate, regular rhythm, S1 normal heart sound, S2 normal heart sound and no murmurs GI normal to inspection, nondistended, normoactive bowel sounds, soft to palpation,non-tender and non-distended Extremity normal capillary refill, no clubbing, cyanosis or edema and no calf tenderness General Extremity: no tenderness to palpation of joints or extremities Skin General Skin Exam: no breakdown Neuro CN's II-XII intact bilaterally, no focal motor deficits and no sensory deficits noted Motor Exam: strength 5/5 throughout and general weakness Psych thought process normal and cooperative Appearance: appropriate Assessment & Plan Assessment/Plan (1) COPD exacerbation: PLAN: Plan #Hypoxia in the setting of chronic respiratory failure due to COPD exacerbation * Feels much better. Currently down to 1 L of oxygen. On IV Solu-Medrol. * Breathing treatments with bronchodilators. Titrate oxygen to maintain saturation above 90%. * Switch to p.o. prednisone now since patient's breathing has improved. #Acute on chronic heart failure preserved ejection fraction: BNP was elevated onadmission. However he has underlying CKD which could have caused this also. Onlisinopril and metoprolol as well as statin. Continue diuresis. #Nonobstructing CAD: * Had cardiac cath in March 2022 which showed mild to moderate disease. Recommendation was for medical management. Not on antiplatelets due to history of GI bleed. On metoprolol and statin as well as lisinopril #CKD stage IV: Creatinine is 2.57 today which is around his baseline. Will monitor. #Chronic thrombocytopenia: Will continue monitoring. #GERD with history of GI bleed. 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 * He also had EGD in March 2023 with capsule endoscopy which showed short segments of inflammation with no active bleeding. He did have repeat EGD done in 12/31/2019 for which showed oozing gastriculcer which was biopsied. * Most recent EGD was seen February 2020 for which showed chronic gastritis with hemorrhage and also duodenal ulcers were treated with a heater probe. * On IV pantoprazole and sulcal fate. #Type 2 diabetes mellitus: Oral meds on hold. Insulin sliding scale. ACT checks ACHS. #Hypertension: On torsemide and metoprolol as well as lisinopril. IV hydralazine as needed #Chronic anemia: hemoGlobin was 7.9 today. Baseline hemoglobin is around 7-8. Will monitor closely. #Hyperlipidemia: On statin #Hypothyroidism: On liothyronine #DVT prophylaxis: SCDs Charges/Coding Visit Charges Inpatient E&M: 09313 Subs Hosp L2 06/24/24 1417 Sarai Alcantara MD Cosigner Signature (if applicable): CC: ~ Signed [facility]04-15-2025 Discharge summary Author Delia Tai [facility] Note Date/Time June 24, 2024 8:2 5am [facility] Medical Records Department [address] [place] [address] Emergency Department Summary 06/23/24 MR#: [id number] Acct: [id number] Name: BEULAH BRIGHT Rep #:[id number] : 1940 84 From: Delia MCKEON PCP: Dr. Yuridia Hernandez MD Status:ADM I N Location: [address] <MIKE Calhoun - Last Filed: 06/23/24 18:10> History of Present Illness Chief Complaint: Shortness of Breath Narrative Narrative: 84-year-old female with PMH of HTN, HLD, DM2, COPD, CHF, GI bleed, anemia stateshe developed shortness of breath yesterday. He wears 2.5 L of oxygen at baseline. He felt more short of breath with wheezing today despite using his nebulizer and called EMS. He states that he turned it up to 4 L and he felt better. He denies fever but has had some chills. No cough. No chest pain. Denies vomiting or diarrhea or melena hematochezia. He states his aspirin was discontinued when he had a prior GI bleed. He is not on blood thinners. [facility] <MIKE Calhoun - Last Filed: 06/23/24 18:10> [facility] Medical History Anemia Acute dyspnea Obesity (BMI 30.0-34.9) Anemia Upper GI bleed History of valvular heart disease Acute on chronic anemia Acute dyspnea Acute on chronic renal insufficiency Acute on chronic anemia Symptomatic anemia Abnormal ECG Elevated troponin Shortness of breath Acute upper gastrointestinal bleeding Essential hypertension Renal insufficiency Non-ST elevation (NSTEMI) myocardial infarction COPD (chronic obstructive pulmonary disease) Loss of hearing No natural teeth Wears glasses Poor historian Thyroid disease Low iron High cholesterol Syncope History of GI bleed Shortness of breath on exertion History of echocardiogram Cardiology follow-up encounter Symptomatic anemia Diabetes Kidney disease Former smoker On home oxygen therapy TIA (transient ischemic attack) Myocardial infarct Hypertension Diastolic CHF Acute and chronic respiratory failure with hypoxia History of CAD (coronary artery disease) Nonrheumatic aortic (valve) stenosis Mild left ventricular hypertrophy History of left heart catheterization (LHC) (~03/15/22) Atherosclerotic heart disease of [place] coronary artery without angina pectoris Aortic valve stenosis, acquired CAD (coronary artery disease) COPD (chronic obstructive pulmonary disease) Polyarthralgia Diabetes mellitus, type 2 Former tobacco use Obesity Hypothyroidism HLD (hyperlipidemia) HTN (hypertension) Chronic respiratory failure with hypoxia Home Medications ?Medication ?Instructions ?Recorded ?Last Taken ?Type atorvastatin 80 mg tablet 80 mg PO DAILY CHOLESTEROL 0 05/02/21 02/27/24 History cholecalciferol (vitamin D3) 25 25 mcg PO DAILY vitami n 05/02/21 02/28/24 History mcg (1,000 unit) capsule ipratropium 0.5 mg-albuterol 3 mg 3 ml inhalation 4X/D AY PRN sob 05/02/21 11/18/23 History (2.5 mg base)/3 mL nebulization soln liothyronine 25 mcg tablet 25 mcg PO DAILY THYROID 02/28/24 History tiotropium bromide 18 mcg capsule 18 mcg inhalation DA SARAH SOB 05/02/21 02/28/24 History with inhalation device (Spiriva with HandiHaler) vitamins A,C,S-jfit-ltdjgt 4,296 1 cap PO BID vitamin 12/13/21 02/28/24 History mcg-226 mg-90 mg capsule (PreserVision AREDS) glimepiride 2 mg tablet 2 mg PO DAILY DM #3 tabs 02/28/24 Rx empagliflozin 10 mg tablet 10 mg PO DAILY heart failur e 30 04/26/23 12/06/23 Rx (Jardiance) days #30 tabs metoprolol succinate 25 mg 25 mg PO DAILY heart 02/28/24 History tablet,extended release 24 hr ferrous sulfate 325 mg (65 mg 325 mg PO BID supplement 11/14/23 02/28/24 History iron) tablet (FeroSul) torsemide 5 mg tablet 5 mg PO DAILY water pill 02/28/24 History furosemide 40 mg tablet 40 mg PO DAILY water pill 02/28/24 History lisinopril 10 mg tablet 10 mg PO DAILY 02/28/2402/09 History pantoprazole 40 mg tablet,delayed 40 mg PO BID #60 tab s 03/02/24 Unknown Rx release sucralfate 1 gram tablet 1 g PO Q6H 90 days #360 tabs 05/01/24 Unknown Rx Allergy/AdvReac Type Severity Reaction Status Date / Time aliskiren (From Valturna) Allergy Intermediate Other Verified 06/23/24 14:33 valsartan (From Valturna) Allergy Intermediate Other Verified 06/23/24 14:33 codeine AdvReac Upset Verified 06/23/24 14:33 Stomach Family History Mother CVA (cerebral vascular accident) Heart disease Myocardial infarction Hx of CABG Hypertension Father CVA (cerebral vascular accident) Heart disease Surgical History S/P cataract extraction Social History household members: none housing: house Smoking Status: Former smoker how long ago did patient quit smoking: Quit 2010, prior 1 ppd since teen. alcohol intake: former year quit: 2010 substance use type: does not use ROS <MIKE Calhoun - Last Filed: 06/23/24 18:10> ROS ED ROS Narrative Constitutional: Positive for chills. No fever. CVS: Negative for palpitations, chest pain, syncope. Respiratory: Positive for shortness of breath. GI: Negative for abdominal pain, nausea, vomiting, diarrhea, melena, hematochezia. EXAM <MIKE Calhoun - Last Filed: 06/23/24 18:10> Physical Exam Narrative Exam Narrative: CONST: Patient in mild respiratory distress on nasal cannula. EYES: Normal inspection. NECK: Normal inspection. RESP: Tachypneic around 26/minute, diminished lung sounds with wheezing and bibasilar crackles. CVS: Regular rate and rhythm, no murmur, no gallop. SKIN: Color normal, no rash, warm, dry, intact. EXTREMITIES: Normal appearance, trace pedal ankle edema. NEURO: Alert and answering questions appropriately. PSYCH: Normal affect. Const Vital Signs: 06/23/24 14:28 06/23/24 14:33 06/23/24 14:33 Temperature 97.5 F L 97.6 F L Temperature Source Oral Temporal Pulse Rate 107 H 106 H Respiratory Rate 25 H 29 H Respiratory Effort Short of Breath Labored Accessory Muscle Use Respiratory Depth Shallow Respiratory Pattern Tachypnea Blood Pressure 140/72 H 138/49 H Blood Pressure Mean 94 78 Pulse Ox 97 97 Oxygen Delivery Method Nasal Cannula Nasal Cannula Nasal Cannula Oxygen Flow Rate (L/min) 2 2 2 06/23/24 14:54 06/23/24 15:33 06/23/24 15:51 Temperature 97.5 F L Temperature Source Oral Pulse Rate 100 111 H 112 H Respiratory Rate 16 29 H 20 H Respiratory Effort Respiratory Depth Respiratory Pattern Blood Pressure 124/62 H Blood Pressure Mean 82 Pulse Ox 98 Oxygen Delivery Method Nasal Cannula Oxygen Flow Rate (L/min) 2 06/23/24 16:00 06/23/24 17:00 06/23/24 17:33 Temperature 97.9 F 98 F 98 F Temperature Source Oral Oral Pulse Rate 117 H 113 H 113 H Respiratory Rate 20 H 19 H 19 H Respiratory Effort Respiratory Depth Respiratory Pattern Blood Pressure 117/70 129/49 H 129/49 H Blood Pressure Mean 85 75 75 Pulse Ox 95 96 96 Oxygen Delivery Method Nasal Cannula Nasal Cannula Oxygen Flow Rate (L/min) 2 <Dr. Eric Lester MD - Last Filed: 06/23/24 15:51> Physical Exam Const Vital Signs: 06/23/24 14:28 06/23/24 14:33 06/23/24 14:33 Temperature 97.5 F L 97.6 F L Temperature Source Oral Temporal Pulse Rate 107 H 106 H Respiratory Rate 25 H 29 H Respiratory Effort Short of Breath Labored Accessory Muscle Use Respiratory Depth Shallow Respiratory Pattern Tachypnea Blood Pressure 140/72 H 138/49 H Blood Pressure Mean 94 78 Pulse Ox 97 97 Oxygen Delivery Method Nasal Cannula Nasal Cannula Nasal Cannula Oxygen Flow Rate (L/min) 2 2 2 06/23/24 14:54 06/23/24 15:33 06/23/24 15:51 Temperature 97.5 F L Temperature Source Oral Pulse Rate 100 111 H 112 H Respiratory Rate 16 29 H 20 H Respiratory Effort Respiratory Depth Respiratory Pattern Blood Pressure 124/62 H Blood Pressure Mean 82 Pulse Ox 98 Oxygen Delivery Method Nasal Cannula Oxygen Flow Rate (L/min) 2 06/23/24 16:00 06/23/24 17:00 06/23/24 17:33 Temperature 97.9 F 98 F 98 F Temperature Source Oral Oral Pulse Rate 117 H 113 H 113 H Respiratory Rate 20 H 19 H 19 H Respiratory Effort Respiratory Depth Respiratory Pattern Blood Pressure 117/70 129/49 H 129/49 H Blood Pressure Mean 85 75 75 Pulse Ox 95 96 96 Oxygen Delivery Method Nasal Cannula Nasal Cannula Oxygen Flow Rate (L/min) 2 MDM <MIKE Calhoun - Last Filed: 06/23/24 18:10> [facility] Narrative Medical decision making narrative: Differential includes but not limited to: COPD exacerbation, CHF, pneumonia, viral illness, anemia 84-year-old male with history of COPD, CHF, multiple comorbidities presents withincreased shortness of breath and wheezing x 2 days. He wears 2 L of oxygen at baseline. He is in mild respiratory distress. BP 140/72, HR 107, RR 26, 97% on2 L, afebrile. Lungs have wheezing with prolonged expiratory phase and bibasilar crackles. He has trace ankle edema. Labs show WBC 5.9. Hemoglobin of 8.5 is slightly lower than previous but within his normal range. He send no recent symptoms of GI bleeding. He is not on aspirin or blood thinners. Electrolytes are normal. BUN 86 and creatinine of 2.36 are at baseline. Glucose 200. EKG is nonischemic. Troponin is 83. Patient has had elevated troponins inthe past on the old cardiac enzymes. His last cardiac catheterization was 03/15/2022 which showed mild to moderate disease with plan to treat medically. Hehas had elevated troponins since then but cardiology recommended medical management due to his history of recurrent anemia and GI bleeds which is why he is not on any aspirin or blood thinners. proBNP is 2233 but he has no signs of congestive heart failure on x-ray and I expect this is more elevated from his chronic kidney disease. His exam is more consistent with a COPD exacerbation and he was given aerosols and Solu-Medrol. I discussed the case with the hospitalist for admission. External records reviewed: Echocardiogram 12/08/2023 Normal left ventricle, EF 50 to 55%. Lab Data Attestation: I reviewed the patient's lab results. Labs: Laboratory Results - last 24 hr 06/23/24 06/23/24 14:55 16:51 WBC 5.9 RBC 2.84 L Hgb 8.5 L Hct 27.0 L MCV 95.1 H MCH 29.9 MCHC 31.5 L RDW Std Deviation 45.3 H RDW Coeff of John 13.2 Plt Count 101 L MPV 10.5 Immature Gran % (Auto) 0.300 Neut % (Auto) 71.4 H Lymph % (Auto) 17.7 L [place] % (Auto) 6.6 Eos % (Auto) 3.5 Baso % (Auto) 0.5 Absolute Neuts (auto) 4.2 Absolute Lymphs (auto) 1.05 Nucleated RBC % 0 Sodium 142 Potassium 4.3 Chloride 103 Carbon Dioxide 25.6 Anion Gap 13 BUN 86 H Creatinine 2.36 H Estim Creat Clear Calc 22.61 L Est GFR (MDRD) Non-Af 26 L BUN/Creatinine Ratio 36.4 H Glucose 200 H Calcium 9.3 Troponin T High Sens 83 H* Troponin T Hi Sens 2 Hr 83 H* NT pro BNP II 2233 H Radiography Diagnostic Testing: Clinical Impression(s) from Imaging Studies Chest X-Ray 06/23/24 15:05 IMPRESSION: No acute abnormality is seen. Reading Location: [place] [address] ED attending interpretation of 1-view chest x-ray shows normal heart size, no acute infiltrate, edema, or effusion. EKG Initial EKG: Attestation: I personally reviewed and interpreted this EKG as follows: Comments: Sinus rhythm with first-degree AV block at [address] changes, no STEMI <Dr. Eric Lester MD - Last Filed: 06/23/24 15:51> [facility] Lab Data Labs: Laboratory Results - last 24 hr 06/23/24 06/23/24 14:55 16:51 WBC 5.9 RBC 2.84 L Hgb 8.5 L Hct 27.0 L MCV 95.1 H MCH 29.9 MCHC 31.5 L RDW Std Deviation 45.3 H RDW Coeff of John 13.2 Plt Count 101 L MPV 10.5 Immature Gran % (Auto) 0.300 Neut % (Auto) 71.4 H Lymph % (Auto) 17.7 L [place] % (Auto) 6.6 Eos % (Auto) 3.5 Baso % (Auto) 0.5 Absolute Neuts (auto) 4.2 Absolute Lymphs (auto) 1.05 Nucleated RBC % 0 Sodium 142 Potassium 4.3 Chloride 103 Carbon Dioxide 25.6 Anion Gap 13 BUN 86 H Creatinine 2.36 H Estim Creat Clear Calc 22.61 L Est GFR (MDRD) Non-Af 26 L BUN/Creatinine Ratio 36.4 H Glucose 200 H Calcium 9.3 Troponin T High Sens 83 H* Troponin T Hi Sens 2 Hr 83 H* NT pro BNP II 2233 H Radiography Diagnostic Testing: Clinical Impression(s) from Imaging Studies Chest X-Ray 06/23/24 15:05 IMPRESSION: No acute abnormality is seen. Reading Location: [place] [address] Treatment and Re-Evaluation Comments:: I have personally performed a face to face assessment of the patient and have reviewed the ERIKA Note. I performed a substantive portion of the visit including all aspects of the following. My young findings include: History is increased shortness of breath and weakness today. Mild nonproductivecough, having some chills and feeling weak. Denies any GI bleeding symptoms which she has a history of. Exam is no respiratory distress but tachypneic and diffuse expiratory wheezes and prolonged expiratory phase. Heart is regular. Trace pedal edema. No JVD. Medical Decison Making 1 view chest x-ray on my interpretation shows no acute pulmonary edema or pneumonia. Radiology in agreement. EKG shows no acute injury pattern, he is chronically anemic and similarly so with not a big change. After nebulizer treatments, he still dyspneic and appears weak. He would be amenable to staying in the hospital if he is not a lot better after the other treatments we are giving him. Other additions or changes: [None] Discharge Plan Triage Chief Complaint: Shortness of Breath ED Midlevel Provider: Delia Tai ED Provider: Eric Lester Dx/Rx/DC Orders Clinical Impression: COPD exacerbation, Chronic anemia, Chronic kidney disease, Elevated troponin, Debility Primary Care Provider: Yuridia Hernandez What to do if you have Problems For any increased pain, shortness of breath, bleeding, nausea or vomiting, chest pain, or any unexpected problems, contact your Primary Care Provider. Call [facility] ([phone]) or report to the closest Emergency Room. Call 911 if necessary. 06/23/24 1810 <Electronically signed by Delia MCKEON> Cosigner Signature (if applicable): 06/24/24 0825 <Electronically signed by Eric Lester MD> CC: Dr. Yuridia Hernandez MD ~ Signed [facility] Work Phone: [phone] Discharge summary [facility] Medical Records Department [address] [place] [address] Emergency Department Summary 06/23/24 MR#: [id number] Acct: [id number] Name: BEULAH BRIGHT Rep #:[id number] : 1940 84 From: Delia MCKEON PCP: Dr. Yuridia Hernandez MD Status:ADM I N Location: [place] [address] HPI History of Present Illness Chief Complaint: Shortness of Breath Narrative Narrative: 84-year-old female with PMH of HTN, HLD, DM2, COPD, CHF, GI bleed, anemia stateshe developed shortness of breath yesterday. He wears 2.5 L of oxygen at baseline. He felt more short of breath with wheezing today despite using his nebulizer and called EMS. He states that he turned it up to 4 L and hefelt better. He denies fever but has had some chills. No cough. No chest pain. Denies vomiting or diarrhea or melena hematochezia. He states his aspirin was discontinued when he had a prior GI bleed.He is not on blood thinners. [facility] Medical History Anemia Acute dyspnea Obesity (BMI 30.0-34.9) Anemia Upper GI bleed History of valvular heart disease Acute on chronic anemia Acute dyspnea Acute on chronic renal insufficiency Acute on chronic anemia Symptomatic anemia Abnormal ECG Elevated troponin Shortness of breath Acute upper gastrointestinal bleeding Essential hypertension Renal insufficiency Non-ST elevation (NSTEMI) myocardial infarction COPD (chronic obstructive pulmonary disease) Loss of hearing No natural teeth Wears glasses Poor historian Thyroid disease Low iron High cholesterol Syncope History of GI bleed Shortness of breath on exertion History of echocardiogram Cardiology follow-up encounter Symptomatic anemia Diabetes Kidney disease Former smoker On home oxygen therapy TIA (transient ischemic attack) Myocardial infarct Hypertension Diastolic CHF Acute and chronic respiratory failure with hypoxia History of CAD (coronary artery disease) Nonrheumatic aortic (valve) stenosis Mild left ventricular hypertrophy History of left heart catheterization (LHC) (~03/15/22) Atherosclerotic heart disease of [place] coronary artery without angina pectoris Aortic valve stenosis, acquired CAD (coronary artery disease) COPD (chronic obstructive pulmonary disease) Polyarthralgia Diabetes mellitus, type 2 Former tobacco use Obesity Hypothyroidism HLD (hyperlipidemia) HTN (hypertension) Chronic respiratory failure with hypoxia Home Medications ?Medication ?Instructions ?Recorded ?Last Taken ?Type atorvastatin 80 mg tablet 80 mg PO DAILY CHOLESTEROL 0 05/02/21 02/27/24 History cholecalciferol (vitamin D3) 25 25 mcg PO DAILY vitami n 05/02/21 02/28/24 History mcg (1,000 unit) capsule ipratropium 0.5 mg-albuterol 3 mg 3 ml inhalation 4X/D AY PRN sob 05/02/21 11/18/23 History (2.5 mg base)/3 mL nebulization soln liothyronine 25 mcg tablet 25 mcg PO DAILY THYROID 02/28/24 History tiotropium bromide 18 mcg capsule 18 mcg inhalation DA SARAH SOB 05/02/21 02/28/24 History with inhalation device (Spiriva with HandiHaler) vitamins A,C,A-knab-dbyxkf 4,296 1 cap PO BID vitamin 12/13/21 02/28/24 History mcg-226 mg-90 mg capsule (PreserVision AREDS) glimepiride 2 mg tablet 2 mg PO DAILY DM #3 tabs 02/28/24 Rx empagliflozin 10 mg tablet 10 mg PO DAILY heart failur e 30 04/26/23 12/06/23 Rx (Jardiance) days #30 tabs metoprolol succinate 25 mg 25 mg PO DAILY heart 02/28/24 History tablet,extended release 24 hr ferrous sulfate 325 mg (65 mg 325 mg PO BID supplement 11/14/23 02/28/24 History iron) tablet (FeroSul) torsemide 5 mg tablet 5 mg PO DAILY water pill 02/28/24 History furosemide 40 mg tablet 40 mg PO DAILY water pill 02/28/24 History lisinopril 10 mg tablet 10 mg PO DAILY 02/28/2402/09 History pantoprazole 40 mg tablet,delayed 40 mg PO BID #60 tab s 03/02/24 Unknown Rx release sucralfate 1 gram tablet 1 g PO Q6H 90 days #360 tabs 05/01/24 Unknown Rx Allergy/AdvReac Type Severity Reaction Status Date / Time aliskiren (From Valturna) Allergy Intermediate Other Verified 06/23/24 14:33 valsartan (From Valturna) Allergy Intermediate Other Verified 06/23/24 14:33 codeine AdvReac Upset Verified 06/23/24 14:33 Stomach Family History Mother CVA (cerebral vascular accident) Heart disease Myocardial infarction Hx of CABG Hypertension Father CVA (cerebral vascular accident) Heart disease Surgical History S/P cataract extraction Social History household members: none housing: house Smoking Status: Former smoker how long ago did patient quit smoking: Quit 2010, prior 1 ppd since teen. alcohol intake: former year quit: 2010 substance use type: does not use ROS ROS ED ROS Narrative Constitutional: Positive for chills. No fever. CVS: Negative for palpitations, chest pain, syncope. Respiratory: Positive for shortness of breath. GI: Negative for abdominal pain, nausea, vomiting, diarrhea, melena, hematochezia. EXAM Physical Exam Narrative Exam Narrative: CONST: Patient in mild respiratory distress on nasal cannula. EYES: Normal inspection. NECK: Normal inspection. RESP: Tachypneic around 26/minute, diminished lung sounds with wheezing and bibasilar crackles. CVS: Regular rate and rhythm, no murmur, no gallop. SKIN: Color normal, no rash, warm, dry, intact. EXTREMITIES: Normal appearance, trace pedal ankle edema. NEURO: Alert and answering questions appropriately. PSYCH: Normal affect. Const Vital Signs: 06/23/24 14:28 06/23/24 14:33 06/23/24 14:33 Temperature 97.5 F L 97.6 F L Temperature Source Oral Temporal Pulse Rate 107 H 106 H Respiratory Rate 25 H 29 H Respiratory Effort Short of Breath Labored Accessory Muscle Use Respiratory Depth Shallow Respiratory Pattern Tachypnea Blood Pressure 140/72 H 138/49 H Blood Pressure Mean 94 78 Pulse Ox 97 97 Oxygen Delivery Method Nasal Cannula Nasal Cannula Nasal Cannula Oxygen Flow Rate (L/min) 2 2 2 06/23/24 14:54 06/23/24 15:33 06/23/24 15:51 Temperature 97.5 F L Temperature Source Oral Pulse Rate 100 111 H 112 H Respiratory Rate 16 29 H 20 H Respiratory Effort Respiratory Depth Respiratory Pattern Blood Pressure 124/62 H Blood Pressure Mean 82 Pulse Ox 98 Oxygen Delivery Method Nasal Cannula Oxygen Flow Rate (L/min) 2 06/23/24 16:00 06/23/24 17:00 06/23/24 17:33 Temperature 97.9 F 98 F 98 F Temperature Source Oral Oral Pulse Rate 117 H 113 H 113 H Respiratory Rate 20 H 19 H 19 H Respiratory Effort Respiratory Depth Respiratory Pattern Blood Pressure 117/70 129/49 H 129/49 H Blood Pressure Mean 85 75 75 Pulse Ox 95 96 96 Oxygen Delivery Method Nasal Cannula Nasal Cannula Oxygen Flow Rate (L/min) 2 Physical Exam Const Vital Signs: 06/23/24 14:28 06/23/24 14:33 06/23/24 14:33 Temperature 97.5 F L 97.6 F L Temperature Source Oral Temporal Pulse Rate 107 H 106 H Respiratory Rate 25 H 29 H Respiratory Effort Short of Breath Labored Accessory Muscle Use Respiratory Depth Shallow Respiratory Pattern Tachypnea Blood Pressure 140/72 H 138/49 H Blood Pressure Mean 94 78 Pulse Ox 97 97 Oxygen Delivery Method Nasal Cannula Nasal Cannula Nasal Cannula Oxygen Flow Rate (L/min) 2 2 2 06/23/24 14:54 06/23/24 15:33 06/23/24 15:51 Temperature 97.5 F L Temperature Source Oral Pulse Rate 100 111 H 112 H Respiratory Rate 16 29 H 20 H Respiratory Effort Respiratory Depth Respiratory Pattern Blood Pressure 124/62 H Blood Pressure Mean 82 Pulse Ox 98 Oxygen Delivery Method Nasal Cannula Oxygen Flow Rate (L/min) 2 06/23/24 16:00 06/23/24 17:00 06/23/24 17:33 Temperature 97.9 F 98 F 98 F Temperature Source Oral Oral Pulse Rate 117 H 113 H 113 H Respiratory Rate 20 H 19 H 19 H Respiratory Effort Respiratory Depth Respiratory Pattern Blood Pressure 117/70 129/49 H 129/49 H Blood Pressure Mean 85 75 75 Pulse Ox 95 96 96 Oxygen Delivery Method Nasal Cannula Nasal Cannula Oxygen Flow Rate (L/min) 2 MDM MDM MDM Narrative Medical decision making narrative: Differential includes but not limited to: COPD exacerbation, CHF, pneumonia, viral illness, anemia 84-year-old male with history of COPD, CHF, multiple comorbidities presents withincreased shortnessof breath and wheezing x 2 days. He wears 2 L of oxygen at baseline. He is in mild respiratory distress. BP 140/72, HR 107, RR 26, 97% on2 L, afebrile. Lungs have wheezing with prolonged expiratory phase and bibasilar crackles. He has trace ankle edema. Labs show WBC 5.9. Hemoglobin of 8.5 is slightly lower than previous but within his normal range. He send no recent symptoms of GI bleeding. He is not on aspirin or blood thinners. Electrolytes are normal. BUN 86 and creatinine of 2.36 are at baseline. Glucose 200. EKG is nonischemic. Troponin is 83. Patient has had elevated troponins inthe past on the old cardiac enzymes. His last cardiac catheterization was 03/15/2022 which showed mild to moderate disease with plan to treat medically. Hehas had elevated troponins since then but cardiology recommended medical management due to his history of recurrent anemia and GI bleeds which is why he is not on any aspirin or blood thinners. proBNP is 2233 but he has no signs of congestive heart failure on x-ray and I expect this is more elevated from his chronic kidney disease. His exam is more consistent with a COPD exacerbation and he was given aerosols and Solu-Medrol. I discussed the case with the hospitalist for admission. External records reviewed: Echocardiogram 12/08/2023 Normal left ventricle, EF 50 to 55%. Lab Data Attestation: I reviewed the patient's lab results. Labs: Laboratory Results - last 24 hr 06/23/24 06/23/24 14:55 16:51 WBC 5.9 RBC 2.84 L Hgb 8.5 L Hct 27.0 L MCV 95.1 H MCH 29.9 MCHC 31.5 L RDW Std Deviation 45.3 H RDW Coeff of John 13.2 Plt Count 101 L MPV 10.5 Immature Gran % (Auto) 0.300 Neut % (Auto) 71.4 H Lymph % (Auto) 17.7 L [place] % (Auto) 6.6 Eos % (Auto) 3.5 Baso % (Auto) 0.5 Absolute Neuts (auto) 4.2 Absolute Lymphs (auto) 1.05 Nucleated RBC % 0 Sodium 142 Potassium 4.3 Chloride 103 Carbon Dioxide 25.6 Anion Gap 13 BUN 86 H Creatinine 2.36 H Estim Creat Clear Calc 22.61 L Est GFR (MDRD) Non-Af 26 L BUN/Creatinine Ratio 36.4 H Glucose 200 H Calcium 9.3 Troponin T High Sens 83 H* Troponin T Hi Sens 2 Hr 83 H* NT pro BNP II 2233 H Radiography Diagnostic Testing: Clinical Impression(s) from Imaging Studies Chest X-Ray 06/23/24 15:05 IMPRESSION: No acute abnormality is seen. Reading Location: [place] [address] ED attending interpretation of 1-view chest x-ray shows normal heart size, no acute infiltrate, edema, or effusion. EKG Initial EKG: Attestation: I personally reviewed and interpreted this EKG as follows: Comments: Sinus rhythm with first-degree AV block at [address] changes, no STEMI MDM Lab Data Labs: Laboratory Results - last 24 hr 06/23/24 06/23/24 14:55 16:51 WBC 5.9 RBC 2.84 L Hgb 8.5 L Hct 27.0 L MCV 95.1 H MCH 29.9 MCHC 31.5 L RDW Std Deviation 45.3 H RDW Coeff of John 13.2 Plt Count 101 L MPV 10.5 Immature Gran % (Auto) 0.300 Neut % (Auto) 71.4 H Lymph % (Auto) 17.7 L [place] % (Auto) 6.6 Eos % (Auto) 3.5 Baso % (Auto) 0.5 Absolute Neuts (auto) 4.2 Absolute Lymphs (auto) 1.05 Nucleated RBC % 0 Sodium 142 Potassium 4.3 Chloride 103 Carbon Dioxide 25.6 Anion Gap 13 BUN 86 H Creatinine 2.36 H Estim Creat Clear Calc 22.61 L Est GFR (MDRD) Non-Af 26 L BUN/Creatinine Ratio 36.4 H Glucose 200 H Calcium 9.3 Troponin T High Sens 83 H* Troponin T Hi Sens 2 Hr 83 H* NT pro BNP II 2233 H Radiography Diagnostic Testing: Clinical Impression(s) from Imaging Studies Chest X-Ray 06/23/24 15:05 IMPRESSION: No acute abnormality is seen. Reading Location: [place] [address] Treatment and Re-Evaluation Comments:: I have personally performed a face to face assessment of the patient and have reviewed the ERIKA Note. I performed a substantive portion of the visit including all aspects of the following. My young findings include: History is increased shortness of breath and weakness today. Mild nonproductivecough, having some chills and feeling weak. Denies any GI bleeding symptoms which she has a history of. Exam is no respiratory distress but tachypneic and diffuse expiratory wheezes and prolonged expiratory phase. Heart is regular. Trace pedal edema. No JVD. Medical Decison Making 1 view chest x-ray on my interpretation shows no acute pulmonary edema or pneumonia. Radiology in agreement. EKG shows no acute injury pattern, he is chronically anemic and similarly so with not a big change. After nebulizer treatments, he still dyspneic and appears weak. He would be amenable to staying in the hospital if he is not a lot better after the other treatments weare giving him. Other additions or changes: [None] Discharge Plan Triage Chief Complaint: Shortness of Breath ED Midlevel Provider: Delia Tai ED Provider: Eric Lester Dx/Rx/DC Orders Clinical Impression: COPD exacerbation, Chronic anemia, Chronic kidney disease, Elevated troponin, Debility Primary Care Provider: Yuridia Hernandez What to do if you have Problems For any increased pain, shortness of breath, bleeding, nausea or vomiting, chest pain, or any unexpected problems, contact your Primary Care Provider. Call [facility] ([phone]) or report to the closest Emergency Room. Call 911 if necessary. 06/23/24 1810 Cosigner Signature (if applicable): 06/24/24 1154 CC: Dr. Yuridia Hernandez MD ~ Signed [facility]04-14-2025 History and physical note Author Tracy Angel [facility] Note Date/Time June 23, 2024 5:5 4pm [facility] Medical Records Department [address] [place] [address] H&P Exam - Hospitalist 06/23/24 1739 MR#: [id number] Acct: [id number] Name: BEULAH BRIGHT Rep #:[id number] : 1940 84 From: Tracy Angel MD PCP: Dr. Yuridia Hernandez MD Status:ADM I N Location: [id number] HPI - General General Date of Admission: 06/23/24 Date of Service: 06/23/24 Chief Complaint: Dyspnea, wheezing. HPI Narrative The patient is an 84 y/o M w/ PMHx: Chronic anemia/AOCD/Fe deficiency anemia, CKD stage IV per GFR trending, GERD w/ Hx GI bleeding, Chronic thrombocytopenia,Obesity, Chronic COPD w/ Chronic Hypoxic Respiratory Failure (2.5L NC), HTN, HLD, Diabetes mellitus type II, HFpEF, Hx TIA, Former tobacco use, Hypothyroidism, Valvular Heart Disease, Nonobstructive CAD who presents to the [facility] ED on with history of worsening shortness of breath starting the day prior with significant wheezing and fatigue, worse with exertion turning his own oxygen supplementation up to 4 L with some improvement with no recent fevers but he does report subjective chills no worsened cough or productive sputum with no recent nausea, emesis, diarrhea, melena or hematochezia prompting eventual ED evaluation to be cautious. Patient does havechronic orthopnea and this has been unchanged. He notes that his weights have been stable. From review of his weights in the system it does appear that most recently 05/28/2024 he was 181 pounds and 0.4 this on 03/24/2024 he was 182 poundsthis significantly stable as far as weight is concerned. Workup in the ED included T97.5 Oral, heart rate 107, BP 140/72, respiratory rate 25, 97% on 2 L nasal cannula noted most recently on 05/28/2024 to be 93% on 3 L nasal cannula atthat time with most recent repeat vitals in the ED T98 oral, heart rate 113, BP 129/49, respiratory rate 19, 96% on 2 L nasal cannula, CBC with WC 5.9, hemoglobin 8.5, MCV 95.1, platelet 101 without marked shift, BMP with BUN/creatinine 86/2.36, GFR 26, glucose 200, initial troponin 83 with repeat delta pending upon requested evaluation of patient, BNP 2233, chest x-ray with no acute cardiopulmonary findings, EKG with sinus rhythm with first-degree AV block with no acute evidence of ischemia in the ED patient ministered DuoNeb therapies and Solu-Medrol 125 mg IV x 1. PFSH Medical History Anemia Acute dyspnea Obesity (BMI 30.0-34.9) Anemia Upper GI bleed History of valvular heart disease Acute on chronic anemia Acute dyspnea Acute on chronic renal insufficiency Acute on chronic anemia Symptomatic anemia Abnormal ECG Elevated troponin Shortness of breath Acute upper gastrointestinal bleeding Essential hypertension Renal insufficiency Non-ST elevation (NSTEMI) myocardial infarction COPD (chronic obstructive pulmonary disease) Loss of hearing No natural teeth Wears glasses Poor historian Thyroid disease Low iron High cholesterol Syncope History of GI bleed Shortness of breath on exertion History of echocardiogram Cardiology follow-up encounter Symptomatic anemia Diabetes Kidney disease Former smoker On home oxygen therapy TIA (transient ischemic attack) Myocardial infarct Hypertension Diastolic CHF Acute and chronic respiratory failure with hypoxia History of CAD (coronary artery disease) Nonrheumatic aortic (valve) stenosis Mild left ventricular hypertrophy History of left heart catheterization (LHC) (~03/15/22) Atherosclerotic heart disease of [place] coronary artery without angina pectoris Aortic valve stenosis, acquired CAD (coronary artery disease) COPD (chronic obstructive pulmonary disease) Polyarthralgia Diabetes mellitus, type 2 Former tobacco use Obesity Hypothyroidism HLD (hyperlipidemia) HTN (hypertension) Chronic respiratory failure with hypoxia Home Medications ?Medication ?Instructions ?Recorded ?Last Taken ?Type atorvastatin 80 mg tablet 80 mg PO DAILY CHOLESTEROL 0 05/02/21 02/27/24 History cholecalciferol (vitamin D3) 25 25 mcg PO DAILY vitami n 05/02/21 02/28/24 History mcg (1,000 unit) capsule ipratropium 0.5 mg-albuterol 3 mg 3 ml inhalation 4X/D AY PRN sob 05/02/21 11/18/23 History (2.5 mg base)/3 mL nebulization soln liothyronine 25 mcg tablet 25 mcg PO DAILY THYROID 02/28/24 History tiotropium bromide 18 mcg capsule 18 mcg inhalation DA SARAH SOB 05/02/21 02/28/24 History with inhalation device (Spiriva with HandiHaler) vitamins A,C,E-zjnd-ujyabn 4,296 1 cap PO BID vitamin 12/13/21 02/28/24 History mcg-226 mg-90 mg capsule (PreserVision AREDS) glimepiride 2 mg tablet 2 mg PO DAILY DM #3 tabs 02/28/24 Rx empagliflozin 10 mg tablet 10 mg PO DAILY heart failur e 30 04/26/23 12/06/23 Rx (Jardiance) days #30 tabs metoprolol succinate 25 mg 25 mg PO DAILY heart 02/28/24 History tablet,extended release 24 hr ferrous sulfate 325 mg (65 mg 325 mg PO BID supplement 11/14/23 02/28/24 History iron) tablet (FeroSul) torsemide 5 mg tablet 5 mg PO DAILY water pill 02/28/24 History furosemide 40 mg tablet 40 mg PO DAILY water pill 02/28/24 History lisinopril 10 mg tablet 10 mg PO DAILY 02/28/2402/09 History pantoprazole 40 mg tablet,delayed 40 mg PO BID #60 tab s 03/02/24 Unknown Rx release sucralfate 1 gram tablet 1 g PO Q6H 90 days #360 tabs 05/01/24 Unknown Rx Allergy/AdvReac Type Severity Reaction Status Date / Time aliskiren (From Valturna) Allergy Intermediate Other Verified 06/23/24 14:33 valsartan (From Valturna) Allergy Intermediate Other Verified 06/23/24 14:33 codeine AdvReac Upset Verified 06/23/24 14:33 Stomach Family History Mother CVA (cerebral vascular accident) Heart disease Myocardial infarction Hx of CABG Hypertension Father CVA (cerebral vascular accident) Heart disease Surgical History S/P cataract extraction Social History household members: none housing: house Smoking Status: Former smoker how long ago did patient quit smoking: Quit 2011, prior 1 ppd since teen. alcohol intake: former year quit: 2010 substance use type: does not use ROS ROS Narrative Admission Review of Systems: CONSTITUTIONAL: No weight loss, fever, chills, weight gain, + weakness or fatigue. HEENT: Eyes: No visual loss, blurred vision, double vision or yellow sclerae. Ears, Nose, Throat: No hearing loss, sneezing, congestion, runny nose or sore throat. SKIN: + Chronic bilateral lower extremity venous stasis skin changes, occasionalabrasion, occasional stage ecchymoses. CARDIOVASCULAR: + Chronic stable BL LE edema, not markedly pitting, chronic unchanged orthopnea. No chest pain/pressure/tightness, palpitations, syncopal events. RESPIRATORY: + Acute on chronic shortness of breath, occasional cough with occasional increased phlegm but no marked sputum production he notes, increased wheezing. No marked sputum, no hemoptysis. GASTROINTESTINAL: No anorexia, nausea, vomiting or diarrhea, abdominal pain, melena, BRBPR. GENITOURINARY: No dysuria, frequency, urgency or retention. NEUROLOGICAL: No headache, dizziness, syncope, paralysis, ataxia, numbness or tingling in the extremities, focal weakness, change in bowel or bladder control,seizure. MUSCULOSKELETAL: + muscle, back pain, joint pain or stiffness. HEMATOLOGIC: + anemia, easy bleeding/bruising. LYMPHATICS: No enlarged nodes. No history of splenectomy. PSYCHIATRIC: No history of depression or anxiety. ENDOCRINOLOGIC: No reports of sweating, cold or heat intolerance. No polyuria orpolydipsia. ALLERGIES: No history of asthma, hives, eczema or rhinitis. Vital Signs Vital Signs Vital Signs: 06/23/24 14:28 06/23/24 14:33 06/23/24 14:33 Temperature 97.5 F L 97.6 F L Temperature Source Oral Temporal Pulse Rate 107 H 106 H Respiratory Rate 25 H 29 H Respiratory Effort Short of Breath Labored Accessory Muscle Use Respiratory Depth Shallow Respiratory Pattern Tachypnea Blood Pressure 140/72 H 138/49 H Blood Pressure Mean 94 78 Pulse Ox 97 97 Oxygen Delivery Method Nasal Cannula Nasal Cannula Nasal Cannula Oxygen Flow Rate (L/min) 2 2 2 06/23/24 14:54 06/23/24 15:33 06/23/24 15:51 Temperature 97.5 F L Temperature Source Oral Pulse Rate 100 111 H 112 H Respiratory Rate 16 29 H 20 H Respiratory Effort Respiratory Depth Respiratory Pattern Blood Pressure 124/62 H Blood Pressure Mean 82 Pulse Ox 98 Oxygen Delivery Method Nasal Cannula Oxygen Flow Rate (L/min) 2 06/23/24 16:00 06/23/24 17:00 06/23/24 17:33 Temperature 97.9 F 98 F 98 F Temperature Source Oral Oral Pulse Rate 117 H 113 H 113 H Respiratory Rate 20 H 19 H 19 H Respiratory Effort Respiratory Depth Respiratory Pattern Blood Pressure 117/70 129/49 H 129/49 H Blood Pressure Mean 85 75 75 Pulse Ox 95 96 96 Oxygen Delivery Method Nasal Cannula Nasal Cannula Oxygen Flow Rate (L/min) 2 Weight Weight: 181 lb 10.574 oz Body Mass Index (BMI) 30.2 Physical Exam Narrative Physical Examination: General: Awake, alert, oriented x 3 and cooperative, seated upright in the ED bed, fatigued, no evidence of any distress. Skin: Normal color, normal turgor, no icterus, no cyanosis, chronic bilateral lower extremity venous stasis skin changes, occasional staged ecchymoses, abrasion HEENT: AT/NC, EOMI, PERRLA, MMM, no carotid bruits, no marked JVD noted, although difficult exam given thickened neck. Lungs: Diffusely diminished, > bases, appropriate effort, no evidence of any distress, currently maintained on chronic 2L NC, crackles at bases, diffuse softend expiratory wheezing also present however. Heart: Regular rate with regular rhythm; no gallop, rub audible. Abdomen: Soft, obese, NTTP, distant BS, difficult to discern distention and HSM given habitus. Extremities: No cyanosis, no clubbing, chronic bilateral lower extremity ankle to distal sherwood 1+ edema, stable per patient report. Neurological: Patient awake, alert, oriented as noted, cognitive function intact; pupils equally reactive to light and accommodation, cranial nerves grossly normal, moving all 4 extremities, no focal deficits, strength moderatelyto severely decreased secondary to acute presentation. Psychiatric: Affect appears fatigued, no acute evidence of depressive or anxietyfeelings. Results Lab / Micro Data 06/23/24 14:55 06/23/24 14:55 Labs: Laboratory Results - last 24 hr 06/23/24 14:55: WBC 5.9, RBC 2.84 L, Hgb 8.5 L, Hct 27.0 L, MCV 95.1 H, MCH 29.9, MCHC 31.5 L, RDW Std Deviation 45.3 H, RDW Coeff of John 13.2, Plt Count 101 L, MPV 10.5, Immature Gran % (Auto) 0.300, Neut % (Auto) 71.4 H, Lymph % (Auto) 17.7 L, [place] % (Auto) 6.6, Eos % (Auto) 3.5, Baso % (Auto) 0.5, Absolute Neuts (auto) 4.2, Absolute Lymphs (auto) 1.05, Nucleated RBC % 0, Sodium 142, Potassium 4.3, Chloride 103, Carbon Dioxide 25.6, Anion Gap 13, BUN 86 H, Creatinine 2.36 H, Estim Creat Clear Calc 22.61 L, Est GFR (MDRD) Non-Af 26 L, BUN/Creatinine Ratio 36.4 H, Glucose 200 H, Calcium 9.3, Troponin T High Sens 83 H*, NT pro BNP II 2233 H Micro: Microbiology 06/23/24 14:55 Mucosa - Nose SARS-CoV-2, Influenza & RSV (PCR) - Final Imaging Radiology Impression Chest X-Ray 06/23/24 15:05 IMPRESSION: No acute abnormality is seen. Reading Location: [facility] Assessment & Plan Assessment/Plan (1) Elevated troponin: (2) COPD exacerbation: PLAN: Plan The patient is an 84 y/o M w/ PMHx: Chronic anemia/AOCD/Fe deficiency anemia, CKD stage IV per GFR trending, GERD w/ Hx GI bleeding, Chronic thrombocytopenia,Obesity, Chronic COPD w/ Chronic Hypoxic Respiratory Failure (2.5L NC), HTN, HLD, Diabetes mellitus type II, HFpEF, Hx TIA, Former tobacco use, Hypothyroidism, Valvular Heart Disease, Nonobstructive CAD who presents to the [facility] ED on with history of worsening shortness of breath starting the day prior with significant wheezing and fatigue, worse with exertion turning his own oxygen supplementation up to 4 L with some improvement with no recent fevers but he does report subjective chills no worsened cough or productive sputum with no recent nausea, emesis, diarrhea, melena or hematochezia prompting eventual ED evaluation to be cautious. #1. Acute on Chronic Hypoxic Respiratory Failure secondary to Acute on COPD exacerbation: Will admit to PCU given elevated cardiac enzyme and concern for possibly cardiac component as well possibly secondary to demand given his respiratory presentation concurrently, maintain on oxygen with wean as toleratedto home oxygen supplementation, continue ATC duonebs, PRN albuterol, IV methylprednisolone and preferentially quickly transition to may be a very quick burst of therapy given significant GI bleed history, HOB, IS parameters, will obtain sputum Cx, respiratory viral panel, procalcitonin, will hold on immediately abx therapy but low threshold to add if appropriate. BNP was notablyelevated, will pulsed dose with Lasix 40 mg IV x 1 to be cautious but still uncertain if this is a component or not as well. #2. Indeterminate cardiac enzyme, uncertain significance: EKG in ED SR without acute evidence of ischemia, CXR w/ chronic changes with no acute cardiopulmonaryfindings otherwise, initial trop 83 with repeat delta pending. Will place on a monitored bed to assure no acute myocardial infarction with serial cardiac enzymes. Will continue to pursue enzyme trend and if significantly elevates mayconsider heparin however given significant GI bleed history preference to avoid. Holding off on aspirin therapy given significant bleed history as well and lessenzymes significantly rises. If enzyme rises notably will consult cardiology given significant history and most recent cardiac catheterization with mild to moderate disease only noted. If enzymes rise significantly we will also plan repeat echocardiogram. FLP in AM. Magnesium level requested. #3. HFpEF, possible decompensation but uncertain: BNP upon ED presentation notably elevated possibly secondary to significant underlying renal disease however, will avoid any hydration however to be cautious we will pulse dose withLasix IV x 1 as uncertain if this could still be a component, echocardiogram 12/07/2023 with EF 50 to 55%, continue statin, metoprolol, lisinopril, clarifyingif patient is on torsemide versus Lasix as both are listed, not on aspirin or antiplatelet therapy likely secondary to underlying significant GI bleed historyand anemia. Weights currently stable and does have chronic orthopnea that is unchanged. Will place neck irch wraps. Pending response low threshold to continue with IV Lasix regimen if necessary but still uncertain if this is decompensated. #4. Nonobstructive CAD: Most recent cardiac catheterization mid 03/15/22 with mild to moderate disease with medical management decision at that time, not on antiplatelet therapy secondary to significant GI bleed history, continue statin,metoprolol, lisinopril home regimen. Continue evaluation as noted. #5. Valvular heart disease: Most recent echocardiogram noted 12/07/2023 with EF 50 to 55%, mild to moderate mitral annular calcification, trivial MVI, Tri sinus/trileaflet aortic valve with trivial aortic valve insufficiency. #6. Chronic Kidney Disease Stage IV per GFR trending although has vacillated: Admission BUN/Cr 86/2.36, GFR 26, baseline renal function primarily 2.5-3.0, most recently previous 05/28/2024 creatinine 3.09 at that time, repeat BMP in AM. #7. Chronic macrocytic anemia, anemia of chronic disease, iron deficiency anemia: Admission hemoglobin 8.5, MCV 95.1, baseline hemoglobin primarily 7-9 range, stable, continue to trend, following with hematology outpatient, most recent visit 05/28/2024, encouraged continued IV iron supplementation per the direction outpatient. Continue oral iron supplementation. #8. Chronic thrombocytopenia: Admission platelet 101, baseline primarily 90-1 30 range, stable, continue to trend. #9. 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 pylori negative, 04/02/2023 EGD with capsule endoscopy with short segments of inflammation seen with no active bleeding concerns or significant findings, repeat EGD 12/31/2023 during admission with normal esophagus, oozing gastric ulcer which was biopsied, normal second portion of the duodenum, eventual follow-up most recent EGD 03/01/2024 with normal esophagus, chronic gastritis with hemorrhage treated with a heater probe, oozing duodenal ulcers with pigmented material treated with a heater probe. Encourage strongly continued routine follow-up outpatient with gastroenterology as previously arranged. Continue PPI and sucralfate regimen. #10. Diabetes mellitus type II: Hold oral home regimen, hemoglobin A1c requested, ADA diet, accu checks w/ ISS. #11. Hypertension: Continue home regimen including torsemide, metoprolol, lisinopril home regimen, clarifying is also listed on Lasix as well, PRN hydralazine. #12. Hyperlipidemia: Continue home statin regimen. AM FLP. #13. Hypothyroidism: Continue patient home liothyronine regimen. #14. History of TIA: Not on antiplatelet therapy possibly secondary to significant GI bleed history, clarified to be certain, continue statin, hypertensive regimen, temporally holding diabetic regimen as noted. #15. Obesity: Weight loss and lifestyle changes encouraged. #16. DVT prophylaxis: SCDs. #17. CODE status: Patient HCPOA is his daughter and living will is currently inplace. Discussed CODE status at length including difference between FULL code, DNR-CCA and DNR-CC status. Following discussions about the differences in these status, requested DNR-CCA, no intubation status which was confirmed with examples. Advanced Care Planning Face to Face Time: 16 minutes. Charges/Coding Visit Charges Inpatient E&M: 31477 Init Hosp L3 Procedures Hospitalists Procedures: 21031 Advncd Care Plan 30 Min 06/23/24 1754 <Electronically signed by Tracy Angel MD> Cosigner Signature (if applicable): CC: Dr. Tracy Angel MD; Dr. Yuridia Hernandez MD~ Signed [facility] Work Phone: [phone] History and physical note [facility] Medical Records Department [address] [place] [address] H&P Exam - Hospitalist 06/23/24 1734 MR#: [id number] Acct: [id number] Name: BEULAH BRIGHT Rep #:[id number] : 1940 84 From: Tracy Angel MD PCP: Dr. Yuridia Hernandez MD Status:ADM I N Location: [place] [address] HPI - General General Date of Admission: 06/23/24 Date of Service: 06/23/24 Chief Complaint: Dyspnea, wheezing. HPI Narrative The patient is an 84 y/o M w/ PMHx: Chronic anemia/AOCD/Fe deficiency anemia, CKD stage IV per GFR trending, GERD w/ Hx GI bleeding, Chronic thrombocytopenia,Obesity, Chronic COPD w/ Chronic Hypoxic Respiratory Failure (2.5L NC), HTN, HLD, Diabetes mellitus type II, HFpEF, Hx TIA, Former tobacco use, Hypothyroidism, Valvular Heart Disease, Nonobstructive CAD who presents to the [facility] ED on with history of worsening shortness of breath starting the day prior with significant wheezing and fatigue, worse with exertion turning his own oxygen supplementation up to 4 L with some improvement with no recent fevers but he does report subjective chills no worsened cough or productive sputum with no recent nausea, emesis, diarrhea, melena or hematochezia prompting eventualED evaluation to be cautious. Patient does havechronic orthopnea and this has been unchanged. He notes that his weights have been stable. From review of his weights in the system it does appear that most recently 05/28/2024 he was 181 pounds and 0.4 this on 03/24/2024 he was 182 poundsthis significantly stable as far as weight is concerned. Workup in the ED included T97.5 Oral, heart rate 107, BP 140/72, respiratory rate 25, 97% on 2 L nasal cannula noted most recently on 05/28/2024 to be 93% on 3L nasal cannula atthat time with most recent repeat vitals in the ED T98 oral, heart rate 113, BP 129/49, respiratory rate 19, 96% on 2 L nasal cannula, CBC with WC 5.9, hemoglobin 8.5, MCV 95.1, platelet 101 without marked shift, BMP with BUN/creatinine 86/2.36, GFR 26, glucose 200, initial troponin 83 with repeat delta pending upon requested evaluation of patient, BNP 2233, chest x-ray with no acute cardiopulmonary findings, EKG with sinus rhythm with first-degree AV block with no acute evidence of ischemia in the ED patient ministered DuoNeb therapies and Solu-Medrol 125 mg IV x 1. PFSH Medical History Anemia Acute dyspnea Obesity (BMI 30.0-34.9) Anemia Upper GI bleed History of valvular heart disease Acute on chronic anemia Acute dyspnea Acute on chronic renal insufficiency Acute on chronic anemia Symptomatic anemia Abnormal ECG Elevated troponin Shortness of breath Acute upper gastrointestinal bleeding Essential hypertension Renal insufficiency Non-ST elevation (NSTEMI) myocardial infarction COPD (chronic obstructive pulmonary disease) Loss of hearing No natural teeth Wears glasses Poor historian Thyroid disease Low iron High cholesterol Syncope History of GI bleed Shortness of breath on exertion History of echocardiogram Cardiology follow-up encounter Symptomatic anemia Diabetes Kidney disease Former smoker On home oxygen therapy TIA (transient ischemic attack) Myocardial infarct Hypertension Diastolic CHF Acute and chronic respiratory failure with hypoxia History of CAD (coronary artery disease) Nonrheumatic aortic (valve) stenosis Mild left ventricular hypertrophy History of left heart catheterization (LHC) (~03/15/22) Atherosclerotic heart disease of [place] coronary artery without angina pectoris Aortic valve stenosis, acquired CAD (coronary artery disease) COPD (chronic obstructive pulmonary disease) Polyarthralgia Diabetes mellitus, type 2 Former tobacco use Obesity Hypothyroidism HLD (hyperlipidemia) HTN (hypertension) Chronic respiratory failure with hypoxia Home Medications ?Medication ?Instructions ?Recorded ?Last Taken ?Type atorvastatin 80 mg tablet 80 mg PO DAILY CHOLESTEROL 0 05/02/21 02/27/24 History cholecalciferol (vitamin D3) 25 25 mcg PO DAILY vitami n 05/02/21 02/28/24 History mcg (1,000 unit) capsule ipratropium 0.5 mg-albuterol 3 mg 3 ml inhalation 4X/D AY PRN sob 05/02/21 11/18/23 History (2.5 mg base)/3 mL nebulization soln liothyronine 25 mcg tablet 25 mcg PO DAILY THYROID 02/28/24 History tiotropium bromide 18 mcg capsule 18 mcg inhalation DA SARAH SOB 05/02/21 02/28/24 History with inhalation device (Spiriva with HandiHaler) vitamins A,C,H-ebnm-cxjizc 4,296 1 cap PO BID vitamin 12/13/21 02/28/24 History mcg-226 mg-90 mg capsule (PreserVision AREDS) glimepiride 2 mg tablet 2 mg PO DAILY DM #3 tabs 02/28/24 Rx empagliflozin 10 mg tablet 10 mg PO DAILY heart failur e 30 04/26/23 12/06/23 Rx (Jardiance) days #30 tabs metoprolol succinate 25 mg 25 mg PO DAILY heart 02/28/24 History tablet,extended release 24 hr ferrous sulfate 325 mg (65 mg 325 mg PO BID supplement 11/14/23 02/28/24 History iron) tablet (FeroSul) torsemide 5 mg tablet 5 mg PO DAILY water pill 02/28/24 History furosemide 40 mg tablet 40 mg PO DAILY water pill 02/28/24 History lisinopril 10 mg tablet 10 mg PO DAILY 02/28/2402/09 History pantoprazole 40 mg tablet,delayed 40 mg PO BID #60 tab s 03/02/24 Unknown Rx release sucralfate 1 gram tablet 1 g PO Q6H 90 days #360 tabs 05/01/24 Unknown Rx Allergy/AdvReac Type Severity Reaction Status Date / Time aliskiren (From Valturna) Allergy Intermediate Other Verified 06/23/24 14:33 valsartan (From Valt[place]a) Allergy Intermediate Other Verified 06/23/24 14:33 codeine AdvReac Upset Verified 06/23/24 14:33 Stomach Family History Mother CVA (cerebral vascular accident) Heart disease Myocardial infarction Hx of CABG Hypertension Father CVA (cerebral vascular accident) Heart disease Surgical History S/P cataract extraction Social History household members: none housing: house Smoking Status: Former smoker how long ago did patient quit smoking: Quit 2010, prior 1 ppd since teen. alcohol intake: former year quit: 2010 substance use type: does not use ROS ROS Narrative Admission Review of Systems: CONSTITUTIONAL: No weight loss, fever, chills, weight gain, + weakness or fatigue. HEENT: Eyes: No visual loss, blurred vision, double vision or yellow sclerae. Ears, Nose, Throat: No hearing loss, sneezing, congestion, runny nose or sore throat. SKIN: + Chronic bilateral lower extremity venous stasis skin changes, occasionalabrasion, occasional stage ecchymoses. CARDIOVASCULAR: + Chronic stable BL LE edema, not markedly pitting, chronic unchanged orthopnea. Nochest pain/pressure/tightness, palpitations, syncopal events. RESPIRATORY: + Acute on chronic shortness of breath, occasional cough with occasional increased phlegm but no marked sputum production he notes, increased wheezing. No marked sputum, no hemoptysis. GASTROINTESTINAL: No anorexia, nausea, vomiting or diarrhea, abdominal pain, melena, BRBPR. GENITOURINARY: No dysuria, frequency, urgency or retention. NEUROLOGICAL: No headache, dizziness, syncope, paralysis, ataxia, numbness or tingling in the extremities, focal weakness, change in bowel or bladder control,seizure. MUSCULOSKELETAL: + muscle, back pain, joint pain or stiffness. HEMATOLOGIC: + anemia, easy bleeding/bruising. LYMPHATICS: No enlarged nodes. No history of splenectomy. PSYCHIATRIC: No history of depression or anxiety. ENDOCRINOLOGIC: No reports of sweating, cold or heat intolerance. No polyuria orpolydipsia. ALLERGIES: No history of asthma, hives, eczema or rhinitis. Vital Signs Vital Signs Vital Signs: 06/23/24 14:28 06/23/24 14:33 06/23/24 14:33 Temperature 97.5 F L 97.6 F L Temperature Source Oral Temporal Pulse Rate 107 H 106 H Respiratory Rate 25 H 29 H Respiratory Effort Short of Breath Labored Accessory Muscle Use Respiratory Depth Shallow Respiratory Pattern Tachypnea Blood Pressure 140/72 H 138/49 H Blood Pressure Mean 94 78 Pulse Ox 97 97 Oxygen Delivery Method Nasal Cannula Nasal Cannula Nasal Cannula Oxygen Flow Rate (L/min) 2 2 2 06/23/24 14:54 06/23/24 15:33 06/23/24 15:51 Temperature 97.5 F L Temperature Source Oral Pulse Rate 100 111 H 112 H Respiratory Rate 16 29 H 20 H Respiratory Effort Respiratory Depth Respiratory Pattern Blood Pressure 124/62 H Blood Pressure Mean 82 Pulse Ox 98 Oxygen Delivery Method Nasal Cannula Oxygen Flow Rate (L/min) 2 06/23/24 16:00 06/23/24 17:00 06/23/24 17:33 Temperature 97.9 F 98 F 98 F Temperature Source Oral Oral Pulse Rate 117 H 113 H 113 H Respiratory Rate 20 H 19 H 19 H Respiratory Effort Respiratory Depth Respiratory Pattern Blood Pressure 117/70 129/49 H 129/49 H Blood Pressure Mean 85 75 75 Pulse Ox 95 96 96 Oxygen Delivery Method Nasal Cannula Nasal Cannula Oxygen Flow Rate (L/min) 2 Weight Weight: 181 lb 10.574 oz Body Mass Index (BMI) 30.2 Physical Exam Narrative Physical Examination: General: Awake, alert, oriented x 3 and cooperative, seated upright in the ED bed, fatigued, no evidence of any distress. Skin: Normal color, normal turgor, no icterus, no cyanosis, chronic bilateral lower extremity venous stasis skin changes, occasional staged ecchymoses, abrasion HEENT: AT/NC, EOMI, PERRLA, MMM, no carotid bruits, no marked JVD noted, although difficult exam given thickened neck. Lungs: Diffusely diminished, > bases, appropriate effort, no evidence of any distress, currentlymaintained on chronic 2L NC, crackles at bases, diffuse softend expiratory wheezing also present however. Heart: Regular rate with regular rhythm; no gallop, rub audible. Abdomen: Soft, obese, NTTP, distant BS, difficult to discern distention and HSM given habitus. Extremities: No cyanosis, no clubbing, chronic bilateral lower extremity ankle to distal sherwood 1+ edema, stable per patient report. Neurological: Patient awake, alert, oriented as noted, cognitive function intact; pupils equally reactive to light and accommodation, cranial nerves grossly normal, moving all 4 extremities, no focaldeficits, strength moderatelyto severely decreased secondary to acute presentation. Psychiatric: Affect appears fatigued, no acute evidence of depressive or anxietyfeelings. Results Lab / Micro Data 06/23/24 14:55 06/23/24 14:55 Labs: Laboratory Results - last 24 hr 06/23/24 14:55: WBC 5.9, RBC 2.84 L, Hgb 8.5 L, Hct 27.0 L, MCV 95.1 H, MCH 29.9, MCHC 31.5 L, RDW Std Deviation 45.3 H, RDW Coeff of John 13.2, Plt Count 101 L, MPV 10.5, Immature Gran % (Auto) 0.300, Neut % (Auto) 71.4 H, Lymph % (Auto) 17.7 L, [place] % (Auto) 6.6, Eos % (Auto) 3.5, Baso % (Auto) 0.5, Absolute Neuts (auto) 4.2, Absolute Lymphs (auto) 1.05, Nucleated RBC % 0, Sodium 142, Potassium 4.3, Chloride 103, Carbon Dioxide 25.6, Anion Gap 13, BUN 86 H, Creatinine 2.36 H, Estim Creat ClearCalc 22.61 L, Est GFR (MDRD) Non-Af 26 L, BUN/Creatinine Ratio 36.4 H, Glucose 200 H, Calcium 9.3, Troponin T High Sens 83 H*, NT pro BNP II 2233 H Micro: Microbiology 06/23/24 14:55 Mucosa - Nose SARS-CoV-2, Influenza & RSV (PCR) - Final Imaging Radiology Impression Chest X-Ray 06/23/24 15:05 IMPRESSION: No acute abnormality is seen. Reading Location: [facility] Assessment & Plan Assessment/Plan (1) Elevated troponin: (2) COPD exacerbation: PLAN: Plan The patient is an 84 y/o M w/ PMHx: Chronic anemia/AOCD/Fe deficiency anemia, CKD stage IV per GFR trending, GERD w/ Hx GI bleeding, Chronic thrombocytopenia,Obesity, Chronic COPD w/ Chronic Hypoxic Respiratory Failure (2.5L NC), HTN, HLD, Diabetes mellitus type II, HFpEF, Hx TIA, Former tobacco use, Hypothyroidism, Valvular Heart Disease, Nonobstructive CAD who presents to the [facility] ED on with history of worsening shortness of breath starting the day prior with significant wheezing and fatigue, worse with exertion turning his own oxygen supplementation up to 4 L with some improvement with no recent fevers but he does report subjective chills no worsened cough or productive sputum with no recent nausea, emesis, diarrhea, melena or hematochezia prompting eventualED evaluation to be cautious. #1. Acute on Chronic Hypoxic Respiratory Failure secondary to Acute on COPD exacerbation: Will admit to PCU given elevated cardiac enzyme and concern for possibly cardiac component as well possibly secondary to demand given his respiratory presentation concurrently, maintain on oxygen with wean as t oleratedto home oxygen supplementation, continue ATC duonebs, PRN albuterol, IV methylprednisolone and preferentially quickly transition to may be a very quick burst of therapy given significant GI bleed history, HOB, IS parameters, will obtain sputum Cx, respiratory viral panel, procalcitonin, will hold on immediately abx therapy but low threshold to add if appropriate. BNP was notablyelevated, will pulsed dose with Lasix 40 mg IV x 1 to be cautious but still uncertain if this is a component or not as well. #2. Indeterminate cardiac enzyme, uncertain significance: EKG in ED SR without acute evidence of ischemia, CXR w/ chronic changes with no acute cardiopulmonaryfindings otherwise, initial trop 83 withrepeat delta pending. Will place on a monitored bed to assure no acute myocardial infarction with se rial cardiac enzymes. Will continue to pursue enzyme trend and if significantly elevates mayconsider heparin however given significant GI bleed history preference to avoid. Holding off on aspirin therapy given significant bleed history as well and lessenzymes significantly rises. If enzyme rises notably will consult cardiology given significant history and most recent cardiac catheterization withmild to moderate disease only noted. If enzymes rise significantly we will also plan repeat echocardiogram. FLP in AM. Magnesium level requested. #3. HFpEF, possible decompensation but uncertain: BNP upon ED presentation notably elevated possibly secondary to significant underlying renal disease however, will avoid any hydration however to be cautious we will pulse dose withLasix IV x 1 as uncertain if this could still be a component, echocardiogram 12/07/2023 with EF 50 to 55%, continue statin, metoprolol, lisinopril, clarifyingif patient is on torsemide versus Lasix as both are listed, not on aspirin or antiplatelet therapy likely secondary to underlying significant GI bleed historyand anemia. Weights currently stable and does have chronic orthopnea that is unchanged. Will place neck rich wraps. Pending response low threshold to continue with IV Lasix regimen if necessary but still uncertain if this is decompensated. #4. Nonobstructive CAD: Most recent cardiac catheterization mid 03/15/22 with mild to moderate disease with medical management decision at that time, not on antiplatelet therapy secondary to significant GI bleed history, continue statin,metoprolol, lisinopril home regimen. Continue evaluation as noted. #5. Valvular heart disease: Most recent echocardiogram noted 12/07/2023 with EF 50 to 55%, mild to moderate mitral annular calcification, trivial MVI, Tri sinus/trileaflet aortic valve with trivial aortic valve insufficiency. #6. Chronic Kidney Disease Stage IV per GFR trending although has vacillated: Admission BUN/Cr 86/2.36, GFR 26, baseline renal function primarily 2.5-3.0, most recently previous 05/28/2024 creatinine 3.09 at that time, repeat BMP in AM. #7. Chronic macrocytic anemia, anemia of chronic disease, iron deficiency anemia: Admission hemoglobin 8.5, MCV 95.1, baseline hemoglobin primarily 7-9 range, stable, continue to trend, following with hematology outpatient, most recent visit 05/28/2024, encouraged continued IV iron supplementation per the direction outpatient. Continue oral iron supplementation. #8. Chronic thrombocytopenia: Admission platelet 101, baseline primarily 90-1 30 range, stable, continue to trend. #9. 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 pylori negative, 04/02/2023 EGD with capsule endoscopy with short segments of inflammation seen with no active bleeding concerns or significant findings,repeat EGD 12/31/2023 during admission with normal esophagus, oozing gastric ulcer which was biopsied, normal second portion of the duodenum, eventual follow-up most recent EGD 03/01/2024 with normalesophagus, chronic gastritis with hemorrhage treated with a heater probe, oozing duodenal ulcers with pigmented material treated with a heater probe. Encourage strongly continued routine follow-up outpatient with gastroenterology as previously arranged. Continue PPI and sucralfate regimen. #10. Diabetes mellitus type II: Hold oral home regimen, hemoglobin A1c requested, ADA diet, accu checks w/ ISS. #11. Hypertension: Continue home regimen including torsemide, metoprolol, lisinopril home regimen, clarifying is also listed on Lasix as well, PRN hydralazine. #12. Hyperlipidemia: Continue home statin regimen. AM FLP. #13. Hypothyroidism: Continue patient home liothyronine regimen. #14. History of TIA: Not on antiplatelet therapy possibly secondary to significant GI bleed history, clarified to be certain, continue statin, hypertensive regimen, temporally holding diabetic regimen as noted. #15. Obesity: Weight loss and lifestyle changes encouraged. #16. DVT prophylaxis: SCDs. #17. CODE status: Patient RUSTY is his daughter and living will is currently inplace. Discussed CODE status at length including difference between FULL code, DNR-CCA and DNR-CC status. Following discussions about the differences in these status, requested DNR-CCA, no intubation status which was confirmed with examples. Advanced Care Planning Face to Face Time: 16 minutes. Charges/Coding Visit Charges Inpatient E&M: 25219 Init Hosp L3 Procedures Hospitalists Procedures: 35399 Advncd Care Plan 30 Min 06/23/24 5089 Cosigner Signature (if applicable): CC: Dr. Tracy Angel MD; Dr. Yuridia Hernandez MD~ Signed [facility]04-14-2025 Radiology Diagnostic study note [facility] Imaging Services [address] [place] [address] Chest 1 View (Portable) MR#: [id number] Acct: [id number] Name: BEULAH BRIGHT Rep #: [id number] : 1940 M 84 From: Jomar La MD PCP: Dr. Yuridia Hernandez MD Status: PRE E R Study:Chest 1 View (Portable) Date of Exam: 06/23/24 Exam# [id number] Ordering Dr: Delia Thompson PROCEDURE: CHEST 1 VIEW (PORTABLE) 06/23/2024 REASON FOR EXAM: DYSPNEA TECHNIQUE: Frontal view of the chest. COMPARISON: None FINDINGS: Hardware: EKG electrodes are seen. Heart: The heart size is normal. Atherosclerotic calcification of the aortic arch. Lungs: The lungs are clear. Bones: Degenerative changes are identified within the thoracic spine. Other: RAD/Chest 1 View (Portable) IMPRESSION: No acute abnormality is seen. Reading Location: [place] [address] CC: Dr. 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: Signed [facility]03-19-2025 Evaluation note* Diagnosis Onset Date Resolution Status Admit Date Anemia chronic May 28 3:01pm Iron deficiency chronic May 3:01pm COPD exacerbation resolved June 102024 5:35pm Elevated troponin resolved June 102024 5:35pm Chronic anemia inactive June 5:35pm Chronic kidney disease inactive 2024 5:35pm History of gastric ulcer acute July 14, 2024 2:20pm [facility] Work Phone: 1(728) 826-774412-22-2024 [facility]12-19-2024 Evaluation note* Diagnosis Onset Date Resolution Status Admit Date Weakness resolved February 28, 2024 5:39pm Acute dyspnea inactive February 272023 5:39pm Anemia inactive February 28, 2024 5:39pm History of GI bleed acute Jan2024 7:42am Anemia chronic March 17, 7:42am Anemia chronic March 24, 2024 3:23pm Anemia chronic April 02, 2024 3:54pm Iron deficiency chronic March 132024 3:54pm Anemia chronic May 28 3:01pm Iron deficiency chronic May 3:01pm Elevated troponin acute June 102024 5:35pm Chronic anemia chronic June 5:35pm Chronic kidney disease chronic Ap ril 2024 5:35pm COPD exacerbation chronic June 102024 5:35pm [facility] Work Phone: 1(180) 675-277311-25-2024 [facility]10-18-2024 [facility]09-30-2024 [facility] 11-20-2023 [facility]09-06-2024 [facility]04-17-2024 Discharge summary Author Dalton Forrest [facility] June 27, 2023 2:49pm Note Date/Time June 27, 2023 1:2 6pm [facility] Medical Records Department [address] [place] [address] Emergency Department Summary 06/27/23 MR#: [id number] Acct: [id number] Name: BEULAH BRIGHT Rep #:[id number] : 1940 83 From: Dalton Forrest MD PCP: Dr. Talya Nichols, DO Status:REG ER Location: ED HPI History of Present Illness Chief Complaint: Shortness of Breath Narrative Narrative: 83-year-old male past medical history of previous GI bleed, COPD on oxygen 2 L at home presents via EMS with increasing shortness of breath, and weakness. He states he is concerned because previously, he felt weak and was found to have a low hemoglobin. He was transfused a unit and then released from the hospital, and 5 days later he reports that he had a return and received 2 more units. He states that gastroenterology, Dr. Joy, has cauterized his ulcers twice. He is concerned that he is has bleeding ulcers again although he denies any black stool. This is because he went to get up from the couch, and felt lightheaded and weak and fell backwards onto the couch. He did not injure himself, did not pass out, blood is unsure why he has had generalized weakness. He denies any chest pain, and may have increased shortness of breath over his baseline. [facility] Medical History Acute and chronic respiratory failure with hypoxia Aortic valve stenosis, acquired Atherosclerotic heart disease of [place] coronary artery without angina pectoris CAD (coronary artery disease) Cardiology follow-up encounter Chronic respiratory failure with hypoxia COPD (chronic obstructive pulmonary disease) Diabetes Diabetes mellitus, type 2 Diastolic CHF Former smoker Former tobacco use High cholesterol History of CAD (coronary artery disease) History of echocardiogram History of GI bleed History of left heart catheterization (LHC) (~03/15/22) HLD (hyperlipidemia) HTN (hypertension) Hypertension Hypothyroidism Kidney disease Loss of hearing Low iron Mild left ventricular hypertrophy Myocardial infarct No natural teeth Nonrheumatic aortic (valve) stenosis Obesity On home oxygen therapy Polyarthralgia Poor historian Shortness of breath on exertion Symptomatic anemia Syncope Thyroid disease TIA (transient ischemic attack) Wears glasses Home Medications atorvastatin 80 mg tablet 80 mg PO DAILY CHOLESTEROL 05/02/21 [History Last Taken 02/14/23] cholecalciferol (vitamin D3) 25 mcg (1,000 unit) capsule 25 mcg PO DAILY esdmhyn48/21/22 [History Last Taken 02/15/23] ipratropium 0.5 mg-albuterol 3 mg (2.5 mg base)/3 mL nebulization soln 3 ml inhalation 4X/DAY PRN sob 05/02/21 [History Last Taken 02/15/23] liothyronine 25 mcg tablet 25 mcg PO DAILY THYROID 05/02/21 [History Last Taken 02/15/23] omega-3 fatty acids-vitamin E 1,000 mg capsule 2 cap PO BID SUPPLEMENT 05/02/21 [History Last Taken 02/15/23] tiotropium bromide 18 mcg capsule with inhalation device (Spiriva with HandiHaler) 18 mcg inhalation DAILY SOB 05/02/21 [History Last Taken 02/15/23] vitamins A,C,R-vnsm-kmdwan 4,296 mcg-226 mg-90 mg capsule (PreserVision AREDS) 1cap PO BID vitamin 12/13/21 [History Last Taken 02/15/23] glimepiride 2 mg tablet 2 mg PO DAILY DM #3 tabs 03/09/23 [Rx Last Taken 02/15/23] sucralfate 1 gram tablet (Carafate) 1 g PO BID 30 days #60 tabs 03/23/23 [Rx Last Taken Unknown] empagliflozin 10 mg tablet (Jardiance) 10 mg PO DAILY 30 days #30 tabs 04/26/23 [Rx Last Taken Unknown] lisinopril 10 mg tablet 10 mg PO DAILY 06/27/23 [History Last Taken Unknown] metoprolol succinate 25 mg tablet,extended release 24 hr 25 mg PO DAILY 06/27/23[History Last Taken Unknown] pantoprazole 40 mg tablet,delayed release (Protonix) 40 mg PO DAILY 06/27/23 [History Last Taken Unknown] sucralfate 1 gram tablet 1 g PO BID 06/27/23 [History Last Taken Unknown] torsemide 10 mg tablet 10 mg PO DAILY 06/27/23 [History Last Taken Unknown] vitamins A,C,M-xdvw-xaiqnb 4,296 mcg-226 mg-90 mg capsule (PreserVision AREDS) 1cap PO BID 06/27/23 [History Last Taken Unknown] Allergy/AdvReac Type Severity Reaction Status Date / Time aliskiren [From Valturna] Allergy Intermediate Other Verified 06/27/23 13:12 valsartan [From Valturna] Allergy Intermediate Other Verified 06/27/23 13:12 codeine AdvReac Upset Verified 06/27/23 13:12 Stomach Family History Mother CVA (cerebral vascular accident) Heart disease Myocardial infarction Hx of CABG Hypertension Father CVA (cerebral vascular accident) Heart disease Surgical History S/P cataract extraction Social History household members: none housing: house Smoking Status: Former smoker how long ago did patient quit smoking: Quit 2011, prior 1 ppd since teen. alcohol intake: former year quit: 2010 substance use type: does not use ROS ROS ED ROS Narrative Constitutional: No fever, no chills. HEENT: No sore throat. No neck pain. No loss of vision. No rhinorrhea. Cardiovascular: No chest pain. No palpitations. No pedal edema. Respiratory: No cough, positive shortness of breath. Abdominal: No abdominal pain. No nausea. No vomiting. No melena, no hematochezia. Genitourinary: No dysuria. No hematuria. Musculoskeletal: No myalgias. No arthralgias. Neurologic: No headaches. No dizziness. Positive lightheadedness. Generalizedweakness, causing him to fall backwards because could not stand. Skin: No rash. No change in color. Psychiatric: No depression. No anxiety. EXAM Physical Exam Narrative Exam Narrative: Afebrile. Vital signs noted. HEENT: Normocephalic. Atraumatic. PERRL, EOMI. Neck soft and supple. No pointtenderness or step off. No subconjunctival pallor. Cardiovascular: Regular rate and rhythm. No murmurs, rubs, or gallops appreciated. Respiratory: No tachypnea. Lungs clear to auscultation bilaterally. Decreased breath sounds bilateral bases. Gastrointestinal: Abdomen soft, nontender, with normoactive bowel sounds. No rebound or guarding. Neurological: Awake. Alert. Nonfocal, nonlateralizing. Skin: No rash. Normal color. No pallor. Musculoskeletal: No pedal edema. Full range of motion extremities. Const Vital Signs: 06/27/23 13:07 06/27/23 13:13 06/27/23 13:14 Temperature 97.5 F L Temperature Source Temporal Pulse Rate 86 85 Respiratory Rate 18 24 H Respiratory Effort Short of Breath Labored Respiratory Depth Shallow Respiratory Pattern Tachypnea Blood Pressure 136/58 H 112/90 H Blood Pressure Mean 84 97 Pulse Ox 96 98 Oxygen Delivery Method Nasal Cannula Nasal Cannula Nasal Cannula Oxygen Flow Rate (L/min) 3 3 3 06/27/23 14:09 06/27/23 14:11 Temperature 97.5 F L Temperature Source Temporal Pulse Rate 78 83 Respiratory Rate 10 L 24 H Respiratory Effort Respiratory Depth Respiratory Pattern Blood Pressure 104/61 112/72 Blood Pressure Mean 75 85 Pulse Ox 99 98 Oxygen Delivery Method Nasal Cannula Nasal Cannula Oxygen Flow Rate (L/min) 3 3 MDM MDM MDM Narrative Medical decision making narrative: Comprehensive workup was pursued. In the differential diagnosis of anemia causing weakness versus infectious process such as pneumonia or UTI. EKG was obtained and interpreted by myself independently as normal sinus rhythm with sinus arrhythmia at 79 bpm without ectopy otherwise, no acute ST changes. No STEMI. I reviewed his laboratory work and he has normal white count of 4.8, hemoglobin stable at 8.5, around his baseline, platelet count low at 88. He relates history of chronic thrombocytopenia. I do not feel he requires transfusion emergently. Sodium is normal at 142, potassium 4.0, chloride 107, BUN is elevated at 64 with a creatinine of 2.43, but he has a history of chronicrenal insufficiency. Glucose is elevated at 257 but anion gap is normal at 5 soI have low suspicion for diabetic ketoacidosis. High-sensitivity troponin is 31. He has had ongoing shortness of breath over the last day, greater than 6 hours. I do not feel he requires serial enzymes. Urinalysis is negative for infection with 0 WBCs and 0 bacteria, so I do not feel antibiotics are indicated. Chest x-ray interpreted by myself independently shows no evidence ofpneumothorax or pneumonia. I reviewed the radiology report which confirms my independent interpretation. At this point in time, I do not have a reason for his near syncope and generalized weakness. I did offer him admission for placement in rehabilitation, but he declined. Additionally, attempt was made to ambulate thepatient. He was able to sit up slowly, and did not feel dizzy. Once again, he was concerned that his blood level was low because he needed a pint when he felt this way previously. I reassured him that his hemoglobin is at baseline and that he does not need emergent transfer of packed red blood cells. I feel he can be discharged to follow-up with his primary care provider. Return instructions to the emergency department were reviewed. Patient agreeable to the plan. Disposition is discharged home in stable condition. History & Record Review Discussion w/independent historian: Patient Lab Data Attestation: I reviewed the patient's lab results. Labs: Laboratory Results - last 24 hr 06/27/23 06/27/23 13:10 13:46 WBC 4.8 RBC 3.05 L Hgb 8.5 L Hct 27.5 L MCV 90.2 MCH 27.9 MCHC 30.9 L RDW Std Deviation 47.0 H RDW Coeff of John 14.3 Plt Count 88 L MPV 11.4 Immature Gran % (Auto) 0.200 Neut % (Auto) 62.3 Lymph % (Auto) 23.7 [place] % (Auto) 9.6 Eos % (Auto) 3.8 Baso % (Auto) 0.4 Absolute Neuts (auto) 3.0 Absolute Lymphs (auto) 1.13 Nucleated RBC % 0 Platelet Estimate SLT DEC Sodium 142 Potassium 4.0 Chloride 107 Carbon Dioxide 30.0 Anion Gap 5 BUN 64 H Creatinine 2.43 H Est GFR (MDRD) Af Amer 33 L Est GFR (MDRD) Non-Af 27 L BUN/Creatinine Ratio 26.3 H Glucose 257 H Calcium 9.2 Total Bilirubin 0.70 AST 23 ALT 37 Alkaline Phosphatase 73 Troponin I High Sens 31 Total Protein 6.7 Albumin 3.0 L Globulin 3.7 Albumin/Globulin Ratio 0.8 L Urine Color Yellow Urine Clarity Clear Urine pH 5.0 Ur Specific [place] 1.015 Urine Protein 30 H Urine Glucose (UA) 1000 H Urine Ketones Negative Urine Occult Blood Negative Urine Nitrite Negative Urine Bilirubin Negative Urine Urobilinogen Normal Ur Leukocyte Esterase Negative Urine RBC 0 SEEN Urine WBC 0 SEEN Ur Squamous Epith Cells 0-5 SEEN Urine Bacteria 0 SEEN Urine Mucus RARE Radiography Diagnostic Testing: Clinical Impression(s) from Imaging Studies Chest X-Ray 06/27/23 13:21 IMPRESSION: No radiographic evidence of acute cardiopulmonary disease. Electronically Signed: Jay Dowd MD at 13:55 EDT , Discharge Plan Triage Chief Complaint: Shortness of Breath ED Provider: Dalton Forrest Dx/Rx/DC Orders Clinical Impression: Generalized weakness, Renal insufficiency, COPD (chronic obstructive pulmonary disease), Near syncope Instructions: ED Dyspnea, ED Near-Fainting, Uncertain Cause, ED Weakness (Uncertain Cause) Prescriptions: No Action atorvastatin 80 mg tablet 80 mg PO DAILY ipratropium-albuterol 0.5 mg-3 mg(2.5 mg base)/3 mL solution for nebulization 3 ml inhalation 4X/DAY PRN (Reason: sob) Patient Comments: inhale contents of 1 vial ( 3 milliliters ) in nebulizer by mouth... (REFER TO PRESCRIPTION NOTES). liothyronine 25 mcg tablet 25 mcg PO DAILY Patient Comments: TAKE 1 TABLET BY MOUTH ONCE DAILY FOR 90 DAYS tiotropium bromide [Spiriva with HandiHaler] 18 mcg capsule, w/inhalation device 18 mcg INHALATION DAILY Patient Comments: INHALE THE CONTENTS OF 1 CAPSULE TWICE EACH TIME VIA HANDIHALER ONCE DAILY cholecalciferol (vitamin D3) 25 mcg (1,000 unit) Capsule 25 mcg PO DAILY omega-3 fatty acids-vitamin E 1,000 mg Capsule 2 cap PO BID PreserVision AREDS [id number] cere-ht-kufz Capsule 1 cap PO BID Jardiance 10 mg Tablet 10 mg PO DAILY 30 Days Qty: 30 0RF glimepiride 2 mg tablet 2 mg PO DAILY Qty: 3 0RF Hold Instructions: Resume on 05/04/23. Patient Comments: take 1 tablet by mouth once daily WITH FIRST MEAL OF THE DAY Rx Instructions: Hold if glucose less than 130 mg/dl torsemide 10 mg tablet 10 mg PO DAILY PreserVision AREDS 4,296 mcg-226 mg-90 mg capsule 1 cap PO BID lisinopril 10 mg tablet 10 mg PO DAILY sucralfate 1 gram tablet 1 g PO BID pantoprazole [Protonix] 40 mg tablet,delayed release (DR/EC) 40 mg PO DAILY metoprolol succinate 25 mg tablet extended release 24 hr 25 mg PO DAILY sucralfate [Carafate] 1 gram tablet 1 g PO BID 30 Days Qty: 60 2RF Rx Instructions: Start BID administration after TID administration for 30 days has been completed. Primary Care Provider: Talya Nichols Referrals: Talya Nichols DO [Primary Care Provider] - 3-5 Days if not improving Disposition Disposition: Home, Self Care What to do if you have Problems For any increased pain, shortness of breath, bleeding, nausea or vomiting, chestpain, or any unexpected problems, contact your Primary Care Provider. Call [facility] ([phone]) or report to the closest Emergency Room. Call 911 if necessary. 06/27/23 1449 <Electronically signed by Dalton Forrest MD> Cosigner Signature (if applicable): CC: Dr. Talya Nichols DO ~ Signed [facility] Work Phone: 1(330) 336-368804-01-2024 Hospital Discharge instructions Patient Education 06/11/2023 12:25:18 Heart Failure Action Plan Heart Failure Action Plan A heart failure action plan helps you understand what to do when you have symptoms of heart failure. Follow the plan that was created by you and your health care provider. Review your plan each time you visit your health care provider. Red zone These signs and symptoms mean you should get medical help right away: You have trouble breathing when resting. You have a dry cough that is getting worse. You have swelling or pain in your legs or abdomen that is getting worse. You suddenly gain more than 2 3 lb (0.9 1.4 kg) in a day, or more than 5 lb (2.3 kg) in one week. This amount may be more or less depending on your condition. You have trouble staying awake or you feel confused. You have chest pain. You do not have an appetite. You pass out. If you experience any of these symptoms: Call your local emergency services (911 in the [place] right away or seek help at the emergency department of the nearest hospital. Yellow zone These signs and symptoms mean your condition may be getting worse and you should make some changes: You have trouble breathing when you are active or you need to sleep with extra pillows. You have swelling in your legs or abdomen. You gain 2 3 lb (0.9 1.4 kg) in one day, or 5 lb (2.3 kg) in one week. This amount may be more or less depending on your condition. You get tired easily. You have trouble sleeping. You have a dry cough. If you experience any of these symptoms: Contact your health care provider within the next day. Your health care provider may adjust your medicines. Green zone These signs mean you are doing well and can continue what you are doing: You do not have shortness of breath. You have very little swelling or no new swelling. Your weight is stable (no gain or loss). You have a normal activity level. You do not have chest pain or any other new symptoms. Follow these instructions at home: Take fxvl-ewn-mmgkgpe and prescription medicines only as told by your health care provider. Weigh yourself daily. Your target weight is lb ( kg). ?Call your health care provider if you gain more than lb ( kg) in a day, or more than lb ( kg) in one week. Eat a heart-healthy diet. Work with a diet and presales senior specialist (dietitian) to create an eatingplan that is best for you. Keep all follow-up visits as told by your health care provider. This is important. Where to find more information [place] [employer]: www.heart.org Summary Follow the action plan that was created by you and your health care provider. Get help right away if you have any symptoms in the Red zone. This information is not intended to replace advice given to you by your health care provider. Make sure you discuss any questions you have with your health care provider. Document Released: 04/07/2017 Document Revised: 02/08/2018 Document Reviewed: 04/07/2017 [employer] Patient Education 2020 [employer]. 06/11/2023 12:25:15 Heart Failure, Self Care, Ypjz-iq-Xtfa Heart Failure, Self Care Heart failure is a serious condition. This sheet explains things you need to do to take care of yourself at home. To help you stay as healthy as possible, you may be asked to change your diet, take certain medicines, and make other changes in your life. Your doctor may also give you more specific instructions. If you have problems or questions, call your doctor. What are the risks? Having heart failure makes it more likely for you to have some problems. These problems can get worse if you do not take good care of yourself. Problems may include: Blood clotting problems. This may cause a stroke. Damage to the kidneys, liver, or lungs. Abnormal heart rhythms. Supplies needed: Scale for weighing yourself. Blood pressure monitor. Notebook. Medicines. How to care for yourself when you have heart failure Medicines Take vszy-yke-ylddwus and prescription medicines only as told by your doctor. Take your medicines every day. Do not stop taking your medicine unless your doctor tells you to do so. Do not skip any medicines. Get your prescriptions refilled before you run out of medicine. This is important. Eating and drinking Eat heart-healthy foods. Talk with a diet specialist (dietitian) to create an eating plan. Choose foods that: ?Have no trans fat. ?Are low in saturated fat and cholesterol. Choose healthy foods, such as: ?Fresh or frozen fruits and vegetables. ?Fish. ?Low-fat (lean) meats. ?Legumes, such as beans, peas, and lentils. ?Fat-free or low-fat dairy products. ?Whole-grain foods. ?High-fiber foods. Limit salt (sodium) if told by your doctor. Ask your diet specialist to tell you which seasonings are healthy for your heart. Cook in healthy ways instead of frying. Healthy ways of cooking include roasting, grilling, broiling, baking, poaching, steaming, and stir-frying. Limit how much fluid you drink, if told by your doctor. Alcohol use Do not drink alcohol if: ?Your doctor tells you not to drink. ?Your heart was damaged by alcohol, or you have very bad heart failure. ?You are , may be , or are planning to become . If you drink alcohol: ?Limit how much you use to: ?0 1 drink a day for women. ?0 2 drinks a day for men. ?Be aware of how much alcohol is in your drink. In the [place] one drink equals one 12 oz bottle of beer (355 mL), one 5 oz glass of wine (148 mL), or one 1 oz glass of hard liquor (44 mL). Lifestyle Do not use any products that contain nicotine or tobacco, such as cigarettes, e- cigarettes, and chewing tobacco. If you need help quitting, ask your doctor. ?Do not use nicotine gum or patches before talking to your doctor. Do not use illegal drugs. Lose weight if told by your doctor. Do physical activity if told by your doctor. Talk to your doctor before you begin an exercise if: ?You are an older adult. ?You have very bad heart failure. Learn to manage stress. If you need help, ask your doctor. Get rehab (rehabilitation) to help you stay independent and to help with your quality of life. Plan time to rest when you get tired. Check weight and blood pressure Weigh yourself every day. This will help you to know if fluid is building up in your body. ?Weigh yourself every morning after you pee (urinate) and before you eat breakfast. ?Wear the same amount of clothing each time. ?Write down your daily weight. Give your record to your doctor. Check and write down your blood pressure as told by your doctor. Check your pulse as told by your doctor. Dealing with very hot and very cold weather If it is very hot: ?Avoid activities that take a lot of energy. ?Use air conditioning or fans, or find a cooler place. ?Avoid caffeine and alcohol. ?Wear clothing that is loose-fitting, lightweight, and light-colored. If it is very cold: ?Avoid activities that take a lot of energy. ?Layer your clothes. ?Wear mittens or gloves, a hat, and a scarf when you go outside. ?Avoid alcohol. Follow these instructions at home: Stay up to date with shots (vaccines). Get pneumococcal and flu (influenza) shots. Keep all follow-up visits as told by your doctor. This is important. Contact a doctor if: You gain weight quickly. You have increasing shortness of breath. You cannot do your normal activities. You get tired easily. You cough a lot. You don't feel like eating or feel like you may vomit (nauseous). You become puffy (swell) in your hands, feet, ankles, or belly (abdomen). You cannot sleep well because it is hard to breathe. You feel like your heart is beating fast (palpitations). You get dizzy when you stand up. Get help right away if: You have trouble breathing. You or someone else notices a change in your behavior, such as having trouble staying awake. You have chest pain or discomfort. You pass out (faint). These symptoms may be an emergency. Do not wait to see if the symptoms will go away. Get medical help right away. Call your local emergency services (911 in the [place] Do not drive yourself to the hospital. Summary Heart failure is a serious condition. To care for yourself, you may have to change your diet, take medicines, and make other lifestyle changes. Take your medicines every day. Do not stop taking them unless your doctor tells you to do so. Eat heart-healthy foods, such as fresh or frozen fruits and vegetables, fish, lean meats, legumes, fat-free or low-fat dairy products, and whole-grain or high-fiber foods. Ask your doctor if you can drink alcohol. You may have to stop alcohol use if you have very bad heart failure. Contact your doctor if you gain weight quickly or feel that your heart is beating too fast. Get help right away if you pass out, or have chest pain or trouble breathing. This information is not intended to replace advice given to you by your health care provider. Make sure you discuss any questions you have with your health care provider. Document Released: 06/11/2019 Document Revised: 06/10/2019 Document Reviewed: 06/11/2019 [employer] Patient Education 2020 [employer]. 06/11/2023 12:25:09 Heart Failure Eating Plan Heart Failure Eating Plan Heart failure, also called congestive heart failure, occurs when your heart does not pump blood well enough to meet your body's needs for oxygen-rich blood. Heart failure is a long-term (chronic) condition. Living with heart failure can be challenging. However, following your health care provider'sinstructions about a healthy lifestyle and working with a diet and presales senior specialist (dietitian) to choose the right foods may help to improve your symptoms. What are tips for following this plan? Reading food labels Check food labels for the amount of sodium per serving. Choose foods that have less than 140 mg (milligrams) of sodium in each serving. Check food labels for the number of calories per serving. This is important if you need to limit your daily calorie intake to lose weight. Check food labels for the serving size. If you eat more than one serving, you will be eating more sodium and calories than what is listed on the label. Look for foods that are labeled as sodium-free, very low sodium, or low sodium. ?Foods labeled as reduced sodium or lightly salted may still have more sodium than what is recommended for you. Cooking Avoid adding salt when cooking. Ask your health care provider or dietitian before using salt substitutes. Season food with salt-free seasonings, spices, or herbs. Check the label of seasoning mixes to makesure they do not contain salt. Cook with heart-healthy oils, such as olive, canola, soybean, or sunflower oil. Do not saldivar foods. Cook foods using low-fat methods, such as baking, boiling, grilling, and broiling. Limit unhealthy fats when cooking by: ?Removing the skin from poultry, such as chicken. ?Removing all visible fats from meats. ?Skimming the fat off from stews, soups, and gravies before serving them. Meal planning Limit your intake of: ?Processed, canned, or pre-packaged foods. ?Foods that are high in trans fat, such as fried foods. ?Sweets, desserts, sugary drinks, and other foods with added sugar. ?Full-fat dairy products, such as whole milk. Eat a balanced diet that includes: ?4 5 servings of fruit each day and 4 5 servings of vegetables each day. At each meal, try to fill half of your plate with fruits and vegetables. ?Up to 6 8 servings of whole grains each day. ?Up to 2 servings of lean meat, poultry, or fish each day. One serving of meat is equal to 3 oz. This is about the same size as a deck of cards. ?2 servings of low-fat dairy each day. ?Heart-healthy fats. Healthy fats called omega-3 fatty acids are found in foods such as flaxseed and cold-water fish like sardines, salmon, and mackerel. Aim to eat 25 35 g (grams) of fiber a day. Foods that are high in fiber include apples, broccoli, carrots, beans, peas, and whole grains. Do not add salt or condiments that contain salt (such as soy sauce) to foods before eating. When eating at a restaurant, ask that your food be prepared with less salt or no salt, if possible. Try to eat 2 or more vegetarian meals each week. Eat more home-cooked food and eat less restaurant, buffet, and fast food. General information Do not eat more than 2,300 mg of salt (sodium) a day. The amount of sodium that is recommended for you may be lower, depending on your condition. Maintain a healthy body weight as directed. Ask your health care provider what a healthy weight is for you. ?Check your weight every day. ?Work with your health care provider and dietitian to make a plan that is right for you to lose weight or maintain your current weight. Limit how much fluid you drink. Ask your health care provider or dietitian how much fluid you can have each day. Limit or avoid alcohol as told by your health care provider or dietitian. Recommended foods The items listed may not be a complete list. Talk with your dietitian about what dietary choices are best for you. Fruits All fresh, frozen, and canned fruits. Dried fruits, such as raisins, prunes, and cranberries. Vegetables All fresh vegetables. Vegetables that are frozen without sauce or added salt. Low-sodium or sodium-free canned vegetables. Grains Bread with less than 80 mg of sodium per slice. Whole-wheat pasta, quinoa, and brown rice. Oats andoatmeal. Barley. Millet. Grits and cream of wheat. Whole- grain and whole-wheat cold cereal. Meats and other protein foods Lean cuts of meat. Skinless chicken and turkey. Fish with high omega-3 fatty acids, such as salmon,sardines, and other cold-water fishes. Eggs. Dried beans, peas, and edamame. Unsalted nuts and nut butters. Dairy Low-fat or nonfat (skim) milk and dried milk. Rice milk, soy milk, and almond milk. Low-fat or nonfat yogurt. Small amounts of reduced-sodium block cheese. Low-sodium cottage cheese. Fats and oils [place], canola, soybean, flaxseed, or sunflower oil. Avocado. Sweets and desserts Apple sauce. Granola bars. Sugar-free pudding and gelatin. Frozen fruit bars. Seasoning and other foods Fresh and dried herbs. Lemon or [place] juice. Vinegar. Low-sodium ketchup. Salt- free marinades, saladdressings, sauces, and seasonings. The items listed above may not be a complete list of foods and beverages you can eat. Contact a dietitian for more information. Foods to avoid The items listed may not be a complete list. Talk with your dietitian about what dietary choices are best for you. Fruits Fruits that are dried with sodium-containing preservatives. Vegetables Canned vegetables. Frozen vegetables with sauce or seasonings. Creamed vegetables. Italian fries. Onion rings. Pickled vegetables and sauerkraut. Grains Bread with more than 80 mg of sodium per slice. Hot or cold cereal with more than 140 mg sodium perserving. Salted pretzels and crackers. Pre-packaged breadcrumbs. Bagels, croissants, and biscuits. Meats and other protein foods Ribs and chicken wings. Mejias, ham, pepperoni, bologna, salami, and packaged luncheon meats. Hot dogs, bratwurst, and sausage. Canned meat. Smoked meat and fish. Salted nuts and seeds. Dairy Whole milk, sogp-uha-fckd, and cream. Buttermilk. Processed cheese, cheese spreads, and cheese curds. Regular cottage cheese. Feta cheese. Shredded cheese. String cheese. Fats and oils Butter, lard, shortening, ghee, and mejias fat. Canned and packaged gravies. Seasoning and other foods Onion salt, garlic salt, table salt, and sea salt. Marinades. Regular salad dressings. Relishes, pickles, and olives. Meat flavorings and tenderizers, and bouillon cubes. Horseradish, ketchup, and mustard. Worcestershire sauce. Teriyaki sauce, soy sauce (including reduced sodium). Hot sauce and Tabasco sauce. Steak sauce, fish sauce, oyster sauce, and cocktail sauce. Taco seasonings. Barbecue sauce. Tartar sauce. The items listed above may not be a complete list of foods and beverages you should avoid. Contact a dietitian for more information. Summary A heart failure eating plan includes changes that limit your intake of sodium and unhealthy fat, and it may help you lose weight or maintain a healthy weight. Your health care provider may also recommend limiting how much fluid you drink. Most people with heart failure should eat no more than 2,300 mg of salt (sodium) a day. The amount of sodium that is recommended for you may be lower, depending on your condition. Contact your health care provider or dietitian before making any major changes to your diet. This information is not intended to replace advice given to you by your health care provider. Make sure you discuss any questions you have with your health care provider. Document Released: 07/13/2017 Document Revised: 04/24/2019 Document Reviewed: 07/13/2017 [employer] Patient Education 2020 [employer] Follow Up Care 06/08/2023 19:34:17 With:TALYA NICHOLS DO Address: [address] [place] [address] [place] [address]- [phone] When: only if needed Comments:Please call the office to schedule a follow-up appointment. With:ROJAS AVILA MD Address: [address] [place] [address] [address] [place] [address]- [phone] When:Within 2 Week(s) Comments:Call office within 2 weeks for appointment With:NAMRATA ESPNIO MD Address: [address] [place] [address] [facility] [place] [address]- When:Within 2 Week(s) Comments:Please call office within 2 weeks for appointment [facility] 04-01-2024 Note Discharge Instructions Thank you for allowing [facility] to assist you with your healthcare needs. The following is importantdischarge information regarding your hospital visit. Your Care Team TALYA NICHOLS DO Your Diagnosis Anemia CHF (congestive heart failure) COPD with acute exacerbation COPD without exacerbation History of peptic ulcer Hyperlipidemia Hypothyroidism, Hypothyroidism Shortness of breath What to do next Instructions From Your Doctor The following was transcribed using voice recognition software, please feel free to contact your care team to clarify any misunderstandings. You were admitted for shortness of breath. Your shortness of breath appears to be due to multiple causes a mild congestive heart failure exacerbation, possibly a COPD flare and anemia. You were transfused blood seen by a [facility] and started on IV diuretics (water pills). Please follow-up with your primary care doctor, we will have you follow-up with a [facility] hospice for your aortic stenosis (narrow heart valve). Please follow-up with your established footwear sales leader. If you do not have an established footwear sales leader I will provide you with information for a footwear sales leader. Again please contact your primary care doctor soon as possible. Please seek medical assistance if your symptoms recur or worsen. Take care Follow Up Appointments Follow Up with TALYA NICHOLS DO When Only if needed Why: Please call the office to schedule a follow-up appointment. Where: [address] [facility] [place] [address]- [phone] Follow Up with ROJAS AVILA MD When In 2 weeks Why: Call office within 2 weeks for appointment Where: [address] [facility] [address] [place] [address]- [phone] Follow Up with NAMRATA ESPINO MD When In 2 weeks Why: Please call office within 2 weeks for appointment Where: [address] [facility] [place] [address]- The Following Activity and Diet Have Been Ordered for You Discharge Activity - Ordered -- Resume your pre-hospitalization activity, 06/11/23 12:21:00 EDT Discharge Diet - Ordered -- Type of Diet: Regular, Sodium limit: 2 gm, 06/11/23 12:21:00 EDT The Following Equipment Has Been Ordered for You No qualifying data available. The Following Treatments Have Been Ordered for You Discharge Labs No qualifying data available. Discharge Radiology No qualifying data available. Other Therapies No qualifying data available. Post Acute Orders No qualifying data available. Someone Will Contact You Regarding These Home Health Referrals No home referrals have been ordered for you. No one will call you. Allergies Valturna (Numbness of hand, Numbness of finger, Numbness) codeine (Stomach problem, Nausea) Medications Please ask your primary doctor or pharmacist before taking any other medication not listed, including over the counter drugs, herbal medications, vitamins and or supplements as they may interact withyour home medications. What How Much When Why Instructions Last Dose New metoprolol (Toprol-XL 25 mg oral tablet, extendedrelease) 1 tab(s) by mouth Once a day with a meal Pickup at [facility] Changed albuterol-ipratropium (albuterol-ipratropium 2.5 mg-0.5 mg/ 3 mL inhalation solution) 3 Milliliter Nebulized inhalation Four (4) times a day Duration: 30 Days INHALE 3ML VIA NEBULIZER 4 TIMES A DAY NEEDED FOR SHORTNESS OF BREATH OR WHEEZING Pickup at [facility] Changed empagliflozin (Jardiance 10 mg oral tablet) TAKE ONE TABLET BY MOUTH EVERY MORNING Changed furosemide (furosemide 40 mg oral tablet) 1 tab(s) by mouth Every day Pickup at [facility] Changed glimepiride (glimepiride 2 mg oral tablet) 1 tab(s) by mouth Once a day Changed pantoprazole (pantoprazole 40 mg oral enteric coated tablet) TAKE ONE TABLET BY MOUTH TWICE A DAY Changed tiotropium (Spiriva HandiHaler 18 mcg inhalation capsule) 1 cap by inhalation Once a day COPD without exacerbation COPD with acute exacerbation Duration: 30 Days Restarting medication. Please fill as Spiriva HandiHaler KESHA and discontinue Advair and other Spiriva prescription. Use two inhalations of one capsule for each dose. Please Dispense as Written, Generic is making patient cough. Pickup at [facility] Unchanged atorvastatin (atorvastatin 80 mg oral tablet) 1 tab(s) by mouth Once a day Hyperlipidemia Unchanged cholecalciferol (Vitamin D3 25 mcg (1000 intl units) oral capsule) 1 cap by mouth Every day Unchanged DME (Blood Glucose Test Strips) See instructions Controlled diabetes mellitus with hyperglycemia Type 2 diabetes mellitus with hemoglobin A1c goal of less than 7.5% One touch ultra blue test strips #60 pt to test twice daily. Unchanged DME (DME MISCellaneous) See instructions Controlled diabetes mellitus with hyperglycemia Type 2 diabetes mellitus with hemoglobin A1c goal of less than 7.5% One touch Delica Lancet 33g, 1 box of 100, testing 2 times daily Unchanged DME (DME MISCellaneous) See instructions Dispense 1 medical alert bracelet/ necklace Unchanged DME (DME MISCellaneous) See instructions Hypoxia Supplemental oxygen dependent Portable oxygen tank and all necessary supplies. Patient needs to use oxygen continuously to keep oxygenation sat greater than 92%. Normally 2 L to 4 L nasal cannula. Dx: MENG with hypoxia, oxygen dependent Unchanged liothyronine (liothyronine 25 mcg oral tablet) 1 tab(s) by mouth Once a day Hypothyroidism Hypothyroidism Duration: 90 Days Unchanged lisinopril (lisinopril 10 mg oral tablet) 1 tab(s) by mouth Once a day Hypertension associated with type 2 diabetes mellitus Unchanged Misc Medication Oxygen 1-3 L/ M via NC Unchanged omega-3 polyunsaturated fatty acids (omega-3 fish oil 1000 mg oral capsule) 2 cap by mouth Two (2) times a day Unchanged sucralfate (Carafate 1 g oral tablet) 1 tab(s) by mouth Two (2) times daily before meals Pharmacy Information [facility]: [address] [place] [address] [phone] What How Much When Why Comments Stop Taking carvedilol (carvedilol 3.125 mg oral tablet) 1 tab(s) by mouth Two (2) times a day Stop Taking carvedilol (carvedilol 3.125 mg oral tablet) 1 tab(s) by mouth Two (2) times a day Stop Taking ipratropium (ipratropium 500 mcg/ 2.5 mL inhalation solution) Stop Taking ipratropium (ipratropium 500 mcg/ 2.5 mL inhalation solution) INHALE 2.5ML 4 TIMES A DAY Stop Taking ipratropium (ipratropium 500 mcg/ 2.5 mL inhalation solution) 2.5 Milliliter by inhalation Four (4) times a day COPD with acute exacerbation Chronic hypoxemic respiratory failure Duration: 30 Days Stop Taking predniSONE (Deltasone 20mg tab (TAPER)) 1 tab(s) by mouth Two (2) times a day Stop Taking torsemide (torsemide 10 mg oral tablet) 1 tab(s) by mouth Once a day Acute on chronic systolic CHF (congestive heart failure) Increased dose Stop Taking torsemide (torsemide 10 mg oral tablet) Stop Taking torsemide (torsemide 5 mg oral tablet) 1 tab(s) by mouth Every day Please take this list to your next doctor s visit. Bring all medications you take, including over the counter medications, herbals and other supplements with you to your doctor s visit. Patients and families are reminded to discard old lists and to update any records with all medication providers or retail pharmacies. Education Materials Heart Failure Action Plan A heart failure action plan helps you understand what to do when you have symptoms of heart failure. Follow the plan that was created by you and your health care provider. Review your plan each time you visit your health care provider. Red zone These signs and symptoms mean you should get medical help right away: You have trouble breathing when resting. You have a dry cough that is getting worse. You have swelling or pain in your legs or abdomen that is getting worse. You suddenly gain more than 2 3 lb (0.9 1.4 kg) in a day, or more than 5 lb (2.3 kg) in one week. This amount may be more or less depending on your condition. You have trouble staying awake or you feel confused. You have chest pain. You do not have an appetite. You pass out. If you experience any of these symptoms: Call your local emergency services (911 in the [place] right away or seek help at the emergency department of the nearest hospital. Yellow zone These signs and symptoms mean your condition may be getting worse and you should make some changes: You have trouble breathing when you are active or you need to sleep with extra pillows. You have swelling in your legs or abdomen. You gain 2 3 lb (0.9 1.4 kg) in one day, or 5 lb (2.3 kg) in one week. This amount may be more or less depending on your condition. You get tired easily. You have trouble sleeping. You have a dry cough. If you experience any of these symptoms: Contact your health care provider within the next day. Your health care provider may adjust your medicines. Green zone These signs mean you are doing well and can continue what you are doing: You do not have shortness of breath. You have very little swelling or no new swelling. Your weight is stable (no gain or loss). You have a normal activity level. You do not have chest pain or any other new symptoms. Follow these instructions at home: Take [id number] and prescription medicines only as told by your health care provider. Weigh yourself daily. Your target weight is lb ( kg). ? Call your health care provider if you gain more than lb ( kg) in a day, or more than lb ( kg) in one week. Eat a heart-healthy diet. Work with a diet and presales senior specialist (dietitian) to create an eatingplan that is best for you. Keep all follow-up visits as told by your health care provider. This is important. Where to find more information [place] [employer]: www.heart.org Summary Follow the action plan that was created by you and your health care provider. Get help right away if you have any symptoms in the Red zone. This information is not intended to replace advice given to you by your health care provider. Make sure you discuss any questions you have with your health care provider. Document Released: 04/07/2017 Document Revised: 02/08/2018 Document Reviewed: 04/07/2017 [employer] Patient Education 2020 [employer] Heart Failure, Self Care Heart failure is a serious condition. This sheet explains things you need to do to take care of yourself at home. To help you stay as healthy as possible, you may be asked to change your diet, take certain medicines, and make other changes in your life. Your doctor may also give you more specific instructions. If you have problems or questions, call your doctor. What are the risks? Having heart failure makes it more likely for you to have some problems. These problems can get worse if you do not take good care of yourself. Problems may include: Blood clotting problems. This may cause a stroke. Damage to the kidneys, liver, or lungs. Abnormal heart rhythms. Supplies needed: Scale for weighing yourself. Blood pressure monitor. Notebook. Medicines. How to care for yourself when you have heart failure Medicines Take jpyp-twd-lmhgorq and prescription medicines only as told by your doctor. Take your medicines every day. Do not stop taking your medicine unless your doctor tells you to do so. Do not skip any medicines. Get your prescriptions refilled before you run out of medicine. This is important. Eating and drinking Eat heart-healthy foods. Talk with a diet specialist (dietitian) to create an eating plan. Choose foods that: ? Have no trans fat. ? Are low in saturated fat and cholesterol. Choose healthy foods, such as: ? Fresh or frozen fruits and vegetables. ? Fish. ? Low-fat (lean) meats. ? Legumes, such as beans, peas, and lentils. ? Fat-free or low-fat dairy products. ? Whole-grain foods. ? High-fiber foods. Limit salt (sodium) if told by your doctor. Ask your diet specialist to tell you which seasonings are healthy for your heart. Cook in healthy ways instead of frying. Healthy ways of cooking include roasting, grilling, broiling, baking, poaching, steaming, and stir-frying. Limit how much fluid you drink, if told by your doctor. Alcohol use Do not drink alcohol if: ? Your doctor tells you not to drink. ? Your heart was damaged by alcohol, or you have very bad heart failure. ? You are , may be , or are planning to become . If you drink alcohol: ? Limit how much you use to: ? 0 1 drink a day for women. ? 0 2 drinks a day for men. ? Be aware of how much alcohol is in your drink. In the [place] one drink equals one 12 oz bottle of beer (355 mL), one 5 oz glass of wine (148 mL), or one 1 oz glass of hard liquor (44 mL). Lifestyle Do not use any products that contain nicotine or tobacco, such as cigarettes, e- cigarettes, and chewing tobacco. If you need help quitting, ask your doctor. ? Do not use nicotine gum or patches before talking to your doctor. Do not use illegal drugs. Lose weight if told by your doctor. Do physical activity if told by your doctor. Talk to your doctor before you begin an exercise if: ? You are an older adult. ? You have very bad heart failure. Learn to manage stress. If you need help, ask your doctor. Get rehab (rehabilitation) to help you stay independent and to help with your quality of life. Plan time to rest when you get tired. Check weight and blood pressure Weigh yourself every day. This will help you to know if fluid is building up in your body. ? Weigh yourself every morning after you pee (urinate) and before you eat breakfast. ? Wear the same amount of clothing each time. ? Write down your daily weight. Give your record to your doctor. Check and write down your blood pressure as told by your doctor. Check your pulse as told by your doctor. Dealing with very hot and very cold weather If it is very hot: ? Avoid activities that take a lot of energy. ? Use air conditioning or fans, or find a cooler place. ? Avoid caffeine and alcohol. ? Wear clothing that is loose-fitting, lightweight, and light-colored. If it is very cold: ? Avoid activities that take a lot of energy. ? Layer your clothes. ? Wear mittens or gloves, a hat, and a scarf when you go outside. ? Avoid alcohol. Follow these instructions at home: Stay up to date with shots (vaccines). Get pneumococcal and flu (influenza) shots. Keep all follow-up visits as told by your doctor. This is important. Contact a doctor if: You gain weight quickly. You have increasing shortness of breath. You cannot do your normal activities. You get tired easily. You cough a lot. You don't feel like eating or feel like you may vomit (nauseous). You become puffy (swell) in your hands, feet, ankles, or belly (abdomen). You cannot sleep well because it is hard to breathe. You feel like your heart is beating fast (palpitations). You get dizzy when you stand up. Get help right away if: You have trouble breathing. You or someone else notices a change in your behavior, such as having trouble staying awake. You have chest pain or discomfort. You pass out (faint). These symptoms may be an emergency. Do not wait to see if the symptoms will go away. Get medical help right away. Call your local emergency services (911 in the [place] Do not drive yourself to the hospital. Summary Heart failure is a serious condition. To care for yourself, you may have to change your diet, take medicines, and make other lifestyle changes. Take your medicines every day. Do not stop taking them unless your doctor tells you to do so. Eat heart-healthy foods, such as fresh or frozen fruits and vegetables, fish, lean meats, legumes, fat-free or low-fat dairy products, and whole-grain or high-fiber foods. Ask your doctor if you can drink alcohol. You may have to stop alcohol use if you have very bad heart failure. Contact your doctor if you gain weight quickly or feel that your heart is beating too fast. Get help right away if you pass out, or have chest pain or trouble breathing. This information is not intended to replace advice given to you by your health care provider. Make sure you discuss any questions you have with your health care provider. Document Released: 06/11/2019 Document Revised: 06/10/2019 Document Reviewed: 06/11/2019 [employer] Patient Education 2020 [employer]. Heart Failure Eating Plan Heart failure, also called congestive heart failure, occurs when your heart does not pump blood well enough to meet your body's needs for oxygen-rich blood. Heart failure is a long-term (chronic) condition. Living with heart failure can be challenging. However, following your health care provider'sinstructions about a healthy lifestyle and working with a diet and presales senior specialist (dietitian) to choose the right foods may help to improve your symptoms. What are tips for following this plan? Reading food labels Check food labels for the amount of sodium per serving. Choose foods that have less than 140 mg (milligrams) of sodium in each serving. Check food labels for the number of calories per serving. This is important if you need to limit your daily calorie intake to lose weight. Check food labels for the serving size. If you eat more than one serving, you will be eating more sodium and calories than what is listed on the label. Look for foods that are labeled as sodium-free, very low sodium, or low sodium. ? Foods labeled as reduced sodium or lightly salted may still have more sodium than what is recommended for you. Cooking Avoid adding salt when cooking. Ask your health care provider or dietitian before using salt substitutes. Season food with salt-free seasonings, spices, or herbs. Check the label of seasoning mixes to makesure they do not contain salt. Cook with heart-healthy oils, such as olive, canola, soybean, or sunflower oil. Do not saldivar foods. Cook foods using low-fat methods, such as baking, boiling, grilling, and broiling. Limit unhealthy fats when cooking by: ? Removing the skin from poultry, such as chicken. ? Removing all visible fats from meats. ? Skimming the fat off from stews, soups, and gravies before serving them. Meal planning Limit your intake of: ? Processed, canned, or pre-packaged foods. ? Foods that are high in trans fat, such as fried foods. ? Sweets, desserts, sugary drinks, and other foods with added sugar. ? Full-fat dairy products, such as whole milk. Eat a balanced diet that includes: ? 4 5 servings of fruit each day and 4 5 servings of vegetables each day. At each meal, try to fill half of your plate with fruits and vegetables. ? Up to 6 8 servings of whole grains each day. ? Up to 2 servings of lean meat, poultry, or fish each day. One serving of meat is equal to 3 oz. This is about the same size as a deck of cards. ? 2 servings of low-fat dairy each day. ? Heart-healthy fats. Healthy fats called omega-3 fatty acids are found in foods such as flaxseed andcold-water fish like sardines, salmon, and mackerel. Aim to eat 25 35 g (grams) of fiber a day. Foods that are high in fiber include apples, broccoli, carrots, beans, peas, and whole grains. Do not add salt or condiments that contain salt (such as soy sauce) to foods before eating. When eating at a restaurant, ask that your food be prepared with less salt or no salt, if possible. Try to eat 2 or more vegetarian meals each week. Eat more home-cooked food and eat less restaurant, buffet, and fast food. General information Do not eat more than 2,300 mg of salt (sodium) a day. The amount of sodium that is recommended for you may be lower, depending on your condition. Maintain a healthy body weight as directed. Ask your health care provider what a healthy weight is for you. ? Check your weight every day. ? Work with your health care provider and dietitian to make a plan that is right for you to lose weight or maintain your current weight. Limit how much fluid you drink. Ask your health care provider or dietitian how much fluid you can have each day. Limit or avoid alcohol as told by your health care provider or dietitian. Recommended foods The items listed may not be a complete list. Talk with your dietitian about what dietary choices are best for you. Fruits All fresh, frozen, and canned fruits. Dried fruits, such as raisins, prunes, and cranberries. Vegetables All fresh vegetables. Vegetables that are frozen without sauce or added salt. Low-sodium or sodium-free canned vegetables. Grains Bread with less than 80 mg of sodium per slice. Whole-wheat pasta, quinoa, and brown rice. Oats andoatmeal. Barley. Millet. Grits and cream of wheat. Whole- grain and whole-wheat cold cereal. Meats and other protein foods Lean cuts of meat. Skinless chicken and turkey. Fish with high omega-3 fatty acids, such as salmon,sardines, and other cold-water fishes. Eggs. Dried beans, peas, and edamame. Unsalted nuts and nut butters. Dairy Low-fat or nonfat (skim) milk and dried milk. Rice milk, soy milk, and almond milk. Low-fat or nonfat yogurt. Small amounts of reduced-sodium block cheese. Low-sodium cottage cheese. Fats and oils [place], canola, soybean, flaxseed, or sunflower oil. Avocado. Sweets and desserts Apple sauce. Granola bars. Sugar-free pudding and gelatin. Frozen fruit bars. Seasoning and other foods Fresh and dried herbs. Lemon or [place] juice. Vinegar. Low-sodium ketchup. Salt- free marinades, saladdressings, sauces, and seasonings. The items listed above may not be a complete list of foods and beverages you can eat. Contact a dietitian for more information. Foods to avoid The items listed may not be a complete list. Talk with your dietitian about what dietary choices are best for you. Fruits Fruits that are dried with sodium-containing preservatives. Vegetables Canned vegetables. Frozen vegetables with sauce or seasonings. Creamed vegetables. Italian fries. Onion rings. Pickled vegetables and sauerkraut. Grains Bread with more than 80 mg of sodium per slice. Hot or cold cereal with more than 140 mg sodium perserving. Salted pretzels and crackers. Pre-packaged breadcrumbs. Bagels, croissants, and biscuits. Meats and other protein foods Ribs and chicken wings. Mejias, ham, pepperoni, bologna, salami, and packaged luncheon meats. Hot dogs, bratwurst, and sausage. Canned meat. Smoked meat and fish. Salted nuts and seeds. Dairy Whole milk, tlfz-cbi-ntwz, and cream. Buttermilk. Processed cheese, cheese spreads, and cheese curds. Regular cottage cheese. Feta cheese. Shredded cheese. String cheese. Fats and oils Butter, lard, shortening, ghee, and mejias fat. Canned and packaged gravies. Seasoning and other foods Onion salt, garlic salt, table salt, and sea salt. Marinades. Regular salad dressings. Relishes, pickles, and olives. Meat flavorings and tenderizers, and bouillon cubes. Horseradish, ketchup, and mustard. [facility] Center[facility] sauce. Teriyaki sauce, soy sauce (including reduced sodium). Hot sauce and Tabasco sauce. Steak sauce, fish sauce, oyster sauce, and cocktail sauce. Taco seasonings. Barbecue sauce. Tartar sauce. The items listed above may not be a complete list of foods and beverages you should avoid. Contact a dietitian for more information. Summary A heart failure eating plan includes changes that limit your intake of sodium and unhealthy fat, and it may help you lose weight or maintain a healthy weight. Your health care provider may also recommend limiting how much fluid you drink. Most people with heart failure should eat no more than 2,300 mg of salt (sodium) a day. The amount of sodium that is recommended for you may be lower, depending on your condition. Contact your health care provider or dietitian before making any major changes to your diet. This information is not intended to replace advice given to you by your health care provider. Make sure you discuss any questions you have with your health care provider. Document Released: 07/13/2017 Document Revised: 04/24/2019 Document Reviewed: 07/13/2017 [employer] Patient Education 2020 [employer] Additional Information VACCINATE! IT SAVES LIVES! Members of the community who have not yet received the COVID-19 vaccine and would like to receive it can visit one of [facility] vaccine clinics. There are many vaccine clinic locations within the [facility]. For locations and available times, please visit [email or web address] It is important to note that some COVID mobile vaccine clinics are held outdoors and may be canceled in rainy or stormy conditions. To learn more about pediatric vaccinations (ages 5-11), we invite you to visit the [facility] webpage. [email or web address] learn more about the COVID-19 vaccine, we invite you to visit the CDC website for a list of frequently asked questions.[email or web address].cdc.gov/coronavirus/2019-ncov/vaccines/faq.html [facility] Patient Portal Access Instructions: Stay connected with your healthcare team and access your personal medical information anytime with the [facility] Patient Portal. Please follow the directions below to create your [facility] account: 1.Access the email account you provided upon registration to the hospital/physician office.2.Look for an invitation email from [facility].3.Open the email and access the invitation link: AcceptInvitation to [facility].4.Fill in the required hollis to create your account. To access your account, visit [email or web address]. Click the blue button labeled Access Patient Portal and then log in with the username and password that you created in the steps above. You will be able to view your test results, lab results, a summary of your visits, upcoming appointments and more. There is also a convenient messaging option where you can send secure messages to your p rovider. In addition, you will have the ability to download any documents or summaries to your computer and/or send the information securely to a physician. Remember that your healthcare information is confidential, so carefully consider who you will allowto register on the [facility] Patient Portal for access to your information. You can also access the [facility] Patient Portal on the [facility] erika. Simply click on Patient Portal and then log into your account. If you would like to receive a full copy of your medical records, please contact the [facility] Medical Records Department by calling [phone], Sunday through Sunday between 8 a.m. and 4:30 p.m. HOW TO SAFELY DISPOSE OF PRESCRIPTION MEDICATIONS Please use one of the following methods to safely dispose of your unused medications. 1.Use a drug disposal kit: the drug disposal pouch allows you to safely discard your old and unuseddrugs. Ask your nurse to give you one when you are discharged.2.Visit a local take-back location: Many local pharmacies and police departments have programs that collect old and unwanted prescriptiondrugs. Call your local pharmacy or go to http://[employer].Xapo/5C5Ig5j to find one close to you.3.Make use of household items: Use cat litter or old coffee grounds to dispose medications if other options arenot available. Mix your drugs with these household products, seal them in an airtight container andthrow it into the garbage. Call [facility]: [phone] to be sure your drugs can be disposed of in this way. Some medicines may require a different approach.4.Never flush your medications down the toilet. IF YOU HAVE BEEN PRESCRIBED AN OPIOID FOR PAIN If you have been prescribed an opioid (such as hydrocodone, oxycodone or morphine), it is critical to understand the possible side effects and risks of opioid pain medications. Even when taken as directed, opioids can have several side effects including: Tolerance, meaning you might need to take more of a medication for the same pain relief. Nausea, vomiting and/or constipation. Sleepiness, dizziness, dry mouth, confusion, depression or itching. Physical dependence, meaning you have withdrawal symptoms when a medication is stopped, can develop within a few days. KNOW YOUR RESPONSIBILITIES It is important to know exactly how much and how often to take the opioid pain medications you are prescribed. Never take opioids in higher amounts or more often than prescribed. Do not combine opioids with alcohol or other drugs that cause drowsiness, such as benzodiazepines, also known as benzos, including diazepam and alprazolam, muscle relaxants or sleep aids. Never sell or share prescription opioids. This is illegal. Store opioids in a secure place and out of reach of others (including children, family, friends and visitors). The last page of this document has been signed and retained as a CHART COPY. Signatures Patient Education Materials Heart Failure Action Plan Heart Failure, Self Care, Ojpv-vk-Xgsv Heart Failure Eating Plan Medication Leaflets My discharge plan and instructions have been reviewed and explained to me and I,BEULAH BRIGHT understand my current condition and have read and understand these discharge instructions. I have received a written copy of the plan/instructions. If I have questions, I am aware that I should contact my doctor. 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: Date/Time: Relationship to Patient: Witness Name/Signature: [id number] Discharge summary Date of Service 06/11/2023 Discharge Diagnosis Hypertensive heart and chronic kidney disease with heart failure and stage 1 through stage 4 chronic kidney disease, or unspecified chronic kidney disease (I13.0 - ICD-10-CM) Acute on chronic systolic (congestive) heart failure (I50.23 - ICD-10-CM) Acute and chronic respiratory failure with hypoxia (J96.21 - ICD-10-CM) Acute kidney failure, unspecified (N17.9 - ICD-10-CM) Chronic respiratory failure with hypoxia (J96.11 - ICD-10-CM) Chronic obstructive pulmonary disease with (acute) lower respiratory infection (J44.0 - ICD-10-CM) 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 - ICD-10-CM) 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-10-CM) Nonrheumatic aortic (valve) stenosis (I35.0 - ICD-10-CM) Pure hypercholesterolemia, unspecified (E78.00 - ICD-10-CM) Anemia (D64.9 - ICD-10-CM) CHF (congestive heart failure) (I50.9 - ICD-10-CM) History of peptic ulcer (Z87.11 - ICD-10-CM) Hyperlipidemia (E78.5 - ICD-10-CM) Hypothyroidism (E03.9 - ICD-10-CM) Hypothyroidism (E03.9 - ICD-10-CM) Shortness of breath (R06.02 - ICD-10-CM) Additional Orders: Other status: Basic Metabolic Panel,06/11/23 5:00:00 EDT, Next AM Draw (one day only), Blood, Once,Preferred Lab: [facility], Stop date 06/11/23 5:00:00 EDT(Complete) Other status: CBC,06/11/23 5:00:00 EDT, Next AM Draw (one day only), Blood, Once, Preferred Lab: [facility], Stop date 06/11/23 5:00:00 EDT(Complete) Other status: Chest XR 1 View (Portable),06/11/23 8:11:00 EDT, 06/11/23 8:11:00 EDT, Routine, evaluate for pulmonary edema, Full code, Portable: Yes, MTT with Monitor, Isolation: None, IV: Yes, Oxygen: Yes, Diabetes: Yes, : N/A, Wt k.3, [facility], ME6S(Complete) Other status: OT Consult,06/10/23 9:02:00 EDT, Once, Decreased balance/fall history(Complete) Other status: PT Consult,06/10/23 9:02:00 EDT, Once, Routine, Decreased mobility(Complete) Hospital Course 83-year-old with history of COPD, HFpEF, moderate aortic stenosis, COPD, coronary artery disease history of NSTEMI chronic hypoxia on 2 to 3 L nasal cannula at home presents with shortness of breath in ED patient was hemodynamically stable CBC notable for hemoglobin 7.7 (previous baseline around 9), creatinine 1.93 (essentially baseline), BNP 2.8K, chest x-ray with mild interstitial edema patientwas admitted for the management of respiratory distress due to COPD/CHF exacerbation in ED patient did have worsening of respiratory distress requiring NIPPV patient was initially admitted to MICU GI was consulted for anemia. GI recommending conservative management with twice daily PPI. Patient wasordered for 1 unit PRBC with appropriate rise in hemoglobin. Patient was initially started on diuresis and IV steroids. Patient was reexamined on 06/08 by supervisor shipping room MICU team was less concern for COPD exacerbation patient was downgraded to the floor. Patient has clinically improved respiratory status is at baseline. Patient appears euvolemic. Patient has been saturating 97% on 2 L at rest. No signs of GI bleed have been noted. Patient has been evaluated by PT cleared for home. Patient will be discharged home follow-up with PCP and cardiology/structural heart team for evaluation for aortic stenosis on outpatient basis. Patient can follow-up with GI provider as needed. 1. Chronic respiratory failure on respiratory failure on 2 L of O2 nasal cannula 2. Anemia with hemoglobin of 7.1, without hematemesis, melena or hematochezia. 3. COPD without exacerbation. 4. History of congestive heart failure with preserved LV systolic function, and aortic valve disease 5. Chronic kidney disease. 6. History of diabetes mellitus type 2 and hypertension. Allergies Valturna (Numbness of hand, Numbness of finger, Numbness) codeine (Stomach problem, Nausea) Consults Consult to Case Management/Social Service (Consult to Case Management) - Ordered -- 06/11/23 11:20:12 EDT Consult to Case Management/Social Service (Consult to Case Management) - Ordered -- 06/11/23 11:31:57 EDT Consult to Case Management/Social Service (Consult to Social Service/Case Management) - Ordered -- 06/09/23 13:04:00 EDT, Home Situtation Medication Assistance, pt supposed to be on many meds, poor historian/does not know which meds he should be on. Daughter Ana M also does not know which meds. Consult to Physician - Ordered -- 06/09/23 12:13:00 EDT, NAMRATA ESPINO MD, Routine, anemia w/ hx of GI bleed Physical Exam Vitals and Measurements T: 36.3 C (Oral) TMIN: 36.3 C (Oral) TMAX: 36.7 C (Oral) HR: 75(Apical) RR: 20 BP: 128/57 SpO2: 97% Weight Dosing Weight: 83.3 kg (06/08/23) Awake alert oriented x 4 speech fluent and clear cranial nerves intact Lungs clear to auscultation Abdomen soft nontender no rebound no guarding No lower extremity edema Code Status Code Status - Ordered -- 06/08/23 23:20:00 EDT, Full Code, Constant Order Admission Date 06/08/2023 Discharge Date 06/11/2023 Patient Instructions The following was transcribed using voice recognition software, please feel free to contact your care team to clarify any misunderstandings. You were admitted for shortness of breath. Your shortness of breath appears to be due to multiple causes a mild congestive heart failure exacerbation, possibly a COPD flare and anemia. You were transfused blood seen by a [facility] and started on IV diuretics (water pills). Please follow-up with your primary care doctor, we will have you follow-up with a [facility] hosp[facility] for your aortic stenosis (narrow heart valve). Please follow-up with your established footwear sales leader. If you do not have an established footwear sales leader I will provide you with information for a footwear sales leader. Again please contact your primary care doctor soon as possible. Please seek medical assistance if your symptoms recur or worsen. Take care Medications New Prescription metoprolol (Toprol-XL 25 mg oral tablet, extended release)1 tab(s) by mouth once a day with a meal.Refills: 0. Changed albuterol-ipratropium (albuterol-ipratropium 2.5 mg-0.5 mg/3 mL inhalation solution)3 Milliliter Nebulized inhalation four (4) times a day for 30 Days. INHALE 3ML VIA NEBULIZER 4 TIMES A DAY NEEDED FOR SHORTNESS OF BREATH OR WHEEZING. Refills: 0. empagliflozin (Jardiance 10 mg oral tablet)TAKE ONE TABLET BY MOUTH EVERY MORNING. furosemide (furosemide 40 mg oral tablet)1 tab(s) by mouth every day. Refills: 0. glimepiride (glimepiride 2 mg oral tablet)1 tab(s) by mouth once a day. pantoprazole (pantoprazole 40 mg oral enteric coated tablet)TAKE ONE TABLET BY MOUTH TWICE A DAY. tiotropium (Spiriva HandiHaler 18 mcg inhalation capsule)1 cap by inhalation once a day for 30 Days. Restarting medication. Please fill as Spiriva HandiHaler KESHA and discontinue Advair and other Spiriva prescription. Use two inhalations of one capsule for each dose. Please Dispense as Written, Generic is making patient cough.. Refills: 5. Unchanged atorvastatin (atorvastatin 80 mg oral tablet)1 tab(s) by mouth once a day. Refills: 3. cholecalciferol (Vitamin D3 25 mcg (1000 intl units) oral capsule)1 cap by mouth every day. DME (Blood Glucose Test Strips)One touch ultra blue test strips #60 pt to test twice daily.. Refills: 11. DME (DME MISCellaneous)One touch Delica Lancet 33g, 1 box of 100, testing 2 times daily. Refills: 11. DME (DME MISCellaneous)Dispense 1 medical alert bracelet/necklace. Refills: 0. DME (DME MISCellaneous)Portable oxygen tank and all necessary supplies. Patient needs to use oxygencontinuously to keep oxygenation sat greater than 92%. Normally 2 L to 4 L nasal cannula. Dx: MENG with hypoxia, oxygen dependent. Refills: 0. liothyronine (liothyronine 25 mcg oral tablet)1 tab(s) by mouth once a day for 90 Days. Refills: 1. lisinopril (lisinopril 10 mg oral tablet)1 tab(s) by mouth once a day. Refills: 5. Misc MedicationOxygen 1-3 L/M via NC. omega-3 polyunsaturated fatty acids (omega-3 fish oil 1000 mg oral capsule)2 cap by mouth two (2) times a day. sucralfate (Carafate 1 g oral tablet)1 tab(s) by mouth two (2) times daily before meals. Discontinued carvedilol (carvedilol 3.125 mg oral tablet)1 tab(s) by mouth two (2) times a day. Refills: 1. carvedilol (carvedilol 3.125 mg oral tablet)1 tab(s) by mouth two (2) times a day. ipratropium (ipratropium 500 mcg/2.5 mL inhalation solution) ipratropium (ipratropium 500 mcg/2.5 mL inhalation solution)INHALE 2.5ML 4 TIMES A DAY. ipratropium (ipratropium 500 mcg/2.5 mL inhalation solution)2.5 Milliliter by inhalation four (4) times a day for 30 Days. Refills: 5. predniSONE (Deltasone 20mg tab (TAPER))1 tab(s) by mouth two (2) times a day. torsemide (torsemide 10 mg oral tablet)1 tab(s) by mouth once a day. Increased dose. Refills: 1. torsemide (torsemide 10 mg oral tablet) torsemide (torsemide 5 mg oral tablet)1 tab(s) by mouth every day. Follow Up Follow Up with NAMRATA ESPINO MD When In 2 weeks Where: [address] [facility] [place] [address]- Follow Up with ROJAS AVILA MD When In 2 weeks Where: [address] [facility] [address] [facility] [place] [address]- [phone] Follow Up with TALYA NICHOLS DO When Within 1-2 days Where: [address] [facility] [place] [address] [phone] Follow Up Appointments No qualifying data available. Follow Up Labs/Studies Discharge Labs No Follow-up Labs Discharge Studies No Follow-up Studies Discharge Diet Discharge Diet - Ordered -- Type of Diet: Regular, Sodium limit: 2 gm, 06/11/23 12:21:00 EDT Discharge Activity Discharge Activity - Ordered -- Resume your pre-hospitalization activity, 06/11/23 12:21:00 EDT Condition on Discharge Stable Discharge Disposition Home Information Provided To Patient and daughter Ana M Time Spent Greater than 30 minutes was spent reviewing chart, placing orders developing treatment plan with greater than 50% of time spent at bedside counseling/coordinating care Digitally Signed by CHERI BROWNE MD on 06/11/2023 12:28 PM [id number] Progress note Date of Service 06/11/2023 Subjective Patient examined sitting up in the chair. He denies any current complaints. Had a dark brown stool yesterday. No melena or hematochezia. Tolerating his ordered diet. Indicates plan is for discharge today. States he has an appointment with his established GI physician next month. Objective Vitals and Measurements T: 36.3 C (Oral) TMIN: 36.3 C (Oral) TMAX: 36.7 C (Oral) HR: 75(Apical) RR: 20 BP: 128/57 SpO2: 97% Intake and Output 7AM Yesterday to 7AM Today Intake and Output (Last 24 hours) Intake Oral Intake 400.00 Output Urine Voided 1225.00 Stool Count 3.00 Urine Count 3.00 Total Summary Total Intake 400.00 Total Output 1225.00 Fluid Balance -825.00 Physical Exam General Appearance: Well appearing, and in no acute distress. Appropriate mood and affect. Head: Head is normocephalic and atraumatic. EENT: Sclera are nonicteric. Neck is supple without adenopathy. Trachea is midline. Cardiac: Heart rate and rhythm are normal. S1 and S2 noted. Lungs: No signs of respiratory distress. Lungs are clear bilaterally. On room air. Abdomen: Abdomen is soft, symmetric, no rebound/guarding, nontender. BS normoactive X 4 quadrants. No obvious masses or organomegaly appreciated. Rectal: Normal rectal sphincter tone. No external masses or lesions are appreciated. XXX colored stool noted. Extremities: No edema noted. Pulses palpable. Neurological: The patient is awake, alert, and oriented to person, place, and time with normal speech. Skin: Skin is warm, dry. Appropriate color for ethnicity. Weight Dosing Weight: 83.3 kg (06/08/23) Medications Medications (13) Active Scheduled: (11) albuterol - ipratropium 2.5 mg-0.5 mg/3 mL Inhal Leyla UD 3 mL, Inhalation, TIDRT atorvastatin 80 mg tablet 80 mg 1 tab(s), Oral, qDay budesonide 0.5 mg/2 mL Susp UD 0.5 mg 2 mL, Inhalation, BIDRT empagliflozin 10 mg tablet 10 mg 1 tab(s), Oral, qAM furosemide 40 mg tablet 40 mg 1 tab(s), Oral, qDay heparin 5,000 units/mL (1 mL) vial 5,000 unit(s) 1 mL, Subcutaneous, q8h insulin glargine 15 unit(s) 0.15 mL, Subcutaneous (INT), acBreakfast insulin lispro 100 units/mL Soln (3 mL) Give 0-10 units/dose, Subcutaneous, TIDAC liothyronine 25 mcg tablet 25 mcg 1 tab(s), Oral, qDay metoprolol succinate 25 mg ER tablet 25 mg 1 tab(s), Oral, qDayM pantoprazole 40 mg VIAL 40 mg, IV Push, BIDAC Continuous: (0) PRN: (2) albuterol 0.083% Soln UD (2.5mg/3 mL) 2.5 mg 3 mL, Inhalation, q2hRT dextrose 50% Solution Disp syringe 50 mL 12.5 gram(s) 25 mL, IV Push, AsDirected Lab Results 06/10 06:20 WBC: 7.2 Hgb: 9.3 L Hct: 27.0 L Platelet: 138 L Neutrophil %: 72.3 Glucose Level: 135 H Sodium Level: 139 Potassium Level: 4.7 BUN: 103.0 C Creatinine Lvl (s): 2.15 H 06/09 05:02 WBC: 13.8 H Hgb: 8.7 L Hct: 26.1 L Platelet: 139 L Neutrophil %: 89.9 H Protime: 12.7 PT International Ratio: 1.1 Glucose Level: 212 H Sodium Level: 134 L Potassium Level: 4.6 BUN: 96.0 H Creatinine Lvl (s): 1.96 H EKG EKG - Completed -- 06/09/23 6:00:00 EDT Assessment/Plan Problem list: Acute on chronic anemia Hx PUD-follows GI in Dr. Purnima Friend CHF SOB/hypoxic respiratory failure on 2 LNC We have been following the patient for anemia which is likely multifactorial in nature in the setting of numerous comorbidities/chronic disease. He has had an extensive workup with his established GIphysician in [place]. He is currently hemodynamically stable and free from any signs of active GI bleeding. s/p 1 unit PRBCs this admission on 06/08. Responded appropriately. Hemoglobin improved today at 9.3. Going forward, would continue twice daily PPI therapy and upon discharge. Avoid NSAIDs. Okay for low-dose aspirinif medically necessary. Outpatient follow-up with his established GI physician will be important. Management of remaining diagnoses per primary team/consultants. Further orders/recommendations pending discussion with Dr. Espino. Nothing further to offer from a GI standpoint at this time. We will sign off. Please call us with any questions or reconsult us if needed. Digitally Signed by MADELAINE MEI on 06/11/2023 11:27 AM [id number] Note ORIGINAL EXAMINATION: ONE XRAY VIEW OF THE CHEST06/11/2023 8:53 am COMPARISON: None. HISTORY: ORDERING SYSTEM PROVIDED HISTORY: Reason for Exam: evaluate for pulmonary edema FINDINGS: The heart is borderline in size. Atherosclerotic calcifications visualized. Vascular structures appear within normal limits. Bibasilar airspace disease. Small pleural effusions. No aggressive osseous lesions identified. IMPRESSION: Patchy bibasilar atelectasis or other airspace disease is more severe on the left. There are small pleural effusions suspected. Follow to resolution Interpreted by: Shahid Pond MD Preliminary Report By: Shahid Pond MD Electronically signed By Shahid Pond MD Dictated Date: 06/11/2023 9:04:19 AM Prelim Date: 06/11/2023 9:08:01 AM Sign Date: 06/11/2023 9:08:01 AM Ordering Provider: [facility]03-31-2024 Note Date of Service 06/10/2023 Chief Complaint Shortness of breath Subjective 83-year-old with history of COPD, HFpEF, moderate aortic stenosis, COPD, coronary artery disease history of NSTEMI chronic hypoxia on 2 to 3 L nasal cannula at home presents with shortness of breath in ED patient was hemodynamically stable CBC notable for hemoglobin 7.7 (previous baseline around 9), creatinine 1.93 (essentially baseline), BNP 2.8K, chest x-ray with mild interstitial edema patientwas admitted for the management of respiratory distress due to COPD/CHF exacerbation in ED patient did have worsening of respiratory distress requiring NIPPV patient was initially admitted to MICU GI was consulted for anemia. GI recommending conservative management with twice daily PPI. Patient wasordered for 1 unit PRBC with appropriate rise in hemoglobin. Patient was initially started on diuresis and IV steroids. Patient was reexamined on 06/08 by supervisor shipping room MICU team was less concern for COPD exacerbation patient was downgraded to the floor. Patient has clinically improved currently awaiting PT OT evaluation. Patient was seen and examined. Patient's work of breathing appears at baseline Patient without complaints saturating in the 90s on 2 L nasal cannula. Objective Vitals and Measurements T: 36.3 C (Oral) TMIN: 36.3 C (Oral) TMAX: 36.6 C (Oral) HR: 75 RR: 20 BP: 140/46 SpO2: 98% Intake and Output 7AM Yesterday to 7AM Today Intake and Output (Last 24 hours) Intake Oral Intake 900.00 Output Urine Voided 500.00 Urinary Catheter Output: 1900.00 Stool Count 0.00 Urine Count 5.00 Total Summary Total Intake 900.00 Total Output 2400.00 Fluid Balance -1500.00 Physical Exam Awake alert oriented x 4 speech is fluent and clear cranial nerves intact. Lungs are clear to auscultation no wheezing Abdomen soft nontender no rebound no guarding No lower extremity edema Weight Dosing Weight: 83.3 kg (06/08/23) Medications Medications (13) Active Scheduled: (11) albuterol - ipratropium 2.5 mg-0.5 mg/3 mL Inhal Leyla UD 3 mL, Inhalation, TIDRT atorvastatin 80 mg tablet 80 mg 1 tab(s), Oral, qDay budesonide 0.5 mg/2 mL Susp UD 0.5 mg 2 mL, Inhalation, BIDRT empagliflozin 10 mg tablet 10 mg 1 tab(s), Oral, qAM furosemide 40 mg tablet 40 mg 1 tab(s), Oral, qDay heparin 5,000 units/mL (1 mL) vial 5,000 unit(s) 1 mL, Subcutaneous, q8h insulin glargine 15 unit(s) 0.15 mL, Subcutaneous (INT), acBreakfast insulin lispro 100 units/mL Soln (3 mL) Give 0-10 units/dose, Subcutaneous, TIDAC liothyronine 25 mcg tablet 25 mcg 1 tab(s), Oral, qDay metoprolol succinate 25 mg ER tablet 25 mg 1 tab(s), Oral, qDayM pantoprazole 40 mg VIAL 40 mg, IV Push, BIDAC Continuous: (0) PRN: (2) albuterol 0.083% Soln UD (2.5mg/3 mL) 2.5 mg 3 mL, Inhalation, q4hRT dextrose 50% Solution Disp syringe 50 mL 12.5 gram(s) 25 mL, IV Push, AsDirected Lab Results 06/09 05:02 WBC: 13.8 H Hgb: 8.7 L Hct: 26.1 L Platelet: 139 L Neutrophil %: 89.9 H Protime: 12.7 PT International Ratio: 1.1 Glucose Level: 212 H Sodium Level: 134 L Potassium Level: 4.6 BUN: 96.0 H Creatinine Lvl (s): 1.96 H 06/08 14:04 Hgb: 8.4 L Hct: 24.5 L 06/08 04:48 WBC: 4.5 Hgb: 7.1 L Hct: 20.8 L Platelet: 108 L Neutrophil %: 90.6 H Glucose Level: 323 H Sodium Level: 141 Potassium Level: 4.5 BUN: 79.0 H Creatinine Lvl (s): 1.92 H EKG EKG - Completed -- 06/09/23 6:00:00 EDT Assessment/Plan Anemia 1. Chronic respite failures on 2 diocese of oxygen nasal cannula. 2. Anemia with hemoglobin of 7.1, without hematemesis, melena or hematochezia. 3. COPD without exacerbation. 4. History of congestive heart failure with preserved LV systolic function, and aortic valve disease 5. Chronic kidney disease. 6. History of diabetes mellitus type 2 and hypertension. Plan Patient initially presented with acute respiratory distress initially admitted to ICU. At this point patient does not appear to be in his COPD exacerbation patient does appear euvolemic. Patient is on home O2 settings. Patient was ordered for TTE to evaluate for worsening of aortic stenosis. EF is normal patient with moderate aortic stenosis cardiology team recommending outpatient follow-up. Willincrease sliding scale insulin to 0 to 10 units, and increase Lantus to 15 units. Home medications have been restarted as indicated. PT OT consulted plan for dispo within the next 24 hours. Orders: budesonide, Start: 06/10/23 9:01:00 EDT, Dose = 0.5 mg, = 2 mL, Inhalation, BIDRT, 0, 06/10/23 9:01:00 EDT insulin glargine, Start: 06/11/23 7:30:00 EDT, Dose = 15 unit(s), = 0.15 mL, Subcutaneous (INT), acBreakfast, Rate: 0 mL/hr, Infuse over: 0 minute(s), 06/10/23 9:04:00 EDT insulin lispro (HumaLOG), Start: 06/10/23 12:00:00 EDT, Give 0-10 units/dose, Subcutaneous, TIDAC, 06/10/23 9:03:00 EDT Blood Glucose Monitoring POC Consult to Occupational Therapy Consult to Physical Therapy Out of bed Digitally Signed by CHERI BROWNE MD on 06/10/2023 03:10 PM [id number] Cardiology Consult note Date of Service 06/09/2023 Reason for Consultation CHF Referring Physician Medical ICU History of Present Illness This is a 83-year-old male with prior history of diastolic heart failure, COPD,'s CKD, diabetes whopresented to the hospital due to shortness of breath. Was diagnosed with COPD exacerbation and due to being on BiPAP in the emergency department was subsequently admitted to the medical ICU. He was weaned off and is now on 2 L nasal cannula. Patient is hypertensive with blood pressure systolic 1 40-1 60s. Heart rate in 90s. He is on torsemide 5 mg daily at home which was recently increased to 10 mg daily. He received 1 dose of IV Lasix in the emergency department with 500 cc urine output. Cardiology has been consulted for further recommendations Review of Systems 12 point ROS reviewed and negative unless stated above. Physical Exam Vitals and Measurements T: 37 C (Oral) TMIN: 36.5 C (Oral) TMAX: 37 C (Oral) HR: 92(Monitored) RR: 24 BP: 165/57 SpO2: 96% HT: 165.1 cm WT: 83.3 kg BMI: 30.56 Weight Dosing Weight: 83.3 kg (06/08/23) General Appearance: in no acute distress. Alert. EENT: No thyroid disease. ocular movements intact Cardiac: RRR. S1 and S2. Systolic murmur Lungs: Bilateral crackles Abdomen: soft. non tender. bowel sounds audible Neurological: alert and oriented. Skin: warm. dry Lab Results 06/08 04:48 WBC: 4.5 Hgb: 7.1 L Hct: 20.8 L Platelet: 108 L Neutrophil %: 90.6 H Glucose Level: 323 H Sodium Level: 141 Potassium Level: 4.5 BUN: 79.0 H Creatinine Lvl (s): 1.92 H 06/08 00:04 WBC: 4.7 Hgb: 7.2 L Hct: 21.5 L Platelet: 110 L Neutrophil %: 90.5 H Glucose Level: 366 H Sodium Level: 139 Potassium Level: 4.7 BUN: 77.0 H Creatinine Lvl (s): 1.95 H Assessment/Plan Anemia History of peptic ulcer Hyperlipidemia Shortness of breath Acute hypoxic respiratory failure secondary to COPD exacerbation and CHF exacerbation Diastolic heart failure preserved LVEF Moderate to severe aortic stenosis Moderate CAD CKD Diabetes Hypertension Hyperlipidemia On exam patient is mildly volume overloaded. Will give 1 dose of 40 mg IV Lasix and closely follow urine output and kidney function. He does have CKD. Echocardiogram has been done. Patient has moderate to severe aortic stenosis. Will get structural heart team involved once patient has recovered this can also be done outpatient. Patient has been hypertensive. On Coreg and lisinopril at home which were held inpatient. We will start 25 mg Toprol daily. Problem List/Past Medical History Ongoing (HFpEF) heart failure with preserved ejection fraction Acute CHF (congestive heart failure) Acute kidney injury superimposed on chronic kidney disease Acute on chronic blood loss anemia Acute on chronic respiratory failure with hypoxia Acute on chronic systolic CHF (congestive heart failure) Anemia in CKD (chronic kidney disease) Anemia, unspecified Aortic stenosis Blister Blood loss anemia BMI 33.0-33.9,adult BMI 34.0-34.9,adult BPH (benign prostatic hyperplasia) CAD (coronary artery disease) Chest congestion Chronic hypoxemic respiratory failure Chronic kidney disease (CKD) CKD (chronic kidney disease) stage 4, GFR 15-29 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 COPD (chronic obstructive pulmonary disease) COPD with acute exacerbation COPD without exacerbation DM type 2, goal HbA1c < 7.5% Dyspnea on minimal exertion Elevated blood uric acid level Elevated liver enzymes Former tobacco use GI bleed GI bleeding Gout Gout flare Has received influenza vaccination in current influenza season Heart failure with preserved ejection fraction History of non-ST elevation myocardial infarction (NSTEMI) History of recent fall Hospital discharge follow-up Hospital discharge follow-up HTN (hypertension) Hypercholesterolemia Hyperkalemia Hyperlipidemia Hypertension associated with type 2 diabetes mellitus Hypothyroidism Ichthyosis vulgaris Limited mobility Medicare annual wellness visit, subsequent Need for influenza vaccination NSTEMI (non-ST elevated myocardial infarction) Obesity (BMI 30-39.9) Oxygen dependent Risk and functional assessment Screening for colon cancer Screening for prostate cancer Shortness of breath at rest Thrombocytopenia Type 2 diabetes mellitus with hemoglobin A1c goal of less than 7.5% Type 2 diabetes mellitus with hyperglycemia Type 2 diabetes mellitus with hyperlipidemia Type 2 diabetes mellitus with stage 4 chronic kidney disease Umbilical hernia Vitamin D deficiency Well adult exam Historical Diabetes mellitus Procedure/Surgical History Echocardiogram: 11/28/22 Cardiac catheterization: 03/15/22 Echocardiogram: 03/12/22 Cataract extraction: 09/29/18 Medications Inpatient atorvastatin, 80 mg= 1 tab(s), Oral, qDay Dextrose 50% IV Push, 12.5 gram(s)= 25 mL, IV Push, AsDirected, PRN heparin 5000 units/mL injection, 5000 unit(s)= 1 mL, Subcutaneous, q8h HumaLOG 100 units/mL subcutaneous solution, Give 0-5 units/dose, Subcutaneous, TIDAC HumaLOG 100 units/mL subcutaneous solution, Give 0-5 units/dose, Subcutaneous, TIDAC Lantus, 10 unit(s)= 0.1 mL, Subcutaneous (INT), acBreakfast Lasix, 40 mg= 1 tab(s), Oral, qDay Home albuterol-ipratropium 2.5 mg-0.5 mg/3 mL inhalation solution, 3 mL, Inhalation, QID, PRN, 1 refills atorvastatin 80 mg oral tablet, 80 mg= 1 tab(s), Oral, qDay, 3 refills Blood Glucose Test Strips, See Instructions, 11 refills carvedilol 3.125 mg oral tablet, 3.125 mg= 1 tab(s), Oral, BID, 1 refills DME MISCellaneous, See Instructions DME MISCellaneous, See Instructions, 11 refills DME MISCellaneous, See Instructions glimepiride 2 mg oral tablet, 2 mg= 1 tab(s), Oral, qDay ipratropium 500 mcg/2.5 mL inhalation solution, 500 mcg= 2.5 mL, Inhalation, QID, 5 refills Jardiance 10 mg oral tablet, 10 mg= 1 tab(s), Oral, qAM, 1 refills liothyronine 25 mcg oral tablet, 25 mcg= 1 tab(s), Oral, qDay, 1 refills lisinopril 10 mg oral tablet, 10 mg= 1 tab(s), Oral, qDay, 5 refills Misc Medication omega-3 fish oil 1000 mg oral capsule, 2000 mg= 2 cap(s), Oral, BID pantoprazole 40 mg oral enteric coated tablet, Refill needed, still taking (AMB only) Spiriva HandiHaler 18 mcg inhalation capsule, 18 mcg= 1 cap(s), Inhalation, qDay, 5 refills torsemide 10 mg oral tablet, 10 mg= 1 tab(s), Oral, qDay, 1 refills Vitamin D3 25 mcg (1000 intl units) oral capsule, 25 mcg= 1 cap(s), Oral, Daily Allergies Valturna (Numbness of hand, Numbness of finger, Numbness) codeine (Stomach problem, Nausea) Social History Smoking Status - 11/13/2017 Former smoker Alcohol - Denies Alcohol Use, 11/13/2017 Use: Past., 11/28/2018 Home/Environment Living situation: Home/Independent., 11/28/2018 Nutrition/Health Caffeine intake amount: 1 servings daily coffee., 12/22/2020 Substance Abuse - Denies Substance Abuse, 11/13/2017 Use: Never., 11/28/2018 Tobacco Nicotine Use: Former smoker, quit more than 30 days ago., 02/27/2019 Family History Breast cancer: Sister. CABG - Coronary artery bypass graft: Mother. CVA - Cerebrovascular accident: Mother and Father. Cancer: Sister and Brother. Diabetes mellitus: Sister. Heart disease: Mother, Father and Sister. Hyperlipidemia: Mother. Hypertension: Mother. TN - myocardial infarction: Mother. Immunizations pneumococcal 23-valent vaccine(Pneumovax: 0 unknown unit (01/31/16) pneumococcal 23-valent vaccine(Pneumovax: 0 unknown unit (07/31/14) SARS-CoV-2 mRNA (tozinameran) vaccine: 0.3 unknown unit (01/10/21) SARS-CoV-2 mRNA (tozinameran) vaccine: 0.5 unknown unit (06/19/20) SARS-CoV-2 mRNA (tozinameran) vaccine: 0.5 unknown unit (05/25/20) tetanus-diphtheria toxoids: 0 unknown unit (12/09/09) Digitally Signed by CAROL BARAHONA MD on 06/09/2023 01:03 PM [id number] Progress note SUBJECTIVE: Mr. Bright states his breathing is improved, but not back to baseline. OBJECTIVE: VITAL SIGNS: Blood pressure is 135/57, heart rate 69. HEENT: No JVD at 30 degrees. LUNGS: Decreased breath sounds. CARDIAC: Regular rate and rhythm, III/ crescendo-decrescendo murmur at the left lower sternal border with distant heart sounds. LABORATORY DATA: Sodium 134, potassium 4.6, BUN 96, creatinine 1.96. Creatinine was 1.92 yesterday and 1.95 the day before. ASSESSMENT AND PLAN: 1. Hypoxic respiratory failure secondary to COPD and CHF. 2. Moderate aortic stenosis. 3. Moderate CAD. 4. CKD. PLAN: At this point, we will continue with oral Lasix. His 2D echo was read as moderate aortic stenosis and this can be followed up as an outpatient. Blood pressure is much improved today and we willcontinue current medical therapy. No further cardiac recommendations at this point. We will sign off. Please call with questions. BART POOLE MD JP/NTS JOB#: [id number] DICTATION ID#: [id number] Digitally Signed by BART POOLE MD on 06/10/2023 01:30 PM [id number] NoteSINUS RHYTHM PROLONGED WA INTERVAL ABNORMAL R-WAVE PROGRESSION, EARLY TRANSITION LVH WITH SECONDARY REPOLARIZATION ABNORMALITY Electronic Signature: BART POOLE MD 06/10/2023 13:28:27[facility] 03-30-[facility] Res[facility] therapy Hospital Progress note Respiratory Therapy Evaluation Entered On: 06/09/2023 22:42 EDT Performed On: 06/09/2023 22:42 EDT by Mesha Henry RT Respiratory Therapy Evaluation Pulmonary Status : Pulmonary disorder Surgical Status : No surgeries Chest X-Ray : Infiltrates, atelectasis, pleural effusion Breath Sounds (RT) : Crackles or intermittent wheezes Respiratory Pattern (RT) : Increased RR=21-25 Cough (RT) : Strong, non-productive Respiratory Therapy Evaluation Score : 10 Level of Activity : Ambulatory with assistance Mental Status : Alert, oriented Respiratory Evaluation Triage Score : 4 - (6-10) Freq: TIDRT & Albuterol Q2hRT prn RT Assessment [Frequency/Schedule] : Change to TID treatments per protocol Mesha Henry RT - 06/09/2023 22:42 EDT Digitally Signed by Mesha Henry RT on 06/09/2023 10:42 PM [id number] Evaluation + Plan noteExtracted from: Title:History and Physical Author:AHMET CLARK MD Date:06/09/23 1. Chronic respite failures on 2 [place] of oxygen nasal cannula. 2. Anemia with hemoglobin of 7.1, without hematemesis, melena or hematochezia. 3. COPD without exacerbation. 4. History of congestive heart failure with preserved LV systolic function, and aortic valve disease, 2D echo has been repeated to assess and evaluate. 5. Chronic kidney disease. 6. History of diabetes mellitus type 2 and hypertension. Plan: 1. Patient is on 3 L oxygen per nasal cannula, does not seem to be in decompensated heart failure or acute exacerbation of COPD or acute chest infection. 2. 2D echo will order to evaluate the aortic valve along with cardiology follow- up. 3. GI consultation ordered to evaluate anemia since patient has prior history of GI bleed. 4. Bronchodilators and no need for steroid or antibiotic. 5. Subcu heparin for VTE prophylaxis. Transfusion floor and no further follow-up by [facility] Extracted from: Title:History and Physical Author:CINDY LEWIS Date:06/08/23 Assessment: 1. Acute hypoxic respiratory distress 2. COPD exacerbation 3. CHF exacerbation 4. History of CAD 5. History of CKD 6. History of diabetes 7. History of hyperlipidemia 8. History of hypertension Plan: Neuro: Continue to monitor mental status Cardio: Continue to monitor hemodynamic status Given a dose of Lasix for CHF exacerbation Pulm: Continue to monitor respiratory status Continue home oxygen therapy at 2 L via nasal cannula Continue DuoNebs and Solu-Medrol GI/: Monitor I's and O's GI prophylaxis/diet: Regular diet DVT prophylaxis: SCDs CODE STATUS: Full code Future Scheduled Tests Laboratory* Pathology Flow Cytometry Request 05/25/23 * Basic Metabolic Panel 02/08/23 * Basic Metabolic Panel 05/25/23 * Thyroid Stimulating Hormone 04/11/23 * Complete Blood Count 03/02/23 * Complete Blood Count 03/09/23 * Complete Blood Count 03/16/23 * Complete Blood Count 03/23/23 * Complete Blood Count 03/30/23 * Complete Blood Count 04/06/23 * Complete Blood Count 04/13/23 * Complete Blood Count 04/20/23 * Complete Blood Count 04/27/23 * Complete Blood Count 05/04/23 * Complete Blood Count 05/11/23 * Complete Blood Count 04/11/23 * Complete Blood Count 05/11/23 * Complete Blood Count 02/08/23 * Complete Blood Count 05/17/23 * Complete Blood Count 04/13/23 * Complete Blood Count 05/25/23 * Reticulocytes - Panel 05/25/23 * Complete Metabolic Panel 04/11/23 * Complete Metabolic Panel 04/13/23 * N-Terminal proBNP 04/13/23 [facility] 03-30-[facility] History and physical note Date of Service 06/09/2023 Chief Complaint Shortness of breath History of Present Illness This patient is an 83-year-old male presenting to the medical intensive care unit for acute hypoxicrespiratory distress secondary to his COPD exacerbation. He has a past medical history of COPD, CHF, CKD, diabetes, CAD, and prior NSTEMI. He was seen by his primary care physician where blood work was done and his hemoglobin was 7.7. He was then told to come to the emergency department for furtherevaluation. He was seen at [facility] for this. Also states that he had been having some shortness of breath. States that he wears 2 L to 3 L via nasal cannula at baseline. States that his shortness of breath is worsened over the last several days. More dyspneic with exertion. While in the emergency department his hemoglobin is noted to be 7.6. No transfusion was performed. No evidence of leukocytosis. No evidence of thrombocytopenia at the time. A CMP shows no significantelectrolyte abnormalities. Shows a creatinine of 2.24. Roughly baseline for this patient. BNP was noted to be 2501. This is also roughly baseline for the patient. Troponin is negative. Delta troponinis negative. Chest x-ray shows no evidence of pneumonia no pneumothoraces per my independent evaluation. Due to them likely mixed COPD and CHF exacerbation was determined that the patient be admitted to the hospital. While in the emergency department, the patient began to decompensate. Showed that he had increased work of breathing and moderate respiratory distress. Is placed on BiPAP. ABG was performed that shows pH of 7.43 with a pO2 147. Shows CO2 of 28. O2 sat of 99. Due to this patient's increased work of breathing and requirement of BiPAP, transferred to the medical intensive care unit for further evaluation. Upon arrival to the medical intensive care unit, the patient was back on his home oxygen at 2 L. Inthe emergency department he did receive multiple DuoNebs as well as Solu-Medrol for his COPD exacerbation. States that he feels at baseline at this time. Has no other complaints [1] Review of Systems Constitutional: No fever. No chills. No dizziness. No weakness. No weight loss. Eyes: No pain, erythema, or discharge. No blurring of vision. No yellow sclerae Ears, Nose, Throat: No hearing loss, sneezing, congestion, runny nose or sore throat. Cardiovascular: No chest pain, chest pressure or chest discomfort. No palpitations or edema. Respiratory: No shortness of breath, cough, pain with respiration, No hemoptysis. No dyspnea. Gastrointestinal: Normal appetite. No nausea, vomiting, diarrhea. No pain. No bloating. Genitourinary: No frequency, urgency, nocturia. No hematuria or dysuria. Musculoskeletal: No muscle, back pain, joint pain or stiffness. Skin: No swelling. No bruising. No abrasions. Neurological: No headache, dizziness, syncope, paralysis, ataxia, numbness or tingling in the extremities. No change in bowel or bladder control. Psychiatric: No confusion [2] Physical Exam Vitals and Measurements T: 37 C (Oral) TMIN: 36.5 C (Oral) TMAX: 37 C (Oral) HR: 88(Monitored) RR: 21 BP: 143/55 SpO2: 94% HT: 165.1 cm WT: 83.3 kg BMI: 30.56 Weight Dosing Weight: 83.3 kg (06/08/23) General patient is alert does not appear to be in any distress. Skin: Warm and dry no obvious rash or ulcerations. HEENT: The head is normal cephalic, pupils are equal, sclerae clear, mucous membranes are moist, mouth and throat without any exudate. Neck: No JVD or adenopathy. Cardiovascular: Normal heart sounds, 2 out of 6 systolic murmur Chest and lung exam: Normal excursion with symmetric chest wall movement. Chest wall is nontender. Lungs are clear, breath sounds equal there is no rales or rhonchi's no wheezing. Abdomen: No obvious visible abnormalities, soft, nontender, no organomegaly, no rigidity or tenderness. Neurologic: Alert moves all 4 extremities, no focal motor deficits present. Musculoskeletal: No clubbing, cyanosis or edema. Lymphatic: No evidence of lymphadenopathy or tenderness. Lab Results 06/08 04:48 WBC: 4.5 Hgb: 7.1 L Hct: 20.8 L Platelet: 108 L Neutrophil %: 90.6 H Glucose Level: 323 H Sodium Level: 141 Potassium Level: 4.5 BUN: 79.0 H Creatinine Lvl (s): 1.92 H 06/08 00:04 WBC: 4.7 Hgb: 7.2 L Hct: 21.5 L Platelet: 110 L Neutrophil %: 90.5 H Glucose Level: 366 H Sodium Level: 139 Potassium Level: 4.7 BUN: 77.0 H Creatinine Lvl (s): 1.95 H Assessment/Plan 1. Chronic respite failures on 2 [place] of oxygen nasal cannula. 2. Anemia with hemoglobin of 7.1, without hematemesis, melena or hematochezia. 3. COPD without exacerbation. 4. History of congestive heart failure with preserved LV systolic function, and aortic valve disease, 2D echo has been repeated to assess and evaluate. 5. Chronic kidney disease. 6. History of diabetes mellitus type 2 and hypertension. Plan: 1. Patient is on 3 L oxygen per nasal cannula, does not seem to be in decompensated heart failure or acute exacerbation of COPD or acute chest infection. 2. 2D echo will order to evaluate the aortic valve along with cardiology follow-up. 3. GI consultation ordered to evaluate anemia since patient has prior history of GI bleed. 4. Bronchodilators and no need for steroid or antibiotic. 5. Subcu heparin for VTE prophylaxis. Transfusion floor and no further follow-up by [facility] Problem List/Past Medical History Ongoing (HFpEF) heart failure with preserved ejection fraction Acute CHF (congestive heart failure) Acute kidney injury superimposed on chronic kidney disease Acute on chronic blood loss anemia Acute on chronic respiratory failure with hypoxia Acute on chronic systolic CHF (congestive heart failure) Anemia in CKD (chronic kidney disease) Anemia, unspecified Aortic stenosis Blister Blood loss anemia BMI 33.0-33.9,adult BMI 34.0-34.9,adult BPH (benign prostatic hyperplasia) CAD (coronary artery disease) Chest congestion Chronic hypoxemic respiratory failure Chronic kidney disease (CKD) CKD (chronic kidney disease) stage 4, GFR 15-29 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 COPD (chronic obstructive pulmonary disease) COPD with acute exacerbation COPD without exacerbation DM type 2, goal HbA1c < 7.5% Dyspnea on minimal exertion Elevated blood uric acid level Elevated liver enzymes Former tobacco use GI bleed GI bleeding Gout Gout flare Has received influenza vaccination in current influenza season Heart failure with preserved ejection fraction History of non-ST elevation myocardial infarction (NSTEMI) History of recent fall Hospital discharge follow-up Hospital discharge follow-up HTN (hypertension) Hypercholesterolemia Hyperkalemia Hyperlipidemia Hypertension associated with type 2 diabetes mellitus Hypothyroidism Ichthyosis vulgaris Limited mobility Medicare annual wellness visit, subsequent Need for influenza vaccination NSTEMI (non-ST elevated myocardial infarction) Obesity (BMI 30-39.9) Oxygen dependent Risk and functional assessment Screening for colon cancer Screening for prostate cancer Shortness of breath at rest Thrombocytopenia Type 2 diabetes mellitus with hemoglobin A1c goal of less than 7.5% Type 2 diabetes mellitus with hyperglycemia Type 2 diabetes mellitus with hyperlipidemia Type 2 diabetes mellitus with stage 4 chronic kidney disease Umbilical hernia Vitamin D deficiency Well adult exam Historical Diabetes mellitus Procedure/Surgical History Echocardiogram: 11/28/22 Cardiac catheterization: 03/15/22 Echocardiogram: 03/12/22 Cataract extraction: 09/29/18 Medications Home Medications (30) Active albuterol-ipratropium 2.5 mg-0.5 mg/3 mL inhalation solution 3 mL, PRN, Inhalation, QID albuterol-ipratropium 2.5 mg-0.5 mg/3 mL inhalation solution atorvastatin 80 mg oral tablet 80 mg = 1 tab(s), Oral, qDay Blood Glucose Test Strips See Instructions carvedilol 3.125 mg oral tablet 3.125 mg = 1 tab(s), Oral, BID carvedilol 3.125 mg oral tablet 3.125 mg = 1 tab(s), Oral, BID Deltasone 20mg tab (TAPER) 20 mg = 1 tab(s), Oral, BID DME MISCellaneous See Instructions DME MISCellaneous See Instructions DME MISCellaneous See Instructions furosemide 40 mg oral tablet 40 mg = 1 tab(s), Oral, Daily glimepiride 2 mg oral tablet 2 mg = 1 tab(s), Oral, qDay glimepiride 2 mg oral tablet 2 mg = 1 tab(s), Oral, qDay ipratropium 500 mcg/2.5 mL inhalation solution 500 mcg = 2.5 mL, Inhalation, QID ipratropium 500 mcg/2.5 mL inhalation solution ipratropium 500 mcg/2.5 mL inhalation solution Jardiance 10 mg oral tablet 10 mg = 1 tab(s), Oral, qAM Jardiance 10 mg oral tablet liothyronine 25 mcg oral tablet 25 mcg = 1 tab(s), Oral, qDay lisinopril 10 mg oral tablet 10 mg = 1 tab(s), Oral, qDay Misc Medication omega-3 fish oil 1000 mg oral capsule 2,000 mg = 2 cap(s), Oral, BID pantoprazole 40 mg oral enteric coated tablet pantoprazole 40 mg oral enteric coated tablet 40 mg = 1 tab(s), Oral, BID Spiriva HandiHaler 18 mcg inhalation capsule 18 mcg = 1 cap(s), Inhalation, qDay Spiriva HandiHaler 18 mcg inhalation capsule torsemide 10 mg oral tablet 10 mg = 1 tab(s), Oral, qDay torsemide 10 mg oral tablet torsemide 5 mg oral tablet 5 mg = 1 tab(s), Oral, Daily Vitamin D3 25 mcg (1000 intl units) oral capsule 25 mcg = 1 cap(s), Oral, Daily Allergies Valturna (Numbness of hand, Numbness of finger, Numbness) codeine (Stomach problem, Nausea) Social History Smoking Status - 11/13/2017 Former smoker Alcohol - Denies Alcohol Use, 11/13/2017 Use: Past., 11/28/2018 Home/Environment Living situation: Home/Independent., 11/28/2018 Nutrition/Health Caffeine intake amount: 1 servings daily coffee., 12/22/2020 Substance Abuse - Denies Substance Abuse, 11/13/2017 Use: Never., 11/28/2018 Tobacco Nicotine Use: Former smoker, quit more than 30 days ago., 02/27/2019 Family History Breast cancer: Sister. CABG - Coronary artery bypass graft: Mother. CVA - Cerebrovascular accident: Mother and Father. Cancer: Sister and Brother. Diabetes mellitus: Sister. Heart disease: Mother, Father and Sister. Hyperlipidemia: Mother. Hypertension: Mother. [place] - myocardial infarction: Mother. Immunizations pneumococcal 23-valent vaccine(Pneumovax: 0 unknown unit (01/31/16) pneumococcal 23-valent vaccine(Pneumovax: 0 unknown unit (07/31/14) SARS-CoV-2 mRNA (tozinameran) vaccine: 0.3 unknown unit (01/10/21) SARS-CoV-2 mRNA (tozinameran) vaccine: 0.5 unknown unit (06/19/20) SARS-CoV-2 mRNA (tozinameran) vaccine: 0.5 unknown unit (05/25/20) tetanus-diphtheria toxoids: 0 unknown unit (12/09/09) Code Status Code Status - Ordered -- 06/08/23 23:20:00 EDT, Full Code, Constant Order [1] History and Physical; CINDY LEWIS MD 06/08/2023 23:52 EDT [2] History and Physical; CINDY LEWIS MD 06/08/2023 23:52 EDT Digitally Signed by AHMET CLARK MD on 06/09/2023 01:35 PM [id number] Cardiology Consult note Date of Service 06/09/2023 Reason for Consultation CHF Referring Physician Medical ICU History of Present Illness This is a 83-year-old male with prior history of diastolic heart failure, COPD,'s CKD, diabetes whopresented to the hospital due to shortness of breath. Was diagnosed with COPD exacerbation and due to being on BiPAP in the emergency department was subsequently admitted to the medical ICU. He was weaned off and is now on 2 L nasal cannula. Patient is hypertensive with blood pressure systolic 1 40-1 60s. Heart rate in 90s. He is on torsemide 5 mg daily at home which was recently increased to 10 mg daily. He received 1 dose of IV Lasix in the emergency department with 500 cc urine output. Cardiology has been consulted for further recommendations Review of Systems 12 point ROS reviewed and negative unless stated above. Physical Exam Vitals and Measurements T: 37 C (Oral) TMIN: 36.5 C (Oral) TMAX: 37 C (Oral) HR: 92(Monitored) RR: 24 BP: 165/57 SpO2: 96% HT: 165.1 cm WT: 83.3 kg BMI: 30.56 Weight Dosing Weight: 83.3 kg (06/08/23) General Appearance: in no acute distress. Alert. EENT: No thyroid disease. ocular movements intact Cardiac: RRR. S1 and S2. Systolic murmur Lungs: Bilateral crackles Abdomen: soft. non tender. bowel sounds audible Neurological: alert and oriented. Skin: warm. dry Lab Results 06/08 04:48 WBC: 4.5 Hgb: 7.1 L Hct: 20.8 L Platelet: 108 L Neutrophil %: 90.6 H Glucose Level: 323 H Sodium Level: 141 Potassium Level: 4.5 BUN: 79.0 H Creatinine Lvl (s): 1.92 H 06/08 00:04 WBC: 4.7 Hgb: 7.2 L Hct: 21.5 L Platelet: 110 L Neutrophil %: 90.5 H Glucose Level: 366 H Sodium Level: 139 Potassium Level: 4.7 BUN: 77.0 H Creatinine Lvl (s): 1.95 H Assessment/Plan Anemia History of peptic ulcer Hyperlipidemia Shortness of breath Acute hypoxic respiratory failure secondary to COPD exacerbation and CHF exacerbation Diastolic heart failure preserved LVEF Moderate to severe aortic stenosis Moderate CAD CKD Diabetes Hypertension Hyperlipidemia On exam patient is mildly volume overloaded. Will give 1 dose of 40 mg IV Lasix and closely follow urine output and kidney function. He does have CKD. Echocardiogram has been done. Patient has moderate to severe aortic stenosis. Will get structural heart team involved once patient has recovered this can also be done outpatient. Patient has been hypertensive. On Coreg and lisinopril at home which were held inpatient. We will start 25 mg Toprol daily. Problem List/Past Medical History Ongoing (HFpEF) heart failure with preserved ejection fraction Acute CHF (congestive heart failure) Acute kidney injury superimposed on chronic kidney disease Acute on chronic blood loss anemia Acute on chronic respiratory failure with hypoxia Acute on chronic systolic CHF (congestive heart failure) Anemia in CKD (chronic kidney disease) Anemia, unspecified Aortic stenosis Blister Blood loss anemia BMI 33.0-33.9,adult BMI 34.0-34.9,adult BPH (benign prostatic hyperplasia) CAD (coronary artery disease) Chest congestion Chronic hypoxemic respiratory failure Chronic kidney disease (CKD) CKD (chronic kidney disease) stage 4, GFR 15-29 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 COPD (chronic obstructive pulmonary disease) COPD with acute exacerbation COPD without exacerbation DM type 2, goal HbA1c < 7.5% Dyspnea on minimal exertion Elevated blood uric acid level Elevated liver enzymes Former tobacco use GI bleed GI bleeding Gout Gout flare Has received influenza vaccination in current influenza season Heart failure with preserved ejection fraction History of non-ST elevation myocardial infarction (NSTEMI) History of recent fall Hospital discharge follow-up Hospital discharge follow-up HTN (hypertension) Hypercholesterolemia Hyperkalemia Hyperlipidemia Hypertension associated with type 2 diabetes mellitus Hypothyroidism Ichthyosis vulgaris Limited mobility Medicare annual wellness visit, subsequent Need for influenza vaccination NSTEMI (non-ST elevated myocardial infarction) Obesity (BMI 30-39.9) Oxygen dependent Risk and functional assessment Screening for colon cancer Screening for prostate cancer Shortness of breath at rest Thrombocytopenia Type 2 diabetes mellitus with hemoglobin A1c goal of less than 7.5% Type 2 diabetes mellitus with hyperglycemia Type 2 diabetes mellitus with hyperlipidemia Type 2 diabetes mellitus with stage 4 chronic kidney disease Umbilical hernia Vitamin D deficiency Well adult exam Historical Diabetes mellitus Procedure/Surgical History Echocardiogram: 11/28/22 Cardiac catheterization: 03/15/22 Echocardiogram: 03/12/22 Cataract extraction: 09/29/18 Medications Inpatient atorvastatin, 80 mg= 1 tab(s), Oral, qDay Dextrose 50% IV Push, 12.5 gram(s)= 25 mL, IV Push, AsDirected, PRN heparin 5000 units/mL injection, 5000 unit(s)= 1 mL, Subcutaneous, q8h HumaLOG 100 units/mL subcutaneous solution, Give 0-5 units/dose, Subcutaneous, TIDAC HumaLOG 100 units/mL subcutaneous solution, Give 0-5 units/dose, Subcutaneous, TIDAC Lantus, 10 unit(s)= 0.1 mL, Subcutaneous (INT), acBreakfast Lasix, 40 mg= 1 tab(s), Oral, qDay Home albuterol-ipratropium 2.5 mg-0.5 mg/3 mL inhalation solution, 3 mL, Inhalation, QID, PRN, 1 refills atorvastatin 80 mg oral tablet, 80 mg= 1 tab(s), Oral, qDay, 3 refills Blood Glucose Test Strips, See Instructions, 11 refills carvedilol 3.125 mg oral tablet, 3.125 mg= 1 tab(s), Oral, BID, 1 refills DME MISCellaneous, See Instructions DME MISCellaneous, See Instructions, 11 refills DME MISCellaneous, See Instructions glimepiride 2 mg oral tablet, 2 mg= 1 tab(s), Oral, qDay ipratropium 500 mcg/2.5 mL inhalation solution, 500 mcg= 2.5 mL, Inhalation, QID, 5 refills Jardiance 10 mg oral tablet, 10 mg= 1 tab(s), Oral, qAM, 1 refills liothyronine 25 mcg oral tablet, 25 mcg= 1 tab(s), Oral, qDay, 1 refills lisinopril 10 mg oral tablet, 10 mg= 1 tab(s), Oral, qDay, 5 refills Misc Medication omega-3 fish oil 1000 mg oral capsule, 2000 mg= 2 cap(s), Oral, BID pantoprazole 40 mg oral enteric coated tablet, Refill needed, still taking (AMB only) Spiriva HandiHaler 18 mcg inhalation capsule, 18 mcg= 1 cap(s), Inhalation, qDay, 5 refills torsemide 10 mg oral tablet, 10 mg= 1 tab(s), Oral, qDay, 1 refills Vitamin D3 25 mcg (1000 intl units) oral capsule, 25 mcg= 1 cap(s), Oral, Daily Allergies Valturna (Numbness of hand, Numbness of finger, Numbness) codeine (Stomach problem, Nausea) Social History Smoking Status - 11/13/2017 Former smoker Alcohol - Denies Alcohol Use, 11/13/2017 Use: Past., 11/28/2018 Home/Environment Living situation: Home/Independent., 11/28/2018 Nutrition/Health Caffeine intake amount: 1 servings daily coffee., 12/22/2020 Substance Abuse - Denies Substance Abuse, 11/13/2017 Use: Never., 11/28/2018 Tobacco Nicotine Use: Former smoker, quit more than 30 days ago., 02/27/2019 Family History Breast cancer: Sister. CABG - Coronary artery bypass graft: Mother. CVA - Cerebrovascular accident: Mother and Father. Cancer: Sister and Brother. Diabetes mellitus: Sister. Heart disease: Mother, Father and Sister. Hyperlipidemia: Mother. Hypertension: Mother. [place] - myocardial infarction: Mother. Immunizations pneumococcal 23-valent vaccine(Pneumovax: 0 unknown unit (01/31/16) pneumococcal 23-valent vaccine(Pneumovax: 0 unknown unit (07/31/14) SARS-CoV-2 mRNA (tozinameran) vaccine: 0.3 unknown unit (01/10/21) SARS-CoV-2 mRNA (tozinameran) vaccine: 0.5 unknown unit (06/19/20) SARS-CoV-2 mRNA (tozinameran) vaccine: 0.5 unknown unit (05/25/20) tetanus-diphtheria toxoids: 0 unknown unit (12/09/09) Digitally Signed by CAROL BARAHONA MD on 06/09/2023 01:03 PM [id number] Gastroenterology Consult note Reason for Consultation Anemia Referring Physician Eduardo History of Present Illness This patient is an 83-year-old male with a history of COPD, CHF, chronic kidney disease, diabetes mellitus, coronary artery disease, recurrent issues with GI bleeding, chronic anemia who presents to the hospital with increased work of breathing, weakness, fatigue, noted anemia by his PCP. He is a relatively poor historian though he states that he started having issues with shortness of breath over the course of the past few days. He felt like any kind of exertion was difficult for him. In addition to this, his PCP contacted him and advised ER evaluation with worsening anemia. Most of his care has been up at [facility] or at [facility]. He follows with a footwear sales leader at [facility], Dr. Joy. The patient states that despite his anemia, he has not noted any gross GI bleeding. It appears he had multiple upper endoscopies performed with his primary footwear sales leader over the course of the past few months. 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 This was treated with APC therapy. He had a repeat upper endoscopy in February 2023. He was found to have a gastric ulcer which was apparently oozing blood at that point. This was treated with gold probe. Lastly, he had an upper endoscopy performed in March of this year with complaints of dysphagia. There isno stricture or esophageal abnormality noted though a capsule was placed to further evaluate his anemia. There were no gastric abnormalities at that time. Since arriving, his respiratory status is improved. The intensive care unit is already talking about transferring out of the unit. His BNP was elevated consistent with his CHF, his creatinine was also elevated near his baseline. His hemoglobin was found to be 7.1 this morning. This is trended down from 7.6 on arrival. It sounds like it was 7.0 and his PCP checked his labs recently. He has chronicissues with thrombocytopenia though this is also worsened since arriving. Despite his extensive workup with his primary footwear sales leader he does not recall having a recentcolonoscopy. His daughter who was on the phone with the nurse at the time of my evaluation also states that he had a colonoscopy a couple of years back with Dr. Heller and told that he did not need any additional due to his age. He is receiving a unit of blood at this point. Denies abdominal pain though still seems a bit short of breath on my exam today particularly with long-winded answers he gives for my questions. We are consult further evaluation regarding his anemia. Review of Systems A full 12 point review of systems was conducted and negative unless mentioned in the above HPI. Physical Exam Vitals and Measurements T: 37 C (Oral) TMIN: 36.5 C (Oral) TMAX: 37 C (Oral) HR: 92(Monitored) RR: 24 BP: 165/57 SpO2: 96% HT: 165.1 cm WT: 83.3 kg BMI: 30.56 General: Alert and oriented x3, no acute distress, increased work of breathing with talking HEENT: Extraocular muscles intact, no scleral icterus Cardiovascular: Regular rate and rhythm, no murmurs rubs or gallops Respiratory: Clear to auscultation bilaterally, wheezing at bases Abdomen: Soft, no significant tenderness is palpated throughout the entire abdomen. Good bowel sounds. No rebound or guarding is present Extremities: 2+ pulses at the ankles bilaterally, no significant edema is noted Neuro: No focal deficits, limited neuro exam is unrevealing Rectal: Normal tone, solid brown stool noted Social History Smoking Status - 11/13/2017 Former smoker Alcohol - Denies Alcohol Use, 11/13/2017 Use: Past., 11/28/2018 Home/Environment Living situation: Home/Independent., 11/28/2018 Nutrition/Health Caffeine intake amount: 1 servings daily coffee., 12/22/2020 Substance Abuse - Denies Substance Abuse, 11/13/2017 Use: Never., 11/28/2018 Tobacco Nicotine Use: Former smoker, quit more than 30 days ago., 02/27/2019 Family History Breast cancer: Sister. CABG - Coronary artery bypass graft: Mother. CVA - Cerebrovascular accident: Mother and Father. Cancer: Sister and Brother. Diabetes mellitus: Sister. Heart disease: Mother, Father and Sister. Hyperlipidemia: Mother. Hypertension: Mother. [place] - myocardial infarction: Mother. Assessment/Plan 1. Anemia He has chronic issues with anemia. Appears he had issues with upper GI bleeding which prompted hospitalization a few months back. He has been following closely with a footwear sales leader locally. He believes that the results of his capsule were negative. This most recent upper endoscopy in March was also unrevealing. He has not been using any significant NSAID pain control, has been off his aspirin for quite some time as well. Though he is unclear on his medications, he believes that he has been using his pantoprazole regularly in the home setting. Obviously chronic disease is playing a significant role with this anemia though his acute drop is a bit unclear. Iron studies will be checked, he needs to remain on pantoprazole 40 mg IV twice daily. He is receiving a transfusion at this point. Will continue to monitor H&H. Current respiratory status would preclude endoscopic evaluation unless absolutely necessary. Could consider endoscopic evaluation if anemia remains problematic or does not respond appropriately depending on respiratory status in the coming days. 2. History of peptic ulcer As detailed above, followed locally with his footwear sales leader. PPI therapy twice daily, continue to monitor closely. Likely outpatient follow-up will be important for him moving forward. 3. Shortness of breath Management per primary team. Respiratory status is already even improved since arriving. 4. CHF (congestive heart failure) Management per primary team. States that he is not anticoagulated in the home setting. Orders: Prothrombin Time - Panel Will continue to follow along with you. Please call us with additional questions and concerns moving forward. Problem List/Past Medical History Ongoing (HFpEF) heart failure with preserved ejection fraction Acute CHF (congestive heart failure) Acute kidney injury superimposed on chronic kidney disease Acute on chronic blood loss anemia Acute on chronic respiratory failure with hypoxia Acute on chronic systolic CHF (congestive heart failure) Anemia in CKD (chronic kidney disease) Anemia, unspecified Aortic stenosis Blister Blood loss anemia BMI 33.0-33.9,adult BMI 34.0-34.9,adult BPH (benign prostatic hyperplasia) CAD (coronary artery disease) Chest congestion Chronic hypoxemic respiratory failure Chronic kidney disease (CKD) CKD (chronic kidney disease) stage 4, GFR 15-29 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 COPD (chronic obstructive pulmonary disease) COPD with acute exacerbation COPD without exacerbation DM type 2, goal HbA1c < 7.5% Dyspnea on minimal exertion Elevated blood uric acid level Elevated liver enzymes Former tobacco use GI bleed GI bleeding Gout Gout flare Has received influenza vaccination in current influenza season Heart failure with preserved ejection fraction History of non-ST elevation myocardial infarction (NSTEMI) History of recent fall Hospital discharge follow-up Hospital discharge follow-up HTN (hypertension) Hypercholesterolemia Hyperkalemia Hyperlipidemia Hypertension associated with type 2 diabetes mellitus Hypothyroidism Ichthyosis vulgaris Limited mobility Medicare annual wellness visit, subsequent Need for influenza vaccination NSTEMI (non-ST elevated myocardial infarction) Obesity (BMI 30-39.9) Oxygen dependent Risk and functional assessment Screening for colon cancer Screening for prostate cancer Shortness of breath at rest Thrombocytopenia Type 2 diabetes mellitus with hemoglobin A1c goal of less than 7.5% Type 2 diabetes mellitus with hyperglycemia Type 2 diabetes mellitus with hyperlipidemia Type 2 diabetes mellitus with stage 4 chronic kidney disease Umbilical hernia Vitamin D deficiency Well adult exam Historical Diabetes mellitus Procedure/Surgical History Echocardiogram: 11/28/22 Cardiac catheterization: 03/15/22 Echocardiogram: 03/12/22 Cataract extraction: 09/29/18 Allergies Valturna (Numbness of hand, Numbness of finger, Numbness) codeine (Stomach problem, Nausea) Immunization History pneumococcal 23-valent vaccine(Pneumovax: 0 unknown unit (01/31/16) pneumococcal 23-valent vaccine(Pneumovax: 0 unknown unit (07/31/14) SARS-CoV-2 mRNA (tozinameran) vaccine: 0.3 unknown unit (01/10/21) SARS-CoV-2 mRNA (tozinameran) vaccine: 0.5 unknown unit (06/19/20) SARS-CoV-2 mRNA (tozinameran) vaccine: 0.5 unknown unit (05/25/20) tetanus-diphtheria toxoids: 0 unknown unit (12/09/09) Medications What How Much When Why Instructions Last Dose Unchanged albuterol-ipratropium (albuterol-ipratropium 2.5 mg-0.5 mg/ 3 mL inhalation solution) 3 Milliliter by inhalation Four (4) times a day as needed for as needed for shortness of breath or wheezing COPD with acute exacerbation Use as needed for SOB attacks when ipratropium nebulizer not enough Unchanged atorvastatin (atorvastatin 80 mg oral tablet) 1 tab(s) by mouth Once a day Hyperlipidemia Unchanged carvedilol (carvedilol 3.125 mg oral tablet) 1 tab(s) by mouth Two (2) times a day Unchanged cholecalciferol (Vitamin D3 25 mcg (1000 intl units) oral capsule) 1 cap by mouth Every day Unchanged DME (Blood Glucose Test Strips) See instructions Controlled diabetes mellitus with hyperglycemia Type 2 diabetes mellitus with hemoglobin A1c goal of less than 7.5% One touch ultra blue test strips #60 pt to test twice daily. Unchanged DME (DME MISCellaneous) See instructions Controlled diabetes mellitus with hyperglycemia Type 2 diabetes mellitus with hemoglobin A1c goal of less than 7.5% One touch Delica Lancet 33g, 1 box of 100, testing 2 times daily Unchanged DME (DME MISCellaneous) See instructions Dispense 1 medical alert bracelet/ necklace Unchanged DME (DME MISCellaneous) See instructions Hypoxia Supplemental oxygen dependent Portable oxygen tank and all necessary supplies. Patient needs to use oxygen continuously to keep oxygenation sat greater than 92%. Normally 2 L to 4 L nasal cannula. Dx: MENG with hypoxia, oxygen dependent Unchanged empagliflozin (Jardiance 10 mg oral tablet) 1 tab(s) by mouth Once a day (in the morning) Heart failure with preserved ejection fraction Hypertension associated with type 2 diabetes mellitus Unchanged glimepiride (glimepiride 2 mg oral tablet) 1 tab(s) by mouth Once a day Unchanged ipratropium (ipratropium 500 mcg/ 2.5 mL inhalation solution) 2.5 Milliliter by inhalation Four (4) times a day COPD with acute exacerbation Chronic hypoxemic respiratory failure Duration: 30 Days Unchanged liothyronine (liothyronine 25 mcg oral tablet) 1 tab(s) by mouth Once a day Hypothyroidism Hypothyroidism Duration: 90 Days Unchanged lisinopril (lisinopril 10 mg oral tablet) 1 tab(s) by mouth Once a day Hypertension associated with type 2 diabetes mellitus Unchanged Misc Medication Oxygen 1-3 L/ M via NC Unchanged omega-3 polyunsaturated fatty acids (omega-3 fish oil 1000 mg oral capsule) 2 cap by mouth Two (2) times a day Unchanged pantoprazole (pantoprazole 40 mg oral enteric coated tablet) TAKE ONE TABLET BY MOUTH TWICE A DAY Unchanged tiotropium (Spiriva HandiHaler 18 mcg inhalation capsule) 1 cap by inhalation Once a day COPD without exacerbation COPD with acute exacerbation Duration: 30 Days Restarting medication. Please fill as Spiriva HandiHaler KESHA and discontinue Advair and other Spiriva prescription. Use two inhalations of one capsule for each dose. Please Dispense as Written, Generic is making patient cough. Unchanged torsemide (torsemide 10 mg oral tablet) 1 tab(s) by mouth Once a day Acute on chronic systolic CHF (congestive heart failure) Increased dose Digitally Signed by NAMRATA ESPINO MD on 06/09/2023 01:02 PM [id number]* Exam Date Time Procedure Performing Provider Status 06/09/23 10:04 AM Echocardiogram, Adult - CV Auth (Verified) [facility] 03-30-2024 History and physical note Date of Service 06/08/23 History of Present Illness This patient is an 83-year-old male presenting to the medical intensive care unit for acute hypoxicrespiratory distress secondary to his COPD exacerbation. He has a past medical history of COPD, CHF, CKD, diabetes, CAD, and prior NSTEMI. He was seen by his primary care physician where blood work was done and his hemoglobin was 7.7. He was then told to come to the emergency department for furtherevaluation. He was seen at [facility] for this. Also states that he had been having some shortness of breath. States that he wears 2 L to 3 L via nasal cannula at baseline. States that his shortness of breath is worsened over the last several days. More dyspneic with exertion. While in the emergency department his hemoglobin is noted to be 7.6. No transfusion was performed. No evidence of leukocytosis. No evidence of thrombocytopenia at the time. A CMP shows no significantelectrolyte abnormalities. Shows a creatinine of 2.24. Roughly baseline for this patient. BNP was noted to be 2501. This is also roughly baseline for the patient. Troponin is negative. Delta troponinis negative. Chest x-ray shows no evidence of pneumonia no pneumothoraces per my independent evaluation. Due to them likely mixed COPD and CHF exacerbation was determined that the patient be admitted to the hospital. While in the emergency department, the patient began to decompensate. Showed that he had increased work of breathing and moderate respiratory distress. Is placed on BiPAP. ABG was performed that shows pH of 7.43 with a pO2 147. Shows CO2 of 28. O2 sat of 99. Due to this patient's increased work of breathing and requirement of BiPAP, transferred to the medical intensive care unit for further evaluation. Upon arrival to the medical intensive care unit, the patient was back on his home oxygen at 2 L. Inthe emergency department he did receive multiple DuoNebs as well as Solu-Medrol for his COPD exacerbation. States that he feels at baseline at this time. Has no other complaints. Review of Systems Constitutional: No fever. No chills. No dizziness. No weakness. No weight loss. Eyes: No pain, erythema, or discharge. No blurring of vision. No yellow sclerae Ears, Nose, Throat: No hearing loss, sneezing, congestion, runny nose or sore throat. Cardiovascular: No chest pain, chest pressure or chest discomfort. No palpitations or edema. Respiratory: No shortness of breath, cough, pain with respiration, No hemoptysis. No dyspnea. Gastrointestinal: Normal appetite. No nausea, vomiting, diarrhea. No pain. No bloating. Genitourinary: No frequency, urgency, nocturia. No hematuria or dysuria. Musculoskeletal: No muscle, back pain, joint pain or stiffness. Skin: No swelling. No bruising. No abrasions. Neurological: No headache, dizziness, syncope, paralysis, ataxia, numbness or tingling in the extremities. No change in bowel or bladder control. Psychiatric: No confusion. Physical Exam Vitals and Measurements T: 36.6 C (Oral) HR: 99 RR: 23 BP: 115/87 SpO2: 99% HT: 165.1 cm WT: 83.3 kg BMI: 30.56 Weight Dosing Weight: 83.3 kg (06/08/23) General Appearance: The patient appears well and is in no apparent distress. Eyes: Pupils equal and reactive. Extraocular eye movements are intact. No scleral icterus or conjunctival injection noted. ENT: Head is atraumatic. Posterior oropharynx is unremarkable. Cardiac: Regular rate and rhythm. No significant murmurs, gallops, or rubs Lungs: Breath sounds are equal and clear bilaterally. No significant wheezes, rhonchi, or rales Abdomen: Soft. No mass, tenderness, guarding, or rebound. No organomegaly or hernia. No CVA tenderness. Musculoskeletal: Patient has good range of motion of all extremities. The patient has good distal cap refill. The patient has palpable distal pulses. Neurological: Sensory and motor examination is unremarkable. Skin: Warm, dry, and well perfused. Skin is intact without evidence of significant lacerations or sores. Psychiatric: The patient is awake, alert, and oriented x4. Recent and remote memory is intact. Lab Results No 36 Hour Lab Data Imaging Results and Diagnostics XR Chest 1 View Result Date: June 08, 2023 Verified By: CLINICAL STATEMENT: IMPRESSION: Assessment/Plan Assessment: 1. Acute hypoxic respiratory distress 2. COPD exacerbation 3. CHF exacerbation 4. History of CAD 5. History of CKD 6. History of diabetes 7. History of hyperlipidemia 8. History of hypertension Plan: Neuro: Continue to monitor mental status Cardio: Continue to monitor hemodynamic status Given a dose of Lasix for CHF exacerbation Pulm: Continue to monitor respiratory status Continue home oxygen therapy at 2 L via nasal cannula Continue DuoNebs and Solu-Medrol GI/: Monitor I's and O's GI prophylaxis/diet: Regular diet DVT prophylaxis: SCDs CODE STATUS: Full code Problem List/Past Medical History Ongoing (HFpEF) heart failure with preserved ejection fraction Acute CHF (congestive heart failure) Acute kidney injury superimposed on chronic kidney disease Acute on chronic blood loss anemia Acute on chronic respiratory failure with hypoxia Acute on chronic systolic CHF (congestive heart failure) Anemia in CKD (chronic kidney disease) Anemia, unspecified Aortic stenosis Blister Blood loss anemia BMI 33.0-33.9,adult BMI 34.0-34.9,adult BPH (benign prostatic hyperplasia) CAD (coronary artery disease) Chest congestion Chronic hypoxemic respiratory failure Chronic kidney disease (CKD) CKD (chronic kidney disease) stage 4, GFR 15-29 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 COPD (chronic obstructive pulmonary disease) COPD with acute exacerbation COPD without exacerbation DM type 2, goal HbA1c < 7.5% Dyspnea on minimal exertion Elevated blood uric acid level Elevated liver enzymes Former tobacco use GI bleed GI bleeding Gout Gout flare Has received influenza vaccination in current influenza season Heart failure with preserved ejection fraction History of non-ST elevation myocardial infarction (NSTEMI) History of recent fall Hospital discharge follow-up Hospital discharge follow-up HTN (hypertension) Hypercholesterolemia Hyperkalemia Hyperlipidemia Hypertension associated with type 2 diabetes mellitus Hypothyroidism Ichthyosis vulgaris Limited mobility Medicare annual wellness visit, subsequent Need for influenza vaccination NSTEMI (non-ST elevated myocardial infarction) Obesity (BMI 30-39.9) Oxygen dependent Risk and functional assessment Screening for colon cancer Screening for prostate cancer Shortness of breath at rest Thrombocytopenia Type 2 diabetes mellitus with hemoglobin A1c goal of less than 7.5% Type 2 diabetes mellitus with hyperglycemia Type 2 diabetes mellitus with hyperlipidemia Type 2 diabetes mellitus with stage 4 chronic kidney disease Umbilical hernia Vitamin D deficiency Well adult exam Historical Diabetes mellitus Procedure/Surgical History Echocardiogram: 11/28/22 Cardiac catheterization: 03/15/22 Echocardiogram: 03/12/22 Cataract extraction: 09/29/18 Medications Home Medications (18) Active albuterol-ipratropium 2.5 mg-0.5 mg/3 mL inhalation solution 3 mL, PRN, Inhalation, QID atorvastatin 80 mg oral tablet 80 mg = 1 tab(s), Oral, qDay Blood Glucose Test Strips See Instructions carvedilol 3.125 mg oral tablet 3.125 mg = 1 tab(s), Oral, BID DME MISCellaneous See Instructions DME MISCellaneous See Instructions DME MISCellaneous See Instructions glimepiride 2 mg oral tablet 2 mg = 1 tab(s), Oral, qDay ipratropium 500 mcg/2.5 mL inhalation solution 500 mcg = 2.5 mL, Inhalation, QID Jardiance 10 mg oral tablet 10 mg = 1 tab(s), Oral, qAM liothyronine 25 mcg oral tablet 25 mcg = 1 tab(s), Oral, qDay lisinopril 10 mg oral tablet 10 mg = 1 tab(s), Oral, qDay Misc Medication omega-3 fish oil 1000 mg oral capsule 2,000 mg = 2 cap(s), Oral, BID pantoprazole 40 mg oral enteric coated tablet Spiriva HandiHaler 18 mcg inhalation capsule 18 mcg = 1 cap(s), Inhalation, qDay torsemide 10 mg oral tablet 10 mg = 1 tab(s), Oral, qDay Vitamin D3 25 mcg (1000 intl units) oral capsule 25 mcg = 1 cap(s), Oral, Daily Allergies Valturna (Numbness of hand, Numbness of finger, Numbness) codeine (Stomach problem, Nausea) Social History Smoking Status - 11/13/2017 Former smoker Alcohol - Denies Alcohol Use, 11/13/2017 Use: Past., 11/28/2018 Home/Environment Living situation: Home/Independent., 11/28/2018 Nutrition/Health Caffeine intake amount: 1 servings daily coffee., 12/22/2020 Substance Abuse - Denies Substance Abuse, 11/13/2017 Use: Never., 11/28/2018 Tobacco Nicotine Use: Former smoker, quit more than 30 days ago., 02/27/2019 Family History Breast cancer: Sister. CABG - Coronary artery bypass graft: Mother. CVA - Cerebrovascular accident: Mother and Father. Cancer: Sister and Brother. Diabetes mellitus: Sister. Heart disease: Mother, Father and Sister. Hyperlipidemia: Mother. Hypertension: Mother. [place] - myocardial infarction: Mother. Immunizations pneumococcal 23-valent vaccine(Pneumovax: 0 unknown unit (01/31/16) pneumococcal 23-valent vaccine(Pneumovax: 0 unknown unit (07/31/14) SARS-CoV-2 mRNA (tozinameran) vaccine: 0.3 unknown unit (01/10/21) SARS-CoV-2 mRNA (tozinameran) vaccine: 0.5 unknown unit (06/19/20) SARS-CoV-2 mRNA (tozinameran) vaccine: 0.5 unknown unit (05/25/20) tetanus-diphtheria toxoids: 0 unknown unit (12/09/09) Code Status Code Status - Ordered -- 06/08/23 23:20:00 EDT, Full Code, Constant Order Digitally Signed by CINDY LEWIS MD on 06/09/2023 12:53 AM Digitally Signed by AHMET CLARK MD [id number] Note ORIGINAL EXAMINATION: ONE XRAY VIEW OF THE CHEST06/08/2023 11:44 pm COMPARISON: Chest radiograph 06/08/2023 HISTORY: ORDERING SYSTEM PROVIDED HISTORY: Reason for Exam: Chest Pain FINDINGS: Stable cardiomediastinal silhouette. Atherosclerotic aorta. Streaky bibasilar atelectasis versus infiltrate. No significant pulmonary vascular congestion. No pneumothorax. Blunting of the costophrenic angles bilaterally may represent small pleural effusions or pleural thickening. No acute osseous abnormalities. Degenerative changes of the spine. IMPRESSION: Streaky bibasilar atelectasis versus infiltrate. Blunting of the costophrenic angles may represent small pleural effusions or pleural thickening. I have personally reviewed the images and agree with the resident's findings and interpretation. Interpreted by: Dax Goodwin Preliminary Report By: Noel Power Electronically signed By Dax Goodwin Dictated Date: 06/08/2023 11:49:01 PM Prelim Date: 06/08/2023 11:51:11 PM Sign Date: 06/09/2023 12:03:08 AM Ordering Provider: CINDY LEWISMag[facility] [id number] Note ORIGINAL EXAMINATION: ONE XRAY VIEW OF THE CHEST06/08/2023 2:24 pm COMPARISON: 05/25/2023 HISTORY: ORDERING SYSTEM PROVIDED HISTORY: Reason for Exam: chest pain FINDINGS: Cardiomegaly. Vascular structures appear within normal limits. There is likely bibasilar atelectasis. No pneumothorax. Small pleural effusions not excluded. Small nodular density projecting at the right diaphragm levels approximately 1 cm. No aggressive osseous lesions identified.Degenerative changes seen of the spine. IMPRESSION: Right lower lung nodule versus summation artifact. Routine follow-up CT thorax advised Probable bibasilar atelectasis. There is either bilateral pleural thickening or small pleural effusions Interpreted by: Shahid Pond MD Preliminary Report By: Shahid Pond MD Electronically signed By Shahid Pond MD Dictated Date: 06/08/2023 2:29:32 PM Prelim Date: 06/08/2023 2:31:11 PM Sign Date: 06/08/2023 2:31:11 PM Ordering Provider: [facility] NoteSinus rhythm Prolonged WA interval Abnormal R-wave progression, early transition LVH with secondary repolarization abnormality Electronic Signature: KIRSTY GROSS MD 06/08/2023 15:54:28[facility] 03-15-2024 Hospital Discharge instructions Patient Education 05/25/2023 17:38:57 COPD Flare COPD Flare You have had a flare-up of your COPD. COPD (chronic obstructive pulmonary disease) is a common lung disease. It causes your airways to get irritated and narrower. This makes it harder for you to breathe. Emphysema and chronic bronchitis are both types of COPD. This is a long-term (chronic) condition. This means you always have it. Sometimes it gets worse. When this happens, it is called a flare-up. Symptoms of COPD People with COPD may have symptoms most of the time. In a flare-up, your symptoms get worse. These symptoms may mean you are having a flare-up: Shortness of breath, shallow or rapid breathing, or wheezing that gets worse Lung infection Cough that gets worse More mucus, thicker mucus or mucus of a different color Tiredness, less energy, or trouble doing your normal activities Fever Chest tightness Your symptoms don t get better even when you use your normal medicines, inhalers, and nebulizer Trouble talking You feel confused Causes of flare-ups Unfortunately, a flare-up can happen even if you did everything right. And even if you followed your healthcare provider s instructions. Some causes of flare- ups are: Smoking or secondhand smoke Colds, the flu, or respiratory infections Air pollution Sudden change in the weather Dust, irritating chemicals, or strong fumes Not taking your medicines as prescribed Home care Here are some things you can do at home to treat a flare-up: Try not to panic. This makes it harder to breathe, and keeps you from doing the right things. Don t smoke or be around others who are smoking. Try to drink more fluids than normal during a flare-up, unless your healthcare provider has told you not to because of heart and kidney problems. More fluids can help loosen the mucus. Use your inhalers and nebulizer, if you have one, as you have been told to. If you were given antibiotics, take them until they are used up or your provider tells you to stop.It s important to finish the antibiotics, even though you feel better. This will make sure the infection has cleared. If you were given prednisone or another steroid, finish it even if you feel better. Preventing a flare-up Flare-ups happen. But the best way to treat one is to prevent it before it starts. Here are some pointers: Don t smoke or be around others who are smoking. Take your medicines as discussed with your healthcare provider. Talk with your provider about getting a flu shot every year. Also find out if you need a pneumonia shot. If there is a weather advisory warning to stay indoors, try to stay inside when possible. Try to eat healthy, exercise, and get plenty of sleep. Try to stay away from things that normally set you off. These include dust, chemical fumes, hairsprays, or strong perfumes. Follow-up care Follow up with your healthcare provider, or as advised. If a culture was done, you will be told if your treatment needs to be changed. You can call as directed for the results. If X-rays were done, you will be told of any new findings that may affect your care. Call 911 Call 911 if any of these occur: You have trouble breathing You feel confused or it s hard to wake you up You faint or lose consciousness You have a rapid heart rate You have new pain in your chest, arm, shoulder, neck, or upper back When to seek medical advice Call your healthcare provider right away if any of these occur: Wheezing or shortness of breath gets worse You need to use your inhalers more often than normal without relief Fever of 100.4 F (38 C) or higher, or as directed by your healthcare provider Coughing up lots of dark-colored or bloody mucus (sputum) Chest pain with each breath You don't start to get better within 24 hours Swelling of your ankles gets worse Dizziness or weakness [id number] [employer]. [address] [place] [address], [place] [address]. All rights reserved. This information is not intended as a substitute for professional medical care. Always follow yourhealthcare professional's instructions. Follow Up Care 05/25/2023 14:51:34 With:TALYA NICHOLS DO Address: [address] [place] [address] [place] [phone] When:2-4 days [facility] 03-15-2024 Note Discharge Instructions Thank you for allowing [facility] to assist you with your healthcare needs. The following is importantdischarge information regarding your hospital visit. Diagnosis from Today's Visit CHF exacerbation COPD exacerbation SOB - Shortness of breath What to Do Next Instructions from Your Care Team No qualifying data available. Post Acute Orders No qualifying data available. You Need to Schedule the Following Appointments Follow Up with TALYA NICHOLS DO When Within 2-4 days Where: [address] [facility] [place] [phone] Allergies Valturna (Numbness of hand, Numbness of finger, Numbness) codeine (Stomach problem, Nausea) Medications Please ask your primary doctor or pharmacist before taking any other medication not listed, including over the counter drugs, herbal medications, vitamins and or supplements as they may interact withyour home medications. What How Much When Why Instructions Last Dose Changed predniSONE (prednisone 10mg tab (TAPER)) Taper 40-20-10 mg x 2 days each dose by mouth Every day Duration: 6 Days Changed predniSONE (predniSONE 20 mg oral tablet) 2 tab(s) by mouth Two (2) times a day Duration: 5 Days Printed Prescription Unchanged atorvastatin (atorvastatin 80 mg oral tablet) 1 tab(s) by mouth Once a day Hyperlipidemia Unchanged carvedilol (carvedilol 3.125 mg oral tablet) 1 tab(s) by mouth Two (2) times a day Unchanged cholecalciferol (Vitamin D3 25 mcg (1000 intl units) oral capsule) 1 cap by mouth Every day Unchanged DME (Blood Glucose Test Strips) See instructions Controlled diabetes mellitus with hyperglycemia Type 2 diabetes mellitus with hemoglobin A1c goal of less than 7.5% One touch ultra blue test strips #60 pt to test twice daily. Unchanged DME (DME MISCellaneous) See instructions Controlled diabetes mellitus with hyperglycemia Type 2 diabetes mellitus with hemoglobin A1c goal of less than 7.5% One touch Delica Lancet 33g, 1 box of 100, testing 2 times daily Unchanged DME (DME MISCellaneous) See instructions Dispense 1 medical alert bracelet/ necklace Unchanged DME (DME MISCellaneous) See instructions Hypoxia Supplemental oxygen dependent Portable oxygen tank and all necessary supplies. Patient needs to use oxygen continuously to keep oxygenation sat greater than 92%. Normally 2 L to 4 L nasal cannula. Dx: MENG with hypoxia, oxygen dependent Unchanged empagliflozin (Jardiance 10 mg oral tablet) 1 tab(s) by mouth Once a day (in the morning) Type 2 diabetes mellitus with hemoglobin A1c goal of less than 7.5% Acute on chronic systolic CHF (congestive heart failure) Unchanged ipratropium (ipratropium 500 mcg/ 2.5 mL inhalation solution) 2.5 Milliliter by inhalation Four (4) times a day COPD with acute exacerbation Chronic hypoxemic respiratory failure Duration: 30 Days Unchanged liothyronine (liothyronine 25 mcg oral tablet) 1 tab(s) by mouth Once a day Hypothyroidism Hypothyroidism Duration: 90 Days Unchanged lisinopril (lisinopril 10 mg oral tablet) 1 tab(s) by mouth Once a day Hypertension associated with type 2 diabetes mellitus Unchanged Misc Medication Oxygen 1-3 L/ M via NC Unchanged multivitamin with minerals (PreserVision AREDS 2) 1 tab(s) by mouth Two (2) times a day Unchanged omega-3 polyunsaturated fatty acids (omega-3 fish oil 1000 mg oral capsule) 2 cap by mouth Two (2) times a day Unchanged pantoprazole (pantoprazole 40 mg oral enteric coated tablet) TAKE ONE TABLET BY MOUTH TWICE A DAY Unchanged sucralfate (sucralfate 1 g oral tablet) 1 tab(s) by mouth Two (2) times a day Unchanged tiotropium (Spiriva HandiHaler 18 mcg inhalation capsule) 1 cap by inhalation Once a day COPD without exacerbation COPD with acute exacerbation Duration: 30 Days Restarting medication. Please fill as Spiriva HandiHaler KESHA and discontinue Advair and other Spiriva prescription. Use two inhalations of one capsule for each dose. Please Dispense as Written, Generic is making patient cough. Unchanged torsemide (torsemide 5 mg oral tablet) 1 tab(s) by mouth Every day Acute on chronic systolic CHF (congestive heart failure) Please take this list to your next doctor s visit. Bring all medications you take, including over the counter medications, herbals and other supplements with you to your doctor s visit. Patients and families are reminded to discard old lists and to update any records with all medication providers or retail pharmacies. Education Materials COPD Flare You have had a flare-up of your COPD. COPD (chronic obstructive pulmonary disease) is a common lung disease. It causes your airways to get irritated and narrower. This makes it harder for you to breathe. Emphysema and chronic bronchitis are both types of COPD. This is a long-term (chronic) condition. This means you always have it. Sometimes it gets worse. When this happens, it is called a flare-up. Symptoms of COPD People with COPD may have symptoms most of the time. In a flare-up, your symptoms get worse. These symptoms may mean you are having a flare-up: Shortness of breath, shallow or rapid breathing, or wheezing that gets worse Lung infection Cough that gets worse More mucus, thicker mucus or mucus of a different color Tiredness, less energy, or trouble doing your normal activities Fever Chest tightness Your symptoms don t get better even when you use your normal medicines, inhalers, and nebulizer Trouble talking You feel confused Causes of flare-ups Unfortunately, a flare-up can happen even if you did everything right. And even if you followed your healthcare provider s instructions. Some causes of flare- ups are: Smoking or secondhand smoke Colds, the flu, or respiratory infections Air pollution Sudden change in the weather Dust, irritating chemicals, or strong fumes Not taking your medicines as prescribed Home care Here are some things you can do at home to treat a flare-up: Try not to panic. This makes it harder to breathe, and keeps you from doing the right things. Don t smoke or be around others who are smoking. Try to drink more fluids than normal during a flare-up, unless your healthcare provider has told you not to because of heart and kidney problems. More fluids can help loosen the mucus. Use your inhalers and nebulizer, if you have one, as you have been told to. If you were given antibiotics, take them until they are used up or your provider tells you to stop.It s important to finish the antibiotics, even though you feel better. This will make sure the infection has cleared. If you were given prednisone or another steroid, finish it even if you feel better. Preventing a flare-up Flare-ups happen. But the best way to treat one is to prevent it before it starts. Here are some pointers: Don t smoke or be around others who are smoking. Take your medicines as discussed with your healthcare provider. Talk with your provider about getting a flu shot every year. Also find out if you need a pneumonia shot. If there is a weather advisory warning to stay indoors, try to stay inside when possible. Try to eat healthy, exercise, and get plenty of sleep. Try to stay away from things that normally set you off. These include dust, chemical fumes, hairsprays, or strong perfumes. Follow-up care Follow up with your healthcare provider, or as advised. If a culture was done, you will be told if your treatment needs to be changed. You can call as directed for the results. If X-rays were done, you will be told of any new findings that may affect your care. Call 911 Call 911 if any of these occur: You have trouble breathing You feel confused or it s hard to wake you up You faint or lose consciousness You have a rapid heart rate You have new pain in your chest, arm, shoulder, neck, or upper back When to seek medical advice Call your healthcare provider right away if any of these occur: Wheezing or shortness of breath gets worse You need to use your inhalers more often than normal without relief Fever of 100.4 F (38 C) or higher, or as directed by your healthcare provider Coughing up lots of dark-colored or bloody mucus (sputum) Chest pain with each breath You don't start to get better within 24 hours Swelling of your ankles gets worse Dizziness or weakness [phone] [employer]. [address] [place] [address]. All rights reserved. This information is not intended as a substitute for professional medical care. Always follow yourhealthcare professional's instructions. Additional Information VACCINATE! IT SAVES LIVES! Members of the community who have not yet received the COVID-19 vaccine and would like to receive it can visit one of [facility] vaccine clinics. There are many vaccine clinic locations within the [facility]. For locations and available times, please visit [email or web address]/. It is important to note that some COVID mobile vaccine clinics are held outdoors and may be canceled in rainy or stormy conditions. To learn more about pediatric vaccinations (ages 5-11), we invite you to visit the [facility] webpage. [email or web address] learn more about the COVID-19 vaccine, we invite you to visit the CDC website for a list of frequently asked questions. https://www.cdc.gov/coronavirus/2019-ncov/vaccines/faq.html [facility] Patient Portal Access Instructions: Stay connected with your healthcare team and access your personal medical information anytime with the [facility] Patient Portal. If you would like a full copy of your medical records please contact the [facility] Medical Records Department Sunday through Sunday between 8a.m. and 4:30p.m. Please follow the directions below to access the portal: 1.Access the email account you provided upon registration to the [facility].2.Look for an invitation email from [facility].3.Open the email and access the invitation link: Accept Invitation to [facility]4.Fill in the required hollis to create your account. Sign into [email or web address] with your username and password that you created in the above steps to stay up to date. You can then view a summary of results, a summary of your visits, and the ability to download your summaries to your computer or send the information securely to a physician. Remember that your healthcare information is confidential, so carefully consider who you will allow to register on the [facility] Patient Portal for access to your information. You can also access the [facility] Patient Portal on the [email or web address] erika. Simply click on Health Records under HealthData and then click on the [employer] logo. HOW TO SAFELY DISPOSE OF PRESCRIPTION MEDICATIONS Please use one of the following methods to safely dispose of your unused medications. 1.Use a drug disposal kit: the drug disposal pouch allows you to safely discard your old and unuseddrugs. Ask your nurse to give you one when you are discharged.2.Visit a local take-back location: Many local pharmacies and police departments have programs that collect old and unwanted prescriptiondrugs. Call your local pharmacy or go to http://bit.ly/9Y9Ob3f to find one close to you.3.Make use of household items: Use cat litter or old coffee grounds to dispose medications if other options arenot available. Mix your drugs with these household products, seal them in an airtight container andthrow it into the garbage. Call [facility]: [phone] to be sure your drugs can be disposed of in this way. Some medicines may require a different approach.4.Never flush your medications down the toilet. IF YOU HAVE BEEN PRESCRIBED AN OPIOIDS FOR PAIN If you have been prescribed an opioid (such as hydrocodone, oxycodone or morphine), it is critical to understand the possible side effects and risks of opioid pain medications. Even when taken as directed, opioids can have several side effects including: Tolerance, meaning you might need to take more of a medication for the same pain relief. Nausea, vomiting and/or constipation. Sleepiness, dizziness, dry mouth, confusion, depression or itching. Physical dependence, meaning you have withdrawal symptoms when a medication is stopped ? this can develop within a few days. KNOW YOUR RESPONSIBILITIES It is important to know exactly how much and how often to take the opioid pain medications you are prescribed. Never take opioids in higher amounts or more often than prescribed. Do not combine opioids with alcohol or other drugs that cause drowsiness, such as benzodiazepines, also known as benzos,including diazepam and alprazolam, muscle relaxants or sleep aids. Never sell or share prescriptionopioids. This is illegal. Store opioids in a secure place and out of reach of others (including children, family, friends and visitors). The last page(s) of this document has been signed and retained as a CHART COPY Signatures Patient Education Materials COPD Flare Medication Leaflets My discharge plan and instructions have been reviewed and explained to me and I,BEULAH BRIGHT understand my current condition and have read and understand these discharge instructions. I have received a written copy of the plan/instructions. If I have questions, I am aware that I should contact my doctor. 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 There is some mild vascular congestion. Mild interstitial prominence is noted in the lung bases. There is mild bibasilar airspace disease. There are probably small bilateral pleural effusions. No pneumothorax. No acute osseous abnormality. IMPRESSION: Mild vascular congestion and interstitial prominence may indicate interstitial edema. Mild bibasilar airspace disease with questioned small pleural effusions. Interpreted by: Erika Esquivel MD Preliminary Report By: Erika Esquivel MD Electronically signed By Erika Esquivel MD Dictated Date: 05/25/2023 3:44:09 PM Prelim Date: 05/25/2023 3:46:57 PM Sign Date: 05/25/2023 3:46:57 PM [facility]ing [facility] NoteSinus rhythm Prolonged WA interval LVH with secondary repolarization abnormality Anterior Q waves, possibly due to LVH Electronic Signature: ANNY DA SILVA MD 05/25/2023 15:32:43[facility] 02-27-2024 Hospital Discharge instructions Patient Education 05/08/2023 14:54:50 Heart Failure Exacerbation Heart Failure Exacerbation Heart failure is a condition in which the heart does not fill up with enough blood, and therefore does not pump enough blood and oxygen to the body. When this happens, parts of the body do not get the blood and oxygen they need to function properly. This can cause symptoms such as breathing problems, fatigue, swelling, and confusion. Heart failure exacerbation refers to heart failure symptoms that get worse. The symptoms may get worse suddenly or develop slowly over time. Heart failure exacerbation is a serious medical problem that should be treated right away. What are the causes? A heart failure exacerbation can be triggered by: Not taking your heart failure medicines correctly. Infections. Eating an unhealthy diet or a diet that is high in salt (sodium). Drinking too much fluid. Drinking alcohol. Taking illegal drugs, such as cocaine or methamphetamine. Not exercising. Other causes include: Other heart conditions such as an irregular heartbeat (arrhythmia). Anemia. Other medical problems, such as kidney failure. Sometimes the cause of the exacerbation is not known. What are the signs or symptoms? When heart failure symptoms suddenly or slowly get worse, this may be a sign of heart failure exacerbation. Symptoms of heart failure include: Breathing problems or shortness of breath. Chronic coughing or wheezing. Fatigue. Nausea or lack of appetite. Feeling light-headed. Confusion or memory loss. Increased heart rate or irregular heartbeat. Buildup of fluid in the legs, ankles, feet, or abdomen. Difficulty breathing when lying down. How is this diagnosed? This condition is diagnosed based on: Your symptoms and medical history. A physical exam. You may also have tests, including: Electrocardiogram (ECG). This test measures the electrical activity of your heart. Echocardiogram. This test uses sound waves to take a picture of your heart to see how well it works. Blood tests. Imaging tests, such as: ?Chest X-ray. ?MRI. ?Ultrasound. Stress test. This test examines how well your heart functions when you exercise. Your heart is monitored while you exercise on a treadmill or exercise bike. If you cannot exercise, medicines may be used to increase your heartbeat in place of exercise. Cardiac catheterization. During this test, a thin, flexible tube (catheter) is inserted into a blood vessel and threaded up to your heart. This test allows your health care provider to check the arteries that lead to your heart (coronary arteries). Right heart catheterization. During this test, the pressure in your heart is measured. How is this treated? This condition may be treated by: Adjusting your heart medicines. Maintaining a healthy lifestyle. This includes: ?Eating a heart-healthy diet that is low in sodium. ?Not using any products that contain nicotine or tobacco, such as cigarettes and e-cigarettes. ?Regular exercise. ?Monitoring your fluid intake. ?Monitoring your weight and reporting changes to your health care provider. Treating sleep apnea, if you have this condition. Surgery. This may include: ?Implanting a device that helps both sides of your heart contract at the same time (cardiac resynchronization therapy device). This can help with heart function and relieve heart failure symptoms. ?Implanting a device that can correct heart rhythm problems (implantable cardioverter defibrillator). ?Connecting a device to your heart to help it pump blood (ventricular assist device). ?Heart transplant. Follow these instructions at home: Medicines Take [id number] and prescription medicines only as told by your health care provider. Do not stop taking your medicines or change the amount you take. If you are having problems or sideeffects from your medicines, talk to your health care provider. If you are having difficulty paying for your medicines, contact a social work msw or your clinic. There are many programs to assist with medicine costs. Talk to your health care provider before starting any new medicines or supplements. Make sure your health care provider and pharmacist have a list of all the medicines you are taking. Eating and drinking Avoid drinking alcohol. Eat a heart-healthy diet as told by your health care provider. This includes: ?Plenty of fruits and vegetables. ?Lean proteins. ?Low-fat dairy. ?Whole grains. ?Foods that are low in sodium. Activity Exercise regularly as told by your health care provider. Balance exercise with rest. Ask your health care provider what activities are safe for you. This includes sexual activity, exercise, and daily tasks at home or work. Lifestyle Do not use any products that contain nicotine or tobacco, such as cigarettes and e-cigarettes. If you need help quitting, ask your health care provider. Maintain a healthy weight. Ask your health care provider what weight is healthy for you. Consider joining a patient support group. This can help with emotional problems you may have, such as stress and anxiety. General instructions Talk to your health care provider about flu and pneumonia vaccines. Keep a list of medicines that you are taking. This may help in emergency situations. Keep all follow-up visits as told by your health care provider. This is important. Contact a health care provider if: You have questions about your medicines or you miss a dose. You feel anxious, depressed, or stressed. You have swelling in your feet, ankles, legs, or abdomen. You have shortness of breath during activity or exercise. You have a cough. You have a fever. You have trouble sleeping. You gain 2 3 lb (1 1.4 kg) in 24 hours or 5 lb (2.3 kg) in a week. Get help right away if: You have chest pain. You have shortness of breath while resting. You have severe fatigue. You are confused. You have severe dizziness. You have a rapid or irregular heartbeat. You have nausea or you vomit. You have a cough that is worse at night or you cannot lie flat. You have a cough that will not go away. You have severe depression or sadness. Summary When heart failure symptoms get worse, it is called heart failure exacerbation. Common causes of this condition include taking medicines incorrectly, infections, and drinking alcohol. This condition may be treated by adjusting medicines, maintaining a healthy lifestyle, or surgery. Do not stop taking your medicines or change the amount you take. If you are having problems or sideeffects from your medicines, talk to your health care provider. This information is not intended to replace advice given to you by your health care provider. Make sure you discuss any questions you have with your health care provider. Document Released: 07/10/2017 Document Revised: 02/08/2018 Document Reviewed: 07/10/2017 [employer] Patient Education 2020 [employer]. 05/08/2023 14:54:37 Chronic Obstructive Pulmonary Disease Exacerbation Chronic Obstructive Pulmonary Disease Exacerbation Chronic obstructive pulmonary disease (COPD) is a long-term (chronic) condition that affects the lungs. COPD is a general term that can be used to describe many different lung problems that cause lung swelling (inflammation) and limit airflow, including chronic bronchitis and emphysema. COPD exacerbations are episodes when breathing symptoms become much worse and require extra treatment. COPD exacerbations are usually caused by infections. Without treatment, COPD exacerbations can be severe and even life threatening. Frequent COPD exacerbations can cause further damage to the lungs. What are the causes? This condition may be caused by: Respiratory infections, including viral and bacterial infections. Exposure to smoke. Exposure to air pollution, chemical fumes, or dust. Things that give you an allergic reaction (allergens). Not taking your usual COPD medicines as directed. Underlying medical problems, such as congestive heart failure or infections not involving the lungs. In many cases, the cause (trigger) of this condition is not known. What increases the risk? The following factors may make you more likely to develop this condition: Smoking cigarettes. Old age. Frequent prior COPD exacerbations. What are the signs or symptoms? Symptoms of this condition include: Increased coughing. Increased production of mucus from your lungs (sputum). Increased wheezing. Increased shortness of breath. Rapid or labored breathing. Chest tightness. Less energy than usual. Sleep disruption from symptoms. Confusion or increased sleepiness. Often these symptoms happen or get worse even with the use of medicines. How is this diagnosed? This condition is diagnosed based on: Your medical history. A physical exam. You may also have tests, including: A chest X-ray. Blood tests. Lung (pulmonary) function tests. How is this treated? Treatment for this condition depends on the severity and cause of the symptoms. You may need to be admitted to a hospital for treatment. Some of the treatments commonly used to treat COPD exacerbations are: Antibiotic medicines. These may be used for severe exacerbations caused by a lung infection, such as pneumonia. Bronchodilators. These are inhaled medicines that expand the air passages and allow increased airflow. Steroid medicines. These act to reduce inflammation in the airways. They may be given with an inhaler, taken by mouth, or given through an IV tube inserted into one of your veins. Supplemental oxygen therapy. Airway clearing techniques, such as noninvasive ventilation (NIV) and positive expiratory pressure (PEP). These provide respiratory support through a mask or other noninvasive device. An example of this would be using a continuous positive airway pressure (CPAP) machine to improve delivery of oxygen into your lungs. Follow these instructions at home: Medicines Take wifj-irj-skvwewk and prescription medicines only as told by your health care provider. It is important to use correct technique with inhaled medicines. If you were prescribed an antibiotic medicine or oral steroid, take it as told by your health care provider. Do not stop taking the medicine even if you start to feel better. Lifestyle Eat a healthy diet. Exercise regularly. Get plenty of sleep. Avoid exposure to all substances that irritate the airway, especially to tobacco smoke. Wash your hands often with soap and water to reduce the risk of infection. If soap and water are not available, use hand service unit operator oil well. During flu season, avoid enclosed spaces that are crowded with people. General instructions Drink enough fluid to keep your urine clear or pale yellow (unless you have a medical condition that requires fluid restriction). Use a cool mist vaporizer. This humidifies the air and makes it easier for you to clear your chest when you cough. If you have a home nebulizer and oxygen, continue to use them as told by your health care provider. Keep all follow-up visits as told by your health care provider. This is important. How is this prevented? Stay up-to-date on pneumococcal and influenza (flu) vaccines. A flu shot is recommended every year to help prevent exacerbations. Do not use any products that contain nicotine or tobacco, such as cigarettes and e-cigarettes. Quitting smoking is very important in preventing COPD from getting worse and in preventing exacerbationsfrom happening as often. If you need help quitting, ask your health care provider. Follow all instructions for pulmonary rehabilitation after a recent exacerbation. This can help prevent future exacerbations. Work with your health care provider to develop and follow an action plan. This tells you what stepsto take when you experience certain symptoms. Contact a health care provider if: You have a worsening of your regular COPD symptoms. Get help right away if: You have worsening shortness of breath, even when resting. You have trouble talking. You have severe chest pain. You cough up blood. You have a fever. You have weakness, vomit repeatedly, or faint. You feel confused. You are not able to sleep because of your symptoms. You have trouble doing daily activities. Summary COPD exacerbations are episodes when breathing symptoms become much worse and require extra treatment above your normal treatment. Exacerbations can be severe and even life threatening. Frequent COPD exacerbations can cause further damage to your lungs. COPD exacerbations are usually triggered by infections such as the flu, colds, and even pneumonia. Treatment for this condition depends on the severity and cause of the symptoms. You may need to be admitted to a hospital for treatment. Quitting smoking is very important to prevent COPD from getting worse and to prevent exacerbations from happening as often. This information is not intended to replace advice given to you by your health care provider. Make sure you discuss any questions you have with your health care provider. Document Released: 12/24/2007 Document Revised: 02/08/2018 Document Reviewed: 04/02/2017 [employer] Patient Education 2020 [employer]. Follow Up Care 05/07/2023 09:41:27 With:TALYA NICHOLS DO Address: [address] [place] [address]- [phone] When:05/11/2023 12:30:00 Comments:This appointment can serve as your post-hospital follow-up appointment. [facility] 02-27-2024 Note Discharge Instructions Thank you for allowing [facility] to assist you with your healthcare needs. The following is importantdischarge information regarding your hospital visit. Your Care Team Delia Jefferson CNP Your Diagnosis CKD stage 3 secondary to diabetes COPD with acute exacerbation Heart failure with preserved ejection fraction HTN (hypertension) Hypothyroidism Type 2 diabetes mellitus with hyperlipidemia What to do next Instructions From Your Doctor You were admitted yesterday due to shortness of breath from a possible COPD exacerbation combined with CHF exacerbation. You stated that you always feel better when you are on torsemide over the furosemide, however, were taken off the torsemide because of gout. I have researched the topic and it seems to make no difference which loop diuretic you are on as any of them can cause a gout flare. I confirmed this with our pharmacist also. We restarted torsemide this morning and you state you alreadyfeel better and sound much better. Your oxygen saturations have been upper 90's on your 2L. We alsohad therapy work with you and they felt that you had no therapy needs at home. We will discharge you today. Please follow-up with your PCP in the next week or so. We can only send in a prescription for torsemide for 30 days so they will need to renew this prescription. Please stop the furosemide. If you have any new or worsening problems, please call your PCP or return to the ED. Scheduled Follow-Up Appointments Appointment Type When With Where Contact InformationPC Hospital Follow-Up 05/11/2023 12:30 PM EST TALYA NICHOLS DO [address] [phone] Follow Up Appointments Follow Up with TALYA NICHOLS DO When 05/11/2023 12:30 PM EST Why: This appointment can serve as your post-hospital follow-up appointment. Where: [address] [place] [phone] The Following Activity and Diet Have Been Ordered for You Discharge Activity - Ordered -- Resume your pre-hospitalization activity, 05/08/23 15:20:00 EST Discharge Diet - Ordered -- No changes were made to your diet during your hospital stay. Please resume your pre hospitalization diet on discharge., 05/08/23 15:20:00 EST The Following Treatments Have Been Ordered for You Discharge Labs No qualifying data available. Discharge Radiology No qualifying data available. Other Therapies No qualifying data available. Post Acute Orders No qualifying data available. Allergies Valturna (Numbness of hand, Numbness of finger, Numbness) codeine (Stomach problem, Nausea) Medications Please ask your primary doctor or pharmacist before taking any other medication not listed, including over the counter drugs, herbal medications, vitamins and or supplements as they may interact withyour home medications. What How Much When Why Instructions Last Dose New predniSONE (prednisone 10mg tab (TAPER)) Taper 40-20-10 mg x 2 days each dose by mouth Every day Duration: 6 Days Pickup at [facility] #23037 New torsemide (torsemide 5 mg oral tablet) 1 tab(s) by mouth Every day Pickup at [facility] #[id number] Changed empagliflozin (Jardiance 10 mg oral tablet) 1 tab(s) by mouth Once a day (in the morning) Unchanged albuterol-ipratropium (albuterol-ipratropium 2.5 mg-0.5 mg/ 3 mL inhalation solution) 3 Milliliter Nebulized inhalation Four (4) times a day COPD (chronic obstructive pulmonary disease) Oxygen dependent 1 EA = 1 box. 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 Unchanged DME (DME MISCellaneous) See instructions Controlled diabetes mellitus with hyperglycemia Type 2 diabetes mellitus with hemoglobin A1c goal of less than 7.5% One touch Delica Lancet 33g, 1 box of 100, testing 2 times daily Unchanged DME (DME MISCellaneous) See instructions Dispense 1 medical alert bracelet/ necklace Unchanged DME (DME MISCellaneous) See instructions Hypoxia Supplemental oxygen dependent Portable oxygen tank and all necessary supplies. Patient needs to use oxygen continuously to keep oxygenation sat greater than 92%. Normally 2 L to 4 L nasal cannula. Dx: MENG with hypoxia, oxygen dependent Unchanged liothyronine (liothyronine 25 mcg oral tablet) 1 tab(s) by mouth Once a day Hypothyroidism Duration: 90 Days Unchanged lisinopril (lisinopril 10 mg oral tablet) 1 tab(s) by mouth Once a day Unchanged Misc Medication Oxygen 1-3 L/ M via NC Unchanged multivitamin with minerals (PreserVision AREDS 2) 1 tab(s) by mouth Two (2) times a day Unchanged omega-3 polyunsaturated fatty acids (omega-3 fish oil 1000 mg oral capsule) 2 cap by mouth Two (2) times a day Unchanged tiotropium (Spiriva HandiHaler 18 mcg inhalation capsule) 1 cap by inhalation Once a day COPD (chronic obstructive pulmonary disease) COPD without exacerbation Duration: 30 Days Restarting medication. Please fill as Spiriva HandiHaler KESHA and discontinue Advair and other Spiriva prescription. Use two inhalations of one capsule for each dose. Please Dispense as Written, Generic is making patient cough. Pharmacy Information [facility] #[id number]: [address], [place] [phone] What How Much When Comments Stop Taking bumetanide (Bumex) 2 Milligram by mouth Once a day Please take this list to your next doctor s visit. Bring all medications you take, including over the counter medications, herbals and other supplements with you to your doctor s visit. Patients and families are reminded to discard old lists and to update any records with all medication providers or retail pharmacies. Medication Leaflets prednisone (PRED nikki sonritesh Preston What is the most important information I should know about prednisone? You should not use prednisone if you have a fungal infection anywhere in your body. You should not stop using prednisone suddenly. Follow your doctor's instructions about tapering your dose. What is prednisone? Prednisone is a steroid that reduces inflammation in the body, and also suppresses your immune system. Prednisone is used to treat many different conditions such as hormonal disorders, skin diseases, arthritis, lupus, psoriasis, allergic conditions, ulcerative colitis, Crohn's disease, eye diseases, lung diseases, asthma, tuberculosis, blood cell disorders, kidney disorders, leukemia, lymphoma, multi ple sclerosis, organ transplant rejection, swelling from a brain tumor or injury. Prednisone may also be used for purposes not listed in this medication guide. What should I discuss with my healthcare provider before taking prednisone? You should not use prednisone if you are allergic to it, or if you have a fungal infection anywherein your body. Steroid medication can weaken your immune system, making it easier for you to get an infection or worsening an infection you already have. Tell your doctor about any illness or infection you've had within the past several weeks. Tell your doctor if you have ever had: heart problems, high blood pressure, or a heart attack; glaucoma or cataracts; herpes infection of the eyes; past or present tuberculosis; a parasite infection that causes diarrhea (such as threadworms); any illness that causes diarrhea; underactive thyroid; diabetes; a stomach ulcer, diverticulitis; a colostomy or ileostomy; osteoporosis or low bone mineral density (steroid medication can increase your risk of bone loss); low levels of calcium or potassium in your blood; cirrhosis or other liver disease; mental illness or psychosis; or a muscle disorder such as myasthenia gravis. Long-term use of steroids may lead to bone loss (osteoporosis), especially if you smoke or drink alcohol, if you do not exercise, or if you do not get enough vitamin D or calcium in your diet. It is not known whether this medicine will harm an unborn baby. Tell your doctor if you are or plan to become . You should not breastfeed while using prednisone. How should I take prednisone? Follow all directions on your prescription label and read all medication guides or instruction sheets. Your doctor may occasionally change your dose. Use the medicine exactly as directed. Prednisone is taken daily or every other day, depending on the condition being treated. You may need to take the medicine at a certain time of day. Follow your doctor's instructions about when and how often to take this medicine. Take with food if prednisone upsets your stomach. Measure liquid medicine carefully. Use the dosing syringe provided, or use a medicine dose-measuring device (not a kitchen spoon). Swallow the delayed-release tablet whole and do not crush, chew, or break it. Prednisone can weaken (suppress) your immune system, and you may get an infection more easily. Callyour doctor if you have signs of infection (fever, weakness, cold or flu symptoms, skin sores, diarrhea, frequent or recurring illness). If you have major surgery or a severe injury or infection, your prednisone dose needs may change. Make sure any doctor caring for you knows you are using this medicine. If you use this medicine long-term, you may need medical tests and vision exams. In case of emergency, wear or carry medical identification to let others know you use a steroid. You should not stop using prednisone suddenly. Follow your doctor's instructions about tapering your dose. Store at room temperature away from moisture, heat, and light. What happens if I miss a dose? Take the medicine as soon as you can, but skip the missed dose if it is almost time for your next dose. Do not take two doses at one time. What happens if I overdose? Seek emergency medical attention or call the Poison Help line at . High doses or long-term use of prednisone can lead to thinning skin, easy bruising, changes in bodyfat (especially in your face, neck, back, and waist), increased acne or facial hair, menstrual problems, impotence, or loss of interest in sex. What should I avoid while taking prednisone? Do not receive a 'live' vaccine while using prednisone. The vaccine may not work as well and may not fully protect you from disease. Live vaccines include measles, mumps, rubella (MMR), polio, rotavirus, typhoid, yellow fever, varicella (chickenpox), zoster (shingles), and nasal flu (influenza) vaccine. Avoid being near people who are sick or have infections. Call your doctor for preventive treatment if you are exposed to chickenpox or measles. These conditions can be serious or even fatal in peoplewho are using steroid medicine. Avoid drinking alcohol. What are the possible side effects of prednisone? Get emergency medical help if you have signs of an allergic reaction: hives; difficult breathing; swelling of your face, lips, tongue, or throat. Call your doctor at once if you have: muscle pain or weakness; blurred vision, tunnel vision, eye pain, or seeing halos around lights; severe depression, changes in personality, unusual thoughts or behavior; bloody or tarry stools, coughing up blood or vomit that looks like coffee grounds; swelling, rapid weight gain, feeling short of breath; irregular heartbeats; severe headache, pounding in your neck or ears; decreased adrenal gland hormones--muscle weakness, tiredness, diarrhea, nausea, menstrual changes, skin discoloration, craving salty foods, and feeling light- headed; or low potassium level--leg cramps, constipation, irregular heartbeats, fluttering in your chest, increased thirst or urination, numbness or tingling, muscle weakness or limp feeling. Prednisone can affect growth in children. Tell your doctor if your child is not growing at a normalrate while using this medicine. Common side effects may include: weight gain (especially in your face or your upper back and torso); increased appetite; mood changes, trouble sleeping; changes in your menstrual periods; problems with memory or thought; muscle or joint pain; weakness; headache, dizziness, spinning sensation; nausea, bloating, loss of appetite; slow wound healing; or acne, increased sweating, thinning skin, bruising, pinpoint spots under your skin. This is not a complete list of side effects and others may occur. Call your doctor for medical advice about side effects. You may report side effects to FDA at 2-211-FDY-7006. What other drugs will affect prednisone? Sometimes it is not safe to use certain medications at the same time. Some drugs can affect your blood levels of other drugs you take, which may increase side effects or make the medications less effective. Tell your doctor about all your current medicines. Many drugs can affect prednisone, especially: bupropion; cyclosporine; digoxin; ketoconazole; an antibiotic; control pills or hormone replacement therapy; a diuretic or 'water pill'; insulin or oral diabetes medicine; a blood thinner--warfarin, Coumadin, Jantoven; or NSAIDs (nonsteroidal anti-inflammatory drugs)--aspirin, ibuprofen (Advil, Motrin), naproxen (Aleve), celecoxib, diclofenac, indomethacin, meloxicam, and others. This list is not complete and many other drugs may affect prednisone. This includes prescription and cjbr-jjp-ronemix medicines, vitamins, and herbal products. Not all possible drug interactions are listed here. Where can I get more information? Your pharmacist can provide more information about prednisone. Remember, keep this and all other medicines out of the reach of children, never share your medicines with others, and use this medication only for the indication prescribed. Every effort has been made to ensure that the information provided by [employer]. ('[employer]') is accurate, up-to-date, and complete, but no guarantee is made to that effect. Drug information contained herein may be time sensitive. [employer] information has been compiled for use by healthcare practitioners and consumers in the [place] and therefore [employer] does not warrant that uses outside of the [place] are appropriate, unless specifically indicated otherwise. [employer] drug information does not endorse drugs, diagnose patients or recommend therapy. [employer] drug information isan informational resource designed to assist licensed healthcare practitioners in caring for their p atients and/or to serve consumers viewing this service as a supplement to, and not a substitute for, the expertise, skill, knowledge and judgment of healthcare practitioners. The absence of a warningfor a given drug or drug combination in no way should be construed to indicate that the drug or drug combination is safe, effective or appropriate for any given patient. [employer] does not assume any responsibility for any aspect of healthcare administered with the aid of information [employer] provides. The information contained herein is not intended to cover all possible uses, directions, precautions, warnings, drug interactions, allergic reactions, or adverse effects. If you have questions about the drugs you are taking, check with your doctor, nurse or pharmacist. Copyright 8869-5204 [employer]. Version: 10.. Revision Date: 06/06/2018. torsemide (oral/injection) (JUANY Christinaaanz What is the most important information I should know about torsemide? You should not use this medicine if you are allergic to sulfa drugs or if you are unable to urinate. What is torsemide? Torsemide is a loop diuretic (water pill) that is used to treat fluid retention (edema) in people with heart failure, liver disease, or kidney disease. Torsemide is also used to treat high blood pressure (hypertension). Lowering blood pressure may lower your risk of a stroke or heart attack. Torsemide may also be used for purposes not listed in this medication guide. What should I discuss with my healthcare provider before taking torsemide? You should not use torsemide if you are allergic to it, or if: you are unable to urinate; or you are allergic to an oral diabetes medicine. Tell your doctor if you have ever had: heart disease; kidney problems (unless you are taking torsemide for edema related to kidney disease); liver problems such as cirrhosis or hepatitis (unless you are taking torsemide for edema related naye disease); gout; an allergy to povidone (sometimes contained in iodine, Betadine); or if you are on a low-salt diet. If you need to have any type of x-ray or CT scan using a dye that is injected into your veins, tellyour caregivers that you currently take torsemide. Tell your doctor if you are or plan to become . It is not known whether torsemide will harm an unborn baby. However, having high blood pressure during may cause complications such as diabetes or eclampsia (dangerously high blood pressure that can lead to medical problems in both mother and baby). The benefit of treating hypertension may outweigh any risks to the baby. It may not be safe to breastfeed while using this medicine. Ask your doctor about any risk. Torsemide is not approved for use by anyone younger than 18 years old. How should I take torsemide? Follow all directions on your prescription label and read all medication guides or instruction sheets. Your doctor may occasionally change your dose. Use the medicine exactly as directed. Torsemide oral is taken by mouth. Torsemide injection is given as an infusion into a vein. A healthcare provider may teach you how toproperly use the medication by yourself. Torsemide injection is given either as a slow infusion over 2 minutes, or as a continuous (around the clock) infusion. If you have cirrhosis or other liver problems, you may receive your first injection in a hospital or clinic setting to quickly treat any serious side effects. Read and carefully follow any Instructions for Use provided with your medicine. Ask your doctor or pharmacist if you don't understand all instructions. Prepare an injection only when you are ready to give it. Do not use if the medicine has changed colors or has particles in it. Call your pharmacist for new medicine. You may take torsemide with or without food. Your blood pressure will need to be checked often, and you may need other medical tests. Your bloodand urine may both be tested if you have been vomiting or are dehydrated. Some things can cause your blood pressure to get too low. This includes vomiting, diarrhea, or heavy sweating. Call your doctor if you are sick with vomiting or diarrhea. Your condition may be treated with a combination of drugs. Use all medications as directed by your doctor. Do not change your doses or medication schedule without your doctor's advice. If you have high blood pressure, keep taking torsemide oral even if you feel well. High blood pressure often has no symptoms. You may need to use blood pressure medicine for the rest of your life. Store at room temperature away from moisture and heat. What happens if I miss a dose? Take the medicine as soon as you can, but skip the missed dose if it is almost time for your next dose. Do not take two doses at one time. Call your doctor for instructions if you miss a dose of torsemide injection. What happens if I overdose? Seek emergency medical attention or call the Poison Help line at . Overdose symptoms may include dehydration, an electrolyte imbalance (such as low levels of potassium, magnesium, or sodium in your blood), or low blood pressure and fainting. What should I avoid while taking torsemide? Avoid becoming overheated or dehydrated during exercise, in hot weather, or by not drinking enough fluids. Follow your doctor's instructions about the type and amount of liquids you should drink. In some cases, drinking too much liquid can be as unsafe as not drinking enough. What are the possible side effects of torsemide Get emergency medical help if you have signs of an allergic reaction: hives; difficult breathing; swelling of your face, lips, tongue, or throat. Call your doctor right away if you have: a light-headed feeling, like you might pass out; ringing in your ears, sudden hearing loss; kidney problems--little or no urination, painful or difficult urination, swelling in your feet or ankles, feeling tired or short of breath; low magnesium level--dizziness, irregular heartbeats, feeling jittery, muscle cramps, muscle spasms, cough or choking feeling; low potassium level--leg cramps, constipation, irregular heartbeats, fluttering in your chest, increased thirst or urination, numbness or tingling, muscle weakness or limp feeling; or low sodium level--headache, confusion, slurred speech, severe weakness, vomiting, loss of coordination, feeling unsteady. Common side effects may include: increased urination; or headache. This is not a complete list of side effects and others may occur. Call your doctor for medical advice about side effects. You may report side effects to FDA at 2-881-SZZ-1131. What other drugs will affect torsemide? Tell your doctor about all your current medicines. Many drugs can affect torsemide, especially: any other diuretic medicine; cholestyramine, lithium, phenytoin, probenecid, rifampin, warfarin (Coumadin, Jantoven); an intravenous (IV) antibiotic medicine; antifungal medicine--fluconazole, miconazole; heart or blood pressure medicine--amiodarone, dronedarone, enalapril, irbesartan, lisinopril, losartan, olmesartan, valsartan, and others; NSAIDs (nonsteroidal anti-inflammatory drugs)--ibuprofen (Advil, Motrin), naproxen (Aleve), celecoxib, diclofenac, indomethacin, meloxicam, and others; salicylates--aspirin, Nuprin Backache Caplet, Kaopectate, KneeRelief, Pamprin Cramp Formula, Pepto-Bismol, Tricosal, Trilisate, and others or steroid medicine--dexamethasone, oxandrolone, prednisone, and others. This list is not complete and many other drugs may affect torsemide. This includes prescription lxplnxi-ffy-adyxddx medicines, vitamins, and herbal products. Not all possible drug interactions are listed here. Where can I get more information? Your pharmacist can provide more information about torsemide. Remember, keep this and all other medicines out of the reach of children, never share your medicines with others, and use this medication only for the indication prescribed. Every effort has been made to ensure that the information provided by [employer]') is accurate, up-to-date, and complete, but no guarantee is made to that effect. Drug information contained herein may be time sensitive. [employer] information has been compiled for use by healthcare practitioners and consumers in the [place] and therefore [employer] does not warrant that uses outside of the [place] are appropriate, unless specifically indicated otherwise. [employer] drug information does not endorse drugs, diagnose patients or recommend therapy. [employer] drug information isan informational resource designed to assist licensed healthcare practitioners in caring for their p atients and/or to serve consumers viewing this service as a supplement to, and not a substitute for, the expertise, skill, knowledge and judgment of healthcare practitioners. The absence of a warningfor a given drug or drug combination in no way should be construed to indicate that the drug or drug combination is safe, effective or appropriate for any given patient. [facility] does not assume any responsibility for any aspect of healthcare administered with the aid of information [facility] provides. The information contained herein is not intended to cover all possible uses, directions, precautions, warnings, drug interactions, allergic reactions, or adverse effects. If you have questions about the drugs you are taking, check with your doctor, nurse or pharmacist. Copyright 8466-1320 [employer]. Version: 14.. Revision Date: 10/13/2022. Education Materials Heart Failure Exacerbation Heart failure is a condition in which the heart does not fill up with enough blood, and therefore does not pump enough blood and oxygen to the body. When this happens, parts of the body do not get the blood and oxygen they need to function properly. This can cause symptoms such as breathing problems, fatigue, swelling, and confusion. Heart failure exacerbation refers to heart failure symptoms that get worse. The symptoms may get worse suddenly or develop slowly over time. Heart failure exacerbation is a serious medical problem that should be treated right away. What are the causes? A heart failure exacerbation can be triggered by: Not taking your heart failure medicines correctly. Infections. Eating an unhealthy diet or a diet that is high in salt (sodium). Drinking too much fluid. Drinking alcohol. Taking illegal drugs, such as cocaine or methamphetamine. Not exercising. Other causes include: Other heart conditions such as an irregular heartbeat (arrhythmia). Anemia. Other medical problems, such as kidney failure. Sometimes the cause of the exacerbation is not known. What are the signs or symptoms? When heart failure symptoms suddenly or slowly get worse, this may be a sign of heart failure exacerbation. Symptoms of heart failure include: Breathing problems or shortness of breath. Chronic coughing or wheezing. Fatigue. Nausea or lack of appetite. Feeling light-headed. Confusion or memory loss. Increased heart rate or irregular heartbeat. Buildup of fluid in the legs, ankles, feet, or abdomen. Difficulty breathing when lying down. How is this diagnosed? This condition is diagnosed based on: Your symptoms and medical history. A physical exam. You may also have tests, including: Electrocardiogram (ECG). This test measures the electrical activity of your heart. Echocardiogram. This test uses sound waves to take a picture of your heart to see how well it works. Blood tests. Imaging tests, such as: ? Chest X-ray. ? MRI. ? Ultrasound. Stress test. This test examines how well your heart functions when you exercise. Your heart is monitored while you exercise on a treadmill or exercise bike. If you cannot exercise, medicines may be used to increase your heartbeat in place of exercise. Cardiac catheterization. During this test, a thin, flexible tube (catheter) is inserted into a blood vessel and threaded up to your heart. This test allows your health care provider to check the arteries that lead to your heart (coronary arteries). Right heart catheterization. During this test, the pressure in your heart is measured. How is this treated? This condition may be treated by: Adjusting your heart medicines. Maintaining a healthy lifestyle. This includes: ? Eating a heart-healthy diet that is low in sodium. ? Not using any products that contain nicotine or tobacco, such as cigarettes and e-cigarettes. ? Regular exercise. ? Monitoring your fluid intake. ? Monitoring your weight and reporting changes to your health care provider. Treating sleep apnea, if you have this condition. Surgery. This may include: ? Implanting a device that helps both sides of your heart contract at the same time (cardiac resynchronization therapy device). This can help with heart function and relieve heart failure symptoms. ? Implanting a device that can correct heart rhythm problems (implantable cardioverter defibrillator). ? Connecting a device to your heart to help it pump blood (ventricular assist device). ? Heart transplant. Follow these instructions at home: Medicines Take efyp-viw-yrrplku and prescription medicines only as told by your health care provider. Do not stop taking your medicines or change the amount you take. If you are having problems or sideeffects from your medicines, talk to your health care provider. If you are having difficulty paying for your medicines, contact a social work msw or your clinic. There are many programs to assist with medicine costs. Talk to your health care provider before starting any new medicines or supplements. Make sure your health care provider and pharmacist have a list of all the medicines you are taking. Eating and drinking Avoid drinking alcohol. Eat a heart-healthy diet as told by your health care provider. This includes: ? Plenty of fruits and vegetables. ? Lean proteins. ? Low-fat dairy. ? Whole grains. ? Foods that are low in sodium. Activity Exercise regularly as told by your health care provider. Balance exercise with rest. Ask your health care provider what activities are safe for you. This includes sexual activity, exercise, and daily tasks at home or work. Lifestyle Do not use any products that contain nicotine or tobacco, such as cigarettes and e-cigarettes. If you need help quitting, ask your health care provider. Maintain a healthy weight. Ask your health care provider what weight is healthy for you. Consider joining a patient support group. This can help with emotional problems you may have, such as stress and anxiety. General instructions Talk to your health care provider about flu and pneumonia vaccines. Keep a list of medicines that you are taking. This may help in emergency situations. Keep all follow-up visits as told by your health care provider. This is important. Contact a health care provider if: You have questions about your medicines or you miss a dose. You feel anxious, depressed, or stressed. You have swelling in your feet, ankles, legs, or abdomen. You have shortness of breath during activity or exercise. You have a cough. You have a fever. You have trouble sleeping. You gain 2 3 lb (1 1.4 kg) in 24 hours or 5 lb (2.3 kg) in a week. Get help right away if: You have chest pain. You have shortness of breath while resting. You have severe fatigue. You are confused. You have severe dizziness. You have a rapid or irregular heartbeat. You have nausea or you vomit. You have a cough that is worse at night or you cannot lie flat. You have a cough that will not go away. You have severe depression or sadness. Summary When heart failure symptoms get worse, it is called heart failure exacerbation. Common causes of this condition include taking medicines incorrectly, infections, and drinking alcohol. This condition may be treated by adjusting medicines, maintaining a healthy lifestyle, or surgery. Do not stop taking your medicines or change the amount you take. If you are having problems or sideeffects from your medicines, talk to your health care provider. This information is not intended to replace advice given to you by your health care provider. Make sure you discuss any questions you have with your health care provider. Document Released: 07/10/2017 Document Revised: 02/08/2018 Document Reviewed: 07/10/2017 [employer] Patient Education 2020 [employer] Chronic Obstructive Pulmonary Disease Exacerbation Chronic obstructive pulmonary disease (COPD) is a long-term (chronic) condition that affects the lungs. COPD is a general term that can be used to describe many different lung problems that cause lung swelling (inflammation) and limit airflow, including chronic bronchitis and emphysema. COPD exacerbations are episodes when breathing symptoms become much worse and require extra treatment. COPD exacerbations are usually caused by infections. Without treatment, COPD exacerbations can be severe and even life threatening. Frequent COPD exacerbations can cause further damage to the lungs. What are the causes? This condition may be caused by: Respiratory infections, including viral and bacterial infections. Exposure to smoke. Exposure to air pollution, chemical fumes, or dust. Things that give you an allergic reaction (allergens). Not taking your usual COPD medicines as directed. Underlying medical problems, such as congestive heart failure or infections not involving the lungs. In many cases, the cause (trigger) of this condition is not known. What increases the risk? The following factors may make you more likely to develop this condition: Smoking cigarettes. Old age. Frequent prior COPD exacerbations. What are the signs or symptoms? Symptoms of this condition include: Increased coughing. Increased production of mucus from your lungs (sputum). Increased wheezing. Increased shortness of breath. Rapid or labored breathing. Chest tightness. Less energy than usual. Sleep disruption from symptoms. Confusion or increased sleepiness. Often these symptoms happen or get worse even with the use of medicines. How is this diagnosed? This condition is diagnosed based on: Your medical history. A physical exam. You may also have tests, including: A chest X-ray. Blood tests. Lung (pulmonary) function tests. How is this treated? Treatment for this condition depends on the severity and cause of the symptoms. You may need to be admitted to a hospital for treatment. Some of the treatments commonly used to treat COPD exacerbations are: Antibiotic medicines. These may be used for severe exacerbations caused by a lung infection, such as pneumonia. Bronchodilators. These are inhaled medicines that expand the air passages and allow increased airflow. Steroid medicines. These act to reduce inflammation in the airways. They may be given with an inhaler, taken by mouth, or given through an IV tube inserted into one of your veins. Supplemental oxygen therapy. Airway clearing techniques, such as noninvasive ventilation (NIV) and positive expiratory pressure (PEP). These provide respiratory support through a mask or other noninvasive device. An example of this would be using a continuous positive airway pressure (CPAP) machine to improve delivery of oxygen into your lungs. Follow these instructions at home: Medicines Take plyr-pyv-ocoudcn and prescription medicines only as told by your health care provider. It is important to use correct technique with inhaled medicines. If you were prescribed an antibiotic medicine or oral steroid, take it as told by your health care provider. Do not stop taking the medicine even if you start to feel better. Lifestyle Eat a healthy diet. Exercise regularly. Get plenty of sleep. Avoid exposure to all substances that irritate the airway, especially to tobacco smoke. Wash your hands often with soap and water to reduce the risk of infection. If soap and water are not available, use hand service unit operator oil well. During flu season, avoid enclosed spaces that are crowded with people. General instructions Drink enough fluid to keep your urine clear or pale yellow (unless you have a medical condition that requires fluid restriction). Use a cool mist vaporizer. This humidifies the air and makes it easier for you to clear your chest when you cough. If you have a home nebulizer and oxygen, continue to use them as told by your health care provider. Keep all follow-up visits as told by your health care provider. This is important. How is this prevented? Stay up-to-date on pneumococcal and influenza (flu) vaccines. A flu shot is recommended every year to help prevent exacerbations. Do not use any products that contain nicotine or tobacco, such as cigarettes and e-cigarettes. Quitting smoking is very important in preventing COPD from getting worse and in preventing exacerbationsfrom happening as often. If you need help quitting, ask your health care provider. Follow all instructions for pulmonary rehabilitation after a recent exacerbation. This can help prevent future exacerbations. Work with your health care provider to develop and follow an action plan. This tells you what stepsto take when you experience certain symptoms. Contact a health care provider if: You have a worsening of your regular COPD symptoms. Get help right away if: You have worsening shortness of breath, even when resting. You have trouble talking. You have severe chest pain. You cough up blood. You have a fever. You have weakness, vomit repeatedly, or faint. You feel confused. You are not able to sleep because of your symptoms. You have trouble doing daily activities. Summary COPD exacerbations are episodes when breathing symptoms become much worse and require extra treatment above your normal treatment. Exacerbations can be severe and even life threatening. Frequent COPD exacerbations can cause further damage to your lungs. COPD exacerbations are usually triggered by infections such as the flu, colds, and even pneumonia. Treatment for this condition depends on the severity and cause of the symptoms. You may need to be admitted to a hospital for treatment. Quitting smoking is very important to prevent COPD from getting worse and to prevent exacerbations from happening as often. This information is not intended to replace advice given to you by your health care provider. Make sure you discuss any questions you have with your health care provider. Document Released: 12/24/2007 Document Revised: 02/08/2018 Document Reviewed: 04/02/2017 [employer] Patient Education 2020 [employer]. Additional Information VACCINATE! IT SAVES LIVES! Members of the community who have not yet received the COVID-19 vaccine and would like to receive it can visit one of [facility] vaccine clinics. There are many vaccine clinic locations within the [facility]. For locations and available times, please visit [email or web address].[email or web address] It is important to note that some COVID mobile vaccine clinics are held outdoors and may be canceled in rainy or stormy conditions. To learn more about pediatric vaccinations (ages 5-11), we invite you to visit the [facility] webpage. [email or web address] learn more about the COVID-19 vaccine, we invite you to visit the CDC website for a list of frequently asked questions.https://www.cdc.gov/coronavirus/2019-ncov/vaccines/faq.html [facility] Patient Portal Access Instructions: Stay connected with your healthcare team and access your personal medical information anytime with the [facility] Patient Portal. Please follow the directions below to create your [facility] account: 1.Access the email account you provided upon registration to the hospital/physician office.2.Look for an invitation email from [facility].3.Open the email and access the invitation link: AcceptInvitation to [facility].4.Fill in the required hollis to create your account. To access your account, visit [email or web address]. Click the blue button labeled Access Patient Portal and then log in with the username and password that you created in the steps above (more content not included)... [facility]02-26-2024 Note Date of Service 05/07/2023 Chief Complaint has been having dispnea for a couple weks been at [facility] twice for it History of Present Illness Patient is an 82-year-old male, who follows with Dr. Talya Nichols with a past medical history significant for type 2 diabetes, congestive heart failure, COPD, chronic kidney disease and hypothyroidism, presented to [facility] emergency department with the chief complaint of dyspneaon exertion. Patient states that he feels that he cannot breathe and believes this is secondary to his being taken on his torsemide 5 mg oral daily. Patient was told by his home health nurse that he should not take the torsemide due to getting gout from it. Since it was stopped and he was started on furosemide, he has had multiple hospital visits for shortness of breath. Patient was over at [facility] today for a post-hospitalization visit. He was noted in the office to be 89% on 4L of oxygen and with expiratory wheezes throughout all field. Patient denies any fever, chills, chest pain, abdominal pain, nausea or dysuria. In the emergency department, chest x-ray revealed small left pleural effusion with adjacent basilarairspace disease. EKG revealed sinus rhythm. CBC remarkable for hemoglobin 9.9 and hematocrit 29.4.BMP significant for glucose 129, potassium 5.2, BUN 44 and creatinine 2.43. Troponin negative. BNP 1374. Patient was administered 125 mg solu-medrol IV and multiple breathing treatments in the ED. Hewas able to be weaned back to his home O2 of 2L with acceptable oxygen saturations. The case was discussed with the ED physician who recommended admission due to hypoxia and increased oxygen requirements. Patient was transferred to telemetry for observation. We will continue solu-medrol 40 mg IV BID. We will continue duoneb aerosols as needed and scheduled. He appeared to be euvolemic. Will restart torsemide 5 mg oral daily and observe patient. Continue daily weights, strict I&O's. Repeat CBC and BMP in the am. Patient seen and evaluated this morning while resting in wheelchair in the ED. Patient adamant thatbeing taken off his torsemide is the root of his problems. Attempted to explain to patient that he has expiratory wheezes throughout which is more consistent with a COPD exacerbation. We will continue steroids, breathing treatments. Will research the torsemide and restart if able. Patient states hewould rather have gout than not be able to breathe. All questions answered. Review of Systems Review of Systems: Reviewed in detail, including general health, HEENT, cardiovascular, respiratory, gastrointestinal, genitourinary, endocrine, musculoskeletal, neurologic, vascular, skin, and psychiatric. All are negative except for those listed in the History of Present Illness. Physical Exam Vitals and Measurements T: 36.5 C (Oral) TMIN: 36.3 C (Oral) TMAX: 36.7 C (Oral) HR: 74(Apical) RR: 20 BP: 147/65 SpO2: 94%HT: 165.1 cm WT: 87 kg BMI: 31.92 Weight Dosing Weight: 87 kg (05/07/23) Dosing Weight: 87 kg (05/07/23) General: No acute distress. Patient is alert, chronically ill-appearing. Skin: No rash. Skin is warm, dry and intact. HEENT: Head is normocephalic, atraumatic. Pupils are equal, round and reactive. Neck: Supple. No lymphadenopathy, thyromegaly. Lungs: Expiratory wheezes heard in all hollis. Conversational dyspnea noted. Heart: Heart is regular rhythm, S1, S2. No murmurs, gallops or rubs. Abdomen: Abdomen is soft, nontender. Bowels sounds present in all quadrants. Extremities: No clubbing, cyanosis, or edema. Peripheral pulses palpable. No calf tenderness. Neurological: Patient is awake and alert to person, place and time. Following simple commands, moving all extremities. Lab Results 05/07 10:11 WBC: 7.7 Hgb: 9.9 L Hct: 29.4 L Platelet: 134 Neutrophil %: 66.2 Glucose Level: 129 H Sodium Level: 145 Potassium Level: 5.2 H BUN: 44 H Creatinine Lvl (s): 2.43 H Imaging Results and Diagnostics XR Chest 1 View Result Date: May 07, 2023 Verified By: ERIKA DESHPANDE DO CLINICAL STATEMENT: IMPRESSION: Small left pleural effusion with adjacent basilar airspace disease. I have personally reviewed the images of this examination and agree with the resident's findings and interpretation. EKG EC05/07/23: Sinus rhythm Borderline prolonged WA interval Posterior infarct, old Nonspecific T abnormalities, lateral leads Electronic Signature: KIRSTY GROSS MD 05/07/2023 11:42:23 Assessment/Plan 1. COPD with acute exacerbation Acute, new onset. Continue solu-medrol 40 mg IV BID. Continue duoneb aerosols as needed and scheduled. Continue supplemental oxygen as needed to maintain oxygen saturations greater than 92%, wean back to home O2 level. Repeat CBC and BMP in the am. 2. CKD stage 3 secondary to diabetes Chronic, baseline. GFR ranges between 22-32. Monitor BMP. 3. Type 2 diabetes mellitus with hyperlipidemia Chronic, controlled. Blood sugar checks before meals and at bedtime. Cover with corrective sliding scale insulin. ADA diet. Blood sugar goal of 180 or less and avoid hypoglycemia. 4. HTN (hypertension) Chronic, controlled. Continue current antihypertensives. SBP goal of 140 or less. 5. Heart failure with preserved ejection fraction Chronic, stable. BNP mildly elevated but, in the face of CKD, may not reflect true volume status. Patient appears to be euvolemic. Will restart torsemide 5 mg PO daily to appease patient if not absolutely contraindicated. DVT prophylaxis with SCDs. Code status: Full Code. Labs, diagnostic test and progress notes reviewed as noted in HPI. Plan of care discussed with patient. All questions answered. Patient verbalizes understanding and is agreeable with plan of care. This case was discussed with collaborating physician, Dr. Aiden Corrigan. 75 minutes spent reviewing past diagnostic tests, reviewing lab results, vital sign trends, medicalhistory, reviewing medications and ordering home medications, examining patient, discussed plan of care with nursing, collaborating with physician, and documenting in chart. Problem List/Past Medical History Ongoing (HFpEF) heart failure with preserved ejection fraction Acute CHF (congestive heart failure) Acute kidney injury superimposed on chronic kidney disease Acute on chronic blood loss anemia Acute on chronic respiratory failure with hypoxia Acute on chronic systolic CHF (congestive heart failure) Anemia in CKD (chronic kidney disease) Anemia, unspecified Aortic stenosis Blister Blood loss anemia BMI 33.0-33.9,adult BMI 34.0-34.9,adult BPH (benign prostatic hyperplasia) CAD (coronary artery disease) Chest congestion Chronic hypoxemic respiratory failure Chronic kidney disease (CKD) CKD (chronic kidney disease) stage 4, GFR 15-29 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 COPD (chronic obstructive pulmonary disease) COPD with acute exacerbation COPD without exacerbation DM type 2, goal HbA1c < 7.5% Dyspnea on minimal exertion Elevated blood uric acid level Elevated liver enzymes Former tobacco use GI bleed GI bleeding Gout Gout flare Has received influenza vaccination in current influenza season Heart failure with preserved ejection fraction History of non-ST elevation myocardial infarction (NSTEMI) History of recent fall Hospital discharge follow-up Hospital discharge follow-up HTN (hypertension) Hypercholesterolemia Hyperkalemia Hyperlipidemia Hypertension associated with type 2 diabetes mellitus Hypothyroidism Ichthyosis vulgaris Limited mobility Medicare annual wellness visit, subsequent Need for influenza vaccination NSTEMI (non-ST elevated myocardial infarction) Obesity (BMI 30-39.9) Oxygen dependent Risk and functional assessment Screening for colon cancer Screening for prostate cancer Shortness of breath at rest Type 2 diabetes mellitus with hemoglobin A1c goal of less than 7.5% Type 2 diabetes mellitus with hyperglycemia Type 2 diabetes mellitus with hyperlipidemia Type 2 diabetes mellitus with stage 4 chronic kidney disease Umbilical hernia Vitamin D deficiency Well adult exam Historical Diabetes mellitus Procedure/Surgical History Echocardiogram: 11/28/22 Cardiac catheterization: 03/15/22 Echocardiogram: 03/12/22 Cataract extraction: 09/29/18 Medications Home Medications (17) Active albuterol-ipratropium 2.5 mg-0.5 mg/3 mL inhalation solution 3 mL, Nebulized, QID ammonium lactate 12% topical cream 1 erika, Topical, BID atorvastatin 80 mg oral tablet 80 mg = 1 tab(s), Oral, qDay Blood Glucose Test Strips See Instructions Bumex 2 mg, Oral, qDay carvedilol 6.25 mg oral tablet 6.25 mg = 1 tab(s), Oral, BIDM DME MISCellaneous See Instructions DME MISCellaneous See Instructions DME MISCellaneous See Instructions Jardiance 25 mg oral tablet 25 mg = 1 tab(s), Oral, qAM liothyronine 25 mcg oral tablet 25 mcg = 1 tab(s), Oral, qDay lisinopril 10 mg oral tablet 10 mg = 1 tab(s), Oral, qDay Misc Medication omega-3 fish oil 1000 mg oral capsule 2,000 mg = 2 cap(s), Oral, BID PreserVision AREDS 2 1 tab(s), Oral, BID Spiriva HandiHaler 18 mcg inhalation capsule 18 mcg = 1 cap(s), Inhalation, qDay Vitamin D3 25 mcg (1000 intl units) oral capsule 25 mcg = 1 cap(s), Oral, Daily Allergies Valturna (Numbness of hand, Numbness of finger, Numbness) codeine (Stomach problem, Nausea) Social History Smoking Status - 11/13/2017 Former smoker Alcohol - Denies Alcohol Use, 11/13/2017 Use: Past., 11/28/2018 Home/Environment Living situation: Home/Independent., 11/28/2018 Nutrition/Health Caffeine intake amount: 1 servings daily coffee., 12/22/2020 Substance Abuse - Denies Substance Abuse, 11/13/2017 Use: Never., 11/28/2018 Tobacco Nicotine Use: Former smoker, quit more than 30 days ago., 02/27/2019 Family History Breast cancer: Sister. CABG - Coronary artery bypass graft: Mother. CVA - Cerebrovascular accident: Mother and Father. Cancer: Sister and Brother. Diabetes mellitus: Sister. Heart disease: Mother, Father and Sister. Hyperlipidemia: Mother. Hypertension: Mother. [place] - myocardial infarction: Mother. Immunizations pneumococcal 23-valent vaccine(Pneumovax: 0 unknown unit (01/31/16) pneumococcal 23-valent vaccine(Pneumovax: 0 unknown unit (07/31/14) SARS-CoV-2 mRNA (tozinameran) vaccine: 0.3 unknown unit (01/10/21) SARS-CoV-2 mRNA (tozinameran) vaccine: 0.5 unknown unit (06/19/20) SARS-CoV-2 mRNA (tozinameran) vaccine: 0.5 unknown unit (05/25/20) tetanus-diphtheria toxoids: 0 unknown unit (12/09/09) Code Status Code Status - Ordered -- 05/07/23 11:41:00 EST, Full Code, Constant Order Digitally Signed by DELIA JEFFERSON on 05/07/2023 09:04 PM [facility]02-26-2024 Evaluation + Plan noteExtracted from: Title:History and Physical Author:DELIA JEFFERSON Date:05/07/23 1. COPD with acute exacerbat ion Acute, new onset. Continue solu-medrol 40 mg IV BID. Continue duoneb aerosols as needed and scheduled. Continue supplemental oxygen as needed to maintain oxygen saturations greater than 92%, wean back to home O2 level. Repeat CBC and BMP in the am. 2. CKD stage 3 secondary to diabetes Chronic, baseline. GFR ranges between 22-32. Monitor BMP. 3. Type 2 diabetes mellitus with hyperlipidemia Chronic, controlled. Blood sugar checks before meals and at bedtime. Cover with corrective sliding scale insulin. ADA diet. Blood sugar goal of 180 or less and avoid hypoglycemia. 4. HTN (hypertension) Chronic, controlled. Continue current antihypertensives. SBP goal of 140 or less. 5. Heart failure with preserved ejection fraction Chronic, stable. BNP mildly elevated but, in the face of CKD, may not reflect true volume status. Patient appears to be euvolemic. Will restart torsemide 5 mg PO daily to appease patient if not absolutely contraindicated. DVT prophylaxis with SCDs. Code status: Full Code. Labs, diagnostic test and progress notes reviewed as noted in HPI. Plan of care discussed with patient. All questions answered. Patient verbalizes understanding and is agreeable with plan of care. This case was discussed with collaborating physician, Dr. Aiden Corrigan. 75 minutes spent reviewing past diagnostic tests, reviewing lab results, vital sign trends, medical history, reviewing medications and ordering home medications, examining patient, discussed plan of care with nursing, collaborating with physician, and documenting in chart. Future Appointments Appointment Date:05/11/2023 12:30:00 PM Scheduled Provider:TALYA NICHOLS DO Location:[facility] Appointment Type:[facility] Hospital Follow-Up Future Scheduled Tests Laboratory* Basic Metabolic Panel 02/08/23 * Thyroid Stimulating Hormone 04/11/23 * Complete Blood Count 03/02/23 * Complete Blood Count 03/09/23 * Complete Blood Count 03/16/23 * Complete Blood Count 03/23/23 * Complete Blood Count 03/30/23 * Complete Blood Count 04/06/23 * Complete Blood Count 04/13/23 * Complete Blood Count 04/20/23 * Complete Blood Count 04/27/23 * Complete Blood Count 05/04/23 * Complete Blood Count 05/11/23 * Complete Blood Count 05/18/23 * Complete Blood Count 05/25/23 * Complete Blood Count 04/11/23 * Complete Blood Count 02/08/23 * Complete Blood Count 04/13/23 * Complete Metabolic Panel 04/11/23 * Complete Metabolic Panel 04/13/23 * N-Terminal proBNP 04/13/23 [facility] 02-26-2024 Note ORIGINAL EXAMINATION: ONE XRAY VIEW OF THE CHEST05/07/2023 10:32 am COMPARISON: 10/31/2022 HISTORY: ORDERING SYSTEM PROVIDED HISTORY: Reason for Exam: SOB/cough/fever FINDINGS: The cardiomediastinal silhouette is within normal limits given portable technique and patient positioning. Atherosclerotic calcification of the aorta. No significant vascular congestion. Small left pleural effusion with adjacent airspace disease. No pneumothorax. No acute osseous abnormality. Degenerative changes of the shoulders and spine. IMPRESSION: Small left pleural effusion with adjacent basilar airspace disease. I have personally reviewed the images of this examination and agree with the resident's findings and interpretation. Interpreted by: Erika Deshpande DO Preliminary Report By: Yesika Payne Electronically signed By Erika Deshpande DO Dictated Date: 05/07/2023 10:33:25 AM Prelim Date: 05/07/2023 10:53:51 AM Sign Date: 05/07/2023 10:53:51 AM [facility] Sinus rhythm Borderline prolonged WA interval Posterior infarct, old Nonspecific T abnormalities, lateral leads Electronic Signature: KIRSTY GROSS MD 05/07/2023 11:42:23[facility] 02-20-2024 Discharge summary Author Frederick Logan [facility] May 01, 2023 2:55am Note Date/Time May 01, 2023 12:51am [facility] Medical Records Department [address] [place] [address] Emergency Department Summary 04/30/23 MR#: [id number] Acct: [id number] Name: BEULAH BRIGHT Rep #:[id number] : 1940 82 From: Frederick Logan DO PCP: Dr. Talya Nichols DO Status:REG ER Location: ED HPI History of Present Illness Chief Complaint: Shortness of Breath Informant: patient Narrative Narrative: Patient is 82-year-old male with past medical history of of chronic respiratory failure wearing 2 to 4 L nasal cannula oxygen 02/10 with history of COPD and congestive heart failure as well as hypertension and hyperlipidemia. He was seen in the ER and admitted to the hospital in the last week secondary to increased shortness of breath. At that time he had medications adjusted secondary to his symptoms and the fact he felt that his Lasix was not controlling his congestive heart failure. Patient states he is taking his medications as directed but today felt increased shortness of breath at rest that worsens with motion and therefore comes in for evaluation. He states that there is no fevers or chills no chest pain nausea or vomiting associated with this [facility] Medical History Acute and chronic respiratory failure with hypoxia Aortic valve stenosis, acquired Atherosclerotic heart disease of [place] coronary artery without angina pectoris CAD (coronary artery disease) Cardiology follow-up encounter Chronic respiratory failure with hypoxia COPD (chronic obstructive pulmonary disease) Diabetes Diabetes mellitus, type 2 Diastolic CHF Former smoker Former tobacco use High cholesterol History of CAD (coronary artery disease) History of echocardiogram History of GI bleed History of left heart catheterization (LHC) (~03/15/22) HLD (hyperlipidemia) HTN (hypertension) Hypertension Hypothyroidism Kidney disease Loss of hearing Low iron Mild left ventricular hypertrophy Myocardial infarct No natural teeth Nonrheumatic aortic (valve) stenosis Obesity On home oxygen therapy Polyarthralgia Poor historian Shortness of breath on exertion Symptomatic anemia Syncope Thyroid disease TIA (transient ischemic attack) Wears glasses Home Medications atorvastatin 80 mg tablet 80 mg PO DAILY CHOLESTEROL 05/02/21 [History Last Taken 02/14/23] cholecalciferol (vitamin D3) 25 mcg (1,000 unit) capsule 25 mcg PO DAILY /21/22 [History Last Taken 02/15/23] ipratropium 0.5 mg-albuterol 3 mg (2.5 mg base)/3 mL nebulization soln 3 ml inhalation 4X/DAY PRN sob 05/02/21 [History Last Taken 02/15/23] liothyronine 25 mcg tablet 25 mcg PO DAILY THYROID 05/02/21 [History Last Taken 02/15/23] omega-3 fatty acids-vitamin E 1,000 mg capsule 2 cap PO BID SUPPLEMENT 05/02/21 [History Last Taken 02/15/23] tiotropium bromide 18 mcg capsule with inhalation device (Spiriva with HandiHaler) 18 mcg inhalation DAILY SOB 05/02/21 [History Last Taken 02/15/23] vitamins A,C,W-vepu-gxerce 4,296 mcg-226 mg-90 mg capsule (PreserVision AREDS) 1cap PO BID vitamin 12/13/21 [History Last Taken 02/15/23] lisinopril 20 mg tablet (Zestril) 10 mg PO DAILY blood pressure 03/12/22 [History Last Taken 02/15/23] glimepiride 2 mg tablet 2 mg PO DAILY DM #3 tabs 03/09/23 [Rx Last Taken 02/15/23] pantoprazole 40 mg tablet,delayed release (Protonix) 40 mg PO BID 90 days #180 tabs 03/09/23 [Rx Last Taken Unknown] sucralfate 1 gram tablet 1 g PO TID 30 days #90 tabs 03/23/23 [Rx Last Taken Unknown] sucralfate 1 gram tablet (Carafate) 1 g PO BID 30 days #60 tabs 03/23/23 [Rx Last Taken Unknown] bumetanide 2 mg tablet 2 mg PO DAILY #30 tabs 04/26/23 [Rx Last Taken Unknown] carvedilol 6.25 mg tablet 6.25 mg PO BIDCM 30 days #60 tabs 04/26/23 [Rx Last Taken Unknown] empagliflozin 10 mg tablet (Jardiance) 10 mg PO DAILY 30 days #30 tabs 04/26/23 [Rx Last Taken Unknown] spironolactone 25 mg tablet 25 mg PO DAILY 30 days #30 tabs 04/26/23 [Rx Last Taken Unknown] Allergy/AdvReac Type Severity Reaction Status Date / Time codeine AdvReac Upset Verified 04/30/23 21:45 Stomach Family History Mother CVA (cerebral vascular accident) Heart disease Myocardial infarction Hx of CABG Hypertension Father CVA (cerebral vascular accident) Heart disease Surgical History S/P cataract extraction Social History household members: none housing: house Smoking Status: Former smoker how long ago did patient quit smoking: Quit 2011, prior 1 ppd since teen. alcohol intake: former year quit: 2010 substance use type: does not use ROS ROS ED Constitutional Constitutional ED: Denies chills or fever(s) Eyes Eyes: Denies change in vision ENT ENT ED: Denies rhinorrhea or sore throat Cardiovascular Cardiovascular: Denies chest pain, palpitations or racing heartbeat Respiratory/Chest Respiratory/Chest: Reports dyspnea and dyspnea on exertion; Denies cough Gastrointestinal Gastrointestinal: Denies abdominal pain, diarrhea, nausea or vomiting Genitourinary Genitourinary ED: Denies dysuria Musculoskeletal Musculoskeletal: Denies myalgias Integumentary Denies rash Neurologic Neurologic: Denies headache(s) Hematologic/Lymphatic Hematologic/Lymphatic: Denies easy bleeding or easy bruising EXAM Physical Exam Const Vital Signs: 04/30/23 21:40 04/30/23 21:46 04/30/23 21:48 Temperature 97.6 F L Temperature Source Temporal Pulse Rate 78 75 Respiratory Rate 26 H 19 H Respiratory Effort Short of Breath Respiratory Pattern Tachypnea Blood Pressure 138/117 H 150/46 H Blood Pressure Mean 124 80 Pulse Ox 97 98 Oxygen Delivery Method Nasal Cannula Nasal Cannula Nasal Cannula Oxygen Flow Rate (L/min) 4 4 4 04/30/23 22:30 04/30/23 22:30 04/30/23 23:00 Temperature Temperature Source Pulse Rate 76 68 73 Respiratory Rate 24 H 12 22 H Respiratory Effort Respiratory Pattern Tachypnea Blood Pressure 142/69 H 149/43 H Blood Pressure Mean 93 78 Pulse Ox 98 98 Oxygen Delivery Method Nasal Cannula Nasal Cannula Oxygen Flow Rate (L/min) 4 4 05/01/23 00:00 05/01/23 01:00 Temperature Temperature Source Pulse Rate Respiratory Rate 16 20 H Respiratory Effort Respiratory Pattern Blood Pressure Blood Pressure Mean Pulse Ox Oxygen Delivery Method Oxygen Flow Rate (L/min) Positive well nourished, well developed and obese General Appearance ED: well developed; Negative for pallor Nutritional Appearance: obese HEENT Reports dry mucous membranes HEENT Narrative: Mucous membranes are dry and tacky No tongue or lip swelling noted. No oral lesions no airway edema or compromise present Mouth ED: Yes dry mucous membranes Mouth: dry mucous membranes Eyes PERRL and EOMs intact bilaterally General Eye ED: Negative for pale conjunctiva or scleral icterus Neck supple, no meningeal signs and no JVD Resp Resp Narrative: Patient has mild tachypnea with slight accessory muscle use. Breath sounds are diminished throughout with crackles in the bilateral bases consistent with history of CHF with faint expiratory wheeze Cardio regular rate and regular rhythm Cardio Narrative: Radial and carotid pulses equal and symmetric GI non-tender and non-distended GI Narrative: No pulsatile mass or fluid wave noted Auscultation: normoactive bowel sounds Palpation: soft Extremity Extremity Narrative: +1 pitting edema to the bilateral lower extremities that is equal and symmetric Negative Homans' sign bilaterally Neuro oriented x3, CN's II-XII intact bilaterally and no sensory deficits noted Sensorium / Orientation: alert Motor Exam: strength 5/5 throughout Psych mental status grossly normal Skin no rashes or lesions noted and no wounds Skin Narrative: Skin turgor is slightly increased General Skin Exam: Negative for jaundice or pallor MDM MDM MDM Narrative Medical decision making narrative: Patient arrived to the ER satting in the mid to high 90s on 4 L nasal cannula oxygen. He states he wears 2 L at rest and will increase to 4 L with activity. Demential diagnosis is for congestive heart failure exacerbation versus pneumonia versus acute on chronic kidney injury versus acute blood loss anemia versus electrolyte derangement. X-ray was obtained which revealed bibasilar opacities that were stable/similar nature to his previous x-ray consistent with congestive heart failure. Patient's hemoglobin is low at 8.3 but chart review reveals this is near his baseline which is roughly 8.5-9.5 and this is above thetransfusion value. Patient's kidney function is at baseline and there are no signs of clinically significant electrolyte derangement. The patient was ambulated in the ER and his pulse ox remained in the mid to high 90s with ambulation. Therefore at this time as the patient is not requiring a transfusion as his hemoglobin is above 7 his chest x-ray shows stable findings consistent with congestive heart failure and he is not in acute kidney injury and also he can ambulate without desaturation do not feel there is need for admission and patient will otherwise be discharged home History & Record Review Discussion w/independent historian: Patient Lab Data Attestation: I reviewed the patient's lab results. Labs: Laboratory Results - last 24 hr 04/30/23 21:57 WBC 4.3 L RBC 3.08 L Hgb 8.3 L Hct 28.0 L MCV 90.9 MCH 26.9 L MCHC 29.6 L RDW Std Deviation 46.7 H RDW Coeff of John 14.2 Plt Count 109 L MPV 11.9 Immature Gran % (Auto) 0.200 Neut % (Auto) 60.3 Lymph % (Auto) 24.1 [place] % (Auto) 9.3 Eos % (Auto) 5.6 H Baso % (Auto) 0.5 Absolute Neuts (auto) 2.6 Absolute Lymphs (auto) 1.03 Nucleated RBC % 0 Sodium 147 H Potassium 4.2 Chloride 112 H Carbon Dioxide 34.0 H Anion Gap 1 L BUN 75 H Creatinine 2.04 H Estim Creat Clear Calc 28.55 Est GFR (MDRD) Af Amer 40 L Est GFR (MDRD) Non-Af 33 L BUN/Creatinine Ratio 36.8 H Glucose 131 H Calcium 9.0 B-Natriuretic Peptide 292.3 H Radiography Diagnostic Testing: Clinical Impression(s) from Imaging Studies Chest X-Ray 04/30/23 22:38 IMPRESSION: 1. No evidence of acute cardiopulmonary disease. 2. Stable mild increased interstitial opacities in the bilateral lower lungs possibly representing chronic interstitial lung disease. Electronically Signed: Alexsi Perera DO at 23:07 EST , Chest x-ray as interpreted by the emergency medicine physician reveals interstitial bibasilar opacities similar nature to previous x-ray most consistent with CHF Discharge Plan Triage Chief Complaint: Shortness of Breath ED Provider: Frederick Logan Dx/Rx/DC Orders Clinical Impression: Congestive heart failure (CHF), Anemia, Essential hypertension, COPD (chronic obstructive pulmonary disease) Instructions: ED Heart Failure, Congestive (CHF) Prescriptions: No Action atorvastatin 80 mg tablet 80 mg PO DAILY ipratropium-albuterol 0.5 mg-3 mg(2.5 mg base)/3 mL solution for nebulization 3 ml inhalation 4X/DAY PRN (Reason: sob) Patient Comments: inhale contents of 1 vial ( 3 milliliters ) in nebulizer by mouth... (REFER TO PRESCRIPTION NOTES). liothyronine 25 mcg tablet 25 mcg PO DAILY Patient Comments: TAKE 1 TABLET BY MOUTH ONCE DAILY FOR 90 DAYS tiotropium bromide [Spiriva with HandiHaler] 18 mcg capsule, w/inhalation device 18 mcg INHALATION DAILY Patient Comments: INHALE THE CONTENTS OF 1 CAPSULE TWICE EACH TIME VIA HANDIHALER ONCE DAILY cholecalciferol (vitamin D3) 25 mcg (1,000 unit) Capsule 25 mcg PO DAILY omega-3 fatty acids-vitamin E 1,000 mg Capsule 2 cap PO BID PreserVision AREDS [id number] Capsule 1 cap PO BID lisinopril [Zestril] 20 mg tablet 10 mg PO DAILY Hold Instructions: Resume on 03/18/22. carvedilol 6.25 mg Tablet 6.25 mg PO BIDCM 30 Days Qty: 60 0RF Jardiance 10 mg Tablet 10 mg PO DAILY 30 Days Qty: 30 0RF spironolactone 25 mg Tablet 25 mg PO DAILY 30 Days Qty: 30 0RF bumetanide 2 mg tablet 2 mg PO DAILY Qty: 30 0RF glimepiride 2 mg tablet 2 mg PO DAILY Qty: 3 0RF Hold Instructions: Resume on 05/04/23. Patient Comments: take 1 tablet by mouth once daily WITH FIRST MEAL OF THE DAY Rx Instructions: Hold if glucose less than 130 mg/dl pantoprazole [Protonix] 40 mg tablet,delayed release (DR/EC) 40 mg PO BID 90 Days Qty: 180 0RF sucralfate [Carafate] 1 gram tablet 1 g PO BID 30 Days Qty: 60 2RF Rx Instructions: Start BID administration after TID administration for 30 days has been completed. sucralfate 1 gram tablet 1 g PO TID 30 Days Qty: 90 0RF Rx Instructions: Start BID administration after 30 days of TID administration Primary Care Provider: Talya Nichols Referrals: Talya Nichols DO [Primary Care Provider] - Activity Restrictions/Additional Instructions: Your workup today shows that everything is stable compared to your previous admission. Continue all of your medications as directed by your doctor. Continue to wear your oxygen between 2 and 4 L as needed for shortness of breathsensation and return to the ER should you have any further concerns Disposition Disposition: Home, Self Care What to do if you have Problems For any increased pain, shortness of breath, bleeding, nausea or vomiting, chestpain, or any unexpected problems, contact your Primary Care Provider. Call [facility] ([phone]) or report to the closest Emergency Room. Call 911 if necessary. 05/01/23 0255 <Electronically signed by Frederick Logan DO> Cosigner Signature (if applicable): CC: Dr. Talya Nichols, ~ Signed [facility] Work Phone: [phone] Progress note Author Trell Kendrick [facility] April 26, 2023 8:01am Note Date/Time April 26, 2023 7:46am [facility] Medical Records Department [address] [place] [address] Progress Note - Cardiology 04/26/23739 MR#: [id number] Acct: [id number] Name: BEULAH BRIGHT Rep #:[id number] : 1940 82 From: Trell Kendrick MD PCP: Dr. Talya Nichols, Status:ADM IN Location: [place] [address] Subjective Subjective The patient was examined with him seated in the chair. He reports that he is feeling better he remains on 2 L nasal cannula which he has in his home environment. 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 Patient's I's and O's have been negative his weight is down 2 pounds. Objective Data Vital Signs: Vital Signs Temp Pulse Resp BP Pulse Ox O2 Del Method O2 Flow Rate 96.9 F L 80 20 H 121/47 H 94 Nasal Cannula 2 04/26/23 02:30 04/26/23 02:30 04/26/23 02:30 04/26/23 02:30 04/26/23 02:30 04/26/23 02:53 04/26/23 02:53 Oxygen Flow Rate (L/min) 2 Oxygen Delivery Method Nasal Cannula Weight: 190 lb 0.615 oz Body Mass Index (BMI) 31.6 Intake & Output: Intake and Output for Last 24 Hours 04/24/23 04/25/23 04/26/23 23:59 23:59 23:59 Intake Total 720 / 720 200 / 200 Output Total 850 / 850 1875 / 1875 700 / 700 Balance -850 / -850 -1155 / -1155 -500 / -500 Lab / Micro Data Attestation: I reviewed the patient's lab results. 04/25/23 07:00 04/25/23 07:00 Labs: Laboratory Results - last 24 hr 04/25/23 07:00: WBC 6.6, RBC 3.28 L, Hgb 8.9 L, Hct 29.0 L, MCV 88.4, MCH 27.1, MCHC 30.7 L, RDW Std Deviation 47.5 H, RDW Coeff of John 14.6, Plt Count 113 L, MPV 11.3, Immature Gran % (Auto) 0.300, Neut % (Auto) 68.9, Lymph % (Auto) 17.5 L, [place] % (Auto) 8.3, Eos % (Auto) 4.4, Baso % (Auto) 0.6, Absolute Neuts (auto)4.6, Absolute Lymphs (auto) 1.16, Nucleated RBC % 0, Sodium 144, Potassium 3.9, Chloride 104, Carbon Dioxide 32.0, Anion Gap 8, BUN 45 H, Creatinine 1.92 H, Estim Creat Clear Calc 29.62, Est GFR (MDRD) Af Amer 43 L, Est GFR (MDRD) Non-Af36 L, BUN/Creatinine Ratio 23.4 H, Glucose 129 H, Calcium 9.4, Phosphorus 2.4 L,Magnesium 1.6, Total Bilirubin 0.90, AST 17, ALT 13 L, Alkaline Phosphatase 80, Total Protein 7.0, Albumin 3.3, Globulin 3.7, Albumin/Globulin Ratio 0.9, Triglycerides 216 H, Cholesterol 170, LDL Cholesterol 94, VLDL Cholesterol 43 H,HDL Cholesterol 33 L, TSH 3.43 04/25/23 11:08: POC Glucose 180 H 04/25/23 16:22: POC Glucose 128 H 04/25/23 22:30: POC Glucose 157 H 04/26/23 06:11: POC Glucose 119 H Cardiology Labs/Tests 04/25/23 07:00: WBC 6.6, RBC 3.28 L, Hgb 8.9 L, Hct 29.0 L, MCV 88.4, MCH 27.1, MCHC 30.7 L, Plt Count 113 L, MPV 11.3, Immature Gran % (Auto) 0.300, Neut % (Auto) 68.9, Lymph % (Auto) 17.5 L, [place] % (Auto) 8.3, Eos % (Auto) 4.4, Baso % (Auto) 0.6, Absolute Neuts (auto) 4.6, Nucleated RBC % 0, Sodium 144, Potassium 3.9, Chloride 104, Carbon Dioxide 32.0, Anion Gap 8, BUN 45 H, Creatinine 1.92 H, Est GFR (MDRD) Af Amer 43 L, Est GFR (MDRD) Non-Af 36 L, BUN/Creatinine Ratio 23.4 H, Glucose 129 H, Calcium 9.4, Phosphorus 2.4 L, Magnesium 1.6, Total Bilirubin 0.90, Triglycerides 216 H, Cholesterol 170, LDL Cholesterol 94, VLDL Cholesterol 43 H, HDL Cholesterol 33 L Rhythm: EKG: ECHO: Stress Test: Cardiac Cath: PCI: CT Surgery: Holter monitor: EPS: PPM: CXR: Chest CT Scan: Physical Exam Const oriented x3 HEENT normocephalic Eyes EOMs intact bilaterally Neck no JVD Neck Narrative: No JVD at 90 degrees. Carotids: bruit Positive for left Chest inspection of chest normal Resp Auscultation: rhonchi left lower and right lower and diminished lung sounds diffuse Cardio regular rate, regular rhythm, S1 normal heart sound, S2 normal heart sound, no rub and no gallops Heart Sounds: murmur systolic II/ harsh left sternal border, right sternal border and neck GI soft to palpation Extremity no pedal edema Skin no rashes or lesions noted Neuro Neuro Narrative: Alert and oriented x 3 Psych mental status grossly normal Assessment & Plan Assessment/Plan (1) Acute on chronic heart failure with preserved ejection fraction (HFpEF): PLAN: The patient was instituted on Coreg and spironolactone as well as Jardiance yesterday. He is tolerating the medical regimen. His I's and O's have been negative and his weight is down 2 pounds. BUN and creatinine are fairly stable at 45 and creatinine at 1.92 giving him a GFR of 36. There is no new blood work this morning. The patient is tolerating his oxygen saturation onhis 2 L nasal cannula which he has in his home environment. The patient continues to have diffuse decrease in breath sounds and he has a significant component of primary lung disease related to exposure and smoking. The patient's heart failure with preserved ejection fraction is probably exacerbated by combination of his hypoxic event that led to his admission, his anemia related to his recent GI bleed, and mild aortic stenosis in the face of mild to moderate coronary artery disease. Given the patient's GI blood loss and his anemia he should be evaluated for irondepletion and replaced as indicated. This can be followed up by his lpn rn hospice in the [facility]. I went over again the importance of getting some blood work done in 1 week to evaluate his potassium and renal function (2) Renal insufficiency: PLAN: GFR of 36 the patient did have a basic metabolic panel done 1 week after discharge I went over the importance of this with him in detail given the changes in the medical regiment that we have made including adding spironolactone and the new loop diuretic with Bumex. (3) Nonrheumatic aortic (valve) stenosis: PLAN: The patient's murmur is consistent with mild aortic stenosis which was previously diagnosed on an echocardiogram back in March 2022. He denies any syncope or near syncope and is having no chest discomfort. (4) Essential hypertension: PLAN: Blood pressure is adequately controlled on his current medical therapy. (5) Anemia: QUALIFIERS: Anemia type: iron deficiency Iron deficiency anemia type: other iron deficiency Qualified Code(s): D50.8 - Other iron deficiency anemias PLAN: Anemia related to GI blood loss back in February treated by Dr. Joy thepatient should follow-up with his [facility] to determine if iron replacement therapy would be of benefit to help with his heart failure. PLAN: Plan From a cardiovascular standpoint the patient can be discharged to home. The patient should continue with his home oxygen. The patient needs to get a basic metabolic panel done in 1 week and follow-up with his [employer]. He should make certain he and includes his new medical regiment when he follows up with the [employer] and his l[facility] rn hospice at [facility]. Charges/Coding Visit Charges Inpatient E&M: 50530 Subs Hosp L3 04/26/23 0801 <Electronically signed by Trell Kendrick MD> Cosigner Signature (if applicable): CC: ~ Signed [facility] Work Phone: [phone]) 329-414902-14-2024 Progress note Author John Anders [facility] April 25, 2023 1:58pm Note Date/Time April 25, 2023 1:51pm [facility] Medical Records Department [address] [place] [address] Progress Note - Hospitalist 04/25/23 1348 MR#: [id number] Acct: [id number] Name: BEULAH BRIGHT Rep #:[id number] : 1940 82 From: John foster MD PCP: Dr. Talya Nichols, DO Status:ADM IN Location: [place] [address] Subjective Subjective Breathing little bit better, discussed the situation with his primary care doctor it does appear that he tends to make his own individual determinations inwhich medications he continues and does not continue. He decreases the dosages of his own medications without physician guidance despite multiple warnings as to possible outcomes. Objective Data Objective Data Vital Signs: Vital Signs Temp Pulse Resp BP Pulse Ox O2 Del Method O2 Flow Rate 97.9 F 94 16 136/53 H 97 Nasal Cannula 2 04/25/23 08:30 04/25/23 11:21 04/25/23 11:21 04/25/23 08:30 04/25/23 11:21 04/25/23 11:21 04/25/23 11:34 Oxygen Flow Rate (L/min) 2 Oxygen Delivery Method Nasal Cannula Weight: 192 lb 9.6 oz Body Mass Index (BMI) 32.0 Intake & Output: Intake and Output for Last 24 Hours 04/24/23 04/25/23 04/26/23 03:59 03:59 03:59 Intake Total 120 / 120 360 / 360 Output Total 1350 / 1350 300 / 300 Balance -1230 / -1230 60 / 60 Lab / Micro Data 04/25/23 07:00 04/25/23 07:00 Labs: Laboratory Results - last 24 hr 04/24/23 15:55: WBC 5.6, RBC 3.36 L, Hgb 9.3 L, Hct 30.1 L, MCV 89.6, MCH 27.7, MCHC 30.9 L, RDW Std Deviation 48.0 H, RDW Coeff of John 14.7 H, Plt Count 103 L,MPV 11.9, Immature Gran % (Auto) 0.200, Neut % (Auto) 76.7 H, Lymph % (Auto) 12.0 L, [place] % (Auto) 6.1, Eos % (Auto) 4.5, Baso % (Auto) 0.5, Absolute Neuts (auto) 4.3, Absolute Lymphs (auto) 0.67 L, Nucleated RBC % 0, Sodium 145, Potassium 4.1, Chloride 108 H, Carbon Dioxide 33.0 H, Anion Gap 4 L, BUN 43 H, Creatinine 2.00 H, Estim Creat Clear Calc 29.00, Est GFR (MDRD) Af Amer 41 L, Est GFR (MDRD) Non-Af 34 L, BUN/Creatinine Ratio 21.5 H, Glucose 200 H, Calcium 9.3, Troponin I High Sens 47, B-Natriuretic Peptide 143.1 H 04/24/23 21:03: Troponin I High Sens 239 H* 04/24/23 22:43: Troponin I High Sens 282 H* 04/25/23 02:41: Troponin I High Sens 334 H* 04/25/23 06:16: POC Glucose 130 H 04/25/23 07:00: WBC 6.6, RBC 3.28 L, Hgb 8.9 L, Hct 29.0 L, MCV 88.4, MCH 27.1, MCHC 30.7 L, RDW Std Deviation 47.5 H, RDW Coeff of John 14.6, Plt Count 113 L, MPV 11.3, Immature Gran % (Auto) 0.300, Neut % (Auto) 68.9, Lymph % (Auto) 17.5 L, [place] % (Auto) 8.3, Eos % (Auto) 4.4, Baso % (Auto) 0.6, Absolute Neuts (auto)4.6, Absolute Lymphs (auto) 1.16, Nucleated RBC % 0, Sodium 144, Potassium 3.9, Chloride 104, Carbon Dioxide 32.0, Anion Gap 8, BUN 45 H, Creatinine 1.92 H, Estim Creat Clear Calc 29.62, Est GFR (MDRD) Af Amer 43 L, Est GFR (MDRD) Non-Af36 L, BUN/Creatinine Ratio 23.4 H, Glucose 129 H, Calcium 9.4, Phosphorus 2.4 L,Magnesium 1.6, Total Bilirubin 0.90, AST 17, ALT 13 L, Alkaline Phosphatase 80, Total Protein 7.0, Albumin 3.3, Globulin 3.7, Albumin/Globulin Ratio 0.9, Triglycerides 216 H, Cholesterol 170, LDL Cholesterol 94, VLDL Cholesterol 43 H,HDL Cholesterol 33 L, TSH 3.43 04/25/23 11:08: POC Glucose 180 H Micro: Microbiology 04/24/23 16:54 Mucosa - Nasopharyngeal SARS-CoV-2, Influenza & RSV (PCR) - Final Radiography Diagnostic Testing: Radiology Impression Chest X-Ray 04/24/23 17:08 IMPRESSION: Chronic prominence of the lung interstitium. Electronically Signed: John Martinez, at 17:33 EST , Rhythm Strip Rhythm Strip: Sinus Rhythm Rate: 100 Physical Exam Narrative General: Alert, Oriented x3, Cooperative, No apparent distress HEENT: Atraumatic, PERRLA, EOMI, Normocephalic Oral: Moist Mucosa Neck: Supple, No JVD Lungs: Diminished, Normal air movement, No rhonchi, No wheeze, mild bilateral crackles Cardiovascular: Regular rate, Regular Rhythm, Normal S1, Normal S2, No murmurs Abdomen: Soft, Non Tender, Non-Distended, No Hepato-splenomegaly Extremities: Trace edema, Capillary Refill Less than 3 Seconds Skin: No rashes, No breakdown Musculoskeletal: No Tenderness to Palpation of Joints or Extremities Neurological: No focal neurological deficits, Motor Exam 5/5 strength throughout, Sensory exam intact to light touch and pain Psych/Mental Status: Normal Affect, Appropriate Assessment & Plan Assessment/Plan (1) Acute dyspnea: (2) Acute on chronic heart failure with preserved ejection fraction (HFpEF): (3) Anemia: QUALIFIERS: Anemia type: iron deficiency Iron deficiency anemia type: other iron deficiency Qualified Code(s): D50.8 - Other iron deficiency anemias (4) Hypoxia: PLAN: Plan 1. Acute on chronic hypoxia secondary to acute on chronic diastolic CHF/HTN/HLD ? Appreciate cardiology's assistance ? Continue with Bumex as well as Aldactone and Jardiance ? EF 65% with mild concentric LVH and mild to moderate aortic stenosis ? Patient is making his own medication adjustments so we will need to be firm inhis education about his medications ? Continue with his cholesterol medications 2. Chronic hypoxic respiratory failure from COPD ? She wears 2 L at baseline ? Will continue to monitor 3. DM2 ? Stable ? Can continue with insulin ? Accu-Cheks ACHS ? We will monitor make adjustments as necessary ? Will hold his home medications 4. Chronic anemia of chronic thrombocytopenia ? Unclear as to the etiology ? Will continue to monitor 5. Hypothyroidism ? Stable ? Continue with home medications ? TSH was 3.43 DVT: Heparin Charges/Coding Visit Charges Inpatient E&M: 44205 Subs Hosp L2 04/25/23 2283 <Electronically signed by John Anders MD> Cosigner Signature (if applicable): CC: ~ Signed [facility] Work Phone: [phone] Consult note Author Trell Kendrick [facility] April 25, 2023 9:09am Note Date/Time April 25, 2023 9:03am [facility] Medical Records Department [address] [place] [address] Consultation - Cardiology 04/25/23 0841 MR#: [id number] Acct: [id number] Name: BEULAH BRIGHT Rep #:[id number] : 1940 82 From: Trell Kendrick MD PCP: Dr. Talya Nichols, DO Status:ADM IN Location: [place] [address] Assessment & Plan Assessment/Plan (1) Acute on chronic heart failure with preserved ejection fraction (HFpEF): PLAN: The patient presented with what appears to be acute on chronic heart failure with preserved ejection fraction. He was profoundly hypoxic and had chest x-ray consistent with hilar edema. He is much improved with supplemental oxygen and IV diuresis. The patient was not taking by his home med list beta-greta and had been switched from furosemide to Lasix due to gout. He is unable to weigh himself in his home environment as his vision is too poor to read the scales. He does have a daughter that helps him with his meds. The patient has changed his cardiovascular care from the [facility] to [place] where he sees a lpn rn hospice from [facility]. The patient also carries a history of chronic renal insufficiency with a creatinine clearance of 34. He also had a recent GI bleed and is no longer on aspirin or any antiplatelet therapy. The patient also carries a history of carotid artery disease with bilateral stenoses greater than 70% on an ultrasounddone February 2023. The patient's last echocardiogram showed left-ventricular ejection fraction of 65% with moderate left ventricular prophy he has a history of aortic stenosis with a peak gradient of 47 mean of 25 and mild aortic insufficiency. This was last checked in February 2023. The patient also carries a history of hypertension and known moderate coronary disease by heart catheterization done March 2022. That cath revealed left main to be 25% stenosed LAD had mild luminal irregularities the first diagonal was 50% stenosed the lateral circumflex had mild luminal irregularities and right coronary had mild luminal irregularities. He has been treated medically. The patient also carries a history of diabetes hypothyroidism and COPD. The patient is a candidate for additional beta-greta therapy, spironolactone, and Jardiance. (2) Essential hypertension: PLAN: The patient's blood pressure has run between 130 and 170 systolic. However he must consider that he has moderate aortic stenosis which is increasing the pressures a mean of 25 and a peak gradient of 47. This gives youan added pressure on the left ventricular chamber. The blood pressure should betitrated to a systolic in the 110-120 range as tolerated. I will continue the current medical regimen as is with the exception of restarting the Coreg 6.25 mgtwice daily as tolerated. (3) Renal insufficiency: PLAN: The patient's creatinine clearance is 34. He sees nephrology. He is scheduled for some type of procedure at in [place] in the near future. (4) Anemia: QUALIFIERS: Anemia type: iron deficiency Iron deficiency anemia type: other iron deficiency Qualified Code(s): D50.8 - Other iron deficiency anemias PLAN: The patient's hemoglobin has been as low as 7.5 back in March 03. He was evaluated by GI and his aspirin has been discontinued. His hemoglobin on today's admission is 8.5. He should avoid anticoagulation and antiplatelet therapy at this time. (5) Elevated troponin: PLAN: The troponins are likely elevated due to demand ischemia in a patient withmoderate coronary artery disease aortic valve stenosis hypertension and heart failure with preserved ejection fraction and hypoxia. I do not feel that further invasive or noninvasive evaluation of the current cardiac status is indicated at this time. The secondary causes should be addressed including his hypoxia his heart failure and potentially his anemia. (6) Nonrheumatic aortic (valve) stenosis: PLAN: The patient has moderate aortic stenosis with a peak gradient of 47 and a mean of 25. This is being followed by the [facility] according tothe patient's report. (7) Atherosclerotic heart disease of [place] coronary artery without angina pectoris: QUALIFIERS: [place] vs. transplanted heart: [place] heart QualifiedCode(s): I25.10 - Atherosclerotic heart disease of [place] coronary artery without angina pectoris PLAN: The patient had moderate disease on a cath March 2022 left main was 25% LAD had mild luminal irregularities the diagonal 1 had 50% stenosis the lateral circumflex had mild irregularities as did the right coronary artery. The patient has been controlled medically. I do not feel that the current troponin bumps are related to an acute type I non-STEMI. The patient has no ECG changes and multiple other explanations for the small bump in the high-sensitivity troponins. (8) HLD (hyperlipidemia): QUALIFIERS: Hyperlipidemia type: mixed hyperlipidemia Qualified Code(s): E78.2 - Mixed hyperlipidemia PLAN: The patient reports this is managed by the primary service and [facility] he is on intensive statin therapy which should be continued as tolerated. (9) Carotid artery stenosis: QUALIFIERS: Laterality: bilateral Qualified Code(s): I65.23 - Occlusion and stenosis of bilateral carotid arteries PLAN: Carotid ultrasound revealed bilateral greater than 70% stenoses in February 2023. The patient is not a candidate for antiplatelet therapy at this point in time the patient should be followed by the [facility] forlong-term management. He denies any TIA type symptoms to me at this time however there is a history of a TIA in his medical record. PLAN: Plan 1. Add spironolactone 25 mg every morning and Coreg 6.25 mg twice daily to the medical regimen. 2. Add Jardiance 10 mg daily and monitor for hypoglycemic event. 3. Make certain a basic metabolic panel is checked 1 week after discharge to monitor him for his potassium and renal status. 4. The carotids need to be followed up by the [facility]. 5. The patient is to be maintained on his secondary risk factors for his lipid management as tolerated with the atorvastatin 80 mg daily and monitored through his primary care service. 6. From a cardiovascular standpoint the patient should be able to be dischargedonce his meds are titrated and he is weaned off oxygen and ambulatory in the halls. Please call us if further assistance is needed the patient will follow-up with his [facility] after discharge at his request. HPI Consult Data Date of Consult: 04/25/23 HPI Narrative Reason for Consultation: SOB presumed CHF exacerbation HPI Narrative: BEULAH BRIGHT, is a 82 M who presents with what sounds to be acute decompensation of his heart failure with preserved ejection fraction. [facility] and walking out developed profound dyspnea on exertion and really never recovered. He came to the emergency room complaining of shortness of breath and was admitted to the hospital. Who reports that sincehe was switched from furosemide to Lasix he has had trouble with maintaining hisvolume status. This was done by his home health aide when he was complaining ofgout. He has been sleeping in a recliner for the last 6 years. Reports he doesnot have much in the way of lower extremity edema and denies any chest pain. The patient reports he is feeling much better after IV Lasix and supplemental oxygen. The patient back in June 2022 was being evaluated in the [facility] office. He was on beta-greta therapy at that point in time but was no longer on it when he was admitted this time. The patient also carries a history of chronic renal insufficiency. His EKG on admission showed sinus tachycardia at aheart rate of 111 bpm with a first-degree AV block and nonspecific ST-T wave changes which was unchanged from a previous EKG done April 07, 2023. His BNP was 143 and his troponins went from 47-2 82. His GFR is 34. The patient had a carotid ultrasound done February 2023 which showed greater than 70% stenosis bilaterally. He denies any TIA type symptoms to me. The patient's last echo done February 2023 showed an left-ventricular ejection fraction of 65% with moderate left ventricular prophy. He had moderate aortic stenosis with peak gradient of 47 mean gradient of 25 and mild aortic insufficiency. His telemetry since admission shows normal sinus rhythm with a heart rate between 90 and 105. [facility] Medical History Acute and chronic respiratory failure with hypoxia Aortic valve stenosis, acquired Atherosclerotic heart disease of lyt[place] coronary artery without angina pectoris CAD (coronary artery disease) Cardiology follow-up encounter Chronic respiratory failure with hypoxia COPD (chronic obstructive pulmonary disease) Diabetes Diabetes mellitus, type 2 Diastolic CHF Former smoker Former tobacco use High cholesterol History of CAD (coronary artery disease) History of echocardiogram History of GI bleed History of left heart catheterization (LHC) (~03/15/22) HLD (hyperlipidemia) HTN (hypertension) Hypertension Hypothyroidism Kidney disease Loss of hearing Low iron Mild left ventricular hypertrophy Myocardial infarct No natural teeth Nonrheumatic aortic (valve) stenosis Obesity On home oxygen therapy Polyarthralgia Poor historian Shortness of breath on exertion Symptomatic anemia Syncope Thyroid disease TIA (transient ischemic attack) Wears glasses Home Medications atorvastatin 80 mg tablet 80 mg PO DAILY CHOLESTEROL 05/02/21 [History Last Taken 02/14/23] cholecalciferol (vitamin D3) 25 mcg (1,000 unit) capsule 25 mcg PO DAILY /21/22 [History Last Taken 02/15/23] ipratropium 0.5 mg-albuterol 3 mg (2.5 mg base)/3 mL nebulization soln 3 ml inhalation 4X/DAY PRN sob 05/02/21 [History Last Taken 02/15/23] liothyronine 25 mcg tablet 25 mcg PO DAILY THYROID 05/02/21 [History Last Taken 02/15/23] omega-3 fatty acids-vitamin E 1,000 mg capsule 2 cap PO BID SUPPLEMENT 05/02/21 [History Last Taken 02/15/23] tiotropium bromide 18 mcg capsule with inhalation device (Spiriva with HandiHaler) 18 mcg inhalation DAILY SOB 05/02/21 [History Last Taken 02/15/23] vitamins A,C,D-wdcq-dbmeff 4,296 mcg-226 mg-90 mg capsule (PreserVision AREDS) 1cap PO BID vitamin 12/13/21 [History Last Taken 02/15/23] lisinopril 20 mg tablet (Zestril) 10 mg PO DAILY blood pressure 03/12/22 [History Last Taken 02/15/23] glimepiride 2 mg tablet 2 mg PO DAILY DM #3 tabs 03/09/23 [Rx Last Taken 02/15/23] pantoprazole 40 mg tablet,delayed release (Protonix) 40 mg PO BID 90 days #180 tabs 03/09/23 [Rx Last Taken Unknown] sucralfate 1 gram tablet 1 g PO TID 30 days #90 tabs 03/23/23 [Rx Last Taken Unknown] sucralfate 1 gram tablet (Carafate) 1 g PO BID 30 days #60 tabs 03/23/23 [Rx Last Taken Unknown] Allergy/AdvReac Type Severity Reaction Status Date / Time codeine AdvReac Upset Verified 04/07/23 13:44 Stomach Family History Mother CVA (cerebral vascular accident) Heart disease Myocardial infarction Hx of CABG Hypertension Father CVA (cerebral vascular accident) Heart disease Surgical History S/P cataract extraction Social History household members: none housing: house Smoking Status: Former smoker how long ago did patient quit smoking: Quit 2010, prior 1 ppd since teen. alcohol intake: former year quit: 2010 substance use type: does not use ROS Constitutional Constitutional: Reports as per HPI Eyes Eyes: Reports systems reviewed and no addt'l complaints, except as documented ENT HEENT: Reports systems reviewed and no addt'l complaints, except as documented Cardiovascular Cardiovascular: Reports as per HPI Respiratory/Chest Respiratory/Chest: Reports as per HPI Gastrointestinal Gastrointestinal: Reports systems reviewed and no addt'l complaints, except as documented Genitourinary Genitourinary: Reports systems reviewed and no addt'l complaints, except as documented Musculoskeletal Musculoskeletal: Reports systems reviewed and no addt'l complaints, except as documented Integumentary Integumentary: Reports systems reviewed and no addt'l complaints, except as documented Neurologic Neurologic: Reports systems reviewed and no addt'l complaints, except as documented Psychiatric Psychiatric: Reports systems reviewed and no addt'l complaints, except as documented Endocrine Endocrinology: Reports systems reviewed and no addt'l complaints, except as documented Hematologic/Lymphatic Hematologic/Lymphatic: Reports systems reviewed and no addt'l complaints, exceptas documented Allergic/Immunologic Allergic/Immunologic: Reports systems reviewed and no addt'l complaints, except as documented Physical Exam Const oriented x3 HEENT normocephalic Eyes EOMs intact bilaterally Neck no JVD Carotids: bruit Positive for right Chest inspection of chest normal Resp normal respiratory effort Resp Narrative: On 2 L nasal cannula. Auscultation: wheezes expiratory wheezes and posterior and diminished lung sounds bilateral lower Cardio regular rate Rhythm: regular rhythm Heart Sounds: S1 normal, S2 normal and murmur systolic III/ harsh left sternalborder and right sternal border to the neck and to carotid arteries; Negative for click or gallop GI soft to palpation Extremity no pedal edema Skin no rashes or lesions noted Neuro Neuro Narrative: Alert and oriented x 3 Psych mental status grossly normal Risk Stratification Risk Stratification Applicable: Yes Age >/= 65: Yes >/= 3 CAD Risk Factors (HTN, HLD, DM, family hx of CAD, or current smoker): Yes Aspirin Use in the Past 7 Days: No Severe Angina (>/= episodes in 24 hours): No EKG ST Changes >/= 0.5mm: No Positive Cardiac Marker: Yes MARGARITO Risk Stratification Score: 3 MARGARITO % Risk: 13% Risk Charges/Coding Visit Charges Inpatient E&M: 24069 Init Hosp L3 Objective Data Vital Signs: Vital Signs Temp Pulse Resp BP Pulse Ox O2 Del Method O2 Flow Rate 97.5 F L 102 H 22 H 131/60 H 98 Nasal Cannula 2 04/25/23 02:30 04/25/23 07:43 04/25/23 07:43 04/25/23 02:30 04/25/23 07:43 04/25/23 08:08 04/25/23 08:08 Oxygen Flow Rate (L/min) 2 Oxygen Delivery Method Nasal Cannula Weight: 192 lb 9.6 oz Body Mass Index (BMI) 32.0 Intake & Output: Intake and Output for Last 24 Hours 04/23/23 04/24/23 04/25/23 23:59 23:59 23:59 Intake Total 240 / 240 Output Total 850 / 850 500 / 500 Balance -850 / -850 -260 / -260 Lab / Micro Data Attestation: I reviewed the patient's lab results. 04/25/23 07:00 04/25/23 07:00 Labs: Laboratory Results - last 24 hr 04/24/23 15:55: WBC 5.6, RBC 3.36 L, Hgb 9.3 L, Hct 30.1 L, MCV 89.6, MCH 27.7, MCHC 30.9 L, RDW Std Deviation 48.0 H, RDW Coeff of John 14.7 H, Plt Count 103 L,MPV 11.9, Immature Gran % (Auto) 0.200, Neut % (Auto) 76.7 H, Lymph % (Auto) 12.0 L, [place] % (Auto) 6.1, Eos % (Auto) 4.5, Baso % (Auto) 0.5, Absolute Neuts (auto) 4.3, Absolute Lymphs (auto) 0.67 L, Nucleated RBC % 0, Sodium 145, Potassium 4.1, Chloride 108 H, Carbon Dioxide 33.0 H, Anion Gap 4 L, BUN 43 H, Creatinine 2.00 H, Estim Creat Clear Calc 29.00, Est GFR (MDRD) Af Amer 41 L, Est GFR (MDRD) Non-Af 34 L, BUN/Creatinine Ratio 21.5 H, Glucose 200 H, Calcium 9.3, Troponin I High Sens 47, B-Natriuretic Peptide 143.1 H 04/24/23 21:03: Troponin I High Sens 239 H* 04/24/23 22:43: Troponin I High Sens 282 H* 04/25/23 02:41: Troponin I High Sens 334 H* 04/25/23 06:16: POC Glucose 130 H 04/25/23 07:00: WBC 6.6, RBC 3.28 L, Hgb 8.9 L, Hct 29.0 L, MCV 88.4, MCH 27.1, MCHC 30.7 L, RDW Std Deviation 47.5 H, RDW Coeff of John 14.6, Plt Count 113 L, MPV 11.3, Immature Gran % (Auto) 0.300, Neut % (Auto) 68.9, Lymph % (Auto) 17.5 L, [place] % (Auto) 8.3, Eos % (Auto) 4.4, Baso % (Auto) 0.6, Absolute Neuts (auto)4.6, Absolute Lymphs (auto) 1.16, Nucleated RBC % 0 Micro: Microbiology 04/24/23 16:54 Mucosa - Nasopharyngeal SARS-CoV-2, Influenza & RSV (PCR) - Final Rhythm Strip Rhythm Strip: Sinus Rhythm Rate: 100 Cardiology Labs/Tests 04/24/23 15:55: WBC 5.6, RBC 3.36 L, Hgb 9.3 L, Hct 30.1 L, MCV 89.6, MCH 27.7, MCHC 30.9 L, Plt Count 103 L, MPV 11.9, Immature Gran % (Auto) 0.200, Neut % (Auto) 76.7 H, Lymph % (Auto) 12.0 L, [place] % (Auto) 6.1, Eos % (Auto) 4.5, Baso % (Auto) 0.5, Absolute Neuts (auto) 4.3, Nucleated RBC % 0, Sodium 145, Potassium 4.1, Chloride 108 H, Carbon Dioxide 33.0 H, Anion Gap 4 L, BUN 43 H, Creatinine 2.00 H, Est GFR (MDRD) Af Amer 41 L, Est GFR (MDRD) Non-Af 34 L, BUN/Creatinine Ratio 21.5 H, Glucose 200 H, Calcium 9.3, B-Natriuretic Peptide 143.1 H 04/25/23 07:00: WBC 6.6, RBC 3.28 L, Hgb 8.9 L, Hct 29.0 L, MCV 88.4, MCH 27.1, MCHC 30.7 L, Plt Count 113 L, MPV 11.3, Immature Gran % (Auto) 0.300, Neut % (Auto) 68.9, Lymph % (Auto) 17.5 L, [place] % (Auto) 8.3, Eos % (Auto) 4.4, Baso % (Auto) 0.6, Absolute Neuts (auto) 4.6, Nucleated RBC % 0 Rhythm: EKG: ECHO: Stress Test: Cardiac Cath: PCI: CT Surgery: Holter monitor: EPS: PPM: CXR: Chest CT Scan: Radiography Diagnostic Testing: Radiology Impression Chest X-Ray 04/24/23 17:08 IMPRESSION: Chronic prominence of the lung interstitium. Electronically Signed: John Martinez, at 17:33 EST Reading Location ID and State: [id number] Tel , Service support , EKG Initial EKG: Attestation: I personally reviewed and interpreted this EKG as follows: Interpretation: Sinus tachycardia with first-degree AV block at 111 bpm normal axis nonspecific ST-T wave changes. This is unchanged from April 07, 2023 ECG. 04/25/23908 <Electronically signed by Trell Kendrick MD> Cosigner Signature (if applicable): CC: Dr. Michelle Washburn DO; Dr. Talya Nichols DO; Dr. Trell Kendrick MD~ Signed [facility] Work Phone: [phone] History and physical note Author Michelle Washburn [facility] April 24, 2023 8:07pm Note Date/Time April 24, 2023 8:07pm [facility] Medical Records Department [address] [place] [id number] H&P Exam - Hospitalist 04/24/231948 MR#: [id number] Acct: [id number] Name: BEULAH BRIGHT Rep #:[id number] : 1940 82 From: Michelle Washburn DO PCP: Dr. Talya Nichols DO Status:ADM IN Location: [place] [id number] HPI - General General Date of Admission: 04/24/23 Date of Service: 04/24/23 Chief Complaint: Shortness of breath HPI Narrative BEULAH BRIGHT, is a 82 M who presented to the emergency department at [facility] on 04/24/2023 complaining of shortness of breath. Patient stated his shortness of breath had started today after he walked out of his nephrology office appointment. He stated he was barely able to make at home andthen decided to come the emergency department because he was so short of breath. He indicated he was fine before that. He typically sleeps in a recliner and has been doing so for 6 years as he was taking care of his who was in hospice. She has since been . He indicates he had multiple hospitalizations since somebody took him off his torsemide and replaced it with Lasix. He feels that the Lasix does not work as well. I did ask him why they took him off his torsemide he stated it was because it gave him gout. He reported recently his primary care physician instructed him to take 3 tablets ofLasix a day but this did not work either. He did not notice any increased urinary output with the increased dose of Lasix. He is not sure if he is gainedweight as he is not able to see the numbers on his scale anymore. He denies anyworsening swelling and again he sleeps in a recliner so he does not complain anyparoxysmal nocturnal dyspnea or orthopnea. He is on chronic oxygen at 2 L and is compliant with this. He states he does not have a known history of sleep apnea. He had a recent echocardiogram done in February 2023 that demonstrated mild concentric LVH, left ventricular EF of 65% with moderate diffuse aortic valve calcification and moderate aortic stenosis with mild aortic valve insufficiency. Vital signs on presentation showed a temperature of 98.7, heart rate 113, blood pressure was 175/65, respiratory rate was 22 and oxygen saturations were 95% on 4 L nasal cannula. I do not have an oxygen saturation on his baseline of 2 L. His CBC shows a normal white count with a stable anemia having a hemoglobin of 9.3 and chronic thrombocytopenia with a platelet count of 103,000 which is his baseline. He has a minimal left shift with a 76.7% neutrophilia. His chemistrypanel shows chronic stable renal dysfunction having a BUN of 43 and a serum creatinine of 2.0. Serum glucose was 200. Troponin was 47 and his BNP was 143.1. Given his obesity his BNP is likely higher when adjusted for his weight. Chest x-ray is consistent with bilateral congestion and prominence in the interstitium. EKG shows first-degree heart block with a prolonged WA interval, normal QT interval with mild tachycardia and no ST-T wave changes concerning foracute ischemia. He was given IV Lasix 40 mg x 1 dose in the emergency department and request foradmission was made. As noted the patient is concerned that his Lasix is not working so I will transition to Bumex and give another 2 mg at the time of admission. [facility] Medical History Acute and chronic respiratory failure with hypoxia Aortic valve stenosis, acquired Atherosclerotic heart disease of [place] coronary artery without angina pectoris CAD (coronary artery disease) Cardiology follow-up encounter Chronic respiratory failure with hypoxia COPD (chronic obstructive pulmonary disease) Diabetes Diabetes mellitus, type 2 Diastolic CHF Former smoker Former tobacco use High cholesterol History of CAD (coronary artery disease) History of echocardiogram History of GI bleed History of left heart catheterization (LHC) (~03/15/22) HLD (hyperlipidemia) HTN (hypertension) Hypertension Hypothyroidism Kidney disease Loss of hearing Low iron Mild left ventricular hypertrophy Myocardial infarct No natural teeth Nonrheumatic aortic (valve) stenosis Obesity On home oxygen therapy Polyarthralgia Poor historian Shortness of breath on exertion Symptomatic anemia Syncope Thyroid disease TIA (transient ischemic attack) Wears glasses Home Medications atorvastatin 80 mg tablet 80 mg PO DAILY CHOLESTEROL 05/02/21 [History Last Taken 02/14/23] cholecalciferol (vitamin D3) 25 mcg (1,000 unit) capsule 25 mcg PO DAILY togyjnd04/21/22 [History Last Taken 02/15/23] ipratropium 0.5 mg-albuterol 3 mg (2.5 mg base)/3 mL nebulization soln 3 ml inhalation 4X/DAY PRN sob 05/02/21 [History Last Taken 02/15/23] liothyronine 25 mcg tablet 25 mcg PO DAILY THYROID 05/02/21 [History Last Taken 02/15/23] omega-3 fatty acids-vitamin E 1,000 mg capsule 2 cap PO BID SUPPLEMENT 05/02/21 [History Last Taken 02/15/23] tiotropium bromide 18 mcg capsule with inhalation device (Spiriva with HandiHaler) 18 mcg inhalation DAILY SOB 05/02/21 [History Last Taken 02/15/23] vitamins A,C,T-efwv-yssopb 4,296 mcg-226 mg-90 mg capsule (PreserVision AREDS) 1cap PO BID vitamin 12/13/21 [History Last Taken 02/15/23] lisinopril 20 mg tablet (Zestril) 10 mg PO DAILY blood pressure 03/12/22 [History Last Taken 02/15/23] furosemide 40 mg tablet (Lasix) 40 mg PO DAILY diuretic #90 tabs 07/06/22 [Rx Last Taken 02/15/23] glimepiride 2 mg tablet 2 mg PO DAILY DM #3 tabs 03/09/23 [Rx Last Taken 02/15/23] pantoprazole 40 mg tablet,delayed release (Protonix) 40 mg PO BID 90 days #180 tabs 03/09/23 [Rx Last Taken Unknown] sucralfate 1 gram tablet 1 g PO TID 30 days #90 tabs 03/23/23 [Rx Last Taken Unknown] sucralfate 1 gram tablet (Carafate) 1 g PO BID 30 days #60 tabs 03/23/23 [Rx Last Taken Unknown] Allergy/AdvReac Type Severity Reaction Status Date / Time codeine AdvReac Upset Verified 04/07/23 13:44 Stomach Family History Mother CVA (cerebral vascular accident) Heart disease Myocardial infarction Hx of CABG Hypertension Father CVA (cerebral vascular accident) Heart disease Surgical History S/P cataract extraction Social History household members: none housing: house Smoking Status: Former smoker how long ago did patient quit smoking: Quit 2010, prior 1 ppd since teen. alcohol intake: former year quit: 2010 substance use type: does not use ROS Constitutional Constitutional: Reports fatigue and weakness; Denies anorexia, change in weight,chills, fever(s), malaise, night sweats or other Eyes Eyes: Denies blurry vision, change in eye color, change in vision, discharge from eye(s), double vision, erythema, eye pain, loss of vision or other ENT HEENT: Reports abnormal hearing; Denies dysphagia, ear pain, epistaxis, headache(s), hearing loss, nasal congestion, nasal discharge, post nasal drip, sinus pressure, sore throat or other Cardiovascular Cardiovascular: Reports dyspnea on exertion; Denies chest pain, claudication, edema, lightheadedness, orthopnea, palpitations, paroxysmal nocturnal dyspnea, rapid heart rate, syncope or other Respiratory/Chest Respiratory/Chest: Reports dyspnea, shortness of breath at rest and shortness ofbreath with exertion; Denies cough, excessive phlegm production, hemoptysis, productive cough, wheezing or other Gastrointestinal Gastrointestinal: Denies abdominal pain, coffee ground emesis, constipation, diarrhea, dyspepsia, hematemesis, hematochezia, loose stools, melena, nausea, vomiting or other Genitourinary Genitourinary: Denies burning urination, difficulty urinating, dysuria, hematuria, nocturia, urinary frequency, urinary hesitancy, urinary incontinence,urinary urgency or other Musculoskeletal Musculoskeletal: Reports back pain, joint pain and joint stiffness; Denies arthralgias, joint swelling, myalgias, neck pain or other Neurologic Neurologic: Denies abnormal gait, abnormal speech, confusion, disequilibrium, dizziness, focal weakness, headache(s), numbness, paresthesias, seizure-like activity, seizures, syncope, tingling, tremor(s) or other Psychiatric Psychiatric: Denies anxiety, depression, homicidal ideation, suicidal ideation or other Endocrine Endocrinology: Denies change in body appearance, cold intolerance, excessive sweating, heat intolerance, polydipsia, polyuria or other Hematologic/Lymphatic Hematologic/Lymphatic: Denies anemia, easy bleeding, easy bruising, lymphadenopathy or other Allergic/Immunologic Allergic/Immunologic: Denies rhinitis, hives, eczemia, asthma or other Vital Signs Vital Signs Vital Signs: 04/24/23 15:35 04/24/23 15:39 04/24/23 15:39 Temperature 98.7 F 98.7 F Temperature Source Temporal Temporal Pulse Rate 113 H 113 H Respiratory Rate 22 H 24 H Respiratory Effort Short of Breath Respiratory Depth Shallow Respiratory Pattern Tachypnea Blood Pressure 175/65 H 175/65 H Blood Pressure Mean 101 101 Pulse Ox 95 97 Oxygen Delivery Method Nasal Cannula Nasal Cannula Nasal Cannula Oxygen Flow Rate (L/min) 4 4 4 04/24/23 18:29 04/24/23 19:03 04/24/23 16:27 Temperature 97.9 F Temperature Source Pulse Rate 92 103 H Respiratory Rate 20 H 22 H Respiratory Effort Respiratory Depth Respiratory Pattern Blood Pressure 168/67 H Blood Pressure Mean 100 Pulse Ox 97 96 Oxygen Delivery Method Nasal Cannula Oxygen Flow Rate (L/min) 4 04/24/23 16:30 04/24/23 16:40 04/24/23 16:45 Temperature Temperature Source Pulse Rate 103 H 109 H 105 H Respiratory Rate 24 H 25 H 29 H Respiratory Effort Respiratory Depth Respiratory Pattern Blood Pressure 152/59 H 165/63 H Blood Pressure Mean 87 93 Pulse Ox 93 94 Oxygen Delivery Method Oxygen Flow Rate (L/min) 04/24/23 16:50 04/24/23 17:00 04/24/23 17:10 Temperature Temperature Source Pulse Rate 102 H 102 H 99 Respiratory Rate 25 H 27 H 22 H Respiratory Effort Respiratory Depth Respiratory Pattern Blood Pressure 170/64 H Blood Pressure Mean 96 Pulse Ox 96 96 97 Oxygen Delivery Method Oxygen Flow Rate (L/min) 04/24/23 17:15 04/24/23 17:20 04/24/23 17:30 Temperature Temperature Source Pulse Rate 100 100 101 H Respiratory Rate 25 H 25 H 28 H Respiratory Effort Respiratory Depth Respiratory Pattern Blood Pressure 176/65 H Blood Pressure Mean 98 Pulse Ox 94 96 96 Oxygen Delivery Method Oxygen Flow Rate (L/min) 04/24/23 17:31 04/24/23 17:40 04/24/23 17:45 Temperature Temperature Source Pulse Rate 100 Respiratory Rate 15 Respiratory Effort Respiratory Depth Respiratory Pattern Blood Pressure 169/65 H 165/62 H Blood Pressure Mean 96 92 Pulse Ox 96 92 96 Oxygen Delivery Method Oxygen Flow Rate (L/min) 04/24/23 17:50 04/24/23 18:00 04/24/23 18:02 Temperature Temperature Source Pulse Rate Respiratory Rate Respiratory Effort Respiratory Depth Respiratory Pattern Blood Pressure 159/136 H Blood Pressure Mean 143 Pulse Ox 95 95 92 Oxygen Delivery Method Oxygen Flow Rate (L/min) 04/24/23 18:10 04/24/23 18:15 04/24/23 18:21 Temperature Temperature Source Pulse Rate Respiratory Rate Respiratory Effort Respiratory Depth Respiratory Pattern Blood Pressure 152/81 H Blood Pressure Mean 103 Pulse Ox 96 85 Oxygen Delivery Method Oxygen Flow Rate (L/min) 04/24/23 18:30 04/24/23 18:40 04/24/23 18:45 Temperature Temperature Source Pulse Rate 101 H 99 97 Respiratory Rate 26 H 25 H 25 H Respiratory Effort Respiratory Depth Respiratory Pattern Blood Pressure 175/70 H 168/64 H Blood Pressure Mean 100 95 Pulse Ox 96 97 97 Oxygen Delivery Method Oxygen Flow Rate (L/min) 04/24/23 18:50 04/24/23 19:00 04/24/23 19:10 Temperature Temperature Source Pulse Rate 97 97 105 H Respiratory Rate 22 H 23 H 19 H Respiratory Effort Respiratory Depth Respiratory Pattern Blood Pressure 168/67 H Blood Pressure Mean 96 Pulse Ox 97 97 95 Oxygen Delivery Method Oxygen Flow Rate (L/min) 04/24/23 19:15 04/24/23 19:20 04/24/23 19:30 Temperature Temperature Source Pulse Rate 102 H 109 H 96 Respiratory Rate 23 H 26 H 27 H Respiratory Effort Respiratory Depth Respiratory Pattern Blood Pressure 169/155 H 136/108 H Blood Pressure Mean 161 115 Pulse Ox 96 92 98 Oxygen Delivery Method Oxygen Flow Rate (L/min) 04/24/23 19:40 04/24/23 19:45 Temperature Temperature Source Pulse Rate 99 107 H Respiratory Rate 27 H 27 H Respiratory Effort Respiratory Depth Respiratory Pattern Blood Pressure 90/72 Blood Pressure Mean 79 Pulse Ox 98 94 Oxygen Delivery Method Oxygen Flow Rate (L/min) Weight Weight: 90.9 kg Body Mass Index (BMI) 33.3 Physical Exam Const alert, oriented x3 and well nourished; Negative for no apparent distress, average body habitus or healthy appearing Constitutional Narrative: Obese, elderly, white male, sitting up on the edge of the bed, patient with significant conversational dyspnea but no signs of respiratory extremis General Appearance: cooperative HEENT normocephalic, head/scalp atraumatic and moist oral mucous membranes; Negative for hearing grossly normal bilaterally HEENT Narrative: Edentulous, Mallampati is 2, no thrush, moderate hearing loss Eyes PERRL and EOMs intact bilaterally Eyes Narrative: Mild conjunctival pallor bilaterally, no scleral icterus Neck no lymphadenopathy, supple and No no JVD Neck Narrative: Neck is short and thick, trachea is midline, positive JVD, positive hepatojugular reflux Resp No normal respiratory effort, no retractions, no use of accessory muscles and Noclear to auscultation bilaterally Resp Narrative: Crackles at bases bilaterally with diminished breath sounds at the apex is bilaterally, patient is tachypneic and has significant conversational dyspnea Auscultation: crackles; Negative for rhonchi or wheezes Cardio regular rhythm, S1 normal heart sound, S2 normal heart sound, no murmurs, no rub, no gallops and no clicks Cardio Narrative: Mild tachycardia GI normal to inspection, nondistended, normoactive bowel sounds, soft to palpation and non-tender Extremity Extremity Narrative: Trace bilateral lower extremity pitting edema, no cyanosis or clubbing Skin no rashes or lesions noted, no wounds, skin turgor normal, no jaundice, no petechiae and no mottling Neuro oriented x3, CN's II-XII intact bilaterally, moves all extremities and no focal motor deficits Neuro Narrative: Mild to moderate generalized weakness noted proximally greater than distally Speech: speech normal Psych affect normal Psych Narrative: Very pleasant, eye contact is good, patient interacts normally Results Lab / Micro Data 04/24/23 15:55 04/24/23 15:55 Labs: Laboratory Results - last 24 hr 04/24/23 15:55: WBC 5.6, RBC 3.36 L, Hgb 9.3 L, Hct 30.1 L, MCV 89.6, MCH 27.7, MCHC 30.9 L, RDW Std Deviation 48.0 H, RDW Coeff of John 14.7 H, Plt Count 103 L,MPV 11.9, Immature Gran % (Auto) 0.200, Neut % (Auto) 76.7 H, Lymph % (Auto) 12.0 L, [place] % (Auto) 6.1, Eos % (Auto) 4.5, Baso % (Auto) 0.5, Absolute Neuts (auto) 4.3, Absolute Lymphs (auto) 0.67 L, Nucleated RBC % 0, Sodium 145, Potassium 4.1, Chloride 108 H, Carbon Dioxide 33.0 H, Anion Gap 4 L, BUN 43 H, Creatinine 2.00 H, Estim Creat Clear Calc 29.00, Est GFR (MDRD) Af Amer 41 L, Est GFR (MDRD) Non-Af 34 L, BUN/Creatinine Ratio 21.5 H, Glucose 200 H, Calcium 9.3, Troponin I High Sens 47, B-Natriuretic Peptide 143.1 H Micro: Microbiology 04/24/23 16:54 Mucosa - Nasopharyngeal SARS-CoV-2, Influenza & RSV (PCR) - Final Imaging Radiology Impression Chest X-Ray 04/24/23 17:08 IMPRESSION: Chronic prominence of the lung interstitium. Electronically Signed: John Martinez, at 17:33 EST , Assessment & Plan Assessment/Plan (1) Acute dyspnea: (2) Acute on chronic heart failure with preserved ejection fraction (HFpEF): (3) Elevated brain natriuretic peptide (BNP) level: (4) Anemia: QUALIFIERS: Anemia type: iron deficiency Iron deficiency anemia type: other iron deficiency Qualified Code(s): D50.8 - Other iron deficiency anemias (5) Hypoxia: PLAN: Plan Acute hypoxia secondary to acute on chronic heart failure with preserved ejection fraction -Patient desatted into the 80s on his baseline 2 L with exertion and has significant conversational dyspnea -Oxygen uptitrated to 4 L and patient stable -Wean oxygen as able with diuresis -Patient last echo done 2022 showed EF of 65%, mild concentric LVH, and mild to moderate aortic valve stenosis with mild aortic valve insufficiency -Patient states ever since they took him off his torsemide and placed him on furosemide he has had multiple admissions for heart failure -Patient indicates he watches his diet at home and takes an low-sodium -Bumex 2 mg IV push twice daily -Would maybe suggest transitioning him to Bumex at discharge rather than Lasix as this has not been beneficial for him -Will check albumin level as Lasix needs to find to albumin to work effectively and Bumex does not -Check lipids -Will hold on repeat echocardiogram since he just had one in February -Daily weights -Accurate I's and O's -Sodium and fluid restricted diet Chronic anemia -Hemoglobin is stable at 9.3 -Has had extensive workup and was 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 pylori negative -EGD and capsule endoscopy done in March 2023 that noted no esophageal abnormalities but dilation of the upper esophagus was performed due to strictureand capsule endoscopy placed with capsule endoscopy revealing no signs of bleeding -Continue home Protonix 40 mg p.o. twice daily -Continue home Carafate -Continue outpatient follow-up with Chronic thrombocytopenia -Etiology is unclear however I do suspect he may have some liver dysfunction related to MCBRIDE -Did have an abdominal ultrasound done 2021 that showed hepatomegaly and fatty infiltration -Recommend outpatient follow-up with GI Hypothyroidism -Continue home liothyronine -Check TSH Chronic hypoxic respiratory failure secondary to COPD -Is dependent on 2 L at baseline -Continue home inhalers and as needed nebulizers -Wean oxygen as able -Ongoing outpatient follow-up with pulmonary medicine as scheduled CAD/HTN/HPL -Patient has nonobstructive CAD and is not on any antiplatelet therapy -Recurrent bleeding has been an issue -Continue home atorvastatin -Check lipids Hold home Lasix -Continue home lisinopril DM-2 -Hold glimepiride -SSI -Cardiac/carb controlled diet -Accu-Cheks as ordered Obesity -BMI is 33.3 -Recommend weight loss -Complicates treatment, prognosis, outcomes DVT prophylaxis -Heparin 3 times daily CODE STATUS -DNR CCA with no intubation as discussed prior to admission with patient Charges/Coding Visit Charges Inpatient E&M: 38967 Init Hosp L2 04/24/232006 <Electronically signed by Michelle Washburn DO> Cosigner Signature (if applicable): CC: Dr. Michelle Washburn DO; Dr. Talya Nichols DO~ Signed [facility] Work Phone: [phone] Discharge summary Author Jr William [facility] [facility] April 24, 2023 8:00pm Note Date/Time April 24, 2023 4:47pm [facility] Medical Records Department [address] [place] [address] Emergency Department Summary 04/24/23 MR#: [id number] Acct: [id number] Name: BEULAH BRIGHT Rep #:[id number] : 1940 82 From: Jr Thomas DO PCP: Dr. Talya Nichols DO Status:ADM IN Location: [address] History of Present Illness Chief Complaint: Shortness of Breath Narrative Narrative: 82-year-old male with history of GI bleed, CHF, COPD, aortic stenosis, hyperlipidemia, CKD presenting with dyspnea. Patient states it started prior toarrival. 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 He states that somebody at [facility] who comes out to [place]. He states he want to have him do blood work in about 3 weeks and go to the [facility] to have something taken care of of at that time. The patient does not recall what is supposed to be done when he goes to the hospital. He states I can barely understand what he is saying. He states he started to feel short of breath when he was leaving the nephrologyoffice and when he arrived home he was even more short of breath and could not make it up the stairs to his house so he called his friends to be taken to the emergency room. They called EMS. Patient wears 2 L of oxygen at baseline and is currently on 2 L of oxygen during the interview but states he was turned up to 4 L of oxygen prior to arrival. He denies chest pain or palpitations. He denies fevers, chills, cough. He denies leg swelling. He states he has been ontorsemide in the past but was told this is because of some gout and he has been off of this for a long time. He states that he is on Lasix and has not missed any doses. Patient reports history of upper GI bleed recently in which he saw Dr. Joy. He states he just saw Dr. Joy yesterday in office to go over theimages from surgery. He states he has not had any black or bloody stools that he knows of. [facility] Medical History Acute and chronic respiratory failure with hypoxia Aortic valve stenosis, acquired Atherosclerotic heart disease of [place] coronary artery without angina pectoris CAD (coronary artery disease) Cardiology follow-up encounter Chronic respiratory failure with hypoxia COPD (chronic obstructive pulmonary disease) Diabetes Diabetes mellitus, type 2 Diastolic CHF Former smoker Former tobacco use High cholesterol History of CAD (coronary artery disease) History of echocardiogram History of GI bleed History of left heart catheterization (LHC) (~03/15/22) HLD (hyperlipidemia) HTN (hypertension) Hypertension Hypothyroidism Kidney disease Loss of hearing Low iron Mild left ventricular hypertrophy Myocardial infarct No natural teeth Nonrheumatic aortic (valve) stenosis Obesity On home oxygen therapy Polyarthralgia Poor historian Shortness of breath on exertion Symptomatic anemia Syncope Thyroid disease TIA (transient ischemic attack) Wears glasses Home Medications atorvastatin 80 mg tablet 80 mg PO DAILY CHOLESTEROL 05/02/21 [History Last Taken 02/14/23] cholecalciferol (vitamin D3) 25 mcg (1,000 unit) capsule 25 mcg PO DAILY [id number]/22 [History Last Taken 02/15/23] ipratropium 0.5 mg-albuterol 3 mg (2.5 mg base)/3 mL nebulization soln 3 ml inhalation 4X/DAY PRN sob 05/02/21 [History Last Taken 02/15/23] liothyronine 25 mcg tablet 25 mcg PO DAILY THYROID 05/02/21 [History Last Taken 02/15/23] omega-3 fatty acids-vitamin E 1,000 mg capsule 2 cap PO BID SUPPLEMENT 05/02/21 [History Last Taken 02/15/23] tiotropium bromide 18 mcg capsule with inhalation device (Spiriva with HandiHaler) 18 mcg inhalation DAILY SOB 05/02/21 [History Last Taken 02/15/23] vitamins A,C,V-efag-zpxzhb 4,296 mcg-226 mg-90 mg capsule (PreserVision AREDS) 1cap PO BID vitamin 12/13/21 [History Last Taken 02/15/23] lisinopril 20 mg tablet (Zestril) 10 mg PO DAILY blood pressure 03/12/22 [History Last Taken 02/15/23] furosemide 40 mg tablet (Lasix) 40 mg PO DAILY diuretic #90 tabs 07/06/22 [Rx Last Taken 02/15/23] glimepiride 2 mg tablet 2 mg PO DAILY DM #3 tabs 03/09/23 [Rx Last Taken 02/15/23] pantoprazole 40 mg tablet,delayed release (Protonix) 40 mg PO BID 90 days #180 tabs 03/09/23 [Rx Last Taken Unknown] sucralfate 1 gram tablet 1 g PO TID 30 days #90 tabs 03/23/23 [Rx Last Taken Unknown] sucralfate 1 gram tablet (Carafate) 1 g PO BID 30 days #60 tabs 03/23/23 [Rx Last Taken Unknown] Allergy/AdvReac Type Severity Reaction Status Date / Time codeine AdvReac Upset Verified 04/07/23 13:44 Stomach Family History Mother CVA (cerebral vascular accident) Heart disease Myocardial infarction Hx of CABG Hypertension Father CVA (cerebral vascular accident) Heart disease Surgical History S/P cataract extraction Social History household members: none housing: house Smoking Status: Former smoker how long ago did patient quit smoking: Quit 2011, prior 1 ppd since teen. alcohol intake: former year quit: 2010 substance use type: does not use ROS ROS ED Constitutional Constitutional ED: Denies chills, fever(s) or sweats Eyes Eyes: Denies blurry vision or change in vision ENT ENT ED: Denies ear pain or sore throat Cardiovascular Cardiovascular: Denies chest pain, palpitations or racing heartbeat Respiratory/Chest Respiratory/Chest: Reports dyspnea and dyspnea on exertion; Denies cough or sputum Gastrointestinal Gastrointestinal: Denies abdominal pain, constipation, diarrhea, nausea or vomiting Genitourinary Genitourinary ED: Denies dysuria, hematuria or urinary frequency Musculoskeletal Musculoskeletal: Denies arthralgias, myalgias or neck pain Integumentary Denies abscess, Abrasions or rash Neurologic Neurologic: Denies headache(s), paresthesias or weakness Psychiatric Psychiatric: Denies anxiety, depression, suicidal ideation or suicidal thoughts Endocrine Endocrinology: Denies polydipsia or polyuria EXAM Physical Exam Const Vital Signs: 04/24/23 15:35 04/24/23 15:39 04/24/23 15:39 Temperature 98.7 F 98.7 F Temperature Source Temporal Temporal Pulse Rate 113 H 113 H Respiratory Rate 22 H 24 H Respiratory Effort Short of Breath Respiratory Depth Shallow Respiratory Pattern Tachypnea Blood Pressure 175/65 H 175/65 H Blood Pressure Mean 101 101 Pulse Ox 95 97 Oxygen Delivery Method Nasal Cannula Nasal Cannula Nasal Cannula Oxygen Flow Rate (L/min) 4 4 4 04/24/23 18:29 04/24/23 19:03 04/24/23 16:27 Temperature 97.9 F Temperature Source Pulse Rate 92 103 H Respiratory Rate 20 H 22 H Respiratory Effort Respiratory Depth Respiratory Pattern Blood Pressure 168/67 H Blood Pressure Mean 100 Pulse Ox 97 96 Oxygen Delivery Method Nasal Cannula Oxygen Flow Rate (L/min) 4 04/24/23 16:30 04/24/23 16:40 04/24/23 16:45 Temperature Temperature Source Pulse Rate 103 H 109 H 105 H Respiratory Rate 24 H 25 H 29 H Respiratory Effort Respiratory Depth Respiratory Pattern Blood Pressure 152/59 H 165/63 H Blood Pressure Mean 87 93 Pulse Ox 93 94 Oxygen Delivery Method Oxygen Flow Rate (L/min) 04/24/23 16:50 04/24/23 17:00 04/24/23 17:10 Temperature Temperature Source Pulse Rate 102 H 102 H 99 Respiratory Rate 25 H 27 H 22 H Respiratory Effort Respiratory Depth Respiratory Pattern Blood Pressure 170/64 H Blood Pressure Mean 96 Pulse Ox 96 96 97 Oxygen Delivery Method Oxygen Flow Rate (L/min) 04/24/23 17:15 04/24/23 17:20 04/24/23 17:30 Temperature Temperature Source Pulse Rate 100 100 101 H Respiratory Rate 25 H 25 H 28 H Respiratory Effort Respiratory Depth Respiratory Pattern Blood Pressure 176/65 H Blood Pressure Mean 98 Pulse Ox 94 96 96 Oxygen Delivery Method Oxygen Flow Rate (L/min) 04/24/23 17:31 04/24/23 17:40 04/24/23 17:45 Temperature Temperature Source Pulse Rate 100 Respiratory Rate 15 Respiratory Effort Respiratory Depth Respiratory Pattern Blood Pressure 169/65 H 165/62 H Blood Pressure Mean 96 92 Pulse Ox 96 92 96 Oxygen Delivery Method Oxygen Flow Rate (L/min) 04/24/23 17:50 04/24/23 18:00 04/24/23 18:02 Temperature Temperature Source Pulse Rate Respiratory Rate Respiratory Effort Respiratory Depth Respiratory Pattern Blood Pressure 159/136 H Blood Pressure Mean 143 Pulse Ox 95 95 92 Oxygen Delivery Method Oxygen Flow Rate (L/min) 04/24/23 18:10 04/24/23 18:15 04/24/23 18:21 Temperature Temperature Source Pulse Rate Respiratory Rate Respiratory Effort Respiratory Depth Respiratory Pattern Blood Pressure 152/81 H Blood Pressure Mean 103 Pulse Ox 96 85 Oxygen Delivery Method Oxygen Flow Rate (L/min) 04/24/23 18:30 04/24/23 18:40 04/24/23 18:45 Temperature Temperature Source Pulse Rate 101 H 99 97 Respiratory Rate 26 H 25 H 25 H Respiratory Effort Respiratory Depth Respiratory Pattern Blood Pressure 175/70 H 168/64 H Blood Pressure Mean 100 95 Pulse Ox 96 97 97 Oxygen Delivery Method Oxygen Flow Rate (L/min) 04/24/23 18:50 04/24/23 19:00 04/24/23 19:10 Temperature Temperature Source Pulse Rate 97 97 105 H Respiratory Rate 22 H 23 H 19 H Respiratory Effort Respiratory Depth Respiratory Pattern Blood Pressure 168/67 H Blood Pressure Mean 96 Pulse Ox 97 97 95 Oxygen Delivery Method Oxygen Flow Rate (L/min) 04/24/23 19:15 04/24/23 19:20 04/24/23 19:30 Temperature Temperature Source Pulse Rate 102 H 109 H 96 Respiratory Rate 23 H 26 H 27 H Respiratory Effort Respiratory Depth Respiratory Pattern Blood Pressure 169/155 H 136/108 H Blood Pressure Mean 161 115 Pulse Ox 96 92 98 Oxygen Delivery Method Oxygen Flow Rate (L/min) 04/24/23 19:40 Temperature Temperature Source Pulse Rate 99 Respiratory Rate 27 H Respiratory Effort Respiratory Depth Respiratory Pattern Blood Pressure Blood Pressure Mean Pulse Ox 98 Oxygen Delivery Method Oxygen Flow Rate (L/min) MDM MDM MDM Narrative Medical decision making narrative: Patient presenting with shortness of breath. Differential includes but is not limited to ACS, aortic dissection, pneumonia, pneumothorax, muscle strain, costochondritis, dehydration, acute blood loss anemia, GI bleed, COVID, influenza, RSV. CBC will be obtained to assess white blood cell count, hemoglobin, platelets. BMP to assess renal function, electrolytes, glucose. High-sensitivity troponin and EKG to assess for ischemia. BNP to assess for CHF. Chest x-ray to rule out pNeumonia or CHF. Renal function and electrolytesnear baseline as well. Glucose 200 without anion gap. High-sensitivity troponin 47. BNP 143.1. EKG on my interpretation shows sinus rhythm at 100 bpmwithout sign of ischemic change. Chest x-ray on my interpretation shows interstitial prominence. Patient declines anything for pain or nausea. CBC shows normal white blood cell count of 5.6. Hemoglobin 9.3. BNP is elevated today at 143.1. Patient ambulated in hallway and pulse ox dropped to 87% he wasvery dyspneic and weak. Given this we will admit him for CHF exacerbation. He is given 40 mg of Lasix. Discussed with hospitalist for admission. Impression: 1 CHF exacerbation 2. Hypoxic respiratory failure 3. Debility Lab Data Attestation: I reviewed the patient's lab results. Labs: Laboratory Results - last 24 hr 04/24/23 15:55 WBC 5.6 RBC 3.36 L Hgb 9.3 L Hct 30.1 L MCV 89.6 MCH 27.7 MCHC 30.9 L RDW Std Deviation 48.0 H RDW Coeff of John 14.7 H Plt Count 103 L MPV 11.9 Immature Gran % (Auto) 0.200 Neut % (Auto) 76.7 H Lymph % (Auto) 12.0 L [place] % (Auto) 6.1 Eos % (Auto) 4.5 Baso % (Auto) 0.5 Absolute Neuts (auto) 4.3 Absolute Lymphs (auto) 0.67 L Nucleated RBC % 0 Sodium 145 Potassium 4.1 Chloride 108 H Carbon Dioxide 33.0 H Anion Gap 4 L BUN 43 H Creatinine 2.00 H Estim Creat Clear Calc 29.00 Est GFR (MDRD) Af Amer 41 L Est GFR (MDRD) Non-Af 34 L BUN/Creatinine Ratio 21.5 H Glucose 200 H Calcium 9.3 Troponin I High Sens 47 B-Natriuretic Peptide 143.1 H Radiography Diagnostic Testing: Clinical Impression(s) from Imaging Studies Chest X-Ray 04/24/23 17:08 IMPRESSION: Chronic prominence of the lung interstitium. Electronically Signed: John Martinez, at 17:33 EST Reading Location ID and State: [address] [place] [address] Tel , Service support , Discharge Plan Disposition Disposition: Acute Care Hospital [facility] Discharge Date/Time: 04/24/23 19:57 What to do if you have Problems For any increased pain, shortness of breath, bleeding, nausea or vomiting, chestpain, or any unexpected problems, contact your Primary Care Provider. Call [facility] ([phone]) or report to the closest Emergency Room. Call 911 if necessary. 04/24/231999 <Electronically signed by Jr Tohmas DO> Cosigner Signature (if applicable): CC: Dr. Talya Nichols DO ~ Signed [facility] Work Phone: [phone] Discharge summary Author Dimitry Lott [facility] April 07, 2023 3:47pm Note Date/Time April 07, 2023 1 :56pm [facility] Medical Records Department [address] [place] [address] Emergency Department Summary 04/07/23 MR#: [id number] Acct: [id number] Name: BEULAH BRIGHT Rep #:[id number] : 1940 82 From: Dimitry Lott MD PCP: Dr. Talya Nichols DO Status:REG ER Location: ED HPI History of Present Illness Chief Complaint: Shortness of Breath Informant: patient and family Onset/Context/Timing Onset: Today Context: gradual Timing: Continuous Current Severity: Mild Maximum Severity: Mild Worsened by: Nothing Relieved by: Oxygen Associated Symptoms Negative for cough Chest Pain: Positive for None Narrative Narrative: 82-year-old male history of chronic respiratory failure, CAD, COPD, diabetes, GIbleed with recent blood transfusion. States that he was admitted to the hospital last several weeks and needed to blood transfusions. States he is became short of breath less than an hour ago. He had some intermittent wheezinglast couple days but not today. No chest pain. No fever or chills. No nausea,vomiting or diarrhea. Denies any leg pain or swelling. No hemoptysis. No DVT or PE history. No recent new cough. Patient is chronically on O2. PE Risk Factors: Negative for Cancer, OCP + Smoking + > 35, Prior DVT or PE, Recent immobilization, Recent surgery or Recent travel Prior similar symptoms: Yes Recent Illness/Hospitalization: No PFSH PFSH Medical History Acute and chronic respiratory failure with hypoxia Aortic valve stenosis, acquired Atherosclerotic heart disease of [place] coronary artery without angina pectoris CAD (coronary artery disease) Cardiology follow-up encounter Chronic respiratory failure with hypoxia COPD (chronic obstructive pulmonary disease) Diabetes Diabetes mellitus, type 2 Diastolic CHF Former smoker Former tobacco use High cholesterol History of CAD (coronary artery disease) History of echocardiogram History of GI bleed History of left heart catheterization (LHC) (~03/15/22) HLD (hyperlipidemia) HTN (hypertension) Hypertension Hypothyroidism Kidney disease Loss of hearing Low iron Mild left ventricular hypertrophy Myocardial infarct No natural teeth Nonrheumatic aortic (valve) stenosis Obesity On home oxygen therapy Polyarthralgia Poor historian Shortness of breath on exertion Symptomatic anemia Syncope Thyroid disease TIA (transient ischemic attack) Wears glasses Home Medications atorvastatin 80 mg tablet 80 mg PO DAILY CHOLESTEROL 05/02/21 [History Last Taken 02/14/23] cholecalciferol (vitamin D3) 25 mcg (1,000 unit) capsule 25 mcg PO DAILY [id number]/21/22 [History Last Taken 02/15/23] ipratropium 0.5 mg-albuterol 3 mg (2.5 mg base)/3 mL nebulization soln 3 ml inhalation 4X/DAY PRN sob 05/02/21 [History Last Taken 02/15/23] liothyronine 25 mcg tablet 25 mcg PO DAILY THYROID 05/02/21 [History Last Taken 02/15/23] omega-3 fatty acids-vitamin E 1,000 mg capsule 2 cap PO BID SUPPLEMENT 05/02/21 [History Last Taken 02/15/23] tiotropium bromide 18 mcg capsule with inhalation device (Spiriva with HandiHaler) 18 mcg inhalation DAILY SOB 05/02/21 [History Last Taken 02/15/23] vitamins A,C,P-puov-byrrfm 4,296 mcg-226 mg-90 mg capsule (PreserVision AREDS) 1cap PO BID vitamin 12/13/21 [History Last Taken 02/15/23] lisinopril 20 mg tablet (Zestril) 10 mg PO DAILY blood pressure 03/12/22 [History Last Taken 02/15/23] furosemide 40 mg tablet (Lasix) 40 mg PO DAILY diuretic #90 tabs 07/06/22 [Rx Last Taken 02/15/23] glimepiride 2 mg tablet 2 mg PO DAILY DM #3 tabs 03/09/23 [Rx Last Taken 02/15/23] pantoprazole 40 mg tablet,delayed release (Protonix) 40 mg PO BID 90 days #180 tabs 03/09/23 [Rx Last Taken Unknown] sucralfate 1 gram tablet 1 g PO TID 30 days #90 tabs 03/23/23 [Rx Last Taken Unknown] sucralfate 1 gram tablet (Carafate) 1 g PO BID 30 days #60 tabs 03/23/23 [Rx Last Taken Unknown] Allergy/AdvReac Type Severity Reaction Status Date / Time codeine AdvReac Upset Verified 04/07/23 13:44 Stomach Family History Mother CVA (cerebral vascular accident) Heart disease Myocardial infarction Hx of CABG Hypertension Father CVA (cerebral vascular accident) Heart disease Surgical History S/P cataract extraction Social History household members: none housing: house Smoking Status: Former smoker how long ago did patient quit smoking: Quit 2011, prior 1 ppd since teen. alcohol intake: former year quit: 2010 substance use type: does not use ROS ROS ED ROS Narrative Shortness of breath today. Denies recent illness. Denies chest pain. Denies wheezing. Denies fever. Denies leg pain or swelling. Denies hemoptysis. Review of Systems ROS Unobtainable: Denies due to encephalopathy Constitutional Constitutional ED: Denies chills or fever(s) Eyes Eyes: Denies blurry vision ENT ENT ED: Denies ear pain, rhinorrhea or sore throat Cardiovascular Cardiovascular: Denies chest pain, orthopnea or paroxysmal nocturnal dyspnea Respiratory/Chest Respiratory/Chest: Reports dyspnea; Denies cough, dyspnea on exertion, orthopnea, paroxysmal nocturnal dyspnea or sputum Gastrointestinal Gastrointestinal: Denies abdominal pain, constipation, diarrhea, melena, nausea or vomiting Genitourinary Genitourinary ED: Denies dysuria or hematuria Musculoskeletal Musculoskeletal: Denies arthralgias Integumentary Denies abscess Neurologic Neurologic: Denies headache(s) Psychiatric Psychiatric: Denies anxiety Endocrine Endocrinology: Denies cold intolerance Hematologic/Lymphatic Hematologic/Lymphatic: Denies easy bleeding, easy bruising or lymphadenopathy Allergic/Immunologic Allergic/Immunologic ED: Denies mouth swelling, tongue swelling or urticaria EXAM Physical Exam Narrative Exam Narrative: Well-appearing 82-year-old male. Vital signs temperature 98.4. Pulse ox 91% on3 L which is his baseline oxygen. He is tachycardic 115. He does not look septic toxic. H EENT exam unremarkable. Neck nontender no JVD. Lungs clear toauscultation bilaterally. Currently no rales rhonchi or wheezing. Equal symmetrical. Heart tachycardic rate about 115 no murmur. Chest wall and ribs nontender. Abdomen soft nontender. Moving all 4 extremities. Calves are nontender without edema or cords. Back nontender. Neurologically is awake and alert. Answering questions following commands. No focal motor deficits. Const Vital Signs: 04/07/23 13:42 04/07/23 14:07 04/07/23 14:19 Temperature 98.4 F Temperature Source Oral Pulse Rate 115 H Respiratory Rate 36 H Respiratory Effort Short of Breath Respiratory Depth Shallow Respiratory Pattern Normal Pulse Ox 91 Oxygen Delivery Method Nasal Cannula Nasal Cannula Nasal Cannula Oxygen Flow Rate (L/min) 3 4 3 Fraction of Inspired Oxygen (FIO2) 97 Positive well nourished and well developed; Negative for cachectic, contracturesor unkempt General Appearance ED: well developed and NAD; Negative for unkempt, cachectic, contractures or pallor Nutritional Appearance: Negative for cachectic HEENT Reports moist mucous membranes; Denies dry mucous membranes atraumatic; Negative for trauma or tenderness Mouth ED: No dry mucous membranes Mouth: No dry mucous membranes Eyes PERRL and EOMs intact bilaterally General Eye ED: Negative for pale conjunctiva or scleral icterus Neck no lymphadenopathy, supple, no meningeal signs and no JVD General: Negative for tenderness Lymph Lymphatic: Negative for other Chest Wall Chest: Negative for other Resp normal respiratory effort and clear to auscultation bilaterally Effort and Inspection: Negative for pain with movement Auscultation: Negative for rales, rhonchi or wheezes Cardio regular rhythm, S1 normal heart sound, S2 normal heart sound and no murmurs; Negative for regular rate Rate: tachycardic Rhythm: Negative for abnormal rhythm GI non-tender, non-distended and no masses Inspection: Negative for other Auscultation: normoactive bowel sounds Palpation: soft; Negative for tender or guarding Back/Spine no CVA tenderness and normal to inspection General Back: Negative for CVA tenderness or tenderness Extremity normal to inspection General Extremety ED: Negative for edema, tenderness or other findings General Extremity: Negative for edema or other findings Neuro oriented x3 and CN's II-XII intact bilaterally Sensorium / Orientation: alert, oriented to person, oriented to place and oriented to time; Negative for orientation impaired, confused, lethargic or stuporous Speech: speech normal Motor Exam: strength 5/5 throughout Psych mental status grossly normal Appearance: Negative for unkempt Attitude: No agitated and No other Mood & Affect: Negative for depressed, anxious or tearful Thought Process: normal thought process Skin no wounds and skin turgor normal General Skin Exam: Negative for jaundice or pallor Lesions: no lesions Rashes: no rashes Trauma: Negative for abrasion or laceration MDM MDM MDM Narrative Medical decision making narrative: 82-year-old male with shortness of breath. He is concerned his he recently was anemic and required transfusion. He is at longstanding significant past medicalhistory. Currently he is not wheezing at all that he needs aerosols or steroidsright now. I do not think this is acutely cardiac. He has no complaints of recent respiratory infection. He has never had a DVT or PE. He denies any chest pain or hemoptysis. There is no leg pain or swelling. Undergo a cardiac workup. Repeat exam at 3:42 PM patient doing well. He is sitting upright on his bed. Said he feels much better. He is never had any chest pain the entire time. He is currently on his normal 2 to 3 L of oxygen and his sats are 97%. He and family are comfortable with him being discharged home. I went over all the testwith him his tests are at his baseline or better. History & Record Review Discussion w/independent historian: Patient Additional record(s) reviewed:: Prior inpatient record, Prior outpatient record,Prior ED visit and Prior labs Lab Data Attestation: I reviewed the patient's lab results. Lab results narrative: CBC shows a white count of 5.8. H&H of 10 and 32 which is his baseline chronic anemia. Platelets 110,000. Again chronic. Electrolytes show a gap of 5. BUN of 47 creatinine 2.17 acute on chronic renal insufficiency. Glucose 195. Troponin is normal at 36. Blood type is a negative. Labs: Laboratory Results - last 24 hr 04/07/23 13:50 WBC 5.8 RBC 3.63 L Hgb 10.0 L Hct 32.4 L MCV 89.3 MCH 27.5 MCHC 30.9 L RDW Std Deviation 50.7 H RDW Coeff of John 15.7 H Plt Count 110 L MPV 11.0 Immature Gran % (Auto) 0.300 Neut % (Auto) 63.9 Lymph % (Auto) 22.1 [place] % (Auto) 7.4 Eos % (Auto) 5.8 H Baso % (Auto) 0.5 Absolute Neuts (auto) 3.7 Absolute Lymphs (auto) 1.29 Nucleated RBC % 0 Sodium 140 Potassium 4.3 Chloride 103 Carbon Dioxide 32.0 Anion Gap 5 BUN 47 H Creatinine 2.17 H Estim Creat Clear Calc 26.68 Est GFR (MDRD) Af Amer 38 L Est GFR (MDRD) Non-Af 31 L BUN/Creatinine Ratio 21.7 H Glucose 195 H Calcium 9.2 Troponin I High Sens 36 Blood Type A NEGATIVE Antibody Screen NEGATIVE Radiography Chest X-Ray - ED: 1 View, Read by ED Physician, Heart, Lungs, Mediastinum, Bony Structures, No Acute Disease and Chronic Changes Diagnostic Testing: Clinical Impression(s) from Imaging Studies Chest X-Ray 04/07/23 13:48 IMPRESSION: No significant change. No new infiltrate is seen. Electronically Signed: Jay Dowd MD at 14:16 EST , Chest x-ray, portable, single view interpreted by myself and the radiologist shows no acute abnormality. No significant change. No infiltrate. No effusions. No pneumonia. Rhythm Strip Rhythm Strip: Tachycardia Rate: 106 Ectopy: None EKG Initial EKG: Attestation: I personally reviewed and interpreted this EKG as follows: Interpretation: Junctional Comments: Tachycardia rate of 106 no acute signs of TN or ischemia. This may be a junctional rhythm. No ST elevation or depression. Discharge Plan Triage Chief Complaint: Shortness of Breath ED Provider: Dimitry Lott Dx/Rx/DC Orders Clinical Impression: History of COPD, History of chronic kidney disease, Acute dyspnea, History of CAD (coronary artery disease), History of diabetes mellitus Instructions: ED Dyspnea Prescriptions: No Action furosemide [Lasix] 40 mg tablet 40 mg PO DAILY Qty: 90 3RF atorvastatin 80 mg tablet 80 mg PO DAILY Patient Comments: TAKE 1 TABLET BY MOUTH ONCE DAILY ipratropium-albuterol 0.5 mg-3 mg(2.5 mg base)/3 mL solution for nebulization 3 ml inhalation 4X/DAY PRN (Reason: sob) Patient Comments: inhale contents of 1 vial ( 3 milliliters ) in nebulizer by mouth... (REFER TO PRESCRIPTION NOTES). liothyronine 25 mcg tablet 25 mcg PO DAILY Patient Comments: TAKE 1 TABLET BY MOUTH ONCE DAILY FOR 90 DAYS tiotropium bromide [Spiriva with HandiHaler] 18 mcg capsule, w/inhalation device 18 mcg INHALATION DAILY Patient Comments: INHALE THE CONTENTS OF 1 CAPSULE TWICE EACH TIME VIA HANDIHALER ONCE DAILY cholecalciferol (vitamin D3) 25 mcg (1,000 unit) Capsule 25 mcg PO DAILY omega-3 fatty acids-vitamin E 1,000 mg Capsule 2 cap PO BID PreserVision AREDS 14,320-226-200 [id number] Capsule 1 cap PO BID lisinopril [Zestril] 20 mg tablet 10 mg PO DAILY Hold Instructions: Resume on 03/18/22. glimepiride 2 mg tablet 2 mg PO DAILY Qty: 3 0RF Patient Comments: take 1 tablet by mouth once daily WITH FIRST MEAL OF THE DAY Rx Instructions: Hold if glucose less than 130 mg/dl pantoprazole [Protonix] 40 mg tablet,delayed release (DR/EC) 40 mg PO BID 90 Days Qty: 180 0RF sucralfate [Carafate] 1 gram tablet 1 g PO BID 30 Days Qty: 60 2RF Rx Instructions: Start BID administration after TID administration for 30 days has been completed. sucralfate 1 gram tablet 1 g PO TID 30 Days Qty: 90 0RF Rx Instructions: Start BID administration after 30 days of TID administration Primary Care Provider: Talya Nichols Referrals: Talya Nichols, [Primary Care Provider] - 1-2 Days if not improving Activity Restrictions/Additional Instructions: Follow-up with your primary care physician. Your EKG and labs today were consistent with your normal baseline. No specific new or concerning changes. Return if you are feeling worse. Use your inhalers as needed. Disposition Disposition: Home, Self Care What to do if you have Problems For any increased pain, shortness of breath, bleeding, nausea or vomiting, chestpain, or any unexpected problems, contact your Primary Care Provider. Call [facility] ([phone]) or report to the closest Emergency Room. Call 911 if necessary. 04/07/23 7689 <Electronically signed by Dimitry Lott MD> Cosigner Signature (if applicable): CC: Dr. Talya Nichols DO ~ Signed [facility] Work Phone: 1(678) 737-232201-22-2024 Procedure [facility] 04-02-2023 Procedure [facility]12-29-2023 Consult note Author Radha Patricio [facility] March 09, 2023 2:22pm Note Date/Time March 09, 2023 2:22pm [facility] Medical Records Department [address] [place] [address] Counseling Note - Pharmacy 03/09/23 1422 MR#: [id number] Acct: [id number] Name: BEULAH BRIGHT Rep #:[id number] : 1940 82 From: Radha Patricio PCP: Dr. Talya Nichols DO Status:ADM IN Y Location: [place] [address] Pharmacy [place] Med Reconciliation Pharmacy Service has performed discharge medication reconciliation for this patient. No new medications at time of discharge reivew. The patient's discharge medication list was reviewed for discrepancies and discrepancies were resolved. Medications at Discharge Home Medications atorvastatin 80 mg tablet 80 mg PO DAILY CHOLESTEROL 05/02/21 cholecalciferol (vitamin D3) 25 mcg (1,000 unit) capsule 25 mcg PO DAILY /21/22 ipratropium 0.5 mg-albuterol 3 mg (2.5 mg base)/3 mL nebulization soln 3 ml inhalation 4X/DAY PRN sob 05/02/21 liothyronine 25 mcg tablet 25 mcg PO DAILY THYROID 05/02/21 omega-3 fatty acids-vitamin E 1,000 mg capsule 2 cap PO BID SUPPLEMENT 05/02/21 tiotropium bromide 18 mcg capsule with inhalation device (Spiriva with HandiHaler) 18 mcg inhalation DAILY SOB 05/02/21 vitamins A,C,I-kvjd-kozskw 4,296 mcg-226 mg-90 mg capsule (PreserVision AREDS) 1cap PO BID vitamin 12/13/21 lisinopril 20 mg tablet (Zestril) 10 mg PO DAILY blood pressure 03/12/22 furosemide 40 mg tablet (Lasix) 40 mg PO DAILY diuretic #90 tabs 07/06/22 empagliflozin 25 mg tablet (Jardiance) 10 mg PO DAILY dm 11/16/22 glimepiride 2 mg tablet 2 mg PO DAILY DM #3 tabs 03/09/23 pantoprazole 40 mg tablet,delayed release (Protonix) 40 mg PO BID 90 days #180 tabs 03/09/23 sucralfate 1 gram tablet 1 g PO Q6H 30 days #120 tabs 03/09/23 03/09/23 1422 <Electronically signed by Radha Patricio > Date _ Radha Patricio Cosigner Signature (if applicable): Date CC: ~ Signed [facility] Work Phone: 1(144) 493-635212-29-2023 Discharge summary Author Fred Ramos [facility] March 09, 2023 12:25pm Note Date/Time March 09, 2023 12:25pm [facility] Medical Records [place] [address] Discharge Summary 03/09/23 1221 MR#: [id number] Acct: [id number] Name: BEULAH BRIGHT Rep #:[id number] : 1940 82 From: Fred Galvan PCP: Dr. Talya Nichols, DO Status:ADM IN Location: [place] [address] Providers Date of Admission: 03/07/23 Date of Discharge: 03/09/23 Primary Care Physician: Dr. Talya Nichols, DO Consultations 03/07/23 22:12 Consult: Gastroenterology Routine Consulting Provider: [facility] Reason for Consult: Recurrent upper GI bleed EMERGENT Consult: No MD Notified: Yes Date Notified: 03/08/23 Time Notified: 05:52 Method of Notification: Text Reason For Visit: ACUTE ON CHRONIC ANEMIA, GI BLEED Diagnosis Discharge Diagnosis (1) Acute on chronic blood loss anemia: Status: Chronic Code(s): D62 - Acute posthemorrhagic anemia (2) Acute upper gastrointestinal bleeding: Status: Acute Code(s): K92.2 - Gastrointestinal hemorrhage, unspecified Plan Patient is an 82-year-old male who presented to [facility] ED on03/07/2023 with worsening shortness of breath on exertion and intermittent dark stools. 1. Acute on chronic anemia, suspected recurrent upper GI bleed Follows with Dr. Joy, last office visit on 02/21/23. Previous EGD on 11/17/2022 shows bleeding AVM of the stomach which was treated with heater probe, Many nonbleeding superficial gastric ulcers, many nonbleeding duodenal ulcers H.pylori negative. GI consulted. Hemoglobin slight drop from 7.9 on 02/15 to 7.5on 03/07. Stool occult blood positive in ED. most recently 8.2. Platelet count80,000. Mild leukopenia. Plan for EGD today. On IV PPI. 03/09: Patient had EGD yesterday as described below. Patient had loose bowel movement yesterday night. Although stool studies for enteric bacteriology panel, C. difficile and Giardia were ordered is not collected but patient did not have any loose bowel movement or diarrhea since yesterday night. No abdominal pain. He wants to go home. He feels back to baseline. Patient is discharged sucralfate for 1 more month and PPI 40 mg twice daily. Follow-up in GI clinic in 1 week. Impression: - Mena's esophagus. - Small hiatal hernia. - Oozing gastric ulcers with pigmented material. Injected. Treated with a heater probe. - Gastritis. Biopsied. - Duodenitis. Biopsied. Recommendation: - Use sucralfate tablets 1 gram PO QID. - Continue present medications. 2. Type 2 diabetes mellitus with hyperglycemia ? BG 223 on admit. Home regimen of glimepiride 2 mg daily, Jardiance 10 mg daily. Last A1c 7.6% in 2017, Accu-Chek ACHS cover with Humalog sliding scale. 03/09: Jardiance is contraindicated for creatinine clearance less than 30 mill per minute therefore hold it rest continued. 3. COPD with chronic respiratory failure on 2 L NC at home ? Satting in mid to high 90s on home 2 L nasal cannula at rest. Does not appearto be in acute exacerbation. Continue home Spiriva, DuoNebs as needed. Chronic medical conditions: ? CKD stage IV: Creatinine 2.6 on admit, baseline creatinine 2.5-3.0. Stable. Patient on lisinopril for CKD stage IV therefore continued. Patient creatinine is 1.91 better than his baseline. Resume Lasix and lisinopril. ? Chronic thrombocytopenia: Platelets 107 on admit, baseline platelets 100-130. Stable. ? HFpEF, hypertension, hyperlipidemia, CAD: Appears mildly dry to euvolemic on exam on admit. BP with fairly wide pulse pressure, systolic values in 130s to 140s. Continue home statin. DVT prophylaxis: SCDs CODE STATUS: DNR CCA, DO NOT INTUBATE Medications at Discharge Home Medications atorvastatin 80 mg tablet 80 mg PO DAILY CHOLESTEROL 05/02/21 cholecalciferol (vitamin D3) 25 mcg (1,000 unit) capsule 25 mcg PO DAILY [id number]/21/22 ipratropium 0.5 mg-albuterol 3 mg (2.5 mg base)/3 mL nebulization soln 3 ml inhalation 4X/DAY PRN sob 05/02/21 liothyronine 25 mcg tablet 25 mcg PO DAILY THYROID 05/02/21 omega-3 fatty acids-vitamin E 1,000 mg capsule 2 cap PO BID SUPPLEMENT 05/02/21 tiotropium bromide 18 mcg capsule with inhalation device (Spiriva with HandiHaler) 18 mcg inhalation DAILY SOB 05/02/21 vitamins A,C,J-ykfs-aikfhc 4,296 mcg-226 mg-90 mg capsule (PreserVision AREDS) 1cap PO BID vitamin 12/13/21 lisinopril 20 mg tablet (Zestril) 10 mg PO DAILY blood pressure 03/12/22 furosemide 40 mg tablet (Lasix) 40 mg PO DAILY diuretic #90 tabs 07/06/22 empagliflozin 25 mg tablet (Jardiance) 10 mg PO DAILY dm 11/16/22 glimepiride 2 mg tablet 2 mg PO DAILY DM #3 tabs 03/09/23 pantoprazole 40 mg tablet,delayed release (Protonix) 40 mg PO BID 90 days #180 tabs 03/09/23 sucralfate 1 gram tablet 1 g PO Q6H 30 days #120 tabs 03/09/23 Physical Exam Narrative Seen and examined. History of COPD and heart failure and CKD stage IV. Chronic dyspnea on exertion. Diarrhea has resolved denies abdominal pain Physical exam General: Alert, Oriented x3, Cooperative HEENT: Atraumatic, PERRLA, EOMI, Normocephalic Oral: No Gingival or Mucosal Lesions/ Ulcerations Neck: Supple, No JVD, Negative Carotid Bruits Lungs: Air entry diminished in bilateral lung bases. No crepitation/rhonchi. Mild dyspnea on exertion Cardiovascular: Regular rate, Regular Rhythm, Normal S1, Normal S2, systolic murmur right second ICS and cardiac apex Abdomen: Bowel Sounds Present, Soft, Non Tender, Non-Distended : No renal angle tenderness. No suprapubic tenderness. Extremities: No edema, Capillary Refill Less than 3 Seconds Skin: No rashes, No breakdown Musculoskeletal: No Tenderness to Palpation of Joints or Extremities Neurological: Cranial nerves II-XII grossly intact, DTR 2+/4. No acute focal neurological deficit. Psych/Mental Status: Flat affect. Weight / BMI Weight Weight: 186 lb 15.232 oz Body Mass Index (BMI) 31.1 ABG / Lab / Microbiology Data 03/09/23 06:33 03/09/23 06:33 Laboratory: Laboratory Results - last 24 hr 03/08/23 17:18: POC Glucose 128 H 03/08/23 21:35: POC Glucose 194 H 03/09/23 06:09: POC Glucose 116 H 03/09/23 06:33: WBC 4.2 L, RBC 3.44 L, Hgb 9.3 L, Hct 30.2 L, MCV 87.8, MCH 27.0, MCHC 30.8 L, RDW Std Deviation 55.2 H, RDW Coeff of John 17.4 H, Plt Count 108 L, MPV 11.1, Immature Gran % (Auto) 0.500, Neut % (Auto) 57.7, Lymph % (Auto) 25.7, [place] % (Auto) 9.8, Eos % (Auto) 5.8 H, Baso % (Auto) 0.5, Absolute Neuts (auto) 2.4, Absolute Lymphs (auto) 1.07, Nucleated RBC % 0, Sodium 143, Potassium 4.3, Chloride 110 H, Carbon Dioxide 28.0, Anion Gap 5, BUN 50 H, Creatinine 1.91 H, Estim Creat Clear Calc 25.49, Est GFR (MDRD) Af Amer 43 L, Est GFR (MDRD) Non-Af 36 L, BUN/Creatinine Ratio 26.2 H, Glucose 123 H, Calcium 9.5 Microbiology: Microbiology 03/07/23 19:50 Stool Stool Occult Blood (CLARY) - Final Occult Blood Positive 03/07/23 18:51 Nasal Secretion SARS-CoV-2 & FLU Antigen (Rapid) - Final D/C Instructions Discharge Diet: No restrictions Weight Bearing Status: Weight bearing as tolerated Call your doctor if you observe: Fever of 101 or Higher, Coldness, Increased Pain, Numbness or Tingling, Change in Color, Inability to urinate, Inability to have a bowel movement, Shortness of breath, Dizziness, Fainting spells, Swellingin the ankles, Chest pain, Prolonged hiccupping, Increased palpitations (irregular heartbeat) and Calf discomfort When: IN 2 WEEKS Meaningful Use Info Meaningful Use Diagnoses (Choose all that apply): None applicable Discharge Plan Admission Admit Date/Time: 03/07/23 21:18 Primary Reason for Your Visit: Acute GI bleed. Attending Provider: Fred Ramos Primary Care Provider: Talya Nichols Consulting Providers: Romario Blancas Discharge Orders/Prescriptions Prescriptions: Continued furosemide [Lasix] 40 mg tablet 40 mg PO DAILY Qty: 90 3RF atorvastatin 80 mg tablet 80 mg PO DAILY Patient Comments: TAKE 1 TABLET BY MOUTH ONCE DAILY ipratropium-albuterol 0.5 mg-3 mg(2.5 mg base)/3 mL solution for nebulization 3 ml inhalation 4X/DAY PRN (Reason: sob) Patient Comments: inhale contents of 1 vial ( 3 milliliters ) in nebulizer by mouth... (REFER TO PRESCRIPTION NOTES). liothyronine 25 mcg tablet 25 mcg PO DAILY Patient Comments: TAKE 1 TABLET BY MOUTH ONCE DAILY FOR 90 DAYS tiotropium bromide [Spiriva with HandiHaler] 18 mcg capsule, w/inhalation device 18 mcg INHALATION DAILY Patient Comments: INHALE THE CONTENTS OF 1 CAPSULE TWICE EACH TIME VIA HANDIHALER ONCE DAILY cholecalciferol (vitamin D3) 25 mcg (1,000 unit) Capsule 25 mcg PO DAILY omega-3 fatty acids-vitamin E 1,000 mg Capsule 2 cap PO BID PreserVision AREDS 14,320-226-200 [id number] Capsule 1 cap PO BID lisinopril [Zestril] 20 mg tablet 10 mg PO DAILY Hold Instructions: Resume on 03/18/22. sucralfate 1 gram tablet 1 g PO Q6H 30 Days Qty: 120 0RF glimepiride 2 mg tablet 2 mg PO DAILY Qty: 3 0RF Patient Comments: take 1 tablet by mouth once daily WITH FIRST MEAL OF THE DAY Rx Instructions: Hold if glucose less than 130 mg/dl pantoprazole [Protonix] 40 mg tablet,delayed release (DR/EC) 40 mg PO BID 90 Days Qty: 180 0RF Held Jardiance 25 mg tablet 10 mg PO DAILY Hold Instructions: Hold for creatinine clearance less than 30 mill per minute. Referrals / Follow Up: Talya Nichols DO [Primary Care Provider] - Within 2 Weeks Fredy Joy DO [Med Staff - Active Staff] - Within 1 Month Disposition Disposition (needs filled in before D/C Order can be placed): Home, Self Care Charges/Coding Visit Charges Inpatient E&M: 51333 Disch Hosp >30min 03/09/23 1225 <Electronically signed by Fred Ramos MD> Cosigner Signature (if applicable): CC: Dr. Talya Nichols DO; Dr. Fred Ramos MD~ Signed [facility] Work Phone: 1(558) 816-242512-29-2023 Discharge summary Author Fred Ramos [facility] March 09, 2023 12:21pm Note Date/Time March 09, 2023 12:16pm [facility] Medical Records Department [address] [place] [address] Instructions for Home/Discharge Instructions 03/09/23 0915 MR#: [id number] Acct: [id number] Name: BEULAH BRIGHT Rep #:[id number] : 1940 82 From: Fred Galvan PCP: Dr. Talya Nichols DO Status:ADM IN Discharge Instructions Diet Discharge Diet: No restrictions Activity Discharge Activity: Return to Normal Activity Weight Bearing Status: Weight bearing as tolerated Dressing / Incision Call your doctor if you observe: Fever of 101 or Higher, Coldness, Increased Pain, Numbness or Tingling, Change in Color, Inability to urinate, Inability to have a bowel movement, Shortness of breath, Dizziness, Fainting spells, Swellingin the ankles, Chest pain, Prolonged hiccupping, Increased palpitations (irregular heartbeat) and Calf discomfort Follow Up Care When: IN 2 WEEKS Test Results: Test results from this visit will be discussed in further detail at your follow- up appointment, if applicable. Discharge Plan Admission Admit Date/Time: 03/07/23 21:18 Primary Reason for Your Visit: Acute GI bleed. Attending Provider: Fred Ramos Primary Care Provider: Talya Nichols Consulting Providers: Romario Blancas Discharge Orders/Prescriptions Prescriptions: Continued furosemide [Lasix] 40 mg tablet 40 mg PO DAILY Qty: 90 3RF atorvastatin 80 mg tablet 80 mg PO DAILY Patient Comments: TAKE 1 TABLET BY MOUTH ONCE DAILY ipratropium-albuterol 0.5 mg-3 mg(2.5 mg base)/3 mL solution for nebulization 3 ml inhalation 4X/DAY PRN (Reason: sob) Patient Comments: inhale contents of 1 vial ( 3 milliliters ) in nebulizer by mouth... (REFER TO PRESCRIPTION NOTES). liothyronine 25 mcg tablet 25 mcg PO DAILY Patient Comments: TAKE 1 TABLET BY MOUTH ONCE DAILY FOR 90 DAYS tiotropium bromide [Spiriva with HandiHaler] 18 mcg capsule, w/inhalation device 18 mcg INHALATION DAILY Patient Comments: INHALE THE CONTENTS OF 1 CAPSULE TWICE EACH TIME VIA HANDIHALER ONCE DAILY cholecalciferol (vitamin D3) 25 mcg (1,000 unit) Capsule 25 mcg PO DAILY omega-3 fatty acids-vitamin E 1,000 mg Capsule 2 cap PO BID PreserVision AREDS 14,320-226-200 [id number] Capsule 1 cap PO BID lisinopril [Zestril] 20 mg tablet 10 mg PO DAILY Hold Instructions: Resume on 03/18/22. sucralfate 1 gram tablet 1 g PO Q6H 30 Days Qty: 120 0RF glimepiride 2 mg tablet 2 mg PO DAILY Qty: 3 0RF Patient Comments: take 1 tablet by mouth once daily WITH FIRST MEAL OF THE DAY Rx Instructions: Hold if glucose less than 130 mg/dl pantoprazole [Protonix] 40 mg tablet,delayed release (DR/EC) 40 mg PO BID 90 Days Qty: 180 0RF Held Jardiance 25 mg tablet 10 mg PO DAILY Hold Instructions: Hold for creatinine clearance less than 30 mill per minute. Referrals / Follow Up: Talya Nichols DO [Primary Care Provider] - Within 2 Weeks FriendFredy DO [Med Staff - Active Staff] - Within 1 Month Disposition Disposition (needs filled in before D/C Order can be placed): Home, Self Care 03/09/23 1221<Electronically signed by Fred Ramos MD>Fred Ramos MD CC: Dr. Romario Blancas DO; Dr. Talya Nichols DO ~ Signed [facility] Work Phone: [phone]) 887-564012-28-2023 Consult note Author Fredy Friend [facility] March 08, 2023 4:49pm Note Date/Time March 08, 2023 4:46pm [facility] Medical Records Department [facility] [place] [address] Consultation - GI 03/07/23 2350 MR#: [id number] Acct: [id number] Name: BEULAH BRIGHT Rep #:[id number] : 1940 82 From: Fredy Friend DO PCP: Dr. Talya Nichols, DO Status:ADM IN Location: [place] [id number]- 1 HPI Consult Data Date of Consult: 03/07/23 HPI Narrative Reason for Consultation: GI bleed/anemia HPI Narrative: BEULAH BRIGHT, is a 82-year-old patient with COPD presents by EMS for shortness of breath got worse today. He states he has been resting today and not doing anything in particular other than walking around the house, he thinks the context of this worsening see may be to be conversation. There was no other obvious trigger for this getting worse but it was not sudden. Denies any chest discomfort. Denies any worsening edema in his legs. He has been on Lasix and compliant with that but he is on another diuretic because he states he has issues with his kidneys. He started having a cough andrunny diarrhea today. In March 2022 for non-ST elevated myocardial infarction, acute congestive heart failure, hypertension, and hyperlipidemia. He had an echocardiogram that showed ejection fraction of 65%, mild concentric LVH, and mild aortic valve stenosis. He underwent a heart catheterization on 03/15/2022 that showed left main with 25% stenosis, LAD with mild luminal irregularities, diagonal 1 with 50% stenosis, LCx with mild luminal irregularities, and RCA with mild luminal irregularities. Medical therapy was recommended. He was diuresed and discharged home. He returned to the Emergency Department with ongoing shortness of breath. He was admitted and diuresed. He also has a past medical history of COPD, diabetes mellitus type 2, and hypothyroidism. Vitals in the ED were temp of 98.1F, WA of 99, BP of 132/64, RR of 22 and he wassaturating at 97% on 2L of oxygen. CBC shwoed hb of 6.4, wbc of 5.7, platelets of 124; chemistry showed sodium of 139, potassium of 5.1, Cr of 2.91 and BNP wasonly 50.7. COVID test was negative and CXR showed no acute cardiopulmonary process. He denied any recent history of dark stools, and is on aspirin. He has no history of over the counter pain meds. I saw him previously couple months ago for acute blood loss anemia. 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 [facility] Medical History Acute and chronic respiratory failure with hypoxia Aortic valve stenosis, acquired Atherosclerotic heart disease of [place] coronary artery without angina pectoris CAD (coronary artery disease) Chronic respiratory failure with hypoxia COPD (chronic obstructive pulmonary disease) Diabetes Diabetes mellitus, type 2 Diastolic CHF Former smoker Former tobacco use History of CAD (coronary artery disease) History of left heart catheterization (LHC) (~03/15/22) HLD (hyperlipidemia) HTN (hypertension) Hypertension Hypothyroidism Kidney disease Mild left ventricular hypertrophy Myocardial infarct Nonrheumatic aortic (valve) stenosis Obesity On home oxygen therapy Polyarthralgia TIA (transient ischemic attack) Home Medications atorvastatin 80 mg tablet 80 mg PO DAILY CHOLESTEROL 05/02/21 [History Last Taken 02/14/23] cholecalciferol (vitamin D3) 25 mcg (1,000 unit) capsule 25 mcg PO DAILY ajyfxeu86/21/22 [History Last Taken 02/15/23] ipratropium 0.5 mg-albuterol 3 mg (2.5 mg base)/3 mL nebulization soln 3 ml inhalation 4X/DAY PRN sob 05/02/21 [History Last Taken 02/15/23] liothyronine 25 mcg tablet 25 mcg PO DAILY THYROID 05/02/21 [History Last Taken 02/15/23] omega-3 fatty acids-vitamin E 1,000 mg capsule 2 cap PO BID SUPPLEMENT 05/02/21 [History Last Taken 02/15/23] tiotropium bromide 18 mcg capsule with inhalation device (Spiriva with HandiHaler) 18 mcg inhalation DAILY SOB 05/02/21 [History Last Taken 02/15/23] vitamins A,C,V-ypet-swdkue 4,296 mcg-226 mg-90 mg capsule (PreserVision AREDS) 1cap PO BID vitamin 12/13/21 [History Last Taken 02/15/23] lisinopril 20 mg tablet (Zestril) 10 mg PO DAILY blood pressure 03/12/22 [History Last Taken 02/15/23] glimepiride 2 mg tablet 2 mg PO DAILY DM 05/24/22 [History Last Taken 02/15/23] furosemide 40 mg tablet (Lasix) 40 mg PO DAILY diuretic #90 tabs 07/06/22 [Rx Last Taken 02/15/23] empagliflozin 25 mg tablet (Jardiance) 10 mg PO DAILY dm 11/16/22 [History Last Taken 02/15/23] pantoprazole 40 mg tablet,delayed release (Protonix) 40 mg PO BID 12 weeks #168 tabs 11/18/22 [Rx Last Taken 02/15/23] sucralfate 1 gram tablet 1 g PO Q6H 8 weeks #224 tabs 11/18/22 [Rx Last Taken 02/15/23] Allergy/AdvReac Type Severity Reaction Status Date / Time codeine AdvReac Upset Verified 03/07/23 18:27 Stomach Family History Mother CVA (cerebral vascular accident) Heart disease Myocardial infarction Hx of CABG Hypertension Father CVA (cerebral vascular accident) Heart disease Surgical History S/P cataract extraction Social History household members: none housing: house Smoking Status: Former smoker how long ago did patient quit smoking: Quit 2010, prior 1 ppd since teen. alcohol intake: former year quit: 2010 substance use type: does not use ROS Constitutional Constitutional: Denies chills, fatigue, fever(s) or weakness Eyes Eyes: Denies change in vision Cardiovascular Cardiovascular: Reports dyspnea on exertion; Denies chest pain, edema, lightheadedness, palpitations or rapid heart rate Respiratory/Chest Respiratory/Chest: Denies cough, shortness of breath at rest or wheezing Gastrointestinal Gastrointestinal: Reports melena; Denies abdominal pain, constipation, diarrhea,nausea or vomiting Genitourinary Genitourinary: Denies dysuria Musculoskeletal Musculoskeletal: Denies arthralgias or back pain Neurologic Neurologic: Denies dizziness, focal weakness or headache(s) Physical Exam Narrative Seen and examined. Patient admitted with loose watery stool with dark color for 2 to 3 days. Denies nausea or vomiting. Dyspnea on exertion. Patient had endoscopy/EGD recently. Denies abdominal pain Physical exam General: Alert, Oriented x3, Cooperative HEENT: Atraumatic, PERRLA, EOMI, Normocephalic Oral: No Gingival or Mucosal Lesions/ Ulcerations Neck: Supple, No JVD, Negative Carotid Bruits Lungs: Air entry diminished in bilateral lung bases. No crepitation/rhonchi. Mild dyspnea on exertion Cardiovascular: Regular rate, Regular Rhythm, Normal S1, Normal S2, No murmurs Abdomen: Bowel Sounds Present, Soft, Non Tender, Non-Distended : No renal angle tenderness. No suprapubic tenderness. Extremities: No edema, Capillary Refill Less than 3 Seconds Skin: No rashes, No breakdown Musculoskeletal: No Tenderness to Palpation of Joints or Extremities Neurological: Cranial nerves II-XII grossly intact, DTR 2+/4. No acute focal neurological deficit. Psych/Mental Status: Flat affect. Lab / Micro Data 03/08/23 05:30 03/07/23 18:23 Labs: Laboratory Results - last 24 hr 03/07/23 18:23: WBC 4.0 L, RBC 2.70 L, Hgb 7.5 L, Hct 24.5 L, MCV 90.7, MCH 27.8, MCHC 30.6 L, RDW Std Deviation 55.5 H, RDW Coeff of John 17.1 H, Plt Count 107 L, MPV 11.9, Immature Gran % (Auto) 0.200, Neut % (Auto) 63.7, Lymph % (Auto) 25.2, [place] % (Auto) 8.2, Eos % (Auto) 2.5, Baso % (Auto) 0.2, Absolute Neuts (auto) 2.6, Absolute Lymphs (auto) 1.02, Nucleated RBC % 0, Sodium 143, Potassium 4.2, Chloride 107, Carbon Dioxide 29.0, Anion Gap 7, BUN 77 H, Creatinine 2.67 H, Estim Creat Clear Calc 18.24, Est GFR (MDRD) Af Amer 30 L, Est GFR (MDRD) Non-Af 24 L, BUN/Creatinine Ratio 28.8 H, Glucose 223 H, Calcium 9.1, Troponin I High Sens 34, B-Natriuretic Peptide 78.3 03/07/23 21:08: Blood Type A NEGATIVE, Antibody Screen NEGATIVE, Crossmatch See Detail 03/08/23 05:30: WBC 3.9 L, RBC 3.02 L, Hgb 8.2 L, Hct 26.5 L, MCV 87.7, MCH 27.2, MCHC 30.9 L, RDW Std Deviation 54.2 H, RDW Coeff of John 17.2 H, Plt Count 80 L, MPV 10.9, Differential Comment SCANNED Micro: Microbiology 03/07/23 19:50 Stool Stool Occult Blood (CLARY) - Final Occult Blood Positive 03/07/23 18:51 Nasal Secretion SARS-CoV-2 & FLU Antigen (Rapid) - Final Rhythm Strip Rhythm Strip: Sinus Tach Rate: 104 Ectopy: None Imagaing Radiology Impression Chest X-Ray 03/07/23 19:26 IMPRESSION: Poor inspiration with some bibasilar atelectasis. Electronically Signed: Melonie Garcia MD at 19:54 EST Reading Location ID and State: [address] [place] [address] Tel , Service support , Assessment & Plan Assessment/Plan (1) Anemia: QUALIFIERS: Anemia type: iron deficiency Iron deficiency anemia type: other iron deficiency Qualified Code(s): D50.8 - Other iron deficiency anemias (2) GI bleed: QUALIFIERS: GI bleed type/associated pathology: unspecified gastrointestinal hemorrhage type Qualified Code(s): K92.2 - Gastrointestinal hemorrhage, unspecified PLAN: Plan 82-year-old with past medical history of CHF, CAD status post non-ST segment elevation [place] on medical therapy, COPD on oxygen who arrives here today with worsening shortness of breath and discomfort in the anemic to hemoglobin of 7.2. He was transfused 2 units of packed red blood cell in the past. Likely upper GI bleed greater than lower GI bleed. He will need to undergo an upper endoscopy and if negative he will need a colonoscopy. He was explained alternatives, risk, benefits including outstanding bleeding, infection, sepsis, perforation, need for emergent surgery . He will have an ASA of 3. Charges/Coding Visit Charges Inpatient E&M: 83310 Init Hosp L3 03/08/23 0730 <Electronically signed by Fredy Joy DO> Cosigner Signature (if applicable): CC: Dr. Romario Blancas DO; Dr. Talya Nichols, DO~ Signed [facility] Work Phone: 1(393) 818-262712-28-2023 Progress note Author Fred Ramos [facility] March 08, 2023 4:12pm Note Date/Time March 08, 2023 8:25am [facility] Medical Records Department [address] [place] [address] Progress Note - Hospitalist 03/08/23 0824 MR#: [id number] Acct: [id number] Name: BEULAH BRIGHT Rep #:[id number] : 1940 82 From: Fred Galvan PCP: Dr. Talya Nichols DO Status:ADM IN Location: [place] [address] Reason for Visit Reason for Visit: Diagnoses Acute posthemorrhagic anemia (03/07/23) Gastrointestinal hemorrhage, unspecified (03/07/23) Objective Data Objective Data Vital Signs: Vital Signs Temp Pulse Resp BP Pulse Ox O2 Del Method O2 Flow Rate 98.1 F 91 18 153/57 H 98 Nasal Cannula 2 03/08/23 02:25 03/08/23 07:01 03/08/23 07:01 03/08/23 02:25 03/08/23 07:01 03/08/23 07:01 03/08/23 07:01 Oxygen Flow Rate (L/min) 2 Oxygen Delivery Method Nasal Cannula Weight: 186 lb 15.232 oz Body Mass Index (BMI) 31.1 Intake & Output: Intake and Output for Last 24 Hours 03/06/23 03/07/23 03/08/23 23:59 23:59 23:59 Intake Total 110 / 110 2 / 2 Output Total 750 / 750 Balance 110 / -340 -748 / -748 Lab / Micro Data 03/08/23 05:30 03/07/23 18:23 Labs: Laboratory Results - last 24 hr 03/07/23 18:23: WBC 4.0 L, RBC 2.70 L, Hgb 7.5 L, Hct 24.5 L, MCV 90.7, MCH 27.8, MCHC 30.6 L, RDW Std Deviation 55.5 H, RDW Coeff of John 17.1 H, Plt Count 107 L, MPV 11.9, Immature Gran % (Auto) 0.200, Neut % (Auto) 63.7, Lymph % (Auto) 25.2, [place] % (Auto) 8.2, Eos % (Auto) 2.5, Baso % (Auto) 0.2, Absolute Neuts (auto) 2.6, Absolute Lymphs (auto) 1.02, Nucleated RBC % 0, Sodium 143, Potassium 4.2, Chloride 107, Carbon Dioxide 29.0, Anion Gap 7, BUN 77 H, Creatinine 2.67 H, Estim Creat Clear Calc 18.24, Est GFR (MDRD) Af Amer 30 L, Est GFR (MDRD) Non-Af 24 L, BUN/Creatinine Ratio 28.8 H, Glucose 223 H, Calcium 9.1, Troponin I High Sens 34, B-Natriuretic Peptide 78.3 03/07/23 21:08: Blood Type A NEGATIVE, Antibody Screen NEGATIVE, Crossmatch See Detail 03/08/23 05:30: WBC 3.9 L, RBC 3.02 L, Hgb 8.2 L, Hct 26.5 L, MCV 87.7, MCH 27.2, MCHC 30.9 L, RDW Std Deviation 54.2 H, RDW Coeff of John 17.2 H, Plt Count 80 L, MPV 10.9 Micro: Microbiology 03/07/23 19:50 Stool Stool Occult Blood (CLARY) - Final Occult Blood Positive 03/07/23 18:51 Nasal Secretion SARS-CoV-2 & FLU Antigen (Rapid) - Final Radiography Diagnostic Testing: Radiology Impression Chest X-Ray 03/07/23 19:26 IMPRESSION: Poor inspiration with some bibasilar atelectasis. Electronically Signed: Melonie Garcia MD at 19:54 EST , Rhythm Strip Rhythm Strip: Sinus Tach Rate: 104 Ectopy: None Physical Exam Narrative Seen and examined. Patient admitted with loose watery stool with dark color for 2 to 3 days. Denies nausea or vomiting. Dyspnea on exertion. Patient had endoscopy/EGD recently. Denies abdominal pain Physical exam General: Alert, Oriented x3, Cooperative HEENT: Atraumatic, PERRLA, EOMI, Normocephalic Oral: No Gingival or Mucosal Lesions/ Ulcerations Neck: Supple, No JVD, Negative Carotid Bruits Lungs: Air entry diminished in bilateral lung bases. No crepitation/rhonchi. Mild dyspnea on exertion Cardiovascular: Regular rate, Regular Rhythm, Normal S1, Normal S2, No murmurs Abdomen: Bowel Sounds Present, Soft, Non Tender, Non-Distended : No renal angle tenderness. No suprapubic tenderness. Extremities: No edema, Capillary Refill Less than 3 Seconds Skin: No rashes, No breakdown Musculoskeletal: No Tenderness to Palpation of Joints or Extremities Neurological: Cranial nerves II-XII grossly intact, DTR 2+/4. No acute focal neurological deficit. Psych/Mental Status: Flat affect. Assessment & Plan Assessment/Plan (1) Acute on chronic blood loss anemia: (2) Acute upper gastrointestinal bleeding: PLAN: Plan Patient is an 82-year-old male who presented to [facility] ED on03/07/2023 with worsening shortness of breath on exertion and intermittent dark stools. 1. Acute on chronic anemia, suspected recurrent upper GI bleed Follows with Dr. Joy, last office visit on 02/21/23. Previous EGD on 11/17/2022 shows bleeding AVM of the stomach which was treated with heater probe, Many nonbleeding superficial gastric ulcers, many nonbleeding duodenal ulcers H.pylori negative. GI consulted. Hemoglobin slight drop from 7.9 on 02/15 to 7.5on 03/07. Stool occult blood positive in ED. most recently 8.2. Platelet count80,000. Mild leukopenia. Plan for EGD today. On IV PPI. Stool studies for enteric bacteriology panel, C. difficile and Giardia ordered. 2. Type 2 diabetes mellitus with hyperglycemia ? BG 223 on admit. Home regimen of glimepiride 2 mg daily, Jardiance 10 mg daily. Last A1c 7.6% in 2017, Accu-Chek ACHS cover with Humalog sliding scale. 3. COPD with chronic respiratory failure on 2 L NC at home ? Satting in mid to high 90s on home 2 L nasal cannula at rest. Does not appearto be in acute exacerbation. Continue home Spiriva, DuoNebs as needed. Chronic medical conditions: ? CKD stage IV: Creatinine 2.6 on admit, baseline creatinine 2.5-3.0. Stable. ? Chronic thrombocytopenia: Platelets 107 on admit, baseline platelets 100-130. Stable. ? HFpEF, hypertension, hyperlipidemia, CAD: Appears mildly dry to euvolemic on exam on admit. BP with fairly wide pulse pressure, systolic values in 130s to 140s. Hold home Lasix and lisinopril for now. Continue home statin. DVT prophylaxis: SCDs CODE STATUS: DNR CCA, DO NOT INTUBATE Microbiology Past 72 Hours 03/07/23 19:50 Stool Stool Occult Blood (CLARY) - Final Occult Blood Positive 03/07/23 18:51 Nasal Secretion SARS-CoV-2 & FLU Antigen (Rapid) - Final Laboratory Results 03/07/23 18:23: WBC 4.0 L, RBC 2.70 L, Hgb 7.5 L, Hct 24.5 L, MCV 90.7, MCH 27.8, MCHC 30.6 L, RDW Std Deviation 55.5 H, RDW Coeff of John 17.1 H, Plt Count 107 L, MPV 11.9, Immature Gran % (Auto) 0.200, Neut % (Auto) 63.7, Lymph % (Auto) 25.2, [place] % (Auto) 8.2, Eos % (Auto) 2.5, Baso % (Auto) 0.2, Absolute Neuts (auto) 2.6, Absolute Lymphs (auto) 1.02, Nucleated RBC % 0, Sodium 143, Potassium 4.2, Chloride 107, Carbon Dioxide 29.0, Anion Gap 7, BUN 77 H, Creatinine 2.67 H, Estim Creat Clear Calc 18.24, Est GFR (MDRD) Af Amer 30L, Est GFR (MDRD) Non-Af 24 L, BUN/Creatinine Ratio 28.8 H, Glucose 223 H, Calcium 9.1, Troponin I High Sens 34, B-Natriuretic Peptide 78.3 03/07/23 21:08: Blood Type A NEGATIVE, Antibody Screen NEGATIVE, Crossmatch See Detail 03/08/23 05:30: WBC 3.9 L, RBC 3.02 L, Hgb 8.2 L, Hct 26.5 L, MCV 87.7, MCH 27.2, MCHC 30.9 L, RDW Std Deviation 54.2 H, RDW Coeff of John 17.2 H, Plt Count 80 L, MPV 10.9, Differential Comment SCANNED Charges/Coding Visit Charges Inpatient E&M: 73763 Subs Hosp L2 03/08/23 1612 <Electronically signed by Fred Ramos MD> Cosigner Signature (if applicable): CC: ~ Signed [facility] Work Phone: 1(606) 701-267212-28-2023 Procedure [facility] 03-08-2023 Procedure [facility]12-28-2023 History and physical note [facility] March 08, 2023 2:17am Note Date/Time March 07, 2023 8:41pm [facility] Medical Records Department [address] [place] [id number] H&P Exam - Hospitalist 03/07/232040 MR#: [id number] Acct: [id number] Name: BEULAH BRIGHT Rep #:[id number] : 1940 82 From: Romario house DO PCP: Dr. Talya Nichols, DO Status:ADM IN Location: [place] [id number] HPI - General General Date of Admission: 03/07/23 Date of Service: 03/07/23 Chief Complaint: Worsening shortness of breath, dark stools HPI Narrative BEULAH BRIGHT, is a 82 M who presented to [facility] ED on 03/07/2023 with worsening shortness of breath on exertion and intermittent dark stools. Patient seen at bedside in the ED. Patient was sitting up comfortably in bed, conversing normally, in no acute distress. Patient denies any shortnessof breath at rest. Patient lives at home on his own, has family that lives nearby. He states that he is typically able to do most things around the house for himself without issue. However, he noted that he was becoming more short ofbreath with exertion over the last day or so. He also noted a few episodes of dark stools over that timeframe. Patient follows with Dr. Joy with GI, has had multiple recent admissions for upper GI bleeds with acute on chronic anemia. States that his symptoms today were very similar to previous symptoms he had that led to his admissions, so he called the squad to bring him in this afternoon. Patient otherwise denies any fevers or chills, chest pain, abdominalpain or discomfort, lightheadedness or dizziness. Denies any significant fatigue or weakness at this time. No other acute concerns. [facility] Medical History Acute and chronic respiratory failure with hypoxia Aortic valve stenosis, acquired Atherosclerotic heart disease of l[place] coronary artery without angina pectoris CAD (coronary artery disease) Chronic respiratory failure with hypoxia COPD (chronic obstructive pulmonary disease) Diabetes Diabetes mellitus, type 2 Diastolic CHF Former smoker Former tobacco use History of CAD (coronary artery disease) History of left heart catheterization (LHC) (~03/15/22) HLD (hyperlipidemia) HTN (hypertension) Hypertension Hypothyroidism Kidney disease Mild left ventricular hypertrophy Myocardial infarct Nonrheumatic aortic (valve) stenosis Obesity On home oxygen therapy Polyarthralgia TIA (transient ischemic attack) Home Medications atorvastatin 80 mg tablet 80 mg PO DAILY CHOLESTEROL 05/02/21 [History Last Taken 02/14/23] cholecalciferol (vitamin D3) 25 mcg (1,000 unit) capsule 25 mcg PO DAILY [id number] [History Last Taken 02/15/23] ipratropium 0.5 mg-albuterol 3 mg (2.5 mg base)/3 mL nebulization soln 3 ml inhalation 4X/DAY PRN sob 05/02/21 [History Last Taken 02/15/23] liothyronine 25 mcg tablet 25 mcg PO DAILY THYROID 05/02/21 [History Last Taken 02/15/23] omega-3 fatty acids-vitamin E 1,000 mg capsule 2 cap PO BID SUPPLEMENT 05/02/21 [History Last Taken 02/15/23] tiotropium bromide 18 mcg capsule with inhalation device (Spiriva with HandiHaler) 18 mcg inhalation DAILY SOB 05/02/21 [History Last Taken 02/15/23] vitamins A,C,A-zcoz-zdarum 4,296 mcg-226 mg-90 mg capsule (PreserVision AREDS) 1cap PO BID vitamin 12/13/21 [History Last Taken 02/15/23] lisinopril 20 mg tablet (Zestril) 10 mg PO DAILY blood pressure 03/12/22 [History Last Taken 02/15/23] glimepiride 2 mg tablet 2 mg PO DAILY DM 05/24/22 [History Last Taken 02/15/23] furosemide 40 mg tablet (Lasix) 40 mg PO DAILY diuretic #90 tabs 07/06/22 [Rx Last Taken 02/15/23] empagliflozin 25 mg tablet (Jardiance) 10 mg PO DAILY dm 11/16/22 [History Last Taken 02/15/23] pantoprazole 40 mg tablet,delayed release (Protonix) 40 mg PO BID 12 weeks #168 tabs 11/18/22 [Rx Last Taken 02/15/23] sucralfate 1 gram tablet 1 g PO Q6H 8 weeks #224 tabs 11/18/22 [Rx Last Taken 02/15/23] Allergy/AdvReac Type Severity Reaction Status Date / Time codeine AdvReac Upset Verified 03/07/23 18:27 Stomach Family History Mother CVA (cerebral vascular accident) Heart disease Myocardial infarction Hx of CABG Hypertension Father CVA (cerebral vascular accident) Heart disease Surgical History S/P cataract extraction Social History household members: none housing: house Smoking Status: Former smoker how long ago did patient quit smoking: Quit 2010, prior 1 ppd since teen. alcohol intake: former year quit: 2010 substance use type: does not use ROS Constitutional Constitutional: Denies chills, fatigue, fever(s) or weakness Eyes Eyes: Denies change in vision Cardiovascular Cardiovascular: Reports dyspnea on exertion; Denies chest pain, edema, lightheadedness, palpitations or rapid heart rate Respiratory/Chest Respiratory/Chest: Denies cough, shortness of breath at rest or wheezing Gastrointestinal Gastrointestinal: Reports melena; Denies abdominal pain, constipation, diarrhea,nausea or vomiting Genitourinary Genitourinary: Denies dysuria Musculoskeletal Musculoskeletal: Denies arthralgias or back pain Neurologic Neurologic: Denies dizziness, focal weakness or headache(s) Vital Signs Vital Signs Vital Signs: 03/07/23 18:22 03/07/23 18:29 03/07/23 18:29 Temperature 98.3 F 98.4 F Temperature Source Oral Oral Pulse Rate 106 H 103 H Respiratory Rate 20 H 17 Respiratory Effort Respiratory Depth Blood Pressure 128/46 H 128/46 H Blood Pressure Mean 73 73 Pulse Ox 97 98 96 Oxygen Delivery Method Nasal Cannula Nasal Cannula Nasal Cannula Oxygen Flow Rate (L/min) 2 2 2 03/07/23 18:55 03/07/23 19:11 03/07/23 20:21 Temperature Temperature Source Pulse Rate 103 H 81 Respiratory Rate 24 H Respiratory Effort Respiratory Depth Blood Pressure 133/49 H Blood Pressure Mean 77 Pulse Ox 98 Oxygen Delivery Method Nasal Cannula Nasal Cannula Oxygen Flow Rate (L/min) 3 03/07/23 18:30 Temperature Temperature Source Pulse Rate Respiratory Rate Respiratory Effort Short of Breath Labored Respiratory Depth Shallow Blood Pressure Blood Pressure Mean Pulse Ox Oxygen Delivery Method Oxygen Flow Rate (L/min) Weight Weight: 88 kg Body Mass Index (BMI) 32.3 Physical Exam Const alert, oriented x3 and no apparent distress Constitutional Narrative: Pleasant elderly male, obese, sitting comfortably in bed, conversing normally, no acute distress. General Appearance: cooperative and comfortable HEENT normocephalic, head/scalp atraumatic, hearing grossly normal bilaterally and nasal mucous membranes and turbinates normal HEENT Narrative: Dry mucous membranes. Eyes PERRL, EOMs intact bilaterally and conjunctivae normal Neck full ROM, no lymphadenopathy and supple Lymph Lymphatic: no lymphadenopathy noted Chest inspection of chest normal Resp Resp Narrative: Mildly diminished breath sounds bilaterally throughout. Satting well on home 2 L nasal cannula, no increased work of breathing noted. No wheezing or crackles noted. Cardio regular rate, regular rhythm, no murmurs and peripheral pulses 2+ throughout GI normal to inspection, nondistended, normoactive bowel sounds, soft to palpation,non-tender and non-distended Back/Spine normal ROM Extremity normal to inspection, full ROM and no pedal edema Skin no rashes or lesions noted Neuro moves all extremities and no focal motor deficits Speech: speech normal Psych mental status grossly normal Results Lab / Micro Data 03/07/23 18:23 03/07/23 18:23 Labs: Laboratory Results - last 24 hr 03/07/23 18:23: WBC 4.0 L, RBC 2.70 L, Hgb 7.5 L, Hct 24.5 L, MCV 90.7, MCH 27.8, MCHC 30.6 L, RDW Std Deviation 55.5 H, RDW Coeff of John 17.1 H, Plt Count 107 L, MPV 11.9, Immature Gran % (Auto) 0.200, Neut % (Auto) 63.7, Lymph % (Auto) 25.2, [place] % (Auto) 8.2, Eos % (Auto) 2.5, Baso % (Auto) 0.2, Absolute Neuts (auto) 2.6, Absolute Lymphs (auto) 1.02, Nucleated RBC % 0, Sodium 143, Potassium 4.2, Chloride 107, Carbon Dioxide 29.0, Anion Gap 7, BUN 77 H, Creatinine 2.67 H, Estim Creat Clear Calc 18.24, Est GFR (MDRD) Af Amer 30 L, Est GFR (MDRD) Non-Af 24 L, BUN/Creatinine Ratio 28.8 H, Glucose 223 H, Calcium 9.1, Troponin I High Sens 34, B-Natriuretic Peptide 78.3 Micro: Microbiology 03/07/23 19:50 Stool Stool Occult Blood (CLARY) - Final Occult Blood Positive 03/07/23 18:51 Nasal Secretion SARS-CoV-2 & FLU Antigen (Rapid) - Final Rhythm Strip Rhythm Strip: Sinus Tach Rate: 104 Ectopy: None Imagaing Radiology Impression Chest X-Ray 03/07/23 19:26 IMPRESSION: Poor inspiration with some bibasilar atelectasis. Electronically Signed: Melonie Garcia MD at 19:54 EST Reading Location ID and State: [address] [place] [address] Tel , Service support , Assessment & Plan Assessment/Plan (1) Acute on chronic blood loss anemia: (2) Acute upper gastrointestinal bleeding: PLAN: Plan Patient is an 82-year-old male who presented to [facility] ED on03/07/2023 with worsening shortness of breath on exertion and intermittent dark stools. 1. Acute on chronic anemia, suspected recurrent upper GI bleed Follows with Dr. Joy, last office visit on 02/21/23, see that note for further details on recent history of GI bleeds. Only mild hemoglobin drop at this time, from 7.9 on 02/15 to 7.5 on 03/07. Stool occult blood positive in ED. ? Admit under inpatient status to PCU. GI consulted. N.p.o. at midnight. IV PPI twice daily for now. Continue home sucralfate. Follow-up a.m. CBC. 2. Type 2 diabetes mellitus with hyperglycemia ? BG 223 on admit. Home regimen of glimepiride 2 mg daily, Jardiance 10 mg daily. Last A1c 7.6% in 2017, no results available since then. Repeat A1c ordered. Sliding scale insulin while inpatient. 3. COPD with chronic respiratory failure on 2 L NC at home ? Satting in mid to high 90s on home 2 L nasal cannula at rest. Does not appearto be in acute exacerbation. Continue home Spiriva, DuoNebs as needed. Chronic medical conditions: ? CKD stage IV: Creatinine 2.6 on admit, baseline creatinine 2.5-3.0. Stable. ? Chronic thrombocytopenia: Platelets 107 on admit, baseline platelets 100-130. Stable. ? HFpEF, hypertension, hyperlipidemia, CAD: Appears mildly dry to euvolemic on exam on admit. BP with fairly wide pulse pressure, systolic values in 130s to 140s. Hold home Lasix and lisinopril for now. Continue home statin. DVT prophylaxis: SCDs CODE STATUS: DNR CCA, DO NOT INTUBATE Expected disposition: Home, 2 to 3 days Total clinical time spent by myself addressing the patient's medical issues, reviewing all the data, and collaborating with patient's care team: 55 minutes. Charges/Coding Visit Charges Inpatient E&M: 42041 Init Hosp L2 03/08/23 0217 <Electronically signed by Romario Blancas DO> Cosigner Signature (if applicable): CC: Dr. Romario Blancas, ; Dr. Talya Nichols, ~ Signed [facility] Work Phone: 1(115) 433-494512-27-2023 Discharge summary Author Eric Lester [facility] March 07, 2023 8:49pm Note Date/Time March 07, 2023 6:50pm [facility] Medical Records Department [address] [place] [address] Emergency Department Summary 03/07/23 MR#: [id number] Acct: [id number] Name: BEULAH BRIGHT Rep #:[id number] : 1940 82 From: Eric Lester MD PCP: Dr. Talya Nichols, DO Status:REG ER Location: ED HPI History of Present Illness Chief Complaint: Shortness of Breath Informant: patient Narrative Narrative: 82-year-old patient with COPD presents by EMS for shortness of breath got worse today. He states he has been resting today and not doing anything in particularother than walking around the house, he thinks the context of this worsening seemay be to be conversation. There was no other obvious trigger for this getting worse but it was not sudden. Denies any chest discomfort. Denies any worseningedema in his legs. He has been on Lasix and compliant with that but he is on another diuretic because he states he has issues with his kidneys. He started having a cough and runny diarrhea today. States he has a history of GI bleeding, he did not see the stool today to know whether it is red, black, or not of the above. On no anticoagulants that he knows of. He states he turned his oxygen up from 2-3 today and it did not help so he called 911. Overall he is a very poor historian. [facility] Medical History Acute and chronic respiratory failure with hypoxia Aortic valve stenosis, acquired Atherosclerotic heart disease of [place] coronary artery without angina pectoris CAD (coronary artery disease) Chronic respiratory failure with hypoxia COPD (chronic obstructive pulmonary disease) Diabetes Diabetes mellitus, type 2 Diastolic CHF Former smoker Former tobacco use History of CAD (coronary artery disease) History of left heart catheterization (LHC) (~03/15/22) HLD (hyperlipidemia) HTN (hypertension) Hypertension Hypothyroidism Kidney disease Mild left ventricular hypertrophy Myocardial infarct Nonrheumatic aortic (valve) stenosis Obesity On home oxygen therapy Polyarthralgia TIA (transient ischemic attack) Home Medications atorvastatin 80 mg tablet 80 mg PO DAILY CHOLESTEROL 05/02/21 [History Last Taken 02/14/23] cholecalciferol (vitamin D3) 25 mcg (1,000 unit) capsule 25 mcg PO DAILY [id number] [History Last Taken 02/15/23] ipratropium 0.5 mg-albuterol 3 mg (2.5 mg base)/3 mL nebulization soln 3 ml inhalation 4X/DAY PRN sob 05/02/21 [History Last Taken 02/15/23] liothyronine 25 mcg tablet 25 mcg PO DAILY THYROID 05/02/21 [History Last Taken 02/15/23] omega-3 fatty acids-vitamin E 1,000 mg capsule 2 cap PO BID SUPPLEMENT 05/02/21 [History Last Taken 02/15/23] tiotropium bromide 18 mcg capsule with inhalation device (Spiriva with HandiHaler) 18 mcg inhalation DAILY SOB 05/02/21 [History Last Taken 02/15/23] vitamins A,C,R-ywjo-huwlvd 4,296 mcg-226 mg-90 mg capsule (PreserVision AREDS) 1cap PO BID vitamin 12/13/21 [History Last Taken 02/15/23] lisinopril 20 mg tablet (Zestril) 10 mg PO DAILY blood pressure 03/12/22 [History Last Taken 02/15/23] glimepiride 2 mg tablet 2 mg PO DAILY DM 05/24/22 [History Last Taken 02/15/23] furosemide 40 mg tablet (Lasix) 40 mg PO DAILY diuretic #90 tabs 07/06/22 [Rx Last Taken 02/15/23] empagliflozin 25 mg tablet (Jardiance) 10 mg PO DAILY dm 11/16/22 [History Last Taken 02/15/23] pantoprazole 40 mg tablet,delayed release (Protonix) 40 mg PO BID 12 weeks #168 tabs 11/18/22 [Rx Last Taken 02/15/23] sucralfate 1 gram tablet 1 g PO Q6H 8 weeks #224 tabs 11/18/22 [Rx Last Taken 02/15/23] Allergy/AdvReac Type Severity Reaction Status Date / Time codeine AdvReac Upset Verified 03/07/23 18:27 Stomach Family History Mother CVA (cerebral vascular accident) Heart disease Myocardial infarction Hx of CABG Hypertension Father CVA (cerebral vascular accident) Heart disease Surgical History S/P cataract extraction Social History household members: none housing: house Smoking Status: Former smoker how long ago did patient quit smoking: Quit 2011, prior 1 ppd since teen. alcohol intake: former year quit: 2010 substance use type: does not use ROS ROS ED Constitutional Constitutional ED: Denies chills or fever(s) Eyes Eyes: Denies change in vision or diplopia ENT ENT ED: Denies rhinorrhea or sore throat Cardiovascular Cardiovascular: Reports other Details: Bilateral lower extremity edema no worse than usual ; Denies chest pain or palpitations Respiratory/Chest Respiratory/Chest: Reports cough and dyspnea; Denies sputum Gastrointestinal Gastrointestinal: Reports diarrhea; Denies abdominal pain, nausea or vomiting Genitourinary Genitourinary ED: Denies dysuria or hematuria Musculoskeletal Musculoskeletal: Denies back pain or neck pain Integumentary Denies abscess or rash Neurologic Neurologic: Denies headache(s), paresthesias or weakness Psychiatric Psychiatric: Denies anxiety or suicidal thoughts EXAM Physical Exam Const Vital Signs: 03/07/23 18:22 03/07/23 18:29 03/07/23 18:29 Temperature 98.3 F 98.4 F Temperature Source Oral Oral Pulse Rate 106 H 103 H Respiratory Rate 20 H 17 Respiratory Effort Respiratory Depth Blood Pressure 128/46 H 128/46 H Blood Pressure Mean 73 73 Pulse Ox 97 98 96 Oxygen Delivery Method Nasal Cannula Nasal Cannula Nasal Cannula Oxygen Flow Rate (L/min) 2 2 2 03/07/23 18:55 03/07/23 19:11 03/07/23 20:21 Temperature Temperature Source Pulse Rate 103 H 81 Respiratory Rate 24 H Respiratory Effort Respiratory Depth Blood Pressure 133/49 H Blood Pressure Mean 77 Pulse Ox 98 Oxygen Delivery Method Nasal Cannula Nasal Cannula Oxygen Flow Rate (L/min) 3 03/07/23 18:30 Temperature Temperature Source Pulse Rate Respiratory Rate Respiratory Effort Short of Breath Labored Respiratory Depth Shallow Blood Pressure Blood Pressure Mean Pulse Ox Oxygen Delivery Method Oxygen Flow Rate (L/min) Positive well nourished and well developed General Appearance ED: well developed and NAD HEENT Reports moist mucous membranes normocephalic and atraumatic Eyes PERRL and EOMs intact bilaterally Neck full ROM, supple and no JVD Resp Resp Narrative: Mild tachypnea but no respiratory distress. Diffuse mild expiratory wheezes without any other adventitious breath sounds. Equal breath sounds bilaterally. Trachea midline. Cardio regular rate and regular rhythm Cardio Narrative: Faint heart sounds GI non-tender and non-distended Auscultation: normoactive bowel sounds Palpation: soft Back/Spine no CVA tenderness General Back: other FROM Extremity normal to inspection General Extremety ED: Yes edema; Negative for pulses abnormal or tenderness General Extremity: edema bilateral lower extremity Details: mild (Bilateral pretibial); Negative for pulses abnormal Neuro oriented x3, CN's II-XII intact bilaterally and no sensory deficits noted Sensorium / Orientation: awake and alert Motor Exam: strength 5/5 throughout Psych mental status grossly normal Skin no rashes or lesions noted and no wounds MDM MDM MDM Narrative Medical decision making narrative: Workup basically shows that he has acute on chronic anemia with his hemoglobin down to 7.5, Hemoccult of the stool which closely is brown and not melanotic or red, but Hemoccult positive. His rectal was nontender. His labs are otherwise noted. He is pancytopenic. His creatinine is always elevated, it is lower thanhis last 1, with his BUN chronically elevated as it is at this time. Troponin and BNP are within normal limits. Chest x-ray 2 views my interpretation shows no acute infection. Radiology in agreement. In the meantime was given nebulizer treatments he says his breathing was better but when I had him pull his pants down for Hemoccult and manipulate himself in bed he became very dyspneic even with this activity. He is doing better from an oxygenation standpoint, I have him back on his to home 2 L now. I reviewed some old records. 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 He is on no anticoagulants but takes aspirin every day., The patient did state that he is taking the sucralfate and pantoprazole that he was recommended. Discussed with Dr. Joy who he saw as an outpatient 2 weeks ago. At this time he agrees withadmission and advises continuing the twice daily Protonix, sucralfate, holding aspirin, and he will see the patient in consultation. Patient is amenable to being admitted and getting blood, to which he consents after we discussed pros and cons. History & Record Review Additional record(s) reviewed:: Prior inpatient record, Prior outpatient record and Prior labs Lab Data Attestation: I reviewed the patient's lab results. Labs: Laboratory Results - last 24 hr 03/07/23 18:23 WBC 4.0 L RBC 2.70 L Hgb 7.5 L Hct 24.5 L MCV 90.7 MCH 27.8 MCHC 30.6 L RDW Std Deviation 55.5 H RDW Coeff of John 17.1 H Plt Count 107 L MPV 11.9 Immature Gran % (Auto) 0.200 Neut % (Auto) 63.7 Lymph % (Auto) 25.2 [place] % (Auto) 8.2 Eos % (Auto) 2.5 Baso % (Auto) 0.2 Absolute Neuts (auto) 2.6 Absolute Lymphs (auto) 1.02 Nucleated RBC % 0 Sodium 143 Potassium 4.2 Chloride 107 Carbon Dioxide 29.0 Anion Gap 7 BUN 77 H Creatinine 2.67 H Estim Creat Clear Calc 18.24 Est GFR (MDRD) Af Amer 30 L Est GFR (MDRD) Non-Af 24 L BUN/Creatinine Ratio 28.8 H Glucose 223 H Calcium 9.1 Troponin I High Sens 34 B-Natriuretic Peptide 78.3 Radiography Diagnostic Testing: Clinical Impression(s) from Imaging Studies Chest X-Ray 03/07/23 19:26 IMPRESSION: Poor inspiration with some bibasilar atelectasis. Electronically Signed: Melonie Garcia MD at 19:54 EST , Rhythm Strip Rhythm Strip: Sinus Tach Rate: 104 Ectopy: None EKG Initial EKG: Attestation: I personally reviewed and interpreted this EKG as follows: Interpretation: No Acute Injury Pattern, Sinus Tachycardia and Non-Specific ST Changes Prior EKG tracings: available for review Prior: Unchanged Management Discussion w/another healthcare provider: Hospitalist and Deep Submergence Vehicle Operator (GI friend) Critical Care Time Critical Care Time: Yes Critical care time (excluding procedures): 30-74 minutes (32 min), Including time spent:, Discussing w/Patient &/or Family/Tie Bucker, Discussing w/Consultants, Arranging Admission or Transfer and Performing Direct Patient Care at Bedside Discharge Plan Dx/Rx/DC Orders Clinical Impression: Acute on chronic blood loss anemia, COPD (chronic obstructive pulmonary disease), Acute upper gastrointestinal bleeding, Symptomatic anemia Disposition Disposition: Acute Care Hospital [facility] What to do if you have Problems For any increased pain, shortness of breath, bleeding, nausea or vomiting, chestpain, or any unexpected problems, contact your Primary Care Provider. Call [facility] ([phone]) or report to the closest Emergency Room. Call 911 if necessary. 03/07/232048 <Electronically signed by Eric Lester MD> Cosigner Signature (if applicable): CC: Dr. Talya Nichols, DO ~ Signed [facility] Work Phone: 1(325) 327-612112-27-2023 Discharge summary Author Eric Lester [facility] March 07, 2023 8:49pm Note Date/Time March 07, 2023 6:50pm [facility] Medical Records Department [address] [place] [address] Emergency Department Summary 03/07/23 MR#: [id number] Acct: [id number] Name: BEULAH BRIGHT Rep #:[id number] : 1940 82 From: Eric Lester MD PCP: Dr. Talya Nichols, DO Status:REG ER Location: ED HPI History of Present Illness Chief Complaint: Shortness of Breath Informant: patient Narrative Narrative: 82-year-old patient with COPD presents by EMS for shortness of breath got worse today. He states he has been resting today and not doing anything in particularother than walking around the house, he thinks the context of this worsening seemay be to be conversation. There was no other obvious trigger for this getting worse but it was not sudden. Denies any chest discomfort. Denies any worseningedema in his legs. He has been on Lasix and compliant with that but he is on another diuretic because he states he has issues with his kidneys. He started having a cough and runny diarrhea today. States he has a history of GI bleeding, he did not see the stool today to know whether it is red, black, or not of the above. On no anticoagulants that he knows of. He states he turned his oxygen up from 2-3 today and it did not help so he called 911. Overall he is a very poor historian. [facility] Medical History Acute and chronic respiratory failure with hypoxia Aortic valve stenosis, acquired Atherosclerotic heart disease of [place] coronary artery without angina pectoris CAD (coronary artery disease) Chronic respiratory failure with hypoxia COPD (chronic obstructive pulmonary disease) Diabetes Diabetes mellitus, type 2 Diastolic CHF Former smoker Former tobacco use History of CAD (coronary artery disease) History of left heart catheterization (LHC) (~03/15/22) HLD (hyperlipidemia) HTN (hypertension) Hypertension Hypothyroidism Kidney disease Mild left ventricular hypertrophy Myocardial infarct Nonrheumatic aortic (valve) stenosis Obesity On home oxygen therapy Polyarthralgia TIA (transient ischemic attack) Home Medications atorvastatin 80 mg tablet 80 mg PO DAILY CHOLESTEROL 05/02/21 [History Last Taken 02/14/23] cholecalciferol (vitamin D3) 25 mcg (1,000 unit) capsule 25 mcg PO DAILY [id number]/21/22 [History Last Taken 02/15/23] ipratropium 0.5 mg-albuterol 3 mg (2.5 mg base)/3 mL nebulization soln 3 ml inhalation 4X/DAY PRN sob 05/02/21 [History Last Taken 02/15/23] liothyronine 25 mcg tablet 25 mcg PO DAILY THYROID 05/02/21 [History Last Taken 02/15/23] omega-3 fatty acids-vitamin E 1,000 mg capsule 2 cap PO BID SUPPLEMENT 05/02/21 [History Last Taken 02/15/23] tiotropium bromide 18 mcg capsule with inhalation device (Spiriva with HandiHaler) 18 mcg inhalation DAILY SOB 05/02/21 [History Last Taken 02/15/23] vitamins A,C,O-twwu-qjkqhn 4,296 mcg-226 mg-90 mg capsule (PreserVision AREDS) 1cap PO BID vitamin 12/13/21 [History Last Taken 02/15/23] lisinopril 20 mg tablet (Zestril) 10 mg PO DAILY blood pressure 03/12/22 [History Last Taken 02/15/23] glimepiride 2 mg tablet 2 mg PO DAILY DM 05/24/22 [History Last Taken 02/15/23] furosemide 40 mg tablet (Lasix) 40 mg PO DAILY diuretic #90 tabs 07/06/22 [Rx Last Taken 02/15/23] empagliflozin 25 mg tablet (Jardiance) 10 mg PO DAILY dm 11/16/22 [History Last Taken 02/15/23] pantoprazole 40 mg tablet,delayed release (Protonix) 40 mg PO BID 12 weeks #168 tabs 11/18/22 [Rx Last Taken 02/15/23] sucralfate 1 gram tablet 1 g PO Q6H 8 weeks #224 tabs 11/18/22 [Rx Last Taken 02/15/23] Allergy/AdvReac Type Severity Reaction Status Date / Time codeine AdvReac Upset Verified 03/07/23 18:27 Stomach Family History Mother CVA (cerebral vascular accident) Heart disease Myocardial infarction Hx of CABG Hypertension Father CVA (cerebral vascular accident) Heart disease Surgical History S/P cataract extraction Social History household members: none housing: house Smoking Status: Former smoker how long ago did patient quit smoking: Quit 2011, prior 1 ppd since teen. alcohol intake: former year quit: 2010 substance use type: does not use ROS ROS ED Constitutional Constitutional ED: Denies chills or fever(s) Eyes Eyes: Denies change in vision or diplopia ENT ENT ED: Denies rhinorrhea or sore throat Cardiovascular Cardiovascular: Reports other Details: Bilateral lower extremity edema no worse than usual ; Denies chest pain or palpitations Respiratory/Chest Respiratory/Chest: Reports cough and dyspnea; Denies sputum Gastrointestinal Gastrointestinal: Reports diarrhea; Denies abdominal pain, nausea or vomiting Genitourinary Genitourinary ED: Denies dysuria or hematuria Musculoskeletal Musculoskeletal: Denies back pain or neck pain Integumentary Denies abscess or rash Neurologic Neurologic: Denies headache(s), paresthesias or weakness Psychiatric Psychiatric: Denies anxiety or suicidal thoughts EXAM Physical Exam Const Vital Signs: 03/07/23 18:22 03/07/23 18:29 03/07/23 18:29 Temperature 98.3 F 98.4 F Temperature Source Oral Oral Pulse Rate 106 H 103 H Respiratory Rate 20 H 17 Respiratory Effort Respiratory Depth Blood Pressure 128/46 H 128/46 H Blood Pressure Mean 73 73 Pulse Ox 97 98 96 Oxygen Delivery Method Nasal Cannula Nasal Cannula Nasal Cannula Oxygen Flow Rate (L/min) 2 2 2 03/07/23 18:55 03/07/23 19:11 03/07/23 20:21 Temperature Temperature Source Pulse Rate 103 H 81 Respiratory Rate 24 H Respiratory Effort Respiratory Depth Blood Pressure 133/49 H Blood Pressure Mean 77 Pulse Ox 98 Oxygen Delivery Method Nasal Cannula Nasal Cannula Oxygen Flow Rate (L/min) 3 03/07/23 18:30 Temperature Temperature Source Pulse Rate Respiratory Rate Respiratory Effort Short of Breath Labored Respiratory Depth Shallow Blood Pressure Blood Pressure Mean Pulse Ox Oxygen Delivery Method Oxygen Flow Rate (L/min) Positive well nourished and well developed General Appearance ED: well developed and NAD HEENT Reports moist mucous membranes normocephalic and atraumatic Eyes PERRL and EOMs intact bilaterally Neck full ROM, supple and no JVD Resp Resp Narrative: Mild tachypnea but no respiratory distress. Diffuse mild expiratory wheezes without any other adventitious breath sounds. Equal breath sounds bilaterally. Trachea midline. Cardio regular rate and regular rhythm Cardio Narrative: Faint heart sounds GI non-tender and non-distended Auscultation: normoactive bowel sounds Palpation: soft Back/Spine no CVA tenderness General Back: other FROM Extremity normal to inspection General Extremety ED: Yes edema; Negative for pulses abnormal or tenderness General Extremity: edema bilateral lower extremity Details: mild (Bilateral pretibial); Negative for pulses abnormal Neuro oriented x3, CN's II-XII intact bilaterally and no sensory deficits noted Sensorium / Orientation: awake and alert Motor Exam: strength 5/5 throughout Psych mental status grossly normal Skin no rashes or lesions noted and no wounds MDM MDM MDM Narrative Medical decision making narrative: Workup basically shows that he has acute on chronic anemia with his hemoglobin down to 7.5, Hemoccult of the stool which closely is brown and not melanotic or red, but Hemoccult positive. His rectal was nontender. His labs are otherwise noted. He is pancytopenic. His creatinine is always elevated, it is lower thanhis last 1, with his BUN chronically elevated as it is at this time. Troponin and BNP are within normal limits. Chest x-ray 2 views my interpretation shows no acute infection. Radiology in agreement. In the meantime was given nebulizer treatments he says his breathing was better but when I had him pull his pants down for Hemoccult and manipulate himself in bed he became very dyspneic even with this activity. He is doing better from an oxygenation standpoint, I have him back on his to home 2 L now. I reviewed some old records. 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 He is on no anticoagulants but takes aspirin every day., The patient did state that he is taking the sucralfate and pantoprazole that he was recommended. Discussed with Dr. Joy who he saw as an outpatient 2 weeks ago. At this time he agrees withadmission and advises continuing the twice daily Protonix, sucralfate, holding aspirin, and he will see the patient in consultation. Patient is amenable to being admitted and getting blood, to which he consents after we discussed pros and cons. History & Record Review Additional record(s) reviewed:: Prior inpatient record, Prior outpatient record and Prior labs Lab Data Attestation: I reviewed the patient's lab results. Labs: Laboratory Results - last 24 hr 03/07/23 18:23 WBC 4.0 L RBC 2.70 L Hgb 7.5 L Hct 24.5 L MCV 90.7 MCH 27.8 MCHC 30.6 L RDW Std Deviation 55.5 H RDW Coeff of John 17.1 H Plt Count 107 L MPV 11.9 Immature Gran % (Auto) 0.200 Neut % (Auto) 63.7 Lymph % (Auto) 25.2 [place] % (Auto) 8.2 Eos % (Auto) 2.5 Baso % (Auto) 0.2 Absolute Neuts (auto) 2.6 Absolute Lymphs (auto) 1.02 Nucleated RBC % 0 Sodium 143 Potassium 4.2 Chloride 107 Carbon Dioxide 29.0 Anion Gap 7 BUN 77 H Creatinine 2.67 H Estim Creat Clear Calc 18.24 Est GFR (MDRD) Af Amer 30 L Est GFR (MDRD) Non-Af 24 L BUN/Creatinine Ratio 28.8 H Glucose 223 H Calcium 9.1 Troponin I High Sens 34 B-Natriuretic Peptide 78.3 Radiography Diagnostic Testing: Clinical Impression(s) from Imaging Studies Chest X-Ray 03/07/23 19:26 IMPRESSION: Poor inspiration with some bibasilar atelectasis. Electronically Signed: Melonie Garcia MD at 19:54 EST , Rhythm Strip Rhythm Strip: Sinus Tach Rate: 104 Ectopy: None EKG Initial EKG: Attestation: I personally reviewed and interpreted this EKG as follows: Interpretation: No Acute Injury Pattern, Sinus Tachycardia and Non-Specific ST Changes Prior EKG tracings: available for review Prior: Unchanged Management Discussion w/another healthcare provider: Hospitalist and Deep Submergence Vehicle Operator (GI friend) Critical Care Time Critical Care Time: Yes Critical care time (excluding procedures): 30-74 minutes (32 min), Including time spent:, Discussing w/Patient &/or Family/Tie Bucker, Discussing w/Consultants, Arranging Admission or Transfer and Performing Direct Patient Care at Bedside Discharge Plan Dx/Rx/DC Orders Clinical Impression: Acute on chronic blood loss anemia, COPD (chronic obstructive pulmonary disease), Acute upper gastrointestinal bleeding, Symptomatic anemia Disposition Disposition: Acute Care Hospital [facility] What to do if you have Problems For any increased pain, shortness of breath, bleeding, nausea or vomiting, chestpain, or any unexpected problems, contact your Primary Care Provider. Call [facility] ([phone]) or report to the closest Emergency Room. Call 911 if necessary. 03/07/232048 <Electronically signed by Eric Lester MD> Cosigner Signature (if applicable): CC: Dr. Talya Nichols, DO ~ Signed [facility] Work Phone: 1(651) 139-580612-07-2023 Discharge summary Author Anthony Sosa [facility] February 15, 2023 3:36pm Note Date/Time February 15, 2023 3 :02pm [facility] Medical Records Department [address] [place] [address] Instructions for Home/Discharge Instructions 02/15/23 1500 MR#: [id number] Acct: [id number] Name: BEULAH BRIGHT Rep #:[id number] : 1940 82 From: Anthony Sosa DO PCP: Dr. Talya Nichols DO Status:ADM IN Discharge Instructions Diet Discharge Diet: 1800 Calorie Control Diet Activity Discharge Activity: Return to Normal Activity Weight Bearing Status: Full weight bearing Follow Up Care Test Results: Test results from this visit will be discussed in further detail at your follow- up appointment, if applicable. Discharge Plan Admission Admit Date/Time: 02/13/23 23:48 Primary Reason for Your Visit: presyncope, anemia Attending Provider: Anthony Sosa Primary Care Provider: Talya Nichols Consulting Providers: Erika Landa Instructions Additional Instructions / Restrictions: Start your prednisone prescription tomorrow Discharge Orders/Prescriptions Prescriptions: New prednisone 10 mg tablet 10 mg PO BID Qty: 15 0RF Rx Instructions: 1 twice a day for 5 days, then 1 daily for 5 days, then stop Continued furosemide [Lasix] 40 mg tablet 40 mg PO DAILY Qty: 90 3RF atorvastatin 80 mg tablet 80 mg PO DAILY Patient Comments: TAKE 1 TABLET BY MOUTH ONCE DAILY ipratropium-albuterol 0.5 mg-3 mg(2.5 mg base)/3 mL solution for nebulization 3 ml inhalation 4X/DAY PRN (Reason: sob) Patient Comments: inhale contents of 1 vial ( 3 milliliters ) in nebulizer by mouth... (REFER TO PRESCRIPTION NOTES). liothyronine 25 mcg tablet 25 mcg PO DAILY Patient Comments: TAKE 1 TABLET BY MOUTH ONCE DAILY FOR 90 DAYS tiotropium bromide [Spiriva with HandiHaler] 18 mcg capsule, w/inhalation device 18 mcg INHALATION DAILY Patient Comments: INHALE THE CONTENTS OF 1 CAPSULE TWICE EACH TIME VIA HANDIHALER ONCE DAILY cholecalciferol (vitamin D3) 25 mcg (1,000 unit) Capsule 25 mcg PO DAILY omega-3 fatty acids-vitamin E 1,000 mg Capsule 2 cap PO BID PreserVision AREDS [id number] Capsule 1 cap PO BID lisinopril [Zestril] 20 mg tablet 10 mg PO DAILY Hold Instructions: Resume on 03/18/22. glimepiride 2 mg tablet 2 mg PO DAILY Patient Comments: take 1 tablet by mouth once daily WITH FIRST MEAL OF THE DAY Jardiance 25 mg tablet 10 mg PO DAILY sucralfate 1 gram tablet 1 g PO Q6H 56 Days Qty: 224 0RF pantoprazole [Protonix] 40 mg tablet,delayed release (DR/EC) 40 mg PO BID 84 Days Qty: 168 0RF aspirin 81 mg tablet,chewable 1 tab PO DAILY Patient Comments: CHEW AND SWALLOW 1 TABLET BY MOUTH ONCE DAILY AT 8:00AM Referrals / Follow Up: Talya Nichols DO [Primary Care Provider] - Within 2 Weeks Disposition Disposition (needs filled in before D/C Order can be placed): Home, Self Care 02/15/23 1536<Electronically signed by Anthony Sosa DO>Anthony Sosa DO CC: Dr. Erika Landa, ; Dr. Talya Nichols, ~ Signed [facility] Work Phone: 1(345) 956-862212-06-2023 Progress note Author [facility] February 14, 2023 4:26pm Note Date/Time February 14, 2023 4 :19pm [facility] Medical Records Department [address] [place] [id number] Progress Note - Hospitalist 02/14/23 1618 MR#: [id number] Acct: [id number] Name: BEULAH BRIGHT Rep #:[id number] : 1940 82 From: Anthony Sosa DO PCP: Dr. Talya Nichols DO Status:ADM IN Location: ICU CVICU20 1-1 Reason for Visit Reason for Visit: Diagnoses Nonrheumatic aortic (valve) stenosis (02/13/23) Chronic obstructive pulmonary disease with (acute) exacerbation (02/13/23) Acute bronchospasm (02/13/23) Syncope and collapse (02/13/23) Subjective Subjective Patient was seen and examined today, his VQ scan today showed low probability of PE, his carotid duplex scans show more than 80% stenosis on the right with a more than 70% stenosis on the left. I talked with Dr. Franklin about this and he stated that the patient could follow-up in his office concerning the results anddiscuss possible treatment options. Patient's D-dimer when corrected for the patient's age was not elevated, I stopped his heparin drip today, I think it is unlikely that he has pneumonia, I stopped his antibiotics, patient was given a prescription for prednisone on 02/08/2023-he was to take 60 mg daily for severaldays. This may be the cause of his leukocytosis. Patient was given 1 unit of packed red blood cells today, I will repeat his hemoglobin tonight and again tomorrow. I will also have the patient be seen by OT and PT. Objective Data Objective Data Vital Signs: Vital Signs Temp Pulse Resp BP Pulse Ox O2 Del Method O2 Flow Rate 97.5 F L 99 20 H 127/49 H 94 Nasal Cannula 2 02/14/23 14:20 02/14/23 14:20 02/14/23 14:20 02/14/23 14:20 02/14/23 14:20 02/14/23 14:20 02/14/23 14:20 FiO2 2 02/13/23 22:24 Oxygen Flow Rate (L/min) 2 Oxygen Delivery Method Nasal Cannula Weight: 84.7 kg Body Mass Index (BMI) 31.0 Intake & Output: Intake and Output for Last 24 Hours 02/12/23 02/13/23 02/14/23 23:59 23:59 23:59 Intake Total 1471.52 / 1471.52 Output Total 700 / 700 Balance 771.52 / 771.52 Lab / Micro Data 02/14/23 04:20 02/14/23 04:20 Labs: Laboratory Results - last 24 hr 02/13/23 20:20: WBC 20.7 H, RBC 3.48 L, Hgb 9.3 L, Hct 30.4 L, MCV 87.4, MCH 26.7 L, MCHC 30.6 L, RDW Std Deviation 47.8 H, RDW Coeff of John 15.0 H, Plt Count 207, MPV 10.9, Immature Gran % (Auto) 0.300, Neut % (Auto) 83.1 H, Lymph %(Auto) 5.0 L, [place] % (Auto) 8.3, Eos % (Auto) 3.2, Baso % (Auto) 0.1, Absolute Neuts (auto) 17.2 H, Absolute Lymphs (auto) 1.03, Nucleated RBC % 0, Differential Comment SCANNED, Diff Path Review July, Sodium 143, Potassium 4.0, Chloride 108 H, Carbon Dioxide 29.0, Anion Gap 6, BUN 97 H, Creatinine 3.01 H, Estim Creat Clear Calc 16.18, Est GFR (MDRD) Af Amer 26 L, Est GFR (MDRD) Non-Af21 L, BUN/Creatinine Ratio 32.2 H, Glucose 258 H, Calcium 9.6, Troponin I High Sens 46, B-Natriuretic Peptide 43.2 02/13/23 21:48: Urine Color Yellow, Urine Clarity Clear, Urine pH 5.0, Ur Specific [place] 1.015, Urine Protein 30 H, Urine Glucose (UA) 1000 H, Urine Ketones Negative, Urine Occult Blood 10 H, Urine Nitrite Negative, Urine Bilirubin Negative, Urine Urobilinogen Normal, Ur Leukocyte Esterase Negative, Urine RBC 0 SEEN, Urine WBC 0 SEEN, Ur Squamous Epith Cells 0 SEEN, Urine Bacteria 0 SEEN, Urine Mucus 0 SEEN 02/14/23 00:20: APTT 25.0, D-Dimer Quant (PE/DVT) 0.55 H* 02/14/23 01:05: POC Glucose 283 H 02/14/23 04:20: WBC 9.1, RBC 2.63 L, Hgb 6.8 L, Hct 23.1 L, MCV 87.8, MCH 25.9 L, MCHC 29.4 L, RDW Std Deviation 48.3 H, RDW Coeff of John 15.0 H, Plt Count 124 L, MPV 11.7, Immature Gran % (Auto) 0.300, Neut % (Auto) 92.3 H, Lymph % (Auto) 4.7 L, [place] % (Auto) 1.3, Eos % (Auto) 1.3, Baso % (Auto) 0.1, Absolute Neuts (auto) 8.4 H, Absolute Lymphs (auto) 0.43 L, Nucleated RBC % 0, Differential Comment SCANNED, Sodium 142, Potassium 4.9, Chloride 110 H, Carbon Dioxide 27.0,Anion Gap 5, BUN 103 H*, Creatinine 3.05 H, Estim Creat Clear Calc 15.96, Est GFR (MDRD) Af Amer 25 L, Est GFR (MDRD) Non-Af 21 L, BUN/Creatinine Ratio 33.8 H, Glucose 290 H, Lactic Acid 1.4, Calcium 8.1 L, Phosphorus 3.5, Magnesium 2.0, Total Bilirubin 0.40, AST 11 L, ALT 30, Alkaline Phosphatase 55, Total Protein 6.2 L, Albumin 2.8 L, Globulin 3.4, Albumin/Globulin Ratio 0.8 L, TSH 1.06 02/14/23 06:24: POC Glucose 246 H 02/14/23 06:30: Blood Type A NEGATIVE, Antibody Screen NEGATIVE, Crossmatch See Detail 02/14/23 07:05: APTT 246.2 H* 02/14/23 12:19: POC Glucose 222 H Radiography Diagnostic Testing: Radiology Impression Brain CT 02/13/23 20:46 IMPRESSION: No acute intracranial process. Electronically Signed: Jay Dowd MD at 21:34 EST , Cervical Spine CT 02/13/23 20:46 IMPRESSION: 1. No evidence of acute cervical spinal fracture or spondylolisthesis. 2. Multilevel degenerative changes of the cervical spine. 3. Straightening of the cervical spine which could be due to muscle spasm.. Electronically Signed: Jay Dowd MD at 21:38 EST , Chest X-Ray 02/13/23 21:02 IMPRESSION: No radiographic evidence of acute cardiopulmonary disease. Electronically Signed: Jay Dowd MD at 22:05 EST , Lung Scan-VQ NM 02/13/23 22:57 IMPRESSION: 1. VERY LOW PROBABILITY FOR PULMONARY EMBOLUS (<10%) 99m Tc DTPA aerosol ventilation / 99m Tc MAA pulmonary perfusion imaging examination, according to PIOPED II interpretive criteria with regard given to the presence of > 2 ventilation-perfusion matches without corresponding radiographic changes. (Sotslilibeth et al, Radiology 246: 941, 2008 Sosaad et al, J Nucl Med 49: 1741, 2008). 2. Central clumping of the aerosol is secondary to obstructive airway mechanics and or clinical tachypnea. Electronically Signed: Melonie EstesDO at 10:50 EST , Echocardiogram 02/14/23 00:01 Interpretation Summary Mild concentric left ventricular hypertrophy. The left ventricular ejection fraction is 65 %. Moderate diffuse aortic valve calcification. Moderate aortic stenosis. Mild (1+) aortic valve insufficiency. The study was technically difficult. Ordering Physician: Erika Landa Performed By: Ronald Casarez RCS Physical Exam Const alert, oriented x3 and no apparent distress General Appearance: cooperative, well kempt and well developed Orientation / Consciousness: awake, oriented to person and oriented to place HEENT normocephalic, head/scalp atraumatic and moist oral mucous membranes Eyes PERRL, EOMs intact bilaterally and conjunctivae normal Neck supple, no JVD, thyroid normal and no carotid bruits General: trachea midline Resp normal respiratory effort, no retractions, no use of accessory muscles and clearto auscultation bilaterally Auscultation: Negative for rales, rhonchi or wheezes Cardio regular rate, regular rhythm, S1 normal heart sound, S2 normal heart sound, no murmurs, no rub and no gallops GI normal to inspection, nondistended, normoactive bowel sounds, soft to palpation,non-tender and non-distended Extremity no clubbing, cyanosis or edema Skin no rashes or lesions noted General Skin Exam: no breakdown Neuro CN's II-XII intact bilaterally, moves all extremities, no focal motor deficits and no sensory deficits noted Sensorium / Orientation: awake, alert, oriented to person and oriented to place Speech: speech normal Psych affect normal Assessment & Plan Assessment/Plan (1) Near syncope: PLAN: Plan 1. Presyncope-etiology unclear, patient will be monitored on telemetry, I will have PT and OT evaluate the patient #2 acute anemia-etiology unclear, patient had a recent upper GI bleed, he will remain on Carafate and Protonix, patient's H&H will be repeated tonight and again tomorrow. 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-complicates care, medical course, recovery, and prognosis #6 type 2 diabetes-blood sugars will be monitored, sliding scale insulin will begiven as needed Total clinical time spent by myself addressing the patient's medical issues, reviewing all of his data, and collaborating with patient's care team: 35 minutes Charges/Coding Visit Charges Inpatient E&M: 06625 Subs Hosp L2 02/14/23 1626 <Electronically signed by Anthony Sosa DO> Cosigner Signature (if applicable): CC: ~ Signed [facility] Work Phone: 1(774) 215-213312-06-2023 History and physical note Author Erika Amin [facility] February 14, 2023 5:51am Note Date/Time February 13, 2023 1 0:54pm [facility] Medical Records Department [address] [place] [id number] H&P Exam - Hospitalist 02/13/23 2248 MR#: [id number] Acct: [id number] Name: BEULAH BRIGHT Rep #:[id number] : 1940 82 From: Erika Talbert DO PCP: Dr. Talya Nichols, Status:ADM IN Location: ICU [id number] 1-1 HPI - General General Date of Admission: 02/13/23 Date of Service: 02/13/23 Chief Complaint: Shortness of breath, near syncope and fall. HPI Narrative BEULAH BRIGHT, is a 82 M with a past medical history of essential hypertension, hyperlipidemia, hypothyroidism; on liothyronine 25 mcg daily, diabetes mellitus type 2; of unknown control, obesity; with BMI of 32 this admission, history of tobacco abuse; with subsequent COPD and chronic hypoxic respiratory failure on 2 L nasal cannula continuously, coronary artery disease; status post TN with left heart cath in March 2022, chronic diastolic CHF; withpreserved left ventricular ejection fraction, history of stenosis of aortic valve, history of TIA, chronic kidney disease; stage IV with a baseline creatinine of 2.88 mg/dL and a BUN of 97 mg/dL last week, GERD; with history of GI bleed secondary to gastric ulcers and osteoarthritis who presents to [facility] ER complaining of severe shortness of breath, near syncope and fall. Mr. Bright states he has been getting progressively more short of breath overthe past year in spite of wearing his 2 L of oxygen at home. Then on the evening of February 13, 2023, he noted severe shortness of of breath with minimalexertion with associated chest pain that was intermittent and will resolve afterapproximately 10 minutes of rest. He further states that he walked to the bathroom and felt like he was going to fall down and land on his right shoulder though he does not believe he hit his head or lost consciousness but he was unable to get up because he was so weak and he also states like he felt like he could not see. EMS was then called and he had to be bagged for a few minutes for severe hypoxia. He is awake and alert at this time and denies chest pain orsevere shortness of breath at rest. He also denies blood in stools or blood in his urine or other obvious bleeding. In the ER he was noted to have severe leukocytosis of 20.7 present on admission with negative urinalysis and chest x-ray but with suspected PE with an elevated D-dimer of 0.55 present on admission with V/Q scan pending at this time (because CTA is contraindicated due to his poor renal function) complicated by suspected early pneumonia and acute kidney injury in the setting of chronic kidney disease stage IV with a creatinine of 3.01 mg/dL and a BUN of 97 mg/dL this admission with patient triggering SIRS criteria in the ER and he was then admitted to the PCU for ongoing care for staythat is expected to be greater than 48 hours. [facility] Medical History (Updated 02/14/23 @ 00:[address] Erika Landa, DO) Aortic valve stenosis, acquired Atherosclerotic heart disease of [place] coronary artery without angina pectoris CAD (coronary artery disease) Chronic respiratory failure with hypoxia COPD (chronic obstructive pulmonary disease) Diabetes Diabetes mellitus, type 2 Former smoker Former tobacco use History of CAD (coronary artery disease) History of left heart catheterization (LHC) (~03/15/22) HLD (hyperlipidemia) HTN (hypertension) Hypertension Hypothyroidism Kidney disease Mild left ventricular hypertrophy Myocardial infarct Nonrheumatic aortic (valve) stenosis Obesity On home oxygen therapy Polyarthralgia TIA (transient ischemic attack) Home Medications atorvastatin 80 mg tablet 80 mg PO DAILY CHOLESTEROL 05/02/21 [History Last Taken 05/23/22] cholecalciferol (vitamin D3) 25 mcg (1,000 unit) capsule 25 mcg PO DAILY [id number]/21/22 [History Last Taken 05/24/22] ipratropium 0.5 mg-albuterol 3 mg (2.5 mg base)/3 mL nebulization soln 3 ml inhalation 4X/DAY PRN sob 05/02/21 [History Last Taken 05/23/22] liothyronine 25 mcg tablet 25 mcg PO DAILY THYROID 05/02/21 [History Last Taken 05/24/22] omega-3 fatty acids-vitamin E 1,000 mg capsule 2 cap PO BID SUPPLEMENT 05/02/21 [History Last Taken 05/24/22] tiotropium bromide 18 mcg capsule with inhalation device (Spiriva with HandiHaler) 18 mcg inhalation DAILY SOB 05/02/21 [History Last Taken 05/24/22] vitamins A,C,N-pcby-yyjudx 4,296 mcg-226 mg-90 mg capsule (PreserVision AREDS) 1cap PO BID vitamin 12/13/21 [History Last Taken 05/24/22] lisinopril 20 mg tablet (Zestril) 20 mg PO DAILY blood pressure 03/12/22 [History Last Taken 05/24/22] glimepiride 2 mg tablet 2 mg PO DAILY DM 05/24/22 [History Last Taken 05/24/22] furosemide 40 mg tablet (Lasix) 40 mg PO DAILY diuretic #90 tabs 07/06/22 [Rx Last Taken Unknown] empagliflozin 25 mg tablet (Jardiance) 25 mg PO DAILY dm 11/16/22 [History Last Taken Unknown] pantoprazole 40 mg tablet,delayed release (Protonix) 40 mg PO BID 12 weeks #168 tabs 11/18/22 [Rx Last Taken Unknown] sucralfate 1 gram tablet 1 g PO Q6H 8 weeks #224 tabs 11/18/22 [Rx Last Taken Unknown] prednisone 20 mg tablet 60 mg (3 x 20 mg) PO DAILY #12 TABLETS 02/08/23 [Rx Last Taken Unknown] Allergy/AdvReac Type Severity Reaction Status Date / Time codeine AdvReac Upset Verified 02/13/23 20:13 Stomach Family History Mother CVA (cerebral vascular accident) Heart disease Myocardial infarction Hx of CABG Hypertension Father CVA (cerebral vascular accident) Heart disease Surgical History S/P cataract extraction Social History household members: none housing: house Smoking Status: Former smoker how long ago did patient quit smoking: Quit 2011, prior 1 ppd since teen. alcohol intake: former year quit: 2010 substance use type: does not use ROS ROS Narrative Review of systems: Constitutional: Patient denies fever or chills. Eyes: Patient denies blurry vision. ENT: Patient denies ear pain, runny nose or sore throat. Cardiovascular: Patient admits to chest pain, palpitations and near syncope. Hedenies sensation of heart racing. Respiratory: Patient admits to dyspnea on exertion that progressed to shortness of breath at rest. He denies cough or sputum production. Gastrointestinal: Patient denies abdominal pain, constipation, diarrhea, nausea or vomiting. Genitourinary: Patient denies dysuria, hematuria or urinary frequency. Musculoskeletal: Patient denies arthralgias, myalgias or neck pain. Integumentary: Patient denies abscess, abrasions or rash. Neurologic: Patient denies headache, paresthesias or focal neurologic deficits. Psychiatric: Patient denies anxiety, depression or suicidal ideation. Endocrinology: Patient denies polyuria, polyphagia or polydipsia. Allergic: Patient denies lip swelling, tongue swelling or urticaria. Hematology: Patient denies easy bleeding or easy bruisability. 14 point review of systems otherwise negative except for positives noted above in HPI. Vital Signs Vital Signs Vital Signs: 02/13/23 20:08 02/13/23 20:14 02/13/23 20:30 Temperature 97.4 F L Temperature Source Temporal Pulse Rate 97 Respiratory Rate 20 H Respiratory Effort Short of Breath Blood Pressure 126/56 H Blood Pressure Mean 79 Pulse Ox 98 Oxygen Delivery Method Nasal Cannula Nasal Cannula Nasal Cannula Oxygen Flow Rate (L/min) 2 2 2 Fraction of Inspired Oxygen (FIO2) 02/13/23 20:31 02/13/23 21:49 02/13/23 21:49 Temperature 97.4 F L 97.5 F L 97.5 F L Temperature Source Temporal Oral Oral Pulse Rate 95 103 H 101 H Respiratory Rate 20 H 23 H 18 Respiratory Effort Blood Pressure 126/56 H 105/32 L 105/32 L Blood Pressure Mean 79 56 56 Pulse Ox 95 98 98 Oxygen Delivery Method Nasal Cannula Nasal Cannula Nasal Cannula Oxygen Flow Rate (L/min) 2 98 Fraction of Inspired Oxygen (FIO2) 02/13/23 22:24 02/13/23 22:35 02/13/23 22:36 Temperature 98.2 F Temperature Source Temporal Pulse Rate 95 92 96 Respiratory Rate 20 H 20 H 20 H Respiratory Effort Blood Pressure 104/42 L 104/42 L 104/42 L Blood Pressure Mean 62 62 62 Pulse Ox 100 97 96 Oxygen Delivery Method Nasal Cannula Room Air Oxygen Flow Rate (L/min) Fraction of Inspired Oxygen (FIO2) 2 Weight Weight: 192 lb 7.417 oz Body Mass Index (BMI) 32.0 Physical Exam Const alert, oriented x3, no apparent distress, average body habitus and healthy appearing General Appearance: cooperative HEENT normocephalic, head/scalp atraumatic, hearing grossly normal bilaterally and moist oral mucous membranes Eyes PERRL and EOMs intact bilaterally Neck no lymphadenopathy Resp Resp Narrative: With expertDecreased breath sounds throughout Tory wheeze and scattered rhonchi. Cardio regular rate and regular rhythm GI normal to inspection, nondistended, normoactive bowel sounds, soft to palpation,non-tender and non-distended Skin Skin Narrative: Patient has no evidence of rash at this time. Neuro oriented x3, CN's II-XII intact bilaterally, moves all extremities and no focal motor deficits Sensorium / Orientation: awake, alert, oriented to person, oriented to place andoriented to time Speech: speech normal Motor Exam: strength 5/5 throughout Psych Mood & Affect: anxious Results Medical Records Data Attestation: I reviewed the patient's medical records Lab / Micro Data Attestation: I reviewed the patient's lab results. 02/13/23 20:20 02/13/23 20:20 Labs: Laboratory Results - last 24 hr 02/13/23 20:20: WBC 20.7 H, RBC 3.48 L, Hgb 9.3 L, Hct 30.4 L, MCV 87.4, MCH 26.7 L, MCHC 30.6 L, RDW Std Deviation 47.8 H, RDW Coeff of John 15.0 H, Plt Count 207, MPV 10.9, Immature Gran % (Auto) 0.300, Neut % (Auto) 83.1 H, Lymph %(Auto) 5.0 L, [place] % (Auto) 8.3, Eos % (Auto) 3.2, Baso % (Auto) 0.1, Absolute Neuts (auto) 17.2 H, Absolute Lymphs (auto) 1.03, Nucleated RBC % 0, Differential Comment SCANNED, Diff Path Review July, Sodium 143, Potassium 4.0, Chloride 108 H, Carbon Dioxide 29.0, Anion Gap 6, BUN 97 H, Creatinine 3.01H, Estim Creat Clear Calc 16.18, Est GFR (MDRD) Af Amer 26 L, Est GFR (MDRD) Non-Af 21 L, BUN/Creatinine Ratio 32.2 H, Glucose 258 H, Calcium 9.6, Troponin IHigh Sens 46, B-Natriuretic Peptide 43.2 02/13/23 21:48: Urine Color Yellow, Urine Clarity Clear, Urine pH 5.0, Ur Specific [place] 1.015, Urine Protein 30 H, Urine Glucose (UA) 1000 H, Urine Ketones Negative, Urine Occult Blood 10 H, Urine Nitrite Negative, Urine Bilirubin Negative, Urine Urobilinogen Normal, Ur Leukocyte Esterase Negative, Urine RBC 0 SEEN, Urine WBC 0 SEEN, Ur Squamous Epith Cells 0 SEEN, Urine Bacteria 0 SEEN, Urine Mucus 0 SEEN Imagaing Radiology Impression Brain CT 02/13/23 20:46 IMPRESSION: No acute intracranial process. Electronically Signed: Jay Dowd MD at 21:34 EST , Cervical Spine CT 02/13/23 20:46 IMPRESSION: 1. No evidence of acute cervical spinal fracture or spondylolisthesis. 2. Multilevel degenerative changes of the cervical spine. 3. Straightening of the cervical spine which could be due to muscle spasm.. Electronically Signed: Jay Dowd MD at 21:38 EST , Chest X-Ray 02/13/23 21:02 IMPRESSION: No radiographic evidence of acute cardiopulmonary disease. Electronically Signed: Jay Dowd MD at 22:05 EST Reading Location ID and State: [id number] / [employer] , Service support , Assessment & Plan Assessment/Plan (1) Acute bronchospasm: (2) Acute exacerbation of chronic obstructive pulmonary disease (COPD): PLAN: Plan 1. Severe dyspnea with minimal exertion progressive over the past year in spiteof supplemental oxygen suspicious for pulmonary embolism with an elevated D-dimer of 0.55 present on admission - Admit to PCU. Start IV heparin per protocol and obtain V/Q scan of the lungs in the a.m. as patient cannot receive a CT due to his severe chronic kidney disease. Will also check lower extremity Dopplers to evaluate for possible DVT. 2. Leukocytosis of 20.7 present on admission with suspected acute exacerbation of COPD and possible early pneumonia with SIRS criteria triggered in the ER complicating #1 - Patient was not suspected to have sepsis as his vital signs improved with initial round of treatment without fluid bolus or other aggressivecare. He was empirically started on Rocephin IV and azithromycin IV along with IV Solu-Medrol and scheduled and as needed nebulizers. 3. Chest pain with near syncope causing fall and inability to get up off the ground due to generalized weakness and fatigue arising from #1 & #2 in the setting of known coronary artery disease with previous TN and aortic stenosis - Serialize troponin. Check echocardiogram to evaluate left ventricular ejection fraction. Check carotid Doppler to evaluate for stenosis. 4. Acute kidney injury; in the setting of stage IV chronic kidney disease compounding #1 ? #3 - Gently volume resuscitate and recheck BMP in the a.m. to ensure improvement. 5. History of GERD; with GI bleed from gastric ulcers - Patient has no evidenceof bleeding at this time. But he should be monitored closely. Continue Protonix and Carafate as previous. Therefore, we will check CBC daily to ensurecontinued stability. 6. Essential hypertension - Hold scheduled antihypertensives in light of #2. Give IV hydralazine as needed for systolic blood pressure greater than 160 mmHg. 7. Hyperlipidemia - Resume statin. 8. Hypothyroidism - Continue liothyronine as previous and check TSH this admission. 9. DM-2; of unknown control - ADA diet. Fingerstick blood sugars before every meal and at bedtime + scale insulin. Check hemoglobin A1c to objectively evaluate quality of diabetic control. 10. Obesity; with BMI of 32 this admission - Weight loss will be recommended. 11. DVT prophylaxis - Patient already on IV heparin for #1. Total time: Approximately 75 minutes. Charges/Coding Visit Charges Inpatient E&M: 19601 Init Hosp L3 02/14/23 0551 <Electronically signed by Erika Landa DO> Cosigner Signature (if applicable): CC: Dr. Erika Lnada DO; Dr. Talya Nichols DO~ Signed [facility] Work Phone: [phone] Discharge summary Author Jr Thomas [facility] February 13, 2023 11:05pm Note Date/Time February 13, 2023 8 :50pm [facility] Medical Records Department [address] [place] [address] Emergency Department Summary 02/13/23 MR#: [id number] Acct: [id number] Name: BEULAH BRIGHT Rep #:[id number] : 1940 82 From: Jr Thomas DO PCP: Dr. Talya Nichols DO Status:REG ER Location: ED HPI History of Present Illness Chief Complaint: Shortness of Breath Narrative Narrative: 82-year-old male presenting with dyspnea. He states has had this for over a year. He states that its been progressive. He wears 2 L of oxygen at baseline. He states that once they started giving him Lasix his life got worse. Patient states he also has history of anemia, GI bleed secondary to gastric ulcers. Patient denies any black or bloody stools currently. Patient states that when he ambulates at home on his 2 L of oxygen he gets very short of breath and he gets chest pain from time to time and has to sit down for 10 minutes or so. Patient has history of CAD, hyperlipidemia, CHF, COPD, hypertension. Patient states that today he walked into the bathroom and felt like he was getting down and fell to the ground landing on his right shoulder. He does not believe he hit his head or loss conscious. He was unable to get up because he was so weak. He states he felt like he could not see prior to this. Apparently had to be bagged for couple of minutes on EMS arrival. He is awake and alert and has no complaints of chronic dyspnea at this time. Denies chest pain currently. [facility] Medical History Aortic valve stenosis, acquired Atherosclerotic heart disease of [place] coronary artery without angina pectoris CAD (coronary artery disease) Chronic respiratory failure with hypoxia COPD (chronic obstructive pulmonary disease) Diabetes Diabetes mellitus, type 2 Former smoker Former tobacco use History of CAD (coronary artery disease) History of left heart catheterization (LHC) (~03/15/22) HLD (hyperlipidemia) HTN (hypertension) Hypertension Hypothyroidism Kidney disease Mild left ventricular hypertrophy Myocardial infarct Nonrheumatic aortic (valve) stenosis Obesity On home oxygen therapy Polyarthralgia TIA (transient ischemic attack) Home Medications atorvastatin 80 mg tablet 80 mg PO DAILY CHOLESTEROL 05/02/21 [History Last Taken 05/23/22] cholecalciferol (vitamin D3) 25 mcg (1,000 unit) capsule 25 mcg PO DAILY [id number]/21/22 [History Last Taken 05/24/22] ipratropium 0.5 mg-albuterol 3 mg (2.5 mg base)/3 mL nebulization soln 3 ml inhalation 4X/DAY PRN sob 05/02/21 [History Last Taken 05/23/22] liothyronine 25 mcg tablet 25 mcg PO DAILY THYROID 05/02/21 [History Last Taken 05/24/22] omega-3 fatty acids-vitamin E 1,000 mg capsule 2 cap PO BID SUPPLEMENT 05/02/21 [History Last Taken 05/24/22] tiotropium bromide 18 mcg capsule with inhalation device (Spiriva with HandiHaler) 18 mcg inhalation DAILY SOB 05/02/21 [History Last Taken 05/24/22] vitamins A,C,M-xmhd-uqypmg 4,296 mcg-226 mg-90 mg capsule (PreserVision AREDS) 1cap PO BID vitamin 12/13/21 [History Last Taken 05/24/22] lisinopril 20 mg tablet (Zestril) 20 mg PO DAILY blood pressure 03/12/22 [History Last Taken 05/24/22] glimepiride 2 mg tablet 2 mg PO DAILY DM 05/24/22 [History Last Taken 05/24/22] furosemide 40 mg tablet (Lasix) 40 mg PO DAILY diuretic #90 tabs 07/06/22 [Rx Last Taken Unknown] empagliflozin 25 mg tablet (Jardiance) 25 mg PO DAILY dm 11/16/22 [History Last Taken Unknown] pantoprazole 40 mg tablet,delayed release (Protonix) 40 mg PO BID 12 weeks #168 tabs 11/18/22 [Rx Last Taken Unknown] sucralfate 1 gram tablet 1 g PO Q6H 8 weeks #224 tabs 11/18/22 [Rx Last Taken Unknown] prednisone 20 mg tablet 60 mg (3 x 20 mg) PO DAILY #12 TABLETS 02/08/23 [Rx Last Taken Unknown] Allergy/AdvReac Type Severity Reaction Status Date / Time codeine AdvReac Upset Verified 02/13/23 20:13 Stomach Family History Mother CVA (cerebral vascular accident) Heart disease Myocardial infarction Hx of CABG Hypertension Father CVA (cerebral vascular accident) Heart disease Surgical History S/P cataract extraction Social History household members: none housing: house Smoking Status: Former smoker how long ago did patient quit smoking: Quit 2011, prior 1 ppd since teen. alcohol intake: former year quit: 2011 substance use type: does not use ROS ROS ED Constitutional Constitutional ED: Denies chills, fever(s) or sweats Eyes Eyes: Denies blurry vision or change in vision ENT ENT ED: Denies ear pain or sore throat Cardiovascular Cardiovascular: Reports chest pain, palpitations and other Details: Near syncope; Denies racing heartbeat Respiratory/Chest Respiratory/Chest: Reports dyspnea and dyspnea on exertion; Denies cough or sputum Gastrointestinal Gastrointestinal: Denies abdominal pain, constipation, diarrhea, nausea or vomiting Genitourinary Genitourinary ED: Denies dysuria, hematuria or urinary frequency Musculoskeletal Musculoskeletal: Denies arthralgias, myalgias or neck pain Integumentary Denies abscess, Abrasions or rash Neurologic Neurologic: Denies headache(s), paresthesias or weakness Psychiatric Psychiatric: Denies anxiety, depression, suicidal ideation or suicidal thoughts Endocrine Endocrinology: Denies polydipsia or polyuria EXAM Physical Exam Const Vital Signs: 02/13/23 20:08 02/13/23 20:14 02/13/23 20:30 Temperature 97.4 F L Temperature Source Temporal Pulse Rate 97 Respiratory Rate 20 H Respiratory Effort Short of Breath Blood Pressure 126/56 H Blood Pressure Mean 79 Pulse Ox 98 Oxygen Delivery Method Nasal Cannula Nasal Cannula Nasal Cannula Oxygen Flow Rate (L/min) 2 2 2 Fraction of Inspired Oxygen (FIO2) 02/13/23 20:31 02/13/23 21:49 02/13/23 21:49 Temperature 97.4 F L 97.5 F L 97.5 F L Temperature Source Temporal Oral Oral Pulse Rate 95 103 H 101 H Respiratory Rate 20 H 23 H 18 Respiratory Effort Blood Pressure 126/56 H 105/32 L 105/32 L Blood Pressure Mean 79 56 56 Pulse Ox 95 98 98 Oxygen Delivery Method Nasal Cannula Nasal Cannula Nasal Cannula Oxygen Flow Rate (L/min) 2 98 Fraction of Inspired Oxygen (FIO2) 02/13/23 22:24 02/13/23 22:35 02/13/23 22:36 Temperature 98.2 F Temperature Source Temporal Pulse Rate 95 92 96 Respiratory Rate 20 H 20 H 20 H Respiratory Effort Blood Pressure 104/42 L 104/42 L 104/42 L Blood Pressure Mean 62 62 62 Pulse Ox 100 97 96 Oxygen Delivery Method Nasal Cannula Room Air Oxygen Flow Rate (L/min) Fraction of Inspired Oxygen (FIO2) 2 Positive well nourished, obese and unkempt General Appearance ED: unkempt Nutritional Appearance: obese HEENT Reports moist mucous membranes Eyes PERRL and EOMs intact bilaterally General Eye ED: Negative for pale conjunctiva or scleral icterus Neck no lymphadenopathy Resp normal respiratory effort Cardio regular rate and regular rhythm GI non-tender Neuro oriented x3 Sensorium / Orientation: alert Motor Exam: general weakness Psych mental status grossly normal Appearance: unkempt Skin no wounds and skin turgor normal MDM MDM MDM Narrative Medical decision making narrative: Patient presenting with chest pain, shortness of breath, near syncope. Differential includes ACS, CHF, syncope, near-syncope, dehydration, electrode normalities, anemia, GI bleed, pneumonia, UTI, concussion, skull fracture, intracranial hemorrhage, C-spine fracture. CBC was obtained to assess white blood cell count, hemoglobin, platelets. BMP to assess renal function, electrolytes, glucose, anion gap. High-sensitivity troponin EKG to assess for ischemia/dysrhythmia. Chest x-ray to rule out pneumonia or CHF. Urinalysis to assess for UTI. Patient became hypoxic upon sitting forward in the bed for auscultation better. Abnormal breath sounds currently. He is normotensive withnormal pulse ox on 2 L at 98%. He is afebrile. EKG on my interpretation shows a normal sinus rhythm with a ventricular rate of 90 bpm with premature atrial complexes. CBC shows leukocytosis of 20.7. Hemoglobin close to baseline at 9.3. Platelets normal at 207. Creatinine slightly evaluated 3.01 but near baseline. High-sensitivity troponin 46. BNP 43.2. Urinalysis negative for infection. Chest x-ray my interpretation shows no acute process. Radiologist interprets this and agrees. CT brain and cervical spine are negative for acute findings. Given the patient's weakness and severe shortness of breath even justsitting forward in the bed we opted to admit the patient. I spoke with the hospitalist for admission and he recommended Rocephin and azithromycin for antibiotic coverage in case this is pneumonia. Patient will have a VQ scan while he is in the hospital to rule out PE given his chest pain and shortness ofbreath. Patient minimal this plan. Impression: 1. Chest pain 2. Dyspnea 3. Leukocytosis 4. Near syncope Lab Data Labs: Laboratory Results - last 24 hr 02/13/23 02/13/23 20:20 21:48 WBC 20.7 H RBC 3.48 L Hgb 9.3 L Hct 30.4 L MCV 87.4 MCH 26.7 L MCHC 30.6 L RDW Std Deviation 47.8 H RDW Coeff of John 15.0 H Plt Count 207 MPV 10.9 Immature Gran % (Auto) 0.300 Neut % (Auto) 83.1 H Lymph % (Auto) 5.0 L [place] % (Auto) 8.3 Eos % (Auto) 3.2 Baso % (Auto) 0.1 Absolute Neuts (auto) 17.2 H Absolute Lymphs (auto) 1.03 Nucleated RBC % 0 Differential Comment SCANNED Diff Path Review July Sodium 143 Potassium 4.0 Chloride 108 H Carbon Dioxide 29.0 Anion Gap 6 BUN 97 H Creatinine 3.01 H Estim Creat Clear Calc 16.18 Est GFR (MDRD) Af Amer 26 L Est GFR (MDRD) Non-Af 21 L BUN/Creatinine Ratio 32.2 H Glucose 258 H Calcium 9.6 Troponin I High Sens 46 B-Natriuretic Peptide 43.2 Urine Color Yellow Urine Clarity Clear Urine pH 5.0 Ur Specific [place] 1.015 Urine Protein 30 H Urine Glucose (UA) 1000 H Urine Ketones Negative Urine Occult Blood 10 H Urine Nitrite Negative Urine Bilirubin Negative Urine Urobilinogen Normal Ur Leukocyte Esterase Negative Urine RBC 0 SEEN Urine WBC 0 SEEN Ur Squamous Epith Cells 0 SEEN Urine Bacteria 0 SEEN Urine Mucus 0 SEEN Radiography Diagnostic Testing: Clinical Impression(s) from Imaging Studies Brain CT 02/13/23 20:46 IMPRESSION: No acute intracranial process. Electronically Signed: Jay Dowd MD at 21:34 EST , Cervical Spine CT 02/13/23 20:46 IMPRESSION: 1. No evidence of acute cervical spinal fracture or spondylolisthesis. 2. Multilevel degenerative changes of the cervical spine. 3. Straightening of the cervical spine which could be due to muscle spasm.. Electronically Signed: Jay Dowd MD at 21:38 EST , Chest X-Ray 02/13/23 21:02 IMPRESSION: No radiographic evidence of acute cardiopulmonary disease. Electronically Signed: Jay Dowd MD at 22:05 EST , Discharge Plan Triage Chief Complaint: Shortness of Breath ED Provider: Jr Thomas Dx/Rx/DC Orders Prescriptions: No Action furosemide [Lasix] 40 mg tablet 40 mg PO DAILY Qty: 90 3RF atorvastatin 80 mg tablet 80 mg PO DAILY Patient Comments: TAKE 1 TABLET BY MOUTH ONCE DAILY ipratropium-albuterol 0.5 mg-3 mg(2.5 mg base)/3 mL solution for nebulization 3 ml inhalation 4X/DAY PRN (Reason: sob) Patient Comments: inhale contents of 1 vial ( 3 milliliters ) in nebulizer by mouth... (REFER TO PRESCRIPTION NOTES). liothyronine 25 mcg tablet 25 mcg PO DAILY Patient Comments: TAKE 1 TABLET BY MOUTH ONCE DAILY FOR 90 DAYS tiotropium bromide [Spiriva with HandiHaler] 18 mcg capsule, w/inhalation device 18 mcg INHALATION DAILY Patient Comments: INHALE THE CONTENTS OF 1 CAPSULE TWICE EACH TIME VIA HANDIHALER ONCE DAILY cholecalciferol (vitamin D3) 25 mcg (1,000 unit) Capsule 25 mcg PO DAILY omega-3 fatty acids-vitamin E 1,000 mg Capsule 2 cap PO BID PreserVision AREDS [id number] Capsule 1 cap PO BID lisinopril [Zestril] 20 mg tablet 20 mg PO DAILY Hold Instructions: Resume on 03/18/22. glimepiride 2 mg tablet 2 mg PO DAILY Patient Comments: take 1 tablet by mouth once daily WITH FIRST MEAL OF THE DAY Jardiance 25 mg tablet 25 mg PO DAILY sucralfate 1 gram tablet 1 g PO Q6H 56 Days Qty: 224 0RF pantoprazole [Protonix] 40 mg tablet,delayed release (DR/EC) 40 mg PO BID 84 Days Qty: 168 0RF prednisone 20 mg tablet 60 mg PO DAILY Qty: 12 0RF Primary Care Provider: Talya Nichols Referrals: Talya Nichols DO [Primary Care Provider] - What to do if you have Problems For any increased pain, shortness of breath, bleeding, nausea or vomiting, chestpain, or any unexpected problems, contact your Primary Care Provider. Call [facility] ([phone]) or report to the closest Emergency Room. Call 911 if necessary. 02/13/23 2305 <Electronically signed by Jr Thomas DO> Cosigner Signature (if applicable): CC: Dr. Talya Nichols DO ~ Signed [facility] Work Phone: 1(820) 818-902612-05-2023 Discharge summary Author Jr Thomas [facility] February 13, 2023 11:05pm Note Date/Time February 13, 2023 8 :50pm [facility] Medical Records Department [address] [place] [address] Emergency Department Summary 02/13/23 MR#: [id number] Acct: [id number] Name: BEULAH BRIGHT Rep #:[id number] : 1940 82 From: Jr Thomas DO PCP: Dr. Talya Nichols DO Status:REG ER Location: ED HPI History of Present Illness Chief Complaint: Shortness of Breath Narrative Narrative: 82-year-old male presenting with dyspnea. He states has had this for over a year. He states that its been progressive. He wears 2 L of oxygen at baseline. He states that once they started giving him Lasix his life got worse. Patient states he also has history of anemia, GI bleed secondary to gastric ulcers. Patient denies any black or bloody stools currently. Patient states that when he ambulates at home on his 2 L of oxygen he gets very short of breath and he gets chest pain from time to time and has to sit down for 10 minutes or so. Patient has history of CAD, hyperlipidemia, CHF, COPD, hypertension. Patient states that today he walked into the bathroom and felt like he was getting down and fell to the ground landing on his right shoulder. He does not believe he hit his head or loss conscious. He was unable to get up because he was so weak. He states he felt like he could not see prior to this. Apparently had to be bagged for couple of minutes on EMS arrival. He is awake and alert and has no complaints of chronic dyspnea at this time. Denies chest pain currently. [facility] Medical History Aortic valve stenosis, acquired Atherosclerotic heart disease of [place] coronary artery without angina pectoris CAD (coronary artery disease) Chronic respiratory failure with hypoxia COPD (chronic obstructive pulmonary disease) Diabetes Diabetes mellitus, type 2 Former smoker Former tobacco use History of CAD (coronary artery disease) History of left heart catheterization (LHC) (~03/15/22) HLD (hyperlipidemia) HTN (hypertension) Hypertension Hypothyroidism Kidney disease Mild left ventricular hypertrophy Myocardial infarct Nonrheumatic aortic (valve) stenosis Obesity On home oxygen therapy Polyarthralgia TIA (transient ischemic attack) Home Medications atorvastatin 80 mg tablet 80 mg PO DAILY CHOLESTEROL 05/02/21 [History Last Taken 05/23/22] cholecalciferol (vitamin D3) 25 mcg (1,000 unit) capsule 25 mcg PO DAILY [id number]/21/22 [History Last Taken 05/24/22] ipratropium 0.5 mg-albuterol 3 mg (2.5 mg base)/3 mL nebulization soln 3 ml inhalation 4X/DAY PRN sob 05/02/21 [History Last Taken 05/23/22] liothyronine 25 mcg tablet 25 mcg PO DAILY THYROID 05/02/21 [History Last Taken 05/24/22] omega-3 fatty acids-vitamin E 1,000 mg capsule 2 cap PO BID SUPPLEMENT 05/02/21 [History Last Taken 05/24/22] tiotropium bromide 18 mcg capsule with inhalation device (Spiriva with HandiHaler) 18 mcg inhalation DAILY SOB 05/02/21 [History Last Taken 05/24/22] vitamins A,C,R-lhnu-usmwab 4,296 mcg-226 mg-90 mg capsule (PreserVision AREDS) 1cap PO BID vitamin 12/13/21 [History Last Taken 05/24/22] lisinopril 20 mg tablet (Zestril) 20 mg PO DAILY blood pressure 03/12/22 [History Last Taken 05/24/22] glimepiride 2 mg tablet 2 mg PO DAILY DM 05/24/22 [History Last Taken 05/24/22] furosemide 40 mg tablet (Lasix) 40 mg PO DAILY diuretic #90 tabs 07/06/22 [Rx Last Taken Unknown] empagliflozin 25 mg tablet (Jardiance) 25 mg PO DAILY dm 11/16/22 [History Last Taken Unknown] pantoprazole 40 mg tablet,delayed release (Protonix) 40 mg PO BID 12 weeks #168 tabs 11/18/22 [Rx Last Taken Unknown] sucralfate 1 gram tablet 1 g PO Q6H 8 weeks #224 tabs 11/18/22 [Rx Last Taken Unknown] prednisone 20 mg tablet 60 mg (3 x 20 mg) PO DAILY #12 TABLETS 02/08/23 [Rx Last Taken Unknown] Allergy/AdvReac Type Severity Reaction Status Date / Time codeine AdvReac Upset Verified 02/13/23 20:13 Stomach Family History Mother CVA (cerebral vascular accident) Heart disease Myocardial infarction Hx of CABG Hypertension Father CVA (cerebral vascular accident) Heart disease Surgical History S/P cataract extraction Social History household members: none housing: house Smoking Status: Former smoker how long ago did patient quit smoking: Quit 2010, prior 1 ppd since teen. alcohol intake: former year quit: 2010 substance use type: does not use ROS ROS ED Constitutional Constitutional ED: Denies chills, fever(s) or sweats Eyes Eyes: Denies blurry vision or change in vision ENT ENT ED: Denies ear pain or sore throat Cardiovascular Cardiovascular: Reports chest pain, palpitations and other Details: Near syncope; Denies racing heartbeat Respiratory/Chest Respiratory/Chest: Reports dyspnea and dyspnea on exertion; Denies cough or sputum Gastrointestinal Gastrointestinal: Denies abdominal pain, constipation, diarrhea, nausea or vomiting Genitourinary Genitourinary ED: Denies dysuria, hematuria or urinary frequency Musculoskeletal Musculoskeletal: Denies arthralgias, myalgias or neck pain Integumentary Denies abscess, Abrasions or rash Neurologic Neurologic: Denies headache(s), paresthesias or weakness Psychiatric Psychiatric: Denies anxiety, depression, suicidal ideation or suicidal thoughts Endocrine Endocrinology: Denies polydipsia or polyuria EXAM Physical Exam Const Vital Signs: 02/13/23 20:08 02/13/23 20:14 02/13/23 20:30 Temperature 97.4 F L Temperature Source Temporal Pulse Rate 97 Respiratory Rate 20 H Respiratory Effort Short of Breath Blood Pressure 126/56 H Blood Pressure Mean 79 Pulse Ox 98 Oxygen Delivery Method Nasal Cannula Nasal Cannula Nasal Cannula Oxygen Flow Rate (L/min) 2 2 2 Fraction of Inspired Oxygen (FIO2) 02/13/23 20:31 02/13/23 21:49 02/13/23 21:49 Temperature 97.4 F L 97.5 F L 97.5 F L Temperature Source Temporal Oral Oral Pulse Rate 95 103 H 101 H Respiratory Rate 20 H 23 H 18 Respiratory Effort Blood Pressure 126/56 H 105/32 L 105/32 L Blood Pressure Mean 79 56 56 Pulse Ox 95 98 98 Oxygen Delivery Method Nasal Cannula Nasal Cannula Nasal Cannula Oxygen Flow Rate (L/min) 2 98 Fraction of Inspired Oxygen (FIO2) 02/13/23 22:24 02/13/23 22:35 02/13/23 22:36 Temperature 98.2 F Temperature Source Temporal Pulse Rate 95 92 96 Respiratory Rate 20 H 20 H 20 H Respiratory Effort Blood Pressure 104/42 L 104/42 L 104/42 L Blood Pressure Mean 62 62 62 Pulse Ox 100 97 96 Oxygen Delivery Method Nasal Cannula Room Air Oxygen Flow Rate (L/min) Fraction of Inspired Oxygen (FIO2) 2 Positive well nourished, obese and unkempt General Appearance ED: unkempt Nutritional Appearance: obese HEENT Reports moist mucous membranes Eyes PERRL and EOMs intact bilaterally General Eye ED: Negative for pale conjunctiva or scleral icterus Neck no lymphadenopathy Resp normal respiratory effort Cardio regular rate and regular rhythm GI non-tender Neuro oriented x3 Sensorium / Orientation: alert Motor Exam: general weakness Psych mental status grossly normal Appearance: unkempt Skin no wounds and skin turgor normal MDM MDM MDM Narrative Medical decision making narrative: Patient presenting with chest pain, shortness of breath, near syncope. Differential includes ACS, CHF, syncope, near-syncope, dehydration, electrode normalities, anemia, GI bleed, pneumonia, UTI, concussion, skull fracture, intracranial hemorrhage, C-spine fracture. CBC was obtained to assess white blood cell count, hemoglobin, platelets. BMP to assess renal function, electrolytes, glucose, anion gap. High-sensitivity troponin EKG to assess for ischemia/dysrhythmia. Chest x-ray to rule out pneumonia or CHF. Urinalysis to assess for UTI. Patient became hypoxic upon sitting forward in the bed for auscultation better. Abnormal breath sounds currently. He is normotensive withnormal pulse ox on 2 L at 98%. He is afebrile. EKG on my interpretation shows a normal sinus rhythm with a ventricular rate of 90 bpm with premature atrial complexes. CBC shows leukocytosis of 20.7. Hemoglobin close to baseline at 9.3. Platelets normal at 207. Creatinine slightly evaluated 3.01 but near baseline. High-sensitivity troponin 46. BNP 43.2. Urinalysis negative for infection. Chest x-ray my interpretation shows no acute process. Radiologist interprets this and agrees. CT brain and cervical spine are negative for acute findings. Given the patient's weakness and severe shortness of breath even justsitting forward in the bed we opted to admit the patient. I spoke with the hospitalist for admission and he recommended Rocephin and azithromycin for antibiotic coverage in case this is pneumonia. Patient will have a VQ scan while he is in the hospital to rule out PE given his chest pain and shortness ofbreath. Patient minimal this plan. Impression: 1. Chest pain 2. Dyspnea 3. Leukocytosis 4. Near syncope Lab Data Labs: Laboratory Results - last 24 hr 02/13/23 02/13/23 20:20 21:48 WBC 20.7 H RBC 3.48 L Hgb 9.3 L Hct 30.4 L MCV 87.4 MCH 26.7 L MCHC 30.6 L RDW Std Deviation 47.8 H RDW Coeff of John 15.0 H Plt Count 207 MPV 10.9 Immature Gran % (Auto) 0.300 Neut % (Auto) 83.1 H Lymph % (Auto) 5.0 L [place] % (Auto) 8.3 Eos % (Auto) 3.2 Baso % (Auto) 0.1 Absolute Neuts (auto) 17.2 H Absolute Lymphs (auto) 1.03 Nucleated RBC % 0 Differential Comment SCANNED Diff Path Review May foll Sodium 143 Potassium 4.0 Chloride 108 H Carbon Dioxide 29.0 Anion Gap 6 BUN 97 H Creatinine 3.01 H Estim Creat Clear Calc 16.18 Est GFR (MDRD) Af Amer 26 L Est GFR (MDRD) Non-Af 21 L BUN/Creatinine Ratio 32.2 H Glucose 258 H Calcium 9.6 Troponin I High Sens 46 B-Natriuretic Peptide 43.2 Urine Color Yellow Urine Clarity Clear Urine pH 5.0 Ur Specific [place] 1.015 Urine Protein 30 H Urine Glucose (UA) 1000 H Urine Ketones Negative Urine Occult Blood 10 H Urine Nitrite Negative Urine Bilirubin Negative Urine Urobilinogen Normal Ur Leukocyte Esterase Negative Urine RBC 0 SEEN Urine WBC 0 SEEN Ur Squamous Epith Cells 0 SEEN Urine Bacteria 0 SEEN Urine Mucus 0 SEEN Radiography Diagnostic Testing: Clinical Impression(s) from Imaging Studies Brain CT 02/13/23 20:46 IMPRESSION: No acute intracranial process. Electronically Signed: Jay Dowd MD at 21:34 EST Reading Location ID and State: [facility] / [place] Tel , Service support , Cervical Spine CT 02/13/23 20:46 IMPRESSION: 1. No evidence of acute cervical spinal fracture or spondylolisthesis. 2. Multilevel degenerative changes of the cervical spine. 3. Straightening of the cervical spine which could be due to muscle spasm.. Electronically Signed: Jay Dowd MD at 21:38 EST Reading Location ID and State: [facility] / [place] Tel , Service support , Chest X-Ray 02/13/23 21:02 IMPRESSION: No radiographic evidence of acute cardiopulmonary disease. Electronically Signed: Jay Dowd MD at 22:05 EST , Discharge Plan Triage Chief Complaint: Shortness of Breath ED Provider: Jr Thomas Dx/Rx/DC Orders Prescriptions: No Action furosemide [Lasix] 40 mg tablet 40 mg PO DAILY Qty: 90 3RF atorvastatin 80 mg tablet 80 mg PO DAILY Patient Comments: TAKE 1 TABLET BY MOUTH ONCE DAILY ipratropium-albuterol 0.5 mg-3 mg(2.5 mg base)/3 mL solution for nebulization 3 ml inhalation 4X/DAY PRN (Reason: sob) Patient Comments: inhale contents of 1 vial ( 3 milliliters ) in nebulizer by mouth... (REFER TO PRESCRIPTION NOTES). liothyronine 25 mcg tablet 25 mcg PO DAILY Patient Comments: TAKE 1 TABLET BY MOUTH ONCE DAILY FOR 90 DAYS tiotropium bromide [Spiriva with HandiHaler] 18 mcg capsule, w/inhalation device 18 mcg INHALATION DAILY Patient Comments: INHALE THE CONTENTS OF 1 CAPSULE TWICE EACH TIME VIA HANDIHALER ONCE DAILY cholecalciferol (vitamin D3) 25 mcg (1,000 unit) Capsule 25 mcg PO DAILY omega-3 fatty acids-vitamin E 1,000 mg Capsule 2 cap PO BID PreserVision AREDS 14,320-226-200 [id number] Capsule 1 cap PO BID lisinopril [Zestril] 20 mg tablet 20 mg PO DAILY Hold Instructions: Resume on 03/18/22. glimepiride 2 mg tablet 2 mg PO DAILY Patient Comments: take 1 tablet by mouth once daily WITH FIRST MEAL OF THE DAY Jardiance 25 mg tablet 25 mg PO DAILY sucralfate 1 gram tablet 1 g PO Q6H 56 Days Qty: 224 0RF pantoprazole [Protonix] 40 mg tablet,delayed release (DR/EC) 40 mg PO BID 84 Days Qty: 168 0RF prednisone 20 mg tablet 60 mg PO DAILY Qty: 12 0RF Primary Care Provider: Talya Nichols Referrals: Talya Nichols DO [Primary Care Provider] - What to do if you have Problems For any increased pain, shortness of breath, bleeding, nausea or vomiting, chestpain, or any unexpected problems, contact your Primary Care Provider. Call [facility] ([phone]) or report to the closest Emergency Room. Call 911 if necessary. 02/13/232304 <Electronically signed by Jr Thomas DO> Cosigner Signature (if applicable): CC: Dr. Talya Nichols DO ~ Signed [facility] Work Phone: [phone]) 192-109409-19-2023 Note* Exam Date Time Procedure Performing Provider Status 11/28/22 10:16 AM Echocardiogram, Adult ([facility]) Auth (Verified) [facility] 09-09-2023 Discharge summary Author Erika Godwin [facility] November 18, 2022 12:45pm Note Date/Time November 18, 2022 12:44pm [facility] Medical Records Department [address] [place] [address] Discharge Summary 11/18/22 1234 MR#: [id number] Acct: [id number] Name: BEULAH BRIGHT Rep #:[id number] : 1940 82 From: Erika Godwin MD PCP: Dr. Talya Nichols, Status:ADM [facility] Prov[facility] Date of Admission: 11/16/22 Date of Discharge: 11/18/22 Primary Care Physician: Dr. Talya Nichols, Consultations 11/17/22 02:11 Consult: Gastroenterology Routine Consulting Provider: [facility] Reason for Consult: GI bleed EMERGENT Consult: No MD Notified: Yes Date Notified: 11/17/22 Time Notified: 06:57 Method of Notification: Text Reason For Visit: sob Diagnosis Discharge Diagnosis (1) Anemia: Status: Acute Code(s): D64.9 - Anemia, unspecified (2) GI bleed: Status: Acute Code(s): K92.2 - Gastrointestinal hemorrhage, unspecified Medications at Discharge Home Medications atorvastatin 80 mg tablet 80 mg PO DAILY CHOLESTEROL 05/02/21 cholecalciferol (vitamin D3) 25 mcg (1,000 unit) capsule 25 mcg PO DAILY /21/22 ipratropium 0.5 mg-albuterol 3 mg (2.5 mg base)/3 mL nebulization soln 3 ml inhalation 4X/DAY PRN sob 05/02/21 liothyronine 25 mcg tablet 25 mcg PO DAILY THYROID 05/02/21 omega-3 fatty acids-vitamin E 1,000 mg capsule 2 cap PO BID SUPPLEMENT 05/02/21 tiotropium bromide 18 mcg capsule with inhalation device (Spiriva with HandiHaler) 18 mcg inhalation DAILY SOB 05/02/21 vitamins A,C,O-ycxq-crdsic 4,296 mcg-226 mg-90 mg capsule (PreserVision AREDS) 1cap PO BID vitamin 12/13/21 lisinopril 20 mg tablet (Zestril) 20 mg PO DAILY blood pressure 03/12/22 glimepiride 2 mg tablet 2 mg PO DAILY DM 05/24/22 furosemide 40 mg tablet (Lasix) 40 mg PO DAILY diuretic #90 tabs 07/06/22 empagliflozin 25 mg tablet (Jardiance) 25 mg PO DAILY dm 11/16/22 pantoprazole 40 mg tablet,delayed release (Protonix) 40 mg PO BID 12 weeks #168 tabs 11/18/22 sucralfate 1 gram tablet 1 g PO Q6H 8 weeks #224 tabs 11/18/22 Hospital Course Summary of Care Provided Minutes Spent on Discharge: 35 Hospital Course: Patient is an 82-year-old gentleman admitted with severe anemia 1. Acute on chronic anemia secondary to chronic blood loss anemia from GI bleed ? 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 GI recommended for patient to be treated with PO pantoprazole 40mg bid x 4 weeks and sucralfate 1 gram POP qid for 8 weeks. 2. Chronic congestive heart failure with preserved ejection fraction ? EF 65% not in exacerbation 3. Acute kidney injury ? Superimposed on chronic kidney disease stage IIIb 4. Diabetes mellitus type II -patient's oral hypoglycemics held. Placed on long acting insulin, Accu-Cheks a.c. and at bedtime and covered with sliding scale insulin. Oral agents resumedon discharge 5. Hypertension - Blood pressure controlled, home medications continued with dose adjustment as needed 6. Class I obesity with BMI of 31 ? Weight loss advised 7. COPD ? Currently not in exacerbation 8. DVT prophylaxis ? Bilateral SCD Physical Exam Narrative GENERAL: cooperative HEENT: Atraumatic; normocephalic EYES; Anicteric, Normal Conjunctiva NECK; supple, normal thyroid, RESPIRATORY: Diminished to auscultation CARDIOVASCULAR: Regular S1 S2, GI: soft, normoactive bowel sounds, : No Renal angle tenderness; EXTREMITIES: No edema, no clubbing, MUSCULOSKELETAL: no muscle wasting NEURO: Awake; no lateralizing signs. SKIN: No Rash PSYCH; Flat affect Weight / BMI Weight Weight: 84.8 kg Body Mass Index (BMI) 31.1 ABG / Lab / Microbiology Data 11/18/22 11:10 11/18/22 11:10 Laboratory: Laboratory Results - last 24 hr 11/17/22 16:13: POC Glucose 177 H 11/17/22 21:16: POC Glucose 200 H 11/18/22 05:46: POC Glucose 105 11/18/22 11:10: WBC 6.0, RBC 2.80 L, Hgb 8.4 L, Hct 27.7 L, MCV 98.9 H, MCH 30.0, MCHC 30.3 L, RDW Std Deviation 52.4 H, RDW Coeff of John 14.4, Plt Count 112 L, MPV 10.7, Sodium 142, Potassium 5.0, Chloride 113 H, Carbon Dioxide 25.0,Anion Gap 4 L, BUN 61 H, Creatinine 2.38 H, Estim Creat Clear Calc 20.46, Est GFR (MDRD) Af Amer 34 L, Est GFR (MDRD) Non-Af 28 L, BUN/Creatinine Ratio 25.6 H, Glucose 254 H, Calcium 8.4 L, Phosphorus 2.6, Magnesium 2.1 11/18/22 11:11: POC Glucose 258 H Microbiology: Microbiology 11/16/22 19:10 Stool Stool Occult Blood (CLARY) - Final 11/16/22 16:45 Nasal Secretion SARS-CoV-2 Antigen (Rapid) - Final D/C Instructions Discharge Activity: Return to Normal Activity Call your doctor if you observe: Fever of 101 or Higher, Shortness of breath, Fainting spells and Chest pain Additional Instructions: No aspirin No ibuprofen No naproxen Meaningful Use Info Meaningful Use Diagnoses (Choose all that apply): None applicable Discharge Plan Admission Admit Date/Time: 11/16/22 18:45 Attending Provider: Erika Godwin Primary Care Provider: Talya Nichols Consulting Providers: Sarai Alcantara Discharge Orders/Prescriptions Prescriptions: New sucralfate 1 gram tablet 1 g PO Q6H 56 Days Qty: 224 0RF pantoprazole [Protonix] 40 mg tablet,delayed release (DR/EC) 40 mg PO BID 84 Days Qty: 168 0RF Continued furosemide [Lasix] 40 mg tablet 40 mg PO DAILY Qty: 90 3RF atorvastatin 80 mg tablet 80 mg PO DAILY Patient Comments: TAKE 1 TABLET BY MOUTH ONCE DAILY ipratropium-albuterol 0.5 mg-3 mg(2.5 mg base)/3 mL solution for nebulization 3 ml inhalation 4X/DAY PRN (Reason: sob) Patient Comments: inhale contents of 1 vial ( 3 milliliters ) in nebulizer by mouth... (REFER TO PRESCRIPTION NOTES). liothyronine 25 mcg tablet 25 mcg PO DAILY Patient Comments: TAKE 1 TABLET BY MOUTH ONCE DAILY FOR 90 DAYS tiotropium bromide [Spiriva with HandiHaler] 18 mcg capsule, w/inhalation device 18 mcg INHALATION DAILY Patient Comments: INHALE THE CONTENTS OF 1 CAPSULE TWICE EACH TIME VIA HANDIHALER ONCE DAILY cholecalciferol (vitamin D3) 25 mcg (1,000 unit) Capsule 25 mcg PO DAILY omega-3 fatty acids-vitamin E 1,000 mg Capsule 2 cap PO BID PreserVision AREDS [id number] Capsule 1 cap PO BID lisinopril [Zestril] 20 mg tablet 20 mg PO DAILY Hold Instructions: Resume on 03/18/22. glimepiride 2 mg tablet 2 mg PO DAILY Patient Comments: take 1 tablet by mouth once daily WITH FIRST MEAL OF THE DAY Jardiance 25 mg tablet 25 mg PO DAILY Discontinued aspirin 81 mg tablet,chewable 81 mg PO DAILY@0800 Referrals / Follow Up: Talya Nichols DO [Primary Care Provider] - Within 1 Week Disposition Disposition (needs filled in before D/C Order can be placed): Home Health Service Charges/Coding Visit Charges Inpatient E&M: 71809 Disch Hosp >30min 11/18/22 1245 <Electronically signed by Erika Godwin MD> Cosigner Signature (if applicable): CC: Dr. Erika Godwin MD; Dr. Talya Nichols DO~ Signed [facility] Work Phone: 1(313) 697-207009-08-2023 Consult note Author Fredy Friend [facility] November 17, 2022 6:08pm Note Date/Time November 17, 2022 6:05pm [facility] Medical Records Department [address] [place] [address] Consultation - GI 11/16/22 2300 MR#: [id number] Acct: [id number] Name: BEULAH BRIGHT Rep #:[id number] : 1940 82 From: Fredy Friend DO PCP: Dr. Talya Nichols, DO Status:ADM IN Location: [place] [address] HPI Consult Data Date of Consult: 11/16/22 HPI Narrative Reason for Consultation: Anemia HPI Narrative: BEULAH BRIGHT, is a 82 M who presents with shortness of breath. He has a history of COPD and CHF. recently was diagnosed with worsening CKD. His Lasixwas stopped due to his worsening renal function.Patient states he has had dyspnea for at least 3 months. In March 2022 for non-ST elevated myocardial infarction, acute congestive heart failure, hypertension, and hyperlipidemia. He had an echocardiogram that showed ejection fraction of 65%, mild concentric LVH, and mild aortic valve stenosis. He underwent a heart catheterization on 03/15/2022 that showed left main with 25% stenosis, LAD with mild luminal irregularities, diagonal 1 with 50% stenosis, LCx with mild luminal irregularities, and RCA with mild luminal irregularities. Medical therapy was recommended. He was diuresed and discharged home. He returned to the Emergency Department with ongoing shortness of breath. He was admitted and diuresed. He also has a past medical history of COPD, diabetes mellitus type 2, and hypothyroidism. Vitals in the ED were temp of 98.1F, WA of 99, BP of 132/64, RR of 22 and he wassaturating at 97% on 2L of oxygen. CBC shwoed hb of 6.4, wbc of 5.7, platelets of 124; chemistry showed sodium of 139, potassium of 5.1, Cr of 2.91 and BNP wasonly 50.7. COVID test was negative and CXR showed no acute cardiopulmonary process. He denied any recent history of dark stools, and is on aspirin. He has no history of over the counter pain meds. He is being admitted to be managed foracute on chronic anemia likely due to upper GI bleed. [facility] Medical History (Updated 11/16/22 @ 19:57 by Christine Richmond) Aortic valve stenosis, acquired Atherosclerotic heart disease of [place] coronary artery without angina pectoris CAD (coronary artery disease) Chronic respiratory failure with hypoxia COPD (chronic obstructive pulmonary disease) Diabetes Diabetes mellitus, type 2 Former smoker Former tobacco use History of CAD (coronary artery disease) History of left heart catheterization (LHC) (~03/15/22) HLD (hyperlipidemia) HTN (hypertension) Hypertension Hypothyroidism Kidney disease Mild left ventricular hypertrophy Myocardial infarct Nonrheumatic aortic (valve) stenosis Obesity On home oxygen therapy Polyarthralgia TIA (transient ischemic attack) Home Medications atorvastatin 80 mg tablet 80 mg PO DAILY CHOLESTEROL 05/02/21 [History Last Taken 05/23/22] cholecalciferol (vitamin D3) 25 mcg (1,000 unit) capsule 25 mcg PO DAILY /21/22 [History Last Taken 05/24/22] ipratropium 0.5 mg-albuterol 3 mg (2.5 mg base)/3 mL nebulization soln 3 ml inhalation 4X/DAY PRN sob 05/02/21 [History Last Taken 05/23/22] liothyronine 25 mcg tablet 25 mcg PO DAILY THYROID 05/02/21 [History Last Taken 05/24/22] omega-3 fatty acids-vitamin E 1,000 mg capsule 2 cap PO BID SUPPLEMENT 05/02/21 [History Last Taken 05/24/22] tiotropium bromide 18 mcg capsule with inhalation device (Spiriva with HandiHaler) 18 mcg inhalation DAILY SOB 05/02/21 [History Last Taken 05/24/22] vitamins A,C,Z-nqkk-xbzevd 4,296 mcg-226 mg-90 mg capsule (PreserVision AREDS) 1cap PO BID vitamin 12/13/21 [History Last Taken 05/24/22] lisinopril 20 mg tablet (Zestril) 20 mg PO DAILY blood pressure 03/12/22 [History Last Taken 05/24/22] aspirin 81 mg chewable tablet 81 mg PO DAILY@0800 anticoagulant 04/12/22 [History Last Taken 05/24/22] glimepiride 2 mg tablet 2 mg PO DAILY DM 05/24/22 [History Last Taken 05/24/22] furosemide 40 mg tablet (Lasix) 40 mg PO DAILY diuretic #90 tabs 07/06/22 [Rx Last Taken Unknown] empagliflozin 25 mg tablet (Jardiance) 25 mg PO DAILY dm 11/16/22 [History Last Taken Unknown] Allergy/AdvReac Type Severity Reaction Status Date / Time codeine AdvReac Upset Verified 11/16/22 16:26 Stomach Family History Mother CVA (cerebral vascular accident) Heart disease Myocardial infarction Hx of CABG Hypertension Father CVA (cerebral vascular accident) Heart disease Surgical History S/P cataract extraction Social History household members: none housing: house Smoking Status: Former smoker how long ago did patient quit smoking: Quit 2011, prior 1 ppd since teen. alcohol intake: former year quit: 2010 substance use type: does not use ROS Constitutional Constitutional: Reports fatigue, malaise and weakness; Denies anorexia, change in weight, chills or fever(s) Eyes Eyes: Denies change in vision ENT HEENT: Denies dysphagia or headache(s) Cardiovascular Cardiovascular: Denies chest pain, edema, orthopnea, palpitations, paroxysmal nocturnal dyspnea or syncope Respiratory/Chest Respiratory/Chest: Reports shortness of breath at rest and shortness of breath with exertion; Denies cough or wheezing Gastrointestinal Gastrointestinal: Denies abdominal pain, constipation, diarrhea, dyspepsia, hematochezia, melena, nausea or vomiting Genitourinary Genitourinary: Denies dysuria or urinary frequency Musculoskeletal Musculoskeletal: Denies back pain or extremity pain Neurologic Neurologic: Denies confusion, dizziness, focal weakness, seizures or weakness Psychiatric Psychiatric: Denies anxiety or depression Endocrine Endocrinology: Denies change in body appearance Physical Exam Const alert, oriented x3 and no apparent distress General Appearance: cooperative HEENT normocephalic, head/scalp atraumatic and moist oral mucous membranes Eyes PERRL and EOMs intact bilaterally Neck no lymphadenopathy, supple and no JVD Lymph Lymphatic: no lymphadenopathy noted and no lymphedema noted Resp Resp Narrative: few crackles bilaterally, on room air. Cardio regular rate, regular rhythm, S1 normal heart sound, S2 normal heart sound and no murmurs GI normal to inspection, nondistended, normoactive bowel sounds GI Narrative: abdomen soft, nontender, no organomegaly. Extremity normal capillary refill, no clubbing, cyanosis or edema and no calf tenderness Skin General Skin Exam: no breakdown and turgor normal Neuro CN's II-XII intact bilaterally, no focal motor deficits and no sensory deficits noted Motor Exam: strength 5/5 throughout Psych thought process normal, cooperative and affect normal Appearance: appropriate Lab / Micro Data 11/17/22 05:30 11/17/22 05:30 Labs: Laboratory Results - last 24 hr 11/16/22 18:50: Antibody Screen NEGATIVE, Crossmatch See Detail 11/17/22 05:30: WBC 5.4, RBC 2.84 L, Hgb 8.5 L, Hct 27.3 L, MCV 96.1 H, MCH 29.9, MCHC 31.1 L, RDW Std Deviation 50.0 H, RDW Coeff of John 14.4, Plt Count 102 L, MPV 11.2, Immature Gran % (Auto) 0.200, Neut % (Auto) 58.6, Lymph % (Auto) 24.6, [place] % (Auto) 7.1, Eos % (Auto) 8.8 H, Baso % (Auto) 0.7, Absolute Neuts (auto) 3.1, Absolute Lymphs (auto) 1.32, Nucleated RBC % 0, Sodium 141, Potassium 4.6, Chloride 108 H, Carbon Dioxide 28.0, Anion Gap 5, BUN 79 H, Creatinine 2.48 H, Estim Creat Clear Calc 19.63, Est GFR (MDRD) Af Amer 32 L, Est GFR (MDRD) Non-Af 27 L, BUN/Creatinine Ratio 31.9 H, Glucose 125 H, Calcium 8.8, Total Bilirubin 1.30 H, AST 17, ALT 23, Alkaline Phosphatase 61, Total Protein 6.4, Albumin 2.8 L, Globulin 3.6, Albumin/Globulin Ratio 0.8 L 11/17/22 05:33: POC Glucose 122 H 11/17/22 16:13: POC Glucose 177 H Micro: Microbiology 11/16/22 19:10 Stool Stool Occult Blood (CLARY) - Final 11/16/22 16:45 Nasal Secretion SARS-CoV-2 Antigen (Rapid) - Final Assessment & Plan Assessment/Plan (1) Anemia: (2) GI bleed: PLAN: Plan 82-year-old with past medical history of CHF, CAD status post non-ST segment elevation TN on medical therapy, COPD on oxygen who arrives here today with worsening shortness of breath and discomfort in the anemic to hemoglobin of 6.4. He was transfused 2 units of packed red blood cell. Likely upper GI bleed greater than lower GI bleed. He will need to undergo an upper endoscopy and if negative he will need a colonoscopy. He was explained alternatives, risk, benefits including outstanding bleeding, infection, sepsis, perforation, need for emergent surgery . Have an ASA of 3 Charges/Coding Visit Charges Inpatient E&M: 02416 Init Hosp L3 11/17/22 180 <Electronically signed by Fredy Friend > Cosigner Signature (if applicable): CC: Dr. Talya Nichols DO; Dr. Sarai Alcantara MD~ Signed [facility] Work Phone: 1(249) 971-421209-08-2023 History and physical note Author [facility] November 17, 2022 4:58pm Note Date/Time November 16, 2022 6:58pm [facility] Medical Records Department [address] [place] [id number] History & Physical Exam 11/16/22 1845 MR#: [id number] Acct: [id number] Name: BEULAH BRIGHT Rep #:[id number] : 1940 82 From: Sarai Aclantara MD PCP: Dr. Talya Nichols DO Status:ADM IN Location: [place] [address] HPI - General General Date of Admission: 11/16/22 Date of Service: 11/16/22 Chief Complaint: shortness of breath HPI Narrative BEULAH BRIGHT, is a 82 M with a PMH as outlined who presents via the ED on 11/16/2022 with a complaint of shortness of breath. This has been going on for at least 3 months. He called the EMS today because of his shortness of breath. He denied any hest pain, palpitations, dizziness, nausea, vomiting or any other symptoms. Reviwe of systems was otherwise negative. He says he was recently taken off one medication, but doesnt know which medication it is. He has COPD. He is unable to tell whether he has gained weight or otherwise. Vitals in the ED were temp of 98.1F, WA of 99, BP of 132/64, RR of 22 and he wassaturating at 97% on 2L of oxygen. CBC shwoed hb of 6.4, wbc of 5.7, platelets of 124; chemistry showed sodium of 139, potassium of 5.1, Cr of 2.91 and BNP wasonly 50.7. COVID test was negative and CXR showed no acute cardiopulmonary process. He denied any recent history of dark stools, and is on aspirin. He has no history of over the counter pain meds. He is being admitted to be managed foracute on chronic anemia likely due to upper GI bleed. [facility] Medical History Aortic valve stenosis, acquired Atherosclerotic heart disease of [place] coronary artery without angina pectoris CAD (coronary artery disease) Chronic respiratory failure with hypoxia COPD (chronic obstructive pulmonary disease) Diabetes mellitus, type 2 Former tobacco use History of CAD (coronary artery disease) History of left heart catheterization (LHC) (~03/15/22) HLD (hyperlipidemia) HTN (hypertension) Hypothyroidism Mild left ventricular hypertrophy Nonrheumatic aortic (valve) stenosis Obesity Polyarthralgia Home Medications atorvastatin 80 mg tablet 80 mg PO DAILY CHOLESTEROL 05/02/21 [History Last Taken 05/23/22] cholecalciferol (vitamin D3) 25 mcg (1,000 unit) capsule 25 mcg PO DAILY [id number]/21/22 [History Last Taken 05/24/22] ipratropium 0.5 mg-albuterol 3 mg (2.5 mg base)/3 mL nebulization soln 3 ml inhalation 4X/DAY PRN sob 05/02/21 [History Last Taken 05/23/22] liothyronine 25 mcg tablet 25 mcg PO DAILY THYROID 05/02/21 [History Last Taken 05/24/22] omega-3 fatty acids-vitamin E 1,000 mg capsule 2 cap PO BID SUPPLEMENT 05/02/21 [History Last Taken 05/24/22] tiotropium bromide 18 mcg capsule with inhalation device (Spiriva with HandiHaler) 18 mcg inhalation DAILY SOB 05/02/21 [History Last Taken 05/24/22] vitamins A,C,Z-ugnn-kordgx 4,296 mcg-226 mg-90 mg capsule (PreserVision AREDS) 1cap PO BID vitamin 12/13/21 [History Last Taken 05/24/22] lisinopril 20 mg tablet (Zestril) 20 mg PO DAILY blood pressure 03/12/22 [History Last Taken 05/24/22] aspirin 81 mg chewable tablet 81 mg PO DAILY@0800 anticoagulant 04/12/22 [History Last Taken 05/24/22] glimepiride 2 mg tablet 2 mg PO DAILY DM 05/24/22 [History Last Taken 05/24/22] furosemide 40 mg tablet (Lasix) 40 mg PO DAILY diuretic #90 tabs 07/06/22 [Rx Last Taken Unknown] empagliflozin 25 mg tablet (Jardiance) 25 mg PO DAILY dm 11/16/22 [History Last Taken Unknown] Allergy/AdvReac Type Severity Reaction Status Date / Time codeine AdvReac Upset Verified 11/16/22 16:26 Stomach Family History Mother CVA (cerebral vascular accident) Heart disease Myocardial infarction Hx of CABG Hypertension Father CVA (cerebral vascular accident) Heart disease Surgical History S/P cataract extraction Social History household members: none housing: house Smoking Status: Former smoker how long ago did patient quit smoking: Quit 2010, prior 1 ppd since teen. alcohol intake: former year quit: 2010 substance use type: does not use ROS Constitutional Constitutional: Reports fatigue, malaise and weakness; Denies anorexia, change in weight, chills or fever(s) Eyes Eyes: Denies change in vision ENT HEENT: Denies dysphagia or headache(s) Cardiovascular Cardiovascular: Denies chest pain, edema, orthopnea, palpitations, paroxysmal nocturnal dyspnea or syncope Respiratory/Chest Respiratory/Chest: Reports shortness of breath at rest and shortness of breath with exertion; Denies cough or wheezing Gastrointestinal Gastrointestinal: Denies abdominal pain, constipation, diarrhea, dyspepsia, hematochezia, melena, nausea or vomiting Genitourinary Genitourinary: Denies dysuria or urinary frequency Musculoskeletal Musculoskeletal: Denies back pain or extremity pain Neurologic Neurologic: Denies confusion, dizziness, focal weakness, seizures or weakness Psychiatric Psychiatric: Denies anxiety or depression Endocrine Endocrinology: Denies change in body appearance Vital Signs Vital Signs Vital Signs: 11/16/22 16:26 11/16/22 16:30 11/16/22 16:30 Temperature 98.1 F Temperature Source Oral Pulse Rate 104 H 103 H Respiratory Rate 24 H 22 H Respiratory Effort Labored Respiratory Pattern Tachypnea Blood Pressure 150/82 H 132/64 H Blood Pressure Mean 104 86 Pulse Ox 97 Oxygen Delivery Method Nasal Cannula Nasal Cannula Oxygen Flow Rate (L/min) 2 2 11/16/22 16:47 11/16/22 16:51 Temperature Temperature Source Pulse Rate 99 Respiratory Rate 18 Respiratory Effort Respiratory Pattern Normal Blood Pressure Blood Pressure Mean Pulse Ox Oxygen Delivery Method Nasal Cannula Oxygen Flow Rate (L/min) 2 Weight Weight: 196 lb 10.437 oz Body Mass Index (BMI) 32.7 Physical Exam Const alert, oriented x3 and no apparent distress General Appearance: cooperative HEENT normocephalic, head/scalp atraumatic and moist oral mucous membranes Eyes PERRL and EOMs intact bilaterally Neck no lymphadenopathy, supple and no JVD Lymph Lymphatic: no lymphadenopathy noted and no lymphedema noted Resp Resp Narrative: few crackles bilaterally, on 2L of oxygen by nasal canula Cardio regular rate, regular rhythm, S1 normal heart sound, S2 normal heart sound and no murmurs GI normal to inspection, nondistended, normoactive bowel sounds GI Narrative: abdomen soft, nontender, no organomegaly. Extremity normal capillary refill, no clubbing, cyanosis or edema and no calf tenderness Skin General Skin Exam: no breakdown and turgor normal Neuro CN's II-XII intact bilaterally, no focal motor deficits and no sensory deficits noted Motor Exam: strength 5/5 throughout Psych thought process normal, cooperative and affect normal Appearance: appropriate Results Lab / Micro Data 11/16/22 16:40 11/16/22 16:40 Labs: Laboratory Results - last 24 hr 11/16/22 16:40: WBC 5.7, RBC 2.13 L, Hgb 6.4 L, Hct 20.9 L, MCV 98.1 H, MCH 30.0, MCHC 30.6 L, RDW Std Deviation 50.7 H, RDW Coeff of John 14.6, Plt Count 124 L, MPV 10.9, Immature Gran % (Auto) 0.400, Neut % (Auto) 67.7, Lymph % (Auto) 19.8, [place] % (Auto) 6.2, Eos % (Auto) 5.5 H, Baso % (Auto) 0.4, Absolute Neuts (auto) 3.8, Absolute Lymphs (auto) 1.12, Nucleated RBC % 0, Sodium 139, Potassium 5.1, Chloride 103, Carbon Dioxide 29.0, Anion Gap 7, BUN 85 H, Creatinine 2.91 H, Estim Creat Clear Calc 16.73, Est GFR (MDRD) Af Amer 27 L, Est GFR (MDRD) Non-Af 22 L, BUN/Creatinine Ratio 29.2 H, Glucose 235 H, Calcium 9.1, Troponin I High Sens 25, B-Natriuretic Peptide 50.7 Micro: Microbiology 11/16/22 16:45 Nasal Secretion SARS-CoV-2 Antigen (Rapid) - Final Radiology Impression Chest X-Ray 11/16/22 17:00 IMPRESSION: Normal x-ray examination of the chest. Electronically Signed: Lalit Lamar MD at 17:47 EDT , Assessment & Plan Assessment/Plan (1) Anemia: (2) GI bleed: PLAN: Plan #Acute on chronic anemia due to probable upper GI bleed * admit to PCU * came in with shortness of breath that had been worsening over the last few months. * BNP only 50.7, and CXR showed no acute cardiopulmonary process * Hb is 6.4, baseline Hb is ~10. * transfuse with 2 units of PRBCs; give a dose of IV lasix 20mg x 1 in between the units of blood. * keep NPO * consult gastroenterology * IV pantoprazole 40mg bid * hold aspirin * #COPD: * doesnt appear to be in exacerbation. Breathing treatment with bronchodilators. * I think the shortness of breath is likely due to the acute on chronic anemia due to GI bleed. * #GUZMAN on CKD * Cr is 2.91, with a baseline of ~ 1.5 * BUN/Cr ratio is > 20, therefore GUZMAN on CKD is likely due to GI bleed. * hydrate very gently with iVF * if Cr doesnt improve, consult nephrology * #Hypertension; on amlodipine and carvedilol. Hold lisinopril due to GUZMAN #HFpEF: * not in exacerbation. On furosemide. * Will hold due to GUZMAN on CKD. Has known EF of 65% * had cardiac cath in March 2022 which shwoed multivessel CAD and aortic valve calcificadtion. #Mild aortic stenosis: * 2D echo from March 2022 showed EF of 65% with mild concentric LV hypertrophy and mild aortic stenosis * #DVT prophylaxis: heparin Code status: DNRCCA no intubation * Patient counseled extensively about different types of CODE STATUS including full code, DNR CCA and DNR CCA. Patient elects to be full code. Patient states that his had to be intubated and she really suffered and he does not want to go through that. Patient was tearful while discussing this and was adamant that he did not want CPR or intubation and just wanted to be let go if his heart stopped or he needed a ventilator. He however wants to be treated for any medical condition and he has up untilthe point where he either needs intubation or CPR * total [id number] time 18 minutes. Charges/Coding Visit Charges Inpatient E&M: 66232 Init Hosp L3 Procedures Hospitalists Procedures: 66098 Advncd Care Plan 30 Min 11/17/22 1658 <Electronically signed by Sarai Alcantara MD> Cosigner Signature (if applicable): CC: Dr. Talya Nichols DO; Dr. Sarai Alcantara MD~ Signed [facility] Work Phone: 1(794) 887-206909-08-2023 Progress note Author Sarai [facility] November 17, 2022 4:58pm Note Date/Time November 17, 2022 12:38pm [facility] Medical Records Department [facility] [place] [address] Progress Note 11/17/22 1212 MR#: [id number] Acct: [id number] Name: BEULAH BRIGHT Rep #:[id number] : 1940 82 From: Sarai Alcantara MD PCP: Dr. Talya Nichols DO Status:ADM IN Location: [place] [id number] Subjective Subjective Patient seen and examined. HE feels much better today and had no active complaints. REview of systems is otherwise negative. 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 His shortness of breath has improved today. Review of systems is otherwise negative. Objective Data Objective Data Vital Signs: Vital Signs Temp Pulse Resp BP Pulse Ox O2 Del Method O2 Flow Rate 97.6 F L 84 16 118/45 L 92 Room Air 3 11/17/22 11:50 11/17/22 11:55 11/17/22 11:55 11/17/22 11:55 11/17/22 11:55 11/17/22 11:55 11/17/22 11:50 Oxygen Flow Rate (L/min) 3 Oxygen Delivery Method Room Air Weight: 186 lb 15.232 oz Body Mass Index (BMI) 31.1 Intake & Output: Intake and Output for Last 24 Hours 11/15/22 11/16/22 11/17/22 23:59 23:59 23:59 Intake Total 0 / 0 1695 / 1695 Output Total 1500 / 1500 Balance 0 / -200 195 / 195 Lab / Micro Data 11/17/22 05:30 11/17/22 05:30 Labs: Laboratory Results - last 24 hr 11/16/22 16:40: WBC 5.7, RBC 2.13 L, Hgb 6.4 L, Hct 20.9 L, MCV 98.1 H, MCH 30.0, MCHC 30.6 L, RDW Std Deviation 50.7 H, RDW Coeff of John 14.6, Plt Count 124 L, MPV 10.9, Immature Gran % (Auto) 0.400, Neut % (Auto) 67.7, Lymph % (Auto) 19.8, [place] % (Auto) 6.2, Eos % (Auto) 5.5 H, Baso % (Auto) 0.4, Absolute Neuts (auto) 3.8, Absolute Lymphs (auto) 1.12, Nucleated RBC % 0, Sodium 139, Potassium 5.1, Chloride 103, Carbon Dioxide 29.0, Anion Gap 7, BUN 85 H, Creatinine 2.91 H, Estim Creat Clear Calc 16.73, Est GFR (MDRD) Af Amer 27 L, Est GFR (MDRD) Non-Af 22 L, BUN/Creatinine Ratio 29.2 H, Glucose 235 H, Calcium 9.1, Troponin I High Sens 25, B-Natriuretic Peptide 50.7 11/16/22 18:50: Antibody Screen NEGATIVE, Crossmatch See Detail 11/17/22 05:30: WBC 5.4, RBC 2.84 L, Hgb 8.5 L, Hct 27.3 L, MCV 96.1 H, MCH 29.9, MCHC 31.1 L, RDW Std Deviation 50.0 H, RDW Coeff of John 14.4, Plt Count 102 L, MPV 11.2, Immature Gran % (Auto) 0.200, Neut % (Auto) 58.6, Lymph % (Auto) 24.6, [place] % (Auto) 7.1, Eos % (Auto) 8.8 H, Baso % (Auto) 0.7, Absolute Neuts (auto) 3.1, Absolute Lymphs (auto) 1.32, Nucleated RBC % 0, Sodium 141, Potassium 4.6, Chloride 108 H, Carbon Dioxide 28.0, Anion Gap 5, BUN 79 H, Creatinine 2.48 H, Estim Creat Clear Calc 19.63, Est GFR (MDRD) Af Amer 32 L, Est GFR (MDRD) Non-Af 27 L, BUN/Creatinine Ratio 31.9 H, Glucose 125 H, Calcium 8.8, Total Bilirubin 1.30 H, AST 17, ALT 23, Alkaline Phosphatase 61, Total Protein 6.4, Albumin 2.8 L, Globulin 3.6, Albumin/Globulin Ratio 0.8 L 11/17/22 05:33: POC Glucose 122 H Micro: Microbiology 11/16/22 19:10 Stool Stool Occult Blood (CLARY) - Final 11/16/22 16:45 Nasal Secretion SARS-CoV-2 Antigen (Rapid) - Final Radiography Diagnostic Testing: Radiology Impression Chest X-Ray 11/16/22 17:00 IMPRESSION: Normal x-ray examination of the chest. Electronically Signed: Lalit Lamar MD at 17:47 EDT , Physical Exam Const alert, oriented x3 and no apparent distress General Appearance: cooperative HEENT normocephalic, head/scalp atraumatic and moist oral mucous membranes Eyes PERRL and EOMs intact bilaterally Neck no lymphadenopathy, supple and no JVD Lymph Lymphatic: no lymphadenopathy noted and no lymphedema noted Resp Resp Narrative: few crackles bilaterally, on room air. Cardio regular rate, regular rhythm, S1 normal heart sound, S2 normal heart sound and no murmurs GI normal to inspection, nondistended, normoactive bowel sounds GI Narrative: abdomen soft, nontender, no organomegaly. Extremity normal capillary refill, no clubbing, cyanosis or edema and no calf tenderness Skin General Skin Exam: no breakdown and turgor normal Neuro CN's II-XII intact bilaterally, no focal motor deficits and no sensory deficits noted Motor Exam: strength 5/5 throughout Psych thought process normal, cooperative and affect normal Appearance: appropriate Assessment & Plan Assessment/Plan (1) Anemia: (2) GI bleed: PLAN: Plan #Acute on chronic anemia due to probable upper GI bleed * s/p transfusion of 2 units of PRBCs * Hb today is 8.5. * on IV pantoprazole 40mg bid * s/p EGD today which showed Normal esophagus, a single bleeding angiodysplas tic lesion in the stomach which was treated with a heater probe, Non-bleeding gastric ulcers with no stigmata of bleeding which was Biopsied and Non- bleeding duodenal ulcers with no stigmata of bleeding. * continue with PO pantoprazole 40mg bid x 4 weeks and sucralfate 1 gram POP qid for 8 weeks. * * #COPD: * doesnt appear to be in exacerbation. Breathing treatment with bronchodilators. 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 Baseline Cr is 1.5 * was likely exacerbated by GI bleed * continue gentle hydration with IVF and monitor. * #Hypertension; on amlodipine and carvedilol. Hold lisinopril due to GUZMAN #HFpEF: * not in exacerbation. On furosemide. * Will hold due to GUZMAN on CKD. Has known EF of 65% * had cardiac cath in March 2022 which showed multivessel CAD and aortic valve calcification. #Mild aortic stenosis: * 2D echo from March 2022 showed EF of 65% with mild concentric LV hypertrophy and mild aortic stenosis * #DVT prophylaxis: SCDs Code status: DNRCCA no intubation * Charges/Coding Visit Charges Inpatient E&M: 86372 Subs Hosp L2 11/17/22 1658 <Electronically signed by Sarai Alcantara MD> Sarai Alcantara MD Cosigner Signature (if applicable): CC: ~ Signed [facility] Work Phone: [phone]) 868-609609-08-2023 Procedure [facility] 11-17-2022 Procedure [facility]09-07-2023 Discharge summary Author Lonnie Moreno [facility] November 16, 2022 6:57pm Note Date/Time November 16, 2022 4:47pm [facility] Medical Records Department [address] [place] [address] Emergency Department Summary 11/16/22 MR#: [id number] Acct: [id number] Name: BEULAH BRIGHT Rep #:[id number] : 1940 82 From: Lonnie Moreno MD PCP: Dr. Talya Nichols, DO Status:REG ER Location: ED HPI History of Present Illness Chief Complaint: Shortness of Breath Informant: patient Narrative Narrative: Patient presents with dyspnea. Of note, patient is a very poor informant for details. Patient states he has had dyspnea for at least 3 months. He states it got worsewhen they took me off that one medication. It sounds like they switched him from a medication and possibly switched him to Lasix. But I cannot verify that. I cannot get from him what that medication was for. I can get information that he had chest pain the last time when they did his heart cath but not since. I looked up his heart cath on our computer system and there were some mild luminal irregularities at 25 and 50%. Patient denies a history of CHF. He is not sure if he has COPD. But he is on meds for both of these. He called EMS today because he is tired of being short of breath. It sounds like nothing was markedly different today but I cannot get him to say definitively yes or no if it changed recently. I know he has had more dyspnea the last few months. He does deny fevers he does deny any sputum production. He does not know if he gained weight because he used to weigh himself every day at the nursing facilitybut his eyes are too bad and he cannot read the numbers anymore. He cannot tellme what makes his breathing better. He does state when he takes Lasix he thinksit gets worse but he cannot tell me if it gets worse shortly after Lasix or [facility] since he has been on Lasix. I also note that his chart and cath has shown moderate aortic stenosis. His echocardiogram earlier this year showed good ejection fraction. [facility] Medical History Aortic valve stenosis, acquired Atherosclerotic heart disease of [place] coronary artery without angina pectoris CAD (coronary artery disease) Chronic respiratory failure with hypoxia COPD (chronic obstructive pulmonary disease) Diabetes mellitus, type 2 Former tobacco use History of CAD (coronary artery disease) History of left heart catheterization (LHC) (~03/15/22) HLD (hyperlipidemia) HTN (hypertension) Hypothyroidism Mild left ventricular hypertrophy Nonrheumatic aortic (valve) stenosis Obesity Polyarthralgia Home Medications atorvastatin 80 mg tablet 80 mg PO DAILY CHOLESTEROL 05/02/21 [History Last Taken 05/23/22] cholecalciferol (vitamin D3) 25 mcg (1,000 unit) capsule 25 mcg PO DAILY knmooyn23/21/22 [History Last Taken 05/24/22] ipratropium 0.5 mg-albuterol 3 mg (2.5 mg base)/3 mL nebulization soln 3 ml inhalation 4X/DAY PRN sob 05/02/21 [History Last Taken 05/23/22] liothyronine 25 mcg tablet 25 mcg PO DAILY THYROID 05/02/21 [History Last Taken 05/24/22] omega-3 fatty acids-vitamin E 1,000 mg capsule 2 cap PO BID SUPPLEMENT 05/02/21 [History Last Taken 05/24/22] tiotropium bromide 18 mcg capsule with inhalation device (Spiriva with HandiHaler) 18 mcg inhalation DAILY SOB 05/02/21 [History Last Taken 05/24/22] vitamins A,C,D-bygo-qadkbf 4,296 mcg-226 mg-90 mg capsule (PreserVision AREDS) 1cap PO BID vitamin 12/13/21 [History Last Taken 05/24/22] lisinopril 20 mg tablet (Zestril) 20 mg PO DAILY blood pressure 03/12/22 [History Last Taken 05/24/22] aspirin 81 mg chewable tablet 81 mg PO DAILY@0800 anticoagulant 04/12/22 [History Last Taken 05/24/22] carvedilol 6.25 mg tablet 6.25 mg PO BID blood pressure 04/12/22 [History Last Taken 05/24/22] amlodipine 5 mg tablet 5 mg PO DAILY #90 tabs 05/02/22 [Rx Last Taken 05/24/22] glimepiride 2 mg tablet 2 mg PO DAILY DM 05/24/22 [History Last Taken 05/24/22] metformin 500 mg tablet 500 mg PO BID DM 05/24/22 [History Last Taken 05/24/22] furosemide 40 mg tablet (Lasix) 40 mg PO DAILY #90 tabs 07/06/22 [Rx Last Taken Unknown] Allergy/AdvReac Type Severity Reaction Status Date / Time codeine AdvReac Upset Verified 11/16/22 16:26 Stomach Family History Mother CVA (cerebral vascular accident) Heart disease Myocardial infarction Hx of CABG Hypertension Father CVA (cerebral vascular accident) Heart disease Surgical History S/P cataract extraction Social History household members: none housing: house Smoking Status: Former smoker how long ago did patient quit smoking: Quit 2010, prior 1 ppd since teen. alcohol intake: former year quit: 2010 substance use type: does not use ROS ROS ED ROS Narrative A complete review of systems was performed and is negative except as documented in the history of present illness. Some specific details below. Constitutional: No recent fevers or chills. EYE: No acute visual change but he states his vision is not as good as it used to be. ENT: No difficulty swallowing. No swelling. No pain. No reflux symptoms. CV: See history of present illness. No chest pain now. It sounds like the lasttime he had chest pain is when they did the heart catheterization. It was during the actual procedure not prior to it. Respiratory: See history of present illness. GI: No abdominal pain. No nausea vomiting diarrhea. No blood in stool. : No frequency dysuria or hematuria. Musculoskeletal: No recent trauma. No pains. No known swelling. He states he has a history of gout but he is not having symptoms of it now. Skin: No rash. Nondiaphoretic. Neuro: No weakness or numbness. Endocrine: No polyuria or polydipsia. EXAM Physical Exam Narrative Exam Narrative: CONSTITUTIONAL: Patient is nontoxic in appearance. The patient looks comfortable. Work of breathing looks normal. He does seem very anxious. But heis not having trouble breathing. It his saturations are good. HEENT: No notable trauma. Mucous membranes moist. EYES: No notable conjunctival injection. No proptosis. Question mild pallor. NECK:No JVD. No stridor. CARDIOVASCULAR: Regular rate. Regular rhythm. No notable murmur that I can hear despite his history of aortic stenosis. It is sometimes difficult to have him pause his talking to listen clearly. But I am not able to hear any definitive murmur. There does appear to be some mild JVD. RESPIRATORY: No respiratory distress. Breathing is unlabored. No significant wheezes. With forced expiration there is a slight wheeze. No rhonchi. He doesappear to have basilar rales on exam. These do not clear with deep breath. No indication of pain with a deep breath. Oxygen level is normal at 97% on his 2 Lwhich is his normal oxygen level. GASTROINTESTINAL: Not distended. Bowel sounds are normal. No tenderness. GENITOURINARY: No tenderness over the bladder. No CVA tenderness. MUSCULOSKELETAL: Atraumatic. Trace bilateral equal peripheral edema. No cord. No tenderness along the deep venous system. No asymmetry. No distended veins. NEUROLOGICAL: Patient is alert and appropriate. No focal deficit noted. SKIN: No noted rashes. No diaphoresis. Mild pallor. PSYCHIATRIC: Patient is a bit anxious. But he is not confused. Const Vital Signs: 11/16/22 16:26 11/16/22 16:30 11/16/22 16:30 Temperature 98.1 F Temperature Source Oral Pulse Rate 104 H 103 H Respiratory Rate 24 H 22 H Respiratory Effort Labored Respiratory Pattern Tachypnea Blood Pressure 150/82 H 132/64 H Blood Pressure Mean 104 86 Pulse Ox 97 Oxygen Delivery Method Nasal Cannula Nasal Cannula Oxygen Flow Rate (L/min) 2 2 11/16/22 16:47 11/16/22 16:51 Temperature Temperature Source Pulse Rate 99 Respiratory Rate 18 Respiratory Effort Respiratory Pattern Normal Blood Pressure Blood Pressure Mean Pulse Ox Oxygen Delivery Method Nasal Cannula Oxygen Flow Rate (L/min) 2 MDM MDM MDM Narrative Medical decision making narrative: Patient CBC shows worsening of his anemia. This was down to the tens and 11's beginning of the year. Its been drifting down to 9 and now at 6 4. He denies black or bloody stools. He is only on aspirin. He denies history of ever having a transfusion. Patient's electrolytes also show worsening creatinine. His baseline is probablyabout 1.7-1.9 is now 2.9 indicating an acute kidney injury. I am wondering if this is because he states he is short of breath and that is hard to get around the house and he may not be drinking as much. Note his glucose was also slightly elevated to 35. Troponin is negative despite some long-term symptoms. Patient's beta natruretic peptide is also negative. My independent her potation of his chest x-ray and the final reading shows no acute process. I think this patient's dyspnea likely is worsening. It is hard to get the details of this from him but he did choose today to come in. It is likely due to a combination of chronic COPD, oxygen dependence, CHF and now he has new anemia on top of this. I did do a rectal exam on him. There is no sign of bleeding. The stool is light atkins. Its not red and its not black. I did send off a Hemoccult but he isgrossly negative. I discussed case with the hospitalist. With his weakness, living alone, significant worsening anemia and acute kidney injury I think hospitalization is necessary. Lab Data Attestation: I reviewed the patient's lab results. Labs: Laboratory Results - last 24 hr 11/16/22 16:40 WBC 5.7 RBC 2.13 L Hgb 6.4 L Hct 20.9 L MCV 98.1 H MCH 30.0 MCHC 30.6 L RDW Std Deviation 50.7 H RDW Coeff of John 14.6 Plt Count 124 L MPV 10.9 Immature Gran % (Auto) 0.400 Neut % (Auto) 67.7 Lymph % (Auto) 19.8 [place] % (Auto) 6.2 Eos % (Auto) 5.5 H Baso % (Auto) 0.4 Absolute Neuts (auto) 3.8 Absolute Lymphs (auto) 1.12 Nucleated RBC % 0 Sodium 139 Potassium 5.1 Chloride 103 Carbon Dioxide 29.0 Anion Gap 7 BUN 85 H Creatinine 2.91 H Estim Creat Clear Calc 16.73 Est GFR (MDRD) Af Amer 27 L Est GFR (MDRD) Non-Af 22 L BUN/Creatinine Ratio 29.2 H Glucose 235 H Calcium 9.1 Troponin I High Sens 25 B-Natriuretic Peptide 50.7 Radiography Diagnostic Testing: Clinical Impression(s) from Imaging Studies Chest X-Ray 11/16/22 17:00 IMPRESSION: Normal x-ray examination of the chest. Electronically Signed: Lalit Lamar MD at 17:47 EDT Reading Location ID and State: [facility] / [place] Tel , Service support , EKG Initial EKG: Comments: My independent interpretation of the patient's EKG shows sinus rhythm with first-degree AV block. Borderline tachycardia with overall rate of 97. There is some baseline variation and motion artifact but no ectopy. WA interval is long. QRS duration and QTc are normal. Management Discussion w/another healthcare provider: Hospitalist Discharge Plan Triage Chief Complaint: Shortness of Breath ED Provider: Lonnie Moreno Dx/Rx/DC Orders Clinical Impression: Acute kidney injury, Acute anemia, Acute dyspnea, Oxygen dependent Prescriptions: No Action amlodipine 5 mg tablet 5 mg PO DAILY Qty: 90 3RF furosemide [Lasix] 40 mg tablet 40 mg PO DAILY Qty: 90 3RF atorvastatin 80 mg tablet 80 mg PO DAILY Patient Comments: TAKE 1 TABLET BY MOUTH ONCE DAILY ipratropium-albuterol 0.5 mg-3 mg(2.5 mg base)/3 mL solution for nebulization 3 ml inhalation 4X/DAY PRN (Reason: sob) Patient Comments: inhale contents of 1 vial ( 3 milliliters ) in nebulizer by mouth... (REFER TO PRESCRIPTION NOTES). liothyronine 25 mcg tablet 25 mcg PO DAILY Patient Comments: TAKE 1 TABLET BY MOUTH ONCE DAILY FOR 90 DAYS Spiriva with HandiHaler 18 mcg capsule, w/inhalation device 18 mcg INHALATION DAILY Patient Comments: INHALE THE CONTENTS OF 1 CAPSULE TWICE EACH TIME VIA HANDIHALER ONCE DAILY cholecalciferol (vitamin D3) 25 mcg (1,000 unit) Capsule 25 mcg PO DAILY omega-3 fatty acids-vitamin E 1,000 mg Capsule 2 cap PO BID PreserVision AREDS [id number] Capsule 1 cap PO BID lisinopril [Zestril] 20 mg tablet 20 mg PO DAILY Hold Instructions: Resume on 03/18/22. carvedilol 6.25 mg tablet 6.25 mg PO BID aspirin 81 mg tablet,chewable 81 mg PO DAILY@0800 metformin 500 mg tablet 500 mg PO BID Patient Comments: take 1 tablet by mouth twice a day glimepiride 2 mg tablet 2 mg PO DAILY Patient Comments: take 1 tablet by mouth once daily WITH FIRST MEAL OF THE DAY Primary Care Provider: Talya Nichols Referrals: Talya Nichols DO [Primary Care Provider] - Disposition Disposition: Acute Care Hospital [facility] What to do if you have Problems For any increased pain, shortness of breath, bleeding, nausea or vomiting, chestpain, or any unexpected problems, contact your Primary Care Provider. Call [facility] ([phone]) or report to the closest Emergency Room. Call 911 if necessary. 11/16/221856 <Electronically signed by Lonnie Moreno MD> Cosigner Signature (if applicable): CC: Dr. Talya Nichols DO ~ Signed [facility] Work Phone: 1(767) 128-470809-07-2023 Discharge summary Author Lonnie Moreno [facility] November 16, 2022 6:57pm Note Date/Time November 16, 2022 4:47pm [facility] Medical Records Department [address] [place] [address] Emergency Department Summary 11/16/22 MR#: [id number] Acct: [id number] Name: BEULAH BRIGHT Rep #:[id number] : 1940 82 From: Lonnie Moreno MD PCP: Dr. Talya Nichols DO Status:REG ER Location: ED HPI History of Present Illness Chief Complaint: Shortness of Breath Informant: patient Narrative Narrative: Patient presents with dyspnea. Of note, patient is a very poor informant for details. Patient states he has had dyspnea for at least 3 months. He states it got worsewhen they took me off that one medication. It sounds like they switched him from a medication and possibly switched him to Lasix. But I cannot verify that. I cannot get from him what that medication was for. I can get information that he had chest pain the last time when they did his heart cath but not since. I looked up his heart cath on our computer system and there were some mild luminal irregularities at 25 and 50%. Patient denies a history of CHF. He is not sure if he has COPD. But he is on meds for both of these. He called EMS today because he is tired of being short of breath. It sounds like nothing was markedly different today but I cannot get him to say definitively yes or no if it changed recently. I know he has had more dyspnea the last few months. He does deny fevers he does deny any sputum production. He does not know if he gained weight because he used to weigh himself every day at the nursing facilitybut his eyes are too bad and he cannot read the numbers anymore. He cannot tellme what makes his breathing better. He does state when he takes Lasix he thinksit gets worse but he cannot tell me if it gets worse shortly after Lasix or [facility] since he has been on Lasix. I also note that his chart and cath has shown moderate aortic stenosis. His echocardiogram earlier this year showed good ejection fraction. [facility] Medical History Aortic valve stenosis, acquired Atherosclerotic heart disease of [place] coronary artery without angina pectoris CAD (coronary artery disease) Chronic respiratory failure with hypoxia COPD (chronic obstructive pulmonary disease) Diabetes mellitus, type 2 Former tobacco use History of CAD (coronary artery disease) History of left heart catheterization (LHC) (~03/15/22) HLD (hyperlipidemia) HTN (hypertension) Hypothyroidism Mild left ventricular hypertrophy Nonrheumatic aortic (valve) stenosis Obesity Polyarthralgia Home Medications atorvastatin 80 mg tablet 80 mg PO DAILY CHOLESTEROL 05/02/21 [History Last Taken 05/23/22] cholecalciferol (vitamin D3) 25 mcg (1,000 unit) capsule 25 mcg PO DAILY qnuibrr49/21/22 [History Last Taken 05/24/22] ipratropium 0.5 mg-albuterol 3 mg (2.5 mg base)/3 mL nebulization soln 3 ml inhalation 4X/DAY PRN sob 05/02/21 [History Last Taken 05/23/22] liothyronine 25 mcg tablet 25 mcg PO DAILY THYROID 05/02/21 [History Last Taken 05/24/22] omega-3 fatty acids-vitamin E 1,000 mg capsule 2 cap PO BID SUPPLEMENT 05/02/21 [History Last Taken 05/24/22] tiotropium bromide 18 mcg capsule with inhalation device (Spiriva with HandiHaler) 18 mcg inhalation DAILY SOB 05/02/21 [History Last Taken 05/24/22] vitamins A,C,X-ubsv-lrllwv 4,296 mcg-226 mg-90 mg capsule (PreserVision AREDS) 1cap PO BID vitamin 12/13/21 [History Last Taken 05/24/22] lisinopril 20 mg tablet (Zestril) 20 mg PO DAILY blood pressure 03/12/22 [History Last Taken 05/24/22] aspirin 81 mg chewable tablet 81 mg PO DAILY@0800 anticoagulant 04/12/22 [History Last Taken 05/24/22] carvedilol 6.25 mg tablet 6.25 mg PO BID blood pressure 04/12/22 [History Last Taken 05/24/22] amlodipine 5 mg tablet 5 mg PO DAILY #90 tabs 05/02/22 [Rx Last Taken 05/24/22] glimepiride 2 mg tablet 2 mg PO DAILY DM 05/24/22 [History Last Taken 05/24/22] metformin 500 mg tablet 500 mg PO BID DM 05/24/22 [History Last Taken 05/24/22] furosemide 40 mg tablet (Lasix) 40 mg PO DAILY #90 tabs 07/06/22 [Rx Last Taken Unknown] Allergy/AdvReac Type Severity Reaction Status Date / Time codeine AdvReac Upset Verified 11/16/22 16:26 Stomach Family History Mother CVA (cerebral vascular accident) Heart disease Myocardial infarction Hx of CABG Hypertension Father CVA (cerebral vascular accident) Heart disease Surgical History S/P cataract extraction Social History household members: none housing: house Smoking Status: Former smoker how long ago did patient quit smoking: Quit 2010, prior 1 ppd since teen. alcohol intake: former year quit: 2010 substance use type: does not use ROS ROS ED ROS Narrative A complete review of systems was performed and is negative except as documented in the history of present illness. Some specific details below. Constitutional: No recent fevers or chills. EYE: No acute visual change but he states his vision is not as good as it used to be. ENT: No difficulty swallowing. No swelling. No pain. No reflux symptoms. CV: See history of present illness. No chest pain now. It sounds like the lasttime he had chest pain is when they did the heart catheterization. It was during the actual procedure not prior to it. Respiratory: See history of present illness. GI: No abdominal pain. No nausea vomiting diarrhea. No blood in stool. : No frequency dysuria or hematuria. Musculoskeletal: No recent trauma. No pains. No known swelling. He states he has a history of gout but he is not having symptoms of it now. Skin: No rash. Nondiaphoretic. Neuro: No weakness or numbness. Endocrine: No polyuria or polydipsia. EXAM Physical Exam Narrative Exam Narrative: CONSTITUTIONAL: Patient is nontoxic in appearance. The patient looks comfortable. Work of breathing looks normal. He does seem very anxious. But heis not having trouble breathing. It his saturations are good. HEENT: No notable trauma. Mucous membranes moist. EYES: No notable conjunctival injection. No proptosis. Question mild pallor. NECK:No JVD. No stridor. CARDIOVASCULAR: Regular rate. Regular rhythm. No notable murmur that I can hear despite his history of aortic stenosis. It is sometimes difficult to have him pause his talking to listen clearly. But I am not able to hear any definitive murmur. There does appear to be some mild JVD. RESPIRATORY: No respiratory distress. Breathing is unlabored. No significant wheezes. With forced expiration there is a slight wheeze. No rhonchi. He doesappear to have basilar rales on exam. These do not clear with deep breath. No indication of pain with a deep breath. Oxygen level is normal at 97% on his 2 Lwhich is his normal oxygen level. GASTROINTESTINAL: Not distended. Bowel sounds are normal. No tenderness. GENITOURINARY: No tenderness over the bladder. No CVA tenderness. MUSCULOSKELETAL: Atraumatic. Trace bilateral equal peripheral edema. No cord. No tenderness along the deep venous system. No asymmetry. No distended veins. NEUROLOGICAL: Patient is alert and appropriate. No focal deficit noted. SKIN: No noted rashes. No diaphoresis. Mild pallor. PSYCHIATRIC: Patient is a bit anxious. But he is not confused. Const Vital Signs: 11/16/22 16:26 11/16/22 16:30 11/16/22 16:30 Temperature 98.1 F Temperature Source Oral Pulse Rate 104 H 103 H Respiratory Rate 24 H 22 H Respiratory Effort Labored Respiratory Pattern Tachypnea Blood Pressure 150/82 H 132/64 H Blood Pressure Mean 104 86 Pulse Ox 97 Oxygen Delivery Method Nasal Cannula Nasal Cannula Oxygen Flow Rate (L/min) 2 2 11/16/22 16:47 11/16/22 16:51 Temperature Temperature Source Pulse Rate 99 Respiratory Rate 18 Respiratory Effort Respiratory Pattern Normal Blood Pressure Blood Pressure Mean Pulse Ox Oxygen Delivery Method Nasal Cannula Oxygen Flow Rate (L/min) 2 MDM MDM MDM Narrative Medical decision making narrative: Patient CBC shows worsening of his anemia. This was down to the tens and 11's beginning of the year. Its been drifting down to 9 and now at 6 4. He denies black or bloody stools. He is only on aspirin. He denies history of ever having a transfusion. Patient's electrolytes also show worsening creatinine. His baseline is probablyabout 1.7-1.9 is now 2.9 indicating an acute kidney injury. I am wondering if this is because he states he is short of breath and that is hard to get around the house and he may not be drinking as much. Note his glucose was also slightly elevated to 35. Troponin is negative despite some long-term symptoms. Patient's beta natruretic peptide is also negative. My independent her potation of his chest x-ray and the final reading shows no acute process. I think this patient's dyspnea likely is worsening. It is hard to get the details of this from him but he did choose today to come in. It is likely due to a combination of chronic COPD, oxygen dependence, CHF and now he has new anemia on top of this. I did do a rectal exam on him. There is no sign of bleeding. The stool is light atkins. Its not red and its not black. I did send off a Hemoccult but he isgrossly negative. I discussed case with the hospitalist. With his weakness, living alone, significant worsening anemia and acute kidney injury I think hospitalization is necessary. Lab Data Attestation: I reviewed the patient's lab results. Labs: Laboratory Results - last 24 hr 11/16/22 16:40 WBC 5.7 RBC 2.13 L Hgb 6.4 L Hct 20.9 L MCV 98.1 H MCH 30.0 MCHC 30.6 L RDW Std Deviation 50.7 H RDW Coeff of John 14.6 Plt Count 124 L MPV 10.9 Immature Gran % (Auto) 0.400 Neut % (Auto) 67.7 Lymph % (Auto) 19.8 [place] % (Auto) 6.2 Eos % (Auto) 5.5 H Baso % (Auto) 0.4 Absolute Neuts (auto) 3.8 Absolute Lymphs (auto) 1.12 Nucleated RBC % 0 Sodium 139 Potassium 5.1 Chloride 103 Carbon Dioxide 29.0 Anion Gap 7 BUN 85 H Creatinine 2.91 H Estim Creat Clear Calc 16.73 Est GFR (MDRD) Af Amer 27 L Est GFR (MDRD) Non-Af 22 L BUN/Creatinine Ratio 29.2 H Glucose 235 H Calcium 9.1 Troponin I High Sens 25 B-Natriuretic Peptide 50.7 Radiography Diagnostic Testing: Clinical Impression(s) from Imaging Studies Chest X-Ray 11/16/22 17:00 IMPRESSION: Normal x-ray examination of the chest. Electronically Signed: Lalit Lamar MD at 17:47 EDT , EKG Initial EKG: Comments: My independent interpretation of the patient's EKG shows sinus rhythm with first-degree AV block. Borderline tachycardia with overall rate of 97. There is some baseline variation and motion artifact but no ectopy. WA interval is long. QRS duration and QTc are normal. Management Discussion w/another healthcare provider: Hospitalist Discharge Plan Triage Chief Complaint: Shortness of Breath ED Provider: Lonnie Moreno Dx/Rx/DC Orders Clinical Impression: Acute kidney injury, Acute anemia, Acute dyspnea, Oxygen dependent Prescriptions: No Action amlodipine 5 mg tablet 5 mg PO DAILY Qty: 90 3RF furosemide [Lasix] 40 mg tablet 40 mg PO DAILY Qty: 90 3RF atorvastatin 80 mg tablet 80 mg PO DAILY Patient Comments: TAKE 1 TABLET BY MOUTH ONCE DAILY ipratropium-albuterol 0.5 mg-3 mg(2.5 mg base)/3 mL solution for nebulization 3 ml inhalation 4X/DAY PRN (Reason: sob) Patient Comments: inhale contents of 1 vial ( 3 milliliters ) in nebulizer by mouth... (REFER TO PRESCRIPTION NOTES). liothyronine 25 mcg tablet 25 mcg PO DAILY Patient Comments: TAKE 1 TABLET BY MOUTH ONCE DAILY FOR 90 DAYS Spiriva with HandiHaler 18 mcg capsule, w/inhalation device 18 mcg INHALATION DAILY Patient Comments: INHALE THE CONTENTS OF 1 CAPSULE TWICE EACH TIME VIA HANDIHALER ONCE DAILY cholecalciferol (vitamin D3) 25 mcg (1,000 unit) Capsule 25 mcg PO DAILY omega-3 fatty acids-vitamin E 1,000 mg Capsule 2 cap PO BID PreserVision AREDS [id number] Capsule 1 cap PO BID lisinopril [Zestril] 20 mg tablet 20 mg PO DAILY Hold Instructions: Resume on 03/18/22. carvedilol 6.25 mg tablet 6.25 mg PO BID aspirin 81 mg tablet,chewable 81 mg PO DAILY@0800 metformin 500 mg tablet 500 mg PO BID Patient Comments: take 1 tablet by mouth twice a day glimepiride 2 mg tablet 2 mg PO DAILY Patient Comments: take 1 tablet by mouth once daily WITH FIRST MEAL OF THE DAY Primary Care Provider: Talya Nichols Referrals: Talya Nichols DO [Primary Care Provider] - Disposition Disposition: Acute Care Hospital [facility] What to do if you have Problems For any increased pain, shortness of breath, bleeding, nausea or vomiting, chestpain, or any unexpected problems, contact your Primary Care Provider. Call [facility] ([phone]) or report to the closest Emergency Room. Call 911 if necessary. 11/16/22 1857 <Electronically signed by Lonnie Moreno MD> Cosigner Signature (if applicable): CC: Dr. Talya Nichols, DO ~ Signed [facility] Work Phone: 1([phone]) 486-519603-16-[address] Anders [facility] May 25, 2022 10:49am Note Date/Time May 25, 2022 10: 49am [facility] Medical Records Department [address] [place] [address] Progress Note - Hospitalist 05/25/22 1045 MR#: [id number] Acct: [id number] Name: BEULAH BRIGHT Rep #:[id number] : 1940 81 From: John foster MD PCP: Dr. Talya Nichols, DO Status:ADM PAWEL Location: [place] [address] Subjective Subjective Doing well, says that he is breathing better than when he came in back to his baseline 2 L nasal cannula Objective Data Objective Data Vital Signs: Vital Signs Temp Pulse Resp BP Pulse Ox O2 Del Method O2 Flow Rate 97.8 F 91 18 135/43 H 95 Nasal Cannula 2 05/25/22 04:01 05/25/22 07:12 05/25/22 07:12 05/25/22 04:01 05/25/22 07:12 05/25/22 10:22 05/25/22 10:22 Oxygen Flow Rate (L/min) 2 Oxygen Delivery Method Nasal Cannula Weight: 189 lb 6.033 oz Body Mass Index (BMI) 31.5 Intake & Output: Intake and Output for Last 24 Hours 05/24/22 05/25/22 05/26/22 03:59 03:59 03:59 Intake Total 720 / 720 120 / 120 Output Total 1075 / 1075 300 / 300 Balance -355 / -355 -180 / -180 Lab / Micro Data Result Diagrams: 05/25/22 04:58 05/25/22 04:58 Labs: Laboratory Results - last 24 hr 05/24/22 11:19: WBC 10.4, RBC 3.21 L, Hgb 9.7 L, Hct 30.9 L, MCV 96.3 H, MCH 30.2, MCHC 31.4 L, RDW Std Deviation 45.9 H, RDW Coeff of John 13.3, Plt Count 123 L, MPV 10.8, Immature Gran % (Auto) 0.300, Neut % (Auto) 80.1 H, Lymph % (Auto) 10.9 L, [place] % (Auto) 5.4, Eos % (Auto) 2.9, Baso % (Auto) 0.4, Absolute Neuts (auto) 8.4 H, Absolute Lymphs (auto) 1.14, Nucleated RBC % 0 05/24/22 11:19: Sodium 144, Potassium 4.3, Chloride 106, Carbon Dioxide 32.0, Anion Gap 6, BUN 45 H, Creatinine 1.47 H, Estim Creat Clear Calc 33.70, Est GFR (MDRD) Af Amer 59 L, Est GFR (MDRD) Non-Af 49 L, BUN/Creatinine Ratio 30.6 H, Glucose 178 H, Calcium 9.5, Troponin I High Sens 31 05/24/22 11:19: B-Natriuretic Peptide 200.1 H 05/24/22 14:10: Troponin I High Sens 56 05/24/22 17:50: Troponin I High Sens 94 H 05/24/22 17:55: POC Glucose 148 H 05/24/22 21:09: POC Glucose 210 H 05/24/22 21:52: Troponin I High Sens 106 H 05/25/22 04:58: WBC 11.7 H, RBC 3.00 L, Hgb 9.3 L, Hct 28.7 L, MCV 95.7 H, MCH 31.0, MCHC 32.4, RDW Std Deviation 45.5 H, RDW Coeff of John 13.3, Plt Count 119 L, MPV 10.8, Immature Gran % (Auto) 0.300, Neut % (Auto) 78.7 H, Lymph % (Auto) 12.6 L, [place] % (Auto) 6.4, Eos % (Auto) 1.7, Baso % (Auto) 0.3, Absolute Neuts (auto) 9.2 H, Absolute Lymphs (auto) 1.47, Nucleated RBC % 0 05/25/22 04:58: Sodium 141, Potassium 4.2, Chloride 102, Carbon Dioxide 32.0, Anion Gap 7, BUN 53 H, Creatinine 1.57 H, Estim Creat Clear Calc 31.56, Est GFR (MDRD) Af Amer 55 L, Est GFR (MDRD) Non-Af 45 L, BUN/Creatinine Ratio 33.8 H, Glucose 154 H, Calcium 9.6, Magnesium 1.5 L, Total Bilirubin 1.20 H, AST 15, ALT20, Alkaline Phosphatase 68, Total Protein 6.9, Albumin 2.9 L, Globulin 4.0, Albumin/Globulin Ratio 0.7 L, TSH 2.10 05/25/22 06:21: POC Glucose 144 H Micro: Microbiology 05/24/22 17:45 Mucosa - Nasopharyngeal Respiratory Panel (PCR) - Final 05/24/22 18:45 Nasal Secretion SARS-CoV-2 & FLU Antigen (Rapid) - Final Radiography Diagnostic Testing: Radiology Impression Chest X-Ray 05/24/22 11:55 IMPRESSION: Residual or recurrent pneumonia of the lower lobes of both lungs. Electronically Signed: Yogesh Stokes MD at 12:39 EDT , Physical Exam Narrative General: Alert, Oriented x3, Cooperative, No apparent distress HEENT: Atraumatic, PERRLA, EOMI, Normocephalic Oral: Moist Mucosa Neck: Supple, No JVD Lungs: Diminished, Normal air movement, No rhonchi, No wheeze, No rales Cardiovascular: Regular rate, Regular Rhythm, Normal S1, Normal S2, No murmurs Abdomen: Soft, Non Tender, Non-Distended, No Hepato-splenomegaly Extremities: Edema, Capillary Refill Less than 3 Seconds Skin: No rashes, No breakdown Musculoskeletal: No Tenderness to Palpation of Joints or Extremities Neurological: Cranial nerves II-XII grossly intact, Motor Exam 5/5 strength throughout, Sensory exam intact to light touch and pain Psych/Mental Status: Normal Affect, Appropriate Assessment & Plan Assessment/Plan (1) CHF (congestive heart failure): (2) History of CAD (coronary artery disease): PLAN: Plan 1. Acute on chronic hypoxic respiratory insufficiency secondary to acute exacerbation of heart failure with preserved EF/HTN/HLD/recent non-STEMI ? BNP was mildly elevated to 200 on admission ? He is on 2 L continuous, respiratory status appears improved compared to admission ? We will continue with his IV Lasix, he was recently decreased to every other day dosing given how many frequent admissions he has had I would rather have hiscreatinine to be around 2 and continue with diuresis then decreasing it ? Recent echo with an EF of 65% ? He did have a cardiac cath that showed nonocclusive coronary artery disease ? Viral panels are negative ? Troponins are mildly elevated likely secondary to his heart failure exacerbation 2.? DM 2/CKD 3a ? We will hold his home medications ? Will place him on insulin ? Accu-Cheks ACHS ? We will make adjustments as necessary ? His creatinine is at baseline 5.? Rest of chronic medical conditions including COPD, morbid obesity, complicates patient's overall management and care Patient is not in acute COPD exacerbation DVT: Heparin Charges/Coding Visit Charges Inpatient E&M: 54861 Subs Hosp L2 05/25/22 1049 <Electronically signed by John Anders MD> Cosigner Signature (if applicable): CC: ~ Signed [facility] Work Phone: 1(262) 292-242703-15-2023 History and physical note Author Dr. Pardo [facility] May 24, 2022 4:24pm Note Date/Time May 24, 2022 4:1 5pm [facility] Medical Records Department [address] [place] [id number] H&P Exam - Hospitalist 05/24/22 1559 MR#: [id number] Acct: [id number] Name: BEULAH BRIGHT Rep #:[id number] : 1940 81 From: Jennifer Pardo MD PCP: Dr. Talya Nichols, DO Status:ADM PAWEL Location: [place] [address] HPI - General General Date of Admission: 05/24/22 Date of Service: 05/24/22 Chief Complaint: SOB HPI Narrative BEULAH BRIGHT, is a 81 M with a history of heart failure, COPD on 2 L home O2,coronary artery disease, and hypertension who presented to [facility] 05/24/2022 with shortness of breath for several hours. He had been taking his friend to the dentist and he was sitting in his car on his 2 L of O2 and then progressively became more short of breath and increased his O2 and called EMS. He presented to the ED and was noted to have what appeared to be some edema on his chest x-ray, BNP mildly elevated but does have signs and symptoms of congestive heart failure with a noted recent decrease in his Lasix dose. In the ED had hemoglobin of 9.7, BUN 45 with a creatinine of 1.47, troponin of 31 that increased to 56 though technically both were considered within normal limits based on the reference range, and BNP 200 with variable BNP's in the past. Given 1 dose of IV Lasix in the ED. Heart rate 90s, tachypneic from 20s to 30s, 96% on 2 L. And variable blood pressure from systolic of 193-146. Hospitalist consulted for admission. Patient reports thatsince he was taken off of his hydrochlorothiazide due to gout 3 to 4 months ago he has had increasing shortness of breath that did worsen today when he was in the car and did not respond to increasing oxygen, reportedly had recently decreased his Lasix by his PCP. Is also had some phlegm with cough for the past1.5 weeks but did not have the significant increase shortness of breath until today. Reports this is similar to other CHF exacerbations he has had. Was given IV Lasix in the ED and reports he is already starting to feel better now that he has been off. Did not have any other significant complaints, denied swelling in his extremities. [facility] Medical History Acute exacerbation of CHF (congestive heart failure) Aortic valve stenosis, acquired Atherosclerotic heart disease of [place] coronary artery without angina pectoris CAD (coronary artery disease) Chronic respiratory failure with hypoxia COPD (chronic obstructive pulmonary disease) Debility Diabetes mellitus, type 2 Former tobacco use History of left heart catheterization (LHC) (~03/15/22) HLD (hyperlipidemia) HTN (hypertension) Hypothyroidism Mild left ventricular hypertrophy Nonrheumatic aortic (valve) stenosis Obesity Polyarthralgia Home Medications atorvastatin 80 mg tablet 80 mg PO DAILY CHOLESTEROL 05/02/21 [History Last Taken 05/23/22] cholecalciferol (vitamin D3) 25 mcg (1,000 unit) capsule 25 mcg PO DAILY iaxirtb48/21/22 [History Last Taken 05/24/22] ipratropium 0.5 mg-albuterol 3 mg (2.5 mg base)/3 mL nebulization soln 3 ml inhalation 4X/DAY PRN sob 05/02/21 [History Last Taken 05/23/22] liothyronine 25 mcg tablet 25 mcg PO DAILY THYROID 05/02/21 [History Last Taken 05/24/22] omega-3 fatty acids-vitamin E 1,000 mg capsule 2 cap PO BID SUPPLEMENT 05/02/21 [History Last Taken 05/24/22] tiotropium bromide 18 mcg capsule with inhalation device (Spiriva with HandiHaler) 18 mcg inhalation DAILY SOB 05/02/21 [History Last Taken 05/24/22] vitamins A,C,R-yvhz-ynugqz 4,296 mcg-226 mg-90 mg capsule (PreserVision AREDS) 1cap PO BID vitamin 12/13/21 [History Last Taken 05/24/22] lisinopril 20 mg tablet (Zestril) 20 mg PO DAILY blood pressure 03/12/22 [History Last Taken 05/24/22] aspirin 81 mg chewable tablet 81 mg PO DAILY@0800 anticoagulant 04/12/22 [History Last Taken 05/24/22] carvedilol 6.25 mg tablet 6.25 mg PO BID blood pressure 04/12/22 [History Last Taken 05/24/22] amlodipine 5 mg tablet 5 mg PO DAILY #90 tabs 05/02/22 [Rx Last Taken 05/24/22] furosemide 40 mg tablet (Lasix) 20 mg PO DAILY 05/24/22 [History Last Taken 05/24/22] glimepiride 2 mg tablet 2 mg PO DAILY DM 05/24/22 [History Last Taken 05/24/22] metformin 500 mg tablet 500 mg PO BID DM 05/24/22 [History Last Taken 05/24/22] Allergy/AdvReac Type Severity Reaction Status Date / Time codeine AdvReac Upset Verified 05/24/22 11:08 Stomach Family History Mother CVA (cerebral vascular accident) Heart disease Myocardial infarction Hx of CABG Hypertension Father CVA (cerebral vascular accident) Heart disease Surgical History S/P cataract extraction Social History household members: none housing: house Smoking Status: Former smoker how long ago did patient quit smoking: Quit 2011, prior 1 ppd since teen. alcohol intake: former year quit: 2010 substance use type: does not use ROS ROS Narrative General: Denies fever/chills HENT: Denies headache, slight nasal congestion, denies sore throat EYES: Denies changes in vision Resp: Some cough for a week and a half, shortness of breath Cardiac: Denies chest pain GI: Denies abdominal pain, denies changes in bowel, denies nausea/vomiting : Denies changes in urination Extremity: Denies swelling MSK: Denies weakness Neuro: Denies any numbness/tingling Heme: Denies any bleeding or bruising Skin: Denies rashes Psychiatric: No complaints voiced Vital Signs Vital Signs Vital Signs: 05/24/22 11:08 05/24/22 11:14 05/24/22 11:16 Temperature 99.6 F H Temperature Source Temporal Pulse Rate 105 H 106 H Respiratory Rate 36 H 36 H Respiratory Effort Short of Breath Labored Respiratory Pattern Tachypnea Blood Pressure 193/64 H Blood Pressure Mean 107 Pulse Ox 100 99 Oxygen Delivery Method Nasal Cannula Nasal Cannula Oxygen Flow Rate (L/min) 4 3 05/24/22 12:22 05/24/22 13:01 05/24/22 14:05 Temperature Temperature Source Pulse Rate 101 H 100 97 Respiratory Rate 28 H 26 H 26 H Respiratory Effort Respiratory Pattern Blood Pressure 146/81 H 148/61 H 175/60 H Blood Pressure Mean 102 90 98 Pulse Ox 96 96 99 Oxygen Delivery Method Nasal Cannula Room Air Nasal Cannula Oxygen Flow Rate (L/min) 3 3 05/24/22 15:22 05/24/22 15:22 Temperature Temperature Source Pulse Rate 92 93 Respiratory Rate 28 H 28 H Respiratory Effort Respiratory Pattern Blood Pressure 184/53 H 184/53 H Blood Pressure Mean 96 96 Pulse Ox 96 96 Oxygen Delivery Method Nasal Cannula Nasal Cannula Oxygen Flow Rate (L/min) 2 3 Weight Weight: 90.265 kg Body Mass Index (BMI) 33.1 Physical Exam Narrative General: Alert, oriented HEENT: Atraumatic, normocephalic Eyes: Anicteric, normal conjunctiva, extraocular movements grossly intact Neck: Supple Respiratory: Diminished at the sounds, somewhat tachypneic, conversationally dyspneic Cardiovascular: Regular rate and rhythm GI: Soft, nontender, nondistended Extremities: No edema, but has compression stockings on Musculoskeletal: Moving all extremities Neuro: No overt focal neurological deficits Skin: No rashes appreciated Psych: Cooperative Results Lab / Micro Data Result Diagrams: 05/24/22 11:19 05/24/22 11:19 Labs: Laboratory Results - last 24 hr 05/24/22 11:19: WBC 10.4, RBC 3.21 L, Hgb 9.7 L, Hct 30.9 L, MCV 96.3 H, MCH 30.2, MCHC 31.4 L, RDW Std Deviation 45.9 H, RDW Coeff of John 13.3, Plt Count 123 L, MPV 10.8, Immature Gran % (Auto) 0.300, Neut % (Auto) 80.1 H, Lymph % (Auto) 10.9 L, [place] % (Auto) 5.4, Eos % (Auto) 2.9, Baso % (Auto) 0.4, Absolute Neuts (auto) 8.4 H, Absolute Lymphs (auto) 1.14, Nucleated RBC % 0 05/24/22 11:19: Sodium 144, Potassium 4.3, Chloride 106, Carbon Dioxide 32.0, Anion Gap 6, BUN 45 H, Creatinine 1.47 H, Estim Creat Clear Calc 33.70, Est GFR (MDRD) Af Amer 59 L, Est GFR (MDRD) Non-Af 49 L, BUN/Creatinine Ratio 30.6 H, Glucose 178 H, Calcium 9.5, Troponin I High Sens 31 05/24/22 11:19: B-Natriuretic Peptide 200.1 H 05/24/22 14:10: Troponin I High Sens 56 Radiology Impression Chest X-Ray 05/24/22 11:55 IMPRESSION: Residual or recurrent pneumonia of the lower lobes of both lungs. Electronically Signed: Yogesh Stokes MD at 12:39 EDT , Assessment & Plan Assessment/Plan (1) CHF (congestive heart failure): (2) History of CAD (coronary artery disease): PLAN: Plan #Acute exacerbation of chronic heart failure -BNP mildly elevated at 200 but chest x-ray suggestive of edema and had recent decrease in Lasix dose - milligram another 40 IV Lasix and then 40 IV Lasix daily -Daily weights, I's and O's -Echo 03/13/2022 with an EF of 65%, RVSP unable to estimate and diastolic dysfunction indeterminate but has documented heart failure, suspect diastolic. Given recent echocardiogram will not repeat -Fluid restriction #Chronic hypoxic respiratory failure secondary to COPD on 2 L home O2 -Will give nebs and as needed albuterol -We will check COVID and respiratory panel given significant wheezing and could have mixed picture as he has had increasing cough with some phlegm for 1 and half weeks, will start Mucinex -Incentive spirometry #Hypertension -Continue home beta-greta, lisinopril, amlodipine #Type 2 diabetes mellitus -Hold oral hypoglycemics -Sliding scale and glucose checks #CKD stage IIIb -Appears to be roughly baseline -Avoid nephrotoxic agents #History of coronary artery disease -Recent left heart cath 03/15/2022 with no new intervention -Continue aspirin and statin until beta-greta #Rising troponin -First troponin 31 with second 56, EKG with QTc 423 and normal sinus rhythm, ST nonspecific but no chest pain -Do not suspect ACS, will check another troponin to verify it levels off though if NSTEMI would highly suspect type II #DVT ppx: Heparin subcu Jennifer Pardo MD Time spent in the patient's overall evaluation,decision-making process, review of diagnostic data, adjustment of management, discussion with other providers, nursing nursing and ancillary staff involved in patient's care documentation, 60minutes Charges/Coding Visit Charges Inpatient E&M: 05904 Init Hosp L2 05/24/22 1624 <Electronically signed by Jennifer Pardo MD> Cosigner Signature (if applicable): CC: Dr. Talya Nichols, DO; Dr. Jennifer Pardo MD~ Signed [facility] Work Phone: 1(678) 902-270803-15-[address] Edward [facility] May 24, 2022 3:51pm Note Date/Time May 24, 2022 11: 55am [facility] Medical Records Department [address] [place] [address] Emergency Department Summary 05/24/22 MR#: [id number] Acct: [id number] Name: BEULAH BRIGHT Rep #:[id number] : 1940 81 From: Yumiko Edward MD PCP: Dr. Tlaya Nichols, DO Status:ADM PAWEL Location: [place] [address] HPI History of Present Illness Chief Complaint: Shortness of Breath Informant: patient Onset/Context/Timing Onset: Today Narrative Narrative: Patient presents via EMS secondary to shortness of breath. He wears 2 L of oxygen all the time. He drove a friend to the dentist this morning and was waiting in the car. He rather abruptly became short of breath. He turned his oxygen up but did not note any improvement. There is some question as to whether the oxygen tubing may have been kinked. He called 911 and EMS placed him on a nonrebreather. At this time he reports some improvement but not back to baseline. He denies any chest pain. [facility] Medical History Acute exacerbation of CHF (congestive heart failure) Aortic valve stenosis, acquired Atherosclerotic heart disease of [place] coronary artery without angina pectoris CAD (coronary artery disease) Chronic respiratory failure with hypoxia COPD (chronic obstructive pulmonary disease) Debility Diabetes mellitus, type 2 Former tobacco use History of left heart catheterization (LHC) (~03/15/22) HLD (hyperlipidemia) HTN (hypertension) Hypothyroidism Mild left ventricular hypertrophy Nonrheumatic aortic (valve) stenosis Obesity Polyarthralgia Home Medications atorvastatin 80 mg tablet 80 mg PO DAILY CHOLESTEROL 05/02/21 [History Last Taken 04/11/22] cholecalciferol (vitamin D3) 25 mcg (1,000 unit) capsule 25 mcg PO DAILY ezeluiu08/21/22 [History Last Taken 04/11/22] glimepiride 4 mg tablet 2 mg PO DAILY diabetes 05/02/21 [History Last Taken 04/11/22] ipratropium 0.5 mg-albuterol 3 mg (2.5 mg base)/3 mL nebulization soln 3 ml inhalation 4X/DAY PRN sob 05/02/21 [History Last Taken 3 Days Ago ~12/10/21] liothyronine 25 mcg tablet 25 mcg PO DAILY THYROID 05/02/21 [History Last Taken 12/13/21] metformin 1,000 mg tablet 500 mg PO BID DM 05/02/21 [History Last Taken 04/11/22] omega-3 fatty acids-vitamin E 1,000 mg capsule 2 cap PO BID SUPPLEMENT 05/02/21 [History Last Taken 04/11/22] tiotropium bromide 18 mcg capsule with inhalation device (Spiriva with HandiHaler) 18 mcg inhalation DAILY SOB 05/02/21 [History Last Taken 04/11/22] vitamins A,C,N-wbby-tsfyth 4,296 mcg-226 mg-90 mg capsule (PreserVision AREDS) 1cap PO BID vitamin 12/13/21 [History Last Taken 04/11/22] lisinopril 20 mg tablet (Zestril) 20 mg PO DAILY blood pressure 03/12/22 [History Last Taken Unknown] aspirin 81 mg chewable tablet 81 mg PO DAILY@0800 anticoagulant 04/12/22 [History Last Taken 04/11/22] carvedilol 6.25 mg tablet 6.25 mg PO DAILY blood pressure 04/12/22 [History Last Taken Unknown] amlodipine 5 mg tablet 5 mg PO DAILY #90 tabs 05/02/22 [Rx Last Taken Unknown] furosemide 40 mg tablet (Lasix) 20 mg PO DAILY 05/24/22 [History Last Taken Unknown] Allergy/AdvReac Type Severity Reaction Status Date / Time codeine AdvReac Upset Verified 05/24/22 11:08 Stomach Family History Mother CVA (cerebral vascular accident) Heart disease Myocardial infarction Hx of CABG Hypertension Father CVA (cerebral vascular accident) Heart disease Surgical History S/P cataract extraction Social History household members: none housing: house Smoking Status: Former smoker how long ago did patient quit smoking: Quit 2010, prior 1 ppd since teen. alcohol intake: former year quit: 2010 substance use type: does not use ROS ROS ED Constitutional Constitutional ED: Denies chills or fever(s) Eyes Eyes: Denies change in vision or discharge from eye(s) ENT ENT ED: Denies discharge from eye(s), rhinorrhea or sore throat Cardiovascular Cardiovascular: Denies chest pain or palpitations Respiratory/Chest Respiratory/Chest: Reports dyspnea; Denies cough Gastrointestinal Gastrointestinal: Denies abdominal pain, nausea or vomiting Genitourinary Genitourinary ED: Denies dysuria Musculoskeletal Musculoskeletal: Denies back pain or extremity pain Integumentary Denies Abrasions or rash Neurologic Neurologic: Denies headache(s) or weakness Psychiatric Psychiatric: Denies anxiety or depression Allergic/Immunologic Allergic/Immunologic ED: Denies lip swelling or urticaria EXAM Physical Exam Const Vital Signs: 05/24/22 11:08 05/24/22 11:14 05/24/22 11:16 Temperature 99.6 F H Temperature Source Temporal Pulse Rate 105 H 106 H Respiratory Rate 36 H 36 H Respiratory Effort Short of Breath Labored Respiratory Pattern Tachypnea Blood Pressure 193/64 H Blood Pressure Mean 107 Pulse Ox 100 99 Oxygen Delivery Method Nasal Cannula Nasal Cannula Oxygen Flow Rate (L/min) 4 3 05/24/22 12:22 05/24/22 13:01 05/24/22 14:05 Temperature Temperature Source Pulse Rate 101 H 100 97 Respiratory Rate 28 H 26 H 26 H Respiratory Effort Respiratory Pattern Blood Pressure 146/81 H 148/61 H 175/60 H Blood Pressure Mean 102 90 98 Pulse Ox 96 96 99 Oxygen Delivery Method Nasal Cannula Room Air Nasal Cannula Oxygen Flow Rate (L/min) 3 3 Positive well nourished and well developed General Appearance ED: well developed HEENT Reports normocephalic and head/scalp atraumatic Eyes PERRL and EOMs intact bilaterally Neck supple Chest Wall inspection of chest normal and palpation of chest normal Resp Resp Narrative: Patient mildly tachypneic with respiratory rate of 24 at the time of my exam. Lung sounds diminished at the bases. Cardio regular rhythm Rate: tachycardic GI normal to inspection, nondistended, normoactive bowel sounds Palpation: soft Extremity normal to inspection Neuro oriented x3 Neuro Narrative: No focal neurologic deficit. Sensorium / Orientation: alert Psych mental status grossly normal Skin no rashes or lesions noted MDM MDM MDM Narrative Medical decision making narrative: Patient placed on security monitor. EKG obtained to evaluate for cardiac arrhythmia/ischemia. Chest x-ray obtained to evaluate for acute lung pathology, cardiac size, or mediastinal abnormality. Labwork obtained to evaluate for leukocytosis, anemia, and electrolyte derangement. Troponin obtained to evaluate for cardiac ischemia. BNP ordered to evaluate for congentive heart failure. History & Record Review Discussion w/independent historian: EMS personnel Additional record(s) reviewed:: Prior inpatient record, Prior outpatient record,Prior ED visit and Prior labs Lab Data Attestation: I reviewed the patient's lab results. Labs: Laboratory Results - last 24 hr 05/24/22 05/24/22 05/24/22 11:19 11:19 11:19 WBC 10.4 RBC 3.21 L Hgb 9.7 L Hct 30.9 L MCV 96.3 H MCH 30.2 MCHC 31.4 L RDW Std Deviation 45.9 H RDW Coeff of John 13.3 Plt Count 123 L MPV 10.8 Immature Gran % (Auto) 0.300 Neut % (Auto) 80.1 H Lymph % (Auto) 10.9 L [place] % (Auto) 5.4 Eos % (Auto) 2.9 Baso % (Auto) 0.4 Absolute Neuts (auto) 8.4 H Absolute Lymphs (auto) 1.14 Nucleated RBC % 0 Sodium 144 Potassium 4.3 Chloride 106 Carbon Dioxide 32.0 Anion Gap 6 BUN 45 H Creatinine 1.47 H Estim Creat Clear Calc 33.70 Est GFR (MDRD) Af Amer 59 L Est GFR (MDRD) Non-Af 49 L BUN/Creatinine Ratio 30.6 H Glucose 178 H Calcium 9.5 Troponin I High Sens 31 B-Natriuretic Peptide 200.1 H 05/24/22 14:10 WBC RBC Hgb Hct MCV MCH MCHC RDW Std Deviation RDW Coeff of John Plt Count MPV Immature Gran % (Auto) Neut % (Auto) Lymph % (Auto) [place] % (Auto) Eos % (Auto) Baso % (Auto) Absolute Neuts (auto) Absolute Lymphs (auto) Nucleated RBC % Sodium Potassium Chloride Carbon Dioxide Anion Gap BUN Creatinine Estim Creat Clear Calc Est GFR (MDRD) Af Amer Est GFR (MDRD) Non-Af BUN/Creatinine Ratio Glucose Calcium Troponin I High Sens 56 B-Natriuretic Peptide Radiography Chest X-Ray - ED: 1 View, Read by ED Physician and - (Chronic changes bilateral bases concerning for pulmonary edema. Similar appearance to prior chest x-ray.) Diagnostic Testing: Clinical Impression(s) from Imaging Studies Chest X-Ray 05/24/22 11:55 IMPRESSION: Residual or recurrent pneumonia of the lower lobes of both lungs. Electronically Signed: Yogesh Stokes MD at 12:39 EDT , EKG Initial EKG: Attestation: I personally reviewed and interpreted this EKG as follows: Interpretation: Sinus Rhythm (Sinus at [address] changes. No evidence of acute ischemia.) Management Discussion w/another healthcare provider: Hospitalist Treatment and Re-Evaluation :: CBC reveals normal white count. Hemoglobin 9.7, slightly down from his most recent labs, however. Chemistry studies reveal a BUN of 45 and creatinine 1.47. Again this is near his baseline. Initial troponin is 31 and 2-hour repeat troponin is 56. While patient's troponin did rise 25 points both values are still within normal limits. His BNP is 200. Chest x-ray per my interpretation appears to show chronic changes with bilateral mild pulmonary edema. This does appear consistent with his last chest x-ray. Radiology interpretation is reviewed. Patient has no sign of pneumonia with no significant cough, fever, orwhite count. I did review patient's prior cardiac records and he had a cardiac catheterization in March of this year that did not show significant disease. On repeat evaluation patient remains tachypneic with respiratory rate around 30 at this time. He does have conversational dyspnea. Given this I will give him 40 mg of IV Lasix and speak with hospitalist regarding admission. Patient states that there has been some debate between his lpn rn hospice and primary carephysician about how much Lasix he is supposed to be on. His lpn rn hospice wantedhim on 40 mg daily, however his primary care physician stated that this caused worse renal function and for the past week he is only been taking 20 mg a day. I believe this is likely what led to the patient's dyspnea and fluid overload. Discharge Plan Triage Chief Complaint: Shortness of Breath ED Provider: Yumiko Edward Dx/Rx/DC Orders Clinical Impression: CHF (congestive heart failure) Prescriptions: No Action amlodipine 5 mg tablet 5 mg PO DAILY Qty: 90 3RF atorvastatin 80 mg tablet 80 mg PO DAILY Label Comments: TAKE 1 TABLET BY MOUTH ONCE DAILY ipratropium-albuterol 0.5 mg-3 mg(2.5 mg base)/3 mL solution for nebulization 3 ml inhalation 4X/DAY PRN (Reason: sob) Label Comments: inhale contents of 1 vial ( 3 milliliters ) in nebulizer by mouth... (REFER TO PRESCRIPTION NOTES). liothyronine 25 mcg tablet 25 mcg PO DAILY Label Comments: TAKE 1 TABLET BY MOUTH ONCE DAILY FOR 90 DAYS metformin 1,000 mg tablet 500 mg PO BID glimepiride 4 mg tablet 2 mg PO DAILY Label Comments: TAKE 1 TABLET BY MOUTH ONCE DAILY Spiriva with HandiHaler 18 mcg capsule, w/inhalation device 18 mcg INHALATION DAILY Label Comments: INHALE THE CONTENTS OF 1 CAPSULE TWICE EACH TIME VIA HANDIHALER ONCE DAILY cholecalciferol (vitamin D3) 25 mcg (1,000 unit) Capsule 25 mcg PO DAILY omega-3 fatty acids-vitamin E 1,000 mg Capsule 2 cap PO BID PreserVision AREDS [id number] [id number] Capsule 1 cap PO BID lisinopril [Zestril] 20 mg tablet 20 mg PO DAILY Hold Instructions: Resume on 03/18/22. carvedilol 6.25 mg tablet 6.25 mg PO DAILY aspirin 81 mg tablet,chewable 81 mg PO DAILY@0800 furosemide [Lasix] 40 mg tablet 20 mg PO DAILY Primary Care Provider: Talya Nichols Referrals: Talya Nichols DO [Primary Care Provider] - Disposition Disposition: Acute Care Hospital [facility] What to do if you have Problems For any increased pain, shortness of breath, bleeding, nausea or vomiting, chestpain, or any unexpected problems, contact your Primary Care Provider. Call [facility] ([phone]) or report to the closest Emergency Room. Call 911 if necessary. 05/24/22 [id number] <Electronically signed by Yumiko Edward MD> Cosigner Signature (if applicable): CC: Dr. Talya Nichols DO ~ Signed [facility] Work Phone: 1(180) 425-983903-15-[address] Edward [facility] May 24, 2022 3:51pm Note Date/Time May 24, 2022 11: 55am [facility] Medical Records Department [address] [place] [address] Emergency Department Summary 05/24/22 MR#: [id number] Acct: [id number] Name: BEULAH BRIGHT Rep #:[id number] : 1940 81 From: Yumiko Edward MD PCP: Dr. Talya Nichols, DO Status:ADM PAWEL Location: [place] [address] HPI History of Present Illness Chief Complaint: Shortness of Breath Informant: patient Onset/Context/Timing Onset: Today Narrative Narrative: Patient presents via EMS secondary to shortness of breath. He wears 2 L of oxygen all the time. He drove a friend to the dentist this morning and was waiting in the car. He rather abruptly became short of breath. He turned his oxygen up but did not note any improvement. There is some question as to whether the oxygen tubing may have been kinked. He called 911 and EMS placed him on a nonrebreather. At this time he reports some improvement but not back to baseline. He denies any chest pain. [facility] Medical History Acute exacerbation of CHF (congestive heart failure) Aortic valve stenosis, acquired Atherosclerotic heart disease of [place] coronary artery without angina pectoris CAD (coronary artery disease) Chronic respiratory failure with hypoxia COPD (chronic obstructive pulmonary disease) Debility Diabetes mellitus, type 2 Former tobacco use History of left heart catheterization (LHC) (~03/15/22) HLD (hyperlipidemia) HTN (hypertension) Hypothyroidism Mild left ventricular hypertrophy Nonrheumatic aortic (valve) stenosis Obesity Polyarthralgia Home Medications atorvastatin 80 mg tablet 80 mg PO DAILY CHOLESTEROL 05/02/21 [History Last Taken 04/11/22] cholecalciferol (vitamin D3) 25 mcg (1,000 unit) capsule 25 mcg PO DAILY icktdgw97/21/22 [History Last Taken 04/11/22] glimepiride 4 mg tablet 2 mg PO DAILY diabetes 05/02/21 [History Last Taken 04/11/22] ipratropium 0.5 mg-albuterol 3 mg (2.5 mg base)/3 mL nebulization soln 3 ml inhalation 4X/DAY PRN sob 05/02/21 [History Last Taken 3 Days Ago ~12/10/21] liothyronine 25 mcg tablet 25 mcg PO DAILY THYROID 05/02/21 [History Last Taken 12/13/21] metformin 1,000 mg tablet 500 mg PO BID DM 05/02/21 [History Last Taken 04/11/22] omega-3 fatty acids-vitamin E 1,000 mg capsule 2 cap PO BID SUPPLEMENT 05/02/21 [History Last Taken 04/11/22] tiotropium bromide 18 mcg capsule with inhalation device (Spiriva with HandiHaler) 18 mcg inhalation DAILY SOB 05/02/21 [History Last Taken 04/11/22] vitamins A,C,Z-jfwj-wepjay 4,296 mcg-226 mg-90 mg capsule (PreserVision AREDS) 1cap PO BID vitamin 12/13/21 [History Last Taken 04/11/22] lisinopril 20 mg tablet (Zestril) 20 mg PO DAILY blood pressure 03/12/22 [History Last Taken Unknown] aspirin 81 mg chewable tablet 81 mg PO DAILY@0800 anticoagulant 04/12/22 [History Last Taken 04/11/22] carvedilol 6.25 mg tablet 6.25 mg PO DAILY blood pressure 04/12/22 [History Last Taken Unknown] amlodipine 5 mg tablet 5 mg PO DAILY #90 tabs 05/02/22 [Rx Last Taken Unknown] furosemide 40 mg tablet (Lasix) 20 mg PO DAILY 05/24/22 [History Last Taken Unknown] Allergy/AdvReac Type Severity Reaction Status Date / Time codeine AdvReac Upset Verified 05/24/22 11:08 Stomach Family History Mother CVA (cerebral vascular accident) Heart disease Myocardial infarction Hx of CABG Hypertension Father CVA (cerebral vascular accident) Heart disease Surgical History S/P cataract extraction Social History household members: none housing: house Smoking Status: Former smoker how long ago did patient quit smoking: Quit 2011, prior 1 ppd since teen. alcohol intake: former year quit: 2010 substance use type: does not use ROS ROS ED Constitutional Constitutional ED: Denies chills or fever(s) Eyes Eyes: Denies change in vision or discharge from eye(s) ENT ENT ED: Denies discharge from eye(s), rhinorrhea or sore throat Cardiovascular Cardiovascular: Denies chest pain or palpitations Respiratory/Chest Respiratory/Chest: Reports dyspnea; Denies cough Gastrointestinal Gastrointestinal: Denies abdominal pain, nausea or vomiting Genitourinary Genitourinary ED: Denies dysuria Musculoskeletal Musculoskeletal: Denies back pain or extremity pain Integumentary Denies Abrasions or rash Neurologic Neurologic: Denies headache(s) or weakness Psychiatric Psychiatric: Denies anxiety or depression Allergic/Immunologic Allergic/Immunologic ED: Denies lip swelling or urticaria EXAM Physical Exam Const Vital Signs: 05/24/22 11:08 05/24/22 11:14 05/24/22 11:16 Temperature 99.6 F H Temperature Source Temporal Pulse Rate 105 H 106 H Respiratory Rate 36 H 36 H Respiratory Effort Short of Breath Labored Respiratory Pattern Tachypnea Blood Pressure 193/64 H Blood Pressure Mean 107 Pulse Ox 100 99 Oxygen Delivery Method Nasal Cannula Nasal Cannula Oxygen Flow Rate (L/min) 4 3 05/24/22 12:22 05/24/22 13:01 05/24/22 14:05 Temperature Temperature Source Pulse Rate 101 H 100 97 Respiratory Rate 28 H 26 H 26 H Respiratory Effort Respiratory Pattern Blood Pressure 146/81 H 148/61 H 175/60 H Blood Pressure Mean 102 90 98 Pulse Ox 96 96 99 Oxygen Delivery Method Nasal Cannula Room Air Nasal Cannula Oxygen Flow Rate (L/min) 3 3 Positive well nourished and well developed General Appearance ED: well developed HEENT Reports normocephalic and head/scalp atraumatic Eyes PERRL and EOMs intact bilaterally Neck supple Chest Wall inspection of chest normal and palpation of chest normal Resp Resp Narrative: Patient mildly tachypneic with respiratory rate of 24 at the time of my exam. Lung sounds diminished at the bases. Cardio regular rhythm Rate: tachycardic GI normal to inspection, nondistended, normoactive bowel sounds Palpation: soft Extremity normal to inspection Neuro oriented x3 Neuro Narrative: No focal neurologic deficit. Sensorium / Orientation: alert Psych mental status grossly normal Skin no rashes or lesions noted MDM MDM MDM Narrative Medical decision making narrative: Patient placed on security monitor. EKG obtained to evaluate for cardiac arrhythmia/ischemia. Chest x-ray obtained to evaluate for acute lung pathology, cardiac size, or mediastinal abnormality. Labwork obtained to evaluate for leukocytosis, anemia, and electrolyte derangement. Troponin obtained to evaluate for cardiac ischemia. BNP ordered to evaluate for congentive heart failure. History & Record Review Discussion w/independent historian: EMS personnel Additional record(s) reviewed:: Prior inpatient record, Prior outpatient record,Prior ED visit and Prior labs Lab Data Attestation: I reviewed the patient's lab results. Labs: Laboratory Results - last 24 hr 05/24/22 05/24/22 05/24/22 11:19 11:19 11:19 WBC 10.4 RBC 3.21 L Hgb 9.7 L Hct 30.9 L MCV 96.3 H MCH 30.2 MCHC 31.4 L RDW Std Deviation 45.9 H RDW Coeff of John 13.3 Plt Count 123 L MPV 10.8 Immature Gran % (Auto) 0.300 Neut % (Auto) 80.1 H Lymph % (Auto) 10.9 L [place] % (Auto) 5.4 Eos % (Auto) 2.9 Baso % (Auto) 0.4 Absolute Neuts (auto) 8.4 H Absolute Lymphs (auto) 1.14 Nucleated RBC % 0 Sodium 144 Potassium 4.3 Chloride 106 Carbon Dioxide 32.0 Anion Gap 6 BUN 45 H Creatinine 1.47 H Estim Creat Clear Calc 33.70 Est GFR (MDRD) Af Amer 59 L Est GFR (MDRD) Non-Af 49 L BUN/Creatinine Ratio 30.6 H Glucose 178 H Calcium 9.5 Troponin I High Sens 31 B-Natriuretic Peptide 200.1 H 05/24/22 14:10 WBC RBC Hgb Hct MCV MCH MCHC RDW Std Deviation RDW Coeff of John Plt Count MPV Immature Gran % (Auto) Neut % (Auto) Lymph % (Auto) [place] % (Auto) Eos % (Auto) Baso % (Auto) Absolute Neuts (auto) Absolute Lymphs (auto) Nucleated RBC % Sodium Potassium Chloride Carbon Dioxide Anion Gap BUN Creatinine Estim Creat Clear Calc Est GFR (MDRD) Af Amer Est GFR (MDRD) Non-Af BUN/Creatinine Ratio Glucose Calcium Troponin I High Sens 56 B-Natriuretic Peptide Radiography Chest X-Ray - ED: 1 View, Read by ED Physician and - (Chronic changes bilateral bases concerning for pulmonary edema. Similar appearance to prior chest x-ray.) Diagnostic Testing: Clinical Impression(s) from Imaging Studies Chest X-Ray 05/24/22 11:55 IMPRESSION: Residual or recurrent pneumonia of the lower lobes of both lungs. Electronically Signed: Yogesh Stokes MD at 12:39 EDT , EKG Initial EKG: Attestation: I personally reviewed and interpreted this EKG as follows: Interpretation: Sinus Rhythm (Sinus at [address] changes. No evidence of acute ischemia.) Management Discussion w/another healthcare provider: Hospitalist Treatment and Re-Evaluation :: CBC reveals normal white count. Hemoglobin 9.7, slightly down from his most recent labs, however. Chemistry studies reveal a BUN of 45 and creatinine 1.47. Again this is near his baseline. Initial troponin is 31 and 2-hour repeat troponin is 56. While patient's troponin did rise 25 points both values are still within normal limits. His BNP is 200. Chest x-ray per my interpretation appears to show chronic changes with bilateral mild pulmonary edema. This does appear consistent with his last chest x-ray. Radiology interpretation is reviewed. Patient has no sign of pneumonia with no significant cough, fever, orwhite count. I did review patient's prior cardiac records and he had a cardiac catheterization in March of this year that did not show significant disease. On repeat evaluation patient remains tachypneic with respiratory rate around 30 at this time. He does have conversational dyspnea. Given this I will give him 40 mg of IV Lasix and speak with hospitalist regarding admission. Patient states that there has been some debate between his lpn rn hospice and primary carephysician about how much Lasix he is supposed to be on. His lpn rn hospice wantedhim on 40 mg daily, however his primary care physician stated that this caused worse renal function and for the past week he is only been taking 20 mg a day. I believe this is likely what led to the patient's dyspnea and fluid overload. Discharge Plan Triage Chief Complaint: Shortness of Breath ED Provider: Yumiko Edward Dx/Rx/DC Orders Clinical Impression: CHF (congestive heart failure) Prescriptions: No Action amlodipine 5 mg tablet 5 mg PO DAILY Qty: 90 3RF atorvastatin 80 mg tablet 80 mg PO DAILY Label Comments: TAKE 1 TABLET BY MOUTH ONCE DAILY ipratropium-albuterol 0.5 mg-3 mg(2.5 mg base)/3 mL solution for nebulization 3 ml inhalation 4X/DAY PRN (Reason: sob) Label Comments: inhale contents of 1 vial ( 3 milliliters ) in nebulizer by mouth... (REFER TO PRESCRIPTION NOTES). liothyronine 25 mcg tablet 25 mcg PO DAILY Label Comments: TAKE 1 TABLET BY MOUTH ONCE DAILY FOR 90 DAYS metformin 1,000 mg tablet 500 mg PO BID glimepiride 4 mg tablet 2 mg PO DAILY Label Comments: TAKE 1 TABLET BY MOUTH ONCE DAILY Spiriva with HandiHaler 18 mcg capsule, w/inhalation device 18 mcg INHALATION DAILY Label Comments: INHALE THE CONTENTS OF 1 CAPSULE TWICE EACH TIME VIA HANDIHALER ONCE DAILY cholecalciferol (vitamin D3) 25 mcg (1,000 unit) Capsule 25 mcg PO DAILY omega-3 fatty acids-vitamin E 1,000 mg Capsule 2 cap PO BID PreserVision AREDS 14,320-226-200 [id number] Capsule 1 cap PO BID lisinopril [Zestril] 20 mg tablet 20 mg PO DAILY Hold Instructions: Resume on 03/18/22. carvedilol 6.25 mg tablet 6.25 mg PO DAILY aspirin 81 mg tablet,chewable 81 mg PO DAILY@0800 furosemide [Lasix] 40 mg tablet 20 mg PO DAILY Primary Care Provider: Talya Nichols Referrals: Talya Nichols DO [Primary Care Provider] - Disposition Disposition: Acute Care Hospital [facility] What to do if you have Problems For any increased pain, shortness of breath, bleeding, nausea or vomiting, chestpain, or any unexpected problems, contact your Primary Care Provider. Call [facility] ([phone]) or report to the closest Emergency Room. Call 911 if necessary. 05/24/22 1751 <Electronically signed by Yumiko Edward MD> Cosigner Signature (if applicable): CC: Dr. Talya Nichols, DO ~ Signed [facility] Work Phone: 1(236) 583-278402-02-[address] Anders [facility] April 13, 2022 10:37am Note Date/Time April 13, 2022 1 0:37am [facility] Medical Records Department [address] [place] [address] Discharge Summary 04/13/22 1033 MR#: [id number] Acct: [id number] Name: BEULAH BRIGHT Rep #:[id number] : 1940 81 From: John foster MD PCP: Dr. Talya Nichols DO Status:ADM IN Location: [place] [address] Providers Date of Admission: 04/11/22 Primary Care Physician: Dr. Talya Nichols DO Reason For Visit: CHF Diagnosis Discharge Diagnosis (1) Acute exacerbation of CHF (congestive heart failure): Status: Chronic Code(s): I50.9 - Heart failure, unspecified Plan 1. Acute on chronic hypoxic respiratory failure secondary to acute exacerbation of heart failure with preserved EF/HTN/HLD/recent non-STEMI ?When he came in his oxygen requirements were at 4 to 5 L of oxygen when at homehe uses 2 L at night ? She is down to about 2 L continuous, respiratory status appears improved compared to admission ? Continue with IV Lasix for diuresis I discussed with him the need to increase his torsemide as it had been previously, he says that his PCP had lowered it to 2.5 mg when he should have been taking 10 mg ? Recent echo with an EF of 65% ? He did have a cardiac cath that showed nonocclusive coronary artery disease 2. DM 2/CKD 3a ? We will hold his home medications ? Will place him on insulin ? Accu-Cheks ACHS ? We will make adjustments as necessary ? His creatinine is at baseline 5. Rest of chronic medical conditions including COPD, morbid obesity, complicates patient's overall management and care Patient is not in acute COPD exacerbation DVT: Heparin Medications at Discharge Home Medications atorvastatin 80 mg tablet 80 mg PO DAILY CHOLESTEROL 05/02/21 cholecalciferol (vitamin D3) 25 mcg (1,000 unit) capsule 25 mcg PO DAILY nacfbln24/21/22 glimepiride 4 mg tablet 4 mg PO DAILY diabetes 05/02/21 ipratropium 0.5 mg-albuterol 3 mg (2.5 mg base)/3 mL nebulization soln 3 ml inhalation 4X/DAY PRN sob 05/02/21 liothyronine 25 mcg tablet 25 mcg PO DAILY THYROID 05/02/21 metformin 1,000 mg tablet 500 mg PO BID DM 05/02/21 omega-3 fatty acids-vitamin E 1,000 mg capsule 2 cap PO BID SUPPLEMENT 05/02/21 tiotropium bromide 18 mcg capsule with inhalation device (Spiriva with HandiHaler) 18 mcg inhalation DAILY SOB 05/02/21 vitamins A,C,B-zwcy-ghohyt 4,296 mcg-226 mg-90 mg capsule (PreserVision AREDS) 1cap PO BID vitamin 12/13/21 lisinopril 20 mg tablet (Zestril) 20 mg PO DAILY blood pressure 03/12/22 aspirin 81 mg chewable tablet 81 mg PO DAILY@0800 anticoagulant 04/12/22 carvedilol 6.25 mg tablet 6.25 mg PO DAILY blood pressure 04/12/22 furosemide 40 mg tablet (Lasix) 40 mg PO DAILY #30 tabs 04/13/22 Hospital Course Operations None Procedures None Summary of Care Provided Minutes Spent on Discharge: 38 Hospital Course: Per HPI:BEULAH BRIGHT, is a 81 M who presents with the above.? Patient has past medical history of heart failure with preserved EF, EF 65%, COPD, hypertension, hyperlipidemia, Type II DM who comes in with progressive shortnessof breath ongoing for couple of days.? Patient was recently discharged on 03/16/2022 with acute on chronic heart failure preserved EF as well as non-STEMI.? Patient had a cardiac catheterization at that time which showed nonocclusive coronary artery disease. Since his discharge, patient stated that he had gained weight and was progressive shortness of breath.? He had followed up with his primary care doctor and his torsemide was increased.? He stated that he has worsening shortness of breath and difficulty swallowing when he takes double his torsemide dose.?He told his primary care doctor who asked him to break the pills in half.? Patient however did not do that.? He called the EMS squad for worsening shortness of breath.? He admits to gaining more than 10 kg of water weight.? He denied eating out.? He stated that he has been cooking at home.? He lives alone.? He admits to orthopnea and PND.? Denied any chest pain or dizziness or palpitation.? He is typically on 2 L of oxygen at home. His vitals in the ED showed blood pressure 170/134, heart rate 93, respiratory 30, temperature 97.8 F, oxygen sat was 98% on 4 L of oxygen.? WBC 4.6, hemoglobin 9.8, down from previous 10.3, platelet count 108, which appears to beclose to his baseline.? Sodium 145, potassium 4.7, chloride 110, bicarbonate 30,BUN 25, creatinine 1.41, improved from previous currently at 2.05.? BNP is 311.3. Admitting chest x-ray showed bilateral effusions and bibasilar opacities/atelectasis. Hospital Course: 1. Acute on chronic hypoxic respiratory failure secondary to acute exacerbation of heart failure with preserved EF/HTN/HLD/recent non-STEMI ?When he came in his oxygen requirements were at 4 to 5 L of oxygen when at homehe uses 2 L at night ? He is down to about 2 L continuous, respiratory status appears improved compared to admission ? Continue with IV Lasix for diuresis I discussed with him the need to increase his torsemide as it had been previously, he says that his PCP had lowered it to 2.5 mg when he should have been taking 10 mg ? Recent echo with an EF of 65% ? He did have a cardiac cath that showed nonocclusive coronary artery disease inthe beginning of March ? He is feeling much better today and I discussed with him the possibility for discharge as he has lost several pounds since he has been here and he expressed understanding of the risk and benefits of going home and he would like to go home today. I am not sure why his torsemide had been lowered to 2.5 mg however he says that he feels good on the Lasix so we will plan to discharge him on 40 of Lasix p.o. daily and I discussed with him the need to follow-up with his PCP in 3 to 5 days to monitor his renal function as well as taking his weights everyday and if he does have an increase in weight by 3 to 5 pounds over a few days that he should call either his PCP or his lpn r[facility] hospice about taking extra Lasix. We will do an ambulatory pulse ox prior to discharge, he does wear oxygen generally at night but has been needing it during the day here. 2.? DM 2/CKD 3a ? We will hold his home medications ? Will place him on insulin ? Accu-Cheks ACHS ? We will make adjustments as necessary ? His creatinine is at baseline 3.? Rest of chronic medical conditions including COPD, morbid obesity, complicates patient's overall management and care Patient is not in acute COPD exacerbation Physical Exam Narrative General: Alert, Oriented x3, Cooperative, No apparent distress HEENT: Atraumatic, PERRLA, EOMI, Normocephalic Oral: Moist Mucosa Neck: Supple, No JVD Lungs: Diminished, Normal air movement, No rhonchi, No wheeze, No rales Cardiovascular: Regular rate, Regular Rhythm, Normal S1, Normal S2, murmur Abdomen: Soft, Non Tender, Non-Distended, No Hepato-splenomegaly Extremities: Trace edema, Capillary Refill Less than 3 Seconds Skin: No rashes, No breakdown Musculoskeletal: No Tenderness to Palpation of Joints or Extremities Neurological: Cranial nerves II-XII grossly intact, Motor Exam 5/5 strength throughout, Sensory exam intact to light touch and pain Psych/Mental Status: Normal Affect, Appropriate Weight / BMI Weight Weight: 198 lb 3.129 oz Body Mass Index (BMI) 32.3 ABG / Lab / Microbiology Data Result Diagrams: 04/13/22 04:35 04/13/22 04:35 Laboratory: Laboratory Results - last 24 hr 04/12/22 04:12: WBC Cancelled, Corrected WBC Cancelled, RBC Cancelled, Hgb Cancelled, Hct Cancelled, MCV Cancelled, MCH Cancelled, MCHC Cancelled, RDW Std Deviation Cancelled, RDW Coeff of John Cancelled, Plt Count Cancelled, MPV Cancelled, Immature Gran % (Auto) Cancelled, Neut % (Auto) Cancelled, Lymph % (Auto) Cancelled, [place] % (Auto) Cancelled, Eos % (Auto) Cancelled, Baso % (Auto)Cancelled, Absolute Neuts (auto) Cancelled, Absolute Lymphs (auto) Cancelled, Total Counted Cancelled, Neutrophils % (Manual) Cancelled, Band Neutrophils % Cancelled, Lymphocytes % (Manual) Cancelled, Monocytes % (Manual) Cancelled, Eosinophils % (Manual) Cancelled, Basophils % (Manual) Cancelled, Metamyelocytes% Cancelled, Myelocytes % Cancelled, Promyelocytes % Cancelled, Blast Cells % Cancelled, Plasma Cell % (Manual) Cancelled, Other Cells % Cancelled, Nucleated RBC % Cancelled, Nucleated RBCs/100 WBC Cancelled, Differential Comment Cancelled, Diff Path Review Cancelled, Hypersegmented Neuts Cancelled, Atypical Lymphocytes Cancelled, Reactive Lymphocytes Cancelled, Smudge Cells Cancelled, Toxic Granulation Cancelled, Toxic Vacuolation Cancelled, Dohle Bodies Cancelled, Violet Rods Cancelled, Platelet Estimate Cancelled, Plt Morphology Comment Cancelled, RBC Morphology Cancelled, Polychromasia Cancelled, Hypochromasia Cancelled, Poikilocytosis Cancelled, Basophilic Stippling Cancelled, Anisocytosis Cancelled, Microcytosis Cancelled, Macrocytosis Cancelled, Spherocytes Cancelled, Sickle Cells Cancelled, Target Cells Cancelled, Tear DropCells Cancelled, Ovalocytes Cancelled, Stomatocytes Cancelled, [place] Bodies Cancelled, Glory Cells Cancelled, Bite Cells Cancelled, Crenated Cell Cancelled, Acanthocytes (Spur) Cancelled, Rouleaux Cancelled, Schistocytes Cancelled 04/12/22 04:12: Sodium Cancelled, Potassium Cancelled, Chloride Cancelled, Carbon Dioxide Cancelled, Anion Gap Cancelled, BUN Cancelled, Creatinine Cancelled, Estim Creat Clear Calc Cancelled, Est GFR (MDRD) Af Amer Cancelled, Est GFR (MDRD) Non-Af Cancelled, BUN/Creatinine Ratio Cancelled, Glucose Cancelled, Calcium Cancelled, Total Bilirubin Cancelled, AST Cancelled, ALT Cancelled, Alkaline Phosphatase Cancelled, Total Protein Cancelled, Albumin Cancelled, Globulin Cancelled, Albumin/Globulin Ratio Cancelled 04/12/22 10:10: Sodium 143, Potassium 4.1, Chloride 102, Carbon Dioxide 34.0 H, Anion Gap 7, BUN 27 H, Creatinine 1.54 H, Estim Creat Clear Calc 32.17, Est GFR (MDRD) Af Amer 56 L, Est GFR (MDRD) Non-Af 46 L, BUN/Creatinine Ratio 17.5, Glucose 291 H, Calcium 9.4, Total Bilirubin 0.60, AST 20, ALT 21, Alkaline Phosphatase 77, Total Protein 6.6, Albumin 3.0 L, Globulin 3.6, Albumin/GlobulinRatio 0.8 L 04/12/22 11:18: POC Glucose 205 H 04/12/22 11:50: WBC 4.9, RBC 3.39 L, Hgb 10.7 L, Hct 32.0 L, MCV 94.4 H, MCH 31.6, MCHC 33.4 D, RDW Std Deviation 46.8 H, RDW Coeff of John 13.5, Plt Count 117 L, MPV 10.7, Immature Gran % (Auto) 0.200, Neut % (Auto) 69.0, Lymph % (Auto) 20.3, [place] % (Auto) 6.4, Eos % (Auto) 3.9, Baso % (Auto) 0.2, Absolute Neuts (auto) 3.4, Absolute Lymphs (auto) 0.99, Nucleated RBC % 0 04/12/22 16:32: POC Glucose 155 H 04/12/22 20:53: POC Glucose 99 04/13/22 04:35: WBC 5.6, RBC 3.65 L, Hgb 11.0 L, Hct 33.6 L, MCV 92.1, MCH 30.1,MCHC 32.7, RDW Std Deviation 44.9 H, RDW Coeff of John 13.2, Plt Count 125 L, MPV10.7, Immature Gran % (Auto) 0.200, Neut % (Auto) 56.0, Lymph % (Auto) 29.3, [place] % (Auto) 8.8, Eos % (Auto) 5.2 H, Baso % (Auto) 0.5, Absolute Neuts (auto) 3.1, Absolute Lymphs (auto) 1.63, Nucleated RBC % 0 04/13/22 04:35: Sodium 143, Potassium 3.9, Chloride 100, Carbon Dioxide 35.0 H, Anion Gap 8, BUN 37 H, Creatinine 1.51 H, Estim Creat Clear Calc 32.81, Est GFR (MDRD) Af Amer 57 L, Est GFR (MDRD) Non-Af 47 L, BUN/Creatinine Ratio 24.5 H, Glucose 133 H, Calcium 9.9 02/02/23 05:49: POC Glucose 140 H D/C Instructions Discharge Diet: Low fat / Low cholesterol, 6 Cup Fluid Restriction and Carb Control Diet Call your doctor if you observe: Fever of 101 or Higher, Shortness of breath, Dizziness, Fainting spells, Swelling in the ankles, Chest pain and Increased palpitations (irregular heartbeat) Meaningful Use Info Meaningful Use Diagnoses (Choose all that apply): None applicable Discharge Plan Admission Admit Date/Time: 04/11/22 21:01 Attending Provider: John Anders Primary Care Provider: Talya Nichols Consulting Providers: Ayesha Sainz Instructions Additional Instructions / Restrictions: Follow-up with your primary care doctor in 3 to 5 days as well as your lpn rn hospice within a month. It is important that you take the Lasix every day and I do recommend outpatient follow-up to monitor your kidney function. It is also important that you monitor your weight every day and if you notice a more than 3 to 5 pound weight gain call your primary care doctor or your cardiologistabout taking an extra Lasix dose. Discharge Orders/Prescriptions Prescriptions: New furosemide [Lasix] 40 mg tablet 40 mg PO DAILY Qty: 30 0RF Continued atorvastatin 80 mg tablet 80 mg PO DAILY Label Comments: TAKE 1 TABLET BY MOUTH ONCE DAILY ipratropium-albuterol 0.5 mg-3 mg(2.5 mg base)/3 mL solution for nebulization 3 ml inhalation 4X/DAY PRN (Reason: sob) Label Comments: inhale contents of 1 vial ( 3 milliliters ) in nebulizer by mouth... (REFER TO PRESCRIPTION NOTES). liothyronine 25 mcg tablet 25 mcg PO DAILY Label Comments: TAKE 1 TABLET BY MOUTH ONCE DAILY FOR 90 DAYS metformin 1,000 mg tablet 500 mg PO BID glimepiride 4 mg tablet 4 mg PO DAILY Label Comments: TAKE 1 TABLET BY MOUTH ONCE DAILY Spiriva with HandiHaler 18 mcg capsule, w/inhalation device 18 mcg INHALATION DAILY Label Comments: INHALE THE CONTENTS OF 1 CAPSULE TWICE EACH TIME VIA HANDIHALER ONCE DAILY cholecalciferol (vitamin D3) 25 mcg (1,000 unit) Capsule 25 mcg PO DAILY omega-3 fatty acids-vitamin E 1,000 mg Capsule 2 cap PO BID PreserVision AREDS [id number] Capsule 1 cap PO BID lisinopril [Zestril] 20 mg tablet 20 mg PO DAILY Hold Instructions: Resume on 03/18/22. carvedilol 6.25 mg tablet 6.25 mg PO DAILY aspirin 81 mg tablet,chewable 81 mg PO DAILY@0800 Discontinued torsemide 10 mg tablet 2.5 mg PO DAILY Referrals / Follow Up: Talya Nichols DO [Primary Care Provider] - 04/19/22 1:30 pm Bart Galo NP, FILL MANAGER-C [Med Staff - Adv Practice Prof] - 05/02/22 10:00 am Disposition Disposition (needs filled in before D/C Order can be placed): Home, Self Care Charges/Coding Visit Charges Inpatient E&M: 28912 Disch Hosp >30min 04/13/22 1037 <Electronically signed by John Anders MD> Cosigner Signature (if applicable): CC: Dr. Talya Nichols DO; Dr. John Anders MD~ Signed [facility] Work Phone: 1(168) 423-552102-02-[address] Anders [facility] April 13, 2022 9:58am Note Date/Time April 13, 2022 9 :55am [facility] Medical Records Department [address] [place] [id number] Instructions for Home/Discharge Instructions 04/13/22 0954 MR#: [id number] Acct: [id number] Name: BEULAH BRIGHT Rep #:[id number] : 1940 81 From: John foster MD PCP: Dr. Talya Nichols DO Status:ADM IN Discharge Instructions Diet Discharge Diet: Low fat / Low cholesterol, 6 Cup Fluid Restriction and Carb Control Diet Activity Discharge Activity: Return to Normal Activity Dressing / Incision Call your doctor if you observe: Fever of 101 or Higher, Shortness of breath, Dizziness, Fainting spells, Swelling in the ankles, Chest pain and Increased palpitations (irregular heartbeat) Follow Up Care Test Results: Test results from this visit will be discussed in further detail at your follow- up appointment, if applicable. Discharge Plan Admission Admit Date/Time: 04/11/22 21:01 Attending Provider: John Anders Primary Care Provider: Talya Nichols Consulting Providers: Ayesha Sainz Instructions Additional Instructions / Restrictions: Follow-up with your primary care doctor in 3 to 5 days as well as your lpn rn hospice within a month. It is important that you take the Lasix every day and I do recommend outpatient follow-up to monitor your kidney function. It is also important that you monitor your weight every day and if you notice a more than 3 to 5 pound weight gain call your primary care doctor or your cardiologistabout taking an extra Lasix dose. Discharge Orders/Prescriptions Prescriptions: New furosemide [Lasix] 40 mg tablet 40 mg PO DAILY Qty: 30 0RF Continued atorvastatin 80 mg tablet 80 mg PO DAILY Label Comments: TAKE 1 TABLET BY MOUTH ONCE DAILY ipratropium-albuterol 0.5 mg-3 mg(2.5 mg base)/3 mL solution for nebulization 3 ml inhalation 4X/DAY PRN (Reason: sob) Label Comments: inhale contents of 1 vial ( 3 milliliters ) in nebulizer by mouth... (REFER TO PRESCRIPTION NOTES). liothyronine 25 mcg tablet 25 mcg PO DAILY Label Comments: TAKE 1 TABLET BY MOUTH ONCE DAILY FOR 90 DAYS metformin 1,000 mg tablet 500 mg PO BID glimepiride 4 mg tablet 4 mg PO DAILY Label Comments: TAKE 1 TABLET BY MOUTH ONCE DAILY Spiriva with HandiHaler 18 mcg capsule, w/inhalation device 18 mcg INHALATION DAILY Label Comments: INHALE THE CONTENTS OF 1 CAPSULE TWICE EACH TIME VIA HANDIHALER ONCE DAILY cholecalciferol (vitamin D3) 25 mcg (1,000 unit) Capsule 25 mcg PO DAILY omega-3 fatty acids-vitamin E 1,000 mg Capsule 2 cap PO BID PreserVision AREDS [id number] Capsule 1 cap PO BID lisinopril [Zestril] 20 mg tablet 20 mg PO DAILY Hold Instructions: Resume on 03/18/22. carvedilol 6.25 mg tablet 6.25 mg PO DAILY aspirin 81 mg tablet,chewable 81 mg PO DAILY@0800 Discontinued torsemide 10 mg tablet 2.5 mg PO DAILY Referrals / Follow Up: Magdalena,Talya, DO [Primary Care Provider] - Within 1 Week Yuridia Blunt MD [Med Staff - Active Staff] - Within 1 Month Disposition Disposition (needs filled in before D/C Order can be placed): Home, Self Care 04/13/22 0958<Electronically signed by John Anders MD>John Anders MD CC: Dr. Ayesha Sainz MD; Dr. Talya Nichols, DO ~ Signed [facility] Work Phone: [phone]) 183-243302-01-[address] Anders [facility] April 12, 2022 12:25pm Note Date/Time April 12, 2022 1 2:21pm [facility] Medical Records Department [address] [place] [id number] Progress Note - Hospitalist 04/12/22 1210 MR#: [id number] Acct: [id number] Name: BEULAH BRIGHT Rep #:[id number] : 1940 81 From: John foster MD PCP: Dr. Talya Nichols, DO Status:ADM IN Location: [place] [address] Subjective Subjective Doing well, no issues overnight. He is breathing back to baseline and swelling is improving Objective Data Objective Data Vital Signs: Vital Signs Temp Pulse Resp BP Pulse Ox O2 Del Method O2 Flow Rate 98 F 91 20 H 140/46 H 95 Nasal Cannula 2 04/12/22 11:02 04/12/22 11:02 04/12/22 11:02 04/12/22 11:02 04/12/22 11:02 04/12/22 11:02 04/12/22 11:02 Oxygen Flow Rate (L/min) 2 Oxygen Delivery Method Nasal Cannula Weight: 194 lb 7.163 oz Body Mass Index (BMI) 32.3 Intake & Output: Intake and Output for Last 24 Hours 04/11/22 04/12/22 04/13/22 03:59 03:59 03:59 Output Total 900 / 900 1100 / 1100 Balance -900 / -900 -1100 / -1100 Lab / Micro Data Result Diagrams: 04/11/22 18:25 04/12/22 10:10 Labs: Laboratory Results - last 24 hr 04/11/22 18:25: WBC 4.6, RBC 3.31 L, Hgb 9.8 L, Hct 31.9 L, MCV 96.4 H, MCH 29.6, MCHC 30.7 L, RDW Std Deviation 48.2 H, RDW Coeff of John 13.6, Plt Count 108 L, MPV 11.2, Immature Gran % (Auto) 0.200, Neut % (Auto) 66.7, Lymph % (Auto) 22.4, [place] % (Auto) 6.0, Eos % (Auto) 4.3, Baso % (Auto) 0.4, Absolute Neuts (auto) 3.1, Absolute Lymphs (auto) 1.04, Nucleated RBC % 0 04/11/22 18:25: Sodium 145, Potassium 4.7, Chloride 110 H, Carbon Dioxide 30.0, Anion Gap 5, BUN 25 H, Creatinine 1.41 H, Estim Creat Clear Calc 35.14, Est GFR (MDRD) Af Amer 62, Est GFR (MDRD) Non-Af 51 L, BUN/Creatinine Ratio 17.7, Glucose 160 H, Calcium 9.1, Troponin I High Sens 25 04/11/22 18:25: B-Natriuretic Peptide 311.3 H 04/11/22 21:30: Troponin I High Sens 27 04/12/22 04:12: WBC Cancelled, Corrected WBC Cancelled, RBC Cancelled, Hgb Cancelled, Hct Cancelled, MCV Cancelled, MCH Cancelled, MCHC Cancelled, RDW Std Deviation Cancelled, RDW Coeff of John Cancelled, Plt Count Cancelled, MPV Cancelled, Immature Gran % (Auto) Cancelled, Neut % (Auto) Cancelled, Lymph % (Auto) Cancelled, [place] % (Auto) Cancelled, Eos % (Auto) Cancelled, Baso % (Auto)Cancelled, Absolute Neuts (auto) Cancelled, Absolute Lymphs (auto) Cancelled, Total Counted Cancelled, Neutrophils % (Manual) Cancelled, Band Neutrophils % Cancelled, Lymphocytes % (Manual) Cancelled, Monocytes % (Manual) Cancelled, Eosinophils % (Manual) Cancelled, Basophils % (Manual) Cancelled, Metamyelocytes% Cancelled, Myelocytes % Cancelled, Promyelocytes % Cancelled, Blast Cells % Cancelled, Plasma Cell % (Manual) Cancelled, Other Cells % Cancelled, Nucleated RBC % Cancelled, Nucleated RBCs/100 WBC Cancelled, Differential Comment Cancelled, Diff Path Review Cancelled, Hypersegmented Neuts Cancelled, Atypical Lymphocytes Cancelled, Reactive Lymphocytes Cancelled, Smudge Cells Cancelled, Toxic Granulation Cancelled, Toxic Vacuolation Cancelled, Dohle Bodies Cancelled, Violet Rods Cancelled, Platelet Estimate Cancelled, Plt Morphology Comment Cancelled, RBC Morphology Cancelled, Polychromasia Cancelled, Hypochromasia Cancelled, Poikilocytosis Cancelled, Basophilic Stippling Cancelled, Anisocytosis Cancelled, Microcytosis Cancelled, Macrocytosis Cancelled, Spherocytes Cancelled, Sickle Cells Cancelled, Target Cells Cancelled, Tear DropCells Cancelled, Ovalocytes Cancelled, Stomatocytes Cancelled, [place] Bodies Cancelled, [place] Cells Cancelled, Bite Cells Cancelled, Crenated Cell Cancelled, Acanthocytes (Spur) Cancelled, Rouleaux Cancelled, Schistocytes Cancelled 04/12/22 04:12: Sodium Cancelled, Potassium Cancelled, Chloride Cancelled, Carbon Dioxide Cancelled, Anion Gap Cancelled, BUN Cancelled, Creatinine Cancelled, Estim Creat Clear Calc Cancelled, Est GFR (MDRD) Af Amer Cancelled, Est GFR (MDRD) Non-Af Cancelled, BUN/Creatinine Ratio Cancelled, Glucose Cancelled, Calcium Cancelled, Total Bilirubin Cancelled, AST Cancelled, ALT Cancelled, Alkaline Phosphatase Cancelled, Total Protein Cancelled, Albumin Cancelled, Globulin Cancelled, Albumin/Globulin Ratio Cancelled 04/12/22 06:25: POC Glucose 111 H 04/12/22 10:10: Sodium 143, Potassium 4.1, Chloride 102, Carbon Dioxide 34.0 H, Anion Gap 7, BUN 27 H, Creatinine 1.54 H, Estim Creat Clear Calc 32.17, Est GFR (MDRD) Af Amer 56 L, Est GFR (MDRD) Non-Af 46 L, BUN/Creatinine Ratio 17.5, Glucose 291 H, Calcium 9.4, Total Bilirubin 0.60, AST 20, ALT 21, Alkaline Phosphatase 77, Total Protein 6.6, Albumin 3.0 L, Globulin 3.6, Albumin/GlobulinRatio 0.8 L 04/12/22 11:18: POC Glucose 205 H Radiography Diagnostic Testing: Radiology Impression Chest X-Ray 04/11/22 19:13 IMPRESSION: Bilateral effusions with bibasilar opacity which may represent atelectasis or pneumonia. There has been minimal change from the reference exam. Electronically Signed: Manuel Her MD at 19:44 EST , Physical Exam Narrative General: Alert, Oriented x3, Cooperative, No apparent distress HEENT: Atraumatic, PERRLA, EOMI, Normocephalic Oral: Moist Mucosa Neck: Supple, No JVD Lungs: Diminished, Normal air movement, No rhonchi, No wheeze, No rales Cardiovascular: Regular rate, Regular Rhythm, Normal S1, Normal S2, murmur Abdomen: Soft, Non Tender, Non-Distended, No Hepato-splenomegaly Extremities: edema, Capillary Refill Less than 3 Seconds Skin: No rashes, No breakdown Musculoskeletal: No Tenderness to Palpation of Joints or Extremities Neurological: Cranial nerves II-XII grossly intact, Motor Exam 5/5 strength throughout, Sensory exam intact to light touch and pain Psych/Mental Status: Normal Affect, Appropriate Assessment & Plan Assessment/Plan (1) Acute exacerbation of CHF (congestive heart failure): PLAN: Plan 1. Acute on chronic hypoxic respiratory failure secondary to acute exacerbation of heart failure with preserved EF/HTN/HLD/recent non-STEMI ?When he came in his oxygen requirements were at 4 to 5 L of oxygen when at homehe uses 2 L at night ? She is down to about 2 L continuous, respiratory status appears improved compared to admission ? Continue with IV Lasix for diuresis I discussed with him the need to increase his torsemide as it had been previously, he says that his PCP had lowered it to 2.5 mg when he should have been taking 10 mg ? Recent echo with an EF of 65% ? He did have a cardiac cath that showed nonocclusive coronary artery disease 2. DM 2/CKD 3a ? We will hold his home medications ? Will place him on insulin ? Accu-Cheks ACHS ? We will make adjustments as necessary ? His creatinine is at baseline 5. Rest of chronic medical conditions including COPD, morbid obesity, complicates patient's overall management and care Patient is not in acute COPD exacerbation DVT: Heparin Charges/Coding Visit Charges Inpatient E&M: 94358 Subs Hosp L2 04/12/22 1225 <Electronically signed by John Anders MD> Cosigner Signature (if applicable): CC: ~ Signed [facility] Work Phone: 1(359) 814-755802-01-2023 History and physical note Author Dr. Sainz [facility] April 11, 2022 11:39pm Note Date/Time April 11, 2022 9 :13pm [facility] Medical Records Department [address] [facility] [place] [address] H&P Exam - Hospitalist 04/11/222112 MR#: [id number] Acct: [id number] Name: BEULAH BRIGHT Rep #:[id number] : 1940 81 From: Ayesha Sainz MD PCP: Dr. Talya Nichols, DO Status:ADM IN Location: [facility] [id number] HPI - General General Date of Admission: 04/11/22 Date of Service: 04/11/22 Chief Complaint: SOB - ongoing for a couple of days HPI Narrative BEULAH BRIGHT, is a 81 M who presents with the above. Patient has past medical history of heart failure with preserved EF, EF 65%, COPD, hypertension, hyperlipidemia, Type II DM who comes in with progressive shortness of breath ongoing for couple of days. Patient was recently discharged on 03/16/2022 with acute on chronic heart failure preserved EF as well as non-STEMI. Patient had acardiac catheterization at that time which showed nonocclusive coronary artery disease. Since his discharge, patient stated that he had gained weight and was progressive shortness of breath. He had followed up with his primary care doctor and his torsemide was increased. He stated that he has worsening shortness of breath and difficulty swallowing when he takes double his torsemide dose. He told his primary care doctor who asked him to break the pills in half. Patient however did not do that. He called the EMS squad for worsening shortness of breath. He admits to gaining more than 10 kg of water weight. He denied eating out. He stated that he has been cooking at home. He lives alone. He admits to orthopnea and PND. Denied any chest pain or dizziness or palpitation. He is typically on 2 L of oxygen at home. His vitals in the ED showed blood pressure 170/134, heart rate 93, respiratory 30, temperature 97.8 F, oxygen sat was 98% on 4 L of oxygen. WBC 4.6, hemoglobin 9.8, down from previous 10.3, platelet count 108, which appears to beclose to his baseline. Sodium 145, potassium 4.7, chloride 110, bicarbonate 30,BUN 25, creatinine 1.41, improved from previous currently at 2.05. BNP is 311.3. Admitting chest x-ray showed bilateral effusions and bibasilar opacities/atelectasis. [facility] Medical History Aortic valve stenosis, acquired Atherosclerotic heart disease of [place] coronary artery without angina pectoris CAD (coronary artery disease) Chronic respiratory failure with hypoxia COPD (chronic obstructive pulmonary disease) COPD (chronic obstructive pulmonary disease) Debility Diabetes mellitus, type 2 Essential hypertension Former tobacco use History of left heart catheterization (LHC) (~03/15/22) HLD (hyperlipidemia) HTN (hypertension) Hypothyroidism Mild left ventricular hypertrophy Nonrheumatic aortic (valve) stenosis Obesity Polyarthralgia Home Medications atorvastatin 80 mg tablet 80 mg PO DAILY CHOLESTEROL 05/02/21 [History Last Taken 03/11/22] cholecalciferol (vitamin D3) 25 mcg (1,000 unit) capsule 25 mcg PO DAILY [id number]/22 [History Last Taken 03/11/22] glimepiride 4 mg tablet 4 mg PO DAILY diabetes 05/02/21 [History Last Taken 03/11/22] ipratropium 0.5 mg-albuterol 3 mg (2.5 mg base)/3 mL nebulization soln 3 ml inhalation 4X/DAY PRN sob 05/02/21 [History Last Taken 3 Days Ago ~12/10/21] liothyronine 25 mcg tablet 25 mcg PO DAILY THYROID 05/02/21 [History Last Taken 12/13/21] metformin 1,000 mg tablet 500 mg PO BID DM 05/02/21 [History Last Taken 03/11/22] omega-3 fatty acids-vitamin E 1,000 mg capsule 2 cap PO BID SUPPLEMENT 05/02/21 [History Last Taken 12/13/21] tiotropium bromide 18 mcg capsule with inhalation device (Spiriva with HandiHaler) 18 mcg inhalation DAILY SOB 05/02/21 [History Last Taken 03/11/22] vitamins A,C,P-vgyd-tdzpas 4,296 mcg-226 mg-90 mg capsule (PreserVision AREDS) 1cap PO BID vitamin 12/13/21 [History Last Taken 12/13/21] baclofen 10 mg tablet 10 mg PO TID PRN PRN Muscle Spasm 03/12/22 [History Last Taken Unknown] lisinopril 20 mg tablet (Zestril) 20 mg PO DAILY blood pressure 03/12/22 [History Last Taken Unknown] aspirin 81 mg chewable tablet 81 mg PO DAILY@0800 #30 tabs 03/16/22 [Rx Last Taken Unknown] carvedilol 6.25 mg tablet 6.25 mg PO BID #60 tabs 03/16/22 [Rx Last Taken Unknown] allopurinol 100 mg tablet 100 mg PO DAILY 04/11/22 [History Last Taken Unknown] torsemide 10 mg tablet 5 mg PO DAILY Diuretic 04/11/22 [History Last Taken Unknown] Allergy/AdvReac Type Severity Reaction Status Date / Time codeine AdvReac Upset Verified 04/11/22 18:16 Stomach Family History Mother CVA (cerebral vascular accident) Heart disease Myocardial infarction Hx of CABG Hypertension Father CVA (cerebral vascular accident) Heart disease Surgical History S/P cataract extraction Social History household members: none housing: house Smoking Status: Former smoker how long ago did patient quit smoking: Quit 2010, prior 1 ppd since teen. alcohol intake: former year quit: 2010 substance use type: does not use ROS ROS Narrative Constitutional: Reports: Malaise, Weakness, Fatigue. Denies: Anorexia, Chills, Fever, Night Sweats, Weight Change Eyes: Denies: Blurred vision, Cataracts, Conjunctivae Inflammation, Pain, Redness, Vision Change HEENT: Denies: Difficulty Hearing, Difficulty Swallowing, Head Aches, Hearing Changes, Sinus Congestion, Sinus Drainage Cardiovascular: See HPI Respiratory: Denies: See HPI Gastrointestinal: Denies: Abdominal Pain, Nausea, Vomiting Genitourinary: Denies: Dysuria Musculoskeletal: Denies: Joint Pain, Joint stiffness, Joint swelling, Joint Tenderness Skin: Denies: Rash, Wounds Neurological: Denies: Numbness, Tingling, Focal weakness Vital Signs Vital Signs Vital Signs: 04/11/22 18:11 04/11/22 18:15 04/11/22 18:21 Temperature 97.8 F 97.8 F Temperature Source Temporal Temporal Pulse Rate 93 89 Respiratory Rate 30 H 30 H Respiratory Effort Short of Breath Respiratory Pattern Tachypnea Blood Pressure 170/134 H 170/134 H Blood Pressure Mean 146 146 Pulse Ox 98 99 Oxygen Delivery Method Nasal Cannula Nasal Cannula Nasal Cannula Oxygen Flow Rate (L/min) 4 4 4 04/11/22 18:23 04/11/22 20:18 Temperature Temperature Source Pulse Rate 91 79 Respiratory Rate 20 H 19 H Respiratory Effort Respiratory Pattern Blood Pressure 178/56 H 176/61 H Blood Pressure Mean 96 99 Pulse Ox 99 96 Oxygen Delivery Method Nasal Cannula Nasal Cannula Oxygen Flow Rate (L/min) 4 4 Weight Weight: 95.1 kg Body Mass Index (BMI) 34.9 Physical Exam Narrative Physical exam: General: Alert, Oriented x3, Cooperative, obese, in mild respiratory distress with conversational dyspnea HEENT: Atraumatic Oral: Moist Mucosa Neck: Supple Lungs: Diminished to auscultation, crackles at the lung bases Cardiovascular: HS I+II, regular, no murmurs Abdomen: Bowel Sounds Present, Soft, Non Tender Extremities: Bilateral leg edema +1 Skin: No rashes, No breakdown Neurological: Grossly intact Psych/Mental Status: Appropriate Results Lab / Micro Data Result Diagrams: 04/11/22 18:25 04/11/22 18:25 Labs: Laboratory Results - last 24 hr 04/11/22 18:25: WBC 4.6, RBC 3.31 L, Hgb 9.8 L, Hct 31.9 L, MCV 96.4 H, MCH 29.6, MCHC 30.7 L, RDW Std Deviation 48.2 H, RDW Coeff of John 13.6, Plt Count 108 L, MPV 11.2, Immature Gran % (Auto) 0.200, Neut % (Auto) 66.7, Lymph % (Auto) 22.4, [place] % (Auto) 6.0, Eos % (Auto) 4.3, Baso % (Auto) 0.4, Absolute Neuts (auto) 3.1, Absolute Lymphs (auto) 1.04, Nucleated RBC % 0 04/11/22 18:25: Sodium 145, Potassium 4.7, Chloride 110 H, Carbon Dioxide 30.0, Anion Gap 5, BUN 25 H, Creatinine 1.41 H, Estim Creat Clear Calc 35.14, Est GFR (MDRD) Af Amer 62, Est GFR (MDRD) Non-Af 51 L, BUN/Creatinine Ratio 17.7, Glucose 160 H, Calcium 9.1, Troponin I High Sens 25 04/11/22 18:25: B-Natriuretic Peptide 311.3 H Radiology Impression Chest X-Ray 04/11/22 19:13 IMPRESSION: Bilateral effusions with bibasilar opacity which may represent atelectasis or pneumonia. There has been minimal change from the reference exam. Electronically Signed: Manuel Her MD at 19:44 EST , Assessment & Plan Assessment/Plan (1) Acute exacerbation of CHF (congestive heart failure): PLAN: Plan 1. Acute on chronic hypoxic respiratory failure secondary to acute exacerbation of heart failure with preserved EF Patient is currently on 4 to 5 L of oxygen, wears 2 L of oxygen at home Continue CHF protocol, wean off for SPO2 more than 94%, encourage use of incentive spirometer 2. Acute exacerbation of heart failure preserved EF, EF 65%, secondary to medication noncompliance Suspect dietary noncompliance Continue on IV Lasix 40 mg every 8 hours, daily weights, strict I's and O's 3. Hypertension/hyperlipidemia/history of recent non-STEMI Status postcardiac cath that showed nonocclusive coronary artery disease We will continue on home blood pressure meds and statin 4. CKD stage III, admitted creatinine 1.41, creatinine is close to the baseline of 1.3?1.4 We will trend labs to monitor renal function as CHF is being treated 5. Type II DM, on metformin and glimepiride, will hold these Continue with blood glucose checks with insulin sliding scale 6. Rest of chronic medical conditions including COPD, morbid obesity, complicates patient's overall management and care Patient is not in acute COPD exacerbation 7. DVT prophylaxis?heparin subcu Total time spent: 75 minutes of which more > 50% was spent in reviewing patient's chart, laboratory investigations, imaging, taking history from patientand physical examining him, talking to emergency room physician and nursing staff. Charges/Coding Visit Charges Inpatient E&M: 32520 Init Hosp L3 04/11/22 2339 <Electronically signed by Ayesha Sainz MD> Cosigner Signature (if applicable): CC: Dr. Ayesha Sainz MD; Dr. Talya Nichols DO~ Signed [facility] Work Phone: [phone] 432-198201-31-[address] Yan [facility] April 11, 2022 8:43pm Note Date/Time April 11, 2022 7 :03pm [facility] Medical Records Department [address] [place] [address] Emergency Department Summary 04/11/22 MR#: [id number] Acct: [id number] Name: BEULAH RBIGHT Rep #:[id number] : 1940 81 From: Dusty Yan MD PCP: Dr. Talya Nichols DO Status:REG ER Location: ED HPI History of Present Illness Chief Complaint: Shortness of Breath Detail of Chief Complaint: Increase shortness of breath over the past several days Informant: patient Onset/Context/Timing Onset: Days Context: Gradual Onset Timing: Continuous Quality: Dyspnea, dyspnea on exertion, orthopnea Location: Not applicable Current Severity: Mild Maximum Severity: Severe Worsened by: Supine and walking Relieved by: Nothing Associated Symptoms Associated Symptoms: No chest discomfort Narrative Narrative: Patient is 81-year-old male. He is hard of hearing and is a poor informant. Heinformed that he had a cardiac catheterization this month. Review of prior records indicates he had a cardiac catheterization on March 15, 2022. The results are as follows: CORONARY ANGIOGRAPHY DOMINANCE:? Right Dominant LEFT HEART ASSESSMENT Left Ventricular Ejection Fraction: Not assessed Normal Left Ventricular End Diastolic Pressure LVEDP: 10 mmHg LEFT MAIN: Mild calcification, proximal: eccentric: 25 % Stenosis LEFT ANTERIOR DESCENDING ARTERY: Mild luminal irregularities PROX LAD: Mild calcification DIAGONAL 1: Proximal - Moderate calcification, Proximal - lyt[place] bend with 50 % Stenosis CIRCUMFLEX ARTERY: PROX CIRC: Mild calcification, Mild luminal irregularities RIGHT CORONARY ARTERY: Mild luminal irregularities There was no significant abnormalities noted. Diagonal 1 had 50% stenosis. There were other areas with minimal stenosis of 25% and minimal luminal irregularities. Patient states he was instructed by his doctor to increase his Lasix. He discontinued his Lasix on . Said increased shortness of breath. He is on home oxygen at 2 L. He states he is sleeping in a chair at approximately 75 degree angle. He does report mild swelling of his legs. He denies chest discomfort. He denies fever, chills night sweats. He denies headache, visual, ocular auditory symptoms. He denies cough. He states he is able to walk aroundhis residence. He denies nausea, vomiting diarrhea. Denies black or maroon-colored stool. He denies urologic symptoms. Prior similar symptoms: Yes Recent Illness[facility] Medical History Aortic valve stenosis, acquired Atherosclerotic heart disease of [place] coronary artery without angina pectoris CAD (coronary artery disease) Chronic respiratory failure with hypoxia COPD (chronic obstructive pulmonary disease) COPD (chronic obstructive pulmonary disease) Debility Diabetes mellitus, type 2 Essential hypertension Former tobacco use History of left heart catheterization (LHC) (~03/15/22) HLD (hyperlipidemia) HTN (hypertension) Hypothyroidism Mild left ventricular hypertrophy Nonrheumatic aortic (valve) stenosis Obesity Polyarthralgia Home Medications atorvastatin 80 mg tablet 80 mg PO DAILY CHOLESTEROL 05/02/21 [History Last Taken 03/11/22] cholecalciferol (vitamin D3) 25 mcg (1,000 unit) capsule 25 mcg PO DAILY [id number]/22 [History Last Taken 03/11/22] glimepiride 4 mg tablet 4 mg PO DAILY diabetes 05/02/21 [History Last Taken 03/11/22] ipratropium 0.5 mg-albuterol 3 mg (2.5 mg base)/3 mL nebulization soln 3 ml inhalation 4X/DAY PRN sob 05/02/21 [History Last Taken 3 Days Ago ~12/10/21] liothyronine 25 mcg tablet 25 mcg PO DAILY THYROID 05/02/21 [History Last Taken 12/13/21] metformin 1,000 mg tablet 500 mg PO BID DM 05/02/21 [History Last Taken 03/11/22] omega-3 fatty acids-vitamin E 1,000 mg capsule 2 cap PO BID SUPPLEMENT 05/02/21 [History Last Taken 12/13/21] tiotropium bromide 18 mcg capsule with inhalation device (Spiriva with HandiHaler) 18 mcg inhalation DAILY SOB 05/02/21 [History Last Taken 03/11/22] vitamins A,C,E-segs-aaynzu 4,296 mcg-226 mg-90 mg capsule (PreserVision AREDS) 1cap PO BID vitamin 12/13/21 [History Last Taken 12/13/21] baclofen 10 mg tablet 10 mg PO TID PRN PRN Muscle Spasm 03/12/22 [History Last Taken Unknown] lisinopril 20 mg tablet (Zestril) 20 mg PO DAILY blood pressure 03/12/22 [History Last Taken Unknown] aspirin 81 mg chewable tablet 81 mg PO DAILY@0800 #30 tabs 03/16/22 [Rx Last Taken Unknown] carvedilol 6.25 mg tablet 6.25 mg PO BID #60 tabs 03/16/22 [Rx Last Taken Unknown] torsemide 10 mg tablet 10 mg PO DAILY Diuretic #1 TAB 03/16/22 [Rx Last Taken 03/11/22] Allergy/AdvReac Type Severity Reaction Status Date / Time codeine AdvReac Upset Verified 04/11/22 18:16 Stomach Family History Mother CVA (cerebral vascular accident) Heart disease Myocardial infarction Hx of CABG Hypertension Father CVA (cerebral vascular accident) Heart disease Surgical History S/P cataract extraction Social History household members: none housing: house Smoking Status: Former smoker how long ago did patient quit smoking: Quit 2010, prior 1 ppd since teen. alcohol intake: former year quit: 2010 substance use type: does not use ROS ROS ED Review of Systems ROS Unobtainable: other Details: Poor informant and hard of hearing Constitutional Constitutional ED: Denies chills, fever(s) or subjective Eyes Eyes: Denies blurry vision, change in vision or diplopia ENT ENT ED: Denies ear pain, rhinorrhea or sore throat Cardiovascular Cardiovascular: Reports orthopnea; Denies chest pain, palpitations, paroxysmal nocturnal dyspnea or racing heartbeat Respiratory/Chest Respiratory/Chest: Reports dyspnea on exertion and orthopnea; Denies cough or paroxysmal nocturnal dyspnea Gastrointestinal Gastrointestinal: Denies abdominal pain, melena, nausea or vomiting Genitourinary Genitourinary ED: Denies dysuria, hematuria or urinary frequency Musculoskeletal Musculoskeletal: Denies arthralgias, back pain, myalgias or neck pain Integumentary Denies abscess or rash Neurologic Neurologic: Denies headache(s), paresthesias or weakness Endocrine Endocrinology: Denies polydipsia, polyphagia or polyuria EXAM Physical Exam Const Vital Signs: 04/11/22 18:11 04/11/22 18:15 04/11/22 18:21 Temperature 97.8 F 97.8 F Temperature Source Temporal Temporal Pulse Rate 93 89 Respiratory Rate 30 H 30 H Respiratory Effort Short of Breath Respiratory Pattern Tachypnea Blood Pressure 170/134 H 170/134 H Blood Pressure Mean 146 146 Pulse Ox 98 99 Oxygen Delivery Method Nasal Cannula Nasal Cannula Nasal Cannula Oxygen Flow Rate (L/min) 4 4 4 04/11/22 18:23 04/11/22 20:18 Temperature Temperature Source Pulse Rate 91 79 Respiratory Rate 20 H 19 H Respiratory Effort Respiratory Pattern Blood Pressure 178/56 H 176/61 H Blood Pressure Mean 96 99 Pulse Ox 99 96 Oxygen Delivery Method Nasal Cannula Nasal Cannula Oxygen Flow Rate (L/min) 4 4 Positive well nourished, well developed and obese General Appearance ED: well developed, NAD and pallor; Negative for cyanotic or diaphoretic Nutritional Appearance: obese HEENT Reports moist mucous membranes HEENT Narrative: Patient is hard of hearing. Ears normal. Nares patent. Mucosa is moist. Uvula is midline. There is no oral edema or exudate the posterior pharynx. Eyes PERRL and EOMs intact bilaterally General Eye ED: Negative for pale conjunctiva or scleral icterus Neck no lymphadenopathy, supple and no JVD Neck Narrative: Trachea is midline. There is Tory expiratory stridor. Chest Wall inspection of chest normal and palpation of chest normal Resp normal respiratory effort and No clear to auscultation bilaterally Auscultation: rales bilateral 1/2 way up Cardio regular rate, regular rhythm, S1 normal heart sound, S2 normal heart sound and no murmurs GI normal to inspection, nondistended, normoactive bowel sounds, non-tender, non-distended and hepatosplenomegaly Back/Spine no CVA tenderness Back/Spine Narrative: Inspection of the back is unremarkable Extremity Extremity Narrative: Minimal edema of the feet and legs General Extremety ED: Yes edema; Negative for tenderness General Extremity: edema Neuro oriented x3, CN's II-XII intact bilaterally and no sensory deficits noted Sensorium / Orientation: alert Psych mental status grossly normal Skin no rashes or lesions noted, no wounds and skin turgor normal General Skin Exam: pallor; Negative for elasticity normal or jaundice MDM MDM MDM Narrative Medical decision making narrative: Cyst duct patient's dyspnea is due to heart failure due to noncompliance. Because he is elderly and has history of diabetes and minimal coronary disease will obtain troponin as well as BNP. EKG to rule out acute ischemia. Chest x-ray toconfirm diagnosis of congestive heart failure. Since he has no complaint of fever, cough doubt pneumonia. Recent cardiac cath was reviewed and there is no significant disease. Lab Data Attestation: I reviewed the patient's lab results. Lab results narrative: Patient is anemic. His anemia is worse than prior lab results. Basic metabolicpanel reveals elevated creatinine. His creatinine has improved and he will be due to the fact that he stopped taking his Lasix. BNP is elevated at 311. Troponin is 25 which is normal. This is with days of symptoms and was not repeated. Labs: Laboratory Results - last 24 hr 04/11/22 04/11/22 04/11/22 18:25 18:25 18:25 WBC 4.6 RBC 3.31 L Hgb 9.8 L Hct 31.9 L MCV 96.4 H MCH 29.6 MCHC 30.7 L RDW Std Deviation 48.2 H RDW Coeff of John 13.6 Plt Count 108 L MPV 11.2 Immature Gran % (Auto) 0.200 Neut % (Auto) 66.7 Lymph % (Auto) 22.4 [place] % (Auto) 6.0 Eos % (Auto) 4.3 Baso % (Auto) 0.4 Absolute Neuts (auto) 3.1 Absolute Lymphs (auto) 1.04 Nucleated RBC % 0 Sodium 145 Potassium 4.7 Chloride 110 H Carbon Dioxide 30.0 Anion Gap 5 BUN 25 H Creatinine 1.41 H Estim Creat Clear Calc 35.14 Est GFR (MDRD) Af Amer 62 Est GFR (MDRD) Non-Af 51 L BUN/Creatinine Ratio 17.7 Glucose 160 H Calcium 9.1 Troponin I High Sens 25 B-Natriuretic Peptide 311.3 H Radiography Chest X-Ray - ED: 1 View and Read by ED Physician (Single view chest x-ray reveals bilateral effusion and findings consistent with congestive heart failure. This is unchanged from chest x-ray that was obtained March 12.) Diagnostic Testing: Clinical Impression(s) from Imaging Studies Chest X-Ray 04/11/22 19:13 IMPRESSION: Bilateral effusions with bibasilar opacity which may represent atelectasis or pneumonia. There has been minimal change from the reference exam. Electronically Signed: Manuel Her MD at 19:44 EST , EKG Initial EKG: Attestation: I personally reviewed and interpreted this EKG as follows: Interpretation: Sinus Rhythm (Sinus rhythm with a ventricular rate of 83 and first-degree AV block. WA interval 218 ms. QRS duration 80 ms. QT duration 256 ms. Cecil is normal. There is no acute ischemic changes noted) Treatment and Re-Evaluation Narrative: Patient did receive Lasix. Patient has not had any output. Patient has conversational dyspnea. He is now breathing 30 times a minute. Patient was told Lasix is not causing his shortness of breath or shortness of breath becausehe is not taking his Lasix. Discharge Plan Triage Chief Complaint: Shortness of Breath ED Provider: Dusty Yan Dx/Rx/DC Orders Clinical Impression: Acute exacerbation of CHF (congestive heart failure), HLD (hyperlipidemia), Bilateral pleural effusion, Renal insufficiency, Essential hypertension, Mild left ventricular hypertrophy, Nonrheumatic aortic (valve) stenosis, Chronic respiratory failure with hypoxia, History of CAD (coronary artery disease) Prescriptions: No Action atorvastatin 80 mg tablet 80 mg PO DAILY Label Comments: TAKE 1 TABLET BY MOUTH ONCE DAILY ipratropium-albuterol 0.5 mg-3 mg(2.5 mg base)/3 mL solution for nebulization 3 ml inhalation 4X/DAY PRN (Reason: sob) Label Comments: inhale contents of 1 vial ( 3 milliliters ) in nebulizer by mouth... (REFER TO PRESCRIPTION NOTES). liothyronine 25 mcg tablet 25 mcg PO DAILY Label Comments: TAKE 1 TABLET BY MOUTH ONCE DAILY FOR 90 DAYS metformin 1,000 mg tablet 500 mg PO BID glimepiride 4 mg tablet 4 mg PO DAILY Label Comments: TAKE 1 TABLET BY MOUTH ONCE DAILY Spiriva with HandiHaler 18 mcg capsule, w/inhalation device 18 mcg INHALATION DAILY Label Comments: INHALE THE CONTENTS OF 1 CAPSULE TWICE EACH TIME VIA HANDIHALER ONCE DAILY cholecalciferol (vitamin D3) 25 mcg (1,000 unit) Capsule 25 mcg PO DAILY omega-3 fatty acids-vitamin E 1,000 mg Capsule 2 cap PO BID PreserVision AREDS [id number] Capsule 1 cap PO BID lisinopril [Zestril] 20 mg tablet 20 mg PO DAILY Hold Instructions: Resume on 03/18/22. baclofen 10 mg tablet 10 mg PO TID PRN PRN (Reason: Muscle Spasm) Label Comments: TAKE 1 TABLET BY MOUTH THREE TIMES DAILY NEEDED FOR MUSCLE SPASMS carvedilol 6.25 mg Tablet 6.25 mg PO BID Qty: 60 0RF aspirin 81 mg Tablet,Chewable 81 mg PO DAILY@0800 Qty: 30 0RF torsemide 10 mg tablet 10 mg PO DAILY Qty: 1 0RF Primary Care Provider: Talya Nichols Referrals: Talya Nichols DO [Primary Care Provider] - Disposition Disposition: Acute Care Hospital [facility] What to do if you have Problems For any increased pain, shortness of breath, bleeding, nausea or vomiting, chestpain, or any unexpected problems, contact your Primary Care Provider. Call [facility] ([phone]) or report to the closest Emergency Room. Call 911 if necessary. 04/11/222042 <Electronically signed by Dusty Yan MD> Cosigner Signature (if applicable): CC: Dr. Talya Nichols, DO ~ Signed [facility] Work Phone: [phone]) 644-276502-12-2022 Hospital Discharge instructions Patient Education 04/23/2021 16:15:50 DYSPNEA Shortness of Breath (Dyspnea) Shortness of breath is the feeling that you can't catch your breath or can't get enough air. It is also known as dyspnea. Dyspnea can be caused by many different conditions. Here are some: Acute asthma attack Worsening of COPD, chronic bronchitis, or emphysema Congestive heart failure, or CHF. This is a weak heart muscle allows extra fluid to collect in the lungs. Panic attacks or anxiety. Fear can cause rapid breathing (hyperventilation). Pneumonia, or an infection in the lung tissue. Exposure to toxic substances, fumes, smoke, or certain medicines Blood clot in the lung (pulmonary embolus) Heart attack or angina Anemia Collapsed lung (pneumothorax) Dehydration Based on your visit today, the exact cause of your shortness of breath is not certain. Your tests don t show any of the serious causes of dyspnea. You may need other tests to find out if you have a serious problem. It s important to watch for any new symptoms or symptoms that get worse. Follow up with your doctor as directed. Home care Follow these tips to take care of yourself at home: When your symptoms are better, go back to your usual activities. If you smoke, you need to stop. Join a stop-smoking program or ask your doctor for help. Eat a healthy diet and get plenty of sleep. Get regular exercise. But talk with your doctor before starting to exercise, especially if you haveother medical problems. Cut down on the amount of caffeine and stimulants you have. Follow-up care Follow up with your health care provider. If a culture was done, you will be told if your treatment needs to be changed. You can call in 2 to3 days, or as directed, for the results. If X-rays were taken, and a radiologist did not see them while you were here, they will be reviewed. You will be told if there is a change in the reading, especially if it affects your treatment. When to call 911 Call 911 if any of these occur: You have trouble breathing You feel confused or it s difficult to wake you You faint or lose consciousness You have a rapid heart rate New pain in your chest, arm, shoulder, neck, or upper back When to seek medical advice Call your health care provider right away if any of these occur: Shortness of breath or wheezing that gets worse Redness, pain or swelling in one leg Swelling in both legs or ankles Unexpected weight gain Chest, arm, shoulder, neck, or upper back pain Dizziness or weakness The sense that your heart is fluttering, or beating fast or hard (palpitations) Fever of 100.4 F (38 C) or higher, or as directed by your health care provider Cough with dark-colored or bloody sputum (mucus) [id number] [employer]. [address] [place] [address]. All rights reserved. This information is not intended as a substitute for professional medical care. Always follow yourhealthcare professional's instructions. Follow Up Care 04/23/2021 13:41:51 With:TALYA NICHOLS DO Address: [phone] When:2-4 days [facility] Discharge summary Author Dr. Anders [facility] May 26, 2022 10:19am Note Date/Time May 26, 2022 10: 16am [facility] Medical Records Department [address] [place] [address] Instructions for Home/Discharge Instructions 05/26/22 1014 MR#: [id number] Acct: [id number] Name: BEULAH BRIGHT Rep #:[id number] : 1940 81 From: John foster MD PCP: Dr. Talya Nichols, DO Status:ADM PAWEL Discharge Instructions Diet Discharge Diet: Low fat / Low cholesterol and 6 Cup Fluid Restriction Activity Discharge Activity: Return to Normal Activity Dressing / Incision Call your doctor if you observe: Fever of 101 or Higher, Shortness of breath, Dizziness, Fainting spells, Swelling in the ankles, Chest pain and Increased palpitations (irregular heartbeat) Follow Up Care Test Results: Test results from this visit will be discussed in further detail at your follow- up appointment, if applicable. Discharge Plan Admission Admit Date/Time: 05/24/22 15:59 Attending Provider: John Anders Primary Care Provider: Talya Nichols Consulting Providers: Jennifer Pardo Instructions Additional Instructions / Restrictions: Follow-up with your PCP in 3 to 5 days to monitor renal function. Given how many times you have been admitted for volume overload I would recommend loweringyour lisinopril dose to protect your kidneys instead of lowering the Lasix dose. Discharge Orders/Prescriptions Prescriptions: New azithromycin 250 mg Tablet 500 mg PO Q24 Qty: 2 0RF cefdinir 300 mg Capsule 300 mg PO Q12 Qty: 9 0RF Continued amlodipine 5 mg tablet 5 mg PO DAILY Qty: 90 3RF atorvastatin 80 mg tablet 80 mg PO DAILY Label Comments: TAKE 1 TABLET BY MOUTH ONCE DAILY ipratropium-albuterol 0.5 mg-3 mg(2.5 mg base)/3 mL solution for nebulization 3 ml inhalation 4X/DAY PRN (Reason: sob) Label Comments: inhale contents of 1 vial ( 3 milliliters ) in nebulizer by mouth... (REFER TO PRESCRIPTION NOTES). liothyronine 25 mcg tablet 25 mcg PO DAILY Label Comments: TAKE 1 TABLET BY MOUTH ONCE DAILY FOR 90 DAYS Spiriva with HandiHaler 18 mcg capsule, w/inhalation device 18 mcg INHALATION DAILY Label Comments: INHALE THE CONTENTS OF 1 CAPSULE TWICE EACH TIME VIA HANDIHALER ONCE DAILY cholecalciferol (vitamin D3) 25 mcg (1,000 unit) Capsule 25 mcg PO DAILY omega-3 fatty acids-vitamin E 1,000 mg Capsule 2 cap PO BID PreserVision AREDS [id number] [id number] Capsule 1 cap PO BID lisinopril [Zestril] 20 mg tablet 20 mg PO DAILY Hold Instructions: Resume on 03/18/22. carvedilol 6.25 mg tablet 6.25 mg PO BID aspirin 81 mg tablet,chewable 81 mg PO DAILY@0800 metformin 500 mg tablet 500 mg PO BID Label Comments: take 1 tablet by mouth twice a day glimepiride 2 mg tablet 2 mg PO DAILY Label Comments: take 1 tablet by mouth once daily WITH FIRST MEAL OF THE DAY Changed furosemide [Lasix] 40 mg tablet 40 mg PO DAILY Qty: 1 0RF Referrals / Follow Up: Talya Nichols, [Primary Care Provider] - Within 1 Week Disposition Disposition (needs filled in before D/C Order can be placed): Home, Self Care 05/26/22 1019<Electronically signed by John Anders MD>John Anders MD CC: Dr. Talya Nichols DO; Dr. Jennifer Pardo MD ~ Signed [facility] Work Phone: Discharge summary Author John Anders [facility] April 26, 2023 3:53pm Note Date/Time April 26, 2023 3:30pm [facility] Medical Records Department [address] [place] [address] Instructions for Home/Discharge Instructions 04/26/23 1529 MR#: [id number] Acct: [id number] Name: BEULAH BRIGHT Rep #:[id number] : 1940 82 From: John foster MD PCP: Dr. Talya Nichols DO Status:ADM IN Discharge Instructions Diet Discharge Diet: Low fat / Low cholesterol and 6 Cup Fluid Restriction Activity Discharge Activity: Return to Normal Activity Dressing / Incision Call your doctor if you observe: Fever of 101 or Higher, Shortness of breath, Dizziness, Fainting spells, Swelling in the ankles, Chest pain and Increased palpitations (irregular heartbeat) Follow Up Care Test Results: Test results from this visit will be discussed in further detail at your follow- up appointment, if applicable. Discharge Plan Admission Admit Date/Time: 04/24/23 19:41 Attending Provider: John Anders Primary Care Provider: Talya Nichols Consulting Providers: Michelle Washburn; Trell Kendrick Instructions Additional Instructions / Restrictions: You will need to follow-up with your PCP early next week for blood work to monitor your renal function as well as your blood sugars as you were started on Jardiance which is a diabetic medication that helps with your heart failure. Wealso placed you on spironolactone as well as bumetanide which are diuretics to help keep fluid off of your heart is much as possible. We also recommend restarting her Coreg to control your blood pressure and your heart rate. Discharge Orders/Prescriptions Prescriptions: New carvedilol 6.25 mg Tablet 6.25 mg PO BIDCM 30 Days Qty: 60 0RF Jardiance 10 mg Tablet 10 mg PO DAILY 30 Days Qty: 30 0RF spironolactone 25 mg Tablet 25 mg PO DAILY 30 Days Qty: 30 0RF bumetanide 2 mg tablet 2 mg PO DAILY Qty: 30 0RF Continued atorvastatin 80 mg tablet 80 mg PO DAILY ipratropium-albuterol 0.5 mg-3 mg(2.5 mg base)/3 mL solution for nebulization 3 ml inhalation 4X/DAY PRN (Reason: sob) Patient Comments: inhale contents of 1 vial ( 3 milliliters ) in nebulizer by mouth... (REFER TO PRESCRIPTION NOTES). liothyronine 25 mcg tablet 25 mcg PO DAILY Patient Comments: TAKE 1 TABLET BY MOUTH ONCE DAILY FOR 90 DAYS tiotropium bromide [Spiriva with HandiHaler] 18 mcg capsule, w/inhalation device 18 mcg INHALATION DAILY Patient Comments: INHALE THE CONTENTS OF 1 CAPSULE TWICE EACH TIME VIA HANDIHALER ONCE DAILY cholecalciferol (vitamin D3) 25 mcg (1,000 unit) Capsule 25 mcg PO DAILY omega-3 fatty acids-vitamin E 1,000 mg Capsule 2 cap PO BID PreserVision AREDS [id number] Capsule 1 cap PO BID lisinopril [Zestril] 20 mg tablet 10 mg PO DAILY Hold Instructions: Resume on 03/18/22. pantoprazole [Protonix] 40 mg tablet,delayed release (DR/EC) 40 mg PO BID 90 Days Qty: 180 0RF sucralfate [Carafate] 1 gram tablet 1 g PO BID 30 Days Qty: 60 2RF Rx Instructions: Start BID administration after TID administration for 30 days has been completed. sucralfate 1 gram tablet 1 g PO TID 30 Days Qty: 90 0RF Rx Instructions: Start BID administration after 30 days of TID administration Held glimepiride 2 mg tablet 2 mg PO DAILY Qty: 3 0RF Hold Instructions: Resume on 05/04/23. Patient Comments: take 1 tablet by mouth once daily WITH FIRST MEAL OF THE DAY Rx Instructions: Hold if glucose less than 130 mg/dl Referrals / Follow Up: Talya Nichols DO [Primary Care Provider] - 05/04/23 10:00 am (You have lab orders waiting for you at [facility] to be done on sunday or Sunday) Disposition Disposition (needs filled in before D/C Order can be placed): Home, Self Care 04/26/23 1553<Electronically signed by John Anders MD>John Anders MD CC: Dr. Michelle Washburn DO; Dr. Talya Nichols DO; Dr. Trell Kendrick MD ~ Signed [facility] Work Phone: Discharge summary Author John Anders [facility] April 26, 2023 4:09pm Note Date/Time April 26, 2023 4:09pm [facility] Medical Records Department [address] [place] [address] Discharge Summary 04/26/23 1603 MR#: [id number] Acct: [id number] Name: BEULAH BRIGHT Rep #:[id number] : 1940 82 From: John foster MD PCP: Dr. Talya Nichols DO Status:ADM IN Location: [place] [address] Providers Date of Admission: 04/24/23 Primary Care Physician: Dr. Talya Nichols DO Consultations 04/25/23 07:00 Consult: Cardiology Routine Consulting Provider: Trell Kendrick Reason for Consult: CHF exacerbation EMERGENT Consult: No MD Notified: Yes Date Notified: 04/25/23 Time Notified: 06:27 Method of Notification: Text Reason For Visit: ACUTE HYPOXIA 2/2 ACUTE ON CHRONIC HEART FAILURE Diagnosis Discharge Diagnosis (1) Acute on chronic heart failure with preserved ejection fraction (HFpEF): Status: Acute Code(s): I50.33 - Acute on chronic diastolic (congestive) heart failure (2) Renal insufficiency: Status: Chronic Code(s): N28.9 - Disorder of kidney and ureter, unspecified (3) Nonrheumatic aortic (valve) stenosis: Status: Chronic Code(s): I35.0 - Nonrheumatic aortic (valve) stenosis (4) Essential hypertension: Status: Chronic Code(s): I10 - Essential (primary) hypertension (5) Anemia: Status: Chronic Code(s): D64.9 - Anemia, unspecified Qualifiers: Anemia type: iron deficiency Iron deficiency anemia type: other iron deficiency Qualified Code(s): D50.8 - Other iron deficiency anemias Medications at Discharge Home Medications atorvastatin 80 mg tablet 80 mg PO DAILY CHOLESTEROL 05/02/21 cholecalciferol (vitamin D3) 25 mcg (1,000 unit) capsule 25 mcg PO DAILY [id number]/22 ipratropium 0.5 mg-albuterol 3 mg (2.5 mg base)/3 mL nebulization soln 3 ml inhalation 4X/DAY PRN sob 05/02/21 liothyronine 25 mcg tablet 25 mcg PO DAILY THYROID 05/02/21 omega-3 fatty acids-vitamin E 1,000 mg capsule 2 cap PO BID SUPPLEMENT 05/02/21 tiotropium bromide 18 mcg capsule with inhalation device (Spiriva with HandiHaler) 18 mcg inhalation DAILY SOB 05/02/21 vitamins A,C,F-jggr-swmdzo 4,296 mcg-226 mg-90 mg capsule (PreserVision AREDS) 1cap PO BID vitamin 12/13/21 lisinopril 20 mg tablet (Zestril) 10 mg PO DAILY blood pressure 03/12/22 glimepiride 2 mg tablet 2 mg PO DAILY DM #3 tabs 03/09/23 pantoprazole 40 mg tablet,delayed release (Protonix) 40 mg PO BID 90 days #180 tabs 03/09/23 sucralfate 1 gram tablet 1 g PO TID 30 days #90 tabs 03/23/23 sucralfate 1 gram tablet (Carafate) 1 g PO BID 30 days #60 tabs 03/23/23 bumetanide 2 mg tablet 2 mg PO DAILY #30 tabs 04/26/23 carvedilol 6.25 mg tablet 6.25 mg PO BIDCM 30 days #60 tabs 04/26/23 empagliflozin 10 mg tablet (Jardiance) 10 mg PO DAILY 30 days #30 tabs 04/26/23 spironolactone 25 mg tablet 25 mg PO DAILY 30 days #30 tabs 04/26/23 Hospital Course Operations None Procedures None Summary of Care Provided Minutes Spent on Discharge: 35 Hospital Course: Per HPI: BEULAH ZHOUCOREYBlade, is a 82 M [facility] complaining of shortness of breath. Patient stated his shortness of breath had started today after he walked out of his nephrology office appointment. He stated he was barely able to make at homeand then decided to come the emergency department because he was so short of breath. He indicated he was fine before that. He typically sleeps in a recliner and has been doing so for 6 years as he was taking care of his whowas in hospice. She has since been . He indicates he had multiple hospitalizations since somebody took him off his torsemide and replaced it with Lasix. He feels that the Lasix does not work as well. I did ask him why they took him off his torsemide he stated it was because it gave him gout. He reported recently his primary care physician instructed him to take 3 tablets ofLasix a day but this did not work either. He did not notice any increased urinary output with the increased dose of Lasix. He is not sure if he is gainedweight as he is not able to see the numbers on his scale anymore. He denies anyworsening swelling and again he sleeps in a recliner so he does not complain anyparoxysmal nocturnal dyspnea or orthopnea. He is on chronic oxygen at 2 L and is compliant with this. He states he does not have a known history of sleep apnea. He had a recent echocardiogram done in February 2023 that demonstrated mild concentric LVH, left ventricular EF of 65% with moderate diffuse aortic valve calcification and moderate aortic stenosis with mild aortic valve insufficiency. Vital signs on presentation showed a temperature of 98.7, heart rate 113, blood pressure was 175/65, respiratory rate was 22 and oxygen saturations were 95% on 4 L nasal cannula. I do not have an oxygen saturation on his baseline of 2 L. His CBC shows a normal white count with a stable anemia having a hemoglobin of 9.3 and chronic thrombocytopenia with a platelet count of 103,000 which is his baseline. He has a minimal left shift with a 76.7% neutrophilia. His chemistrypanel shows chronic stable renal dysfunction having a BUN of 43 and a serum creatinine of 2.0. Serum glucose was 200. Troponin was 47 and his BNP was 143.1. Given his obesity his BNP is likely higher when adjusted for his weight. Chest x-ray is consistent with bilateral congestion and prominence in the interstitium. EKG shows first-degree heart block with a prolonged WA interval, normal QT interval with mild tachycardia and no ST-T wave changes concerning foracute ischemia. He was given IV Lasix 40 mg x 1 dose in the emergency department and request foradmission was made. As noted the patient is concerned that his Lasix is not working so I will transition to Bumex and give another 2 mg at the time of admission. Hospital Course: 1. Acute on chronic hypoxia secondary to acute on chronic diastolic CHF with elevated troponin secondary to demand ischemia/HTN/HLD?82-year-old male with a history of diastolic CHF presents to the hospital with increased shortness of breath. Had to have extensive discussion with him on his tendency to change hismedications without notifying his doctor, there is been several instances where he is either decrease the dose or discontinue the medication on his own. We hadan extensive discussion his this is an appropriate as it leads to significant confusion between his healthcare team as to what he is actually taking and also discussed with him that sometimes what he feels is not a medication side effect but could be a sign of a different disease that he is ignoring because he is not seeking medical help at that time. Cardiology was consulted for his elevated troponin they felt it was due to demand ischemia given his heart failure. We did place him on Bumex 2 mg IV twice daily and he was also started on Jardiance as his GFR was greater than 20 and Aldactone and Coreg. I will hold his glimepiride on discharge given the addition of Jardianceand I discussed with his PCP on the day of discharge his lab work today which did show a slight increase in his creatinine though not abnormal from his baseline significantly and he does have lab work already ordered by his PCP to be obtained at an outside hospital. He does have an appointment on 05/04/2023 with his primary care doctor. Given his slight increase in his creatinine I also elected to change his Bumex to just 2 mg p.o. daily. I do recommend close outpatient monitoring with cardiology as well as nephrology. I discussed with him the plan for discharge today expressed understanding of the risk benefits going home and is okay with going home today. 2. Type 2 diabetes, chronic anemia, chronic thrombocytopenia, hypothyroidism, GI bleeding are all chronic medical conditions which complicate his care. His home medications were continued where appropriate Physical Exam Narrative General: Alert, Oriented x3, Cooperative, No apparent distress HEENT: Atraumatic, PERRLA, EOMI, Normocephalic Oral: Moist Mucosa Neck: Supple, No JVD Lungs: Diminished, Normal air movement, No rhonchi, No wheeze, mild bilateral crackles Cardiovascular: Regular rate, Regular Rhythm, Normal S1, Normal S2, No murmurs Abdomen: Soft, Non Tender, Non-Distended, No Hepato-splenomegaly Extremities: Trace edema, Capillary Refill Less than 3 Seconds Skin: No rashes, No breakdown Musculoskeletal: No Tenderness to Palpation of Joints or Extremities Neurological: No focal neurological deficits, Motor Exam 5/5 strength throughout, Sensory exam intact to light touch and pain Psych/Mental Status: Normal Affect, Appropriate Weight / BMI Weight Weight: 190 lb 0.615 oz Body Mass Index (BMI) 31.6 ABG / Lab / Microbiology Data 04/26/23 07:15 04/26/23 07:15 Laboratory: Laboratory Results - last 24 hr 04/25/23 16:22: POC Glucose 128 H 04/25/23 22:30: POC Glucose 157 H 04/26/23 06:11: POC Glucose 119 H 04/26/23 07:15: WBC 5.7, RBC 3.42 L, Hgb 9.4 L, Hct 30.2 L, MCV 88.3, MCH 27.5, MCHC 31.1 L, RDW Std Deviation 46.8 H, RDW Coeff of John 14.6, Plt Count 123 L, MPV 11.7, Immature Gran % (Auto) 0.200, Neut % (Auto) 59.6, Lymph % (Auto) 24.7,[place] % (Auto) 8.8, Eos % (Auto) 6.0 H, Baso % (Auto) 0.7, Absolute Neuts (auto) 3.4, Absolute Lymphs (auto) 1.40, Nucleated RBC % 0, Sodium 142, Potassium 3.8, Chloride 101, Carbon Dioxide 31.0, Anion Gap 10, BUN 58 H, Creatinine 2.43 H, Estim Creat Clear Calc 23.25, Est GFR (MDRD) Af Amer 33 L, Est GFR (MDRD) Non-Af27 L, BUN/Creatinine Ratio 23.9 H, Glucose 129 H, Calcium 9.9 04/26/23 11:06: POC Glucose 209 H Microbiology: Microbiology 04/24/23 16:54 Mucosa - Nasopharyngeal SARS-CoV-2, Influenza & RSV (PCR) - Final D/C Instructions Discharge Diet: Low fat / Low cholesterol and 6 Cup Fluid Restriction Call your doctor if you observe: Fever of 101 or Higher, Shortness of breath, Dizziness, Fainting spells, Swelling in the ankles, Chest pain and Increased palpitations (irregular heartbeat) Meaningful Use Info Meaningful Use Diagnoses (Choose all that apply): None applicable Discharge Plan Admission Admit Date/Time: 04/24/23 19:41 Attending Provider: John Anders Primary Care Provider: Talya Nichols Consulting Providers: Michelle Washburn; Trell Kendrick Instructions Additional Instructions / Restrictions: You will need to follow-up with your PCP early next week for blood work to monitor your renal function as well as your blood sugars as you were started on Jardiance which is a diabetic medication that helps with your heart failure. Wealso placed you on spironolactone as well as bumetanide which are diuretics to help keep fluid off of your heart is much as possible. We also recommend restarting her Coreg to control your blood pressure and your heart rate. Discharge Orders/Prescriptions Prescriptions: New carvedilol 6.25 mg Tablet 6.25 mg PO BIDCM 30 Days Qty: 60 0RF Jardiance 10 mg Tablet 10 mg PO DAILY 30 Days Qty: 30 0RF spironolactone 25 mg Tablet 25 mg PO DAILY 30 Days Qty: 30 0RF bumetanide 2 mg tablet 2 mg PO DAILY Qty: 30 0RF Continued atorvastatin 80 mg tablet 80 mg PO DAILY ipratropium-albuterol 0.5 mg-3 mg(2.5 mg base)/3 mL solution for nebulization 3 ml inhalation 4X/DAY PRN (Reason: sob) Patient Comments: inhale contents of 1 vial ( 3 milliliters ) in nebulizer by mouth... (REFER TO PRESCRIPTION NOTES). liothyronine 25 mcg tablet 25 mcg PO DAILY Patient Comments: TAKE 1 TABLET BY MOUTH ONCE DAILY FOR 90 DAYS tiotropium bromide [Spiriva with HandiHaler] 18 mcg capsule, w/inhalation device 18 mcg INHALATION DAILY Patient Comments: INHALE THE CONTENTS OF 1 CAPSULE TWICE EACH TIME VIA HANDIHALER ONCE DAILY cholecalciferol (vitamin D3) 25 mcg (1,000 unit) Capsule 25 mcg PO DAILY omega-3 fatty acids-vitamin E 1,000 mg Capsule 2 cap PO BID PreserVision AREDS 14,320-226-200 [id number] Capsule 1 cap PO BID lisinopril [Zestril] 20 mg tablet 10 mg PO DAILY Hold Instructions: Resume on 03/18/22. pantoprazole [Protonix] 40 mg tablet,delayed release (DR/EC) 40 mg PO BID 90 Days Qty: 180 0RF sucralfate [Carafate] 1 gram tablet 1 g PO BID 30 Days Qty: 60 2RF Rx Instructions: Start BID administration after TID administration for 30 days has been completed. sucralfate 1 gram tablet 1 g PO TID 30 Days Qty: 90 0RF Rx Instructions: Start BID administration after 30 days of TID administration Held glimepiride 2 mg tablet 2 mg PO DAILY Qty: 3 0RF Hold Instructions: Resume on 05/04/23. Patient Comments: take 1 tablet by mouth once daily WITH FIRST MEAL OF THE DAY Rx Instructions: Hold if glucose less than 130 mg/dl Referrals / Follow Up: Talya Nichols DO [Primary Care Provider] - 05/04/23 10:00 am (You have lab orders waiting for you at [facility] to be done on sunday or Sunday) Disposition Disposition (needs filled in before D/C Order can be placed): Home, Self Care Charges/Coding Visit Charges Inpatient E&M: 50443 Disch Hosp >30min 04/26/23 1609 <Electronically signed by John Anders MD> Cosigner Signature (if applicable): CC: Dr. Talya Nichols DO; Dr. John Anders MD~ Signed [facility] Work Phone: Evaluation + Plan note Future Appointments Appointment Date:07/06/2021 02:00:00 PM Scheduled Provider:TALYA NICHOLS DO Location:[facility] Appointment Type:PC OV Follow Up Future Scheduled Tests Laboratory* Thyroid Stimulating Hormone 06/28/21 * A1C Hemoglobin 06/28/21 * Lipid Profile 06/28/21 * Vitamin D Level 06/28/21 * Complete Metabolic Panel 06/28/21 [facility] Evaluation + Plan note Future Appointments Appointment Date:01/12/2022 11:30:00 AM Scheduled Provider:TALYA NICHOLS DO Location:[facility] Appointment Type:PC OV [facility] Evaluation + Plan note Future Appointments Appointment Date:01/17/2022 01:30:00 PM Scheduled Provider:TALYA NICHOLS DO Location:[facility] Appointment Type: OV [facility] Evaluation + Plan note Future Appointments Appointment Date:04/25/2022 02:00:00 PM Scheduled Provider:TALYA NICHOLS DO Location:[facility] Appointment Type: OV [facility] Evaluation + Plan note Future Appointments Appointment Date:07/25/2022 02:00:00 PM Scheduled Provider:TALYA NICHOLS DO Location:[facility] Appointment Type: OV Future Scheduled Tests Laboratory* Complete Blood Count 06/09/22 * Microalbumin Level Urine 04/25/22 * Complete Metabolic Panel 05/12/22 * Complete Metabolic Panel 06/09/22 * N-Terminal proBNP 05/12/22 * N-Terminal proBNP 06/09/22 [facility] Evaluation + Plan note Future Appointments Appointment Date:07/25/2022 02:00:00 PM Scheduled Provider:TALYA NIHCOLS DO Location:[facility] Appointment Type: OV Future Scheduled Tests Laboratory* Complete Blood Count 06/16/22 * Microalbumin Level Urine 04/25/22 * Complete Metabolic Panel 05/12/22 * Complete Metabolic Panel 06/16/22 * N-Terminal proBNP 05/12/22 * N-Terminal proBNP 06/16/22 [facility] Evaluation + Plan note Future Appointments Appointment Date:07/25/2022 02:00:00 PM Scheduled Provider:TALYA NICHOLS DO Location:[facility] Appointment Type:PC OV Future Scheduled Tests Laboratory* Microalbumin Level Urine 04/25/22 * Complete Metabolic Panel 05/12/22 * N-Terminal proBNP 05/12/22 [facility] Evaluation + Plan note Future Appointments Appointment Date:10/25/2022 04:30:00 PM Scheduled Provider:TALYA NICHOLS DO Location:[facility] Appointment Type:PC OV ED Follow Up Appointment Date:11/10/2022 11:30:00 AM Scheduled Provider:TALYA NICHOLS DO Location:[facility] Appointment Type:PC OV Appointment Date:11/16/2022 10:30:00 AM Scheduled Provider:TALYA NICHOLS DO Location:[facility] Appointment Type:PC OV Future Scheduled Tests Laboratory* Microalbumin Level Urine 04/25/22 * Complete Metabolic Panel 05/12/22 * N-Terminal proBNP 05/12/22 [facility] Evaluation + Plan note Future Appointments Appointment Date:11/10/2022 11:30:00 AM Scheduled Provider:TALYA NICHOLS DO Location:[facility] Appointment Type:PC OV Appointment Date:11/15/2022 09:30:00 AM Scheduled Provider: Location:[facility] Appointment Type:CV OV Future Scheduled Tests Laboratory* Microalbumin Level Urine 04/25/22 * Complete Metabolic Panel 05/12/22 * N-Terminal proBNP 05/12/22 [facility] Evaluation + Plan note Future Appointments Appointment Date:11/28/2022 10:00:00 AM Scheduled Provider: Location:[facility] Appointment Type:CV Procedure - AOH Echo Appointment Date:01/19/2023 11:30:00 AM Scheduled Provider:TALYA NICHOLS DO Location:[facility] Appointment Type:PC OV Diagnostic Tests Pending * Renin, Plasma 11/24/22 Future Scheduled Tests Laboratory* Microalbumin Level Urine 04/25/22 * Complete Metabolic Panel 05/12/22 [facility] Evaluation + Plan note Future Appointments Appointment Date:11/30/2022 09:20:00 AM Scheduled Provider:MELONIE BULLARD APRN, CNP Location:[facility] Appointment Type:PC OV Appointment Date:01/19/2023 11:30:00 AM Scheduled Provider:TALYA NICHOLS DO Location:[facility] Appointment Type:PC OV Future Scheduled Tests Laboratory* Microalbumin Level Urine 04/25/22 * Complete Metabolic Panel 05/12/22 [facility] Evaluation + Plan note Future Appointments Appointment Date:02/09/2023 02:45:00 PM Scheduled Provider: Location:[facility] Appointment Type:CV OV Appointment Date:03/02/2023 08:30:00 AM Scheduled Provider:TALYA NICHOLS DO Location:[facility] Appointment Type:PC OV Future Scheduled Tests Laboratory* Complete Blood Count 01/19/23 * Microalbumin Level Urine 04/25/22 * Complete Metabolic Panel 01/19/23 * Complete Metabolic Panel 05/12/22 [facility] Evaluation + Plan note Future Appointments Appointment Date:02/09/2023 02:45:00 PM Scheduled Provider: Location:[facility] Appointment Type:CV OV Appointment Date:03/02/2023 08:30:00 AM Scheduled Provider:TALYA NICHOLS DO Location:[facility] Appointment Type:PC OV Future Scheduled Tests Laboratory* Basic Metabolic Panel 02/02/23 * Complete Blood Count 02/02/23 [facility] Evaluation + Plan note Future Appointments Appointment Date:02/09/2023 02:45:00 PM Scheduled Provider: Location:[facility] Appointment Type:CV OV Appointment Date:03/02/2023 08:30:00 AM Scheduled Provider:TALYA NICHOLS DO Location:[facility] Appointment Type:PC OV [facility] Evaluation + Plan note Future Appointments Appointment Date:02/23/2023 11:00:00 AM Scheduled Provider:TALYA NICHOLS DO Location:[facility] Appointment Type:PC OV TCM 30 Appointment Date:03/02/2023 08:30:00 AM Scheduled Provider:TALYA NICHOLS DO Location:[facility] Appointment Type:PC OV Future Scheduled Tests Laboratory* Basic Metabolic Panel 02/08/23 * Complete Blood Count 02/08/23 [facility] Evaluation + Plan note Future Appointments Appointment Date:03/02/2023 08:30:00 AM Scheduled Provider:TALYA NICHOLS DO Location:[facility] Appointment Type:PC OV Future Scheduled Tests Laboratory* Basic Metabolic Panel 02/08/23 * Complete Blood Count 02/08/23 [facility] Evaluation + Plan note Future Appointments Appointment Date:04/13/2023 01:30:00 PM Scheduled Provider:TALYA NICHOLS DO Location:[facility] Appointment Type:PC OV Future Scheduled Tests Laboratory* Basic Metabolic Panel 02/08/23 * Thyroid Stimulating Hormone 04/11/23 * Complete Blood Count 03/02/23 * Complete Blood Count 03/09/23 * Complete Blood Count 03/16/23 * Complete Blood Count 03/23/23 * Complete Blood Count 03/30/23 * Complete Blood Count 04/06/23 * Complete Blood Count 04/13/23 * Complete Blood Count 04/20/23 * Complete Blood Count 04/27/23 * Complete Blood Count 05/04/23 * Complete Blood Count 05/11/23 * Complete Blood Count 05/18/23 * Complete Blood Count 05/25/23 * Complete Blood Count 04/11/23 * Complete Blood Count 02/08/23 * Complete Metabolic Panel 04/11/23 [facility] evaluation + Plan note Future Appointments Appointment Date:05/11/2023 12:30:00 PM Scheduled Provider:TALYA NICHOLS DO Location:[facility] Appointment Type:PC OV Future Scheduled Tests Laboratory* Basic Metabolic Panel 02/08/23 * Thyroid Stimulating Hormone 04/11/23 * Complete Blood Count 03/02/23 * Complete Blood Count 03/09/23 * Complete Blood Count 03/16/23 * Complete Blood Count 03/23/23 * Complete Blood Count 03/30/23 * Complete Blood Count 04/06/23 * Complete Blood Count 04/13/23 * Complete Blood Count 04/20/23 * Complete Blood Count 04/27/23 * Complete Blood Count 05/04/23 * Complete Blood Count 05/11/23 * Complete Blood Count 05/18/23 * Complete Blood Count 05/25/23 * Complete Blood Count 04/11/23 * Complete Blood Count 02/08/23 * Complete Blood Count 04/13/23 * Complete Metabolic Panel 04/11/23 * Complete Metabolic Panel 04/13/23 * N-Terminal proBNP 04/13/23 [facility] Evaluation + Plan note Future Appointments Appointment Date:06/19/2023 11:00:00 AM Scheduled Provider:TALYA NICHOLS DO Location:[facility] Appointment Type:PC OV Future Scheduled Tests Laboratory* Basic Metabolic Panel 02/08/23 * Thyroid Stimulating Hormone 04/11/23 * Complete Blood Count 03/02/23 * Complete Blood Count 03/09/23 * Complete Blood Count 03/16/23 * Complete Blood Count 03/23/23 * Complete Blood Count 03/30/23 * Complete Blood Count 04/06/23 * Complete Blood Count 04/13/23 * Complete Blood Count 04/20/23 * Complete Blood Count 04/27/23 * Complete Blood Count 05/04/23 * Complete Blood Count 05/11/23 * Complete Blood Count 05/25/23 * Complete Blood Count 04/11/23 * Complete Blood Count 05/11/23 * Complete Blood Count 02/08/23 * Complete Blood Count 05/17/23 * Complete Blood Count 04/13/23 * Complete Metabolic Panel 04/11/23 * Complete Metabolic Panel 05/17/23 * Complete Metabolic Panel 04/13/23 * N-Terminal proBNP 05/17/23 * N-Terminal proBNP 04/13/23 [facility] Evaluation + Plan note Future Appointments Appointment Date:06/19/2023 11:00:00 AM Scheduled Provider:TALYA NICHOLS DO Location:[facility] Appointment Type:PC OV Future Scheduled Tests Laboratory* Basic Metabolic Panel 02/08/23 * Thyroid Stimulating Hormone 04/11/23 * Complete Blood Count 03/02/23 * Complete Blood Count 03/09/23 * Complete Blood Count 03/16/23 * Complete Blood Count 03/23/23 * Complete Blood Count 03/30/23 * Complete Blood Count 04/06/23 * Complete Blood Count 04/13/23 * Complete Blood Count 04/20/23 * Complete Blood Count 04/27/23 * Complete Blood Count 05/04/23 * Complete Blood Count 05/11/23 * Complete Blood Count 04/11/23 * Complete Blood Count 05/11/23 * Complete Blood Count 02/08/23 * Complete Blood Count 05/17/23 * Complete Blood Count 04/13/23 * Complete Metabolic Panel 04/11/23 * Complete Metabolic Panel 04/13/23 * N-Terminal proBNP 04/13/23 [facility] Evaluation + Plan note Future Appointments Appointment Date:06/19/2023 11:00:00 AM Scheduled Provider:TALYA NICHOLS DO Location:[facility] Appointment Type:PC OV Future Scheduled Tests Laboratory* Pathology Flow Cytometry Request 05/25/23 * Basic Metabolic Panel 02/08/23 * Basic Metabolic Panel 05/25/23 * Thyroid Stimulating Hormone 04/11/23 * Complete Blood Count 03/02/23 * Complete Blood Count 03/09/23 * Complete Blood Count 03/16/23 * Complete Blood Count 03/23/23 * Complete Blood Count 03/30/23 * Complete Blood Count 04/06/23 * Complete Blood Count 04/13/23 * Complete Blood Count 04/20/23 * Complete Blood Count 04/27/23 * Complete Blood Count 05/04/23 * Complete Blood Count 05/11/23 * Complete Blood Count 04/11/23 * Complete Blood Count 05/11/23 * Complete Blood Count 02/08/23 * Complete Blood Count 05/17/23 * Complete Blood Count 04/13/23 * Complete Blood Count 05/25/23 * Reticulocytes - Panel 05/25/23 * Complete Metabolic Panel 04/11/23 * Complete Metabolic Panel 04/13/23 * N-Terminal proBNP 04/13/23 [facility] Evaluation + Plan note Future Appointments Appointment Date:06/11/2023 11:00:00 AM Scheduled Provider:TALYA NICHOLS DO Location:[facility] Appointment Type:PC OV Future Scheduled Tests Laboratory* Pathology Flow Cytometry Request 05/25/23 * Basic Metabolic Panel 02/08/23 * Basic Metabolic Panel 05/25/23 * Thyroid Stimulating Hormone 04/11/23 * Complete Blood Count 03/02/23 * Complete Blood Count 03/09/23 * Complete Blood Count 03/16/23 * Complete Blood Count 03/23/23 * Complete Blood Count 03/30/23 * Complete Blood Count 04/06/23 * Complete Blood Count 04/13/23 * Complete Blood Count 04/20/23 * Complete Blood Count 04/27/23 * Complete Blood Count 05/04/23 * Complete Blood Count 05/11/23 * Complete Blood Count 04/11/23 * Complete Blood Count 05/11/23 * Complete Blood Count 02/08/23 * Complete Blood Count 05/17/23 * Complete Blood Count 04/13/23 * Complete Blood Count 05/25/23 * Reticulocytes - Panel 05/25/23 * Complete Metabolic Panel 04/11/23 * Complete Metabolic Panel 04/13/23 * N-Terminal proBNP 04/13/23 [facility] Evaluation + Plan note Future Appointments Appointment Date:08/28/2023 02:00:00 PM Scheduled Provider:TALYA NICHOLS DO Location:[facility] Appointment Type:PC OV Future Scheduled Tests Laboratory* Pathology Flow Cytometry Request 05/25/23 * Basic Metabolic Panel 09/16/23 * Basic Metabolic Panel 02/08/23 * Basic Metabolic Panel 05/25/23 * Thyroid Stimulating Hormone 04/11/23 * Complete Blood Count 03/02/23 * Complete Blood Count 03/09/23 * Complete Blood Count 03/16/23 * Complete Blood Count 03/23/23 * Complete Blood Count 03/30/23 * Complete Blood Count 04/06/23 * Complete Blood Count 04/13/23 * Complete Blood Count 04/20/23 * Complete Blood Count 04/27/23 * Complete Blood Count 05/04/23 * Complete Blood Count 05/11/23 * Complete Blood Count 04/11/23 * Complete Blood Count 05/11/23 * Complete Blood Count 02/08/23 * Complete Blood Count 05/17/23 * Complete Blood Count 04/13/23 * Complete Blood Count 05/25/23 * Complete Metabolic Panel 04/11/23 * Complete Metabolic Panel 04/13/23 [facility] evaluation noteNo assessment information available [facility] Work Phone: evaluation note* Diagnosis Onset Date Resolution Status Debility acute Dehydration acute Polyarthralgia acute Acute on chronic renal insufficiency chronic COPD (chronic obstructive pulmonary disease) [facility] Work Phone: evaluation note* Diagnosis Onset Date Resolution Status Acute on chronic renal insufficiency resolved Dehydration resolved Acute CHF (congestive heart failure) acute Aortic valve stenosis, acquired acute Bilateral pleural effusion a cute CAD (coronary artery disease) acute Cardiac murmur acute Elevated troponin acute HLD (hyperlipidemia) acute Hypoxemia acute Non-ST elevation (NSTEMI) myocardial infarction acute Renal insufficiency acute COPD (chronic obstructive pulmonary disease) chronic HTN (hypertension) [facility] Work Phone: Evaluation note* Diagnosis Onset Date Resolution Status Acute on chronic renal insufficiency resolved Dehydration resolved Acute CHF (congestive heart failure) acute Bilateral pleural effusion a cute Cardiac murmur acute Elevated troponin acute HLD (hyperlipidemia) acute Hypoxemia acute Non-ST elevation (NSTEMI) myocardial infarction acute Renal insufficiency acute COPD (chronic obstructive pulmonary disease) chronic Bilateral pleural effusion a cute Essential hypertension acute History of CAD (coronary artery disease) acute HLD (hyperlipidemia) acute Mild left ventricular hypertrophy acute Nonrheumatic aortic (valve) stenosis acute Renal insufficiency acute Acute and chronic respiratory failure with hypoxia chronic Acute exacerbation of CHF (congestive heart failure) chronic [facility] Work Phone: evaluation note* Diagnosis Onset Date Resolution Status Acute CHF (congestive heart failure) acute Bilateral pleural effusion a cute Cardiac murmur acute Elevated troponin acute HLD (hyperlipidemia) acute Hypoxemia acute Non-ST elevation (NSTEMI) myocardial infarction acute Renal insufficiency acute COPD (chronic obstructive pulmonary disease) chronic Bilateral pleural effusion a cute Essential hypertension acute History of CAD (coronary artery disease) acute HLD (hyperlipidemia) acute Mild left ventricular hypertrophy acute Nonrheumatic aortic (valve) stenosis acute Renal insufficiency acute Acute and chronic respiratory failure with hypoxia chronic Acute exacerbation of CHF (congestive heart failure) chronic [facility] Work Phone: Evaluation note* Diagnosis Onset Date Resolution Status Bilateral pleural effusion a cute Cardiac murmur acute Elevated troponin acute Hypoxemia acute Non-ST elevation (NSTEMI) myocardial infarction acute COPD (chronic obstructive pulmonary disease) chronic HLD (hyperlipidemia) chronic Renal insufficiency chronic Acute CHF (congestive heart failure) resolved Bilateral pleural effusion a cute History of CAD (coronary artery disease) acute Mild left ventricular hypertrophy acute Acute and chronic respiratory failure with hypoxia chronic Essential hypertension chron ic HLD (hyperlipidemia) chronic Nonrheumatic aortic (valve) stenosis chronic Renal insufficiency chronic Atherosclerotic heart diseas e of [place] coronary artery without angina pectoris acute Diastolic CHF acute Essential hypertension chron ic HLD (hyperlipidemia) chronic Nonrheumatic aortic (valve) stenosis chronic Renal insufficiency chronic CHF (congestive heart failure) acute History of CAD (coronary artery disease) acute [facility] Work Phone: Evaluation note* Diagnosis Onset Date Resolution Status Atherosclerotic heart diseas e of [place] coronary artery without angina pectoris acute Diastolic CHF acute Essential hypertension chron ic HLD (hyperlipidemia) chronic Nonrheumatic aortic (valve) stenosis chronic Renal insufficiency chronic [facility] Work Phone: Evaluation note* Diagnosis Onset Date Resolution Status Anemia acute GI bleed acute [facility] Work Phone: Evaluation note* Diagnosis Onset Date Resolution Status Anemia resolved GI bleed resolved [facility] Work Phone: Evaluation note* Diagnosis Onset Date Resolution Status Anemia resolved GI bleed resolved Acute bronchospasm acute Acute exacerbation of chroni c obstructive pulmonary disease (COPD) [facility] Work Phone: Evaluation note* Diagnosis Onset Date Resolution Status Anemia resolved GI bleed resolved Acute bronchospasm acute Near syncope acute Acute exacerbation of chroni c obstructive pulmonary disease (COPD) [facility] Work Phone: Evaluation note* Diagnosis Onset Date Resolution Status Anemia chronic GI bleed resolved Near syncope resolved Anemia chronic Acute upper gastrointestinal bleeding acute Symptomatic anemia acute Acute on chronic blood loss anemia chronic COPD (chronic obstructive pulmonary disease) chronic [facility] Work Phone: Evaluation note* Diagnosis Onset Date Resolution Status Anemia chronic GI bleed resolved Near syncope resolved Anemia chronic Acute upper gastrointestinal bleeding acute Symptomatic anemia acute Acute on chronic blood loss anemia chronic Anemia chronic COPD (chronic obstructive pulmonary disease) chronic GI bleed resolved [facility] Work Phone: Evaluation note* Diagnosis Onset Date Resolution Status Near syncope resolved Anemia chronic Acute upper gastrointestinal bleeding acute Anemia chronic COPD (chronic obstructive pulmonary disease) chronic Acute on chronic blood loss anemia resolved GI bleed resolved Acute upper gastrointestinal bleeding acute [facility] Work Phone: Evaluation note* Diagnosis Onset Date Resolution Status Near syncope resolved Anemia chronic Acute upper gastrointestinal bleeding acute Anemia chronic COPD (chronic obstructive pulmonary disease) chronic Acute on chronic blood loss anemia resolved GI bleed resolved Acute upper gastrointestinal bleeding acute Anemia chronic [facility] Work Phone: Evaluation note* Diagnosis Onset Date Resolution Status Near syncope resolved Anemia chronic Acute upper gastrointestinal bleeding acute Anemia chronic COPD (chronic obstructive pulmonary disease) chronic Acute on chronic blood loss anemia resolved GI bleed resolved Acute upper gastrointestinal bleeding acute Anemia chronic Acute dyspnea acute Acute on chronic heart failu re with preserved ejection fraction (HFpEF) acute Atherosclerotic heart diseas e of [place] coronary artery without angina pectoris acute Carotid artery stenosis acut e Elevated brain natriuretic peptide (BNP) level acute Elevated troponin acute Hypoxia acute Anemia chronic Essential hypertension chron ic HLD (hyperlipidemia) chronic Nonrheumatic aortic (valve) stenosis chronic Renal insufficiency chronic [facility] Work Phone: Evaluation note* Diagnosis Onset Date Resolution Status Near syncope resolved Anemia chronic Acute upper gastrointestinal bleeding acute Anemia chronic COPD (chronic obstructive pulmonary disease) chronic Acute on chronic blood loss anemia resolved GI bleed resolved Acute upper gastrointestinal bleeding acute Anemia chronic Acute dyspnea acute Atherosclerotic heart diseas e of [place] coronary artery without angina pectoris acute Carotid artery stenosis acut e Elevated brain natriuretic peptide (BNP) level acute Elevated troponin acute Hypoxia acute Anemia chronic Essential hypertension chron ic HLD (hyperlipidemia) chronic Nonrheumatic aortic (valve) stenosis chronic Renal insufficiency chronic Acute on chronic heart failu re with preserved ejection fraction (HFpEF) resolved [facility] Work Phone: Evaluation note* Diagnosis Onset Date Resolution Status Acute upper gastrointestinal bleeding acute Anemia chronic COPD (chronic obstructive pulmonary disease) chronic Acute on chronic blood loss anemia resolved GI bleed resolved Acute upper gastrointestinal bleeding acute Anemia chronic Acute dyspnea acute Atherosclerotic heart diseas e of [place] coronary artery without angina pectoris acute Carotid artery stenosis acut e Elevated brain natriuretic peptide (BNP) level acute Elevated troponin acute Hypoxia acute Anemia chronic Essential hypertension chron ic HLD (hyperlipidemia) chronic Nonrheumatic aortic (valve) stenosis chronic Renal insufficiency chronic Acute on chronic heart failu re with preserved ejection fraction (HFpEF) resolved [facility] Work Phone: History and physical note Author Dr. Pardo [facility] May 24, 2022 4:24pm Note Date/Time May 24, 2022 4:1 5pm [facility] Medical Records Department [address] [place] [address] H&P Exam - Hospitalist 05/24/22 1559 MR#: [id number] Acct: [id number] Name: BEULAH BRIGHT Rep #:[id number] : 1940 81 From: Jennifer Pardo MD PCP: Dr. Talya Nichols, DO Status:ADM PAWEL Location: [place] [address] HPI - General General Date of Admission: 05/24/22 Date of Service: 05/24/22 Chief Complaint: SOB HPI Narrative BEULAH BRIGHT, is a 81 M with a history of heart failure, COPD on 2 L home O2,coronary artery disease, and hypertension who presented to [facility] 05/24/2022 with shortness of breath for several hours. He had been taking his friend to the dentist and he was sitting in his car on his 2 L of O2 and then progressively became more short of breath and increased his O2 and called EMS. He presented to the ED and was noted to have what appeared to be some edema on his chest x-ray, BNP mildly elevated but does have signs and symptoms of congestive heart failure with a noted recent decrease in his Lasix dose. In the ED had hemoglobin of 9.7, BUN 45 with a creatinine of 1.47, troponin of 31 that increased to 56 though technically both were considered within normal limits based on the reference range, and BNP 200 with variable BNP's in the past. Given 1 dose of IV Lasix in the ED. Heart rate 90s, tachypneic from 20s to 30s, 96% on 2 L. And variable blood pressure from systolic of 193-146. Hospitalist consulted for admission. Patient reports thatsince he was taken off of his hydrochlorothiazide due to gout 3 to 4 months ago he has had increasing shortness of breath that did worsen today when he was in the car and did not respond to increasing oxygen, reportedly had recently decreased his Lasix by his PCP. Is also had some phlegm with cough for the past1.5 weeks but did not have the significant increase shortness of breath until today. Reports this is similar to other CHF exacerbations he has had. Was given IV Lasix in the ED and reports he is already starting to feel better now that he has been off. Did not have any other significant complaints, denied swelling in his extremities. [facility] Medical History Acute exacerbation of CHF (congestive heart failure) Aortic valve stenosis, acquired Atherosclerotic heart disease of [place] coronary artery without angina pectoris CAD (coronary artery disease) Chronic respiratory failure with hypoxia COPD (chronic obstructive pulmonary disease) Debility Diabetes mellitus, type 2 Former tobacco use History of left heart catheterization (LHC) (~03/15/22) HLD (hyperlipidemia) HTN (hypertension) Hypothyroidism Mild left ventricular hypertrophy Nonrheumatic aortic (valve) stenosis Obesity Polyarthralgia Home Medications atorvastatin 80 mg tablet 80 mg PO DAILY CHOLESTEROL 05/02/21 [History Last Taken 05/23/22] cholecalciferol (vitamin D3) 25 mcg (1,000 unit) capsule 25 mcg PO DAILY [id number]/21/22 [History Last Taken 05/24/22] ipratropium 0.5 mg-albuterol 3 mg (2.5 mg base)/3 mL nebulization soln 3 ml inhalation 4X/DAY PRN sob 05/02/21 [History Last Taken 05/23/22] liothyronine 25 mcg tablet 25 mcg PO DAILY THYROID 05/02/21 [History Last Taken 05/24/22] omega-3 fatty acids-vitamin E 1,000 mg capsule 2 cap PO BID SUPPLEMENT 05/02/21 [History Last Taken 05/24/22] tiotropium bromide 18 mcg capsule with inhalation device (Spiriva with HandiHaler) 18 mcg inhalation DAILY SOB 05/02/21 [History Last Taken 05/24/22] vitamins A,C,T-dfwl-dfxhlf 4,296 mcg-226 mg-90 mg capsule (PreserVision AREDS) 1cap PO BID vitamin 12/13/21 [History Last Taken 05/24/22] lisinopril 20 mg tablet (Zestril) 20 mg PO DAILY blood pressure 03/12/22 [History Last Taken 05/24/22] aspirin 81 mg chewable tablet 81 mg PO DAILY@0800 anticoagulant 04/12/22 [History Last Taken 05/24/22] carvedilol 6.25 mg tablet 6.25 mg PO BID blood pressure 04/12/22 [History Last Taken 05/24/22] amlodipine 5 mg tablet 5 mg PO DAILY #90 tabs 05/02/22 [Rx Last Taken 05/24/22] furosemide 40 mg tablet (Lasix) 20 mg PO DAILY 05/24/22 [History Last Taken 05/24/22] glimepiride 2 mg tablet 2 mg PO DAILY DM 05/24/22 [History Last Taken 05/24/22] metformin 500 mg tablet 500 mg PO BID DM 05/24/22 [History Last Taken 05/24/22] Allergy/AdvReac Type Severity Reaction Status Date / Time codeine AdvReac Upset Verified 05/24/22 11:08 Stomach Family History Mother CVA (cerebral vascular accident) Heart disease Myocardial infarction Hx of CABG Hypertension Father CVA (cerebral vascular accident) Heart disease Surgical History S/P cataract extraction Social History household members: none housing: house Smoking Status: Former smoker how long ago did patient quit smoking: Quit 2011, prior 1 ppd since teen. alcohol intake: former year quit: 2010 substance use type: does not use ROS ROS Narrative General: Denies fever/chills HENT: Denies headache, slight nasal congestion, denies sore throat EYES: Denies changes in vision Resp: Some cough for a week and a half, shortness of breath Cardiac: Denies chest pain GI: Denies abdominal pain, denies changes in bowel, denies nausea/vomiting : Denies changes in urination Extremity: Denies swelling MSK: Denies weakness Neuro: Denies any numbness/tingling Heme: Denies any bleeding or bruising Skin: Denies rashes Psychiatric: No complaints voiced Vital Signs Vital Signs Vital Signs: 05/24/22 11:08 05/24/22 11:14 05/24/22 11:16 Temperature 99.6 F H Temperature Source Temporal Pulse Rate 105 H 106 H Respiratory Rate 36 H 36 H Respiratory Effort Short of Breath Labored Respiratory Pattern Tachypnea Blood Pressure 193/64 H Blood Pressure Mean 107 Pulse Ox 100 99 Oxygen Delivery Method Nasal Cannula Nasal Cannula Oxygen Flow Rate (L/min) 4 3 05/24/22 12:22 05/24/22 13:01 05/24/22 14:05 Temperature Temperature Source Pulse Rate 101 H 100 97 Respiratory Rate 28 H 26 H 26 H Respiratory Effort Respiratory Pattern Blood Pressure 146/81 H 148/61 H 175/60 H Blood Pressure Mean 102 90 98 Pulse Ox 96 96 99 Oxygen Delivery Method Nasal Cannula Room Air Nasal Cannula Oxygen Flow Rate (L/min) 3 3 05/24/22 15:22 05/24/22 15:22 Temperature Temperature Source Pulse Rate 92 93 Respiratory Rate 28 H 28 H Respiratory Effort Respiratory Pattern Blood Pressure 184/53 H 184/53 H Blood Pressure Mean 96 96 Pulse Ox 96 96 Oxygen Delivery Method Nasal Cannula Nasal Cannula Oxygen Flow Rate (L/min) 2 3 Weight Weight: 90.265 kg Body Mass Index (BMI) 33.1 Physical Exam Narrative General: Alert, oriented HEENT: Atraumatic, normocephalic Eyes: Anicteric, normal conjunctiva, extraocular movements grossly intact Neck: Supple Respiratory: Diminished at the sounds, somewhat tachypneic, conversationally dyspneic Cardiovascular: Regular rate and rhythm GI: Soft, nontender, nondistended Extremities: No edema, but has compression stockings on Musculoskeletal: Moving all extremities Neuro: No overt focal neurological deficits Skin: No rashes appreciated Psych: Cooperative Results Lab / Micro Data Result Diagrams: 05/24/22 11:19 05/24/22 11:19 Labs: Laboratory Results - last 24 hr 05/24/22 11:19: WBC 10.4, RBC 3.21 L, Hgb 9.7 L, Hct 30.9 L, MCV 96.3 H, MCH 30.2, MCHC 31.4 L, RDW Std Deviation 45.9 H, RDW Coeff of John 13.3, Plt Count 123 L, MPV 10.8, Immature Gran % (Auto) 0.300, Neut % (Auto) 80.1 H, Lymph % (Auto) 10.9 L, [place] % (Auto) 5.4, Eos % (Auto) 2.9, Baso % (Auto) 0.4, Absolute Neuts (auto) 8.4 H, Absolute Lymphs (auto) 1.14, Nucleated RBC % 0 05/24/22 11:19: Sodium 144, Potassium 4.3, Chloride 106, Carbon Dioxide 32.0, Anion Gap 6, BUN 45 H, Creatinine 1.47 H, Estim Creat Clear Calc 33.70, Est GFR (MDRD) Af Amer 59 L, Est GFR (MDRD) Non-Af 49 L, BUN/Creatinine Ratio 30.6 H, Glucose 178 H, Calcium 9.5, Troponin I High Sens 31 05/24/22 11:19: B-Natriuretic Peptide 200.1 H 05/24/22 14:10: Troponin I High Sens 56 Radiology Impression Chest X-Ray 05/24/22 11:55 IMPRESSION: Residual or recurrent pneumonia of the lower lobes of both lungs. Electronically Signed: Yogesh Stokes MD at 12:39 EDT Reading Location ID and State: [address] [place] [address] Tel , Service support , Assessment & Plan Assessment/Plan (1) CHF (congestive heart failure): (2) History of CAD (coronary artery disease): PLAN: Plan #Acute exacerbation of chronic heart failure -BNP mildly elevated at 200 but chest x-ray suggestive of edema and had recent decrease in Lasix dose - milligram another 40 IV Lasix and then 40 IV Lasix daily -Daily weights, I's and O's -Echo 03/13/2022 with an EF of 65%, RVSP unable to estimate and diastolic dysfunction indeterminate but has documented heart failure, suspect diastolic. Given recent echocardiogram will not repeat -Fluid restriction #Chronic hypoxic respiratory failure secondary to COPD on 2 L home O2 -Will give nebs and as needed albuterol -We will check COVID and respiratory panel given significant wheezing and could have mixed picture as he has had increasing cough with some phlegm for 1 and half weeks, will start Mucinex -Incentive spirometry #Hypertension -Continue home beta-greta, lisinopril, amlodipine #Type 2 diabetes mellitus -Hold oral hypoglycemics -Sliding scale and glucose checks #CKD stage IIIb -Appears to be roughly baseline -Avoid nephrotoxic agents #History of coronary artery disease -Recent left heart cath 03/15/2022 with no new intervention -Continue aspirin and statin until beta-greta #Rising troponin -First troponin 31 with second 56, EKG with QTc 423 and normal sinus rhythm, ST nonspecific but no chest pain -Do not suspect ACS, will check another troponin to verify it levels off though if NSTEMI would highly suspect type II #DVT ppx: Heparin subcu Jennifer Pardo MD Time spent in the patient's overall evaluation,decision-making process, review of diagnostic data, adjustment of management, discussion with other providers, nursing nursing and ancillary staff involved in patient's care documentation, 60minutes Charges/Coding Visit Charges Inpatient E&M: 82610 Init Hosp L2 05/24/22 1624 <Electronically signed by Jennifer Pardo MD> Cosigner Signature (if applicable): CC: Dr. Talya Nichols DO; Dr. Jennifer Pardo MD~ Signed [facility] Work Phone: History and physical note Author Fredy Joy [facility] April 02, 2023 10:43am Note Date/Time April 02, 2023 9 :51am [facility] Medical Records Department [address] [place] [address] History & Physical Exam 04/02/23 0951 MR#: [id number] Acct: [id number] Name: BEULAH BRIGHT Rep #:[id number] : 1940 82 From: Fredy Joy DO PCP: Dr. Talya Nichols DO [place] [facility] [place] [address] History and Physical Date of Admission: 04/02/23 82-year-old patient with COPD presents by EMS for shortness of breath got worse today. He states he has been resting today and not doing anything in particularother than walking around the house, he thinks the context of this worsening seemay be to be conversation. There was no other obvious trigger for this getting worse but it was not sudden. Denies any chest discomfort. Denies any worsening edema in his legs. He has been on Lasix and compliant with that but he is on another diuretic because he states he has issues with his kidneys. He started having a cough andrunny diarrhea today. In March 2022 for non-ST elevated myocardial infarction, acute congestive heart failure, hypertension, and hyperlipidemia. He had an echocardiogram that showed ejection fraction of 65%, mild concentric LVH, and mild aortic valve stenosis. He underwent a heart catheterization on 03/15/2022 that showed left main with 25% stenosis, LAD with mild luminal irregularities, diagonal 1 with 50% stenosis, LCx with mild luminal irregularities, and RCA with mild luminal irregularities. Medical therapy was recommended. He was diuresed and discharged home. He returned to the Emergency Department with ongoing shortness of breath. He was admitted and diuresed. He also has a past medical history of COPD, diabetes mellitus type 2, and hypothyroidism. Vitals in the ED were temp of 98.1F, WA of 99, BP of 132/64, RR of 22 and he wassaturating at 97% on 2L of oxygen. CBC shwoed hb of 6.4, wbc of 5.7, platelets of 124; chemistry showed sodium of 139, potassium of 5.1, Cr of 2.91 and BNP wasonly 50.7. COVID test was negative and CXR showed no acute cardiopulmonary process. He denied any recent history of dark stools, and is on aspirin. He has no history of over the counter pain meds. I saw him previously couple months ago for acute blood loss anemia. 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 [facility] Medical History Acute and chronic respiratory failure with hypoxia Aortic valve stenosis, acquired Atherosclerotic heart disease of [place] coronary artery without angina pectoris CAD (coronary artery disease) Chronic respiratory failure with hypoxia COPD (chronic obstructive pulmonary disease) Diabetes Diabetes mellitus, type 2 Diastolic CHF Former smoker Former tobacco use History of CAD (coronary artery disease) History of left heart catheterization (LHC) (~03/15/22) HLD (hyperlipidemia) HTN (hypertension) Hypertension Hypothyroidism Kidney disease Mild left ventricular hypertrophy Myocardial infarct Nonrheumatic aortic (valve) stenosis Obesity On home oxygen therapy Polyarthralgia TIA (transient ischemic attack) Home Medications atorvastatin 80 mg tablet 80 mg PO DAILY CHOLESTEROL 05/02/21 [History Last Taken 02/14/23] cholecalciferol (vitamin D3) 25 mcg (1,000 unit) capsule 25 mcg PO DAILY vitamin 05/02/21 [History Last Taken 02/15/23] ipratropium 0.5 mg-albuterol 3 mg (2.5 mg base)/3 mL nebulization soln 3 ml inhalation 4X/DAY PRN sob 05/02/21 [History Last Taken 02/15/23] liothyronine 25 mcg tablet 25 mcg PO DAILY THYROID 05/02/21 [History Last Taken 02/15/23] omega-3 fatty acids-vitamin E 1,000 mg capsule 2 cap PO BID SUPPLEMENT 05/02/21 [History Last Taken 02/15/23] tiotropium bromide 18 mcg capsule with inhalation device (Spiriva with HandiHaler) 18 mcg inhalation DAILY SOB 05/02/21 [History Last Taken 02/15/23] vitamins A,C,V-hhjx-jtcejq 4,296 mcg-226 mg-90 mg capsule (PreserVision AREDS) 1 cap PO BID vitamin 12/13/21 [History Last Taken 02/15/23] lisinopril 20 mg tablet (Zestril) 10 mg PO DAILY blood pressure 03/12/22 [History Last Taken 02/15/23] glimepiride 2 mg tablet 2 mg PO DAILY DM 05/24/22 [History Last Taken 02/15/23] furosemide 40 mg tablet (Lasix) 40 mg PO DAILY diuretic #90 tabs 07/06/22 [Rx Last Taken 02/15/23] empagliflozin 25 mg tablet (Jardiance) 10 mg PO DAILY dm 11/16/22 [History Last Taken 02/15/23] pantoprazole 40 mg tablet,delayed release (Protonix) 40 mg PO BID 12 weeks #168 tabs 11/18/22 [Rx Last Taken 02/15/23] sucralfate 1 gram tablet 1 g PO Q6H 8 weeks #224 tabs 11/18/22 [Rx Last Taken 02/15/23] Allergy/AdvReac Type Severity Reaction Status Date / Time codeine AdvReac Upset Verified 03/07/23 18:27 Stomach Family History Mother CVA (cerebral vascular accident) Heart disease Myocardial infarction Hx of CABG HypertensionFather CVA (cerebral vascular accident) Heart disease Surgical History S/P cataract extraction Social History household members: none housing: house Smoking Status: Former smoker how long ago did patient quit smoking: Quit 2010, prior 1 ppd since teen. alcohol intake: former year quit: 2010 substance use type: does not use ROS Constitutional Constitutional: Denies chills, fatigue, fever(s) or weakness Eyes Eyes: Denies change in vision Cardiovascular Cardiovascular: Reports dyspnea on exertion; Denies chest pain, edema, lightheadedness, palpitations or rapid heart rate Respiratory/Chest Respiratory/Chest: Denies cough, shortness of breath at rest or wheezing Gastrointestinal Gastrointestinal: Reports melena; Denies abdominal pain, constipation, diarrhea,nausea or vomiting Genitourinary Genitourinary: Denies dysuria Musculoskeletal Musculoskeletal: Denies arthralgias or back pain Neurologic Neurologic: Denies dizziness, focal weakness or headache(s) Physical Exam Narrative Seen and examined. Patient admitted with loose watery stool with dark color for 2 to 3 days. Denies nausea or vomiting. Dyspnea on exertion. Patient had endoscopy/EGD recently. Denies abdominal pain Physical exam General: Alert, Oriented x3, Cooperative HEENT: Atraumatic, PERRLA, EOMI, Normocephalic Oral: No Gingival or Mucosal Lesions/ Ulcerations Neck: Supple, No JVD, Negative Carotid Bruits Lungs: Air entry diminished in bilateral lung bases. No crepitation/rhonchi. Mild dyspnea on exertion Cardiovascular: Regular rate, Regular Rhythm, Normal S1, Normal S2, No murmurs Abdomen: Bowel Sounds Present, Soft, Non Tender, Non-Distended : No renal angle tenderness. No suprapubic tenderness. Extremities: No edema, Capillary Refill Less than 3 Seconds Skin: No rashes, No breakdown Musculoskeletal: No Tenderness to Palpation of Joints or Extremities Neurological: Cranial nerves II-XII grossly intact, DTR 2+/4. No acute focal neurological deficit. Psych/Mental Status: Flat affect. Lab / Micro Data 03/08/23 05:30 03/07/23 18:23 Labs: Laboratory Results - last 24 hr 03/07/23 18:23: WBC 4.0 L, RBC 2.70 L, Hgb 7.5 L, Hct 24.5 L, MCV 90.7, MCH 27. 8, MCHC 30.6 L, RDW Std Deviation 55.5 H, RDW Coeff of John 17.1 H, Plt Count 107L, MPV 11.9, Immature Gran % (Auto) 0.200, Neut % (Auto) 63.7, Lymph % (Auto) 25.2, [place] % (Auto) 8.2, Eos % (Auto) 2.5, Baso % (Auto) 0.2, Absolute Neuts (auto) 2.6, Absolute Lymphs (auto) 1.02, Nucleated RBC % 0, Sodium 143, Potassium 4.2, Chloride 107, Carbon Dioxide 29.0, Anion Gap 7, BUN 77 H, Creatinine 2.67 H, Estim Creat Clear Calc 18.24, Est GFR (MDRD) Af Amer 30 L, Est GFR (MDRD) Non-Af 24 L, BUN/Creatinine Ratio 28.8 H, Glucose 223 H, Calcium 9.1, Troponin I High Sens 34, B-Natriuretic Peptide 78.3 03/07/23 21:08: Blood Type A NEGATIVE, Antibody Screen NEGATIVE, Crossmatch See Detail 03/08/23 05:30: WBC 3.9 L, RBC 3.02 L, Hgb 8.2 L, Hct 26.5 L, MCV 87.7, MCH 27.2, MCHC 30.9 L, RDW Std Deviation 54.2 H, RDW Coeff of John 17.2 H, Plt Count 80 L, MPV 10.9, Differential Comment SCANNED Micro: Microbiology 03/07/23 19:50 Stool Stool Occult Blood (CLARY) - Final Occult Blood Positive 03/07/23 18:51 Nasal Secretion SARS-CoV-2 & FLU Antigen (Rapid) - Final Rhythm Strip Rhythm Strip: Sinus Tach Rate: 104 Ectopy: None Imagaing Radiology Impression Chest X-Ray 03/07/23 19:26 IMPRESSION: Poor inspiration with some bibasilar atelectasis. Electronically Signed: Melonie Garcia MD at 19:54 EST , Assessment & Plan Assessment/Plan (1) Acute upper gastrointestinal bleeding: PLAN: 82-year-old male who presented to [facility] ED on 03/07/2023 with worsening shortness of breath on exertion and intermittent dark stools. 1. Acute on chronic anemia, suspected recurrent upper GI bleed Follows with Dr. Joy, last office visit on 02/21/23. Previous EGD on 11/17/2022 shows bleeding AVM of the stomach which was treated with heater probe, Many nonbleeding superficial gastric ulcers, many nonbleeding duodenal ulcers H.pylori negative. GI consulted. Hemoglobin slight drop from 7.9 on 02/15 to 7.5on 03/07. Stool occult blood positive in ED. most recently 8.2. Platelet count80,000. Mild leukopenia. Plan for EGD today. On IV PPI. 03/09: Patient had EGD yesterday as described below. Patient had loose bowel movement yesterday night. Although stool studies for enteric bacteriology panel, C. difficile and Giardia were ordered is not collected but patient did not have any loose bowel movement or diarrhea since yesterday night. No abdominal pain. He wants to go home. He feels back to baseline. Patient is discharged sucralfate for 1 more month and PPI 40 mg twice daily. Impression: - Mena's esophagus. - Small hiatal hernia. - Oozing gastric ulcers with pigmented material. Injected. Treated with a heater probe. - Gastritis. Biopsied. - Duodenitis. Biopsied. Recommendation: - Use sucralfate tablets 1 gram PO QID. - Continue present medications. - EGD with capsule endoscopy to look for other signs of GI bleeding I have examined the patient and the H&P has been reviewed. There are no clinicalchanges since date of exam. 04/02/23 7030 <Electronically signed by Fredy Joy DO> Cosigner Signature (if applicable): CC: Dr. Talya Nichols DO; Fredy Joy DO~ Signed ADDENDUM by Fredy Joy DO on 04/02/23 at 1043 Addendum We will be doing an upper endoscopy with capsule placement because the patient cannot swallow pills and has a history of esophageal dysphagia. 04/02/23 1043<Electronically signed by Fredy Joy DO> Cosigner Signature (if applicable): cc: Dr. Talya Nichols DO; Fredy Joy DO ~* Signed [facility] Work Phone: History and physical note Author Tracy Angel [facility] Note Date/Time June 23, 2024 5:5 4pm [facility] Medical Records Department [address] [place] [address] H&P Exam - Hospitalist 06/23/24 1734 MR#: [id number] Acct: [id number] Name: BEULAH BRIGHT Rep #:[id number] : 1940 84 From: Tracy Angel MD PCP: Dr. Yuridia Hernandez MD Status:ADM I N Location: [place] [address] HPI - General General Date of Admission: 06/23/24 Date of Service: 06/23/24 Chief Complaint: Dyspnea, wheezing. HPI Narrative The patient is an 84 y/o M w/ PMHx: Chronic anemia/AOCD/Fe deficiency anemia, CKD stage IV per GFR trending, GERD w/ Hx GI bleeding, Chronic thrombocytopenia,Obesity, Chronic COPD w/ Chronic Hypoxic Respiratory Failure (2.5L NC), HTN, HLD, Diabetes mellitus type II, HFpEF, Hx TIA, Former tobacco use, Hypothyroidism, Valvular Heart Disease, Nonobstructive CAD who presents to the [facility] ED with history of worsening shortness of breath starting the day prior with significant wheezing and fatigue, worse with exertion turning his own oxygen supplementation up to 4 L with some improvement with no recent fevers but he does report subjective chills no worsened cough or productive sputum with no recent nausea, emesis, diarrhea, melena or hematochezia prompting eventual ED evaluation to be cautious. Patient does havechronic orthopnea and this has been unchanged. He notes that his weights have been stable. From review of his weights in the system it does appear that most recently 05/28/2024 he was 181 pounds and 0.4 this on 03/24/2024 he was 182 poundsthis significantly stable as far as weight is concerned. Workup in the ED included T97.5 Oral, heart rate 107, BP 140/72, respiratory rate 25, 97% on 2 L nasal cannula noted most recently on 05/28/2024 to be 93% on 3 L nasal cannula atthat time with most recent repeat vitals in the ED T98 oral, heart rate 113, BP 129/49, respiratory rate 19, 96% on 2 L nasal cannula, CBC with WC 5.9, hemoglobin 8.5, MCV 95.1, platelet 101 without marked shift, BMP with BUN/creatinine 86/2.36, GFR 26, glucose 200, initial troponin 83 with repeat delta pending upon requested evaluation of patient, BNP 2233, chest x-ray with no acute cardiopulmonary findings, EKG with sinus rhythm with first-degree AV block with no acute evidence of ischemia in the ED patient ministered DuoNeb therapies and Solu-Medrol 125 mg IV x 1. PFSH Medical History Anemia Acute dyspnea Obesity (BMI 30.0-34.9) Anemia Upper GI bleed History of valvular heart disease Acute on chronic anemia Acute dyspnea Acute on chronic renal insufficiency Acute on chronic anemia Symptomatic anemia Abnormal ECG Elevated troponin Shortness of breath Acute upper gastrointestinal bleeding Essential hypertension Renal insufficiency Non-ST elevation (NSTEMI) myocardial infarction COPD (chronic obstructive pulmonary disease) Loss of hearing No natural teeth Wears glasses Poor historian Thyroid disease Low iron High cholesterol Syncope History of GI bleed Shortness of breath on exertion History of echocardiogram Cardiology follow-up encounter Symptomatic anemia Diabetes Kidney disease Former smoker On home oxygen therapy TIA (transient ischemic attack) Myocardial infarct Hypertension Diastolic CHF Acute and chronic respiratory failure with hypoxia History of CAD (coronary artery disease) Nonrheumatic aortic (valve) stenosis Mild left ventricular hypertrophy History of left heart catheterization (LHC) (~03/15/22) Atherosclerotic heart disease of l[place] coronary artery without angina pectoris Aortic valve stenosis, acquired CAD (coronary artery disease) COPD (chronic obstructive pulmonary disease) Polyarthralgia Diabetes mellitus, type 2 Former tobacco use Obesity Hypothyroidism HLD (hyperlipidemia) HTN (hypertension) Chronic respiratory failure with hypoxia Home Medications ?Medication ?Instructions ?Recorded ?Last Taken ?Type atorvastatin 80 mg tablet 80 mg PO DAILY CHOLESTEROL 0 05/02/21 02/27/24 History cholecalciferol (vitamin D3) 25 25 mcg PO DAILY vitami n 05/02/21 02/28/24 History mcg (1,000 unit) capsule ipratropium 0.5 mg-albuterol 3 mg 3 ml inhalation 4X/D AY PRN sob 05/02/21 11/18/23 History (2.5 mg base)/3 mL nebulization soln liothyronine 25 mcg tablet 25 mcg PO DAILY THYROID 02/28/24 History tiotropium bromide 18 mcg capsule 18 mcg inhalation DA SARAH SOB 05/02/21 02/28/24 History with inhalation device (Spiriva with HandiHaler) vitamins A,C,D-wums-xoiqcj 4,296 1 cap PO BID vitamin 12/13/21 02/28/24 History mcg-226 mg-90 mg capsule (PreserVision AREDS) glimepiride 2 mg tablet 2 mg PO DAILY DM #3 tabs 02/28/24 Rx empagliflozin 10 mg tablet 10 mg PO DAILY heart failur e 30 04/26/23 12/06/23 Rx (Jardiance) days #30 tabs metoprolol succinate 25 mg 25 mg PO DAILY heart 02/28/24 History tablet,extended release 24 hr ferrous sulfate 325 mg (65 mg 325 mg PO BID supplement 11/14/23 02/28/24 History iron) tablet (FeroSul) torsemide 5 mg tablet 5 mg PO DAILY water pill 02/28/24 History furosemide 40 mg tablet 40 mg PO DAILY water pill 02/28/24 History lisinopril 10 mg tablet 10 mg PO DAILY 02/28/2402/09 History pantoprazole 40 mg tablet,delayed 40 mg PO BID #60 tab s 03/02/24 Unknown Rx release sucralfate 1 gram tablet 1 g PO Q6H 90 days #360 tabs 05/01/24 Unknown Rx Allergy/AdvReac Type Severity Reaction Status Date / Time aliskiren (From Valturna) Allergy Intermediate Other Verified 06/23/24 14:33 valsartan (From [place]alt[place]a) Allergy Intermediate Other Verified 06/23/24 14:33 codeine AdvReac Upset Verified 06/23/24 14:33 Stomach Family History Mother CVA (cerebral vascular accident) Heart disease Myocardial infarction Hx of CABG Hypertension Father CVA (cerebral vascular accident) Heart disease Surgical History S/P cataract extraction Social History household members: none housing: house Smoking Status: Former smoker how long ago did patient quit smoking: Quit 2010, prior 1 ppd since teen. alcohol intake: former year quit: 2010 substance use type: does not use ROS ROS Narrative Admission Review of Systems: CONSTITUTIONAL: No weight loss, fever, chills, weight gain, + weakness or fatigue. HEENT: Eyes: No visual loss, blurred vision, double vision or yellow sclerae. Ears, Nose, Throat: No hearing loss, sneezing, congestion, runny nose or sore throat. SKIN: + Chronic bilateral lower extremity venous stasis skin changes, occasionalabrasion, occasional stage ecchymoses. CARDIOVASCULAR: + Chronic stable BL LE edema, not markedly pitting, chronic unchanged orthopnea. No chest pain/pressure/tightness, palpitations, syncopal events. RESPIRATORY: + Acute on chronic shortness of breath, occasional cough with occasional increased phlegm but no marked sputum production he notes, increased wheezing. No marked sputum, no hemoptysis. GASTROINTESTINAL: No anorexia, nausea, vomiting or diarrhea, abdominal pain, melena, BRBPR. GENITOURINARY: No dysuria, frequency, urgency or retention. NEUROLOGICAL: No headache, dizziness, syncope, paralysis, ataxia, numbness or tingling in the extremities, focal weakness, change in bowel or bladder control,seizure. MUSCULOSKELETAL: + muscle, back pain, joint pain or stiffness. HEMATOLOGIC: + anemia, easy bleeding/bruising. LYMPHATICS: No enlarged nodes. No history of splenectomy. PSYCHIATRIC: No history of depression or anxiety. ENDOCRINOLOGIC: No reports of sweating, cold or heat intolerance. No polyuria orpolydipsia. ALLERGIES: No history of asthma, hives, eczema or rhinitis. Vital Signs Vital Signs Vital Signs: 06/23/24 14:28 06/23/24 14:33 06/23/24 14:33 Temperature 97.5 F L 97.6 F L Temperature Source Oral Temporal Pulse Rate 107 H 106 H Respiratory Rate 25 H 29 H Respiratory Effort Short of Breath Labored Accessory Muscle Use Respiratory Depth Shallow Respiratory Pattern Tachypnea Blood Pressure 140/72 H 138/49 H Blood Pressure Mean 94 78 Pulse Ox 97 97 Oxygen Delivery Method Nasal Cannula Nasal Cannula Nasal Cannula Oxygen Flow Rate (L/min) 2 2 2 06/23/24 14:54 06/23/24 15:33 06/23/24 15:51 Temperature 97.5 F L Temperature Source Oral Pulse Rate 100 111 H 112 H Respiratory Rate 16 29 H 20 H Respiratory Effort Respiratory Depth Respiratory Pattern Blood Pressure 124/62 H Blood Pressure Mean 82 Pulse Ox 98 Oxygen Delivery Method Nasal Cannula Oxygen Flow Rate (L/min) 2 06/23/24 16:00 06/23/24 17:00 06/23/24 17:33 Temperature 97.9 F 98 F 98 F Temperature Source Oral Oral Pulse Rate 117 H 113 H 113 H Respiratory Rate 20 H 19 H 19 H Respiratory Effort Respiratory Depth Respiratory Pattern Blood Pressure 117/70 129/49 H 129/49 H Blood Pressure Mean 85 75 75 Pulse Ox 95 96 96 Oxygen Delivery Method Nasal Cannula Nasal Cannula Oxygen Flow Rate (L/min) 2 Weight Weight: 181 lb 10.574 oz Body Mass Index (BMI) 30.2 Physical Exam Narrative Physical Examination: General: Awake, alert, oriented x 3 and cooperative, seated upright in the ED bed, fatigued, no evidence of any distress. Skin: Normal color, normal turgor, no icterus, no cyanosis, chronic bilateral lower extremity venous stasis skin changes, occasional staged ecchymoses, abrasion HEENT: AT/NC, EOMI, PERRLA, MMM, no carotid bruits, no marked JVD noted, although difficult exam given thickened neck. Lungs: Diffusely diminished, > bases, appropriate effort, no evidence of any distress, currently maintained on chronic 2L NC, crackles at bases, diffuse softend expiratory wheezing also present however. Heart: Regular rate with regular rhythm; no gallop, rub audible. Abdomen: Soft, obese, NTTP, distant BS, difficult to discern distention and HSM given habitus. Extremities: No cyanosis, no clubbing, chronic bilateral lower extremity ankle to distal sherwood 1+ edema, stable per patient report. Neurological: Patient awake, alert, oriented as noted, cognitive function intact; pupils equally reactive to light and accommodation, cranial nerves grossly normal, moving all 4 extremities, no focal deficits, strength moderatelyto severely decreased secondary to acute presentation. Psychiatric: Affect appears fatigued, no acute evidence of depressive or anxietyfeelings. Results Lab / Micro Data 06/23/24 14:55 06/23/24 14:55 Labs: Laboratory Results - last 24 hr 06/23/24 14:55: WBC 5.9, RBC 2.84 L, Hgb 8.5 L, Hct 27.0 L, MCV 95.1 H, MCH 29.9, MCHC 31.5 L, RDW Std Deviation 45.3 H, RDW Coeff of John 13.2, Plt Count 101 L, MPV 10.5, Immature Gran % (Auto) 0.300, Neut % (Auto) 71.4 H, Lymph % (Auto) 17.7 L, [place] % (Auto) 6.6, Eos % (Auto) 3.5, Baso % (Auto) 0.5, Absolute Neuts (auto) 4.2, Absolute Lymphs (auto) 1.05, Nucleated RBC % 0, Sodium 142, Potassium 4.3, Chloride 103, Carbon Dioxide 25.6, Anion Gap 13, BUN 86 H, Creatinine 2.36 H, Estim Creat Clear Calc 22.61 L, Est GFR (MDRD) Non-Af 26 L, BUN/Creatinine Ratio 36.4 H, Glucose 200 H, Calcium 9.3, Troponin T High Sens 83 H*, NT pro BNP II 2233 H Micro: Microbiology 06/23/24 14:55 Mucosa - Nose SARS-CoV-2, Influenza & RSV (PCR) - Final Imaging Radiology Impression Chest X-Ray 06/23/24 15:05 IMPRESSION: No acute abnormality is seen. Reading Location: [facility] Assessment & Plan Assessment/Plan (1) Elevated troponin: (2) COPD exacerbation: PLAN: Plan The patient is an 84 y/o M w/ PMHx: Chronic anemia/AOCD/Fe deficiency anemia, CKD stage IV per GFR trending, GERD w/ Hx GI bleeding, Chronic thrombocytopenia,Obesity, Chronic COPD w/ Chronic Hypoxic Respiratory Failure (2.5L NC), HTN, HLD, Diabetes mellitus type II, HFpEF, Hx TIA, Former tobacco use, Hypothyroidism, Valvular Heart Disease, Nonobstructive CAD who presents to the [facility] ED on with history of worsening shortness of breath starting the day prior with significant wheezing and fatigue, worse with exertion turning his own oxygen supplementation up to 4 L with some improvement with no recent fevers but he does report subjective chills no worsened cough or productive sputum with no recent nausea, emesis, diarrhea, melena or hematochezia prompting eventual ED evaluation to be cautious. #1. Acute on Chronic Hypoxic Respiratory Failure secondary to Acute on COPD exacerbation: Will admit to PCU given elevated cardiac enzyme and concern for possibly cardiac component as well possibly secondary to demand given his respiratory presentation concurrently, maintain on oxygen with wean as toleratedto home oxygen supplementation, continue ATC duonebs, PRN albuterol, IV methylprednisolone and preferentially quickly transition to may be a very quick burst of therapy given significant GI bleed history, HOB, IS parameters, will obtain sputum Cx, respiratory viral panel, procalcitonin, will hold on immediately abx therapy but low threshold to add if appropriate. BNP was notablyelevated, will pulsed dose with Lasix 40 mg IV x 1 to be cautious but still uncertain if this is a component or not as well. #2. Indeterminate cardiac enzyme, uncertain significance: EKG in ED SR without acute evidence of ischemia, CXR w/ chronic changes with no acute cardiopulmonaryfindings otherwise, initial trop 83 with repeat delta pending. Will place on a monitored bed to assure no acute myocardial infarction with serial cardiac enzymes. Will continue to pursue enzyme trend and if significantly elevates mayconsider heparin however given significant GI bleed history preference to avoid. Holding off on aspirin therapy given significant bleed history as well and lessenzymes significantly rises. If enzyme rises notably will consult cardiology given significant history and most recent cardiac catheterization with mild to moderate disease only noted. If enzymes rise significantly we will also plan repeat echocardiogram. FLP in AM. Magnesium level requested. #3. HFpEF, possible decompensation but uncertain: BNP upon ED presentation notably elevated possibly secondary to significant underlying renal disease however, will avoid any hydration however to be cautious we will pulse dose withLasix IV x 1 as uncertain if this could still be a component, echocardiogram 12/07/2023 with EF 50 to 55%, continue statin, metoprolol, lisinopril, clarifyingif patient is on torsemide versus Lasix as both are listed, not on aspirin or antiplatelet therapy likely secondary to underlying significant GI bleed historyand anemia. Weights currently stable and does have chronic orthopnea that is unchanged. Will place neck rich wraps. Pending response low threshold to continue with IV Lasix regimen if necessary but still uncertain if this is decompensated. #4. Nonobstructive CAD: Most recent cardiac catheterization mid 03/15/22 with mild to moderate disease with medical management decision at that time, not on antiplatelet therapy secondary to significant GI bleed history, continue statin,metoprolol, lisinopril home regimen. Continue evaluation as noted. #5. Valvular heart disease: Most recent echocardiogram noted 12/07/2023 with EF 50 to 55%, mild to moderate mitral annular calcification, trivial MVI, Tri sinus/trileaflet aortic valve with trivial aortic valve insufficiency. #6. Chronic Kidney Disease Stage IV per GFR trending although has vacillated: Admission BUN/Cr 86/2.36, GFR 26, baseline renal function primarily 2.5-3.0, most recently previous 05/28/2024 creatinine 3.09 at that time, repeat BMP in AM. #7. Chronic macrocytic anemia, anemia of chronic disease, iron deficiency anemia: Admission hemoglobin 8.5, MCV 95.1, baseline hemoglobin primarily 7-9 range, stable, continue to trend, following with hematology outpatient, most recent visit 05/28/2024, encouraged continued IV iron supplementation per the direction outpatient. Continue oral iron supplementation. #8. Chronic thrombocytopenia: Admission platelet 101, baseline primarily 90-1 30 range, stable, continue to trend. #9. 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 pylori negative, 04/02/2023 EGD with capsule endoscopy with short segments of inflammation seen with no active bleeding concerns or significant findings, repeat EGD 12/31/2023 during admission with normal esophagus, oozing gastric ulcer which was biopsied, normal second portion of the duodenum, eventual follow-up most recent EGD 03/01/2024 with normal esophagus, chronic gastritis with hemorrhage treated with a heater probe, oozing duodenal ulcers with pigmented material treated with a heater probe. Encourage strongly continued routine follow-up outpatient with gastroenterology as previously arranged. Continue PPI and sucralfate regimen. #10. Diabetes mellitus type II: Hold oral home regimen, hemoglobin A1c requested, ADA diet, accu checks w/ ISS. #11. Hypertension: Continue home regimen including torsemide, metoprolol, lisinopril home regimen, clarifying is also listed on Lasix as well, PRN hydralazine. #12. Hyperlipidemia: Continue home statin regimen. AM FLP. #13. Hypothyroidism: Continue patient home liothyronine regimen. #14. History of TIA: Not on antiplatelet therapy possibly secondary to significant GI bleed history, clarified to be certain, continue statin, hypertensive regimen, temporally holding diabetic regimen as noted. #15. Obesity: Weight loss and lifestyle changes encouraged. #16. DVT prophylaxis: SCDs. #17. CODE status: Patient RUSTY is his daughter and living will is currently inplace. Discussed CODE status at length including difference between FULL code, DNR-CCA and DNR-CC status. Following discussions about the differences in these status, requested DNR-CCA, no intubation status which was confirmed with examples. Advanced Care Planning Face to Face Time: 16 minutes. Charges/Coding Visit Charges Inpatient E&M: 17246 Init Hosp L3 Procedures Hospitalists Procedures: 25679 Advncd Care Plan 30 Min 06/23/24 9672 <Electronically signed by Tracy Angel MD> Cosigner Signature (if applicable): CC: Dr. Tracy Angel MD; Dr. Yuridia Hernandez MD~ Signed [facility] Work Phone: Hospital course Narrative No data available for this section [facility] Hospital Discharge instructions No data available for this section [facility] Hospital Discharge instructions Additional Instructions Follow-up with your primary care physician. Your EKG and labs today were consistent with your normal baseline. No specific new or concerning changes. Return if you are feeling worse. Use your inhalers as needed.[facility] Work Phone: Hospital Discharge instructions Additional Instructions Your workup today shows that everything is stable compared to your previous admission. Continue all of your medications as directed by your doctor. Continue to wear your oxygen between 2 and 4 L as needed for shortness of breath sensation and return to the ER should you have any further concernsWBrecksville [facility] Work Phone: Progress note No data available for this section [facility] Prozvjee note Author Fredy Joy [facility] March 09, 2023 4:23pm Note Date/Time March 09, 2023 4:23pm [facility] Medical Records Department [address] [place] [id number] Progress Note - GI 03/09/23 1621 MR#: [id number] Acct: [id number] Name: BEULAH BRIGHT Rep #:[id number] 0 : 1940 82 From: Fredy Joy DO PCP: Dr. Talya Nichols, DO Status:ADM IN Location: [place] [address] Subjective Subjective Patient is doing well. He is tolerating a diet. He underwent upper endoscopy yesterday for acute on chronic GI bleed with symptomatic anemia. He was discovered to have bleeding gastric ulcers which were treated endoscopically. These were thought to be secondary to his medicines that he takes as an outpatient and poor wound healing. Objective Data Objective Data Vital Signs: Vital Signs Temp Pulse Resp BP Pulse Ox O2 Del Method O2 Flow Rate 97.8 F 101 H 20 H 153/50 H 98 Nasal Cannula 2 03/09/23 09:37 03/09/23 14:18 03/09/23 14:18 03/09/23 09:37 03/09/23 09:37 03/09/23 09:37 03/09/23 09:37 Oxygen Flow Rate (L/min) 2 Oxygen Delivery Method Nasal Cannula Weight: 186 lb 15.232 oz Body Mass Index (BMI) 31.1 Intake & Output: Intake and Output for Last 24 Hours 03/07/23 03/08/23 03/09/23 23:59 23:59 23:59 Intake Total 110 / 110 429.25 / 429.25 520 / 520 Output Total 1450 / 1450 400 / 400 Balance 110 / -340 -1020.75 / -1020.75 120 / 120 Lab / Micro Data 03/09/23 06:33 03/09/23 06:33 Labs: Laboratory Results - last 24 hr 03/08/23 17:18: POC Glucose 128 H 03/08/23 21:35: POC Glucose 194 H 03/09/23 06:09: POC Glucose 116 H 03/09/23 06:33: WBC 4.2 L, RBC 3.44 L, Hgb 9.3 L, Hct 30.2 L, MCV 87.8, MCH 27.0, MCHC 30.8 L, RDW Std Deviation 55.2 H, RDW Coeff of John 17.4 H, Plt Count 108 L, MPV 11.1, Immature Gran % (Auto) 0.500, Neut % (Auto) 57.7, Lymph % (Auto) 25.7, [place] % (Auto) 9.8, Eos % (Auto) 5.8 H, Baso % (Auto) 0.5, Absolute Neuts (auto) 2.4, Absolute Lymphs (auto) 1.07, Nucleated RBC % 0, Sodium 143, Potassium 4.3, Chloride 110 H, Carbon Dioxide 28.0, Anion Gap 5, BUN 50 H, Creatinine 1.91 H, Estim Creat Clear Calc 25.49, Est GFR (MDRD) Af Amer 43 L, Est GFR (MDRD) Non-Af 36 L, BUN/Creatinine Ratio 26.2 H, Glucose 123 H, Calcium 9.5 03/09/23 13:11: POC Glucose 167 H Micro: Microbiology 03/09/23 12:55 Stool Clostridioides difficile (PCR) - Final 03/09/23 12:55 Stool Stool Lactoferrin - Final 03/07/23 19:50 Stool Stool Occult Blood (CLARY) - Final Occult Blood Positive 03/07/23 18:51 Nasal Secretion SARS-CoV-2 & FLU Antigen (Rapid) - Final Rhythm Strip Rhythm Strip: Sinus Tach Rate: 104 Ectopy: None Physical Exam Narrative Seen and examined. History of COPD and heart failure and CKD stage IV. Chronic dyspnea on exertion. Diarrhea has resolved denies abdominal pain Physical exam General: Alert, Oriented x3, Cooperative HEENT: Atraumatic, PERRLA, EOMI, Normocephalic Oral: No Gingival or Mucosal Lesions/ Ulcerations Neck: Supple, No JVD, Negative Carotid Bruits Lungs: Air entry diminished in bilateral lung bases. No crepitation/rhonchi. Mild dyspnea on exertion Cardiovascular: Regular rate, Regular Rhythm, Normal S1, Normal S2, systolic murmur right second ICS and cardiac apex Abdomen: Bowel Sounds Present, Soft, Non Tender, Non-Distended : No renal angle tenderness. No suprapubic tenderness. Extremities: No edema, Capillary Refill Less than 3 Seconds Skin: No rashes, No breakdown Musculoskeletal: No Tenderness to Palpation of Joints or Extremities Neurological: Cranial nerves II-XII grossly intact, DTR 2+/4. No acute focal neurological deficit. Psych/Mental Status: Flat affect. Assessment & Plan Assessment/Plan (1) Acute on chronic blood loss anemia: (2) Acute upper gastrointestinal bleeding: PLAN: Plan Patient is an 82-year-old male who presented to [facility] ED on03/07/2023 with worsening shortness of breath on exertion and intermittent dark stools. Acute on chronic anemia, suspected recurrent upper GI bleed Follows with Dr. Joy, last office visit on 02/21/23. Previous EGD on 11/17/2022 shows bleeding AVM of the stomach which was treated with heater probe, Many nonbleeding superficial gastric ulcers, many nonbleeding duodenal ulcers H.pylori negative. GI consulted. Hemoglobin slight drop from 7.9 on 02/15 to 7.5on 03/07. Stool occult blood positive in ED. most recently 8.2. Platelet count80,000. Mild leukopenia. Status post treatment yesterday of gastric ulcers around a lesser curvature. Biopsies were taken for intestine metaplasia, dysplasia and H. pylori. Patient can continue medication regimen including 40 mg Protonix twice daily and sulcal fate. Repeat endoscopy in approximately 3 months. Repeat H&H in approximately 3 to 5 days. Charges/Coding Visit Charges Inpatient E&M: 11538 Subs Hosp L3 03/09/23 1731 <Electronically signed by Fredy Friend DO> Cosigner Signature (if applicable): CC: ~ Signed [facility] Work Phone: Reason for referral (narrative)No reason for referral information availableWBrecksville [facility] Work Phone: Summary Purpose Family History No Family History Records Found Relationship Condition Age at Onset Recorded Date/T pearl mother Cerebrovascular accident (CVA) Unknown Cardiac disease Unknown Myocardial infarction Unknown History of coronary artery bypass surgery Unknown Hypertension Unknown father Cerebrovascular accident (CVA) Unknown Advance Directives No Advanced Directives Records Found Advance Directive Response Recorded Date/ Time Living Will Yes December 08, 2021 8:41am Power of Implementation Analyst Yes November 8:41am Name of Medical Power of Implementation Analyst ana m yadav December 08, 2021 8:41am Advance Directive Response Recorded Date/ Time Name of Medical Power of Implementation Analyst ana m yadav December 08, 2021 8:41am Name of Medical Power of Implementation Analyst Ana M carey r December 13, 2021 2:20pm Living Will Yes December 13 2:20pm Power of Implementation Analyst Yes December 13, 2 022 2:20pm Advance Directive Response Recorded Date/ Time Name of Medical Power of Implementation Analyst ana m yadav December 08, 2021 7:41am Name of Medical Power of Implementation Analyst Ana M carey r December 13, 2021 1:20pm Living Will No March 12 3:45am Power of Implementation Analyst No March 12, 023 3:45am Advance Directive Response Recorded Date/ Time Name of Medical Power of Implementation Analyst Ana M carey r December 13, 2021 1:20pm Name of Medical Power of Implementation Analyst ANA MJigarDAEVAE R April 11, 2022 6:15pm Living Will Yes April 11 6:15pm Power of Implementation Analyst Yes April 11, 2022 6:15pm Advance Directive Response Recorded Date/ Time Name of Medical Power of Implementation Analyst ANA M-DAEVAE R April 11, 2022 6:15pm Living Will Yes April 11 11:35pm Power of Implementation Analyst No April 11, 2022 11:35pm Advance Directive Response Recorded Date/ Time Name of Medical Power of Implementation Analyst ADE R April 11, 2022 7:15pm Living Will Yes May 24, 2022 11:15am Power of Implementation Analyst No May 24 11:15am Advance Directive Response Recorded Date/ Time Name of Medical Power of Implementation Analyst ADE R April 11, 2022 7:15pm Living Will Yes May 24, 2022 5:48pm Power of Implementation Analyst No May 24 5:48pm Advance Directive Response Recorded Date/ Time Name of Medical Power of Implementation Analyst daughter October 22, 2022 8:23pm Living Will Yes October 22 8:23pm Power of Implementation Analyst Yes October 22, 023 8:23pm Advance Directive Response Recorded Date/ Time Name of Medical Power of Implementation Analyst daughter October 22, 2022 8:23pm Name of Medical Power of Implementation Analyst recalled November 16, 2022 4:31pm Living Will Yes November 16, 023 4:31pm Power of Implementation Analyst Yes November 16, 2022 4:31pm Advance Directive Response Recorded Date/ Time Name of Medical Power of Implementation Analyst daughter October 22, 2022 8:23pm Name of Medical Power of Implementation Analyst recalled November 16, 2022 7:49pm Living Will Yes November 16, 7:49pm Power of Implementation Analyst Yes November 16, 2022 7:49pm Advance Directive Response Recorded Date/ Time Name of Medical Power of Implementation Analyst daughter October 22, 2022 7:23pm Name of Medical Power of Implementation Analyst recalled November 16, 2022 6:49pm Name of Medical Power of Implementation Analyst nikunj Wilson er February 08, 2023 5:53pm Name of Medical Power of Implementation Analyst UNSURE February 13, 2023 8:14pm Living Will Yes February 13 8:14pm Power of Implementation Analyst Yes February 13, 2023 8:14pm Advance Directive Response Recorded Date/ Time Name of Medical Power of Implementation Analyst daughter October 22, 2022 7:23pm Name of Medical Power of Implementation Analyst recalled November 16, 2022 6:49pm Name of Medical Power of Implementation Analyst nikunj Wilson er February 08, 2023 5:53pm Name of Medical Power of Implementation Analyst UNSURE February 13, 2023 8:14pm Living Will Yes February 13 11:53pm Power of Implementation Analyst No February 13, 2023 11:53pm Advance Directive Response Recorded Date/ Time Name of Medical Power of Implementation Analyst recalled November 16, 2022 6:49pm Name of Medical Power of Implementation Analyst Ana M daught er February 08, 2023 5:53pm Name of Medical Power of Implementation Analyst UNSURE February 13, 2023 8:14pm Living Will No March 07, 2 023 6:30pm Power of Implementation Analyst No March 07, 2023 6:30pm Advance Directive Response Recorded Date/ Time Name of Medical Power of Implementation Analyst recalled November 16, 2022 6:49pm Name of Medical Power of Implementation Analyst Ana M daught er February 08, 2023 5:53pm Name of Medical Power of Implementation Analyst UNSURE February 13, 2023 8:14pm Name of Medical Power of Implementation Analyst Ana M Singletary March 07, 2023 10:14pm Living Will Yes March 07, 023 10:14pm Power of Implementation Analyst Yes March 07, 2023 10:14pm Advance Directive Response Recorded Date/ Time Name of Medical Power of Implementation Analyst ON FILE March 28, 2023 11:29am Living Will Yes March 28 11:29am Power of Implementation Analyst Yes March 28, 2023 11:29am Name of Medical Power of Implementation Analyst Ana M daught er February 08, 2023 5:53pm Name of Medical Power of Implementation Analyst UNSURE February 13, 2023 8:14pm Name of Medical Power of Implementation Analyst Ana M Singletary March 07, 2023 10:14pm Advance Directive Response Recorded Date/ Time Name of Medical Power of Implementation Analyst ON FILE March 28, 2023 11:29am Name of Medical Power of Implementation Analyst ANA M April 07, 2023 1:45pm Living Will Yes April 07 1:45pm Power of Implementation Analyst Yes April 07, 2023 1:45pm Name of Medical Power of Implementation Analyst Ana M daught er February 08, 2023 5:53pm Name of Medical Power of Implementation Analyst UNSURE February 13, 2023 8:14pm Name of Medical Power of Implementation Analyst Ana M Hayder March 07, 2023 10:14pm Advance Directive Response Recorded Date/ Time Name of Medical Power of Implementation Analyst ON FILE March 28, 2023 11:29am Name of Medical Power of Implementation Analyst ANA M April 07, 2023 1:45pm Living Will No April 24 024 3:39pm Power of Implementation Analyst No April 24, 2023 3:39pm Name of Medical Power of Implementation Analyst Ana M, daught er February 08, 2023 5:53pm Name of Medical Power of Implementation Analyst UNSURE February 13, 2023 8:14pm Name of Medical Power of Implementation Analyst Ana M Hayder March 07, 2023 10:14pm Advance Directive Response Recorded Date/ Time Name of Medical Power of Implementation Analyst ON FILE March 28, 2023 11:29am Name of Medical Power of Implementation Analyst ANA M April 07, 2023 1:45pm Living Will Yes April 24 024 8:08pm Power of Implementation Analyst No April 24, 2023 8:08pm Name of Medical Power of Implementation Analyst Ana M, daught er February 08, 2023 5:53pm Name of Medical Power of Implementation Analyst RE February 13, 2023 8:14pm Name of Medical Power of Implementation Analyst Ana M Hayder March 07, 2023 10:14pm Advance Directive Response Recorded Date/ Time Name of Medical Power of Implementation Analyst ON FILE March 28, 2023 11:29am Name of Medical Power of Implementation Analyst ANA M April 07, 2023 1:45pm Name of Medical Power of Implementation Analyst Ana M, daught er February 08, 2023 5:53pm Name of Medical Power of Implementation Analyst UNSURE February 13, 2023 8:14pm Name of Medical Power of Implementation Analyst Ana M Hayder March 07, 2023 10:14pm Name of Medical Power of Implementation Analyst ANA M- [facility] April 30, 2023 9:47pm Living Will Yes April 30 9:47pm Power of Implementation Analyst Yes April 30, 2023 9:47pm Advance Directive Response Recorded Date/ Time Name of Medical Power of Implementation Analyst ON FILE March 28, 2023 12:29pm Name of Medical Power of Implementation Analyst ANA M April 07, 2023 2:45pm Name of Medical Power of Implementation Analyst Ana M Hayder March 07, 2023 11:14pm Name of Medical Power of Implementation Analyst ANA M- [facility] April 30, 2023 10:47pm Living Will No June 27, 2023 3:34pm Power of Implementation Analyst No June 26 3:34pm Advance Directive Response Recorded Date/ Time Living Will No June 23, 2024 2:33pm Do you have a Healthcare Power of Implementation Analyst? No June 23, 2024 2:33pm Living Will Yes February 27 7:32pm Do you have a Healthcare Power of Implementation Analyst? Yes February 28, 2024 7:32pm Name of Medical Power of Implementation Analyst Ana M February 28, 2024 7:32pm Advance Directive Response Recorded Date/ Time Living Will No June 23, 2024 6:43pm Do you have a Healthcare Power of Implementation Analyst? No June 23, 2024 6:43pm Living Will Yes February 27 7:32pm Do you have a Healthcare Power of Implementation Analyst? Yes February 28, 2024 7:32pm Name of Medical Power of Implementation Analyst Ana M February 28, 2024 7:32pm Advance Directive Response Recorded Date/ Time Living Will No June 23, 2024 6:43pm Do you have a Healthcare Power of Implementation Analyst? No June 23, 2024 6:43pm Chief Complaint and Reason for Visit Chief Complaint r ankle pain Chief Complaint r ankle pain FTT ADULT FTT ADULT FTT ADULT FTT ADULT Reason for Visit Debility Dehydration Polyarthralgia Acute on chronic renal insufficiency COPD (chronic obstructive pulmonary disease) Chief Complaint r ankle pain FTT ADULT FTT ADULT FTT ADULT FTT ADULT FTT ADULT ACUTE ON CHRONIC HEART FAILURE WITH PRESERVED EF ACUTE ON CHRONIC HEART FAILURE WITH PRESERVED EF ACUTE ON CHRONIC HEART FAILURE WITH PRESERVED EF ACUTE ON CHRONIC HEART FAILURE WITH PRESERVED EF ACUTE ON CHRONIC HEART FAILURE WITH PRESERVED EF ACUTE ON CHRONIC HEART FAILURE WITH PRESERVED EF ACUTE ON CHRONIC HEART FAILURE WITH PRESERVED EF ACUTE ON CHRONIC HEART FAILURE WITH PRESERVED EF ACUTE ON CHRONIC HEART FAILURE WITH PRESERVED EF Reason for Visit Acute on chronic santos al insufficiency Dehydration Acute CHF (congestive heart failure) Aortic valve stenosis, acquired Bilateral pleural effusion CAD (coronary artery disease) Cardiac murmur Elevated troponin HLD (hyperlipidemia) Hypoxemia Non-ST elevation (NSTEMI) myocardial infarction Renal insufficiency COPD (chronic obstructive pulmonary disease) HTN (hypertension) Chief Complaint FTT ADULT FTT ADULT FTT ADULT FTT ADULT FTT ADULT ACUTE ON CHRONIC HEART FAILURE WITH PRESERVED EF ACUTE ON CHRONIC HEART FAILURE WITH PRESERVED EF ACUTE ON CHRONIC HEART FAILURE WITH PRESERVED EF ACUTE ON CHRONIC HEART FAILURE WITH PRESERVED EF ACUTE ON CHRONIC HEART FAILURE WITH PRESERVED EF ACUTE ON CHRONIC HEART FAILURE WITH PRESERVED EF ACUTE ON CHRONIC HEART FAILURE WITH PRESERVED EF ACUTE ON CHRONIC HEART FAILURE WITH PRESERVED EF ACUTE ON CHRONIC HEART FAILURE WITH PRESERVED EF ACUTE ON CHRONIC HEART FAILURE WITH PRESERVED EF CHF Reason for Visit Acute on chronic santos al insufficiency Dehydration Acute CHF (congestive heart failure) Bilateral pleural effusion Cardiac murmur Elevated troponin HLD (hyperlipidemia) Hypoxemia Non-ST elevation (NSTEMI) myocardial infarction Renal insufficiency COPD (chronic obstructive pulmonary disease) Bilateral pleural effusion Essential hypertension History of CAD (coronary artery disease) HLD (hyperlipidemia) Mild left ventricular hypertrophy Nonrheumatic aortic (valve) stenosis Renal insufficiency Acute and chronic respiratory failure with hypoxia Acute exacerbation of CHF (congestive heart failure) Chief Complaint FTT ADULT FTT ADULT FTT ADULT FTT ADULT ACUTE ON CHRONIC HEART FAILURE WITH PRESERVED EF ACUTE ON CHRONIC HEART FAILURE WITH PRESERVED EF ACUTE ON CHRONIC HEART FAILURE WITH PRESERVED EF ACUTE ON CHRONIC HEART FAILURE WITH PRESERVED EF ACUTE ON CHRONIC HEART FAILURE WITH PRESERVED EF ACUTE ON CHRONIC HEART FAILURE WITH PRESERVED EF ACUTE ON CHRONIC HEART FAILURE WITH PRESERVED EF ACUTE ON CHRONIC HEART FAILURE WITH PRESERVED EF ACUTE ON CHRONIC HEART FAILURE WITH PRESERVED EF ACUTE ON CHRONIC HEART FAILURE WITH PRESERVED EF CHF Congestive heart failure Congestive heart failure Congestive heart failure Reason for Visit Acute CHF (congestiv e heart failure) Bilateral pleural effusion Cardiac murmur Elevated troponin HLD (hyperlipidemia) Hypoxemia Non-ST elevation (NSTEMI) myocardial infarction Renal insufficiency COPD (chronic obstructive pulmonary disease) Bilateral pleural effusion Essential hypertension History of CAD (coronary artery disease) HLD (hyperlipidemia) Mild left ventricular hypertrophy Nonrheumatic aortic (valve) stenosis Renal insufficiency Acute and chronic respiratory failure with hypoxia Acute exacerbation of CHF (congestive heart failure) Chief Complaint ACUTE ON CHRONIC HEA RT FAILURE WITH PRESERVED EF ACUTE ON CHRONIC HEART FAILURE WITH PRESERVED EF ACUTE ON CHRONIC HEART FAILURE WITH PRESERVED EF ACUTE ON CHRONIC HEART FAILURE WITH PRESERVED EF ACUTE ON CHRONIC HEART FAILURE WITH PRESERVED EF ACUTE ON CHRONIC HEART FAILURE WITH PRESERVED EF ACUTE ON CHRONIC HEART FAILURE WITH PRESERVED EF ACUTE ON CHRONIC HEART FAILURE WITH PRESERVED EF ACUTE ON CHRONIC HEART FAILURE WITH PRESERVED EF ACUTE ON CHRONIC HEART FAILURE WITH PRESERVED EF CHF Congestive heart failure Congestive heart failure Congestive heart failure s/p [facility] ED 03-16-22 CHF Reason for Visit Bilateral pleural ef fusion Cardiac murmur Elevated troponin Hypoxemia Non-ST elevation (NSTEMI) myocardial infarction COPD (chronic obstructive pulmonary disease) HLD (hyperlipidemia) Renal insufficiency Acute CHF (congestive heart failure) Bilateral pleural effusion History of CAD (coronary artery disease) Mild left ventricular hypertrophy Acute and chronic respiratory failure with hypoxia Essential hypertension HLD (hyperlipidemia) Nonrheumatic aortic (valve) stenosis Renal insufficiency Atherosclerotic heart disease of [place] coronary artery without angina pectoris Diastolic CHF Essential hypertension HLD (hyperlipidemia) Nonrheumatic aortic (valve) stenosis Renal insufficiency CHF (congestive heart failure) History of CAD (coronary artery disease) Chief Complaint ACUTE ON CHRONIC HEA RT FAILURE WITH PRESERVED EF ACUTE ON CHRONIC HEART FAILURE WITH PRESERVED EF ACUTE ON CHRONIC HEART FAILURE WITH PRESERVED EF ACUTE ON CHRONIC HEART FAILURE WITH PRESERVED EF ACUTE ON CHRONIC HEART FAILURE WITH PRESERVED EF ACUTE ON CHRONIC HEART FAILURE WITH PRESERVED EF ACUTE ON CHRONIC HEART FAILURE WITH PRESERVED EF ACUTE ON CHRONIC HEART FAILURE WITH PRESERVED EF ACUTE ON CHRONIC HEART FAILURE WITH PRESERVED EF ACUTE ON CHRONIC HEART FAILURE WITH PRESERVED EF CHF Congestive heart failure Congestive heart failure Congestive heart failure s/p [facility] ED 03-16-22 CHF Congestive heart failure Reason for Visit Bilateral pleural ef fusion Cardiac murmur Elevated troponin Hypoxemia Non-ST elevation (NSTEMI) myocardial infarction COPD (chronic obstructive pulmonary disease) HLD (hyperlipidemia) Renal insufficiency Acute CHF (congestive heart failure) Bilateral pleural effusion History of CAD (coronary artery disease) Mild left ventricular hypertrophy Acute and chronic respiratory failure with hypoxia Essential hypertension HLD (hyperlipidemia) Nonrheumatic aortic (valve) stenosis Renal insufficiency Atherosclerotic heart disease of [place] coronary artery without angina pectoris Diastolic CHF Essential hypertension HLD (hyperlipidemia) Nonrheumatic aortic (valve) stenosis Renal insufficiency CHF (congestive heart failure) History of CAD (coronary artery disease) Chief Complaint 2 M FU sob Reason for Visit Atherosclerotic hear t disease of [place] coronary artery without angina pectoris Diastolic CHF Essential hypertension HLD (hyperlipidemia) Nonrheumatic aortic (valve) stenosis Renal insufficiency Chief Complaint sob sob Reason for Visit Anemia GI bleed Chief Complaint sob sob sob sob sob Reason for Visit Anemia GI bleed Chief Complaint sob GI BLEED sob sob sob Reason for Visit Anemia GI bleed Chief Complaint sob GI BLEED sob sob sob shortness of breath NEAR SYNCOPE, GUZMAN, LEUKOCYTOSIS OF 20.7 WITH Reason for Visit Anemia GI bleed Acute bronchospasm Acute exacerbation of chronic obstructive pulmonary disease (COPD) Chief Complaint sob GI BLEED sob sob sob shortness of breath NEAR SYNCOPE, GUZMAN, LEUKOCYTOSIS OF 20.7 WITH NEAR SYNCOPE, GUZMAN, LEUKOCYTOSIS OF 20.7 WITH Reason for Visit Anemia GI bleed Acute bronchospasm Near syncope Acute exacerbation of chronic obstructive pulmonary disease (COPD) Chief Complaint GI BLEED sob sob sob shortness of breath NEAR SYNCOPE, GUZMAN, LEUKOCYTOSIS OF 20.7 WITH NEAR SYNCOPE, GUZMAN, LEUKOCYTOSIS OF 20.7 WITH NEAR SYNCOPE, GUZMAN, LEUKOCYTOSIS OF 20.7 WITH Hospital FU ANEMIA, COPD Reason for Visit Anemia GI bleed Near syncope Anemia Acute upper gastrointestinal bleeding Symptomatic anemia Acute on chronic blood loss anemia COPD (chronic obstructive pulmonary disease) Chief Complaint GI BLEED sob sob sob shortness of breath NEAR SYNCOPE, GUZMAN, LEUKOCYTOSIS OF 20.7 WITH NEAR SYNCOPE, GUZMAN, LEUKOCYTOSIS OF 20.7 WITH NEAR SYNCOPE, GUZMAN, LEUKOCYTOSIS OF 20.7 WITH Hospital FU ACUTE ON CHRONIC ANEMIA, GI BLEED ACUTE ON CHRONIC ANEMIA, GI BLEED ACUTE ON CHRONIC ANEMIA, GI BLEED ACUTE ON CHRONIC ANEMIA, GI BLEED ACUTE ON CHRONIC ANEMIA, GI BLEED Reason for Visit Anemia GI bleed Near syncope Anemia Acute upper gastrointestinal bleeding Symptomatic anemia Acute on chronic blood loss anemia Anemia COPD (chronic obstructive pulmonary disease) GI bleed Chief Complaint shortness of breath NEAR SYNCOPE, GUZMAN, LEUKOCYTOSIS OF 20.7 WITH NEAR SYNCOPE, GUZMAN, LEUKOCYTOSIS OF 20.7 WITH NEAR SYNCOPE, GUZMAN, LEUKOCYTOSIS OF 20.7 WITH Hospital FU ACUTE ON CHRONIC ANEMIA, GI BLEED ACUTE ON CHRONIC ANEMIA, GI BLEED ACUTE ON CHRONIC ANEMIA, GI BLEED ACUTE ON CHRONIC ANEMIA, GI BLEED ACUTE ON CHRONIC ANEMIA, GI BLEED cap endo Reason for Visit Near syncope Anemia Acute upper gastrointestinal bleeding Anemia COPD (chronic obstructive pulmonary disease) Acute on chronic blood loss anemia GI bleed Acute upper gastrointestinal bleeding Chief Complaint shortness of breath NEAR SYNCOPE, GUZMAN, LEUKOCYTOSIS OF 20.7 WITH NEAR SYNCOPE, GUZMAN, LEUKOCYTOSIS OF 20.7 WITH NEAR SYNCOPE, GUZMAN, LEUKOCYTOSIS OF 20.7 WITH Hospital FU ACUTE ON CHRONIC ANEMIA, GI BLEED ACUTE ON CHRONIC ANEMIA, GI BLEED ACUTE ON CHRONIC ANEMIA, GI BLEED ACUTE ON CHRONIC ANEMIA, GI BLEED ACUTE ON CHRONIC ANEMIA, GI BLEED cap endo SOB Reason for Visit Near syncope Anemia Acute upper gastrointestinal bleeding Anemia COPD (chronic obstructive pulmonary disease) Acute on chronic blood loss anemia GI bleed Acute upper gastrointestinal bleeding Chief Complaint shortness of breath NEAR SYNCOPE, GUZMAN, LEUKOCYTOSIS OF 20.7 WITH NEAR SYNCOPE, GUZMAN, LEUKOCYTOSIS OF 20.7 WITH NEAR SYNCOPE, GUZMAN, LEUKOCYTOSIS OF 20.7 WITH Hospital FU ACUTE ON CHRONIC ANEMIA, GI BLEED ACUTE ON CHRONIC ANEMIA, GI BLEED ACUTE ON CHRONIC ANEMIA, GI BLEED ACUTE ON CHRONIC ANEMIA, GI BLEED ACUTE ON CHRONIC ANEMIA, GI BLEED cap endo SOB 2 WK FU ACUTE HYPOXIA 2/2 ACUTE ON CHRONIC HEART FAILURE Reason for Visit Near syncope Anemia Acute upper gastrointestinal bleeding Anemia COPD (chronic obstructive pulmonary disease) Acute on chronic blood loss anemia GI bleed Acute upper gastrointestinal bleeding Anemia Chief Complaint shortness of breath NEAR SYNCOPE, GUZMAN, LEUKOCYTOSIS OF 20.7 WITH NEAR SYNCOPE, GUZMAN, LEUKOCYTOSIS OF 20.7 WITH NEAR SYNCOPE, GUZMAN, LEUKOCYTOSIS OF 20.7 WITH Hospital FU ACUTE ON CHRONIC ANEMIA, GI BLEED ACUTE ON CHRONIC ANEMIA, GI BLEED ACUTE ON CHRONIC ANEMIA, GI BLEED ACUTE ON CHRONIC ANEMIA, GI BLEED ACUTE ON CHRONIC ANEMIA, GI BLEED cap endo SOB 2 WK FU ACUTE HYPOXIA 2/2 ACUTE ON CHRONIC HEART FAILURE ACUTE HYPOXIA 2/2 ACUTE ON CHRONIC HEART FAILURE ACUTE HYPOXIA 2/2 ACUTE ON CHRONIC HEART FAILURE ACUTE HYPOXIA 2/2 ACUTE ON CHRONIC HEART FAILURE ACUTE HYPOXIA 2/2 ACUTE ON CHRONIC HEART FAILURE ACUTE HYPOXIA 2/2 ACUTE ON CHRONIC HEART FAILURE Reason for Visit Near syncope Anemia Acute upper gastrointestinal bleeding Anemia COPD (chronic obstructive pulmonary disease) Acute on chronic blood loss anemia GI bleed Acute upper gastrointestinal bleeding Anemia Acute dyspnea Acute on chronic heart failure with preserved ejection fraction (HFpEF) Atherosclerotic heart disease of [place] coronary artery without angina pectoris Carotid artery stenosis Elevated brain natriuretic peptide (BNP) level Elevated troponin Hypoxia Anemia Essential hypertension HLD (hyperlipidemia) Nonrheumatic aortic (valve) stenosis Renal insufficiency Chief Complaint shortness of breath NEAR SYNCOPE, GUZMAN, LEUKOCYTOSIS OF 20.7 WITH NEAR SYNCOPE, GUZMAN, LEUKOCYTOSIS OF 20.7 WITH NEAR SYNCOPE, GUZMAN, LEUKOCYTOSIS OF 20.7 WITH Hospital FU ACUTE ON CHRONIC ANEMIA, GI BLEED ACUTE ON CHRONIC ANEMIA, GI BLEED ACUTE ON CHRONIC ANEMIA, GI BLEED ACUTE ON CHRONIC ANEMIA, GI BLEED ACUTE ON CHRONIC ANEMIA, GI BLEED cap endo SOB 2 WK FU ACUTE HYPOXIA 2/2 ACUTE ON CHRONIC HEART FAILURE ACUTE HYPOXIA 2/2 ACUTE ON CHRONIC HEART FAILURE ACUTE HYPOXIA 2/2 ACUTE ON CHRONIC HEART FAILURE ACUTE HYPOXIA 2/2 ACUTE ON CHRONIC HEART FAILURE ACUTE HYPOXIA 2/2 ACUTE ON CHRONIC HEART FAILURE ACUTE HYPOXIA 2/2 ACUTE ON CHRONIC HEART FAILURE SOB Reason for Visit Near syncope Anemia Acute upper gastrointestinal bleeding Anemia COPD (chronic obstructive pulmonary disease) Acute on chronic blood loss anemia GI bleed Acute upper gastrointestinal bleeding Anemia Acute dyspnea Atherosclerotic heart disease of [place] coronary artery without angina pectoris Carotid artery stenosis Elevated brain natriuretic peptide (BNP) level Elevated troponin Hypoxia Anemia Essential hypertension HLD (hyperlipidemia) Nonrheumatic aortic (valve) stenosis Renal insufficiency Acute on chronic heart failure with preserved ejection fraction (HFpEF) Chief Complaint ACUTE ON CHRONIC ANE LAINE, GI BLEED ACUTE ON CHRONIC ANEMIA, GI BLEED ACUTE ON CHRONIC ANEMIA, GI BLEED ACUTE ON CHRONIC ANEMIA, GI BLEED ACUTE ON CHRONIC ANEMIA, GI BLEED cap endo SOB 2 WK FU ACUTE HYPOXIA 2/2 ACUTE ON CHRONIC HEART FAILURE ACUTE HYPOXIA 2/2 ACUTE ON CHRONIC HEART FAILURE ACUTE HYPOXIA 2/2 ACUTE ON CHRONIC HEART FAILURE ACUTE HYPOXIA 2/2 ACUTE ON CHRONIC HEART FAILURE ACUTE HYPOXIA 2/2 ACUTE ON CHRONIC HEART FAILURE ACUTE HYPOXIA 2/2 ACUTE ON CHRONIC HEART FAILURE SOB SOB Reason for Visit Acute upper gastroin testinal bleeding Anemia COPD (chronic obstructive pulmonary disease) Acute on chronic blood loss anemia GI bleed Acute upper gastrointestinal bleeding Anemia Acute dyspnea Atherosclerotic heart disease of [place] coronary artery without angina pectoris Carotid artery stenosis Elevated brain natriuretic peptide (BNP) level Elevated troponin Hypoxia Anemia Essential hypertension HLD (hyperlipidemia) Nonrheumatic aortic (valve) stenosis Renal insufficiency Acute on chronic heart failure with preserved ejection fraction (HFpEF) Chief Complaint Admit Date Amb Documentation February 28, 2024 11:03am Amb Documentation February 28, 2024 11:20am SOB, ANEMIA February 28, 2024 5:39pm SOB, ANEMIA February 29, 2024 2:55pm SOB, ANEMIA February 29, 2024 6:55pm SOB, ANEMIA March 01, 2024 12:11pm SOB, ANEMIA March 02, 2024 11:54am Hospital FU March 17, 2024 7: 42am Anemia March 24, 2024 3 :23pm [facility] Mayuri 22nd, 2025 3 :54pm [facility] May 28, 2024 3:0 1pm MED ONC May 28, 2024 3:1 5pm ACUTE ON CHRONIC HYPOXIC RESP FAILURE Ap ril 2024 5:35pm Reason for Visit Admit Date Weakness February 28, 2024 5:39pm Acute dyspnea February 28, 2024 5:39pm Anemia February 28, 2024 5:39pm History of GI bleed March 17, 2024 7: 42am Anemia March 17, 2024 7: 42am Anemia March 24, 2024 3 :23pm Anemia April 02, 2024 3 :54pm Iron deficiency April 02, 2024 3 :54pm Anemia May 28, 2024 3:0 1pm Iron deficiency May 28, 2024 3:0 1pm Elevated troponin June 23, 2024 5:3 5pm Chronic anemia June 23, 2024 5:3 5pm Chronic kidney disease June 23, 2024 5:35pm COPD exacerbation June 23, 2024 5:3 5pm Chief Complaint Admit Date Amb Documentation February 28, 2024 11:03am Amb Documentation February 28, 2024 11:20am SOB, ANEMIA February 28, 2024 5:39pm SOB, ANEMIA February 29, 2024 2:55pm SOB, ANEMIA February 29, 2024 6:55pm SOB, ANEMIA March 01, 2024 12:11pm SOB, ANEMIA March 02, 2024 11:54am Hospital FU March 17, 2024 7: 42am Anemia March 24, 2024 3 :23pm [facility] April 02, 2024 3 :54pm [facility] May 28, 2024 3:0 1pm MED ONC May 28, 2024 3:1 5pm ACUTE ON CHRONIC HYPOXIC RESP FAILURE Ap ril 2024 5:35pm ACUTE ON CHRONIC HYPOXIC RESP FAILURE Ap ril 2024 1:59pm ACUTE ON CHRONIC HYPOXIC RESP FAILURE Ap ril 2024 1:49pm Chief Complaint Admit Date [facility] May 28, 2024 3:0 1pm MED ONC May 28, 2024 3:1 5pm ACUTE ON CHRONIC HYPOXIC RESP FAILURE Ap ril 2024 5:35pm ACUTE ON CHRONIC HYPOXIC RESP FAILURE Ap ril 2024 1:59pm ACUTE ON CHRONIC HYPOXIC RESP FAILURE Ap ril 2024 1:49pm SHORTNESS OF BREATH June 30, 2024 3:2 2pm CKD July 04, 2024 2:4 7pm 4 month f/u July 14, 2024 2:20pm Reason for Visit Admit Date Anemia May 28, 2024 3:0 1pm Iron deficiency May 28, 2024 3:0 1pm COPD exacerbation June 23, 2024 5:3 5pm Elevated troponin June 23, 2024 5:3 5pm Chronic anemia June 23, 2024 5:3 5pm Chronic kidney disease June 23, 2024 5:35pm History of gastric ulcer July 14, 2024 2 :20pm Additional Source Comments (unrecognized sect ion and content) No Status Records FoundNo Status Records FoundNo Status Records FoundNo Status Records Found INFORMATION SOURCE (unrecogn ized section and content) DATE CREATED AUTHOR 11/28/2018 [facility] ([place]) DATE CREATED AUTHOR AUTHOR'S ORGANIZ ATION 08/20/2023 [facility] ([place]) DATE CREATED AUTHOR AUTHOR'S ORGANIZ ATION 04/05/2024 [facility] DATE CREATED AUTHOR AUTHOR'S ORGANIZ ATION 08/07/2024 [facility] Care Team (unrecognized sect ion and content) Care Team Personnel Name: TALYA NICHOLS DO Position: P4 Physician - Primary Care Med Service: Active Provider Member Role: Primary Care Physician Address: Address: [address] [place] [address] Care Team Related Persons Name: ANA M YADAV Care Team Personnel Name: TALYA NICHOLS DO Position: P4 Physician - Primary Care Member Role: Primary Care Physician Address: Address: [address] [place] [address] Care Team Related Persons Name: ANA M SINGLETARY Care Team Personnel Name: TALYA NICHOLS DO Position: P4 Physician - Primary Care Member Role: Primary Care Physician Address: Address: [address] [place] [address] Care Team Related Persons Name: ANA M SINGLETARY Goals (unrecognized section and content) Goals may be documented in a n alternate section Care Teams (unrecognized sec tion and content) Team Status: Active Member Role Status Dates Dr. Yuridia Hernandez MD Primary Care Provider Active Team Status: Inactive Member Role Status Dates Dr. Yuridia Hernandez MD Primary Care Provider Active Start: May 28, 2024 End: May 28, 2024 Dr. Yuridia Hernandez MD Referring Provider Active Start: May 28, 2024 End: May 28, 2024 Dr. Andre Duarte MD Attending Provider Active S tart: May 28, 2024 End: May 28, 2024 Team Status: Active Member Role Status Dates Dr. Yuridia Hernandez MD Primary Care Provider Active Start: May 28, 2024 Dr. Andre Duarte MD Attending Provider Active S tart: May 28, 2024 Dr. Andre Duarte MD Referring Provider Active S tart: May 28, 2024 Team Status: Inactive Member Role Status Dates Dr. Yuridia Hernandez MD Primary Care Provider Active Start: June 23, 2024 End: June 25, 2024 Dr. Eric Lester MD Emergency Provider Active Start: June 23, 2024 End: June 25, 2024 Dr. Tracy Angel MD Admit Provider Active St art: June 23, 2024 End: June 25, 2024 Dr. Tracy Angel MD Other Provider Active St art: June 23, 2024 End: June 25, 2024 Dr. Sarai Alcantara MD Attending Provider Active Start: June 23, 2024 End: June 25, 2024 Team Status: Active Member Role Status Dates Dr. Yuridia Hernandez MD Primary Care Provider Active Start: June 24, 2024 Dr. Eric Lester MD Emergency Provider Active Start: June 24, 2024 Dr. Tracy Angel MD Admit Provider Active St art: June 24, 2024 Dr. Tracy Angel MD Other Provider Active St art: June 24, 2024 Dr. Sarai Alcantara MD Attending Provider Active Start: June 24, 2024 Dr. Sarai Alcantara MD Other Provider Active St art: June 24, 2024 Team Status: Active Member Role Status Dates Dr. Yuridia Hernandez MD Primary Care Provider Active Start: June 25, 2024 Dr. Eric Lester MD Emergency Provider Active Start: June 25, 2024 Dr. Tracy Angel MD Admit Provider Active St art: June 25, 2024 Dr. Tracy Angel MD Other Provider Active St art: June 25, 2024 Dr. Sarai Alcantara MD Attending Provider Active Start: June 25, 2024 Dr. Sarai Alcantara MD Other Provider Active St art: June 25, 2024 Team Status: Inactive Member Role Status Dates Dr. Yuridia Hernandez MD Primary Care Provider Active Start: June 30, 2024 End: June 30, 2024 Dr. Yuridia Hernandez MD Attending Provider Active Start: June 30, 2024 End: June 30, 2024 Dr. Yuridia Hernandez MD Referring Provider Active Start: June 30, 2024 End: June 30, 2024 Team Status: Inactive Member Role Status Dates Dr. Yuridia Hernandez MD Primary Care Provider Active Start: July 04, 2024 End: July 04, 2024 Dr. Manuela Washburn DO Attending Provider Active Start: July 04, 2024 End: July 04, 2024 Dr. Manuela Washburn DO Referring Provider Active Start: July 04, 2024 End: July 04, 2024 Team Status: Inactive Member Role Status Dates Dr. Yuridia Hernandez MD Primary Care Provider Active Start: July 14, 2024 End: July 14, 2024 Dr. Yuridia Hernandez MD Referring Provider Active Start: July 14, 2024 End: July 14, 2024 MIKE Engel Attending Provider Active Start: July 14, 2024 End: July 14, 2024 Team Status: Inactive Member Role Status Dates Dr. Yuridia Hernandez MD Primary Care Provider Active Start: August 01, 2024 End: August 01, 2024 Dr. Manuela Washburn DO Attending Provider Active Start: August 01, 2024 End: August 01, 2024 Dr. Manuela Washburn DO Referring Provider Active Start: August 01, 2024 End: August 01, 2024 Team Status: Active Member Role Status Dates Dr. Yuridia Hernandez MD Family Provider Active Dr. Talya Nichols DO Primary Care Provider Active Team Status: Active Member Role Status Dates Dr. Talya Nichols DO Primary Care Provider Active Dr. Randy Villanueva DO Emergency Provider Active Dr. Tracy Angel MD Admit Provider, Other Provider Active Dr. Andre Rodriguez MD Active Dr. Sarai Alcantara MD Attending Provider Active Team Status: Active Member Role Status Dates Dr. Talya Nichols , DO Primary Care Provider Active Dr. Randy Villanueva , DO Emergency Provider Active Dr. Tracy Angel MD Admit Provider, Other Provider Active Dr. Sarai Alcantara MD Attending Provider, Other Prov ider Active Team Status: Active Member Role Status Dates Dr. Talya Nichols , DO Primary Care Provider Active Dr. Julian Jang MD Attending Provider Active Dr. Tracy Angel MD Referring Provider Active Team Status: Active Member Role Status Dates Dr. Talya Nichols , DO Primary Care Provider Active Dr. Eric Lester MD Emergency Provider Active Dr. Andre Rodriguez MD Admit Provider, Attending Provider, Other Provider Active Team Status: Active Member Role Status Dates Dr. Talya Nichols , DO Primary Care Provider Active Dr. Eric Lester MD Emergency Provider Active Dr. Andre Rodriguez MD Admit Provider, Other Provide r Active Dr. Anthony Sosa , DO Other Provider Active Dr. Yuridia Blunt MD Attending Provider, Other Prov ider Active Team Status: Active Member Role Status Dates Dr. Talya Nichols , DO Primary Care Provider Active Dr. Eric Lester MD Emergency Provider Active Dr. Andre Rodriguez MD Admit Provider, Other Provide r Active Dr. Anthony Sosa , DO Attending Provider, Other Pro vider Active Dr. Yuridia Blunt MD Other Provider Active Team Status: Active Member Role Status Dates Dr. Talya Nichols , DO Primary Care Provider Active Dr. Gustavo Tariq MD Attending Provider Active Team Status: Active Member Role Status Dates Dr. Talya Nichols , DO Primary Care Provider Active Dr. Eric Lester MD Emergency Provider Active Dr. Andre Rodriguez MD Admit Provider, Other Provide r Active Dr. Yuridia Blunt MD Attending Provider, Other Prov ider Active Dr. John Anders MD Other Provider Active Dr. Anthony Sosa , DO Other Provider Active Team Status: Active Member Role Status Dates Dr. Talya Nichols , DO Primary Care Provider Active Dr. Eric Lester MD Emergency Provider Active Dr. Andre Rodriguez MD Admit Provider, Other Provide r Active Dr. Yuridia Blunt MD Other Provider Active Dr. John Anders MD Attending Provider, Other Provider Active Dr. Anthony Sosa , DO Other Provider Active Team Status: Inactive Member Role Status Dates Dr. Talya Nichols , DO Primary Care Provider Active Dr. Randy Villanueva DO Emergency Provider Active Dr. Tracy Angel MD Admit Provider, Other Provider Active Dr. Sarai Alcantara MD Attending Provider Active Team Status: Inactive Member Role Status Dates Dr. Talya Nichols , DO Primary Care Provider Active Dr. Eric Lester MD Emergency Provider Active Dr. Andre Rodriguez MD Admit Provider, Other Provide r Active Dr. Yuridia Blunt MD Other Provider Active Dr. John Anders MD Attending Provider Active Dr. Anthony Sosa , DO Other Provider Active Team Status: Active Member Role Status Dates Dr. Talya Nichols , DO Primary Care Provider Active Dr. Dusty Yan MD Emergency Provider Active Dr. Ayesha Sainz MD Admit Provider, Attending Provider Active Team Status: Active Member Role Status Dates Dr. Talya Nichols , DO Primary Care Provider Active Dr. Dusty Yan MD Emergency Provider Active Dr. Ayesha Sainz MD Admit Provider, Atte nding Provider, Other Provider Active Team Status: Active Member Role Status Dates Dr. Talya Nichols , DO Primary Care Provider Active Dr. Dusty Yan MD Emergency Provider Active Dr. Ayesha Sainz MD Admit Provider, Other Provider Act alexia Dr. John Anders MD Attending Provider, Other Provider Active Team Status: Inactive Member Role Status Dates Dr. Talya Nichols , DO Primary Care Provider Active Dr. Dusty Yan MD Emergency Provider Active Dr. Ayesha Sainz MD Admit Provider, Other Provider Act alexia Dr. John Anders MD Attending Provider Active Team Status: Inactive Member Role Status Dates Dr. Talya Nichols , DO Primary Care Provider, Referri ng Provider Active Bart Galo FILL MANAGER, FILL MANAGER-C Attending Provider Active Team Status: Active Member Role Status Dates Dr. Talya Nichols , DO Primary Care Provider Active Dr. Yumiko Edward MD Emergency Provider Active Dr. Jennifer Pardo MD Admit Provider, Attending Provid er Active Team Status: Active Member Role Status Dates Dr. Talya Nichols DO Primary Care Provider Active Dr. Yumiko Edward MD Emergency Provider Active Dr. Jennifer Pardo MD Admit Provider, Other Provider A ctive Dr. John Anders MD Attending Provider, Other Provider Active Team Status: Inactive Member Role Status Dates Dr. Talya Nichols , DO Primary Care Provider Active Dr. Yumiko Edward MD Emergency Provider Active Dr. Jennifer Pardo MD Admit Provider, Other Provider A ctive Dr. John Anders MD Attending Provider Active Team Status: Inactive Member Role Status Dates Dr. Talya Nichols , DO Primary Care Provider Active Dr. Eyal Calderon , DO Emergency Provider Active Team Status: Inactive Member Role Status Dates Dr. Tayla Nichols , DO Primary Care Provider Active Dr. Eyal Calderon , DO Attending Provider, Emergency P rayne Active Team Status: Active Member Role Status Dates Dr. Talya Nichols DO Primary Care Provider Active Dr. Lonnie Moreno MD Emergency Provider Active Dr. Sarai Alcantara MD Admit Provider, Attending Prov ider Active Team Status: Active Member Role Status Dates Dr. Talya Nichols DO Primary Care Provider Active Dr. Fredy Joy , DO Attending Provider Active Team Status: Active Member Role Status Dates Dr. Talya Nichols DO Primary Care Provider Active Dr. Lonnie Moreno MD Emergency Provider Active Dr. Sarai Alcantara MD Admit Provider, Attending Provider, Other Provider Active Team Status: Active Member Role Status Dates Dr. Talya Nichols DO Primary Care Provider Active Dr. Lonnie Moreno MD Emergency Provider Active Dr. Sarai Alcantara MD Admit Provider, Other Provider Active Dr. Erika Godwin MD Other Provider Active Dr. Fredy Joy , DO Attending Provider Active Team Status: Active Member Role Status Dates Dr. Talya Nichols DO Primary Care Provider Active Dr. Lonnie Moreno MD Emergency Provider Active Dr. Sarai Alcantara MD Admit Provider, Other Provider Active Dr. Erika Godwin MD Attending Provider, Other Provid er Active Team Status: Inactive Member Role Status Dates Dr. Talya Nichols , DO Primary Care Provider Active Dr. Lonnie Moreno MD Emergency Provider Active Dr. Sarai Alcantara MD Admit Provider, Other Provider Active Dr. Erika Godwin MD Attending Provider Active Team Status: Active Member Role Status Dates Dr. Talya Nichols , DO Primary Care Provider Active Dr. Fredy Joy , DO Attending Provider Active Dr. Erika Godwin MD Referring Provider Active Team Status: Active Member Role Status Dates Dr. Talya Nichols , DO Primary Care Provider Active Dr. Lonnie Moreno MD Emergency Provider Active Dr. Sarai Alcantara MD Admit Provider, Other Provider Active Dr. Erika Godwin MD Referring Provider, Other Provid er Active Dr. Fredy Joy , DO Attending Provider Active Team Status: Inactive Member Role Status Dates Dr. Talya Nichols , DO Primary Care Pro vider, Attending Provider, Referring Provider Active Team Status: Inactive Member Role Status Dates Dr. Talya Nichols , DO Primary Care Provider Active Dr. Dusty Yan MD Attending Provider, Emergency Provi leandra Active Team Status: Active Member Role Status Dates Dr. Talya Nichols , DO Primary Care Provider Active Dr. Jr Thomas DO Emergency Provider Active Dr. Erika Landa , DO Admit Provider, Attending Pr ovider Active Team Status: Active Member Role Status Dates Dr. Talya Nichols , DO Primary Care Provider Active Dr. Julian Jang MD Attending Provider Active Team Status: Active Member Role Status Dates Dr. Talya Nichols , DO Primary Care Provider Active Dr. Jr Thomas DO Emergency Provider Active Dr. Erika Landa , DO Admit Provider, Other Provid er Active Dr. Anthony Sosa , DO Attending Provider, Other Pro vider Active Team Status: Active Member Role Status Dates Dr. Talya Nichols , DO Primary Care Provider Active Dr. Eyal Franklin MD Attending Provider Active Team Status: Inactive Member Role Status Dates Dr. Talya Nichols , DO Primary Care Provider Active Dr. Jr Thomas DO Emergency Provider Active Dr. Erika Landa , DO Admit Provider, Other Provid er Active Dr. Anthony Sosa , DO Attending Provider Active Team Status: Inactive Member Role Status Dates Dr. Talya Nichols , DO Primary Care Provider, Referri ng Provider Active Dr. Fredy Joy , DO Attending Provider Active Team Status: Active Member Role Status Dates Dr. Talya Nichols , DO Primary Care Provider Active Dr. Eyal Franklin MD Attending Provider Active Dr. Erika Landa , DO Referring Provider Active Team Status: Active Member Role Status Dates Dr. Talya Nichols , DO Primary Care Provider Active Dr. Eric Lester MD Emergency Provider Active Dr. Romario Blancas , DO Admit Provider, Attending Provider Active Team Status: Active Member Role Status Dates Dr. Talya Nichols , DO Primary Care Provider Active Dr. Eric Lester MD Emergency Provider Active Dr. Romario Blancas , DO Admit Provider, Other Pro vider Active Dr. Fred Ramos MD Attending Provider, Other Provi leandra Active Team Status: Active Member Role Status Dates Dr. Talya Nichols , DO Primary Care Provider Active Dr. Eric Lester MD Emergency Provider Active Dr. Romario Blancas , DO Admit Provider, Other Pro vider Active Dr. Fred Ramos MD Other Provider Active Dr. Fredy Joy , DO Attending Provider Active Team Status: Inactive Member Role Status Dates Dr. Talya Nichols , DO Primary Care Provider Active Dr. Eric Lester MD Emergency Provider Active Dr. Romario Blancas , DO Admit Provider, Other Pro vider Active Dr. Fred Ramos MD Attending Provider Active Team Status: Active Member Role Status Dates Dr. Talya Nichols , DO Primary Care Provider Active Dr. Eric Lester MD Emergency Provider Active Dr. Romario Blancas , DO Admit Provider, Other Pro vider Active Dr. Fred Ramos MD Referring Provider, Other Provi leandra Active Dr. Fredy Joy , Attending Provider Active Team Status: Active Member Role Status Dates Dr. Talya Nichols , DO Primary Care Provider Active Dr. Fredy Joy , DO Attending Provider Active Dr. Fred Ramos MD Referring Provider Active Team Status: Active Member Role Status Dates Dr. Talya Nichols , DO Primary Care Provider, Referri ng Provider Active Dr. Fredy Joy , DO Attending Provider, Other Prov ider Active Team Status: Inactive Member Role Status Dates Dr. Talya Nichols , DO Primary Care Provider Active Dr. Dimitry Lott MD Emergency Provider Active Team Status: Inactive Member Role Status Dates Dr. Tayla Nichols , DO Primary Care Provider Active Dr. Dimitry Lott MD Attending Provider, Emergency Pro vider Active Team Status: Active Member Role Status Dates Dr. Talya Nichols , DO Primary Care Provider Active Dr. Jr Thomas , DO Emergency Provider Active Dr. Michelle Washburn , DO Admit Provider, Attending Provide r Active Team Status: Active Member Role Status Dates Dr. Talya Nichols , DO Primary Care Provider Active Dr. Jr Thomas , DO Emergency Provider Active Dr. Michelle Washburn , DO Admit Provider, Att ending Provider, Other Provider Active Team Status: Active Member Role Status Dates Dr. Talya Nichols , DO Primary Care Provider Active Dr. Jr Thomas , DO Emergency Provider Active Dr. Michelle Washburn , DO Admit Provider, Other Provider Ac tive Dr. Trell Kendrick MD Attending Provider, Other Prov ider Active Dr. John Anders MD Other Provider Active Team Status: Active Member Role Status Dates Dr. Talya Nichols , DO Primary Care Provider Active Dr. Jr Thomas , DO Emergency Provider Active Dr. Michelle Washburn , DO Admit Provider, Other Provider Ac tive Dr. Trell Kendrick MD Other Provider Active Dr. John Anders MD Attending Provider, Other Provider Active Team Status: Active Member Role Status Dates Dr. Talya Nichols , DO Primary Care Provider Active Dr. Jr Thomas , DO Emergency Provider Active Dr. Michelle Washburn , DO Admit Provider, Other Provider Ac tive Dr. John Anders MD Other Provider Active Dr. Trell Kendrick MD Attending Provider, Other Prov ider Active Team Status: Active Member Role Status Dates Dr. Talay Nichols , DO Primary Care Provider Active Dr. Jr Thomas , DO Emergency Provider Active Dr. Michelle Washburn , DO Admit Provider, Other Provider Ac tive Dr. John Anders MD Attending Provider, Other Provider Active Dr. Trell Kendrick MD Other Provider Active Team Status: Inactive Member Role Status Dates Dr. Talya Nichols , DO Primary Care Provider Active Dr. Jr Thomas , DO Emergency Provider Active Dr. Michelle Washburn , DO Admit Provider, Other Provider Ac tive Dr. John Anders MD Attending Provider Active Dr. Trell Kendrick MD Other Provider Active Team Status: Inactive Member Role Status Dates Dr. Talya Magdalena , DO Primary Care Provider Active Dr. Frederick Logan DO Emergency Provider Active Team Status: Inactive Member Role Status Dates Dr. Talya Nichols , DO Primary Care Provider Active Dr. Frederick Logan DO Attending Provider, Emergency Pr ovider Active Team Status: Inactive Member Role Status Dates Dr. Talya Nichols DO Primary Care Provider, Attendi ng Provider Active Team Status: Inactive Member Role Status Dates Dr. Talya Nichols DO Primary Care Provider Active Dalton Forrest MD Emergency Provider Active Team Status: Active Member Role Status Dates Dr. Yuridia Hernandez MD Primary Care Provider Active Start: February 28, 2024 Sheryl Cruz Attending Provider Active Start: February 28, 2024 Team Status: Inactive Member Role Status Dates Dr. Yuridia Hernandez MD Primary Care Provider Active Start: February 28, 2024 End: March 02, 2024 Dr. Gerry Womack DO Emergency Provider Active Start: February 28, 2024 End: March 02, 2024 Dr. Jennifer Pardo MD Admit Provider Active Star t: February 28, 2024 End: March 02, 2024 Dr. Jennifer Pardo MD Other Provider Active Star t: February 28, 2024 End: March 02, 2024 Dr. Sarai Alcantara MD Attending Provider Active Start: February 28, 2024 End: March 02, 2024 Team Status: Active Member Role Status Dates Dr. Yuridia Hernandez MD Primary Care Provider Active Start: February 29, 2024 Dr. Gerry Womack DO Emergency Provider Active Start: February 29, 2024 Dr. Jennifer Pardo MD Admit Provider Active Star t: February 29, 2024 Dr. Jennifer Pardo MD Other Provider Active Star t: February 29, 2024 Dr. Sarai Alcantara MD Attending Provider Active Start: February 29, 2024 Dr. Sarai Alcantara MD Other Provider Active St art: February 29, 2024 Team Status: Active Member Role Status Dates Dr. Yuridia Hernandez MD Primary Care Provider Active Start: February 29, 2024 Dr. Gerry Womack DO Emergency Provider Active Start: February 29, 2024 Dr. Jennifer Pardo MD Admit Provider Active Star t: February 29, 2024 Dr. Jennifer Pardo MD Other Provider Active Star t: February 29, 2024 Dr. Sarai Alcantara MD Referring Provider Active Start: February 29, 2024 Dr. Sarai Alcantara MD Other Provider Active St art: February 29, 2024 Dr. Fredy Joy DO Attending Provider Active Start: February 29, 2024 Team Status: Active Member Role Status Dates Dr. Yuridia Hernandez MD Primary Care Provider Active Start: March 01, 2024 Dr. Fredy Joy DO Attending Provider Active Start: March 01, 2024 Dr. Sarai Alcantara MD Referring Provider Active Start: March 01, 2024 Team Status: Active Member Role Status Dates Dr. Yuridia Hernandez MD Primary Care Provider Active Start: March 01, 2024 Dr. Gerry Womack DO Emergency Provider Active Start: March 01, 2024 Dr. Jennifer Pardo MD Admit Provider Active Star t: March 01, 2024 Dr. Jennifer Pardo MD Other Provider Active Star t: March 01, 2024 Dr. Sarai Alcantara MD Attending Provider Active Start: March 01, 2024 Dr. Sarai Alcantara MD Other Provider Active St art: March 01, 2024 Team Status: Active Member Role Status Dates Dr. Yuridia Hernandez MD Primary Care Provider Active Start: March 02, 2024 Dr. Gerry Womack DO Emergency Provider Active Start: March 02, 2024 Dr. Jennifer Pardo MD Admit Provider Active Star t: March 02, 2024 Dr. Jennifer Pardo MD Other Provider Active Star t: March 02, 2024 Dr. Sarai Alcantara MD Attending Provider Active Start: March 02, 2024 Dr. Sarai Alcantara MD Other Provider Active St art: March 02, 2024 Team Status: Inactive Member Role Status Dates Dr. Yuridia Hrenandez MD Primary Care Provider Active Start: March 14, 2024 End: March 14, 2024 Dr. Yuridia Hernandez MD Attending Provider Active Start: March 14, 2024 End: March 14, 2024 Yuridia ABRAMS Referring Provider Active Start : March 14, 2024 End: March 14, 2024 Team Status: Inactive Member Role Status Dates Dr. Yuridia Hernandez MD Primary Care Provider Active Start: March 17, 2024 End: March 17, 2024 Dr. Yuridia Hernandez MD Referring Provider Active Start: March 17, 2024 End: March 17, 2024 Dr. Fredy Joy DO Attending Provider Active Start: March 17, 2024 End: March 17, 2024 Team Status: Inactive Member Role Status Dates Dr. Yuridia Hernandez MD Primary Care Provider Active Start: March 24, 2024 End: March 24, 2024 Dr. Yuridia Hernandez MD Referring Provider Active Start: March 24, 2024 End: March 24, 2024 Dr. Andre Duarte MD Attending Provider Active S tart: March 24, 2024 End: March 24, 2024 Team Status: Inactive Member Role Status Dates Dr. Yuridia Hernandez MD Primary Care Provider Active Start: April 02, 2024 End: April 02, 2024 Dr. Yuridia Hernandez MD Referring Provider Active Start: April 02, 2024 End: April 02, 2024 Dr. Andre Duarte MD Attending Provider Active S tart: April 02, 2024 End: April 02, 2024 Team Status: Active Member Role Status Dates Dr. Yuridia Hernandez MD Primary Care Provider Active Start: June 23, 2024 Dr. Eric Lester MD Emergency Provider Active Start: June 23, 2024 Dr. Tracy Angel MD Admit Provider Active St art: June 23, 2024 Dr. Tracy Angel MD Attending Provider Active Start: June 23, 2024 Dr. Tracy Angel MD Other Provider Active St art: June 23, 2024 FOR RECORDS PERTAINING TO PATIENTS WHO ARE OR HAVE BEEN ENROLLED IN A CHEMICAL DEPENDENCY/SUBSTANCEABUSE PROGRAM, SOME INFORMATION MAY BE OMITTED. This clinical summary was aggregated from multiple sources. Caution should be exercised in using it in the provision of clinical care. This summary normalizes information from multiple sources, and as a consequence, information in this document may materially change the coding, format and clinical context of patient data. In addition, data may be omitted in some cases. CLINICAL DECISIONS SHOULD BE BASED ON THE PRIMARY CLINICAL RECORDS. [facility] [employer] provides no warranty or guarantee of the accuracy or completeness of information in this document.
--- OUTSIDE RECORDS SUMMARY | 2024-08-21 00:10 | XMS RPT_ITS | CCD ---
Author Organization [facility] CliniSywa Care Team Providers Care Neighborhood Planner Name Role Phone TALYA NICHOLS DO Primary Care Physician [phone] Dr. Talya Nichols Primary Care Provider Dr. Randy Villanueva Emergency Provider Dr. Tracy Angel Admit Provider Dr. Tracy Angel Other Provider Dr. Andre Rodriguez Attending Provider 1([facility])[phone] Dr. Sarai Alcantara Attending Provider Korsedrick, Dr. Sarai Ortega Other Provider Dr. Talya Nichols Primary Care Provider Dr. Randy Villanueva Emergency Provider Dr. Tracy Angel Admit Provider Dr. Tracy Angel Other Provider Dr. Sarai Alcantara Attending Provider Dr. Julian Jang Attending Provider 1([facility])[phone] Tracy Angel Referring Provider Dr. Sarai Alcantara Other Provider Dr. Eric Lester Emergency Provider Dr. Andre Rodriguezit Provider Dr. Andre Rodriguez Attending Provider Dr. Andre Rodriguez Other Provider Dr. Anthony Sosa Other Provider 1([facility])[phone] Yuridia Blunt Attending Provider Dr. Yuridia Blunt Other Provider Dr. Anthony Sosa Attending Provider Dr. Gustavo Tariq Attending Provider Dr. John Anders Other Provider Dr. John Anders Attending Provider Dr. Dusty Yan Emergency Provider gerri, Dr. Hodge Admit Provider Emeli, Dr. Hodge [facility] Hodge Other Provider Dr. Talya Nichols Primary Care Provider Dr. Eric Lester Emergency Provider Dr. Andre Rodriguez Admit Provider Dr. Andre Rodriguez Attending Provider Dr. Andre Rodriguez Other Provider Dr. Anthony Sosa Other Provider Dr. Yuridia Blunt Attending Provider Dr. Yuridia Blunt Other Provider Dr. Anthony Sosa Attending Provider Dr. Gsutavo Tariq Attending Provider Dr. John Anders Other Provider Dr. John Anders Attending Provider Dr. Dusty Yan Emergency Provider Emeli, Dr. Hodge Admit Provider Emeli, Dr. Hodge Attending Provider Nugerri, Dr. Hodge Other Provider Dr. Talya Nichols Referring Provider [phone] Iraj STARTER CUP POWDER MIXER, STARTER CUP POWDER MIXERAileen Santiago Attending Provider Dr. Yumiko Edward Emergency Provider [phone] Jennifer Pardo Admit Provider Dr. Jennifer Pardo Other Provider Dr. Talya Nichols Primary Care Provider Dr. Talya Nichols Referring Provider [phone] [facility] STARTER CUP POWDER MIXER, STARTER CUP POWDER MIXER-Fidencio Santiago Attending Provider Dr. Talya Nichols Primary [...] Provider Dr. Erika Godwin Referring Provider Unavailable Tato, Dr. Gayle Other Provider Unavailable Friend, Dr. Daniel Attending Provider [phone] Kor, Dr. Sarai Ortega Attending Provider [phone] Dr. Erika Landa Referring Provider Unavail [facility] Dr. Talya Nichols Referring Provider [phone] Dr. [...] Other Provider Dr. Jr Thomas Emergency Provider [phone] Dr. Michelle Washburn Admit Provider Dr. Michelle [...] DO, TALYA Primary Care Unavailable JUAN MIGUEL ANIMAL CARE PROVIDER - BAR TACKER, MELONIE Galvan Attending U roland MAGDALENA DO, TALYA Primary Care Unavailable ANNY DA SILVA MD Attending Unavailable MAGDALENA DO, TALYA Primary Care Unavailable MAGDALENA DO, TALYA Primary Care Unavailable GINNY CARRILLO, KIRSTY Allan Attending Unavailable ADOLFO CARRILLO FACP, RONAL Louis Consulting Unavail able AHMET CLARK MD Consulting Unavailable MAGDALENA DO, TALYA Primary Care Unavailable ATUL ANIMAL CARE PROVIDER-BAR TACKER, DAMARIS Attending Unavai aydeele MAGDALENA DO, TALYA [...] MAGDALENA DO, TALYA Primary Care Unavailable KAPPER ANIMAL CARE PROVIDER-BAR TACKER, DELIA M Admitting Unavaila ble LI ANIMAL CARE PROVIDER-BAR TACKER, DELIA M Attending Unavaila anjelica MATA MD [...] Provider Edvin CARRILLO, Dr. Rodriguez Admit Provider [phone] Edvin CARRILLO, Dr. Rodriguez Other Provider Quinton CARRILLO, Dr. Sarai Ortega Attending Provider Quinton CARRILLO, Dr. Sarai Ortega Other Provider Quinton CARRILLO, Dr. Sarai Ortega Referring Provider [...] Primary Care Unavailable Randy Villanueva Attending Unavailable Stehpany, Jayaprakas Consulting Unavailable Jennifer Pardo Admitting Unavailable [...] Primary Care Unavailable Wu, Manuela Attending Unavailable Hernanedz, Yuridia Primary Care Unavailable Liliya Troncoso Referring [...] Primary Care Unavailable Andre Duarte Attending Unavailable Hernnadez, Yuridia Referring Unavailable Hernandez, Yuridia Primary Care [...] Unavailable Koram, Sarai Shannon Attending Unavailable Koram, Sarai Shannon Admitting Unavailable Koram, [...] Referring Unavailable Hernandez, Yuridia Attending Unavailable White, Tracy L Admitting Unavailable White, Tracy L Consulting Unavailable White, Tracy L Attending Unavailable Hernandez, Yuridia Primary Care Unavailable Hernandez, Yuridia Primary Care Unavailable Hernandez, Yuridia Attending Unavailable Sarai Alcantara Attending Unavailable Sarai Alcantara Consulting Unavailable Jennifer Pardo Attending Unavailable Jennifer Pardo Admitting Unavailable Yuridia Hernandez [...] of hand (finding), Numbness of finger (finding) [facility] Comment on above: to hand & fingers Opioid Agonists (1 source) Codeine; Translations: [codeine] Drug Allergy Stomach problem (finding) [facility] (20 sources) aliskiren / valsartan; Translations: [aliskiren-valsa rtan] Drug Allergy Numbness of hand (finding), Numbness of finger (finding) [facility] Comment on above: to hand & fingers (20 sources) Codeine; Translations: [codeine] Drug Allergy 2 Stomach problem (finding) [facility] (4 sources) aliskiren Drug Allergy 4 Other [facility] Comment on above: NUMBESS IN FINGERS (4 sources) valsartan Drug Allergy 4 [facility] Comment on above: NUMBESS IN FINGERS (1 source) aliskiren Drug Allergy 5 [facility] (1 source) Codeine Drug Allergy 5 [facility] (1 source) valsartan Drug Allergy 5 [facility] Medications Current Medications Medication Drug Class(es) [...] WHEEZING, # 360 mL, 0 Refill(s), Pharmacy: [facility], 165.1, cm, 06/08/23 22:18:00 EDT, Height, kg, 06/08/23 22:18:00 EDT, Dosing Weight Start Date: 06/11/23 Stop Date: 07/11/23 Status: Ordered Start: 01-15-2020 albuterol-ipra tropium 2.5 mg-0.5 mg/3 mL inhalation solution Dose = 3 mL, Nebulized, QID, 1 EA = 1 box. use 1 ampule via nebulizer every 6 hours as needed for shortness of breath, # 1 EA, 2 Refill(s), Pharmacy: [facility], COPD (chronic obstructive pulmonary disease), [...] Daily, # 90 tab(s), 3 Refill(s), Pharmacy: [facility], Hypercholesterolemia, 162.5, cm, 12/22/20 8:17:00 [...] Refill(s), 06/13/22 17:03:00 EDT, [facility]acy: [facility] #[id number], 165.1, cm, 06/02/22 13:23:00 EDT, Height Start Date: 06/06/22 Stop Date: 06/13/22 Status: Ordered carvedilol 3.125 mg oral tablet (20 sources) alpha-Adrenergic Greta, beta-Adrenergic Greta Start: 05-11-2023 carvedilol 3.125 mg oral tablet Dose : 3.125 mg = 1 tab(s), Oral, BID, # 180 tab(s), 1 Refill(s), Pharmacy: [facility], 165, cm, 05/11/23 13:05:00 EST, [...] BID, # 180 tab(s), 1 Refill(s), Pharmacy: [facility], NSTEMI (non-ST elevated myocardial infarction) [...] 30 tab(s), 5 Refill(s), [facility]acy: [facility] #[id number], Heart failure with preserved ejection fraction CKD [...] food., # 180 tab(s), 3 Refill(s), Pharmacy: [facility], Thrombocytopenia Anemia in CKD (chronic [...] 1 EA, 5 Refill(s), [facility]acy: [facility] #[id number], COPD with acute exacerbation, 161.5, cm, 11/10/22 [...] Daily, # 30 tab(s), 0 Refill(s), Pharmacy: [facility], 165.1, cm, 06/08/23 22:18:00 EDT, Height, [...] frequency, # 90 tab(s), 1 Refill(s), [id number], Heart failure with preserved ejection fraction Dyspnea [...] 0 Refill(s), 11/09/22 2:00:00 PM EDT, Pharmacy: [facility] #[id number], Chest congestion COPD with acute exacerbation, 161.5, [...] prescribed, # 30 tab(s), 0 Refill(s), Pharmacy: [facility] #[id number], COPD (chronic obstructive pulmonary disease) Heart failure [...] QID, # 120 EA, 5 Refill(s), Pharmacy: [facility], COPD with acute exacerbation Chronic [...] well, # 140 gram(s), 1 Refill(s), Pharmacy: [facility], Cream, 160, cm, 03/21/23 12:46:00 [...] 90 tab(s), 1 Refill(s), [facility]acy: [facility] #[id number], Hypothyroidism, 160, cm, 04/19/22 13:15:00 EST, Height, kg, 04/19/22 13:09:00 EST, Dosing Weight Start Date: 04/19/22 Stop Date: 10/16/22 Status: Ordered Start: 05-02-2021 take 1 tablet by [facility] once daily Liothyronine 25 mcg tablet Active 25 ug PO DAILY May 02, 2021 1:00am Start: 12-22-2020 End: 06-20-2021 liothyronine 25 mcg oral tab let Dose : 25 mcg = 1 tab(s), Oral, qDay, # 90 tab(s), 1 Refill(s), Pharmacy: [facility], Hypothyroidism, 162.5, cm, 12/22/20 8:17:00 [...] qDayM, # 30 tab(s), 0 Refill(s), Pharmacy: [facility], 165.1, cm, 06/08/23 22:18:00 EDT, [...] Date: 06/10/23 Stop Date: 06/10/23 Status: Completed [place]-3 Fatty Acids-Vitamin E (20 sources) Start: 05-02-2021 take 2 capsules by mouth twice daily [place]-3 Fatty Acids-Vitamin E Active 2 CAP PO TWICE A DAY May 02, 2021 12:00am Start: 05-02-2021 take 2 capsules by m outh twice daily [place]-3 Fatty Acids-Vitamin E Active 2 CAP PO [...] # 30 cap(s), 5 Refill(s), KESHA, Pharmacy: [facility], COPD without exacerbation COPD with acute exacerbation, 165.1, cm, 06/08/23 22:18:00 EDT, Height, kg, 06/08/23 22:18:00 EDT, Dosing Weight Start Date: 06/11/23 Stop Date: 12/08/23 Status: Ordered Start: 11-23-2022 End: 12-23-2022 take 2 puff(s) by inhalation once daily Spiriva Respimat 60 ACT 2.5 mcg/inh inhalation aerosol 2 puff(s), Inhalation, qDay, # 1 EA, 0 Refill(s), Pharmacy: [facility] #[id number], COPD (chronic obstructive pulmonary disease) Oxygen dependent, [...] # 30 cap(s), 5 Refill(s), KESHA, Pharmacy: [facility] #[id number], COPD (chronic obstructive pulmonary disease) COPD without exacerbation, 161.2, cm, 12/14/22 13:07:00 EDT, Height, kg, 12/14/22 13:07:00 EDT, Dosing Weight Start Date: 12/19/22 Stop Date: 06/17/23 Status: Ordered Start: 04-19-2022 End: 10-16-2022 Spiriva HandiHaler 18 mcg inhalation capsule Dose : 18 mcg = 1 cap(s), Inhalation, qDay, use two inhalations of one capsule for each dose, # 30 cap(s), 5 Refill(s), Pharmacy: [facility] #[id number], COPD (chronic obstructive pulmonary disease) COPD without exacerbation, 160, cm, 04/19/22 13:15:00 EST... Start Date: 04/19/22 Stop Date: 10/16/22 Status: Ordered Start: 09-27-2021 End: 04-18-2022 Spiriva HandiHaler 18 mcg inhalation capsule Dose : 18 mcg = 1 cap(s), Inhalation, qDay, use two inhalations of one capsule for each dose, # 30 cap(s), 1 Refill(s), Pharmacy: [facility], COPD (chronic obstructive pulmonary disease) COPD without exacerbation, 161, cm, 01/17/22 13:27:... Start Date: 02/17/22 Stop Date: 04/18/22 Status: Ordered Start: 05-02-2021 take 1 capsule by in halation once daily Tiotropium [place] (Spiriva With Handihaler) 18 mcg capsule, w/inhalation device Active 18 MCG INHALATION DAILY May 02, 2021 1:00am Start: 03-30-2021 Spiriva HandiH aler 18 mcg inhalation capsule See Instructions, 1 cap(s) use two inhalations of one capsule for each dose, # 30 cap(s), 5 Refill(s), Pharmacy: [facility], COPD (chronic obstructive pulmonary disease), 161.3, cm, 03/30/21 13:16:00 EST, Height, kg, 03/30/21 13:16:00 EST,... Start Date: 03/30/21 Status: Ordered Tiotropium [place] (Spiriva With Handihaler) 18 mcg capsule, w/inhalation device (17 sources) Start: 05-02-2021 Tiotropium Bro mide (Spiriva With Handihaler) 18 mcg capsule, w/inhalation device Active 18 ug INHALATION DAILY May 02, 2021 1:00am Start: 05-02-2021 take 1 capsule by in halation once daily Tiotropium [place] (Spiriva With Handihaler) 18 mcg capsule, w/inhalation device Active 18 MCG INHALATION DAILY May 02, 2021 12:00am Start: 05-02-2021 take 1 capsule by in halation once daily Tiotropium [place] (Spiriva With Handihaler) 18 mcg capsule, w/inhalation [...] Sunday, # 135 tab(s), 1 Refill(s), Pharmacy: [facility], (HFpEF) heart failure with preserved [...] dose, # 90 tab(s), 1 Refill(s), Pharmacy: [facility], Acute on chronic systolic CHF (congestive heart failure), 165, cm, 05/29/23 9:47:00 EDT, Height, kg, 05/29/23 9:47:00 EDT, Dosing Weight Start Date: 05/29/23 Status: Ordered Start: 05-11-2023 torsemide 5 mg oral tablet Dose : 5 mg = 1 tab(s), Oral, Daily, # 30 tab(s), 5 Refill(s), Pharmacy: [facility], Acute on chronic systolic CHF (congestive heart failure), 165, cm, 05/11/23 13:05:00 EST, Height, kg, 05/11/23 12:58:00 EST, Dosing Weight Start Date: 05/11/23 Status: Ordered Start: 05-08-2023 torsemide 5 mg oral tablet Dose : 5 mg = 1 tab(s), Oral, Daily, # 30 tab(s), 0 Refill(s), [facility]: [facility] #[id number], 165.1, cm, 05/07/23 14:29:00 EST, Height, kg, [...] qDay, # 90 tab(s), 1 Refill(s), Pharmacy: [facility], HTN (hypertension), 161, cm, 01/17/22 [...] Daily, # 30 tab(s), 5 Refill(s), Pharmacy: [facility], HTN (hypertension), 162.4, cm, 07/06/21 [...] qDay, # 90 tab(s), 3 Refill(s), Pharmacy: [facility], [facility] Anemia in CKD (chronic kidney disease), 165, [...] Refill(s) Start Date: 01/03/22 Status: Ordered Vitamins A,C,T-Wgkm-Ykdpwv (Preservision Areds) 14,320-226-200 pnkh-fn-zhgw Capsule (20 sources) Start: 12-13-2021 Vitamins A,C,E -Zinc-Copper (Preservision Areds) 14,320-226-200 cxmr-fd-xkvo Capsule Active 1 NMA PO TWICE A DAY December 13, 2021 12:00am Start: 12-13-2021 take 1 capsule by [facility] twice daily Vitamins A,C,S-Lzzt-Suddct (Preservision Areds) 14,320-226-200 eywc-qh-sfjw Capsule Active 1 CAP PO TWICE A DAY December 12, 2021 11:00pm Start: 12-13-2021 take 1 capsule by [facility] twice daily Vitamins A,C,E-Obyy-Xosear (Preservision Areds) 14,320226-200 ngnx-oh-syte Capsule Active 1 CAP PO TWICE A [...] 9:25pm Start: 03-22-2022 take 1 tablet by [facility] once daily Aspirin Low Dose 81 mg [...] daily, # 45 tab(s), 3 Refill(s), Pharmacy: [facility], HTN (hypertension), 162.5, cm, 12/22/20 [...] daily, # 1 EA, 11 Refill(s), Pharmacy: [facility], Controlled diabetes mellitus with hyperglycemia [...] daily, # 90 tab(s), 3 Refill(s), Pharmacy: [facility], Diabetes mellitus Diabetes, 162.5, cm, [...] Daily, # 90 tab(s), 3 Refill(s), Pharmacy: [facility], HTN (hypertension), 162.5, cm, 12/22/20 [...] 90 tab(s), 1 Refill(s), [facility]: [facility] #[id number], 161.5, cm, 02/09/23 14:13:00 EST, Height, kg, [...] change, # 180 tab(s), 1 Refill(s), Pharmacy: [facility], Type 2 diabetes mellitus with hemoglobin A1c goal of less than 7.5% Chronic kidney disease (CKD), 161, cm, 01/17/22 13:27:00 EST, He... Start Date: 01/17/22 Status: Ordered Start: 10-05-2021 metFORMIN 500 mg oral tablet (IR) Dose : 500 mg = 1 tab(s), Oral, BID, Note dosing change, # 180 tab(s), 0 Refill(s), Pharmacy: [facility], Type 2 diabetes mellitus with [...] BID, # 180 tab(s), 3 Refill(s), Pharmacy: [facility], DM (diabetes mellitus) Diabetes mellitus, 162.5, cm, 12/22/20 8:17:00 EDT, Height, kg, 12/22/20 8:17:00 EDT, Dosing Weight Start Date: 12/22/20 Stop Date: 12/17/21 Status: Ordered [facility] Medication (20 sources) Start: 04-25-2022 [facility] Medicatio n Oxygen 1-3 L/M via NC, 0 Refill(s), 86.3 Start Date: 04/25/22 Status: Ordered [place]-3 Fatty Acids-Vitamin E 1,000 mg Capsule (3 sources) Start: 05-02-2021 End: 12-10-2023 [place]-3 Fatty Acids-Vitamin E 1,000 mg Capsule Discontinued [...] tab(s), 0 Refill(s), [facility]: [facility] #[id number], 165.1, cm, 05/07/23 14:29:00 EST, Height, kg, [...] 120 tab(s), 0 Refill(s), [facility]acy: [facility] #[id number], GI bleed, 161.5, cm, 02/23/23 11:48:00 EST, Height, kg, 02/23/23 11:38:00 EST, Dosing Weight Start Date: 02/23/23 Status: Ordered Start: 11-23-2022 End: 01-22-2023 sucralfate 1 g oral tablet D ose : 1 gram(s) = 1 tab(s), Oral, QID, # 120 tab(s), 0 Refill(s), Pharmacy: [facility] #[id number], GI bleed, 160.5, cm, 01/19/23 11:35:00 EST, Height, kg, 01/19/23 11:35:00 EST, Dosing Weight Start Date: 01/19/23 Status: Ordered Start: 11-18-2022 End: 03-23-2023 take 1 tablet by mouth every six hours Sucralfate 1 gram tablet Discontinued 1 g PO EVERY 6 HOURS 120 30 March 09, 2023 1:19pm March 23, 2023 3:49pm Vitamins A,C,Q-Difj-Eefcjw (Preservision Areds) 4,296 mcg-226 mg-90 mg capsule (4 sources) Start: 06-27-2023 End: 11-18-2023 Vitamins A,C,Y-Hjwc-Buwljo (Preservision Areds) 4,296 mcg-226 mg-90 mg capsule Discontinued 1 NMA PO TWICE A DAY June 27, 2023 12:00am November 18, 2023 2:18pm Start: 06-27-2023 take 1 capsule by mo [facility] twice daily Vitamins A,C,O-Hcwt-Lrkurc (Preservision Areds) 4,296 mcg-226 mg-90 mg capsule [...] Coronary atherosclerosis; Translations: [Atherosclerotic heart disease of [place] coronary artery without angina pectoris] Chronic Deficiency [...] Respiratory failure; insufficiency; arrest (adult) (20 sources) Lezji-rx-gjsxror respiratory failure; Translations: [Acute and chronic respiratory [...] 1: Proximal - Moderate calcification, Proximal - [place] with 50 % Stenosis; CIRCUMFLEX ARTERY: [...] 08-01-2024 Anion gap [Moles/Vol] 12 mmol/L 07-24 [facility] BUN/creatinine ratioOrdered By: Manuela Washburn on 08-01-2024 Urea nitrogen/Creatinine [Mass ratio] 27.6 mg/mg High 12-29 [facility] Carbon dioxide, total [Moles /volume] in Central venous bloodOrdered By: Manuela Washburn on 08-01-2024 CO2 [Moles/Vol] 31.1 mmol/L 21.0-32.0 [facility] Chloride assayOrdered By: Nadege Washburn on 08-01-2024 Chloride [Moles/Vol] 101 mmol/L 98-108 [facility] Glomerular filtration rate ( GFR) estimation/1.73 sq m using serum, plasma, or whole bOrdered By: Manuela Washburn on 08-01-2024 GFR/1.73 sq M.predicted among non-blacks MDRD (S/P/Bld) [Vol rate/Area] 31 mL/min/{1.73_m2} Low >60 [facility] Comment on above: mL/min/1.73m2 CKD-EP I Creatinine Equation (2020) Potassium measurement (mass/ volume)Ordered By: Manuela Washburn on 08-01-2024 Potassium (Unsp spec) [Mass/Vol] 3.7 mmol/L 3.3-5.1 [facility] Renal Profileon 08-01-2024 Albumin [Mass/Vol] 3.9 g/dL Normal 3.4-4.8 [facility] Comment on above: Performed By: #### L 500.3600 ####[facility] [address] [place], [address] BUN/CRE 27.6 RATIO High 10-20 [facility] Comment on above: Performed By: #### L 500.3600 ####[facility] [address] [place], [address] Calcium [Mass/Vol] 9.8 mg/dL Normal 7.6-11.0 [facility] Comment on above: Performed By: #### L 500.3600 ####[facility] [address] [place], [address] Chloride [Moles/Vol] 101 mmol/L Normal 98-108 [facility] Comment on above: Performed By: #### L 500.3600 ####[facility] [address] [place], [address] CO2 [Moles/Vol] 31.1 mmol/L Normal 21.0-32.0 [facility] Comment on above: Performed By: #### L 500.3600 ####[facility] [address] [place], [address] Creatinine [Mass/Vol] 2.08 mg/dL High 0.70-1.20 [facility] Comment on above: Performed By: #### L 500.3600 ####[facility] [address] [place], [address] GAP 12 Normal 5-15 [facility] Comment on above: Performed By: #### L 500.3600 ####[facility] [address] [place], [address] GFR/1.73 sq M.predicted among non-blacks MDRD (S/P/Bld) [Vol rate/Area] 31 mL/min/{1.73_m2} Low >60 [facility] Comment on above: Result Comment: mL/m in/1.73m2 CKD-EPI Creatinine Equation (2020) Performed By: #### L 500.3600 ####[facility] [address] [place], [address] Glucose [Mass/Vol] 162 mg/dL High 70-99 [facility] Comment on above: Performed By: #### L 500.3600 ####[facility] [address] [place], [address] Phosphate [Mass/Vol] 3.3 mg/dL Normal 2.7-4.5 [facility] Comment on above: Performed By: #### L 500.3600 ####[facility] [address] [place], [address] Potassium [Moles/Vol] 3.7 mmol/L Normal 3.3-5.1 [facility] Comment on above: Performed By: #### L 500.3600 ####[facility] [address] [place], [address] Sodium [Moles/Vol] 145 mmol/L Normal 133-145 [facility] Comment on above: Performed By: #### L 500.3600 ####[facility] [address] [place], [address] Urea nitrogen [Mass/Vol] 58 mg/dL High 4-19 [facility] Comment on above: Performed By: #### L 500.3600 ####[facility] [address] [place], [address] Serum creatinine measurement (mass/volume)Ordered By: Manuela Washburn on 08-01-2024 Creatinine [Mass/Vol] 2.08 mg/dL High 0.70-1.20 [facility] Serum glucose measurement (m ass/volume)Ordered By: Manuela Washburn on 08-01-2024 Glucose [Mass/Vol] 162 mg/dL High 70-99 [facility] Serum or plasma albumin [place]mira urement (mass/volume)Ordered By: Manuela Washburn on 08-01-2024 Albumin [Mass/Vol] 3.9 g/dL 3.4-4.8 [facility] Serum or plasma calcium [place]mira urement (mass/volume)Ordered By: Manuela Washburn on 08-01-2024 Calcium [Mass/Vol] 9.8 mg/dL 7.6-11.0 [facility] Serum or plasma urea nitroge n measurement (mass/volume)Ordered By: Manuela Washburn on 08-01-2024 Urea nitrogen [Mass/Vol] 58 mg/dL High 4-19 [facility] Sodium levelOrdered By: Carline Washburn on 08-01-2024 Sodium [Moles/Vol] 145 mmol/L 133-145 [facility] Gastroenterology Visit Repor ton 07-14-2024 Gastroenterology Visit Report Normal [facility] Anion gap in Serum or Plasma Ordered By: Manuela Washburn on 07-04-2024 Anion gap [Moles/Vol] 14 mmol/L 5-15 [facility] BUN/creatinine ratioOrdered By: Manuela Washburn on 07-04-2024 Urea nitrogen/Creatinine [Mass ratio] 36.2 mg/mg High 10-20 [facility] Basic Metabolic Profile (BMP )on 07-04-2024 BUN/CRE 36.2 RATIO High 12-29 [facility] Comment on above: Performed By: #### L 500.2500, L509.1000 ####[facility] [address] [place], [address] Calcium [Mass/Vol] 8.9 mg/dL Normal 7.6-11.0 [facility] Comment on above: Performed By: #### L 500.2500, L509.1000 ####[facility] [address] [place], [address] Chloride [Moles/Vol] 108 mmol/L Normal 98-108 [facility] Comment on above: Performed By: #### L 500.2500, L509.1000 ####[facility] [address] [place], [address] CO2 [Moles/Vol] 23.7 mmol/L Normal 21.0-32.0 [facility] Comment on above: Performed By: #### L 500.2500, L509.1000 ####[facility] [address] [place], [address] Creatinine [Mass/Vol] 2.93 mg/dL High 0.70-1.20 [facility] Comment on above: Performed By: #### L 500.2500, L509.1000 ####[facility] [address] [place], [address] GAP 14 Normal 5-15 [facility] Comment on above: Performed By: #### L 500.2500, L509.1000 ####[facility] [address] [place], [address] GFR/1.73 sq M.predicted among non-blacks MDRD (S/P/Bld) [Vol rate/Area] 20 mL/min/{1.73_m2} Low >60 [facility] Comment on above: Result Comment: mL/m in/1.73m2 CKD-EPI Creatinine Equation (2020) Performed By: #### L 500.2500, L509.1000 ####[facility] [address] [place], [address] Glucose [Mass/Vol] 157 mg/dL High 70-99 [facility] Comment on above: Performed By: #### L 500.2500, L509.1000 ####[facility] [address] [place], [address] Potassium [Moles/Vol] 4.1 mmol/L Normal 3.3-5.1 [facility] Comment on above: Performed By: #### L 500.2500, L509.1000 ####[facility] [address] [place], [address] Sodium [Moles/Vol] 145 mmol/L Normal 133-145 [facility] Comment on above: Performed By: #### L 500.2500, L509.1000 ####[facility] [address] [place], [address] Urea nitrogen [Mass/Vol] 106 mg/dL Invalid Interpretation Code 06-28 [facility] Comment on above: Result Comment: Crit ical Result(s) Called at: 1900 by: SCOTT BAILEY TO ??Results read back by same. Performed By: #### L 500.2500, L509.1000 ####[facility] [address] [place], [address] Carbon dioxide, total [Moles /volume] in Central venous bloodOrdered By: Manuela Washburn on 07-04-2024 CO2 [Moles/Vol] 23.7 mmol/L 21.0-32.0 [facility] Chloride assayOrdered By: Nadege Washburn on 07-04-2024 Chloride [Moles/Vol] 108 mmol/L 98-108 [facility] Glomerular filtration rate ( GFR) estimation/1.73 sq m using serum, plasma, or whole bOrdered By: Manuela Washburn on 07-04-2024 GFR/1.73 sq M.predicted among non-blacks MDRD (S/P/Bld) [Vol rate/Area] 20 mL/min/{1.73_m2} Low >60 [facility] Comment on above: mL/min/1.73m2 CKD-EP I Creatinine Equation (2020) PTHINon 07-04-2024 PTH 154 pg/mL High 11-61 [facility] Comment on above: Performed By: #### L 500.2500, L509.1000 ####[facility] [address] [place], [address] Potassium measurement (mass/ volume)Ordered By: Manuela Washburn on 07-04-2024 Potassium (Unsp spec) [Mass/Vol] 4.1 mmol/L 3.3-5.1 [facility] Serum creatinine measurement (mass/volume)Ordered By: Manuela Washburn on 07-04-2024 Creatinine [Mass/Vol] 2.93 mg/dL High 0.70-1.20 [facility] Serum glucose measurement (m ass/volume)Ordered By: Manuela Washburn on 07-04-2024 Glucose [Mass/Vol] 157 mg/dL High 70-99 [facility] Serum or plasma calcium elmira urement (mass/volume)Ordered By: Manuela Washburn on 07-04-2024 Calcium [Mass/Vol] 8.9 mg/dL 7.6-11.0 [facility] Serum or plasma urea nitroge n measurement (mass/volume)Ordered By: Manuela Washburn on 07-04-2024 Urea nitrogen [Mass/Vol] 106 mg/dL High 06-28 [facility] Comment on above: Critical Result(s) C alled at: 1900 by: SCOTT BAILEY TO DR. AVITIA Results read back by same. Sodium levelOrdered By: Carline Washburn on 07-04-2024 Sodium [Moles/Vol] 145 mmol/L 133-145 [facility] Basic Metabolic Profile (BMP )on 07-02-2024 BUN Normal 06-28 [facility] Comment on above: Result Comment: Canc elled via OM: Order cancelled - Patient discharged Performed By: #### L 500.2500, L100.0100 ####[facility] [address] [place], [address] BUN/CRE Normal 12-29 [facility] Comment on above: Result Comment: Canc elled via OM: Order cancelled - Patient discharged Performed By: #### L 500.2500, L100.0100 ####[facility] [address] [place], [address] Calcium Normal 7.6-11.0 [facility] Comment on above: Result Comment: Canc elled via OM: Order cancelled - Patient discharged Performed By: #### L 500.2500, L100.0100 ####[facility] [address] [place], [address] CL Normal 98-108 [facility] Comment on above: Result Comment: Canc elled via OM: Order cancelled - Patient discharged Performed By: #### L 500.2500, L100.0100 ####[facility] [address] [place], [address] CO2 Normal 21.0-32.0 [facility] Comment on above: Result Comment: Canc elled via OM: Order cancelled - Patient discharged Performed By: #### L 500.2500, L100.0100 ####[facility] [address] [place], [address] CREAT,SERUM Normal 0.70-1.20 [facility] Comment on above: Result Comment: Canc elled via OM: Order cancelled - Patient discharged Performed By: #### L 500.2500, L100.0100 ####[facility] [address] [place], [address] eGFR Normal >60 [facility] Comment on above: Result Comment: Canc elled via OM: Order cancelled - Patient discharged Performed By: #### L 500.2500, L100.0100 ####[facility] [address] [place], [address] GAP Normal 5-15 [facility] Comment on above: Result Comment: Canc elled via OM: Order cancelled - Patient discharged Performed By: #### L 500.2500, L100.0100 ####[facility] [address] [place], [address] GLU Normal 70-99 [facility] Comment on above: Result Comment: Canc elled via OM: Order cancelled - Patient discharged Performed By: #### L 500.2500, L100.0100 ####[facility] [address] [place], [address] Potassium Normal 3.3-5.1 [facility] Comment on above: Result Comment: Canc elled via OM: Order cancelled - Patient discharged Performed By: #### L 500.2500, L100.0100 ####[facility] [address] [place], [address] Basic Metabolic Profile (BMP) Normal 133-145 [facility] Comment on above: Result Comment: Canc elled via OM: Order cancelled - Patient discharged Performed By: #### L 500.2500, L100.0100 ####[facility] [address] [place], [address] CBC W/Diff, Automatedon 04-2 Absolute Neut Normal 2.0-7.7 [facility] Comment on above: Result Comment: Canc elled via OM: Order cancelled - Patient discharged Performed By: #### L 500.2500, L100.0100 ####[facility] [address] [place], [address] HCT Normal 40-54 [facility] Comment on above: Result Comment: Canc elled via OM: Order cancelled - Patient discharged Performed By: #### L 500.2500, L100.0100 ####[facility] [address] [place], [address] HGB Normal 13.0-16.5 [facility] Comment on above: Result Comment: Canc elled via OM: Order cancelled - Patient discharged Performed By: #### L 500.2500, L100.0100 ####[facility] [address] [place], [address] MCH Normal 27.0-32.0 [facility] Comment on above: Result Comment: Canc elled via OM: Order cancelled - Patient discharged Performed By: #### L 500.2500, L100.0100 ####[facility] [address], [address] MCHC Normal 32-36 [facility] Comment on above: Result Comment: Canc elled via OM: Order cancelled - Patient discharged Performed By: #### L 500.2500, L100.0100 ####[facility] [address] [place], [address] MCV Normal 80-94 [facility] Comment on above: Result Comment: Canc elled via OM: Order cancelled - Patient discharged Performed By: #### L 500.2500, L100.0100 ####[facility] [address] [place], [address] NEUT% Normal 47-70 [facility] Comment on above: Result Comment: Canc elled via OM: Order cancelled - Patient discharged Performed By: #### L 500.2500, L100.0100 ####[facility] [address] [place], [address] PLT Normal 150-450 [facility] Comment on above: Result Comment: Canc elled via OM: Order cancelled - Patient discharged Performed By: #### L 500.2500, L100.0100 ####[facility] [address] [place], [address] RBC Normal 4.6-6.2 [facility] Comment on above: Result Comment: Canc elled via OM: Order cancelled - Patient discharged Performed By: #### L 500.2500, L100.0100 ####[facility] [address] [place], [address] RDW CV Normal 11.6-14.6 [facility] Comment on above: Result Comment: Canc elled via OM: Order cancelled - Patient discharged Performed By: #### L 500.2500, L100.0100 ####[facility] [address] [place], [address] RDW SD Normal 35.1-43.9 [facility] Comment on above: Result Comment: Canc elled via OM: Order cancelled - Patient discharged Performed By: #### L 500.2500, L100.0100 ####[facility] [address] [place], [address] WBC Normal 4.4-11.0 [facility] Comment on above: Result Comment: Canc elled via OM: Order cancelled - Patient discharged Performed By: #### L 500.2500, L100.0100 ####[facility] [address] [place], [address] Basic Metabolic Profile (BMP )on 07-01-2024 BUN Normal 4-19 [facility] Comment on above: Result Comment: Canc elled via OM: Order cancelled - Patient discharged Performed By: #### L 500.2500, L100.0100 ####[facility] [address] [place], [address] BUN/CRE Normal 10-20 [facility] Comment on above: Result Comment: Canc elled via OM: Order cancelled - Patient discharged Performed By: #### L 500.2500, L100.0100 ####[facility] [address] [place], [address] Calcium Normal 7.6-11.0 [facility] Comment on above: Result Comment: Canc elled via OM: Order cancelled - Patient discharged Performed By: #### L 500.2500, L100.0100 ####[facility] [address] [place], [address] CL Normal 98-108 [facility] Comment on above: Result Comment: Canc elled via OM: Order cancelled - Patient discharged Performed By: #### L 500.2500, L100.0100 ####[facility] [address] [place], [address] CO2 Normal 21.0-32.0 [facility] Comment on above: Result Comment: Canc elled via OM: Order cancelled - Patient discharged Performed By: #### L 500.2500, L100.0100 ####[facility] [address] [place], [address] CREAT,SERUM Normal 0.70-1.20 [facility] Comment on above: Result Comment: Canc elled via OM: Order cancelled - Patient discharged Performed By: #### L 500.2500, L100.0100 ####[facility] [address] [place], [address] eGFR Normal >60 [facility] Comment on above: Result Comment: Canc elled via OM: Order cancelled - Patient discharged Performed By: #### L 500.2500, L100.0100 ####[facility] [address] [place], [address] GAP Normal 5-15 [facility] Comment on above: Result Comment: Canc elled via OM: Order cancelled - Patient discharged Performed By: #### L 500.2500, L100.0100 ####[facility] [address] [place], [address] GLU Normal 70-99 [facility] Comment on above: Result Comment: Canc elled via OM: Order cancelled - Patient discharged Performed By: #### L 500.2500, L100.0100 ####[facility] [address] [place], [address] Potassium Normal 3.3-5.1 [facility] Comment on above: Result Comment: Canc elled via OM: Order cancelled - Patient discharged Performed By: #### L 500.2500, L100.0100 ####[facility] [address] [place], [address] Basic Metabolic Profile (BMP) Normal 133-145 [facility] Comment on above: Result Comment: Canc elled via OM: Order cancelled - Patient discharged Performed By: #### L 500.2500, L100.0100 ####[facility] [address] [place], [address] CBC W/Diff, Automatedon 04-2 Absolute Neut Normal 2.0-7.7 [facility] Comment on above: Result Comment: Canc elled via OM: Order cancelled - Patient discharged Performed By: #### L 500.2500, L100.0100 ####[facility] [address] [place], [address] HCT Normal 40-54 [facility] Comment on above: Result Comment: Canc elled via OM: Order cancelled - Patient discharged Performed By: #### L 500.2500, L100.0100 ####[facility] [address] [place], [address] HGB Normal 13.0-16.5 [facility] Comment on above: Result Comment: Canc elled via OM: Order cancelled - Patient discharged Performed By: #### L 500.2500, L100.0100 ####[facility] [address] [place], [address] MCH Normal 27.0-32.0 [facility] Comment on above: Result Comment: Canc elled via OM: Order cancelled - Patient discharged Performed By: #### L 500.2500, L100.0100 ####[facility] [address], [address] MCHC Normal 32-36 [facility] Comment on above: Result Comment: Canc elled via OM: Order cancelled - Patient discharged Performed By: #### L 500.2500, L100.0100 ####[facility] [address], [address] MCV Normal 80-94 [facility] Comment on above: Result Comment: Canc elled via OM: Order cancelled - Patient discharged Performed By: #### L 500.2500, L100.0100 ####[facility] [address] [place], [address] NEUT% Normal 47-70 [facility] Comment on above: Result Comment: Canc elled via OM: Order cancelled - Patient discharged Performed By: #### L 500.2500, L100.0100 ####[facility] [address] [place], [address] PLT Normal 150-450 [facility] Comment on above: Result Comment: Canc elled via OM: Order cancelled - Patient discharged Performed By: #### L 500.2500, L100.0100 ####[facility] [address] [place], [address] RBC Normal 4.6-6.2 [facility] Comment on above: Result Comment: Canc elled via OM: Order cancelled - Patient discharged Performed By: #### L 500.2500, L100.0100 ####[facility] [address] [place], [address] RDW CV Normal 11.6-14.6 [facility] Comment on above: Result Comment: Canc elled via OM: Order cancelled - Patient discharged Performed By: #### L 500.2500, L100.0100 ####[facility] [address] [place], [address] RDW SD Normal 35.1-43.9 [facility] Comment on above: Result Comment: Canc elled via OM: Order cancelled - Patient discharged Performed By: #### L 500.2500, L100.0100 ####[facility] [address] [place], [address] WBC Normal 4.4-11.0 [facility] Comment on above: Result Comment: Canc elled via OM: Order cancelled - Patient discharged Performed By: #### L 500.2500, L100.0100 ####[facility] [address] [place], [address] Absolute lymphocyte countOrd ered By: Yuridia Hernandez on 06-30-2024 Lymphocytes Auto (Unsp spec) [#/Vol] 2.06 10*3/uL 0.83-4.51 [facility] Absolute neutrophil countOrd ered By: Yuridia Hernandez on 06-30-2024 Neutrophils (Bld) [#/Vol] 11.8 10*3/uL High 2.0-7.7 [facility] Anion gap in Serum or Plasma Ordered By: Yuridia Hernandez on 06-30-2024 Anion gap [Moles/Vol] 16 mmol/L High 5-15 [facility] Automated lymphocyte count a s percentage of total leukocytesOrdered By: Yuridia Hernandez on 06-30-2024 Lymphocytes/100 WBC Auto (Unsp spec) 13.2 % Low 19-41 [facility] BUN/creatinine ratioOrdered By: Yuridia Hernandez on 06-30-2024 Urea nitrogen/Creatinine [Mass ratio] 36.0 mg/mg High 10-20 [facility] Basic Metabolic Profile (BMP )on 06-30-2024 BUN Normal 4-19 [facility] Comment on above: Result Comment: Canc elled via OM: Order cancelled - Patient discharged Performed By: #### L 500.2500, L100.0100 ####[facility] [address] [place], [address] BUN/CRE Normal 10-20 [facility] Comment on above: Result Comment: Canc elled via OM: Order cancelled - Patient discharged Performed By: #### L 500.2500, L100.0100 ####[facility] [address] [place], [address] Calcium Normal 7.6-11.0 [facility] Comment on above: Result Comment: Canc elled via OM: Order cancelled - Patient discharged Performed By: #### L 500.2500, L100.0100 ####[place] [facility] [address] [place], [address] CL Normal 98-108 [facility] Comment on above: Result Comment: Canc elled via OM: Order cancelled - Patient discharged Performed By: #### L 500.2500, L100.0100 ####[facility] [address] [place], [address] CO2 Normal 21.0-32.0 [facility] Comment on above: Result Comment: Canc elled via OM: Order cancelled - Patient discharged Performed By: #### L 500.2500, L100.0100 ####[facility] [address] [place], [address] CREAT,SERUM Normal 0.70-1.20 [facility] Comment on above: Result Comment: Canc elled via OM: Order cancelled - Patient discharged Performed By: #### L 500.2500, L100.0100 ####[facility] [address] [place], [address] eGFR Normal >60 [facility] Comment on above: Result Comment: Canc elled via OM: Order cancelled - Patient discharged Performed By: #### L 500.2500, L100.0100 ####[facility] [address] [place], [address] GAP Normal 5-15 [facility] Comment on above: Result Comment: Canc elled via OM: Order cancelled - Patient discharged Performed By: #### L 500.2500, L100.0100 ####[facility] [address] [place], [address] GLU Normal 70-99 [facility] Comment on above: Result Comment: Canc elled via OM: Order cancelled - Patient discharged Performed By: #### L 500.2500, L100.0100 ####[facility] [address] [place], [address] Potassium Normal 3.3-5.1 [facility] Comment on above: Result Comment: Canc elled via OM: Order cancelled - Patient discharged Performed By: #### L 500.2500, L100.0100 ####[facility] [address] [place], [address] Basic Metabolic Profile (BMP) Normal 133-145 [facility] Comment on above: Result Comment: Canc elled via OM: Order cancelled - Patient discharged Performed By: #### L 500.2500, L100.0100 ####[facility] [address] [place], [address] Basophil percentageOrdered B y: Yuridia Hernandez on 06-30-2024 Basophils/100 WBC (Bld) 0.1 % 0-1 [facility] Bilirubin, totalOrdered By: Yuridia Hernandez on 06-30-2024 Bilirubin [Mass/Vol] 0.34 mg/dL 0.00-1.30 [facility] CBC W/Diff, Automatedon -04 12-2024 Absolute Lymph 2.06 X10 3/uL Normal 0.83-4.51 [facility] Comment on above: Performed By: #### L 500.4050, L100.0100, L503.7505 ####[facility] [address] [place], [address] Absolute Neut 11.8 X10 3/uL High 2.0-7.7 [facility] Comment on above: Performed By: #### L 500.4050, L100.0100, L503.7505 ####[facility] [address] [place], [address] Basophils/100 WBC (Bld) 0.1 % Normal 0-1 [facility] Comment on above: Performed By: #### L 500.4050, L100.0100, L503.7505 ####[facility] [address] [place], [address] Eosinophils/100 WBC (Bld) 3.4 % Normal 0-5 [facility] Comment on above: Performed By: #### L 500.4050, L100.0100, L503.7505 ####[facility] [address] [place], [address] Erythrocyte distribution width (RBC) [Ratio] 13.2 % Normal 11.6-14.6 [facility] Comment on above: Performed By: #### L 500.4050, L100.0100, L503.7505 ####[facility] [address] [place], [address] Hematocrit (Bld) [Volume fraction] 29.6 % Low 40-54 [facility] Comment on above: Performed By: #### L 500.4050, L100.0100, L503.7505 ####[facility] [address] [place], [address] Hemoglobin (Bld) [Mass/Vol] 10.0 g/dL Low 13.0-16.5 [facility] Comment on above: Performed By: #### L 500.4050, L100.0100, L503.7505 ####[facility] [address] [place], [address] IG% 0.500 Normal 0.0-0.9 [facility] Comment on above: Result Comment: IG% - Immature Granulocytes (promyelocytes, myelocytes andmetamyelocytes) > 1% indicates that a LEFT SHIFT is Present. Performed By: #### L 500.4050, L100.0100, L503.7505 ####[facility] [address] [place], [address] Lymphocytes/100 WBC (Bld) 13.2 % Low 19-41 [facility] Comment on above: Performed By: #### L 500.4050, L100.0100, [id number] ####[facility] [address] [place], [address] MCH (RBC) [Entitic mass] 31.3 pg Normal 27.0-32.0 [facility] Comment on above: Performed By: #### L 500.4050, L100.0100, L503.7505 ####[facility] [address] [place], [address] MCHC (RBC) [Mass/Vol] 33.8 g/dL Normal 32-36 [facility] Comment on above: Performed By: #### L 500.4050, L100.0100, [id number] ####[facility] [address] [place], [address] MCV (RBC) [Entitic vol] 92.8 fL Normal 80-94 [facility] Comment on above: Performed By: #### L 500.4050, L100.0100, [id number] ####[facility] [address] [place], [address] Monocytes/100 WBC (Bld) 7.5 % Normal 0-10 [facility] Comment on above: Performed By: #### L 500.4050, L100.0100, [id number] ####[facility] [address] [place], [address] Neutrophils/100 WBC (Bld) 75.3 % High 47-70 [facility] Comment on above: Performed By: #### L 500.4050, L100.0100, [id number] ####[facility] [address] [place], [address] Nucleated RBC (Bld) [#/Vol] 0 10*3/uL Normal 0-5 [facility] Comment on above: Performed By: #### L 500.4050, L100.0100, L503.7505 ####[facility] [address] [place], [address] Platelet mean volume (Bld) [Entitic vol] 11.1 fL Normal 6.2-12.0 [facility] Comment on above: Performed By: #### L 500.4050, L100.0100, [id number] ####[facility] [address] [place], [address] Platelets (Bld) [#/Vol] 174 10*3/uL Normal 150-450 [facility] Comment on above: Performed By: #### L 500.4050, L100.0100, [id number] ####[facility] [address] [place], [address] RBC (Bld) [#/Vol] 3.19 10*6/uL Low 4.6-6.2 [facility] Comment on above: Performed By: #### L 500.4050, L100.0100, L503.7505 ####[facility] [address] [place], [address] RDW SD 44.5 fl High 35.1-43.9 [facility] Comment on above: Performed By: #### L 500.4050, L100.0100, L503.7505 ####[facility] [address] [place], [address] WBC (Bld) [#/Vol] 15.7 10*3/uL High 4.4-11.0 [facility] Comment on above: Performed By: #### L 500.4050, L100.0100, L503.7505 ####[facility] [address] [place], [address] Absolute Neut Normal 2.0-7.7 [facility] Comment on above: Result Comment: Canc elled via OM: Order cancelled - Patient discharged Performed By: #### L 500.2500, L100.0100 ####[facility] [address] [place], [address] HCT Normal 40-54 [facility] Comment on above: Result Comment: Canc elled via OM: Order cancelled - Patient discharged Performed By: #### L 500.2500, L100.0100 ####[facility] [address] [place], [address] HGB Normal 13.0-16.5 [facility] Comment on above: Result Comment: Canc elled via OM: Order cancelled - Patient discharged Performed By: #### L 500.2500, L100.0100 ####[facility] [address] [place], [address] MCH Normal 27.0-32.0 [facility] Comment on above: Result Comment: Canc elled via OM: Order cancelled - Patient discharged Performed By: #### L 500.2500, L100.0100 ####[facility] [address] [place], [address] MCHC Normal 32-36 [facility] Comment on above: Result Comment: Canc elled via OM: Order cancelled - Patient discharged Performed By: #### L 500.2500, L100.0100 ####[facility] [address] [place], [address] MCV Normal 80-94 [facility] Comment on above: Result Comment: Canc elled via OM: Order cancelled - Patient discharged Performed By: #### L 500.2500, L100.0100 ####[facility] [address] [place], [address] NEUT% Normal 47-70 [facility] Comment on above: Result Comment: Canc elled via OM: Order cancelled - Patient discharged Performed By: #### L 500.2500, L100.0100 ####[facility] [address] [place], [address] PLT Normal 150-450 [facility] Comment on above: Result Comment: Canc elled via OM: Order cancelled - Patient discharged Performed By: #### L 500.2500, L100.0100 ####[facility] [address] [place], [address] RBC Normal 4.6-6.2 [facility] Comment on above: Result Comment: Canc elled via OM: Order cancelled - Patient discharged Performed By: #### L 500.2500, L100.0100 ####[facility] [address] [place], [address] RDW CV Normal 11.6-14.6 [facility] Comment on above: Result Comment: Canc elled via OM: Order cancelled - Patient discharged Performed By: #### L 500.2500, L100.0100 ####[facility] [address] [place], [address] RDW SD Normal 35.1-43.9 [facility] Comment on above: Result Comment: Canc elled via OM: Order cancelled - Patient discharged Performed By: #### L 500.2500, L100.0100 ####[facility] [address] [place], [address] WBC Normal 4.4-11.0 [facility] Comment on above: Result Comment: Canc elled via OM: Order cancelled - Patient discharged Performed By: #### L 500.2500, L100.0100 ####[facility] [address] [place], [address] Carbon dioxide, total [Moles /volume] in Central venous bloodOrdered By: Yuridia Hernandez on 06-30-2024 CO2 [Moles/Vol] 22.7 mmol/L 21.0-32.0 [facility] Chest PA and Lateralon 06-30 Chest PA and Lateral Normal [facility] Chloride assayOrdered By: Mike Hernandez on 06-30-2024 Chloride [Moles/Vol] 102 mmol/L 98-108 [facility] Comprehensive Metabolic Prof ilon 06-30-2024 Albumin [Mass/Vol] 3.9 g/dL Normal 3.4-4.8 [facility] Comment on above: Performed By: #### L 500.4050, L100.0100, L503.7505 ####[facility] [address] [place], [address] Albumin/Globulin [Mass ratio] 1.5 {ratio} Normal 0.9-2.4 [facility] Comment on above: Performed By: #### L 500.4050, L100.0100, L503.7505 ####[facility] [address] [place], [address] ALK PHOS 80 U/L Normal 40-129 [facility] Comment on above: Performed By: #### L 500.4050, L100.0100, L503.7505 ####[facility] [address] [place], [address] ALT [Catalytic activity/Vol] 149 U/L High <=46 [facility] Comment on above: Performed By: #### L 500.4050, L100.0100, L503.7505 ####[facility] [address] [place], [address] AST [Catalytic activity/Vol] 61 U/L High <=37 [facility] Comment on above: Performed By: #### L 500.4050, L100.0100, L503.7505 ####[facility] [address] [place], [address] Bilirubin [Mass/Vol] 0.34 mg/dL Normal 0.00-1.30 [facility] Comment on above: Performed By: #### L 500.4050, L100.0100, L503.7505 ####[facility] [address] [place], [address] BUN/CRE 36.0 RATIO High 10-20 [facility] Comment on above: Performed By: #### L 500.4050, L100.0100, L503.7505 ####[facility] [address] [place], [address] Calcium [Mass/Vol] 9.1 mg/dL Normal 7.6-11.0 [facility] Comment on above: Performed By: #### L 500.4050, L100.0100, L503.7505 ####[facility] [address] [place], [address] Chloride [Moles/Vol] 102 mmol/L Normal 98-108 [facility] Comment on above: Performed By: #### L 500.4050, L100.0100, L503.7505 ####[facility] [address] [place], [address] CO2 [Moles/Vol] 22.7 mmol/L Normal 21.0-32.0 [facility] Comment on above: Performed By: #### L 500.4050, L100.0100, L503.7505 ####[facility] [address] [place], [address] Creatinine [Mass/Vol] 3.22 mg/dL High 0.70-1.20 [facility] Comment on above: Performed By: #### L 500.4050, L100.0100, L503.7505 ####[facility] [address] [place], [address] GAP 16 High 5-15 [facility] Comment on above: Performed By: #### L 500.4050, L100.0100, L503.7505 ####[facility] [address] [place], [address] GFR/1.73 sq M.predicted among non-blacks MDRD (S/P/Bld) [Vol rate/Area] 18 mL/min/{1.73_m2} Low >60 [facility] Comment on above: Result Comment: mL/m in/1.73m2 CKD-EPI Creatinine Equation (2020) Performed By: #### L 500.4050, L100.0100, L503.7505 ####[facility] [address] [place], [address] Globulin (S) [Mass/Vol] 2.7 g/dL Normal 2.2-4.2 [facility] Comment on above: Performed By: #### L 500.4050, L100.0100, L503.7505 ####[facility] [address] [place], [address] Glucose [Mass/Vol] 257 mg/dL High 70-99 [facility] Comment on above: Performed By: #### L 500.4050, L100.0100, L503.7505 ####[facility] [address] [place], [address] Potassium [Moles/Vol] 3.6 mmol/L Normal 3.3-5.1 [facility] Comment on above: Performed By: #### L 500.4050, L100.0100, L503.7505 ####[facility] [address] [place], [address] Sodium [Moles/Vol] 141 mmol/L Normal 133-145 [facility] Comment on above: Performed By: #### L 500.4050, L100.0100, L503.7505 ####[facility] [address] [place], [address] T PROT 6.6 g/dL Normal 5.9-8.4 [facility] Comment on above: Performed By: #### L 500.4050, L100.0100, L503.7505 ####[facility] [address] [place], [address] Urea nitrogen [Mass/Vol] 116 mg/dL Invalid Interpretation Code 06-28 [facility] Comment on above: Result Comment: Crit ical Result(s) Called at: 2129 by:??DR.C GARCIA Resultsread back by same. Performed By: #### L 500.4050, L100.0100, L503.7505 ####[facility] [address] [place], [place], [address] Eosinophil percentageOrdered By: Yuridia Hernandez on 06-30-2024 Eosinophils/100 WBC (Bld) 3.4 % 0-5 [facility] Erythrocyte distribution wid th ratioOrdered By: Yuridia Hernandez on 06-30-2024 Erythrocyte distribution width (RBC) [Ratio] 13.2 % 11.6-14.6 [facility] Erythrocyte distribution wid th standard deviationOrdered By: Yuridia Hernandez on 06-30-2024 Erythrocyte distribution width (RBC) [Ratio] 44.5 fl High 35.1-43.9 [facility] Glomerular filtration rate ( GFR) estimation/1.73 sq m using serum, plasma, or whole bOrdered By: Yuridia Hernandez on 06-30-2024 GFR/1.73 sq M.predicted among non-blacks MDRD (S/P/Bld) [Vol rate/Area] 18 mL/min/{1.73_m2} Low >60 [facility] Comment on above: mL/min/1.73m2 CKD-EP I Creatinine Equation (2020) Hematocrit Auto (Bld) [Volum e fraction]Ordered By: Yuridia Hernandez on 06-30-2024 Hematocrit (Bld) [Volume fraction] 29.6 % Low 40-54 [facility] Hemoglobin measurementOrdere d By: Yuridia Hernandez on 06-30-2024 Hemoglobin (Bld) [Mass/Vol] 10.0 g/dL Low 13.0-16.5 [facility] Immature granulocytes/100 WB C Auto (Bld)Ordered By: Yuridia Hernandez on 06-30-2024 Immature granulocytes/100 WBC (Bld) 0.500 % 0.0-0.9 [facility] Comment on above: IG% - Immature Granu locytes (promyelocytes, myelocytes and metamyelocytes) > 1% indicates that a LEFT SHIFT is Present. L503.7505on 06-30-2024 Natriuretic peptide B (Bld) [Mass/Vol] 3454 pg/mL High <=1800 [facility] Comment on above: Result Comment: Hear t Failure Unlikely: < 300 pg/mLHeart Failure Likely< 50 Years: > 450 pg/mL50-75 Years: > 900 pg/mL>75 Years: > 1800 pg/mL Performed By: #### L 500.4050, L100.0100, L503.7505 ####[facility] [address] [place], [place], [address] Laboratory - Chemistry and C hemistry - challengeOrdered By: Yuridia Hernandez on 06-30-2024 AST [Catalytic activity/Vol] 61 U/L High <38 [facility] MCV (mean corpuscular volume ) determinationOrdered By: Yuridia Hernandez on 06-30-2024 MCV (RBC) [Entitic vol] 92.8 fL 80-94 [facility] Mean corpuscular hemoglobin (MCH) determinationOrdered By: Yuridia Hernandez on 06-30-2024 MCH (RBC) [Entitic mass] 31.3 pg 27.0-32.0 [facility] Mean corpuscular hemoglobin concentration (MCHC) determinationOrdered By: Yuridia Hernandez on 06-30-2024 MCHC (RBC) [Mass/Vol] 33.8 g/dL 32-36 [facility] Mean platelet volume determi nationOrdered By: Yuridia Hernandez on 06-30-2024 Platelet mean volume (Bld) [Entitic vol] 11.1 fL 6.2-12.0 [facility] Monocyte percentageOrdered B y: Yuridia Hernandez on 06-30-2024 Monocytes/100 WBC (Bld) 7.5 % 0-10 [facility] Natriuretic peptide.B prohor chris N-Terminal [Mass/volume] in Serum or PlasmaOrdered By: Yuridia Hernandez on 06-30-2024 Natriuretic peptide.B prohormone N-Terminal [Mass/Vol] 3454 pg/mL High <1800 [facility] Comment on above: Heart Failure Unlike ly: < 300 pg/mLHeart Failure Likely< 50 Years: > 450 pg/mL50-75 Years: > 900 pg/mL>75 Years: > 1800 pg/mL Neutrophil percentageOrdered By: Yuridia Hernandez on 06-30-2024 Neutrophils/100 WBC (Bld) 75.3 % High 47-70 [facility] Nucleated red blood cell per centageOrdered By: Yuridia Hernandez on 06-30-2024 Nucleated RBC/100 WBC (Bld) [Ratio] 0 % 0-5 [facility] Platelet countOrdered By: Mike Hernandez on 06-30-2024 Platelets (Bld) [#/Vol] 174 10*3/uL 150-450 [facility] Potassium measurement (mass/ volume)Ordered By: Yuridia Hernandez on 06-30-2024 Potassium (Unsp spec) [Mass/Vol] 3.6 mmol/L 3.3-5.1 [facility] RBC Auto (Bld) [#/Vol]Ordere d By: Yuridia Hernandez on 06-30-2024 RBC (Bld) [#/Vol] 3.19 10*6/uL Low 4.6-6.2 [facility] Serum creatinine measurement (mass/volume)Ordered By: Yuridia Hernandez on 06-30-2024 Creatinine [Mass/Vol] 3.22 mg/dL High 0.70-1.20 [facility] Serum globulin measurementOr dered By: Yuridia Hernandez on 06-30-2024 Globulin (S) [Mass/Vol] 2.7 g/dL 2.2-4.2 [facility] Serum glucose measurement (m ass/volume)Ordered By: Yuridia Hernandez on 06-30-2024 Glucose [Mass/Vol] 257 mg/dL High 70-99 [facility] Serum or plasma alanine duque otransferase (ALT) measurementOrdered By: Yuridia Hernandez on 06-30-2024 ALT [Catalytic activity/Vol] 149 U/L High <47 [facility] Serum or plasma albumin elmira urement (mass/volume)Ordered By: Yuridia Hernandez on 06-30-2024 Albumin [Mass/Vol] 3.9 g/dL 3.4-4.8 [facility] Serum or plasma albumin/glob ulin mass ratioOrdered By: Yuridia Hernandez on 06-30-2024 Albumin/Globulin [Mass ratio] 1.5 {ratio} 0.9-2.4 [facility] Serum or plasma alkaline lissa sphatase measurementOrdered By: Yuridia Hernandez on 06-30-2024 ALP [Catalytic activity/Vol] 80 U/L 40-129 [facility] Serum or plasma calcium elmira urement (mass/volume)Ordered By: Yuridia Hernandez on 06-30-2024 Calcium [Mass/Vol] 9.1 mg/dL 7.6-11.0 [facility] Serum or plasma urea nitroge n measurement (mass/volume)Ordered By: Yuridia Hernandez on 06-30-2024 Urea nitrogen [Mass/Vol] 116 mg/dL High 06-28 [facility] Comment on above: Critical Result(s) C alled at: 2130 by: DR.C GARCIA Results read back by same. Sodium levelOrdered By: Yuridia Hernandez on 06-30-2024 Sodium [Moles/Vol] 141 mmol/L 133-145 [facility] Total proteinOrdered By: Cecilia Hernandez on 06-30-2024 Protein [Mass/Vol] 6.6 g/dL 5.9-8.4 [facility] White blood cell (WBC) count Ordered By: Yuridia Hernandez on 06-30-2024 WBC (Bld) [#/Vol] 15.7 10*3/uL High 4.4-11.0 [facility] Basic Metabolic Profile (BMP )on 06-29-2024 BUN Normal 06-28 [facility] Comment on above: Result Comment: Canc elled via OM: Order cancelled - Patient discharged Performed By: #### L 500.2500, L100.0100 ####[facility] [address] [place], [address] BUN/CRE Normal 12-29 [facility] Comment on above: Result Comment: Canc elled via OM: Order cancelled - Patient discharged Performed By: #### L 500.2500, L100.0100 ####[facility] [address] [place], [address] Calcium Normal 7.6-11.0 [facility] Comment on above: Result Comment: Canc elled via OM: Order cancelled - Patient discharged Performed By: #### L 500.2500, L100.0100 ####[facility] [address] [place], [address] CL Normal 98-108 [facility] Comment on above: Result Comment: Canc elled via OM: Order cancelled - Patient discharged Performed By: #### L 500.2500, L100.0100 ####[facility] [address] [place], [address] CO2 Normal 21.0-32.0 [facility] Comment on above: Result Comment: Canc elled via OM: Order cancelled - Patient discharged Performed By: #### L 500.2500, L100.0100 ####[facility] [address] [place], [address] CREAT,SERUM Normal 0.70-1.20 [facility] Comment on above: Result Comment: Canc elled via OM: Order cancelled - Patient discharged Performed By: #### L 500.2500, L100.0100 ####[facility] [address] [place], [address] eGFR Normal >60 [facility] Comment on above: Result Comment: Canc elled via OM: Order cancelled - Patient discharged Performed By: #### L 500.2500, L100.0100 ####[facility] [address] [place], [address] GAP Normal 5-15 [facility] Comment on above: Result Comment: Canc elled via OM: Order cancelled - Patient discharged Performed By: #### L 500.2500, L100.0100 ####[facility] [address] [place], [address] GLU Normal 70-99 [facility] Comment on above: Result Comment: Canc elled via OM: Order cancelled - Patient discharged Performed By: #### L 500.2500, L100.0100 ####[facility] [address], [address] Potassium Normal 3.3-5.1 [facility] Comment on above: Result Comment: Canc elled via OM: Order cancelled - Patient discharged Performed By: #### L 500.2500, L100.0100 ####[facility] [address], [address] Basic Metabolic Profile (BMP) Normal 133-145 [facility] Comment on above: Result Comment: Canc elled via OM: Order cancelled - Patient discharged Performed By: #### L 500.2500, L100.0100 ####[facility] [address] [place], [address] CBC W/Diff, Automatedon 04-2 0-2024 Absolute Neut Normal 2.0-7.7 [facility] Comment on above: Result Comment: Canc elled via OM: Order cancelled - Patient discharged Performed By: #### L 500.2500, L100.0100 ####[facility] [address] [place], [address] HCT Normal 40-54 [facility] Comment on above: Result Comment: Canc elled via OM: Order cancelled - Patient discharged Performed By: #### L 500.2500, L100.0100 ####[facility] [address] [place], [address] HGB Normal 13.0-16.5 [facility] Comment on above: Result Comment: Canc elled via OM: Order cancelled - Patient discharged Performed By: #### L 500.2500, L100.0100 ####[facility] [address], [address] MCH Normal 27.0-32.0 [facility] Comment on above: Result Comment: Canc elled via OM: Order cancelled - Patient discharged Performed By: #### L 500.2500, L100.0100 ####[facility] [address] [place], [address] MCHC Normal 32-36 [facility] Comment on above: Result Comment: Canc elled via OM: Order cancelled - Patient discharged Performed By: #### L 500.2500, L100.0100 ####[facility] [address] [place], [address] MCV Normal 80-94 [facility] Comment on above: Result Comment: Canc elled via OM: Order cancelled - Patient discharged Performed By: #### L 500.2500, L100.0100 ####[facility] [address] [place], [address] NEUT% Normal 47-70 [facility] Comment on above: Result Comment: Canc elled via OM: Order cancelled - Patient discharged Performed By: #### L 500.2500, L100.0100 ####[facility] [address] [place], [address] PLT Normal 150-450 [facility] Comment on above: Result Comment: Canc elled via OM: Order cancelled - Patient discharged Performed By: #### L 500.2500, L100.0100 ####[facility] [address] [place], [address] RBC Normal 4.6-6.2 [facility] Comment on above: Result Comment: Canc elled via OM: Order cancelled - Patient discharged Performed By: #### L 500.2500, L100.0100 ####[facility] [address] [place], [address] RDW CV Normal 11.6-14.6 [facility] Comment on above: Result Comment: Canc elled via OM: Order cancelled - Patient discharged Performed By: #### L 500.2500, L100.0100 ####[facility] [address] [place], [address] RDW SD Normal 35.1-43.9 [facility] Comment on above: Result Comment: Canc elled via OM: Order cancelled - Patient discharged Performed By: #### L 500.2500, L100.0100 ####[facility] [address], [address] WBC Normal 4.4-11.0 [facility] Comment on above: Result Comment: Canc elled via OM: Order cancelled - Patient discharged Performed By: #### L 500.2500, L100.0100 ####[facility] [address] [place], [address] Basic Metabolic Profile (BMP )on 06-28-2024 BUN Normal 4-19 [facility] Comment on above: Result Comment: Canc elled via OM: Order cancelled - Patient discharged Performed By: #### L 500.2500, L100.0100 ####[facility] [address] [place], [address] BUN/CRE Normal 10-20 [facility] Comment on above: Result Comment: Canc elled via OM: Order cancelled - Patient discharged Performed By: #### L 500.2500, L100.0100 ####[facility] [address] [place], [address] Calcium Normal 7.6-11.0 [facility] Comment on above: Result Comment: Canc elled via OM: Order cancelled - Patient discharged Performed By: #### L 500.2500, L100.0100 ####[facility] [address] [place], [address] CL Normal 98-108 [facility] Comment on above: Result Comment: Canc elled via OM: Order cancelled - Patient discharged Performed By: #### L 500.2500, L100.0100 ####[facility] [address] [place], [address] CO2 Normal 21.0-32.0 [facility] Comment on above: Result Comment: Canc elled via OM: Order cancelled - Patient discharged Performed By: #### L 500.2500, L100.0100 ####[facility] [address] [place], [address] CREAT,SERUM Normal 0.70-1.20 [facility] Comment on above: Result Comment: Canc elled via OM: Order cancelled - Patient discharged Performed By: #### L 500.2500, L100.0100 ####[facility] [address] [place], [address] eGFR Normal >60 [facility] Comment on above: Result Comment: Canc elled via OM: Order cancelled - Patient discharged Performed By: #### L 500.2500, L100.0100 ####[facility] [address] [place], [address] GAP Normal 5-15 [facility] Comment on above: Result Comment: Canc elled via OM: Order cancelled - Patient discharged Performed By: #### L 500.2500, L100.0100 ####[facility] [address] [place], [address] GLU Normal 70-99 [facility] Comment on above: Result Comment: Canc elled via OM: Order cancelled - Patient discharged Performed By: #### L 500.2500, L100.0100 ####[facility] [address] [place], [address] Potassium Normal 3.3-5.1 [facility] Comment on above: Result Comment: Canc elled via OM: Order cancelled - Patient discharged Performed By: #### L 500.2500, L100.0100 ####[facility] [address] [place], [address] Basic Metabolic Profile (BMP) Normal 133-145 [facility] Comment on above: Result Comment: Canc elled via OM: Order cancelled - Patient discharged Performed By: #### L 500.2500, L100.0100 ####[facility] [address] [place], [address] CBC W/Diff, Automatedon 04-1 Absolute Neut Normal 2.0-7.7 [facility] Comment on above: Result Comment: Canc elled via OM: Order cancelled - Patient discharged Performed By: #### L 500.2500, L100.0100 ####[facility] [address] [place], [address] HCT Normal 40-54 [facility] Comment on above: Result Comment: Canc elled via OM: Order cancelled - Patient discharged Performed By: #### L 500.2500, L100.0100 ####[facility] [address] [place], [address] HGB Normal 13.0-16.5 [facility] Comment on above: Result Comment: Canc elled via OM: Order cancelled - Patient discharged Performed By: #### L 500.2500, L100.0100 ####[facility] [address] [place], [address] MCH Normal 27.0-32.0 [facility] Comment on above: Result Comment: Canc elled via OM: Order cancelled - Patient discharged Performed By: #### L 500.2500, L100.0100 ####[facility] [address] [place], [address] MCHC Normal 32-36 [facility] Comment on above: Result Comment: Canc elled via OM: Order cancelled - Patient discharged Performed By: #### L 500.2500, L100.0100 ####[facility] [address] [place], [address] MCV Normal 80-94 [facility] Comment on above: Result Comment: Canc elled via OM: Order cancelled - Patient discharged Performed By: #### L 500.2500, L100.0100 ####[facility] [address] [place], [address] NEUT% Normal 47-70 [facility] Comment on above: Result Comment: Canc elled via OM: Order cancelled - Patient discharged Performed By: #### L 500.2500, L100.0100 ####[facility] [address] [place], [address] PLT Normal 150-450 [facility] Comment on above: Result Comment: Canc elled via OM: Order cancelled - Patient discharged Performed By: #### L 500.2500, L100.0100 ####[facility] [address] [place], [address] RBC Normal 4.6-6.2 [facility] Comment on above: Result Comment: Canc elled via OM: Order cancelled - Patient discharged Performed By: #### L 500.2500, L100.0100 ####[facility] [address] [place], [address] RDW CV Normal 11.6-14.6 [facility] Comment on above: Result Comment: Canc elled via OM: Order cancelled - Patient discharged Performed By: #### L 500.2500, L100.0100 ####[facility] [address] [place], [address] RDW SD Normal 35.1-43.9 [facility] Comment on above: Result Comment: Canc elled via OM: Order cancelled - Patient discharged Performed By: #### L 500.2500, L100.0100 ####[facility] [address] [place], [address] WBC Normal 4.4-11.0 [facility] Comment on above: Result Comment: Canc elled via OM: Order cancelled - Patient discharged Performed By: #### L 500.2500, L100.0100 ####[facility] [address], [address] Basic Metabolic Profile (BMP )on 06-27-2024 BUN Normal 4-19 [facility] Comment on above: Result Comment: Canc elled via OM: Order cancelled - Patient discharged Performed By: #### L 500.2500, L100.0100 ####[facility] [address] [place], [address] BUN/CRE Normal 10-20 [facility] Comment on above: Result Comment: Canc elled via OM: Order cancelled - Patient discharged Performed By: #### L 500.2500, L100.0100 ####[facility] [address] [place], [address] Calcium Normal 7.6-11.0 [facility] Comment on above: Result Comment: Canc elled via OM: Order cancelled - Patient discharged Performed By: #### L 500.2500, L100.0100 ####[facility] [address] [place], [address] CL Normal 98-108 [facility] Comment on above: Result Comment: Canc elled via OM: Order cancelled - Patient discharged Performed By: #### L 500.2500, L100.0100 ####[facility] [address] [place], [address] CO2 Normal 21.0-32.0 [facility] Comment on above: Result Comment: Canc elled via OM: Order cancelled - Patient discharged Performed By: #### L 500.2500, L100.0100 ####[facility] [address] [place], [address] CREAT,SERUM Normal 0.70-1.20 [facility] Comment on above: Result Comment: Canc elled via OM: Order cancelled - Patient discharged Performed By: #### L 500.2500, L100.0100 ####[facility] [address] [place], [address] eGFR Normal >60 [facility] Comment on above: Result Comment: Canc elled via OM: Order cancelled - Patient discharged Performed By: #### L 500.2500, L100.0100 ####[facility] [address] [place], [address] GAP Normal 5-15 [facility] Comment on above: Result Comment: Canc elled via OM: Order cancelled - Patient discharged Performed By: #### L 500.2500, L100.0100 ####[facility] [address] [place], [address] GLU Normal 70-99 [facility] Comment on above: Result Comment: Canc elled via OM: Order cancelled - Patient discharged Performed By: #### L 500.2500, L100.0100 ####[facility] [address] [place], [address] Potassium Normal 3.3-5.1 [facility] Comment on above: Result Comment: Canc elled via OM: Order cancelled - Patient discharged Performed By: #### L 500.2500, L100.0100 ####[facility] [address] [place], [address] Basic Metabolic Profile (BMP) Normal 133-145 [facility] Comment on above: Result Comment: Canc elled via OM: Order cancelled - Patient discharged Performed By: #### L 500.2500, L100.0100 ####[facility] [address] [place], [address] CBC W/Diff, Automatedon 06-10 Absolute Neut Normal 2.0-7.7 [facility] Comment on above: Result Comment: Canc elled via OM: Order cancelled - Patient discharged Performed By: #### L 500.2500, L100.0100 ####[facility] [address] [place], [address] HCT Normal 40-54 [facility] Comment on above: Result Comment: Canc elled via OM: Order cancelled - Patient discharged Performed By: #### L 500.2500, L100.0100 ####[facility] [address] [place], [address] HGB Normal 13.0-16.5 [facility] Comment on above: Result Comment: Canc elled via OM: Order cancelled - Patient discharged Performed By: #### L 500.2500, L100.0100 ####[facility] [address] [place], [address] MCH Normal 27.0-32.0 [facility] Comment on above: Result Comment: Canc elled via OM: Order cancelled - Patient discharged Performed By: #### L 500.2500, L100.0100 ####[facility] [address] [place], [address] MCHC Normal 32-36 [facility] Comment on above: Result Comment: Canc elled via OM: Order cancelled - Patient discharged Performed By: #### L 500.2500, L100.0100 ####[facility] [address] [place], [address] MCV Normal 80-94 [facility] Comment on above: Result Comment: Canc elled via OM: Order cancelled - Patient discharged Performed By: #### L 500.2500, L100.0100 ####[facility] [address] [place], [address] NEUT% Normal 47-70 [facility] Comment on above: Result Comment: Canc elled via OM: Order cancelled - Patient discharged Performed By: #### L 500.2500, L100.0100 ####[facility] [address] [place], [address] PLT Normal 150-450 [facility] Comment on above: Result Comment: Canc elled via OM: Order cancelled - Patient discharged Performed By: #### L 500.2500, L100.0100 ####[facility] [address] [place], [address] RBC Normal 4.6-6.2 [facility] Comment on above: Result Comment: Canc elled via OM: Order cancelled - Patient discharged Performed By: #### L 500.2500, L100.0100 ####[facility] [address] [place], [address] RDW CV Normal 11.6-14.6 [facility] Comment on above: Result Comment: Canc elled via OM: Order cancelled - Patient discharged Performed By: #### L 500.2500, L100.0100 ####[facility] [address] [place], [address] RDW SD Normal 35.1-43.9 [facility] Comment on above: Result Comment: Canc elled via OM: Order cancelled - Patient discharged Performed By: #### L 500.2500, L100.0100 ####[facility] [address] [place], [address] WBC Normal 4.4-11.0 [facility] Comment on above: Result Comment: Canc elled via OM: Order cancelled - Patient discharged Performed By: #### L 500.2500, L100.0100 ####[facility] [address] [place], [address] Basic Metabolic Profile (BMP )on 06-26-2024 BUN Normal 4-19 [facility] Comment on above: Result Comment: Canc elled via OM: Order cancelled - Patient discharged Performed By: #### L 100.0100, L500.2500 ####[facility] [address] [place], [address] BUN/CRE Normal 10-20 [facility] Comment on above: Result Comment: Canc elled via OM: Order cancelled - Patient discharged Performed By: #### L 100.0100, L500.2500 ####[facility] [address] [place], [address] Calcium Normal 7.6-11.0 [facility] Comment on above: Result Comment: Canc elled via OM: Order cancelled - Patient discharged Performed By: #### L 100.0100, L500.2500 ####[facility] [address] [place], [address] CL Normal 98-108 [facility] Comment on above: Result Comment: Canc elled via OM: Order cancelled - Patient discharged Performed By: #### L 100.0100, L500.2500 ####[facility] [address] [place], [address] CO2 Normal 21.0-32.0 [facility] Comment on above: Result Comment: Canc elled via OM: Order cancelled - Patient discharged Performed By: #### L 100.0100, L500.2500 ####[facility] [address] [place], [address] CREAT,SERUM Normal 0.70-1.20 [facility] Comment on above: Result Comment: Canc elled via OM: Order cancelled - Patient discharged Performed By: #### L 100.0100, L500.2500 ####[facility] [address] [place], [address] eGFR Normal >60 [facility] Comment on above: Result Comment: Canc elled via OM: Order cancelled - Patient discharged Performed By: #### L 100.0100, L500.2500 ####[facility] [address] [place], [address] GAP Normal 5-15 [facility] Comment on above: Result Comment: Canc elled via OM: Order cancelled - Patient discharged Performed By: #### L 100.0100, L500.2500 ####[facility] [address] [place], [address] GLU Normal 70-99 [facility] Comment on above: Result Comment: Canc elled via OM: Order cancelled - Patient discharged Performed By: #### L 100.0100, L500.2500 ####[facility] [address] [place], [address] Potassium Normal 3.3-5.1 [facility] Comment on above: Result Comment: Canc elled via OM: Order cancelled - Patient discharged Performed By: #### L 100.0100, L500.2500 ####[facility] [address] [place], [address] Basic Metabolic Profile (BMP) Normal 133-145 [facility] Comment on above: Result Comment: Canc elled via OM: Order cancelled - Patient discharged Performed By: #### L 100.0100, L500.2500 ####[facility] [address] [place], [address] CBC W/Diff, Automatedon 04- Absolute Neut Normal 2.0-7.7 [facility] Comment on above: Result Comment: Canc elled via OM: Order cancelled - Patient discharged Performed By: #### L 100.0100, L500.2500 ####[facility] [address] [place], [address] HCT Normal 40-54 [facility] Comment on above: Result Comment: Canc elled via OM: Order cancelled - Patient discharged Performed By: #### L 100.0100, L500.2500 ####[facility] [address] [place], [address] HGB Normal 13.0-16.5 [facility] Comment on above: Result Comment: Canc elled via OM: Order cancelled - Patient discharged Performed By: #### L 100.0100, L500.2500 ####[facility] [address] [place], [address] MCH Normal 27.0-32.0 [facility] Comment on above: Result Comment: Canc elled via OM: Order cancelled - Patient discharged Performed By: #### L 100.0100, L500.2500 ####[facility] [address] [place], [address] MCHC Normal 32-36 [facility] Comment on above: Result Comment: Canc elled via OM: Order cancelled - Patient discharged Performed By: #### L 100.0100, L500.2500 ####[facility] [address] [place], [address] MCV Normal 80-94 [facility] Comment on above: Result Comment: Canc elled via OM: Order cancelled - Patient discharged Performed By: #### L 100.0100, L500.2500 ####[facility] [address] [place], [address] NEUT% Normal 47-70 [facility] Comment on above: Result Comment: Canc elled via OM: Order cancelled - Patient discharged Performed By: #### L 100.0100, L500.2500 ####[facility] [address] [place], [address] PLT Normal 150-450 [facility] Comment on above: Result Comment: Canc elled via OM: Order cancelled - Patient discharged Performed By: #### L 100.0100, L500.2500 ####[facility] [address] [place], [address] RBC Normal 4.6-6.2 [facility] Comment on above: Result Comment: Canc elled via OM: Order cancelled - Patient discharged Performed By: #### L 100.0100, L500.2500 ####[facility] [address], [address] RDW CV Normal 11.6-14.6 [facility] Comment on above: Result Comment: Canc elled via OM: Order cancelled - Patient discharged Performed By: #### L 100.0100, L500.2500 ####[facility] [address] [place], [address] RDW SD Normal 35.1-43.9 [facility] Comment on above: Result Comment: Canc elled via OM: Order cancelled - Patient discharged Performed By: #### L 100.0100, L500.2500 ####[facility] [address] [place], [address] WBC Normal 4.4-11.0 [facility] Comment on above: Result Comment: Canc elled via OM: Order cancelled - Patient discharged Performed By: #### L 100.0100, L500.2500 ####[facility] [address] [place], [address] Absolute lymphocyte countOrd ered By: Sarai Alcantara on 06-25-2024 Lymphocytes Auto (Unsp spec) [#/Vol] 1.06 10*3/uL 0.83-4.51 [facility] Absolute neutrophil countOrd ered By: Sarai Alcantara on 06-25-2024 Neutrophils (Bld) [#/Vol] 7.0 10*3/uL 2.0-7.7 [facility] Anion gap in Serum or Plasma Ordered By: Sarai Alcantara on 06-25-2024 Anion gap [Moles/Vol] 14 mmol/L 5-15 [facility] Automated lymphocyte count a s percentage of total leukocytesOrdered By: Sarai Alcantara on 06-25-2024 Lymphocytes/100 WBC Auto (Unsp spec) 12.3 % Low 19-41 [facility] BUN/creatinine ratioOrdered By: Sarai Alcantara on 06-25-2024 Urea nitrogen/Creatinine [Mass ratio] 38.9 mg/mg High 10-20 [facility] Basic Metabolic Profile (BMP )on 06-25-2024 Urea nitrogen [Mass/Vol] 110 mg/dL Invalid Interpretation Code 4-19 [facility] Comment on above: Result Comment: Crit ical Result(s) Called at 0852: by:?? DIDIER DUENAS. Results read back by same.Critical Result(s) Called at: by:??Results read back bysame. AMENDED REPORT 06/25/24911 BUN previously reported as: 110 *H mg/dLCritical Result(s) Called at 0852: by:?? DIDIER DUENAS. Results read back by same. Performed By: #### L 500.2500, L100.0100 ####[facility] [address] [place], [address] Basophil percentageOrdered B y: Sarai Alcantara on 06-25-2024 Basophils/100 WBC (Bld) 0.1 % 0-1 [facility] Bedside Glucoseon 06-25-2024 FINGERSTICK GLU 237 mg/dL High 74-106 [facility] Comment on above: Result Comment: MYKE GEMENT OF PATIENT CARE PER NURSING PROTOCOL Performed By: #### L 501.080 ####[facility] [address] [place], [address] FINGERSTICK GLU 161 mg/dL High 74-106 [facility] Comment on above: Result Comment: MYKE GEMENT OF PATIENT CARE PER NURSING PROTOCOL Performed By: #### L 501.080 ####[facility] [address] [place], [address] FINGERSTICK GLU 118 mg/dL High 74-106 [facility] Comment on above: Result Comment: MYKE GEMENT OF PATIENT CARE PER NURSING PROTOCOL Performed By: #### L 501.080 ####[facility] [address] [place], [address] CBC W/Diff, Automatedon 04 Absolute Lymph 1.06 X10 3/uL Normal 0.83-4.51 [facility] Comment on above: Performed By: #### L 500.2500, L100.0100 ####[facility] [address] [place], [address] Absolute Neut 7.0 X10 3/uL Normal 2.0-7.7 [facility] Comment on above: Performed By: #### L 500.2500, L100.0100 ####[facility] [address] [place], [address] Basophils/100 WBC (Bld) 0.1 % Normal 0-1 [facility] Comment on above: Performed By: #### L 500.2500, L100.0100 ####[facility] [address] [place], [address] Eosinophils/100 WBC (Bld) 0.3 % Normal 0-5 [facility] Comment on above: Performed By: #### L 500.2500, L100.0100 ####[facility] [address] [place], [address] Erythrocyte distribution width (RBC) [Ratio] 13.7 % Normal 11.6-14.6 [facility] Comment on above: Performed By: #### L 500.2500, L100.0100 ####[facility] [address] [place], [address] Hematocrit (Bld) [Volume fraction] 23.4 % Low 40-54 [facility] Comment on above: Performed By: #### L 500.2500, L100.0100 ####[facility] [address] [place], [address] Hemoglobin (Bld) [Mass/Vol] 8.0 g/dL Low 13.0-16.5 [facility] Comment on above: Performed By: #### L 500.2500, L100.0100 ####[facility] [address] [place], [address] IG% 0.300 Normal 0.0-0.9 [facility] Comment on above: Result Comment: IG% - Immature Granulocytes (promyelocytes, myelocytes andmetamyelocytes) > 1% indicates that a LEFT SHIFT is Present. Performed By: #### L 500.2500, L100.0100 ####[facility] [address] [place], [address] Lymphocytes/100 WBC (Bld) 12.3 % Low 19-41 [facility] Comment on above: Performed By: #### L 500.2500, L100.0100 ####[facility] [address] [place], [address] MCH (RBC) [Entitic mass] 31.3 pg Normal 27.0-32.0 [facility] Comment on above: Performed By: #### L 500.2500, L100.0100 ####[facility] [address] [place], [address] MCHC (RBC) [Mass/Vol] 34.2 g/dL Normal 32-36 [facility] Comment on above: Performed By: #### L 500.2500, L100.0100 ####[facility] [address] [place], [address] MCV (RBC) [Entitic vol] 91.4 fL Normal 80-94 [facility] Comment on above: Performed By: #### L 500.2500, L100.0100 ####[facility] [address] [place], [address] Monocytes/100 WBC (Bld) 6.1 % Normal 0-10 [facility] Comment on above: Performed By: #### L 500.2500, L100.0100 ####[facility] [address] [place], [address] Neutrophils/100 WBC (Bld) 80.9 % High 47-70 [facility] Comment on above: Performed By: #### L 500.2500, L100.0100 ####[facility] [address] [place], [address] Nucleated RBC (Bld) [#/Vol] 0 10*3/uL Normal 0-5 [facility] Comment on above: Performed By: #### L 500.2500, L100.0100 ####[facility] [address] [place], [address] Platelet mean volume (Bld) [Entitic vol] 11.0 fL Normal 6.2-12.0 [facility] Comment on above: Performed By: #### L 500.2500, L100.0100 ####[facility] [address] [place], [address] Platelets (Bld) [#/Vol] 94 10*3/uL Low 150-450 [facility] Comment on above: Performed By: #### L 500.2500, L100.0100 ####[facility] [address] [place], [address] RBC (Bld) [#/Vol] 2.56 10*6/uL Low 4.6-6.2 [facility] Comment on above: Performed By: #### L 500.2500, L100.0100 ####[facility] [address] [place], [address] RDW SD 44.8 fl High 35.1-43.9 [facility] Comment on above: Performed By: #### L 500.2500, L100.0100 ####[facility] [address] [place], [address] WBC (Bld) [#/Vol] 8.6 10*3/uL Normal 4.4-11.0 [facility] Comment on above: Performed By: #### L 500.2500, L100.0100 ####[facility] [address] [place], [address] Carbon dioxide, total [Moles /volume] in Central venous bloodOrdered By: Sarai Alcantara on 06-25-2024 CO2 [Moles/Vol] 25.1 mmol/L 21.0-32.0 [facility] Chloride assayOrdered By: Na na Quinton on 06-25-2024 Chloride [Moles/Vol] 99 mmol/L 98-108 [facility] Discharge Instructionon 06-10 Discharge Instruction Normal [facility] Eosinophil percentageOrdered By: Sarai Alcantara on 06-25-2024 Eosinophils/100 WBC (Bld) 0.3 % 0-5 [facility] Erythrocyte distribution wid th (RBC) [Ratio]Ordered By: Sarai Alcantara on 06-25-2024 Erythrocyte distribution width (RBC) [Entitic vol] 44.8 fL High 35.1-43.9 [facility] Erythrocyte distribution wid th ratioOrdered By: Sarai Alcantara 06-25-2024 Erythrocyte distribution width (RBC) [Ratio] 13.7 % 11.6-14.6 [facility] Erythrocyte distribution wid th standard deviationOrdered By: Sarai Alcantara on 06-25-2024 Erythrocyte distribution width (RBC) [Ratio] 44.8 fl High 35.1-43.9 [facility] Estimation of creatinine timur aranceOrdered By: Sarai Alcantara on 06-25-2024 Estimated Creatinine Clearance Calc 18.84 ml/min Low 50-250 [facility] GFR/1.73 sq M.predicted kaveh g non-blacks MDRD (S/P/Bld) [Vol rate/Area]Ordered By: Sarai Alcantara on 06-25-2024 Estimated GFR (MDRD) Non-Af Amer 21 Low >60 [facility] Comment on above: mL/min/1.73m2 CKD-EP I Creatinine Equation (2020) Glomerular filtration rate ( GFR) estimation/1.73 sq m using serum, plasma, or whole bOrdered By: Sarai Alcantara on 06-25-2024 GFR/1.73 sq M.predicted among non-blacks MDRD (S/P/Bld) [Vol rate/Area] 21 mL/min/{1.73_m2} Low >60 [facility] [facility] Comment on above: mL/min/1.73m2 CKD-EP I Creatinine Equation (2020) [facility] deOrdered By: Sarai Alcantara on 06-25-2024 Bedside Glucose (Misc Panel) 237 mg/dL High 74-106 [facility] Comment on above: MANAGEMENT OF PATIEN T CARE PER NURSING PROTOCOL Glucose [Mass/Vol] 237 mg/dL High 74-106 [facility] Comment on above: MANAGEMENT OF PATIEN T CARE PER NURSING PROTOCOL Hematocrit Auto (Bld) [Volum e fraction]Ordered By: Sarai Alcantara on 06-25-2024 Hematocrit (Bld) [Volume fraction] 23.4 % Low 40-54 [facility] Hemoglobin measurementOrdere d By: Sarai Alcantara on 06-25-2024 Hemoglobin (Bld) [Mass/Vol] 8.0 g/dL Low 13.0-16.5 [facility] Immature granulocytes/100 WB C Auto (Bld)Ordered By: Sarai Alcantara on 06-25-2024 Immature granulocytes/100 WBC (Bld) 0.300 % 0.0-0.9 [facility] Comment on above: IG% - Immature Granu locytes (promyelocytes, myelocytes and metamyelocytes) > 1% indicates that a LEFT SHIFT is Present. Lymphocytes Auto (Unsp spec) [#/Vol]Ordered By: Sarai Alcantara on 06-25-2024 Lymphocytes (Bld) [#/Vol] 1.06 10*3/uL 0.83-4.51 [facility] Lymphocytes/100 WBC Auto (Un sp spec)Ordered By: Sarai Alcantara on 06-25-2024 Lymphocytes/100 WBC (Bld) 12.3 % Low 19-41 [facility] MCV (mean corpuscular volume ) determinationOrdered By: Sarai Alcantara on 06-25-2024 MCV (RBC) [Entitic vol] 91.4 fL 80-94 [facility] Mean corpuscular hemoglobin (MCH) determinationOrdered By: Sarai Alcantara on 06-25-2024 MCH (RBC) [Entitic mass] 31.3 pg 27.0-32.0 [facility] Mean corpuscular hemoglobin concentration (MCHC) determinationOrdered By: Sarai Alcantara on 06-25-2024 MCHC (RBC) [Mass/Vol] 34.2 g/dL 32-36 [facility] Mean platelet volume determi nationOrdered By: Sarai Alcantara on 06-25-2024 Platelet mean volume (Bld) [Entitic vol] 11.0 fL 6.2-12.0 [facility] Monocyte percentageOrdered B y: Sarai Alcantara on 06-25-2024 Monocytes/100 WBC (Bld) 6.1 % 0-10 [facility] Neutrophil percentageOrdered By: Sarai Alcantara on 06-25-2024 Neutrophils/100 WBC (Bld) 80.9 % High 47-70 [facility] Nucleated red blood cell per centageOrdered By: Sarai Alcantara on 06-25-2024 Nucleated RBC/100 WBC (Bld) [Ratio] 0 % 0-5 [facility] Platelet countOrdered By: Na bria Alcantara on 06-25-2024 Platelets (Bld) [#/Vol] 94 10*3/uL Low 150-450 [facility] Potassium (Unsp spec) [Mass/ Vol]Ordered By: Sarai Alcantara on 06-25-2024 Potassium [Moles/Vol] 4.4 mmol/L 3.3-5.1 [facility] Potassium measurement (mass/ volume)Ordered By: Sarai Alcantara on 06-25-2024 Potassium (Unsp spec) [Mass/Vol] 4.4 mmol/L 3.3-5.1 [facility] RBC Auto (Bld) [#/Vol]Ordere d By: Sarai Alcantara on 06-25-2024 RBC (Bld) [#/Vol] 2.56 10*6/uL Low 4.6-6.2 [facility] Serum creatinine measurement (mass/volume)Ordered By: Sarai Alcantara on 06-25-2024 Creatinine [Mass/Vol] 2.83 mg/dL High 0.70-1.20 [facility] Serum glucose measurement (m ass/volume)Ordered By: Sarai Alcantara on 06-25-2024 Glucose [Mass/Vol] 126 mg/dL High 70-99 [facility] Serum or plasma calcium elmira urement (mass/volume)Ordered By: Sarai Alcantara on 06-25-2024 Calcium [Mass/Vol] 9.3 mg/dL 7.6-11.0 [facility] Serum or plasma urea nitroge n measurement (mass/volume)Ordered By: Sarai Alcantara on 06-25-2024 Urea nitrogen [Mass/Vol] 110 mg/dL High 4-19 [facility] Comment on above: Critical Result(s) C alled at 0852: by: [facility] Results read back by same. Critical Result(s) Called at: by: Results read back by same.Previous reported result: 110 mg/dLEdited by: VICKY on 06/25/24:0912 AMENDED REPORT 06/25/24 09 BUN previously reported as: 110 *H mg/dL Critical Result(s) Called at 0852: by: [facility] Results read back by same. Sodium levelOrdered By: Sarai Alcantara on 06-25-2024 Sodium [Moles/Vol] 138 mmol/L 133-145 [facility] White blood cell (WBC) count Ordered By: Sarai Alcantara on 06-25-2024 WBC (Bld) [#/Vol] 8.6 10*3/uL 4.4-11.0 [facility] Bedside Glucoseon 06-24-2024 FINGERSTICK GLU 128 mg/dL High 74-106 [facility] Comment on above: Result Comment: MYKE GEMENT OF PATIENT CARE PER NURSING PROTOCOL Performed By: #### L 501.080 ####[facility] [address] [facility] [address] FINGERSTICK GLU 184 mg/dL High 74-106 [facility] Comment on above: Result Comment: MYKE GEMENT OF PATIENT CARE PER NURSING PROTOCOL Performed By: #### L 501.080 ####[facility] [address] [place], [address] FINGERSTICK GLU 276 mg/dL High 74-106 [facility] Comment on above: Result Comment: MYKE GEMENT OF PATIENT CARE PER NURSING PROTOCOL Performed By: #### L 501.080 ####[facility] [address] [place], [address] FINGERSTICK GLU 172 mg/dL High 74-106 [facility] Comment on above: Result Comment: MYKE SAGE OF PATIENT CARE PER NURSING PROTOCOL Performed By: #### L 501.080 ####[facility] [address] [place], [address] Bilirubin, totalOrdered By: Tracy Angel on 06-24-2024 Bilirubin [Mass/Vol] 0.32 mg/dL 0.00-1.30 [facility] Blood polychromasia detectio n by light microscopyOrdered By: Tracy Angel on 06-24-2024 Polychromasia LM Ql (Bld) 1+ [facility] CBC W/Diff, Automatedon 06-10 OVALOCYTE 1+ Normal [facility] Comment on above: Performed By: #### L 100.0100, L500.4100, L500.4050 ####[facility] [address] [place], [address] PLT EST MOD DEC Normal ADEQ [facility] Comment on above: Performed By: #### L 100.0100, L500.4100, L500.4050 ####[facility] [address] [place], [address] POLYCHROMASIA 1+ Normal [facility] Comment on above: Performed By: #### L 100.0100, L500.4100, L500.4050 ####[facility] [address] [place], [address] Calculated very low density lipoprotein (VLDL) cholesterol measurementOrdered By: Tracy Angel on 06-24-2024 Calculated very low density lipoprotein (VLDL) cholesterol measurement 21 mg/dL 5-40 [facility] VLDL Cholesterol 21 mg/dL 5-40 [facility] Comprehensive Metabolic Prof ilon 06-24-2024 Albumin [Mass/Vol] 4.0 g/dL Normal 3.4-4.8 [facility] Comment on above: Performed By: #### L 100.0100, L500.4100, L500.4050 ####[facility] [address] [place], [address] Albumin/Globulin [Mass ratio] 1.4 {ratio} Normal 0.9-2.4 [facility] Comment on above: Performed By: #### L 100.0100, L500.4100, L500.4050 ####[facility] [address] [place], [address] ALK PHOS 71 U/L Normal 40-129 [facility] Comment on above: Performed By: #### L 100.0100, L500.4100, L500.4050 ####[facility] [address] [place], [address] ALT [Catalytic activity/Vol] 31 U/L Normal <=46 [facility] Comment on above: Performed By: #### L 100.0100, L500.4100, L500.4050 ####[facility] [address] [place], [address] AST [Catalytic activity/Vol] 18 U/L Normal <=37 [facility] Comment on above: Performed By: #### L 100.0100, L500.4100, L500.4050 ####[facility] [address] [place], [address] Bilirubin [Mass/Vol] 0.32 mg/dL Normal 0.00-1.30 [facility] Comment on above: Performed By: #### L 100.0100, L500.4100, L500.4050 ####[facility] [address] [place], [address] BUN/CRE 36.8 RATIO High 10-20 [facility] Comment on above: Performed By: #### L 100.0100, L500.4100, L500.4050 ####[facility] [address] [place], [address] Calcium [Mass/Vol] 9.5 mg/dL Normal 7.6-11.0 [facility] Comment on above: Performed By: #### L 100.0100, L500.4100, L500.4050 ####[facility] [address] [place], [address] Chloride [Moles/Vol] 101 mmol/L Normal 98-108 [facility] Comment on above: Performed By: #### L 100.0100, L500.4100, L500.4050 ####[facility] [address] [place], [address] CO2 [Moles/Vol] 24.8 mmol/L Normal 21.0-32.0 [facility] Comment on above: Performed By: #### L 100.0100, L500.4100, L500.4050 ####[facility] [address] [place], [address] Creatinine [Mass/Vol] 2.57 mg/dL High 0.70-1.20 [facility] Comment on above: Performed By: #### L 100.0100, L500.4100, L500.4050 ####[facility] [address] [place], [address] ECRCL 20.74 ml/min Low 50-250 [facility] Comment on above: Performed By: #### L 100.0100, L500.4100, L500.4050 ####[facility] [address] [place], [address] GAP 14 Normal 5-15 [facility] Comment on above: Performed By: #### L 100.0100, L500.4100, L500.4050 ####[facility] [address] [place], [address] GFR/1.73 sq M.predicted among non-blacks MDRD (S/P/Bld) [Vol rate/Area] 24 mL/min/{1.73_m2} Low >60 [facility] Comment on above: Result Comment: mL/m in/1.73m2 CKD-EPI Creatinine Equation (2020) Performed By: #### L 100.0100, L500.4100, L500.4050 ####[facility] [address] [place], [address] Globulin (S) [Mass/Vol] 2.9 g/dL Normal 2.2-4.2 [facility] Comment on above: Performed By: #### L 100.0100, L500.4100, L500.4050 ####[facility] [address] [place], [address] Glucose [Mass/Vol] 170 mg/dL High 70-99 [facility] Comment on above: Performed By: #### L 100.0100, L500.4100, L500.4050 ####[facility] [address] [place], [address] Potassium [Moles/Vol] 4.6 mmol/L Normal 3.3-5.1 [facility] Comment on above: Performed By: #### L 100.0100, L500.4100, L500.4050 ####[facility] [address] [place], [address] Sodium [Moles/Vol] 140 mmol/L Normal 133-145 [facility] Comment on above: Performed By: #### L 100.0100, L500.4100, L500.4050 ####[facility] [address] [place], [address] T PROT 6.9 g/dL Normal 5.9-8.4 [facility] Comment on above: Performed By: #### L 100.0100, L500.4100, L500.4050 ####[facility] [address] [place], [address] Urea nitrogen [Mass/Vol] 95 mg/dL High 06-28 [facility] Comment on above: Performed By: #### L 100.0100, L500.4100, L500.4050 ####[facility] [address] [place], [address] Electrocardiogram reportOrde red By: Trell Kendrick on 06-24-2024 EKG study [facility] Cardi[facility] Services [address] [place] [address] 12 Lead EKG 06/23/24 1437 MR#: [id number] Acct: [id number] Name: BEULAH BRIGHT Rep #:[id number] : 1940 84 From: Trell lopez MD Attending Dr: Dr. Sarai Alcantara MD Status: ADM IN Ordering Dr: Delia Tai Date: 06/23/24 Location: [facility] Sex: M C Admitted: 06/23/24 Test Reason [...] abnormality Abnormal ECG Confirmed by Trell Kendrick ([id number]), editorial cartoonist ZACKARY MARTINEZ ([id number]) on :28:21 AM Referred By: TEETEE Confirmed By: Trell Kendrick 06/24/24 1128 Date _ Trell Kendrick MD CC: Dr. Sarai Alcantara MD; Dr. Yuridia Hernandez MD; MIKE Calhoun ~ Signed [facility] Work Phone: LDL calc ser/plasOrdered By: Tracy Angel on 06-24-2024 Cholesterol in LDL [Mass/Vol] 92 mg/dL [facility] Comment on above: Cvtvqemrti=439-994 m g/dL & Higher Ivod=864 mg/dL or greater LDL Cholesterol, Calculated 92 mg/dL [facility] Comment on above: Xikbjdntsg=812-260 m g/dL & Higher Cmkn=373 mg/dL or greater Laboratory - Chemistry and C hemistry - challengeOrdered By: Tracy Angel on 06-24-2024 AST [Catalytic activity/Vol] 18 U/L <38 [facility] Lipid Profileon 06-24-2024 CHOL:HDL 4.12 Normal [facility] Comment on above: Performed By: #### L 100.0100, L500.4100, L500.4050 ####[facility] [address] [place], [address] Cholesterol [Mass/Vol] 149 mg/dL Normal <=200 [facility] Comment on above: Result Comment: Chol esterol level, Desirable <200 mg/dLBorderline high cholesterol 200-239 mg/dLHigh cholesterol >=240 mg/dLRecommendations of the NCEP Adult Treatment Panel for thefollowing risk-cutoff thresholds for the [place] [facility]. Performed By: #### L 100.0100, L500.4100, L500.4050 ####[facility] [address] [place], [address] Cholesterol in HDL [Mass/Vol] 36 mg/dL Low [facility] Comment on above: Result Comment: Maritza onal Cholesterol Education Program (NCEP) guidelines:<40 mg/dL: Low HDL-cholesterol (major risk factor for CHD)>= 60 mg/dL: High HDL-cholesterol (negative risk factor forCHD)HDL-cholesterol is affected by a number of factors, e.g.smoking, exercise, hormones, sex and age. Performed By: #### L 100.0100, L500.4100, L500.4050 ####[facility] [address] [place], [address] Cholesterol in LDL [Mass/Vol] 92 mg/dL Normal [facility] Comment on above: Result Comment: Bord sqphim=636-138 mg/dL Higher Dsvl=049 mg/dL or greater Performed By: #### L 100.0100, L500.4100, L500.4050 ####[facility] [address] [place], [address] Cholesterol in VLDL [Mass/Vol] 21 mg/dL Normal 5-40 [facility] Comment on above: Performed By: #### L 100.0100, L500.4100, L500.4050 ####[facility] [address] [place], [address] Triglyceride [Mass/Vol] 106 mg/dL Normal [facility] Comment on above: Result Comment: The drugs N-Acetylcysteine and Metamizole may falselydepress this assay.Normal range: <150 mg/dLBorderline High: 150-199 mg/dLHigh: 200-499 mg/dLVery High: >500 mg/dL Performed By: #### L 100.0100, L500.4100, L500.4050 ####[facility] [address] [place], [address] Ovalocyte detectionOrdered B y: White on 06-24-2024 Ovalocytes LM Ql (Bld) 1+ [facility] Ovalocytes LM Ql (Bld)Ordere d By: White on 06-24-2024 Ovalocytes 1+ [facility] Platelet estimateOrdered By: White on 06-24-2024 Platelets LM Ql (Bld) MOD DEC ADEQ [facility] Platelets LM Ql (Bld)Ordered By: White on 06-24-2024 Platelet Estimate MOD DEC ADEQ [facility] Polychromasia LM Ql (Bld)Ord ered By: White on 06-24-2024 Polychromasia 1+ [facility] RESPIRATORY PANEL MOLECULARo n 06-24-2024 RP PANEL Normal [facility] Comment on above: Performed By: #### M 100.638 ####[facility] [address] [place], [address] Screening total cholesterol/ high density lipoprotein (HDL) cholesterol ratioOrdered By: Tracy Stanley on 06-24-2024 Cholesterol.total/Choles terol in HDL [Mass ratio] 4.12 {ratio} [facility] Serum globulin measurementOr dered By: [facility] 06-24-2024 Globulin (S) [Mass/Vol] 2.9 g/dL 2.2-4.2 [facility] Serum or plasma alanine duque otransferase (ALT) measurementOrdered By: [facility] 06-24-2024 ALT [Catalytic activity/Vol] 31 U/L <47 [facility] Serum or plasma albumin elmira urement (mass/volume)Ordered By: [facility] 06-24-2024 Albumin [Mass/Vol] 4.0 g/dL 3.4-4.8 [facility] Serum or plasma albumin/glob ulin mass ratioOrdered By: [facility] 06-24-2024 Albumin/Globulin [Mass ratio] 1.4 {ratio} 0.9-2.4 [facility] Serum or plasma alkaline lissa sphatase measurementOrdered By: [facility] 06-24-2024 ALP [Catalytic activity/Vol] 71 U/L 40-129 [facility] Serum or plasma cholesterol in HDL measurement (mass/volume)Ordered By: [facility] 06-24-2024 Cholesterol in HDL [Mass/Vol] 36 mg/dL Low >40 [facility] Comment on above: National Cholesterol Education Program (NCEP) guidelines:<40 mg/dL: Low HDL-cholesterol (major risk factor for CHD)>= 60 mg/dL: High HDL-cholesterol (negative risk factor for CHD)HDL-cholesterol is affected by a number of factors, e.g. smoking, exercise, hormones, sex and age. Serum or plasma cholesterol measurement (mass/volume)Ordered By: Tracy Stanley 06-24-2024 Cholesterol [Mass/Vol] 149 mg/dL <201 [facility] Comment on above: Cholesterol level, D esirable <200 mg/dLBorderline high cholesterol 200-239 mg/dLHigh cholesterol >=240 mg/dLRecommendations of the NCEP Adult Treatment Panel for the following risk-cutoff thresholds for the [place] population. Total proteinOrdered By: Raine harper Stanley on 06-24-2024 Protein [Mass/Vol] 6.9 g/dL 5.9-8.4 [facility] Triglycerides measurementOrd ered By: Tracy Stanley on 06-24-2024 Triglyceride [Mass/Vol] 106 mg/dL <199 [facility] Comment on above: The drugs N-Acetylcy steine and Metamizole may falsely depress this assay. Normal range: <150 mg/dLBorderline High: 150-199 mg/dLHigh: 200-499 mg/dLVery High: >500 mg/dL 12 Lead EKGon 06-23-2024 12 Lead EKG Normal [facility] Absolute neutrophil countOrd ered By: Delia Tai on 06-23-2024 Neutrophils (Bld) [#/Vol] 4.2 10*3/uL 2.0-7.7 [facility] Anion gap in Serum or Plasma Ordered By: Delia Tai on 06-23-2024 Anion gap [Moles/Vol] 13 mmol/L 07-24 [facility] BUN/creatinine ratioOrdered By: Delia Tai on 06-23-2024 Urea nitrogen/Creatinine [Mass ratio] 36.4 mg/mg High 12-29 [facility] Basic Metabolic Profile (BMP )on 06-23-2024 BUN/CRE 36.4 RATIO High 12-29 [facility] Comment on above: Performed By: #### L 503.7505, L100.0100, L500.2500 ####[facility] [address] [place], [address] Calcium [Mass/Vol] 9.3 mg/dL Normal 7.6-11.0 [facility] Comment on above: Performed By: #### L 503.7505, L100.0100, L500.2500 ####[facility] [address] [place], [address] Chloride [Moles/Vol] 103 mmol/L Normal 98-108 [facility] Comment on above: Performed By: #### L 503.7505, L100.0100, L500.2500 ####[facility] [address] [place], [address] CO2 [Moles/Vol] 25.6 mmol/L Normal 21.0-32.0 [facility] Comment on above: Performed By: #### L 503.7505, L100.0100, L500.2500 ####[facility] [address] [place], [address] Creatinine [Mass/Vol] 2.36 mg/dL High 0.70-1.20 [facility] Comment on above: Performed By: #### L 503.7505, L100.0100, L500.2500 ####[facility] [address] [place], [address] ECRCL 22.61 ml/min Low 50-250 [facility] Comment on above: Performed By: #### L 503.7505, L100.0100, L500.2500 ####[facility] [address] [place], [address] GAP 13 Normal 5-15 [facility] Comment on above: Performed By: #### L 503.7505, L100.0100, L500.2500 ####[facility] [address] [place], [address] GFR/1.73 sq M.predicted among non-blacks MDRD (S/P/Bld) [Vol rate/Area] 26 mL/min/{1.73_m2} Low >60 [facility] Comment on above: Result Comment: mL/m in/1.73m2 CKD-EPI Creatinine Equation (2020) Performed By: #### L 503.7505, L100.0100, L500.2500 ####[facility] [address] [place], [address] Glucose [Mass/Vol] 200 mg/dL High 70-99 [facility] Comment on above: Performed By: #### L 503.7505, L100.0100, L500.2500 ####[facility] [address] [place], [address] Potassium [Moles/Vol] 4.3 mmol/L Normal 3.3-5.1 [facility] Comment on above: Performed By: #### L 503.7505, L100.0100, L500.2500 ####[facility] [address] [place], [address] Sodium [Moles/Vol] 142 mmol/L Normal 133-145 [facility] Comment on above: Performed By: #### L 503.7505, L100.0100, L500.2500 ####[facility] [address] [place], [address] Urea nitrogen [Mass/Vol] 86 mg/dL High 4-19 [facility] Comment on above: Performed By: #### L 503.7505, L100.0100, L500.2500 ####[facility] [address] [place], [address] Basophil percentageOrdered B y: Delialeobardo Tai on 06-23-2024 Basophils/100 WBC (Bld) 0.5 % 0-1 [facility] Bedside Glucoseon 06-23-2024 FINGERSTICK GLU 205 mg/dL High 74-106 [facility] Comment on above: Result Comment: MYKE SAGE OF PATIENT CARE PER NURSING PROTOCOL Performed By: #### L 501.080 ####[facility] [address] [place], [address] CBC W/Diff, Automatedon 06-10 Absolute Lymph 1.05 X10 3/uL Normal 0.83-4.51 [facility] Comment on above: Performed By: #### L 503.7505, L100.0100, L500.2500 ####[facility] [address] [place], [address] Absolute Neut 4.2 X10 3/uL Normal 2.0-7.7 [facility] Comment on above: Performed By: #### L 503.7505, L100.0100, L500.2500 ####[facility] [address], [address] Basophils/100 WBC (Bld) 0.5 % Normal 0-1 [facility] Comment on above: Performed By: #### L 503.7505, L100.0100, L500.2500 ####[facility] [address] [place], [address] Eosinophils/100 WBC (Bld) 3.5 % Normal 0-5 [facility] Comment on above: Performed By: #### L 503.7505, L100.0100, L500.2500 ####[facility] [address] [place], [address] Erythrocyte distribution width (RBC) [Ratio] 13.2 % Normal 11.6-14.6 [facility] Comment on above: Performed By: #### L 503.7505, L100.0100, L500.2500 ####[facility] [address] [place], [address] Hematocrit (Bld) [Volume fraction] 27.0 % Low 40-54 [facility] Comment on above: Performed By: #### L 503.7505, L100.0100, L500.2500 ####[facility] [address] [place], [address] Hemoglobin (Bld) [Mass/Vol] 8.5 g/dL Low 13.0-16.5 [facility] Comment on above: Performed By: #### L 503.7505, L100.0100, L500.2500 ####[facility] [address] [place], [address] IG% 0.300 Normal 0.0-0.9 [facility] Comment on above: Result Comment: IG% - Immature Granulocytes (promyelocytes, myelocytes andmetamyelocytes) > 1% indicates that a LEFT SHIFT is Present. Performed By: #### L 503.7505, L100.0100, L500.2500 ####[facility] [address] [place], [address] Lymphocytes/100 WBC (Bld) 17.7 % Low 19-41 [facility] Comment on above: Performed By: #### L 503.7505, L100.0100, L500.2500 ####[facility] [address] [place], [address] MCH (RBC) [Entitic mass] 29.9 pg Normal 27.0-32.0 [facility] Comment on above: Performed By: #### L 503.7505, L100.0100, L500.2500 ####[facility] [address] [place], [address] MCHC (RBC) [Mass/Vol] 31.5 g/dL Low 32-36 [facility] Comment on above: Performed By: #### L 503.7505, L100.0100, L500.2500 ####[facility] [address] [place], [address] MCV (RBC) [Entitic vol] 95.1 fL High 80-94 [facility] Comment on above: Performed By: #### L 503.7505, L100.0100, L500.2500 ####[facility] [address] [place], [address] Monocytes/100 WBC (Bld) 6.6 % Normal 0-10 [facility] Comment on above: Performed By: #### L 503.7505, L100.0100, L500.2500 ####[facility] [address] [place], [address] Neutrophils/100 WBC (Bld) 71.4 % High 47-70 [facility] Comment on above: Performed By: #### L 503.7505, L100.0100, L500.2500 ####[facility] [address] [place], [address] Nucleated RBC (Bld) [#/Vol] 0 10*3/uL Normal 0-5 [facility] Comment on above: Performed By: #### L 503.7505, L100.0100, L500.2500 ####[facility] [address] [place], [address] Platelet mean volume (Bld) [Entitic vol] 10.5 fL Normal 6.2-12.0 [facility] Comment on above: Performed By: #### L 503.7505, L100.0100, L500.2500 ####[facility] [address] [place], [address] Platelets (Bld) [#/Vol] 101 10*3/uL Low 150-450 [facility] Comment on above: Performed By: #### L 503.7505, L100.0100, L500.2500 ####[facility] [address] [place], [address] RBC (Bld) [#/Vol] 2.84 10*6/uL Low 4.6-6.2 [facility] Comment on above: Performed By: #### L 503.7505, L100.0100, L500.2500 ####[facility] [address] [place], [address] RDW SD 45.3 fl High 35.1-43.9 [facility] Comment on above: Performed By: #### L 503.7505, L100.0100, L500.2500 ####[facility] [address] [place], [address] WBC (Bld) [#/Vol] 5.9 10*3/uL Normal 4.4-11.0 [facility] Comment on above: Performed By: #### L 503.5833, L100.0100, L500.2500 ####[facility] [address] [place], [address] Carbon dioxide, total [Moles /volume] in Central venous bloodOrdered By: Delia Tai on 06-23-2024 CO2 [Moles/Vol] 25.6 mmol/L 21.0-32.0 [facility] Chest 1 View (Portable)on Chest 1 View (Portable) Normal [facility] Chloride assayOrdered By: Suzan Tai on 06-23-2024 Chloride [Moles/Vol] 103 mmol/L 98-108 [facility] Emergency Department Summary on 06-23-2024 Emergency Department Summary Normal [facility] Eosinophil percentageOrdered By: Delia Tai on 06-23-2024 Eosinophils/100 WBC (Bld) 3.5 % 0-5 [facility] Erythrocyte distribution wid th (RBC) [Ratio]Ordered By: Delia Tai on 06-23-2024 Erythrocyte distribution width (RBC) [Entitic vol] 45.3 fL High 35.1-43.9 [facility] Erythrocyte distribution wid th ratioOrdered By: Delia Tai on 06-23-2024 Erythrocyte distribution width (RBC) [Ratio] 13.2 % 11.6-14.6 [facility] Estimation of creatinine timur aranceOrdered By: Delia Tai on 06-23-2024 Estimated Creatinine Clearance Calc 22.61 ml/min Low 50-250 [facility] GFR/1.73 sq M.predicted kaveh g non-blacks MDRD (S/P/Bld) [Vol rate/Area]Ordered By: Delia Tai on 06-23-2024 Estimated GFR (MDRD) Non-Af Amer 26 Low >60 [facility] Comment on above: mL/min/1.73m2 CKD-EP I Creatinine Equation (2020) H AND P Exam - [facility] 04-14-2025 H&P Exam - Hospitalist Normal [facility] Hematocrit Auto (Bld) [Volum e fraction]Ordered By: Delialeobardo Tai on 06-23-2024 Hematocrit (Bld) [Volume fraction] 27.0 % Low 40-54 [facility] Hemoglobin measurementOrdere d By: Delia Abida on 06-23-2024 Hemoglobin (Bld) [Mass/Vol] 8.5 g/dL Low 13.0-16.5 [facility] Immature granulocytes/100 WB C Auto (Bld)Ordered By: Delia Tai on 06-23-2024 Immature granulocytes/100 WBC (Bld) 0.300 % 0.0-0.9 [facility] Comment on above: IG% - Immature Granu locytes (promyelocytes, myelocytes and metamyelocytes) > 1% indicates that a LEFT SHIFT is Present. Influenza virus A and B and SARS-CoV-2 (COVID-19) and Respiratory syncytial virus RNAOrdered By: Delia Tai on 06-23-2024 SARS-CoV-2 (COVID-19) RNA JOSH+probe Ql (Unsp spec) [facility] L499.0042on 06-23-2024 Trop T High Sen 83 ng/L Invalid Interpretation Code <=22 [facility] Comment on above: Result Comment: Crit ical Result(s) Called ESMART at: 1805 by:ZOYA??Results read back by same. Performed By: #### L 499.0042 ####[facility] [address] [place], [address] L499.0043on 06-23-2024 Trop T High Sen 71 ng/L Invalid Interpretation Code <=22 [facility] Comment on above: Result Comment: Crit ical Result(s) Called AFLICKINGER at: 2157 by:ZOYA??Results read back by same. Performed By: #### L 499.0043 ####[facility] [address] [place], [address] L501.4021on 06-23-2024 Trop T High Sen 83 ng/L Invalid Interpretation Code <=22 [facility] Comment on above: Result Comment: Crit ical Result(s) Called ACOLE at: 1617 by:ZOYA??Results read back by same. Performed By: #### L 501.4021 ####[facility] [address] [place], [address] L503.7505on 06-23-2024 Natriuretic peptide B (Bld) [Mass/Vol] 2233 pg/mL High <=1800 [facility] Comment on above: Result Comment: Hear t Failure Unlikely: < 300 pg/mLHeart Failure Likely< 50 Years: > 450 pg/mL50-75 Years: > 900 pg/mL>75 Years: > 1800 pg/mL Performed By: #### L 503.7505, L100.0100, L500.2500 ####[facility] [address] [place], [address] L509.7001on 06-23-2024 Procalcitonin 0.12 ng/mL High <=0.10 [facility] Comment on above: Result Comment: Inte rpretation:<0.10-0.25 ng/mL: Antibiotic therapy discouraged. Bacterialinfection unlikely.0.25-0.50 ng/mL: Antibiotic therapy encouraged. Bacterialinfection possible.>0.50 ng/mL: Antibiotic therapy strongly encouraged.Suggestive of presence of bacterial infection.PCT should always be interpreted in the clinical context ofthe patient. Therefore, clinicians should use the PCTresults in conjunction with other laboratory findings andclinical signs of the patient. Performed By: #### L 509.7001 ####[facility] [address] [place], [address] Lymphocytes Auto (Unsp spec) [#/Vol]Ordered By: Delia Tai on 06-23-2024 Lymphocytes (Bld) [#/Vol] 1.05 10*3/uL 0.83-4.51 [facility] Lymphocytes/100 WBC Auto (Un sp spec)Ordered By: Delia Tai on 06-23-2024 Lymphocytes/100 WBC (Bld) 17.7 % Low 19-41 [facility] M100.678on 06-23-2024 M100.678 Pending SARS-CoV-2 (COVID 19) Negative INFLUENZA A Negative INFLUENZA B Negative RSV PCR Negative Normal [facility] Comment on above: Performed By: #### M 100.678 ####[facility] [address] [place], [address] M8200.1000on 06-23-2024 M8200.1000 Normal Reference Ran ge = Negative MRSA DNA Nose Ql JOSH+probe GeneXpert Instrument, PCR method MRSA PCR MRSA NEGATIVE Normal [facility] Comment on above: Performed By: #### M 8200.1000 ####[facility] [address] [place], [address] MCV (mean corpuscular volume ) determinationOrdered By: Delia Tai on 06-23-2024 MCV (RBC) [Entitic vol] 95.1 fL High 80-94 [facility] MRSA DNA JOSH+probe Ql (Nose) Ordered By: Tracy Angel on 06-23-2024 MRSA (PCR) [facility] Magnesiumon 06-23-2024 Magnesium [Mass/Vol] 2.0 mg/dL Normal 1.5-2.2 [facility] Comment on above: Order Comment: Comme nts: may add to ED labs Performed By: #### L 501.5200 ####[facility] [address] [place], [address] Magnesium (Unsp spec) [Mass/ Vol]Ordered By: Tracy Angel on 06-23-2024 Magnesium [Mass/Vol] 2.0 mg/dL 1.5-2.2 [facility] Magnesium measurement (mass/ volume)Ordered By: Tracy Angel on 06-23-2024 Magnesium (Unsp spec) [Mass/Vol] 2.0 mg/dL 1.5-2.2 [facility] Mean corpuscular hemoglobin (MCH) determinationOrdered By: Delia Tai on 06-23-2024 MCH (RBC) [Entitic mass] 29.9 pg 27.0-32.0 [facility] Mean corpuscular hemoglobin concentration (MCHC) determinationOrdered By: Delia Tai on 06-23-2024 MCHC (RBC) [Mass/Vol] 31.5 g/dL Low 32-36 [facility] Mean platelet volume determi nationOrdered By: Delia Tai on 06-23-2024 Platelet mean volume (Bld) [Entitic vol] 10.5 fL 6.2-12.0 [facility] Monocyte percentageOrdered B y: Delia Tai on 06-23-2024 Monocytes/100 WBC (Bld) 6.6 % 0-10 [facility] Nasal methicillin resistant Staphylococcus aureus (MRSA) DNA detection by PCROrdered By: Tracy Angel on 06-23-2024 MRSA DNA JOSH+probe Ql (Nose) [facility] Natriuretic peptide.B prohor chris N-Terminal [Mass/Vol]Ordered By: Delia Tai on 06-23-2024 Natriuretic peptide B (Bld) [Mass/Vol] 2233 pg/mL High <1800 [facility] Comment on above: Heart Failure Unlike ly: < 300 pg/mLHeart Failure Likely< 50 Years: > 450 pg/mL50-75 Years: > 900 pg/mL>75 Years: > 1800 pg/mL Natriuretic peptide.B prohor chris N-Terminal [Mass/volume] in Serum or PlasmaOrdered By: Delia Tai on 06-23-2024 Natriuretic peptide.B prohormone N-Terminal [Mass/Vol] 2233 pg/mL High <1800 [facility] Comment on above: Heart Failure Unlike ly: < 300 pg/mLHeart Failure Likely< 50 Years: > 450 pg/mL50-75 Years: > 900 pg/mL>75 Years: > 1800 pg/mL Neutrophil percentageOrdered By: Delia Tai on 06-23-2024 Neutrophils/100 WBC (Bld) 71.4 % High 47-70 [facility] Nucleated red blood cell per centageOrdered By: Delia Tai on 06-23-2024 Nucleated RBC/100 WBC (Bld) [Ratio] 0 % 0-5 [facility] Platelet countOrdered By: Suzan Tai on 06-23-2024 Platelets (Bld) [#/Vol] 101 10*3/uL Low 150-450 [facility] Potassium (Unsp spec) [Mass/ Vol]Ordered By: Delia Tai on 06-23-2024 Potassium [Moles/Vol] 4.3 mmol/L 3.3-5.1 [facility] Procalcitonin IA [Mass/Vol]O rdered By: Tracy Angel on 06-23-2024 Procalcitonin 0.12 ng/mL High <0.11 [facility] Comment on above: Interpretation:<0.10 -0.25 ng/mL: Antibiotic [...] Procalcitonin IA [Mass/Vol] 0.12 ng/mL High <0.11 [facility] Comment on above: Interpretation:<0.10 -0.25 ng/mL: Antibiotic [...] RBC (Bld) [#/Vol] 2.84 10*6/uL Low 4.6-6.2 [facility] Respiratory pathogens DNA an d RNA panel JOSH+probe (Resp)Ordered By: Tracy Angel on 06-23-2024 Respiratory Panel (PCR) [facility] Respiratory pathogens detect ion panel by molecular detection methodOrdered By: Tracy Angel on 06-23-2024 Respiratory pathogens DNA and RNA panel JOSH+probe (Resp) [facility] Serum creatinine measurement (mass/volume)Ordered By: Delia Tai on 06-23-2024 Creatinine [Mass/Vol] 2.36 mg/dL High 0.70-1.20 [facility] Serum glucose measurement (m ass/volume)Ordered By: Delia Tai on 06-23-2024 Glucose [Mass/Vol] 200 mg/dL High 70-99 [facility] Serum or plasma calcium elmira urement (mass/volume)Ordered By: Delia Tai on 06-23-2024 Calcium [Mass/Vol] 9.3 mg/dL 7.6-11.0 [facility] Serum or plasma urea nitroge n measurement (mass/volume)Ordered By: Delia Tai on 06-23-2024 Urea nitrogen [Mass/Vol] 86 mg/dL High 4-19 [facility] Sodium levelOrdered By: Delia Tai on 06-23-2024 Sodium [Moles/Vol] 142 mmol/L 133-145 [facility] Troponin T.cardiac High sens itivity method [Mass/Vol]Ordered By: Delia Tai on 06-23-2024 Troponin T High Sensitivity 4 Hour 71 ng/L High <22 [facility] Comment on above: Critical Result(s) C alled AFLICKINGER at: 2157 by: BWORKMAN Results read back by same. Troponin T High Sensitivity 2 Hour 83 ng/L High <22 [facility] Comment on above: Critical Result(s) C alled ESMART at: 1805 by: BWORKMAN Results read back by same. Troponin T High Sensitivity 83 ng/L High <22 [facility] Comment on above: Critical Result(s) C alled ACOLE at: 1617 by: BWORKMAN Results read back by same. Troponin T.cardiac [Mass/vol ume] in Serum or Plasma by High sensitivity methodOrdered By: Delia Tai on 06-23-2024 Troponin T.cardiac High sensitivity method [Mass/Vol] 71 ng/L High <22 [facility] Comment on above: Critical Result(s) C alled AFLICKINGER at: 2157 by: BWORKMAN Results read back by same. Troponin T.cardiac High sensitivity method [Mass/Vol] 83 ng/L High <22 [facility] Comment on above: Critical Result(s) C alled ESMART at: 1805 by: ZOYA Results read back by same. Troponin T.cardiac High sensitivity method [Mass/Vol] 83 ng/L High <22 [facility] Comment on above: Critical Result(s) C soha ACOLE at: 1617 by: ZOYA Results read back by same. White blood cell (WBC) count Ordered By: Delia Tai on 06-23-2024 WBC (Bld) [#/Vol] 5.9 10*3/uL 4.4-11.0 [facility] Absolute lymphocyte countOrd ered By: Wichita Gerald on 05-28-2024 Lymphocytes Auto (Unsp spec) [#/Vol] 1.74 10*3/uL 0.83-4.51 [facility] Absolute neutrophil countOrd ered By: Andre Duarte on 05-28-2024 Neutrophils (Bld) [#/Vol] 4.4 10*3/uL 2.0-7.7 [facility] Anion gap in Serum or Plasma Ordered By: Andre Duarte on 05-28-2024 Anion gap [Moles/Vol] 14 mmol/L 5-15 [facility] Automated lymphocyte count a s percentage of total leukocytesOrdered By: Andre Duarte on 05-28-2024 Lymphocytes/100 WBC Auto (Unsp spec) 24.2 % 19-41 [facility] BUN/creatinine ratioOrdered By: Andre Duarte on 05-28-2024 Urea nitrogen/Creatinine [Mass ratio] 31.3 mg/mg High 10-20 [facility] Basophil percentageOrdered B y: Andre Duarte on 05-28-2024 Basophils/100 WBC (Bld) 0.6 % 0-1 [facility] Bilirubin, totalOrdered By: Andre Duarte on 05-28-2024 Bilirubin [Mass/Vol] 0.21 mg/dL 0.00-1.30 [facility] CBC W/Diff, Automatedon 05-10 Absolute Lymph 1.74 X10 3/uL Normal 0.83-4.51 [facility] Comment on above: Performed By: #### L 100.0100, L504.2610, L100.9950, L503.6550, L500.4050, L503.6030 ####[facility] [address] [place], [address] Absolute Neut 4.4 X10 3/uL Normal 2.0-7.7 [facility] Comment on above: Performed By: #### L 100.0100, L504.2610, L100.9950, L503.6550, L500.4050, L503.6030 ####[facility] [address] [place], [address] Basophils/100 WBC (Bld) 0.6 % Normal 0-1 [facility] Comment on above: Performed By: #### L 100.0100, L504.2610, L100.9950, L503.6550, L500.4050, L503.6030 ####[facility] [address] [place], [address] Eosinophils/100 WBC (Bld) 5.0 % Normal 0-5 [facility] Comment on above: Performed By: #### L 100.0100, L504.2610, L100.9950, L503.6550, L500.4050, L503.6030 ####[facility] [address] [place], [address] Erythrocyte distribution width (RBC) [Ratio] 11.9 % Normal 11.6-14.6 [facility] Comment on above: Performed By: #### L 100.0100, L504.2610, L100.9950, L503.6550, L500.4050, L503.6030 ####[facility] [address] [place], [address] Hematocrit (Bld) [Volume fraction] 30.5 % Low 40-54 [facility] Comment on above: Performed By: #### L 100.0100, L504.2610, L100.9950, L503.6550, L500.4050, L503.6030 ####[facility] [address] [place], [address] Hemoglobin (Bld) [Mass/Vol] 9.9 g/dL Low 13.0-16.5 [facility] Comment on above: Performed By: #### L 100.0100, L504.2610, L100.9950, L503.6550, L500.4050, L503.6030 ####[facility] [address] [place], [address] IG% 0.300 Normal 0.0-0.9 [facility] Comment on above: Result Comment: IG% - Immature Granulocytes (promyelocytes, myelocytes andmetamyelocytes) > 1% indicates that a LEFT SHIFT is Present. Performed By: #### L 100.0100, L504.2610, L100.9950, L503.6550, L500.4050, L503.6030 ####[facility] [address] [place], [address] Lymphocytes/100 WBC (Bld) 24.2 % Normal 19-41 [facility] Comment on above: Performed By: #### L 100.0100, L504.2610, L100.9950, L503.6550, L500.4050, L503.6030 ####[facility] [address] [place], [address] MCH (RBC) [Entitic mass] 30.7 pg Normal 27.0-32.0 [facility] Comment on above: Performed By: #### L 100.0100, L504.2610, L100.9950, L503.6550, L500.4050, L503.6030 ####[facility] [address] [place], [address] MCHC (RBC) [Mass/Vol] 32.5 g/dL Normal 32-36 [facility] Comment on above: Performed By: #### L 100.0100, L504.2610, L100.9950, L503.6550, L500.4050, L503.6030 ####[facility] [address] [place], [address] MCV (RBC) [Entitic vol] 94.4 fL High 80-94 [facility] Comment on above: Performed By: #### L 100.0100, L504.2610, L100.9950, L503.6550, L500.4050, L503.6030 ####[facility] [address] [place], [address] Monocytes/100 WBC (Bld) 8.2 % Normal 0-10 [facility] Comment on above: Performed By: #### L 100.0100, L504.2610, L100.9950, L503.6550, L500.4050, L503.6030 ####[facility] [address] [place], [address] Neutrophils/100 WBC (Bld) 61.7 % Normal 47-70 [facility] Comment on above: Performed By: #### L 100.0100, L504.2610, L100.9950, L503.6550, L500.4050, L503.6030 ####[facility] [address] [place], [address] Nucleated RBC (Bld) [#/Vol] 0 10*3/uL Normal 0-5 [facility] Comment on above: Performed By: #### L 100.0100, L504.2610, L100.9950, L503.6550, L500.4050, L503.6030 ####[facility] [address] [place], [address] Platelet mean volume (Bld) [Entitic vol] 10.8 fL Normal 6.2-12.0 [facility] Comment on above: Performed By: #### L 100.0100, L504.2610, L100.9950, L503.6550, L500.4050, L503.6030 ####[facility] [address] [place], [address] Platelets (Bld) [#/Vol] 128 10*3/uL Low 150-450 [facility] Comment on above: Performed By: #### L 100.0100, L504.2610, L100.9950, L503.6550, L500.4050, L503.6030 ####[facility] [address] [place], [address] RBC (Bld) [#/Vol] 3.23 10*6/uL Low 4.6-6.2 [facility] Comment on above: Performed By: #### L 100.0100, L504.2610, L100.9950, L503.6550, L500.4050, L503.6030 ####[facility] [address] [place], [address] RDW SD 41.4 fl Normal 35.1-43.9 [facility] Comment on above: Performed By: #### L 100.0100, L504.2610, L100.9950, L503.6550, L500.4050, L503.6030 ####[facility] [address] [place], [address] WBC (Bld) [#/Vol] 7.2 10*3/uL Normal 4.4-11.0 [facility] Comment on above: Performed By: #### L 100.0100, L504.2610, L100.9950, L503.6550, L500.4050, L503.6030 ####[facility] [address] [place], [address] Calculated total iron bindin g capacityOrdered By: Andre Duarte on 05-28-2024 Total Iron Binding Capacity 268 ug/dL 250-450 [facility] Carbon dioxide, total [Moles /volume] in Central venous bloodOrdered By: Andre Duarte on 05-28-2024 CO2 [Moles/Vol] 23.6 mmol/L 21.0-32.0 [facility] Chloride assayOrdered By: Anabell Duarte on 05-28-2024 Chloride [Moles/Vol] 105 mmol/L 98-108 [facility] Comprehensive Metabolic Prof ilon 05-28-2024 Albumin [Mass/Vol] 4.1 g/dL Normal 3.4-4.8 [facility] Comment on above: Performed By: #### L 100.0100, L504.2610, L100.9950, L503.6550, L500.4050, L503.6030 ####[facility] [address] [place], [address] Albumin/Globulin [Mass ratio] 1.3 {ratio} Normal 0.9-2.4 [facility] Comment on above: Performed By: #### L 100.0100, L504.2610, L100.9950, L503.6550, L500.4050, L503.6030 ####[facility] [address] [place], [address] ALK PHOS 67 U/L Normal 40-129 [facility] Comment on above: Performed By: #### L 100.0100, L504.2610, L100.9950, L503.6550, L500.4050, L503.6030 ####[facility] [address] [place], [address] ALT [Catalytic activity/Vol] 17 U/L Normal <=46 [facility] Comment on above: Performed By: #### L 100.0100, L504.2610, L100.9950, L503.6550, L500.4050, L503.6030 ####[facility] [address] [place], [address] AST [Catalytic activity/Vol] 16 U/L Normal <=37 [facility] Comment on above: Performed By: #### L 100.0100, L504.2610, L100.9950, L503.6550, L500.4050, L503.6030 ####[facility] [address] [place], [address] Bilirubin [Mass/Vol] 0.21 mg/dL Normal 0.00-1.30 [facility] Comment on above: Performed By: #### L 100.0100, L504.2610, L100.9950, L503.6550, L500.4050, L503.6030 ####[facility] [address] [place], [address] BUN/CRE 31.3 RATIO High 10-20 [facility] Comment on above: Performed By: #### L 100.0100, L504.2610, L100.9950, L503.6550, L500.4050, L503.6030 ####[facility] [address], [address] Calcium [Mass/Vol] 9.7 mg/dL Normal 7.6-11.0 [facility] Comment on above: Performed By: #### L 100.0100, L504.2610, L100.9950, L503.6550, L500.4050, L503.6030 ####[facility] [address] [place], [address] Chloride [Moles/Vol] 105 mmol/L Normal 98-108 [facility] Comment on above: Performed By: #### L 100.0100, L504.2610, L100.9950, L503.6550, L500.4050, L503.6030 ####[facility] [address], [address] CO2 [Moles/Vol] 23.6 mmol/L Normal 21.0-32.0 [facility] Comment on above: Performed By: #### L 100.0100, L504.2610, L100.9950, L503.6550, L500.4050, L503.6030 ####[facility] [address] [place], [address] Creatinine [Mass/Vol] 3.09 mg/dL High 0.70-1.20 [facility] Comment on above: Performed By: #### L 100.0100, L504.2610, L100.9950, L503.6550, L500.4050, L503.6030 ####[facility] [address] [place], [address] ECRCL 17.24 ml/min Low 50-250 [facility] Comment on above: Performed By: #### L 100.0100, L504.2610, L100.9950, L503.6550, L500.4050, L503.6030 ####[facility] [address] [place], [address] GAP 14 Normal 5-15 [facility] Comment on above: Performed By: #### L 100.0100, L504.2610, L100.9950, L503.6550, L500.4050, L503.6030 ####[facility] [address] [place], [address] GFR/1.73 sq M.predicted among non-blacks MDRD (S/P/Bld) [Vol rate/Area] 19 mL/min/{1.73_m2} Low >60 [facility] Comment on above: Result Comment: mL/m in/1.73m2 CKD-EPI Creatinine Equation (2020) Performed By: #### L 100.0100, L504.2610, L100.9950, L503.6550, L500.4050, L503.6030 ####[facility] [address] [place], [address] Globulin (S) [Mass/Vol] 3.2 g/dL Normal 2.2-4.2 [facility] Comment on above: Performed By: #### L 100.0100, L504.2610, L100.9950, L503.6550, L500.4050, L503.6030 ####[facility] [id number] [place], [address] Glucose [Mass/Vol] 70 mg/dL Normal 70-99 [facility] Comment on above: Performed By: #### L 100.0100, L504.2610, L100.9950, L503.6550, L500.4050, L503.6030 ####[facility] [facility] [address] [place], [address] Potassium [Moles/Vol] 4.7 mmol/L Normal 3.3-5.1 [facility] Comment on above: Performed By: #### L 100.0100, L504.2610, L100.9950, L503.6550, L500.4050, L503.6030 ####[facility] [address] [place], [address] Sodium [Moles/Vol] 143 mmol/L Normal 133-145 [facility] Comment on above: Performed By: #### L 100.0100, L504.2610, L100.9950, L503.6550, L500.4050, L503.6030 ####[facility] [address] [place], [address] T PROT 7.2 g/dL Normal 5.9-8.4 [facility] Comment on above: Performed By: #### L 100.0100, L504.2610, L100.9950, L503.6550, L500.4050, L503.6030 ####[facility] [address] [place], [address] Urea nitrogen [Mass/Vol] 97 mg/dL High 4-19 [facility] Comment on above: Performed By: #### L 100.0100, L504.2610, L100.9950, L503.6550, L500.4050, L503.6030 ####[facility] [address] [place], [address] Eosinophil percentageOrdered By: Andre Duarte on 05-28-2024 Eosinophils/100 WBC (Bld) 5.0 % 0-5 [facility] Erythrocyte distribution wid th (RBC) [Ratio]Ordered By: Andre Gerald on 05-28-2024 Erythrocyte distribution width (RBC) [Entitic vol] 41.4 fL 35.1-43.9 [facility] Erythrocyte distribution wid th ratioOrdered By: [facility] on 05-28-2024 Erythrocyte distribution width (RBC) [Ratio] 11.9 % 11.6-14.6 [facility] Erythrocyte distribution wid th standard deviationOrdered By: [facility] on 05-28-2024 Erythrocyte distribution width (RBC) [Ratio] 41.4 fl 35.1-43.9 [facility] Estimation of creatinine timur aranceOrdered By: Andre Duarte on 05-28-2024 Estimated Creatinine Clearance Calc 17.24 ml/min Low 50-250 [facility] Ferritinon 05-28-2024 Ferritin [Mass/Vol] 55 ng/mL Normal 37-417 [facility] Comment on above: Performed By: #### L 100.0100, L504.2610, L100.9950, L503.6550, L500.4050, L503.6030 ####[facility] [address] [place], [address] GFR/1.73 sq M.predicted kaveh g non-blacks MDRD (S/P/Bld) [Vol rate/Area]Ordered By: Andre Duarte on 05-28-2024 Estimated GFR (MDRD) Non-Af Amer 19 Low >60 [facility] Comment on above: mL/min/1.73m2 CKD-EP I Creatinine Equation (2020) Glomerular filtration rate ( GFR) estimation/1.73 sq m using serum, plasma, or whole bOrdered By: Andre Duarte on 05-28-2024 GFR/1.73 sq M.predicted among non-blacks MDRD (S/P/Bld) [Vol rate/Area] 19 mL/min/{1.73_m2} Low >60 [facility] Comment on above: mL/min/1.73m2 CKD-EP I Creatinine Equation (2020) Hematocrit Auto (Bld) [Volum e fraction]Ordered By: Andre Duarte on 05-28-2024 Hematocrit (Bld) [Volume fraction] 30.5 % Low 40-54 [facility] Hemoglobin (Reticulocytes) [ Entitic mass]Ordered By: Andre Duarte on 05-28-2024 Reticulocyte Hemoglobin Equivalent 33.4 pg 30-35 [facility] Hemoglobin measurementOrdere d By: Andre Duarte on 05-28-2024 Hemoglobin (Bld) [Mass/Vol] 9.9 g/dL Low 13.0-16.5 [facility] Immature granulocytes/100 WB C Auto (Bld)Ordered By: Andre Duarte on 05-28-2024 Immature granulocytes/100 WBC (Bld) 0.300 % 0.0-0.9 [facility] Comment on above: IG% - Immature Granu locytes (promyelocytes, myelocytes and metamyelocytes) > 1% indicates that a LEFT SHIFT is Present. Immature reticulocyte fracti onOrdered By: Andre Duarte on 05-28-2024 Immature Reticulocyte Fraction 8.10 % 3.00-15.90 [facility] Iron (Unsp spec) [Mass/Mass] Ordered By: Andre Duarte on 05-28-2024 Iron [Mass/Vol] 69 ug/dL 65-175 [facility] Iron measurement (mass/mass) Ordered By: Andre Duarte on 05-28-2024 Iron (Unsp spec) [Mass/Mass] 69 ug/dL 65-175 [facility] Iron saturation [Mass fracti on]Ordered By: Andre Duarte on 05-28-2024 Iron Saturation 26.0 % 9-55 [facility] Iron+Iron Binding Capacityon 05-28-2024 Iron [Mass/Vol] 69 ug/dL Normal 65-175 [facility] Comment on above: Performed By: #### L 100.0100, L504.2610, L100.9950, L503.6550, L500.4050, L503.6030 ####[facility] [address] [place], [address] IRON SATURATION 26.0 Normal 9-55 [facility] Comment on above: Performed By: #### L 100.0100, L504.2610, L100.9950, L503.6550, L500.4050, L503.6030 ####[facility] [address] [place], [address] TIBC 268 ug/dL Normal 250-450 [facility] Comment on above: Performed By: #### L 100.0100, L504.2610, L100.9950, L503.6550, L500.4050, L503.6030 ####[facility] [address] [place], [address] UIBC 199 ug/dL Low 228-428 [facility] Comment on above: Performed By: #### L 100.0100, L504.2610, L100.9950, L503.6550, L500.4050, L503.6030 ####[facility] [address] [place], [address] LDHon 05-28-2024 LDH 153 U/L Normal 87-241 [facility] Comment on above: Order Comment: 1 Performed By: #### L 100.0100, L504.2610, L100.9950, L503.6550, L500.4050, L503.6030 ####[facility] [address] [place], [address] Laboratory - Chemistry and C hemistry - challengeOrdered By: Andre Duarte on 05-28-2024 AST [Catalytic activity/Vol] 16 U/L <38 [facility] Lactate dehydrogenase (LDH) measurementOrdered By: Andre Duarte on 05-28-2024 LDH [Catalytic activity/Vol] 153 U/L 87-241 [facility] Lymphocytes Auto (Unsp spec) [#/Vol]Ordered By: Andre Duarte on 05-28-2024 Lymphocytes (Bld) [#/Vol] 1.74 10*3/uL 0.83-4.51 [facility] Lymphocytes/100 WBC Auto (Un sp spec)Ordered By: Andre Duarte on 05-28-2024 Lymphocytes/100 WBC (Bld) 24.2 % 19-41 [facility] MCV (mean corpuscular volume ) determinationOrdered By: Andre Duarte on 05-28-2024 MCV (RBC) [Entitic vol] 94.4 fL High 80-94 [facility] Mean corpuscular hemoglobin (MCH) determinationOrdered By: Andre Duarte on 05-28-2024 MCH (RBC) [Entitic mass] 30.7 pg 27.0-32.0 [facility] Mean corpuscular hemoglobin concentration (MCHC) determinationOrdered By: Andre Duarte on 05-28-2024 MCHC (RBC) [Mass/Vol] 32.5 g/dL 32-36 [facility] Mean platelet volume determi nationOrdered By: Andre Duarte on 05-28-2024 Platelet mean volume (Bld) [Entitic vol] 10.8 fL 6.2-12.0 [facility] Monocyte percentageOrdered B y: Andre Duarte on 05-28-2024 Monocytes/100 WBC (Bld) 8.2 % 0-10 [facility] Neutrophil percentageOrdered By: Andre Duarte on 05-28-2024 Neutrophils/100 WBC (Bld) 61.7 % 47-70 [facility] No Panel InformationOrdered By: Andre Duarte on 05-28-2024 Unsaturated Iron Binding Capacity 199 ug/dL Low 228-428 [facility] Nucleated red blood cell per centageOrdered By: Andre Duarte on 05-28-2024 Nucleated RBC/100 WBC (Bld) [Ratio] 0 % 0-5 [facility] Oncology Visit Reporton 05-10 Oncology Visit Report Normal [facility] Platelet countOrdered By: Anabell Duarte on 05-28-2024 Platelets (Bld) [#/Vol] 128 10*3/uL Low 150-450 [facility] Potassium (Unsp spec) [Mass/ Vol]Ordered By: Andre Duarte on 05-28-2024 Potassium [Moles/Vol] 4.7 mmol/L 3.3-5.1 [facility] Potassium measurement (mass/ volume)Ordered By: Andre Duarte on 05-28-2024 Potassium (Unsp spec) [Mass/Vol] 4.7 mmol/L 3.3-5.1 [facility] RBC Auto (Bld) [#/Vol]Ordere d By: Andre Duarte on 05-28-2024 RBC (Bld) [#/Vol] 3.23 10*6/uL Low 4.6-6.2 [facility] Retic Panelon 05-28-2024 IM RET FRACTION 8.10 Normal 3.00-15.90 [facility] Comment on above: Performed By: #### L 100.0100, L504.2610, L100.9950, L503.6550, L500.4050, L503.6030 ####[facility] [address] [place], [address] RET-HE 33.4 pg Normal 30-35 [facility] Comment on above: Performed By: #### L 100.0100, L504.2610, L100.9950, L503.6550, L500.4050, L503.6030 ####[facility] [address] [place], [address] Retic Count 1.39 Normal 0.5-1.5 [facility] Comment on above: Performed By: #### L 100.0100, L504.2610, L100.9950, L503.6550, L500.4050, L503.6030 ####[facility] [address] [place], [address] Reticulocyte hemoglobin equi valent (RET-He) measurementOrdered By: Andre Duarte on 05-28-2024 Hemoglobin (Reticulocytes) [Entitic mass] 33.4 pg 30-35 [facility] Reticulocytes Auto (Bld) [#/ Vol]Ordered By: Andre Duarte on 05-28-2024 Reticulocyte Count 1.39 % 0.5-1.5 [facility] Reticulocytes/100 RBC (Bld) 1.39 % 0.5-1.5 [facility] Serum creatinine measurement (mass/volume)Ordered By: Andre Duarte on 05-28-2024 Creatinine [Mass/Vol] 3.09 mg/dL High 0.70-1.20 [facility] Serum globulin measurementOr dered By: Andre Duarte on 05-28-2024 Globulin (S) [Mass/Vol] 3.2 g/dL 2.2-4.2 [facility] Serum glucose measurement (m ass/volume)Ordered By: Andre Duarte on 05-28-2024 Glucose [Mass/Vol] 70 mg/dL 70-99 [facility] Serum or plasma alanine duque otransferase (ALT) measurementOrdered By: Andre Duarte on 05-28-2024 ALT [Catalytic activity/Vol] 17 U/L <47 [facility] Serum or plasma albumin elmira urement (mass/volume)Ordered By: Andre Duarte on 05-28-2024 Albumin [Mass/Vol] 4.1 g/dL 3.4-4.8 [facility] Serum or plasma albumin/glob ulin mass ratioOrdered By: Andre Duarte on 05-28-2024 Albumin/Globulin [Mass ratio] 1.3 {ratio} 0.9-2.4 [facility] Serum or plasma alkaline lissa sphatase measurementOrdered By: Andre Duarte on 05-28-2024 ALP [Catalytic activity/Vol] 67 U/L 40-129 [facility] Serum or plasma calcium elmira urement (mass/volume)Ordered By: Andre Duarte on 05-28-2024 Calcium [Mass/Vol] 9.7 mg/dL 7.6-11.0 [facility] Serum or plasma ferritin latricia surement (mass/volume)Ordered By: Andre Duarte on 05-28-2024 Ferritin [Mass/Vol] 55 ng/mL 37-417 [facility] Serum or plasma iron saturat ion measurement (mass fraction)Ordered By: Andre Duarte on 05-28-2024 Iron saturation [Mass fraction] 26.0 % 9-55 [facility] Serum or plasma urea nitroge n measurement (mass/volume)Ordered By: Andre Duarte on 05-28-2024 Urea nitrogen [Mass/Vol] 97 mg/dL High 4-19 [facility] Sodium levelOrdered By: Tray Duarte on 05-28-2024 Sodium [Moles/Vol] 143 mmol/L 133-145 [facility] Total proteinOrdered By: Doc Duarte on 05-28-2024 Protein [Mass/Vol] 7.2 g/dL 5.9-8.4 [facility] White blood cell (WBC) count Ordered By: Andre Duarte on 05-28-2024 WBC (Bld) [#/Vol] 7.2 10*3/uL 4.4-11.0 [facility] Oncology Visit Reporton 03-13 Oncology Visit Report Normal [facility] Erythropoietinon 03-26-2024 ERYTHROPOIETIN 15.0 mIU/mL Normal 2.6-18.5 [facility] Comment on above: Result Comment: [employer] DxI 800 Immunoassay SystemValues obtained with different assay methods or kits cannotbe used interchangeably. Results cannot be interpreted asabsolute evidence of the presence or absence of malignantdisease.Performed at: [place] [id number] Director: Tanmay Damon PhD, Phone: [phone] Performed By: #### L 500.4050, L100.9950, L503.6030, L3100.1350, L501.5200, L501.6710, L100.0100, L101.9900, L501.2300, L503.0105, L506.0250, L504.2610, L503.6550 ####[facility] [address] [place], [address] C-reactive protein measureme nt by high sensitivity methodOrdered By: Andre Duarte on 03-24-2024 C-Reactive Protein Extended Range < 2.90 mg/L 0.0-3.0 [facility] Comment on above: C-Reactive Protein ( CRP) provides useful information for thediagnosis, therapy and monitoring of inflammatory processesand associated diseases. For the evaluation of Relative Riskfor Cardiovascular Disease, a High Sensitivity CRP (HSCRP)should be ordered. CBC W/Diff, Automatedon 03-12 Absolute Lymph 1.11 X10 3/uL Normal 0.83-4.51 [facility] Comment on above: Performed By: #### L 500.4050, L100.9950, L503.6030, L3100.1350, L501.5200, L501.6710, L100.0100, L101.9900, L501.2300, L503.0105, L506.0250, L504.2610, L503.6550 ####[facility] [address] [place], [place], [id number] Absolute Neut 4.8 X10 3/uL Normal 2.0-7.7 [facility] Comment on above: Performed By: #### L 500.4050, L100.9950, L503.6030, L3100.1350, L501.5200, L501.6710, L100.0100, L101.9900, L501.2300, L503.0105, L506.0250, L504.2610, L503.6550 ####[facility] [address] [place], [place], [id number] Basophils/100 WBC (Bld) 0.6 % Normal 0-1 [facility] Comment on above: Performed By: #### L 500.4050, L100.9950, L503.6030, L3100.1350, L501.5200, L501.6710, L100.0100, L101.9900, L501.2300, L503.0105, L506.0250, L504.2610, L503.6550 ####[facility] [address] [place], [address] Eosinophils/100 WBC (Bld) 4.3 % Normal 0-5 [facility] Comment on above: Performed By: #### L 500.4050, L100.9950, L503.6030, L3100.1350, L501.5200, L501.6710, L100.0100, L101.9900, L501.2300, L503.0105, L506.0250, L504.2610, L503.6550 ####[facility] [address] [place], [address](490) Erythrocyte distribution width (RBC) [Ratio] 13.5 % Normal 11.6-14.6 [facility] Comment on above: Performed By: #### L 500.4050, L100.9950, L503.6030, L3100.1350, L501.5200, L501.6710, L100.0100, L101.9900, L501.2300, L503.0105, L506.0250, L504.2610, L503.6550 ####[facility] [address] [place], [address](780) Hematocrit (Bld) [Volume fraction] 27.4 % Low 40-54 [facility] Comment on above: Performed By: #### L 500.4050, L100.9950, L503.6030, L3100.1350, L501.5200, L501.6710, L100.0100, L101.9900, L501.2300, L503.0105, L506.0250, L504.2610, L503.6550 ####[facility] [address] [place], [address](492) Hemoglobin (Bld) [Mass/Vol] 8.6 g/dL Low 13.0-16.5 [facility] Comment on above: Performed By: #### L 500.4050, L100.9950, L503.6030, L3100.1350, L501.5200, L501.6710, L100.0100, L101.9900, L501.2300, L503.0105, L506.0250, L504.2610, L503.6550 ####[facility] [address] [place], [address] IG% 0.300 Normal 0.0-0.9 [facility] Comment on above: Result Comment: IG% - Immature Granulocytes (promyelocytes, myelocytes andmetamyelocytes) > 1% indicates that a LEFT SHIFT is Present. Performed By: #### L 500.4050, L100.9950, L503.6030, L3100.1350, L501.5200, L501.6710, L100.0100, L101.9900, L501.2300, L503.0105, L506.0250, L504.2610, L503.6550 ####[facility] [address] [place], [address] Lymphocytes/100 WBC (Bld) 16.5 % Low 19-41 [facility] Comment on above: Performed By: #### L 500.4050, L100.9950, L503.6030, L3100.1350, L501.5200, L501.6710, L100.0100, L101.9900, L501.2300, L503.0105, L506.0250, L504.2610, L503.6550 ####[facility] [address] [place], [address] MCH (RBC) [Entitic mass] 30.4 pg Normal 27.0-32.0 [facility] Comment on above: Performed By: #### L 500.4050, L100.9950, L503.6030, L3100.1350, L501.5200, L501.6710, L100.0100, L101.9900, L501.2300, L503.0105, L506.0250, L504.2610, L503.6550 ####[facility] [address], [address] MCHC (RBC) [Mass/Vol] 31.4 g/dL Low 32-36 [facility] Comment on above: Performed By: #### L 500.4050, L100.9950, L503.6030, L3100.1350, L501.5200, L501.6710, L100.0100, L101.9900, L501.2300, L503.0105, L506.0250, L504.2610, L503.6550 ####[facility] [address] [place], [address] MCV (RBC) [Entitic vol] 96.8 fL High 80-94 [facility] Comment on above: Performed By: #### L 500.4050, L100.9950, L503.6030, L3100.1350, L501.5200, L501.6710, L100.0100, L101.9900, L501.2300, L503.0105, L506.0250, L504.2610, L503.6550 ####[facility] [address] [place], [address] Monocytes/100 WBC (Bld) 6.8 % Normal 0-10 [facility] Comment on above: Performed By: #### L 500.4050, L100.9950, L503.6030, L3100.1350, L501.5200, L501.6710, L100.0100, L101.9900, L501.2300, L503.0105, L506.0250, L504.2610, L503.6550 ####[facility] [address], [address] Neutrophils/100 WBC (Bld) 71.5 % High 47-70 [facility] Comment on above: Performed By: #### L 500.4050, L100.9950, L503.6030, L3100.1350, L501.5200, L501.6710, L100.0100, L101.9900, L501.2300, L503.0105, L506.0250, L504.2610, L503.6550 ####[facility] [address] [place], [address] Nucleated RBC (Bld) [#/Vol] 0 10*3/uL Normal 0-5 [facility] Comment on above: Performed By: #### L 500.4050, L100.9950, L503.6030, L3100.1350, L501.5200, L501.6710, L100.0100, L101.9900, L501.2300, L503.0105, L506.0250, L504.2610, L503.6550 ####[facility] [address] [place], [place], [phone] Platelet mean volume (Bld) [Entitic vol] 10.8 fL Normal 6.2-12.0 [facility] Comment on above: Performed By: #### L 500.4050, L100.9950, L503.6030, L3100.1350, L501.5200, L501.6710, L100.0100, L101.9900, L501.2300, L503.0105, L506.0250, L504.2610, L503.6550 ####[facility] [address] [place], [address] Platelets (Bld) [#/Vol] 135 10*3/uL Low 150-450 [facility] Comment on above: Performed By: #### L 500.4050, L100.9950, L503.6030, L3100.1350, L501.5200, L501.6710, L100.0100, L101.9900, L501.2300, L503.0105, L506.0250, L504.2610, L503.6550 ####[facility] [address], [address] RBC (Bld) [#/Vol] 2.83 10*6/uL Low 4.6-6.2 [facility] Comment on above: Performed By: #### L 500.4050, L100.9950, L503.6030, L3100.1350, L501.5200, L501.6710, L100.0100, L101.9900, L501.2300, L503.0105, L506.0250, L504.2610, L503.6550 ####[facility] [address] [place], [address] RDW SD 47.8 fl High 35.1-43.9 [facility] Comment on above: Performed By: #### L 500.4050, L100.9950, L503.6030, L3100.1350, L501.5200, L501.6710, L100.0100, L101.9900, L501.2300, L503.0105, L506.0250, L504.2610, L503.6550 ####[facility] [address] [place], [place], [phone]) WBC (Bld) [#/Vol] 6.7 10*3/uL Normal 4.4-11.0 [facility] Comment on above: Performed By: #### L 500.4050, L100.9950, L503.6030, L3100.1350, L501.5200, L501.6710, L100.0100, L101.9900, L501.2300, L503.0105, L506.0250, L504.2610, L503.6550 ####[facility] [address] [place], [place], [phone] CRPon 03-24-2024 C-REACTIVE PROT < 2.90 Normal 0.0-3.0 [facility] Comment on above: Order Comment: UNKNO WN1N Result Comment: C-Re active Protein (CRP) provides useful information for thediagnosis, therapy and monitoring of inflammatory processesand associated diseases. For the evaluation of Relative Riskfor Cardiovascular Disease, a High Sensitivity CRP (HSCRP)should be ordered. Performed By: #### L 500.4050, L100.9950, L503.6030, L3100.1350, L501.5200, L501.6710, L100.0100, L101.9900, L501.2300, L503.0105, L506.0250, L504.2610, L503.6550 ####[facility] [address] [place], [place], [id number] Comprehensive Metabolic Prof [facility] 03-24-2024 Albumin [Mass/Vol] 3.5 g/dL Normal 3.2-5.0 [facility] Comment on above: Order Comment: UNKNO WN1N Performed By: #### L 500.4050, L100.9950, L503.6030, L3100.1350, L501.5200, L501.6710, L100.0100, L101.9900, L501.2300, L503.0105, L506.0250, L504.2610, L503.6550 ####[facility] [address] [place], [place], [id number] Albumin/Globulin [Mass ratio] 0.9 {ratio} Normal 0.9-2.4 [facility] Comment on above: Order Comment: UNKNO WN1N Performed By: #### L 500.4050, L100.9950, L503.6030, L3100.1350, L501.5200, L501.6710, L100.0100, L101.9900, L501.2300, L503.0105, L506.0250, L504.2610, L503.6550 ####[facility] [address] [place], [place], [id number] ALK P 63 U/L Normal 45-117 [facility] Comment on above: Order Comment: UNKNO WN1N Performed By: #### L 500.4050, L100.9950, L503.6030, L3100.1350, L501.5200, L501.6710, L100.0100, L101.9900, L501.2300, L503.0105, L506.0250, L504.2610, L503.6550 ####[facility] [address] [place], [place], [id number] ALT [Catalytic activity/Vol] 22 U/L Normal 16-61 [facility] Comment on above: Order Comment: UNKNO WN1N Performed By: #### L 500.4050, L100.9950, L503.6030, L3100.1350, L501.5200, L501.6710, L100.0100, L101.9900, L501.2300, L503.0105, L506.0250, L504.2610, L503.6550 ####[facility] [address] [place], [address] AST [Catalytic activity/Vol] 13 U/L Low 15-37 [facility] Comment on above: Order Comment: UNKNO WN1N Performed By: #### L 500.4050, L100.9950, L503.6030, L3100.1350, L501.5200, L501.6710, L100.0100, L101.9900, L501.2300, L503.0105, L506.0250, L504.2610, L503.6550 ####[facility] [address] [place], [place], [id number] Bilirubin [Mass/Vol] 0.40 mg/dL Normal 0.20-1.00 [facility] Comment on above: Order Comment: UNKNO WN1N Result Comment: For patients on eltrombopag therapy, use of Dimension [place] TBIL is not recommended. Performed By: #### L 500.4050, L100.9950, L503.6030, L3100.1350, L501.5200, L501.6710, L100.0100, L101.9900, L501.2300, L503.0105, L506.0250, L504.2610, L503.6550 ####[facility] [address] [place], [place], [phone]) BUN/CRE 35.6 RATIO High 10-20 [facility] Comment on above: Order Comment: UNKNO WN1N Performed By: #### L 500.4050, L100.9950, L503.6030, L3100.1350, L501.5200, L501.6710, L100.0100, L101.9900, L501.2300, L503.0105, L506.0250, L504.2610, L503.6550 ####[facility] [address] [place], [place], [phone]([phone]) CA,Total 10.0 mg/dL Normal 8.5-10.1 [facility] Comment on above: Order Comment: UNKNO WN1N Performed By: #### L 500.4050, L100.9950, L503.6030, L3100.1350, L501.5200, L501.6710, L100.0100, L101.9900, L501.2300, L503.0105, L506.0250, L504.2610, L503.6550 ####[facility] [address] [place], [place], [phone]) Chloride [Moles/Vol] 110 mmol/L High 98-107 [facility] Comment on above: Order Comment: UNKNO WN1N Performed By: #### L 500.4050, L100.9950, L503.6030, L3100.1350, L501.5200, L501.6710, L100.0100, L101.9900, L501.2300, L503.0105, L506.0250, L504.2610, L503.6550 ####[facility] [address] [place], [place], [phone] CO2 [Moles/Vol] 28.0 mmol/L Normal 21.0-32.0 [facility] Comment on above: Order Comment: UNKNO WN1N Performed By: #### L 500.4050, L100.9950, L503.6030, L3100.1350, L501.5200, L501.6710, L100.0100, L101.9900, L501.2300, L503.0105, L506.0250, L504.2610, L503.6550 ####[facility] [address] [place], [place], [phone] Creatinine [Mass/Vol] 2.53 mg/dL High 0.70-1.30 [facility] Comment on above: Order Comment: UNKNO WN1N Result Comment: The validity of the calculated GFR GFRAA in patients over70 years has not been determined. Clinical correlation isessential. Performed By: #### L 500.4050, L100.9950, L503.6030, L3100.1350, L501.5200, L501.6710, L100.0100, L101.9900, L501.2300, L503.0105, L506.0250, L504.2610, L503.6550 ####[facility] [address] [place], [place], [id number] EST GFR - AA 31 mL/min Low >60 [facility] Comment on above: Order Comment: UNKNO WN1N Result Comment: Afri can [place] GFR Calc Performed By: #### L 500.4050, L100.9950, L503.6030, L3100.1350, L501.5200, L501.6710, L100.0100, L101.9900, L501.2300, L503.0105, L506.0250, L504.2610, L503.6550 ####[facility] [address] [place], [place], [id number] GAP 6 Normal 5-15 [facility] Comment on above: Order Comment: UNKNO WN1N Performed By: #### L 500.4050, L100.9950, L503.6030, L3100.1350, L501.5200, L501.6710, L100.0100, L101.9900, L501.2300, L503.0105, L506.0250, L504.2610, L503.6550 ####[facility] [address] [place], [place], [id number] GFR/1.73 sq M.predicted among non-blacks MDRD (S/P/Bld) [Vol rate/Area] 26 mL/min/{1.73_m2} Low >60 [facility] Comment on above: Order Comment: UNKNO WN1N Result Comment: Non- GFR Calc Performed By: #### L 500.4050, L100.9950, L503.6030, L3100.1350, L501.5200, L501.6710, L100.0100, L101.9900, L501.2300, L503.0105, L506.0250, L504.2610, L503.6550 ####[facility] [address] [place], [place], [id number] Globulin (S) [Mass/Vol] 3.7 g/dL Normal 2.2-4.2 [facility] Comment on above: Order Comment: UNKNO WN1N Performed By: #### L 500.4050, L100.9950, L503.6030, L3100.1350, L501.5200, L501.6710, L100.0100, L101.9900, L501.2300, L503.0105, L506.0250, L504.2610, L503.6550 ####[facility] [address] [place], [place], [id number] Glucose [Mass/Vol] 83 mg/dL Normal 74-106 [facility] Comment on above: Order Comment: UNKNO WN1N Performed By: #### L 500.4050, L100.9950, L503.6030, L3100.1350, L501.5200, L501.6710, L100.0100, L101.9900, L501.2300, L503.0105, L506.0250, L504.2610, L503.6550 ####[facility] [address] [place], [address] Potassium [Moles/Vol] 4.6 mmol/L Normal 3.5-5.1 [facility] Comment on above: Order Comment: UNKNO WN1N Performed By: #### L 500.4050, L100.9950, L503.6030, L3100.1350, L501.5200, L501.6710, L100.0100, L101.9900, L501.2300, L503.0105, L506.0250, L504.2610, L503.6550 ####[facility] [address] [place], [address] Sodium [Moles/Vol] 143 mmol/L Normal 136-145 [facility] Comment on above: Order Comment: UNKNO WN1N Performed By: #### L 500.4050, L100.9950, L503.6030, L3100.1350, L501.5200, L501.6710, L100.0100, L101.9900, L501.2300, L503.0105, L506.0250, L504.2610, L503.6550 ####[facility] [address] [place], [address] T PROT 7.2 g/dL Normal 6.4-8.2 [facility] Comment on above: Order Comment: UNKNO WN1N Performed By: #### L 500.4050, L100.9950, L503.6030, L3100.1350, L501.5200, L501.6710, L100.0100, L101.9900, L501.2300, L503.0105, L506.0250, L504.2610, L503.6550 ####[facility] [address] [place], [place], [id number] Urea nitrogen [Mass/Vol] 90 mg/dL High 7-18 [facility] Comment on above: Order Comment: UNKNO WN1N Performed By: #### L 500.4050, L100.9950, L503.6030, L3100.1350, L501.5200, L501.6710, L100.0100, L101.9900, L501.2300, L503.0105, L506.0250, L504.2610, L503.6550 ####[facility] [address] [place], [place], [phone] Erythrocyte Sed Rateon 03-24 SED RATE 31 mm/hr High 0-20 [facility] Comment on above: Performed By: #### L 500.4050, L100.9950, L503.6030, L3100.1350, L501.5200, L501.6710, L100.0100, L101.9900, L501.2300, L503.0105, L506.0250, L504.2610, L503.6550 ####[facility] [address] [place], [place], [phone] Erythrocyte sedimentation ra teOrdered By: Andre Duarte on 03-24-2024 ESR (Bld) [Velocity] 31 mm/h [facility] 0-20 [facility] Erythropoietin (EPO) QnOrder ed By: Andre Duarte on 03-24-2024 Erythropoietin 15.0 mIU/mL 2.6-18.5 [facility] Comment on above: Pedro FonJax UniC el DxI 800 Immunoassay SystemValues obtained with different assay methods or kits cannotbe used interchangeably. Results cannot be interpreted asabsolute evidence of the presence or absence of malignantdisease.Performed at: - [facility] [place], [place] [id number] Director: Tanmay Damon PhD, Phone: [phone] Estimated glomerular filtrat ion rate (GFR) AmericanOrdered By: Andre Duarte on 03-24-2024 Estimated GFR (MDRD) Amer 31 mL/min Low >60 [facility] Comment on above: GFR Calc Ferritinon 03-24-2024 Ferritin [Mass/Vol] 43 ng/mL Normal 26-388 [facility] Comment on above: Order Comment: UNKNO WN1N Performed By: #### L 500.4050, L100.9950, L503.6030, L3100.1350, L501.5200, L501.6710, L100.0100, L101.9900, L501.2300, L503.0105, L506.0250, L504.2610, L503.6550 ####[facility] [address] [place], [place], [id number] Folates, (Folic Acid)on 03-12 FOLATES 11.90 ng/mL Normal 3.1-55.4 [facility] Comment on above: Order Comment: UNKNO WN1N Performed By: #### L 500.4050, L100.9950, L503.6030, L3100.1350, L501.5200, L501.6710, L100.0100, L101.9900, L501.2300, L503.0105, L506.0250, L504.2610, L503.6550 ####[facility] [address] [place], [address] Folic acid measurementOrdere d By: Andre Duarte on 03-24-2024 Folate 11.90 ng/mL 3.1-55.4 [facility] Iron+Iron Binding Capacityon 03-24-2024 Iron [Mass/Vol] 44 ug/dL Low 65-175 [facility] Comment on above: Order Comment: UNKNO WN1N Performed By: #### L 500.4050, L100.9950, L503.6030, L3100.1350, L501.5200, L501.6710, L100.0100, L101.9900, L501.2300, L503.0105, L506.0250, L504.2610, L503.6550 ####[facility] [address] [place], [place], [phone] IRON SATURATION 15.0 Normal 15.0-55.0 [facility] Comment on above: Order Comment: UNKNO WN1N Performed By: #### L 500.4050, L100.9950, L503.6030, L3100.1350, L501.5200, L501.6710, L100.0100, L101.9900, L501.2300, L503.0105, L506.0250, L504.2610, L503.6550 ####[facility] [address] [place], [place], [phone] TIBC 294 ug/dL Normal 250-450 [facility] Comment on above: Order Comment: UNKNO WN1N Performed By: #### L 500.4050, L100.9950, L503.6030, L3100.1350, L501.5200, L501.6710, L100.0100, L101.9900, L501.2300, L503.0105, L506.0250, L504.2610, L503.6550 ####[facility] [address] [place], [place], [phone] LDHon 03-24-2024 LDH 143 U/L Normal 87-241 [facility] Comment on above: Order Comment: UNKNO WN1N Performed By: #### L 500.4050, L100.9950, L503.6030, L3100.1350, L501.5200, L501.6710, L100.0100, L101.9900, L501.2300, L503.0105, L506.0250, L504.2610, L503.6550 ####[facility] [address] [place], [address] Magnesiumon 03-24-2024 Magnesium [Mass/Vol] 1.7 mg/dL Normal 1.6-2.6 [facility] Comment on above: Order Comment: UNKNO WN1N Performed By: #### L 500.4050, L100.9950, L503.6030, L3100.1350, L501.5200, L501.6710, L100.0100, L101.9900, L501.2300, L503.0105, L506.0250, L504.2610, L503.6550 ####[facility] [address] [place], [place], [id number] Magnesium measurementOrdered By: Andre Duarte on 03-24-2024 Magnesium [Mass/Vol] 1.7 mg/dL 1.6-2.6 [facility] Oncology Visit Reporton 03-12 Oncology Visit Report Normal [facility] Phosphoruson 03-24-2024 Phosphate [Mass/Vol] 4.0 mg/dL Normal 2.5-4.9 [facility] Comment on above: Order Comment: UNKNO WN1N Performed By: #### L 500.4050, L100.9950, L503.6030, L3100.1350, L501.5200, L501.6710, L100.0100, L101.9900, L501.2300, L503.0105, L506.0250, L504.2610, L503.6550 ####[facility] [address] [place], [place], [phone] Phosphorus measurementOrdere d By: Andre Duarte on 03-24-2024 Phosphorus Level 4.0 mg/dL 2.5-4.9 [facility] Retic Panelon 03-24-2024 IM RET FRACTION 20.20 High 3.00-15.90 [facility] Comment on above: Performed By: #### L 500.4050, L100.9950, L503.6030, L3100.1350, L501.5200, L501.6710, L100.0100, L101.9900, L501.2300, L503.0105, L506.0250, L504.2610, L503.6550 ####[facility] [address] [place], [address] RET-HE 32.7 pg Normal 30-35 [facility] Comment on above: Performed By: #### L 500.4050, L100.9950, L503.6030, L3100.1350, L501.5200, L501.6710, L100.0100, L101.9900, L501.2300, L503.0105, L506.0250, L504.2610, L503.6550 ####[facility] [address] [place], [address] Retic Count 4.14 High 0.5-1.5 [facility] Comment on above: Performed By: #### L 500.4050, L100.9950, L503.6030, L3100.1350, L501.5200, L501.6710, L100.0100, L101.9900, L501.2300, L503.0105, L506.0250, L504.2610, L503.6550 ####[facility] [address] [place], [address] Serum or plasma erythropoiet in (EPO) measurement (units/volume)Ordered By: Andre Duarte on 03-24-2024 Erythropoietin (EPO) Qn 15.0 mIU/mL 2.6-18.5 [facility] Comment on above: Pedro FonJax UniC el DxI 800 Immunoassay SystemValues obtained with different assay methods or kits cannotbe used interchangeably. Results cannot be interpreted asabsolute evidence of the presence or absence of malignantdisease.Performed at: [address] [id number] Director: Tanmay Damon PhD, Phone: [phone] Vitamin B12on 03-24-2024 Cobalamin (Vitamin B12) [Mass/Vol] 584 pg/mL Normal 211-911 [facility] Comment on above: Performed By: #### L 500.4050, L100.9950, L503.6030, L3100.1350, L501.5200, L501.6710, L100.0100, L101.9900, L501.2300, L503.0105, L506.0250, L504.2610, L503.6550 ####[facility] [address] [place], [address] Vitamin B12 measurementOrder ed By: Andre Duarte on 03-24-2024 Cobalamin (Vitamin B12) [Mass/Vol] 584 pg/mL 211-911 [facility] Gastroenterology Visit Repor ton 03-17-2024 Gastroenterology Visit Report Normal [facility] Absolute neutrophil countOrd ered By: Yuridia Hernandez on 03-14-2024 Neutrophils (Bld) [#/Vol] 4.5 10*3/uL 2.0-7.7 [facility] Basic Metabolic Profile (BMP )on 03-14-2024 BUN/CRE 28.6 RATIO High 10-20 [facility] Comment on above: Performed By: #### L 100.0100, L500.2500, L501.0900 ####[facility] [address] [place], [address] CA,Total 9.9 mg/dL Normal 8.5-10.1 [facility] Comment on above: Performed By: #### L 100.0100, L500.2500, L501.0900 ####[facility] [address] [place], [address] Chloride [Moles/Vol] 104 mmol/L Normal 98-107 [facility] Comment on above: Performed By: #### L 100.0100, L500.2500, L501.0900 ####[facility] [address] [place], [address] CO2 [Moles/Vol] 31.0 mmol/L Normal 21.0-32.0 [facility] Comment on above: Performed By: #### L 100.0100, L500.2500, L501.0900 ####[facility] [address] [place], [address] Creatinine [Mass/Vol] 2.94 mg/dL High 0.70-1.30 [facility] Comment on above: Result Comment: The validity of the calculated GFR GFRAA in patients over70 years has not been determined. Clinical correlation isessential. Performed By: #### L 100.0100, L500.2500, L501.0900 ####[facility] [address] [place], [address] EST GFR - AA 26 mL/min Low >60 [facility] Comment on above: Result Comment: Afri can [place] GFR Calc Performed By: #### L 100.0100, L500.2500, L501.0900 ####[facility] [address] [place], [address] GAP 6 Normal 5-15 [facility] Comment on above: Performed By: #### L 100.0100, L500.2500, L501.0900 ####[facility] [address] [place], [address] GFR/1.73 sq M.predicted among non-blacks MDRD (S/P/Bld) [Vol rate/Area] 22 mL/min/{1.73_m2} Low >60 [facility] Comment on above: Result Comment: Non- GFR Calc Performed By: #### L 100.0100, L500.2500, L501.0900 ####[facility] [address] [place], [address] Glucose [Mass/Vol] 290 mg/dL High 74-106 [facility] Comment on above: Result Comment: Gluc ose result greater than or equal to 200 mg/dLsuggests DIABETES MELLITUS per A.D.A. criteria. Performed By: #### L 100.0100, L500.2500, L501.0900 ####[facility] [address] [place], [address] Potassium [Moles/Vol] 5.3 mmol/L High 3.5-5.1 [facility] Comment on above: Performed By: #### L 100.0100, L500.2500, L501.0900 ####[facility] [address] [place], [address] Sodium [Moles/Vol] 141 mmol/L Normal 136-145 [facility] Comment on above: Performed By: #### L 100.0100, L500.2500, L501.0900 ####[facility] [address] [place], [address] Urea nitrogen [Mass/Vol] 84 mg/dL High 7-18 [facility] Comment on above: Performed By: #### L 100.0100, L500.2500, L501.0900 ####[facility] [address] [place], [address] Basophil percentageOrdered B y: Yuridia Hernandez on 03-14-2024 Basophils/100 WBC (Bld) 0.5 % 0-1 [facility] Blood urea nitrogen (BUN)/cr eatinine ratioOrdered By: Yuridia Hernandez on 03-14-2024 Urea nitrogen/Creatinine [Mass ratio] 28.6 mg/mg High 10-20 [facility] CBC W/Diff, Automatedon Absolute Lymph 1.03 X10 3/uL Normal 0.83-4.51 [facility] Comment on above: Performed By: #### L 100.0100, L500.2500, L501.0900 ####[facility] [address] [place], [address] Absolute Neut 4.5 X10 3/uL Normal 2.0-7.7 [facility] Comment on above: Performed By: #### L 100.0100, L500.2500, L501.0900 ####[facility] [address] [place], [address] Basophils/100 WBC (Bld) 0.5 % Normal 0-1 [facility] Comment on above: Performed By: #### L 100.0100, L500.2500, L501.0900 ####[facility] [address] [place], [address] Eosinophils/100 WBC (Bld) 2.3 % Normal 0-5 [facility] Comment on above: Performed By: #### L 100.0100, L500.2500, L501.0900 ####[facility] [address] [place], [address] Erythrocyte distribution width (RBC) [Ratio] 13.5 % Normal 11.6-14.6 [facility] Comment on above: Performed By: #### L 100.0100, L500.2500, L501.0900 ####[facility] [address] [place], [address] Hematocrit (Bld) [Volume fraction] 29.3 % Low 40-54 [facility] Comment on above: Performed By: #### L 100.0100, L500.2500, L501.0900 ####[facility] [address] [place], [address] Hemoglobin (Bld) [Mass/Vol] 8.9 g/dL Low 13.0-16.5 [facility] Comment on above: Performed By: #### L 100.0100, L500.2500, L501.0900 ####[facility] [address] [place], [address] IG% 0.500 Normal 0.0-0.9 [facility] Comment on above: Result Comment: IG% - Immature Granulocytes (promyelocytes, myelocytes andmetamyelocytes) > 1% indicates that a LEFT SHIFT is Present. Performed By: #### L 100.0100, L500.2500, L501.0900 ####[facility] [address] [place], [address] Lymphocytes/100 WBC (Bld) 16.6 % Low 19-41 [facility] Comment on above: Performed By: #### L 100.0100, L500.2500, L501.0900 ####[facility] [address] [place], [address] MCH (RBC) [Entitic mass] 31.0 pg Normal 27.0-32.0 [facility] Comment on above: Performed By: #### L 100.0100, L500.2500, L501.0900 ####[facility] [address] [place], [address] MCHC (RBC) [Mass/Vol] 30.4 g/dL Low 32-36 [facility] Comment on above: Performed By: #### L 100.0100, L500.2500, L501.0900 ####[facility] [address] [place], [address] MCV (RBC) [Entitic vol] 102.1 fL High 80-94 [facility] Comment on above: Performed By: #### L 100.0100, L500.2500, L501.0900 ####[facility] [address] [place], [address] Monocytes/100 WBC (Bld) 7.7 % Normal 0-10 [facility] Comment on above: Performed By: #### L 100.0100, L500.2500, L501.0900 ####[facility] [address] [place], [address] Neutrophils/100 WBC (Bld) 72.4 % High 47-70 [facility] Comment on above: Performed By: #### L 100.0100, L500.2500, L501.0900 ####[facility] [address] [place], [address] Nucleated RBC (Bld) [#/Vol] 0 10*3/uL Normal 0-5 [facility] Comment on above: Performed By: #### L 100.0100, L500.2500, L501.0900 ####[facility] [address] [place], [address] Platelet mean volume (Bld) [Entitic vol] 11.9 fL Normal 6.2-12.0 [facility] Comment on above: Performed By: #### L 100.0100, L500.2500, L501.0900 ####[facility] [address] [place], [address] Platelets (Bld) [#/Vol] 112 10*3/uL Low 150-450 [facility] Comment on above: Performed By: #### L 100.0100, L500.2500, L501.0900 ####[facility] [address] [place], [address] RBC (Bld) [#/Vol] 2.87 10*6/uL Low 4.6-6.2 [facility] Comment on above: Performed By: #### L 100.0100, L500.2500, L501.0900 ####[facility] [address] [place], [address] RDW SD 51.0 fl High 35.1-43.9 [facility] Comment on above: Performed By: #### L 100.0100, L500.2500, L501.0900 ####[facility] [address] [place], [address] WBC (Bld) [#/Vol] 6.2 10*3/uL Normal 4.4-11.0 [facility] Comment on above: Performed By: #### L 100.0100, L500.2500, L501.0900 ####[facility] [address] [place], [address] Carbon dioxide measurementOr dered By: Yuridia Hernandez on 03-14-2024 CO2 [Moles/Vol] 31.0 mmol/L 21.0-32.0 [facility] Chloride measurementOrdered By: Yuridia Hernandez on 03-14-2024 Chloride [Moles/Vol] 104 mmol/L 98-107 [facility] Eosinophil percentageOrdered By: Yuridia Hernandez on 03-14-2024 Eosinophils/100 WBC (Bld) 2.3 % 0-5 [facility] Erythrocyte distribution wid th (RBC) [Ratio]Ordered By: Yuridia Hernandez on 03-14-2024 Erythrocyte distribution width (RBC) [Entitic vol] 51.0 fL High 35.1-43.9 [facility] Erythrocyte distribution wid th ratioOrdered By: Yuridia Hernandez on 03-14-2024 Erythrocyte distribution width (RBC) [Ratio] 13.5 % 11.6-14.6 [facility] Estimated glomerular filtrat ion rate (GFR) AmericanOrdered By: Yuridia Hernandez on 03-14-2024 Estimated GFR (MDRD) Amer 26 mL/min Low >60 [facility] Comment on above: GFR Calc Glomerular filtration rate ( GFR) estimationOrdered By: Yuridia Hernandez on 03-14-2024 Estimated GFR (MDRD) Non-Af Amer 22 mL/min Low >60 [facility] Comment on above: Non- GFR Calc Glucose measurementOrdered B y: Yuridia Hernandez on 03-14-2024 Glucose [Mass/Vol] 290 mg/dL High 74-106 [facility] Comment on above: Glucose result great er than or equal to 200 mg/dLsuggests DIABETES MELLITUS per A.D.A. criteria. Hematocrit Auto (Bld) [Volum e fraction]Ordered By: Yuridia Hernandez on 03-14-2024 Hematocrit (Bld) [Volume fraction] 29.3 % Low 40-54 [facility] Hemoglobin measurementOrdere d By: Yuridia Hernandez on 03-14-2024 Hemoglobin (Bld) [Mass/Vol] 8.9 g/dL Low 13.0-16.5 [facility] Immature granulocytes/100 WB C Auto (Bld)Ordered By: Yuridia Hernandez on 03-14-2024 Immature granulocytes/100 WBC (Bld) 0.500 % 0.0-0.9 [facility] Comment on above: IG% - Immature Granu locytes (promyelocytes, myelocytes and metamyelocytes) > 1% indicates that a LEFT SHIFT is Present. Lymphocytes Auto (Unsp spec) [#/Vol]Ordered By: Yuridia Hernandez on 03-14-2024 Lymphocytes (Bld) [#/Vol] 1.03 10*3/uL 0.83-4.51 [facility] Lymphocytes/100 WBC Auto (Un sp spec)Ordered By: Yuridia Hernandez on 03-14-2024 Lymphocytes/100 WBC (Bld) 16.6 % Low 19-41 [facility] MCV (mean corpuscular volume ) determinationOrdered By: Yuridia Hernandez on 03-14-2024 MCV (RBC) [Entitic vol] 102.1 fL High 80-94 [facility] Mean corpuscular hemoglobin (MCH) determinationOrdered By: Yuridia Hernandez on 03-14-2024 MCH (RBC) [Entitic mass] 31.0 pg 27.0-32.0 [facility] Mean corpuscular hemoglobin concentration (MCHC) determinationOrdered By: Yuridia Hernandez on 03-14-2024 MCHC (RBC) [Mass/Vol] 30.4 g/dL Low 32-36 [facility] Mean platelet volume determi nationOrdered By: Yuridia Hernandez on 03-14-2024 Platelet mean volume (Bld) [Entitic vol] 11.9 fL 6.2-12.0 [facility] Monocyte percentageOrdered B y: Yuridia Hernandez on 03-14-2024 Monocytes/100 WBC (Bld) 7.7 % 0-10 [facility] Neutrophil percentageOrdered By: Yuridia Hernandez on 03-14-2024 Neutrophils/100 WBC (Bld) 72.4 % High 47-70 [facility] Nucleated red blood cell per centageOrdered By: Yuridia Hernandez on 03-14-2024 Nucleated RBC/100 WBC (Bld) [Ratio] 0 % 0-5 [facility] Platelet countOrdered By: Mike Hernandez on 03-14-2024 Platelets (Bld) [#/Vol] 112 10*3/uL Low 150-450 [facility] Potassium measurementOrdered By: Yuridia Hernandez on 03-14-2024 Potassium [Moles/Vol] 5.3 mmol/L High 3.5-5.1 [facility] Protein+Creatinine Ratio,Uri neon 03-14-2024 PROT:CRE RATIO 329 mg/g CRE High 0-200 [facility] Comment on above: Performed By: #### L 100.0100, L500.2500, L501.0900 ####[facility] [id number] [place], [address] Protein (U) [Mass/Vol] 7.7 mg/dL Normal <11.9 [facility] Comment on above: Performed By: #### L 100.0100, L500.2500, L501.0900 ####[facility] [id number] [place], [address] UR CREAT 23.40 mg/dL Normal NO RANGE EST. [facility] Comment on above: Performed By: #### L 100.0100, L500.2500, L501.0900 ####[facility] [id number] [place], [address] Protein/Creatinine (U) [Mass ratio]Ordered By: Yuridia Hernandez on 03-14-2024 Urine Protein/Creatinine Ratio 329 mg/g CRE High 0-200 [facility] RBC Auto (Bld) [#/Vol]Ordere d By: Yuridia Hernandez on 03-14-2024 RBC (Bld) [#/Vol] 2.87 10*6/uL Low 4.6-6.2 [facility] Random urine protein measure mentOrdered By: Yuridia Hernandez on 03-14-2024 Protein (U) [Mass/Vol] 7.7 mg/dL 0.0-11.8 [facility] Serum anion gap measurementO rdered By: Yuridia Hernandez on 03-14-2024 Anion gap [Moles/Vol] 6 mmol/L 5-15 [facility] Serum or plasma calcium elmira urement (mass/volume)Ordered By: Yuridia Hernandez on 03-14-2024 Calcium [Mass/Vol] 9.9 mg/dL 8.5-10.1 [facility] Serum or plasma creatinine m easurement (mass/volume)Ordered By: Yuridia Hernandez on 03-14-2024 Creatinine [Mass/Vol] 2.94 mg/dL High 0.70-1.30 [facility] Comment on above: The validity of the calculated GFR & GFRAA in patients over 70 years has not been determined. Clinical correlation is essential. Serum or plasma urea nitroge n measurement (mass/volume)Ordered By: Yuridia Hernandez on 03-14-2024 Urea nitrogen [Mass/Vol] 84 mg/dL High - [facility] Sodium levelOrdered By: Yuridia Hernandez on 03-14-2024 Sodium [Moles/Vol] 141 mmol/L 136-145 [facility] Urine creatinine measurement (mass/volume)Ordered By: Yuridia Hernandez on 03-14-2024 Creatinine (U) [Mass/Vol] 23.40 mg/dL NO RANGE EST. [facility] White blood cell (WBC) count Ordered By: Yuridia Hernandez on 03-14-2024 WBC (Bld) [#/Vol] 6.2 10*3/uL 4.4-11.0 [facility] Basic Metabolic Profile (BMP )on 03-08-2024 BUN Normal 09-26 [facility] Comment on above: Result Comment: Canc elled via OM: Order cancelled - Patient discharged Performed By: #### L 100.0100, L500.2500 ####[facility] [address] [place], [address] BUN/CRE Normal - [facility] Comment on above: Result Comment: Canc elled via OM: Order cancelled - Patient discharged Performed By: #### L 100.0100, L500.2500 ####[facility] [address] [place], [address] CA,Total Normal 8.5-10.1 [facility] Comment on above: Result Comment: Canc elled via OM: Order cancelled - Patient discharged Performed By: #### L 100.0100, L500.2500 ####[facility] [address] [place], [address] CL Normal 98-107 [facility] Comment on above: Result Comment: Canc elled via OM: Order cancelled - Patient discharged Performed By: #### L 100.0100, L500.2500 ####[facility] [address] [place], [address] CO2 Normal 21.0-32.0 [facility] Comment on above: Result Comment: Canc elled via OM: Order cancelled - Patient discharged Performed By: #### L 100.0100, L500.2500 ####[facility] [address] [place], [address] CREAT,SERUM Normal 0.70-1.30 [facility] Comment on above: Result Comment: Canc elled via OM: Order cancelled - Patient discharged Performed By: #### L 100.0100, L500.2500 ####[facility] [address] [place], [address] EST GFR Normal >60 [facility] Comment on above: Result Comment: Canc elled via OM: Order cancelled - Patient discharged Performed By: #### L 100.0100, L500.2500 ####[facility] [address] [place], [address] EST GFR - AA Normal >60 [facility] Comment on above: Result Comment: Canc elled via OM: Order cancelled - Patient discharged Performed By: #### L 100.0100, L500.2500 ####[facility] [address] [place], [address] GAP Normal 5-15 [facility] Comment on above: Result Comment: Canc elled via OM: Order cancelled - Patient discharged Performed By: #### L 100.0100, L500.2500 ####[facility] [address] [place], [address] GLU Normal 74-106 [facility] Comment on above: Result Comment: Canc elled via OM: Order cancelled - Patient discharged Performed By: #### L 100.0100, L500.2500 ####[facility] [address] [place], [address] Potassium Normal 3.5-5.1 [facility] Comment on above: Result Comment: Canc elled via OM: Order cancelled - Patient discharged Performed By: #### L 100.0100, L500.2500 ####[facility] [address] [place], [address] Basic Metabolic Profile (BMP) Normal 136-145 [facility] Comment on above: Result Comment: Canc elled via OM: Order cancelled - Patient discharged Performed By: #### L 100.0100, L500.2500 ####[facility] [address] [place], [address] CBC W/Diff, Automatedon 12-2 Absolute Neut Normal 2.0-7.7 [facility] Comment on above: Result Comment: Canc elled via OM: Order cancelled - Patient discharged Performed By: #### L 100.0100, L500.2500 ####[facility] [address] [place], [address] HCT Normal 40-54 [facility] Comment on above: Result Comment: Canc elled via OM: Order cancelled - Patient discharged Performed By: #### L 100.0100, L500.2500 ####[facility] [address], [address] HGB Normal 13.0-16.5 [facility] Comment on above: Result Comment: Canc elled via OM: Order cancelled - Patient discharged Performed By: #### L 100.0100, L500.2500 ####[facility] [address] [place], [address] MCH Normal 27.0-32.0 [facility] Comment on above: Result Comment: Canc elled via OM: Order cancelled - Patient discharged Performed By: #### L 100.0100, L500.2500 ####[facility] [address] [place], [address] MCHC Normal 32-36 [facility] Comment on above: Result Comment: Canc elled via OM: Order cancelled - Patient discharged Performed By: #### L 100.0100, L500.2500 ####[facility] [address] [place], [address] MCV Normal 80-94 [facility] Comment on above: Result Comment: Canc elled via OM: Order cancelled - Patient discharged Performed By: #### L 100.0100, L500.2500 ####[facility] [address] [place], [address] NEUT% Normal 47-70 [facility] Comment on above: Result Comment: Canc elled via OM: Order cancelled - Patient discharged Performed By: #### L 100.0100, L500.2500 ####[facility] [address] [place], [address] PLT Normal 150-450 [facility] Comment on above: Result Comment: Canc elled via OM: Order cancelled - Patient discharged Performed By: #### L 100.0100, L500.2500 ####[facility] [address] [place], [address] RBC Normal 4.6-6.2 [facility] Comment on above: Result Comment: Canc elled via OM: Order cancelled - Patient discharged Performed By: #### L 100.0100, L500.2500 ####[facility] [address] [place], [address] RDW CV Normal 11.6-14.6 [facility] Comment on above: Result Comment: Canc elled via OM: Order cancelled - Patient discharged Performed By: #### L 100.0100, L500.2500 ####[facility] [address] [place], [address] RDW SD Normal 35.1-43.9 [facility] Comment on above: Result Comment: Canc elled via OM: Order cancelled - Patient discharged Performed By: #### L 100.0100, L500.2500 ####[facility] [address] [place], [address] WBC Normal 4.4-11.0 [facility] Comment on above: Result Comment: Canc elled via OM: Order cancelled - Patient discharged Performed By: #### L 100.0100, L500.2500 ####[facility] [address] [place], [address] Basic Metabolic Profile (BMP )on 03-07-2024 BUN Normal 7-18 [facility] Comment on above: Result Comment: Canc elled via OM: Order cancelled - Patient discharged Performed By: #### L 100.0100, L500.2500 ####[facility] [address] [place], [address] BUN/CRE Normal 10-20 [facility] Comment on above: Result Comment: Canc elled via OM: Order cancelled - Patient discharged Performed By: #### L 100.0100, L500.2500 ####[facility] [address] [place], [address] CA,Total Normal 8.5-10.1 [facility] Comment on above: Result Comment: Canc elled via OM: Order cancelled - Patient discharged Performed By: #### L 100.0100, L500.2500 ####[facility] [address] [place], [address] CL Normal 98-107 [facility] Comment on above: Result Comment: Canc elled via OM: Order cancelled - Patient discharged Performed By: #### L 100.0100, L500.2500 ####[facility] [address] [place], [address] CO2 Normal 21.0-32.0 [facility] Comment on above: Result Comment: Canc elled via OM: Order cancelled - Patient discharged Performed By: #### L 100.0100, L500.2500 ####[facility] [address] [place], [address] CREAT,SERUM Normal 0.70-1.30 [facility] Comment on above: Result Comment: Canc elled via OM: Order cancelled - Patient discharged Performed By: #### L 100.0100, L500.2500 ####[facility] [address] [place], [address] EST GFR Normal >60 [facility] Comment on above: Result Comment: Canc elled via OM: Order cancelled - Patient discharged Performed By: #### L 100.0100, L500.2500 ####[facility] [address] [place], [address] EST GFR - AA Normal >60 [facility] Comment on above: Result Comment: Canc elled via OM: Order cancelled - Patient discharged Performed By: #### L 100.0100, L500.2500 ####[facility] [address], [address] GAP Normal 5-15 [facility] Comment on above: Result Comment: Canc elled via OM: Order cancelled - Patient discharged Performed By: #### L 100.0100, L500.2500 ####[facility] [address] [place], [address] GLU Normal 74-106 [facility] Comment on above: Result Comment: Canc elled via OM: Order cancelled - Patient discharged Performed By: #### L 100.0100, L500.2500 ####[facility] [address], [address] Potassium Normal 3.5-5.1 [facility] Comment on above: Result Comment: Canc elled via OM: Order cancelled - Patient discharged Performed By: #### L 100.0100, L500.2500 ####[facility] [address] [place], [address] Basic Metabolic Profile (BMP) Normal 136-145 [facility] Comment on above: Result Comment: Canc elled via OM: Order cancelled - Patient discharged Performed By: #### L 100.0100, L500.2500 ####[facility] [address] [place], [address] CBC W/Diff, Automatedon 12-2 Absolute Neut Normal 2.0-7.7 [facility] Comment on above: Result Comment: Canc elled via OM: Order cancelled - Patient discharged Performed By: #### L 100.0100, L500.2500 ####[facility] [address] [place], [address] HCT Normal 40-54 [facility] Comment on above: Result Comment: Canc elled via OM: Order cancelled - Patient discharged Performed By: #### L 100.0100, L500.2500 ####[facility] [address] [place], [address] HGB Normal 13.0-16.5 [facility] Comment on above: Result Comment: Canc elled via OM: Order cancelled - Patient discharged Performed By: #### L 100.0100, L500.2500 ####[facility] [address] [place], [address] MCH Normal 27.0-32.0 [facility] Comment on above: Result Comment: Canc elled via OM: Order cancelled - Patient discharged Performed By: #### L 100.0100, L500.2500 ####[facility] [address] [place], [address] MCHC Normal 32-36 [facility] Comment on above: Result Comment: Canc elled via OM: Order cancelled - Patient discharged Performed By: #### L 100.0100, L500.2500 ####[facility] [address], [address] MCV Normal 80-94 [facility] Comment on above: Result Comment: Canc elled via OM: Order cancelled - Patient discharged Performed By: #### L 100.0100, L500.2500 ####[facility] [address], [address] NEUT% Normal 47-70 [facility] Comment on above: Result Comment: Canc elled via OM: Order cancelled - Patient discharged Performed By: #### L 100.0100, L500.2500 ####[facility] [address] [place], [address] PLT Normal 150-450 [facility] Comment on above: Result Comment: Canc elled via OM: Order cancelled - Patient discharged Performed By: #### L 100.0100, L500.2500 ####[facility] [address] [place], [address] RBC Normal 4.6-6.2 [facility] Comment on above: Result Comment: Canc elled via OM: Order cancelled - Patient discharged Performed By: #### L 100.0100, L500.2500 ####[facility] [address] [place], [address] RDW CV Normal 11.6-14.6 [facility] Comment on above: Result Comment: Canc elled via OM: Order cancelled - Patient discharged Performed By: #### L 100.0100, L500.2500 ####[facility] [address], [address] RDW SD Normal 35.1-43.9 [facility] Comment on above: Result Comment: Canc elled via OM: Order cancelled - Patient discharged Performed By: #### L 100.0100, L500.2500 ####[facility] [address], [address] WBC Normal 4.4-11.0 [facility] Comment on above: Result Comment: Canc elled via OM: Order cancelled - Patient discharged Performed By: #### L 100.0100, L500.2500 ####[facility] [address], [address] Basic Metabolic Profile (BMP )on 03-06-2024 BUN Normal 7-18 [facility] Comment on above: Result Comment: Canc elled via OM: Order cancelled - Patient discharged Performed By: #### L 100.0100, L500.2500 ####[facility] [address] [place], [address] BUN/CRE Normal 10-20 [facility] Comment on above: Result Comment: Canc elled via OM: Order cancelled - Patient discharged Performed By: #### L 100.0100, L500.2500 ####[facility] [address], [address] CA,Total Normal 8.5-10.1 [facility] Comment on above: Result Comment: Canc elled via OM: Order cancelled - Patient discharged Performed By: #### L 100.0100, L500.2500 ####[facility] [address], [address] CL Normal 98-107 [facility] Comment on above: Result Comment: Canc elled via OM: Order cancelled - Patient discharged Performed By: #### L 100.0100, L500.2500 ####[facility] [address] [place], [address] CO2 Normal 21.0-32.0 [facility] Comment on above: Result Comment: Canc elled via OM: Order cancelled - Patient discharged Performed By: #### L 100.0100, L500.2500 ####[facility] [address] [place], [address] CREAT,SERUM Normal 0.70-1.30 [facility] Comment on above: Result Comment: Canc elled via OM: Order cancelled - Patient discharged Performed By: #### L 100.0100, L500.2500 ####[facility] [address] [place], [address] EST GFR Normal >60 [facility] Comment on above: Result Comment: Canc elled via OM: Order cancelled - Patient discharged Performed By: #### L 100.0100, L500.2500 ####[facility] [address] [place], [address] EST GFR - AA Normal >60 [facility] Comment on above: Result Comment: Canc elled via OM: Order cancelled - Patient discharged Performed By: #### L 100.0100, L500.2500 ####[facility] [address] [place], [address] GAP Normal 5-15 [facility] Comment on above: Result Comment: Canc elled via OM: Order cancelled - Patient discharged Performed By: #### L 100.0100, L500.2500 ####[facility] [address] [place], [address] GLU Normal 74-106 [facility] Comment on above: Result Comment: Canc elled via OM: Order cancelled - Patient discharged Performed By: #### L 100.0100, L500.2500 ####[facility] [address] [place], [address] Potassium Normal 3.5-5.1 [facility] Comment on above: Result Comment: Canc elled via OM: Order cancelled - Patient discharged Performed By: #### L 100.0100, L500.2500 ####[facility] [address] [place], [address] Basic Metabolic Profile (BMP) Normal 136-145 [facility] Comment on above: Result Comment: Canc elled via OM: Order cancelled - Patient discharged Performed By: #### L 100.0100, L500.2500 ####[facility] [address] [place], [address] CBC W/Diff, Automatedon 12-2 Absolute Neut Normal 2.0-7.7 [facility] Comment on above: Result Comment: Canc elled via OM: Order cancelled - Patient discharged Performed By: #### L 100.0100, L500.2500 ####[facility] [address] [place], [address] HCT Normal 40-54 [facility] Comment on above: Result Comment: Canc elled via OM: Order cancelled - Patient discharged Performed By: #### L 100.0100, L500.2500 ####[facility] [address] [place], [address] HGB Normal 13.0-16.5 [facility] Comment on above: Result Comment: Canc elled via OM: Order cancelled - Patient discharged Performed By: #### L 100.0100, L500.2500 ####[facility] [address] [place], [address] MCH Normal 27.0-32.0 [facility] Comment on above: Result Comment: Canc elled via OM: Order cancelled - Patient discharged Performed By: #### L 100.0100, L500.2500 ####[facility] [address] [place], [address] MCHC Normal 32-36 [facility] Comment on above: Result Comment: Canc elled via OM: Order cancelled - Patient discharged Performed By: #### L 100.0100, L500.2500 ####[facility] [address] [place], [address] MCV Normal 80-94 [facility] Comment on above: Result Comment: Canc elled via OM: Order cancelled - Patient discharged Performed By: #### L 100.0100, L500.2500 ####[facility] [address] [place], [address] NEUT% Normal 47-70 [facility] Comment on above: Result Comment: Canc elled via OM: Order cancelled - Patient discharged Performed By: #### L 100.0100, L500.2500 ####[facility] [address] [place], [address] PLT Normal 150-450 [facility] Comment on above: Result Comment: Canc elled via OM: Order cancelled - Patient discharged Performed By: #### L 100.0100, L500.2500 ####[facility] [address] [place], [address] RBC Normal 4.6-6.2 [facility] Comment on above: Result Comment: Canc elled via OM: Order cancelled - Patient discharged Performed By: #### L 100.0100, L500.2500 ####[facility] [address] [place], [address] RDW CV Normal 11.6-14.6 [facility] Comment on above: Result Comment: Canc elled via OM: Order cancelled - Patient discharged Performed By: #### L 100.0100, L500.2500 ####[facility] [address] [place], [address] RDW SD Normal 35.1-43.9 [facility] Comment on above: Result Comment: Canc elled via OM: Order cancelled - Patient discharged Performed By: #### L 100.0100, L500.2500 ####[facility] [address], [address] WBC Normal 4.4-11.0 [facility] Comment on above: Result Comment: Canc elled via OM: Order cancelled - Patient discharged Performed By: #### L 100.0100, L500.2500 ####[facility] [address] [place], [address] Basic Metabolic Profile (BMP )on 03-05-2024 BUN Normal 7-18 [facility] Comment on above: Result Comment: Canc elled via OM: Order cancelled - Patient discharged Performed By: #### L 100.0100, L500.2500 ####[facility] [address] [place], [address] BUN/CRE Normal 10-20 [facility] Comment on above: Result Comment: Canc elled via OM: Order cancelled - Patient discharged Performed By: #### L 100.0100, L500.2500 ####[facility] [address] [place], [address] CA,Total Normal 8.5-10.1 [facility] Comment on above: Result Comment: Canc elled via OM: Order cancelled - Patient discharged Performed By: #### L 100.0100, L500.2500 ####[facility] [address] [place], [address] CL Normal 98-107 [facility] Comment on above: Result Comment: Canc elled via OM: Order cancelled - Patient discharged Performed By: #### L 100.0100, L500.2500 ####[facility] [address], [address] CO2 Normal 21.0-32.0 [facility] Comment on above: Result Comment: Canc elled via OM: Order cancelled - Patient discharged Performed By: #### L 100.0100, L500.2500 ####[facility] [address] [place], [address] CREAT,SERUM Normal 0.70-1.30 [facility] Comment on above: Result Comment: Canc elled via OM: Order cancelled - Patient discharged Performed By: #### L 100.0100, L500.2500 ####[facility] [address] [place], [address] EST GFR Normal >60 [facility] Comment on above: Result Comment: Canc elled via OM: Order cancelled - Patient discharged Performed By: #### L 100.0100, L500.2500 ####[facility] [address], [address] EST GFR - AA Normal >60 [facility] Comment on above: Result Comment: Canc elled via OM: Order cancelled - Patient discharged Performed By: #### L 100.0100, L500.2500 ####[facility] [address] [place], [address] GAP Normal 5-15 [facility] Comment on above: Result Comment: Canc elled via OM: Order cancelled - Patient discharged Performed By: #### L 100.0100, L500.2500 ####[facility] [address] [place], [address] GLU Normal 74-106 [facility] Comment on above: Result Comment: Canc elled via OM: Order cancelled - Patient discharged Performed By: #### L 100.0100, L500.2500 ####[facility] [address] [place], [address] Potassium Normal 3.5-5.1 [facility] Comment on above: Result Comment: Canc elled via OM: Order cancelled - Patient discharged Performed By: #### L 100.0100, L500.2500 ####[facility] [address] [place], [address] Basic Metabolic Profile (BMP) Normal 136-145 [facility] Comment on above: Result Comment: Canc elled via OM: Order cancelled - Patient discharged Performed By: #### L 100.0100, L500.2500 ####[facility] [address] [place], [address] CBC W/Diff, Automatedon 12-2 Absolute Neut Normal 2.0-7.7 [facility] Comment on above: Result Comment: Canc elled via OM: Order cancelled - Patient discharged Performed By: #### L 100.0100, L500.2500 ####[facility] [address] [place], [address] HCT Normal 40-54 [facility] Comment on above: Result Comment: Canc elled via OM: Order cancelled - Patient discharged Performed By: #### L 100.0100, L500.2500 ####[facility] [address] [place], [address] HGB Normal 13.0-16.5 [facility] Comment on above: Result Comment: Canc elled via OM: Order cancelled - Patient discharged Performed By: #### L 100.0100, L500.2500 ####[facility] [address] [place], [address] MCH Normal 27.0-32.0 [facility] Comment on above: Result Comment: Canc elled via OM: Order cancelled - Patient discharged Performed By: #### L 100.0100, L500.2500 ####[facility] [address] [place], [address] MCHC Normal 32-36 [facility] Comment on above: Result Comment: Canc elled via OM: Order cancelled - Patient discharged Performed By: #### L 100.0100, L500.2500 ####[facility] [address] [place], [address] MCV Normal 80-94 [facility] Comment on above: Result Comment: Canc elled via OM: Order cancelled - Patient discharged Performed By: #### L 100.0100, L500.2500 ####[facility] [address] [place], [address] NEUT% Normal 47-70 [facility] Comment on above: Result Comment: Canc elled via OM: Order cancelled - Patient discharged Performed By: #### L 100.0100, L500.2500 ####[facility] [address] [place], [address] PLT Normal 150-450 [facility] Comment on above: Result Comment: Canc elled via OM: Order cancelled - Patient discharged Performed By: #### L 100.0100, L500.2500 ####[facility] [address] [place], [address] RBC Normal 4.6-6.2 [facility] Comment on above: Result Comment: Canc elled via OM: Order cancelled - Patient discharged Performed By: #### L 100.0100, L500.2500 ####[facility] [address] [place], [address] RDW CV Normal 11.6-14.6 [facility] Comment on above: Result Comment: Canc elled via OM: Order cancelled - Patient discharged Performed By: #### L 100.0100, L500.2500 ####[facility] [address] [place], [address] RDW SD Normal 35.1-43.9 [facility] Comment on above: Result Comment: Canc elled via OM: Order cancelled - Patient discharged Performed By: #### L 100.0100, L500.2500 ####[facility] [address] [place], [address] WBC Normal 4.4-11.0 [facility] Comment on above: Result Comment: Canc elled via OM: Order cancelled - Patient discharged Performed By: #### L 100.0100, L500.2500 ####[facility] [address] [place], [address] Basic Metabolic Profile (BMP )on 03-04-2024 BUN Normal 7-18 [facility] Comment on above: Result Comment: Canc elled via OM: Order cancelled - Patient discharged Performed By: #### L 500.2500, L100.0100 ####[facility] [address] [place], [address] BUN/CRE Normal 10-20 [facility] Comment on above: Result Comment: Canc elled via OM: Order cancelled - Patient discharged Performed By: #### L 500.2500, L100.0100 ####[facility] [address] [place], [address] CA,Total Normal 8.5-10.1 [facility] Comment on above: Result Comment: Canc elled via OM: Order cancelled - Patient discharged Performed By: #### L 500.2500, L100.0100 ####[facility] [address] [place], [address] CL Normal 98-107 [facility] Comment on above: Result Comment: Canc elled via OM: Order cancelled - Patient discharged Performed By: #### L 500.2500, L100.0100 ####[facility] [address] [place], [address] CO2 Normal 21.0-32.0 [facility] Comment on above: Result Comment: Canc elled via OM: Order cancelled - Patient discharged Performed By: #### L 500.2500, L100.0100 ####[facility] [address] [place], [address] CREAT,SERUM Normal 0.70-1.30 [facility] Comment on above: Result Comment: Canc elled via OM: Order cancelled - Patient discharged Performed By: #### L 500.2500, L100.0100 ####[facility] [address] [place], [address] EST GFR Normal >60 [facility] Comment on above: Result Comment: Canc elled via OM: Order cancelled - Patient discharged Performed By: #### L 500.2500, L100.0100 ####[facility] [address] [place], [address] EST GFR - AA Normal >60 [facility] Comment on above: Result Comment: Canc elled via OM: Order cancelled - Patient discharged Performed By: #### L 500.2500, L100.0100 ####[facility] [address] [place], [address] GAP Normal 5-15 [facility] Comment on above: Result Comment: Canc elled via OM: Order cancelled - Patient discharged Performed By: #### L 500.2500, L100.0100 ####[facility] [address] [place], [address] GLU Normal 74-106 [facility] Comment on above: Result Comment: Canc elled via OM: Order cancelled - Patient discharged Performed By: #### L 500.2500, L100.0100 ####[facility] [address] [place], [address] Potassium Normal 3.5-5.1 [facility] Comment on above: Result Comment: Canc elled via OM: Order cancelled - Patient discharged Performed By: #### L 500.2500, L100.0100 ####[facility] [address] [place], [address] Basic Metabolic Profile (BMP) Normal 136-145 [facility] Comment on above: Result Comment: Canc elled via OM: Order cancelled - Patient discharged Performed By: #### L 500.2500, L100.0100 ####[facility] [address] [place], [address] CBC W/Diff, Automatedon 12-2 Absolute Neut Normal 2.0-7.7 [facility] Comment on above: Result Comment: Canc elled via OM: Order cancelled - Patient discharged Performed By: #### L 500.2500, L100.0100 ####[facility] [address] [place], [address] HCT Normal 40-54 [facility] Comment on above: Result Comment: Canc elled via OM: Order cancelled - Patient discharged Performed By: #### L 500.2500, L100.0100 ####[facility] [address], [address] HGB Normal 13.0-16.5 [facility] Comment on above: Result Comment: Canc elled via OM: Order cancelled - Patient discharged Performed By: #### L 500.2500, L100.0100 ####[facility] [address] [place], [address] MCH Normal 27.0-32.0 [facility] Comment on above: Result Comment: Canc elled via OM: Order cancelled - Patient discharged Performed By: #### L 500.2500, L100.0100 ####[facility] [address] [place], [address] MCHC Normal 32-36 [facility] Comment on above: Result Comment: Canc elled via OM: Order cancelled - Patient discharged Performed By: #### L 500.2500, L100.0100 ####[facility] [address] [place], [address] MCV Normal 80-94 [facility] Comment on above: Result Comment: Canc elled via OM: Order cancelled - Patient discharged Performed By: #### L 500.2500, L100.0100 ####[facility] [address] [place], [address] NEUT% Normal 47-70 [facility] Comment on above: Result Comment: Canc elled via OM: Order cancelled - Patient discharged Performed By: #### L 500.2500, L100.0100 ####[facility] [address] [place], [address] PLT Normal 150-450 [facility] Comment on above: Result Comment: Canc elled via OM: Order cancelled - Patient discharged Performed By: #### L 500.2500, L100.0100 ####[facility] [address] [place], [address] RBC Normal 4.6-6.2 [facility] Comment on above: Result Comment: Canc elled via OM: Order cancelled - Patient discharged Performed By: #### L 500.2500, L100.0100 ####[facility] [address] [place], [address] RDW CV Normal 11.6-14.6 [facility] Comment on above: Result Comment: Canc elled via OM: Order cancelled - Patient discharged Performed By: #### L 500.2500, L100.0100 ####[facility] [address] [place], [address] RDW SD Normal 35.1-43.9 [facility] Comment on above: Result Comment: Canc elled via OM: Order cancelled - Patient discharged Performed By: #### L 500.2500, L100.0100 ####[facility] [address] [place], [address] WBC Normal 4.4-11.0 [facility] Comment on above: Result Comment: Canc elled via OM: Order cancelled - Patient discharged Performed By: #### L 500.2500, L100.0100 ####[facility] [address], [address] Basic Metabolic Profile (BMP )on 03-03-2024 BUN Normal 7-18 [facility] Comment on above: Result Comment: Canc elled via OM: Order cancelled - Patient discharged Performed By: #### L 500.2500, L100.0100 ####[facility] [address] [place], [address] BUN/CRE Normal 10-20 [facility] Comment on above: Result Comment: Canc elled via OM: Order cancelled - Patient discharged Performed By: #### L 500.2500, L100.0100 ####[facility] [address] [place], [address] CA,Total Normal 8.5-10.1 [facility] Comment on above: Result Comment: Canc elled via OM: Order cancelled - Patient discharged Performed By: #### L 500.2500, L100.0100 ####[facility] [address] [place], [address] CL Normal 98-107 [facility] Comment on above: Result Comment: Canc elled via OM: Order cancelled - Patient discharged Performed By: #### L 500.2500, L100.0100 ####[facility] [address], [address] CO2 Normal 21.0-32.0 [facility] Comment on above: Result Comment: Canc elled via OM: Order cancelled - Patient discharged Performed By: #### L 500.2500, L100.0100 ####[facility] [address] [place], [address] CREAT,SERUM Normal 0.70-1.30 [facility] Comment on above: Result Comment: Canc elled via OM: Order cancelled - Patient discharged Performed By: #### L 500.2500, L100.0100 ####[facility] [address] [place], [address] EST GFR Normal >60 [facility] Comment on above: Result Comment: Canc elled via OM: Order cancelled - Patient discharged Performed By: #### L 500.2500, L100.0100 ####[facility] [address] [place], [address] EST GFR - AA Normal >60 [facility] Comment on above: Result Comment: Canc elled via OM: Order cancelled - Patient discharged Performed By: #### L 500.2500, L100.0100 ####[facility] [address] [place], [address] GAP Normal 5-15 [facility] Comment on above: Result Comment: Canc elled via OM: Order cancelled - Patient discharged Performed By: #### L 500.2500, L100.0100 ####[facility] [address], [address] GLU Normal 74-106 [facility] Comment on above: Result Comment: Canc elled via OM: Order cancelled - Patient discharged Performed By: #### L 500.2500, L100.0100 ####[facility] [address], [address] Potassium Normal 3.5-5.1 [facility] Comment on above: Result Comment: Canc elled via OM: Order cancelled - Patient discharged Performed By: #### L 500.2500, L100.0100 ####[facility] [address] [place], [address] Basic Metabolic Profile (BMP) Normal 136-145 [facility] Comment on above: Result Comment: Canc elled via OM: Order cancelled - Patient discharged Performed By: #### L 500.2500, L100.0100 ####[facility] [address] [place], [address] CBC W/Diff, Automatedon 12-2 Absolute Neut Normal 2.0-7.7 [facility] Comment on above: Result Comment: Canc elled via OM: Order cancelled - Patient discharged Performed By: #### L 500.2500, L100.0100 ####[facility] [address] [place], [address] HCT Normal 40-54 [facility] Comment on above: Result Comment: Canc elled via OM: Order cancelled - Patient discharged Performed By: #### L 500.2500, L100.0100 ####[facility] [address] [place], [address] HGB Normal 13.0-16.5 [facility] Comment on above: Result Comment: Canc elled via OM: Order cancelled - Patient discharged Performed By: #### L 500.2500, L100.0100 ####[facility] [address] [place], [address] MCH Normal 27.0-32.0 [facility] Comment on above: Result Comment: Canc elled via OM: Order cancelled - Patient discharged Performed By: #### L 500.2500, L100.0100 ####[facility] [address] [place], [address] MCHC Normal 32-36 [facility] Comment on above: Result Comment: Canc elled via OM: Order cancelled - Patient discharged Performed By: #### L 500.2500, L100.0100 ####[facility] [address] [place], [address] MCV Normal 80-94 [facility] Comment on above: Result Comment: Canc elled via OM: Order cancelled - Patient discharged Performed By: #### L 500.2500, L100.0100 ####[facility] [address] [place], [address] NEUT% Normal 47-70 [facility] Comment on above: Result Comment: Canc elled via OM: Order cancelled - Patient discharged Performed By: #### L 500.2500, L100.0100 ####[facility] [address] [place], [address] PLT Normal 150-450 [facility] Comment on above: Result Comment: Canc elled via OM: Order cancelled - Patient discharged Performed By: #### L 500.2500, L100.0100 ####[facility] [address] [place], [address] RBC Normal 4.6-6.2 [facility] Comment on above: Result Comment: Canc elled via OM: Order cancelled - Patient discharged Performed By: #### L 500.2500, L100.0100 ####[facility] [address] [place], [address] RDW CV Normal 11.6-14.6 [facility] Comment on above: Result Comment: Canc elled via OM: Order cancelled - Patient discharged Performed By: #### L 500.2500, L100.0100 ####[facility] [address] [place], [address] RDW SD Normal 35.1-43.9 [facility] Comment on above: Result Comment: Canc elled via OM: Order cancelled - Patient discharged Performed By: #### L 500.2500, L100.0100 ####[facility] [address] [place], [address] WBC Normal 4.4-11.0 [facility] Comment on above: Result Comment: Canc elled via OM: Order cancelled - Patient discharged Performed By: #### L 500.2500, L100.0100 ####[facility] [address] [place], [address] Absolute neutrophil countOrd ered By: Sarai Alcantara on 03-02-2024 Neutrophils (Bld) [#/Vol] 2.6 10*3/uL 2.0-7.7 [facility] Basic Metabolic Profile (BMP )on 03-02-2024 BUN/CRE 29.1 RATIO High 10-20 [facility] Comment on above: Performed By: #### L 100.0100, L500.2500 ####[facility] [address] [place], [address] CA,Total 9.2 mg/dL Normal 8.5-10.1 [facility] Comment on above: Performed By: #### L 100.0100, L500.2500 ####[facility] [address] [place], [address] Chloride [Moles/Vol] 106 mmol/L Normal 98-107 [facility] Comment on above: Performed By: #### L 100.0100, L500.2500 ####[facility] [address] [place], [address] CO2 [Moles/Vol] 29.0 mmol/L Normal 21.0-32.0 [facility] Comment on above: Performed By: #### L 100.0100, L500.2500 ####[facility] [address] [place], [address] Creatinine [Mass/Vol] 2.54 mg/dL High 0.70-1.30 [facility] Comment on above: Result Comment: The validity of the calculated GFR GFRAA in patients over70 years has not been determined. Clinical correlation isessential. Performed By: #### L 100.0100, L500.2500 ####[facility] [address] [place], [address] ECRCL 21.53 ml/min Normal [facility] Comment on above: Performed By: #### L 100.0100, L500.2500 ####[facility] [address] [place], [address] EST GFR - AA 31 mL/min Low >60 [facility] Comment on above: Result Comment: Afri can [place] GFR Calc Performed By: #### L 100.0100, L500.2500 ####[facility] [address] [place], [address] GAP 5 Normal 5-15 [facility] Comment on above: Performed By: #### L 100.0100, L500.2500 ####[facility] [address] [place], [address] GFR/1.73 sq M.predicted among non-blacks MDRD (S/P/Bld) [Vol rate/Area] 26 mL/min/{1.73_m2} Low >60 [facility] Comment on above: Result Comment: Non- GFR Calc Performed By: #### L 100.0100, L500.2500 ####[facility] [address] [place], [address] Glucose [Mass/Vol] 156 mg/dL High 74-106 [facility] Comment on above: Result Comment: Fast ing Glucose result greater than or equal to 126 mg/dLsuggests DIABETES MELLITUS per A.D.A. criteria. Performed By: #### L 100.0100, L500.2500 ####[facility] [address] [place], [address] Potassium [Moles/Vol] 4.7 mmol/L Normal 3.5-5.1 [facility] Comment on above: Performed By: #### L 100.0100, L500.2500 ####[facility] [address] [place], [address] Sodium [Moles/Vol] 140 mmol/L Normal 136-145 [facility] Comment on above: Performed By: #### L 100.0100, L500.2500 ####[facility] [address] [place], [address] Urea nitrogen [Mass/Vol] 74 mg/dL High 7-18 [facility] Comment on above: Performed By: #### L 100.0100, L500.2500 ####[facility] [address] [place], [address] Basophil percentageOrdered B y: Sarai Alcantara on 03-02-2024 Basophils/100 WBC (Bld) 0.4 % 0-1 [facility] Bedside Glucoseon 03-02-2024 FINGERSTICK GLU 157 mg/dL High 74-106 [facility] Comment on above: Result Comment: MYKE GEMENT OF PATIENT CARE PER NURSING PROTOCOL Performed By: #### L 501.080 ####[facility] [address] [place], [address] FINGERSTICK GLU 136 mg/dL High 74-106 [facility] Comment on above: Result Comment: MYKE GEMENT OF PATIENT CARE PER NURSING PROTOCOL Performed By: #### L 501.080 ####[facility] [address] [place], [address] FINGERSTICK GLU 157 mg/dL High 74-106 [facility] Comment on above: Result Comment: MYKE GEMENT OF PATIENT CARE PER NURSING PROTOCOL Performed By: #### L 501.080 ####[facility] [address] [place], [address] Blood urea nitrogen (BUN)/cr eatinine ratioOrdered By: Sarai Alcantara on 03-02-2024 Urea nitrogen/Creatinine [Mass ratio] 29.1 mg/mg High 10-20 [facility] CBC W/Diff, Automatedon -2 Absolute Lymph 1.17 X10 3/uL Normal 0.83-4.51 [facility] Comment on above: Performed By: #### L 100.0100, L500.2500 ####[facility] [address] [place], [address] Absolute Neut 2.6 X10 3/uL Normal 2.0-7.7 [facility] Comment on above: Performed By: #### L 100.0100, L500.2500 ####[facility] [address] [place], [address] Basophils/100 WBC (Bld) 0.4 % Normal 0-1 [facility] Comment on above: Performed By: #### L 100.0100, L500.2500 ####[facility] [address] [place], [address] Eosinophils/100 WBC (Bld) 6.3 % High 0-5 [facility] Comment on above: Performed By: #### L 100.0100, L500.2500 ####[facility] [address] [place], [address] Erythrocyte distribution width (RBC) [Ratio] 15.8 % High 11.6-14.6 [facility] Comment on above: Performed By: #### L 100.0100, L500.2500 ####[facility] [address] [place], [address] Hematocrit (Bld) [Volume fraction] 26.5 % Low 40-54 [facility] Comment on above: Performed By: #### L 100.0100, L500.2500 ####[facility] [address] [place], [address] Hemoglobin (Bld) [Mass/Vol] 8.2 g/dL Low 13.0-16.5 [facility] Comment on above: Performed By: #### L 100.0100, L500.2500 ####[facility] [address] [place], [address] IG% 0.700 Normal 0.0-0.9 [facility] Comment on above: Result Comment: IG% - Immature Granulocytes (promyelocytes, myelocytes andmetamyelocytes) > 1% indicates that a LEFT SHIFT is Present. Performed By: #### L 100.0100, L500.2500 ####[facility] [address], [address] Lymphocytes/100 WBC (Bld) 25.5 % Normal 19-41 [facility] Comment on above: Performed By: #### L 100.0100, L500.2500 ####[facility] [address], [address] MCH (RBC) [Entitic mass] 30.7 pg Normal 27.0-32.0 [facility] Comment on above: Performed By: #### L 100.0100, L500.2500 ####[facility] [address] [place], [address] MCHC (RBC) [Mass/Vol] 30.9 g/dL Low 32-36 [facility] Comment on above: Performed By: #### L 100.0100, L500.2500 ####[facility] [address] [place], [address] MCV (RBC) [Entitic vol] 99.3 fL High 80-94 [facility] Comment on above: Performed By: #### L 100.0100, L500.2500 ####[facility] [address] [place], [address] Monocytes/100 WBC (Bld) 10.0 % Normal 0-10 [facility] Comment on above: Performed By: #### L 100.0100, L500.2500 ####[facility] [address] [place], [address] Neutrophils/100 WBC (Bld) 57.1 % Normal 47-70 [facility] Comment on above: Performed By: #### L 100.0100, L500.2500 ####[facility] [address], [address] Nucleated RBC (Bld) [#/Vol] 0 10*3/uL Normal 0-5 [facility] Comment on above: Performed By: #### L 100.0100, L500.2500 ####[facility] [address] [place], [address] Platelet mean volume (Bld) [Entitic vol] 10.2 fL Normal 6.2-12.0 [facility] Comment on above: Performed By: #### L 100.0100, L500.2500 ####[facility] [address] [place], [address] Platelets (Bld) [#/Vol] 142 10*3/uL Low 150-450 [facility] Comment on above: Performed By: #### L 100.0100, L500.2500 ####[facility] [address] [place], [address] RBC (Bld) [#/Vol] 2.67 10*6/uL Low 4.6-6.2 [facility] Comment on above: Performed By: #### L 100.0100, L500.2500 ####[facility] [address] [place], [address] RDW SD 56.8 fl High 35.1-43.9 [facility] Comment on above: Performed By: #### L 100.0100, L500.2500 ####[facility] [address] [place], [address] WBC (Bld) [#/Vol] 4.6 10*3/uL Normal 4.4-11.0 [facility] Comment on above: Performed By: #### L 100.0100, L500.2500 ####[facility] [address] [place], [address] Carbon dioxide measurementOr dered By: Sarai Alcantara on 03-02-2024 CO2 [Moles/Vol] 29.0 mmol/L 21.0-32.0 [facility] Chloride measurementOrdered By: Sarai Alcantara on 03-02-2024 Chloride [Moles/Vol] 106 mmol/L 98-107 [facility] Discharge Instructionon 02-10 Discharge Instruction Normal [facility] Eosinophil percentageOrdered By: Sarai Alcantara on 03-02-2024 Eosinophils/100 WBC (Bld) 6.3 % High 0-5 [facility] Erythrocyte distribution wid th (RBC) [Ratio]Ordered By: Sarai Alcantara on 03-02-2024 Erythrocyte distribution width (RBC) [Entitic vol] 56.8 fL High 35.1-43.9 [facility] Erythrocyte distribution wid th ratioOrdered By: Sarai Alcantara on 03-02-2024 Erythrocyte distribution width (RBC) [Ratio] 15.8 % High 11.6-14.6 [facility] Estimated glomerular filtrat ion rate (GFR) AmericanOrdered By: Sarai Alcantara on 03-02-2024 Estimated GFR (MDRD) Amer 31 mL/min Low >60 [facility] Comment on above: GFR Calc Estimation of creatinine timur aranceOrdered By: Sarai Alacntara on 03-02-2024 Estimated Creatinine Clearance Calc 21.53 ml/min [facility] Glomerular filtration rate ( GFR) estimationOrdered By: Sarai Alcantara on 03-02-2024 Estimated GFR (MDRD) Non-Af Amer 26 mL/min Low >60 [facility] Comment on above: Non- GFR Calc Glucose measurementOrdered B y: Sarai Alcantara on 03-02-2024 Glucose [Mass/Vol] 156 mg/dL High 74-106 [facility] Comment on above: Fasting Glucose resu lt greater than or equal to 126 mg/dL suggests DIABETES MELLITUS per A.D.A. criteria. Glucose measurement at bedsi deOrdered By: Sarai Alcantara on 03-02-2024 Bedside Glucose (Misc Panel) 157 mg/dL High 74-106 [facility] Comment on above: MANAGEMENT OF PATIEN T CARE PER NURSING PROTOCOL Hematocrit Auto (Bld) [Volum e fraction]Ordered By: Sarai Alcantara on 03-02-2024 Hematocrit (Bld) [Volume fraction] 26.5 % Low 40-54 [facility] Hemoglobin measurementOrdere d By: Sarai Alcantara on 03-02-2024 Hemoglobin (Bld) [Mass/Vol] 8.2 g/dL Low 13.0-16.5 [facility] Immature granulocytes/100 WB C Auto (Bld)Ordered By: Sarai Alcantara on 03-02-2024 Immature granulocytes/100 WBC (Bld) 0.700 % 0.0-0.9 [facility] Comment on above: IG% - Immature Granu locytes (promyelocytes, myelocytes and metamyelocytes) > 1% indicates that a LEFT SHIFT is Present. Lymphocytes Auto (Unsp spec) [#/Vol]Ordered By: Sarai Alcantara on 03-02-2024 Lymphocytes (Bld) [#/Vol] 1.17 10*3/uL 0.83-4.51 [facility] Lymphocytes/100 WBC Auto (Un sp spec)Ordered By: Sarai Alcantara on 03-02-2024 Lymphocytes/100 WBC (Bld) 25.5 % 19-41 [facility] MCV (mean corpuscular volume ) determinationOrdered By: Sarai Alcantara on 03-02-2024 MCV (RBC) [Entitic vol] 99.3 fL High 80-94 [facility] Mean corpuscular hemoglobin (MCH) determinationOrdered By: Sarai Alcantara on 03-02-2024 MCH (RBC) [Entitic mass] 30.7 pg 27.0-32.0 [facility] Mean corpuscular hemoglobin concentration (MCHC) determinationOrdered By: Sarai Alcantara on 03-02-2024 MCHC (RBC) [Mass/Vol] 30.9 g/dL Low 32-36 [facility] Mean platelet volume determi nationOrdered By: Sarai Alcantara on 03-02-2024 Platelet mean volume (Bld) [Entitic vol] 10.2 fL 6.2-12.0 [facility] Monocyte percentageOrdered B y: Sarai Alcantara on 03-02-2024 Monocytes/100 WBC (Bld) 10.0 % 0-10 [facility] Neutrophil percentageOrdered By: Sarai Alcantara on 03-02-2024 Neutrophils/100 WBC (Bld) 57.1 % 47-70 [facility] Nucleated red blood cell per centageOrdered By: Sarai Alcantara on 03-02-2024 Nucleated RBC/100 WBC (Bld) [Ratio] 0 % 0-5 [facility] Platelet countOrdered By: Na na Quinton on 03-02-2024 Platelets (Bld) [#/Vol] 142 10*3/uL Low 150-450 [facility] Potassium measurementOrdered By: Sarai Alcantara on 03-02-2024 Potassium [Moles/Vol] 4.7 mmol/L 3.5-5.1 [facility] RBC Auto (Bld) [#/Vol]Ordere d By: Sarai Alcantara on 03-02-2024 RBC (Bld) [#/Vol] 2.67 10*6/uL Low 4.6-6.2 [facility] Serum anion gap measurementO rdered By: Sarai Alcantara on 03-02-2024 Anion gap [Moles/Vol] 5 mmol/L 5-15 [facility] Serum or plasma calcium elmira urement (mass/volume)Ordered By: Sarai Alcantara on 03-02-2024 Calcium [Mass/Vol] 9.2 mg/dL 8.5-10.1 [facility] Serum or plasma creatinine m easurement (mass/volume)Ordered By: Sarai Alcantara on 03-02-2024 Creatinine [Mass/Vol] 2.54 mg/dL High 0.70-1.30 [facility] Comment on above: The validity of the calculated GFR & GFRAA in patients over 70 years has not been determined. Clinical correlation is essential. Serum or plasma urea nitroge n measurement (mass/volume)Ordered By: Sarai Alcantara on 03-02-2024 Urea nitrogen [Mass/Vol] 74 mg/dL High 7-18 [facility] Sodium levelOrdered By: Sarai Alcantara on 03-02-2024 Sodium [Moles/Vol] 140 mmol/L 136-145 [facility] White blood cell (WBC) count Ordered By: Sarai Alcantara on 03-02-2024 WBC (Bld) [#/Vol] 4.6 10*3/uL 4.4-11.0 [facility] AST(SGOT)on 03-01-2024 AST [Catalytic activity/Vol] 15 U/L Normal 15-37 [facility] Comment on above: Performed By: #### L 501.4100, L300.3900, L300.4310 ####[facility] [address] [place], [address] Alanine Aminotransferas (SGP T)on 03-01-2024 ALT [Catalytic activity/Vol] 21 U/L Normal 16-61 [facility] Comment on above: Performed By: #### L 500.2500, L100.0100, L501.4405, L501.9520 ####[facility] [address] [place], [address] Basic Metabolic Profile (BMP )on 03-01-2024 BUN/CRE 25.2 RATIO High 10-20 [facility] Comment on above: Performed By: #### L 500.2500, L100.0100, L501.4405, L501.9520 ####[facility] [address] [place], [address] CA,Total 9.1 mg/dL Normal 8.5-10.1 [facility] Comment on above: Performed By: #### L 500.2500, L100.0100, L501.4405, L501.9520 ####[facility] [address] [place], [address] Chloride [Moles/Vol] 106 mmol/L Normal 98-107 [facility] Comment on above: Performed By: #### L 500.2500, L100.0100, L501.4405, L501.9520 ####[facility] [address] [place], [address] CO2 [Moles/Vol] 29.0 mmol/L Normal 21.0-32.0 [facility] Comment on above: Performed By: #### L 500.2500, L100.0100, L501.4405, L501.9520 ####[facility] [address] [place], [address] Creatinine [Mass/Vol] 2.78 mg/dL High 0.70-1.30 [facility] Comment on above: Result Comment: The validity of the calculated GFR GFRAA in patients over70 years has not been determined. Clinical correlation isessential. Performed By: #### L 500.2500, L100.0100, L501.4405, L501.9520 ####[facility] [address] [place], [address] ECRCL 19.67 ml/min Normal [facility] Comment on above: Performed By: #### L 500.2500, L100.0100, L501.4405, L501.9520 ####[facility] [address] [place], [address] EST GFR - AA 28 mL/min Low >60 [facility] Comment on above: Result Comment: Afri can [place] GFR Calc Performed By: #### L 500.2500, L100.0100, L501.4405, L501.9520 ####[facility] [address] [place], [address] GAP 6 Normal 5-15 [facility] Comment on above: Performed By: #### L 500.2500, L100.0100, L501.4405, L501.9520 ####[facility] [address] [place], [address] GFR/1.73 sq M.predicted among non-blacks MDRD (S/P/Bld) [Vol rate/Area] 23 mL/min/{1.73_m2} Low >60 [facility] Comment on above: Result Comment: Non- GFR Calc Performed By: #### L 500.2500, L100.0100, L501.4405, L501.9520 ####[facility] [address] [place], [address] Glucose [Mass/Vol] 158 mg/dL High 74-106 [facility] Comment on above: Result Comment: Fast ing Glucose result greater than or equal to 126 mg/dLsuggests DIABETES MELLITUS per A.D.A. criteria. Performed By: #### L 500.2500, L100.0100, L501.4405, L501.9520 ####[facility] [address] [place], [address] Potassium [Moles/Vol] 4.5 mmol/L Normal 3.5-5.1 [facility] Comment on above: Performed By: #### L 500.2500, L100.0100, L501.4405, L501.9520 ####[facility] [address] [place], [address] Sodium [Moles/Vol] 140 mmol/L Normal 136-145 [facility] Comment on above: Performed By: #### L 500.2500, L100.0100, L501.4405, L501.9520 ####[facility] [address] [place], [address] Urea nitrogen [Mass/Vol] 70 mg/dL High 7-18 [facility] Comment on above: Performed By: #### L 500.2500, L100.0100, L501.4405, L501.9520 ####[facility] [address] [place], [address] Bedside Glucoseon 03-01-2024 FINGERSTICK GLU 217 mg/dL High 74-106 [facility] Comment on above: Result Comment: MYKE GEMENT OF PATIENT CARE PER NURSING PROTOCOL Performed By: #### L 501.080 ####[facility] [address] [place], [address] FINGERSTICK GLU 160 mg/dL High 74-106 [facility] Comment on above: Result Comment: MYKE GEMENT OF PATIENT CARE PER NURSING PROTOCOL Performed By: #### L 501.080 ####[facility] [address] [place], [address] FINGERSTICK GLU 145 mg/dL High 74-106 [facility] Comment on above: Result Comment: MYKE SAGE OF PATIENT CARE PER NURSING PROTOCOL Performed By: #### L 501.080 ####[facility] [address] [place], [address] CBC W/Diff, Automatedon 12-2 Absolute Lymph 1.11 X10 3/uL Normal 0.83-4.51 [facility] Comment on above: Performed By: #### L 500.2500, L100.0100, L501.4405, L501.9520 ####[facility] [address] [place], [address] Absolute Neut 2.1 X10 3/uL Normal 2.0-7.7 [facility] Comment on above: Performed By: #### L 500.2500, L100.0100, L501.4405, L501.9520 ####[facility] [address] [place], [address] Basophils/100 WBC (Bld) 0.8 % Normal 0-1 [facility] Comment on above: Performed By: #### L 500.2500, L100.0100, L501.4405, L501.9520 ####[facility] [address] [place], [address] Eosinophils/100 WBC (Bld) 7.0 % High 0-5 [facility] Comment on above: Performed By: #### L 500.2500, L100.0100, L501.4405, L501.9520 ####[facility] [address] [place], [address] Erythrocyte distribution width (RBC) [Ratio] 16.1 % High 11.6-14.6 [facility] Comment on above: Performed By: #### L 500.2500, L100.0100, L501.4405, L501.9520 ####[facility] [address] [place], [address] Hematocrit (Bld) [Volume fraction] 24.8 % Low 40-54 [facility] Comment on above: Performed By: #### L 500.2500, L100.0100, L501.4405, L501.9520 ####[facility] [address] [place], [address] Hemoglobin (Bld) [Mass/Vol] 8.0 g/dL Low 13.0-16.5 [facility] Comment on above: Performed By: #### L 500.2500, L100.0100, L501.4405, L501.9520 ####[facility] [address] [place], [address] IG% 1.000 High 0.0-0.9 [facility] Comment on above: Result Comment: IG% - Immature Granulocytes (promyelocytes, myelocytes andmetamyelocytes) > 1% indicates that a LEFT SHIFT is Present. Performed By: #### L 500.2500, L100.0100, L501.4405, L501.9520 ####[facility] [address] [place], [address] Lymphocytes/100 WBC (Bld) 27.8 % Normal 19-41 [facility] Comment on above: Performed By: #### L 500.2500, L100.0100, L501.4405, L501.9520 ####[facility] [address] [place], [address] MCH (RBC) [Entitic mass] 31.6 pg Normal 27.0-32.0 [facility] Comment on above: Performed By: #### L 500.2500, L100.0100, L501.4405, L501.9520 ####[facility] [address] [place], [address] MCHC (RBC) [Mass/Vol] 32.3 g/dL Normal 32-36 [facility] Comment on above: Performed By: #### L 500.2500, L100.0100, L501.4405, L501.9520 ####[facility] [address] [place], [address] MCV (RBC) [Entitic vol] 98.0 fL High 80-94 [facility] Comment on above: Performed By: #### L 500.2500, L100.0100, L501.4405, L501.9520 ####[facility] [address] [place], [address] Monocytes/100 WBC (Bld) 12.0 % High 0-10 [facility] Comment on above: Performed By: #### L 500.2500, L100.0100, L501.4405, L501.9520 ####[facility] [address] [place], [address] Neutrophils/100 WBC (Bld) 51.4 % Normal 47-70 [facility] Comment on above: Performed By: #### L 500.2500, L100.0100, L501.4405, L501.9520 ####[facility] [address] [place], [address] Nucleated RBC (Bld) [#/Vol] 0 10*3/uL Normal 0-5 [facility] Comment on above: Performed By: #### L 500.2500, L100.0100, L501.4405, L501.9520 ####[facility] [address] [place], [address] Platelet mean volume (Bld) [Entitic vol] 10.4 fL Normal 6.2-12.0 [facility] Comment on above: Performed By: #### L 500.2500, L100.0100, L501.4405, L501.9520 ####[facility] [address] [place], [address] Platelets (Bld) [#/Vol] 134 10*3/uL Low 150-450 [facility] Comment on above: Performed By: #### L 500.2500, L100.0100, L501.4405, L501.9520 ####[facility] [address] [place], [address] RBC (Bld) [#/Vol] 2.53 10*6/uL Low 4.6-6.2 [facility] Comment on above: Performed By: #### L 500.2500, L100.0100, L501.4405, L501.9520 ####[facility] [address] [place], [address] RDW SD 57.1 fl High 35.1-43.9 [facility] Comment on above: Performed By: #### L 500.2500, L100.0100, L501.4405, L501.9520 ####[facility] [address] [place], [address] WBC (Bld) [#/Vol] 4.0 10*3/uL Low 4.4-11.0 [facility] Comment on above: Performed By: #### L 500.2500, L100.0100, L501.4405, L501.9520 ####[facility] [address] [place], [address] EGD Reporton 03-01-2024 EGD Report Normal [facility] International normalized rat io (INR) calculationOrdered By: Eyal Meraz on 03-01-2024 INR Coag (Bld) [Relative time] 1.2 {INR} [facility] Laboratory - Chemistry and C hemistry - challengeOrdered By: Eyal Meraz on 03-01-2024 AST [Catalytic activity/Vol] 15 U/L 15-37 [facility] MR/POSTOP.ANEon 03-01-2024 MR/POSTOP.ANE Normal [facility] MR/[id number] 03-01-2024 MR/POSTOPAN2 Normal [facility] Partial Thromboplast Timeon 03-01-2024 aPTT Coag (Bld) [Time] 29.4 s Normal 24.1-36.2 [facility] Comment on above: Performed By: #### L 501.4100, L300.3900, L300.4310 ####[facility] [address] [place], [address] Prothrombin Time w/INRon INR Coag (PPP) [Relative time] 1.2 {INR} Normal [facility] Comment on above: Performed By: #### L 501.4100, L300.3900, L300.4310 ####[facility] [address] [place], [address] PT Coag (PPP) [Time] 15.4 s High 11.7-14.9 [facility] Comment on above: Performed By: #### L 501.4100, L300.3900, L300.4310 ####[facility] [address] [place], [address] Prothrombin timeOrdered By: Eyal Meraz on 03-01-2024 PT Coag (PPP) [Time] 15.4 s High 11.7-14.9 [facility] Serum or plasma alanine duque otransferase (ALT) measurementOrdered By: Eyal Meraz on 03-01-2024 ALT [Catalytic activity/Vol] 21 U/L 16-61 [facility] TSH QnOrdered By: Eyal persaud on 03-01-2024 Thyroid Stimulating Hormone (TSH) 1.620 uIU/mL 0.358-3.740 [facility] Thyroid Stim Hormone (TSH)on 03-01-2024 TSH 1.620 uIU/mL Normal 0.358-3.740 [facility] Comment on above: Performed By: #### L 500.2500, L100.0100, L501.4405, L501.9520 ####[facility] [address] [place], [address] aPTT Coag (PPP) [Time]Ordere d By: Eyal Meraz on 03-01-2024 aPTT Coag (Bld) [Time] 29.4 s 24.1-36.2 [facility] Basic Metabolic Profile (BMP )on 02-29-2024 BUN/CRE 22.6 RATIO High 12-29 [facility] Comment on above: Performed By: #### L 100.0100, L500.2500 ####[facility] [address] [place], [address] CA,Total 9.1 mg/dL Normal 8.5-10.1 [facility] Comment on above: Performed By: #### L 100.0100, L500.2500 ####[facility] [address] [place], [address] Chloride [Moles/Vol] 104 mmol/L Normal 98-107 [facility] Comment on above: Performed By: #### L 100.0100, L500.2500 ####[facility] [address] [place], [address] CO2 [Moles/Vol] 28.0 mmol/L Normal 21.0-32.0 [facility] Comment on above: Performed By: #### L 100.0100, L500.2500 ####[facility] [address] [place], [address] Creatinine [Mass/Vol] 2.61 mg/dL High 0.70-1.30 [facility] Comment on above: Result Comment: The validity of the calculated GFR GFRAA in patients over70 years has not been determined. Clinical correlation isessential. Performed By: #### L 100.0100, L500.2500 ####[facility] [address] [place], [address] ECRCL 20.94 ml/min Normal [facility] Comment on above: Performed By: #### L 100.0100, L500.2500 ####[facility] [address] [place], [address] EST GFR - AA 30 mL/min Low >60 [facility] Comment on above: Result Comment: Afri can [place] GFR Calc Performed By: #### L 100.0100, L500.2500 ####[facility] [address] [place], [address] GAP 7 Normal 5-15 [facility] Comment on above: Performed By: #### L 100.0100, L500.2500 ####[facility] [address] [place], [address] GFR/1.73 sq M.predicted among non-blacks MDRD (S/P/Bld) [Vol rate/Area] 25 mL/min/{1.73_m2} Low >60 [facility] Comment on above: Result Comment: Non- GFR Calc Performed By: #### L 100.0100, L500.2500 ####[facility] [address] [place], [address] Glucose [Mass/Vol] 155 mg/dL High 74-106 [facility] Comment on above: Result Comment: Fast ing Glucose result greater than or equal to 126 mg/dLsuggests DIABETES MELLITUS per A.D.A. criteria. Performed By: #### L 100.0100, L500.2500 ####[facility] [address] [place], [address] Potassium [Moles/Vol] 4.3 mmol/L Normal 3.5-5.1 [facility] Comment on above: Performed By: #### L 100.0100, L500.2500 ####[facility] [address] [place], [address] Sodium [Moles/Vol] 139 mmol/L Normal 136-145 [facility] Comment on above: Performed By: #### L 100.0100, L500.2500 ####[facility] [address] [place], [address] Urea nitrogen [Mass/Vol] 59 mg/dL High 7-18 [facility] Comment on above: Performed By: #### L 100.0100, L500.2500 ####[facility] [address] [place], [address] Bedside Glucoseon 02-29-2024 FINGERSTICK GLU 167 mg/dL High 74-106 [facility] Comment on above: Result Comment: MYKE GEMENT OF PATIENT CARE PER NURSING PROTOCOL Performed By: #### L 501.080 ####[facility] [address] [place], [address] FINGERSTICK GLU 180 mg/dL High 74-106 [facility] Comment on above: Result Comment: MYKE GEMENT OF PATIENT CARE PER NURSING PROTOCOL Performed By: #### L 501.080 ####[facility] [address] [place], [address] FINGERSTICK GLU 240 mg/dL High 74-106 [facility] Comment on above: Result Comment: MYKE GEMENT OF PATIENT CARE PER NURSING PROTOCOL Performed By: #### L 501.080 ####[facility] [address] [place], [address] FINGERSTICK GLU 144 mg/dL High 74-106 [facility] Comment on above: Result Comment: MYKE GEMENT OF PATIENT CARE PER NURSING PROTOCOL Performed By: #### L 501.080 ####[facility] [address] [place], [address] CBC W/Diff, Automatedon 12-2 0-2023 Absolute Lymph 1.04 X10 3/uL Normal 0.83-4.51 [facility] Comment on above: Performed By: #### L 100.0100, L500.2500 ####[facility] [address] [place], [address] Absolute Neut 2.5 X10 3/uL Normal 2.0-7.7 [facility] Comment on above: Performed By: #### L 100.0100, L500.2500 ####[facility] [address] [place], [address] Basophils/100 WBC (Bld) 0.9 % Normal 0-1 [facility] Comment on above: Performed By: #### L 100.0100, L500.2500 ####[facility] [address] [place], [address] Eosinophils/100 WBC (Bld) 5.7 % High 0-5 [facility] Comment on above: Performed By: #### L 100.0100, L500.2500 ####[facility] [address] [place], [address] Erythrocyte distribution width (RBC) [Ratio] 17.0 % High 11.6-14.6 [facility] Comment on above: Performed By: #### L 100.0100, L500.2500 ####[facility] [address] [place], [address] Hematocrit (Bld) [Volume fraction] 23.5 % Low 40-54 [facility] Comment on above: Performed By: #### L 100.0100, L500.2500 ####[facility] [address] [place], [address] Hemoglobin (Bld) [Mass/Vol] 7.6 g/dL Low 13.0-16.5 [facility] Comment on above: Performed By: #### L 100.0100, L500.2500 ####[facility] [address] [place], [address] IG% 0.700 Normal 0.0-0.9 [facility] Comment on above: Result Comment: IG% - Immature Granulocytes (promyelocytes, myelocytes andmetamyelocytes) > 1% indicates that a LEFT SHIFT is Present. Performed By: #### L 100.0100, L500.2500 ####[facility] [address] [place], [address] Lymphocytes/100 WBC (Bld) 23.8 % Normal 19-41 [facility] Comment on above: Performed By: #### L 100.0100, L500.2500 ####[facility] [address] [place], [address] MCH (RBC) [Entitic mass] 31.8 pg Normal 27.0-32.0 [facility] Comment on above: Performed By: #### L 100.0100, L500.2500 ####[facility] [address] [place], [address] MCHC (RBC) [Mass/Vol] 32.3 g/dL Normal 32-36 [facility] Comment on above: Performed By: #### L 100.0100, L500.2500 ####[facility] [address] [place], [address] MCV (RBC) [Entitic vol] 98.3 fL High 80-94 [facility] Comment on above: Performed By: #### L 100.0100, L500.2500 ####[facility] [address] [place], [address] Monocytes/100 WBC (Bld) 10.8 % High 0-10 [facility] Comment on above: Performed By: #### L 100.0100, L500.2500 ####[facility] [address] [place], [address] Neutrophils/100 WBC (Bld) 58.1 % Normal 47-70 [facility] Comment on above: Performed By: #### L 100.0100, L500.2500 ####[facility] [address] [place], [address] Nucleated RBC (Bld) [#/Vol] 0 10*3/uL Normal 0-5 [facility] Comment on above: Performed By: #### L 100.0100, L500.2500 ####[facility] [address] [place], [address] Platelet mean volume (Bld) [Entitic vol] 10.5 fL Normal 6.2-12.0 [facility] Comment on above: Performed By: #### L 100.0100, L500.2500 ####[facility] [address] [place], [address] Platelets (Bld) [#/Vol] 135 10*3/uL Low 150-450 [facility] Comment on above: Performed By: #### L 100.0100, L500.2500 ####[facility] [address] [place], [address] RBC (Bld) [#/Vol] 2.39 10*6/uL Low 4.6-6.2 [facility] Comment on above: Performed By: #### L 100.0100, L500.2500 ####[facility] [address] [place], [address] RDW SD 59.0 fl High 35.1-43.9 [facility] Comment on above: Performed By: #### L 100.0100, L500.2500 ####[facility] [address] [place], [address] WBC (Bld) [#/Vol] 4.4 10*3/uL Normal 4.4-11.0 [facility] Comment on above: Performed By: #### L 100.0100, L500.2500 ####[facility] [address] [place], [address] MR/CON.PCM.GIon 02-29-2024 MR/CON.PCM.GI Normal [facility] 12 Lead EKGon 02-28-2024 12 Lead EKG Normal [facility] BNP (brain natriuretic pepti de measurement)Ordered By: Yuridia Combs on 02-28-2024 Natriuretic peptide B (Bld) [Mass/Vol] 87.6 pg/mL 0-100 [facility] BNP,B-Type NATRIURETIC PEPTI Nico 02-28-2024 Natriuretic peptide B (Bld) [Mass/Vol] 87.6 pg/mL Normal 0-100 [facility] Comment on above: Performed By: #### L 503.6620 ####[facility] [address] [place], [address] BRCon 02-28-2024 RC Normal [facility] Comment on above: Result Comment: [id number] AN RC TRANSFUSED 02/28/24 1721 Performed By: #### B RC ####[facility] [address] [place], [address] Basic Metabolic Profile (BMP )on 02-28-2024 BUN/CRE 20.6 RATIO High - [facility] Comment on above: Order Comment: 'TROP ' Serial specimen #1, #2 or #3: 1 Performed By: #### L 100.0100, L500.2500, L501.4020 ####[facility] [address] [place], [address] CA,Total 9.0 mg/dL Normal 8.5-10.1 [facility] Comment on above: Order Comment: 'TROP ' Serial specimen #1, #2 or #3: 1 Performed By: #### L 100.0100, L500.2500, L501.4020 ####[facility] [address] [place], [address] Chloride [Moles/Vol] 104 mmol/L Normal 98-107 [facility] Comment on above: Order Comment: 'TROP ' Serial specimen #1, #2 or #3: 1 Performed By: #### L 100.0100, L500.2500, L501.4020 ####[facility] [address] [place], [address] CO2 [Moles/Vol] 28.0 mmol/L Normal 21.0-32.0 [facility] Comment on above: Order Comment: 'TROP ' Serial specimen #1, #2 or #3: 1 Performed By: #### L 100.0100, L500.2500, L501.4020 ####[facility] [address] [place], [address] Creatinine [Mass/Vol] 2.96 mg/dL High 0.70-1.30 [facility] Comment on above: Order Comment: 'TROP ' Serial specimen #1, #2 or #3: 1 Result Comment: The validity of the calculated GFR GFRAA in patients over70 years has not been determined. Clinical correlation isessential. Performed By: #### L 100.0100, L500.2500, L501.4020 ####[facility] [address] [place], [address] ECRCL 18.85 ml/min Normal [facility] Comment on above: Order Comment: 'TROP ' Serial specimen #1, #2 or #3: 1 Performed By: #### L 100.0100, L500.2500, L501.4020 ####[facility] [address] [place], [address] EST GFR - AA 26 mL/min Low >60 [facility] Comment on above: Order Comment: 'TROP ' Serial specimen #1, #2 or #3: 1 Result Comment: Afri can [place] GFR Calc Performed By: #### L 100.0100, L500.2500, L501.4020 ####[facility] [address] [place], [address] GAP 7 Normal 5-15 [facility] Comment on above: Order Comment: 'TROP ' Serial specimen #1, #2 or #3: 1 Performed By: #### L 100.0100, L500.2500, L501.4020 ####[facility] [address] [place], [address] GFR/1.73 sq M.predicted among non-blacks MDRD (S/P/Bld) [Vol rate/Area] 22 mL/min/{1.73_m2} Low >60 [facility] Comment on above: Order Comment: 'TROP ' Serial specimen #1, #2 or #3: 1 Result Comment: Non- GFR Calc Performed By: #### L 100.0100, L500.2500, L501.4020 ####[facility] [address] [place], [address] Glucose [Mass/Vol] 317 mg/dL High 74-106 [facility] Comment on above: Order Comment: 'TROP ' Serial specimen #1, #2 or #3: 1 Result Comment: Gluc ose result greater than or equal to 200 mg/dLsuggests DIABETES MELLITUS per A.D.A. criteria. Performed By: #### L 100.0100, L500.2500, L501.4020 ####[facility] [address] [place], [address] Potassium [Moles/Vol] 4.2 mmol/L Normal 3.5-5.1 [facility] Comment on above: Order Comment: 'TROP ' Serial specimen #1, #2 or #3: 1 Performed By: #### L 100.0100, L500.2500, L501.4020 ####[facility] [address] [place], [address] Sodium [Moles/Vol] 139 mmol/L Normal 136-145 [facility] Comment on above: Order Comment: 'TROP ' Serial specimen #1, #2 or #3: 1 Performed By: #### L 100.0100, L500.2500, L501.4020 ####[facility] [address] [place], [address] Urea nitrogen [Mass/Vol] 61 mg/dL High 7-18 [facility] Comment on above: Order Comment: 'TROP ' Serial specimen #1, #2 or #3: 1 Performed By: #### L 100.0100, L500.2500, L501.4020 ####[facility] [address] [place], [address] Bedside Glucoseon 02-27-2023 FINGERSTICK GLU 245 mg/dL High 74-106 [facility] Comment on above: Result Comment: MYKE SAGE OF PATIENT CARE PER NURSING PROTOCOL Performed By: #### L 501.080 ####[facility] [address] [place], [address] CBC W/Diff, Automatedon 02-09 Absolute Lymph 0.78 X10 3/uL Low 0.83-4.51 [facility] Comment on above: Performed By: #### L 100.0100, L500.2500, L501.4020 ####[facility] [address] [place], [address] Absolute Neut 2.2 X10 3/uL Normal 2.0-7.7 [facility] Comment on above: Performed By: #### L 100.0100, L500.2500, L501.4020 ####[facility] [address] [place], [address] Basophils/100 WBC (Bld) 0.6 % Normal 0-1 [facility] Comment on above: Performed By: #### L 100.0100, L500.2500, L501.4020 ####[facility] [address] [place], [address] Eosinophils/100 WBC (Bld) 4.7 % Normal 0-5 [facility] Comment on above: Performed By: #### L 100.0100, L500.2500, L501.4020 ####[facility] [address], [address] Erythrocyte distribution width (RBC) [Ratio] 15.9 % High 11.6-14.6 [facility] Comment on above: Performed By: #### L 100.0100, L500.2500, L501.4020 ####[facility] [address], [address] Hematocrit (Bld) [Volume fraction] 22.2 % Low 40-54 [facility] Comment on above: Performed By: #### L 100.0100, L500.2500, L501.4020 ####[facility] [address] [place], [address] Hemoglobin (Bld) [Mass/Vol] 6.9 g/dL Low 13.0-16.5 [facility] Comment on above: Performed By: #### L 100.0100, L500.2500, L501.4020 ####[facility] [address] [place], [address] IG% 1.100 High 0.0-0.9 [facility] Comment on above: Result Comment: IG% - Immature Granulocytes (promyelocytes, myelocytes andmetamyelocytes) > 1% indicates that a LEFT SHIFT is Present. Performed By: #### L 100.0100, L500.2500, L501.4020 ####[facility] [address] [place], [address] Lymphocytes/100 WBC (Bld) 21.8 % Normal 19-41 [facility] Comment on above: Performed By: #### L 100.0100, L500.2500, L501.4020 ####[facility] [address], [address] MCH (RBC) [Entitic mass] 31.9 pg Normal 27.0-32.0 [facility] Comment on above: Performed By: #### L 100.0100, L500.2500, L501.4020 ####[facility] [address] [place], [address] MCHC (RBC) [Mass/Vol] 31.1 g/dL Low 32-36 [facility] Comment on above: Performed By: #### L 100.0100, L500.2500, L501.4020 ####[facility] [address] [place], [address] MCV (RBC) [Entitic vol] 102.8 fL High 80-94 [facility] Comment on above: Performed By: #### L 100.0100, L500.2500, L501.4020 ####[facility] [address] [place], [address] Monocytes/100 WBC (Bld) 10.1 % High 0-10 [facility] Comment on above: Performed By: #### L 100.0100, L500.2500, L501.4020 ####[facility] [address] [place], [address] Neutrophils/100 WBC (Bld) 61.7 % Normal 47-70 [facility] Comment on above: Performed By: #### L 100.0100, L500.2500, L501.4020 ####[facility] [address] [place], [address] Nucleated RBC (Bld) [#/Vol] 0 10*3/uL Normal 0-5 [facility] Comment on above: Performed By: #### L 100.0100, L500.2500, L501.4020 ####[facility] [address] [place], [address] Platelet mean volume (Bld) [Entitic vol] 10.1 fL Normal 6.2-12.0 [facility] Comment on above: Performed By: #### L 100.0100, L500.2500, L501.4020 ####[facility] [address] [place], [address] Platelets (Bld) [#/Vol] 135 10*3/uL Low 150-450 [facility] Comment on above: Performed By: #### L 100.0100, L500.2500, L501.4020 ####[facility] [address] [place], [address] RBC (Bld) [#/Vol] 2.16 10*6/uL Low 4.6-6.2 [facility] Comment on above: Performed By: #### L 100.0100, L500.2500, L501.4020 ####[facility] [address] [place], [address] RDW SD 58.4 fl High 35.1-43.9 [facility] Comment on above: Performed By: #### L 100.0100, L500.2500, L501.4020 ####[facility] [address] [place], [address] WBC (Bld) [#/Vol] 3.6 10*3/uL Low 4.4-11.0 [facility] Comment on above: Performed By: #### L 100.0100, L500.2500, L501.4020 ####[facility] [address] [place], [address] Chest 1 View (Portable)on Chest 1 View (Portable) Normal [facility] Emergency Department Summary on 02-28-2024 Emergency Department Summary Normal [facility] Emergency Department Summary Normal [facility] H AND P Exam - Hospitaliston 02-28-2024 H&P Exam - Hospitalist Normal [facility] Influenza virus A and B and SARS-CoV-2 (COVID-19) and Respiratory syncytial virus RNAOrdered By: Yuridia Combs on 02-28-2024 SARS-CoV-2 (COVID-19) RNA JOSH+probe Ql (Unsp spec) [facility] L501.4020on 02-28-2024 TROPONIN-I HS 31 pg/mL Normal 3.0-78.0 [facility] Comment on above: Order Comment: 'TROP ' Serial specimen #1, #2 or #3: 1 Result Comment: Plea se Note: New Test Units and Gender Specific Reference Ranges. For more information see Policy Stat Procedure [place] High Sensitivity Troponin (TNIH) and attachments. Performed By: #### L 100.0100, L500.2500, L501.4020 ####[facility] [address] [place], [address] Lower GI hemoglobin IA Ql (S tl)Ordered By: Yuridia Combs on 02-28-2024 Stool Occult Blood (CLARY) [facility] M100.678on 02-28-2024 M100.678 Pending SARS-CoV-2 (COVID 19) Negative INFLUENZA A Negative INFLUENZA B Negative RSV PCR Negative Normal [facility] Comment on above: Performed By: #### M 100.678 ####[facility] [address] [place], [place], [address] Stool Occult Blood iFOBon STOB Negative Normal [facility] Comment on above: Performed By: #### M 100.7900 ####[facility] [address] [place], [address] Troponin IOrdered By: Yuridia pereira on 02-28-2024 Troponin I High Sensitivity 31 pg/mL 3.0-78.0 [facility] Comment on above: Please Note: New Arti t Units and Gender Specific Reference Ranges. For more information see Policy Stat Procedure [place] High Sensitivity Troponin (TNIH) and attachments. Type AND Screenon 02-28-2024 Ab SCREEN GEL Negative Normal [facility] Comment on above: Order Comment: A Performed By: #### B TS ####[facility] [address] [place], [address] Basic Metabolic Profile (BMP )on 02-21-2024 BUN/CRE 25.2 RATIO High 10-20 [facility] Comment on above: Performed By: #### L 100.0100, L500.2500 ####[facility] [address] [place], [address] CA,Total 9.9 mg/dL Normal 8.5-10.1 [facility] Comment on above: Performed By: #### L 100.0100, L500.2500 ####[facility] [address] [place], [address] Chloride [Moles/Vol] 105 mmol/L Normal 98-107 [facility] Comment on above: Performed By: #### L 100.0100, L500.2500 ####[facility] [address] [place], [address] CO2 [Moles/Vol] 30.0 mmol/L Normal 21.0-32.0 [facility] Comment on above: Performed By: #### L 100.0100, L500.2500 ####[facility] [address] [place], [address] Creatinine [Mass/Vol] 2.50 mg/dL High 0.70-1.30 [facility] Comment on above: Result Comment: The validity of the calculated GFR GFRAA in patients over70 years has not been determined. Clinical correlation isessential. Performed By: #### L 100.0100, L500.2500 ####[facility] [address] [place], [address] EST GFR - AA 32 mL/min Low >60 [facility] Comment on above: Result Comment: Afri can [place] GFR Calc Performed By: #### L 100.0100, L500.2500 ####[facility] [address] [place], [address] GAP 6 Normal 5-15 [facility] Comment on above: Performed By: #### L 100.0100, L500.2500 ####[facility] [address] [place], [address] GFR/1.73 sq M.predicted among non-blacks MDRD (S/P/Bld) [Vol rate/Area] 26 mL/min/{1.73_m2} Low >60 [facility] Comment on above: Result Comment: Non- GFR Calc Performed By: #### L 100.0100, L500.2500 ####[facility] [address] [place], [address] Glucose [Mass/Vol] 181 mg/dL High 74-106 [facility] Comment on above: Result Comment: Fast ing Glucose result greater than or equal to 126 mg/dLsuggests DIABETES MELLITUS per A.D.A. criteria. Performed By: #### L 100.0100, L500.2500 ####[facility] [address] [place], [address] Potassium [Moles/Vol] 5.1 mmol/L Normal 3.5-5.1 [facility] Comment on above: Performed By: #### L 100.0100, L500.2500 ####[facility] [address] [place], [address] Sodium [Moles/Vol] 141 mmol/L Normal 136-145 [facility] Comment on above: Performed By: #### L 100.0100, L500.2500 ####[facility] [address] [place], [address] Urea nitrogen [Mass/Vol] 63 mg/dL High 7-18 [facility] Comment on above: Performed By: #### L 100.0100, L500.2500 ####[facility] [address] [place], [address] CBC W/Diff, Automatedon 12- Absolute Lymph 1.21 X10 3/uL Normal 0.83-4.51 [facility] Comment on above: Performed By: #### L 100.0100, L500.2500 ####[facility] [address] [place], [address] Absolute Neut 4.8 X10 3/uL Normal 2.0-7.7 [facility] Comment on above: Performed By: #### L 100.0100, L500.2500 ####[facility] [address] [place], [address] Basophils/100 WBC (Bld) 0.4 % Normal 0-1 [facility] Comment on above: Performed By: #### L 100.0100, L500.2500 ####[facility] [address] [place], [address] Eosinophils/100 WBC (Bld) 3.3 % Normal 0-5 [facility] Comment on above: Performed By: #### L 100.0100, L500.2500 ####[facility] [address] [place], [address] Erythrocyte distribution width (RBC) [Ratio] 13.9 % Normal 11.6-14.6 [facility] Comment on above: Performed By: #### L 100.0100, L500.2500 ####[facility] [address] [place], [address] Hematocrit (Bld) [Volume fraction] 23.2 % Low 40-54 [facility] Comment on above: Performed By: #### L 100.0100, L500.2500 ####[facility] [address] [place], [address] Hemoglobin (Bld) [Mass/Vol] 7.1 g/dL Low 13.0-16.5 [facility] Comment on above: Performed By: #### L 100.0100, L500.2500 ####[facility] [address] [place], [address] IG% 0.300 Normal 0.0-0.9 [facility] Comment on above: Result Comment: IG% - Immature Granulocytes (promyelocytes, myelocytes andmetamyelocytes) > 1% indicates that a LEFT SHIFT is Present. Performed By: #### L 100.0100, L500.2500 ####[facility] [address] [place], [address] Lymphocytes/100 WBC (Bld) 18.1 % Low 19-41 [facility] Comment on above: Performed By: #### L 100.0100, L500.2500 ####[facility] [address] [place], [address] MCH (RBC) [Entitic mass] 30.9 pg Normal 27.0-32.0 [facility] Comment on above: Performed By: #### L 100.0100, L500.2500 ####[facility] [address] [place], [address] MCHC (RBC) [Mass/Vol] 30.6 g/dL Low 32-36 [facility] Comment on above: Performed By: #### L 100.0100, L500.2500 ####[facility] [address] [place], [address] MCV (RBC) [Entitic vol] 100.9 fL High 80-94 [facility] Comment on above: Performed By: #### L 100.0100, L500.2500 ####[facility] [address] [place], [address] Monocytes/100 WBC (Bld) 6.1 % Normal 0-10 [facility] Comment on above: Performed By: #### L 100.0100, L500.2500 ####[facility] [address] [place], [address] Neutrophils/100 WBC (Bld) 71.8 % High 47-70 [facility] Comment on above: Performed By: #### L 100.0100, L500.2500 ####[facility] [address] [place], [address] Nucleated RBC (Bld) [#/Vol] 0 10*3/uL Normal 0-5 [facility] Comment on above: Performed By: #### L 100.0100, L500.2500 ####[facility] [address] [place], [address] Platelet mean volume (Bld) [Entitic vol] 11.2 fL Normal 6.2-12.0 [facility] Comment on above: Performed By: #### L 100.0100, L500.2500 ####[facility] [address] [place], [address] Platelets (Bld) [#/Vol] 124 10*3/uL Low 150-450 [facility] Comment on above: Performed By: #### L 100.0100, L500.2500 ####[facility] [address] [place], [address] RBC (Bld) [#/Vol] 2.30 10*6/uL Low 4.6-6.2 [facility] Comment on above: Performed By: #### L 100.0100, L500.2500 ####[facility] [address] [place], [address] RDW SD 51.2 fl High 35.1-43.9 [facility] Comment on above: Performed By: #### L 100.0100, L500.2500 ####[facility] [address] [place], [address] WBC (Bld) [#/Vol] 6.7 10*3/uL Normal 4.4-11.0 [facility] Comment on above: Performed By: #### L 100.0100, L500.2500 ####[facility] [address] [place], [address] CBC W/Diff, Automatedon 12-0 2-2023 Absolute Lymph 0.79 X10 3/uL Low 0.83-4.51 [facility] Comment on above: Order Comment: Order Date: 02/08/24Order Info: 4-1 - CBCD Performed By: #### L 100.0100, L501.9520 ####[facility] [address] [place], [address] Absolute Neut 7.0 X10 3/uL Normal 2.0-7.7 [facility] Comment on above: Order Comment: Order Date: 02/08/24Order Info: 4-1 - CBCD Performed By: #### L 100.0100, L501.9520 ####[facility] [address] [place], [address] Basophils/100 WBC (Bld) 0.1 % Normal 0-1 [facility] Comment on above: Order Comment: Order Date: 02/08/24Order Info: 183-1 - CBCD Performed By: #### L 100.0100, L501.9520 ####[facility] [address] [place], [address] Eosinophils/100 WBC (Bld) 1.5 % Normal 0-5 [facility] Comment on above: Order Comment: Order Date: 02/08/24Order Info: 0184-1 - CBCD Performed By: #### L 100.0100, L501.9520 ####[facility] [address] [place], [address] Erythrocyte distribution width (RBC) [Ratio] 15.3 % High 11.6-14.6 [facility] Comment on above: Order Comment: Order Date: 02/08/24Order Info: 0184-1 - CBCD Performed By: #### L 100.0100, L501.9520 ####[facility] [address] [place], [address] Hematocrit (Bld) [Volume fraction] 28.4 % Low 40-54 [facility] Comment on above: Order Comment: Order Date: 02/08/24Order Info: 183- - CBCD Performed By: #### L 100.0100, L501.9520 ####[facility] [address] [place], [address] Hemoglobin (Bld) [Mass/Vol] 8.6 g/dL Low 13.0-16.5 [facility] Comment on above: Order Comment: Order Date: 02/08/24Order Info: 183- - CBCD Performed By: #### L 100.0100, L501.9520 ####[facility] [address] [place], [address] IG% 3.400 High 0.0-0.9 [facility] Comment on above: Order Comment: Order Date: 02/08/24Order Info: 183- - CBCD Result Comment: IG% - Immature Granulocytes (promyelocytes, myelocytes andmetamyelocytes) > 1% indicates that a LEFT SHIFT is Present. Performed By: #### L 100.0100, L501.9520 ####[facility] [address] [place], [address] Lymphocytes/100 WBC (Bld) 9.2 % Low 19-41 [facility] Comment on above: Order Comment: Order Date: 02/08/24Order Info: 018- - CBCD Performed By: #### L 100.0100, L501.9520 ####[facility] [address] [place], [address] MCH (RBC) [Entitic mass] 30.8 pg Normal 27.0-32.0 [facility] Comment on above: Order Comment: Order Date: 02/08/24Order Info: 4- - CBCD Performed By: #### L 100.0100, L501.9520 ####[facility] [address] [place], [address] MCHC (RBC) [Mass/Vol] 30.3 g/dL Low 32-36 [facility] Comment on above: Order Comment: Order Date: 02/08/24Order Info: 4-1 - CBCD Performed By: #### L 100.0100, L501.9520 ####[facility] [address] [place], [address] MCV (RBC) [Entitic vol] 101.8 fL High 80-94 [facility] Comment on above: Order Comment: Order Date: 02/08/24Order Info: 183- - CBCD Performed By: #### L 100.0100, L501.9520 ####[facility] [address] [place], [address] Monocytes/100 WBC (Bld) 3.6 % Normal 0-10 [facility] Comment on above: Order Comment: Order Date: 02/08/24Order Info: 183- - CBCD Performed By: #### L 100.0100, L501.9520 ####[facility] [address] [place], [address] Neutrophils/100 WBC (Bld) 82.2 % High 47-70 [facility] Comment on above: Order Comment: Order Date: 02/08/24Order Info: 4-1 - CBCD Performed By: #### L 100.0100, L501.9520 ####[facility] [address] [place], [address] Nucleated RBC (Bld) [#/Vol] 0 10*3/uL Normal 0-5 [facility] Comment on above: Order Comment: Order Date: 02/08/24Order Info: 4-1 - CBCD Performed By: #### L 100.0100, L501.9520 ####[facility] [address] [place], [address] Platelet mean volume (Bld) [Entitic vol] 11.0 fL Normal 6.2-12.0 [facility] Comment on above: Order Comment: Order Date: 02/08/24Order Info: 0184-1 - CBCD Performed By: #### L 100.0100, L501.9520 ####[facility] [address] [place], [address] Platelets (Bld) [#/Vol] 121 10*3/uL Low 150-450 [facility] Comment on above: Order Comment: Order Date: 02/08/24Order Info: 4-1 - CBCD Performed By: #### L 100.0100, L501.9520 ####[facility] [address] [place], [address] RBC (Bld) [#/Vol] 2.79 10*6/uL Low 4.6-6.2 [facility] Comment on above: Order Comment: Order Date: 02/08/24Order Info: 018- - CBCD Performed By: #### L 100.0100, L501.9520 ####[facility] [address] [place], [address] RDW SD 57.0 fl High 35.1-43.9 [facility] Comment on above: Order Comment: Order Date: 02/08/24Order Info: 0184-1 - CBCD Performed By: #### L 100.0100, L501.9520 ####[facility] [address] [place], [address] WBC (Bld) [#/Vol] 8.6 10*3/uL Normal 4.4-11.0 [facility] Comment on above: Order Comment: Order Date: 02/08/24Order Info: 0184-1 - CBCD Performed By: #### L 100.0100, L501.9520 ####[facility] [address], [address] Thyroid Stim Hormone (TSH)on 02-11-2024 TSH 6.340 uIU/mL High 0.358-3.740 [facility] Comment on above: Order Comment: Order Date: 02/08/24Order Info: 3016-3 - TSHComments: hospital follow up Performed By: #### L 100.0100, L501.9520 ####[facility] [address] [place], [address] Basic Metabolic Profile (BMP )on 02-05-2024 BUN Normal 7-18 [facility] Comment on above: Result Comment: Canc elled via OM: Order cancelled - Patient discharged Performed By: #### L 100.0100, L500.2500 ####[facility] [address] [place], [address] BUN/CRE Normal 10-20 [facility] Comment on above: Result Comment: Canc elled via OM: Order cancelled - Patient discharged Performed By: #### L 100.0100, L500.2500 ####[facility] [address] [place], [address] CA,Total Normal 8.5-10.1 [facility] Comment on above: Result Comment: Canc elled via OM: Order cancelled - Patient discharged Performed By: #### L 100.0100, L500.2500 ####[facility] [address] [place], [address] CL Normal 98-107 [facility] Comment on above: Result Comment: Canc elled via OM: Order cancelled - Patient discharged Performed By: #### L 100.0100, L500.2500 ####[facility] [address], [address] CO2 Normal 21.0-32.0 [facility] Comment on above: Result Comment: Canc elled via OM: Order cancelled - Patient discharged Performed By: #### L 100.0100, L500.2500 ####[facility] [address] [place], [address] CREAT,SERUM Normal 0.70-1.30 [facility] Comment on above: Result Comment: Canc elled via OM: Order cancelled - Patient discharged Performed By: #### L 100.0100, L500.2500 ####[facility] [address] [place], [address] EST GFR Normal >60 [facility] Comment on above: Result Comment: Canc elled via OM: Order cancelled - Patient discharged Performed By: #### L 100.0100, L500.2500 ####[facility] [address] [place], [address] EST GFR - AA Normal >60 [facility] Comment on above: Result Comment: Canc elled via OM: Order cancelled - Patient discharged Performed By: #### L 100.0100, L500.2500 ####[facility] [address] [place], [address] GAP Normal 5-15 [facility] Comment on above: Result Comment: Canc elled via OM: Order cancelled - Patient discharged Performed By: #### L 100.0100, L500.2500 ####[facility] [address] [place], [address] GLU Normal 74-106 [facility] Comment on above: Result Comment: Canc elled via OM: Order cancelled - Patient discharged Performed By: #### L 100.0100, L500.2500 ####[facility] [address] [place], [address] Potassium Normal 3.5-5.1 [facility] Comment on above: Result Comment: Canc elled via OM: Order cancelled - Patient discharged Performed By: #### L 100.0100, L500.2500 ####[facility] [address] [place], [address] Basic Metabolic Profile (BMP) Normal 136-145 [facility] Comment on above: Result Comment: Canc elled via OM: Order cancelled - Patient discharged Performed By: #### L 100.0100, L500.2500 ####[facility] [address] [place], [address] CBC W/Diff, Automatedon 11-2 Absolute Neut Normal 2.0-7.7 [facility] Comment on above: Result Comment: Canc elled via OM: Order cancelled - Patient discharged Performed By: #### L 100.0100, L500.2500 ####[facility] [address] [place], [address] HCT Normal 40-54 [facility] Comment on above: Result Comment: Canc elled via OM: Order cancelled - Patient discharged Performed By: #### L 100.0100, L500.2500 ####[facility] [address] [place], [address] HGB Normal 13.0-16.5 [facility] Comment on above: Result Comment: Canc elled via OM: Order cancelled - Patient discharged Performed By: #### L 100.0100, L500.2500 ####[facility] [address] [place], [address] MCH Normal 27.0-32.0 [facility] Comment on above: Result Comment: Canc elled via OM: Order cancelled - Patient discharged Performed By: #### L 100.0100, L500.2500 ####[facility] [address] [place], [address] MCHC Normal 32-36 [facility] Comment on above: Result Comment: Canc elled via OM: Order cancelled - Patient discharged Performed By: #### L 100.0100, L500.2500 ####[facility] [address] [place], [address] MCV Normal 80-94 [facility] Comment on above: Result Comment: Canc elled via OM: Order cancelled - Patient discharged Performed By: #### L 100.0100, L500.2500 ####[facility] [address] [place], [address] NEUT% Normal 47-70 [facility] Comment on above: Result Comment: Canc elled via OM: Order cancelled - Patient discharged Performed By: #### L 100.0100, L500.2500 ####[facility] [address] [place], [address] PLT Normal 150-450 [facility] Comment on above: Result Comment: Canc elled via OM: Order cancelled - Patient discharged Performed By: #### L 100.0100, L500.2500 ####[facility] [address] [place], [address] RBC Normal 4.6-6.2 [facility] Comment on above: Result Comment: Canc elled via OM: Order cancelled - Patient discharged Performed By: #### L 100.0100, L500.2500 ####[facility] [address] [place], [address] RDW CV Normal 11.6-14.6 [facility] Comment on above: Result Comment: Canc elled via OM: Order cancelled - Patient discharged Performed By: #### L 100.0100, L500.2500 ####[facility] [address] [place], [address] RDW SD Normal 35.1-43.9 [facility] Comment on above: Result Comment: Canc elled via OM: Order cancelled - Patient discharged Performed By: #### L 100.0100, L500.2500 ####[facility] [address] [place], [address] WBC Normal 4.4-11.0 [facility] Comment on above: Result Comment: Canc elled via OM: Order cancelled - Patient discharged Performed By: #### L 100.0100, L500.2500 ####[facility] [address] [place], [address] Basic Metabolic Profile (BMP )on 02-04-2024 BUN/CRE 30.5 RATIO High 10-20 [facility] Comment on above: Performed By: #### L 500.2500, L100.0100 ####[facility] [address] [place], [address] CA,Total 9.4 mg/dL Normal 8.5-10.1 [facility] Comment on above: Performed By: #### L 500.2500, L100.0100 ####[facility] [address] [place], [address] Chloride [Moles/Vol] 108 mmol/L High 98-107 [facility] Comment on above: Performed By: #### L 500.2500, L100.0100 ####[facility] [address] [place], [address] CO2 [Moles/Vol] 24.0 mmol/L Normal 21.0-32.0 [facility] Comment on above: Performed By: #### L 500.2500, L100.0100 ####[facility] [address], [address] Creatinine [Mass/Vol] 2.39 mg/dL High 0.70-1.30 [facility] Comment on above: Result Comment: The validity of the calculated GFR GFRAA in patients over70 years has not been determined. Clinical correlation isessential. Performed By: #### L 500.2500, L100.0100 ####[facility] [address] [place], [address] ECRCL 22.96 ml/min Normal [facility] Comment on above: Performed By: #### L 500.2500, L100.0100 ####[facility] [address] [place], [address] EST GFR - AA 33 mL/min Low >60 [facility] Comment on above: Result Comment: Afri can [place] GFR Calc Performed By: #### L 500.2500, L100.0100 ####[facility] [address] [place], [address] GAP 7 Normal 5-15 [facility] Comment on above: Performed By: #### L 500.2500, L100.0100 ####[facility] [address] [place], [address] GFR/1.73 sq M.predicted among non-blacks MDRD (S/P/Bld) [Vol rate/Area] 28 mL/min/{1.73_m2} Low >60 [facility] Comment on above: Result Comment: Non- GFR Calc Performed By: #### L 500.2500, L100.0100 ####[facility] [address] [place], [address] Glucose [Mass/Vol] 220 mg/dL High 74-106 [facility] Comment on above: Result Comment: Gluc ose result greater than or equal to 200 mg/dLsuggests DIABETES MELLITUS per A.D.A. criteria. Performed By: #### L 500.2500, L100.0100 ####[facility] [address] [place], [address] Potassium [Moles/Vol] 5.2 mmol/L High 3.5-5.1 [facility] Comment on above: Performed By: #### L 500.2500, L100.0100 ####[facility] [address] [place], [address] Sodium [Moles/Vol] 139 mmol/L Normal 136-145 [facility] Comment on above: Performed By: #### L 500.2500, L100.0100 ####[facility] [address], [address] Urea nitrogen [Mass/Vol] 73 mg/dL High 7-18 [facility] Comment on above: Performed By: #### L 500.2500, L100.0100 ####[facility] [address] [place], [address] Bedside Glucoseon 02-03-2023 FINGERSTICK GLU 259 mg/dL High 74-106 [facility] Comment on above: Result Comment: MYKE GEMENT OF PATIENT CARE PER NURSING PROTOCOL Performed By: #### L 501.080 ####[facility] [address], [address] FINGERSTICK GLU 158 mg/dL High 74-106 [facility] Comment on above: Result Comment: MYKE GEMENT OF PATIENT CARE PER NURSING PROTOCOL Performed By: #### L 501.080 ####[facility] [address], [address] FINGERSTICK GLU 196 mg/dL High 74-106 [facility] Comment on above: Result Comment: MYKE GEMENT OF PATIENT CARE PER NURSING PROTOCOL Performed By: #### L 501.080 ####[facility] [address] [place], [address] CBC W/Diff, Automatedon 11- Absolute Lymph 0.45 X10 3/uL Low 0.83-4.51 [facility] Comment on above: Performed By: #### L 500.2500, L100.0100 ####[facility] [address] [place], [address] Absolute Neut 7.9 X10 3/uL High 2.0-7.7 [facility] Comment on above: Performed By: #### L 500.2500, L100.0100 ####[facility] [address] [place], [address] Basophils/100 WBC (Bld) 0.1 % Normal 0-1 [facility] Comment on above: Performed By: #### L 500.2500, L100.0100 ####[facility] [address] [place], [address] Eosinophils/100 WBC (Bld) 0.0 % Normal 0-5 [facility] Comment on above: Performed By: #### L 500.2500, L100.0100 ####[facility] [address] [place], [address] Erythrocyte distribution width (RBC) [Ratio] 14.9 % High 11.6-14.6 [facility] Comment on above: Performed By: #### L 500.2500, L100.0100 ####[facility] [address] [place], [address] Hematocrit (Bld) [Volume fraction] 23.6 % Low 40-54 [facility] Comment on above: Performed By: #### L 500.2500, L100.0100 ####[facility] [address] [place], [address] Hemoglobin (Bld) [Mass/Vol] 7.5 g/dL Low 13.0-16.5 [facility] Comment on above: Performed By: #### L 500.2500, L100.0100 ####[facility] [address] [place], [address] IG% 0.600 Normal 0.0-0.9 [facility] Comment on above: Result Comment: IG% - Immature Granulocytes (promyelocytes, myelocytes andmetamyelocytes) > 1% indicates that a LEFT SHIFT is Present. Performed By: #### L 500.2500, L100.0100 ####[facility] [address] [place], [address] Lymphocytes/100 WBC (Bld) 5.3 % Low 19-41 [facility] Comment on above: Performed By: #### L 500.2500, L100.0100 ####[facility] [address] [place], [address] MCH (RBC) [Entitic mass] 31.3 pg Normal 27.0-32.0 [facility] Comment on above: Performed By: #### L 500.2500, L100.0100 ####[facility] [address] [place], [address] MCHC (RBC) [Mass/Vol] 31.8 g/dL Low 32-36 [facility] Comment on above: Performed By: #### L 500.2500, L100.0100 ####[facility] [address] [place], [address] MCV (RBC) [Entitic vol] 98.3 fL High 80-94 [facility] Comment on above: Performed By: #### L 500.2500, L100.0100 ####[facility] [address] [place], [address] Monocytes/100 WBC (Bld) 1.9 % Normal 0-10 [facility] Comment on above: Performed By: #### L 500.2500, L100.0100 ####[facility] [address] [place], [address] Neutrophils/100 WBC (Bld) 92.1 % High 47-70 [facility] Comment on above: Performed By: #### L 500.2500, L100.0100 ####[facility] [address] [place], [address] Nucleated RBC (Bld) [#/Vol] 0 10*3/uL Normal 0-5 [facility] Comment on above: Performed By: #### L 500.2500, L100.0100 ####[facility] [address] [place], [address] Platelet mean volume (Bld) [Entitic vol] 11.0 fL Normal 6.2-12.0 [facility] Comment on above: Performed By: #### L 500.2500, L100.0100 ####[facility] [address] [place], [address] Platelets (Bld) [#/Vol] 129 10*3/uL Low 150-450 [facility] Comment on above: Performed By: #### L 500.2500, L100.0100 ####[facility] [address] [place], [address] RBC (Bld) [#/Vol] 2.40 10*6/uL Low 4.6-6.2 [facility] Comment on above: Performed By: #### L 500.2500, L100.0100 ####[facility] [address] [place], [address] RDW SD 53.0 fl High 35.1-43.9 [facility] Comment on above: Performed By: #### L 500.2500, L100.0100 ####[facility] [address] [place], [address] WBC (Bld) [#/Vol] 8.5 10*3/uL Normal 4.4-11.0 [facility] Comment on above: Performed By: #### L 500.2500, L100.0100 ####[facility] [address] [place], [address] Discharge Instructionon 01-11 Discharge Instruction Normal [facility] Vitamin B12on 02-04-2024 Cobalamin (Vitamin B12) [Mass/Vol] 661 pg/mL Normal 211-911 [facility] Comment on above: Performed By: #### L 503.0105 ####[facility] [address] [place], [address] Bedside Glucoseon 02-03-2024 FINGERSTICK GLU 192 mg/dL High [address] [place] [address] Comment on above: Result Comment: MYKE GEMENT OF PATIENT CARE PER NURSING PROTOCOL Performed By: #### L 501.080 ####[facility] [address] [place], [address] FINGERSTICK GLU 201 mg/dL High [address] [place] [address] Comment on above: Result Comment: MYKE GEMENT OF PATIENT CARE PER NURSING PROTOCOL Performed By: #### L 501.080 ####[facility] [address] [place], [address] FINGERSTICK GLU 270 mg/dL High [address] [place] [address] Comment on above: Result Comment: MYKE GEMENT OF PATIENT CARE PER NURSING PROTOCOL Performed By: #### L 501.080 ####[facility] [address] [place], [address] FINGERSTICK GLU 215 mg/dL High [address] [place] [address] Comment on above: Result Comment: MYKE GEMENT OF PATIENT CARE PER NURSING PROTOCOL Performed By: #### L 501.080 ####[facility] [address] [place], [address] CBC W/Diff, Automatedon 01-11 Absolute Lymph 0.35 X10 3/uL Low 0.83-4.51 [facility] Comment on above: Performed By: #### L 501.9985, L501.2300, L501.5200, L100.0100, L500.4050 ####[facility] [address] [place], [address] Absolute Neut 4.4 X10 3/uL Normal 2.0-7.7 [facility] Comment on above: Performed By: #### L 501.9985, L501.2300, L501.5200, L100.0100, L500.4050 ####[facility] [address] [place], [address] Basophils/100 WBC (Bld) 0.2 % Normal 0-1 [facility] Comment on above: Performed By: #### L 501.9985, L501.2300, L501.5200, L100.0100, L500.4050 ####[facility] [address] [place], [address] Eosinophils/100 WBC (Bld) 0.4 % Normal 0-5 [facility] Comment on above: Performed By: #### L 501.9985, L501.2300, L501.5200, L100.0100, L500.4050 ####[facility] [address] [place], [address] Erythrocyte distribution width (RBC) [Ratio] 14.8 % High 11.6-14.6 [facility] Comment on above: Performed By: #### L 501.9985, L501.2300, L501.5200, L100.0100, L500.4050 ####[facility] [address] [place], [address] Hematocrit (Bld) [Volume fraction] 24.5 % Low 40-54 [facility] Comment on above: Performed By: #### L 501.9985, L501.2300, L501.5200, L100.0100, L500.4050 ####[facility] [address] [place], [address] Hemoglobin (Bld) [Mass/Vol] 7.7 g/dL Low 13.0-16.5 [facility] Comment on above: Performed By: #### L 501.9985, L501.2300, L501.5200, L100.0100, L500.4050 ####[facility] [address] [place], [address] IG% 0.600 Normal 0.0-0.9 [facility] Comment on above: Result Comment: IG% - Immature Granulocytes (promyelocytes, myelocytes andmetamyelocytes) > 1% indicates that a LEFT SHIFT is Present. Performed By: #### L 501.9985, L501.2300, L501.5200, L100.0100, L500.4050 ####[facility] [address] [place], [address] Lymphocytes/100 WBC (Bld) 7.2 % Low 19-41 [facility] Comment on above: Performed By: #### L 501.9985, L501.2300, L501.5200, L100.0100, L500.4050 ####[facility] [address] [place], [address] MCH (RBC) [Entitic mass] 31.8 pg Normal 27.0-32.0 [facility] Comment on above: Performed By: #### L 501.9985, L501.2300, L501.5200, L100.0100, L500.4050 ####[facility] [address] [place], [address] MCHC (RBC) [Mass/Vol] 31.4 g/dL Low 32-36 [facility] Comment on above: Performed By: #### L 501.9985, L501.2300, L501.5200, L100.0100, L500.4050 ####[facility] [address] [place], [address] MCV (RBC) [Entitic vol] 101.2 fL High 80-94 [facility] Comment on above: Performed By: #### L 501.9985, L501.2300, L501.5200, L100.0100, L500.4050 ####[facility] [address] [place], [address] Monocytes/100 WBC (Bld) 0.8 % Normal 0-10 [facility] Comment on above: Performed By: #### L 501.9985, L501.2300, L501.5200, L100.0100, L500.4050 ####[facility] [address] [place], [address] Neutrophils/100 WBC (Bld) 90.8 % High 47-70 [facility] Comment on above: Performed By: #### L 501.9985, L501.2300, L501.5200, L100.0100, L500.4050 ####[facility] [address] [place], [address] Nucleated RBC (Bld) [#/Vol] 0 10*3/uL Normal 0-5 [facility] Comment on above: Performed By: #### L 501.9985, L501.2300, L501.5200, L100.0100, L500.4050 ####[facility] [address] [place], [address] Platelet mean volume (Bld) [Entitic vol] 11.3 fL Normal 6.2-12.0 [facility] Comment on above: Performed By: #### L 501.9985, L501.2300, L501.5200, L100.0100, L500.4050 ####[facility] [address] [place], [address] Platelets (Bld) [#/Vol] 105 10*3/uL Low 150-450 [facility] Comment on above: Performed By: #### L 501.9985, L501.2300, L501.5200, L100.0100, L500.4050 ####[facility] [address] [place], [address] RBC (Bld) [#/Vol] 2.42 10*6/uL Low 4.6-6.2 [facility] Comment on above: Performed By: #### L 501.9985, L501.2300, L501.5200, L100.0100, L500.4050 ####[facility] [address] [place], [address] RDW SD 53.8 fl High 35.1-43.9 [facility] Comment on above: Performed By: #### L 501.9985, L501.2300, L501.5200, L100.0100, L500.4050 ####[facility] [address] [place], [address] WBC (Bld) [#/Vol] 4.9 10*3/uL Normal 4.4-11.0 [facility] Comment on above: Performed By: #### L 501.9985, L501.2300, L501.5200, L100.0100, L500.4050 ####[facility] [address] [place], [address] Comprehensive Metabolic [facility] 02-03-2024 Albumin [Mass/Vol] 3.1 g/dL Low 3.2-5.0 [facility] Comment on above: Performed By: #### L 501.9985, L501.2300, L501.5200, L100.0100, L500.4050 ####[facility] [address] [place], [address] Albumin/Globulin [Mass ratio] 0.9 {ratio} Normal 0.9-2.4 [facility] Comment on above: Performed By: #### L 501.9985, L501.2300, L501.5200, L100.0100, L500.4050 ####[facility] [address] [place], [address] ALK P 64 U/L Normal 45-117 [facility] Comment on above: Performed By: #### L 501.9985, L501.2300, L501.5200, L100.0100, L500.4050 ####[facility] [address] [place], [address] ALT [Catalytic activity/Vol] 20 U/L Normal 16-61 [facility] Comment on above: Performed By: #### L 501.9985, L501.2300, L501.5200, L100.0100, L500.4050 ####[facility] [address] [place], [address] AST [Catalytic activity/Vol] 10 U/L Low 15-37 [facility] Comment on above: Performed By: #### L 501.9985, L501.2300, L501.5200, L100.0100, L500.4050 ####[facility] [address] [place], [address] Bilirubin [Mass/Vol] 0.50 mg/dL Normal 0.20-1.00 [facility] Comment on above: Result Comment: For patients on eltrombopag therapy, use of Dimension [place] TBIL is not recommended. Performed By: #### L 501.9985, L501.2300, L501.5200, L100.0100, L500.4050 ####[facility] [address] [place], [address] BUN/CRE 24.9 RATIO High 10-20 [facility] Comment on above: Performed By: #### L 501.9985, L501.2300, L501.5200, L100.0100, L500.4050 ####[facility] [address] [place], [address] CA,Total 8.9 mg/dL Normal 8.5-10.1 [facility] Comment on above: Performed By: #### L 501.9985, L501.2300, L501.5200, L100.0100, L500.4050 ####[facility] [address] [place], [address] Chloride [Moles/Vol] 110 mmol/L High 98-107 [facility] Comment on above: Performed By: #### L 501.9985, L501.2300, L501.5200, L100.0100, L500.4050 ####[facility] [address] [place], [address] CO2 [Moles/Vol] 24.0 mmol/L Normal 21.0-32.0 [facility] Comment on above: Performed By: #### L 501.9985, L501.2300, L501.5200, L100.0100, L500.4050 ####[facility] [address] [place], [address] Creatinine [Mass/Vol] 2.25 mg/dL High 0.70-1.30 [facility] Comment on above: Result Comment: The validity of the calculated GFR GFRAA in patients over70 years has not been determined. Clinical correlation isessential. Performed By: #### L 501.9985, L501.2300, L501.5200, L100.0100, L500.4050 ####[facility] [address] [place], [address] ECRCL 24.38 ml/min Normal [facility] Comment on above: Performed By: #### L 501.9985, L501.2300, L501.5200, L100.0100, L500.4050 ####[facility] [address] [place], [address] EST GFR - AA 36 mL/min Low >60 [facility] Comment on above: Result Comment: Afri can [place] GFR Calc Performed By: #### L 501.9985, L501.2300, L501.5200, L100.0100, L500.4050 ####[facility] [address] [place], [address] GAP 7 Normal 5-15 [facility] Comment on above: Performed By: #### L 501.9985, L501.2300, L501.5200, L100.0100, L500.4050 ####[facility] [address] [place], [address] GFR/1.73 sq M.predicted among non-blacks MDRD (S/P/Bld) [Vol rate/Area] 30 mL/min/{1.73_m2} Low >60 [facility] Comment on above: Result Comment: Non- GFR Calc Performed By: #### L 501.9985, L501.2300, L501.5200, L100.0100, L500.4050 ####[facility] [address] [place], [address] Globulin (S) [Mass/Vol] 3.5 g/dL Normal 2.2-4.2 [facility] Comment on above: Performed By: #### L 501.9985, L501.2300, L501.5200, L100.0100, L500.4050 ####[facility] [address] [place], [address] Glucose [Mass/Vol] 229 mg/dL High 74-106 [facility] Comment on above: Result Comment: Gluc ose result greater than or equal to 200 mg/dLsuggests DIABETES MELLITUS per A.D.A. criteria. Performed By: #### L 501.9985, L501.2300, L501.5200, L100.0100, L500.4050 ####[facility] [address] [place], [address] Potassium [Moles/Vol] 5.4 mmol/L High 3.5-5.1 [facility] Comment on above: Performed By: #### L 501.9985, L501.2300, L501.5200, L100.0100, L500.4050 ####[facility] [address] [place], [address] Sodium [Moles/Vol] 142 mmol/L Normal 136-145 [facility] Comment on above: Performed By: #### L 501.9985, L501.2300, L501.5200, L100.0100, L500.4050 ####[facility] [address] [place], [address] T PROT 6.6 g/dL Normal 6.4-8.2 [facility] Comment on above: Performed By: #### L 501.9985, L501.2300, L501.5200, L100.0100, L500.4050 ####[facility] [address] [place], [address] Urea nitrogen [Mass/Vol] 56 mg/dL High 7-18 [facility] Comment on above: Performed By: #### L 501.9985, L501.2300, L501.5200, L100.0100, L500.4050 ####[facility] [address] [place], [address] Ferritinon 02-03-2024 Ferritin [Mass/Vol] 25 ng/mL Low 26-388 [facility] Comment on above: Order Comment: Has P atbrian had X-rays with Contrast this admission? NN Performed By: #### L 506.0250, L503.6550, L501.9520, L501.4020, L503.6030 ####[facility] [address] [place], [address] Folates, (Folic Acid)on 01-11 FOLATES 12.80 ng/mL Normal 3.1-55.4 [facility] Comment on above: Order Comment: Has P atbrian had X-rays with Contrast this admission? NN Performed By: #### L 506.0250, L503.6550, L501.9520, L501.4020, L503.6030 ####[facility] [address] [place], [address] Hemoglobin A1con 02-03-2024 HbA1c (Bld) [Mass fraction] 5.7 % High 3.8-5.6 [facility] Comment on above: Result Comment: Norm al < 5.7 % Prediabetic 5.7 - 6.4 % Diabetic >or= 6.5 % Please note range changes. Performed By: #### L 501.9985, L501.2300, L501.5200, L100.0100, L500.4050 ####[facility] [address] [place], [address] Iron+Iron Binding Capacityon 02-03-2024 Iron [Mass/Vol] 61 ug/dL Low 65-175 [facility] Comment on above: Order Comment: Has Fransisco okeefe had X-rays with Contrast this admission? NN Performed By: #### L 506.0250, L503.6550, L501.9520, L501.4020, L503.6030 ####[facility] [address] [place], [address] IRON SATURATION 21.2 Normal 15.0-55.0 [facility] Comment on above: Order Comment: Has Fransisco okeefe had X-rays with Contrast this admission? NN Performed By: #### L 506.0250, L503.6550, L501.9520, L501.4020, L503.6030 ####[facility] [address] [place], [address] TIBC 288 ug/dL Normal 250-450 [facility] Comment on above: Order Comment: Has Fransisco okeefe had X-rays with Contrast this admission? NN Performed By: #### L 506.0250, L503.6550, L501.9520, L501.4020, L503.6030 ####[facility] [address] [place], [address] L501.4020on 02-03-2024 TROPONIN-I HS 37 pg/mL Normal 3.0-78.0 [facility] Comment on above: Order Comment: Has Fransisco okeefe had X-rays with Contrast this admission? NN Result Comment: Sara saleh Note: New Test Units and Gender Specific Reference Ranges. For more information see Policy Stat Procedure [place] High Sensitivity Troponin (TNIH) and attachments. Performed By: #### L 506.0250, L503.6550, L501.9520, L501.4020, L503.6030 ####[facility] [address] [place], [address] M100.678on 02-03-2024 M100.678 Pending SARS-CoV-2 (COVID 19) Negative INFLUENZA A Negative INFLUENZA B Negative RSV PCR Negative Normal [facility] Comment on above: Performed By: #### M 100.678 ####[facility] [address] [place], [address] Magnesiumon 02-03-2024 Magnesium [Mass/Vol] 2.0 mg/dL Normal 1.6-2.6 [facility] Comment on above: Performed By: #### L 501.9985, L501.2300, L501.5200, L100.0100, L500.4050 ####[facility] [address] [place], [address] Phosphoruson 02-03-2024 Phosphate [Mass/Vol] 2.6 mg/dL Normal 2.5-4.9 [facility] Comment on above: Performed By: #### L 501.9985, L501.2300, L501.5200, L100.0100, L500.4050 ####[facility] [address] [place], [address] Thyroid Stim Hormone (TSH)on 02-03-2024 TSH 4.220 uIU/mL High 0.358-3.740 [facility] Comment on above: Order Comment: Has P atient had X-rays with Contrast this admission? NN Performed By: #### L 506.0250, L503.6550, L501.9520, L501.4020, L503.6030 ####[facility] [address] [place], [address] Type AND Screenon 02-03-2024 ABO and Rh group Nom (Bld) Blood group A Rh(D) negative Normal [facility] Comment on above: Order Comment: A Performed By: #### B TS ####[facility] [address] [place], [address] Ab SCREEN GEL PENDING Normal [facility] Comment on above: Order Comment: A Performed By: #### B TS ####[facility] [address] [place], [address] 12 Lead EKGon 02-02-2024 12 Lead EKG Normal [facility] BNP,B-Type NATRIURETIC PEPTI Nico 02-02-2024 Natriuretic peptide B (Bld) [Mass/Vol] 188.6 pg/mL High 0-100 [facility] Comment on above: Performed By: #### L 100.0100, L501.5425, L500.2500, L503.6620 ####[facility] [address] [place], [address] Basic Metabolic Profile (BMP )on 02-02-2024 BUN/CRE 26.4 RATIO High 10-20 [facility] Comment on above: Order Comment: 1Y Performed By: #### L 100.0100, L501.5425, L500.2500, L503.6620 ####[facility] [address] [place], [address] CA,Total 8.9 mg/dL Normal 8.5-10.1 [facility] Comment on above: Order Comment: 1Y Performed By: #### L 100.0100, L501.5425, L500.2500, L503.6620 ####[facility] [address] [place], [address] Chloride [Moles/Vol] 112 mmol/L High 98-107 [facility] Comment on above: Order Comment: 1Y Performed By: #### L 100.0100, L501.5425, L500.2500, L503.6620 ####[facility] [address] [place], [address] CO2 [Moles/Vol] 27.0 mmol/L Normal 21.0-32.0 [facility] Comment on above: Order Comment: 1Y Performed By: #### L 100.0100, L501.5425, L500.2500, L503.6620 ####[facility] [address] [place], [address] Creatinine [Mass/Vol] 2.35 mg/dL High 0.70-1.30 [facility] Comment on above: Order Comment: 1Y Result Comment: The validity of the calculated GFR GFRAA in patients over70 years has not been determined. Clinical correlation isessential. Performed By: #### L 100.0100, L501.5425, L500.2500, L503.6620 ####[facility] [address] [place], [address] ECRCL 23.21 ml/min Normal [facility] Comment on above: Order Comment: 1Y Performed By: #### L 100.0100, L501.5425, L500.2500, L503.6620 ####[facility] [address] [place], [address] EST GFR - AA 34 mL/min Low >60 [facility] Comment on above: Order Comment: 1Y Result Comment: Afri can [place] GFR Calc Performed By: #### L 100.0100, L501.5425, L500.2500, L503.6620 ####[facility] [address] [place], [address] GAP 6 Normal 5-15 [facility] Comment on above: Order Comment: 1Y Performed By: #### L 100.0100, L501.5425, L500.2500, L503.6620 ####[facility] [address] [place], [address] GFR/1.73 sq M.predicted among non-blacks MDRD (S/P/Bld) [Vol rate/Area] 28 mL/min/{1.73_m2} Low >60 [facility] Comment on above: Order Comment: 1Y Result Comment: Non- GFR Calc Performed By: #### L 100.0100, L501.5425, L500.2500, L503.6620 ####[facility] [address] [place], [address] Glucose [Mass/Vol] 248 mg/dL High 74-106 [facility] Comment on above: Order Comment: 1Y Result Comment: Gluc ose result greater than or equal to 200 mg/dLsuggests DIABETES MELLITUS per A.D.A. criteria. Performed By: #### L 100.0100, L501.5425, L500.2500, L503.6620 ####[facility] [address] [place], [address] Potassium [Moles/Vol] 4.7 mmol/L Normal 3.5-5.1 [facility] Comment on above: Order Comment: 1Y Performed By: #### L 100.0100, L501.5425, L500.2500, L503.6620 ####[facility] [address] [place], [address] Sodium [Moles/Vol] 145 mmol/L Normal 136-145 [facility] Comment on above: Order Comment: 1Y Performed By: #### L 100.0100, L501.5425, L500.2500, L503.6620 ####[facility] [address] [place], [address] Urea nitrogen [Mass/Vol] 62 mg/dL High 7-18 [facility] Comment on above: Order Comment: 1Y Performed By: #### L 100.0100, L501.5425, L500.2500, L503.6620 ####[facility] [address] [place], [address] CBC W/Diff, Automatedon 11-2 -2023 Absolute Lymph 0.88 X10 3/uL Normal 0.83-4.51 [facility] Comment on above: Performed By: #### L 100.0100, L501.5425, L500.2500, L503.6620 ####[facility] [address] [place], [address] Absolute Neut 4.1 X10 3/uL Normal 2.0-7.7 [facility] Comment on above: Performed By: #### L 100.0100, L501.5425, L500.2500, L503.6620 ####[facility] [address] [place], [address] Basophils/100 WBC (Bld) 0.2 % Normal 0-1 [facility] Comment on above: Performed By: #### L 100.0100, L501.5425, L500.2500, L503.6620 ####[facility] [address] [place], [address] Eosinophils/100 WBC (Bld) 4.0 % Normal 0-5 [facility] Comment on above: Performed By: #### L 100.0100, L501.5425, L500.2500, L503.6620 ####[facility] [address] [place], [address] Erythrocyte distribution width (RBC) [Ratio] 15.0 % High 11.6-14.6 [facility] Comment on above: Performed By: #### L 100.0100, L501.5425, L500.2500, L503.6620 ####[facility] [address] [place], [address] Hematocrit (Bld) [Volume fraction] 24.2 % Low 40-54 [facility] Comment on above: Performed By: #### L 100.0100, L501.5425, L500.2500, L503.6620 ####[facility] [address] [place], [address] Hemoglobin (Bld) [Mass/Vol] 7.5 g/dL Low 13.0-16.5 [facility] Comment on above: Performed By: #### L 100.0100, L501.5425, L500.2500, L503.6620 ####[facility] [address] [place], [address] IG% 0.400 Normal 0.0-0.9 [facility] Comment on above: Result Comment: IG% - Immature Granulocytes (promyelocytes, myelocytes andmetamyelocytes) > 1% indicates that a LEFT SHIFT is Present. Performed By: #### L 100.0100, L501.5425, L500.2500, L503.6620 ####[facility] [address] [place], [address] Lymphocytes/100 WBC (Bld) 15.8 % Low 19-41 [facility] Comment on above: Performed By: #### L 100.0100, L501.5425, L500.2500, L503.6620 ####[facility] [address] [place], [address] MCH (RBC) [Entitic mass] 31.3 pg Normal 27.0-32.0 [facility] Comment on above: Performed By: #### L 100.0100, L501.5425, L500.2500, L503.6620 ####[facility] [address] [place], [address] MCHC (RBC) [Mass/Vol] 31.0 g/dL Low 32-36 [facility] Comment on above: Performed By: #### L 100.0100, L501.5425, L500.2500, L503.6620 ####[facility] [address] [place], [address] MCV (RBC) [Entitic vol] 100.8 fL High 80-94 [facility] Comment on above: Performed By: #### L 100.0100, L501.5425, L500.2500, L503.6620 ####[facility] [address] [place], [address] Monocytes/100 WBC (Bld) 6.8 % Normal 0-10 [facility] Comment on above: Performed By: #### L 100.0100, L501.5425, L500.2500, L503.6620 ####[facility] [address] [place], [address] Neutrophils/100 WBC (Bld) 72.8 % High 47-70 [facility] Comment on above: Performed By: #### L 100.0100, L501.5425, L500.2500, L503.6620 ####[facility] [address] [place], [address] Nucleated RBC (Bld) [#/Vol] 0 10*3/uL Normal 0-5 [facility] Comment on above: Performed By: #### L 100.0100, L501.5425, L500.2500, L503.6620 ####[facility] [address] [place], [address] Platelet mean volume (Bld) [Entitic vol] 10.7 fL Normal 6.2-12.0 [facility] Comment on above: Performed By: #### L 100.0100, L501.5425, L500.2500, L503.6620 ####[facility] [address] [place], [address] Platelets (Bld) [#/Vol] 115 10*3/uL Low 150-450 [facility] Comment on above: Performed By: #### L 100.0100, L501.5425, L500.2500, L503.6620 ####[facility] [address] [place], [address] RBC (Bld) [#/Vol] 2.40 10*6/uL Low 4.6-6.2 [facility] Comment on above: Performed By: #### L 100.0100, L501.5425, L500.2500, L503.6620 ####[facility] [address] [place], [address] RDW SD 54.6 fl High 35.1-43.9 [facility] Comment on above: Performed By: #### L 100.0100, L501.5425, L500.2500, L503.6620 ####[facility] [address] [place], [address] WBC (Bld) [#/Vol] 5.6 10*3/uL Normal 4.4-11.0 [facility] Comment on above: Performed By: #### L 100.0100, L501.5425, L500.2500, L503.6620 ####[facility] [address] [place], [address] Chest 1 View (Portable)on Chest 1 View (Portable) Normal [facility] Emergency Department Summary on 02-02-2024 Emergency Department Summary Normal [facility] H AND P Exam - Hospitaliston 02-02-2024 H&P Exam - Hospitalist Normal [facility] L501.5425on 02-02-2024 TROPONIN-I HS 28 pg/mL Normal 3.0-78.0 [facility] Comment on above: Order Comment: 1Y Result Comment: Sara saleh Note: New Test Units and Gender Specific Reference Ranges. For more information see Policy Stat Procedure [place] High Sensitivity Troponin (TNIH) and attachments. Performed By: #### L 100.0100, L501.5425, L500.2500, L503.6620 ####[facility] [address] [place], [address] Stool Occult Blood iFOBon STOB Negative Normal [facility] Comment on above: Performed By: #### M 100.7900 ####[facility] [address] [place], [address] CBC-Complete Blood Cnt No Di ffon 01-22-2024 Erythrocyte distribution width (RBC) [Ratio] 13.5 % Normal 11.6-14.6 [facility] Comment on above: Order Comment: CC CM P TO DR. YURIDIA HERNANDEZ Performed By: #### L 500.4050, L509.1000, L100.0500, L506.1000 ####[facility] [address] [place], [address] Hematocrit (Bld) [Volume fraction] 29.4 % Low 40-54 [facility] Comment on above: Order Comment: CC CM P TO DR. YURIDIA HERNANDEZ Performed By: #### L 500.4050, L509.1000, L100.0500, L506.1000 ####[facility] [address] [place], [address] Hemoglobin (Bld) [Mass/Vol] 9.4 g/dL Low 13.0-16.5 [facility] Comment on above: Order Comment: CC CM P TO DR. YURIDIA HERNANDEZ Performed By: #### L 500.4050, L509.1000, L100.0500, L506.1000 ####[facility] [address] [place], [address] MCH (RBC) [Entitic mass] 30.6 pg Normal 27.0-32.0 [facility] Comment on above: Order Comment: CC CM P TO DR. YURIDIA HERNANDEZ Performed By: #### L 500.4050, L509.1000, L100.0500, L506.1000 ####[facility] [address] [place], [address] MCHC (RBC) [Mass/Vol] 32.0 g/dL Normal 32-36 [facility] Comment on above: Order Comment: CC CM P TO DR. YURIDIA HERNANDEZ Performed By: #### L 500.4050, L509.1000, L100.0500, L506.1000 ####[facility] [id number] [place], [address] MCV (RBC) [Entitic vol] 95.8 fL High 80-94 [facility] Comment on above: Order Comment: CC CM P TO DR. YURIDIA HERNANDEZ Performed By: #### L 500.4050, L509.1000, L100.0500, L506.1000 ####[facility] [id number] [place], [address] Platelet mean volume (Bld) [Entitic vol] 11.4 fL Normal 6.2-12.0 [facility] Comment on above: Order Comment: CC CM P TO DR. YURIDIA HERNANDEZ Performed By: #### L 500.4050, L509.1000, L100.0500, L506.1000 ####[facility] [id number] [place], [address] Platelets (Bld) [#/Vol] 92 10*3/uL Low 150-450 [facility] Comment on above: Order Comment: CC CM P TO DR. YURIDIA HERNANDEZ Performed By: #### L 500.4050, L509.1000, L100.0500, L506.1000 ####[facility] [address] [place], [address] RBC (Bld) [#/Vol] 3.07 10*6/uL Low 4.6-6.2 [facility] Comment on above: Order Comment: CC CM P TO DR. YURIDIA HERNANDEZ Performed By: #### L 500.4050, L509.1000, L100.0500, L506.1000 ####[facility] [address] [place], [address] RDW SD 47.8 fl High 35.1-43.9 [facility] Comment on above: Order Comment: CC CM P TO DR. YURIDIA HERNANDEZ Performed By: #### L 500.4050, L509.1000, L100.0500, L506.1000 ####[facility] [address] [place], [address] WBC (Bld) [#/Vol] 8.8 10*3/uL Normal 4.4-11.0 [facility] Comment on above: Order Comment: CC CM P TO DR. YURIDIA HERNANDEZ Performed By: #### L 500.4050, L509.1000, L100.0500, L506.1000 ####[facility] [address] [place], [address] Comprehensive Metabolic Prof [facility] 01-22-2024 Albumin [Mass/Vol] 3.5 g/dL Normal 3.2-5.0 [facility] Comment on above: Order Comment: CC CM P TO DR. YURIDIA HERNANDEZ Performed By: #### L 500.4050, L509.1000, L100.0500, L506.1000 ####[facility] [address] [place], [address] Albumin/Globulin [Mass ratio] 1.0 {ratio} Normal 0.9-2.4 [facility] Comment on above: Order Comment: CC CM P TO DR. YURIDIA HERNANDEZ Performed By: #### L 500.4050, L509.1000, L100.0500, L506.1000 ####[facility] [address] [place], [address] ALK P 67 U/L Normal 45-117 [facility] Comment on above: Order Comment: CC CM P TO DR. YURIDIA HERNANDEZ Performed By: #### L 500.4050, L509.1000, L100.0500, L506.1000 ####[facility] [address] [place], [address] ALT [Catalytic activity/Vol] 22 U/L Normal 16-61 [facility] Comment on above: Order Comment: CC CM P TO DR. YURIDIA HERNANDEZ Performed By: #### L 500.4050, L509.1000, L100.0500, L506.1000 ####[facility] [address] [place], [address] AST [Catalytic activity/Vol] 12 U/L Low 15-37 [facility] Comment on above: Order Comment: CC CM P TO DR. YURIDIA HERNANDEZ Performed By: #### L 500.4050, L509.1000, L100.0500, L506.1000 ####[facility] [address] [place], [address] Bilirubin [Mass/Vol] 0.60 mg/dL Normal 0.20-1.00 [facility] Comment on above: Order Comment: CC CM P TO DR. YURIDIA HERNANDEZ Result Comment: For patients on eltrombopag therapy, use of Dimension [place] TBIL is not recommended. Performed By: #### L 500.4050, L509.1000, L100.0500, L506.1000 ####[facility] [address] [place], [address] BUN/CRE 32.0 RATIO High 10-20 [facility] Comment on above: Order Comment: CC CM P TO DR. YURIDIA HERNANDEZ Performed By: #### L 500.4050, L509.1000, L100.0500, L506.1000 ####[facility] [address] [place], [address] CA,Total 9.4 mg/dL Normal 8.5-10.1 [facility] Comment on above: Order Comment: CC CM P TO DR. YURIDIA HERNANDEZ Performed By: #### L 500.4050, L509.1000, L100.0500, L506.1000 ####[facility] [address] [place], [address] Chloride [Moles/Vol] 106 mmol/L Normal 98-107 [facility] Comment on above: Order Comment: CC CM P TO DR. YURIDIA HERNANDEZ Performed By: #### L 500.4050, L509.1000, L100.0500, L506.1000 ####[facility] [address] [place], [address] CO2 [Moles/Vol] 28.0 mmol/L Normal 21.0-32.0 [facility] Comment on above: Order Comment: CC CM P TO DR. YURIDIA HERNANDEZ Performed By: #### L 500.4050, L509.1000, L100.0500, L506.1000 ####[facility] [address] [place], [address] Creatinine [Mass/Vol] 2.31 mg/dL High 0.70-1.30 [facility] Comment on above: Order Comment: CC CM P TO DR. YURIDIA HERNANDEZ Result Comment: The validity of the calculated GFR GFRAA in patients over70 years has not been determined. Clinical correlation isessential. Performed By: #### L 500.4050, L509.1000, L100.0500, L506.1000 ####[facility] [address] [place], [address] EST GFR - AA 35 mL/min Low >60 [facility] Comment on above: Order Comment: CC CM P TO DR. YURIDIA HERNANDEZ Result Comment: Afri can [place] GFR Calc Performed By: #### L 500.4050, L509.1000, L100.0500, L506.1000 ####[facility] [address] [place], [address] GAP 8 Normal 5-15 [facility] Comment on above: Order Comment: CC CM P TO DR. YURIDIA HERNANDEZ Performed By: #### L 500.4050, L509.1000, L100.0500, L506.1000 ####[facility] [address] [place], [address] GFR/1.73 sq M.predicted among non-blacks MDRD (S/P/Bld) [Vol rate/Area] 29 mL/min/{1.73_m2} Low >60 [facility] Comment on above: Order Comment: CC CM P TO DR. YURIDIA HERNANDEZ Result Comment: Non- GFR Calc Performed By: #### L 500.4050, L509.1000, L100.0500, L506.1000 ####[facility] [address] [place], [address] Globulin (S) [Mass/Vol] 3.5 g/dL Normal 2.2-4.2 [facility] Comment on above: Order Comment: CC CM P TO DR. YURIDIA HERNANDEZ Performed By: #### L 500.4050, L509.1000, L100.0500, L506.1000 ####[facility] [address] [place], [address] Glucose [Mass/Vol] 191 mg/dL High 74-106 [facility] Comment on above: Order Comment: CC CM P TO DR. YURIDIA HERNANDEZ Result Comment: Fast ing Glucose result greater than or equal to 126 mg/dLsuggests DIABETES MELLITUS per A.D.A. criteria. Performed By: #### L 500.4050, L509.1000, L100.0500, L506.1000 ####[facility] [address] [place], [address] Potassium [Moles/Vol] 4.0 mmol/L Normal 3.5-5.1 [facility] Comment on above: Order Comment: CC CM P TO DR. YURIDIA HERNANDEZ Performed By: #### L 500.4050, L509.1000, L100.0500, L506.1000 ####[facility] [address], [address] Sodium [Moles/Vol] 142 mmol/L Normal 136-145 [facility] Comment on above: Order Comment: CC CM P TO DR. YURIDIA HERNANDEZ Performed By: #### L 500.4050, L509.1000, L100.0500, L506.1000 ####[facility] [address], [address] T PROT 7.0 g/dL Normal 6.4-8.2 [facility] Comment on above: Order Comment: CC CM P TO DR. YURIDIA HERNANDEZ Performed By: #### L 500.4050, L509.1000, L100.0500, L506.1000 ####[facility] [address] [place], [address] Urea nitrogen [Mass/Vol] 74 mg/dL High 7-18 [facility] Comment on above: Order Comment: CC CM P TO DR. YURIDIA HERNANDEZ Performed By: #### L 500.4050, L509.1000, L100.0500, L506.1000 ####[facility] [address] [place], [address] Hemoglobin A1con 01-22-2024 HbA1c (Bld) [Mass fraction] 6.1 % High 3.8-5.6 [facility] Comment on above: Order Comment: CC AMY BS TO DR. Fidencio WASHBURN Result Comment: Norm al < 5.7 % Prediabetic 5.7 - 6.4 % Diabetic >or= 6.5 % Please note range changes. Performed By: #### L 501.9985, L500.4100 ####[facility] [address] [place], [address] Lipid Profileon 01-22-2024 Cholesterol [Mass/Vol] 180 mg/dL Normal 200 [facility] Comment on above: Order Comment: CC LA BS TO DR. Fidencio WASHBURN Result Comment: <200 mg/dL Desirable 200-240 mg/dL Borderline >240 mg/dL High Risk Performed By: #### L 501.9985, L500.4100 ####[facility] [address] [place], [address] Cholesterol in HDL [Mass/Vol] 42 mg/dL Normal [facility] Comment on above: Order Comment: CC LA BS TO DR. Fidencio WASHBURN Result Comment: The drugs N-Acetylcysteine and Metamizole may falselydepress this assay. Reference Range HDL <40 mg/dL Low HDL Cholesterol HDL >or= 60 mg/dL High HDL Cholesterol Performed By: #### L 501.9985, L500.4100 ####[facility] [address] [place], [address] Cholesterol in LDL [Mass/Vol] 95 mg/dL Normal 0-130 [facility] Comment on above: Order Comment: CC LA BS TO DR. Fidencio WASHBURN Performed By: #### L 501.9985, L500.4100 ####[facility] [address] [place], [address] Cholesterol in VLDL [Mass/Vol] 43 mg/dL High 5-40 [facility] Comment on above: Order Comment: CC LA BS TO DR. Fidencio WASHBURN Performed By: #### L 501.9985, L500.4100 ####[facility] [address] [place], [address] Triglyceride [Mass/Vol] 216 mg/dL High [facility] Comment on above: Order Comment: CC LA BS TO DR. Fidencio WASHBURN Result Comment: The drugs N-Acetylcysteine and Metamizole may falselydepress this assay.Serum Triglycerides Reference Interval Normal <150 mg/dL Borderline high 150 - 199 mg/dL High 200 - 499 mg/dL Very High > or = 500 mg/dL Performed By: #### L 501.9985, L500.4100 ####[facility] [address] [place], [address] PTHINon 01-22-2024 PTH 186.8 pg/mL High 18.4-80.1 [facility] Comment on above: Order Comment: CC CM P TO DR. YURIDIA HERNANDEZ Performed By: #### L 500.4050, L509.1000, L100.0500, L506.1000 ####[facility] [address] [place], [address] Vitamin D,25 Hydroxyon 01-21 Vitamin D 25-OH 34.1 ng/mL Normal [facility] Comment on above: Order Comment: CC CM P TO DR. YURIDIA HERNANDEZ Result Comment: Celia min D 25(OH) Status Range Deficiency <20 ng/mL (50nmol/L) Insufficiency 20 - 30 ng/mL (50 - 75 nmol/L) Sufficiency 30 - 100 ng/mL (75 - 250 nmol/L) Toxicity >100 ng/mL (>250 nmol/L) Performed By: #### L 500.4050, L509.1000, L100.0500, L506.1000 ####[facility] [address] [place], [address] 12 Lead EKGon 01-10-2024 12 Lead EKG Normal [facility] Basic Metabolic Profile (BMP )on 01-10-2024 BUN/CRE 36.3 RATIO High 10-20 [facility] Comment on above: Performed By: #### L 100.0100, L500.2500 ####[facility] [address] [place], [address] CA,Total 8.6 mg/dL Normal 8.5-10.1 [facility] Comment on above: Performed By: #### L 100.0100, L500.2500 ####[facility] [address] [place], [address] Chloride [Moles/Vol] 110 mmol/L High 98-107 [facility] Comment on above: Performed By: #### L 100.0100, L500.2500 ####[facility] [address] [place], [address] CO2 [Moles/Vol] 28.0 mmol/L Normal 21.0-32.0 [facility] Comment on above: Performed By: #### L 100.0100, L500.2500 ####[facility] [address] [place], [address] Creatinine [Mass/Vol] 2.48 mg/dL High 0.70-1.30 [facility] Comment on above: Result Comment: The validity of the calculated GFR GFRAA in patients over70 years has not been determined. Clinical correlation isessential. Performed By: #### L 100.0100, L500.2500 ####[facility] [address] [place], [address] ECRCL 21.44 ml/min Normal [facility] Comment on above: Performed By: #### L 100.0100, L500.2500 ####[facility] [address] [place], [address] EST GFR - AA 32 mL/min Low >60 [facility] Comment on above: Result Comment: Afri can [place] GFR Calc Performed By: #### L 100.0100, L500.2500 ####[facility] [address] [place], [address] GAP 7 Normal 5-15 [facility] Comment on above: Performed By: #### L 100.0100, L500.2500 ####[facility] [address] [place], [address] GFR/1.73 sq M.predicted among non-blacks MDRD (S/P/Bld) [Vol rate/Area] 27 mL/min/{1.73_m2} Low >60 [facility] Comment on above: Result Comment: Non- GFR Calc Performed By: #### L 100.0100, L500.2500 ####[facility] [address] [place], [address] Glucose [Mass/Vol] 175 mg/dL High 74-106 [facility] Comment on above: Result Comment: Fast ing Glucose result greater than or equal to 126 mg/dLsuggests DIABETES MELLITUS per A.D.A. criteria. Performed By: #### L 100.0100, L500.2500 ####[facility] [address] [place], [address] Potassium [Moles/Vol] 4.5 mmol/L Normal 3.5-5.1 [facility] Comment on above: Performed By: #### L 100.0100, L500.2500 ####[facility] [address] [place], [address] Sodium [Moles/Vol] 145 mmol/L Normal 136-145 [facility] Comment on above: Performed By: #### L 100.0100, L500.2500 ####[facility] [address] [place], [address] Urea nitrogen [Mass/Vol] 90 mg/dL High 7-18 [facility] Comment on above: Performed By: #### L 100.0100, L500.2500 ####[facility] [address] [place], [address] CBC W/Diff, Automatedon 12-12 PLT EST MOD DEC Normal ADEQ [facility] Comment on above: Result Comment: AMENDED REPORT 01/10/241950 PLT EST previously reported as: MOD DEC Performed By: #### L 100.0100, L500.2500 ####[facility] [address] [place], [address] Chest 1 View (Portable)on Chest 1 View (Portable) Normal [facility] Summary on 01-10-2024 Emergency Department Summary Normal [facility] M100.678on 01-10-2024 M100.678 Pending SARS-CoV-2 (COVID 19) Negative INFLUENZA A Negative INFLUENZA B Negative RSV PCR Negative Normal [facility] Comment on above: Performed By: #### M 100.678 ####[facility] [address] [place], [address] CBC W/Diff, Automatedon 12-12 Absolute Lymph 1.19 X10 3/uL Normal 0.83-4.51 [facility] Comment on above: Performed By: #### L 100.0100, L503.6030 ####[facility] [address] [place], [address] Absolute Neut 3.4 X10 3/uL Normal 2.0-7.7 [facility] Comment on above: Performed By: #### L 100.0100, L503.6030 ####[facility] [address] [place], [address] Basophils/100 WBC (Bld) 0.4 % Normal 0-1 [facility] Comment on above: Performed By: #### L 100.0100, L503.6030 ####[facility] [address] [place], [address] Eosinophils/100 WBC (Bld) 8.1 % High 0-5 [facility] Comment on above: Performed By: #### L 100.0100, L503.6030 ####[facility] [address] [place], [address] Erythrocyte distribution width (RBC) [Ratio] 14.0 % Normal 11.6-14.6 [facility] Comment on above: Performed By: #### L 100.0100, L503.6030 ####[facility] [address] [place], [address] Hematocrit (Bld) [Volume fraction] 29.9 % Low 40-54 [facility] Comment on above: Performed By: #### L 100.0100, L503.6030 ####[facility] [address] [place], [address] Hemoglobin (Bld) [Mass/Vol] 9.4 g/dL Low 13.0-16.5 [facility] Comment on above: Performed By: #### L 100.0100, L503.6030 ####[facility] [address] [place], [address] IG% 0.400 Normal 0.0-0.9 [facility] Comment on above: Result Comment: IG% - Immature Granulocytes (promyelocytes, myelocytes andmetamyelocytes) > 1% indicates that a LEFT SHIFT is Present. Performed By: #### L 100.0100, L503.6030 ####[facility] [address] [place], [address] Lymphocytes/100 WBC (Bld) 21.4 % Normal 19-41 [facility] Comment on above: Performed By: #### L 100.0100, L503.6030 ####[facility] [address] [place], [address] MCH (RBC) [Entitic mass] 30.3 pg Normal 27.0-32.0 [facility] Comment on above: Performed By: #### L 100.0100, L503.6030 ####[facility] [address] [place], [address] MCHC (RBC) [Mass/Vol] 31.4 g/dL Low 32-36 [facility] Comment on above: Performed By: #### L 100.0100, L503.6030 ####[facility] [address] [place], [address] MCV (RBC) [Entitic vol] 96.5 fL High 80-94 [facility] Comment on above: Performed By: #### L 100.0100, L503.6030 ####[facility] [address] [place], [address] Monocytes/100 WBC (Bld) 8.4 % Normal 0-10 [facility] Comment on above: Performed By: #### L 100.0100, L503.6030 ####[facility] [address] [place], [address] Neutrophils/100 WBC (Bld) 61.3 % Normal 47-70 [facility] Comment on above: Performed By: #### L 100.0100, L503.6030 ####[facility] [address] [place], [address] Nucleated RBC (Bld) [#/Vol] 0 10*3/uL Normal 0-5 [facility] Comment on above: Performed By: #### L 100.0100, L503.6030 ####[facility] [address] [place], [address] Platelet mean volume (Bld) [Entitic vol] 10.6 fL Normal 6.2-12.0 [facility] Comment on above: Performed By: #### L 100.0100, L503.6030 ####[facility] [address] [place], [address] Platelets (Bld) [#/Vol] 102 10*3/uL Low 150-450 [facility] Comment on above: Performed By: #### L 100.0100, L503.6030 ####[facility] [address] [place], [address] RBC (Bld) [#/Vol] 3.10 10*6/uL Low 4.6-6.2 [facility] Comment on above: Performed By: #### L 100.0100, L503.6030 ####[facility] [address] [place], [address] RDW SD 48.8 fl High 35.1-43.9 [facility] Comment on above: Performed By: #### L 100.0100, L503.6030 ####[facility] [address] [place], [address] WBC (Bld) [#/Vol] 5.6 10*3/uL Normal 4.4-11.0 [facility] Comment on above: Performed By: #### L 100.0100, L503.6030 ####[facility] [address] [place], [address] Comprehensive Metabolic Prof ilon 01-09-2024 Albumin [Mass/Vol] 3.4 g/dL Normal 3.2-5.0 [facility] Comment on above: Performed By: #### L 506.1000, L500.4050, L509.1000 ####[facility] [address] [place], [address] Albumin/Globulin [Mass ratio] 0.9 {ratio} Normal 0.9-2.4 [facility] Comment on above: Performed By: #### L 506.1000, L500.4050, L509.1000 ####[facility] [address] [place], [address] ALK P 68 U/L Normal 45-117 [facility] Comment on above: Performed By: #### L 506.1000, L500.4050, L509.1000 ####[facility] [address] [place], [address] ALT [Catalytic activity/Vol] 25 U/L Normal 16-61 [facility] Comment on above: Performed By: #### L 506.1000, L500.4050, L509.1000 ####[facility] [address] [place], [address] AST [Catalytic activity/Vol] 16 U/L Normal 15-37 [facility] Comment on above: Performed By: #### L 506.1000, L500.4050, L509.1000 ####[facility] [address] [place], [address] Bilirubin [Mass/Vol] 0.50 mg/dL Normal 0.20-1.00 [facility] Comment on above: Result Comment: For patients on eltrombopag therapy, use of Dimension [place] TBIL is not recommended. Performed By: #### L 506.1000, L500.4050, L509.1000 ####[facility] [address] [place], [address] BUN/CRE 37.2 RATIO High 10-20 [facility] Comment on above: Performed By: #### L 506.1000, L500.4050, L509.1000 ####[facility] [address] [place], [address] CA,Total 9.0 mg/dL Normal 8.5-10.1 [facility] Comment on above: Performed By: #### L 506.1000, L500.4050, L509.1000 ####[facility] [address] [place], [address] Chloride [Moles/Vol] 108 mmol/L High 98-107 [facility] Comment on above: Performed By: #### L 506.1000, L500.4050, L509.1000 ####[facility] [address] [place], [address] CO2 [Moles/Vol] 32.0 mmol/L Normal 21.0-32.0 [facility] Comment on above: Performed By: #### L 506.1000, L500.4050, L509.1000 ####[facility] [address] [place], [address] Creatinine [Mass/Vol] 2.42 mg/dL High 0.70-1.30 [facility] Comment on above: Result Comment: The validity of the calculated GFR GFRAA in patients over70 years has not been determined. Clinical correlation isessential. Performed By: #### L 506.1000, L500.4050, L509.1000 ####[facility] [address] [place], [address] EST GFR - AA 33 mL/min Low >60 [facility] Comment on above: Result Comment: Afri can [place] GFR Calc Performed By: #### L 506.1000, L500.4050, L509.1000 ####[facility] [address] [place], [address] GAP 3 Low 5-15 [facility] Comment on above: Performed By: #### L 506.1000, L500.4050, L509.1000 ####[facility] [address] [place], [address] GFR/1.73 sq M.predicted among non-blacks MDRD (S/P/Bld) [Vol rate/Area] 27 mL/min/{1.73_m2} Low >60 [facility] Comment on above: Result Comment: Non- GFR Calc Performed By: #### L 506.1000, L500.4050, L509.1000 ####[facility] [address] [place], [address] Globulin (S) [Mass/Vol] 3.6 g/dL Normal 2.2-4.2 [facility] Comment on above: Performed By: #### L 506.1000, L500.4050, L509.1000 ####[facility] [address] [place], [address] Glucose [Mass/Vol] 79 mg/dL Normal 74-106 [facility] Comment on above: Performed By: #### L 506.1000, L500.4050, L509.1000 ####[facility] [address] [place], [address] Potassium [Moles/Vol] 4.5 mmol/L Normal 3.5-5.1 [facility] Comment on above: Performed By: #### L 506.1000, L500.4050, L509.1000 ####[facility] [address] [place], [address] Sodium [Moles/Vol] 143 mmol/L Normal 136-145 [facility] Comment on above: Performed By: #### L 506.1000, L500.4050, L509.1000 ####[facility] [address] [place], [address] T PROT 7.0 g/dL Normal 6.4-8.2 [facility] Comment on above: Performed By: #### L 506.1000, L500.4050, L509.1000 ####[facility] [address] [place], [address] Urea nitrogen [Mass/Vol] 90 mg/dL High 7-18 [facility] Comment on above: Performed By: #### L 506.1000, L500.4050, L509.1000 ####[facility] [address] [place], [address] Gastroenterology Visit Repor ton 01-09-2024 Gastroenterology Visit Report Normal [facility] Iron+Iron Binding Capacityon 01-09-2024 Iron [Mass/Vol] 75 ug/dL Normal 65-175 [facility] Comment on above: Performed By: #### L 100.0100, L503.6030 ####[facility] [address] [place], [address] IRON SATURATION 26.0 Normal 15.0-55.0 [facility] [facility] Comment on above: Performed By: #### L 100.0100, L503.6030 ####[facility] [address] [place], [address] TIBC 289 ug/dL Normal 250-450 [facility] Comment on above: Performed By: #### L 100.0100, L503.6030 ####[facility] [address] [place], [address] PTHINon 01-09-2024 PTH 196.4 pg/mL High 18.4-80.1 [facility] Comment on above: Performed By: #### L 506.1000, L500.4050, L509.1000 ####[facility] [address] [place], [address] Vitamin D,25 Hydroxyon 01-08 Vitamin D 25-OH 33.8 ng/mL Normal [facility] Comment on above: Result Comment: Celia min D 25(OH) Status Range Deficiency <20 ng/mL (50nmol/L) Insufficiency 20 - 30 ng/mL (50 - 75 nmol/L) Sufficiency 30 - 100 ng/mL (75 - 250 nmol/L) Toxicity >100 ng/mL (>250 nmol/L) Performed By: #### L 506.1000, L500.4050, L509.1000 ####[facility] [address] [place], [address] L5000.0010on 01-01-2024 Natriuretic peptide B (Bld) [Mass/Vol] 57.9 pg/mL Normal 0.0-100.0 [facility] Comment on above: Order Comment: Speci men Comment: A duplicate report has been generateddue to demographicSpecimen Comment: updates. Result Comment: Siem LookMedBookIA OneSpotaur XP methodologyPerformed at: - [facility] [address] [id number] Director: Tanmay Damon PhD, Phone: [phone] Performed By: #### L 100.0100, L501.4020, L5000.0010, L500.2500 ####[facility] [address] [place], [address] EGD Reporton 12-31-2023 EGD Report Normal [facility] Bedside Glucoseon 12-28-2023 FINGERSTICK GLU 192 mg/dL High 74-106 [facility] Comment on above: Result Comment: MYKE GEMENT OF PATIENT CARE PER NURSING PROTOCOL Performed By: #### L 501.080 ####[facility] [address] [place], [address] FINGERSTICK GLU 116 mg/dL High 74-106 [facility] Comment on above: Result Comment: MYKE GEMENT OF PATIENT CARE PER NURSING PROTOCOL Performed By: #### L 501.080 ####[facility] [address] [place], [address] CBC W/Diff, Automatedon 12-10 Absolute Lymph 0.92 X10 3/uL Normal 0.83-4.51 [facility] Comment on above: Performed By: #### L 100.0100 ####[facility] [address] [place], [address] Absolute Neut 3.8 X10 3/uL Normal 2.0-7.7 [facility] Comment on above: Performed By: #### L 100.0100 ####[facility] [address] [place], [address] Basophils/100 WBC (Bld) 0.7 % Normal 0-1 [facility] Comment on above: Performed By: #### L 100.0100 ####[facility] [address] [place], [address] Eosinophils/100 WBC (Bld) 3.8 % Normal 0-5 [facility] Comment on above: Performed By: #### L 100.0100 ####[facility] [address] [place], [address] Erythrocyte distribution width (RBC) [Ratio] 13.6 % Normal 11.6-14.6 [facility] Comment on above: Performed By: #### L 100.0100 ####[facility] [address] [place], [address] Hematocrit (Bld) [Volume fraction] 23.3 % Low 40-54 [facility] Comment on above: Performed By: #### L 100.0100 ####[facility] [address] [place], [address] Hemoglobin (Bld) [Mass/Vol] 7.7 g/dL Low 13.0-16.5 [facility] Comment on above: Performed By: #### L 100.0100 ####[facility] [address] [place], [address] IG% 0.400 Normal 0.0-0.9 [facility] Comment on above: Result Comment: IG% - Immature Granulocytes (promyelocytes, myelocytes andmetamyelocytes) > 1% indicates that a LEFT SHIFT is Present. Performed By: #### L 100.0100 ####[facility] [address] [place], [address] Lymphocytes/100 WBC (Bld) 16.5 % Low 19-41 [facility] Comment on above: Performed By: #### L 100.0100 ####[facility] [address] [place], [address] MCH (RBC) [Entitic mass] 31.0 pg Normal 27.0-32.0 [facility] Comment on above: Performed By: #### L 100.0100 ####[facility] [address] [place], [address] MCHC (RBC) [Mass/Vol] 33.0 g/dL Normal 32-36 [facility] Comment on above: Performed By: #### L 100.0100 ####[facility] [address] [place], [address] MCV (RBC) [Entitic vol] 94.0 fL Normal 80-94 [facility] Comment on above: Performed By: #### L 100.0100 ####[facility] [address] [place], [address] Monocytes/100 WBC (Bld) 9.7 % Normal 0-10 [facility] Comment on above: Performed By: #### L 100.0100 ####[facility] [address] [place], [address] Neutrophils/100 WBC (Bld) 68.9 % Normal 47-70 [facility] Comment on above: Performed By: #### L 100.0100 ####[facility] [address] [place], [address] Nucleated RBC (Bld) [#/Vol] 0 10*3/uL Normal 0-5 [facility] Comment on above: Performed By: #### L 100.0100 ####[facility] [address] [place], [address] Platelet mean volume (Bld) [Entitic vol] 11.3 fL Normal 6.2-12.0 [facility] Comment on above: Performed By: #### L 100.0100 ####[facility] [address] [place], [address] Platelets (Bld) [#/Vol] 108 10*3/uL Low 150-450 [facility] Comment on above: Performed By: #### L 100.0100 ####[facility] [address] [place], [address] RBC (Bld) [#/Vol] 2.48 10*6/uL Low 4.6-6.2 [facility] Comment on above: Performed By: #### L 100.0100 ####[facility] [address] [place], [address] RDW SD 46.5 fl High 35.1-43.9 [facility] Comment on above: Performed By: #### L 100.0100 ####[facility] [address] [place], [address] WBC (Bld) [#/Vol] 5.6 10*3/uL Normal 4.4-11.0 [facility] Comment on above: Performed By: #### L 100.0100 ####[facility] [address] [place], [address] Discharge Instructionon 12-10 Discharge Instruction Normal [facility] Bedside Glucoseon 12-27-2023 FINGERSTICK GLU 159 mg/dL High 74-106 [facility] Comment on above: Result Comment: MYKE GEMENT OF PATIENT CARE PER NURSING PROTOCOL Performed By: #### L 501.080 ####[facility] [address] [place], [address] FINGERSTICK GLU 168 mg/dL High 74-106 [facility] Comment on above: Result Comment: MYKE GEMENT OF PATIENT CARE PER NURSING PROTOCOL Performed By: #### L 501.080 ####[facility] [address] [place], [address] FINGERSTICK GLU 155 mg/dL High 74-106 [facility] Comment on above: Result Comment: MYKE GEMENT OF PATIENT CARE PER NURSING PROTOCOL Performed By: #### L 501.080 ####[facility] [address] [place], [address] FINGERSTICK GLU 143 mg/dL High 74-106 [facility] Comment on above: Result Comment: MYKE GEMENT OF PATIENT CARE PER NURSING PROTOCOL Performed By: #### L 501.080 ####[facility] [address] [place], [address] FINGERSTICK GLU 193 mg/dL High 74-106 [facility] Comment on above: Result Comment: MYKE GEMENT OF PATIENT CARE PER NURSING PROTOCOL Performed By: #### L 501.080 ####[facility] [address] [place], [address] CBC W/Diff, Automatedon 12-10 Absolute Lymph 1.13 X10 3/uL Normal 0.83-4.51 [facility] Comment on above: Performed By: #### L 100.0100 ####[facility] [address] [place], [address] Absolute Neut 4.0 X10 3/uL Normal 2.0-7.7 [facility] Comment on above: Performed By: #### L 100.0100 ####[facility] [address] [place], [address] Basophils/100 WBC (Bld) 0.5 % Normal 0-1 [facility] Comment on above: Performed By: #### L 100.0100 ####[facility] [address] [place], [address] Eosinophils/100 WBC (Bld) 4.6 % Normal 0-5 [facility] Comment on above: Performed By: #### L 100.0100 ####[facility] [address] [place], [address] Erythrocyte distribution width (RBC) [Ratio] 13.6 % Normal 11.6-14.6 [facility] Comment on above: Performed By: #### L 100.0100 ####[facility] [address] [place], [address] Hematocrit (Bld) [Volume fraction] 24.1 % Low 40-54 [facility] Comment on above: Performed By: #### L 100.0100 ####[facility] [address] [place], [address] Hemoglobin (Bld) [Mass/Vol] 7.8 g/dL Low 13.0-16.5 [facility] Comment on above: Performed By: #### L 100.0100 ####[facility] [address] [place], [address] IG% 0.300 Normal 0.0-0.9 [facility] Comment on above: Result Comment: IG% - Immature Granulocytes (promyelocytes, myelocytes andmetamyelocytes) > 1% indicates that a LEFT SHIFT is Present. Performed By: #### L 100.0100 ####[facility] [address] [place], [address] Lymphocytes/100 WBC (Bld) 19.1 % Normal 19-41 [facility] Comment on above: Performed By: #### L 100.0100 ####[facility] [address] [place], [address] MCH (RBC) [Entitic mass] 30.7 pg Normal 27.0-32.0 [facility] Comment on above: Performed By: #### L 100.0100 ####[facility] [address] [place], [address] MCHC (RBC) [Mass/Vol] 32.4 g/dL Normal 32-36 [facility] Comment on above: Performed By: #### L 100.0100 ####[facility] [address] [place], [address] MCV (RBC) [Entitic vol] 94.9 fL High 80-94 [facility] Comment on above: Performed By: #### L 100.0100 ####[facility] [address] [place], [address] Monocytes/100 WBC (Bld) 7.8 % Normal 0-10 [facility] Comment on above: Performed By: #### L 100.0100 ####[facility] [address] [place], [address] Neutrophils/100 WBC (Bld) 67.7 % Normal 47-70 [facility] Comment on above: Performed By: #### L 100.0100 ####[facility] [address] [place], [address] Nucleated RBC (Bld) [#/Vol] 0 10*3/uL Normal 0-5 [facility] Comment on above: Performed By: #### L 100.0100 ####[facility] [address] [place], [address] Platelet mean volume (Bld) [Entitic vol] 11.6 fL Normal 6.2-12.0 [facility] Comment on above: Performed By: #### L 100.0100 ####[facility] [address] [place], [address] Platelets (Bld) [#/Vol] 119 10*3/uL Low 150-450 [facility] Comment on above: Performed By: #### L 100.0100 ####[facility] [address] [place], [address] RBC (Bld) [#/Vol] 2.54 10*6/uL Low 4.6-6.2 [facility] Comment on above: Performed By: #### L 100.0100 ####[facility] [address] [place], [address] RDW SD 46.5 fl High 35.1-43.9 [facility] Comment on above: Performed By: #### L 100.0100 ####[facility] [address] [place], [address] WBC (Bld) [#/Vol] 5.9 10*3/uL Normal 4.4-11.0 [facility] Comment on above: Performed By: #### L 100.0100 ####[facility] [address] [place], [address] Comprehensive Metabolic Prof ilon 12-27-2023 Albumin [Mass/Vol] 3.0 g/dL Low 3.2-5.0 [facility] Comment on above: Performed By: #### L 500.4050 ####[facility] [address] [place], [address] Albumin/Globulin [Mass ratio] 0.9 {ratio} Normal 0.9-2.4 [facility] Comment on above: Performed By: #### L 500.4050 ####[facility] [address] [place], [address] ALK P 62 U/L Normal 45-117 [facility] Comment on above: Performed By: #### L 500.4050 ####[facility] [address] [place], [address] ALT [Catalytic activity/Vol] 19 U/L Normal 16-61 [facility] Comment on above: Performed By: #### L 500.4050 ####[facility] [address] [place], [address] AST [Catalytic activity/Vol] 15 U/L Normal 15-37 [facility] Comment on above: Performed By: #### L 500.4050 ####[facility] [address] [place], [address] Bilirubin [Mass/Vol] 0.60 mg/dL Normal 0.20-1.00 [facility] Comment on above: Result Comment: For patients on eltrombopag therapy, use of Dimension [place] TBIL is not recommended. Performed By: #### L 500.4050 ####[facility] [address] [place], [address] BUN/CRE 53.3 RATIO High 10-20 [facility] Comment on above: Performed By: #### L 500.4050 ####[facility] [address] [place], [address] CA,Total 9.0 mg/dL Normal 8.5-10.1 [facility] Comment on above: Performed By: #### L 500.4050 ####[facility] [address] [place], [address] Chloride [Moles/Vol] 107 mmol/L Normal 98-107 [facility] Comment on above: Performed By: #### L 500.4050 ####[facility] [address] [place], [address] CO2 [Moles/Vol] 30.0 mmol/L Normal 21.0-32.0 [facility] Comment on above: Performed By: #### L 500.4050 ####[facility] [address] [place], [address] Creatinine [Mass/Vol] 2.25 mg/dL High 0.70-1.30 [facility] Comment on above: Result Comment: The validity of the calculated GFR GFRAA in patients over70 years has not been determined. Clinical correlation isessential. Performed By: #### L 500.4050 ####[facility] [address] [place], [address] ECRCL 24.04 ml/min Normal [facility] Comment on above: Performed By: #### L 500.4050 ####[facility] [address] [place], [address] EST GFR - AA 36 mL/min Low >60 [facility] Comment on above: Result Comment: Afri can [place] GFR Calc Performed By: #### L 500.4050 ####[facility] [address] [place], [address] GAP 6 Normal 5-15 [facility] Comment on above: Performed By: #### L 500.4050 ####[facility] [address] [place], [address] GFR/1.73 sq M.predicted among non-blacks MDRD (S/P/Bld) [Vol rate/Area] 30 mL/min/{1.73_m2} Low >60 [facility] Comment on above: Result Comment: Non- GFR Calc Performed By: #### L 500.4050 ####[facility] [address] [place], [address] Globulin (S) [Mass/Vol] 3.4 g/dL Normal 2.2-4.2 [facility] Comment on above: Performed By: #### L 500.4050 ####[facility] [address] [place], [address] Glucose [Mass/Vol] 98 mg/dL Normal 74-106 [facility] Comment on above: Performed By: #### L 500.4050 ####[facility] [address] [place], [address] Potassium [Moles/Vol] 4.0 mmol/L Normal 3.5-5.1 [facility] Comment on above: Performed By: #### L 500.4050 ####[facility] [address] [place], [address] Sodium [Moles/Vol] 142 mmol/L Normal 136-145 [facility] Comment on above: Performed By: #### L 500.4050 ####[facility] [address] [place], [address] T PROT 6.4 g/dL Normal 6.4-8.2 [facility] Comment on above: Performed By: #### L 500.4050 ####[facility] [address] [place], [address] Urea nitrogen [Mass/Vol] 120 mg/dL Invalid Interpretation Code 7-18 [facility] Comment on above: Result Comment: Crit ical Result(s) Called at: 06:52:02 12/27/2023 by:Didier Donovan. Results read back by same. Performed By: #### L 500.4050 ####[facility] [address] [place], [address] Ferritinon 12-27-2023 Ferritin [Mass/Vol] 32 ng/mL Normal 26-388 [facility] Comment on above: Performed By: #### L 503.6550, L503.6030 ####[facility] [address] [place], [address] H Pylori (initial)on 024 H Pylori (initial) Normal [facility] Comment on above: Performed By: #### P H.PYLORI ####[facility] [address] [place], [address] HH, Hemoglobin AND Hematocri ton 12-27-2023 Hematocrit (Bld) [Volume fraction] 24.3 % Low 40-54 [facility] Comment on above: Performed By: #### L 100.0600 ####[facility] [address] [place], [address] Hemoglobin (Bld) [Mass/Vol] 7.9 g/dL Low 13.0-16.5 [facility] Comment on above: Performed By: #### L 100.0600 ####[facility] [address] [place], [address] Hematocrit (Bld) [Volume fraction] 24.1 % Low 40-54 [facility] Comment on above: Performed By: #### L 100.0600 ####[facility] [address] [place], [address] Hemoglobin (Bld) [Mass/Vol] 7.8 g/dL Low 13.0-16.5 [facility] Comment on above: Performed By: #### L 100.0600 ####[facility] [address] [place], [address] Hemoglobin A1con 12-27-2023 HbA1c (Bld) [Mass fraction] 5.7 % High 3.8-5.6 [facility] Comment on above: Result Comment: Norm al < 5.7 % Prediabetic 5.7 - 6.4 % Diabetic >or= 6.5 % Please note range changes. Performed By: #### L 5019924 ####[facility] [address] [place], [address] Iron+Iron Binding Capacityon 12-27-2023 Iron [Mass/Vol] 43 ug/dL Low 65-175 [facility] Comment on above: Performed By: #### L 503.6550, L503.6030 ####[facility] [address] [place], [address] IRON SATURATION 16.3 Normal 15.0-55.0 [facility] Comment on above: Performed By: #### L 503.6550, L503.6030 ####[facility] [address] [place], [address] TIBC 264 ug/dL Normal 250-450 [facility] Comment on above: Performed By: #### L 503.6550, L503.6030 ####[facility] [address] [place], [address] MR/POSTOP.ANEon 12-27-2023 MR/POSTOP.ANE Normal [facility] MR/ORQMSNBM1cg 12-27-2023 MR/POSTOPAN2 Normal [facility] Surgery Specimen Level Riky 12-27-2023 Surgery Specimen Level IV Normal [facility] Comment on above: Performed By: #### P SUIV ####[facility] [address] [place], [address] 12 Lead EKGon 12-26-2023 12 Lead EKG Normal [facility] BRCon 12-26-2023 RC Normal [facility] Comment on above: Result Comment: [id number] AN RC TRANSFUSED 12/28/23 1134 Performed By: #### B RC ####[facility] [address] [place], [address] Basic Metabolic Profile (BMP )on 12-26-2023 BUN/CRE 45.8 RATIO High 10-20 [facility] Comment on above: Order Comment: 'TROP ' Serial specimen #1, #2 or #3: 1 Performed By: #### L 100.0100, L501.4020, L5000.0010, L500.2500 ####[facility] [address] [place], [address] CA,Total 9.1 mg/dL Normal 8.5-10.1 [facility] Comment on above: Order Comment: 'TROP ' Serial specimen #1, #2 or #3: 1 Performed By: #### L 100.0100, L501.4020, L5000.0010, L500.2500 ####[facility] [address] [place], [address] Chloride [Moles/Vol] 108 mmol/L High 98-107 [facility] Comment on above: Order Comment: 'TROP ' Serial specimen #1, #2 or #3: 1 Performed By: #### L 100.0100, L501.4020, L5000.0010, L500.2500 ####[facility] [address] [place], [address] CO2 [Moles/Vol] 30.0 mmol/L Normal 21.0-32.0 [facility] Comment on above: Order Comment: 'TROP ' Serial specimen #1, #2 or #3: 1 Performed By: #### L 100.0100, L501.4020, L5000.0010, L500.2500 ####[facility] [address] [place], [address] Creatinine [Mass/Vol] 2.75 mg/dL High 0.70-1.30 [facility] Comment on above: Order Comment: 'TROP ' Serial specimen #1, #2 or #3: 1 Result Comment: The validity of the calculated GFR GFRAA in patients over70 years has not been determined. Clinical correlation isessential. Performed By: #### L 100.0100, L501.4020, L5000.0010, L500.2500 ####[facility] [address] [place], [address] ECRCL 19.84 ml/min Normal [facility] Comment on above: Order Comment: 'TROP ' Serial specimen #1, #2 or #3: 1 Performed By: #### L 100.0100, L501.4020, L5000.0010, L500.2500 ####[facility] [address] [facility] [address] EST GFR - AA 28 mL/min Low >60 [facility] Comment on above: Order Comment: 'TROP ' Serial specimen #1, #2 or #3: 1 Result Comment: Afri can [place] GFR Calc Performed By: #### L 100.0100, L501.4020, L5000.0010, L500.2500 ####[facility] [address] [facility] [address] GAP 7 Normal 5-15 [facility] Comment on above: Order Comment: 'TROP ' Serial specimen #1, #2 or #3: 1 Performed By: #### L 100.0100, L501.4020, L5000.0010, L500.2500 ####[facility] [address] [place], [address] GFR/1.73 sq M.predicted among non-blacks MDRD (S/P/Bld) [Vol rate/Area] 24 mL/min/{1.73_m2} Low >60 [facility] Comment on above: Order Comment: 'TROP ' Serial specimen #1, #2 or #3: 1 Result Comment: Non- GFR Calc Performed By: #### L 100.0100, L501.4020, L5000.0010, L500.2500 ####[facility] [address] [facility] [address] Glucose [Mass/Vol] 169 mg/dL High 74-106 [facility] Comment on above: Order Comment: 'TROP ' Serial specimen #1, #2 or #3: 1 Result Comment: Fast ing Glucose result greater than or equal to 126 mg/dLsuggests DIABETES MELLITUS per A.D.A. criteria. Performed By: #### L 100.0100, L501.4020, L5000.0010, L500.2500 ####[facility] [address] [place], [address] Potassium [Moles/Vol] 4.6 mmol/L Normal 3.5-5.1 [facility] Comment on above: Order Comment: 'TROP ' Serial specimen #1, #2 or #3: 1 Result Comment: Slig ht Hemolysis, Result may be falsely increased. Performed By: #### L 100.0100, L501.4020, L5000.0010, L500.2500 ####[facility] [address] [place], [address] Sodium [Moles/Vol] 144 mmol/L Normal 136-145 [facility] Comment on above: Order Comment: 'TROP ' Serial specimen #1, #2 or #3: 1 Performed By: #### L 100.0100, L501.4020, L5000.0010, L500.2500 ####[facility] [address] [place], [address] Urea nitrogen [Mass/Vol] 126 mg/dL Invalid Interpretation Code 7-18 [facility] Comment on above: Order Comment: 'TROP ' Serial specimen #1, #2 or #3: 1 Result Comment: Crit ical Result(s) Called at: 14:49:19 12/26/2023 by: JEANETTE TO JENNIFER LOPEZ. Results read back by same. Performed By: #### L 100.0100, L501.4020, L5000.0010, L500.2500 ####[facility] [address] [place], [address] CBC W/Diff, Automatedon 10- Absolute Lymph 0.86 X10 3/uL Normal 0.83-4.51 [facility] Comment on above: Performed By: #### L 100.0100, L501.4020, L5000.0010, L500.2500 ####[facility] [address] [place], [address] Absolute Neut 4.0 X10 3/uL Normal 2.0-7.7 [facility] Comment on above: Performed By: #### L 100.0100, L501.4020, L5000.0010, L500.2500 ####[facility] [address] [place], [address] Basophils/100 WBC (Bld) 0.5 % Normal 0-1 [facility] Comment on above: Performed By: #### L 100.0100, L501.4020, L5000.0010, L500.2500 ####[facility] [address] [place], [address] Eosinophils/100 WBC (Bld) 4.1 % Normal 0-5 [facility] Comment on above: Performed By: #### L 100.0100, L501.4020, L5000.0010, L500.2500 ####[facility] [address] [place], [address] Erythrocyte distribution width (RBC) [Ratio] 13.8 % Normal 11.6-14.6 [facility] Comment on above: Performed By: #### L 100.0100, L501.4020, L5000.0010, L500.2500 ####[facility] [address] [place], [address] Hematocrit (Bld) [Volume fraction] 25.9 % Low 40-54 [facility] Comment on above: Performed By: #### L 100.0100, L501.4020, L5000.0010, L500.2500 ####[facility] [address] [place], [address] Hemoglobin (Bld) [Mass/Vol] 8.3 g/dL Low 13.0-16.5 [facility] Comment on above: Performed By: #### L 100.0100, L501.4020, L5000.0010, L500.2500 ####[facility] [address] [place], [address] IG% 0.500 Normal 0.0-0.9 [facility] Comment on above: Result Comment: IG% - Immature Granulocytes (promyelocytes, myelocytes andmetamyelocytes) > 1% indicates that a LEFT SHIFT is Present. Performed By: #### L 100.0100, L501.4020, L5000.0010, L500.2500 ####[facility] [address] [place], [address] Lymphocytes/100 WBC (Bld) 15.4 % Low 19-41 [facility] Comment on above: Performed By: #### L 100.0100, L501.4020, L5000.0010, L500.2500 ####[facility] [address] [place], [address] MCH (RBC) [Entitic mass] 30.6 pg Normal 27.0-32.0 [facility] Comment on above: Performed By: #### L 100.0100, L501.4020, L5000.0010, L500.2500 ####[facility] [address] [place], [address] MCHC (RBC) [Mass/Vol] 32.0 g/dL Normal 32-36 [facility] Comment on above: Performed By: #### L 100.0100, L501.4020, L5000.0010, L500.2500 ####[facility] [address] [place], [address] MCV (RBC) [Entitic vol] 95.6 fL High 80-94 [facility] Comment on above: Performed By: #### L 100.0100, L501.4020, L5000.0010, L500.2500 ####[facility] [address] [place], [address] Monocytes/100 WBC (Bld) 7.5 % Normal 0-10 [facility] Comment on above: Performed By: #### L 100.0100, L501.4020, L5000.0010, L500.2500 ####[facility] [address] [place], [address] Neutrophils/100 WBC (Bld) 72.0 % High 47-70 [facility] Comment on above: Performed By: #### L 100.0100, L501.4020, L5000.0010, L500.2500 ####[facility] [address] [place], [address] Nucleated RBC (Bld) [#/Vol] 0 10*3/uL Normal 0-5 [facility] Comment on above: Performed By: #### L 100.0100, L501.4020, L5000.0010, L500.2500 ####[facility] [address] [place], [address] Platelet mean volume (Bld) [Entitic vol] 11.8 fL Normal 6.2-12.0 [facility] Comment on above: Performed By: #### L 100.0100, L501.4020, L5000.0010, L500.2500 ####[facility] [address] [place], [address] Platelets (Bld) [#/Vol] 124 10*3/uL Low 150-450 [facility] Comment on above: Performed By: #### L 100.0100, L501.4020, L5000.0010, L500.2500 ####[facility] [address] [place], [address] RBC (Bld) [#/Vol] 2.71 10*6/uL Low 4.6-6.2 [facility] Comment on above: Performed By: #### L 100.0100, L501.4020, L5000.0010, L500.2500 ####[facility] [address] [place], [address] RDW SD 47.5 fl High 35.1-43.9 [facility] Comment on above: Performed By: #### L 100.0100, L501.4020, L5000.0010, L500.2500 ####[facility] [address] [place], [address] WBC (Bld) [#/Vol] 5.6 10*3/uL Normal 4.4-11.0 [facility] Comment on above: Performed By: #### L 100.0100, L501.4020, L5000.0010, L500.2500 ####[facility] [address] [place], [address] Chest 1 View (Portable)on Chest 1 View (Portable) Normal [facility] Emergency Department Summary on 12-26-2023 Emergency Department Summary Normal [facility] H AND P Exam - Hospitaliston 12-26-2023 H&P Exam - Hospitalist Normal [facility] HH, Hemoglobin AND Hematocri ton 12-26-2023 Hematocrit (Bld) [Volume fraction] 23.5 % Low 40-54 [facility] Comment on above: Performed By: #### L 100.0600 ####[facility] [address] [place], [address] Hemoglobin (Bld) [Mass/Vol] 7.6 g/dL Low 13.0-16.5 [facility] Comment on above: Performed By: #### L 100.0600 ####[facility] [address] [place], [address] Hematocrit (Bld) [Volume fraction] 26.4 % Low 40-54 [facility] Comment on above: Performed By: #### L 100.0600 ####[facility] [address] [place], [address] Hemoglobin (Bld) [Mass/Vol] 8.3 g/dL Low 13.0-16.5 [facility] Comment on above: Performed By: #### L 100.0600 ####[facility] [address] [place], [address] L501.4020on 12-26-2023 TROPONIN-I HS 30 pg/mL Normal 3.0-78.0 [facility] Comment on above: Order Comment: 'TROP ' Serial specimen #1, #2 or #3: 1 Result Comment: Plea se Note: New Test Units and Gender Specific Reference Ranges. For more information see Policy Stat Procedure [place] High Sensitivity Troponin (TNIH) and attachments. Performed By: #### L 100.0100, L501.4020, L5000.0010, L500.2500 ####[facility] [address] [place], [address] Liver Profileon 12-26-2023 Albumin [Mass/Vol] 3.1 g/dL Low 3.2-5.0 [facility] Comment on above: Performed By: #### L 500.3400, L501.5200, L501.2300, L300.3900 ####[facility] [address] [place], [address] ALK P 61 U/L Normal 45-117 [facility] Comment on above: Performed By: #### L 500.3400, L501.5200, L501.2300, L300.3900 ####[facility] [address] [place], [address] ALT [Catalytic activity/Vol] 18 U/L Normal 16-61 [facility] Comment on above: Performed By: #### L 500.3400, L501.5200, L501.2300, L300.3900 ####[facility] [address] [place], [address] AST [Catalytic activity/Vol] 20 U/L Normal 15-37 [facility] Comment on above: Result Comment: Slig ht Hemolysis, Result may be falsely increased. Performed By: #### L 500.3400, L501.5200, L501.2300, L300.3900 ####[facility] [address] [place], [address] Bilirubin [Mass/Vol] 0.30 mg/dL Normal 0.20-1.00 [facility] Comment on above: Result Comment: For patients on eltrombopag therapy, use of Dimension [place] TBIL is not recommended. Performed By: #### L 500.3400, L501.5200, L501.2300, L300.3900 ####[facility] [address] [place], [address] Bilirubin.direct [Mass/Vol] 0.10 mg/dL Normal 0.00-0.30 [facility] Comment on above: Performed By: #### L 500.3400, L501.5200, L501.2300, L300.3900 ####[facility] [address] [place], [address] Globulin (S) [Mass/Vol] 3.6 g/dL Normal 2.2-4.2 [facility] Comment on above: Performed By: #### L 500.3400, L501.5200, L501.2300, L300.3900 ####[facility] [address] [place], [address] T PROT 6.7 g/dL Normal 6.4-8.2 [facility] Comment on above: Performed By: #### L 500.3400, L501.5200, L501.2300, L300.3900 ####[facility] [address] [place], [address] MR/CON.PCM.GIon 12-26-2023 MR/CON.PCM.GI Normal [facility] Magnesiumon 12-26-2023 Magnesium [Mass/Vol] 1.5 mg/dL Low 1.6-2.6 [facility] Comment on above: Result Comment: Slig ht Hemolysis, Result may be falsely increased. Performed By: #### L 500.3400, L501.5200, L501.2300, L300.3900 ####[facility] [address] [place], [address] Phosphoruson 12-26-2023 Phosphate [Mass/Vol] 3.8 mg/dL Normal 2.5-4.9 [facility] Comment on above: Performed By: #### L 500.3400, L501.5200, L501.2300, L300.3900 ####[facility] [address] [place], [address] Prothrombin Time w/INRon INR Coag (PPP) [Relative time] 1.1 {INR} Normal [facility] Comment on above: Performed By: #### L 500.3400, L501.5200, L501.2300, L300.3900 ####[facility] [address] [place], [address] PT Coag (PPP) [Time] 14.3 s Normal 11.7-14.9 [facility] Comment on above: Performed By: #### L 500.3400, L501.5200, L501.2300, L300.3900 ####[facility] [address] [place], [address] Type AND Screenon 12-26-2023 Ab SCREEN GEL Negative Normal [facility] Comment on above: Order Comment: HGI Performed By: #### B TS ####[facility] [address] [place], [address] Basic Metabolic Profile (BMP )on 12-13-2023 BUN/CRE 30.0 RATIO High 10-20 [facility] Comment on above: Order Comment: CC: Cole HERNANDEZ Performed By: #### L 503.6030, L500.2500 ####[facility] [address] [place], [address] CA,Total 9.0 mg/dL Normal 8.5-10.1 [facility] Comment on above: Order Comment: CC: Cole HERNANDEZ Performed By: #### L 503.6030, L500.2500 ####[facility] [address] [place], [address] Chloride [Moles/Vol] 110 mmol/L High 98-107 [facility] Comment on above: Order Comment: CC: Cole HERNANDEZ Performed By: #### L 503.6030, L500.2500 ####[facility] [address] [place], [address] CO2 [Moles/Vol] 28.0 mmol/L Normal 21.0-32.0 [facility] Comment on above: Order Comment: CC: Cole HERNANDEZ Performed By: #### L 503.6030, L500.2500 ####[facility] [address] [place], [address] Creatinine [Mass/Vol] 2.37 mg/dL High 0.70-1.30 [facility] Comment on above: Order Comment: CC: Cole HERNANDEZ Result Comment: The validity of the calculated GFR GFRAA in patients over70 years has not been determined. Clinical correlation isessential. Performed By: #### L 503.6030, L500.2500 ####[facility] [address] [place], [address] EST GFR - AA 34 mL/min Low >60 [facility] Comment on above: Order Comment: CC: Cole HERNANDEZ Result Comment: Afri can [place] GFR Calc Performed By: #### L 503.6030, L500.2500 ####[facility] [address] [place], [address] GAP 6 Normal 5-15 [facility] Comment on above: Order Comment: CC: Cole HERNANDEZ Performed By: #### L 503.6030, L500.2500 ####[facility] [address] [place], [address] GFR/1.73 sq M.predicted among non-blacks MDRD (S/P/Bld) [Vol rate/Area] 28 mL/min/{1.73_m2} Low >60 [facility] Comment on above: Order Comment: CC: Cole HERNANDEZ Result Comment: Non- GFR Calc Performed By: #### L 503.6030, L500.2500 ####[facility] [address] [place], [address] Glucose [Mass/Vol] 88 mg/dL Normal 74-106 [facility] Comment on above: Order Comment: CC: Cole HERNANDEZ Performed By: #### L 503.6030, L500.2500 ####[facility] [address] [place], [address] Potassium [Moles/Vol] 4.8 mmol/L Normal 3.5-5.1 [facility] Comment on above: Order Comment: CC: Cole HERNANDEZ Performed By: #### L 503.6030, L500.2500 ####[facility] [address] [place], [address] Sodium [Moles/Vol] 144 mmol/L Normal 136-145 [facility] Comment on above: Order Comment: CC: Cole HERNANDEZ Performed By: #### L 503.6030, L500.2500 ####[facility] [address] [place], [address] Urea nitrogen [Mass/Vol] 71 mg/dL High 7-18 [facility] Comment on above: Order Comment: CC: Cole HERNANDEZ Performed By: #### L 503.6030, L500.2500 ####[facility] [address] [place], [address] BUN Normal 7-18 [facility] Comment on above: Order Comment: Order Date: 11/23/23Order Info: 666- - BMP Result Comment: DR. WASHBURN ORDERED BMP TOO Performed By: #### L 500.2500, L100.0100 ####[facility] [address] [place], [address] BUN/CRE Normal 10-20 [facility] Comment on above: Order Comment: Order Date: 11/23/23Order Info: 06- - BMP Result Comment: DR. WASHBURN ORDERED BMP TOO Performed By: #### L 500.2500, L100.0100 ####[facility] [address] [place], [address] CA,Total Normal 8.5-10.1 [facility] Comment on above: Order Comment: Order Date: 11/23/23Order Info: 06- - BMP Result Comment: DR. WASHBURN ORDERED BMP TOO Performed By: #### L 500.2500, L100.0100 ####[facility] [address] [place], [address] CL Normal 98-107 [facility] Comment on above: Order Comment: Order Date: 11/23/23Order Info: 06- - BMP Result Comment: DR. WASHBURN ORDERED BMP TOO Performed By: #### L 500.2500, L100.0100 ####[facility] [address] [place], [address] CO2 Normal 21.0-32.0 [facility] Comment on above: Order Comment: Order Date: 11/23/23Order Info: 666- - BMP Result Comment: DR. WASHBURN ORDERED BMP TOO Performed By: #### L 500.2500, L100.0100 ####[facility] [address] [place], [address] CREAT,SERUM Normal 0.70-1.30 [facility] Comment on above: Order Comment: Order Date: 11/23/23Order Info: 666- - BMP Result Comment: DR. WASHBURN ORDERED BMP TOO Performed By: #### L 500.2500, L100.0100 ####[facility] [address] [place], [address] EST GFR Normal >60 [facility] Comment on above: Order Comment: Order Date: 11/23/23Order Info: 666- - BMP Result Comment: DR. WASHBURN ORDERED BMP TOO Performed By: #### L 500.2500, L100.0100 ####[facility] [address] [place], [address] EST GFR - AA Normal >60 [facility] Comment on above: Order Comment: Order Date: 11/23/23Order Info: 666- - BMP Result Comment: DR. WASHBURN ORDERED BMP TOO Performed By: #### L 500.2500, L100.0100 ####[facility] [address] [place], [address] GAP Normal 5-15 [facility] Comment on above: Order Comment: Order Date: 11/23/23Order Info: 666- - BMP Result Comment: DR. WASHBURN ORDERED BMP TOO Performed By: #### L 500.2500, L100.0100 ####[facility] [address] [place], [address] GLU Normal 74-106 [facility] Comment on above: Order Comment: Order Date: 11/23/23Order Info: 666- - BMP Result Comment: DR. WASHBURN ORDERED BMP TOO Performed By: #### L 500.2500, L100.0100 ####[facility] [address] [place], [address] Potassium Normal 3.5-5.1 [facility] Comment on above: Order Comment: Order Date: 11/23/23Order Info: 0667- - BMP Result Comment: DR. WASHBURN ORDERED BMP TOO Performed By: #### L 500.2500, L100.0100 ####[facility] [address] [place], [address] Basic Metabolic Profile (BMP) Normal 136-145 [facility] Comment on above: Order Comment: Order Date: 11/23/23Order Info: 0667- - BMP Result Comment: DR. WASHBURN ORDERED BMP TOO Performed By: #### L 500.2500, L100.0100 ####[facility] [address] [place], [address] CBC W/Diff, Automatedon 10-0 3-2024 Absolute Lymph 1.19 X10 3/uL Normal 0.83-4.51 [facility] Comment on above: Order Comment: CC.CM P TO DR. Fidencio WASHBURN Performed By: #### L 500.2500, L100.0100 ####[facility] [address] [place], [address] Absolute Neut 3.2 X10 3/uL Normal 2.0-7.7 [facility] Comment on above: Order Comment: CC.CM P TO DR. Fidencio WASHBURN Performed By: #### L 500.2500, L100.0100 ####[facility] [address] [place], [address] Basophils/100 WBC (Bld) 0.4 % Normal 0-1 [facility] Comment on above: Order Comment: CC.CM P TO DR. Fidencio WASHBURN Performed By: #### L 500.2500, L100.0100 ####[facility] [address] [place], [address] Eosinophils/100 WBC (Bld) 8.2 % High 0-5 [facility] Comment on above: Order Comment: CC.CM P TO DR. Fidencio WASHBURN Performed By: #### L 500.2500, L100.0100 ####[facility] [address] [place], [address] Erythrocyte distribution width (RBC) [Ratio] 13.2 % Normal 11.6-14.6 [facility] Comment on above: Order Comment: CC.CM P TO DR. Fidencio WASHBURN Performed By: #### L 500.2500, L100.0100 ####[facility] [address] [place], [address] Hematocrit (Bld) [Volume fraction] 30.3 % Low 40-54 [facility] Comment on above: Order Comment: CC.CM P TO DR. Fidencio WASHBURN Performed By: #### L 500.2500, L100.0100 ####[facility] [address] [place], [address] Hemoglobin (Bld) [Mass/Vol] 9.7 g/dL Low 13.0-16.5 [facility] Comment on above: Order Comment: CC.CM P TO DR. Fidencio WASHBURN Performed By: #### L 500.2500, L100.0100 ####[facility] [address] [place], [address] IG% 0.400 Normal 0.0-0.9 [facility] Comment on above: Order Comment: CC.CM P TO DR. Fidencio WASHBURN Result Comment: IG% - Immature Granulocytes (promyelocytes, myelocytes andmetamyelocytes) > 1% indicates that a LEFT SHIFT is Present. Performed By: #### L 500.2500, L100.0100 ####[facility] [address] [place], [address] Lymphocytes/100 WBC (Bld) 22.2 % Normal 19-41 [facility] Comment on above: Order Comment: CC.CM P TO DR. Fidencio WASHBURN Performed By: #### L 500.2500, L100.0100 ####[facility] [address] [place], [address] MCH (RBC) [Entitic mass] 30.4 pg Normal 27.0-32.0 [facility] Comment on above: Order Comment: CC.CM P TO DR. Fidencio WASHBURN Performed By: #### L 500.2500, L100.0100 ####[facility] [address] [place], [address] MCHC (RBC) [Mass/Vol] 32.0 g/dL Normal 32-36 [facility] Comment on above: Order Comment: CC.CM P TO DR. Fidencio WASHBURN Performed By: #### L 500.2500, L100.0100 ####[facility] [address] [place], [address] MCV (RBC) [Entitic vol] 95.0 fL High 80-94 [facility] Comment on above: Order Comment: CC.CM P TO DR. Fidencio WASHBURN Performed By: #### L 500.2500, L100.0100 ####[facility] [address] [place], [address] Monocytes/100 WBC (Bld) 9.0 % Normal 0-10 [facility] Comment on above: Order Comment: CC.CM P TO DR. Fidencio WASHBURN Performed By: #### L 500.2500, L100.0100 ####[facility] [address] [place], [address] Neutrophils/100 WBC (Bld) 59.8 % Normal 47-70 [facility] Comment on above: Order Comment: CC.CM P TO DR. Fidencio WASHBURN Performed By: #### L 500.2500, L100.0100 ####[facility] [address] [place], [address] Nucleated RBC (Bld) [#/Vol] 0 10*3/uL Normal 0-5 [facility] Comment on above: Order Comment: CC.CM P TO DR. Fidencio WASHBURN Performed By: #### L 500.2500, L100.0100 ####[facility] [address] [place], [address] Platelet mean volume (Bld) [Entitic vol] 10.3 fL Normal 6.2-12.0 [facility] Comment on above: Order Comment: CC.CM P TO DR. Fidencio WASHBURN Performed By: #### L 500.2500, L100.0100 ####[facility] [address] [place], [address] Platelets (Bld) [#/Vol] 152 10*3/uL Normal 150-450 [facility] Comment on above: Order Comment: CC.CM P TO DR. Fidencio WASHBURN Performed By: #### L 500.2500, L100.0100 ####[facility] [address] [place], [address] RBC (Bld) [#/Vol] 3.19 10*6/uL Low 4.6-6.2 [facility] Comment on above: Order Comment: CC.CM P TO DR. Fidencio WASHBURN Performed By: #### L 500.2500, L100.0100 ####[facility] [address] [place], [address] RDW SD 45.6 fl High 35.1-43.9 [facility] Comment on above: Order Comment: CC.CM P TO DR. Fidencio WASHBURN Performed By: #### L 500.2500, L100.0100 ####[facility] [address] [place], [address] WBC (Bld) [#/Vol] 5.4 10*3/uL Normal 4.4-11.0 [facility] Comment on above: Order Comment: CC.CM P TO DR. Fidencio WASHBURN Performed By: #### L 500.2500, L100.0100 ####[facility] [address] [place], [address] Iron+Iron Binding Capacityon 12-13-2023 Iron [Mass/Vol] 39 ug/dL Low 65-175 [facility] Comment on above: Order Comment: CC: Cole HERNANDEZ Performed By: #### L 503.6030, L500.2500 ####[facility] [address] [place], [address] IRON SATURATION 14.6 Low 15.0-55.0 [facility] Comment on above: Order Comment: CC: Cole HERNANDEZ Performed By: #### L 503.6030, L500.2500 ####[facility] [address] [place], [address] TIBC 268 ug/dL Normal 250-450 [facility] Comment on above: Order Comment: CC: Cole HERNANDEZ Performed By: #### L 503.6030, L500.2500 ####[facility] [address] [place], [address] 12 Lead EKGon 12-10-2023 12 Lead EKG Normal [facility] Basic Metabolic Profile (BMP )on 12-10-2023 BUN/CRE 42.8 RATIO High 10-20 [facility] Comment on above: Performed By: #### L 300.3900, L100.0100, L501.9985, L500.2500, L300.4310 ####[facility] [address] [place], [address] CA,Total 9.1 mg/dL Normal 8.5-10.1 [facility] [facility] Comment on above: Performed By: #### L 300.3900, L100.0100, L501.9985, L500.2500, L300.4310 ####[facility] [address] [place], [address] Chloride [Moles/Vol] 108 mmol/L High 98-107 [facility] Comment on above: Performed By: #### L 300.3900, L100.0100, L501.9985, L500.2500, L300.4310 ####[facility] [address] [place], [address] CO2 [Moles/Vol] 26.0 mmol/L Normal 21.0-32.0 [facility] Comment on above: Performed By: #### L 300.3900, L100.0100, L501.9985, L500.2500, L300.4310 ####[facility] [address] [place], [address] Creatinine [Mass/Vol] 1.87 mg/dL High 0.70-1.30 [facility] Comment on above: Result Comment: The validity of the calculated GFR GFRAA in patients over70 years has not been determined. Clinical correlation isessential. Performed By: #### L 300.3900, L100.0100, L501.9985, L500.2500, L300.4310 ####[facility] [address] [place], [address] ECRCL 29.90 ml/min Normal [facility] Comment on above: Performed By: #### L 300.3900, L100.0100, L501.9985, L500.2500, L300.4310 ####[facility] [address] [place], [address] EST GFR - AA 44 mL/min Low >60 [facility] Comment on above: Result Comment: Afri can [place]adian GFR Calc Performed By: #### L 300.3900, L100.0100, L501.9985, L500.2500, L300.4310 ####[facility] [address] [place], [address] GAP 11 Normal 5-15 [facility] Comment on above: Performed By: #### L 300.3900, L100.0100, L501.9985, L500.2500, L300.4310 ####[facility] [address] [place], [address] GFR/1.73 sq M.predicted among non-blacks MDRD (S/P/Bld) [Vol rate/Area] 37 mL/min/{1.73_m2} Low >60 [facility] Comment on above: Result Comment: Non- GFR Calc Performed By: #### L 300.3900, L100.0100, L501.9985, L500.2500, L300.4310 ####[facility] [address] [place], [address] Glucose [Mass/Vol] 147 mg/dL High 74-106 [facility] Comment on above: Result Comment: Fast ing Glucose result greater than or equal to 126 mg/dLsuggests DIABETES MELLITUS per A.D.A. criteria. Performed By: #### L 300.3900, L100.0100, L501.9985, L500.2500, L300.4310 ####[facility] [address] [place], [address] Potassium [Moles/Vol] 4.8 mmol/L Normal 3.5-5.1 [facility] Comment on above: Performed By: #### L 300.3900, L100.0100, L501.9985, L500.2500, L300.4310 ####[facility] [address] [place], [address] Sodium [Moles/Vol] 145 mmol/L Normal 136-145 [facility] Comment on above: Performed By: #### L 300.3900, L100.0100, L501.9985, L500.2500, L300.4310 ####[facility] [address] [place], [address] Urea nitrogen [Mass/Vol] 80 mg/dL High 7-18 [facility] Comment on above: Performed By: #### L 300.3900, L100.0100, L501.9985, L500.2500, L300.4310 ####[facility] [address] [place], [address] Bedside Glucoseon 12-09-2023 FINGERSTICK GLU 113 mg/dL High 74-106 [facility] Comment on above: Result Comment: MYKE GEMENT OF PATIENT CARE PER NURSING PROTOCOL Performed By: #### L 501.080 ####[facility] [address] [place], [address] FINGERSTICK GLU 142 mg/dL High 74-106 [facility] Comment on above: Result Comment: MYKE GEMENT OF PATIENT CARE PER NURSING PROTOCOL Performed By: #### L 501.080 ####[facility] [address] [place], [address] FINGERSTICK GLU 136 mg/dL High 74-106 [facility] Comment on above: Result Comment: MYKE GEMENT OF PATIENT CARE PER NURSING PROTOCOL Performed By: #### L 501.080 ####[facility] [address] [place], [address] CBC W/Diff, Automatedon 11-12 0 Absolute Lymph 0.72 X10 3/uL Low 0.83-4.51 [facility] Comment on above: Performed By: #### L 300.3900, L100.0100, L501.9985, L500.2500, L300.4310 ####[facility] [address] [place], [address] Absolute Neut 2.9 X10 3/uL Normal 2.0-7.7 [facility] Comment on above: Performed By: #### L 300.3900, L100.0100, L501.9985, L500.2500, L300.4310 ####[facility] [address] [place], [address] Basophils/100 WBC (Bld) 0.7 % Normal 0-1 [facility] Comment on above: Performed By: #### L 300.3900, L100.0100, L501.9985, L500.2500, L300.4310 ####[facility] [address] [place], [address] Eosinophils/100 WBC (Bld) 6.5 % High 0-5 [facility] Comment on above: Performed By: #### L 300.3900, L100.0100, L501.9985, L500.2500, L300.4310 ####[facility] [address] [place], [address] Erythrocyte distribution width (RBC) [Ratio] 14.4 % Normal 11.6-14.6 [facility] Comment on above: Performed By: #### L 300.3900, L100.0100, L501.9985, L500.2500, L300.4310 ####[facility] [address] [place], [address] Hematocrit (Bld) [Volume fraction] 28.8 % Low 40-54 [facility] Comment on above: Performed By: #### L 300.3900, L100.0100, L501.9985, L500.2500, L300.4310 ####[facility] [address] [place], [address] Hemoglobin (Bld) [Mass/Vol] 9.4 g/dL Low 13.0-16.5 [facility] Comment on above: Performed By: #### L 300.3900, L100.0100, L501.9985, L500.2500, L300.4310 ####[facility] [address] [place], [address] IG% 0.500 Normal 0.0-0.9 [facility] Comment on above: Result Comment: IG% - Immature Granulocytes (promyelocytes, myelocytes andmetamyelocytes) > 1% indicates that a LEFT SHIFT is Present. Performed By: #### L 300.3900, L100.0100, L501.9985, L500.2500, L300.4310 ####[facility] [address] [place], [address] Lymphocytes/100 WBC (Bld) 16.7 % Low 19-41 [facility] Comment on above: Performed By: #### L 300.3900, L100.0100, L501.9985, L500.2500, L300.4310 ####[facility] [address] [place], [address] MCH (RBC) [Entitic mass] 30.7 pg Normal 27.0-32.0 [facility] Comment on above: Performed By: #### L 300.3900, L100.0100, L501.9985, L500.2500, L300.4310 ####[facility] [address] [place], [address] MCHC (RBC) [Mass/Vol] 32.6 g/dL Normal 32-36 [facility] Comment on above: Performed By: #### L 300.3900, L100.0100, L501.9985, L500.2500, L300.4310 ####[facility] [address] [place], [address] MCV (RBC) [Entitic vol] 94.1 fL High 80-94 [facility] Comment on above: Performed By: #### L 300.3900, L100.0100, L501.9985, L500.2500, L300.4310 ####[facility] [address] [place], [address] Monocytes/100 WBC (Bld) 7.2 % Normal 0-10 [facility] Comment on above: Performed By: #### L 300.3900, L100.0100, L501.9985, L500.2500, L300.4310 ####[facility] [address] [place], [address] Neutrophils/100 WBC (Bld) 68.4 % Normal 47-70 [facility] Comment on above: Performed By: #### L 300.3900, L100.0100, L501.9985, L500.2500, L300.4310 ####[facility] [address] [place], [address] Nucleated RBC (Bld) [#/Vol] 0 10*3/uL Normal 0-5 [facility] Comment on above: Performed By: #### L 300.3900, L100.0100, L501.9985, L500.2500, L300.4310 ####[facility] [address] [place], [address] Platelet mean volume (Bld) [Entitic vol] 11.3 fL Normal 6.2-12.0 [facility] Comment on above: Performed By: #### L 300.3900, L100.0100, L501.9985, L500.2500, L300.4310 ####[facility] [address] [place], [address] Platelets (Bld) [#/Vol] 89 10*3/uL Low 150-450 [facility] Comment on above: Performed By: #### L 300.3900, L100.0100, L501.9985, L500.2500, L300.4310 ####[facility] [address] [place], [address] RBC (Bld) [#/Vol] 3.06 10*6/uL Low 4.6-6.2 [facility] Comment on above: Performed By: #### L 300.3900, L100.0100, L501.9985, L500.2500, L300.4310 ####[facility] [address] [place], [address] RDW SD 48.5 fl High 35.1-43.9 [facility] Comment on above: Performed By: #### L 300.3900, L100.0100, L501.9985, L500.2500, L300.4310 ####[facility] [address] [place], [address] WBC (Bld) [#/Vol] 4.3 10*3/uL Low 4.4-11.0 [facility] Comment on above: Performed By: #### L 300.3900, L100.0100, L501.9985, L500.2500, L300.4310 ####[facility] [address] [place], [address] Colonoscopy Reporton 024 Colonoscopy Report Normal [facility] Discharge Instructionon 11-12 Discharge Instruction Normal [facility] Hemoglobin A1con 12-10-2023 HbA1c (Bld) [Mass fraction] 5.9 % High 3.8-5.6 [facility] Comment on above: Result Comment: Norm al < 5.7 % Prediabetic 5.7 - 6.4 % Diabetic >or= 6.5 % Please note range changes. Performed By: #### L 300.3900, L100.0100, L501.9985, L500.2500, L300.4310 ####[facility] [address] [place], [address] MR/POSTOP.ANEon 12-10-2023 MR/POSTOP.ANE Normal [facility] MR/SFATWTNH5kf 12-10-2023 MR/POSTOPAN2 Normal [facility] MR/POSTOPAN2 Normal [facility] Partial Thromboplast Timeon 12-10-2023 aPTT Coag (Bld) [Time] 32.0 s Normal 24.1-36.2 [facility] Comment on above: Performed By: #### L 300.3900, L100.0100, L501.9985, L500.2500, L300.4310 ####[facility] [address] [place], [address] Prothrombin Time w/INRon INR Coag (PPP) [Relative time] 1.2 {INR} Normal [facility] Comment on above: Performed By: #### L 300.3900, L100.0100, L501.9985, L500.2500, L300.4310 ####[facility] [address] [place], [address] PT Coag (PPP) [Time] 15.5 s High 11.7-14.9 [facility] Comment on above: Performed By: #### L 300.3900, L100.0100, L501.9985, L500.2500, L300.4310 ####[facility] [address] [place], [address] Surgery Specimen Level Riky 12-10-2023 Surgery Specimen Level IV Normal [facility] Comment on above: Performed By: #### P SUIV ####[facility] [address] [place], [address] Basic Metabolic Profile (BMP )on 12-09-2023 BUN/CRE 48.6 RATIO High 10-20 [facility] Comment on above: Performed By: #### L 500.2500, L100.0100 ####[facility] [address] [place], [address] CA,Total 9.3 mg/dL Normal 8.5-10.1 [facility] Comment on above: Performed By: #### L 500.2500, L100.0100 ####[facility] [address] [place], [address] Chloride [Moles/Vol] 107 mmol/L Normal 98-107 [facility] Comment on above: Performed By: #### L 500.2500, L100.0100 ####[facility] [address] [place], [address] CO2 [Moles/Vol] 26.0 mmol/L Normal 21.0-32.0 [facility] Comment on above: Performed By: #### L 500.2500, L100.0100 ####[facility] [address] [place], [address] Creatinine [Mass/Vol] 2.20 mg/dL High 0.70-1.30 [facility] Comment on above: Result Comment: The validity of the calculated GFR GFRAA in patients over70 years has not been determined. Clinical correlation isessential. Performed By: #### L 500.2500, L100.0100 ####[facility] [address] [place], [address] ECRCL 25.45 ml/min Normal [facility] Comment on above: Performed By: #### L 500.2500, L100.0100 ####[facility] [address] [place], [address] EST GFR - AA 37 mL/min Low >60 [facility] Comment on above: Result Comment: Afri can [place] GFR Calc Performed By: #### L 500.2500, L100.0100 ####[facility] [address] [place], [address] GAP 7 Normal 5-15 [facility] Comment on above: Performed By: #### L 500.2500, L100.0100 ####[facility] [address] [place], [address] GFR/1.73 sq M.predicted among non-blacks MDRD (S/P/Bld) [Vol rate/Area] 30 mL/min/{1.73_m2} Low >60 [facility] Comment on above: Result Comment: Non- GFR Calc Performed By: #### L 500.2500, L100.0100 ####[facility] [address] [place], [address] Glucose [Mass/Vol] 191 mg/dL High 74-106 [facility] Comment on above: Result Comment: Fast ing Glucose result greater than or equal to 126 mg/dLsuggests DIABETES MELLITUS per A.D.A. criteria. Performed By: #### L 500.2500, L100.0100 ####[facility] [address] [place], [address] Potassium [Moles/Vol] 4.9 mmol/L Normal 3.5-5.1 [facility] Comment on above: Performed By: #### L 500.2500, L100.0100 ####[facility] [address] [place], [address] Sodium [Moles/Vol] 140 mmol/L Normal 136-145 [facility] Comment on above: Performed By: #### L 500.2500, L100.0100 ####[facility] [address] [place], [address] Urea nitrogen [Mass/Vol] 107 mg/dL Invalid Interpretation Code 7-18 [facility] Comment on above: Result Comment: Crit ical Result(s) Called at: 06:23:13 12/09/2023 by:Didier Kitchen. Results read back by same. Performed By: #### L 500.2500, L100.0100 ####[facility] [address] [place], [address] Bedside Glucoseon 12-09-2023 FINGERSTICK GLU 138 mg/dL High 74-106 [facility] Comment on above: Result Comment: MYKE SAGE OF PATIENT CARE PER NURSING PROTOCOL Performed By: #### L 501.080 ####[facility] [address] [place], [address] FINGERSTICK GLU 164 mg/dL High 74-106 [facility] Comment on above: Result Comment: MYKE GEMENT OF PATIENT CARE PER NURSING PROTOCOL Performed By: #### L 501.080 ####[facility] [address] [place], [address] FINGERSTICK GLU 140 mg/dL High 74-106 [facility] Comment on above: Result Comment: MYKE GEMENT OF PATIENT CARE PER NURSING PROTOCOL Performed By: #### L 501.080 ####[facility] [address] [place], [address] FINGERSTICK GLU 161 mg/dL High 74-106 [facility] Comment on above: Result Comment: MYKE GEMENT OF PATIENT CARE PER NURSING PROTOCOL Performed By: #### L 501.080 ####[facility] [address] [place], [address] CBC W/Diff, Automatedon - Absolute Lymph 1.00 X10 3/uL Normal 0.83-4.51 [facility] Comment on above: Performed By: #### L 500.2500, L100.0100 ####[facility] [address] [place], [address] Absolute Neut 4.5 X10 3/uL Normal 2.0-7.7 [facility] Comment on above: Performed By: #### L 500.2500, L100.0100 ####[facility] [address] [place], [address] Basophils/100 WBC (Bld) 0.5 % Normal 0-1 [facility] Comment on above: Performed By: #### L 500.2500, L100.0100 ####[facility] [address] [place], [address] Eosinophils/100 WBC (Bld) 4.6 % Normal 0-5 [facility] Comment on above: Performed By: #### L 500.2500, L100.0100 ####[facility] [address] [place], [address] Erythrocyte distribution width (RBC) [Ratio] 14.2 % Normal 11.6-14.6 [facility] Comment on above: Performed By: #### L 500.2500, L100.0100 ####[facility] [address] [place], [address] Hematocrit (Bld) [Volume fraction] 29.0 % Low 40-54 [facility] Comment on above: Performed By: #### L 500.2500, L100.0100 ####[facility] [address] [place], [address] Hemoglobin (Bld) [Mass/Vol] 9.3 g/dL Low 13.0-16.5 [facility] Comment on above: Performed By: #### L 500.2500, L100.0100 ####[facility] [address] [place], [address] IG% 0.300 Normal 0.0-0.9 [facility] Comment on above: Result Comment: IG% - Immature Granulocytes (promyelocytes, myelocytes andmetamyelocytes) > 1% indicates that a LEFT SHIFT is Present. Performed By: #### L 500.2500, L100.0100 ####[facility] [address] [place], [address] Lymphocytes/100 WBC (Bld) 15.9 % Low 19-41 [facility] Comment on above: Performed By: #### L 500.2500, L100.0100 ####[facility] [address] [place], [address] MCH (RBC) [Entitic mass] 30.2 pg Normal 27.0-32.0 [facility] Comment on above: Performed By: #### L 500.2500, L100.0100 ####[facility] [address] [place], [address] MCHC (RBC) [Mass/Vol] 32.1 g/dL Normal 32-36 [facility] Comment on above: Performed By: #### L 500.2500, L100.0100 ####[facility] [address] [place], [address] MCV (RBC) [Entitic vol] 94.2 fL High 80-94 [facility] Comment on above: Performed By: #### L 500.2500, L100.0100 ####[facility] [address] [place], [address] Monocytes/100 WBC (Bld) 6.7 % Normal 0-10 [facility] Comment on above: Performed By: #### L 500.2500, L100.0100 ####[facility] [address] [place], [address] Neutrophils/100 WBC (Bld) 72.0 % High 47-70 [facility] Comment on above: Performed By: #### L 500.2500, L100.0100 ####[facility] [address], [address] Nucleated RBC (Bld) [#/Vol] 0 10*3/uL Normal 0-5 [facility] Comment on above: Performed By: #### L 500.2500, L100.0100 ####[facility] [address] [place], [address] Platelet mean volume (Bld) [Entitic vol] 11.2 fL Normal 6.2-12.0 [facility] Comment on above: Performed By: #### L 500.2500, L100.0100 ####[facility] [address] [place], [address] Platelets (Bld) [#/Vol] 88 10*3/uL Low 150-450 [facility] Comment on above: Performed By: #### L 500.2500, L100.0100 ####[facility] [address] [place], [address] RBC (Bld) [#/Vol] 3.08 10*6/uL Low 4.6-6.2 [facility] Comment on above: Performed By: #### L 500.2500, L100.0100 ####[facility] [address] [place], [address] RDW SD 47.8 fl High 35.1-43.9 [facility] Comment on above: Performed By: #### L 500.2500, L100.0100 ####[facility] [address] [place], [address] WBC (Bld) [#/Vol] 6.3 10*3/uL Normal 4.4-11.0 [facility] Comment on above: Performed By: #### L 500.2500, L100.0100 ####[facility] [address] [place], [address] MR/CON.PCM.GIon 12-09-2023 MR/CON.PCM.GI Normal [facility] Basic Metabolic Profile (BMP )on 12-08-2023 BUN/CRE 43.2 RATIO High 10-20 [facility] Comment on above: Performed By: #### L 500.2500, L501.5200, L100.0100, L501.2300 ####[facility] [address] [place], [address] CA,Total 8.9 mg/dL Normal 8.5-10.1 [facility] Comment on above: Performed By: #### L 500.2500, L501.5200, L100.0100, L501.2300 ####[facility] [address] [place], [address] Chloride [Moles/Vol] 107 mmol/L Normal 98-107 [facility] Comment on above: Performed By: #### L 500.2500, L501.5200, L100.0100, L501.2300 ####[facility] [address] [place], [address] CO2 [Moles/Vol] 27.0 mmol/L Normal 21.0-32.0 [facility] Comment on above: Performed By: #### L 500.2500, L501.5200, L100.0100, L501.2300 ####[facility] [address] [place], [address] Creatinine [Mass/Vol] 2.29 mg/dL High 0.70-1.30 [facility] Comment on above: Result Comment: The validity of the calculated GFR GFRAA in patients over70 years has not been determined. Clinical correlation isessential. Performed By: #### L 500.2500, L501.5200, L100.0100, L501.2300 ####[facility] [address] [place], [address] ECRCL 24.45 ml/min Normal [facility] Comment on above: Performed By: #### L 500.2500, L501.5200, L100.0100, L501.2300 ####[facility] [address] [place], [address] EST GFR - AA 35 mL/min Low >60 [facility] Comment on above: Result Comment: Afri can [place] GFR Calc Performed By: #### L 500.2500, L501.5200, L100.0100, L501.2300 ####[facility] [address] [place], [address] GAP 5 Normal 5-15 [facility] Comment on above: Performed By: #### L 500.2500, L501.5200, L100.0100, L501.2300 ####[facility] [address] [place], [address] GFR/1.73 sq M.predicted among non-blacks MDRD (S/P/Bld) [Vol rate/Area] 29 mL/min/{1.73_m2} Low >60 [facility] Comment on above: Result Comment: Non- GFR Calc Performed By: #### L 500.2500, L501.5200, L100.0100, L501.2300 ####[facility] [address] [place], [address] Glucose [Mass/Vol] 142 mg/dL High 74-106 [facility] Comment on above: Result Comment: Fast ing Glucose result greater than or equal to 126 mg/dLsuggests DIABETES MELLITUS per A.D.A. criteria. Performed By: #### L 500.2500, L501.5200, L100.0100, L501.2300 ####[facility] [address] [place], [address] Potassium [Moles/Vol] 4.8 mmol/L Normal 3.5-5.1 [facility] Comment on above: Performed By: #### L 500.2500, L501.5200, L100.0100, L501.2300 ####[facility] [address] [place], [address] Sodium [Moles/Vol] 139 mmol/L Normal 136-145 [facility] Comment on above: Performed By: #### L 500.2500, L501.5200, L100.0100, L501.2300 ####[facility] [address] [place], [address] Urea nitrogen [Mass/Vol] 99 mg/dL High 7-18 [facility] Comment on above: Performed By: #### L 500.2500, L501.5200, L100.0100, L501.2300 ####[facility] [address] [place], [address] Bedside Glucoseon 12-08-2023 FINGERSTICK GLU 182 mg/dL High 74-106 [facility] Comment on above: Result Comment: MYKE GEMENT OF PATIENT CARE PER NURSING PROTOCOL Performed By: #### L 501.080 ####[facility] [address] [place], [address] FINGERSTICK GLU 176 mg/dL High 74-106 [facility] Comment on above: Result Comment: MYKE GEMENT OF PATIENT CARE PER NURSING PROTOCOL Performed By: #### L 501.080 ####[facility] [address] [place], [address] FINGERSTICK GLU 220 mg/dL High -106 [facility] [facility] Comment on above: Result Comment: MYKE GEMENT OF PATIENT CARE PER NURSING PROTOCOL Performed By: #### L 501.080 ####[facility] [address] [place], [address] FINGERSTICK GLU 131 mg/dL High -106 [facility] Comment on above: Result Comment: MYKE GEMENT OF PATIENT CARE PER NURSING PROTOCOL Performed By: #### L 501.080 ####[facility] [address] [place], [address] CBC W/Diff, Automatedon 11-11 TEAR DROP RARE Normal [facility] Comment on above: Performed By: #### L 500.2500, L501.5200, L100.0100, L501.2300 ####[facility] [address] [place], [address] HYPOCHROMASIA 1+ Normal [facility] Comment on above: Performed By: #### L 500.2500, L501.5200, L100.0100, L501.2300 ####[facility] [address] [place], [address] MICROCYTIC 1+ Normal [facility] Comment on above: Performed By: #### L 500.2500, L501.5200, L100.0100, L501.2300 ####[facility] [address] [place], [address] OVALOCYTE 2+ Normal [facility] Comment on above: Performed By: #### L 500.2500, L501.5200, L100.0100, L501.2300 ####[facility] [address] [place], [address] POLYCHROMASIA 1+ Normal [facility] Comment on above: Performed By: #### L 500.2500, L501.5200, L100.0100, L501.2300 ####[facility] [address] [place], [address] Anisocytosis Ql (Bld) 2+ Normal [facility] Comment on above: Performed By: #### L 500.2500, L501.5200, L100.0100, L501.2300 ####[facility] [address] [place], [address] PLT EST MOD DEC Normal ADEQ [facility] Comment on above: Performed By: #### L 500.2500, L501.5200, L100.0100, L501.2300 ####[facility] [address] [place], [address] SMEAR COMMENT SCANNED Normal [facility] Comment on above: Performed By: #### L 500.2500, L501.5200, L100.0100, L501.2300 ####[facility] [address] [place], [address] Magnesiumon 12-08-2023 Magnesium [Mass/Vol] 2.1 mg/dL Normal 1.6-2.6 [facility] Comment on above: Performed By: #### L 500.2500, L501.5200, L100.0100, L501.2300 ####[facility] [address] [place], [address] Phosphoruson 12-08-2023 Phosphate [Mass/Vol] 3.5 mg/dL Normal 2.5-4.9 [facility] Comment on above: Performed By: #### L 500.2500, L501.5200, L100.0100, L501.2300 ####[facility] [address] [place], [address] Stool Occult Blood iFOBon STOB Positive Normal [facility] Comment on above: Performed By: #### M 100.7900 ####[facility] [address] [place], [address] Bedside Glucoseon 12-07-2023 FINGERSTICK GLU 202 mg/dL High [address] [place] [address] Comment on above: Result Comment: MYKE GEMENT OF PATIENT CARE PER NURSING PROTOCOL Performed By: #### L 501.080 ####[facility] [address] [place], [address] FINGERSTICK GLU 206 mg/dL High [address] [place] [address] Comment on above: Result Comment: MYKE GEMENT OF PATIENT CARE PER NURSING PROTOCOL Performed By: #### L 501.080 ####[facility] [address] [place], [address] FINGERSTICK GLU 200 mg/dL High [address] [place] [address] Comment on above: Result Comment: MYKE GEMENT OF PATIENT CARE PER NURSING PROTOCOL Performed By: #### L 501.080 ####[facility] [address] [place], [address] FINGERSTICK GLU 136 mg/dL High [address] [place] [address] Comment on above: Result Comment: MYKE GEMENT OF PATIENT CARE PER NURSING PROTOCOL Performed By: #### L 501.080 ####[facility] [address] [place], [address] CBC W/Diff, Automatedon 09-2 Absolute Lymph 0.80 X10 3/uL Low 0.83-4.51 [facility] Comment on above: Performed By: #### L 100.0100, L503.6550, L500.4050, L503.6030, L501.5200 ####[facility] [address] [place], [address] Absolute Neut 5.6 X10 3/uL Normal 2.0-7.7 [facility] Comment on above: Performed By: #### L 100.0100, L503.6550, L500.4050, L503.6030, L501.5200 ####[facility] [address] [place], [address] Basophils/100 WBC (Bld) 0.1 % Normal 0-1 [facility] Comment on above: Performed By: #### L 100.0100, L503.6550, L500.4050, L503.6030, L501.5200 ####[facility] [address] [place], [address] Eosinophils/100 WBC (Bld) 2.7 % Normal 0-5 [facility] Comment on above: Performed By: #### L 100.0100, L503.6550, L500.4050, L503.6030, L501.5200 ####[facility] [address] [place], [address] Erythrocyte distribution width (RBC) [Ratio] 14.8 % High 11.6-14.6 [facility] Comment on above: Performed By: #### L 100.0100, L503.6550, L500.4050, L503.6030, L501.5200 ####[facility] [address] [place], [address] Hematocrit (Bld) [Volume fraction] 25.2 % Low 40-54 [facility] Comment on above: Performed By: #### L 100.0100, L503.6550, L500.4050, L503.6030, L501.5200 ####[facility] [address] [place], [address] Hemoglobin (Bld) [Mass/Vol] 8.0 g/dL Low 13.0-16.5 [facility] Comment on above: Performed By: #### L 100.0100, L503.6550, L500.4050, L503.6030, L501.5200 ####[facility] [address] [place], [address] IG% 0.400 Normal 0.0-0.9 [facility] Comment on above: Result Comment: IG% - Immature Granulocytes (promyelocytes, myelocytes andmetamyelocytes) > 1% indicates that a LEFT SHIFT is Present. Performed By: #### L 100.0100, L503.6550, L500.4050, L503.6030, L501.5200 ####[facility] [address] [place], [address] Lymphocytes/100 WBC (Bld) 11.3 % Low 19-41 [facility] Comment on above: Performed By: #### L 100.0100, L503.6550, L500.4050, L503.6030, L501.5200 ####[facility] [address] [place], [address] MCH (RBC) [Entitic mass] 30.4 pg Normal 27.0-32.0 [facility] Comment on above: Performed By: #### L 100.0100, L503.6550, L500.4050, L503.6030, L501.5200 ####[facility] [address] [place], [address] MCHC (RBC) [Mass/Vol] 31.7 g/dL Low 32-36 [facility] Comment on above: Performed By: #### L 100.0100, L503.6550, L500.4050, L503.6030, L501.5200 ####[facility] [address] [place], [address] MCV (RBC) [Entitic vol] 95.8 fL High 80-94 [facility] Comment on above: Performed By: #### L 100.0100, L503.6550, L500.4050, L503.6030, L501.5200 ####[facility] [address] [place], [address] Monocytes/100 WBC (Bld) 6.1 % Normal 0-10 [facility] Comment on above: Performed By: #### L 100.0100, L503.6550, L500.4050, L503.6030, L501.5200 ####[facility] [address] [place], [address] Neutrophils/100 WBC (Bld) 79.4 % High 47-70 [facility] Comment on above: Performed By: #### L 100.0100, L503.6550, L500.4050, L503.6030, L501.5200 ####[facility] [address] [place], [address] Nucleated RBC (Bld) [#/Vol] 0 10*3/uL Normal 0-5 [facility] Comment on above: Performed By: #### L 100.0100, L503.6550, L500.4050, L503.6030, L501.5200 ####[facility] [address] [place], [address] Platelet mean volume (Bld) [Entitic vol] 11.5 fL Normal 6.2-12.0 [facility] Comment on above: Performed By: #### L 100.0100, L503.6550, L500.4050, L503.6030, L501.5200 ####[facility] [address] [place], [address] Platelets (Bld) [#/Vol] 82 10*3/uL Low 150-450 [facility] Comment on above: Performed By: #### L 100.0100, L503.6550, L500.4050, L503.6030, L501.5200 ####[facility] [address] [place], [address] RBC (Bld) [#/Vol] 2.63 10*6/uL Low 4.6-6.2 [facility] Comment on above: Performed By: #### L 100.0100, L503.6550, L500.4050, L503.6030, L501.5200 ####[facility] [address] [place], [address] RDW SD 52.0 fl High 35.1-43.9 [facility] Comment on above: Performed By: #### L 100.0100, L503.6550, L500.4050, L503.6030, L501.5200 ####[facility] [address] [place], [address] WBC (Bld) [#/Vol] 7.1 10*3/uL Normal 4.4-11.0 [facility] Comment on above: Performed By: #### L 100.0100, L503.6550, L500.4050, L503.6030, L501.5200 ####[facility] [address] [place], [address] Comprehensive Metabolic Prof ilon 12-07-2023 Albumin [Mass/Vol] 2.9 g/dL Low 3.2-5.0 [facility] Comment on above: Order Comment: Comme nts: May add to ED labs Performed By: #### L 100.0100, L503.6550, L500.4050, L503.6030, L501.5200 ####[facility] [address] [place], [address] Albumin/Globulin [Mass ratio] 0.8 {ratio} Low 0.9-2.4 [facility] Comment on above: Order Comment: Comme nts: May add to ED labs Performed By: #### L 100.0100, L503.6550, L500.4050, L503.6030, L501.5200 ####[facility] [address] [place], [address] ALK P 60 U/L Normal 45-117 [facility] Comment on above: Order Comment: Comme nts: May add to ED labs Performed By: #### L 100.0100, L503.6550, L500.4050, L503.6030, L501.5200 ####[facility] [address] [place], [address] ALT [Catalytic activity/Vol] 23 U/L Normal 16-61 [facility] Comment on above: Order Comment: Comme nts: May add to ED labs Performed By: #### L 100.0100, L503.6550, L500.4050, L503.6030, L501.5200 ####[facility] [address] [place], [address] AST [Catalytic activity/Vol] 35 U/L Normal 15-37 [facility] Comment on above: Order Comment: Comme nts: May add to ED labs Performed By: #### L 100.0100, L503.6550, L500.4050, L503.6030, L501.5200 ####[facility] [address] [place], [address] Bilirubin [Mass/Vol] 1.60 mg/dL High 0.20-1.00 [facility] Comment on above: Order Comment: Comme nts: May add to ED labs Result Comment: For patients on eltrombopag therapy, use of Dimension [place] TBIL is not recommended. Performed By: #### L 100.0100, L503.6550, L500.4050, L503.6030, L501.5200 ####[facility] [address] [place], [address] BUN/CRE 35.5 RATIO High 10-20 [facility] Comment on above: Order Comment: Comme nts: May add to ED labs Performed By: #### L 100.0100, L503.6550, L500.4050, L503.6030, L501.5200 ####[facility] [address] [place], [address] CA,Total 8.7 mg/dL Normal 8.5-10.1 [facility] Comment on above: Order Comment: Comme nts: May add to ED labs Performed By: #### L 100.0100, L503.6550, L500.4050, L503.6030, L501.5200 ####[facility] [address] [place], [address] Chloride [Moles/Vol] 107 mmol/L Normal 98-107 [facility] Comment on above: Order Comment: Comme nts: May add to ED labs Performed By: #### L 100.0100, L503.6550, L500.4050, L503.6030, L501.5200 ####[facility] [address] [place], [address] CO2 [Moles/Vol] 29.0 mmol/L Normal 21.0-32.0 [facility] Comment on above: Order Comment: Comme nts: May add to ED labs Performed By: #### L 100.0100, L503.6550, L500.4050, L503.6030, L501.5200 ####[facility] [address] [place], [address] Creatinine [Mass/Vol] 2.73 mg/dL High 0.70-1.30 [facility] Comment on above: Order Comment: Comme nts: May add to ED labs Result Comment: The validity of the calculated GFR GFRAA in patients over70 years has not been determined. Clinical correlation isessential. Performed By: #### L 100.0100, L503.6550, L500.4050, L503.6030, L501.5200 ####[facility] [address] [place], [address] ECRCL 20.51 ml/min Normal [facility] Comment on above: Order Comment: Commbrisa nts: May add to ED labs Performed By: #### L 100.0100, L503.6550, L500.4050, L503.6030, L501.5200 ####[facility] [address] [place], [address] EST GFR - AA 29 mL/min Low >60 [facility] Comment on above: Order Comment: Comme nts: May add to ED labs Result Comment: Afri can [place] GFR Calc Performed By: #### L 100.0100, L503.6550, L500.4050, L503.6030, L501.5200 ####[facility] [address] [place], [address] GAP 6 Normal 5-15 [facility] Comment on above: Order Comment: Comme nts: May add to ED labs Performed By: #### L 100.0100, L503.6550, L500.4050, L503.6030, L501.5200 ####[facility] [address] [place], [address] GFR/1.73 sq M.predicted among non-blacks MDRD (S/P/Bld) [Vol rate/Area] 24 mL/min/{1.73_m2} Low >60 [facility] Comment on above: Order Comment: Comme nts: May add to ED labs Result Comment: Non- GFR Calc Performed By: #### L 100.0100, L503.6550, L500.4050, L503.6030, L501.5200 ####[facility] [address] [place], [address] Globulin (S) [Mass/Vol] 3.5 g/dL Normal 2.2-4.2 [facility] Comment on above: Order Comment: Commbrisa nts: May add to ED labs Performed By: #### L 100.0100, L503.6550, L500.4050, L503.6030, L501.5200 ####[facility] [address] [place], [address] Glucose [Mass/Vol] 142 mg/dL High 74-106 [facility] Comment on above: Order Comment: Comme nts: May add to ED labs Result Comment: Fast ing Glucose result greater than or equal to 126 mg/dLsuggests DIABETES MELLITUS per A.D.A. criteria. Performed By: #### L 100.0100, L503.6550, L500.4050, L503.6030, L501.5200 ####[facility] [address] [place], [address] Potassium [Moles/Vol] 4.4 mmol/L Normal 3.5-5.1 [facility] Comment on above: Order Comment: Commbrisa nts: May add to ED labs Performed By: #### L 100.0100, L503.6550, L500.4050, L503.6030, L501.5200 ####[facility] [address] [place], [address] Sodium [Moles/Vol] 142 mmol/L Normal 136-145 [facility] Comment on above: Order Comment: Commbrisa nts: May add to ED labs Performed By: #### L 100.0100, L503.6550, L500.4050, L503.6030, L501.5200 ####[facility] [address] [place], [address] T PROT 6.4 g/dL Normal 6.4-8.2 [facility] Comment on above: Order Comment: Comme nts: May add to ED labs Performed By: #### L 100.0100, L503.6550, L500.4050, L503.6030, L501.5200 ####[facility] [address] [place], [address] Urea nitrogen [Mass/Vol] 97 mg/dL High 7-18 [facility] Comment on above: Order Comment: Comme nts: May add to ED labs Performed By: #### L 100.0100, L503.6550, L500.4050, L503.6030, L501.5200 ####[facility] [address] [place], [address] Consultation - Cardiologyon 12-07-2023 Consultation - Cardiology Normal [facility] Consultation - Nephrologyon 12-07-2023 Consultation - Nephrology Normal [facility] Echo Limited w/Contraston Echo Limited w/Contrast Normal [facility] Ferritinon 12-07-2023 Ferritin [Mass/Vol] 37 ng/mL Normal 26-388 [facility] Comment on above: Order Comment: Comme nts: May add to ED labs Performed By: #### L 100.0100, L503.6550, L500.4050, L503.6030, L501.5200 ####[facility] [address] [place], [address] Iron+Iron Binding Capacityon 12-07-2023 Iron [Mass/Vol] 208 ug/dL High 65-175 [facility] Comment on above: Order Comment: Comme nts: May add to ED labs Performed By: #### L 100.0100, L503.6550, L500.4050, L503.6030, L501.5200 ####[facility] [address] [place], [address] IRON SATURATION 78.8 High 15.0-55.0 [facility] Comment on above: Order Comment: Comme nts: May add to ED labs Performed By: #### L 100.0100, L503.6550, L500.4050, L503.6030, L501.5200 ####[facility] [address] [place], [address] TIBC 264 ug/dL Normal 250-450 [facility] Comment on above: Order Comment: Comme nts: May add to ED labs Performed By: #### L 100.0100, L503.6550, L500.4050, L503.6030, L501.5200 ####[facility] [address] [place], [address] Magnesiumon 12-07-2023 Magnesium [Mass/Vol] 1.4 mg/dL Low 1.6-2.6 [facility] Comment on above: Order Comment: Comme nts: May add to ED labs Performed By: #### L 100.0100, L503.6550, L500.4050, L503.6030, L501.5200 ####[facility] [address] [place], [address] BNP,B-Type NATRIURETIC PEPTI Nico 12-06-2023 Natriuretic peptide B (Bld) [Mass/Vol] 149.9 pg/mL High 0-100 [facility] Comment on above: Performed By: #### L 500.4050, L100.0100, L501.5425, L503.6620 ####[facility] [address] [place], [address] BRCon 12-06-2023 RC Normal [facility] Comment on above: Result Comment: [id number] ON RC TRANSFUSED 12/06/23 1648 Performed By: #### B TS, BR ####[facility] [address] [place], [address] Result Comment: [id number] AN RC TRANSFUSED 12/08/23 [id number] AN RC TRANSFUSED 12/09/23 0038 Performed By: #### B RC ####[facility] [address] [place], [address] Bedside Glucoseon 12-06-2023 FINGERSTICK GLU 271 mg/dL High 74-106 [facility] Comment on above: Result Comment: MYKE GEMENT OF PATIENT CARE PER NURSING PROTOCOL Performed By: #### L 501.080 ####[facility] [address] [place], [address] FINGERSTICK GLU 267 mg/dL High 74-106 [facility] Comment on above: Result Comment: MYKE GEMENT OF PATIENT CARE PER NURSING PROTOCOL Performed By: #### L 501.080 ####[facility] [address] [place], [address] CBC W/Diff, Automatedon 11-11 Absolute Lymph 0.62 X10 3/uL Low 0.83-4.51 [facility] Comment on above: Performed By: #### L 500.4050, L100.0100, L501.5425, L503.6620 ####[facility] [address] [place], [address] Absolute Neut 4.3 X10 3/uL Normal 2.0-7.7 [facility] Comment on above: Performed By: #### L 500.4050, L100.0100, L501.5425, L503.6620 ####[facility] [address] [place], [address] Basophils/100 WBC (Bld) 0.2 % Normal 0-1 [facility] Comment on above: Performed By: #### L 500.4050, L100.0100, L501.5425, L503.6620 ####[facility] [address] [place], [address] Eosinophils/100 WBC (Bld) 3.3 % Normal 0-5 [facility] Comment on above: Performed By: #### L 500.4050, L100.0100, L501.5425, L503.6620 ####[facility] [address] [place], [address] Erythrocyte distribution width (RBC) [Ratio] 13.4 % Normal 11.6-14.6 [facility] Comment on above: Performed By: #### L 500.4050, L100.0100, L501.5425, L503.6620 ####[facility] [address] [place], [address] Hematocrit (Bld) [Volume fraction] 21.9 % Low 40-54 [facility] Comment on above: Performed By: #### L 500.4050, L100.0100, L501.5425, L503.6620 ####[facility] [address] [place], [address] Hemoglobin (Bld) [Mass/Vol] 6.8 g/dL Low 13.0-16.5 [facility] Comment on above: Performed By: #### L 500.4050, L100.0100, L501.5425, L503.6620 ####[facility] [address] [place], [address] IG% 0.400 Normal 0.0-0.9 [facility] Comment on above: Result Comment: IG% - Immature Granulocytes (promyelocytes, myelocytes andmetamyelocytes) > 1% indicates that a LEFT SHIFT is Present. Performed By: #### L 500.4050, L100.0100, L501.5425, L503.6620 ####[facility] [address] [place], [address] Lymphocytes/100 WBC (Bld) 11.3 % Low 19-41 [facility] Comment on above: Performed By: #### L 500.4050, L100.0100, L501.5425, L503.6620 ####[facility] [address] [place], [address] MCH (RBC) [Entitic mass] 30.2 pg Normal 27.0-32.0 [facility] Comment on above: Performed By: #### L 500.4050, L100.0100, L501.5425, L503.6620 ####[facility] [address] [place], [address] MCHC (RBC) [Mass/Vol] 31.1 g/dL Low 32-36 [facility] Comment on above: Performed By: #### L 500.4050, L100.0100, L501.5425, L503.6620 ####[facility] [address] [place], [address] MCV (RBC) [Entitic vol] 97.3 fL High 80-94 [facility] Comment on above: Performed By: #### L 500.4050, L100.0100, L501.5425, L503.6620 ####[facility] [address] [place], [address] Monocytes/100 WBC (Bld) 6.4 % Normal 0-10 [facility] Comment on above: Performed By: #### L 500.4050, L100.0100, L501.5425, L503.6620 ####[facility] [address] [place], [address] Neutrophils/100 WBC (Bld) 78.4 % High 47-70 [facility] Comment on above: Performed By: #### L 500.4050, L100.0100, L501.5425, L503.6620 ####[facility] [address] [place], [address] Nucleated RBC (Bld) [#/Vol] 0 10*3/uL Normal 0-5 [facility] Comment on above: Performed By: #### L 500.4050, L100.0100, L501.5425, L503.6620 ####[facility] [address] [place], [address] Platelet mean volume (Bld) [Entitic vol] 11.9 fL Normal 6.2-12.0 [facility] Comment on above: Performed By: #### L 500.4050, L100.0100, L501.5425, L5.6620 ####[facility] [address] [place], [address] Platelets (Bld) [#/Vol] 75 10*3/uL Low 150-450 [facility] Comment on above: Performed By: #### L 500.4050, L100.0100, L501.5425, L503.6620 ####[facility] [address] [place], [address] RBC (Bld) [#/Vol] 2.25 10*6/uL Low 4.6-6.2 [facility] Comment on above: Performed By: #### L 500.4050, L100.0100, L501.5425, L503.6620 ####[facility] [address] [place], [address] RDW SD 47.7 fl High 35.1-43.9 [facility] Comment on above: Performed By: #### L 500.4050, L100.0100, L501.5425, L503.6620 ####[facility] [address] [place], [address] WBC (Bld) [#/Vol] 5.5 10*3/uL Normal 4.4-11.0 [facility] Comment on above: Performed By: #### L 500.4050, L100.0100, L501.5425, L503.6620 ####[facility] [id number] [place], [address] Chest 1 View (Portable)on Chest 1 View (Portable) Normal [facility] Comprehensive Metabolic Prof ilon 12-06-2023 Albumin [Mass/Vol] 3.0 g/dL Low 3.2-5.0 [facility] Comment on above: Order Comment: 1Y Performed By: #### L 500.4050, L100.0100, L501.5425, L503.6620 ####[facility] [address] [place], [address] Albumin/Globulin [Mass ratio] 0.9 {ratio} Normal 0.9-2.4 [facility] Comment on above: Order Comment: 1Y Performed By: #### L 500.4050, L100.0100, L501.5425, L503.6620 ####[facility] [address] [place], [address] ALK P 67 U/L Normal 45-117 [facility] Comment on above: Order Comment: 1Y Performed By: #### L 500.4050, L100.0100, L501.5425, L503.6620 ####[facility] [address] [place], [address] ALT [Catalytic activity/Vol] 19 U/L Normal 16-61 [facility] Comment on above: Order Comment: 1Y Performed By: #### L 500.4050, L100.0100, L501.5425, L503.6620 ####[facility] [address] [place], [address] AST [Catalytic activity/Vol] 12 U/L Low 15-37 [facility] Comment on above: Order Comment: 1Y Performed By: #### L 500.4050, L100.0100, L501.5425, L503.6620 ####[facility] [address] [place], [address] Bilirubin [Mass/Vol] 0.40 mg/dL Normal 0.20-1.00 [facility] Comment on above: Order Comment: 1Y Result Comment: For patients on eltrombopag therapy, use of Dimension [place] TBIL is not recommended. Performed By: #### L 500.4050, L100.0100, L501.5425, L503.6620 ####[facility] [address] [place], [address] BUN/CRE 29.4 RATIO High 10-20 [facility] Comment on above: Order Comment: 1Y Performed By: #### L 500.4050, L100.0100, L501.5425, L503.6620 ####[facility] [address] [place], [address] CA,Total 8.1 mg/dL Low 8.5-10.1 [facility] Comment on above: Order Comment: 1Y Performed By: #### L 500.4050, L100.0100, L501.5425, L503.6620 ####[facility] [address] [place], [address] Chloride [Moles/Vol] 106 mmol/L Normal 98-107 [facility] Comment on above: Order Comment: 1Y Performed By: #### L 500.4050, L100.0100, L501.5425, L503.6620 ####[facility] [address] [place], [address] CO2 [Moles/Vol] 26.0 mmol/L Normal 21.0-32.0 [facility] Comment on above: Order Comment: 1Y Performed By: #### L 500.4050, L100.0100, L501.5425, L503.6620 ####[facility] [address] [place], [address] Creatinine [Mass/Vol] 3.44 mg/dL High 0.70-1.30 [facility] Comment on above: Order Comment: 1Y Result Comment: The validity of the calculated GFR GFRAA in patients over70 years has not been determined. Clinical correlation isessential. Performed By: #### L 500.4050, L100.0100, L501.5425, L503.6620 ####[facility] [address] [place], [address] ECRCL 16.67 ml/min Normal [facility] Comment on above: Order Comment: 1Y Performed By: #### L 500.4050, L100.0100, L501.5425, L503.6620 ####[facility] [address] [place], [address] EST GFR - AA 22 mL/min Low >60 [facility] Comment on above: Order Comment: 1Y Result Comment: Afri can [place] GFR Calc Performed By: #### L 500.4050, L100.0100, L501.5425, L503.6620 ####[facility] [address] [place], [address] GAP 10 Normal 5-15 [facility] Comment on above: Order Comment: 1Y Performed By: #### L 500.4050, L100.0100, L501.5425, L503.6620 ####[facility] [address] [place], [address] GFR/1.73 sq M.predicted among non-blacks MDRD (S/P/Bld) [Vol rate/Area] 18 mL/min/{1.73_m2} Low >60 [facility] Comment on above: Order Comment: 1Y Result Comment: Non- GFR Calc Performed By: #### L 500.4050, L100.0100, L501.5425, L503.6620 ####[facility] [address] [place], [address] Globulin (S) [Mass/Vol] 3.3 g/dL Normal 2.2-4.2 [facility] Comment on above: Order Comment: 1Y Performed By: #### L 500.4050, L100.0100, L501.5425, L503.6620 ####[facility] [address] [place], [address] Glucose [Mass/Vol] 314 mg/dL High 74-106 [facility] Comment on above: Order Comment: 1Y Result Comment: Gluc ose result greater than or equal to 200 mg/dLsuggests DIABETES MELLITUS per A.D.A. criteria. Performed By: #### L 500.4050, L100.0100, L501.5425, L503.6620 ####[facility] [address] [place], [address] Potassium [Moles/Vol] 4.0 mmol/L Normal 3.5-5.1 [facility] Comment on above: Order Comment: 1Y Performed By: #### L 500.4050, L100.0100, L501.5425, L503.6620 ####[facility] [address] [place], [address] Sodium [Moles/Vol] 142 mmol/L Normal 136-145 [facility] Comment on above: Order Comment: 1Y Performed By: #### L 500.4050, L100.0100, L501.5425, L503.6620 ####[facility] [address] [place], [address] T PROT 6.3 g/dL Low 6.4-8.2 [facility] Comment on above: Order Comment: 1Y Performed By: #### L 500.4050, L100.0100, L501.5425, L503.6620 ####[facility] [address] [place], [address] Urea nitrogen [Mass/Vol] 101 mg/dL Invalid Interpretation Code 7-18 [facility] Comment on above: Order Comment: 1Y Result Comment: Crit ical Result(s) Called at: 14:23:51 12/06/2023 by:Didier Xiao to [facility]. Results read back by same. Performed By: #### L 500.4050, L100.0100, L501.5425, L503.6620 ####[facility] [address] [place], [address] Emergency Department Summary on 12-06-2023 Emergency Department Summary Normal [facility] H AND P Exam - Hospitaliston 12-06-2023 H&P Exam - Hospitalist Normal [facility] Hemoglobinon 12-06-2023 Hemoglobin (Bld) [Mass/Vol] 7.8 g/dL Low 13.0-16.5 [facility] Comment on above: Performed By: #### L 100.1300 ####[facility] [address] [place], [address] Kidney and Bladderon 024 Kidney and Bladder Normal [facility] L501.4020on 12-06-2023 TROPONIN-I HS 5240 pg/mL Invalid Interpretation Code 3.0-78.0 [facility] Comment on above: Order Comment: 'TROP ' Serial specimen #1, #2 or #3: 3 Result Comment: Plea se Note: New Test Units and Gender Specific Reference Ranges. For more information see Policy Stat Procedure [place] High Sensitivity Troponin (TNIH) and attachments. Performed By: #### L 501.4020 ####[facility] [address] [place], [address] TROPONIN-I HS 2618 pg/mL Invalid Interpretation Code 3.0-78.0 [facility] Comment on above: Result Comment: Crit ical Result(s) Called at: 19:14:36 12/06/2023 by: SARITHA. Results read back by Adam Please Note: New Test Units and Gender Specific Reference Ranges. For more information see Policy Stat Procedure [place] High Sensitivity Troponin (TNIH) and attachments. Performed By: #### L 501.4020 ####[facility] [address] [place], [address] L501.5425on 12-06-2023 TROPONIN-I HS 146 pg/mL Invalid Interpretation Code 3.0-78.0 [facility] Comment on above: Order Comment: 1Y Result Comment: Crit ical Result(s) Called at: 14:23:51 12/06/2023 by:Didier Xiao to caio. Results read back by abdelrahman. Please Note: New Test Units and Gender Specific Reference Ranges. For more information see Policy Stat Procedure [place] High Sensitivity Troponin (TNIH) and attachments. Performed By: #### L 500.4050, L100.0100, L501.5425, L503.6620 ####[facility] [address] [place], [address] M100.678on 12-06-2023 M100.678 Pending SARS-CoV-2 (COVID 19) Negative INFLUENZA A Negative INFLUENZA B Negative RSV PCR Negative Normal [facility] Comment on above: Performed By: #### M 100.678 ####[facility] [address] [place], [address] Type AND Screenon 12-06-2023 Ab SCREEN GEL Negative Normal [facility] Comment on above: Order Comment: CMV N EG? NNumber of units to transfuse: 1Is pt's Hgb is = to 7.0 mg/dl or Hct </= 21%? YReason for Ordering Blood: ChronicIs there symptomatic anemia? Shin the blood/blood products to be transfused? YIs the patient having/had surgery? NWdesean Elaine Performed By: #### B TS, BRC ####[facility] [address] [place], [address] ABO and Rh group Nom (Bld) Blood group A Rh(D) negative Normal [facility] Comment on above: Order Comment: CMV N EG? NNumber of units to transfuse: 1Is pt's Hgb is = to 7.0 mg/dl or Hct </= 21%? YReason for Ordering Blood: ChronicIs there symptomatic anemia? Shin the blood/blood products to be transfused? YIs the patient having/had surgery? Ashlee Elaine Performed By: #### B TS, BRC ####[facility] [address] [place], [address] Urea Nitrogen, Urineon 12-05 URINE UREA 625 mg/dL Normal NO RANGE EST. [facility] Comment on above: Performed By: #### L 500.9400, L502.0715 ####[facility] [address] [place], [address] Urine Electrolytes- Randomon 12-06-2023 Sodium (U) [Moles/Vol] 42 mmol/L Normal Not Establ. [facility] Comment on above: Performed By: #### L 500.9400, L502.0715 ####[facility] [address] [place], [address] UR CL 15 mmol/L Normal Not Establ. [facility] Comment on above: Performed By: #### L 500.9400, L502.0715 ####[facility] [address] [place], [address] UR K 24.0 mmol/L Normal Not Establ. [facility] Comment on above: Performed By: #### L 500.9400, L502.0715 ####[facility] [address] [place], [address] Venous Blood Gason 4 Blood Gas Type DAYANA Normal [facility] Comment on above: Performed By: #### L 9000.0810 ####[facility] [address] [place], [address] CO2 [Moles/Vol] 27 mmol/L Normal 23-33 [facility] Comment on above: Performed By: #### L 9000.0810 ####[facility] [address] [place], [address] FI02 3.0 Normal [facility] Comment on above: Performed By: #### L 9000.0810 ####[facility] [address] [place], [address] HCO3 (Bld) [Moles/Vol] 25 mmol/L Normal 22-26 [facility] Comment on above: Performed By: #### L 9000.0810 ####[facility] [address] [place], [address] O2 Delivery Dev Cannula Normal [facility] Comment on above: Performed By: #### L 9000.0810 ####[facility] [address] [place], [address] SITE Not entered Normal [facility] Comment on above: Performed By: #### L 9000.0810 ####[facility] [address] [place], [address] VBG BE 0 mmol/L Normal -1.0-3.5 [facility] Comment on above: Performed By: #### L 9000.0810 ####[facility] [address] [place], [address] VBG pCO2 42.6 mmHg Normal 41-51 [facility] Comment on above: Performed By: #### L 9000.0810 ####[facility] [address] [place], [address] VBG pH 7.38 Normal 7.32-7.42 [facility] Comment on above: Performed By: #### L 9000.0810 ####[facility] [address] [place], [address] VBG PO2 53 mmHg High 25-40 [facility] Comment on above: Performed By: #### L 9000.0810 ####[facility] [address] [place], [address] VBG SO2 87 High 50-70 [facility] Comment on above: Performed By: #### L 9000.0810 ####[facility] [address] [place], [address] Basic Metabolic Profile (BMP )on 12-05-2023 BUN/CRE 31.3 RATIO High 10-20 [facility] Comment on above: Order Comment: ORDER S INTERNALLY WERE ALREADY DONE Performed By: #### L 500.2500 ####[facility] [address] [place], [address] CA,Total 8.3 mg/dL Low 8.5-10.1 [facility] Comment on above: Order Comment: ORDER S INTERNALLY WERE ALREADY DONE Performed By: #### L 500.2500 ####[facility] [address] [place], [address] Chloride [Moles/Vol] 104 mmol/L Normal 98-107 [facility] Comment on above: Order Comment: ORDER S INTERNALLY WERE ALREADY DONE Performed By: #### L 500.2500 ####[facility] [address] [place], [address] CO2 [Moles/Vol] 30.0 mmol/L Normal 21.0-32.0 [facility] Comment on above: Order Comment: ORDER S INTERNALLY WERE ALREADY DONE Performed By: #### L 500.2500 ####[facility] [address] [place], [address] Creatinine [Mass/Vol] 3.23 mg/dL High 0.70-1.30 [facility] Comment on above: Order Comment: ORDER S INTERNALLY WERE ALREADY DONE Result Comment: The validity of the calculated GFR GFRAA in patients over70 years has not been determined. Clinical correlation isessential. Performed By: #### L 500.2500 ####[facility] [address] [place], [address] EST GFR - AA 24 mL/min Low >60 [facility] Comment on above: Order Comment: ORDER S INTERNALLY WERE ALREADY DONE Result Comment: Afri can [place] GFR Calc Performed By: #### L 500.2500 ####[facility] [address] [place], [address] GAP 7 Normal 5-15 [facility] Comment on above: Order Comment: ORDER S INTERNALLY WERE ALREADY DONE Performed By: #### L 500.2500 ####[facility] [address] [place], [address] GFR/1.73 sq M.predicted among non-blacks MDRD (S/P/Bld) [Vol rate/Area] 20 mL/min/{1.73_m2} Low >60 [facility] Comment on above: Order Comment: ORDER S INTERNALLY WERE ALREADY DONE Result Comment: Non- GFR Calc Performed By: #### L 500.2500 ####[facility] [address] [place], [address] Glucose [Mass/Vol] 151 mg/dL High 74-106 [facility] Comment on above: Order Comment: ORDER S INTERNALLY WERE ALREADY DONE Result Comment: Fast ing Glucose result greater than or equal to 126 mg/dLsuggests DIABETES MELLITUS per A.D.A. criteria. Performed By: #### L 500.2500 ####[facility] [address] [place], [address] Potassium [Moles/Vol] 4.0 mmol/L Normal 3.5-5.1 [facility] Comment on above: Order Comment: ORDER S INTERNALLY WERE ALREADY DONE Performed By: #### L 500.2500 ####[facility] [address] [place], [address] Sodium [Moles/Vol] 141 mmol/L Normal 136-145 [facility] Comment on above: Order Comment: ORDER S INTERNALLY WERE ALREADY DONE Performed By: #### L 500.2500 ####[facility] [address] [place], [address] Urea nitrogen [Mass/Vol] 101 mg/dL Invalid Interpretation Code 7-18 [facility] Comment on above: Order Comment: ORDER S INTERNALLY WERE ALREADY DONE Result Comment: Crit ical Result(s) Called at: 14:07:14 12/05/2023 by: JEANETTE TO ANNETTA GAYLE. Results read back by same. Performed By: #### L 500.2500 ####[facility] [address] [place], [address] Abdomen/Pelvis W IV Cont ONL Yon 12-02-2023 Abdomen/Pelvis W IV Cont ONLY Normal [facility] Basic Metabolic Profile (BMP )on 12-02-2023 BUN/CRE 35.8 RATIO High 10-20 [facility] Comment on above: Performed By: #### L 500.2500, L100.0100 ####[facility] [address] [place], [address] CA,Total 8.8 mg/dL Normal 8.5-10.1 [facility] Comment on above: Performed By: #### L 500.2500, L100.0100 ####[facility] [address] [place], [address] Chloride [Moles/Vol] 104 mmol/L Normal 98-107 [facility] Comment on above: Performed By: #### L 500.2500, L100.0100 ####[facility] [address] [place], [address] CO2 [Moles/Vol] 30.0 mmol/L Normal 21.0-32.0 [facility] Comment on above: Performed By: #### L 500.2500, L100.0100 ####[facility] [address] [place], [address] Creatinine [Mass/Vol] 2.43 mg/dL High 0.70-1.30 [facility] Comment on above: Result Comment: The validity of the calculated GFR GFRAA in patients over70 years has not been determined. Clinical correlation isessential. Performed By: #### L 500.2500, L100.0100 ####[facility] [address] [place], [address] ECRCL 22.97 ml/min Normal [facility] Comment on above: Performed By: #### L 500.2500, L100.0100 ####[facility] [address] [place], [address] EST GFR - AA 33 mL/min Low >60 [facility] Comment on above: Result Comment: Afri can [place] GFR Calc Performed By: #### L 500.2500, L100.0100 ####[facility] [address] [place], [address] GAP 6 Normal 5-15 [facility] Comment on above: Performed By: #### L 500.2500, L100.0100 ####[facility] [address] [place], [address] GFR/1.73 sq M.predicted among non-blacks MDRD (S/P/Bld) [Vol rate/Area] 27 mL/min/{1.73_m2} Low >60 [facility] Comment on above: Result Comment: Non- GFR Calc Performed By: #### L 500.2500, L100.0100 ####[facility] [address] [place], [address] Glucose [Mass/Vol] 324 mg/dL High 74-106 [facility] Comment on above: Result Comment: Gluc ose result greater than or equal to 200 mg/dLsuggests DIABETES MELLITUS per A.D.A. criteria. Performed By: #### L 500.2500, L100.0100 ####[facility] [address] [place], [address] Potassium [Moles/Vol] 4.7 mmol/L Normal 3.5-5.1 [facility] Comment on above: Performed By: #### L 500.2500, L100.0100 ####[facility] [address] [place], [address] Sodium [Moles/Vol] 140 mmol/L Normal 136-145 [facility] Comment on above: Performed By: #### L 500.2500, L100.0100 ####[facility] [address], [address] Urea nitrogen [Mass/Vol] 87 mg/dL High 7-18 [facility] Comment on above: Performed By: #### L 500.2500, L100.0100 ####[facility] [address] [place], [address] CBC W/Diff, Automatedon 11-11 Absolute Lymph 0.78 X10 3/uL Low 0.83-4.51 [facility] Comment on above: Performed By: #### L 500.2500, L100.0100 ####[facility] [address] [place], [address] Absolute Neut 6.5 X10 3/uL Normal 2.0-7.7 [facility] Comment on above: Performed By: #### L 500.2500, L100.0100 ####[facility] [address] [place], [address] Basophils/100 WBC (Bld) 0.1 % Normal 0-1 [facility] Comment on above: Performed By: #### L 500.2500, L100.0100 ####[facility] [address], [address] Eosinophils/100 WBC (Bld) 2.7 % Normal 0-5 [facility] Comment on above: Performed By: #### L 500.2500, L100.0100 ####[facility] [address] [place], [address] Erythrocyte distribution width (RBC) [Ratio] 13.3 % Normal 11.6-14.6 [facility] Comment on above: Performed By: #### L 500.2500, L100.0100 ####[facility] [address] [place], [address] Hematocrit (Bld) [Volume fraction] 23.9 % Low 40-54 [facility] Comment on above: Performed By: #### L 500.2500, L100.0100 ####[facility] [address] [place], [address] Hemoglobin (Bld) [Mass/Vol] 7.7 g/dL Low 13.0-16.5 [facility] Comment on above: Performed By: #### L 500.2500, L100.0100 ####[facility] [address] [place], [address] IG% 0.300 Normal 0.0-0.9 [facility] Comment on above: Result Comment: IG% - Immature Granulocytes (promyelocytes, myelocytes andmetamyelocytes) > 1% indicates that a LEFT SHIFT is Present. Performed By: #### L 500.2500, L100.0100 ####[facility] [address] [place], [address] Lymphocytes/100 WBC (Bld) 9.9 % Low 19-41 [facility] Comment on above: Performed By: #### L 500.2500, L100.0100 ####[facility] [address] [place], [address] MCH (RBC) [Entitic mass] 30.7 pg Normal 27.0-32.0 [facility] Comment on above: Performed By: #### L 500.2500, L100.0100 ####[facility] [address] [place], [address] MCHC (RBC) [Mass/Vol] 32.2 g/dL Normal 32-36 [facility] Comment on above: Performed By: #### L 500.2500, L100.0100 ####[facility] [address] [place], [address] MCV (RBC) [Entitic vol] 95.2 fL High 80-94 [facility] Comment on above: Performed By: #### L 500.2500, L100.0100 ####[facility] [address], [address] Monocytes/100 WBC (Bld) 5.3 % Normal 0-10 [facility] Comment on above: Performed By: #### L 500.2500, L100.0100 ####[facility] [address] [place], [address] Neutrophils/100 WBC (Bld) 81.7 % High 47-70 [facility] Comment on above: Performed By: #### L 500.2500, L100.0100 ####[facility] [address] [place], [address] Nucleated RBC (Bld) [#/Vol] 0 10*3/uL Normal 0-5 [facility] Comment on above: Performed By: #### L 500.2500, L100.0100 ####[facility] [address] [place], [address] Platelet mean volume (Bld) [Entitic vol] 11.1 fL Normal 6.2-12.0 [facility] Comment on above: Performed By: #### L 500.2500, L100.0100 ####[facility] [address] [place], [address] Platelets (Bld) [#/Vol] 85 10*3/uL Low 150-450 [facility] Comment on above: Performed By: #### L 500.2500, L100.0100 ####[facility] [address] [place], [address] RBC (Bld) [#/Vol] 2.51 10*6/uL Low 4.6-6.2 [facility] Comment on above: Performed By: #### L 500.2500, L100.0100 ####[facility] [address] [place], [address] RDW SD 46.6 fl High 35.1-43.9 [facility] Comment on above: Performed By: #### L 500.2500, L100.0100 ####[facility] [address] [place], [address] WBC (Bld) [#/Vol] 7.9 10*3/uL Normal 4.4-11.0 [facility] Comment on above: Performed By: #### L 500.2500, L100.0100 ####[facility] [address] [place], [address] Emergency Department Summary on 12-02-2023 Emergency Department Summary Normal [facility] Urinalysis, Completeon 12-01 BACTERIA 0 SEEN Normal None [facility]en [facility] Center Comment on above: Order Comment: YUKI CTOR TO SPECIFY Performed By: #### L 400.0001 ####[facility] [address] [place], [address] EPI,SQUAMOUS 0 SEEN Normal 0-5 [facility] Comment on above: Order Comment: COLLE CTOR TO SPECIFY Performed By: #### L 400.0001 ####[facility] [address] [place], [address] Mucus Ql (Urine sed) 0 SEEN Normal [facility] Comment on above: Order Comment: COLLE CTOR TO SPECIFY Performed By: #### L 400.0001 ####[facility] [address] [place], [address] RBC 0 SEEN Normal 0-5 [facility] Comment on above: Order Comment: COLLE CTOR TO SPECIFY Performed By: #### L 400.0001 ####[facility] [address] [place], [address] WBC 0 SEEN Normal 0-5 [facility] Comment on above: Order Comment: COLLE CTOR TO SPECIFY Performed By: #### L 400.0001 ####[facility] [address] [place], [address] Basic Metabolic Profile (BMP )on 11-23-2023 BUN/CRE 40.1 RATIO High 10-20 [facility] Comment on above: Performed By: #### L 500.2500, L100.0100 ####[facility] [address] [place], [address] CA,Total 8.7 mg/dL Normal 8.5-10.1 [facility] Comment on above: Performed By: #### L 500.2500, L100.0100 ####[facility] [address] [place], [address] Chloride [Moles/Vol] 105 mmol/L Normal 98-107 [facility] Comment on above: Performed By: #### L 500.2500, L100.0100 ####[facility] [address] [place], [address] CO2 [Moles/Vol] 23.0 mmol/L Normal 21.0-32.0 [facility] Comment on above: Performed By: #### L 500.2500, L100.0100 ####[facility] [address] [place], [address] Creatinine [Mass/Vol] 2.84 mg/dL High 0.70-1.30 [facility] Comment on above: Result Comment: The validity of the calculated GFR GFRAA in patients over70 years has not been determined. Clinical correlation isessential. Performed By: #### L 500.2500, L100.0100 ####[facility] [address] [place], [address] EST GFR - AA 27 mL/min Low >60 [facility] Comment on above: Result Comment: Afri can [place] GFR Calc Performed By: #### L 500.2500, L100.0100 ####[facility] [address] [place], [address] GAP 11 Normal 5-15 [facility] Comment on above: Performed By: #### L 500.2500, L100.0100 ####[facility] [address] [place], [address] GFR/1.73 sq M.predicted among non-blacks MDRD (S/P/Bld) [Vol rate/Area] 23 mL/min/{1.73_m2} Low >60 [facility] Comment on above: Result Comment: Non- GFR Calc Performed By: #### L 500.2500, L100.0100 ####[facility] [address] [place], [address] Glucose [Mass/Vol] 457 mg/dL Invalid Interpretation Code 74-106 [facility] Comment on above: Result Comment: Crit ical Result(s) Called at: 13:43:59 11/23/2023 by: Jeremy Clark. Results read back by same.Glucose result greater than or equal to 200 mg/dLsuggests DIABETES MELLITUS per A.D.A. criteria. Performed By: #### L 500.2500, L100.0100 ####[facility] [address] [place], [address] Potassium [Moles/Vol] 4.7 mmol/L Normal 3.5-5.1 [facility] Comment on above: Performed By: #### L 500.2500, L100.0100 ####[facility] [address] [place], [address] Sodium [Moles/Vol] 139 mmol/L Normal 136-145 [facility] Comment on above: Performed By: #### L 500.2500, L100.0100 ####[facility] [address] [place], [address] Urea nitrogen [Mass/Vol] 114 mg/dL Invalid Interpretation Code 7-18 [facility] Comment on above: Result Comment: Crit ical Result(s) Called at: 13:43:59 11/23/2023 by: Jeremy to Ana M Clark. Results read back by same. Performed By: #### L 500.2500, L100.0100 ####[facility] [address] [place], [address] CBC W/Diff, Automatedon 09-03 14-2023 Absolute Lymph 0.64 X10 3/uL Low 0.83-4.51 [facility] Comment on above: Performed By: #### L 500.2500, L100.0100 ####[facility] [address] [place], [address] Absolute Neut 7.2 X10 3/uL Normal 2.0-7.7 [facility] Comment on above: Performed By: #### L 500.2500, L100.0100 ####[facility] [address] [place], [address] Basophils/100 WBC (Bld) 0.1 % Normal 0-1 [facility] Comment on above: Performed By: #### L 500.2500, L100.0100 ####[facility] [address] [place], [address] Eosinophils/100 WBC (Bld) 0.5 % Normal 0-5 [facility] Comment on above: Performed By: #### L 500.2500, L100.0100 ####[facility] [address] [place], [address] Erythrocyte distribution width (RBC) [Ratio] 14.7 % High 11.6-14.6 [facility] Comment on above: Performed By: #### L 500.2500, L100.0100 ####[facility] [address] [place], [address] Hematocrit (Bld) [Volume fraction] 27.3 % Low 40-54 [facility] Comment on above: Performed By: #### L 500.2500, L100.0100 ####[facility] [address] [place], [address] Hemoglobin (Bld) [Mass/Vol] 8.4 g/dL Low 13.0-16.5 [facility] Comment on above: Performed By: #### L 500.2500, L100.0100 ####[facility] [address] [place], [address] IG% 0.900 Normal 0.0-0.9 [facility] Comment on above: Result Comment: IG% - Immature Granulocytes (promyelocytes, myelocytes andmetamyelocytes) > 1% indicates that a LEFT SHIFT is Present. Performed By: #### L 500.2500, L100.0100 ####[facility] [address] [place], [address] Lymphocytes/100 WBC (Bld) 7.8 % Low 19-41 [facility] Comment on above: Performed By: #### L 500.2500, L100.0100 ####[facility] [address] [place], [address] MCH (RBC) [Entitic mass] 29.8 pg Normal 27.0-32.0 [facility] Comment on above: Performed By: #### L 500.2500, L100.0100 ####[facility] [address] [place], [address] MCHC (RBC) [Mass/Vol] 30.8 g/dL Low 32-36 [facility] Comment on above: Performed By: #### L 500.2500, L100.0100 ####[facility] [address] [place], [address] MCV (RBC) [Entitic vol] 96.8 fL High 80-94 [facility] Comment on above: Performed By: #### L 500.2500, L100.0100 ####[facility] [address] [place], [address] Monocytes/100 WBC (Bld) 3.1 % Normal 0-10 [facility] Comment on above: Performed By: #### L 500.2500, L100.0100 ####[facility] [address] [place], [address] Neutrophils/100 WBC (Bld) 87.6 % High 47-70 [facility] Comment on above: Performed By: #### L 500.2500, L100.0100 ####[facility] [address] [place], [address] Nucleated RBC (Bld) [#/Vol] 0 10*3/uL Normal 0-5 [facility] Comment on above: Performed By: #### L 500.2500, L100.0100 ####[facility] [address] [place], [address] Platelet mean volume (Bld) [Entitic vol] 11.8 fL Normal 6.2-12.0 [facility] Comment on above: Performed By: #### L 500.2500, L100.0100 ####[facility] [address] [place], [address] Platelets (Bld) [#/Vol] 117 10*3/uL Low 150-450 [facility] Comment on above: Performed By: #### L 500.2500, L100.0100 ####[facility] [address] [place], [address] RBC (Bld) [#/Vol] 2.82 10*6/uL Low 4.6-6.2 [facility] Comment on above: Performed By: #### L 500.2500, L100.0100 ####[facility] [address] [place], [address] RDW SD 52.2 fl High 35.1-43.9 [facility] Comment on above: Performed By: #### L 500.2500, L100.0100 ####[facility] [address] [place], [address] WBC (Bld) [#/Vol] 8.2 10*3/uL Normal 4.4-11.0 [facility] Comment on above: Performed By: #### L 500.2500, L100.0100 ####[facility] [address] [place], [address] BNP,B-Type NATRIURETIC PEPTI Nico 11-20-2023 Natriuretic peptide B (Bld) [Mass/Vol] 186.8 pg/mL High 0-100 [facility] Comment on above: Performed By: #### L 503.6620 ####[facility] [address] [place], [address] Basic Metabolic Profile (BMP )on 11-20-2023 BUN/CRE 50.2 RATIO High 10-20 [facility] Comment on above: Performed By: #### L 100.0100, L500.2500 ####[facility] [address] [place], [address] CA,Total 9.6 mg/dL Normal 8.5-10.1 [facility] Comment on above: Performed By: #### L 100.0100, L500.2500 ####[facility] [address] [place], [address] Chloride [Moles/Vol] 107 mmol/L Normal 98-107 [facility] Comment on above: Performed By: #### L 100.0100, L500.2500 ####[facility] [address] [place], [address] CO2 [Moles/Vol] 26.0 mmol/L Normal 21.0-32.0 [facility] Comment on above: Performed By: #### L 100.0100, L500.2500 ####[facility] [address] [place], [address] Creatinine [Mass/Vol] 2.09 mg/dL High 0.70-1.30 [facility] Comment on above: Result Comment: The validity of the calculated GFR GFRAA in patients over70 years has not been determined. Clinical correlation isessential. Performed By: #### L 100.0100, L500.2500 ####[facility] [address] [place], [address] ECRCL 26.58 ml/min Normal [facility] Comment on above: Performed By: #### L 100.0100, L500.2500 ####[facility] [address] [place], [address] EST GFR - AA 39 mL/min Low >60 [facility] Comment on above: Result Comment: Afri can [place] GFR Calc Performed By: #### L 100.0100, L500.2500 ####[facility] [address] [place], [address] GAP 7 Normal 5-15 [facility] Comment on above: Performed By: #### L 100.0100, L500.2500 ####[facility] [address] [place], [address] GFR/1.73 sq M.predicted among non-blacks MDRD (S/P/Bld) [Vol rate/Area] 32 mL/min/{1.73_m2} Low >60 [facility] Comment on above: Result Comment: Non- GFR Calc Performed By: #### L 100.0100, L500.2500 ####[facility] [address] [place], [address] Glucose [Mass/Vol] 212 mg/dL High 74-106 [facility] Comment on above: Result Comment: Gluc ose result greater than or equal to 200 mg/dLsuggests DIABETES MELLITUS per A.D.A. criteria. Performed By: #### L 100.0100, L500.2500 ####[facility] [address] [place], [address] Potassium [Moles/Vol] 4.7 mmol/L Normal 3.5-5.1 [facility] Comment on above: Performed By: #### L 100.0100, L500.2500 ####[facility] [address] [place], [address] Sodium [Moles/Vol] 140 mmol/L Normal 136-145 [facility] Comment on above: Performed By: #### L 100.0100, L500.2500 ####[facility] [address] [place], [address] Urea nitrogen [Mass/Vol] 105 mg/dL Invalid Interpretation Code 7-18 [facility] Comment on above: Result Comment: Crit ical Result(s) Called at: 07:44:50 11/20/2023 by: TUCKER Wilson. Results read back by same. Performed By: #### L 100.0100, L500.2500 ####[facility] [address] [place], [address] Bedside Glucoseon 11-20-2023 FINGERSTICK GLU 295 mg/dL High 74-106 [facility] Comment on above: Result Comment: MYKE GEMENT OF PATIENT CARE PER NURSING PROTOCOL Performed By: #### L 501.080 ####[facility] [address] [place], [address] FINGERSTICK GLU 285 mg/dL High 74-106 [facility] Comment on above: Result Comment: MYKE GEMENT OF PATIENT CARE PER NURSING PROTOCOL Performed By: #### L 501.080 ####[facility] [address] [place], [address] FINGERSTICK GLU 194 mg/dL High 74-106 [facility] Comment on above: Result Comment: MYKE GEMENT OF PATIENT CARE PER NURSING PROTOCOL Performed By: #### L 501.080 ####[facility] [address] [place], [address] CBC W/Diff, Automatedon 09-1 0-4 Absolute Lymph 0.66 X10 3/uL Low 0.83-4.51 [facility] Comment on above: Performed By: #### L 100.0100, L500.2500 ####[facility] [address] [place], [address] Absolute Neut 9.9 X10 3/uL High 2.0-7.7 [facility] Comment on above: Performed By: #### L 100.0100, L500.2500 ####[facility] [address] [place], [address] Basophils/100 WBC (Bld) 0.0 % Normal 0-1 [facility] Comment on above: Performed By: #### L 100.0100, L500.2500 ####[facility] [address] [place], [address] Eosinophils/100 WBC (Bld) 0.0 % Normal 0-5 [facility] Comment on above: Performed By: #### L 100.0100, L500.2500 ####[facility] [address] [place], [address] Erythrocyte distribution width (RBC) [Ratio] 14.8 % High 11.6-14.6 [facility] Comment on above: Performed By: #### L 100.0100, L500.2500 ####[facility] [address] [place], [address] Hematocrit (Bld) [Volume fraction] 24.8 % Low 40-54 [facility] Comment on above: Performed By: #### L 100.0100, L500.2500 ####[facility] [address] [place], [address] Hemoglobin (Bld) [Mass/Vol] 8.1 g/dL Low 13.0-16.5 [facility] Comment on above: Performed By: #### L 100.0100, L500.2500 ####[facility] [address] [place], [address] IG% 0.700 Normal 0.0-0.9 [facility] Comment on above: Result Comment: IG% - Immature Granulocytes (promyelocytes, myelocytes andmetamyelocytes) > 1% indicates that a LEFT SHIFT is Present. Performed By: #### L 100.0100, L500.2500 ####[facility] [address] [place], [address] Lymphocytes/100 WBC (Bld) 6.1 % Low 19-41 [facility] Comment on above: Performed By: #### L 100.0100, L500.2500 ####[facility] [address] [place], [address] MCH (RBC) [Entitic mass] 31.2 pg Normal 27.0-32.0 [facility] Comment on above: Performed By: #### L 100.0100, L500.2500 ####[facility] [address] [place], [address] MCHC (RBC) [Mass/Vol] 32.7 g/dL Normal 32-36 [facility] Comment on above: Performed By: #### L 100.0100, L500.2500 ####[facility] [address] [place], [address] MCV (RBC) [Entitic vol] 95.4 fL High 80-94 [facility] Comment on above: Performed By: #### L 100.0100, L500.2500 ####[facility] [address] [place], [address] Monocytes/100 WBC (Bld) 2.5 % Normal 0-10 [facility] Comment on above: Performed By: #### L 100.0100, L500.2500 ####[facility] [address] [place], [address] Neutrophils/100 WBC (Bld) 90.7 % High 47-70 [facility] Comment on above: Performed By: #### L 100.0100, L500.2500 ####[facility] [address] [place], [address] Nucleated RBC (Bld) [#/Vol] 0 10*3/uL Normal 0-5 [facility] Comment on above: Performed By: #### L 100.0100, L500.2500 ####[facility] [address] [place], [address] Platelet mean volume (Bld) [Entitic vol] 11.0 fL Normal 6.2-12.0 [facility] Comment on above: Performed By: #### L 100.0100, L500.2500 ####[facility] [address] [place], [address] Platelets (Bld) [#/Vol] 107 10*3/uL Low 150-450 [facility] Comment on above: Performed By: #### L 100.0100, L500.2500 ####[facility] [address] [place], [address] RBC (Bld) [#/Vol] 2.60 10*6/uL Low 4.6-6.2 [facility] Comment on above: Performed By: #### L 100.0100, L500.2500 ####[facility] [address] [place], [address] RDW SD 51.3 fl High 35.1-43.9 [facility] Comment on above: Performed By: #### L 100.0100, L500.2500 ####[facility] [address] [place], [address] WBC (Bld) [#/Vol] 10.9 10*3/uL Normal 4.4-11.0 [facility] Comment on above: Performed By: #### L 100.0100, L500.2500 ####[facility] [address] [place], [address] Chest 1 View (Portable)on Chest 1 View (Portable) Normal [facility] Consultation - Nephrologyon 11-20-2023 Consultation - Nephrology Normal [facility] Discharge Instructionon 11-10 Discharge Instruction Normal [facility] Liver Profileon 11-20-2023 Albumin [Mass/Vol] 3.3 g/dL Normal 3.2-5.0 [facility] Comment on above: Order Comment: Add-o n to morning labs if possible Performed By: #### L 500.3400 ####[facility] [address] [place], [address] ALK P 71 U/L Normal 45-117 [facility] Comment on above: Order Comment: Add-o n to morning labs if possible Performed By: #### L 500.3400 ####[facility] [address] [place], [address] ALT [Catalytic activity/Vol] 17 U/L Normal 16-61 [facility] Comment on above: Order Comment: Add-o n to morning labs if possible Performed By: #### L 500.3400 ####[facility] [address] [place], [address] AST [Catalytic activity/Vol] 9 U/L Low 15-37 [facility] Comment on above: Order Comment: Add-o n to morning labs if possible Performed By: #### L 500.3400 ####[facility] [address] [place], [address] Bilirubin [Mass/Vol] 0.40 mg/dL Normal 0.20-1.00 [facility] Comment on above: Order Comment: Add-o n to morning labs if possible Result Comment: For patients on eltrombopag therapy, use of Dimension [place] TBIL is not recommended. Performed By: #### L 500.3400 ####[facility] [address] [place], [address] Bilirubin.direct [Mass/Vol] 0.10 mg/dL Normal 0.00-0.30 [facility] Comment on above: Order Comment: Add-o n to morning labs if possible Performed By: #### L 500.3400 ####[facility] [address] [place], [address] Globulin (S) [Mass/Vol] 3.0 g/dL Normal 2.2-4.2 [facility] Comment on above: Order Comment: Add-o n to morning labs if possible Performed By: #### L 500.3400 ####[facility] [address] [place], [address] T PROT 6.3 g/dL Low 6.4-8.2 [facility] Comment on above: Order Comment: Add-o n to morning labs if possible Performed By: #### L 500.3400 ####[facility] [address] [place], [address] Protein+Creatinine Ratio,Uri neon 11-20-2023 PROT:CRE RATIO 683 mg/g CRE High 0-200 [facility] Comment on above: Performed By: #### L 501.0900 ####[facility] [address] [place], [address] Protein (U) [Mass/Vol] 35.3 mg/dL High <11.9 [facility] Comment on above: Performed By: #### L 501.0900 ####[facility] [address] [place], [address] UR CREAT 51.70 mg/dL Normal NO RANGE EST. [facility] Comment on above: Performed By: #### L 501.0900 ####[facility] [address] [place], [address] Venous Blood Gason 4 Blood Gas Type DAYANA Normal [facility] Comment on above: Performed By: #### L 9000.0810 ####[facility] [address] [place], [address] CO2 [Moles/Vol] 24 mmol/L Normal 23-33 [facility] Comment on above: Performed By: #### L 9000.0810 ####[facility] [address] [place], [address] FI02 3.0 Normal [facility] Comment on above: Performed By: #### L 9000.0810 ####[facility] [address] [place], [address] HCO3 (Bld) [Moles/Vol] 23 mmol/L Normal 22-26 [facility] Comment on above: Performed By: #### L 9000.0810 ####[facility] [address] [place], [address] O2 Delivery Dev Cannula Normal [facility] Comment on above: Performed By: #### L 9000.0810 ####[facility] [address] [place], [address] SITE Not entered Normal [facility] Comment on above: Performed By: #### L 9000.0810 ####[facility] [address] [place], [address] VBG BE -3 mmol/L Low -1.0-3.5 [facility] Comment on above: Performed By: #### L 9000.0810 ####[facility] [address] [place], [address] VBG pCO2 42.2 mmHg Normal 41-51 [facility] Comment on above: Performed By: #### L 9000.0810 ####[facility] [address] [place], [address] VBG pH 7.34 Normal 7.32-7.42 [facility] Comment on above: Performed By: #### L 9000.0810 ####[facility] [address] [place], [address] VBG PO2 55 mmHg High 25-40 [facility] Comment on above: Performed By: #### L 9000.0810 ####[facility] [address] [place], [address] VBG SO2 86 High 50-70 [facility] Comment on above: Performed By: #### L 9000.0810 ####[facility] [address] [place], [address] Basic Metabolic Profile (BMP )on 11-19-2023 BUN/CRE 42.7 RATIO High 10-20 [facility] Comment on above: Performed By: #### L 500.2500, L100.0100 ####[facility] [address] [place], [address] CA,Total 9.2 mg/dL Normal 8.5-10.1 [facility] Comment on above: Performed By: #### L 500.2500, L100.0100 ####[facility] [address] [place], [address] Chloride [Moles/Vol] 105 mmol/L Normal 98-107 [facility] Comment on above: Performed By: #### L 500.2500, L100.0100 ####[facility] [address] [place], [address] CO2 [Moles/Vol] 26.0 mmol/L Normal 21.0-32.0 [facility] Comment on above: Performed By: #### L 500.2500, L100.0100 ####[facility] [address] [place], [address] Creatinine [Mass/Vol] 2.13 mg/dL High 0.70-1.30 [facility] Comment on above: Result Comment: The validity of the calculated GFR GFRAA in patients over70 years has not been determined. Clinical correlation isessential. Performed By: #### L 500.2500, L100.0100 ####[facility] [address] [place], [address] ECRCL 26.08 ml/min Normal [facility] Comment on above: Performed By: #### L 500.2500, L100.0100 ####[facility] [address] [place], [address] EST GFR - AA 38 mL/min Low >60 [facility] Comment on above: Result Comment: Afri can [place]adian GFR Calc Performed By: #### L 500.2500, L100.0100 ####[facility] [address] [place], [address] GAP 11 Normal 5-15 [facility] Comment on above: Performed By: #### L 500.2500, L100.0100 ####[facility] [address] [place], [address] GFR/1.73 sq M.predicted among non-blacks MDRD (S/P/Bld) [Vol rate/Area] 32 mL/min/{1.73_m2} Low >60 [facility] Comment on above: Result Comment: Non- GFR Calc Performed By: #### L 500.2500, L100.0100 ####[facility] [address] [place], [address] Glucose [Mass/Vol] 200 mg/dL High 74-106 [facility] Comment on above: Result Comment: Gluc ose result greater than or equal to 200 mg/dLsuggests DIABETES MELLITUS per A.D.A. criteria. Performed By: #### L 500.2500, L100.0100 ####[facility] [address] [place], [address] Potassium [Moles/Vol] 4.4 mmol/L Normal 3.5-5.1 [facility] Comment on above: Performed By: #### L 500.2500, L100.0100 ####[facility] [address] [place], [address] Sodium [Moles/Vol] 142 mmol/L Normal 136-145 [facility] Comment on above: Performed By: #### L 500.2500, L100.0100 ####[facility] [address] [place], [address] Urea nitrogen [Mass/Vol] 91 mg/dL High 7-18 [facility] Comment on above: Performed By: #### L 500.2500, L100.0100 ####[facility] [address] [place], [address] Bedside Glucoseon 11-19-2023 FINGERSTICK GLU 262 mg/dL High 74-106 [facility] Comment on above: Result Comment: MYKE GEMENT OF PATIENT CARE PER NURSING PROTOCOL Performed By: #### L 501.080 ####[facility] [address] [place], [address] FINGERSTICK GLU 142 mg/dL High 74-106 [facility] Comment on above: Result Comment: MYKE GEMENT OF PATIENT CARE PER NURSING PROTOCOL Performed By: #### L 501.080 ####[facility] [address] [place], [address] FINGERSTICK GLU 284 mg/dL High 74-106 [facility] Comment on above: Result Comment: MYKE GEMENT OF PATIENT CARE PER NURSING PROTOCOL Performed By: #### L 501.080 ####[facility] [address] [place], [address] FINGERSTICK GLU 201 mg/dL High 74-106 [facility] Comment on above: Result Comment: MYKE GEMENT OF PATIENT CARE PER NURSING PROTOCOL Performed By: #### L 501.080 ####[facility] [address] [place], [address] FINGERSTICK GLU 289 mg/dL High 74-106 [facility] Comment on above: Result Comment: MYKE GEMENT OF PATIENT CARE PER NURSING PROTOCOL Performed By: #### L 501.080 ####[facility] [address] [place], [address] CBC W/Diff, Automatedon 09-0 PLT EST SLT DEC Normal ADEQ [facility] Comment on above: Performed By: #### L 500.2500, L100.0100 ####[facility] [address] [place], [address] 12 Lead EKGon 11-18-2023 12 Lead EKG Normal [facility] BNP,B-Type NATRIURETIC PEPTI Nico 11-18-2023 Natriuretic peptide B (Bld) [Mass/Vol] 107.6 pg/mL High 0-100 [facility] Comment on above: Performed By: #### L 503.6620 ####[facility] [address] [place], [address] Basic Metabolic Profile (BMP )on 11-18-2023 BUN/CRE 36.3 RATIO High 10-20 [facility] Comment on above: Performed By: #### L 500.2500, L100.0100 ####[facility] [address] [place], [address] CA,Total 8.7 mg/dL Normal 8.5-10.1 [facility] Comment on above: Performed By: #### L 500.2500, L100.0100 ####[facility] [address] [place], [address] Chloride [Moles/Vol] 110 mmol/L High 98-107 [facility] Comment on above: Performed By: #### L 500.2500, L100.0100 ####[facility] [address] [place], [address] CO2 [Moles/Vol] 28.0 mmol/L Normal 21.0-32.0 [facility] Comment on above: Performed By: #### L 500.2500, L100.0100 ####[facility] [address] [place], [address] Creatinine [Mass/Vol] 2.56 mg/dL High 0.70-1.30 [facility] Comment on above: Result Comment: The validity of the calculated GFR GFRAA in patients over70 years has not been determined. Clinical correlation isessential. Performed By: #### L 500.2500, L100.0100 ####[facility] [address] [place], [address] ECRCL 21.65 ml/min Normal [facility] Comment on above: Performed By: #### L 500.2500, L100.0100 ####[facility] [address] [place], [address] EST GFR - AA 31 mL/min Low >60 [facility] Comment on above: Result Comment: Afri can [place] GFR Calc Performed By: #### L 500.2500, L100.0100 ####[facility] [address] [place], [address] GAP 6 Normal 5-15 [facility] Comment on above: Performed By: #### L 500.2500, L100.0100 ####[facility] [address] [place], [address] GFR/1.73 sq M.predicted among non-blacks MDRD (S/P/Bld) [Vol rate/Area] 26 mL/min/{1.73_m2} Low >60 [facility] Comment on above: Result Comment: Non- GFR Calc Performed By: #### L 500.2500, L100.0100 ####[facility] [address] [place], [address] Glucose [Mass/Vol] 188 mg/dL High 74-106 [facility] Comment on above: Result Comment: Fast ing Glucose result greater than or equal to 126 mg/dLsuggests DIABETES MELLITUS per A.D.A. criteria. Performed By: #### L 500.2500, L100.0100 ####[facility] [address] [place], [address] Potassium [Moles/Vol] 4.5 mmol/L Normal 3.5-5.1 [facility] Comment on above: Performed By: #### L 500.2500, L100.0100 ####[facility] [address] [place], [address] Sodium [Moles/Vol] 144 mmol/L Normal 136-145 [facility] Comment on above: Performed By: #### L 500.2500, L100.0100 ####[facility] [address] [place], [address] Urea nitrogen [Mass/Vol] 93 mg/dL High 7-18 [facility] Comment on above: Performed By: #### L 500.2500, L100.0100 ####[facility] [address] [place], [address] Bedside Glucoseon 11-18-2023 FINGERSTICK GLU 119 mg/dL High 74-106 [facility] Comment on above: Result Comment: MYKE SAGE OF PATIENT CARE PER NURSING PROTOCOL Performed By: #### L 501.080 ####[facility] [address] [place], [address] CBC W/Diff, Automatedon Absolute Lymph 0.99 X10 3/uL Normal 0.83-4.51 [facility] Comment on above: Performed By: #### L 500.2500, L100.0100 ####[facility] [address] [place], [address] Absolute Neut 5.3 X10 3/uL Normal 2.0-7.7 [facility] Comment on above: Performed By: #### L 500.2500, L100.0100 ####[facility] [address] [place], [address] Basophils/100 WBC (Bld) 0.6 % Normal 0-1 [facility] Comment on above: Performed By: #### L 500.2500, L100.0100 ####[facility] [address] [place], [address] Eosinophils/100 WBC (Bld) 4.3 % Normal 0-5 [facility] Comment on above: Performed By: #### L 500.2500, L100.0100 ####[facility] [address] [place], [address] Erythrocyte distribution width (RBC) [Ratio] 14.3 % Normal 11.6-14.6 [facility] Comment on above: Performed By: #### L 500.2500, L100.0100 ####[facility] [address] [place], [address] Hematocrit (Bld) [Volume fraction] 27.2 % Low 40-54 [facility] Comment on above: Performed By: #### L 500.2500, L100.0100 ####[facility] [address] [place], [address] Hemoglobin (Bld) [Mass/Vol] 8.5 g/dL Low 13.0-16.5 [facility] Comment on above: Performed By: #### L 500.2500, L100.0100 ####[facility] [address] [place], [address] IG% 0.400 Normal 0.0-0.9 [facility] Comment on above: Result Comment: IG% - Immature Granulocytes (promyelocytes, myelocytes andmetamyelocytes) > 1% indicates that a LEFT SHIFT is Present. Performed By: #### L 500.2500, L100.0100 ####[facility] [address] [place], [address] Lymphocytes/100 WBC (Bld) 14.1 % Low 19-41 [facility] Comment on above: Performed By: #### L 500.2500, L100.0100 ####[facility] [address] [place], [address] MCH (RBC) [Entitic mass] 30.5 pg Normal 27.0-32.0 [facility] Comment on above: Performed By: #### L 500.2500, L100.0100 ####[facility] [address] [place], [address] MCHC (RBC) [Mass/Vol] 31.3 g/dL Low 32-36 [facility] Comment on above: Performed By: #### L 500.2500, L100.0100 ####[facility] [address] [place], [address] MCV (RBC) [Entitic vol] 97.5 fL High 80-94 [facility] Comment on above: Performed By: #### L 500.2500, L100.0100 ####[facility] [address] [place], [address] Monocytes/100 WBC (Bld) 6.0 % Normal 0-10 [facility] Comment on above: Performed By: #### L 500.2500, L100.0100 ####[facility] [address] [place], [address] Neutrophils/100 WBC (Bld) 74.6 % High 47-70 [facility] Comment on above: Performed By: #### L 500.2500, L100.0100 ####[facility] [address] [place], [address] Nucleated RBC (Bld) [#/Vol] 0 10*3/uL Normal 0-5 [facility] Comment on above: Performed By: #### L 500.2500, L100.0100 ####[facility] [address], [address] Platelet mean volume (Bld) [Entitic vol] 11.2 fL Normal 6.2-12.0 [facility] Comment on above: Performed By: #### L 500.2500, L100.0100 ####[facility] [address] [place], [address] Platelets (Bld) [#/Vol] 116 10*3/uL Low 150-450 [facility] Comment on above: Performed By: #### L 500.2500, L100.0100 ####[facility] [address] [place], [address] RBC (Bld) [#/Vol] 2.79 10*6/uL Low 4.6-6.2 [facility] Comment on above: Performed By: #### L 500.2500, L100.0100 ####[facility] [address] [place], [address] RDW SD 51.0 fl High 35.1-43.9 [facility] Comment on above: Performed By: #### L 500.2500, L100.0100 ####[facility] [address] [place], [address] WBC (Bld) [#/Vol] 7.0 10*3/uL Normal 4.4-11.0 [facility] Comment on above: Performed By: #### L 500.2500, L100.0100 ####[facility] [address] [place], [address] Chest 1 View (Portable)on Chest 1 View (Portable) Normal [facility] D-Dimer Quantitative (DVT/PE )on 11-18-2023 D-DIMER QUANT 0.83 FEU/ug/m Invalid Interpretation Code 0.27-0.49 [facility] Comment on above: Result Comment: D-Di kassidy ELEVATED (>0.49): Additional studies and clinicalassessments are indicated to conclude diagnosis of:Deep Vein Thrombosis (DVT) or Pulmonary Embolism (PE)CRITICAL VALUE VERIFIED. CALLED TO ANGELICA OSEI11/18/23 1448 Nelly Huynh.RESULTS READ BACK BY SAME. Performed By: #### L 300.8000 ####[facility] [address] [place], [address] Emergency Department Summary on 11-18-2023 Emergency Department Summary Normal [facility] H AND P Exam - Hospitaliston 11-18-2023 H&P Exam - Hospitalist Normal [facility] L501.4020on 11-18-2023 TROPONIN-I HS 35 pg/mL Normal 3.0-78.0 [facility] Comment on above: Result Comment: Sara saleh Note: New Test Units and Gender Specific Reference Ranges. For more information see Policy Stat Procedure [place] High Sensitivity Troponin (TNIH) and attachments. Performed By: #### L 501.4020 ####[facility] [address] [place], [address] L501.5425on 11-18-2023 TROPONIN-I HS 32 pg/mL Normal 3.0-78.0 [facility] Comment on above: Order Comment: 1Y Result Comment: Sara saleh Note: New Test Units and Gender Specific Reference Ranges. For more information see Policy Stat Procedure [place] High Sensitivity Troponin (TNIH) and attachments. Performed By: #### L 501.5425 ####[facility] [address] [place], [address] M100.678on 11-18-2023 M100.678 Pending SARS-CoV-2 (COVID 19) Negative INFLUENZA A Negative INFLUENZA B Negative RSV PCR Negative Normal [facility] Comment on above: Performed By: #### M 100.678 ####[facility] [address] [place], [address] RESPIRATORY PANEL MOLECULARo n 11-18-2023 RP PANEL Normal [facility] Comment on above: Performed By: #### M 100.638 ####[facility] [address] [place], [address] Venous Blood Gason 4 Blood Gas Type DAYANA Normal [facility] Comment on above: Performed By: #### L 9000.0810 ####[facility] [address] [place], [address] CO2 [Moles/Vol] 33 mmol/L Normal 23-33 [facility] Comment on above: Performed By: #### L 9000.0810 ####[facility] [address] [place], [address] FI02 4.0 Normal [facility] Comment on above: Performed By: #### L 9000.0810 ####[facility] [address] [place], [address] HCO3 (Bld) [Moles/Vol] 31 mmol/L High 22-26 [facility] Comment on above: Performed By: #### L 9000.0810 ####[facility] [address] [place], [address] O2 Delivery Dev Cannula Normal [facility] Comment on above: Performed By: #### L 9000.0810 ####[facility] [address] [place], [address] SITE Not entered Normal [facility] Comment on above: Performed By: #### L 9000.0810 ####[facility] [address] [place], [address] VBG BE 5 mmol/L High -1.0-3.5 [facility] Comment on above: Performed By: #### L 9000.0810 ####[facility] [address] [place], [address] VBG pCO2 61.5 mmHg High 41-51 [facility] Comment on above: Performed By: #### L 9000.0810 ####[facility] [address] [place], [address] VBG pH 7.31 Low 7.32-7.42 [facility] Comment on above: Performed By: #### L 9000.0810 ####[facility] [address] [place], [address] VBG PO2 50 mmHg High 25-40 [facility] Comment on above: Performed By: #### L 9000.0810 ####[facility] [address] [place], [address] VBG SO2 80 High 50-70 [facility] Comment on above: Performed By: #### L 9000.0810 ####[facility] [address] [place], [address] Basic Metabolic Profile (BMP )on 11-16-2023 BUN/CRE 30.4 RATIO High 10-20 [facility] Comment on above: Performed By: #### L 501.5200, L501.2300, L500.2500, L100.0500 ####[facility] [address] [place], [address] CA,Total 9.4 mg/dL Normal 8.5-10.1 [facility] Comment on above: Performed By: #### L 501.5200, L501.2300, L500.2500, L100.0500 ####[facility] [address] [place], [address] Chloride [Moles/Vol] 106 mmol/L Normal 98-107 [facility] Comment on above: Performed By: #### L 501.5200, L501.2300, L500.2500, L100.0500 ####[facility] [address] [place], [address] CO2 [Moles/Vol] 28.0 mmol/L Normal 21.0-32.0 [facility] Comment on above: Performed By: #### L 501.5200, L501.2300, L500.2500, L100.0500 ####[facility] [address] [place], [address] Creatinine [Mass/Vol] 2.14 mg/dL High 0.70-1.30 [facility] Comment on above: Result Comment: The validity of the calculated GFR GFRAA in patients over70 years has not been determined. Clinical correlation isessential. Performed By: #### L 501.5200, L501.2300, L500.2500, L100.0500 ####[facility] [address] [place], [address] ECRCL 26.04 ml/min Normal [facility] Comment on above: Performed By: #### L 501.5200, L501.2300, L500.2500, L100.0500 ####[facility] [address] [place], [address] EST GFR - AA 38 mL/min Low >60 [facility] Comment on above: Result Comment: Afri can [place] GFR Calc Performed By: #### L 501.5200, L501.2300, L500.2500, L100.0500 ####[facility] [address] [place], [address] GAP 7 Normal 5-15 [facility] Comment on above: Performed By: #### L 501.5200, L501.2300, L500.2500, L100.0500 ####[facility] [address] [place], [address] GFR/1.73 sq M.predicted among non-blacks MDRD (S/P/Bld) [Vol rate/Area] 31 mL/min/{1.73_m2} Low >60 [facility] Comment on above: Result Comment: Non- GFR Calc Performed By: #### L 501.5200, L501.2300, L500.2500, L100.0500 ####[facility] [address] [place], [address] Glucose [Mass/Vol] 122 mg/dL High 74-106 [facility] Comment on above: Result Comment: Fast ing Glucose result from 100 to 125 mg/dLsuggests IMPAIRED HOMEOSTASIS per A.D.A. criteria. Performed By: #### L 501.5200, L501.2300, L500.2500, L100.0500 ####[facility] [address] [place], [address] Potassium [Moles/Vol] 4.3 mmol/L Normal 3.5-5.1 [facility] Comment on above: Performed By: #### L 501.5200, L501.2300, L500.2500, L100.0500 ####[facility] [address] [place], [address] Sodium [Moles/Vol] 141 mmol/L Normal 136-145 [facility] Comment on above: Performed By: #### L 501.5200, L501.2300, L500.2500, L100.0500 ####[facility] [address] [place], [address] Urea nitrogen [Mass/Vol] 65 mg/dL High 7-18 [facility] Comment on above: Performed By: #### L 501.5200, L501.2300, L500.2500, L100.0500 ####[facility] [address] [place], [address] Bedside Glucoseon 11-16-2023 FINGERSTICK GLU 176 mg/dL High 74-106 [facility] Comment on above: Result Comment: MYKE GEMENT OF PATIENT CARE PER NURSING PROTOCOL Performed By: #### L 501.080 ####[facility] [address] [place], [address] FINGERSTICK GLU 158 mg/dL High 74-106 [facility] Comment on above: Result Comment: MYKE GEMENT OF PATIENT CARE PER NURSING PROTOCOL Performed By: #### L 501.080 ####[facility] [address] [place], [address] FINGERSTICK GLU 115 mg/dL High 74-106 [facility] Comment on above: Result Comment: MYKE GEMENT OF PATIENT CARE PER NURSING PROTOCOL Performed By: #### L 501.080 ####[facility] [address] [place], [address] FINGERSTICK GLU 151 mg/dL High 74-106 [facility] Comment on above: Result Comment: MYKE GEMENT OF PATIENT CARE PER NURSING PROTOCOL Performed By: #### L 501.080 ####[facility] [address] [place], [address] CBC-Complete Blood Cnt No Di ffon 11-16-2023 Erythrocyte distribution width (RBC) [Ratio] 14.2 % Normal 11.6-14.6 [facility] Comment on above: Performed By: #### L 501.5200, L501.2300, L500.2500, L100.0500 ####[facility] [address] [place], [address] Hematocrit (Bld) [Volume fraction] 28.1 % Low 40-54 [facility] Comment on above: Performed By: #### L 501.5200, L501.2300, L500.2500, L100.0500 ####[facility] [address] [place], [address] Hemoglobin (Bld) [Mass/Vol] 8.8 g/dL Low 13.0-16.5 [facility] Comment on above: Performed By: #### L 501.5200, L501.2300, L500.2500, L100.0500 ####[facility] [address] [place], [address] MCH (RBC) [Entitic mass] 29.9 pg Normal 27.0-32.0 [facility] Comment on above: Performed By: #### L 501.5200, L501.2300, L500.2500, L100.0500 ####[facility] [address] [place], [address] MCHC (RBC) [Mass/Vol] 31.3 g/dL Low 32-36 [facility] Comment on above: Performed By: #### L 501.5200, L501.2300, L500.2500, L100.0500 ####[facility] [address] [place], [address] MCV (RBC) [Entitic vol] 95.6 fL High 80-94 [facility] Comment on above: Performed By: #### L 501.5200, L501.2300, L500.2500, L100.0500 ####[facility] [address] [place], [address] Platelet mean volume (Bld) [Entitic vol] 10.8 fL Normal 6.2-12.0 [facility] Comment on above: Performed By: #### L 501.5200, L501.2300, L500.2500, L100.0500 ####[facility] [address] [place], [address] Platelets (Bld) [#/Vol] 116 10*3/uL Low 150-450 [facility] Comment on above: Performed By: #### L 501.5200, L501.2300, L500.2500, L100.0500 ####[facility] [address] [place], [address] RBC (Bld) [#/Vol] 2.94 10*6/uL Low 4.6-6.2 [facility] Comment on above: Performed By: #### L 501.5200, L501.2300, L500.2500, L100.0500 ####[facility] [address] [place], [address] RDW SD 48.8 fl High 35.1-43.9 [facility] Comment on above: Performed By: #### L 501.5200, L501.2300, L500.2500, L100.0500 ####[facility] [address] [place], [address] WBC (Bld) [#/Vol] 6.3 10*3/uL Normal 4.4-11.0 [facility] Comment on above: Performed By: #### L 501.5200, L501.2300, L500.2500, L100.0500 ####[facility] [address] [place], [address] Lipid Profileon 11-16-2023 CHOL Normal 200 [facility] Comment on above: Result Comment: Canc elled via OM: MD Ordered Performed By: #### L 500.4100 ####[facility] [address] [place], [address] HDL Normal [facility] Comment on above: Result Comment: Canc elled via OM: MD Ordered Performed By: #### L 500.4100 ####[facility] [address] [place], [address] LDL Normal 0-130 [facility] Comment on above: Result Comment: Canc elled via OM: MD Ordered Performed By: #### L 500.4100 ####[facility] [address] [place], [address] TRIG Normal [facility] Comment on above: Result Comment: Canc elled via OM: MD Ordered Performed By: #### L 500.4100 ####[facility] [address] [place], [address] VLDL Normal 5-40 [facility] Comment on above: Result Comment: Canc elled via OM: MD Ordered Performed By: #### L 500.4100 ####[facility] [address] [place], [address] Magnesiumon 11-16-2023 Magnesium [Mass/Vol] 1.8 mg/dL Normal 1.6-2.6 [facility] Comment on above: Performed By: #### L 501.5200, L501.2300, L500.2500, L100.0500 ####[facility] [address] [place], [address] Phosphoruson 11-16-2023 Phosphate [Mass/Vol] 3.2 mg/dL Normal 2.5-4.9 [facility] Comment on above: Performed By: #### L 501.5200, L501.2300, L500.2500, L100.0500 ####[facility] [address] [place], [address] 12 Lead EKGon 11-15-2023 12 Lead EKG Normal [facility] Bedside Glucoseon 11-15-2023 FINGERSTICK GLU 151 mg/dL High 74-106 [facility] Comment on above: Result Comment: MYKE GEMENT OF PATIENT CARE PER NURSING PROTOCOL Performed By: #### L 501.080 ####[facility] [address] [place], [address] FINGERSTICK GLU 164 mg/dL High -106 [facility] Comment on above: Result Comment: MYKE GEMENT OF PATIENT CARE PER NURSING PROTOCOL Performed By: #### L 501.080 ####[facility] [address] [place], [address] FINGERSTICK GLU 113 mg/dL High -106 [facility] Comment on above: Result Comment: MYKE GEMENT OF PATIENT CARE PER NURSING PROTOCOL Performed By: #### L 501.080 ####[facility] [address] [place], [address] FINGERSTICK GLU 173 mg/dL High -106 [facility] Comment on above: Result Comment: MYKE GEMENT OF PATIENT CARE PER NURSING PROTOCOL Performed By: #### L 501.080 ####[facility] [address] [place], [address] CBC W/Diff, Automatedon 0 Absolute Lymph 0.90 X10 3/uL Normal 0.83-4.51 [facility] Comment on above: Performed By: #### L 100.0100, L501.9985, L501.9520, L500.4100, L500.4050 ####[facility] [address] [place], [address] Absolute Neut 5.2 X10 3/uL Normal 2.0-7.7 [facility] Comment on above: Performed By: #### L 100.0100, L501.9985, L501.9520, L500.4100, L500.4050 ####[facility] [address] [place], [address] Basophils/100 WBC (Bld) 0.4 % Normal 0-1 [facility] Comment on above: Performed By: #### L 100.0100, L501.9985, L501.9520, L500.4100, L500.4050 ####[facility] [address] [place], [address] Eosinophils/100 WBC (Bld) 3.2 % Normal 0-5 [facility] Comment on above: Performed By: #### L 100.0100, L501.9985, L501.9520, L500.4100, L500.4050 ####[facility] [address] [place], [address] Erythrocyte distribution width (RBC) [Ratio] 14.0 % Normal 11.6-14.6 [facility] Comment on above: Performed By: #### L 100.0100, L501.9985, L501.9520, L500.4100, L500.4050 ####[facility] [address] [place], [address] Hematocrit (Bld) [Volume fraction] 27.7 % Low 40-54 [facility] Comment on above: Performed By: #### L 100.0100, L501.9985, L501.9520, L500.4100, L500.4050 ####[facility] [address] [place], [address] Hemoglobin (Bld) [Mass/Vol] 8.8 g/dL Low 13.0-16.5 [facility] Comment on above: Performed By: #### L 100.0100, L501.9985, L501.9520, L500.4100, L500.4050 ####[facility] [address] [place], [address] IG% 0.300 Normal 0.0-0.9 [facility] Comment on above: Result Comment: IG% - Immature Granulocytes (promyelocytes, myelocytes andmetamyelocytes) > 1% indicates that a LEFT SHIFT is Present. Performed By: #### L 100.0100, L501.9985, L501.9520, L500.4100, L500.4050 ####[facility] [address] [place], [address] Lymphocytes/100 WBC (Bld) 13.2 % Low 19-41 [facility] Comment on above: Performed By: #### L 100.0100, L501.9985, L501.9520, L500.4100, L500.4050 ####[facility] [address] [place], [address] MCH (RBC) [Entitic mass] 30.7 pg Normal 27.0-32.0 [facility] Comment on above: Performed By: #### L 100.0100, L501.9985, L501.9520, L500.4100, L500.4050 ####[facility] [address] [place], [address] MCHC (RBC) [Mass/Vol] 31.8 g/dL Low 32-36 [facility] Comment on above: Performed By: #### L 100.0100, L501.9985, L501.9520, L500.4100, L500.4050 ####[facility] [address] [place], [address] MCV (RBC) [Entitic vol] 96.5 fL High 80-94 [facility] Comment on above: Performed By: #### L 100.0100, L501.9985, L501.9520, L500.4100, L500.4050 ####[facility] [address] [place], [address] Monocytes/100 WBC (Bld) 6.0 % Normal 0-10 [facility] Comment on above: Performed By: #### L 100.0100, L501.9985, L501.9520, L500.4100, L500.4050 ####[facility] [address] [place], [address] Neutrophils/100 WBC (Bld) 76.9 % High 47-70 [facility] Comment on above: Performed By: #### L 100.0100, L501.9985, L501.9520, L500.4100, L500.4050 ####[facility] [address] [place], [address] Nucleated RBC (Bld) [#/Vol] 0 10*3/uL Normal 0-5 [facility] Comment on above: Performed By: #### L 100.0100, L501.9985, L501.9520, L500.4100, L500.4050 ####[facility] [address] [place], [address] Platelet mean volume (Bld) [Entitic vol] 10.3 fL Normal 6.2-12.0 [facility] Comment on above: Performed By: #### L 100.0100, L501.9985, L501.9520, L500.4100, L500.4050 ####[facility] [address] [place], [address] Platelets (Bld) [#/Vol] 106 10*3/uL Low 150-450 [facility] Comment on above: Performed By: #### L 100.0100, L501.9985, L501.9520, L500.4100, L500.4050 ####[facility] [address] [place], [address] RBC (Bld) [#/Vol] 2.87 10*6/uL Low 4.6-6.2 [facility] Comment on above: Performed By: #### L 100.0100, L501.9985, L501.9520, L500.4100, L500.4050 ####[facility] [address] [place], [address] RDW SD 48.1 fl High 35.1-43.9 [facility] Comment on above: Performed By: #### L 100.0100, L501.9985, L501.9520, L500.4100, L500.4050 ####[facility] [address] [place], [address] WBC (Bld) [#/Vol] 6.8 10*3/uL Normal 4.4-11.0 [facility] Comment on above: Performed By: #### L 100.0100, L501.9985, L501.9520, L500.4100, L500.4050 ####[facility] [address] [place], [address] Chest 1 View (Portable)on Chest 1 View (Portable) Normal [facility] Comprehensive Metabolic Prof ilon 11-15-2023 Albumin [Mass/Vol] 3.2 g/dL Normal 3.2-5.0 [facility] Comment on above: Performed By: #### L 100.0100, L501.9985, L501.9520, L500.4100, L500.4050 ####[facility] [address] [place], [address] Albumin/Globulin [Mass ratio] 0.9 {ratio} Normal 0.9-2.4 [facility] Comment on above: Performed By: #### L 100.0100, L501.9985, L501.9520, L500.4100, L500.4050 ####[facility] [address] [place], [address] ALK P 79 U/L Normal 45-117 [facility] Comment on above: Performed By: #### L 100.0100, L501.9985, L501.9520, L500.4100, L500.4050 ####[facility] [address] [place], [address] ALT [Catalytic activity/Vol] 14 U/L Low 16-61 [facility] Comment on above: Performed By: #### L 100.0100, L501.9985, L501.9520, L500.4100, L500.4050 ####[facility] [address] [place], [address] AST [Catalytic activity/Vol] 10 U/L Low 15-37 [facility] Comment on above: Performed By: #### L 100.0100, L501.9985, L501.9520, L500.4100, L500.4050 ####[facility] [address] [place], [address] Bilirubin [Mass/Vol] 0.50 mg/dL Normal 0.20-1.00 [facility] Comment on above: Result Comment: For patients on eltrombopag therapy, use of Dimension [place] TBIL is not recommended. Performed By: #### L 100.0100, L501.9985, L501.9520, L500.4100, L500.4050 ####[facility] [address] [place], [address] BUN/CRE 26.5 RATIO High 10-20 [facility] Comment on above: Performed By: #### L 100.0100, L501.9985, L501.9520, L500.4100, L500.4050 ####[facility] [address] [place], [address] CA,Total 8.9 mg/dL Normal 8.5-10.1 [facility] Comment on above: Performed By: #### L 100.0100, L501.9985, L501.9520, L500.4100, L500.4050 ####[facility] [address] [place], [address] Chloride [Moles/Vol] 109 mmol/L High 98-107 [facility] Comment on above: Performed By: #### L 100.0100, L501.9985, L501.9520, L500.4100, L500.4050 ####[facility] [address] [place], [address] CO2 [Moles/Vol] 30.0 mmol/L Normal 21.0-32.0 [facility] Comment on above: Performed By: #### L 100.0100, L501.9985, L501.9520, L500.4100, L500.4050 ####[facility] [address] [place], [address] Creatinine [Mass/Vol] 2.26 mg/dL High 0.70-1.30 [facility] Comment on above: Result Comment: The validity of the calculated GFR GFRAA in patients over70 years has not been determined. Clinical correlation isessential. Performed By: #### L 100.0100, L501.9985, L501.9520, L500.4100, L500.4050 ####[facility] [address] [place], [address] ECRCL 24.77 ml/min Normal [facility] Comment on above: Performed By: #### L 100.0100, L501.9985, L501.9520, L500.4100, L500.4050 ####[facility] [address] [place], [address] EST GFR - AA 36 mL/min Low >60 [facility] Comment on above: Result Comment: Afri can [place] GFR Calc Performed By: #### L 100.0100, L501.9985, L501.9520, L500.4100, L500.4050 ####[facility] [address] [place], [address] GAP 4 Low 5-15 [facility] Comment on above: Performed By: #### L 100.0100, L501.9985, L501.9520, L500.4100, L500.4050 ####[facility] [address] [place], [address] GFR/1.73 sq M.predicted among non-blacks MDRD (S/P/Bld) [Vol rate/Area] 30 mL/min/{1.73_m2} Low >60 [facility] Comment on above: Result Comment: Non- GFR Calc Performed By: #### L 100.0100, L501.9985, L501.9520, L500.4100, L500.4050 ####[facility] [address] [place], [address] Globulin (S) [Mass/Vol] 3.6 g/dL Normal 2.2-4.2 [facility] Comment on above: Performed By: #### L 100.0100, L501.9985, L501.9520, L500.4100, L500.4050 ####[facility] [address] [place], [address] Glucose [Mass/Vol] 174 mg/dL High 74-106 [facility] Comment on above: Result Comment: Fast ing Glucose result greater than or equal to 126 mg/dLsuggests DIABETES MELLITUS per A.D.A. criteria. Performed By: #### L 100.0100, L501.9985, L501.9520, L500.4100, L500.4050 ####[facility] [address] [place], [address] Potassium [Moles/Vol] 4.6 mmol/L Normal 3.5-5.1 [facility] Comment on above: Performed By: #### L 100.0100, L501.9985, L501.9520, L500.4100, L500.4050 ####[facility] [address] [place], [address] Sodium [Moles/Vol] 143 mmol/L Normal 136-145 [facility] Comment on above: Performed By: #### L 100.0100, L501.9985, L501.9520, L500.4100, L500.4050 ####[facility] [address] [place], [address] T PROT 6.8 g/dL Normal 6.4-8.2 [facility] Comment on above: Performed By: #### L 100.0100, L501.9985, L501.9520, L500.4100, L500.4050 ####[facility] [address] [place], [address] Urea nitrogen [Mass/Vol] 60 mg/dL High 7-18 [facility] Comment on above: Performed By: #### L 100.0100, L501.9985, L501.9520, L500.4100, L500.4050 ####[facility] [address] [place], [address] Echo Complete W/ Contraston 11-15-2023 Echo Complete W/ Contrast Normal [facility] Hemoglobin A1con 11-15-2023 HbA1c (Bld) [Mass fraction] 5.7 % High 3.8-5.6 [facility] Comment on above: Result Comment: Norm al < 5.7 % Prediabetic 5.7 - 6.4 % Diabetic >or= 6.5 % Please note range changes. Performed By: #### L 100.0100, L501.9985, L501.9520, L500.4100, L500.4050 ####[facility] [address] [place], [address] L501.4020on 11-15-2023 TROPONIN-I HS 150 pg/mL Invalid Interpretation Code 3.0-78.0 [facility] Comment on above: Order Comment: 'TROP ' Serial specimen #1, #2 or #3: 3 Result Comment: Crit ical Result(s) Called at: 05:09:09 11/15/2023 by: Santa. VADIM AN RN PCU. Results read back by same. Please Note: New Test Units and Gender Specific Reference Ranges. For more information see Policy Stat Procedure [place] High Sensitivity Troponin (TNIH) and attachments. Performed By: #### L 501.4020 ####[facility] [address] [place], [address] TROPONIN-I HS 119 pg/mL High 3.0-78.0 [facility] Comment on above: Order Comment: 'TROP ' Serial specimen #1, #2 or #3: 2 Result Comment: Plea Note: New Test Units and Gender Specific Reference Ranges. For more information see Policy Stat Procedure [place] High Sensitivity Troponin (TNIH) and attachments. Performed By: #### L 501.4020 ####[facility] [address] [place], [address] Lipid Profileon 11-15-2023 Cholesterol [Mass/Vol] 170 mg/dL Normal 200 [facility] Comment on above: Result Comment: <200 mg/dL Desirable 200-240 mg/dL Borderline >240 mg/dL High Risk Performed By: #### L 100.0100, L501.9985, L501.9520, L500.4100, L500.4050 ####[facility] [address] [place], [address] Cholesterol in HDL [Mass/Vol] 36 mg/dL Low [facility] Comment on above: Result Comment: The drugs N-Acetylcysteine and Metamizole may falselydepress this assay. Reference Range HDL <40 mg/dL Low HDL Cholesterol HDL >or= 60 mg/dL High HDL Cholesterol Performed By: #### L 100.0100, L501.9985, L501.9520, L500.4100, L500.4050 ####[facility] [address] [place], [address] Cholesterol in LDL [Mass/Vol] 101 mg/dL Normal 0-130 [facility] Comment on above: Performed By: #### L 100.0100, L501.9985, L501.9520, L500.4100, L500.4050 ####[facility] [address] [place], [address] Cholesterol in VLDL [Mass/Vol] 33 mg/dL Normal 5-40 [facility] Comment on above: Performed By: #### L 100.0100, L501.9985, L501.9520, L500.4100, L500.4050 ####[facility] [address] [place], [address] Triglyceride [Mass/Vol] 163 mg/dL Normal [facility] Comment on above: Result Comment: The drugs N-Acetylcysteine and Metamizole may falselydepress this assay.Serum Triglycerides Reference Interval Normal <150 mg/dL Borderline high 150 - 199 mg/dL High 200 - 499 mg/dL Very High > or = 500 mg/dL Performed By: #### L 100.0100, L501.9985, L501.9520, L500.4100, L500.4050 ####[facility] [address] [place], [address] Magnesiumon 11-15-2023 Magnesium [Mass/Vol] 1.8 mg/dL Normal 1.6-2.6 [facility] Comment on above: Order Comment: Comme nts: may add to ED labs Performed By: #### L 674.2827, L501.5200 ####[facility] [address] [place], [address] Procalcitoninon 11-15-2023 Procalcitonin 0.16 ng/mL High 0.00-0.09 [facility] Comment on above: Result Comment: A pr [...] obtained. Performed By: #### L 509.7000, L501.5200 ####[facility] [address] [place], [address] Thyroid Stim Hormone (TSH)on 11-15-2023 TSH 2.800 uIU/mL Normal 0.358-3.740 [facility] Comment on above: Performed By: #### L 100.0100, L501.9985, L501.9520, L500.4100, L500.4050 ####[facility] [address] [place], [address] 12 Lead EKGon 11-14-2023 12 Lead EKG Normal [facility] BNP,B-Type NATRIURETIC PEPTI Nico 11-14-2023 Natriuretic peptide B (Bld) [Mass/Vol] 362.0 pg/mL High 0-100 [facility] Comment on above: Performed By: #### L 500.4050, L503.6620, L100.0100, L501.4020 ####[facility] [address] [place], [address] CBC W/Diff, Automatedon 09-0 4-4 Absolute Lymph 1.19 X10 3/uL Normal 0.83-4.51 [facility] Comment on above: Performed By: #### L 500.4050, L503.6620, L100.0100, L501.4020 ####[facility] [address] [place], [address] Absolute Neut 3.7 X10 3/uL Normal 2.0-7.7 [facility] Comment on above: Performed By: #### L 500.4050, L503.6620, L100.0100, L501.4020 ####[facility] [address] [place], [address] Basophils/100 WBC (Bld) 0.7 % Normal 0-1 [facility] Comment on above: Performed By: #### L 500.4050, L503.6620, L100.0100, L501.4020 ####[facility] [address] [place], [address] Eosinophils/100 WBC (Bld) 4.5 % Normal 0-5 [facility] Comment on above: Performed By: #### L 500.4050, L503.6620, L100.0100, L501.4020 ####[facility] [address] [place], [address] Erythrocyte distribution width (RBC) [Ratio] 14.0 % Normal 11.6-14.6 [facility] Comment on above: Performed By: #### L 500.4050, L503.6620, L100.0100, L501.4020 ####[facility] [address] [place], [address] Hematocrit (Bld) [Volume fraction] 26.7 % Low 40-54 [facility] Comment on above: Performed By: #### L 500.4050, L503.6620, L100.0100, L501.4020 ####[facility] [address] [place], [address] Hemoglobin (Bld) [Mass/Vol] 8.2 g/dL Low 13.0-16.5 [facility] Comment on above: Performed By: #### L 500.4050, L503.6620, L100.0100, L501.4020 ####[facility] [address] [place], [address] IG% 0.300 Normal 0.0-0.9 [facility] Comment on above: Result Comment: IG% - Immature Granulocytes (promyelocytes, myelocytes andmetamyelocytes) > 1% indicates that a LEFT SHIFT is Present. Performed By: #### L 500.4050, L503.6620, L100.0100, L501.4020 ####[facility] [address] [place], [address] Lymphocytes/100 WBC (Bld) 20.7 % Normal 19-41 [facility] Comment on above: Performed By: #### L 500.4050, L503.6620, L100.0100, L501.4020 ####[facility] [address] [place], [address] MCH (RBC) [Entitic mass] 29.4 pg Normal 27.0-32.0 [facility] Comment on above: Performed By: #### L 500.4050, L503.6620, L100.0100, L501.4020 ####[facility] [address] [place], [address] MCHC (RBC) [Mass/Vol] 30.7 g/dL Low 32-36 [facility] Comment on above: Performed By: #### L 500.4050, L503.6620, L100.0100, L501.4020 ####[facility] [address] [place], [address] MCV (RBC) [Entitic vol] 95.7 fL High 80-94 [facility] Comment on above: Performed By: #### L 500.4050, L503.6620, L100.0100, L501.4020 ####[facility] [address] [place], [address] Monocytes/100 WBC (Bld) 9.2 % Normal 0-10 [facility] Comment on above: Performed By: #### L 500.4050, L503.6620, L100.0100, L501.4020 ####[facility] [address] [place], [address] Neutrophils/100 WBC (Bld) 64.6 % Normal 47-70 [facility] Comment on above: Performed By: #### L 500.4050, L503.6620, L100.0100, L501.4020 ####[facility] [address] [place], [address] Nucleated RBC (Bld) [#/Vol] 0 10*3/uL Normal 0-5 [facility] Comment on above: Performed By: #### L 500.4050, L503.6620, L100.0100, L501.4020 ####[facility] [address] [place], [address] Platelet mean volume (Bld) [Entitic vol] 10.9 fL Normal 6.2-12.0 [facility] Comment on above: Performed By: #### L 500.4050, L503.6620, L100.0100, L501.4020 ####[facility] [address] [place], [address] Platelets (Bld) [#/Vol] 115 10*3/uL Low 150-450 [facility] Comment on above: Performed By: #### L 500.4050, L503.6620, L100.0100, L501.4020 ####[facility] [address] [place], [address] RBC (Bld) [#/Vol] 2.79 10*6/uL Low 4.6-6.2 [facility] Comment on above: Performed By: #### L 500.4050, L503.6620, L100.0100, L501.4020 ####[facility] [address] [place], [address] RDW SD 48.0 fl High 35.1-43.9 [facility] Comment on above: Performed By: #### L 500.4050, L503.6620, L100.0100, L501.4020 ####[facility] [address] [place], [address] WBC (Bld) [#/Vol] 5.7 10*3/uL Normal 4.4-11.0 [facility] Comment on above: Performed By: #### L 500.4050, L503.6620, L100.0100, L501.4020 ####[facility] [address] [place], [address] Chest 1 View (Portable)on Chest 1 View (Portable) Normal [facility] Comprehensive Metabolic Prof ilon 11-14-2023 Albumin [Mass/Vol] 3.1 g/dL Low 3.2-5.0 [facility] Comment on above: Order Comment: 'TROP ' Serial specimen #1, #2 or #3: 1 Performed By: #### L 500.4050, L503.6620, L100.0100, L501.4020 ####[facility] [address] [place], [address] Albumin/Globulin [Mass ratio] 0.9 {ratio} Normal 0.9-2.4 [facility] Comment on above: Order Comment: 'TROP ' Serial specimen #1, #2 or #3: 1 Performed By: #### L 500.4050, L503.6620, L100.0100, L501.4020 ####[facility] [id number] [place], [address] ALK P 80 U/L Normal 45-117 [facility] Comment on above: Order Comment: 'TROP ' Serial specimen #1, #2 or #3: 1 Performed By: #### L 500.4050, L503.6620, L100.0100, L501.4020 ####[facility] [id number] [place], [address] ALT [Catalytic activity/Vol] 17 U/L Normal 16-61 [facility] Comment on above: Order Comment: 'TROP ' Serial specimen #1, #2 or #3: 1 Performed By: #### L 500.4050, L503.6620, L100.0100, L501.4020 ####[facility] [id number] [place], [address] AST [Catalytic activity/Vol] 9 U/L Low 15-37 [facility] Comment on above: Order Comment: 'TROP ' Serial specimen #1, #2 or #3: 1 Performed By: #### L 500.4050, L503.6620, L100.0100, L501.4020 ####[facility] [id number] [place], [address] Bilirubin [Mass/Vol] 0.60 mg/dL Normal 0.20-1.00 [facility] Comment on above: Order Comment: 'TROP ' Serial specimen #1, #2 or #3: 1 Result Comment: For patients on eltrombopag therapy, use of Dimension [place] TBIL is not recommended. Performed By: #### L 500.4050, L503.6620, L100.0100, L501.4020 ####[facility] [address] [place], [address] BUN/CRE 24.1 RATIO High 10-20 [facility] Comment on above: Order Comment: 'TROP ' Serial specimen #1, #2 or #3: 1 Performed By: #### L 500.4050, L503.6620, L100.0100, L501.4020 ####[facility] [address] [place], [address] CA,Total 9.0 mg/dL Normal 8.5-10.1 [facility] Comment on above: Order Comment: 'TROP ' Serial specimen #1, #2 or #3: 1 Performed By: #### L 500.4050, L503.6620, L100.0100, L501.4020 ####[facility] [address] [place], [address] Chloride [Moles/Vol] 112 mmol/L High 98-107 [facility] Comment on above: Order Comment: 'TROP ' Serial specimen #1, #2 or #3: 1 Performed By: #### L 500.4050, L503.6620, L100.0100, L501.4020 ####[facility] [address] [place], [address] CO2 [Moles/Vol] 28.0 mmol/L Normal 21.0-32.0 [facility] Comment on above: Order Comment: 'TROP ' Serial specimen #1, #2 or #3: 1 Performed By: #### L 500.4050, L503.6620, L100.0100, L501.4020 ####[facility] [address] [place], [address] Creatinine [Mass/Vol] 2.41 mg/dL High 0.70-1.30 [facility] Comment on above: Order Comment: 'TROP ' Serial specimen #1, #2 or #3: 1 Result Comment: The validity of the calculated GFR GFRAA in patients over70 years has not been determined. Clinical correlation isessential. Performed By: #### L 500.4050, L503.6620, L100.0100, L501.4020 ####[facility] [address] [place], [address] EST GFR - AA 33 mL/min Low >60 [facility] Comment on above: Order Comment: 'TROP ' Serial specimen #1, #2 or #3: 1 Result Comment: Afri can [place] GFR Calc Performed By: #### L 500.4050, L503.6620, L100.0100, L501.4020 ####[facility] [address] [place], [address] GAP 5 Normal 5-15 [facility] Comment on above: Order Comment: 'TROP ' Serial specimen #1, #2 or #3: 1 Performed By: #### L 500.4050, L503.6620, L100.0100, L501.4020 ####[facility] [address] [place], [address] GFR/1.73 sq M.predicted among non-blacks MDRD (S/P/Bld) [Vol rate/Area] 27 mL/min/{1.73_m2} Low >60 [facility] Comment on above: Order Comment: 'TROP ' Serial specimen #1, #2 or #3: 1 Result Comment: Non- GFR Calc Performed By: #### L 500.4050, L503.6620, L100.0100, L501.4020 ####[facility] [address] [place], [address] Globulin (S) [Mass/Vol] 3.6 g/dL Normal 2.2-4.2 [facility] Comment on above: Order Comment: 'TROP ' Serial specimen #1, #2 or #3: 1 Performed By: #### L 500.4050, L503.6620, L100.0100, L501.4020 ####[facility] [address] [place], [address] Glucose [Mass/Vol] 87 mg/dL Normal 74-106 [facility] Comment on above: Order Comment: 'TROP ' Serial specimen #1, #2 or #3: 1 Performed By: #### L 500.4050, L503.6620, L100.0100, L501.4020 ####[facility] [address] [place], [address] Potassium [Moles/Vol] 4.8 mmol/L Normal 3.5-5.1 [facility] Comment on above: Order Comment: 'TROP ' Serial specimen #1, #2 or #3: 1 Performed By: #### L 500.4050, L503.6620, L100.0100, L501.4020 ####[facility] [address] [place], [address] Sodium [Moles/Vol] 145 mmol/L Normal 136-145 [facility] Comment on above: Order Comment: 'TROP ' Serial specimen #1, #2 or #3: 1 Performed By: #### L 500.4050, L503.6620, L100.0100, L501.4020 ####[facility] [address] [place], [address] T PROT 6.7 g/dL Normal 6.4-8.2 [facility] Comment on above: Order Comment: 'TROP ' Serial specimen #1, #2 or #3: 1 Performed By: #### L 500.4050, L503.6620, L100.0100, L501.4020 ####[facility] [address] [place], [address] Urea nitrogen [Mass/Vol] 58 mg/dL High 7-18 [facility] Comment on above: Order Comment: 'TROP ' Serial specimen #1, #2 or #3: 1 Performed By: #### L 500.4050, L503.6620, L100.0100, L501.4020 ####[facility] [address] [place], [address] Emergency Department Summary on 11-14-2023 Emergency Department Summary Normal [facility] H AND P Exam - Hospitaliston 11-14-2023 H&P Exam - Hospitalist Normal [facility] L501.4020on 11-14-2023 TROPONIN-I HS 123 pg/mL Invalid Interpretation Code 3.0-78.0 [facility] Comment on above: Order Comment: 'TROP ' Serial specimen #1, #2 or #3: 1 Result Comment: Sara saleh Note: New Test Units and Gender Specific Reference Ranges. For more information see Policy Stat Procedure [place] High Sensitivity Troponin (TNIH) and attachments. Performed By: #### L 500.4050, L503.6620, L100.0100, L501.4020 ####[facility] [address] [place], [address] CBC W/Diff, Automatedon 10-11 Absolute Lymph 1.30 X10 3/uL Normal 0.83-4.51 [facility] Comment on above: Performed By: #### L 100.0100, L500.4050, L500.4100, L501.9985 ####[facility] [address] [place], [address] Absolute Neut 4.8 X10 3/uL Normal 2.0-7.7 [facility] Comment on above: Performed By: #### L 100.0100, L500.4050, L500.4100, L501.9985 ####[facility] [address] [place], [address] Basophils/100 WBC (Bld) 0.4 % Normal 0-1 [facility] Comment on above: Performed By: #### L 100.0100, L500.4050, L500.4100, L501.9985 ####[facility] [address] [place], [address] Eosinophils/100 WBC (Bld) 4.6 % Normal 0-5 [facility] Comment on above: Performed By: #### L 100.0100, L500.4050, L500.4100, L501.9985 ####[facility] [address] [place], [address] Erythrocyte distribution width (RBC) [Ratio] 13.0 % Normal 11.6-14.6 [facility] Comment on above: Performed By: #### L 100.0100, L500.4050, L500.4100, L501.9985 ####[facility] [address] [place], [address] Hematocrit (Bld) [Volume fraction] 27.3 % Low 40-54 [facility] Comment on above: Performed By: #### L 100.0100, L500.4050, L500.4100, L501.9985 ####[facility] [address] [place], [address] Hemoglobin (Bld) [Mass/Vol] 8.5 g/dL Low 13.0-16.5 [facility] Comment on above: Performed By: #### L 100.0100, L500.4050, L500.4100, L501.9985 ####[facility] [address] [place], [address] IG% 0.600 Normal 0.0-0.9 [facility] Comment on above: Result Comment: IG% - Immature Granulocytes (promyelocytes, myelocytes andmetamyelocytes) > 1% indicates that a LEFT SHIFT is Present. Performed By: #### L 100.0100, L500.4050, L500.4100, L501.9985 ####[facility] [address] [place], [address] Lymphocytes/100 WBC (Bld) 18.7 % Low 19-41 [facility] Comment on above: Performed By: #### L 100.0100, L500.4050, L500.4100, L501.9985 ####[facility] [address] [place], [address] MCH (RBC) [Entitic mass] 29.3 pg Normal 27.0-32.0 [facility] Comment on above: Performed By: #### L 100.0100, L500.4050, L500.4100, L501.9985 ####[facility] [address] [place], [address] MCHC (RBC) [Mass/Vol] 31.1 g/dL Low 32-36 [facility] Comment on above: Performed By: #### L 100.0100, L500.4050, L500.4100, L501.9985 ####[facility] [address] [place], [address] MCV (RBC) [Entitic vol] 94.1 fL High 80-94 [facility] Comment on above: Performed By: #### L 100.0100, L500.4050, L500.4100, L501.9985 ####[facility] [address] [place], [address] Monocytes/100 WBC (Bld) 7.2 % Normal 0-10 [facility] Comment on above: Performed By: #### L 100.0100, L500.4050, L500.4100, L501.9985 ####[facility] [address] [place], [address] Neutrophils/100 WBC (Bld) 68.5 % Normal 47-70 [facility] Comment on above: Performed By: #### L 100.0100, L500.4050, L500.4100, L501.9985 ####[facility] [address] [place], [address] Nucleated RBC (Bld) [#/Vol] 0 10*3/uL Normal 0-5 [facility] Comment on above: Performed By: #### L 100.0100, L500.4050, L500.4100, L501.9985 ####[facility] [address] [place], [address] Platelet mean volume (Bld) [Entitic vol] 11.5 fL Normal 6.2-12.0 [facility] Comment on above: Performed By: #### L 100.0100, L500.4050, L500.4100, L501.9985 ####[facility] [address] [place], [address] Platelets (Bld) [#/Vol] 116 10*3/uL Low 150-450 [facility] Comment on above: Performed By: #### L 100.0100, L500.4050, L500.4100, L501.9985 ####[facility] [address] [place], [address] RBC (Bld) [#/Vol] 2.90 10*6/uL Low 4.6-6.2 [facility] Comment on above: Performed By: #### L 100.0100, L500.4050, L500.4100, L501.9985 ####[facility] [address] [place], [address] RDW SD 44.3 fl High 35.1-43.9 [facility] Comment on above: Performed By: #### L 100.0100, L500.4050, L500.4100, L501.9985 ####[facility] [address] [place], [address] WBC (Bld) [#/Vol] 7.0 10*3/uL Normal 4.4-11.0 [facility] Comment on above: Performed By: #### L 100.0100, L500.4050, L500.4100, L501.9985 ####[facility] [address] [place], [address] Comprehensive Metabolic [facility] ilon 11-07-2023 Albumin [Mass/Vol] 3.1 g/dL Low 3.2-5.0 [facility] Comment on above: Performed By: #### L 100.0100, L500.4050, L500.4100, L501.9985 ####[facility] [address] [place], [address] Albumin/Globulin [Mass ratio] 0.9 {ratio} Normal 0.9-2.4 [facility] Comment on above: Performed By: #### L 100.0100, L500.4050, L500.4100, L501.9985 ####[facility] [address] [place], [address] ALK P 70 U/L Normal 45-117 [facility] Comment on above: Performed By: #### L 100.0100, L500.4050, L500.4100, L501.9985 ####[facility] [address] [place], [address] ALT [Catalytic activity/Vol] 10 U/L Low 16-61 [facility] Comment on above: Performed By: #### L 100.0100, L500.4050, L500.4100, L501.9985 ####[facility] [address] [place], [address] AST [Catalytic activity/Vol] 15 U/L Normal 15-37 [facility] Comment on above: Performed By: #### L 100.0100, L500.4050, L500.4100, L501.9985 ####[facility] [address] [place], [address] Bilirubin [Mass/Vol] 0.40 mg/dL Normal 0.20-1.00 [facility] Comment on above: Result Comment: For patients on eltrombopag therapy, use of Dimension [place] TBIL is not recommended. Performed By: #### L 100.0100, L500.4050, L500.4100, L501.9985 ####[facility] [address] [place], [address] BUN/CRE 29.8 RATIO High 10-20 [facility] Comment on above: Performed By: #### L 100.0100, L500.4050, L500.4100, L501.9985 ####[facility] [address] [place], [address] CA,Total 8.5 mg/dL Normal 8.5-10.1 [facility] Comment on above: Performed By: #### L 100.0100, L500.4050, L500.4100, L501.9985 ####[facility] [address] [place], [address] Chloride [Moles/Vol] 110 mmol/L High 98-107 [facility] Comment on above: Performed By: #### L 100.0100, L500.4050, L500.4100, L501.9985 ####[facility] [address] [place], [address] CO2 [Moles/Vol] 27.0 mmol/L Normal 21.0-32.0 [facility] Comment on above: Performed By: #### L 100.0100, L500.4050, L500.4100, L501.9985 ####[facility] [address] [place], [address] Creatinine [Mass/Vol] 1.98 mg/dL High 0.70-1.30 [facility] Comment on above: Result Comment: The validity of the calculated GFR GFRAA in patients over70 years has not been determined. Clinical correlation isessential. Performed By: #### L 100.0100, L500.4050, L500.4100, L501.9985 ####[facility] [address] [place], [address] EST GFR - AA 42 mL/min Low >60 [facility] Comment on above: Result Comment: Afri can [place] GFR Calc Performed By: #### L 100.0100, L500.4050, L500.4100, L501.9985 ####[facility] [address] [place], [address] GAP 8 Normal 5-15 [facility] Comment on above: Performed By: #### L 100.0100, L500.4050, L500.4100, L501.9985 ####[facility] [address] [place], [address] GFR/1.73 sq M.predicted among non-blacks MDRD (S/P/Bld) [Vol rate/Area] 34 mL/min/{1.73_m2} Low >60 [facility] Comment on above: Result Comment: Non- GFR Calc Performed By: #### L 100.0100, L500.4050, L500.4100, L501.9985 ####[facility] [address] [place], [address] Globulin (S) [Mass/Vol] 3.6 g/dL Normal 2.2-4.2 [facility] Comment on above: Performed By: #### L 100.0100, L500.4050, L500.4100, L501.9985 ####[facility] [address] [place], [address] Glucose [Mass/Vol] 133 mg/dL High 74-106 [facility] Comment on above: Result Comment: Fast ing Glucose result greater than or equal to 126 mg/dLsuggests DIABETES MELLITUS per A.D.A. criteria. Performed By: #### L 100.0100, L500.4050, L500.4100, L501.9985 ####[facility] [address] [place], [address] Potassium [Moles/Vol] 4.5 mmol/L Normal 3.5-5.1 [facility] Comment on above: Performed By: #### L 100.0100, L500.4050, L500.4100, L501.9985 ####[facility] [address] [place], [address] Sodium [Moles/Vol] 145 mmol/L Normal 136-145 [facility] Comment on above: Performed By: #### L 100.0100, L500.4050, L500.4100, L501.9985 ####[facility] [address] [place], [address] T PROT 6.7 g/dL Normal 6.4-8.2 [facility] Comment on above: Performed By: #### L 100.0100, L500.4050, L500.4100, L501.9985 ####[facility] [address] [place], [address] Urea nitrogen [Mass/Vol] 59 mg/dL High 7-18 [facility] Comment on above: Performed By: #### L 100.0100, L500.4050, L500.4100, L501.9985 ####[facility] [address] [place], [address] Hemoglobin A1con 11-07-2023 HbA1c (Bld) [Mass fraction] 6.0 % High 3.8-5.6 [facility] Comment on above: Result Comment: Norm al < 5.7 % Prediabetic 5.7 - 6.4 % Diabetic >or= 6.5 % Please note range changes. Performed By: #### L 100.0100, L500.4050, L500.4100, L501.9985 ####[facility] [address] [place], [address] Lipid Profileon 11-07-2023 Cholesterol [Mass/Vol] 151 mg/dL Normal 200 [facility] Comment on above: Result Comment: <200 mg/dL Desirable 200-240 mg/dL Borderline >240 mg/dL High Risk Performed By: #### L 100.0100, L500.4050, L500.4100, L501.9985 ####[facility] [address] [place], [address] Cholesterol in HDL [Mass/Vol] 36 mg/dL Low [facility] Comment on above: Result Comment: The drugs N-Acetylcysteine and Metamizole may falselydepress this assay. Reference Range HDL <40 mg/dL Low HDL Cholesterol HDL >or= 60 mg/dL High HDL Cholesterol Performed By: #### L 100.0100, L500.4050, L500.4100, L501.9985 ####[facility] [address] [place], [address] Cholesterol in LDL [Mass/Vol] 90 mg/dL Normal 0-130 [facility] Comment on above: Performed By: #### L 100.0100, L500.4050, L500.4100, L501.9985 ####[facility] [address] [place], [address] Cholesterol in VLDL [Mass/Vol] 25 mg/dL Normal 5-40 [facility] Comment on above: Performed By: #### L 100.0100, L500.4050, L500.4100, L501.9985 ####[facility] [address] [place], [address] Triglyceride [Mass/Vol] 127 mg/dL Normal [facility] Comment on above: Result Comment: The drugs N-Acetylcysteine and Metamizole may falselydepress this assay.Serum Triglycerides Reference Interval Normal <150 mg/dL Borderline high 150 - 199 mg/dL High 200 - 499 mg/dL Very High > or = 500 mg/dL Performed By: #### L 100.0100, L500.4050, L500.4100, L501.9985 ####[facility] [address] [place], [address] .Auto Diffon 08-17-2023 Basophil, Absolute 0.0 10 3/mcL Normal 0.0-0.2 [facility] ([place]) Comment on above: Performed By: #### B 12 ####[place] [address]#### TSH, PBNP, CMP, ANEU, ADIFF, CBC, GFR, FE ####[address] [place], [place] [address] Basophils/100 WBC (Bld) 0.6 % Normal 0.0-2.5 [facility] ([place]) Comment on above: Performed By: #### B 12 ####[place] [address]#### TSH, PBNP, CMP, ANEU, ADIFF, CBC, GFR, FE ####Katielilibeth [address] [place], [place] [address] Eosinophil, Absolute 0.2 10 3/mcL Normal 0.0-0.4 [facility] ([place]) Comment on above: Performed By: #### B 12 ####[place] [address]#### TSH, PBNP, CMP, ANEU, ADIFF, CBC, GFR, FE ####Katie [address] [place], [place] [address] Eosinophils/100 WBC (Bld) 3.1 % Normal 0.0-7.0 [facility] ([place]) Comment on above: Performed By: #### B 12 ####[place] [address]#### TSH, PBNP, CMP, ANEU, ADIFF, CBC, GFR, FE ####[address] [address] Lymphocyte, Absolute 1.1 10 3/mcL Normal 0.8-3.9 [facility] ([place]) Comment on above: Performed By: #### B 12 ####[place] [address]#### TSH, PBNP, CMP, ANEU, ADIFF, CBC, GFR, FE ####Katie [address] [place], [place] [address] Lymphocytes/100 WBC (Bld) 20.8 % Normal 10.0-50.0 [facility] ([place]) Comment on above: Performed By: #### B 12 ####[place] [address]#### TSH, PBNP, CMP, ANEU, ADIFF, CBC, GFR, FE ####Pearce [address] [place], [place] [address] Monocyte, Absolute 0.4 10 3/mcL Normal 0.2-1.0 [facility] ([place]) Comment on above: Performed By: #### B 12 ####[place] [address]#### TSH, PBNP, CMP, ANEU, ADIFF, CBC, GFR, FE ####Pearce [address] [place], [place] [address] Monocytes/100 WBC (Bld) 6.9 % Normal 1.7-13.0 [facility] ([place]) Comment on above: Performed By: #### B 12 ####[place] [address]#### TSH, PBNP, CMP, ANEU, ADIFF, CBC, GFR, FE ####Pearce [address] [place], [place] [address] Neutrophils/100 WBC (Bld) 68.6 % Normal 37.0-80.0 [facility] ([place]) Comment on above: Performed By: #### B 12 ####[place] [address]#### TSH, PBNP, CMP, ANEU, ADIFF, CBC, GFR, FE ####Katie [address] [place], [place] [address] .GFRon 08-17-2023 GFR 38 ml/min/1.73sqm Normal [facility] ([place]) Comment on above: Result Comment: GFR Population [...] square meters Performed By: #### B 12 ####[place] [address]#### TSH, PBNP, CMP, ANEU, ADIFF, CBC, GFR, FE ####Katie [address] [place], [place] [address] GFR Non- 31 ml/min/1.73sqm Normal [facility] ([place]) Comment on above: Result Comment: GFR Population [...] square meters Performed By: #### B 12 ####[place] [id number]#### TSH, PBNP, CMP, ANEU, ADIFF, CBC, GFR, FE ####Katie [place] [place], [place] [address] .NEUABSon 08-17-2023 Neutrophil, Absolute 3.6 10 3/mcL Normal 2.9-6.2 [facility] ([place]) Comment on above: Performed By: #### B 12 ####[place] [address]#### TSH, PBNP, CMP, ANEU, ADIFF, CBC, GFR, FE ####Katie [address] [place], [place] [address] A1Con 08-17-2023 HbA1c (Bld) [Mass fraction] 5.9 % Normal 4.3-6.4 [facility] ([place]) Comment on above: Performed By: #### A 1C ####Katie [address] [place], [place] [address] B12on 08-17-2023 Cobalamin (Vitamin B12) [Mass/Vol] 958 pg/mL High 211-911 [facility] ([place]) Comment on above: Performed By: #### B 12 ####[place] [address]#### TSH, PBNP, CMP, ANEU, ADIFF, CBC, GFR, FE ####Katie [address] [place], [place] [address] CBCon 08-17-2023 Erythrocyte distribution width (RBC) [Ratio] 16.4 % High 11.5-14.5 [facility] ([place]) Comment on above: Performed By: #### B 12 ####[place] [address]#### TSH, PBNP, CMP, ANEU, ADIFF, CBC, GFR, FE ####Katie [address] [place], [place] [address] Hematocrit (Bld) [Volume fraction] 30.8 % Low 42.0-52.0 [facility] ([place]) Comment on above: Performed By: #### B 12 ####[place] [address]#### TSH, PBNP, CMP, ANEU, ADIFF, CBC, GFR, FE ####Katie [place] [place], [place] [address] Hgb 10.2 G/dL Low 14.0-18.0 [facility] ([place]) Comment on above: Performed By: #### B 12 ####[place] [address]#### TSH, PBNP, CMP, ANEU, ADIFF, CBC, GFR, FE ####Katie [address] [place] [id number] MCH (RBC) [Entitic mass] 30.0 pg Normal 27.0-31.2 [facility] ([place]) Comment on above: Performed By: #### B 12 ####[place] [address]#### TSH, PBNP, CMP, ANEU, ADIFF, CBC, GFR, FE ####Pearce [address] [place] [id number] MCHC 33.0 G/dL Normal 31.8-35.4 [facility] ([place]) Comment on above: Performed By: #### B 12 ####[place] [address]#### TSH, PBNP, CMP, ANEU, ADIFF, CBC, GFR, FE ####Katie [address] [place] [id number] MCV (RBC) [Entitic vol] 90.9 fL Normal 80.0-94.0 A [facility] ([place]) Comment on above: Performed By: #### B 12 ####[place] [address]#### TSH, PBNP, CMP, ANEU, ADIFF, CBC, GFR, FE ####Katie [address] [place] [id number] Platelet 99 10 3/mcL Low 130-400 [facility] ([place]) Comment on above: Performed By: #### B 12 ####[place] [address]#### TSH, PBNP, CMP, ANEU, ADIFF, CBC, GFR, FE ####Katie [place] [place], [place] [address] Platelet mean volume (Bld) [Entitic vol] 9.0 fL Normal 7.4-10.4 [facility] ([place]) Comment on above: Performed By: #### B 12 ####[place] [address]#### TSH, PBNP, CMP, ANEU, ADIFF, CBC, GFR, FE ####[address] [place] [id number] RBC 3.39 10 6/mcL Low 4.04-6.13 [facility] Comment on above: Performed By: #### B 12 ####[place] [address]#### TSH, PBNP, CMP, ANEU, ADIFF, CBC, GFR, FE ####[id number] [place] [id number] WBC 5.2 10 3/mcL Normal 4.6-10.8 [facility] Comment on above: Performed By: #### B 12 ####[place] [address]#### TSH, PBNP, CMP, ANEU, ADIFF, CBC, GFR, FE ####[id number] [place], [place] [address] CMPon 08-17-2023 Albumin Level 3.5 G/dL Normal 3.4-4.8 [facility] Comment on above: Performed By: #### B 12 ####[place] [id number]#### TSH, PBNP, CMP, ANEU, ADIFF, CBC, GFR, FE ####[id number] [place] [id number] Albumin/Globulin [Mass ratio] 1.0 {ratio} Low 1.1-2.5 [facility] Comment on above: Performed By: #### B 12 ####[place] [address]#### TSH, PBNP, CMP, ANEU, ADIFF, CBC, GFR, FE ####[id number] [place], [place] [address] ALP [Catalytic activity/Vol] 74 U/L Normal 40-135 [facility] Comment on above: Performed By: #### B 12 ####[place] [address]#### TSH, PBNP, CMP, ANEU, ADIFF, CBC, GFR, FE ####[facility] [place], [place] [address] ALT [Catalytic activity/Vol] 23 U/L Normal 16-63 [facility] ([place] Comment on above: Performed By: #### B 12 ####[place] [address]#### TSH, PBNP, CMP, ANEU, ADIFF, CBC, GFR, FE ####[facility] [place] [id number] AST [Catalytic activity/Vol] 15 U/L Normal 10-40 [facility] ([place] Comment on above: Performed By: #### B 12 ####[place] [address]#### TSH, PBNP, CMP, ANEU, ADIFF, CBC, GFR, FE ####[facility] [place], [place] [address] Bili Total 0.5 mg/dL Normal 0.2-1.0 [facility] [place] Comment on above: Result Comment: Use of this assay is not recommended for patients undergoing treatment with eltrombopag due to the potential for falsely elevated results. Performed By: #### B 12 ####[place] [address]#### TSH, PBNP, CMP, ANEU, ADIFF, CBC, GFR, FE ####[facility] [place] [id number] BUN/Creatinine Ratio 31 ratio High 7-27 [facility] ([place]) Comment on above: Performed By: #### B 12 ####[place] [address]#### TSH, PBNP, CMP, ANEU, ADIFF, CBC, GFR, FE ####Pearce [address] [place], [place] [address] Calcium [Mass/Vol] 8.9 mg/dL Normal 8.4-10.2 [facility] ([place]) Comment on above: Performed By: #### B 12 ####[place] [address]#### TSH, PBNP, CMP, ANEU, ADIFF, CBC, GFR, FE ####[facility] [place], [place] [address] Chloride [Moles/Vol] 109 mmol/L High 98-107 [facility] ([place] Comment on above: Performed By: #### B 12 ####[place] [address]#### TSH, PBNP, CMP, ANEU, ADIFF, CBC, GFR, FE ####[facility] [place] [address] CO2 [Moles/Vol] 28 mmol/L Normal 23-31 [facility] [place] Comment on above: Performed By: #### B 12 ####[place] [address]#### TSH, PBNP, CMP, ANEU, ADIFF, CBC, GFR, FE ####[facility] [place], [place] [address] Creatinine [Mass/Vol] 2.03 mg/dL High 0.70-1.30 [facility] ([place]) Comment on above: Performed By: #### B 12 ####[place] [address]#### TSH, PBNP, CMP, ANEU, ADIFF, CBC, GFR, FE ####[facility] [place] [id number] Electrolyte Balance 10.0 mEq/L Normal 4.0-15.0 [facility] ([place] Comment on above: Performed By: #### B 12 ####[place] [address]#### TSH, PBNP, CMP, ANEU, ADIFF, CBC, GFR, FE ####[facility] [address] [place], [place] [address] Globulin 3.5 G/dL Normal [facility] ([place] Comment on above: Performed By: #### B 12 ####[place] [address]#### TSH, PBNP, CMP, ANEU, ADIFF, CBC, GFR, FE ####Katie [address] [place], [place] [address] Glucose [Mass/Vol] 107 mg/dL Normal 83-110 [facility] ([place] Comment on above: Performed By: #### B 12 ####[place] [address]#### TSH, PBNP, CMP, ANEU, ADIFF, CBC, GFR, FE ####Pearce [address] [place], [place] [address] Potassium [Moles/Vol] 4.5 mmol/L Normal 3.5-5.1 [facility] ([place] Comment on above: Performed By: #### B 12 ####[place] [address]#### TSH, PBNP, CMP, ANEU, ADIFF, CBC, GFR, FE ####Katie [address] [place], [place] [address] Sodium [Moles/Vol] 147 mmol/L High 136-145 [facility] ([place] Comment on above: Performed By: #### B 12 ####[place] [address]#### TSH, PBNP, CMP, ANEU, ADIFF, CBC, GFR, FE ####[address]ce [address] [place], [place] [address] Total Protein 7.0 G/dL Normal 6.4-8.2 [facility] ([place] Comment on above: Performed By: #### B 12 ####[place] [address]#### TSH, PBNP, CMP, ANEU, ADIFF, CBC, GFR, FE ####Katie [address] [place], [place] [address] Urea nitrogen [Mass/Vol] 62 mg/dL High 7-18 [facility] ([place] Comment on above: Performed By: #### B 12 ####[address] [address]#### TSH, PBNP, CMP, ANEU, ADIFF, CBC, GFR, FE ####Katie [address] [place], [place] [address] FEon 08-17-2023 Iron [Mass/Vol] 97 ug/dL Normal 65-175 [facility] ([place] Comment on above: Performed By: #### B 12 ####[place] [id number]#### TSH, PBNP, CMP, ANEU, ADIFF, CBC, GFR, FE ####[facility] [place] [place], [place] [address] LABORATORYOrdered By: SYSTEM SYSTEM on 08-17-2023 HbA1c [...] B (Bld) [Mass/Vol] 1234 pg/mL High 0-450 [facility] ([place] Comment on above: Result Comment: NT-p roBNP results of less than 300 pg/mL effectivelyrules out acute congestive heart failure with 99% negative predictive value. Performed By: #### B 12 ####[address] [address]#### TSH, PBNP, CMP, ANEU, ADIFF, CBC, GFR, FE ####[facility] [place], [place] [address] TSHon 08-17-2023 TSH Qn 2.84 m[IU]/L Normal 0.36-3.74 [facility] ([place] Comment on above: Performed By: #### B 12 ####[address] [address]#### TSH, PBNP, CMP, ANEU, ADIFF, CBC, GFR, FE ####[facility] [place], [place] [address] .Auto Diffon 07-03-2023 Basophil, Absolute 0.0 10 3/mcL Normal 0.0-0.2 [facility] ([place]) Comment on above: Performed By: #### A DIFF, GFR, CBC, PBNP, ANEU, CMP, RETO ####Katie [address] [place], [place] [address] Basophils/100 WBC (Bld) 0.5 % Normal 0.0-2.5 [facility] ([place]) Comment on above: Performed By: #### A DIFF, GFR, CBC, PBNP, ANEU, CMP, RETO ####[address]atie [place] [place], [place] [address] Eosinophil, Absolute 0.2 10 3/mcL Normal 0.0-0.4 [facility] ([place] Comment on above: Performed By: #### A DIFF, GFR, CBC, PBNP, ANEU, CMP, RETO ####Katie [address] [place], [place] [address] Eosinophils/100 WBC (Bld) 3.6 % Normal 0.0-7.0 [facility] ([place] Comment on above: Performed By: #### A DIFF, GFR, CBC, PBNP, ANEU, CMP, RETO ####Katie [address] [place], [place] [address] Lymphocyte, Absolute 1.4 10 3/mcL Normal 0.8-3.9 [facility] ([place] Comment on above: Performed By: #### A DIFF, GFR, CBC, PBNP, ANEU, CMP, RETO ####Katie [address] [place], [place] [address] Lymphocytes/100 WBC (Bld) 26.5 % Normal 10.0-50.0 [facility] ([place] Comment on above: Performed By: #### A DIFF, GFR, CBC, PBNP, ANEU, CMP, RETO ####Katie [address] [place], [place] [address] Monocyte, Absolute 0.4 10 3/mcL Normal 0.2-1.0 [facility] ([place] Comment on above: Performed By: #### A DIFF, GFR, CBC, PBNP, ANEU, CMP, RETO ####Katie [address] [place], [place] [address] Monocytes/100 WBC (Bld) 8.3 % Normal 1.7-13.0 [facility] ([place]) Comment on above: Performed By: #### A DIFF, GFR, CBC, PBNP, ANEU, CMP, RETO ####Katie [address] [place], [place] [address] Neutrophils/100 WBC (Bld) 61.1 % Normal 37.0-80.0 [facility] ([place] Comment on above: Performed By: #### A DIFF, GFR, CBC, PBNP, ANEU, CMP, RETO ####Katie [place] [place], [place] [address] .GFRon 07-03-2023 GFR 35 ml/min/1.73sqm Normal [facility] ([place] Comment on above: Result Comment: GFR Population [...] GFR, CBC, PBNP, ANEU, CMP, RETO ####Katiezac [address] [place], [place] [address] GFR Non- 29 ml/min/1.73sqm Normal [facility] ([place] Comment on above: Result Comment: GFR Population [...] GFR, CBC, PBNP, ANEU, CMP, RETO ####Katie [address] [place], [place] [address] .NEUABSon 07-03-2023 Neutrophil, Absolute 3.2 10 3/mcL Normal 2.9-6.2 [facility] ([place] Comment on above: Performed By: #### A DIFF, GFR, CBC, PBNP, ANEU, CMP, RETO ####Katie [place] [place], [place] [address] CBCon 07-03-2023 Erythrocyte distribution width (RBC) [Ratio] 15.5 % High 11.5-14.5 [facility] ([place] Comment on above: Performed By: #### A DIFF, GFR, CBC, PBNP, ANEU, CMP, RETO ####Katie [place] [place], [place] [address] Hematocrit (Bld) [Volume fraction] 26.2 % Low 42.0-52.0 [facility] ([place] Comment on above: Performed By: #### A DIFF, GFR, CBC, PBNP, ANEU, CMP, RETO ####Katie [address] [place], [place] [address] Hgb 8.8 G/dL Low 14.0-18.0 [facility] ([place] Comment on above: Performed By: #### A DIFF, GFR, CBC, PBNP, ANEU, CMP, RETO ####Katie [address] [place], [place] [address] MCH (RBC) [Entitic mass] 29.0 pg Normal 27.0-31.2 [facility] ([place] Comment on above: Performed By: #### A DIFF, GFR, CBC, PBNP, ANEU, CMP, RETO ####Katie [address] [place], [place] [address] MCHC 33.6 G/dL Normal 31.8-35.4 [facility] ([place] Comment on above: Performed By: #### A DIFF, GFR, CBC, PBNP, ANEU, CMP, RETO ####Katiezac [address]Hg[address] [place], [place] [address] MCV (RBC) [Entitic vol] 86.4 fL Normal 80.0-94.0 [facility] ([place]) Comment on above: Performed By: #### A DIFF, GFR, CBC, PBNP, ANEU, CMP, RETO ####Katie [place] [place], [place] [address] Platelet 107 10 3/mcL Low 130-400 [facility] ([place] Comment on above: Performed By: #### A DIFF, GFR, CBC, PBNP, ANEU, CMP, RETO ####Katie [place] [place], [place] [address] Platelet mean volume (Bld) [Entitic vol] 9.4 fL Normal 7.4-10.4 [facility] ([place] Comment on above: Performed By: #### A DIFF, GFR, CBC, PBNP, ANEU, CMP, RETO ####Katie [place] [place], [place] [address] RBC 3.03 10 6/mcL Low 4.04-6.13 [facility] ([place] Comment on above: Performed By: #### A DIFF, GFR, CBC, PBNP, ANEU, CMP, RETO ####Katiezac [address]qyf[address] [place], [place] [address] WBC 5.3 10 3/mcL Normal 4.6-10.8 [facility] ([place] Comment on above: Performed By: #### A DIFF, GFR, CBC, PBNP, ANEU, CMP, RETO ####Katie [place] [place], [place] [address] CMPon 07-03-2023 Albumin Level 3.3 G/dL Low 3.4-4.8 [facility] ([place] Comment on above: Performed By: #### A DIFF, GFR, CBC, PBNP, ANEU, CMP, RETO ####Katie [place] [place], [place] [address] Albumin/Globulin [Mass ratio] 1.1 {ratio} Normal 1.1-2.5 [facility] ([place] Comment on above: Performed By: #### A DIFF, GFR, CBC, PBNP, ANEU, CMP, RETO ####Katie [place] [place], [place] [address] ALP [Catalytic activity/Vol] 76 U/L Normal 40-135 [facility] ([place] Comment on above: Performed By: #### A DIFF, GFR, CBC, PBNP, ANEU, CMP, RETO ####Katie [address] [place], [place] [address] ALT [Catalytic activity/Vol] 27 U/L Normal 16-63 [facility] ([place] Comment on above: Performed By: #### A DIFF, GFR, CBC, PBNP, ANEU, CMP, RETO ####Katie [address] [place], [place] [address] AST [Catalytic activity/Vol] 17 U/L Normal 10-40 [facility] ([place] Comment on above: Performed By: #### A DIFF, GFR, CBC, PBNP, ANEU, CMP, RETO ####Katie [address] [place], [place] [address] Bili Total 0.5 mg/dL Normal 0.2-1.0 [facility] ([place] Comment on above: Result Comment: Use of this assay is not recommended for patients undergoing treatment with eltrombopag due to the potential for falsely elevated results. Performed By: #### A DIFF, GFR, CBC, PBNP, ANEU, CMP, RETO ####Katie [place] [place], [place] [address] BUN/Creatinine Ratio 27 ratio Normal 7-27 [facility] ([place]) Comment on above: Performed By: #### A DIFF, GFR, CBC, PBNP, ANEU, CMP, RETO ####Katie [place] [place], [place] [address] Calcium [Mass/Vol] 8.4 mg/dL Normal 8.4-10.2 [facility] ([place]) Comment on above: Performed By: #### A DIFF, GFR, CBC, PBNP, ANEU, CMP, RETO ####Katie [place] [place], [place] [address] Chloride [Moles/Vol] 108 mmol/L High 98-107 [facility] ([place]) Comment on above: Performed By: #### A DIFF, GFR, CBC, PBNP, ANEU, CMP, RETO ####Katie [place] [place], [place] [address] CO2 [Moles/Vol] 30 mmol/L Normal 23-31 [facility] ([place] Comment on above: Performed By: #### A DIFF, GFR, CBC, PBNP, ANEU, CMP, RETO ####Katie [address] [place], [place] [address] Creatinine [Mass/Vol] 2.16 mg/dL High 0.70-1.30 [facility] ([place]) Comment on above: Performed By: #### A DIFF, GFR, CBC, PBNP, ANEU, CMP, RETO ####Katie [place] [place], [place] [address] Electrolyte Balance 8.0 mEq/L Normal 4.0-15.0 [facility] ([place]) Comment on above: Performed By: #### A DIFF, GFR, CBC, PBNP, ANEU, CMP, RETO ####Katie [address] [place], [place] [address] Globulin 2.9 G/dL Normal [facility] ([place] Comment on above: Performed By: #### A DIFF, GFR, CBC, PBNP, ANEU, CMP, RETO ####Katie [place] [place], [place] [address] Glucose [Mass/Vol] 153 mg/dL High 83-110 [facility] ([place] Comment on above: Performed By: #### A DIFF, GFR, CBC, PBNP, ANEU, CMP, RETO ####Katie [address] [place], [place] [address] Potassium [Moles/Vol] 4.1 mmol/L Normal 3.5-5.1 [facility] ([place]) Comment on above: Performed By: #### A DIFF, GFR, CBC, PBNP, ANEU, CMP, RETO ####Katie [address] [place], [place] [address] Sodium [Moles/Vol] 146 mmol/L High 136-145 [facility] ([place] Comment on above: Performed By: #### A DIFF, GFR, CBC, PBNP, ANEU, CMP, RETO ####Katie [address] [place], [place] [address] Total Protein 6.2 G/dL Low 6.4-8.2 [facility] ([place] Comment on above: Performed By: #### A DIFF, GFR, CBC, PBNP, ANEU, CMP, RETO ####Katie [address] [place], [place] [address] Urea nitrogen [Mass/Vol] 58 mg/dL High 7-18 [facility] ([place] Comment on above: Performed By: #### A DIFF, GFR, CBC, PBNP, ANEU, CMP, RETO ####Katie [place] [place], [place] [address] PBNPon 07-03-2023 Natriuretic peptide B (Bld) [Mass/Vol] 1518 pg/mL High 0-450 [facility] ([place]) Comment on above: Result Comment: NT-p roBNP results of less than 300 pg/mL effectivelyrules out acute congestive heart failure with 99% negative predictive value. Performed By: #### A DIFF, GFR, CBC, PBNP, ANEU, CMP, RETO ####Katie [address] [place], [place] [address] RETO (AO)on 07-03-2023 Immature Retic Fraction 0.51 IRF High 0.20-0.46 [facility] ([place]) Comment on above: Performed By: #### A DIFF, GFR, CBC, PBNP, ANEU, CMP, RETO ####Katie [address] [place], [place] [address] Reticulocytes, Auto 1.8 % Normal 0.2-2.3 [facility] ([place]) Comment on above: Performed By: #### A DIFF, GFR, CBC, PBNP, ANEU, CMP, RETO ###Keyshawn [address] [place], [place] [address] Absolute lymphocyte countOrd ered By: Dalton Forrest on 06-27-2023 Lymphocytes Auto (Unsp spec) [#/Vol] 1.13 10*3/uL 0.83-4.51 [facility] Automated lymphocyte count a s percentage of total leukocytesOrdered By: Dalton Forrest on 06-27-2023 Lymphocytes/100 WBC Auto (Unsp spec) 23.7 % 19-41 [facility] Basophil percentageOrdered B y: Dalton Forrest on 06-27-2023 Basophil percentage 0 SEEN /hpf 0-5 [facility] Basophils/100 WBC (Bld) 0.4 % 0-1 [facility] Bilirubin [Mass/Vol] 0.70 mg/dL 0.20-1.00 [facility] Comment on above: For patients on eltr ombopag therapy, use of Dimension [place] TBIL is not recommended. Chloride [Moles/Vol] 107 mmol/L 98-107 [facility] Eosinophils/100 WBC (Bld) 3.8 % 0-5 [facility] Glucose [Mass/Vol] 257 mg/dL 74-106 [facility] Comment on above: Glucose result great er than or equal to 200 mg/dLsuggests DIABETES MELLITUS per A.D.A. criteria. Hemoglobin (Bld) [Mass/Vol] 8.5 g/dL 13.0-16.5 [facility] Monocytes/100 WBC (Bld) 9.6 % 0-10 [facility] Neutrophils (Bld) [#/Vol] 3.0 10*3/uL 2.0-7.7 [facility] Neutrophils/100 WBC (Bld) 62.3 % 47-70 [facility] Potassium [Moles/Vol] 4.0 mmol/L 3.5-5.1 [facility] Protein [Mass/Vol] 6.7 g/dL 6.4-8.2 [facility] Sodium [Moles/Vol] 142 mmol/L 136-145 [facility] WBC (Bld) [#/Vol] 4.8 10*3/uL 4.4-11.0 [facility] Bilirubin Test strip Ql (U)O rdered By: Dalton Forrest on 06-27-2023 Bilirubin Ql (U) Negative Negative [facility] Blood platelet adequacy dete ction by light microscopyOrdered By: Dalton Forrest on 06-27-2023 Platelets LM Ql (Bld) SLT DEC ADEQ [facility] Determination of erythrocyte mean corpuscular volume (MCV)Ordered By: Dalton Forrest on 06-27-2023 MCV (RBC) [Entitic vol] 90.2 fL 80-94 [facility] Erythrocyte distribution wid th ratioOrdered By: Dalton Forrest on 06-27-2023 Erythrocyte distribution width (RBC) [Ratio] 14.3 % 11.6-14.6 [facility] Erythrocyte distribution wid th standard deviationOrdered By: Dalton Forrest on 06-27-2023 Erythrocyte distribution width (RBC) [Entitic vol] 47.0 fL 35.1-43.9 [facility] Hematocrit Auto (Bld) [Volum e fraction]Ordered By: Dalton Forrest on 06-27-2023 Hematocrit (Bld) [Volume fraction] 27.5 % 40-54 [facility] Immature granulocytes/100 WB C Auto (Bld)Ordered By: Dalton Forrest on 06-27-2023 Immature granulocytes/100 WBC (Bld) 0.200 % 0.0-0.9 [facility] Comment on above: IG% - Immature Granu locytes (promyelocytes, myelocytes and metamyelocytes) > 1% indicates that a LEFT SHIFT is Present. Ketones Test strip Ql (U)Ord ered By: Dalton Forrest on 06-27-2023 Ketones Ql (U) Negative Negative [facility] Laboratory - Chemistry and C hemistry - challengeOrdered By: Dalton Forrest on 06-27-2023 Albumin/Globulin [Mass ratio] 0.8 {ratio} 0.9-2.4 [facility] ALP [Catalytic activity/Vol] 73 U/L 45-117 [facility] ALT [Catalytic activity/Vol] 37 U/L 16-61 [facility] CO2 [Moles/Vol] 30.0 mmol/L 21.0-32.0 [facility] Globulin (S) [Mass/Vol] 3.7 g/dL 2.2-4.2 [facility] Urea nitrogen/Creatinine [Mass ratio] 26.3 mg/mg 10-20 [facility] Laboratory - Hematology and Cell countsOrdered By: Dalton Forrest on 06-27-2023 MCH (RBC) [Entitic mass] 27.9 pg 27.0-32.0 [facility] MCHC (RBC) [Mass/Vol] 30.9 g/dL 32-36 [facility] Nucleated RBC/100 WBC (Bld) [Ratio] 0 % 0-5 [facility] Platelet mean volume (Bld) [Entitic vol] 11.4 fL 6.2-12.0 [facility] Platelets (Bld) [#/Vol] 88 10*3/uL 150-450 [facility] Mucus LM Ql (Urine sed)Order ed By: Dalton Forrest on 06-27-2023 Mucus Ql (Urine sed) RARE /hpf [facility] Nitrite Test strip Ql (U)Ord ered By: Dalton Forrest on 06-27-2023 Nitrite Ql (U) Negative Negative [facility] No Panel InformationOrdered By: Dalton Forrest on 06-27-2023 Urine RBC 0 SEEN /hpf 0-5 [facility] Estimated GFR (MDRD) Amer 33 mL/min >60 [facility] Comment on above: GFR Calc Estimated GFR (MDRD) Non-Af Amer 27 mL/min >60 [facility] Comment on above: Non- GFR Calc Troponin I High Sensitivity 31 pg/mL 3.0-78.0 [facility] Comment on above: Please Note: New Arti t Units and Gender Specific Reference Ranges. For more information see Policy Stat Procedure [place] High Sensitivity Troponin (TNIH) and attachments. Protein Test strip Ql (U)Ord ered By: Dalton Forrest on 06-27-2023 Protein Ql (U) 30 mg/dl Negative [facility] RBC Auto (Bld) [#/Vol]Ordere d By: Dalton Forrest on 06-27-2023 RBC (Bld) [#/Vol] 3.05 10*6/uL 4.6-6.2 [facility] Serum or plasma calcium elmira urement (mass/volume)Ordered By: Dalton Forrest on 06-27-2023 Calcium [Mass/Vol] 9.2 mg/dL 8.5-10.1 [facility] Serum or plasma creatinine m easurement (mass/volume)Ordered By: Dalton Forrest on 06-27-2023 Creatinine [Mass/Vol] 2.43 mg/dL 0.70-1.30 [facility] Comment on above: The validity of the calculated GFR & GFRAA in patients over 70 years has not been determined. Clinical correlation is essential. Serum or plasma urea nitroge n measurement (mass/volume)Ordered By: Dalton Forrest on 06-27-2023 Urea nitrogen [Mass/Vol] 64 mg/dL 7-18 [facility] Squamous epithelial cells de tection in urine sediment by light microscopyOrdered By: Dalton Forrest on 06-27-2023 Epithelial cells.squamous LM Ql (Urine sed) 0-5 SEEN /hpf 0-5 [facility] Thin prep Papanicolaou smear with manual screeningOrdered By: Dalton Forrest on 06-27-2023 Thin prep Papanicolaou smear with manual screening 3.0 g/dL 3.2-5.0 [facility] Thin prep Papanicolaou smear with manual screening 23 U/L 15-37 [facility] Thin prep Papanicolaou smear with manual screening 5 5-15 [facility] Urine blood detectionOrdered By: Dalton Forrest on 06-27-2023 RBC Ql (U) Negative Negative [facility] Urine clarityOrdered By: Sivan Forrest on 06-27-2023 Clarity (U) Clear Clear [facility] Urine color determinationOrd ered By: Dalton Forrest on 06-27-2023 Color (U) Yellow Yellow [facility] Urine glucose detectionOrder ed By: Dalton Forrest on 06-27-2023 Glucose Ql (U) 1000 mg/dl Normal [facility] Urine leukocyte esterase det ection by dipstickOrdered By: Dalton Forrest on 06-27-2023 Leukocyte esterase Test strip Ql (U) Negative Negative [facility] Urine pHOrdered By: Dalton buchanan on 06-27-2023 pH (U) 5.0 [pH] 5.0 - 8.0 [facility] Urine sediment bacteria coun t by microscopy (number/high power field)Ordered By: Dalton Forrest on 06-27-2023 Bacteria LM.HPF (Urine sed) [#/Area] 0 /[HPF] None Seen [facility] Urine specific gravity measu rementOrdered By: Dalton Forrest on 06-27-2023 Specific gravity (U) [Rel density] 1.015 1.002-1.030 [facility] Urine urobilinogen measureme ntOrdered By: Dalton Forrest on 06-27-2023 Urobilinogen Ql (U) Normal mg/dl Normal [facility] .Auto Diffon 06-11-2023 Basophil, Absolute 0.0 10 3/mcL Normal 0.0-0.3 [facility] ([place] Comment on above: Performed By: #### G FR, CBC, ANEU, BMP, ADIFF ####[address] [address] Basophils/100 WBC (Bld) 0.2 % Normal 0.0-2.5 [facility] ([place]) Comment on above: Performed By: #### G FR, CBC, ANEU, BMP, ADIFF ####[address] [address] Eosinophil, Absolute 0.1 10 3/mcL Normal 0.0-0.7 [facility] ([place] Comment on above: Performed By: #### G FR, CBC, ANEU, BMP, ADIFF ####[address] [address] Eosinophils/100 WBC (Bld) 1.4 % Normal 0.0-6.0 [facility] ([place] Comment on above: Performed By: #### G FR, CBC, ANEU, BMP, ADIFF ####[address] [address] Lymphocyte, Absolute 1.5 10 3/mcL Normal 0.9-4.3 [facility] ([place] Comment on above: Performed By: #### G FR, CBC, ANEU, BMP, ADIFF ####[address] [address] Lymphocytes/100 WBC (Bld) 21.0 % Normal 20.0-40.0 [facility] ([place] Comment on above: Performed By: #### G FR, CBC, ANEU, BMP, ADIFF ####[address] [address] Monocyte, Absolute 0.4 10 3/mcL Normal 0.1-1.4 [facility] ([place] Comment on above: Performed By: #### G FR, CBC, ANEU, BMP, ADIFF ####[address] [address] Monocytes/100 WBC (Bld) 5.1 % Normal 2.0-13.0 [facility] ([place]) Comment on above: Performed By: #### G FR, CBC, ANEU, BMP, ADIFF ####[address] [address] Neutrophils/100 WBC (Bld) 72.3 % Normal 50.0-75.0 [facility] ([place] Comment on above: Performed By: #### G FR, CBC, ANEU, BMP, ADIFF ####[address] [address] .GFRon 06-11-2023 GFR 36 ml/min/1.73sqm Normal [facility] ([place] Comment on above: Result Comment: GFR Population [...] #### G FR, CBC, ANEU, BMP, ADIFF ####[address] [address] GFR Non- 29 ml/min/1.73sqm Normal [facility] ([place] Comment on above: Result Comment: GFR Population [...] #### G FR, CBC, ANEU, BMP, ADIFF ####[address] [address] .NEUABSon 06-11-2023 Neutrophil, Absolute 5.2 10 3/mcL Normal 2.3-8.1 [facility] ([place] Comment on above: Performed By: #### G FR, CBC, ANEU, BMP, ADIFF ####[address] [address] BMPon 06-11-2023 BUN/Creatinine Ratio 47.9 ratio High 10.0-22.0 [facility] ([place] Comment on above: Performed By: #### G FR, CBC, ANEU, BMP, ADIFF ####[address] [address] Calcium [Mass/Vol] 9.2 mg/dL Normal 8.7-10.4 [facility] ([place] Comment on above: Performed By: #### G FR, CBC, ANEU, BMP, ADIFF ####[address] [address] Chloride [Moles/Vol] 103 mmol/L Normal 98-110 [facility] ([place] Comment on above: Performed By: #### G FR, CBC, ANEU, BMP, ADIFF ####[address] [address] CO2 [Moles/Vol] 28 mmol/L Normal 22-32 [facility] ([place] Comment on above: Performed By: #### G FR, CBC, ANEU, BMP, ADIFF ####[address] [address] Creatinine [Mass/Vol] 2.15 mg/dL High 0.60-1.40 [facility] ([place]) Comment on above: Performed By: #### G FR, CBC, ANEU, BMP, ADIFF ####[address] [address] Electrolyte Balance 8.0 mEq/L Normal 4.0-15.0 [facility] ([place]) Comment on above: Performed By: #### G FR, CBC, ANEU, BMP, ADIFF ####[place] [address] Glucose [Mass/Vol] 135 mg/dL High 82-115 [facility] ([place]) Comment on above: Performed By: #### G FR, CBC, ANEU, BMP, ADIFF ####[address] [address] Potassium [Moles/Vol] 4.7 mmol/L Normal 3.5-5.0 [facility] ([place]) Comment on above: Performed By: #### G FR, CBC, ANEU, BMP, ADIFF ####[address] [address] Sodium [Moles/Vol] 139 mmol/L Normal 136-145 [facility] ([place]) Comment on above: Performed By: #### G FR, CBC, ANEU, BMP, ADIFF ####[address] [address] Urea nitrogen [Mass/Vol] 103.0 mg/dL Critica lly abnormal 8.0-22.0 [facility] ([place]) Comment on above: Performed By: #### G FR, CBC, ANEU, BMP, ADIFF ####[place] [address] CBCon 06-11-2023 Erythrocyte distribution width (RBC) [Ratio] 15.8 % High 11.5-15.5 [facility] ([place]) Comment on above: Performed By: #### G FR, CBC, ANEU, BMP, ADIFF ####[place] [address] Hematocrit (Bld) [Volume fraction] 27.0 % Low 40.0-52.0 [facility] ([place] Comment on above: Performed By: #### G FR, CBC, ANEU, BMP, ADIFF ####[place] [address] Hgb 9.3 G/dL Low 13.0-17.5 [facility] ([place] Comment on above: Performed By: #### G FR, CBC, ANEU, BMP, ADIFF ####[place] [address] MCH (RBC) [Entitic mass] 29.7 pg Normal 27.0-33.0 [facility] ([place] Comment on above: Performed By: #### G FR, CBC, ANEU, BMP, ADIFF ####[place] [address] MCHC 34.4 G/dL Normal 32.0-36.0 [facility] ([place] Comment on above: Performed By: #### G FR, CBC, ANEU, BMP, ADIFF ####[place] [address] MCV (RBC) [Entitic vol] 86.5 fL Normal 81.0-100.0 [facility] ([place]) Comment on above: Performed By: #### G FR, CBC, ANEU, BMP, ADIFF ####[place] [address] Platelet 138 10 3/mcL Low 150-450 [facility] ([place] Comment on above: Performed By: #### G FR, CBC, ANEU, BMP, ADIFF ####[place] [address] [place] [address] Platelet mean volume (Bld) [Entitic vol] 8.9 fL Normal 6.4-10.5 [facility] ([place]) Comment on above: Performed By: #### G FR, CBC, ANEU, BMP, ADIFF ####[facility] [place] [address] RBC 3.13 10 6/mcL Low 4.50-6.00 [facility] ([place]) Comment on above: Performed By: #### G FR, CBC, ANEU, BMP, ADIFF ####[place] [address] [place] [address] WBC 7.2 10 3/mcL Normal 4.5-10.8 [facility] ([place]) Comment on above: Performed By: #### G FR, CBC, ANEU, BMP, ADIFF ####[place] [address] LABORATORYOrdered By: Kelly Romero on 06-11-2023 Glucose [Mass/Vol] 161 mg/dL High 82 - 115 mg/dL [facility] Work Phone: Glucose [Mass/Vol] 136 mg/dL High 82 - 115 mg/dL [facility] Work Phone: LABORATORYOrdered By: Katie Wilkins on 06-11-2023 Glucose [Mass/Vol] 136 mg/dL High 82 - 115 mg/dL [facility] Work Phone: LABORATORYOrdered By: SYSTEM SYSTEM on [...] [Vol rate/Area] 36 ml/min/1.73sqm Invalid Interpretation Code [facility] Comment on above: Interpretive Data: [...] [Vol rate/Area] 29 ml/min/1.73sqm Invalid Interpretation Code [facility] Comment on above: Interpretive Data: [...] VIEWon 06-11-2023 XR CHEST 1 VIEW Normal [facility] ([place]) .Auto Diffon 06-10-2023 Basophil, Absolute 0.0 10 3/mcL Normal 0.0-0.3 [facility] ([place]) Comment on above: Performed By: #### A DIFF, ANEU, PBNP, MG, GFR, CBC, BMP, PRO ####[address] [address] Basophils/100 WBC (Bld) 0.0 % Normal 0.0-2.5 [facility] ([place]) Comment on above: Performed By: #### A DIFF, ANEU, PBNP, MG, GFR, CBC, BMP, PRO ####[address] [address] Eosinophil, Absolute 0.0 10 3/mcL Normal 0.0-0.7 [facility] ([place]) Comment on above: Performed By: #### A DIFF, ANEU, PBNP, MG, GFR, CBC, BMP, PRO ####[address] [address] Eosinophils/100 WBC (Bld) 0.1 % Normal 0.0-6.0 [facility] ([place] Comment on above: Performed By: #### A DIFF, ANEU, PBNP, MG, GFR, CBC, BMP, PRO ####[address] [address] Lymphocyte, Absolute 0.9 10 3/mcL Normal 0.9-4.3 [facility] ([place]) Comment on above: Performed By: #### A DIFF, ANEU, PBNP, MG, GFR, CBC, BMP, PRO ####[address] [address] Lymphocytes/100 WBC (Bld) 6.8 % Low 20.0-40.0 [facility] ([place]) Comment on above: Performed By: #### A DIFF, ANEU, PBNP, MG, GFR, CBC, BMP, PRO ####[address] [address] Monocyte, Absolute 0.4 10 3/mcL Normal 0.1-1.4 [facility] ([place]) Comment on above: Performed By: #### A DIFF, ANEU, PBNP, MG, GFR, CBC, BMP, PRO ####[address] [address] Monocytes/100 WBC (Bld) 3.2 % Normal 2.0-13.0 [facility] ([place]) Comment on above: Performed By: #### A DIFF, ANEU, PBNP, MG, GFR, CBC, BMP, PRO ####[address] [address] Neutrophils/100 WBC (Bld) 89.9 % High 50.0-75.0 [facility] ([place]) Comment on above: Performed By: #### A DIFF, ANEU, PBNP, MG, GFR, CBC, BMP, PRO ####[address] [address] .GFRon 06-10-2023 GFR 40 ml/min/1.73sqm Normal [facility] ([place]) Comment on above: Result Comment: GFR Population [...] ANEU, PBNP, MG, GFR, CBC, BMP, PRO ####[address] [address] GFR Non- 33 ml/min/1.73sqm Normal [facility] ([place] Comment on above: Result Comment: GFR Population [...] ANEU, PBNP, MG, GFR, CBC, BMP, PRO ####[place] [address] .NEUABSon 06-10-2023 Neutrophil, Absolute 12.4 10 3/mcL High 2.3-8.1 [facility] ([place]) Comment on above: Performed By: #### A DIFF, ANEU, PBNP, MG, GFR, CBC, BMP, PRO ####[place] [address] BMPon 06-10-2023 BUN/Creatinine Ratio 49.0 ratio High 10.0-22.0 [facility] ([place]) Comment on above: Performed By: #### A DIFF, ANEU, PBNP, MG, GFR, CBC, BMP, PRO ####[address] [address] Calcium [Mass/Vol] 9.0 mg/dL Normal 8.7-10.4 [facility] ([place]) Comment on above: Performed By: #### A DIFF, ANEU, PBNP, MG, GFR, CBC, BMP, PRO ####[place] [address] Chloride [Moles/Vol] 103 mmol/L Normal 98-110 [facility] ([place]) Comment on above: Performed By: #### A DIFF, ANEU, PBNP, MG, GFR, CBC, BMP, PRO ####[place] [address] CO2 [Moles/Vol] 25 mmol/L Normal 22-32 [facility] ([place]) Comment on above: Performed By: #### A DIFF, ANEU, PBNP, MG, GFR, CBC, BMP, PRO ####[address] [address] Creatinine [Mass/Vol] 1.96 mg/dL High 0.60-1.40 [facility] ([place]) Comment on above: Performed By: #### A DIFF, ANEU, PBNP, MG, GFR, CBC, BMP, PRO ####[address] [address] Electrolyte Balance 6.0 mEq/L Normal 4.0-15.0 [facility] ([place]) Comment on above: Performed By: #### A DIFF, ANEU, PBNP, MG, GFR, CBC, BMP, PRO ####[address] [address] Glucose [Mass/Vol] 212 mg/dL High 82-115 [facility] ([place]) Comment on above: Performed By: #### A DIFF, ANEU, PBNP, MG, GFR, CBC, BMP, PRO ####[address] [address] Potassium [Moles/Vol] 4.6 mmol/L Normal 3.5-5.0 [facility] ([place]) Comment on above: Performed By: #### A DIFF, ANEU, PBNP, MG, GFR, CBC, BMP, PRO ####[address] [address] Sodium [Moles/Vol] 134 mmol/L Low 136-145 [facility] ([place]) Comment on above: Performed By: #### A DIFF, ANEU, PBNP, MG, GFR, CBC, BMP, PRO ####[address] [address] Urea nitrogen [Mass/Vol] 96.0 mg/dL High 8.0-22.0 [facility] ([place]) Comment on above: Performed By: #### A DIFF, ANEU, PBNP, MG, GFR, CBC, BMP, PRO ####[place] [address] CBCon 06-10-2023 Erythrocyte distribution width (RBC) [Ratio] 15.4 % Normal 11.5-15.5 [facility] ([place]) Comment on above: Performed By: #### A DIFF, ANEU, PBNP, MG, GFR, CBC, BMP, PRO ####[place] [address] Hematocrit (Bld) [Volume fraction] 26.1 % Low 40.0-52.0 [facility] ([place]) Comment on above: Performed By: #### A DIFF, ANEU, PBNP, MG, GFR, CBC, BMP, PRO ####[place] [address] Hgb 8.7 G/dL Low 13.0-17.5 [facility] ([place]) Comment on above: Performed By: #### A DIFF, ANEU, PBNP, MG, GFR, CBC, BMP, PRO ####[place] [address] MCH (RBC) [Entitic mass] 28.8 pg Normal 27.0-33.0 [facility] ([place]) Comment on above: Performed By: #### A DIFF, ANEU, PBNP, MG, GFR, CBC, BMP, PRO ####[place] [address] MCHC 33.3 G/dL Normal 32.0-36.0 [facility] ([place]) Comment on above: Performed By: #### A DIFF, ANEU, PBNP, MG, GFR, CBC, BMP, PRO ####[place] [address] MCV (RBC) [Entitic vol] 86.6 fL Normal 81.0-100.0 [facility] ([place]) Comment on above: Performed By: #### A DIFF, ANEU, PBNP, MG, GFR, CBC, BMP, PRO ####[place] [address] Platelet 139 10 3/mcL Low 150-450 [facility] ([place]) Comment on above: Performed By: #### A DIFF, ANEU, PBNP, MG, GFR, CBC, BMP, PRO ####[place] [address] Platelet mean volume (Bld) [Entitic vol] 9.1 fL Normal 6.4-10.5 [facility] ([place]) Comment on above: Performed By: #### A DIFF, ANEU, PBNP, MG, GFR, CBC, BMP, PRO ####[place] [address] RBC 3.02 10 6/mcL Low 4.50-6.00 [facility] ([place]) Comment on above: Performed By: #### A DIFF, ANEU, PBNP, MG, GFR, CBC, BMP, PRO ####[place] [address] WBC 13.8 10 3/mcL High 4.5-10.8 [facility] ([place]) Comment on above: Performed By: #### A DIFF, ANEU, PBNP, MG, GFR, CBC, BMP, PRO ####[place] [address] LABORATORYOrdered By: Mary Veronica on 06-10-2023 Blood Glucose Testing Reason Routine (06/10/23 8:59 PM) [facility] Work Phone: LABORATORYOrdered By: SYSTEM SYSTEM on [...] [Vol rate/Area] 40 ml/min/1.73sqm Invalid Interpretation Code [facility] Comment on above: Interpretive Data: GFR Population [...] [Vol rate/Area] 33 ml/min/1.73sqm Invalid Interpretation Code [facility] Comment on above: Interpretive Data: GFR Population [...] 212 mg/dL High 82 - 115 mg/dL [facility] Hematocrit (Bld) [Volume fraction] 26.1 % Low [...] Comment on above: Interpretive Data: T rhonda [employer] (CHEST, 1992, 102:[id number]) recommended therapeutic range for oral anticoagulant therapy is: LOW RISK: Prophylaxis of venous thrombosis INR: 2.0-3.0 Treatment of pulmonary embolism 2.0-3.0 Prevention of systemic embolism 2.0-3.0 HIGH RISK: Mechanical prosthetic valves 2.5-3.5 MGon 06-10-2023 Magnesium [Mass/Vol] 2.5 mg/dL High 1.6-2.4 [facility] ([place]) Comment on above: Performed By: #### A DIFF, ANEU, PBNP, MG, GFR, CBC, BMP, PRO ####[facility] [place] [address] PBNPon 06-10-2023 Natriuretic peptide B (Bld) [Mass/Vol] 4528 pg/mL High 0-1800 [facility] ([place]) Comment on above: Result Comment: NT-p roBNP results of less than 300 pg/mL effectivelyrules out acute congestive heart failure with 99% negative predictive value. Performed By: #### A DIFF, ANEU, PBNP, MG, GFR, CBC, BMP, PRO ####[address] [address] PROon 06-10-2023 INR Coag (PPP) [Relative time] 1.1 {INR} Normal [facility] ([place]) Comment on above: Result Comment: [employer] (CHEST, 1991, [id number])recommended therapeutic range for oral anticoagulant therapy is:LOW RISK: Prophylaxis of venous thrombosis INR: 2.0-3.0 Treatment of pulmonary embolism 2.0-3.0 Prevention of systemic embolism 2.0-3.0HIGH RISK: Mechanical prosthetic valves 2.5-3.5 Performed By: #### A DIFF, ANEU, PBNP, MG, GFR, CBC, BMP, PRO ####[place] [address] PT Coag (PPP) [Time] 12.7 s Normal 9.0-14.2 [facility] ([place]) Comment on above: Result Comment: Effe ctive 09/24/07, Protime results may be affected by some antibiotics (i.e. Ciprofloxacin, Azithromycin, Bactrim) which may potentiate the action of oral anticoagulants, with further increases in Protime/INR. Performed By: #### A DIFF, ANEU, PBNP, MG, GFR, CBC, BMP, PRO ####[place] [address] .Auto Diffon 06-09-2023 Basophil, Absolute 0.0 10 3/mcL Normal 0.0-0.3 [facility] ([place]) Comment on above: Performed By: #### A DIFF, GFR, CMP, ANEU, CBC ####[place] [address] Basophils/100 WBC (Bld) 0.1 % Normal 0.0-2.5 [facility] ([place]) Comment on above: Performed By: #### A DIFF, GFR, CMP, ANEU, CBC ####[place] [address] Eosinophil, Absolute 0.0 10 3/mcL Normal 0.0-0.7 [facility] ([place]) Comment on above: Performed By: #### A DIFF, GFR, CMP, ANEU, CBC ####[address] [address] Eosinophils/100 WBC (Bld) 0.0 % Normal 0.0-6.0 [facility] ([place]) Comment on above: Performed By: #### A DIFF, GFR, CMP, ANEU, CBC ####[address] [address] Lymphocyte, Absolute 0.4 10 3/mcL Low 0.9-4.3 [facility] ([place] Comment on above: Performed By: #### A DIFF, GFR, CMP, ANEU, CBC ####[address] [address] Lymphocytes/100 WBC (Bld) 8.7 % Low 20.0-40.0 [facility] ([place]) Comment on above: Performed By: #### A DIFF, GFR, CMP, ANEU, CBC ####[address] [address] Monocyte, Absolute 0.0 10 3/mcL Low 0.1-1.4 [facility] ([place]) Comment on above: Performed By: #### A DIFF, GFR, CMP, ANEU, CBC ####[address] [address] Monocytes/100 WBC (Bld) 0.6 % Low 2.0-13.0 [facility] ([place]) Comment on above: Performed By: #### A DIFF, GFR, CMP, ANEU, CBC ####[address] [address] Neutrophils/100 WBC (Bld) 90.6 % High 50.0-75.0 [facility] ([place]) Comment on above: Performed By: #### A DIFF, GFR, CMP, ANEU, CBC ####[address] [address] Basophil, Absolute 0.0 10 3/mcL Normal 0.0-0.3 [facility] ([place]) Comment on above: Performed By: #### G FR, PBNP, MG, TROPHS, PHOS, ANEU, CBC, BMP, ADIFF ####[address] [address] Basophils/100 WBC (Bld) 0.2 % Normal 0.0-2.5 [facility] ([place]) Comment on above: Performed By: #### G FR, PBNP, MG, TROPHS, PHOS, ANEU, CBC, BMP, ADIFF ####[address] [address] Eosinophil, Absolute 0.0 10 3/mcL Normal 0.0-0.7 [facility] ([place]) Comment on above: Performed By: #### G FR, PBNP, MG, TROPHS, PHOS, ANEU, CBC, BMP, ADIFF ####[address] [address] Eosinophils/100 WBC (Bld) 0.1 % Normal 0.0-6.0 [facility] ([place]) Comment on above: Performed By: #### G FR, PBNP, MG, TROPHS, PHOS, ANEU, CBC, BMP, ADIFF ####[address] [address] Lymphocyte, Absolute 0.4 10 3/mcL Low 0.9-4.3 [facility] ([place]) Comment on above: Performed By: #### G FR, PBNP, MG, TROPHS, PHOS, ANEU, CBC, BMP, ADIFF ####[address] [address] Lymphocytes/100 WBC (Bld) 8.5 % Low 20.0-40.0 [facility] ([place]) Comment on above: Performed By: #### G FR, PBNP, MG, TROPHS, PHOS, ANEU, CBC, BMP, ADIFF ####[address] [address] Monocyte, Absolute 0.0 10 3/mcL Low 0.1-1.4 [facility] ([place] Comment on above: Performed By: #### G FR, PBNP, MG, TROPHS, PHOS, ANEU, CBC, BMP, ADIFF ####[address] [address] Monocytes/100 WBC (Bld) 0.7 % Low 2.0-13.0 [facility] ([place]) Comment on above: Performed By: #### G FR, PBNP, MG, TROPHS, PHOS, ANEU, CBC, BMP, ADIFF ####[address] [address] Neutrophils/100 WBC (Bld) 90.5 % High 50.0-75.0 [facility] ([place]) Comment on above: Performed By: #### G FR, PBNP, MG, TROPHS, PHOS, ANEU, CBC, BMP, ADIFF ####[address] [address] .GFRon 06-09-2023 GFR Non- 34 ml/min/1.73sqm Normal [facility] ([place] Comment on above: Result Comment: GFR Population [...] #### A DIFF, GFR, CMP, ANEU, CBC ####[address] [address] GFR 41 ml/min/1.73sqm Normal [facility] ([place] Comment on above: Result Comment: GFR Population [...] #### A DIFF, GFR, CMP, ANEU, CBC ####[place] [address] GFR Non- 33 ml/min/1.73sqm Normal [facility] ([place] Comment on above: Result Comment: GFR Population [...] MG, TROPHS, PHOS, ANEU, CBC, BMP, ADIFF ####[place] [address] GFR 40 ml/min/1.73sqm [facility] ([place]) Comment on above: Result Comment: GFR Population [...] MG, TROPHS, PHOS, ANEU, CBC, BMP, ADIFF ####[address] [address] .NEUABSon 06-09-2023 Neutrophil, Absolute 4.1 10 3/mcL Normal 2.3-8.1 [facility] ([place] Comment on above: Performed By: #### A DIFF, GFR, CMP, ANEU, CBC ####[place] [address] Neutrophil, Absolute 4.3 10 3/mcL Normal 2.3-8.1 [facility] ([place] Comment on above: Performed By: #### G FR, PBNP, MG, TROPHS, PHOS, ANEU, CBC, BMP, ADIFF ####[place] [address] ABO/Rh (Gel)on 06-09-2023 ABO/Rh Interp Negative Invalid Interpretation Code [facility] ([place] Comment on above: Performed By: #### A BSGEL, ABOGEL ####[place] [address] ABS (Gel)on 06-09-2023 ABSC Interp (Gel) Negative Normal [facility] ([place] Comment on above: Performed By: #### A BSGEL, ABOGEL ####[place] [address] BMPon 06-09-2023 BUN/Creatinine Ratio 39.5 ratio High 10.0-22.0 [facility] ([place] Comment on above: Performed By: #### G FR, PBNP, MG, TROPHS, PHOS, ANEU, CBC, BMP, ADIFF ####[place] [address] Calcium [Mass/Vol] 8.6 mg/dL Low 8.7-10.4 [facility] ([place] Comment on above: Performed By: #### G FR, PBNP, MG, TROPHS, PHOS, ANEU, CBC, BMP, ADIFF ####[place] [address] Chloride [Moles/Vol] 107 mmol/L Normal 98-110 [facility] ([place] Comment on above: Performed By: #### G FR, PBNP, MG, TROPHS, PHOS, ANEU, CBC, BMP, ADIFF ####[address] [address] CO2 [Moles/Vol] 23 mmol/L Normal 22-32 [facility] ([place] Comment on above: Performed By: #### G FR, PBNP, MG, TROPHS, PHOS, ANEU, CBC, BMP, ADIFF ####[address] [address] Creatinine [Mass/Vol] 1.95 mg/dL High 0.60-1.40 [facility] ([place]) Comment on above: Performed By: #### G FR, PBNP, MG, TROPHS, PHOS, ANEU, CBC, BMP, ADIFF ####[place] [address] Electrolyte Balance 9.0 mEq/L Normal 4.0-15.0 [facility] ([place] Comment on above: Performed By: #### G FR, PBNP, MG, TROPHS, PHOS, ANEU, CBC, BMP, ADIFF ####[address] [address] Glucose [Mass/Vol] 366 mg/dL High 82-115 [facility] ([place] Comment on above: Performed By: #### G FR, PBNP, MG, TROPHS, PHOS, ANEU, CBC, BMP, ADIFF ####[address] [address] Potassium [Moles/Vol] 4.7 mmol/L Normal 3.5-5.0 [facility] ([place]) Comment on above: Performed By: #### G FR, PBNP, MG, TROPHS, PHOS, ANEU, CBC, BMP, ADIFF ####[address] [address] Sodium [Moles/Vol] 139 mmol/L Normal 136-145 [facility] ([place] Comment on above: Performed By: #### G FR, PBNP, MG, TROPHS, PHOS, ANEU, CBC, BMP, ADIFF ####[address] [address] Urea nitrogen [Mass/Vol] 77.0 mg/dL High 8.0-22.0 [facility] ([place]) Comment on above: Performed By: #### G FR, PBNP, MG, TROPHS, PHOS, ANEU, CBC, BMP, ADIFF ####[place] [address] CBCon 06-09-2023 Erythrocyte distribution width (RBC) [Ratio] 15.7 % High 11.5-15.5 [facility] ([place] Comment on above: Performed By: #### A DIFF, GFR, CMP, ANEU, CBC ####[place] [address] Hematocrit (Bld) [Volume fraction] 20.8 % Low 40.0-52.0 [facility] ([place] Comment on above: Performed By: #### A DIFF, GFR, CMP, ANEU, CBC ####[place] [address] Hgb 7.1 G/dL Low 13.0-17.5 [facility] ([place] Comment on above: Performed By: #### A DIFF, GFR, CMP, ANEU, CBC ####[place] [address] MCH (RBC) [Entitic mass] 29.1 pg Normal 27.0-33.0 [facility] ([place] Comment on above: Performed By: #### A DIFF, GFR, CMP, ANEU, CBC ####[place] [address] MCHC 34.1 G/dL Normal 32.0-36.0 [facility] ([place] Comment on above: Performed By: #### A DIFF, GFR, CMP, ANEU, CBC ####[place] [address] MCV (RBC) [Entitic vol] 85.3 fL Normal 81.0-100.0 [facility] ([place]) Comment on above: Performed By: #### A DIFF, GFR, CMP, ANEU, CBC ####[place] [address] Platelet 108 10 3/mcL Low 150-450 [facility] ([place] Comment on above: Performed By: #### A DIFF, GFR, CMP, ANEU, CBC ####[place] [address] Platelet mean volume (Bld) [Entitic vol] 9.0 fL Normal 6.4-10.5 [facility] ([place] Comment on above: Performed By: #### A DIFF, GFR, CMP, ANEU, CBC ####[place] [address] RBC 2.43 10 6/mcL Low 4.50-6.00 [facility] ([place] Comment on above: Performed By: #### A DIFF, GFR, CMP, ANEU, CBC ####[place] [address] WBC 4.5 10 3/mcL Normal 4.5-10.8 [facility] ([place] Comment on above: Performed By: #### A DIFF, GFR, CMP, ANEU, CBC ####[place] [address] Erythrocyte distribution width (RBC) [Ratio] 15.8 % High 11.5-15.5 [facility] ([place] Comment on above: Performed By: #### G FR, PBNP, MG, TROPHS, PHOS, ANEU, CBC, BMP, ADIFF ####[place] [address] Hematocrit (Bld) [Volume fraction] 21.5 % Low 40.0-52.0 [facility] ([place] Comment on above: Performed By: #### G FR, PBNP, MG, TROPHS, PHOS, ANEU, CBC, BMP, ADIFF ####[place] [address] Hgb 7.2 G/dL Low 13.0-17.5 [facility] ([place] Comment on above: Performed By: #### G FR, PBNP, MG, TROPHS, PHOS, ANEU, CBC, BMP, ADIFF ####[id number] [place] [address] MCH (RBC) [Entitic mass] 28.9 pg Normal 27.0-33.0 [facility] ([place] Comment on above: Performed By: #### G FR, PBNP, MG, TROPHS, PHOS, ANEU, CBC, BMP, ADIFF ####[place] [address] MCHC 33.7 G/dL Normal 32.0-36.0 [facility] ([place] Comment on above: Performed By: #### G FR, PBNP, MG, TROPHS, PHOS, ANEU, CBC, BMP, ADIFF ####[place] [address] MCV (RBC) [Entitic vol] 85.8 fL Normal 81.0-100.0 [facility] ([place] Comment on above: Performed By: #### G FR, PBNP, MG, TROPHS, PHOS, ANEU, CBC, BMP, ADIFF ####[place] [address] Platelet 110 10 3/mcL Low 150-450 [facility] ([place] Comment on above: Performed By: #### G FR, PBNP, MG, TROPHS, PHOS, ANEU, CBC, BMP, ADIFF ####[place] [address] Platelet mean volume (Bld) [Entitic vol] 8.8 fL Normal 6.4-10.5 [facility] ([place] Comment on above: Performed By: #### G FR, PBNP, MG, TROPHS, PHOS, ANEU, CBC, BMP, ADIFF ####[place] [address] RBC 2.50 10 6/mcL Low 4.50-6.00 [facility] ([place] Comment on above: Performed By: #### G FR, PBNP, MG, TROPHS, PHOS, ANEU, CBC, BMP, ADIFF ####[place] [address] WBC 4.7 10 3/mcL Normal 4.5-10.8 [facility] ([place] Comment on above: Performed By: #### G FR, PBNP, MG, TROPHS, PHOS, ANEU, CBC, BMP, ADIFF ####[place] [address] CMPon 06-09-2023 Albumin Level 2.6 G/dL Low 3.2-4.8 [facility] ([place] Comment on above: Performed By: #### A DIFF, GFR, CMP, ANEU, CBC ####[place] [address] Albumin/Globulin [Mass ratio] 0.8 {ratio} Low 0.9-1.6 [facility] ([place] Comment on above: Performed By: #### A DIFF, GFR, CMP, ANEU, CBC ####[place] [address] ALP [Catalytic activity/Vol] 61 U/L Normal 38-126 [facility] ([place] Comment on above: Performed By: #### A DIFF, GFR, CMP, ANEU, CBC ####[place] [address] ALT [Catalytic activity/Vol] 16 U/L Normal 12-55 [facility] ([place] Comment on above: Performed By: #### A DIFF, GFR, CMP, ANEU, CBC ####[place] [address] AST [Catalytic activity/Vol] 14 U/L Normal 8-34 [facility] ([place] Comment on above: Performed By: #### A DIFF, GFR, CMP, ANEU, CBC ####[place] [address] Bili Total 0.40 mg/dL Normal 0.20-1.20 [facility] ([place] Comment on above: Result Comment: Use of this assay is not recommended for patients undergoing treatment with eltrombopag due to the potential for falsely elevated results. Performed By: #### A DIFF, GFR, CMP, ANEU, CBC ####[place] [address] BUN/Creatinine Ratio 41.1 ratio High 10.0-22.0 [facility] ([place]) Comment on above: Performed By: #### A DIFF, GFR, CMP, ANEU, CBC ####[address] [address] Calcium [Mass/Vol] 8.8 mg/dL Normal 8.7-10.4 [facility] ([place]) Comment on above: Performed By: #### A DIFF, GFR, CMP, ANEU, CBC ####[address] [address] Chloride [Moles/Vol] 104 mmol/L Normal 98-110 [facility] ([place]) Comment on above: Performed By: #### A DIFF, GFR, CMP, ANEU, CBC ####[address] [address] CO2 [Moles/Vol] 28 mmol/L Normal 22-32 [facility] ([place]) Comment on above: Performed By: #### A DIFF, GFR, CMP, ANEU, CBC ####[address] [address] Creatinine [Mass/Vol] 1.92 mg/dL High 0.60-1.40 [facility] ([place]) Comment on above: Performed By: #### A DIFF, GFR, CMP, ANEU, CBC ####[place] [address] Electrolyte Balance 9.0 mEq/L Normal 4.0-15.0 [facility] ([place]) Comment on above: Performed By: #### A DIFF, GFR, CMP, ANEU, CBC ####[address] [address] Globulin 3.3 G/dL Normal 1.5-3.8 [facility] ([place] Comment on above: Performed By: #### A DIFF, GFR, CMP, ANEU, CBC ####[address] [address] Glucose [Mass/Vol] 323 mg/dL High 82-115 [facility] ([place]) Comment on above: Performed By: #### A DIFF, GFR, CMP, ANEU, CBC ####[place] [address] Potassium [Moles/Vol] 4.5 mmol/L Normal 3.5-5.0 [facility] ([place]) Comment on above: Performed By: #### A DIFF, GFR, CMP, ANEU, CBC ####[address] [address] Sodium [Moles/Vol] 141 mmol/L Normal 136-145 [facility] ([place]) Comment on above: Performed By: #### A DIFF, GFR, CMP, ANEU, CBC ####[place] [address] Total Protein 5.9 G/dL Normal 5.7-8.2 [facility] ([place] Comment on above: Result Comment: No te - New Reference Range in effect 19 Performed By: #### A DIFF, GFR, CMP, ANEU, CBC ####[place] [address] Urea nitrogen [Mass/Vol] 79.0 mg/dL High 8.0-22.0 [facility] [place] Comment on above: Performed By: #### A DIFF, GFR, CMP, ANEU, CBC ####[address] [address] HHon 06-09-2023 Hematocrit (Bld) [Volume fraction] 24.5 % Low 40.0-52.0 [facility] ([place] Comment on above: Performed By: #### H H ####[address] [address] Hgb 8.4 G/dL Low 13.0-17.5 [facility] [place] Comment on above: Performed By: #### H H ####[address] [address] LABORATORYOrdered By: Francisco Brown on 06-09-2023 Blood Glucose Testing Reason Routine (06/09/23 9:08 PM) [facility] Work Phone: LABORATORYOrdered By: Delia Mueller on 06-09-2023 Blood Glucose Interventions Administered agent to decrease blood sugar (06/09/23 4:35 PM) [facility] Work Phone: Blood Glucose Testing Reason Routine (06/09/23 4:35 PM) [facility] Work Phone: Blood Glucose Interventions Administered agent to decrease blood sugar (06/09/23 12:12 PM) [facility] Work Phone: Blood Glucose Interventions Administered agent to decrease blood sugar (06/09/23 8:10 AM) [facility] Work Phone: LABORATORYOrdered By: SYSTEM SYSTEM on [...] [Vol rate/Area] 34 ml/min/1.73sqm Invalid Interpretation Code [facility] Comment on above: Interpretive Data: GFR Population [...] ng/L Male: 0-54 ng/L Testing performed on [employer] IM analyzer using direct chemiluminescent technology. LABORATORYOrdered [...] 06-09-2023 Magnesium [Mass/Vol] 1.5 mg/dL Low 1.6-2.4 [facility] ([place]) Comment on above: Performed By: #### G FR, PBNP, MG, TROPHS, PHOS, ANEU, CBC, BMP, ADIFF ####[place] [address] PBNPon 06-09-2023 Natriuretic peptide B (Bld) [Mass/Vol] 2824 pg/mL High 0-1800 [facility] ([place] Comment on above: Result Comment: NT-p roBNP results of less than 300 pg/mL effectivelyrules out acute congestive heart failure with 99% negative predictive value. Performed By: #### G FR, PBNP, MG, TROPHS, PHOS, ANEU, CBC, BMP, ADIFF ####[place] [address] PHOSon 06-09-2023 Phosphate [Mass/Vol] 2.6 mg/dL Normal 2.4-5.1 [facility] ([place]) Comment on above: Result Comment: No te - New Reference Range in effect 19 Performed By: #### G FR, PBNP, MG, TROPHS, PHOS, ANEU, CBC, BMP, ADIFF ####[place] [address] RBC (Product)on 06-09-2023 RBC Product Ready RBC Ready for Pickup Normal [facility] ([place] Comment on above: Performed By: #### R BCP ####[address] 06-09-2023 High Sensitivity Troponin I 23 ng/L Normal 0-54 [facility] ([place] Comment on above: Result Comment: High Sensitive Troponin I Reference Ranges:Female: 0-34 ng/LMale: 0-54 ng/LTesting performed on [employer] IM analyzer using direct chemiluminescent technology. Performed By: #### G FR, PBNP, MG, TROPHS, PHOS, ANEU, CBC, BMP, ADIFF ####[place] [address] XR CHEST 1 VIEWon 06-09-2023 XR CHEST 1 VIEW Normal [facility] ([place]) .Auto Diffon 06-08-2023 Basophil, Absolute 0.0 10 3/mcL Normal 0.0-0.2 [facility] ([place]) Comment on above: Performed By: #### M DW, TROPHS, ANEU, CBC, ADIFF ####[address] [address] Basophils/100 WBC (Bld) 0.7 % Normal 0.0-2.5 [facility] ([place]) Comment on above: Performed By: #### M DW, TROPHS, ANEU, CBC, ADIFF ####[address] [place], [place] [address] Eosinophil, Absolute 0.1 10 3/mcL Normal 0.0-0.4 [facility] ([place]) Comment on above: Performed By: #### M DW, TROPHS, ANEU, CBC, ADIFF ####[address] [place], [place] [address] Eosinophils/100 WBC (Bld) 2.2 % Normal 0.0-7.0 [facility] ([place]) Comment on above: Performed By: #### M DW, TROPHS, ANEU, CBC, ADIFF ####[address] [place], [place] [address] Lymphocyte, Absolute 1.0 10 3/mcL Normal 0.8-3.9 [facility] ([place]) Comment on above: Performed By: #### M DW, TROPHS, ANEU, CBC, ADIFF ####[address] [place], [place] [address] Lymphocytes/100 WBC (Bld) 15.6 % Normal 10.0-50.0 [facility] ([place]) Comment on above: Performed By: #### M DW, TROPHS, ANEU, CBC, ADIFF ####[address] [place], [place] [address] Monocyte, Absolute 0.4 10 3/mcL Normal 0.2-1.0 [facility] ([place] Comment on above: Performed By: #### M DW, TROPHS, ANEU, CBC, ADIFF ####[address] [place], [place] [address] Monocytes/100 WBC (Bld) 5.9 % Normal 1.7-13.0 [facility] ([place]) Comment on above: Performed By: #### M DW, TROPHS, ANEU, CBC, ADIFF ####[address] [place], [place] [address] Neutrophils/100 WBC (Bld) 75.6 % Normal 37.0-80.0 [facility] ([place]) Comment on above: Performed By: #### M DW, TROPHS, ANEU, CBC, ADIFF ####[address] [place], [place] [address] Basophil, Absolute 0.0 10 3/mcL Normal 0.0-0.2 [facility] ([place]) Comment on above: Performed By: #### C BC, PBNP, CMP, ADIFF, GFR, ANEU ####[address] [place], [place] [address] Basophils/100 WBC (Bld) 0.5 % Normal 0.0-2.5 [facility] ([place]) Comment on above: Performed By: #### C BC, PBNP, CMP, ADIFF, GFR, ANEU ####[address] [place], [place] [address] Eosinophil, Absolute 0.2 10 3/mcL Normal 0.0-0.4 [facility] ([place]) Comment on above: Performed By: #### C BC, PBNP, CMP, ADIFF, GFR, ANEU ####[address] [place], [place] [address] Eosinophils/100 WBC (Bld) 2.3 % Normal 0.0-7.0 [facility] ([place]) Comment on above: Performed By: #### C BC, PBNP, CMP, ADIFF, GFR, ANEU ####[address] [place], [place] [address] Lymphocyte, Absolute 1.0 10 3/mcL Normal 0.8-3.9 [facility] ([place]) Comment on above: Performed By: #### C BC, PBNP, CMP, ADIFF, GFR, ANEU ####[address] [place], [place] [address] Lymphocytes/100 WBC (Bld) 15.5 % Normal 10.0-50.0 [facility] ([place]) Comment on above: Performed By: #### C BC, PBNP, CMP, ADIFF, GFR, ANEU ####[address] [place], [place] [address] Monocyte, Absolute 0.4 10 3/mcL Normal 0.2-1.0 [facility] ([place] Comment on above: Performed By: #### C BC, PBNP, CMP, ADIFF, GFR, ANEU ####[address] [place], [place] [address] Monocytes/100 WBC (Bld) 6.6 % Normal 1.7-13.0 [facility] ([place]) Comment on above: Performed By: #### C BC, PBNP, CMP, ADIFF, GFR, ANEU ####[address] [place], [place] [address] Neutrophils/100 WBC (Bld) 75.1 % Normal 37.0-80.0 [facility] ([place] Comment on above: Performed By: #### C BC, PBNP, CMP, ADIFF, GFR, ANEU ####[address] [place], [place] [address] .GFRon 06-08-2023 GFR Non- 28 ml/min/1.73sqm Normal [facility] ([place] Comment on above: Result Comment: GFR Population [...] BC, PBNP, CMP, ADIFF, GFR, ANEU ####[address] [place], [place] [address] GFR 34 ml/min/1.73sqm Normal [facility] ([place] Comment on above: Result Comment: GFR Population [...] PBNP, CMP, ADIFF, GFR, ANEU ####[address] [place], [place] [address] .MDWon 06-08-2023 Monocyte Distribution Width 19.65 Normal 0.00-20.00 [facility] ([place]) Comment on above: Result Comment: For ED adult patients suspected of sepsis, MDW<=20.0 does not rule out sepsis or risk of sepsis Performed By: #### M DW, TROPHS, ANEU, CBC, ADIFF ####[address] [place], [place] [address] .NEUABSon 06-08-2023 Neutrophil, Absolute 5.0 10 3/mcL Normal 2.9-6.2 [facility] ([place]) Comment on above: Performed By: #### M DW, TROPHS, ANEU, CBC, ADIFF ####[address] [place], [place] [address] Neutrophil, Absolute 5.1 10 3/mcL Normal 2.9-6.2 [facility] ([place] Comment on above: Performed By: #### C BC, PBNP, CMP, ADIFF, GFR, ANEU ####[address] [place], [place] [address] ABGon 06-08-2023 Base excess Calc (Bld) [Moles/Vol] 2.0 mmol/L Normal -2.4-2.3 [facility] ([place] Comment on above: Order Comment: On ro om air Performed By: #### A BG ####[address] [place], [place] [address] CO2 [Moles/Vol] 28 mmol/L High 19-24 [facility] ([place] Comment on above: Order Comment: On ro om air Performed By: #### A BG ####[address] [place], [place] [address] HCO3 (Bld) [Moles/Vol] 26.7 mmol/L High 22.0-26.0 [facility] ([place]) Comment on above: Order Comment: On ro om air Performed By: #### A BG ####[address] [place], [place] [address] Oxygen (Bld) [Partial pressure] 147.0 mm[Hg] High 80.0-100.0 [facility] ([place] Comment on above: Order Comment: On ro om air Performed By: #### A BG ####[address] [place], [place] [address] Oxygen saturation in Blood 99 % High 95-98 [facility] ([place] Comment on above: Order Comment: On ro om air Performed By: #### A BG ####[address] [place], [place] [address] pCO2 40.4 mmHg Normal 35.0-45.0 [facility] ([place] Comment on above: Order Comment: On ro om air Performed By: #### A BG ####[address] [place], [place] [address] pH (Bld) 7.43 [pH] Normal 7.35-7.45 [facility] ([place] Comment on above: Order Comment: On ro om air Performed By: #### A BG ####[address] [place], [place] [address] CBCon 06-08-2023 Erythrocyte distribution width (RBC) [Ratio] 15.6 % High 11.5-14.5 [facility] ([place] Comment on above: Performed By: #### M DW, TROPHS, ANEU, CBC, ADIFF ####[address] [place], [place] [address] Hematocrit (Bld) [Volume fraction] 22.5 % Low 42.0-52.0 [facility] ([place] Comment on above: Performed By: #### M TIFFANY TROPHS, ANEU, CBC, ADIFF ####[address] [place], [place] [address] Hgb 7.6 G/dL Low 14.0-18.0 [facility] ([place] Comment on above: Performed By: #### M TIFFANY TROPHS, ANEU, CBC, ADIFF ####[address] [place], [place] [address] MCH (RBC) [Entitic mass] 29.0 pg Normal 27.0-31.2 [facility] ([place] Comment on above: Performed By: #### M TIFFANY TROPHS, ANEU, CBC, ADIFF ####[address] [place], [place] [address] MCHC 33.6 G/dL Normal 31.8-35.4 [facility] ([place] Comment on above: Performed By: #### Elidia ALELN TROPHS, ANEU, CBC, ADIFF ####[address] [place], [place] [address] MCV (RBC) [Entitic vol] 86.3 fL Normal 80.0-94.0 [facility] ([place] Comment on above: Performed By: #### M TIFFANY TROPHS, ANEU, CBC, ADIFF ####[address] [place], [place] [address] Platelet 140 10 3/mcL Normal 130-400 [facility] ([place] Comment on above: Performed By: #### M TIFFANY TROPHS, ANEU, CBC, ADIFF ####[address] [place], [place] [address] Platelet mean volume (Bld) [Entitic vol] 8.9 fL Normal 7.4-10.4 [facility] ([place] Comment on above: Performed By: #### Elidia ALLEN TROPHS, ANEU, CBC, ADIFF ####[address] [place], [place] [address] RBC 2.60 10 6/mcL Low 4.04-6.13 [facility] ([place] Comment on above: Performed By: #### M DW, TROPHS, ANEU, CBC, ADIFF ####[address] [place], [place] [address] WBC 6.6 10 3/mcL Normal 4.6-10.8 [facility] ([place] Comment on above: Performed By: #### M DW, TROPHS, ANEU, CBC, ADIFF ####[address] [place], [place] [address] Erythrocyte distribution width (RBC) [Ratio] 15.3 % High 11.5-14.5 [facility] ([place] Comment on above: Performed By: #### C BC, PBNP, CMP, ADIFF, GFR, ANEU ####[address] [place], [place] [address] Hematocrit (Bld) [Volume fraction] 23.0 % Low 42.0-52.0 [facility] [place] Comment on above: Performed By: #### C BC, PBNP, CMP, ADIFF, GFR, ANEU ####[address] [place], [place] [address] Hgb 7.7 G/dL Low 14.0-18.0 [facility] [place] Comment on above: Performed By: #### C BC, PBNP, CMP, ADIFF, GFR, ANEU ####[address] [place], [place] [address] MCH (RBC) [Entitic mass] 29.0 pg Normal 27.0-31.2 [facility] [place] Comment on above: Performed By: #### C BC, PBNP, CMP, ADIFF, GFR, ANEU ####[address] [place], [place] [address] MCHC 33.5 G/dL Normal 31.8-35.4 [facility] ([place] Comment on above: Performed By: #### C BC, PBNP, CMP, ADIFF, GFR, ANEU ####[address] [place], [place] [address] MCV (RBC) [Entitic vol] 86.4 fL Normal 80.0-94.0 [facility] ([place] Comment on above: Performed By: #### C BC, PBNP, CMP, ADIFF, GFR, ANEU ####[address] [place], [place] [address] Platelet 141 10 3/mcL Normal 130-400 [facility] ([place] Comment on above: Performed By: #### C BC, PBNP, CMP, ADIFF, GFR, ANEU ####[address] [place], [place] [address] Platelet mean volume (Bld) [Entitic vol] 8.8 fL Normal 7.4-10.4 [facility] ([place] Comment on above: Performed By: #### C BC, PBNP, CMP, ADIFF, GFR, ANEU ####[address] [place], [place] [address] RBC 2.66 10 6/mcL Low 4.04-6.13 [facility] ([place] Comment on above: Performed By: #### C BC, PBNP, CMP, ADIFF, GFR, ANEU ####[address] [place], [place] [address] WBC 6.7 10 3/mcL Normal 4.6-10.8 [facility] ([place] Comment on above: Performed By: #### C BC, PBNP, CMP, ADIFF, GFR, ANEU ####[address] [place], [place] [address] CMPon 06-08-2023 Albumin Level 2.7 G/dL Low 3.4-4.8 [facility] ([place] Comment on above: Performed By: #### C BC, PBNP, CMP, ADIFF, GFR, ANEU ####[address] [place], [place] [address] Albumin/Globulin [Mass ratio] 0.8 {ratio} Low 1.1-2.5 [facility] ([place] Comment on above: Performed By: #### C BC, PBNP, CMP, ADIFF, GFR, ANEU ####[address] [place], [place] [address] ALP [Catalytic activity/Vol] 70 U/L Normal 40-135 [facility] ([place] Comment on above: Performed By: #### C BC, PBNP, CMP, ADIFF, GFR, ANEU ####[address] [place], [place] [address] ALT [Catalytic activity/Vol] 26 U/L Normal 16-63 [facility] ([place] Comment on above: Performed By: #### C BC, PBNP, CMP, ADIFF, GFR, ANEU ####[address] [place], [place] [address] AST [Catalytic activity/Vol] 16 U/L Normal 10-40 [facility] ([place] Comment on above: Performed By: #### C BC, PBNP, CMP, ADIFF, GFR, ANEU ####[address] [place], [place] [address] Bili Total 0.3 mg/dL Normal 0.2-1.0 [facility] ([place] Comment on above: Result Comment: Use of this assay is not recommended for patients undergoing treatment with eltrombopag due to the potential for falsely elevated results. Performed By: #### C BC, PBNP, CMP, ADIFF, GFR, ANEU ####[address] [place], [place] [address] BUN/Creatinine Ratio 34 ratio High 7-27 [facility] ([place]) Comment on above: Performed By: #### C BC, PBNP, CMP, ADIFF, GFR, ANEU ####[address] [place], [place] [address] Calcium [Mass/Vol] 9.0 mg/dL Normal 8.4-10.2 [facility] ([place] Comment on above: Performed By: #### C BC, PBNP, CMP, ADIFF, GFR, ANEU ####[address] [place], [place] [address] Chloride [Moles/Vol] 108 mmol/L High 98-107 [facility] ([place] Comment on above: Performed By: #### C BC, PBNP, CMP, ADIFF, GFR, ANEU ####[address] [place], [place] [address] CO2 [Moles/Vol] 29 mmol/L Normal 23-31 [facility] ([place] Comment on above: Performed By: #### C BC, PBNP, CMP, ADIFF, GFR, ANEU ####[address] [place], [place] [address] Creatinine [Mass/Vol] 2.24 mg/dL High 0.70-1.30 [facility] ([place]) Comment on above: Performed By: #### C BC, PBNP, CMP, ADIFF, GFR, ANEU ####[address] [place], [place] [address] Electrolyte Balance 8.0 mEq/L Normal 4.0-15.0 [facility] ([place]) Comment on above: Performed By: #### C BC, PBNP, CMP, ADIFF, GFR, ANEU ####[address] [place], [place] [address] Globulin 3.5 G/dL Normal [facility] ([place] Comment on above: Performed By: #### C BC, PBNP, CMP, ADIFF, GFR, ANEU ####[address] [place], [place] [address] Glucose [Mass/Vol] 251 mg/dL High 83-110 [facility] ([place] Comment on above: Performed By: #### C BC, PBNP, CMP, ADIFF, GFR, ANEU ####[address] [place], [place] [address] Potassium [Moles/Vol] 5.0 mmol/L Normal 3.5-5.1 [facility] ([place]) Comment on above: Performed By: #### C BC, PBNP, CMP, ADIFF, GFR, ANEU ####[address] [place], [place] [address] Sodium [Moles/Vol] 145 mmol/L Normal 136-145 [facility] ([place] Comment on above: Performed By: #### C BC, PBNP, CMP, ADIFF, GFR, ANEU ####[address] [place], [place] [address] Total Protein 6.2 G/dL Low 6.4-8.2 [facility] ([place] Comment on above: Performed By: #### C BC, PBNP, CMP, ADIFF, GFR, ANEU ####[address] [place], [place] [address] Urea nitrogen [Mass/Vol] 76 mg/dL High 7-18 [facility] ([place] Comment on above: Performed By: #### C BC, PBNP, CMP, ADIFF, GFR, ANEU ####[address] [place], [place] [address] LABORATORYOrdered By: Javier Vega on 06-08-2023 Base [...] ng/L Male: 0-76 ng/L Testing performed on [employer] using a homogeneous sandwich chemiluminescent immunoassay based on [employer] technology. Basophil, Absolute 0.0 103/mcL Normal 0.0 [...] ng/L Male: 0-76 ng/L Testing performed on [employer] using a homogeneous sandwich chemiluminescent immunoassay based on [employer] technology. WBC (Bld) [#/Vol] 6.6 103/mcL Normal [...] B (Bld) [Mass/Vol] 2501 pg/mL High 0-450 [facility] ([place] Comment on above: Result Comment: NT-p roBNP results of less than 300 pg/mL effectivelyrules out acute congestive heart failure with 99% negative predictive value. Performed By: #### C BC, PBNP, CMP, ADIFF, GFR, ANEU ####[address] [place], [place] [address] TROPHSon 06-08-2023 High Sensitivity Troponin I 30 ng/L Normal 0-76 [facility] ([place] Comment on above: Result Comment: High Sensitive Troponin I Reference Ranges:Female: 0-51 ng/LMale: 0-76 ng/LTesting performed on [employer] using a homogeneous sandwich chemiluminescent immunoassay based on [employer] technology. Performed By: #### T ROP ####[address] [place], [place] [address] High Sensitivity Troponin I 30 ng/L Normal 0-76 [facility] ([place] Comment on above: Result Comment: High Sensitive Troponin I Reference Ranges:Female: 0-51 ng/LMale: 0-76 ng/LTesting performed on [employer] using a homogeneous sandwich chemiluminescent immunoassay based on [employer] technology. Performed By: #### M DW, TROPHS, ANEU, CBC, ADIFF ####[address] [place], [place] [address] XR CHEST 1 VIEWon 06-08-2023 XR CHEST 1 VIEW Normal [facility] ([place] .Auto Diffon 05-25-2023 Basophil, Absolute 0.0 10 3/mcL Normal 0.0-0.2 [facility] ([place]) Comment on above: Performed By: #### G FR, PBNP, CBC, ADIFF, TROPHS, BMP, MDW, ANEU ####[address] [place], [place] [address] Basophils/100 WBC (Bld) 0.4 % Normal 0.0-2.5 [facility] ([place]) Comment on above: Performed By: #### G FR, PBNP, CBC, ADIFF, TROPHS, BMP, MDW, ANEU ####[address] [place], [place] [address] Eosinophil, Absolute 0.2 10 3/mcL Normal 0.0-0.4 [facility] ([place] Comment on above: Performed By: #### G FR, PBNP, CBC, ADIFF, TROPHS, BMP, MDW, ANEU ####[address] [place], [place] [address] Eosinophils/100 WBC (Bld) 3.5 % Normal 0.0-7.0 [facility] ([place]) Comment on above: Performed By: #### G FR, PBNP, CBC, ADIFF, TROPHS, BMP, MDW, ANEU ####[address] [place], [place] [address] Lymphocyte, Absolute 0.8 10 3/mcL Normal 0.8-3.9 [facility] ([place]) Comment on above: Performed By: #### G FR, PBNP, CBC, ADIFF, TROPHS, BMP, MDW, ANEU ####[address] [place], [place] [address] Lymphocytes/100 WBC (Bld) 11.4 % Normal 10.0-50.0 [facility] ([place]) Comment on above: Performed By: #### G FR, PBNP, CBC, ADIFF, TROPHS, BMP, MDW, ANEU ####[address] [place], [place] [address] Monocyte, Absolute 0.4 10 3/mcL Normal 0.2-1.0 [facility] ([place]) Comment on above: Performed By: #### G FR, PBNP, CBC, ADIFF, TROPHS, BMP, MDW, ANEU ####[address] [place], [place] [address] Monocytes/100 WBC (Bld) 5.9 % Normal 1.7-13.0 [facility] ([place]) Comment on above: Performed By: #### G FR, PBNP, CBC, ADIFF, TROPHS, BMP, MDW, ANEU ####[address] [place], [place] [address] Neutrophils/100 WBC (Bld) 78.8 % Normal 37.0-80.0 [facility] ([place] Comment on above: Performed By: #### G FR, PBNP, CBC, JEFERSON, SNEHA, JAVIER, RAJAT, ANEU ####[address] [place], [place] [address] .GFRon 05-25-2023 GFR 45 ml/min/1.73sqm Normal [facility] ([place] Comment on above: Result Comment: GFR Population [...] CBC, ADDEE, TROPHNia, JAVIER, RAJAT, ANEU ####[address] [place], [place] [address] GFR Non- 37 ml/min/1.73sqm Normal [facility] ([place] Comment on above: Result Comment: GFR Population [...] ADIFF, TROPHS, BMP, MDW, ANEU ####[address] [place], [place] [address] .MDWon 05-25-2023 Monocyte Distribution Width 15.89 Normal 0.00-20.00 [facility] ([place] Comment on above: Result Comment: For ED adult patients suspected of sepsis, MDW<=20.0 does not rule out sepsis or risk of sepsis Performed By: #### G FR, PBNP, CBC, ADIFF, TROPHS, BMP, MDW, ANEU ####[address] [place], [place] [address] .NEUABSon 05-25-2023 Neutrophil, Absolute 5.3 10 3/mcL Normal 2.9-6.2 [facility] ([place] Comment on above: Performed By: #### G FR, PBNP, CBC, ADIFF, TROPHS, BMP, MDW, ANEU ####[address] [place], [place] [address] BMPon 05-25-2023 BUN/Creatinine Ratio 26 ratio Normal 7-27 [facility] ([place] Comment on above: Performed By: #### G FR, PBNP, CBC, ADIFF, TROPHS, BMP, MDW, ANEU ####[address] [place], [place] [address] Calcium [Mass/Vol] 9.3 mg/dL Normal 8.4-10.2 [facility] ([place] Comment on above: Performed By: #### G FR, PBNP, CBC, ADIFF, TROPHS, BMP, MDW, ANEU ####[address] [place], [place] [address] Chloride [Moles/Vol] 108 mmol/L High 98-107 [facility] ([place] Comment on above: Performed By: #### G FR, PBNP, CBC, ADIFF, TROPHS, BMP, MDW, ANEU ####[address] [place], [place] [address] CO2 [Moles/Vol] 29 mmol/L Normal 23-31 [facility] ([place] Comment on above: Performed By: #### G FR, PBNP, CBC, ADIFF, TROPHS, JAVIER, RAJAT, ANEU ####[address] [place], [place] [address] Creatinine [Mass/Vol] 1.75 mg/dL High 0.70-1.30 [facility] ([place]) Comment on above: Performed By: #### G FR, PBNP, CBC, ADIFF, TROPHS, BMP, RAJAT, ANEU ####[address] [place], [place] [address] Electrolyte Balance 7.0 mEq/L Normal 4.0-15.0 [facility] ([place] Comment on above: Performed By: #### G FR, PBNP, CBC, ADIFF, TROPHS, JAVIER, RAJAT, ANEU ####[address] [place], [place] [address] Glucose [Mass/Vol] 118 mg/dL High 83-110 [facility] ([place] Comment on above: Performed By: #### G FR, PBNP, CBC, ADIFF, TROPHS, JAVIER, RAJAT, ANEU ####[address] [place], [place] [address] Potassium [Moles/Vol] 5.6 mmol/L High 3.5-5.1 [facility] ([place]) Comment on above: Performed By: #### Jerrell FR, PBNP, CBC, ADIFF, TROPHS, JAVIER, RAJAT, ANEU ####[address] [place], [place] [address] Sodium [Moles/Vol] 144 mmol/L Normal 136-145 [facility] ([place] Comment on above: Performed By: #### G FR, PBNP, CBC, ADIFF, TROPHS, JAVIER, RAJAT, ANEU ####[address] [place], [place] [address] Urea nitrogen [Mass/Vol] 46 mg/dL High 7-18 [facility] ([place] Comment on above: Performed By: #### G FR, PBNP, CBC, ADIFF, TROPHS, BMP, MDW, ANEU ####[address]atie [address] [place], [place] [address] CBCon 05-25-2023 Erythrocyte distribution width (RBC) [Ratio] 16.3 % High 11.5-14.5 [facility] ([place] Comment on above: Performed By: #### G FR, PBNP, CBC, ADIFF, TROPHS, BMP, MDW, ANEU ####[address] [place], [place] [address] Hematocrit (Bld) [Volume fraction] 28.6 % Low 42.0-52.0 [facility] ([place]) Comment on above: Performed By: #### G FR, PBNP, CBC, ADIFF, TROPHS, BMP, W, ANEU ####[address] [place], [place] [address] Hgb 9.5 G/dL Low 14.0-18.0 [facility] [place] Comment on above: Performed By: #### G FR, PBNP, CBC, ADIFF, TROPHS, BMP, MDW, ANEU ####[address] [place], [place] [address] MCH (RBC) [Entitic mass] 28.4 pg Normal 27.0-31.2 [facility] ([place]) Comment on above: Performed By: #### G FR, PBNP, CBC, ADIFF, TROPHS, BMP, MDW, ANEU ####Katie [address] [place], [place] [address] MCHC 33.2 G/dL Normal 31.8-35.4 [facility] ([place]) Comment on above: Performed By: #### G FR, PBNP, CBC, ADIFF, TROPHS, BMP, W, ANEU ####[address] [place], [place] [address] MCV (RBC) [Entitic vol] 85.7 fL Normal 80.0-94.0 [facility] ([place]) Comment on above: Performed By: #### G FR, PBNP, CBC, ADIFF, TROPHS, BMP, MDW, ANEU ####[address] [place], [place] [address] Platelet 82 10 3/mcL Low 130-400 [facility] ([place] Comment on above: Performed By: #### Jerrell FR, PBNP, CBC, ADDEE, TROPHNia, JAVIER, RAJAT, ANEU ####[address] [place], [place] [address] Platelet mean volume (Bld) [Entitic vol] 8.2 fL Normal 7.4-10.4 [facility] [place] Comment on above: Performed By: #### Jerrell FR, PBNP, CBC, ADDEE, TROPHS, JAVIER, RAJAT, ANEU ####[address] [place], [place] [address] RBC 3.34 10 6/mcL Low 4.04-6.13 [facility] [place] Comment on above: Performed By: #### Jerrell FR, PBNP, CBC, ADDEE, SNEHA, JAVIER, RAJAT, ANEU ####[address] [place], [place] [address] WBC 6.8 10 3/mcL Normal 4.6-10.8 [facility] [place] Comment on above: Performed By: #### Jerrell FR, PBNP, CBC, ADDEE, TROPHS, JAVIER, RAJAT, ANEU ####[address] [place], [place] [address] CVFLURVon 05-25-2023 FLU A PCR Negative Normal Negative [facility] [place] Comment on above: Performed By: #### Fidencio VFLURV ####[address] [place], [place] [address] FLU B PCR Negative Normal Negative [facility] [place] Comment on above: Performed By: #### C VFLURV ####[address] [place], [place] [address] RSV PCR Negative Normal Negative [facility] [place] Comment on above: Performed By: #### C VFLURV ####[address] [place], [place] [address] SARS-CoV-2 (COVID-19) RNA JOSH+probe Ql (Unsp spec) Negative Normal Negative [facility] [place] Comment on above: Result Comment: Resu lts [...] inaccurate positive results. Performed By: #### C [facility] ####[address] [place], [place] [address] LABORATORYOrdered By: Reed Anna on 05-25-2023 FLUAV [...] ng/L Male: 0-76 ng/L Testing performed on [employer] using a homogeneous sandwich chemiluminescent immunoassay based on [employer] technology. Urea nitrogen [Mass/Vol] 46 mg/dL High 7 - 18 mg/dL AO ADM SS Urea nitrogen/Creatinine [Mass ratio] 26 ratio Normal 7 - 27 ratio AO ADM SS WBC (Bld) [#/Vol] 6.8 103/mcL Normal 4.6 - 10.8 10^3/mcL AO Workflow SS PBNPon 05-25-2023 Natriuretic peptide B (Bld) [Mass/Vol] 2608 pg/mL High 0-450 [facility] ([place]) Comment on above: Result Comment: NT-p roBNP results of less than 300 pg/mL effectivelyrules out acute congestive heart failure with 99% negative predictive value. Performed By: #### G FR, PBNP, CBC, ADIFF, TROPHS, BMP, RAJAT, ANEU ####[address] [place], [place] [address] TROPHSon 05-25-2023 High Sensitivity Troponin I 29 ng/L Normal 0-76 [facility] [place] Comment on above: Result Comment: High Sensitive Troponin I Reference Ranges:Female: 0-51 ng/LMale: 0-76 ng/LTesting performed on [employer] using a homogeneous sandwich chemiluminescent immunoassay based on [employer] technology. Performed By: #### G FR, PBNP, CBC, JEFERSON, SNEHA, JAVIER, RAJAT, ANEU ####[address] [place], [place] [address] XR CHEST 1 VIEWon 05-25-2023 XR CHEST 1 VIEW Normal [facility] [place] .Auto Diffon 05-24-2023 Basophil, Absolute 0.0 10 3/mcL Normal 0.0-0.2 [facility] ([place]) Comment on above: Performed By: #### M JEFERSON THOMAS ANEU, CBC ####[address] [place], [place] [address] Basophils/100 WBC (Bld) 0.6 % Normal 0.0-2.5 [facility] ([place]) Comment on above: Performed By: #### M JEFERSON THOMAS ANEU, CBC ####[address] [place], [place] [address] Eosinophil, Absolute 0.2 10 3/mcL Normal 0.0-0.4 [facility] ([place]) Comment on above: Performed By: #### M JEFERSON THOMAS ANEU, CBC ####[address] [place], [place] [address] Eosinophils/100 WBC (Bld) 3.6 % Normal 0.0-7.0 [facility] [place] Comment on above: Performed By: #### M JEFERSON THOMAS ANEU, CBC ####Katie [address] [place], [place] [address] Lymphocyte, Absolute 1.0 10 3/mcL Normal 0.8-3.9 [facility] ([place] Comment on above: Performed By: #### M MARTHA ADIFF, ANEU, CBC ####K[address] [place], [place] [address] Lymphocytes/100 WBC (Bld) 18.4 % Normal 10.0-50.0 [facility] ([place]) Comment on above: Performed By: #### M ORPH ADIFF, ANEU, CBC ####Katie [address] [place], [place] [address] Monocyte, Absolute 0.4 10 3/mcL Normal 0.2-1.0 [facility] ([place]) Comment on above: Performed By: #### M ORPH, ADIFF, ANEU, CBC ####Katie [address] [place], [place] [address] Monocytes/100 WBC (Bld) 7.1 % Normal 1.7-13.0 [facility] ([place]) Comment on above: Performed By: #### M ORPH ADIFF, ANEU, CBC ####Katie [address] [place], [place] [address] Neutrophils/100 WBC (Bld) 70.3 % Normal 37.0-80.0 [facility] ([place]) Comment on above: Performed By: #### M ORPH ADIFF, ANEU, CBC ####Katie [address] [place], [place] [address] .GFRon 05-24-2023 GFR 42 ml/min/1.73sqm Normal [facility] [place] Comment on above: Result Comment: GFR Population [...] #### C JANEEN PBNP, GFR ####[address] [place], [place] [address] GFR Non- 35 ml/min/1.73sqm Normal [facility] [place] Comment on above: Result Comment: GFR Population [...] #### C MP, PBNP, GFR ####K[address] [place], [place] [address] .Morphon 05-24-2023 Platelet Estimate Decreased Normal [facility] ([place] Comment on above: Performed By: #### M JEFERSON THOMAS ANEU, CBC ####Katie [address] [place], [place] [address] .NEUABSon 05-24-2023 Neutrophil, Absolute 3.7 10 3/mcL Normal 2.9-6.2 [facility] ([place] Comment on above: Performed By: #### M JEFERSON THOMAS ANEU, CBC ####Katie [address] [place], [place] [address] CBCon 05-24-2023 Erythrocyte distribution width (RBC) [Ratio] 15.7 % High 11.5-14.5 [facility] [place] Comment on above: Performed By: #### M JEFERSON THOMAS ANEU, CBC ####Katie [address] [place], [place] [address] Hematocrit (Bld) [Volume fraction] 27.2 % Low 42.0-52.0 [facility] [place] Comment on above: Performed By: #### M ORJEFERSON LOPEZ ANEU, CBC ####[address] [place], [place] [address] Hgb 9.1 G/dL Low 14.0-18.0 [facility] [place] Comment on above: Performed By: #### M JEFERSON THOMAS ANEU, CBC ####Katie [address] [place], [place] [address] MCH (RBC) [Entitic mass] 28.8 pg Normal 27.0-31.2 [facility] [place] Comment on above: Performed By: #### M ORJEFERSON LOPEZ ANEU, CBC ####K[address] [place], [place] [address] MCHC 33.3 G/dL Normal 31.8-35.4 [facility] [place] Comment on above: Performed By: #### M ORJEFERSON LOPEZ ANEU, CBC ####K[address] [place], [place] [address] MCV (RBC) [Entitic vol] 86.3 fL Normal 80.0-94.0 [facility] ([place]) Comment on above: Performed By: #### M JEFERSON THOMAS ANEU, CBC ####Katie [address] [place], [place] [address] Platelet 77 10 3/mcL Low 130-400 [facility] [place] Comment on above: Performed By: #### M ORJEFERSON LOPEZ ANEU, CBC ####K[address] [place], [place] [address] Platelet mean volume (Bld) [Entitic vol] 8.6 fL Normal 7.4-10.4 [facility] [place] Comment on above: Performed By: #### M ORJEFERSON LOPEZ ANEU, CBC ####Katie [address] [place], [place] [address] RBC 3.15 10 6/mcL Low 4.04-6.13 [facility] [place] Comment on above: Performed By: #### M ORJEFERSON LOPEZ ANEU, CBC ####Katie [address] [place], [place] [address] WBC 5.3 10 3/mcL Normal 4.6-10.8 [facility] [place] Comment on above: Performed By: #### M JEFERSON THOMAS, ANEU, CBC ####Katie [address] [place], [place] [address] CMPon 05-24-2023 Albumin Level 3.1 G/dL Low 3.4-4.8 [facility] ([place] Comment on above: Performed By: #### C MP, PBNP, GFR ####Katie [address] [place], [place] [address] Albumin/Globulin [Mass ratio] 0.9 {ratio} Low 1.1-2.5 [facility] [place] Comment on above: Performed By: #### C MP, PBNP, GFR ####[address] [place], [place] [address] ALP [Catalytic activity/Vol] 68 U/L Normal 40-135 [facility] ([place] Comment on above: Performed By: #### C MP, PBNP, GFR ####[address] [place], [place] [address] ALT [Catalytic activity/Vol] 25 U/L Normal 16-63 [facility] [place] Comment on above: Performed By: #### C MP, PBNP, GFR ####K[address] [place], [place] [address] AST [Catalytic activity/Vol] 11 U/L Normal 10-40 [facility] [place] Comment on above: Performed By: #### C MP, PBNP, GFR ####Katie [address] [place], [place] [address] Bili Total 0.5 mg/dL Normal 0.2-1.0 [facility] [place] Comment on above: Result Comment: Use of this assay is not recommended for patients undergoing treatment with eltrombopag due to the potential for falsely elevated results. Performed By: #### C MP, PBNP, GFR ####Katie [address] [place], [place] [address] BUN/Creatinine Ratio 21 ratio Normal 7-27 [facility] ([place]) Comment on above: Performed By: #### C MP, PBNP, GFR ####K[address] [place], [place] [address] Calcium [Mass/Vol] 8.6 mg/dL Normal 8.4-10.2 [facility] ([place]) Comment on above: Performed By: #### C MP, PBNP, GFR ####[address] [place], [place] [address] Chloride [Moles/Vol] 110 mmol/L High 98-107 [facility] ([place]) Comment on above: Performed By: #### C MP, PBNP, GFR ####Katie [address] [place], [place] [address] CO2 [Moles/Vol] 31 mmol/L Normal 23-31 [facility] [place] Comment on above: Performed By: #### C MP, PBNP, GFR ####[address] [place], [place] [address] Creatinine [Mass/Vol] 1.87 mg/dL High 0.70-1.30 [facility] ([place]) Comment on above: Performed By: #### C MP, PBNP, GFR ####[address] [place], [place] [address] Electrolyte Balance 5.0 mEq/L Normal 4.0-15.0 [facility] ([place]) Comment on above: Performed By: #### C MP, PBNP, GFR ####[address] [place], [place] [address] Globulin 3.3 G/dL Normal [facility] ([place] Comment on above: Performed By: #### C MP, PBNP, GFR ####[address] [place], [place] [address] Glucose [Mass/Vol] 177 mg/dL High 83-110 [facility] ([place]) Comment on above: Performed By: #### C MP, PBNP, GFR ####[address] [place], [place] [address] Potassium [Moles/Vol] 5.4 mmol/L High 3.5-5.1 [facility] ([place]) Comment on above: Performed By: #### C MP, PBNP, GFR ####Katie [address] [place], [place] [address] Sodium [Moles/Vol] 146 mmol/L High 136-145 [facility] ([place]) Comment on above: Performed By: #### C MP, PBNP, GFR ####Katie [address] [place], [place] [address] Total Protein 6.4 G/dL Normal 6.4-8.2 [facility] [place] Comment on above: Performed By: #### C MP, PBNP, GFR ####Katie [address] [place], [place] [address] Urea nitrogen [Mass/Vol] 40 mg/dL High 7-18 [facility] ([place] Comment on above: Performed By: #### C MP, PBNP, GFR ####Katie [address] [place], [place] [address] LABORATORYOrdered By: SYSTEM SYSTEM on 05-24-2023 Albumin [...] B (Bld) [Mass/Vol] 2097 pg/mL High 0-450 [facility] ([place] Comment on above: Result Comment: NT-p roBNP results of less than 300 pg/mL effectivelyrules out acute congestive heart failure with 99% negative predictive value. Performed By: #### C MP, PBNP, GFR ####[address] [place], [place] [address] .Auto Diffon 05-17-2023 Basophil, Absolute 0.0 10 3/mcL Normal 0.0-0.2 [facility] ([place]) Comment on above: Performed By: #### A DIFF, CBC, ANEU ####[address] [place], [place] [address] Basophils/100 WBC (Bld) 0.4 % Normal 0.0-2.5 [facility] ([place]) Comment on above: Performed By: #### A DIFF, CBC, ANEU ####[address] [place], [place] [address] Eosinophil, Absolute 0.2 10 3/mcL Normal 0.0-0.4 [facility] ([place] Comment on above: Performed By: #### A DIFF, CBC, ANEU ####Katie [address] [place], [place] [address] Eosinophils/100 WBC (Bld) 3.6 % Normal 0.0-7.0 [facility] [place] Comment on above: Performed By: #### A DIFF, CBC, ANEU ####[address] [place], [place] [address] Lymphocyte, Absolute 1.2 10 3/mcL Normal 0.8-3.9 [facility] ([place] Comment on above: Performed By: #### A DIFF, CBC, ANEU ####[address] [place], [place] [address] Lymphocytes/100 WBC (Bld) 19.6 % Normal 10.0-50.0 [facility] [place] Comment on above: Performed By: #### A DIFF, CBC, ANEU ####[address] [place], [place] [address] Monocyte, Absolute 0.5 10 3/mcL Normal 0.2-1.0 [facility] ([place]) Comment on above: Performed By: #### A DIFF, CBC, ANEU ####Katie [address] [place], [place] [address] Monocytes/100 WBC (Bld) 7.9 % Normal 1.7-13.0 [facility] ([place]) Comment on above: Performed By: #### A DIFF, CBC, ANEU ####Katie [address] [place], [place] [address] Neutrophils/100 WBC (Bld) 68.5 % Normal 37.0-80.0 [facility] [place] Comment on above: Performed By: #### A DIFF, CBC, ANEU ####Katie [address] [place], [place] [address] .GFRon 05-17-2023 GFR 47 ml/min/1.73sqm Normal [facility] ([place] Comment on above: Result Comment: GFR Population [...] FR, CMP, PBNP, A1C, TSH ####Katie [address] [place], [place] [address] GFR Non- 39 ml/min/1.73sqm Normal [facility] ([place] Comment on above: Result Comment: GFR Population [...] FR, CMP, PBNP, A1C, TSH ####K[address] [place], [place] [address] .NEUABSon 05-17-2023 Neutrophil, Absolute 4.3 10 3/mcL Normal 2.9-6.2 [facility] ([place]) Comment on above: Performed By: #### A DIFF, CBC, ANEU ####[address] [place], [place] [address] A1Con 05-17-2023 HbA1c (Bld) [Mass fraction] 7.7 % High 4.3-6.4 [facility] ([place] Comment on above: Performed By: #### G FR, CMP, PBNP, A1C, TSH ####[address] [place], [place] [address] CBCon 05-17-2023 Erythrocyte distribution width (RBC) [Ratio] 15.6 % High 11.5-14.5 [facility] ([place] Comment on above: Performed By: #### A DIFF, CBC, ANEU ####[address] [place], [place] [address] Hematocrit (Bld) [Volume fraction] 26.9 % Low 42.0-52.0 [facility] [place] Comment on above: Performed By: #### A DIFF, CBC, ANEU ####[address] [place], [place] [address] Hgb 9.2 G/dL Low 14.0-18.0 [facility] [place] Comment on above: Performed By: #### A DIFF, CBC, ANEU ####[address] [place], [place] [address] MCH (RBC) [Entitic mass] 29.0 pg Normal 27.0-31.2 [facility] [place] Comment on above: Performed By: #### A DIFF, CBC, ANEU ####[address] [place], [place] [address] MCHC 34.1 G/dL Normal 31.8-35.4 [facility] ([place] Comment on above: Performed By: #### A DIFF, CBC, ANEU ####[address] [place], [place] [address] MCV (RBC) [Entitic vol] 85.0 fL Normal 80.0-94.0 [facility] ([place]) Comment on above: Performed By: #### A DIFF, CBC, ANEU ####Katie [address] [place], [place] [address] Platelet 91 10 3/mcL Low 130-400 [facility] ([place] Comment on above: Performed By: #### A DIFF, CBC, ANEU ####[address] [place], [place] [address] Platelet mean volume (Bld) [Entitic vol] 9.1 fL Normal 7.4-10.4 [facility] ([place] Comment on above: Performed By: #### A DIFF, CBC, ANEU ####[address] [place], [place] [address] RBC 3.16 10 6/mcL Low 4.04-6.13 [facility] ([place] Comment on above: Performed By: #### A DIFF, CBC, ANEU ####[address] [place], [place] [address] WBC 6.3 10 3/mcL Normal 4.6-10.8 [facility] ([place] Comment on above: Performed By: #### A DIFF, CBC, ANEU ####[address] [place], [place] [address] CMPon 05-17-2023 Albumin Level 3.1 G/dL Low 3.4-4.8 [facility] ([place] Comment on above: Performed By: #### G FR, CMP, PBNP, A1C, TSH ####[address] [place], [place] [address] Albumin/Globulin [Mass ratio] 1.1 {ratio} Normal 1.1-2.5 [facility] ([place] Comment on above: Performed By: #### Jerrell FR, CMP, PBNP, A1C, TSH ####[address] [place], [place] [address] ALP [Catalytic activity/Vol] 66 U/L Normal 40-135 [facility] ([place] Comment on above: Performed By: #### G FR, CMP, PBNP, A1C, TSH ####[address] [place], [place] [address] ALT [Catalytic activity/Vol] 44 U/L Normal 16-63 [facility] [place] Comment on above: Performed By: #### G FR, CMP, PBNP, A1C, TSH ####[address] [place], [place] [address] AST [Catalytic activity/Vol] 17 U/L Normal 10-40 [facility] [place] Comment on above: Performed By: #### G FR, CMP, PBNP, A1C, TSH ####Katie [address] [place], [place] [address] Bili Total 0.5 mg/dL Normal 0.2-1.0 [facility] [place] Comment on above: Result Comment: Use of this assay is not recommended for patients undergoing treatment with eltrombopag due to the potential for falsely elevated results. Performed By: #### G FR, CMP, PBNP, A1C, TSH ####[address] [place], [place] [address] BUN/Creatinine Ratio 34 ratio High 7-27 [facility] ([place]) Comment on above: Performed By: #### G FR, CMP, PBNP, A1C, TSH ####[address] [place], [place] [address] Calcium [Mass/Vol] 8.5 mg/dL Normal 8.4-10.2 [facility] ([place]) Comment on above: Performed By: #### Jerrell FR, CMP, PBNP, A1C, TSH ####[address] [place], [place] [address] Chloride [Moles/Vol] 109 mmol/L High 98-107 [facility] ([place]) Comment on above: Performed By: #### G FR, CMP, PBNP, A1C, TSH ####[address] [place], [place] [address] CO2 [Moles/Vol] 28 mmol/L Normal 23-31 [facility] [place] Comment on above: Performed By: #### G FR, CMP, PBNP, A1C, TSH ####[address] [place], [place] [address] Creatinine [Mass/Vol] 1.70 mg/dL High 0.70-1.30 [facility] ([place]) Comment on above: Performed By: #### G FR, CMP, PBNP, A1C, TSH ####Katie [address] [place], [place] [address] Electrolyte Balance 6.0 mEq/L Normal 4.0-15.0 [facility] ([place]) Comment on above: Performed By: #### G FR, CMP, PBNP, A1C, TSH ####Katie [address] [place], [place] [address] Globulin 2.8 G/dL Normal [facility] ([place] Comment on above: Performed By: #### G FR, CMP, PBNP, A1C, TSH ####[address] [place], [place] [address] Glucose [Mass/Vol] 184 mg/dL High 83-110 [facility] ([place] Comment on above: Performed By: #### G FR, CMP, PBNP, A1C, TSH ####[address] [place], [place] [address] Potassium [Moles/Vol] 5.0 mmol/L Normal 3.5-5.1 [facility] ([place]) Comment on above: Performed By: #### G FR, CMP, PBNP, A1C, TSH ####[address] [place], [place] [address] Sodium [Moles/Vol] 143 mmol/L Normal 136-145 [facility] ([place] Comment on above: Performed By: #### G FR, CMP, PBNP, A1C, TSH ####[address] [place], [place] [address] Total Protein 5.9 G/dL Low 6.4-8.2 [facility] ([place] Comment on above: Performed By: #### G FR, CMP, PBNP, A1C, TSH ####[address] [place], [place] [address] Urea nitrogen [Mass/Vol] 58 mg/dL High 7-18 [facility] ([place] Comment on above: Performed By: #### G FR, CMP, PBNP, A1C, TSH ####Katie [address] [place], [place] [address] LABORATORYOrdered By: SYSTEM SYSTEM on 05-17-2023 Albumin [...] B (Bld) [Mass/Vol] 2219 pg/mL High 0-450 [facility] ([place]) Comment on above: Result Comment: NT-p roBNP results of less than 300 pg/mL effectivelyrules out acute congestive heart failure with 99% negative predictive value. Performed By: #### G FR, CMP, PBNP, A1C, TSH ####Katie [address] [place], [place] [address] TSHon 05-17-2023 TSH Qn 2.36 m[IU]/L Normal 0.36-3.74 [facility] ([place]) Comment on above: Performed By: #### G FR, CMP, PBNP, A1C, TSH ####[address] [place], [place] [address] .Auto Diffon 05-08-2023 Basophil, Absolute 0.0 10 3/mcL Normal 0.0-0.2 [facility] ([place] Comment on above: Performed By: #### G FR, CBC, MG, ANEU, ADIFF, BMP ####[address] [place], [place] [address] Basophils/100 WBC (Bld) 0.0 % Normal 0.0-2.5 [facility] ([place]) Comment on above: Performed By: #### Jerrell FR, CBC, MG, ANEU, ADIFF, BMP ####[address] [place], [place] [address] Eosinophil, Absolute 0.0 10 3/mcL Normal 0.0-0.4 [facility] ([place] Comment on above: Performed By: #### Jerrell FR, CBC, MG, ANEU, ADIFF, BMP ####[address] [place], [place] [address] Eosinophils/100 WBC (Bld) 0.0 % Normal 0.0-7.0 [facility] [place] Comment on above: Performed By: #### G FR, CBC, MG, ANEU, ADIFF, BMP ####[address] [place], [place] [address] Lymphocyte, Absolute 0.7 10 3/mcL Low 0.8-3.9 [facility] ([place] Comment on above: Performed By: #### G FR, CBC, MG, ANEU, ADIFF, BMP ####[address] [place], [place] [address] Lymphocytes/100 WBC (Bld) 11.0 % Normal 10.0-50.0 [facility] ([place] Comment on above: Performed By: #### G FR, CBC, MG, ANEU, ADIFF, BMP ####Katie [address] [place], [place] [address] Monocyte, Absolute 0.1 10 3/mcL Low 0.2-1.0 [facility] ([place] Comment on above: Performed By: #### G FR, CBC, MG, ANEU, ADIFF, BMP ####Katie [address] [place], [place] [address] Monocytes/100 WBC (Bld) 1.4 % Low 1.7-13.0 [facility] ([place]) Comment on above: Performed By: #### G FR, CBC, MG, ANEU, ADIFF, BMP ####K[address] [place], [place] [address] Neutrophils/100 WBC (Bld) 87.6 % High 37.0-80.0 [facility] [place] Comment on above: Performed By: #### G FR, CBC, MG, ANEU, ADIFF, BMP ####K[address] [place], [place] [address] .GFRon 05-08-2023 GFR Non- 26 ml/min/1.73sqm Normal [facility] [place] Comment on above: Result Comment: GFR Population [...] CBC, MG, ANEU, ADIFF, BMP ####K[address] [place], [place] [address] GFR 31 ml/min/1.73sqm Normal [facility] [place] Comment on above: Result Comment: GFR Population [...] CBC, MG, ANEU, ADIFF, BMP ####K[address] [place], [place] [address] .NEUABSon 05-08-2023 Neutrophil, Absolute 5.2 10 3/mcL Normal 2.9-6.2 [facility] ([place] Comment on above: Performed By: #### G FR, CBC, MG, ANEU, ADIFF, BMP ####K[address] [place], [place] [address] BMPon 05-08-2023 BUN/Creatinine Ratio 22 ratio Normal 7-27 [facility] ([place] Comment on above: Performed By: #### G FR, CBC, MG, ANEU, ADIFF, BMP ####K[address] [place], [place] [address] Calcium [Mass/Vol] 9.4 mg/dL Normal 8.4-10.2 [facility] ([place] Comment on above: Performed By: #### G FR, CBC, MG, ANEU, ADIFF, BMP ####[address] [place], [place] [address] Chloride [Moles/Vol] 103 mmol/L Normal 98-107 [facility] ([place] Comment on above: Performed By: #### G FR, CBC, MG, ANEU, ADIFF, BMP ####Katie [address] [place], [place] [address] CO2 [Moles/Vol] 31 mmol/L Normal 23-31 [facility] [place] Comment on above: Performed By: #### G FR, CBC, MG, ANEU, ADIFF, BMP ####K[address] [place], [place] [address] Creatinine [Mass/Vol] 2.42 mg/dL High 0.70-1.30 [facility] ([place]) Comment on above: Performed By: #### G FR, CBC, MG, ANEU, ADIFF, BMP ####K[address] [place], [place] [address] Electrolyte Balance 5.0 mEq/L Normal 4.0-15.0 [facility] ([place] Comment on above: Performed By: #### G FR, CBC, MG, ANEU, ADIFF, BMP ####[address] [place], [place] [address] Glucose [Mass/Vol] 211 mg/dL High 83-110 [facility] ([place]) Comment on above: Performed By: #### G FR, CBC, MG, ANEU, ADIFF, BMP ####[address] [place], [place] [address] Potassium [Moles/Vol] 5.9 mmol/L High 3.5-5.1 [facility] ([place]) Comment on above: Performed By: #### G FR, CBC, MG, ANEU, ADIFF, BMP ####[address] [place], [place] [address] Sodium [Moles/Vol] 139 mmol/L Normal 136-145 [facility] ([place]) Comment on above: Performed By: #### G FR, CBC, MG, ANEU, ADIFF, BMP ####[address] [place], [place] [address] Urea nitrogen [Mass/Vol] 54 mg/dL High 7-18 [facility] ([place]) Comment on above: Performed By: #### G FR, CBC, MG, ANEU, ADIFF, BMP ####[address] [place], [place] [address] CBCon 05-08-2023 Erythrocyte distribution width (RBC) [Ratio] 15.2 % High 11.5-14.5 [facility] ([place]) Comment on above: Performed By: #### G FR, CBC, MG, ANEU, ADIFF, BMP ####[address] [place], [place] [address] Hematocrit (Bld) [Volume fraction] 28.2 % Low 42.0-52.0 [facility] ([place]) Comment on above: Performed By: #### G FR, CBC, MG, ANEU, ADIFF, BMP ####[address] [place], [place] [address] Hgb 9.5 G/dL Low 14.0-18.0 [facility] ([place] Comment on above: Performed By: #### G FR, CBC, MG, ANEU, ADIFF, BMP ####[address] [place], [place] [address] MCH (RBC) [Entitic mass] 28.2 pg Normal 27.0-31.2 [facility] ([place] Comment on above: Performed By: #### G FR, CBC, MG, ANEU, ADIFF, BMP ####[address] [place], [place] [address] MCHC 33.5 G/dL Normal 31.8-35.4 [facility] ([place] Comment on above: Performed By: #### G FR, CBC, MG, ANEU, ADIFF, BMP ####[address] [place], [place] [address] MCV (RBC) [Entitic vol] 84.2 fL Normal 80.0-94.0 [facility] ([place]) Comment on above: Performed By: #### G FR, CBC, MG, ANEU, ADIFF, BMP ####[address] [place], [place] [address] Platelet 106 10 3/mcL Low 130-400 [facility] ([place] Comment on above: Performed By: #### G FR, CBC, MG, ANEU, ADIFF, BMP ####[address] [place], [place] [address] Platelet mean volume (Bld) [Entitic vol] 9.5 fL Normal 7.4-10.4 [facility] ([place] Comment on above: Performed By: #### G FR, CBC, MG, ANEU, ADIFF, BMP ####[address] [place], [place] [address] RBC 3.36 10 6/mcL Low 4.04-6.13 [facility] ([place] Comment on above: Performed By: #### G FR, CBC, MG, ANEU, ADIFF, BMP ####[address] [place], [place] [address] WBC 6.0 10 3/mcL Normal 4.6-10.8 [facility] ([place]) Comment on above: Performed By: #### G FR, CBC, MG, ANEU, ADIFF, BMP ####[address] [place], [place] [address] LABORATORYOrdered By: Zia Milton on 05-08-2023 Blood Glucose Testing Reason Routine (05/08/23 11:57 AM) [facility] Work Phone: Glucose [Mass/Vol] 301 mg/dL High 82 - 115 mg/dL [facility] Work Phone: LABORATORYOrdered By: Johnnie Bustos on 05-08-2023 Blood Glucose Testing Reason Routine (05/08/23 8:39 AM) [facility] Work Phone: Glucose [Mass/Vol] 186 mg/dL High 82 - 115 mg/dL [facility] Work Phone: LABORATORYOrdered By: SYSTEM SYSTEM [...] 05-08-2023 Magnesium [Mass/Vol] 1.9 mg/dL Normal 1.8-2.4 [facility] ([place]) Comment on above: Performed By: #### G FR, CBC, MG, ANEU, ADIFF, BMP ####[address] [place], [place] [address] .Auto Diffon 05-07-2023 Basophil, Absolute 0.1 10 3/mcL Normal 0.0-0.2 [facility] ([place]) Comment on above: Performed By: #### C BC, ADIFF, BMP, PBNP, GFR, ANEU, MDW, TROPHS ####[address] [place], [place] [address] Basophils/100 WBC (Bld) 0.7 % Normal 0.0-2.5 [facility] ([place]) Comment on above: Performed By: #### C BC, ADIFF, BMP, PBNP, GFR, ANEU, MDW, TROPHS ####[address] [place], [place] [address] Eosinophil, Absolute 0.4 10 3/mcL Normal 0.0-0.4 [facility] ([place]) Comment on above: Performed By: #### C BC, ADIFF, BMP, PBNP, GFR, ANEU, MDW, TROPHS ####[address] [place], [place] [address] Eosinophils/100 WBC (Bld) 5.2 % Normal 0.0-7.0 [facility] ([place] Comment on above: Performed By: #### C BC, ADIFF, BMP, PBNP, GFR, ANEU, MDW, TROPHS ####[address] [place], [place] [address] Lymphocyte, Absolute 1.6 10 3/mcL Normal 0.8-3.9 [facility] ([place]) Comment on above: Performed By: #### C BC, ADIFF, BMP, PBNP, GFR, ANEU, W, TROPHS ####[address] [place], [place] [address] Lymphocytes/100 WBC (Bld) 21.2 % Normal 10.0-50.0 [facility] ([place] Comment on above: Performed By: #### C BC, ADIFF, BMP, PBNP, GFR, ANEU, MDW, TROPHS ####[address] [place], [place] [address] Monocyte, Absolute 0.5 10 3/mcL Normal 0.2-1.0 [facility] ([place]) Comment on above: Performed By: #### C BC, ADIFF, BMP, PBNP, GFR, ANEU, MDW, TROPHS ####[address] [place], [place] [address] Monocytes/100 WBC (Bld) 6.7 % Normal 1.7-13.0 [facility] ([place]) Comment on above: Performed By: #### C BC, ADIFF, BMP, PBNP, GFR, ANEU, MDW, TROPHS ####[address] [place], [place] [address] Neutrophils/100 WBC (Bld) 66.2 % Normal 37.0-80.0 [facility] ([place] Comment on above: Performed By: #### C BC, ADIFF, BMP, PBNP, GFR, ANEU, MDW, TROPHS ####[address] [place], [place] [address] .GFRon 05-07-2023 GFR 31 ml/min/1.73sqm Normal [facility] ([place]) Comment on above: Result Comment: GFR Population [...] PBNP, GFR, ANEU, MDW, TROPHS ####[address] [place], [place] [address] GFR Non- 26 ml/min/1.73sqm Normal [facility] ([place] Comment on above: Result Comment: GFR Population [...] PBNP, GFR, ANEU, MDW, TROPHS ####[address] [place], [place] [address] .MDWon 05-07-2023 Monocyte Distribution Width 17.51 Normal 0.00-20.00 [facility] ([place]) Comment on above: Result Comment: For ED adult patients suspected of sepsis, MDW<=20.0 does not rule out sepsis or risk of sepsis Performed By: #### C BC, ADIFF, BMP, PBNP, GFR, ANEU, MDW, TROPHS ####[address] [place], [place] [address] .NEUABSon 05-07-2023 Neutrophil, Absolute 5.1 10 3/mcL Normal 2.9-6.2 [facility] ([place]) Comment on above: Performed By: #### C BC, ADIFF, BMP, PBNP, GFR, ANEU, MDW, TROPHS ####[address] [place], [place] [address] BMPon 05-07-2023 BUN/Creatinine Ratio 18 ratio Normal 7-27 [facility] ([place]) Comment on above: Performed By: #### C BC, ADIFF, BMP, PBNP, GFR, ANEU, MDW, TROPHS ####[address] [place], [place] [address] Calcium [Mass/Vol] 9.3 mg/dL Normal 8.4-10.2 [facility] ([place]) Comment on above: Performed By: #### C BC, ADIFF, BMP, PBNP, GFR, ANEU, MDW, TROPHS ####[address] [place], [place] [address] Chloride [Moles/Vol] 104 mmol/L Normal 98-107 [facility] ([place]) Comment on above: Performed By: #### C BC, ADIFF, BMP, PBNP, GFR, ANEU, MDW, TROPHS ####[address] [place], [place] [address] CO2 [Moles/Vol] 37 mmol/L High 23-31 [facility] ([place] Comment on above: Performed By: #### C BC, ADIFF, BMP, PBNP, GFR, ANEU, MDW, TROPHS ####[address] [place], [place] [address] Creatinine [Mass/Vol] 2.43 mg/dL High 0.70-1.30 [facility] ([place]) Comment on above: Performed By: #### C BC, ADIFF, BMP, PBNP, GFR, ANEU, MDW, TROPHS ####[address] [place], [place] [address] Electrolyte Balance 4.0 mEq/L Normal 4.0-15.0 [facility] ([place]) Comment on above: Performed By: #### C BC, ADIFF, BMP, PBNP, GFR, ANEU, MDW, TROPHS ####[address] [place], [place] [address] Glucose [Mass/Vol] 129 mg/dL High 83-110 [facility] ([place] Comment on above: Performed By: #### C BC, ADIFF, BMP, PBNP, GFR, ANEU, MDW, TROPHS ####[address] [place], [place] [address] Potassium [Moles/Vol] 5.2 mmol/L High 3.5-5.1 [facility] ([place]) Comment on above: Performed By: #### C BC, ADIFF, BMP, PBNP, GFR, ANEU, MDW, TROPHS ####[address] [place], [place] [address] Sodium [Moles/Vol] 145 mmol/L Normal 136-145 [facility] ([place] Comment on above: Performed By: #### C BC, ADIFF, BMP, PBNP, GFR, ANEU, MDW, TROPHS ####[address] [place], [place] [address] Urea nitrogen [Mass/Vol] 44 mg/dL High 7-18 [facility] ([place] Comment on above: Performed By: #### C BC, ADIFF, BMP, PBNP, GFR, ANEU, MDW, TROPHS ####[address] [place], [place] [address] CBCon 05-07-2023 Erythrocyte distribution width (RBC) [Ratio] 15.3 % High 11.5-14.5 [facility] ([place]) Comment on above: Performed By: #### C BC, ADIFF, BMP, PBNP, GFR, ANEU, MDW, TROPHS ####[address] [place], [place] [address] Hematocrit (Bld) [Volume fraction] 29.4 % Low 42.0-52.0 [facility] ([place] Comment on above: Performed By: #### C BC, ADIFF, BMP, PBNP, GFR, ANEU, MDW, TROPHS ####[address] [place], [place] [address] Hgb 9.9 G/dL Low 14.0-18.0 [facility] ([place] Comment on above: Performed By: #### C BC, ADIFF, BMP, PBNP, GFR, ANEU, MDW, TROPHS ####[address] [place], [place] [address] MCH (RBC) [Entitic mass] 28.2 pg Normal 27.0-31.2 [facility] ([place] Comment on above: Performed By: #### C BC, ADIFF, BMP, PBNP, GFR, ANEU, MDW, TROPHS ####[address] [place], [place] [address] MCHC 33.5 G/dL Normal 31.8-35.4 [facility] ([place]) Comment on above: Performed By: #### C BC, ADIFF, BMP, PBNP, GFR, ANEU, MDW, TROPHS ####[address] [place], [place] [address] MCV (RBC) [Entitic vol] 84.3 fL Normal 80.0-94.0 [facility] ([place]) Comment on above: Performed By: #### C BC, ADIFF, BMP, PBNP, GFR, ANEU, MDW, TROPHS ####[address] [place], [place] [address] Platelet 134 10 3/mcL Normal 130-400 [facility] ([place]) Comment on above: Performed By: #### C BC, ADIFF, BMP, PBNP, GFR, ANEU, MDW, TROPHS ####[address] [place], [place] [address] Platelet mean volume (Bld) [Entitic vol] 8.8 fL Normal 7.4-10.4 [facility] ([place]) Comment on above: Performed By: #### C BC, ADIFF, BMP, PBNP, GFR, ANEU, MDW, TROPHS ####[address] [place], [place] [address] RBC 3.49 10 6/mcL Low 4.04-6.13 [facility] ([place]) Comment on above: Performed By: #### C BC, ADIFF, BMP, PBNP, GFR, ANEU, MDW, TROPHS ####[address] [place], [place] [address] WBC 7.7 10 3/mcL Normal 4.6-10.8 [facility] ([place]) Comment on above: Performed By: #### C BC, ADDEE, BMP, PBNP, GFR, KARRIE, RAJAT, TROPHS ####[address] [place], [place] [address] LABORATORYOrdered By: Maxine Ingram on 05-07-2023 Blood Glucose Testing Reason Routine (05/07/23 9:37 PM) [facility] Work Phone: Glucose [Mass/Vol] 368 mg/dL High 82 - 115 mg/dL [facility] Work Phone: LABORATORYOrdered By: SYSTEM SYSTEM [...] B (Bld) [Mass/Vol] 1374 pg/mL High 0-450 [facility] ([place]) Comment on above: Result Comment: NT-p roBNP results of less than 300 pg/mL effectivelyrules out acute congestive heart failure with 99% negative predictive value. Performed By: #### C BC, ADDEE, BMP, PBNP, GFR, RAJAT YOON, SNEHA ####[address] [place], [place] [address] TROPHSon 05-07-2023 Troponin I High Sensitivity 22.1 ng/L Normal 0.0-76.2 [facility] ([place]) Comment on above: Performed By: #### C BC, ADIFF, BMP, PBNP, GFR, RAJAT YOON, SNEHA ####[address] [place], [place] [address] XR CHEST 1 VIEWon 05-07-2023 XR CHEST 1 VIEW Normal [facility] ([place]) Basophil percentageOrdered B y: Talya Nichols on 05-04-2023 Bilirubin [Mass/Vol] 0.50 mg/dL 0.20-1.00 [facility] Comment on above: For patients on eltr ombopag therapy, use of Dimension [place] TBIL is not recommended. Chloride [Moles/Vol] 102 mmol/L 98-107 [facility] Glucose [Mass/Vol] 212 mg/dL 74-106 [facility] Comment on above: Glucose result great er than or equal to 200 mg/dLsuggests DIABETES MELLITUS per A.D.A. criteria. Hemoglobin (Bld) [Mass/Vol] 8.8 g/dL 13.0-16.5 [facility] Potassium [Moles/Vol] 4.3 mmol/L 3.5-5.1 [facility] Protein [Mass/Vol] 6.8 g/dL 6.4-8.2 [facility] Sodium [Moles/Vol] 143 mmol/L 136-145 [facility] WBC (Bld) [#/Vol] 5.0 10*3/uL 4.4-11.0 [facility] Determination of erythrocyte mean corpuscular volume (MCV)Ordered By: Talya Nichols on 05-04-2023 MCV (RBC) [Entitic vol] 91.9 fL 80-94 [facility] Erythrocyte distribution wid th ratioOrdered By: Talya Nichols on 05-04-2023 Erythrocyte distribution width (RBC) [Ratio] 14.1 % 11.6-14.6 [facility] Erythrocyte distribution wid th standard deviationOrdered By: Talya Nichols on 05-04-2023 Erythrocyte distribution width (RBC) [Entitic vol] 47.2 fL 35.1-43.9 [facility] Hematocrit Auto (Bld) [Volum e fraction]Ordered By: Talya Nichols on 05-04-2023 Hematocrit (Bld) [Volume fraction] 29.6 % 40-54 [facility] Laboratory - Chemistry and C hemistry - challengeOrdered By: Talya Nichols on 05-04-2023 Albumin/Globulin [Mass ratio] 0.9 {ratio} 0.9-2.4 [facility] ALP [Catalytic activity/Vol] 74 U/L 45-117 [facility] ALT [Catalytic activity/Vol] 23 U/L 16-61 [facility] CO2 [Moles/Vol] 37.0 mmol/L 21.0-32.0 [facility] Globulin (S) [Mass/Vol] 3.6 g/dL 2.2-4.2 [facility] Natriuretic peptide B (Bld) [Mass/Vol] 253.6 pg/mL 0-100 [facility] Urea nitrogen/Creatinine [Mass ratio] 22.9 mg/mg 10-20 [facility] Laboratory - Hematology and Cell countsOrdered By: Talya Nichols on 05-04-2023 MCH (RBC) [Entitic mass] 27.3 pg 27.0-32.0 [facility] MCHC (RBC) [Mass/Vol] 29.7 g/dL 32-36 [facility] Platelet mean volume (Bld) [Entitic vol] 12.2 fL 6.2-12.0 [facility] Platelets (Bld) [#/Vol] 122 10*3/uL 150-450 [facility] No Panel InformationOrdered By: Talya Nichols on 05-04-2023 Estimated GFR (MDRD) Amer 39 mL/min >60 [facility] Comment on above: GFR Calc Estimated GFR (MDRD) Non-Af Amer 32 mL/min >60 [facility] Comment on above: Non- GFR Calc RBC Auto (Bld) [#/Vol]Ordere d By: Talya Nichols on 05-04-2023 RBC (Bld) [#/Vol] 3.22 10*6/uL 4.6-6.2 [facility] Serum or plasma calcium elmira urement (mass/volume)Ordered By: Talya Nichols on 05-04-2023 Calcium [Mass/Vol] 10.5 mg/dL 8.5-10.1 [facility] Serum or plasma creatinine m easurement (mass/volume)Ordered By: Talya Nichols on 05-04-2023 Creatinine [Mass/Vol] 2.10 mg/dL 0.70-1.30 [facility] Comment on above: The validity of the calculated GFR & GFRAA in patients over 70 years has not been determined. Clinical correlation is essential. Serum or plasma urea nitroge n measurement (mass/volume)Ordered By: Talya Nichols on 05-04-2023 Urea nitrogen [Mass/Vol] 48 mg/dL 7-18 [facility] Thin prep Papanicolaou smear with manual screeningOrdered By: Talya Nichols on 05-04-2023 Thin prep Papanicolaou smear with manual screening 3.2 g/dL 3.2-5.0 [facility] Thin prep Papanicolaou smear with manual screening 17 U/L 15-37 [facility] Thin prep Papanicolaou smear with manual screening 4 5-15 [facility] Absolute lymphocyte countOrd ered By: Frederick Logan on 04-30-2023 Lymphocytes Auto (Unsp spec) [#/Vol] 1.03 10*3/uL 0.83-4.51 [facility] Automated lymphocyte count a s percentage of total leukocytesOrdered By: Frederick Logan on 04-30-2023 Lymphocytes/100 WBC Auto (Unsp spec) 24.1 % 19-41 [facility] Basophil percentageOrdered B y: Frederick Logan on 04-30-2023 Basophils/100 WBC (Bld) 0.5 % 0-1 [facility] Chloride [Moles/Vol] 112 mmol/L 98-107 [facility] Eosinophils/100 WBC (Bld) 5.6 % 0-5 [facility] Glucose [Mass/Vol] 131 mg/dL 74-106 [facility] Comment on above: Fasting Glucose resu lt greater than or equal to 126 mg/dL suggests DIABETES MELLITUS per A.D.A. criteria. Hemoglobin (Bld) [Mass/Vol] 8.3 g/dL 13.0-16.5 [facility] Monocytes/100 WBC (Bld) 9.3 % 0-10 [facility] Neutrophils (Bld) [#/Vol] 2.6 10*3/uL 2.0-7.7 [facility] Neutrophils/100 WBC (Bld) 60.3 % 47-70 [facility] Potassium [Moles/Vol] 4.2 mmol/L 3.5-5.1 [facility] Sodium [Moles/Vol] 147 mmol/L 136-145 [facility] WBC (Bld) [#/Vol] 4.3 10*3/uL 4.4-11.0 [facility] Determination of erythrocyte mean corpuscular volume (MCV)Ordered By: Frederick Logan on 04-30-2023 MCV (RBC) [Entitic vol] 90.9 fL 80-94 [facility] Erythrocyte distribution wid th ratioOrdered By: Frederick Logan on 04-30-2023 Erythrocyte distribution width (RBC) [Ratio] 14.2 % 11.6-14.6 [facility] Erythrocyte distribution wid th standard deviationOrdered By: Frederick Logan on 04-30-2023 Erythrocyte distribution width (RBC) [Entitic vol] 46.7 fL 35.1-43.9 [facility] Hematocrit Auto (Bld) [Volum e fraction]Ordered By: Frederick Logan on 04-30-2023 Hematocrit (Bld) [Volume fraction] 28.0 % 40-54 [facility] Immature granulocytes/100 WB C Auto (Bld)Ordered By: Frederick Logan on 04-30-2023 Immature granulocytes/100 WBC (Bld) 0.200 % 0.0-0.9 [facility] Comment on above: IG% - Immature Granu locytes (promyelocytes, myelocytes and metamyelocytes) > 1% indicates that a LEFT SHIFT is Present. Laboratory - Chemistry and C hemistry - challengeOrdered By: Frederick Logan on 04-30-2023 CO2 [Moles/Vol] 34.0 mmol/L 21.0-32.0 [facility] Natriuretic peptide B (Bld) [Mass/Vol] 292.3 pg/mL 0-100 [facility] Urea nitrogen/Creatinine [Mass ratio] 36.8 mg/mg 10-20 [facility] Laboratory - Hematology and Cell countsOrdered By: Frederick Logan on 04-30-2023 MCH (RBC) [Entitic mass] 26.9 pg 27.0-32.0 [facility] MCHC (RBC) [Mass/Vol] 29.6 g/dL 32-36 [facility] Nucleated RBC/100 WBC (Bld) [Ratio] 0 % 0-5 [facility] Platelet mean volume (Bld) [Entitic vol] 11.9 fL 6.2-12.0 [facility] Platelets (Bld) [#/Vol] 109 10*3/uL 150-450 [facility] No Panel InformationOrdered By: Frederick Logan on 04-30-2023 Estimated Creatinine Clearance Calc 28.55 ml/min [facility] Estimated GFR (MDRD) Amer 40 mL/min >60 [facility] Comment on above: GFR Calc Estimated GFR (MDRD) Non-Af Amer 33 mL/min >60 [facility] Comment on above: Non- GFR Calc RBC Auto (Bld) [#/Vol]Ordere d By: Frederick Logan on 04-30-2023 RBC (Bld) [#/Vol] 3.08 10*6/uL 4.6-6.2 [facility] Serum or plasma calcium elmira urement (mass/volume)Ordered By: Frederick Logan on 04-30-2023 Calcium [Mass/Vol] 9.0 mg/dL 8.5-10.1 [facility] Serum or plasma creatinine m easurement (mass/volume)Ordered By: Frederick Logan on 04-30-2023 Creatinine [Mass/Vol] 2.04 mg/dL 0.70-1.30 [facility] Comment on above: The validity of the calculated GFR & GFRAA in patients over 70 years has not been determined. Clinical correlation is essential. Serum or plasma urea nitroge n measurement (mass/volume)Ordered By: Frederick Logan on 04-30-2023 Urea nitrogen [Mass/Vol] 75 mg/dL 7-18 [facility] Thin prep Papanicolaou smear with manual screeningOrdered By: Frederick Logan on 04-30-2023 Thin prep Papanicolaou smear with manual screening 1 5-15 [facility] Absolute lymphocyte countOrd ered By: John Anders on 04-26-2023 Lymphocytes Auto (Unsp spec) [#/Vol] 1.40 10*3/uL 0.83-4.51 [facility] Automated lymphocyte count a s percentage of total leukocytesOrdered By: John Anders on 04-26-2023 Lymphocytes/100 WBC Auto (Unsp spec) 24.7 % 19-41 [facility] Basophil percentageOrdered B y: John Anders on 04-26-2023 Basophils/100 WBC (Bld) 0.7 % 0-1 [facility] Chloride [Moles/Vol] 101 mmol/L 98-107 [facility] Eosinophils/100 WBC (Bld) 6.0 % 0-5 [facility] Glucose [Mass/Vol] 129 mg/dL 74-106 [facility] Comment on above: Fasting Glucose resu lt greater than or equal to 126 mg/dL suggests DIABETES MELLITUS per A.D.A. criteria. Hemoglobin (Bld) [Mass/Vol] 9.4 g/dL 13.0-16.5 [facility] Monocytes/100 WBC (Bld) 8.8 % 0-10 [facility] Neutrophils (Bld) [#/Vol] 3.4 10*3/uL 2.0-7.7 [facility] Neutrophils/100 WBC (Bld) 59.6 % 47-70 [facility] Potassium [Moles/Vol] 3.8 mmol/L 3.5-5.1 [facility] Sodium [Moles/Vol] 142 mmol/L 136-145 [facility] WBC (Bld) [#/Vol] 5.7 10*3/uL 4.4-11.0 [facility] Determination of erythrocyte mean corpuscular volume (MCV)Ordered By: John Anders on 04-26-2023 MCV (RBC) [Entitic vol] 88.3 fL 80-94 [facility] Erythrocyte distribution wid th ratioOrdered By: John Anders on 04-26-2023 Erythrocyte distribution width (RBC) [Ratio] 14.6 % 11.6-14.6 [facility] Erythrocyte distribution wid th standard deviationOrdered By: John Anders on 04-26-2023 Erythrocyte distribution width (RBC) [Entitic vol] 46.8 fL 35.1-43.9 [facility] Hematocrit Auto (Bld) [Volum e fraction]Ordered By: John Anders on 04-26-2023 Hematocrit (Bld) [Volume fraction] 30.2 % 40-54 [facility] Immature granulocytes/100 WB C Auto (Bld)Ordered By: John Anders on 04-26-2023 Immature granulocytes/100 WBC (Bld) 0.200 % 0.0-0.9 [facility] Comment on above: IG% - Immature Granu locytes (promyelocytes, myelocytes and metamyelocytes) > 1% indicates that a LEFT SHIFT is Present. Laboratory - Chemistry and C hemistry - challengeOrdered By: John Anders on 04-26-2023 CO2 [Moles/Vol] 31.0 mmol/L 21.0-32.0 [facility] Urea nitrogen/Creatinine [Mass ratio] 23.9 mg/mg 10-20 [facility] Laboratory - Hematology and Cell countsOrdered By: John Anders on 04-26-2023 MCH (RBC) [Entitic mass] 27.5 pg 27.0-32.0 [facility] MCHC (RBC) [Mass/Vol] 31.1 g/dL 32-36 [facility] Nucleated RBC/100 WBC (Bld) [Ratio] 0 % 0-5 [facility] Platelet mean volume (Bld) [Entitic vol] 11.7 fL 6.2-12.0 [facility] Platelets (Bld) [#/Vol] 123 10*3/uL 150-450 [facility] No Panel InformationOrdered By: John Anders on 04-26-2023 Estimated Creatinine Clearance Calc 23.25 ml/min [facility] Estimated GFR (MDRD) Amer 33 mL/min >60 [facility] Comment on above: GFR Calc Estimated GFR (MDRD) Non-Af Amer 27 mL/min >60 [facility] Comment on above: Non- GFR Calc RBC Auto (Bld) [#/Vol]Ordere d By: John Anders on 04-26-2023 RBC (Bld) [#/Vol] 3.42 10*6/uL 4.6-6.2 [facility] Serum or plasma calcium elmira urement (mass/volume)Ordered By: John Anders on 04-26-2023 Calcium [Mass/Vol] 9.9 mg/dL 8.5-10.1 [facility] Serum or plasma creatinine m easurement (mass/volume)Ordered By: John Anders on 04-26-2023 Creatinine [Mass/Vol] 2.43 mg/dL 0.70-1.30 [facility] Comment on above: The validity of the calculated GFR & GFRAA in patients over 70 years has not been determined. Clinical correlation is essential. Serum or plasma urea nitroge n measurement (mass/volume)Ordered By: John Anders on 04-26-2023 Urea nitrogen [Mass/Vol] 58 mg/dL 7-18 [facility] Thin prep Papanicolaou smear with manual screeningOrdered By: John Anders on 04-26-2023 Thin prep Papanicolaou smear with manual screening 209 mg/dL 74-106 [facility] Comment on above: MANAGEMENT OF PATIEN T CARE PER NURSING PROTOCOL Thin prep Papanicolaou smear with manual screening 10 -15 [facility] Basophil percentageOrdered B y: Michelle Washburn on 04-25-2023 Basophil percentage 2.4 mg/dL 2.5-4.9 [facility] Bilirubin [Mass/Vol] 0.90 mg/dL 0.20-1.00 [facility] Comment on above: For patients on eltr ombopag therapy, use of Dimension [place] TBIL is not recommended. Cholesterol [Mass/Vol] 170 mg/dL <200 [facility] Comment on above: <200 mg/dL Desirable 200-240 mg/dL Borderline >240 mg/dL High Risk Protein [Mass/Vol] 7.0 g/dL 6.4-8.2 [facility] Triglyceride [Mass/Vol] 216 mg/dL <199 [facility] Comment on above: The drugs N-Acetylcy steine and Metamizole may falsely depress this assay.Serum Triglycerides Reference Interval Normal <150 mg/dL Borderline high 150 - 199 mg/dL High 200 - 499 mg/dL Very High > or = 500 mg/dL Laboratory - Chemistry and C hemistry - challengeOrdered By: Michelle Washburn on 04-25-2023 Albumin/Globulin [Mass ratio] 0.9 {ratio} 0.9-2.4 [facility] ALP [Catalytic activity/Vol] 80 U/L 45-117 [facility] ALT [Catalytic activity/Vol] 13 U/L 16-61 [facility] Cholesterol in HDL [Mass/Vol] 33 mg/dL >40 [facility] Comment on above: The drugs N-Acetylcy steine and Metamizole may falsely depress this assay. Reference Range HDL <40 mg/dL Low HDL Cholesterol HDL >or= 60 mg/dL High HDL Cholesterol Cholesterol in LDL [Mass/Vol] 94 mg/dL 0-130 [facility] Globulin (S) [Mass/Vol] 3.7 g/dL 2.2-4.2 [facility] Magnesium [Mass/Vol] 1.6 mg/dL 1.6-2.6 [facility] No Panel InformationOrdered By: Michelle Washburn on 04-25-2023 VLDL Cholesterol 43 mg/dL 5-40 [facility] Troponin I High Sensitivity 334 pg/mL 3.0-78.0 [facility] Comment on above: CRITICAL VALUE BAILEY Cole LOPEZ RN ([facility])04/25/23 0320 N JEAN-BAPTISTE.RESULTS READ BACK BY SAME . Please Note: New Test Units and Gender Specific Reference Ranges. For more information see Policy Stat Procedure [place] High Sensitivity Troponin (TNIH) and attachments. Serum or plasma thyroid stim ulating hormone (TSH) measurement (units/volume)Ordered By: Michelle Washburn on 04-25-2023 TSH Qn 3.43 uIU/mL 0.358-3.74 [facility] Thin prep Papanicolaou smear with manual screeningOrdered By: Michelle Washburn on 04-25-2023 Thin prep Papanicolaou smear with manual screening 3.3 g/dL 3.2-5.0 [facility] Thin prep Papanicolaou smear with manual screening 17 U/L 15-37 [facility] Absolute lymphocyte countOrd ered By: Jr Thomas on 04-24-2023 Lymphocytes Auto (Unsp spec) [#/Vol] 0.67 10*3/uL 0.83-4.51 [facility] Automated lymphocyte count a s percentage of total leukocytesOrdered By: Jr Thomas on 04-24-2023 Lymphocytes/100 WBC Auto (Unsp spec) 12.0 % 19-41 [facility] Basophil percentageOrdered B y: Jr Thomas on 04-24-2023 Basophils/100 WBC (Bld) 0.5 % 0-1 [facility] Chloride [Moles/Vol] 108 mmol/L 98-107 [facility] Eosinophils/100 WBC (Bld) 4.5 % 0-5 [facility] Glucose [Mass/Vol] 200 mg/dL 74-106 [facility] Comment on above: Glucose result great er than or equal to 200 mg/dLsuggests DIABETES MELLITUS per A.D.A. criteria. Hemoglobin (Bld) [Mass/Vol] 9.3 g/dL 13.0-16.5 [facility] Monocytes/100 WBC (Bld) 6.1 % 0-10 [facility] Neutrophils (Bld) [#/Vol] 4.3 10*3/uL 2.0-7.7 [facility] Neutrophils/100 WBC (Bld) 76.7 % 47-70 [facility] Potassium [Moles/Vol] 4.1 mmol/L 3.5-5.1 [facility] Sodium [Moles/Vol] 145 mmol/L 136-145 [facility] WBC (Bld) [#/Vol] 5.6 10*3/uL 4.4-11.0 [facility] Determination of erythrocyte mean corpuscular volume (MCV)Ordered By: Jr Thomas on 04-24-2023 MCV (RBC) [Entitic vol] 89.6 fL 80-94 [facility] Erythrocyte distribution wid th ratioOrdered By: Jr Thomas on 04-24-2023 Erythrocyte distribution width (RBC) [Ratio] 14.7 % 11.6-14.6 [facility] Erythrocyte distribution wid th standard deviationOrdered By: Jr Thomas on 04-24-2023 Erythrocyte distribution width (RBC) [Entitic vol] 48.0 fL 35.1-43.9 [facility] Hematocrit Auto (Bld) [Volum e fraction]Ordered By: Jr Thomas on 04-24-2023 Hematocrit (Bld) [Volume fraction] 30.1 % 40-54 [facility] Immature granulocytes/100 WB C Auto (Bld)Ordered By: Jr Thomas on 04-24-2023 Immature granulocytes/100 WBC (Bld) 0.200 % 0.0-0.9 [facility] Comment on above: IG% - Immature Granu locytes (promyelocytes, myelocytes and metamyelocytes) > 1% indicates that a LEFT SHIFT is Present. Laboratory - Chemistry and C hemistry - challengeOrdered By: Jr Thomas on 04-24-2023 CO2 [Moles/Vol] 33.0 mmol/L 21.0-32.0 [facility] Natriuretic peptide B (Bld) [Mass/Vol] 143.1 pg/mL 0-100 [facility] Urea nitrogen/Creatinine [Mass ratio] 21.5 mg/mg 10-20 [facility] Laboratory - Hematology and Cell countsOrdered By: Jr Thomas on 04-24-2023 MCH (RBC) [Entitic mass] 27.7 pg 27.0-32.0 [facility] MCHC (RBC) [Mass/Vol] 30.9 g/dL 32-36 [facility] Nucleated RBC/100 WBC (Bld) [Ratio] 0 % 0-5 [facility] Platelet mean volume (Bld) [Entitic vol] 11.9 fL 6.2-12.0 [facility] Platelets (Bld) [#/Vol] 103 10*3/uL 150-450 [facility] Laboratory - Microbiology an d Antimicrobial susceptibilityOrdered By: Jr Thomas on 04-24-2023 SARS-CoV-2 (COVID-19) RNA JOSH+probe Ql (Unsp spec) [facility] SARS-CoV-2 (COVID-19) RNA JOSH+probe Ql (Unsp spec) [facility] No Panel InformationOrdered By: Jr Thomas on 04-24-2023 Estimated Creatinine Clearance Calc 29.00 ml/min [facility] Estimated GFR (MDRD) Amer 41 mL/min >60 [facility] Comment on above: GFR Calc Estimated GFR (MDRD) Non-Af Amer 34 mL/min >60 [facility] Comment on above: Non- GFR Calc Troponin I High Sensitivity 47 pg/mL 3.0-78.0 [facility] Comment on above: Please Note: New Arti t Units and Gender Specific Reference Ranges. For more information see Policy Stat Procedure [place] High Sensitivity Troponin (TNIH) and attachments. RBC Auto (Bld) [#/Vol]Ordere d By: Jr Thomas on 04-24-2023 RBC (Bld) [#/Vol] 3.36 10*6/uL 4.6-6.2 [facility] Serum or plasma calcium elmira urement (mass/volume)Ordered By: Jr Thomas on 04-24-2023 Calcium [Mass/Vol] 9.3 mg/dL 8.5-10.1 [facility] Serum or plasma creatinine m easurement (mass/volume)Ordered By: Jr Thomas on 04-24-2023 Creatinine [Mass/Vol] 2.00 mg/dL 0.70-1.30 [facility] Comment on above: The validity of the calculated GFR & GFRAA in patients over 70 years has not been determined. Clinical correlation is essential. Serum or plasma urea nitroge n measurement (mass/volume)Ordered By: Jr Thomas on 04-24-2023 Urea nitrogen [Mass/Vol] 43 mg/dL 7-18 [facility] Thin prep Papanicolaou smear with manual screeningOrdered By: Jr Thomas on 04-24-2023 Thin prep Papanicolaou smear with manual screening 4 5-15 [facility] .Auto Diffon 04-13-2023 Basophil, Absolute 0.1 10 3/mcL Normal 0.0-0.2 [facility] ([place]) Comment on above: Performed By: #### D SUMNA, PBNP, CBC, ADIFF, ANEU, TSH, CMP, GFR ####[address] [place], [place] [address] Basophils/100 WBC (Bld) 1.0 % Normal 0.0-2.5 [facility] ([place]) Comment on above: Performed By: #### D SUMAN, PBNP, CBC, ADIFF, ANEU, TSH, CMP, GFR ####[address] [place], [place] [address] Eosinophil, Absolute 0.4 10 3/mcL Normal 0.0-0.4 [facility] ([place]) Comment on above: Performed By: #### D SUMAN, PBNP, CBC, ADIFF, ANEU, TSH, CMP, GFR ####[address] [place], [place] [address] Eosinophils/100 WBC (Bld) 5.5 % Normal 0.0-7.0 [facility] ([place]) Comment on above: Performed By: #### D SUMAN, PBNP, CBC, ADIFF, ANEU, TSH, CMP, GFR ####[address] [place], [place] [address] Lymphocyte, Absolute 1.2 10 3/mcL Normal 0.8-3.9 [facility] ([place]) Comment on above: Performed By: #### D SUMAN, PBNP, CBC, ADIFF, ANEU, TSH, CMP, GFR ####[address] [place], [place] [address] Lymphocytes/100 WBC (Bld) 19.1 % Normal 10.0-50.0 [facility] ([place]) Comment on above: Performed By: #### D SUMAN, PBNP, CBC, ADIFF, ANEU, TSH, CMP, GFR ####[address] [place], [place] [address] Monocyte, Absolute 0.5 10 3/mcL Normal 0.2-1.0 [facility] ([place]) Comment on above: Performed By: #### D SUMAN, PBNP, CBC, ADIFF, ANEU, TSH, CMP, GFR ####[address] [place], [place] [address] Monocytes/100 WBC (Bld) 7.4 % Normal 1.7-13.0 [facility] ([place]) Comment on above: Performed By: #### D SUMAN, PBNP, CBC, ADIFF, ANEU, TSH, CMP, GFR ####[address] [place], [place] [address] Neutrophils/100 WBC (Bld) 67.0 % Normal 37.0-80.0 [facility] ([place]) Comment on above: Performed By: #### D SUMAN, PBNP, CBC, ADIFF, ANEU, TSH, CMP, GFR ####[address] [place], [place] [address] .GFRon 04-13-2023 GFR 38 ml/min/1.73sqm [facility] ([place]) Comment on above: Result Comment: GFR Population [...] CBC, ADIFF, ANEU, TSH, CMP, GFR ####[address] [place], [place] [address] GFR Non- 32 ml/min/1.73sqm [facility] ([place]) Comment on above: Result Comment: GFR Population [...] ADIFF, ANEU, TSH, CMP, GFR ####[address] [place], [place] [address] .NEUABSon 04-13-2023 Neutrophil, Absolute 4.3 10 3/mcL Normal 2.9-6.2 [facility] ([place]) Comment on above: Performed By: #### Cole SUMAN, PBNP, CBC, ADIFF, ANEU, TSH, CMP, GFR ####[address] [place], [place] [address] CBCon 04-13-2023 Erythrocyte distribution width (RBC) [Ratio] 16.3 % High 11.5-14.5 [facility] ([place]) Comment on above: Order Comment: STAT Performed By: #### Cole SUMAN, PBNP, CBC, ADIFF, ANEU, TSH, CMP, GFR ####[address] [place], [place] [address] Hematocrit (Bld) [Volume fraction] 28.8 % Low 42.0-52.0 [facility] ([place]) Comment on above: Order Comment: STAT Performed By: #### Cole SUMAN, PBNP, CBC, ADIFF, ANEU, TSH, CMP, GFR ####[address] [place], [place] [address] Hgb 9.6 G/dL Low 14.0-18.0 [facility] ([place]) Comment on above: Order Comment: STAT Performed By: ###Ramesh Galvan SUMAN, PBNP, CBC, ADIFF, ANEU, TSH, CMP, GFR ####[address] [place], [place] [address] MCH (RBC) [Entitic mass] 28.1 pg Normal 27.0-31.2 [facility] ([place]) Comment on above: Order Comment: STAT Performed By: #### D SUMAN, PBNP, CBC, ADIFF, ANEU, TSH, CMP, GFR ####[address] [place], [place] [address] MCHC 33.4 G/dL Normal 31.8-35.4 [facility] ([place]) Comment on above: Order Comment: STAT Performed By: #### D SUMAN, PBNP, CBC, ADIFF, ANEU, TSH, CMP, GFR ####[address] [place], [place] [address] MCV (RBC) [Entitic vol] 84.1 fL Normal 80.0-94.0 [facility] ([place]) Comment on above: Order Comment: STAT Performed By: #### Cole SUMAN, PBNP, CBC, ADIFF, ANEU, TSH, CMP, GFR ####[address] [place], [place] [address] Platelet 119 10 3/mcL Low 130-400 [facility] ([place]) Comment on above: Order Comment: STAT Performed By: #### Cole SUMAN, PBNP, CBC, ADIFF, ANEU, TSH, CMP, GFR ####[address] [place], [place] [address] Platelet mean volume (Bld) [Entitic vol] 8.3 fL Normal 7.4-10.4 [facility] ([place]) Comment on above: Order Comment: STAT Performed By: #### Cole SUMAN, PBNP, CBC, ADIFF, ANEU, TSH, CMP, GFR ####[address] [place], [place] [address] RBC 3.42 10 6/mcL Low 4.04-6.13 [facility] ([place]) Comment on above: Order Comment: STAT Performed By: #### Cole SUMAN, PBNP, CBC, ADIFF, ANEU, TSH, CMP, GFR ####[address] [place], [place] [address] WBC 6.4 10 3/mcL Normal 4.6-10.8 [facility] ([place]) Comment on above: Order Comment: STAT Performed By: #### D SUAMN, PBNP, CBC, ADIFF, ANEU, TSH, CMP, GFR ####[address] [place], [place] [address] CMPon 04-13-2023 Albumin Level 3.5 G/dL Normal 3.4-4.8 [facility] ([place]) Comment on above: Order Comment: STAT Performed By: #### D SUMAN, PBNP, CBC, ADIFF, ANEU, TSH, CMP, GFR ####[address] [place], [place] [address] Albumin/Globulin [Mass ratio] 1.0 {ratio} Low 1.1-2.5 [facility] ([place]) Comment on above: Order Comment: STAT Performed By: #### D SUMAN, PBNP, CBC, ADIFF, ANEU, TSH, CMP, GFR ####[address] [place], [place] [address] ALP [Catalytic activity/Vol] 93 U/L Normal 40-135 [facility] ([place]) Comment on above: Order Comment: STAT Performed By: #### D SUMAN, PBNP, CBC, ADIFF, ANEU, TSH, CMP, GFR ####[address] [place], [place] [address] ALT [Catalytic activity/Vol] 20 U/L Normal 16-63 [facility] ([place]) Comment on above: Order Comment: STAT Performed By: #### D SUMAN, PBNP, CBC, ADIFF, ANEU, TSH, CMP, GFR ####[address] [place], [place] [address] AST [Catalytic activity/Vol] 20 U/L Normal 10-40 [facility] ([place]) Comment on above: Order Comment: STAT Performed By: #### D SUMAN, PBNP, CBC, ADIFF, ANEU, TSH, CMP, GFR ####[address] [place], [place] [address] Bili Total 0.7 mg/dL Normal 0.2-1.0 [facility] ([place]) Comment on above: Order Comment: STAT Result Comment: Use of this assay is not recommended for patients undergoing treatment with eltrombopag due to the potential for falsely elevated results. Performed By: #### D SUMAN, PBNP, CBC, ADIFF, ANEU, TSH, CMP, GFR ####[address] [place], [place] [address] BUN/Creatinine Ratio 30 ratio High 7-27 [facility] ([place]) Comment on above: Order Comment: STAT Performed By: #### D SUMAN, PBNP, CBC, ADIFF, ANEU, TSH, CMP, GFR ####[address] [place], [place] [address] Calcium [Mass/Vol] 9.5 mg/dL Normal 8.4-10.2 [facility] ([place]) Comment on above: Order Comment: STAT Performed By: #### D SUMAN, PBNP, CBC, ADIFF, ANEU, TSH, CMP, GFR ####[address] [place], [place] [address] Chloride [Moles/Vol] 100 mmol/L Normal 98-107 [facility] ([place]) Comment on above: Order Comment: STAT Performed By: #### D SUMAN, PBNP, CBC, ADIFF, ANEU, TSH, CMP, GFR ####[address] [place], [place] [address] CO2 [Moles/Vol] 36 mmol/L High 23-31 [facility] ([place]) Comment on above: Order Comment: STAT Performed By: #### D SUMAN, PBNP, CBC, ADIFF, ANEU, TSH, CMP, GFR ####[address] [place], [place] [address] Creatinine [Mass/Vol] 2.03 mg/dL High 0.70-1.30 [facility] ([place]) Comment on above: Order Comment: STAT Performed By: #### D SUMAN, PBNP, CBC, ADIFF, ANEU, TSH, CMP, GFR ####[address] [place], [place] [address] Electrolyte Balance 7.0 mEq/L Normal 4.0-15.0 [facility] ([place]) Comment on above: Order Comment: STAT Performed By: #### D SUMAN, PBNP, CBC, ADIFF, ANEU, TSH, CMP, GFR ####[address] [place], [place] [address] Globulin 3.6 G/dL Normal [facility] ([place]) Comment on above: Order Comment: STAT Performed By: #### D SUMAN, PBNP, CBC, ADIFF, ANEU, TSH, CMP, GFR ####[address] [place], [place] [address] Glucose [Mass/Vol] 151 mg/dL High 83-110 [facility] ([place]) Comment on above: Order Comment: STAT Performed By: #### D SUMAN, PBNP, CBC, ADIFF, ANEU, TSH, CMP, GFR ####[address] [place], [place] [address] Potassium [Moles/Vol] 3.9 mmol/L Normal 3.5-5.1 [facility] ([place]) Comment on above: Order Comment: STAT Performed By: #### Cole SUMAN, PBNP, CBC, ADIFF, ANEU, TSH, CMP, GFR ####[address] [place], [place] [address] Sodium [Moles/Vol] 143 mmol/L Normal 136-145 [facility] ([place]) Comment on above: Order Comment: STAT Performed By: #### Cole SUMAN, PBNP, CBC, ADIFF, ANEU, TSH, CMP, GFR ####[address] [place], [place] [address] Total Protein 7.1 G/dL Normal 6.4-8.2 [facility] ([place]) Comment on above: Order Comment: STAT Performed By: #### D SUMAN, PBNP, CBC, ADIFF, ANEU, TSH, CMP, GFR ####[address] [place], [place] [address] Urea nitrogen [Mass/Vol] 60 mg/dL High 7-18 [facility] ([place]) Comment on above: Order Comment: STAT Performed By: #### D SUMAN, PBNP, CBC, ADIFF, ANEU, TSH, CMP, GFR ####[address] [place], [place] [address] DIMERon 04-13-2023 D-Dimer 290 ng/mL D-DU High 0-230 [facility] ([place]) Comment on above: Order Comment: STAT Result [...] CBC, ADIFF, ANEU, TSH, CMP, GFR ####[address] [place], [place] [address] LABORATORYOrdered By: SYSTEM SYSTEM on 04-13-2023 Albumin [...] B (Bld) [Mass/Vol] 1696 pg/mL High 0-450 [facility] ([place]) Comment on above: Order Comment: STAT Result Comment: NT-p roBNP results of less than 300 pg/mL effectivelyrules out acute congestive heart failure with 99% negative predictive value. Performed By: #### D SUMAN, PBNP, CBC, ADIFF, ANEU, TSH, CMP, GFR ####[address] [place], [place] [address] TSHon 04-13-2023 TSH Qn 2.44 m[IU]/L Normal 0.36-3.74 [facility] ([place]) Comment on above: Order Comment: STAT Performed By: #### D SUMAN, PBNP, CBC, ADIFF, ANEU, TSH, CMP, GFR ####[address] [place], [place] [address] Absolute lymphocyte countOrd ered By: Dimitry Lott on 04-07-2023 Lymphocytes Auto (Unsp spec) [#/Vol] 1.29 10*3/uL 0.83-4.51 [facility] Automated lymphocyte count a s percentage of total leukocytesOrdered By: Dimitry Lott on 04-07-2023 Lymphocytes/100 WBC Auto (Unsp spec) 22.1 % 19-41 [facility] Basophil percentageOrdered B y: Dimitry Lott on 04-07-2023 Basophils/100 WBC (Bld) 0.5 % 0-1 [facility] Chloride [Moles/Vol] 103 mmol/L 98-107 [facility] Eosinophils/100 WBC (Bld) 5.8 % 0-5 [facility] Glucose [Mass/Vol] 195 mg/dL 74-106 [facility] Comment on above: Fasting Glucose resu lt greater than or equal to 126 mg/dL suggests DIABETES MELLITUS per A.D.A. criteria. Hemoglobin (Bld) [Mass/Vol] 10.0 g/dL 13.0-16.5 [facility] Monocytes/100 WBC (Bld) 7.4 % 0-10 [facility] Neutrophils (Bld) [#/Vol] 3.7 10*3/uL 2.0-7.7 [facility] Neutrophils/100 WBC (Bld) 63.9 % 47-70 [facility] Potassium [Moles/Vol] 4.3 mmol/L 3.5-5.1 [facility] Sodium [Moles/Vol] 140 mmol/L 136-145 [facility] WBC (Bld) [#/Vol] 5.8 10*3/uL 4.4-11.0 [facility] Determination of erythrocyte mean corpuscular volume (MCV)Ordered By: Dimitry Lott on 04-07-2023 MCV (RBC) [Entitic vol] 89.3 fL 80-94 [facility] Erythrocyte distribution wid th ratioOrdered By: Dimitry Lott on 04-07-2023 Erythrocyte distribution width (RBC) [Ratio] 15.7 % 11.6-14.6 [facility] Erythrocyte distribution wid th standard deviationOrdered By: Dimitry Lott on 04-07-2023 Erythrocyte distribution width (RBC) [Entitic vol] 50.7 fL 35.1-43.9 [facility] Hematocrit Auto (Bld) [Volum e fraction]Ordered By: Dimitry Lott on 04-07-2023 Hematocrit (Bld) [Volume fraction] 32.4 % 40-54 [facility] Immature granulocytes/100 WB C Auto (Bld)Ordered By: Dimitry Lott on 04-07-2023 Immature granulocytes/100 WBC (Bld) 0.300 % 0.0-0.9 [facility] Comment on above: IG% - Immature Granu locytes (promyelocytes, myelocytes and metamyelocytes) > 1% indicates that a LEFT SHIFT is Present. Laboratory - Chemistry and C hemistry - challengeOrdered By: Dimitry Ltot on 04-07-2023 CO2 [Moles/Vol] 32.0 mmol/L 21.0-32.0 [facility] Urea nitrogen/Creatinine [Mass ratio] 21.7 mg/mg 10-20 [facility] Laboratory - Hematology and Cell countsOrdered By: Dimitry Lott on 04-07-2023 MCH (RBC) [Entitic mass] 27.5 pg 27.0-32.0 [facility] MCHC (RBC) [Mass/Vol] 30.9 g/dL 32-36 [facility] Nucleated RBC/100 WBC (Bld) [Ratio] 0 % 0-5 [facility] Platelets (Bld) [#/Vol] 110 10*3/uL 150-450 [facility] No Panel InformationOrdered By: Dimitry Lott on 04-07-2023 Estimated Creatinine Clearance Calc 26.68 ml/min [facility] Estimated GFR (MDRD) Amer 38 mL/min >60 [facility] Comment on above: GFR Calc Estimated GFR (MDRD) Non-Af Amer 31 mL/min >60 [facility] Comment on above: Non- GFR Calc Troponin I High Sensitivity 36 pg/mL 3.0-78.0 [facility] Comment on above: Please Note: New Arti t Units and Gender Specific Reference Ranges. For more information see Policy Stat Procedure [place] High Sensitivity Troponin (TNIH) and attachments. Platelet mean volume Pee-Ec ker (Bld) [Entitic vol]Ordered By: Dimitry Lott on 04-07-2023 Platelet mean volume (Bld) [Entitic vol] 11.0 fL 6.2-12.0 [facility] RBC Auto (Bld) [#/Vol]Ordere d By: Dimitry Lott on 04-07-2023 RBC (Bld) [#/Vol] 3.63 10*6/uL 4.6-6.2 [facility] Serum or plasma calcium elmira urement (mass/volume)Ordered By: Dimitry Lott on 04-07-2023 Calcium [Mass/Vol] 9.2 mg/dL 8.5-10.1 [facility] Serum or plasma creatinine m easurement (mass/volume)Ordered By: Dimitry Lott on 04-07-2023 Creatinine [Mass/Vol] 2.17 mg/dL 0.70-1.30 [facility] Comment on above: The validity of the calculated GFR & GFRAA in patients over 70 years has not been determined. Clinical correlation is essential. Serum or plasma urea nitroge n measurement (mass/volume)Ordered By: Dimitry Lott on 04-07-2023 Urea nitrogen [Mass/Vol] 47 mg/dL 7-18 [facility] Thin prep Papanicolaou smear with manual screeningOrdered By: Dimitry Lott on 04-07-2023 Thin prep Papanicolaou smear with manual screening 5 5-15 [facility] Thin prep Papanicolaou smear with manual screeningOrdered By: Fredy Joy on 04-02-2023 Thin prep Papanicolaou smear with manual screening 170 mg/dL 74-106 [facility] Comment on above: MANAGEMENT OF PATIEN T CARE PER NURSING PROTOCOL US RENALon 03-22-2023 US RENAL Normal [facility] ([place]) .Auto Diffon 03-21-2023 Basophil, Absolute 0.0 10 3/mcL Normal 0.0-0.2 [facility] ([place]) Comment on above: Performed By: #### G FR, CMP, ADIFF, CBC, ANEU ####[address] [place], [place] [address] Basophils/100 WBC (Bld) 0.8 % Normal 0.0-2.5 [facility] ([place]) Comment on above: Performed By: #### G FR, CMP, ADIFF, CBC, ANEU ####[address] [place], [place] [address] Eosinophil, Absolute 0.1 10 3/mcL Normal 0.0-0.4 [facility] ([place]) Comment on above: Performed By: #### G FR, CMP, ADIFF, CBC, ANEU ####[address] [place], [place] [address] Eosinophils/100 WBC (Bld) 1.4 % Normal 0.0-7.0 [facility] ([place]) Comment on above: Performed By: #### G FR, CMP, ADIFF, CBC, ANEU ####[address] [place], [place] [address] Lymphocyte, Absolute 1.3 10 3/mcL Normal 0.8-3.9 [facility] ([place]) Comment on above: Performed By: #### G FR, CMP, ADIFF, CBC, ANEU ####[address] [place], [place] [address] Lymphocytes/100 WBC (Bld) 25.8 % Normal 10.0-50.0 [facility] ([place]) Comment on above: Performed By: #### G FR, CMP, ADIFF, CBC, ANEU ####[address] [place], [place] [address] Monocyte, Absolute 0.4 10 3/mcL Normal 0.2-1.0 [facility] ([place]) Comment on above: Performed By: #### G FR, CMP, ADIFF, CBC, ANEU ####[address] [place], [place] [address] Monocytes/100 WBC (Bld) 8.6 % Normal 1.7-13.0 [facility] ([place]) Comment on above: Performed By: #### G FR, CMP, ADIFF, CBC, ANEU ####[address] [place], [place] [address] Neutrophils/100 WBC (Bld) 63.4 % Normal 37.0-80.0 [facility] ([place]) Comment on above: Performed By: #### G FR, CMP, ADIFF, CBC, ANEU ####[address] [place], [place] [address] .GFRon 03-21-2023 GFR Non- 29 ml/min/1.73sqm Normal [facility] ([place]) Comment on above: Result Comment: GFR Population [...] FR, CMP, ADIFF, CBC, ANEU ####[address] [place], [place] [address] GFR 35 ml/min/1.73sqm [facility] ([place] Comment on above: Result Comment: GFR Population [...] FR, CMP, ADIFF, CBC, ANEU ####[address] [place], [place] [address] .NEUABSon 03-21-2023 Neutrophil, Absolute 3.3 10 3/mcL Normal 2.9-6.2 [facility] ([place]) Comment on above: Performed By: #### G FR, CMP, ADIFF, CBC, ANEU ####[address] [place], [place] [address] CBCon 03-21-2023 Erythrocyte distribution width (RBC) [Ratio] 17.4 % High 11.5-14.5 [facility] ([place] Comment on above: Performed By: #### G FR, CMP, ADIFF, CBC, ANEU ####[address] [place], [place] [address] Hematocrit (Bld) [Volume fraction] 31.1 % Low 42.0-52.0 [facility] ([place] Comment on above: Performed By: #### G FR, CMP, ADIFF, CBC, ANEU ####[address] [place], [place] [address] Hgb 10.3 G/dL Low 14.0-18.0 [facility] ([place] Comment on above: Performed By: #### G FR, CMP, ADIFF, CBC, ANEU ####[address] [place], [place] [address] MCH (RBC) [Entitic mass] 27.8 pg Normal 27.0-31.2 [facility] ([place] Comment on above: Performed By: #### G FR, CMP, ADIFF, CBC, ANEU ####[address] [place], [place] [address] MCHC 33.0 G/dL Normal 31.8-35.4 [facility] ([place] Comment on above: Performed By: #### G FR, CMP, ADIFF, CBC, ANEU ####K[address] [place], [place] [address] MCV (RBC) [Entitic vol] 84.1 fL Normal 80.0-94.0 [facility] ([place]) Comment on above: Performed By: #### G FR, CMP, ADIFF, CBC, ANEU ####[address] [place], [place] [address] Platelet 136 10 3/mcL Normal 130-400 [facility] ([place] Comment on above: Performed By: #### G FR, CMP, ADIFF, CBC, ANEU ####[address] [place], [place] [address] Platelet mean volume (Bld) [Entitic vol] 8.4 fL Normal 7.4-10.4 [facility] ([place] Comment on above: Performed By: #### G FR, CMP, ADIFF, CBC, ANEU ####[address] [place], [place] [address] RBC 3.70 10 6/mcL Low 4.04-6.13 [facility] ([place] Comment on above: Performed By: #### G FR, CMP, ADIFF, CBC, ANEU ####[address] [place], [place] [address] WBC 5.2 10 3/mcL Normal 4.6-10.8 [facility] ([place] Comment on above: Performed By: #### G FR, CMP, ADIFF, CBC, ANEU ####[address] [place], [place] [address] CMPon 03-21-2023 Albumin Level 3.4 G/dL Normal 3.4-4.8 [facility] ([place] Comment on above: Performed By: #### G FR, CMP, ADIFF, CBC, ANEU ####[address] [place], [place] [address] Albumin/Globulin [Mass ratio] 1.0 {ratio} Low 1.1-2.5 [facility] ([place] Comment on above: Performed By: #### G FR, CMP, ADIFF, CBC, ANEU ####[address] [place], [place] [address] ALP [Catalytic activity/Vol] 85 U/L Normal 40-135 [facility] ([place] Comment on above: Performed By: #### G FR, CMP, ADIFF, CBC, ANEU ####[address] [place], [place] [address] ALT [Catalytic activity/Vol] 37 U/L Normal 16-63 [facility] ([place] Comment on above: Performed By: #### G FR, CMP, ADIFF, CBC, ANEU ####[address] [place], [place] [address] AST [Catalytic activity/Vol] 28 U/L Normal 10-40 [facility] ([place] Comment on above: Performed By: #### G FR, CMP, ADIFF, CBC, ANEU ####[address] [place], [place] [address] Bili Total 0.7 mg/dL Normal 0.2-1.0 [facility] ([place] Comment on above: Result Comment: Use of this assay is not recommended for patients undergoing treatment with eltrombopag due to the potential for falsely elevated results. Performed By: #### G FR, CMP, ADIFF, CBC, ANEU ####[address] [place], [place] [address] BUN/Creatinine Ratio 21 ratio Normal 7-27 [facility] ([place]) Comment on above: Performed By: #### G FR, CMP, ADIFF, CBC, ANEU ####[address] [place], [place] [address] Calcium [Mass/Vol] 9.2 mg/dL Normal 8.4-10.2 [facility] ([place]) Comment on above: Performed By: #### G FR, CMP, ADIFF, CBC, ANEU ####[address] [place], [place] [address] Chloride [Moles/Vol] 101 mmol/L Normal 98-107 [facility] ([place]) Comment on above: Performed By: #### G FR, CMP, ADIFF, CBC, ANEU ####[address] [place], [place] [address] CO2 [Moles/Vol] 31 mmol/L Normal 23-31 [facility] ([place] Comment on above: Performed By: #### G FR, CMP, ADIFF, CBC, ANEU ####[address] [place], [place] [address] Creatinine [Mass/Vol] 2.20 mg/dL High 0.70-1.30 [facility] ([place]) Comment on above: Performed By: #### G FR, CMP, ADIFF, CBC, ANEU ####[address] [place], [place] [address] Electrolyte Balance 10.0 mEq/L Normal 4.0-15.0 [facility] ([place]) Comment on above: Performed By: #### G FR, CMP, ADIFF, CBC, ANEU ####[address] [place], [place] [address] Globulin 3.5 G/dL Normal [facility] ([place] Comment on above: Performed By: #### G FR, CMP, ADIFF, CBC, ANEU ####[address] [place], [place] [address] Glucose [Mass/Vol] 150 mg/dL High 83-110 [facility] ([place]) Comment on above: Performed By: #### G FR, CMP, ADIFF, CBC, ANEU ####[address] [place], [place] [address] Potassium [Moles/Vol] 4.4 mmol/L Normal 3.5-5.1 [facility] ([place]) Comment on above: Performed By: #### G FR, CMP, ADIFF, CBC, ANEU ####[address] [place], [place] [address] Sodium [Moles/Vol] 142 mmol/L Normal 136-145 [facility] ([place]) Comment on above: Performed By: #### G FR, CMP, ADIFF, CBC, ANEU ####[address] [place], [place] [address] Total Protein 6.9 G/dL Normal 6.4-8.2 [facility] ([place] Comment on above: Performed By: #### G FR, CMP, ADIFF, CBC, ANEU ####[address] [place], [place] [address] Urea nitrogen [Mass/Vol] 47 mg/dL High 7-18 [facility] ([place] Comment on above: Performed By: #### G FR, CMP, ADIFF, CBC, ANEU ####[address] [place], [place] [address] Absolute lymphocyte countOrd ered By: Fred Ramos on 03-09-2023 Lymphocytes Auto (Unsp spec) [#/Vol] 1.07 10*3/uL 0.83-4.51 [facility] Basophil percentageOrdered B y: Fred Ramos on 03-09-2023 Basophils/100 WBC (Bld) 0.5 % 0-1 [facility] Chloride [Moles/Vol] 110 mmol/L 98-107 [facility] Eosinophils/100 WBC (Bld) 5.8 % 0-5 [facility] Glucose [Mass/Vol] 123 mg/dL 74-106 [facility] Comment on above: Fasting Glucose resu lt from 100 to 125 mg/dL suggests IMPAIRED HOMEOSTASIS per A.D.A. criteria. Neutrophils (Bld) [#/Vol] 2.4 10*3/uL 2.0-7.7 [facility] Neutrophils/100 WBC (Bld) 57.7 % 47-70 [facility] Potassium [Moles/Vol] 4.3 mmol/L 3.5-5.1 [facility] Sodium [Moles/Vol] 143 mmol/L 136-145 [facility] WBC (Bld) [#/Vol] 4.2 10*3/uL 4.4-11.0 [facility] Blood erythrocytes count (nu mber/volume)Ordered By: Fred Ramos on 03-09-2023 RBC (Bld) [#/Vol] 3.44 10*6/uL 4.6-6.2 [facility] Blood hemoglobin measurement (mass/volume)Ordered By: Fred Ramos on 03-09-2023 Hemoglobin (Bld) [Mass/Vol] 9.3 g/dL 13.0-16.5 [facility] Blood lymphocytes/100 leukoc ytesOrdered By: Fred Ramos on 03-09-2023 Lymphocytes/100 WBC (Bld) 25.7 % 19-41 [facility] Blood monocytes/100 leukocyt esOrdered By: Fred Ramos on 03-09-2023 Monocytes/100 WBC (Bld) 9.8 % 0-10 [facility] Blood platelet mean volumeOr dered By: Fred Ramos on 03-09-2023 Platelet mean volume (Bld) [Entitic vol] 11.1 fL 6.2-12.0 [facility] Clostridioides difficile nuc leic acid assay by PCROrdered By: Fred Ramos on 03-09-2023 C. difficile DNA JOSH+probe Ql (Unsp spec) [facility] Clostridium difficile detect ion by polymerase chain reactionOrdered By: Fred Ramos on 03-09-2023 C. difficile DNA JOSH+probe Ql (Unsp spec) [facility] Determination of erythrocyte mean corpuscular volume (MCV)Ordered By: Fred Ramos on 03-09-2023 MCV (RBC) [Entitic vol] 87.8 fL 80-94 [facility] Glucose Glucometer (dC) [M ass/Vol]Ordered By: Fred Ramos on 03-09-2023 Glucose [Mass/Vol] 167 mg/dL 74-106 [facility] Comment on above: MANAGEMENT OF PATIEN T CARE PER NURSING PROTOCOL Hematocrit Auto (Bld) [Volum e fraction]Ordered By: Fred Ramos on 12-29-2023 Hematocrit (Bld) [Volume fraction] 30.2 % 40-54 [facility] Laboratory - Chemistry and C hemistry - challengeOrdered By: Fred Ramos on 03-09-2023 CO2 [Moles/Vol] 28.0 mmol/L 21.0-32.0 [facility] Urea nitrogen/Creatinine [Mass ratio] 26.2 mg/mg 10-20 [facility] Laboratory - Hematology and Cell countsOrdered By: Fred Ramos on 03-09-2023 Erythrocyte distribution width (RBC) [Entitic vol] 55.2 fL 35.1-43.9 [facility] Erythrocyte distribution width (RBC) [Ratio] 17.4 % 11.6-14.6 [facility] Immature granulocytes/100 WBC (Bld) 0.500 % 0.0-0.9 [facility] Comment on above: IG% - Immature Granu locytes (promyelocytes, myelocytes and metamyelocytes) > 1% indicates that a LEFT SHIFT is Present. MCH (RBC) [Entitic mass] 27.0 pg 27.0-32.0 [facility] Nucleated RBC/100 WBC (Bld) [Ratio] 0 % 0-5 [facility] MCHC Auto (RBC) [Mass/Vol]Or dered By: Fred Ramos on 03-09-2023 MCHC (RBC) [Mass/Vol] 30.8 g/dL 32-36 [facility] No Panel InformationOrdered By: Fred Ramos on 03-09-2023 Estimated Creatinine Clearance Calc 25.49 ml/min [facility] Estimated GFR (MDRD) Amer 43 mL/min >60 [facility] Comment on above: GFR Calc Estimated GFR (MDRD) Non-Af Amer 36 mL/min >60 [facility] Comment on above: Non- GFR Calc Platelets bldOrdered By: Alana Ramos on 03-09-2023 Platelets (Bld) [#/Vol] 108 10*3/uL 150-450 [facility] Serum or plasma calcium elmira urement (mass/volume)Ordered By: Fred Ramos on 03-09-2023 Calcium [Mass/Vol] 9.5 mg/dL 8.5-10.1 [facility] Serum or plasma creatinine m easurement (mass/volume)Ordered By: Fred Ramos on 03-09-2023 Creatinine [Mass/Vol] 1.91 mg/dL 0.70-1.30 [facility] Comment on above: The validity of the calculated GFR & GFRAA in patients over 70 years has not been determined. Clinical correlation is essential. Serum or plasma urea nitroge n measurement (mass/volume)Ordered By: Fred Ramos on 03-09-2023 Urea nitrogen [Mass/Vol] 50 mg/dL 7-18 [facility] Stool enteric pathogen panel by probe and target amplification methodOrdered By: Fred Ramos on 03-09-2023 Gastrointestinal pathogens panel JOSH+probe (Stl) [facility] Gastrointestinal pathogens panel JOSH+probe (Stl) [facility] Thin prep Papanicolaou smear with manual screeningOrdered By: Fred Ramos on 03-09-2023 Thin prep Papanicolaou smear with manual screening 5 5-15 [facility] Blood manual differential co mment interpretation (narrative result)Ordered By: Romario Blancas on 03-08-2023 Manual differential comment Ric (Bld) [Interp] SCANNED [facility] Comment on above: MODERATE DECREASED T HROMBOCYTOPENIA Giardia lamblia ag stool EIA Ordered By: Fred Ramos on 03-08-2023 G. lamblia Ag IA Ql (Stl) Negative Negative [facility] Comment on above: Performed at: [address] [id number] Director: Tanmay Damon PhD, Phone: [phone] Absolute lymphocyte countOrd ered By: Eric Lester on 03-07-2023 Lymphocytes Auto (Unsp spec) [#/Vol] 1.02 10*3/uL 0.83-4.51 [facility] Basophil percentageOrdered B y: Eric Lester on 03-07-2023 Basophils/100 WBC (Bld) 0.2 % 0-1 [facility] Chloride [Moles/Vol] 107 mmol/L 98-107 [facility] Eosinophils/100 WBC (Bld) 2.5 % 0-5 [facility] Glucose [Mass/Vol] 223 mg/dL 74-106 [facility] Comment on above: Glucose result great er than or equal to 200 mg/dLsuggests DIABETES MELLITUS per A.D.A. criteria. Neutrophils (Bld) [#/Vol] 2.6 10*3/uL 2.0-7.7 [facility] Neutrophils/100 WBC (Bld) 63.7 % 47-70 [facility] Potassium [Moles/Vol] 4.2 mmol/L 3.5-5.1 [facility] Sodium [Moles/Vol] 143 mmol/L 136-145 [facility] WBC (Bld) [#/Vol] 4.0 10*3/uL 4.4-11.0 [facility] Blood erythrocytes count (nu mber/volume)Ordered By: Eric Lester on 03-07-2023 RBC (Bld) [#/Vol] 2.70 10*6/uL 4.6-6.2 [facility] Blood hemoglobin measurement (mass/volume)Ordered By: Eric Lester on 03-07-2023 Hemoglobin (Bld) [Mass/Vol] 7.5 g/dL 13.0-16.5 [facility] Blood lymphocytes/100 leukoc ytesOrdered By: Eric Lester on 03-07-2023 Lymphocytes/100 WBC (Bld) 25.2 % 19-41 [facility] Blood monocytes/100 leukocyt esOrdered By: Eric Lester on 03-07-2023 Monocytes/100 WBC (Bld) 8.2 % 0-10 [facility] Blood platelet mean volumeOr dered By: Eric Lester on 03-07-2023 Platelet mean volume (Bld) [Entitic vol] 11.9 fL 6.2-12.0 [facility] Determination of erythrocyte mean corpuscular volume (MCV)Ordered By: Eric Lester on 03-07-2023 MCV (RBC) [Entitic vol] 90.7 fL 80-94 [facility] Hematocrit Auto (Bld) [Volum e fraction]Ordered By: Eric Lester on 03-07-2023 Hematocrit (Bld) [Volume fraction] 24.5 % 40-54 [facility] Influenza virus A and B and SARS-CoV-2 (COVID-19) Ag panel - Upper respiratory specimOrdered By: Eric Lester on 03-07-2023 SARS-CoV-2 (COVID-19) RNA JOSH+probe Ql (Resp) [facility] Laboratory - Chemistry and C hemistry - challengeOrdered By: Eric Lester on 03-07-2023 CO2 [Moles/Vol] 29.0 mmol/L 21.0-32.0 [facility] Natriuretic peptide B (Bld) [Mass/Vol] 78.3 pg/mL 0-100 [facility] Urea nitrogen/Creatinine [Mass ratio] 28.8 mg/mg 10-20 [facility] Laboratory - Hematology and Cell countsOrdered By: Eric Lester on 03-07-2023 Erythrocyte distribution width (RBC) [Entitic vol] 55.5 fL 35.1-43.9 [facility] Erythrocyte distribution width (RBC) [Ratio] 17.1 % 11.6-14.6 [facility] Immature granulocytes/100 WBC (Bld) 0.200 % 0.0-0.9 [facility] Comment on above: IG% - Immature Granu locytes (promyelocytes, myelocytes and metamyelocytes) > 1% indicates that a LEFT SHIFT is Present. MCH (RBC) [Entitic mass] 27.8 pg 27.0-32.0 [facility] Nucleated RBC/100 WBC (Bld) [Ratio] 0 % 0-5 [facility] Lower GI hemoglobin IA Ql (S tl)Ordered By: Eric Lester on 03-07-2023 Stool Occult Blood (CLARY) Positive [facility] MCHC Auto (RBC) [Mass/Vol]Or dered By: Eric Lester on 03-07-2023 MCHC (RBC) [Mass/Vol] 30.6 g/dL 32-36 [facility] No Panel InformationOrdered By: Eric Lester on 03-07-2023 Estimated Creatinine Clearance Calc 18.24 ml/min [facility] Estimated GFR (MDRD) Amer 30 mL/min >60 [facility] Comment on above: GFR Calc Estimated GFR (MDRD) Non-Af Amer 24 mL/min >60 [facility] Comment on above: Non- GFR Calc Troponin I High Sensitivity 34 pg/mL 3.0-78.0 [facility] Comment on above: Please Note: New Arti t Units and Gender Specific Reference Ranges. For more information see Policy Stat Procedure [place] High Sensitivity Troponin (TNIH) and attachments. Platelets bldOrdered By: Sky Lester on 03-07-2023 Platelets (Bld) [#/Vol] 107 10*3/uL 150-450 [facility] Serum or plasma calcium elmira urement (mass/volume)Ordered By: Eric Lester on 03-07-2023 Calcium [Mass/Vol] 9.1 mg/dL 8.5-10.1 [facility] Serum or plasma creatinine m easurement (mass/volume)Ordered By: Eric Lester on 03-07-2023 Creatinine [Mass/Vol] 2.67 mg/dL 0.70-1.30 [facility] Comment on above: The validity of the calculated GFR & GFRAA in patients over 70 years has not been determined. Clinical correlation is essential. Serum or plasma urea nitroge n measurement (mass/volume)Ordered By: Eric Lester on 03-07-2023 Urea nitrogen [Mass/Vol] 77 mg/dL 7-18 [facility] Thin prep Papanicolaou smear with manual screeningOrdered By: Eric Lester on 03-07-2023 Thin prep Papanicolaou smear with manual screening 7 5-15 [facility] Upper respiratory specimen i nfluenza A virus, influenza B virus, and severe acute resOrdered By: Eric Lester on 03-07-2023 Upper respiratory specimen influenza A virus, influenza B virus, and severe acute res [facility] Upper respiratory specimen i nfluenza A virus, influenza B virus, and severe acute respiratory syndromOrdered By: Eric Lester on 03-07-2023 Upper respiratory specimen influenza A virus, influenza B virus, and severe acute respiratory syndrom [facility] .Auto Diffon 02-28-2023 Basophil, Absolute 0.0 10 3/mcL Normal 0.0-0.2 [facility] ([place]) Comment on above: Performed By: #### G FR, CMP, ANEU, URIC, ADIFF, CBC ####[address] [place], [place] [address] Basophils/100 WBC (Bld) 0.4 % Normal 0.0-2.5 [facility] ([place]) Comment on above: Performed By: #### G FR, CMP, ANEU, URIC, ADIFF, CBC ####[address] [place], [place] [address] Eosinophil, Absolute 0.2 10 3/mcL Normal 0.0-0.4 [facility] ([place] Comment on above: Performed By: #### G FR, CMP, ANEU, URIC, ADIFF, CBC ####Katie [address] [place], [place] [address] Eosinophils/100 WBC (Bld) 2.4 % Normal 0.0-7.0 [facility] ([place] Comment on above: Performed By: #### G FR, CMP, ANEU, URIC, ADIFF, CBC ####Katie [address] [place], [place] [address] Lymphocyte, Absolute 1.1 10 3/mcL Normal 0.8-3.9 [facility] ([place] Comment on above: Performed By: #### G FR, CMP, ANEU, URIC, ADIFF, CBC ####Katie [address] [place], [place] [address] Lymphocytes/100 WBC (Bld) 16.1 % Normal 10.0-50.0 [facility] ([place] Comment on above: Performed By: #### G FR, CMP, ANEU, URIC, ADIFF, CBC ####[address] [place], [place] [address] Monocyte, Absolute 0.4 10 3/mcL Normal 0.2-1.0 [facility] ([place] Comment on above: Performed By: #### G FR, CMP, ANEU, URIC, ADIFF, CBC ####Katie [address] [place], [place] [address] Monocytes/100 WBC (Bld) 5.1 % Normal 1.7-13.0 [facility] ([place] Comment on above: Performed By: #### G FR, CMP, ANEU, URIC, ADIFF, CBC ####K[address] [place], [place] [address] Neutrophils/100 WBC (Bld) 76.0 % Normal 37.0-80.0 [facility] ([place] Comment on above: Performed By: #### G FR, CMP, ANEU, URIC, ADIFF, CBC ####[address] [place], [place] [address] .GFRon 02-28-2023 GFR 31 ml/min/1.73sqm Normal [facility] ([place] Comment on above: Result Comment: GFR Population [...] CMP, ANEU, URIC, ADIFF, CBC ####[address] [place], [place] [address] GFR Non- 26 ml/min/1.73sqm Normal [facility] ([place] Comment on above: Result Comment: GFR Population [...] CMP, ANEU, URIC, ADIFF, CBC ####[address] [place], [place] [address] .NEUABSon 02-28-2023 Neutrophil, Absolute 5.3 10 3/mcL Normal 2.9-6.2 [facility] ([place] Comment on above: Performed By: #### G FR, CMP, ANEU, URIC, ADIFF, CBC ####K[address] [place], [place] [address] CBCon 02-28-2023 Erythrocyte distribution width (RBC) [Ratio] 17.6 % High 11.5-14.5 [facility] ([place] Comment on above: Performed By: #### G FR, CMP, ANEU, URIC, ADIFF, CBC ####Katie [address] [place] [address] Hematocrit (Bld) [Volume fraction] 28.8 % Low 42.0-52.0 [facility] ([place] Comment on above: Performed By: #### G FR, CMP, ANEU, URIC, ADIFF, CBC ####[address] [place] [address] Hgb 9.2 G/dL Low 14.0-18.0 [facility] ([place] Comment on above: Performed By: #### G FR, CMP, ANEU, URIC, ADIFF, CBC ####Katie [address] [place] [address] MCH (RBC) [Entitic mass] 26.7 pg Low 27.0-31.2 [facility] ([place] Comment on above: Performed By: #### G FR, CMP, ANEU, URIC, ADIFF, CBC ####Katie [address] [place] [address] MCHC 32.0 G/dL Normal 31.8-35.4 [facility] ([place] Comment on above: Performed By: #### G FR, CMP, ANEU, URIC, ADIFF, CBC ####Katie [address] [place] [id number] MCV (RBC) [Entitic vol] 83.5 fL Normal 80.0-94.0 [facility] ([place] Comment on above: Performed By: #### G FR, CMP, ANEU, URIC, ADIFF, CBC ####[address] [place], [place] [address] Platelet 91 10 3/mcL Low 130-400 [facility] ([place] Comment on above: Performed By: #### G FR, CMP, ANEU, URIC, ADIFF, CBC ####Katie [address] [place], [place] [address] Platelet mean volume (Bld) [Entitic vol] 9.9 fL Normal 7.4-10.4 [facility] ([place] Comment on above: Performed By: #### G FR, CMP, ANEU, URIC, ADIFF, CBC ####Katie [address] [place], [place] [address] RBC 3.45 10 6/mcL Low 4.04-6.13 [facility] ([place] Comment on above: Performed By: #### G FR, CMP, ANEU, URIC, ADIFF, CBC ####Katie [address] [place], [place] [address] WBC 7.0 10 3/mcL Normal 4.6-10.8 [facility] ([place] Comment on above: Performed By: #### G FR, CMP, ANEU, URIC, ADIFF, CBC ####Katie [address] [place], [place] [address] CMPon 02-28-2023 Albumin Level 3.2 G/dL Low 3.4-4.8 [facility] ([place] Comment on above: Performed By: #### G FR, CMP, ANEU, URIC, ADIFF, CBC ####Katie [address] [place], [place] [address] Albumin/Globulin [Mass ratio] 1.0 {ratio} Low 1.1-2.5 [facility] ([place] Comment on above: Performed By: #### G FR, CMP, ANEU, URIC, ADIFF, CBC ####[address] [place], [place] [address] ALP [Catalytic activity/Vol] 72 U/L Normal 40-135 [facility] ([place] Comment on above: Performed By: #### G FR, CMP, ANEU, URIC, ADIFF, CBC ####Katie [address] [place], [place] [address] ALT [Catalytic activity/Vol] 50 U/L Normal 16-63 [facility] ([place] Comment on above: Performed By: #### G FR, CMP, ANEU, URIC, ADIFF, CBC ####[address] [place], [place] [address] AST [Catalytic activity/Vol] 18 U/L Normal 10-40 [facility] ([place] Comment on above: Performed By: #### G FR, CMP, ANEU, URIC, ADIFF, CBC ####Katie [address] [place], [place] [address] Bili Total 1.0 mg/dL Normal 0.2-1.0 [facility] ([place] Comment on above: Result Comment: Use of this assay is not recommended for patients undergoing treatment with eltrombopag due to the potential for falsely elevated results. Performed By: #### G FR, CMP, ANEU, URIC, ADIFF, CBC ####Katie [address] [place], [place] [address] BUN/Creatinine Ratio 30 ratio High 7-27 [facility] ([place] Comment on above: Performed By: #### G FR, CMP, ANEU, URIC, ADIFF, CBC ####Katie [address] [place], [place] [address] Calcium [Mass/Vol] 9.4 mg/dL Normal 8.4-10.2 [facility] ([place] Comment on above: Performed By: #### G FR, CMP, ANEU, URIC, ADIFF, CBC ####Katie [address] [place], [place] [address] Chloride [Moles/Vol] 103 mmol/L Normal 98-107 [facility] ([place] Comment on above: Performed By: #### G FR, CMP, ANEU, URIC, ADIFF, CBC ####Katie [address] [place], [place] [address] CO2 [Moles/Vol] 30 mmol/L Normal 23-31 [facility] ([place] Comment on above: Performed By: #### G FR, CMP, ANEU, URIC, ADIFF, CBC ####[address] [place], [place] [address] Creatinine [Mass/Vol] 2.42 mg/dL High 0.70-1.30 [facility] ([place]) Comment on above: Performed By: #### G FR, CMP, ANEU, URIC, ADIFF, CBC ####[address] [place], [place] [address] Electrolyte Balance 9.0 mEq/L Normal 4.0-15.0 [facility] ([place] Comment on above: Performed By: #### G FR, CMP, ANEU, URIC, ADIFF, CBC ####[address] [place], [place] [address] Globulin 3.2 G/dL [facility] ([place] Comment on above: Performed By: #### G FR, CMP, ANEU, URIC, ADIFF, CBC ####[address] [place], [place] [address] Glucose [Mass/Vol] 173 mg/dL High 83-110 [facility] ([place] Comment on above: Performed By: #### G FR, CMP, ANEU, URIC, ADIFF, CBC ####[address] [place], [place] [address] Potassium [Moles/Vol] 4.8 mmol/L Normal 3.5-5.1 [facility] ([place] Comment on above: Performed By: #### G FR, CMP, ANEU, URIC, ADIFF, CBC ####[address] [place], [place] [address] Sodium [Moles/Vol] 142 mmol/L Normal 136-145 [facility] ([place]) Comment on above: Performed By: #### G FR, CMP, ANEU, URIC, ADIFF, CBC ####[address] [place], [place] [address] Total Protein 6.4 G/dL Normal 6.4-8.2 [facility] ([place]) Comment on above: Performed By: #### G FR, CMP, ANEU, URIC, ADIFF, CBC ####[address] [place], [place] [address] Urea nitrogen [Mass/Vol] 73 mg/dL High 7-18 [facility] ([place] Comment on above: Performed By: #### G FR, CMP, ANEU, URIC, ADIFF, CBC ####[address] [place], [place] [address] LABORATORYOrdered By: SYSTEM SYSTEM on 02-28-2023 Albumin [...] Uric Acid Lvl 9.8 mg/dL High 3.5-7.2 [facility] ([place]) Comment on above: Performed By: #### G FR, CMP, ANEU, URIC, ADIFF, CBC ####[place] [address] [place] [address] SPEon 02-22-2023 SPE Interpretation Normal serum protein electrophoresis pattern. No abnormality detected. Normal [facility] ([place]) Comment on above: Result Comment: Elec tronically Signed by: MELONIE CERDA MD02/22/2023 12:24 EST Performed By: #### U JENNIFER, FERR, CBC, FES, ANEU, RFP, ADIFF, GFR, VIDH ####[place] [address]#### PTH, SPE ####[place] [address] Albumin 3.7 G/dL Normal 3.3-5.0 [facility] ([place] Comment on above: Performed By: #### U JENNIFER, FERR, CBC, FES, ANEU, RFP, ADIFF, GFR, VIDH ####[place] [address]#### PTH, SPE ####[place] [address] Alpha 1 0.2 G/dL Normal 0.1-0.4 [facility] ([place] Comment on above: Performed By: #### U JENNIFER, FERR, CBC, FES, ANEU, RFP, ADIFF, GFR, VIDH ####[place] [address]#### PTH, SPE ####[place] [address] Alpha 2 1.1 G/dL Normal 0.6-1.2 [facility] ([place] Comment on above: Performed By: #### U JENNIFER, FERR, CBC, FES, ANEU, RFP, ADIFF, GFR, VIDH ####[place] [address]#### PTH, SPE ####[place] [address] Beta 1.1 G/dL Normal 0.6-1.3 [facility] ([place] Comment on above: Performed By: #### U JENNIFER, FERR, CBC, FES, ANEU, RFP, ADIFF, GFR, VIDH ####[facility] [place], [place] [address]#### PTH, SPE ####[place] [address] Gamma 0.9 G/dL Normal 0.7-1.6 [facility] ([place] Comment on above: Performed By: #### U JENNIFER, FERR, CBC, FES, ANEU, RFP, ADIFF, GFR, VIDH ####[facility] [place] [address]#### PTH, SPE ####[place] [address] .Urinalysis Microscopic (AO) on 02-21-2023 UA RBC 0-5 Abnormal None Seen [facility] ([place] Comment on above: Performed By: #### U AMICAO, CRUR, UA, PRUR ####[address] [place], [place] [address] UA Squam Epithelial 0-5 Abnormal None Seen [facility] ([place]) Comment on above: Performed By: #### U AMICAO, CRUR, UA, PRUR ####[address] [place], [place] [address] UA WBC 0-5 Abnormal None Seen [facility] ([place] Comment on above: Performed By: #### U AMICAO, CRUR, UA, PRUR ####[address] [place], [place] [address] CRURon 02-21-2023 U Creatinine 71.9 mg/dL Normal 39.0-259.0 [facility] ([place] Comment on above: Performed By: #### U AMICAO, CRUR, UA, PRUR ####[address] [place], [place] [address] PRURon 02-21-2023 U Protein 19 mg/dL High 0-11 [facility] ([place] Comment on above: Performed By: #### U AMICAO, CRUR, UA, PRUR ####[address] [place], [place] [address] UAon 02-21-2023 Color (U) Yellow Normal [facility] ([place] Comment on above: Performed By: #### U AMICAO, CRUR, UA, PRUR ####[address] [place] [address] Glucose (U) [Mass/Vol] 500 mg/dL Abnormal Negative [facility] ([place]) Comment on above: Performed By: #### U AMICAO, CRUR, UA, PRUR ####[address] [place] [address] Ketones Ql (U) Negative Normal Negative [facility] ([place] Comment on above: Performed By: #### U AMICAO, CRUR, UA, PRUR ####[address] [place] [address] UA Appear Clear Normal Clear [facility] ([place] Comment on above: Performed By: #### U AMICAO, CRUR, UA, PRUR ####[address] [place], [place] [address] UA Blood Negative Normal Negative [facility] ([place] Comment on above: Performed By: #### U AMICAO, CRUR, UA, PRUR ####[address] [place], [place] [address] UA Leuk Est Negative Normal Negative [facility] ([place] Comment on above: Performed By: #### U AMICAO, CRUR, UA, PRUR ####[address] [place], [place] [address] UA Nitrite Negative Normal Negative [facility] ([place] Comment on above: Performed By: #### U AMICAO, CRUR, UA, PRUR ####[address] [place] [address] UA pH 5.5 Normal 5.0 - 8.0 [facility] ([place] Comment on above: Performed By: #### U AMICAO, CRUR, UA, PRUR ####[address] [place], [place] [address] UA Protein 30 mg/dL Normal Negative [facility] ([place] Comment on above: Performed By: #### U AMICAO, CRUR, UA, PRUR ####[address] [place], [place] [address] UA Spec Grav 1.015 Normal 1.015-1.025 [facility] ([place] Comment on above: Performed By: #### U AMICAO, CRUR, UA, PRUR ####[address] [place], [place] [address] UA Specimen Type Not Given Normal [facility] ([place] Comment on above: Performed By: #### U AMICAO, CRUR, UA, PRUR ####[address] [place], [place] [address] UA Urobilinogen 0.2 E.U./dL Normal 0.2-1.0 [facility] ([place] Comment on above: Performed By: #### U AMICAO, CRUR, UA, PRUR ####[address] [place], [place] [address] Urobilinogen (U) [Mass/Vol] Negative Normal Negative [facility] ([place] Comment on above: Performed By: #### U AMICAO, CRUR, UA, PRUR ####[address] [place], [place] [address] .Auto Diffon 02-20-2023 Basophil, Absolute 0.0 10 3/mcL Normal 0.0-0.2 [facility] ([place]) Comment on above: Performed By: #### U JENNIFER, FERR, CBC, FES, ANEU, RFP, ADIFF, GFR, VIDH ####[place] [address]#### PTH, SPE ####[address] [address] Basophils/100 WBC (Bld) 0.3 % Normal 0.0-2.5 [facility] ([place]) Comment on above: Performed By: #### U JENNIFER, FERR, CBC, FES, ANEU, RFP, ADIFF, GFR, VIDH ####[place] [address]#### PTH, SPE ####[address] [address] Eosinophil, Absolute 0.2 10 3/mcL Normal 0.0-0.4 [facility] ([place]) Comment on above: Performed By: #### U JENNIFER, FERR, CBC, FES, ANEU, RFP, ADIFF, GFR, VIDH ####[place] [address]#### PTH, SPE ####[address] [address] Eosinophils/100 WBC (Bld) 1.7 % Normal 0.0-7.0 [facility] ([place]) Comment on above: Performed By: #### U JENNIFER, FERR, CBC, FES, ANEU, RFP, ADIFF, GFR, VIDH ####[place] [address]#### PTH, SPE ####[address] [address] Lymphocyte, Absolute 2.6 10 3/mcL Normal 0.8-3.9 [facility] ([place]) Comment on above: Performed By: #### U JENNIFER, FERR, CBC, FES, ANEU, RFP, ADIFF, GFR, VIDH ####[place] [address]#### PTH, SPE ####[address] [address] Lymphocytes/100 WBC (Bld) 17.8 % Normal 10.0-50.0 [facility] ([place] Comment on above: Performed By: #### U JENNIFER, FERR, CBC, FES, ANEU, RFP, ADIFF, GFR, VIDH ####[place] [address]#### PTH, SPE ####[place] [address] Monocyte, Absolute 0.9 10 3/mcL Normal 0.2-1.0 [facility] ([place]) Comment on above: Performed By: #### U JENNIFER, FERR, CBC, FES, ANEU, RFP, ADIFF, GFR, VIDH ####[address] [address]#### PTH, SPE ####[address] [address] Monocytes/100 WBC (Bld) 6.0 % Normal 1.7-13.0 [facility] ([place]) Comment on above: Performed By: #### U JENNIFER, FERR, CBC, FES, ANEU, RFP, ADIFF, GFR, VIDH ####[address] [address]#### PTH, SPE ####[address] [address] Neutrophils/100 WBC (Bld) 74.2 % Normal 37.0-80.0 [facility] ([place]) Comment on above: Performed By: #### U JENNIFER, FERR, CBC, FES, ANEU, RFP, ADIFF, GFR, VIDH ####[address] [address]#### PTH, SPE ####[address] [address] .GFRon 02-20-2023 GFR Non- 23 ml/min/1.73sqm Normal [facility] ([place]) Comment on above: Result Comment: GFR Population [...] CBC, FES, ANEU, RFP, ADIFF, GFR, VIDH ####[facility] [place] [id number]#### PTH, SPE ####[place] [address] GFR 27 ml/min/1.73sqm Normal [facility] ([place]) Comment on above: Result Comment: GFR Population [...] CBC, FES, ANEU, RFP, ADIFF, GFR, VIDH ####[facility] [place] [address]#### PTH, SPE ####[place] [address] .NEUABSon 02-20-2023 Neutrophil, Absolute 10.8 10 3/mcL High 2.9-6.2 A [facility] ([place]) Comment on above: Performed By: #### U JENNIFER, FERR, CBC, FES, ANEU, RFP, ADIFF, GFR, VIDH ####[facility] [place] [id number]#### PTH, SPE ####[place] [address] CBCon 02-20-2023 Erythrocyte distribution width (RBC) [Ratio] 17.0 % High 11.5-14.5 [facility] ([place] Comment on above: Performed By: #### U JENNIFER, FERR, CBC, FES, ANEU, RFP, ADIFF, GFR, VIDH ####[place] [address]#### PTH, SPE ####[place] [address] Hematocrit (Bld) [Volume fraction] 31.5 % Low 42.0-52.0 [facility] ([place] Comment on above: Performed By: #### U JENNIFER, FERR, CBC, FES, ANEU, RFP, ADIFF, GFR, VIDH ####[place] [address]#### PTH, SPE ####[place] [address] Hgb 10.2 G/dL Low 14.0-18.0 [facility] ([place] Comment on above: Performed By: #### U JENNIFER, FERR, CBC, FES, ANEU, RFP, ADIFF, GFR, VIDH ####[place] [address]#### PTH, SPE ####[place] [address] MCH (RBC) [Entitic mass] 26.5 pg Low 27.0-31.2 [facility] ([place] Comment on above: Performed By: #### U JENNIFER, FERR, CBC, FES, ANEU, RFP, ADIFF, GFR, VIDH ####[place] [address]#### PTH, SPE ####[place] [address] MCHC 32.4 G/dL Normal 31.8-35.4 [facility] ([place] Comment on above: Performed By: #### U JENNIFER, FERR, CBC, FES, ANEU, RFP, ADIFF, GFR, VIDH ####[place] [address]#### PTH, SPE ####[place] [address] MCV (RBC) [Entitic vol] 81.9 fL Normal 80.0-94.0 A [facility] ([place]) Comment on above: Performed By: #### U JENNIFER, FERR, CBC, FES, ANEU, RFP, ADIFF, GFR, VIDH ####[place] [address]#### PTH, SPE ####[place] [address] Platelet 165 10 3/mcL Normal 130-400 [facility] ([place] Comment on above: Performed By: #### U JENNIFER, FERR, CBC, FES, ANEU, RFP, ADIFF, GFR, VIDH ####[place] [address]#### PTH, SPE ####[place] [address] Platelet mean volume (Bld) [Entitic vol] 9.0 fL Normal 7.4-10.4 [facility] ([place] Comment on above: Performed By: #### U JENNIFER, FERR, CBC, FES, ANEU, RFP, ADIFF, GFR, VIDH ####[place] [address]#### PTH, SPE ####[place] [address] RBC 3.85 10 6/mcL Low 4.04-6.13 [facility] ([place] Comment on above: Performed By: #### U JENNIFER, FERR, CBC, FES, ANEU, RFP, ADIFF, GFR, VIDH ####[place] [address]#### PTH, SPE ####[place] [address] WBC 14.5 10 3/mcL High 4.6-10.8 [facility] ([place]) Comment on above: Performed By: #### U JENNIFER, FERR, CBC, FES, ANEU, RFP, ADIFF, GFR, VIDH ####[place] [address]#### PTH, SPE ####[place] [address] Jerica 02-20-2023 Ferritin [Mass/Vol] 27.0 ng/mL Normal 26.0-388.0 [facility] ([place]) Comment on above: Performed By: #### U JENNIFER, FERR, CBC, FES, ANEU, RFP, ADIFF, GFR, VIDH ####[place] [address]#### PTH, SPE ####[place] [address] FESon 02-20-2023 Iron [Mass/Vol] 60 ug/dL Low 65-175 [facility] ([place] Comment on above: Performed By: #### U JENNIFER, FERR, CBC, FES, ANEU, RFP, ADIFF, GFR, VIDH ####[place] [address]#### PTH, SPE ####[place] [address] Iron Sat 17 % Normal [facility] ([place] Comment on above: Performed By: #### U JENNIFER, FERR, CBC, FES, ANEU, RFP, ADIFF, GFR, VIDH ####[place] [address]#### PTH, SPE ####[place] [address] TIBC 349 mcg/dL Normal 250-450 [facility] ([place] Comment on above: Performed By: #### U JENNIFER, FERR, CBC, FES, ANEU, RFP, ADIFF, GFR, VIDH ####[place] [address]#### PTH, SPE ####[place] [address] LABORATORYOrdered By: SYSTEM SYSTEM on 02-20-2023 25-hydroxyvitamin [...] 02-20-2023 PTH, Intact 55.0 pg/mL Normal 18.5-88.0 [facility] ([place]) Comment on above: Performed By: #### U JENNIFER, FERR, CBC, FES, ANEU, RFP, ADIFF, GFR, VIDH ####[address] [place], [place] [address]#### PTH, SPE ####[address] [address] RFPon 02-20-2023 Albumin Level 3.6 G/dL Normal 3.4-4.8 [facility] ([place]) Comment on above: Performed By: #### U JENNIFER, FERR, CBC, FES, ANEU, RFP, ADIFF, GFR, VIDH ####[place] [address]#### PTH, SPE ####[address] [address] BUN/Creatinine Ratio 39 ratio High 7-27 [facility] ([place]) Comment on above: Performed By: #### U JENNIFER, FERR, CBC, FES, ANEU, RFP, ADIFF, GFR, VIDH ####[place] [address]#### PTH, SPE ####[address] [address] Calcium [Mass/Vol] 10.5 mg/dL High 8.4-10.2 [facility] ([place]) Comment on above: Performed By: #### U JENNIFER, FERR, CBC, FES, ANEU, RFP, ADIFF, GFR, VIDH ####[place] [address]#### PTH, SPE ####[address] [address] Chloride [Moles/Vol] 103 mmol/L Normal 98-107 [facility] ([place]) Comment on above: Performed By: #### U JENNIFER, FERR, CBC, FES, ANEU, RFP, ADIFF, GFR, VIDH ####[place] [address]#### PTH, SPE ####[place] [address] CO2 [Moles/Vol] 27 mmol/L Normal 23-31 [facility] ([place] Comment on above: Performed By: #### U JENNIFER, FERR, CBC, FES, ANEU, RFP, ADIFF, GFR, VIDH ####[place] [address]#### PTH, SPE ####[address] [address] Creatinine [Mass/Vol] 2.70 mg/dL High 0.70-1.30 [facility] ([place]) Comment on above: Performed By: #### U JENNIFER, FERR, CBC, FES, ANEU, RFP, ADIFF, GFR, VIDH ####[address] [address]#### PTH, SPE ####[address] [address] Electrolyte Balance 6.0 mEq/L Normal 4.0-15.0 [facility] ([place]) Comment on above: Performed By: #### U JENNIFER, FERR, CBC, FES, ANEU, RFP, ADIFF, GFR, VIDH ####[place] [address]#### PTH, SPE ####[address] [address] Glucose [Mass/Vol] 187 mg/dL High 83-110 [facility] ([place]) Comment on above: Performed By: #### U JENNIFER, FERR, CBC, FES, ANEU, RFP, ADIFF, GFR, VIDH ####[place] [address]#### PTH, SPE ####[address] [address] Phosphate [Mass/Vol] 4.3 mg/dL High 2.3-4.1 [facility] ([place]) Comment on above: Performed By: #### U JENNIFER, FERR, CBC, FES, ANEU, RFP, ADIFF, GFR, VIDH ####[place] [address]#### PTH, SPE ####[address] [address] Potassium [Moles/Vol] 3.9 mmol/L Normal 3.5-5.1 [facility] ([place]) Comment on above: Performed By: #### U JENNIFER, FERR, CBC, FES, ANEU, RFP, ADIFF, GFR, VIDH ####[place] [address]#### PTH, SPE ####[place] [address] Sodium [Moles/Vol] 136 mmol/L Normal 136-145 [facility] ([place]) Comment on above: Performed By: #### U JENNIFER, FERR, CBC, FES, ANEU, RFP, ADIFF, GFR, VIDH ####[place] [address]#### PTH, SPE ####[place] [address] Urea nitrogen [Mass/Vol] 105 mg/dL High 7-18 [facility] ([place]) Comment on above: Performed By: #### U JENNIFER, FERR, CBC, FES, ANEU, RFP, ADIFF, GFR, VIDH ####[place] [address]#### PTH, SPE ####[place] [address] SPEon 02-20-2023 Total Protein 7.0 G/dL Normal 5.7-8.2 [facility] ([place]) Comment on above: Result Comment: No te - New Reference Range in effect 19 Performed By: #### U JENNIFER, FERR, CBC, FES, ANEU, RFP, ADIFF, GFR, VIDH ####[place] [address]#### PTH, SPE ####[place] [address] URICon 02-20-2023 Uric Acid Lvl 10.9 mg/dL High 3.5-7.2 [facility] ([place]) Comment on above: Performed By: #### U JENNIFER, FERR, CBC, FES, ANEU, RFP, ADIFF, GFR, VIDH ####[place] [address]#### PTH, SPE ####[place] [address] VIDHon 02-20-2023 Vit. D 25-Hydroxy 47.5 ng/mL Normal [facility] ([place]) Comment on above: Result Comment: Inte rpretive Values Based on Total 25(OH) Vitamin D:Deficient <20 ng/mLInsufficient 20 - <30 ng/mLSufficient 30-100 ng/mL Performed By: #### U JENNIFER, FERR, CBC, FES, ANEU, RFP, ADIFF, GFR, VIDH ####[address] [place], [place] [address]#### PTH, SPE ####[address] [place] [address] Absolute lymphocyte countOrd ered By: Anthony Sosa on 02-15-2023 Lymphocytes Auto (Unsp spec) [#/Vol] 0.88 10*3/uL 0.83-4.51 [facility] Basophil percentageOrdered B y: Anthony Sosa on 02-15-2023 Basophils/100 WBC (Bld) 0.1 % 0-1 [facility] Eosinophils/100 WBC (Bld) 0.2 % 0-5 [facility] Neutrophils (Bld) [#/Vol] 7.7 10*3/uL 2.0-7.7 [facility] Neutrophils/100 WBC (Bld) 83.7 % 47-70 [facility] WBC (Bld) [#/Vol] 9.2 10*3/uL 4.4-11.0 [facility] Blood erythrocytes count (nu mber/volume)Ordered By: Anthony Sosa on 02-15-2023 RBC (Bld) [#/Vol] 2.97 10*6/uL 4.6-6.2 [facility] Blood hemoglobin measurement (mass/volume)Ordered By: Anthony Sosa on 02-15-2023 Hemoglobin (Bld) [Mass/Vol] 7.9 g/dL 13.0-16.5 [facility] Blood lymphocytes/100 leukoc ytesOrdered By: Anthony Sosa on 02-15-2023 Lymphocytes/100 WBC (Bld) 9.6 % 19-41 [facility] Blood monocytes/100 leukocyt esOrdered By: Anthony Sosa on 02-15-2023 Monocytes/100 WBC (Bld) 6.2 % 0-10 [facility] Blood platelet mean volumeOr dered By: Anthony Sosa on 02-15-2023 Platelet mean volume (Bld) [Entitic vol] 11.6 fL 6.2-12.0 [facility] Determination of erythrocyte mean corpuscular volume (MCV)Ordered By: Anthony Sosa on 02-15-2023 MCV (RBC) [Entitic vol] 87.2 fL 80-94 [facility] Glucose Glucometer (BldC) [M ass/Vol]Ordered By: Anthony Sosa on 02-15-2023 Glucose [Mass/Vol] 151 mg/dL 74-106 [facility] Comment on above: MANAGEMENT OF PATIEN T CARE PER NURSING PROTOCOL Hematocrit Auto (Bld) [Volum e fraction]Ordered By: Anthony Sosa on 02-15-2023 Hematocrit (Bld) [Volume fraction] 25.9 % 40-54 [facility] Iron measurement (mass/mass) Ordered By: Anthony Sosa on 02-15-2023 Iron (Unsp spec) [Mass/Mass] 105 ug/dL 65-175 [facility] Laboratory - Hematology and Cell countsOrdered By: Anthony oSsa on 02-15-2023 Erythrocyte distribution width (RBC) [Entitic vol] 46.3 fL 35.1-43.9 [facility] Erythrocyte distribution width (RBC) [Ratio] 14.6 % 11.6-14.6 [facility] Immature granulocytes/100 WBC (Bld) 0.200 % 0.0-0.9 [facility] Comment on above: IG% - Immature Granu locytes (promyelocytes, myelocytes and metamyelocytes) > 1% indicates that a LEFT SHIFT is Present. MCH (RBC) [Entitic mass] 26.6 pg 27.0-32.0 [facility] Nucleated RBC/100 WBC (Bld) [Ratio] 0 % 0-5 [facility] MCHC Auto (RBC) [Mass/Vol]Or dered By: Anthony Sosa on 02-15-2023 MCHC (RBC) [Mass/Vol] 30.5 g/dL 32-36 [facility] No Panel InformationOrdered By: Anthony Sosa on 02-15-2023 Total Iron Binding Capacity 315 ug/dL 250-450 [facility] Platelets bldOrdered By: Nimco Sosa on 02-15-2023 Platelets (Bld) [#/Vol] 128 10*3/uL 150-450 [facility] Serum or plasma ferritin latricia surement (mass/volume)Ordered By: Anthony Sosa on 02-15-2023 Ferritin [Mass/Vol] 15 ng/mL 26-388 [facility] Serum or plasma iron saturat ion measurement (mass fraction)Ordered By: Anthony Sosa on 02-15-2023 Iron saturation [Mass fraction] 33.3 % 15.0-55.0 [facility] Basophil percentageOrdered B y: Erika Amin on 02-14-2023 Basophil percentage 3.5 mg/dL 2.5-4.9 [facility] Bilirubin [Mass/Vol] 0.40 mg/dL 0.20-1.00 [facility] Comment on above: For patients on eltr ombopag therapy, use of Dimension [place] TBIL is not recommended. Chloride [Moles/Vol] 110 mmol/L 98-107 [facility] Glucose [Mass/Vol] 290 mg/dL 74-106 [facility] Comment on above: Glucose result great er than or equal to 200 mg/dLsuggests DIABETES MELLITUS per A.D.A. criteria. Lactate [Moles/Vol] 1.4 mmol/L 0.4-2.0 [facility] Potassium [Moles/Vol] 4.9 mmol/L 3.5-5.1 [facility] Protein [Mass/Vol] 6.2 g/dL 6.4-8.2 [facility] Sodium [Moles/Vol] 142 mmol/L 136-145 [facility] Blood manual differential co mment interpretation (narrative result)Ordered By: Erika Amin on 02-14-2023 Manual differential comment Ric (Bld) [Interp] SCANNED [facility] Comment on above: LYMPHOPENIA NOTED Laboratory - Chemistry and C hemistry - challengeOrdered By: Erika Amin on 02-14-2023 ALP [Catalytic activity/Vol] 55 U/L 45-117 [facility] ALT [Catalytic activity/Vol] 30 U/L 16-61 [facility] CO2 [Moles/Vol] 27.0 mmol/L 21.0-32.0 [facility] Globulin (S) [Mass/Vol] 3.4 g/dL 2.2-4.2 [facility] Magnesium [Mass/Vol] 2.0 mg/dL 1.6-2.6 [facility] Urea nitrogen/Creatinine [Mass ratio] 33.8 mg/mg 10-20 [facility] Laboratory - CoagulationOrde red By: Erika Amin on 02-14-2023 aPTT Coag (Bld) [Time] 246.2 s 24.1-36.2 [facility] Comment on above: CRITICAL VALUE VERIF IED. CALLED TO ICU [id number]/06/23 0736 Eli Ellis.RESULTS READ BACK BY SAME . No Panel InformationOrdered By: Erika Amin on 02-14-2023 Estimated Creatinine Clearance Calc 15.96 ml/min [facility] Estimated GFR (MDRD) Amer 25 mL/min >60 [facility] Comment on above: GFR Calc Estimated GFR (MDRD) Non-Af Amer 21 mL/min >60 [facility] Comment on above: Non- GFR Calc Thyroid Stimulating Hormone (TSH) 1.06 uIU/mL 0.358-3.74 [facility] D-Dimer Quantitative (PE/DVT) 0.55 FEU/ug/m 0.27-0.49 [facility] Comment on above: D-Dimer ELEVATED (>0 .49): Additional studies and clinicalassessments are indicated to conclude diagnosis of:Deep Vein Thrombosis (DVT) or Pulmonary Embolism (PE)CRITICAL VALUE VERIFIED. CALLED TO Maddie KOO RN ICU02/14/23 0046 Vitaliy Sharma.RESULTS READ BACK BY SAME. Serum or plasma albumin elmira urement (mass/volume)Ordered By: Erika Amin on 02-14-2023 Albumin [Mass/Vol] 2.8 g/dL 3.2-5.0 [facility] Serum or plasma albumin/glob ulin mass ratioOrdered By: Erika Amin on 02-14-2023 Albumin/Globulin [Mass ratio] 0.8 {ratio} 0.9-2.4 [facility] Serum or plasma calcium elmira urement (mass/volume)Ordered By: Erika Amin on 02-14-2023 Calcium [Mass/Vol] 8.1 mg/dL 8.5-10.1 [facility] Serum or plasma creatinine m easurement (mass/volume)Ordered By: Erika Amin on 02-14-2023 Creatinine [Mass/Vol] 3.05 mg/dL 0.70-1.30 [facility] Comment on above: The validity of the calculated GFR & GFRAA in patients over 70 years has not been determined. Clinical correlation is essential. Serum or plasma urea nitroge n measurement (mass/volume)Ordered By: Erika Amin on 02-14-2023 Urea nitrogen [Mass/Vol] 103 mg/dL 7-18 [facility] Comment on above: Critical Result(s) C alled at: 05:42:36 02/14/2023 by: VITALIY Avila RN ICU. Results read back by same. Thin prep Papanicolaou smear with manual screeningOrdered By: Erika Amin on 02-14-2023 Thin prep Papanicolaou smear with manual screening 11 U/L 15-37 [facility] Thin prep Papanicolaou smear with manual screening 5 5-15 [facility] Absolute lymphocyte countOrd ered By: Jr Thomas on 02-13-2023 Lymphocytes Auto (Unsp spec) [#/Vol] 1.03 10*3/uL 0.83-4.51 [facility] Basophil percentageOrdered B y: Jr Thomas on 02-13-2023 Basophil percentage 0 SEEN /hpf 0-5 [facility] Basophils/100 WBC (Bld) 0.1 % 0-1 [facility] Chloride [Moles/Vol] 108 mmol/L 98-107 [facility] Eosinophils/100 WBC (Bld) 3.2 % 0-5 [facility] Glucose [Mass/Vol] 258 mg/dL 74-106 [facility] Comment on above: Glucose result great er than or equal to 200 mg/dLsuggests DIABETES MELLITUS per A.D.A. criteria. Neutrophils (Bld) [#/Vol] 17.2 10*3/uL 2.0-7.7 [facility] Neutrophils/100 WBC (Bld) 83.1 % 47-70 [facility] Potassium [Moles/Vol] 4.0 mmol/L 3.5-5.1 [facility] Sodium [Moles/Vol] 143 mmol/L 136-145 [facility] WBC (Bld) [#/Vol] 20.7 10*3/uL 4.4-11.0 [facility] Bilirubin Test strip Ql (U)O rdered By: Jr Thomas on 02-13-2023 Bilirubin Ql (U) Negative Negative [facility] Blood erythrocytes count (nu mber/volume)Ordered By: Jr Thomas on 02-13-2023 RBC (Bld) [#/Vol] 3.48 10*6/uL 4.6-6.2 [facility] Blood hemoglobin measurement (mass/volume)Ordered By: Jr Thomas on 02-13-2023 Hemoglobin (Bld) [Mass/Vol] 9.3 g/dL 13.0-16.5 [facility] Blood lymphocytes/100 leukoc ytesOrdered By: Jr Thomas on 02-13-2023 Lymphocytes/100 WBC (Bld) 5.0 % 19-41 [facility] Blood manual differential co mment interpretation (narrative result)Ordered By: Jr Thomas on 02-13-2023 Manual differential comment Ric (Bld) [Interp] SCANNED [facility] Comment on above: AUTO DIFF [place] Blood monocytes/100 leukocyt esOrdered By: Jr Thomas on 02-13-2023 Monocytes/100 WBC (Bld) 8.3 % 0-10 [facility] Blood platelet mean volumeOr dered By: Jr Thomas on 02-13-2023 Platelet mean volume (Bld) [Entitic vol] 10.9 fL 6.2-12.0 [facility] Determination of erythrocyte mean corpuscular volume (MCV)Ordered By: Jr Thomas on 02-13-2023 MCV (RBC) [Entitic vol] 87.4 fL 80-94 [facility] Hematocrit Auto (Bld) [Volum e fraction]Ordered By: Jr Thomas on 02-13-2023 Hematocrit (Bld) [Volume fraction] 30.4 % 40-54 [facility] Ketones Test strip Ql (U)Ord ered By: Jr Thomas on 02-13-2023 Ketones Ql (U) Negative Negative [facility] Laboratory - Chemistry and C hemistry - challengeOrdered By: Jr Tohmas on 02-13-2023 CO2 [Moles/Vol] 29.0 mmol/L 21.0-32.0 [facility] Natriuretic peptide B (Bld) [Mass/Vol] 43.2 pg/mL 0-100 [facility] Urea nitrogen/Creatinine [Mass ratio] 32.2 mg/mg 10-20 [facility] Laboratory - Hematology and Cell countsOrdered By: Jr Thomas on 02-13-2023 Erythrocyte distribution width (RBC) [Entitic vol] 47.8 fL 35.1-43.9 [facility] Erythrocyte distribution width (RBC) [Ratio] 15.0 % 11.6-14.6 [facility] Immature granulocytes/100 WBC (Bld) 0.300 % 0.0-0.9 [facility] Comment on above: IG% - Immature Granu locytes (promyelocytes, myelocytes and metamyelocytes) > 1% indicates that a LEFT SHIFT is Present. MCH (RBC) [Entitic mass] 26.7 pg 27.0-32.0 [facility] Nucleated RBC/100 WBC (Bld) [Ratio] 0 % 0-5 [facility] Laboratory - Microbiology an d Antimicrobial susceptibilityOrdered By: Jr Thomas on 02-13-2023 Bacteria identified Cx Nom (Bld) No growth in 5 days. [facility] Bacteria identified Cx Nom (Bld) Staphylococcus epidermidis [facility] MCHC Auto (RBC) [Mass/Vol]Or dered By: Jr Thomas on 02-13-2023 MCHC (RBC) [Mass/Vol] 30.6 g/dL 32-36 [facility] Mucus LM Ql (Urine sed)Order ed By: Jr Thomas on 02-13-2023 Mucus Ql (Urine sed) 0 SEEN /hpf [facility] Nitrite Test strip Ql (U)Ord ered By: Jr Thomas on 02-13-2023 Nitrite Ql (U) Negative Negative [facility] No Panel InformationOrdered By: Jr Thomas on 02-13-2023 Bacteria Detection (PCR) Staphylococcus epidermidis [facility] Estimated Creatinine Clearance Calc 16.18 ml/min [facility] Estimated GFR (MDRD) Amer 26 mL/min >60 [facility] Comment on above: GFR Calc Estimated GFR (MDRD) Non-Af Amer 21 mL/min >60 [facility] Comment on above: Non- GFR Calc Troponin I High Sensitivity 46 pg/mL 3.0-78.0 [facility] Comment on above: Please Note: New Arti t Units and Gender Specific Reference Ranges. For more information see Policy Stat Procedure [place] High Sensitivity Troponin (TNIH) and attachments. Platelets bldOrdered By: Stan Thomas on 02-13-2023 Platelets (Bld) [#/Vol] 207 10*3/uL 150-450 [facility] Protein Test strip Ql (U)Ord ered By: Jr Thomas on 02-13-2023 Protein Ql (U) 30 mg/dl Negative [facility] Review by pathologistOrdered By: Jr Thomas on 02-13-2023 Pathologist review Ric (Unsp spec) [Interp] Elidia orr [facility] Pathologist review Ric (Unsp spec) [Interp] Reviewed [facility] Comment on above: Previous reported re sult: Elidia orr Edited by: OSCAR on 02/15/23:1121Neutrophilic leukocytosis.Normocytic anemia.Clinical correlation necessary.Daniel Romero M.D. 02/15/23 AMENDED REPORT 02/15/23 1121 PATH REV previously reported as: Elidia orr Serum or plasma calcium elmira urement (mass/volume)Ordered By: Jr Thomas on 02-13-2023 Calcium [Mass/Vol] 9.6 mg/dL 8.5-10.1 [facility] Serum or plasma creatinine m easurement (mass/volume)Ordered By: Jr Thomas on 02-13-2023 Creatinine [Mass/Vol] 3.01 mg/dL 0.70-1.30 [facility] Comment on above: The validity of the calculated GFR & GFRAA in patients over 70 years has not been determined. Clinical correlation is essential. Serum or plasma urea nitroge n measurement (mass/volume)Ordered By: Jr Thomas on 02-13-2023 Urea nitrogen [Mass/Vol] 97 mg/dL 7-18 [facility] Squamous epithelial cells de tection in urine sediment by light microscopyOrdered By: Jr Thomas on 02-13-2023 Epithelial cells.squamous LM Ql (Urine sed) 0 SEEN /hpf 0-5 [facility] Thin prep Papanicolaou smear with manual screeningOrdered By: Jr Thomas on 02-13-2023 Thin prep Papanicolaou smear with manual screening 6 5-15 [facility] Urine blood detectionOrdered By: Jr Thomas on 02-13-2023 RBC Ql (U) 10 /ul Negative [facility] RBC Ql (U) 0 SEEN /hpf 0-5 [facility] Urine clarityOrdered By: Stan Thomas on 02-13-2023 Clarity (U) Clear Clear [facility] Urine color determinationOrd ered By: Jr Thomas on 02-13-2023 Color (U) Yellow Yellow [facility] Urine glucose detectionOrder ed By: Jr Thomas on 02-13-2023 Glucose Ql (U) 1000 mg/dl Normal [facility] Urine leukocyte esterase det ection by dipstickOrdered By: Jr Thomas on 02-13-2023 Leukocyte esterase Test strip Ql (U) Negative Negative [facility] Urine pHOrdered By: Jr moreira on 02-13-2023 pH (U) 5.0 [pH] 5.0 - 8.0 [facility] Urine sediment bacteria coun t by microscopy (number/high power field)Ordered By: Jr Thomas on 02-13-2023 Bacteria LM.HPF (Urine sed) [#/Area] 0 /[HPF] None Seen [facility] Urine specific gravity measu rementOrdered By: Jr Thomas on 02-13-2023 Specific gravity (U) [Rel density] 1.015 1.002-1.030 [facility] Urobilinogen Auto test strip Ql (U)Ordered By: Jr Thomas on 02-13-2023 Urobilinogen Ql (U) Normal mg/dl Normal [facility] Absolute lymphocyte countOrd ered By: Dustyjonathan Yan on 02-08-2023 Lymphocytes Auto (Unsp spec) [#/Vol] 1.00 10*3/uL 0.83-4.51 [facility] Basophil percentageOrdered B y: Dusty Yan on 02-08-2023 Basophils/100 WBC (Bld) 0.4 % 0-1 [facility] Chloride [Moles/Vol] 108 mmol/L 98-107 [facility] Eosinophils/100 WBC (Bld) 5.7 % 0-5 [facility] Glucose [Mass/Vol] 120 mg/dL 74-106 [facility] Comment on above: Fasting Glucose resu lt from 100 to 125 mg/dL suggests IMPAIRED HOMEOSTASIS per A.D.A. criteria. Neutrophils (Bld) [#/Vol] 3.1 10*3/uL 2.0-7.7 [facility] Neutrophils/100 WBC (Bld) 65.4 % 47-70 [facility] Potassium [Moles/Vol] 4.8 mmol/L 3.5-5.1 [facility] Sodium [Moles/Vol] 143 mmol/L 136-145 [facility] WBC (Bld) [#/Vol] 4.7 10*3/uL 4.4-11.0 [facility] Blood erythrocytes count (nu mber/volume)Ordered By: Dusty Yan on 02-08-2023 RBC (Bld) [#/Vol] 2.79 10*6/uL 4.6-6.2 [facility] Blood hemoglobin measurement (mass/volume)Ordered By: Dusty Yan on 02-08-2023 Hemoglobin (Bld) [Mass/Vol] 7.3 g/dL 13.0-16.5 [facility] Blood lymphocytes/100 leukoc ytesOrdered By: Dusty Yan on 02-08-2023 Lymphocytes/100 WBC (Bld) 21.1 % 19-41 [facility] Blood monocytes/100 leukocyt esOrdered By: Dusty Yan on 02-08-2023 Monocytes/100 WBC (Bld) 7.2 % 0-10 [facility] Blood platelet mean volumeOr dered By: Dusty Yan on 02-08-2023 Platelet mean volume (Bld) [Entitic vol] 10.7 fL 6.2-12.0 [facility] Determination of erythrocyte mean corpuscular volume (MCV)Ordered By: Dusty Yan on 02-08-2023 MCV (RBC) [Entitic vol] 86.4 fL 80-94 [facility] Hematocrit Auto (Bld) [Volum e fraction]Ordered By: Dusty Yan on 02-08-2023 Hematocrit (Bld) [Volume fraction] 24.1 % 40-54 [facility] Laboratory - Chemistry and C hemistry - challengeOrdered By: Dusty Yan on 02-08-2023 CO2 [Moles/Vol] 31.0 mmol/L 21.0-32.0 [facility] Urea nitrogen/Creatinine [Mass ratio] 33.7 mg/mg 10-20 [facility] Laboratory - Hematology and Cell countsOrdered By: Dusty Yan on 02-08-2023 Erythrocyte distribution width (RBC) [Entitic vol] 46.3 fL 35.1-43.9 [facility] Erythrocyte distribution width (RBC) [Ratio] 14.9 % 11.6-14.6 [facility] Immature granulocytes/100 WBC (Bld) 0.200 % 0.0-0.9 [facility] Comment on above: IG% - Immature Granu locytes (promyelocytes, myelocytes and metamyelocytes) > 1% indicates that a LEFT SHIFT is Present. MCH (RBC) [Entitic mass] 26.2 pg 27.0-32.0 [facility] Nucleated RBC/100 WBC (Bld) [Ratio] 0 % 0-5 [facility] MCHC Auto (RBC) [Mass/Vol]Or dered By: Dusty Yan on 02-08-2023 MCHC (RBC) [Mass/Vol] 30.3 g/dL 32-36 [facility] No Panel InformationOrdered By: Dusty Yan on 02-08-2023 Estimated Creatinine Clearance Calc 16.91 ml/min [facility] Estimated GFR (MDRD) Amer 27 mL/min >60 [facility] Comment on above: GFR Calc Estimated GFR (MDRD) Non-Af Amer 22 mL/min >60 [facility] Comment on above: Non- GFR Calc Platelets bldOrdered By: Dusty Yan on 02-08-2023 Platelets (Bld) [#/Vol] 120 10*3/uL 150-450 [facility] Serum or plasma calcium elmira urement (mass/volume)Ordered By: Dusty Yan on 02-08-2023 Calcium [Mass/Vol] 9.3 mg/dL 8.5-10.1 [facility] Serum or plasma creatinine m easurement (mass/volume)Ordered By: Dusty Yan on 02-08-2023 Creatinine [Mass/Vol] 2.88 mg/dL 0.70-1.30 [facility] Comment on above: The validity of the calculated GFR & GFRAA in patients over 70 years has not been determined. Clinical correlation is essential. Serum or plasma urea nitroge n measurement (mass/volume)Ordered By: Dusty Yan on 02-08-2023 Urea nitrogen [Mass/Vol] 97 mg/dL 7-18 [facility] Thin prep Papanicolaou smear with manual screeningOrdered By: Dusty Yan on 02-08-2023 Thin prep Papanicolaou smear with manual screening 4 -15 [facility] .Auto Diffon 02-07-2023 Basophil, Absolute 0.0 10 3/mcL Normal 0.0-0.2 [facility] ([place]) Comment on above: Performed By: #### G FR, CBC, ANEU, ADIFF, BMP ####[address] [place], [place] [address] Basophils/100 WBC (Bld) 0.8 % Normal 0.0-2.5 [facility] ([place]) Comment on above: Performed By: #### G FR, CBC, ANEU, ADIFF, BMP ####[address] [place], [place] [address] Eosinophil, Absolute 0.3 10 3/mcL Normal 0.0-0.4 [facility] ([place]) Comment on above: Performed By: #### G FR, CBC, ANEU, ADIFF, BMP ####[address] [place], [place] [address] Eosinophils/100 WBC (Bld) 4.0 % Normal 0.0-7.0 [facility] ([place]) Comment on above: Performed By: #### G FR, CBC, ANEU, ADIFF, BMP ####[address] [place], [place] [address] Lymphocyte, Absolute 1.2 10 3/mcL Normal 0.8-3.9 [facility] ([place]) Comment on above: Performed By: #### G FR, CBC, ANEU, ADIFF, BMP ####[address] [place], [place] [address] Lymphocytes/100 WBC (Bld) 18.5 % Normal 10.0-50.0 [facility] ([place]) Comment on above: Performed By: #### G FR, CBC, ANEU, ADIFF, BMP ####[address] [place], [place] [address] Monocyte, Absolute 0.4 10 3/mcL Normal 0.2-1.0 [facility] ([place]) Comment on above: Performed By: #### G FR, CBC, ANEU, ADIFF, BMP ####[address] [place], [place] [address] Monocytes/100 WBC (Bld) 6.3 % Normal 1.7-13.0 [facility] ([place]) Comment on above: Performed By: #### G FR, CBC, ANEU, ADIFF, BMP ####[address] [place], [place] [address] Neutrophils/100 WBC (Bld) 70.4 % Normal 37.0-80.0 [facility] ([place]) Comment on above: Performed By: #### G FR, CBC, ANEU, ADIFF, BMP ####[address] [place], [place] [address] .GFRon 02-07-2023 GFR 27 ml/min/1.73sqm [facility] ([place]) Comment on above: Result Comment: GFR Population [...] FR, CBC, ANEU, ADIFF, BMP ####[address] [place], [place] [address] GFR Non- 22 ml/min/1.73sqm [facility] ([place]) Comment on above: Result Comment: GFR Population [...] FR, CBC, ANEU, ADIFF, BMP ####[address] [place], [place] [address] .NEUABSon 02-07-2023 Neutrophil, Absolute 4.6 10 3/mcL Normal 2.9-6.2 [facility] ([place]) Comment on above: Performed By: #### Jerrell FR, CBC, ANEU, ADIFF, BMP ####[address] [place], [place] [address] BMPon 02-07-2023 BUN/Creatinine Ratio 36 ratio High 7-27 [facility] ([place]) Comment on above: Performed By: #### Jerrell FR, CBC, ANEU, ADIFF, BMP ####[address] [place], [place] [address] Calcium [Mass/Vol] 9.0 mg/dL Normal 8.4-10.2 [facility] ([place]) Comment on above: Performed By: #### Jerrell FR, CBC, ANEU, ADIFF, BMP ####[address] [place], [place] [address] Chloride [Moles/Vol] 106 mmol/L Normal 98-107 [facility] ([place] Comment on above: Performed By: #### Jerrell FR, CBC, ANEU, ADIFF, BMP ####[address] [place], [place] [address] CO2 [Moles/Vol] 30 mmol/L Normal 23-31 [facility] ([place]) Comment on above: Performed By: #### G FR, CBC, ANEU, ADIFF, BMP ####[address] [place], [place] [address] Creatinine [Mass/Vol] 2.77 mg/dL High 0.70-1.30 [facility] ([place]) Comment on above: Performed By: #### G FR, CBC, ANEU, ADIFF, BMP ####[address] [place], [place] [address] Electrolyte Balance 7.0 mEq/L Normal 4.0-15.0 [facility] ([place]) Comment on above: Performed By: #### G FR, CBC, ANEU, ADIFF, BMP ####[address] [place], [place] [address] Glucose [Mass/Vol] 134 mg/dL High 83-110 [facility] ([place] Comment on above: Performed By: #### G FR, CBC, ANEU, ADIFF, BMP ####[address] [place], [place] [address] Potassium [Moles/Vol] 5.2 mmol/L High 3.5-5.1 [facility] ([place]) Comment on above: Performed By: #### G FR, CBC, ANEU, ADIFF, BMP ####[address] [place], [place] [address] Sodium [Moles/Vol] 143 mmol/L Normal 136-145 [facility] ([place] Comment on above: Performed By: #### G FR, CBC, ANEU, ADIFF, BMP ####[address] [place], [place] [address] Urea nitrogen [Mass/Vol] 99 mg/dL High 7-18 [facility] ([place] Comment on above: Performed By: #### G FR, CBC, ANEU, ADIFF, BMP ####[address] [place], [place] [address] CBCon 02-07-2023 Erythrocyte distribution width (RBC) [Ratio] 15.8 % High 11.5-14.5 [facility] ([place]) Comment on above: Performed By: #### G FR, CBC, ANEU, ADIFF, BMP ####[address] [place], [place] [address] Hematocrit (Bld) [Volume fraction] 24.2 % Low 42.0-52.0 [facility] ([place] Comment on above: Performed By: #### G FR, CBC, ANEU, ADIFF, BMP ####[address] [place], [place] [address] Hgb 7.8 G/dL Low 14.0-18.0 [facility] ([place] Comment on above: Performed By: #### Jerrell FR, CBC, ANEU, ADIFF, BMP ####[address] [place], [place] [address] MCH (RBC) [Entitic mass] 26.6 pg Low 27.0-31.2 [facility] ([place] Comment on above: Performed By: #### G FR, CBC, ANEU, ADIFF, BMP ####[address] [place], [place] [address] MCHC 32.0 G/dL Normal 31.8-35.4 [facility] ([place] Comment on above: Performed By: #### G FR, CBC, ANEU, ADIFF, BMP ####[address] [place], [place] [address] MCV (RBC) [Entitic vol] 83.0 fL Normal 80.0-94.0 [facility] ([place]) Comment on above: Performed By: #### Jerrell FR, CBC, ANEU, ADIFF, BMP ####[address] [place], [place] [address] Platelet 128 10 3/mcL Low 130-400 [facility] ([place]) Comment on above: Performed By: #### G FR, CBC, ANEU, ADIFF, BMP ####[address] [place], [place] [address] Platelet mean volume (Bld) [Entitic vol] 9.0 fL Normal 7.4-10.4 [facility] ([place]) Comment on above: Performed By: #### G FR, CBC, ANEU, ADIFF, BMP ####[address] [place], [place] [address] RBC 2.92 10 6/mcL Low 4.04-6.13 [facility] ([place]) Comment on above: Performed By: #### G FR, CBC, ANEU, ADIFF, BMP ####[address] [place], [place] [address] WBC 6.5 10 3/mcL Normal 4.6-10.8 [facility] ([place] Comment on above: Performed By: #### G FR, CBC, ANEU, ADDEE, BMP ####[address] [place], [place] [address] LABORATORYOrdered By: SYSTEM SYSTEM on 02-07-2023 Basophil, [...] SS .GFRon 02-02-2023 GFR 27 ml/min/1.73sqm [facility] ([place]) Comment on above: Result Comment: GFR Population [...] Performed By: #### C MP, GFR ####[address] [place], [place] [address] GFR Non- 22 ml/min/1.73sqm [facility] ([place] Comment on above: Result Comment: GFR Population [...] Performed By: #### C MP, GFR ####[address] [place], [place] [address] CMPon 02-02-2023 Albumin Level 3.4 G/dL Normal 3.4-4.8 [facility] ([place]) Comment on above: Performed By: #### C MP, GFR ####[address] [place], [place] [address] Albumin/Globulin [Mass ratio] 0.9 {ratio} Low 1.1-2.5 [facility] ([place]) Comment on above: Performed By: #### C MP, GFR ####[address] [place], [place] [address] ALP [Catalytic activity/Vol] 71 U/L Normal 40-135 [facility] ([place] Comment on above: Performed By: #### C MP, GFR ####[address] [place], [place] [address] ALT [Catalytic activity/Vol] 27 U/L Normal 16-63 [facility] ([place] Comment on above: Performed By: #### C MP, GFR ####[address] [place], [place] [address] AST [Catalytic activity/Vol] 17 U/L Normal 10-40 [facility] ([place] Comment on above: Performed By: #### C MP, GFR ####[address] [place], [place] [address] Bili Total 0.3 mg/dL Normal 0.2-1.0 [facility] ([place] Comment on above: Result Comment: Use of this assay is not recommended for patients undergoing treatment with eltrombopag due to the potential for falsely elevated results. Performed By: #### C MP, GFR ####[address] [place], [place] [address] BUN/Creatinine Ratio 34 ratio High 7-27 [facility] ([place] Comment on above: Performed By: #### C MP, GFR ####[address] [place], [place] [address] Calcium [Mass/Vol] 8.8 mg/dL Normal 8.4-10.2 [facility] ([place] Comment on above: Performed By: #### C MP, GFR ####[address] [place], [place] [address] Chloride [Moles/Vol] 106 mmol/L Normal 98-107 [facility] ([place] Comment on above: Performed By: #### C MP, GFR ####[address] [place], [place] [address] CO2 [Moles/Vol] 28 mmol/L Normal 23-31 [facility] ([place] Comment on above: Performed By: #### C MP, GFR ####[address] [place], [place] [address] Creatinine [Mass/Vol] 2.77 mg/dL High 0.70-1.30 [facility] ([place]) Comment on above: Performed By: #### C MP, GFR ####[address] [place], [place] [address] Electrolyte Balance 9.0 mEq/L Normal 4.0-15.0 [facility] ([place]) Comment on above: Performed By: #### C MP, GFR ####[address] [place], [place] [address] Globulin 3.8 G/dL [facility] ([place] Comment on above: Performed By: #### C MP, GFR ####[address] [place], [place] [address] Glucose [Mass/Vol] 123 mg/dL High 83-110 [facility] ([place] Comment on above: Performed By: #### C MP, GFR ####[address] [place], [place] [address] Potassium [Moles/Vol] 5.2 mmol/L High 3.5-5.1 [facility] ([place] Comment on above: Performed By: #### C MP, GFR ####[address] [place], [place] [address] Sodium [Moles/Vol] 143 mmol/L Normal 136-145 [facility] ([place] Comment on above: Performed By: #### C MP, GFR ####[address] [place], [place] [address] Total Protein 7.2 G/dL Normal 6.4-8.2 [facility] ([place] Comment on above: Performed By: #### C MP, GFR ####[address] [place], [place] [address] Urea nitrogen [Mass/Vol] 94 mg/dL High 7-18 [facility] ([place] Comment on above: Performed By: #### C MP, GFR ####[address] [place], [place] [address] LABORATORYOrdered By: Javier Vega on 02-02-2023 Albumin [...] 02-02-2023 U Creatinine 29.0 mg/dL Low 39.0-259.0 [facility] ([place] Comment on above: Performed By: #### M ALBR ####[address] [place], [place] [address] U Microalb 4585 mcg/dL Normal [facility] ([place] Comment on above: Performed By: #### M ALBR ####[address] [place], [place] [address] U Ratio Alb/Cre 158 mcg/mg High 0-30 [facility] ([place] Comment on above: Performed By: #### M ALBR ####[address] [place], [place] [address] .Auto Diffon 01-23-2023 Basophil, Absolute 0.1 10 3/mcL Normal 0.0-0.2 [facility] ([place] Comment on above: Performed By: #### C BC, ANEU, ADIFF, GFR, CMP ####[address] [place], [place] [address] Basophils/100 WBC (Bld) 1.0 % Normal 0.0-2.5 [facility] ([place]) Comment on above: Performed By: #### C BC, ANEU, ADIFF, GFR, CMP ####[address] [place], [place] [address] Eosinophil, Absolute 0.3 10 3/mcL Normal 0.0-0.4 [facility] ([place] Comment on above: Performed By: #### C BC, ANEU, ADIFF, GFR, CMP ####[address] [place], [place] [address] Eosinophils/100 WBC (Bld) 4.8 % Normal 0.0-7.0 [facility] ([place] Comment on above: Performed By: #### C BC, ANEU, ADIFF, GFR, CMP ####[address] [place], [place] [address] Lymphocyte, Absolute 1.2 10 3/mcL Normal 0.8-3.9 [facility] ([place] Comment on above: Performed By: #### C BC, ANEU, ADIFF, GFR, CMP ####[address] [place], [place] [address] Lymphocytes/100 WBC (Bld) 19.6 % Normal 10.0-50.0 [facility] ([place] Comment on above: Performed By: #### C BC, ANEU, ADIFF, GFR, CMP ####[address] [place], [place] [address] Monocyte, Absolute 0.5 10 3/mcL Normal 0.2-1.0 [facility] ([place] Comment on above: Performed By: #### C BC, ANEU, ADIFF, GFR, CMP ####[address] [place], [place] [address] Monocytes/100 WBC (Bld) 8.4 % Normal 1.7-13.0 [facility] ([place]) Comment on above: Performed By: #### C BC, ANEU, ADIFF, GFR, CMP ####[address] [place], [place] [address] Neutrophils/100 WBC (Bld) 66.2 % Normal 37.0-80.0 [facility] ([place]) Comment on above: Performed By: #### C BC, ANEU, ADIFF, GFR, CMP ####[address] [place], [place] [address] .GFRon 01-23-2023 GFR 27 ml/min/1.73sqm Normal [facility] ([place]) Comment on above: Result Comment: GFR [...] C BC, ANEU, ADIFF, GFR, CMP ####[address] [place], [place] [address] GFR Non- 22 ml/min/1.73sqm Normal [facility] ([place]) Comment on above: Result Comment: GFR [...] BC, ANEU, ADIFF, GFR, CMP ####[address] [place], [place] [address] .NEUABSon 01-23-2023 Neutrophil, Absolute 4.2 10 3/mcL Normal 2.9-6.2 [facility] ([place] Comment on above: Performed By: #### C BC, ANEU, ADIFF, GFR, CMP ####[address] [place], [place] [address] CBCon 01-23-2023 Erythrocyte distribution width (RBC) [Ratio] 14.9 % High 11.5-14.5 [facility] ([place] Comment on above: Performed By: #### C BC, ANEU, ADIFF, GFR, CMP ####[address] [place], [place] [address] Hematocrit (Bld) [Volume fraction] 26.9 % Low 42.0-52.0 [facility] ([place] Comment on above: Performed By: #### C BC, ANEU, ADIFF, GFR, CMP ####[address] [place], [place] [address] Hgb 8.7 G/dL Low 14.0-18.0 [facility] ([place] Comment on above: Performed By: #### C BC, ANEU, ADIFF, GFR, CMP ####[address] [place], [place] [address] MCH (RBC) [Entitic mass] 27.1 pg Normal 27.0-31.2 [facility] ([place] Comment on above: Performed By: #### C BC, ANEU, ADIFF, GFR, CMP ####Katie [address] [place], [place] [address] MCHC 32.4 G/dL Normal 31.8-35.4 [facility] [place] Comment on above: Performed By: #### C BC, ANEU, ADIFF, GFR, CMP ####Katie [address] [place], [place] [address] MCV (RBC) [Entitic vol] 83.6 fL Normal 80.0-94.0 [facility] ([place]) Comment on above: Performed By: #### C BC, ANEU, ADIFF, GFR, CMP ####Katie [address] [place], [place] [address] Platelet 130 10 3/mcL Normal 130-400 [facility] [place] Comment on above: Performed By: #### C BC, ANEU, ADIFF, GFR, CMP ####Katie [address] [place], [place] [address] Platelet mean volume (Bld) [Entitic vol] 9.0 fL Normal 7.4-10.4 [facility] [place] Comment on above: Performed By: #### C BC, ANEU, ADIFF, GFR, CMP ####Katie [address] [place], [place] [address] RBC 3.22 10 6/mcL Low 4.04-6.13 [facility] [place] Comment on above: Performed By: #### C BC, ANEU, ADIFF, GFR, CMP ####Katie [address] [place], [place] [address] WBC 6.4 10 3/mcL Normal 4.6-10.8 [facility] [place] Comment on above: Performed By: #### C BC, ANEU, ADIFF, GFR, CMP ####Katie [address] [place], [place] [address] CMPon 01-23-2023 Albumin Level 3.7 G/dL Normal 3.4-4.8 [facility] [place] Comment on above: Performed By: #### C BC, ANEU, ADIFF, GFR, CMP ####Katie [address] [place], [place] [address] Albumin/Globulin [Mass ratio] 1.0 {ratio} Low 1.1-2.5 [facility] [place] Comment on above: Performed By: #### C BC, ANEU, ADIFF, GFR, CMP ####[address] [place], [place] [address] ALP [Catalytic activity/Vol] 77 U/L Normal 40-135 [facility] [place] Comment on above: Performed By: #### C BC, ANEU, ADIFF, GFR, CMP ####[address] [place], [place] [address] ALT [Catalytic activity/Vol] 20 U/L Normal 16-63 [facility] [place] Comment on above: Performed By: #### C BC, ANEU, ADIFF, GFR, CMP ####[address] [place], [place] [address] AST [Catalytic activity/Vol] 13 U/L Normal 10-40 [facility] [place] Comment on above: Performed By: #### C BC, ANEU, ADIFF, GFR, CMP ####[address] [place], [place] [address] Bili Total 0.4 mg/dL Normal 0.2-1.0 [facility] [place] Comment on above: Result Comment: Use of this assay is not recommended for patients undergoing treatment with eltrombopag due to the potential for falsely elevated results. Performed By: #### C BC, ANEU, ADIFF, GFR, CMP ####[address] [place], [place] [address] BUN/Creatinine Ratio 22 ratio Normal 7-27 [facility] ([place] Comment on above: Performed By: #### C BC, ANEU, ADIFF, GFR, CMP ####[address] [place], [place] [address] Calcium [Mass/Vol] 9.2 mg/dL Normal 8.4-10.2 [facility] ([place] Comment on above: Performed By: #### C BC, ANEU, ADIFF, GFR, CMP ####[address] [place], [place] [address] Chloride [Moles/Vol] 105 mmol/L Normal 98-107 [facility] ([place] Comment on above: Performed By: #### C BC, ANEU, ADIFF, GFR, CMP ####K[address] [place], [place] [address] CO2 [Moles/Vol] 30 mmol/L Normal 23-31 [facility] [place] Comment on above: Performed By: #### C BC, ANEU, ADIFF, GFR, CMP ####K[address] [place], [place] [address] Creatinine [Mass/Vol] 2.76 mg/dL High 0.70-1.30 [facility] ([place]) Comment on above: Performed By: #### C BC, ANEU, ADIFF, GFR, CMP ####Katie [address] [place], [place] [address] Electrolyte Balance 9.0 mEq/L Normal 4.0-15.0 [facility] ([place] Comment on above: Performed By: #### C BC, ANEU, ADIFF, GFR, CMP ####Katie [address] [place], [place] [address] Globulin 3.7 G/dL Normal [facility] ([place] Comment on above: Performed By: #### C BC, ANEU, ADIFF, GFR, CMP ####K[address] [place], [place] [address] Glucose [Mass/Vol] 112 mg/dL High 83-110 [facility] ([place] Comment on above: Performed By: #### C BC, ANEU, ADIFF, GFR, CMP ####Katie [address] [place], [place] [address] Potassium [Moles/Vol] 4.8 mmol/L Normal 3.5-5.1 [facility] ([place] Comment on above: Performed By: #### C BC, ANEU, ADIFF, GFR, CMP ####[address] [place], [place] [address] Sodium [Moles/Vol] 144 mmol/L Normal 136-145 [facility] ([place] Comment on above: Performed By: #### C BC, ANEU, ADIFF, GFR, CMP ####Katie [address] [place], [place] [address] Total Protein 7.4 G/dL Normal 6.4-8.2 [facility] [place] Comment on above: Performed By: #### C BC, ANEU, ADIFF, GFR, CMP ####[address] [place], [place] [address] Urea nitrogen [Mass/Vol] 60 mg/dL High 7-18 [facility] ([place] Comment on above: Performed By: #### C BC, ANEU, ADIFF, GFR, CMP ####Katie [address] [place], [place] [address] .Auto Diffon 01-19-2023 Basophil, Absolute 0.1 10 3/mcL Normal 0.0-0.2 [facility] ([place] Comment on above: Performed By: #### C BC, ANEU, ADIFF, BMP, GFR ####Katie [address] [place], [place] [address] Basophils/100 WBC (Bld) 1.0 % Normal 0.0-2.5 [facility] ([place]) Comment on above: Performed By: #### C BC, ANEU, ADIFF, BMP, GFR ####[address] [place], [place] [address] Eosinophil, Absolute 0.3 10 3/mcL Normal 0.0-0.4 [facility] ([place] Comment on above: Performed By: #### C BC, ANEU, ADIFF, BMP, GFR ####Katie [address] [place], [place] [address] Eosinophils/100 WBC (Bld) 5.7 % Normal 0.0-7.0 [facility] ([place] Comment on above: Performed By: #### C BC, ANEU, ADIFF, BMP, GFR ####Katie [address] [place], [place] [address] Lymphocyte, Absolute 1.4 10 3/mcL Normal 0.8-3.9 [facility] ([place] Comment on above: Performed By: #### C BC, ANEU, ADIFF, BMP, GFR ####[address] [place], [place] [address] Lymphocytes/100 WBC (Bld) 24.7 % Normal 10.0-50.0 [facility] ([place]) Comment on above: Performed By: #### C BC, ANEU, ADIFF, BMP, GFR ####[address] [place], [place] [address] Monocyte, Absolute 0.5 10 3/mcL Normal 0.2-1.0 [facility] ([place] Comment on above: Performed By: #### C BC, ANEU, ADIFF, BMP, GFR ####[address] [place], [place] [address] Monocytes/100 WBC (Bld) 8.4 % Normal 1.7-13.0 [facility] ([place] Comment on above: Performed By: #### C BC, ANEU, ADIFF, BMP, GFR ####Katie [address] [place], [place] [address] Neutrophils/100 WBC (Bld) 60.2 % Normal 37.0-80.0 [facility] ([place] Comment on above: Performed By: #### C BC, ANEU, ADIFF, BMP, GFR ####[address] [place], [place] [address] .GFRon 01-19-2023 GFR Non- 26 ml/min/1.73sqm Normal [facility] ([place] Comment on above: Result Comment: GFR Population [...] C BC, ANEU, ADIFF, BMP, GFR ####Katie [address] [place], [place] [address] GFR 32 ml/min/1.73sqm Normal [facility] ([place] Comment on above: Result Comment: GFR Population [...] BC, ANEU, ADIFF, BMP, GFR ####[address] [place], [place] [address] .NEUABSon 01-19-2023 Neutrophil, Absolute 3.5 10 3/mcL Normal 2.9-6.2 [facility] ([place] Comment on above: Performed By: #### C BC, ANEU, ADIFF, BMP, GFR ####[address] [place], [place] [address] BMPon 01-19-2023 BUN/Creatinine Ratio 26 ratio Normal 7-27 [facility] ([place] Comment on above: Performed By: #### C BC, ANEU, ADIFF, BMP, GFR ####[address] [place], [place] [address] Calcium [Mass/Vol] 8.6 mg/dL Normal 8.4-10.2 [facility] ([place] Comment on above: Performed By: #### C BC, ANEU, ADIFF, BMP, GFR ####Katie [address] [place], [place] [address] Chloride [Moles/Vol] 106 mmol/L Normal 98-107 [facility] ([place] Comment on above: Performed By: #### C BC, ANEU, ADIFF, BMP, GFR ####Katie [address] [place], [place] [address] CO2 [Moles/Vol] 31 mmol/L Normal 23-31 [facility] ([place] Comment on above: Performed By: #### C BC, ANEU, ADIFF, BMP, GFR ####[address] [place], [place] [address] Creatinine [Mass/Vol] 2.39 mg/dL High 0.70-1.30 [facility] ([place]) Comment on above: Performed By: #### C BC, ANEU, ADIFF, BMP, GFR ####[address] [place], [place] [address] Electrolyte Balance 10.0 mEq/L Normal 4.0-15.0 [facility] ([place]) Comment on above: Performed By: #### C BC, ANEU, ADIFF, BMP, GFR ####Katie [address] [place], [place] [address] Glucose [Mass/Vol] 223 mg/dL High 83-110 [facility] ([place] Comment on above: Performed By: #### C BC, ANEU, ADIFF, BMP, GFR ####[address] [place], [place] [address] Potassium [Moles/Vol] 4.5 mmol/L Normal 3.5-5.1 [facility] ([place]) Comment on above: Performed By: #### C BC, ANEU, ADIFF, BMP, GFR ####[address] [place], [place] [address] Sodium [Moles/Vol] 147 mmol/L High 136-145 [facility] ([place] Comment on above: Performed By: #### C BC, ANEU, ADIFF, BMP, GFR ####[address] [place], [place] [address] Urea nitrogen [Mass/Vol] 62 mg/dL High 7-18 [facility] ([place] Comment on above: Performed By: #### C BC, ANEU, ADIFF, BMP, GFR ####[address] [place], [place] [address] CBCon 01-19-2023 Erythrocyte distribution width (RBC) [Ratio] 14.7 % High 11.5-14.5 [facility] ([place] Comment on above: Performed By: #### C BC, ANEU, ADIFF, BMP, GFR ####[address] [place], [place] [address] Hematocrit (Bld) [Volume fraction] 26.1 % Low 42.0-52.0 [facility] [place] Comment on above: Performed By: #### C BC, ANEU, ADIFF, BMP, GFR ####[address] [place], [place] [address] Hgb 8.4 G/dL Low 14.0-18.0 [facility] [place] Comment on above: Performed By: #### C BC, ANEU, ADIFF, BMP, GFR ####Katie [address] [place], [place] [address] MCH (RBC) [Entitic mass] 27.2 pg Normal 27.0-31.2 [facility] ([place] Comment on above: Performed By: #### C BC, ANEU, ADIFF, BMP, GFR ####[address] [place], [place] [address] MCHC 32.1 G/dL Normal 31.8-35.4 [facility] [place] Comment on above: Performed By: #### C BC, ANEU, ADIFF, BMP, GFR ####[address] [place], [place] [address] MCV (RBC) [Entitic vol] 84.6 fL Normal 80.0-94.0 [facility] ([place]) Comment on above: Performed By: #### C BC, ANEU, ADIFF, BMP, GFR ####[address] [place], [place] [address] Platelet 131 10 3/mcL Normal 130-400 [facility] ([place] Comment on above: Performed By: #### C BC, ANEU, ADIFF, BMP, GFR ####[address] [place], [place] [address] Platelet mean volume (Bld) [Entitic vol] 9.0 fL Normal 7.4-10.4 [facility] ([place] Comment on above: Performed By: #### C BC, ANEU, ADIFF, BMP, GFR ####Katie [address] [place], [place] [address] RBC 3.09 10 6/mcL Low 4.04-6.13 [facility] ([place] Comment on above: Performed By: #### C BC, ANEU, ADIFF, BMP, GFR ####[address] [place], [place] [address] WBC 5.7 10 3/mcL Normal 4.6-10.8 [facility] ([place] Comment on above: Performed By: #### C BC, ANEU, ADIFF, BMP, GFR ####[address] [place], [place] [address] LABORATORYOrdered By: Caroilne Ruiz on 01-19-2023 Cholesterol [Mass/Vol] 154 mg/dL [...] 01-19-2023 Cholesterol [Mass/Vol] 154 mg/dL Normal 0-200 [facility] ([place] Comment on above: Result Comment: Chol esterol Reference Interval:Less than 200 [id number] Borderline high [id number] and above High risk Performed By: #### L IPID ####Katie [address] [place], [place] [address] Cholesterol in HDL [Mass/Vol] 38 mg/dL Low 40-60 [facility] ([place] Comment on above: Performed By: #### L IPID ####Katie [address] [place], [place] [address] Cholesterol in LDL [Mass/Vol] 96 mg/dL Normal 0-130 [facility] ([place] Comment on above: Performed By: #### L IPID ####Katie [address] [place], [place] [address] Triglyceride [Mass/Vol] 100 mg/dL Normal 0-150 [facility] ([place]) Comment on above: Result Comment: Trig lyceride Reference Interval:Less than 150 [id number] Borderline high [id number] High [id number] or higher Very high risk Performed By: #### L IPID ####Katie [address] [place], [place] [address] Basophil percentageOrdered B y: Talya Nichols on 12-11-2022 Basophil percentage 4.4 mg/dL 2.5-4.9 [facility] Chloride [Moles/Vol] 107 mmol/L 98-107 [facility] Glucose [Mass/Vol] 160 mg/dL 74-106 [facility] Comment on above: Fasting Glucose resu lt greater than or equal to 126 mg/dL suggests DIABETES MELLITUS per A.D.A. criteria. Potassium [Moles/Vol] 4.2 mmol/L 3.5-5.1 [facility] Sodium [Moles/Vol] 141 mmol/L 136-145 [facility] WBC (Bld) [#/Vol] 4.4 10*3/uL 4.4-11.0 [facility] Blood erythrocytes count (nu mber/volume)Ordered By: Talya Nichols on 12-11-2022 RBC (Bld) [#/Vol] 3.00 10*6/uL 4.6-6.2 [facility] Blood hemoglobin measurement (mass/volume)Ordered By: Talya Nichols on 12-11-2022 Hemoglobin (Bld) [Mass/Vol] 9.0 g/dL 13.0-16.5 [facility] Blood platelet mean volumeOr dered By: Talya Nichols on 12-11-2022 Platelet mean volume (Bld) [Entitic vol] 12.2 fL 6.2-12.0 [facility] Determination of erythrocyte mean corpuscular volume (MCV)Ordered By: Talya Nichols on 12-11-2022 MCV (RBC) [Entitic vol] 95.7 fL 80-94 [facility] Hematocrit Auto (Bld) [Volum e fraction]Ordered By: Talya Nichols on 12-11-2022 Hematocrit (Bld) [Volume fraction] 28.7 % 40-54 [facility] Laboratory - Chemistry and C hemistry - challengeOrdered By: Talya Nichols on 12-11-2022 CO2 [Moles/Vol] 27.0 mmol/L 21.0-32.0 [facility] Urea nitrogen/Creatinine [Mass ratio] 30.2 mg/mg 10-20 [facility] Laboratory - Hematology and Cell countsOrdered By: Talya Nichols on 12-11-2022 Erythrocyte distribution width (RBC) [Entitic vol] 46.2 fL 35.1-43.9 [facility] Erythrocyte distribution width (RBC) [Ratio] 13.2 % 11.6-14.6 [facility] MCH (RBC) [Entitic mass] 30.0 pg 27.0-32.0 [facility] MCHC Auto (RBC) [Mass/Vol]Or dered By: Talya Nichols on 12-11-2022 MCHC (RBC) [Mass/Vol] 31.4 g/dL 32-36 [facility] No Panel InformationOrdered By: Talya Nichols on 12-11-2022 Estimated GFR (MDRD) Amer 31 mL/min >60 [facility] Comment on above: GFR Calc Estimated GFR (MDRD) Non-Af Amer 25 mL/min >60 [facility] Comment on above: Non- GFR Calc Platelets bldOrdered By: Oswaldo Nichols on 12-11-2022 Platelets (Bld) [#/Vol] 104 10*3/uL 150-450 [facility] Serum or plasma albumin elmira urement (mass/volume)Ordered By: Talya Nichols on 12-11-2022 Albumin [Mass/Vol] 3.0 g/dL 3.2-5.0 [facility] Serum or plasma calcium elmira urement (mass/volume)Ordered By: Talya Nichols on 12-11-2022 Calcium [Mass/Vol] 8.9 mg/dL 8.5-10.1 [facility] Serum or plasma creatinine m easurement (mass/volume)Ordered By: Talya Nichols on 12-11-2022 Creatinine [Mass/Vol] 2.58 mg/dL 0.70-1.30 [facility] Comment on above: The validity of the calculated GFR & GFRAA in patients over 70 years has not been determined. Clinical correlation is essential. Serum or plasma urea nitroge n measurement (mass/volume)Ordered By: Talya Nichols on 12-11-2022 Urea nitrogen [Mass/Vol] 78 mg/dL 09-26 [facility] RENINDon 11-28-2022 Direct Renin 281.2 pg/mL High 3.6-81.6 [facility] ([place] Comment on above: Result Comment: A ra [...] years: 3.2-33.2 pg/mLAge >=41 years: 2.5-45.1 pg/mLPerformed By:[place] [id number] Director: Norris Malone III, M.D.CLIA#: [id number] Performed By: #### A LAMBERTO, CBC, VIDH, GFR, CMP, PBNP, ADIFF, A1C, RENIND ####[facility] [place], [place] [address]#### PTH ####[place] [address] Patient Upright or Supine Upright Normal [facility] ([place] Comment on above: Result Comment: Perf ormed By:[facility] [address] [place] [id number] Director: Norris Malone III, M.D.CLIA#: [id number] Performed By: #### A LAMBERTO, CBC, VIDH, GFR, CMP, PBNP, ADIFF, A1C, RENIND ####[place] [address]#### PTH ####[address] [address] .Auto Diffon 11-24-2022 Basophil, Absolute 0.1 10 3/mcL Normal 0.0-0.2 [facility] ([place]) Comment on above: Performed By: #### A LAMBERTO, CBC, VIDH, GFR, CMP, PBNP, ADIFF, A1C, RENIND ####[place] [address]#### PTH ####[place] [address] Basophils/100 WBC (Bld) 1.0 % Normal 0.0-2.5 [facility] ([place]) Comment on above: Performed By: #### A LAMBERTO, CBC, VIDH, GFR, CMP, PBNP, ADIFF, A1C, RENIND ####[place] [address]#### PTH ####[place] [address] Eosinophil, Absolute 0.3 10 3/mcL Normal 0.0-0.4 [facility] ([place] Comment on above: Performed By: #### A LAMBERTO, CBC, VIDH, GFR, CMP, PBNP, ADIFF, A1C, RENIND ####[place] [address]#### PTH ####[place] [address] Eosinophils/100 WBC (Bld) 5.8 % Normal 0.0-7.0 [facility] ([place] Comment on above: Performed By: #### A LAMBERTO, CBC, VIDH, GFR, CMP, PBNP, ADIFF, A1C, RENIND ####[place] [address]#### PTH ####[place] [address] Lymphocyte, Absolute 1.2 10 3/mcL Normal 0.8-3.9 [facility] ([place] Comment on above: Performed By: #### A LAMBERTO, CBC, VIDH, GFR, CMP, PBNP, ADIFF, A1C, RENIND ####[place] [address]#### PTH ####[address] [address] Lymphocytes/100 WBC (Bld) 21.5 % Normal 10.0-50.0 [facility] ([place] Comment on above: Performed By: #### A LAMBERTO, CBC, VIDH, GFR, CMP, PBNP, ADIFF, A1C, RENIND ####[place] [address]#### PTH ####[address] [address] Monocyte, Absolute 0.4 10 3/mcL Normal 0.2-1.0 [facility] ([place] Comment on above: Performed By: #### A LAMBERTO, CBC, VIDH, GFR, CMP, PBNP, ADIFF, A1C, RENIND ####[place] [address]#### PTH ####[address] [address] Monocytes/100 WBC (Bld) 7.7 % Normal 1.7-13.0 [facility] ([place]) Comment on above: Performed By: #### A LAMBERTO, CBC, VIDH, GFR, CMP, PBNP, ADIFF, A1C, RENIND ####[place] [address]#### PTH ####[address] [address] Neutrophils/100 WBC (Bld) 64.0 % Normal 37.0-80.0 [facility] ([place] Comment on above: Performed By: #### A LAMBERTO, CBC, VIDH, GFR, CMP, PBNP, ADIFF, A1C, RENIND ####[place] [address]#### PTH ####[address] [address] .GFRon 11-24-2022 GFR 30 ml/min/1.73sqm Normal [facility] ([place] Comment on above: Result Comment: GFR Population [...] CMP, PBNP, ADIFF, A1C, RENIND ####[address] [place], [place] [address]#### PTH ####[address] [address] GFR Non- 24 ml/min/1.73sqm Normal [facility] ([place] Comment on above: Result Comment: GFR Population [...] CMP, PBNP, ADIFF, A1C, RENIND ####[address] [place], [place] [address]#### PTH ####[place] [address] .NEUABSon 11-24-2022 Neutrophil, Absolute 3.6 10 3/mcL Normal 2.9-6.2 [facility] ([place] Comment on above: Performed By: #### A LAMBERTO, CBC, VIDH, GFR, CMP, PBNP, ADIFF, A1C, RENIND ####[place] [address]#### PTH ####[place] [address] A1Con 11-24-2022 HbA1c (Bld) [Mass fraction] 6.3 % Normal 4.3-6.4 [facility] ([place] Comment on above: Performed By: #### A LAMBERTO, CBC, VIDH, GFR, CMP, PBNP, ADIFF, A1C, RENIND ####[place] [address]#### PTH ####[place] [address] CBCon 11-24-2022 Erythrocyte distribution width (RBC) [Ratio] 14.5 % Normal 11.5-14.5 [facility] ([place] Comment on above: Performed By: #### A LAMBERTO, CBC, VIDH, GFR, CMP, PBNP, ADIFF, A1C, RENIND ####[place] [address]#### PTH ####[place] [address] Hematocrit (Bld) [Volume fraction] 29.6 % Low 42.0-52.0 [facility] ([place] Comment on above: Performed By: #### A LAMBERTO, CBC, VIDH, GFR, CMP, PBNP, ADIFF, A1C, RENIND ####[place] [address]#### PTH ####[place] [address] Hgb 9.8 G/dL Low 14.0-18.0 [facility] ([place] Comment on above: Performed By: #### A LAMBERTO, CBC, VIDH, GFR, CMP, PBNP, ADIFF, A1C, RENIND ####[place] [address]#### PTH ####[place] [address] MCH (RBC) [Entitic mass] 30.2 pg Normal 27.0-31.2 [facility] ([place] Comment on above: Performed By: #### A LAMBERTO, CBC, VIDH, GFR, CMP, PBNP, ADIFF, A1C, RENIND ####[place] [address]#### PTH ####[place] [address] MCHC 33.0 G/dL Normal 31.8-35.4 [facility] ([place] Comment on above: Performed By: #### A LAMBERTO, CBC, VIDH, GFR, CMP, PBNP, ADIFF, A1C, RENIND ####[place] [address]#### PTH ####[place] [address] MCV (RBC) [Entitic vol] 91.4 fL Normal 80.0-94.0 [facility] ([place] Comment on above: Performed By: #### A LAMBERTO, CBC, VIDH, GFR, CMP, PBNP, ADIFF, A1C, RENIND ####[place] [address]#### PTH ####[place] [address] Platelet 153 10 3/mcL Normal 130-400 [facility] ([place] Comment on above: Performed By: #### A LAMBERTO, CBC, VIDH, GFR, CMP, PBNP, ADIFF, A1C, RENIND ####[place] [address]#### PTH ####[place] [address] Platelet mean volume (Bld) [Entitic vol] 8.1 fL Normal 7.4-10.4 [facility] ([place] Comment on above: Performed By: #### A LAMBERTO, CBC, VIDH, GFR, CMP, PBNP, ADIFF, A1C, RENIND ####[place] [address]#### PTH ####[place] [address] RBC 3.24 10 6/mcL Low 4.04-6.13 [facility] ([place] Comment on above: Performed By: #### A LAMBERTO, CBC, VIDH, GFR, CMP, PBNP, ADIFF, A1C, RENIND ####[place] [address]#### PTH ####[place] [address] WBC 5.7 10 3/mcL Normal 4.6-10.8 [facility] ([place] Comment on above: Performed By: #### A LAMBERTO, CBC, VIDH, GFR, CMP, PBNP, ADIFF, A1C, RENIND ####[place] [address]#### PTH ####[place] [address] CMPon 11-24-2022 Albumin Level 3.6 G/dL Normal 3.4-4.8 [facility] ([place] Comment on above: Performed By: #### A LAMBERTO, CBC, VIDH, GFR, CMP, PBNP, ADIFF, A1C, RENIND ####[place] [address]#### PTH ####[place] [address] Albumin/Globulin [Mass ratio] 1.0 {ratio} Low 1.1-2.5 [facility] ([place] Comment on above: Performed By: #### A LAMBERTO, CBC, VIDH, GFR, CMP, PBNP, ADIFF, A1C, RENIND ####[place] [address]#### PTH ####[address] [address] ALP [Catalytic activity/Vol] 81 U/L Normal 40-135 [facility] ([place] Comment on above: Performed By: #### A LAMBERTO, CBC, VIDH, GFR, CMP, PBNP, ADIFF, A1C, RENIND ####[place] [address]#### PTH ####[address] [address] ALT [Catalytic activity/Vol] 46 U/L Normal 16-63 [facility] ([place] Comment on above: Performed By: #### A LAMBERTO, CBC, VIDH, GFR, CMP, PBNP, ADIFF, A1C, RENIND ####[place] [address]#### PTH ####[place] [address] AST [Catalytic activity/Vol] 29 U/L Normal 10-40 [facility] ([place] Comment on above: Performed By: #### A LAMBERTO, CBC, VIDH, GFR, CMP, PBNP, ADIFF, A1C, RENIND ####[place] [address]#### PTH ####[address] [address] Bili Total 0.5 mg/dL Normal 0.2-1.0 [facility] ([place] Comment on above: Result Comment: Use of this assay is not recommended for patients undergoing treatment with eltrombopag due to the potential for falsely elevated results. Performed By: #### A LAMBERTO, CBC, VIDH, GFR, CMP, PBNP, ADIFF, A1C, RENIND ####[place] [address]#### PTH ####[place] [address] BUN/Creatinine Ratio 23 ratio Normal 7-27 [facility] ([place] Comment on above: Performed By: #### A LAMBERTO, CBC, VIDH, GFR, CMP, PBNP, ADIFF, A1C, RENIND ####[place] [address]#### PTH ####[address] [address] Calcium [Mass/Vol] 8.7 mg/dL Normal 8.4-10.2 [facility] ([place] Comment on above: Performed By: #### A LAMBERTO, CBC, VIDH, GFR, CMP, PBNP, ADIFF, A1C, RENIND ####[place] [id number]#### PTH ####[place] [address] Chloride [Moles/Vol] 105 mmol/L Normal 98-107 [facility] ([place]) Comment on above: Performed By: #### A LAMBERTO, CBC, VIDH, GFR, CMP, PBNP, ADIFF, A1C, RENIND ####[place] [id number]#### PTH ####[place] [address] CO2 [Moles/Vol] 28 mmol/L Normal 23-31 [facility] ([place]) Comment on above: Performed By: #### A LAMBERTO, CBC, VIDH, GFR, CMP, PBNP, ADIFF, A1C, RENIND ####[place] [id number]#### PTH ####[place] [address] Creatinine [Mass/Vol] 2.53 mg/dL High 0.70-1.30 [facility] ([place]) Comment on above: Performed By: #### A LAMBERTO, CBC, VIDH, GFR, CMP, PBNP, ADIFF, A1C, RENIND ####[place] [id number]#### PTH ####[place] [address] Electrolyte Balance 11.0 mEq/L Normal 4.0-15.0 [facility] ([place]) Comment on above: Performed By: #### A LAMBERTO, CBC, VIDH, GFR, CMP, PBNP, ADIFF, A1C, RENIND ####[place] [id number]#### PTH ####[address] [address] Globulin 3.6 G/dL Normal [facility] ([place] Comment on above: Performed By: #### A LAMBERTO, CBC, VIDH, GFR, CMP, PBNP, ADIFF, A1C, RENIND ####[place] [address]#### PTH ####[address] [address] Glucose [Mass/Vol] 207 mg/dL High 83-110 [facility] ([place]) Comment on above: Performed By: #### A LAMBERTO, CBC, VIDH, GFR, CMP, PBNP, ADIFF, A1C, RENIND ####[place] [address]#### PTH ####[address] [address] Potassium [Moles/Vol] 4.9 mmol/L Normal 3.5-5.1 [facility] ([place]) Comment on above: Performed By: #### A LAMBERTO, CBC, VIDH, GFR, CMP, PBNP, ADIFF, A1C, RENIND ####[place] [address]#### PTH ####[address] [address] Sodium [Moles/Vol] 144 mmol/L Normal 136-145 [facility] ([place] Comment on above: Performed By: #### A LAMBERTO, CBC, VIDH, GFR, CMP, PBNP, ADIFF, A1C, RENIND ####[place] [address]#### PTH ####[address] [address] Total Protein 7.2 G/dL Normal 6.4-8.2 [facility] ([place] Comment on above: Performed By: #### A LAMBERTO, CBC, VIDH, GFR, CMP, PBNP, ADIFF, A1C, RENIND ####[place] [address] [place], [place] [address]#### PTH ####[address] [address] Urea nitrogen [Mass/Vol] 59 mg/dL High 7-18 [facility] ([place] Comment on above: Performed By: #### A LAMBERTO, CBC, VIDH, GFR, CMP, PBNP, ADIFF, A1C, RENIND ####[place] [address] [place], [place] [address]#### PTH ####[place] [address] LABORATORYOrdered By: SYSTEM SYSTEM on 11-24-2022 25-hydroxyvitamin [...] B (Bld) [Mass/Vol] 538 pg/mL High 0-450 [facility] ([place] Comment on above: Result Comment: NT-p roBNP results of less than 300 pg/mL effectivelyrules out acute congestive heart failure with 99% negative predictive value. Performed By: #### A LAMBERTO, CBC, VIDH, GFR, CMP, PBNP, ADIFF, A1C, RENIND ####[id number] [place], [place] [address]#### PTH ####Katie [address] [address] PTHon 11-24-2022 PTH, Intact 235.9 pg/mL High 18.5-88.0 [facility] ([place]) Comment on above: Performed By: #### A LAMBERTO, CBC, VIDH, GFR, CMP, PBNP, ADIFF, A1C, RENIND ####[place] [id number]#### PTH ####[place] [id number] VIDHon 11-24-2022 Vit. D 25-Hydroxy 39.9 ng/mL Normal [facility] ([place] Comment on above: Result Comment: Inte rpretive Values Based on Total 25(OH) Vitamin D:Deficient <20 ng/mLInsufficient 20 - <30 ng/mLSufficient 30-100 ng/mL Performed By: #### A LAMBERTO, CBC, VIDH, GFR, CMP, PBNP, ADIFF, A1C, RENIND ####[address] [place] [address]#### PTH ####[place] [address] Basophil percentageOrdered B y: Erika Godwin on 11-18-2022 Basophil percentage 2.6 mg/dL 2.5-4.9 [facility] Chloride [Moles/Vol] 113 mmol/L 98-107 [facility] Glucose [Mass/Vol] 254 mg/dL 74-106 [facility] Comment on above: Glucose result great er than or equal to 200 mg/dLsuggests DIABETES MELLITUS per A.D.A. criteria. Potassium [Moles/Vol] 5.0 mmol/L 3.5-5.1 [facility] Sodium [Moles/Vol] 142 mmol/L 136-145 [facility] WBC (Bld) [#/Vol] 6.0 10*3/uL 4.4-11.0 [facility] Blood erythrocytes count (nu mber/volume)Ordered By: Erika Godwin on 11-18-2022 RBC (Bld) [#/Vol] 2.80 10*6/uL 4.6-6.2 [facility] Blood hemoglobin measurement (mass/volume)Ordered By: Erika Godwin on 11-18-2022 Hemoglobin (Bld) [Mass/Vol] 8.4 g/dL 13.0-16.5 [facility] Blood platelet mean volumeOr dered By: Erika Godwin on 11-18-2022 Platelet mean volume (Bld) [Entitic vol] 10.7 fL 6.2-12.0 [facility] Determination of erythrocyte mean corpuscular volume (MCV)Ordered By: Erika Godwin on 11-18-2022 MCV (RBC) [Entitic vol] 98.9 fL 80-94 [facility] Glucose Glucometer (BldC) [M ass/Vol]Ordered By: Erika Godwin on 11-18-2022 Glucose [Mass/Vol] 258 mg/dL 74-106 [facility] Comment on above: MANAGEMENT OF PATIEN T CARE PER NURSING PROTOCOL Hematocrit Auto (Bld) [Volum e fraction]Ordered By: Erika Godwin on 11-18-2022 Hematocrit (Bld) [Volume fraction] 27.7 % 40-54 [facility] Laboratory - Chemistry and C hemistry - challengeOrdered By: Erika Godwin on 11-18-2022 CO2 [Moles/Vol] 25.0 mmol/L 21.0-32.0 [facility] Magnesium [Mass/Vol] 2.1 mg/dL 1.6-2.6 [facility] Urea nitrogen/Creatinine [Mass ratio] 25.6 mg/mg 10-20 [facility] Laboratory - Hematology and Cell countsOrdered By: Erika Godwin on 11-18-2022 Erythrocyte distribution width (RBC) [Entitic vol] 52.4 fL 35.1-43.9 [facility] Erythrocyte distribution width (RBC) [Ratio] 14.4 % 11.6-14.6 [facility] MCH (RBC) [Entitic mass] 30.0 pg 27.0-32.0 [facility] MCHC Auto (RBC) [Mass/Vol]Or dered By: Erika Godwin on 11-18-2022 MCHC (RBC) [Mass/Vol] 30.3 g/dL 32-36 [facility] No Panel InformationOrdered By: Erika Godwin on 11-18-2022 Estimated Creatinine Clearance Calc 20.46 ml/min [facility] Estimated GFR (MDRD) Amer 34 mL/min >60 [facility] Comment on above: GFR Calc Estimated GFR (MDRD) Non-Af Amer 28 mL/min >60 [facility] Comment on above: Non- GFR Calc Platelets bldOrdered By: Jon Godwin on 11-18-2022 Platelets (Bld) [#/Vol] 112 10*3/uL 150-450 [facility] Serum or plasma calcium elmira urement (mass/volume)Ordered By: Erika Godwin on 11-18-2022 Calcium [Mass/Vol] 8.4 mg/dL 8.5-10.1 [facility] Serum or plasma creatinine m easurement (mass/volume)Ordered By: Erika Godwin on 11-18-2022 Creatinine [Mass/Vol] 2.38 mg/dL 0.70-1.30 [facility] Comment on above: The validity of the calculated GFR & GFRAA in patients over 70 years has not been determined. Clinical correlation is essential. Serum or plasma urea nitroge n measurement (mass/volume)Ordered By: Erika Godwin on 11-18-2022 Urea nitrogen [Mass/Vol] 61 mg/dL 7-18 [facility] Thin prep Papanicolaou smear with manual screeningOrdered By: Erika Godwin on 11-18-2022 Thin prep Papanicolaou smear with manual screening 4 5-15 [facility] Absolute lymphocyte countOrd ered By: Tracy Stanley on 11-17-2022 Lymphocytes Auto (Unsp spec) [#/Vol] 1.32 10*3/uL 0.83-4.51 [facility] Basophil percentageOrdered B y: Tracy Stanley on 11-17-2022 Basophils/100 WBC (Bld) 0.7 % 0-1 [facility] Bilirubin [Mass/Vol] 1.30 mg/dL 0.20-1.00 [facility] Comment on above: For patients on eltr ombopag therapy, use of Dimension [place] TBIL is not recommended. Eosinophils/100 WBC (Bld) 8.8 % 0-5 [facility] Neutrophils (Bld) [#/Vol] 3.1 10*3/uL 2.0-7.7 [facility] Neutrophils/100 WBC (Bld) 58.6 % 47-70 [facility] Protein [Mass/Vol] 6.4 g/dL 6.4-8.2 [facility] Blood lymphocytes/100 leukoc ytesOrdered By: Tracy Stanley on 11-17-2022 Lymphocytes/100 WBC (Bld) 24.6 % 19-41 [facility] Blood monocytes/100 leukocyt esOrdered By: Tracy Stanley on 11-17-2022 Monocytes/100 WBC (Bld) 7.1 % 0-10 [facility] Laboratory - Chemistry and C hemistry - challengeOrdered By: Tracy Stanley on 11-17-2022 ALP [Catalytic activity/Vol] 61 U/L 45-117 [facility] ALT [Catalytic activity/Vol] 23 U/L 16-61 [facility] Globulin (S) [Mass/Vol] 3.6 g/dL 2.2-4.2 [facility] Laboratory - Hematology and Cell countsOrdered By: Tracy Stanley on 11-17-2022 Immature granulocytes/100 WBC (Bld) 0.200 % 0.0-0.9 [facility] Comment on above: IG% - Immature Granu locytes (promyelocytes, myelocytes and metamyelocytes) > 1% indicates that a LEFT SHIFT is Present. Nucleated RBC/100 WBC (Bld) [Ratio] 0 % 0-5 [facility] Serum or plasma albumin elmira urement (mass/volume)Ordered By: Tracy Angel on 11-17-2022 Albumin [Mass/Vol] 2.8 g/dL 3.2-5.0 [facility] Serum or plasma albumin/glob ulin mass ratioOrdered By: Tracy Stanley on 11-17-2022 Albumin/Globulin [Mass ratio] 0.8 {ratio} 0.9-2.4 [facility] Thin prep Papanicolaou smear with manual screeningOrdered By: [facility] Stanley on 11-17-2022 Thin prep Papanicolaou smear with manual screening 17 U/L 15-37 [facility] Absolute lymphocyte countOrd ered By: Lonnie Moreno on 11-16-2022 Lymphocytes Auto (Unsp spec) [#/Vol] 1.12 10*3/uL 0.83-4.51 [facility] Basophil percentageOrdered B y: Lonnie Moreno on 11-16-2022 Basophils/100 WBC (Bld) 0.4 % 0-1 [facility] Chloride [Moles/Vol] 103 mmol/L 98-107 [facility] Eosinophils/100 WBC (Bld) 5.5 % 0-5 [facility] Glucose [Mass/Vol] 235 mg/dL 74-106 [facility] Comment on above: Glucose result great er than or equal to 200 mg/dLsuggests DIABETES MELLITUS per A.D.A. criteria. Neutrophils (Bld) [#/Vol] 3.8 10*3/uL 2.0-7.7 [facility] Neutrophils/100 WBC (Bld) 67.7 % 47-70 [facility] Potassium [Moles/Vol] 5.1 mmol/L 3.5-5.1 [facility] Sodium [Moles/Vol] 139 mmol/L 136-145 [facility] WBC (Bld) [#/Vol] 5.7 10*3/uL 4.4-11.0 [facility] Blood erythrocytes count (nu mber/volume)Ordered By: Lonnie Moreno on 11-16-2022 RBC (Bld) [#/Vol] 2.13 10*6/uL 4.6-6.2 [facility] Blood hemoglobin measurement (mass/volume)Ordered By: Lonnie Moreno on 11-16-2022 Hemoglobin (Bld) [Mass/Vol] 6.4 g/dL 13.0-16.5 [facility] Blood lymphocytes/100 leukoc ytesOrdered By: Lonnie Moreno on 11-16-2022 Lymphocytes/100 WBC (Bld) 19.8 % 19-41 [facility] Blood monocytes/100 leukocyt esOrdered By: Lonnie Moreno on 11-16-2022 Monocytes/100 WBC (Bld) 6.2 % 0-10 [facility] Blood platelet mean volumeOr dered By: Lonnie Moreno on 11-16-2022 Platelet mean volume (Bld) [Entitic vol] 10.9 fL 6.2-12.0 [facility] COVID-19 virus antigen assay Ordered By: Lonnie Moreno on 11-16-2022 SARS-CoV-2 (COVID-19) Ag IA.rapid Ql (Resp) [facility] SARS-CoV-2 (COVID-19) Ag IA.rapid Ql (Resp) [facility] Determination of erythrocyte mean corpuscular volume (MCV)Ordered By: Lonnie Moreno on 11-16-2022 MCV (RBC) [Entitic vol] 98.1 fL 80-94 [facility] Hematocrit Auto (Bld) [Volum e fraction]Ordered By: Lonnie Moreno on 11-16-2022 Hematocrit (Bld) [Volume fraction] 20.9 % 40-54 [facility] Laboratory - Chemistry and C hemistry - challengeOrdered By: Lonnie Moreno on 11-16-2022 CO2 [Moles/Vol] 29.0 mmol/L 21.0-32.0 [facility] Natriuretic peptide B (Bld) [Mass/Vol] 50.7 pg/mL 0-100 [facility] Urea nitrogen/Creatinine [Mass ratio] 29.2 mg/mg 10-20 [facility] Laboratory - Hematology and Cell countsOrdered By: Lonnie Moreno on 11-16-2022 Erythrocyte distribution width (RBC) [Entitic vol] 50.7 fL 35.1-43.9 [facility] Erythrocyte distribution width (RBC) [Ratio] 14.6 % 11.6-14.6 [facility] Immature granulocytes/100 WBC (Bld) 0.400 % 0.0-0.9 [facility] Comment on above: IG% - Immature Granu locytes (promyelocytes, myelocytes and metamyelocytes) > 1% indicates that a LEFT SHIFT is Present. MCH (RBC) [Entitic mass] 30.0 pg 27.0-32.0 [facility] Nucleated RBC/100 WBC (Bld) [Ratio] 0 % 0-5 [facility] MCHC Auto (RBC) [Mass/Vol]Or dered By: Lonnie Moreno on 11-16-2022 MCHC (RBC) [Mass/Vol] 30.6 g/dL 32-36 [facility] No Panel InformationOrdered By: Lonnie Moreno on 11-16-2022 Estimated Creatinine Clearance Calc 16.73 ml/min [facility] Estimated GFR (MDRD) Amer 27 mL/min >60 [facility] Comment on above: GFR Calc Estimated GFR (MDRD) Non-Af Amer 22 mL/min >60 [facility] Comment on above: Non- GFR Calc Troponin I High Sensitivity 25 pg/mL 3.0-78.0 [facility] Comment on above: Please Note: New Arti t Units and Gender Specific Reference Ranges. For more information see Policy Stat Procedure [place] High Sensitivity Troponin (TNIH) and attachments. Platelets bldOrdered By: Robb Moreno on 11-16-2022 Platelets (Bld) [#/Vol] 124 10*3/uL 150-450 [facility] Serum or plasma calcium elmira urement (mass/volume)Ordered By: Lonnie Moreno on 11-16-2022 Calcium [Mass/Vol] 9.1 mg/dL 8.5-10.1 [facility] Serum or plasma creatinine m easurement (mass/volume)Ordered By: Lonnie Moreno on 11-16-2022 Creatinine [Mass/Vol] 2.91 mg/dL 0.70-1.30 [facility] Comment on above: The validity of the calculated GFR & GFRAA in patients over 70 years has not been determined. Clinical correlation is essential. Serum or plasma urea nitroge n measurement (mass/volume)Ordered By: Lonnie Moreno on 11-16-2022 Urea nitrogen [Mass/Vol] 85 mg/dL 7-18 [facility] Stool gastrointestinal hemog lobin detection by immunologic methodOrdered By: Lonnie Moreno on 11-16-2022 Lower GI hemoglobin IA Ql (Stl) [facility] Lower GI hemoglobin IA Ql (Stl) [facility] Thin prep Papanicolaou smear with manual screeningOrdered By: Lonnie Moreno on 11-16-2022 Thin prep Papanicolaou smear with manual screening 7 5-15 [facility] .GFRon 11-08-2022 GFR 30 ml/min/1.73sqm Normal [facility] ([place] Comment on above: Result Comment: GFR Population [...] Performed By: #### B MP, PBNP, GFR ####[address] [address] GFR Non- 25 ml/min/1.73sqm Normal [facility] ([place] Comment on above: Result Comment: GFR Population [...] Performed By: #### B MP, PBNP, GFR ####[address] [address] BMPon 11-08-2022 BUN/Creatinine Ratio 34 ratio High 7-27 [facility] ([place]) Comment on above: Performed By: #### B MP, PBNP, GFR ####[address] [address] Calcium [Mass/Vol] 9.3 mg/dL Normal 8.4-10.2 [facility] ([place]) Comment on above: Performed By: #### B MP, PBNP, GFR ####[address] [address] Chloride [Moles/Vol] 104 mmol/L Normal 98-107 [facility] ([place]) Comment on above: Performed By: #### B MP, PBNP, GFR ####[address] [address] CO2 [Moles/Vol] 32 mmol/L High 23-31 [facility] ([place] Comment on above: Performed By: #### B MP, PBNP, GFR ####[address] [address] Creatinine [Mass/Vol] 2.49 mg/dL High 0.70-1.30 [facility] ([place]) Comment on above: Performed By: #### B MP, PBNP, GFR ####[address] [address] Electrolyte Balance 9.0 mEq/L Normal 4.0-15.0 [facility] ([place]) Comment on above: Performed By: #### B MP, PBNP, GFR ####[address] [address] Glucose [Mass/Vol] 241 mg/dL High 83-110 [facility] ([place] Comment on above: Performed By: #### B MP, PBNP, GFR ####[address] [address] Potassium [Moles/Vol] 5.1 mmol/L Normal 3.5-5.1 [facility] ([place] Comment on above: Performed By: #### B MP, PBNP, GFR ####[address] [address] Sodium [Moles/Vol] 145 mmol/L Normal 136-145 [facility] ([place] Comment on above: Performed By: #### B MP, PBNP, GFR ####[address] [address] Urea nitrogen [Mass/Vol] 85 mg/dL High 7-18 [facility] ([place] Comment on above: Performed By: #### B MP, PBNP, GFR ####[address] [address] LABORATORYOrdered By: SYSTEM SYSTEM on 11-08-2022 Calcium [...] B (Bld) [Mass/Vol] 570 pg/mL High 0-450 [facility] ([place] Comment on above: Result Comment: NT-p roBNP results of less than 300 pg/mL effectivelyrules out acute congestive heart failure with 99% negative predictive value. Performed By: #### B MP, PBNP, GFR ####[address] [address] .Auto Diffon 10-31-2022 Basophil, Absolute 0.0 10 3/mcL Normal 0.0-0.2 [facility] ([place]) Comment on above: Performed By: #### C BC, GFR, ADIFF, BMP, PBNP, ANEU ####[address] [address] Basophils/100 WBC (Bld) 0.3 % Normal 0.0-2.5 [facility] ([place]) Comment on above: Performed By: #### C BC, GFR, ADIFF, BMP, PBNP, ANEU ####[address] [address] Eosinophil, Absolute 0.7 10 3/mcL High 0.0-0.4 [facility] ([place] Comment on above: Performed By: #### C BC, GFR, ADIFF, BMP, PBNP, ANEU ####[address] [address] Eosinophils/100 WBC (Bld) 5.1 % Normal 0.0-7.0 [facility] ([place]) Comment on above: Performed By: #### C BC, GFR, ADIFF, BMP, PBNP, ANEU ####[address] [address] Lymphocyte, Absolute 2.0 10 3/mcL Normal 0.8-3.9 [facility] ([place]) Comment on above: Performed By: #### C BC, GFR, ADIFF, BMP, PBNP, ANEU ####[address] [address] Lymphocytes/100 WBC (Bld) 15.0 % Normal 10.0-50.0 [facility] ([place]) Comment on above: Performed By: #### C BC, GFR, ADIFF, BMP, PBNP, ANEU ####[address] [address] Monocyte, Absolute 0.8 10 3/mcL Normal 0.2-1.0 [facility] ([place]) Comment on above: Performed By: #### C BC, GFR, ADIFF, BMP, PBNP, ANEU ####[address] [address] Monocytes/100 WBC (Bld) 6.0 % Normal 1.7-13.0 [facility] ([place] Comment on above: Performed By: #### C BC, GFR, ADIFF, BMP, PBNP, ANEU ####[address] [address] Neutrophils/100 WBC (Bld) 73.6 % Normal 37.0-80.0 [facility] ([place] Comment on above: Performed By: #### C BC, GFR, ADIFF, BMP, PBNP, ANEU ####[address] [address] .GFRon 10-31-2022 GFR 28 ml/min/1.73sqm Normal [facility] ([place] Comment on above: Result Comment: GFR Population [...] C BC, GFR, ADIFF, BMP, PBNP, ANEU ####[address] [address] GFR Non- 23 ml/min/1.73sqm Normal [facility] ([place] Comment on above: Result Comment: GFR Population [...] C BC, GFR, ADIFF, BMP, PBNP, ANEU ####[address] [address] .NEUABSon 10-31-2022 Neutrophil, Absolute 9.6 10 3/mcL High 2.9-6.2 [facility] ([place] Comment on above: Performed By: #### C BC, GFR, ADIFF, BMP, PBNP, ANEU ####[address] [address] BMPon 10-31-2022 BUN/Creatinine Ratio 47 ratio High 7-27 [facility] ([place] Comment on above: Performed By: #### C BC, GFR, ADIFF, BMP, PBNP, ANEU ####[address] [address] Calcium [Mass/Vol] 8.2 mg/dL Low 8.4-10.2 [facility] ([place] Comment on above: Performed By: #### C BC, GFR, ADIFF, BMP, PBNP, ANEU ####[address] [address] Chloride [Moles/Vol] 102 mmol/L Normal 98-107 [facility] ([place] Comment on above: Performed By: #### C BC, GFR, ADIFF, BMP, PBNP, ANEU ####[address] [address] CO2 [Moles/Vol] 29 mmol/L Normal 23-31 [facility] ([place] Comment on above: Performed By: #### C BC, GFR, ADIFF, BMP, PBNP, ANEU ####[address] [address] Creatinine [Mass/Vol] 2.67 mg/dL High 0.70-1.30 [facility] ([place] Comment on above: Performed By: #### C BC, GFR, ADIFF, BMP, PBNP, ANEU ####[address] [address] Electrolyte Balance 9.0 mEq/L Normal 4.0-15.0 [facility] ([place] Comment on above: Performed By: #### C BC, GFR, ADIFF, BMP, PBNP, ANEU ####[address] [address] Glucose [Mass/Vol] 272 mg/dL High 83-110 [facility] [place] Comment on above: Performed By: #### C BC, GFR, ADIFF, BMP, PBNP, ANEU ####[address] [address] Potassium [Moles/Vol] 4.8 mmol/L Normal 3.5-5.1 [facility] ([place] Comment on above: Performed By: #### C BC, GFR, ADIFF, BMP, PBNP, ANEU ####[address] [address] Sodium [Moles/Vol] 140 mmol/L Normal 136-145 [facility] ([place] Comment on above: Performed By: #### C BC, GFR, ADIFF, BMP, PBNP, ANEU ####[place] [address] Urea nitrogen [Mass/Vol] 126 mg/dL High 7-18 [facility] ([place] Comment on above: Performed By: #### C BC, GFR, ADIFF, BMP, PBNP, ANEU ####[place] [address] CBCon 10-31-2022 Erythrocyte distribution width (RBC) [Ratio] 15.0 % High 11.5-14.5 [facility] ([place] Comment on above: Performed By: #### C BC, GFR, ADIFF, BMP, PBNP, ANEU ####[place] [address] Hematocrit (Bld) [Volume fraction] 25.1 % Low 42.0-52.0 [facility] ([place] Comment on above: Performed By: #### C BC, GFR, ADIFF, BMP, PBNP, ANEU ####[place] [address] Hgb 8.4 G/dL Low 14.0-18.0 [facility] ([place] Comment on above: Performed By: #### C BC, GFR, ADIFF, BMP, PBNP, ANEU ####[place] [address] MCH (RBC) [Entitic mass] 30.2 pg Normal 27.0-31.2 [facility] ([place] Comment on above: Performed By: #### C BC, GFR, ADIFF, BMP, PBNP, ANEU ####[place] [address] MCHC 33.4 G/dL Normal 31.8-35.4 [facility] ([place] Comment on above: Performed By: #### C BC, GFR, ADIFF, BMP, PBNP, ANEU ####[place] [address] MCV (RBC) [Entitic vol] 90.3 fL Normal 80.0-94.0 [facility] ([place] Comment on above: Performed By: #### C BC, GFR, ADIFF, BMP, PBNP, ANEU ####[place] [address] Platelet 192 10 3/mcL Normal 130-400 [facility] ([place] Comment on above: Performed By: #### C BC, GFR, ADIFF, BMP, PBNP, ANEU ####[place] [address] Platelet mean volume (Bld) [Entitic vol] 7.9 fL Normal 7.4-10.4 [facility] ([place] Comment on above: Performed By: #### C BC, GFR, ADIFF, BMP, PBNP, ANEU ####[place] [address] RBC 2.78 10 6/mcL Low 4.04-6.13 [facility] ([place] Comment on above: Performed By: #### C BC, GFR, ADIFF, BMP, PBNP, ANEU ####[place] [address] WBC 13.1 10 3/mcL High 4.6-10.8 [facility] ([place] Comment on above: Performed By: #### C BC, GFR, ADIFF, BMP, PBNP, ANEU ####[address] [address] PBNPon 10-31-2022 Natriuretic peptide B (Bld) [Mass/Vol] 836 pg/mL High 0-450 [facility] ([place] Comment on above: Result Comment: NT-p roBNP results of less than 300 pg/mL effectivelyrules out acute congestive heart failure with 99% negative predictive value. Performed By: #### C BC, GFR, ADIFF, BMP, PBNP, ANEU ####[place] [address] XR CHEST 2 VIEWSon XR CHEST 2 VIEWS [facility] [place] .GFRon 10-24-2022 GFR 34 ml/min/1.73sqm [facility] ([place] Comment on above: Result Comment: GFR Population [...] #### C MP, PBNP, GFR ####[address] [place], [place] [address] GFR Non- 28 ml/min/1.73sqm [facility] ([place] Comment on above: Result Comment: GFR Population [...] #### C MP, PBNP, GFR ####[address] [place], [place] [address] [facility] Albumin Level 3.6 G/dL Normal 3.4-4.8 [facility] ([place] Comment on above: Performed By: #### C MP, PBNP, GFR ####[address] [place], [place] [address] Albumin/Globulin [Mass ratio] 0.9 {ratio} Low 1.1-2.5 [facility] ([place] Comment on above: Performed By: #### C MP, PBNP, GFR ####[address] [place], [place] [address] ALP [Catalytic activity/Vol] 80 U/L Normal 40-135 [facility] ([place] Comment on above: Performed By: #### C MP, PBNP, GFR ####[address] [place], [place] [address] ALT [Catalytic activity/Vol] 20 U/L Normal 16-63 [facility] ([place] Comment on above: Performed By: #### C MP, PBNP, GFR ####[address] [place], [place] [address] AST [Catalytic activity/Vol] 21 U/L Normal 10-40 [facility] ([place] Comment on above: Performed By: #### C MP, PBNP, GFR ####[address] [place], [place] [address] Bili Total 0.7 mg/dL Normal 0.2-1.0 [facility] ([place] Comment on above: Result Comment: Use of this assay is not recommended for patients undergoing treatment with eltrombopag due to the potential for falsely elevated results. Performed By: #### C MP, PBNP, GFR ####[address] [place], [place] [address] BUN/Creatinine Ratio 36 ratio High 7-27 [facility] ([place] Comment on above: Performed By: #### C MP, PBNP, GFR ####[address] [place], [place] [address] Calcium [Mass/Vol] 10.0 mg/dL Normal 8.4-10.2 [facility] ([place] Comment on above: Performed By: #### C MP, PBNP, GFR ####[address] [place], [place] [address] Chloride [Moles/Vol] 102 mmol/L Normal 98-107 [facility] ([place] Comment on above: Performed By: #### C MP, PBNP, GFR ####[address] [place], [place] [address] CO2 [Moles/Vol] 32 mmol/L High 23-31 [facility] ([place] Comment on above: Performed By: #### C MP, PBNP, GFR ####[address] [place], [place] [address] Creatinine [Mass/Vol] 2.22 mg/dL High 0.70-1.30 [facility] ([place] Comment on above: Performed By: #### C MP, PBNP, GFR ####[address] [place], [place] [address] Electrolyte Balance 9.0 mEq/L Normal 4.0-15.0 [facility] ([place]) Comment on above: Performed By: #### C MP, PBNP, GFR ####[address] [place], [place] [address] Globulin 3.9 G/dL [facility] ([place]) Comment on above: Performed By: #### C MP, PBNP, GFR ####[address] [place], [place] [address] Glucose [Mass/Vol] 127 mg/dL High 83-110 [facility] ([place]) Comment on above: Performed By: #### C MP, PBNP, GFR ####[address] [place], [place] [address] Potassium [Moles/Vol] 4.8 mmol/L Normal 3.5-5.1 [facility] ([place]) Comment on above: Performed By: #### C MP, PBNP, GFR ####[address] [place], [place] [address] Sodium [Moles/Vol] 143 mmol/L Normal 136-145 [facility] ([place]) Comment on above: Performed By: #### C MP, PBNP, GFR ####[address] [place], [place] [address] Total Protein 7.5 G/dL Normal 6.4-8.2 [facility] ([place]) Comment on above: Performed By: #### C MP, PBNP, GFR ####[address] [place], [place] [address] Urea nitrogen [Mass/Vol] 80 mg/dL High 7-18 [facility] ([place]) Comment on above: Performed By: #### C MP, PBNP, GFR ####[address] [place], [place] [address] LABORATORYOrdered By: SYSTEM SYSTEM on 10-24-2022 Albumin [...] B (Bld) [Mass/Vol] 779 pg/mL High 0-450 [facility] ([place]) Comment on above: Result Comment: NT-p roBNP results of less than 300 pg/mL effectivelyrules out acute congestive heart failure with 99% negative predictive value. Performed By: #### C MP, PBNP, GFR ####[address] [place], [place] [address] Absolute lymphocyte countOrd ered By: Eyal Calderon on 10-22-2022 Lymphocytes Auto (Unsp spec) [#/Vol] 1.35 10*3/uL 0.83-4.51 [facility] Basophil percentageOrdered B y: Eyal Calderon on 10-22-2022 Basophils/100 WBC (Bld) 0.6 % 0-1 [facility] Chloride [Moles/Vol] 105 mmol/L 98-107 [facility] Eosinophils/100 WBC (Bld) 6.9 % 0-5 [facility] Glucose [Mass/Vol] 171 mg/dL 74-106 [facility] Comment on above: Fasting Glucose resu lt greater than or equal to 126 mg/dL suggests DIABETES MELLITUS per A.D.A. criteria. Neutrophils (Bld) [#/Vol] 4.0 10*3/uL 2.0-7.7 [facility] Neutrophils/100 WBC (Bld) 63.1 % 47-70 [facility] Potassium [Moles/Vol] 4.5 mmol/L 3.5-5.1 [facility] Sodium [Moles/Vol] 143 mmol/L 136-145 [facility] WBC (Bld) [#/Vol] 6.3 10*3/uL 4.4-11.0 [facility] Blood erythrocytes count (nu mber/volume)Ordered By: Eyal Calderon on 10-22-2022 RBC (Bld) [#/Vol] 3.02 10*6/uL 4.6-6.2 [facility] Blood hemoglobin measurement (mass/volume)Ordered By: Eyal Calderon on 10-22-2022 Hemoglobin (Bld) [Mass/Vol] 9.0 g/dL 13.0-16.5 [facility] Blood lymphocytes/100 leukoc ytesOrdered By: Eyal Calderon on 10-22-2022 Lymphocytes/100 WBC (Bld) 21.3 % 19-41 [facility] Blood monocytes/100 leukocyt esOrdered By: Eyal Calderon on 10-22-2022 Monocytes/100 WBC (Bld) 7.9 % 0-10 [facility] Blood platelet mean volumeOr dered By: Eyal Calderon on 10-22-2022 Platelet mean volume (Bld) [Entitic vol] 10.9 fL 6.2-12.0 [facility] Determination of erythrocyte mean corpuscular volume (MCV)Ordered By: Eyal Calderon on 10-22-2022 MCV (RBC) [Entitic vol] 94.4 fL 80-94 [facility] Hematocrit Auto (Bld) [Volum e fraction]Ordered By: Eyal Calderon on 10-22-2022 Hematocrit (Bld) [Volume fraction] 28.5 % 40-54 [facility] Laboratory - Chemistry and C hemistry - challengeOrdered By: Eyal Calderon on 10-22-2022 CO2 [Moles/Vol] 33.0 mmol/L 21.0-32.0 [facility] Natriuretic peptide B (Bld) [Mass/Vol] 47.9 pg/mL 0-100 [facility] Urea nitrogen/Creatinine [Mass ratio] 36.4 mg/mg 10-20 [facility] Laboratory - Hematology and Cell countsOrdered By: Eyal Calderon on 10-22-2022 Erythrocyte distribution width (RBC) [Entitic vol] 47.1 fL 35.1-43.9 [facility] Erythrocyte distribution width (RBC) [Ratio] 13.8 % 11.6-14.6 [facility] Immature granulocytes/100 WBC (Bld) 0.200 % 0.0-0.9 [facility] Comment on above: IG% - Immature Granu locytes (promyelocytes, myelocytes and metamyelocytes) > 1% indicates that a LEFT SHIFT is Present. MCH (RBC) [Entitic mass] 29.8 pg 27.0-32.0 [facility] Nucleated RBC/100 WBC (Bld) [Ratio] 0 [facility] [[facility]/Vol]Or dered By: Eyal Calderon on 10-22-2022 MCHC (RBC) [Mass/Vol] 31.6 g/dL 32-36 [facility] No Panel InformationOrdered By: Eyal Calderon on 10-22-2022 D-Dimer Quantitative (PE/DVT) 0.62 FEU/ug/m 0.27-0.49 [facility] Comment on above: D-Dimer ELEVATED (>0 .49): Additional studies and clinicalassessments are indicated to conclude diagnosis of:Deep Vein Thrombosis (DVT) or Pulmonary Embolism (PE)CRITICAL VALUE VERIFIED. CALLED TO AYAZ [id number] Roc Angel.RESULTS READ BACK BY SAME . Estimated Creatinine Clearance Calc 24.59 ml/min [facility] Estimated GFR (MDRD) Amer 42 mL/min >60 [facility] Comment on above: GFR Calc Estimated GFR (MDRD) Non-Af Amer 34 mL/min >60 [facility] Comment on above: Non- GFR Calc Troponin I High Sensitivity 24 pg/mL 3.0-78.0 [facility] Comment on above: Please Note: New Arti t Units and Gender Specific Reference Ranges. For more information see Policy Stat Procedure [place] High Sensitivity Troponin (TNIH) and attachments. Platelets bldOrdered By: Nora Calderon on 10-22-2022 Platelets (Bld) [#/Vol] 116 10*3/uL 150-450 [facility] Serum or plasma calcium elmira urement (mass/volume)Ordered By: Eyal Calderon on 10-22-2022 Calcium [Mass/Vol] 9.4 mg/dL 8.5-10.1 [facility] Serum or plasma creatinine m easurement (mass/volume)Ordered By: Eyal Calderon on 10-22-2022 Creatinine [Mass/Vol] 1.98 mg/dL 0.70-1.30 [facility] Comment on above: The validity of the calculated GFR & GFRAA in patients over 70 years has not been determined. Clinical correlation is essential. Serum or plasma urea nitroge n measurement (mass/volume)Ordered By: Eyal Calderon on 10-22-2022 Urea nitrogen [Mass/Vol] 72 mg/dL 7-18 [facility] Thin prep Papanicolaou smear with manual screeningOrdered By: Eyal Calderon on 10-22-2022 Thin prep Papanicolaou smear with manual screening 5 5-15 [facility] XR CHEST 2 VIEWSon XR CHEST 2 VIEWS Normal [facility] ([place]) .Auto Diffon 10-19-2022 Basophil, Absolute 0.1 10 3/mcL Normal 0.0-0.2 [facility] ([place]) Comment on above: Performed By: #### C BC, ANEU, CMP, URIC, GFR, PBNP, ADIFF ####[address] [place], [place] [address] Basophils/100 WBC (Bld) 0.9 % Normal 0.0-2.5 [facility] ([place]) Comment on above: Performed By: #### C BC, ANEU, CMP, URIC, GFR, PBNP, ADIFF ####[address] [place], [place] [address] Eosinophil, Absolute 0.3 10 3/mcL Normal 0.0-0.4 [facility] ([place]) Comment on above: Performed By: #### C BC, ANEU, CMP, URIC, GFR, PBNP, ADIFF ####[address] [place], [place] [address] Eosinophils/100 WBC (Bld) 5.7 % Normal 0.0-7.0 [facility] ([place] Comment on above: Performed By: #### C BC, ANEU, CMP, URIC, GFR, PBNP, ADIFF ####[address] [place], [place] [address] Lymphocyte, Absolute 1.4 10 3/mcL Normal 0.8-3.9 [facility] ([place]) Comment on above: Performed By: #### C BC, ANEU, CMP, URIC, GFR, PBNP, ADIFF ####[address] [place], [place] [address] Lymphocytes/100 WBC (Bld) 25.2 % Normal 10.0-50.0 [facility] ([place]) Comment on above: Performed By: #### C BC, ANEU, CMP, URIC, GFR, PBNP, ADIFF ####[address] [place], [place] [address] Monocyte, Absolute 0.5 10 3/mcL Normal 0.2-1.0 [facility] ([place]) Comment on above: Performed By: #### C BC, ANEU, CMP, URIC, GFR, PBNP, ADIFF ####[address] [place], [place] [address] Monocytes/100 WBC (Bld) 8.6 % Normal 1.7-13.0 [facility] ([place]) Comment on above: Performed By: #### C BC, ANEU, CMP, URIC, GFR, PBNP, ADIFF ####[address] [place], [place] [address] Neutrophils/100 WBC (Bld) 59.6 % Normal 37.0-80.0 [facility] ([place]) Comment on above: Performed By: #### C BC, ANEU, CMP, URIC, GFR, PBNP, ADIFF ####[address] [place], [place] [address] .GFRon 10-19-2022 GFR 44 ml/min/1.73sqm Normal [facility] ([place]) Comment on above: Result Comment: GFR Population [...] CMP, URIC, GFR, PBNP, ADIFF ####[address] [place], [place] [address] GFR Non- 36 ml/min/1.73sqm Normal [facility] ([place]) Comment on above: Result Comment: GFR Population [...] CMP, URIC, GFR, PBNP, ADIFF ####[address] [place], [place] [address] .NEUABSon 10-19-2022 Neutrophil, Absolute 3.4 10 3/mcL Normal 2.9-6.2 [facility] ([place]) Comment on above: Performed By: #### C BC, ANEU, CMP, URIC, GFR, PBNP, ADIFF ####[address] [place], [place] [address] CBCon 10-19-2022 Erythrocyte distribution width (RBC) [Ratio] 14.7 % High 11.5-14.5 [facility] ([place]) Comment on above: Performed By: #### C BC, ANEU, CMP, URIC, GFR, PBNP, ADIFF ####[address] [place], [place] [address] Hematocrit (Bld) [Volume fraction] 28.1 % Low 42.0-52.0 [facility] ([place]) Comment on above: Performed By: #### C BC, ANEU, CMP, URIC, GFR, PBNP, ADIFF ####[address] [place], [place] [address] Hgb 9.3 G/dL Low 14.0-18.0 [facility] ([place]) Comment on above: Performed By: #### C BC, ANEU, CMP, URIC, GFR, PBNP, ADIFF ####[address] [place], [place] [address] MCH (RBC) [Entitic mass] 29.7 pg Normal 27.0-31.2 [facility] ([place]) Comment on above: Performed By: #### C BC, ANEU, CMP, URIC, GFR, PBNP, ADIFF ####[address] [place], [place] [address] MCHC 33.2 G/dL Normal 31.8-35.4 [facility] ([place]) Comment on above: Performed By: #### C BC, ANEU, CMP, URIC, GFR, PBNP, ADIFF ####[address] [place], [place] [address] MCV (RBC) [Entitic vol] 89.5 fL Normal 80.0-94.0 [facility] ([place]) Comment on above: Performed By: #### C BC, ANEU, CMP, URIC, GFR, PBNP, ADIFF ####[address] [place], [place] [address] Platelet 118 10 3/mcL Low 130-400 [facility] ([place]) Comment on above: Performed By: #### C BC, ANEU, CMP, URIC, GFR, PBNP, ADIFF ####[address] [place], [place] [address] Platelet mean volume (Bld) [Entitic vol] 8.6 fL Normal 7.4-10.4 [facility] ([place] Comment on above: Performed By: #### C BC, ANEU, CMP, URIC, GFR, PBNP, ADIFF ####[address] [place], [place] [address] RBC 3.14 10 6/mcL Low 4.04-6.13 [facility] ([place]) Comment on above: Performed By: #### C BC, ANEU, CMP, URIC, GFR, PBNP, ADIFF ####[address] [place] [id number] WBC 5.6 10 3/mcL Normal 4.6-10.8 [facility] ([place]) Comment on above: Performed By: #### C BC, ANEU, CMP, URIC, GFR, PBNP, ADIFF ####[address] [place], [place] [address] CMPon 10-19-2022 Albumin Level 3.3 G/dL Low 3.4-4.8 [facility] ([place]) Comment on above: Performed By: #### C BC, ANEU, CMP, URIC, GFR, PBNP, ADIFF ####[address] [place], [place] [address] Albumin/Globulin [Mass ratio] 0.9 {ratio} Low 1.1-2.5 [facility] ([place]) Comment on above: Performed By: #### C BC, ANEU, CMP, URIC, GFR, PBNP, ADIFF ####[address] [place], [place] [address] ALP [Catalytic activity/Vol] 71 U/L Normal 40-135 [facility] ([place] Comment on above: Performed By: #### C BC, ANEU, CMP, URIC, GFR, PBNP, ADIFF ####[address] [place], [place] [address] ALT [Catalytic activity/Vol] 21 U/L Normal 16-63 [facility] ([place] Comment on above: Performed By: #### C BC, ANEU, CMP, URIC, GFR, PBNP, ADIFF ####[address] [place], [place] [address] AST [Catalytic activity/Vol] 16 U/L Normal 10-40 [facility] ([place]) Comment on above: Performed By: #### C BC, ANEU, CMP, URIC, GFR, PBNP, ADIFF ####[address] [place], [place] [address] Bili Total 0.4 mg/dL Normal 0.2-1.0 [facility] ([place]) Comment on above: Result Comment: Use of this assay is not recommended for patients undergoing treatment with eltrombopag due to the potential for falsely elevated results. Performed By: #### C BC, ANEU, CMP, URIC, GFR, PBNP, ADIFF ####[address] [place], [place] [address] BUN/Creatinine Ratio 36 ratio High 7-27 [facility] ([place]) Comment on above: Performed By: #### C BC, ANEU, CMP, URIC, GFR, PBNP, ADIFF ####[address] [place], [place] [address] Calcium [Mass/Vol] 9.3 mg/dL Normal 8.4-10.2 [facility] ([place]) Comment on above: Performed By: #### C BC, ANEU, CMP, URIC, GFR, PBNP, ADIFF ####[address] [place], [place] [address] Chloride [Moles/Vol] 106 mmol/L Normal 98-107 [facility] ([place]) Comment on above: Performed By: #### C BC, ANEU, CMP, URIC, GFR, PBNP, ADIFF ####[address] [place], [place] [address] CO2 [Moles/Vol] 38 mmol/L High 23-31 [facility] ([place] Comment on above: Performed By: #### C BC, ANEU, CMP, URIC, GFR, PBNP, ADIFF ####[address] [place], [place] [address] Creatinine [Mass/Vol] 1.81 mg/dL High 0.70-1.30 [facility] ([place]) Comment on above: Performed By: #### C BC, ANEU, CMP, URIC, GFR, PBNP, ADIFF ####[address] [place], [place] [address] Electrolyte Balance 1.0 mEq/L Low 4.0-15.0 [facility] ([place]) Comment on above: Performed By: #### C BC, ANEU, CMP, URIC, GFR, PBNP, ADIFF ####[address] [place], [place] [address] Globulin 3.8 G/dL Normal [facility] ([place] Comment on above: Performed By: #### C BC, ANEU, CMP, URIC, GFR, PBNP, ADIFF ####[address] [place], [place] [address] Glucose [Mass/Vol] 108 mg/dL Normal 83-110 [facility] ([place]) Comment on above: Performed By: #### C BC, ANEU, CMP, URIC, GFR, PBNP, ADIFF ####[address] [place], [place] [address] Potassium [Moles/Vol] 5.0 mmol/L Normal 3.5-5.1 [facility] ([place]) Comment on above: Performed By: #### C BC, ANEU, CMP, URIC, GFR, PBNP, ADIFF ####[address] [place], [place] [address] Sodium [Moles/Vol] 145 mmol/L Normal 136-145 [facility] ([place]) Comment on above: Performed By: #### C BC, ANEU, CMP, URIC, GFR, PBNP, ADIFF ####[address] [place], [place] [address] Total Protein 7.1 G/dL Normal 6.4-8.2 [facility] ([place]) Comment on above: Performed By: #### C BC, ANEU, CMP, URIC, GFR, PBNP, ADIFF ####[address] [place], [place] [address] Urea nitrogen [Mass/Vol] 65 mg/dL High 7-18 [facility] ([place]) Comment on above: Performed By: #### C BC, ANEU, CMP, URIC, GFR, PBNP, ADIFF ####[address] [place], [place] [address] PBNPon 10-19-2022 Natriuretic peptide B (Bld) [Mass/Vol] 750 pg/mL High 0-450 [facility] ([place]) Comment on above: Result Comment: NT-p roBNP results of less than 300 pg/mL effectivelyrules out acute congestive heart failure with 99% negative predictive value. Performed By: #### C BC, ANEU, CMP, URIC, GFR, PBNP, ADIFF ####[address] [place], [place] [address] URICon 10-19-2022 Uric Acid Lvl 9.4 mg/dL High 3.5-7.2 [facility] ([place]) Comment on above: Performed By: #### C BC, ANEU, CMP, URIC, GFR, PBNP, ADIFF ####[address] [place], [place] [address] LABORATORYOrdered By: SYSTEM SYSTEM on 06-16-2022 Albumin [...] ratio AO ADM SS LABORATORYOrdered By: Abigail Bailey on 06-16-2022 Basophil, Absolute 0.1 103/mcL Invalid [...] [facility] Glucose [Mass/Vol] 169 mg/dL 74-106 [facility] Comment on above: Fasting Glucose resu lt greater than or equal to 126 mg/dL suggests DIABETES MELLITUS per A.D.A. criteria. Potassium [Moles/Vol] 4.1 mmol/L 3.5-5.1 [facility] Sodium [Moles/Vol] 139 mmol/L 136-145 [facility] Glucose Glucometer (BldC) [M ass/Vol]Ordered By: Dr. Anders on 05-26-2022 Glucose [Mass/Vol] 156 mg/dL 74-106 [facility] Comment on above: MANAGEMENT OF PATIEN T CARE PER NURSING PROTOCOL Laboratory - Chemistry and C hemistry - challengeOrdered By: Dr. Anders on 05-26-2022 CO2 [Moles/Vol] 31.0 mmol/L 21.0-32.0 [facility] Urea nitrogen/Creatinine [Mass ratio] 39.6 mg/mg 10-20 [facility] No Panel InformationOrdered By: Dr. Anders on 05-26-2022 Estimated Creatinine Clearance Calc 29.31 ml/min [facility] Estimated GFR (MDRD) Amer 50 mL/min >60 [facility] Comment on above: GFR Calc Estimated GFR (MDRD) Non-Af Amer 41 mL/min >60 [facility] Comment on above: Non- GFR Calc Serum or plasma calcium elmira urement (mass/volume)Ordered By: Dr. Anders on 05-26-2022 Calcium [Mass/Vol] 9.5 mg/dL 8.5-10.1 [facility] Serum or plasma creatinine m easurement (mass/volume)Ordered By: Dr. Anders on 05-26-2022 Creatinine [Mass/Vol] 1.69 mg/dL 0.70-1.30 [facility] Comment on above: The validity of the calculated GFR & GFRAA in patients over 70 years has not been determined. Clinical correlation is essential. Serum or plasma urea nitroge n measurement (mass/volume)Ordered By: Dr. Anders on 05-26-2022 Urea nitrogen [Mass/Vol] 67 mg/dL 7-18 [facility] Thin prep Papanicolaou smear with manual screeningOrdered By: Dr. Anders on 05-26-2022 Thin prep Papanicolaou smear with manual screening 10 5-15 [facility] Absolute lymphocyte countOrd ered By: Dr. Pardo on 05-25-2022 Lymphocytes Auto (Unsp spec) [#/Vol] 1.47 10*3/uL 0.83-4.51 [facility] Basophil percentageOrdered B y: Dr. Pardo on 05-25-2022 Basophils/100 WBC (Bld) 0.3 % 0-1 [facility] Bilirubin [Mass/Vol] 1.20 mg/dL 0.20-1.00 [facility] Comment on above: For patients on eltr ombopag therapy, use of Dimension [place] TBIL is not recommended. Eosinophils/100 WBC (Bld) 1.7 % 0-5 [facility] Neutrophils (Bld) [#/Vol] 9.2 10*3/uL 2.0-7.7 [facility] Neutrophils/100 WBC (Bld) 78.7 % 47-70 [facility] Protein [Mass/Vol] 6.9 g/dL 6.4-8.2 [facility] WBC (Bld) [#/Vol] 11.7 10*3/uL 4.4-11.0 [facility] Blood erythrocytes count (nu mber/volume)Ordered By: Dr. Pardo on 05-25-2022 RBC (Bld) [#/Vol] 3.00 10*6/uL 4.6-6.2 [facility] Blood hemoglobin measurement (mass/volume)Ordered By: Dr. Pardo on 05-25-2022 Hemoglobin (Bld) [Mass/Vol] 9.3 g/dL 13.0-16.5 [facility] Blood lymphocytes/100 leukoc ytesOrdered By: Dr. Pardo on 05-25-2022 Lymphocytes/100 WBC (Bld) 12.6 % 19-41 [facility] Blood monocytes/100 leukocyt esOrdered By: Dr. Pardo on 05-25-2022 Monocytes/100 WBC (Bld) 6.4 % 0-10 [facility] Blood platelet mean volumeOr dered By: Dr. Pardo on 05-25-2022 Platelet mean volume (Bld) [Entitic vol] 10.8 fL 6.2-12.0 [facility] Determination of erythrocyte mean corpuscular volume (MCV)Ordered By: Dr. Pardo on 05-25-2022 MCV (RBC) [Entitic vol] 95.7 fL 80-94 [facility] Hematocrit Auto (Bld) [Volum e fraction]Ordered By: Dr. Pardo on 05-25-2022 Hematocrit (Bld) [Volume fraction] 28.7 % 40-54 [facility] Laboratory - Chemistry and C hemistry - challengeOrdered By: Dr. Pardo on 05-25-2022 ALP [Catalytic activity/Vol] 68 U/L 45-117 [facility] ALT [Catalytic activity/Vol] 20 U/L 16-61 [facility] Globulin (S) [Mass/Vol] 4.0 g/dL 2.2-4.2 [facility] Magnesium [Mass/Vol] 1.5 mg/dL 1.6-2.6 [facility] Laboratory - Hematology and Cell countsOrdered By: Dr. Pardo on 05-25-2022 Erythrocyte distribution width (RBC) [Entitic vol] 45.5 fL 35.1-43.9 [facility] Erythrocyte distribution width (RBC) [Ratio] 13.3 % 11.6-14.6 [facility] Immature granulocytes/100 WBC (Bld) 0.300 % 0.0-0.9 [facility] Comment on above: IG% - Immature Granu locytes (promyelocytes, myelocytes and metamyelocytes) > 1% indicates that a LEFT SHIFT is Present. MCH (RBC) [Entitic mass] 31.0 pg 27.0-32.0 [facility] Nucleated RBC/100 WBC (Bld) [Ratio] 0 % 0-5 [facility] MCHC Auto (RBC) [Mass/Vol]Or dered By: Dr. Pardo on 05-25-2022 MCHC (RBC) [Mass/Vol] 32.4 g/dL 32-36 [facility] No Panel InformationOrdered By: Dr. Pardo on 05-25-2022 Thyroid Stimulating Hormone (TSH) 2.10 uIU/mL 0.358-3.74 [facility] Platelets bldOrdered By: Dr. Pardo on 05-25-2022 Platelets (Bld) [#/Vol] 119 10*3/uL 150-450 [facility] Serum or plasma albumin elmira urement (mass/volume)Ordered By: Dr. Pardo on 05-25-2022 Albumin [Mass/Vol] 2.9 g/dL 3.2-5.0 [facility] Serum or plasma albumin/glob ulin mass ratioOrdered By: Dr. Pardo on 05-25-2022 Albumin/Globulin [Mass ratio] 0.7 {ratio} 0.9-2.4 [facility] Thin prep Papanicolaou smear with manual screeningOrdered By: Dr. Pardo on 05-25-2022 Thin prep Papanicolaou smear with manual screening 15 U/L 15-37 [facility] Absolute lymphocyte countOrd ered By: Dr. Edward on 05-24-2022 Lymphocytes Auto (Unsp spec) [#/Vol] 1.14 10*3/uL 0.83-4.51 [facility] Basophil percentageOrdered B y: Dr. Edward on 05-24-2022 Basophils/100 WBC (Bld) 0.4 % 0-1 [facility] Chloride [Moles/Vol] 106 mmol/L 98-107 [facility] Eosinophils/100 WBC (Bld) 2.9 % 0-5 [facility] Glucose [Mass/Vol] 178 mg/dL 74-106 [facility] Comment on above: Fasting Glucose resu lt greater than or equal to 126 mg/dL suggests DIABETES MELLITUS per A.D.A. criteria. Neutrophils (Bld) [#/Vol] 8.4 10*3/uL 2.0-7.7 [facility] Neutrophils/100 WBC (Bld) 80.1 % 47-70 [facility] Potassium [Moles/Vol] 4.3 mmol/L 3.5-5.1 [facility] Sodium [Moles/Vol] 144 mmol/L 136-145 [facility] WBC (Bld) [#/Vol] 10.4 10*3/uL 4.4-11.0 [facility] Blood erythrocytes count (nu mber/volume)Ordered By: Dr. Edward on 05-24-2022 RBC (Bld) [#/Vol] 3.21 10*6/uL 4.6-6.2 [facility] Blood hemoglobin measurement (mass/volume)Ordered By: Dr. Edward on 05-24-2022 Hemoglobin (Bld) [Mass/Vol] 9.7 g/dL 13.0-16.5 [facility] Blood lymphocytes/100 leukoc ytesOrdered By: Dr. Edward on 05-24-2022 Lymphocytes/100 WBC (Bld) 10.9 % 19-41 [facility] Blood monocytes/100 leukocyt esOrdered By: Dr. Edward on 05-24-2022 Monocytes/100 WBC (Bld) 5.4 % 0-10 [facility] Blood platelet mean volumeOr dered By: Dr. Edward on 05-24-2022 Platelet mean volume (Bld) [Entitic vol] 10.8 fL 6.2-12.0 [facility] Determination of erythrocyte mean corpuscular volume (MCV)Ordered By: Dr. Edward on 05-24-2022 MCV (RBC) [Entitic vol] 96.3 fL 80-94 [facility] Hematocrit Auto (Bld) [Volum e fraction]Ordered By: Dr. Edward on 05-24-2022 Hematocrit (Bld) [Volume fraction] 30.9 % 40-54 [facility] Influenza virus A and B and SARS-CoV-2 (COVID-19) Ag panel - Upper respiratory specimOrdered By: Dr. Pardo on 05-24-2022 SARS-CoV-2 (COVID-19) RNA JOSH+probe Ql (Resp) [facility] Laboratory - Chemistry and C hemistry - challengeOrdered By: Dr. Edward on 05-24-2022 CO2 [Moles/Vol] 32.0 mmol/L 21.0-32.0 [facility] Natriuretic peptide B (Bld) [Mass/Vol] 200.1 pg/mL 0-100 [facility] Urea nitrogen/Creatinine [Mass ratio] 30.6 mg/mg 10-20 [facility] Laboratory - Hematology and Cell countsOrdered By: Dr. Edward on 05-24-2022 Erythrocyte distribution width (RBC) [Entitic vol] 45.9 fL 35.1-43.9 [facility] Erythrocyte distribution width (RBC) [Ratio] 13.3 % 11.6-14.6 [facility] Immature granulocytes/100 WBC (Bld) 0.300 % 0.0-0.9 [facility] Comment on above: IG% - Immature Granu locytes (promyelocytes, myelocytes and metamyelocytes) > 1% indicates that a LEFT SHIFT is Present. MCH (RBC) [Entitic mass] 30.2 pg 27.0-32.0 [facility] Nucleated RBC/100 WBC (Bld) [Ratio] 0 % 0-5 [facility] Laboratory - Microbiology an d Antimicrobial susceptibilityOrdered By: Dr. Pardo on 05-24-2022 Respiratory pathogens DNA and RNA 12b panel [facility] [Mass/Vol]Or dered By: Dr. Edward on 05-24-2022 MCHC (RBC) [Mass/Vol] 31.4 g/dL 32-36 [facility] No Panel InformationOrdered By: Dr. Pardo on 05-24-2022 Troponin I High Sensitivity 106 pg/mL 3.0-78.0 [facility] Comment on above: Please Note: New Arti t Units and Gender Specific Reference Ranges. For more information see Policy Stat Procedure [place] High Sensitivity Troponin (TNIH) and attachments. No Panel InformationOrdered By: Dr. Edward on 05-24-2022 Troponin I High Sensitivity 56 pg/mL 3.0-78.0 [facility] Comment on above: Please Note: New Arti t Units and Gender Specific Reference Ranges. For more information see Policy Stat Procedure [place] High Sensitivity Troponin (TNIH) and attachments. Estimated Creatinine Clearance Calc 33.70 ml/min [facility] Estimated GFR (MDRD) Amer 59 mL/min >60 [facility] Comment on above: GFR Calc Estimated GFR (MDRD) Non-Af Amer 49 mL/min >60 [facility] Comment on above: Non- GFR Calc Platelets bldOrdered By: Dr. Edward on 05-24-2022 Platelets (Bld) [#/Vol] 123 10*3/uL 150-450 [facility] Serum or plasma calcium elmira urement (mass/volume)Ordered By: Dr. Edward on 05-24-2022 Calcium [Mass/Vol] 9.5 mg/dL 8.5-10.1 [facility] Serum or plasma creatinine m easurement (mass/volume)Ordered By: Dr. Edward on 05-24-2022 Creatinine [Mass/Vol] 1.47 mg/dL 0.70-1.30 [facility] Comment on above: The validity of the calculated GFR & GFRAA in patients over 70 years has not been determined. Clinical correlation is essential. Serum or plasma urea nitroge n measurement (mass/volume)Ordered By: Dr. Edward on 05-24-2022 Urea nitrogen [Mass/Vol] 45 mg/dL 7-18 [facility] Thin prep Papanicolaou smear with manual screeningOrdered By: Dr. Edward on 05-24-2022 Thin prep Papanicolaou smear with manual screening 6 - [facility] Absolute lymphocyte countOrd ered By: Dr. Anders on 04-13-2022 Lymphocytes Auto (Unsp spec) [#/Vol] 1.63 10*3/uL 0.83-4.51 [facility] Basophil percentageOrdered B y: Dr. Anders on 04-13-2022 Basophils/100 WBC (Bld) 0.5 % 0-1 [facility] Chloride [Moles/Vol] 100 mmol/L 98-107 [facility] Eosinophils/100 WBC (Bld) 5.2 % 0-5 [facility] Glucose [Mass/Vol] 133 mg/dL 74-106 [facility] Comment on above: Fasting Glucose resu lt greater than or equal to 126 mg/dL suggests DIABETES MELLITUS per A.D.A. criteria. Neutrophils (Bld) [#/Vol] 3.1 10*3/uL 2.0-7.7 [facility] Neutrophils/100 WBC (Bld) 56.0 % 47-70 [facility] Potassium [Moles/Vol] 3.9 mmol/L 3.5-5.1 [facility] Sodium [Moles/Vol] 143 mmol/L 136-145 [facility] WBC (Bld) [#/Vol] 5.6 10*3/uL 4.4-11.0 [facility] Blood erythrocytes count (nu mber/volume)Ordered By: Dr. Anders on 04-13-2022 RBC (Bld) [#/Vol] 3.65 10*6/uL 4.6-6.2 [facility] Blood hemoglobin measurement (mass/volume)Ordered By: Dr. Anders on 04-13-2022 Hemoglobin (Bld) [Mass/Vol] 11.0 g/dL 13.0-16.5 [facility] Blood lymphocytes/100 leukoc ytesOrdered By: Dr. Anders on 04-13-2022 Lymphocytes/100 WBC (Bld) 29.3 % 19-41 [facility] Blood monocytes/100 leukocyt esOrdered By: Dr. Anders on 04-13-2022 Monocytes/100 WBC (Bld) 8.8 % 0-10 [facility] Blood platelet mean volumeOr dered By: Dr. Anders on 04-13-2022 Platelet mean volume (Bld) [Entitic vol] 10.7 fL 6.2-12.0 [facility] Determination of erythrocyte mean corpuscular volume (MCV)Ordered By: Dr. Anders on 04-13-2022 MCV (RBC) [Entitic vol] 92.1 fL 80-94 [facility] Glucose Glucometer (dC) [M ass/Vol]Ordered By: Dr. Anders on 04-13-2022 Glucose [Mass/Vol] 184 mg/dL 74-106 [facility] Comment on above: MANAGEMENT OF PATIEN T CARE PER NURSING PROTOCOL Hematocrit Auto (Bld) [Volum e fraction]Ordered By: Dr. Anders on 04-13-2022 Hematocrit (Bld) [Volume fraction] 33.6 % 40-54 [facility] Laboratory - Chemistry and C hemistry - challengeOrdered By: Dr. Anders on 04-13-2022 CO2 [Moles/Vol] 35.0 mmol/L 21.0-32.0 [facility] Urea nitrogen/Creatinine [Mass ratio] 24.5 mg/mg 10-20 [facility] Laboratory - Hematology and Cell countsOrdered By: Dr. Anders on 04-13-2022 Erythrocyte distribution width (RBC) [Entitic vol] 44.9 fL 35.1-43.9 [facility] Erythrocyte distribution width (RBC) [Ratio] 13.2 % 11.6-14.6 [facility] Immature granulocytes/100 WBC (Bld) 0.200 % 0.0-0.9 [facility] Comment on above: IG% - Immature Granu locytes (promyelocytes, myelocytes and metamyelocytes) > 1% indicates that a LEFT SHIFT is Present. MCH (RBC) [Entitic mass] 30.1 pg 27.0-32.0 [facility] Nucleated RBC/100 WBC (Bld) [Ratio] 0 % 0-5 [facility] MCHC Auto (RBC) [Mass/Vol]Or dered By: Dr. Anders on 04-13-2022 MCHC (RBC) [Mass/Vol] 32.7 g/dL 32-36 [facility] No Panel InformationOrdered By: Dr. Anders on 04-13-2022 Estimated Creatinine Clearance Calc 32.81 ml/min [facility] Estimated GFR (MDRD) Amer 57 mL/min >60 [facility] Comment on above: GFR Calc Estimated GFR (MDRD) Non-Af Amer 47 mL/min >60 [facility] Comment on above: Non- GFR Calc Platelets bldOrdered By: Dr. Anders on 04-13-2022 Platelets (Bld) [#/Vol] 125 10*3/uL 150-450 [facility] Serum or plasma calcium elmira urement (mass/volume)Ordered By: Dr. Anders on 04-13-2022 Calcium [Mass/Vol] 9.9 mg/dL 8.5-10.1 [facility] Serum or plasma creatinine m easurement (mass/volume)Ordered By: Dr. Anders on 04-13-2022 Creatinine [Mass/Vol] 1.51 mg/dL 0.70-1.30 [facility] Comment on above: The validity of the calculated GFR & GFRAA in patients over 70 years has not been determined. Clinical correlation is essential. Serum or plasma urea nitroge n measurement (mass/volume)Ordered By: Dr. Anders on 04-13-2022 Urea nitrogen [Mass/Vol] 37 mg/dL 7-18 [facility] Thin prep Papanicolaou smear with manual screeningOrdered By: Dr. Anders on 04-13-2022 Thin prep Papanicolaou smear with manual screening 8 5-15 [facility] Basophil percentageOrdered B y: Dr. Anders on 04-12-2022 Bilirubin [Mass/Vol] 0.60 mg/dL 0.20-1.00 [facility] Comment on above: For patients on eltr ombopag therapy, use of Dimension [place] TBIL is not recommended. Protein [Mass/Vol] 6.6 g/dL 6.4-8.2 [facility] Laboratory - Chemistry and C hemistry - challengeOrdered By: Dr. Anders on 04-12-2022 ALP [Catalytic activity/Vol] 77 U/L 45-117 [facility] ALT [Catalytic activity/Vol] 21 U/L 16-61 [facility] Globulin (S) [Mass/Vol] 3.6 g/dL 2.2-4.2 [facility] Serum or plasma albumin elmira urement (mass/volume)Ordered By: Dr. Anders on 04-12-2022 Albumin [Mass/Vol] 3.0 g/dL 3.2-5.0 [facility] Serum or plasma albumin/glob ulin mass ratioOrdered By: Dr. Anders on 04-12-2022 Albumin/Globulin [Mass ratio] 0.8 {ratio} 0.9-2.4 [facility] Thin prep Papanicolaou smear with manual screeningOrdered By: Dr. Anders on 04-12-2022 Thin prep Papanicolaou smear with manual screening 20 U/L 15-37 [facility] Absolute lymphocyte countOrd ered By: Dr. Yan on 04-11-2022 Lymphocytes Auto (Unsp spec) [#/Vol] 1.04 10*3/uL 0.83-4.51 [facility] Basophil percentageOrdered B y: Dr. Yan on 04-11-2022 Basophils/100 WBC (Bld) 0.4 % 0-1 [facility] Chloride [Moles/Vol] 110 mmol/L 98-107 [facility] Eosinophils/100 WBC (Bld) 4.3 % 0-5 [facility] Glucose [Mass/Vol] 160 mg/dL 74-106 [facility] Comment on above: Fasting Glucose resu lt greater than or equal to 126 mg/dL suggests DIABETES MELLITUS per A.D.A. criteria. Neutrophils (Bld) [#/Vol] 3.1 10*3/uL 2.0-7.7 [facility] Neutrophils/100 WBC (Bld) 66.7 % 47-70 [facility] Potassium [Moles/Vol] 4.7 mmol/L 3.5-5.1 [facility] Sodium [Moles/Vol] 145 mmol/L 136-145 [facility] WBC (Bld) [#/Vol] 4.6 10*3/uL 4.4-11.0 [facility] Blood erythrocytes count (nu mber/volume)Ordered By: Dr. Yan on 04-11-2022 RBC (Bld) [#/Vol] 3.31 10*6/uL 4.6-6.2 [facility] Blood hemoglobin measurement (mass/volume)Ordered By: Dr. Yan on 04-11-2022 Hemoglobin (Bld) [Mass/Vol] 9.8 g/dL 13.0-16.5 [facility] Blood lymphocytes/100 leukoc ytesOrdered By: Dr. Yan on 04-11-2022 Lymphocytes/100 WBC (Bld) 22.4 % 19-41 [facility] Blood monocytes/100 leukocyt esOrdered By: Dr. Yan on 04-11-2022 Monocytes/100 WBC (Bld) 6.0 % 0-10 [facility] Blood platelet mean volumeOr dered By: Dr. Yan on 04-11-2022 Platelet mean volume (Bld) [Entitic vol] 11.2 fL 6.2-12.0 [facility] Determination of erythrocyte mean corpuscular volume (MCV)Ordered By: Dr. Yan on 04-11-2022 MCV (RBC) [Entitic vol] 96.4 fL 80-94 [facility] Hematocrit Auto (Bld) [Volum e fraction]Ordered By: Dr. Yan on 04-11-2022 Hematocrit (Bld) [Volume fraction] 31.9 % 40-54 [facility] Laboratory - Chemistry and C hemistry - challengeOrdered By: Dr. Yan on 04-11-2022 CO2 [Moles/Vol] 30.0 mmol/L 21.0-32.0 [facility] Natriuretic peptide B (Bld) [Mass/Vol] 311.3 pg/mL 0-100 [facility] Urea nitrogen/Creatinine [Mass ratio] 17.7 mg/mg 10-20 [facility] Laboratory - Hematology and Cell countsOrdered By: Dr. Yan on 04-11-2022 Erythrocyte distribution width (RBC) [Entitic vol] 48.2 fL 35.1-43.9 [facility] Erythrocyte distribution width (RBC) [Ratio] 13.6 % 11.6-14.6 [facility] Immature granulocytes/100 WBC (Bld) 0.200 % 0.0-0.9 [facility] Comment on above: IG% - Immature Granu locytes (promyelocytes, myelocytes and metamyelocytes) > 1% indicates that a LEFT SHIFT is Present. MCH (RBC) [Entitic mass] 29.6 pg 27.0-32.0 [facility] Nucleated RBC/100 WBC (Bld) [Ratio] 0 % 0-5 [facility] MCHC Auto (RBC) [Mass/Vol]Or dered By: Dr. Yan on 04-11-2022 MCHC (RBC) [Mass/Vol] 30.7 g/dL 32-36 [facility] No Panel InformationOrdered By: Dr. Yan on 04-11-2022 Troponin I High Sensitivity 27 pg/mL 3.0-78.0 [facility] Comment on above: Please Note: New Arti t Units and Gender Specific Reference Ranges. For more information see Policy Stat Procedure [place] High Sensitivity Troponin (TNIH) and attachments. Estimated Creatinine Clearance Calc 35.14 ml/min [facility] Estimated GFR (MDRD) Amer 62 mL/min >60 [facility] Comment on above: GFR Calc Estimated GFR (MDRD) Non-Af Amer 51 mL/min >60 [facility] Comment on above: Non- GFR Calc Platelets bldOrdered By: Dr. Yan on 04-11-2022 Platelets (Bld) [#/Vol] 108 10*3/uL 150-450 [facility] Serum or plasma calcium elmira urement (mass/volume)Ordered By: Dr. Yan on 04-11-2022 Calcium [Mass/Vol] 9.1 mg/dL 8.5-10.1 [facility] Serum or plasma creatinine m easurement (mass/volume)Ordered By: Dr. Yan on 04-11-2022 Creatinine [Mass/Vol] 1.41 mg/dL 0.70-1.30 [facility] Comment on above: The validity of the calculated GFR & GFRAA in patients over 70 years has not been determined. Clinical correlation is essential. Serum or plasma urea nitroge n measurement (mass/volume)Ordered By: Dr. Yan on 04-11-2022 Urea nitrogen [Mass/Vol] 25 mg/dL 7-18 [facility] Thin prep Papanicolaou smear with manual screeningOrdered By: Dr. Yan on 04-11-2022 Thin prep Papanicolaou smear with manual screening 5 5-15 [facility] LABORATORYOrdered By: SYSTEM SYSTEM on 03-22-2022 Albumin [...] Auto (Unsp spec) [#/Vol] 1.66 10*3/uL 0.83-4.51 [facility] Basophil percentageOrdered B y: Dr. Blunt on 03-16-2022 Basophils/100 WBC (Bld) 0.5 % 0-1 [facility] Chloride [Moles/Vol] 102 mmol/L 98-107 [facility] Eosinophils/100 WBC (Bld) 4.6 % 0-5 [facility] Glucose [Mass/Vol] 141 mg/dL 74-106 [facility] Comment on above: Fasting Glucose resu lt greater than or equal to 126 mg/dL suggests DIABETES MELLITUS per A.D.A. criteria. Neutrophils (Bld) [#/Vol] 3.8 10*3/uL 2.0-7.7 [facility] Neutrophils/100 WBC (Bld) 59.6 % 47-70 [facility] Potassium [Moles/Vol] 4.1 mmol/L 3.5-5.1 [facility] Sodium [Moles/Vol] 144 mmol/L 136-145 [facility] WBC (Bld) [#/Vol] 6.4 10*3/uL 4.4-11.0 [facility] Blood erythrocytes count (nu mber/volume)Ordered By: Dr. Blunt on 03-16-2022 RBC (Bld) [#/Vol] 3.44 10*6/uL 4.6-6.2 [facility] Blood hemoglobin measurement (mass/volume)Ordered By: Dr. Blunt on 03-16-2022 Hemoglobin (Bld) [Mass/Vol] 10.3 g/dL 13.0-16.5 [facility] Blood lymphocytes/100 leukoc ytesOrdered By: Dr. Blunt on 03-16-2022 Lymphocytes/100 WBC (Bld) 26.1 % 19-41 [facility] Blood monocytes/100 leukocyt esOrdered By: Dr. Blunt on 03-16-2022 Monocytes/100 WBC (Bld) 9.0 % 0-10 [facility] Blood platelet mean volumeOr dered By: Dr. Blunt on 03-16-2022 Platelet mean volume (Bld) [Entitic vol] 11.8 fL 6.2-12.0 [facility] Determination of erythrocyte mean corpuscular volume (MCV)Ordered By: Dr. Blunt on 03-16-2022 MCV (RBC) [Entitic vol] 95.6 fL 80-94 [facility] Glucose Glucometer (BldC) [M ass/Vol]Ordered By: Dr. Anders on 03-16-2022 Glucose [Mass/Vol] 137 mg/dL 74-106 [facility] Comment on above: MANAGEMENT OF PATIEN T CARE PER NURSING PROTOCOL Hematocrit Auto (Bld) [Volum e fraction]Ordered By: Dr. Blunt on 03-16-2022 Hematocrit (Bld) [Volume fraction] 32.9 % 40-54 [facility] INR in Blood by Coagulation assayOrdered By: Dr. Blunt on 03-16-2022 INR Coag (Bld) [Relative time] 1.2 {INR} [facility] Laboratory - Chemistry and C hemistry - challengeOrdered By: Dr. Blunt on 03-16-2022 CO2 [Moles/Vol] 35.0 mmol/L 21.0-32.0 [facility] Urea nitrogen/Creatinine [Mass ratio] 34.1 mg/mg 10-20 [facility] Laboratory - CoagulationOrde red By: Dr. Blunt on 03-16-2022 aPTT Coag (Bld) [Time] 40.9 s 24.1-36.2 [facility] PT Coag (PPP) [Time] 14.5 s 11.7-14.9 [facility] Laboratory - Hematology and Cell countsOrdered By: Dr. Blunt on 03-16-2022 Erythrocyte distribution width (RBC) [Entitic vol] 50.6 fL 35.1-43.9 [facility] Erythrocyte distribution width (RBC) [Ratio] 14.6 % 11.6-14.6 [facility] Immature granulocytes/100 WBC (Bld) 0.200 % 0.0-0.9 [facility] Comment on above: IG% - Immature Granu locytes (promyelocytes, myelocytes and metamyelocytes) > 1% indicates that a LEFT SHIFT is Present. MCH (RBC) [Entitic mass] 29.9 pg 27.0-32.0 [facility] Nucleated RBC/100 WBC (Bld) [Ratio] 0.3 % 0-5 [facility] MCHC Auto (RBC) [Mass/Vol]Or dered By: Dr. Blunt on 03-16-2022 MCHC (RBC) [Mass/Vol] 31.3 g/dL 32-36 [facility] No Panel InformationOrdered By: Dr. Blunt on 03-16-2022 Estimated Creatinine Clearance Calc 24.17 ml/min [facility] Estimated GFR (MDRD) Amer 40 mL/min >60 [facility] Comment on above: GFR Calc Estimated GFR (MDRD) Non-Af Amer 33 mL/min >60 [facility] Comment on above: Non- GFR Calc Platelets bldOrdered By: Dr. Blunt on 03-16-2022 Platelets (Bld) [#/Vol] 116 10*3/uL 150-450 [facility] Serum or plasma calcium elmira urement (mass/volume)Ordered By: Dr. Blunt on 03-16-2022 Calcium [Mass/Vol] 9.0 mg/dL 8.5-10.1 [facility] Serum or plasma creatinine m easurement (mass/volume)Ordered By: Dr. Blunt on 03-16-2022 Creatinine [Mass/Vol] 2.05 mg/dL 0.70-1.30 [facility] Comment on above: The validity of the calculated GFR & GFRAA in patients over 70 years has not been determined. Clinical correlation is essential. Serum or plasma urea nitroge n measurement (mass/volume)Ordered By: Dr. Blunt on 03-16-2022 Urea nitrogen [Mass/Vol] 70 mg/dL 7-18 [facility] Thin prep Papanicolaou smear with manual screeningOrdered By: Dr. Blunt on 03-16-2022 Thin prep Papanicolaou smear with manual screening 7 5-15 [facility] Influenza virus A and B and SARS-CoV-2 (COVID-19) Ag panel - Upper respiratory specimOrdered By: Dr. Lester on 03-12-2022 SARS-CoV-2 (COVID-19) RNA JOSH+probe Ql (Resp) [facility] Laboratory - Chemistry and C hemistry - challengeOrdered By: Dr. Lester on 03-12-2022 Natriuretic peptide B (Bld) [Mass/Vol] 285.7 pg/mL 0-100 [facility] No Panel InformationOrdered By: Dr. Rodriguez on 03-12-2022 Troponin I High Sensitivity 640 pg/mL 3.0-78.0 [facility] Comment on above: Critical Result(s) C alled at: 10:23:02 03/12/2022 by: Didier Xiao to [place]. Results read back by same. Please Note: New Test Units and Gender Specific Reference Ranges. For more information see Policy Stat Procedure [place] High Sensitivity Troponin (TNIH) and attachments. LABORATORYOrdered [...] 12-16-2021 SARS-CoV-2 (COVID-19) Ag IA.rapid Ql (Resp) [facility] Glucose Glucometer (BldC) [M ass/Vol]Ordered By: Dr. Alcantara on 12-16-2021 Glucose [Mass/Vol] 207 mg/dL 74-106 [facility] Comment on above: MANAGEMENT OF PATIEN T CARE PER NURSING PROTOCOL Absolute lymphocyte countOrd ered By: Dr. Alcantara on 12-15-2021 Lymphocytes Auto (Unsp spec) [#/Vol] 1.50 10*3/uL 0.83-4.51 [facility] Basophil percentageOrdered B y: Dr. Alcantara on 12-15-2021 Basophils/100 WBC (Bld) 0.1 % 0-1 [facility] Chloride [Moles/Vol] 108 mmol/L 98-107 [facility] Eosinophils/100 WBC (Bld) 2.9 % 0-5 [facility] Glucose [Mass/Vol] 170 mg/dL 74-106 [facility] Comment on above: Fasting Glucose resu lt greater than or equal to 126 mg/dL suggests DIABETES MELLITUS per A.D.A. criteria. Neutrophils (Bld) [#/Vol] 6.5 10*3/uL 2.0-7.7 [facility] Neutrophils/100 WBC (Bld) 71.9 % 47-70 [facility] Potassium [Moles/Vol] 4.2 mmol/L 3.5-5.1 [facility] Sodium [Moles/Vol] 140 mmol/L 136-145 [facility] WBC (Bld) [#/Vol] 9.0 10*3/uL 4.4-11.0 [facility] Blood erythrocytes count (nu mber/volume)Ordered By: Dr. Alcantara on 12-15-2021 RBC (Bld) [#/Vol] 3.61 10*6/uL 4.6-6.2 [facility] Blood hemoglobin measurement (mass/volume)Ordered By: Dr. Alcantara on 12-15-2021 Hemoglobin (Bld) [Mass/Vol] 11.3 g/dL 13.0-16.5 [facility] Blood lymphocytes/100 leukoc ytesOrdered By: Dr. Alcantara on 12-15-2021 Lymphocytes/100 WBC (Bld) 16.7 % 19-41 [facility] Blood monocytes/100 leukocyt esOrdered By: Dr. Alcantara on 12-15-2021 Monocytes/100 WBC (Bld) 6.7 % 0-10 [facility] Blood platelet mean volumeOr dered By: Dr. Alcantara on 12-15-2021 Platelet mean volume (Bld) [Entitic vol] 10.3 fL 6.2-12.0 [facility] Determination of erythrocyte mean corpuscular volume (MCV)Ordered By: Dr. Alcantara on 12-15-2021 MCV (RBC) [Entitic vol] 92.5 fL 80-94 [facility] Hematocrit Auto (Bld) [Volum e fraction]Ordered By: Dr. Alcantara on 12-15-2021 Hematocrit (Bld) [Volume fraction] 33.4 % 40-54 [facility] Laboratory - Chemistry and C hemistry - challengeOrdered By: Dr. Alcantara on 12-15-2021 CO2 [Moles/Vol] 27.0 mmol/L 21.0-32.0 [facility] Natriuretic peptide B (Bld) [Mass/Vol] 116.1 pg/mL 0-100 [facility] Urea nitrogen/Creatinine [Mass ratio] 44.6 mg/mg 10-20 [facility] Laboratory - Hematology and Cell countsOrdered By: Dr. Alcantara on 12-15-2021 Erythrocyte distribution width (RBC) [Entitic vol] 43.8 fL 35.1-43.9 [facility] Erythrocyte distribution width (RBC) [Ratio] 12.9 % 11.6-14.6 [facility] Immature granulocytes/100 WBC (Bld) 1.700 % 0.0-0.9 [facility] Comment on above: IG% - Immature Granu locytes (promyelocytes, myelocytes and metamyelocytes) > 1% indicates that a LEFT SHIFT is Present. MCH (RBC) [Entitic mass] 31.3 pg 27.0-32.0 [facility] Nucleated RBC/100 WBC (Bld) [Ratio] 0 % 0-5 [facility] MCHC Auto (RBC) [Mass/Vol]Or dered By: Dr. Alcantara on 12-15-2021 MCHC (RBC) [Mass/Vol] 33.8 g/dL 32-36 [facility] No Panel InformationOrdered By: Dr. Alcantara on 12-15-2021 Estimated Creatinine Clearance Calc 38.11 ml/min [facility] Estimated GFR (MDRD) Amer 68 mL/min >60 [facility] Comment on above: GFR Calc Estimated GFR (MDRD) Non-Af Amer 56 mL/min >60 [facility] Comment on above: Non- GFR Calc Thyroid Stimulating Hormone (TSH) 3.74 uIU/mL 0.358-3.74 [facility] Platelets bldOrdered By: Dr. Alcantara on 12-15-2021 Platelets (Bld) [#/Vol] 155 10*3/uL 150-450 [facility] Serum or plasma calcium elmira urement (mass/volume)Ordered By: Dr. Alcantara on 12-15-2021 Calcium [Mass/Vol] 8.8 mg/dL 8.5-10.1 [facility] Serum or plasma creatinine m easurement (mass/volume)Ordered By: Dr. Alcantara on 12-15-2021 Creatinine [Mass/Vol] 1.30 mg/dL 0.70-1.30 [facility] Comment on above: The validity of the calculated GFR & GFRAA in patients over 70 years has not been determined. Clinical correlation is essential. Serum or plasma urea nitroge n measurement (mass/volume)Ordered By: Dr. Alcantara on 12-15-2021 Urea nitrogen [Mass/Vol] 58 mg/dL 7-18 [facility] Thin prep Papanicolaou smear with manual screeningOrdered By: Dr. Alcantara on 12-15-2021 Thin prep Papanicolaou smear with manual screening 5 5-15 [facility] Basophil percentageOrdered B y: Dr. Angel on 12-14-2021 Bilirubin [Mass/Vol] 0.40 mg/dL 0.20-1.00 [facility] Comment on above: For patients on eltr ombopag therapy, use of Dimension [place] TBIL is not recommended. Protein [Mass/Vol] 6.2 g/dL 6.4-8.2 [facility] Laboratory - Chemistry and C hemistry - challengeOrdered By: Dr. Angel on 12-14-2021 ALP [Catalytic activity/Vol] 76 U/L 45-117 [facility] ALT [Catalytic activity/Vol] 43 U/L 16-61 [facility] Globulin (S) [Mass/Vol] 4.3 g/dL 2.2-4.2 [facility] Serum or plasma albumin elmira urement (mass/volume)Ordered By: Dr. Angel on 12-14-2021 Albumin [Mass/Vol] 1.9 g/dL 3.2-5.0 [facility] Serum or plasma albumin/glob ulin mass ratioOrdered By: Dr. Angel on 12-14-2021 Albumin/Globulin [Mass ratio] 0.4 {ratio} 0.9-2.4 [facility] Thin prep Papanicolaou smear with manual screeningOrdered By: Dr. Angel on 12-14-2021 Thin prep Papanicolaou smear with manual screening 34 U/L 15-37 [facility] Comment on above: Slight Hemolysis, Re sult may be falsely increased. Basophil percentageOrdered B y: Dr. Villanueva on 12-13-2021 Basophil percentage 0 SEEN /hpf 0-5 [facility] Bilirubin Test strip Ql (U)O rdered By: Dr. Villanueva on 12-13-2021 Bilirubin Ql (U) Negative Negative [facility] Erythrocyte sedimentation ra teOrdered By: Dr. Villanueva on 12-13-2021 ESR (Bld) [Velocity] 101 mm/h 0-20 [facility] INR in Blood by Coagulation assayOrdered By: Dr. Angel on 12-13-2021 INR Coag (Bld) [Relative time] 1.2 {INR} [facility] Ketones Test strip Ql (U)Ord ered By: Dr. Villanueva on 12-13-2021 Ketones Ql (U) Negative Negative [facility] Laboratory - CoagulationOrde red By: Dr. Angel on 12-13-2021 aPTT Coag (Bld) [Time] 26.2 s 24.1-36.2 [facility] PT Coag (PPP) [Time] 14.7 s 11.7-14.9 [facility] Mucus LM Ql (Urine sed)Order ed By: Dr. Villanueva on 12-13-2021 Mucus Ql (Urine sed) 0 SEEN /hpf [facility] Nitrite Test strip Ql (U)Ord ered By: Dr. Villanueva on 12-13-2021 Nitrite Ql (U) Negative Negative [facility] Protein Test strip Ql (U)Ord ered By: Dr. Villanueva on 12-13-2021 Protein Ql (U) 100 mg/dl Negative [facility] Serum or plasma C reactive p rotein measurement (mass/volume)Ordered By: Dr. Villanueva on 12-13-2021 CRP [Mass/Vol] 87.40 mg/L 0.0-3.0 [facility] Comment on above: C-Reactive Protein ( CRP) provides useful information for thediagnosis, therapy and monitoring of inflammatory processesand associated diseases. For the evaluation of Relative Riskfor Cardiovascular Disease, a High Sensitivity CRP (HSCRP)should be ordered. Serum or plasma uric acid me asurement (mass/volume)Ordered By: Dr. Villanueva on 12-13-2021 Urate [Mass/Vol] 9.4 mg/dL 3.5-7.2 [facility] Comment on above: The drugs N-Acetylcy steine and Metamizole may falsely depress this assay. Serum procalcitonin measurem entOrdered By: Dr. Angel on 12-13-2021 Procalcitonin [Mass/Vol] 0.37 ng/mL 0.00-0.09 [facility] Comment on above: A procalcitonin (PCT ) [...] Ql (Urine sed) 0 SEEN /hpf 0-5 [facility] Urine blood detectionOrdered By: Dr. Villanueva on 12-13-2021 RBC Ql (U) 50 /ul Negative [facility] RBC Ql (U) 0-5 SEEN /hpf 0-5 [facility] Urine clarityOrdered By: Dr. Villanueva on 12-13-2021 Clarity (U) Clear Clear [facility] Urine color determinationOrd ered By: Dr. Villanueva on 12-13-2021 Color (U) Yellow Yellow [facility] Urine glucose detectionOrder ed By: Dr. Villanueva on 12-13-2021 Glucose Ql (U) Normal mg/dl Normal [facility] Urine leukocyte esterase det ection by dipstickOrdered By: Dr. Villanueva on 12-13-2021 Leukocyte esterase Test strip Ql (U) Negative Negative [facility] Urine pHOrdered By: Dr. Villanueva o n 12-13-2021 pH (U) 6.0 [pH] 5.0 - 8.0 [facility] Urine sediment bacteria coun t by microscopy (number/high power field)Ordered By: Dr. Villanueva on 12-13-2021 Bacteria LM.HPF (Urine sed) [#/Area] 0 /[HPF] None Seen [facility] Urine specific gravity measu rementOrdered By: Dr. Villanueva on 12-13-2021 Specific gravity (U) [Rel density] 1.015 1.002-1.030 [facility] Urobilinogen Auto test strip Ql (U)Ordered By: Dr. Villanueva on 12-13-2021 Urobilinogen Ql (U) Normal mg/dl Normal [facility] Absolute lymphocyte counton 12-08-2021 Lymphocytes Auto (Unsp spec) [#/Vol] 0.86 10*3/uL 0.83-4.51 [facility] Work Phone: Basophil percentageon 2021 Basophils/100 WBC (Bld) 0.2 % 0-1 [facility] Work Phone: Bilirubin [Mass/Vol] 1.30 mg/dL 0.20-1.00 [facility] Work Phone: Comment on above: For patients on eltr ombopag therapy, use of Dimension [place] TBIL is not recommended. Chloride [Moles/Vol] 105 mmol/L 98-107 [facility] Work Phone: Eosinophils/100 WBC (Bld) 0.2 % 0-5 [facility] Work Phone: Glucose [Mass/Vol] 205 mg/dL 74-106 [facility] Work Phone: Comment on above: Glucose result great er than or equal to 200 mg/dLsuggests DIABETES MELLITUS per A.D.A. criteria. Neutrophils (Bld) [#/Vol] 10.0 10*3/uL 2.0-7.7 [facility] Work Phone: Neutrophils/100 WBC (Bld) 84.4 % 47-70 [facility] Work Phone: Potassium [Moles/Vol] 4.3 mmol/L 3.5-5.1 [facility] Work Phone: Protein [Mass/Vol] 7.1 g/dL 6.4-8.2 [facility] Work Phone: Sodium [Moles/Vol] 139 mmol/L 136-145 [facility] Work Phone: WBC (Bld) [#/Vol] 11.9 10*3/uL 4.4-11.0 [facility] Work Phone: Blood erythrocytes count (nu mber/volume)on 12-08-2021 RBC (Bld) [#/Vol] 4.36 10*6/uL 4.6-6.2 [facility] Work Phone: Blood hemoglobin measurement (mass/volume)on 12-08-2021 Hemoglobin (Bld) [Mass/Vol] 13.2 g/dL 13.0-16.5 [facility] Work Phone: Blood lymphocytes/100 leukoc yteson 12-08-2021 Lymphocytes/100 WBC (Bld) 7.3 % 19-41 [facility] Work Phone: Blood monocytes/100 leukocyt eson 12-08-2021 Monocytes/100 WBC (Bld) 7.3 % 0-10 [facility] Work Phone: Blood platelet mean volumeon 12-08-2021 Platelet mean volume (Bld) [Entitic vol] 10.5 fL 6.2-12.0 [facility] Work Phone: Determination of erythrocyte mean corpuscular volume (MCV)on 12-08-2021 MCV (RBC) [Entitic vol] 92.2 fL 80-94 [facility] Work Phone: Erythrocyte sedimentation ra donnell 12-08-2021 ESR (Bld) [Velocity] 31 mm/h 0-20 [facility] Work Phone: Hematocrit Auto (Bld) [Volum e fraction]on 12-08-2021 Hematocrit (Bld) [Volume fraction] 40.2 % 40-54 [facility] Work Phone: Laboratory - Chemistry and C hemistry - challengeon 12-08-2021 ALP [Catalytic activity/Vol] 70 U/L 45-117 [facility] Work Phone: ALT [Catalytic activity/Vol] 16 U/L 16-61 [facility] Work Phone: CO2 [Moles/Vol] 27.0 mmol/L 21.0-32.0 [facility] Work Phone: Globulin (S) [Mass/Vol] 4.4 g/dL 2.2-4.2 [facility] Work Phone: [phone] Urea nitrogen/Creatinine [Mass ratio] 22.0 mg/mg 10-20 [facility] Work Phone: [phone] Laboratory - Hematology and Cell countson 12-08-2021 Erythrocyte distribution width (RBC) [Entitic vol] 43.1 fL 35.1-43.9 [facility] Work Phone: [phone] Erythrocyte distribution width (RBC) [Ratio] 12.7 % 11.6-14.6 [facility] Work Phone: [phone] Immature granulocytes/100 WBC (Bld) 0.600 % 0.0-0.9 [facility] Work Phone: [phone] Comment on above: IG% - Immature Granu locytes (promyelocytes, myelocytes and metamyelocytes) > 1% indicates that a LEFT SHIFT is Present. MCH (RBC) [Entitic mass] 30.3 pg 27.0-32.0 [facility] Work Phone: [phone] Nucleated RBC/100 WBC (Bld) [Ratio] 0 % 0-5 [facility] Work Phone: [phone] MCHC Auto (RBC) [Mass/Vol]on 12-08-2021 MCHC (RBC) [Mass/Vol] 32.8 g/dL 32-36 [facility] Work Phone: [phone] No Panel Informationon 12-08 Estimated Creatinine Clearance Calc 31.16 ml/min [facility] Work Phone: [phone] Estimated GFR (MDRD) Amer 54 mL/min >60 [facility] Work Phone: [phone] Comment on above: GFR Calc Estimated GFR (MDRD) Non-Af Amer 45 mL/min >60 [facility] Work Phone: [phone] Comment on above: Non- GFR Calc Platelets bldon 12-08-2021 Platelets (Bld) [#/Vol] 112 10*3/uL 150-450 [facility] Work Phone: [phone] Serum or plasma C reactive p rotein measurement (mass/volume)on 12-08-2021 CRP [Mass/Vol] 108.00 mg/L 0.0-3.0 [facility] Work Phone: Comment on above: C-Reactive Protein ( CRP) provides useful information for thediagnosis, therapy and monitoring of inflammatory processesand associated diseases. For the evaluation of Relative Riskfor Cardiovascular Disease, a High Sensitivity CRP (HSCRP)should be ordered. Serum or plasma albumin elmira urement (mass/volume)on 12-08-2021 Albumin [Mass/Vol] 2.7 g/dL 3.2-5.0 [facility] Work Phone: Serum or plasma albumin/glob ulin mass ratioon 12-08-2021 Albumin/Globulin [Mass ratio] 0.6 {ratio} 0.9-2.4 [facility] Work Phone: Serum or plasma calcium elmira urement (mass/volume)on 12-08-2021 Calcium [Mass/Vol] 9.3 mg/dL 8.5-10.1 [facility] Work Phone: Serum or plasma creatinine m easurement (mass/volume)on 12-08-2021 Creatinine [Mass/Vol] 1.59 mg/dL 0.70-1.30 [facility] Work Phone: Comment on above: The validity of the calculated GFR & GFRAA in patients over 70 years has not been determined. Clinical correlation is essential. Serum or plasma urea nitroge n measurement (mass/volume)on 12-08-2021 Urea nitrogen [Mass/Vol] 35 mg/dL 7-18 [facility] Work Phone: Serum or plasma uric acid me asurement (mass/volume)on 12-08-2021 Urate [Mass/Vol] 8.5 mg/dL 3.5-7.2 [facility] Work Phone: Comment on above: The drugs N-Acetylcy steine and Metamizole may falsely depress this assay. Thin prep Papanicolaou smear with manual screeningon 12-08-2021 Thin prep Papanicolaou smear with manual screening 14 U/L 15-37 [facility] Work Phone: Thin prep Papanicolaou smear with manual screening 7 07-24 [facility] Work Phone: LABORATORYOrdered By: Abigail Bailey on [...] 11-28-2018 TSH Qn 3.31 mcIU/mL Normal 0.36-3.74 [facility] Comment on above: Performed By: #### T #### [facility] [address] [place] [address] COVID-19 virus antigen assay SARS-CoV-2 (COVID-19) Ag IA.rapid Ql (Resp) [facility] Work Phone: Influenza virus A and B and SARS-CoV-2 (COVID-19) Ag panel - Upper respiratory specim SARS-CoV-2 (COVID-19) RNA JOSH+probe Ql (Resp) [facility] Work Phone: Vital Signs Date Time Vital Sign Value Performing Clinician Facility 06-25-2024 14:14-0400 Body temperature 98 [degF] Dr. Yuridia Hernandez MD Work Phone: [facility] 06-25-2024 14:14-0400 Diastolic blood pressure 67 mm[Hg] Dr. Yuridia Hernandez MD Work Phone: [facility] 06-25-2024 14:14-0400 Heart rate 80 /min Dr. Yuridia Hernandez MD Work Phone: [facility] 06-25-2024 14:14-0400 Inhaled oxygen flow rate 1.5 L/min Dr. Yuridia Hernandez MD Work Phone: [facility] 06-25-2024 14:14-0400 Respiratory rate 16 /min Dr. Yuridia Hernandez MD Work Phone: [facility] 06-25-2024 14:14-0400 SaO2% (BldA) [Mass fraction] 98 % Dr. Yuridia Hernandez MD Work Phone: [facility] 06-25-2024 14:14-0400 Systolic blood pressure 106 mm[Hg] Dr. Yuridia Hernandez MD Work Phone: 7(808)205-651840 [place] [address] 06-24-2024 14:11-0400 Body height 165.[address] Yuridia Hernandez MD Work Phone: 7(368)759-746240 [place] [address] 06-24-2024 14:11-0400 Body weight 82.[address] Yuridia Hernandez MD Work Phone: 1(214)458-124540 [place] [address] 06-23-2024 18:43-0400 Body mass index (BMI) [Ratio] 30.1 kg/m2 Dr. Yuridia Hernandez MD Work Phone: 0(698)863-266940 [place] [address] 06-23-2024 18:00-0400 Diastolic blood pressure 82 mm[Hg] Dr. Yuridia Hernandez MD Work Phone: 9(470)033-550740 [place] [address] 06-23-2024 18:00-0400 Heart rate 104 /min Dr. Yuridia Hernandez MD Work Phone: 3(616)985-355340 [place] [address] 06-23-2024 18:00-0400 Respiratory rate 27 /min Dr. Yuridia Hernandez MD Work Phone: 2(947)216-104140 [place] [address] 06-23-2024 18:00-0400 SaO2% (BldA) [Mass fraction] 98 % Dr. Yuridia Hernandez MD Work Phone: 4(726)649-603040 [place] [address] 06-23-2024 18:00-0400 Systolic blood pressure 109 mm[Hg] Dr. Yuridia Hernandez MD Work Phone: 2(280)327-768740 [place] [address] 06-23-2024 17:33-0400 Body temperature 98 [degF] Dr. Yuridia Hernandez MD Work Phone: 9(654)934-810140 [place] [address] 06-23-2024 16:00-0400 Inhaled oxygen flow rate 2 L/min Dr. Yuridia Hernandez MD Work Phone: 6(300)096-349940 [place] [address] 06-23-2024 14:28-0400 Body height 165.[address] Yuridia Hernandez MD Work Phone: 1(478)617-475440 [place] [address] 06-23-2024 14:28-0400 Body mass index (BMI) [Ratio] 30.2 kg/m2 Dr. Yuridia Hernandez MD Work Phone: [facility] 06-23-2024 14:28-0400 Body weight 82.[address] Yuridia Hernandez MD Work Phone: [facility] 05-28-2024 15:44-0400 Body mass index (BMI) [Ratio] 30.1 kg/m2 Dr. Yuridia Hernandez MD Work Phone: 4(436)819-614574 [place] [address] 05-28-2024 15:44-0400 Body temperature 98.6 [degF] Dr. Yuridia Hernandez MD Work Phone: 4(663)123-134374 [place] [address] 05-28-2024 15:44-0400 Body weight 82.[address] Yuridia Hernandez MD Work Phone: 9(555)188-388474 [place] [address] 05-28-2024 15:44-0400 Diastolic blood pressure 54 mm[Hg] Dr. Yuridia Hernandez MD Work Phone: 3(583)714-423474 [place] [address] 05-28-2024 15:44-0400 Heart rate 95 /min Dr. Yuridia Hernandez MD Work Phone: 8(896)019-366574 [place] [address] 05-28-2024 15:44-0400 Inhaled oxygen flow rate 3 L/min Dr. Yuridia Hernandez MD Work Phone: 0(317)684-353874 [place] [address] 05-28-2024 15:44-0400 Respiratory rate 20 /min Dr. Yuridia Hernandez MD Work Phone: [facility] 05-28-2024 15:44-0400 SaO2% (BldA) [Mass fraction] 93 % Dr. Yuriida Hernandez MD Work Phone: 7(136)873-420874 [place] [address] 05-28-2024 15:44-0400 Systolic blood pressure 139 mm[Hg] Dr. Yuridia Hernandez MD Work Phone: 8(750)042-580974 [place] [address] 04-02-2024 15:56-0500 Body temperature 98 [degF] Dr. Yuridia Hernandez MD Work Phone: 1(343)304-843974 [place] [address] 04-02-2024 15:56-0500 Diastolic blood pressure 62 mm[Hg] Dr. Yuridia Hernandez MD Work Phone: [facility] 04-02-2024 15:56-0500 Heart rate 98 /min Dr. Yuridia Hernandez MD Work Phone: [facility] 04-02-2024 15:56-0500 Inhaled oxygen flow rate 2 L/min Dr. Yuridia Hernandez MD Work Phone: 0(513)719-683774 [place] [address] 04-02-2024 15:56-0500 Respiratory rate 18 /min Dr. Yuridia Hernandez MD Work Phone: 9(060)184-575340 [place] [address] 04-02-2024 15:56-0500 SaO2% (BldA) [Mass fraction] 95 % Dr. Yuridia Hernandez MD Work Phone: 9(890)088-701817 [address] 04-02-2024 15:56-0500 Systolic blood pressure 124 mm[Hg] Dr. Yuridia Hernandez MD Work Phone: 0(535)182-636840 [place] [address] 03-24-2024 15:39-0500 Body mass index (BMI) [Ratio] 30.3 kg/m2 Dr. Yuridia Hernandez MD Work Phone: 1(246)491-785940 [place] [address] 03-24-2024 15:39-0500 Body weight 82.[address] Yuridia Hernandez MD Work Phone: 8(347)265-773074 [place] [address] 03-24-2024 15:34-0500 Body temperature 98.8 [degF] Dr. Yuridia Hernandez MD Work Phone: 0(830)303-188774 [place] [address] 03-24-2024 15:34-0500 Diastolic blood pressure 55 mm[Hg] Dr. Yuridia Hernandez MD Work Phone: 0(368)036-444574 [place] [address] 03-24-2024 15:34-0500 Heart rate 88 /min Dr. Yuridia Hernandez MD Work Phone: [facility] 03-24-2024 15:34-0500 Inhaled oxygen flow rate 3 L/min Dr. Yuridia Hernandez MD Work Phone: 1(125)931-951574 [place] [address] 03-24-2024 15:34-0500 Respiratory rate 18 /min Dr. Yuridia Hernandez MD Work Phone: [facility] 03-24-2024 15:34-0500 SaO2% (BldA) [Mass fraction] 93 % Dr. Yuridia Hernandez MD Work Phone: [facility] 03-24-2024 15:34-0500 Systolic blood pressure 124 mm[Hg] Dr. Yuridia Hernandez MD Work Phone: 3(812)314-119174 [place] [address] 03-02-2024 09:23-0500 Heart rate 96 /min Dr. Yuridia Hernandez MD Work Phone: 9(983)301-728417 [address] 03-02-2024 09:22-0500 Body temperature 97.7 [degF] Dr. Yuridia Hernandez MD Work Phone: 6(044)071-560217 [address] 03-02-2024 09:22-0500 Diastolic blood pressure 56 mm[Hg] Dr. Yuridia Hernandez MD Work Phone: 9(336)339-164217 [address] 03-02-2024 09:22-0500 Inhaled oxygen flow rate 2 L/min Dr. Yuridia Hernandez MD Work Phone: 7(509)442-853474 [place] [address] 03-02-2024 09:22-0500 Respiratory rate 20 /min Dr. Yuridia Hernandez MD Work Phone: 7(374)133-425474 [place] [address] 03-02-2024 09:22-0500 SaO2% (BldA) [Mass fraction] 98 % Dr. Yuridia Hernandez MD Work Phone: 5(558)910-425074 [place] [address] 03-02-2024 09:22-0500 Systolic blood pressure 114 mm[Hg] Dr. Yuridia Hernandez MD Work Phone: 2(377)735-209217 [address] 03-02-2024 04:41-0500 Body mass index (BMI) [Ratio] 30.6 kg/m2 Dr. Yuridia Hernandez MD Work Phone: [facility] 03-02-2024 04:41-0500 Body weight 83.[address] Yuridia Hernandez MD Work Phone: 3(933)417-230517 [address] 06-27-2023 16:25-0400 Diastolic blood pressure 51 mm[Hg] Dr. Talya Nichols Work Phone: [facility] 06-27-2023 16:25-0400 Heart rate 87 /min Dr. Talya Nichols Work Phone: [facility] 06-27-2023 16:25-0400 Inhaled oxygen flow rate 3 L/min Dr. Talya Nichols Work Phone: [facility] 06-27-2023 16:25-0400 Respiratory rate 24 /min Dr. Talya Nichols Work Phone: [facility] 06-27-2023 16:25-0400 SaO2% (BldA) [Mass fraction] 98 % Dr. Talya Nichols Work Phone: [facility] 06-27-2023 16:25-0400 Systolic blood pressure 148 mm[Hg] Dr. Talya Nichols Work Phone: [facility] 06-27-2023 15:34-0400 Body temperature 97.5 [degF] Dr. Talya Nichols Work Phone: [facility] 06-27-2023 13:07-0400 Body height 165.[address] Talya Nichols Work Phone: [facility] 06-11-2023 12:11-0400 Heart rate 89 /min AHMET CLARK MD [facility] 06-11-2023 12:11-0400 Respiratory rate 24 /min AHMET CLARK MD [facility] 06-11-2023 08:32-0400 Heart rate 75 /min AHMET CLARK MD [facility] 06-11-2023 06:40-0400 Heart rate 73 /min AHMET CLARK MD [facility] 06-11-2023 06:40-0400 Respiratory rate 20 /min AHMET CLARK MD [facility] 06-11-2023 06:33-0400 Blood Pressure Cuff Size AHMET CLARK MD [facility] 06-11-2023 06:33-0400 Blood Pressure Location AHMET CLARK MD [facility] 06-11-2023 06:33-0400 Blood Pressure Method AHMET CLARK MD [facility] 06-11-2023 06:33-0400 Body temperature 97.34 [degF] AHMET CLARK MD [facility] 06-11-2023 06:33-0400 Diastolic Blood Pressure Non-Invasive 57 mm[Hg] AHMET CLARK MD [facility] 06-11-2023 06:33-0400 Heart rate 75 /min AHMET CLARK MD [facility] 06-11-2023 06:33-0400 Reason For Taking VItal Signs AHMET CLARK MD [facility] 06-11-2023 06:33-0400 Respiratory rate 20 /min AHMET CLARK MD [facility] 06-11-2023 06:33-0400 Systolic Blood Pressure Non-Invasive 128 mm[Hg] AHMET CLARK MD [facility] 06-10-2023 21:32-0400 Blood Pressure Cuff Size AHMET CLARK MD [facility] 06-10-2023 21:32-0400 Blood Pressure Location AHMET CLARK MD [facility] 06-10-2023 21:32-0400 Blood Pressure Method AHMET CLARK MD [facility] 06-10-2023 21:32-0400 Body temperature 98.06 [degF] AHMET CLARK MD [facility] 06-10-2023 21:32-0400 Diastolic Blood Pressure Non-Invasive 61 mm[Hg] AHMET CLARK MD [facility] 06-10-2023 21:32-0400 Heart rate 73 /min AHMET CLARK MD [facility] 06-10-2023 21:32-0400 Systolic Blood Pressure Non-Invasive 136 mm[Hg] AHMET CLARK MD [facility] 06-10-2023 14:28-0400 Blood Pressure Cuff Size AHMET CLARK MD [facility] 06-10-2023 14:28-0400 Blood Pressure Location AHMET CLARK MD [facility] 06-10-2023 14:28-0400 Blood Pressure Method AHMET CLARK MD [facility] 06-10-2023 14:28-0400 Body temperature 97.34 [degF] AHMET CLARK MD [facility] 06-10-2023 14:28-0400 Diastolic Blood Pressure Non-Invasive 46 mm[Hg] AHMET CLARK MD [facility] 06-10-2023 14:28-0400 Reason For Taking VItal Signs AHMET CLARK MD [facility] 06-10-2023 14:28-0400 Systolic Blood Pressure Non-Invasive 140 mm[Hg] AHMET CLARK MD [facility] 06-10-2023 08:13-0400 Heart rate 68 /min AHMET CLARK MD [facility] 06-10-2023 08:13-0400 Reason For Taking VItal Signs AHMET CLARK MD [facility] 06-09-2023 18:38-0400 Heart rate 83 /min AHMET CLARK MD [facility] 06-09-2023 18:00-0400 Heart rate 89 /min AHMET CLARK MD [facility] 06-09-2023 18:00-0400 Mean blood pressure 67 mm[Hg] AHMET CLARK MD [facility] 06-09-2023 16:00-0400 Mean blood pressure 54 mm[Hg] AHMET CLARK MD [facility] 06-09-2023 15:00-0400 Mean blood pressure 49 mm[Hg] AHMET CLARK MD [facility] 06-09-2023 15:00-0400 Signs/Symptoms Transfusion Reaction AHMET CLARK MD [facility] 06-09-2023 14:37-0400 Signs/Symptoms Transfusion Reaction AHMET CLARK MD [facility] 06-09-2023 13:40-0400 Diastolic blood pressure 55 mm[Hg] AHMET CLARK MD [facility] 06-09-2023 13:40-0400 Signs/Symptoms Transfusion Reaction No AHMET CLARK MD [facility] 06-09-2023 13:40-0400 Systolic blood pressure 145 mm[Hg] AHMET CLARK MD [facility] 06-08-2023 22:18-0400 Body height 165.1 cm AHMET CLARK MD [facility] 06-08-2023 22:18-0400 Body weight 83.3 kg AHMET CLARK MD [facility] 06-08-2023 22:18-0400 Body weight 30.56 kg/m2 AHMET CLARK MD [facility] 06-08-2023 20:58-0400 Diastolic blood pressure 68 mm[Hg] DR MARGARET RILEY DO [facility] 06-08-2023 20:58-0400 Heart rate 93 /min DR MARGARET RILEY DO [facility] 06-08-2023 20:58-0400 Respiratory rate 24 /min DR MARGARET RILEY DO [facility] 06-08-2023 20:58-0400 Systolic blood pressure 135 mm[Hg] DR MARGARET RILEY DO [facility] 06-08-2023 19:54-0400 Diastolic Blood Pressure Non-Invasive 54 mm[Hg] DR MARGARET RILEY DO [facility] 06-08-2023 19:54-0400 Heart rate 100 /min DR MARGARET RILEY DO [facility] 06-08-2023 19:54-0400 Respiratory rate 24 /min DR MARGARET RILEY DO [facility] 06-08-2023 19:54-0400 Systolic Blood Pressure Non-Invasive 138 mm[Hg] DR MARGARET RILEY DO [facility] 06-08-2023 19:09-0400 Diastolic Blood Pressure Non-Invasive 91 mm[Hg] DR MARGARET RILEY DO [facility] 06-08-2023 19:09-0400 Heart rate 100 /min DR MARGARET RILEY DO [facility] 06-08-2023 19:09-0400 Respiratory rate 24 /min DR MARGARET RILEY DO [facility] 06-08-2023 19:09-0400 Systolic Blood Pressure Non-Invasive 114 mm[Hg] DR MARGARET RILEY DO [facility] 06-08-2023 18:27-0400 SaO2% (BldA) [Mass fraction] 99 % DR MARGARET RILEY DO [facility] 06-08-2023 18:20-0400 Heart rate 98 /min DR MARGARET RILEY DO [facility] 06-08-2023 18:08-0400 Diastolic Blood Pressure Non-Invasive 71 mm[Hg] DR MARGARET RILEY DO [facility] 06-08-2023 18:08-0400 Systolic Blood Pressure Non-Invasive 155 mm[Hg] DR MARGARET RILEY DO [facility] 06-08-2023 15:22-0400 Heart rate 96 /min DR MARGARET RILEY DO [facility] 06-08-2023 15:04-0400 Heart rate 90 /min DR MARGARET RILEY DO [facility] 06-08-2023 13:48-[address] MARGARET RILEY DO [facility] 06-08-2023 13:48-[address] MARGARET RILEY DO [facility] 06-08-2023 13:48-0400 Body temperature 98.24 [degF] DR MARGARET RILEY DO [facility] 06-08-2023 13:48-0400 Body weight 84.[address] MARGARET RILEY DO [facility] 05-25-2023 17:50-0400 Diastolic Blood Pressure Non-Invasive 77 mm[Hg] ANNY DA SILVA MD [facility] 05-25-2023 17:50-0400 Heart rate 99 /min ANNY DA SILVA MD [facility] 05-25-2023 17:50-0400 Respiratory rate 22 /min ANNY DA SILVA MD [facility] 05-25-2023 17:50-0400 Systolic Blood Pressure Non-Invasive 130 mm[Hg] ANNY DA SILVA MD [facility] 05-25-2023 16:55-0400 Diastolic Blood Pressure Non-Invasive 62 mm[Hg] ANNY DA SILVA MD [facility] 05-25-2023 16:55-0400 Heart rate 93 /min ANNY DA SILVA MD [facility] 05-25-2023 16:55-0400 Respiratory rate 22 /min ANNY DA SILVA MD [facility] 05-25-2023 16:55-0400 Systolic Blood Pressure Non-Invasive 136 mm[Hg] ANNY DA SILVA MD [facility] 05-25-2023 16:45-0400 Heart rate 90 /min ANNY DA SILVA MD [facility] 05-25-2023 16:45-0400 Respiratory rate 22 /min ANNY DA SILVA MD [facility] 05-25-2023 16:31-0400 Diastolic Blood Pressure Non-Invasive 61 mm[Hg] ANNY DA SILVA MD [facility] 05-25-2023 16:31-0400 Systolic Blood Pressure Non-Invasive 144 mm[Hg] ANNY DA SILVA MD [facility] 05-25-2023 15:04-0400 Body temperature 98.78 [degF] ANNY DA SILVA MD [facility] 05-25-2023 15:04-0400 Body weight 86.4 kg ANNY DA SILVA MD [facility] 05-08-2023 15:22-0500 Body temperature 97.7 [degF] DELIA KAPPER [employer] PROVID[employer] [facility] 05-08-2023 15:22-0500 Diastolic Blood Pressure Non-Invasive 49 mm[Hg] DELIA KAPPER [employer]IM[employer] C[employer] PROVIDER-[employer] [facility] 05-08-2023 15:22-0500 Heart rate 78 /min DELIA KAPPER [employer] C[employer] PROVIDER-[employer] [facility] 05-08-2023 15:22-0500 Reason For Taking VItal Signs DELIA KAPPER ANIMAL C[employer] PROVIDER-[employer] [facility] 05-08-2023 15:22-0500 Respiratory rate 20 /min DELIA KAPPER [employer]IM[employer] C[employer] PROVIDER-[employer] [facility] 05-08-2023 15:22-0500 Systolic Blood Pressure Non-Invasive 139 mm[Hg] DELIA KAPPER ANIMAL CARE PROVIDER-[employer] [facility] 05-08-2023 15:11-0500 Heart rate 82 /min DELIA KAPPER [employer]IM[employer] C[employer] PROVIDER-[employer] [facility] 05-08-2023 15:11-0500 Respiratory rate 20 /min DELIA KAPPER [employer]IMAL CARE PROVIDER-[employer] [facility] 05-08-2023 11:11-0500 Heart rate 77 /min DELIA KAPPER [employer]IM[employer] C[employer] PROVIDER-[employer] [facility] 05-08-2023 11:11-0500 Respiratory rate 20 /min DELIA KAPPER [employer]IM[employer] C[employer] PROVIDER-[employer] [facility] 05-08-2023 11:00-0500 Systolic Blood Pressure Non-Invasive 153 mm[Hg] DELIA MARCER ANIMAL CARE PROVIDER-[employer] [facility] 05-08-2023 06:45-0500 Body temperature 97.52 [degF] DELIA KAPPER [employer]IMAL CARE PROVIDER-[employer] [facility] 05-08-2023 06:45-0500 Diastolic Blood Pressure Non-Invasive 52 mm[Hg] DELIA KAPPER ANIM[employer] C[employer] PROVIDER-[employer] [facility] 05-08-2023 06:45-0500 Heart rate 69 /min DELIA KAPPER ANIMAL CARE PROVIDER-[employer] [facility] 05-08-2023 06:45-0500 Reason For Taking VItal Signs DELIA TRANER ANIMAL CARE PROVIDER-[employer] [facility] 05-08-2023 06:45-0500 Systolic Blood Pressure Non-Invasive 136 mm[Hg] DELIA MARCER ANIMAL CARE PROVIDER-[employer] [facility] 05-08-2023 05:43-0500 Heart rate 71 /min DELIA KAPPER [employer]IM[employer] CARE PROVIDER-[employer] [facility] 05-07-2023 20:07-0500 Heart rate 74 /min DELIA KAPPER [employer]IM[employer] CARE PROVIDER-[employer] [facility] 05-07-2023 16:55-0500 Heart rate 84 /min DELIA KAPPER [employer]IM[employer] CARE PROVIDER-[employer] [facility] 05-07-2023 14:29-0500 Body height 165.1 cm DELIA TRANER ANIMAL CARE PROVIDER-[employer] [facility] 05-07-2023 14:29-0500 Body weight 87 kg DELIA KAPPER ANIMAL CARE PROVIDER-[employer] [facility] 05-07-2023 14:29-0500 Body weight 31.92 kg/m2 DELIA JEFFERSON ANIMAL CARE PROVIDER-BAR T[employer] [facility] 05-07-2023 09:56-0500 Body height 165.1 cm DELIA JEFFERSON ANIMAL CARE PROVIDER-BAR T[employer] [facility] 05-07-2023 09:56-0500 Body weight 87 kg DELIA JEFFERSON ANIMAL CARE PROVIDER-[employer] [facility] 05-01-2023 05:20-0500 Body temperature 97.4 [degF] Dr. Talya Nichols Work Phone: [facility] 05-01-2023 05:20-0500 Diastolic blood pressure 56 mm[Hg] Dr. Talya Nichols Work Phone: [facility] 05-01-2023 05:20-0500 Heart rate 74 /min Dr. Talya Nichols Work Phone: [facility] 05-01-2023 05:20-0500 Respiratory rate 22 /min Dr. Talya Nichols Work Phone: [facility] 05-01-2023 05:20-0500 SaO2% (BldA) [Mass fraction] 97 % Dr. Talya Nichols Work Phone: [facility] 05-01-2023 05:20-0500 Systolic blood pressure 138 mm[Hg] Dr. Talya Nichols Work Phone: [facility] 04-30-2023 23:00-0500 Inhaled oxygen flow rate 4 L/min Dr. Talya Nichols Work Phone: [facility] 04-30-2023 21:40-0500 Body height 165.[address] Talya Nichols Work Phone: [facility] 04-30-2023 21:40-0500 Body mass index (BMI) [Ratio] 33.6 kg/m2 Dr. Talya Nichols Work Phone: [facility] 04-30-2023 21:40-0500 Body weight 91.[address] Talya Nichols Work Phone: [facility] 04-26-2023 12:15-0500 Heart rate 8 /min Dr. Talya Nichols Work Phone: [facility] 04-26-2023 12:15-0500 Respiratory rate 20 /min Dr. Talya Nichols Work Phone: [facility] 04-26-2023 11:31-0500 Inhaled oxygen flow rate 2 L/min Dr. Talya Nichols Work Phone: [facility] 04-26-2023 11:31-0500 SaO2% (BldA) [Mass fraction] 98 % Dr. Talya Nichols Work Phone: [facility] 04-26-2023 08:20-0500 Body temperature 97.5 [degF] Dr. Talya Nichols Work Phone: [facility] 04-26-2023 08:20-0500 Diastolic blood pressure 46 mm[Hg] Dr. Talya Nichols Work Phone: [facility] 04-26-2023 08:20-0500 Systolic blood pressure 134 mm[Hg] Dr. Talya Nichols Work Phone: [facility] 04-26-2023 01:30-0500 Body mass index (BMI) [Ratio] 31.6 kg/m2 Dr. Talya Nichols Work Phone: [facility] 04-26-2023 01:30-0500 Body weight 86.[address] Talya Nichols Work Phone: [facility] 04-25-2023 10:36-0500 Body height 165.[address] Talya Nichols Work Phone: [facility] 04-24-2023 19:45-0500 Diastolic blood pressure 72 mm[Hg] Dr. Talya Nichols Work Phone: [facility] 04-24-2023 19:45-0500 Heart rate 107 /min Dr. Talya Nichols Work Phone: [facility] 04-24-2023 19:45-0500 Respiratory rate 27 /min Dr. Talya Nichols Work Phone: [facility] 04-24-2023 19:45-0500 SaO2% (BldA) [Mass fraction] 94 % Dr. Talya Nichols Work Phone: [facility] 04-24-2023 19:45-0500 Systolic blood pressure 90 mm[Hg] Dr. Talya Nichols Work Phone: [facility] 04-24-2023 19:03-0500 Body temperature 97.9 [degF] Dr. Talya Nichols Work Phone: [facility] 04-24-2023 18:29-0500 Inhaled oxygen flow rate 4 L/min Dr. Talya Nichols Work Phone: [facility] 04-24-2023 15:35-0500 Body height 165.[address] Talya Nichols Work Phone: [facility] 04-24-2023 15:35-0500 Body mass index (BMI) [Ratio] 33.3 kg/m2 Dr. Talya Nichols Work Phone: [facility] 04-24-2023 15:35-0500 Body weight 90.[address] Talya Nichols Work Phone: [facility] 04-07-2023 16:12-0500 Diastolic blood pressure 65 mm[Hg] Dr. Talya Nichols Work Phone: [facility] 04-07-2023 16:12-0500 Heart rate 91 /min Dr. Talya Nichols Work Phone: [facility] 04-07-2023 16:12-0500 SaO2% (BldA) [Mass fraction] 99 % Dr. Talya Nichols Work Phone: [facility] 04-07-2023 16:12-0500 Systolic blood pressure 160 mm[Hg] Dr. Talya Nichols Work Phone: [facility] 04-07-2023 14:19-0500 Inhaled oxygen flow rate 3 L/min Dr. Talya Nichols Work Phone: [facility] 04-07-2023 14:07-0500 Inhaled oxygen concentration 97 % Dr. Talya Nichols Work Phone: [facility] 04-07-2023 13:42-0500 Body height 165.[address] Talya Nichols Work Phone: [facility] 04-07-2023 13:42-0500 Body mass index (BMI) [Ratio] 33.2 kg/m2 Dr. Talya Nichols Work Phone: [facility] 04-07-2023 13:42-0500 Body temperature 98.4 [degF] Dr. Talya Nichols Work Phone: [facility] 04-07-2023 13:42-0500 Body weight 90.[address] Talya Nichols Work Phone: [facility] 04-07-2023 13:42-0500 Respiratory rate 36 /min Dr. Talya Nichols Work Phone: [facility] 04-02-2023 11:01-0500 Body temperature 98.6 [degF] Dr. Talya Nichols Work Phone: [facility] 04-02-2023 11:01-0500 Diastolic blood pressure 59 mm[Hg] Dr. Talya Nichols Work Phone: [facility] 04-02-2023 11:01-0500 Heart rate 90 /min Dr. Talya Nichols Work Phone: [facility] 04-02-2023 11:01-0500 Inhaled oxygen flow rate 2 L/min Dr. Talya Nichols Work Phone: [facility] 04-02-2023 11:01-0500 Respiratory rate 18 /min Dr. Talya Nichols Work Phone: [facility] 04-02-2023 11:01-0500 SaO2% (BldA) [Mass fraction] 98 % Dr. Talya Nichols Work Phone: [facility] 04-02-2023 11:01-0500 Systolic blood pressure 136 mm[Hg] Dr. Talya Nichols Work Phone: [facility] 04-02-2023 09:15-0500 Body height 165.[address] Talya Nichols Work Phone: [facility] 04-02-2023 09:15-0500 Body mass index (BMI) [Ratio] 32.4 kg/m2 Dr. Talya Nichols Work Phone: [facility] 04-02-2023 09:15-0500 Body weight 88.[address] Talya Nichols Work Phone: [facility] 03-09-2023 16:48-0500 Body temperature 97.9 [degF] Dr. Talya Nichols Work Phone: [facility] 03-09-2023 16:48-0500 Diastolic blood pressure 87 mm[Hg] Dr. Talya Nichols Work Phone: [facility] 03-09-2023 16:48-0500 Heart rate 100 /min Dr. Talya Nichols Work Phone: [facility] 03-09-2023 16:48-0500 Inhaled oxygen flow rate 2 L/min Dr. Talya Nichols Work Phone: [facility] 03-09-2023 16:48-0500 Respiratory rate 18 /min Dr. Talya Nichols Work Phone: [facility] 03-09-2023 16:48-0500 SaO2% (BldA) [Mass fraction] 95 % Dr. Talya Nichols Work Phone: [facility] 03-09-2023 16:48-0500 Systolic blood pressure 131 mm[Hg] Dr. Talya Nichols Work Phone: [facility] 03-08-2023 14:56-0500 Body height 165.[address] Talya Nichols Work Phone: [facility] 03-08-2023 14:56-0500 Body weight 84.[address] Talya Nichols Work Phone: [facility] 03-07-2023 22:14-0500 Body mass index (BMI) [Ratio] 31.1 kg/m2 Dr. Talya Nichols Work Phone: [facility] 03-07-2023 20:21-0500 Diastolic blood pressure 49 mm[Hg] Dr. Talya Nichols Work Phone: [facility] 03-07-2023 20:21-0500 Heart rate 81 /min Dr. Talya Nichols Work Phone: [facility] 03-07-2023 20:21-0500 SaO2% (BldA) [Mass fraction] 98 % Dr. Talya Nichols Work Phone: [facility] 03-07-2023 20:21-0500 Systolic blood pressure 133 mm[Hg] Dr. Talya Nichols Work Phone: [facility] 03-07-2023 19:11-0500 Respiratory rate 24 /min Dr. Talya Nichols Work Phone: [facility] 03-07-2023 18:55-0500 Inhaled oxygen flow rate 3 L/min Dr. Talya Nichols Work Phone: [facility] 03-07-2023 18:29-0500 Body temperature 98.4 [degF] Dr. Talya Nichols Work Phone: [facility] 03-07-2023 18:22-0500 Body height 165.[address] Talya Nichols Work Phone: [facility] 03-07-2023 18:22-0500 Body mass index (BMI) [Ratio] 32.3 kg/m2 Dr. Talya Nichols Work Phone: [facility] 03-07-2023 18:22-0500 Body weight [address] Talya Nichols Work Phone: [facility] 02-15-2023 13:59-0500 Body height 165.[address] Talya Nichols Work Phone: [facility] 02-15-2023 13:59-0500 Body weight 85.[address] Talya Nichols Work Phone: [facility] 02-15-2023 12:57-0500 Heart rate 90 /min Dr. Talya Nichols Work Phone: [facility] 02-15-2023 12:57-0500 Respiratory rate 20 /min Dr. Talya Nichols Work Phone: [facility] 02-15-2023 12:00-0500 Body temperature 97.1 [degF] Dr. Talya Nichols Work Phone: [facility] 02-15-2023 12:00-0500 Diastolic blood pressure 52 mm[Hg] Dr. Talya Nichols Work Phone: [facility] 02-15-2023 12:00-0500 Inhaled oxygen flow rate 2 L/min Dr. Talya Nichols Work Phone: [facility] 02-15-2023 12:00-0500 SaO2% (BldA) [Mass fraction] 99 % Dr. Talya Nichols Work Phone: [facility] 02-15-2023 12:00-0500 Systolic blood pressure 129 mm[Hg] Dr. Talya Nichols Work Phone: [facility] 02-15-2023 03:14-0500 Body mass index (BMI) [Ratio] 31.3 kg/m2 Dr. Talya Nichols Work Phone: [facility] 02-14-2023 22:00-0500 Inhaled oxygen concentration 98 % Dr. Talya Nichols Work Phone: [facility] 02-13-2023 23:32-0500 Diastolic blood pressure 40 mm[Hg] Dr. Talya Nichols Work Phone: [facility] 02-13-2023 23:32-0500 Heart rate 98 /min Dr. Talya Nichols Work Phone: [facility] 02-13-2023 23:32-0500 Inhaled oxygen flow rate 2 L/min Dr. Talya Nichols Work Phone: [facility] 02-13-2023 23:32-0500 Respiratory rate 20 /min Dr. Talya Nichols Work Phone: [facility] 02-13-2023 23:32-0500 SaO2% (BldA) [Mass fraction] 99 % Dr. Talya Nichols Work Phone: [facility] 02-13-2023 23:32-0500 Systolic blood pressure 109 mm[Hg] Dr. Talya Nichols Work Phone: [facility] 02-13-2023 22:36-0500 Body temperature 98.2 [degF] Dr. Talya Nichols Work Phone: [facility] 02-13-2023 22:24-0500 Inhaled oxygen concentration 2 % Dr. Talya Nichols Work Phone: [facility] 02-13-2023 20:08-0500 Body height 165.[address] Talya Nichols Work Phone: [facility] 02-13-2023 20:08-0500 Body mass index (BMI) [Ratio] 32 kg/m2 Dr. Talya Nichols Work Phone: [facility] 02-13-2023 20:08-0500 Body weight 87.[address] Talya Nichols Work Phone: [facility] 02-08-2023 22:00-0500 Diastolic blood pressure 46 mm[Hg] Dr. Talya Nichols Work Phone: [facility] 02-08-2023 22:00-0500 Respiratory rate 16 /min Dr. Talya Nichols Work Phone: [facility] 02-08-2023 22:00-0500 SaO2% (BldA) [Mass fraction] 95 % Dr. Talya Nichols Work Phone: [facility] 02-08-2023 22:00-0500 Systolic blood pressure 125 mm[Hg] Dr. Talya Nichols Work Phone: [facility] 02-08-2023 21:57-0500 Heart rate 98 /min Dr. Talya Nichols Work Phone: [facility] 02-08-2023 20:29-0500 Inhaled oxygen flow rate 2 L/min Dr. Talya Nichols Work Phone: [facility] 02-08-2023 17:56-0500 Body temperature 98.6 [degF] Dr. Talya Nichols Work Phone: [facility] 02-08-2023 17:50-0500 Body mass index (BMI) [Ratio] 32.7 kg/m2 Dr. Talya Nichols Work Phone: [facility] 02-08-2023 17:50-0500 Body weight 89.[address] Talya Nichols Work Phone: [facility] 11-18-2022 15:26-0400 Inhaled oxygen flow rate 2 L/min Dr. Talya Nichols Work Phone: [facility] 11-18-2022 15:26-0400 SaO2% (BldA) [Mass fraction] 92 % Dr. Talya Nichols Work Phone: [facility] 11-18-2022 15:22-0400 Body temperature 98.4 [degF] Dr. Talya Nichols Work Phone: [facility] 11-18-2022 15:22-0400 Diastolic blood pressure 58 mm[Hg] Dr. Talya Nichols Work Phone: [facility] 11-18-2022 15:22-0400 Heart rate 92 /min Dr. Talya Nichols Work Phone: [facility] 11-18-2022 15:22-0400 Respiratory rate 18 /min Dr. Talya Nichols Work Phone: [facility] 11-18-2022 15:22-0400 Systolic blood pressure 151 mm[Hg] Dr. Talya Nichols Work Phone: [facility] 11-17-2022 11:56-0400 Body height 165.[address] Talya Nichols Work Phone: [facility] 11-17-2022 11:56-0400 Body weight 84.[address] Talya Nichols Work Phone: [facility] 11-16-2022 19:44-0400 Body mass index (BMI) [Ratio] 31.1 kg/m2 Dr. Talya Nichols Work Phone: [facility] 11-16-2022 19:04-0400 Body temperature 98.1 [degF] [facility] 11-16-2022 19:04-0400 Diastolic blood pressure 42 mm[Hg] [facility] 11-16-2022 19:04-0400 Heart rate 98 /min [facility] 11-16-2022 19:04-0400 Respiratory rate 24 /min [facility] 11-16-2022 19:04-0400 SaO2% (BldA) [Mass fraction] 99 % [facility] 11-16-2022 19:04-0400 Systolic blood pressure 117 mm[Hg] [facility] 11-16-2022 16:47-0400 Inhaled oxygen flow rate 2 L/min [facility] 11-16-2022 16:26-0400 Body height 165.1 cm [facility] 11-16-2022 16:26-0400 Body mass index (BMI) [Ratio] 32.7 kg/m2 [facility] 11-16-2022 16:26-0400 Body weight 89.2 kg [facility] 10-23-2022 00:04-0400 Respiratory rate 20 /min Dr. Talya Nichols Work Phone: [facility] 10-23-2022 00:04-0400 SaO2% (BldA) [Mass fraction] 95 % Dr. Talya Nichols Work Phone: [facility] 10-22-2022 22:50-0400 Diastolic blood pressure 56 mm[Hg] Dr. Talya Nichols Work Phone: [facility] 10-22-2022 22:50-0400 Heart rate 93 /min Dr. Talya Nichols Work Phone: [facility] 10-22-2022 22:50-0400 Inhaled oxygen flow rate 2 L/min Dr. Talya Nichols Work Phone: [facility] 10-22-2022 22:50-0400 Systolic blood pressure 131 mm[Hg] Dr. Talya Nichols Work Phone: [facility] 10-22-2022 21:40-0400 Body temperature 98.6 [degF] Dr. Talya Nichols Work Phone: [facility] 10-22-2022 20:14-0400 Body height 165.[address] Talya Nichols Work Phone: [facility] 10-22-2022 20:14-0400 Body mass index (BMI) [Ratio] 33.4 kg/m2 Dr. Talya Nichols Work Phone: [facility] 10-22-2022 20:14-0400 Body weight 91.[address] Talya Nichols Work Phone: [facility] 07-06-2022 09:09-0400 Body mass index (BMI) [Ratio] 31.1 kg/m2 Dr. Talya Nichols Work Phone: [facility] 07-06-2022 09:09-0400 Body weight 84.[address] Talya Nichols Work Phone: [facility] 07-06-2022 09:09-0400 Diastolic blood pressure 71 mm[Hg] Dr. Talya Nichols Work Phone: [facility] 07-06-2022 09:09-0400 Heart rate 87 /min Dr. Talya Nichols Work Phone: [facility] 07-06-2022 09:09-0400 Inhaled oxygen flow rate 2 L/min Dr. Talya Nichols Work Phone: [facility] 07-06-2022 09:09-0400 Respiratory rate 24 /min Dr. Talya Nichols Work Phone: [facility] 07-06-2022 09:09-0400 SaO2% (BldA) [Mass fraction] 95 % Dr. Talya Nichols Work Phone: [facility] 07-06-2022 09:09-0400 Systolic blood pressure 140 mm[Hg] Dr. Talya Nichols Work Phone: [facility] 05-26-2022 10:00-0400 Inhaled oxygen flow rate 2 L/min Dr. Talya Nichols Work Phone: [facility] 05-26-2022 09:30-0400 Body temperature 97.9 [degF] Dr. Talya Nichols Work Phone: [facility] 05-26-2022 09:30-0400 Diastolic blood pressure 67 mm[Hg] Dr. Talya Nichols Work Phone: [facility] 05-26-2022 09:30-0400 Heart rate 89 /min Dr. Talya Nichols Work Phone: [facility] 05-26-2022 09:30-0400 Respiratory rate 18 /min Dr. Talya Nichols Work Phone: [facility] 05-26-2022 09:30-0400 SaO2% (BldA) [Mass fraction] 93 % Dr. Talya Nichols Work Phone: [facility] 05-26-2022 09:30-0400 Systolic blood pressure 116 mm[Hg] Dr. Talya Nichols Work Phone: [facility] 05-26-2022 05:25-0400 Body mass index (BMI) [Ratio] 31.3 kg/m2 Dr. Talya Nichols Work Phone: [facility] 05-26-2022 05:25-0400 Body weight 85.[address] Talya Nichols Work Phone: [facility] 05-24-2022 17:47-0400 Body height 165.[address] Talya Nichols Work Phone: [facility] 05-24-2022 16:11-0400 Body temperature 98 [degF] Dr. Talya Nichols Work Phone: [facility] 05-24-2022 16:11-0400 Diastolic blood pressure 50 mm[Hg] Dr. Talya Nichols Work Phone: [facility] 05-24-2022 16:11-0400 Heart rate 97 /min Dr. Talya Nichols Work Phone: [facility] 05-24-2022 16:11-0400 Inhaled oxygen flow rate 3 L/min Dr. Talya Nichols Work Phone: [facility] 05-24-2022 16:11-0400 Respiratory rate 26 /min Dr. Talya Nichols Work Phone: [facility] 05-24-2022 16:11-0400 SaO2% (BldA) [Mass fraction] 96 % Dr. Talya Nichols Work Phone: [facility] 05-24-2022 16:11-0400 Systolic blood pressure 150 mm[Hg] Dr. Talya Nichols Work Phone: [facility] 05-24-2022 11:08-0400 Body height 165.[address] Talya Nichols Work Phone: [facility] 05-24-2022 11:08-0400 Body mass index (BMI) [Ratio] 33.1 kg/m2 Dr. Talya Nichols Work Phone: [facility] 05-24-2022 11:08-0400 Body weight 90.[address] Talya Nichols Work Phone: [facility] 05-02-2022 09:27-0500 Body mass index (BMI) [Ratio] 31.1 kg/m2 Dr. Talya Nichols Work Phone: [facility] 05-02-2022 09:27-0500 Body weight 84.[address] Talya Nichols Work Phone: [facility] 05-02-2022 09:27-0500 Diastolic blood pressure 73 mm[Hg] Dr. Talya Nichols Work Phone: [facility] 05-02-2022 09:27-0500 Heart rate 67 /min Dr. Talya Nichols Work Phone: [facility] 05-02-2022 09:27-0500 Inhaled oxygen flow rate 2 L/min Dr. Talya Nichols Work Phone: [facility] 05-02-2022 09:27-0500 Respiratory rate 20 /min Dr. Talya Nichols Work Phone: [facility] 05-02-2022 09:27-0500 SaO2% (BldA) [Mass fraction] 95 % Dr. Talya iNchols Work Phone: [facility] 05-02-2022 09:27-0500 Systolic blood pressure 141 mm[Hg] Dr. Talya Nichols Work Phone: [facility] 04-13-2022 11:43-0500 SaO2% (BldA) [Mass fraction] 94 % Dr. Talya Nichols Work Phone: [facility] 04-13-2022 11:07-0500 Inhaled oxygen flow rate 2 L/min Dr. Talya Nichols Work Phone: [facility] 04-13-2022 10:00-0500 Respiratory rate 20 /min Dr. Talya Nichols Work Phone: [facility] 04-13-2022 09:49-0500 Body temperature 97.9 [degF] Dr. Talya Nichols Work Phone: [facility] 04-13-2022 09:49-0500 Diastolic blood pressure 64 mm[Hg] Dr. Talya Nichols Work Phone: [facility] 04-13-2022 09:49-0500 Heart rate 95 /min Dr. Talya Nichols Work Phone: [facility] 04-13-2022 09:49-0500 Systolic blood pressure 152 mm[Hg] Dr. Talya Nichols Work Phone: [facility] 04-13-2022 05:40-0500 Body weight 89.[address] Talya Nichols Work Phone: [facility] 04-12-2022 14:10-0500 Body height 165.[address] Talya Nichols Work Phone: [facility] 04-11-2022 23:35-0500 Body mass index (BMI) [Ratio] 32.3 kg/m2 Dr. Talya Nichols Work Phone: [facility] 04-11-2022 22:42-0500 Body temperature 97.4 [degF] Dr. Talya Nichols Work Phone: [facility] 04-11-2022 22:42-0500 Diastolic blood pressure 55 mm[Hg] Dr. Talya Nichols Work Phone: [facility] 04-11-2022 22:42-0500 Heart rate 98 /min Dr. Talya Nichols Work Phone: [facility] 04-11-2022 22:42-0500 Inhaled oxygen flow rate 4 L/min Dr. Talya Nichols Work Phone: [facility] 04-11-2022 22:42-0500 Respiratory rate 24 /min Dr. Talya Nichols Work Phone: [facility] 04-11-2022 22:42-0500 SaO2% (BldA) [Mass fraction] 98 % Dr. Talya Nichols Work Phone: [facility] 04-11-2022 22:42-0500 Systolic blood pressure 177 mm[Hg] Dr. Tayla Nichols Work Phone: [facility] 04-11-2022 18:11-0500 Body height 165.[address] Talya Nichols Work Phone: [facility] 04-11-2022 18:11-0500 Body mass index (BMI) [Ratio] 34.9 kg/m2 Dr. Talya Nichols Work Phone: [facility] 04-11-2022 18:11-0500 Body weight 95.[address] Talya Nichols Work Phone: [facility] 03-16-2022 11:17-0500 Heart rate 80 /min Dr. Talya Nichols Work Phone: [facility] 03-16-2022 11:17-0500 Respiratory rate 20 /min Dr. Talya Nichols Work Phone: [facility] 03-16-2022 09:00-0500 Body temperature 97.9 [degF] Dr. Talya Nichols Work Phone: [facility] 03-16-2022 09:00-0500 Diastolic blood pressure 42 mm[Hg] Dr. Talya Nichols Work Phone: [facility] 03-16-2022 09:00-0500 Inhaled oxygen flow rate 2 L/min Dr. Talya Nichols Work Phone: [facility] 03-16-2022 09:00-0500 SaO2% (BldA) [Mass fraction] 99 % Dr. Talya Nichols Work Phone: [facility] 03-16-2022 09:00-0500 Systolic blood pressure 107 mm[Hg] Dr. Talya Nichols Work Phone: [facility] 03-15-2022 03:13-0500 Body weight 85.[address] Talya Nichols Work Phone: [facility] 03-12-2022 12:40-0500 Body height 165.[address] Talya Nichols Work Phone: [facility] Work Phone: 03-12-2022 03:41-0500 Body mass index (BMI) [Ratio] 73.3 kg/m2 Dr. Talya Nichols Work Phone: [facility] 12-16-2021 16:00-0400 Inhaled oxygen flow rate 2 L/min Dr. Talya Nichols Work Phone: [facility] 12-16-2021 14:13-0400 Heart rate 110 /min Dr. Talya Nichols Work Phone: [facility] 12-16-2021 14:13-0400 Respiratory rate 24 /min Dr. Talya Nichols Work Phone: [facility] 12-16-2021 13:46-0400 Diastolic blood pressure 56 mm[Hg] Dr. Talya Nichols Work Phone: [facility] 12-16-2021 13:46-0400 Systolic blood pressure 158 mm[Hg] Dr. Talya Nichols Work Phone: [facility] 12-16-2021 13:39-0400 Body temperature 97.2 [degF] Dr. Talya Nichols Work Phone: [facility] 12-16-2021 13:39-0400 SaO2% (BldA) [Mass fraction] 99 % Dr. Talya Nichols Work Phone: [facility] 12-16-2021 06:00-0400 Body weight 91.[address] Talya Nichols Work Phone: [facility] 12-13-2021 14:18-0400 Body height 165.[address] Talya Nichols Work Phone: [facility] Work Phone: 12-13-2021 14:18-0400 Body mass index (BMI) [Ratio] 33 kg/m2 Dr. Talya Nichols Work Phone: [facility] 12-08-2021 13:19-0400 Heart rate 75 /min [facility] Work Phone: 12-08-2021 13:19-0400 SaO2% (BldA) [Mass fraction] 93 % [facility] Work Phone: 12-08-2021 13:05-0400 Respiratory rate 24 /min Dr. Talya Nichols Work Phone: [facility] Work Phone: 12-08-2021 08:37-0400 Body temperature 98.4 [degF] [facility] Work Phone: 12-08-2021 08:37-0400 Diastolic blood pressure 81 mm[Hg] [facility] Work Phone: 12-08-2021 08:37-0400 Respiratory rate 20 /min [facility] Work Phone: 12-08-2021 08:37-0400 Systolic blood pressure 195 mm[Hg] [facility] Work Phone: 12-08-2021 08:35-0400 Body height 165.1 cm [facility] Work Phone: 12-08-2021 08:35-0400 Body mass index (BMI) [Ratio] 34 kg/m2 [facility] Work Phone: 12-08-2021 08:35-0400 Body weight 92.6 kg [facility] Work Phone: 04-23-2021 15:48-0500 Heart rate 96 /min RADHA YADAV MD [facility] 04-23-2021 15:48-0500 Respiratory rate 20 /min RADHA YADAV MD [facility] 04-23-2021 14:45-0500 Diastolic blood pressure 87 mm[Hg] RADHA YADAV MD [facility] 04-23-2021 14:45-0500 Heart rate 101 /min RADHA YADAV MD [facility] 04-23-2021 14:45-0500 Respiratory rate 20 /min RADHA YADAV MD [facility] 04-23-2021 14:45-0500 Systolic blood pressure 133 mm[Hg] RADHA YADAV MD [facility] 04-23-2021 14:05-0500 Heart rate 107 /min RADHA YADAV MD [facility] 04-23-2021 14:05-0500 Respiratory rate 22 /min RADHA YADAV MD [facility] 04-23-2021 13:50-0500 Diastolic blood pressure 90 mm[Hg] RADHA YADAV MD [facility] 04-23-2021 13:50-0500 Systolic blood pressure 135 mm[Hg] RADHA YADAV MD [facility] Encounters Encounter Date Encounter Type Care Provider Facility Start: 08-01-2024 End: 08-01-[address] Yuridia Hernandez MD Work Phone: [facility] Work Phone: Start: 08-01-2024 End: 08-01-[address] Manuela Miller [place] Work Phone: Start: 08-01-2024 End: 08-01-2024 ambulatory Manuela Washburn Facility:[facility] Start: 07-14-2024 End: 07-14-2024 Patient encounter procedure Liliya Troncoso [facility] Work Phone: Start: 07-14-2024 End: 07-14-2024 ambulatory Liliya Troncoso Facility:[facility] Start: 07-04-2024 End: 07-04-[address] Manuela Miller [facility] Work Phone: Start: 07-04-2024 End: 07-04-2024 ambulatory Manuela Washburn Facility:[facility] Start: 06-30-2024 End: 06-30-[address] Yuridia Hernandez MD -[facility] Work Phone: Start: 06-30-2024 End: 06-30-2024 ambulatory Yuridia Hernandez Facility:[facility] Start: 06-25-2024 Non-patient / Non-visit Dr. Sarai Alcantaar MD -[facility] Work Phone: Start: 06-24-2024 Non-patient / Non-visit Dr. Sarai Alcantara MD -[facility] Work Phone: Start: 06-23-2024 ambulatory Tracy Angel Facility :[facility] Start: 06-23-2024 End: 06-25-2024 Evaluation and management of inpatient Dr. Tracy Angel MD -[facility] Work Phone: Start: 05-28-[address] Andre Duarte MD -[facility] Start: 05-28-2024 End: 05-28-[address] Andre Duarte MD -[facility] Work Phone: Start: 05-28-2024 End: 05-28-2024 ambulatory [facility] Facility:[facility] Start: 04-03-[address] [facility] Start: 04-02-2024 End: 04-02-[address] Andre Duarte MD -[facility] Work Phone: Start: 04-02-2024 End: 04-02-2024 ambulatory [facility] Start: 03-24-2024 End: 03-24-[address] Andre Duarte MD -[facility] Work Phone: Start: 03-24-2024 End: 03-24-2024 ambulatory [facility] Start: 03-17-2024 End: 03-17-2024 Patient encounter procedure Fredy Joy DO [facility] Work Phone: Start: 03-17-2024 End: 03-17-2024 ambulatory Fredy Benita Facility:[facility] Start: 03-14-2024 End: 03-14-[address] Yuridia Hernandez MD -Laboratory, [facility] Start: 03-14-2024 End: 03-14-2024 ambulatory Yuridia Hernandez OLS Facility:[facility] Start: 03-02-2024 Non-patient / Non-visit Dr. Sarai Alcantara MD -[facility] Work Phone: Start: 03-01-2024 Non-patient / Non-visit Dr. Sarai Alcantara MD -[facility] Work Phone: Start: 03-01-2024 ambulatory Sarai Alcantara Facility :[facility] Start: 03-01-2024 Non-patient / Non-visit Fredyalba Joy DO -[facility] Start: 02-29-2024 Non-patient / Non-visit Fredyalba Joy DO -[facility] Start: 02-29-2024 Non-patient / Non-visit Dr. Sarai Alcantara MD -[facility] Work Phone: Start: 02-28-2024 ambulatory Sarai Alcantara Facility :[facility] Start: 02-28-2024 End: 03-02-2024 Evaluation and management of inpatient Dr. Sarai Alcantara MD -Pro[facility] Care Unit Work Phone: Start: 02-28-2024 Non-patient / [facility] Start: 02-28-2024 ambulatory Yuridia Mary [facility] Start: 02-21-2024 End: 02-21-2024 ambulatory Yuridia Hernandez Facility:[facility] Start: 02-11-2024 End: 02-11-2024 ambulatory Yuridia Hernandez Facility:[facility] Start: 02-03-2024 ambulatory Erika Deras ty:[facility] Start: 02-03-2024 End: 02-04-2024 Evaluation and management of inpatient John Anders Facility:[facility] Start: 01-22-2024 End: 01-22-2024 ambulatory Manuela Washburn Facility:[facility] Start: 01-10-2024 End: 01-10-2024 Emergency department patient visit Yuridia Hernandez Facility:[facility] Start: 01-09-2024 End: 01-09-2024 ambulatory Talya Nichols [facility] Start: 01-09-2024 End: 01-09-2024 ambulatory Liliya Yomiosvaldomelodie Facility:[facility] Start: 12-27-2023 ambulatory Fredy Joy [facility] :[facility] Start: 12-26-2023 ambulatory Yuridia Hernandez [facility] Start: 12-26-2023 End: 12-28-2023 Evaluation and management of inpatient Yuridia Hernandez Facility:[facility] Start: 12-13-2023 End: 12-13-2023 ambulatory Manuela Wu Facility:[facility] Start: 12-10-2023 ambulatory Fredy Joy [facility] :[facility] Start: 12-10-2023 ambulatory Yuridia Hernandez [facility] Start: 12-08-2023 ambulatory Alexeyisaac Jayshree [facility] Start: 12-06-2023 End: 12-10-2023 Evaluation and management of inpatient Jayapracaities Stephany Facility:[facility] Start: 12-06-2023 ambulatory Anderson Hammond Facil [facility]y:[facility] Start: 12-05-2023 End: 12-05-2023 ambulatory Yuridia Hernandez Facility:[facility] Start: 12-02-2023 End: 12-02-2023 Emergency department patient visit Yuridia Hernandez Facility:[facility] Start: 11-23-2023 End: 11-23-2023 ambulatory Yuridia Hernandez Facility:[facility] Start: 11-21-2023 ambulatory Yuridia Hernandez Facility:[facility] Start: 11-18-2023 ambulatory Sarai Shannon Koram Facility :[facility] Start: 11-18-2023 End: 11-20-2023 Evaluation and management of inpatient Sarai Shannon Koram Facility:[facility] Start: 11-16-2023 Encounter for general adult medical examination without abnormal findings Yuridia Hernandez [facility] Start: 11-15-2023 ambulatory Yuridia Hernandez [facility] Start: 11-14-2023 End: 11-16-2023 Evaluation and management of inpatient Michelle Wu Facility:[facility] Start: 11-14-2023 ambulatory Michelle Washburn [facility] Start: 11-07-2023 End: 11-07-2023 ambulatory Yuridia Hernandez Facility:[facility] Start: 10-24-2023 ambulatory Talya Nichols Facility :[facility] Start: 08-17-2023 ambulatory TALYA NICHOLS DO Facil ity:B Start: 08-17-2023 End: 08-21-2023 Outreach Lab TALYA NICHOLS DO [facility] Start: 07-03-2023 End: 07-07-2023 ambulatory TALYA NICHOLS DO Facility:[facility] Start: 06-27-2023 End: 06-27-2023 Emergency department patient visit Dr. Talya Nichols Work Phone: [facility]Emer[facility] Work Phone: Start: 06-08-2023 End: 06-11-2023 Evaluation and management of inpatient AHMET CLARK MD [facility] Start: 06-08-2023 End: 06-08-2023 Emergency department patient visit DR MARGARET RILEY DO [facility] Start: 06-08-2023 End: 06-08-2023 ambulatory TALYA NICHOLS DO Facility:[facility] Start: 06-08-2023 End: 06-08-2023 Patient encounter procedure TALYA NICHOLS DO [facility] Start: 05-25-2023 End: 05-25-2023 Emergency department patient visit ANNY DA SILVA MD [facility] Start: 05-24-2023 End: 05-24-2023 ambulatory TALYA NICHOLS DO Facility:[facility] Start: 05-24-2023 End: 05-24-2023 Patient encounter procedure TALYA NICHOLS [facility] Start: 05-17-2023 End: 05-17-2023 ambulatory TALYA NICHOLS Facility:[facility] Start: 05-17-2023 End: 05-17-2023 Patient encounter procedure TALYA NICHOLS DO [facility] Start: 05-07-2023 End: 05-08-2023 ambulatory TALYA MAGDALENA DO Facility:[facility] Start: 05-07-2023 End: 05-08-2023 Observation DELIA JEFFERSON ANIMAL CARE PROVIDER-BAR TACKER [facility] Start: 05-04-2023 End: 05-10-[address] Talya Nichols Work Phone: [facility] Work Phone: Start: 05-04-2023 End: 05-10-[address] Talya Nichols Work Phone: [facility] Start: 04-30-2023 End: 05-01-2023 Emergency department patient visit Dr. Talya Nichols Work Phone: [facility]Emergency Department Work Phone: Start: 04-26-2023 Non-patient / Non-visit Dr. Talya Nichols Work Phone: [facility] Work Phone: Start: 04-26-2023 Non-patient / Non-visit Dr. Talya Nichols Work Phone: [facility] Start: 04-25-2023 Non-patient / Non-visit Dr. Talya Nichols Work Phone: [facility] Work Phone: Start: 04-25-2023 Non-patient / Non-visit Dr. Talya Nichols Work Phone: [facility] Start: 04-24-2023 Non-patient / Non-visit Dr. Talya Nichols Work Phone: [facility] Work Phone: Start: 04-24-2023 End: 04-26-2023 Evaluation and management of inpatient Dr. Talya Nichols Work Phone: [facility]-Progressive Care Unit Work Phone: Start: 04-23-2023 End: 04-23-[address] Talya Nichols Work Phone: [facility] Work Phone: Start: 04-13-2023 End: 04-13-2023 ambulatory TALYA NICHOLS DO Facility:B Start: 04-13-2023 End: 04-13-2023 Patient encounter procedure TALYA NICHOLS DO [facility] Start: 04-07-2023 End: 04-07-2023 Emergency department patient visit Dr. Talya Nichols Work Phone: [facility] Work Phone: Start: 04-02-2023 End: 04-02-[address] Talya Nichols Work Phone: [facility] Work Phone: Start: 04-02-2023 Non-patient / Non-visit Dr. Talya Nichols Work Phone: [facility] Start: 04-02-2023 End: 04-02-2023 Admission to same day surgery center Dr. Talya Nichols Work Phone: [facility]-Endoscopy Work Phone: Start: 04-02-2023 End: 04-02-[address] Talya Nichols Work Phone: [facility] Work Phone: Start: 03-21-2023 End: 03-21-2023 Patient encounter procedure KHURRAM ERICKSON MD [facility] Start: 03-21-2023 End: 03-21-2023 ambulatory TALYA NICHOLS DO Facility:[facility] Start: 03-09-2023 Non-patient / Non-visit Dr. Talya Nichols Work Phone: [facility] Start: 03-09-2023 Non-patient / Non-visit Dr. Talya Nichols Work Phone: [facility] Work Phone: Start: 03-08-2023 Non-patient / Non-visit Dr. Talya Nichols Work Phone: [facility] Start: 03-08-2023 Non-patient / Non-visit Dr. Talya Nichols Work Phone: [facility] Work Phone: Start: 03-07-2023 Non-patient / Non-visit Dr. Talya Nichols Work Phone: [facility] Start: 03-07-2023 End: 03-09-2023 Evaluation and management of inpatient Dr. Talya Nichols Work Phone: [facility]-Progressive Care Unit Work Phone: Start: 02-28-2023 End: 02-28-2023 ambulatory TALYA NICHOLS DO Facility:B Start: 02-28-2023 End: 02-28-2023 Patient encounter procedure TALYA NICHOLS DO [facility] Start: 02-21-2023 End: 02-25-2023 ambulatory TALYA NICHOLS DO Facility:[facility] Start: 02-21-2023 End: 02-21-[address] Talya Nichols Work Phone: [facility] Work Phone: Start: 02-20-2023 End: 02-20-2023 ambulatory TALYA NICHOLS DO Facility:[facility] Start: 02-20-2023 End: 02-20-2023 Patient encounter procedure KHURRAM ERICKSON MD [facility] Start: 02-15-2023 Non-patient / Non-visit Dr. Talya Nichols Work Phone: [facility] Work Phone: Start: 02-14-2023 Non-patient / Non-visit Dr. Talya Nichols Work Phone: [facility] Work Phone: Start: 02-14-2023 Non-patient / Non-visit Dr. Talya Nichols Work Phone: [facility] Start: 02-13-2023 End: 02-15-2023 Evaluation and management of inpatient Dr. Talya Nichols Work Phone: [facility]-Intensive Care Unit Work Phone: Start: 02-08-2023 End: 02-08-2023 Emergency department patient visit Dr. Talya Nichols Work Phone: [facility]Emergency Department Work Phone: Start: 02-07-2023 End: 02-07-2023 ambulatory TALYA NICHOLS DO Facility:[facility] Start: 02-07-2023 End: 02-07-2023 Patient encounter procedure TALYA NICHOLS DO [facility] Start: 02-02-2023 End: 02-02-2023 ambulatory TALYA NICHOLS DO Facility:[facility] Start: 02-02-2023 End: 02-02-2023 Patient encounter procedure TALYAMICHAEL NICHOLS DO [facility] Start: 01-23-2023 End: 01-23-2023 ambulatory TALYA NICHOLS DO Facility:[facility] Start: 01-19-2023 End: 01-19-2023 ambulatory TALYA NICHOLS DO Facility:[facility] Start: 01-19-2023 End: 01-19-2023 Patient encounter procedure TALYA Brenner MAGDALENA DO [facility] Start: 01-19-2023 End: 01-19-2023 Well adult monitoring check done TALYA NICHOLS DO [facility] Start: 01-19-2023 End: 01-19-2023 ambulatory TALYA NICHOLS DO Facility:[facility] Start: 12-11-2022 End: 12-11-[address] Talya Nichols Work Phone: [facility] Work Phone: Start: 12-11-2022 End: 12-11-[address] Talya Nichols Work Phone: [facility] Start: 11-28-2022 End: 11-28-2022 ambulatory ANCA TY MD Facility:[facility] Start: 11-28-2022 End: 11-28-2022 Patient encounter procedure ANCA TY MD [facility] Start: 11-24-2022 End: 11-24-2022 ambulatory MELONIE BULLARD ANIMAL CARE PROVIDER - BAR TACKER Facility:[facility] Start: 11-24-2022 End: 11-24-2022 Patient encounter procedure MELONIE BULLARD ANIMAL CARE PROVIDER - BAR TACKER [facility] Start: 11-18-2022 Non-patient / Non-visit Dr. Talya Nichols Work Phone: [facility] Work Phone: Start: 11-17-2022 Non-patient / Non-visit Dr. Talya Nichols Work Phone: [facility] Work Phone: Start: 11-16-2022 Non-patient / Non-visit Dr. Talya Nichols Work Phone: [facility] Start: 11-16-2022 End: 11-18-2022 Evaluation and management of inpatient [facility]Pro[facility] Care Unit Work Phone: Start: 11-08-2022 End: 11-08-2022 ambulatory TALYA NICHOLS DO Facility:[facility] Start: 11-08-2022 End: 11-08-2022 Patient encounter procedure TALYA NICHOLS DO [facility] Start: 10-31-2022 End: 10-31-2022 ambulatory TALYA NICHOLS DO Facility:[facility] Start: 10-24-2022 End: 10-24-2022 ambulatory TALYA NICHOLS DO Facility:[facility] Start: 10-24-2022 End: 10-24-2022 Patient encounter procedure TALYA NICHOLS DO [facility] Start: 10-22-2022 End: 10-23-2022 Emergency department patient visit Dr. Talya Nichols Work Phone: [facility]Emergency Department Work Phone: Start: 10-19-2022 End: 10-19-2022 ambulatory TALYA NICHOLS DO Facility:[facility] Start: 07-06-2022 End: 07-06-[address] Talya Nichols Work Phone: [facility] Work Phone: Start: 06-16-2022 End: 06-16-2022 Patient encounter procedure PACO VAZQUEZ ANIMAL CARE PROVIDER-BAR TACKER [facility] Start: 06-09-2022 End: 06-09-2022 Patient encounter procedure PACO VAZQUEZ ANIMAL CARE PROVIDER-BAR TACKER [facility] Start: 06-06-2022 End: 06-06-2022 Patient encounter procedure TALYA NICHOLS DO [facility] Start: 05-25-2022 Non-patient / Non-visit Dr. Talya Nichols Work Phone: [facility] Start: 05-24-2022 End: 05-26-2022 Evaluation and management of inpatient Dr. Talya Nichols Work Phone: [facility] Start: 05-24-2022 End: 05-26-[address] Talya Nichols Work Phone: [facility] Work Phone: Start: 05-02-2022 End: 05-02-[address] Talya Nichols Work Phone: [facility] Start: 04-13-2022 Non-patient / Non-visit Dr. Talya Nichols Work Phone: [facility] Start: 04-12-2022 Non-patient / Non-visit Dr. Talya Nichols Work Phone: [facility] Start: 04-11-2022 Non-patient / Non-visit Dr. Talya Nichols Work Phone: [facility] Start: 04-11-2022 End: 04-13-2022 Evaluation and management of inpatient Dr. Talya Nichols Work Phone: [facility]Progressive Care Unit Start: 03-22-2022 End: 03-22-2022 Patient encounter procedure TALYA NICHOLS DO [facility] Start: 03-16-2022 Non-patient / Non-visit Dr. Talya Nichols Work Phone: [facility] Start: 03-16-2022 Non-patient / Non-visit Dr. Talya Nichols Work Phone: [facility] Start: 03-15-2022 Non-patient / Non-visit Dr. Talya Nichols Work Phone: [facility] Start: 03-15-2022 Non-patient / Non-visit Dr. Talya Nichols Work Phone: [facility] Start: 03-14-2022 Non-patient / Non-visit Dr. Talya Nichols Work Phone: [facility] Start: 03-14-2022 Non-patient / Non-visit Dr. Talya Nichols Work Phone: [facility] Start: 03-13-2022 Non-patient / Non-visit Dr. Talya Nichols Work Phone: [facility] Start: 03-13-2022 Non-patient / Non-visit Dr. Talya Nichols Work Phone: [facility] Start: 03-12-2022 Non-patient / Non-visit Dr. Talya Nichols Work Phone: [facility] Start: 03-12-2022 Non-patient / Non-visit Dr. Talya Nichols Work Phone: [facility] Start: 03-12-2022 End: 03-16-2022 Evaluation and management of inpatient Dr. Talya Nichols Work Phone: [facility] 2 Start: 01-03-2022 End: 01-03-2022 Patient encounter procedure PACO VAZQUEZ ANIMAL CARE PROVIDER-BAR TACKER [facility] Start: 12-16-2021 Non-patient / Non-visit Dr. Talya Nichols Work Phone: [facility] Start: 12-15-2021 Non-patient / Non-visit Dr. Talya Nichols Work Phone: [facility] Start: 12-14-2021 End: 12-16-2021 Non-patient / Non-visit Dr. Talya Nichols Work Phone: [facility] Start: 12-13-2021 End: 12-16-2021 Evaluation and management of inpatient Dr. Talya Nichols Work Phone: [facility] 3 Start: 12-13-2021 End: 12-16-2021 observation encounter Dr. Talya Nichols Work Phone: [facility] Work Phone: Start: 12-08-2021 End: 12-08-2021 Emergency department patient visit [facility] Start: 11-24-2021 End: 11-24-2021 Patient encounter procedure TALYA NICHOLS DO [facility] Start: 04-23-2021 End: 04-23-2021 Emergency department patient visit RADHA YADAV MD [facility] Procedures Date Procedure Procedure Detail Performing [...] Work Phone: Start: 06-09-2023 Echocardiography DAMARIS POLLARD NADIABAR TACKER Comment on above: (06/09/2023) Summary: 1. Left [...] Phone: Start: 03-15-2022 Cardiac catheterization MELONIE BULLARD ANIMAL CARE PROVIDER - BAR TACKER Comment on above: Left main with 25% stenosis, LAD with mi ld luminal irregularities , diagonal 1 with 50% stenosis, LCx and RCA with mild luminal irregularities Start: 03-12-2022 Plain chest X-ray Dr. Tlaya Nichols Work Phone: Start: 03-12-2022 Echocardiography MELONIE BULLARD ANIMAL CARE PROVIDER - BAR TACKER Comment on above: EF 65% Start: 12-15-2021 [...] Activity Detail Author Start: 06-25-2024 Patient discharge [facility] Start: 06-24-2024 [facility] Start: 06-23-2024 Application of elastic bandage [facility] Start: 06-23-2024 Assessment of risk of venous thromboembolism [facility] Start: 06-23-2024 Care regimes management [facility] Start: 06-23-2024 Fall prevention [facility] Start: 06-23-2024 Inhalation therapy procedure [facility] Start: 06-23-2024 Insertion of catheter into peripheral vein [facility] Start: 06-23-2024 Introduction of urinary catheter [facility] Start: 06-23-2024 Measuring intake and output [facility] Start: 06-23-2024 Methicillin resistant Staphylococcus aureus screening test [facility] Start: 06-23-[address] [facility] Start: 06-23-2024 Oxygen therapy [facility] Start: 06-23-2024 Providing care according to standard [facility] Start: 06-23-2024 Provision of activity privileges [facility] Start: 06-23-2024 Referral to occupational therapist [facility] Start: 06-23-2024 Referral to service [facility] Start: 06-23-2024 End: 06-23-2024 [facility] Start: 06-23-2024 Following clinical pathway protocol [facility] Start: 06-23-2024 Verification routine [facility] Start: 06-23-2024 Respiratory pathogens DNA and RNA panel - Respiratory specimen by JOSH with probe detection [facility] Start: 06-23-2024 Admission procedure [facility] Start: 06-23-2024 Hospital admission, emergency, from emergency room, medical nature [facility] Start: 06-23-2024 [facility] Start: 03-02-2024 Patient discharge [facility] Start: 02-29-2024 [facility] Start: 02-29-2024 Referral to gastroenterology service [facility] Start: 02-29-2024 Application of intermittent pneumatic compression device [facility] Start: 02-28-2024 Following clinical pathway protocol [facility] Start: 02-28-2024 Transfusion of blood product [facility] Start: 02-28-2024 Assessment of risk of venous thromboembolism [facility] Start: 02-28-2024 Care regimes management [facility] Start: 02-28-2024 Insertion of catheter into peripheral vein [facility] Start: 02-28-2024 Measuring intake and output [facility] Start: 02-28-[address] [facility] Start: 02-28-2024 Oxygen therapy [facility] Start: 02-28-2024 Providing care according to standard [facility] Start: 02-28-2024 Provision of activity privileges [facility] Start: 02-28-2024 Referral to occupational therapist [facility] Start: 02-28-2024 Referral to service [facility] Start: 02-28-2024 End: 02-28-2024 [facility] Start: 02-28-2024 Admission procedure [facility] Start: 02-28-2024 Administration of blood product [facility] Start: 02-28-2024 Inhalation therapy procedure [facility] Start: 02-28-2024 Patient referral to [facility] Start: 06-27-2023 [facility] Start: 05-01-2023 [facility] Start: 04-26-2023 Patient discharge [facility] Start: 04-25-2023 Referral to service [facility] Start: 04-25-2023 Referral to dinkey driver [facility] Start: 04-25-2023 Inhalation therapy procedure [facility] Start: 04-24-2023 Assessment of risk of venous thromboembolism [facility] Start: 04-24-2023 Care regimes management [facility] Start: 04-24-2023 Catheterization of vein [facility] Start: 04-24-2023 Elevation of affected extremity [facility] Start: 04-24-2023 Insertion of catheter into peripheral vein [facility] Start: 04-24-2023 Measuring intake and output [facility] Start: 04-24-[address] [facility] Start: 04-24-2023 Patient education [facility] Start: 04-24-2023 Patient referral to [facility] Start: 04-24-2023 Providing care according to standard [facility] Start: 04-24-2023 Provision of activity privileges [facility] Start: 04-24-2023 Referral to occupational therapist [facility] Start: 04-24-2023 Referral to service [facility] Start: 04-24-2023 [facility] Start: 04-24-2023 Following clinical pathway protocol [facility] Start: 04-24-2023 Verification routine [facility] Start: 04-24-2023 Admission procedure [facility] Start: 04-24-[address] [facility] Start: 04-24-2023 Hospital admission, emergency, from emergency room, medical nature [facility] Start: 04-24-2023 Oxygen therapy [facility] Start: 04-24-2023 [facility] Start: 04-07-2023 [facility] Start: 04-07-2023 [facility] Start: 04-02-2023 Egd insert guide wire dilator passage esophagus EGD GUIDE WIRE INSERTION [facility] Start: 04-02-2023 Patient discharge [facility] Start: 03-09-2023 Enteric Bacteriology Enteric Bacteriology [facility] Start: 03-09-2023 Patient discharge [facility] Start: 03-08-2023 Referral to service [facility] Start: 03-08-2023 Care regimes management [facility] Start: 03-08-[address] [facility] Start: 03-08-2023 [facility] Start: 03-08-2023 Enteric precautions [facility] Start: 03-08-2023 Inhalation therapy procedure [facility] Start: 03-07-2023 Following clinical pathway protocol [facility] Start: 03-07-2023 Application of intermittent pneumatic compression device [facility] Start: 03-07-2023 Assessment of risk of venous thromboembolism [facility] Start: 03-07-2023 Insertion of catheter into peripheral vein [facility] Start: 03-07-2023 Oxygen therapy [facility] Start: 03-07-2023 Providing care according to standard [facility] Start: 03-07-2023 Provision of activity privileges [facility] Start: 03-07-2023 Referral to gastroenterology service [facility] Start: 03-07-2023 Referral to occupational therapist [facility] Start: 03-07-2023 Referral to service [facility] Start: 03-07-2023 [facility] Start: 03-07-2023 Verification routine [facility] Start: 03-07-2023 Admission procedure [facility] Start: 03-07-2023 Leukocyte reduced red blood cells [facility] Start: 03-07-2023 [facility] Start: 03-07-2023 Hospital admission, emergency, from emergency room, medical nature [facility] Start: 03-07-2023 Administration of blood product [facility] Start: 03-07-2023 [facility] Start: 02-15-2023 Patient discharge [facility] Start: 02-14-2023 Referral to occupational therapist [facility] Start: 02-14-2023 Referral to service [facility] Start: 02-14-2023 Thyroid stimulating hormone measurement [facility] Start: 02-14-2023 [facility] Start: 02-14-2023 Administration of blood product [facility] Start: 02-14-2023 Following clinical pathway protocol [facility] Start: 02-14-2023 Consultation [facility] Start: 02-14-2023 Inhalation therapy procedure [facility] Start: 02-13-2023 Oxygen therapy [facility] Start: 02-13-2023 Care regimes management [facility] Start: 02-13-[address] [facility] Start: 02-13-2023 Provision of activity privileges [facility] Start: 02-13-2023 Assessment of risk of venous thromboembolism [facility] Start: 02-13-2023 Insertion of catheter into peripheral vein [facility] Start: 02-13-2023 Measuring intake and output [facility] Start: 02-13-2023 Providing care according to standard [facility] Start: 02-13-2023 Respiratory therapy [facility] Start: 02-13-2023 Verification routine [facility] Start: 02-13-2023 End: 02-13-2023 [facility] Start: 02-13-2023 Admission procedure [facility] Start: 02-13-2023 End: 02-13-2023 Blood culture [facility] Start: 02-13-2023 Pulmonary ventilation perfusion study [facility] Start: 02-13-2023 [facility] Start: 02-13-2023 Bacteria identified in Blood by Culture Blood Culture [facility] Start: 02-08-2023 [facility] Start: 02-08-2023 [facility] Start: 11-18-2022 Patient discharge [facility] Start: 11-17-2022 Referral to service [facility] Start: 11-17-2022 Referral to service [facility] Start: 11-17-2022 Oxygen therapy [facility] Start: 11-17-[address] [facility] Start: 11-17-2022 Referral to gastroenterology service [facility] Start: 11-17-2022 Care regimes management [facility] Start: 11-17-2022 Administration of blood product [facility] Start: 11-16-2022 Care planning and problem solving actions [facility] Start: 11-16-2022 Transfusion of blood product [facility] Start: 11-16-2022 [facility] Start: 11-16-2022 Administration of blood product [facility] Start: 11-16-2022 Following clinical pathway protocol [facility] Start: 11-16-2022 Leukocyte reduced red blood cells [facility] Start: 11-16-2022 [facility] Start: 11-16-2022 Admission procedure [facility] Start: 11-16-2022 Administration of blood product [facility] Start: 11-16-2022 [facility] Start: 11-16-2022 Patient referral to dietitian [facility] Start: 10-22-2022 [facility] Start: 05-26-2022 Patient discharge [facility] Start: 05-24-2022 Dual pressure spontaneous ventilation support [facility] Start: 05-24-2022 Fluid restriction [facility] Start: 05-24-2022 Following clinical pathway protocol [facility] Start: 05-24-2022 Assessment of risk of venous thromboembolism [facility] Start: 05-24-2022 Care regimes management [facility] Start: 05-24-2022 Incentive spirometry [facility] Start: 05-24-2022 Insertion of catheter into peripheral vein [facility] Start: 05-24-2022 Measuring intake and output [facility] Start: 05-24-2022 Oxygen therapy [facility] Start: 05-24-2022 Providing care according to standard [facility] Start: 05-24-2022 Provision of activity privileges [facility] Start: 05-24-2022 Referral to occupational therapist [facility] Start: 05-24-2022 Referral to service [facility] Start: 05-24-2022 [facility] Start: 05-24-2022 Verification routine [facility] Start: 05-24-2022 Admission procedure [facility] Start: 05-24-2022 Inhalation therapy procedure [facility] Start: 04-13-2022 Patient discharge [facility] Start: 04-11-2022 Following clinical pathway protocol [facility] Start: 04-11-2022 Assessment of risk of venous thromboembolism [facility] Start: 04-11-2022 Catheterization of vein [facility] Start: 04-11-2022 Incentive spirometry [facility] Start: 04-11-2022 Insertion of catheter into peripheral vein [facility] Start: 04-11-2022 Measuring intake and output [facility] Start: 04-11-2022 Oxygen therapy [facility] Start: 04-11-2022 Providing care according to standard [facility] Start: 04-11-2022 Provision of activity privileges [facility] Start: 04-11-2022 Care regimes management [facility] Start: 04-11-[address] [facility] Start: 04-11-2022 Admission procedure [facility] Start: 04-11-2022 End: 04-11-2022 [facility] Start: 03-16-2022 Patient discharge [facility] Start: 03-15-2022 Patient referral [facility] Work Phone: Start: 03-15-2022 End: 03-15-2022 [facility] Start: 03-15-[address] [facility] Start: 03-15-2022 Provision of activity privileges [facility] Start: 03-15-2022 Scheduling [facility] Start: 03-15-2022 Taking patient vital signs [facility] Start: 03-15-2022 Vascular disease risk assessment [facility] Start: 03-15-2022 Inhalation therapy procedure [facility] Start: 03-14-2022 Catheterization of vein [facility] Start: 03-14-2022 Medication not administered [facility] Start: 03-14-[address] [facility] Start: 03-14-2022 Preoperative care [facility] Start: 03-14-2022 [facility] Start: 03-14-2022 [facility] Start: 03-13-2022 Catheterization of vein [facility] Start: 03-13-2022 Medication not administered [facility] Start: 03-13-[address] [facility] Start: 03-13-2022 Preoperative care [facility] Start: 03-13-2022 [facility] Start: 03-12-2022 Referral to service [facility] Start: 03-12-2022 Referral to occupational therapist [facility] Start: 03-12-2022 Referral to dinkey driver [facility] Start: 03-12-2022 Patient referral to dietitian [facility] Start: 03-12-2022 Assessment of risk of venous thromboembolism [facility] Start: 03-12-2022 Care regimes management [facility] Start: 03-12-2022 Elevation of affected extremity [facility] Start: 03-12-2022 Fluid restriction [facility] Start: 03-12-2022 Incentive spirometry [facility] Start: 03-12-2022 Insertion of catheter into peripheral vein [facility] Start: 03-12-2022 Measuring intake and output [facility] Start: 03-12-[address] [facility] Start: 03-12-2022 Oxygen therapy [facility] Start: 03-12-2022 Patient education [facility] Start: 03-12-2022 Providing care according to standard [facility] Start: 03-12-2022 Provision of activity privileges [facility] Start: 03-12-2022 Referral to [facility] Start: 03-12-2022 [facility] Start: 03-12-2022 Following clinical pathway protocol [facility] Start: 03-12-2022 Admission procedure [facility] Start: 12-16-2021 Patient discharge [facility] Start: 12-14-2021 Application of intermittent pneumatic compression device [facility] Start: 12-13-2021 Consultation for treatment [facility] Start: 12-13-2021 Assessment of risk of venous thromboembolism [facility] Start: 12-13-2021 Care regimes management [facility] Start: 12-13-2021 Fall prevention [facility] Start: 12-13-2021 Incentive spirometry [facility] Start: 12-13-2021 Inhalation therapy procedure [facility] Start: 12-13-2021 Insertion of catheter into peripheral vein [facility] Start: 12-13-2021 Introduction of urinary catheter [facility] Start: 12-13-2021 Measuring intake and output [facility] Start: 12-13-2021 Oxygen therapy [facility] Start: 12-13-2021 Providing care according to standard [facility] Start: 12-13-2021 Provision of activity privileges [facility] Start: 12-13-2021 Referral to occupational therapist [facility] Start: 12-13-2021 Referral to service [facility] Start: 12-13-2021 [facility] Start: 12-13-2021 Following clinical pathway protocol [facility] Start: 12-13-2021 Verification routine [facility] Work Phone: Start: 12-13-2021 Admission procedure [facility] Start: 12-13-2021 [facility] Start: 12-08-2021 Inhalation therapy procedure [facility] Work Phone: Alanine aminotransfe rase [Enzymatic activity/volume] in Serum or Plasma [facility] Albumin [Mass/volume ] in Serum or Plasma [facility] Alkaline phosphatase [Enzymatic activity/volume] in Serum or Plasma [facility] Anion gap measurement [facility] Aspartate aminotrans ferase [Enzymatic activity/volume] in Serum or Plasma [facility] Bilirubin, total measurement [facility] BUN/Creatinine ratio [facility] Calcium [Mass/volume ] in Serum or Plasma [facility] Carbon dioxide, tota l [Moles/volume] in Serum or Plasma [facility] CBC W Auto Different ial panel - Blood [facility] Chloride [Moles/volu me] in Serum or Plasma [facility] Cobalamin (Vitamin B 12) [Mass/volume] in Serum or Plasma [facility] Comprehensive metabo lic 2000 panel - Serum or Plasma [facility] Creatinine [Moles/vo lume] in Serum or Plasma [facility] Ferritin [Mass/volum e] in Serum or Plasma [facility] Folate [Moles/volume ] in Serum or Plasma [facility] Gastrointestinal pat hogens panel - Stool by JOSH with probe detection [facility] Giardia lamblia Ag [ Presence] in Stool by Immunoassay [facility] Glucose [Mass/volume ] in Serum or Plasma [facility] Hematocrit [Volume F raction] of Blood [facility] Hemoglobin [Mass/vol ume] in Blood [facility] Iron and Iron bindin g capacity panel - Serum or Plasma [facility] Leukocytes [#/volume] in Blood [facility] Magnesium [Mass/volu me] in Serum or Plasma [facility] Magnesium measurement [facility] Magnesium measurement [facility] Mean corpuscular hem oglobin concentration determination [facility] Mean corpuscular hem oglobin determination [facility] Measurement of renal function [facility] Neutrophil count [facility] Neutrophil percent differential count [facility] Patient Education [facility] Work Phone: Patient referral [facility] Work Phone: Platelets [#/volume] in Blood [facility] Potassium [Moles/vol ume] in Serum or Plasma [facility] Red blood cell count [facility] Red cell distributio n width determination [facility] Reticulocyte count [facility] Serum inorganic phos phate measurement [facility] Sodium [Moles/volume ] in Serum or Plasma [facility] Total protein measurement [facility] Troponin T.cardiac [Mass/volume] in Serum or Plasma by High sensitivity method [facility] Urea nitrogen [Mass/ volume] in Serum or Plasma [facility] Immunizations Immunization Date Immunization Notes Care Provider [facility] 01-19-2023 Pneumococcal conjuga te PCV20, polysaccharide CIS385 conjugate, adjuvant, PF; Translations: [Prevnar 20] TALYA NICHOLS DO [facility] 12-14-2022 influenza, injectabl e, quadrivalent, preservative free Dr. Yuridia Hernandez MD Work Phone: [facility] 12-14-2022 influenza, high dose seasonal, preservative-free; Translations: [Fluad Quadrivalent PF ] TALYA NICHOLS DO [facility] 12-28-[address] [employer] [address]. Talya Nichols Work Phone: [facility] 12-28-2021 SARS-CoV-2 (CV19)mRNA-[id number] bivalent vac TALYA NICHOLS DO [facility] 12-28-2021 SARSCoV2 (CV19)mRNA-[id number](6y+ bival spencer TALYA NICHOLS DO [facility] 12-27-2021 influenza virus vacc ine, unspecified formulation TALYA NICHOLS DO [facility] 12-27-2021 influenza, injectabl e, quadrivalent, preservative free [facility] 12-27-2021 influenza, seasonal, injectable Dr. Talya Nichols Work Phone: [facility] 01-10-2021 SARS-CoV-2 mRNA (tozinameran) vaccine RADHA YADAV MD [facility] 11-08-2020 influenza virus vacc ine, unspecified formulation RADHA YADAV MD [facility] 06-19-2020 SARS-CoV-2 mRNA (tozinameran) vaccine RADHA YADAV MD [facility] 05-25-2020 SARS-CoV-2 mRNA (tozinameran) vaccine RADHA YADAV MD [facility] 11-19-2019 influenza virus vacc ine, unspecified formulation RADHA YADAV MD [facility] 12-23-2018 influenza virus vacc ine, unspecified formulation RADHA YADAV MD [facility] 01-31-2016 pneumococcal polysaccharide vaccine, 23 valent RADHA YADAV MD [facility] 07-31-2014 pneumococcal polysaccharide vaccine, 23 valent RADHA YADAV MD [facility] 12-09-2009 tetanus and diphther ia toxoids, adsorbed, preservative free, for adult use (5 Lf of tetanus toxoid and 2 Lf of diphtheria toxoid) RADHA YADAV MD [facility] Payers Date Payer Category Payer Self-pay [id number] 2023 Medicare [id number] 2013 Medicare [id number] 1939 Unknown [id number] 2.16.8 40.1.209899.3.579.2. 1939 Unknown [id number] 2.16.8 40.1.838874.3.579.2.627 1939 Unknown [id number] 2.16.8 40.1.462852.3.579.2.7 1939 Unknown [id number] 2.16.8 40.1.079134.3.579.2.627 1939 Unknown [id number] 2.16.8 40.1.658444.3.579.2.7 1939 Unknown [id number] 2.16.8 40.1.317517.3.579.2.627 1939 Unknown [id number] 2.16.8 40.1.916798.3.579.2.627 1939 Unknown [id number] 2.16.8 40.1.880442.3.579.2.627 1939 Unknown [id number] 2.16.8 40.1.737906.3.579.2.627 1939 Unknown [id number] 2.16.8 40.1.334330.3.579.2.627 1939 Unknown [id number] 2.16.8 40.1.509317.3.579.2.62 1939 Unknown [id number] 2.16.8 40.1.634647.3.579.2.62 1939 Unknown [id number] 2.16.8 40.1.293683.3.579.2.62 1939 Unknown [id number] 2.16.8 40.1.812417.3.579.2.62 1939 Unknown [id number] 2.16.8 40.1.259409.3.579.2.62 1939 Unknown [id number] 2.16.8 40.1.812852.3.579.2.627 1939 Unknown [id number] 2.16.8 40.1.446135.3.579.2.62 1939 Unknown [id number] 2.16.8 40.1.732948.3.579.2.627 1939 Unknown [id number] 2.16.8 40.1.375330.3.579.2.62 1939 Unknown [id number] 2.16.8 40.1.363519.3.579.2.627 1939 Unknown [id number] 2.16.8 40.1.269429.3.579.2.627 1939 Unknown [id number] 2.16.8 40.1.611362.3.579.2.627 1939 Unknown [id number] 2.16.8 40.1.920935.3.579.2.627 1939 Unknown [id number] 2.16.8 40.1.198860.3.579.2.62 1939 Unknown [id number] 2.16.8 40.1.297990.3.579.2.627 1939 Unknown [id number] 2.16.8 40.1.284335.3.579.2.62 1939 Unknown [id number] 2.16.8 40.1.254249.3.579.2.627 1939 Unknown [id number] 2.16.8 40.1.032406.3.579.2.627 Unknown [id number] 2.16.8 40.1.018442.3.579.2.462 Unknown [id number] 2.16.8 40.1.822228.3.579.2.462 Unknown [id number] 2.16.8 40.1.741090.3.579.2.462 Unknown [id number] 2.16.8 40.1.828244.3.579.2.462 Unknown [id number] 2.16.8 40.1.473900.3.579.2.462 Unknown [id number] 2.16.8 40.1.817192.3.579.2.462 Unknown [id number] 2.16.8 40.1.433028.3.579.2.462 Unknown [id number] 2.16.8 40.1.296189.3.579.2.462 Unknown [id number] 2.16.8 40.1.071718.3.579.2.462 Unknown [id number] 2.16.8 40.1.106961.3.579.2.462 Unknown [id number] 2.16.8 40.1.890926.3.579.2.462 Unknown [id number] 2.16.8 40.1.557452.3.579.2.462 Unknown [id number] 2.16.8 40.1.428139.3.579.2.462 Unknown [id number] 2.16.8 40.1.954862.3.579.2.462 Unknown [id number] 2.16.8 40.1.509466.3.579.2.462 Unknown [id number] 2.16.8 40.1.461598.3.579.2.462 Unknown [id number] 2.16.8 40.1.712027.3.579.2.462 Unknown [id number] 2.16.8 40.1.354823.3.579.2.462 Unknown [id number] 2.16.8 40.1.201887.3.579.2.462 Unknown [id number] 2.16.8 40.1.760098.3.579.2.462 Unknown [id number] 2.16.8 40.1.109392.3.579.2.462 Unknown [id number] 2.16.8 40.1.395108.3.579.2.462 Unknown [id number] 2.16.8 40.1.263998.3.579.2.462 Unknown [id number] 2.16.8 40.1.004486.3.579.2.462 Unknown [id number] 2.16.8 40.1.897978.3.579.2.462 Unknown [id number] 2.16.8 40.1.645429.3.579.2.462 Unknown [id number] 2.16.8 40.1.143287.3.579.2.462 Unknown [id number] 2.16.8 40.1.005401.3.579.2.462 Unknown [id number] 2.16.8 40.1.505088.3.579.2.462 Unknown [id number] 2.16.8 40.1.498013.3.579.2.462 Unknown [id number] 2.16.8 40.1.789797.3.579.2.462 Unknown [id number] 2.16.8 40.1.984829.3.579.2.462 Unknown [id number] 2.16.8 40.1.145373.3.579.2.462 Unknown [id number] 2.16.8 40.1.805023.3.579.2.462 Unknown [id number] 2.16.8 40.1.401009.3.579.2.462 Unknown [id number] 2.16.8 40.1.103113.3.579.2.462 Unknown [id number] 2.16.8 40.1.271653.3.579.2.462 Unknown [id number] 2.16.8 40.1.815972.3.579.2.462 Unknown [id number] 2.16.8 40.1.823659.3.579.2.462 Unknown [id number] 2.16.8 40.1.556024.3.579.2.462 Unknown [id number] 2.16.8 40.1.834739.3.579.2.462 Unknown [id number] 2.16.8 40.1.787054.3.579.2.462 Unknown [id number] 2.16.8 40.1.111396.3.579.2.462 Unknown [id number] 2.16.8 40.1.963469.3.579.2.462 Unknown [id number] 2.16.8 40.1.396243.3.579.2.462 Unknown [id number] 2.16.8 40.1.107838.3.579.2.462 Unknown [id number] 2.16.8 40.1.628127.3.579.2.462 Unknown [id number] 2.16.8 40.1.257768.3.579.2.462 Unknown [id number] 2.16.8 40.1.232366.3.579.2.462 Unknown [id number] 2.16.8 40.1.072022.3.579.2.462 Unknown [id number] 2.16.8 40.1.246493.3.579.2.462 Unknown [id number] 2.16.8 40.1.166741.3.579.2.462 Unknown [id number] 2.16.8 40.1.791512.3.579.2.462 Unknown [id number] 2.16.8 40.1.010087.3.579.2.462 Unknown [id number] 2.16.8 40.1.750944.3.579.2.462 Unknown [id number] 2.16.8 40.1.763747.3.579.2.462 Unknown [id number] 2.16.8 40.1.508738.3.579.2.462 Unknown [id number] 2.16.8 40.1.445420.3.579.2.462 Unknown [id number] 2.16.8 40.1.186240.3.579.2.462 Unknown [id number] 2.16.8 40.1.202874.3.579.2.462 Unknown [id number] 2.16.8 40.1.273820.3.579.2.462 Unknown [id number] 2.16.8 40.1.250089.3.579.2.462 Unknown [id number] 2.16.8 40.1.340676.3.579.2.462 Unknown [id number] 2.16.8 40.1.428460.3.579.2.462 Unknown [id number] 2.16.8 40.1.085485.3.579.2.462 Unknown [id number] 2.16.8 40.1.440861.3.579.2.462 Unknown [id number] 2.16.8 40.1.331735.3.579.2.462 Social History Date Type Detail Facility Start: 02-27-2019 End: 06-23-2024 Ex-smoker (finding) [facility] Comment on above: no smoke exposure Sex Assigned At [facility] Start: 12-08-2021 End: 06-27-2023 Tobacco smoking status NHIS Unknown if ever smoked [facility] Start: 1940 Sex Assigned At Male [facility] Start: 06-23-2024 End: 06-25-2024 Sex Male (finding) [facility] Medical Equipment Procedure Code Equipment Code Equipment Origin al Text Equipment Identifier Dates Blood Glucose Te st Strips Start: 09-21-2020 See Instructions , One touch ultra blue test strips #60 pt to test twice daily., # 1 EA, 11 Refill(s), Pharmacy: [facility], Controlled diabetes mellitus with hyperglycemia Abnormal blood sugar, 162.4, cm, 07/06/21 13:45:00 EDT, Hei... Start: 09-27-2021 See Instructions , One touch Delica Lancet 33g, 1 box of 100, testing 2 times daily, # 1 EA, 11 Refill(s), Pharmacy: [id number], Controlled diabetes mellitus with hyperglycemia Abnormal blood sugar, 162.5, cm, 10/05/21 14:24:00 EDT, Heigh... Start: 10-26-2021 See Instructions , One touch ultra blue test strips #60 pt to test twice daily., # 1 EA, 11 Refill(s), Pharmacy: [facility], Controlled diabetes mellitus with hyperglycemia Abnormal blood sugar, 162.4, cm, 07/06/21 13:45:00 EDT, Hei... Start: 09-27-2021 See Instructions , One touch Delica Lancet 33g, 1 box of 100, testing 2 times daily, # 1 EA, 11 Refill(s), Pharmacy: [id number], Controlled diabetes mellitus with hyperglycemia Abnormal blood sugar, 162.5, cm, 10/05/21 14:24:00 EDT, Heigh... Start: 10-26-2021 See Instructions , One touch ultra blue test strips #60 pt to test twice daily., # 1 EA, 11 Refill(s), Pharmacy: [facility], Controlled diabetes mellitus with hyperglycemia Abnormal blood sugar, 162.4, cm, 07/06/21 13:45:00 EDT, Hei... Start: 09-27-2021 See Instructions , One touch Delica Lancet 33g, 1 box of 100, testing 2 times daily, # 1 EA, 11 Refill(s), Pharmacy: [id number], Controlled diabetes mellitus with hyperglycemia Abnormal blood sugar, 162.5, cm, 10/05/21 14:24:00 EDT, Heigh... Start: 10-26-2021 See Instructions , One touch ultra blue test strips #60 pt to test twice daily., # 1 EA, 11 Refill(s), Pharmacy: [facility] #[id number], Controlled diabetes mellitus with hyperglycemia Type 2 diabetes mellitus with hemoglobin A1c goal of less than 7.5%, 165... Start: 06-02-2022 See Instructions , One touch Delica Lancet 33g, 1 box of 100, testing 2 times daily, # 1 EA, 11 Refill(s), Pharmacy: [facility] #[id number], Controlled diabetes mellitus with hyperglycemia Type 2 diabetes mellitus with hemoglobin A1c goal of less than 7.5%... Start: 06-02-2022 See Instructions , One touch ultra blue test strips #60 pt to test twice daily., # 1 EA, 11 Refill(s), Pharmacy: [facility] #[id number], Controlled diabetes mellitus with hyperglycemia Type 2 diabetes mellitus with hemoglobin A1c goal of less than 7.5%, 165... Start: 06-02-2022 See Instructions , One touch Delica Lancet 33g, 1 box of 100, testing 2 times daily, # 1 EA, 11 Refill(s), Pharmacy: [facility] #[id number], Controlled diabetes mellitus with hyperglycemia Type 2 diabetes mellitus with hemoglobin A1c goal of less than 7.5%... Start: 06-02-2022 See Instructions , One touch ultra blue test strips #60 pt to test twice daily., # 1 EA, 11 Refill(s), Pharmacy: [facility] #[id number], Controlled diabetes mellitus with hyperglycemia Type 2 diabetes mellitus with hemoglobin A1c goal of less than 7.5%, 165... Start: 06-02-2022 See Instructions , One touch Delica Lancet 33g, 1 box of 100, testing 2 times daily, # 1 EA, 11 Refill(s), Pharmacy: [facility] #[id number], Controlled diabetes mellitus with hyperglycemia Type 2 diabetes mellitus with hemoglobin A1c goal of less than 7.5%... Start: 06-02-2022 See Instructions , One touch ultra blue test strips #60 pt to test twice daily., # 1 EA, 11 Refill(s), Pharmacy: [facility] #[id number], Controlled diabetes mellitus with hyperglycemia Type 2 diabetes mellitus with hemoglobin A1c goal of less than 7.5%, 165.1, cm, 06/02/22 13:23:00 EDT, Height, 85.3, kg, 06/02/22 13:23:00 EDT, Dosing Weight Start: 06-02-2022 See Instructions , One touch Delica Lancet 33g, 1 box of 100, testing 2 times daily, # 1 EA, 11 Refill(s), Pharmacy: [facility] #[id number], Controlled diabetes mellitus with hyperglycemia Type 2 diabetes mellitus with hemoglobin A1c goal of less than 7.5%, 165.1, cm, 06/02/22 13:23:00 EDT, Height, 85.3, kg, 06/02/22 13:23:00 EDT, Dosing Weight Start: 06-02-2022 See Instructions , One touch ultra blue test strips #60 pt to test twice daily., # 1 EA, 11 Refill(s), Pharmacy: [facility] #[id number], Controlled diabetes mellitus with hyperglycemia Type 2 diabetes mellitus with hemoglobin A1c goal of less than 7.5%, 165.1, cm, 06/02/22 13:23:00 EDT, Height, 85.3, kg, 06/02/22 13:23:00 EDT, Dosing Weight Start: 06-02-2022 See Instructions , One touch Delica Lancet 33g, 1 box of 100, testing 2 times daily, # 1 EA, 11 Refill(s), Pharmacy: [facility] #[id number], Controlled diabetes mellitus with hyperglycemia Type 2 diabetes mellitus with hemoglobin A1c goal of less than 7.5%, 165.1, cm, 06/02/22 13:23:00 EDT, Height, 85.3, kg, 06/02/22 13:23:00 EDT, Dosing Weight Start: 06-02-2022 See Instructions , One touch ultra blue test strips #60 pt to test twice daily., # 1 EA, 11 Refill(s), Pharmacy: [facility] #[id number], Controlled diabetes mellitus with hyperglycemia Type 2 diabetes mellitus with hemoglobin A1c goal of less than 7.5%, 165.1, cm, 06/02/22 13:23:00 EDT, Height, 85.3, kg, 06/02/22 13:23:00 EDT, Dosing Weight Start: 06-02-2022 See Instructions , One touch Delica Lancet 33g, 1 box of 100, testing 2 times daily, # 1 EA, 11 Refill(s), Pharmacy: [facility] #[id number], Controlled diabetes mellitus with hyperglycemia Type 2 diabetes mellitus with hemoglobin A1c goal of less than 7.5%, 165.1, cm, 06/02/22 13:23:00 EDT, Height, 85.3, kg, 06/02/22 13:23:00 EDT, Dosing Weight Start: 06-02-2022 See Instructions , One touch ultra blue test strips #60 pt to test twice daily., # 1 EA, 11 Refill(s), Pharmacy: [facility] #[id number], Controlled diabetes mellitus with hyperglycemia Type 2 diabetes mellitus with hemoglobin A1c goal of less than 7.5%, 165.1, cm, 06/02/22 13:23:00 EDT, Height, 85.3, kg, 06/02/22 13:23:00 EDT, Dosing Weight Start: 06-02-2022 See Instructions , One touch Delica Lancet 33g, 1 box of 100, testing 2 times daily, # 1 EA, 11 Refill(s), Pharmacy: [facility] #[id number], Controlled diabetes mellitus with hyperglycemia Type 2 diabetes mellitus with hemoglobin A1c goal of less than 7.5%, 165.1, cm, 06/02/22 13:23:00 EDT, Height, 85.3, kg, 06/02/22 13:23:00 EDT, Dosing Weight Start: 06-02-2022 See Instructions , One touch ultra blue test strips #60 pt to test twice daily., # 1 EA, 11 Refill(s), Pharmacy: [facility] #[id number], Controlled diabetes mellitus with hyperglycemia Type 2 diabetes mellitus with hemoglobin A1c goal of less than 7.5%, 165.1, cm, 06/02/22 13:23:00 EDT, Height, 85.3, kg, 06/02/22 13:23:00 EDT, Dosing Weight Start: 06-02-2022 See Instructions , One touch Delica Lancet 33g, 1 box of 100, testing 2 times daily, # 1 EA, 11 Refill(s), Pharmacy: [facility] #[id number], Controlled diabetes mellitus with hyperglycemia Type 2 diabetes mellitus with hemoglobin A1c goal of less than 7.5%, 165.1, cm, 06/02/22 13:23:00 EDT, Height, 85.3, kg, 06/02/22 13:23:00 EDT, Dosing Weight Start: 06-02-2022 See Instructions , One touch ultra blue test strips #60 pt to test twice daily., # 1 EA, 11 Refill(s), Pharmacy: [facility] #[id number], Controlled diabetes mellitus with hyperglycemia Type 2 diabetes mellitus with hemoglobin A1c goal of less than 7.5%, 165.1, cm, 06/02/22 13:23:00 EDT, Height, 85.3, kg, 06/02/22 13:23:00 EDT, Dosing Weight Start: 06-02-2022 See Instructions , One touch Delica Lancet 33g, 1 box of 100, testing 2 times daily, # 1 EA, 11 Refill(s), Pharmacy: [facility] #[id number], Controlled diabetes mellitus with hyperglycemia Type 2 diabetes mellitus with hemoglobin A1c goal of less than 7.5%, 165.1, cm, 06/02/22 13:23:00 EDT, Height, 85.3, kg, 06/02/22 13:23:00 EDT, Dosing Weight Start: 06-02-2022 See Instructions , One touch ultra blue test strips #60 pt to test twice daily., # 1 EA, 11 Refill(s), Pharmacy: [facility] #[id number], Controlled diabetes mellitus with hyperglycemia Type 2 diabetes mellitus with hemoglobin A1c goal of less than 7.5%, 165.1, cm, 06/02/22 13:23:00 EDT, Height, 85.3, kg, 06/02/22 13:23:00 EDT, Dosing Weight Start: 06-02-2022 See Instructions , One touch Delica Lancet 33g, 1 box of 100, testing 2 times daily, # 1 EA, 11 Refill(s), Pharmacy: [facility], Controlled diabetes mellitus with hyperglycemia Type 2 diabetes mellitus with hemoglobin A1c goal of less than 7.5%, 165.1, cm, 06/02/22 13:23:00 EDT, Height, 85.3, kg, 06/02/22 13:23:00 EDT, Dosing Weight Start: 06-02-2022 See Instructions , One touch ultra blue test strips #60 pt to test twice daily., # 1 EA, 11 Refill(s), Pharmacy: [facility] #[id number], Controlled diabetes mellitus with hyperglycemia Type 2 diabetes mellitus with hemoglobin A1c goal of less than 7.5%, 165.1, cm, 06/02/22 13:23:00 EDT, Height, 85.3, kg, 06/02/22 13:23:00 EDT, Dosing Weight Start: 06-02-2022 See Instructions , One touch Delica Lancet 33g, 1 box of 100, testing 2 times daily, # 1 EA, 11 Refill(s), Pharmacy: [facility] #[id number], Controlled diabetes mellitus with hyperglycemia Type 2 diabetes mellitus with hemoglobin A1c goal of less than 7.5%, 165.1, cm, 06/02/22 13:23:00 EDT, Height, 85.3, kg, 06/02/22 13:23:00 EDT, Dosing Weight Start: 06-02-2022 See Instructions , One touch ultra blue test strips #60 pt to test twice daily., # 1 EA, 11 Refill(s), Pharmacy: [facility] #[id number], Controlled diabetes mellitus with hyperglycemia Type 2 diabetes mellitus with hemoglobin A1c goal of less than 7.5%, 165.1, cm, 06/02/22 13:23:00 EDT, Height, 85.3, kg, 06/02/22 13:23:00 EDT, Dosing Weight Start: 06-02-2022 See Instructions , One touch Delica Lancet 33g, 1 box of 100, testing 2 times daily, # 1 EA, 11 Refill(s), Pharmacy: [facility] #[id number], Controlled diabetes mellitus with hyperglycemia Type 2 diabetes mellitus with hemoglobin A1c goal of less than 7.5%, 165.1, cm, 06/02/22 13:23:00 EDT, Height, 85.3, kg, 06/02/22 13:23:00 EDT, Dosing Weight Start: 06-02-2022 See Instructions , One touch ultra blue test strips #60 pt to test twice daily., # 1 EA, 11 Refill(s), Pharmacy: [facility], Controlled diabetes mellitus with hyperglycemia Type 2 diabetes mellitus with hemoglobin A1c goal of less than 7.5%, 160, cm, 03/02/23 8:17:00 EST, Height, 87.7, kg, 03/02/23 8:17:00 EST, Dosing Weight Start: 03-13-2023 See Instructions , One touch Delica Lancet 33g, 1 box of 100, testing 2 times daily, # 1 EA, 11 Refill(s), Pharmacy: [facility] #[id number], Controlled diabetes mellitus with hyperglycemia Type 2 diabetes mellitus with hemoglobin A1c goal of less than 7.5%, 165.1, cm, 06/02/22 13:23:00 EDT, Height, 85.3, kg, 06/02/22 13:23:00 EDT, Dosing Weight Start: 06-02-2022 See Instructions , One touch ultra blue test strips #60 pt to test twice daily., # 1 EA, 11 Refill(s), Pharmacy: [facility], Controlled diabetes mellitus with hyperglycemia Type 2 diabetes mellitus with hemoglobin A1c goal of less than 7.5%, 160, cm, 03/02/23 8:17:00 EST, Height, 87.7, kg, 03/02/23 8:17:00 EST, Dosing Weight Start: 03-13-2023 See Instructions , One touch Delica Lancet 33g, 1 box of 100, testing 2 times daily, # 1 EA, 11 Refill(s), [facility]acy: [facility] #[id number], Controlled diabetes mellitus with hyperglycemia Type 2 diabetes mellitus with hemoglobin A1c goal of less than 7.5%, 165.1, cm, 06/02/22 13:23:00 EDT, Height, 85.3, kg, 06/02/22 13:23:00 EDT, Dosing Weight Start: 06-02-2022 See Instructions , One touch ultra blue test strips #60 pt to test twice daily., # 1 EA, 11 Refill(s), Pharmacy: [facility], Controlled diabetes mellitus with hyperglycemia Type 2 diabetes mellitus with hemoglobin A1c goal of less than 7.5%, 160, cm, 03/02/23 8:17:00 EST, Height, 87.7, kg, 03/02/23 8:17:00 EST, Dosing Weight Start: 03-13-2023 See Instructions , One touch Delica Lancet 33g, 1 box of 100, testing 2 times daily, # 1 EA, 11 Refill(s), Pharmacy: [facility] #[id number], Controlled diabetes mellitus with hyperglycemia Type 2 diabetes mellitus with hemoglobin A1c goal of less than 7.5%, 165.1, cm, 06/02/22 13:23:00 EDT, Height, 85.3, kg, 06/02/22 13:23:00 EDT, Dosing Weight Start: 06-02-2022 See Instructions , One touch ultra blue test strips #60 pt to test twice daily., # 1 EA, 11 Refill(s), Pharmacy: [facility], Controlled diabetes mellitus with hyperglycemia Type 2 diabetes mellitus with hemoglobin A1c goal of less than 7.5%, 160, cm, 03/02/23 8:17:00 EST, Height, 87.7, kg, 03/02/23 8:17:00 EST, Dosing Weight Start: 03-13-2023 See Instructions , One touch Delica Lancet 33g, 1 box of 100, testing 2 times daily, # 1 EA, 11 Refill(s), Pharmacy: [facility] #[id number], Controlled diabetes mellitus with hyperglycemia Type 2 diabetes mellitus with hemoglobin A1c goal of less than 7.5%, 165.1, cm, 06/02/22 13:23:00 EDT, Height, 85.3, kg, 06/02/22 13:23:00 EDT, Dosing Weight Start: 06-02-2022 See Instructions , One touch ultra blue test strips #60 pt to test twice daily., # 1 EA, 11 Refill(s), Pharmacy: [facility], Controlled diabetes mellitus with hyperglycemia Type 2 diabetes mellitus with hemoglobin A1c goal of less than 7.5%, 160, cm, 03/02/23 8:17:00 EST, Height, 87.7, kg, 03/02/23 8:17:00 EST, Dosing Weight Start: 03-13-2023 See Instructions , One touch Delica Lancet 33g, 1 box of 100, testing 2 times daily, # 1 EA, 11 Refill(s), Pharmacy: [facility] #[id number], Controlled diabetes mellitus with hyperglycemia Type 2 diabetes mellitus with hemoglobin A1c goal of less than 7.5%, 165.1, cm, 06/02/22 13:23:00 EDT, Height, 85.3, kg, 06/02/22 13:23:00 EDT, Dosing Weight Start: 06-02-2022 See Instructions , One touch ultra blue test strips #60 pt to test twice daily., # 1 EA, 11 Refill(s), Pharmacy: [facility], Controlled diabetes mellitus with hyperglycemia Type 2 diabetes mellitus with hemoglobin A1c goal of less than 7.5%, 160, cm, 03/02/23 8:17:00 EST, Height, 87.7, kg, 03/02/23 8:17:00 EST, Dosing Weight Start: 03-13-2023 See Instructions , One touch Delica Lancet 33g, 1 box of 100, testing 2 times daily, # 1 EA, 11 Refill(s), Pharmacy: [facility] #[id number], Controlled diabetes mellitus with hyperglycemia Type 2 diabetes mellitus with hemoglobin A1c goal of less than 7.5%, 165.1, cm, 06/02/22 13:23:00 EDT, Height, 85.3, kg, 06/02/22 13:23:00 EDT, Dosing Weight Start: 06-02-2022 See Instructions , One touch ultra blue test strips #60 pt to test twice daily., # 1 EA, 11 Refill(s), Pharmacy: [facility], Controlled diabetes mellitus with hyperglycemia Type 2 diabetes mellitus with hemoglobin A1c goal of less than 7.5%, 160, cm, 03/02/23 8:17:00 EST, Height, 87.7, kg, 03/02/23 8:17:00 EST, Dosing Weight Start: 03-13-2023 See Instructions , One touch Delica Lancet 33g, 1 box of 100, testing 2 times daily, # 1 EA, 11 Refill(s), Pharmacy: [facility] #[id number], Controlled diabetes mellitus with hyperglycemia Type 2 diabetes mellitus with hemoglobin A1c goal of less than 7.5%, 165.1, cm, 06/02/22 13:23:00 EDT, Height, 85.3, kg, 06/02/22 13:23:00 EDT, Dosing Weight Start: 06-02-2022 See Instructions , One touch ultra blue test strips #60 pt to test twice daily., # 1 EA, 11 Refill(s), Pharmacy: [facility], Controlled diabetes mellitus with hyperglycemia Type 2 diabetes mellitus with hemoglobin A1c goal of less than 7.5%, 160, cm, 03/02/23 8:17:00 EST, Height, 87.7, kg, 03/02/23 8:17:00 EST, Dosing Weight Start: 03-13-2023 See Instructions , One touch Delica Lancet 33g, 1 box of 100, testing 2 times daily, # 1 EA, 11 Refill(s), [facility]acy: [facility] #[id number], Controlled diabetes mellitus with hyperglycemia Type 2 diabetes mellitus with hemoglobin A1c goal of less than 7.5%, 165.1, cm, 06/02/22 13:23:00 EDT, Height, 85.3, kg, 06/02/22 13:23:00 EDT, Dosing Weight Start: 06-02-2022 See Instructions , One touch ultra blue test strips #60 pt to test twice daily., # 1 EA, 11 Refill(s), Pharmacy: [facility], Controlled diabetes mellitus with hyperglycemia Type 2 diabetes mellitus with hemoglobin A1c goal of less than 7.5%, 160, cm, 03/02/23 8:17:00 EST, Height, 87.7, kg, 03/02/23 8:17:00 EST, Dosing Weight Start: 03-13-2023 See Instructions , One touch Delica Lancet 33g, 1 box of 100, testing 2 times daily, # 1 EA, 11 Refill(s), Pharmacy: [facility] #[id number], Controlled diabetes mellitus with hyperglycemia Type 2 diabetes mellitus with hemoglobin A1c goal of less than 7.5%, 165.1, cm, 06/02/22 13:23:00 EDT, Height, 85.3, kg, 06/02/22 13:23:00 EDT, Dosing Weight Start: 06-02-2022 See Instructions , One touch ultra blue test strips #60 pt to test twice daily., # 1 EA, 11 Refill(s), Pharmacy: [facility], Controlled diabetes mellitus with hyperglycemia Type 2 diabetes mellitus with hemoglobin A1c goal of less than 7.5%, 160, cm, 03/02/23 8:17:00 EST, Height, 87.7, kg, 03/02/23 8:17:00 EST, Dosing Weight Start: 03-13-2023 See Instructions , One touch Delica Lancet 33g, 1 box of 100, testing 2 times daily, # 1 EA, 11 Refill(s), Pharmacy: [facility], Controlled diabetes mellitus with hyperglycemia Type 2 diabetes mellitus with hemoglobin A1c goal of less than 7.5%, 165, cm, 06/14/23 13:33:00 EDT, Height, 181, kg, 06/14/23 13:33:00 EDT, Dosing Weight Start: 06-26-2023 See Instructions , One touch ultra blue test strips #60 pt to test twice daily., # 1 EA, 11 Refill(s), Pharmacy: [facility], Controlled diabetes mellitus with hyperglycemia Type 2 diabetes mellitus with hemoglobin A1c goal of less than 7.5%, 160, cm, 03/02/23 8:17:00 EST, Height, 87.7, kg, 03/02/23 8:17:00 EST, Dosing Weight Start: 03-13-2023 See Instructions , One touch Delica Lancet 33g, 1 box of 100, testing 2 times daily, # 1 EA, 11 Refill(s), Pharmacy: [facility], Controlled diabetes mellitus with hyperglycemia Type 2 diabetes mellitus with hemoglobin A1c goal of less than 7.5%, 165, cm, 06/14/23 13:33:00 EDT, Height, 181, kg, 06/14/23 13:33:00 EDT, Dosing Weight Start: 06-26-2023 Goals Date Patient Goal Desired Activity /State Functional Status Date Assessment Result Facility 06-25-2024 Functional status [facility] Work Phone: 03-02-2024 Functional status Ambulates;[facility] Work Phone: 06-11-2023 Functional Status Mobile [facility] Status Mod I [facility] Functional Status Non-Slip footw ear, Room check performed [facility] 06-11-2023 Functional Status [facility] 06-11-2023 Functional Status [facility] 06-11-2023 Functional Status [facility] 06-10-2023 Functional Status Up with assistance [facility] 06-10-2023 Functional Status [facility] 06-10-2023 Functional Status [facility] 06-10-2023 Functional Status 7am-7pm [facility] 06-10-2023 Functional Status [facility] 06-10-2023 Functional Status [facility] 06-09-2023 Functional Status padded oxygen tubing [facility] 06-09-2023 Functional Status [facility] 06-09-2023 Functional Status Dinner Percent 100 [facility] 06-09-2023 Functional Status [facility] 06-09-2023 Functional Status [facility] 06-09-2023 Functional Status Feeding Assistance Inde pendent [facility] 06-09-2023 Functional Status [facility] 06-08-2023 Functional Status [facility] 06-08-2023 Functional Status Maximum assistance [facility] 06-08-2023 Functional Status Standard Safet y ID band on, Allergy Band on, Call device within reach, Bed in low position, Wheels locked [facility] 06-08-2023 Functional Status Identified as high risk, Room located near nursing station [facility] 05-25-2023 Functional Status Independent [facility] 05-25-2023 Functional Status Standard Safet y ID band on, Allergy Band on, Call device within reach, Bed in low position, Wheels locked, Safety level maintained [facility] 05-08-2023 Functional Status Supervised [facility] 05-08-2023 Functional Status Lunch Percent 100 [facility] 05-08-2023 Functional Status Identified as high risk, Fall ID band on, Door open, Non-Slip footwear [facility] 05-08-2023 Functional Status [facility] 05-07-2023 Functional Status [facility] 05-07-2023 Functional Status Demonstrates C orrect Call Light Use Yes [facility] 05-07-2023 Functional Status [facility] 05-07-2023 Functional Status Mobile home [facility] 05-07-2023 Functional Status [facility] 04-26-2023 Functional status Activity Ability Indepe [facility] Work Phone: 04-26-2023 Functional status Ambulates;Chair [facility] Work Phone: 03-09-2023 Functional status Patient Activity Ambula [facility] Work Phone: 03-09-2023 Functional status Activity Abili ty With Assist of 1 [facility] Work Phone: 03-08-2023 Functional status Standard Walker [facility] Work Phone: 02-15-2023 Functional status Bedpan [facility] Work Phone: 11-18-2022 Functional status Activity Abili ty Standby Assist [facility] Work Phone: 11-18-2022 Functional status Patient Activity Ambula [facility] Work Phone: 05-25-2022 Functional status Activity Ability Indepe [facility] Work Phone: 04-13-2022 Functional status Chair [facility] Work Phone: 03-16-2022 Functional status Ambulates;Up ad renita;Shawna ir [facility] Work Phone: 12-16-2021 Functional status Ambulates [facility] Work Phone: Mental Status Date Assessment Result Facility 06-25-2024 Cognitive function Voice/Name [facility] Work Phone: 03-02-2024 Cognitive function Voice/Name [facility] Work Phone: 06-11-2023 Mental Status Oriented x 4, Follows simple commands [facility] 06-10-2023 Mental Status [facility] 06-10-2023 Mental Status [facility] 06-09-2023 Mental Status [facility] 06-08-2023 Mental Status Orientation Oriented x 4 [facility] 06-08-2023 Mental Status [facility] 05-25-2023 Mental Status Orientation Oriented x 4 [facility] 05-25-2023 Mental Status [facility] 05-08-2023 Mental Status Oriented x 4 [facility] 05-07-2023 Mental Status [facility] 05-07-2023 Mental Status [facility] 04-26-2023 Cognitive function Voice/Name [facility] Work Phone: 04-02-2023 Cognitive function Voice/Name [facility] Work Phone: 03-09-2023 Cognitive function Voice/Name [facility] Work Phone: 02-14-2023 Cognitive function Voice/Name;To uch/Shaking;Light Pain;Deep Pain [facility] Work Phone: 11-18-2022 Cognitive function Voice/Name [facility] Work Phone: 05-26-2022 Cognitive function Voice/Name [facility] Work Phone: 04-13-2022 Cognitive function Voice/Name [facility] Work Phone: 03-14-2022 Cognitive function Voice/Name [facility] Work Phone: 12-16-2021 Cognitive function Voice/Name [facility] Work Phone: 12-08-2021 Cognitive function Level Of Cons ciousness Awake;Alert;Appropriate;Follow s Commands [facility] Work Phone: Clinical Notes 04-23-2021 to 06-25-2024 Note Date & Type Note Facility 06-25-2024 Consult note [facility] 06-25-2024 Consult note Note Date/Time June 25, 2024 5:29pm [facility] Medical Records Department [address] [place] [address] Counseling Note - Pharmacy 06/25/24 1448 MR#: [id number] Acct: [id number] Name: BEULAH BRIGHT Rep #:[id number] 4 : 1940 84 From: Rena Song PCP: Dr. Yuridia Hernandez MD Status:ADM I N Y Location: [place] [address] Pharmacy [facility] Service has performed discharge medication reconciliation [...] understanding of their dischargemedications. Patient counseled by pharmacy picking techLalit. Medications at Discharge Home Medications atorvastatin 80 [...] 18 mcg inhalation DAILY SOB 05/02/21 vitamins A,C,Q-liup-pkdhxs 4,296 mcg-226 mg-90 mg capsule (PreserVision AREDS) [...] Signature (if applicable): Date CC: ~ Signed [facility] Work Phone: 1(935) 864-359404-16-2025 Discharge summary [facility] Medical Records Department [facility] [place] [address] Discharge Summary 06/25/24 1349 MR#: [id number] Acct: [id number] Name: BEULAH BRIGHT Rep #:[id number] : 1940 84 From: Sarai Alcantara MD PCP: Dr. Yuridia Hernandez MD Status:ADM I N Location: [place] [address] Providers Date of Admission: 06/23/24 Date of [...] (1,000 unit) capsule 25 mcg PO DAILY ewrwyql68/21/22 ipratropium 0.5 mg-albuterol 3 mg (2.5 mg base)/3 mL nebulization soln 3 ml inhalation 4X/DAY PRN sob 05/02/21 liothyronine 25 mcg tablet 25 mcg PO DAILY THYROID 05/02/21 tiotropium bromide 18 mcg capsule with inhalation device (Spiriva with HandiHaler) 18 mcg inhalation DAILY SOB 05/02/21 vitamins A,C,F-suiq-euezby 4,296 mcg-226 mg-90 mg capsule (PreserVision AREDS) [...] (Auto) 80.9 H, Lymph % (Auto) 12.3 L,Tompkins % (Auto) 6.1, Eos % (Auto) 0.3, [...] 25 mcg PO DAILY PreserVision AREDS 14,320-226-200 jarv-cr-xxhs Capsule 1 cap PO BID Jardiance 10 [...] Self Care Charges/Coding Visit Charges Inpatient E&M: 33241 Disch Hosp >30min 06/25/24 1640 Cosigner Signature (if applicable): CC: Dr. Sarai Alcantara MD; Dr. Yuridia Hernandez MD~ Signed [facility]04-16-2025 Discharge summary Author [facility] Note Date/Time June 25, 2024 1:4 9pm [facility] Medical Records Department [address] [place] [address] Instructions for Home/Discharge Instructions 06/25/24 1348 MR#: [id number] Acct: [id number] Name: BEULAH BRIGHT Rep #:[id number] : 1940 84 From: Sarai Alcantara [...] 25 mcg PO DAILY PreserVision AREDS 14320-226-200 pdef-xt-csfh Capsule 1 cap PO BID Jardiance 10 [...] MD; Dr. Yuridia Hernandez MD ~ Signed [facility] Work Phone: 1(352) 290-258604-16-2025 Discharge summary Author Sarai Alcantara [facility] Note Date/Time June 25, 2024 4:4 0pm [facility] Medical Records Department [address] [place] [address] Discharge Summary 06/25/24 1349 MR#: [id number] Acct: [id number] Name: BEULAH BRIGHT Rep #:[id number] : 1940 84 From: Sarai Alcantara MD PCP: Dr. Yuridia Hernandez MD Status:ADM I N Location: [place] [address] Providers Date of Admission: 06/23/24 Date of [...] (1,000 unit) capsule 25 mcg PO DAILY oueegoe45/21/22 ipratropium 0.5 mg-albuterol 3 mg (2.5 mg base)/3 mL nebulization soln 3 ml inhalation 4X/DAY PRN sob 05/02/21 liothyronine 25 mcg tablet 25 mcg PO DAILY THYROID 05/02/21 tiotropium bromide 18 mcg capsule with inhalation device (Spiriva with HandiHaler) 18 mcg inhalation DAILY SOB 05/02/21 vitamins A,C,Z-wjzg-jqrlwv 4,296 mcg-226 mg-90 mg capsule (PreserVision AREDS) [...] (Auto) 80.9 H, Lymph % (Auto) 12.3 L,[place]pkins % (Auto) 6.1, Eos % (Auto) 0.3, [...] 25 mcg PO DAILY PreserVision AREDS 14320-226-200 zace-fj-ncgl Capsule 1 cap PO BID Jardiance 10 [...] Self Care Charges/Coding Visit Charges Inpatient E&M: 48693 Disch Hosp >30min 06/25/24 1640 <Electronically signed by Sarai Alcantara MD> Cosigner Signature (if applicable): CC: Dr. Sarai Alcantara MD; Dr. Yuridia Hernandez MD~ Signed [facility] Work Phone: 1(871) 550-129504-16-2025 Discharge summary [facility] Medical Records Department [address] [place] [address] Instructions for Home/Discharge Instructions 06/25/24 1348 MR#: [id number] Acct: [id number] Name: BEULAH BRIGHT Javier Rep #:[id number] 8 : 1940 84 From: Sarai Alcantara [...] 25 mcg PO DAILY PreserVision AREDS 14,320-226-200 ctka-hb-pzwy Capsule 1 cap PO BID Jardiance 10 [...] MD; Dr. Yuridia Hernandez MD ~ Signed [facility]04-16-2025 [facility] Progress note Author [facility] Note Date/Time June 24, 2024 2:1 7pm [facility] Medical Records Department [address] [place] [address] Progress Note 06/24/24 1359 MR#: [id number] Acct: [id number] Name: BEULAH BRIGHT Rep #:[id number] : 1940 84 From: Sarai Alcantara MD PCP: Dr. Yuridia Hernandez MD Status:ADM I N Location: [place] [address] Subjective Subjective Patient seen and examined. He [...] 71.4 H, Lymph % (Auto) 17.7 L, [place] % (Auto) 6.6, Eos % (Auto) 3.5, [...] 85.0 H, Lymph % (Auto) 13.4 L, [place] % (Auto) 1.3, Eos % (Auto) 0.0, [...] No acute abnormality is seen. Reading Location: [place] [address] Physical Exam Const alert, oriented x3, no [...] prophylaxis: SCDs Charges/Coding Visit Charges Inpatient E&M: 72923 Subs Hosp L2 06/24/24 1417 <Electronically signed by Sarai Alcantara MD> Sarai Alcantara MD Cosigner Signature (if applicable): CC: ~ Signed [facility] Work Phone: 1(956) 338-309304-15-2025 Progress note [facility] Medical Records Department [address] [place] [address] Progress Note 06/24/24 1359 MR#: [id number] Acct: [id number] Name: BEULAH BRIGHT Rep #:[id number] : 1940 84 From: Sarai Alcantara MD PCP: Dr. Yuridia Hernandez MD Status:ADM I N Location: [place] [address] Subjective Subjective Patient seen and examined. He [...] 71.4 H, Lymph % (Auto) 17.7 L, [place] % (Auto) 6.6, Eos % (Auto) 3.5, [...] 85.0 H, Lymph % (Auto) 13.4 L, [place] % (Auto) 1.3, Eos % (Auto) 0.0, [...] No acute abnormality is seen. Reading Location: [place] [address] Physical Exam Const alert, oriented x3, no [...] prophylaxis: SCDs Charges/Coding Visit Charges Inpatient E&M: 59267 Subs Hosp L2 06/24/24 1417 Sarai Alcantara MD Cosigner Signature (if applicable): CC: ~ Signed [facility]04-15-2025 Discharge summary Author Delia Tai [facility] Note Date/Time June 24, 2024 8:2 5am [facility] Medical Records Department [address] [place] [address] Emergency Department Summary 06/23/24 MR#: [id number] Acct: [id number] Name: BEULAH BRIGHT Rep #:[id number] 2 : 1940 84 From: Delia MCKEON PCP: Dr. Yuridia Hernandez MD Status:ADM I N Location: [address] <MIKE Calhoun - Last Filed: 06/23/24 [...] bleed. He is not on blood thinners. [facility] <MIKE Calhoun - Last Filed: 06/23/24 18:10> [facility] Medical History Anemia Acute dyspnea Obesity (BMI [...] catheterization (LHC) (~03/15/22) Atherosclerotic heart disease of [place] coronary artery without angina pectoris Aortic valve [...] with inhalation device (Spiriva with HandiHaler) vitamins A,C,V-jmsw-tjyunj 4,296 1 cap PO BID vitamin 12/13/21 [...] <MIKE Calhoun - Last Filed: 06/23/24 18:10> [facility] Narrative Medical decision making narrative: Differential includes [...] 71.4 H Lymph % (Auto) 17.7 L [place] % (Auto) 6.6 Eos % (Auto) 3.5 [...] No acute abnormality is seen. Reading Location: [place] [address] ED attending interpretation of 1-view chest x-ray shows normal heart size, no acute infiltrate, edema, or effusion. EKG Initial EKG: Attestation: I personally reviewed and interpreted this EKG as follows: Comments: Sinus rhythm with first-degree AV block at [address] changes, no STEMI <Dr. Eric Lester MD - Last Filed: 06/23/24 15:51> [facility] Lab Data Labs: Laboratory Results - [...] 71.4 H Lymph % (Auto) 17.7 L [place] % (Auto) 6.6 Eos % (Auto) 3.5 [...] No acute abnormality is seen. Reading Location: [place] [address] Treatment and Re-Evaluation Comments:: I have personally [...] your Primary Care Provider. Call [facility] ([phone]) or report to the closest Emergency Room. Call 911 if necessary. 06/23/24 1810 <Electronically signed by Delia MCKEON> Cosigner Signature (if applicable): 06/24/24 0825 <Electronically signed by Eric Lester MD> CC: Dr. Yuridia Hernandez MD ~ Signed [facility] Work Phone: 1(823) 767-737304-15-2025 Discharge summary [facility] Medical Records Department [address] [place] [address] Emergency Department Summary 06/23/24 MR#: [id number] Acct: [id number] Name: BEULAH BRIGHT Rep #:[id number] : 1940 84 From: Delia MCKEON PCP: Dr. Yuridia Hernandez MD Status:ADM I N Location: [place] [address] HPI History of Present Illness Chief Complaint: [...] GI bleed.He is not on blood thinners. [facility] Medical History Anemia Acute dyspnea Obesity [...] catheterization (LHC) (~03/15/22) Atherosclerotic heart disease of [place] coronary artery without angina pectoris Aortic valve [...] with inhalation device (Spiriva with HandiHaler) vitamins A,C,H-awbb-cfyoxq 4,296 1 cap PO BID vitamin 12/13/21 [...] 71.4 H Lymph % (Auto) 17.7 L [place] % (Auto) 6.6 Eos % (Auto) 3.5 [...] No acute abnormality is seen. Reading Location: [place] [address] ED attending interpretation of 1-view chest x-ray [...] 71.4 H Lymph % (Auto) 17.7 L [place] % (Auto) 6.6 Eos % (Auto) 3.5 [...] No acute abnormality is seen. Reading Location: [place] [address] Treatment and Re-Evaluation Comments:: I have personally [...] your Primary Care Provider. Call [facility] ([phone]) or report to the closest Emergency Room. Call 911 if necessary. 06/23/24 1810 Cosigner Signature (if applicable): 06/24/24 5036 CC: Dr. Yuridia Hernandez MD ~ Signed [facility]04-14-2025 History and physical note Author Tracy Angel [facility] Note Date/Time June 23, 2024 5:5 4pm [facility] Medical Records Department [address] [place] [address] H&P Exam - Hospitalist 06/23/24 1737 MR#: [id number] Acct: [id number] Name: BEULAH BRIGHT Rep #:[id number] : 1940 84 From: Tracy Angel MD PCP: Dr. 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 Charges/Coding Visit Charges Inpatient E&M: 79865 Init Hosp L3 Procedures Hospitalists Procedures: 31116 Advncd Care Plan 30 Min 06/23/24 1754 <Electronically signed by Tracy Angel MD> Cosigner Signature (if applicable): CC: Dr. Tracy Angel MD; Dr. Yuridia Hernandez MD~ Signed [facility] Work Phone: 1(150) 664-657204-14-2025 History and physical note [facility] Medical Records Department [address] [place] [address] H&P Exam - Hospitalist 06/23/24 1734 MR#: [id number] Acct: [id number] Name: BEULAH BRIGHT Rep #:[id number] : 1940 84 From: Tracy Angel MD PCP: Dr. 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 Charges/Coding Visit Charges Inpatient E&M: 43716 Init Hosp L3 Procedures Hospitalists Procedures: 20263 Advncd Care Plan 30 Min 06/23/24 5069 Cosigner Signature (if applicable): CC: Dr. Tracy Angel MD; Dr. Yuridia Hernandez MD~ Signed [facility]04-14-2025 Radiology Diagnostic study note [facility] Imaging Services [address] [place] [address] Chest 1 View (Portable) MR#: [id number] Acct: [id number] Name: BEULAH BRIGHT Rep #: [id number] 8 : 1940 M 84 From: Jomar La MD PCP: Dr. Yuridia Hernandez MD Status: PRE E R Study:Chest 1 View (Portable) Date of Exam: 06/23/24 Exam# [id number] Ordering Dr: Delia Thompson PROCEDURE: CHEST 1 [...] No acute abnormality is seen. Reading Location: [place] [address] CC: Dr. Yuridia eHrnandez MD; MIKE Calhoun ~ Network Security Officer: Signed [facility]03-19-2025 Evaluation note* Diagnosis Onset Date Resolution Status Admit Date Anemia chronic May 28 3:01pm Iron deficiency chronic May 3:01pm COPD exacerbation resolved June 102024 5:35pm Elevated troponin resolved June 102024 5:35pm Chronic anemia inactive June 5:35pm Chronic kidney disease inactive 2024 5:35pm History of gastric ulcer acute July 14, 2024 2:20pm [facility] Work Phone: 1(386) 856-514212-22-2024 [facility]12-19-2024 Evaluation note* Diagnosis Onset Date Resolution [...] 5:35pm COPD exacerbation chronic June 102024 5:35pm [facility] Work Phone: 1(200) 600-445311-25-2024 [facility]10-18-2024 [facility]09-30-2024 [facility] 11-20-2023 [facility]09-06-2024 [facility]04-17-2024 Discharge summary Author Dalton Forrest [facility] June 27, 2023 2:49pm Note Date/Time June 27, 2023 1:2 6pm [facility] Medical Records Department [address] [place] [address] Emergency Department Summary 06/27/23 MR#: [id number] Acct: [id number] Name: BEULAH BRIGHT Rep #:[id number] : 1940 83 From: Dalton Forrest [...] increased shortness of breath over his baseline. [facility] Medical History Acute and chronic respiratory failure with hypoxia Aortic valve stenosis, acquired Atherosclerotic heart disease of [place] coronary artery without angina pectoris CAD (coronary [...] (1,000 unit) capsule 25 mcg PO DAILY vmanbzm32/21/22 [History Last Taken 02/15/23] ipratropium 0.5 mg-albuterol [...] SOB 05/02/21 [History Last Taken 02/15/23] vitamins A,C,C-hkae-qshjlm 4,296 mcg-226 mg-90 mg capsule (PreserVision AREDS) [...] DAILY 06/27/23 [History Last Taken Unknown] vitamins A,C,L-hhuw-tvoqyj 4,296 mcg-226 mg-90 mg capsule (PreserVision AREDS) [...] % (Auto) 62.3 Lymph % (Auto) 23.7 Tompkins % (Auto) 9.6 Eos % (Auto) 3.8 [...] Clarity Clear Urine pH 5.0 Ur Specific [place] 1.015 Urine Protein 30 H Urine Glucose [...] 2 cap PO BID PreserVision AREDS 14,320-226-200 zaqq-lu-hxjc Capsule 1 cap PO BID Jardiance 10 [...] your Primary Care Provider. Call [facility] ([phone]) or report to the closest Emergency Room. Call 911 if necessary. 06/27/23 1449 <Electronically signed by Dalton Forrest MD> Cosigner Signature (if applicable): CC: Dr. Talya Nichols DO ~ Signed [facility] Work Phone: 1(316) 681-847704-01-2024 Hospital Discharge instructions Patient Education 06/11/2023 12:25:18 [...] symptoms. Follow these instructions at home: Take swjx-mkt-gzorsmq and prescription medicines only as told by your health care provider. Weigh yourself daily. Your target weight is lb ( kg). ?Call your health care provider if you gain more than lb ( kg) in a day, or more than lb ( kg) in one week. Eat a heart-healthy diet. Work with a diet and nutritionists (dietitian) to create an eatingplan that is best for you. Keep all follow-up visits as told by your health care provider. This is important. Where to find more information [employer]: www.heart.org Summary Follow the action [...] 04/07/2017 Document Revised: 02/08/2018 Document Reviewed: 04/07/2017 [employer] Patient Education 2020 [employer]. 06/11/2023 12:25:15 Heart Failure, Self Care, Kwwg-ic-Iwet Heart Failure, Self Care Heart failure is [...] when you have heart failure Medicines Take zvyh-fzo-uhbpnbr and prescription medicines only as told by [...] 06/11/2019 Document Revised: 06/10/2019 Document Reviewed: 06/11/2019 [employer] Patient Education 2020 [employer]. 06/11/2023 12:25:09 Heart Failure Eating Plan Heart [...] lifestyle and working with a diet and nutritionists (dietitian) to choose the right foods may [...] cheese. Low-sodium cottage cheese. Fats and oils [place], canola, soybean, flaxseed, or sunflower oil. Avocado. Sweets and desserts Apple sauce. Granola bars. Sugar-free pudding and gelatin. Frozen fruit bars. Seasoning and other foods Fresh and dried herbs. Lemon or robinson juice. Vinegar. Low-sodium ketchup. Salt- free marinades, [...] vegetables with sauce or seasonings. Creamed vegetables. Guyanese fries. Onion rings. Pickled vegetables and sauerkraut. [...] Salted nuts and seeds. Dairy Whole milk, ledx-bgj-tahy, and cream. Buttermilk. Processed cheese, cheese spreads, [...] 07/13/2017 Document Revised: 04/24/2019 Document Reviewed: 07/13/2017 [employer] Patient Education 2020 [employer] Follow Up Care 06/08/2023 19:34:17 With:TALYA NICHOLS DO Address: [address] [place] [address] [place] [address]- [phone] When: only if needed Comments:Please call the office to schedule a follow-up appointment. With:ROJAS AVILA MD Address: [address] [place], [place] [address] [address] [place] [address]- [phone] When:Within 2 Week(s) Comments:Call office within 2 weeks for appointment With:NAMRATA ESPINO MD Address: [address] [place] [address] [facility] [place] [address]- When:Within 2 Week(s) Comments:Please call office within 2 weeks for appointment [facility] 04-01-2024 Note Discharge Instructions Thank you for allowing [facility] to assist you with your healthcare needs. [...] You were transfused blood seen by a dinkey driver and started on IV diuretics (water pills). Please follow-up with your primary care doctor, we will have you follow-up with a dinkey driver for your aortic stenosis (narrow heart valve). Please follow-up with your established computer numerical control machinist. If you do not have an established computer numerical control machinist I will provide you with information for a computer numerical control machinist. Again please contact your primary care doctor soon as possible. Please seek medical assistance if your symptoms recur or worsen. Take care Follow Up Appointments Follow Up with TALYA NICHOLS DO When Only if needed Why: Please call the office to schedule a follow-up appointment. Where: [address] [facility] [place] [address]- [phone] Follow Up with ROJAS AVILA MD When In 2 weeks Why: Call office within 2 weeks for appointment Where: [address] [facility] [address] [place] [address]- [phone] Follow Up with NAMRATA ESPINO MD When In 2 weeks Why: Please call office within 2 weeks for appointment Where: [address] [facility] [place] [address]- The Following Activity and Diet Have Been [...] a day with a meal Pickup at [facility] Changed albuterol-ipratropium (albuterol-ipratropium 2.5 mg-0.5 mg/ 3 mL inhalation solution) 3 Milliliter Nebulized inhalation Four (4) times a day Duration: 30 Days INHALE 3ML VIA NEBULIZER 4 TIMES A DAY NEEDED FOR SHORTNESS OF BREATH OR WHEEZING Pickup at [facility] Changed empagliflozin (Jardiance 10 mg oral tablet) TAKE ONE TABLET BY MOUTH EVERY MORNING Changed furosemide (furosemide 40 mg oral tablet) 1 tab(s) by mouth Every day Pickup at [facility] Changed glimepiride (glimepiride 2 mg oral [...] Generic is making patient cough. Pickup at [facility] Unchanged atorvastatin (atorvastatin 80 mg [...] (2) times daily before meals Pharmacy Information [facility]: [address] [place] [address] [phone] What How Much When Why Comments Stop [...] symptoms. Follow these instructions at home: Take clzl-fai-ajibrds and prescription medicines only as told by your health care provider. Weigh yourself daily. Your target weight is lb ( kg). ? Call your health care provider if you gain more than lb ( kg) in a day, or more than lb ( kg) in one week. Eat a heart-healthy diet. Work with a diet and nutritionists (dietitian) to create an eatingplan that is best for you. Keep all follow-up visits as told by your health care provider. This is important. Where to find more information [place] [employer]: www.heart.org Summary Follow the action [...] Document Reviewed: 04/07/2017 Elsevier Patient Education 2020 [employer]. Heart Failure, Self Care Heart failure [...] when you have heart failure Medicines Take bmjw-otw-ieixhve and prescription medicines only as told by [...] 06/11/2019 Document Revised: 06/10/2019 Document Reviewed: 06/11/2019 Rambus Patient Education 2020 [employer]. Heart Failure Eating Plan Heart failure, also called congestive heart failure, occurs when your heart does not pump blood well enough to meet your body's needs for oxygen-rich blood. Heart failure is a long-term (chronic) condition. Living with heart failure can be challenging. However, following your health care provider'sinstructions about a healthy lifestyle and working with a diet and nutritionists (dietitian) to choose the right foods may [...] cheese. Low-sodium cottage cheese. Fats and oils [place], canola, soybean, flaxseed, or sunflower oil. Avocado. Sweets and desserts Apple sauce. Granola bars. Sugar-free pudding and gelatin. Frozen fruit bars. Seasoning and other foods Fresh and dried herbs. Lemon or robinson juice. Vinegar. Low-sodium ketchup. Salt- free marinades, [...] vegetables with sauce or seasonings. Creamed vegetables. Guyanese fries. Onion rings. Pickled vegetables and sauerkraut. [...] Salted nuts and seeds. Dairy Whole milk, udkl-cgc-zxfy, and cream. Buttermilk. Processed cheese, cheese spreads, [...] and bouillon cubes. Horseradish, ketchup, and mustard. Bayridge Hospitaltershire sauce. Teriyaki sauce, soy sauce (including reduced [...] 07/13/2017 Document Revised: 04/24/2019 Document Reviewed: 07/13/2017 Rambus Patient Education 2020 [employer]. Additional Information VACCINATE! IT SAVES LIVES! Members of the community who have not yet received the COVID-19 vaccine and would like to receive it can visit one of [facility] vaccine clinics. There are many vaccine clinic locations within the [facility]. For locations and available times, please visit [email or web address] It is important to note that some COVID mobile vaccine clinics are held outdoors and may be canceled in rainy or stormy conditions. To learn more about pediatric vaccinations (ages 5-11), we invite you to visit the [facility] webpage. https://www.[facility].org/pages/8244-Qctfg-Tzopnlltlsa-Pwjghopack-Zlnfx-Evb stions.htmlTo learn more about the COVID-19 vaccine, we invite you to visit the CDC website for a list of frequently asked questions.https://www.cdc.gov/coronavirus/2019-ncov/vaccines/faq.html [facility] Patient Portal Access Instructions: Stay connected with your healthcare team and access your personal medical information anytime with the [employer] Patient Portal. Please follow the directions below to create your [employer] account: 1.Access the email account you provided upon registration to the hospital/physician office.2.Look for an invitation email from [facility].3.Open the email and access the invitation link: AcceptInvitation to [employer] [employer].4.Fill in the required hollis to create your account. To access your account, visit [email or web address]. Click the blue button labeled Access Patient [...] who you will allowto register on the [facility] Patient Portal for access to your information. You can also access the [facility] Patient Portal on the [facility] erika. Simply click on Patient Portal and then log into your account. If you would like to receive a full copy of your medical records, please contact the [facility] Medical Records Department by calling [phone], Sunday through Sunday between 8 a.m. and [...] Call your local pharmacy or go to [email or web address] [email or web address] to find one close to you.3.Make use of household items: Use cat litter or old coffee grounds to dispose medications if other options arenot available. Mix your drugs with these household products, seal them in an airtight container andthrow it into the garbage. Call [facility]: [phone] to be sure your drugs can be [...] Failure Action Plan Heart Failure, Self Care, Phgi-kn-Vewx Heart Failure Eating Plan Medication Leaflets My discharge plan and instructions have been reviewed and explained to me and I,BEULAH BRIGHT understand my current condition and have read and understand these discharge instructions. I have received a written copy of the plan/instructions. If I have questions, I am aware that I should contact my doctor. Patient/Erp Pm Signature: Date/Time: Relationship to Patient: Witness Name/Signature: Date/Time: [facility] [id number] Discharge summary Date of Service 06/11/2023 Discharge [...] (E11.22 - ICD-10-CM) Atherosclerotic heart disease of [place] coronary artery without angina pectoris (I25.10 - [...] Draw (one day only), Blood, Once,Preferred Lab: [facility], Stop date 06/11/23 5:00:00 EDT(Complete) Other status: CBC,06/11/23 5:00:00 EDT, Next AM Draw (one day only), Blood, Once, Preferred Lab: [facility], Stop date 06/11/23 5:00:00 EDT(Complete) Other status: Chest XR 1 View (Portable),06/11/23 8:11:00 EDT, 06/11/23 8:11:00 EDT, Routine, evaluate for pulmonary edema, Full code, Portable: Yes, MTT with Monitor, Isolation: None, IV: Yes, Oxygen: Yes, Diabetes: Yes, : N/A, Wt k.3, [facility], ME6S(Complete) Other status: OT Consult,06/10/23 9:02:00 EDT, [...] steroids. Patient was reexamined on 06/08 by animal ride manager MICU team was less concern for COPD [...] You were transfused blood seen by a dinkey driver and started on IV diuretics (water pills). Please follow-up with your primary care doctor, we will have you follow-up with a dinkey driver for your aortic stenosis (narrow heart valve). Please follow-up with your established computer numerical control machinist. If you do not have an established computer numerical control machinist I will provide you with information for a computer numerical control machinist. Again please contact your primary care doctor [...] MD When In 2 weeks Where: [address] [facility] [place] [address]- Follow Up with ROJAS AVILA MD When In 2 weeks Where: [address] [facility] [address] [facility] [place] [address]- [phone] Follow Up with TALYA NICHOLS DO When Within 1-2 days Where: [address] [facility] [place] [address]- [phone] Follow Up Appointments No qualifying data available. [...] CHERI BROWNE MD on 06/11/2023 12:28 PM [facility] [id number] Gastroenterology Progress note Date of Service 06/11/2023 [...] extensive workup with his established GIphysician in [place]. He is currently hemodynamically stable and free [...] by MADELAINE MEI on 06/11/2023 11:27 AM [facility] [id number] Note ORIGINAL EXAMINATION: ONE XRAY VIEW OF [...] Sign Date: 06/11/2023 9:08:01 AM Ordering Provider: [facility]03-31-2024 Note Date of Service 06/10/2023 Chief Complaint [...] steroids. Patient was reexamined on 06/08 by animal ride manager MICU team was less concern for COPD [...] CHERI BROWNE MD on 06/10/2023 03:10 PM [facility] [id number] Cardiology Consult note Date of Service 06/09/2023 [...] Father and Sister. Hyperlipidemia: Mother. Hypertension: Mother. [place] - myocardial infarction: Mother. Immunizations pneumococcal 23-valent vaccine(Pneumovax: 0 unknown unit (01/31/16) pneumococcal 23-valent vaccine(Pneumovax: 0 unknown unit (07/31/14) SARS-CoV-2 mRNA (tozinameran) vaccine: 0.3 unknown unit (01/10/21) SARS-CoV-2 mRNA (tozinameran) vaccine: 0.5 unknown unit (06/19/20) SARS-CoV-2 mRNA (tozinameran) vaccine: 0.5 unknown unit (05/25/20) tetanus-diphtheria toxoids: 0 unknown unit (12/09/09) Digitally Signed by CAROL BARAHONA MD on 06/09/2023 01:03 PM [facility] [id number] Progress note SUBJECTIVE: Mr. Bright states his [...] with questions. BART POOLE MD JP/NTS JOB#: [id number] DICTATION ID#: [id number] Digitally Signed by BART POOLE MD on 06/10/2023 01:30 PM [facility] [id number] NoteSINUS RHYTHM PROLONGED [place] INTERVAL ABNORMAL R-WAVE PROGRESSION, EARLY TRANSITION LVH WITH SECONDARY REPOLARIZATION ABNORMALITY Electronic Signature: BART POOLE MD 06/10/2023 13:28:27[facility] 03-30-2024 Respiratory therapy Hospital Progress note Respiratory [...] Mesha Henry RT on 06/09/2023 10:42 PM [facility] [id number] Evaluation + Plan noteExtracted from: Title:History and [...] Transfusion floor and [facility] [place] Extracted from: Title:History and Physical Author:CINDY [...] Metabolic Panel 04/13/23 * N-Terminal proBNP 04/13/23 [facility] 03-30-2024 History and physical note Date of [...] department for furtherevaluation. He was seen at [facility] for this. Also states that he had [...] Transfusion floor and no further follow-up by [facility] service Problem List/Past Medical History Ongoing [...] Father and Sister. Hyperlipidemia: Mother. Hypertension: Mother. [place] - myocardial infarction: Mother. Immunizations pneumococcal 23-valent [...] AHMET CLARK MD on 06/09/2023 01:35 PM [facility] [id number] Cardiology Consult note Date of Service 06/09/2023 [...] Father and Sister. Hyperlipidemia: Mother. Hypertension: Mother. [place] - myocardial infarction: Mother. Immunizations pneumococcal 23-valent vaccine(Pneumovax: 0 unknown unit (01/31/16) pneumococcal 23-valent vaccine(Pneumovax: 0 unknown unit (07/31/14) SARS-CoV-2 mRNA (tozinameran) vaccine: 0.3 unknown unit (01/10/21) SARS-CoV-2 mRNA (tozinameran) vaccine: 0.5 unknown unit (06/19/20) SARS-CoV-2 mRNA (tozinameran) vaccine: 0.5 unknown unit (05/25/20) tetanus-diphtheria toxoids: 0 unknown unit (12/09/09) Digitally Signed by CAROL BARAHONA MD on 06/09/2023 01:03 PM [facility] [id number] Gastroenterology Consult note Reason for Consultation Anemia [...] of his care has been up at [facility] or at [facility]. He follows with a computer numerical control machinist at [place], Dr. Joy. The patient states that despite his anemia, he has not noted any gross GI bleeding. It appears he had multiple upper endoscopies performed with his primary computer numerical control machinist over the course of the past few [...] Despite his extensive workup with his primary computer numerical control machinist he does not recall having a recentcolonoscopy. [...] Father and Sister. Hyperlipidemia: Mother. Hypertension: Mother. [place] - myocardial infarction: Mother. Assessment/Plan 1. Anemia He has chronic issues with anemia. Appears he had issues with upper GI bleeding which prompted hospitalization a few months back. He has been following closely with a computer numerical control machinist locally. He believes that the results of [...] As detailed above, followed locally with his computer numerical control machinist. PPI therapy twice daily, continue to monitor [...] NAMRATA ESPINO MD on 06/09/2023 01:02 PM [facility] [id number] Note* Exam Date Time Procedure Performing Provider Status 06/09/23 10:04 AM Echocardiogram, Adult - CV Auth (Verified) [facility] 03-30-2024 History and physical note Date of [...] department for furtherevaluation. He was seen at [facility] for this. Also states that he had [...] Father and Sister. Hyperlipidemia: Mother. Hypertension: Mother. [place] - myocardial infarction: Mother. Immunizations pneumococcal 23-valent [...] AM Digitally Signed by AHMET CLARK MD [facility] [id number] Note ORIGINAL EXAMINATION: ONE XRAY VIEW OF [...] Date: 06/09/2023 12:03:08 AM Ordering Provider: CINDY LEWISAdams [facility] Medical [id number] Note ORIGINAL EXAMINATION: ONE XRAY VIEW OF [...] Date: 06/08/2023 2:31:11 PM [facility]ing [facility] NoteSinus rhythm Prolonged [place] interval Abnormal R-wave progression, early transition LVH with secondary repolarization abnormality Electronic Signature: KIRSTY GROSS MD 06/08/2023 15:54:28[facility] 03-15-2024 Hospital Discharge instructions Patient Education [...] your ankles gets worse Dizziness or weakness [phone] [employer]. [address] [place] [address], [place] [address]. All rights reserved. This information is not intended as a substitute for professional medical care. Always follow yourhealthcare professional's instructions. Follow Up Care 05/25/2023 14:51:34 With:TALYA NICHOLS DO Address: [address] [place] [address] [place] [address]- [phone] When:2-4 days [facility] 03-15-2024 Note Discharge Instructions Thank you [...] DO When Within 2-4 days Where: [address] [facility] [place] [address]- [phone] Allergies Valturna (Numbness of hand, Numbness of [...] your ankles gets worse Dizziness or weakness [phone] [employer]. [address] [place] [address]. All rights reserved. This information is not intended as a substitute for professional medical care. Always follow yourhealthcare professional's instructions. Additional Information VACCINATE! IT SAVES LIVES! Members of the community who have not yet received the COVID-19 vaccine and would like to receive it can visit one of [facility] vaccine clinics. There are many vaccine clinic locations within the [facility]. For locations and available times, please visit www.[email or web address].gov/. It is important to note that some COVID mobile vaccine clinics are held outdoors and may be canceled in rainy or stormy conditions. To learn more about pediatric vaccinations (ages 5-11), we invite you to visit the [facility] webpage. https://www.[facility].org/pages/2940-Jlbdu-Sywjciaplaq-Hmezwepqya-Eyafs-Rmh stions.htmlTo learn more about the COVID-19 vaccine, we invite you to visit the CDC website for a list of frequently asked questions. https://www.cdc.gov/coronavirus/2019-ncov/vaccines/faq.html [facility] Patient Portal Access Instructions: Stay connected with your healthcare team and access your personal medical information anytime with the [employer] Patient Portal. If you would like a full copy of your medical records please contact the [facility] Medical Records Department Sunday through Sunday between 8a.m. and 4:30p.m. Please follow the directions below to access the portal: 1.Access the email account you provided upon registration to the [facility].2.Look for an invitation email from [facility].3.Open the email and access the invitation link: Accept Invitation to [employer]4.Fill in the required hollis to create your account. Sign into [email or web address] with your username and password that you [...] you will allow to register on the [employer] Patient Portal for access to your information. You can also access the [employer] Patient Portal on the [employer] erika. Simply click on Health Records under HealthData and then click on the [email or web address] logo. HOW TO SAFELY DISPOSE OF PRESCRIPTION [...] Call your local pharmacy or go to http://bit.ly/9E6Ae9l to find one close to you.3.Make use of household items: Use cat litter or old coffee grounds to dispose medications if other options arenot available. Mix your drugs with these household products, seal them in an airtight container andthrow it into the garbage. Call [facility]: [phone] to be sure your drugs can be [...] aware that I should contact my doctor. Patient/Erp Pm Signature: Date/Time: Relationship to Patient: Witness Name/Signature: Date/Time: [facility]03-15-2024 Note ORIGINAL EXAMINATION: ONE XRAY VIEW [...] Date: 05/25/2023 3:46:57 PM Ordering Provider: [facility] NoteSinus rhythm Prolonged [place] interval LVH with secondary repolarization abnormality Anterior Q waves, possibly due to LVH Electronic Signature: ANNY DA SILVA MD 05/25/2023 15:32:43[facility] 02-27-2024 Hospital Discharge instructions Patient Education [...] Follow these instructions at home: Medicines Take ylmz-hep-jbmwhrk and prescription medicines only as told by your health care provider. Do not stop taking your medicines or change the amount you take. If you are having problems or sideeffects from your medicines, talk to your health care provider. If you are having difficulty paying for your medicines, contact a social security benefits interviewer or your clinic. There are many programs [...] 07/10/2017 Document Revised: 02/08/2018 Document Reviewed: 07/10/2017 Rambus Patient Education 2020 [employer]. 05/08/2023 14:54:37 Chronic Obstructive Pulmonary Disease Exacerbation [...] Follow these instructions at home: Medicines Take dkdr-udd-evollcq and prescription medicines only as told by [...] and water are not available, use hand cafe helper. During flu season, avoid enclosed spaces that [...] 12/24/2007 Document Revised: 02/08/2018 Document Reviewed: 04/02/2017 Rambus Patient Education 2020 [employer]. Follow Up Care 05/07/2023 09:41:27 With:TALYA NICHOLS DO Address: [address] [place] [address]- [phone] When:05/11/2023 12:30:00 Comments:This appointment can serve as your post-hospital follow-up appointment. [facility] 02-27-2024 Note Discharge Instructions Thank you for allowing [facility] to assist you with your healthcare needs. [...] 05/11/2023 12:30 PM EST TALYA NICHOLS DO [address] [phone] Follow Up Appointments Follow Up with TALYA NICHOLS DO When 05/11/2023 12:30 PM EST Why: This appointment can serve as your post-hospital follow-up appointment. Where: [address] [place] [phone]- [phone] The Following Activity and Diet Have Been [...] Every day Duration: 6 Days [facility] at [facility] New torsemide (torsemide 5 mg oral tablet) 1 tab(s) by mouth Every day Pickup at [facility]69 Changed empagliflozin (Jardiance 10 mg oral tablet) [...] making patient cough. Pharmacy Information [id number]: [address] [place], [place] [id number] [phone] What How Much When Comments Stop Taking [...] may report side effects to FDA at 2-346-BUN-5588. What other drugs will affect prednisone? Sometimes [...] may affect prednisone. This includes prescription and scgr-sxk-gailhya medicines, vitamins, and herbal products. Not all [...] to ensure that the information provided by [employer]. ('[employer]') is accurate, up-to-date, and complete, but no guarantee is made to that effect. Drug information contained herein may be time sensitive. [employer] information has been compiled for use by healthcare practitioners and consumers in the [place] and therefore [employer] does not warrant that uses outside of the [place] are appropriate, unless specifically indicated otherwise. [employer] drug information does not endorse drugs, diagnose patients or recommend therapy. [employer] drug information isan informational resource designed to [...] effective or appropriate for any given patient. [employer] does not assume any responsibility for any aspect of healthcare administered with the aid of information [employer] provides. The information contained herein is not intended to cover all possible uses, directions, precautions, warnings, drug interactions, allergic reactions, or adverse effects. If you have questions about the drugs you are taking, check with your doctor, nurse or pharmacist. Copyright 0888-4095 [employer]. Version: 10.. Revision Date: 06/06/2018. torsemide (oral/injection) [...] may report side effects to FDA at 1-254-UCJ-7110. What other drugs will affect torsemide? Tell [...] drugs may affect torsemide. This includes prescription lhbuulo-eje-zvycrvt medicines, vitamins, and herbal products. Not all [...] to ensure that the information provided by [employer]. ('[employer]') is accurate, up-to-date, and complete, but no guarantee is made to that effect. Drug information contained herein may be time sensitive. [employer] information has been compiled for use by healthcare practitioners and consumers in the [place] and therefore [employer] does not warrant that uses outside of the [place] are appropriate, unless specifically indicated otherwise. [employer] drug information does not endorse drugs, diagnose patients or recommend therapy. [employer] Pharmaceuticalss drug information isan informational resource designed to [...] effective or appropriate for any given patient. [facility] does not assume any responsibility for any aspect of healthcare administered with the aid of information [facility] provides. The information contained herein is not intended to cover all possible uses, directions, precautions, warnings, drug interactions, allergic reactions, or adverse effects. If you have questions about the drugs you are taking, check with your doctor, nurse or pharmacist. Copyright 3018-1197 [employer]. Version: 14.. Revision Date: 10/13/2022. Education Materials [...] Follow these instructions at home: Medicines Take fjig-hsy-jrswzki and prescription medicines only as told by your health care provider. Do not stop taking your medicines or change the amount you take. If you are having problems or sideeffects from your medicines, talk to your health care provider. If you are having difficulty paying for your medicines, contact a social security benefits interviewer or your clinic. There are many programs [...] 07/10/2017 Document Revised: 02/08/2018 Document Reviewed: 07/10/2017 [employer] Patient Education 2020 [employer] Chronic Obstructive Pulmonary Disease Exacerbation Chronic [...] Follow these instructions at home: Medicines Take ketm-nof-hajswer and prescription medicines only as told by [...] and water are not available, use hand cafe helper. During flu season, avoid enclosed spaces that [...] 12/24/2007 Document Revised: 02/08/2018 Document Reviewed: 04/02/2017 [employer] Patient Education 2020 [employer]. Additional Information VACCINATE! IT SAVES LIVES! Members of the community who have not yet received the COVID-19 vaccine and would like to receive it can visit one of [facility] vaccine clinics. There are many vaccine clinic locations within the [facility]. For locations and available times, please visit https://gettheshot.coronavirus.[place].gov/. It is important to note that some COVID mobile vaccine clinics are held outdoors and may be canceled in rainy or stormy conditions. To learn more about pediatric vaccinations (ages 5-11), we invite you to visit the [facility] webpage. https://www.[facility].org/pages/5286-Ripze-Efazqtakjpr-Eumeiqiuvg-Ctohh-Mgx stions.htmlTo learn more about the COVID-19 vaccine, we invite you to visit the CDC website for a list of frequently asked questions.https://www.cdc.gov/coronavirus/2019-ncov/vaccines/faq.html [employer] Patient Portal Access Instructions: Stay connected with your healthcare team and access your personal medical information anytime with the [employer] Patient Portal. Please follow the directions below to create your [employer] account: 1.Access the email account you provided upon registration to the hospital/physician office.2.Look for an invitation email from [facility].3.Open the email and access the invitation link: AcceptInvitation to [employer].4.Fill in the required hollis to create your account. To access your account, visit [email or web address]. Click the blue button labeled Access Patient Portal and then log in with the username and password that you created in the steps above (more content not included)... [facility]02-26-2024 Note Date of Service 05/07/2023 Chief Complaint has been having dispnea for a couple weks [facility] for [facility] History of Present Illness Patient is an 82-year-old male, who follows with Dr. Talya Nichols with a past medical history significant for type 2 diabetes, congestive heart failure, COPD, chronic kidney disease and hypothyroidism, presented to [facility] emergency department with the chief complaint of [...] shortness of breath. Patient was over at [facility] today for a post-hospitalization visit. He [...] interpretation. EKG EC05/07/23: Sinus rhythm Borderline prolonged KS interval Posterior infarct, old Nonspecific T abnormalities, [...] Father and Sister. Hyperlipidemia: Mother. Hypertension: Mother. IN - myocardial infarction: Mother. Immunizations pneumococcal 23-valent [...] by DELIA JEFFERSON on 05/07/2023 09:04 PM [facility]02-26-2024 Evaluation + Plan noteExtracted from: Title:History [...] Date:05/11/2023 12:30:00 PM Scheduled Provider:TALYA NICHOLS DO Location:[facility] Appointment Type:[facility] Hospital Follow-Up Future Scheduled Tests Laboratory* [...] Metabolic Panel 04/13/23 * N-Terminal proBNP 04/13/23 [facility] 02-26-2024 Note ORIGINAL EXAMINATION: ONE XRAY [...] Date: 05/07/2023 10:53:51 AM [facility]ing [facility] Note Sinus rhythm Borderline prolonged KS interval Posterior infarct, old Nonspecific T abnormalities, lateral leads Electronic Signature: KIRSTY GROSS MD 05/07/2023 11:42:23[facility] 02-20-2024 Discharge summary Author Frederick Logan [facility] May 01, 2023 2:55am Note Date/Time May 01, 2023 12:51am [facility] Medical Records Department [address] [place] [address] Emergency Department Summary 04/30/23 MR#: [id number] Acct: [id number] Name: BEULAH BRIGHT Rep #:[id number] : 1940 82 From: Frederick Logan [...] pain nausea or vomiting associated with this [facility] Medical History Acute and chronic respiratory failure with hypoxia Aortic valve stenosis, acquired Atherosclerotic heart disease of [place] coronary artery without angina pectoris CAD (coronary [...] (1,000 unit) capsule 25 mcg PO DAILY fvmrvip52/21/22 [History Last Taken 02/15/23] ipratropium 0.5 mg-albuterol [...] SOB 05/02/21 [History Last Taken 02/15/23] vitamins A,C,F-oojn-evthzk 4,296 mcg-226 mg-90 mg capsule (PreserVision AREDS) [...] % (Auto) 60.3 Lymph % (Auto) 24.1 Tompkins % (Auto) 9.3 Eos % (Auto) 5.6 [...] representing chronic interstitial lung disease. Electronically Signed: Alexis Perera DO at 23:07 EST , Chest [...] 2 cap PO BID PreserVision AREDS 14,320-226-200 gkmb-kt-hiyt Capsule 1 cap PO BID lisinopril [Zestril] [...] your Primary Care Provider. Call [facility] ([phone]) or report to the closest Emergency Room. Call 911 if necessary. 05/01/23 0255 <Electronically signed by Frederick Logan DO> Cosigner Signature (if applicable): CC: Dr. Talya Nichols, ~ Signed [facility] Work Phone: 1(959) 899-560402-15-2024 Progress note Author Trell Kendrick [facility] April 26, 2023 8:01am Note Date/Time April 26, 2023 7:46am [facility] Medical Records Department [address] [place] [address] Progress Note - Cardiology 04/26/23739 MR#: [id number] Acct: [id number] Name: BEULAH BRIGHT Rep #:[id number] : 1940 82 From: Trell Kendrick MD PCP: Dr. Talya Nichols, Status:ADM IN Location: [place] [address] Subjective Subjective The patient was examined with [...] (Auto) 68.9, Lymph % (Auto) 17.5 L, Tompkins % (Auto) 8.3, Eos % (Auto) 4.4, [...] (Auto) 68.9, Lymph % (Auto) 17.5 L, Tompkins % (Auto) 8.3, Eos % (Auto) 4.4, [...] This can be followed up by his dinkey driver in the [facility]. I went over again the importance [...] Dr. Joy thepatient should follow-up with his [facility] dinkey driver to determine if iron replacement therapy would be of benefit to help with his heart failure. PLAN: Plan From a cardiovascular standpoint the patient can be discharged to home. The patient should continue with his home oxygen. The patient needs to get a basic metabolic panel done in 1 week and follow-up with his screw eye assembler. He should make certain he and includes his new medical regiment when he follows up with the screw eye assembler and his dinkey driver at [facility]. Charges/Coding Visit Charges Inpatient E&M: 32643 Subs Hosp L3 04/26/23 0801 <Electronically signed by Trell Kendrick MD> Cosigner Signature (if applicable): CC: ~ Signed [facility] Work Phone: 1([phone]) 143-275902-14-2024 Progress note Author John Anders [facility] April 25, 2023 1:58pm Note Date/Time April 25, 2023 1:51pm [facility] Medical Records Department [address] [place] [address] Progress Note - Hospitalist 04/25/23 1348 MR#: [id number] Acct: [id number] Name: BEULAH BRIGHT Rep #:[id number] : 1940 82 From: John fsoter MD PCP: Dr. Talya Nichols, DO Status:ADM IN Location: [place] [address] Subjective Subjective Breathing little bit better, discussed [...] 76.7 H, Lymph % (Auto) 12.0 L, Tompkins % (Auto) 6.1, Eos % (Auto) 4.5, [...] (Auto) 68.9, Lymph % (Auto) 17.5 L, Tompkins % (Auto) 8.3, Eos % (Auto) 4.4, [...] DVT: Heparin Charges/Coding Visit Charges Inpatient E&M: 12866 Subs Hosp L2 04/25/23 2747 <Electronically signed by John Anders MD> Cosigner Signature (if applicable): CC: ~ Signed [facility] Work Phone: 1(494) 188-127302-14-2024 Consult note Author Trell Kendrick [facility] April 25, 2023 9:09am Note Date/Time April 25, 2023 9:03am [facility] Medical Records Department [address] [place] [address] Consultation - Cardiology 04/25/23 0841 MR#: [id number] Acct: [id number] Name: BEULAH BRIGHT Rep #:[id number] : 1940 82 From: Trell Kendrick MD PCP: Dr. Talya Nichols, DO Status:ADM IN Location: [place] [address] Assessment & Plan Assessment/Plan (1) Acute on [...] has changed his cardiovascular care from the [place] [facility] to [place] where he sees a dinkey driver from [facility]. The patient also carries a history of [...] for some type of procedure at in [place] in the near future. (4) Anemia: QUALIFIERS: [...] 25. This is being followed by the [facility] according tothe patient's report. (7) Atherosclerotic heart disease of [place] coronary artery without angina pectoris: QUALIFIERS: [place] vs. transplanted heart: [place] heart QualifiedCode(s): I25.10 - Atherosclerotic heart disease of [place] coronary artery without angina pectoris PLAN: The [...] is managed by the primary service and [facility] dinkey driver he is on intensive statin therapy which should be continued as tolerated. (9) Carotid artery stenosis: QUALIFIERS: Laterality: bilateral Qualified Code(s): I65.23 - Occlusion and stenosis of bilateral carotid arteries PLAN: Carotid ultrasound revealed bilateral greater than 70% stenoses in February 2023. The patient is not a candidate for antiplatelet therapy at this point in time the patient should be followed by the [facility] forlong-term management. He denies any [...] need to be followed up by the [facility]. 5. The patient is to [...] needed the patient will follow-up with his [facility] dinkey driver after discharge at his request. HPI Consult Data Date of Consult: 04/25/23 HPI Narrative Reason for Consultation: SOB presumed CHF exacerbation HPI Narrative: BEULAH BRIGHT, is a 82 M who presents with what sounds to be acute decompensation of his heart failure with preserved ejection fraction. He was atthe screw eye assembler office yesterday and walking out developed profound [...] June 2022 was being evaluated in the [facility] office. He was on beta-greta [...] a heart rate between 90 and 105. [facility] Medical History Acute and chronic respiratory failure with hypoxia Aortic valve stenosis, acquired Atherosclerotic heart disease of [place] coronary artery without angina pectoris CAD (coronary [...] SOB 05/02/21 [History Last Taken 02/15/23] vitamins A,C,J-zlaf-ghjbyj 4,296 mcg-226 mg-90 mg capsule (PreserVision AREDS) [...] 13% Risk Charges/Coding Visit Charges Inpatient E&M: 31543 Init Hosp L3 Objective Data Vital Signs: [...] 76.7 H, Lymph % (Auto) 12.0 L, Tompkins % (Auto) 6.1, Eos % (Auto) 4.5, [...] (Auto) 68.9, Lymph % (Auto) 17.5 L, Tompkins % (Auto) 8.3, Eos % (Auto) 4.4, [...] 76.7 H, Lymph % (Auto) 12.0 L, Tompkins % (Auto) 6.1, Eos % (Auto) 4.5, [...] (Auto) 68.9, Lymph % (Auto) 17.5 L, Tompkins % (Auto) 8.3, Eos % (Auto) 4.4, [...] 17:33 EST Reading Location ID and State: [id number] Tel , Service support , EKG Initial [...] Nichols DO; Dr. Trell Kendrick MD~ Signed [facility] Work Phone: 1(957) 524-434902-13-2024 History and physical note Author Michelle Washburn [facility] April 24, 2023 8:07pm Note Date/Time April 24, 2023 8:07pm [facility] Medical Records Department [address] [place] [address] H&P Exam - Hospitalist 04/24/231948 MR#: [id number] Acct: [id number] Name: BEULAH BRIGHT Rep #:[id number] : 1940 82 From: Michelle Washburn DO PCP: Dr. Talya Nichols DO Status:ADM IN Location: [place] [id number]- [id number] HPI - General General Date of Admission: 04/24/23 Date of Service: 04/24/23 Chief Complaint: Shortness of breath HPI Narrative BEULAH BRIGHT, is a 82 M who presented to the emergency department at [facility] on 04/24/2023 complaining of shortness of breath. [...] shows first-degree heart block with a prolonged KS interval, normal QT interval with mild tachycardia and no ST-T wave changes concerning foracute ischemia. He was given IV Lasix 40 mg x 1 dose in the emergency department and request foradmission was made. As noted the patient is concerned that his Lasix is not working so I will transition to Bumex and give another 2 mg at the time of admission. [facility] Medical History Acute and chronic respiratory failure with hypoxia Aortic valve stenosis, acquired Atherosclerotic heart disease of [place] coronary artery without angina pectoris CAD (coronary [...] SOB 05/02/21 [History Last Taken 02/15/23] vitamins A,C,R-tevx-xlsghq 4,296 mcg-226 mg-90 mg capsule (PreserVision AREDS) [...] 76.7 H, Lymph % (Auto) 12.0 L, Tompkins % (Auto) 6.1, Eos % (Auto) 4.5, [...] with patient Charges/Coding Visit Charges Inpatient E&M: 26573 Init Hosp L2 04/24/232006 <Electronically signed by Michelle Washburn DO> Cosigner Signature (if applicable): CC: Dr. Michelle Washburn DO; Dr. Talya Nichols DO~ Signed [facility] Work Phone: 1(906) 204-987302-13-2024 Discharge summary Author Jr William [facility] April 24, 2023 8:00pm Note Date/Time April 24, 2023 4:47pm [facility] Medical Records Department [address] [place] [address] Emergency Department Summary 04/24/23 MR#: [id number] Acct: [id number] Name: BEULAH BRIGHT Rep #:[id number] : 1940 82 From: Jr Thomas DO PCP: Dr. Talya Nichols DO Status:ADM IN Location: [address] History of Present Illness Chief Complaint: Shortness of Breath Narrative Narrative: 82-year-old male with history of GI bleed, CHF, COPD, aortic stenosis, hyperlipidemia, CKD presenting with dyspnea. Patient states it started prior toarrival. Patient states he went to see his screw eye assembler today although we cannot remember the screw eye assembler name. He states that somebody at [facility] who comes out to [place]. He states he want to have him do blood work in about 3 weeks and go to the [facility] to have something taken care of of [...] or bloody stools that he knows of. [facility] Medical History Acute and chronic respiratory failure with hypoxia Aortic valve stenosis, acquired Atherosclerotic heart disease of [place] coronary artery without angina pectoris CAD (coronary [...] (1,000 unit) capsule 25 mcg PO DAILY isshvps07/21/22 [History Last Taken 02/15/23] ipratropium 0.5 mg-albuterol [...] SOB 05/02/21 [History Last Taken 02/15/23] vitamins A,C,H-vioj-ppghqk 4,296 mcg-226 mg-90 mg capsule (PreserVision AREDS) [...] 76.7 H Lymph % (Auto) 12.0 L Tompkins % (Auto) 6.1 Eos % (Auto) 4.5 [...] 17:33 EST Reading Location ID and State: [address] [place] [address] Tel , Service support , Discharge Plan Disposition Disposition: Acute Care Hospital [facility] Discharge Date/Time: 04/24/23 19:57 What to do if you have Problems For any increased pain, shortness of breath, bleeding, nausea or vomiting, chestpain, or any unexpected problems, contact your Primary Care Provider. Call [facility] ([phone]) or report to the closest Emergency Room. Call 911 if necessary. 04/24/231999 <Electronically signed by Jr Thomas DO> Cosigner Signature (if applicable): CC: Dr. Talya Nichols DO ~ Signed [facility] Work Phone: [phone]) [phone] Discharge summary Author Dimitry Lott [facility] April 07, 2023 3:47pm Note Date/Time April 07, 2023 1 :56pm [facility] Medical Records Department [address] [place] [address] Emergency Department Summary 04/07/23 MR#: [id number] Acct: [id number] Name: BEULAH BRIGHT Rep #:[id number] : 1940 82 From: Dimitry Lott [...] valve stenosis, acquired Atherosclerotic heart disease of [place] coronary artery without angina pectoris CAD (coronary [...] (1,000 unit) capsule 25 mcg PO DAILY ocxmiqo58/21/22 [History Last Taken 02/15/23] ipratropium 0.5 mg-albuterol [...] SOB 05/02/21 [History Last Taken 02/15/23] vitamins A,C,S-ytwi-ealxle 4,296 mcg-226 mg-90 mg capsule (PreserVision AREDS) [...] % (Auto) 63.9 Lymph % (Auto) 22.1 Tompkins % (Auto) 7.4 Eos % (Auto) 5.8 [...] rate of 106 no acute signs of IN or ischemia. This may be a junctional [...] 2 cap PO BID PreserVision AREDS 14,320-226-200 pgci-ki-amxz Capsule 1 cap PO BID lisinopril [Zestril] [...] your Primary Care Provider. Call [facility] ([phone]) or report to the closest Emergency Room. Call 911 if necessary. 04/07/23 2429 <Electronically signed by Dimitry Lott MD> Cosigner Signature (if applicable): CC: Dr. Talya Nichols DO ~ Signed [facility] Work Phone: 1(428) 906-765901-22-2024 Procedure [facility] 04-02-2023 Procedure [facility]12-29-2023 Consult note Author Radha Patricio [facility] March 09, 2023 2:22pm Note Date/Time March 09, 2023 2:22pm [facility] Medical Records Department [address] [place] [address] Counseling Note - Pharmacy 03/09/23 1422 MR#: [id number] Acct: [id number] Name: BEULAH BRIGHT Rep #:[id number] : 1940 82 From: Radha Patricio PCP: Dr. Talya Nichols DO Status:ADM IN Y Location: [place] [address] Pharmacy [place] Med Reconciliation Pharmacy Service has performed discharge [...] 18 mcg inhalation DAILY SOB 05/02/21 vitamins A,C,M-wcxz-tyidug 4,296 mcg-226 mg-90 mg capsule (PreserVision AREDS) [...] Signature (if applicable): Date CC: ~ Signed [facility] Work Phone: 1([phone]) 882-226812-29-2023 Discharge summary Author Fred Ramos [facility] March 09, 2023 12:25pm Note Date/Time March 09, 2023 12:25pm [facility] Medical Records [place] [address] Discharge Summary 03/09/23 1221 MR#: [id number] Acct: [id number] Name: BEULAH BRIGHT Rep #:[id number] : 1940 82 From: Fred Galvan PCP: Dr. Talya Nichols, DO Status:ADM IN Location: [place] [address] Providers Date of Admission: 03/07/23 Date of Discharge: 03/09/23 Primary Care Physician: Dr. Talay Nichols, DO Consultations 03/07/23 22:12 Consult: Gastroenterology Routine Consulting Provider: [facility] Reason for Consult: Recurrent upper GI [...] is an 82-year-old male who presented to [facility] ED on03/07/2023 with worsening shortness of breath [...] (1,000 unit) capsule 25 mcg PO DAILY mqugomd70/21/22 ipratropium 0.5 mg-albuterol 3 mg (2.5 mg base)/3 mL nebulization soln 3 ml inhalation 4X/DAY PRN sob 05/02/21 liothyronine 25 mcg tablet 25 mcg PO DAILY THYROID 05/02/21 omega-3 fatty acids-vitamin E 1,000 mg capsule 2 cap PO BID SUPPLEMENT 05/02/21 tiotropium bromide 18 mcg capsule with inhalation device (Spiriva with HandiHaler) 18 mcg inhalation DAILY SOB 05/02/21 vitamins A,C,A-cqff-gjwyrt 4,296 mcg-226 mg-90 mg capsule (PreserVision AREDS) [...] % (Auto) 57.7, Lymph % (Auto) 25.7, Tompkins % (Auto) 9.8, Eos % (Auto) 5.8 [...] 2 cap PO BID PreserVision AREDS 14,320-226-200 lkut-ci-hsqw Capsule 1 cap PO BID lisinopril [Zestril] [...] Self Care Charges/Coding Visit Charges Inpatient E&M: 29392 Disch Hosp >30min 03/09/23 1225 <Electronically signed by Fred Ramos MD> Cosigner Signature (if applicable): CC: Dr. Talya Nichols DO; Dr. Fred Ramos MD~ Signed [facility] Work Phone: 1(322) 290-357512-29-2023 Discharge summary Author Fred Ramos [facility] March 09, 2023 12:21pm Note Date/Time March 09, 2023 12:16pm [facility] Medical Records Department [address] [place] [address] Instructions for Home/Discharge Instructions 03/09/23 0915 MR#: [id number] Acct: [id number] Name: BEULAH BRIGHT Rep #:[id number] : 1940 82 From: Fred Galvan [...] 2 cap PO BID PreserVision AREDS 14,320-226-200 vkgq-ud-adyz Capsule 1 cap PO BID lisinopril [Zestril] [...] DO; Dr. Talya Nichols DO ~ Signed [facility] Work Phone: 1(790) 927-365212-28-2023 Consult note Author Fredy Friend [facility] March 08, 2023 4:49pm Note Date/Time March 08, 2023 4:46pm [facility] Medical Records Department [facility] [place] [address] Consultation - GI 03/07/23 2350 MR#: [id number] Acct: [id number] Name: BEULAH BRIGHT Rep #:[id number] : 1940 82 From: Fredy Friend DO PCP: Dr. Talya Nichols, DO Status:ADM IN Location: [place] [id number]- 1 HPI Consult Data Date of Consult: [...] in the ED were temp of 98.1F, KS of 99, BP of 132/64, RR of [...] in the stomach that were endoscopically treated. [facility] Medical History Acute and chronic respiratory failure with hypoxia Aortic valve stenosis, acquired Atherosclerotic heart disease of [place] coronary artery without angina pectoris CAD (coronary [...] (1,000 unit) capsule 25 mcg PO DAILY ifclbwz50/21/22 [History Last Taken 02/15/23] ipratropium 0.5 mg-albuterol [...] SOB 05/02/21 [History Last Taken 02/15/23] vitamins A,C,F-ipfv-vyijbm 4,296 mcg-226 mg-90 mg capsule (PreserVision AREDS) [...] % (Auto) 63.7, Lymph % (Auto) 25.2, Tompkins % (Auto) 8.2, Eos % (Auto) 2.5, [...] 19:54 EST Reading Location ID and State: [address] [place] [address] Tel , Service support , Assessment & [...] CHF, CAD status post non-ST segment elevation IN on medical therapy, COPD on oxygen who [...] of 3. Charges/Coding Visit Charges Inpatient E&M: 33574 Init Hosp L3 03/08/23 6308 <Electronically signed by Fredy Joy DO> Cosigner Signature (if applicable): CC: Dr. Romario Blancas DO; Dr. Talya Nichols, DO~ Signed [facility] Work Phone: 1(494) 194-568312-28-2023 Progress note Author Fred Ramos [facility] March 08, 2023 4:12pm Note Date/Time March 08, 2023 8:25am [facility] Medical Records Department [address] [place] [address] Progress Note - Hospitalist 03/08/23 0824 MR#: [id number] Acct: [id number] Name: BEULAH BRIGHT Rep #:[id number] : 1940 82 From: Fred Galvan PCP: Dr. Talya Nichols DO Status:ADM IN Location: [place] [address] Reason for Visit Reason for Visit: Diagnoses [...] % (Auto) 63.7, Lymph % (Auto) 25.2, Tompkins % (Auto) 8.2, Eos % (Auto) 2.5, [...] is an 82-year-old male who presented to [facility] ED on03/07/2023 with worsening shortness of breath [...] % (Auto) 63.7, Lymph % (Auto) 25.2, Tompkins % (Auto) 8.2, Eos % (Auto) 2.5, [...] Comment SCANNED Charges/Coding Visit Charges Inpatient E&M: 66993 Subs Hosp L2 03/08/23 1612 <Electronically signed by Fred Ramos MD> Cosigner Signature (if applicable): CC: ~ Signed [facility] Work Phone: [phone]) 932-728812-28-2023 Procedure [facility] 03-08-2023 [facility] Center12[facility]23 History and physical note Author [facility] March 08, 2023 2:17am Note Date/Time March 07, 2023 8:41pm [facility] Medical Records Department [address] [place] [address] H&P Exam - Hospitalist 03/07/232040 MR#: [id number] Acct: [id number] Name: BEULAH BRIGHT Rep #:[id number] 2 : 1940 82 From: Romario house DO PCP: Dr. Talya Nichols, DO Status:ADM IN Location: [place] [id number]- 1 HPI - General General Date of Admission: 03/07/23 Date of Service: 03/07/23 Chief Complaint: Worsening shortness of breath, dark stools HPI Narrative BEULAH BRIGHT, is a 82 M who presented to [facility] ED on 03/07/2023 with worsening shortness of [...] at this time. No other acute concerns. [facility] Medical History Acute and chronic respiratory failure with hypoxia Aortic valve stenosis, acquired Atherosclerotic heart disease of [place] coronary artery without angina pectoris CAD (coronary [...] (1,000 unit) capsule 25 mcg PO DAILY rnpkllo85/21/22 [History Last Taken 02/15/23] ipratropium 0.5 mg-albuterol [...] SOB 05/02/21 [History Last Taken 02/15/23] vitamins A,C,V-sama-iusdfp 4,296 mcg-226 mg-90 mg capsule (PreserVision AREDS) [...] % (Auto) 63.7, Lymph % (Auto) 25.2, Tompkins % (Auto) 8.2, Eos % (Auto) 2.5, [...] 19:54 EST Reading Location ID and State: [address] [place] [address] Tel , Service support , Assessment & Plan Assessment/Plan (1) Acute on chronic blood loss anemia: (2) Acute upper gastrointestinal bleeding: PLAN: Plan Patient is an 82-year-old male who presented to [facility] ED on03/07/2023 with worsening shortness of breath [...] 55 minutes. Charges/Coding Visit Charges Inpatient E&M: 22225 Init Hosp L2 03/08/23 0217 <Electronically signed by Romario Blancas DO> Cosigner Signature (if applicable): CC: Dr. Romario Blancas, ; Dr. Talya Nichols, ~ Signed [facility] Work Phone: [phone] 147-206312-27-2023 Discharge summary Author Eric Lester [facility] March 07, 2023 8:49pm Note Date/Time March 07, 2023 6:50pm [facility] Medical Records Department [address] [place] [address] Emergency Department Summary 03/07/23 MR#: [id number] Acct: [id number] Name: BEULAH BRIGHT Rep #:[id number] 8 : 1940 82 From: Eric Lester [...] Overall he is a very poor historian. [facility] Medical History Acute and chronic respiratory failure with hypoxia Aortic valve stenosis, acquired Atherosclerotic heart disease of [place] coronary artery without angina pectoris CAD (coronary [...] (1,000 unit) capsule 25 mcg PO DAILY mkqinyc67/21/22 [History Last Taken 02/15/23] ipratropium 0.5 mg-albuterol [...] SOB 05/02/21 [History Last Taken 02/15/23] vitamins A,C,A-aozh-tjmzuh 4,296 mcg-226 mg-90 mg capsule (PreserVision AREDS) [...] % (Auto) 63.7 Lymph % (Auto) 25.2 Tompkins % (Auto) 8.2 Eos % (Auto) 2.5 [...] Management Discussion w/another healthcare provider: Hospitalist and Glaucoma Specialist (GI friend) Critical Care Time Critical Care Time: Yes Critical care time (excluding procedures): 30-74 minutes (32 min), Including time spent:, Discussing w/Patient &/or Family/Professor Of Latin American Studies, Discussing w/Consultants, Arranging Admission or Transfer and Performing Direct Patient Care at Bedside Discharge Plan Dx/Rx/DC Orders Clinical Impression: Acute on chronic blood loss anemia, COPD (chronic obstructive pulmonary disease), Acute upper gastrointestinal bleeding, Symptomatic anemia Disposition Disposition: Acute Care Hospital [facility] What to do if you have Problems For any increased pain, shortness of breath, bleeding, nausea or vomiting, chestpain, or any unexpected problems, contact your Primary Care Provider. Call [facility] ([phone]) or report to the closest Emergency Room. Call 911 if necessary. 03/07/232048 <Electronically signed by Eric Lester MD> Cosigner Signature (if applicable): CC: Dr. Talya Nichols, DO ~ Signed [facility] Work Phone: [phone] 571-992412-27-2023 Discharge summary Author Eric Lester [facility] March 07, 2023 8:49pm Note Date/Time March 07, 2023 6:50pm [facility] Medical Records Department [address] [place] [address] Emergency Department Summary 03/07/23 MR#: [id number] Acct: [id number] Name: BEULAH BRIGHT Rep #:[id number] 8 : 1940 82 From: Eric Lester [...] Overall he is a very poor historian. [facility] Medical History Acute and chronic respiratory failure with hypoxia Aortic valve stenosis, acquired Atherosclerotic heart disease of [place] coronary artery without angina pectoris CAD (coronary [...] (1,000 unit) capsule 25 mcg PO DAILY mqlehnk93/21/22 [History Last Taken 02/15/23] ipratropium 0.5 mg-albuterol [...] SOB 05/02/21 [History Last Taken 02/15/23] vitamins A,C,Z-xxtu-finrso 4,296 mcg-226 mg-90 mg capsule (PreserVision AREDS) [...] % (Auto) 63.7 Lymph % (Auto) 25.2 Tompkins % (Auto) 8.2 Eos % (Auto) 2.5 [...] Management Discussion w/another healthcare provider: Hospitalist and Glaucoma Specialist (GI friend) Critical Care Time Critical Care Time: Yes Critical care time (excluding procedures): 30-74 minutes (32 min), Including time spent:, Discussing w/Patient &/or Family/Professor Of Latin American Studies, Discussing w/Consultants, Arranging Admission or Transfer and Performing Direct Patient Care at Bedside Discharge Plan Dx/Rx/DC Orders Clinical Impression: Acute on chronic blood loss anemia, COPD (chronic obstructive pulmonary disease), Acute upper gastrointestinal bleeding, Symptomatic anemia Disposition Disposition: Acute Care Hospital [facility] What to do if you have Problems For any increased pain, shortness of breath, bleeding, nausea or vomiting, chestpain, or any unexpected problems, contact your Primary Care Provider. Call [facility] ([phone]) or report to the closest Emergency Room. Call 911 if necessary. 03/07/232048 <Electronically signed by Eric Lester MD> Cosigner Signature (if applicable): CC: Dr. Talya Nichols, DO ~ Signed [facility] Work Phone: 1([phone]) 340-118412-07-2023 Discharge summary Author Anthony Sosa [facility] February 15, 2023 3:36pm Note Date/Time February 15, 2023 3 :02pm [facility] Medical Records Department [address] [place] [address] Instructions for Home/Discharge Instructions 02/15/23 1500 MR#: [id number] Acct: [id number] Name: BEULAH BRIGHT Rep #:[id number] 4 : 1940 82 From: Anthony Sosa [...] 2 cap PO BID PreserVision AREDS 14,320-226-200 zbsw-nk-ewui Capsule 1 cap PO BID lisinopril [Zestril] [...] Landa, ; Dr. Talya Nichols, ~ Signed [facility] Work Phone: [phone]) 543-359612-06-2023 Progress [facility] February 14, 2023 4:26pm Note Date/Time February 14, 2023 4 :19pm [facility] Medical Records Department [address] [place] [address] Progress Note - Hospitalist 02/14/23 1618 MR#: [id number] Acct: [id number] Name: BEULAH BRIGHT Rep #:[id number] 8 : 1940 82 From: Anthony Sosa [...] (Auto) 83.1 H, Lymph %(Auto) 5.0 L, Tompkins % (Auto) 8.3, Eos % (Auto) 3.2, [...] Clarity Clear, Urine pH 5.0, Ur Specific [place] 1.015, Urine Protein 30 H, Urine Glucose [...] 92.3 H, Lymph % (Auto) 4.7 L, Tompkins % (Auto) 1.3, Eos % (Auto) 1.3, [...] 35 minutes Charges/Coding Visit Charges Inpatient E&M: 85569 Subs Hosp L2 02/14/23 1626 <Electronically signed by Anthony Sosa DO> Cosigner Signature (if applicable): CC: ~ Signed [facility] Work Phone: [phone] 123-361412-06-2023 History and physical note Author Erika Amin [facility] February 14, 2023 5:51am Note Date/Time February 13, 2023 1 0:54pm [facility] Medical Records Department [address] [place] [address] H&P Exam - Hospitalist 02/13/23 2248 MR#: [id number] Acct: [id number] Name: BEULAH BRIGHT Rep #:[id number] 8 : 1940 82 From: Erika Talbert [...] cannula continuously, coronary artery disease; status post IN with left heart cath in March 2022, chronic diastolic CHF; withpreserved left ventricular ejection fraction, history of stenosis of aortic valve, history of TIA, chronic kidney disease; stage IV with a baseline creatinine of 2.88 mg/dL and a BUN of 97 mg/dL last week, GERD; with history of GI bleed secondary to gastric ulcers and osteoarthritis who presents to [facility] ER complaining of severe shortness of breath, [...] expected to be greater than 48 hours. [facility] Medical History (Updated 02/14/23 @ 00:[address] Erika Landa, DO) Aortic valve stenosis, acquired Atherosclerotic heart disease of [place] coronary artery without angina pectoris CAD (coronary [...] SOB 05/02/21 [History Last Taken 05/24/22] vitamins A,C,O-fgol-ubqvsg 4,296 mcg-226 mg-90 mg capsule (PreserVision AREDS) [...] (Auto) 83.1 H, Lymph %(Auto) 5.0 L, Tompkins % (Auto) 8.3, Eos % (Auto) 3.2, [...] Clarity Clear, Urine pH 5.0, Ur Specific [place] 1.015, Urine Protein 30 H, Urine Glucose [...] Reading Location ID and State: 1144 / [facility] Tel , Service support , Assessment & [...] of known coronary artery disease with previous IN and aortic stenosis - Serialize troponin. Check [...] 75 minutes. Charges/Coding Visit Charges Inpatient E&M: 72367 Init Hosp L3 02/14/23 0551 <Electronically signed by Erika Landa DO> Cosigner Signature (if applicable): CC: Dr. Erika Landa DO; Dr. Talya Nichols DO~ Signed [facility] Work Phone: [phone] 937-354212-06-2023 Discharge summary Author Jr Thomas [facility] February 13, 2023 11:05pm Note Date/Time February 13, 2023 8 :50pm [facility] Medical Records Department [address] [place] [address] Emergency Department Summary 02/13/23 MR#: [id number] Acct: [id number] Name: BEULAH BRIGHT Rep #:[id number] 7 : 1940 82 From: Jr Thomas [...] at this time. Denies chest pain currently. [facility] Medical History Aortic valve stenosis, acquired Atherosclerotic heart disease of [place] coronary artery without angina pectoris CAD (coronary [...] (1,000 unit) capsule 25 mcg PO DAILY dwpsovt20/21/22 [History Last Taken 05/24/22] ipratropium 0.5 mg-albuterol [...] SOB 05/02/21 [History Last Taken 05/24/22] vitamins A,C,A-pnym-ltbmnn 4,296 mcg-226 mg-90 mg capsule (PreserVision AREDS) [...] 83.1 H Lymph % (Auto) 5.0 L Tompkins % (Auto) 8.3 Eos % (Auto) 3.2 [...] Clarity Clear Urine pH 5.0 Ur Specific [place] 1.015 Urine Protein 30 H Urine Glucose [...] 2 cap PO BID PreserVision AREDS 14,320-226-200 vktd-xi-hnoo Capsule 1 cap PO BID lisinopril [Zestril] [...] your Primary Care Provider. Call [facility] ([phone]) or report to the closest Emergency Room. Call 911 if necessary. 02/13/23 2305 <Electronically signed by Jr Thomas DO> Cosigner Signature (if applicable): CC: Dr. Talya Nichols DO ~ Signed [facility] Work Phone: 1([phone]) 953-947212-05-2023 Discharge summary Author Jr Thomas [facility] February 13, 2023 11:05pm Note Date/Time February 13, 2023 8 :50pm [facility] Medical Records Department [address] [place] [address] Emergency Department Summary 02/13/23 MR#: [id number] Acct: [id number] Name: BEULAH BRIGHT Rep #:[id number] 7 : 1940 82 From: Jr Thomas [...] at this time. Denies chest pain currently. [facility] Medical History Aortic valve stenosis, acquired Atherosclerotic heart disease of [place] coronary artery without angina pectoris CAD (coronary [...] (1,000 unit) capsule 25 mcg PO DAILY udlyvsq83/21/22 [History Last Taken 05/24/22] ipratropium 0.5 mg-albuterol [...] SOB 05/02/21 [History Last Taken 05/24/22] vitamins A,C,E-mgew-iinlvj 4,296 mcg-226 mg-90 mg capsule (PreserVision AREDS) [...] 83.1 H Lymph % (Auto) 5.0 L Tompkins % (Auto) 8.3 Eos % (Auto) 3.2 [...] Clarity Clear Urine pH 5.0 Ur Specific [place] 1.015 Urine Protein 30 H Urine Glucose [...] 21:34 EST Reading Location ID and State: [facility] / [place] Tel , Service support , Cervical Spine CT 02/13/23 20:46 IMPRESSION: 1. No evidence of acute cervical spinal fracture or spondylolisthesis. 2. Multilevel degenerative changes of the cervical spine. 3. Straightening of the cervical spine which could be due to muscle spasm.. Electronically Signed: Jay Dowd MD at 21:38 EST Reading Location ID and State: [facility] / [place] Tel , Service support , Chest X-Ray [...] 2 cap PO BID PreserVision AREDS 14,320-226-200 vqdh-ux-njdw Capsule 1 cap PO BID lisinopril [Zestril] [...] your Primary Care Provider. Call [facility] ([phone]) or report to the closest Emergency Room. Call 911 if necessary. 02/13/232304 <Electronically signed by Jr Thomas DO> Cosigner Signature (if applicable): CC: Dr. Talya Nichols DO ~ Signed [facility] Work Phone: [phone]) 908-382509-19-2023 Note* Exam Date Time Procedure Performing Provider Status 11/28/22 10:16 AM Echocardiogram, Adult ([facility]OH) Auth (Verified) [facility] 09-09-2023 Discharge summary Author Erika Godwin [facility] November 18, 2022 12:45pm Note Date/Time November 18, 2022 12:44pm [facility] Medical Records Department [address] [place] [address] Discharge Summary 11/18/22 1234 MR#: [id number] Acct: [id number] Name: BEULAH BRIGHT Rep #:[id number] 2 : 1940 82 From: Erika Godwin MD PCP: Dr. Talya Nichols, Status:ADM [facility] Providers Date of Admission: 11/16/22 Date of Discharge: 11/18/22 Primary Care Physician: Dr. Talya Nichols, Consultations 11/17/22 02:11 Consult: Gastroenterology Routine Consulting Provider: [facility] Reason for Consult: GI bleed EMERGENT [...] (1,000 unit) capsule 25 mcg PO DAILY yhtothf58/21/22 ipratropium 0.5 mg-albuterol 3 mg (2.5 mg base)/3 mL nebulization soln 3 ml inhalation 4X/DAY PRN sob 05/02/21 liothyronine 25 mcg tablet 25 mcg PO DAILY THYROID 05/02/21 omega-3 fatty acids-vitamin E 1,000 mg capsule 2 cap PO BID SUPPLEMENT 05/02/21 tiotropium bromide 18 mcg capsule with inhalation device (Spiriva with HandiHaler) 18 mcg inhalation DAILY SOB 05/02/21 vitamins A,C,P-yqbt-xvqfxd 4,296 mcg-226 mg-90 mg capsule (PreserVision AREDS) [...] 2 cap PO BID PreserVision AREDS 14,320-226-200 drrn-nb-edcf Capsule 1 cap PO BID lisinopril [Zestril] [...] Health Service Charges/Coding Visit Charges Inpatient E&M: 35770 Disch Hosp >30min 11/18/22 1245 <Electronically signed by Erika Godwin MD> Cosigner Signature (if applicable): CC: Dr. Erika Godwin MD; Dr. Talya Nichols DO~ Signed [facility] Work Phone: 1(238) 827-230809-08-2023 Consult note Author Fredy Friend [facility] November 17, 2022 6:08pm Note Date/Time November 17, 2022 6:05pm [facility] Medical Records Department [address] [place] [address] Consultation - GI 11/16/22 2300 MR#: [id number] Acct: [id number] Name: BEULAH BRIGHT Rep #:[id number] 9 : 1940 82 From: Fredy Friend DO PCP: Dr. Talya Nichols, DO Status:ADM IN Location: [place] [address] HPI Consult Data Date of Consult: 11/16/22 [...] in the ED were temp of 98.1F, KS of 99, BP of 132/64, RR of [...] anemia likely due to upper GI bleed. [facility] Medical History (Updated 11/16/22 @ 19:57 by Christine Richmond) Aortic valve stenosis, acquired Atherosclerotic heart disease of [place] coronary artery without angina pectoris CAD (coronary [...] (1,000 unit) capsule 25 mcg PO DAILY wydjroz71/21/22 [History Last Taken 05/24/22] ipratropium 0.5 mg-albuterol [...] SOB 05/02/21 [History Last Taken 05/24/22] vitamins A,C,Y-qqwv-kqzkrf 4,296 mcg-226 mg-90 mg capsule (PreserVision AREDS) [...] % (Auto) 58.6, Lymph % (Auto) 24.6, Tompkins % (Auto) 7.1, Eos % (Auto) 8.8 [...] CHF, CAD status post non-ST segment elevation IN on medical therapy, COPD on oxygen who [...] of 3 Charges/Coding Visit Charges Inpatient E&M: 50216 Init Hosp L3 11/17/22 180 <Electronically signed by Fredy Friend > Cosigner Signature (if applicable): CC: Dr. Talya Nichols DO; Dr. Sarai Alcantara MD~ Signed [facility] Work Phone: 1([phone]) 734-494909-08-2023 History and physical note Author [facility] November 17, 2022 4:58pm Note Date/Time November 16, 2022 6:58pm [facility] Medical Records Department [address] [place] [address] History & Physical Exam 11/16/22 1845 MR#: [id number] Acct: [id number] Name: BEULAH BRIGHT Rep #:[id number] 1 : 1940 82 From: Sarai Alcantara MD PCP: Dr. Talya Nichols DO Status:ADM IN Location: [place] [address] HPI - General General Date of Admission: [...] in the ED were temp of 98.1F, KS of 99, BP of 132/64, RR of [...] anemia likely due to upper GI bleed. [facility] Medical History Aortic valve stenosis, acquired Atherosclerotic heart disease of [place] coronary artery without angina pectoris CAD (coronary [...] SOB 05/02/21 [History Last Taken 05/24/22] vitamins A,C,E-ywtk-vemzbr 4,296 mcg-226 mg-90 mg capsule (PreserVision AREDS) [...] % (Auto) 67.7, Lymph % (Auto) 19.8, Tompkins % (Auto) 6.2, Eos % (Auto) 5.5 [...] either needs intubation or CPR * total cjor-fn-dfbz time 18 minutes. Charges/Coding Visit Charges Inpatient E&M: 30097 Init Hosp L3 Procedures Hospitalists Procedures: 29028 Advncd Care Plan 30 Min 11/17/22 1658 <Electronically signed by Sarai Alcantara MD> Cosigner Signature (if applicable): CC: Dr. Talya Nichols DO; Dr. Sarai Alcantara MD~ Signed [facility] Work Phone: 1(338) 420-194209-08-2023 Progress note Author Sarai [facility] November 17, 2022 4:58pm Note Date/Time November 17, 2022 12:38pm [facility] Medical Records Department [facility] [place] [address] Progress Note 11/17/22 1212 MR#: [id number] Acct: [id number] Name: BEULAH BRIGHT Rep #:[id number] 8 : 1940 82 From: Sarai Alcantara MD PCP: Dr. Talya Nichols DO Status:ADM IN Location: [place] [address]- 1 Subjective Subjective Patient seen and examined. [...] % (Auto) 67.7, Lymph % (Auto) 19.8, Tompkins % (Auto) 6.2, Eos % (Auto) 5.5 [...] % (Auto) 58.6, Lymph % (Auto) 24.6, [place] % (Auto) 7.1, Eos % (Auto) 8.8 [...] intubation * Charges/Coding Visit Charges Inpatient E&M: 43398 Subs Hosp L2 11/17/22 1658 <Electronically signed by Sarai Alcantara MD> Sarai Alcantara MD Cosigner Signature (if applicable): CC: ~ Signed [facility] Work Phone: [phone]) [phone] Procedure [facility] 11-17-2022 Procedure [facility]09-07-2023 Discharge summary Author Lonnie Moreno [facility] November 16, 2022 6:57pm Note Date/Time November 16, 2022 4:47pm [facility] Medical Records Department [address] [place] [address] Emergency Department Summary 11/16/22 MR#: [id number] Acct: [id number] Name: BEULAH BRIGHT Rep #:[id number] 4 : 1940 82 From: Lonnie Moreno [...] earlier this year showed good ejection fraction. [facility] Medical History Aortic valve stenosis, acquired Atherosclerotic heart disease of [place] coronary artery without angina pectoris CAD (coronary [...] (1,000 unit) capsule 25 mcg PO DAILY hyidcse75/21/22 [History Last Taken 05/24/22] ipratropium 0.5 mg-albuterol [...] SOB 05/02/21 [History Last Taken 05/24/22] vitamins A,C,L-smgo-yxgxwk 4,296 mcg-226 mg-90 mg capsule (PreserVision AREDS) [...] % (Auto) 67.7 Lymph % (Auto) 19.8 Tompkins % (Auto) 6.2 Eos % (Auto) 5.5 [...] 17:47 EDT Reading Location ID and State: [facility] / [place] Tel , Service support , EKG Initial EKG: Comments: My independent interpretation of the patient's EKG shows sinus rhythm with first-degree AV block. Borderline tachycardia with overall rate of 97. There is some baseline variation and motion artifact but no ectopy. KS interval is long. QRS duration and QTc [...] 2 cap PO BID PreserVision AREDS 14,320-226-200 yhku-rm-nuho Capsule 1 cap PO BID lisinopril [Zestril] [...] Provider] - Disposition Disposition: Acute Care Hospital [facility] What to do if you have Problems For any increased pain, shortness of breath, bleeding, nausea or vomiting, chestpain, or any unexpected problems, contact your Primary Care Provider. Call [facility] ([phone]) or report to the closest Emergency Room. Call 911 if necessary. 11/16/221856 <Electronically signed by Lonnie Moreno MD> Cosigner Signature (if applicable): CC: Dr. Talya Nichols DO ~ Signed [facility] Work Phone: 1([phone]) [phone] Discharge summary Author Lonnie Moreno [facility] November 16, 2022 6:57pm Note Date/Time November 16, 2022 4:47pm [facility] Medical Records Department [address] [place] [address] Emergency Department Summary 11/16/22 MR#: [id number] Acct: [id number] Name: BEULAH BRIGHT Rep #:[id number] 4 : 1940 82 From: Lonnie Moreno [...] earlier this year showed good ejection fraction. [facility] Medical History Aortic valve stenosis, acquired Atherosclerotic heart disease of [place] coronary artery without angina pectoris CAD (coronary [...] (1,000 unit) capsule 25 mcg PO DAILY gzdygxj52/21/22 [History Last Taken 05/24/22] ipratropium 0.5 mg-albuterol [...] SOB 05/02/21 [History Last Taken 05/24/22] vitamins A,C,P-utpf-mtzgio 4,296 mcg-226 mg-90 mg capsule (PreserVision AREDS) [...] % (Auto) 67.7 Lymph % (Auto) 19.8 Tompkins % (Auto) 6.2 Eos % (Auto) 5.5 [...] variation and motion artifact but no ectopy. KS interval is long. QRS duration and QTc [...] 2 cap PO BID PreserVision AREDS 14,320-226-200 qzrd-uv-sbqo Capsule 1 cap PO BID lisinopril [Zestril] [...] Provider] - Disposition Disposition: Acute Care Hospital [facility] What to do if you have Problems For any increased pain, shortness of breath, bleeding, nausea or vomiting, chestpain, or any unexpected problems, contact your Primary Care Provider. Call [employer] [facility] ([phone]) or report to the closest Emergency Room. Call 911 if necessary. 11/16/22 1857 <Electronically signed by Lonnie Moreno MD> Cosigner Signature (if applicable): CC: Dr. Talya Nichols, DO ~ Signed [facility] Work Phone: 1(791) 358-116803-16-[address] Anders [facility] May 25, 2022 10:49am Note Date/Time May 25, 2022 10: 49am [facility] Medical Records Department [address] [place] [address] Progress Note - Hospitalist 05/25/22 1045 MR#: [id number] Acct: [id number] Name: BEULAH BRIGHT Rep #:[id number] 8 : 1940 81 From: John foster MD PCP: Dr. Talya Nichols, DO Status:ADM PAWEL Location: [place] [address] Subjective Subjective Doing well, says that he [...] 80.1 H, Lymph % (Auto) 10.9 L, [place]pkins % (Auto) 5.4, Eos % (Auto) 2.9, [...] 78.7 H, Lymph % (Auto) 12.6 L, [place] % (Auto) 6.4, Eos % (Auto) 1.7, [...] DVT: Heparin Charges/Coding Visit Charges Inpatient E&M: 19765 Subs Hosp L2 05/25/22 1049 <Electronically signed by John Anders MD> Cosigner Signature (if applicable): CC: ~ Signed [facility] Work Phone: 1([phone]) 564-358703-15-2023 History and physical note Author Dr. Pardo [facility] May 24, 2022 4:24pm Note Date/Time May 24, 2022 4:1 5pm [facility] Medical Records Department [address] [place] [address] H&P Exam - Hospitalist 05/24/22 1559 MR#: [id number] Acct: [id number] Name: BEULAH BRIGHT Rep #:[id number] 7 : 1940 81 From: Jennifer Pardo MD PCP: Dr. Talya Nichols, DO Status:ADM PAWEL Location: [place] [address] HPI - General General Date of Admission: 05/24/22 Date of Service: 05/24/22 Chief Complaint: SOB HPI Narrative BEULAH BRIGHT, is a 81 M with a history of heart failure, COPD on 2 L home O2,coronary artery disease, and hypertension who presented to [facility] 05/24/2022 with shortness of breath for several [...] significant complaints, denied swelling in his extremities. [facility] Medical History Acute exacerbation of CHF (congestive heart failure) Aortic valve stenosis, acquired Atherosclerotic heart disease of [place] coronary artery without angina pectoris CAD (coronary [...] SOB 05/02/21 [History Last Taken 05/24/22] vitamins A,C,K-ylbr-zpikpv 4,296 mcg-226 mg-90 mg capsule (PreserVision AREDS) [...] 80.1 H, Lymph % (Auto) 10.9 L, Tompkins % (Auto) 5.4, Eos % (Auto) 2.9, [...] documentation, 60minutes Charges/Coding Visit Charges Inpatient E&M: 04207 Init Hosp L2 05/24/22 1624 <Electronically signed by Jennifer Pardo MD> Cosigner Signature (if applicable): CC: Dr. Talya Nichols, DO; Dr. Jennifer Pardo MD~ Signed [facility] Work Phone: 1(150) 311-178603-15-[address] Edward [facility] May 24, 2022 3:51pm Note Date/Time May 24, 2022 11: 55am [facility] Medical Records Department [address] [place] [address] Emergency Department Summary 05/24/22 MR#: [id number] Acct: [id number] Name: BEULAH BRIGHT Rep #:[id number] : 1940 81 From: Yumiko Edward MD PCP: Dr. Talya Nichols, DO Status:ADM PAWEL Location: [place] [address] HPI History of Present Illness Chief Complaint: [...] to baseline. He denies any chest pain. 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 EKG obtained to evaluate for cardiac arrhythmia/ischemia. [...] 80.1 H Lymph % (Auto) 10.9 L Tompkins % (Auto) 5.4 Eos % (Auto) 2.9 [...] (Auto) Neut % (Auto) Lymph % (Auto) Tompkins % (Auto) Eos % (Auto) Baso % [...] there has been some debate between his dinkey driver and primary carephysician about how much Lasix he is supposed to be on. His dinkey driver wantedhim on 40 mg daily, however his [...] 2 cap PO BID PreserVision AREDS 14,320-226-200 chwa-hy-fnnh Capsule 1 cap PO BID lisinopril [Zestril] 20 mg tablet 20 mg PO DAILY Hold Instructions: Resume on 03/18/22. carvedilol 6.25 mg tablet 6.25 mg PO DAILY aspirin 81 mg tablet,chewable 81 mg PO DAILY@0800 furosemide [Lasix] 40 mg tablet 20 mg PO DAILY Primary Care Provider: Talya Nichols Referrals: Talya Nichols DO [Primary Care Provider] - Disposition Disposition: Acute Care Hospital [facility] What to do if you have Problems For any increased pain, shortness of breath, bleeding, nausea or vomiting, chestpain, or any unexpected problems, contact your Primary Care Provider. Call [facility] ([phone]) or report to the closest Emergency Room. Call 911 if necessary. 05/24/22 6267 <Electronically signed by Yumiko Edward MD> Cosigner Signature (if applicable): CC: Dr. Talya Nichols DO ~ Signed [facility] Work Phone: 1(274) 383-334203-15-[address] Edward [facility] May 24, 2022 3:51pm Note Date/Time May 24, 2022 11: 55am [facility] Medical Records Department [address] [place] [address] Emergency Department Summary 05/24/22 MR#: [id number] Acct: [id number] Name: BEULAH BRIGHT Rep #:[id number] : 1940 81 From: Yumiko Edward MD PCP: Dr. Talya Nichols, DO Status:ADM PAWEL Location: [place] [address] HPI History of Present Illness Chief Complaint: [...] to baseline. He denies any chest pain. 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 EKG obtained to evaluate for cardiac arrhythmia/ischemia. [...] 80.1 H Lymph % (Auto) 10.9 L Tompkins % (Auto) 5.4 Eos % (Auto) 2.9 [...] (Auto) Neut % (Auto) Lymph % (Auto) Tompkins % (Auto) Eos % (Auto) Baso % [...] there has been some debate between his dinkey driver and primary carephysician about how much Lasix he is supposed to be on. His dinkey driver wantedhim on 40 mg daily, however his [...] 2 cap PO BID PreserVision AREDS 14,320-226-200 rgnm-sl-xuya Capsule 1 cap PO BID lisinopril [Zestril] 20 mg tablet 20 mg PO DAILY Hold Instructions: Resume on 03/18/22. carvedilol 6.25 mg tablet 6.25 mg PO DAILY aspirin 81 mg tablet,chewable 81 mg PO DAILY@0800 furosemide [Lasix] 40 mg tablet 20 mg PO DAILY Primary Care Provider: Talya Nichols Referrals: Talya Nichols DO [Primary Care Provider] - Disposition Disposition: Acute Care Hospital [facility] What to do if you have Problems For any increased pain, shortness of breath, bleeding, nausea or vomiting, chestpain, or any unexpected problems, contact your Primary Care Provider. Call [facility] ([phone]) or report to the closest Emergency Room. Call 911 if necessary. 05/24/22 5841 <Electronically signed by Yumiko Edward MD> Cosigner Signature (if applicable): CC: Dr. Talya Nihcols, DO ~ Signed [facility] Work Phone: 1(212) 181-687302-02-[address] Anders [facility] April 13, 2022 10:37am Note Date/Time April 13, 2022 1 0:37am [facility] Medical Records Department [address] [place] [address] Discharge Summary 04/13/22 1033 MR#: [id number] Acct: [id number] Name: BEULAH BRIGHT Rep #:[id number] : 1940 81 From: John foster MD PCP: Dr. Talya Nichols DO Status:ADM IN Location: [place] [address] Providers Date of Admission: 04/11/22 Primary Care [...] (1,000 unit) capsule 25 mcg PO DAILY mppgtzo56/21/22 glimepiride 4 mg tablet 4 mg PO [...] 18 mcg inhalation DAILY SOB 05/02/21 vitamins A,C,Z-utgc-toweal 4,296 mcg-226 mg-90 mg capsule (PreserVision AREDS) [...] should call either his PCP or his dinkey driver about taking extra Lasix. We will do [...] % (Auto) Cancelled, Lymph % (Auto) Cancelled, Tompkins % (Auto) Cancelled, Eos % (Auto) Cancelled, [...] Tear DropCells Cancelled, Ovalocytes Cancelled, Stomatocytes Cancelled, [place] Bodies Cancelled, Glory Cells Cancelled, Bite Cells [...] % (Auto) 69.0, Lymph % (Auto) 20.3, Tompkins % (Auto) 6.4, Eos % (Auto) 3.9, [...] % (Auto) 56.0, Lymph % (Auto) 29.3, Tompkins % (Auto) 8.8, Eos % (Auto) 5.2 [...] to 5 days as well as your dinkey driver within a month. It is important that [...] Capsule 2 cap PO BID PreserVision AREDS 14,708-182-862 jtkg-qj-yxbs Capsule 1 cap PO BID lisinopril [Zestril] 20 mg tablet 20 mg PO DAILY Hold Instructions: Resume on 03/18/22. carvedilol 6.25 mg tablet 6.25 mg PO DAILY aspirin 81 mg tablet,chewable 81 mg PO DAILY@0800 Discontinued torsemide 10 mg tablet 2.5 mg PO DAILY Referrals / Follow Up: Talya Nichols DO [Primary Care Provider] - 04/19/22 1:30 pm Bart Galo NP, [employer] [Med Staff - Adv Practice Prof] - 05/02/22 10:00 am Disposition Disposition (needs filled in before D/C Order can be placed): Home, Self Care Charges/Coding Visit Charges Inpatient E&M: 72154 Disch Hosp >30min 04/13/22 1037 <Electronically signed by John Anders MD> Cosigner Signature (if applicable): CC: Dr. Talya Nichols DO; Dr. John Anders MD~ Signed [facility] Work Phone: 1(707) 915-979902-02-[address] Anders [facility] April 13, 2022 9:58am Note Date/Time April 13, 2022 9 :55am [facility] Medical Records Department [address] [place] [address] Instructions for Home/Discharge Instructions 04/13/22 0954 MR#: [id number] Acct: [id number] Name: BEULAH BRIGHT Rep #:[id number] : 1940 81 From: John foster [...] to 5 days as well as your dinkey driver within a month. It is important that [...] 2 cap PO BID PreserVision AREDS 14,320-226-200 xolh-rl-xfhk Capsule 1 cap PO BID lisinopril [Zestril] [...] MD; Dr. Talya Nichols, DO ~ Signed [facility] Work Phone: 1(413) 450-715802-01-[address] Anders [facility] April 12, 2022 12:25pm Note Date/Time April 12, 2022 1 2:21pm [facility] Medical Records Department [address] [place] [address] Progress Note - Hospitalist 04/12/22 1210 MR#: [id number] Acct: [id number] Name: BEULAH BRIGHT Rep #:[id number] : 1940 81 From: John foster MD PCP: Dr. Talya Nichols, DO Status:ADM IN Location: [place] [address] Subjective Subjective Doing well, no issues overnight. [...] % (Auto) 66.7, Lymph % (Auto) 22.4, Tompkins % (Auto) 6.0, Eos % (Auto) 4.3, [...] % (Auto) Cancelled, Lymph % (Auto) Cancelled, Tompkins % (Auto) Cancelled, Eos % (Auto) Cancelled, [...] Tear DropCells Cancelled, Ovalocytes Cancelled, Stomatocytes Cancelled, [place] Bodies Cancelled, Okay Cells Cancelled, Bite Cells Cancelled, Crenated Cell [...] DVT: Heparin Charges/Coding Visit Charges Inpatient E&M: 14219 Subs Hosp L2 04/12/22 1225 <Electronically signed by John Anders MD> Cosigner Signature (if applicable): CC: ~ Signed [facility] Work Phone: 1(669) 156-331102-01-2023 History and physical note Author Dr. Sainz [facility] April 11, 2022 11:39pm Note Date/Time April 11, 2022 9 :13pm [facility] Medical Records Department [address] [place] [address] H&P Exam - Hospitalist 04/11/222112 MR#: [id number] Acct: [id number] Name: BEULAH BRIGHT Rep #:[id number] : 1940 81 From: Ayesha Sainz MD PCP: Dr. Talya Nichols, DO Status:ADM IN Location: [facility] [id number] HPI - General General Date of [...] x-ray showed bilateral effusions and bibasilar opacities/atelectasis. [facility] Medical History Aortic valve stenosis, acquired Atherosclerotic heart disease of [place] coronary artery without angina pectoris CAD (coronary [...] (1,000 unit) capsule 25 mcg PO DAILY uvirhpi97/21/22 [History Last Taken 03/11/22] glimepiride 4 mg [...] SOB 05/02/21 [History Last Taken 03/11/22] vitamins A,C,X-vuur-bcotcl 4,296 mcg-226 mg-90 mg capsule (PreserVision AREDS) [...] % (Auto) 66.7, Lymph % (Auto) 22.4, Tompkins % (Auto) 6.0, Eos % (Auto) 4.3, [...] nursing staff. Charges/Coding Visit Charges Inpatient E&M: 28259 Init Hosp L3 04/11/22 2339 <Electronically signed by Ayesha Sainz MD> Cosigner Signature (if applicable): CC: Dr. Ayesha Sainz MD; Dr. Talya Nichols DO~ Signed [facility] Work Phone: 1(285) [phone] Yan [facility] April 11, 2022 8:43pm Note Date/Time April 11, 2022 7 :03pm [facility] Medical Records Department [address] [place] [address] Emergency Department Summary 04/11/22 MR#: [id number] Acct: [id number] Name: BEULAH BRIGHT Rep #:[id number] : 1940 81 From: Dusty Yan [...] 1: Proximal - Moderate calcification, Proximal - [place] bend with 50 % Stenosis CIRCUMFLEX ARTERY: [...] Prior similar symptoms: Yes Recent Illness/Hospitalization: [facility] Medical History Aortic valve stenosis, acquired Atherosclerotic heart disease of [place] coronary artery without angina pectoris CAD (coronary [...] (1,000 unit) capsule 25 mcg PO DAILY dwwczys26/21/22 [History Last Taken 03/11/22] glimepiride 4 mg [...] SOB 05/02/21 [History Last Taken 03/11/22] vitamins A,C,C-mxal-tvoftx 4,296 mcg-226 mg-90 mg capsule (PreserVision AREDS) [...] % (Auto) 66.7 Lymph % (Auto) 22.4 Tompkins % (Auto) 6.0 Eos % (Auto) 4.3 [...] rate of 83 and first-degree AV block. KS interval 218 ms. QRS duration 80 ms. QT duration 256 ms. Tignall is normal. There is no acute ischemic [...] 2 cap PO BID PreserVision AREDS 14,320-226-200 vink-iv-zmxn Capsule 1 cap PO BID lisinopril [Zestril] [...] Provider] - Disposition Disposition: Acute Care Hospital [facility] What to do if you have Problems For any increased pain, shortness of breath, bleeding, nausea or vomiting, chestpain, or any unexpected problems, contact your Primary Care Provider. Call [facility] ([phone]) or report to the closest Emergency Room. Call 911 if necessary. 04/11/222042 <Electronically signed by Dusty Yan MD> Cosigner Signature (if applicable): CC: Dr. Talya Nichols, DO ~ Signed [facility] Work Phone: 1(863) 733-514802-12-2022 Hospital Discharge instructions Patient Education 04/23/2021 16:15:50 [...] Cough with dark-colored or bloody sputum (mucus) 9024-2440 [employer]. [address] [place] [address]. All rights reserved. This information is not intended as a substitute for professional medical care. Always follow yourhealthcare professional's instructions. Follow Up Care 04/23/2021 13:41:51 With:TALYA NICHOLS DO Address: [id number] When:2-4 days [facility] Discharge summary Author Dr. Anders [facility] May 26, 2022 10:19am Note Date/Time May 26, 2022 10: 16am [facility] Medical Records Department [address] [place] [address] Instructions for Home/Discharge Instructions 05/26/22 1014 MR#: [id number] Acct: [id number] Name: BEULAH BRIGHT Rep #:[id number] : 1940 81 From: John foster [...] 2 cap PO BID PreserVision AREDS 14,320-226-200 ulcg-op-zqun Capsule 1 cap PO BID lisinopril [Zestril] [...] DO; Dr. Jennifer Pardo MD ~ Signed [facility] Work Phone: Discharge summary Author John Anders [facility] April 26, 2023 3:53pm Note Date/Time April 26, 2023 3:30pm [facility] Medical Records Department [address] [place] [address] Instructions for Home/Discharge Instructions 04/26/23 1529 MR#: [id number] Acct: [id number] Name: BEULAH BRIGHT Rep #:[id number] : 1940 82 From: John foster [...] 2 cap PO BID PreserVision AREDS 14,320-226-200 jaqh-pm-rjlr Capsule 1 cap PO BID lisinopril [Zestril] [...] have lab orders waiting for you at [facility] to be done on sunday or Sunday) Disposition Disposition (needs filled in before D/C Order can be placed): Home, Self Care 04/26/23 1553<Electronically signed by John Anders MD>John Anders MD CC: Dr. Michelle Washburn DO; Dr. Talya Nichols DO; Dr. Trell Kendrick MD ~ Signed [facility] Work Phone: Discharge summary Author John Anders [facility] April 26, 2023 4:09pm Note Date/Time April 26, 2023 4:09pm [facility] Medical Records Department [address] [place] [address] Discharge Summary 04/26/23 1603 MR#: [id number] Acct: [id number] Name: BEULAH BRIGHT Rep #:[id number] : 1940 82 From: John foster MD PCP: Dr. Talya Nichols DO Status:ADM IN Location: [place] [address] Providers Date of Admission: 04/24/23 Primary Care Physician: Dr. Talya Nicohls DO Consultations 04/25/23 07:00 Consult: Cardiology Routine [...] (1,000 unit) capsule 25 mcg PO DAILY wrepads63/21/22 ipratropium 0.5 mg-albuterol 3 mg (2.5 mg base)/3 mL nebulization soln 3 ml inhalation 4X/DAY PRN sob 05/02/21 liothyronine 25 mcg tablet 25 mcg PO DAILY THYROID 05/02/21 omega-3 fatty acids-vitamin E 1,000 mg capsule 2 cap PO BID SUPPLEMENT 05/02/21 tiotropium bromide 18 mcg capsule with inhalation device (Spiriva with HandiHaler) 18 mcg inhalation DAILY SOB 05/02/21 vitamins A,C,R-xose-yrinkq 4,296 mcg-226 mg-90 mg capsule (PreserVision AREDS) [...] [facility] of shortness of breath. [...] shows first-degree heart block with a prolonged KS interval, normal QT interval with mild tachycardia [...] Neut % (Auto) 59.6, Lymph % (Auto) 24.7,Tompkins % (Auto) 8.8, Eos % (Auto) 6.0 [...] 2 cap PO BID PreserVision AREDS 14,320-226-200 anpz-kn-wegp Capsule 1 cap PO BID lisinopril [Zestril] [...] have lab orders waiting for you at [facility] to be done on sunday or Sunday) Disposition Disposition (needs filled in before D/C Order can be placed): Home, Self Care Charges/Coding Visit Charges Inpatient E&M: 81584 Disch Hosp >30min 04/26/23 1609 <Electronically signed by John Anders MD> Cosigner Signature (if applicable): CC: Dr. Talya Nichols DO; Dr. John Anders MD~ Signed [facility] Work Phone: Evaluation + Plan note Future Appointments Appointment Date:07/06/2021 02:00:00 PM Scheduled Provider:TALYA NICHOLS DO Location:[facility] Appointment Type:PC OV Follow Up Future Scheduled Tests Laboratory* Thyroid Stimulating Hormone 06/28/21 * A1C Hemoglobin 06/28/21 * Lipid Profile 06/28/21 * Vitamin D Level 06/28/21 * Complete Metabolic Panel 06/28/21 [facility] Evaluation + Plan note Future Appointments Appointment Date:01/12/2022 11:30:00 AM Scheduled Provider:TALYA NICHOLS DO Location:[facility] Appointment Type:PC OV [facility] Evaluation + Plan note Future Appointments Appointment Date:01/17/2022 01:30:00 PM Scheduled Provider:TALYA NICHOLS DO Location:[facility] Appointment Type: OV [facility] Evaluation + Plan note Future Appointments Appointment Date:04/25/2022 02:00:00 PM Scheduled Provider:TALYA NICHOLS DO Location:[facility] Appointment Type: OV [facility] Evaluation + Plan note Future Appointments Appointment Date:07/25/2022 02:00:00 PM Scheduled Provider:TALYA NICHOLS DO Location:[facility] Appointment Type: OV Future Scheduled Tests Laboratory* Complete Blood Count 06/09/22 * Microalbumin Level Urine 04/25/22 * Complete Metabolic Panel 05/12/22 * Complete Metabolic Panel 06/09/22 * N-Terminal proBNP 05/12/22 * N-Terminal proBNP 06/09/22 [facility] Evaluation + Plan note Future Appointments Appointment Date:07/25/2022 02:00:00 PM Scheduled Provider:TALYA NICHOLS DO Location:[facility] Appointment Type: OV Future Scheduled Tests Laboratory* Complete Blood Count 06/16/22 * Microalbumin Level Urine 04/25/22 * Complete Metabolic Panel 05/12/22 * Complete Metabolic Panel 06/16/22 * N-Terminal proBNP 05/12/22 * N-Terminal proBNP 06/16/22 [facility] Evaluation + Plan note Future Appointments Appointment Date:07/25/2022 02:00:00 PM Scheduled Provider:TALYA NICHOLS DO Location:[facility] Appointment Type:PC OV Future Scheduled Tests Laboratory* Microalbumin Level Urine 04/25/22 * Complete Metabolic Panel 05/12/22 * N-Terminal proBNP 05/12/22 [facility] Evaluation + Plan note Future Appointments Appointment Date:10/25/2022 04:30:00 PM Scheduled Provider:TALYA NICHOLS DO Location:[facility] Appointment Type:PC OV ED Follow Up Appointment Date:11/10/2022 11:30:00 AM Scheduled Provider:TALYA NICHOLS DO Location:[facility] Appointment Type:PC OV Appointment Date:11/16/2022 10:30:00 AM Scheduled Provider:TALYA NICHOLS DO Location:[facility] Appointment Type:PC OV Future Scheduled Tests Laboratory* Microalbumin Level Urine 04/25/22 * Complete Metabolic Panel 05/12/22 * N-Terminal proBNP 05/12/22 [facility] Evaluation + Plan note Future Appointments Appointment Date:11/10/2022 11:30:00 AM Scheduled Provider:TALYA NICHOLS DO Location:[facility] Appointment Type:PC OV Appointment Date:11/15/2022 09:30:00 AM Scheduled Provider: Location:[facility] Appointment Type:CV OV Future Scheduled Tests Laboratory* Microalbumin Level Urine 04/25/22 * Complete Metabolic Panel 05/12/22 * N-Terminal proBNP 05/12/22 [facility] Evaluation + Plan note Future Appointments Appointment Date:11/28/2022 10:00:00 AM Scheduled Provider: Location:[facility] Appointment Type:CV Procedure - AOH Echo Appointment Date:01/19/2023 11:30:00 AM Scheduled Provider:TALYA NICHOLS DO Location:[facility] Appointment Type:PC OV Diagnostic Tests Pending * Renin, Plasma 11/24/22 Future Scheduled Tests Laboratory* Microalbumin Level Urine 04/25/22 * Complete Metabolic Panel 05/12/22 [facility] Evaluation + Plan note Future Appointments Appointment Date:11/30/2022 09:20:00 AM Scheduled Provider:MELONIE BULLARD APRN, CNP Location:[facility] Appointment Type:PC OV Appointment Date:01/19/2023 11:30:00 AM Scheduled Provider:TALYA NICHOLS DO Location:[facility] Appointment Type:PC OV Future Scheduled Tests Laboratory* Microalbumin Level Urine 04/25/22 * Complete Metabolic Panel 05/12/22 [facility] Evaluation + Plan note Future Appointments Appointment Date:02/09/2023 02:45:00 PM Scheduled Provider: Location:[facility] Appointment Type:CV OV Appointment Date:03/02/2023 08:30:00 AM Scheduled Provider:TALYA NICHOLS DO Location:[facility] Appointment Type:PC OV Future Scheduled Tests Laboratory* Complete Blood Count 01/19/23 * Microalbumin Level Urine 04/25/22 * Complete Metabolic Panel 01/19/23 * Complete Metabolic Panel 05/12/22 [facility] Evaluation + Plan note Future Appointments Appointment Date:02/09/2023 02:45:00 PM Scheduled Provider: Location:[facility] Appointment Type:CV OV Appointment Date:03/02/2023 08:30:00 AM Scheduled Provider:TALYA NICHOLS DO Location:[facility] Appointment Type:PC OV Future Scheduled Tests Laboratory* Basic Metabolic Panel 02/02/23 * Complete Blood Count 02/02/23 [facility] Evaluation + Plan note Future Appointments Appointment Date:02/09/2023 02:45:00 PM Scheduled Provider: Location:[facility] Appointment Type:CV OV Appointment Date:03/02/2023 08:30:00 AM Scheduled Provider:TALYA NICHOLS DO Location:[facility] Appointment Type:PC OV [facility] Evaluation + Plan note Future Appointments Appointment Date:02/23/2023 11:00:00 AM Scheduled Provider:TALYA NICHOLS DO Location:[facility] Appointment Type:PC OV TCM 30 Appointment Date:03/02/2023 08:30:00 AM Scheduled Provider:TALYA NICHOLS DO Location:[facility] Appointment Type:PC OV Future Scheduled Tests Laboratory* Basic Metabolic Panel 02/08/23 * Complete Blood Count 02/08/23 [facility] Evaluation + Plan note Future Appointments Appointment Date:03/02/2023 08:30:00 AM Scheduled Provider:TALYA NICHOLS DO Location:[facility] Appointment Type:PC OV Future Scheduled Tests Laboratory* Basic Metabolic Panel 02/08/23 * Complete Blood Count 02/08/23 [facility] Evaluation + Plan note Future Appointments Appointment Date:04/13/2023 01:30:00 PM Scheduled Provider:TALYA NICHOLS DO Location:[facility] Appointment Type:PC OV Future Scheduled Tests Laboratory* [...] Count 02/08/23 * Complete Metabolic Panel 04/11/23 [facility] evaluation + Plan note Future Appointments Appointment Date:05/11/2023 12:30:00 PM Scheduled Provider:TALYA NICHOLS DO Location:[facility] Appointment Type:PC OV Future Scheduled Tests Laboratory* [...] Metabolic Panel 04/13/23 * N-Terminal proBNP 04/13/23 [facility] Evaluation + Plan note Future Appointments Appointment Date:06/19/2023 11:00:00 AM Scheduled Provider:TALYA NICHOLS DO Location:[facility] Appointment Type:PC OV Future Scheduled Tests Laboratory* [...] N-Terminal proBNP 05/17/23 * N-Terminal proBNP 04/13/23 [facility] Evaluation + Plan note Future Appointments [...] Metabolic Panel 04/13/23 * N-Terminal proBNP 04/13/23 [facility] Evaluation + Plan note Future Appointments Appointment Date:06/19/2023 11:00:00 AM Scheduled Provider:TALYA NICHOLS DO Location:[facility] Appointment Type:PC OV Future Scheduled Tests Laboratory* [...] Metabolic Panel 04/13/23 * N-Terminal proBNP 04/13/23 [facility] Evaluation + Plan note Future Appointments Appointment Date:06/11/2023 11:00:00 AM Scheduled Provider:TALYA NICHOLS DO Location:[facility] Appointment Type:PC OV Future Scheduled Tests Laboratory* [...] Metabolic Panel 04/13/23 * N-Terminal proBNP 04/13/23 [facility] Evaluation + Plan note Future Appointments Appointment Date:08/28/2023 02:00:00 PM Scheduled Provider:TALYA NICHOLS DO Location:[facility] Appointment Type:PC OV Future Scheduled Tests Laboratory* [...] Panel 04/11/23 * Complete Metabolic Panel 04/13/23 [facility] evaluation noteNo assessment information available [facility] Work Phone: evaluation note* Diagnosis Onset Date Resolution Status Debility acute Dehydration acute Polyarthralgia acute Acute on chronic renal insufficiency chronic COPD (chronic obstructive pulmonary disease) [facility] Work Phone: evaluation note* Diagnosis Onset [...] (chronic obstructive pulmonary disease) chronic HTN (hypertension) [facility] Work Phone: Evaluation note* Diagnosis Onset [...] exacerbation of CHF (congestive heart failure) chronic [facility] Work Phone: evaluation note* Diagnosis [...] exacerbation of CHF (congestive heart failure) chronic [facility] Work Phone: Evaluation note* Diagnosis [...] insufficiency chronic Atherosclerotic heart diseas e of [place] coronary artery without angina pectoris acute Diastolic CHF acute Essential hypertension chron ic HLD (hyperlipidemia) chronic Nonrheumatic aortic (valve) stenosis chronic Renal insufficiency chronic CHF (congestive heart failure) acute History of CAD (coronary artery disease) acute [facility] Work Phone: Evaluation note* Diagnosis Onset Date Resolution Status Atherosclerotic heart diseas e of [place] coronary artery without angina pectoris acute Diastolic CHF acute Essential hypertension chron ic HLD (hyperlipidemia) chronic Nonrheumatic aortic (valve) stenosis chronic Renal insufficiency chronic [facility] Work Phone: Evaluation note* Diagnosis Onset Date Resolution Status Anemia acute GI bleed acute [facility] Work Phone: Evaluation note* Diagnosis Onset Date Resolution Status Anemia resolved GI bleed resolved [facility] Work Phone: Evaluation note* Diagnosis Onset Date Resolution Status Anemia resolved GI bleed resolved Acute bronchospasm acute Acute exacerbation of chroni c obstructive pulmonary disease (COPD) [facility] Work Phone: Evaluation note* Diagnosis Onset Date Resolution Status Anemia resolved GI bleed resolved Acute bronchospasm acute Near syncope acute Acute exacerbation of chroni c obstructive pulmonary disease (COPD) [facility] Work Phone: Evaluation note* Diagnosis Onset Date Resolution Status Anemia chronic GI bleed resolved Near syncope resolved Anemia chronic Acute upper gastrointestinal bleeding acute Symptomatic anemia acute Acute on chronic blood loss anemia chronic COPD (chronic obstructive pulmonary disease) chronic [facility] Work Phone: Evaluation note* Diagnosis Onset Date Resolution Status Anemia chronic GI bleed resolved Near syncope resolved Anemia chronic Acute upper gastrointestinal bleeding acute Symptomatic anemia acute Acute on chronic blood loss anemia chronic Anemia chronic COPD (chronic obstructive pulmonary disease) chronic GI bleed resolved [facility] Work Phone: Evaluation note* Diagnosis Onset Date Resolution Status Near syncope resolved Anemia chronic Acute upper gastrointestinal bleeding acute Anemia chronic COPD (chronic obstructive pulmonary disease) chronic Acute on chronic blood loss anemia resolved GI bleed resolved Acute upper gastrointestinal bleeding acute [facility] Work Phone: Evaluation note* Diagnosis Onset Date Resolution Status Near syncope resolved Anemia chronic Acute upper gastrointestinal bleeding acute Anemia chronic COPD (chronic obstructive pulmonary disease) chronic Acute on chronic blood loss anemia resolved GI bleed resolved Acute upper gastrointestinal bleeding acute Anemia chronic [facility] Work Phone: Evaluation note* Diagnosis [...] (HFpEF) acute Atherosclerotic heart diseas e of [place] coronary artery without angina pectoris acute Carotid artery stenosis acut e Elevated brain natriuretic peptide (BNP) level acute Elevated troponin acute Hypoxia acute Anemia chronic Essential hypertension chron ic HLD (hyperlipidemia) chronic Nonrheumatic aortic (valve) stenosis chronic Renal insufficiency chronic [facility] Work Phone: Evaluation note* Diagnosis Onset Date Resolution Status Near syncope resolved Anemia chronic Acute upper gastrointestinal bleeding acute Anemia chronic COPD (chronic obstructive pulmonary disease) chronic Acute on chronic blood loss anemia resolved GI bleed resolved Acute upper gastrointestinal bleeding acute Anemia chronic Acute dyspnea acute Atherosclerotic heart diseas e of [place] coronary artery without angina pectoris acute Carotid artery stenosis acut e Elevated brain natriuretic peptide (BNP) level acute Elevated troponin acute Hypoxia acute Anemia chronic Essential hypertension chron ic HLD (hyperlipidemia) chronic Nonrheumatic aortic (valve) stenosis chronic Renal insufficiency chronic Acute on chronic heart failu re with preserved ejection fraction (HFpEF) resolved [facility] Work Phone: Evaluation note* Diagnosis Onset Date Resolution Status Acute upper gastrointestinal bleeding acute Anemia chronic COPD (chronic obstructive pulmonary disease) chronic Acute on chronic blood loss anemia resolved GI bleed resolved Acute upper gastrointestinal bleeding acute Anemia chronic Acute dyspnea acute Atherosclerotic heart diseas e of [place] coronary artery without angina pectoris acute Carotid artery stenosis acut e Elevated brain natriuretic peptide (BNP) level acute Elevated troponin acute Hypoxia acute Anemia chronic Essential hypertension chron ic HLD (hyperlipidemia) chronic Nonrheumatic aortic (valve) stenosis chronic Renal insufficiency chronic Acute on chronic heart failu re with preserved ejection fraction (HFpEF) resolved [facility] Work Phone: History and physical note Author Dr. Pardo [facility] May 24, 2022 4:24pm Note Date/Time May 24, 2022 4:1 5pm [facility] Medical Records Department [address] [place] [address] H&P Exam - Hospitalist 05/24/22 1559 MR#: [id number] Acct: [id number] Name: BEULAH BRIGHT Rep #:[id number] : 1940 81 From: Jennifer Pardo MD PCP: Dr. Talya Nichols, DO Status:ADM PAWEL Location: [place] [address] HPI - General General Date of Admission: 05/24/22 Date of Service: 05/24/22 Chief Complaint: SOB HPI Narrative BEULAH BRIGHT, is a 81 M with a history of heart failure, COPD on 2 L home O2,coronary artery disease, and hypertension who presented to [facility] 05/24/2022 with shortness of breath for several [...] significant complaints, denied swelling in his extremities. [facility] Medical History Acute exacerbation of CHF (congestive heart failure) Aortic valve stenosis, acquired Atherosclerotic heart disease of [place] coronary artery without angina pectoris CAD (coronary [...] (1,000 unit) capsule 25 mcg PO DAILY urvkptk08/21/22 [History Last Taken 05/24/22] ipratropium 0.5 mg-albuterol [...] SOB 05/02/21 [History Last Taken 05/24/22] vitamins A,C,A-kokv-enksgh 4,296 mcg-226 mg-90 mg capsule (PreserVision AREDS) [...] 80.1 H, Lymph % (Auto) 10.9 L, [place] % (Auto) 5.4, Eos % (Auto) 2.9, [...] 12:39 EDT Reading Location ID and State: [address] [place] [address] Tel , Service support , Assessment & [...] documentation, 60minutes Charges/Coding Visit Charges Inpatient E&M: 16881 Init Hosp L2 05/24/22 1624 <Electronically signed by Jennifer Pardo MD> Cosigner Signature (if applicable): CC: Dr. Talya Nichols DO; Dr. Jennifer Pardo MD~ Signed [facility] Work Phone: History and physical note Author Fredy Joy [facility] April 02, 2023 10:43am Note Date/Time April 02, 2023 9 :51am [facility] Medical Records Department [address] [place] [address] History & Physical Exam 04/02/23 0951 MR#: [id number] Acct: [id number] Name: BEULAH BRIGHT Rep #:[id number] : 1940 82 From: Fredy Joy DO PCP: Dr. Talya Nichols DO Status:[facility] Location: [place] [address] History and Physical Date of Admission: 04/02/23 [...] in the ED were temp of 98.1F, KS of 99, BP of 132/64, RR of [...] in the stomach that were endoscopically treated. [facility] Medical History Acute and chronic respiratory failure with hypoxia Aortic valve stenosis, acquired Atherosclerotic heart disease of [place] coronary artery without angina pectoris CAD (coronary [...] SOB 05/02/21 [History Last Taken 02/15/23] vitamins A,C,V-eutq-ekuzus 4,296 mcg-226 mg-90 mg capsule (PreserVision AREDS) [...] % (Auto) 63.7, Lymph % (Auto) 25.2, [place] % (Auto) 8.2, Eos % (Auto) 2.5, [...] bleeding: PLAN: 82-year-old male who presented to [facility] ED on 03/07/2023 with worsening shortness of [...] no clinicalchanges since date of exam. 04/02/23 2598 <Electronically signed by Fredy Joy DO> Cosigner [...] (if applicable): cc: Dr. Talya Nichols DO; rFedy Joy DO ~* Signed [facility] Work Phone: History and physical note Author Tracy Angel [facility] Note Date/Time June 23, 2024 5:5 4pm [facility] Medical Records Department [address] [place] [address] H&P Exam - Hospitalist 06/23/24 1734 MR#: [id number] Acct: [id number] Name: BEULAH BRIGHT Rep #:[id number] : 1940 84 From: Tracy Angel MD PCP: Dr. Yuridia Hernandez MD Status:ADM I N Location: [place] [address] HPI - General General Date of Admission: [...] Disease, Nonobstructive CAD who presents to the [facility] ED with history of worsening shortness of [...] catheterization (LHC) (~03/15/22) Atherosclerotic heart disease of [place] coronary artery without angina pectoris Aortic valve [...] with inhalation device (Spiriva with HandiHaler) vitamins A,C,P-wflt-cdjwyc 4,296 1 cap PO BID vitamin 12/13/21 [...] 71.4 H, Lymph % (Auto) 17.7 L, [place] % (Auto) 6.6, Eos % (Auto) 3.5, [...] No acute abnormality is seen. 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 Charges/Coding Visit Charges Inpatient E&M: 46255 Init Hosp L3 Procedures Hospitalists Procedures: 21257 Advncd Care Plan 30 Min 06/23/24 2873 <Electronically signed by Tracy Angel MD> Cosigner Signature (if applicable): CC: Dr. Tracy Angel MD; Dr. Yuridia Hernandez MD~ Signed [facility] Work Phone: Hospital course Narrative No data available for this section [facility] Hospital Discharge instructions No data available for this section [facility] Hospital Discharge instructions Additional Instructions Follow-up with your primary care physician. Your EKG and labs today were consistent with your normal baseline. No specific new or concerning changes. Return if you are feeling worse. Use your inhalers as needed.[facility] Work Phone: Hospital Discharge instructions Additional Instructions Your workup today shows that everything is stable compared to your previous admission. Continue all of your medications as directed by your doctor. Continue to wear your oxygen between 2 and 4 L as needed for shortness of breath sensation and return to the ER should you have any [facility] Work Phone: Progress note No data available for this section [facility] Proodtmy note Author Fredy Joy [facility] March 09, 2023 4:23pm Note Date/Time March 09, 2023 4:23pm [facility] Medical Records Department [address] [place] [id number] Progress Note - GI 03/09/23 1621 MR#: [id number] Acct: [id number] Name: BEULAH BRIGHT Rep #:[id number] : 1940 82 From: Fredy Joy DO PCP: Dr. Talya Nichols, DO Status:ADM IN Location: [place] [address] Subjective Subjective Patient is doing well. He [...] % (Auto) 57.7, Lymph % (Auto) 25.7, [place] % (Auto) 9.8, Eos % (Auto) 5.8 [...] is an 82-year-old male who presented to [facility] ED on03/07/2023 with worsening shortness of breath [...] 5 days. Charges/Coding Visit Charges Inpatient E&M: 59789 Subs Hosp L3 03/09/23 1047 <Electronically signed by Fredy Friend DO> Cosigner Signature (if applicable): CC: ~ Signed [facility] Work Phone: Reason for referral (narrative)No reason for referral information availableWMercy Health Work Phone: Summary Purpose Family History No [...] Yes December 08, 2021 8:41am Power of Kindergarten Classroom Teacher Yes November 8:41am Name of Medical Power of Kindergarten Classroom Teacher ana m yadav December 08, 2021 8:41am Advance Directive Response Recorded Date/ Time Name of Medical Power of Kindergarten Classroom Teacher ana m yadav December 08, 2021 8:41am Name of Medical Power of Kindergarten Classroom Teacher Ana M carey r December 13, 2021 2:20pm Living Will Yes December 13 2:20pm Power of Kindergarten Classroom Teacher Yes December 13, 2 022 2:20pm Advance Directive Response Recorded Date/ Time Name of Medical Power of Kindergarten Classroom Teacher ana m yadav December 08, 2021 7:41am Name of Medical Power of Kindergarten Classroom Teacher Ana M carey r December 13, 2021 1:20pm Living Will No March 12 3:45am Power of Kindergarten Classroom Teacher No March 12, 023 3:45am Advance Directive Response Recorded Date/ Time Name of Medical Power of Kindergarten Classroom Teacher Ana M carey r December 13, 2021 1:20pm Name of Medical Power of Kindergarten Classroom Teacher ANA MJigarDAEVAE R April 11, 2022 6:15pm Living Will Yes April 11 6:15pm Power of Kindergarten Classroom Teacher Yes April 11, 2022 6:15pm Advance Directive Response Recorded Date/ Time Name of Medical Power of Kindergarten Classroom Teacher ANA M-DAEVAE R April 11, 2022 6:15pm Living Will Yes April 11 11:35pm Power of Kindergarten Classroom Teacher No April 11, 2022 11:35pm Advance Directive Response Recorded Date/ Time Name of Medical Power of Kindergarten Classroom Teacher ADE R April 11, 2022 7:15pm Living Will Yes May 24, 2022 11:15am Power of Kindergarten Classroom Teacher No May 24 11:15am Advance Directive Response Recorded Date/ Time Name of Medical Power of Kindergarten Classroom Teacher ADE R April 11, 2022 7:15pm Living Will Yes May 24, 2022 5:48pm Power of Kindergarten Classroom Teacher No May 24 5:48pm Advance Directive Response Recorded Date/ Time Name of Medical Power of Kindergarten Classroom Teacher daughter October 22, 2022 8:23pm Living Will Yes October 22 8:23pm Power of Kindergarten Classroom Teacher Yes October 22, 023 8:23pm Advance Directive Response Recorded Date/ Time Name of Medical Power of Kindergarten Classroom Teacher daughter October 22, 2022 8:23pm Name of Medical Power of Kindergarten Classroom Teacher recalled November 16, 2022 4:31pm Living Will Yes November 16, 023 4:31pm Power of Kindergarten Classroom Teacher Yes November 16, 2022 4:31pm Advance Directive Response Recorded Date/ Time Name of Medical Power of Kindergarten Classroom Teacher daughter October 22, 2022 8:23pm Name of Medical Power of Kindergarten Classroom Teacher recalled November 16, 2022 7:49pm Living Will Yes November 16, 7:49pm Power of Kindergarten Classroom Teacher Yes November 16, 2022 7:49pm Advance Directive Response Recorded Date/ Time Name of Medical Power of Kindergarten Classroom Teacher daughter October 22, 2022 7:23pm Name of Medical Power of Kindergarten Classroom Teacher recalled November 16, 2022 6:49pm Name of Medical Power of Kindergarten Classroom Teacher nikunj [facility] February 08, 2023 5:53pm Name of Medical Power of Kindergarten Classroom Teacher UNSURE February 13, 2023 8:14pm Living Will Yes February 13 8:14pm Power of Kindergarten Classroom Teacher Yes February 13, 2023 8:14pm Advance Directive Response Recorded Date/ Time Name of Medical Power of Kindergarten Classroom Teacher daughter October 22, 2022 7:23pm Name of Medical Power of Kindergarten Classroom Teacher recalled November 16, 2022 6:49pm Name of Medical Power of Kindergarten Classroom Teacher nikunj [facility] February 08, 2023 5:53pm Name of Medical Power of Kindergarten Classroom Teacher UNSURE February 13, 2023 8:14pm Living Will Yes February 13 11:53pm Power of Kindergarten Classroom Teacher No February 13, 2023 11:53pm Advance Directive Response Recorded Date/ Time Name of Medical Power of Kindergarten Classroom Teacher recalled November 16, 2022 6:49pm Name of Medical Power of Kindergarten Classroom Teacher Ana M daught er February 08, 2023 5:53pm Name of Medical Power of Kindergarten Classroom Teacher UNSURE February 13, 2023 8:14pm Living Will No March 07, 2 023 6:30pm Power of Kindergarten Classroom Teacher No March 07, 2023 6:30pm Advance Directive Response Recorded Date/ Time Name of Medical Power of Kindergarten Classroom Teacher recalled November 16, 2022 6:49pm Name of Medical Power of Kindergarten Classroom Teacher Ana M daught er February 08, 2023 5:53pm Name of Medical Power of Kindergarten Classroom Teacher UNSURE February 13, 2023 8:14pm Name of Medical Power of Kindergarten Classroom Teacher Ana M Singletary March 07, 2023 10:14pm Living Will Yes March 07, 023 10:14pm Power of Kindergarten Classroom Teacher Yes March 07, 2023 10:14pm Advance Directive Response Recorded Date/ Time Name of Medical Power of Kindergarten Classroom Teacher ON FILE March 28, 2023 11:29am Living Will Yes March 28 11:29am Power of Kindergarten Classroom Teacher Yes March 28, 2023 11:29am Name of Medical Power of Kindergarten Classroom Teacher Ana M daught er February 08, 2023 5:53pm Name of Medical Power of Kindergarten Classroom Teacher UNSURE February 13, 2023 8:14pm Name of Medical Power of Kindergarten Classroom Teacher Ana M Singletary March 07, 2023 10:14pm Advance Directive Response Recorded Date/ Time Name of Medical Power of Kindergarten Classroom Teacher ON FILE March 28, 2023 11:29am Name of Medical Power of Kindergarten Classroom Teacher ANA M April 07, 2023 1:45pm Living Will Yes April 07 1:45pm Power of Kindergarten Classroom Teacher Yes April 07, 2023 1:45pm Name of Medical Power of Kindergarten Classroom Teacher Ana M daught er February 08, 2023 5:53pm Name of Medical Power of Kindergarten Classroom Teacher UNSURE February 13, 2023 8:14pm Name of Medical Power of Kindergarten Classroom Teacher Ana M Hayder March 07, 2023 10:14pm Advance Directive Response Recorded Date/ Time Name of Medical Power of Kindergarten Classroom Teacher ON FILE March 28, 2023 11:29am Name of Medical Power of Kindergarten Classroom Teacher ANA M April 07, 2023 1:45pm Living Will No April 24 024 3:39pm Power of Kindergarten Classroom Teacher No April 24, 2023 3:39pm Name of Medical Power of Kindergarten Classroom Teacher Ana M, daught er February 08, 2023 5:53pm Name of Medical Power of Kindergarten Classroom Teacher UNSURE February 13, 2023 8:14pm Name of Medical Power of Kindergarten Classroom Teacher Ana M Hayder March 07, 2023 10:14pm Advance Directive Response Recorded Date/ Time Name of Medical Power of Kindergarten Classroom Teacher ON FILE March 28, 2023 11:29am Name of Medical Power of Kindergarten Classroom Teacher ANA M April 07, 2023 1:45pm Living Will Yes April 24 024 8:08pm Power of Kindergarten Classroom Teacher No April 24, 2023 8:08pm Name of Medical Power of Kindergarten Classroom Teacher Ana M, daught er February 08, 2023 5:53pm Name of Medical Power of Kindergarten Classroom Teacher RE February 13, 2023 8:14pm Name of Medical Power of Kindergarten Classroom Teacher Ana M Hayder March 07, 2023 10:14pm Advance Directive Response Recorded Date/ Time Name of Medical Power of Kindergarten Classroom Teacher ON FILE March 28, 2023 11:29am Name of Medical Power of Kindergarten Classroom Teacher ANA M April 07, 2023 1:45pm Name of Medical Power of Kindergarten Classroom Teacher Ana M, daught er February 08, 2023 5:53pm Name of Medical Power of Kindergarten Classroom Teacher UNSURE February 13, 2023 8:14pm Name of Medical Power of Kindergarten Classroom Teacher Ana M Hayder March 07, 2023 10:14pm Name of Medical Power of Kindergarten Classroom Teacher ANA M- [facility] April 30, 2023 9:47pm Living Will Yes April 30 9:47pm Power of Kindergarten Classroom Teacher Yes April 30, 2023 9:47pm Advance Directive Response Recorded Date/ Time Name of Medical Power of Kindergarten Classroom Teacher ON FILE March 28, 2023 12:29pm Name of Medical Power of Kindergarten Classroom Teacher ANA M April 07, 2023 2:45pm Name of Medical Power of Kindergarten Classroom Teacher Ana M Hayder March 07, 2023 11:14pm Name of Medical Power of Kindergarten Classroom Teacher ANA M- [facility] April 30, 2023 10:47pm Living Will No June 27, 2023 3:34pm Power of Kindergarten Classroom Teacher No June 26 3:34pm Advance Directive Response Recorded Date/ Time Living Will No June 23, 2024 2:33pm Do you have a Healthcare Power of Kindergarten Classroom Teacher? No June 23, 2024 2:33pm Living Will Yes February 27 7:32pm Do you have a Healthcare Power of Kindergarten Classroom Teacher? Yes February 28, 2024 7:32pm Name of Medical Power of Kindergarten Classroom Teacher Ana M February 28, 2024 7:32pm Advance Directive Response Recorded Date/ Time Living Will No June 23, 2024 6:43pm Do you have a Healthcare Power of Kindergarten Classroom Teacher? No June 23, 2024 6:43pm Living Will Yes February 27 7:32pm Do you have a Healthcare Power of Kindergarten Classroom Teacher? Yes February 28, 2024 7:32pm Name of Medical Power of Kindergarten Classroom Teacher Ana M February 28, 2024 7:32pm Advance Directive Response Recorded Date/ Time Living Will No June 23, 2024 6:43pm Do you have a Healthcare Power of Kindergarten Classroom Teacher? No June 23, 2024 6:43pm Chief Complaint [...] Congestive heart failure Congestive heart failure s/p [facility] ED 03-16-22 CHF Reason for Visit [...] stenosis Renal insufficiency Atherosclerotic heart disease of [place] coronary artery without angina pectoris Diastolic CHF [...] Congestive heart failure Congestive heart failure s/p [facility] ED 03-16-22 CHF Congestive heart failure [...] stenosis Renal insufficiency Atherosclerotic heart disease of [place] coronary artery without angina pectoris Diastolic CHF Essential hypertension HLD (hyperlipidemia) Nonrheumatic aortic (valve) stenosis Renal insufficiency CHF (congestive heart failure) History of CAD (coronary artery disease) Chief Complaint 2 M FU sob Reason for Visit Atherosclerotic hear t disease [place] coronary artery without angina pectoris Diastolic CHF [...] ejection fraction (HFpEF) Atherosclerotic heart disease [place] coronary artery without angina pectoris Carotid artery [...] Anemia Acute dyspnea Atherosclerotic heart disease [place] coronary artery without angina pectoris Carotid artery [...] Anemia Acute dyspnea Atherosclerotic heart disease [place] coronary artery without angina pectoris Carotid artery [...] section and content) DATE CREATED AUTHOR 11/28/2018 [facility] ([place]) DATE CREATED AUTHOR AUTHOR'S ORGANIZ ATION 08/20/2023 [facility] ([place]) DATE CREATED AUTHOR AUTHOR'S ORGANIZ ATION 04/05/2024 [facility] DATE CREATED AUTHOR AUTHOR'S ORGANIZ ATION 08/07/2024 [facility] Care Team (unrecognized sect ion and content) Care Team Personnel Name: TALYA NICHOLS DO Position: P4 Physician - Primary Care Med Service: Active Provider Member Role: Primary Care Physician Address: Address: [address] [place] [address] Care Team Related Persons Name: ANA M YADAV Care Team Personnel Name: TALYA NICHOLS DO Position: P4 Physician - Primary Care Member Role: Primary Care Physician Address: Address: [address] [place] [address] Care Team Related Persons Name: ANA M SINGLETARY Care Team Personnel Name: TALYA NICHOLS DO Position: P4 Physician - Primary Care Member Role: Primary Care Physician Address: Address: [address] [place] [address] Care Team Related Persons Name: ANA M [...] Yuridia Hernandez MD Family Provider Active Dr. Tlaya Nichols DO Primary Care Provider Active Team Status: Active Member Role Status Dates Dr. Talya Nichols DO Primary Care Provider Active Dr. Rnady Villanueva DO Emergency Provider Active Dr. Tracy [...] Yuridia Blunt MD Other Provider Active Dr. Jonh Anders MD Attending Provider, Other Provider Active [...] Provider, Referri ng Provider Active Bart Galo [employer], [employer] Attending Provider Active Team Status: Active Member [...] Active Member Role Status Dates Dr. Talya Ncihols , DO Primary Care Provider Active Dr. [...] Admit Provider, Other Provider Ac tive Dr. Trlel Kendrick MD Other Provider Active Dr. John [...] BE BASED ON THE PRIMARY CLINICAL RECORDS. [facility] [employer] provides no warranty or guarantee of the accuracy or completeness of information in this document.
--- OUTSIDE RECORDS SUMMARY | 2024-08-21 00:42 | XMS RPT_ITS | CCD ---
Author Organization [facility] CliniSymd Care Team Providers Care Cork Tipper Name Role Phone TALYA NICHOLS DO Primary Care Physician [phone] Dr. Talya Nichosl Primary Care Provider Dr. Randy Villanueva Emergency Provider Dr. Tracy Angel Admit Provider Dr. Tracy Angel Other Provider Dr. Andre Rodriguez Attending Provider [phone]([facility])[phone] Dr. Sarai Alcantara Attending Provider Korsedrick, Dr. Sarai Ortega Other Provider Dr. Talya Nichols Primary Care Provider Dr. Randy Villanueva Emergency Provider Dr. Tracy Angel Admit Provider Dr. Tracy Angel Other Provider Dr. Sarai Alcantara Attending Provider Dr. Julian Jang Attending Provider 1([facility])[phone] Tracy Angel Referring Provider Dr. Sarai Alcantara Other Provider Dr. Eric Lester Emergency Provider Dr. Andre Rodriguezit Provider Dr. Andre Rodriguez Attending Provider Dr. Andre Rodriguez Other Provider Dr. Anthony Sosa Other Provider 1([facility])[phone] Yuridia Blunt Attending Provider Dr. Yuridia Blunt Other Provider Dr. Anthony Sosa Attending Provider Dr. Gustavo Tariq Attending Provider Dr. John Anders Other Provider Dr. John Anders Attending Provider Dr. Dusty Yan Emergency Provider gerri, Dr. Hodge Admit Provider Emeli, Dr. Hodge [facility]. Hodge Other Provider Dr. Talya [...] Other Provider Dr. Talya Nichols Referring Provider [phone] Iraj WEED SCIENCE RESEARCH TECHNICIAN, WEED SCIENCE RESEARCH TECHNICIANAileen Santiago Attending Provider Dr. Yumiko Edward Emergency Provider [phone] Jennifer Pardo Admit Provider Dr. Jennifer Pardo Other Provider Dr. Talya Nichols Primary Care Provider Dr. Talya Nichols Referring Provider [phone] [facility] WEED SCIENCE RESEARCH TECHNICIAN, WEED SCIENCE RESEARCH TECHNICIAN-Fidencio Santiago Attending Provider Dr. Talya Nichols Primary [...] Unavailable Friend, Dr. Daniel Attending Provider [phone] Kor, Dr. Sarai Ortega Attending Provider [phone] Erika Godwin Attending Provider Unavailable Dr. Eyal Franklin Attending Provider Dr. Julian Jang Attending Provider Dr. Jr Thomas Emergency Provider [phone] Dr. Erika Landa Admit Provider Unavailabl e Landa, Dr. Gayle Other Provider Unavailabl e Dr. Anthony Sosa Attending Provider Dr. Anthony Sosa Other Provider TALYA NICHOLS DO Primary Care Physician [phone] Dr. Erika Landa Referring Provider Unavail [facility] Dr. Talya Nichols Referring Provider [phone] [...] Attending Provider Dr. Talya Nichols Referring Provider [phone] Benita, Dr. Daniel Other Provider Dr. Jr Thomas Emergency Provider [phone] Dr. Michelle Washburn Admit Provider Dr. Michelle [...] DO, TALYA Primary Care Unavailable JUAN MIGUEL PROCESS SAFETY MANAGEMENT ENGINEER - OFFSET MACHINE OPERATOR, MELONIE Galvan Attending U roland MAGDALENA DO, TALYA Primary Care Unavailable ANNY DA SILVA MD Attending Unavailable MAGDALENA DO, TALYA Primary Care Unavailable MAGDALENA DO, TALYA Primary Care Unavailable GINNY CARRILLO, KIRSTY Allan Attending Unavailable ADOLFO CARRILLO FACP, RONAL Louis Consulting Unavail able AHMET CLARK MD Consulting Unavailable MAGDALENA DO, TALYA Primary Care Unavailable ATUL PROCESS SAFETY MANAGEMENT ENGINEER-OFFSET MACHINE OPERATOR, DAMARIS Attending Unavai aydeele MAGDALENA DO, TALYA [...] MAGDALENA DO, TALYA Primary Care Unavailable KAPPER PROCESS SAFETY MANAGEMENT ENGINEER-OFFSET MACHINE OPERATOR, DELIA M Admitting Unavaila ble LI PROCESS SAFETY MANAGEMENT ENGINEER-OFFSET MACHINE OPERATOR, DELIA M Attending Unavaila anjelica MATA MD [...] Provider Edvin CARRILLO, Dr. Rodriguez Other Provider Quinton [...] Dr. Tracy Herrera Other Provider [phone] aMry CARRILLO, Dr. Hendrickson Primary Care Provider [phone] Care Unavailable Hernandez, Yuridia Primary Care Unavailable Gustaov Tariq Attending Unavailable Talya Nichols Referring Unavailable [...] of hand (finding), Numbness of finger (finding) [facility] Comment on above: to hand & fingers Opioid Agonists (1 source) Codeine; Translations: [codeine] Drug Allergy Stomach problem (finding) [facility] (20 sources) aliskiren / valsartan; Translations: [aliskiren-valsa rtan] Drug Allergy Numbness of hand (finding), Numbness of finger (finding) [facility] Comment on above: to hand & fingers (20 sources) Codeine; Translations: [codeine] Drug Allergy 2 Stomach problem (finding) [facility] (4 sources) aliskiren Drug Allergy 4 Other [facility] Comment on above: NUMBESS IN FINGERS (4 sources) valsartan Drug Allergy 4 [facility] Comment on above: NUMBESS IN FINGERS (1 source) aliskiren Drug Allergy 5 [facility] (1 source) Codeine Drug Allergy 5 [facility] (1 source) valsartan Drug Allergy 5 [facility] Medications Current Medications Medication Drug [...] WHEEZING, # 360 mL, 0 Refill(s), Pharmacy: [facility], 165.1, cm, 06/08/23 22:18:00 EDT, Height, kg, 06/08/23 22:18:00 EDT, Dosing Weight Start Date: 06/11/23 Stop Date: 07/11/23 Status: Ordered Start: 01-15-2020 albuterol-ipra tropium 2.5 mg-0.5 mg/3 mL inhalation solution Dose = 3 mL, Nebulized, QID, 1 EA = 1 box. use 1 ampule via nebulizer every 6 hours as needed for shortness of breath, # 1 EA, 2 Refill(s), Pharmacy: [facility], COPD (chronic obstructive pulmonary [...] Daily, # 90 tab(s), 3 Refill(s), Pharmacy: [facility], Hypercholesterolemia, 162.5, cm, 12/22/20 [...] Refill(s), 06/13/22 17:03:00 EDT, [facility]acy: [facility] #[id number], 165.1, cm, 06/02/22 13:23:00 EDT, Height Start Date: 06/06/22 Stop Date: 06/13/22 Status: Ordered carvedilol 3.125 mg oral tablet (20 sources) alpha-Adrenergic Greta, beta-Adrenergic Greta Start: 05-11-2023 carvedilol 3.125 mg oral tablet Dose : 3.125 mg = 1 tab(s), Oral, BID, # 180 tab(s), 1 Refill(s), Pharmacy: [facility], 165, cm, 05/11/23 13:05:00 EST, [...] BID, # 180 tab(s), 1 Refill(s), Pharmacy: [facility], NSTEMI (non-ST elevated myocardial [...] 30 tab(s), 5 Refill(s), [facility]: [facility] #[id number], Heart failure with preserved ejection fraction CKD [...] food., # 180 tab(s), 3 Refill(s), Pharmacy: [facility], Thrombocytopenia Anemia in CKD (chronic [...] 1 EA, 5 Refill(s), [facility]acy: [facility] #[id number], COPD with acute exacerbation, 161.5, cm, 11/10/22 [...] Daily, # 30 tab(s), 0 Refill(s), Pharmacy: [facility], 165.1, cm, 06/08/23 22:18:00 EDT, Height, [...] frequency, # 90 tab(s), 1 Refill(s), [facility]: [facility][id number], Heart failure with preserved ejection fraction Dyspnea [...] 0 Refill(s), 11/09/22 2:00:00 PM EDT, Pharmacy: [facility] #[id number], Chest congestion COPD with acute exacerbation, 161.5, [...] prescribed, # 30 tab(s), 0 Refill(s), Pharmacy: [facility] #[id number], COPD (chronic obstructive pulmonary disease) Heart failure [...] QID, # 120 EA, 5 Refill(s), Pharmacy: [facility], COPD with acute exacerbation Chronic [...] well, # 140 gram(s), 1 Refill(s), Pharmacy: [facility], Cream, 160, cm, 03/21/23 12:46:00 [...] 90 tab(s), 1 Refill(s), [facility]acy: [facility] #[id number], Hypothyroidism, 160, cm, 04/19/22 13:15:00 EST, Height, kg, 04/19/22 13:09:00 EST, Dosing Weight Start Date: 04/19/22 Stop Date: 10/16/22 Status: Ordered Start: 05-02-2021 [facility] 1 [facility] Liothyronine 25 mcg tablet Active 25 ug PO DAILY May 02, 2021 1:00am Start: 12-22-2020 End: 06-20-2021 liothyronine 25 mcg oral tab let Dose : 25 mcg = 1 tab(s), Oral, qDay, # 90 tab(s), 1 Refill(s), Pharmacy: [facility], Hypothyroidism, 162.5, cm, 12/22/20 [...] qDayM, # 30 tab(s), 0 Refill(s), Pharmacy: [facility], 165.1, cm, 06/08/23 22:18:00 EDT, [...] Date: 06/10/23 Stop Date: 06/10/23 Status: Completed [place]-3 Fatty Acids-Vitamin E (20 sources) Start: 05-02-2021 take 2 capsules by mouth twice daily [place]-3 Fatty Acids-Vitamin E Active 2 CAP PO TWICE A DAY May 02, 2021 12:00am Start: 05-02-2021 take 2 capsules by m outh twice daily [place]-3 Fatty Acids-Vitamin E Active 2 CAP PO [...] # 30 cap(s), 5 Refill(s), KESHA, Pharmacy: [facility], COPD without exacerbation COPD with acute exacerbation, 165.1, cm, 06/08/23 22:18:00 EDT, Height, kg, 06/08/23 22:18:00 EDT, Dosing Weight Start Date: 06/11/23 Stop Date: 12/08/23 Status: Ordered Start: 11-23-2022 End: 12-23-2022 take 2 puff(s) by inhalation once daily Spiriva Respimat 60 ACT 2.5 mcg/inh inhalation aerosol 2 puff(s), Inhalation, qDay, # 1 EA, 0 Refill(s), Pharmacy: [facility] #[id number], COPD (chronic obstructive pulmonary disease) Oxygen dependent, [...] # 30 cap(s), 5 Refill(s), KESHA, Pharmacy: [facility] #[id number], COPD (chronic obstructive pulmonary disease) COPD without exacerbation, 161.2, cm, 12/14/22 13:07:00 EDT, Height, kg, 12/14/22 13:07:00 EDT, Dosing Weight Start Date: 12/19/22 Stop Date: 06/17/23 Status: Ordered Start: 04-19-2022 End: 10-16-2022 Spiriva HandiHaler 18 mcg inhalation capsule Dose : 18 mcg = 1 cap(s), Inhalation, qDay, use two inhalations of one capsule for each dose, # 30 cap(s), 5 Refill(s), Pharmacy: [facility] #[id number], COPD (chronic obstructive pulmonary disease) COPD without exacerbation, 160, cm, 04/19/22 13:15:00 EST... Start Date: 04/19/22 Stop Date: 10/16/22 Status: Ordered Start: 09-27-2021 End: 04-18-2022 Spiriva HandiHaler 18 mcg inhalation capsule Dose : 18 mcg = 1 cap(s), Inhalation, qDay, use two inhalations of one capsule for each dose, # 30 cap(s), 1 Refill(s), Pharmacy: [facility], COPD (chronic obstructive pulmonary disease) COPD without exacerbation, 161, cm, 01/17/22 13:27:... Start Date: 02/17/22 Stop Date: 04/18/22 Status: Ordered Start: 05-02-2021 take 1 capsule by in halation once daily Tiotropium [place] (Spiriva With Handihaler) 18 mcg capsule, w/inhalation device Active 18 MCG INHALATION DAILY May 02, 2021 1:00am Start: 03-30-2021 Spiriva HandiH aler 18 mcg inhalation capsule See Instructions, 1 cap(s) use two inhalations of one capsule for each dose, # 30 cap(s), 5 Refill(s), Pharmacy: [facility], COPD (chronic obstructive pulmonary disease), 161.3, cm, 03/30/21 13:16:00 EST, Height, kg, 03/30/21 13:16:00 EST,... Start Date: 03/30/21 Status: Ordered Tiotropium [place] (Spiriva With Handihaler) 18 mcg capsule, w/inhalation device (17 sources) Start: 05-02-2021 Tiotropium Bro mide (Spiriva With Handihaler) 18 mcg capsule, w/inhalation device Active 18 ug INHALATION DAILY May 02, 2021 1:00am Start: 05-02-2021 take 1 capsule by in halation once daily Tiotropium [place] (Spiriva With Handihaler) 18 mcg capsule, w/inhalation device Active 18 MCG INHALATION DAILY May 02, 2021 12:00am Start: 05-02-2021 take 1 capsule by in halation once daily Tiotropium [place] (Spiriva With Handihaler) 18 mcg capsule, w/inhalation [...] Sunday, # 135 tab(s), 1 Refill(s), Pharmacy: [facility], (HFpEF) heart failure with preserved [...] dose, # 90 tab(s), 1 Refill(s), Pharmacy: [facility], Acute on chronic systolic CHF (congestive heart failure), 165, cm, 05/29/23 9:47:00 EDT, Height, kg, 05/29/23 9:47:00 EDT, Dosing Weight Start Date: 05/29/23 Status: Ordered Start: 05-11-2023 torsemide 5 mg oral tablet Dose : 5 mg = 1 tab(s), Oral, Daily, # 30 tab(s), 5 Refill(s), Pharmacy: [facility], Acute on chronic systolic CHF (congestive heart failure), 165, cm, 05/11/23 13:05:00 EST, Height, kg, 05/11/23 12:58:00 EST, Dosing Weight Start Date: 05/11/23 Status: Ordered Start: 05-08-2023 torsemide 5 mg oral tablet Dose : 5 mg = 1 tab(s), Oral, Daily, # 30 tab(s), 0 Refill(s), [facility]: [facility] #[id number], 165.1, cm, 05/07/23 14:29:00 EST, Height, kg, [...] qDay, # 90 tab(s), 1 Refill(s), Pharmacy: [facility], HTN (hypertension), 161, cm, [...] Daily, # 30 tab(s), 5 Refill(s), Pharmacy: [facility], HTN (hypertension), 162.4, cm, [...] qDay, # 90 tab(s), 3 Refill(s), Pharmacy: [facility], [facility] Anemia in CKD (chronic kidney disease), [...] Refill(s) Start Date: 01/03/22 Status: Ordered Vitamins A,C,O-Fwxx-Zobkzy (Preservision Areds) 14,320-226-200 vseh-tc-gxhc Capsule (20 sources) Start: 12-13-2021 Vitamins A,C,E -Zinc-Copper (Preservision Areds) 14,320-226-200 aqzp-lv-cvcu Capsule Active 1 NMA PO TWICE A DAY December 13, 2021 12:00am Start: 12-13-2021 take 1 capsule by [facility] twice daily Vitamins A,C,P-Bwnc-Zxfpwp (Preservision Areds) 14,320-226-200 otar-qg-eqex Capsule Active 1 CAP PO TWICE A DAY December 12, 2021 11:00pm Start: 12-13-2021 take 1 capsule by [facility] twice daily Vitamins A,C,F-Ihod-Knzyzu (Preservision Areds) 14,320226-200 jsuj-vx-qavm Capsule Active 1 CAP PO TWICE A [...] 9:25pm Start: 03-22-2022 take 1 tablet [facility] daily Aspirin Low Dose [...] daily, # 45 tab(s), 3 Refill(s), Pharmacy: [facility], HTN (hypertension), 162.5, cm, [...] daily, # 1 EA, 11 Refill(s), Pharmacy: [facility], Controlled diabetes mellitus with [...] daily, # 90 tab(s), 3 Refill(s), Pharmacy: [facility], Diabetes mellitus Diabetes, 162.5, [...] Daily, # 90 tab(s), 3 Refill(s), Pharmacy: [facility], HTN (hypertension), 162.5, cm, [...] 90 tab(s), 1 Refill(s), [facility]acy: [facility] #[id number], 161.5, cm, 02/09/23 14:13:00 EST, Height, kg, [...] change, # 180 tab(s), 1 Refill(s), Pharmacy: [facility], Type 2 diabetes mellitus with hemoglobin A1c goal of less than 7.5% Chronic kidney disease (CKD), 161, cm, 01/17/22 13:27:00 EST, He... Start Date: 01/17/22 Status: Ordered Start: 10-05-2021 metFORMIN 500 mg oral tablet (IR) Dose : 500 mg = 1 tab(s), Oral, BID, Note dosing change, # 180 tab(s), 0 Refill(s), Pharmacy: [facility], Type 2 diabetes mellitus [...] BID, # 180 tab(s), 3 Refill(s), Pharmacy: [facility], DM (diabetes mellitus) Diabetes mellitus, 162.5, cm, 12/22/20 8:17:00 EDT, Height, kg, 12/22/20 8:17:00 EDT, Dosing Weight Start Date: 12/22/20 Stop Date: 12/17/21 Status: Ordered [facility] Medication (20 sources) Start: 04-25-2022 [facility] Medicatio n Oxygen 1-3 L/M via NC, 0 Refill(s), 86.3 Start Date: 04/25/22 Status: Ordered [place]-3 Fatty Acids-Vitamin E 1,000 mg Capsule (3 sources) Start: 05-02-2021 End: 12-10-2023 [place]-3 Fatty Acids-Vitamin E 1,000 mg Capsule Discontinued [...] tab(s), 0 Refill(s), [facility]: [facility] #[id number], 165.1, cm, 05/07/23 14:29:00 EST, Height, kg, [...] 120 tab(s), 0 Refill(s), [facility]: [facility] #[id number], GI bleed, 161.5, cm, 02/23/23 11:48:00 EST, Height, kg, 02/23/23 11:38:00 EST, Dosing Weight Start Date: 02/23/23 Status: Ordered Start: 11-23-2022 End: 01-22-2023 sucralfate 1 g oral tablet D ose : 1 gram(s) = 1 tab(s), Oral, QID, # 120 tab(s), 0 Refill(s), [facility]: [facility] #[id number], GI bleed, 160.5, cm, 01/19/23 11:35:00 EST, Height, kg, 01/19/23 11:35:00 EST, Dosing Weight Start Date: 01/19/23 Status: Ordered Start: 11-18-2022 End: 03-23-2023 take 1 tablet by mouth every six hours Sucralfate 1 gram tablet Discontinued 1 g PO EVERY 6 HOURS 120 30 March 09, 2023 1:19pm March 23, 2023 3:49pm Vitamins A,C,E-Vkqu-Iipior (Preservision Areds) 4,296 mcg-226 mg-90 mg capsule (4 sources) Start: 06-27-2023 End: 11-18-2023 Vitamins A,C,S-Iqgp-Urcwkl (Preservision Areds) 4,296 mcg-226 mg-90 mg capsule Discontinued 1 NMA PO TWICE A DAY June 27, 2023 12:00am November 18, 2023 2:18pm Start: 06-27-2023 take 1 capsule by [facility] twice daily Vitamins A,C,T-Doas-Pivgqr (Preservision Areds) 4,296 mcg-226 mg-90 mg capsule [...] Coronary atherosclerosis; Translations: [Atherosclerotic heart disease of [place] coronary artery without angina pectoris] Chronic Deficiency [...] Respiratory failure; insufficiency; arrest (adult) (20 sources) Nrzqz-cq-gxmylaw respiratory failure; Translations: [Acute and chronic respiratory [...] 1: Proximal - Moderate calcification, Proximal - [place] bend with 50 % Stenosis; CIRCUMFLEX ARTERY: [...] 08-01-2024 Anion gap [Moles/Vol] 12 mmol/L 07-24 [facility] BUN/creatinine ratioOrdered By: Manuela Washburn on 08-01-2024 Urea nitrogen/Creatinine [Mass ratio] 27.6 mg/mg High 12-29 [facility] Carbon dioxide, total [Moles /volume] in Central venous bloodOrdered By: Manuela Washburn on 08-01-2024 CO2 [Moles/Vol] 31.1 mmol/L 21.0-32.0 [facility] Chloride assayOrdered By: Nadege Washburn on 08-01-2024 Chloride [Moles/Vol] 101 mmol/L 98-108 [facility] Glomerular filtration rate ( GFR) estimation/1.73 sq m using serum, plasma, or whole bOrdered By: Manuela Washburn on 08-01-2024 GFR/1.73 sq M.predicted among non-blacks MDRD (S/P/Bld) [Vol rate/Area] 31 mL/min/{1.73_m2} Low >60 [facility] Comment on above: mL/min/1.73m2 CKD-EP I Creatinine Equation (2020) Potassium measurement (mass/ volume)Ordered By: Manuela Washburn on 08-01-2024 Potassium (Unsp spec) [Mass/Vol] 3.7 mmol/L 3.3-5.1 [facility] Renal Profileon 08-01-2024 Albumin [Mass/Vol] 3.9 g/dL Normal 3.4-4.8 [facility] Comment on above: Performed By: #### L 500.3600 ####[facility] [address] [place], [address] BUN/CRE 27.6 RATIO High 10-20 [facility] Comment on above: Performed By: #### L 500.3600 ####[facility] [address] [place], [address] Calcium [Mass/Vol] 9.8 mg/dL Normal 7.6-11.0 [facility] Comment on above: Performed By: #### L 500.3600 ####[facility] [address] [place], [address] Chloride [Moles/Vol] 101 mmol/L Normal 98-108 [facility] Comment on above: Performed By: #### L 500.3600 ####[facility] [address] [place], [address] CO2 [Moles/Vol] 31.1 mmol/L Normal 21.0-32.0 [facility] Comment on above: Performed By: #### L 500.3600 ####[facility] [address] [place], [address] Creatinine [Mass/Vol] 2.08 mg/dL High 0.70-1.20 [facility] Comment on above: Performed By: #### L 500.3600 ####[facility] [address] [place], [address] GAP 12 Normal 5-15 [facility] Comment on above: Performed By: #### L 500.3600 ####[facility] [address] [place], [address] GFR/1.73 sq M.predicted among non-blacks MDRD (S/P/Bld) [Vol rate/Area] 31 mL/min/{1.73_m2} Low >60 [facility] Comment on above: Result Comment: mL/m in/1.73m2 CKD-EPI Creatinine Equation (2020) Performed By: #### L 500.3600 ####[facility] [address] [place], [address] Glucose [Mass/Vol] 162 mg/dL High 70-99 [facility] Comment on above: Performed By: #### L 500.3600 ####[facility] [address] [place], [address] Phosphate [Mass/Vol] 3.3 mg/dL Normal 2.7-4.5 [facility] Comment on above: Performed By: #### L 500.3600 ####[facility] [address] [place], [address] Potassium [Moles/Vol] 3.7 mmol/L Normal 3.3-5.1 [facility] Comment on above: Performed By: #### L 500.3600 ####[facility] [address] [place], [address] Sodium [Moles/Vol] 145 mmol/L Normal 133-145 [facility] Comment on above: Performed By: #### L 500.3600 ####[facility] [address] [place], [address] Urea nitrogen [Mass/Vol] 58 mg/dL High 4-19 [facility] Comment on above: Performed By: #### L 500.3600 ####[facility] [address] [place], [address] Serum creatinine measurement (mass/volume)Ordered By: Manuela Washburn on 08-01-2024 Creatinine [Mass/Vol] 2.08 mg/dL High 0.70-1.20 [facility] Serum glucose measurement (m ass/volume)Ordered By: Manuela Washburn on 08-01-2024 Glucose [Mass/Vol] 162 mg/dL High 70-99 [facility] Serum or plasma albumin [place] urement (mass/volume)Ordered By: Manuela Washburn on 08-01-2024 Albumin [Mass/Vol] 3.9 g/dL 3.4-4.8 [facility] Serum or plasma calcium [place] urement (mass/volume)Ordered By: Manuela Washburn on 08-01-2024 Calcium [Mass/Vol] 9.8 mg/dL 7.6-11.0 [facility] Serum or plasma urea nitroge n measurement (mass/volume)Ordered By: Manuela Washburn on 08-01-2024 Urea nitrogen [Mass/Vol] 58 mg/dL High 4-19 [facility] Sodium levelOrdered By: Carline Washburn on 08-01-2024 Sodium [Moles/Vol] 145 mmol/L 133-145 [facility] Gastroenterology Visit Repor ton 07-14-2024 Gastroenterology Visit Report Normal [facility] Anion gap in Serum or Plasma Ordered By: Manuela Washburn on 07-04-2024 Anion gap [Moles/Vol] 14 mmol/L 5-15 [facility] BUN/creatinine ratioOrdered By: Manuela Washburn on 07-04-2024 Urea nitrogen/Creatinine [Mass ratio] 36.2 mg/mg High 10-20 [facility] Basic Metabolic Profile (BMP )on 07-04-2024 BUN/CRE 36.2 RATIO High 12-29 [facility] Comment on above: Performed By: #### L 500.2500, L509.1000 ####[facility] [address] [place], [address] Calcium [Mass/Vol] 8.9 mg/dL Normal 7.6-11.0 [facility] Comment on above: Performed By: #### L 500.2500, L509.1000 ####[facility] [address] [place], [address] Chloride [Moles/Vol] 108 mmol/L Normal 98-108 [facility] Comment on above: Performed By: #### L 500.2500, L509.1000 ####[facility] [address] [place], [address] CO2 [Moles/Vol] 23.7 mmol/L Normal 21.0-32.0 [facility] Comment on above: Performed By: #### L 500.2500, L509.1000 ####[facility] [address] [place], [address] Creatinine [Mass/Vol] 2.93 mg/dL High 0.70-1.20 [facility] Comment on above: Performed By: #### L 500.2500, L509.1000 ####[facility] [address] [place], [address] GAP 14 Normal 5-15 [facility] Comment on above: Performed By: #### L 500.2500, L509.1000 ####[facility] [address] [place], [address] GFR/1.73 sq M.predicted among non-blacks MDRD (S/P/Bld) [Vol rate/Area] 20 mL/min/{1.73_m2} Low >60 [facility] Comment on above: Result Comment: mL/m in/1.73m2 CKD-EPI Creatinine Equation (2020) Performed By: #### L 500.2500, L509.1000 ####[facility] [address] [place], [address] Glucose [Mass/Vol] 157 mg/dL High 70-99 [facility] Comment on above: Performed By: #### L 500.2500, L509.1000 ####[facility] [address] [place], [address] Potassium [Moles/Vol] 4.1 mmol/L Normal 3.3-5.1 [facility] Comment on above: Performed By: #### L 500.2500, L509.1000 ####[facility] [address] [place], [address] Sodium [Moles/Vol] 145 mmol/L Normal 133-145 [facility] Comment on above: Performed By: #### L 500.2500, L509.1000 ####[facility] [address] [place], [address] Urea nitrogen [Mass/Vol] 106 mg/dL Invalid Interpretation Code 06-28 [facility] Comment on above: Result Comment: Crit ical Result(s) Called at: 1900 by: SCOTT BAILEY TO ??Results read back by same. Performed By: #### L 500.2500, L509.1000 ####[facility] [address] [place], [address] Carbon dioxide, total [Moles /volume] in Central venous bloodOrdered By: Manuela Washburn on 07-04-2024 CO2 [Moles/Vol] 23.7 mmol/L 21.0-32.0 [facility] [facility] Chlor[facility] assayOrdered By: Nadege Washburn on 07-04-2024 Chloride [Moles/Vol] 108 mmol/L 98-108 [facility] Glomerular filtration rate ( GFR) estimation/1.73 sq m using serum, plasma, or whole bOrdered By: Manuela Washburn on 07-04-2024 GFR/1.73 sq M.predicted among non-blacks MDRD (S/P/Bld) [Vol rate/Area] 20 mL/min/{1.73_m2} Low >60 [facility] Comment on above: mL/min/1.73m2 CKD-EP I Creatinine Equation (2020) PTHINon 07-04-2024 PTH 154 pg/mL High 11-61 [facility] Comment on above: Performed By: #### L 500.2500, L509.1000 ####[facility] [address] [place], [address] Potassium measurement (mass/ volume)Ordered By: Manuela Washburn on 07-04-2024 Potassium (Unsp spec) [Mass/Vol] 4.1 mmol/L 3.3-5.1 [facility] Serum creatinine measurement (mass/volume)Ordered By: Manuela Washburn on 07-04-2024 Creatinine [Mass/Vol] 2.93 mg/dL High 0.70-1.20 [facility] Serum glucose measurement (m ass/volume)Ordered By: Manuela Washburn on 07-04-2024 Glucose [Mass/Vol] 157 mg/dL High 70-99 [facility] Serum or plasma calcium elmira urement (mass/volume)Ordered By: Manuela Washburn on 07-04-2024 Calcium [Mass/Vol] 8.9 mg/dL 7.6-11.0 [facility] Serum or plasma urea nitroge n measurement (mass/volume)Ordered By: Manuela Washburn on 07-04-2024 Urea nitrogen [Mass/Vol] 106 mg/dL High 06-28 [facility] Comment on above: Critical Result(s) C alled at: 1900 by: SCOTT BAILEY TO DR. AVITIA Results read back by same. Sodium levelOrdered By: Carline Washburn on 07-04-2024 Sodium [Moles/Vol] 145 mmol/L 133-145 [facility] Basic Metabolic Profile (BMP )on 07-02-2024 BUN Normal 06-28 [facility] Comment on above: Result Comment: Canc elled via OM: Order cancelled - Patient discharged Performed By: #### L 500.2500, L100.0100 ####[facility] [address] [place], [address] BUN/CRE Normal 12-29 [facility] Comment on above: Result Comment: Canc elled via OM: Order cancelled - Patient discharged Performed By: #### L 500.2500, L100.0100 ####[facility] [address] [place], [address] Calcium Normal 7.6-11.0 [facility] Comment on above: Result Comment: Canc elled via OM: Order cancelled - Patient discharged Performed By: #### L 500.2500, L100.0100 ####[facility] [address] [place], [address] CL Normal 98-108 [facility] Comment on above: Result Comment: Canc elled via OM: Order cancelled - Patient discharged Performed By: #### L 500.2500, L100.0100 ####[facility] [address] [place], [address] CO2 Normal 21.0-32.0 [facility] Comment on above: Result Comment: Canc elled via OM: Order cancelled - Patient discharged Performed By: #### L 500.2500, L100.0100 ####[facility] [address] [place], [address] CREAT,SERUM Normal 0.70-1.20 [facility] Comment on above: Result Comment: Canc elled via OM: Order cancelled - Patient discharged Performed By: #### L 500.2500, L100.0100 ####[facility] [address] [place], [address] eGFR Normal >60 [facility] Comment on above: Result Comment: Canc elled via OM: Order cancelled - Patient discharged Performed By: #### L 500.2500, L100.0100 ####[facility] [address] [place], [address] GAP Normal 5-15 [facility] Comment on above: Result Comment: Canc elled via OM: Order cancelled - Patient discharged Performed By: #### L 500.2500, L100.0100 ####[facility] [address] [place], [address] GLU Normal 70-99 [facility] Comment on above: Result Comment: Canc elled via OM: Order cancelled - Patient discharged Performed By: #### L 500.2500, L100.0100 ####[facility] [address] [place], [address] Potassium Normal 3.3-5.1 [facility] Comment on above: Result Comment: Canc elled via OM: Order cancelled - Patient discharged Performed By: #### L 500.2500, L100.0100 ####[facility] [address] [place], [address] Basic Metabolic Profile (BMP) Normal 133-145 [facility] Comment on above: Result Comment: Canc elled via OM: Order cancelled - Patient discharged Performed By: #### L 500.2500, L100.0100 ####[facility] [address] [place], [address] CBC W/Diff, Automatedon 04-2 Absolute Neut Normal 2.0-7.7 [facility] Comment on above: Result Comment: Canc elled via OM: Order cancelled - Patient discharged Performed By: #### L 500.2500, L100.0100 ####[facility] [address] [place], [address] HCT Normal 40-54 [facility] Comment on above: Result Comment: Canc elled via OM: Order cancelled - Patient discharged Performed By: #### L 500.2500, L100.0100 ####[facility] [address] [place], [address] HGB Normal 13.0-16.5 [facility] Comment on above: Result Comment: Canc elled via OM: Order cancelled - Patient discharged Performed By: #### L 500.2500, L100.0100 ####[facility] [address] [place], [address] MCH Normal 27.0-32.0 [facility] Comment on above: Result Comment: Canc elled via OM: Order cancelled - Patient discharged Performed By: #### L 500.2500, L100.0100 ####[facility] [address] [place], [address] MCHC Normal 32-36 [facility] Comment on above: Result Comment: Canc elled via OM: Order cancelled - Patient discharged Performed By: #### L 500.2500, L100.0100 ####[facility] [address] [place], [address] MCV Normal 80-94 [facility] Comment on above: Result Comment: Canc elled via OM: Order cancelled - Patient discharged Performed By: #### L 500.2500, L100.0100 ####[facility] [address] [place], [address] NEUT% Normal 47-70 [facility] Comment on above: Result Comment: Canc elled via OM: Order cancelled - Patient discharged Performed By: #### L 500.2500, L100.0100 ####[facility] [address] [place], [address] PLT Normal 150-450 [facility] Comment on above: Result Comment: Canc elled via OM: Order cancelled - Patient discharged Performed By: #### L 500.2500, L100.0100 ####[facility] [address] [place], [address] RBC Normal 4.6-6.2 [facility] Comment on above: Result Comment: Canc elled via OM: Order cancelled - Patient discharged Performed By: #### L 500.2500, L100.0100 ####[facility] [address] [place], [address] RDW CV Normal 11.6-14.6 [facility] Comment on above: Result Comment: Canc elled via OM: Order cancelled - Patient discharged Performed By: #### L 500.2500, L100.0100 ####[facility] [address] [place], [address] RDW SD Normal 35.1-43.9 [facility] Comment on above: Result Comment: Canc elled via OM: Order cancelled - Patient discharged Performed By: #### L 500.2500, L100.0100 ####[facility] [address] [place], [address] WBC Normal 4.4-11.0 [facility] Comment on above: Result Comment: Canc elled via OM: Order cancelled - Patient discharged Performed By: #### L 500.2500, L100.0100 ####[facility] [address] [place], [address] Basic Metabolic Profile (BMP )on 07-01-2024 BUN Normal 4-19 [facility] Comment on above: Result Comment: Canc elled via OM: Order cancelled - Patient discharged Performed By: #### L 500.2500, L100.0100 ####[facility] [address] [place], [address] BUN/CRE Normal 10-20 [facility] Comment on above: Result Comment: Canc elled via OM: Order cancelled - Patient discharged Performed By: #### L 500.2500, L100.0100 ####[facility] [address] [place], [address] Calcium Normal 7.6-11.0 [facility] Comment on above: Result Comment: Canc elled via OM: Order cancelled - Patient discharged Performed By: #### L 500.2500, L100.0100 ####[facility] [address] [place], [address] CL Normal 98-108 [facility] Comment on above: Result Comment: Canc elled via OM: Order cancelled - Patient discharged Performed By: #### L 500.2500, L100.0100 ####[facility] [address] [place], [address] CO2 Normal 21.0-32.0 [facility] Comment on above: Result Comment: Canc elled via OM: Order cancelled - Patient discharged Performed By: #### L 500.2500, L100.0100 ####[facility] [address] [place], [address] CREAT,SERUM Normal 0.70-1.20 [facility] Comment on above: Result Comment: Canc elled via OM: Order cancelled - Patient discharged Performed By: #### L 500.2500, L100.0100 ####[facility] [address] [place], [address] eGFR Normal >60 [facility] Comment on above: Result Comment: Canc elled via OM: Order cancelled - Patient discharged Performed By: #### L 500.2500, L100.0100 ####[facility] [address] [place], [address] GAP Normal 5-15 [facility] Comment on above: Result Comment: Canc elled via OM: Order cancelled - Patient discharged Performed By: #### L 500.2500, L100.0100 ####[facility] [address] [place], [address] GLU Normal 70-99 [facility] Comment on above: Result Comment: Canc elled via OM: Order cancelled - Patient discharged Performed By: #### L 500.2500, L100.0100 ####[facility] [address] [place], [address] Potassium Normal 3.3-5.1 [facility] Comment on above: Result Comment: Canc elled via OM: Order cancelled - Patient discharged Performed By: #### L 500.2500, L100.0100 ####[facility] [address] [place], [address] Basic Metabolic Profile (BMP) Normal 133-145 [facility] Comment on above: Result Comment: Canc elled via OM: Order cancelled - Patient discharged Performed By: #### L 500.2500, L100.0100 ####[facility] [address] [place], [address] CBC W/Diff, Automatedon 04-2 Absolute Neut Normal 2.0-7.7 [facility] Comment on above: Result Comment: Canc elled via OM: Order cancelled - Patient discharged Performed By: #### L 500.2500, L100.0100 ####[facility] [address] [place], [address] HCT Normal 40-54 [facility] Comment on above: Result Comment: Canc elled via OM: Order cancelled - Patient discharged Performed By: #### L 500.2500, L100.0100 ####[facility] [address] [place], [address] HGB Normal 13.0-16.5 [facility] Comment on above: Result Comment: Canc elled via OM: Order cancelled - Patient discharged Performed By: #### L 500.2500, L100.0100 ####[facility] [address] [place], [address] MCH Normal 27.0-32.0 [facility] Comment on above: Result Comment: Canc elled via OM: Order cancelled - Patient discharged Performed By: #### L 500.2500, L100.0100 ####[facility] [address] [place], [address] MCHC Normal 32-36 [facility] Comment on above: Result Comment: Canc elled via OM: Order cancelled - Patient discharged Performed By: #### L 500.2500, L100.0100 ####[facility] [address] [place], [address] MCV Normal 80-94 [facility] Comment on above: Result Comment: Canc elled via OM: Order cancelled - Patient discharged Performed By: #### L 500.2500, L100.0100 ####[facility] [address] [place], [address] NEUT% Normal 47-70 [facility] Comment on above: Result Comment: Canc elled via OM: Order cancelled - Patient discharged Performed By: #### L 500.2500, L100.0100 ####[facility] [address] [place], [address] PLT Normal 150-450 [facility] Comment on above: Result Comment: Canc elled via OM: Order cancelled - Patient discharged Performed By: #### L 500.2500, L100.0100 ####[facility] [address] [place], [address] RBC Normal 4.6-6.2 [facility] Comment on above: Result Comment: Canc elled via OM: Order cancelled - Patient discharged Performed By: #### L 500.2500, L100.0100 ####[facility] [address] [place], [address] RDW CV Normal 11.6-14.6 [facility] Comment on above: Result Comment: Canc elled via OM: Order cancelled - Patient discharged Performed By: #### L 500.2500, L100.0100 ####[facility] [address] [place], [address] RDW SD Normal 35.1-43.9 [facility] Comment on above: Result Comment: Canc elled via OM: Order cancelled - Patient discharged Performed By: #### L 500.2500, L100.0100 ####[facility] [address] [place], [address] WBC Normal 4.4-11.0 [facility] Comment on above: Result Comment: Canc elled via OM: Order cancelled - Patient discharged Performed By: #### L 500.2500, L100.0100 ####[facility] [address] [place], [address] Absolute lymphocyte countOrd ered By: Yuridia Hernandez on 06-30-2024 Lymphocytes Auto (Unsp spec) [#/Vol] 2.06 10*3/uL 0.83-4.51 [facility] Absolute neutrophil countOrd ered By: Yuridia Hernandez on 06-30-2024 Neutrophils (Bld) [#/Vol] 11.8 10*3/uL High 2.0-7.7 [facility] Anion gap in Serum or Plasma Ordered By: Yuridia Hernandez on 06-30-2024 Anion gap [Moles/Vol] 16 mmol/L High 5-15 [facility] Automated lymphocyte count a s percentage of total leukocytesOrdered By: Yuridia Hernandez on 06-30-2024 Lymphocytes/100 WBC Auto (Unsp spec) 13.2 % Low 19-41 [facility] BUN/creatinine ratioOrdered By: Yuridia Hernandez on 06-30-2024 Urea nitrogen/Creatinine [Mass ratio] 36.0 mg/mg High 10-20 [facility] Basic Metabolic Profile (BMP )on 06-30-2024 BUN Normal 4-19 [facility] Comment on above: Result Comment: Canc elled via OM: Order cancelled - Patient discharged Performed By: #### L 500.2500, L100.0100 ####[facility] [address] [place], [address] BUN/CRE Normal 10-20 [facility] Comment on above: Result Comment: Canc elled via OM: Order cancelled - Patient discharged Performed By: #### L 500.2500, L100.0100 ####[facility] [address] [place], [address] Calcium Normal 7.6-11.0 [facility] Comment on above: Result Comment: Canc elled via OM: Order cancelled - Patient discharged Performed By: #### L 500.2500, L100.0100 ####[place] [facility] [address] [place], [address] CL Normal 98-108 [facility] Comment on above: Result Comment: Canc elled via OM: Order cancelled - Patient discharged Performed By: #### L 500.2500, L100.0100 ####[facility] [address] [place], [address] CO2 Normal 21.0-32.0 [facility] Comment on above: Result Comment: Canc elled via OM: Order cancelled - Patient discharged Performed By: #### L 500.2500, L100.0100 ####[facility] [address] [place], [address] CREAT,SERUM Normal 0.70-1.20 [facility] Comment on above: Result Comment: Canc elled via OM: Order cancelled - Patient discharged Performed By: #### L 500.2500, L100.0100 ####[facility] [address] [place], [address] eGFR Normal >60 [facility] Comment on above: Result Comment: Canc elled via OM: Order cancelled - Patient discharged Performed By: #### L 500.2500, L100.0100 ####[facility] [address] [place], [address] GAP Normal 5-15 [facility] Comment on above: Result Comment: Canc elled via OM: Order cancelled - Patient discharged Performed By: #### L 500.2500, L100.0100 ####[facility] [address] [place], [address] GLU Normal 70-99 [facility] Comment on above: Result Comment: Canc elled via OM: Order cancelled - Patient discharged Performed By: #### L 500.2500, L100.0100 ####[facility] [address] [place], [address] Potassium Normal 3.3-5.1 [facility] Comment on above: Result Comment: Canc elled via OM: Order cancelled - Patient discharged Performed By: #### L 500.2500, L100.0100 ####[facility] [address] [place], [address] Basic Metabolic Profile (BMP) Normal 133-145 [facility] Comment on above: Result Comment: Canc elled via OM: Order cancelled - Patient discharged Performed By: #### L 500.2500, L100.0100 ####[facility] [address] [place], [address] Basophil percentageOrdered B y: Yuridia Hernandez on 06-30-2024 Basophils/100 WBC (Bld) 0.1 % 0-1 [facility] Bilirubin, totalOrdered By: Yuridia Hernandez on 06-30-2024 Bilirubin [Mass/Vol] 0.34 mg/dL 0.00-1.30 [facility] CBC W/Diff, Automatedon -04 12-2024 Absolute Lymph 2.06 X10 3/uL Normal 0.83-4.51 [facility] Comment on above: Performed By: #### L 500.4050, L100.0100, L503.7505 ####[facility] [address] [place], [address] Absolute Neut 11.8 X10 3/uL High 2.0-7.7 [facility] Comment on above: Performed By: #### L 500.4050, L100.0100, L503.7505 ####[facility] [address] [place], [address] Basophils/100 WBC (Bld) 0.1 % Normal 0-1 [facility] Comment on above: Performed By: #### L 500.4050, L100.0100, L503.7505 ####[facility] [address] [place], [address] Eosinophils/100 WBC (Bld) 3.4 % Normal 0-5 [facility] Comment on above: Performed By: #### L 500.4050, L100.0100, L503.7505 ####[facility] [address] [place], [address] Erythrocyte distribution width (RBC) [Ratio] 13.2 % Normal 11.6-14.6 [facility] Comment on above: Performed By: #### L 500.4050, L100.0100, L503.7505 ####[facility] [address] [place], [address] Hematocrit (Bld) [Volume fraction] 29.6 % Low 40-54 [facility] Comment on above: Performed By: #### L 500.4050, L100.0100, L503.7505 ####[facility] [address] [place], [address] Hemoglobin (Bld) [Mass/Vol] 10.0 g/dL Low 13.0-16.5 [facility] Comment on above: Performed By: #### L 500.4050, L100.0100, L503.7505 ####[facility] [address] [place], [address] IG% 0.500 Normal 0.0-0.9 [facility] Comment on above: Result Comment: IG% - Immature Granulocytes (promyelocytes, myelocytes andmetamyelocytes) > 1% indicates that a LEFT SHIFT is Present. Performed By: #### L 500.4050, L100.0100, L503.7505 ####[facility] [address] [place], [address] Lymphocytes/100 WBC (Bld) 13.2 % Low 19-41 [facility] Comment on above: Performed By: #### L 500.4050, L100.0100, L503.7505 ####[facility] [address] [place], [address] MCH (RBC) [Entitic mass] 31.3 pg Normal 27.0-32.0 [facility] Comment on above: Performed By: #### L 500.4050, L100.0100, L503.7505 ####[facility] [address] [place], [address] MCHC (RBC) [Mass/Vol] 33.8 g/dL Normal 32-36 [facility] Comment on above: Performed By: #### L 500.4050, L100.0100, L503.7505 ####[facility] [address] [place], [address] MCV (RBC) [Entitic vol] 92.8 fL Normal 80-94 [facility] Comment on above: Performed By: #### L 500.4050, L100.0100, L503.7505 ####[facility] [address] [place], [address] Monocytes/100 WBC (Bld) 7.5 % Normal 0-10 [facility] Comment on above: Performed By: #### L 500.4050, L100.0100, [id number] ####[facility] [address] [place], [address] Neutrophils/100 WBC (Bld) 75.3 % High 47-70 [facility] Comment on above: Performed By: #### L 500.4050, L100.0100, L503.7505 ####[facility] [address] [place], [address] Nucleated RBC (Bld) [#/Vol] 0 10*3/uL Normal 0-5 [facility] Comment on above: Performed By: #### L 500.4050, L100.0100, L503.7505 ####[facility] [address] [place], [address] Platelet mean volume (Bld) [Entitic vol] 11.1 fL Normal 6.2-12.0 [facility] Comment on above: Performed By: #### L 500.4050, L100.0100, L503.7505 ####[facility] [address] [place], [address] Platelets (Bld) [#/Vol] 174 10*3/uL Normal 150-450 [facility] Comment on above: Performed By: #### L 500.4050, L100.0100, L503.7505 ####[facility] [address] [place], [address] RBC (Bld) [#/Vol] 3.19 10*6/uL Low 4.6-6.2 [facility] Comment on above: Performed By: #### L 500.4050, L100.0100, [id number] ####[facility] [address] [place], [address] RDW SD 44.5 fl High 35.1-43.9 [facility] Comment on above: Performed By: #### L 500.4050, L100.0100, L503.7505 ####[facility] [address] [place], [address] WBC (Bld) [#/Vol] 15.7 10*3/uL High 4.4-11.0 [facility] Comment on above: Performed By: #### L 500.4050, L100.0100, L503.7505 ####[facility] [address] [place], [address] Absolute Neut Normal 2.0-7.7 [facility] Comment on above: Result Comment: Canc elled via OM: Order cancelled - Patient discharged Performed By: #### L 500.2500, L100.0100 ####[facility] [address] [place], [address] HCT Normal 40-54 [facility] Comment on above: Result Comment: Canc elled via OM: Order cancelled - Patient discharged Performed By: #### L 500.2500, L100.0100 ####[facility] [address] [place], [address] HGB Normal 13.0-16.5 [facility] Comment on above: Result Comment: Canc elled via OM: Order cancelled - Patient discharged Performed By: #### L 500.2500, L100.0100 ####[facility] [address] [place], [address] MCH Normal 27.0-32.0 [facility] Comment on above: Result Comment: Canc elled via OM: Order cancelled - Patient discharged Performed By: #### L 500.2500, L100.0100 ####[facility] [address] [place], [address] MCHC Normal 32-36 [facility] Comment on above: Result Comment: Canc elled via OM: Order cancelled - Patient discharged Performed By: #### L 500.2500, L100.0100 ####[facility] [address] [place], [address] MCV Normal 80-94 [facility] Comment on above: Result Comment: Canc elled via OM: Order cancelled - Patient discharged Performed By: #### L 500.2500, L100.0100 ####[facility] [address] [place], [address] NEUT% Normal 47-70 [facility] Comment on above: Result Comment: Canc elled via OM: Order cancelled - Patient discharged Performed By: #### L 500.2500, L100.0100 ####[facility] [address] [place], [address] PLT Normal 150-450 [facility] Comment on above: Result Comment: Canc elled via OM: Order cancelled - Patient discharged Performed By: #### L 500.2500, L100.0100 ####[facility] [address] [place], [address] RBC Normal 4.6-6.2 [facility] Comment on above: Result Comment: Canc elled via OM: Order cancelled - Patient discharged Performed By: #### L 500.2500, L100.0100 ####[facility] [address] [place], [address] RDW CV Normal 11.6-14.6 [facility] Comment on above: Result Comment: Canc elled via OM: Order cancelled - Patient discharged Performed By: #### L 500.2500, L100.0100 ####[facility] [address] [place], [address] RDW SD Normal 35.1-43.9 [facility] Comment on above: Result Comment: Canc elled via OM: Order cancelled - Patient discharged Performed By: #### L 500.2500, L100.0100 ####[facility] [address] [place], [address] WBC Normal 4.4-11.0 [facility] Comment on above: Result Comment: Canc elled via OM: Order cancelled - Patient discharged Performed By: #### L 500.2500, L100.0100 ####[facility] [address] [place], [address] Carbon dioxide, total [Moles /volume] in Central venous bloodOrdered By: Yuridia Hernandez on 06-30-2024 CO2 [Moles/Vol] 22.7 mmol/L 21.0-32.0 [facility] Chest PA and Lateralon 06-30 Chest PA and Lateral Normal [facility] Chloride assayOrdered By: Mike Hernandez on 06-30-2024 Chloride [Moles/Vol] 102 mmol/L 98-108 [facility] Comprehensive Metabolic Prof ilon 06-30-2024 Albumin [Mass/Vol] 3.9 g/dL Normal 3.4-4.8 [facility] Comment on above: Performed By: #### L 500.4050, L100.0100, L503.7505 ####[facility] [address] [place], [address] Albumin/Globulin [Mass ratio] 1.5 {ratio} Normal 0.9-2.4 [facility] Comment on above: Performed By: #### L 500.4050, L100.0100, L503.7505 ####[facility] [address] [place], [address] ALK PHOS 80 U/L Normal 40-129 [facility] Comment on above: Performed By: #### L 500.4050, L100.0100, L503.7505 ####[facility] [address] [place], [address] ALT [Catalytic activity/Vol] 149 U/L High <=46 [facility] Comment on above: Performed By: #### L 500.4050, L100.0100, L503.7505 ####[facility] [address] [place], [address] AST [Catalytic activity/Vol] 61 U/L High <=37 [facility] Comment on above: Performed By: #### L 500.4050, L100.0100, L503.7505 ####[facility] [address] [place], [address] Bilirubin [Mass/Vol] 0.34 mg/dL Normal 0.00-1.30 [facility] Comment on above: Performed By: #### L 500.4050, L100.0100, L503.7505 ####[facility] [address] [place], [address] BUN/CRE 36.0 RATIO High 10-20 [facility] Comment on above: Performed By: #### L 500.4050, L100.0100, L503.7505 ####[facility] [address] [place], [address] Calcium [Mass/Vol] 9.1 mg/dL Normal 7.6-11.0 [facility] Comment on above: Performed By: #### L 500.4050, L100.0100, L503.7505 ####[facility] [address] [place], [address] Chloride [Moles/Vol] 102 mmol/L Normal 98-108 [facility] Comment on above: Performed By: #### L 500.4050, L100.0100, L503.7505 ####[facility] [address] [place], [address] CO2 [Moles/Vol] 22.7 mmol/L Normal 21.0-32.0 [facility] Comment on above: Performed By: #### L 500.4050, L100.0100, L503.7505 ####[facility] [address] [place], [address] Creatinine [Mass/Vol] 3.22 mg/dL High 0.70-1.20 [facility] Comment on above: Performed By: #### L 500.4050, L100.0100, L503.7505 ####[facility] [address] [place], [address] GAP 16 High 5-15 [facility] Comment on above: Performed By: #### L 500.4050, L100.0100, L503.7505 ####[facility] [address] [place], [address] GFR/1.73 sq M.predicted among non-blacks MDRD (S/P/Bld) [Vol rate/Area] 18 mL/min/{1.73_m2} Low >60 [facility] Comment on above: Result Comment: mL/m in/1.73m2 CKD-EPI Creatinine Equation (2020) Performed By: #### L 500.4050, L100.0100, L503.7505 ####[facility] [address] [place], [address] Globulin (S) [Mass/Vol] 2.7 g/dL Normal 2.2-4.2 [facility] Comment on above: Performed By: #### L 500.4050, L100.0100, L503.7505 ####[facility] [address] [place], [address] Glucose [Mass/Vol] 257 mg/dL High 70-99 [facility] Comment on above: Performed By: #### L 500.4050, L100.0100, L503.7505 ####[facility] [address] [place], [address] Potassium [Moles/Vol] 3.6 mmol/L Normal 3.3-5.1 [facility] Comment on above: Performed By: #### L 500.4050, L100.0100, L503.7505 ####[facility] [address] [place], [address] Sodium [Moles/Vol] 141 mmol/L Normal 133-145 [facility] Comment on above: Performed By: #### L 500.4050, L100.0100, L503.7505 ####[facility] [address] [place], [address] T PROT 6.6 g/dL Normal 5.9-8.4 [facility] Comment on above: Performed By: #### L 500.4050, L100.0100, L503.7505 ####[facility] [address] [place], [address] Urea nitrogen [Mass/Vol] 116 mg/dL Invalid Interpretation Code 06-28 [facility] Comment on above: Result Comment: Crit ical Result(s) Called at: 2129 by:??DR.C GARCIA Resultsread back by same. Performed By: #### L 500.4050, L100.0100, L503.7505 ####[facility] [address] [place], [place], [id number] Eosinophil percentageOrdered By: Yuridia Hernandez on 06-30-2024 Eosinophils/100 WBC (Bld) 3.4 % 0-5 [facility] Erythrocyte distribution wid th ratioOrdered By: Yuridia Hernandez on 06-30-2024 Erythrocyte distribution width (RBC) [Ratio] 13.2 % 11.6-14.6 [facility] Erythrocyte distribution wid th standard deviationOrdered By: Yuridia Hernandez on 06-30-2024 Erythrocyte distribution width (RBC) [Ratio] 44.5 fl High 35.1-43.9 [facility] Glomerular filtration rate ( GFR) estimation/1.73 sq m using serum, plasma, or whole bOrdered By: Yuridia Hernandez on 06-30-2024 GFR/1.73 sq M.predicted among non-blacks MDRD (S/P/Bld) [Vol rate/Area] 18 mL/min/{1.73_m2} Low >60 [facility] Comment on above: mL/min/1.73m2 CKD-EP I Creatinine Equation (2020) Hematocrit Auto (Bld) [Volum e fraction]Ordered By: Yuridia Hernandez on 06-30-2024 Hematocrit (Bld) [Volume fraction] 29.6 % Low 40-54 [facility] Hemoglobin measurementOrdere d By: Yuridia Hernandez on 06-30-2024 Hemoglobin (Bld) [Mass/Vol] 10.0 g/dL Low 13.0-16.5 [facility] Immature granulocytes/100 WB C Auto (Bld)Ordered By: Yuridia Hernandez on 06-30-2024 Immature granulocytes/100 WBC (Bld) 0.500 % 0.0-0.9 [facility] Comment on above: IG% - Immature Granu locytes (promyelocytes, myelocytes and metamyelocytes) > 1% indicates that a LEFT SHIFT is Present. L503.7505on 06-30-2024 Natriuretic peptide B (Bld) [Mass/Vol] 3454 pg/mL High <=1800 [facility] Comment on above: Result Comment: Hear t Failure Unlikely: < 300 pg/mLHeart Failure Likely< 50 Years: > 450 pg/mL50-75 Years: > 900 pg/mL>75 Years: > 1800 pg/mL Performed By: #### L 500.4050, L100.0100, L503.7505 ####[facility] [address] [place], [place], [address] Laboratory - Chemistry and C hemistry - challengeOrdered By: Yuridia Hernandez on 06-30-2024 AST [Catalytic activity/Vol] 61 U/L High <38 [facility] MCV (mean corpuscular volume ) determinationOrdered By: Yuridia Hernandez on 06-30-2024 MCV (RBC) [Entitic vol] 92.8 fL 80-94 [facility] Mean corpuscular hemoglobin (MCH) determinationOrdered By: Yuridia Hernandez on 06-30-2024 MCH (RBC) [Entitic mass] 31.3 pg 27.0-32.0 [facility] Mean corpuscular hemoglobin concentration (MCHC) determinationOrdered By: Yuridia Hernandez on 06-30-2024 MCHC (RBC) [Mass/Vol] 33.8 g/dL 32-36 [facility] Mean platelet volume determi nationOrdered By: Yuridia Hernandez on 06-30-2024 Platelet mean volume (Bld) [Entitic vol] 11.1 fL 6.2-12.0 [facility] Monocyte percentageOrdered B y: Yuridia Hernandez on 06-30-2024 Monocytes/100 WBC (Bld) 7.5 % 0-10 [facility] Natriuretic peptide.B prohor chris N-Terminal [Mass/volume] in Serum or PlasmaOrdered By: Yuridia Hernandez on 06-30-2024 Natriuretic peptide.B prohormone N-Terminal [Mass/Vol] 3454 pg/mL High <1800 [facility] Comment on above: Heart Failure Unlike ly: < 300 pg/mLHeart Failure Likely< 50 Years: > 450 pg/mL50-75 Years: > 900 pg/mL>75 Years: > 1800 pg/mL Neutrophil percentageOrdered By: Yuridia Hernandez on 06-30-2024 Neutrophils/100 WBC (Bld) 75.3 % High 47-70 [facility] Nucleated red blood cell per centageOrdered By: Yuridia Hernandez on 06-30-2024 Nucleated RBC/100 WBC (Bld) [Ratio] 0 % 0-5 [facility] Platelet countOrdered By: Mike Hernandez on 06-30-2024 Platelets (Bld) [#/Vol] 174 10*3/uL 150-450 [facility] Potassium measurement (mass/ volume)Ordered By: Yuridia Hernandez on 06-30-2024 Potassium (Unsp spec) [Mass/Vol] 3.6 mmol/L 3.3-5.1 [facility] RBC Auto (Bld) [#/Vol]Ordere d By: Yuridia Hernandez on 06-30-2024 RBC (Bld) [#/Vol] 3.19 10*6/uL Low 4.6-6.2 [facility] Serum creatinine measurement (mass/volume)Ordered By: Yuridia Hernandez on 06-30-2024 Creatinine [Mass/Vol] 3.22 mg/dL High 0.70-1.20 [facility] Serum globulin measurementOr dered By: Yuridia Hernandez on 06-30-2024 Globulin (S) [Mass/Vol] 2.7 g/dL 2.2-4.2 [facility] Serum glucose measurement (m ass/volume)Ordered By: Yuridia Hernandez on 06-30-2024 Glucose [Mass/Vol] 257 mg/dL High 70-99 [facility] Serum or plasma alanine duque otransferase (ALT) measurementOrdered By: Yuridia Hernandez on 06-30-2024 ALT [Catalytic activity/Vol] 149 U/L High <47 [facility] Serum or plasma albumin elmira urement (mass/volume)Ordered By: Yuridia Hernandez on 06-30-2024 Albumin [Mass/Vol] 3.9 g/dL 3.4-4.8 [facility] Serum or plasma albumin/glob ulin mass ratioOrdered By: Yuridia Hernandez on 06-30-2024 Albumin/Globulin [Mass ratio] 1.5 {ratio} 0.9-2.4 [facility] Serum or plasma alkaline lissa sphatase measurementOrdered By: Yuridia Hernandez on 06-30-2024 ALP [Catalytic activity/Vol] 80 U/L 40-129 [facility] Serum or plasma calcium elmira urement (mass/volume)Ordered By: Yuridia Hernandez on 06-30-2024 Calcium [Mass/Vol] 9.1 mg/dL 7.6-11.0 [facility] Serum or plasma urea nitroge n measurement (mass/volume)Ordered By: Yuridia Hernandez on 06-30-2024 Urea nitrogen [Mass/Vol] 116 mg/dL High 06-28 [facility] Comment on above: Critical Result(s) C alled at: 2130 by: DR.C GARCIA Results read back by same. Sodium levelOrdered By: Yuridia Hernandez on 06-30-2024 Sodium [Moles/Vol] 141 mmol/L 133-145 [facility] Total proteinOrdered By: Cecilia Hernandez on 06-30-2024 Protein [Mass/Vol] 6.6 g/dL 5.9-8.4 [facility] White blood cell (WBC) count Ordered By: Yuridia Hernandez on 06-30-2024 WBC (Bld) [#/Vol] 15.7 10*3/uL High 4.4-11.0 [facility] Basic Metabolic Profile (BMP )on 06-29-2024 BUN Normal 06-28 [facility] Comment on above: Result Comment: Canc elled via OM: Order cancelled - Patient discharged Performed By: #### L 500.2500, L100.0100 ####[facility] [address] [place], [address] BUN/CRE Normal 12-29 [facility] Comment on above: Result Comment: Canc elled via OM: Order cancelled - Patient discharged Performed By: #### L 500.2500, L100.0100 ####[facility] [address] [place], [address] Calcium Normal 7.6-11.0 [facility] Comment on above: Result Comment: Canc elled via OM: Order cancelled - Patient discharged Performed By: #### L 500.2500, L100.0100 ####[facility] [address] [place], [address] CL Normal 98-108 [facility] Comment on above: Result Comment: Canc elled via OM: Order cancelled - Patient discharged Performed By: #### L 500.2500, L100.0100 ####[facility] [address] [place], [address] CO2 Normal 21.0-32.0 [facility] Comment on above: Result Comment: Canc elled via OM: Order cancelled - Patient discharged Performed By: #### L 500.2500, L100.0100 ####[facility] [address] [place], [address] CREAT,SERUM Normal 0.70-1.20 [facility] Comment on above: Result Comment: Canc elled via OM: Order cancelled - Patient discharged Performed By: #### L 500.2500, L100.0100 ####[facility] [address] [place], [address] eGFR Normal >60 [facility] Comment on above: Result Comment: Canc elled via OM: Order cancelled - Patient discharged Performed By: #### L 500.2500, L100.0100 ####[facility] [address] [place], [address] GAP Normal 5-15 [facility] Comment on above: Result Comment: Canc elled via OM: Order cancelled - Patient discharged Performed By: #### L 500.2500, L100.0100 ####[facility] [address] [place], [address] GLU Normal 70-99 [facility] Comment on above: Result Comment: Canc elled via OM: Order cancelled - Patient discharged Performed By: #### L 500.2500, L100.0100 ####[facility] [address] [place], [address] Potassium Normal 3.3-5.1 [facility] Comment on above: Result Comment: Canc elled via OM: Order cancelled - Patient discharged Performed By: #### L 500.2500, L100.0100 ####[facility] [address] [place], [address] Basic Metabolic Profile (BMP) Normal 133-145 [facility] Comment on above: Result Comment: Canc elled via OM: Order cancelled - Patient discharged Performed By: #### L 500.2500, L100.0100 ####[facility] [address] [place], [address] CBC W/Diff, Automatedon 04-2 0-2024 Absolute Neut Normal 2.0-7.7 [facility] Comment on above: Result Comment: Canc elled via OM: Order cancelled - Patient discharged Performed By: #### L 500.2500, L100.0100 ####[facility] [address] [place], [address] HCT Normal 40-54 [facility] Comment on above: Result Comment: Canc elled via OM: Order cancelled - Patient discharged Performed By: #### L 500.2500, L100.0100 ####[facility] [address] [place], [address] HGB Normal 13.0-16.5 [facility] Comment on above: Result Comment: Canc elled via OM: Order cancelled - Patient discharged Performed By: #### L 500.2500, L100.0100 ####[facility] [address] [place], [address] MCH Normal 27.0-32.0 [facility] Comment on above: Result Comment: Canc elled via OM: Order cancelled - Patient discharged Performed By: #### L 500.2500, L100.0100 ####[facility] [address] [place], [address] MCHC Normal 32-36 [facility] Comment on above: Result Comment: Canc elled via OM: Order cancelled - Patient discharged Performed By: #### L 500.2500, L100.0100 ####[facility] [address] [place], [address] MCV Normal 80-94 [facility] Comment on above: Result Comment: Canc elled via OM: Order cancelled - Patient discharged Performed By: #### L 500.2500, L100.0100 ####[facility] [address] [place], [address] NEUT% Normal 47-70 [facility] Comment on above: Result Comment: Canc elled via OM: Order cancelled - Patient discharged Performed By: #### L 500.2500, L100.0100 ####[facility] [address] [place], [address] PLT Normal 150-450 [facility] Comment on above: Result Comment: Canc elled via OM: Order cancelled - Patient discharged Performed By: #### L 500.2500, L100.0100 ####[facility] [address] [place], [address] RBC Normal 4.6-6.2 [facility] Comment on above: Result Comment: Canc elled via OM: Order cancelled - Patient discharged Performed By: #### L 500.2500, L100.0100 ####[facility] [address] [place], [address] RDW CV Normal 11.6-14.6 [facility] Comment on above: Result Comment: Canc elled via OM: Order cancelled - Patient discharged Performed By: #### L 500.2500, L100.0100 ####[facility] [address] [place], [address] RDW SD Normal 35.1-43.9 [facility] Comment on above: Result Comment: Canc elled via OM: Order cancelled - Patient discharged Performed By: #### L 500.2500, L100.0100 ####[facility] [address] [place], [address] WBC Normal 4.4-11.0 [facility] Comment on above: Result Comment: Canc elled via OM: Order cancelled - Patient discharged Performed By: #### L 500.2500, L100.0100 ####[facility] [address] [place], [address] Basic Metabolic Profile (BMP )on 06-28-2024 BUN Normal 4-19 [facility] Comment on above: Result Comment: Canc elled via OM: Order cancelled - Patient discharged Performed By: #### L 500.2500, L100.0100 ####[facility] [address] [place], [address] BUN/CRE Normal 10-20 [facility] Comment on above: Result Comment: Canc elled via OM: Order cancelled - Patient discharged Performed By: #### L 500.2500, L100.0100 ####[facility] [address] [place], [address] Calcium Normal 7.6-11.0 [facility] Comment on above: Result Comment: Canc elled via OM: Order cancelled - Patient discharged Performed By: #### L 500.2500, L100.0100 ####[facility] [address] [place], [address] CL Normal 98-108 [facility] Comment on above: Result Comment: Canc elled via OM: Order cancelled - Patient discharged Performed By: #### L 500.2500, L100.0100 ####[facility] [address] [place], [address] CO2 Normal 21.0-32.0 [facility] Comment on above: Result Comment: Canc elled via OM: Order cancelled - Patient discharged Performed By: #### L 500.2500, L100.0100 ####[facility] [address] [place], [address] CREAT,SERUM Normal 0.70-1.20 [facility] Comment on above: Result Comment: Canc elled via OM: Order cancelled - Patient discharged Performed By: #### L 500.2500, L100.0100 ####[facility] [address] [place], [address] eGFR Normal >60 [facility] Comment on above: Result Comment: Canc elled via OM: Order cancelled - Patient discharged Performed By: #### L 500.2500, L100.0100 ####[facility] [address] [place], [address] GAP Normal 5-15 [facility] Comment on above: Result Comment: Canc elled via OM: Order cancelled - Patient discharged Performed By: #### L 500.2500, L100.0100 ####[facility] [address] [place], [address] GLU Normal 70-99 [facility] Comment on above: Result Comment: Canc elled via OM: Order cancelled - Patient discharged Performed By: #### L 500.2500, L100.0100 ####[facility] [address] [place], [address] Potassium Normal 3.3-5.1 [facility] Comment on above: Result Comment: Canc elled via OM: Order cancelled - Patient discharged Performed By: #### L 500.2500, L100.0100 ####[facility] [address] [place], [address] Basic Metabolic Profile (BMP) Normal 133-145 [facility] Comment on above: Result Comment: Canc elled via OM: Order cancelled - Patient discharged Performed By: #### L 500.2500, L100.0100 ####[facility] [address] [place], [address] CBC W/Diff, Automatedon 04-1 Absolute Neut Normal 2.0-7.7 [facility] Comment on above: Result Comment: Canc elled via OM: Order cancelled - Patient discharged Performed By: #### L 500.2500, L100.0100 ####[facility] [address] [place], [address] HCT Normal 40-54 [facility] Comment on above: Result Comment: Canc elled via OM: Order cancelled - Patient discharged Performed By: #### L 500.2500, L100.0100 ####[facility] [address] [place], [address] HGB Normal 13.0-16.5 [facility] Comment on above: Result Comment: Canc elled via OM: Order cancelled - Patient discharged Performed By: #### L 500.2500, L100.0100 ####[facility] [address] [place], [address] MCH Normal 27.0-32.0 [facility] Comment on above: Result Comment: Canc elled via OM: Order cancelled - Patient discharged Performed By: #### L 500.2500, L100.0100 ####[facility] [address] [place], [address] MCHC Normal 32-36 [facility] Comment on above: Result Comment: Canc elled via OM: Order cancelled - Patient discharged Performed By: #### L 500.2500, L100.0100 ####[facility] [address] [place], [address] MCV Normal 80-94 [facility] Comment on above: Result Comment: Canc elled via OM: Order cancelled - Patient discharged Performed By: #### L 500.2500, L100.0100 ####[facility] [address] [place], [address] NEUT% Normal 47-70 [facility] Comment on above: Result Comment: Canc elled via OM: Order cancelled - Patient discharged Performed By: #### L 500.2500, L100.0100 ####[facility] [address] [place], [address] PLT Normal 150-450 [facility] Comment on above: Result Comment: Canc elled via OM: Order cancelled - Patient discharged Performed By: #### L 500.2500, L100.0100 ####[facility] [address] [place], [address] RBC Normal 4.6-6.2 [facility] Comment on above: Result Comment: Canc elled via OM: Order cancelled - Patient discharged Performed By: #### L 500.2500, L100.0100 ####[facility] [address] [place], [address] RDW CV Normal 11.6-14.6 [facility] Comment on above: Result Comment: Canc elled via OM: Order cancelled - Patient discharged Performed By: #### L 500.2500, L100.0100 ####[facility] [address] [place], [address] RDW SD Normal 35.1-43.9 [facility] Comment on above: Result Comment: Canc elled via OM: Order cancelled - Patient discharged Performed By: #### L 500.2500, L100.0100 ####[facility] [address] [place], [address] WBC Normal 4.4-11.0 [facility] Comment on above: Result Comment: Canc elled via OM: Order cancelled - Patient discharged Performed By: #### L 500.2500, L100.0100 ####[facility] [address] [place], [address] Basic Metabolic Profile (BMP )on 06-27-2024 BUN Normal 4-19 [facility] Comment on above: Result Comment: Canc elled via OM: Order cancelled - Patient discharged Performed By: #### L 500.2500, L100.0100 ####[facility] [address] [place], [address] BUN/CRE Normal 10-20 [facility] Comment on above: Result Comment: Canc elled via OM: Order cancelled - Patient discharged Performed By: #### L 500.2500, L100.0100 ####[facility] [address] [place], [address] Calcium Normal 7.6-11.0 [facility] Comment on above: Result Comment: Canc elled via OM: Order cancelled - Patient discharged Performed By: #### L 500.2500, L100.0100 ####[facility] [address] [place], [address] CL Normal 98-108 [facility] Comment on above: Result Comment: Canc elled via OM: Order cancelled - Patient discharged Performed By: #### L 500.2500, L100.0100 ####[facility] [address] [place], [address] CO2 Normal 21.0-32.0 [facility] Comment on above: Result Comment: Canc elled via OM: Order cancelled - Patient discharged Performed By: #### L 500.2500, L100.0100 ####[facility] [address] [place], [address] CREAT,SERUM Normal 0.70-1.20 [facility] Comment on above: Result Comment: Canc elled via OM: Order cancelled - Patient discharged Performed By: #### L 500.2500, L100.0100 ####[facility] [address] [place], [address] eGFR Normal >60 [facility] Comment on above: Result Comment: Canc elled via OM: Order cancelled - Patient discharged Performed By: #### L 500.2500, L100.0100 ####[facility] [address] [place], [address] GAP Normal 5-15 [facility] Comment on above: Result Comment: Canc elled via OM: Order cancelled - Patient discharged Performed By: #### L 500.2500, L100.0100 ####[facility] [address] [place], [address] GLU Normal 70-99 [facility] Comment on above: Result Comment: Canc elled via OM: Order cancelled - Patient discharged Performed By: #### L 500.2500, L100.0100 ####[facility] [address] [place], [address] Potassium Normal 3.3-5.1 [facility] Comment on above: Result Comment: Canc elled via OM: Order cancelled - Patient discharged Performed By: #### L 500.2500, L100.0100 ####[facility] [address] [place], [address] Basic Metabolic Profile (BMP) Normal 133-145 [facility] Comment on above: Result Comment: Canc elled via OM: Order cancelled - Patient discharged Performed By: #### L 500.2500, L100.0100 ####[facility] [address] [place], [address] CBC W/Diff, Automatedon 06-10 Absolute Neut Normal 2.0-7.7 [facility] Comment on above: Result Comment: Canc elled via OM: Order cancelled - Patient discharged Performed By: #### L 500.2500, L100.0100 ####[facility] [address] [place], [address] HCT Normal 40-54 [facility] Comment on above: Result Comment: Canc elled via OM: Order cancelled - Patient discharged Performed By: #### L 500.2500, L100.0100 ####[facility] [address] [place], [address] HGB Normal 13.0-16.5 [facility] Comment on above: Result Comment: Canc elled via OM: Order cancelled - Patient discharged Performed By: #### L 500.2500, L100.0100 ####[facility] [address] [place], [address] MCH Normal 27.0-32.0 [facility] Comment on above: Result Comment: Canc elled via OM: Order cancelled - Patient discharged Performed By: #### L 500.2500, L100.0100 ####[facility] [address] [place], [address] MCHC Normal 32-36 [facility] Comment on above: Result Comment: Canc elled via OM: Order cancelled - Patient discharged Performed By: #### L 500.2500, L100.0100 ####[facility] [address] [place], [address] MCV Normal 80-94 [facility] Comment on above: Result Comment: Canc elled via OM: Order cancelled - Patient discharged Performed By: #### L 500.2500, L100.0100 ####[facility] [address] [place], [address] NEUT% Normal 47-70 [facility] Comment on above: Result Comment: Canc elled via OM: Order cancelled - Patient discharged Performed By: #### L 500.2500, L100.0100 ####[facility] [address] [place], [address] PLT Normal 150-450 [facility] Comment on above: Result Comment: Canc elled via OM: Order cancelled - Patient discharged Performed By: #### L 500.2500, L100.0100 ####[facility] [address] [place], [address] RBC Normal 4.6-6.2 [facility] Comment on above: Result Comment: Canc elled via OM: Order cancelled - Patient discharged Performed By: #### L 500.2500, L100.0100 ####[facility] [address] [place], [address] RDW CV Normal 11.6-14.6 [facility] Comment on above: Result Comment: Canc elled via OM: Order cancelled - Patient discharged Performed By: #### L 500.2500, L100.0100 ####[facility] [address] [place], [address] RDW SD Normal 35.1-43.9 [facility] Comment on above: Result Comment: Canc elled via OM: Order cancelled - Patient discharged Performed By: #### L 500.2500, L100.0100 ####[facility] [address] [place], [address] WBC Normal 4.4-11.0 [facility] Comment on above: Result Comment: Canc elled via OM: Order cancelled - Patient discharged Performed By: #### L 500.2500, L100.0100 ####[facility] [address] [place], [address] Basic Metabolic Profile (BMP )on 06-26-2024 BUN Normal 4-19 [facility] Comment on above: Result Comment: Canc elled via OM: Order cancelled - Patient discharged Performed By: #### L 100.0100, L500.2500 ####[facility] [address] [place], [address] BUN/CRE Normal 10-20 [facility] Comment on above: Result Comment: Canc elled via OM: Order cancelled - Patient discharged Performed By: #### L 100.0100, L500.2500 ####[facility] [address] [place], [address] Calcium Normal 7.6-11.0 [facility] Comment on above: Result Comment: Canc elled via OM: Order cancelled - Patient discharged Performed By: #### L 100.0100, L500.2500 ####[facility] [address] [place], [address] CL Normal 98-108 [facility] Comment on above: Result Comment: Canc elled via OM: Order cancelled - Patient discharged Performed By: #### L 100.0100, L500.2500 ####[facility] [address] [place], [address] CO2 Normal 21.0-32.0 [facility] Comment on above: Result Comment: Canc elled via OM: Order cancelled - Patient discharged Performed By: #### L 100.0100, L500.2500 ####[facility] [address] [place], [address] CREAT,SERUM Normal 0.70-1.20 [facility] Comment on above: Result Comment: Canc elled via OM: Order cancelled - Patient discharged Performed By: #### L 100.0100, L500.2500 ####[facility] [address] [place], [address] eGFR Normal >60 [facility] Comment on above: Result Comment: Canc elled via OM: Order cancelled - Patient discharged Performed By: #### L 100.0100, L500.2500 ####[facility] [address] [place], [address] GAP Normal 5-15 [facility] Comment on above: Result Comment: Canc elled via OM: Order cancelled - Patient discharged Performed By: #### L 100.0100, L500.2500 ####[facility] [address] [place], [address] GLU Normal 70-99 [facility] Comment on above: Result Comment: Canc elled via OM: Order cancelled - Patient discharged Performed By: #### L 100.0100, L500.2500 ####[facility] [address] [place], [address] Potassium Normal 3.3-5.1 [facility] Comment on above: Result Comment: Canc elled via OM: Order cancelled - Patient discharged Performed By: #### L 100.0100, L500.2500 ####[facility] [address] [place], [address] Basic Metabolic Profile (BMP) Normal 133-145 [facility] Comment on above: Result Comment: Canc elled via OM: Order cancelled - Patient discharged Performed By: #### L 100.0100, L500.2500 ####[facility] [address] [place], [address] CBC W/Diff, Automatedon 04- Absolute Neut Normal 2.0-7.7 [facility] Comment on above: Result Comment: Canc elled via OM: Order cancelled - Patient discharged Performed By: #### L 100.0100, L500.2500 ####[facility] [address] [place], [address] HCT Normal 40-54 [facility] Comment on above: Result Comment: Canc elled via OM: Order cancelled - Patient discharged Performed By: #### L 100.0100, L500.2500 ####[facility] [address] [place], [address] HGB Normal 13.0-16.5 [facility] Comment on above: Result Comment: Canc elled via OM: Order cancelled - Patient discharged Performed By: #### L 100.0100, L500.2500 ####[facility] [address] [place], [address] MCH Normal 27.0-32.0 [facility] Comment on above: Result Comment: Canc elled via OM: Order cancelled - Patient discharged Performed By: #### L 100.0100, L500.2500 ####[facility] [address] [place], [address] MCHC Normal 32-36 [facility] Comment on above: Result Comment: Canc elled via OM: Order cancelled - Patient discharged Performed By: #### L 100.0100, L500.2500 ####[facility] [address] [place], [address] MCV Normal 80-94 [facility] Comment on above: Result Comment: Canc elled via OM: Order cancelled - Patient discharged Performed By: #### L 100.0100, L500.2500 ####[facility] [address] [place], [address] NEUT% Normal 47-70 [facility] Comment on above: Result Comment: Canc elled via OM: Order cancelled - Patient discharged Performed By: #### L 100.0100, L500.2500 ####[facility] [address] [place], [address] PLT Normal 150-450 [facility] Comment on above: Result Comment: Canc elled via OM: Order cancelled - Patient discharged Performed By: #### L 100.0100, L500.2500 ####[facility] [address] [place], [address] RBC Normal 4.6-6.2 [facility] Comment on above: Result Comment: Canc elled via OM: Order cancelled - Patient discharged Performed By: #### L 100.0100, L500.2500 ####[facility] [address] [place], [address] RDW CV Normal 11.6-14.6 [facility] Comment on above: Result Comment: Canc elled via OM: Order cancelled - Patient discharged Performed By: #### L 100.0100, L500.2500 ####[facility] [address] [place], [address] RDW SD Normal 35.1-43.9 [facility] Comment on above: Result Comment: Canc elled via OM: Order cancelled - Patient discharged Performed By: #### L 100.0100, L500.2500 ####[facility] [address] [place], [address] WBC Normal 4.4-11.0 [facility] Comment on above: Result Comment: Canc elled via OM: Order cancelled - Patient discharged Performed By: #### L 100.0100, L500.2500 ####[facility] [address] [place], [address] Absolute lymphocyte countOrd ered By: Sarai Alcantara on 06-25-2024 Lymphocytes Auto (Unsp spec) [#/Vol] 1.06 10*3/uL 0.83-4.51 [facility] Absolute neutrophil countOrd ered By: Sarai Alcantara on 06-25-2024 Neutrophils (Bld) [#/Vol] 7.0 10*3/uL 2.0-7.7 [facility] Anion gap in Serum or Plasma Ordered By: Sarai Alcantara on 06-25-2024 Anion gap [Moles/Vol] 14 mmol/L 5-15 [facility] Automated lymphocyte count a s percentage of total leukocytesOrdered By: Sarai Alcantara on 06-25-2024 Lymphocytes/100 WBC Auto (Unsp spec) 12.3 % Low 19-41 [facility] BUN/creatinine ratioOrdered By: Sarai Alcantara on 06-25-2024 Urea nitrogen/Creatinine [Mass ratio] 38.9 mg/mg High 10-20 [facility] Basic Metabolic Profile (BMP )on 06-25-2024 Urea nitrogen [Mass/Vol] 110 mg/dL Invalid Interpretation Code 4-19 [facility] Comment on above: Result Comment: Crit ical Result(s) Called at 0852: by:?? DIDIER DUENAS. Results read back by same.Critical Result(s) Called at: by:??Results read back bysame. AMENDED REPORT 06/25/[address] BUN previously reported as: 110 *H mg/dLCritical Result(s) Called at 0852: by:?? DIDIER DUENAS. Results read back by same. Performed By: #### L 500.2500, L100.0100 ####[facility] [address] [place], [address] Basophil percentageOrdered B y: Sarai Alcantara on 06-25-2024 Basophils/100 WBC (Bld) 0.1 % 0-1 [facility] Bedside Glucoseon 06-25-2024 FINGERSTICK GLU 237 mg/dL High 74-106 [facility] Comment on above: Result Comment: MYKE GEMENT OF PATIENT CARE PER NURSING PROTOCOL Performed By: #### L 501.080 ####[facility] [address] [place], [address] FINGERSTICK GLU 161 mg/dL High 74-106 [facility] Comment on above: Result Comment: MYKE GEMENT OF PATIENT CARE PER NURSING PROTOCOL Performed By: #### L 501.080 ####[facility] [address] [place], [address] FINGERSTICK GLU 118 mg/dL High 74-106 [facility] Comment on above: Result Comment: MYKE GEMENT OF PATIENT CARE PER NURSING PROTOCOL Performed By: #### L 501.080 ####[facility] [address] [place], [address] CBC W/Diff, Automatedon 04 Absolute Lymph 1.06 X10 3/uL Normal 0.83-4.51 [facility] Comment on above: Performed By: #### L 500.2500, L100.0100 ####[facility] [address] [place], [address] Absolute Neut 7.0 X10 3/uL Normal 2.0-7.7 [facility] Comment on above: Performed By: #### L 500.2500, L100.0100 ####[facility] [address] [place], [address] Basophils/100 WBC (Bld) 0.1 % Normal 0-1 [facility] Comment on above: Performed By: #### L 500.2500, L100.0100 ####[facility] [address] [place], [address] Eosinophils/100 WBC (Bld) 0.3 % Normal 0-5 [facility] Comment on above: Performed By: #### L 500.2500, L100.0100 ####[facility] [address] [place], [address] Erythrocyte distribution width (RBC) [Ratio] 13.7 % Normal 11.6-14.6 [facility] Comment on above: Performed By: #### L 500.2500, L100.0100 ####[facility] [address] [place], [address] Hematocrit (Bld) [Volume fraction] 23.4 % Low 40-54 [facility] Comment on above: Performed By: #### L 500.2500, L100.0100 ####[facility] [address] [place], [address] Hemoglobin (Bld) [Mass/Vol] 8.0 g/dL Low 13.0-16.5 [facility] Comment on above: Performed By: #### L 500.2500, L100.0100 ####[facility] [address] [place], [address] IG% 0.300 Normal 0.0-0.9 [facility] Comment on above: Result Comment: IG% - Immature Granulocytes (promyelocytes, myelocytes andmetamyelocytes) > 1% indicates that a LEFT SHIFT is Present. Performed By: #### L 500.2500, L100.0100 ####[facility] [address] [place], [address] Lymphocytes/100 WBC (Bld) 12.3 % Low 19-41 [facility] Comment on above: Performed By: #### L 500.2500, L100.0100 ####[facility] [address] [place], [address] MCH (RBC) [Entitic mass] 31.3 pg Normal 27.0-32.0 [facility] Comment on above: Performed By: #### L 500.2500, L100.0100 ####[facility] [address] [place], [address] MCHC (RBC) [Mass/Vol] 34.2 g/dL Normal 32-36 [facility] Comment on above: Performed By: #### L 500.2500, L100.0100 ####[facility] [address] [place], [address] MCV (RBC) [Entitic vol] 91.4 fL Normal 80-94 [facility] Comment on above: Performed By: #### L 500.2500, L100.0100 ####[facility] [address] [place], [address] Monocytes/100 WBC (Bld) 6.1 % Normal 0-10 [facility] Comment on above: Performed By: #### L 500.2500, L100.0100 ####[facility] [address] [place], [address] Neutrophils/100 WBC (Bld) 80.9 % High 47-70 [facility] Comment on above: Performed By: #### L 500.2500, L100.0100 ####[facility] [address] [place], [address] Nucleated RBC (Bld) [#/Vol] 0 10*3/uL Normal 0-5 [facility] Comment on above: Performed By: #### L 500.2500, L100.0100 ####[facility] [address] [place], [address] Platelet mean volume (Bld) [Entitic vol] 11.0 fL Normal 6.2-12.0 [facility] Comment on above: Performed By: #### L 500.2500, L100.0100 ####[facility] [address] [place], [address] Platelets (Bld) [#/Vol] 94 10*3/uL Low 150-450 [facility] Comment on above: Performed By: #### L 500.2500, L100.0100 ####[facility] [address] [place], [address] RBC (Bld) [#/Vol] 2.56 10*6/uL Low 4.6-6.2 [facility] Comment on above: Performed By: #### L 500.2500, L100.0100 ####[facility] [address] [place], [address] RDW SD 44.8 fl High 35.1-43.9 [facility] Comment on above: Performed By: #### L 500.2500, L100.0100 ####[facility] [address] [place], [address] WBC (Bld) [#/Vol] 8.6 10*3/uL Normal 4.4-11.0 [facility] Comment on above: Performed By: #### L 500.2500, L100.0100 ####[facility] [address] [place], [address] Carbon dioxide, total [Moles /volume] in Central venous bloodOrdered By: Sarai Alcantara on 06-25-2024 CO2 [Moles/Vol] 25.1 mmol/L 21.0-32.0 [facility] Chloride assayOrdered By: Na na Quinton on 06-25-2024 Chloride [Moles/Vol] 99 mmol/L 98-108 [facility] Discharge Instructionon 06-10 Discharge Instruction Normal [facility] Eosinophil percentageOrdered By: Sarai Alcantara on 06-25-2024 Eosinophils/100 WBC (Bld) 0.3 % 0-5 [facility] Erythrocyte distribution wid th (RBC) [Ratio]Ordered By: Sarai Alcantara on 06-25-2024 Erythrocyte distribution width (RBC) [Entitic vol] 44.8 fL High 35.1-43.9 [facility] Erythrocyte distribution wid th ratioOrdered By: Sarai Alcantara 06-25-2024 Erythrocyte distribution width (RBC) [Ratio] 13.7 % 11.6-14.6 [facility] Erythrocyte distribution wid th standard deviationOrdered By: Sarai Alcantara on 06-25-2024 Erythrocyte distribution width (RBC) [Ratio] 44.8 fl High 35.1-43.9 [facility] Estimation of creatinine timur aranceOrdered By: Sarai Alcantara on 06-25-2024 Estimated Creatinine Clearance Calc 18.84 ml/min Low 50-250 [facility] GFR/1.73 sq M.predicted kaveh g non-blacks MDRD (S/P/Bld) [Vol rate/Area]Ordered By: Sarai Alcantara on 06-25-2024 Estimated GFR (MDRD) Non-Af Amer 21 Low >60 [facility] Comment on above: mL/min/1.73m2 CKD-EP I Creatinine Equation (2020) Glomerular filtration rate ( GFR) estimation/1.73 sq m using serum, plasma, or whole bOrdered By: Sarai Alcantara on 06-25-2024 GFR/1.73 sq M.predicted among non-blacks MDRD (S/P/Bld) [Vol rate/Area] 21 mL/min/{1.73_m2} Low >60 [facility] [facility] Comment on above: mL/min/1.73m2 CKD-EP I Creatinine Equation (2020) [facility] deOrdered By: Sarai Alcantara on 06-25-2024 Bedside Glucose (Misc Panel) 237 mg/dL High 74-106 [facility] Comment on above: MANAGEMENT OF PATIEN T CARE PER NURSING PROTOCOL Glucose [Mass/Vol] 237 mg/dL High 74-106 [facility] Comment on above: MANAGEMENT OF PATIEN T CARE PER NURSING PROTOCOL Hematocrit Auto (Bld) [Volum e fraction]Ordered By: Sarai Alcantara on 06-25-2024 Hematocrit (Bld) [Volume fraction] 23.4 % Low 40-54 [facility] Hemoglobin measurementOrdere d By: Sarai Alcantara on 06-25-2024 Hemoglobin (Bld) [Mass/Vol] 8.0 g/dL Low 13.0-16.5 [facility] Immature granulocytes/100 WB C Auto (Bld)Ordered By: Sarai Alcantara on 06-25-2024 Immature granulocytes/100 WBC (Bld) 0.300 % 0.0-0.9 [facility] Comment on above: IG% - Immature Granu locytes (promyelocytes, myelocytes and metamyelocytes) > 1% indicates that a LEFT SHIFT is Present. Lymphocytes Auto (Unsp spec) [#/Vol]Ordered By: Sarai Alcantara on 06-25-2024 Lymphocytes (Bld) [#/Vol] 1.06 10*3/uL 0.83-4.51 [facility] Lymphocytes/100 WBC Auto (Un sp spec)Ordered By: Sarai Alcantara on 06-25-2024 Lymphocytes/100 WBC (Bld) 12.3 % Low 19-41 [facility] MCV (mean corpuscular volume ) determinationOrdered By: Sarai Alcantara on 06-25-2024 MCV (RBC) [Entitic vol] 91.4 fL 80-94 [facility] Mean corpuscular hemoglobin (MCH) determinationOrdered By: Sarai Alcantara on 06-25-2024 MCH (RBC) [Entitic mass] 31.3 pg 27.0-32.0 [facility] Mean corpuscular hemoglobin concentration (MCHC) determinationOrdered By: Sarai Alcantara on 06-25-2024 MCHC (RBC) [Mass/Vol] 34.2 g/dL 32-36 [facility] Mean platelet volume determi nationOrdered By: Sarai Alcantara on 06-25-2024 Platelet mean volume (Bld) [Entitic vol] 11.0 fL 6.2-12.0 [facility] Monocyte percentageOrdered B y: Sarai Alcantara on 06-25-2024 Monocytes/100 WBC (Bld) 6.1 % 0-10 [facility] Neutrophil percentageOrdered By: Sarai Alcantara on 06-25-2024 Neutrophils/100 WBC (Bld) 80.9 % High 47-70 [facility] Nucleated red blood cell per centageOrdered By: Sarai Alcantara on 06-25-2024 Nucleated RBC/100 WBC (Bld) [Ratio] 0 % 0-5 [facility] Platelet countOrdered By: Na bria Alcantara on 06-25-2024 Platelets (Bld) [#/Vol] 94 10*3/uL Low 150-450 [facility] Potassium (Unsp spec) [Mass/ Vol]Ordered By: Sarai Alcantara on 06-25-2024 Potassium [Moles/Vol] 4.4 mmol/L 3.3-5.1 [facility] Potassium measurement (mass/ volume)Ordered By: Sarai Alcantara on 06-25-2024 Potassium (Unsp spec) [Mass/Vol] 4.4 mmol/L 3.3-5.1 [facility] RBC Auto (Bld) [#/Vol]Ordere d By: Sarai Alcantara on 06-25-2024 RBC (Bld) [#/Vol] 2.56 10*6/uL Low 4.6-6.2 [facility] Serum creatinine measurement (mass/volume)Ordered By: Sarai Alcantara on 06-25-2024 Creatinine [Mass/Vol] 2.83 mg/dL High 0.70-1.20 [facility] Serum glucose measurement (m ass/volume)Ordered By: Sarai Alcantara on 06-25-2024 Glucose [Mass/Vol] 126 mg/dL High 70-99 [facility] Serum or plasma calcium elmira urement (mass/volume)Ordered By: Sarai Alcantara on 06-25-2024 Calcium [Mass/Vol] 9.3 mg/dL 7.6-11.0 [facility] Serum or plasma urea nitroge n measurement (mass/volume)Ordered By: Sarai Alcantara on 06-25-2024 Urea nitrogen [Mass/Vol] 110 mg/dL High 4-19 [facility] Comment on above: Critical Result(s) C alled at 0852: by: [facility]IER [facility] Results read back by same. Critical Result(s) Called at: by: Results read back by same.Previous reported result: 110 mg/dLEdited by: VICKY on 06/25/24:0912 AMENDED REPORT 06/25/24 09 BUN previously reported as: 110 *H mg/dL Critical Result(s) Called at 0852: by: DIDIER [facility] Results read back by same. Sodium levelOrdered By: Sarai Alcantara on 06-25-2024 Sodium [Moles/Vol] 138 mmol/L 133-145 [facility] White blood cell (WBC) count Ordered By: Sarai Alcantara on 06-25-2024 WBC (Bld) [#/Vol] 8.6 10*3/uL 4.4-11.0 [facility] Bedside Glucoseon 06-24-2024 FINGERSTICK GLU 128 mg/dL High 74-106 [facility] Comment on above: Result Comment: MYKE GEMENT OF PATIENT CARE PER NURSING PROTOCOL Performed By: #### L 501.080 ####[facility] [address] [facility] [address] FINGERSTICK GLU 184 mg/dL High 74-106 [facility] Comment on above: Result Comment: MYKE GEMENT OF PATIENT CARE PER NURSING PROTOCOL Performed By: #### L 501.080 ####[facility] [address] [place], [address] FINGERSTICK GLU 276 mg/dL High 74-106 [facility] Comment on above: Result Comment: MYKE GEMENT OF PATIENT CARE PER NURSING PROTOCOL Performed By: #### L 501.080 ####[facility] [address] [place], [address] FINGERSTICK GLU 172 mg/dL High 74-106 [facility] Comment on above: Result Comment: MYKE SAGE OF PATIENT CARE PER NURSING PROTOCOL Performed By: #### L 501.080 ####[facility] [address] [place], [address] Bilirubin, totalOrdered By: Tracy Angel on 06-24-2024 Bilirubin [Mass/Vol] 0.32 mg/dL 0.00-1.30 [facility] Blood polychromasia detectio n by light microscopyOrdered By: Tracy Angel on 06-24-2024 Polychromasia LM Ql (Bld) 1+ [facility] CBC W/Diff, Automatedon 06-10 OVALOCYTE 1+ Normal [facility] Comment on above: Performed By: #### L 100.0100, L500.4100, L500.4050 ####[facility] [address] [place], [address] PLT EST MOD DEC Normal ADEQ [facility] Comment on above: Performed By: #### L 100.0100, L500.4100, L500.4050 ####[facility] [address] [place], [address] POLYCHROMASIA 1+ Normal [facility] Comment on above: Performed By: #### L 100.0100, L500.4100, L500.4050 ####[facility] [address] [place], [address] Calculated very low density lipoprotein (VLDL) cholesterol measurementOrdered By: Tracy Angel on 06-24-2024 Calculated very low density lipoprotein (VLDL) cholesterol measurement 21 mg/dL 5-40 [facility] VLDL Cholesterol 21 mg/dL 5-40 [facility] Comprehensive Metabolic Prof ilon 06-24-2024 Albumin [Mass/Vol] 4.0 g/dL Normal 3.4-4.8 [facility] Comment on above: Performed By: #### L 100.0100, L500.4100, L500.4050 ####[facility] [address] [place], [address] Albumin/Globulin [Mass ratio] 1.4 {ratio} Normal 0.9-2.4 [facility] Comment on above: Performed By: #### L 100.0100, L500.4100, L500.4050 ####[facility] [address] [place], [address] ALK PHOS 71 U/L Normal 40-129 [facility] Comment on above: Performed By: #### L 100.0100, L500.4100, L500.4050 ####[facility] [address] [place], [address] ALT [Catalytic activity/Vol] 31 U/L Normal <=46 [facility] Comment on above: Performed By: #### L 100.0100, L500.4100, L500.4050 ####[facility] [address] [place], [address] AST [Catalytic activity/Vol] 18 U/L Normal <=37 [facility] Comment on above: Performed By: #### L 100.0100, L500.4100, L500.4050 ####[facility] [address] [place], [address] Bilirubin [Mass/Vol] 0.32 mg/dL Normal 0.00-1.30 [facility] Comment on above: Performed By: #### L 100.0100, L500.4100, L500.4050 ####[facility] [address] [place], [address] BUN/CRE 36.8 RATIO High 10-20 [facility] Comment on above: Performed By: #### L 100.0100, L500.4100, L500.4050 ####[facility] [address] [place], [address] Calcium [Mass/Vol] 9.5 mg/dL Normal 7.6-11.0 [facility] Comment on above: Performed By: #### L 100.0100, L500.4100, L500.4050 ####[facility] [address] [place], [address] Chloride [Moles/Vol] 101 mmol/L Normal 98-108 [facility] Comment on above: Performed By: #### L 100.0100, L500.4100, L500.4050 ####[facility] [address] [place], [address] CO2 [Moles/Vol] 24.8 mmol/L Normal 21.0-32.0 [facility] Comment on above: Performed By: #### L 100.0100, L500.4100, L500.4050 ####[facility] [address] [place], [address] Creatinine [Mass/Vol] 2.57 mg/dL High 0.70-1.20 [facility] Comment on above: Performed By: #### L 100.0100, L500.4100, L500.4050 ####[facility] [address] [place], [address] ECRCL 20.74 ml/min Low 50-250 [facility] Comment on above: Performed By: #### L 100.0100, L500.4100, L500.4050 ####[facility] [address] [place], [address] GAP 14 Normal 5-15 [facility] Comment on above: Performed By: #### L 100.0100, L500.4100, L500.4050 ####[facility] [address] [place], [address] GFR/1.73 sq M.predicted among non-blacks MDRD (S/P/Bld) [Vol rate/Area] 24 mL/min/{1.73_m2} Low >60 [facility] Comment on above: Result Comment: mL/m in/1.73m2 CKD-EPI Creatinine Equation (2020) Performed By: #### L 100.0100, L500.4100, L500.4050 ####[facility] [address] [place], [address] Globulin (S) [Mass/Vol] 2.9 g/dL Normal 2.2-4.2 [facility] Comment on above: Performed By: #### L 100.0100, L500.4100, L500.4050 ####[facility] [address] [place], [address] Glucose [Mass/Vol] 170 mg/dL High 70-99 [facility] Comment on above: Performed By: #### L 100.0100, L500.4100, L500.4050 ####[facility] [address] [place], [address] Potassium [Moles/Vol] 4.6 mmol/L Normal 3.3-5.1 [facility] Comment on above: Performed By: #### L 100.0100, L500.4100, L500.4050 ####[facility] [address] [place], [address] Sodium [Moles/Vol] 140 mmol/L Normal 133-145 [facility] Comment on above: Performed By: #### L 100.0100, L500.4100, L500.4050 ####[facility] [address] [place], [address] T PROT 6.9 g/dL Normal 5.9-8.4 [facility] Comment on above: Performed By: #### L 100.0100, L500.4100, L500.4050 ####[facility] [address] [place], [address] Urea nitrogen [Mass/Vol] 95 mg/dL High 06-28 [facility] Comment on above: Performed By: #### L 100.0100, L500.4100, L500.4050 ####[facility] [address] [place], [address] Electrocardiogram reportOrde red By: Trell Kendrick on 06-24-2024 EKG study [facility] Services [address] [place] [address] 12 Lead EKG 06/23/24 1437 MR#: [id number] Acct: [id number] Name: BEULAH BRIGHT Rep #:[id number] : 1940 84 From: Trell lopez MD Attending Dr: Dr. Sarai Alcantara MD Status: ADM IN Ordering Dr: Delia Tai Date: 06/23/24 Location: [facility] Sex: M C Admitted: 06/23/24 [...] abnormality Abnormal ECG Confirmed by Trell Kendrick ([id number]), deputy editor in chief ZACKARY MARTINEZ ([id number]) on :28:21 AM Referred By: TEETEE Confirmed By: Trell Kendrick 06/24/24 1128 Date _ Trell Kendrick MD CC: Dr. Sarai Alcantara MD; Dr. Yuridia Hernandez MD; MIKE Calhoun ~ Signed [facility] Work Phone: LDL calc ser/plasOrdered By: Tracy Angel on 06-24-2024 Cholesterol in LDL [Mass/Vol] 92 mg/dL [facility] Comment on above: Hjdxxqkvoz=700-059 m g/dL & Higher Kxfj=544 mg/dL or greater LDL Cholesterol, Calculated 92 mg/dL [facility] Comment on above: Kzlgnmxyzo=982-772 m g/dL & Higher Moki=924 mg/dL or greater Laboratory - Chemistry and C hemistry - challengeOrdered By: Tracy Angel on 06-24-2024 AST [Catalytic activity/Vol] 18 U/L <38 [facility] Lipid Profileon 06-24-2024 CHOL:HDL 4.12 Normal [facility] Comment on above: Performed By: #### L 100.0100, L500.4100, L500.4050 ####[facility] [address] [place], [address] Cholesterol [Mass/Vol] 149 mg/dL Normal <=200 [facility] Comment on above: Result Comment: Chol esterol level, Desirable <200 mg/dLBorderline high cholesterol 200-239 mg/dLHigh cholesterol >=240 mg/dLRecommendations of the NCEP Adult Treatment Panel for thefollowing risk-cutoff thresholds for the [place] [facility]. Performed By: #### L 100.0100, L500.4100, L500.4050 ####[facility] [address] [place], [address] Cholesterol in HDL [Mass/Vol] 36 mg/dL Low [facility] Comment on above: Result Comment: Maritza onal Cholesterol Education Program (NCEP) guidelines:<40 mg/dL: Low HDL-cholesterol (major risk factor for CHD)>= 60 mg/dL: High HDL-cholesterol (negative risk factor forCHD)HDL-cholesterol is affected by a number of factors, e.g.smoking, exercise, hormones, sex and age. Performed By: #### L 100.0100, L500.4100, L500.4050 ####[facility] [address] [place], [address] Cholesterol in LDL [Mass/Vol] 92 mg/dL Normal [facility] Comment on above: Result Comment: Bord vkbtnl=598-636 mg/dL Higher Vmbf=776 mg/dL or greater Performed By: #### L 100.0100, L500.4100, L500.4050 ####[facility] [address] [place], [address] Cholesterol in VLDL [Mass/Vol] 21 mg/dL Normal 5-40 [facility] Comment on above: Performed By: #### L 100.0100, L500.4100, L500.4050 ####[facility] [address] [place], [address] Triglyceride [Mass/Vol] 106 mg/dL Normal [facility] Comment on above: Result Comment: The drugs N-Acetylcysteine and Metamizole may falselydepress this assay.Normal range: <150 mg/dLBorderline High: 150-199 mg/dLHigh: 200-499 mg/dLVery High: >500 mg/dL Performed By: #### L 100.0100, L500.4100, L500.4050 ####[facility] [address] [place], [address] Ovalocyte detectionOrdered B y: White on 06-24-2024 Ovalocytes LM Ql (Bld) 1+ [facility] Ovalocytes LM Ql (Bld)Ordere d By: White on 06-24-2024 Ovalocytes 1+ [facility] Platelet estimateOrdered By: White on 06-24-2024 Platelets LM Ql (Bld) MOD DEC ADEQ [facility] Platelets LM Ql (Bld)Ordered By: White on 06-24-2024 Platelet Estimate MOD DEC ADEQ [facility] Polychromasia LM Ql (Bld)Ord ered By: White on 06-24-2024 Polychromasia 1+ [facility] RESPIRATORY PANEL MOLECULARo n 06-24-2024 RP PANEL Normal [facility] Comment on above: Performed By: #### M 100.638 ####[facility] [address] [place], [address] Screening total cholesterol/ high density lipoprotein (HDL) cholesterol ratioOrdered By: Tracy Stanley on 06-24-2024 Cholesterol.total/Choles terol in HDL [Mass ratio] 4.12 {ratio} [facility] Serum globulin measurementOr dered By: [facility] 06-24-2024 Globulin (S) [Mass/Vol] 2.9 g/dL 2.2-4.2 [facility] Serum or plasma alanine duque otransferase (ALT) measurementOrdered By: [facility] 06-24-2024 ALT [Catalytic activity/Vol] 31 U/L <47 [facility] Serum or plasma albumin elmira urement (mass/volume)Ordered By: [facility] 06-24-2024 Albumin [Mass/Vol] 4.0 g/dL 3.4-4.8 [facility] Serum or plasma albumin/glob ulin mass ratioOrdered By: [facility] 06-24-2024 Albumin/Globulin [Mass ratio] 1.4 {ratio} 0.9-2.4 [facility] Serum or plasma alkaline lissa sphatase measurementOrdered By: [facility] 06-24-2024 ALP [Catalytic activity/Vol] 71 U/L 40-129 [facility] Serum or plasma cholesterol in HDL measurement (mass/volume)Ordered By: [facility] 06-24-2024 Cholesterol in HDL [Mass/Vol] 36 mg/dL Low >40 [facility] Comment on above: National Cholesterol Education Program (NCEP) guidelines:<40 mg/dL: Low HDL-cholesterol (major risk factor for CHD)>= 60 mg/dL: High HDL-cholesterol (negative risk factor for CHD)HDL-cholesterol is affected by a number of factors, e.g. smoking, exercise, hormones, sex and age. Serum or plasma cholesterol measurement (mass/volume)Ordered By: Tracy Stanley 06-24-2024 Cholesterol [Mass/Vol] 149 mg/dL <201 [facility] Comment on above: Cholesterol level, D esirable <200 mg/dLBorderline high cholesterol 200-239 mg/dLHigh cholesterol >=240 mg/dLRecommendations of the NCEP Adult Treatment Panel for the following risk-cutoff thresholds for the [place] population. Total proteinOrdered By: Raine harper Stanley on 06-24-2024 Protein [Mass/Vol] 6.9 g/dL 5.9-8.4 [facility] Triglycerides measurementOrd ered By: Tracy Stanley on 06-24-2024 Triglyceride [Mass/Vol] 106 mg/dL <199 [facility] Comment on above: The drugs N-Acetylcy steine and Metamizole may falsely depress this assay. Normal range: <150 mg/dLBorderline High: 150-199 mg/dLHigh: 200-499 mg/dLVery High: >500 mg/dL 12 Lead EKGon 06-23-2024 12 Lead EKG Normal [facility] Absolute neutrophil countOrd ered By: Delia Tai on 06-23-2024 Neutrophils (Bld) [#/Vol] 4.2 10*3/uL 2.0-7.7 [facility] Anion gap in Serum or Plasma Ordered By: Delia Tai on 06-23-2024 Anion gap [Moles/Vol] 13 mmol/L 07-24 [facility] BUN/creatinine ratioOrdered By: Delia Tai on 06-23-2024 Urea nitrogen/Creatinine [Mass ratio] 36.4 mg/mg High 12-29 [facility] Basic Metabolic Profile (BMP )on 06-23-2024 BUN/CRE 36.4 RATIO High 12-29 [facility] Comment on above: Performed By: #### L 503.7505, L100.0100, L500.2500 ####[facility] [address] [place], [address] Calcium [Mass/Vol] 9.3 mg/dL Normal 7.6-11.0 [facility] Comment on above: Performed By: #### L 503.7505, L100.0100, L500.2500 ####[facility] [address] [place], [address] Chloride [Moles/Vol] 103 mmol/L Normal 98-108 [facility] Comment on above: Performed By: #### L 503.7505, L100.0100, L500.2500 ####[facility] [address] [place], [address] CO2 [Moles/Vol] 25.6 mmol/L Normal 21.0-32.0 [facility] Comment on above: Performed By: #### L 503.7505, L100.0100, L500.2500 ####[facility] [address] [place], [address] Creatinine [Mass/Vol] 2.36 mg/dL High 0.70-1.20 [facility] Comment on above: Performed By: #### L 503.7505, L100.0100, L500.2500 ####[facility] [address] [place], [address] ECRCL 22.61 ml/min Low 50-250 [facility] Comment on above: Performed By: #### L 503.7505, L100.0100, L500.2500 ####[facility] [address] [place], [address] GAP 13 Normal 5-15 [facility] Comment on above: Performed By: #### L 503.7505, L100.0100, L500.2500 ####[facility] [address] [place], [address] GFR/1.73 sq M.predicted among non-blacks MDRD (S/P/Bld) [Vol rate/Area] 26 mL/min/{1.73_m2} Low >60 [facility] Comment on above: Result Comment: mL/m in/1.73m2 CKD-EPI Creatinine Equation (2020) Performed By: #### L 503.7505, L100.0100, L500.2500 ####[facility] [address] [place], [address] Glucose [Mass/Vol] 200 mg/dL High 70-99 [facility] Comment on above: Performed By: #### L 503.7505, L100.0100, L500.2500 ####[facility] [address] [place], [address] Potassium [Moles/Vol] 4.3 mmol/L Normal 3.3-5.1 [facility] Comment on above: Performed By: #### L 503.7505, L100.0100, L500.2500 ####[facility] [address] [place], [address] Sodium [Moles/Vol] 142 mmol/L Normal 133-145 [facility] Comment on above: Performed By: #### L 503.7505, L100.0100, L500.2500 ####[facility] [address] [place], [address] Urea nitrogen [Mass/Vol] 86 mg/dL High 4-19 [facility] Comment on above: Performed By: #### L 503.7505, L100.0100, L500.2500 ####[facility] [address] [place], [address] Basophil percentageOrdered B y: Delialeobardo Tai on 06-23-2024 Basophils/100 WBC (Bld) 0.5 % 0-1 [facility] Bedside Glucoseon 06-23-2024 FINGERSTICK GLU 205 mg/dL High 74-106 [facility] Comment on above: Result Comment: MYKE SAGE OF PATIENT CARE PER NURSING PROTOCOL Performed By: #### L 501.080 ####[facility] [address] [place], [address] CBC W/Diff, Automatedon 06-10 Absolute Lymph 1.05 X10 3/uL Normal 0.83-4.51 [facility] Comment on above: Performed By: #### L 503.7505, L100.0100, L500.2500 ####[facility] [address] [place], [address] Absolute Neut 4.2 X10 3/uL Normal 2.0-7.7 [facility] Comment on above: Performed By: #### L 503.7505, L100.0100, L500.2500 ####[facility] [address] [place], [address] Basophils/100 WBC (Bld) 0.5 % Normal 0-1 [facility] Comment on above: Performed By: #### L 503.7505, L100.0100, L500.2500 ####[facility] [address] [place], [address] Eosinophils/100 WBC (Bld) 3.5 % Normal 0-5 [facility] Comment on above: Performed By: #### L 503.7505, L100.0100, L500.2500 ####[facility] [address] [place], [address] Erythrocyte distribution width (RBC) [Ratio] 13.2 % Normal 11.6-14.6 [facility] Comment on above: Performed By: #### L 503.7505, L100.0100, L500.2500 ####[facility] [address] [place], [address] Hematocrit (Bld) [Volume fraction] 27.0 % Low 40-54 [facility] Comment on above: Performed By: #### L 503.7505, L100.0100, L500.2500 ####[facility] [address] [place], [address] Hemoglobin (Bld) [Mass/Vol] 8.5 g/dL Low 13.0-16.5 [facility] Comment on above: Performed By: #### L 503.7505, L100.0100, L500.2500 ####[facility] [address] [place], [address] IG% 0.300 Normal 0.0-0.9 [facility] Comment on above: Result Comment: IG% - Immature Granulocytes (promyelocytes, myelocytes andmetamyelocytes) > 1% indicates that a LEFT SHIFT is Present. Performed By: #### L 503.7505, L100.0100, L500.2500 ####[facility] [address] [place], [address] Lymphocytes/100 WBC (Bld) 17.7 % Low 19-41 [facility] Comment on above: Performed By: #### L 503.7505, L100.0100, L500.2500 ####[facility] [address] [place], [address] MCH (RBC) [Entitic mass] 29.9 pg Normal 27.0-32.0 [facility] Comment on above: Performed By: #### L 503.7505, L100.0100, L500.2500 ####[facility] [address] [place], [address] MCHC (RBC) [Mass/Vol] 31.5 g/dL Low 32-36 [facility] Comment on above: Performed By: #### L 503.7505, L100.0100, L500.2500 ####[facility] [address] [place], [address] MCV (RBC) [Entitic vol] 95.1 fL High 80-94 [facility] Comment on above: Performed By: #### L 503.7505, L100.0100, L500.2500 ####[facility] [address] [place], [address] Monocytes/100 WBC (Bld) 6.6 % Normal 0-10 [facility] Comment on above: Performed By: #### L 503.7505, L100.0100, L500.2500 ####[facility] [address] [place], [address] Neutrophils/100 WBC (Bld) 71.4 % High 47-70 [facility] Comment on above: Performed By: #### L 503.7505, L100.0100, L500.2500 ####[facility] [address] [place], [address] Nucleated RBC (Bld) [#/Vol] 0 10*3/uL Normal 0-5 [facility] Comment on above: Performed By: #### L 503.7505, L100.0100, L500.2500 ####[facility] [address] [place], [address] Platelet mean volume (Bld) [Entitic vol] 10.5 fL Normal 6.2-12.0 [facility] Comment on above: Performed By: #### L 503.7505, L100.0100, L500.2500 ####[facility] [address] [place], [address] Platelets (Bld) [#/Vol] 101 10*3/uL Low 150-450 [facility] Comment on above: Performed By: #### L 503.7505, L100.0100, L500.2500 ####[facility] [address] [place], [address] RBC (Bld) [#/Vol] 2.84 10*6/uL Low 4.6-6.2 [facility] Comment on above: Performed By: #### L 503.7505, L100.0100, L500.2500 ####[facility] [address] [place], [address] RDW SD 45.3 fl High 35.1-43.9 [facility] Comment on above: Performed By: #### L 503.7505, L100.0100, L500.2500 ####[facility] [address] [place], [address] WBC (Bld) [#/Vol] 5.9 10*3/uL Normal 4.4-11.0 [facility] Comment on above: Performed By: #### L 503.8006, L100.0100, L500.2500 ####[facility] [address] [place], [address] Carbon dioxide, total [Moles /volume] in Central venous bloodOrdered By: Delia Tai on 06-23-2024 CO2 [Moles/Vol] 25.6 mmol/L 21.0-32.0 [facility] Chest 1 View (Portable)on Chest 1 View (Portable) Normal [facility] Chloride assayOrdered By: Suzan Tai on 06-23-2024 Chloride [Moles/Vol] 103 mmol/L 98-108 [facility] Emergency Department Summary on 06-23-2024 Emergency Department Summary Normal [facility] Eosinophil percentageOrdered By: Delia Tai on 06-23-2024 Eosinophils/100 WBC (Bld) 3.5 % 0-5 [facility] Erythrocyte distribution wid th (RBC) [Ratio]Ordered By: Delia Tai on 06-23-2024 Erythrocyte distribution width (RBC) [Entitic vol] 45.3 fL High 35.1-43.9 [facility] Erythrocyte distribution wid th ratioOrdered By: Delia Tai on 06-23-2024 Erythrocyte distribution width (RBC) [Ratio] 13.2 % 11.6-14.6 [facility] Estimation of creatinine timur aranceOrdered By: Delia Tai on 06-23-2024 Estimated Creatinine Clearance Calc 22.61 ml/min Low 50-250 [facility] GFR/1.73 sq M.predicted kaveh g non-blacks MDRD (S/P/Bld) [Vol rate/Area]Ordered By: Delia Tai on 06-23-2024 Estimated GFR (MDRD) Non-Af Amer 26 Low >60 [facility] Comment on above: mL/min/1.73m2 CKD-EP I Creatinine Equation (2020) H AND P Exam - [facility] 04-14-2025 H&P Exam - Hospitalist Normal [facility] Hematocrit Auto (Bld) [Volum e fraction]Ordered By: Delialeobardo Tai on 06-23-2024 Hematocrit (Bld) [Volume fraction] 27.0 % Low 40-54 [facility] Hemoglobin measurementOrdere d By: Delia Abida on 06-23-2024 Hemoglobin (Bld) [Mass/Vol] 8.5 g/dL Low 13.0-16.5 [facility] Immature granulocytes/100 WB C Auto (Bld)Ordered By: Delia Tai on 06-23-2024 Immature granulocytes/100 WBC (Bld) 0.300 % 0.0-0.9 [facility] Comment on above: IG% - Immature Granu locytes (promyelocytes, myelocytes and metamyelocytes) > 1% indicates that a LEFT SHIFT is Present. Influenza virus A and B and SARS-CoV-2 (COVID-19) and Respiratory syncytial virus RNAOrdered By: Delia Tai on 06-23-2024 SARS-CoV-2 (COVID-19) RNA JOSH+probe Ql (Unsp spec) [facility] L499.0042on 06-23-2024 Trop T High Sen 83 ng/L Invalid Interpretation Code <=22 [facility] Comment on above: Result Comment: Crit ical Result(s) Called ESMART at: 1805 by:ZOYA??Results read back by same. Performed By: #### L 499.0042 ####[facility] [address] [place], [address] L499.0043on 06-23-2024 Trop T High Sen 71 ng/L Invalid Interpretation Code <=22 [facility] Comment on above: Result Comment: Crit ical Result(s) Called AFLICKINGER at: 2157 by:ZOYA??Results read back by same. Performed By: #### L 499.0043 ####[facility] [address] [place], [address] L501.4021on 06-23-2024 Trop T High Sen 83 ng/L Invalid Interpretation Code <=22 [facility] Comment on above: Result Comment: Crit ical Result(s) Called ACOLE at: 1617 by:ZOYA??Results read back by same. Performed By: #### L 501.4021 ####[facility] [address] [place], [address] L503.7505on 06-23-2024 Natriuretic peptide B (Bld) [Mass/Vol] 2233 pg/mL High <=1800 [facility] Comment on above: Result Comment: Hear t Failure Unlikely: < 300 pg/mLHeart Failure Likely< 50 Years: > 450 pg/mL50-75 Years: > 900 pg/mL>75 Years: > 1800 pg/mL Performed By: #### L 503.7505, L100.0100, L500.2500 ####[facility] [address] [place], [address] L509.7001on 06-23-2024 Procalcitonin 0.12 ng/mL High <=0.10 [facility] Comment on above: Result Comment: Inte rpretation:<0.10-0.25 ng/mL: Antibiotic therapy discouraged. Bacterialinfection unlikely.0.25-0.50 ng/mL: Antibiotic therapy encouraged. Bacterialinfection possible.>0.50 ng/mL: Antibiotic therapy strongly encouraged.Suggestive of presence of bacterial infection.PCT should always be interpreted in the clinical context ofthe patient. Therefore, clinicians should use the PCTresults in conjunction with other laboratory findings andclinical signs of the patient. Performed By: #### L 509.7001 ####[facility] [address] [place], [address] Lymphocytes Auto (Unsp spec) [#/Vol]Ordered By: Delia Tai on 06-23-2024 Lymphocytes (Bld) [#/Vol] 1.05 10*3/uL 0.83-4.51 [facility] Lymphocytes/100 WBC Auto (Un sp spec)Ordered By: Delia Tai on 06-23-2024 Lymphocytes/100 WBC (Bld) 17.7 % Low 19-41 [facility] M100.678on 06-23-2024 M100.678 Pending SARS-CoV-2 (COVID 19) Negative INFLUENZA A Negative INFLUENZA B Negative RSV PCR Negative Normal [facility] Comment on above: Performed By: #### M 100.678 ####[facility] [address] [place], [address] M8200.1000on 06-23-2024 M8200.1000 Normal Reference Ran ge = Negative MRSA DNA Nose Ql JOSH+probe GeneXpert Instrument, PCR method MRSA PCR MRSA NEGATIVE Normal [facility] Comment on above: Performed By: #### M 8200.1000 ####[facility] [address] [place], [address] MCV (mean corpuscular volume ) determinationOrdered By: Delia Tai on 06-23-2024 MCV (RBC) [Entitic vol] 95.1 fL High 80-94 [facility] MRSA DNA JOSH+probe Ql (Nose) Ordered By: Tracy Angel on 06-23-2024 MRSA (PCR) [facility] Magnesiumon 06-23-2024 Magnesium [Mass/Vol] 2.0 mg/dL Normal 1.5-2.2 [facility] Comment on above: Order Comment: Comme nts: may add to ED labs Performed By: #### L 501.5200 ####[facility] [address] [place], [address] Magnesium (Unsp spec) [Mass/ Vol]Ordered By: Tracy Angel on 06-23-2024 Magnesium [Mass/Vol] 2.0 mg/dL 1.5-2.2 [facility] Magnesium measurement (mass/ volume)Ordered By: Tracy Angel on 06-23-2024 Magnesium (Unsp spec) [Mass/Vol] 2.0 mg/dL 1.5-2.2 [facility] Mean corpuscular hemoglobin (MCH) determinationOrdered By: Delia Tai on 06-23-2024 MCH (RBC) [Entitic mass] 29.9 pg 27.0-32.0 [facility] Mean corpuscular hemoglobin concentration (MCHC) determinationOrdered By: Delia Tai on 06-23-2024 MCHC (RBC) [Mass/Vol] 31.5 g/dL Low 32-36 [facility] Mean platelet volume determi nationOrdered By: Delia Tai on 06-23-2024 Platelet mean volume (Bld) [Entitic vol] 10.5 fL 6.2-12.0 [facility] Monocyte percentageOrdered B y: Delia Tai on 06-23-2024 Monocytes/100 WBC (Bld) 6.6 % 0-10 [facility] Nasal methicillin resistant Staphylococcus aureus (MRSA) DNA detection by PCROrdered By: Tracy Angel on 06-23-2024 MRSA DNA JOSH+probe Ql (Nose) [facility] Natriuretic peptide.B prohor chris N-Terminal [Mass/Vol]Ordered By: Delia Tai on 06-23-2024 Natriuretic peptide B (Bld) [Mass/Vol] 2233 pg/mL High <1800 [facility] Comment on above: Heart Failure Unlike ly: < 300 pg/mLHeart Failure Likely< 50 Years: > 450 pg/mL50-75 Years: > 900 pg/mL>75 Years: > 1800 pg/mL Natriuretic peptide.B prohor chris N-Terminal [Mass/volume] in Serum or PlasmaOrdered By: Delia Tai on 06-23-2024 Natriuretic peptide.B prohormone N-Terminal [Mass/Vol] 2233 pg/mL High <1800 [facility] Comment on above: Heart Failure Unlike ly: < 300 pg/mLHeart Failure Likely< 50 Years: > 450 pg/mL50-75 Years: > 900 pg/mL>75 Years: > 1800 pg/mL Neutrophil percentageOrdered By: Delia Tai on 06-23-2024 Neutrophils/100 WBC (Bld) 71.4 % High 47-70 [facility] Nucleated red blood cell per centageOrdered By: Delia Tai on 06-23-2024 Nucleated RBC/100 WBC (Bld) [Ratio] 0 % 0-5 [facility] Platelet countOrdered By: Suzan Tai on 06-23-2024 Platelets (Bld) [#/Vol] 101 10*3/uL Low 150-450 [facility] Potassium (Unsp spec) [Mass/ Vol]Ordered By: Delia Tai on 06-23-2024 Potassium [Moles/Vol] 4.3 mmol/L 3.3-5.1 [facility] Procalcitonin IA [Mass/Vol]O rdered By: Tracy Angel on 06-23-2024 Procalcitonin 0.12 ng/mL High <0.11 [facility] Comment on above: Interpretation:<0.10 -0.25 ng/mL: [...] Procalcitonin IA [Mass/Vol] 0.12 ng/mL High <0.11 [facility] Comment on above: Interpretation:<0.10 -0.25 ng/mL: [...] RBC (Bld) [#/Vol] 2.84 10*6/uL Low 4.6-6.2 [facility] Respiratory pathogens DNA an d RNA panel JOSH+probe (Resp)Ordered By: Tracy Angel on 06-23-2024 Respiratory Panel (PCR) [facility] Respiratory pathogens detect ion panel by molecular detection methodOrdered By: Tracy Angel on 06-23-2024 Respiratory pathogens DNA and RNA panel JOSH+probe (Resp) [facility] Serum creatinine measurement (mass/volume)Ordered By: Delia Tia on 06-23-2024 Creatinine [Mass/Vol] 2.36 mg/dL High 0.70-1.20 [facility] Serum glucose measurement (m ass/volume)Ordered By: Delia Tai on 06-23-2024 Glucose [Mass/Vol] 200 mg/dL High 70-99 [facility] Serum or plasma calcium elmira urement (mass/volume)Ordered By: Delia Tai on 06-23-2024 Calcium [Mass/Vol] 9.3 mg/dL 7.6-11.0 [facility] Serum or plasma urea nitroge n measurement (mass/volume)Ordered By: Delia Tai on 06-23-2024 Urea nitrogen [Mass/Vol] 86 mg/dL High 4-19 [facility] Sodium levelOrdered By: Delia Tai on 06-23-2024 Sodium [Moles/Vol] 142 mmol/L 133-145 [facility] Troponin T.cardiac High sens itivity method [Mass/Vol]Ordered By: Delia Tai on 06-23-2024 Troponin T High Sensitivity 4 Hour 71 ng/L High <22 [facility] Comment on above: Critical Result(s) C alled AFLICKINGER at: 2157 by: BWORKMAN Results read back by same. Troponin T High Sensitivity 2 Hour 83 ng/L High <22 [facility] Comment on above: Critical Result(s) C alled ESMART at: 1805 by: BWORKMAN Results read back by same. Troponin T High Sensitivity 83 ng/L High <22 [facility] Comment on above: Critical Result(s) C alled ACOLE at: 1617 by: BWORKMAN Results read back by same. Troponin T.cardiac [Mass/vol ume] in Serum or Plasma by High sensitivity methodOrdered By: Delia Tai on 06-23-2024 Troponin T.cardiac High sensitivity method [Mass/Vol] 71 ng/L High <22 [facility] Comment on above: Critical Result(s) C alled AFLICKINGER at: 2157 by: BWORKMAN Results read back by same. Troponin T.cardiac High sensitivity method [Mass/Vol] 83 ng/L High <22 [facility] Comment on above: Critical Result(s) C alled ESMART at: 1805 by: ZOYA Results read back by same. Troponin T.cardiac High sensitivity method [Mass/Vol] 83 ng/L High <22 [facility] Comment on above: Critical Result(s) C soha ACOLE at: 1617 by: ZOYA Results read back by same. White blood cell (WBC) count Ordered By: Delia Tai on 06-23-2024 WBC (Bld) [#/Vol] 5.9 10*3/uL 4.4-11.0 [facility] Absolute lymphocyte countOrd ered By: Garfield Gerald on 05-28-2024 Lymphocytes Auto (Unsp spec) [#/Vol] 1.74 10*3/uL 0.83-4.51 [facility] Absolute neutrophil countOrd ered By: Andre Duarte on 05-28-2024 Neutrophils (Bld) [#/Vol] 4.4 10*3/uL 2.0-7.7 [facility] Anion gap in Serum or Plasma Ordered By: Andre Duarte on 05-28-2024 Anion gap [Moles/Vol] 14 mmol/L 5-15 [facility] Automated lymphocyte count a s percentage of total leukocytesOrdered By: Andre Duarte on 05-28-2024 Lymphocytes/100 WBC Auto (Unsp spec) 24.2 % 19-41 [facility] BUN/creatinine ratioOrdered By: Andre Duarte on 05-28-2024 Urea nitrogen/Creatinine [Mass ratio] 31.3 mg/mg High 10-20 [facility] Basophil percentageOrdered B y: Andre Duarte on 05-28-2024 Basophils/100 WBC (Bld) 0.6 % 0-1 [facility] Bilirubin, totalOrdered By: Andre Duarte on 05-28-2024 Bilirubin [Mass/Vol] 0.21 mg/dL 0.00-1.30 [facility] CBC W/Diff, Automatedon 05-10 Absolute Lymph 1.74 X10 3/uL Normal 0.83-4.51 [facility] Comment on above: Performed By: #### L 100.0100, L504.2610, L100.9950, L503.6550, L500.4050, L503.6030 ####[facility] [address] [place], [address] Absolute Neut 4.4 X10 3/uL Normal 2.0-7.7 [facility] Comment on above: Performed By: #### L 100.0100, L504.2610, L100.9950, L503.6550, L500.4050, L503.6030 ####[facility] [address] [place], [address] Basophils/100 WBC (Bld) 0.6 % Normal 0-1 [facility] Comment on above: Performed By: #### L 100.0100, L504.2610, L100.9950, L503.6550, L500.4050, L503.6030 ####[facility] [address] [place], [address] Eosinophils/100 WBC (Bld) 5.0 % Normal 0-5 [facility] Comment on above: Performed By: #### L 100.0100, L504.2610, L100.9950, L503.6550, L500.4050, L503.6030 ####[facility] [address] [place], [address] Erythrocyte distribution width (RBC) [Ratio] 11.9 % Normal 11.6-14.6 [facility] Comment on above: Performed By: #### L 100.0100, L504.2610, L100.9950, L503.6550, L500.4050, L503.6030 ####[facility] [address] [place], [address] Hematocrit (Bld) [Volume fraction] 30.5 % Low 40-54 [facility] Comment on above: Performed By: #### L 100.0100, L504.2610, L100.9950, L503.6550, L500.4050, L503.6030 ####[facility] [address] [place], [address] Hemoglobin (Bld) [Mass/Vol] 9.9 g/dL Low 13.0-16.5 [facility] Comment on above: Performed By: #### L 100.0100, L504.2610, L100.9950, L503.6550, L500.4050, L503.6030 ####[facility] [address] [place], [address] IG% 0.300 Normal 0.0-0.9 [facility] Comment on above: Result Comment: IG% - Immature Granulocytes (promyelocytes, myelocytes andmetamyelocytes) > 1% indicates that a LEFT SHIFT is Present. Performed By: #### L 100.0100, L504.2610, L100.9950, L503.6550, L500.4050, L503.6030 ####[facility] [address] [place], [address] Lymphocytes/100 WBC (Bld) 24.2 % Normal 19-41 [facility] Comment on above: Performed By: #### L 100.0100, L504.2610, L100.9950, L503.6550, L500.4050, L503.6030 ####[facility] [address] [place], [address] MCH (RBC) [Entitic mass] 30.7 pg Normal 27.0-32.0 [facility] Comment on above: Performed By: #### L 100.0100, L504.2610, L100.9950, L503.6550, L500.4050, L503.6030 ####[facility] [address] [place], [address] MCHC (RBC) [Mass/Vol] 32.5 g/dL Normal 32-36 [facility] Comment on above: Performed By: #### L 100.0100, L504.2610, L100.9950, L503.6550, L500.4050, L503.6030 ####[facility] [address] [place], [address] MCV (RBC) [Entitic vol] 94.4 fL High 80-94 [facility] Comment on above: Performed By: #### L 100.0100, L504.2610, L100.9950, L503.6550, L500.4050, L503.6030 ####[facility] [address] [place], [address] Monocytes/100 WBC (Bld) 8.2 % Normal 0-10 [facility] Comment on above: Performed By: #### L 100.0100, L504.2610, L100.9950, L503.6550, L500.4050, L503.6030 ####[facility] [address] [place], [address] Neutrophils/100 WBC (Bld) 61.7 % Normal 47-70 [facility] Comment on above: Performed By: #### L 100.0100, L504.2610, L100.9950, L503.6550, L500.4050, L503.6030 ####[facility] [address] [place], [address] Nucleated RBC (Bld) [#/Vol] 0 10*3/uL Normal 0-5 [facility] Comment on above: Performed By: #### L 100.0100, L504.2610, L100.9950, L503.6550, L500.4050, L503.6030 ####[facility] [address] [place], [address] Platelet mean volume (Bld) [Entitic vol] 10.8 fL Normal 6.2-12.0 [facility] Comment on above: Performed By: #### L 100.0100, L504.2610, L100.9950, L503.6550, L500.4050, L503.6030 ####[facility] [address] [place], [address] Platelets (Bld) [#/Vol] 128 10*3/uL Low 150-450 [facility] Comment on above: Performed By: #### L 100.0100, L504.2610, L100.9950, L503.6550, L500.4050, L503.6030 ####[facility] [address] [place], [address] RBC (Bld) [#/Vol] 3.23 10*6/uL Low 4.6-6.2 [facility] Comment on above: Performed By: #### L 100.0100, L504.2610, L100.9950, L503.6550, L500.4050, L503.6030 ####[facility] [address] [place], [address] RDW SD 41.4 fl Normal 35.1-43.9 [facility] Comment on above: Performed By: #### L 100.0100, L504.2610, L100.9950, L503.6550, L500.4050, L503.6030 ####[facility] [address] [place], [address] WBC (Bld) [#/Vol] 7.2 10*3/uL Normal 4.4-11.0 [facility] Comment on above: Performed By: #### L 100.0100, L504.2610, L100.9950, L503.6550, L500.4050, L503.6030 ####[facility] [address] [place], [address] Calculated total iron bindin g capacityOrdered By: Andre Duarte on 05-28-2024 Total Iron Binding Capacity 268 ug/dL 250-450 [facility] Carbon dioxide, total [Moles /volume] in Central venous bloodOrdered By: Andre Duarte on 05-28-2024 CO2 [Moles/Vol] 23.6 mmol/L 21.0-32.0 [facility] Chloride assayOrdered By: Anabell Duarte on 05-28-2024 Chloride [Moles/Vol] 105 mmol/L 98-108 [facility] Comprehensive Metabolic Prof ilon 05-28-2024 Albumin [Mass/Vol] 4.1 g/dL Normal 3.4-4.8 [facility] Comment on above: Performed By: #### L 100.0100, L504.2610, L100.9950, L503.6550, L500.4050, L503.6030 ####[facility] [address] [place], [address] Albumin/Globulin [Mass ratio] 1.3 {ratio} Normal 0.9-2.4 [facility] Comment on above: Performed By: #### L 100.0100, L504.2610, L100.9950, L503.6550, L500.4050, L503.6030 ####[facility] [address] [place], [address] ALK PHOS 67 U/L Normal 40-129 [facility] Comment on above: Performed By: #### L 100.0100, L504.2610, L100.9950, L503.6550, L500.4050, L503.6030 ####[facility] [address] [place], [address] ALT [Catalytic activity/Vol] 17 U/L Normal <=46 [facility] Comment on above: Performed By: #### L 100.0100, L504.2610, L100.9950, L503.6550, L500.4050, L503.6030 ####[facility] [address] [place], [address] AST [Catalytic activity/Vol] 16 U/L Normal <=37 [facility] Comment on above: Performed By: #### L 100.0100, L504.2610, L100.9950, L503.6550, L500.4050, L503.6030 ####[facility] [address] [place], [address] Bilirubin [Mass/Vol] 0.21 mg/dL Normal 0.00-1.30 [facility] Comment on above: Performed By: #### L 100.0100, L504.2610, L100.9950, L503.6550, L500.4050, L503.6030 ####[facility] [address] [place], [address] BUN/CRE 31.3 RATIO High 10-20 [facility] Comment on above: Performed By: #### L 100.0100, L504.2610, L100.9950, L503.6550, L500.4050, L503.6030 ####[facility] [address] [place], [address] Calcium [Mass/Vol] 9.7 mg/dL Normal 7.6-11.0 [facility] Comment on above: Performed By: #### L 100.0100, L504.2610, L100.9950, L503.6550, L500.4050, L503.6030 ####[facility] [address] [place], [address] Chloride [Moles/Vol] 105 mmol/L Normal 98-108 [facility] Comment on above: Performed By: #### L 100.0100, L504.2610, L100.9950, L503.6550, L500.4050, L503.6030 ####[facility] [address] [place], [address] CO2 [Moles/Vol] 23.6 mmol/L Normal 21.0-32.0 [facility] Comment on above: Performed By: #### L 100.0100, L504.2610, L100.9950, L503.6550, L500.4050, L503.6030 ####[facility] [address] [place], [address] Creatinine [Mass/Vol] 3.09 mg/dL High 0.70-1.20 [facility] Comment on above: Performed By: #### L 100.0100, L504.2610, L100.9950, L503.6550, L500.4050, L503.6030 ####[facility] [address] [place], [address] ECRCL 17.24 ml/min Low 50-250 [facility] Comment on above: Performed By: #### L 100.0100, L504.2610, L100.9950, L503.6550, L500.4050, L503.6030 ####[facility] [address] [place], [address] GAP 14 Normal 5-15 [facility] Comment on above: Performed By: #### L 100.0100, L504.2610, L100.9950, L503.6550, L500.4050, L503.6030 ####[facility] [address] [place], [address] GFR/1.73 sq M.predicted among non-blacks MDRD (S/P/Bld) [Vol rate/Area] 19 mL/min/{1.73_m2} Low >60 [facility] Comment on above: Result Comment: mL/m in/1.73m2 CKD-EPI Creatinine Equation (2020) Performed By: #### L 100.0100, L504.2610, L100.9950, L503.6550, L500.4050, L503.6030 ####[facility] [address] [place], [address] Globulin (S) [Mass/Vol] 3.2 g/dL Normal 2.2-4.2 [facility] Comment on above: Performed By: #### L 100.0100, L504.2610, L100.9950, L503.6550, L500.4050, L503.6030 ####[facility] [address] [place], [address] Glucose [Mass/Vol] 70 mg/dL Normal 70-99 [facility] Comment on above: Performed By: #### L 100.0100, L504.2610, L100.9950, L503.6550, L500.4050, L503.6030 ####[facility] [address] [place], [address] Potassium [Moles/Vol] 4.7 mmol/L Normal 3.3-5.1 [facility] Comment on above: Performed By: #### L 100.0100, L504.2610, L100.9950, L503.6550, L500.4050, L503.6030 ####[facility] [address] [place], [address] Sodium [Moles/Vol] 143 mmol/L Normal 133-145 [facility] Comment on above: Performed By: #### L 100.0100, L504.2610, L100.9950, L503.6550, L500.4050, L503.6030 ####[facility] [address] [place], [address] T PROT 7.2 g/dL Normal 5.9-8.4 [facility] Comment on above: Performed By: #### L 100.0100, L504.2610, L100.9950, L503.6550, L500.4050, L503.6030 ####[facility] [address] [place], [address] Urea nitrogen [Mass/Vol] 97 mg/dL High 4-19 [facility] Comment on above: Performed By: #### L 100.0100, L504.2610, L100.9950, L503.6550, L500.4050, L503.6030 ####[facility] [address], [address] Eosinophil percentageOrdered By: Andre Duarte on 05-28-2024 Eosinophils/100 WBC (Bld) 5.0 % 0-5 [facility] Erythrocyte distribution wid th (RBC) [Ratio]Ordered By: Andre Gerald on 05-28-2024 Erythrocyte distribution width (RBC) [Entitic vol] 41.4 fL 35.1-43.9 [facility] Erythrocyte distribution wid th ratioOrdered By: [facility] on 05-28-2024 Erythrocyte distribution width (RBC) [Ratio] 11.9 % 11.6-14.6 [facility] Erythrocyte distribution wid th standard deviationOrdered By: [facility] on 05-28-2024 Erythrocyte distribution width (RBC) [Ratio] 41.4 fl 35.1-43.9 [facility] Estimation of creatinine timur aranceOrdered By: Andre Duarte on 05-28-2024 Estimated Creatinine Clearance Calc 17.24 ml/min Low 50-250 [facility] Ferritinon 05-28-2024 Ferritin [Mass/Vol] 55 ng/mL Normal 37-417 [facility] Comment on above: Performed By: #### L 100.0100, L504.2610, L100.9950, L503.6550, L500.4050, L503.6030 ####[facility] [address] [place], [address] GFR/1.73 sq M.predicted kaveh g non-blacks MDRD (S/P/Bld) [Vol rate/Area]Ordered By: Andre Duarte on 05-28-2024 Estimated GFR (MDRD) Non-Af Amer 19 Low >60 [facility] Comment on above: mL/min/1.73m2 CKD-EP I Creatinine Equation (2020) Glomerular filtration rate ( GFR) estimation/1.73 sq m using serum, plasma, or whole bOrdered By: Andre Duarte on 05-28-2024 GFR/1.73 sq M.predicted among non-blacks MDRD (S/P/Bld) [Vol rate/Area] 19 mL/min/{1.73_m2} Low >60 [facility] Comment on above: mL/min/1.73m2 CKD-EP I Creatinine Equation (2020) Hematocrit Auto (Bld) [Volum e fraction]Ordered By: Andre Duarte on 05-28-2024 Hematocrit (Bld) [Volume fraction] 30.5 % Low 40-54 [facility] Hemoglobin (Reticulocytes) [ Entitic mass]Ordered By: Andre Duarte on 05-28-2024 Reticulocyte Hemoglobin Equivalent 33.4 pg 30-35 [facility] Hemoglobin measurementOrdere d By: Andre Duarte on 05-28-2024 Hemoglobin (Bld) [Mass/Vol] 9.9 g/dL Low 13.0-16.5 [facility] Immature granulocytes/100 WB C Auto (Bld)Ordered By: Andre Duarte on 05-28-2024 Immature granulocytes/100 WBC (Bld) 0.300 % 0.0-0.9 [facility] Comment on above: IG% - Immature Granu locytes (promyelocytes, myelocytes and metamyelocytes) > 1% indicates that a LEFT SHIFT is Present. Immature reticulocyte fracti onOrdered By: Andre Duarte on 05-28-2024 Immature Reticulocyte Fraction 8.10 % 3.00-15.90 [facility] Iron (Unsp spec) [Mass/Mass] Ordered By: Andre Duarte on 05-28-2024 Iron [Mass/Vol] 69 ug/dL 65-175 [facility] Iron measurement (mass/mass) Ordered By: Andre Duarte on 05-28-2024 Iron (Unsp spec) [Mass/Mass] 69 ug/dL 65-175 [facility] Iron saturation [Mass fracti on]Ordered By: Andre Duarte on 05-28-2024 Iron Saturation 26.0 % 9-55 [facility] Iron+Iron Binding Capacityon 05-28-2024 Iron [Mass/Vol] 69 ug/dL Normal 65-175 [facility] Comment on above: Performed By: #### L 100.0100, L504.2610, L100.9950, L503.6550, L500.4050, L503.6030 ####[facility] [address] [place], [address] IRON SATURATION 26.0 Normal 9-55 [facility] Comment on above: Performed By: #### L 100.0100, L504.2610, L100.9950, L503.6550, L500.4050, L503.6030 ####[facility] [address] [place], [address] TIBC 268 ug/dL Normal 250-450 [facility] Comment on above: Performed By: #### L 100.0100, L504.2610, L100.9950, L503.6550, L500.4050, L503.6030 ####[facility] [address] [place], [address] UIBC 199 ug/dL Low 228-428 [facility] Comment on above: Performed By: #### L 100.0100, L504.2610, L100.9950, L503.6550, L500.4050, L503.6030 ####[facility] [address] [place], [address] LDHon 05-28-2024 LDH 153 U/L Normal 87-241 [facility] Comment on above: Order Comment: 1 Performed By: #### L 100.0100, L504.2610, L100.9950, L503.6550, L500.4050, L503.6030 ####[facility] [address] [place], [address] Laboratory - Chemistry and C hemistry - challengeOrdered By: Andre Duarte on 05-28-2024 AST [Catalytic activity/Vol] 16 U/L <38 [facility] Lactate dehydrogenase (LDH) measurementOrdered By: Andre Duarte on 05-28-2024 LDH [Catalytic activity/Vol] 153 U/L 87-241 [facility] Lymphocytes Auto (Unsp spec) [#/Vol]Ordered By: Andre Duarte on 05-28-2024 Lymphocytes (Bld) [#/Vol] 1.74 10*3/uL 0.83-4.51 [facility] Lymphocytes/100 WBC Auto (Un sp spec)Ordered By: Andre Duarte on 05-28-2024 Lymphocytes/100 WBC (Bld) 24.2 % 19-41 [facility] MCV (mean corpuscular volume ) determinationOrdered By: Andre Duarte on 05-28-2024 MCV (RBC) [Entitic vol] 94.4 fL High 80-94 [facility] Mean corpuscular hemoglobin (MCH) determinationOrdered By: Andre Duarte on 05-28-2024 MCH (RBC) [Entitic mass] 30.7 pg 27.0-32.0 [facility] Mean corpuscular hemoglobin concentration (MCHC) determinationOrdered By: Andre Duarte on 05-28-2024 MCHC (RBC) [Mass/Vol] 32.5 g/dL 32-36 [facility] Mean platelet volume determi nationOrdered By: Andre Duarte on 05-28-2024 Platelet mean volume (Bld) [Entitic vol] 10.8 fL 6.2-12.0 [facility] Monocyte percentageOrdered B y: Andre Duarte on 05-28-2024 Monocytes/100 WBC (Bld) 8.2 % 0-10 [facility] Neutrophil percentageOrdered By: Andre Duarte on 05-28-2024 Neutrophils/100 WBC (Bld) 61.7 % 47-70 [facility] No Panel InformationOrdered By: Andre Duarte on 05-28-2024 Unsaturated Iron Binding Capacity 199 ug/dL Low 228-428 [facility] Nucleated red blood cell per centageOrdered By: Andre Duarte on 05-28-2024 Nucleated RBC/100 WBC (Bld) [Ratio] 0 % 0-5 [facility] Oncology Visit Reporton 05-10 Oncology Visit Report Normal [facility] Platelet countOrdered By: Anabell Duarte on 05-28-2024 Platelets (Bld) [#/Vol] 128 10*3/uL Low 150-450 [facility] Potassium (Unsp spec) [Mass/ Vol]Ordered By: Andre Duarte on 05-28-2024 Potassium [Moles/Vol] 4.7 mmol/L 3.3-5.1 [facility] Potassium measurement (mass/ volume)Ordered By: Andre Duarte on 05-28-2024 Potassium (Unsp spec) [Mass/Vol] 4.7 mmol/L 3.3-5.1 [facility] RBC Auto (Bld) [#/Vol]Ordere d By: Andre Duarte on 05-28-2024 RBC (Bld) [#/Vol] 3.23 10*6/uL Low 4.6-6.2 [facility] Retic Panelon 05-28-2024 IM RET FRACTION 8.10 Normal 3.00-15.90 [facility] Comment on above: Performed By: #### L 100.0100, L504.2610, L100.9950, L503.6550, L500.4050, L503.6030 ####[facility] [address] [place], [address] RET-HE 33.4 pg Normal 30-35 [facility] Comment on above: Performed By: #### L 100.0100, L504.2610, L100.9950, L503.6550, L500.4050, L503.6030 ####[facility] [address] [place], [address] Retic Count 1.39 Normal 0.5-1.5 [facility] Comment on above: Performed By: #### L 100.0100, L504.2610, L100.9950, L503.6550, L500.4050, L503.6030 ####[facility] [address] [place], [address] Reticulocyte hemoglobin equi valent (RET-He) measurementOrdered By: Andre Duarte on 05-28-2024 Hemoglobin (Reticulocytes) [Entitic mass] 33.4 pg 30-35 [facility] Reticulocytes Auto (Bld) [#/ Vol]Ordered By: Andre Duarte on 05-28-2024 Reticulocyte Count 1.39 % 0.5-1.5 [facility] Reticulocytes/100 RBC (Bld) 1.39 % 0.5-1.5 [facility] Serum creatinine measurement (mass/volume)Ordered By: Andre Duarte on 05-28-2024 Creatinine [Mass/Vol] 3.09 mg/dL High 0.70-1.20 [facility] Serum globulin measurementOr dered By: Andre Duarte on 05-28-2024 Globulin (S) [Mass/Vol] 3.2 g/dL 2.2-4.2 [facility] Serum glucose measurement (m ass/volume)Ordered By: Andre Duarte on 05-28-2024 Glucose [Mass/Vol] 70 mg/dL 70-99 [facility] Serum or plasma alanine duque otransferase (ALT) measurementOrdered By: Andre Duarte on 05-28-2024 ALT [Catalytic activity/Vol] 17 U/L <47 [facility] Serum or plasma albumin elmira urement (mass/volume)Ordered By: Andre Duarte on 05-28-2024 Albumin [Mass/Vol] 4.1 g/dL 3.4-4.8 [facility] Serum or plasma albumin/glob ulin mass ratioOrdered By: Andre Duarte on 05-28-2024 Albumin/Globulin [Mass ratio] 1.3 {ratio} 0.9-2.4 [facility] Serum or plasma alkaline lissa sphatase measurementOrdered By: Andre Duarte on 05-28-2024 ALP [Catalytic activity/Vol] 67 U/L 40-129 [facility] Serum or plasma calcium elmira urement (mass/volume)Ordered By: Andre Duarte on 05-28-2024 Calcium [Mass/Vol] 9.7 mg/dL 7.6-11.0 [facility] Serum or plasma ferritin latricia surement (mass/volume)Ordered By: Andre Duarte on 05-28-2024 Ferritin [Mass/Vol] 55 ng/mL 37-417 [facility] Serum or plasma iron saturat ion measurement (mass fraction)Ordered By: Andre Duarte on 05-28-2024 Iron saturation [Mass fraction] 26.0 % 9-55 [facility] Serum or plasma urea nitroge n measurement (mass/volume)Ordered By: Andre Duarte on 05-28-2024 Urea nitrogen [Mass/Vol] 97 mg/dL High 4-19 [facility] Sodium levelOrdered By: Tray Duarte on 05-28-2024 Sodium [Moles/Vol] 143 mmol/L 133-145 [facility] Total proteinOrdered By: Doc Duarte on 05-28-2024 Protein [Mass/Vol] 7.2 g/dL 5.9-8.4 [facility] White blood cell (WBC) count Ordered By: Andre Duarte on 05-28-2024 WBC (Bld) [#/Vol] 7.2 10*3/uL 4.4-11.0 [facility] Oncology Visit Reporton 03-13 Oncology Visit Report Normal [facility] Erythropoietinon 03-26-2024 ERYTHROPOIETIN 15.0 mIU/mL Normal 2.6-18.5 [facility] Comment on above: Result Comment: Phase III Development DxI 800 Immunoassay SystemValues obtained with different assay methods or kits cannotbe used interchangeably. Results cannot be interpreted asabsolute evidence of the presence or absence of malignantdisease.Performed at: [place] [id number] Director: Tanmay Damon PhD, Phone: [phone] Performed By: #### L 500.4050, L100.9950, L503.6030, L3100.1350, L501.5200, L501.6710, L100.0100, L101.9900, L501.2300, L503.0105, L506.0250, L504.2610, L503.6550 ####[facility] [address] [place], [address] C-reactive protein measureme nt by high sensitivity methodOrdered By: Andre Duarte on 03-24-2024 C-Reactive Protein Extended Range < 2.90 mg/L 0.0-3.0 [facility] Comment on above: C-Reactive Protein ( CRP) provides useful information for thediagnosis, therapy and monitoring of inflammatory processesand associated diseases. For the evaluation of Relative Riskfor Cardiovascular Disease, a High Sensitivity CRP (HSCRP)should be ordered. CBC W/Diff, Automatedon 03-12 Absolute Lymph 1.11 X10 3/uL Normal 0.83-4.51 [facility] Comment on above: Performed By: #### L 500.4050, L100.9950, L503.6030, L3100.1350, L501.5200, L501.6710, L100.0100, L101.9900, L501.2300, L503.0105, L506.0250, L504.2610, L503.6550 ####[facility] [address] [place], [place], [phone] Absolute Neut 4.8 X10 3/uL Normal 2.0-7.7 [facility] Comment on above: Performed By: #### L 500.4050, L100.9950, L503.6030, L3100.1350, L501.5200, L501.6710, L100.0100, L101.9900, L501.2300, L503.0105, L506.0250, L504.2610, L503.6550 ####[facility] [address] [place], [place], [phone] Basophils/100 WBC (Bld) 0.6 % Normal 0-1 [facility] Comment on above: Performed By: #### L 500.4050, L100.9950, L503.6030, L3100.1350, L501.5200, L501.6710, L100.0100, L101.9900, L501.2300, L503.0105, L506.0250, L504.2610, L503.6550 ####[facility] [address] [place], [address] Eosinophils/100 WBC (Bld) 4.3 % Normal 0-5 [facility] Comment on above: Performed By: #### L 500.4050, L100.9950, L503.6030, L3100.1350, L501.5200, L501.6710, L100.0100, L101.9900, L501.2300, L503.0105, L506.0250, L504.2610, L503.6550 ####[facility] [address] [place], [phone] Erythrocyte distribution width (RBC) [Ratio] 13.5 % Normal 11.6-14.6 [facility] Comment on above: Performed By: #### L 500.4050, L100.9950, L503.6030, L3100.1350, L501.5200, L501.6710, L100.0100, L101.9900, L501.2300, L503.0105, L506.0250, L504.2610, L503.6550 ####[facility] [address] [place], [phone] Hematocrit (Bld) [Volume fraction] 27.4 % Low 40-54 [facility] Comment on above: Performed By: #### L 500.4050, L100.9950, L503.6030, L3100.1350, L501.5200, L501.6710, L100.0100, L101.9900, L501.2300, L503.0105, L506.0250, L504.2610, L503.6550 ####[facility] [address] [place], [phone]) Hemoglobin (Bld) [Mass/Vol] 8.6 g/dL Low 13.0-16.5 [facility] Comment on above: Performed By: #### L 500.4050, L100.9950, L503.6030, L3100.1350, L501.5200, L501.6710, L100.0100, L101.9900, L501.2300, L503.0105, L506.0250, L504.2610, L503.6550 ####[facility] [address] [facility] [place], [address] IG% 0.300 Normal 0.0-0.9 [facility] Comment on above: Result Comment: IG% - Immature Granulocytes (promyelocytes, myelocytes andmetamyelocytes) > 1% indicates that a LEFT SHIFT is Present. Performed By: #### L 500.4050, L100.9950, L503.6030, L3100.1350, L501.5200, L501.6710, L100.0100, L101.9900, L501.2300, L503.0105, L506.0250, L504.2610, L503.6550 ####[facility] [address] [place], [address] Lymphocytes/100 WBC (Bld) 16.5 % Low 19-41 [facility] Comment on above: Performed By: #### L 500.4050, L100.9950, L503.6030, L3100.1350, L501.5200, L501.6710, L100.0100, L101.9900, L501.2300, L503.0105, L506.0250, L504.2610, L503.6550 ####[facility] [address] [place], [address] MCH (RBC) [Entitic mass] 30.4 pg Normal 27.0-32.0 [facility] Comment on above: Performed By: #### L 500.4050, L100.9950, L503.6030, L3100.1350, L501.5200, L501.6710, L100.0100, L101.9900, L501.2300, L503.0105, L506.0250, L504.2610, L503.6550 ####[facility] [address], [address] MCHC (RBC) [Mass/Vol] 31.4 g/dL Low 32-36 [facility] Comment on above: Performed By: #### L 500.4050, L100.9950, L503.6030, L3100.1350, L501.5200, L501.6710, L100.0100, L101.9900, L501.2300, L503.0105, L506.0250, L504.2610, L503.6550 ####[facility] [address] [place], [address] MCV (RBC) [Entitic vol] 96.8 fL High 80-94 [facility] Comment on above: Performed By: #### L 500.4050, L100.9950, L503.6030, L3100.1350, L501.5200, L501.6710, L100.0100, L101.9900, L501.2300, L503.0105, L506.0250, L504.2610, L503.6550 ####[facility] [address] [place], [address] Monocytes/100 WBC (Bld) 6.8 % Normal 0-10 [facility] Comment on above: Performed By: #### L 500.4050, L100.9950, L503.6030, L3100.1350, L501.5200, L501.6710, L100.0100, L101.9900, L501.2300, L503.0105, L506.0250, L504.2610, L503.6550 ####[facility] [address] [place], [address] Neutrophils/100 WBC (Bld) 71.5 % High 47-70 [facility] Comment on above: Performed By: #### L 500.4050, L100.9950, L503.6030, L3100.1350, L501.5200, L501.6710, L100.0100, L101.9900, L501.2300, L503.0105, L506.0250, L504.2610, L503.6550 ####[facility] [address] [place], [address] Nucleated RBC (Bld) [#/Vol] 0 10*3/uL Normal 0-5 [facility] Comment on above: Performed By: #### L 500.4050, L100.9950, L503.6030, L3100.1350, L501.5200, L501.6710, L100.0100, L101.9900, L501.2300, L503.0105, L506.0250, L504.2610, L503.6550 ####[facility] [address] [place], [place], [phone] Platelet mean volume (Bld) [Entitic vol] 10.8 fL Normal 6.2-12.0 [facility] Comment on above: Performed By: #### L 500.4050, L100.9950, L503.6030, L3100.1350, L501.5200, L501.6710, L100.0100, L101.9900, L501.2300, L503.0105, L506.0250, L504.2610, L503.6550 ####[facility] [address] [place], [address] Platelets (Bld) [#/Vol] 135 10*3/uL Low 150-450 [facility] Comment on above: Performed By: #### L 500.4050, L100.9950, L503.6030, L3100.1350, L501.5200, L501.6710, L100.0100, L101.9900, L501.2300, L503.0105, L506.0250, L504.2610, L503.6550 ####[facility] [address] [place], [address] RBC (Bld) [#/Vol] 2.83 10*6/uL Low 4.6-6.2 [facility] Comment on above: Performed By: #### L 500.4050, L100.9950, L503.6030, L3100.1350, L501.5200, L501.6710, L100.0100, L101.9900, L501.2300, L503.0105, L506.0250, L504.2610, L503.6550 ####[facility] [address] [place], [address] RDW SD 47.8 fl High 35.1-43.9 [facility] Comment on above: Performed By: #### L 500.4050, L100.9950, L503.6030, L3100.1350, L501.5200, L501.6710, L100.0100, L101.9900, L501.2300, L503.0105, L506.0250, L504.2610, L503.6550 ####[facility] [address] [place], [place], [phone] WBC (Bld) [#/Vol] 6.7 10*3/uL Normal 4.4-11.0 [facility] Comment on above: Performed By: #### L 500.4050, L100.9950, L503.6030, L3100.1350, L501.5200, L501.6710, L100.0100, L101.9900, L501.2300, L503.0105, L506.0250, L504.2610, L503.6550 ####[facility] [address] [place], [place], [phone] CRPon 03-24-2024 C-REACTIVE PROT < 2.90 Normal 0.0-3.0 [facility] Comment on above: Order Comment: UNKNO WN1N Result Comment: C-Re active Protein (CRP) provides useful information for thediagnosis, therapy and monitoring of inflammatory processesand associated diseases. For the evaluation of Relative Riskfor Cardiovascular Disease, a High Sensitivity CRP (HSCRP)should be ordered. Performed By: #### L 500.4050, L100.9950, L503.6030, L3100.1350, L501.5200, L501.6710, L100.0100, L101.9900, L501.2300, L503.0105, L506.0250, L504.2610, L503.6550 ####[facility] [address] [place], [place], [phone] Comprehensive Metabolic Prof [facility] 03-24-2024 Albumin [Mass/Vol] 3.5 g/dL Normal 3.2-5.0 [facility] Comment on above: Order Comment: UNKNO WN1N Performed By: #### L 500.4050, L100.9950, L503.6030, L3100.1350, L501.5200, L501.6710, L100.0100, L101.9900, L501.2300, L503.0105, L506.0250, L504.2610, L503.6550 ####[facility] [address] [place], [place], [phone] Albumin/Globulin [Mass ratio] 0.9 {ratio} Normal 0.9-2.4 [facility] Comment on above: Order Comment: UNKNO WN1N Performed By: #### L 500.4050, L100.9950, L503.6030, L3100.1350, L501.5200, L501.6710, L100.0100, L101.9900, L501.2300, L503.0105, L506.0250, L504.2610, L503.6550 ####[facility] [address] [place], [place], [phone] ALK P 63 U/L Normal 45-117 [facility] Comment on above: Order Comment: UNKNO WN1N Performed By: #### L 500.4050, L100.9950, L503.6030, L3100.1350, L501.5200, L501.6710, L100.0100, L101.9900, L501.2300, L503.0105, L506.0250, L504.2610, L503.6550 ####[facility] [address] [place], [place], [phone] ALT [Catalytic activity/Vol] 22 U/L Normal 16-61 [facility] Comment on above: Order Comment: UNKNO WN1N Performed By: #### L 500.4050, L100.9950, L503.6030, L3100.1350, L501.5200, L501.6710, L100.0100, L101.9900, L501.2300, L503.0105, L506.0250, L504.2610, L503.6550 ####[facility] [address] [place], [address] AST [Catalytic activity/Vol] 13 U/L Low 15-37 [facility] Comment on above: Order Comment: UNKNO WN1N Performed By: #### L 500.4050, L100.9950, L503.6030, L3100.1350, L501.5200, L501.6710, L100.0100, L101.9900, L501.2300, L503.0105, L506.0250, L504.2610, L503.6550 ####[facility] [address] [place], [place], [phone] Bilirubin [Mass/Vol] 0.40 mg/dL Normal 0.20-1.00 [facility] Comment on above: Order Comment: UNKNO WN1N Result Comment: For patients on eltrombopag therapy, use of Dimension [place] TBIL is not recommended. Performed By: #### L 500.4050, L100.9950, L503.6030, L3100.1350, L501.5200, L501.6710, L100.0100, L101.9900, L501.2300, L503.0105, L506.0250, L504.2610, L503.6550 ####[facility] [address] [place], [place], [phone] BUN/CRE 35.6 RATIO High 10-20 [facility] Comment on above: Order Comment: UNKNO WN1N Performed By: #### L 500.4050, L100.9950, L503.6030, L3100.1350, L501.5200, L501.6710, L100.0100, L101.9900, L501.2300, L503.0105, L506.0250, L504.2610, L503.6550 ####[facility] [address] [place], [place], [phone](526) CA,Total 10.0 mg/dL Normal 8.5-10.1 [facility] Comment on above: Order Comment: UNKNO WN1N Performed By: #### L 500.4050, L100.9950, L503.6030, L3100.1350, L501.5200, L501.6710, L100.0100, L101.9900, L501.2300, L503.0105, L506.0250, L504.2610, L503.6550 ####[facility] [address] [place], [place], [phone] Chloride [Moles/Vol] 110 mmol/L High 98-107 [facility] Comment on above: Order Comment: UNKNO WN1N Performed By: #### L 500.4050, L100.9950, L503.6030, L3100.1350, L501.5200, L501.6710, L100.0100, L101.9900, L501.2300, L503.0105, L506.0250, L504.2610, L503.6550 ####[facility] [address] [place], [place], [phone] CO2 [Moles/Vol] 28.0 mmol/L Normal 21.0-32.0 [facility] Comment on above: Order Comment: UNKNO WN1N Performed By: #### L 500.4050, L100.9950, L503.6030, L3100.1350, L501.5200, L501.6710, L100.0100, L101.9900, L501.2300, L503.0105, L506.0250, L504.2610, L503.6550 ####[facility] [address] [place], [place], [phone] Creatinine [Mass/Vol] 2.53 mg/dL High 0.70-1.30 [facility] Comment on above: Order Comment: UNKNO WN1N Result Comment: The validity of the calculated GFR GFRAA in patients over70 years has not been determined. Clinical correlation isessential. Performed By: #### L 500.4050, L100.9950, L503.6030, L3100.1350, L501.5200, L501.6710, L100.0100, L101.9900, L501.2300, L503.0105, L506.0250, L504.2610, L503.6550 ####[facility] [address] [place], [place], [phone] EST GFR - AA 31 mL/min Low >60 [facility] Comment on above: Order Comment: UNKNO WN1N Result Comment: Afri can Slovenian GFR Calc Performed By: #### L 500.4050, L100.9950, L503.6030, L3100.1350, L501.5200, L501.6710, L100.0100, L101.9900, L501.2300, L503.0105, L506.0250, L504.2610, L503.6550 ####[facility] [address] [place], [place], [phone] GAP 6 Normal 5-15 [facility] Comment on above: Order Comment: UNKNO WN1N Performed By: #### L 500.4050, L100.9950, L503.6030, L3100.1350, L501.5200, L501.6710, L100.0100, L101.9900, L501.2300, L503.0105, L506.0250, L504.2610, L503.6550 ####[facility] [address] [place], [place], [phone] GFR/1.73 sq M.predicted among non-blacks MDRD (S/P/Bld) [Vol rate/Area] 26 mL/min/{1.73_m2} Low >60 [facility] Comment on above: Order Comment: UNKNO WN1N Result Comment: Non- GFR Calc Performed By: #### L 500.4050, L100.9950, L503.6030, L3100.1350, L501.5200, L501.6710, L100.0100, L101.9900, L501.2300, L503.0105, L506.0250, L504.2610, L503.6550 ####[facility] [address] [place], [place], [phone] Globulin (S) [Mass/Vol] 3.7 g/dL Normal 2.2-4.2 [facility] Comment on above: Order Comment: UNKNO WN1N Performed By: #### L 500.4050, L100.9950, L503.6030, L3100.1350, L501.5200, L501.6710, L100.0100, L101.9900, L501.2300, L503.0105, L506.0250, L504.2610, L503.6550 ####[facility] [address] [place], [place], [phone] Glucose [Mass/Vol] 83 mg/dL Normal 74-106 [facility] Comment on above: Order Comment: UNKNO WN1N Performed By: #### L 500.4050, L100.9950, L503.6030, L3100.1350, L501.5200, L501.6710, L100.0100, L101.9900, L501.2300, L503.0105, L506.0250, L504.2610, L503.6550 ####[facility] [address] [place], [address] Potassium [Moles/Vol] 4.6 mmol/L Normal 3.5-5.1 [facility] Comment on above: Order Comment: UNKNO WN1N Performed By: #### L 500.4050, L100.9950, L503.6030, L3100.1350, L501.5200, L501.6710, L100.0100, L101.9900, L501.2300, L503.0105, L506.0250, L504.2610, L503.6550 ####[facility] [address] [place], [address] Sodium [Moles/Vol] 143 mmol/L Normal 136-145 [facility] Comment on above: Order Comment: UNKNO WN1N Performed By: #### L 500.4050, L100.9950, L503.6030, L3100.1350, L501.5200, L501.6710, L100.0100, L101.9900, L501.2300, L503.0105, L506.0250, L504.2610, L503.6550 ####[facility] [address] [place], [address] T PROT 7.2 g/dL Normal 6.4-8.2 [facility] Comment on above: Order Comment: UNKNO WN1N Performed By: #### L 500.4050, L100.9950, L503.6030, L3100.1350, L501.5200, L501.6710, L100.0100, L101.9900, L501.2300, L503.0105, L506.0250, L504.2610, L503.6550 ####[facility] [address] [place], [place], [phone] Urea nitrogen [Mass/Vol] 90 mg/dL High 7-18 [facility] Comment on above: Order Comment: UNKNO WN1N Performed By: #### L 500.4050, L100.9950, L503.6030, L3100.1350, L501.5200, L501.6710, L100.0100, L101.9900, L501.2300, L503.0105, L506.0250, L504.2610, L503.6550 ####[facility] [address] [place], [place], [phone] Erythrocyte Sed Rateon 03-24 SED RATE 31 mm/hr High 0-20 [facility] Comment on above: Performed By: #### L 500.4050, L100.9950, L503.6030, L3100.1350, L501.5200, L501.6710, L100.0100, L101.9900, L501.2300, L503.0105, L506.0250, L504.2610, L503.6550 ####[facility] [address] [place], [place], [phone] Erythrocyte sedimentation ra teOrdered By: Andre Duarte on 03-24-2024 ESR (Bld) [Velocity] 31 mm/h [facility] 0-20 [facility] Erythropoietin (EPO) QnOrder ed By: Andre Duarte on 03-24-2024 Erythropoietin 15.0 mIU/mL 2.6-18.5 [facility] Comment on above: [employer] DxI 800 Immunoassay SystemValues obtained with different assay methods or kits cannotbe used interchangeably. Results cannot be interpreted asabsolute evidence of the presence or absence of malignantdisease.Performed at: - [facility] [place], [place] [id number] Director: Tanmay Damon PhD, Phone: [phone] Estimated glomerular filtrat ion rate (GFR) AmericanOrdered By: Andre Duarte on 03-24-2024 Estimated GFR (MDRD) Amer 31 mL/min Low >60 [facility] Comment on above: GFR Calc Ferritinon 03-24-2024 Ferritin [Mass/Vol] 43 ng/mL Normal 26-388 [facility] Comment on above: Order Comment: UNKNO WN1N Performed By: #### L 500.4050, L100.9950, L503.6030, L3100.1350, L501.5200, L501.6710, L100.0100, L101.9900, L501.2300, L503.0105, L506.0250, L504.2610, L503.6550 ####[facility] [address] [place], [place], [id number] Folates, (Folic Acid)on 03-12 FOLATES 11.90 ng/mL Normal 3.1-55.4 [facility] Comment on above: Order Comment: UNKNO WN1N Performed By: #### L 500.4050, L100.9950, L503.6030, L3100.1350, L501.5200, L501.6710, L100.0100, L101.9900, L501.2300, L503.0105, L506.0250, L504.2610, L503.6550 ####[facility] [address] [place], [address] Folic acid measurementOrdere d By: Andre Duarte on 03-24-2024 Folate 11.90 ng/mL 3.1-55.4 [facility] Iron+Iron Binding Capacityon 03-24-2024 Iron [Mass/Vol] 44 ug/dL Low 65-175 [facility] Comment on above: Order Comment: UNKNO WN1N Performed By: #### L 500.4050, L100.9950, L503.6030, L3100.1350, L501.5200, L501.6710, L100.0100, L101.9900, L501.2300, L503.0105, L506.0250, L504.2610, L503.6550 ####[facility] [address] [place], [place], [phone] IRON SATURATION 15.0 Normal 15.0-55.0 [facility] Comment on above: Order Comment: UNKNO WN1N Performed By: #### L 500.4050, L100.9950, L503.6030, L3100.1350, L501.5200, L501.6710, L100.0100, L101.9900, L501.2300, L503.0105, L506.0250, L504.2610, L503.6550 ####[facility] [address] [place], [place], [phone] TIBC 294 ug/dL Normal 250-450 [facility] Comment on above: Order Comment: UNKNO WN1N Performed By: #### L 500.4050, L100.9950, L503.6030, L3100.1350, L501.5200, L501.6710, L100.0100, L101.9900, L501.2300, L503.0105, L506.0250, L504.2610, L503.6550 ####[facility] [address] [place], [place], [id number] LDHon 03-24-2024 LDH 143 U/L Normal 87-241 [facility] Comment on above: Order Comment: UNKNO WN1N Performed By: #### L 500.4050, L100.9950, L503.6030, L3100.1350, L501.5200, L501.6710, L100.0100, L101.9900, L501.2300, L503.0105, L506.0250, L504.2610, L503.6550 ####[facility] [address] [place], [address] Magnesiumon 03-24-2024 Magnesium [Mass/Vol] 1.7 mg/dL Normal 1.6-2.6 [facility] Comment on above: Order Comment: UNKNO WN1N Performed By: #### L 500.4050, L100.9950, L503.6030, L3100.1350, L501.5200, L501.6710, L100.0100, L101.9900, L501.2300, L503.0105, L506.0250, L504.2610, L503.6550 ####[facility] [address] [place], [place], [id number] Magnesium measurementOrdered By: Andre Duarte on 03-24-2024 Magnesium [Mass/Vol] 1.7 mg/dL 1.6-2.6 [facility] Oncology Visit Reporton 03-12 Oncology Visit Report Normal [facility] Phosphoruson 03-24-2024 Phosphate [Mass/Vol] 4.0 mg/dL Normal 2.5-4.9 [facility] Comment on above: Order Comment: UNKNO WN1N Performed By: #### L 500.4050, L100.9950, L503.6030, L3100.1350, L501.5200, L501.6710, L100.0100, L101.9900, L501.2300, L503.0105, L506.0250, L504.2610, L503.6550 ####[facility] [address] [place], [place], [id number] Phosphorus measurementOrdere d By: Andre Duarte on 03-24-2024 Phosphorus Level 4.0 mg/dL 2.5-4.9 [facility] Retic Panelon 03-24-2024 IM RET FRACTION 20.20 High 3.00-15.90 [facility] Comment on above: Performed By: #### L 500.4050, L100.9950, L503.6030, L3100.1350, L501.5200, L501.6710, L100.0100, L101.9900, L501.2300, L503.0105, L506.0250, L504.2610, L503.6550 ####[facility] [address] [place], [address] RET-HE 32.7 pg Normal 30-35 [facility] Comment on above: Performed By: #### L 500.4050, L100.9950, L503.6030, L3100.1350, L501.5200, L501.6710, L100.0100, L101.9900, L501.2300, L503.0105, L506.0250, L504.2610, L503.6550 ####[facility] [address] [place], [address] Retic Count 4.14 High 0.5-1.5 [facility] Comment on above: Performed By: #### L 500.4050, L100.9950, L503.6030, L3100.1350, L501.5200, L501.6710, L100.0100, L101.9900, L501.2300, L503.0105, L506.0250, L504.2610, L503.6550 ####[facility] [address] [place], [address] Serum or plasma erythropoiet in (EPO) measurement (units/volume)Ordered By: Andre Duarte on 03-24-2024 Erythropoietin (EPO) Qn 15.0 mIU/mL 2.6-18.5 [facility] Comment on above: [employer] DxI 800 Immunoassay SystemValues obtained with different assay methods or kits cannotbe used interchangeably. Results cannot be interpreted asabsolute evidence of the presence or absence of malignantdisease.Performed at: [address] [id number] Director: Tanmay Damon PhD, Phone: [phone] Vitamin B12on 03-24-2024 Cobalamin (Vitamin B12) [Mass/Vol] 584 pg/mL Normal 211-911 [facility] Comment on above: Performed By: #### L 500.4050, L100.9950, L503.6030, L3100.1350, L501.5200, L501.6710, L100.0100, L101.9900, L501.2300, L503.0105, L506.0250, L504.2610, L503.6550 ####[facility] [address] [place], [address] Vitamin B12 measurementOrder ed By: Andre Duarte on 03-24-2024 Cobalamin (Vitamin B12) [Mass/Vol] 584 pg/mL 211-911 [facility] Gastroenterology Visit Repor ton 03-17-2024 Gastroenterology Visit Report Normal [facility] Absolute neutrophil countOrd ered By: Yuridia Hernandez on 03-14-2024 Neutrophils (Bld) [#/Vol] 4.5 10*3/uL 2.0-7.7 [facility] Basic Metabolic Profile (BMP )on 03-14-2024 BUN/CRE 28.6 RATIO High 10-20 [facility] Comment on above: Performed By: #### L 100.0100, L500.2500, L501.0900 ####[facility] [address] [place], [address] CA,Total 9.9 mg/dL Normal 8.5-10.1 [facility] Comment on above: Performed By: #### L 100.0100, L500.2500, L501.0900 ####[facility] [address] [place], [address] Chloride [Moles/Vol] 104 mmol/L Normal 98-107 [facility] Comment on above: Performed By: #### L 100.0100, L500.2500, L501.0900 ####[facility] [address] [place], [address] CO2 [Moles/Vol] 31.0 mmol/L Normal 21.0-32.0 [facility] Comment on above: Performed By: #### L 100.0100, L500.2500, L501.0900 ####[facility] [address] [place], [address] Creatinine [Mass/Vol] 2.94 mg/dL High 0.70-1.30 [facility] Comment on above: Result Comment: The validity of the calculated GFR GFRAA in patients over70 years has not been determined. Clinical correlation isessential. Performed By: #### L 100.0100, L500.2500, L501.0900 ####[facility] [address] [place], [address] EST GFR - AA 26 mL/min Low >60 [facility] Comment on above: Result Comment: Afri can Slovenian GFR Calc Performed By: #### L 100.0100, L500.2500, L501.0900 ####[facility] [address] [place], [address] GAP 6 Normal 5-15 [facility] Comment on above: Performed By: #### L 100.0100, L500.2500, L501.0900 ####[facility] [address] [place], [address] GFR/1.73 sq M.predicted among non-blacks MDRD (S/P/Bld) [Vol rate/Area] 22 mL/min/{1.73_m2} Low >60 [facility] Comment on above: Result Comment: Non- GFR Calc Performed By: #### L 100.0100, L500.2500, L501.0900 ####[facility] [address] [place], [address] Glucose [Mass/Vol] 290 mg/dL High 74-106 [facility] Comment on above: Result Comment: Gluc ose result greater than or equal to 200 mg/dLsuggests DIABETES MELLITUS per A.D.A. criteria. Performed By: #### L 100.0100, L500.2500, L501.0900 ####[facility] [address] [place], [address] Potassium [Moles/Vol] 5.3 mmol/L High 3.5-5.1 [facility] Comment on above: Performed By: #### L 100.0100, L500.2500, L501.0900 ####[facility] [address] [place], [address] Sodium [Moles/Vol] 141 mmol/L Normal 136-145 [facility] Comment on above: Performed By: #### L 100.0100, L500.2500, L501.0900 ####[facility] [address] [place], [address] Urea nitrogen [Mass/Vol] 84 mg/dL High 7-18 [facility] Comment on above: Performed By: #### L 100.0100, L500.2500, L501.0900 ####[facility] [address] [place], [address] Basophil percentageOrdered B y: Yuridia Hernandez on 03-14-2024 Basophils/100 WBC (Bld) 0.5 % 0-1 [facility] Blood urea nitrogen (BUN)/cr eatinine ratioOrdered By: Yuridia Hernandez on 03-14-2024 Urea nitrogen/Creatinine [Mass ratio] 28.6 mg/mg High 10-20 [facility] CBC W/Diff, Automatedon Absolute Lymph 1.03 X10 3/uL Normal 0.83-4.51 [facility] Comment on above: Performed By: #### L 100.0100, L500.2500, L501.0900 ####[facility] [address] [place], [address] Absolute Neut 4.5 X10 3/uL Normal 2.0-7.7 [facility] Comment on above: Performed By: #### L 100.0100, L500.2500, L501.0900 ####[facility] [address] [place], [address] Basophils/100 WBC (Bld) 0.5 % Normal 0-1 [facility] Comment on above: Performed By: #### L 100.0100, L500.2500, L501.0900 ####[facility] [address] [place], [address] Eosinophils/100 WBC (Bld) 2.3 % Normal 0-5 [facility] Comment on above: Performed By: #### L 100.0100, L500.2500, L501.0900 ####[facility] [address] [place], [address] Erythrocyte distribution width (RBC) [Ratio] 13.5 % Normal 11.6-14.6 [facility] Comment on above: Performed By: #### L 100.0100, L500.2500, L501.0900 ####[facility] [address] [place], [address] Hematocrit (Bld) [Volume fraction] 29.3 % Low 40-54 [facility] Comment on above: Performed By: #### L 100.0100, L500.2500, L501.0900 ####[facility] [address] [place], [address] Hemoglobin (Bld) [Mass/Vol] 8.9 g/dL Low 13.0-16.5 [facility] Comment on above: Performed By: #### L 100.0100, L500.2500, L501.0900 ####[facility] [address] [place], [address] IG% 0.500 Normal 0.0-0.9 [facility] Comment on above: Result Comment: IG% - Immature Granulocytes (promyelocytes, myelocytes andmetamyelocytes) > 1% indicates that a LEFT SHIFT is Present. Performed By: #### L 100.0100, L500.2500, L501.0900 ####[facility] [address] [place], [address] Lymphocytes/100 WBC (Bld) 16.6 % Low 19-41 [facility] Comment on above: Performed By: #### L 100.0100, L500.2500, L501.0900 ####[facility] [address] [place], [address] MCH (RBC) [Entitic mass] 31.0 pg Normal 27.0-32.0 [facility] Comment on above: Performed By: #### L 100.0100, L500.2500, L501.0900 ####[facility] [address] [place], [address] MCHC (RBC) [Mass/Vol] 30.4 g/dL Low 32-36 [facility] Comment on above: Performed By: #### L 100.0100, L500.2500, L501.0900 ####[facility] [address] [place], [address] MCV (RBC) [Entitic vol] 102.1 fL High 80-94 [facility] Comment on above: Performed By: #### L 100.0100, L500.2500, L501.0900 ####[facility] [address] [place], [address] Monocytes/100 WBC (Bld) 7.7 % Normal 0-10 [facility] Comment on above: Performed By: #### L 100.0100, L500.2500, L501.0900 ####[facility] [address] [place], [address] Neutrophils/100 WBC (Bld) 72.4 % High 47-70 [facility] Comment on above: Performed By: #### L 100.0100, L500.2500, L501.0900 ####[facility] [address] [place], [address] Nucleated RBC (Bld) [#/Vol] 0 10*3/uL Normal 0-5 [facility] Comment on above: Performed By: #### L 100.0100, L500.2500, L501.0900 ####[facility] [address] [place], [address] Platelet mean volume (Bld) [Entitic vol] 11.9 fL Normal 6.2-12.0 [facility] Comment on above: Performed By: #### L 100.0100, L500.2500, L501.0900 ####[facility] [address] [place], [address] Platelets (Bld) [#/Vol] 112 10*3/uL Low 150-450 [facility] Comment on above: Performed By: #### L 100.0100, L500.2500, L501.0900 ####[facility] [address] [place], [address] RBC (Bld) [#/Vol] 2.87 10*6/uL Low 4.6-6.2 [facility] Comment on above: Performed By: #### L 100.0100, L500.2500, L501.0900 ####[facility] [address] [place], [address] RDW SD 51.0 fl High 35.1-43.9 [facility] Comment on above: Performed By: #### L 100.0100, L500.2500, L501.0900 ####[facility] [address] [place], [address] WBC (Bld) [#/Vol] 6.2 10*3/uL Normal 4.4-11.0 [facility] Comment on above: Performed By: #### L 100.0100, L500.2500, L501.0900 ####[facility] [address] [place], [address] Carbon dioxide measurementOr dered By: Yuridia Hernandez on 03-14-2024 CO2 [Moles/Vol] 31.0 mmol/L 21.0-32.0 [facility] Chloride measurementOrdered By: Yuridia Hernandez on 03-14-2024 Chloride [Moles/Vol] 104 mmol/L 98-107 [facility] Eosinophil percentageOrdered By: Yuridia Hernandez on 03-14-2024 Eosinophils/100 WBC (Bld) 2.3 % 0-5 [facility] Erythrocyte distribution wid th (RBC) [Ratio]Ordered By: Yuridia Hernandez on 03-14-2024 Erythrocyte distribution width (RBC) [Entitic vol] 51.0 fL High 35.1-43.9 [facility] Erythrocyte distribution wid th ratioOrdered By: Yuridia Hernandez on 03-14-2024 Erythrocyte distribution width (RBC) [Ratio] 13.5 % 11.6-14.6 [facility] Estimated glomerular filtrat ion rate (GFR) AmericanOrdered By: Yuridia Hernandez on 03-14-2024 Estimated GFR (MDRD) Amer 26 mL/min Low >60 [facility] Comment on above: GFR Calc Glomerular filtration rate ( GFR) estimationOrdered By: Yuridia Hernandez on 03-14-2024 Estimated GFR (MDRD) Non-Af Amer 22 mL/min Low >60 [facility] Comment on above: Non- GFR Calc Glucose measurementOrdered B y: Yuridia Hernandez on 03-14-2024 Glucose [Mass/Vol] 290 mg/dL High 74-106 [facility] Comment on above: Glucose result great er than or equal to 200 mg/dLsuggests DIABETES MELLITUS per A.D.A. criteria. Hematocrit Auto (Bld) [Volum e fraction]Ordered By: Yuridia Hernandez on 03-14-2024 Hematocrit (Bld) [Volume fraction] 29.3 % Low 40-54 [facility] Hemoglobin measurementOrdere d By: Yuridia Hernandez on 03-14-2024 Hemoglobin (Bld) [Mass/Vol] 8.9 g/dL Low 13.0-16.5 [facility] Immature granulocytes/100 WB C Auto (Bld)Ordered By: Yuridia Hernandez on 03-14-2024 Immature granulocytes/100 WBC (Bld) 0.500 % 0.0-0.9 [facility] Comment on above: IG% - Immature Granu locytes (promyelocytes, myelocytes and metamyelocytes) > 1% indicates that a LEFT SHIFT is Present. Lymphocytes Auto (Unsp spec) [#/Vol]Ordered By: Yuridia Hernandez on 03-14-2024 Lymphocytes (Bld) [#/Vol] 1.03 10*3/uL 0.83-4.51 [facility] Lymphocytes/100 WBC Auto (Un sp spec)Ordered By: Yuridia Hernandez on 03-14-2024 Lymphocytes/100 WBC (Bld) 16.6 % Low 19-41 [facility] MCV (mean corpuscular volume ) determinationOrdered By: Yuridia Hernandez on 03-14-2024 MCV (RBC) [Entitic vol] 102.1 fL High 80-94 [facility] Mean corpuscular hemoglobin (MCH) determinationOrdered By: Yuridia Hernandez on 03-14-2024 MCH (RBC) [Entitic mass] 31.0 pg 27.0-32.0 [facility] Mean corpuscular hemoglobin concentration (MCHC) determinationOrdered By: Yuridia Hernandez on 03-14-2024 MCHC (RBC) [Mass/Vol] 30.4 g/dL Low 32-36 [facility] Mean platelet volume determi nationOrdered By: Yuridia Hernandez on 03-14-2024 Platelet mean volume (Bld) [Entitic vol] 11.9 fL 6.2-12.0 [facility] Monocyte percentageOrdered B y: Yuridia Hernandez on 03-14-2024 Monocytes/100 WBC (Bld) 7.7 % 0-10 [facility] Neutrophil percentageOrdered By: Yuridia Hernandez on 03-14-2024 Neutrophils/100 WBC (Bld) 72.4 % High 47-70 [facility] Nucleated red blood cell per centageOrdered By: Yuridia Hernandez on 03-14-2024 Nucleated RBC/100 WBC (Bld) [Ratio] 0 % 0-5 [facility] Platelet countOrdered By: Mike Hernandez on 03-14-2024 Platelets (Bld) [#/Vol] 112 10*3/uL Low 150-450 [facility] Potassium measurementOrdered By: Yuridia Hernandez on 03-14-2024 Potassium [Moles/Vol] 5.3 mmol/L High 3.5-5.1 [facility] Protein+Creatinine Ratio,Uri neon 03-14-2024 PROT:CRE RATIO 329 mg/g CRE High 0-200 [facility] Comment on above: Performed By: #### L 100.0100, L500.2500, L501.0900 ####[facility] [address] [place], [address] Protein (U) [Mass/Vol] 7.7 mg/dL Normal <11.9 [facility] Comment on above: Performed By: #### L 100.0100, L500.2500, L501.0900 ####[facility] [address] [place], [address] UR CREAT 23.40 mg/dL Normal NO RANGE EST. [facility] Comment on above: Performed By: #### L 100.0100, L500.2500, L501.0900 ####[facility] [address] [place], [address] Protein/Creatinine (U) [Mass ratio]Ordered By: Yuridia Hernandez on 03-14-2024 Urine Protein/Creatinine Ratio 329 mg/g CRE High 0-200 [facility] RBC Auto (Bld) [#/Vol]Ordere d By: Yuridia Hernandez on 03-14-2024 RBC (Bld) [#/Vol] 2.87 10*6/uL Low 4.6-6.2 [facility] Random urine protein measure mentOrdered By: Yuridia Hernandez on 03-14-2024 Protein (U) [Mass/Vol] 7.7 mg/dL 0.0-11.8 [facility] Serum anion gap measurementO rdered By: Yuridia Hernandez on 03-14-2024 Anion gap [Moles/Vol] 6 mmol/L 5-15 [facility] Serum or plasma calcium elmira urement (mass/volume)Ordered By: Yuridia Hernandez on 03-14-2024 Calcium [Mass/Vol] 9.9 mg/dL 8.5-10.1 [facility] Serum or plasma creatinine m easurement (mass/volume)Ordered By: Yuridia Hernandez on 03-14-2024 Creatinine [Mass/Vol] 2.94 mg/dL High 0.70-1.30 [facility] Comment on above: The validity of the calculated GFR & GFRAA in patients over 70 years has not been determined. Clinical correlation is essential. Serum or plasma urea nitroge n measurement (mass/volume)Ordered By: Yuridia Hernandez on 03-14-2024 Urea nitrogen [Mass/Vol] 84 mg/dL High - [facility] Sodium levelOrdered By: Yuridia Hernandez on 03-14-2024 Sodium [Moles/Vol] 141 mmol/L 136-145 [facility] Urine creatinine measurement (mass/volume)Ordered By: Yuridia Hernandez on 03-14-2024 Creatinine (U) [Mass/Vol] 23.40 mg/dL NO RANGE EST. [facility] White blood cell (WBC) count Ordered By: Yuridia Hernandez on 03-14-2024 WBC (Bld) [#/Vol] 6.2 10*3/uL 4.4-11.0 [facility] Basic Metabolic Profile (BMP )on 03-08-2024 BUN Normal 09-26 [facility] Comment on above: Result Comment: Canc elled via OM: Order cancelled - Patient discharged Performed By: #### L 100.0100, L500.2500 ####[facility] [address] [place], [address] BUN/CRE Normal - [facility] Comment on above: Result Comment: Canc elled via OM: Order cancelled - Patient discharged Performed By: #### L 100.0100, L500.2500 ####[facility] [address] [place], [address] CA,Total Normal 8.5-10.1 [facility] Comment on above: Result Comment: Canc elled via OM: Order cancelled - Patient discharged Performed By: #### L 100.0100, L500.2500 ####[facility] [address] [place], [address] CL Normal 98-107 [facility] Comment on above: Result Comment: Canc elled via OM: Order cancelled - Patient discharged Performed By: #### L 100.0100, L500.2500 ####[facility] [address] [place], [address] CO2 Normal 21.0-32.0 [facility] Comment on above: Result Comment: Canc elled via OM: Order cancelled - Patient discharged Performed By: #### L 100.0100, L500.2500 ####[facility] [address] [place], [address] CREAT,SERUM Normal 0.70-1.30 [facility] Comment on above: Result Comment: Canc elled via OM: Order cancelled - Patient discharged Performed By: #### L 100.0100, L500.2500 ####[facility] [address] [place], [address] EST GFR Normal >60 [facility] Comment on above: Result Comment: Canc elled via OM: Order cancelled - Patient discharged Performed By: #### L 100.0100, L500.2500 ####[facility] [address] [place], [address] EST GFR - AA Normal >60 [facility] Comment on above: Result Comment: Canc elled via OM: Order cancelled - Patient discharged Performed By: #### L 100.0100, L500.2500 ####[facility] [address] [place], [address] GAP Normal 5-15 [facility] Comment on above: Result Comment: Canc elled via OM: Order cancelled - Patient discharged Performed By: #### L 100.0100, L500.2500 ####[facility] [address] [place], [address] GLU Normal 74-106 [facility] Comment on above: Result Comment: Canc elled via OM: Order cancelled - Patient discharged Performed By: #### L 100.0100, L500.2500 ####[facility] [address] [place], [address] Potassium Normal 3.5-5.1 [facility] Comment on above: Result Comment: Canc elled via OM: Order cancelled - Patient discharged Performed By: #### L 100.0100, L500.2500 ####[facility] [address] [place], [address] Basic Metabolic Profile (BMP) Normal 136-145 [facility] Comment on above: Result Comment: Canc elled via OM: Order cancelled - Patient discharged Performed By: #### L 100.0100, L500.2500 ####[facility] [address] [place], [address] CBC W/Diff, Automatedon 12-2 Absolute Neut Normal 2.0-7.7 [facility] Comment on above: Result Comment: Canc elled via OM: Order cancelled - Patient discharged Performed By: #### L 100.0100, L500.2500 ####[facility] [address] [place], [address] HCT Normal 40-54 [facility] Comment on above: Result Comment: Canc elled via OM: Order cancelled - Patient discharged Performed By: #### L 100.0100, L500.2500 ####[facility] [address] [place], [address] HGB Normal 13.0-16.5 [facility] Comment on above: Result Comment: Canc elled via OM: Order cancelled - Patient discharged Performed By: #### L 100.0100, L500.2500 ####[facility] [address] [place], [address] MCH Normal 27.0-32.0 [facility] Comment on above: Result Comment: Canc elled via OM: Order cancelled - Patient discharged Performed By: #### L 100.0100, L500.2500 ####[facility] [address] [place], [address] MCHC Normal 32-36 [facility] Comment on above: Result Comment: Canc elled via OM: Order cancelled - Patient discharged Performed By: #### L 100.0100, L500.2500 ####[facility] [address] [place], [address] MCV Normal 80-94 [facility] Comment on above: Result Comment: Canc elled via OM: Order cancelled - Patient discharged Performed By: #### L 100.0100, L500.2500 ####[facility] [address] [place], [address] NEUT% Normal 47-70 [facility] Comment on above: Result Comment: Canc elled via OM: Order cancelled - Patient discharged Performed By: #### L 100.0100, L500.2500 ####[facility] [address] [place], [address] PLT Normal 150-450 [facility] Comment on above: Result Comment: Canc elled via OM: Order cancelled - Patient discharged Performed By: #### L 100.0100, L500.2500 ####[facility] [address] [place], [address] RBC Normal 4.6-6.2 [facility] Comment on above: Result Comment: Canc elled via OM: Order cancelled - Patient discharged Performed By: #### L 100.0100, L500.2500 ####[facility] [address] [place], [address] RDW CV Normal 11.6-14.6 [facility] Comment on above: Result Comment: Canc elled via OM: Order cancelled - Patient discharged Performed By: #### L 100.0100, L500.2500 ####[facility] [address] [place], [address] RDW SD Normal 35.1-43.9 [facility] Comment on above: Result Comment: Canc elled via OM: Order cancelled - Patient discharged Performed By: #### L 100.0100, L500.2500 ####[facility] [address] [place], [address] WBC Normal 4.4-11.0 [facility] Comment on above: Result Comment: Canc elled via OM: Order cancelled - Patient discharged Performed By: #### L 100.0100, L500.2500 ####[facility] [address] [place], [address] Basic Metabolic Profile (BMP )on 03-07-2024 BUN Normal 7-18 [facility] Comment on above: Result Comment: Canc elled via OM: Order cancelled - Patient discharged Performed By: #### L 100.0100, L500.2500 ####[facility] [address] [place], [address] BUN/CRE Normal 10-20 [facility] Comment on above: Result Comment: Canc elled via OM: Order cancelled - Patient discharged Performed By: #### L 100.0100, L500.2500 ####[facility] [address] [place], [address] CA,Total Normal 8.5-10.1 [facility] Comment on above: Result Comment: Canc elled via OM: Order cancelled - Patient discharged Performed By: #### L 100.0100, L500.2500 ####[facility] [address] [place], [address] CL Normal 98-107 [facility] Comment on above: Result Comment: Canc elled via OM: Order cancelled - Patient discharged Performed By: #### L 100.0100, L500.2500 ####[facility] [address] [place], [address] CO2 Normal 21.0-32.0 [facility] Comment on above: Result Comment: Canc elled via OM: Order cancelled - Patient discharged Performed By: #### L 100.0100, L500.2500 ####[facility] [address] [place], [address] CREAT,SERUM Normal 0.70-1.30 [facility] Comment on above: Result Comment: Canc elled via OM: Order cancelled - Patient discharged Performed By: #### L 100.0100, L500.2500 ####[facility] [address] [place], [address] EST GFR Normal >60 [facility] Comment on above: Result Comment: Canc elled via OM: Order cancelled - Patient discharged Performed By: #### L 100.0100, L500.2500 ####[facility] [address] [place], [address] EST GFR - AA Normal >60 [facility] Comment on above: Result Comment: Canc elled via OM: Order cancelled - Patient discharged Performed By: #### L 100.0100, L500.2500 ####[facility] [address] [place], [address] GAP Normal 5-15 [facility] Comment on above: Result Comment: Canc elled via OM: Order cancelled - Patient discharged Performed By: #### L 100.0100, L500.2500 ####[facility] [address] [place], [address] GLU Normal 74-106 [facility] Comment on above: Result Comment: Canc elled via OM: Order cancelled - Patient discharged Performed By: #### L 100.0100, L500.2500 ####[facility] [address] [place], [address] Potassium Normal 3.5-5.1 [facility] Comment on above: Result Comment: Canc elled via OM: Order cancelled - Patient discharged Performed By: #### L 100.0100, L500.2500 ####[facility] [address] [place], [address] Basic Metabolic Profile (BMP) Normal 136-145 [facility] Comment on above: Result Comment: Canc elled via OM: Order cancelled - Patient discharged Performed By: #### L 100.0100, L500.2500 ####[facility] [address] [place], [address] CBC W/Diff, Automatedon 12-2 Absolute Neut Normal 2.0-7.7 [facility] Comment on above: Result Comment: Canc elled via OM: Order cancelled - Patient discharged Performed By: #### L 100.0100, L500.2500 ####[facility] [address] [place], [address] HCT Normal 40-54 [facility] Comment on above: Result Comment: Canc elled via OM: Order cancelled - Patient discharged Performed By: #### L 100.0100, L500.2500 ####[facility] [address] [place], [address] HGB Normal 13.0-16.5 [facility] Comment on above: Result Comment: Canc elled via OM: Order cancelled - Patient discharged Performed By: #### L 100.0100, L500.2500 ####[facility] [address] [place], [address] MCH Normal 27.0-32.0 [facility] Comment on above: Result Comment: Canc elled via OM: Order cancelled - Patient discharged Performed By: #### L 100.0100, L500.2500 ####[facility] [address] [place], [address] MCHC Normal 32-36 [facility] Comment on above: Result Comment: Canc elled via OM: Order cancelled - Patient discharged Performed By: #### L 100.0100, L500.2500 ####[facility] [address] [place], [address] MCV Normal 80-94 [facility] Comment on above: Result Comment: Canc elled via OM: Order cancelled - Patient discharged Performed By: #### L 100.0100, L500.2500 ####[facility] [address] [place], [address] NEUT% Normal 47-70 [facility] Comment on above: Result Comment: Canc elled via OM: Order cancelled - Patient discharged Performed By: #### L 100.0100, L500.2500 ####[facility] [address] [place], [address] PLT Normal 150-450 [facility] Comment on above: Result Comment: Canc elled via OM: Order cancelled - Patient discharged Performed By: #### L 100.0100, L500.2500 ####[facility] [address] [place], [address] RBC Normal 4.6-6.2 [facility] Comment on above: Result Comment: Canc elled via OM: Order cancelled - Patient discharged Performed By: #### L 100.0100, L500.2500 ####[facility] [address] [place], [address] RDW CV Normal 11.6-14.6 [facility] Comment on above: Result Comment: Canc elled via OM: Order cancelled - Patient discharged Performed By: #### L 100.0100, L500.2500 ####[facility] [address] [place], [address] RDW SD Normal 35.1-43.9 [facility] Comment on above: Result Comment: Canc elled via OM: Order cancelled - Patient discharged Performed By: #### L 100.0100, L500.2500 ####[facility] [address] [place], [address] WBC Normal 4.4-11.0 [facility] Comment on above: Result Comment: Canc elled via OM: Order cancelled - Patient discharged Performed By: #### L 100.0100, L500.2500 ####[facility] [address] [place], [address] Basic Metabolic Profile (BMP )on 03-06-2024 BUN Normal 7-18 [facility] Comment on above: Result Comment: Canc elled via OM: Order cancelled - Patient discharged Performed By: #### L 100.0100, L500.2500 ####[facility] [address] [place], [address] BUN/CRE Normal 10-20 [facility] Comment on above: Result Comment: Canc elled via OM: Order cancelled - Patient discharged Performed By: #### L 100.0100, L500.2500 ####[facility] [address] [place], [address] CA,Total Normal 8.5-10.1 [facility] Comment on above: Result Comment: Canc elled via OM: Order cancelled - Patient discharged Performed By: #### L 100.0100, L500.2500 ####[facility] [address] [place], [address] CL Normal 98-107 [facility] Comment on above: Result Comment: Canc elled via OM: Order cancelled - Patient discharged Performed By: #### L 100.0100, L500.2500 ####[facility] [address] [place], [address] CO2 Normal 21.0-32.0 [facility] Comment on above: Result Comment: Canc elled via OM: Order cancelled - Patient discharged Performed By: #### L 100.0100, L500.2500 ####[facility] [address] [place], [address] CREAT,SERUM Normal 0.70-1.30 [facility] Comment on above: Result Comment: Canc elled via OM: Order cancelled - Patient discharged Performed By: #### L 100.0100, L500.2500 ####[facility] [address] [place], [address] EST GFR Normal >60 [facility] Comment on above: Result Comment: Canc elled via OM: Order cancelled - Patient discharged Performed By: #### L 100.0100, L500.2500 ####[facility] [address] [place], [address] EST GFR - AA Normal >60 [facility] Comment on above: Result Comment: Canc elled via OM: Order cancelled - Patient discharged Performed By: #### L 100.0100, L500.2500 ####[facility] [address] [place], [address] GAP Normal 5-15 [facility] Comment on above: Result Comment: Canc elled via OM: Order cancelled - Patient discharged Performed By: #### L 100.0100, L500.2500 ####[facility] [address] [place], [address] GLU Normal 74-106 [facility] Comment on above: Result Comment: Canc elled via OM: Order cancelled - Patient discharged Performed By: #### L 100.0100, L500.2500 ####[facility] [address] [place], [address] Potassium Normal 3.5-5.1 [facility] Comment on above: Result Comment: Canc elled via OM: Order cancelled - Patient discharged Performed By: #### L 100.0100, L500.2500 ####[facility] [address] [place], [address] Basic Metabolic Profile (BMP) Normal 136-145 [facility] Comment on above: Result Comment: Canc elled via OM: Order cancelled - Patient discharged Performed By: #### L 100.0100, L500.2500 ####[facility] [address] [place], [address] CBC W/Diff, Automatedon 12-2 Absolute Neut Normal 2.0-7.7 [facility] Comment on above: Result Comment: Canc elled via OM: Order cancelled - Patient discharged Performed By: #### L 100.0100, L500.2500 ####[facility] [address] [place], [address] HCT Normal 40-54 [facility] Comment on above: Result Comment: Canc elled via OM: Order cancelled - Patient discharged Performed By: #### L 100.0100, L500.2500 ####[facility] [address] [place], [address] HGB Normal 13.0-16.5 [facility] Comment on above: Result Comment: Canc elled via OM: Order cancelled - Patient discharged Performed By: #### L 100.0100, L500.2500 ####[facility] [address] [place], [address] MCH Normal 27.0-32.0 [facility] Comment on above: Result Comment: Canc elled via OM: Order cancelled - Patient discharged Performed By: #### L 100.0100, L500.2500 ####[facility] [address] [place], [address] MCHC Normal 32-36 [facility] Comment on above: Result Comment: Canc elled via OM: Order cancelled - Patient discharged Performed By: #### L 100.0100, L500.2500 ####[facility] [address] [place], [address] MCV Normal 80-94 [facility] Comment on above: Result Comment: Canc elled via OM: Order cancelled - Patient discharged Performed By: #### L 100.0100, L500.2500 ####[facility] [address] [place], [address] NEUT% Normal 47-70 [facility] Comment on above: Result Comment: Canc elled via OM: Order cancelled - Patient discharged Performed By: #### L 100.0100, L500.2500 ####[facility] [address] [place], [address] PLT Normal 150-450 [facility] Comment on above: Result Comment: Canc elled via OM: Order cancelled - Patient discharged Performed By: #### L 100.0100, L500.2500 ####[facility] [address] [place], [address] RBC Normal 4.6-6.2 [facility] Comment on above: Result Comment: Canc elled via OM: Order cancelled - Patient discharged Performed By: #### L 100.0100, L500.2500 ####[facility] [address] [place], [address] RDW CV Normal 11.6-14.6 [facility] Comment on above: Result Comment: Canc elled via OM: Order cancelled - Patient discharged Performed By: #### L 100.0100, L500.2500 ####[facility] [address] [place], [address] RDW SD Normal 35.1-43.9 [facility] Comment on above: Result Comment: Canc elled via OM: Order cancelled - Patient discharged Performed By: #### L 100.0100, L500.2500 ####[facility] [address] [place], [address] WBC Normal 4.4-11.0 [facility] Comment on above: Result Comment: Canc elled via OM: Order cancelled - Patient discharged Performed By: #### L 100.0100, L500.2500 ####[facility] [address] [place], [address] Basic Metabolic Profile (BMP )on 03-05-2024 BUN Normal 7-18 [facility] Comment on above: Result Comment: Canc elled via OM: Order cancelled - Patient discharged Performed By: #### L 100.0100, L500.2500 ####[facility] [address] [place], [address] BUN/CRE Normal 10-20 [facility] Comment on above: Result Comment: Canc elled via OM: Order cancelled - Patient discharged Performed By: #### L 100.0100, L500.2500 ####[facility] [address] [place], [address] CA,Total Normal 8.5-10.1 [facility] Comment on above: Result Comment: Canc elled via OM: Order cancelled - Patient discharged Performed By: #### L 100.0100, L500.2500 ####[facility] [address] [place], [address] CL Normal 98-107 [facility] Comment on above: Result Comment: Canc elled via OM: Order cancelled - Patient discharged Performed By: #### L 100.0100, L500.2500 ####[facility] [address] [place], [address] CO2 Normal 21.0-32.0 [facility] Comment on above: Result Comment: Canc elled via OM: Order cancelled - Patient discharged Performed By: #### L 100.0100, L500.2500 ####[facility] [address] [place], [address] CREAT,SERUM Normal 0.70-1.30 [facility] Comment on above: Result Comment: Canc elled via OM: Order cancelled - Patient discharged Performed By: #### L 100.0100, L500.2500 ####[facility] [address] [place], [address] EST GFR Normal >60 [facility] Comment on above: Result Comment: Canc elled via OM: Order cancelled - Patient discharged Performed By: #### L 100.0100, L500.2500 ####[facility] [address] [place], [address] EST GFR - AA Normal >60 [facility] Comment on above: Result Comment: Canc elled via OM: Order cancelled - Patient discharged Performed By: #### L 100.0100, L500.2500 ####[facility] [address] [place], [address] GAP Normal 5-15 [facility] Comment on above: Result Comment: Canc elled via OM: Order cancelled - Patient discharged Performed By: #### L 100.0100, L500.2500 ####[facility] [address] [place], [address] GLU Normal 74-106 [facility] Comment on above: Result Comment: Canc elled via OM: Order cancelled - Patient discharged Performed By: #### L 100.0100, L500.2500 ####[facility] [address] [place], [address] Potassium Normal 3.5-5.1 [facility] Comment on above: Result Comment: Canc elled via OM: Order cancelled - Patient discharged Performed By: #### L 100.0100, L500.2500 ####[facility] [address] [place], [address] Basic Metabolic Profile (BMP) Normal 136-145 [facility] Comment on above: Result Comment: Canc elled via OM: Order cancelled - Patient discharged Performed By: #### L 100.0100, L500.2500 ####[facility] [address] [place], [address] CBC W/Diff, Automatedon 12-2 Absolute Neut Normal 2.0-7.7 [facility] Comment on above: Result Comment: Canc elled via OM: Order cancelled - Patient discharged Performed By: #### L 100.0100, L500.2500 ####[facility] [address] [place], [address] HCT Normal 40-54 [facility] Comment on above: Result Comment: Canc elled via OM: Order cancelled - Patient discharged Performed By: #### L 100.0100, L500.2500 ####[facility] [address] [place], [address] HGB Normal 13.0-16.5 [facility] Comment on above: Result Comment: Canc elled via OM: Order cancelled - Patient discharged Performed By: #### L 100.0100, L500.2500 ####[facility] [address] [place], [address] MCH Normal 27.0-32.0 [facility] Comment on above: Result Comment: Canc elled via OM: Order cancelled - Patient discharged Performed By: #### L 100.0100, L500.2500 ####[facility] [address] [place], [address] MCHC Normal 32-36 [facility] Comment on above: Result Comment: Canc elled via OM: Order cancelled - Patient discharged Performed By: #### L 100.0100, L500.2500 ####[facility] [address] [place], [address] MCV Normal 80-94 [facility] Comment on above: Result Comment: Canc elled via OM: Order cancelled - Patient discharged Performed By: #### L 100.0100, L500.2500 ####[facility] [address] [place], [address] NEUT% Normal 47-70 [facility] Comment on above: Result Comment: Canc elled via OM: Order cancelled - Patient discharged Performed By: #### L 100.0100, L500.2500 ####[facility] [address] [place], [address] PLT Normal 150-450 [facility] Comment on above: Result Comment: Canc elled via OM: Order cancelled - Patient discharged Performed By: #### L 100.0100, L500.2500 ####[facility] [address] [place], [address] RBC Normal 4.6-6.2 [facility] Comment on above: Result Comment: Canc elled via OM: Order cancelled - Patient discharged Performed By: #### L 100.0100, L500.2500 ####[facility] [address] [place], [address] RDW CV Normal 11.6-14.6 [facility] Comment on above: Result Comment: Canc elled via OM: Order cancelled - Patient discharged Performed By: #### L 100.0100, L500.2500 ####[facility] [address] [place], [address] RDW SD Normal 35.1-43.9 [facility] Comment on above: Result Comment: Canc elled via OM: Order cancelled - Patient discharged Performed By: #### L 100.0100, L500.2500 ####[facility] [address] [place], [address] WBC Normal 4.4-11.0 [facility] Comment on above: Result Comment: Canc elled via OM: Order cancelled - Patient discharged Performed By: #### L 100.0100, L500.2500 ####[facility] [address] [place], [address] Basic Metabolic Profile (BMP )on 03-04-2024 BUN Normal 7-18 [facility] Comment on above: Result Comment: Canc elled via OM: Order cancelled - Patient discharged Performed By: #### L 500.2500, L100.0100 ####[facility] [address] [place], [address] BUN/CRE Normal 10-20 [facility] Comment on above: Result Comment: Canc elled via OM: Order cancelled - Patient discharged Performed By: #### L 500.2500, L100.0100 ####[facility] [address] [place], [address] CA,Total Normal 8.5-10.1 [facility] Comment on above: Result Comment: Canc elled via OM: Order cancelled - Patient discharged Performed By: #### L 500.2500, L100.0100 ####[facility] [address] [place], [address] CL Normal 98-107 [facility] Comment on above: Result Comment: Canc elled via OM: Order cancelled - Patient discharged Performed By: #### L 500.2500, L100.0100 ####[facility] [address] [place], [address] CO2 Normal 21.0-32.0 [facility] Comment on above: Result Comment: Canc elled via OM: Order cancelled - Patient discharged Performed By: #### L 500.2500, L100.0100 ####[facility] [address] [place], [address] CREAT,SERUM Normal 0.70-1.30 [facility] Comment on above: Result Comment: Canc elled via OM: Order cancelled - Patient discharged Performed By: #### L 500.2500, L100.0100 ####[facility] [address] [place], [address] EST GFR Normal >60 [facility] Comment on above: Result Comment: Canc elled via OM: Order cancelled - Patient discharged Performed By: #### L 500.2500, L100.0100 ####[facility] [address] [place], [address] EST GFR - AA Normal >60 [facility] Comment on above: Result Comment: Canc elled via OM: Order cancelled - Patient discharged Performed By: #### L 500.2500, L100.0100 ####[facility] [address] [place], [address] GAP Normal 5-15 [facility] Comment on above: Result Comment: Canc elled via OM: Order cancelled - Patient discharged Performed By: #### L 500.2500, L100.0100 ####[facility] [address] [place], [address] GLU Normal 74-106 [facility] Comment on above: Result Comment: Canc elled via OM: Order cancelled - Patient discharged Performed By: #### L 500.2500, L100.0100 ####[facility] [address] [place], [address] Potassium Normal 3.5-5.1 [facility] Comment on above: Result Comment: Canc elled via OM: Order cancelled - Patient discharged Performed By: #### L 500.2500, L100.0100 ####[facility] [address] [place], [address] Basic Metabolic Profile (BMP) Normal 136-145 [facility] Comment on above: Result Comment: Canc elled via OM: Order cancelled - Patient discharged Performed By: #### L 500.2500, L100.0100 ####[facility] [address] [place], [address] CBC W/Diff, Automatedon 12-2 Absolute Neut Normal 2.0-7.7 [facility] Comment on above: Result Comment: Canc elled via OM: Order cancelled - Patient discharged Performed By: #### L 500.2500, L100.0100 ####[facility] [address] [place], [address] HCT Normal 40-54 [facility] Comment on above: Result Comment: Canc elled via OM: Order cancelled - Patient discharged Performed By: #### L 500.2500, L100.0100 ####[facility] [address] [place], [address] HGB Normal 13.0-16.5 [facility] Comment on above: Result Comment: Canc elled via OM: Order cancelled - Patient discharged Performed By: #### L 500.2500, L100.0100 ####[facility] [address] [place], [address] MCH Normal 27.0-32.0 [facility] Comment on above: Result Comment: Canc elled via OM: Order cancelled - Patient discharged Performed By: #### L 500.2500, L100.0100 ####[facility] [address] [place], [address] MCHC Normal 32-36 [facility] Comment on above: Result Comment: Canc elled via OM: Order cancelled - Patient discharged Performed By: #### L 500.2500, L100.0100 ####[facility] [address] [place], [address] MCV Normal 80-94 [facility] Comment on above: Result Comment: Canc elled via OM: Order cancelled - Patient discharged Performed By: #### L 500.2500, L100.0100 ####[facility] [address] [place], [address] NEUT% Normal 47-70 [facility] Comment on above: Result Comment: Canc elled via OM: Order cancelled - Patient discharged Performed By: #### L 500.2500, L100.0100 ####[facility] [address] [place], [address] PLT Normal 150-450 [facility] Comment on above: Result Comment: Canc elled via OM: Order cancelled - Patient discharged Performed By: #### L 500.2500, L100.0100 ####[facility] [address] [place], [address] RBC Normal 4.6-6.2 [facility] Comment on above: Result Comment: Canc elled via OM: Order cancelled - Patient discharged Performed By: #### L 500.2500, L100.0100 ####[facility] [address] [place], [address] RDW CV Normal 11.6-14.6 [facility] Comment on above: Result Comment: Canc elled via OM: Order cancelled - Patient discharged Performed By: #### L 500.2500, L100.0100 ####[facility] [address] [place], [address] RDW SD Normal 35.1-43.9 [facility] Comment on above: Result Comment: Canc elled via OM: Order cancelled - Patient discharged Performed By: #### L 500.2500, L100.0100 ####[facility] [address] [place], [address] WBC Normal 4.4-11.0 [facility] Comment on above: Result Comment: Canc elled via OM: Order cancelled - Patient discharged Performed By: #### L 500.2500, L100.0100 ####[facility] [address] [place], [address] Basic Metabolic Profile (BMP )on 03-03-2024 BUN Normal 7-18 [facility] Comment on above: Result Comment: Canc elled via OM: Order cancelled - Patient discharged Performed By: #### L 500.2500, L100.0100 ####[facility] [address] [place], [address] BUN/CRE Normal 10-20 [facility] Comment on above: Result Comment: Canc elled via OM: Order cancelled - Patient discharged Performed By: #### L 500.2500, L100.0100 ####[facility] [address] [place], [address] CA,Total Normal 8.5-10.1 [facility] Comment on above: Result Comment: Canc elled via OM: Order cancelled - Patient discharged Performed By: #### L 500.2500, L100.0100 ####[facility] [address] [place], [address] CL Normal 98-107 [facility] Comment on above: Result Comment: Canc elled via OM: Order cancelled - Patient discharged Performed By: #### L 500.2500, L100.0100 ####[facility] [address] [place], [address] CO2 Normal 21.0-32.0 [facility] Comment on above: Result Comment: Canc elled via OM: Order cancelled - Patient discharged Performed By: #### L 500.2500, L100.0100 ####[facility] [address] [place], [address] CREAT,SERUM Normal 0.70-1.30 [facility] Comment on above: Result Comment: Canc elled via OM: Order cancelled - Patient discharged Performed By: #### L 500.2500, L100.0100 ####[facility] [address] [place], [address] EST GFR Normal >60 [facility] Comment on above: Result Comment: Canc elled via OM: Order cancelled - Patient discharged Performed By: #### L 500.2500, L100.0100 ####[facility] [address] [place], [address] EST GFR - AA Normal >60 [facility] Comment on above: Result Comment: Canc elled via OM: Order cancelled - Patient discharged Performed By: #### L 500.2500, L100.0100 ####[facility] [address] [place], [address] GAP Normal 5-15 [facility] Comment on above: Result Comment: Canc elled via OM: Order cancelled - Patient discharged Performed By: #### L 500.2500, L100.0100 ####[facility] [address] [place], [address] GLU Normal 74-106 [facility] Comment on above: Result Comment: Canc elled via OM: Order cancelled - Patient discharged Performed By: #### L 500.2500, L100.0100 ####[facility] [address] [place], [address] Potassium Normal 3.5-5.1 [facility] Comment on above: Result Comment: Canc elled via OM: Order cancelled - Patient discharged Performed By: #### L 500.2500, L100.0100 ####[facility] [address] [place], [address] Basic Metabolic Profile (BMP) Normal 136-145 [facility] Comment on above: Result Comment: Canc elled via OM: Order cancelled - Patient discharged Performed By: #### L 500.2500, L100.0100 ####[facility] [address] [place], [address] CBC W/Diff, Automatedon 12-2 Absolute Neut Normal 2.0-7.7 [facility] Comment on above: Result Comment: Canc elled via OM: Order cancelled - Patient discharged Performed By: #### L 500.2500, L100.0100 ####[facility] [address] [place], [address] HCT Normal 40-54 [facility] Comment on above: Result Comment: Canc elled via OM: Order cancelled - Patient discharged Performed By: #### L 500.2500, L100.0100 ####[facility] [address] [place], [address] HGB Normal 13.0-16.5 [facility] Comment on above: Result Comment: Canc elled via OM: Order cancelled - Patient discharged Performed By: #### L 500.2500, L100.0100 ####[facility] [address] [place], [address] MCH Normal 27.0-32.0 [facility] Comment on above: Result Comment: Canc elled via OM: Order cancelled - Patient discharged Performed By: #### L 500.2500, L100.0100 ####[facility] [address] [place], [address] MCHC Normal 32-36 [facility] Comment on above: Result Comment: Canc elled via OM: Order cancelled - Patient discharged Performed By: #### L 500.2500, L100.0100 ####[facility] [address] [place], [address] MCV Normal 80-94 [facility] Comment on above: Result Comment: Canc elled via OM: Order cancelled - Patient discharged Performed By: #### L 500.2500, L100.0100 ####[facility] [address] [place], [address] NEUT% Normal 47-70 [facility] Comment on above: Result Comment: Canc elled via OM: Order cancelled - Patient discharged Performed By: #### L 500.2500, L100.0100 ####[facility] [address] [place], [address] PLT Normal 150-450 [facility] Comment on above: Result Comment: Canc elled via OM: Order cancelled - Patient discharged Performed By: #### L 500.2500, L100.0100 ####[facility] [address] [place], [address] RBC Normal 4.6-6.2 [facility] Comment on above: Result Comment: Canc elled via OM: Order cancelled - Patient discharged Performed By: #### L 500.2500, L100.0100 ####[facility] [address] [place], [address] RDW CV Normal 11.6-14.6 [facility] Comment on above: Result Comment: Canc elled via OM: Order cancelled - Patient discharged Performed By: #### L 500.2500, L100.0100 ####[facility] [address] [place], [address] RDW SD Normal 35.1-43.9 [facility] Comment on above: Result Comment: Canc elled via OM: Order cancelled - Patient discharged Performed By: #### L 500.2500, L100.0100 ####[facility] [address] [place], [address] WBC Normal 4.4-11.0 [facility] Comment on above: Result Comment: Canc elled via OM: Order cancelled - Patient discharged Performed By: #### L 500.2500, L100.0100 ####[facility] [address] [place], [address] Absolute neutrophil countOrd ered By: Sarai Alcantara on 03-02-2024 Neutrophils (Bld) [#/Vol] 2.6 10*3/uL 2.0-7.7 [facility] Basic Metabolic Profile (BMP )on 03-02-2024 BUN/CRE 29.1 RATIO High 10-20 [facility] Comment on above: Performed By: #### L 100.0100, L500.2500 ####[facility] [address] [place], [address] CA,Total 9.2 mg/dL Normal 8.5-10.1 [facility] Comment on above: Performed By: #### L 100.0100, L500.2500 ####[facility] [address] [place], [address] Chloride [Moles/Vol] 106 mmol/L Normal 98-107 [facility] Comment on above: Performed By: #### L 100.0100, L500.2500 ####[facility] [address] [place], [address] CO2 [Moles/Vol] 29.0 mmol/L Normal 21.0-32.0 [facility] Comment on above: Performed By: #### L 100.0100, L500.2500 ####[facility] [address] [place], [address] Creatinine [Mass/Vol] 2.54 mg/dL High 0.70-1.30 [facility] Comment on above: Result Comment: The validity of the calculated GFR GFRAA in patients over70 years has not been determined. Clinical correlation isessential. Performed By: #### L 100.0100, L500.2500 ####[facility] [address] [place], [address] ECRCL 21.53 ml/min Normal [facility] Comment on above: Performed By: #### L 100.0100, L500.2500 ####[facility] [address] [place], [address] EST GFR - AA 31 mL/min Low >60 [facility] Comment on above: Result Comment: Afri can Slovenian GFR Calc Performed By: #### L 100.0100, L500.2500 ####[facility] [address] [place], [address] GAP 5 Normal 5-15 [facility] Comment on above: Performed By: #### L 100.0100, L500.2500 ####[facility] [address] [place], [address] GFR/1.73 sq M.predicted among non-blacks MDRD (S/P/Bld) [Vol rate/Area] 26 mL/min/{1.73_m2} Low >60 [facility] Comment on above: Result Comment: Non- GFR Calc Performed By: #### L 100.0100, L500.2500 ####[facility] [address] [place], [address] Glucose [Mass/Vol] 156 mg/dL High 74-106 [facility] Comment on above: Result Comment: Fast ing Glucose result greater than or equal to 126 mg/dLsuggests DIABETES MELLITUS per A.D.A. criteria. Performed By: #### L 100.0100, L500.2500 ####[facility] [address] [place], [address] Potassium [Moles/Vol] 4.7 mmol/L Normal 3.5-5.1 [facility] Comment on above: Performed By: #### L 100.0100, L500.2500 ####[facility] [address] [place], [address] Sodium [Moles/Vol] 140 mmol/L Normal 136-145 [facility] Comment on above: Performed By: #### L 100.0100, L500.2500 ####[facility] [address] [place], [address] Urea nitrogen [Mass/Vol] 74 mg/dL High 7-18 [facility] Comment on above: Performed By: #### L 100.0100, L500.2500 ####[facility] [address] [place], [address] Basophil percentageOrdered B y: Sarai Alcantara on 03-02-2024 Basophils/100 WBC (Bld) 0.4 % 0-1 [facility] Bedside Glucoseon 03-02-2024 FINGERSTICK GLU 157 mg/dL High 74-106 [facility] Comment on above: Result Comment: MYKE GEMENT OF PATIENT CARE PER NURSING PROTOCOL Performed By: #### L 501.080 ####[facility] [address] [place], [address] FINGERSTICK GLU 136 mg/dL High 74-106 [facility] Comment on above: Result Comment: MYKE GEMENT OF PATIENT CARE PER NURSING PROTOCOL Performed By: #### L 501.080 ####[facility] [address] [place], [address] FINGERSTICK GLU 157 mg/dL High 74-106 [facility] Comment on above: Result Comment: MYKE GEMENT OF PATIENT CARE PER NURSING PROTOCOL Performed By: #### L 501.080 ####[facility] [address] [place], [address] Blood urea nitrogen (BUN)/cr eatinine ratioOrdered By: Sarai Alcantara on 03-02-2024 Urea nitrogen/Creatinine [Mass ratio] 29.1 mg/mg High 10-20 [facility] CBC W/Diff, Automatedon -2 Absolute Lymph 1.17 X10 3/uL Normal 0.83-4.51 [facility] Comment on above: Performed By: #### L 100.0100, L500.2500 ####[facility] [address] [place], [address] Absolute Neut 2.6 X10 3/uL Normal 2.0-7.7 [facility] Comment on above: Performed By: #### L 100.0100, L500.2500 ####[facility] [address] [place], [address] Basophils/100 WBC (Bld) 0.4 % Normal 0-1 [facility] Comment on above: Performed By: #### L 100.0100, L500.2500 ####[facility] [address] [place], [address] Eosinophils/100 WBC (Bld) 6.3 % High 0-5 [facility] Comment on above: Performed By: #### L 100.0100, L500.2500 ####[facility] [address] [place], [address] Erythrocyte distribution width (RBC) [Ratio] 15.8 % High 11.6-14.6 [facility] Comment on above: Performed By: #### L 100.0100, L500.2500 ####[facility] [address] [place], [address] Hematocrit (Bld) [Volume fraction] 26.5 % Low 40-54 [facility] Comment on above: Performed By: #### L 100.0100, L500.2500 ####[facility] [address] [place], [address] Hemoglobin (Bld) [Mass/Vol] 8.2 g/dL Low 13.0-16.5 [facility] Comment on above: Performed By: #### L 100.0100, L500.2500 ####[facility] [address] [place], [address] IG% 0.700 Normal 0.0-0.9 [facility] Comment on above: Result Comment: IG% - Immature Granulocytes (promyelocytes, myelocytes andmetamyelocytes) > 1% indicates that a LEFT SHIFT is Present. Performed By: #### L 100.0100, L500.2500 ####[facility] [address] [place], [address] Lymphocytes/100 WBC (Bld) 25.5 % Normal 19-41 [facility] Comment on above: Performed By: #### L 100.0100, L500.2500 ####[facility] [address] [place], [address] MCH (RBC) [Entitic mass] 30.7 pg Normal 27.0-32.0 [facility] Comment on above: Performed By: #### L 100.0100, L500.2500 ####[facility] [address] [place], [address] MCHC (RBC) [Mass/Vol] 30.9 g/dL Low 32-36 [facility] Comment on above: Performed By: #### L 100.0100, L500.2500 ####[facility] [address] [place], [address] MCV (RBC) [Entitic vol] 99.3 fL High 80-94 [facility] Comment on above: Performed By: #### L 100.0100, L500.2500 ####[facility] [address] [place], [address] Monocytes/100 WBC (Bld) 10.0 % Normal 0-10 [facility] Comment on above: Performed By: #### L 100.0100, L500.2500 ####[facility] [address] [place], [address] Neutrophils/100 WBC (Bld) 57.1 % Normal 47-70 [facility] Comment on above: Performed By: #### L 100.0100, L500.2500 ####[facility] [address] [place], [address] Nucleated RBC (Bld) [#/Vol] 0 10*3/uL Normal 0-5 [facility] Comment on above: Performed By: #### L 100.0100, L500.2500 ####[facility] [address] [place], [address] Platelet mean volume (Bld) [Entitic vol] 10.2 fL Normal 6.2-12.0 [facility] Comment on above: Performed By: #### L 100.0100, L500.2500 ####[facility] [address] [place], [address] Platelets (Bld) [#/Vol] 142 10*3/uL Low 150-450 [facility] Comment on above: Performed By: #### L 100.0100, L500.2500 ####[facility] [address] [place], [address] RBC (Bld) [#/Vol] 2.67 10*6/uL Low 4.6-6.2 [facility] Comment on above: Performed By: #### L 100.0100, L500.2500 ####[facility] [address] [place], [address] RDW SD 56.8 fl High 35.1-43.9 [facility] Comment on above: Performed By: #### L 100.0100, L500.2500 ####[facility] [address] [place], [address] WBC (Bld) [#/Vol] 4.6 10*3/uL Normal 4.4-11.0 [facility] Comment on above: Performed By: #### L 100.0100, L500.2500 ####[facility] [address] [place], [address] Carbon dioxide measurementOr dered By: Sarai Alcantara on 03-02-2024 CO2 [Moles/Vol] 29.0 mmol/L 21.0-32.0 [facility] Chloride measurementOrdered By: Sarai Alcantara on 03-02-2024 Chloride [Moles/Vol] 106 mmol/L 98-107 [facility] Discharge Instructionon 02-10 Discharge Instruction Normal [facility] Eosinophil percentageOrdered By: Sarai Alcantara on 03-02-2024 Eosinophils/100 WBC (Bld) 6.3 % High 0-5 [facility] Erythrocyte distribution wid th (RBC) [Ratio]Ordered By: Sarai Alcantara on 03-02-2024 Erythrocyte distribution width (RBC) [Entitic vol] 56.8 fL High 35.1-43.9 [facility] Erythrocyte distribution wid th ratioOrdered By: Sarai Alcantara on 03-02-2024 Erythrocyte distribution width (RBC) [Ratio] 15.8 % High 11.6-14.6 [facility] Estimated glomerular filtrat ion rate (GFR) AmericanOrdered By: Sarai Alcantara on 03-02-2024 Estimated GFR (MDRD) Amer 31 mL/min Low >60 [facility] Comment on above: GFR Calc Estimation of creatinine timur aranceOrdered By: Sarai Alcantara on 03-02-2024 Estimated Creatinine Clearance Calc 21.53 ml/min [facility] Glomerular filtration rate ( GFR) estimationOrdered By: Sarai Alcantara on 03-02-2024 Estimated GFR (MDRD) Non-Af Amer 26 mL/min Low >60 [facility] Comment on above: Non- GFR Calc Glucose measurementOrdered B y: Sarai Alcantara on 03-02-2024 Glucose [Mass/Vol] 156 mg/dL High 74-106 [facility] Comment on above: Fasting Glucose resu lt greater than or equal to 126 mg/dL suggests DIABETES MELLITUS per A.D.A. criteria. Glucose measurement at bedsi deOrdered By: Sarai Alcantara on 03-02-2024 Bedside Glucose (Misc Panel) 157 mg/dL High 74-106 [facility] Comment on above: MANAGEMENT OF PATIEN T CARE PER NURSING PROTOCOL Hematocrit Auto (Bld) [Volum e fraction]Ordered By: Sarai Alcantara on 03-02-2024 Hematocrit (Bld) [Volume fraction] 26.5 % Low 40-54 [facility] Hemoglobin measurementOrdere d By: Sarai Alcantara on 03-02-2024 Hemoglobin (Bld) [Mass/Vol] 8.2 g/dL Low 13.0-16.5 [facility] Immature granulocytes/100 WB C Auto (Bld)Ordered By: Sarai Alcantara on 03-02-2024 Immature granulocytes/100 WBC (Bld) 0.700 % 0.0-0.9 [facility] Comment on above: IG% - Immature Granu locytes (promyelocytes, myelocytes and metamyelocytes) > 1% indicates that a LEFT SHIFT is Present. Lymphocytes Auto (Unsp spec) [#/Vol]Ordered By: Sarai Alcantara on 03-02-2024 Lymphocytes (Bld) [#/Vol] 1.17 10*3/uL 0.83-4.51 [facility] Lymphocytes/100 WBC Auto (Un sp spec)Ordered By: Sarai Alcantara on 03-02-2024 Lymphocytes/100 WBC (Bld) 25.5 % 19-41 [facility] MCV (mean corpuscular volume ) determinationOrdered By: Sarai Alcantara on 03-02-2024 MCV (RBC) [Entitic vol] 99.3 fL High 80-94 [facility] Mean corpuscular hemoglobin (MCH) determinationOrdered By: Sarai Alcantara on 03-02-2024 MCH (RBC) [Entitic mass] 30.7 pg 27.0-32.0 [facility] Mean corpuscular hemoglobin concentration (MCHC) determinationOrdered By: Sarai Alcantara on 03-02-2024 MCHC (RBC) [Mass/Vol] 30.9 g/dL Low 32-36 [facility] Mean platelet volume determi nationOrdered By: Sarai Alcantara on 03-02-2024 Platelet mean volume (Bld) [Entitic vol] 10.2 fL 6.2-12.0 [facility] Monocyte percentageOrdered B y: Sarai Alcantara on 03-02-2024 Monocytes/100 WBC (Bld) 10.0 % 0-10 [facility] Neutrophil percentageOrdered By: Sarai Alcantara on 03-02-2024 Neutrophils/100 WBC (Bld) 57.1 % 47-70 [facility] Nucleated red blood cell per centageOrdered By: Sarai Alcantara on 03-02-2024 Nucleated RBC/100 WBC (Bld) [Ratio] 0 % 0-5 [facility] Platelet countOrdered By: Na na Quinton on 03-02-2024 Platelets (Bld) [#/Vol] 142 10*3/uL Low 150-450 [facility] Potassium measurementOrdered By: Sarai Alcantara on 03-02-2024 Potassium [Moles/Vol] 4.7 mmol/L 3.5-5.1 [facility] RBC Auto (Bld) [#/Vol]Ordere d By: Sarai Alcantara on 03-02-2024 RBC (Bld) [#/Vol] 2.67 10*6/uL Low 4.6-6.2 [facility] Serum anion gap measurementO rdered By: Sarai Alcantara on 03-02-2024 Anion gap [Moles/Vol] 5 mmol/L 5-15 [facility] Serum or plasma calcium elmira urement (mass/volume)Ordered By: Sarai Alcantara on 03-02-2024 Calcium [Mass/Vol] 9.2 mg/dL 8.5-10.1 [facility] Serum or plasma creatinine m easurement (mass/volume)Ordered By: Sarai Alcantara on 03-02-2024 Creatinine [Mass/Vol] 2.54 mg/dL High 0.70-1.30 [facility] Comment on above: The validity of the calculated GFR & GFRAA in patients over 70 years has not been determined. Clinical correlation is essential. Serum or plasma urea nitroge n measurement (mass/volume)Ordered By: Sarai Alcantara on 03-02-2024 Urea nitrogen [Mass/Vol] 74 mg/dL High 7-18 [facility] Sodium levelOrdered By: Sarai Alcantara on 03-02-2024 Sodium [Moles/Vol] 140 mmol/L 136-145 [facility] White blood cell (WBC) count Ordered By: Sarai Alcantara on 03-02-2024 WBC (Bld) [#/Vol] 4.6 10*3/uL 4.4-11.0 [facility] AST(SGOT)on 03-01-2024 AST [Catalytic activity/Vol] 15 U/L Normal 15-37 [facility] Comment on above: Performed By: #### L 501.4100, L300.3900, L300.4310 ####[facility] [address] [place], [address] Alanine Aminotransferas (SGP T)on 03-01-2024 ALT [Catalytic activity/Vol] 21 U/L Normal 16-61 [facility] Comment on above: Performed By: #### L 500.2500, L100.0100, L501.4405, L501.9520 ####[facility] [address] [place], [address] Basic Metabolic Profile (BMP )on 03-01-2024 BUN/CRE 25.2 RATIO High 10-20 [facility] Comment on above: Performed By: #### L 500.2500, L100.0100, L501.4405, L501.9520 ####[facility] [address] [place], [address] CA,Total 9.1 mg/dL Normal 8.5-10.1 [facility] Comment on above: Performed By: #### L 500.2500, L100.0100, L501.4405, L501.9520 ####[facility] [address] [place], [address] Chloride [Moles/Vol] 106 mmol/L Normal 98-107 [facility] Comment on above: Performed By: #### L 500.2500, L100.0100, L501.4405, L501.9520 ####[facility] [address] [place], [address] CO2 [Moles/Vol] 29.0 mmol/L Normal 21.0-32.0 [facility] Comment on above: Performed By: #### L 500.2500, L100.0100, L501.4405, L501.9520 ####[facility] [address] [place], [address] Creatinine [Mass/Vol] 2.78 mg/dL High 0.70-1.30 [facility] Comment on above: Result Comment: The validity of the calculated GFR GFRAA in patients over70 years has not been determined. Clinical correlation isessential. Performed By: #### L 500.2500, L100.0100, L501.4405, L501.9520 ####[facility] [address] [place], [address] ECRCL 19.67 ml/min Normal [facility] Comment on above: Performed By: #### L 500.2500, L100.0100, L501.4405, L501.9520 ####[facility] [address] [place], [address] EST GFR - AA 28 mL/min Low >60 [facility] Comment on above: Result Comment: Afri can Slovenian GFR Calc Performed By: #### L 500.2500, L100.0100, L501.4405, L501.9520 ####[facility] [address] [place], [address] GAP 6 Normal 5-15 [facility] Comment on above: Performed By: #### L 500.2500, L100.0100, L501.4405, L501.9520 ####[facility] [address] [place], [address] GFR/1.73 sq M.predicted among non-blacks MDRD (S/P/Bld) [Vol rate/Area] 23 mL/min/{1.73_m2} Low >60 [facility] Comment on above: Result Comment: Non- GFR Calc Performed By: #### L 500.2500, L100.0100, L501.4405, L501.9520 ####[facility] [address] [place], [address] Glucose [Mass/Vol] 158 mg/dL High 74-106 [facility] Comment on above: Result Comment: Fast ing Glucose result greater than or equal to 126 mg/dLsuggests DIABETES MELLITUS per A.D.A. criteria. Performed By: #### L 500.2500, L100.0100, L501.4405, L501.9520 ####[facility] [address] [place], [address] Potassium [Moles/Vol] 4.5 mmol/L Normal 3.5-5.1 [facility] Comment on above: Performed By: #### L 500.2500, L100.0100, L501.4405, L501.9520 ####[facility] [address] [place], [address] Sodium [Moles/Vol] 140 mmol/L Normal 136-145 [facility] Comment on above: Performed By: #### L 500.2500, L100.0100, L501.4405, L501.9520 ####[facility] [address] [place], [address] Urea nitrogen [Mass/Vol] 70 mg/dL High 7-18 [facility] Comment on above: Performed By: #### L 500.2500, L100.0100, L501.4405, L501.9520 ####[facility] [address] [place], [address] Bedside Glucoseon 03-01-2024 FINGERSTICK GLU 217 mg/dL High 74-106 [facility] Comment on above: Result Comment: MYKE GEMENT OF PATIENT CARE PER NURSING PROTOCOL Performed By: #### L 501.080 ####[facility] [address] [place], [address] FINGERSTICK GLU 160 mg/dL High 74-106 [facility] Comment on above: Result Comment: MYKE GEMENT OF PATIENT CARE PER NURSING PROTOCOL Performed By: #### L 501.080 ####[facility] [address] [place], [address] FINGERSTICK GLU 145 mg/dL High 74-106 [facility] Comment on above: Result Comment: MYKE SAGE OF PATIENT CARE PER NURSING PROTOCOL Performed By: #### L 501.080 ####[facility] [address] [place], [address] CBC W/Diff, Automatedon 12-2 Absolute Lymph 1.11 X10 3/uL Normal 0.83-4.51 [facility] Comment on above: Performed By: #### L 500.2500, L100.0100, L501.4405, L501.9520 ####[facility] [address] [place], [address] Absolute Neut 2.1 X10 3/uL Normal 2.0-7.7 [facility] Comment on above: Performed By: #### L 500.2500, L100.0100, L501.4405, L501.9520 ####[facility] [address] [place], [address] Basophils/100 WBC (Bld) 0.8 % Normal 0-1 [facility] Comment on above: Performed By: #### L 500.2500, L100.0100, L501.4405, L501.9520 ####[facility] [address] [place], [address] Eosinophils/100 WBC (Bld) 7.0 % High 0-5 [facility] Comment on above: Performed By: #### L 500.2500, L100.0100, L501.4405, L501.9520 ####[facility] [address] [place], [address] Erythrocyte distribution width (RBC) [Ratio] 16.1 % High 11.6-14.6 [facility] Comment on above: Performed By: #### L 500.2500, L100.0100, L501.4405, L501.9520 ####[facility] [address] [place], [address] Hematocrit (Bld) [Volume fraction] 24.8 % Low 40-54 [facility] Comment on above: Performed By: #### L 500.2500, L100.0100, L501.4405, L501.9520 ####[facility] [address] [place], [address] Hemoglobin (Bld) [Mass/Vol] 8.0 g/dL Low 13.0-16.5 [facility] Comment on above: Performed By: #### L 500.2500, L100.0100, L501.4405, L501.9520 ####[facility] [address] [place], [address] IG% 1.000 High 0.0-0.9 [facility] Comment on above: Result Comment: IG% - Immature Granulocytes (promyelocytes, myelocytes andmetamyelocytes) > 1% indicates that a LEFT SHIFT is Present. Performed By: #### L 500.2500, L100.0100, L501.4405, L501.9520 ####[facility] [address] [place], [address] Lymphocytes/100 WBC (Bld) 27.8 % Normal 19-41 [facility] Comment on above: Performed By: #### L 500.2500, L100.0100, L501.4405, L501.9520 ####[facility] [address] [place], [address] MCH (RBC) [Entitic mass] 31.6 pg Normal 27.0-32.0 [facility] Comment on above: Performed By: #### L 500.2500, L100.0100, L501.4405, L501.9520 ####[facility] [address] [place], [address] MCHC (RBC) [Mass/Vol] 32.3 g/dL Normal 32-36 [facility] Comment on above: Performed By: #### L 500.2500, L100.0100, L501.4405, L501.9520 ####[facility] [address] [place], [address] MCV (RBC) [Entitic vol] 98.0 fL High 80-94 [facility] Comment on above: Performed By: #### L 500.2500, L100.0100, L501.4405, L501.9520 ####[facility] [address] [place], [address] Monocytes/100 WBC (Bld) 12.0 % High 0-10 [facility] Comment on above: Performed By: #### L 500.2500, L100.0100, L501.4405, L501.9520 ####[facility] [address] [place], [address] Neutrophils/100 WBC (Bld) 51.4 % Normal 47-70 [facility] Comment on above: Performed By: #### L 500.2500, L100.0100, L501.4405, L501.9520 ####[facility] [address] [place], [address] Nucleated RBC (Bld) [#/Vol] 0 10*3/uL Normal 0-5 [facility] Comment on above: Performed By: #### L 500.2500, L100.0100, L501.4405, L501.9520 ####[facility] [address] [place], [address] Platelet mean volume (Bld) [Entitic vol] 10.4 fL Normal 6.2-12.0 [facility] Comment on above: Performed By: #### L 500.2500, L100.0100, L501.4405, L501.9520 ####[facility] [address] [place], [address] Platelets (Bld) [#/Vol] 134 10*3/uL Low 150-450 [facility] Comment on above: Performed By: #### L 500.2500, L100.0100, L501.4405, L501.9520 ####[facility] [address] [place], [address] RBC (Bld) [#/Vol] 2.53 10*6/uL Low 4.6-6.2 [facility] Comment on above: Performed By: #### L 500.2500, L100.0100, L501.4405, L501.9520 ####[facility] [address] [place], [address] RDW SD 57.1 fl High 35.1-43.9 [facility] Comment on above: Performed By: #### L 500.2500, L100.0100, L501.4405, L501.9520 ####[facility] [address] [place], [address] WBC (Bld) [#/Vol] 4.0 10*3/uL Low 4.4-11.0 [facility] Comment on above: Performed By: #### L 500.2500, L100.0100, L501.4405, L501.9520 ####[facility] [address] [place], [address] EGD Reporton 03-01-2024 EGD Report Normal [facility] International normalized rat io (INR) calculationOrdered By: Eyal Meraz on 03-01-2024 INR Coag (Bld) [Relative time] 1.2 {INR} [facility] Laboratory - Chemistry and C hemistry - challengeOrdered By: Eyal Meraz on 03-01-2024 AST [Catalytic activity/Vol] 15 U/L 15-37 [facility] MR/POSTOP.ANEon 03-01-2024 MR/POSTOP.ANE Normal [facility] MR/ZGOASGBS3wj 03-01-2024 MR/POSTOPAN2 Normal [facility] Partial Thromboplast Timeon 03-01-2024 aPTT Coag (Bld) [Time] 29.4 s Normal 24.1-36.2 [facility] Comment on above: Performed By: #### L 501.4100, L300.3900, L300.4310 ####[facility] [address] [place], [address] Prothrombin Time w/INRon INR Coag (PPP) [Relative time] 1.2 {INR} Normal [facility] Comment on above: Performed By: #### L 501.4100, L300.3900, L300.4310 ####[facility] [address] [place], [address] PT Coag (PPP) [Time] 15.4 s High 11.7-14.9 [facility] Comment on above: Performed By: #### L 501.4100, L300.3900, L300.4310 ####[facility] [address] [place], [address] Prothrombin timeOrdered By: Eyal Meraz on 03-01-2024 PT Coag (PPP) [Time] 15.4 s High 11.7-14.9 [facility] Serum or plasma alanine duque otransferase (ALT) measurementOrdered By: Eyal Meraz on 03-01-2024 ALT [Catalytic activity/Vol] 21 U/L 16-61 [facility] TSH QnOrdered By: Eyal persaud on 03-01-2024 Thyroid Stimulating Hormone (TSH) 1.620 uIU/mL 0.358-3.740 [facility] Thyroid Stim Hormone (TSH)on 03-01-2024 TSH 1.620 uIU/mL Normal 0.358-3.740 [facility] Comment on above: Performed By: #### L 500.2500, L100.0100, L501.4405, L501.9520 ####[facility] [address] [place], [address] aPTT Coag (PPP) [Time]Ordere d By: Eyal Meraz on 03-01-2024 aPTT Coag (Bld) [Time] 29.4 s 24.1-36.2 [facility] Basic Metabolic Profile (BMP )on 02-29-2024 BUN/CRE 22.6 RATIO High 12-29 [facility] Comment on above: Performed By: #### L 100.0100, L500.2500 ####[facility] [address] [place], [address] CA,Total 9.1 mg/dL Normal 8.5-10.1 [facility] Comment on above: Performed By: #### L 100.0100, L500.2500 ####[facility] [address] [place], [address] Chloride [Moles/Vol] 104 mmol/L Normal 98-107 [facility] Comment on above: Performed By: #### L 100.0100, L500.2500 ####[facility] [address] [place], [address] CO2 [Moles/Vol] 28.0 mmol/L Normal 21.0-32.0 [facility] Comment on above: Performed By: #### L 100.0100, L500.2500 ####[facility] [address] [place], [address] Creatinine [Mass/Vol] 2.61 mg/dL High 0.70-1.30 [facility] Comment on above: Result Comment: The validity of the calculated GFR GFRAA in patients over70 years has not been determined. Clinical correlation isessential. Performed By: #### L 100.0100, L500.2500 ####[facility] [address] [place], [address] ECRCL 20.94 ml/min Normal [facility] Comment on above: Performed By: #### L 100.0100, L500.2500 ####[facility] [address] [place], [address] EST GFR - AA 30 mL/min Low >60 [facility] Comment on above: Result Comment: Afri can Slovenian GFR Calc Performed By: #### L 100.0100, L500.2500 ####[facility] [address] [place], [address] GAP 7 Normal 5-15 [facility] Comment on above: Performed By: #### L 100.0100, L500.2500 ####[facility] [address] [place], [address] GFR/1.73 sq M.predicted among non-blacks MDRD (S/P/Bld) [Vol rate/Area] 25 mL/min/{1.73_m2} Low >60 [facility] Comment on above: Result Comment: Non- GFR Calc Performed By: #### L 100.0100, L500.2500 ####[facility] [address] [place], [address] Glucose [Mass/Vol] 155 mg/dL High 74-106 [facility] Comment on above: Result Comment: Fast ing Glucose result greater than or equal to 126 mg/dLsuggests DIABETES MELLITUS per A.D.A. criteria. Performed By: #### L 100.0100, L500.2500 ####[facility] [address] [place], [address] Potassium [Moles/Vol] 4.3 mmol/L Normal 3.5-5.1 [facility] Comment on above: Performed By: #### L 100.0100, L500.2500 ####[facility] [address] [place], [address] Sodium [Moles/Vol] 139 mmol/L Normal 136-145 [facility] Comment on above: Performed By: #### L 100.0100, L500.2500 ####[facility] [address] [place], [address] Urea nitrogen [Mass/Vol] 59 mg/dL High 7-18 [facility] Comment on above: Performed By: #### L 100.0100, L500.2500 ####[facility] [address] [place], [address] Bedside Glucoseon 02-29-2024 FINGERSTICK GLU 167 mg/dL High 74-106 [facility] Comment on above: Result Comment: MYKE GEMENT OF PATIENT CARE PER NURSING PROTOCOL Performed By: #### L 501.080 ####[facility] [address] [place], [address] FINGERSTICK GLU 180 mg/dL High 74-106 [facility] Comment on above: Result Comment: MYKE GEMENT OF PATIENT CARE PER NURSING PROTOCOL Performed By: #### L 501.080 ####[facility] [address] [place], [address] FINGERSTICK GLU 240 mg/dL High 74-106 [facility] Comment on above: Result Comment: MYKE GEMENT OF PATIENT CARE PER NURSING PROTOCOL Performed By: #### L 501.080 ####[facility] [address] [place], [address] FINGERSTICK GLU 144 mg/dL High 74-106 [facility] Comment on above: Result Comment: MYKE GEMENT OF PATIENT CARE PER NURSING PROTOCOL Performed By: #### L 501.080 ####[facility] [address] [place], [address] CBC W/Diff, Automatedon 12-2 0-2023 Absolute Lymph 1.04 X10 3/uL Normal 0.83-4.51 [facility] Comment on above: Performed By: #### L 100.0100, L500.2500 ####[facility] [address] [place], [address] Absolute Neut 2.5 X10 3/uL Normal 2.0-7.7 [facility] Comment on above: Performed By: #### L 100.0100, L500.2500 ####[facility] [address] [place], [address] Basophils/100 WBC (Bld) 0.9 % Normal 0-1 [facility] Comment on above: Performed By: #### L 100.0100, L500.2500 ####[facility] [address] [place], [address] Eosinophils/100 WBC (Bld) 5.7 % High 0-5 [facility] Comment on above: Performed By: #### L 100.0100, L500.2500 ####[facility] [address] [place], [address] Erythrocyte distribution width (RBC) [Ratio] 17.0 % High 11.6-14.6 [facility] Comment on above: Performed By: #### L 100.0100, L500.2500 ####[facility] [address] [place], [address] Hematocrit (Bld) [Volume fraction] 23.5 % Low 40-54 [facility] Comment on above: Performed By: #### L 100.0100, L500.2500 ####[facility] [address] [place], [address] Hemoglobin (Bld) [Mass/Vol] 7.6 g/dL Low 13.0-16.5 [facility] Comment on above: Performed By: #### L 100.0100, L500.2500 ####[facility] [address] [place], [address] IG% 0.700 Normal 0.0-0.9 [facility] Comment on above: Result Comment: IG% - Immature Granulocytes (promyelocytes, myelocytes andmetamyelocytes) > 1% indicates that a LEFT SHIFT is Present. Performed By: #### L 100.0100, L500.2500 ####[facility] [address] [place], [address] Lymphocytes/100 WBC (Bld) 23.8 % Normal 19-41 [facility] Comment on above: Performed By: #### L 100.0100, L500.2500 ####[facility] [address] [place], [address] MCH (RBC) [Entitic mass] 31.8 pg Normal 27.0-32.0 [facility] Comment on above: Performed By: #### L 100.0100, L500.2500 ####[facility] [address] [place], [address] MCHC (RBC) [Mass/Vol] 32.3 g/dL Normal 32-36 [facility] Comment on above: Performed By: #### L 100.0100, L500.2500 ####[facility] [address] [place], [address] MCV (RBC) [Entitic vol] 98.3 fL High 80-94 [facility] Comment on above: Performed By: #### L 100.0100, L500.2500 ####[facility] [address] [place], [address] Monocytes/100 WBC (Bld) 10.8 % High 0-10 [facility] Comment on above: Performed By: #### L 100.0100, L500.2500 ####[facility] [address] [place], [address] Neutrophils/100 WBC (Bld) 58.1 % Normal 47-70 [facility] Comment on above: Performed By: #### L 100.0100, L500.2500 ####[facility] [address] [place], [address] Nucleated RBC (Bld) [#/Vol] 0 10*3/uL Normal 0-5 [facility] Comment on above: Performed By: #### L 100.0100, L500.2500 ####[facility] [address] [place], [address] Platelet mean volume (Bld) [Entitic vol] 10.5 fL Normal 6.2-12.0 [facility] Comment on above: Performed By: #### L 100.0100, L500.2500 ####[facility] [address] [place], [address] Platelets (Bld) [#/Vol] 135 10*3/uL Low 150-450 [facility] Comment on above: Performed By: #### L 100.0100, L500.2500 ####[facility] [address] [place], [address] RBC (Bld) [#/Vol] 2.39 10*6/uL Low 4.6-6.2 [facility] Comment on above: Performed By: #### L 100.0100, L500.2500 ####[facility] [address] [place], [address] RDW SD 59.0 fl High 35.1-43.9 [facility] Comment on above: Performed By: #### L 100.0100, L500.2500 ####[facility] [address] [place], [address] WBC (Bld) [#/Vol] 4.4 10*3/uL Normal 4.4-11.0 [facility] Comment on above: Performed By: #### L 100.0100, L500.2500 ####[facility] [address] [place], [address] MR/CON.PCM.GIon 02-29-2024 MR/CON.PCM.GI Normal [facility] 12 Lead EKGon 02-28-2024 12 Lead EKG Normal [facility] BNP (brain natriuretic pepti de measurement)Ordered By: Yuridia Combs on 02-28-2024 Natriuretic peptide B (Bld) [Mass/Vol] 87.6 pg/mL 0-100 [facility] BNP,B-Type NATRIURETIC PEPTI Nico 02-28-2024 Natriuretic peptide B (Bld) [Mass/Vol] 87.6 pg/mL Normal 0-100 [facility] Comment on above: Performed By: #### L 503.6620 ####[facility] [address] [place], [address] BRCon 02-28-2024 RC Normal [facility] Comment on above: Result Comment: [id number] AN RC TRANSFUSED 02/28/24 1721 Performed By: #### B RC ####[facility] [address] [place], [address] Basic Metabolic Profile (BMP )on 02-28-2024 BUN/CRE 20.6 RATIO High - [facility] Comment on above: Order Comment: 'TROP ' Serial specimen #1, #2 or #3: 1 Performed By: #### L 100.0100, L500.2500, L501.4020 ####[facility] [address] [place], [address] CA,Total 9.0 mg/dL Normal 8.5-10.1 [facility] Comment on above: Order Comment: 'TROP ' Serial specimen #1, #2 or #3: 1 Performed By: #### L 100.0100, L500.2500, L501.4020 ####[facility] [address] [place], [address] Chloride [Moles/Vol] 104 mmol/L Normal 98-107 [facility] Comment on above: Order Comment: 'TROP ' Serial specimen #1, #2 or #3: 1 Performed By: #### L 100.0100, L500.2500, L501.4020 ####[facility] [address] [place], [address] CO2 [Moles/Vol] 28.0 mmol/L Normal 21.0-32.0 [facility] Comment on above: Order Comment: 'TROP ' Serial specimen #1, #2 or #3: 1 Performed By: #### L 100.0100, L500.2500, L501.4020 ####[facility] [address] [place], [address] Creatinine [Mass/Vol] 2.96 mg/dL High 0.70-1.30 [facility] Comment on above: Order Comment: 'TROP ' Serial specimen #1, #2 or #3: 1 Result Comment: The validity of the calculated GFR GFRAA in patients over70 years has not been determined. Clinical correlation isessential. Performed By: #### L 100.0100, L500.2500, L501.4020 ####[facility] [address] [place], [address] ECRCL 18.85 ml/min Normal [facility] Comment on above: Order Comment: 'TROP ' Serial specimen #1, #2 or #3: 1 Performed By: #### L 100.0100, L500.2500, L501.4020 ####[facility] [address] [place], [address] EST GFR - AA 26 mL/min Low >60 [facility] Comment on above: Order Comment: 'TROP ' Serial specimen #1, #2 or #3: 1 Result Comment: Afri can Slovenian GFR Calc Performed By: #### L 100.0100, L500.2500, L501.4020 ####[facility] [address] [place], [address] GAP 7 Normal 5-15 [facility] Comment on above: Order Comment: 'TROP ' Serial specimen #1, #2 or #3: 1 Performed By: #### L 100.0100, L500.2500, L501.4020 ####[facility] [address] [place], [address] GFR/1.73 sq M.predicted among non-blacks MDRD (S/P/Bld) [Vol rate/Area] 22 mL/min/{1.73_m2} Low >60 [facility] Comment on above: Order Comment: 'TROP ' Serial specimen #1, #2 or #3: 1 Result Comment: Non- GFR Calc Performed By: #### L 100.0100, L500.2500, L501.4020 ####[facility] [address] [place], [address] Glucose [Mass/Vol] 317 mg/dL High 74-106 [facility] Comment on above: Order Comment: 'TROP ' Serial specimen #1, #2 or #3: 1 Result Comment: Gluc ose result greater than or equal to 200 mg/dLsuggests DIABETES MELLITUS per A.D.A. criteria. Performed By: #### L 100.0100, L500.2500, L501.4020 ####[facility] [address] [place], [address] Potassium [Moles/Vol] 4.2 mmol/L Normal 3.5-5.1 [facility] Comment on above: Order Comment: 'TROP ' Serial specimen #1, #2 or #3: 1 Performed By: #### L 100.0100, L500.2500, L501.4020 ####[facility] [address] [place], [address] Sodium [Moles/Vol] 139 mmol/L Normal 136-145 [facility] Comment on above: Order Comment: 'TROP ' Serial specimen #1, #2 or #3: 1 Performed By: #### L 100.0100, L500.2500, L501.4020 ####[facility] [address] [place], [address] Urea nitrogen [Mass/Vol] 61 mg/dL High 7-18 [facility] Comment on above: Order Comment: 'TROP ' Serial specimen #1, #2 or #3: 1 Performed By: #### L 100.0100, L500.2500, L501.4020 ####[facility] [address] [place], [address] Bedside Glucoseon 02-27-2023 FINGERSTICK GLU 245 mg/dL High 74-106 [facility] Comment on above: Result Comment: MYKE SAGE OF PATIENT CARE PER NURSING PROTOCOL Performed By: #### L 501.080 ####[facility] [address] [place], [address] CBC W/Diff, Automatedon 02-09 Absolute Lymph 0.78 X10 3/uL Low 0.83-4.51 [facility] Comment on above: Performed By: #### L 100.0100, L500.2500, L501.4020 ####[facility] [address] [place], [address] Absolute Neut 2.2 X10 3/uL Normal 2.0-7.7 [facility] Comment on above: Performed By: #### L 100.0100, L500.2500, L501.4020 ####[facility] [address] [place], [address] Basophils/100 WBC (Bld) 0.6 % Normal 0-1 [facility] Comment on above: Performed By: #### L 100.0100, L500.2500, L501.4020 ####[facility] [address] [place], [address] Eosinophils/100 WBC (Bld) 4.7 % Normal 0-5 [facility] Comment on above: Performed By: #### L 100.0100, L500.2500, L501.4020 ####[facility] [address] [place], [address] Erythrocyte distribution width (RBC) [Ratio] 15.9 % High 11.6-14.6 [facility] Comment on above: Performed By: #### L 100.0100, L500.2500, L501.4020 ####[facility] [address] [place], [address] Hematocrit (Bld) [Volume fraction] 22.2 % Low 40-54 [facility] Comment on above: Performed By: #### L 100.0100, L500.2500, L501.4020 ####[facility] [address] [place], [address] Hemoglobin (Bld) [Mass/Vol] 6.9 g/dL Low 13.0-16.5 [facility] Comment on above: Performed By: #### L 100.0100, L500.2500, L501.4020 ####[facility] [address] [place], [address] IG% 1.100 High 0.0-0.9 [facility] Comment on above: Result Comment: IG% - Immature Granulocytes (promyelocytes, myelocytes andmetamyelocytes) > 1% indicates that a LEFT SHIFT is Present. Performed By: #### L 100.0100, L500.2500, L501.4020 ####[facility] [address] [place], [address] Lymphocytes/100 WBC (Bld) 21.8 % Normal 19-41 [facility] Comment on above: Performed By: #### L 100.0100, L500.2500, L501.4020 ####[facility] [address] [place], [address] MCH (RBC) [Entitic mass] 31.9 pg Normal 27.0-32.0 [facility] Comment on above: Performed By: #### L 100.0100, L500.2500, L501.4020 ####[facility] [address] [place], [address] MCHC (RBC) [Mass/Vol] 31.1 g/dL Low 32-36 [facility] Comment on above: Performed By: #### L 100.0100, L500.2500, L501.4020 ####[facility] [address] [place], [address] MCV (RBC) [Entitic vol] 102.8 fL High 80-94 [facility] Comment on above: Performed By: #### L 100.0100, L500.2500, L501.4020 ####[facility] [address] [place], [address] Monocytes/100 WBC (Bld) 10.1 % High 0-10 [facility] Comment on above: Performed By: #### L 100.0100, L500.2500, L501.4020 ####[facility] [address] [place], [address] Neutrophils/100 WBC (Bld) 61.7 % Normal 47-70 [facility] Comment on above: Performed By: #### L 100.0100, L500.2500, L501.4020 ####[facility] [address] [place], [address] Nucleated RBC (Bld) [#/Vol] 0 10*3/uL Normal 0-5 [facility] Comment on above: Performed By: #### L 100.0100, L500.2500, L501.4020 ####[facility] [address] [place], [address] Platelet mean volume (Bld) [Entitic vol] 10.1 fL Normal 6.2-12.0 [facility] Comment on above: Performed By: #### L 100.0100, L500.2500, L501.4020 ####[facility] [address] [place], [address] Platelets (Bld) [#/Vol] 135 10*3/uL Low 150-450 [facility] Comment on above: Performed By: #### L 100.0100, L500.2500, L501.4020 ####[facility] [address] [place], [address] RBC (Bld) [#/Vol] 2.16 10*6/uL Low 4.6-6.2 [facility] Comment on above: Performed By: #### L 100.0100, L500.2500, L501.4020 ####[facility] [address] [place], [address] RDW SD 58.4 fl High 35.1-43.9 [facility] Comment on above: Performed By: #### L 100.0100, L500.2500, L501.4020 ####[facility] [address] [place], [address] WBC (Bld) [#/Vol] 3.6 10*3/uL Low 4.4-11.0 [facility] Comment on above: Performed By: #### L 100.0100, L500.2500, L501.4020 ####[facility] [address] [place], [address] Chest 1 View (Portable)on Chest 1 View (Portable) Normal [facility] Emergency Department Summary on 02-28-2024 Emergency Department Summary Normal [facility] Emergency Department Summary Normal [facility] H AND P Exam - Hospitaliston 02-28-2024 H&P Exam - Hospitalist Normal [facility] Influenza virus A and B and SARS-CoV-2 (COVID-19) and Respiratory syncytial virus RNAOrdered By: Yuridia Combs on 02-28-2024 SARS-CoV-2 (COVID-19) RNA JOSH+probe Ql (Unsp spec) [facility] L501.4020on 02-28-2024 TROPONIN-I HS 31 pg/mL Normal 3.0-78.0 [facility] Comment on above: Order Comment: 'TROP ' Serial specimen #1, #2 or #3: 1 Result Comment: Plea se Note: New Test Units and Gender Specific Reference Ranges. For more information see Policy Stat Procedure [place] High Sensitivity Troponin (TNIH) and attachments. Performed By: #### L 100.0100, L500.2500, L501.4020 ####[facility] [address] [place], [address] Lower GI hemoglobin IA Ql (S tl)Ordered By: Yuridia Combs on 02-28-2024 Stool Occult Blood (CLARY) [facility] M100.678on 02-28-2024 M100.678 Pending SARS-CoV-2 (COVID 19) Negative INFLUENZA A Negative INFLUENZA B Negative RSV PCR Negative Normal [facility] Comment on above: Performed By: #### M 100.678 ####[facility] [address] [place], [place], [id number] Stool Occult Blood iFOBon STOB Negative Normal [facility] Comment on above: Performed By: #### M 100.7900 ####[facility] [address] [place], [address] Troponin IOrdered By: Yuridia pereira on 02-28-2024 Troponin I High Sensitivity 31 pg/mL 3.0-78.0 [facility] Comment on above: Please Note: New Arti t Units and Gender Specific Reference Ranges. For more information see Policy Stat Procedure [place] High Sensitivity Troponin (TNIH) and attachments. Type AND Screenon 02-28-2024 Ab SCREEN GEL Negative Normal [facility] Comment on above: Order Comment: A Performed By: #### B TS ####[facility] [address] [place], [address] Basic Metabolic Profile (BMP )on 02-21-2024 BUN/CRE 25.2 RATIO High 10-20 [facility] Comment on above: Performed By: #### L 100.0100, L500.2500 ####[facility] [address] [place], [address] CA,Total 9.9 mg/dL Normal 8.5-10.1 [facility] Comment on above: Performed By: #### L 100.0100, L500.2500 ####[facility] [address] [place], [address] Chloride [Moles/Vol] 105 mmol/L Normal 98-107 [facility] Comment on above: Performed By: #### L 100.0100, L500.2500 ####[facility] [address] [place], [address] CO2 [Moles/Vol] 30.0 mmol/L Normal 21.0-32.0 [facility] Comment on above: Performed By: #### L 100.0100, L500.2500 ####[facility] [address] [place], [address] Creatinine [Mass/Vol] 2.50 mg/dL High 0.70-1.30 [facility] Comment on above: Result Comment: The validity of the calculated GFR GFRAA in patients over70 years has not been determined. Clinical correlation isessential. Performed By: #### L 100.0100, L500.2500 ####[facility] [address] [place], [address] EST GFR - AA 32 mL/min Low >60 [facility] Comment on above: Result Comment: Afri can Slovenian GFR Calc Performed By: #### L 100.0100, L500.2500 ####[facility] [address] [place], [address] GAP 6 Normal 5-15 [facility] Comment on above: Performed By: #### L 100.0100, L500.2500 ####[facility] [address] [place], [address] GFR/1.73 sq M.predicted among non-blacks MDRD (S/P/Bld) [Vol rate/Area] 26 mL/min/{1.73_m2} Low >60 [facility] Comment on above: Result Comment: Non- GFR Calc Performed By: #### L 100.0100, L500.2500 ####[facility] [address] [place], [address] Glucose [Mass/Vol] 181 mg/dL High 74-106 [facility] Comment on above: Result Comment: Fast ing Glucose result greater than or equal to 126 mg/dLsuggests DIABETES MELLITUS per A.D.A. criteria. Performed By: #### L 100.0100, L500.2500 ####[facility] [address] [place], [address] Potassium [Moles/Vol] 5.1 mmol/L Normal 3.5-5.1 [facility] Comment on above: Performed By: #### L 100.0100, L500.2500 ####[facility] [address] [place], [address] Sodium [Moles/Vol] 141 mmol/L Normal 136-145 [facility] Comment on above: Performed By: #### L 100.0100, L500.2500 ####[facility] [address] [place], [address] Urea nitrogen [Mass/Vol] 63 mg/dL High 7-18 [facility] Comment on above: Performed By: #### L 100.0100, L500.2500 ####[facility] [address] [place], [address] CBC W/Diff, Automatedon 12- Absolute Lymph 1.21 X10 3/uL Normal 0.83-4.51 [facility] Comment on above: Performed By: #### L 100.0100, L500.2500 ####[facility] [address] [place], [address] Absolute Neut 4.8 X10 3/uL Normal 2.0-7.7 [facility] Comment on above: Performed By: #### L 100.0100, L500.2500 ####[facility] [address] [place], [address] Basophils/100 WBC (Bld) 0.4 % Normal 0-1 [facility] Comment on above: Performed By: #### L 100.0100, L500.2500 ####[facility] [address] [place], [address] Eosinophils/100 WBC (Bld) 3.3 % Normal 0-5 [facility] Comment on above: Performed By: #### L 100.0100, L500.2500 ####[facility] [address] [place], [address] Erythrocyte distribution width (RBC) [Ratio] 13.9 % Normal 11.6-14.6 [facility] Comment on above: Performed By: #### L 100.0100, L500.2500 ####[facility] [address] [place], [address] Hematocrit (Bld) [Volume fraction] 23.2 % Low 40-54 [facility] Comment on above: Performed By: #### L 100.0100, L500.2500 ####[facility] [address] [place], [address] Hemoglobin (Bld) [Mass/Vol] 7.1 g/dL Low 13.0-16.5 [facility] Comment on above: Performed By: #### L 100.0100, L500.2500 ####[facility] [address] [place], [address] IG% 0.300 Normal 0.0-0.9 [facility] Comment on above: Result Comment: IG% - Immature Granulocytes (promyelocytes, myelocytes andmetamyelocytes) > 1% indicates that a LEFT SHIFT is Present. Performed By: #### L 100.0100, L500.2500 ####[facility] [address] [place], [address] Lymphocytes/100 WBC (Bld) 18.1 % Low 19-41 [facility] Comment on above: Performed By: #### L 100.0100, L500.2500 ####[facility] [address] [place], [address] MCH (RBC) [Entitic mass] 30.9 pg Normal 27.0-32.0 [facility] Comment on above: Performed By: #### L 100.0100, L500.2500 ####[facility] [address] [place], [address] MCHC (RBC) [Mass/Vol] 30.6 g/dL Low 32-36 [facility] Comment on above: Performed By: #### L 100.0100, L500.2500 ####[facility] [address] [place], [address] MCV (RBC) [Entitic vol] 100.9 fL High 80-94 [facility] Comment on above: Performed By: #### L 100.0100, L500.2500 ####[facility] [address] [place], [address] Monocytes/100 WBC (Bld) 6.1 % Normal 0-10 [facility] Comment on above: Performed By: #### L 100.0100, L500.2500 ####[facility] [address] [place], [address] Neutrophils/100 WBC (Bld) 71.8 % High 47-70 [facility] Comment on above: Performed By: #### L 100.0100, L500.2500 ####[facility] [address] [place], [address] Nucleated RBC (Bld) [#/Vol] 0 10*3/uL Normal 0-5 [facility] Comment on above: Performed By: #### L 100.0100, L500.2500 ####[facility] [address] [place], [address] Platelet mean volume (Bld) [Entitic vol] 11.2 fL Normal 6.2-12.0 [facility] Comment on above: Performed By: #### L 100.0100, L500.2500 ####[facility] [address] [place], [address] Platelets (Bld) [#/Vol] 124 10*3/uL Low 150-450 [facility] Comment on above: Performed By: #### L 100.0100, L500.2500 ####[facility] [address] [place], [address] RBC (Bld) [#/Vol] 2.30 10*6/uL Low 4.6-6.2 [facility] Comment on above: Performed By: #### L 100.0100, L500.2500 ####[facility] [address] [place], [address] RDW SD 51.2 fl High 35.1-43.9 [facility] Comment on above: Performed By: #### L 100.0100, L500.2500 ####[facility] [address] [place], [address] WBC (Bld) [#/Vol] 6.7 10*3/uL Normal 4.4-11.0 [facility] Comment on above: Performed By: #### L 100.0100, L500.2500 ####[facility] [address] [place], [address] CBC W/Diff, Automatedon 12-0 2-2023 Absolute Lymph 0.79 X10 3/uL Low 0.83-4.51 [facility] Comment on above: Order Comment: Order Date: 02/08/24Order Info: 4-1 - CBCD Performed By: #### L 100.0100, L501.9520 ####[facility] [address] [place], [address] Absolute Neut 7.0 X10 3/uL Normal 2.0-7.7 [facility] Comment on above: Order Comment: Order Date: 02/08/24Order Info: 4-1 - CBCD Performed By: #### L 100.0100, L501.9520 ####[facility] [address] [place], [address] Basophils/100 WBC (Bld) 0.1 % Normal 0-1 [facility] Comment on above: Order Comment: Order Date: 02/08/24Order Info: 183-1 - CBCD Performed By: #### L 100.0100, L501.9520 ####[facility] [address] [place], [address] Eosinophils/100 WBC (Bld) 1.5 % Normal 0-5 [facility] Comment on above: Order Comment: Order Date: 02/08/24Order Info: 0184-1 - CBCD Performed By: #### L 100.0100, L501.9520 ####[facility] [address] [place], [address] Erythrocyte distribution width (RBC) [Ratio] 15.3 % High 11.6-14.6 [facility] Comment on above: Order Comment: Order Date: 02/08/24Order Info: 0184-1 - CBCD Performed By: #### L 100.0100, L501.9520 ####[facility] [address] [place], [address] Hematocrit (Bld) [Volume fraction] 28.4 % Low 40-54 [facility] Comment on above: Order Comment: Order Date: 02/08/24Order Info: 183- - CBCD Performed By: #### L 100.0100, L501.9520 ####[facility] [address] [place], [address] Hemoglobin (Bld) [Mass/Vol] 8.6 g/dL Low 13.0-16.5 [facility] Comment on above: Order Comment: Order Date: 02/08/24Order Info: 183- - CBCD Performed By: #### L 100.0100, L501.9520 ####[facility] [address] [place], [address] IG% 3.400 High 0.0-0.9 [facility] Comment on above: Order Comment: Order Date: 02/08/24Order Info: 183- - CBCD Result Comment: IG% - Immature Granulocytes (promyelocytes, myelocytes andmetamyelocytes) > 1% indicates that a LEFT SHIFT is Present. Performed By: #### L 100.0100, L501.9520 ####[facility] [address] [place], [address] Lymphocytes/100 WBC (Bld) 9.2 % Low 19-41 [facility] Comment on above: Order Comment: Order Date: 02/08/24Order Info: 018- - CBCD Performed By: #### L 100.0100, L501.9520 ####[facility] [address] [place], [address] MCH (RBC) [Entitic mass] 30.8 pg Normal 27.0-32.0 [facility] Comment on above: Order Comment: Order Date: 02/08/24Order Info: 4- - CBCD Performed By: #### L 100.0100, L501.9520 ####[facility] [address] [place], [address] MCHC (RBC) [Mass/Vol] 30.3 g/dL Low 32-36 [facility] Comment on above: Order Comment: Order Date: 02/08/24Order Info: 4-1 - CBCD Performed By: #### L 100.0100, L501.9520 ####[facility] [address] [place], [address] MCV (RBC) [Entitic vol] 101.8 fL High 80-94 [facility] Comment on above: Order Comment: Order Date: 02/08/24Order Info: 183- - CBCD Performed By: #### L 100.0100, L501.9520 ####[facility] [address] [place], [address] Monocytes/100 WBC (Bld) 3.6 % Normal 0-10 [facility] Comment on above: Order Comment: Order Date: 02/08/24Order Info: 183- - CBCD Performed By: #### L 100.0100, L501.9520 ####[facility] [address] [place], [address] Neutrophils/100 WBC (Bld) 82.2 % High 47-70 [facility] Comment on above: Order Comment: Order Date: 02/08/24Order Info: 4-1 - CBCD Performed By: #### L 100.0100, L501.9520 ####[facility] [address] [place], [address] Nucleated RBC (Bld) [#/Vol] 0 10*3/uL Normal 0-5 [facility] Comment on above: Order Comment: Order Date: 02/08/24Order Info: 4-1 - CBCD Performed By: #### L 100.0100, L501.9520 ####[facility] [address] [place], [address] Platelet mean volume (Bld) [Entitic vol] 11.0 fL Normal 6.2-12.0 [facility] Comment on above: Order Comment: Order Date: 02/08/24Order Info: 0184-1 - CBCD Performed By: #### L 100.0100, L501.9520 ####[facility] [address] [place], [address] Platelets (Bld) [#/Vol] 121 10*3/uL Low 150-450 [facility] Comment on above: Order Comment: Order Date: 02/08/24Order Info: 4-1 - CBCD Performed By: #### L 100.0100, L501.9520 ####[facility] [address] [place], [address] RBC (Bld) [#/Vol] 2.79 10*6/uL Low 4.6-6.2 [facility] Comment on above: Order Comment: Order Date: 02/08/24Order Info: 018- - CBCD Performed By: #### L 100.0100, L501.9520 ####[facility] [address] [place], [address] RDW SD 57.0 fl High 35.1-43.9 [facility] Comment on above: Order Comment: Order Date: 02/08/24Order Info: 0184-1 - CBCD Performed By: #### L 100.0100, L501.9520 ####[facility] [address] [place], [address] WBC (Bld) [#/Vol] 8.6 10*3/uL Normal 4.4-11.0 [facility] Comment on above: Order Comment: Order Date: 02/08/24Order Info: 0184-1 - CBCD Performed By: #### L 100.0100, L501.9520 ####[facility] [address] [place], [address] Thyroid Stim Hormone (TSH)on 02-11-2024 TSH 6.340 uIU/mL High 0.358-3.740 [facility] Comment on above: Order Comment: Order Date: 02/08/24Order Info: 3016-3 - TSHComments: hospital follow up Performed By: #### L 100.0100, L501.9520 ####[facility] [address] [place], [address] Basic Metabolic Profile (BMP )on 02-05-2024 BUN Normal 7-18 [facility] Comment on above: Result Comment: Canc elled via OM: Order cancelled - Patient discharged Performed By: #### L 100.0100, L500.2500 ####[facility] [address] [place], [address] BUN/CRE Normal 10-20 [facility] Comment on above: Result Comment: Canc elled via OM: Order cancelled - Patient discharged Performed By: #### L 100.0100, L500.2500 ####[facility] [address] [place], [address] CA,Total Normal 8.5-10.1 [facility] Comment on above: Result Comment: Canc elled via OM: Order cancelled - Patient discharged Performed By: #### L 100.0100, L500.2500 ####[facility] [address] [place], [address] CL Normal 98-107 [facility] Comment on above: Result Comment: Canc elled via OM: Order cancelled - Patient discharged Performed By: #### L 100.0100, L500.2500 ####[facility] [address] [place], [address] CO2 Normal 21.0-32.0 [facility] Comment on above: Result Comment: Canc elled via OM: Order cancelled - Patient discharged Performed By: #### L 100.0100, L500.2500 ####[facility] [address] [place], [address] CREAT,SERUM Normal 0.70-1.30 [facility] Comment on above: Result Comment: Canc elled via OM: Order cancelled - Patient discharged Performed By: #### L 100.0100, L500.2500 ####[facility] [address] [place], [address] EST GFR Normal >60 [facility] Comment on above: Result Comment: Canc elled via OM: Order cancelled - Patient discharged Performed By: #### L 100.0100, L500.2500 ####[facility] [address] [place], [address] EST GFR - AA Normal >60 [facility] Comment on above: Result Comment: Canc elled via OM: Order cancelled - Patient discharged Performed By: #### L 100.0100, L500.2500 ####[facility] [address] [place], [address] GAP Normal 5-15 [facility] Comment on above: Result Comment: Canc elled via OM: Order cancelled - Patient discharged Performed By: #### L 100.0100, L500.2500 ####[facility] [address] [place], [address] GLU Normal 74-106 [facility] Comment on above: Result Comment: Canc elled via OM: Order cancelled - Patient discharged Performed By: #### L 100.0100, L500.2500 ####[facility] [address] [place], [address] Potassium Normal 3.5-5.1 [facility] Comment on above: Result Comment: Canc elled via OM: Order cancelled - Patient discharged Performed By: #### L 100.0100, L500.2500 ####[facility] [address] [place], [address] Basic Metabolic Profile (BMP) Normal 136-145 [facility] Comment on above: Result Comment: Canc elled via OM: Order cancelled - Patient discharged Performed By: #### L 100.0100, L500.2500 ####[facility] [address] [place], [address] CBC W/Diff, Automatedon 11-2 Absolute Neut Normal 2.0-7.7 [facility] Comment on above: Result Comment: Canc elled via OM: Order cancelled - Patient discharged Performed By: #### L 100.0100, L500.2500 ####[facility] [address] [place], [address] HCT Normal 40-54 [facility] Comment on above: Result Comment: Canc elled via OM: Order cancelled - Patient discharged Performed By: #### L 100.0100, L500.2500 ####[facility] [address] [place], [address] HGB Normal 13.0-16.5 [facility] Comment on above: Result Comment: Canc elled via OM: Order cancelled - Patient discharged Performed By: #### L 100.0100, L500.2500 ####[facility] [address] [place], [address] MCH Normal 27.0-32.0 [facility] Comment on above: Result Comment: Canc elled via OM: Order cancelled - Patient discharged Performed By: #### L 100.0100, L500.2500 ####[facility] [address] [place], [address] MCHC Normal 32-36 [facility] Comment on above: Result Comment: Canc elled via OM: Order cancelled - Patient discharged Performed By: #### L 100.0100, L500.2500 ####[facility] [address] [place], [address] MCV Normal 80-94 [facility] Comment on above: Result Comment: Canc elled via OM: Order cancelled - Patient discharged Performed By: #### L 100.0100, L500.2500 ####[facility] [address] [place], [address] NEUT% Normal 47-70 [facility] Comment on above: Result Comment: Canc elled via OM: Order cancelled - Patient discharged Performed By: #### L 100.0100, L500.2500 ####[facility] [address] [place], [address] PLT Normal 150-450 [facility] Comment on above: Result Comment: Canc elled via OM: Order cancelled - Patient discharged Performed By: #### L 100.0100, L500.2500 ####[facility] [address] [place], [address] RBC Normal 4.6-6.2 [facility] Comment on above: Result Comment: Canc elled via OM: Order cancelled - Patient discharged Performed By: #### L 100.0100, L500.2500 ####[facility] [address] [place], [address] RDW CV Normal 11.6-14.6 [facility] Comment on above: Result Comment: Canc elled via OM: Order cancelled - Patient discharged Performed By: #### L 100.0100, L500.2500 ####[facility] [address] [place], [address] RDW SD Normal 35.1-43.9 [facility] Comment on above: Result Comment: Canc elled via OM: Order cancelled - Patient discharged Performed By: #### L 100.0100, L500.2500 ####[facility] [address] [place], [address] WBC Normal 4.4-11.0 [facility] Comment on above: Result Comment: Canc elled via OM: Order cancelled - Patient discharged Performed By: #### L 100.0100, L500.2500 ####[facility] [address] [place], [address] Basic Metabolic Profile (BMP )on 02-04-2024 BUN/CRE 30.5 RATIO High 10-20 [facility] Comment on above: Performed By: #### L 500.2500, L100.0100 ####[facility] [address] [place], [address] CA,Total 9.4 mg/dL Normal 8.5-10.1 [facility] Comment on above: Performed By: #### L 500.2500, L100.0100 ####[facility] [address] [place], [address] Chloride [Moles/Vol] 108 mmol/L High 98-107 [facility] Comment on above: Performed By: #### L 500.2500, L100.0100 ####[facility] [address] [place], [address] CO2 [Moles/Vol] 24.0 mmol/L Normal 21.0-32.0 [facility] Comment on above: Performed By: #### L 500.2500, L100.0100 ####[facility] [address] [place], [address] Creatinine [Mass/Vol] 2.39 mg/dL High 0.70-1.30 [facility] Comment on above: Result Comment: The validity of the calculated GFR GFRAA in patients over70 years has not been determined. Clinical correlation isessential. Performed By: #### L 500.2500, L100.0100 ####[facility] [address] [place], [address] ECRCL 22.96 ml/min Normal [facility] Comment on above: Performed By: #### L 500.2500, L100.0100 ####[facility] [address] [place], [address] EST GFR - AA 33 mL/min Low >60 [facility] Comment on above: Result Comment: Afri can Slovenian GFR Calc Performed By: #### L 500.2500, L100.0100 ####[facility] [address] [place], [address] GAP 7 Normal 5-15 [facility] Comment on above: Performed By: #### L 500.2500, L100.0100 ####[facility] [address] [place], [address] GFR/1.73 sq M.predicted among non-blacks MDRD (S/P/Bld) [Vol rate/Area] 28 mL/min/{1.73_m2} Low >60 [facility] Comment on above: Result Comment: Non- GFR Calc Performed By: #### L 500.2500, L100.0100 ####[facility] [address] [place], [address] Glucose [Mass/Vol] 220 mg/dL High 74-106 [facility] Comment on above: Result Comment: Gluc ose result greater than or equal to 200 mg/dLsuggests DIABETES MELLITUS per A.D.A. criteria. Performed By: #### L 500.2500, L100.0100 ####[facility] [address] [place], [address] Potassium [Moles/Vol] 5.2 mmol/L High 3.5-5.1 [facility] Comment on above: Performed By: #### L 500.2500, L100.0100 ####[facility] [address] [place], [address] Sodium [Moles/Vol] 139 mmol/L Normal 136-145 [facility] Comment on above: Performed By: #### L 500.2500, L100.0100 ####[facility] [address] [place], [address] Urea nitrogen [Mass/Vol] 73 mg/dL High 7-18 [facility] Comment on above: Performed By: #### L 500.2500, L100.0100 ####[facility] [address] [place], [address] Bedside Glucoseon 02-03-2023 FINGERSTICK GLU 259 mg/dL High 74-106 [facility] Comment on above: Result Comment: MYKE GEMENT OF PATIENT CARE PER NURSING PROTOCOL Performed By: #### L 501.080 ####[facility] [address] [place], [address] FINGERSTICK GLU 158 mg/dL High 74-106 [facility] Comment on above: Result Comment: MYKE GEMENT OF PATIENT CARE PER NURSING PROTOCOL Performed By: #### L 501.080 ####[facility] [address] [place], [address] FINGERSTICK GLU 196 mg/dL High 74-106 [facility] Comment on above: Result Comment: MYKE GEMENT OF PATIENT CARE PER NURSING PROTOCOL Performed By: #### L 501.080 ####[facility] [address] [place], [address] CBC W/Diff, Automatedon 11- Absolute Lymph 0.45 X10 3/uL Low 0.83-4.51 [facility] Comment on above: Performed By: #### L 500.2500, L100.0100 ####[facility] [address] [place], [address] Absolute Neut 7.9 X10 3/uL High 2.0-7.7 [facility] Comment on above: Performed By: #### L 500.2500, L100.0100 ####[facility] [address] [place], [address] Basophils/100 WBC (Bld) 0.1 % Normal 0-1 [facility] Comment on above: Performed By: #### L 500.2500, L100.0100 ####[facility] [address] [place], [address] Eosinophils/100 WBC (Bld) 0.0 % Normal 0-5 [facility] Comment on above: Performed By: #### L 500.2500, L100.0100 ####[facility] [address] [place], [address] Erythrocyte distribution width (RBC) [Ratio] 14.9 % High 11.6-14.6 [facility] Comment on above: Performed By: #### L 500.2500, L100.0100 ####[facility] [address] [place], [address] Hematocrit (Bld) [Volume fraction] 23.6 % Low 40-54 [facility] Comment on above: Performed By: #### L 500.2500, L100.0100 ####[facility] [address] [place], [address] Hemoglobin (Bld) [Mass/Vol] 7.5 g/dL Low 13.0-16.5 [facility] Comment on above: Performed By: #### L 500.2500, L100.0100 ####[facility] [address] [place], [address] IG% 0.600 Normal 0.0-0.9 [facility] Comment on above: Result Comment: IG% - Immature Granulocytes (promyelocytes, myelocytes andmetamyelocytes) > 1% indicates that a LEFT SHIFT is Present. Performed By: #### L 500.2500, L100.0100 ####[facility] [address] [place], [address] Lymphocytes/100 WBC (Bld) 5.3 % Low 19-41 [facility] Comment on above: Performed By: #### L 500.2500, L100.0100 ####[facility] [address] [place], [address] MCH (RBC) [Entitic mass] 31.3 pg Normal 27.0-32.0 [facility] Comment on above: Performed By: #### L 500.2500, L100.0100 ####[facility] [address] [place], [address] MCHC (RBC) [Mass/Vol] 31.8 g/dL Low 32-36 [facility] Comment on above: Performed By: #### L 500.2500, L100.0100 ####[facility] [address] [place], [address] MCV (RBC) [Entitic vol] 98.3 fL High 80-94 [facility] Comment on above: Performed By: #### L 500.2500, L100.0100 ####[facility] [address] [place], [address] Monocytes/100 WBC (Bld) 1.9 % Normal 0-10 [facility] Comment on above: Performed By: #### L 500.2500, L100.0100 ####[facility] [address] [place], [address] Neutrophils/100 WBC (Bld) 92.1 % High 47-70 [facility] Comment on above: Performed By: #### L 500.2500, L100.0100 ####[facility] [address] [place], [address] Nucleated RBC (Bld) [#/Vol] 0 10*3/uL Normal 0-5 [facility] Comment on above: Performed By: #### L 500.2500, L100.0100 ####[facility] [address] [place], [address] Platelet mean volume (Bld) [Entitic vol] 11.0 fL Normal 6.2-12.0 [facility] Comment on above: Performed By: #### L 500.2500, L100.0100 ####[facility] [address] [place], [address] Platelets (Bld) [#/Vol] 129 10*3/uL Low 150-450 [facility] Comment on above: Performed By: #### L 500.2500, L100.0100 ####[facility] [address] [place], [address] RBC (Bld) [#/Vol] 2.40 10*6/uL Low 4.6-6.2 [facility] Comment on above: Performed By: #### L 500.2500, L100.0100 ####[facility] [address] [place], [address] RDW SD 53.0 fl High 35.1-43.9 [facility] Comment on above: Performed By: #### L 500.2500, L100.0100 ####[facility] [address] [place], [address] WBC (Bld) [#/Vol] 8.5 10*3/uL Normal 4.4-11.0 [facility] Comment on above: Performed By: #### L 500.2500, L100.0100 ####[facility] [address] [place], [address] Discharge Instructionon 01-11 Discharge Instruction Normal [facility] Vitamin B12on 02-04-2024 Cobalamin (Vitamin B12) [Mass/Vol] 661 pg/mL Normal 211-911 [facility] Comment on above: Performed By: #### L 503.0105 ####[facility] [address] [place], [address] Bedside Glucoseon 02-03-2024 FINGERSTICK GLU 192 mg/dL High [address] [place] [address] Comment on above: Result Comment: MYKE GEMENT OF PATIENT CARE PER NURSING PROTOCOL Performed By: #### L 501.080 ####[facility] [address] [place], [address] FINGERSTICK GLU 201 mg/dL High [address] [place] [address] Comment on above: Result Comment: MYKE GEMENT OF PATIENT CARE PER NURSING PROTOCOL Performed By: #### L 501.080 ####[facility] [address] [place], [address] FINGERSTICK GLU 270 mg/dL High [address] [place] [address] Comment on above: Result Comment: MYKE GEMENT OF PATIENT CARE PER NURSING PROTOCOL Performed By: #### L 501.080 ####[facility] [address] [place], [address] FINGERSTICK GLU 215 mg/dL High [address] [place] [address] Comment on above: Result Comment: MYKE GEMENT OF PATIENT CARE PER NURSING PROTOCOL Performed By: #### L 501.080 ####[facility] [address] [place], [address] CBC W/Diff, Automatedon 01-11 Absolute Lymph 0.35 X10 3/uL Low 0.83-4.51 [facility] Comment on above: Performed By: #### L 501.9985, L501.2300, L501.5200, L100.0100, L500.4050 ####[facility] [address] [place], [address] Absolute Neut 4.4 X10 3/uL Normal 2.0-7.7 [facility] Comment on above: Performed By: #### L 501.9985, L501.2300, L501.5200, L100.0100, L500.4050 ####[facility] [address] [place], [address] Basophils/100 WBC (Bld) 0.2 % Normal 0-1 [facility] Comment on above: Performed By: #### L 501.9985, L501.2300, L501.5200, L100.0100, L500.4050 ####[facility] [address] [place], [address] Eosinophils/100 WBC (Bld) 0.4 % Normal 0-5 [facility] Comment on above: Performed By: #### L 501.9985, L501.2300, L501.5200, L100.0100, L500.4050 ####[facility] [address] [place], [address] Erythrocyte distribution width (RBC) [Ratio] 14.8 % High 11.6-14.6 [facility] Comment on above: Performed By: #### L 501.9985, L501.2300, L501.5200, L100.0100, L500.4050 ####[facility] [address] [place], [address] Hematocrit (Bld) [Volume fraction] 24.5 % Low 40-54 [facility] Comment on above: Performed By: #### L 501.9985, L501.2300, L501.5200, L100.0100, L500.4050 ####[facility] [address] [place], [address] Hemoglobin (Bld) [Mass/Vol] 7.7 g/dL Low 13.0-16.5 [facility] Comment on above: Performed By: #### L 501.9985, L501.2300, L501.5200, L100.0100, L500.4050 ####[facility] [address] [place], [address] IG% 0.600 Normal 0.0-0.9 [facility] Comment on above: Result Comment: IG% - Immature Granulocytes (promyelocytes, myelocytes andmetamyelocytes) > 1% indicates that a LEFT SHIFT is Present. Performed By: #### L 501.9985, L501.2300, L501.5200, L100.0100, L500.4050 ####[facility] [address] [place], [address] Lymphocytes/100 WBC (Bld) 7.2 % Low 19-41 [facility] Comment on above: Performed By: #### L 501.9985, L501.2300, L501.5200, L100.0100, L500.4050 ####[facility] [address] [place], [address] MCH (RBC) [Entitic mass] 31.8 pg Normal 27.0-32.0 [facility] Comment on above: Performed By: #### L 501.9985, L501.2300, L501.5200, L100.0100, L500.4050 ####[facility] [address] [place], [address] MCHC (RBC) [Mass/Vol] 31.4 g/dL Low 32-36 [facility] Comment on above: Performed By: #### L 501.9985, L501.2300, L501.5200, L100.0100, L500.4050 ####[facility] [address] [place], [address] MCV (RBC) [Entitic vol] 101.2 fL High 80-94 [facility] Comment on above: Performed By: #### L 501.9985, L501.2300, L501.5200, L100.0100, L500.4050 ####[facility] [address] [place], [address] Monocytes/100 WBC (Bld) 0.8 % Normal 0-10 [facility] Comment on above: Performed By: #### L 501.9985, L501.2300, L501.5200, L100.0100, L500.4050 ####[facility] [address] [place], [address] Neutrophils/100 WBC (Bld) 90.8 % High 47-70 [facility] Comment on above: Performed By: #### L 501.9985, L501.2300, L501.5200, L100.0100, L500.4050 ####[facility] [address] [place], [address] Nucleated RBC (Bld) [#/Vol] 0 10*3/uL Normal 0-5 [facility] Comment on above: Performed By: #### L 501.9985, L501.2300, L501.5200, L100.0100, L500.4050 ####[facility] [address] [place], [address] Platelet mean volume (Bld) [Entitic vol] 11.3 fL Normal 6.2-12.0 [facility] Comment on above: Performed By: #### L 501.9985, L501.2300, L501.5200, L100.0100, L500.4050 ####[facility] [address] [place], [address] Platelets (Bld) [#/Vol] 105 10*3/uL Low 150-450 [facility] Comment on above: Performed By: #### L 501.9985, L501.2300, L501.5200, L100.0100, L500.4050 ####[facility] [address] [place], [address] RBC (Bld) [#/Vol] 2.42 10*6/uL Low 4.6-6.2 [facility] Comment on above: Performed By: #### L 501.9985, L501.2300, L501.5200, L100.0100, L500.4050 ####[facility] [address] [place], [address] RDW SD 53.8 fl High 35.1-43.9 [facility] Comment on above: Performed By: #### L 501.9985, L501.2300, L501.5200, L100.0100, L500.4050 ####[facility] [address] [place], [address] WBC (Bld) [#/Vol] 4.9 10*3/uL Normal 4.4-11.0 [facility] Comment on above: Performed By: #### L 501.9985, L501.2300, L501.5200, L100.0100, L500.4050 ####[facility] [address] [place], [address] Comprehensive Met[facility] 02-03-2024 Albumin [Mass/Vol] 3.1 g/dL Low 3.2-5.0 [facility] Comment on above: Performed By: #### L 501.9985, L501.2300, L501.5200, L100.0100, L500.4050 ####[facility] [address] [place], [address] Albumin/Globulin [Mass ratio] 0.9 {ratio} Normal 0.9-2.4 [facility] Comment on above: Performed By: #### L 501.9985, L501.2300, L501.5200, L100.0100, L500.4050 ####[facility] [address] [place], [address] ALK P 64 U/L Normal 45-117 [facility] Comment on above: Performed By: #### L 501.9985, L501.2300, L501.5200, L100.0100, L500.4050 ####[facility] [address] [place], [address] ALT [Catalytic activity/Vol] 20 U/L Normal 16-61 [facility] Comment on above: Performed By: #### L 501.9985, L501.2300, L501.5200, L100.0100, L500.4050 ####[facility] [address] [place], [address] AST [Catalytic activity/Vol] 10 U/L Low 15-37 [facility] Comment on above: Performed By: #### L 501.9985, L501.2300, L501.5200, L100.0100, L500.4050 ####[facility] [address] [place], [address] Bilirubin [Mass/Vol] 0.50 mg/dL Normal 0.20-1.00 [facility] Comment on above: Result Comment: For patients on eltrombopag therapy, use of Dimension [place] TBIL is not recommended. Performed By: #### L 501.9985, L501.2300, L501.5200, L100.0100, L500.4050 ####[facility] [address] [place], [address] BUN/CRE 24.9 RATIO High 10-20 [facility] Comment on above: Performed By: #### L 501.9985, L501.2300, L501.5200, L100.0100, L500.4050 ####[facility] [address] [place], [address] CA,Total 8.9 mg/dL Normal 8.5-10.1 [facility] Comment on above: Performed By: #### L 501.9985, L501.2300, L501.5200, L100.0100, L500.4050 ####[facility] [address] [place], [address] Chloride [Moles/Vol] 110 mmol/L High 98-107 [facility] Comment on above: Performed By: #### L 501.9985, L501.2300, L501.5200, L100.0100, L500.4050 ####[facility] [address] [place], [address] CO2 [Moles/Vol] 24.0 mmol/L Normal 21.0-32.0 [facility] Comment on above: Performed By: #### L 501.9985, L501.2300, L501.5200, L100.0100, L500.4050 ####[facility] [address] [place], [address] Creatinine [Mass/Vol] 2.25 mg/dL High 0.70-1.30 [facility] Comment on above: Result Comment: The validity of the calculated GFR GFRAA in patients over70 years has not been determined. Clinical correlation isessential. Performed By: #### L 501.9985, L501.2300, L501.5200, L100.0100, L500.4050 ####[facility] [address] [place], [address] ECRCL 24.38 ml/min Normal [facility] Comment on above: Performed By: #### L 501.9985, L501.2300, L501.5200, L100.0100, L500.4050 ####[facility] [address] [place], [address] EST GFR - AA 36 mL/min Low >60 [facility] Comment on above: Result Comment: Afri can [place]ian GFR Calc Performed By: #### L 501.9985, L501.2300, L501.5200, L100.0100, L500.4050 ####[facility] [address] [place], [address] GAP 7 Normal 5-15 [facility] Comment on above: Performed By: #### L 501.9985, L501.2300, L501.5200, L100.0100, L500.4050 ####[facility] [address] [place], [address] GFR/1.73 sq M.predicted among non-blacks MDRD (S/P/Bld) [Vol rate/Area] 30 mL/min/{1.73_m2} Low >60 [facility] Comment on above: Result Comment: Non- GFR Calc Performed By: #### L 501.9985, L501.2300, L501.5200, L100.0100, L500.4050 ####[facility] [address] [place], [address] Globulin (S) [Mass/Vol] 3.5 g/dL Normal 2.2-4.2 [facility] Comment on above: Performed By: #### L 501.9985, L501.2300, L501.5200, L100.0100, L500.4050 ####[facility] [address] [place], [address] Glucose [Mass/Vol] 229 mg/dL High 74-106 [facility] Comment on above: Result Comment: Gluc ose result greater than or equal to 200 mg/dLsuggests DIABETES MELLITUS per A.D.A. criteria. Performed By: #### L 501.9985, L501.2300, L501.5200, L100.0100, L500.4050 ####[facility] [address] [place], [address] Potassium [Moles/Vol] 5.4 mmol/L High 3.5-5.1 [facility] Comment on above: Performed By: #### L 501.9985, L501.2300, L501.5200, L100.0100, L500.4050 ####[facility] [address] [place], [address] Sodium [Moles/Vol] 142 mmol/L Normal 136-145 [facility] Comment on above: Performed By: #### L 501.9985, L501.2300, L501.5200, L100.0100, L500.4050 ####[facility] [address] [place], [address] T PROT 6.6 g/dL Normal 6.4-8.2 [facility] Comment on above: Performed By: #### L 501.9985, L501.2300, L501.5200, L100.0100, L500.4050 ####[facility] [address] [place], [address] Urea nitrogen [Mass/Vol] 56 mg/dL High 7-18 [facility] Comment on above: Performed By: #### L 501.9985, L501.2300, L501.5200, L100.0100, L500.4050 ####[facility] [address] [place], [address] Ferritinon 02-03-2024 Ferritin [Mass/Vol] 25 ng/mL Low 26-388 [facility] Comment on above: Order Comment: Has P atbrian had X-rays with Contrast this admission? NN Performed By: #### L 506.0250, L503.6550, L501.9520, L501.4020, L503.6030 ####[facility] [address] [place], [address] Folates, (Folic Acid)on 01-11 FOLATES 12.80 ng/mL Normal 3.1-55.4 [facility] Comment on above: Order Comment: Has P atbrian had X-rays with Contrast this admission? NN Performed By: #### L 506.0250, L503.6550, L501.9520, L501.4020, L503.6030 ####[facility] [address] [place], [address] Hemoglobin A1con 02-03-2024 HbA1c (Bld) [Mass fraction] 5.7 % High 3.8-5.6 [facility] Comment on above: Result Comment: Norm al < 5.7 % Prediabetic 5.7 - 6.4 % Diabetic >or= 6.5 % Please note range changes. Performed By: #### L 501.9985, L501.2300, L501.5200, L100.0100, L500.4050 ####[facility] [address] [place], [address] Iron+Iron Binding Capacityon 02-03-2024 Iron [Mass/Vol] 61 ug/dL Low 65-175 [facility] Comment on above: Order Comment: Has Fransisco okeefe had X-rays with Contrast this admission? NN Performed By: #### L 506.0250, L503.6550, L501.9520, L501.4020, L503.6030 ####[facility] [address] [place], [address] IRON SATURATION 21.2 Normal 15.0-55.0 [facility] Comment on above: Order Comment: Has Fransisco okeefe had X-rays with Contrast this admission? NN Performed By: #### L 506.0250, L503.6550, L501.9520, L501.4020, L503.6030 ####[facility] [address] [place], [address] TIBC 288 ug/dL Normal 250-450 [facility] Comment on above: Order Comment: Has Fransisco okeefe had X-rays with Contrast this admission? NN Performed By: #### L 506.0250, L503.6550, L501.9520, L501.4020, L503.6030 ####[facility] [address] [place], [address] L501.4020on 02-03-2024 TROPONIN-I HS 37 pg/mL Normal 3.0-78.0 [facility] Comment on above: Order Comment: Has Fransisco okeefe had X-rays with Contrast this admission? NN Result Comment: Sara saleh Note: New Test Units and Gender Specific Reference Ranges. For more information see Policy Stat Procedure [place] High Sensitivity Troponin (TNIH) and attachments. Performed By: #### L 506.0250, L503.6550, L501.9520, L501.4020, L503.6030 ####[facility] [address] [place], [address] M100.678on 02-03-2024 M100.678 Pending SARS-CoV-2 (COVID 19) Negative INFLUENZA A Negative INFLUENZA B Negative RSV PCR Negative Normal [facility] Comment on above: Performed By: #### M 100.678 ####[facility] [address] [place], [address] Magnesiumon 02-03-2024 Magnesium [Mass/Vol] 2.0 mg/dL Normal 1.6-2.6 [facility] Comment on above: Performed By: #### L 501.9985, L501.2300, L501.5200, L100.0100, L500.4050 ####[facility] [address] [place], [address] Phosphoruson 02-03-2024 Phosphate [Mass/Vol] 2.6 mg/dL Normal 2.5-4.9 [facility] Comment on above: Performed By: #### L 501.9985, L501.2300, L501.5200, L100.0100, L500.4050 ####[facility] [address] [place], [address] Thyroid Stim Hormone (TSH)on 02-03-2024 TSH 4.220 uIU/mL High 0.358-3.740 [facility] Comment on above: Order Comment: Has P atient had X-rays with Contrast this admission? NN Performed By: #### L 506.0250, L503.6550, L501.9520, L501.4020, L503.6030 ####[facility] [address] [place], [address] Type AND Screenon 02-03-2024 ABO and Rh group Nom (Bld) Blood group A Rh(D) negative Normal [facility] Comment on above: Order Comment: A Performed By: #### B TS ####[facility] [address] [place], [address] Ab SCREEN GEL PENDING Normal [facility] Comment on above: Order Comment: A Performed By: #### B TS ####[facility] [address] [place], [address] 12 Lead EKGon 02-02-2024 12 Lead EKG Normal [facility] BNP,B-Type NATRIURETIC PEPTI Nico 02-02-2024 Natriuretic peptide B (Bld) [Mass/Vol] 188.6 pg/mL High 0-100 [facility] Comment on above: Performed By: #### L 100.0100, L501.5425, L500.2500, L503.6620 ####[facility] [address] [place], [address] Basic Metabolic Profile (BMP )on 02-02-2024 BUN/CRE 26.4 RATIO High 10-20 [facility] Comment on above: Order Comment: 1Y Performed By: #### L 100.0100, L501.5425, L500.2500, L503.6620 ####[facility] [address] [place], [address] CA,Total 8.9 mg/dL Normal 8.5-10.1 [facility] Comment on above: Order Comment: 1Y Performed By: #### L 100.0100, L501.5425, L500.2500, L503.6620 ####[facility] [address] [place], [address] Chloride [Moles/Vol] 112 mmol/L High 98-107 [facility] Comment on above: Order Comment: 1Y Performed By: #### L 100.0100, L501.5425, L500.2500, [id number] ####[facility] [address] [place], [address] CO2 [Moles/Vol] 27.0 mmol/L Normal 21.0-32.0 [facility] Comment on above: Order Comment: 1Y Performed By: #### L 100.0100, L501.5425, L500.2500, [id number] ####[facility] [address] [place], [address] Creatinine [Mass/Vol] 2.35 mg/dL High 0.70-1.30 [facility] Comment on above: Order Comment: 1Y Result Comment: The validity of the calculated GFR GFRAA in patients over70 years has not been determined. Clinical correlation isessential. Performed By: #### L 100.0100, L501.5425, L500.2500, [id number] ####[facility] [address] [place], [address] ECRCL 23.21 ml/min Normal [facility] Comment on above: Order Comment: 1Y Performed By: #### L 100.0100, L501.5425, L500.2500, L503.6620 ####[facility] [address] [place], [address] EST GFR - AA 34 mL/min Low >60 [facility] Comment on above: Order Comment: 1Y Result Comment: Afri can Slovenian GFR Calc Performed By: #### L 100.0100, L501.5425, L500.2500, L503.6620 ####[facility] [address] [place], [address] GAP 6 Normal 5-15 [facility] Comment on above: Order Comment: 1Y Performed By: #### L 100.0100, L501.5425, L500.2500, L503.6620 ####[facility] [address] [place], [address] GFR/1.73 sq M.predicted among non-blacks MDRD (S/P/Bld) [Vol rate/Area] 28 mL/min/{1.73_m2} Low >60 [facility] Comment on above: Order Comment: 1Y Result Comment: Non- GFR Calc Performed By: #### L 100.0100, L501.5425, L500.2500, L503.6620 ####[facility] [address] [place], [address] Glucose [Mass/Vol] 248 mg/dL High 74-106 [facility] Comment on above: Order Comment: 1Y Result Comment: Gluc ose result greater than or equal to 200 mg/dLsuggests DIABETES MELLITUS per A.D.A. criteria. Performed By: #### L 100.0100, L501.5425, L500.2500, L503.6620 ####[facility] [address] [place], [address] Potassium [Moles/Vol] 4.7 mmol/L Normal 3.5-5.1 [facility] Comment on above: Order Comment: 1Y Performed By: #### L 100.0100, L501.5425, L500.2500, L503.6620 ####[facility] [address] [place], [address] Sodium [Moles/Vol] 145 mmol/L Normal 136-145 [facility] Comment on above: Order Comment: 1Y Performed By: #### L 100.0100, L501.5425, L500.2500, L503.6620 ####[facility] [address] [place], [address] Urea nitrogen [Mass/Vol] 62 mg/dL High 7-18 [facility] Comment on above: Order Comment: 1Y Performed By: #### L 100.0100, L501.5425, L500.2500, L503.6620 ####[facility] [address] [place], [address] CBC W/Diff, Automatedon 11-2 -2023 Absolute Lymph 0.88 X10 3/uL Normal 0.83-4.51 [facility] Comment on above: Performed By: #### L 100.0100, L501.5425, L500.2500, L503.6620 ####[facility] [address] [place], [address] Absolute Neut 4.1 X10 3/uL Normal 2.0-7.7 [facility] Comment on above: Performed By: #### L 100.0100, L501.5425, L500.2500, L503.6620 ####[facility] [address] [place], [address] Basophils/100 WBC (Bld) 0.2 % Normal 0-1 [facility] Comment on above: Performed By: #### L 100.0100, L501.5425, L500.2500, L503.6620 ####[facility] [address] [place], [address] Eosinophils/100 WBC (Bld) 4.0 % Normal 0-5 [facility] Comment on above: Performed By: #### L 100.0100, L501.5425, L500.2500, L503.6620 ####[facility] [address] [place], [address] Erythrocyte distribution width (RBC) [Ratio] 15.0 % High 11.6-14.6 [facility] Comment on above: Performed By: #### L 100.0100, L501.5425, L500.2500, L503.6620 ####[facility] [address] [place], [address] Hematocrit (Bld) [Volume fraction] 24.2 % Low 40-54 [facility] Comment on above: Performed By: #### L 100.0100, L501.5425, L500.2500, L503.6620 ####[facility] [address] [place], [address] Hemoglobin (Bld) [Mass/Vol] 7.5 g/dL Low 13.0-16.5 [facility] Comment on above: Performed By: #### L 100.0100, L501.5425, L500.2500, L503.6620 ####[facility] [address] [place], [address] IG% 0.400 Normal 0.0-0.9 [facility] Comment on above: Result Comment: IG% - Immature Granulocytes (promyelocytes, myelocytes andmetamyelocytes) > 1% indicates that a LEFT SHIFT is Present. Performed By: #### L 100.0100, L501.5425, L500.2500, L503.6620 ####[facility] [address] [place], [address] Lymphocytes/100 WBC (Bld) 15.8 % Low 19-41 [facility] Comment on above: Performed By: #### L 100.0100, L501.5425, L500.2500, L503.6620 ####[facility] [address] [place], [address] MCH (RBC) [Entitic mass] 31.3 pg Normal 27.0-32.0 [facility] Comment on above: Performed By: #### L 100.0100, L501.5425, L500.2500, L503.6620 ####[facility] [address] [place], [address] MCHC (RBC) [Mass/Vol] 31.0 g/dL Low 32-36 [facility] Comment on above: Performed By: #### L 100.0100, L501.5425, L500.2500, L503.6620 ####[facility] [address] [place], [address] MCV (RBC) [Entitic vol] 100.8 fL High 80-94 [facility] Comment on above: Performed By: #### L 100.0100, L501.5425, L500.2500, L503.6620 ####[facility] [address] [place], [address] Monocytes/100 WBC (Bld) 6.8 % Normal 0-10 [facility] Comment on above: Performed By: #### L 100.0100, L501.5425, L500.2500, L503.6620 ####[facility] [address] [place], [address] Neutrophils/100 WBC (Bld) 72.8 % High 47-70 [facility] Comment on above: Performed By: #### L 100.0100, L501.5425, L500.2500, L503.6620 ####[facility] [address] [place], [address] Nucleated RBC (Bld) [#/Vol] 0 10*3/uL Normal 0-5 [facility] Comment on above: Performed By: #### L 100.0100, L501.5425, L500.2500, L503.6620 ####[facility] [address] [place], [address] Platelet mean volume (Bld) [Entitic vol] 10.7 fL Normal 6.2-12.0 [facility] Comment on above: Performed By: #### L 100.0100, L501.5425, L500.2500, L503.6620 ####[facility] [address] [place], [address] Platelets (Bld) [#/Vol] 115 10*3/uL Low 150-450 [facility] Comment on above: Performed By: #### L 100.0100, L501.5425, L500.2500, L503.6620 ####[facility] [address] [place], [address] RBC (Bld) [#/Vol] 2.40 10*6/uL Low 4.6-6.2 [facility] Comment on above: Performed By: #### L 100.0100, L501.5425, L500.2500, L503.6620 ####[facility] [address] [place], [address] RDW SD 54.6 fl High 35.1-43.9 [facility] Comment on above: Performed By: #### L 100.0100, L501.5425, L500.2500, L503.6620 ####[facility] [address] [place], [address] WBC (Bld) [#/Vol] 5.6 10*3/uL Normal 4.4-11.0 [facility] Comment on above: Performed By: #### L 100.0100, L501.5425, L500.2500, L503.6620 ####[facility] [address] [place], [address] Chest 1 View (Portable)on Chest 1 View (Portable) Normal [facility] Emergency Department Summary on 02-02-2024 Emergency Department Summary Normal [facility] H AND P Exam - Hospitaliston 02-02-2024 H&P Exam - Hospitalist Normal [facility] L501.5425on 02-02-2024 TROPONIN-I HS 28 pg/mL Normal 3.0-78.0 [facility] Comment on above: Order Comment: 1Y Result Comment: Sara saleh Note: New Test Units and Gender Specific Reference Ranges. For more information see Policy Stat Procedure [place] High Sensitivity Troponin (TNIH) and attachments. Performed By: #### L 100.0100, L501.5425, L500.2500, L503.6620 ####[facility] [address] [place], [address] Stool Occult Blood iFOBon STOB Negative Normal [facility] Comment on above: Performed By: #### M 100.7900 ####[facility] [address] [place], [address] CBC-Complete Blood Cnt No Di ffon 01-22-2024 Erythrocyte distribution width (RBC) [Ratio] 13.5 % Normal 11.6-14.6 [facility] Comment on above: Order Comment: CC CM P TO DR. YURIDIA HERANNDEZ Performed By: #### L 500.4050, L509.1000, L100.0500, L506.1000 ####[facility] [address] [place], [address] Hematocrit (Bld) [Volume fraction] 29.4 % Low 40-54 [facility] Comment on above: Order Comment: CC CM P TO DR. YURIDIA HERNANDEZ Performed By: #### L 500.4050, L509.1000, L100.0500, L506.1000 ####[facility] [address] [place], [address] Hemoglobin (Bld) [Mass/Vol] 9.4 g/dL Low 13.0-16.5 [facility] Comment on above: Order Comment: CC CM P TO DR. YURIDIA HERNANDEZ Performed By: #### L 500.4050, L509.1000, L100.0500, L506.1000 ####[facility] [address] [place], [address] MCH (RBC) [Entitic mass] 30.6 pg Normal 27.0-32.0 [facility] Comment on above: Order Comment: CC CM P TO DR. YURIDIA HERNANDEZ Performed By: #### L 500.4050, L509.1000, L100.0500, L506.1000 ####[facility] [address] [place], [address] MCHC (RBC) [Mass/Vol] 32.0 g/dL Normal 32-36 [facility] Comment on above: Order Comment: CC CM P TO DR. YURIDIA HERNANDEZ Performed By: #### L 500.4050, L509.1000, L100.0500, L506.1000 ####[facility] [address] [place], [address] MCV (RBC) [Entitic vol] 95.8 fL High 80-94 [facility] Comment on above: Order Comment: CC CM P TO DR. YURIDIA HERNANDEZ Performed By: #### L 500.4050, L509.1000, L100.0500, L506.1000 ####[facility] [address] [place], [address] Platelet mean volume (Bld) [Entitic vol] 11.4 fL Normal 6.2-12.0 [facility] Comment on above: Order Comment: CC CM P TO DR. YURIDIA HERNANDEZ Performed By: #### L 500.4050, L509.1000, L100.0500, L506.1000 ####[facility] [address] [place], [address] Platelets (Bld) [#/Vol] 92 10*3/uL Low 150-450 [facility] Comment on above: Order Comment: CC CM P TO DR. YURIDIA HERNANDEZ Performed By: #### L 500.4050, L509.1000, L100.0500, L506.1000 ####[facility] [address] [place], [address] RBC (Bld) [#/Vol] 3.07 10*6/uL Low 4.6-6.2 [facility] Comment on above: Order Comment: CC CM P TO DR. YURIDIA HERNANDEZ Performed By: #### L 500.4050, L509.1000, L100.0500, L506.1000 ####[facility] [address] [place], [address] RDW SD 47.8 fl High 35.1-43.9 [facility] Comment on above: Order Comment: CC CM P TO DR. YURIDIA HERNANDEZ Performed By: #### L 500.4050, L509.1000, L100.0500, L506.1000 ####[facility] [address] [place], [address] WBC (Bld) [#/Vol] 8.8 10*3/uL Normal 4.4-11.0 [facility] Comment on above: Order Comment: CC CM P TO DR. YURIDIA HERNANDEZ Performed By: #### L 500.4050, L509.1000, L100.0500, L506.1000 ####[facility] [address] [place], [address] Comprehensive Metabolic Prof [facility] 01-22-2024 Albumin [Mass/Vol] 3.5 g/dL Normal 3.2-5.0 [facility] Comment on above: Order Comment: CC CM P TO DR. YURIDIA HERNANDEZ Performed By: #### L 500.4050, L509.1000, L100.0500, L506.1000 ####[facility] [address] [place], [address] Albumin/Globulin [Mass ratio] 1.0 {ratio} Normal 0.9-2.4 [facility] Comment on above: Order Comment: CC CM P TO DR. YURIDIA HERNANDEZ Performed By: #### L 500.4050, L509.1000, L100.0500, L506.1000 ####[facility] [address] [place], [address] ALK P 67 U/L Normal 45-117 [facility] Comment on above: Order Comment: CC CM P TO DR. YURIDIA HERNANDEZ Performed By: #### L 500.4050, L509.1000, L100.0500, L506.1000 ####[facility] [address] [place], [address] ALT [Catalytic activity/Vol] 22 U/L Normal 16-61 [facility] Comment on above: Order Comment: CC CM P TO DR. YURIDIA HERNANDEZ Performed By: #### L 500.4050, L509.1000, L100.0500, L506.1000 ####[facility] [address] [place], [address] AST [Catalytic activity/Vol] 12 U/L Low 15-37 [facility] Comment on above: Order Comment: CC CM P TO DR. YURIDIA HERNANDEZ Performed By: #### L 500.4050, L509.1000, L100.0500, L506.1000 ####[facility] [address] [place], [address] Bilirubin [Mass/Vol] 0.60 mg/dL Normal 0.20-1.00 [facility] Comment on above: Order Comment: CC CM P TO DR. YURIDIA HERNANDEZ Result Comment: For patients on eltrombopag therapy, use of Dimension [place] TBIL is not recommended. Performed By: #### L 500.4050, L509.1000, L100.0500, L506.1000 ####[facility] [address] [place], [address] BUN/CRE 32.0 RATIO High 10-20 [facility] Comment on above: Order Comment: CC CM P TO DR. YURIDIA HERNANDEZ Performed By: #### L 500.4050, L509.1000, L100.0500, L506.1000 ####[facility] [address] [place], [address] CA,Total 9.4 mg/dL Normal 8.5-10.1 [facility] Comment on above: Order Comment: CC CM P TO DR. YURIDIA HERNANDEZ Performed By: #### L 500.4050, L509.1000, L100.0500, L506.1000 ####[facility] [address] [place], [address] Chloride [Moles/Vol] 106 mmol/L Normal 98-107 [facility] Comment on above: Order Comment: CC CM P TO DR. YURIDIA HERNANDEZ Performed By: #### L 500.4050, L509.1000, L100.0500, L506.1000 ####[facility] [address] [place], [address] CO2 [Moles/Vol] 28.0 mmol/L Normal 21.0-32.0 [facility] Comment on above: Order Comment: CC CM P TO DR. YURIDIA HERNANDEZ Performed By: #### L 500.4050, L509.1000, L100.0500, L506.1000 ####[facility] [address] [place], [address] Creatinine [Mass/Vol] 2.31 mg/dL High 0.70-1.30 [facility] Comment on above: Order Comment: CC CM P TO DR. YURIDIA HERNANDEZ Result Comment: The validity of the calculated GFR GFRAA in patients over70 years has not been determined. Clinical correlation isessential. Performed By: #### L 500.4050, L509.1000, L100.0500, L506.1000 ####[facility] [address] [place], [address] EST GFR - AA 35 mL/min Low >60 [facility] Comment on above: Order Comment: CC CM P TO DR. YURIDIA HERNANDEZ Result Comment: Afri can Slovenian GFR Calc Performed By: #### L 500.4050, L509.1000, L100.0500, L506.1000 ####[facility] [address] [place], [address] GAP 8 Normal 5-15 [facility] Comment on above: Order Comment: CC CM P TO DR. YURIDIA HERNANDEZ Performed By: #### L 500.4050, L509.1000, L100.0500, L506.1000 ####[facility] [address] [place], [address] GFR/1.73 sq M.predicted among non-blacks MDRD (S/P/Bld) [Vol rate/Area] 29 mL/min/{1.73_m2} Low >60 [facility] Comment on above: Order Comment: CC CM P TO DR. YURIDIA HERNANDEZ Result Comment: Non- GFR Calc Performed By: #### L 500.4050, L509.1000, L100.0500, L506.1000 ####[facility] [address] [place], [address] Globulin (S) [Mass/Vol] 3.5 g/dL Normal 2.2-4.2 [facility] Comment on above: Order Comment: CC CM P TO DR. YURIDIA HERNANDEZ Performed By: #### L 500.4050, L509.1000, L100.0500, L506.1000 ####[facility] [address] [place], [address] Glucose [Mass/Vol] 191 mg/dL High 74-106 [facility] Comment on above: Order Comment: CC CM P TO DR. YURIDIA HERNANDEZ Result Comment: Fast ing Glucose result greater than or equal to 126 mg/dLsuggests DIABETES MELLITUS per A.D.A. criteria. Performed By: #### L 500.4050, L509.1000, L100.0500, L506.1000 ####[facility] [address] [place], [address] Potassium [Moles/Vol] 4.0 mmol/L Normal 3.5-5.1 [facility] Comment on above: Order Comment: CC CM P TO DR. YURIDIA HERNANDEZ Performed By: #### L 500.4050, L509.1000, L100.0500, L506.1000 ####[facility] [address] [place], [address] Sodium [Moles/Vol] 142 mmol/L Normal 136-145 [facility] Comment on above: Order Comment: CC CM P TO DR. YURIDIA HERNANDEZ Performed By: #### L 500.4050, L509.1000, L100.0500, L506.1000 ####[facility] [address] [place], [address] T PROT 7.0 g/dL Normal 6.4-8.2 [facility] Comment on above: Order Comment: CC CM P TO DR. YURIDIA HERNANDEZ Performed By: #### L 500.4050, L509.1000, L100.0500, L506.1000 ####[facility] [address] [place], [address] Urea nitrogen [Mass/Vol] 74 mg/dL High 7-18 [facility] Comment on above: Order Comment: CC CM P TO DR. YURIDIA HERNANDEZ Performed By: #### L 500.4050, L509.1000, L100.0500, L506.1000 ####[facility] [address] [place], [address] Hemoglobin A1con 01-22-2024 HbA1c (Bld) [Mass fraction] 6.1 % High 3.8-5.6 [facility] Comment on above: Order Comment: CC AMY BS TO DR. Fidencio WASHBURN Result Comment: Norm al < 5.7 % Prediabetic 5.7 - 6.4 % Diabetic >or= 6.5 % Please note range changes. Performed By: #### L 501.9985, L500.4100 ####[facility] [address] [place], [address] Lipid Profileon 01-22-2024 Cholesterol [Mass/Vol] 180 mg/dL Normal 200 [facility] Comment on above: Order Comment: CC LA BS TO DR. Fidencio WASHBURN Result Comment: <200 mg/dL Desirable 200-240 mg/dL Borderline >240 mg/dL High Risk Performed By: #### L 501.9985, L500.4100 ####[facility] [address] [place], [address] Cholesterol in HDL [Mass/Vol] 42 mg/dL Normal [facility] Comment on above: Order Comment: CC LA BS TO DR. Fidencio WASHBURN Result Comment: The drugs N-Acetylcysteine and Metamizole may falselydepress this assay. Reference Range HDL <40 mg/dL Low HDL Cholesterol HDL >or= 60 mg/dL High HDL Cholesterol Performed By: #### L 501.9985, L500.4100 ####[facility] [address] [place], [address] Cholesterol in LDL [Mass/Vol] 95 mg/dL Normal 0-130 [facility] Comment on above: Order Comment: CC LA BS TO DR. Fidencio WASHBURN Performed By: #### L 501.9985, L500.4100 ####[facility] [address] [place], [address] Cholesterol in VLDL [Mass/Vol] 43 mg/dL High 5-40 [facility] Comment on above: Order Comment: CC LA BS TO DR. Fidencio WASHBURN Performed By: #### L 501.9985, L500.4100 ####[facility] [address] [place], [address] Triglyceride [Mass/Vol] 216 mg/dL High [facility] Comment on above: Order Comment: CC LA BS TO DR. Fidencio WASHBURN Result Comment: The drugs N-Acetylcysteine and Metamizole may falselydepress this assay.Serum Triglycerides Reference Interval Normal <150 mg/dL Borderline high 150 - 199 mg/dL High 200 - 499 mg/dL Very High > or = 500 mg/dL Performed By: #### L 501.9985, L500.4100 ####[facility] [address] [place], [address] PTHINon 01-22-2024 PTH 186.8 pg/mL High 18.4-80.1 [facility] Comment on above: Order Comment: CC CM P TO DR. YURIDIA HERNANDEZ Performed By: #### L 500.4050, L509.1000, L100.0500, L506.1000 ####[facility] [address] [place], [address] Vitamin D,25 Hydroxyon 01-21 Vitamin D 25-OH 34.1 ng/mL Normal [facility] Comment on above: Order Comment: CC CM P TO DR. YURIDIA HERNANDEZ Result Comment: Celia min D 25(OH) Status Range Deficiency <20 ng/mL (50nmol/L) Insufficiency 20 - 30 ng/mL (50 - 75 nmol/L) Sufficiency 30 - 100 ng/mL (75 - 250 nmol/L) Toxicity >100 ng/mL (>250 nmol/L) Performed By: #### L 500.4050, L509.1000, L100.0500, L506.1000 ####[facility] [address] [place], [address] 12 Lead EKGon 01-10-2024 12 Lead EKG Normal [facility] Basic Metabolic Profile (BMP )on 01-10-2024 BUN/CRE 36.3 RATIO High 10-20 [facility] Comment on above: Performed By: #### L 100.0100, L500.2500 ####[facility] [address] [place], [address] CA,Total 8.6 mg/dL Normal 8.5-10.1 [facility] Comment on above: Performed By: #### L 100.0100, L500.2500 ####[facility] [address] [place], [address] Chloride [Moles/Vol] 110 mmol/L High 98-107 [facility] Comment on above: Performed By: #### L 100.0100, L500.2500 ####[facility] [address] [place], [address] CO2 [Moles/Vol] 28.0 mmol/L Normal 21.0-32.0 [facility] Comment on above: Performed By: #### L 100.0100, L500.2500 ####[facility] [address] [place], [address] Creatinine [Mass/Vol] 2.48 mg/dL High 0.70-1.30 [facility] Comment on above: Result Comment: The validity of the calculated GFR GFRAA in patients over70 years has not been determined. Clinical correlation isessential. Performed By: #### L 100.0100, L500.2500 ####[facility] [address] [place], [address] ECRCL 21.44 ml/min Normal [facility] Comment on above: Performed By: #### L 100.0100, L500.2500 ####[facility] [address] [place], [address] EST GFR - AA 32 mL/min Low >60 [facility] Comment on above: Result Comment: Afri can Slovenian GFR Calc Performed By: #### L 100.0100, L500.2500 ####[facility] [address] [place], [address] GAP 7 Normal 5-15 [facility] Comment on above: Performed By: #### L 100.0100, L500.2500 ####[facility] [address] [place], [address] GFR/1.73 sq M.predicted among non-blacks MDRD (S/P/Bld) [Vol rate/Area] 27 mL/min/{1.73_m2} Low >60 [facility] Comment on above: Result Comment: Non- GFR Calc Performed By: #### L 100.0100, L500.2500 ####[facility] [address] [place], [address] Glucose [Mass/Vol] 175 mg/dL High 74-106 [facility] Comment on above: Result Comment: Fast ing Glucose result greater than or equal to 126 mg/dLsuggests DIABETES MELLITUS per A.D.A. criteria. Performed By: #### L 100.0100, L500.2500 ####[facility] [address] [place], [address] Potassium [Moles/Vol] 4.5 mmol/L Normal 3.5-5.1 [facility] Comment on above: Performed By: #### L 100.0100, L500.2500 ####[facility] [address] [place], [address] Sodium [Moles/Vol] 145 mmol/L Normal 136-145 [facility] Comment on above: Performed By: #### L 100.0100, L500.2500 ####[facility] [address] [place], [address] Urea nitrogen [Mass/Vol] 90 mg/dL High 7-18 [facility] Comment on above: Performed By: #### L 100.0100, L500.2500 ####[facility] [address] [place], [address] CBC W/Diff, Automatedon 12-12 PLT EST MOD DEC Normal ADEQ [facility] Comment on above: Result Comment: AMENDED REPORT 01/10/241950 PLT EST previously reported as: MOD DEC Performed By: #### L 100.0100, L500.2500 ####[facility] [address] [place], [address] Chest 1 View (Portable)on Chest 1 View (Portable) Normal [facility] Emergency Department Summary on 01-10-2024 Emergency Department Summary Normal [facility] M100.678on 01-10-2024 M100.678 Pending SARS-CoV-2 (COVID 19) Negative INFLUENZA A Negative INFLUENZA B Negative RSV PCR Negative Normal [facility] Comment on above: Performed By: #### M 100.678 ####[facility] [address] [place], [address] CBC W/Diff, Automatedon 12-12 Absolute Lymph 1.19 X10 3/uL Normal 0.83-4.51 [facility] Comment on above: Performed By: #### L 100.0100, L503.6030 ####[facility] [address] [place], [address] Absolute Neut 3.4 X10 3/uL Normal 2.0-7.7 [facility] Comment on above: Performed By: #### L 100.0100, L503.6030 ####[facility] [address] [place], [address] Basophils/100 WBC (Bld) 0.4 % Normal 0-1 [facility] Comment on above: Performed By: #### L 100.0100, L503.6030 ####[facility] [address] [place], [address] Eosinophils/100 WBC (Bld) 8.1 % High 0-5 [facility] Comment on above: Performed By: #### L 100.0100, L503.6030 ####[facility] [address] [place], [address] Erythrocyte distribution width (RBC) [Ratio] 14.0 % Normal 11.6-14.6 [facility] Comment on above: Performed By: #### L 100.0100, L503.6030 ####[facility] [address] [place], [address] Hematocrit (Bld) [Volume fraction] 29.9 % Low 40-54 [facility] Comment on above: Performed By: #### L 100.0100, L503.6030 ####[facility] [address] [place], [address] Hemoglobin (Bld) [Mass/Vol] 9.4 g/dL Low 13.0-16.5 [facility] Comment on above: Performed By: #### L 100.0100, L503.6030 ####[facility] [address] [place], [address] IG% 0.400 Normal 0.0-0.9 [facility] Comment on above: Result Comment: IG% - Immature Granulocytes (promyelocytes, myelocytes andmetamyelocytes) > 1% indicates that a LEFT SHIFT is Present. Performed By: #### L 100.0100, L503.6030 ####[facility] [address] [place], [address] Lymphocytes/100 WBC (Bld) 21.4 % Normal 19-41 [facility] Comment on above: Performed By: #### L 100.0100, L503.6030 ####[facility] [address] [place], [address] MCH (RBC) [Entitic mass] 30.3 pg Normal 27.0-32.0 [facility] Comment on above: Performed By: #### L 100.0100, L503.6030 ####[facility] [address] [place], [address] MCHC (RBC) [Mass/Vol] 31.4 g/dL Low 32-36 [facility] Comment on above: Performed By: #### L 100.0100, L503.6030 ####[facility] [address] [place], [address] MCV (RBC) [Entitic vol] 96.5 fL High 80-94 [facility] Comment on above: Performed By: #### L 100.0100, L503.6030 ####[facility] [address] [place], [address] Monocytes/100 WBC (Bld) 8.4 % Normal 0-10 [facility] Comment on above: Performed By: #### L 100.0100, L503.6030 ####[facility] [address] [place], [address] Neutrophils/100 WBC (Bld) 61.3 % Normal 47-70 [facility] Comment on above: Performed By: #### L 100.0100, L503.6030 ####[facility] [address] [place], [address] Nucleated RBC (Bld) [#/Vol] 0 10*3/uL Normal 0-5 [facility] Comment on above: Performed By: #### L 100.0100, L503.6030 ####[facility] [address] [place], [address] Platelet mean volume (Bld) [Entitic vol] 10.6 fL Normal 6.2-12.0 [facility] Comment on above: Performed By: #### L 100.0100, L503.6030 ####[facility] [address] [place], [address] Platelets (Bld) [#/Vol] 102 10*3/uL Low 150-450 [facility] Comment on above: Performed By: #### L 100.0100, L503.6030 ####[facility] [address] [place], [address] RBC (Bld) [#/Vol] 3.10 10*6/uL Low 4.6-6.2 [facility] Comment on above: Performed By: #### L 100.0100, L503.6030 ####[facility] [address] [place], [address] RDW SD 48.8 fl High 35.1-43.9 [facility] Comment on above: Performed By: #### L 100.0100, L503.6030 ####[facility] [address] [place], [address] WBC (Bld) [#/Vol] 5.6 10*3/uL Normal 4.4-11.0 [facility] Comment on above: Performed By: #### L 100.0100, L503.6030 ####[facility] [address] [place], [address] Comprehensive Metabolic Prof ilon 01-09-2024 Albumin [Mass/Vol] 3.4 g/dL Normal 3.2-5.0 [facility] Comment on above: Performed By: #### L 506.1000, L500.4050, L509.1000 ####[facility] [address] [place], [address] Albumin/Globulin [Mass ratio] 0.9 {ratio} Normal 0.9-2.4 [facility] Comment on above: Performed By: #### L 506.1000, L500.4050, L509.1000 ####[facility] [address] [place], [address] ALK P 68 U/L Normal 45-117 [facility] Comment on above: Performed By: #### L 506.1000, L500.4050, L509.1000 ####[facility] [address] [place], [address] ALT [Catalytic activity/Vol] 25 U/L Normal 16-61 [facility] Comment on above: Performed By: #### L 506.1000, L500.4050, L509.1000 ####[facility] [address] [place], [address] AST [Catalytic activity/Vol] 16 U/L Normal 15-37 [facility] Comment on above: Performed By: #### L 506.1000, L500.4050, L509.1000 ####[facility] [address] [place], [address] Bilirubin [Mass/Vol] 0.50 mg/dL Normal 0.20-1.00 [facility] Comment on above: Result Comment: For patients on eltrombopag therapy, use of Dimension [place] TBIL is not recommended. Performed By: #### L 506.1000, L500.4050, L509.1000 ####[facility] [address] [place], [address] BUN/CRE 37.2 RATIO High 10-20 [facility] Comment on above: Performed By: #### L 506.1000, L500.4050, L509.1000 ####[facility] [address] [place], [address] CA,Total 9.0 mg/dL Normal 8.5-10.1 [facility] Comment on above: Performed By: #### L 506.1000, L500.4050, L509.1000 ####[facility] [address] [place], [address] Chloride [Moles/Vol] 108 mmol/L High 98-107 [facility] Comment on above: Performed By: #### L 506.1000, L500.4050, L509.1000 ####[facility] [address] [place], [address] CO2 [Moles/Vol] 32.0 mmol/L Normal 21.0-32.0 [facility] Comment on above: Performed By: #### L 506.1000, L500.4050, L509.1000 ####[facility] [address] [place], [address] Creatinine [Mass/Vol] 2.42 mg/dL High 0.70-1.30 [facility] Comment on above: Result Comment: The validity of the calculated GFR GFRAA in patients over70 years has not been determined. Clinical correlation isessential. Performed By: #### L 506.1000, L500.4050, L509.1000 ####[facility] [address] [place], [address] EST GFR - AA 33 mL/min Low >60 [facility] Comment on above: Result Comment: Afri can Slovenian GFR Calc Performed By: #### L 506.1000, L500.4050, L509.1000 ####[facility] [address] [place], [address] GAP 3 Low 5-15 [facility] Comment on above: Performed By: #### L 506.1000, L500.4050, L509.1000 ####[facility] [address] [place], [address] GFR/1.73 sq M.predicted among non-blacks MDRD (S/P/Bld) [Vol rate/Area] 27 mL/min/{1.73_m2} Low >60 [facility] Comment on above: Result Comment: Non- GFR Calc Performed By: #### L 506.1000, L500.4050, L509.1000 ####[facility] [address] [place], [address] Globulin (S) [Mass/Vol] 3.6 g/dL Normal 2.2-4.2 [facility] Comment on above: Performed By: #### L 506.1000, L500.4050, L509.1000 ####[facility] [address] [place], [address] Glucose [Mass/Vol] 79 mg/dL Normal 74-106 [facility] Comment on above: Performed By: #### L 506.1000, L500.4050, L509.1000 ####[facility] [address] [place], [address] Potassium [Moles/Vol] 4.5 mmol/L Normal 3.5-5.1 [facility] Comment on above: Performed By: #### L 506.1000, L500.4050, L509.1000 ####[facility] [address] [place], [address] Sodium [Moles/Vol] 143 mmol/L Normal 136-145 [facility] Comment on above: Performed By: #### L 506.1000, L500.4050, L509.1000 ####[facility] [address] [place], [address] T PROT 7.0 g/dL Normal 6.4-8.2 [facility] Comment on above: Performed By: #### L 506.1000, L500.4050, L509.1000 ####[facility] [address] [place], [address] Urea nitrogen [Mass/Vol] 90 mg/dL High 7-18 [facility] Comment on above: Performed By: #### L 506.1000, L500.4050, L509.1000 ####[facility] [address] [place], [address] Gastroenterology Visit Repor ton 01-09-2024 Gastroenterology Visit Report Normal [facility] Iron+Iron Binding Capacityon 01-09-2024 Iron [Mass/Vol] 75 ug/dL Normal 65-175 [facility] Comment on above: Performed By: #### L 100.0100, L503.6030 ####[facility] [address] [place], [address] IRON SATURATION 26.0 Normal 15.0-55.0 [facility] Comment on above: Performed By: #### L 100.0100, L503.6030 ####[facility] [address] [place], [address] TIBC 289 ug/dL Normal 250-450 [facility] Comment on above: Performed By: #### L 100.0100, L503.6030 ####[facility] [address] [place], [address] PTHINon 01-09-2024 PTH 196.4 pg/mL High 18.4-80.1 [facility] Comment on above: Performed By: #### L 506.1000, L500.4050, L509.1000 ####[facility] [address] [place], [address] Vitamin D,25 Hydroxyon 01-08 Vitamin D 25-OH 33.8 ng/mL Normal [facility] Comment on above: Result Comment: Celia min D 25(OH) Status Range Deficiency <20 ng/mL (50nmol/L) Insufficiency 20 - 30 ng/mL (50 - 75 nmol/L) Sufficiency 30 - 100 ng/mL (75 - 250 nmol/L) Toxicity >100 ng/mL (>250 nmol/L) Performed By: #### L 506.1000, L500.4050, L509.1000 ####[facility] [address] [place], [address] L5000.0010on 01-01-2024 Natriuretic peptide B (Bld) [Mass/Vol] 57.9 pg/mL Normal 0.0-100.0 [facility] Comment on above: Order Comment: Speci men Comment: A duplicate report has been generateddue to demographicSpecimen Comment: updates. Result Comment: [employer] XP methodologyPerformed at: - [facility] [address] [id number] Director: Tanmay Damon PhD, Phone: [phone] Performed By: #### L 100.0100, L501.4020, L5000.0010, L500.2500 ####[facility] [address] [place], [address] EGD Reporton 12-31-2023 EGD Report Normal [facility] Bedside Glucoseon 12-28-2023 FINGERSTICK GLU 192 mg/dL High 74-106 [facility] Comment on above: Result Comment: MYKE GEMENT OF PATIENT CARE PER NURSING PROTOCOL Performed By: #### L 501.080 ####[facility] [address] [place], [address] FINGERSTICK GLU 116 mg/dL High 74-106 [facility] Comment on above: Result Comment: MYKE GEMENT OF PATIENT CARE PER NURSING PROTOCOL Performed By: #### L 501.080 ####[facility] [address] [place], [address] CBC W/Diff, Automatedon 12-10 Absolute Lymph 0.92 X10 3/uL Normal 0.83-4.51 [facility] Comment on above: Performed By: #### L 100.0100 ####[facility] [address] [place], [address] Absolute Neut 3.8 X10 3/uL Normal 2.0-7.7 [facility] Comment on above: Performed By: #### L 100.0100 ####[facility] [address] [place], [address] Basophils/100 WBC (Bld) 0.7 % Normal 0-1 [facility] Comment on above: Performed By: #### L 100.0100 ####[facility] [address] [place], [address] Eosinophils/100 WBC (Bld) 3.8 % Normal 0-5 [facility] Comment on above: Performed By: #### L 100.0100 ####[facility] [address] [place], [address] Erythrocyte distribution width (RBC) [Ratio] 13.6 % Normal 11.6-14.6 [facility] Comment on above: Performed By: #### L 100.0100 ####[facility] [address] [place], [address] Hematocrit (Bld) [Volume fraction] 23.3 % Low 40-54 [facility] Comment on above: Performed By: #### L 100.0100 ####[facility] [address] [place], [address] Hemoglobin (Bld) [Mass/Vol] 7.7 g/dL Low 13.0-16.5 [facility] Comment on above: Performed By: #### L 100.0100 ####[facility] [address] [place], [address] IG% 0.400 Normal 0.0-0.9 [facility] Comment on above: Result Comment: IG% - Immature Granulocytes (promyelocytes, myelocytes andmetamyelocytes) > 1% indicates that a LEFT SHIFT is Present. Performed By: #### L 100.0100 ####[facility] [address] [place], [address] Lymphocytes/100 WBC (Bld) 16.5 % Low 19-41 [facility] Comment on above: Performed By: #### L 100.0100 ####[facility] [address] [place], [address] MCH (RBC) [Entitic mass] 31.0 pg Normal 27.0-32.0 [facility] Comment on above: Performed By: #### L 100.0100 ####[facility] [address] [place], [address] MCHC (RBC) [Mass/Vol] 33.0 g/dL Normal 32-36 [facility] Comment on above: Performed By: #### L 100.0100 ####[facility] [address] [place], [address] MCV (RBC) [Entitic vol] 94.0 fL Normal 80-94 [facility] Comment on above: Performed By: #### L 100.0100 ####[facility] [address] [place], [address] Monocytes/100 WBC (Bld) 9.7 % Normal 0-10 [facility] Comment on above: Performed By: #### L 100.0100 ####[facility] [address] [place], [address] Neutrophils/100 WBC (Bld) 68.9 % Normal 47-70 [facility] Comment on above: Performed By: #### L 100.0100 ####[facility] [address] [place], [address] Nucleated RBC (Bld) [#/Vol] 0 10*3/uL Normal 0-5 [facility] Comment on above: Performed By: #### L 100.0100 ####[facility] [address] [place], [address] Platelet mean volume (Bld) [Entitic vol] 11.3 fL Normal 6.2-12.0 [facility] Comment on above: Performed By: #### L 100.0100 ####[facility] [address] [place], [address] Platelets (Bld) [#/Vol] 108 10*3/uL Low 150-450 [facility] Comment on above: Performed By: #### L 100.0100 ####[facility] [address] [place], [address] RBC (Bld) [#/Vol] 2.48 10*6/uL Low 4.6-6.2 [facility] Comment on above: Performed By: #### L 100.0100 ####[facility] [address] [place], [address] RDW SD 46.5 fl High 35.1-43.9 [facility] Comment on above: Performed By: #### L 100.0100 ####[facility] [address] [place], [address] WBC (Bld) [#/Vol] 5.6 10*3/uL Normal 4.4-11.0 [facility] Comment on above: Performed By: #### L 100.0100 ####[facility] [address] [place], [address] Discharge Instructionon 12-10 Discharge Instruction Normal [facility] Bedside Glucoseon 12-27-2023 FINGERSTICK GLU 159 mg/dL High 74-106 [facility] Comment on above: Result Comment: MYKE GEMENT OF PATIENT CARE PER NURSING PROTOCOL Performed By: #### L 501.080 ####[facility] [address] [place], [address] FINGERSTICK GLU 168 mg/dL High 74-106 [facility] Comment on above: Result Comment: MYKE GEMENT OF PATIENT CARE PER NURSING PROTOCOL Performed By: #### L 501.080 ####[facility] [address] [place], [address] FINGERSTICK GLU 155 mg/dL High 74-106 [facility] Comment on above: Result Comment: MYKE GEMENT OF PATIENT CARE PER NURSING PROTOCOL Performed By: #### L 501.080 ####[facility] [address] [place], [address] FINGERSTICK GLU 143 mg/dL High 74-106 [facility] Comment on above: Result Comment: MYKE GEMENT OF PATIENT CARE PER NURSING PROTOCOL Performed By: #### L 501.080 ####[facility] [address] [place], [address] FINGERSTICK GLU 193 mg/dL High 74-106 [facility] Comment on above: Result Comment: MYKE GEMENT OF PATIENT CARE PER NURSING PROTOCOL Performed By: #### L 501.080 ####[facility] [address] [place], [address] CBC W/Diff, Automatedon 12-10 Absolute Lymph 1.13 X10 3/uL Normal 0.83-4.51 [facility] Comment on above: Performed By: #### L 100.0100 ####[facility] [address] [place], [address] Absolute Neut 4.0 X10 3/uL Normal 2.0-7.7 [facility] Comment on above: Performed By: #### L 100.0100 ####[facility] [address] [place], [address] Basophils/100 WBC (Bld) 0.5 % Normal 0-1 [facility] Comment on above: Performed By: #### L 100.0100 ####[facility] [address] [place], [address] Eosinophils/100 WBC (Bld) 4.6 % Normal 0-5 [facility] Comment on above: Performed By: #### L 100.0100 ####[facility] [address] [place], [address] Erythrocyte distribution width (RBC) [Ratio] 13.6 % Normal 11.6-14.6 [facility] Comment on above: Performed By: #### L 100.0100 ####[facility] [address] [place], [address] Hematocrit (Bld) [Volume fraction] 24.1 % Low 40-54 [facility] Comment on above: Performed By: #### L 100.0100 ####[facility] [address] [place], [address] Hemoglobin (Bld) [Mass/Vol] 7.8 g/dL Low 13.0-16.5 [facility] Comment on above: Performed By: #### L 100.0100 ####[facility] [address] [place], [address] IG% 0.300 Normal 0.0-0.9 [facility] Comment on above: Result Comment: IG% - Immature Granulocytes (promyelocytes, myelocytes andmetamyelocytes) > 1% indicates that a LEFT SHIFT is Present. Performed By: #### L 100.0100 ####[facility] [address] [place], [address] Lymphocytes/100 WBC (Bld) 19.1 % Normal 19-41 [facility] Comment on above: Performed By: #### L 100.0100 ####[facility] [address] [place], [address] MCH (RBC) [Entitic mass] 30.7 pg Normal 27.0-32.0 [facility] Comment on above: Performed By: #### L 100.0100 ####[facility] [address] [place], [address] MCHC (RBC) [Mass/Vol] 32.4 g/dL Normal 32-36 [facility] Comment on above: Performed By: #### L 100.0100 ####[facility] [address] [place], [address] MCV (RBC) [Entitic vol] 94.9 fL High 80-94 [facility] Comment on above: Performed By: #### L 100.0100 ####[facility] [address] [place], [address] Monocytes/100 WBC (Bld) 7.8 % Normal 0-10 [facility] Comment on above: Performed By: #### L 100.0100 ####[facility] [address] [place], [address] Neutrophils/100 WBC (Bld) 67.7 % Normal 47-70 [facility] Comment on above: Performed By: #### L 100.0100 ####[facility] [address] [place], [address] Nucleated RBC (Bld) [#/Vol] 0 10*3/uL Normal 0-5 [facility] Comment on above: Performed By: #### L 100.0100 ####[facility] [address] [place], [address] Platelet mean volume (Bld) [Entitic vol] 11.6 fL Normal 6.2-12.0 [facility] Comment on above: Performed By: #### L 100.0100 ####[facility] [address] [place], [address] Platelets (Bld) [#/Vol] 119 10*3/uL Low 150-450 [facility] Comment on above: Performed By: #### L 100.0100 ####[facility] [address] [place], [address] RBC (Bld) [#/Vol] 2.54 10*6/uL Low 4.6-6.2 [facility] Comment on above: Performed By: #### L 100.0100 ####[facility] [address] [place], [address] RDW SD 46.5 fl High 35.1-43.9 [facility] Comment on above: Performed By: #### L 100.0100 ####[facility] [address] [place], [address] WBC (Bld) [#/Vol] 5.9 10*3/uL Normal 4.4-11.0 [facility] Comment on above: Performed By: #### L 100.0100 ####[facility] [address] [place], [address] Comprehensive Metabolic Prof ilon 12-27-2023 Albumin [Mass/Vol] 3.0 g/dL Low 3.2-5.0 [facility] Comment on above: Performed By: #### L 500.4050 ####[facility] [address] [place], [address] Albumin/Globulin [Mass ratio] 0.9 {ratio} Normal 0.9-2.4 [facility] Comment on above: Performed By: #### L 500.4050 ####[facility] [address] [place], [address] ALK P 62 U/L Normal 45-117 [facility] Comment on above: Performed By: #### L 500.4050 ####[facility] [address] [place], [address] ALT [Catalytic activity/Vol] 19 U/L Normal 16-61 [facility] Comment on above: Performed By: #### L 500.4050 ####[facility] [address] [place], [address] AST [Catalytic activity/Vol] 15 U/L Normal 15-37 [facility] Comment on above: Performed By: #### L 500.4050 ####[facility] [address] [place], [address] Bilirubin [Mass/Vol] 0.60 mg/dL Normal 0.20-1.00 [facility] Comment on above: Result Comment: For patients on eltrombopag therapy, use of Dimension [place] TBIL is not recommended. Performed By: #### L 500.4050 ####[facility] [address] [place], [address] BUN/CRE 53.3 RATIO High 10-20 [facility] Comment on above: Performed By: #### L 500.4050 ####[facility] [address] [place], [address] CA,Total 9.0 mg/dL Normal 8.5-10.1 [facility] Comment on above: Performed By: #### L 500.4050 ####[facility] [address] [place], [address] Chloride [Moles/Vol] 107 mmol/L Normal 98-107 [facility] Comment on above: Performed By: #### L 500.4050 ####[facility] [address] [place], [address] CO2 [Moles/Vol] 30.0 mmol/L Normal 21.0-32.0 [facility] Comment on above: Performed By: #### L 500.4050 ####[facility] [address] [place], [address] Creatinine [Mass/Vol] 2.25 mg/dL High 0.70-1.30 [facility] Comment on above: Result Comment: The validity of the calculated GFR GFRAA in patients over70 years has not been determined. Clinical correlation isessential. Performed By: #### L 500.4050 ####[facility] [address] [place], [address] ECRCL 24.04 ml/min Normal [facility] Comment on above: Performed By: #### L 500.4050 ####[facility] [address] [place], [address] EST GFR - AA 36 mL/min Low >60 [facility] Comment on above: Result Comment: Afri can Slovenian GFR Calc Performed By: #### L 500.4050 ####[facility] [address] [place], [address] GAP 6 Normal 5-15 [facility] Comment on above: Performed By: #### L 500.4050 ####[facility] [address] [place], [address] GFR/1.73 sq M.predicted among non-blacks MDRD (S/P/Bld) [Vol rate/Area] 30 mL/min/{1.73_m2} Low >60 [facility] Comment on above: Result Comment: Non- GFR Calc Performed By: #### L 500.4050 ####[facility] [address] [place], [address] Globulin (S) [Mass/Vol] 3.4 g/dL Normal 2.2-4.2 [facility] Comment on above: Performed By: #### L 500.4050 ####[facility] [address] [place], [address] Glucose [Mass/Vol] 98 mg/dL Normal 74-106 [facility] Comment on above: Performed By: #### L 500.4050 ####[facility] [facility] [address] [place], [address] Potassium [Moles/Vol] 4.0 mmol/L Normal 3.5-5.1 [facility] Comment on above: Performed By: #### L 500.4050 ####[facility] [address] [place], [address] Sodium [Moles/Vol] 142 mmol/L Normal 136-145 [facility] Comment on above: Performed By: #### L 500.4050 ####[facility] [address] [place], [address] T PROT 6.4 g/dL Normal 6.4-8.2 [facility] Comment on above: Performed By: #### L 500.4050 ####[facility] [address] [place], [address] Urea nitrogen [Mass/Vol] 120 mg/dL Invalid Interpretation Code 7-18 [facility] Comment on above: Result Comment: Crit ical Result(s) Called at: 06:52:02 12/27/2023 by:Didier Donovan. Results read back by same. Performed By: #### L 500.4050 ####[facility] [address] [place], [address] Ferritinon 12-27-2023 Ferritin [Mass/Vol] 32 ng/mL Normal 26-388 [facility] Comment on above: Performed By: #### L 503.6550, L503.6030 ####[facility] [address] [place], [address] H Pylori (initial)on 024 H Pylori (initial) Normal [facility] Comment on above: Performed By: #### P H.PYLORI ####[facility] [address] [place], [address] HH, Hemoglobin AND Hematocri ton 12-27-2023 Hematocrit (Bld) [Volume fraction] 24.3 % Low 40-54 [facility] Comment on above: Performed By: #### L 100.0600 ####[facility] [address] [place], [address] Hemoglobin (Bld) [Mass/Vol] 7.9 g/dL Low 13.0-16.5 [facility] Comment on above: Performed By: #### L 100.0600 ####[facility] [address] [place], [address] Hematocrit (Bld) [Volume fraction] 24.1 % Low 40-54 [facility] Comment on above: Performed By: #### L 100.0600 ####[facility] [address] [place], [address] Hemoglobin (Bld) [Mass/Vol] 7.8 g/dL Low 13.0-16.5 [facility] Comment on above: Performed By: #### L 100.0600 ####[facility] [address] [place], [address] Hemoglobin A1con 12-27-2023 HbA1c (Bld) [Mass fraction] 5.7 % High 3.8-5.6 [facility] Comment on above: Result Comment: Norm al < 5.7 % Prediabetic 5.7 - 6.4 % Diabetic >or= 6.5 % Please note range changes. Performed By: #### L 5019925 ####[facility] [address] [place], [address] Iron+Iron Binding Capacityon 12-27-2023 Iron [Mass/Vol] 43 ug/dL Low 65-175 [facility] Comment on above: Performed By: #### L 503.6550, L503.6030 ####[facility] [address] [place], [address] IRON SATURATION 16.3 Normal 15.0-55.0 [facility] Comment on above: Performed By: #### L 503.6550, L503.6030 ####[facility] [address] [place], [address] TIBC 264 ug/dL Normal 250-450 [facility] Comment on above: Performed By: #### L 503.6550, L503.6030 ####[facility] [address] [place], [address] MR/POSTOP.ANEon 12-27-2023 MR/POSTOP.ANE Normal [facility] MR/JPLJXEAJ2av 12-27-2023 MR/POSTOPAN2 Normal [facility] Surgery Specimen Level Riky 12-27-2023 Surgery Specimen Level IV Normal [facility] Comment on above: Performed By: #### P SUIV ####[facility] [address] [place], [address] 12 Lead EKGon 12-26-2023 12 Lead EKG Normal [facility] BRCon 12-26-2023 RC Normal [facility] Comment on above: Result Comment: [id number] AN RC TRANSFUSED 12/28/23 1134 Performed By: #### B RC ####[facility] [address] [place], [address] Basic Metabolic Profile (BMP )on 12-26-2023 BUN/CRE 45.8 RATIO High 10-20 [facility] Comment on above: Order Comment: 'TROP ' Serial specimen #1, #2 or #3: 1 Performed By: #### L 100.0100, L501.4020, L5000.0010, L500.2500 ####[facility] [address] [place], [address] CA,Total 9.1 mg/dL Normal 8.5-10.1 [facility] Comment on above: Order Comment: 'TROP ' Serial specimen #1, #2 or #3: 1 Performed By: #### L 100.0100, L501.4020, L5000.0010, L500.2500 ####[facility] [address] [place], [address] Chloride [Moles/Vol] 108 mmol/L High 98-107 [facility] Comment on above: Order Comment: 'TROP ' Serial specimen #1, #2 or #3: 1 Performed By: #### L 100.0100, L501.4020, L5000.0010, L500.2500 ####[facility] [address] [place], [address] CO2 [Moles/Vol] 30.0 mmol/L Normal 21.0-32.0 [facility] Comment on above: Order Comment: 'TROP ' Serial specimen #1, #2 or #3: 1 Performed By: #### L 100.0100, L501.4020, L5000.0010, L500.2500 ####[facility] [address] [place], [address] Creatinine [Mass/Vol] 2.75 mg/dL High 0.70-1.30 [facility] Comment on above: Order Comment: 'TROP ' Serial specimen #1, #2 or #3: 1 Result Comment: The validity of the calculated GFR GFRAA in patients over70 years has not been determined. Clinical correlation isessential. Performed By: #### L 100.0100, L501.4020, L5000.0010, L500.2500 ####[facility] [address] [place], [address] ECRCL 19.84 ml/min Normal [facility] Comment on above: Order Comment: 'TROP ' Serial specimen #1, #2 or #3: 1 Performed By: #### L 100.0100, L501.4020, L5000.0010, L500.2500 ####[facility] [address] [facility] [address] EST GFR - AA 28 mL/min Low >60 [facility] Comment on above: Order Comment: 'TROP ' Serial specimen #1, #2 or #3: 1 Result Comment: Afri can Slovenian GFR Calc Performed By: #### L 100.0100, L501.4020, L5000.0010, L500.2500 ####[facility] [address] [facility] [address] GAP 7 Normal 5-15 [facility] Comment on above: Order Comment: 'TROP ' Serial specimen #1, #2 or #3: 1 Performed By: #### L 100.0100, L501.4020, L5000.0010, L500.2500 ####[facility] [address] [place], [address] GFR/1.73 sq M.predicted among non-blacks MDRD (S/P/Bld) [Vol rate/Area] 24 mL/min/{1.73_m2} Low >60 [facility] Comment on above: Order Comment: 'TROP ' Serial specimen #1, #2 or #3: 1 Result Comment: Non- GFR Calc Performed By: #### L 100.0100, L501.4020, L5000.0010, L500.2500 ####[facility] [address] [facility] [address] Glucose [Mass/Vol] 169 mg/dL High 74-106 [facility] Comment on above: Order Comment: 'TROP ' Serial specimen #1, #2 or #3: 1 Result Comment: Fast ing Glucose result greater than or equal to 126 mg/dLsuggests DIABETES MELLITUS per A.D.A. criteria. Performed By: #### L 100.0100, L501.4020, L5000.0010, L500.2500 ####[facility] [address] [place], [address] Potassium [Moles/Vol] 4.6 mmol/L Normal 3.5-5.1 [facility] Comment on above: Order Comment: 'TROP ' Serial specimen #1, #2 or #3: 1 Result Comment: Slig ht Hemolysis, Result may be falsely increased. Performed By: #### L 100.0100, L501.4020, L5000.0010, L500.2500 ####[facility] [address] [place], [address] Sodium [Moles/Vol] 144 mmol/L Normal 136-145 [facility] Comment on above: Order Comment: 'TROP ' Serial specimen #1, #2 or #3: 1 Performed By: #### L 100.0100, L501.4020, L5000.0010, L500.2500 ####[facility] [address] [place], [address] Urea nitrogen [Mass/Vol] 126 mg/dL Invalid Interpretation Code 7-18 [facility] Comment on above: Order Comment: 'TROP ' Serial specimen #1, #2 or #3: 1 Result Comment: Crit ical Result(s) Called at: 14:49:19 12/26/2023 by: JEANETTE TO JENNIFER LOPEZ. Results read back by same. Performed By: #### L 100.0100, L501.4020, L5000.0010, L500.2500 ####[facility] [address] [place], [address] CBC W/Diff, Automatedon 10- Absolute Lymph 0.86 X10 3/uL Normal 0.83-4.51 [facility] Comment on above: Performed By: #### L 100.0100, L501.4020, L5000.0010, L500.2500 ####[facility] [address] [place], [address] Absolute Neut 4.0 X10 3/uL Normal 2.0-7.7 [facility] Comment on above: Performed By: #### L 100.0100, L501.4020, L5000.0010, L500.2500 ####[facility] [address] [place], [address] Basophils/100 WBC (Bld) 0.5 % Normal 0-1 [facility] Comment on above: Performed By: #### L 100.0100, L501.4020, L5000.0010, L500.2500 ####[facility] [address] [place], [address] Eosinophils/100 WBC (Bld) 4.1 % Normal 0-5 [facility] Comment on above: Performed By: #### L 100.0100, L501.4020, L5000.0010, L500.2500 ####[facility] [address] [place], [address] Erythrocyte distribution width (RBC) [Ratio] 13.8 % Normal 11.6-14.6 [facility] Comment on above: Performed By: #### L 100.0100, L501.4020, L5000.0010, L500.2500 ####[facility] [address] [place], [address] Hematocrit (Bld) [Volume fraction] 25.9 % Low 40-54 [facility] Comment on above: Performed By: #### L 100.0100, L501.4020, L5000.0010, L500.2500 ####[facility] [address] [place], [address] Hemoglobin (Bld) [Mass/Vol] 8.3 g/dL Low 13.0-16.5 [facility] Comment on above: Performed By: #### L 100.0100, L501.4020, L5000.0010, L500.2500 ####[facility] [address] [place], [address] IG% 0.500 Normal 0.0-0.9 [facility] Comment on above: Result Comment: IG% - Immature Granulocytes (promyelocytes, myelocytes andmetamyelocytes) > 1% indicates that a LEFT SHIFT is Present. Performed By: #### L 100.0100, L501.4020, L5000.0010, L500.2500 ####[facility] [address] [place], [address] Lymphocytes/100 WBC (Bld) 15.4 % Low 19-41 [facility] Comment on above: Performed By: #### L 100.0100, L501.4020, L5000.0010, L500.2500 ####[facility] [address] [place], [address] MCH (RBC) [Entitic mass] 30.6 pg Normal 27.0-32.0 [facility] Comment on above: Performed By: #### L 100.0100, L501.4020, L5000.0010, L500.2500 ####[facility] [address] [place], [address] MCHC (RBC) [Mass/Vol] 32.0 g/dL Normal 32-36 [facility] Comment on above: Performed By: #### L 100.0100, L501.4020, L5000.0010, L500.2500 ####[facility] [address] [place], [address] MCV (RBC) [Entitic vol] 95.6 fL High 80-94 [facility] Comment on above: Performed By: #### L 100.0100, L501.4020, L5000.0010, L500.2500 ####[facility] [address] [place], [address] Monocytes/100 WBC (Bld) 7.5 % Normal 0-10 [facility] Comment on above: Performed By: #### L 100.0100, L501.4020, L5000.0010, L500.2500 ####[facility] [address] [place], [address] Neutrophils/100 WBC (Bld) 72.0 % High 47-70 [facility] Comment on above: Performed By: #### L 100.0100, L501.4020, L5000.0010, L500.2500 ####[facility] [address] [place], [address] Nucleated RBC (Bld) [#/Vol] 0 10*3/uL Normal 0-5 [facility] Comment on above: Performed By: #### L 100.0100, L501.4020, L5000.0010, L500.2500 ####[facility] [address] [place], [address] Platelet mean volume (Bld) [Entitic vol] 11.8 fL Normal 6.2-12.0 [facility] Comment on above: Performed By: #### L 100.0100, L501.4020, L5000.0010, L500.2500 ####[facility] [address] [place], [address] Platelets (Bld) [#/Vol] 124 10*3/uL Low 150-450 [facility] Comment on above: Performed By: #### L 100.0100, L501.4020, L5000.0010, L500.2500 ####[facility] [address] [place], [address] RBC (Bld) [#/Vol] 2.71 10*6/uL Low 4.6-6.2 [facility] Comment on above: Performed By: #### L 100.0100, L501.4020, L5000.0010, L500.2500 ####[facility] [address] [place], [address] RDW SD 47.5 fl High 35.1-43.9 [facility] Comment on above: Performed By: #### L 100.0100, L501.4020, L5000.0010, L500.2500 ####[facility] [address] [place], [address] WBC (Bld) [#/Vol] 5.6 10*3/uL Normal 4.4-11.0 [facility] Comment on above: Performed By: #### L 100.0100, L501.4020, L5000.0010, L500.2500 ####[facility] [address] [place], [address] Chest 1 View (Portable)on Chest 1 View (Portable) Normal [facility] Emergency Department Summary on 12-26-2023 Emergency Department Summary Normal [facility] H AND P Exam - Hospitaliston 12-26-2023 H&P Exam - Hospitalist Normal [facility] HH, Hemoglobin AND Hematocri ton 12-26-2023 Hematocrit (Bld) [Volume fraction] 23.5 % Low 40-54 [facility] Comment on above: Performed By: #### L 100.0600 ####[facility] [address] [place], [address] Hemoglobin (Bld) [Mass/Vol] 7.6 g/dL Low 13.0-16.5 [facility] Comment on above: Performed By: #### L 100.0600 ####[facility] [address] [place], [address] Hematocrit (Bld) [Volume fraction] 26.4 % Low 40-54 [facility] Comment on above: Performed By: #### L 100.0600 ####[facility] [address] [place], [address] Hemoglobin (Bld) [Mass/Vol] 8.3 g/dL Low 13.0-16.5 [facility] Comment on above: Performed By: #### L 100.0600 ####[facility] [address] [place], [address] L501.4020on 12-26-2023 TROPONIN-I HS 30 pg/mL Normal 3.0-78.0 [facility] Comment on above: Order Comment: 'TROP ' Serial specimen #1, #2 or #3: 1 Result Comment: Plea se Note: New Test Units and Gender Specific Reference Ranges. For more information see Policy Stat Procedure [place] High Sensitivity Troponin (TNIH) and attachments. Performed By: #### L 100.0100, L501.4020, L5000.0010, L500.2500 ####[facility] [address] [place], [address] Liver Profileon 12-26-2023 Albumin [Mass/Vol] 3.1 g/dL Low 3.2-5.0 [facility] Comment on above: Performed By: #### L 500.3400, L501.5200, L501.2300, L300.3900 ####[facility] [address] [place], [address] ALK P 61 U/L Normal 45-117 [facility] Comment on above: Performed By: #### L 500.3400, L501.5200, L501.2300, L300.3900 ####[facility] [address] [place], [address] ALT [Catalytic activity/Vol] 18 U/L Normal 16-61 [facility] Comment on above: Performed By: #### L 500.3400, L501.5200, L501.2300, L300.3900 ####[facility] [address] [place], [address] AST [Catalytic activity/Vol] 20 U/L Normal 15-37 [facility] Comment on above: Result Comment: Slig ht Hemolysis, Result may be falsely increased. Performed By: #### L 500.3400, L501.5200, L501.2300, L300.3900 ####[facility] [address] [place], [address] Bilirubin [Mass/Vol] 0.30 mg/dL Normal 0.20-1.00 [facility] Comment on above: Result Comment: For patients on eltrombopag therapy, use of Dimension [place] TBIL is not recommended. Performed By: #### L 500.3400, L501.5200, L501.2300, L300.3900 ####[facility] [address] [place], [address] Bilirubin.direct [Mass/Vol] 0.10 mg/dL Normal 0.00-0.30 [facility] Comment on above: Performed By: #### L 500.3400, L501.5200, L501.2300, L300.3900 ####[facility] [address] [place], [address] Globulin (S) [Mass/Vol] 3.6 g/dL Normal 2.2-4.2 [facility] Comment on above: Performed By: #### L 500.3400, L501.5200, L501.2300, L300.3900 ####[facility] [address] [place], [address] T PROT 6.7 g/dL Normal 6.4-8.2 [facility] Comment on above: Performed By: #### L 500.3400, L501.5200, L501.2300, L300.3900 ####[facility] [address] [place], [address] MR/CON.PCM.GIon 12-26-2023 MR/CON.PCM.GI Normal [facility] Magnesiumon 12-26-2023 Magnesium [Mass/Vol] 1.5 mg/dL Low 1.6-2.6 [facility] Comment on above: Result Comment: Slig ht Hemolysis, Result may be falsely increased. Performed By: #### L 500.3400, L501.5200, L501.2300, L300.3900 ####[facility] [address] [place], [address] Phosphoruson 12-26-2023 Phosphate [Mass/Vol] 3.8 mg/dL Normal 2.5-4.9 [facility] Comment on above: Performed By: #### L 500.3400, L501.5200, L501.2300, L300.3900 ####[facility] [address] [place], [address] Prothrombin Time w/INRon INR Coag (PPP) [Relative time] 1.1 {INR} Normal [facility] Comment on above: Performed By: #### L 500.3400, L501.5200, L501.2300, L300.3900 ####[facility] [address] [place], [address] PT Coag (PPP) [Time] 14.3 s Normal 11.7-14.9 [facility] Comment on above: Performed By: #### L 500.3400, L501.5200, L501.2300, L300.3900 ####[facility] [address] [place], [address] Type AND Screenon 12-26-2023 Ab SCREEN GEL Negative Normal [facility] Comment on above: Order Comment: HGI Performed By: #### B TS ####[facility] [address] [place], [address] Basic Metabolic Profile (BMP )on 12-13-2023 BUN/CRE 30.0 RATIO High 10-20 [facility] Comment on above: Order Comment: CC: Cole HERNANDEZ Performed By: #### L 503.6030, L500.2500 ####[facility] [address] [place], [address] CA,Total 9.0 mg/dL Normal 8.5-10.1 [facility] Comment on above: Order Comment: CC: Cole HERNANDEZ Performed By: #### L 503.6030, L500.2500 ####[facility] [address] [place], [address] Chloride [Moles/Vol] 110 mmol/L High 98-107 [facility] Comment on above: Order Comment: CC: Cole HERNANDEZ Performed By: #### L 503.6030, L500.2500 ####[facility] [address] [place], [address] CO2 [Moles/Vol] 28.0 mmol/L Normal 21.0-32.0 [facility] Comment on above: Order Comment: CC: Cole HERNANDEZ Performed By: #### L 503.6030, L500.2500 ####[facility] [address] [place], [address] Creatinine [Mass/Vol] 2.37 mg/dL High 0.70-1.30 [facility] Comment on above: Order Comment: CC: Cole HERNANDEZ Result Comment: The validity of the calculated GFR GFRAA in patients over70 years has not been determined. Clinical correlation isessential. Performed By: #### L 503.6030, L500.2500 ####[facility] [address] [place], [address] EST GFR - AA 34 mL/min Low >60 [facility] Comment on above: Order Comment: CC: Cole HERNANDEZ Result Comment: Afri can Slovenian GFR Calc Performed By: #### L 503.6030, L500.2500 ####[facility] [address] [place], [address] GAP 6 Normal 5-15 [facility] Comment on above: Order Comment: CC: Cole HERNANDEZ Performed By: #### L 503.6030, L500.2500 ####[facility] [address] [place], [address] GFR/1.73 sq M.predicted among non-blacks MDRD (S/P/Bld) [Vol rate/Area] 28 mL/min/{1.73_m2} Low >60 [facility] Comment on above: Order Comment: CC: Cole HERNANDEZ Result Comment: Non- GFR Calc Performed By: #### L 503.6030, L500.2500 ####[facility] [address] [place], [address] Glucose [Mass/Vol] 88 mg/dL Normal 74-106 [facility] Comment on above: Order Comment: CC: Cole HERNANDEZ Performed By: #### L 503.6030, L500.2500 ####[facility] [address] [place], [address] Potassium [Moles/Vol] 4.8 mmol/L Normal 3.5-5.1 [facility] Comment on above: Order Comment: CC: Cole HERNANDEZ Performed By: #### L 503.6030, L500.2500 ####[facility] [address] [place], [address] Sodium [Moles/Vol] 144 mmol/L Normal 136-145 [facility] Comment on above: Order Comment: CC: Cole HERNANDEZ Performed By: #### L 503.6030, L500.2500 ####[facility] [address] [place], [address] Urea nitrogen [Mass/Vol] 71 mg/dL High 7-18 [facility] Comment on above: Order Comment: CC: Cole HERNANDEZ Performed By: #### L 503.6030, L500.2500 ####[facility] [address] [place], [address] BUN Normal 7-18 [facility] Comment on above: Order Comment: Order Date: 11/23/23Order Info: 666- - BMP Result Comment: DR. WASHBURN ORDERED BMP TOO Performed By: #### L 500.2500, L100.0100 ####[facility] [address] [place], [address] BUN/CRE Normal 10-20 [facility] Comment on above: Order Comment: Order Date: 11/23/23Order Info: 06- - BMP Result Comment: DR. WASHBURN ORDERED BMP TOO Performed By: #### L 500.2500, L100.0100 ####[facility] [address] [place], [address] CA,Total Normal 8.5-10.1 [facility] Comment on above: Order Comment: Order Date: 11/23/23Order Info: 06- - BMP Result Comment: DR. WASHBURN ORDERED BMP TOO Performed By: #### L 500.2500, L100.0100 ####[facility] [address] [place], [address] CL Normal 98-107 [facility] Comment on above: Order Comment: Order Date: 11/23/23Order Info: 06- - BMP Result Comment: DR. WASHBURN ORDERED BMP TOO Performed By: #### L 500.2500, L100.0100 ####[facility] [address] [place], [address] CO2 Normal 21.0-32.0 [facility] Comment on above: Order Comment: Order Date: 11/23/23Order Info: 666- - BMP Result Comment: DR. WASHBURN ORDERED BMP TOO Performed By: #### L 500.2500, L100.0100 ####[facility] [address] [place], [address] CREAT,SERUM Normal 0.70-1.30 [facility] Comment on above: Order Comment: Order Date: 11/23/23Order Info: 666- - BMP Result Comment: DR. WASHBURN ORDERED BMP TOO Performed By: #### L 500.2500, L100.0100 ####[facility] [address] [place], [address] EST GFR Normal >60 [facility] Comment on above: Order Comment: Order Date: 11/23/23Order Info: 666- - BMP Result Comment: DR. WASHBURN ORDERED BMP TOO Performed By: #### L 500.2500, L100.0100 ####[facility] [address] [place], [address] EST GFR - AA Normal >60 [facility] Comment on above: Order Comment: Order Date: 11/23/23Order Info: 666- - BMP Result Comment: DR. WASHBURN ORDERED BMP TOO Performed By: #### L 500.2500, L100.0100 ####[facility] [address] [place], [address] GAP Normal 5-15 [facility] Comment on above: Order Comment: Order Date: 11/23/23Order Info: 666- - BMP Result Comment: DR. WASHBURN ORDERED BMP TOO Performed By: #### L 500.2500, L100.0100 ####[facility] [address] [place], [address] GLU Normal 74-106 [facility] Comment on above: Order Comment: Order Date: 11/23/23Order Info: 666- - BMP Result Comment: DR. WASHBURN ORDERED BMP TOO Performed By: #### L 500.2500, L100.0100 ####[facility] [address] [place], [address] Potassium Normal 3.5-5.1 [facility] Comment on above: Order Comment: Order Date: 11/23/23Order Info: 0667- - BMP Result Comment: DR. WASHBURN ORDERED BMP TOO Performed By: #### L 500.2500, L100.0100 ####[facility] [address] [place], [address] Basic Metabolic Profile (BMP) Normal 136-145 [facility] Comment on above: Order Comment: Order Date: 11/23/23Order Info: 0667- - BMP Result Comment: DR. WASHBURN ORDERED BMP TOO Performed By: #### L 500.2500, L100.0100 ####[facility] [address] [place], [address] CBC W/Diff, Automatedon 10-0 3-2024 Absolute Lymph 1.19 X10 3/uL Normal 0.83-4.51 [facility] Comment on above: Order Comment: CC.CM P TO DR. Fidencio WASHBURN Performed By: #### L 500.2500, L100.0100 ####[facility] [address] [place], [address] Absolute Neut 3.2 X10 3/uL Normal 2.0-7.7 [facility] Comment on above: Order Comment: CC.CM P TO DR. Fidencio WASHBURN Performed By: #### L 500.2500, L100.0100 ####[facility] [address] [place], [address] Basophils/100 WBC (Bld) 0.4 % Normal 0-1 [facility] Comment on above: Order Comment: CC.CM P TO DR. Fidencio WASHBURN Performed By: #### L 500.2500, L100.0100 ####[facility] [address] [place], [address] Eosinophils/100 WBC (Bld) 8.2 % High 0-5 [facility] Comment on above: Order Comment: CC.CM P TO DR. Fidencio WASHBURN Performed By: #### L 500.2500, L100.0100 ####[facility] [address] [place], [address] Erythrocyte distribution width (RBC) [Ratio] 13.2 % Normal 11.6-14.6 [facility] Comment on above: Order Comment: CC.CM P TO DR. Fidencio WASHBURN Performed By: #### L 500.2500, L100.0100 ####[facility] [address] [place], [address] Hematocrit (Bld) [Volume fraction] 30.3 % Low 40-54 [facility] Comment on above: Order Comment: CC.CM P TO DR. Fidencio WASHBURN Performed By: #### L 500.2500, L100.0100 ####[facility] [address] [place], [address] Hemoglobin (Bld) [Mass/Vol] 9.7 g/dL Low 13.0-16.5 [facility] Comment on above: Order Comment: CC.CM P TO DR. Fidencio WASHBURN Performed By: #### L 500.2500, L100.0100 ####[facility] [address] [place], [address] IG% 0.400 Normal 0.0-0.9 [facility] Comment on above: Order Comment: CC.CM P TO DR. Fidencio WASHBURN Result Comment: IG% - Immature Granulocytes (promyelocytes, myelocytes andmetamyelocytes) > 1% indicates that a LEFT SHIFT is Present. Performed By: #### L 500.2500, L100.0100 ####[facility] [address] [place], [address] Lymphocytes/100 WBC (Bld) 22.2 % Normal 19-41 [facility] Comment on above: Order Comment: CC.CM P TO DR. Fidencio WASHBURN Performed By: #### L 500.2500, L100.0100 ####[facility] [address] [place], [address] MCH (RBC) [Entitic mass] 30.4 pg Normal 27.0-32.0 [facility] Comment on above: Order Comment: CC.CM P TO DR. Fidencio WASHBURN Performed By: #### L 500.2500, L100.0100 ####[facility] [address] [place], [address] MCHC (RBC) [Mass/Vol] 32.0 g/dL Normal 32-36 [facility] Comment on above: Order Comment: CC.CM P TO DR. Fidencio WASHBURN Performed By: #### L 500.2500, L100.0100 ####[facility] [address] [place], [address] MCV (RBC) [Entitic vol] 95.0 fL High 80-94 [facility] Comment on above: Order Comment: CC.CM P TO DR. Fidencio WASHBURN Performed By: #### L 500.2500, L100.0100 ####[facility] [address] [place], [address] Monocytes/100 WBC (Bld) 9.0 % Normal 0-10 [facility] Comment on above: Order Comment: CC.CM P TO DR. Fidencio WASHBURN Performed By: #### L 500.2500, L100.0100 ####[facility] [address] [place], [address] Neutrophils/100 WBC (Bld) 59.8 % Normal 47-70 [facility] Comment on above: Order Comment: CC.CM P TO DR. Fidencio WASHBURN Performed By: #### L 500.2500, L100.0100 ####[facility] [address] [place], [address] Nucleated RBC (Bld) [#/Vol] 0 10*3/uL Normal 0-5 [facility] Comment on above: Order Comment: CC.CM P TO DR. Fidencio WASHBURN Performed By: #### L 500.2500, L100.0100 ####[facility] [address] [place], [address] Platelet mean volume (Bld) [Entitic vol] 10.3 fL Normal 6.2-12.0 [facility] Comment on above: Order Comment: CC.CM P TO DR. Fidencio WSAHBURN Performed By: #### L 500.2500, L100.0100 ####[facility] [address] [place], [address] Platelets (Bld) [#/Vol] 152 10*3/uL Normal 150-450 [facility] Comment on above: Order Comment: CC.CM P TO DR. Fidencio WASHBURN Performed By: #### L 500.2500, L100.0100 ####[facility] [address] [place], [address] RBC (Bld) [#/Vol] 3.19 10*6/uL Low 4.6-6.2 [facility] Comment on above: Order Comment: CC.CM P TO DR. Fidencio WASHBURN Performed By: #### L 500.2500, L100.0100 ####[facility] [address] [place], [address] RDW SD 45.6 fl High 35.1-43.9 [facility] Comment on above: Order Comment: CC.CM P TO DR. Fidencio WASHBURN Performed By: #### L 500.2500, L100.0100 ####[facility] [address] [place], [address] WBC (Bld) [#/Vol] 5.4 10*3/uL Normal 4.4-11.0 [facility] Comment on above: Order Comment: CC.CM P TO DR. Fidencio WASHBURN Performed By: #### L 500.2500, L100.0100 ####[facility] [address] [place], [address] Iron+Iron Binding Capacityon 12-13-2023 Iron [Mass/Vol] 39 ug/dL Low 65-175 [facility] Comment on above: Order Comment: CC: Cole HERNANDEZ Performed By: #### L 503.6030, L500.2500 ####[facility] [address] [place], [address] IRON SATURATION 14.6 Low 15.0-55.0 [facility] Comment on above: Order Comment: CC: Cole HERNANDEZ Performed By: #### L 503.6030, L500.2500 ####[facility] [address] [place], [address] TIBC 268 ug/dL Normal 250-450 [facility] Comment on above: Order Comment: CC: Cole HERNANDEZ Performed By: #### L 503.6030, L500.2500 ####[facility] [address] [place], [address] 12 Lead EKGon 12-10-2023 12 Lead EKG Normal [facility] Basic Metabolic Profile (BMP )on 12-10-2023 BUN/CRE 42.8 RATIO High 10-20 [facility] Comment on above: Performed By: #### L 300.3900, L100.0100, L501.9985, L500.2500, L300.4310 ####[facility] [address] [place], [address] CA,Total 9.1 mg/dL Normal 8.5-10.1 [facility] Comment on above: Performed By: #### L 300.3900, L100.0100, L501.9985, L500.2500, L300.4310 ####[facility] [address] [place], [address] Chloride [Moles/Vol] 108 mmol/L High 98-107 [facility] Comment on above: Performed By: #### L 300.3900, L100.0100, L501.9985, L500.2500, L300.4310 ####[facility] [address] [place], [address] CO2 [Moles/Vol] 26.0 mmol/L Normal 21.0-32.0 [facility] Comment on above: Performed By: #### L 300.3900, L100.0100, L501.9985, L500.2500, L300.4310 ####[facility] [address] [place], [address] Creatinine [Mass/Vol] 1.87 mg/dL High 0.70-1.30 [facility] Comment on above: Result Comment: The validity of the calculated GFR GFRAA in patients over70 years has not been determined. Clinical correlation isessential. Performed By: #### L 300.3900, L100.0100, L501.9985, L500.2500, L300.4310 ####[facility] [address] [place], [address] ECRCL 29.90 ml/min Normal [facility] Comment on above: Performed By: #### L 300.3900, L100.0100, L501.9985, L500.2500, L300.4310 ####[facility] [address] [place], [address] EST GFR - AA 44 mL/min Low >60 [facility] Comment on above: Result Comment: Afri can Slovenian GFR Calc Performed By: #### L 300.3900, L100.0100, L501.9985, L500.2500, L300.4310 ####[facility] [address] [place], [address] GAP 11 Normal 5-15 [facility] Comment on above: Performed By: #### L 300.3900, L100.0100, L501.9985, L500.2500, L300.4310 ####[facility] [address] [place], [address] GFR/1.73 sq M.predicted among non-blacks MDRD (S/P/Bld) [Vol rate/Area] 37 mL/min/{1.73_m2} Low >60 [facility] Comment on above: Result Comment: Non- GFR Calc Performed By: #### L 300.3900, L100.0100, L501.9985, L500.2500, L300.4310 ####[facility] [address] [place], [address] Glucose [Mass/Vol] 147 mg/dL High 74-106 [facility] Comment on above: Result Comment: Fast ing Glucose result greater than or equal to 126 mg/dLsuggests DIABETES MELLITUS per A.D.A. criteria. Performed By: #### L 300.3900, L100.0100, L501.9985, L500.2500, L300.4310 ####[facility] [address] [place], [address] Potassium [Moles/Vol] 4.8 mmol/L Normal 3.5-5.1 [facility] Comment on above: Performed By: #### L 300.3900, L100.0100, L501.9985, L500.2500, L300.4310 ####[facility] [address] [place], [address] Sodium [Moles/Vol] 145 mmol/L Normal 136-145 [facility] Comment on above: Performed By: #### L 300.3900, L100.0100, L501.9985, L500.2500, L300.4310 ####[facility] [address], [address] Urea nitrogen [Mass/Vol] 80 mg/dL High 7-18 [facility] Comment on above: Performed By: #### L 300.3900, L100.0100, L501.9985, L500.2500, L300.4310 ####[facility] [address] [place], [address] Bedside Glucoseon 12-09-2023 FINGERSTICK GLU 113 mg/dL High 74-106 [facility] Comment on above: Result Comment: MYKE GEMENT OF PATIENT CARE PER NURSING PROTOCOL Performed By: #### L 501.080 ####[facility] [address] [place], [address] FINGERSTICK GLU 142 mg/dL High 74-106 [facility] Comment on above: Result Comment: MYKE GEMENT OF PATIENT CARE PER NURSING PROTOCOL Performed By: #### L 501.080 ####[facility] [address] [place], [address] FINGERSTICK GLU 136 mg/dL High 74-106 [facility] Comment on above: Result Comment: MYKE GEMENT OF PATIENT CARE PER NURSING PROTOCOL Performed By: #### L 501.080 ####[facility] [address] [place], [address] CBC W/Diff, Automatedon 11-12 0 Absolute Lymph 0.72 X10 3/uL Low 0.83-4.51 [facility] Comment on above: Performed By: #### L 300.3900, L100.0100, L501.9985, L500.2500, L300.4310 ####[facility] [address] [place], [address] Absolute Neut 2.9 X10 3/uL Normal 2.0-7.7 [facility] Comment on above: Performed By: #### L 300.3900, L100.0100, L501.9985, L500.2500, L300.4310 ####[facility] [address] [place], [address] Basophils/100 WBC (Bld) 0.7 % Normal 0-1 [facility] Comment on above: Performed By: #### L 300.3900, L100.0100, L501.9985, L500.2500, L300.4310 ####[facility] [address] [place], [address] Eosinophils/100 WBC (Bld) 6.5 % High 0-5 [facility] Comment on above: Performed By: #### L 300.3900, L100.0100, L501.9985, L500.2500, L300.4310 ####[facility] [address] [place], [address] Erythrocyte distribution width (RBC) [Ratio] 14.4 % Normal 11.6-14.6 [facility] Comment on above: Performed By: #### L 300.3900, L100.0100, L501.9985, L500.2500, L300.4310 ####[facility] [address] [place], [address] Hematocrit (Bld) [Volume fraction] 28.8 % Low 40-54 [facility] Comment on above: Performed By: #### L 300.3900, L100.0100, L501.9985, L500.2500, L300.4310 ####[facility] [address] [place], [address] Hemoglobin (Bld) [Mass/Vol] 9.4 g/dL Low 13.0-16.5 [facility] Comment on above: Performed By: #### L 300.3900, L100.0100, L501.9985, L500.2500, L300.4310 ####[facility] [address] [place], [address] IG% 0.500 Normal 0.0-0.9 [facility] Comment on above: Result Comment: IG% - Immature Granulocytes (promyelocytes, myelocytes andmetamyelocytes) > 1% indicates that a LEFT SHIFT is Present. Performed By: #### L 300.3900, L100.0100, L501.9985, L500.2500, L300.4310 ####[facility] [address] [place], [address] Lymphocytes/100 WBC (Bld) 16.7 % Low 19-41 [facility] Comment on above: Performed By: #### L 300.3900, L100.0100, L501.9985, L500.2500, L300.4310 ####[facility] [address] [place], [address] MCH (RBC) [Entitic mass] 30.7 pg Normal 27.0-32.0 [facility] Comment on above: Performed By: #### L 300.3900, L100.0100, L501.9985, L500.2500, L300.4310 ####[facility] [address] [place], [address] MCHC (RBC) [Mass/Vol] 32.6 g/dL Normal 32-36 [facility] Comment on above: Performed By: #### L 300.3900, L100.0100, L501.9985, L500.2500, L300.4310 ####[facility] [address] [place], [address] MCV (RBC) [Entitic vol] 94.1 fL High 80-94 [facility] Comment on above: Performed By: #### L 300.3900, L100.0100, L501.9985, L500.2500, L300.4310 ####[facility] [address] [place], [address] Monocytes/100 WBC (Bld) 7.2 % Normal 0-10 [facility] Comment on above: Performed By: #### L 300.3900, L100.0100, L501.9985, L500.2500, L300.4310 ####[facility] [address] [place], [address] Neutrophils/100 WBC (Bld) 68.4 % Normal 47-70 [facility] Comment on above: Performed By: #### L 300.3900, L100.0100, L501.9985, L500.2500, L300.4310 ####[facility] [address] [place], [address] Nucleated RBC (Bld) [#/Vol] 0 10*3/uL Normal 0-5 [facility] Comment on above: Performed By: #### L 300.3900, L100.0100, L501.9985, L500.2500, L300.4310 ####[facility] [address] [place], [address] Platelet mean volume (Bld) [Entitic vol] 11.3 fL Normal 6.2-12.0 [facility] Comment on above: Performed By: #### L 300.3900, L100.0100, L501.9985, L500.2500, L300.4310 ####[facility] [address] [place], [address] Platelets (Bld) [#/Vol] 89 10*3/uL Low 150-450 [facility] Comment on above: Performed By: #### L 300.3900, L100.0100, L501.9985, L500.2500, L300.4310 ####[facility] [address] [place], [address] RBC (Bld) [#/Vol] 3.06 10*6/uL Low 4.6-6.2 [facility] Comment on above: Performed By: #### L 300.3900, L100.0100, L501.9985, L500.2500, L300.4310 ####[facility] [address] [place], [address] RDW SD 48.5 fl High 35.1-43.9 [facility] Comment on above: Performed By: #### L 300.3900, L100.0100, L501.9985, L500.2500, L300.4310 ####[facility] [address] [place], [address] WBC (Bld) [#/Vol] 4.3 10*3/uL Low 4.4-11.0 [facility] Comment on above: Performed By: #### L 300.3900, L100.0100, L501.9985, L500.2500, L300.4310 ####[facility] [address] [place], [address] Colonoscopy Reporton 024 Colonoscopy Report Normal [facility] Discharge Instructionon 11-12 Discharge Instruction Normal [facility] Hemoglobin A1con 12-10-2023 HbA1c (Bld) [Mass fraction] 5.9 % High 3.8-5.6 [facility] Comment on above: Result Comment: Norm al < 5.7 % Prediabetic 5.7 - 6.4 % Diabetic >or= 6.5 % Please note range changes. Performed By: #### L 300.3900, L100.0100, L501.9985, L500.2500, L300.4310 ####[facility] [address] [place], [address] MR/POSTOP.ANEon 12-10-2023 MR/POSTOP.ANE Normal [facility] MR/NFUFRPIL0he 12-10-2023 MR/POSTOPAN2 Normal [facility] MR/POSTOPAN2 Normal [facility] Partial Thromboplast Timeon 12-10-2023 aPTT Coag (Bld) [Time] 32.0 s Normal 24.1-36.2 [facility] Comment on above: Performed By: #### L 300.3900, L100.0100, L501.9985, L500.2500, L300.4310 ####[facility] [address] [place], [address] Prothrombin Time w/INRon INR Coag (PPP) [Relative time] 1.2 {INR} Normal [facility] Comment on above: Performed By: #### L 300.3900, L100.0100, L501.9985, L500.2500, L300.4310 ####[facility] [address] [place], [address] PT Coag (PPP) [Time] 15.5 s High 11.7-14.9 [facility] Comment on above: Performed By: #### L 300.3900, L100.0100, L501.9985, L500.2500, L300.4310 ####[facility] [address] [place], [address] Surgery Specimen Level Riky 12-10-2023 Surgery Specimen Level IV Normal [facility] Comment on above: Performed By: #### P SUIV ####[facility] [address] [place], [address] Basic Metabolic Profile (BMP )on 12-09-2023 BUN/CRE 48.6 RATIO High 10-20 [facility] Comment on above: Performed By: #### L 500.2500, L100.0100 ####[facility] [address] [place], [address] CA,Total 9.3 mg/dL Normal 8.5-10.1 [facility] Comment on above: Performed By: #### L 500.2500, L100.0100 ####[facility] [address] [place], [address] Chloride [Moles/Vol] 107 mmol/L Normal 98-107 [facility] Comment on above: Performed By: #### L 500.2500, L100.0100 ####[facility] [address] [place], [address] CO2 [Moles/Vol] 26.0 mmol/L Normal 21.0-32.0 [facility] Comment on above: Performed By: #### L 500.2500, L100.0100 ####[facility] [address] [place], [address] Creatinine [Mass/Vol] 2.20 mg/dL High 0.70-1.30 [facility] Comment on above: Result Comment: The validity of the calculated GFR GFRAA in patients over70 years has not been determined. Clinical correlation isessential. Performed By: #### L 500.2500, L100.0100 ####[facility] [address] [place], [address] ECRCL 25.45 ml/min Normal [facility] Comment on above: Performed By: #### L 500.2500, L100.0100 ####[facility] [address] [place], [address] EST GFR - AA 37 mL/min Low >60 [facility] Comment on above: Result Comment: Afri can Slovenian GFR Calc Performed By: #### L 500.2500, L100.0100 ####[facility] [address] [place], [address] GAP 7 Normal 5-15 [facility] Comment on above: Performed By: #### L 500.2500, L100.0100 ####[facility] [address] [place], [address] GFR/1.73 sq M.predicted among non-blacks MDRD (S/P/Bld) [Vol rate/Area] 30 mL/min/{1.73_m2} Low >60 [facility] Comment on above: Result Comment: Non- GFR Calc Performed By: #### L 500.2500, L100.0100 ####[facility] [address] [place], [address] Glucose [Mass/Vol] 191 mg/dL High 74-106 [facility] Comment on above: Result Comment: Fast ing Glucose result greater than or equal to 126 mg/dLsuggests DIABETES MELLITUS per A.D.A. criteria. Performed By: #### L 500.2500, L100.0100 ####[facility] [address] [place], [address] Potassium [Moles/Vol] 4.9 mmol/L Normal 3.5-5.1 [facility] Comment on above: Performed By: #### L 500.2500, L100.0100 ####[facility] [address] [place], [address] Sodium [Moles/Vol] 140 mmol/L Normal 136-145 [facility] Comment on above: Performed By: #### L 500.2500, L100.0100 ####[facility] [address] [place], [address] Urea nitrogen [Mass/Vol] 107 mg/dL Invalid Interpretation Code 7-18 [facility] Comment on above: Result Comment: Crit ical Result(s) Called at: 06:23:13 12/09/2023 by:Didier Kitchen. Results read back by same. Performed By: #### L 500.2500, L100.0100 ####[facility] [address] [place], [address] Bedside Glucoseon 12-09-2023 FINGERSTICK GLU 138 mg/dL High 74-106 [facility] Comment on above: Result Comment: MYKE SAGE OF PATIENT CARE PER NURSING PROTOCOL Performed By: #### L 501.080 ####[facility] [address] [place], [address] FINGERSTICK GLU 164 mg/dL High 74-106 [facility] Comment on above: Result Comment: MYKE GEMENT OF PATIENT CARE PER NURSING PROTOCOL Performed By: #### L 501.080 ####[facility] [address] [place], [address] FINGERSTICK GLU 140 mg/dL High 74-106 [facility] Comment on above: Result Comment: MYKE GEMENT OF PATIENT CARE PER NURSING PROTOCOL Performed By: #### L 501.080 ####[facility] [address] [place], [address] FINGERSTICK GLU 161 mg/dL High 74-106 [facility] Comment on above: Result Comment: MYKE GEMENT OF PATIENT CARE PER NURSING PROTOCOL Performed By: #### L 501.080 ####[facility] [address] [place], [address] CBC W/Diff, Automatedon - Absolute Lymph 1.00 X10 3/uL Normal 0.83-4.51 [facility] Comment on above: Performed By: #### L 500.2500, L100.0100 ####[facility] [address] [place], [address] Absolute Neut 4.5 X10 3/uL Normal 2.0-7.7 [facility] Comment on above: Performed By: #### L 500.2500, L100.0100 ####[facility] [address] [place], [address] Basophils/100 WBC (Bld) 0.5 % Normal 0-1 [facility] Comment on above: Performed By: #### L 500.2500, L100.0100 ####[facility] [address] [place], [address] Eosinophils/100 WBC (Bld) 4.6 % Normal 0-5 [facility] Comment on above: Performed By: #### L 500.2500, L100.0100 ####[facility] [address] [place], [address] Erythrocyte distribution width (RBC) [Ratio] 14.2 % Normal 11.6-14.6 [facility] Comment on above: Performed By: #### L 500.2500, L100.0100 ####[facility] [address] [place], [address] Hematocrit (Bld) [Volume fraction] 29.0 % Low 40-54 [facility] Comment on above: Performed By: #### L 500.2500, L100.0100 ####[facility] [address] [place], [address] Hemoglobin (Bld) [Mass/Vol] 9.3 g/dL Low 13.0-16.5 [facility] Comment on above: Performed By: #### L 500.2500, L100.0100 ####[facility] [address] [place], [address] IG% 0.300 Normal 0.0-0.9 [facility] Comment on above: Result Comment: IG% - Immature Granulocytes (promyelocytes, myelocytes andmetamyelocytes) > 1% indicates that a LEFT SHIFT is Present. Performed By: #### L 500.2500, L100.0100 ####[facility] [address] [place], [address] Lymphocytes/100 WBC (Bld) 15.9 % Low 19-41 [facility] Comment on above: Performed By: #### L 500.2500, L100.0100 ####[facility] [address] [place], [address] MCH (RBC) [Entitic mass] 30.2 pg Normal 27.0-32.0 [facility] Comment on above: Performed By: #### L 500.2500, L100.0100 ####[facility] [address] [place], [address] MCHC (RBC) [Mass/Vol] 32.1 g/dL Normal 32-36 [facility] Comment on above: Performed By: #### L 500.2500, L100.0100 ####[facility] [address] [place], [address] MCV (RBC) [Entitic vol] 94.2 fL High 80-94 [facility] Comment on above: Performed By: #### L 500.2500, L100.0100 ####[facility] [address] [place], [address] Monocytes/100 WBC (Bld) 6.7 % Normal 0-10 [facility] Comment on above: Performed By: #### L 500.2500, L100.0100 ####[facility] [address] [place], [address] Neutrophils/100 WBC (Bld) 72.0 % High 47-70 [facility] Comment on above: Performed By: #### L 500.2500, L100.0100 ####[facility] [address] [place], [address] Nucleated RBC (Bld) [#/Vol] 0 10*3/uL Normal 0-5 [facility] Comment on above: Performed By: #### L 500.2500, L100.0100 ####[facility] [address] [place], [address] Platelet mean volume (Bld) [Entitic vol] 11.2 fL Normal 6.2-12.0 [facility] Comment on above: Performed By: #### L 500.2500, L100.0100 ####[facility] [address] [place], [address] Platelets (Bld) [#/Vol] 88 10*3/uL Low 150-450 [facility] Comment on above: Performed By: #### L 500.2500, L100.0100 ####[facility] [address] [place], [address] RBC (Bld) [#/Vol] 3.08 10*6/uL Low 4.6-6.2 [facility] Comment on above: Performed By: #### L 500.2500, L100.0100 ####[facility] [address] [place], [address] RDW SD 47.8 fl High 35.1-43.9 [facility] Comment on above: Performed By: #### L 500.2500, L100.0100 ####[facility] [address] [place], [address] WBC (Bld) [#/Vol] 6.3 10*3/uL Normal 4.4-11.0 [facility] Comment on above: Performed By: #### L 500.2500, L100.0100 ####[facility] [address] [place], [address] MR/CON.PCM.GIon 12-09-2023 MR/CON.PCM.GI Normal [facility] Basic Metabolic Profile (BMP )on 12-08-2023 BUN/CRE 43.2 RATIO High 10-20 [facility] Comment on above: Performed By: #### L 500.2500, L501.5200, L100.0100, L501.2300 ####[facility] [address] [place], [address] CA,Total 8.9 mg/dL Normal 8.5-10.1 [facility] Comment on above: Performed By: #### L 500.2500, L501.5200, L100.0100, L501.2300 ####[facility] [address] [place], [address] Chloride [Moles/Vol] 107 mmol/L Normal 98-107 [facility] Comment on above: Performed By: #### L 500.2500, L501.5200, L100.0100, L501.2300 ####[facility] [address] [place], [address] CO2 [Moles/Vol] 27.0 mmol/L Normal 21.0-32.0 [facility] Comment on above: Performed By: #### L 500.2500, L501.5200, L100.0100, L501.2300 ####[facility] [address] [place], [address] Creatinine [Mass/Vol] 2.29 mg/dL High 0.70-1.30 [facility] Comment on above: Result Comment: The validity of the calculated GFR GFRAA in patients over70 years has not been determined. Clinical correlation isessential. Performed By: #### L 500.2500, L501.5200, L100.0100, L501.2300 ####[facility] [address] [place], [address] ECRCL 24.45 ml/min Normal [facility] Comment on above: Performed By: #### L 500.2500, L501.5200, L100.0100, L501.2300 ####[facility] [address] [place], [address] EST GFR - AA 35 mL/min Low >60 [facility] Comment on above: Result Comment: Afri can Slovenian GFR Calc Performed By: #### L 500.2500, L501.5200, L100.0100, L501.2300 ####[facility] [address] [place], [address] GAP 5 Normal 5-15 [facility] Comment on above: Performed By: #### L 500.2500, L501.5200, L100.0100, L501.2300 ####[facility] [address] [place], [address] GFR/1.73 sq M.predicted among non-blacks MDRD (S/P/Bld) [Vol rate/Area] 29 mL/min/{1.73_m2} Low >60 [facility] Comment on above: Result Comment: Non- GFR Calc Performed By: #### L 500.2500, L501.5200, L100.0100, L501.2300 ####[facility] [address] [place], [address] Glucose [Mass/Vol] 142 mg/dL High 74-106 [facility] Comment on above: Result Comment: Fast ing Glucose result greater than or equal to 126 mg/dLsuggests DIABETES MELLITUS per A.D.A. criteria. Performed By: #### L 500.2500, L501.5200, L100.0100, L501.2300 ####[facility] [address] [place], [address] Potassium [Moles/Vol] 4.8 mmol/L Normal 3.5-5.1 [facility] Comment on above: Performed By: #### L 500.2500, L501.5200, L100.0100, L501.2300 ####[facility] [address] [place], [address] Sodium [Moles/Vol] 139 mmol/L Normal 136-145 [facility] Comment on above: Performed By: #### L 500.2500, L501.5200, L100.0100, L501.2300 ####[facility] [address] [place], [address] Urea nitrogen [Mass/Vol] 99 mg/dL High 7-18 [facility] Comment on above: Performed By: #### L 500.2500, L501.5200, L100.0100, L501.2300 ####[facility] [address] [place], [address] Bedside Glucoseon 12-08-2023 FINGERSTICK GLU 182 mg/dL High 74-106 [facility] Comment on above: Result Comment: MYKE GEMENT OF PATIENT CARE PER NURSING PROTOCOL Performed By: #### L 501.080 ####[facility] [address] [place], [address] FINGERSTICK GLU 176 mg/dL High 74-106 [facility] Comment on above: Result Comment: MYKE GEMENT OF PATIENT CARE PER NURSING PROTOCOL Performed By: #### L 501.080 ####[facility] [address] [place], [address] FINGERSTICK GLU 220 mg/dL High -106 [facility] Comment on above: Result Comment: MYKE GEMENT OF PATIENT CARE PER NURSING PROTOCOL Performed By: #### L 501.080 ####[facility] [address] [place], [address] FINGERSTICK GLU 131 mg/dL High -106 [facility] Comment on above: Result Comment: MYKE GEMENT OF PATIENT CARE PER NURSING PROTOCOL Performed By: #### L 501.080 ####[facility] [address] [place], [address] CBC W/Diff, Automatedon 11-11 TEAR DROP RARE Normal [facility] Comment on above: Performed By: #### L 500.2500, L501.5200, L100.0100, L501.2300 ####[facility] [address] [place], [address] HYPOCHROMASIA 1+ Normal [facility] Comment on above: Performed By: #### L 500.2500, L501.5200, L100.0100, L501.2300 ####[facility] [address] [place], [address] MICROCYTIC 1+ Normal [facility] Comment on above: Performed By: #### L 500.2500, L501.5200, L100.0100, L501.2300 ####[facility] [address] [place], [address] OVALOCYTE 2+ Normal [facility] Comment on above: Performed By: #### L 500.2500, L501.5200, L100.0100, L501.2300 ####[facility] [address] [place], [address] POLYCHROMASIA 1+ Normal [facility] Comment on above: Performed By: #### L 500.2500, L501.5200, L100.0100, L501.2300 ####[facility] [address] [place], [address] Anisocytosis Ql (Bld) 2+ Normal [facility] Comment on above: Performed By: #### L 500.2500, L501.5200, L100.0100, L501.2300 ####[facility] [address] [place], [address] PLT EST MOD DEC Normal ADEQ [facility] Comment on above: Performed By: #### L 500.2500, L501.5200, L100.0100, L501.2300 ####[facility] [address] [place], [address] SMEAR COMMENT SCANNED Normal [facility] Comment on above: Performed By: #### L 500.2500, L501.5200, L100.0100, L501.2300 ####[facility] [address] [place], [address] Magnesiumon 12-08-2023 Magnesium [Mass/Vol] 2.1 mg/dL Normal 1.6-2.6 [facility] Comment on above: Performed By: #### L 500.2500, L501.5200, L100.0100, L501.2300 ####[facility] [address] [place], [address] Phosphoruson 12-08-2023 Phosphate [Mass/Vol] 3.5 mg/dL Normal 2.5-4.9 [facility] Comment on above: Performed By: #### L 500.2500, L501.5200, L100.0100, L501.2300 ####[facility] [address] [place], [address] Stool Occult Blood iFOBon STOB Positive Normal [facility] Comment on above: Performed By: #### M 100.7900 ####[facility] [address] [place], [address] Bedside Glucoseon 12-07-2023 FINGERSTICK GLU 202 mg/dL High [address] [place] [address] Comment on above: Result Comment: MYKE GEMENT OF PATIENT CARE PER NURSING PROTOCOL Performed By: #### L 501.080 ####[facility] [address] [place], [address] FINGERSTICK GLU 206 mg/dL High [address] [place] [address] Comment on above: Result Comment: MYKE GEMENT OF PATIENT CARE PER NURSING PROTOCOL Performed By: #### L 501.080 ####[facility] [address] [place], [address] FINGERSTICK GLU 200 mg/dL High [address] [place] [address] Comment on above: Result Comment: MYKE GEMENT OF PATIENT CARE PER NURSING PROTOCOL Performed By: #### L 501.080 ####[facility] [address] [place], [address] FINGERSTICK GLU 136 mg/dL High [address] [place] [address] Comment on above: Result Comment: MYKE GEMENT OF PATIENT CARE PER NURSING PROTOCOL Performed By: #### L 501.080 ####[facility] [address] [place], [address] CBC W/Diff, Automatedon 09-2 Absolute Lymph 0.80 X10 3/uL Low 0.83-4.51 [facility] Comment on above: Performed By: #### L 100.0100, L503.6550, L500.4050, L503.6030, L501.5200 ####[facility] [address] [place], [address] Absolute Neut 5.6 X10 3/uL Normal 2.0-7.7 [facility] Comment on above: Performed By: #### L 100.0100, L503.6550, L500.4050, L503.6030, L501.5200 ####[facility] [address] [place], [address] Basophils/100 WBC (Bld) 0.1 % Normal 0-1 [facility] Comment on above: Performed By: #### L 100.0100, L503.6550, L500.4050, L503.6030, L501.5200 ####[facility] [address] [place], [address] Eosinophils/100 WBC (Bld) 2.7 % Normal 0-5 [facility] Comment on above: Performed By: #### L 100.0100, L503.6550, L500.4050, L503.6030, L501.5200 ####[facility] [address] [place], [address] Erythrocyte distribution width (RBC) [Ratio] 14.8 % High 11.6-14.6 [facility] Comment on above: Performed By: #### L 100.0100, L503.6550, L500.4050, L503.6030, L501.5200 ####[facility] [address] [place], [address] Hematocrit (Bld) [Volume fraction] 25.2 % Low 40-54 [facility] Comment on above: Performed By: #### L 100.0100, L503.6550, L500.4050, L503.6030, L501.5200 ####[facility] [address], [address] Hemoglobin (Bld) [Mass/Vol] 8.0 g/dL Low 13.0-16.5 [facility] Comment on above: Performed By: #### L 100.0100, L503.6550, L500.4050, L503.6030, L501.5200 ####[facility] [address] [place], [address] IG% 0.400 Normal 0.0-0.9 [facility] Comment on above: Result Comment: IG% - Immature Granulocytes (promyelocytes, myelocytes andmetamyelocytes) > 1% indicates that a LEFT SHIFT is Present. Performed By: #### L 100.0100, L503.6550, L500.4050, L503.6030, L501.5200 ####[facility] [address], [address] Lymphocytes/100 WBC (Bld) 11.3 % Low 19-41 [facility] Comment on above: Performed By: #### L 100.0100, L503.6550, L500.4050, L503.6030, L501.5200 ####[facility] [address] [place], [address] MCH (RBC) [Entitic mass] 30.4 pg Normal 27.0-32.0 [facility] Comment on above: Performed By: #### L 100.0100, L503.6550, L500.4050, L503.6030, L501.5200 ####[facility] [address] [place], [address] MCHC (RBC) [Mass/Vol] 31.7 g/dL Low 32-36 [facility] Comment on above: Performed By: #### L 100.0100, L503.6550, L500.4050, L503.6030, L501.5200 ####[facility] [address] [place], [address] MCV (RBC) [Entitic vol] 95.8 fL High 80-94 [facility] Comment on above: Performed By: #### L 100.0100, L503.6550, L500.4050, L503.6030, L501.5200 ####[facility] [address] [place], [address] Monocytes/100 WBC (Bld) 6.1 % Normal 0-10 [facility] Comment on above: Performed By: #### L 100.0100, L503.6550, L500.4050, L503.6030, L501.5200 ####[facility] [address] [place], [address] Neutrophils/100 WBC (Bld) 79.4 % High 47-70 [facility] Comment on above: Performed By: #### L 100.0100, L503.6550, L500.4050, L503.6030, L501.5200 ####[facility] [address] [place], [address] Nucleated RBC (Bld) [#/Vol] 0 10*3/uL Normal 0-5 [facility] Comment on above: Performed By: #### L 100.0100, L503.6550, L500.4050, L503.6030, L501.5200 ####[facility] [address] [place], [address] Platelet mean volume (Bld) [Entitic vol] 11.5 fL Normal 6.2-12.0 [facility] Comment on above: Performed By: #### L 100.0100, L503.6550, L500.4050, L503.6030, L501.5200 ####[facility] [address] [place], [address] Platelets (Bld) [#/Vol] 82 10*3/uL Low 150-450 [facility] Comment on above: Performed By: #### L 100.0100, L503.6550, L500.4050, L503.6030, L501.5200 ####[facility] [address] [place], [address] RBC (Bld) [#/Vol] 2.63 10*6/uL Low 4.6-6.2 [facility] Comment on above: Performed By: #### L 100.0100, L503.6550, L500.4050, L503.6030, L501.5200 ####[facility] [address] [place], [address] RDW SD 52.0 fl High 35.1-43.9 [facility] Comment on above: Performed By: #### L 100.0100, L503.6550, L500.4050, L503.6030, L501.5200 ####[facility] [address] [place], [address] WBC (Bld) [#/Vol] 7.1 10*3/uL Normal 4.4-11.0 [facility] Comment on above: Performed By: #### L 100.0100, L503.6550, L500.4050, L503.6030, L501.5200 ####[facility] [address] [place], [address] Comprehensive Metabolic Prof ilon 12-07-2023 Albumin [Mass/Vol] 2.9 g/dL Low 3.2-5.0 [facility] Comment on above: Order Comment: Comme nts: May add to ED labs Performed By: #### L 100.0100, L503.6550, L500.4050, L503.6030, L501.5200 ####[facility] [address] [place], [address] Albumin/Globulin [Mass ratio] 0.8 {ratio} Low 0.9-2.4 [facility] Comment on above: Order Comment: Comme nts: May add to ED labs Performed By: #### L 100.0100, L503.6550, L500.4050, L503.6030, L501.5200 ####[facility] [address] [place], [address] ALK P 60 U/L Normal 45-117 [facility] Comment on above: Order Comment: Comme nts: May add to ED labs Performed By: #### L 100.0100, L503.6550, L500.4050, L503.6030, L501.5200 ####[facility] [address] [place], [address] ALT [Catalytic activity/Vol] 23 U/L Normal 16-61 [facility] Comment on above: Order Comment: Comme nts: May add to ED labs Performed By: #### L 100.0100, L503.6550, L500.4050, L503.6030, L501.5200 ####[facility] [address] [place], [address] AST [Catalytic activity/Vol] 35 U/L Normal 15-37 [facility] Comment on above: Order Comment: Comme nts: May add to ED labs Performed By: #### L 100.0100, L503.6550, L500.4050, L503.6030, L501.5200 ####[facility] [address] [place], [address] Bilirubin [Mass/Vol] 1.60 mg/dL High 0.20-1.00 [facility] Comment on above: Order Comment: Comme nts: May add to ED labs Result Comment: For patients on eltrombopag therapy, use of Dimension [place] TBIL is not recommended. Performed By: #### L 100.0100, L503.6550, L500.4050, L503.6030, L501.5200 ####[facility] [address] [place], [address] BUN/CRE 35.5 RATIO High 10-20 [facility] Comment on above: Order Comment: Comme nts: May add to ED labs Performed By: #### L 100.0100, L503.6550, L500.4050, L503.6030, L501.5200 ####[facility] [address] [place], [address] CA,Total 8.7 mg/dL Normal 8.5-10.1 [facility] Comment on above: Order Comment: Comme nts: May add to ED labs Performed By: #### L 100.0100, L503.6550, L500.4050, L503.6030, L501.5200 ####[facility] [address] [place], [address] Chloride [Moles/Vol] 107 mmol/L Normal 98-107 [facility] Comment on above: Order Comment: Comme nts: May add to ED labs Performed By: #### L 100.0100, L503.6550, L500.4050, L503.6030, L501.5200 ####[facility] [address] [place], [address] CO2 [Moles/Vol] 29.0 mmol/L Normal 21.0-32.0 [facility] Comment on above: Order Comment: Comme nts: May add to ED labs Performed By: #### L 100.0100, L503.6550, L500.4050, L503.6030, L501.5200 ####[facility] [address] [place], [address] Creatinine [Mass/Vol] 2.73 mg/dL High 0.70-1.30 [facility] Comment on above: Order Comment: Comme nts: May add to ED labs Result Comment: The validity of the calculated GFR GFRAA in patients over70 years has not been determined. Clinical correlation isessential. Performed By: #### L 100.0100, L503.6550, L500.4050, L503.6030, L501.5200 ####[facility] [address] [place], [address] ECRCL 20.51 ml/min Normal [facility] Comment on above: Order Comment: Commbrisa nts: May add to ED labs Performed By: #### L 100.0100, L503.6550, L500.4050, L503.6030, L501.5200 ####[facility] [address] [place], [address] EST GFR - AA 29 mL/min Low >60 [facility] Comment on above: Order Comment: Comme nts: May add to ED labs Result Comment: Afri can Slovenian GFR Calc Performed By: #### L 100.0100, L503.6550, L500.4050, L503.6030, L501.5200 ####[facility] [address] [place], [address] GAP 6 Normal 5-15 [facility] Comment on above: Order Comment: Comme nts: May add to ED labs Performed By: #### L 100.0100, L503.6550, L500.4050, L503.6030, L501.5200 ####[facility] [address] [place], [address] GFR/1.73 sq M.predicted among non-blacks MDRD (S/P/Bld) [Vol rate/Area] 24 mL/min/{1.73_m2} Low >60 [facility] Comment on above: Order Comment: Comme nts: May add to ED labs Result Comment: Non- GFR Calc Performed By: #### L 100.0100, L503.6550, L500.4050, L503.6030, L501.5200 ####[facility] [address] [place], [address] Globulin (S) [Mass/Vol] 3.5 g/dL Normal 2.2-4.2 [facility] Comment on above: Order Comment: Commbrisa nts: May add to ED labs Performed By: #### L 100.0100, L503.6550, L500.4050, L503.6030, L501.5200 ####[facility] [address] [place], [address] Glucose [Mass/Vol] 142 mg/dL High 74-106 [facility] Comment on above: Order Comment: Comme nts: May add to ED labs Result Comment: Fast ing Glucose result greater than or equal to 126 mg/dLsuggests DIABETES MELLITUS per A.D.A. criteria. Performed By: #### L 100.0100, L503.6550, L500.4050, L503.6030, L501.5200 ####[facility] [address] [place], [address] Potassium [Moles/Vol] 4.4 mmol/L Normal 3.5-5.1 [facility] Comment on above: Order Comment: Commbrisa nts: May add to ED labs Performed By: #### L 100.0100, L503.6550, L500.4050, L503.6030, L501.5200 ####[facility] [address] [place], [address] Sodium [Moles/Vol] 142 mmol/L Normal 136-145 [facility] Comment on above: Order Comment: Commbrisa nts: May add to ED labs Performed By: #### L 100.0100, L503.6550, L500.4050, L503.6030, L501.5200 ####[facility] [address] [place], [address] T PROT 6.4 g/dL Normal 6.4-8.2 [facility] Comment on above: Order Comment: Comme nts: May add to ED labs Performed By: #### L 100.0100, L503.6550, L500.4050, L503.6030, L501.5200 ####[facility] [address] [place], [address] Urea nitrogen [Mass/Vol] 97 mg/dL High 7-18 [facility] Comment on above: Order Comment: Comme nts: May add to ED labs Performed By: #### L 100.0100, L503.6550, L500.4050, L503.6030, L501.5200 ####[facility] [address] [place], [address] Consultation - Cardiologyon 12-07-2023 Consultation - Cardiology Normal [facility] Consultation - Nephrologyon 12-07-2023 Consultation - Nephrology Normal [facility] Echo Limited w/Contraston Echo Limited w/Contrast Normal [facility] Ferritinon 12-07-2023 Ferritin [Mass/Vol] 37 ng/mL Normal 26-388 [facility] Comment on above: Order Comment: Comme nts: May add to ED labs Performed By: #### L 100.0100, L503.6550, L500.4050, L503.6030, L501.5200 ####[facility] [address] [place], [address] Iron+Iron Binding Capacityon 12-07-2023 Iron [Mass/Vol] 208 ug/dL High 65-175 [facility] Comment on above: Order Comment: Comme nts: May add to ED labs Performed By: #### L 100.0100, L503.6550, L500.4050, L503.6030, L501.5200 ####[facility] [address] [place], [address] IRON SATURATION 78.8 High 15.0-55.0 [facility] Comment on above: Order Comment: Comme nts: May add to ED labs Performed By: #### L 100.0100, L503.6550, L500.4050, L503.6030, L501.5200 ####[facility] [address] [place], [address] TIBC 264 ug/dL Normal 250-450 [facility] Comment on above: Order Comment: Comme nts: May add to ED labs Performed By: #### L 100.0100, L503.6550, L500.4050, L503.6030, L501.5200 ####[facility] [address] [place], [address] Magnesiumon 12-07-2023 Magnesium [Mass/Vol] 1.4 mg/dL Low 1.6-2.6 [facility] Comment on above: Order Comment: Comme nts: May add to ED labs Performed By: #### L 100.0100, L503.6550, L500.4050, L503.6030, L501.5200 ####[facility] [address] [place], [address] BNP,B-Type NATRIURETIC PEPTI Nico 12-06-2023 Natriuretic peptide B (Bld) [Mass/Vol] 149.9 pg/mL High 0-100 [facility] Comment on above: Performed By: #### L 500.4050, L100.0100, L501.5425, L503.6620 ####[facility] [address] [place], [address] BRCon 12-06-2023 RC Normal [facility] Comment on above: Result Comment: [id number] ON RC TRANSFUSED 12/06/23 1648 Performed By: #### B TS, BR ####[facility] [address] [place], [address] Result Comment: [id number] AN RC TRANSFUSED 12/08/23 [id number] AN RC TRANSFUSED 12/09/23 0038 Performed By: #### B RC ####[facility] [address] [place], [address] Bedside Glucoseon 12-06-2023 FINGERSTICK GLU 271 mg/dL High 74-106 [facility] Comment on above: Result Comment: MYKE GEMENT OF PATIENT CARE PER NURSING PROTOCOL Performed By: #### L 501.080 ####[facility] [address] [place], [address] FINGERSTICK GLU 267 mg/dL High 74-106 [facility] Comment on above: Result Comment: MYKE GEMENT OF PATIENT CARE PER NURSING PROTOCOL Performed By: #### L 501.080 ####[facility] [address] [place], [address] CBC W/Diff, Automatedon 11-11 Absolute Lymph 0.62 X10 3/uL Low 0.83-4.51 [facility] Comment on above: Performed By: #### L 500.4050, L100.0100, L501.5425, L503.6620 ####[facility] [address] [place], [address] Absolute Neut 4.3 X10 3/uL Normal 2.0-7.7 [facility] Comment on above: Performed By: #### L 500.4050, L100.0100, L501.5425, L503.6620 ####[facility] [address] [place], [address] Basophils/100 WBC (Bld) 0.2 % Normal 0-1 [facility] Comment on above: Performed By: #### L 500.4050, L100.0100, L501.5425, L503.6620 ####[facility] [address] [place], [address] Eosinophils/100 WBC (Bld) 3.3 % Normal 0-5 [facility] Comment on above: Performed By: #### L 500.4050, L100.0100, L501.5425, L503.6620 ####[facility] [address] [place], [address] Erythrocyte distribution width (RBC) [Ratio] 13.4 % Normal 11.6-14.6 [facility] Comment on above: Performed By: #### L 500.4050, L100.0100, L501.5425, L503.6620 ####[facility] [address] [place], [address] Hematocrit (Bld) [Volume fraction] 21.9 % Low 40-54 [facility] Comment on above: Performed By: #### L 500.4050, L100.0100, L501.5425, L503.6620 ####[facility] [address] [place], [address] Hemoglobin (Bld) [Mass/Vol] 6.8 g/dL Low 13.0-16.5 [facility] Comment on above: Performed By: #### L 500.4050, L100.0100, L501.5425, L503.6620 ####[facility] [address] [place], [address] IG% 0.400 Normal 0.0-0.9 [facility] Comment on above: Result Comment: IG% - Immature Granulocytes (promyelocytes, myelocytes andmetamyelocytes) > 1% indicates that a LEFT SHIFT is Present. Performed By: #### L 500.4050, L100.0100, L501.5425, L503.6620 ####[facility] [address] [place], [address] Lymphocytes/100 WBC (Bld) 11.3 % Low 19-41 [facility] Comment on above: Performed By: #### L 500.4050, L100.0100, L501.5425, L503.6620 ####[facility] [address] [place], [address] MCH (RBC) [Entitic mass] 30.2 pg Normal 27.0-32.0 [facility] Comment on above: Performed By: #### L 500.4050, L100.0100, L501.5425, L503.6620 ####[facility] [address] [place], [address] MCHC (RBC) [Mass/Vol] 31.1 g/dL Low 32-36 [facility] Comment on above: Performed By: #### L 500.4050, L100.0100, L501.5425, L503.6620 ####[facility] [address] [place], [address] MCV (RBC) [Entitic vol] 97.3 fL High 80-94 [facility] Comment on above: Performed By: #### L 500.4050, L100.0100, L501.5425, L503.6620 ####[facility] [address] [place], [address] Monocytes/100 WBC (Bld) 6.4 % Normal 0-10 [facility] Comment on above: Performed By: #### L 500.4050, L100.0100, L501.5425, L503.6620 ####[facility] [address] [place], [address] Neutrophils/100 WBC (Bld) 78.4 % High 47-70 [facility] Comment on above: Performed By: #### L 500.4050, L100.0100, L501.5425, L503.6620 ####[facility] [address] [place], [address] Nucleated RBC (Bld) [#/Vol] 0 10*3/uL Normal 0-5 [facility] Comment on above: Performed By: #### L 500.4050, L100.0100, L501.5425, L503.6620 ####[facility] [address] [place], [address] Platelet mean volume (Bld) [Entitic vol] 11.9 fL Normal 6.2-12.0 [facility] Comment on above: Performed By: #### L 500.4050, L100.0100, L501.5425, L5.6620 ####[facility] [address] [place], [address] Platelets (Bld) [#/Vol] 75 10*3/uL Low 150-450 [facility] Comment on above: Performed By: #### L 500.4050, L100.0100, L501.5425, L503.6620 ####[facility] [address] [place], [address] RBC (Bld) [#/Vol] 2.25 10*6/uL Low 4.6-6.2 [facility] Comment on above: Performed By: #### L 500.4050, L100.0100, L501.5425, L503.6620 ####[facility] [address] [place], [address] RDW SD 47.7 fl High 35.1-43.9 [facility] Comment on above: Performed By: #### L 500.4050, L100.0100, L501.5425, L503.6620 ####[facility] [address] [place], [address] WBC (Bld) [#/Vol] 5.5 10*3/uL Normal 4.4-11.0 [facility] Comment on above: Performed By: #### L 500.4050, L100.0100, L501.5425, L503.6620 ####[facility] [address] [place], [address] Chest 1 View (Portable)on Chest 1 View (Portable) Normal [facility] Comprehensive Metabolic Prof ilon 12-06-2023 Albumin [Mass/Vol] 3.0 g/dL Low 3.2-5.0 [facility] Comment on above: Order Comment: 1Y Performed By: #### L 500.4050, L100.0100, L501.5425, L503.6620 ####[facility] [address] [place], [address] Albumin/Globulin [Mass ratio] 0.9 {ratio} Normal 0.9-2.4 [facility] Comment on above: Order Comment: 1Y Performed By: #### L 500.4050, L100.0100, L501.5425, L503.6620 ####[facility] [address] [place], [address] ALK P 67 U/L Normal 45-117 [facility] Comment on above: Order Comment: 1Y Performed By: #### L 500.4050, L100.0100, L501.5425, L503.6620 ####[facility] [address] [place], [address] ALT [Catalytic activity/Vol] 19 U/L Normal 16-61 [facility] Comment on above: Order Comment: 1Y Performed By: #### L 500.4050, L100.0100, L501.5425, L503.6620 ####[facility] [address] [place], [address] AST [Catalytic activity/Vol] 12 U/L Low 15-37 [facility] Comment on above: Order Comment: 1Y Performed By: #### L 500.4050, L100.0100, L501.5425, L503.6620 ####[facility] [address] [place], [address] Bilirubin [Mass/Vol] 0.40 mg/dL Normal 0.20-1.00 [facility] Comment on above: Order Comment: 1Y Result Comment: For patients on eltrombopag therapy, use of Dimension [place] TBIL is not recommended. Performed By: #### L 500.4050, L100.0100, L501.5425, L503.6620 ####[facility] [address] [place], [address] BUN/CRE 29.4 RATIO High 10-20 [facility] Comment on above: Order Comment: 1Y Performed By: #### L 500.4050, L100.0100, L501.5425, L503.6620 ####[facility] [address] [place], [address] CA,Total 8.1 mg/dL Low 8.5-10.1 [facility] Comment on above: Order Comment: 1Y Performed By: #### L 500.4050, L100.0100, L501.5425, L503.6620 ####[facility] [address] [place], [address] Chloride [Moles/Vol] 106 mmol/L Normal 98-107 [facility] Comment on above: Order Comment: 1Y Performed By: #### L 500.4050, L100.0100, L501.5425, L503.6620 ####[facility] [address] [place], [address] CO2 [Moles/Vol] 26.0 mmol/L Normal 21.0-32.0 [facility] Comment on above: Order Comment: 1Y Performed By: #### L 500.4050, L100.0100, L501.5425, L503.6620 ####[facility] [address] [place], [address] Creatinine [Mass/Vol] 3.44 mg/dL High 0.70-1.30 [facility] Comment on above: Order Comment: 1Y Result Comment: The validity of the calculated GFR GFRAA in patients over70 years has not been determined. Clinical correlation isessential. Performed By: #### L 500.4050, L100.0100, L501.5425, L503.6620 ####[facility] [address] [place], [address] ECRCL 16.67 ml/min Normal [facility] Comment on above: Order Comment: 1Y Performed By: #### L 500.4050, L100.0100, L501.5425, L503.6620 ####[facility] [address] [place], [address] EST GFR - AA 22 mL/min Low >60 [facility] Comment on above: Order Comment: 1Y Result Comment: Afri can Slovenian GFR Calc Performed By: #### L 500.4050, L100.0100, L501.5425, L503.6620 ####[facility] [address] [place], [address] GAP 10 Normal 5-15 [facility] Comment on above: Order Comment: 1Y Performed By: #### L 500.4050, L100.0100, L501.5425, L503.6620 ####[facility] [address] [place], [address] GFR/1.73 sq M.predicted among non-blacks MDRD (S/P/Bld) [Vol rate/Area] 18 mL/min/{1.73_m2} Low >60 [facility] Comment on above: Order Comment: 1Y Result Comment: Non- GFR Calc Performed By: #### L 500.4050, L100.0100, L501.5425, L503.6620 ####[facility] [address] [place], [address] Globulin (S) [Mass/Vol] 3.3 g/dL Normal 2.2-4.2 [facility] Comment on above: Order Comment: 1Y Performed By: #### L 500.4050, L100.0100, L501.5425, L503.6620 ####[facility] [address] [place], [address] Glucose [Mass/Vol] 314 mg/dL High 74-106 [facility] Comment on above: Order Comment: 1Y Result Comment: Gluc ose result greater than or equal to 200 mg/dLsuggests DIABETES MELLITUS per A.D.A. criteria. Performed By: #### L 500.4050, L100.0100, L501.5425, L503.6620 ####[facility] [address] [place], [address] Potassium [Moles/Vol] 4.0 mmol/L Normal 3.5-5.1 [facility] Comment on above: Order Comment: 1Y Performed By: #### L 500.4050, L100.0100, L501.5425, L503.6620 ####[facility] [address] [place], [address] Sodium [Moles/Vol] 142 mmol/L Normal 136-145 [facility] Comment on above: Order Comment: 1Y Performed By: #### L 500.4050, L100.0100, L501.5425, L503.6620 ####[facility] [address] [place], [address] T PROT 6.3 g/dL Low 6.4-8.2 [facility] Comment on above: Order Comment: 1Y Performed By: #### L 500.4050, L100.0100, L501.5425, L503.6620 ####[facility] [address] [place], [address] Urea nitrogen [Mass/Vol] 101 mg/dL Invalid Interpretation Code 7-18 [facility] Comment on above: Order Comment: 1Y Result Comment: Crit ical Result(s) Called at: 14:23:51 12/06/2023 by:Didier Xiao to [facility]. Results read back by same. Performed By: #### L 500.4050, L100.0100, L501.5425, L503.6620 ####[facility] [address] [place], [address] Emergency Department Summary on 12-06-2023 Emergency Department Summary Normal [facility] H AND P Exam - Hospitaliston 12-06-2023 H&P Exam - Hospitalist Normal [facility] Hemoglobinon 12-06-2023 Hemoglobin (Bld) [Mass/Vol] 7.8 g/dL Low 13.0-16.5 [facility] Comment on above: Performed By: #### L 100.1300 ####[facility] [address] [place], [address] Kidney and Bladderon 024 Kidney and Bladder Normal [facility] L501.4020on 12-06-2023 TROPONIN-I HS 5240 pg/mL Invalid Interpretation Code 3.0-78.0 [facility] Comment on above: Order Comment: 'TROP ' Serial specimen #1, #2 or #3: 3 Result Comment: Plea se Note: New Test Units and Gender Specific Reference Ranges. For more information see Policy Stat Procedure [place] High Sensitivity Troponin (TNIH) and attachments. Performed By: #### L 501.4020 ####[facility] [address] [place], [address] TROPONIN-I HS 2618 pg/mL Invalid Interpretation Code 3.0-78.0 [facility] Comment on above: Result Comment: Crit ical Result(s) Called at: 19:14:36 12/06/2023 by: SARITHA. Results read back by Adam Please Note: New Test Units and Gender Specific Reference Ranges. For more information see Policy Stat Procedure [place] High Sensitivity Troponin (TNIH) and attachments. Performed By: #### L 501.4020 ####[facility] [address] [place], [address] L501.5425on 12-06-2023 TROPONIN-I HS 146 pg/mL Invalid Interpretation Code 3.0-78.0 [facility] Comment on above: Order Comment: 1Y Result Comment: Crit ical Result(s) Called at: 14:23:51 12/06/2023 by:Didier Xiao to [facility]. Results read back by abdelrahman. Please Note: New Test Units and Gender Specific Reference Ranges. For more information see Policy Stat Procedure [place] High Sensitivity Troponin (TNIH) and attachments. Performed By: #### L 500.4050, L100.0100, L501.5425, L503.6620 ####[facility] [address] [place], [address] M100.678on 12-06-2023 M100.678 Pending SARS-CoV-2 (COVID 19) Negative INFLUENZA A Negative INFLUENZA B Negative RSV PCR Negative Normal [facility] Comment on above: Performed By: #### M 100.678 ####[facility] [address] [place], [address] Type AND Screenon 12-06-2023 Ab SCREEN GEL Negative Normal [facility] Comment on above: Order Comment: CMV N EG? NNumber of units to transfuse: 1Is pt's Hgb is = to 7.0 mg/dl or Hct </= 21%? YReason for Ordering Blood: ChronicIs there symptomatic anemia? Shin the blood/blood products to be transfused? YIs the patient having/had surgery? NWdesean Elaine Performed By: #### B TS, BRC ####[facility] [address] [place], [address] ABO and Rh group Nom (Bld) Blood group A Rh(D) negative Normal [facility] Comment on above: Order Comment: CMV N EG? NNumber of units to transfuse: 1Is pt's Hgb is = to 7.0 mg/dl or Hct </= 21%? YReason for Ordering Blood: ChronicIs there symptomatic anemia? Shin the blood/blood products to be transfused? YIs the patient having/had surgery? Ashlee Elaine Performed By: #### B TS, BRC ####[facility] [address] [place], [address] Urea Nitrogen, Urineon 12-05 URINE UREA 625 mg/dL Normal NO RANGE EST. [facility] Comment on above: Performed By: #### L 500.9400, L502.0715 ####[facility] [address] [place], [address] Urine Electrolytes- Randomon 12-06-2023 Sodium (U) [Moles/Vol] 42 mmol/L Normal Not Establ. [facility] Comment on above: Performed By: #### L 500.9400, L502.0715 ####[facility] [address] [place], [address] UR CL 15 mmol/L Normal Not Establ. [facility] Comment on above: Performed By: #### L 500.9400, L502.0715 ####[facility] [address] [place], [address] UR K 24.0 mmol/L Normal Not Establ. [facility] Comment on above: Performed By: #### L 500.9400, L502.0715 ####[facility] [address] [place], [address] Venous Blood Gason 4 Blood Gas Type DAYANA Normal [facility] Comment on above: Performed By: #### L 9000.0810 ####[facility] [address] [place], [address] CO2 [Moles/Vol] 27 mmol/L Normal 23-33 [facility] Comment on above: Performed By: #### L 9000.0810 ####[facility] [address] [place], [address] FI02 3.0 Normal [facility] Comment on above: Performed By: #### L 9000.0810 ####[facility] [address] [place], [address] HCO3 (Bld) [Moles/Vol] 25 mmol/L Normal 22-26 [facility] Comment on above: Performed By: #### L 9000.0810 ####[facility] [address] [place], [address] O2 Delivery Dev Cannula Normal [facility] Comment on above: Performed By: #### L 9000.0810 ####[facility] [address] [place], [address] SITE Not entered Normal [facility] Comment on above: Performed By: #### L 9000.0810 ####[facility] [address] [place], [address] VBG BE 0 mmol/L Normal -1.0-3.5 [facility] Comment on above: Performed By: #### L 9000.0810 ####[facility] [address] [place], [address] VBG pCO2 42.6 mmHg Normal 41-51 [facility] Comment on above: Performed By: #### L 9000.0810 ####[facility] [address] [place], [address] VBG pH 7.38 Normal 7.32-7.42 [facility] Comment on above: Performed By: #### L 9000.0810 ####[facility] [address] [place], [address] VBG PO2 53 mmHg High 25-40 [facility] Comment on above: Performed By: #### L 9000.0810 ####[facility] [address] [place], [address] VBG SO2 87 High 50-70 [facility] Comment on above: Performed By: #### L 9000.0810 ####[facility] [address] [place], [address] Basic Metabolic Profile (BMP )on 12-05-2023 BUN/CRE 31.3 RATIO High 10-20 [facility] Comment on above: Order Comment: ORDER S INTERNALLY WERE ALREADY DONE Performed By: #### L 500.2500 ####[facility] [address] [place], [address] CA,Total 8.3 mg/dL Low 8.5-10.1 [facility] Comment on above: Order Comment: ORDER S INTERNALLY WERE ALREADY DONE Performed By: #### L 500.2500 ####[facility] [address] [place], [address] Chloride [Moles/Vol] 104 mmol/L Normal 98-107 [facility] Comment on above: Order Comment: ORDER S INTERNALLY WERE ALREADY DONE Performed By: #### L 500.2500 ####[facility] [address] [place], [address] CO2 [Moles/Vol] 30.0 mmol/L Normal 21.0-32.0 [facility] Comment on above: Order Comment: ORDER S INTERNALLY WERE ALREADY DONE Performed By: #### L 500.2500 ####[facility] [address] [place], [address] Creatinine [Mass/Vol] 3.23 mg/dL High 0.70-1.30 [facility] Comment on above: Order Comment: ORDER S INTERNALLY WERE ALREADY DONE Result Comment: The validity of the calculated GFR GFRAA in patients over70 years has not been determined. Clinical correlation isessential. Performed By: #### L 500.2500 ####[facility] [address] [place], [address] EST GFR - AA 24 mL/min Low >60 [facility] Comment on above: Order Comment: ORDER S INTERNALLY WERE ALREADY DONE Result Comment: Afri can [place]ian GFR Calc Performed By: #### L 500.2500 ####[facility] [address] [place], [address] GAP 7 Normal 5-15 [facility] Comment on above: Order Comment: ORDER S INTERNALLY WERE ALREADY DONE Performed By: #### L 500.2500 ####[facility] [address] [place], [address] GFR/1.73 sq M.predicted among non-blacks MDRD (S/P/Bld) [Vol rate/Area] 20 mL/min/{1.73_m2} Low >60 [facility] Comment on above: Order Comment: ORDER S INTERNALLY WERE ALREADY DONE Result Comment: Non- GFR Calc Performed By: #### L 500.2500 ####[facility] [address] [place], [address] Glucose [Mass/Vol] 151 mg/dL High 74-106 [facility] Comment on above: Order Comment: ORDER S INTERNALLY WERE ALREADY DONE Result Comment: Fast ing Glucose result greater than or equal to 126 mg/dLsuggests DIABETES MELLITUS per A.D.A. criteria. Performed By: #### L 500.2500 ####[facility] [address] [place], [address] Potassium [Moles/Vol] 4.0 mmol/L Normal 3.5-5.1 [facility] Comment on above: Order Comment: ORDER S INTERNALLY WERE ALREADY DONE Performed By: #### L 500.2500 ####[facility] [address] [place], [address] Sodium [Moles/Vol] 141 mmol/L Normal 136-145 [facility] Comment on above: Order Comment: ORDER S INTERNALLY WERE ALREADY DONE Performed By: #### L 500.2500 ####[facility] [address] [place], [address] Urea nitrogen [Mass/Vol] 101 mg/dL Invalid Interpretation Code 7-18 [facility] Comment on above: Order Comment: ORDER S INTERNALLY WERE ALREADY DONE Result Comment: Crit ical Result(s) Called at: 14:07:14 12/05/2023 by: JEANETTE TO ANNETTA GAYLE. Results read back by same. Performed By: #### L 500.2500 ####[facility] [address] [place], [address] Abdomen/Pelvis W IV Cont ONL Yon 12-02-2023 Abdomen/Pelvis W IV Cont ONLY Normal [facility] Basic Metabolic Profile (BMP )on 12-02-2023 BUN/CRE 35.8 RATIO High 10-20 [facility] Comment on above: Performed By: #### L 500.2500, L100.0100 ####[facility] [address] [place], [address] CA,Total 8.8 mg/dL Normal 8.5-10.1 [facility] Comment on above: Performed By: #### L 500.2500, L100.0100 ####[facility] [address] [place], [address] Chloride [Moles/Vol] 104 mmol/L Normal 98-107 [facility] Comment on above: Performed By: #### L 500.2500, L100.0100 ####[facility] [address] [place], [address] CO2 [Moles/Vol] 30.0 mmol/L Normal 21.0-32.0 [facility] Comment on above: Performed By: #### L 500.2500, L100.0100 ####[facility] [address] [place], [address] Creatinine [Mass/Vol] 2.43 mg/dL High 0.70-1.30 [facility] Comment on above: Result Comment: The validity of the calculated GFR GFRAA in patients over70 years has not been determined. Clinical correlation isessential. Performed By: #### L 500.2500, L100.0100 ####[facility] [address] [place], [address] ECRCL 22.97 ml/min Normal [facility] Comment on above: Performed By: #### L 500.2500, L100.0100 ####[facility] [address] [place], [address] EST GFR - AA 33 mL/min Low >60 [facility] Comment on above: Result Comment: Afri can Slovenian GFR Calc Performed By: #### L 500.2500, L100.0100 ####[facility] [address] [place], [address] GAP 6 Normal 5-15 [facility] Comment on above: Performed By: #### L 500.2500, L100.0100 ####[facility] [address] [place], [address] GFR/1.73 sq M.predicted among non-blacks MDRD (S/P/Bld) [Vol rate/Area] 27 mL/min/{1.73_m2} Low >60 [facility] Comment on above: Result Comment: Non- GFR Calc Performed By: #### L 500.2500, L100.0100 ####[facility] [address] [place], [address] Glucose [Mass/Vol] 324 mg/dL High 74-106 [facility] Comment on above: Result Comment: Gluc ose result greater than or equal to 200 mg/dLsuggests DIABETES MELLITUS per A.D.A. criteria. Performed By: #### L 500.2500, L100.0100 ####[facility] [address] [place], [address] Potassium [Moles/Vol] 4.7 mmol/L Normal 3.5-5.1 [facility] Comment on above: Performed By: #### L 500.2500, L100.0100 ####[facility] [address] [place], [address] Sodium [Moles/Vol] 140 mmol/L Normal 136-145 [facility] Comment on above: Performed By: #### L 500.2500, L100.0100 ####[facility] [address] [place], [address] Urea nitrogen [Mass/Vol] 87 mg/dL High 7-18 [facility] Comment on above: Performed By: #### L 500.2500, L100.0100 ####[facility] [address] [place], [address] CBC W/Diff, Automatedon 11-11 Absolute Lymph 0.78 X10 3/uL Low 0.83-4.51 [facility] Comment on above: Performed By: #### L 500.2500, L100.0100 ####[facility] [address] [place], [address] Absolute Neut 6.5 X10 3/uL Normal 2.0-7.7 [facility] Comment on above: Performed By: #### L 500.2500, L100.0100 ####[facility] [address] [place], [address] Basophils/100 WBC (Bld) 0.1 % Normal 0-1 [facility] Comment on above: Performed By: #### L 500.2500, L100.0100 ####[facility] [address] [place], [place], [address] Eosinophils/100 WBC (Bld) 2.7 % Normal 0-5 [facility] Comment on above: Performed By: #### L 500.2500, L100.0100 ####[facility] [address] [place], [address] Erythrocyte distribution width (RBC) [Ratio] 13.3 % Normal 11.6-14.6 [facility] Comment on above: Performed By: #### L 500.2500, L100.0100 ####[facility] [address] [place], [address] Hematocrit (Bld) [Volume fraction] 23.9 % Low 40-54 [facility] Comment on above: Performed By: #### L 500.2500, L100.0100 ####[facility] [address] [place], [address] Hemoglobin (Bld) [Mass/Vol] 7.7 g/dL Low 13.0-16.5 [facility] Comment on above: Performed By: #### L 500.2500, L100.0100 ####[facility] [address] [place], [address] IG% 0.300 Normal 0.0-0.9 [facility] Comment on above: Result Comment: IG% - Immature Granulocytes (promyelocytes, myelocytes andmetamyelocytes) > 1% indicates that a LEFT SHIFT is Present. Performed By: #### L 500.2500, L100.0100 ####[facility] [address] [place], [address] Lymphocytes/100 WBC (Bld) 9.9 % Low 19-41 [facility] Comment on above: Performed By: #### L 500.2500, L100.0100 ####[facility] [address] [place], [address] MCH (RBC) [Entitic mass] 30.7 pg Normal 27.0-32.0 [facility] Comment on above: Performed By: #### L 500.2500, L100.0100 ####[facility] [address] [place], [address] MCHC (RBC) [Mass/Vol] 32.2 g/dL Normal 32-36 [facility] Comment on above: Performed By: #### L 500.2500, L100.0100 ####[facility] [address] [place], [address] MCV (RBC) [Entitic vol] 95.2 fL High 80-94 [facility] Comment on above: Performed By: #### L 500.2500, L100.0100 ####[facility] [address] [place], [address] Monocytes/100 WBC (Bld) 5.3 % Normal 0-10 [facility] Comment on above: Performed By: #### L 500.2500, L100.0100 ####[facility] [address] [place], [address] Neutrophils/100 WBC (Bld) 81.7 % High 47-70 [facility] Comment on above: Performed By: #### L 500.2500, L100.0100 ####[facility] [address] [place], [address] Nucleated RBC (Bld) [#/Vol] 0 10*3/uL Normal 0-5 [facility] Comment on above: Performed By: #### L 500.2500, L100.0100 ####[facility] [address] [place], [address] Platelet mean volume (Bld) [Entitic vol] 11.1 fL Normal 6.2-12.0 [facility] Comment on above: Performed By: #### L 500.2500, L100.0100 ####[facility] [address] [place], [address] Platelets (Bld) [#/Vol] 85 10*3/uL Low 150-450 [facility] Comment on above: Performed By: #### L 500.2500, L100.0100 ####[facility] [address] [place], [address] RBC (Bld) [#/Vol] 2.51 10*6/uL Low 4.6-6.2 [facility] Comment on above: Performed By: #### L 500.2500, L100.0100 ####[facility] [address] [place], [address] RDW SD 46.6 fl High 35.1-43.9 [facility] Comment on above: Performed By: #### L 500.2500, L100.0100 ####[facility] [address] [place], [address] WBC (Bld) [#/Vol] 7.9 10*3/uL Normal 4.4-11.0 [facility] Comment on above: Performed By: #### L 500.2500, L100.0100 ####[facility] [address] [place], [address] Emergency Department Summary on 12-02-2023 Emergency Department Summary Normal [facility] Urinalysis, Completeon 12-01 BACTERIA 0 SEEN Normal None Seen [facility] Comment on above: Order Comment: YUKI CTOR TO SPECIFY Performed By: #### L 400.0001 ####[facility] [address] [place], [address] EPI,SQUAMOUS 0 SEEN Normal 0-5 [facility] Comment on above: Order Comment: COLLE CTOR TO SPECIFY Performed By: #### L 400.0001 ####[facility] [address] [place], [address] Mucus Ql (Urine sed) 0 SEEN Normal [facility] Comment on above: Order Comment: COLLE CTOR TO SPECIFY Performed By: #### L 400.0001 ####[facility] [address] [place], [address] RBC 0 SEEN Normal 0-5 [facility] Comment on above: Order Comment: COLLE CTOR TO SPECIFY Performed By: #### L 400.0001 ####[facility] [address] [place], [address] WBC 0 SEEN Normal 0-5 [facility] Comment on above: Order Comment: COLLE CTOR TO SPECIFY Performed By: #### L 400.0001 ####[facility] [address] [place], [address] Basic Metabolic Profile (BMP )on 11-23-2023 BUN/CRE 40.1 RATIO High 10-20 [facility] Comment on above: Performed By: #### L 500.2500, L100.0100 ####[facility] [address] [place], [address] CA,Total 8.7 mg/dL Normal 8.5-10.1 [facility] Comment on above: Performed By: #### L 500.2500, L100.0100 ####[facility] [address] [place], [address] Chloride [Moles/Vol] 105 mmol/L Normal 98-107 [facility] Comment on above: Performed By: #### L 500.2500, L100.0100 ####[facility] [address] [place], [address] CO2 [Moles/Vol] 23.0 mmol/L Normal 21.0-32.0 [facility] Comment on above: Performed By: #### L 500.2500, L100.0100 ####[facility] [address] [place], [address] Creatinine [Mass/Vol] 2.84 mg/dL High 0.70-1.30 [facility] Comment on above: Result Comment: The validity of the calculated GFR GFRAA in patients over70 years has not been determined. Clinical correlation isessential. Performed By: #### L 500.2500, L100.0100 ####[facility] [address] [place], [address] EST GFR - AA 27 mL/min Low >60 [facility] Comment on above: Result Comment: Afri can Slovenian GFR Calc Performed By: #### L 500.2500, L100.0100 ####[facility] [address] [place], [address] GAP 11 Normal 5-15 [facility] Comment on above: Performed By: #### L 500.2500, L100.0100 ####[facility] [address] [place], [address] GFR/1.73 sq M.predicted among non-blacks MDRD (S/P/Bld) [Vol rate/Area] 23 mL/min/{1.73_m2} Low >60 [facility] Comment on above: Result Comment: Non- GFR Calc Performed By: #### L 500.2500, L100.0100 ####[facility] [address] [place], [address] Glucose [Mass/Vol] 457 mg/dL Invalid Interpretation Code 74-106 [facility] Comment on above: Result Comment: Crit ical Result(s) Called at: 13:43:59 11/23/2023 by: Jeremy Clark. Results read back by same.Glucose result greater than or equal to 200 mg/dLsuggests DIABETES MELLITUS per A.D.A. criteria. Performed By: #### L 500.2500, L100.0100 ####[facility] [address] [place], [address] Potassium [Moles/Vol] 4.7 mmol/L Normal 3.5-5.1 [facility] Comment on above: Performed By: #### L 500.2500, L100.0100 ####[facility] [address] [place], [address] Sodium [Moles/Vol] 139 mmol/L Normal 136-145 [facility] Comment on above: Performed By: #### L 500.2500, L100.0100 ####[facility] [address] [place], [address] Urea nitrogen [Mass/Vol] 114 mg/dL Invalid Interpretation Code 7-18 [facility] Comment on above: Result Comment: Crit ical Result(s) Called at: 13:43:59 11/23/2023 by: Jeremy to Ana M Clark. Results read back by same. Performed By: #### L 500.2500, L100.0100 ####[facility] [address] [place], [address] CBC W/Diff, Automatedon 09-03 14-2023 Absolute Lymph 0.64 X10 3/uL Low 0.83-4.51 [facility] Comment on above: Performed By: #### L 500.2500, L100.0100 ####[facility] [address] [place], [address] Absolute Neut 7.2 X10 3/uL Normal 2.0-7.7 [facility] Comment on above: Performed By: #### L 500.2500, L100.0100 ####[facility] [address] [place], [address] Basophils/100 WBC (Bld) 0.1 % Normal 0-1 [facility] Comment on above: Performed By: #### L 500.2500, L100.0100 ####[facility] [address] [place], [address] Eosinophils/100 WBC (Bld) 0.5 % Normal 0-5 [facility] Comment on above: Performed By: #### L 500.2500, L100.0100 ####[facility] [address] [place], [address] Erythrocyte distribution width (RBC) [Ratio] 14.7 % High 11.6-14.6 [facility] Comment on above: Performed By: #### L 500.2500, L100.0100 ####[facility] [address] [place], [address] Hematocrit (Bld) [Volume fraction] 27.3 % Low 40-54 [facility] Comment on above: Performed By: #### L 500.2500, L100.0100 ####[facility] [address] [place], [address] Hemoglobin (Bld) [Mass/Vol] 8.4 g/dL Low 13.0-16.5 [facility] Comment on above: Performed By: #### L 500.2500, L100.0100 ####[facility] [address] [place], [address] IG% 0.900 Normal 0.0-0.9 [facility] Comment on above: Result Comment: IG% - Immature Granulocytes (promyelocytes, myelocytes andmetamyelocytes) > 1% indicates that a LEFT SHIFT is Present. Performed By: #### L 500.2500, L100.0100 ####[facility] [address] [place], [address] Lymphocytes/100 WBC (Bld) 7.8 % Low 19-41 [facility] Comment on above: Performed By: #### L 500.2500, L100.0100 ####[facility] [address] [place], [address] MCH (RBC) [Entitic mass] 29.8 pg Normal 27.0-32.0 [facility] Comment on above: Performed By: #### L 500.2500, L100.0100 ####[facility] [address] [place], [address] MCHC (RBC) [Mass/Vol] 30.8 g/dL Low 32-36 [facility] Comment on above: Performed By: #### L 500.2500, L100.0100 ####[facility] [address] [place], [address] MCV (RBC) [Entitic vol] 96.8 fL High 80-94 [facility] Comment on above: Performed By: #### L 500.2500, L100.0100 ####[facility] [address] [place], [address] Monocytes/100 WBC (Bld) 3.1 % Normal 0-10 [facility] Comment on above: Performed By: #### L 500.2500, L100.0100 ####[facility] [address] [place], [address] Neutrophils/100 WBC (Bld) 87.6 % High 47-70 [facility] Comment on above: Performed By: #### L 500.2500, L100.0100 ####[facility] [address] [place], [address] Nucleated RBC (Bld) [#/Vol] 0 10*3/uL Normal 0-5 [facility] Comment on above: Performed By: #### L 500.2500, L100.0100 ####[facility] [address] [place], [address] Platelet mean volume (Bld) [Entitic vol] 11.8 fL Normal 6.2-12.0 [facility] Comment on above: Performed By: #### L 500.2500, L100.0100 ####[facility] [address] [place], [address] Platelets (Bld) [#/Vol] 117 10*3/uL Low 150-450 [facility] Comment on above: Performed By: #### L 500.2500, L100.0100 ####[facility] [address] [place], [address] RBC (Bld) [#/Vol] 2.82 10*6/uL Low 4.6-6.2 [facility] Comment on above: Performed By: #### L 500.2500, L100.0100 ####[facility] [address] [place], [address] RDW SD 52.2 fl High 35.1-43.9 [facility] Comment on above: Performed By: #### L 500.2500, L100.0100 ####[facility] [address] [place], [address] WBC (Bld) [#/Vol] 8.2 10*3/uL Normal 4.4-11.0 [facility] Comment on above: Performed By: #### L 500.2500, L100.0100 ####[facility] [address] [place], [address] BNP,B-Type NATRIURETIC PEPTI Nico 11-20-2023 Natriuretic peptide B (Bld) [Mass/Vol] 186.8 pg/mL High 0-100 [facility] Comment on above: Performed By: #### L 503.6620 ####[facility] [address] [place], [address] Basic Metabolic Profile (BMP )on 11-20-2023 BUN/CRE 50.2 RATIO High 10-20 [facility] Comment on above: Performed By: #### L 100.0100, L500.2500 ####[facility] [address] [place], [address] CA,Total 9.6 mg/dL Normal 8.5-10.1 [facility] Comment on above: Performed By: #### L 100.0100, L500.2500 ####[facility] [address] [place], [address] Chloride [Moles/Vol] 107 mmol/L Normal 98-107 [facility] Comment on above: Performed By: #### L 100.0100, L500.2500 ####[facility] [address] [place], [address] CO2 [Moles/Vol] 26.0 mmol/L Normal 21.0-32.0 [facility] Comment on above: Performed By: #### L 100.0100, L500.2500 ####[facility] [address] [place], [address] Creatinine [Mass/Vol] 2.09 mg/dL High 0.70-1.30 [facility] Comment on above: Result Comment: The validity of the calculated GFR GFRAA in patients over70 years has not been determined. Clinical correlation isessential. Performed By: #### L 100.0100, L500.2500 ####[facility] [address] [place], [address] ECRCL 26.58 ml/min Normal [facility] Comment on above: Performed By: #### L 100.0100, L500.2500 ####[facility] [address] [place], [address] EST GFR - AA 39 mL/min Low >60 [facility] Comment on above: Result Comment: Afri can Slovenian GFR Calc Performed By: #### L 100.0100, L500.2500 ####[facility] [address] [place], [address] GAP 7 Normal 5-15 [facility] Comment on above: Performed By: #### L 100.0100, L500.2500 ####[facility] [address] [place], [address] GFR/1.73 sq M.predicted among non-blacks MDRD (S/P/Bld) [Vol rate/Area] 32 mL/min/{1.73_m2} Low >60 [facility] Comment on above: Result Comment: Non- GFR Calc Performed By: #### L 100.0100, L500.2500 ####[facility] [address] [place], [address] Glucose [Mass/Vol] 212 mg/dL High 74-106 [facility] Comment on above: Result Comment: Gluc ose result greater than or equal to 200 mg/dLsuggests DIABETES MELLITUS per A.D.A. criteria. Performed By: #### L 100.0100, L500.2500 ####[facility] [address] [place], [address] Potassium [Moles/Vol] 4.7 mmol/L Normal 3.5-5.1 [facility] Comment on above: Performed By: #### L 100.0100, L500.2500 ####[facility] [address] [place], [address] Sodium [Moles/Vol] 140 mmol/L Normal 136-145 [facility] Comment on above: Performed By: #### L 100.0100, L500.2500 ####[facility] [address] [place], [address] Urea nitrogen [Mass/Vol] 105 mg/dL Invalid Interpretation Code 7-18 [facility] Comment on above: Result Comment: Crit ical Result(s) Called at: 07:44:50 11/20/2023 by: TUCKER Wilson. Results read back by same. Performed By: #### L 100.0100, L500.2500 ####[facility] [address] [place], [address] Bedside Glucoseon 11-20-2023 FINGERSTICK GLU 295 mg/dL High 74-106 [facility] Comment on above: Result Comment: MYKE GEMENT OF PATIENT CARE PER NURSING PROTOCOL Performed By: #### L 501.080 ####[facility] [address] [place], [address] FINGERSTICK GLU 285 mg/dL High 74-106 [facility] Comment on above: Result Comment: MYKE GEMENT OF PATIENT CARE PER NURSING PROTOCOL Performed By: #### L 501.080 ####[facility] [address] [place], [address] FINGERSTICK GLU 194 mg/dL High 74-106 [facility] Comment on above: Result Comment: MYKE GEMENT OF PATIENT CARE PER NURSING PROTOCOL Performed By: #### L 501.080 ####[facility] [address] [place], [address] CBC W/Diff, Automatedon 09-1 0-4 Absolute Lymph 0.66 X10 3/uL Low 0.83-4.51 [facility] Comment on above: Performed By: #### L 100.0100, L500.2500 ####[facility] [address] [place], [address] Absolute Neut 9.9 X10 3/uL High 2.0-7.7 [facility] Comment on above: Performed By: #### L 100.0100, L500.2500 ####[facility] [address] [place], [address] Basophils/100 WBC (Bld) 0.0 % Normal 0-1 [facility] Comment on above: Performed By: #### L 100.0100, L500.2500 ####[facility] [address] [place], [address] Eosinophils/100 WBC (Bld) 0.0 % Normal 0-5 [facility] Comment on above: Performed By: #### L 100.0100, L500.2500 ####[facility] [address] [place], [address] Erythrocyte distribution width (RBC) [Ratio] 14.8 % High 11.6-14.6 [facility] Comment on above: Performed By: #### L 100.0100, L500.2500 ####[facility] [address] [place], [address] Hematocrit (Bld) [Volume fraction] 24.8 % Low 40-54 [facility] Comment on above: Performed By: #### L 100.0100, L500.2500 ####[facility] [address] [place], [address] Hemoglobin (Bld) [Mass/Vol] 8.1 g/dL Low 13.0-16.5 [facility] Comment on above: Performed By: #### L 100.0100, L500.2500 ####[facility] [address] [place], [address] IG% 0.700 Normal 0.0-0.9 [facility] Comment on above: Result Comment: IG% - Immature Granulocytes (promyelocytes, myelocytes andmetamyelocytes) > 1% indicates that a LEFT SHIFT is Present. Performed By: #### L 100.0100, L500.2500 ####[facility] [address] [place], [address] Lymphocytes/100 WBC (Bld) 6.1 % Low 19-41 [facility] Comment on above: Performed By: #### L 100.0100, L500.2500 ####[facility] [address] [place], [address] MCH (RBC) [Entitic mass] 31.2 pg Normal 27.0-32.0 [facility] Comment on above: Performed By: #### L 100.0100, L500.2500 ####[facility] [address] [place], [address] MCHC (RBC) [Mass/Vol] 32.7 g/dL Normal 32-36 [facility] Comment on above: Performed By: #### L 100.0100, L500.2500 ####[facility] [address] [place], [address] MCV (RBC) [Entitic vol] 95.4 fL High 80-94 [facility] Comment on above: Performed By: #### L 100.0100, L500.2500 ####[facility] [address] [place], [address] Monocytes/100 WBC (Bld) 2.5 % Normal 0-10 [facility] Comment on above: Performed By: #### L 100.0100, L500.2500 ####[facility] [address] [place], [address] Neutrophils/100 WBC (Bld) 90.7 % High 47-70 [facility] Comment on above: Performed By: #### L 100.0100, L500.2500 ####[facility] [address] [place], [address] Nucleated RBC (Bld) [#/Vol] 0 10*3/uL Normal 0-5 [facility] Comment on above: Performed By: #### L 100.0100, L500.2500 ####[facility] [address] [place], [address] Platelet mean volume (Bld) [Entitic vol] 11.0 fL Normal 6.2-12.0 [facility] Comment on above: Performed By: #### L 100.0100, L500.2500 ####[facility] [address] [place], [address] Platelets (Bld) [#/Vol] 107 10*3/uL Low 150-450 [facility] Comment on above: Performed By: #### L 100.0100, L500.2500 ####[facility] [address] [place], [address] RBC (Bld) [#/Vol] 2.60 10*6/uL Low 4.6-6.2 [facility] Comment on above: Performed By: #### L 100.0100, L500.2500 ####[facility] [address] [place], [address] RDW SD 51.3 fl High 35.1-43.9 [facility] Comment on above: Performed By: #### L 100.0100, L500.2500 ####[facility] [address] [place], [address] WBC (Bld) [#/Vol] 10.9 10*3/uL Normal 4.4-11.0 [facility] Comment on above: Performed By: #### L 100.0100, L500.2500 ####[facility] [address] [place], [address] Chest 1 View (Portable)on Chest 1 View (Portable) Normal [facility] Consultation - Nephrologyon 11-20-2023 Consultation - Nephrology Normal [facility] Discharge Instructionon 11-10 Discharge Instruction Normal [facility] Liver Profileon 11-20-2023 Albumin [Mass/Vol] 3.3 g/dL Normal 3.2-5.0 [facility] Comment on above: Order Comment: Add-o n to morning labs if possible Performed By: #### L 500.3400 ####[facility] [address] [place], [address] ALK P 71 U/L Normal 45-117 [facility] Comment on above: Order Comment: Add-o n to morning labs if possible Performed By: #### L 500.3400 ####[facility] [address] [place], [address] ALT [Catalytic activity/Vol] 17 U/L Normal 16-61 [facility] Comment on above: Order Comment: Add-o n to morning labs if possible Performed By: #### L 500.3400 ####[facility] [address] [place], [address] AST [Catalytic activity/Vol] 9 U/L Low 15-37 [facility] Comment on above: Order Comment: Add-o n to morning labs if possible Performed By: #### L 500.3400 ####[facility] [address] [place], [address] Bilirubin [Mass/Vol] 0.40 mg/dL Normal 0.20-1.00 [facility] Comment on above: Order Comment: Add-o n to morning labs if possible Result Comment: For patients on eltrombopag therapy, use of Dimension [place] TBIL is not recommended. Performed By: #### L 500.3400 ####[facility] [address] [place], [address] Bilirubin.direct [Mass/Vol] 0.10 mg/dL Normal 0.00-0.30 [facility] Comment on above: Order Comment: Add-o n to morning labs if possible Performed By: #### L 500.3400 ####[facility] [address] [place], [address] Globulin (S) [Mass/Vol] 3.0 g/dL Normal 2.2-4.2 [facility] Comment on above: Order Comment: Add-o n to morning labs if possible Performed By: #### L 500.3400 ####[facility] [address] [place], [address] T PROT 6.3 g/dL Low 6.4-8.2 [facility] Comment on above: Order Comment: Add-o n to morning labs if possible Performed By: #### L 500.3400 ####[facility] [address] [place], [address] Protein+Creatinine Ratio,Uri neon 11-20-2023 PROT:CRE RATIO 683 mg/g CRE High 0-200 [facility] Comment on above: Performed By: #### L 501.0900 ####[facility] [address] [place], [address] Protein (U) [Mass/Vol] 35.3 mg/dL High <11.9 [facility] Comment on above: Performed By: #### L 501.0900 ####[facility] [address] [place], [address] UR CREAT 51.70 mg/dL Normal NO RANGE EST. [facility] Comment on above: Performed By: #### L 501.0900 ####[facility] [address] [place], [address] Venous Blood Gason 4 Blood Gas Type DAYANA Normal [facility] Comment on above: Performed By: #### L 9000.0810 ####[facility] [address] [place], [address] CO2 [Moles/Vol] 24 mmol/L Normal 23-33 [facility] Comment on above: Performed By: #### L 9000.0810 ####[facility] [address] [place], [address] FI02 3.0 Normal [facility] Comment on above: Performed By: #### L 9000.0810 ####[facility] [address] [place], [address] HCO3 (Bld) [Moles/Vol] 23 mmol/L Normal 22-26 [facility] Comment on above: Performed By: #### L 9000.0810 ####[facility] [address] [place], [address] O2 Delivery Dev Cannula Normal [facility] Comment on above: Performed By: #### L 9000.0810 ####[facility] [address] [place], [address] SITE Not entered Normal [facility] Comment on above: Performed By: #### L 9000.0810 ####[facility] [address] [place], [address] VBG BE -3 mmol/L Low -1.0-3.5 [facility] Comment on above: Performed By: #### L 9000.0810 ####[facility] [address] [place], [address] VBG pCO2 42.2 mmHg Normal 41-51 [facility] Comment on above: Performed By: #### L 9000.0810 ####[facility] [address] [place], [address] VBG pH 7.34 Normal 7.32-7.42 [facility] Comment on above: Performed By: #### L 9000.0810 ####[facility] [address] [place], [address] VBG PO2 55 mmHg High 25-40 [facility] Comment on above: Performed By: #### L 9000.0810 ####[facility] [address] [place], [address] VBG SO2 86 High 50-70 [facility] Comment on above: Performed By: #### L 9000.0810 ####[facility] [address] [place], [address] Basic Metabolic Profile (BMP )on 11-19-2023 BUN/CRE 42.7 RATIO High 10-20 [facility] Comment on above: Performed By: #### L 500.2500, L100.0100 ####[facility] [address] [place], [address] CA,Total 9.2 mg/dL Normal 8.5-10.1 [facility] Comment on above: Performed By: #### L 500.2500, L100.0100 ####[facility] [address] [place], [address] Chloride [Moles/Vol] 105 mmol/L Normal 98-107 [facility] Comment on above: Performed By: #### L 500.2500, L100.0100 ####[facility] [address] [place], [address] CO2 [Moles/Vol] 26.0 mmol/L Normal 21.0-32.0 [facility] Comment on above: Performed By: #### L 500.2500, L100.0100 ####[facility] [address] [place], [address] Creatinine [Mass/Vol] 2.13 mg/dL High 0.70-1.30 [facility] Comment on above: Result Comment: The validity of the calculated GFR GFRAA in patients over70 years has not been determined. Clinical correlation isessential. Performed By: #### L 500.2500, L100.0100 ####[facility] [address] [place], [address] ECRCL 26.08 ml/min Normal [facility] Comment on above: Performed By: #### L 500.2500, L100.0100 ####[facility] [address] [place], [address] EST GFR - AA 38 mL/min Low >60 [facility] Comment on above: Result Comment: Afri can Slovenian GFR Calc Performed By: #### L 500.2500, L100.0100 ####[facility] [address] [place], [address] GAP 11 Normal 5-15 [facility] Comment on above: Performed By: #### L 500.2500, L100.0100 ####[facility] [address] [place], [address] GFR/1.73 sq M.predicted among non-blacks MDRD (S/P/Bld) [Vol rate/Area] 32 mL/min/{1.73_m2} Low >60 [facility] Comment on above: Result Comment: Non- GFR Calc Performed By: #### L 500.2500, L100.0100 ####[facility] [address] [place], [address] Glucose [Mass/Vol] 200 mg/dL High 74-106 [facility] Comment on above: Result Comment: Gluc ose result greater than or equal to 200 mg/dLsuggests DIABETES MELLITUS per A.D.A. criteria. Performed By: #### L 500.2500, L100.0100 ####[facility] [address] [place], [address] Potassium [Moles/Vol] 4.4 mmol/L Normal 3.5-5.1 [facility] Comment on above: Performed By: #### L 500.2500, L100.0100 ####[facility] [address] [place], [address] Sodium [Moles/Vol] 142 mmol/L Normal 136-145 [facility] Comment on above: Performed By: #### L 500.2500, L100.0100 ####[facility] [address] [place], [address] Urea nitrogen [Mass/Vol] 91 mg/dL High 7-18 [facility] Comment on above: Performed By: #### L 500.2500, L100.0100 ####[facility] [address] [place], [address] Bedside Glucoseon 11-19-2023 FINGERSTICK GLU 262 mg/dL High 74-106 [facility] Comment on above: Result Comment: MYKE GEMENT OF PATIENT CARE PER NURSING PROTOCOL Performed By: #### L 501.080 ####[facility] [address] [place], [address] FINGERSTICK GLU 142 mg/dL High 74-106 [facility] Comment on above: Result Comment: MYKE GEMENT OF PATIENT CARE PER NURSING PROTOCOL Performed By: #### L 501.080 ####[facility] [address] [place], [address] FINGERSTICK GLU 284 mg/dL High 74-106 [facility] Comment on above: Result Comment: MYKE GEMENT OF PATIENT CARE PER NURSING PROTOCOL Performed By: #### L 501.080 ####[facility] [address] [place], [address] FINGERSTICK GLU 201 mg/dL High 74-106 [facility] Comment on above: Result Comment: MYKE GEMENT OF PATIENT CARE PER NURSING PROTOCOL Performed By: #### L 501.080 ####[facility] [address] [place], [address] FINGERSTICK GLU 289 mg/dL High 74-106 [facility] Comment on above: Result Comment: MYKE GEMENT OF PATIENT CARE PER NURSING PROTOCOL Performed By: #### L 501.080 ####[facility] [address] [place], [address] CBC W/Diff, Automatedon 09-0 PLT EST SLT DEC Normal ADEQ [facility] Comment on above: Performed By: #### L 500.2500, L100.0100 ####[facility] [address] [place], [address] 12 Lead EKGon 11-18-2023 12 Lead EKG Normal [facility] BNP,B-Type NATRIURETIC PEPTI Nico 11-18-2023 Natriuretic peptide B (Bld) [Mass/Vol] 107.6 pg/mL High 0-100 [facility] Comment on above: Performed By: #### L 503.6620 ####[facility] [address] [place], [address] Basic Metabolic Profile (BMP )on 11-18-2023 BUN/CRE 36.3 RATIO High 10-20 [facility] Comment on above: Performed By: #### L 500.2500, L100.0100 ####[facility] [address] [place], [address] CA,Total 8.7 mg/dL Normal 8.5-10.1 [facility] Comment on above: Performed By: #### L 500.2500, L100.0100 ####[facility] [address] [place], [address] Chloride [Moles/Vol] 110 mmol/L High 98-107 [facility] Comment on above: Performed By: #### L 500.2500, L100.0100 ####[facility] [address] [place], [address] CO2 [Moles/Vol] 28.0 mmol/L Normal 21.0-32.0 [facility] Comment on above: Performed By: #### L 500.2500, L100.0100 ####[facility] [address] [place], [address] Creatinine [Mass/Vol] 2.56 mg/dL High 0.70-1.30 [facility] Comment on above: Result Comment: The validity of the calculated GFR GFRAA in patients over70 years has not been determined. Clinical correlation isessential. Performed By: #### L 500.2500, L100.0100 ####[facility] [address] [place], [address] ECRCL 21.65 ml/min Normal [facility] Comment on above: Performed By: #### L 500.2500, L100.0100 ####[facility] [address] [place], [address] EST GFR - AA 31 mL/min Low >60 [facility] Comment on above: Result Comment: Afri can Slovenian GFR Calc Performed By: #### L 500.2500, L100.0100 ####[facility] [address] [place], [address] GAP 6 Normal 5-15 [facility] Comment on above: Performed By: #### L 500.2500, L100.0100 ####[facility] [address] [place], [address] GFR/1.73 sq M.predicted among non-blacks MDRD (S/P/Bld) [Vol rate/Area] 26 mL/min/{1.73_m2} Low >60 [facility] Comment on above: Result Comment: Non- GFR Calc Performed By: #### L 500.2500, L100.0100 ####[facility] [address] [place], [address] Glucose [Mass/Vol] 188 mg/dL High 74-106 [facility] Comment on above: Result Comment: Fast ing Glucose result greater than or equal to 126 mg/dLsuggests DIABETES MELLITUS per A.D.A. criteria. Performed By: #### L 500.2500, L100.0100 ####[facility] [address] [place], [address] Potassium [Moles/Vol] 4.5 mmol/L Normal 3.5-5.1 [facility] Comment on above: Performed By: #### L 500.2500, L100.0100 ####[facility] [address] [place], [address] Sodium [Moles/Vol] 144 mmol/L Normal 136-145 [facility] Comment on above: Performed By: #### L 500.2500, L100.0100 ####[facility] [address] [place], [address] Urea nitrogen [Mass/Vol] 93 mg/dL High 7-18 [facility] Comment on above: Performed By: #### L 500.2500, L100.0100 ####[facility] [address] [place], [address] Bedside Glucoseon 11-18-2023 FINGERSTICK GLU 119 mg/dL High 74-106 [facility] Comment on above: Result Comment: MYKE SAGE OF PATIENT CARE PER NURSING PROTOCOL Performed By: #### L 501.080 ####[facility] [address] [place], [address] CBC W/Diff, Automatedon Absolute Lymph 0.99 X10 3/uL Normal 0.83-4.51 [facility] Comment on above: Performed By: #### L 500.2500, L100.0100 ####[facility] [address] [place], [address] Absolute Neut 5.3 X10 3/uL Normal 2.0-7.7 [facility] Comment on above: Performed By: #### L 500.2500, L100.0100 ####[facility] [address] [place], [address] Basophils/100 WBC (Bld) 0.6 % Normal 0-1 [facility] Comment on above: Performed By: #### L 500.2500, L100.0100 ####[facility] [address] [place], [address] Eosinophils/100 WBC (Bld) 4.3 % Normal 0-5 [facility] Comment on above: Performed By: #### L 500.2500, L100.0100 ####[facility] [address] [place], [address] Erythrocyte distribution width (RBC) [Ratio] 14.3 % Normal 11.6-14.6 [facility] Comment on above: Performed By: #### L 500.2500, L100.0100 ####[facility] [address] [place], [address] Hematocrit (Bld) [Volume fraction] 27.2 % Low 40-54 [facility] Comment on above: Performed By: #### L 500.2500, L100.0100 ####[facility] [address] [place], [address] Hemoglobin (Bld) [Mass/Vol] 8.5 g/dL Low 13.0-16.5 [facility] Comment on above: Performed By: #### L 500.2500, L100.0100 ####[facility] [address] [place], [address] IG% 0.400 Normal 0.0-0.9 [facility] Comment on above: Result Comment: IG% - Immature Granulocytes (promyelocytes, myelocytes andmetamyelocytes) > 1% indicates that a LEFT SHIFT is Present. Performed By: #### L 500.2500, L100.0100 ####[facility] [address] [place], [address] Lymphocytes/100 WBC (Bld) 14.1 % Low 19-41 [facility] Comment on above: Performed By: #### L 500.2500, L100.0100 ####[facility] [address] [place], [address] MCH (RBC) [Entitic mass] 30.5 pg Normal 27.0-32.0 [facility] Comment on above: Performed By: #### L 500.2500, L100.0100 ####[facility] [address] [place], [address] MCHC (RBC) [Mass/Vol] 31.3 g/dL Low 32-36 [facility] Comment on above: Performed By: #### L 500.2500, L100.0100 ####[facility] [address] [place], [address] MCV (RBC) [Entitic vol] 97.5 fL High 80-94 [facility] Comment on above: Performed By: #### L 500.2500, L100.0100 ####[facility] [address] [place], [address] Monocytes/100 WBC (Bld) 6.0 % Normal 0-10 [facility] Comment on above: Performed By: #### L 500.2500, L100.0100 ####[facility] [address] [place], [address] Neutrophils/100 WBC (Bld) 74.6 % High 47-70 [facility] Comment on above: Performed By: #### L 500.2500, L100.0100 ####[facility] [address] [place], [address] Nucleated RBC (Bld) [#/Vol] 0 10*3/uL Normal 0-5 [facility] Comment on above: Performed By: #### L 500.2500, L100.0100 ####[facility] [address] [place], [address] Platelet mean volume (Bld) [Entitic vol] 11.2 fL Normal 6.2-12.0 [facility] Comment on above: Performed By: #### L 500.2500, L100.0100 ####[facility] [address] [place], [address] Platelets (Bld) [#/Vol] 116 10*3/uL Low 150-450 [facility] Comment on above: Performed By: #### L 500.2500, L100.0100 ####[facility] [address] [place], [address] RBC (Bld) [#/Vol] 2.79 10*6/uL Low 4.6-6.2 [facility] Comment on above: Performed By: #### L 500.2500, L100.0100 ####[facility] [address] [place], [address] RDW SD 51.0 fl High 35.1-43.9 [facility] Comment on above: Performed By: #### L 500.2500, L100.0100 ####[facility] [address] [place], [address] WBC (Bld) [#/Vol] 7.0 10*3/uL Normal 4.4-11.0 [facility] Comment on above: Performed By: #### L 500.2500, L100.0100 ####[facility] [address] [place], [address] Chest 1 View (Portable)on Chest 1 View (Portable) Normal [facility] D-Dimer Quantitative (DVT/PE )on 11-18-2023 D-DIMER QUANT 0.83 FEU/ug/m Invalid Interpretation Code 0.27-0.49 [facility] Comment on above: Result Comment: D-Di kassidy ELEVATED (>0.49): Additional studies and clinicalassessments are indicated to conclude diagnosis of:Deep Vein Thrombosis (DVT) or Pulmonary Embolism (PE)CRITICAL VALUE VERIFIED. CALLED TO ANGELICA OSEI11/18/23 1448 Nelly Huynh.RESULTS READ BACK BY SAME. Performed By: #### L 300.8000 ####[facility] [address] [place], [address] Emergency Department Summary on 11-18-2023 Emergency Department Summary Normal [facility] H AND P Exam - Hospitaliston 11-18-2023 H&P Exam - Hospitalist Normal [facility] L501.4020on 11-18-2023 TROPONIN-I HS 35 pg/mL Normal 3.0-78.0 [facility] Comment on above: Result Comment: Sara saleh Note: New Test Units and Gender Specific Reference Ranges. For more information see Policy Stat Procedure [place] High Sensitivity Troponin (TNIH) and attachments. Performed By: #### L 501.4020 ####[facility] [address] [place], [address] L501.5425on 11-18-2023 TROPONIN-I HS 32 pg/mL Normal 3.0-78.0 [facility] Comment on above: Order Comment: 1Y Result Comment: Sara saleh Note: New Test Units and Gender Specific Reference Ranges. For more information see Policy Stat Procedure [place] High Sensitivity Troponin (TNIH) and attachments. Performed By: #### L 501.5425 ####[facility] [address] [place], [address] M100.678on 11-18-2023 M100.678 Pending SARS-CoV-2 (COVID 19) Negative INFLUENZA A Negative INFLUENZA B Negative RSV PCR Negative Normal [facility] Comment on above: Performed By: #### M 100.678 ####[facility] [address] [place], [address] RESPIRATORY PANEL MOLECULARo n 11-18-2023 RP PANEL Normal [facility] Comment on above: Performed By: #### M 100.638 ####[facility] [address] [place], [address] Venous Blood Gason 4 Blood Gas Type DAYANA Normal [facility] Comment on above: Performed By: #### L 9000.0810 ####[facility] [address] [place], [address] CO2 [Moles/Vol] 33 mmol/L Normal 23-33 [facility] Comment on above: Performed By: #### L 9000.0810 ####[facility] [address] [place], [address] FI02 4.0 Normal [facility] Comment on above: Performed By: #### L 9000.0810 ####[facility] [address] [place], [address] HCO3 (Bld) [Moles/Vol] 31 mmol/L High 22-26 [facility] Comment on above: Performed By: #### L 9000.0810 ####[facility] [address] [place], [address] O2 Delivery Dev Cannula Normal [facility] Comment on above: Performed By: #### L 9000.0810 ####[facility] [address] [place], [address] SITE Not entered Normal [facility] Comment on above: Performed By: #### L 9000.0810 ####[facility] [address] [place], [address] VBG BE 5 mmol/L High -1.0-3.5 [facility] Comment on above: Performed By: #### L 9000.0810 ####[facility] [address] [place], [address] VBG pCO2 61.5 mmHg High 41-51 [facility] Comment on above: Performed By: #### L 9000.0810 ####[facility] [address] [place], [address] VBG pH 7.31 Low 7.32-7.42 [facility] Comment on above: Performed By: #### L 9000.0810 ####[facility] [address] [place], [address] VBG PO2 50 mmHg High 25-40 [facility] Comment on above: Performed By: #### L 9000.0810 ####[facility] [address] [place], [address] VBG SO2 80 High 50-70 [facility] Comment on above: Performed By: #### L 9000.0810 ####[facility] [address] [place], [address] Basic Metabolic Profile (BMP )on 11-16-2023 BUN/CRE 30.4 RATIO High 10-20 [facility] Comment on above: Performed By: #### L 501.5200, L501.2300, L500.2500, L100.0500 ####[facility] [address] [place], [address] CA,Total 9.4 mg/dL Normal 8.5-10.1 [facility] Comment on above: Performed By: #### L 501.5200, L501.2300, L500.2500, L100.0500 ####[facility] [address] [place], [address] Chloride [Moles/Vol] 106 mmol/L Normal 98-107 [facility] Comment on above: Performed By: #### L 501.5200, L501.2300, L500.2500, L100.0500 ####[facility] [address] [place], [address] CO2 [Moles/Vol] 28.0 mmol/L Normal 21.0-32.0 [facility] Comment on above: Performed By: #### L 501.5200, L501.2300, L500.2500, L100.0500 ####[facility] [address] [place], [address] Creatinine [Mass/Vol] 2.14 mg/dL High 0.70-1.30 [facility] Comment on above: Result Comment: The validity of the calculated GFR GFRAA in patients over70 years has not been determined. Clinical correlation isessential. Performed By: #### L 501.5200, L501.2300, L500.2500, L100.0500 ####[facility] [address] [place], [address] ECRCL 26.04 ml/min Normal [facility] Comment on above: Performed By: #### L 501.5200, L501.2300, L500.2500, L100.0500 ####[facility] [address] [place], [address] EST GFR - AA 38 mL/min Low >60 [facility] Comment on above: Result Comment: Afri can Slovenian GFR Calc Performed By: #### L 501.5200, L501.2300, L500.2500, L100.0500 ####[facility] [address] [place], [address] GAP 7 Normal 5-15 [facility] Comment on above: Performed By: #### L 501.5200, L501.2300, L500.2500, L100.0500 ####[facility] [address] [place], [address] GFR/1.73 sq M.predicted among non-blacks MDRD (S/P/Bld) [Vol rate/Area] 31 mL/min/{1.73_m2} Low >60 [facility] Comment on above: Result Comment: Non- GFR Calc Performed By: #### L 501.5200, L501.2300, L500.2500, L100.0500 ####[facility] [address] [place], [address] Glucose [Mass/Vol] 122 mg/dL High 74-106 [facility] Comment on above: Result Comment: Fast ing Glucose result from 100 to 125 mg/dLsuggests IMPAIRED HOMEOSTASIS per A.D.A. criteria. Performed By: #### L 501.5200, L501.2300, L500.2500, L100.0500 ####[facility] [address] [place], [address] Potassium [Moles/Vol] 4.3 mmol/L Normal 3.5-5.1 [facility] Comment on above: Performed By: #### L 501.5200, L501.2300, L500.2500, L100.0500 ####[facility] [address] [place], [address] Sodium [Moles/Vol] 141 mmol/L Normal 136-145 [facility] Comment on above: Performed By: #### L 501.5200, L501.2300, L500.2500, L100.0500 ####[facility] [address] [place], [address] Urea nitrogen [Mass/Vol] 65 mg/dL High 7-18 [facility] Comment on above: Performed By: #### L 501.5200, L501.2300, L500.2500, L100.0500 ####[facility] [address] [place], [address] Bedside Glucoseon 11-16-2023 FINGERSTICK GLU 176 mg/dL High 74-106 [facility] Comment on above: Result Comment: MYKE GEMENT OF PATIENT CARE PER NURSING PROTOCOL Performed By: #### L 501.080 ####[facility] [address] [place], [address] FINGERSTICK GLU 158 mg/dL High 74-106 [facility] Comment on above: Result Comment: MYKE GEMENT OF PATIENT CARE PER NURSING PROTOCOL Performed By: #### L 501.080 ####[facility] [address] [place], [address] FINGERSTICK GLU 115 mg/dL High 74-106 [facility] Comment on above: Result Comment: MYKE GEMENT OF PATIENT CARE PER NURSING PROTOCOL Performed By: #### L 501.080 ####[facility] [address] [place], [address] FINGERSTICK GLU 151 mg/dL High 74-106 [facility] Comment on above: Result Comment: MYKE GEMENT OF PATIENT CARE PER NURSING PROTOCOL Performed By: #### L 501.080 ####[facility] [address] [place], [address] CBC-Complete Blood Cnt No Di ffon 11-16-2023 Erythrocyte distribution width (RBC) [Ratio] 14.2 % Normal 11.6-14.6 [facility] Comment on above: Performed By: #### L 501.5200, L501.2300, L500.2500, L100.0500 ####[facility] [address] [place], [address] Hematocrit (Bld) [Volume fraction] 28.1 % Low 40-54 [facility] Comment on above: Performed By: #### L 501.5200, L501.2300, L500.2500, L100.0500 ####[facility] [address] [place], [address] Hemoglobin (Bld) [Mass/Vol] 8.8 g/dL Low 13.0-16.5 [facility] Comment on above: Performed By: #### L 501.5200, L501.2300, L500.2500, L100.0500 ####[facility] [address] [place], [address] MCH (RBC) [Entitic mass] 29.9 pg Normal 27.0-32.0 [facility] Comment on above: Performed By: #### L 501.5200, L501.2300, L500.2500, L100.0500 ####[facility] [address] [place], [address] MCHC (RBC) [Mass/Vol] 31.3 g/dL Low 32-36 [facility] Comment on above: Performed By: #### L 501.5200, L501.2300, L500.2500, L100.0500 ####[facility] [address] [place], [address] MCV (RBC) [Entitic vol] 95.6 fL High 80-94 [facility] Comment on above: Performed By: #### L 501.5200, L501.2300, L500.2500, L100.0500 ####[facility] [address] [place], [address] Platelet mean volume (Bld) [Entitic vol] 10.8 fL Normal 6.2-12.0 [facility] Comment on above: Performed By: #### L 501.5200, L501.2300, L500.2500, L100.0500 ####[facility] [address] [place], [address] Platelets (Bld) [#/Vol] 116 10*3/uL Low 150-450 [facility] Comment on above: Performed By: #### L 501.5200, L501.2300, L500.2500, L100.0500 ####[facility] [address] [place], [address] RBC (Bld) [#/Vol] 2.94 10*6/uL Low 4.6-6.2 [facility] Comment on above: Performed By: #### L 501.5200, L501.2300, L500.2500, L100.0500 ####[facility] [address] [place], [address] RDW SD 48.8 fl High 35.1-43.9 [facility] Comment on above: Performed By: #### L 501.5200, L501.2300, L500.2500, L100.0500 ####[facility] [address] [place], [address] WBC (Bld) [#/Vol] 6.3 10*3/uL Normal 4.4-11.0 [facility] Comment on above: Performed By: #### L 501.5200, L501.2300, L500.2500, L100.0500 ####[facility] [address] [place], [address] Lipid Profileon 11-16-2023 CHOL Normal 200 [facility] Comment on above: Result Comment: Canc elled via OM: MD Ordered Performed By: #### L 500.4100 ####[facility] [address] [place], [address] HDL Normal [facility] Comment on above: Result Comment: Canc elled via OM: MD Ordered Performed By: #### L 500.4100 ####[facility] [address] [place], [address] LDL Normal 0-130 [facility] Comment on above: Result Comment: Canc elled via OM: MD Ordered Performed By: #### L 500.4100 ####[facility] [address] [place], [address] TRIG Normal [facility] Comment on above: Result Comment: Canc elled via OM: MD Ordered Performed By: #### L 500.4100 ####[facility] [address] [place], [address] VLDL Normal 5-40 [facility] Comment on above: Result Comment: Canc elled via OM: MD Ordered Performed By: #### L 500.4100 ####[facility] [address] [place], [address] Magnesiumon 11-16-2023 Magnesium [Mass/Vol] 1.8 mg/dL Normal 1.6-2.6 [facility] Comment on above: Performed By: #### L 501.5200, L501.2300, L500.2500, L100.0500 ####[facility] [address] [place], [address] Phosphoruson 11-16-2023 Phosphate [Mass/Vol] 3.2 mg/dL Normal 2.5-4.9 [facility] Comment on above: Performed By: #### L 501.5200, L501.2300, L500.2500, L100.0500 ####[facility] [address] [place], [address] 12 Lead EKGon 11-15-2023 12 Lead EKG Normal [facility] Bedside Glucoseon 11-15-2023 FINGERSTICK GLU 151 mg/dL High 74-106 [facility] Comment on above: Result Comment: MYKE GEMENT OF PATIENT CARE PER NURSING PROTOCOL Performed By: #### L 501.080 ####[facility] [address] [place], [address] FINGERSTICK GLU 164 mg/dL High -106 [facility] Comment on above: Result Comment: MYKE GEMENT OF PATIENT CARE PER NURSING PROTOCOL Performed By: #### L 501.080 ####[facility] [address] [place], [address] FINGERSTICK GLU 113 mg/dL High -106 [facility] Comment on above: Result Comment: MYKE GEMENT OF PATIENT CARE PER NURSING PROTOCOL Performed By: #### L 501.080 ####[facility] [address] [place], [address] FINGERSTICK GLU 173 mg/dL High -106 [facility] Comment on above: Result Comment: MYKE GEMENT OF PATIENT CARE PER NURSING PROTOCOL Performed By: #### L 501.080 ####[facility] [address] [place], [address] CBC W/Diff, Automatedon 0 Absolute Lymph 0.90 X10 3/uL Normal 0.83-4.51 [facility] Comment on above: Performed By: #### L 100.0100, L501.9985, L501.9520, L500.4100, L500.4050 ####[facility] [address] [place], [address] Absolute Neut 5.2 X10 3/uL Normal 2.0-7.7 [facility] Comment on above: Performed By: #### L 100.0100, L501.9985, L501.9520, L500.4100, L500.4050 ####[facility] [address] [place], [address] Basophils/100 WBC (Bld) 0.4 % Normal 0-1 [facility] Comment on above: Performed By: #### L 100.0100, L501.9985, L501.9520, L500.4100, L500.4050 ####[facility] [address] [place], [address] Eosinophils/100 WBC (Bld) 3.2 % Normal 0-5 [facility] Comment on above: Performed By: #### L 100.0100, L501.9985, L501.9520, L500.4100, L500.4050 ####[facility] [address] [place], [address] Erythrocyte distribution width (RBC) [Ratio] 14.0 % Normal 11.6-14.6 [facility] Comment on above: Performed By: #### L 100.0100, L501.9985, L501.9520, L500.4100, L500.4050 ####[facility] [address] [place], [address] Hematocrit (Bld) [Volume fraction] 27.7 % Low 40-54 [facility] Comment on above: Performed By: #### L 100.0100, L501.9985, L501.9520, L500.4100, L500.4050 ####[facility] [address] [place], [address] Hemoglobin (Bld) [Mass/Vol] 8.8 g/dL Low 13.0-16.5 [facility] Comment on above: Performed By: #### L 100.0100, L501.9985, L501.9520, L500.4100, L500.4050 ####[facility] [address] [place], [address] IG% 0.300 Normal 0.0-0.9 [facility] Comment on above: Result Comment: IG% - Immature Granulocytes (promyelocytes, myelocytes andmetamyelocytes) > 1% indicates that a LEFT SHIFT is Present. Performed By: #### L 100.0100, L501.9985, L501.9520, L500.4100, L500.4050 ####[facility] [address] [place], [address] Lymphocytes/100 WBC (Bld) 13.2 % Low 19-41 [facility] Comment on above: Performed By: #### L 100.0100, L501.9985, L501.9520, L500.4100, L500.4050 ####[facility] [address] [place], [address] MCH (RBC) [Entitic mass] 30.7 pg Normal 27.0-32.0 [facility] Comment on above: Performed By: #### L 100.0100, L501.9985, L501.9520, L500.4100, L500.4050 ####[facility] [address] [place], [address] MCHC (RBC) [Mass/Vol] 31.8 g/dL Low 32-36 [facility] Comment on above: Performed By: #### L 100.0100, L501.9985, L501.9520, L500.4100, L500.4050 ####[facility] [address] [place], [address] MCV (RBC) [Entitic vol] 96.5 fL High 80-94 [facility] Comment on above: Performed By: #### L 100.0100, L501.9985, L501.9520, L500.4100, L500.4050 ####[facility] [address] [place], [address] Monocytes/100 WBC (Bld) 6.0 % Normal 0-10 [facility] Comment on above: Performed By: #### L 100.0100, L501.9985, L501.9520, L500.4100, L500.4050 ####[facility] [address] [place], [address] Neutrophils/100 WBC (Bld) 76.9 % High 47-70 [facility] Comment on above: Performed By: #### L 100.0100, L501.9985, L501.9520, L500.4100, L500.4050 ####[facility] [address] [place], [address] Nucleated RBC (Bld) [#/Vol] 0 10*3/uL Normal 0-5 [facility] Comment on above: Performed By: #### L 100.0100, L501.9985, L501.9520, L500.4100, L500.4050 ####[facility] [address] [place], [address] Platelet mean volume (Bld) [Entitic vol] 10.3 fL Normal 6.2-12.0 [facility] Comment on above: Performed By: #### L 100.0100, L501.9985, L501.9520, L500.4100, L500.4050 ####[facility] [address] [place], [address] Platelets (Bld) [#/Vol] 106 10*3/uL Low 150-450 [facility] Comment on above: Performed By: #### L 100.0100, L501.9985, L501.9520, L500.4100, L500.4050 ####[facility] [address] [place], [address] RBC (Bld) [#/Vol] 2.87 10*6/uL Low 4.6-6.2 [facility] Comment on above: Performed By: #### L 100.0100, L501.9985, L501.9520, L500.4100, L500.4050 ####[facility] [address] [place], [address] RDW SD 48.1 fl High 35.1-43.9 [facility] Comment on above: Performed By: #### L 100.0100, L501.9985, L501.9520, L500.4100, L500.4050 ####[facility] [address] [place], [address] WBC (Bld) [#/Vol] 6.8 10*3/uL Normal 4.4-11.0 [facility] Comment on above: Performed By: #### L 100.0100, L501.9985, L501.9520, L500.4100, L500.4050 ####[facility] [address] [place], [address] Chest 1 View (Portable)on Chest 1 View (Portable) Normal [facility] Comprehensive Metabolic Prof ilon 11-15-2023 Albumin [Mass/Vol] 3.2 g/dL Normal 3.2-5.0 [facility] Comment on above: Performed By: #### L 100.0100, L501.9985, L501.9520, L500.4100, L500.4050 ####[facility] [address] [place], [address] Albumin/Globulin [Mass ratio] 0.9 {ratio} Normal 0.9-2.4 [facility] Comment on above: Performed By: #### L 100.0100, L501.9985, L501.9520, L500.4100, L500.4050 ####[facility] [address] [place], [address] ALK P 79 U/L Normal 45-117 [facility] Comment on above: Performed By: #### L 100.0100, L501.9985, L501.9520, L500.4100, L500.4050 ####[facility] [address] [place], [address] ALT [Catalytic activity/Vol] 14 U/L Low 16-61 [facility] Comment on above: Performed By: #### L 100.0100, L501.9985, L501.9520, L500.4100, L500.4050 ####[facility] [address] [place], [address] AST [Catalytic activity/Vol] 10 U/L Low 15-37 [facility] Comment on above: Performed By: #### L 100.0100, L501.9985, L501.9520, L500.4100, L500.4050 ####[facility] [address] [place], [address] Bilirubin [Mass/Vol] 0.50 mg/dL Normal 0.20-1.00 [facility] Comment on above: Result Comment: For patients on eltrombopag therapy, use of Dimension [place] TBIL is not recommended. Performed By: #### L 100.0100, L501.9985, L501.9520, L500.4100, L500.4050 ####[facility] [address] [place], [address] BUN/CRE 26.5 RATIO High 10-20 [facility] Comment on above: Performed By: #### L 100.0100, L501.9985, L501.9520, L500.4100, L500.4050 ####[facility] [address] [place], [address] CA,Total 8.9 mg/dL Normal 8.5-10.1 [facility] Comment on above: Performed By: #### L 100.0100, L501.9985, L501.9520, L500.4100, L500.4050 ####[facility] [address] [place], [address] Chloride [Moles/Vol] 109 mmol/L High 98-107 [facility] Comment on above: Performed By: #### L 100.0100, L501.9985, L501.9520, L500.4100, L500.4050 ####[facility] [address] [place], [address] CO2 [Moles/Vol] 30.0 mmol/L Normal 21.0-32.0 [facility] Comment on above: Performed By: #### L 100.0100, L501.9985, L501.9520, L500.4100, L500.4050 ####[facility] [address] [place], [address] Creatinine [Mass/Vol] 2.26 mg/dL High 0.70-1.30 [facility] Comment on above: Result Comment: The validity of the calculated GFR GFRAA in patients over70 years has not been determined. Clinical correlation isessential. Performed By: #### L 100.0100, L501.9985, L501.9520, L500.4100, L500.4050 ####[facility] [address] [place], [address] ECRCL 24.77 ml/min Normal [facility] Comment on above: Performed By: #### L 100.0100, L501.9985, L501.9520, L500.4100, L500.4050 ####[facility] [address] [place], [address] EST GFR - AA 36 mL/min Low >60 [facility] Comment on above: Result Comment: Afri can [place] GFR Calc Performed By: #### L 100.0100, L501.9985, L501.9520, L500.4100, L500.4050 ####[facility] [address] [place], [address] GAP 4 Low 5-15 [facility] Comment on above: Performed By: #### L 100.0100, L501.9985, L501.9520, L500.4100, L500.4050 ####[facility] [address] [place], [address] GFR/1.73 sq M.predicted among non-blacks MDRD (S/P/Bld) [Vol rate/Area] 30 mL/min/{1.73_m2} Low >60 [facility] Comment on above: Result Comment: Non- GFR Calc Performed By: #### L 100.0100, L501.9985, L501.9520, L500.4100, L500.4050 ####[facility] [address] [place], [address] Globulin (S) [Mass/Vol] 3.6 g/dL Normal 2.2-4.2 [facility] Comment on above: Performed By: #### L 100.0100, L501.9985, L501.9520, L500.4100, L500.4050 ####[facility] [address] [place], [address] Glucose [Mass/Vol] 174 mg/dL High 74-106 [facility] Comment on above: Result Comment: Fast ing Glucose result greater than or equal to 126 mg/dLsuggests DIABETES MELLITUS per A.D.A. criteria. Performed By: #### L 100.0100, L501.9985, L501.9520, L500.4100, L500.4050 ####[facility] [address] [place], [address] Potassium [Moles/Vol] 4.6 mmol/L Normal 3.5-5.1 [facility] Comment on above: Performed By: #### L 100.0100, L501.9985, L501.9520, L500.4100, L500.4050 ####[facility] [address] [place], [address] Sodium [Moles/Vol] 143 mmol/L Normal 136-145 [facility] Comment on above: Performed By: #### L 100.0100, L501.9985, L501.9520, L500.4100, L500.4050 ####[facility] [address] [place], [address] T PROT 6.8 g/dL Normal 6.4-8.2 [facility] Comment on above: Performed By: #### L 100.0100, L501.9985, L501.9520, L500.4100, L500.4050 ####[facility] [address] [place], [address] Urea nitrogen [Mass/Vol] 60 mg/dL High 7-18 [facility] Comment on above: Performed By: #### L 100.0100, L501.9985, L501.9520, L500.4100, L500.4050 ####[facility] [address] [place], [address] Echo Complete W/ Contraston 11-15-2023 Echo Complete W/ Contrast Normal [facility] Hemoglobin A1con 11-15-2023 HbA1c (Bld) [Mass fraction] 5.7 % High 3.8-5.6 [facility] Comment on above: Result Comment: Norm al < 5.7 % Prediabetic 5.7 - 6.4 % Diabetic >or= 6.5 % Please note range changes. Performed By: #### L 100.0100, L501.9985, L501.9520, L500.4100, L500.4050 ####[facility] [address] [place], [address] L501.4020on 11-15-2023 TROPONIN-I HS 150 pg/mL Invalid Interpretation Code 3.0-78.0 [facility] Comment on above: Order Comment: 'TROP ' Serial specimen #1, #2 or #3: 3 Result Comment: Crit ical Result(s) Called at: 05:09:09 11/15/2023 by: Santa. VADIM AN RN PCU. Results read back by same. Please Note: New Test Units and Gender Specific Reference Ranges. For more information see Policy Stat Procedure [place] High Sensitivity Troponin (TNIH) and attachments. Performed By: #### L 501.4020 ####[facility] [address] [place], [address] TROPONIN-I HS 119 pg/mL High 3.0-78.0 [facility] Comment on above: Order Comment: 'TROP ' Serial specimen #1, #2 or #3: 2 Result Comment: Plea Note: New Test Units and Gender Specific Reference Ranges. For more information see Policy Stat Procedure [place] High Sensitivity Troponin (TNIH) and attachments. Performed By: #### L 501.4020 ####[facility] [address] [place], [address] Lipid Profileon 11-15-2023 Cholesterol [Mass/Vol] 170 mg/dL Normal 200 [facility] Comment on above: Result Comment: <200 mg/dL Desirable 200-240 mg/dL Borderline >240 mg/dL High Risk Performed By: #### L 100.0100, L501.9985, L501.9520, L500.4100, L500.4050 ####[facility] [address] [place], [address] Cholesterol in HDL [Mass/Vol] 36 mg/dL Low [facility] Comment on above: Result Comment: The drugs N-Acetylcysteine and Metamizole may falselydepress this assay. Reference Range HDL <40 mg/dL Low HDL Cholesterol HDL >or= 60 mg/dL High HDL Cholesterol Performed By: #### L 100.0100, L501.9985, L501.9520, L500.4100, L500.4050 ####[facility] [address] [place], [address] Cholesterol in LDL [Mass/Vol] 101 mg/dL Normal 0-130 [facility] Comment on above: Performed By: #### L 100.0100, L501.9985, L501.9520, L500.4100, L500.4050 ####[facility] [address] [place], [address] Cholesterol in VLDL [Mass/Vol] 33 mg/dL Normal 5-40 [facility] Comment on above: Performed By: #### L 100.0100, L501.9985, L501.9520, L500.4100, L500.4050 ####[facility] [address] [place], [address] Triglyceride [Mass/Vol] 163 mg/dL Normal [facility] Comment on above: Result Comment: The drugs N-Acetylcysteine and Metamizole may falselydepress this assay.Serum Triglycerides Reference Interval Normal <150 mg/dL Borderline high 150 - 199 mg/dL High 200 - 499 mg/dL Very High > or = 500 mg/dL Performed By: #### L 100.0100, L501.9985, L501.9520, L500.4100, L500.4050 ####[facility] [address] [place], [address] Magnesiumon 11-15-2023 Magnesium [Mass/Vol] 1.8 mg/dL Normal 1.6-2.6 [facility] Comment on above: Order Comment: Comme nts: may add to ED labs Performed By: #### L 492.3311, L501.5200 ####[facility] [address] [place], [address] Procalcitoninon 11-15-2023 Procalcitonin 0.16 ng/mL High 0.00-0.09 [facility] Comment on above: Result Comment: A [...] obtained. Performed By: #### L 509.7000, L501.5200 ####[facility] [address] [place], [address] Thyroid Stim Hormone (TSH)on 11-15-2023 TSH 2.800 uIU/mL Normal 0.358-3.740 [facility] Comment on above: Performed By: #### L 100.0100, L501.9985, L501.9520, L500.4100, L500.4050 ####[facility] [address] [place], [address] 12 Lead EKGon 11-14-2023 12 Lead EKG Normal [facility] BNP,B-Type NATRIURETIC PEPTI Nico 11-14-2023 Natriuretic peptide B (Bld) [Mass/Vol] 362.0 pg/mL High 0-100 [facility] Comment on above: Performed By: #### L 500.4050, L503.6620, L100.0100, L501.4020 ####[facility] [address] [place], [address] CBC W/Diff, Automatedon 09-0 4-4 Absolute Lymph 1.19 X10 3/uL Normal 0.83-4.51 [facility] Comment on above: Performed By: #### L 500.4050, L503.6620, L100.0100, L501.4020 ####[facility] [address] [place], [address] Absolute Neut 3.7 X10 3/uL Normal 2.0-7.7 [facility] Comment on above: Performed By: #### L 500.4050, L503.6620, L100.0100, L501.4020 ####[facility] [address] [place], [address] Basophils/100 WBC (Bld) 0.7 % Normal 0-1 [facility] Comment on above: Performed By: #### L 500.4050, L503.6620, L100.0100, L501.4020 ####[facility] [address] [place], [address] Eosinophils/100 WBC (Bld) 4.5 % Normal 0-5 [facility] Comment on above: Performed By: #### L 500.4050, L503.6620, L100.0100, L501.4020 ####[facility] [address] [place], [address] Erythrocyte distribution width (RBC) [Ratio] 14.0 % Normal 11.6-14.6 [facility] Comment on above: Performed By: #### L 500.4050, L503.6620, L100.0100, L501.4020 ####[facility] [address] [place], [address] Hematocrit (Bld) [Volume fraction] 26.7 % Low 40-54 [facility] Comment on above: Performed By: #### L 500.4050, L503.6620, L100.0100, L501.4020 ####[facility] [address] [place], [address] Hemoglobin (Bld) [Mass/Vol] 8.2 g/dL Low 13.0-16.5 [facility] Comment on above: Performed By: #### L 500.4050, L503.6620, L100.0100, L501.4020 ####[facility] [address] [place], [address] IG% 0.300 Normal 0.0-0.9 [facility] Comment on above: Result Comment: IG% - Immature Granulocytes (promyelocytes, myelocytes andmetamyelocytes) > 1% indicates that a LEFT SHIFT is Present. Performed By: #### L 500.4050, L503.6620, L100.0100, L501.4020 ####[facility] [address] [place], [address] Lymphocytes/100 WBC (Bld) 20.7 % Normal 19-41 [facility] Comment on above: Performed By: #### L 500.4050, L503.6620, L100.0100, L501.4020 ####[facility] [address] [place], [address] MCH (RBC) [Entitic mass] 29.4 pg Normal 27.0-32.0 [facility] Comment on above: Performed By: #### L 500.4050, L503.6620, L100.0100, L501.4020 ####[facility] [address] [place], [address] MCHC (RBC) [Mass/Vol] 30.7 g/dL Low 32-36 [facility] Comment on above: Performed By: #### L 500.4050, L503.6620, L100.0100, L501.4020 ####[facility] [address] [place], [address] MCV (RBC) [Entitic vol] 95.7 fL High 80-94 [facility] Comment on above: Performed By: #### L 500.4050, L503.6620, L100.0100, L501.4020 ####[facility] [address] [place], [address] Monocytes/100 WBC (Bld) 9.2 % Normal 0-10 [facility] Comment on above: Performed By: #### L 500.4050, L503.6620, L100.0100, L501.4020 ####[facility] [address] [place], [address] Neutrophils/100 WBC (Bld) 64.6 % Normal 47-70 [facility] Comment on above: Performed By: #### L 500.4050, L503.6620, L100.0100, L501.4020 ####[facility] [address] [place], [address] Nucleated RBC (Bld) [#/Vol] 0 10*3/uL Normal 0-5 [facility] Comment on above: Performed By: #### L 500.4050, L503.6620, L100.0100, L501.4020 ####[facility] [address] [place], [address] Platelet mean volume (Bld) [Entitic vol] 10.9 fL Normal 6.2-12.0 [facility] Comment on above: Performed By: #### L 500.4050, L503.6620, L100.0100, L501.4020 ####[facility] [address] [place], [address] Platelets (Bld) [#/Vol] 115 10*3/uL Low 150-450 [facility] Comment on above: Performed By: #### L 500.4050, L503.6620, L100.0100, L501.4020 ####[facility] [address] [place], [address] RBC (Bld) [#/Vol] 2.79 10*6/uL Low 4.6-6.2 [facility] Comment on above: Performed By: #### L 500.4050, L503.6620, L100.0100, L501.4020 ####[facility] [address] [place], [address] RDW SD 48.0 fl High 35.1-43.9 [facility] Comment on above: Performed By: #### L 500.4050, L503.6620, L100.0100, L501.4020 ####[facility] [address] [place], [address] WBC (Bld) [#/Vol] 5.7 10*3/uL Normal 4.4-11.0 [facility] Comment on above: Performed By: #### L 500.4050, L503.6620, L100.0100, L501.4020 ####[facility] [address] [place], [address] Chest 1 View (Portable)on Chest 1 View (Portable) Normal [facility] Comprehensive Metabolic Prof ilon 11-14-2023 Albumin [Mass/Vol] 3.1 g/dL Low 3.2-5.0 [facility] Comment on above: Order Comment: 'TROP ' Serial specimen #1, #2 or #3: 1 Performed By: #### L 500.4050, L503.6620, L100.0100, L501.4020 ####[facility] [address] [place], [address] Albumin/Globulin [Mass ratio] 0.9 {ratio} Normal 0.9-2.4 [facility] Comment on above: Order Comment: 'TROP ' Serial specimen #1, #2 or #3: 1 Performed By: #### L 500.4050, L503.6620, L100.0100, L501.4020 ####[facility] [address] [place], [address] ALK P 80 U/L Normal 45-117 [facility] Comment on above: Order Comment: 'TROP ' Serial specimen #1, #2 or #3: 1 Performed By: #### L 500.4050, L503.6620, L100.0100, L501.4020 ####[facility] [address] [place], [address] ALT [Catalytic activity/Vol] 17 U/L Normal 16-61 [facility] Comment on above: Order Comment: 'TROP ' Serial specimen #1, #2 or #3: 1 Performed By: #### L 500.4050, L503.6620, L100.0100, L501.4020 ####[facility] [address] [place], [address] AST [Catalytic activity/Vol] 9 U/L Low 15-37 [facility] Comment on above: Order Comment: 'TROP ' Serial specimen #1, #2 or #3: 1 Performed By: #### L 500.4050, L503.6620, L100.0100, L501.4020 ####[facility] [address] [place], [address] Bilirubin [Mass/Vol] 0.60 mg/dL Normal 0.20-1.00 [facility] Comment on above: Order Comment: 'TROP ' Serial specimen #1, #2 or #3: 1 Result Comment: For patients on eltrombopag therapy, use of Dimension [place] TBIL is not recommended. Performed By: #### L 500.4050, L503.6620, L100.0100, L501.4020 ####[facility] [address] [place], [address] BUN/CRE 24.1 RATIO High 10-20 [facility] Comment on above: Order Comment: 'TROP ' Serial specimen #1, #2 or #3: 1 Performed By: #### L 500.4050, L503.6620, L100.0100, L501.4020 ####[facility] [address] [place], [address] CA,Total 9.0 mg/dL Normal 8.5-10.1 [facility] Comment on above: Order Comment: 'TROP ' Serial specimen #1, #2 or #3: 1 Performed By: #### L 500.4050, L503.6620, L100.0100, L501.4020 ####[facility] [address] [place], [address] Chloride [Moles/Vol] 112 mmol/L High 98-107 [facility] Comment on above: Order Comment: 'TROP ' Serial specimen #1, #2 or #3: 1 Performed By: #### L 500.4050, L503.6620, L100.0100, L501.4020 ####[facility] [address] [place], [address] CO2 [Moles/Vol] 28.0 mmol/L Normal 21.0-32.0 [facility] Comment on above: Order Comment: 'TROP ' Serial specimen #1, #2 or #3: 1 Performed By: #### L 500.4050, L503.6620, L100.0100, L501.4020 ####[facility] [address] [place], [address] Creatinine [Mass/Vol] 2.41 mg/dL High 0.70-1.30 [facility] Comment on above: Order Comment: 'TROP ' Serial specimen #1, #2 or #3: 1 Result Comment: The validity of the calculated GFR GFRAA in patients over70 years has not been determined. Clinical correlation isessential. Performed By: #### L 500.4050, L503.6620, L100.0100, L501.4020 ####[facility] [address] [place], [address] EST GFR - AA 33 mL/min Low >60 [facility] Comment on above: Order Comment: 'TROP ' Serial specimen #1, #2 or #3: 1 Result Comment: Afri can [place]ian GFR Calc Performed By: #### L 500.4050, L503.6620, L100.0100, L501.4020 ####[facility] [address] [place], [address] GAP 5 Normal 5-15 [facility] Comment on above: Order Comment: 'TROP ' Serial specimen #1, #2 or #3: 1 Performed By: #### L 500.4050, L503.6620, L100.0100, L501.4020 ####[facility] [address] [place], [address] GFR/1.73 sq M.predicted among non-blacks MDRD (S/P/Bld) [Vol rate/Area] 27 mL/min/{1.73_m2} Low >60 [facility] Comment on above: Order Comment: 'TROP ' Serial specimen #1, #2 or #3: 1 Result Comment: Non- GFR Calc Performed By: #### L 500.4050, L503.6620, L100.0100, L501.4020 ####[facility] [address] [place], [address] Globulin (S) [Mass/Vol] 3.6 g/dL Normal 2.2-4.2 [facility] Comment on above: Order Comment: 'TROP ' Serial specimen #1, #2 or #3: 1 Performed By: #### L 500.4050, L503.6620, L100.0100, L501.4020 ####[facility] [address] [place], [address] Glucose [Mass/Vol] 87 mg/dL Normal 74-106 [facility] Comment on above: Order Comment: 'TROP ' Serial specimen #1, #2 or #3: 1 Performed By: #### L 500.4050, L503.6620, L100.0100, L501.4020 ####[facility] [address] [place], [address] Potassium [Moles/Vol] 4.8 mmol/L Normal 3.5-5.1 [facility] Comment on above: Order Comment: 'TROP ' Serial specimen #1, #2 or #3: 1 Performed By: #### L 500.4050, L503.6620, L100.0100, L501.4020 ####[facility] [address] [place], [address] Sodium [Moles/Vol] 145 mmol/L Normal 136-145 [facility] Comment on above: Order Comment: 'TROP ' Serial specimen #1, #2 or #3: 1 Performed By: #### L 500.4050, L503.6620, L100.0100, L501.4020 ####[facility] [address] [place], [address] T PROT 6.7 g/dL Normal 6.4-8.2 [facility] Comment on above: Order Comment: 'TROP ' Serial specimen #1, #2 or #3: 1 Performed By: #### L 500.4050, L503.6620, L100.0100, L501.4020 ####[facility] [address] [place], [address] Urea nitrogen [Mass/Vol] 58 mg/dL High 7-18 [facility] Comment on above: Order Comment: 'TROP ' Serial specimen #1, #2 or #3: 1 Performed By: #### L 500.4050, L503.6620, L100.0100, L501.4020 ####[facility] [address] [place], [address] Emergency Department Summary on 11-14-2023 Emergency Department Summary Normal [facility] H AND P Exam - Hospitaliston 11-14-2023 H&P Exam - Hospitalist Normal [facility] L501.4020on 11-14-2023 TROPONIN-I HS 123 pg/mL Invalid Interpretation Code 3.0-78.0 [facility] Comment on above: Order Comment: 'TROP ' Serial specimen #1, #2 or #3: 1 Result Comment: Sara saleh Note: New Test Units and Gender Specific Reference Ranges. For more information see Policy Stat Procedure [place] High Sensitivity Troponin (TNIH) and attachments. Performed By: #### L 500.4050, L503.6620, L100.0100, L501.4020 ####[facility] [address] [place], [address] CBC W/Diff, Automatedon 10-11 Absolute Lymph 1.30 X10 3/uL Normal 0.83-4.51 [facility] Comment on above: Performed By: #### L 100.0100, L500.4050, L500.4100, L501.9985 ####[facility] [address] [place], [address] Absolute Neut 4.8 X10 3/uL Normal 2.0-7.7 [facility] Comment on above: Performed By: #### L 100.0100, L500.4050, L500.4100, L501.9985 ####[facility] [address] [place], [address] Basophils/100 WBC (Bld) 0.4 % Normal 0-1 [facility] Comment on above: Performed By: #### L 100.0100, L500.4050, L500.4100, L501.9985 ####[facility] [address] [place], [address] Eosinophils/100 WBC (Bld) 4.6 % Normal 0-5 [facility] Comment on above: Performed By: #### L 100.0100, L500.4050, L500.4100, L501.9985 ####[facility] [address] [place], [address] Erythrocyte distribution width (RBC) [Ratio] 13.0 % Normal 11.6-14.6 [facility] Comment on above: Performed By: #### L 100.0100, L500.4050, L500.4100, L501.9985 ####[facility] [address] [place], [address] Hematocrit (Bld) [Volume fraction] 27.3 % Low 40-54 [facility] Comment on above: Performed By: #### L 100.0100, L500.4050, L500.4100, L501.9985 ####[facility] [address] [place], [address] Hemoglobin (Bld) [Mass/Vol] 8.5 g/dL Low 13.0-16.5 [facility] Comment on above: Performed By: #### L 100.0100, L500.4050, L500.4100, L501.9985 ####[facility] [address] [place], [address] IG% 0.600 Normal 0.0-0.9 [facility] Comment on above: Result Comment: IG% - Immature Granulocytes (promyelocytes, myelocytes andmetamyelocytes) > 1% indicates that a LEFT SHIFT is Present. Performed By: #### L 100.0100, L500.4050, L500.4100, L501.9985 ####[facility] [address] [place], [address] Lymphocytes/100 WBC (Bld) 18.7 % Low 19-41 [facility] Comment on above: Performed By: #### L 100.0100, L500.4050, L500.4100, L501.9985 ####[facility] [address] [place], [address] MCH (RBC) [Entitic mass] 29.3 pg Normal 27.0-32.0 [facility] Comment on above: Performed By: #### L 100.0100, L500.4050, L500.4100, L501.9985 ####[facility] [address] [place], [address] MCHC (RBC) [Mass/Vol] 31.1 g/dL Low 32-36 [facility] Comment on above: Performed By: #### L 100.0100, L500.4050, L500.4100, L501.9985 ####[facility] [address] [place], [address] MCV (RBC) [Entitic vol] 94.1 fL High 80-94 [facility] Comment on above: Performed By: #### L 100.0100, L500.4050, L500.4100, L501.9985 ####[facility] [address] [place], [address] Monocytes/100 WBC (Bld) 7.2 % Normal 0-10 [facility] Comment on above: Performed By: #### L 100.0100, L500.4050, L500.4100, L501.9985 ####[facility] [address] [place], [address] Neutrophils/100 WBC (Bld) 68.5 % Normal 47-70 [facility] Comment on above: Performed By: #### L 100.0100, L500.4050, L500.4100, L501.9985 ####[facility] [address] [place], [address] Nucleated RBC (Bld) [#/Vol] 0 10*3/uL Normal 0-5 [facility] Comment on above: Performed By: #### L 100.0100, L500.4050, L500.4100, L501.9985 ####[facility] [address] [place], [address] Platelet mean volume (Bld) [Entitic vol] 11.5 fL Normal 6.2-12.0 [facility] Comment on above: Performed By: #### L 100.0100, L500.4050, L500.4100, L501.9985 ####[facility] [address] [place], [address] Platelets (Bld) [#/Vol] 116 10*3/uL Low 150-450 [facility] Comment on above: Performed By: #### L 100.0100, L500.4050, L500.4100, L501.9985 ####[facility] [address] [place], [address] RBC (Bld) [#/Vol] 2.90 10*6/uL Low 4.6-6.2 [facility] Comment on above: Performed By: #### L 100.0100, L500.4050, L500.4100, L501.9985 ####[facility] [address] [place], [address] RDW SD 44.3 fl High 35.1-43.9 [facility] Comment on above: Performed By: #### L 100.0100, L500.4050, L500.4100, L501.9985 ####[facility] [address] [place], [address] WBC (Bld) [#/Vol] 7.0 10*3/uL Normal 4.4-11.0 [facility] Comment on above: Performed By: #### L 100.0100, L500.4050, L500.4100, L501.9985 ####[facility] [address] [place], [address] Comprehensive Metabolic [facility] ilon 11-07-2023 Albumin [Mass/Vol] 3.1 g/dL Low 3.2-5.0 [facility] Comment on above: Performed By: #### L 100.0100, L500.4050, L500.4100, L501.9985 ####[facility] [address] [place], [address] Albumin/Globulin [Mass ratio] 0.9 {ratio} Normal 0.9-2.4 [facility] Comment on above: Performed By: #### L 100.0100, L500.4050, L500.4100, L501.9985 ####[facility] [address] [place], [address] ALK P 70 U/L Normal 45-117 [facility] Comment on above: Performed By: #### L 100.0100, L500.4050, L500.4100, L501.9985 ####[facility] [address] [place], [address] ALT [Catalytic activity/Vol] 10 U/L Low 16-61 [facility] Comment on above: Performed By: #### L 100.0100, L500.4050, L500.4100, L501.9985 ####[facility] [address] [place], [address] AST [Catalytic activity/Vol] 15 U/L Normal 15-37 [facility] Comment on above: Performed By: #### L 100.0100, L500.4050, L500.4100, L501.9985 ####[facility] [address] [place], [address] Bilirubin [Mass/Vol] 0.40 mg/dL Normal 0.20-1.00 [facility] Comment on above: Result Comment: For patients on eltrombopag therapy, use of Dimension [place] TBIL is not recommended. Performed By: #### L 100.0100, L500.4050, L500.4100, L501.9985 ####[facility] [address] [place], [address] BUN/CRE 29.8 RATIO High 10-20 [facility] Comment on above: Performed By: #### L 100.0100, L500.4050, L500.4100, L501.9985 ####[facility] [address] [place], [address] CA,Total 8.5 mg/dL Normal 8.5-10.1 [facility] Comment on above: Performed By: #### L 100.0100, L500.4050, L500.4100, L501.9985 ####[facility] [address] [place], [address] Chloride [Moles/Vol] 110 mmol/L High 98-107 [facility] Comment on above: Performed By: #### L 100.0100, L500.4050, L500.4100, L501.9985 ####[facility] [address] [place], [address] CO2 [Moles/Vol] 27.0 mmol/L Normal 21.0-32.0 [facility] Comment on above: Performed By: #### L 100.0100, L500.4050, L500.4100, L501.9985 ####[facility] [address] [place], [address] Creatinine [Mass/Vol] 1.98 mg/dL High 0.70-1.30 [facility] Comment on above: Result Comment: The validity of the calculated GFR GFRAA in patients over70 years has not been determined. Clinical correlation isessential. Performed By: #### L 100.0100, L500.4050, L500.4100, L501.9985 ####[facility] [address] [place], [address] EST GFR - AA 42 mL/min Low >60 [facility] Comment on above: Result Comment: Afri can [place]ian GFR Calc Performed By: #### L 100.0100, L500.4050, L500.4100, L501.9985 ####[facility] [address] [place], [address] GAP 8 Normal 5-15 [facility] Comment on above: Performed By: #### L 100.0100, L500.4050, L500.4100, L501.9985 ####[facility] [address] [place], [address] GFR/1.73 sq M.predicted among non-blacks MDRD (S/P/Bld) [Vol rate/Area] 34 mL/min/{1.73_m2} Low >60 [facility] Comment on above: Result Comment: Non- GFR Calc Performed By: #### L 100.0100, L500.4050, L500.4100, L501.9985 ####[facility] [address] [place], [address] Globulin (S) [Mass/Vol] 3.6 g/dL Normal 2.2-4.2 [facility] Comment on above: Performed By: #### L 100.0100, L500.4050, L500.4100, L501.9985 ####[facility] [address] [place], [address] Glucose [Mass/Vol] 133 mg/dL High 74-106 [facility] Comment on above: Result Comment: Fast ing Glucose result greater than or equal to 126 mg/dLsuggests DIABETES MELLITUS per A.D.A. criteria. Performed By: #### L 100.0100, L500.4050, L500.4100, L501.9985 ####[facility] [address] [place], [address] Potassium [Moles/Vol] 4.5 mmol/L Normal 3.5-5.1 [facility] Comment on above: Performed By: #### L 100.0100, L500.4050, L500.4100, L501.9985 ####[facility] [address] [place], [address] Sodium [Moles/Vol] 145 mmol/L Normal 136-145 [facility] Comment on above: Performed By: #### L 100.0100, L500.4050, L500.4100, L501.9985 ####[facility] [address] [place], [address] T PROT 6.7 g/dL Normal 6.4-8.2 [facility] Comment on above: Performed By: #### L 100.0100, L500.4050, L500.4100, L501.9985 ####[facility] [address] [place], [address] Urea nitrogen [Mass/Vol] 59 mg/dL High 7-18 [facility] Comment on above: Performed By: #### L 100.0100, L500.4050, L500.4100, L501.9985 ####[facility] [address] [place], [address] Hemoglobin A1con 11-07-2023 HbA1c (Bld) [Mass fraction] 6.0 % High 3.8-5.6 [facility] Comment on above: Result Comment: Norm al < 5.7 % Prediabetic 5.7 - 6.4 % Diabetic >or= 6.5 % Please note range changes. Performed By: #### L 100.0100, L500.4050, L500.4100, L501.9985 ####[facility] [address] [place], [address] Lipid Profileon 11-07-2023 Cholesterol [Mass/Vol] 151 mg/dL Normal 200 [facility] Comment on above: Result Comment: <200 mg/dL Desirable 200-240 mg/dL Borderline >240 mg/dL High Risk Performed By: #### L 100.0100, L500.4050, L500.4100, L501.9985 ####[facility] [address] [place], [address] Cholesterol in HDL [Mass/Vol] 36 mg/dL Low [facility] Comment on above: Result Comment: The drugs N-Acetylcysteine and Metamizole may falselydepress this assay. Reference Range HDL <40 mg/dL Low HDL Cholesterol HDL >or= 60 mg/dL High HDL Cholesterol Performed By: #### L 100.0100, L500.4050, L500.4100, L501.9985 ####[facility] [address] [place], [address] Cholesterol in LDL [Mass/Vol] 90 mg/dL Normal 0-130 [facility] Comment on above: Performed By: #### L 100.0100, L500.4050, L500.4100, L501.9985 ####[facility] [address] [place], [address] Cholesterol in VLDL [Mass/Vol] 25 mg/dL Normal 5-40 [facility] Comment on above: Performed By: #### L 100.0100, L500.4050, L500.4100, L501.9985 ####[facility] [address] [place], [address] Triglyceride [Mass/Vol] 127 mg/dL Normal [facility] Comment on above: Result Comment: The drugs N-Acetylcysteine and Metamizole may falselydepress this assay.Serum Triglycerides Reference Interval Normal <150 mg/dL Borderline high 150 - 199 mg/dL High 200 - 499 mg/dL Very High > or = 500 mg/dL Performed By: #### L 100.0100, L500.4050, L500.4100, L501.9985 ####[facility] [address] [place], [address] .Auto Diffon 08-17-2023 Basophil, Absolute 0.0 10 3/mcL Normal 0.0-0.2 [facility] ([place]) Comment on above: Performed By: #### B 12 ####[place] [address]#### TSH, PBNP, CMP, ANEU, ADIFF, CBC, GFR, FE ####[address] [place], [place] [address] Basophils/100 WBC (Bld) 0.6 % Normal 0.0-2.5 A [facility] ([place]) Comment on above: Performed By: #### B 12 ####[place] [address]#### TSH, PBNP, CMP, ANEU, ADIFF, CBC, GFR, FE ####Katielilibeth [address] [place], [place] [address] Eosinophil, Absolute 0.2 10 3/mcL Normal 0.0-0.4 [facility] ([place] Comment on above: Performed By: #### B 12 ####[place] [address]#### TSH, PBNP, CMP, ANEU, ADIFF, CBC, GFR, FE ####Katie [address] [place], [place] [address] Eosinophils/100 WBC (Bld) 3.1 % Normal 0.0-7.0 [facility] ([place] Comment on above: Performed By: #### B 12 ####[place] [address]#### TSH, PBNP, CMP, ANEU, ADIFF, CBC, GFR, FE ####[address] [address] Lymphocyte, Absolute 1.1 10 3/mcL Normal 0.8-3.9 [facility] ([place] Comment on above: Performed By: #### B 12 ####[place] [address]#### TSH, PBNP, CMP, ANEU, ADIFF, CBC, GFR, FE ####Katie [address] [place], [place] [address] Lymphocytes/100 WBC (Bld) 20.8 % Normal 10.0-50.0 [facility] ([place]) Comment on above: Performed By: #### B 12 ####[place] [address]#### TSH, PBNP, CMP, ANEU, ADIFF, CBC, GFR, FE ####[place] [address] [place], [place] [address] Monocyte, Absolute 0.4 10 3/mcL Normal 0.2-1.0 [facility] ([place] Comment on above: Performed By: #### B 12 ####[place] [address]#### TSH, PBNP, CMP, ANEU, ADIFF, CBC, GFR, FE ####[place] [address] [place], [place] [address] Monocytes/100 WBC (Bld) 6.9 % Normal 1.7-13.0 [facility] ([place]) Comment on above: Performed By: #### B 12 ####[place] [address]#### TSH, PBNP, CMP, ANEU, ADIFF, CBC, GFR, FE ####[place] [address] [place], [place] [address] Neutrophils/100 WBC (Bld) 68.6 % Normal 37.0-80.0 [facility] ([place] Comment on above: Performed By: #### B 12 ####[place] [address]#### TSH, PBNP, CMP, ANEU, ADIFF, CBC, GFR, FE ####Katie [address] [place], [place] [address] .GFRon 08-17-2023 GFR 38 ml/min/1.73sqm Normal [facility] ([place]) Comment on above: Result Comment: GFR Population [...] square meters Performed By: #### B 12 ####[place] [address]#### TSH, PBNP, CMP, ANEU, ADIFF, CBC, GFR, FE ####Katie [address] [place], [place] [address] GFR Non- 31 ml/min/1.73sqm Normal [facility] ([place] Comment on above: Result Comment: GFR Population [...] square meters Performed By: #### B 12 ####[place] [id number]#### TSH, PBNP, CMP, ANEU, ADIFF, CBC, GFR, FE ####Katie [place] [place], [place] [address] .NEUABSon 08-17-2023 Neutrophil, Absolute 3.6 10 3/mcL Normal 2.9-6.2 [facility] ([place] Comment on above: Performed By: #### B 12 ####[place] [address]#### TSH, PBNP, CMP, ANEU, ADIFF, CBC, GFR, FE ####Katie [address] [place], [place] [address] A1Con 08-17-2023 HbA1c (Bld) [Mass fraction] 5.9 % Normal 4.3-6.4 [facility] ([place] Comment on above: Performed By: #### A 1C ####Katie [address] [place], [place] [address] B12on 08-17-2023 Cobalamin (Vitamin B12) [Mass/Vol] 958 pg/mL High 211-911 [facility] ([place] Comment on above: Performed By: #### B 12 ####[place] [address]#### TSH, PBNP, CMP, ANEU, ADIFF, CBC, GFR, FE ####Katie [address] [place], [place] [address] CBCon 08-17-2023 Erythrocyte distribution width (RBC) [Ratio] 16.4 % High 11.5-14.5 [facility] ([place] Comment on above: Performed By: #### B 12 ####[place] [address]#### TSH, PBNP, CMP, ANEU, ADIFF, CBC, GFR, FE ####Katie [address] [place], [place] [address] Hematocrit (Bld) [Volume fraction] 30.8 % Low 42.0-52.0 [facility] ([place] Comment on above: Performed By: #### B 12 ####[place] [address]#### TSH, PBNP, CMP, ANEU, ADIFF, CBC, GFR, FE ####[place] [place], [place] [address] Hgb 10.2 G/dL Low 14.0-18.0 [facility] ([place] Comment on above: Performed By: #### B 12 ####[place] [address]#### TSH, PBNP, CMP, ANEU, ADIFF, CBC, GFR, FE ####Katie [address] [place] [phone] MCH (RBC) [Entitic mass] 30.0 pg Normal 27.0-31.2 [facility] ([place] Comment on above: Performed By: #### B 12 ####[place] [address]#### TSH, PBNP, CMP, ANEU, ADIFF, CBC, GFR, FE ####[place] [address] [place] [id number] MCHC 33.0 G/dL Normal 31.8-35.4 [facility] ([place] Comment on above: Performed By: #### B 12 ####[place] [address]#### TSH, PBNP, CMP, ANEU, ADIFF, CBC, GFR, FE ####Katie [address] [place] [phone] MCV (RBC) [Entitic vol] 90.9 fL Normal 80.0-94.0 A [facility] ([place]) Comment on above: Performed By: #### B 12 ####[place] [address]#### TSH, PBNP, CMP, ANEU, ADIFF, CBC, GFR, FE ####Katie [address] [place] [id number] Platelet 99 10 3/mcL Low 130-400 [facility] ([place]) Comment on above: Performed By: #### B 12 ####[place] [address]#### TSH, PBNP, CMP, ANEU, ADIFF, CBC, GFR, FE ####Katie [address] [place], [place] [address] Platelet mean volume (Bld) [Entitic vol] 9.0 fL Normal 7.4-10.4 [facility] ([place]) Comment on above: Performed By: #### B 12 ####[place] [address]#### TSH, PBNP, CMP, ANEU, ADIFF, CBC, GFR, FE ####Katie [address] [place] [id number] RBC 3.39 10 6/mcL Low 4.04-6.13 [facility] ([place]) Comment on above: Performed By: #### B 12 ####[place] [address]#### TSH, PBNP, CMP, ANEU, ADIFF, CBC, GFR, FE ####Katie [address] [place] [id number] WBC 5.2 10 3/mcL Normal 4.6-10.8 [facility] ([place] Comment on above: Performed By: #### B 12 ####[place] [address]#### TSH, PBNP, CMP, ANEU, ADIFF, CBC, GFR, FE ####Katie [address] [place], [place] [address] CMPon 08-17-2023 Albumin Level 3.5 G/dL Normal 3.4-4.8 [facility] ([place]) Comment on above: Performed By: #### B 12 ####[place] [address]#### TSH, PBNP, CMP, ANEU, ADIFF, CBC, GFR, FE ####Katie [address] [place] [id number] Albumin/Globulin [Mass ratio] 1.0 {ratio} Low 1.1-2.5 [facility] ([place]) Comment on above: Performed By: #### B 12 ####[place] [address]#### TSH, PBNP, CMP, ANEU, ADIFF, CBC, GFR, FE ####[place] [address] [place], [place] [address] ALP [Catalytic activity/Vol] 74 U/L Normal 40-135 [facility] ([place]) Comment on above: Performed By: #### B 12 ####[place] [address]#### TSH, PBNP, CMP, ANEU, ADIFF, CBC, GFR, FE ####[facility] [place], [place] [address] ALT [Catalytic activity/Vol] 23 U/L Normal 16-63 [facility] ([place] Comment on above: Performed By: #### B 12 ####[place] [address]#### TSH, PBNP, CMP, ANEU, ADIFF, CBC, GFR, FE ####[facility] [place] [id number] AST [Catalytic activity/Vol] 15 U/L Normal 10-40 [facility] ([place] Comment on above: Performed By: #### B 12 ####[place] [address]#### TSH, PBNP, CMP, ANEU, ADIFF, CBC, GFR, FE ####[facility] [place], [place] [address] Bili Total 0.5 mg/dL Normal 0.2-1.0 [facility] ([place] Comment on above: Result Comment: Use of this assay is not recommended for patients undergoing treatment with eltrombopag due to the potential for falsely elevated results. Performed By: #### B 12 ####[place] [address]#### TSH, PBNP, CMP, ANEU, ADIFF, CBC, GFR, FE ####[facility] [place] [id number] BUN/Creatinine Ratio 31 ratio High 7-27 [facility] ([place]) Comment on above: Performed By: #### B 12 ####[place] [address]#### TSH, PBNP, CMP, ANEU, ADIFF, CBC, GFR, FE ####[place] [address] [place], [place] [address] Calcium [Mass/Vol] 8.9 mg/dL Normal 8.4-10.2 [facility] ([place]) Comment on above: Performed By: #### B 12 ####[place] [address]#### TSH, PBNP, CMP, ANEU, ADIFF, CBC, GFR, FE ####[facility] [place], [place] [address] Chloride [Moles/Vol] 109 mmol/L High 98-107 [facility] ([place] Comment on above: Performed By: #### B 12 ####[place] [address]#### TSH, PBNP, CMP, ANEU, ADIFF, CBC, GFR, FE ####[facility] [place] [address] CO2 [Moles/Vol] 28 mmol/L Normal 23-31 [facility] [place] Comment on above: Performed By: #### B 12 ####[place] [address]#### TSH, PBNP, CMP, ANEU, ADIFF, CBC, GFR, FE ####[facility] [place], [place] [address] Creatinine [Mass/Vol] 2.03 mg/dL High 0.70-1.30 [facility] ([place]) Comment on above: Performed By: #### B 12 ####[place] [address]#### TSH, PBNP, CMP, ANEU, ADIFF, CBC, GFR, FE ####[facility] [place] [phone] Electrolyte Balance 10.0 mEq/L Normal 4.0-15.0 [facility] [place]) Comment on above: Performed By: #### B 12 ####[place] [address]#### TSH, PBNP, CMP, ANEU, ADIFF, CBC, GFR, FE ####[place] [address] [place], [place] [address] Globulin 3.5 G/dL Normal [facility] ([place] Comment on above: Performed By: #### B 12 ####[place] [address]#### TSH, PBNP, CMP, ANEU, ADIFF, CBC, GFR, FE ####[address] [place], [place] [address] Glucose [Mass/Vol] 107 mg/dL Normal 83-110 [facility] ([place] Comment on above: Performed By: #### B 12 ####[place] [address]#### TSH, PBNP, CMP, ANEU, ADIFF, CBC, GFR, FE ####[place] [address] [place], [place] [address] Potassium [Moles/Vol] 4.5 mmol/L Normal 3.5-5.1 [facility] ([place]) Comment on above: Performed By: #### B 12 ####[place] [address]#### TSH, PBNP, CMP, ANEU, ADIFF, CBC, GFR, FE ####[address] [place], [place] [address] Sodium [Moles/Vol] 147 mmol/L High 136-145 [facility] ([place] Comment on above: Performed By: #### B 12 ####[place] [address]#### TSH, PBNP, CMP, ANEU, ADIFF, CBC, GFR, FE ####[place] [address] [place], [place] [address] Total Protein 7.0 G/dL Normal 6.4-8.2 [facility] [place] Comment on above: Performed By: #### B 12 ####[place] [address]#### TSH, PBNP, CMP, ANEU, ADIFF, CBC, GFR, FE ####[address] [place], [place] [address] Urea nitrogen [Mass/Vol] 62 mg/dL High 7-18 [facility] [place] Comment on above: Performed By: #### B 12 ####[address] [address]#### TSH, PBNP, CMP, ANEU, ADIFF, CBC, GFR, FE ####[address] [place], [place] [address] FEon 08-17-2023 Iron [Mass/Vol] 97 ug/dL Normal 65-175 [facility] [place] Comment on above: Performed By: #### B 12 ####[place] [id number]#### TSH, PBNP, CMP, ANEU, ADIFF, CBC, GFR, FE ####[address] [place], [place] [address] LABORATORYOrdered By: SYSTEM SYSTEM on 08-17-2023 HbA1c [...] B (Bld) [Mass/Vol] 1234 pg/mL High 0-450 [facility] ([place] Comment on above: Result Comment: NT-p roBNP results of less than 300 pg/mL effectivelyrules out acute congestive heart failure with 99% negative predictive value. Performed By: #### B 12 ####[address] [address]#### TSH, PBNP, CMP, ANEU, ADIFF, CBC, GFR, FE ####[facility] [place], [place] [address] TSHon 08-17-2023 TSH Qn 2.84 m[IU]/L Normal 0.36-3.74 [facility] [place] Comment on above: Performed By: #### B 12 ####[address] [address]#### TSH, PBNP, CMP, ANEU, ADIFF, CBC, GFR, FE ####[facility] [place], [place] [address] .Auto Diffon 07-03-2023 Basophil, Absolute 0.0 10 3/mcL Normal 0.0-0.2 [facility] ([place] Comment on above: Performed By: #### A DIFF, GFR, CBC, PBNP, ANEU, CMP, RETO ####[address] [place], [place] [address] Basophils/100 WBC (Bld) 0.5 % Normal 0.0-2.5 [facility] ([place]) Comment on above: Performed By: #### A DIFF, GFR, CBC, PBNP, ANEU, CMP, RETO ####[place] [place], [place] [address] Eosinophil, Absolute 0.2 10 3/mcL Normal 0.0-0.4 [facility] ([place] Comment on above: Performed By: #### A DIFF, GFR, CBC, PBNP, ANEU, CMP, RETO ####[address] [place], [place] [address] Eosinophils/100 WBC (Bld) 3.6 % Normal 0.0-7.0 [facility] [place] Comment on above: Performed By: #### A DIFF, GFR, CBC, PBNP, ANEU, CMP, RETO ####[place] [address] [place], [place] [address] Lymphocyte, Absolute 1.4 10 3/mcL Normal 0.8-3.9 [facility] [place] Comment on above: Performed By: #### A DIFF, GFR, CBC, PBNP, ANEU, CMP, RETO ####[address] [address] [place], [place] [address] Lymphocytes/100 WBC (Bld) 26.5 % Normal 10.0-50.0 [facility] [place] Comment on above: Performed By: #### A DIFF, GFR, CBC, PBNP, ANEU, CMP, RETO ####[address] [place], [place] [address] Monocyte, Absolute 0.4 10 3/mcL Normal 0.2-1.0 [facility] [place] Comment on above: Performed By: #### A DIFF, GFR, CBC, PBNP, ANEU, CMP, RETO ####[address] [place], [place] [address] Monocytes/100 WBC (Bld) 8.3 % Normal 1.7-13.0 [facility] ([place]) Comment on above: Performed By: #### A DIFF, GFR, CBC, PBNP, ANEU, CMP, RETO ####[address] [place], [place] [address] Neutrophils/100 WBC (Bld) 61.1 % Normal 37.0-80.0 [facility] [place] Comment on above: Performed By: #### A DIFF, GFR, CBC, PBNP, ANEU, CMP, RETO ####[place] [place], [place] [address] .GFRon 07-03-2023 GFR 35 ml/min/1.73sqm Normal [facility] [place] Comment on above: Result Comment: GFR Population [...] GFR, CBC, PBNP, ANEU, CMP, RETO ####[address] [place], [place] [address] GFR Non- 29 ml/min/1.73sqm Normal [facility] [place] Comment on above: Result Comment: GFR Population [...] GFR, CBC, PBNP, ANEU, CMP, RETO ####[address] [place], [place] [address] .NEUABSon 07-03-2023 Neutrophil, Absolute 3.2 10 3/mcL Normal 2.9-6.2 [facility] [place] Comment on above: Performed By: #### A DIFF, GFR, CBC, PBNP, ANEU, CMP, RETO ####[place] [place], [place] [address] CBCon 07-03-2023 Erythrocyte distribution width (RBC) [Ratio] 15.5 % High 11.5-14.5 [facility] [place] Comment on above: Performed By: #### A DIFF, GFR, CBC, PBNP, ANEU, CMP, RETO ####[place] [place], [place] [address] Hematocrit (Bld) [Volume fraction] 26.2 % Low 42.0-52.0 [facility] [place] Comment on above: Performed By: #### A DIFF, GFR, CBC, PBNP, ANEU, CMP, RETO ####[address] [place], [place] [address] Hgb 8.8 G/dL Low 14.0-18.0 [facility] [place] Comment on above: Performed By: #### A DIFF, GFR, CBC, PBNP, ANEU, CMP, RETO ####[address] [place], [place] [address] MCH (RBC) [Entitic mass] 29.0 pg Normal 27.0-31.2 [facility] [place] Comment on above: Performed By: #### A DIFF, GFR, CBC, PBNP, ANEU, CMP, RETO ####[address] [place], [place] [address] MCHC 33.6 G/dL Normal 31.8-35.4 [facility] [place] Comment on above: Performed By: #### A DIFF, GFR, CBC, PBNP, ANEU, CMP, RETO ####[address] [place], [place] [address] MCV (RBC) [Entitic vol] 86.4 fL Normal 80.0-94.0 [facility] ([place] Comment on above: Performed By: #### A DIFF, GFR, CBC, PBNP, ANEU, CMP, RETO ####[address] [place], [place] [address] Platelet 107 10 3/mcL Low 130-400 [facility] [place] Comment on above: Performed By: #### A DIFF, GFR, CBC, PBNP, ANEU, CMP, RETO ####[address] [place], [place] [address] Platelet mean volume (Bld) [Entitic vol] 9.4 fL Normal 7.4-10.4 [facility] [place] Comment on above: Performed By: #### A DIFF, GFR, CBC, PBNP, ANEU, CMP, RETO ####[address] [place], [place] [address] RBC 3.03 10 6/mcL Low 4.04-6.13 [facility] [place] Comment on above: Performed By: #### A DIFF, GFR, CBC, PBNP, ANEU, CMP, RETO ####[address] [place], [place] [address] WBC 5.3 10 3/mcL Normal 4.6-10.8 [facility] [place] Comment on above: Performed By: #### A DIFF, GFR, CBC, PBNP, ANEU, CMP, RETO ####[address] [place], [place] [address] CMPon 07-03-2023 Albumin Level 3.3 G/dL Low 3.4-4.8 [facility] [place] Comment on above: Performed By: #### A DIFF, GFR, CBC, PBNP, ANEU, CMP, RETO ####[address] [place], [place] [address] Albumin/Globulin [Mass ratio] 1.1 {ratio} Normal 1.1-2.5 [facility] [place] Comment on above: Performed By: #### A DIFF, GFR, CBC, PBNP, ANEU, CMP, RETO ####[address] [place], [place] [address] ALP [Catalytic activity/Vol] 76 U/L Normal 40-135 [facility] [place] Comment on above: Performed By: #### A DIFF, GFR, CBC, PBNP, ANEU, CMP, RETO ####[address] [place], [place] [address] ALT [Catalytic activity/Vol] 27 U/L Normal 16-63 [facility] [place] Comment on above: Performed By: #### A DIFF, GFR, CBC, PBNP, ANEU, CMP, RETO ####[address] [place], [place] [address] AST [Catalytic activity/Vol] 17 U/L Normal 10-40 [facility] [place] Comment on above: Performed By: #### A DIFF, GFR, CBC, PBNP, ANEU, CMP, RETO ####[address] [place], [place] [address] Bili Total 0.5 mg/dL Normal 0.2-1.0 [facility] [place] Comment on above: Result Comment: Use of this assay is not recommended for patients undergoing treatment with eltrombopag due to the potential for falsely elevated results. Performed By: #### A DIFF, GFR, CBC, PBNP, ANEU, CMP, RETO ####[address] [place], [place] [address] BUN/Creatinine Ratio 27 ratio Normal 7-27 [facility] ([place] Comment on above: Performed By: #### A DIFF, GFR, CBC, PBNP, ANEU, CMP, RETO ####[address] [place], [place] [address] Calcium [Mass/Vol] 8.4 mg/dL Normal 8.4-10.2 [facility] ([place] Comment on above: Performed By: #### A DIFF, GFR, CBC, PBNP, ANEU, CMP, RETO ####[address] [place], [place] [address] Chloride [Moles/Vol] 108 mmol/L High 98-107 [facility] [place] Comment on above: Performed By: #### A DIFF, GFR, CBC, PBNP, ANEU, CMP, RETO ####[address] [place], [place] [address] CO2 [Moles/Vol] 30 mmol/L Normal 23-31 [facility] [place] Comment on above: Performed By: #### A DIFF, GFR, CBC, PBNP, ANEU, CMP, RETO ####[address] [place], [place] [address] Creatinine [Mass/Vol] 2.16 mg/dL High 0.70-1.30 [facility] ([place] Comment on above: Performed By: #### A DIFF, GFR, CBC, PBNP, ANEU, CMP, RETO ####[address] [place], [place] [address] Electrolyte Balance 8.0 mEq/L Normal 4.0-15.0 [facility] [place] Comment on above: Performed By: #### A DIFF, GFR, CBC, PBNP, ANEU, CMP, RETO ####[address] [place], [place] [address] Globulin 2.9 G/dL Normal [facility] ([place] Comment on above: Performed By: #### A DIFF, GFR, CBC, PBNP, ANEU, CMP, RETO ####[address] [place], [place] [address] Glucose [Mass/Vol] 153 mg/dL High 83-110 [facility] ([place] Comment on above: Performed By: #### A DIFF, GFR, CBC, PBNP, ANEU, CMP, RETO ####[address] [place], [place] [address] Potassium [Moles/Vol] 4.1 mmol/L Normal 3.5-5.1 [facility] ([place] Comment on above: Performed By: #### A DIFF, GFR, CBC, PBNP, ANEU, CMP, RETO ####[address] [place], [place] [address] Sodium [Moles/Vol] 146 mmol/L High 136-145 [facility] ([place] Comment on above: Performed By: #### A DIFF, GFR, CBC, PBNP, ANEU, CMP, RETO ####[address] [place], [place] [address] Total Protein 6.2 G/dL Low 6.4-8.2 [facility] [place] Comment on above: Performed By: #### A DIFF, GFR, CBC, PBNP, ANEU, CMP, RETO ####[address] [place], [place] [address] Urea nitrogen [Mass/Vol] 58 mg/dL High 7-18 [facility] [place] Comment on above: Performed By: #### A DIFF, GFR, CBC, PBNP, ANEU, CMP, RETO ####[address] [place], [place] [address] PBNPon 07-03-2023 Natriuretic peptide B (Bld) [Mass/Vol] 1518 pg/mL High 0-450 [facility] [place] Comment on above: Result Comment: NT-p roBNP results of less than 300 pg/mL effectivelyrules out acute congestive heart failure with 99% negative predictive value. Performed By: #### A DIFF, GFR, CBC, PBNP, ANEU, CMP, RETO ####[address] [place], [place] [address] RETO (AO)on 07-03-2023 Immature Retic Fraction 0.51 IRF High 0.20-0.46 [facility] ([place] Comment on above: Performed By: #### A DIFF, GFR, CBC, PBNP, ANEU, CMP, RETO ####[address] [place], [place] [address] Reticulocytes, Auto 1.8 % Normal 0.2-2.3 [facility] [place] Comment on above: Performed By: #### A DIFF, GFR, CBC, PBNP, ANEU, CMP, RETO ###[address] [place], [place] [address] Absolute lymphocyte countOrd ered By: Dalton Forrest on 06-27-2023 Lymphocytes Auto (Unsp spec) [#/Vol] 1.13 10*3/uL 0.83-4.51 [facility] Automated lymphocyte count a s percentage of total leukocytesOrdered By: Dalton Forrest on 06-27-2023 Lymphocytes/100 WBC Auto (Unsp spec) 23.7 % 19-41 [facility] Basophil percentageOrdered B y: Dalton Forrest on 06-27-2023 Basophil percentage 0 SEEN /hpf 0-5 [facility] Basophils/100 WBC (Bld) 0.4 % 0-1 [facility] Bilirubin [Mass/Vol] 0.70 mg/dL 0.20-1.00 [facility] Comment on above: For patients on eltr ombopag therapy, use of Dimension [place] TBIL is not recommended. Chloride [Moles/Vol] 107 mmol/L 98-107 [facility] Eosinophils/100 WBC (Bld) 3.8 % 0-5 [facility] Glucose [Mass/Vol] 257 mg/dL 74-106 [facility] Comment on above: Glucose result great er than or equal to 200 mg/dLsuggests DIABETES MELLITUS per A.D.A. criteria. Hemoglobin (Bld) [Mass/Vol] 8.5 g/dL 13.0-16.5 [facility] Monocytes/100 WBC (Bld) 9.6 % 0-10 [facility] Neutrophils (Bld) [#/Vol] 3.0 10*3/uL 2.0-7.7 [facility] Neutrophils/100 WBC (Bld) 62.3 % 47-70 [facility] Potassium [Moles/Vol] 4.0 mmol/L 3.5-5.1 [facility] Protein [Mass/Vol] 6.7 g/dL 6.4-8.2 [facility] Sodium [Moles/Vol] 142 mmol/L 136-145 [facility] WBC (Bld) [#/Vol] 4.8 10*3/uL 4.4-11.0 [facility] Bilirubin Test strip Ql (U)O rdered By: Dalton Forrest on 06-27-2023 Bilirubin Ql (U) Negative Negative [facility] Blood platelet adequacy dete ction by light microscopyOrdered By: Dalton Forrest on 06-27-2023 Platelets LM Ql (Bld) SLT DEC ADEQ [facility] Determination of erythrocyte mean corpuscular volume (MCV)Ordered By: Dalton Forrest on 06-27-2023 MCV (RBC) [Entitic vol] 90.2 fL 80-94 [facility] Erythrocyte distribution wid th ratioOrdered By: Dalton Forrest on 06-27-2023 Erythrocyte distribution width (RBC) [Ratio] 14.3 % 11.6-14.6 [facility] Erythrocyte distribution wid th standard deviationOrdered By: Dalton Forrest on 06-27-2023 Erythrocyte distribution width (RBC) [Entitic vol] 47.0 fL 35.1-43.9 [facility] Hematocrit Auto (Bld) [Volum e fraction]Ordered By: Dalton Forrest on 06-27-2023 Hematocrit (Bld) [Volume fraction] 27.5 % 40-54 [facility] Immature granulocytes/100 WB C Auto (Bld)Ordered By: Dalton Forrest on 06-27-2023 Immature granulocytes/100 WBC (Bld) 0.200 % 0.0-0.9 [facility] Comment on above: IG% - Immature Granu locytes (promyelocytes, myelocytes and metamyelocytes) > 1% indicates that a LEFT SHIFT is Present. Ketones Test strip Ql (U)Ord ered By: Dalton Forrest on 06-27-2023 Ketones Ql (U) Negative Negative [facility] Laboratory - Chemistry and C hemistry - challengeOrdered By: Dalton Forrest on 06-27-2023 Albumin/Globulin [Mass ratio] 0.8 {ratio} 0.9-2.4 [facility] ALP [Catalytic activity/Vol] 73 U/L 45-117 [facility] ALT [Catalytic activity/Vol] 37 U/L 16-61 [facility] CO2 [Moles/Vol] 30.0 mmol/L 21.0-32.0 [facility] Globulin (S) [Mass/Vol] 3.7 g/dL 2.2-4.2 [facility] Urea nitrogen/Creatinine [Mass ratio] 26.3 mg/mg 10-20 [facility] Laboratory - Hematology and Cell countsOrdered By: Dalton Forrest on 06-27-2023 MCH (RBC) [Entitic mass] 27.9 pg 27.0-32.0 [facility] MCHC (RBC) [Mass/Vol] 30.9 g/dL 32-36 [facility] Nucleated RBC/100 WBC (Bld) [Ratio] 0 % 0-5 [facility] Platelet mean volume (Bld) [Entitic vol] 11.4 fL 6.2-12.0 [facility] Platelets (Bld) [#/Vol] 88 10*3/uL 150-450 [facility] Mucus LM Ql (Urine sed)Order ed By: Dalton Forrest on 06-27-2023 Mucus Ql (Urine sed) RARE /hpf [facility] Nitrite Test strip Ql (U)Ord ered By: Dalton Forrest on 06-27-2023 Nitrite Ql (U) Negative Negative [facility] No Panel InformationOrdered By: Dalton Forrest on 06-27-2023 Urine RBC 0 SEEN /hpf 0-5 [facility] Estimated GFR (MDRD) Amer 33 mL/min >60 [facility] Comment on above: GFR Calc Estimated GFR (MDRD) Non-Af Amer 27 mL/min >60 [facility] Comment on above: Non- GFR Calc Troponin I High Sensitivity 31 pg/mL 3.0-78.0 [facility] Comment on above: Please Note: New Arti t Units and Gender Specific Reference Ranges. For more information see Policy Stat Procedure [place] High Sensitivity Troponin (TNIH) and attachments. Protein Test strip Ql (U)Ord ered By: Dalton Forrest on 06-27-2023 Protein Ql (U) 30 mg/dl Negative [facility] RBC Auto (Bld) [#/Vol]Ordere d By: Dalton Forrest on 06-27-2023 RBC (Bld) [#/Vol] 3.05 10*6/uL 4.6-6.2 [facility] Serum or plasma calcium elmira urement (mass/volume)Ordered By: Dalton Forrest on 06-27-2023 Calcium [Mass/Vol] 9.2 mg/dL 8.5-10.1 [facility] Serum or plasma creatinine m easurement (mass/volume)Ordered By: Dalton Forrest on 06-27-2023 Creatinine [Mass/Vol] 2.43 mg/dL 0.70-1.30 [facility] Comment on above: The validity of the calculated GFR & GFRAA in patients over 70 years has not been determined. Clinical correlation is essential. Serum or plasma urea nitroge n measurement (mass/volume)Ordered By: Dalton Forrest on 06-27-2023 Urea nitrogen [Mass/Vol] 64 mg/dL 7-18 [facility] Squamous epithelial cells de tection in urine sediment by light microscopyOrdered By: Dalton Forrest on 06-27-2023 Epithelial cells.squamous LM Ql (Urine sed) 0-5 SEEN /hpf 0-5 [facility] Thin prep Papanicolaou smear with manual screeningOrdered By: Dalton Forrest on 06-27-2023 Thin prep Papanicolaou smear with manual screening 3.0 g/dL 3.2-5.0 [facility] Thin prep Papanicolaou smear with manual screening 23 U/L 15-37 [facility] Thin prep Papanicolaou smear with manual screening 5 5-15 [facility] Urine blood detectionOrdered By: Dalton Forrest on 06-27-2023 RBC Ql (U) Negative Negative [facility] Urine clarityOrdered By: Sivan Forrest on 06-27-2023 Clarity (U) Clear Clear [facility] Urine color determinationOrd ered By: Dalton Forrest on 06-27-2023 Color (U) Yellow Yellow [facility] Urine glucose detectionOrder ed By: Dalton Forrest on 06-27-2023 Glucose Ql (U) 1000 mg/dl Normal [facility] Urine leukocyte esterase det ection by dipstickOrdered By: Dalton Forrest on 06-27-2023 Leukocyte esterase Test strip Ql (U) Negative Negative [facility] Urine pHOrdered By: Dalton buchanan on 06-27-2023 pH (U) 5.0 [pH] 5.0 - 8.0 [facility] Urine sediment bacteria coun t by microscopy (number/high power field)Ordered By: Dalton Forrets on 06-27-2023 Bacteria LM.HPF (Urine sed) [#/Area] 0 /[HPF] None Seen [facility] Urine specific gravity measu rementOrdered By: Dalton Forrest on 06-27-2023 Specific gravity (U) [Rel density] 1.015 1.002-1.030 [facility] Urine urobilinogen measureme ntOrdered By: Dalton Forrest on 06-27-2023 Urobilinogen Ql (U) Normal mg/dl Normal [facility] .Auto Diffon 06-11-2023 Basophil, Absolute 0.0 10 3/mcL Normal 0.0-0.3 [facility] ([place] Comment on above: Performed By: #### G FR, CBC, ANEU, BMP, ADIFF ####[address] [address] Basophils/100 WBC (Bld) 0.2 % Normal 0.0-2.5 A [facility] ([place] Comment on above: Performed By: #### G FR, CBC, ANEU, BMP, ADIFF ####[address] [address] Eosinophil, Absolute 0.1 10 3/mcL Normal 0.0-0.7 [facility] ([place] Comment on above: Performed By: #### G FR, CBC, ANEU, BMP, ADIFF ####[address] [address] Eosinophils/100 WBC (Bld) 1.4 % Normal 0.0-6.0 [facility] ([place] Comment on above: Performed By: #### G FR, CBC, ANEU, BMP, ADIFF ####[address] [address] Lymphocyte, Absolute 1.5 10 3/mcL Normal 0.9-4.3 [facility] ([place] Comment on above: Performed By: #### G FR, CBC, ANEU, BMP, ADIFF ####[address] [address] Lymphocytes/100 WBC (Bld) 21.0 % Normal 20.0-40.0 [facility] [place] Comment on above: Performed By: #### G FR, CBC, ANEU, BMP, ADIFF ####[address] [address] Monocyte, Absolute 0.4 10 3/mcL Normal 0.1-1.4 [facility] ([place] Comment on above: Performed By: #### G FR, CBC, ANEU, BMP, ADIFF ####[address] [address] Monocytes/100 WBC (Bld) 5.1 % Normal 2.0-13.0 [facility] ([place] Comment on above: Performed By: #### G FR, CBC, ANEU, BMP, ADIFF ####[address] [address] Neutrophils/100 WBC (Bld) 72.3 % Normal 50.0-75.0 [facility] [place] Comment on above: Performed By: #### G FR, CBC, ANEU, BMP, ADIFF ####[address] [address] .GFRon 06-11-2023 GFR 36 ml/min/1.73sqm Normal [facility] ([place] Comment on above: Result Comment: GFR Population [...] #### G FR, CBC, ANEU, BMP, ADIFF ####[address] [address] GFR Non- 29 ml/min/1.73sqm Normal [facility] ([place] Comment on above: Result Comment: GFR Population [...] #### G FR, CBC, ANEU, BMP, ADIFF ####[address] [address] .NEUABSon 06-11-2023 Neutrophil, Absolute 5.2 10 3/mcL Normal 2.3-8.1 [facility] ([place] Comment on above: Performed By: #### G FR, CBC, ANEU, BMP, ADIFF ####[address] [address] BMPon 06-11-2023 BUN/Creatinine Ratio 47.9 ratio High 10.0-22.0 [facility] ([place] Comment on above: Performed By: #### G FR, CBC, ANEU, BMP, ADIFF ####[address] [address] Calcium [Mass/Vol] 9.2 mg/dL Normal 8.7-10.4 [facility] ([place] Comment on above: Performed By: #### G FR, CBC, ANEU, BMP, ADIFF ####[address] [address] Chloride [Moles/Vol] 103 mmol/L Normal 98-110 [facility] ([place] Comment on above: Performed By: #### G FR, CBC, ANEU, BMP, ADIFF ####[address] [address] CO2 [Moles/Vol] 28 mmol/L Normal 22-32 [facility] ([place] Comment on above: Performed By: #### G FR, CBC, ANEU, BMP, ADIFF ####[address] [address] [address] Creatinine [Mass/Vol] 2.15 mg/dL High 0.60-1.40 [facility] ([place]) Comment on above: Performed By: #### G FR, CBC, ANEU, BMP, ADIFF ####[address] [address] Electrolyte Balance 8.0 mEq/L Normal 4.0-15.0 [facility] ([place]) Comment on above: Performed By: #### G FR, CBC, ANEU, BMP, ADIFF ####[place] [address] Glucose [Mass/Vol] 135 mg/dL High 82-115 [facility] ([place]) Comment on above: Performed By: #### G FR, CBC, ANEU, BMP, ADIFF ####[address] [address] Potassium [Moles/Vol] 4.7 mmol/L Normal 3.5-5.0 [facility] ([place]) Comment on above: Performed By: #### G FR, CBC, ANEU, BMP, ADIFF ####[address] [address] Sodium [Moles/Vol] 139 mmol/L Normal 136-145 [facility] ([place]) Comment on above: Performed By: #### G FR, CBC, ANEU, BMP, ADIFF ####[address] [address] Urea nitrogen [Mass/Vol] 103.0 mg/dL Critica lly abnormal 8.0-22.0 [facility] ([place]) Comment on above: Performed By: #### G FR, CBC, ANEU, BMP, ADIFF ####[place] [address] CBCon 06-11-2023 Erythrocyte distribution width (RBC) [Ratio] 15.8 % High 11.5-15.5 [facility] ([place]) Comment on above: Performed By: #### G FR, CBC, ANEU, BMP, ADIFF ####[place] [address] Hematocrit (Bld) [Volume fraction] 27.0 % Low 40.0-52.0 [facility] ([place] Comment on above: Performed By: #### G FR, CBC, ANEU, BMP, ADIFF ####[place] [address] Hgb 9.3 G/dL Low 13.0-17.5 [facility] ([place] Comment on above: Performed By: #### G FR, CBC, ANEU, BMP, ADIFF ####[place] [address] MCH (RBC) [Entitic mass] 29.7 pg Normal 27.0-33.0 [facility] ([place] Comment on above: Performed By: #### G FR, CBC, ANEU, BMP, ADIFF ####[place] [address] MCHC 34.4 G/dL Normal 32.0-36.0 [facility] ([place] Comment on above: Performed By: #### G FR, CBC, ANEU, BMP, ADIFF ####[place] [address] MCV (RBC) [Entitic vol] 86.5 fL Normal 81.0-100.0 [facility] ([place]) Comment on above: Performed By: #### G FR, CBC, ANEU, BMP, ADIFF ####[place] [address] Platelet 138 10 3/mcL Low 150-450 [facility] ([place]) Comment on above: Performed By: #### G FR, CBC, ANEU, BMP, ADIFF ####[place] [address] [place] [address] Platelet mean volume (Bld) [Entitic vol] 8.9 fL Normal 6.4-10.5 [facility] ([place] Comment on above: Performed By: #### G FR, CBC, ANEU, BMP, ADIFF ####[facility] [place] [address] RBC 3.13 10 6/mcL Low 4.50-6.00 [facility] ([place] Comment on above: Performed By: #### G FR, CBC, ANEU, BMP, ADIFF ####[place] [id number] [place] [address] WBC 7.2 10 3/mcL Normal 4.5-10.8 [facility] ([place] Comment on above: Performed By: #### G FR, CBC, ANEU, BMP, ADIFF ####[place] [address] LABORATORYOrdered By: Kelly Romero on 06-11-2023 Glucose [Mass/Vol] 161 mg/dL High 82 - 115 mg/dL [facility] Work Phone: Glucose [Mass/Vol] 136 mg/dL High 82 - 115 mg/dL [facility] Work Phone: LABORATORYOrdered By: Katie Wilkins on 06-11-2023 Glucose [Mass/Vol] 136 mg/dL High 82 - 115 mg/dL [facility] Work Phone: LABORATORYOrdered By: SYSTEM SYSTEM on [...] [Vol rate/Area] 36 ml/min/1.73sqm Invalid Interpretation Code [facility] Comment on above: Interpretive Data: [...] [Vol rate/Area] 29 ml/min/1.73sqm Invalid Interpretation Code [facility] Comment on above: Interpretive Data: [...] VIEWon 06-11-2023 XR CHEST 1 VIEW Normal [facility] ([place]) .Auto Diffon 06-10-2023 Basophil, Absolute 0.0 10 3/mcL Normal 0.0-0.3 [facility] ([place]) Comment on above: Performed By: #### A DIFF, ANEU, PBNP, MG, GFR, CBC, BMP, PRO ####[address] [address] Basophils/100 WBC (Bld) 0.0 % Normal 0.0-2.5 [facility] ([place] Comment on above: Performed By: #### A DIFF, ANEU, PBNP, MG, GFR, CBC, BMP, PRO ####[address] [address] Eosinophil, Absolute 0.0 10 3/mcL Normal 0.0-0.7 [facility] ([place]) Comment on above: Performed By: #### A DIFF, ANEU, PBNP, MG, GFR, CBC, BMP, PRO ####[address] [address] Eosinophils/100 WBC (Bld) 0.1 % Normal 0.0-6.0 [facility] ([place] Comment on above: Performed By: #### A DIFF, ANEU, PBNP, MG, GFR, CBC, BMP, PRO ####[address] [address] Lymphocyte, Absolute 0.9 10 3/mcL Normal 0.9-4.3 [facility] ([place] Comment on above: Performed By: #### A DIFF, ANEU, PBNP, MG, GFR, CBC, BMP, PRO ####[address] [address] Lymphocytes/100 WBC (Bld) 6.8 % Low 20.0-40.0 [facility] ([place] Comment on above: Performed By: #### A DIFF, ANEU, PBNP, MG, GFR, CBC, BMP, PRO ####[address] [address] Monocyte, Absolute 0.4 10 3/mcL Normal 0.1-1.4 [facility] ([place] Comment on above: Performed By: #### A DIFF, ANEU, PBNP, MG, GFR, CBC, BMP, PRO ####[address] [address] Monocytes/100 WBC (Bld) 3.2 % Normal 2.0-13.0 [facility] ([place] Comment on above: Performed By: #### A DIFF, ANEU, PBNP, MG, GFR, CBC, BMP, PRO ####[address] [address] Neutrophils/100 WBC (Bld) 89.9 % High 50.0-75.0 [facility] [place] Comment on above: Performed By: #### A DIFF, ANEU, PBNP, MG, GFR, CBC, BMP, PRO ####[address] [address] .GFRon 06-10-2023 GFR 40 ml/min/1.73sqm Normal [facility] ([place] Comment on above: Result Comment: GFR Population [...] ANEU, PBNP, MG, GFR, CBC, BMP, PRO ####[address] [address] GFR Non- 33 ml/min/1.73sqm Normal [facility] ([place] Comment on above: Result Comment: GFR Population [...] ANEU, PBNP, MG, GFR, CBC, BMP, PRO ####[place] [address] .NEUABSon 06-10-2023 Neutrophil, Absolute 12.4 10 3/mcL High 2.3-8.1 [facility] ([place]) Comment on above: Performed By: #### A DIFF, ANEU, PBNP, MG, GFR, CBC, BMP, PRO ####[place] [address] BMPon 06-10-2023 BUN/Creatinine Ratio 49.0 ratio High 10.0-22.0 [facility] ([place] Comment on above: Performed By: #### A DIFF, ANEU, PBNP, MG, GFR, CBC, BMP, PRO ####[address] [address] Calcium [Mass/Vol] 9.0 mg/dL Normal 8.7-10.4 [facility] [place] Comment on above: Performed By: #### A DIFF, ANEU, PBNP, MG, GFR, CBC, BMP, PRO ####[place] [address] Chloride [Moles/Vol] 103 mmol/L Normal 98-110 [facility] ([place] Comment on above: Performed By: #### A DIFF, ANEU, PBNP, MG, GFR, CBC, BMP, PRO ####[place] [address] CO2 [Moles/Vol] 25 mmol/L Normal 22-32 [facility] ([place] Comment on above: Performed By: #### A DIFF, ANEU, PBNP, MG, GFR, CBC, BMP, PRO ####[address] [address] Creatinine [Mass/Vol] 1.96 mg/dL High 0.60-1.40 [facility] ([place]) Comment on above: Performed By: #### A DIFF, ANEU, PBNP, MG, GFR, CBC, BMP, PRO ####[address] [address] Electrolyte Balance 6.0 mEq/L Normal 4.0-15.0 [facility] [place] Comment on above: Performed By: #### A DIFF, ANEU, PBNP, MG, GFR, CBC, BMP, PRO ####[address] [address] Glucose [Mass/Vol] 212 mg/dL High 82-115 [facility] ([place] Comment on above: Performed By: #### A DIFF, ANEU, PBNP, MG, GFR, CBC, BMP, PRO ####[address] [address] Potassium [Moles/Vol] 4.6 mmol/L Normal 3.5-5.0 [facility] ([place]) Comment on above: Performed By: #### A DIFF, ANEU, PBNP, MG, GFR, CBC, BMP, PRO ####[address] [address] Sodium [Moles/Vol] 134 mmol/L Low 136-145 [facility] ([place] Comment on above: Performed By: #### A DIFF, ANEU, PBNP, MG, GFR, CBC, BMP, PRO ####[address] [address] Urea nitrogen [Mass/Vol] 96.0 mg/dL High 8.0-22.0 [facility] ([place] Comment on above: Performed By: #### A DIFF, ANEU, PBNP, MG, GFR, CBC, BMP, PRO ####[place] [address] CBCon 06-10-2023 Erythrocyte distribution width (RBC) [Ratio] 15.4 % Normal 11.5-15.5 [facility] ([place] Comment on above: Performed By: #### A DIFF, ANEU, PBNP, MG, GFR, CBC, BMP, PRO ####[place] [address] Hematocrit (Bld) [Volume fraction] 26.1 % Low 40.0-52.0 [facility] ([place] Comment on above: Performed By: #### A DIFF, ANEU, PBNP, MG, GFR, CBC, BMP, PRO ####[place] [address] Hgb 8.7 G/dL Low 13.0-17.5 [facility] ([place] Comment on above: Performed By: #### A DIFF, ANEU, PBNP, MG, GFR, CBC, BMP, PRO ####[place] [address] MCH (RBC) [Entitic mass] 28.8 pg Normal 27.0-33.0 [facility] ([place] Comment on above: Performed By: #### A DIFF, ANEU, PBNP, MG, GFR, CBC, BMP, PRO ####[place] [address] MCHC 33.3 G/dL Normal 32.0-36.0 [facility] ([place] Comment on above: Performed By: #### A DIFF, ANEU, PBNP, MG, GFR, CBC, BMP, PRO ####[place] [address] MCV (RBC) [Entitic vol] 86.6 fL Normal 81.0-100.0 [facility] ([place]) Comment on above: Performed By: #### A DIFF, ANEU, PBNP, MG, GFR, CBC, BMP, PRO ####[place] [address] Platelet 139 10 3/mcL Low 150-450 [facility] ([place] Comment on above: Performed By: #### A DIFF, ANEU, PBNP, MG, GFR, CBC, BMP, PRO ####[place] [address] Platelet mean volume (Bld) [Entitic vol] 9.1 fL Normal 6.4-10.5 [facility] ([place] Comment on above: Performed By: #### A DIFF, ANEU, PBNP, MG, GFR, CBC, BMP, PRO ####[place] [address] RBC 3.02 10 6/mcL Low 4.50-6.00 [facility] ([place] Comment on above: Performed By: #### A DIFF, ANEU, PBNP, MG, GFR, CBC, BMP, PRO ####[place] [address] WBC 13.8 10 3/mcL High 4.5-10.8 [facility] ([place] Comment on above: Performed By: #### A DIFF, ANEU, PBNP, MG, GFR, CBC, BMP, PRO ####[place] [address] LABORATORYOrdered By: Mary Veronica on 06-10-2023 Blood Glucose Testing Reason Routine (06/10/23 8:59 PM) [facility] Work Phone: LABORATORYOrdered By: SYSTEM SYSTEM on [...] [Vol rate/Area] 40 ml/min/1.73sqm Invalid Interpretation Code [facility] Comment on above: Interpretive Data: GFR [...] [Vol rate/Area] 33 ml/min/1.73sqm Invalid Interpretation Code [facility] Comment on above: Interpretive Data: GFR [...] 212 mg/dL High 82 - 115 mg/dL [facility] Hematocrit (Bld) [Volume fraction] 26.1 % [...] Comment on above: Interpretive Data: T rhonda [employer] (CHEST, 1992, 102:[id number]) recommended therapeutic range for oral anticoagulant therapy is: LOW RISK: Prophylaxis of venous thrombosis INR: 2.0-3.0 Treatment of pulmonary embolism 2.0-3.0 Prevention of systemic embolism 2.0-3.0 HIGH RISK: Mechanical prosthetic valves 2.5-3.5 MGon 06-10-2023 Magnesium [Mass/Vol] 2.5 mg/dL High 1.6-2.4 [facility] ([place]) Comment on above: Performed By: #### A DIFF, ANEU, PBNP, MG, GFR, CBC, BMP, PRO ####[facility] [place] [id number] PBNPon 06-10-2023 Natriuretic peptide B (Bld) [Mass/Vol] 4528 pg/mL High 0-1800 [facility] ([place] Comment on above: Result Comment: NT-p roBNP results of less than 300 pg/mL effectivelyrules out acute congestive heart failure with 99% negative predictive value. Performed By: #### A DIFF, ANEU, PBNP, MG, GFR, CBC, BMP, PRO ####[address] [address] PROon 06-10-2023 INR Coag (PPP) [Relative time] 1.1 {INR} Normal [facility] ([place] Comment on above: Result Comment: [employer] (CHEST, 1991, [id number])recommended therapeutic range for oral anticoagulant therapy is:LOW RISK: Prophylaxis of venous thrombosis INR: 2.0-3.0 Treatment of pulmonary embolism 2.0-3.0 Prevention of systemic embolism 2.0-3.0HIGH RISK: Mechanical prosthetic valves 2.5-3.5 Performed By: #### A DIFF, ANEU, PBNP, MG, GFR, CBC, BMP, PRO ####[place] [address] PT Coag (PPP) [Time] 12.7 s Normal 9.0-14.2 [facility] ([place]) Comment on above: Result Comment: Effe ctive 09/24/07, Protime results may be affected by some antibiotics (i.e. Ciprofloxacin, Azithromycin, Bactrim) which may potentiate the action of oral anticoagulants, with further increases in Protime/INR. Performed By: #### A DIFF, ANEU, PBNP, MG, GFR, CBC, BMP, PRO ####[place] [address] .Auto Diffon 06-09-2023 Basophil, Absolute 0.0 10 3/mcL Normal 0.0-0.3 [facility] ([place] Comment on above: Performed By: #### A DIFF, GFR, CMP, ANEU, CBC ####[place] [address] Basophils/100 WBC (Bld) 0.1 % Normal 0.0-2.5 [facility] ([place] Comment on above: Performed By: #### A DIFF, GFR, CMP, ANEU, CBC ####[place] [address] Eosinophil, Absolute 0.0 10 3/mcL Normal 0.0-0.7 [facility] ([place] Comment on above: Performed By: #### A DIFF, GFR, CMP, ANEU, CBC ####[address] [address] Eosinophils/100 WBC (Bld) 0.0 % Normal 0.0-6.0 [facility] ([place] Comment on above: Performed By: #### A DIFF, GFR, CMP, ANEU, CBC ####[address] [address] Lymphocyte, Absolute 0.4 10 3/mcL Low 0.9-4.3 [facility] ([place] Comment on above: Performed By: #### A DIFF, GFR, CMP, ANEU, CBC ####[address] [address] Lymphocytes/100 WBC (Bld) 8.7 % Low 20.0-40.0 [facility] ([place] Comment on above: Performed By: #### A DIFF, GFR, CMP, ANEU, CBC ####[address] [address] Monocyte, Absolute 0.0 10 3/mcL Low 0.1-1.4 [facility] ([place] Comment on above: Performed By: #### A DIFF, GFR, CMP, ANEU, CBC ####[address] [address] Monocytes/100 WBC (Bld) 0.6 % Low 2.0-13.0 [facility] ([place] Comment on above: Performed By: #### A DIFF, GFR, CMP, ANEU, CBC ####[address] [address] Neutrophils/100 WBC (Bld) 90.6 % High 50.0-75.0 [facility] ([place] Comment on above: Performed By: #### A DIFF, GFR, CMP, ANEU, CBC ####[address] [address] Basophil, Absolute 0.0 10 3/mcL Normal 0.0-0.3 [facility] ([place] Comment on above: Performed By: #### G FR, PBNP, MG, TROPHS, PHOS, ANEU, CBC, BMP, ADIFF ####[address] [address] Basophils/100 WBC (Bld) 0.2 % Normal 0.0-2.5 [facility] ([place]) Comment on above: Performed By: #### G FR, PBNP, MG, TROPHS, PHOS, ANEU, CBC, BMP, ADIFF ####[address] [address] Eosinophil, Absolute 0.0 10 3/mcL Normal 0.0-0.7 [facility] ([place]) Comment on above: Performed By: #### G FR, PBNP, MG, TROPHS, PHOS, ANEU, CBC, BMP, ADIFF ####[address] [address] Eosinophils/100 WBC (Bld) 0.1 % Normal 0.0-6.0 [facility] ([place]) Comment on above: Performed By: #### G FR, PBNP, MG, TROPHS, PHOS, ANEU, CBC, BMP, ADIFF ####[address] [address] Lymphocyte, Absolute 0.4 10 3/mcL Low 0.9-4.3 [facility] ([place]) Comment on above: Performed By: #### G FR, PBNP, MG, TROPHS, PHOS, ANEU, CBC, BMP, ADIFF ####[address] [address] Lymphocytes/100 WBC (Bld) 8.5 % Low 20.0-40.0 [facility] ([place]) Comment on above: Performed By: #### G FR, PBNP, MG, TROPHS, PHOS, ANEU, CBC, BMP, ADIFF ####[address] [address] Monocyte, Absolute 0.0 10 3/mcL Low 0.1-1.4 [facility] [place] Comment on above: Performed By: #### G FR, PBNP, MG, TROPHS, PHOS, ANEU, CBC, BMP, ADIFF ####[address] [address] Monocytes/100 WBC (Bld) 0.7 % Low 2.0-13.0 [facility] ([place]) Comment on above: Performed By: #### G FR, PBNP, MG, TROPHS, PHOS, ANEU, CBC, BMP, ADIFF ####[address] [address] Neutrophils/100 WBC (Bld) 90.5 % High 50.0-75.0 [facility] [place] Comment on above: Performed By: #### G FR, PBNP, MG, TROPHS, PHOS, ANEU, CBC, BMP, ADIFF ####[address] [address] .GFRon 06-09-2023 GFR Non- 34 ml/min/1.73sqm Normal [facility] ([place] Comment on above: Result Comment: GFR Population [...] #### A DIFF, GFR, CMP, ANEU, CBC ####[address] [address] GFR 41 ml/min/1.73sqm Normal [facility] ([place] Comment on above: Result Comment: GFR Population [...] #### A DIFF, GFR, CMP, ANEU, CBC ####[place] [address] GFR Non- 33 ml/min/1.73sqm Normal [facility] ([place] Comment on above: Result Comment: GFR Population [...] MG, TROPHS, PHOS, ANEU, CBC, BMP, ADIFF ####[place] [address] GFR 40 ml/min/1.73sqm [facility] ([place]) Comment on above: Result Comment: GFR Population [...] MG, TROPHS, PHOS, ANEU, CBC, BMP, ADIFF ####[address] [address] .NEUABSon 06-09-2023 Neutrophil, Absolute 4.1 10 3/mcL Normal 2.3-8.1 [facility] [place] Comment on above: Performed By: #### A DIFF, GFR, CMP, ANEU, CBC ####[place] [address] Neutrophil, Absolute 4.3 10 3/mcL Normal 2.3-8.1 [facility] ([place] Comment on above: Performed By: #### G FR, PBNP, MG, TROPHS, PHOS, ANEU, CBC, BMP, ADIFF ####[place] [address] ABO/Rh (Gel)on 06-09-2023 ABO/Rh Interp Negative Invalid Interpretation Code [facility] [place] Comment on above: Performed By: #### A BSGEL, ABOGEL ####[place] [address] ABS (Gel)on 06-09-2023 ABSC Interp (Gel) Negative Normal [facility] ([place] Comment on above: Performed By: #### A BSGEL, ABOGEL ####[place] [address] BMPon 06-09-2023 BUN/Creatinine Ratio 39.5 ratio High 10.0-22.0 [facility] ([place] Comment on above: Performed By: #### G FR, PBNP, MG, TROPHS, PHOS, ANEU, CBC, BMP, ADIFF ####[place] [address] Calcium [Mass/Vol] 8.6 mg/dL Low 8.7-10.4 [facility] ([place] Comment on above: Performed By: #### G FR, PBNP, MG, TROPHS, PHOS, ANEU, CBC, BMP, ADIFF ####[place] [address] Chloride [Moles/Vol] 107 mmol/L Normal 98-110 [facility] [place] Comment on above: Performed By: #### G FR, PBNP, MG, TROPHS, PHOS, ANEU, CBC, BMP, ADIFF ####[address] [address] CO2 [Moles/Vol] 23 mmol/L Normal 22-32 [facility] [place] Comment on above: Performed By: #### G FR, PBNP, MG, TROPHS, PHOS, ANEU, CBC, BMP, ADIFF ####[address] [address] Creatinine [Mass/Vol] 1.95 mg/dL High 0.60-1.40 [facility] ([place] Comment on above: Performed By: #### G FR, PBNP, MG, TROPHS, PHOS, ANEU, CBC, BMP, ADIFF ####[place] [address] Electrolyte Balance 9.0 mEq/L Normal 4.0-15.0 [facility] [place] Comment on above: Performed By: #### G FR, PBNP, MG, TROPHS, PHOS, ANEU, CBC, BMP, ADIFF ####[address] [address] Glucose [Mass/Vol] 366 mg/dL High 82-115 [facility] ([place] Comment on above: Performed By: #### G FR, PBNP, MG, TROPHS, PHOS, ANEU, CBC, BMP, ADIFF ####[address] [address] Potassium [Moles/Vol] 4.7 mmol/L Normal 3.5-5.0 [facility] ([place] Comment on above: Performed By: #### G FR, PBNP, MG, TROPHS, PHOS, ANEU, CBC, BMP, ADIFF ####[address] [address] Sodium [Moles/Vol] 139 mmol/L Normal 136-145 [facility] ([place] Comment on above: Performed By: #### G FR, PBNP, MG, TROPHS, PHOS, ANEU, CBC, BMP, ADIFF ####[address] [address] Urea nitrogen [Mass/Vol] 77.0 mg/dL High 8.0-22.0 [facility] ([place] Comment on above: Performed By: #### G FR, PBNP, MG, TROPHS, PHOS, ANEU, CBC, BMP, ADIFF ####[place] [address] CBCon 06-09-2023 Erythrocyte distribution width (RBC) [Ratio] 15.7 % High 11.5-15.5 [facility] ([place] Comment on above: Performed By: #### A DIFF, GFR, CMP, ANEU, CBC ####[place] [address] Hematocrit (Bld) [Volume fraction] 20.8 % Low 40.0-52.0 [facility] [place] Comment on above: Performed By: #### A DIFF, GFR, CMP, ANEU, CBC ####[place] [address] Hgb 7.1 G/dL Low 13.0-17.5 [facility] ([place] Comment on above: Performed By: #### A DIFF, GFR, CMP, ANEU, CBC ####[place] [address] MCH (RBC) [Entitic mass] 29.1 pg Normal 27.0-33.0 [facility] [place] Comment on above: Performed By: #### A DIFF, GFR, CMP, ANEU, CBC ####[place] [address] MCHC 34.1 G/dL Normal 32.0-36.0 [facility] ([place] Comment on above: Performed By: #### A DIFF, GFR, CMP, ANEU, CBC ####[place] [address] MCV (RBC) [Entitic vol] 85.3 fL Normal 81.0-100.0 [facility] ([place] Comment on above: Performed By: #### A DIFF, GFR, CMP, ANEU, CBC ####[place] [address] Platelet 108 10 3/mcL Low 150-450 [facility] ([place] Comment on above: Performed By: #### A DIFF, GFR, CMP, ANEU, CBC ####[place] [address] Platelet mean volume (Bld) [Entitic vol] 9.0 fL Normal 6.4-10.5 [facility] [place] Comment on above: Performed By: #### A DIFF, GFR, CMP, ANEU, CBC ####[place] [address] RBC 2.43 10 6/mcL Low 4.50-6.00 [facility] ([place] Comment on above: Performed By: #### A DIFF, GFR, CMP, ANEU, CBC ####[place] [address] WBC 4.5 10 3/mcL Normal 4.5-10.8 [facility] [place] Comment on above: Performed By: #### A DIFF, GFR, CMP, ANEU, CBC ####[place] [address] Erythrocyte distribution width (RBC) [Ratio] 15.8 % High 11.5-15.5 [facility] ([place] Comment on above: Performed By: #### G FR, PBNP, MG, TROPHS, PHOS, ANEU, CBC, BMP, ADIFF ####[place] [address] Hematocrit (Bld) [Volume fraction] 21.5 % Low 40.0-52.0 [facility] [place] Comment on above: Performed By: #### G FR, PBNP, MG, TROPHS, PHOS, ANEU, CBC, BMP, ADIFF ####[place] [address] Hgb 7.2 G/dL Low 13.0-17.5 [facility] ([place] Comment on above: Performed By: #### G FR, PBNP, MG, TROPHS, PHOS, ANEU, CBC, BMP, ADIFF ####[address] [place] [address] MCH (RBC) [Entitic mass] 28.9 pg Normal 27.0-33.0 [facility] ([place] Comment on above: Performed By: #### G FR, PBNP, MG, TROPHS, PHOS, ANEU, CBC, BMP, ADIFF ####[place] [address] MCHC 33.7 G/dL Normal 32.0-36.0 [facility] ([place] Comment on above: Performed By: #### G FR, PBNP, MG, TROPHS, PHOS, ANEU, CBC, BMP, ADIFF ####[place] [address] MCV (RBC) [Entitic vol] 85.8 fL Normal 81.0-100.0 [facility] ([place] Comment on above: Performed By: #### G FR, PBNP, MG, TROPHS, PHOS, ANEU, CBC, BMP, ADIFF ####[place] [address] Platelet 110 10 3/mcL Low 150-450 [facility] ([place] Comment on above: Performed By: #### G FR, PBNP, MG, TROPHS, PHOS, ANEU, CBC, BMP, ADIFF ####[place] [address] Platelet mean volume (Bld) [Entitic vol] 8.8 fL Normal 6.4-10.5 [facility] [place] Comment on above: Performed By: #### G FR, PBNP, MG, TROPHS, PHOS, ANEU, CBC, BMP, ADIFF ####[place] [address] RBC 2.50 10 6/mcL Low 4.50-6.00 [facility] ([place] Comment on above: Performed By: #### G FR, PBNP, MG, TROPHS, PHOS, ANEU, CBC, BMP, ADIFF ####[place] [address] WBC 4.7 10 3/mcL Normal 4.5-10.8 [facility] ([place] Comment on above: Performed By: #### G FR, PBNP, MG, TROPHS, PHOS, ANEU, CBC, BMP, ADIFF ####[place] [address] CMPon 06-09-2023 Albumin Level 2.6 G/dL Low 3.2-4.8 [facility] ([place] Comment on above: Performed By: #### A DIFF, GFR, CMP, ANEU, CBC ####[place] [address] Albumin/Globulin [Mass ratio] 0.8 {ratio} Low 0.9-1.6 [facility] ([place] Comment on above: Performed By: #### A DIFF, GFR, CMP, ANEU, CBC ####[place] [address] ALP [Catalytic activity/Vol] 61 U/L Normal 38-126 [facility] ([place]) Comment on above: Performed By: #### A DIFF, GFR, CMP, ANEU, CBC ####[place] [address] ALT [Catalytic activity/Vol] 16 U/L Normal 12-55 [facility] ([place] Comment on above: Performed By: #### A DIFF, GFR, CMP, ANEU, CBC ####[place] [address] AST [Catalytic activity/Vol] 14 U/L Normal 8-34 [facility] ([place] Comment on above: Performed By: #### A DIFF, GFR, CMP, ANEU, CBC ####[place] [address] Bili Total 0.40 mg/dL Normal 0.20-1.20 [facility] ([place]) Comment on above: Result Comment: Use of this assay is not recommended for patients undergoing treatment with eltrombopag due to the potential for falsely elevated results. Performed By: #### A DIFF, GFR, CMP, ANEU, CBC ####[place] [address] BUN/Creatinine Ratio 41.1 ratio High 10.0-22.0 [facility] ([place]) Comment on above: Performed By: #### A DIFF, GFR, CMP, ANEU, CBC ####[address] [address] Calcium [Mass/Vol] 8.8 mg/dL Normal 8.7-10.4 [facility] ([place]) Comment on above: Performed By: #### A DIFF, GFR, CMP, ANEU, CBC ####[address] [address] Chloride [Moles/Vol] 104 mmol/L Normal 98-110 [facility] ([place]) Comment on above: Performed By: #### A DIFF, GFR, CMP, ANEU, CBC ####[address] [address] CO2 [Moles/Vol] 28 mmol/L Normal 22-32 [facility] [place] ([place] Comment on above: Performed By: #### A DIFF, GFR, CMP, ANEU, CBC ####[address] [address] Creatinine [Mass/Vol] 1.92 mg/dL High 0.60-1.40 [facility] ([place]) Comment on above: Performed By: #### A DIFF, GFR, CMP, ANEU, CBC ####[place] [address] Electrolyte Balance 9.0 mEq/L Normal 4.0-15.0 [facility] ([place]) Comment on above: Performed By: #### A DIFF, GFR, CMP, ANEU, CBC ####[address] [address] Globulin 3.3 G/dL Normal 1.5-3.8 [facility] [place] ([place]) Comment on above: Performed By: #### A DIFF, GFR, CMP, ANEU, CBC ####[address] [address] Glucose [Mass/Vol] 323 mg/dL High 82-115 [facility] ([place]) Comment on above: Performed By: #### A DIFF, GFR, CMP, ANEU, CBC ####[place] [address] Potassium [Moles/Vol] 4.5 mmol/L Normal 3.5-5.0 [facility] ([place]) Comment on above: Performed By: #### A DIFF, GFR, CMP, ANEU, CBC ####[address] [address] Sodium [Moles/Vol] 141 mmol/L Normal 136-145 [facility] ([place]) Comment on above: Performed By: #### A DIFF, GFR, CMP, ANEU, CBC ####[place] [address] Total Protein 5.9 G/dL Normal 5.7-8.2 [facility] [place] ([place]) Comment on above: Result Comment: No te - New Reference Range in effect 19 Performed By: #### A DIFF, GFR, CMP, ANEU, CBC ####[place] [address] Urea nitrogen [Mass/Vol] 79.0 mg/dL High 8.0-22.0 [facility] [place] ([place] Comment on above: Performed By: #### A DIFF, GFR, CMP, ANEU, CBC ####[address] [address] HHon 06-09-2023 Hematocrit (Bld) [Volume fraction] 24.5 % Low 40.0-52.0 [facility] [place] Comment on above: Performed By: #### H H ####[address] [address] Hgb 8.4 G/dL Low 13.0-17.5 [facility] [place] ([place] Comment on above: Performed By: #### H H ####[address] [address] LABORATORYOrdered By: Francisco Brown on 06-09-2023 Blood Glucose Testing Reason Routine (06/09/23 9:08 PM) [facility] Work Phone: LABORATORYOrdered By: Delia Mueller on 06-09-2023 Blood Glucose Interventions Administered agent to decrease blood sugar (06/09/23 4:35 PM) [facility] Work Phone: Blood Glucose Testing Reason Routine (06/09/23 4:35 PM) [facility] Work Phone: Blood Glucose Interventions Administered agent to decrease blood sugar (06/09/23 12:12 PM) [facility] Work Phone: Blood Glucose Interventions Administered agent to decrease blood sugar (06/09/23 8:10 AM) [facility] Work Phone: LABORATORYOrdered By: SYSTEM SYSTEM on [...] [Vol rate/Area] 34 ml/min/1.73sqm Invalid Interpretation Code [facility] Comment on above: Interpretive Data: GFR [...] ng/L Male: 0-54 ng/L Testing performed on [employer] IM analyzer using direct chemiluminescent technology. LABORATORYOrdered [...] Magnesium [Mass/Vol] 1.5 mg/dL Low 1.6-2.4 [facility] ([place] Comment on above: Performed By: #### G FR, PBNP, MG, TROPHS, PHOS, ANEU, CBC, BMP, ADIFF ####[place] [address] PBNPon 06-09-2023 Natriuretic peptide B (Bld) [Mass/Vol] 2824 pg/mL High 0-1800 [facility] [place] ([place] Comment on above: Result Comment: NT-p roBNP results of less than 300 pg/mL effectivelyrules out acute congestive heart failure with 99% negative predictive value. Performed By: #### G FR, PBNP, MG, TROPHS, PHOS, ANEU, CBC, BMP, ADIFF ####[place] [address] PHOSon 06-09-2023 Phosphate [Mass/Vol] 2.6 mg/dL Normal 2.4-5.1 [facility] [place] Comment on above: Result Comment: No te - New Reference Range in effect 19 Performed By: #### G FR, PBNP, MG, TROPHS, PHOS, ANEU, CBC, BMP, ADIFF ####[place] [address] RBC (Product)on 06-09-2023 RBC Product Ready RBC Ready for Pickup Normal [facility] [place] ([place] Comment on above: Performed By: #### R BCP ####[address] 06-09-2023 High Sensitivity Troponin I 23 ng/L Normal 0-54 [facility] [place] ([place] Comment on above: Result Comment: High Sensitive Troponin I Reference Ranges:Female: 0-34 ng/LMale: 0-54 ng/LTesting performed on [employer] IM analyzer using direct chemiluminescent technology. Performed By: #### G FR, PBNP, MG, TROPHS, PHOS, ANEU, CBC, BMP, ADIFF ####[place] [address] XR CHEST 1 VIEWon 06-09-2023 XR CHEST 1 VIEW Normal [facility] [place] ([place]) .Auto Diffon 06-08-2023 Basophil, Absolute 0.0 10 3/mcL Normal 0.0-0.2 [facility] ([place]) Comment on above: Performed By: #### M DW, TROPHS, ANEU, CBC, ADIFF ####[address] [address] Basophils/100 WBC (Bld) 0.7 % Normal 0.0-2.5 [facility] ([place]) Comment on above: Performed By: #### M DW, TROPHS, ANEU, CBC, ADIFF ####[address] [place], [place] [address] Eosinophil, Absolute 0.1 10 3/mcL Normal 0.0-0.4 [facility] ([place]) Comment on above: Performed By: #### M DW, TROPHS, ANEU, CBC, ADIFF ####[address] [place], [place] [address] Eosinophils/100 WBC (Bld) 2.2 % Normal 0.0-7.0 [facility] [place] ([place]) Comment on above: Performed By: #### M DW, TROPHS, ANEU, CBC, ADIFF ####[address] [place], [place] [address] Lymphocyte, Absolute 1.0 10 3/mcL Normal 0.8-3.9 [facility] ([place]) Comment on above: Performed By: #### M DW, TROPHS, ANEU, CBC, ADIFF ####[address] [place], [place] [address] Lymphocytes/100 WBC (Bld) 15.6 % Normal 10.0-50.0 [facility] [place] ([place]) Comment on above: Performed By: #### M DW, TROPHS, ANEU, CBC, ADIFF ####[address] [place], [place] [address] Monocyte, Absolute 0.4 10 3/mcL Normal 0.2-1.0 [facility] ([place]) Comment on above: Performed By: #### M DW, TROPHS, ANEU, CBC, ADIFF ####[address] [place], [place] [address] Monocytes/100 WBC (Bld) 5.9 % Normal 1.7-13.0 [facility] ([place]) Comment on above: Performed By: #### M DW, TROPHS, ANEU, CBC, ADIFF ####[address] [place], [place] [address] Neutrophils/100 WBC (Bld) 75.6 % Normal 37.0-80.0 [facility] [place] ([place]) Comment on above: Performed By: #### M DW, TROPHS, ANEU, CBC, ADIFF ####[address] [place], [place] [address] Basophil, Absolute 0.0 10 3/mcL Normal 0.0-0.2 [facility] ([place]) Comment on above: Performed By: #### C BC, PBNP, CMP, ADIFF, GFR, ANEU ####[address] [place], [place] [address] Basophils/100 WBC (Bld) 0.5 % Normal 0.0-2.5 [facility] ([place]) Comment on above: Performed By: #### C BC, PBNP, CMP, ADIFF, GFR, ANEU ####[address] [place], [place] [address] Eosinophil, Absolute 0.2 10 3/mcL Normal 0.0-0.4 [facility] ([place]) Comment on above: Performed By: #### C BC, PBNP, CMP, ADIFF, GFR, ANEU ####[address] [place], [place] [address] Eosinophils/100 WBC (Bld) 2.3 % Normal 0.0-7.0 [facility] [place] ([place]) Comment on above: Performed By: #### C BC, PBNP, CMP, ADIFF, GFR, ANEU ####[address] [place], [place] [address] Lymphocyte, Absolute 1.0 10 3/mcL Normal 0.8-3.9 [facility] ([place]) Comment on above: Performed By: #### C BC, PBNP, CMP, ADIFF, GFR, ANEU ####[address] [place], [place] [address] Lymphocytes/100 WBC (Bld) 15.5 % Normal 10.0-50.0 [facility] [place] ([place]) Comment on above: Performed By: #### C BC, PBNP, CMP, ADIFF, GFR, ANEU ####[address] [place], [place] [address] Monocyte, Absolute 0.4 10 3/mcL Normal 0.2-1.0 [facility] ([place] Comment on above: Performed By: #### C BC, PBNP, CMP, ADIFF, GFR, ANEU ####[address] [place], [place] [address] Monocytes/100 WBC (Bld) 6.6 % Normal 1.7-13.0 [facility] ([place] Comment on above: Performed By: #### C BC, PBNP, CMP, ADIFF, GFR, ANEU ####[address] [place], [place] [address] Neutrophils/100 WBC (Bld) 75.1 % Normal 37.0-80.0 [facility] [place] Comment on above: Performed By: #### C BC, PBNP, CMP, ADIFF, GFR, ANEU ####[address] [place], [place] [address] .GFRon 06-08-2023 GFR Non- 28 ml/min/1.73sqm Normal [facility] [place] ([place] Comment on above: Result Comment: GFR Population [...] BC, PBNP, CMP, ADIFF, GFR, ANEU ####[address] [place], [place] [address] GFR 34 ml/min/1.73sqm Normal [facility] [place] ([place] Comment on above: Result Comment: GFR Population [...] PBNP, CMP, ADIFF, GFR, ANEU ####[address] [place], [place] [address] .MDWon 06-08-2023 Monocyte Distribution Width 19.65 Normal 0.00-20.00 [facility] [place] ([place] Comment on above: Result Comment: For ED adult patients suspected of sepsis, MDW<=20.0 does not rule out sepsis or risk of sepsis Performed By: #### M DW, TROPHS, ANEU, CBC, ADIFF ####[address] [place], [place] [address] .NEUABSon 06-08-2023 Neutrophil, Absolute 5.0 10 3/mcL Normal 2.9-6.2 [facility] [place] Comment on above: Performed By: #### M DW, TROPHS, ANEU, CBC, ADIFF ####[address] [place], [place] [address] Neutrophil, Absolute 5.1 10 3/mcL Normal 2.9-6.2 [facility] ([place] Comment on above: Performed By: #### C BC, PBNP, CMP, ADIFF, GFR, ANEU ####[address] [place], [place] [address] ABGon 06-08-2023 Base excess Calc (Bld) [Moles/Vol] 2.0 mmol/L Normal -2.4-2.3 [facility] [place] Comment on above: Order Comment: On ro om air Performed By: #### A BG ####[address] [place], [place] [address] CO2 [Moles/Vol] 28 mmol/L High 19-24 [facility] [place] Comment on above: Order Comment: On ro om air Performed By: #### A BG ####[address] [place], [place] [address] HCO3 (Bld) [Moles/Vol] 26.7 mmol/L High 22.0-26.0 [facility] ([place] Comment on above: Order Comment: On ro om air Performed By: #### A BG ####[address] [place], [place] [address] Oxygen (Bld) [Partial pressure] 147.0 mm[Hg] High 80.0-100.0 [facility] [place] Comment on above: Order Comment: On ro om air Performed By: #### A BG ####[address] [place], [place] [address] Oxygen saturation in Blood 99 % High 95-98 [facility] [place] Comment on above: Order Comment: On ro om air Performed By: #### A BG ####[address] [place], [place] [address] pCO2 40.4 mmHg Normal 35.0-45.0 [facility] [place] Comment on above: Order Comment: On ro om air Performed By: #### A BG ####[address] [place], [place] [address] pH (Bld) 7.43 [pH] Normal 7.35-7.45 [facility] [place] Comment on above: Order Comment: On ro om air Performed By: #### A BG ####[address] [place], [place] [address] CBCon 06-08-2023 Erythrocyte distribution width (RBC) [Ratio] 15.6 % High 11.5-14.5 [facility] [place] ([place] Comment on above: Performed By: #### M DW, TROPHS, ANEU, CBC, ADIFF ####[address] [place], [place] [address] Hematocrit (Bld) [Volume fraction] 22.5 % Low 42.0-52.0 [facility] [place] Comment on above: Performed By: #### M TIFFANY TROPHS, ANEU, CBC, ADIFF ####[address] [place], [place] [address] Hgb 7.6 G/dL Low 14.0-18.0 [facility] [place] Comment on above: Performed By: #### M TIFFANY TROPHS, ANEU, CBC, ADIFF ####[address] [place], [place] [address] MCH (RBC) [Entitic mass] 29.0 pg Normal 27.0-31.2 [facility] [place] Comment on above: Performed By: #### M TIFFANY TROPHS, ANEU, CBC, ADIFF ####[address] [place], [place] [address] MCHC 33.6 G/dL Normal 31.8-35.4 [facility] [place] Comment on above: Performed By: #### Elidia ALLEN TROPHS, ANEU, CBC, ADIFF ####[address] [place], [place] [address] MCV (RBC) [Entitic vol] 86.3 fL Normal 80.0-94.0 [facility] ([place] Comment on above: Performed By: #### M TIFFANY TROPHS, ANEU, CBC, ADIFF ####[address] [place], [place] [address] Platelet 140 10 3/mcL Normal 130-400 [facility] [place] Comment on above: Performed By: #### M TIFFANY TROPHS, ANEU, CBC, ADIFF ####[address] [place], [place] [address] Platelet mean volume (Bld) [Entitic vol] 8.9 fL Normal 7.4-10.4 [facility] [place] Comment on above: Performed By: #### Elidia ALLEN TROPHS, ANEU, CBC, ADIFF ####[address] [place], [place] [address] RBC 2.60 10 6/mcL Low 4.04-6.13 [facility] [place] Comment on above: Performed By: #### M DW, TROPHS, ANEU, CBC, ADIFF ####[address] [place], [place] [address] WBC 6.6 10 3/mcL Normal 4.6-10.8 [facility] [place] Comment on above: Performed By: #### M DW, TROPHS, ANEU, CBC, ADIFF ####[address] [place], [place] [address] Erythrocyte distribution width (RBC) [Ratio] 15.3 % High 11.5-14.5 [facility] [place] Comment on above: Performed By: #### C BC, PBNP, CMP, ADIFF, GFR, ANEU ####[address] [place], [place] [address] Hematocrit (Bld) [Volume fraction] 23.0 % Low 42.0-52.0 [facility] [place] Comment on above: Performed By: #### C BC, PBNP, CMP, ADIFF, GFR, ANEU ####[address] [place], [place] [address] Hgb 7.7 G/dL Low 14.0-18.0 [facility] [place] Comment on above: Performed By: #### C BC, PBNP, CMP, ADIFF, GFR, ANEU ####[address] [place], [place] [address] MCH (RBC) [Entitic mass] 29.0 pg Normal 27.0-31.2 [facility] [place] Comment on above: Performed By: #### C BC, PBNP, CMP, ADIFF, GFR, ANEU ####[address] [place], [place] [address] MCHC 33.5 G/dL Normal 31.8-35.4 [facility] [place] Comment on above: Performed By: #### C BC, PBNP, CMP, ADIFF, GFR, ANEU ####[address] [place], [place] [address] MCV (RBC) [Entitic vol] 86.4 fL Normal 80.0-94.0 [facility] ([place] Comment on above: Performed By: #### C BC, PBNP, CMP, ADIFF, GFR, ANEU ####[address] [place], [place] [address] Platelet 141 10 3/mcL Normal 130-400 [facility] [place] Comment on above: Performed By: #### C BC, PBNP, CMP, ADIFF, GFR, ANEU ####[address] [place], [place] [address] Platelet mean volume (Bld) [Entitic vol] 8.8 fL Normal 7.4-10.4 [facility] [place] Comment on above: Performed By: #### C BC, PBNP, CMP, ADIFF, GFR, ANEU ####[address] [place], [place] [address] RBC 2.66 10 6/mcL Low 4.04-6.13 [facility] [place] Comment on above: Performed By: #### C BC, PBNP, CMP, ADIFF, GFR, ANEU ####[address] [place], [place] [address] WBC 6.7 10 3/mcL Normal 4.6-10.8 [facility] [place] Comment on above: Performed By: #### C BC, PBNP, CMP, ADIFF, GFR, ANEU ####[address] [place], [place] [address] CMPon 06-08-2023 Albumin Level 2.7 G/dL Low 3.4-4.8 [facility] [place] Comment on above: Performed By: #### C BC, PBNP, CMP, ADIFF, GFR, ANEU ####[address] [place], [place] [address] Albumin/Globulin [Mass ratio] 0.8 {ratio} Low 1.1-2.5 [facility] [place] Comment on above: Performed By: #### C BC, PBNP, CMP, ADIFF, GFR, ANEU ####[address] [place], [place] [address] ALP [Catalytic activity/Vol] 70 U/L Normal 40-135 [facility] [place] Comment on above: Performed By: #### C BC, PBNP, CMP, ADIFF, GFR, ANEU ####[address] [place], [place] [address] ALT [Catalytic activity/Vol] 26 U/L Normal 16-63 [facility] [place] Comment on above: Performed By: #### C BC, PBNP, CMP, ADIFF, GFR, ANEU ####[address] [place], [place] [address] AST [Catalytic activity/Vol] 16 U/L Normal 10-40 [facility] [place] Comment on above: Performed By: #### C BC, PBNP, CMP, ADIFF, GFR, ANEU ####[address] [place], [place] [address] Bili Total 0.3 mg/dL Normal 0.2-1.0 [facility] [place] Comment on above: Result Comment: Use of this assay is not recommended for patients undergoing treatment with eltrombopag due to the potential for falsely elevated results. Performed By: #### C BC, PBNP, CMP, ADIFF, GFR, ANEU ####[address] [place], [place] [address] BUN/Creatinine Ratio 34 ratio High 7-27 [facility] ([place] Comment on above: Performed By: #### C BC, PBNP, CMP, ADIFF, GFR, ANEU ####[address] [place], [place] [address] Calcium [Mass/Vol] 9.0 mg/dL Normal 8.4-10.2 [facility] ([place] Comment on above: Performed By: #### C BC, PBNP, CMP, ADIFF, GFR, ANEU ####[address] [place], [place] [address] Chloride [Moles/Vol] 108 mmol/L High 98-107 [facility] ([place] Comment on above: Performed By: #### C BC, PBNP, CMP, ADIFF, GFR, ANEU ####[address] [place], [place] [address] CO2 [Moles/Vol] 29 mmol/L Normal 23-31 [facility] [place] Comment on above: Performed By: #### C BC, PBNP, CMP, ADIFF, GFR, ANEU ####[address] [place], [place] [address] Creatinine [Mass/Vol] 2.24 mg/dL High 0.70-1.30 [facility] ([place] Comment on above: Performed By: #### C BC, PBNP, CMP, ADIFF, GFR, ANEU ####[address] [place], [place] [address] Electrolyte Balance 8.0 mEq/L Normal 4.0-15.0 [facility] [place] Comment [place] above: Performed By: #### C BC, PBNP, CMP, ADIFF, GFR, ANEU ####[address] [place], [place] [address] Globulin 3.5 G/dL Normal [facility] [place] Comment on above: Performed By: #### C BC, PBNP, CMP, ADIFF, GFR, ANEU ####[address] [place], [place] [address] Glucose [Mass/Vol] 251 mg/dL High 83-110 [facility] ([place] Comment on above: Performed By: #### C BC, PBNP, CMP, ADIFF, GFR, ANEU ####[address] [place], [place] [address] Potassium [Moles/Vol] 5.0 mmol/L Normal 3.5-5.1 [facility] ([place] Comment on above: Performed By: #### C BC, PBNP, CMP, ADIFF, GFR, ANEU ####[address] [place], [place] [address] Sodium [Moles/Vol] 145 mmol/L Normal 136-145 [facility] ([place] Comment on above: Performed By: #### C BC, PBNP, CMP, ADIFF, GFR, ANEU ####[address] [place], [place] [address] Total Protein 6.2 G/dL Low 6.4-8.2 [facility] [place] Comment on above: Performed By: #### C BC, PBNP, CMP, ADIFF, GFR, ANEU ####[address] [place], [place] [address] Urea nitrogen [Mass/Vol] 76 mg/dL High 7-18 [facility] [place] Comment on above: Performed By: #### C BC, PBNP, CMP, ADIFF, GFR, ANEU ####[address] [place], [place] [address] LABORATORYOrdered By: Javier Vega on 06-08-2023 Base [...] ng/L Male: 0-76 ng/L Testing performed on Xanofi using a homogeneous sandwich chemiluminescent immunoassay based on [employer] technology. Basophil, Absolute 0.0 103/mcL Normal 0.0 [...] ng/L Male: 0-76 ng/L Testing performed on [employer] using a homogeneous sandwich chemiluminescent immunoassay based on [employer] technology. WBC (Bld) [#/Vol] 6.6 103/mcL Normal [...] B (Bld) [Mass/Vol] 2501 pg/mL High 0-450 [facility] [place] Comment on above: Result Comment: NT-p roBNP results of less than 300 pg/mL effectivelyrules out acute congestive heart failure with 99% negative predictive value. Performed By: #### C BC, PBNP, CMP, ADIFF, GFR, ANEU ####[address] [place], [place] [address] TROPHSon 06-08-2023 High Sensitivity Troponin I 30 ng/L Normal 0-76 [facility] [place] Comment on above: Result Comment: High Sensitive Troponin I Reference Ranges:Female: 0-51 ng/LMale: 0-76 ng/LTesting performed on Dimension EXL using a homogeneous sandwich chemiluminescent immunoassay based on [employer] technology. Performed By: #### T ROP ####[address] [place], [place] [address] High Sensitivity Troponin I 30 ng/L Normal 0-76 [facility] [place] Comment on above: Result Comment: High Sensitive Troponin I Reference Ranges:Female: 0-51 ng/LMale: 0-76 ng/LTesting performed on Dimension EXL using a homogeneous sandwich chemiluminescent immunoassay based on [employer] technology. Performed By: #### M DW, TROPHS, ANEU, CBC, ADIFF ####[address] [place], [place] [address] XR CHEST 1 VIEWon 06-08-2023 XR CHEST 1 VIEW Normal [facility] [place] .Auto Diffon 05-25-2023 Basophil, Absolute 0.0 10 3/mcL Normal 0.0-0.2 [facility] ([place] Comment on above: Performed By: #### G FR, PBNP, CBC, ADIFF, TROPHS, BMP, MDW, ANEU ####[address] [place], [place] [address] Basophils/100 WBC (Bld) 0.4 % Normal 0.0-2.5 A [facility] ([place] Comment on above: Performed By: #### G FR, PBNP, CBC, ADIFF, TROPHS, BMP, MDW, ANEU ####[address] [place], [place] [address] Eosinophil, Absolute 0.2 10 3/mcL Normal 0.0-0.4 [facility] ([place] Comment on above: Performed By: #### G FR, PBNP, CBC, ADIFF, TROPHS, BMP, MDW, ANEU ####[address] [place], [place] [address] Eosinophils/100 WBC (Bld) 3.5 % Normal 0.0-7.0 [facility] [place] ([place] Comment on above: Performed By: #### G FR, PBNP, CBC, ADIFF, TROPHS, BMP, MDW, ANEU ####[address] [place], [place] [address] Lymphocyte, Absolute 0.8 10 3/mcL Normal 0.8-3.9 [facility] ([place]) Comment on above: Performed By: #### G FR, PBNP, CBC, ADIFF, TROPHS, BMP, MDW, ANEU ####[address] [place], [place] [address] Lymphocytes/100 WBC (Bld) 11.4 % Normal 10.0-50.0 [facility] [place] ([place] Comment on above: Performed By: #### G FR, PBNP, CBC, ADIFF, TROPHS, BMP, MDW, ANEU ####[address] [place], [place] [address] Monocyte, Absolute 0.4 10 3/mcL Normal 0.2-1.0 [facility] ([place]) Comment on above: Performed By: #### G FR, PBNP, CBC, ADIFF, TROPHS, BMP, MDW, ANEU ####[address] [place], [place] [address] Monocytes/100 WBC (Bld) 5.9 % Normal 1.7-13.0 [facility] ([place]) Comment on above: Performed By: #### G FR, PBNP, CBC, ADIFF, TROPHS, BMP, MDW, ANEU ####[address] [place], [place] [address] Neutrophils/100 WBC (Bld) 78.8 % Normal 37.0-80.0 [facility] [place] Comment [place] above: Performed By: #### G FR, PBNP, CBC, JEFERSON, SNEHA, JAVIER, RAJAT, ANEU ####[address] [place], [place] [address] .GFRon 05-25-2023 GFR 45 ml/min/1.73sqm Normal [facility] [place] ([place] Comment on above: Result Comment: GFR Population [...] CBC, ADDEE, TROPHNia, JAVIER, RAJAT, ANEU ####[address] [place], [place] [address] GFR Non- 37 ml/min/1.73sqm Normal [facility] [place] Comment on above: Result Comment: GFR Population [...] PBNP, CBC, ADIFF, TROPHS, BMP, MDW, ANEU ####[address] [place], [place] [address] .MDWon 05-25-2023 Monocyte Distribution Width 15.89 Normal 0.00-20.00 [facility] [place] Comment on above: Result Comment: For ED adult patients suspected of sepsis, MDW<=20.0 does not rule out sepsis or risk of sepsis Performed By: #### G FR, PBNP, CBC, ADIFF, TROPHS, BMP, MDW, ANEU ####[address] [place], [place] [address] .NEUABSon 05-25-2023 Neutrophil, Absolute 5.3 10 3/mcL Normal 2.9-6.2 [facility] [place] Comment on above: Performed By: #### G FR, PBNP, CBC, ADIFF, TROPHS, BMP, MDW, ANEU ####[address] [place], [place] [address] BMPon 05-25-2023 BUN/Creatinine Ratio 26 ratio Normal 7-27 [facility] ([place] Comment on above: Performed By: #### G FR, PBNP, CBC, ADIFF, TROPHS, BMP, MDW, ANEU ####[address] [place], [place] [address] Calcium [Mass/Vol] 9.3 mg/dL Normal 8.4-10.2 [facility] [place] Comment on above: Performed By: #### G FR, PBNP, CBC, ADIFF, TROPHS, BMP, MDW, ANEU ####[place] [address] [place], [place] [address] Chloride [Moles/Vol] 108 mmol/L High 98-107 [facility] ([place] Comment on above: Performed By: #### G FR, PBNP, CBC, ADIFF, TROPHS, BMP, MDW, ANEU ####[place] [address] [place], [place] [address] CO2 [Moles/Vol] 29 mmol/L Normal 23-31 [facility] [place] Comment on above: Performed By: #### G FR, PBNP, CBC, ADIFF, TROPHS, JAVIER, RAJAT, ANEU ####[address] [place], [place] [address] Creatinine [Mass/Vol] 1.75 mg/dL High 0.70-1.30 [facility] ([place] Comment on above: Performed By: #### G FR, PBNP, CBC, ADIFF, TROPHS, BMP, RAJAT, ANEU ####[address] [place], [place] [address] Electrolyte Balance 7.0 mEq/L Normal 4.0-15.0 [facility] [place] Comment on above: Performed By: #### G FR, PBNP, CBC, ADIFF, TROPHS, JAVIER, RAJAT, ANEU ####[address] [place], [place] [address] Glucose [Mass/Vol] 118 mg/dL High 83-110 [facility] [place] Comment on above: Performed By: #### G FR, PBNP, CBC, ADIFF, TROPHS, JAVIER, RAJAT, ANEU ####[address] [place], [place] [address] Potassium [Moles/Vol] 5.6 mmol/L High 3.5-5.1 [facility] ([place]) Comment on above: Performed By: #### Jerrell FR, PBNP, CBC, ADIFF, TROPHS, JAVIER, RAJAT, ANEU ####[address] [place], [place] [address] Sodium [Moles/Vol] 144 mmol/L Normal 136-145 [facility] ([place]) Comment on above: Performed By: #### G FR, PBNP, CBC, ADIFF, TROPHS, JAVIER, RAJAT, ANEU ####[address] [place], [place] [address] Urea nitrogen [Mass/Vol] 46 mg/dL High 7-18 [facility] ([place]) Comment on above: Performed By: #### G FR, PBNP, CBC, ADIFF, TROPHS, BMP, MDW, ANEU ####Katie [id number] [place], [place] [address] CBCon 05-25-2023 Erythrocyte distribution width (RBC) [Ratio] 16.3 % High 11.5-14.5 [facility] ([place]) Comment on above: Performed By: #### G FR, PBNP, CBC, ADIFF, TROPHS, BMP, MDW, ANEU ####[address] [place], [place] [address] Hematocrit (Bld) [Volume fraction] 28.6 % Low 42.0-52.0 [facility] ([place]) Comment on above: Performed By: #### G FR, PBNP, CBC, ADIFF, TROPHS, BMP, W, ANEU ####[address] [place], [place] [address] Hgb 9.5 G/dL Low 14.0-18.0 [facility] ([place]) Comment on above: Performed By: #### G FR, PBNP, CBC, ADIFF, TROPHS, BMP, MDW, ANEU ####[address] [place], [place] [address] MCH (RBC) [Entitic mass] 28.4 pg Normal 27.0-31.2 [facility] ([place]) Comment on above: Performed By: #### G FR, PBNP, CBC, ADIFF, TROPHS, BMP, MDW, ANEU ####Katie [address] [place], [place] [address] MCHC 33.2 G/dL Normal 31.8-35.4 [facility] ([place]) Comment on above: Performed By: #### G FR, PBNP, CBC, ADIFF, TROPHS, BMP, W, ANEU ####[address] [place], [place] [address] MCV (RBC) [Entitic vol] 85.7 fL Normal 80.0-94.0 [facility] ([place]) Comment on above: Performed By: #### G FR, PBNP, CBC, ADIFF, TROPHS, BMP, MDW, ANEU ####[address] [place], [place] [address] Platelet 82 10 3/mcL Low 130-400 [facility] ([place]) Comment on above: Performed By: #### Jerrell FR, PBNP, CBC, ADDEE, TROPHNia, JAVIER, RAJAT, ANEU ####[address] [place], [place] [address] Platelet mean volume (Bld) [Entitic vol] 8.2 fL Normal 7.4-10.4 [facility] ([place]) Comment on above: Performed By: #### Jerrell FR, PBNP, CBC, ADDEE, TROPHS, JAVIER, RAJAT, ANEU ####[address] [place], [place] [address] RBC 3.34 10 6/mcL Low 4.04-6.13 [facility] ([place] Comment on above: Performed By: #### Jerrell FR, PBNP, CBC, ADDEE, SNEHA, JAVIER, RAJAT, ANEU ####[address] [place], [place] [address] WBC 6.8 10 3/mcL Normal 4.6-10.8 [facility] [place] Comment on above: Performed By: #### Jerrell FR, PBNP, CBC, ADDEE, TROPHS, JAVIER, RAJAT, ANEU ####[address] [place], [place] [address] CVFLURVon 05-25-2023 FLU A PCR Negative Normal Negative [facility] ([place] Comment on above: Performed By: #### Fidencio VFLURV ####[address] [place], [place] [address] FLU B PCR Negative Normal Negative [facility] ([place] Comment on above: Performed By: #### C VFLURV ####[address] [place], [place] [address] RSV PCR Negative Normal Negative [facility] ([place] Comment on above: Performed By: #### C VFLURV ####[address] [place], [place] [address] SARS-CoV-2 (COVID-19) RNA JOSH+probe Ql (Unsp spec) Negative Normal Negative [facility] ([place] Comment on above: Result Comment: Resu lts [...] inaccurate positive results. Performed By: #### C [facility] ####Katie [address] [place], [place] [address] LABORATORYOrdered By: Reed Anna on 05-25-2023 FLUAV [...] ng/L Male: 0-76 ng/L Testing performed on [employer] using a homogeneous sandwich chemiluminescent immunoassay based on [employer] technology. Urea nitrogen [Mass/Vol] 46 mg/dL High 7 - 18 mg/dL AO ADM SS Urea nitrogen/Creatinine [Mass ratio] 26 ratio Normal 7 - 27 ratio AO ADM SS WBC (Bld) [#/Vol] 6.8 103/mcL Normal 4.6 - 10.8 10^3/mcL AO Workflow SS PBNPon 05-25-2023 Natriuretic peptide B (Bld) [Mass/Vol] 2608 pg/mL High 0-450 [facility] ([place]) Comment on above: Result Comment: NT-p roBNP results of less than 300 pg/mL effectivelyrules out acute congestive heart failure with 99% negative predictive value. Performed By: #### G FR, PBNP, CBC, ADIFF, TROPHS, BMP, RAJAT, ANEU ####Katie [address] [place], [place] [address] TROPHSon 05-25-2023 High Sensitivity Troponin I 29 ng/L Normal 0-76 [facility] ([place] Comment on above: Result Comment: High Sensitive Troponin I Reference Ranges:Female: 0-51 ng/LMale: 0-76 ng/LTesting performed on [employer] using a homogeneous sandwich chemiluminescent immunoassay based on [employer] technology. Performed By: #### G FR, PBNP, CBC, JEFERSON, SNEHA, JAVIER, RAJAT, ANEU ####Katie [address] [place], [place] [address] XR CHEST 1 VIEWon 05-25-2023 XR CHEST 1 VIEW Normal [facility] ([place]) .Auto Diffon 05-24-2023 Basophil, Absolute 0.0 10 3/mcL Normal 0.0-0.2 [facility] ([place]) Comment on above: Performed By: #### M JEFERSON THOMAS ANEU, CBC ####[address] [place], [place] [address] Basophils/100 WBC (Bld) 0.6 % Normal 0.0-2.5 A [facility] ([place]) Comment on above: Performed By: #### M JEFERSON THOMAS ANEU, CBC ####[address] [place], [place] [address] Eosinophil, Absolute 0.2 10 3/mcL Normal 0.0-0.4 [facility] ([place] Comment on above: Performed By: #### M JEFERSON THOMAS ANEU, CBC ####Katie [address] [place], [place] [address] Eosinophils/100 WBC (Bld) 3.6 % Normal 0.0-7.0 [facility] ([place] Comment on above: Performed By: #### M JEFERSON THOMAS ANEU, CBC ####Katie [address] [place], [place] [address] Lymphocyte, Absolute 1.0 10 3/mcL Normal 0.8-3.9 [facility] ([place] Comment on above: Performed By: #### M MARTHA ADIFF, ANEU, CBC ####Katie [address] [place], [place] [address] Lymphocytes/100 WBC (Bld) 18.4 % Normal 10.0-50.0 [facility] ([place]) Comment on above: Performed By: #### M ORPH ADIFF, ANEU, CBC ####Katie [address] [place], [place] [address] Monocyte, Absolute 0.4 10 3/mcL Normal 0.2-1.0 [facility] ([place]) Comment on above: Performed By: #### M ORPH, ADIFF, ANEU, CBC ####Katie [address] [place], [place] [address] Monocytes/100 WBC (Bld) 7.1 % Normal 1.7-13.0 A [facility] ([place]) Comment on above: Performed By: #### M ORPH ADIFF, ANEU, CBC ####Katie [address] [place], [place] [address] Neutrophils/100 WBC (Bld) 70.3 % Normal 37.0-80.0 [facility] ([place]) Comment on above: Performed By: #### M ORPH ADIFF, ANEU, CBC ####Katie [address] [place], [place] [address] .GFRon 05-24-2023 GFR 42 ml/min/1.73sqm Normal [facility] ([place] Comment on above: Result Comment: GFR Population [...] #### C JANEEN PBNP, GFR ####[address] [place], [place] [address] GFR Non- 35 ml/min/1.73sqm Normal [facility] ([place] Comment on above: Result Comment: GFR Population [...] #### C MP, PBNP, GFR ####Katie [address] [place], [place] [address] .Morphon 05-24-2023 Platelet Estimate Decreased Normal [facility] ([place] Comment on above: Performed By: #### M JEFERSON THOMAS ANEU, CBC ####Katie [address] [place], [place] [address] .NEUABSon 05-24-2023 Neutrophil, Absolute 3.7 10 3/mcL Normal 2.9-6.2 [facility] [place] Comment on above: Performed By: #### M JEFERSON THOMAS ANEU, CBC ####Katie [address] [place], [place] [address] CBCon 05-24-2023 Erythrocyte distribution width (RBC) [Ratio] 15.7 % High 11.5-14.5 [facility] ([place] Comment on above: Performed By: #### M JEFERSON THOMAS ANEU, CBC ####K[address] [place], [place] [address] Hematocrit (Bld) [Volume fraction] 27.2 % Low 42.0-52.0 [facility] [place] Comment on above: Performed By: #### M ORJEFERSON LOPEZ ANEU, CBC ####[address] [place], [place] [address] Hgb 9.1 G/dL Low 14.0-18.0 [facility] [place] Comment on above: Performed By: #### M JEFERSON THOMAS ANEU, CBC ####K[address] [place], [place] [address] MCH (RBC) [Entitic mass] 28.8 pg Normal 27.0-31.2 [facility] [place] Comment on above: Performed By: #### M ORJEFERSON LOPEZ ANEU, CBC ####Katie [address] [place], [place] [address] MCHC 33.3 G/dL Normal 31.8-35.4 [facility] [place] Comment on above: Performed By: #### M ORJEFERSON LOPEZ ANEU, CBC ####K[address] [place], [place] [address] MCV (RBC) [Entitic vol] 86.3 fL Normal 80.0-94.0 A [facility] ([place] Comment on above: Performed By: #### M JEFERSON THOMAS ANEU, CBC ####K[address] [place], [place] [address] Platelet 77 10 3/mcL Low 130-400 [facility] ([place] Comment on above: Performed By: #### M ORJEFERSON LOPEZ ANEU, CBC ####Katie [address] [place], [place] [address] Platelet mean volume (Bld) [Entitic vol] 8.6 fL Normal 7.4-10.4 [facility] [place] Comment on above: Performed By: #### M ORJEFERSON LOPEZ ANEU, CBC ####Katie [address] [place], [place] [address] RBC 3.15 10 6/mcL Low 4.04-6.13 [facility] [place] Comment on above: Performed By: #### M ORJEFERSON LOPEZ ANEU, CBC ####K[address] [place], [place] [address] WBC 5.3 10 3/mcL Normal 4.6-10.8 [facility] [place] Comment on above: Performed By: #### M JEFERSON THOMAS, ANEU, CBC ####Katie [address] [place], [place] [address] CMPon 05-24-2023 Albumin Level 3.1 G/dL Low 3.4-4.8 [facility] ([place] Comment on above: Performed By: #### C MP, PBNP, GFR ####Katie [address] [place], [place] [address] Albumin/Globulin [Mass ratio] 0.9 {ratio} Low 1.1-2.5 [facility] ([place] Comment on above: Performed By: #### C MP, PBNP, GFR ####[address] [place], [place] [address] ALP [Catalytic activity/Vol] 68 U/L Normal 40-135 [facility] ([place] Comment on above: Performed By: #### C MP, PBNP, GFR ####[address] [place], [place] [address] ALT [Catalytic activity/Vol] 25 U/L Normal 16-63 [facility] ([place] Comment on above: Performed By: #### C MP, PBNP, GFR ####Katie [address] [place], [place] [address] AST [Catalytic activity/Vol] 11 U/L Normal 10-40 [facility] ([place] Comment on above: Performed By: #### C MP, PBNP, GFR ####Katie [address] [place], [place] [address] Bili Total 0.5 mg/dL Normal 0.2-1.0 [facility] ([place] Comment on above: Result Comment: Use of this assay is not recommended for patients undergoing treatment with eltrombopag due to the potential for falsely elevated results. Performed By: #### C MP, PBNP, GFR ####Katie [address] [place], [place] [address] BUN/Creatinine Ratio 21 ratio Normal 7-27 [facility] ([place] Comment on above: Performed By: #### C MP, PBNP, GFR ####K[address] [place], [place] [address] Calcium [Mass/Vol] 8.6 mg/dL Normal 8.4-10.2 [facility] ([place] Comment on above: Performed By: #### C MP, PBNP, GFR ####[address] [place], [place] [address] Chloride [Moles/Vol] 110 mmol/L High 98-107 [facility] ([place] Comment on above: Performed By: #### C MP, PBNP, GFR ####Katie [address] [place], [place] [address] CO2 [Moles/Vol] 31 mmol/L Normal 23-31 [facility] ([place] Comment on above: Performed By: #### C MP, PBNP, GFR ####[address] [place], [place] [address] Creatinine [Mass/Vol] 1.87 mg/dL High 0.70-1.30 [facility] ([place] Comment on above: Performed By: #### C MP, PBNP, GFR ####[address] [place], [place] [address] Electrolyte Balance 5.0 mEq/L Normal 4.0-15.0 [facility] [place] Comment on above: Performed By: #### C MP, PBNP, GFR ####[address] [place], [place] [address] Globulin 3.3 G/dL Normal [facility] ([place] Comment on above: Performed By: #### C MP, PBNP, GFR ####[address] [place], [place] [address] Glucose [Mass/Vol] 177 mg/dL High 83-110 [facility] ([place] Comment on above: Performed By: #### C MP, PBNP, GFR ####[address] [place], [place] [address] Potassium [Moles/Vol] 5.4 mmol/L High 3.5-5.1 [facility] ([place] Comment on above: Performed By: #### C MP, PBNP, GFR ####Katie [address] [place], [place] [address] Sodium [Moles/Vol] 146 mmol/L High 136-145 [facility] ([place] Comment on above: Performed By: #### C MP, PBNP, GFR ####Katie [address] [place], [place] [address] Total Protein 6.4 G/dL Normal 6.4-8.2 [facility] ([place] Comment on above: Performed By: #### C MP, PBNP, GFR ####Katie [address] [place], [place] [address] Urea nitrogen [Mass/Vol] 40 mg/dL High 7-18 [facility] ([place] Comment on above: Performed By: #### C MP, PBNP, GFR ####Katie [address] [place], [place] [address] LABORATORYOrdered By: SYSTEM SYSTEM on 05-24-2023 Albumin [...] B (Bld) [Mass/Vol] 2097 pg/mL High 0-450 [facility] ([place] Comment on above: Result Comment: NT-p roBNP results of less than 300 pg/mL effectivelyrules out acute congestive heart failure with 99% negative predictive value. Performed By: #### C MP, PBNP, GFR ####K[address] [place], [place] [address] .Auto Diffon 05-17-2023 Basophil, Absolute 0.0 10 3/mcL Normal 0.0-0.2 [facility] ([place] Comment on above: Performed By: #### A DIFF, CBC, ANEU ####K[address] [place], [place] [address] Basophils/100 WBC (Bld) 0.4 % Normal 0.0-2.5 A [facility] ([place] Comment on above: Performed By: #### A DIFF, CBC, ANEU ####K[address] [place], [place] [address] Eosinophil, Absolute 0.2 10 3/mcL Normal 0.0-0.4 [facility] ([place] Comment on above: Performed By: #### A DIFF, CBC, ANEU ####Katie [address] [place], [place] [address] Eosinophils/100 WBC (Bld) 3.6 % Normal 0.0-7.0 [facility] [place] Comment on above: Performed By: #### A DIFF, CBC, ANEU ####K[address] [place], [place] [address] Lymphocyte, Absolute 1.2 10 3/mcL Normal 0.8-3.9 [facility] ([place] Comment on above: Performed By: #### A DIFF, CBC, ANEU ####K[address] [place], [place] [address] Lymphocytes/100 WBC (Bld) 19.6 % Normal 10.0-50.0 [facility] [place] Comment on above: Performed By: #### A DIFF, CBC, ANEU ####K[address] [place], [place] [address] Monocyte, Absolute 0.5 10 3/mcL Normal 0.2-1.0 [facility] ([place] Comment on above: Performed By: #### A DIFF, CBC, ANEU ####Katie [address] [place], [place] [address] Monocytes/100 WBC (Bld) 7.9 % Normal 1.7-13.0 [facility] ([place] Comment on above: Performed By: #### A DIFF, CBC, ANEU ####Katie [address] [place], [place] [address] Neutrophils/100 WBC (Bld) 68.5 % Normal 37.0-80.0 [facility] [place] Comment on above: Performed By: #### A DIFF, CBC, ANEU ####Katie [address] [place], [place] [address] .GFRon 05-17-2023 GFR 47 ml/min/1.73sqm Normal [facility] ([place] Comment on above: Result Comment: GFR Population [...] FR, CMP, PBNP, A1C, TSH ####Katie [address] [place], [place] [address] GFR Non- 39 ml/min/1.73sqm Normal [facility] ([place] Comment on above: Result Comment: GFR Population [...] FR, CMP, PBNP, A1C, TSH ####Katie [address] [place], [place] [address] .NEUABSon 05-17-2023 Neutrophil, Absolute 4.3 10 3/mcL Normal 2.9-6.2 [facility] ([place] Comment on above: Performed By: #### A DIFF, CBC, ANEU ####K[address] [place], [place] [address] A1Con 05-17-2023 HbA1c (Bld) [Mass fraction] 7.7 % High 4.3-6.4 [facility] ([place] Comment on above: Performed By: #### G FR, CMP, PBNP, A1C, TSH ####[address] [place], [place] [address] CBCon 05-17-2023 Erythrocyte distribution width (RBC) [Ratio] 15.6 % High 11.5-14.5 [facility] [place] Comment on above: Performed By: #### A DIFF, CBC, ANEU ####Katie [address] [place], [place] [address] Hematocrit (Bld) [Volume fraction] 26.9 % Low 42.0-52.0 [facility] [place] Comment on above: Performed By: #### A DIFF, CBC, ANEU ####K[address] [place], [place] [address] Hgb 9.2 G/dL Low 14.0-18.0 [facility] [place] Comment on above: Performed By: #### A DIFF, CBC, ANEU ####Katie [address] [place], [place] [address] MCH (RBC) [Entitic mass] 29.0 pg Normal 27.0-31.2 [facility] [place] Comment on above: Performed By: #### A DIFF, CBC, ANEU ####K[address] [place], [place] [address] MCHC 34.1 G/dL Normal 31.8-35.4 [facility] [place] Comment on above: Performed By: #### A DIFF, CBC, ANEU ####Katie [address] [place], [place] [address] MCV (RBC) [Entitic vol] 85.0 fL Normal 80.0-94.0 A [facility] ([place] Comment on above: Performed By: #### A DIFF, CBC, ANEU ####Katie [address] [place], [place] [address] Platelet 91 10 3/mcL Low 130-400 [facility] ([place] Comment on above: Performed By: #### A DIFF, CBC, ANEU ####Katie [address] [place], [place] [address] Platelet mean volume (Bld) [Entitic vol] 9.1 fL Normal 7.4-10.4 [facility] [place] Comment on above: Performed By: #### A DIFF, CBC, ANEU ####K[address] [place], [place] [address] RBC 3.16 10 6/mcL Low 4.04-6.13 [facility] [place] Comment on above: Performed By: #### A DIFF, CBC, ANEU ####Katie [address] [place], [place] [address] WBC 6.3 10 3/mcL Normal 4.6-10.8 [facility] [place] Comment on above: Performed By: #### A DIFF, CBC, ANEU ####Katie [address] [place], [place] [address] CMPon 05-17-2023 Albumin Level 3.1 G/dL Low 3.4-4.8 [facility] ([place] Comment on above: Performed By: #### G FR, CMP, PBNP, A1C, TSH ####Katie [address] [place], [place] [address] Albumin/Globulin [Mass ratio] 1.1 {ratio} Normal 1.1-2.5 [facility] ([place] Comment on above: Performed By: #### Jerrell FR, CMP, PBNP, A1C, TSH ####Katie [address] [place], [place] [address] ALP [Catalytic activity/Vol] 66 U/L Normal 40-135 [facility] ([place] Comment on above: Performed By: #### G FR, CMP, PBNP, A1C, TSH ####Katie [address] [place], [place] [address] ALT [Catalytic activity/Vol] 44 U/L Normal 16-63 [facility] ([place] Comment on above: Performed By: #### G FR, CMP, PBNP, A1C, TSH ####Katie [address] [place], [place] [address] AST [Catalytic activity/Vol] 17 U/L Normal 10-40 [facility] ([place] Comment on above: Performed By: #### G FR, CMP, PBNP, A1C, TSH ####Katie [address] [place], [place] [address] Bili Total 0.5 mg/dL Normal 0.2-1.0 [facility] ([place] Comment on above: Result Comment: Use of this assay is not recommended for patients undergoing treatment with eltrombopag due to the potential for falsely elevated results. Performed By: #### G FR, CMP, PBNP, A1C, TSH ####K[address] [place], [place] [address] BUN/Creatinine Ratio 34 ratio High 7-27 [facility] ([place] Comment on above: Performed By: #### G FR, CMP, PBNP, A1C, TSH ####Katie [address] [place], [place] [address] Calcium [Mass/Vol] 8.5 mg/dL Normal 8.4-10.2 [facility] ([place] Comment on above: Performed By: #### Jerrell FR, CMP, PBNP, A1C, TSH ####Katie [address] [place], [place] [address] Chloride [Moles/Vol] 109 mmol/L High 98-107 [facility] ([place] Comment on above: Performed By: #### G FR, CMP, PBNP, A1C, TSH ####Katie [address] [place], [place] [address] CO2 [Moles/Vol] 28 mmol/L Normal 23-31 [facility] ([place] Comment on above: Performed By: #### G FR, CMP, PBNP, A1C, TSH ####Katie [address] [place], [place] [address] Creatinine [Mass/Vol] 1.70 mg/dL High 0.70-1.30 [facility] ([place] Comment on above: Performed By: #### G FR, CMP, PBNP, A1C, TSH ####Katie [address] [place], [place] [address] Electrolyte Balance 6.0 mEq/L Normal 4.0-15.0 [facility] [place] Comment on above: Performed By: #### G FR, CMP, PBNP, A1C, TSH ####Katie [address] [place], [place] [address] Globulin 2.8 G/dL Normal [facility] ([place] Comment on above: Performed By: #### G FR, CMP, PBNP, A1C, TSH ####Katie [address] [place], [place] [address] Glucose [Mass/Vol] 184 mg/dL High 83-110 [facility] ([place] Comment on above: Performed By: #### G FR, CMP, PBNP, A1C, TSH ####K[address] [place], [place] [address] Potassium [Moles/Vol] 5.0 mmol/L Normal 3.5-5.1 [facility] ([place] Comment on above: Performed By: #### G FR, CMP, PBNP, A1C, TSH ####Katie [address] [place], [place] [address] Sodium [Moles/Vol] 143 mmol/L Normal 136-145 [facility] ([place] Comment on above: Performed By: #### G FR, CMP, PBNP, A1C, TSH ####Katie [address] [place], [place] [address] Total Protein 5.9 G/dL Low 6.4-8.2 [facility] ([place] Comment on above: Performed By: #### G FR, CMP, PBNP, A1C, TSH ####Katie [address] [place], [place] [address] Urea nitrogen [Mass/Vol] 58 mg/dL High 7-18 [facility] ([place] Comment on above: Performed By: #### G FR, CMP, PBNP, A1C, TSH ####Katie [address] [place], [place] [address] LABORATORYOrdered By: SYSTEM SYSTEM on 05-17-2023 Albumin [...] B (Bld) [Mass/Vol] 2219 pg/mL High 0-450 [facility] ([place]) Comment on above: Result Comment: NT-p roBNP results of less than 300 pg/mL effectivelyrules out acute congestive heart failure with 99% negative predictive value. Performed By: #### G FR, CMP, PBNP, A1C, TSH ####Katie [address] [place], [place] [address] TSHon 05-17-2023 TSH Qn 2.36 m[IU]/L Normal 0.36-3.74 [facility] ([place] Comment on above: Performed By: #### G FR, CMP, PBNP, A1C, TSH ####Katie [address] [place], [place] [address] .Auto Diffon 05-08-2023 Basophil, Absolute 0.0 10 3/mcL Normal 0.0-0.2 [facility] [place] Comment on above: Performed By: #### G FR, CBC, MG, ANEU, ADIFF, BMP ####Katie [address] [place], [place] [address] Basophils/100 WBC (Bld) 0.0 % Normal 0.0-2.5 A [facility] ([place] Comment on above: Performed By: #### Jerrell FR, CBC, MG, ANEU, ADIFF, BMP ####Katie [address] [place], [place] [address] Eosinophil, Absolute 0.0 10 3/mcL Normal 0.0-0.4 [facility] ([place] Comment on above: Performed By: #### Jerrell FR, CBC, MG, ANEU, ADIFF, BMP ####Katie [address] [place], [place] [address] Eosinophils/100 WBC (Bld) 0.0 % Normal 0.0-7.0 [facility] ([place] Comment on above: Performed By: #### G FR, CBC, MG, ANEU, ADIFF, BMP ####Katie [address] [place], [place] [address] Lymphocyte, Absolute 0.7 10 3/mcL Low 0.8-3.9 [facility] ([place] Comment on above: Performed By: #### G FR, CBC, MG, ANEU, ADIFF, BMP ####Katie [address] [place], [place] [address] Lymphocytes/100 WBC (Bld) 11.0 % Normal 10.0-50.0 [facility] [place] Comment on above: Performed By: #### G FR, CBC, MG, ANEU, ADIFF, BMP ####Katie [address] [place], [place] [address] Monocyte, Absolute 0.1 10 3/mcL Low 0.2-1.0 [facility] ([place] Comment on above: Performed By: #### G FR, CBC, MG, ANEU, ADIFF, BMP ####Katie [address] [place], [place] [address] Monocytes/100 WBC (Bld) 1.4 % Low 1.7-13.0 [facility] ([place] Comment on above: Performed By: #### G FR, CBC, MG, ANEU, ADIFF, BMP ####Katie [address] [place], [place] [address] Neutrophils/100 WBC (Bld) 87.6 % High 37.0-80.0 [facility] [place] Comment on above: Performed By: #### G FR, CBC, MG, ANEU, ADIFF, BMP ####Katie [address] [place], [place] [address] .GFRon 05-08-2023 GFR Non- 26 ml/min/1.73sqm Normal [facility] ([place] Comment on above: Result Comment: GFR Population [...] CBC, MG, ANEU, ADIFF, BMP ####Katie [address] [place], [place] [address] GFR 31 ml/min/1.73sqm Normal [facility] ([place] Comment on above: Result Comment: GFR Population [...] CBC, MG, ANEU, ADIFF, BMP ####Katie [address] [place], [place] [address] .NEUABSon 05-08-2023 Neutrophil, Absolute 5.2 10 3/mcL Normal 2.9-6.2 [facility] [place] Comment on above: Performed By: #### G FR, CBC, MG, ANEU, ADIFF, BMP ####Katie [address] [place], [place] [address] BMPon 05-08-2023 BUN/Creatinine Ratio 22 ratio Normal 7-27 [facility] ([place] Comment on above: Performed By: #### G FR, CBC, MG, ANEU, ADIFF, BMP ####Katie [address] [place], [place] [address] Calcium [Mass/Vol] 9.4 mg/dL Normal 8.4-10.2 [facility] [place] Comment on above: Performed By: #### G FR, CBC, MG, ANEU, ADIFF, BMP ####[address] [place], [place] [address] Chloride [Moles/Vol] 103 mmol/L Normal 98-107 [facility] ([place] Comment on above: Performed By: #### G FR, CBC, MG, ANEU, ADIFF, BMP ####Katie [address] [place], [place] [address] CO2 [Moles/Vol] 31 mmol/L Normal 23-31 [facility] [place] Comment on above: Performed By: #### G FR, CBC, MG, ANEU, ADIFF, BMP ####Katie [address] [place], [place] [address] Creatinine [Mass/Vol] 2.42 mg/dL High 0.70-1.30 [facility] ([place] Comment on above: Performed By: #### G FR, CBC, MG, ANEU, ADIFF, BMP ####[address] [place], [place] [address] Electrolyte Balance 5.0 mEq/L Normal 4.0-15.0 [facility] ([place]) Comment on above: Performed By: #### G FR, CBC, MG, ANEU, ADIFF, BMP ####[address] [place], [place] [address] Glucose [Mass/Vol] 211 mg/dL High 83-110 [facility] ([place]) Comment on above: Performed By: #### G FR, CBC, MG, ANEU, ADIFF, BMP ####[address] [place], [place] [address] Potassium [Moles/Vol] 5.9 mmol/L High 3.5-5.1 [facility] ([place]) Comment on above: Performed By: #### G FR, CBC, MG, ANEU, ADIFF, BMP ####[address] [place], [place] [address] Sodium [Moles/Vol] 139 mmol/L Normal 136-145 [facility] ([place]) Comment on above: Performed By: #### G FR, CBC, MG, ANEU, ADIFF, BMP ####[address] [place], [place] [address] Urea nitrogen [Mass/Vol] 54 mg/dL High 7-18 [facility] ([place]) Comment on above: Performed By: #### G FR, CBC, MG, ANEU, ADIFF, BMP ####[address] [place], [place] [address] CBCon 05-08-2023 Erythrocyte distribution width (RBC) [Ratio] 15.2 % High 11.5-14.5 [facility] ([place]) Comment on above: Performed By: #### G FR, CBC, MG, ANEU, ADIFF, BMP ####[address] [place], [place] [address] Hematocrit (Bld) [Volume fraction] 28.2 % Low 42.0-52.0 [facility] ([place] Comment on above: Performed By: #### G FR, CBC, MG, ANEU, ADIFF, BMP ####[address] [place], [place] [address] Hgb 9.5 G/dL Low 14.0-18.0 [facility] ([place] Comment on above: Performed By: #### G FR, CBC, MG, ANEU, ADIFF, BMP ####[address] [place], [place] [address] MCH (RBC) [Entitic mass] 28.2 pg Normal 27.0-31.2 [facility] ([place] Comment on above: Performed By: #### G FR, CBC, MG, ANEU, ADIFF, BMP ####[address] [place], [place] [address] MCHC 33.5 G/dL Normal 31.8-35.4 [facility] ([place] Comment on above: Performed By: #### G FR, CBC, MG, ANEU, ADIFF, BMP ####[address] [place], [place] [address] MCV (RBC) [Entitic vol] 84.2 fL Normal 80.0-94.0 [facility] ([place]) Comment on above: Performed By: #### G FR, CBC, MG, ANEU, ADIFF, BMP ####[address] [place], [place] [address] Platelet 106 10 3/mcL Low 130-400 [facility] ([place] Comment on above: Performed By: #### G FR, CBC, MG, ANEU, ADIFF, BMP ####[address] [place], [place] [address] Platelet mean volume (Bld) [Entitic vol] 9.5 fL Normal 7.4-10.4 [facility] ([place] Comment on above: Performed By: #### G FR, CBC, MG, ANEU, ADIFF, BMP ####[address] [place], [place] [address] RBC 3.36 10 6/mcL Low 4.04-6.13 [facility] ([place] Comment on above: Performed By: #### G FR, CBC, MG, ANEU, ADIFF, BMP ####[address] [place], [place] [address] WBC 6.0 10 3/mcL Normal 4.6-10.8 [facility] ([place] Comment on above: Performed By: #### G FR, CBC, MG, ANEU, ADIFF, BMP ####[address] [place], [place] [address] LABORATORYOrdered By: Zia Milton on 05-08-2023 Blood Glucose Testing Reason Routine (05/08/23 11:57 AM) [facility] Work Phone: Glucose [Mass/Vol] 301 mg/dL High 82 - 115 mg/dL [facility] Work Phone: LABORATORYOrdered By: Johnnie Bustos on 05-08-2023 Blood Glucose Testing Reason Routine (05/08/23 8:39 AM) [facility] Work Phone: Glucose [Mass/Vol] 186 mg/dL High 82 - 115 mg/dL [facility] Work Phone: LABORATORYOrdered By: SYSTEM SYSTEM [...] Magnesium [Mass/Vol] 1.9 mg/dL Normal 1.8-2.4 [facility] ([place]) Comment on above: Performed By: #### G FR, CBC, MG, ANEU, ADIFF, BMP ####[address] [place], [place] [address] .Auto Diffon 05-07-2023 Basophil, Absolute 0.1 10 3/mcL Normal 0.0-0.2 [facility] ([place] Comment on above: Performed By: #### C BC, ADIFF, BMP, PBNP, GFR, ANEU, MDW, TROPHS ####[address] [place], [place] [address] Basophils/100 WBC (Bld) 0.7 % Normal 0.0-2.5 [facility] ([place] Comment on above: Performed By: #### C BC, ADIFF, BMP, PBNP, GFR, ANEU, MDW, TROPHS ####[address] [place], [place] [address] Eosinophil, Absolute 0.4 10 3/mcL Normal 0.0-0.4 [facility] ([place] Comment on above: Performed By: #### C BC, ADIFF, BMP, PBNP, GFR, ANEU, MDW, TROPHS ####[address] [place], [place] [address] Eosinophils/100 WBC (Bld) 5.2 % Normal 0.0-7.0 [facility] [place] Comment on above: Performed By: #### C BC, ADIFF, BMP, PBNP, GFR, ANEU, MDW, TROPHS ####[address] [place], [place] [address] Lymphocyte, Absolute 1.6 10 3/mcL Normal 0.8-3.9 [facility] ([place] Comment on above: Performed By: #### C BC, ADIFF, BMP, PBNP, GFR, ANEU, W, TROPHS ####[address] [place], [place] [address] Lymphocytes/100 WBC (Bld) 21.2 % Normal 10.0-50.0 [facility] [place] Comment on above: Performed By: #### C BC, ADIFF, BMP, PBNP, GFR, ANEU, MDW, TROPHS ####[address] [place], [place] [address] Monocyte, Absolute 0.5 10 3/mcL Normal 0.2-1.0 [facility] ([place] Comment on above: Performed By: #### C BC, ADIFF, BMP, PBNP, GFR, ANEU, MDW, TROPHS ####[address] [place], [place] [address] Monocytes/100 WBC (Bld) 6.7 % Normal 1.7-13.0 [facility] ([place]) Comment on above: Performed By: #### C BC, ADIFF, BMP, PBNP, GFR, ANEU, MDW, TROPHS ####[address] [place], [place] [address] Neutrophils/100 WBC (Bld) 66.2 % Normal 37.0-80.0 [facility] [place] Comment on above: Performed By: #### C BC, ADIFF, BMP, PBNP, GFR, ANEU, MDW, TROPHS ####[id number] [place], [place] [address] .GFRon 05-07-2023 GFR 31 ml/min/1.73sqm Normal [facility] ([place] Comment on above: Result Comment: GFR Population [...] PBNP, GFR, ANEU, MDW, TROPHS ####[address] [place], [place] [address] GFR Non- 26 ml/min/1.73sqm Normal [facility] ([place] Comment on above: Result Comment: GFR Population [...] PBNP, GFR, ANEU, MDW, TROPHS ####[address] [place], [place] [address] .MDWon 05-07-2023 Monocyte Distribution Width 17.51 Normal 0.00-20.00 [facility] ([place] Comment on above: Result Comment: For ED adult patients suspected of sepsis, MDW<=20.0 does not rule out sepsis or risk of sepsis Performed By: #### C BC, ADIFF, BMP, PBNP, GFR, ANEU, MDW, TROPHS ####[address] [place], [place] [address] .NEUABSon 05-07-2023 Neutrophil, Absolute 5.1 10 3/mcL Normal 2.9-6.2 [facility] [place] Comment on above: Performed By: #### C BC, ADIFF, BMP, PBNP, GFR, ANEU, MDW, TROPHS ####[address] [place], [place] [address] BMPon 05-07-2023 BUN/Creatinine Ratio 18 ratio Normal 7-27 [facility] ([place] Comment on above: Performed By: #### C BC, ADIFF, BMP, PBNP, GFR, ANEU, MDW, TROPHS ####[address] [place], [place] [address] Calcium [Mass/Vol] 9.3 mg/dL Normal 8.4-10.2 [facility] ([place] Comment on above: Performed By: #### C BC, ADIFF, BMP, PBNP, GFR, ANEU, MDW, TROPHS ####[address] [place], [place] [address] Chloride [Moles/Vol] 104 mmol/L Normal 98-107 [facility] ([place] Comment on above: Performed By: #### C BC, ADIFF, BMP, PBNP, GFR, ANEU, MDW, TROPHS ####[address] [place], [place] [address] CO2 [Moles/Vol] 37 mmol/L High 23-31 [facility] ([place] Comment on above: Performed By: #### C BC, ADIFF, BMP, PBNP, GFR, ANEU, MDW, TROPHS ####[address] [place], [place] [address] Creatinine [Mass/Vol] 2.43 mg/dL High 0.70-1.30 [facility] ([place]) Comment on above: Performed By: #### C BC, ADIFF, BMP, PBNP, GFR, ANEU, MDW, TROPHS ####[id number] [place], [place] [address] Electrolyte Balance 4.0 mEq/L Normal 4.0-15.0 [facility] [place] Comment on above: Performed By: #### C BC, ADIFF, BMP, PBNP, GFR, ANEU, MDW, TROPHS ####[address] [place], [place] [address] Glucose [Mass/Vol] 129 mg/dL High 83-110 [facility] ([place] Comment on above: Performed By: #### C BC, ADIFF, BMP, PBNP, GFR, ANEU, MDW, TROPHS ####[address] [place], [place] [address] Potassium [Moles/Vol] 5.2 mmol/L High 3.5-5.1 [facility] ([place]) Comment on above: Performed By: #### C BC, ADIFF, BMP, PBNP, GFR, ANEU, MDW, TROPHS ####[address] [place], [place] [address] Sodium [Moles/Vol] 145 mmol/L Normal 136-145 [facility] ([place] Comment on above: Performed By: #### C BC, ADIFF, BMP, PBNP, GFR, ANEU, MDW, TROPHS ####[address] [place], [place] [address] Urea nitrogen [Mass/Vol] 44 mg/dL High 7-18 [facility] ([place] Comment on above: Performed By: #### C BC, ADIFF, BMP, PBNP, GFR, ANEU, MDW, TROPHS ####[address] [place], [place] [address] CBCon 05-07-2023 Erythrocyte distribution width (RBC) [Ratio] 15.3 % High 11.5-14.5 [facility] ([place] Comment on above: Performed By: #### C BC, ADIFF, BMP, PBNP, GFR, ANEU, MDW, TROPHS ####[address] [place], [place] [address] Hematocrit (Bld) [Volume fraction] 29.4 % Low 42.0-52.0 [facility] ([place] Comment on above: Performed By: #### C BC, ADIFF, BMP, PBNP, GFR, ANEU, MDW, TROPHS ####[address] [place], [place] [address] Hgb 9.9 G/dL Low 14.0-18.0 [facility] ([place] Comment on above: Performed By: #### C BC, ADIFF, BMP, PBNP, GFR, ANEU, MDW, TROPHS ####[address] [place], [place] [address] MCH (RBC) [Entitic mass] 28.2 pg Normal 27.0-31.2 [facility] ([place] Comment on above: Performed By: #### C BC, ADIFF, BMP, PBNP, GFR, ANEU, MDW, TROPHS ####[address] [place], [place] [address] MCHC 33.5 G/dL Normal 31.8-35.4 [facility] ([place] Comment on above: Performed By: #### C BC, ADIFF, BMP, PBNP, GFR, ANEU, MDW, TROPHS ####[address] [place], [place] [address] MCV (RBC) [Entitic vol] 84.3 fL Normal 80.0-94.0 [facility] ([place] Comment on above: Performed By: #### C BC, ADIFF, BMP, PBNP, GFR, ANEU, MDW, TROPHS ####[address] [place], [place] [address] Platelet 134 10 3/mcL Normal 130-400 [facility] ([place] Comment on above: Performed By: #### C BC, ADIFF, BMP, PBNP, GFR, ANEU, MDW, TROPHS ####[id number] [place], [place] [address] Platelet mean volume (Bld) [Entitic vol] 8.8 fL Normal 7.4-10.4 [facility] ([place] Comment on above: Performed By: #### C BC, ADIFF, BMP, PBNP, GFR, ANEU, MDW, TROPHS ####[address] [place], [place] [address] RBC 3.49 10 6/mcL Low 4.04-6.13 [facility] ([place] Comment on above: Performed By: #### C BC, ADIFF, BMP, PBNP, GFR, ANEU, MDW, TROPHS ####[address] [place], [place] [address] WBC 7.7 10 3/mcL Normal 4.6-10.8 [facility] ([place] Comment on above: Performed By: #### C BC, ADDEE, BMP, PBNP, GFR, KARRIE, RAJAT, TROPHS ####[id number] [place], [place] [address] LABORATORYOrdered By: Maxine Ingram on 05-07-2023 Blood Glucose Testing Reason Routine (05/07/23 9:37 PM) [facility] Work Phone: Glucose [Mass/Vol] 368 mg/dL High 82 - 115 mg/dL [facility] Work Phone: LABORATORYOrdered By: SYSTEM SYSTEM [...] B (Bld) [Mass/Vol] 1374 pg/mL High 0-450 [facility] ([place] Comment on above: Result Comment: NT-p roBNP results of less than 300 pg/mL effectivelyrules out acute congestive heart failure with 99% negative predictive value. Performed By: #### C BC, ADDEE, BMP, PBNP, GFR, RAJAT YOON, SNEHA ####[address] [place], [place] [address] TROPHSon 05-07-2023 Troponin I High Sensitivity 22.1 ng/L Normal 0.0-76.2 [facility] ([place] Comment on above: Performed By: #### C BC, ADIFF, BMP, PBNP, GFR, RAJAT YOON, SNEHA ####[address] [place], [place] [address] XR CHEST 1 VIEWon 05-07-2023 XR CHEST 1 VIEW Normal [facility] ([place]) Basophil percentageOrdered B y: Talya Nichols on 05-04-2023 Bilirubin [Mass/Vol] 0.50 mg/dL 0.20-1.00 [facility] Comment on above: For patients on eltr ombopag therapy, use of Dimension [place] TBIL is not recommended. Chloride [Moles/Vol] 102 mmol/L 98-107 [facility] Glucose [Mass/Vol] 212 mg/dL 74-106 [facility] Comment on above: Glucose result great er than or equal to 200 mg/dLsuggests DIABETES MELLITUS per A.D.A. criteria. Hemoglobin (Bld) [Mass/Vol] 8.8 g/dL 13.0-16.5 [facility] Potassium [Moles/Vol] 4.3 mmol/L 3.5-5.1 [facility] Protein [Mass/Vol] 6.8 g/dL 6.4-8.2 [facility] Sodium [Moles/Vol] 143 mmol/L 136-145 [facility] WBC (Bld) [#/Vol] 5.0 10*3/uL 4.4-11.0 [facility] Determination of erythrocyte mean corpuscular volume (MCV)Ordered By: Talya Nichols on 05-04-2023 MCV (RBC) [Entitic vol] 91.9 fL 80-94 [facility] Erythrocyte distribution wid th ratioOrdered By: Talya Nichols on 05-04-2023 Erythrocyte distribution width (RBC) [Ratio] 14.1 % 11.6-14.6 [facility] Erythrocyte distribution wid th standard deviationOrdered By: Talya Nichols on 05-04-2023 Erythrocyte distribution width (RBC) [Entitic vol] 47.2 fL 35.1-43.9 [facility] Hematocrit Auto (Bld) [Volum e fraction]Ordered By: Talya Nichols on 05-04-2023 Hematocrit (Bld) [Volume fraction] 29.6 % 40-54 [facility] Laboratory - Chemistry and C hemistry - challengeOrdered By: Talya Nichols on 05-04-2023 Albumin/Globulin [Mass ratio] 0.9 {ratio} 0.9-2.4 [facility] ALP [Catalytic activity/Vol] 74 U/L 45-117 [facility] ALT [Catalytic activity/Vol] 23 U/L 16-61 [facility] CO2 [Moles/Vol] 37.0 mmol/L 21.0-32.0 [facility] Globulin (S) [Mass/Vol] 3.6 g/dL 2.2-4.2 [facility] Natriuretic peptide B (Bld) [Mass/Vol] 253.6 pg/mL 0-100 [facility] Urea nitrogen/Creatinine [Mass ratio] 22.9 mg/mg 10-20 [facility] Laboratory - Hematology and Cell countsOrdered By: Talya Nichols on 05-04-2023 MCH (RBC) [Entitic mass] 27.3 pg 27.0-32.0 [facility] MCHC (RBC) [Mass/Vol] 29.7 g/dL 32-36 [facility] Platelet mean volume (Bld) [Entitic vol] 12.2 fL 6.2-12.0 [facility] Platelets (Bld) [#/Vol] 122 10*3/uL 150-450 [facility] No Panel InformationOrdered By: Talya Nichols on 05-04-2023 Estimated GFR (MDRD) Amer 39 mL/min >60 [facility] Comment on above: GFR Calc Estimated GFR (MDRD) Non-Af Amer 32 mL/min >60 [facility] Comment on above: Non- GFR Calc RBC Auto (Bld) [#/Vol]Ordere d By: Talya Nichols on 05-04-2023 RBC (Bld) [#/Vol] 3.22 10*6/uL 4.6-6.2 [facility] Serum or plasma calcium elmira urement (mass/volume)Ordered By: Talya Nichols on 05-04-2023 Calcium [Mass/Vol] 10.5 mg/dL 8.5-10.1 [facility] Serum or plasma creatinine m easurement (mass/volume)Ordered By: Talya Nichols on 05-04-2023 Creatinine [Mass/Vol] 2.10 mg/dL 0.70-1.30 [facility] Comment on above: The validity of the calculated GFR & GFRAA in patients over 70 years has not been determined. Clinical correlation is essential. Serum or plasma urea nitroge n measurement (mass/volume)Ordered By: Talya Nichols on 05-04-2023 Urea nitrogen [Mass/Vol] 48 mg/dL 7-18 [facility] Thin prep Papanicolaou smear with manual screeningOrdered By: Talya Nichols on 05-04-2023 Thin prep Papanicolaou smear with manual screening 3.2 g/dL 3.2-5.0 [facility] Thin prep Papanicolaou smear with manual screening 17 U/L 15-37 [facility] Thin prep Papanicolaou smear with manual screening 4 5-15 [facility] Absolute lymphocyte countOrd ered By: Frederick Logan on 04-30-2023 Lymphocytes Auto (Unsp spec) [#/Vol] 1.03 10*3/uL 0.83-4.51 [facility] Automated lymphocyte count a s percentage of total leukocytesOrdered By: Frederick Logan on 04-30-2023 Lymphocytes/100 WBC Auto (Unsp spec) 24.1 % 19-41 [facility] Basophil percentageOrdered B y: Frederick Logan on 04-30-2023 Basophils/100 WBC (Bld) 0.5 % 0-1 [facility] Chloride [Moles/Vol] 112 mmol/L 98-107 [facility] Eosinophils/100 WBC (Bld) 5.6 % 0-5 [facility] Glucose [Mass/Vol] 131 mg/dL 74-106 [facility] Comment on above: Fasting Glucose resu lt greater than or equal to 126 mg/dL suggests DIABETES MELLITUS per A.D.A. criteria. Hemoglobin (Bld) [Mass/Vol] 8.3 g/dL 13.0-16.5 [facility] Monocytes/100 WBC (Bld) 9.3 % 0-10 [facility] Neutrophils (Bld) [#/Vol] 2.6 10*3/uL 2.0-7.7 [facility] Neutrophils/100 WBC (Bld) 60.3 % 47-70 [facility] Potassium [Moles/Vol] 4.2 mmol/L 3.5-5.1 [facility] Sodium [Moles/Vol] 147 mmol/L 136-145 [facility] WBC (Bld) [#/Vol] 4.3 10*3/uL 4.4-11.0 [facility] Determination of erythrocyte mean corpuscular volume (MCV)Ordered By: Frederick Logan on 04-30-2023 MCV (RBC) [Entitic vol] 90.9 fL 80-94 [facility] Erythrocyte distribution wid th ratioOrdered By: Frederick Logan on 04-30-2023 Erythrocyte distribution width (RBC) [Ratio] 14.2 % 11.6-14.6 [facility] Erythrocyte distribution wid th standard deviationOrdered By: Frederick Logan on 04-30-2023 Erythrocyte distribution width (RBC) [Entitic vol] 46.7 fL 35.1-43.9 [facility] Hematocrit Auto (Bld) [Volum e fraction]Ordered By: Frederick Logan on 04-30-2023 Hematocrit (Bld) [Volume fraction] 28.0 % 40-54 [facility] Immature granulocytes/100 WB C Auto (Bld)Ordered By: Frederick Logan on 04-30-2023 Immature granulocytes/100 WBC (Bld) 0.200 % 0.0-0.9 [facility] Comment on above: IG% - Immature Granu locytes (promyelocytes, myelocytes and metamyelocytes) > 1% indicates that a LEFT SHIFT is Present. Laboratory - Chemistry and C hemistry - challengeOrdered By: Frederick Logan on 04-30-2023 CO2 [Moles/Vol] 34.0 mmol/L 21.0-32.0 [facility] Natriuretic peptide B (Bld) [Mass/Vol] 292.3 pg/mL 0-100 [facility] Urea nitrogen/Creatinine [Mass ratio] 36.8 mg/mg 10-20 [facility] Laboratory - Hematology and Cell countsOrdered By: Frederick Logan on 04-30-2023 MCH (RBC) [Entitic mass] 26.9 pg 27.0-32.0 [facility] MCHC (RBC) [Mass/Vol] 29.6 g/dL 32-36 [facility] Nucleated RBC/100 WBC (Bld) [Ratio] 0 % 0-5 [facility] Platelet mean volume (Bld) [Entitic vol] 11.9 fL 6.2-12.0 [facility] Platelets (Bld) [#/Vol] 109 10*3/uL 150-450 [facility] No Panel InformationOrdered By: Frederick Logan on 04-30-2023 Estimated Creatinine Clearance Calc 28.55 ml/min [facility] Estimated GFR (MDRD) Amer 40 mL/min >60 [facility] Comment on above: GFR Calc Estimated GFR (MDRD) Non-Af Amer 33 mL/min >60 [facility] Comment on above: Non- GFR Calc RBC Auto (Bld) [#/Vol]Ordere d By: Frederick Logan on 04-30-2023 RBC (Bld) [#/Vol] 3.08 10*6/uL 4.6-6.2 [facility] Serum or plasma calcium elmira urement (mass/volume)Ordered By: Frederick Logan on 04-30-2023 Calcium [Mass/Vol] 9.0 mg/dL 8.5-10.1 [facility] Serum or plasma creatinine m easurement (mass/volume)Ordered By: Frederick Logan on 04-30-2023 Creatinine [Mass/Vol] 2.04 mg/dL 0.70-1.30 [facility] Comment on above: The validity of the calculated GFR & GFRAA in patients over 70 years has not been determined. Clinical correlation is essential. Serum or plasma urea nitroge n measurement (mass/volume)Ordered By: Frederick Logan on 04-30-2023 Urea nitrogen [Mass/Vol] 75 mg/dL 7-18 [facility] Thin prep Papanicolaou smear with manual screeningOrdered By: Frederick Logan on 04-30-2023 Thin prep Papanicolaou smear with manual screening 1 5-15 [facility] Absolute lymphocyte countOrd ered By: John Anders on 04-26-2023 Lymphocytes Auto (Unsp spec) [#/Vol] 1.40 10*3/uL 0.83-4.51 [facility] Automated lymphocyte count a s percentage of total leukocytesOrdered By: John Anders on 04-26-2023 Lymphocytes/100 WBC Auto (Unsp spec) 24.7 % 19-41 [facility] Basophil percentageOrdered B y: John Anders on 04-26-2023 Basophils/100 WBC (Bld) 0.7 % 0-1 [facility] Chloride [Moles/Vol] 101 mmol/L 98-107 [facility] Eosinophils/100 WBC (Bld) 6.0 % 0-5 [facility] Glucose [Mass/Vol] 129 mg/dL 74-106 [facility] Comment on above: Fasting Glucose resu lt greater than or equal to 126 mg/dL suggests DIABETES MELLITUS per A.D.A. criteria. Hemoglobin (Bld) [Mass/Vol] 9.4 g/dL 13.0-16.5 [facility] Monocytes/100 WBC (Bld) 8.8 % 0-10 [facility] Neutrophils (Bld) [#/Vol] 3.4 10*3/uL 2.0-7.7 [facility] Neutrophils/100 WBC (Bld) 59.6 % 47-70 [facility] Potassium [Moles/Vol] 3.8 mmol/L 3.5-5.1 [facility] Sodium [Moles/Vol] 142 mmol/L 136-145 [facility] WBC (Bld) [#/Vol] 5.7 10*3/uL 4.4-11.0 [facility] Determination of erythrocyte mean corpuscular volume (MCV)Ordered By: John Anders on 04-26-2023 MCV (RBC) [Entitic vol] 88.3 fL 80-94 [facility] Erythrocyte distribution wid th ratioOrdered By: John Anders on 04-26-2023 Erythrocyte distribution width (RBC) [Ratio] 14.6 % 11.6-14.6 [facility] Erythrocyte distribution wid th standard deviationOrdered By: John Anders on 04-26-2023 Erythrocyte distribution width (RBC) [Entitic vol] 46.8 fL 35.1-43.9 [facility] Hematocrit Auto (Bld) [Volum e fraction]Ordered By: John Anders on 04-26-2023 Hematocrit (Bld) [Volume fraction] 30.2 % 40-54 [facility] Immature granulocytes/100 WB C Auto (Bld)Ordered By: John Anders on 04-26-2023 Immature granulocytes/100 WBC (Bld) 0.200 % 0.0-0.9 [facility] Comment on above: IG% - Immature Granu locytes (promyelocytes, myelocytes and metamyelocytes) > 1% indicates that a LEFT SHIFT is Present. Laboratory - Chemistry and C hemistry - challengeOrdered By: John Anders on 04-26-2023 CO2 [Moles/Vol] 31.0 mmol/L 21.0-32.0 [facility] Urea nitrogen/Creatinine [Mass ratio] 23.9 mg/mg 10-20 [facility] Laboratory - Hematology and Cell countsOrdered By: John Anders on 04-26-2023 MCH (RBC) [Entitic mass] 27.5 pg 27.0-32.0 [facility] MCHC (RBC) [Mass/Vol] 31.1 g/dL 32-36 [facility] Nucleated RBC/100 WBC (Bld) [Ratio] 0 % 0-5 [facility] Platelet mean volume (Bld) [Entitic vol] 11.7 fL 6.2-12.0 [facility] Platelets (Bld) [#/Vol] 123 10*3/uL 150-450 [facility] No Panel InformationOrdered By: John Anders on 04-26-2023 Estimated Creatinine Clearance Calc 23.25 ml/min [facility] Estimated GFR (MDRD) Amer 33 mL/min >60 [facility] Comment on above: GFR Calc Estimated GFR (MDRD) Non-Af Amer 27 mL/min >60 [facility] Comment on above: Non- GFR Calc RBC Auto (Bld) [#/Vol]Ordere d By: John Anders on 04-26-2023 RBC (Bld) [#/Vol] 3.42 10*6/uL 4.6-6.2 [facility] Serum or plasma calcium elmira urement (mass/volume)Ordered By: John Anders on 04-26-2023 Calcium [Mass/Vol] 9.9 mg/dL 8.5-10.1 [facility] Serum or plasma creatinine m easurement (mass/volume)Ordered By: John Anders on 04-26-2023 Creatinine [Mass/Vol] 2.43 mg/dL 0.70-1.30 [facility] Comment on above: The validity of the calculated GFR & GFRAA in patients over 70 years has not been determined. Clinical correlation is essential. Serum or plasma urea nitroge n measurement (mass/volume)Ordered By: John Anders on 04-26-2023 Urea nitrogen [Mass/Vol] 58 mg/dL 7-18 [facility] Thin prep Papanicolaou smear with manual screeningOrdered By: John Anders on 04-26-2023 Thin prep Papanicolaou smear with manual screening 209 mg/dL 74-106 [facility] Comment on above: MANAGEMENT OF PATIEN T CARE PER NURSING PROTOCOL Thin prep Papanicolaou smear with manual screening 10 -15 [facility] Basophil percentageOrdered B y: Michelle Washburn on 04-25-2023 Basophil percentage 2.4 mg/dL 2.5-4.9 [facility] Bilirubin [Mass/Vol] 0.90 mg/dL 0.20-1.00 [facility] Comment on above: For patients on eltr ombopag therapy, use of Dimension [place] TBIL is not recommended. Cholesterol [Mass/Vol] 170 mg/dL <200 [facility] Comment on above: <200 mg/dL Desirable 200-240 mg/dL Borderline >240 mg/dL High Risk Protein [Mass/Vol] 7.0 g/dL 6.4-8.2 [facility] Triglyceride [Mass/Vol] 216 mg/dL <199 [facility] Comment on above: The drugs N-Acetylcy steine and Metamizole may falsely depress this assay.Serum Triglycerides Reference Interval Normal <150 mg/dL Borderline high 150 - 199 mg/dL High 200 - 499 mg/dL Very High > or = 500 mg/dL Laboratory - Chemistry and C hemistry - challengeOrdered By: Michelle Washburn on 04-25-2023 Albumin/Globulin [Mass ratio] 0.9 {ratio} 0.9-2.4 [facility] ALP [Catalytic activity/Vol] 80 U/L 45-117 [facility] ALT [Catalytic activity/Vol] 13 U/L 16-61 [facility] Cholesterol in HDL [Mass/Vol] 33 mg/dL >40 [facility] Comment on above: The drugs N-Acetylcy steine and Metamizole may falsely depress this assay. Reference Range HDL <40 mg/dL Low HDL Cholesterol HDL >or= 60 mg/dL High HDL Cholesterol Cholesterol in LDL [Mass/Vol] 94 mg/dL 0-130 [facility] Globulin (S) [Mass/Vol] 3.7 g/dL 2.2-4.2 [facility] Magnesium [Mass/Vol] 1.6 mg/dL 1.6-2.6 [facility] No Panel InformationOrdered By: Michelle Washburn on 04-25-2023 VLDL Cholesterol 43 mg/dL 5-40 [facility] Troponin I High Sensitivity 334 pg/mL 3.0-78.0 [facility] Comment on above: CRITICAL VALUE BAILEY Cole LOPEZ RN ([facility])04/25/23 0320 N JEAN-BAPTISTE.RESULTS READ BACK BY SAME . Please Note: New Test Units and Gender Specific Reference Ranges. For more information see Policy Stat Procedure [place] High Sensitivity Troponin (TNIH) and attachments. Serum or plasma thyroid stim ulating hormone (TSH) measurement (units/volume)Ordered By: Michelle Washburn on 04-25-2023 TSH Qn 3.43 uIU/mL 0.358-3.74 [facility] Thin prep Papanicolaou smear with manual screeningOrdered By: Michelle Washburn on 04-25-2023 Thin prep Papanicolaou smear with manual screening 3.3 g/dL 3.2-5.0 [facility] Thin prep Papanicolaou smear with manual screening 17 U/L 15-37 [facility] Absolute lymphocyte countOrd ered By: Jr Thomas on 04-24-2023 Lymphocytes Auto (Unsp spec) [#/Vol] 0.67 10*3/uL 0.83-4.51 [facility] Automated lymphocyte count a s percentage of total leukocytesOrdered By: Jr Thomas on 04-24-2023 Lymphocytes/100 WBC Auto (Unsp spec) 12.0 % 19-41 [facility] Basophil percentageOrdered B y: Jr Thomas on 04-24-2023 Basophils/100 WBC (Bld) 0.5 % 0-1 [facility] Chloride [Moles/Vol] 108 mmol/L 98-107 [facility] Eosinophils/100 WBC (Bld) 4.5 % 0-5 [facility] Glucose [Mass/Vol] 200 mg/dL 74-106 [facility] Comment on above: Glucose result great er than or equal to 200 mg/dLsuggests DIABETES MELLITUS per A.D.A. criteria. Hemoglobin (Bld) [Mass/Vol] 9.3 g/dL 13.0-16.5 [facility] Monocytes/100 WBC (Bld) 6.1 % 0-10 [facility] Neutrophils (Bld) [#/Vol] 4.3 10*3/uL 2.0-7.7 [facility] Neutrophils/100 WBC (Bld) 76.7 % 47-70 [facility] Potassium [Moles/Vol] 4.1 mmol/L 3.5-5.1 [facility] Sodium [Moles/Vol] 145 mmol/L 136-145 [facility] WBC (Bld) [#/Vol] 5.6 10*3/uL 4.4-11.0 [facility] Determination of erythrocyte mean corpuscular volume (MCV)Ordered By: Jr Thomas on 04-24-2023 MCV (RBC) [Entitic vol] 89.6 fL 80-94 [facility] Erythrocyte distribution wid th ratioOrdered By: Jr Thomas on 04-24-2023 Erythrocyte distribution width (RBC) [Ratio] 14.7 % 11.6-14.6 [facility] Erythrocyte distribution wid th standard deviationOrdered By: Jr Thomas on 04-24-2023 Erythrocyte distribution width (RBC) [Entitic vol] 48.0 fL 35.1-43.9 [facility] Hematocrit Auto (Bld) [Volum e fraction]Ordered By: Jr Thomas on 04-24-2023 Hematocrit (Bld) [Volume fraction] 30.1 % 40-54 [facility] Immature granulocytes/100 WB C Auto (Bld)Ordered By: Jr Thomas on 04-24-2023 Immature granulocytes/100 WBC (Bld) 0.200 % 0.0-0.9 [facility] Comment on above: IG% - Immature Granu locytes (promyelocytes, myelocytes and metamyelocytes) > 1% indicates that a LEFT SHIFT is Present. Laboratory - Chemistry and C hemistry - challengeOrdered By: Jr Thomas on 04-24-2023 CO2 [Moles/Vol] 33.0 mmol/L 21.0-32.0 [facility] Natriuretic peptide B (Bld) [Mass/Vol] 143.1 pg/mL 0-100 [facility] Urea nitrogen/Creatinine [Mass ratio] 21.5 mg/mg 10-20 [facility] Laboratory - Hematology and Cell countsOrdered By: Jr Thomas on 04-24-2023 MCH (RBC) [Entitic mass] 27.7 pg 27.0-32.0 [facility] MCHC (RBC) [Mass/Vol] 30.9 g/dL 32-36 [facility] Nucleated RBC/100 WBC (Bld) [Ratio] 0 % 0-5 [facility] Platelet mean volume (Bld) [Entitic vol] 11.9 fL 6.2-12.0 [facility] Platelets (Bld) [#/Vol] 103 10*3/uL 150-450 [facility] Laboratory - Microbiology an d Antimicrobial susceptibilityOrdered By: Jr Thomas on 04-24-2023 SARS-CoV-2 (COVID-19) RNA JOSH+probe Ql (Unsp spec) [facility] SARS-CoV-2 (COVID-19) RNA JOSH+probe Ql (Unsp spec) [facility] No Panel InformationOrdered By: Jr Thomas on 04-24-2023 Estimated Creatinine Clearance Calc 29.00 ml/min [facility] Estimated GFR (MDRD) Amer 41 mL/min >60 [facility] Comment on above: GFR Calc Estimated GFR (MDRD) Non-Af Amer 34 mL/min >60 [facility] Comment on above: Non- GFR Calc Troponin I High Sensitivity 47 pg/mL 3.0-78.0 [facility] Comment on above: Please Note: New Arti t Units and Gender Specific Reference Ranges. For more information see Policy Stat Procedure [place] High Sensitivity Troponin (TNIH) and attachments. RBC Auto (Bld) [#/Vol]Ordere d By: Jr Thomas on 04-24-2023 RBC (Bld) [#/Vol] 3.36 10*6/uL 4.6-6.2 [facility] Serum or plasma calcium elmira urement (mass/volume)Ordered By: Jr Thomas on 04-24-2023 Calcium [Mass/Vol] 9.3 mg/dL 8.5-10.1 [facility] Serum or plasma creatinine m easurement (mass/volume)Ordered By: Jr Tohmas on 04-24-2023 Creatinine [Mass/Vol] 2.00 mg/dL 0.70-1.30 [facility] Comment on above: The validity of the calculated GFR & GFRAA in patients over 70 years has not been determined. Clinical correlation is essential. Serum or plasma urea nitroge n measurement (mass/volume)Ordered By: Jr Thomas on 04-24-2023 Urea nitrogen [Mass/Vol] 43 mg/dL 7-18 [facility] Thin prep Papanicolaou smear with manual screeningOrdered By: Jr Thomas on 04-24-2023 Thin prep Papanicolaou smear with manual screening 4 5-15 [facility] .Auto Diffon 04-13-2023 Basophil, Absolute 0.1 10 3/mcL Normal 0.0-0.2 [facility] ([place]) Comment on above: Performed By: #### D SUMAN, PBNP, CBC, ADIFF, ANEU, TSH, CMP, GFR ####[address] [place], [place] [address] Basophils/100 WBC (Bld) 1.0 % Normal 0.0-2.5 [facility] ([place]) Comment on above: Performed By: #### D SUMAN, PBNP, CBC, ADIFF, ANEU, TSH, CMP, GFR ####[address] [place], [place] [address] Eosinophil, Absolute 0.4 10 3/mcL Normal 0.0-0.4 [facility] ([place]) Comment on above: Performed By: #### D SUMAN, PBNP, CBC, ADIFF, ANEU, TSH, CMP, GFR ####[address] [place], [place] [address] Eosinophils/100 WBC (Bld) 5.5 % Normal 0.0-7.0 [facility] ([place]) Comment on above: Performed By: #### D SUMAN, PBNP, CBC, ADIFF, ANEU, TSH, CMP, GFR ####[address] [place], [place] [address] Lymphocyte, Absolute 1.2 10 3/mcL Normal 0.8-3.9 [facility] ([place] Comment on above: Performed By: #### D SUMAN, PBNP, CBC, ADIFF, ANEU, TSH, CMP, GFR ####[address] [place], [place] [address] Lymphocytes/100 WBC (Bld) 19.1 % Normal 10.0-50.0 [facility] ([place] Comment on above: Performed By: #### D SUMAN, PBNP, CBC, ADIFF, ANEU, TSH, CMP, GFR ####[address] [place], [place] [address] Monocyte, Absolute 0.5 10 3/mcL Normal 0.2-1.0 [facility] ([place] Comment on above: Performed By: #### D SUMAN, PBNP, CBC, ADIFF, ANEU, TSH, CMP, GFR ####[address] [place], [place] [address] Monocytes/100 WBC (Bld) 7.4 % Normal 1.7-13.0 [facility] ([place]) Comment on above: Performed By: #### D SUMAN, PBNP, CBC, ADIFF, ANEU, TSH, CMP, GFR ####[address] [place], [place] [address] Neutrophils/100 WBC (Bld) 67.0 % Normal 37.0-80.0 [facility] ([place] Comment on above: Performed By: #### D SUMAN, PBNP, CBC, ADIFF, ANEU, TSH, CMP, GFR ####[address] [place], [place] [address] .GFRon 04-13-2023 GFR 38 ml/min/1.73sqm Normal [facility] ([place]) Comment on above: Result Comment: GFR Population [...] CBC, ADIFF, ANEU, TSH, CMP, GFR ####[address] [place], [place] [address] GFR Non- 32 ml/min/1.73sqm Normal [facility] ([place] Comment on above: Result Comment: GFR Population [...] ADIFF, ANEU, TSH, CMP, GFR ####[address] [place], [place] [address] .NEUABSon 04-13-2023 Neutrophil, Absolute 4.3 10 3/mcL Normal 2.9-6.2 [facility] ([place] Comment on above: Performed By: #### Cole SUMAN, PBNP, CBC, ADIFF, ANEU, TSH, CMP, GFR ####[address] [place], [place] [address] CBCon 04-13-2023 Erythrocyte distribution width (RBC) [Ratio] 16.3 % High 11.5-14.5 [facility] ([place] Comment on above: Order Comment: STAT Performed By: #### Cole SUMAN, PBNP, CBC, ADIFF, ANEU, TSH, CMP, GFR ####[address] [place], [place] [address] Hematocrit (Bld) [Volume fraction] 28.8 % Low 42.0-52.0 [facility] ([place] Comment on above: Order Comment: STAT Performed By: #### Cole SUMAN, PBNP, CBC, ADIFF, ANEU, TSH, CMP, GFR ####[address] [place], [place] [address] Hgb 9.6 G/dL Low 14.0-18.0 [facility] ([place] Comment on above: Order Comment: STAT Performed By: ###Ramesh Galvan SUMAN, PBNP, CBC, ADIFF, ANEU, TSH, CMP, GFR ####[address] [place], [place] [address] MCH (RBC) [Entitic mass] 28.1 pg Normal 27.0-31.2 [facility] ([place] Comment on above: Order Comment: STAT Performed By: #### D SUMAN, PBNP, CBC, ADIFF, ANEU, TSH, CMP, GFR ####[address] [place], [place] [address] MCHC 33.4 G/dL Normal 31.8-35.4 [facility] ([place] Comment on above: Order Comment: STAT Performed By: #### D SUMAN, PBNP, CBC, ADIFF, ANEU, TSH, CMP, GFR ####[address] [place], [place] [address] MCV (RBC) [Entitic vol] 84.1 fL Normal 80.0-94.0 [facility] ([place] Comment on above: Order Comment: STAT Performed By: #### Cole SUMAN, PBNP, CBC, ADIFF, ANEU, TSH, CMP, GFR ####[address] [place], [place] [address] Platelet 119 10 3/mcL Low 130-400 [facility] ([place] Comment on above: Order Comment: STAT Performed By: #### Cole SUMAN, PBNP, CBC, ADIFF, ANEU, TSH, CMP, GFR ####[address] [place], [place] [address] Platelet mean volume (Bld) [Entitic vol] 8.3 fL Normal 7.4-10.4 [facility] ([place] Comment on above: Order Comment: STAT Performed By: #### Cole SUMAN, PBNP, CBC, ADIFF, ANEU, TSH, CMP, GFR ####[address] [place], [place] [address] RBC 3.42 10 6/mcL Low 4.04-6.13 [facility] ([place] Comment on above: Order Comment: STAT Performed By: #### Cole SUMAN, PBNP, CBC, ADIFF, ANEU, TSH, CMP, GFR ####[address] [place], [place] [address] WBC 6.4 10 3/mcL Normal 4.6-10.8 [facility] ([place] Comment on above: Order Comment: STAT Performed By: #### D SUMAN, PBNP, CBC, ADIFF, ANEU, TSH, CMP, GFR ####[address] [place], [place] [address] CMPon 04-13-2023 Albumin Level 3.5 G/dL Normal 3.4-4.8 [facility] ([place] Comment on above: Order Comment: STAT Performed By: #### D SUMAN, PBNP, CBC, ADIFF, ANEU, TSH, CMP, GFR ####[address] [place], [place] [address] Albumin/Globulin [Mass ratio] 1.0 {ratio} Low 1.1-2.5 [facility] ([place] Comment on above: Order Comment: STAT Performed By: #### D SUMAN, PBNP, CBC, ADIFF, ANEU, TSH, CMP, GFR ####[address] [place], [place] [address] ALP [Catalytic activity/Vol] 93 U/L Normal 40-135 [facility] ([place] Comment on above: Order Comment: STAT Performed By: #### D SUMAN, PBNP, CBC, ADIFF, ANEU, TSH, CMP, GFR ####[address] [place], [place] [address] ALT [Catalytic activity/Vol] 20 U/L Normal 16-63 [facility] ([place] Comment on above: Order Comment: STAT Performed By: #### D SUMAN, PBNP, CBC, ADIFF, ANEU, TSH, CMP, GFR ####[address] [place], [place] [address] AST [Catalytic activity/Vol] 20 U/L Normal 10-40 [facility] ([place] Comment on above: Order Comment: STAT Performed By: #### D SUMAN, PBNP, CBC, ADIFF, ANEU, TSH, CMP, GFR ####[address] [place], [place] [address] Bili Total 0.7 mg/dL Normal 0.2-1.0 [facility] ([place] Comment on above: Order Comment: STAT Result Comment: Use of this assay is not recommended for patients undergoing treatment with eltrombopag due to the potential for falsely elevated results. Performed By: #### D SUMAN, PBNP, CBC, ADIFF, ANEU, TSH, CMP, GFR ####[address] [place], [place] [address] BUN/Creatinine Ratio 30 ratio High 7-27 [facility] ([place] Comment on above: Order Comment: STAT Performed By: #### D SUMAN, PBNP, CBC, ADIFF, ANEU, TSH, CMP, GFR ####[address] [place], [place] [address] Calcium [Mass/Vol] 9.5 mg/dL Normal 8.4-10.2 [facility] ([place] Comment on above: Order Comment: STAT Performed By: #### D SUMAN, PBNP, CBC, ADIFF, ANEU, TSH, CMP, GFR ####[address] [place], [place] [address] Chloride [Moles/Vol] 100 mmol/L Normal 98-107 [facility] ([place] Comment on above: Order Comment: STAT Performed By: #### D SUMAN, PBNP, CBC, ADIFF, ANEU, TSH, CMP, GFR ####[address] [place], [place] [address] CO2 [Moles/Vol] 36 mmol/L High 23-31 [facility] ([place] Comment on above: Order Comment: STAT Performed By: #### D SUMAN, PBNP, CBC, ADIFF, ANEU, TSH, CMP, GFR ####[address] [place], [place] [address] Creatinine [Mass/Vol] 2.03 mg/dL High 0.70-1.30 [facility] ([place] Comment on above: Order Comment: STAT Performed By: #### D SUMAN, PBNP, CBC, ADIFF, ANEU, TSH, CMP, GFR ####[address] [place], [place] [address] Electrolyte Balance 7.0 mEq/L Normal 4.0-15.0 [facility] ([place] Comment on above: Order Comment: STAT Performed By: #### D SUMAN, PBNP, CBC, ADIFF, ANEU, TSH, CMP, GFR ####[address] [place], [place] [address] Globulin 3.6 G/dL Normal [facility] ([place] Comment on above: Order Comment: STAT Performed By: #### D SUMAN, PBNP, CBC, ADIFF, ANEU, TSH, CMP, GFR ####[address] [place], [place] [address] Glucose [Mass/Vol] 151 mg/dL High 83-110 [facility] ([place] Comment on above: Order Comment: STAT Performed By: #### D SUMAN, PBNP, CBC, ADIFF, ANEU, TSH, CMP, GFR ####[address] [place], [place] [address] Potassium [Moles/Vol] 3.9 mmol/L Normal 3.5-5.1 [facility] ([place] Comment on above: Order Comment: STAT Performed By: #### Cole SUMAN, PBNP, CBC, ADIFF, ANEU, TSH, CMP, GFR ####[address] [place], [place] [address] Sodium [Moles/Vol] 143 mmol/L Normal 136-145 [facility] ([place] Comment on above: Order Comment: STAT Performed By: #### Cole SUMAN, PBNP, CBC, ADIFF, ANEU, TSH, CMP, GFR ####[address] [place], [place] [address] Total Protein 7.1 G/dL Normal 6.4-8.2 [facility] ([place] Comment on above: Order Comment: STAT Performed By: #### D SUMAN, PBNP, CBC, ADIFF, ANEU, TSH, CMP, GFR ####[address] [place], [place] [address] Urea nitrogen [Mass/Vol] 60 mg/dL High 7-18 [facility] ([place] Comment on above: Order Comment: STAT Performed By: #### D SUMAN, PBNP, CBC, ADIFF, ANEU, TSH, CMP, GFR ####[address] [place], [place] [address] DIMERon 04-13-2023 D-Dimer 290 ng/mL D-DU High 0-230 [facility] ([place] Comment on above: Order Comment: STAT Result [...] CBC, ADIFF, ANEU, TSH, CMP, GFR ####[address] [place], [place] [address] LABORATORYOrdered By: SYSTEM SYSTEM on 04-13-2023 Albumin [...] B (Bld) [Mass/Vol] 1696 pg/mL High 0-450 [facility] ([place]) Comment on above: Order Comment: STAT Result Comment: NT-p roBNP results of less than 300 pg/mL effectivelyrules out acute congestive heart failure with 99% negative predictive value. Performed By: #### D SUMAN, PBNP, CBC, ADIFF, ANEU, TSH, CMP, GFR ####[address] [place], [place] [address] TSHon 04-13-2023 TSH Qn 2.44 m[IU]/L Normal 0.36-3.74 [facility] ([place] Comment on above: Order Comment: STAT Performed By: #### D SUMAN, PBNP, CBC, ADIFF, ANEU, TSH, CMP, GFR ####[address] [place], [place] [address] Absolute lymphocyte countOrd ered By: Dimitry Lott on 04-07-2023 Lymphocytes Auto (Unsp spec) [#/Vol] 1.29 10*3/uL 0.83-4.51 [facility] Automated lymphocyte count a s percentage of total leukocytesOrdered By: Dimitry Lott on 04-07-2023 Lymphocytes/100 WBC Auto (Unsp spec) 22.1 % 19-41 [facility] Basophil percentageOrdered B y: Dimitry Lott on 04-07-2023 Basophils/100 WBC (Bld) 0.5 % 0-1 [facility] Chloride [Moles/Vol] 103 mmol/L 98-107 [facility] Eosinophils/100 WBC (Bld) 5.8 % 0-5 [facility] Glucose [Mass/Vol] 195 mg/dL 74-106 [facility] Comment on above: Fasting Glucose resu lt greater than or equal to 126 mg/dL suggests DIABETES MELLITUS per A.D.A. criteria. Hemoglobin (Bld) [Mass/Vol] 10.0 g/dL 13.0-16.5 [facility] Monocytes/100 WBC (Bld) 7.4 % 0-10 [facility] Neutrophils (Bld) [#/Vol] 3.7 10*3/uL 2.0-7.7 [facility] Neutrophils/100 WBC (Bld) 63.9 % 47-70 [facility] Potassium [Moles/Vol] 4.3 mmol/L 3.5-5.1 [facility] Sodium [Moles/Vol] 140 mmol/L 136-145 [facility] WBC (Bld) [#/Vol] 5.8 10*3/uL 4.4-11.0 [facility] Determination of erythrocyte mean corpuscular volume (MCV)Ordered By: Dimitry Lott on 04-07-2023 MCV (RBC) [Entitic vol] 89.3 fL 80-94 [facility] Erythrocyte distribution wid th ratioOrdered By: Dimitry Lott on 04-07-2023 Erythrocyte distribution width (RBC) [Ratio] 15.7 % 11.6-14.6 [facility] Erythrocyte distribution wid th standard deviationOrdered By: Dimitry Lott on 04-07-2023 Erythrocyte distribution width (RBC) [Entitic vol] 50.7 fL 35.1-43.9 [facility] Hematocrit Auto (Bld) [Volum e fraction]Ordered By: Dimitry Lott on 04-07-2023 Hematocrit (Bld) [Volume fraction] 32.4 % 40-54 [facility] Immature granulocytes/100 WB C Auto (Bld)Ordered By: Dimitry Lott on 04-07-2023 Immature granulocytes/100 WBC (Bld) 0.300 % 0.0-0.9 [facility] Comment on above: IG% - Immature Granu locytes (promyelocytes, myelocytes and metamyelocytes) > 1% indicates that a LEFT SHIFT is Present. Laboratory - Chemistry and C hemistry - challengeOrdered By: Dimitry Lott on 04-07-2023 CO2 [Moles/Vol] 32.0 mmol/L 21.0-32.0 [facility] Urea nitrogen/Creatinine [Mass ratio] 21.7 mg/mg 10-20 [facility] Laboratory - Hematology and Cell countsOrdered By: Dimitry Lott on 04-07-2023 MCH (RBC) [Entitic mass] 27.5 pg 27.0-32.0 [facility] MCHC (RBC) [Mass/Vol] 30.9 g/dL 32-36 [facility] Nucleated RBC/100 WBC (Bld) [Ratio] 0 % 0-5 [facility] Platelets (Bld) [#/Vol] 110 10*3/uL 150-450 [facility] No Panel InformationOrdered By: Dimitry Lott on 04-07-2023 Estimated Creatinine Clearance Calc 26.68 ml/min [facility] Estimated GFR (MDRD) Amer 38 mL/min >60 [facility] Comment on above: GFR Calc Estimated GFR (MDRD) Non-Af Amer 31 mL/min >60 [facility] Comment on above: Non- GFR Calc Troponin I High Sensitivity 36 pg/mL 3.0-78.0 [facility] Comment on above: Please Note: New Arti t Units and Gender Specific Reference Ranges. For more information see Policy Stat Procedure [facility] High Sensitivity Troponin (TNIH) and attachments. Platelet mean volume Pee-Ec ker (Bld) [Entitic vol]Ordered By: Dimitry Lott on 04-07-2023 Platelet mean volume (Bld) [Entitic vol] 11.0 fL 6.2-12.0 [facility] RBC Auto (Bld) [#/Vol]Ordere d By: Dimitry Lott on 04-07-2023 RBC (Bld) [#/Vol] 3.63 10*6/uL 4.6-6.2 [facility] Serum or plasma calcium elmira urement (mass/volume)Ordered By: Dimitry Lott on 04-07-2023 Calcium [Mass/Vol] 9.2 mg/dL 8.5-10.1 [facility] Serum or plasma creatinine m easurement (mass/volume)Ordered By: Dimitry Lott on 04-07-2023 Creatinine [Mass/Vol] 2.17 mg/dL 0.70-1.30 [facility] Comment on above: The validity of the calculated GFR & GFRAA in patients over 70 years has not been determined. Clinical correlation is essential. Serum or plasma urea nitroge n measurement (mass/volume)Ordered By: Dimitry Lott on 04-07-2023 Urea nitrogen [Mass/Vol] 47 mg/dL 7-18 [facility] Thin prep Papanicolaou smear with manual screeningOrdered By: Dimitry Lott on 04-07-2023 Thin prep Papanicolaou smear with manual screening 5 5-15 [facility] Thin prep Papanicolaou smear with manual screeningOrdered By: Fredy Joy on 04-02-2023 Thin prep Papanicolaou smear with manual screening 170 mg/dL 74-106 [facility] Comment on above: MANAGEMENT OF PATIEN T CARE PER NURSING PROTOCOL US RENALon 03-22-2023 US RENAL Normal [facility] ([place]) .Auto Diffon 03-21-2023 Basophil, Absolute 0.0 10 3/mcL Normal 0.0-0.2 [facility] ([place]) Comment on above: Performed By: #### G FR, CMP, ADIFF, CBC, ANEU ####[address] [place], [place] [address] Basophils/100 WBC (Bld) 0.8 % Normal 0.0-2.5 A [facility] ([place]) Comment on above: Performed By: #### G FR, CMP, ADIFF, CBC, ANEU ####[address] [place], [place] [address] Eosinophil, Absolute 0.1 10 3/mcL Normal 0.0-0.4 [facility] ([place]) Comment on above: Performed By: #### G FR, CMP, ADIFF, CBC, ANEU ####[address] [place], [place] [address] Eosinophils/100 WBC (Bld) 1.4 % Normal 0.0-7.0 [facility] ([place] Comment on above: Performed By: #### G FR, CMP, ADIFF, CBC, ANEU ####[address] [place], [place] [address] Lymphocyte, Absolute 1.3 10 3/mcL Normal 0.8-3.9 [facility] ([place] Comment on above: Performed By: #### G FR, CMP, ADIFF, CBC, ANEU ####[address] [place], [place] [address] Lymphocytes/100 WBC (Bld) 25.8 % Normal 10.0-50.0 [facility] ([place]) Comment on above: Performed By: #### G FR, CMP, ADIFF, CBC, ANEU ####[address] [place], [place] [address] Monocyte, Absolute 0.4 10 3/mcL Normal 0.2-1.0 [facility] ([place]) Comment on above: Performed By: #### G FR, CMP, ADIFF, CBC, ANEU ####[address] [place], [place] [address] Monocytes/100 WBC (Bld) 8.6 % Normal 1.7-13.0 [facility] ([place]) Comment on above: Performed By: #### G FR, CMP, ADIFF, CBC, ANEU ####[address] [place], [place] [address] Neutrophils/100 WBC (Bld) 63.4 % Normal 37.0-80.0 [facility] ([place]) Comment on above: Performed By: #### G FR, CMP, ADIFF, CBC, ANEU ####[address] [place], [place] [address] .GFRon 03-21-2023 GFR Non- 29 ml/min/1.73sqm Normal [facility] ([place] Comment on above: Result Comment: GFR Population [...] FR, CMP, ADIFF, CBC, ANEU ####[address] [place], [place] [address] GFR 35 ml/min/1.73sqm Normal [facility] ([place] Comment on above: Result Comment: GFR Population [...] FR, CMP, ADIFF, CBC, ANEU ####[address] [place], [place] [address] .NEUABSon 03-21-2023 Neutrophil, Absolute 3.3 10 3/mcL Normal 2.9-6.2 [facility] ([place] Comment on above: Performed By: #### G FR, CMP, ADIFF, CBC, ANEU ####[address] [place], [place] [address] CBCon 03-21-2023 Erythrocyte distribution width (RBC) [Ratio] 17.4 % High 11.5-14.5 [facility] ([place] Comment on above: Performed By: #### G FR, CMP, ADIFF, CBC, ANEU ####[address] [place], [place] [address] Hematocrit (Bld) [Volume fraction] 31.1 % Low 42.0-52.0 [facility] ([place] Comment on above: Performed By: #### G FR, CMP, ADIFF, CBC, ANEU ####[address] [place], [place] [address] Hgb 10.3 G/dL Low 14.0-18.0 [facility] ([place] Comment on above: Performed By: #### G FR, CMP, ADIFF, CBC, ANEU ####[address] [place], [place] [address] MCH (RBC) [Entitic mass] 27.8 pg Normal 27.0-31.2 [facility] ([place] Comment on above: Performed By: #### G FR, CMP, ADIFF, CBC, ANEU ####[address] [place], [place] [address] MCHC 33.0 G/dL Normal 31.8-35.4 [facility] ([place] Comment on above: Performed By: #### G FR, CMP, ADIFF, CBC, ANEU ####[address] [place], [place] [address] MCV (RBC) [Entitic vol] 84.1 fL Normal 80.0-94.0 [facility] [facility] ([place]) Comment on above: Performed By: #### G FR, CMP, ADIFF, CBC, ANEU ####Katie [address] [place], [place] [address] Platelet 136 10 3/mcL Normal 130-400 [facility] ([place]) Comment on above: Performed By: #### G FR, CMP, ADIFF, CBC, ANEU ####Katie [address] [place], [place] [address] Platelet mean volume (Bld) [Entitic vol] 8.4 fL Normal 7.4-10.4 [facility] ([place] Comment on above: Performed By: #### G FR, CMP, ADIFF, CBC, ANEU ####Katie [address] [place], [place] [address] RBC 3.70 10 6/mcL Low 4.04-6.13 [facility] ([place] Comment on above: Performed By: #### G FR, CMP, ADIFF, CBC, ANEU ####K[address] [place], [place] [address] WBC 5.2 10 3/mcL Normal 4.6-10.8 [facility] ([place] Comment on above: Performed By: #### G FR, CMP, ADIFF, CBC, ANEU ####Katie [address] [place], [place] [address] CMPon 03-21-2023 Albumin Level 3.4 G/dL Normal 3.4-4.8 [facility] [place] Comment on above: Performed By: #### G FR, CMP, ADIFF, CBC, ANEU ####[address] [place], [place] [address] Albumin/Globulin [Mass ratio] 1.0 {ratio} Low 1.1-2.5 [facility] [place] Comment on above: Performed By: #### G FR, CMP, ADIFF, CBC, ANEU ####Katie [address] [place], [place] [address] ALP [Catalytic activity/Vol] 85 U/L Normal 40-135 [facility] ([place] Comment on above: Performed By: #### G FR, CMP, ADIFF, CBC, ANEU ####Katie [address] [place], [place] [address] ALT [Catalytic activity/Vol] 37 U/L Normal 16-63 [facility] [place] Comment on above: Performed By: #### G FR, CMP, ADIFF, CBC, ANEU ####Katie [address] [place], [place] [address] AST [Catalytic activity/Vol] 28 U/L Normal 10-40 [facility] [place] Comment on above: Performed By: #### G FR, CMP, ADIFF, CBC, ANEU ####Katie [address] [place], [place] [address] Bili Total 0.7 mg/dL Normal 0.2-1.0 [facility] [place] Comment on above: Result Comment: Use of this assay is not recommended for patients undergoing treatment with eltrombopag due to the potential for falsely elevated results. Performed By: #### G FR, CMP, ADIFF, CBC, ANEU ####[address] [place], [place] [address] BUN/Creatinine Ratio 21 ratio Normal 7-27 [facility] ([place] Comment on above: Performed By: #### G FR, CMP, ADIFF, CBC, ANEU ####[address] [place], [place] [address] Calcium [Mass/Vol] 9.2 mg/dL Normal 8.4-10.2 [facility] ([place] Comment on above: Performed By: #### G FR, CMP, ADIFF, CBC, ANEU ####[address] [place], [place] [address] Chloride [Moles/Vol] 101 mmol/L Normal 98-107 [facility] [place] Comment on above: Performed By: #### G FR, CMP, ADIFF, CBC, ANEU ####[address] [place], [place] [address] CO2 [Moles/Vol] 31 mmol/L Normal 23-31 [facility] [place] Comment on above: Performed By: #### G FR, CMP, ADIFF, CBC, ANEU ####[address] [place], [place] [address] Creatinine [Mass/Vol] 2.20 mg/dL High 0.70-1.30 [facility] ([place] Comment on above: Performed By: #### G FR, CMP, ADIFF, CBC, ANEU ####[address] [place], [place] [address] Electrolyte Balance 10.0 mEq/L Normal 4.0-15.0 [facility] [place] Comment on above: Performed By: #### G FR, CMP, ADIFF, CBC, ANEU ####[address] [place], [place] [address] Globulin 3.5 G/dL Normal [facility] [place] Comment on above: Performed By: #### G FR, CMP, ADIFF, CBC, ANEU ####[address] [place], [place] [address] Glucose [Mass/Vol] 150 mg/dL High 83-110 [facility] [place] Comment on above: Performed By: #### G FR, CMP, ADIFF, CBC, ANEU ####[address] [place], [place] [address] Potassium [Moles/Vol] 4.4 mmol/L Normal 3.5-5.1 [facility] [place] Comment on above: Performed By: #### G FR, CMP, ADIFF, CBC, ANEU ####[address] [place], [place] [address] Sodium [Moles/Vol] 142 mmol/L Normal 136-145 [facility] [place] Comment on above: Performed By: #### G FR, CMP, ADIFF, CBC, ANEU ####Katie [address] [place], [place] [address] Total Protein 6.9 G/dL Normal 6.4-8.2 [facility] [place] Comment on above: Performed By: #### G FR, CMP, ADIFF, CBC, ANEU ####Katielilibeth [address] [place], [place] [address] Urea nitrogen [Mass/Vol] 47 mg/dL High 7-18 [facility] [place] Comment on above: Performed By: #### G FR, CMP, ADIFF, CBC, ANEU ####Katie [address] [place], [place] [address] Absolute lymphocyte countOrd ered By: Fred Ramos on 03-09-2023 Lymphocytes Auto (Unsp spec) [#/Vol] 1.07 10*3/uL 0.83-4.51 [facility] Basophil percentageOrdered B y: Fred Ramos on 03-09-2023 Basophils/100 WBC (Bld) 0.5 % 0-1 [facility] Chloride [Moles/Vol] 110 mmol/L 98-107 [facility] Eosinophils/100 WBC (Bld) 5.8 % 0-5 [facility] Glucose [Mass/Vol] 123 mg/dL 74-106 [facility] Comment on above: Fasting Glucose resu lt from 100 to 125 mg/dL suggests IMPAIRED HOMEOSTASIS per A.D.A. criteria. Neutrophils (Bld) [#/Vol] 2.4 10*3/uL 2.0-7.7 [facility] Neutrophils/100 WBC (Bld) 57.7 % 47-70 [facility] Potassium [Moles/Vol] 4.3 mmol/L 3.5-5.1 [facility] Sodium [Moles/Vol] 143 mmol/L 136-145 [facility] WBC (Bld) [#/Vol] 4.2 10*3/uL 4.4-11.0 [facility] Blood erythrocytes count (nu mber/volume)Ordered By: Fred Ramos on 03-09-2023 RBC (Bld) [#/Vol] 3.44 10*6/uL 4.6-6.2 [facility] Blood hemoglobin measurement (mass/volume)Ordered By: Fred Ramos on 03-09-2023 Hemoglobin (Bld) [Mass/Vol] 9.3 g/dL 13.0-16.5 [facility] Blood lymphocytes/100 leukoc ytesOrdered By: Fred Ramos on 03-09-2023 Lymphocytes/100 WBC (Bld) 25.7 % 19-41 [facility] Blood monocytes/100 leukocyt esOrdered By: Fred Ramos on 03-09-2023 Monocytes/100 WBC (Bld) 9.8 % 0-10 [facility] Blood platelet mean volumeOr dered By: Fred Ramos on 03-09-2023 Platelet mean volume (Bld) [Entitic vol] 11.1 fL 6.2-12.0 [facility] Clostridioides difficile nuc leic acid assay by PCROrdered By: Fred Ramos on 03-09-2023 C. difficile DNA JSOH+probe Ql (Unsp spec) [facility] Clostridium difficile detect ion by polymerase chain reactionOrdered By: Fred Ramos on 03-09-2023 C. difficile DNA JOSH+probe Ql (Unsp spec) [facility] Determination of erythrocyte mean corpuscular volume (MCV)Ordered By: Fred Ramos on 03-09-2023 MCV (RBC) [Entitic vol] 87.8 fL 80-94 [facility] Glucose Glucometer (dC) [M ass/Vol]Ordered By: Fred Ramos on 03-09-2023 Glucose [Mass/Vol] 167 mg/dL 74-106 [facility] Comment on above: MANAGEMENT OF PATIEN T CARE PER NURSING PROTOCOL Hematocrit Auto (Bld) [Volum e fraction]Ordered By: Fred Ramos on 12-29-2023 Hematocrit (Bld) [Volume fraction] 30.2 % 40-54 [facility] - Chemistry and C hemistry - challengeOrdered By: Fred Ramos on 03-09-2023 CO2 [Moles/Vol] 28.0 mmol/L 21.0-32.0 [facility] Urea nitrogen/Creatinine [Mass ratio] 26.2 mg/mg 10-20 [facility] - Hematology and Cell countsOrdered By: Fred Ramos on 03-09-2023 Erythrocyte distribution width (RBC) [Entitic vol] 55.2 fL 35.1-43.9 [facility] Erythrocyte distribution width (RBC) [Ratio] 17.4 % 11.6-14.6 [facility] Immature granulocytes/100 WBC (Bld) 0.500 % 0.0-0.9 [facility] Comment on above: IG% - Immature Granu locytes (promyelocytes, myelocytes and metamyelocytes) > 1% indicates that a LEFT SHIFT is Present. MCH (RBC) [Entitic mass] 27.0 pg 27.0-32.0 [facility] Nucleated RBC/100 WBC (Bld) [Ratio] 0 % 0-5 [facility] MCHC Auto (RBC) [Mass/Vol]Or dered By: Fred Ramos on 03-09-2023 MCHC (RBC) [Mass/Vol] 30.8 g/dL 32-36 [facility] No Panel InformationOrdered By: Fred Ramos on 03-09-2023 Estimated Creatinine Clearance Calc 25.49 ml/min [facility] Estimated GFR (MDRD) Amer 43 mL/min >60 [facility] Comment on above: GFR Calc Estimated GFR (MDRD) Non-Af Amer 36 mL/min >60 [facility] Comment on above: Non- GFR Calc Platelets bldOrdered By: Alana Ramos on 03-09-2023 Platelets (Bld) [#/Vol] 108 10*3/uL 150-450 [facility] Serum or plasma calcium elmira urement (mass/volume)Ordered By: Fred Ramos on 03-09-2023 Calcium [Mass/Vol] 9.5 mg/dL 8.5-10.1 [facility] Serum or plasma creatinine m easurement (mass/volume)Ordered By: Fred Ramos on 03-09-2023 Creatinine [Mass/Vol] 1.91 mg/dL 0.70-1.30 [facility] Comment on above: The validity of the calculated GFR & GFRAA in patients over 70 years has not been determined. Clinical correlation is essential. Serum or plasma urea nitroge n measurement (mass/volume)Ordered By: Fred Ramos on 03-09-2023 Urea nitrogen [Mass/Vol] 50 mg/dL 7-18 [facility] Stool enteric pathogen panel by probe and target amplification methodOrdered By: Fred Ramos on 03-09-2023 Gastrointestinal pathogens panel JOSH+probe (Stl) [facility] Gastrointestinal pathogens panel JOSH+probe (Stl) [facility] Thin prep Papanicolaou smear with manual screeningOrdered By: Fred Ramos on 03-09-2023 Thin prep Papanicolaou smear with manual screening 5 5-15 [facility] Blood manual differential co mment interpretation (narrative result)Ordered By: Romario Blancas on 03-08-2023 Manual differential comment Ric (Bld) [Interp] SCANNED [facility] Comment on above: MODERATE DECREASED T HROMBOCYTOPENIA Giardia lamblia ag stool EIA Ordered By: Fred Ramos on 03-08-2023 G. lamblia Ag IA Ql (Stl) Negative Negative [facility] Comment on above: Performed at: [address] [id number] Director: Tanmay Damon PhD, Phone: [phone] Absolute lymphocyte countOrd ered By: Eric Lester on 03-07-2023 Lymphocytes Auto (Unsp spec) [#/Vol] 1.02 10*3/uL 0.83-4.51 [facility] Basophil percentageOrdered B y: Eric Lester on 03-07-2023 Basophils/100 WBC (Bld) 0.2 % 0-1 [facility] Chloride [Moles/Vol] 107 mmol/L 98-107 [facility] Eosinophils/100 WBC (Bld) 2.5 % 0-5 [facility] Glucose [Mass/Vol] 223 mg/dL 74-106 [facility] Comment on above: Glucose result great er than or equal to 200 mg/dLsuggests DIABETES MELLITUS per A.D.A. criteria. Neutrophils (Bld) [#/Vol] 2.6 10*3/uL 2.0-7.7 [facility] Neutrophils/100 WBC (Bld) 63.7 % 47-70 [facility] Potassium [Moles/Vol] 4.2 mmol/L 3.5-5.1 [facility] Sodium [Moles/Vol] 143 mmol/L 136-145 [facility] WBC (Bld) [#/Vol] 4.0 10*3/uL 4.4-11.0 [facility] Blood erythrocytes count (nu mber/volume)Ordered By: Eric Lester on 03-07-2023 RBC (Bld) [#/Vol] 2.70 10*6/uL 4.6-6.2 [facility] Blood hemoglobin measurement (mass/volume)Ordered By: Eric Lester on 03-07-2023 Hemoglobin (Bld) [Mass/Vol] 7.5 g/dL 13.0-16.5 [facility] Blood lymphocytes/100 leukoc ytesOrdered By: Eric Lester on 03-07-2023 Lymphocytes/100 WBC (Bld) 25.2 % 19-41 [facility] Blood monocytes/100 leukocyt esOrdered By: Eric Lester on 03-07-2023 Monocytes/100 WBC (Bld) 8.2 % 0-10 [facility] Blood platelet mean volumeOr dered By: Eric Lester on 03-07-2023 Platelet mean volume (Bld) [Entitic vol] 11.9 fL 6.2-12.0 [facility] Determination of erythrocyte mean corpuscular volume (MCV)Ordered By: Eric Lester on 03-07-2023 MCV (RBC) [Entitic vol] 90.7 fL 80-94 [facility] Hematocrit Auto (Bld) [Volum e fraction]Ordered By: Eric Lester on 03-07-2023 Hematocrit (Bld) [Volume fraction] 24.5 % 40-54 [facility] Influenza virus A and B and SARS-CoV-2 (COVID-19) Ag panel - Upper respiratory specimOrdered By: Eric Lester on 03-07-2023 SARS-CoV-2 (COVID-19) RNA JOSH+probe Ql (Resp) [facility] - Chemistry and C hemistry - challengeOrdered By: Eric Lester on 03-07-2023 CO2 [Moles/Vol] 29.0 mmol/L 21.0-32.0 [facility] Natriuretic peptide B (Bld) [Mass/Vol] 78.3 pg/mL 0-100 [facility] Urea nitrogen/Creatinine [Mass ratio] 28.8 mg/mg 10-20 [facility] - Hematology and Cell countsOrdered By: Eric Lester on 03-07-2023 Erythrocyte distribution width (RBC) [Entitic vol] 55.5 fL 35.1-43.9 [facility] Erythrocyte distribution width (RBC) [Ratio] 17.1 % 11.6-14.6 [facility] Immature granulocytes/100 WBC (Bld) 0.200 % 0.0-0.9 [facility] Comment on above: IG% - Immature Granu locytes (promyelocytes, myelocytes and metamyelocytes) > 1% indicates that a LEFT SHIFT is Present. MCH (RBC) [Entitic mass] 27.8 pg 27.0-32.0 [facility] Nucleated RBC/100 WBC (Bld) [Ratio] 0 % 0-5 [facility] Lower GI hemoglobin IA Ql (S tl)Ordered By: Eric Lester on 03-07-2023 Stool Occult Blood (CLARY) Positive [facility] MCHC Auto (RBC) [Mass/Vol]Or dered By: Eric Lester on 03-07-2023 MCHC (RBC) [Mass/Vol] 30.6 g/dL 32-36 [facility] No Panel InformationOrdered By: Eric Lester on 03-07-2023 Estimated Creatinine Clearance Calc 18.24 ml/min [facility] Estimated GFR (MDRD) Amer 30 mL/min >60 [facility] Comment on above: GFR Calc Estimated GFR (MDRD) Non-Af Amer 24 mL/min >60 [facility] Comment on above: Non- GFR Calc Troponin I High Sensitivity 34 pg/mL 3.0-78.0 [facility] Comment on above: Please Note: New Arti t Units and Gender Specific Reference Ranges. For more information see Policy Stat Procedure [place] High Sensitivity Troponin (TNIH) and attachments. Platelets bldOrdered By: Sky Lester on 03-07-2023 Platelets (Bld) [#/Vol] 107 10*3/uL 150-450 [facility] Serum or plasma calcium elmira urement (mass/volume)Ordered By: Eric Lester on 03-07-2023 Calcium [Mass/Vol] 9.1 mg/dL 8.5-10.1 [facility] Serum or plasma creatinine m easurement (mass/volume)Ordered By: Eric Lester on 03-07-2023 Creatinine [Mass/Vol] 2.67 mg/dL 0.70-1.30 [facility] Comment on above: The validity of the calculated GFR & GFRAA in patients over 70 years has not been determined. Clinical correlation is essential. Serum or plasma urea nitroge n measurement (mass/volume)Ordered By: Eric Lester on 03-07-2023 Urea nitrogen [Mass/Vol] 77 mg/dL 7-18 [facility] Thin prep Papanicolaou smear with manual screeningOrdered By: Eric Lester on 03-07-2023 Thin prep Papanicolaou smear with manual screening 7 5-15 [facility] Upper respiratory specimen i nfluenza A virus, influenza B virus, and severe acute resOrdered By: Eric Lester on 03-07-2023 Upper respiratory specimen influenza A virus, influenza B virus, and severe acute res [facility] Upper respiratory specimen i nfluenza A virus, influenza B virus, and severe acute respiratory syndromOrdered By: Eric Lester on 03-07-2023 Upper respiratory specimen influenza A virus, influenza B virus, and severe acute respiratory syndrom [facility] .Auto Diffon 02-28-2023 Basophil, Absolute 0.0 10 3/mcL Normal 0.0-0.2 [facility] [place] Comment on above: Performed By: #### G FR, CMP, ANEU, URIC, ADIFF, CBC ####Katie [address] [place], [place] [address] Basophils/100 WBC (Bld) 0.4 % Normal 0.0-2.5 [facility] ([place] Comment on above: Performed By: #### G FR, CMP, ANEU, URIC, ADIFF, CBC ####Katie [address] [place], [place] [address] Eosinophil, Absolute 0.2 10 3/mcL Normal 0.0-0.4 [facility] ([place] Comment on above: Performed By: #### G FR, CMP, ANEU, URIC, ADIFF, CBC ####Katie [address] [place], [place] [address] Eosinophils/100 WBC (Bld) 2.4 % Normal 0.0-7.0 [facility] [place] Comment on above: Performed By: #### G FR, CMP, ANEU, URIC, ADIFF, CBC ####Katie [address] [place], [place] [address] Lymphocyte, Absolute 1.1 10 3/mcL Normal 0.8-3.9 [facility] ([place] Comment on above: Performed By: #### G FR, CMP, ANEU, URIC, ADIFF, CBC ####Katie [address] [place], [place] [address] Lymphocytes/100 WBC (Bld) 16.1 % Normal 10.0-50.0 [facility] [place] Comment on above: Performed By: #### G FR, CMP, ANEU, URIC, ADIFF, CBC ####Katie [address] [place], [place] [address] Monocyte, Absolute 0.4 10 3/mcL Normal 0.2-1.0 [facility] [place] Comment on above: Performed By: #### G FR, CMP, ANEU, URIC, ADIFF, CBC ####Katie [address] [place], [place] [address] Monocytes/100 WBC (Bld) 5.1 % Normal 1.7-13.0 [facility] ([place] Comment on above: Performed By: #### G FR, CMP, ANEU, URIC, ADIFF, CBC ####Katie [address] [place], [place] [address] Neutrophils/100 WBC (Bld) 76.0 % Normal 37.0-80.0 [facility] [place] Comment on above: Performed By: #### G FR, CMP, ANEU, URIC, ADIFF, CBC ####Katie [address] [place], [place] [address] .GFRon 02-28-2023 GFR 31 ml/min/1.73sqm Normal [facility] [place] Comment on above: Result Comment: GFR Population [...] CMP, ANEU, URIC, ADIFF, CBC ####Katie [address] [place], [place] [address] GFR Non- 26 ml/min/1.73sqm Normal [facility] [place] Comment on above: Result Comment: GFR Population [...] CMP, ANEU, URIC, ADIFF, CBC ####Katie [address] [place], [place] [address] .NEUABSon 02-28-2023 Neutrophil, Absolute 5.3 10 3/mcL Normal 2.9-6.2 [facility] [place] Comment on above: Performed By: #### G FR, CMP, ANEU, URIC, ADIFF, CBC ####Katie [address] [place], [place] [address] CBCon 02-28-2023 Erythrocyte distribution width (RBC) [Ratio] 17.6 % High 11.5-14.5 [facility] [place] Comment on above: Performed By: #### G FR, CMP, ANEU, URIC, ADIFF, CBC ####Katie [address] [place] [address] Hematocrit (Bld) [Volume fraction] 28.8 % Low 42.0-52.0 [facility] [place] Comment on above: Performed By: #### G FR, CMP, ANEU, URIC, ADIFF, CBC ####Katie [address] [place] [address] Hgb 9.2 G/dL Low 14.0-18.0 [facility] [place] Comment on above: Performed By: #### G FR, CMP, ANEU, URIC, ADIFF, CBC ####Katie [address] [place] [address] MCH (RBC) [Entitic mass] 26.7 pg Low 27.0-31.2 [facility] [place] Comment on above: Performed By: #### G FR, CMP, ANEU, URIC, ADIFF, CBC ####Katie [address] [place] [address] MCHC 32.0 G/dL Normal 31.8-35.4 [facility] [place] Comment on above: Performed By: #### G FR, CMP, ANEU, URIC, ADIFF, CBC ####Katie [address] [place] [id number] MCV (RBC) [Entitic vol] 83.5 fL Normal 80.0-94.0 [facility] ([place] Comment on above: Performed By: #### G FR, CMP, ANEU, URIC, ADIFF, CBC ####Katie [address] [place], [place] [address] Platelet 91 10 3/mcL Low 130-400 [facility] [place] Comment on above: Performed By: #### G FR, CMP, ANEU, URIC, ADIFF, CBC ####Katie [address] [place], [place] [address] Platelet mean volume (Bld) [Entitic vol] 9.9 fL Normal 7.4-10.4 [facility] [place] Comment on above: Performed By: #### G FR, CMP, ANEU, URIC, ADIFF, CBC ####Katie [address] [place], [place] [address] RBC 3.45 10 6/mcL Low 4.04-6.13 [facility] [place] Comment on above: Performed By: #### G FR, CMP, ANEU, URIC, ADIFF, CBC ####Katie [address] [place], [place] [address] WBC 7.0 10 3/mcL Normal 4.6-10.8 [facility] [place] Comment on above: Performed By: #### G FR, CMP, ANEU, URIC, ADIFF, CBC ####Katie [address] [place], [place] [address] CMPon 02-28-2023 Albumin Level 3.2 G/dL Low 3.4-4.8 [facility] [place] Comment on above: Performed By: #### G FR, CMP, ANEU, URIC, ADIFF, CBC ####Katie [address] [place], [place] [address] Albumin/Globulin [Mass ratio] 1.0 {ratio} Low 1.1-2.5 [facility] [place] Comment on above: Performed By: #### G FR, CMP, ANEU, URIC, ADIFF, CBC ####K[address] [place], [place] [address] ALP [Catalytic activity/Vol] 72 U/L Normal 40-135 [facility] [place] Comment on above: Performed By: #### G FR, CMP, ANEU, URIC, ADIFF, CBC ####Katie [address] [place], [place] [address] ALT [Catalytic activity/Vol] 50 U/L Normal 16-63 [facility] [place] Comment on above: Performed By: #### G FR, CMP, ANEU, URIC, ADIFF, CBC ####K[address] [place], [place] [address] AST [Catalytic activity/Vol] 18 U/L Normal 10-40 [facility] [place] Comment on above: Performed By: #### G FR, CMP, ANEU, URIC, ADIFF, CBC ####Katie [address] [place], [place] [address] Bili Total 1.0 mg/dL Normal 0.2-1.0 [facility] [place] Comment on above: Result Comment: Use of this assay is not recommended for patients undergoing treatment with eltrombopag due to the potential for falsely elevated results. Performed By: #### G FR, CMP, ANEU, URIC, ADIFF, CBC ####Katie [address] [place], [place] [address] BUN/Creatinine Ratio 30 ratio High 7-27 [facility] [place] Comment on above: Performed By: #### G FR, CMP, ANEU, URIC, ADIFF, CBC ####Katie [address] [place], [place] [address] Calcium [Mass/Vol] 9.4 mg/dL Normal 8.4-10.2 [facility] [place] Comment on above: Performed By: #### G FR, CMP, ANEU, URIC, ADIFF, CBC ####Katie [address] [place], [place] [address] Chloride [Moles/Vol] 103 mmol/L Normal 98-107 [facility] [place] Comment on above: Performed By: #### G FR, CMP, ANEU, URIC, ADIFF, CBC ####Katie [address] [place], [place] [address] CO2 [Moles/Vol] 30 mmol/L Normal 23-31 [facility] [place] Comment on above: Performed By: #### G FR, CMP, ANEU, URIC, ADIFF, CBC ####K[address] [place], [place] [address] Creatinine [Mass/Vol] 2.42 mg/dL High 0.70-1.30 [facility] [place] Comment on above: Performed By: #### G FR, CMP, ANEU, URIC, ADIFF, CBC ####K[address] [place], [place] [address] Electrolyte Balance 9.0 mEq/L Normal 4.0-15.0 [facility] [place] Comment on above: Performed By: #### G FR, CMP, ANEU, URIC, ADIFF, CBC ####K[address] [place], [place] [address] Globulin 3.2 G/dL Normal [facility] ([place] Comment on above: Performed By: #### G FR, CMP, ANEU, URIC, ADIFF, CBC ####K[address] [place], [place] [address] Glucose [Mass/Vol] 173 mg/dL High 83-110 [facility] [place] Comment on above: Performed By: #### G FR, CMP, ANEU, URIC, ADIFF, CBC ####Katie [address] [place], [place] [address] Potassium [Moles/Vol] 4.8 mmol/L Normal 3.5-5.1 [facility] ([place] Comment on above: Performed By: #### G FR, CMP, ANEU, URIC, ADIFF, CBC ####K[address] [place], [place] [address] Sodium [Moles/Vol] 142 mmol/L Normal 136-145 [facility] [place] Comment on above: Performed By: #### G FR, CMP, ANEU, URIC, ADIFF, CBC ####K[address] [place], [place] [address] Total Protein 6.4 G/dL Normal 6.4-8.2 [facility] [place] Comment on above: Performed By: #### G FR, CMP, ANEU, URIC, ADIFF, CBC ####Katie [address] [place], [place] [address] Urea nitrogen [Mass/Vol] 73 mg/dL High 7-18 [facility] [place] Comment on above: Performed By: #### G FR, CMP, ANEU, URIC, ADIFF, CBC ####Katie [address] [place], [place] [address] LABORATORYOrdered By: SYSTEM SYSTEM on 02-28-2023 Albumin [...] Uric Acid Lvl 9.8 mg/dL High 3.5-7.2 [facility] [place] Comment on above: Performed By: #### G FR, CMP, ANEU, URIC, ADIFF, CBC ####[place] [address] [place] [address] SPEon 02-22-2023 SPE Interpretation Normal serum protein electrophoresis pattern. No abnormality detected. Normal [facility] ([place] Comment on above: Result Comment: Elec tronically Signed by: MELONIE CERDA MD02/22/2023 12:24 EST Performed By: #### U JENNIFER, FERR, CBC, FES, ANEU, RFP, ADIFF, GFR, VIDH ####[place] [address]#### PTH, SPE ####[place] [address] Albumin 3.7 G/dL Normal 3.3-5.0 [facility] [place] Comment on above: Performed By: #### U JENNIFER, FERR, CBC, FES, ANEU, RFP, ADIFF, GFR, VIDH ####[place] [address]#### PTH, SPE ####[place] [address] Alpha 1 0.2 G/dL Normal 0.1-0.4 [facility] ([place] Comment on above: Performed By: #### U JENNIFER, FERR, CBC, FES, ANEU, RFP, ADIFF, GFR, VIDH ####[place] [address]#### PTH, SPE ####[place] [address] Alpha 2 1.1 G/dL Normal 0.6-1.2 [facility] ([place] Comment on above: Performed By: #### U JENNIFER, FERR, CBC, FES, ANEU, RFP, ADIFF, GFR, VIDH ####[place] [address]#### PTH, SPE ####[place] [address] Beta 1.1 G/dL Normal 0.6-1.3 [facility] [place] Comment on above: Performed By: #### U JENNIFER, FERR, CBC, FES, ANEU, RFP, ADIFF, GFR, VIDH ####[facility] [place], [place] [address]#### PTH, SPE ####[place] [address] Gamma 0.9 G/dL Normal 0.7-1.6 [facility] ([place]) Comment on above: Performed By: #### U JENNIFER, FERR, CBC, FES, ANEU, RFP, ADIFF, GFR, VIDH ####[facility] [place] [address]#### PTH, SPE ####[place] [address] .Urinalysis Microscopic (AO) on 02-21-2023 UA RBC 0-5 Abnormal None Seen [facility] ([place]) Comment on above: Performed By: #### U AMICAO, CRUR, UA, PRUR ####[place] [address] [place], [place] [address] UA Squam Epithelial 0-5 Abnormal None [facility]en [facility] ([place]) Comment on above: Performed By: #### U AMICAO, CRUR, UA, PRUR ####[place] [address] [place], [place] [address] UA WBC 0-5 Abnormal None Seen [facility] ([place] Comment on above: Performed By: #### U AMICAO, CRUR, UA, PRUR ####[address]atie [address] [place], [place] [address] CRURon 02-21-2023 U Creatinine 71.9 mg/dL Normal 39.0-259.0 [facility] ([place] Comment on above: Performed By: #### U AMICAO, CRUR, UA, PRUR ####[place] [address] [place], [place] [address] PRURon 02-21-2023 U Protein 19 mg/dL High 0-11 [facility] ([place] Comment on above: Performed By: #### U AMICAO, CRUR, UA, PRUR ####[address] [place], [place] [address] UAon 02-21-2023 Color (U) Yellow Normal [facility] ([place] Comment on above: Performed By: #### U AMICAO, CRUR, UA, PRUR ####[address] [place] [address] Glucose (U) [Mass/Vol] 500 mg/dL Abnormal Negative [facility] ([place]) Comment on above: Performed By: #### U AMICAO, CRUR, UA, PRUR ####[address] [place] [address] Ketones Ql (U) Negative Normal Negative [facility] ([place] Comment on above: Performed By: #### U AMICAO, CRUR, UA, PRUR ####[place] [place] [place] [address] UA Appear Clear Normal Clear [facility] ([place] Comment on above: Performed By: #### U AMICAO, CRUR, UA, PRUR ####[place] [address] [place], [place] [address] UA Blood Negative Normal Negative [facility] ([place] Comment on above: Performed By: #### U AMICAO, CRUR, UA, PRUR ####[address] [place], [place] [address] UA Leuk Est Negative Normal Negative [facility] ([place] Comment on above: Performed By: #### U AMICAO, CRUR, UA, PRUR ####[address] [place], [place] [address] UA Nitrite Negative Normal Negative [facility] ([place] Comment on above: Performed By: #### U AMICAO, CRUR, UA, PRUR ####[address] [place] [address] UA pH 5.5 Normal 5.0 - 8.0 [facility] ([place] Comment on above: Performed By: #### U AMICAO, CRUR, UA, PRUR ####[address] [place] [place], [place] [address] UA Protein 30 mg/dL Normal Negative [facility] ([place] Comment on above: Performed By: #### U AMICAO, CRUR, UA, PRUR ####[address] [place], [place] [address] UA Spec Grav 1.015 Normal 1.015-1.025 [facility] ([place] Comment on above: Performed By: #### U AMICAO, CRUR, UA, PRUR ####[address] [place] [place], [place] [address] UA Specimen Type Not Given Normal [facility] ([place] Comment on above: Performed By: #### U AMICAO, CRUR, UA, PRUR ####[address] [place] [place], [place] [address] UA Urobilinogen 0.2 E.U./dL Normal 0.2-1.0 [facility] ([place] Comment on above: Performed By: #### U AMICAO, CRUR, UA, PRUR ####[place] [place], [place] [address] Urobilinogen (U) [Mass/Vol] Negative Normal Negative [facility] ([place] Comment on above: Performed By: #### U AMICAO, CRUR, UA, PRUR ####[address] [place], [place] [address] .Auto Diffon 02-20-2023 Basophil, Absolute 0.0 10 3/mcL Normal 0.0-0.2 [facility] ([place]) Comment on above: Performed By: #### U JENNIFER, FERR, CBC, FES, ANEU, RFP, ADIFF, GFR, VIDH ####[place] [address]#### PTH, SPE ####[address] [address] Basophils/100 WBC (Bld) 0.3 % Normal 0.0-2.5 A [facility] ([place]) Comment on above: Performed By: #### U JENNIFER, FERR, CBC, FES, ANEU, RFP, ADIFF, GFR, VIDH ####[place] [address]#### PTH, SPE ####[address] [address] Eosinophil, Absolute 0.2 10 3/mcL Normal 0.0-0.4 [facility] ([place] Comment on above: Performed By: #### U JENNIFER, FERR, CBC, FES, ANEU, RFP, ADIFF, GFR, VIDH ####[place] [address]#### PTH, SPE ####[address] [address] Eosinophils/100 WBC (Bld) 1.7 % Normal 0.0-7.0 [facility] ([place]) Comment on above: Performed By: #### U JENNIFER, FERR, CBC, FES, ANEU, RFP, ADIFF, GFR, VIDH ####[place] [address]#### PTH, SPE ####[address] [address] Lymphocyte, Absolute 2.6 10 3/mcL Normal 0.8-3.9 [facility] ([place] Comment on above: Performed By: #### U JENNIFER, FERR, CBC, FES, ANEU, RFP, ADIFF, GFR, VIDH ####[place] [address]#### PTH, SPE ####[address] [address] Lymphocytes/100 WBC (Bld) 17.8 % Normal 10.0-50.0 [facility] ([place] Comment on above: Performed By: #### U JENNIFER, FERR, CBC, FES, ANEU, RFP, ADIFF, GFR, VIDH ####[place] [address]#### PTH, SPE ####[place] [address] Monocyte, Absolute 0.9 10 3/mcL Normal 0.2-1.0 [facility] ([place] Comment on above: Performed By: #### U JENNIFER, FERR, CBC, FES, ANEU, RFP, ADIFF, GFR, VIDH ####[address] [address]#### PTH, SPE ####[address] [address] Monocytes/100 WBC (Bld) 6.0 % Normal 1.7-13.0 A [facility] ([place]) Comment on above: Performed By: #### U JENNIFER, FERR, CBC, FES, ANEU, RFP, ADIFF, GFR, VIDH ####[address] [address]#### PTH, SPE ####[address] [address] Neutrophils/100 WBC (Bld) 74.2 % Normal 37.0-80.0 [facility] ([place] Comment on above: Performed By: #### U JENNIFER, FERR, CBC, FES, ANEU, RFP, ADIFF, GFR, VIDH ####[address] [address]#### PTH, SPE ####[address] [address] .GFRon 02-20-2023 GFR Non- 23 ml/min/1.73sqm Normal [facility] ([place] Comment on above: Result Comment: GFR Population [...] CBC, FES, ANEU, RFP, ADIFF, GFR, VIDH ####[facility] [place] [id number]#### PTH, SPE ####[place] [address] GFR 27 ml/min/1.73sqm Normal [facility] ([place] Comment on above: Result Comment: GFR Population [...] CBC, FES, ANEU, RFP, ADIFF, GFR, VIDH ####[facility] [place] [address]#### PTH, SPE ####[place] [address] .NEUABSon 02-20-2023 Neutrophil, Absolute 10.8 10 3/mcL High 2.9-6.2 A [facility] ([place] Comment on above: Performed By: #### U JENNIFER, FERR, CBC, FES, ANEU, RFP, ADIFF, GFR, VIDH ####[facility] [place] [id number]#### PTH, SPE ####[place] [address] CBCon 02-20-2023 Erythrocyte distribution width (RBC) [Ratio] 17.0 % High 11.5-14.5 [facility] ([place] Comment on above: Performed By: #### U JENNIFER, FERR, CBC, FES, ANEU, RFP, ADIFF, GFR, VIDH ####[place] [address]#### PTH, SPE ####[place] [address] Hematocrit (Bld) [Volume fraction] 31.5 % Low 42.0-52.0 [facility] ([place] Comment on above: Performed By: #### U JENNIFER, FERR, CBC, FES, ANEU, RFP, ADIFF, GFR, VIDH ####[place] [address]#### PTH, SPE ####[place] [address] Hgb 10.2 G/dL Low 14.0-18.0 [facility] ([place] Comment on above: Performed By: #### U JENNIFER, FERR, CBC, FES, ANEU, RFP, ADIFF, GFR, VIDH ####[place] [address]#### PTH, SPE ####[place] [address] MCH (RBC) [Entitic mass] 26.5 pg Low 27.0-31.2 [facility] ([place] Comment on above: Performed By: #### U JENNIFER, FERR, CBC, FES, ANEU, RFP, ADIFF, GFR, VIDH ####[place] [address]#### PTH, SPE ####[place] [address] MCHC 32.4 G/dL Normal 31.8-35.4 [facility] ([place] Comment on above: Performed By: #### U JENNIFER, FERR, CBC, FES, ANEU, RFP, ADIFF, GFR, VIDH ####[place] [address]#### PTH, SPE ####[place] [address] MCV (RBC) [Entitic vol] 81.9 fL Normal 80.0-94.0 A [facility] ([place] Comment on above: Performed By: #### U JENNIFER, FERR, CBC, FES, ANEU, RFP, ADIFF, GFR, VIDH ####[place] [address]#### PTH, SPE ####[place] [address] Platelet 165 10 3/mcL Normal 130-400 [facility] ([place] Comment on above: Performed By: #### U JENNIFER, FERR, CBC, FES, ANEU, RFP, ADIFF, GFR, VIDH ####[place] [address]#### PTH, SPE ####[place] [address] Platelet mean volume (Bld) [Entitic vol] 9.0 fL Normal 7.4-10.4 [facility] [place] Comment on above: Performed By: #### U JENNIFER, FERR, CBC, FES, ANEU, RFP, ADIFF, GFR, VIDH ####[place] [address]#### PTH, SPE ####[place] [address] RBC 3.85 10 6/mcL Low 4.04-6.13 [facility] ([place] Comment on above: Performed By: #### U JENNIFER, FERR, CBC, FES, ANEU, RFP, ADIFF, GFR, VIDH ####[place] [address]#### PTH, SPE ####[place] [address] WBC 14.5 10 3/mcL High 4.6-10.8 [facility] ([place] Comment on above: Performed By: #### U JENNIFER, FERR, CBC, FES, ANEU, RFP, ADIFF, GFR, VIDH ####[place] [address]#### PTH, SPE ####[place] [address] Jerica 02-20-2023 Ferritin [Mass/Vol] 27.0 ng/mL Normal 26.0-388.0 [facility] [place] Comment on above: Performed By: #### U JENNIFER, FERR, CBC, FES, ANEU, RFP, ADIFF, GFR, VIDH ####[place] [address]#### PTH, SPE ####[place] [address] FESon 02-20-2023 Iron [Mass/Vol] 60 ug/dL Low 65-175 [facility] ([place] Comment on above: Performed By: #### U JENNIFER, FERR, CBC, FES, ANEU, RFP, ADIFF, GFR, VIDH ####[place] [address]#### PTH, SPE ####[place] [address] Iron Sat 17 % Normal [facility] ([place] Comment on above: Performed By: #### U JENNIFER, FERR, CBC, FES, ANEU, RFP, ADIFF, GFR, VIDH ####[place] [address]#### PTH, SPE ####[place] [address] TIBC 349 mcg/dL Normal 250-450 [facility] ([place] Comment on above: Performed By: #### U JENNIFER, FERR, CBC, FES, ANEU, RFP, ADIFF, GFR, VIDH ####[place] [address]#### PTH, SPE ####[place] [address] LABORATORYOrdered By: SYSTEM SYSTEM on 02-20-2023 25-hydroxyvitamin [...] 02-20-2023 PTH, Intact 55.0 pg/mL Normal 18.5-88.0 [facility] ([place] Comment on above: Performed By: #### U JENNIFER, FERR, CBC, FES, ANEU, RFP, ADIFF, GFR, VIDH ####[address] [place], [place] [address]#### PTH, SPE ####[address] [address] RFPon 02-20-2023 Albumin Level 3.6 G/dL Normal 3.4-4.8 [facility] ([place] Comment on above: Performed By: #### U JENNIFER, FERR, CBC, FES, ANEU, RFP, ADIFF, GFR, VIDH ####[place] [address]#### PTH, SPE ####[address] [address] BUN/Creatinine Ratio 39 ratio High 7-27 [facility] ([place] Comment on above: Performed By: #### U JENNIFER, FERR, CBC, FES, ANEU, RFP, ADIFF, GFR, VIDH ####[place] [address]#### PTH, SPE ####[address] [address] Calcium [Mass/Vol] 10.5 mg/dL High 8.4-10.2 [facility] ([place]) Comment on above: Performed By: #### U JENNIFER, FERR, CBC, FES, ANEU, RFP, ADIFF, GFR, VIDH ####[place] [address]#### PTH, SPE ####[address] [address] Chloride [Moles/Vol] 103 mmol/L Normal 98-107 [facility] ([place] Comment on above: Performed By: #### U JENNIFER, FERR, CBC, FES, ANEU, RFP, ADIFF, GFR, VIDH ####[place] [address]#### PTH, SPE ####[place] [address] CO2 [Moles/Vol] 27 mmol/L Normal 23-31 [facility] ([place] Comment on above: Performed By: #### U JENNIFER, FERR, CBC, FES, ANEU, RFP, ADIFF, GFR, VIDH ####[place] [address]#### PTH, SPE ####[address] [address] Creatinine [Mass/Vol] 2.70 mg/dL High 0.70-1.30 [facility] ([place]) Comment on above: Performed By: #### U JENNIFER, FERR, CBC, FES, ANEU, RFP, ADIFF, GFR, VIDH ####[address] [address]#### PTH, SPE ####[address] [address] Electrolyte Balance 6.0 mEq/L Normal 4.0-15.0 [facility] [place] Comment on above: Performed By: #### U JENNIFER, FERR, CBC, FES, ANEU, RFP, ADIFF, GFR, VIDH ####[place] [address]#### PTH, SPE ####[address] [address] Glucose [Mass/Vol] 187 mg/dL High 83-110 [facility] ([place] Comment on above: Performed By: #### U JENNIFER, FERR, CBC, FES, ANEU, RFP, ADIFF, GFR, VIDH ####[place] [address]#### PTH, SPE ####[address] [address] Phosphate [Mass/Vol] 4.3 mg/dL High 2.3-4.1 [facility] ([place] Comment on above: Performed By: #### U JENNIFER, FERR, CBC, FES, ANEU, RFP, ADIFF, GFR, VIDH ####[place] [address]#### PTH, SPE ####[address] [address] Potassium [Moles/Vol] 3.9 mmol/L Normal 3.5-5.1 [facility] ([place]) Comment on above: Performed By: #### U JENNIFER, FERR, CBC, FES, ANEU, RFP, ADIFF, GFR, VIDH ####[place] [address]#### PTH, SPE ####[place] [address] Sodium [Moles/Vol] 136 mmol/L Normal 136-145 [facility] ([place] Comment on above: Performed By: #### U JENNIFER, FERR, CBC, FES, ANEU, RFP, ADIFF, GFR, VIDH ####[place] [address]#### PTH, SPE ####[place] [address] Urea nitrogen [Mass/Vol] 105 mg/dL High 7-18 [facility] ([place] Comment on above: Performed By: #### U JENNFIER, FERR, CBC, FES, ANEU, RFP, ADIFF, GFR, VIDH ####[place] [address]#### PTH, SPE ####[place] [address] SPEon 02-20-2023 Total Protein 7.0 G/dL Normal 5.7-8.2 [facility] ([place] Comment on above: Result Comment: No te - New Reference Range in effect 19 Performed By: #### U JENNIFER, FERR, CBC, FES, ANEU, RFP, ADIFF, GFR, VIDH ####[place] [address]#### PTH, SPE ####[place] [address] URICon 02-20-2023 Uric Acid Lvl 10.9 mg/dL High 3.5-7.2 [facility] ([place] Comment on above: Performed By: #### U JENNIFER, FERR, CBC, FES, ANEU, RFP, ADIFF, GFR, VIDH ####[place] [address]#### PTH, SPE ####[place] [address] VIDHon 02-20-2023 Vit. D 25-Hydroxy 47.5 ng/mL Normal [facility] ([place]) Comment on above: Result Comment: Inte rpretive Values Based on Total 25(OH) Vitamin D:Deficient <20 ng/mLInsufficient 20 - <30 ng/mLSufficient 30-100 ng/mL Performed By: #### U JENNIFER, FERR, CBC, FES, ANEU, RFP, ADIFF, GFR, VIDH ####[address] [place], [place] [address]#### PTH, SPE ####[address] [place] [address] Absolute lymphocyte countOrd ered By: Anthony Sosa on 02-15-2023 Lymphocytes Auto (Unsp spec) [#/Vol] 0.88 10*3/uL 0.83-4.51 [facility] Basophil percentageOrdered B y: Anthony Sosa on 02-15-2023 Basophils/100 WBC (Bld) 0.1 % 0-1 [facility] Eosinophils/100 WBC (Bld) 0.2 % 0-5 [facility] Neutrophils (Bld) [#/Vol] 7.7 10*3/uL 2.0-7.7 [facility] Neutrophils/100 WBC (Bld) 83.7 % 47-70 [facility] WBC (Bld) [#/Vol] 9.2 10*3/uL 4.4-11.0 [facility] Blood erythrocytes count (nu mber/volume)Ordered By: Anthony Sosa on 02-15-2023 RBC (Bld) [#/Vol] 2.97 10*6/uL 4.6-6.2 [facility] er [facility] Blood hemoglobin measurement (mass/volume)Ordered By: Anthony Sosa on 02-15-2023 Hemoglobin (Bld) [Mass/Vol] 7.9 g/dL 13.0-16.5 [facility] Blood lymphocytes/100 leukoc ytesOrdered By: Anthony Sosa on 02-15-2023 Lymphocytes/100 WBC (Bld) 9.6 % 19-41 [facility] Blood monocytes/100 leukocyt esOrdered By: Anthony Sosa on 02-15-2023 Monocytes/100 WBC (Bld) 6.2 % 0-10 [facility] Blood platelet mean volumeOr dered By: Anthony Sosa on 02-15-2023 Platelet mean volume (Bld) [Entitic vol] 11.6 fL 6.2-12.0 [facility] Determination of erythrocyte mean corpuscular volume (MCV)Ordered By: Anthony Sosa on 02-15-2023 MCV (RBC) [Entitic vol] 87.2 fL 80-94 [facility] Glucose Glucometer (BldC) [M ass/Vol]Ordered By: Anthony Sosa on 02-15-2023 Glucose [Mass/Vol] 151 mg/dL 74-106 [facility] Comment on above: MANAGEMENT OF PATIEN T CARE PER NURSING PROTOCOL Hematocrit Auto (Bld) [Volum e fraction]Ordered By: Anthony Sosa on 02-15-2023 Hematocrit (Bld) [Volume fraction] 25.9 % 40-54 [facility] Iron measurement (mass/mass) Ordered By: Anthony Sosa on 02-15-2023 Iron (Unsp spec) [Mass/Mass] 105 ug/dL 65-175 [facility] Laboratory - Hematology and Cell countsOrdered By: Anthony Sosa on 02-15-2023 Erythrocyte distribution width (RBC) [Entitic vol] 46.3 fL 35.1-43.9 [facility] Erythrocyte distribution width (RBC) [Ratio] 14.6 % 11.6-14.6 [facility] Immature granulocytes/100 WBC (Bld) 0.200 % 0.0-0.9 [facility] Comment on above: IG% - Immature Granu locytes (promyelocytes, myelocytes and metamyelocytes) > 1% indicates that a LEFT SHIFT is Present. MCH (RBC) [Entitic mass] 26.6 pg 27.0-32.0 [facility] Nucleated RBC/100 WBC (Bld) [Ratio] 0 % 0-5 [facility] MCHC Auto (RBC) [Mass/Vol]Or dered By: Anthony Sosa on 02-15-2023 MCHC (RBC) [Mass/Vol] 30.5 g/dL 32-36 [facility] No Panel InformationOrdered By: Anthony Sosa on 02-15-2023 Total Iron Binding Capacity 315 ug/dL 250-450 [facility] Platelets bldOrdered By: Nimco Sosa on 02-15-2023 Platelets (Bld) [#/Vol] 128 10*3/uL 150-450 [facility] Serum or plasma ferritin latricia surement (mass/volume)Ordered By: Anthony Sosa on 02-15-2023 Ferritin [Mass/Vol] 15 ng/mL 26-388 [facility] Serum or plasma iron saturat ion measurement (mass fraction)Ordered By: Anthony Sosa on 02-15-2023 Iron saturation [Mass fraction] 33.3 % 15.0-55.0 [facility] Basophil percentageOrdered B y: Erika Amin on 02-14-2023 Basophil percentage 3.5 mg/dL 2.5-4.9 [facility] Bilirubin [Mass/Vol] 0.40 mg/dL 0.20-1.00 [facility] Comment on above: For patients on eltr ombopag therapy, use of Dimension [place] TBIL is not recommended. Chloride [Moles/Vol] 110 mmol/L 98-107 [facility] Glucose [Mass/Vol] 290 mg/dL 74-106 [facility] Comment on above: Glucose result great er than or equal to 200 mg/dLsuggests DIABETES MELLITUS per A.D.A. criteria. Lactate [Moles/Vol] 1.4 mmol/L 0.4-2.0 [facility] Potassium [Moles/Vol] 4.9 mmol/L 3.5-5.1 [facility] Protein [Mass/Vol] 6.2 g/dL 6.4-8.2 [facility] Sodium [Moles/Vol] 142 mmol/L 136-145 [facility] Blood manual differential co mment interpretation (narrative result)Ordered By: Erika Amin on 02-14-2023 Manual differential comment Ric (Bld) [Interp] SCANNED [facility] Comment on above: LYMPHOPENIA NOTED Laboratory - Chemistry and C hemistry - challengeOrdered By: Erika Amin on 02-14-2023 ALP [Catalytic activity/Vol] 55 U/L 45-117 [facility] ALT [Catalytic activity/Vol] 30 U/L 16-61 [facility] CO2 [Moles/Vol] 27.0 mmol/L 21.0-32.0 [facility] Globulin (S) [Mass/Vol] 3.4 g/dL 2.2-4.2 [facility] Magnesium [Mass/Vol] 2.0 mg/dL 1.6-2.6 [facility] Urea nitrogen/Creatinine [Mass ratio] 33.8 mg/mg 10-20 [facility] Laboratory - CoagulationOrde red By: Erika Amin on 02-14-2023 aPTT Coag (Bld) [Time] 246.2 s 24.1-36.2 [facility] Comment on above: CRITICAL VALUE VERIF IED. CALLED TO ICU [id number]/06/23 0736 Eli Ellis.RESULTS READ BACK BY SAME . No Panel InformationOrdered By: Erika Amin on 02-14-2023 Estimated Creatinine Clearance Calc 15.96 ml/min [facility] Estimated GFR (MDRD) Amer 25 mL/min >60 [facility] Comment on above: GFR Calc Estimated GFR (MDRD) Non-Af Amer 21 mL/min >60 [facility] Comment on above: Non- GFR Calc Thyroid Stimulating Hormone (TSH) 1.06 uIU/mL 0.358-3.74 [facility] D-Dimer Quantitative (PE/DVT) 0.55 FEU/ug/m 0.27-0.49 [facility] Comment on above: D-Dimer ELEVATED (>0 .49): Additional studies and clinicalassessments are indicated to conclude diagnosis of:Deep Vein Thrombosis (DVT) or Pulmonary Embolism (PE)CRITICAL VALUE VERIFIED. CALLED TO Maddie KOO RN ICU02/14/23 0046 Vitaliy Sharma.RESULTS READ BACK BY SAME. Serum or plasma albumin elmira urement (mass/volume)Ordered By: Erika Amin on 02-14-2023 Albumin [Mass/Vol] 2.8 g/dL 3.2-5.0 [facility] Serum or plasma albumin/glob ulin mass ratioOrdered By: Erika Amin on 02-14-2023 Albumin/Globulin [Mass ratio] 0.8 {ratio} 0.9-2.4 [facility] Serum or plasma calcium elmira urement (mass/volume)Ordered By: Erika Amin on 02-14-2023 Calcium [Mass/Vol] 8.1 mg/dL 8.5-10.1 [facility] Serum or plasma creatinine m easurement (mass/volume)Ordered By: Erika Amin on 02-14-2023 Creatinine [Mass/Vol] 3.05 mg/dL 0.70-1.30 [facility] Comment on above: The validity of the calculated GFR & GFRAA in patients over 70 years has not been determined. Clinical correlation is essential. Serum or plasma urea nitroge n measurement (mass/volume)Ordered By: Erika Amin on 02-14-2023 Urea nitrogen [Mass/Vol] 103 mg/dL 7-18 [facility] Comment on above: Critical Result(s) C alled at: 05:42:36 02/14/2023 by: VITALIY Avila RN ICU. Results read back by same. Thin prep Papanicolaou smear with manual screeningOrdered By: Erika Amin on 02-14-2023 Thin prep Papanicolaou smear with manual screening 11 U/L 15-37 [facility] Thin prep Papanicolaou smear with manual screening 5 5-15 [facility] Absolute lymphocyte countOrd ered By: Jr Thomas on 02-13-2023 Lymphocytes Auto (Unsp spec) [#/Vol] 1.03 10*3/uL 0.83-4.51 [facility] Basophil percentageOrdered B y: Jr Thomas on 02-13-2023 Basophil percentage 0 SEEN /hpf 0-5 [facility] Basophils/100 WBC (Bld) 0.1 % 0-1 [facility] Chloride [Moles/Vol] 108 mmol/L 98-107 [facility] Eosinophils/100 WBC (Bld) 3.2 % 0-5 [facility] Glucose [Mass/Vol] 258 mg/dL 74-106 [facility] Comment on above: Glucose result great er than or equal to 200 mg/dLsuggests DIABETES MELLITUS per A.D.A. criteria. Neutrophils (Bld) [#/Vol] 17.2 10*3/uL 2.0-7.7 [facility] Neutrophils/100 WBC (Bld) 83.1 % 47-70 [facility] Potassium [Moles/Vol] 4.0 mmol/L 3.5-5.1 [facility] Sodium [Moles/Vol] 143 mmol/L 136-145 [facility] WBC (Bld) [#/Vol] 20.7 10*3/uL 4.4-11.0 [facility] Bilirubin Test strip Ql (U)O rdered By: Jr Thomas on 02-13-2023 Bilirubin Ql (U) Negative Negative [facility] Blood erythrocytes count (nu mber/volume)Ordered By: Jr Thomas on 02-13-2023 RBC (Bld) [#/Vol] 3.48 10*6/uL 4.6-6.2 [facility] Blood hemoglobin measurement (mass/volume)Ordered By: Jr Thomas on 02-13-2023 Hemoglobin (Bld) [Mass/Vol] 9.3 g/dL 13.0-16.5 [facility] Blood lymphocytes/100 leukoc ytesOrdered By: Jr Thomas on 02-13-2023 Lymphocytes/100 WBC (Bld) 5.0 % 19-41 [facility] Blood manual differential co mment interpretation (narrative result)Ordered By: Jr Thomas on 02-13-2023 Manual differential comment Ric (Bld) [Interp] SCANNED [facility] Comment on above: AUTO DIFF [place] Blood monocytes/100 leukocyt esOrdered By: Jr Thomas on 02-13-2023 Monocytes/100 WBC (Bld) 8.3 % 0-10 [facility] Blood platelet mean volumeOr dered By: Jr Thomas on 02-13-2023 Platelet mean volume (Bld) [Entitic vol] 10.9 fL 6.2-12.0 [facility] Determination of erythrocyte mean corpuscular volume (MCV)Ordered By: Jr Thomas on 02-13-2023 MCV (RBC) [Entitic vol] 87.4 fL 80-94 [facility] Hematocrit Auto (Bld) [Volum e fraction]Ordered By: Jr Thomas on 02-13-2023 Hematocrit (Bld) [Volume fraction] 30.4 % 40-54 [facility] Ketones Test strip Ql (U)Ord ered By: Jr Thomas on 02-13-2023 Ketones Ql (U) Negative Negative [facility] - Chemistry and C hemistry - challengeOrdered By: Jr Thomas on 02-13-2023 CO2 [Moles/Vol] 29.0 mmol/L 21.0-32.0 [facility] Natriuretic peptide B (Bld) [Mass/Vol] 43.2 pg/mL 0-100 [facility] Urea nitrogen/Creatinine [Mass ratio] 32.2 mg/mg 10-20 [facility] - Hematology and Cell countsOrdered By: Jr Thomas on 02-13-2023 Erythrocyte distribution width (RBC) [Entitic vol] 47.8 fL 35.1-43.9 [facility] Erythrocyte distribution width (RBC) [Ratio] 15.0 % 11.6-14.6 [facility] Immature granulocytes/100 WBC (Bld) 0.300 % 0.0-0.9 [facility] Comment on above: IG% - Immature Granu locytes (promyelocytes, myelocytes and metamyelocytes) > 1% indicates that a LEFT SHIFT is Present. MCH (RBC) [Entitic mass] 26.7 pg 27.0-32.0 [facility] Nucleated RBC/100 WBC (Bld) [Ratio] 0 % 0-5 [facility] - Microbiology an d Antimicrobial susceptibilityOrdered By: Jr Thomas on 02-13-2023 Bacteria identified Cx Nom (Bld) No growth in 5 days. [facility] Bacteria identified Cx Nom (Bld) Staphylococcus epidermidis [facility] MCHC Auto (RBC) [Mass/Vol]Or dered By: Jr Thomas on 02-13-2023 MCHC (RBC) [Mass/Vol] 30.6 g/dL 32-36 [facility] Mucus LM Ql (Urine sed)Order ed By: Jr Thomas on 02-13-2023 Mucus Ql (Urine sed) 0 SEEN /hpf [facility] Nitrite Test strip Ql (U)Ord ered By: Jr Thomas on 02-13-2023 Nitrite Ql (U) Negative Negative [facility] No Panel InformationOrdered By: Jr Thomas on 02-13-2023 Bacteria Detection (PCR) Staphylococcus epidermidis [facility] Estimated Creatinine Clearance Calc 16.18 ml/min [facility] Estimated GFR (MDRD) Amer 26 mL/min >60 [facility] Comment on above: GFR Calc Estimated GFR (MDRD) Non-Af Amer 21 mL/min >60 [facility] Comment on above: Non- GFR Calc Troponin I High Sensitivity 46 pg/mL 3.0-78.0 [facility] Comment on above: Please Note: New Arti t Units and Gender Specific Reference Ranges. For more information see Policy Stat Procedure [place] High Sensitivity Troponin (TNIH) and attachments. Platelets bldOrdered By: Stan Thomas on 02-13-2023 Platelets (Bld) [#/Vol] 207 10*3/uL 150-450 [facility] Protein Test strip Ql (U)Ord ered By: Jr Thomas on 02-13-2023 Protein Ql (U) 30 mg/dl Negative [facility] Review by pathologistOrdered By: Jr Thomas on 02-13-2023 Pathologist review Ric (Unsp spec) [Interp] Elidia orr [facility] Pathologist review Ric (Unsp spec) [Interp] Reviewed [facility] Comment on above: Previous reported re sult: Elidia orr Edited by: OSCAR on 02/15/23:1121Neutrophilic leukocytosis.Normocytic anemia.Clinical correlation necessary.Daniel Romero M.D. 02/15/23 AMENDED REPORT 02/15/23 1121 PATH REV previously reported as: Elidia orr Serum or plasma calcium elmira urement (mass/volume)Ordered By: Jr Thomas on 02-13-2023 Calcium [Mass/Vol] 9.6 mg/dL 8.5-10.1 [facility] Serum or plasma creatinine m easurement (mass/volume)Ordered By: Jr Thomas on 02-13-2023 Creatinine [Mass/Vol] 3.01 mg/dL 0.70-1.30 [facility] Comment on above: The validity of the calculated GFR & GFRAA in patients over 70 years has not been determined. Clinical correlation is essential. Serum or plasma urea nitroge n measurement (mass/volume)Ordered By: Jr Thomas on 02-13-2023 Urea nitrogen [Mass/Vol] 97 mg/dL 7-18 [facility] Squamous epithelial cells de tection in urine sediment by light microscopyOrdered By: Jr Thomas on 02-13-2023 Epithelial cells.squamous LM Ql (Urine sed) 0 SEEN /hpf 0-5 [facility] Thin prep Papanicolaou smear with manual screeningOrdered By: Jr Thomas on 02-13-2023 Thin prep Papanicolaou smear with manual screening 6 5-15 [facility] Urine blood detectionOrdered By: Jr Thomas on 02-13-2023 RBC Ql (U) 10 /ul Negative [facility] RBC Ql (U) 0 SEEN /hpf 0-5 [facility] Urine clarityOrdered By: Stan Thomas on 02-13-2023 Clarity (U) Clear Clear [facility] Urine color determinationOrd ered By: Jr Thomas on 02-13-2023 Color (U) Yellow Yellow [facility] Urine glucose detectionOrder ed By: Jr Thomas on 02-13-2023 Glucose Ql (U) 1000 mg/dl Normal [facility] Urine leukocyte esterase det ection by dipstickOrdered By: Jr Thomas on 02-13-2023 Leukocyte esterase Test strip Ql (U) Negative Negative [facility] Urine pHOrdered By: Jr moreira on 02-13-2023 pH (U) 5.0 [pH] 5.0 - 8.0 [facility] Urine sediment bacteria coun t by microscopy (number/high power field)Ordered By: Jr Thomas on 02-13-2023 Bacteria LM.HPF (Urine sed) [#/Area] 0 /[HPF] None Seen [facility] Urine specific gravity measu rementOrdered By: Jr Thomas on 02-13-2023 Specific gravity (U) [Rel density] 1.015 1.002-1.030 [facility] Urobilinogen Auto test strip Ql (U)Ordered By: Jr Thomas on 02-13-2023 Urobilinogen Ql (U) Normal mg/dl Normal [facility] Absolute lymphocyte countOrd ered By: Dustyjonathan Yan on 02-08-2023 Lymphocytes Auto (Unsp spec) [#/Vol] 1.00 10*3/uL 0.83-4.51 [facility] Basophil percentageOrdered B y: Dusty Yan on 02-08-2023 Basophils/100 WBC (Bld) 0.4 % 0-1 [facility] Chloride [Moles/Vol] 108 mmol/L 98-107 [facility] Eosinophils/100 WBC (Bld) 5.7 % 0-5 [facility] Glucose [Mass/Vol] 120 mg/dL 74-106 [facility] Comment on above: Fasting Glucose resu lt from 100 to 125 mg/dL suggests IMPAIRED HOMEOSTASIS per A.D.A. criteria. Neutrophils (Bld) [#/Vol] 3.1 10*3/uL 2.0-7.7 [facility] Neutrophils/100 WBC (Bld) 65.4 % 47-70 [facility] Potassium [Moles/Vol] 4.8 mmol/L 3.5-5.1 [facility] Sodium [Moles/Vol] 143 mmol/L 136-145 [facility] WBC (Bld) [#/Vol] 4.7 10*3/uL 4.4-11.0 [facility] Blood erythrocytes count (nu mber/volume)Ordered By: Dusty Yan on 02-08-2023 RBC (Bld) [#/Vol] 2.79 10*6/uL 4.6-6.2 [facility] Blood hemoglobin measurement (mass/volume)Ordered By: Dusty Yan on 02-08-2023 Hemoglobin (Bld) [Mass/Vol] 7.3 g/dL 13.0-16.5 [facility] Blood lymphocytes/100 leukoc ytesOrdered By: Dusty Yan on 02-08-2023 Lymphocytes/100 WBC (Bld) 21.1 % 19-41 [facility] Blood monocytes/100 leukocyt esOrdered By: Dusty Yan on 02-08-2023 Monocytes/100 WBC (Bld) 7.2 % 0-10 [facility] Blood platelet mean volumeOr dered By: Dusty Yan on 02-08-2023 Platelet mean volume (Bld) [Entitic vol] 10.7 fL 6.2-12.0 [facility] Determination of erythrocyte mean corpuscular volume (MCV)Ordered By: Dusty Yan on 02-08-2023 MCV (RBC) [Entitic vol] 86.4 fL 80-94 [facility] Hematocrit Auto (Bld) [Volum e fraction]Ordered By: Dusty Yan on 02-08-2023 Hematocrit (Bld) [Volume fraction] 24.1 % 40-54 [facility] - Chemistry and C hemistry - challengeOrdered By: Dusty Yan on 02-08-2023 CO2 [Moles/Vol] 31.0 mmol/L 21.0-32.0 [facility] Urea nitrogen/Creatinine [Mass ratio] 33.7 mg/mg 10-20 [facility] - Hematology and Cell countsOrdered By: Dusty Yan on 02-08-2023 Erythrocyte distribution width (RBC) [Entitic vol] 46.3 fL 35.1-43.9 [facility] Erythrocyte distribution width (RBC) [Ratio] 14.9 % 11.6-14.6 [facility] Immature granulocytes/100 WBC (Bld) 0.200 % 0.0-0.9 [facility] Comment on above: IG% - Immature Granu locytes (promyelocytes, myelocytes and metamyelocytes) > 1% indicates that a LEFT SHIFT is Present. MCH (RBC) [Entitic mass] 26.2 pg 27.0-32.0 [facility] Nucleated RBC/100 WBC (Bld) [Ratio] 0 % 0-5 [facility] MCHC Auto (RBC) [Mass/Vol]Or dered By: Dusty Yan on 02-08-2023 MCHC (RBC) [Mass/Vol] 30.3 g/dL 32-36 [facility] No Panel InformationOrdered By: Dusty Yan on 02-08-2023 Estimated Creatinine Clearance Calc 16.91 ml/min [facility] Estimated GFR (MDRD) Amer 27 mL/min >60 [facility] Comment on above: GFR Calc Estimated GFR (MDRD) Non-Af Amer 22 mL/min >60 [facility] Comment on above: Non- GFR Calc Platelets bldOrdered By: Dusty Yan on 02-08-2023 Platelets (Bld) [#/Vol] 120 10*3/uL 150-450 [facility] Serum or plasma calcium elmira urement (mass/volume)Ordered By: Dusty Yan on 02-08-2023 Calcium [Mass/Vol] 9.3 mg/dL 8.5-10.1 [facility] Serum or plasma creatinine m easurement (mass/volume)Ordered By: Dusty Yan on 02-08-2023 Creatinine [Mass/Vol] 2.88 mg/dL 0.70-1.30 [facility] Comment on above: The validity of the calculated GFR & GFRAA in patients over 70 years has not been determined. Clinical correlation is essential. Serum or plasma urea nitroge n measurement (mass/volume)Ordered By: Dusty Yan on 02-08-2023 Urea nitrogen [Mass/Vol] 97 mg/dL 7-18 [facility] Thin prep Papanicolaou smear with manual screeningOrdered By: Dusty Yan on 02-08-2023 Thin prep Papanicolaou smear with manual screening 4 -15 [facility] .Auto Diffon 02-07-2023 Basophil, Absolute 0.0 10 3/mcL Normal 0.0-0.2 [facility] ([place] Comment on above: Performed By: #### G FR, CBC, ANEU, ADIFF, BMP ####[address] [place], [place] [address] Basophils/100 WBC (Bld) 0.8 % Normal 0.0-2.5 [facility] ([place]) Comment on above: Performed By: #### G FR, CBC, ANEU, ADIFF, BMP ####[address] [place], [place] [address] Eosinophil, Absolute 0.3 10 3/mcL Normal 0.0-0.4 [facility] ([place] Comment on above: Performed By: #### G FR, CBC, ANEU, ADIFF, BMP ####[address] [place], [place] [address] Eosinophils/100 WBC (Bld) 4.0 % Normal 0.0-7.0 [facility] ([place] Comment on above: Performed By: #### G FR, CBC, ANEU, ADIFF, BMP ####[address] [place], [place] [address] Lymphocyte, Absolute 1.2 10 3/mcL Normal 0.8-3.9 [facility] ([place] Comment on above: Performed By: #### G FR, CBC, ANEU, ADIFF, BMP ####[address] [place], [place] [address] Lymphocytes/100 WBC (Bld) 18.5 % Normal 10.0-50.0 [facility] ([place] Comment on above: Performed By: #### G FR, CBC, ANEU, ADIFF, BMP ####[address] [place], [place] [address] Monocyte, Absolute 0.4 10 3/mcL Normal 0.2-1.0 [facility] ([place] Comment on above: Performed By: #### G FR, CBC, ANEU, ADIFF, BMP ####[address] [place], [place] [address] Monocytes/100 WBC (Bld) 6.3 % Normal 1.7-13.0 [facility] ([place] Comment on above: Performed By: #### G FR, CBC, ANEU, ADIFF, BMP ####[address] [place], [place] [address] Neutrophils/100 WBC (Bld) 70.4 % Normal 37.0-80.0 [facility] ([place] Comment on above: Performed By: #### G FR, CBC, ANEU, ADIFF, BMP ####[address] [place], [place] [address] .GFRon 02-07-2023 GFR 27 ml/min/1.73sqm Normal [facility] ([place] Comment on above: Result Comment: GFR Population [...] FR, CBC, ANEU, ADIFF, BMP ####[address] [place], [place] [address] GFR Non- 22 ml/min/1.73sqm Normal [facility] ([place] Comment on above: Result Comment: GFR Population [...] FR, CBC, ANEU, ADIFF, BMP ####[address] [place], [place] [address] .NEUABSon 02-07-2023 Neutrophil, Absolute 4.6 10 3/mcL Normal 2.9-6.2 [facility] ([place] Comment on above: Performed By: #### Jerrell FR, CBC, ANEU, ADIFF, BMP ####[address] [place], [place] [address] BMPon 02-07-2023 BUN/Creatinine Ratio 36 ratio High 7-27 [facility] ([place] Comment on above: Performed By: #### Jerrell FR, CBC, ANEU, ADIFF, BMP ####[address] [place], [place] [address] Calcium [Mass/Vol] 9.0 mg/dL Normal 8.4-10.2 [facility] ([place] Comment on above: Performed By: #### Jerrell FR, CBC, ANEU, ADIFF, BMP ####[address] [place], [place] [address] Chloride [Moles/Vol] 106 mmol/L Normal 98-107 [facility] ([place] Comment on above: Performed By: #### Jerrell FR, CBC, ANEU, ADIFF, BMP ####[address] [place], [place] [address] CO2 [Moles/Vol] 30 mmol/L Normal 23-31 [facility] ([place] Comment on above: Performed By: #### G FR, CBC, ANEU, ADIFF, BMP ####[address] [place], [place] [address] Creatinine [Mass/Vol] 2.77 mg/dL High 0.70-1.30 [facility] ([place] Comment on above: Performed By: #### G FR, CBC, ANEU, ADIFF, BMP ####[address] [place], [place] [address] Electrolyte Balance 7.0 mEq/L Normal 4.0-15.0 [facility] [place] Comment on above: Performed By: #### G FR, CBC, ANEU, ADIFF, BMP ####[address] [place], [place] [address] Glucose [Mass/Vol] 134 mg/dL High 83-110 [facility] ([place] Comment on above: Performed By: #### G FR, CBC, ANEU, ADIFF, BMP ####[address] [place], [place] [address] Potassium [Moles/Vol] 5.2 mmol/L High 3.5-5.1 [facility] ([place] Comment on above: Performed By: #### G FR, CBC, ANEU, ADIFF, BMP ####[address] [place], [place] [address] Sodium [Moles/Vol] 143 mmol/L Normal 136-145 [facility] ([place] Comment on above: Performed By: #### G FR, CBC, ANEU, ADIFF, BMP ####[address] [place], [place] [address] Urea nitrogen [Mass/Vol] 99 mg/dL High 7-18 [facility] [place] Comment on above: Performed By: #### G FR, CBC, ANEU, ADIFF, BMP ####[address] [place], [place] [address] CBCon 02-07-2023 Erythrocyte distribution width (RBC) [Ratio] 15.8 % High 11.5-14.5 [facility] ([place] Comment on above: Performed By: #### G FR, CBC, ANEU, ADIFF, BMP ####[address] [place], [place] [address] Hematocrit (Bld) [Volume fraction] 24.2 % Low 42.0-52.0 [facility] [place] Comment on above: Performed By: #### G FR, CBC, ANEU, ADIFF, BMP ####[address] [place], [place] [address] Hgb 7.8 G/dL Low 14.0-18.0 [facility] ([place] Comment on above: Performed By: #### Jerrell FR, CBC, ANEU, ADIFF, BMP ####[address] [place], [place] [address] MCH (RBC) [Entitic mass] 26.6 pg Low 27.0-31.2 [facility] [place] Comment on above: Performed By: #### G FR, CBC, ANEU, ADIFF, BMP ####[address] [place], [place] [address] MCHC 32.0 G/dL Normal 31.8-35.4 [facility] ([place] Comment on above: Performed By: #### G FR, CBC, ANEU, ADIFF, BMP ####[address] [place], [place] [address] MCV (RBC) [Entitic vol] 83.0 fL Normal 80.0-94.0 [facility] ([place] Comment on above: Performed By: #### Jerrell FR, CBC, ANEU, ADIFF, BMP ####[address] [place], [place] [address] Platelet 128 10 3/mcL Low 130-400 [facility] [place] Comment on above: Performed By: #### G FR, CBC, ANEU, ADIFF, BMP ####[address] [place], [place] [address] Platelet mean volume (Bld) [Entitic vol] 9.0 fL Normal 7.4-10.4 [facility] [place] Comment on above: Performed By: #### G FR, CBC, ANEU, ADIFF, BMP ####[address] [place], [place] [address] RBC 2.92 10 6/mcL Low 4.04-6.13 [facility] ([place] Comment on above: Performed By: #### G FR, CBC, ANEU, ADIFF, BMP ####[address] [place], [place] [address] WBC 6.5 10 3/mcL Normal 4.6-10.8 [facility] [place] Comment on above: Performed By: #### G FR, CBC, ANEU, ADDEE, BMP ####[address] [place], [place] [address] LABORATORYOrdered By: SYSTEM SYSTEM on 02-07-2023 Basophil, [...] SS .GFRon 02-02-2023 GFR 27 ml/min/1.73sqm Normal [facility] ([place] Comment on above: Result Comment: GFR Population [...] Performed By: #### C MP, GFR ####[address] [place], [place] [address] GFR Non- 22 ml/min/1.73sqm Normal [facility] ([place] Comment on above: Result Comment: GFR Population [...] Performed By: #### C MP, GFR ####[address] [place], [place] [address] CMPon 02-02-2023 Albumin Level 3.4 G/dL Normal 3.4-4.8 [facility] ([place] Comment on above: Performed By: #### C MP, GFR ####[address] [place], [place] [address] Albumin/Globulin [Mass ratio] 0.9 {ratio} Low 1.1-2.5 [facility] ([place] Comment on above: Performed By: #### C MP, GFR ####[address] [place], [place] [address] ALP [Catalytic activity/Vol] 71 U/L Normal 40-135 [facility] ([place] Comment on above: Performed By: #### C MP, GFR ####[address] [place], [place] [address] ALT [Catalytic activity/Vol] 27 U/L Normal 16-63 [facility] ([place] Comment on above: Performed By: #### C MP, GFR ####[address] [place], [place] [address] AST [Catalytic activity/Vol] 17 U/L Normal 10-40 [facility] ([place] Comment on above: Performed By: #### C MP, GFR ####[address] [place], [place] [address] Bili Total 0.3 mg/dL Normal 0.2-1.0 [facility] ([place] Comment on above: Result Comment: Use of this assay is not recommended for patients undergoing treatment with eltrombopag due to the potential for falsely elevated results. Performed By: #### C MP, GFR ####[address] [place], [place] [address] BUN/Creatinine Ratio 34 ratio High 7-27 [facility] ([place] Comment on above: Performed By: #### C MP, GFR ####[address] [place], [place] [address] Calcium [Mass/Vol] 8.8 mg/dL Normal 8.4-10.2 [facility] ([place] Comment on above: Performed By: #### C MP, GFR ####[address] [place], [place] [address] Chloride [Moles/Vol] 106 mmol/L Normal 98-107 [facility] ([place] Comment on above: Performed By: #### C MP, GFR ####[address] [place], [place] [address] CO2 [Moles/Vol] 28 mmol/L Normal 23-31 [facility] [place] Comment on above: Performed By: #### C MP, GFR ####[address] [place], [place] [address] Creatinine [Mass/Vol] 2.77 mg/dL High 0.70-1.30 [facility] ([place] Comment on above: Performed By: #### C MP, GFR ####[address] [place], [place] [address] Electrolyte Balance 9.0 mEq/L Normal 4.0-15.0 [facility] [place] Comment on above: Performed By: #### C MP, GFR ####[address] [place], [place] [address] Globulin 3.8 G/dL Normal [facility] ([place] Comment on above: Performed By: #### C MP, GFR ####[address] [place], [place] [address] Glucose [Mass/Vol] 123 mg/dL High 83-110 [facility] ([place] Comment on above: Performed By: #### C MP, GFR ####[address] [place], [place] [address] Potassium [Moles/Vol] 5.2 mmol/L High 3.5-5.1 [facility] ([place] Comment on above: Performed By: #### C MP, GFR ####[address] [place], [place] [address] Sodium [Moles/Vol] 143 mmol/L Normal 136-145 [facility] ([place] Comment on above: Performed By: #### C MP, GFR ####[address] [place], [place] [address] Total Protein 7.2 G/dL Normal 6.4-8.2 [facility] ([place] Comment on above: Performed By: #### C MP, GFR ####[address] [place], [place] [address] Urea nitrogen [Mass/Vol] 94 mg/dL High 7-18 [facility] [place] Comment on above: Performed By: #### C MP, GFR ####[address] [place], [place] [address] LABORATORYOrdered By: Javier Vega on 02-02-2023 Albumin [...] 02-02-2023 U Creatinine 29.0 mg/dL Low 39.0-259.0 [facility] ([place] Comment on above: Performed By: #### M ALBR ####[address] [place], [place] [address] U Microalb 4585 mcg/dL Normal [facility] ([place] Comment on above: Performed By: #### M ALBR ####[address] [place], [place] [address] U Ratio Alb/Cre 158 mcg/mg High 0-30 [facility] ([place] Comment on above: Performed By: #### M ALBR ####[address] [place], [place] [address] .Auto Diffon 01-23-2023 Basophil, Absolute 0.1 10 3/mcL Normal 0.0-0.2 [facility] ([place] Comment on above: Performed By: #### C BC, ANEU, ADIFF, GFR, CMP ####[address] [place], [place] [address] Basophils/100 WBC (Bld) 1.0 % Normal 0.0-2.5 [facility] ([place] Comment on above: Performed By: #### C BC, ANEU, ADIFF, GFR, CMP ####[address] [place], [place] [address] Eosinophil, Absolute 0.3 10 3/mcL Normal 0.0-0.4 [facility] ([place] Comment on above: Performed By: #### C BC, ANEU, ADIFF, GFR, CMP ####[address] [place], [place] [address] Eosinophils/100 WBC (Bld) 4.8 % Normal 0.0-7.0 [facility] [place] Comment on above: Performed By: #### C BC, ANEU, ADIFF, GFR, CMP ####[address] [place], [place] [address] Lymphocyte, Absolute 1.2 10 3/mcL Normal 0.8-3.9 [facility] ([place] Comment on above: Performed By: #### C BC, ANEU, ADIFF, GFR, CMP ####[address] [place], [place] [address] Lymphocytes/100 WBC (Bld) 19.6 % Normal 10.0-50.0 [facility] [place] Comment on above: Performed By: #### C BC, ANEU, ADIFF, GFR, CMP ####[address] [place], [place] [address] Monocyte, Absolute 0.5 10 3/mcL Normal 0.2-1.0 [facility] ([place] Comment on above: Performed By: #### C BC, ANEU, ADIFF, GFR, CMP ####[address] [place], [place] [address] Monocytes/100 WBC (Bld) 8.4 % Normal 1.7-13.0 [facility] ([place]) Comment on above: Performed By: #### C BC, ANEU, ADIFF, GFR, CMP ####[address] [place], [place] [address] Neutrophils/100 WBC (Bld) 66.2 % Normal 37.0-80.0 [facility] ([place]) Comment on above: Performed By: #### C BC, ANEU, ADIFF, GFR, CMP ####[address] [place], [place] [address] .GFRon 01-23-2023 GFR 27 ml/min/1.73sqm Normal [facility] ([place]) Comment on above: Result Comment: GFR [...] C BC, ANEU, ADIFF, GFR, CMP ####[address] [place], [place] [address] GFR Non- 22 ml/min/1.73sqm Normal [facility] ([place]) Comment on above: Result Comment: GFR [...] BC, ANEU, ADIFF, GFR, CMP ####[address] [place], [place] [address] .NEUABSon 01-23-2023 Neutrophil, Absolute 4.2 10 3/mcL Normal 2.9-6.2 [facility] [place] Comment on above: Performed By: #### C BC, ANEU, ADIFF, GFR, CMP ####[address] [place], [place] [address] CBCon 01-23-2023 Erythrocyte distribution width (RBC) [Ratio] 14.9 % High 11.5-14.5 [facility] [place] Comment on above: Performed By: #### C BC, ANEU, ADIFF, GFR, CMP ####[address] [place], [place] [address] Hematocrit (Bld) [Volume fraction] 26.9 % Low 42.0-52.0 [facility] [place] Comment on above: Performed By: #### C BC, ANEU, ADIFF, GFR, CMP ####[address] [place], [place] [address] Hgb 8.7 G/dL Low 14.0-18.0 [facility] ([place] Comment on above: Performed By: #### C BC, ANEU, ADIFF, GFR, CMP ####[address] [place], [place] [address] MCH (RBC) [Entitic mass] 27.1 pg Normal 27.0-31.2 [facility] ([place] Comment on above: Performed By: #### C BC, ANEU, ADIFF, GFR, CMP ####[address] [place], [place] [address] MCHC 32.4 G/dL Normal 31.8-35.4 [facility] [place] Comment on above: Performed By: #### C BC, ANEU, ADIFF, GFR, CMP ####[address] [place], [place] [address] MCV (RBC) [Entitic vol] 83.6 fL Normal 80.0-94.0 [facility] ([place] Comment on above: Performed By: #### C BC, ANEU, ADIFF, GFR, CMP ####[address] [place], [place] [address] Platelet 130 10 3/mcL Normal 130-400 [facility] [place] Comment on above: Performed By: #### C BC, ANEU, ADIFF, GFR, CMP ####[address] [place], [place] [address] Platelet mean volume (Bld) [Entitic vol] 9.0 fL Normal 7.4-10.4 [facility] [place] Comment on above: Performed By: #### C BC, ANEU, ADIFF, GFR, CMP ####[address] [place], [place] [address] RBC 3.22 10 6/mcL Low 4.04-6.13 [facility] [place] Comment on above: Performed By: #### C BC, ANEU, ADIFF, GFR, CMP ####[address] [place], [place] [address] WBC 6.4 10 3/mcL Normal 4.6-10.8 [facility] [place] Comment on above: Performed By: #### C BC, ANEU, ADIFF, GFR, CMP ####[address] [place], [place] [address] CMPon 01-23-2023 Albumin Level 3.7 G/dL Normal 3.4-4.8 [facility] [place] Comment on above: Performed By: #### C BC, ANEU, ADIFF, GFR, CMP ####[address] [place], [place] [address] Albumin/Globulin [Mass ratio] 1.0 {ratio} Low 1.1-2.5 [facility] [place] Comment on above: Performed By: #### C BC, ANEU, ADIFF, GFR, CMP ####[address] [place], [place] [address] ALP [Catalytic activity/Vol] 77 U/L Normal 40-135 [facility] ([place] Comment on above: Performed By: #### C BC, ANEU, ADIFF, GFR, CMP ####[address] [place], [place] [address] ALT [Catalytic activity/Vol] 20 U/L Normal 16-63 [facility] ([place] Comment on above: Performed By: #### C BC, ANEU, ADIFF, GFR, CMP ####[address] [place], [place] [address] AST [Catalytic activity/Vol] 13 U/L Normal 10-40 [facility] ([place] Comment on above: Performed By: #### C BC, ANEU, ADIFF, GFR, CMP ####[address] [place], [place] [address] Bili Total 0.4 mg/dL Normal 0.2-1.0 [facility] ([place] Comment on above: Result Comment: Use of this assay is not recommended for patients undergoing treatment with eltrombopag due to the potential for falsely elevated results. Performed By: #### C BC, ANEU, ADIFF, GFR, CMP ####[address] [place], [place] [address] BUN/Creatinine Ratio 22 ratio Normal 7-27 [facility] [place] Comment on above: Performed By: #### C BC, ANEU, ADIFF, GFR, CMP ####[address] [place], [place] [address] Calcium [Mass/Vol] 9.2 mg/dL Normal 8.4-10.2 [facility] ([place]) Comment on above: Performed By: #### C BC, ANEU, ADIFF, GFR, CMP ####[address] [place], [place] [address] Chloride [Moles/Vol] 105 mmol/L Normal 98-107 [facility] ([place]) Comment on above: Performed By: #### C BC, ANEU, ADIFF, GFR, CMP ####[address] [place], [place] [address] CO2 [Moles/Vol] 30 mmol/L Normal 23-31 [facility] ([place]) Comment on above: Performed By: #### C BC, ANEU, ADIFF, GFR, CMP ####[address] [place], [place] [address] Creatinine [Mass/Vol] 2.76 mg/dL High 0.70-1.30 [facility] ([place]) Comment on above: Performed By: #### C BC, ANEU, ADIFF, GFR, CMP ####[address] [place], [place] [address] Electrolyte Balance 9.0 mEq/L Normal 4.0-15.0 [facility] ([place]) Comment on above: Performed By: #### C BC, ANEU, ADIFF, GFR, CMP ####[address] [place], [place] [address] Globulin 3.7 G/dL Normal [facility] ([place] Comment on above: Performed By: #### C BC, ANEU, ADIFF, GFR, CMP ####[address] [place], [place] [address] Glucose [Mass/Vol] 112 mg/dL High 83-110 [facility] ([place]) Comment on above: Performed By: #### C BC, ANEU, ADIFF, GFR, CMP ####[address] [place], [place] [address] Potassium [Moles/Vol] 4.8 mmol/L Normal 3.5-5.1 [facility] ([place]) Comment on above: Performed By: #### C BC, ANEU, ADIFF, GFR, CMP ####[address] [place], [place] [address] Sodium [Moles/Vol] 144 mmol/L Normal 136-145 [facility] ([place] Comment on above: Performed By: #### C BC, ANEU, ADIFF, GFR, CMP ####[address] [place], [place] [address] Total Protein 7.4 G/dL Normal 6.4-8.2 [facility] ([place] Comment on above: Performed By: #### C BC, ANEU, ADIFF, GFR, CMP ####[address] [place], [place] [address] Urea nitrogen [Mass/Vol] 60 mg/dL High 7-18 [facility] ([place] Comment on above: Performed By: #### C BC, ANEU, ADIFF, GFR, CMP ####[address] [place], [place] [address] .Auto Diffon 01-19-2023 Basophil, Absolute 0.1 10 3/mcL Normal 0.0-0.2 [facility] ([place] Comment on above: Performed By: #### C BC, ANEU, ADIFF, BMP, GFR ####[address] [place], [place] [address] Basophils/100 WBC (Bld) 1.0 % Normal 0.0-2.5 [facility] ([place]) Comment on above: Performed By: #### C BC, ANEU, ADIFF, BMP, GFR ####[address] [place], [place] [address] Eosinophil, Absolute 0.3 10 3/mcL Normal 0.0-0.4 [facility] ([place]) Comment on above: Performed By: #### C BC, ANEU, ADIFF, BMP, GFR ####[address] [place], [place] [address] Eosinophils/100 WBC (Bld) 5.7 % Normal 0.0-7.0 [facility] ([place] Comment on above: Performed By: #### C BC, ANEU, ADIFF, BMP, GFR ####[address] [place], [place] [address] Lymphocyte, Absolute 1.4 10 3/mcL Normal 0.8-3.9 [facility] ([place] Comment on above: Performed By: #### C BC, ANEU, ADIFF, BMP, GFR ####[address] [place], [place] [address] Lymphocytes/100 WBC (Bld) 24.7 % Normal 10.0-50.0 [facility] ([place]) Comment on above: Performed By: #### C BC, ANEU, ADIFF, BMP, GFR ####[address] [place], [place] [address] Monocyte, Absolute 0.5 10 3/mcL Normal 0.2-1.0 [facility] ([place] Comment on above: Performed By: #### C BC, ANEU, ADIFF, BMP, GFR ####[address] [place], [place] [address] Monocytes/100 WBC (Bld) 8.4 % Normal 1.7-13.0 [facility] ([place] Comment on above: Performed By: #### C BC, ANEU, ADIFF, BMP, GFR ####[address] [place], [place] [address] Neutrophils/100 WBC (Bld) 60.2 % Normal 37.0-80.0 [facility] ([place] Comment on above: Performed By: #### C BC, ANEU, ADIFF, BMP, GFR ####[address] [place], [place] [address] .GFRon 01-19-2023 GFR Non- 26 ml/min/1.73sqm Normal [facility] ([place] Comment on above: Result Comment: GFR Population [...] C BC, ANEU, ADIFF, BMP, GFR ####[address] [place], [place] [address] GFR 32 ml/min/1.73sqm Normal [facility] ([place] Comment on above: Result Comment: GFR Population [...] BC, ANEU, ADIFF, BMP, GFR ####[address] [place], [place] [address] .NEUABSon 01-19-2023 Neutrophil, Absolute 3.5 10 3/mcL Normal 2.9-6.2 [facility] ([place] Comment on above: Performed By: #### C BC, ANEU, ADIFF, BMP, GFR ####[address] [place], [place] [address] BMPon 01-19-2023 BUN/Creatinine Ratio 26 ratio Normal 7-27 [facility] ([place] Comment on above: Performed By: #### C BC, ANEU, ADIFF, BMP, GFR ####[address] [place], [place] [address] Calcium [Mass/Vol] 8.6 mg/dL Normal 8.4-10.2 [facility] ([place] Comment on above: Performed By: #### C BC, ANEU, ADIFF, BMP, GFR ####[address] [place], [place] [address] Chloride [Moles/Vol] 106 mmol/L Normal 98-107 [facility] ([place] Comment on above: Performed By: #### C BC, ANEU, ADIFF, BMP, GFR ####[address] [place], [place] [address] CO2 [Moles/Vol] 31 mmol/L Normal 23-31 [facility] ([place] Comment on above: Performed By: #### C BC, ANEU, ADIFF, BMP, GFR ####[address] [place], [place] [address] Creatinine [Mass/Vol] 2.39 mg/dL High 0.70-1.30 [facility] ([place] Comment on above: Performed By: #### C BC, ANEU, ADIFF, BMP, GFR ####[address] [place], [place] [address] Electrolyte Balance 10.0 mEq/L Normal 4.0-15.0 [facility] [place] Comment on above: Performed By: #### C BC, ANEU, ADIFF, BMP, GFR ####[address] [place], [place] [address] Glucose [Mass/Vol] 223 mg/dL High 83-110 [facility] ([place] Comment on above: Performed By: #### C BC, ANEU, ADIFF, BMP, GFR ####[address] [place], [place] [address] Potassium [Moles/Vol] 4.5 mmol/L Normal 3.5-5.1 [facility] ([place]) Comment on above: Performed By: #### C BC, ANEU, ADIFF, BMP, GFR ####[address] [place], [place] [address] Sodium [Moles/Vol] 147 mmol/L High 136-145 [facility] ([place] Comment on above: Performed By: #### C BC, ANEU, ADIFF, BMP, GFR ####[address] [place], [place] [address] Urea nitrogen [Mass/Vol] 62 mg/dL High 7-18 [facility] ([place] Comment on above: Performed By: #### C BC, ANEU, ADIFF, BMP, GFR ####[address] [place], [place] [address] CBCon 01-19-2023 Erythrocyte distribution width (RBC) [Ratio] 14.7 % High 11.5-14.5 [facility] ([place] Comment on above: Performed By: #### C BC, ANEU, ADIFF, BMP, GFR ####[address] [place], [place] [address] Hematocrit (Bld) [Volume fraction] 26.1 % Low 42.0-52.0 [facility] ([place] Comment on above: Performed By: #### C BC, ANEU, ADIFF, BMP, GFR ####[address] [place], [place] [address] Hgb 8.4 G/dL Low 14.0-18.0 [facility] ([place] Comment on above: Performed By: #### C BC, ANEU, ADIFF, BMP, GFR ####[address] [place], [place] [address] MCH (RBC) [Entitic mass] 27.2 pg Normal 27.0-31.2 [facility] ([place] Comment on above: Performed By: #### C BC, ANEU, ADIFF, BMP, GFR ####[address] [place], [place] [address] MCHC 32.1 G/dL Normal 31.8-35.4 [facility] ([place] Comment on above: Performed By: #### C BC, ANEU, ADIFF, BMP, GFR ####[address] [place], [place] [address] MCV (RBC) [Entitic vol] 84.6 fL Normal 80.0-94.0 [facility] ([place] Comment on above: Performed By: #### C BC, ANEU, ADIFF, BMP, GFR ####[address] [place], [place] [address] Platelet 131 10 3/mcL Normal 130-400 [facility] ([place] Comment on above: Performed By: #### C BC, ANEU, ADIFF, BMP, GFR ####[address] [place], [place] [address] Platelet mean volume (Bld) [Entitic vol] 9.0 fL Normal 7.4-10.4 [facility] ([place] Comment on above: Performed By: #### C BC, ANEU, ADIFF, BMP, GFR ####[address] [place], [place] [address] RBC 3.09 10 6/mcL Low 4.04-6.13 [facility] ([place] Comment on above: Performed By: #### C BC, ANEU, ADIFF, BMP, GFR ####[address] [place], [place] [address] WBC 5.7 10 3/mcL Normal 4.6-10.8 [facility] ([place] Comment on above: Performed By: #### C BC, ANEU, ADIFF, BMP, GFR ####[address] [place], [place] [address] LABORATORYOrdered By: Caroline Ruiz on 01-19-2023 Cholesterol [...] 01-19-2023 Cholesterol [Mass/Vol] 154 mg/dL Normal 0-200 [facility] ([place] Comment on above: Result Comment: Chol esterol Reference Interval:Less than 200 [id number] Borderline high [id number] and above High risk Performed By: #### L IPID ####[address] [place], [place] [address] Cholesterol in HDL [Mass/Vol] 38 mg/dL Low 40-60 [facility] ([place]) Comment on above: Performed By: #### L IPID ####[address] [place], [place] [address] Cholesterol in LDL [Mass/Vol] 96 mg/dL Normal 0-130 [facility] ([place] Comment on above: Performed By: #### L IPID ####[address] [place], [place] [address] Triglyceride [Mass/Vol] 100 mg/dL Normal 0-150 [facility] ([place]) Comment on above: Result Comment: Trig lyceride Reference Interval:Less than 150 [id number] Borderline high [id number] High [id number] or higher Very high risk Performed By: #### L IPID ####[address] [place], [place] [address] Basophil percentageOrdered B y: Talya Nichols on 12-11-2022 Basophil percentage 4.4 mg/dL 2.5-4.9 [facility] Chloride [Moles/Vol] 107 mmol/L 98-107 [facility] Glucose [Mass/Vol] 160 mg/dL 74-106 [facility] Comment on above: Fasting Glucose resu lt greater than or equal to 126 mg/dL suggests DIABETES MELLITUS per A.D.A. criteria. Potassium [Moles/Vol] 4.2 mmol/L 3.5-5.1 [facility] Sodium [Moles/Vol] 141 mmol/L 136-145 [facility] WBC (Bld) [#/Vol] 4.4 10*3/uL 4.4-11.0 [facility] Blood erythrocytes count (nu mber/volume)Ordered By: Talya Nichols on 12-11-2022 RBC (Bld) [#/Vol] 3.00 10*6/uL 4.6-6.2 [facility] Blood hemoglobin measurement (mass/volume)Ordered By: Talya iNchols on 12-11-2022 Hemoglobin (Bld) [Mass/Vol] 9.0 g/dL 13.0-16.5 [facility] Blood platelet mean volumeOr dered By: Talya Nichols on 12-11-2022 Platelet mean volume (Bld) [Entitic vol] 12.2 fL 6.2-12.0 [facility] Determination of erythrocyte mean corpuscular volume (MCV)Ordered By: Talya Nichols on 12-11-2022 MCV (RBC) [Entitic vol] 95.7 fL 80-94 [facility] Hematocrit Auto (Bld) [Volum e fraction]Ordered By: Talya Nichols on 12-11-2022 Hematocrit (Bld) [Volume fraction] 28.7 % 40-54 [facility] - Chemistry and C hemistry - challengeOrdered By: Talya Nichols on 12-11-2022 CO2 [Moles/Vol] 27.0 mmol/L 21.0-32.0 [facility] Urea nitrogen/Creatinine [Mass ratio] 30.2 mg/mg 10-20 [facility] - Hematology and Cell countsOrdered By: Talya Nichols on 12-11-2022 Erythrocyte distribution width (RBC) [Entitic vol] 46.2 fL 35.1-43.9 [facility] Erythrocyte distribution width (RBC) [Ratio] 13.2 % 11.6-14.6 [facility] MCH (RBC) [Entitic mass] 30.0 pg 27.0-32.0 [facility] MCHC Auto (RBC) [Mass/Vol]Or dered By: Talya Nichols on 12-11-2022 MCHC (RBC) [Mass/Vol] 31.4 g/dL 32-36 [facility] No Panel InformationOrdered By: Talya Nichols on 12-11-2022 Estimated GFR (MDRD) Amer 31 mL/min >60 [facility] Comment on above: GFR Calc Estimated GFR (MDRD) Non-Af Amer 25 mL/min >60 [facility] Comment on above: Non- GFR Calc Platelets bldOrdered By: Oswaldo Nichols on 12-11-2022 Platelets (Bld) [#/Vol] 104 10*3/uL 150-450 [facility] Serum or plasma albumin elmira urement (mass/volume)Ordered By: Talya Nichols on 12-11-2022 Albumin [Mass/Vol] 3.0 g/dL 3.2-5.0 [facility] Serum or plasma calcium elmira urement (mass/volume)Ordered By: Talya Nichols on 12-11-2022 Calcium [Mass/Vol] 8.9 mg/dL 8.5-10.1 [facility] Serum or plasma creatinine m easurement (mass/volume)Ordered By: Talya Nichols on 12-11-2022 Creatinine [Mass/Vol] 2.58 mg/dL 0.70-1.30 [facility] Comment on above: The validity of the calculated GFR & GFRAA in patients over 70 years has not been determined. Clinical correlation is essential. Serum or plasma urea nitroge n measurement (mass/volume)Ordered By: Talya Nichols on 12-11-2022 Urea nitrogen [Mass/Vol] 78 mg/dL 09-26 [facility] RENINDon 11-28-2022 Direct Renin 281.2 pg/mL High 3.6-81.6 [facility] ([place]) Comment on above: Result Comment: A ra [...] years: 3.2-33.2 pg/mLAge >=41 years: 2.5-45.1 pg/mLPerformed By:[place] [id number] Director: Norris Malone III, M.D.CLIA#: [id number] Performed By: #### A LAMBERTO, CBC, VIDH, GFR, CMP, PBNP, ADIFF, A1C, RENIND ####[facility] [place], [place] [address]#### PTH ####[place] [address] Patient Upright or Supine Upright Normal [facility] ([place]) Comment on above: Result Comment: Perf ormed By:[facility] [id number] [place] [id number] Director: Norris Malone III, M.D.CLIA#: [id number] Performed By: #### A LAMBERTO, CBC, VIDH, GFR, CMP, PBNP, ADIFF, A1C, RENIND ####[place] [address]#### PTH ####[address] [address] .Auto Diffon 11-24-2022 Basophil, Absolute 0.1 10 3/mcL Normal 0.0-0.2 [facility] ([place]) Comment on above: Performed By: #### A LAMBERTO, CBC, VIDH, GFR, CMP, PBNP, ADIFF, A1C, RENIND ####[place] [address]#### PTH ####[place] [address] Basophils/100 WBC (Bld) 1.0 % Normal 0.0-2.5 A [facility] ([place]) Comment on above: Performed By: #### A LAMBERTO, CBC, VIDH, GFR, CMP, PBNP, ADIFF, A1C, RENIND ####[place] [address]#### PTH ####[place] [address] Eosinophil, Absolute 0.3 10 3/mcL Normal 0.0-0.4 [facility] ([place] Comment on above: Performed By: #### A LAMBERTO, CBC, VIDH, GFR, CMP, PBNP, ADIFF, A1C, RENIND ####[place] [address]#### PTH ####[place] [address] Eosinophils/100 WBC (Bld) 5.8 % Normal 0.0-7.0 [facility] ([place] Comment on above: Performed By: #### A LAMBERTO, CBC, VIDH, GFR, CMP, PBNP, ADIFF, A1C, RENIND ####[place] [address]#### PTH ####[place] [address] Lymphocyte, Absolute 1.2 10 3/mcL Normal 0.8-3.9 [facility] ([place] Comment on above: Performed By: #### A LAMBERTO, CBC, VIDH, GFR, CMP, PBNP, ADIFF, A1C, RENIND ####[place] [address]#### PTH ####[address] [address] Lymphocytes/100 WBC (Bld) 21.5 % Normal 10.0-50.0 [facility] ([place] Comment on above: Performed By: #### A LAMBERTO, CBC, VIDH, GFR, CMP, PBNP, ADIFF, A1C, RENIND ####[place] [address]#### PTH ####[address] [address] Monocyte, Absolute 0.4 10 3/mcL Normal 0.2-1.0 [facility] ([place] Comment on above: Performed By: #### A LAMBERTO, CBC, VIDH, GFR, CMP, PBNP, ADIFF, A1C, RENIND ####[place] [address]#### PTH ####[address] [address] Monocytes/100 WBC (Bld) 7.7 % Normal 1.7-13.0 [facility] ([place]) Comment on above: Performed By: #### A LAMBERTO, CBC, VIDH, GFR, CMP, PBNP, ADIFF, A1C, RENIND ####[place] [address]#### PTH ####[address] [address] Neutrophils/100 WBC (Bld) 64.0 % Normal 37.0-80.0 [facility] ([place] Comment on above: Performed By: #### A LAMBERTO, CBC, VIDH, GFR, CMP, PBNP, ADIFF, A1C, RENIND ####[place] [address]#### PTH ####[address] [address] .GFRon 11-24-2022 GFR 30 ml/min/1.73sqm Normal [facility] ([place] Comment on above: Result Comment: GFR Population [...] CMP, PBNP, ADIFF, A1C, RENIND ####[address] [place], [place] [address]#### PTH ####[address] [address] GFR Non- 24 ml/min/1.73sqm Normal [facility] ([place] Comment on above: Result Comment: GFR Population [...] CMP, PBNP, ADIFF, A1C, RENIND ####[address] [place], [place] [address]#### PTH ####[place] [address] .NEUABSon 11-24-2022 Neutrophil, Absolute 3.6 10 3/mcL Normal 2.9-6.2 [facility] ([place] Comment on above: Performed By: #### A LAMBERTO, CBC, VIDH, GFR, CMP, PBNP, ADIFF, A1C, RENIND ####[place] [address]#### PTH ####[place] [address] A1Con 11-24-2022 HbA1c (Bld) [Mass fraction] 6.3 % Normal 4.3-6.4 [facility] ([place] Comment on above: Performed By: #### A LAMBERTO, CBC, VIDH, GFR, CMP, PBNP, ADIFF, A1C, RENIND ####[place] [address]#### PTH ####[place] [address] CBCon 11-24-2022 Erythrocyte distribution width (RBC) [Ratio] 14.5 % Normal 11.5-14.5 [facility] ([place] Comment on above: Performed By: #### A LAMBERTO, CBC, VIDH, GFR, CMP, PBNP, ADIFF, A1C, RENIND ####[place] [address]#### PTH ####[place] [address] Hematocrit (Bld) [Volume fraction] 29.6 % Low 42.0-52.0 [facility] ([place] Comment on above: Performed By: #### A LAMBERTO, CBC, VIDH, GFR, CMP, PBNP, ADIFF, A1C, RENIND ####[place] [address]#### PTH ####[place] [address] Hgb 9.8 G/dL Low 14.0-18.0 [facility] ([place] Comment on above: Performed By: #### A LAMBERTO, CBC, VIDH, GFR, CMP, PBNP, ADIFF, A1C, RENIND ####[place] [address]#### PTH ####[place] [address] MCH (RBC) [Entitic mass] 30.2 pg Normal 27.0-31.2 [facility] ([place] Comment on above: Performed By: #### A LAMBERTO, CBC, VIDH, GFR, CMP, PBNP, ADIFF, A1C, RENIND ####[place] [address]#### PTH ####[place] [address] MCHC 33.0 G/dL Normal 31.8-35.4 [facility] ([place] Comment on above: Performed By: #### A LAMBERTO, CBC, VIDH, GFR, CMP, PBNP, ADIFF, A1C, RENIND ####[place] [address]#### PTH ####[place] [address] MCV (RBC) [Entitic vol] 91.4 fL Normal 80.0-94.0 A [facility] ([place]) Comment on above: Performed By: #### A LAMBERTO, CBC, VIDH, GFR, CMP, PBNP, ADIFF, A1C, RENIND ####[place] [address]#### PTH ####[place] [address] Platelet 153 10 3/mcL Normal 130-400 [facility] ([place] Comment on above: Performed By: #### A LAMBERTO, CBC, VIDH, GFR, CMP, PBNP, ADIFF, A1C, RENIND ####[place] [address]#### PTH ####[place] [address] Platelet mean volume (Bld) [Entitic vol] 8.1 fL Normal 7.4-10.4 [facility] ([place] Comment on above: Performed By: #### A LAMBERTO, CBC, VIDH, GFR, CMP, PBNP, ADIFF, A1C, RENIND ####[place] [address]#### PTH ####[place] [address] RBC 3.24 10 6/mcL Low 4.04-6.13 [facility] ([place] Comment on above: Performed By: #### A LAMBERTO, CBC, VIDH, GFR, CMP, PBNP, ADIFF, A1C, RENIND ####[place] [address]#### PTH ####[place] [address] WBC 5.7 10 3/mcL Normal 4.6-10.8 [facility] ([place] Comment on above: Performed By: #### A LAMBERTO, CBC, VIDH, GFR, CMP, PBNP, ADIFF, A1C, RENIND ####[place] [address]#### PTH ####[place] [address] CMPon 11-24-2022 Albumin Level 3.6 G/dL Normal 3.4-4.8 [facility] ([place] Comment on above: Performed By: #### A LAMBERTO, CBC, VIDH, GFR, CMP, PBNP, ADIFF, A1C, RENIND ####[place] [address]#### PTH ####[place] [address] Albumin/Globulin [Mass ratio] 1.0 {ratio} Low 1.1-2.5 [facility] ([place] Comment on above: Performed By: #### A LAMBERTO, CBC, VIDH, GFR, CMP, PBNP, ADIFF, A1C, RENIND ####[place] [address]#### PTH ####[address] [address] ALP [Catalytic activity/Vol] 81 U/L Normal 40-135 [facility] ([place] Comment on above: Performed By: #### A LAMBERTO, CBC, VIDH, GFR, CMP, PBNP, ADIFF, A1C, RENIND ####[place] [address]#### PTH ####[address] [address] ALT [Catalytic activity/Vol] 46 U/L Normal 16-63 [facility] ([place] Comment on above: Performed By: #### A LAMBERTO, CBC, VIDH, GFR, CMP, PBNP, ADIFF, A1C, RENIND ####[place] [address]#### PTH ####[place] [address] AST [Catalytic activity/Vol] 29 U/L Normal 10-40 [facility] ([place] Comment on above: Performed By: #### A LAMBERTO, CBC, VIDH, GFR, CMP, PBNP, ADIFF, A1C, RENIND ####[place] [address]#### PTH ####[address] [address] Bili Total 0.5 mg/dL Normal 0.2-1.0 [facility] ([place] Comment on above: Result Comment: Use of this assay is not recommended for patients undergoing treatment with eltrombopag due to the potential for falsely elevated results. Performed By: #### A LAMBERTO, CBC, VIDH, GFR, CMP, PBNP, ADIFF, A1C, RENIND ####[place] [address]#### PTH ####[place] [address] BUN/Creatinine Ratio 23 ratio Normal 7-27 [facility] ([place] Comment on above: Performed By: #### A LAMBERTO, CBC, VIDH, GFR, CMP, PBNP, ADIFF, A1C, RENIND ####[place] [address]#### PTH ####[address] [address] Calcium [Mass/Vol] 8.7 mg/dL Normal 8.4-10.2 [facility] ([place] Comment on above: Performed By: #### A LAMBERTO, CBC, VIDH, GFR, CMP, PBNP, ADIFF, A1C, RENIND ####[place] [address]#### PTH ####[place] [address] Chloride [Moles/Vol] 105 mmol/L Normal 98-107 [facility] ([place] Comment on above: Performed By: #### A LAMBERTO, CBC, VIDH, GFR, CMP, PBNP, ADIFF, A1C, RENIND ####[place] [address]#### PTH ####[place] [address] CO2 [Moles/Vol] 28 mmol/L Normal 23-31 [facility] ([place] Comment on above: Performed By: #### A LAMBERTO, CBC, VIDH, GFR, CMP, PBNP, ADIFF, A1C, RENIND ####[place] [address]#### PTH ####[place] [address] Creatinine [Mass/Vol] 2.53 mg/dL High 0.70-1.30 [facility] ([place] Comment on above: Performed By: #### A LAMBERTO, CBC, VIDH, GFR, CMP, PBNP, ADIFF, A1C, RENIND ####[place] [address]#### PTH ####[place] [address] Electrolyte Balance 11.0 mEq/L Normal 4.0-15.0 [facility] [place] Comment on above: Performed By: #### A LAMBERTO, CBC, VIDH, GFR, CMP, PBNP, ADIFF, A1C, RENIND ####[place] [address]#### PTH ####[address] [address] Globulin 3.6 G/dL Normal [facility] ([place] Comment on above: Performed By: #### A LAMBERTO, CBC, VIDH, GFR, CMP, PBNP, ADIFF, A1C, RENIND ####[place] [address]#### PTH ####[address] [address] Glucose [Mass/Vol] 207 mg/dL High 83-110 [facility] ([place] Comment on above: Performed By: #### A LAMBERTO, CBC, VIDH, GFR, CMP, PBNP, ADIFF, A1C, RENIND ####[place] [address]#### PTH ####[address] [address] Potassium [Moles/Vol] 4.9 mmol/L Normal 3.5-5.1 [facility] ([place] Comment on above: Performed By: #### A LAMBERTO, CBC, VIDH, GFR, CMP, PBNP, ADIFF, A1C, RENIND ####[place] [address]#### PTH ####[address] [address] Sodium [Moles/Vol] 144 mmol/L Normal 136-145 [facility] ([place] Comment on above: Performed By: #### A LAMBERTO, CBC, VIDH, GFR, CMP, PBNP, ADIFF, A1C, RENIND ####[place] [address]#### PTH ####[address] [address] Total Protein 7.2 G/dL Normal 6.4-8.2 [facility] ([place] Comment on above: Performed By: #### A LAMBERTO, CBC, VIDH, GFR, CMP, PBNP, ADIFF, A1C, RENIND ####[place] [address] [place], [place] [address]#### PTH ####[address] [address] Urea nitrogen [Mass/Vol] 59 mg/dL High 7-18 [facility] ([place]) Comment on above: Performed By: #### A LAMBERTO, CBC, VIDH, GFR, CMP, PBNP, ADIFF, A1C, RENIND ####[place] [id number] [place], [place] [address]#### PTH ####[place] [address] LABORATORYOrdered By: SYSTEM SYSTEM on 11-24-2022 25-hydroxyvitamin [...] B (Bld) [Mass/Vol] 538 pg/mL High 0-450 [facility] ([place]) Comment on above: Result Comment: NT-p roBNP results of less than 300 pg/mL effectivelyrules out acute congestive heart failure with 99% negative predictive value. Performed By: #### A LAMBERTO, CBC, VIDH, GFR, CMP, PBNP, ADIFF, A1C, RENIND ####[id number] [place], [place] [address]#### PTH ####Katie [address] [address] PTHon 11-24-2022 PTH, Intact 235.9 pg/mL High 18.5-88.0 [facility] ([place]) Comment on above: Performed By: #### A LAMBERTO, CBC, VIDH, GFR, CMP, PBNP, ADIFF, A1C, RENIND ####[place] [id number]#### PTH ####[place] [id number] VIDHon 11-24-2022 Vit. D 25-Hydroxy 39.9 ng/mL Normal [facility] ([place]) Comment on above: Result Comment: Inte rpretive Values Based on Total 25(OH) Vitamin D:Deficient <20 ng/mLInsufficient 20 - <30 ng/mLSufficient 30-100 ng/mL Performed By: #### A LAMBERTO, CBC, VIDH, GFR, CMP, PBNP, ADIFF, A1C, RENIND ####[id number] [place] [address]#### PTH ####[place] [address] Basophil percentageOrdered B y: Erika Godwin on 11-18-2022 Basophil percentage 2.6 mg/dL 2.5-4.9 [facility] Chloride [Moles/Vol] 113 mmol/L 98-107 [facility] [facility] Glucose [Mass/Vol] 254 mg/dL 74-106 [facility] Comment on above: Glucose result great er than or equal to 200 mg/dLsuggests DIABETES MELLITUS per A.D.A. criteria. Potassium [Moles/Vol] 5.0 mmol/L 3.5-5.1 [facility] Sodium [Moles/Vol] 142 mmol/L 136-145 [facility] WBC (Bld) [#/Vol] 6.0 10*3/uL 4.4-11.0 [facility] Blood erythrocytes count (nu mber/volume)Ordered By: Erika Godwin on 11-18-2022 RBC (Bld) [#/Vol] 2.80 10*6/uL 4.6-6.2 [facility] Blood hemoglobin measurement (mass/volume)Ordered By: Erika Godwin on 11-18-2022 Hemoglobin (Bld) [Mass/Vol] 8.4 g/dL 13.0-16.5 [facility] Blood platelet mean volumeOr dered By: Erika Godwin on 11-18-2022 Platelet mean volume (Bld) [Entitic vol] 10.7 fL 6.2-12.0 [facility] Determination of erythrocyte mean corpuscular volume (MCV)Ordered By: Erika Godwin on 11-18-2022 MCV (RBC) [Entitic vol] 98.9 fL 80-94 [facility] Glucose Glucometer (BldC) [M ass/Vol]Ordered By: Erika Godwin on 11-18-2022 Glucose [Mass/Vol] 258 mg/dL 74-106 [facility] Comment on above: MANAGEMENT OF PATIEN T CARE PER NURSING PROTOCOL Hematocrit Auto (Bld) [Volum e fraction]Ordered By: Erika Godwin on 11-18-2022 Hematocrit (Bld) [Volume fraction] 27.7 % 40-54 [facility] Laboratory - Chemistry and C hemistry - challengeOrdered By: Erika Godwin on 11-18-2022 CO2 [Moles/Vol] 25.0 mmol/L 21.0-32.0 [facility] Magnesium [Mass/Vol] 2.1 mg/dL 1.6-2.6 [facility] Urea nitrogen/Creatinine [Mass ratio] 25.6 mg/mg 10-20 [facility] - Hematology and Cell countsOrdered By: Erika Godwin on 11-18-2022 Erythrocyte distribution width (RBC) [Entitic vol] 52.4 fL 35.1-43.9 [facility] Erythrocyte distribution width (RBC) [Ratio] 14.4 % 11.6-14.6 [facility] MCH (RBC) [Entitic mass] 30.0 pg 27.0-32.0 [facility] MCHC Auto (RBC) [Mass/Vol]Or dered By: Erika Godwin on 11-18-2022 MCHC (RBC) [Mass/Vol] 30.3 g/dL 32-36 [facility] No Panel InformationOrdered By: Erika Godwin on 11-18-2022 Estimated Creatinine Clearance Calc 20.46 ml/min [facility] Estimated GFR (MDRD) Amer 34 mL/min >60 [facility] Comment on above: GFR Calc Estimated GFR (MDRD) Non-Af Amer 28 mL/min >60 [facility] Comment on above: Non- GFR Calc Platelets bldOrdered By: Jon Godwin on 11-18-2022 Platelets (Bld) [#/Vol] 112 10*3/uL 150-450 [facility] Serum or plasma calcium elmira urement (mass/volume)Ordered By: Erika Godwin on 11-18-2022 Calcium [Mass/Vol] 8.4 mg/dL 8.5-10.1 [facility] Serum or plasma creatinine m easurement (mass/volume)Ordered By: Erika Godwin on 11-18-2022 Creatinine [Mass/Vol] 2.38 mg/dL 0.70-1.30 [facility] Comment on above: The validity of the calculated GFR & GFRAA in patients over 70 years has not been determined. Clinical correlation is essential. Serum or plasma urea nitroge n measurement (mass/volume)Ordered By: Erika Godwin on 11-18-2022 Urea nitrogen [Mass/Vol] 61 mg/dL 7-18 [facility] Thin prep Papanicolaou smear with manual screeningOrdered By: Erika Godwin on 11-18-2022 Thin prep Papanicolaou smear with manual screening 4 5-15 [facility] Absolute lymphocyte countOrd ered By: Tracy Stanley on 11-17-2022 Lymphocytes Auto (Unsp spec) [#/Vol] 1.32 10*3/uL 0.83-4.51 [facility] Basophil percentageOrdered B y: Tracy Stanley on 11-17-2022 Basophils/100 WBC (Bld) 0.7 % 0-1 [facility] Bilirubin [Mass/Vol] 1.30 mg/dL 0.20-1.00 [facility] Comment on above: For patients on eltr ombopag therapy, use of Dimension [place] TBIL is not recommended. Eosinophils/100 WBC (Bld) 8.8 % 0-5 [facility] Neutrophils (Bld) [#/Vol] 3.1 10*3/uL 2.0-7.7 [facility] Neutrophils/100 WBC (Bld) 58.6 % 47-70 [facility] Protein [Mass/Vol] 6.4 g/dL 6.4-8.2 [facility] Blood lymphocytes/100 leukoc ytesOrdered By: Tracy Stanley on 11-17-2022 Lymphocytes/100 WBC (Bld) 24.6 % 19-41 [facility] Blood monocytes/100 leukocyt esOrdered By: Tracy Stanley on 11-17-2022 Monocytes/100 WBC (Bld) 7.1 % 0-10 [facility] Laboratory - Chemistry and C hemistry - challengeOrdered By: Tracy Stanley on 11-17-2022 ALP [Catalytic activity/Vol] 61 U/L 45-117 [facility] ALT [Catalytic activity/Vol] 23 U/L 16-61 [facility] Globulin (S) [Mass/Vol] 3.6 g/dL 2.2-4.2 [facility] - Hematology and Cell countsOrdered By: Tracy Stanley on 11-17-2022 Immature granulocytes/100 WBC (Bld) 0.200 % 0.0-0.9 [facility] Comment on above: IG% - Immature Granu locytes (promyelocytes, myelocytes and metamyelocytes) > 1% indicates that a LEFT SHIFT is Present. Nucleated RBC/100 WBC (Bld) [Ratio] 0 % 0-5 [facility] Serum or plasma albumin elmira urement (mass/volume)Ordered By: Tracy Angel on 11-17-2022 Albumin [Mass/Vol] 2.8 g/dL 3.2-5.0 [facility] Serum or plasma albumin/glob ulin mass ratioOrdered By: Tracy Stanley on 11-17-2022 Albumin/Globulin [Mass ratio] 0.8 {ratio} 0.9-2.4 [facility] Thin prep Papanicolaou smear with manual screeningOrdered By: [facility] Stanley on 11-17-2022 Thin prep Papanicolaou smear with manual screening 17 U/L 15-37 [facility] Absolute lymphocyte countOrd ered By: Lonnie Moreno on 11-16-2022 Lymphocytes Auto (Unsp spec) [#/Vol] 1.12 10*3/uL 0.83-4.51 [facility] Basophil percentageOrdered B y: Lonnie Moreno on 11-16-2022 Basophils/100 WBC (Bld) 0.4 % 0-1 [facility] Chloride [Moles/Vol] 103 mmol/L 98-107 [facility] Eosinophils/100 WBC (Bld) 5.5 % 0-5 [facility] Glucose [Mass/Vol] 235 mg/dL 74-106 [facility] Comment on above: Glucose result great er than or equal to 200 mg/dLsuggests DIABETES MELLITUS per A.D.A. criteria. Neutrophils (Bld) [#/Vol] 3.8 10*3/uL 2.0-7.7 [facility] Neutrophils/100 WBC (Bld) 67.7 % 47-70 [facility] Potassium [Moles/Vol] 5.1 mmol/L 3.5-5.1 [facility] Sodium [Moles/Vol] 139 mmol/L 136-145 [facility] WBC (Bld) [#/Vol] 5.7 10*3/uL 4.4-11.0 [facility] Blood erythrocytes count (nu mber/volume)Ordered By: Lonnie Moreno on 11-16-2022 RBC (Bld) [#/Vol] 2.13 10*6/uL 4.6-6.2 [facility] Blood hemoglobin measurement (mass/volume)Ordered By: Lonnie Moreno on 11-16-2022 Hemoglobin (Bld) [Mass/Vol] 6.4 g/dL 13.0-16.5 [facility] Blood lymphocytes/100 leukoc ytesOrdered By: Lonnie Moreno on 11-16-2022 Lymphocytes/100 WBC (Bld) 19.8 % 19-41 [facility] Blood monocytes/100 leukocyt esOrdered By: Lonnie Moreno on 11-16-2022 Monocytes/100 WBC (Bld) 6.2 % 0-10 [facility] Blood platelet mean volumeOr dered By: Lonnie Moreno on 11-16-2022 Platelet mean volume (Bld) [Entitic vol] 10.9 fL 6.2-12.0 [facility] COVID-19 virus antigen assay Ordered By: Lonnie Moreno on 11-16-2022 SARS-CoV-2 (COVID-19) Ag IA.rapid Ql (Resp) [facility] SARS-CoV-2 (COVID-19) Ag IA.rapid Ql (Resp) [facility] Determination of erythrocyte mean corpuscular volume (MCV)Ordered By: Lonnie Moreno on 11-16-2022 MCV (RBC) [Entitic vol] 98.1 fL 80-94 [facility] Hematocrit Auto (Bld) [Volum e fraction]Ordered By: Lonnie Moreno on 11-16-2022 Hematocrit (Bld) [Volume fraction] 20.9 % 40-54 [facility] - Chemistry and C hemistry - challengeOrdered By: Lonnie Moreno on 11-16-2022 CO2 [Moles/Vol] 29.0 mmol/L 21.0-32.0 [facility] Natriuretic peptide B (Bld) [Mass/Vol] 50.7 pg/mL 0-100 [facility] Urea nitrogen/Creatinine [Mass ratio] 29.2 mg/mg 10-20 [facility] - Hematology and Cell countsOrdered By: Lonnie Moreno on 11-16-2022 Erythrocyte distribution width (RBC) [Entitic vol] 50.7 fL 35.1-43.9 [facility] Erythrocyte distribution width (RBC) [Ratio] 14.6 % 11.6-14.6 [facility] Immature granulocytes/100 WBC (Bld) 0.400 % 0.0-0.9 [facility] Comment on above: IG% - Immature Granu locytes (promyelocytes, myelocytes and metamyelocytes) > 1% indicates that a LEFT SHIFT is Present. MCH (RBC) [Entitic mass] 30.0 pg 27.0-32.0 [facility] Nucleated RBC/100 WBC (Bld) [Ratio] 0 % 0-5 [facility] MCHC Auto (RBC) [Mass/Vol]Or dered By: Lonnie Moreno on 11-16-2022 MCHC (RBC) [Mass/Vol] 30.6 g/dL 32-36 [facility] No Panel InformationOrdered By: Lonnie Moreno on 11-16-2022 Estimated Creatinine Clearance Calc 16.73 ml/min [facility] Estimated GFR (MDRD) Amer 27 mL/min >60 [facility] Comment on above: GFR Calc Estimated GFR (MDRD) Non-Af Amer 22 mL/min >60 [facility] Comment on above: Non- GFR Calc Troponin I High Sensitivity 25 pg/mL 3.0-78.0 [facility] Comment on above: Please Note: New Arti t Units and Gender Specific Reference Ranges. For more information see Policy Stat Procedure [place] High Sensitivity Troponin (TNIH) and attachments. Platelets bldOrdered By: Robb Moreno on 11-16-2022 Platelets (Bld) [#/Vol] 124 10*3/uL 150-450 [facility] Serum or plasma calcium elmira urement (mass/volume)Ordered By: Lonnie Moreno on 11-16-2022 Calcium [Mass/Vol] 9.1 mg/dL 8.5-10.1 [facility] Serum or plasma creatinine m easurement (mass/volume)Ordered By: Lonnie Moreno on 11-16-2022 Creatinine [Mass/Vol] 2.91 mg/dL 0.70-1.30 [facility] Comment on above: The validity of the calculated GFR & GFRAA in patients over 70 years has not been determined. Clinical correlation is essential. Serum or plasma urea nitroge n measurement (mass/volume)Ordered By: Lonnie Moreno on 11-16-2022 Urea nitrogen [Mass/Vol] 85 mg/dL 7-18 [facility] Stool gastrointestinal hemog lobin detection by immunologic methodOrdered By: Lonnie Moreno on 11-16-2022 Lower GI hemoglobin IA Ql (Stl) [facility] Lower GI hemoglobin IA Ql (Stl) [facility] Thin prep Papanicolaou smear with manual screeningOrdered By: Lonnie Moreno on 11-16-2022 Thin prep Papanicolaou smear with manual screening 7 5-15 [facility] .GFRon 11-08-2022 GFR 30 ml/min/1.73sqm Normal [facility] ([place]) Comment on above: Result Comment: GFR Population [...] Performed By: #### B MP, PBNP, GFR ####[address] [address] GFR Non- 25 ml/min/1.73sqm Normal [facility] ([place]) Comment on above: Result Comment: GFR Population [...] Performed By: #### B MP, PBNP, GFR ####[address] [address] BMPon 11-08-2022 BUN/Creatinine Ratio 34 ratio High 7-27 [facility] ([place]) Comment on above: Performed By: #### B MP, PBNP, GFR ####[address] [address] Calcium [Mass/Vol] 9.3 mg/dL Normal 8.4-10.2 [facility] ([place]) Comment on above: Performed By: #### B MP, PBNP, GFR ####[address] [address] Chloride [Moles/Vol] 104 mmol/L Normal 98-107 [facility] ([place] Comment on above: Performed By: #### B MP, PBNP, GFR ####[address] [address] CO2 [Moles/Vol] 32 mmol/L High 23-31 [facility] ([place] Comment on above: Performed By: #### B MP, PBNP, GFR ####[address] [address] Creatinine [Mass/Vol] 2.49 mg/dL High 0.70-1.30 [facility] ([place] Comment on above: Performed By: #### B MP, PBNP, GFR ####[address] [address] Electrolyte Balance 9.0 mEq/L Normal 4.0-15.0 [facility] [place] Comment on above: Performed By: #### B MP, PBNP, GFR ####[address] [address] Glucose [Mass/Vol] 241 mg/dL High 83-110 [facility] ([place] Comment on above: Performed By: #### B MP, PBNP, GFR ####[address] [address] Potassium [Moles/Vol] 5.1 mmol/L Normal 3.5-5.1 [facility] ([place] Comment on above: Performed By: #### B MP, PBNP, GFR ####[address] [address] Sodium [Moles/Vol] 145 mmol/L Normal 136-145 [facility] ([place] Comment on above: Performed By: #### B MP, PBNP, GFR ####[address] [address] Urea nitrogen [Mass/Vol] 85 mg/dL High 7-18 [facility] ([place] Comment on above: Performed By: #### B MP, PBNP, GFR ####[address] [address] LABORATORYOrdered By: SYSTEM SYSTEM on 11-08-2022 Calcium [...] B (Bld) [Mass/Vol] 570 pg/mL High 0-450 [facility] ([place] Comment on above: Result Comment: NT-p roBNP results of less than 300 pg/mL effectivelyrules out acute congestive heart failure with 99% negative predictive value. Performed By: #### B MP, PBNP, GFR ####[address] [address] .Auto Diffon 10-31-2022 Basophil, Absolute 0.0 10 3/mcL Normal 0.0-0.2 [facility] ([place] Comment on above: Performed By: #### C BC, GFR, ADIFF, BMP, PBNP, ANEU ####[address] [address] Basophils/100 WBC (Bld) 0.3 % Normal 0.0-2.5 [facility] ([place]) Comment on above: Performed By: #### C BC, GFR, ADIFF, BMP, PBNP, ANEU ####[address] [address] Eosinophil, Absolute 0.7 10 3/mcL High 0.0-0.4 [facility] ([place] Comment on above: Performed By: #### C BC, GFR, ADIFF, BMP, PBNP, ANEU ####[address] [address] Eosinophils/100 WBC (Bld) 5.1 % Normal 0.0-7.0 [facility] ([place]) Comment on above: Performed By: #### C BC, GFR, ADIFF, BMP, PBNP, ANEU ####[address] [address] Lymphocyte, Absolute 2.0 10 3/mcL Normal 0.8-3.9 [facility] ([place]) Comment on above: Performed By: #### C BC, GFR, ADIFF, BMP, PBNP, ANEU ####[address] [address] Lymphocytes/100 WBC (Bld) 15.0 % Normal 10.0-50.0 [facility] ([place]) Comment on above: Performed By: #### C BC, GFR, ADIFF, BMP, PBNP, ANEU ####[address] [address] Monocyte, Absolute 0.8 10 3/mcL Normal 0.2-1.0 [facility] ([place] Comment on above: Performed By: #### C BC, GFR, ADIFF, BMP, PBNP, ANEU ####[address] [address] Monocytes/100 WBC (Bld) 6.0 % Normal 1.7-13.0 [facility] ([place] Comment on above: Performed By: #### C BC, GFR, ADIFF, BMP, PBNP, ANEU ####[address] [address] Neutrophils/100 WBC (Bld) 73.6 % Normal 37.0-80.0 [facility] [place] Comment on above: Performed By: #### C BC, GFR, ADIFF, BMP, PBNP, ANEU ####[address] [address] .GFRon 10-31-2022 GFR 28 ml/min/1.73sqm Normal [facility] ([place] Comment on above: Result Comment: GFR Population [...] C BC, GFR, ADIFF, BMP, PBNP, ANEU ####[address] [address] GFR Non- 23 ml/min/1.73sqm Normal [facility] [place] Comment on above: Result Comment: GFR Population [...] C BC, GFR, ADIFF, BMP, PBNP, ANEU ####[address] [address] .NEUABSon 10-31-2022 Neutrophil, Absolute 9.6 10 3/mcL High 2.9-6.2 [facility] [place] Comment on above: Performed By: #### C BC, GFR, ADIFF, BMP, PBNP, ANEU ####[address] [address] BMPon 10-31-2022 BUN/Creatinine Ratio 47 ratio High 7-27 [facility] [place] Comment on above: Performed By: #### C BC, GFR, ADIFF, BMP, PBNP, ANEU ####[address] [address] Calcium [Mass/Vol] 8.2 mg/dL Low 8.4-10.2 [facility] [place] Comment on above: Performed By: #### C BC, GFR, ADIFF, BMP, PBNP, ANEU ####[address] [address] Chloride [Moles/Vol] 102 mmol/L Normal 98-107 [facility] [place] Comment on above: Performed By: #### C BC, GFR, ADIFF, BMP, PBNP, ANEU ####[address] [address] CO2 [Moles/Vol] 29 mmol/L Normal 23-31 [facility] [place] Comment on above: Performed By: #### C BC, GFR, ADIFF, BMP, PBNP, ANEU ####[address] [address] Creatinine [Mass/Vol] 2.67 mg/dL High 0.70-1.30 [facility] [place] Comment on above: Performed By: #### C BC, GFR, ADIFF, BMP, PBNP, ANEU ####[address] [address] Electrolyte Balance 9.0 mEq/L Normal 4.0-15.0 [facility] [place] Comment on above: Performed By: #### C BC, GFR, ADIFF, BMP, PBNP, ANEU ####[address] [address] Glucose [Mass/Vol] 272 mg/dL High 83-110 [facility] [place] Comment on above: Performed By: #### C BC, GFR, ADIFF, BMP, PBNP, ANEU ####[address] [address] Potassium [Moles/Vol] 4.8 mmol/L Normal 3.5-5.1 [facility] [place] Comment on above: Performed By: #### C BC, GFR, ADIFF, BMP, PBNP, ANEU ####[address] [address] Sodium [Moles/Vol] 140 mmol/L Normal 136-145 [facility] ([place] Comment on above: Performed By: #### C BC, GFR, ADIFF, BMP, PBNP, ANEU ####[place] [address] Urea nitrogen [Mass/Vol] 126 mg/dL High 7-18 [facility] [place] Comment on above: Performed By: #### C BC, GFR, ADIFF, BMP, PBNP, ANEU ####[place] [address] CBCon 10-31-2022 Erythrocyte distribution width (RBC) [Ratio] 15.0 % High 11.5-14.5 [facility] ([place] Comment on above: Performed By: #### C BC, GFR, ADIFF, BMP, PBNP, ANEU ####[place] [address] Hematocrit (Bld) [Volume fraction] 25.1 % Low 42.0-52.0 [facility] ([place] Comment on above: Performed By: #### C BC, GFR, ADIFF, BMP, PBNP, ANEU ####[place] [address] Hgb 8.4 G/dL Low 14.0-18.0 [facility] [place] Comment on above: Performed By: #### C BC, GFR, ADIFF, BMP, PBNP, ANEU ####[place] [address] MCH (RBC) [Entitic mass] 30.2 pg Normal 27.0-31.2 [facility] [place] Comment on above: Performed By: #### C BC, GFR, ADIFF, BMP, PBNP, ANEU ####[place] [address] MCHC 33.4 G/dL Normal 31.8-35.4 [facility] [place] Comment on above: Performed By: #### C BC, GFR, ADIFF, BMP, PBNP, ANEU ####[place] [address] MCV (RBC) [Entitic vol] 90.3 fL Normal 80.0-94.0 [facility] ([place] Comment on above: Performed By: #### C BC, GFR, ADIFF, BMP, PBNP, ANEU ####[place] [address] Platelet 192 10 3/mcL Normal 130-400 [facility] [place] Comment on above: Performed By: #### C BC, GFR, ADIFF, BMP, PBNP, ANEU ####[place] [address] Platelet mean volume (Bld) [Entitic vol] 7.9 fL Normal 7.4-10.4 [facility] [place] Comment on above: Performed By: #### C BC, GFR, ADIFF, BMP, PBNP, ANEU ####[place] [address] RBC 2.78 10 6/mcL Low 4.04-6.13 [facility] [place] Comment on above: Performed By: #### C BC, GFR, ADIFF, BMP, PBNP, ANEU ####[place] [address] WBC 13.1 10 3/mcL High 4.6-10.8 [facility] [place] Comment on above: Performed By: #### C BC, GFR, ADIFF, BMP, PBNP, ANEU ####[address] [address] PBNPon 10-31-2022 Natriuretic peptide B (Bld) [Mass/Vol] 836 pg/mL High 0-450 [facility] ([place] Comment on above: Result Comment: NT-p roBNP results of less than 300 pg/mL effectivelyrules out acute congestive heart failure with 99% negative predictive value. Performed By: #### C BC, GFR, ADIFF, BMP, PBNP, ANEU ####[place] [address] XR CHEST 2 VIEWSon XR CHEST 2 VIEWS Normal [facility] ([place] .GFRon 10-24-2022 GFR 34 ml/min/1.73sqm Normal [facility] ([place] Comment on above: Result Comment: GFR Population [...] #### C MP, PBNP, GFR ####[address] [place], [place] [address] GFR Non- 28 ml/min/1.73sqm Normal [facility] ([place] Comment on above: Result Comment: GFR Population [...] #### C MP, PBNP, GFR ####[address] [place], [place] [address] [facility] Albumin Level 3.6 G/dL Normal 3.4-4.8 [facility] [place] Comment on above: Performed By: #### C MP, PBNP, GFR ####[address] [place], [place] [address] Albumin/Globulin [Mass ratio] 0.9 {ratio} Low 1.1-2.5 [facility] [place] Comment on above: Performed By: #### C MP, PBNP, GFR ####[address] [place], [place] [address] ALP [Catalytic activity/Vol] 80 U/L Normal 40-135 [facility] [place] Comment on above: Performed By: #### C MP, PBNP, GFR ####[address] [place], [place] [address] ALT [Catalytic activity/Vol] 20 U/L Normal 16-63 [facility] [place] Comment on above: Performed By: #### C MP, PBNP, GFR ####[address] [place], [place] [address] AST [Catalytic activity/Vol] 21 U/L Normal 10-40 [facility] [place] Comment on above: Performed By: #### C MP, PBNP, GFR ####[address] [place], [place] [address] Bili Total 0.7 mg/dL Normal 0.2-1.0 [facility] ([place] Comment on above: Result Comment: Use of this assay is not recommended for patients undergoing treatment with eltrombopag due to the potential for falsely elevated results. Performed By: #### C MP, PBNP, GFR ####[address] [place], [place] [address] BUN/Creatinine Ratio 36 ratio High 7-27 [facility] [place] Comment on above: Performed By: #### C MP, PBNP, GFR ####[address] [place], [place] [address] Calcium [Mass/Vol] 10.0 mg/dL Normal 8.4-10.2 [facility] [place] Comment on above: Performed By: #### C MP, PBNP, GFR ####[address] [place], [place] [address] Chloride [Moles/Vol] 102 mmol/L Normal 98-107 [facility] [place] Comment on above: Performed By: #### C MP, PBNP, GFR ####[address] [place], [place] [address] CO2 [Moles/Vol] 32 mmol/L High 23-31 [facility] [place] Comment on above: Performed By: #### C MP, PBNP, GFR ####[address] [place], [place] [address] Creatinine [Mass/Vol] 2.22 mg/dL High 0.70-1.30 [facility] [place] Comment on above: Performed By: #### C MP, PBNP, GFR ####[address] [place], [place] [address] Electrolyte Balance 9.0 mEq/L Normal 4.0-15.0 [facility] [place] Comment on above: Performed By: #### C MP, PBNP, GFR ####[address] [place], [place] [address] Globulin 3.9 G/dL Normal [facility] [place] Comment on above: Performed By: #### C MP, PBNP, GFR ####[address] [place], [place] [address] Glucose [Mass/Vol] 127 mg/dL High 83-110 [facility] [place] Comment on above: Performed By: #### C MP, PBNP, GFR ####[address] [place], [place] [address] Potassium [Moles/Vol] 4.8 mmol/L Normal 3.5-5.1 [facility] [place] Comment on above: Performed By: #### C MP, PBNP, GFR ####[address] [place], [place] [address] Sodium [Moles/Vol] 143 mmol/L Normal 136-145 [facility] [place] Comment on above: Performed By: #### C MP, PBNP, GFR ####[address] [place], [place] [address] Total Protein 7.5 G/dL Normal 6.4-8.2 [facility] [place] Comment on above: Performed By: #### C MP, PBNP, GFR ####[address] [place], [place] [address] Urea nitrogen [Mass/Vol] 80 mg/dL High 7-18 [facility] [place] Comment on above: Performed By: #### C MP, PBNP, GFR ####[id number] [place], [place] [address] LABORATORYOrdered By: SYSTEM SYSTEM on 10-24-2022 Albumin [...] B (Bld) [Mass/Vol] 779 pg/mL High 0-450 [facility] ([place] Comment on above: Result Comment: NT-p roBNP results of less than 300 pg/mL effectivelyrules out acute congestive heart failure with 99% negative predictive value. Performed By: #### C MP, PBNP, GFR ####[place] [id number] [place], [place] [address] Absolute lymphocyte countOrd ered By: Eyal Calderon on 10-22-2022 Lymphocytes Auto (Unsp spec) [#/Vol] 1.35 10*3/uL 0.83-4.51 [facility] Basophil percentageOrdered B y: Eyal Calderon on 10-22-2022 Basophils/100 WBC (Bld) 0.6 % 0-1 [facility] Chloride [Moles/Vol] 105 mmol/L 98-107 [facility] Eosinophils/100 WBC (Bld) 6.9 % 0-5 [facility] Glucose [Mass/Vol] 171 mg/dL 74-106 [facility] Comment on above: Fasting Glucose resu lt greater than or equal to 126 mg/dL suggests DIABETES MELLITUS per A.D.A. criteria. Neutrophils (Bld) [#/Vol] 4.0 10*3/uL 2.0-7.7 [facility] Neutrophils/100 WBC (Bld) 63.1 % 47-70 [facility] Potassium [Moles/Vol] 4.5 mmol/L 3.5-5.1 [facility] Sodium [Moles/Vol] 143 mmol/L 136-145 [facility] WBC (Bld) [#/Vol] 6.3 10*3/uL 4.4-11.0 [facility] Blood erythrocytes count (nu mber/volume)Ordered By: Eyal Calderon on 10-22-2022 RBC (Bld) [#/Vol] 3.02 10*6/uL 4.6-6.2 [facility] Blood hemoglobin measurement (mass/volume)Ordered By: Eyal Calderon on 10-22-2022 Hemoglobin (Bld) [Mass/Vol] 9.0 g/dL 13.0-16.5 [facility] Blood lymphocytes/100 leukoc ytesOrdered By: Eyal Calderon on 10-22-2022 Lymphocytes/100 WBC (Bld) 21.3 % 19-41 [facility] Blood monocytes/100 leukocyt esOrdered By: Eyal Calderon on 10-22-2022 Monocytes/100 WBC (Bld) 7.9 % 0-10 [facility] Blood platelet mean volumeOr dered By: Eyal Calderon on 10-22-2022 Platelet mean volume (Bld) [Entitic vol] 10.9 fL 6.2-12.0 [facility] Determination of erythrocyte mean corpuscular volume (MCV)Ordered By: Eyal Calderon on 10-22-2022 MCV (RBC) [Entitic vol] 94.4 fL 80-94 [facility] Hematocrit Auto (Bld) [Volum e fraction]Ordered By: Eyal Calderon on 10-22-2022 Hematocrit (Bld) [Volume fraction] 28.5 % 40-54 [facility] Laboratory - Chemistry and C hemistry - challengeOrdered By: Eyal Calderon on 10-22-2022 CO2 [Moles/Vol] 33.0 mmol/L 21.0-32.0 [facility] Natriuretic peptide B (Bld) [Mass/Vol] 47.9 pg/mL 0-100 [facility] Urea nitrogen/Creatinine [Mass ratio] 36.4 mg/mg 10-20 [facility] Laboratory - Hematology and Cell countsOrdered By: Eyal Calderon on 10-22-2022 Erythrocyte distribution width (RBC) [Entitic vol] 47.1 fL 35.1-43.9 [facility] Erythrocyte distribution width (RBC) [Ratio] 13.8 % 11.6-14.6 [facility] Immature granulocytes/100 WBC (Bld) 0.200 % 0.0-0.9 [facility] Comment on above: IG% - Immature Granu locytes (promyelocytes, myelocytes and metamyelocytes) > 1% indicates that a LEFT SHIFT is Present. MCH (RBC) [Entitic mass] 29.8 pg 27.0-32.0 [facility] Nucleated RBC/100 WBC (Bld) [Ratio] 0 % 0[facility]5 [facility] [Mass/Vol]Or dered By: Eyal Calderon on 10-22-2022 MCHC (RBC) [Mass/Vol] 31.6 g/dL 32-36 [facility] No Panel InformationOrdered By: Eyal Calderon on 10-22-2022 D-Dimer Quantitative (PE/DVT) 0.62 FEU/ug/m 0.27-0.49 [facility] Comment on above: D-Dimer ELEVATED (>0 .49): Additional studies and clinicalassessments are indicated to conclude diagnosis of:Deep Vein Thrombosis (DVT) or Pulmonary Embolism (PE)CRITICAL VALUE VERIFIED. CALLED TO AYAZ [id number] Roc Angel.RESULTS READ BACK BY SAME . Estimated Creatinine Clearance Calc 24.59 ml/min [facility] Estimated GFR (MDRD) Amer 42 mL/min >60 [facility] Comment on above: GFR Calc Estimated GFR (MDRD) Non-Af Amer 34 mL/min >60 [facility] Comment on above: Non- GFR Calc Troponin I High Sensitivity 24 pg/mL 3.0-78.0 [facility] Comment on above: Please Note: New Arti t Units and Gender Specific Reference Ranges. For more information see Policy Stat Procedure [place] High Sensitivity Troponin (TNIH) and attachments. Platelets bldOrdered By: Nora Calderon on 10-22-2022 Platelets (Bld) [#/Vol] 116 10*3/uL 150-450 [facility] Serum or plasma calcium elmira urement (mass/volume)Ordered By: Eyal Calderon on 10-22-2022 Calcium [Mass/Vol] 9.4 mg/dL 8.5-10.1 [facility] Serum or plasma creatinine m easurement (mass/volume)Ordered By: Eyal Calderon on 10-22-2022 Creatinine [Mass/Vol] 1.98 mg/dL 0.70-1.30 [facility] Comment on above: The validity of the calculated GFR & GFRAA in patients over 70 years has not been determined. Clinical correlation is essential. Serum or plasma urea nitroge n measurement (mass/volume)Ordered By: Eyal Calderon on 10-22-2022 Urea nitrogen [Mass/Vol] 72 mg/dL 7-18 [facility] Thin prep Papanicolaou smear with manual screeningOrdered By: Eyal Calderon on 10-22-2022 Thin prep Papanicolaou smear with manual screening 5 5-15 [facility] XR CHEST 2 VIEWSon XR CHEST 2 VIEWS Normal [facility] ([place]) .Auto Diffon 10-19-2022 Basophil, Absolute 0.1 10 3/mcL Normal 0.0-0.2 [facility] ([place]) Comment on above: Performed By: #### C BC, ANEU, CMP, URIC, GFR, PBNP, ADIFF ####[address] [place], [place] [address] Basophils/100 WBC (Bld) 0.9 % Normal 0.0-2.5 [facility] ([place]) Comment on above: Performed By: #### C BC, ANEU, CMP, URIC, GFR, PBNP, ADIFF ####[address] [place], [place] [address] Eosinophil, Absolute 0.3 10 3/mcL Normal 0.0-0.4 [facility] ([place] Comment on above: Performed By: #### C BC, ANEU, CMP, URIC, GFR, PBNP, ADIFF ####[address] [place], [place] [address] Eosinophils/100 WBC (Bld) 5.7 % Normal 0.0-7.0 [facility] [place] Comment on above: Performed By: #### C BC, ANEU, CMP, URIC, GFR, PBNP, ADIFF ####[address] [place], [place] [address] Lymphocyte, Absolute 1.4 10 3/mcL Normal 0.8-3.9 [facility] ([place] Comment on above: Performed By: #### C BC, ANEU, CMP, URIC, GFR, PBNP, ADIFF ####[address] [place], [place] [address] Lymphocytes/100 WBC (Bld) 25.2 % Normal 10.0-50.0 [facility] ([place]) Comment on above: Performed By: #### C BC, ANEU, CMP, URIC, GFR, PBNP, ADIFF ####[address] [place], [place] [address] Monocyte, Absolute 0.5 10 3/mcL Normal 0.2-1.0 [facility] ([place]) Comment on above: Performed By: #### C BC, ANEU, CMP, URIC, GFR, PBNP, ADIFF ####[id number] [place], [place] [address] Monocytes/100 WBC (Bld) 8.6 % Normal 1.7-13.0 [facility] ([place]) Comment on above: Performed By: #### C BC, ANEU, CMP, URIC, GFR, PBNP, ADIFF ####[address] [place], [place] [address] Neutrophils/100 WBC (Bld) 59.6 % Normal 37.0-80.0 [facility] [place] Comment on above: Performed By: #### C BC, ANEU, CMP, URIC, GFR, PBNP, ADIFF ####[address] [place], [place] [address] .GFRon 10-19-2022 GFR 44 ml/min/1.73sqm Normal [facility] ([place] Comment on above: Result Comment: GFR Population [...] CMP, URIC, GFR, PBNP, ADIFF ####[address] [place], [place] [address] GFR Non- 36 ml/min/1.73sqm Normal [facility] ([place] Comment on above: Result Comment: GFR Population [...] CMP, URIC, GFR, PBNP, ADIFF ####[address] [place], [place] [address] .NEUABSon 10-19-2022 Neutrophil, Absolute 3.4 10 3/mcL Normal 2.9-6.2 [facility] ([place] Comment on above: Performed By: #### C BC, ANEU, CMP, URIC, GFR, PBNP, ADIFF ####[address] [place], [place] [address] CBCon 10-19-2022 Erythrocyte distribution width (RBC) [Ratio] 14.7 % High 11.5-14.5 [facility] [place] Comment on above: Performed By: #### C BC, ANEU, CMP, URIC, GFR, PBNP, ADIFF ####[address] [place], [place] [address] Hematocrit (Bld) [Volume fraction] 28.1 % Low 42.0-52.0 [facility] ([place] Comment on above: Performed By: #### C BC, ANEU, CMP, URIC, GFR, PBNP, ADIFF ####[address] [place], [place] [address] Hgb 9.3 G/dL Low 14.0-18.0 [facility] ([place] Comment on above: Performed By: #### C BC, ANEU, CMP, URIC, GFR, PBNP, ADIFF ####[address] [place], [place] [address] MCH (RBC) [Entitic mass] 29.7 pg Normal 27.0-31.2 [facility] [place] Comment on above: Performed By: #### C BC, ANEU, CMP, URIC, GFR, PBNP, ADIFF ####[address] [place], [place] [address] MCHC 33.2 G/dL Normal 31.8-35.4 [facility] [place] Comment on above: Performed By: #### C BC, ANEU, CMP, URIC, GFR, PBNP, ADIFF ####[address] [place], [place] [address] MCV (RBC) [Entitic vol] 89.5 fL Normal 80.0-94.0 [facility] ([place] Comment on above: Performed By: #### C BC, ANEU, CMP, URIC, GFR, PBNP, ADIFF ####[address] [place], [place] [address] Platelet 118 10 3/mcL Low 130-400 [facility] ([place] Comment on above: Performed By: #### C BC, ANEU, CMP, URIC, GFR, PBNP, ADIFF ####[address] [place], [place] [address] Platelet mean volume (Bld) [Entitic vol] 8.6 fL Normal 7.4-10.4 [facility] [place] Comment on above: Performed By: #### C BC, ANEU, CMP, URIC, GFR, PBNP, ADIFF ####[address] [place], [place] [address] RBC 3.14 10 6/mcL Low 4.04-6.13 [facility] [place] Comment on above: Performed By: #### C BC, ANEU, CMP, URIC, GFR, PBNP, ADIFF ####[address] [place] [id number] WBC 5.6 10 3/mcL Normal 4.6-10.8 [facility] [place] Comment on above: Performed By: #### C BC, ANEU, CMP, URIC, GFR, PBNP, ADIFF ####[id number] [place], [place] [address] CMPon 10-19-2022 Albumin Level 3.3 G/dL Low 3.4-4.8 [facility] ([place] Comment on above: Performed By: #### C BC, ANEU, CMP, URIC, GFR, PBNP, ADIFF ####[address] [place], [place] [address] Albumin/Globulin [Mass ratio] 0.9 {ratio} Low 1.1-2.5 [facility] [place] Comment on above: Performed By: #### C BC, ANEU, CMP, URIC, GFR, PBNP, ADIFF ####[address] [place], [place] [address] ALP [Catalytic activity/Vol] 71 U/L Normal 40-135 [facility] ([place] Comment on above: Performed By: #### C BC, ANEU, CMP, URIC, GFR, PBNP, ADIFF ####[address] [place], [place] [address] ALT [Catalytic activity/Vol] 21 U/L Normal 16-63 [facility] [place] Comment on above: Performed By: #### C BC, ANEU, CMP, URIC, GFR, PBNP, ADIFF ####[address] [place], [place] [address] AST [Catalytic activity/Vol] 16 U/L Normal 10-40 [facility] [place] Comment on above: Performed By: #### C BC, ANEU, CMP, URIC, GFR, PBNP, ADIFF ####[address] [place], [place] [address] Bili Total 0.4 mg/dL Normal 0.2-1.0 [facility] ([place] Comment on above: Result Comment: Use of this assay is not recommended for patients undergoing treatment with eltrombopag due to the potential for falsely elevated results. Performed By: #### C BC, ANEU, CMP, URIC, GFR, PBNP, ADIFF ####[address] [place], [place] [address] BUN/Creatinine Ratio 36 ratio High 7-27 [facility] ([place] Comment on above: Performed By: #### C BC, ANEU, CMP, URIC, GFR, PBNP, ADIFF ####[address] [place], [place] [address] Calcium [Mass/Vol] 9.3 mg/dL Normal 8.4-10.2 [facility] ([place] Comment on above: Performed By: #### C BC, ANEU, CMP, URIC, GFR, PBNP, ADIFF ####[address] [place], [place] [address] Chloride [Moles/Vol] 106 mmol/L Normal 98-107 [facility] ([place] Comment on above: Performed By: #### C BC, ANEU, CMP, URIC, GFR, PBNP, ADIFF ####[address] [place], [place] [address] CO2 [Moles/Vol] 38 mmol/L High 23-31 [facility] [place] Comment on above: Performed By: #### C BC, ANEU, CMP, URIC, GFR, PBNP, ADIFF ####[address] [place], [place] [address] Creatinine [Mass/Vol] 1.81 mg/dL High 0.70-1.30 [facility] ([place] Comment on above: Performed By: #### C BC, ANEU, CMP, URIC, GFR, PBNP, ADIFF ####[address] [place], [place] [address] Electrolyte Balance 1.0 mEq/L Low 4.0-15.0 [facility] [place] Comment on above: Performed By: #### C BC, ANEU, CMP, URIC, GFR, PBNP, ADIFF ####[address] [place], [place] [address] Globulin 3.8 G/dL Normal [facility] ([place] Comment on above: Performed By: #### C BC, ANEU, CMP, URIC, GFR, PBNP, ADIFF ####[address] [place], [place] [address] Glucose [Mass/Vol] 108 mg/dL Normal 83-110 [facility] ([place] Comment on above: Performed By: #### C BC, ANEU, CMP, URIC, GFR, PBNP, ADIFF ####[address] [place], [place] [address] Potassium [Moles/Vol] 5.0 mmol/L Normal 3.5-5.1 [facility] ([place] Comment on above: Performed By: #### C BC, ANEU, CMP, URIC, GFR, PBNP, ADIFF ####[address] [place], [place] [address] Sodium [Moles/Vol] 145 mmol/L Normal 136-145 [facility] ([place] Comment on above: Performed By: #### C BC, ANEU, CMP, URIC, GFR, PBNP, ADIFF ####[address] [place], [place] [address] Total Protein 7.1 G/dL Normal 6.4-8.2 [facility] [place] Comment on above: Performed By: #### C BC, ANEU, CMP, URIC, GFR, PBNP, ADIFF ####[address] [place], [place] [address] Urea nitrogen [Mass/Vol] 65 mg/dL High 7-18 [facility] ([place] Comment on above: Performed By: #### C BC, ANEU, CMP, URIC, GFR, PBNP, ADIFF ####[address] [place], [place] [address] PBNPon 10-19-2022 Natriuretic peptide B (Bld) [Mass/Vol] 750 pg/mL High 0-450 [facility] ([place] Comment on above: Result Comment: NT-p roBNP results of less than 300 pg/mL effectivelyrules out acute congestive heart failure with 99% negative predictive value. Performed By: #### C BC, ANEU, CMP, URIC, GFR, PBNP, ADIFF ####[id number] [place], [place] [address] URICon 10-19-2022 Uric Acid Lvl 9.4 mg/dL High 3.5-7.2 [facility] ([place] Comment on above: Performed By: #### C BC, ANEU, CMP, URIC, GFR, PBNP, ADIFF ####[address] [place], [place] [address] LABORATORYOrdered By: SYSTEM SYSTEM on 06-16-2022 Albumin [...] [facility] Glucose [Mass/Vol] 169 mg/dL 74-106 [facility] Comment on above: Fasting Glucose resu lt greater than or equal to 126 mg/dL suggests DIABETES MELLITUS per A.D.A. criteria. Potassium [Moles/Vol] 4.1 mmol/L 3.5-5.1 [facility] Sodium [Moles/Vol] 139 mmol/L 136-145 [facility] Glucose Glucometer (BldC) [M ass/Vol]Ordered By: Dr. Anders on 05-26-2022 Glucose [Mass/Vol] 156 mg/dL 74-106 [facility] Comment on above: MANAGEMENT OF PATIEN T CARE PER NURSING PROTOCOL Laboratory - Chemistry and C hemistry - challengeOrdered By: Dr. Anders on 05-26-2022 CO2 [Moles/Vol] 31.0 mmol/L 21.0-32.0 [facility] Urea nitrogen/Creatinine [Mass ratio] 39.6 mg/mg 10-20 [facility] No Panel InformationOrdered By: Dr. Anders on 05-26-2022 Estimated Creatinine Clearance Calc 29.31 ml/min [facility] Estimated GFR (MDRD) Amer 50 mL/min >60 [facility] Comment on above: GFR Calc Estimated GFR (MDRD) Non-Af Amer 41 mL/min >60 [facility] Comment on above: Non- GFR Calc Serum or plasma calcium elmira urement (mass/volume)Ordered By: Dr. Anders on 05-26-2022 Calcium [Mass/Vol] 9.5 mg/dL 8.5-10.1 [facility] Serum or plasma creatinine m easurement (mass/volume)Ordered By: Dr. Anders on 05-26-2022 Creatinine [Mass/Vol] 1.69 mg/dL 0.70-1.30 [facility] Comment on above: The validity of the calculated GFR & GFRAA in patients over 70 years has not been determined. Clinical correlation is essential. Serum or plasma urea nitroge n measurement (mass/volume)Ordered By: Dr. Anders on 05-26-2022 Urea nitrogen [Mass/Vol] 67 mg/dL 7-18 [facility] Thin prep Papanicolaou smear with manual screeningOrdered By: Dr. Anders on 05-26-2022 Thin prep Papanicolaou smear with manual screening 10 5-15 [facility] Absolute lymphocyte countOrd ered By: Dr. Pardo on 05-25-2022 Lymphocytes Auto (Unsp spec) [#/Vol] 1.47 10*3/uL 0.83-4.51 [facility] Basophil percentageOrdered B y: Dr. Pardo on 05-25-2022 Basophils/100 WBC (Bld) 0.3 % 0-1 [facility] Bilirubin [Mass/Vol] 1.20 mg/dL 0.20-1.00 [facility] Comment on above: For patients on eltr ombopag therapy, use of Dimension [place] TBIL is not recommended. Eosinophils/100 WBC (Bld) 1.7 % 0-5 [facility] Neutrophils (Bld) [#/Vol] 9.2 10*3/uL 2.0-7.7 [facility] Neutrophils/100 WBC (Bld) 78.7 % 47-70 [facility] Protein [Mass/Vol] 6.9 g/dL 6.4-8.2 [facility] WBC (Bld) [#/Vol] 11.7 10*3/uL 4.4-11.0 [facility] Blood erythrocytes count (nu mber/volume)Ordered By: Dr. Pardo on 05-25-2022 RBC (Bld) [#/Vol] 3.00 10*6/uL 4.6-6.2 [facility] Blood hemoglobin measurement (mass/volume)Ordered By: Dr. Pardo on 05-25-2022 Hemoglobin (Bld) [Mass/Vol] 9.3 g/dL 13.0-16.5 [facility] Blood lymphocytes/100 leukoc ytesOrdered By: Dr. Pardo on 05-25-2022 Lymphocytes/100 WBC (Bld) 12.6 % 19-41 [facility] Blood monocytes/100 leukocyt esOrdered By: Dr. Pardo on 05-25-2022 Monocytes/100 WBC (Bld) 6.4 % 0-10 [facility] Blood platelet mean volumeOr dered By: Dr. Pardo on 05-25-2022 Platelet mean volume (Bld) [Entitic vol] 10.8 fL 6.2-12.0 [facility] Determination of erythrocyte mean corpuscular volume (MCV)Ordered By: Dr. Pardo on 05-25-2022 MCV (RBC) [Entitic vol] 95.7 fL 80-94 [facility] Hematocrit Auto (Bld) [Volum e fraction]Ordered By: Dr. Pardo on 05-25-2022 Hematocrit (Bld) [Volume fraction] 28.7 % 40-54 [facility] Laboratory - Chemistry and C hemistry - challengeOrdered By: Dr. Pardo on 05-25-2022 ALP [Catalytic activity/Vol] 68 U/L 45-117 [facility] ALT [Catalytic activity/Vol] 20 U/L 16-61 [facility] Globulin (S) [Mass/Vol] 4.0 g/dL 2.2-4.2 [facility] Magnesium [Mass/Vol] 1.5 mg/dL 1.6-2.6 [facility] Laboratory - Hematology and Cell countsOrdered By: Dr. Pardo on 05-25-2022 Erythrocyte distribution width (RBC) [Entitic vol] 45.5 fL 35.1-43.9 [facility] Erythrocyte distribution width (RBC) [Ratio] 13.3 % 11.6-14.6 [facility] Immature granulocytes/100 WBC (Bld) 0.300 % 0.0-0.9 [facility] Comment on above: IG% - Immature Granu locytes (promyelocytes, myelocytes and metamyelocytes) > 1% indicates that a LEFT SHIFT is Present. MCH (RBC) [Entitic mass] 31.0 pg 27.0-32.0 [facility] Nucleated RBC/100 WBC (Bld) [Ratio] 0 % 0-5 [facility] MCHC Auto (RBC) [Mass/Vol]Or dered By: Dr. Pardo on 05-25-2022 MCHC (RBC) [Mass/Vol] 32.4 g/dL 32-36 [facility] No Panel InformationOrdered By: Dr. Pardo on 05-25-2022 Thyroid Stimulating Hormone (TSH) 2.10 uIU/mL 0.358-3.74 [facility] Platelets bldOrdered By: Dr. Pardo on 05-25-2022 Platelets (Bld) [#/Vol] 119 10*3/uL 150-450 [facility] Serum or plasma albumin elmira urement (mass/volume)Ordered By: Dr. Pardo on 05-25-2022 Albumin [Mass/Vol] 2.9 g/dL 3.2-5.0 [facility] Serum or plasma albumin/glob ulin mass ratioOrdered By: Dr. Pardo on 05-25-2022 Albumin/Globulin [Mass ratio] 0.7 {ratio} 0.9-2.4 [facility] Thin prep Papanicolaou smear with manual screeningOrdered By: Dr. Pardo on 05-25-2022 Thin prep Papanicolaou smear with manual screening 15 U/L 15-37 [facility] Absolute lymphocyte countOrd ered By: Dr. Edward on 05-24-2022 Lymphocytes Auto (Unsp spec) [#/Vol] 1.14 10*3/uL 0.83-4.51 [facility] Basophil percentageOrdered B y: Dr. Edward on 05-24-2022 Basophils/100 WBC (Bld) 0.4 % 0-1 [facility] Chloride [Moles/Vol] 106 mmol/L 98-107 [facility] Eosinophils/100 WBC (Bld) 2.9 % 0-5 [facility] Glucose [Mass/Vol] 178 mg/dL 74-106 [facility] Comment on above: Fasting Glucose resu lt greater than or equal to 126 mg/dL suggests DIABETES MELLITUS per A.D.A. criteria. Neutrophils (Bld) [#/Vol] 8.4 10*3/uL 2.0-7.7 [facility] Neutrophils/100 WBC (Bld) 80.1 % 47-70 [facility] Potassium [Moles/Vol] 4.3 mmol/L 3.5-5.1 [facility] Sodium [Moles/Vol] 144 mmol/L 136-145 [facility] WBC (Bld) [#/Vol] 10.4 10*3/uL 4.4-11.0 [facility] Blood erythrocytes count (nu mber/volume)Ordered By: Dr. Edward on 05-24-2022 RBC (Bld) [#/Vol] 3.21 10*6/uL 4.6-6.2 [facility] Blood hemoglobin measurement (mass/volume)Ordered By: Dr. Edward on 05-24-2022 Hemoglobin (Bld) [Mass/Vol] 9.7 g/dL 13.0-16.5 [facility] Blood lymphocytes/100 leukoc ytesOrdered By: Dr. Edward on 05-24-2022 Lymphocytes/100 WBC (Bld) 10.9 % 19-41 [facility] Blood monocytes/100 leukocyt esOrdered By: Dr. Edward on 05-24-2022 Monocytes/100 WBC (Bld) 5.4 % 0-10 [facility] Blood platelet mean volumeOr dered By: Dr. Edward on 05-24-2022 Platelet mean volume (Bld) [Entitic vol] 10.8 fL 6.2-12.0 [facility] Determination of erythrocyte mean corpuscular volume (MCV)Ordered By: Dr. Edward on 05-24-2022 MCV (RBC) [Entitic vol] 96.3 fL 80-94 [facility] Hematocrit Auto (Bld) [Volum e fraction]Ordered By: Dr. Edward on 05-24-2022 Hematocrit (Bld) [Volume fraction] 30.9 % 40-54 [facility] Influenza virus A and B and SARS-CoV-2 (COVID-19) Ag panel - Upper respiratory specimOrdered By: Dr. Pardo on 05-24-2022 SARS-CoV-2 (COVID-19) RNA JOSH+probe Ql (Resp) [facility] Laboratory - Chemistry and C hemistry - challengeOrdered By: Dr. Edward on 05-24-2022 CO2 [Moles/Vol] 32.0 mmol/L 21.0-32.0 [facility] Natriuretic peptide B (Bld) [Mass/Vol] 200.1 pg/mL 0-100 [facility] Urea nitrogen/Creatinine [Mass ratio] 30.6 mg/mg 10-20 [facility] Laboratory - Hematology and Cell countsOrdered By: Dr. Edward on 05-24-2022 Erythrocyte distribution width (RBC) [Entitic vol] 45.9 fL 35.1-43.9 [facility] Erythrocyte distribution width (RBC) [Ratio] 13.3 % 11.6-14.6 [facility] Immature granulocytes/100 WBC (Bld) 0.300 % 0.0-0.9 [facility] Comment on above: IG% - Immature Granu locytes (promyelocytes, myelocytes and metamyelocytes) > 1% indicates that a LEFT SHIFT is Present. MCH (RBC) [Entitic mass] 30.2 pg 27.0-32.0 [facility] Nucleated RBC/100 WBC (Bld) [Ratio] 0 % 0-5 [facility] Laboratory - Microbiology an d Antimicrobial susceptibilityOrdered By: Dr. Pardo on 05-24-2022 Respiratory pathogens DNA and RNA 12b panel JOSH+probe (Unsp spec) [facility] [Mass/Vol]Or dered By: Dr. Edward on 05-24-2022 MCHC (RBC) [Mass/Vol] 31.4 g/dL 32-36 [facility] No Panel InformationOrdered By: Dr. Pardo on 05-24-2022 Troponin I High Sensitivity 106 pg/mL 3.0-78.0 [facility] Comment on above: Please Note: New Arti t Units and Gender Specific Reference Ranges. For more information see Policy Stat Procedure [place] High Sensitivity Troponin (TNIH) and attachments. No Panel InformationOrdered By: Dr. Edward on 05-24-2022 Troponin I High Sensitivity 56 pg/mL 3.0-78.0 [facility] Comment on above: Please Note: New Arti t Units and Gender Specific Reference Ranges. For more information see Policy Stat Procedure [place] High Sensitivity Troponin (TNIH) and attachments. Estimated Creatinine Clearance Calc 33.70 ml/min [facility] Estimated GFR (MDRD) Amer 59 mL/min >60 [facility] Comment on above: GFR Calc Estimated GFR (MDRD) Non-Af Amer 49 mL/min >60 [facility] Comment on above: Non- GFR Calc Platelets bldOrdered By: Dr. Edward on 05-24-2022 Platelets (Bld) [#/Vol] 123 10*3/uL 150-450 [facility] Serum or plasma calcium elmira urement (mass/volume)Ordered By: Dr. Edward on 05-24-2022 Calcium [Mass/Vol] 9.5 mg/dL 8.5-10.1 [facility] Serum or plasma creatinine m easurement (mass/volume)Ordered By: Dr. Edward on 05-24-2022 Creatinine [Mass/Vol] 1.47 mg/dL 0.70-1.30 [facility] Comment on above: The validity of the calculated GFR & GFRAA in patients over 70 years has not been determined. Clinical correlation is essential. Serum or plasma urea nitroge n measurement (mass/volume)Ordered By: Dr. Edward on 05-24-2022 Urea nitrogen [Mass/Vol] 45 mg/dL 7-18 [facility] Thin prep Papanicolaou smear with manual screeningOrdered By: Dr. Edward on 05-24-2022 Thin prep Papanicolaou smear with manual screening 6 - [facility] Absolute lymphocyte countOrd ered By: Dr. Anders on 04-13-2022 Lymphocytes Auto (Unsp spec) [#/Vol] 1.63 10*3/uL 0.83-4.51 [facility] Basophil percentageOrdered B y: Dr. Anders on 04-13-2022 Basophils/100 WBC (Bld) 0.5 % 0-1 [facility] Chloride [Moles/Vol] 100 mmol/L 98-107 [facility] Eosinophils/100 WBC (Bld) 5.2 % 0-5 [facility] Glucose [Mass/Vol] 133 mg/dL 74-106 [facility] Comment on above: Fasting Glucose resu lt greater than or equal to 126 mg/dL suggests DIABETES MELLITUS per A.D.A. criteria. Neutrophils (Bld) [#/Vol] 3.1 10*3/uL 2.0-7.7 [facility] Neutrophils/100 WBC (Bld) 56.0 % 47-70 [facility] Potassium [Moles/Vol] 3.9 mmol/L 3.5-5.1 [facility] Sodium [Moles/Vol] 143 mmol/L 136-145 [facility] WBC (Bld) [#/Vol] 5.6 10*3/uL 4.4-11.0 [facility] Blood erythrocytes count (nu mber/volume)Ordered By: Dr. Anders on 04-13-2022 RBC (Bld) [#/Vol] 3.65 10*6/uL 4.6-6.2 [facility] Blood hemoglobin measurement (mass/volume)Ordered By: Dr. Anders on 04-13-2022 Hemoglobin (Bld) [Mass/Vol] 11.0 g/dL 13.0-16.5 [facility] Blood lymphocytes/100 leukoc ytesOrdered By: Dr. Anders on 04-13-2022 Lymphocytes/100 WBC (Bld) 29.3 % 19-41 [facility] Blood monocytes/100 leukocyt esOrdered By: Dr. Anders on 04-13-2022 Monocytes/100 WBC (Bld) 8.8 % 0-10 [facility] Blood platelet mean volumeOr dered By: Dr. Anders on 04-13-2022 Platelet mean volume (Bld) [Entitic vol] 10.7 fL 6.2-12.0 [facility] Determination of erythrocyte mean corpuscular volume (MCV)Ordered By: Dr. Anders on 04-13-2022 MCV (RBC) [Entitic vol] 92.1 fL 80-94 [facility] Glucose Glucometer (dC) [M ass/Vol]Ordered By: Dr. Anders on 04-13-2022 Glucose [Mass/Vol] 184 mg/dL 74-106 [facility] Comment on above: MANAGEMENT OF PATIEN T CARE PER NURSING PROTOCOL Hematocrit Auto (Bld) [Volum e fraction]Ordered By: Dr. Anders on 04-13-2022 Hematocrit (Bld) [Volume fraction] 33.6 % 40-54 [facility] - Chemistry and C hemistry - challengeOrdered By: Dr. Anders on 04-13-2022 CO2 [Moles/Vol] 35.0 mmol/L 21.0-32.0 [facility] Urea nitrogen/Creatinine [Mass ratio] 24.5 mg/mg 10-20 [facility] - Hematology and Cell countsOrdered By: Dr. Anders on 04-13-2022 Erythrocyte distribution width (RBC) [Entitic vol] 44.9 fL 35.1-43.9 [facility] Erythrocyte distribution width (RBC) [Ratio] 13.2 % 11.6-14.6 [facility] Immature granulocytes/100 WBC (Bld) 0.200 % 0.0-0.9 [facility] Comment on above: IG% - Immature Granu locytes (promyelocytes, myelocytes and metamyelocytes) > 1% indicates that a LEFT SHIFT is Present. MCH (RBC) [Entitic mass] 30.1 pg 27.0-32.0 [facility] Nucleated RBC/100 WBC (Bld) [Ratio] 0 % 0-5 [facility] MCHC Auto (RBC) [Mass/Vol]Or dered By: Dr. Anders on 04-13-2022 MCHC (RBC) [Mass/Vol] 32.7 g/dL 32-36 [facility] No Panel InformationOrdered By: Dr. Anders on 04-13-2022 Estimated Creatinine Clearance Calc 32.81 ml/min [facility] Estimated GFR (MDRD) Amer 57 mL/min >60 [facility] Comment on above: GFR Calc Estimated GFR (MDRD) Non-Af Amer 47 mL/min >60 [facility] Comment on above: Non- GFR Calc Platelets bldOrdered By: Dr. Anders on 04-13-2022 Platelets (Bld) [#/Vol] 125 10*3/uL 150-450 [facility] Serum or plasma calcium elmira urement (mass/volume)Ordered By: Dr. Anders on 04-13-2022 Calcium [Mass/Vol] 9.9 mg/dL 8.5-10.1 [facility] Serum or plasma creatinine m easurement (mass/volume)Ordered By: Dr. Anders on 04-13-2022 Creatinine [Mass/Vol] 1.51 mg/dL 0.70-1.30 [facility] Comment on above: The validity of the calculated GFR & GFRAA in patients over 70 years has not been determined. Clinical correlation is essential. Serum or plasma urea nitroge n measurement (mass/volume)Ordered By: Dr. Anders on 04-13-2022 Urea nitrogen [Mass/Vol] 37 mg/dL 7-18 [facility] Thin prep Papanicolaou smear with manual screeningOrdered By: Dr. Anders on 04-13-2022 Thin prep Papanicolaou smear with manual screening 8 5-15 [facility] Basophil percentageOrdered B y: Dr. Anders on 04-12-2022 Bilirubin [Mass/Vol] 0.60 mg/dL 0.20-1.00 [facility] Comment on above: For patients on eltr ombopag therapy, use of Dimension [place] TBIL is not recommended. Protein [Mass/Vol] 6.6 g/dL 6.4-8.2 [facility] - Chemistry and C hemistry - challengeOrdered By: Dr. Anders on 04-12-2022 ALP [Catalytic activity/Vol] 77 U/L 45-117 [facility] ALT [Catalytic activity/Vol] 21 U/L 16-61 [facility] Globulin (S) [Mass/Vol] 3.6 g/dL 2.2-4.2 [facility] Serum or plasma albumin elmira urement (mass/volume)Ordered By: Dr. Anders on 04-12-2022 Albumin [Mass/Vol] 3.0 g/dL 3.2-5.0 [facility] Serum or plasma albumin/glob ulin mass ratioOrdered By: Dr. Anders on 04-12-2022 Albumin/Globulin [Mass ratio] 0.8 {ratio} 0.9-2.4 [facility] Thin prep Papanicolaou smear with manual screeningOrdered By: Dr. Anders on 04-12-2022 Thin prep Papanicolaou smear with manual screening 20 U/L 15-37 [facility] Absolute lymphocyte countOrd ered By: Dr. Yan on 04-11-2022 Lymphocytes Auto (Unsp spec) [#/Vol] 1.04 10*3/uL 0.83-4.51 [facility] Basophil percentageOrdered B y: Dr. Yan on 04-11-2022 Basophils/100 WBC (Bld) 0.4 % 0-1 [facility] Chloride [Moles/Vol] 110 mmol/L 98-107 [facility] Eosinophils/100 WBC (Bld) 4.3 % 0-5 [facility] Glucose [Mass/Vol] 160 mg/dL 74-106 [facility] Comment on above: Fasting Glucose resu lt greater than or equal to 126 mg/dL suggests DIABETES MELLITUS per A.D.A. criteria. Neutrophils (Bld) [#/Vol] 3.1 10*3/uL 2.0-7.7 [facility] Neutrophils/100 WBC (Bld) 66.7 % 47-70 [facility] Potassium [Moles/Vol] 4.7 mmol/L 3.5-5.1 [facility] Sodium [Moles/Vol] 145 mmol/L 136-145 [facility] WBC (Bld) [#/Vol] 4.6 10*3/uL 4.4-11.0 [facility] Blood erythrocytes count (nu mber/volume)Ordered By: Dr. Yan on 04-11-2022 RBC (Bld) [#/Vol] 3.31 10*6/uL 4.6-6.2 [facility] Blood hemoglobin measurement (mass/volume)Ordered By: Dr. Yan on 04-11-2022 Hemoglobin (Bld) [Mass/Vol] 9.8 g/dL 13.0-16.5 [facility] Blood lymphocytes/100 leukoc ytesOrdered By: Dr. Yan on 04-11-2022 Lymphocytes/100 WBC (Bld) 22.4 % 19-41 [facility] Blood monocytes/100 leukocyt esOrdered By: Dr. Yan on 04-11-2022 Monocytes/100 WBC (Bld) 6.0 % 0-10 [facility] Blood platelet mean volumeOr dered By: Dr. Yan on 04-11-2022 Platelet mean volume (Bld) [Entitic vol] 11.2 fL 6.2-12.0 [facility] Determination of erythrocyte mean corpuscular volume (MCV)Ordered By: Dr. Yan on 04-11-2022 MCV (RBC) [Entitic vol] 96.4 fL 80-94 [facility] Hematocrit Auto (Bld) [Volum e fraction]Ordered By: Dr. Yan on 04-11-2022 Hematocrit (Bld) [Volume fraction] 31.9 % 40-54 [facility] - Chemistry and C hemistry - challengeOrdered By: Dr. Yan on 04-11-2022 CO2 [Moles/Vol] 30.0 mmol/L 21.0-32.0 [facility] Natriuretic peptide B (Bld) [Mass/Vol] 311.3 pg/mL 0-100 [facility] Urea nitrogen/Creatinine [Mass ratio] 17.7 mg/mg 10-20 [facility] - Hematology and Cell countsOrdered By: Dr. Yan on 04-11-2022 Erythrocyte distribution width (RBC) [Entitic vol] 48.2 fL 35.1-43.9 [facility] Erythrocyte distribution width (RBC) [Ratio] 13.6 % 11.6-14.6 [facility] Immature granulocytes/100 WBC (Bld) 0.200 % 0.0-0.9 [facility] Comment on above: IG% - Immature Granu locytes (promyelocytes, myelocytes and metamyelocytes) > 1% indicates that a LEFT SHIFT is Present. MCH (RBC) [Entitic mass] 29.6 pg 27.0-32.0 [facility] Nucleated RBC/100 WBC (Bld) [Ratio] 0 % 0-5 [facility] MCHC Auto (RBC) [Mass/Vol]Or dered By: Dr. Yan on 04-11-2022 MCHC (RBC) [Mass/Vol] 30.7 g/dL 32-36 [facility] No Panel InformationOrdered By: Dr. Yan on 04-11-2022 Troponin I High Sensitivity 27 pg/mL 3.0-78.0 [facility] Comment on above: Please Note: New Arti t Units and Gender Specific Reference Ranges. For more information see Policy Stat Procedure [place] High Sensitivity Troponin (TNIH) and attachments. Estimated Creatinine Clearance Calc 35.14 ml/min [facility] Estimated GFR (MDRD) Amer 62 mL/min >60 [facility] Comment on above: GFR Calc Estimated GFR (MDRD) Non-Af Amer 51 mL/min >60 [facility] Comment on above: Non- GFR Calc Platelets bldOrdered By: Dr. Yan on 04-11-2022 Platelets (Bld) [#/Vol] 108 10*3/uL 150-450 [facility] Serum or plasma calcium elmira urement (mass/volume)Ordered By: Dr. Yan on 04-11-2022 Calcium [Mass/Vol] 9.1 mg/dL 8.5-10.1 [facility] Serum or plasma creatinine m easurement (mass/volume)Ordered By: Dr. Yan on 04-11-2022 Creatinine [Mass/Vol] 1.41 mg/dL 0.70-1.30 [facility] Comment on above: The validity of the calculated GFR & GFRAA in patients over 70 years has not been determined. Clinical correlation is essential. Serum or plasma urea nitroge n measurement (mass/volume)Ordered By: Dr. Yan on 04-11-2022 Urea nitrogen [Mass/Vol] 25 mg/dL 7-18 [facility] Thin prep Papanicolaou smear with manual screeningOrdered By: Dr. Yan on 04-11-2022 Thin prep Papanicolaou smear with manual screening 5 5-15 [facility] LABORATORYOrdered By: SYSTEM SYSTEM on 03-22-2022 [...] Auto (Unsp spec) [#/Vol] 1.66 10*3/uL 0.83-4.51 [facility] Basophil percentageOrdered B y: Dr. Blunt on 03-16-2022 Basophils/100 WBC (Bld) 0.5 % 0-1 [facility] Chloride [Moles/Vol] 102 mmol/L 98-107 [facility] Eosinophils/100 WBC (Bld) 4.6 % 0-5 [facility] Glucose [Mass/Vol] 141 mg/dL 74-106 [facility] Comment on above: Fasting Glucose resu lt greater than or equal to 126 mg/dL suggests DIABETES MELLITUS per A.D.A. criteria. Neutrophils (Bld) [#/Vol] 3.8 10*3/uL 2.0-7.7 [facility] Neutrophils/100 WBC (Bld) 59.6 % 47-70 [facility] Potassium [Moles/Vol] 4.1 mmol/L 3.5-5.1 [facility] Sodium [Moles/Vol] 144 mmol/L 136-145 [facility] WBC (Bld) [#/Vol] 6.4 10*3/uL 4.4-11.0 [facility] Blood erythrocytes count (nu mber/volume)Ordered By: Dr. Blunt on 03-16-2022 RBC (Bld) [#/Vol] 3.44 10*6/uL 4.6-6.2 [facility] Blood hemoglobin measurement (mass/volume)Ordered By: Dr. Blunt on 03-16-2022 Hemoglobin (Bld) [Mass/Vol] 10.3 g/dL 13.0-16.5 [facility] Blood lymphocytes/100 leukoc ytesOrdered By: Dr. Blunt on 03-16-2022 Lymphocytes/100 WBC (Bld) 26.1 % 19-41 [facility] Blood monocytes/100 leukocyt esOrdered By: Dr. Blunt on 03-16-2022 Monocytes/100 WBC (Bld) 9.0 % 0-10 [facility] Blood platelet mean volumeOr dered By: Dr. Blunt on 03-16-2022 Platelet mean volume (Bld) [Entitic vol] 11.8 fL 6.2-12.0 [facility] Determination of erythrocyte mean corpuscular volume (MCV)Ordered By: Dr. Blunt on 03-16-2022 MCV (RBC) [Entitic vol] 95.6 fL 80-94 [facility] Glucose Glucometer (BldC) [M ass/Vol]Ordered By: Dr. Anders on 03-16-2022 Glucose [Mass/Vol] 137 mg/dL 74-106 [facility] Comment on above: MANAGEMENT OF PATIEN T CARE PER NURSING PROTOCOL Hematocrit Auto (Bld) [Volum e fraction]Ordered By: Dr. Blunt on 03-16-2022 Hematocrit (Bld) [Volume fraction] 32.9 % 40-54 [facility] INR in Blood by Coagulation assayOrdered By: Dr. Blunt on 03-16-2022 INR Coag (Bld) [Relative time] 1.2 {INR} [facility] - Chemistry and C hemistry - challengeOrdered By: Dr. Blunt on 03-16-2022 CO2 [Moles/Vol] 35.0 mmol/L 21.0-32.0 [facility] Urea nitrogen/Creatinine [Mass ratio] 34.1 mg/mg 10-20 [facility] - CoagulationOrde red By: Dr. Blunt on 03-16-2022 aPTT Coag (Bld) [Time] 40.9 s 24.1-36.2 [facility] PT Coag (PPP) [Time] 14.5 s 11.7-14.9 [facility] Laboratory - Hematology and Cell countsOrdered By: Dr. Blunt on 03-16-2022 Erythrocyte distribution width (RBC) [Entitic vol] 50.6 fL 35.1-43.9 [facility] Erythrocyte distribution width (RBC) [Ratio] 14.6 % 11.6-14.6 [facility] Immature granulocytes/100 WBC (Bld) 0.200 % 0.0-0.9 [facility] Comment on above: IG% - Immature Granu locytes (promyelocytes, myelocytes and metamyelocytes) > 1% indicates that a LEFT SHIFT is Present. MCH (RBC) [Entitic mass] 29.9 pg 27.0-32.0 [facility] Nucleated RBC/100 WBC (Bld) [Ratio] 0.3 % 0-5 [facility] MCHC Auto (RBC) [Mass/Vol]Or dered By: Dr. Blunt on 03-16-2022 MCHC (RBC) [Mass/Vol] 31.3 g/dL 32-36 [facility] No Panel InformationOrdered By: Dr. Blunt on 03-16-2022 Estimated Creatinine Clearance Calc 24.17 ml/min [facility] Estimated GFR (MDRD) Amer 40 mL/min >60 [facility] Comment on above: GFR Calc Estimated GFR (MDRD) Non-Af Amer 33 mL/min >60 [facility] Comment on above: Non- GFR Calc Platelets bldOrdered By: Dr. Blunt on 03-16-2022 Platelets (Bld) [#/Vol] 116 10*3/uL 150-450 [facility] Serum or plasma calcium elmira urement (mass/volume)Ordered By: Dr. Blunt on 03-16-2022 Calcium [Mass/Vol] 9.0 mg/dL 8.5-10.1 [facility] Serum or plasma creatinine m easurement (mass/volume)Ordered By: Dr. Blunt on 03-16-2022 Creatinine [Mass/Vol] 2.05 mg/dL 0.70-1.30 [facility] Comment on above: The validity of the calculated GFR & GFRAA in patients over 70 years has not been determined. Clinical correlation is essential. Serum or plasma urea nitroge n measurement (mass/volume)Ordered By: Dr. Blunt on 03-16-2022 Urea nitrogen [Mass/Vol] 70 mg/dL 7-18 [facility] Thin prep Papanicolaou smear with manual screeningOrdered By: Dr. Blunt on 03-16-2022 Thin prep Papanicolaou smear with manual screening 7 5-15 [facility] Influenza virus A and B and SARS-CoV-2 (COVID-19) Ag panel - Upper respiratory specimOrdered By: Dr. Lester on 03-12-2022 SARS-CoV-2 (COVID-19) RNA JOSH+probe Ql (Resp) [facility] - Chemistry and C hemistry - challengeOrdered By: Dr. Lester on 03-12-2022 Natriuretic peptide B (Bld) [Mass/Vol] 285.7 pg/mL 0-100 [facility] No Panel InformationOrdered By: Dr. Rodriguez on 03-12-2022 Troponin I High Sensitivity 640 pg/mL 3.0-78.0 [facility] Comment on above: Critical Result(s) C alled at: 10:23:02 03/12/2022 by: Didier Xiao to [place]. Results read back by same. Please Note: New Test Units and Gender Specific Reference Ranges. For more information see Policy Stat Procedure [place] High Sensitivity Troponin (TNIH) and attachments. LABORATORYOrdered [...] 12-16-2021 SARS-CoV-2 (COVID-19) Ag IA.rapid Ql (Resp) [facility] Glucose Glucometer (BldC) [M ass/Vol]Ordered By: Dr. Alcantara on 12-16-2021 Glucose [Mass/Vol] 207 mg/dL 74-106 [facility] Comment on above: MANAGEMENT OF PATIEN T CARE PER NURSING PROTOCOL Absolute lymphocyte countOrd ered By: Dr. Alcantara on 12-15-2021 Lymphocytes Auto (Unsp spec) [#/Vol] 1.50 10*3/uL 0.83-4.51 [facility] Basophil percentageOrdered B y: Dr. Alcantara on 12-15-2021 Basophils/100 WBC (Bld) 0.1 % 0-1 [facility] Chloride [Moles/Vol] 108 mmol/L 98-107 [facility] Eosinophils/100 WBC (Bld) 2.9 % 0-5 [facility] Glucose [Mass/Vol] 170 mg/dL 74-106 [facility] Comment on above: Fasting Glucose resu lt greater than or equal to 126 mg/dL suggests DIABETES MELLITUS per A.D.A. criteria. Neutrophils (Bld) [#/Vol] 6.5 10*3/uL 2.0-7.7 [facility] Neutrophils/100 WBC (Bld) 71.9 % 47-70 [facility] Potassium [Moles/Vol] 4.2 mmol/L 3.5-5.1 [facility] Sodium [Moles/Vol] 140 mmol/L 136-145 [facility] WBC (Bld) [#/Vol] 9.0 10*3/uL 4.4-11.0 [facility] Blood erythrocytes count (nu mber/volume)Ordered By: Dr. Alcantara on 12-15-2021 RBC (Bld) [#/Vol] 3.61 10*6/uL 4.6-6.2 [facility] Blood hemoglobin measurement (mass/volume)Ordered By: Dr. Alcantara on 12-15-2021 Hemoglobin (Bld) [Mass/Vol] 11.3 g/dL 13.0-16.5 [facility] Blood lymphocytes/100 leukoc ytesOrdered By: Dr. Alcantara on 12-15-2021 Lymphocytes/100 WBC (Bld) 16.7 % 19-41 [facility] Blood monocytes/100 leukocyt esOrdered By: Dr. Alcantara on 12-15-2021 Monocytes/100 WBC (Bld) 6.7 % 0-10 [facility] Blood platelet mean volumeOr dered By: Dr. Alcantara on 12-15-2021 Platelet mean volume (Bld) [Entitic vol] 10.3 fL 6.2-12.0 [facility] Determination of erythrocyte mean corpuscular volume (MCV)Ordered By: Dr. Alcantara on 12-15-2021 MCV (RBC) [Entitic vol] 92.5 fL 80-94 [facility] Hematocrit Auto (Bld) [Volum e fraction]Ordered By: Dr. Alcantara on 12-15-2021 Hematocrit (Bld) [Volume fraction] 33.4 % 40-54 [facility] - Chemistry and C hemistry - challengeOrdered By: Dr. Alcantara on 12-15-2021 CO2 [Moles/Vol] 27.0 mmol/L 21.0-32.0 [facility] Natriuretic peptide B (Bld) [Mass/Vol] 116.1 pg/mL 0-100 [facility] Urea nitrogen/Creatinine [Mass ratio] 44.6 mg/mg 10-20 [facility] - Hematology and Cell countsOrdered By: Dr. Alcantara on 12-15-2021 Erythrocyte distribution width (RBC) [Entitic vol] 43.8 fL 35.1-43.9 [facility] Erythrocyte distribution width (RBC) [Ratio] 12.9 % 11.6-14.6 [facility] Immature granulocytes/100 WBC (Bld) 1.700 % 0.0-0.9 [facility] Comment on above: IG% - Immature Granu locytes (promyelocytes, myelocytes and metamyelocytes) > 1% indicates that a LEFT SHIFT is Present. MCH (RBC) [Entitic mass] 31.3 pg 27.0-32.0 [facility] Nucleated RBC/100 WBC (Bld) [Ratio] 0 % 0-5 [facility] MCHC Auto (RBC) [Mass/Vol]Or dered By: Dr. Alcantara on 12-15-2021 MCHC (RBC) [Mass/Vol] 33.8 g/dL 32-36 [facility] No Panel InformationOrdered By: Dr. Alcantara on 12-15-2021 Estimated Creatinine Clearance Calc 38.11 ml/min [facility] Estimated GFR (MDRD) Amer 68 mL/min >60 [facility] Comment on above: GFR Calc Estimated GFR (MDRD) Non-Af Amer 56 mL/min >60 [facility] Comment on above: Non- GFR Calc Thyroid Stimulating Hormone (TSH) 3.74 uIU/mL 0.358-3.74 [facility] Platelets bldOrdered By: Dr. Alcantara on 12-15-2021 Platelets (Bld) [#/Vol] 155 10*3/uL 150-450 [facility] Serum or plasma calcium elmira urement (mass/volume)Ordered By: Dr. Alcantara on 12-15-2021 Calcium [Mass/Vol] 8.8 mg/dL 8.5-10.1 [facility] Serum or plasma creatinine m easurement (mass/volume)Ordered By: Dr. Alcantara on 12-15-2021 Creatinine [Mass/Vol] 1.30 mg/dL 0.70-1.30 [facility] Comment on above: The validity of the calculated GFR & GFRAA in patients over 70 years has not been determined. Clinical correlation is essential. Serum or plasma urea nitroge n measurement (mass/volume)Ordered By: Dr. Alcantara on 12-15-2021 Urea nitrogen [Mass/Vol] 58 mg/dL 7-18 [facility] Thin prep Papanicolaou smear with manual screeningOrdered By: Dr. Alcantara on 12-15-2021 Thin prep Papanicolaou smear with manual screening 5 5-15 [facility] Basophil percentageOrdered B y: Dr. Angel on 12-14-2021 Bilirubin [Mass/Vol] 0.40 mg/dL 0.20-1.00 [facility] Comment on above: For patients on eltr ombopag therapy, use of Dimension [place] TBIL is not recommended. Protein [Mass/Vol] 6.2 g/dL 6.4-8.2 [facility] - Chemistry and C hemistry - challengeOrdered By: Dr. Angel on 12-14-2021 ALP [Catalytic activity/Vol] 76 U/L 45-117 [facility] ALT [Catalytic activity/Vol] 43 U/L 16-61 [facility] Globulin (S) [Mass/Vol] 4.3 g/dL 2.2-4.2 [facility] Serum or plasma albumin elmira urement (mass/volume)Ordered By: Dr. Angel on 12-14-2021 Albumin [Mass/Vol] 1.9 g/dL 3.2-5.0 [facility] Serum or plasma albumin/glob ulin mass ratioOrdered By: Dr. Angel on 12-14-2021 Albumin/Globulin [Mass ratio] 0.4 {ratio} 0.9-2.4 [facility] Thin prep Papanicolaou smear with manual screeningOrdered By: Dr. Angel on 12-14-2021 Thin prep Papanicolaou smear with manual screening 34 U/L 15-37 [facility] Comment on above: Slight Hemolysis, Re sult may be falsely increased. Basophil percentageOrdered B y: Dr. Villanueva on 12-13-2021 Basophil percentage 0 SEEN /hpf 0-5 [facility] Bilirubin Test strip Ql (U)O rdered By: Dr. Villanueva on 12-13-2021 Bilirubin Ql (U) Negative Negative [facility] Erythrocyte sedimentation ra teOrdered By: Dr. Villanueva on 12-13-2021 ESR (Bld) [Velocity] 101 mm/h 0-20 [facility] INR in Blood by Coagulation assayOrdered By: Dr. Angel on 12-13-2021 INR Coag (Bld) [Relative time] 1.2 {INR} [facility] Ketones Test strip Ql (U)Ord ered By: Dr. Villanueva on 12-13-2021 Ketones Ql (U) Negative Negative [facility] - CoagulationOrde red By: Dr. Angel on 12-13-2021 aPTT Coag (Bld) [Time] 26.2 s 24.1-36.2 [facility] PT Coag (PPP) [Time] 14.7 s 11.7-14.9 [facility] Mucus LM Ql (Urine sed)Order ed By: Dr. Villanueva on 12-13-2021 Mucus Ql (Urine sed) 0 SEEN /hpf [facility] Nitrite Test strip Ql (U)Ord ered By: Dr. Villanueva on 12-13-2021 Nitrite Ql (U) Negative Negative [facility] Protein Test strip Ql (U)Ord ered By: Dr. Villanueva on 12-13-2021 Protein Ql (U) 100 mg/dl Negative [facility] Serum or plasma C reactive p rotein measurement (mass/volume)Ordered By: Dr. Villanueva on 12-13-2021 CRP [Mass/Vol] 87.40 mg/L 0.0-3.0 [facility] Comment on above: C-Reactive Protein ( CRP) provides useful information for thediagnosis, therapy and monitoring of inflammatory processesand associated diseases. For the evaluation of Relative Riskfor Cardiovascular Disease, a High Sensitivity CRP (HSCRP)should be ordered. Serum or plasma uric acid me asurement (mass/volume)Ordered By: Dr. Villanueva on 12-13-2021 Urate [Mass/Vol] 9.4 mg/dL 3.5-7.2 [facility] Comment on above: The drugs N-Acetylcy steine and Metamizole may falsely depress this assay. Serum procalcitonin measurem entOrdered By: Dr. Angel on 12-13-2021 Procalcitonin [Mass/Vol] 0.37 ng/mL 0.00-0.09 [facility] Comment on above: A procalcitonin (PCT [...] Ql (Urine sed) 0 SEEN /hpf 0-5 [facility] Urine blood detectionOrdered By: Dr. Villanueva on 12-13-2021 RBC Ql (U) 50 /ul Negative [facility] RBC Ql (U) 0-5 SEEN /hpf 0-5 [facility] Urine clarityOrdered By: Dr. Villanueva on 12-13-2021 Clarity (U) Clear Clear [facility] Urine color determinationOrd ered By: Dr. Villanueva on 12-13-2021 Color (U) Yellow Yellow [facility] Urine glucose detectionOrder ed By: Dr. Villanueva on 12-13-2021 Glucose Ql (U) Normal mg/dl Normal [facility] Urine leukocyte esterase det ection by dipstickOrdered By: Dr. Villanueva on 12-13-2021 Leukocyte esterase Test strip Ql (U) Negative Negative [facility] Urine pHOrdered By: Dr. Villanueva o n 12-13-2021 pH (U) 6.0 [pH] 5.0 - 8.0 [facility] Urine sediment bacteria coun t by microscopy (number/high power field)Ordered By: Dr. Villanueva on 12-13-2021 Bacteria LM.HPF (Urine sed) [#/Area] 0 /[HPF] None Seen [facility] Urine specific gravity measu rementOrdered By: Dr. Villanueva on 12-13-2021 Specific gravity (U) [Rel density] 1.015 1.002-1.030 [facility] Urobilinogen Auto test strip Ql (U)Ordered By: Dr. Villanueva on 12-13-2021 Urobilinogen Ql (U) Normal mg/dl Normal [facility] Absolute lymphocyte counton 12-08-2021 Lymphocytes Auto (Unsp spec) [#/Vol] 0.86 10*3/uL 0.83-4.51 [facility] Work Phone: Basophil percentageon 2021 Basophils/100 WBC (Bld) 0.2 % 0-1 [facility] Work Phone: Bilirubin [Mass/Vol] 1.30 mg/dL 0.20-1.00 [facility] Work Phone: Comment on above: For patients on eltr ombopag therapy, use of Dimension [place] TBIL is not recommended. Chloride [Moles/Vol] 105 mmol/L 98-107 [facility] Work Phone: Eosinophils/100 WBC (Bld) 0.2 % 0-5 [facility] Work Phone: Glucose [Mass/Vol] 205 mg/dL 74-106 [facility] Work Phone: Comment on above: Glucose result great er than or equal to 200 mg/dLsuggests DIABETES MELLITUS per A.D.A. criteria. Neutrophils (Bld) [#/Vol] 10.0 10*3/uL 2.0-7.7 [facility] Work Phone: Neutrophils/100 WBC (Bld) 84.4 % 47-70 [facility] Work Phone: Potassium [Moles/Vol] 4.3 mmol/L 3.5-5.1 [facility] Work Phone: Protein [Mass/Vol] 7.1 g/dL 6.4-8.2 [facility] Work Phone: Sodium [Moles/Vol] 139 mmol/L 136-145 [facility] Work Phone: WBC (Bld) [#/Vol] 11.9 10*3/uL 4.4-11.0 [facility] Work Phone: Blood erythrocytes count (nu mber/volume)on 12-08-2021 RBC (Bld) [#/Vol] 4.36 10*6/uL 4.6-6.2 [facility] [facility] Work Phone: Blood hemoglobin measurement (mass/volume)on 12-08-2021 Hemoglobin (Bld) [Mass/Vol] 13.2 g/dL 13.0-16.5 [facility] Work Phone: Blood lymphocytes/100 leukoc yteson 12-08-2021 Lymphocytes/100 WBC (Bld) 7.3 % 19-41 [facility] Work Phone: Blood monocytes/100 leukocyt eson 12-08-2021 Monocytes/100 WBC (Bld) 7.3 % 0-10 [facility] Work Phone: Blood platelet mean volumeon 12-08-2021 Platelet mean volume (Bld) [Entitic vol] 10.5 fL 6.2-12.0 [facility] Work Phone: Determination of erythrocyte mean corpuscular volume (MCV)on 12-08-2021 MCV (RBC) [Entitic vol] 92.2 fL 80-94 [facility] Work Phone: Erythrocyte sedimentation ra donnell 12-08-2021 ESR (Bld) [Velocity] 31 mm/h 0-20 [facility] Work Phone: Hematocrit Auto (Bld) [Volum e fraction]on 12-08-2021 Hematocrit (Bld) [Volume fraction] 40.2 % 40-54 [facility] Work Phone: Laboratory - Chemistry and C hemistry - challengeon 12-08-2021 ALP [Catalytic activity/Vol] 70 U/L 45-117 [facility] Work Phone: ALT [Catalytic activity/Vol] 16 U/L 16-61 [facility] Work Phone: CO2 [Moles/Vol] 27.0 mmol/L 21.0-32.0 [facility] Work Phone: Globulin (S) [Mass/Vol] 4.4 g/dL 2.2-4.2 [facility] Work Phone: [phone] Urea nitrogen/Creatinine [Mass ratio] 22.0 mg/mg 10-20 [facility] Work Phone: [phone] Laboratory - Hematology and Cell countson 12-08-2021 Erythrocyte distribution width (RBC) [Entitic vol] 43.1 fL 35.1-43.9 [facility] Work Phone: [phone] Erythrocyte distribution width (RBC) [Ratio] 12.7 % 11.6-14.6 [facility] Work Phone: [phone] Immature granulocytes/100 WBC (Bld) 0.600 % 0.0-0.9 [facility] Work Phone: [phone] Comment on above: IG% - Immature Granu locytes (promyelocytes, myelocytes and metamyelocytes) > 1% indicates that a LEFT SHIFT is Present. MCH (RBC) [Entitic mass] 30.3 pg 27.0-32.0 [facility] Work Phone: [phone] Nucleated RBC/100 WBC (Bld) [Ratio] 0 % 0-5 [facility] Work Phone: [phone] MCHC Auto (RBC) [Mass/Vol]on 12-08-2021 MCHC (RBC) [Mass/Vol] 32.8 g/dL 32-36 [facility] Work Phone: [phone] No Panel Informationon 12-08 Estimated Creatinine Clearance Calc 31.16 ml/min [facility] Work Phone: [phone] Estimated GFR (MDRD) Amer 54 mL/min >60 [facility] Work Phone: [phone] Comment on above: GFR Calc Estimated GFR (MDRD) Non-Af Amer 45 mL/min >60 [facility] Work Phone: [phone] Comment on above: Non- GFR Calc Platelets bldon 12-08-2021 Platelets (Bld) [#/Vol] 112 10*3/uL 150-450 [facility] Work Phone: [phone] Serum or plasma C reactive p rotein measurement (mass/volume)on 12-08-2021 CRP [Mass/Vol] 108.00 mg/L 0.0-3.0 [facility] Work Phone: Comment on above: C-Reactive Protein ( CRP) provides useful information for thediagnosis, therapy and monitoring of inflammatory processesand associated diseases. For the evaluation of Relative Riskfor Cardiovascular Disease, a High Sensitivity CRP (HSCRP)should be ordered. Serum or plasma albumin elmira urement (mass/volume)on 12-08-2021 Albumin [Mass/Vol] 2.7 g/dL 3.2-5.0 [facility] Work Phone: Serum or plasma albumin/glob ulin mass ratioon 12-08-2021 Albumin/Globulin [Mass ratio] 0.6 {ratio} 0.9-2.4 [facility] Work Phone: Serum or plasma calcium elmira urement (mass/volume)on 12-08-2021 Calcium [Mass/Vol] 9.3 mg/dL 8.5-10.1 [facility] Work Phone: Serum or plasma creatinine m easurement (mass/volume)on 12-08-2021 Creatinine [Mass/Vol] 1.59 mg/dL 0.70-1.30 [facility] Work Phone: Comment on above: The validity of the calculated GFR & GFRAA in patients over 70 years has not been determined. Clinical correlation is essential. Serum or plasma urea nitroge n measurement (mass/volume)on 12-08-2021 Urea nitrogen [Mass/Vol] 35 mg/dL 7-18 [facility] Work Phone: Serum or plasma uric acid me asurement (mass/volume)on 12-08-2021 Urate [Mass/Vol] 8.5 mg/dL 3.5-7.2 [facility] Work Phone: Comment on above: The drugs N-Acetylcy steine and Metamizole may falsely depress this assay. Thin prep Papanicolaou smear with manual screeningon 12-08-2021 Thin prep Papanicolaou smear with manual screening 14 U/L 15-37 [facility] Work Phone: Thin prep Papanicolaou smear with manual screening 7 07-24 [facility] Work Phone: LABORATORYOrdered By: Abigail Bailey [...] 11-28-2018 TSH Qn 3.31 mcIU/mL Normal 0.36-3.74 [facility] ([place]) Comment on above: Performed By: #### T #### [facility] [address] [place] [address] COVID-19 virus antigen assay SARS-CoV-2 (COVID-19) Ag IA.rapid Ql (Resp) [facility] Work Phone: Influenza virus A and B and SARS-CoV-2 (COVID-19) Ag panel - Upper respiratory specim SARS-CoV-2 (COVID-19) RNA JOSH+probe Ql (Resp) [facility] Work Phone: Vital Signs Date Time Vital Sign Value Performing Clinician Facility 06-25-2024 14:14-0400 Body temperature 98 [degF] Dr. Yuridia Hernandez MD Work Phone: [facility] 06-25-2024 14:14-0400 Diastolic blood pressure 67 mm[Hg] Dr. Yuridia Hernandez MD Work Phone: [facility] 06-25-2024 14:14-0400 Heart rate 80 /min Dr. Yuridia Hernandez MD Work Phone: [facility] 06-25-2024 14:14-0400 Inhaled oxygen flow rate 1.5 L/min Dr. Yuridia Hernandez MD Work Phone: [facility] 06-25-2024 14:14-0400 Respiratory rate 16 /min Dr. Yuridia Hernandez MD Work Phone: [facility] 06-25-2024 14:14-0400 SaO2% (BldA) [Mass fraction] 98 % Dr. Yuridia Hernandez MD Work Phone: [facility] 06-25-2024 14:14-0400 Systolic blood pressure 106 mm[Hg] Dr. Yuridia Hernandez MD Work Phone: 9(007)090-817116 [place] [address] 06-24-2024 14:11-0400 Body height 165.[address] Yuridia Hernandez MD Work Phone: 2(033)968-483116 [place] [address] 06-24-2024 14:11-0400 Body weight 82.[address] Yuridia Hernandez MD Work Phone: 5(233)541-702016 [place] [address] 06-23-2024 18:43-0400 Body mass index (BMI) [Ratio] 30.1 kg/m2 Dr. Yuridia Hernandez MD Work Phone: 0(860)642-285216 [place] [address] 06-23-2024 18:00-0400 Diastolic blood pressure 82 mm[Hg] Dr. Yuridia Hernandez MD Work Phone: 3(990)880-539016 [place] [address] 06-23-2024 18:00-0400 Heart rate 104 /min Dr. Yuridia Hernandez MD Work Phone: 2(194)006-443016 [place] [address] 06-23-2024 18:00-0400 Respiratory rate 27 /min Dr. Yuridia Hernandez MD Work Phone: 4(126)238-672216 [place] [address] 06-23-2024 18:00-0400 SaO2% (BldA) [Mass fraction] 98 % Dr. Yuridia Hernandez MD Work Phone: 6(885)429-918816 [place] [address] 06-23-2024 18:00-0400 Systolic blood pressure 109 mm[Hg] Dr. Yuridia Hernandez MD Work Phone: 3(787)538-656616 [place] [address] 06-23-2024 17:33-0400 Body temperature 98 [degF] Dr. Yuridia Hernandez MD Work Phone: 0(954)211-363816 [place] [address] 06-23-2024 16:00-0400 Inhaled oxygen flow rate 2 L/min Dr. Yuridia Hernandez MD Work Phone: 5(473)606-151516 [place] [address] 06-23-2024 14:28-0400 Body height 165.[address] Yuridia Hernandez MD Work Phone: 7(038)008-569616 [place] [address] 06-23-2024 14:28-0400 Body mass index (BMI) [Ratio] 30.2 kg/m2 Dr. Yuridia Hernandez MD Work Phone: [facility] 06-23-2024 14:28-0400 Body weight 82.[address] Yuridia Hernandez MD Work Phone: [facility] 05-28-2024 15:44-0400 Body mass index (BMI) [Ratio] 30.1 kg/m2 Dr. Yuridia Hernandez MD Work Phone: 6(461)217-205379 [place] [address] 05-28-2024 15:44-0400 Body temperature 98.6 [degF] Dr. Yuridia Hernandez MD Work Phone: 9(933)496-205779 [place] [address] 05-28-2024 15:44-0400 Body weight 82.[address] Yuridia Hernandez MD Work Phone: 3(184)047-531479 [place] [address] 05-28-2024 15:44-0400 Diastolic blood pressure 54 mm[Hg] Dr. Yuridia Hernandez MD Work Phone: 6(688)222-392579 [place] [address] 05-28-2024 15:44-0400 Heart rate 95 /min Dr. Yuridia Hernandez MD Work Phone: 3(901)681-293879 [place] [address] 05-28-2024 15:44-0400 Inhaled oxygen flow rate 3 L/min Dr. Yuridia Hernandez MD Work Phone: 1(761)112-618879 [place] [address] 05-28-2024 15:44-0400 Respiratory rate 20 /min Dr. Yruidia Hernandez MD Work Phone: [facility] 05-28-2024 15:44-0400 SaO2% (BldA) [Mass fraction] 93 % Dr. Yuridia Hernandez MD Work Phone: 4(306)986-474379 [place] [address] 05-28-2024 15:44-0400 Systolic blood pressure 139 mm[Hg] Dr. Yuridia Hernandez MD Work Phone: 0(724)938-435879 [place] [address] 04-02-2024 15:56-0500 Body temperature 98 [degF] Dr. Yuridia Hernandez MD Work Phone: 0(318)268-055579 [place] [address] 04-02-2024 15:56-0500 Diastolic blood pressure 62 mm[Hg] Dr. Yuridia Hernandez MD Work Phone: [facility] 04-02-2024 15:56-0500 Heart rate 98 /min Dr. Yuridia Hernandez MD Work Phone: [facility] 04-02-2024 15:56-0500 Inhaled oxygen flow rate 2 L/min Dr. Yuridia Hernandez MD Work Phone: 0(990)850-887179 [place] [address] 04-02-2024 15:56-0500 Respiratory rate 18 /min Dr. Yuridia Hernandez MD Work Phone: 3(017)499-938116 [place] [address] 04-02-2024 15:56-0500 SaO2% (BldA) [Mass fraction] 95 % Dr. Yuridia Hernandez MD Work Phone: 2(218)850-203986 [address] 04-02-2024 15:56-0500 Systolic blood pressure 124 mm[Hg] Dr. Yuridia Hernandez MD Work Phone: 8(332)424-666716 [place] [address] 03-24-2024 15:39-0500 Body mass index (BMI) [Ratio] 30.3 kg/m2 Dr. Yuridia Hernandez MD Work Phone: 6(591)642-736316 [place] [address] 03-24-2024 15:39-0500 Body weight 82.[address] Yuridia Hernandez MD Work Phone: 8(140)761-586479 [place] [address] 03-24-2024 15:34-0500 Body temperature 98.8 [degF] Dr. Yuridia Hernandez MD Work Phone: 0(521)997-427479 [place] [address] 03-24-2024 15:34-0500 Diastolic blood pressure 55 mm[Hg] Dr. Yuridia Hernandez MD Work Phone: 9(824)934-556379 [place] [address] 03-24-2024 15:34-0500 Heart rate 88 /min Dr. Yuridia Hernandez MD Work Phone: [facility] 03-24-2024 15:34-0500 Inhaled oxygen flow rate 3 L/min Dr. Yuridia Hernandez MD Work Phone: 1(143)379-108379 [place] [address] 03-24-2024 15:34-0500 Respiratory rate 18 /min Dr. Yuridia Hernandez MD Work Phone: [facility] 03-24-2024 15:34-0500 SaO2% (BldA) [Mass fraction] 93 % Dr. Yuridia Hernandez MD Work Phone: [facility] 03-24-2024 15:34-0500 Systolic blood pressure 124 mm[Hg] Dr. Yuridia Hernandez MD Work Phone: 4(595)799-852779 [place] [address] 03-02-2024 09:23-0500 Heart rate 96 /min Dr. Yuridia Hernandez MD Work Phone: 9(617)945-158786 [address] 03-02-2024 09:22-0500 Body temperature 97.7 [degF] Dr. Yuridia Hernandez MD Work Phone: 7(628)159-840686 [address] 03-02-2024 09:22-0500 Diastolic blood pressure 56 mm[Hg] Dr. Yuridia Hernandez MD Work Phone: 5(056)013-605386 [address] 03-02-2024 09:22-0500 Inhaled oxygen flow rate 2 L/min Dr. Yuridia Hernandez MD Work Phone: 4(248)510-336179 [place] [address] 03-02-2024 09:22-0500 Respiratory rate 20 /min Dr. Yuridia Hernandez MD Work Phone: 8(287)295-165779 [place] [address] 03-02-2024 09:22-0500 SaO2% (BldA) [Mass fraction] 98 % Dr. Yuridia Hernandez MD Work Phone: 8(355)106-634179 [place] [address] 03-02-2024 09:22-0500 Systolic blood pressure 114 mm[Hg] Dr. Yuridia Hernandez MD Work Phone: 2(859)556-489386 [address] 03-02-2024 04:41-0500 Body mass index (BMI) [Ratio] 30.6 kg/m2 Dr. Yuridia Hernandez MD Work Phone: [facility] 03-02-2024 04:41-0500 Body weight 83.[address] Yuridia Hernandez MD Work Phone: 1(856)940-415886 [address] 06-27-2023 16:25-0400 Diastolic blood pressure 51 mm[Hg] Dr. Talya Nichols Work Phone: [facility] 06-27-2023 16:25-0400 Heart rate 87 /min Dr. Talya Nichols Work Phone: [facility] 06-27-2023 16:25-0400 Inhaled oxygen flow rate 3 L/min Dr. Talya Nichols Work Phone: [facility] 06-27-2023 16:25-0400 Respiratory rate 24 /min Dr. Talya Nichols Work Phone: [facility] 06-27-2023 16:25-0400 SaO2% (BldA) [Mass fraction] 98 % Dr. Talya Nichols Work Phone: [facility] 06-27-2023 16:25-0400 Systolic blood pressure 148 mm[Hg] Dr. Talya Nichols Work Phone: [facility] 06-27-2023 15:34-0400 Body temperature 97.5 [degF] Dr. Talya Nichols Work Phone: [facility] 06-27-2023 13:07-0400 Body height 165.[address] Talya Nichols Work Phone: [facility] 06-11-2023 12:11-0400 Heart rate 89 /min AHMET CLARK MD [facility] 06-11-2023 12:11-0400 Respiratory rate 24 /min AHMET CLARK MD [facility] 06-11-2023 08:32-0400 Heart rate 75 /min AHMET CLARK MD [facility] 06-11-2023 06:40-0400 Heart rate 73 /min AHMET CLARK MD [facility] 06-11-2023 06:40-0400 Respiratory rate 20 /min AHMET CLARK MD [facility] 06-11-2023 06:33-0400 Blood Pressure Cuff Size AHMET CLARK MD [facility] 06-11-2023 06:33-0400 Blood Pressure Location AHMET CLARK MD [facility] 06-11-2023 06:33-0400 Blood Pressure Method AHMET CLARK MD [facility] 06-11-2023 06:33-0400 Body temperature 97.34 [degF] AHMET CLARK MD [facility] 06-11-2023 06:33-0400 Diastolic Blood Pressure Non-Invasive 57 mm[Hg] AHMET CLARK MD [facility] 06-11-2023 06:33-0400 Heart rate 75 /min AHMET CLARK MD [facility] 06-11-2023 06:33-0400 Reason For Taking VItal Signs AHMET CLARK MD [facility] 06-11-2023 06:33-0400 Respiratory rate 20 /min AHMET CLARK MD [facility] 06-11-2023 06:33-0400 Systolic Blood Pressure Non-Invasive 128 mm[Hg] AHMET CLARK MD [facility] 06-10-2023 21:32-0400 Blood Pressure Cuff Size AHMET CLARK MD [facility] 06-10-2023 21:32-0400 Blood Pressure Location AHMET CLARK MD [facility] 06-10-2023 21:32-0400 Blood Pressure Method AHMET CLARK MD [facility] 06-10-2023 21:32-0400 Body temperature 98.06 [degF] AHMET CLARK MD [facility] 06-10-2023 21:32-0400 Diastolic Blood Pressure Non-Invasive 61 mm[Hg] AHMET CLARK MD [facility] 06-10-2023 21:32-0400 Heart rate 73 /min AHMET CLARK MD [facility] 06-10-2023 21:32-0400 Systolic Blood Pressure Non-Invasive 136 mm[Hg] AHMET CLARK MD [facility] 06-10-2023 14:28-0400 Blood Pressure Cuff Size AHMET CLARK MD [facility] 06-10-2023 14:28-0400 Blood Pressure Location AHMET CLARK MD [facility] 06-10-2023 14:28-0400 Blood Pressure Method AHMET CLARK MD [facility] 06-10-2023 14:28-0400 Body temperature 97.34 [degF] AHMET CLARK MD [facility] 06-10-2023 14:28-0400 Diastolic Blood Pressure Non-Invasive 46 mm[Hg] AHMET CLARK MD [facility] 06-10-2023 14:28-0400 Reason For Taking VItal Signs AHMET CLARK MD [facility] 06-10-2023 14:28-0400 Systolic Blood Pressure Non-Invasive 140 mm[Hg] AHMET CLARK MD [facility] 06-10-2023 08:13-0400 Heart rate 68 /min AHMET CLARK MD [facility] 06-10-2023 08:13-0400 Reason For Taking VItal Signs AHMET CLARK MD [facility] 06-09-2023 18:38-0400 Heart rate 83 /min AHMET CLARK MD [facility] 06-09-2023 18:00-0400 Heart rate 89 /min AHMET CLARK MD [facility] 06-09-2023 18:00-0400 Mean blood pressure 67 mm[Hg] AHMET CLARK MD [facility] 06-09-2023 16:00-0400 Mean blood pressure 54 mm[Hg] AHMET CLARK MD [facility] 06-09-2023 15:00-0400 Mean blood pressure 49 mm[Hg] AHMET CLARK MD [facility] 06-09-2023 15:00-0400 Signs/Symptoms Transfusion Reaction AHMET CLARK MD [facility] 06-09-2023 14:37-0400 Signs/Symptoms Transfusion Reaction AHMET CLARK MD [facility] 06-09-2023 13:40-0400 Diastolic blood pressure 55 mm[Hg] AHMET CLARK MD [facility] 06-09-2023 13:40-0400 Signs/Symptoms Transfusion Reaction No AHMET CLARK MD [facility] 06-09-2023 13:40-0400 Systolic blood pressure 145 mm[Hg] AHMET CLARK MD [facility] 06-08-2023 22:18-0400 Body height 165.1 cm AHMET CLARK MD [facility] 06-08-2023 22:18-0400 Body weight 83.3 kg AHMET CLARK MD [facility] 06-08-2023 22:18-0400 Body weight 30.56 kg/m2 AHMET CLARK MD [facility] 06-08-2023 20:58-0400 Diastolic blood pressure 68 mm[Hg] DR MARGARET RILEY DO [facility] 06-08-2023 20:58-0400 Heart rate 93 /min DR MARGARET RILEY DO [facility] 06-08-2023 20:58-0400 Respiratory rate 24 /min DR MARGARET RILEY DO [facility] 06-08-2023 20:58-0400 Systolic blood pressure 135 mm[Hg] DR MARGARET RILEY DO [facility] 06-08-2023 19:54-0400 Diastolic Blood Pressure Non-Invasive 54 mm[Hg] DR MARGARET RILEY DO [facility] 06-08-2023 19:54-0400 Heart rate 100 /min DR MARGARET RILEY DO [facility] 06-08-2023 19:54-0400 Respiratory rate 24 /min DR MARGARET RILEY DO [facility] 06-08-2023 19:54-0400 Systolic Blood Pressure Non-Invasive 138 mm[Hg] DR MARGARET RILEY DO [facility] 06-08-2023 19:09-0400 Diastolic Blood Pressure Non-Invasive 91 mm[Hg] DR MARGARET RILEY DO [facility] 06-08-2023 19:09-0400 Heart rate 100 /min DR MARGARET RILEY DO [facility] 06-08-2023 19:09-0400 Respiratory rate 24 /min DR MARGARET RILEY DO [facility] 06-08-2023 19:09-0400 Systolic Blood Pressure Non-Invasive 114 mm[Hg] DR MARGARET RILEY DO [facility] 06-08-2023 18:27-0400 SaO2% (BldA) [Mass fraction] 99 % DR MARGARET RILEY DO [facility] 06-08-2023 18:20-0400 Heart rate 98 /min DR MARGARET RILEY DO [facility] 06-08-2023 18:08-0400 Diastolic Blood Pressure Non-Invasive 71 mm[Hg] DR MARGARET RILEY DO [facility] 06-08-2023 18:08-0400 Systolic Blood Pressure Non-Invasive 155 mm[Hg] DR MARGARET RILEY DO [facility] 06-08-2023 15:22-0400 Heart rate 96 /min DR MARGARET RILEY DO [facility] 06-08-2023 15:04-0400 Heart rate 90 /min DR MARGARET RILEY DO [facility] 06-08-2023 13:48-[address] MARGARET RILEY DO [facility] 06-08-2023 13:48-[address] MARGARET RILEY DO [facility] 06-08-2023 13:48-0400 Body temperature 98.24 [degF] DR MARGARET RILEY DO [facility] 06-08-2023 13:48-0400 Body weight 84.[address] MARGARET RILEY DO [facility] 05-25-2023 17:50-0400 Diastolic Blood Pressure Non-Invasive 77 mm[Hg] ANNY DA SILVA MD [facility] 05-25-2023 17:50-0400 Heart rate 99 /min ANNY DA SILVA MD [facility] 05-25-2023 17:50-0400 Respiratory rate 22 /min ANNY DA SILVA MD [facility] 05-25-2023 17:50-0400 Systolic Blood Pressure Non-Invasive 130 mm[Hg] ANNY DA SILVA MD [facility] 05-25-2023 16:55-0400 Diastolic Blood Pressure Non-Invasive 62 mm[Hg] ANNY DA SILVA MD [facility] 05-25-2023 16:55-0400 Heart rate 93 /min ANNY DA SILVA MD [facility] 05-25-2023 16:55-0400 Respiratory rate 22 /min ANNY DA SILVA MD [facility] 05-25-2023 16:55-0400 Systolic Blood Pressure Non-Invasive 136 mm[Hg] ANNY DA SILVA MD [facility] 05-25-2023 16:45-0400 Heart rate 90 /min ANNY DA SILVA MD [facility] 05-25-2023 16:45-0400 Respiratory rate 22 /min ANNY DA SILVA MD [facility] 05-25-2023 16:31-0400 Diastolic Blood Pressure Non-Invasive 61 mm[Hg] ANNY DA SILVA MD [facility] 05-25-2023 16:31-0400 Systolic Blood Pressure Non-Invasive 144 mm[Hg] ANNY DA SILVA MD [facility] 05-25-2023 15:04-0400 Body temperature 98.78 [degF] ANNY DA SILVA MD [facility] 05-25-2023 15:04-0400 Body weight 86.4 kg ANNY DA SILVA MD [facility] 05-08-2023 15:22-0500 Body temperature 97.7 [degF] DELIA KAPPER PROCESS SAFETY MANAGEMENT ENGINEER-OFFSET MACHINE OPERATOR [facility] 05-08-2023 15:22-0500 Diastolic Blood Pressure Non-Invasive 49 mm[Hg] DELIA KAPPER PROCESS SAFETY MANAGEMENT ENGINEER-OFFSET MACHINE OPERATOR [facility] 05-08-2023 15:22-0500 Heart rate 78 /min DELIA KAPPER PROCESS SAFETY MANAGEMENT ENGINEER-OFFSET MACHINE OPERATOR [facility] 05-08-2023 15:22-0500 Reason For Taking VItal Signs DELIA KAPPER PROCESS SAFETY MANAGEMENT ENGINEER-OFFSET MACHINE OPERATOR [facility] 05-08-2023 15:22-0500 Respiratory rate 20 /min DELIA KAPPER PROCESS SAFETY MANAGEMENT ENGINEER-OFFSET MACHINE OPERATOR [facility] 05-08-2023 15:22-0500 Systolic Blood Pressure Non-Invasive 139 mm[Hg] DELIA KAPPER PROCESS SAFETY MANAGEMENT ENGINEER-OFFSET MACHINE OPERATOR [facility] 05-08-2023 15:11-0500 Heart rate 82 /min DELIA KAPPER PROCESS SAFETY MANAGEMENT ENGINEER-OFFSET MACHINE OPERATOR [facility] 05-08-2023 15:11-0500 Respiratory rate 20 /min DELIA KAPPER PROCESS SAFETY MANAGEMENT ENGINEER-OFFSET MACHINE OPERATOR [facility] 05-08-2023 11:11-0500 Heart rate 77 /min DELIA KAPPER PROCESS SAFETY MANAGEMENT ENGINEER-OFFSET MACHINE OPERATOR [facility] 05-08-2023 11:11-0500 Respiratory rate 20 /min DELIA KAPPER PROCESS SAFETY MANAGEMENT ENGINEER-OFFSET MACHINE OPERATOR [facility] 05-08-2023 11:00-0500 Systolic Blood Pressure Non-Invasive 153 mm[Hg] DELIA MARCER PROCESS SAFETY MANAGEMENT ENGINEER-OFFSET MACHINE OPERATOR [facility] 05-08-2023 06:45-0500 Body temperature 97.52 [degF] DELIA KAPPER PROCESS SAFETY MANAGEMENT ENGINEER-OFFSET MACHINE OPERATOR [facility] 05-08-2023 06:45-0500 Diastolic Blood Pressure Non-Invasive 52 mm[Hg] DELIA KAPPER PROCESS SAFETY MANAGEMENT ENGINEER-OFFSET MACHINE OPERATOR [facility] 05-08-2023 06:45-0500 Heart rate 69 /min DELIA KAPPER PROCESS SAFETY MANAGEMENT ENGINEER-OFFSET MACHINE OPERATOR [facility] 05-08-2023 06:45-0500 Reason For Taking VItal Signs DELIA TRANER PROCESS SAFETY MANAGEMENT ENGINEER-OFFSET MACHINE OPERATOR [facility] 05-08-2023 06:45-0500 Systolic Blood Pressure Non-Invasive 136 mm[Hg] DELIA MARCER PROCESS SAFETY MANAGEMENT ENGINEER-OFFSET MACHINE OPERATOR [facility] 05-08-2023 05:43-0500 Heart rate 71 /min DELIA KAPPER PROCESS SAFETY MANAGEMENT ENGINEER-OFFSET MACHINE OPERATOR [facility] 05-07-2023 20:07-0500 Heart rate 74 /min DELIA KAPPER PROCESS SAFETY MANAGEMENT ENGINEER-OFFSET MACHINE OPERATOR [facility] 05-07-2023 16:55-0500 Heart rate 84 /min DELIA KAPPER PROCESS SAFETY MANAGEMENT ENGINEER-OFFSET MACHINE OPERATOR [facility] 05-07-2023 14:29-0500 Body height 165.1 cm DELIA TRANER PROCESS SAFETY MANAGEMENT ENGINEER-OFFSET MACHINE OPERATOR [facility] 05-07-2023 14:29-0500 Body weight 87 kg DELIA KAPPER PROCESS SAFETY MANAGEMENT ENGINEER-OFFSET MACHINE OPERATOR [facility] 05-07-2023 14:29-0500 Body weight 31.92 kg/m2 DELIA JEFFERSON PROCESS SAFETY MANAGEMENT ENGINEER-OFFSET MACHINE OPERATOR [facility] 05-07-2023 09:56-0500 Body height 165.1 cm DELIA JEFFERSON PROCESS SAFETY MANAGEMENT 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 Talya Nichols Work Phone: [facility] 05-01-2023 05:20-0500 Diastolic blood pressure 56 mm[Hg] Dr. Talya Nichols Work Phone: [facility] 05-01-2023 05:20-0500 Heart rate 74 /min Dr. Talya Nichols Work Phone: [facility] 05-01-2023 05:20-0500 Respiratory rate 22 /min Dr. Talya Nichols Work Phone: [facility] 05-01-2023 05:20-0500 SaO2% (BldA) [Mass fraction] 97 % Dr. Talya Nichols Work Phone: [facility] 05-01-2023 05:20-0500 Systolic blood pressure 138 mm[Hg] Dr. Talay Nichols Work Phone: [facility] 04-30-2023 23:00-0500 Inhaled oxygen flow rate 4 L/min Dr. Talya Nichols Work Phone: [facility] 04-30-2023 21:40-0500 Body height 165.[address] Talya Nichols Work Phone: [facility] 04-30-2023 21:40-0500 Body mass index (BMI) [Ratio] 33.6 kg/m2 Dr. Talya Nichols Work Phone: [facility] 04-30-2023 21:40-0500 Body weight 91.[address] Talya Nichols Work Phone: [facility] 04-26-2023 12:15-0500 Heart rate 8 /min Dr. Talya Nichols Work Phone: [facility] 04-26-2023 12:15-0500 Respiratory rate 20 /min Dr. Talya Nichols Work Phone: [facility] 04-26-2023 11:31-0500 Inhaled oxygen flow rate 2 L/min Dr. Talya Nichols Work Phone: [facility] 04-26-2023 11:31-0500 SaO2% (BldA) [Mass fraction] 98 % Dr. Talya Nichols Work Phone: [facility] 04-26-2023 08:20-0500 Body temperature 97.5 [degF] Dr. Talya Nichols Work Phone: [facility] 04-26-2023 08:20-0500 Diastolic blood pressure 46 mm[Hg] Dr. Talya Nichols Work Phone: [facility] 04-26-2023 08:20-0500 Systolic blood pressure 134 mm[Hg] Dr. Talya Nichols Work Phone: [facility] 04-26-2023 01:30-0500 Body mass index (BMI) [Ratio] 31.6 kg/m2 Dr. Talya Nichols Work Phone: [facility] 04-26-2023 01:30-0500 Body weight 86.[address] Talya Nichols Work Phone: [facility] 04-25-2023 10:36-0500 Body height 165.[address] Talya Nichols Work Phone: [facility] 04-24-2023 19:45-0500 Diastolic blood pressure 72 mm[Hg] Dr. Talya Nichols Work Phone: [facility] 04-24-2023 19:45-0500 Heart rate 107 /min Dr. Talya Nichols Work Phone: [facility] 04-24-2023 19:45-0500 Respiratory rate 27 /min Dr. Talya Nichols Work Phone: [facility] 04-24-2023 19:45-0500 SaO2% (BldA) [Mass fraction] 94 % Dr. Talya Nichols Work Phone: [facility] 04-24-2023 19:45-0500 Systolic blood pressure 90 mm[Hg] Dr. Talya Nichols Work Phone: [facility] 04-24-2023 19:03-0500 Body temperature 97.9 [degF] Dr. Talya Nichols Work Phone: [facility] 04-24-2023 18:29-0500 Inhaled oxygen flow rate 4 L/min Dr. Talya Nichols Work Phone: [facility] 04-24-2023 15:35-0500 Body height 165.[address] Talya Nichols Work Phone: [facility] 04-24-2023 15:35-0500 Body mass index (BMI) [Ratio] 33.3 kg/m2 Dr. Talya Nichols Work Phone: [facility] 04-24-2023 15:35-0500 Body weight 90.[address] Talya Nichols Work Phone: [facility] 04-07-2023 16:12-0500 Diastolic blood pressure 65 mm[Hg] Dr. Talya Nichols Work Phone: [facility] 04-07-2023 16:12-0500 Heart rate 91 /min Dr. Talya Nichols Work Phone: [facility] 04-07-2023 16:12-0500 SaO2% (BldA) [Mass fraction] 99 % Dr. Talya Nichols Work Phone: [facility] 04-07-2023 16:12-0500 Systolic blood pressure 160 mm[Hg] Dr. Talya Nichols Work Phone: [facility] 04-07-2023 14:19-0500 Inhaled oxygen flow rate 3 L/min Dr. Talya Nichols Work Phone: [facility] 04-07-2023 14:07-0500 Inhaled oxygen concentration 97 % Dr. Talya Nichols Work Phone: [facility] 04-07-2023 13:42-0500 Body height 165.[address] Talya Nichols Work Phone: [facility] 04-07-2023 13:42-0500 Body mass index (BMI) [Ratio] 33.2 kg/m2 Dr. Talya Nichols Work Phone: [facility] 04-07-2023 13:42-0500 Body temperature 98.4 [degF] Dr. Talya Nichols Work Phone: [facility] 04-07-2023 13:42-0500 Body weight 90.[address] Talya Nichols Work Phone: [facility] 04-07-2023 13:42-0500 Respiratory rate 36 /min Dr. Talya Nichols Work Phone: [facility] 04-02-2023 11:01-0500 Body temperature 98.6 [degF] Dr. Talya Nichols Work Phone: [facility] 04-02-2023 11:01-0500 Diastolic blood pressure 59 mm[Hg] Dr. Talya Nichols Work Phone: [facility] 04-02-2023 11:01-0500 Heart rate 90 /min Dr. Talya Nichols Work Phone: [facility] 04-02-2023 11:01-0500 Inhaled oxygen flow rate 2 L/min Dr. Talya Nichols Work Phone: [facility] 04-02-2023 11:01-0500 Respiratory rate 18 /min Dr. Talya Nichols Work Phone: [facility] 04-02-2023 11:01-0500 SaO2% (BldA) [Mass fraction] 98 % Dr. Talya Nichols Work Phone: [facility] 04-02-2023 11:01-0500 Systolic blood pressure 136 mm[Hg] Dr. Talya Nichols Work Phone: [facility] 04-02-2023 09:15-0500 Body height 165.[address] Talya Nichols Work Phone: [facility] 04-02-2023 09:15-0500 Body mass index (BMI) [Ratio] 32.4 kg/m2 Dr. Talya Nichols Work Phone: [facility] 04-02-2023 09:15-0500 Body weight 88.[address] Talya Nichols Work Phone: [facility] 03-09-2023 16:48-0500 Body temperature 97.9 [degF] Dr. Talya Nichols Work Phone: [facility] 03-09-2023 16:48-0500 Diastolic blood pressure 87 mm[Hg] Dr. Talya Nichols Work Phone: [facility] 03-09-2023 16:48-0500 Heart rate 100 /min Dr. Talya Nichols Work Phone: [facility] 03-09-2023 16:48-0500 Inhaled oxygen flow rate 2 L/min Dr. Talya Nichols Work Phone: [facility] 03-09-2023 16:48-0500 Respiratory rate 18 /min Dr. Talya Nichols Work Phone: [facility] 03-09-2023 16:48-0500 SaO2% (BldA) [Mass fraction] 95 % Dr. Talya Nichols Work Phone: [facility] 03-09-2023 16:48-0500 Systolic blood pressure 131 mm[Hg] Dr. Talya Nichols Work Phone: [facility] 03-08-2023 14:56-0500 Body height 165.[address] Talya Nichols Work Phone: [facility] 03-08-2023 14:56-0500 Body weight 84.[address] Talya Nichols Work Phone: [facility] 03-07-2023 22:14-0500 Body mass index (BMI) [Ratio] 31.1 kg/m2 Dr. Talya Nichols Work Phone: [facility] 03-07-2023 20:21-0500 Diastolic blood pressure 49 mm[Hg] Dr. Talya Nichols Work Phone: [facility] 03-07-2023 20:21-0500 Heart rate 81 /min Dr. Talya Nichols Work Phone: [facility] 03-07-2023 20:21-0500 SaO2% (BldA) [Mass fraction] 98 % Dr. Talya Nichols Work Phone: [facility] 03-07-2023 20:21-0500 Systolic blood pressure 133 mm[Hg] Dr. Talya Nichols Work Phone: [facility] 03-07-2023 19:11-0500 Respiratory rate 24 /min Dr. Talya Nichols Work Phone: [facility] 03-07-2023 18:55-0500 Inhaled oxygen flow rate 3 L/min Dr. Talya Nichols Work Phone: [facility] 03-07-2023 18:29-0500 Body temperature 98.4 [degF] Dr. Talya Nichols Work Phone: [facility] 03-07-2023 18:22-0500 Body height 165.[address] Talya Nichols Work Phone: [facility] 03-07-2023 18:22-0500 Body mass index (BMI) [Ratio] 32.3 kg/m2 Dr. Talya Nichols Work Phone: [facility] 03-07-2023 18:22-0500 Body weight [address] Talya Nichols Work Phone: [facility] 02-15-2023 13:59-0500 Body height 165.[address] Talya Nichols Work Phone: [facility] 02-15-2023 13:59-0500 Body weight 85.[address] Talya Nichols Work Phone: [facility] 02-15-2023 12:57-0500 Heart rate 90 /min Dr. Talya Nichols Work Phone: [facility] 02-15-2023 12:57-0500 Respiratory rate 20 /min Dr. Talya Nichols Work Phone: [facility] 02-15-2023 12:00-0500 Body temperature 97.1 [degF] Dr. Talya Nichols Work Phone: [facility] 02-15-2023 12:00-0500 Diastolic blood pressure 52 mm[Hg] Dr. Talya Nichols Work Phone: [facility] 02-15-2023 12:00-0500 Inhaled oxygen flow rate 2 L/min Dr. Talya Nichols Work Phone: [facility] 02-15-2023 12:00-0500 SaO2% (BldA) [Mass fraction] 99 % Dr. Talya Nichols Work Phone: [facility] 02-15-2023 12:00-0500 Systolic blood pressure 129 mm[Hg] Dr. Talya Nichols Work Phone: [facility] 02-15-2023 03:14-0500 Body mass index (BMI) [Ratio] 31.3 kg/m2 Dr. Talya Nichols Work Phone: [facility] 02-14-2023 22:00-0500 Inhaled oxygen concentration 98 % Dr. Talya Nichols Work Phone: [facility] 02-13-2023 23:32-0500 Diastolic blood pressure 40 mm[Hg] Dr. Talya Nichols Work Phone: [facility] 02-13-2023 23:32-0500 Heart rate 98 /min Dr. Talya Nichols Work Phone: [facility] 02-13-2023 23:32-0500 Inhaled oxygen flow rate 2 L/min Dr. Talya Nichols Work Phone: [facility] 02-13-2023 23:32-0500 Respiratory rate 20 /min Dr. Talya Nichols Work Phone: [facility] 02-13-2023 23:32-0500 SaO2% (BldA) [Mass fraction] 99 % Dr. Talya Nichols Work Phone: [facility] 02-13-2023 23:32-0500 Systolic blood pressure 109 mm[Hg] Dr. Talya Nichols Work Phone: [facility] 02-13-2023 22:36-0500 Body temperature 98.2 [degF] Dr. Talya Nichols Work Phone: [facility] 02-13-2023 22:24-0500 Inhaled oxygen concentration 2 % Dr. Talya Nichols Work Phone: [facility] 02-13-2023 20:08-0500 Body height 165.[address] Talya Nichols Work Phone: [facility] 02-13-2023 20:08-0500 Body mass index (BMI) [Ratio] 32 kg/m2 Dr. Talya Nichols Work Phone: [facility] 02-13-2023 20:08-0500 Body weight 87.[address] Talya Nichols Work Phone: [facility] 02-08-2023 22:00-0500 Diastolic blood pressure 46 mm[Hg] Dr. Talya Nichols Work Phone: [facility] 02-08-2023 22:00-0500 Respiratory rate 16 /min Dr. Talya Nichols Work Phone: [facility] 02-08-2023 22:00-0500 SaO2% (BldA) [Mass fraction] 95 % Dr. Talya Nichols Work Phone: [facility] 02-08-2023 22:00-0500 Systolic blood pressure 125 mm[Hg] Dr. Talya Nichols Work Phone: [facility] 02-08-2023 21:57-0500 Heart rate 98 /min Dr. Talya Nichols Work Phone: [facility] 02-08-2023 20:29-0500 Inhaled oxygen flow rate 2 L/min Dr. Talya Nichols Work Phone: [facility] 02-08-2023 17:56-0500 Body temperature 98.6 [degF] Dr. Talya Nichols Work Phone: [facility] 02-08-2023 17:50-0500 Body mass index (BMI) [Ratio] 32.7 kg/m2 Dr. Talya Nichols Work Phone: [facility] 02-08-2023 17:50-0500 Body weight 89.[address] Talya Nichols Work Phone: [facility] 11-18-2022 15:26-0400 Inhaled oxygen flow rate 2 L/min Dr. Talya Nichols Work Phone: [facility] 11-18-2022 15:26-0400 SaO2% (BldA) [Mass fraction] 92 % Dr. Talya Nichols Work Phone: [facility] 11-18-2022 15:22-0400 Body temperature 98.4 [degF] Dr. Talya Nichols Work Phone: [facility] 11-18-2022 15:22-0400 Diastolic blood pressure 58 mm[Hg] Dr. Talya Nichols Work Phone: [facility] 11-18-2022 15:22-0400 Heart rate 92 /min Dr. Talya Nichols Work Phone: [facility] 11-18-2022 15:22-0400 Respiratory rate 18 /min Dr. Talya Nichols Work Phone: [facility] 11-18-2022 15:22-0400 Systolic blood pressure 151 mm[Hg] Dr. Talya Nichols Work Phone: [facility] 11-17-2022 11:56-0400 Body height 165.[address] Talya Nichols Work Phone: [facility] 11-17-2022 11:56-0400 Body weight 84.[address] Talya Nichols Work Phone: [facility] 11-16-2022 19:44-0400 Body mass index (BMI) [Ratio] 31.1 kg/m2 Dr. Talya Nichols Work Phone: [facility] 11-16-2022 19:04-0400 Body temperature 98.1 [degF] [facility] 11-16-2022 19:04-0400 Diastolic blood pressure 42 mm[Hg] [facility] 11-16-2022 19:04-0400 Heart rate 98 /min [facility] 11-16-2022 19:04-0400 Respiratory rate 24 /min [facility] 11-16-2022 19:04-0400 SaO2% (BldA) [Mass fraction] 99 % [facility] 11-16-2022 19:04-0400 Systolic blood pressure 117 mm[Hg] [facility] 11-16-2022 16:47-0400 Inhaled oxygen flow rate 2 L/min [facility] 11-16-2022 16:26-0400 Body height 165.1 cm [facility] 11-16-2022 16:26-0400 Body mass index (BMI) [Ratio] 32.7 kg/m2 [facility] 11-16-2022 16:26-0400 Body weight 89.2 kg [facility] 10-23-2022 00:04-0400 Respiratory rate 20 /min Dr. Talya Nichols Work Phone: [facility] 10-23-2022 00:04-0400 SaO2% (BldA) [Mass fraction] 95 % Dr. Talya Nichols Work Phone: [facility] 10-22-2022 22:50-0400 Diastolic blood pressure 56 mm[Hg] Dr. Talya Nichols Work Phone: [facility] 10-22-2022 22:50-0400 Heart rate 93 /min Dr. Talya Nichols Work Phone: [facility] 10-22-2022 22:50-0400 Inhaled oxygen flow rate 2 L/min Dr. Talya Nichols Work Phone: [facility] 10-22-2022 22:50-0400 Systolic blood pressure 131 mm[Hg] Dr. Talya Nichols Work Phone: [facility] 10-22-2022 21:40-0400 Body temperature 98.6 [degF] Dr. Talya Nichols Work Phone: [facility] 10-22-2022 20:14-0400 Body height 165.[address] Talya Nichols Work Phone: [facility] 10-22-2022 20:14-0400 Body mass index (BMI) [Ratio] 33.4 kg/m2 Dr. Talya Nichols Work Phone: [facility] 10-22-2022 20:14-0400 Body weight 91.[address] Talya Nichols Work Phone: [facility] 07-06-2022 09:09-0400 Body mass index (BMI) [Ratio] 31.1 kg/m2 Dr. Talya Nichols Work Phone: [facility] 07-06-2022 09:09-0400 Body weight 84.[address] Talya Nichols Work Phone: [facility] 07-06-2022 09:09-0400 Diastolic blood pressure 71 mm[Hg] Dr. Talya Nichols Work Phone: [facility] 07-06-2022 09:09-0400 Heart rate 87 /min Dr. Talya Nichols Work Phone: [facility] 07-06-2022 09:09-0400 Inhaled oxygen flow rate 2 L/min Dr. Talya Nichols Work Phone: [facility] 07-06-2022 09:09-0400 Respiratory rate 24 /min Dr. Talya Nichols Work Phone: [facility] 07-06-2022 09:09-0400 SaO2% (BldA) [Mass fraction] 95 % Dr. Talya Nichols Work Phone: [facility] 07-06-2022 09:09-0400 Systolic blood pressure 140 mm[Hg] Dr. Talya Nichols Work Phone: [facility] 05-26-2022 10:00-0400 Inhaled oxygen flow rate 2 L/min Dr. Talya Nichols Work Phone: [facility] 05-26-2022 09:30-0400 Body temperature 97.9 [degF] Dr. Talya Nichols Work Phone: [facility] 05-26-2022 09:30-0400 Diastolic blood pressure 67 mm[Hg] Dr. Talya Nichols Work Phone: [facility] 05-26-2022 09:30-0400 Heart rate 89 /min Dr. Talya Nichols Work Phone: [facility] 05-26-2022 09:30-0400 Respiratory rate 18 /min Dr. Talya Nichols Work Phone: [facility] 05-26-2022 09:30-0400 SaO2% (BldA) [Mass fraction] 93 % Dr. Talya Nichols Work Phone: [facility] 05-26-2022 09:30-0400 Systolic blood pressure 116 mm[Hg] Dr. Talya Nichols Work Phone: [facility] 05-26-2022 05:25-0400 Body mass index (BMI) [Ratio] 31.3 kg/m2 Dr. Talya Nicohls Work Phone: [facility] 05-26-2022 05:25-0400 Body weight 85.[address] Talya Nichols Work Phone: [facility] 05-24-2022 17:47-0400 Body height 165.[address] Talya Nichols Work Phone: [facility] 05-24-2022 16:11-0400 Body temperature 98 [degF] Dr. Talya Nichols Work Phone: [facility] 05-24-2022 16:11-0400 Diastolic blood pressure 50 mm[Hg] Dr. Talya Nichols Work Phone: [facility] 05-24-2022 16:11-0400 Heart rate 97 /min Dr. Talya Nichols Work Phone: [facility] 05-24-2022 16:11-0400 Inhaled oxygen flow rate 3 L/min Dr. Talya Nichols Work Phone: [facility] 05-24-2022 16:11-0400 Respiratory rate 26 /min Dr. Talya Nichols Work Phone: [facility] 05-24-2022 16:11-0400 SaO2% (BldA) [Mass fraction] 96 % Dr. Talya Nichols Work Phone: [facility] 05-24-2022 16:11-0400 Systolic blood pressure 150 mm[Hg] Dr. Talya Nichols Work Phone: [facility] 05-24-2022 11:08-0400 Body height 165.[address] Talya Nichols Work Phone: [facility] 05-24-2022 11:08-0400 Body mass index (BMI) [Ratio] 33.1 kg/m2 Dr. Talya Nichols Work Phone: [facility] 05-24-2022 11:08-0400 Body weight 90.[address] Talya Nichols Work Phone: [facility] 05-02-2022 09:27-0500 Body mass index (BMI) [Ratio] 31.1 kg/m2 Dr. Talya Nichols Work Phone: [facility] 05-02-2022 09:27-0500 Body weight 84.[address] Talya Nichols Work Phone: [facility] 05-02-2022 09:27-0500 Diastolic blood pressure 73 mm[Hg] Dr. Talya Nichols Work Phone: [facility] 05-02-2022 09:27-0500 Heart rate 67 /min Dr. Talya Nichols Work Phone: [facility] 05-02-2022 09:27-0500 Inhaled oxygen flow rate 2 L/min Dr. Talya Nichols Work Phone: [facility] 05-02-2022 09:27-0500 Respiratory rate 20 /min Dr. Talya Nichols Work Phone: [facility] 05-02-2022 09:27-0500 SaO2% (BldA) [Mass fraction] 95 % Dr. Talya Nichols Work Phone: [facility] 05-02-2022 09:27-0500 Systolic blood pressure 141 mm[Hg] Dr. Talya Nichols Work Phone: [facility] 04-13-2022 11:43-0500 SaO2% (BldA) [Mass fraction] 94 % Dr. Talya Nichols Work Phone: [facility] 04-13-2022 11:07-0500 Inhaled oxygen flow rate 2 L/min Dr. Talya Nichols Work Phone: [facility] 04-13-2022 10:00-0500 Respiratory rate 20 /min Dr. Talya Nichols Work Phone: [facility] 04-13-2022 09:49-0500 Body temperature 97.9 [degF] Dr. Talya Nichols Work Phone: [facility] 04-13-2022 09:49-0500 Diastolic blood pressure 64 mm[Hg] Dr. Talya Nichols Work Phone: [facility] 04-13-2022 09:49-0500 Heart rate 95 /min Dr. Talya Nichols Work Phone: [facility] 04-13-2022 09:49-0500 Systolic blood pressure 152 mm[Hg] Dr. Talya Nichols Work Phone: [facility] 04-13-2022 05:40-0500 Body weight 89.[address] Talya Nichols Work Phone: [facility] 04-12-2022 14:10-0500 Body height 165.[address] Talya Nichols Work Phone: [facility] 04-11-2022 23:35-0500 Body mass index (BMI) [Ratio] 32.3 kg/m2 Dr. Talya Nichols Work Phone: [facility] 04-11-2022 22:42-0500 Body temperature 97.4 [degF] Dr. Talya Nichols Work Phone: [facility] 04-11-2022 22:42-0500 Diastolic blood pressure 55 mm[Hg] Dr. Talya Nichols Work Phone: [facility] 04-11-2022 22:42-0500 Heart rate 98 /min Dr. Talya Nichols Work Phone: [facility] 04-11-2022 22:42-0500 Inhaled oxygen flow rate 4 L/min Dr. Talya Nichols Work Phone: [facility] 04-11-2022 22:42-0500 Respiratory rate 24 /min Dr. Talya Nichols Work Phone: [facility] 04-11-2022 22:42-0500 SaO2% (BldA) [Mass fraction] 98 % Dr. Talya Nichols Work Phone: [facility] 04-11-2022 22:42-0500 Systolic blood pressure 177 mm[Hg] Dr. Talya Nichols Work Phone: [facility] 04-11-2022 18:11-0500 Body height 165.[address] Talya Nichols Work Phone: [facility] 04-11-2022 18:11-0500 Body mass index (BMI) [Ratio] 34.9 kg/m2 Dr. Talya Nichols Work Phone: [facility] 04-11-2022 18:11-0500 Body weight 95.[address] Talya Nichols Work Phone: [facility] 03-16-2022 11:17-0500 Heart rate 80 /min Dr. Talya Nichols Work Phone: [facility] 03-16-2022 11:17-0500 Respiratory rate 20 /min Dr. Talya Nichols Work Phone: [facility] 03-16-2022 09:00-0500 Body temperature 97.9 [degF] Dr. Talya Nichols Work Phone: [facility] 03-16-2022 09:00-0500 Diastolic blood pressure 42 mm[Hg] Dr. Talya Nichols Work Phone: [facility] 03-16-2022 09:00-0500 Inhaled oxygen flow rate 2 L/min Dr. Talya Nichols Work Phone: [facility] 03-16-2022 09:00-0500 SaO2% (BldA) [Mass fraction] 99 % Dr. Talya Nichols Work Phone: [facility] 03-16-2022 09:00-0500 Systolic blood pressure 107 mm[Hg] Dr. Talya Nichols Work Phone: [facility] 03-15-2022 03:13-0500 Body weight 85.[address] Talya Nichols Work Phone: [facility] 03-12-2022 12:40-0500 Body height 165.[address] Talya Nichols Work Phone: [facility] Work Phone: 03-12-2022 03:41-0500 Body mass index (BMI) [Ratio] 73.3 kg/m2 Dr. Talya Nichols Work Phone: [facility] 12-16-2021 16:00-0400 Inhaled oxygen flow rate 2 L/min Dr. Talya Nichols Work Phone: [facility] 12-16-2021 14:13-0400 Heart rate 110 /min Dr. Talya Nichols Work Phone: [facility] 12-16-2021 14:13-0400 Respiratory rate 24 /min Dr. Talya Nichols Work Phone: [facility] 12-16-2021 13:46-0400 Diastolic blood pressure 56 mm[Hg] Dr. Talya Nichols Work Phone: [facility] 12-16-2021 13:46-0400 Systolic blood pressure 158 mm[Hg] Dr. Talya Nichols Work Phone: [facility] 12-16-2021 13:39-0400 Body temperature 97.2 [degF] Dr. Talya Nichols Work Phone: [facility] 12-16-2021 13:39-0400 SaO2% (BldA) [Mass fraction] 99 % Dr. Talya Nichols Work Phone: [facility] 12-16-2021 06:00-0400 Body weight 91.[address] Talya Nichols Work Phone: [facility] 12-13-2021 14:18-0400 Body height 165.[address] Talya Nichols Work Phone: [facility] Work Phone: 12-13-2021 14:18-0400 Body mass index (BMI) [Ratio] 33 kg/m2 Dr. Talya Nichols Work Phone: [facility] 12-08-2021 13:19-0400 Heart rate 75 /min [facility] Work Phone: 12-08-2021 13:19-0400 SaO2% (BldA) [Mass fraction] 93 % [facility] Work Phone: 12-08-2021 13:05-0400 Respiratory rate 24 /min Dr. Talya Nichols Work Phone: [facility] Work Phone: 12-08-2021 08:37-0400 Body temperature 98.4 [degF] [facility] Work Phone: 12-08-2021 08:37-0400 Diastolic blood pressure 81 mm[Hg] [facility] Work Phone: 12-08-2021 08:37-0400 Respiratory rate 20 /min [facility] Work Phone: 12-08-2021 08:37-0400 Systolic blood pressure 195 mm[Hg] [facility] Work Phone: 12-08-2021 08:35-0400 Body height 165.1 cm [facility] Work Phone: 12-08-2021 08:35-0400 Body mass index (BMI) [Ratio] 34 kg/m2 [facility] Work Phone: 12-08-2021 08:35-0400 Body weight 92.6 kg [facility] Work Phone: 04-23-2021 15:48-0500 Heart rate 96 /min RADHA YADAV MD [facility] 04-23-2021 15:48-0500 Respiratory rate 20 /min RADHA YADAV MD [facility] 04-23-2021 14:45-0500 Diastolic blood pressure 87 mm[Hg] RADHA YADAV MD [facility] 04-23-2021 14:45-0500 Heart rate 101 /min RADHA YADAV MD [facility] 04-23-2021 14:45-0500 Respiratory rate 20 /min RADHA YADAV MD [facility] 04-23-2021 14:45-0500 Systolic blood pressure 133 mm[Hg] RADHA YADAV MD [facility] 04-23-2021 14:05-0500 Heart rate 107 /min RADHA YADAV MD [facility] 04-23-2021 14:05-0500 Respiratory rate 22 /min RADHA YADAV MD [facility] 04-23-2021 13:50-0500 Diastolic blood pressure 90 mm[Hg] RADHA YADAV MD [facility] 04-23-2021 13:50-0500 Systolic blood pressure 135 mm[Hg] RADHA YADAV MD [facility] Encounters Encounter Date Encounter Type Care Provider Facility Start: 08-01-2024 End: 08-01-[address] Yuridia Hernandez MD Work Phone: [facility] Work Phone: Start: 08-01-2024 End: 08-01-[address] Manuela Miller [place] Work Phone: Start: 08-01-2024 End: 08-01-2024 ambulatory Manuela Washburn Facility:[facility] Start: 07-14-2024 End: 07-14-2024 Patient encounter procedure Liliya Troncoso [facility] Work Phone: Start: 07-14-2024 End: 07-14-2024 ambulatory Liliya [place] [place]: 07-04-2024 End: 07-04-[address] Manuela Miller [place] Work Phone: Start: 07-04-2024 End: 07-04-2024 ambulatory Manuela Washburn Facility:[facility] Start: 06-30-2024 End: 06-30-[address] Yuridia Hernandez MD -[facility] Work Phone: Start: 06-30-2024 End: 06-30-2024 ambulatory Yuridia Hernandez Facility:[facility] Start: 06-25-2024 Non-patient / Non-visit Dr. Sarai Alcantara MD -[facility] Work Phone: Start: 06-24-2024 Non-patient / Non-visit Dr. Sarai Alcantara MD -[facility] Work Phone: Start: 06-23-2024 ambulatory Tracy Angel [facility] Start: 06-23-2024 End: 06-25-2024 Evaluation and management of inpatient Dr. Tracy Angel MD -[facility] Work Phone: Start: 05-28-[address] Andre Duarte MD -[facility] Start: 05-28-2024 End: 05-28-[address] Andre Duarte MD -[facility] Work Phone: Start: 05-28-2024 End: 05-28-2024 ambulatory [facility] Start: 04-03-[address] [facility] Start: 04-02-2024 End: 04-02-[address] Andre Duarte MD -[facility] Work Phone: Start: 04-02-2024 End: 04-02-2024 ambulatory [facility] Start: 03-24-2024 End: 03-24-[address] Andre Duarte MD -[facility] Work Phone: Start: 03-24-2024 End: 03-24-2024 ambulatory [facility] Start: 03-17-2024 End: 03-17-2024 Patient encounter procedure Fredy Joy DO [facility] Work Phone: Start: 03-17-2024 End: 03-17-2024 ambulatory Fredy Benita [facility] Start: 03-14-2024 End: 03-14-[address] Yuridia Hernandez MD -Laboratory, [facility] Start: 03-14-2024 End: 03-14-2024 ambulatory Yuridia Hernandez OLS Facility:[facility] Start: 03-02-2024 Non-patient / Non-visit Dr. Sarai Alcantara MD -[facility] Work Phone: Start: 03-01-2024 Non-patient / Non-visit Dr. Sarai Alcantara MD -[facility] Work Phone: Start: 03-01-2024 ambulatory Sarai Alcantara Facility :[facility] Start: 03-01-2024 Non-patient / Non-visit Fredyalba Joy DO -[facility] Start: 02-29-2024 Non-patient / Non-visit Fredyalba Joy DO -[facility] Start: 02-29-2024 Non-patient / Non-visit Dr. Sarai Alcantara MD -[facility] Work Phone: Start: 02-28-2024 ambulatory Sarai Alcantara [facility] Start: 02-28-2024 End: 03-02-2024 Evaluation and management of inpatient Dr. Sarai Alcantara MD -Pro[facility] Unit Work Phone: Start: 02-28-2024 [facility] Work [facility] Start: 02-28-2024 ambulatory Yuridia Mary [facility] Start: 02-21-2024 End: 02-21-2024 ambulatory Yuridia Hernandez Facility:[facility] Start: 02-11-2024 End: 02-11-2024 ambulatory Yuridia Hernandez Facility:[facility] Start: 02-03-2024 ambulatory Erika Deras ty:[facility] Start: 02-03-2024 End: 02-04-2024 Evaluation and management of inpatient John Anders Facility:[facility] Start: 01-22-2024 End: 01-22-2024 ambulatory Manuela Washburn Facility:[facility] Start: 01-10-2024 End: 01-10-2024 Emergency department patient visit Yuridia Hernandez Facility:[facility] Start: 01-09-2024 End: 01-09-2024 ambulatory Talya Nichols Facility:[facility] Start: 01-09-2024 End: 01-09-2024 ambulatory Liliya Yomiosvaldomelodie Facility:[facility] Start: 12-27-2023 ambulatory Fredy Joy Facility :[facility] Start: 12-26-2023 ambulatory Yuridia Hernandez [facility] Start: 12-26-2023 End: 12-28-2023 Evaluation and management of inpatient Yuridia Hernandez Facility:[facility] Start: 12-13-2023 End: 12-13-2023 ambulatory Manuela Wu Facility:[facility] Start: 12-10-2023 ambulatory Fredy Joy [facility] :[facility] Start: 12-10-2023 ambulatory Yuridia Hernandez [facility] Start: 12-08-2023 ambulatory Alexeyisaac Jayshree [facility] Start: 12-06-2023 End: 12-10-2023 Evaluation and management of inpatient Jayapracaities Stephany Facility:[facility] Start: 12-06-2023 ambulatory Anderson Hammond Facil [facility]y:[facility] Start: 12-05-2023 End: 12-05-2023 ambulatory Yuridia Hernandez Facility:[facility] Start: 12-02-2023 End: 12-02-2023 Emergency department patient visit Yuridia Hernandez Facility:[facility] Start: 11-23-2023 End: 11-23-2023 ambulatory Yuridia Hernandez Facility:[facility] Start: 11-21-2023 ambulatory Yuridia Hernandez Facility:[facility] Start: 11-18-2023 ambulatory Sarai Shannon Koram Facility :[facility] Start: 11-18-2023 End: 11-20-2023 Evaluation and management of inpatient Sarai Shannon Koram Facility:[facility] Start: 11-16-2023 Encounter for general adult medical examination without abnormal findings Yuridia Hernandez [facility] Start: 11-15-2023 ambulatory Yuridia Hernandez [facility] Start: 11-14-2023 End: 11-16-2023 Evaluation and management of inpatient Michelle Wu Facility:[facility] Start: 11-14-2023 ambulatory Michelle Washburn [facility] Start: 11-07-2023 End: 11-07-2023 ambulatory Yuridia Hernandez Facility:[facility] Start: 10-24-2023 ambulatory Talya Nichols Facility :[facility] Start: 08-17-2023 ambulatory TALYA NICHOLS DO Facil ity:B Start: 08-17-2023 End: 08-21-2023 Outreach Lab TALYA NICHOLS DO [facility] Start: 07-03-2023 End: 07-07-2023 ambulatory TALYA NICHOLS DO Facility:[facility] Start: 06-27-2023 End: 06-27-2023 Emergency department patient visit Dr. Talya Nichols Work Phone: [facility] Work Phone: Start: 06-08-2023 End: 06-11-2023 Evaluation and management of inpatient AHMET CLARK MD [facility] Start: 06-08-2023 End: 06-08-2023 Emergency department patient visit DR MARGARET RILEY DO [facility] Start: 06-08-2023 End: 06-08-2023 ambulatory TALYA NICHOLS DO Facility:[facility] Start: 06-08-2023 End: 06-08-2023 Patient encounter procedure TALYA NICHOLS DO [facility] Start: 05-25-2023 End: 05-25-2023 Emergency department patient visit ANNY DA SILVA MD [facility] Start: 05-24-2023 End: 05-24-2023 ambulatory TALYA NICHOLS DO Facility:[facility] Start: 05-24-2023 End: 05-24-2023 Patient encounter procedure TALYA NICHOLS [facility] Start: 05-17-2023 End: 05-17-2023 ambulatory TALYA NICHOLS Facility:[facility] Start: 05-17-2023 End: 05-17-2023 Patient encounter procedure TALYA NICHOLS DO [facility] Start: 05-07-2023 End: 05-08-2023 ambulatory TALYA MAGDALENA DO Facility:[facility] Start: 05-07-2023 End: 05-08-2023 Observation DELIA JEFFERSON PROCESS SAFETY MANAGEMENT ENGINEER-OFFSET MACHINE OPERATOR [facility] Start: 05-04-2023 End: 05-10-[address] Talya Nichols Work Phone: [facility] Work Phone: Start: 05-04-2023 End: 05-10-[address] Talya Nichols Work Phone: [facility] Start: 04-30-2023 End: 05-01-2023 Emergency department patient visit Dr. Talya Nichols Work Phone: [facility] Work Phone: Start: 04-26-2023 Non-patient / Non-visit Dr. Talya Nichols Work Phone: [facility] Work Phone: Start: 04-26-2023 Non-patient / Non-visit Dr. Talya Nichols Work Phone: [facility] Start: 04-25-2023 Non-patient / Non-visit Dr. Talya Nichols Work Phone: [facility] Work Phone: Start: 04-25-2023 Non-patient / Non-visit Dr. Talya Nichols Work Phone: [facility] Start: 04-24-2023 Non-patient / Non-visit Dr. Talya Nichols Work Phone: [facility] Work Phone: Start: 04-24-2023 End: 04-26-2023 Evaluation and management of inpatient Dr. Talya Nichols Work Phone: [facility]Pro[facility] Care Unit Work Phone: Start: 04-23-2023 End: 04-23-[address] Talya Nichols Work Phone: [facility] Work Phone: Start: 04-13-2023 End: 04-13-2023 ambulatory TALYA NICHOLS DO Facility:[facility] Start: 04-13-2023 End: 04-13-2023 Patient encounter procedure TALYA NICHOLS DO [facility] Start: 04-07-2023 End: 04-07-2023 Emergency department patient visit Dr. Talya Nichols Work Phone: [facility] Work Phone: Start: 04-02-2023 End: 04-02-[address] Talya Nichols Work Phone: [facility] Work Phone: Start: 04-02-2023 Non-patient / Non-visit Dr. Talya Nichols Work Phone: [facility] Start: 04-02-2023 End: 04-02-2023 Admission to same day surgery center Dr. Talya Nichols Work Phone: [facility]Endoscopy Work Phone: Start: 04-02-2023 End: 04-02-[address] Talya Nichols Work Phone: [facility] Work Phone: Start: 03-21-2023 End: 03-21-2023 Patient encounter procedure KHURRAM ERICKSON MD [facility] Start: 03-21-2023 End: 03-21-2023 ambulatory TALYA NICHOLS DO Facility:[facility] Start: 03-09-2023 Non-patient / Non-visit Dr. Talya Nichols Work Phone: [facility] Start: 03-09-2023 Non-patient / Non-visit Dr. Talya Nichols Work Phone: [facility] Work Phone: Start: 03-08-2023 Non-patient / Non-visit Dr. Talya Nichols Work Phone: [facility] Start: 03-08-2023 Non-patient / Non-visit Dr. Talya Nichols Work Phone: [facility] Work Phone: Start: 03-07-2023 Non-patient / Non-visit Dr. Talya Nichols Work Phone: [facility] Start: 03-07-2023 End: 03-09-2023 Evaluation and management of inpatient Dr. Talya Nichols Work Phone: [facility]Pro[facility] Care Unit Work Phone: Start: 02-28-2023 End: 02-28-2023 ambulatory TALYA NICHOLS DO Facility:[facility] Start: 02-28-2023 End: 02-28-2023 Patient encounter procedure TALYA NICHOLS DO [facility] Start: 02-21-2023 End: 02-25-2023 ambulatory TALYA NICHOLS DO Facility:[facility] Start: 02-21-2023 End: 02-21-[address] Talya Nichols Work Phone: [facility] Work Phone: Start: 02-20-2023 End: 02-20-2023 ambulatory TALYA NICHOLS DO Facility:[facility] Start: 02-20-2023 End: 02-20-2023 Patient encounter procedure KHURRAM ERICKSON MD [facility] Start: 02-15-2023 Non-patient / Non-visit Dr. Talya Nichols Work Phone: [facility] Work Phone: Start: 02-14-2023 Non-patient / Non-visit Dr. Talya Nichols Work Phone: [facility] Work Phone: Start: 02-14-2023 Non-patient / Non-visit Dr. Talya Nichols Work Phone: [facility] Start: 02-13-2023 End: 02-15-2023 Evaluation and management of inpatient Dr. Talya Nichols Work Phone: [facility]Intensive Care Unit Work Phone: Start: 02-08-2023 End: 02-08-2023 Emergency department patient visit Dr. Talya Nichols Work Phone: [facility] Work Phone: Start: 02-07-2023 End: 02-07-2023 ambulatory TALYA NICHOLS DO Facility:[facility] Start: 02-07-2023 End: 02-07-2023 Patient encounter procedure TALYA NICHOLS DO [facility] Start: 02-02-2023 End: 02-02-2023 ambulatory TALYA NICHOLS DO Facility:[facility] Start: 02-02-2023 End: 02-02-2023 Patient encounter procedure TALYAMICHAEL NICHOLS DO [facility] Start: 01-23-2023 End: 01-23-2023 ambulatory TALYA NICHOLS DO Facility:[facility] Start: 01-19-2023 End: 01-19-2023 ambulatory TALYA NICHOLS DO Facility:[facility] Start: 01-19-2023 End: 01-19-2023 Patient encounter procedure TALYA Brenner MAGDALENA DO [facility] Start: 01-19-2023 End: 01-19-2023 Well adult monitoring check done TALYA NICHOLS DO [facility] Start: 01-19-2023 End: 01-19-2023 ambulatory TALYA NICHOLS DO Facility:[facility] Start: 12-11-2022 End: 12-11-[address] Talya Nichols Work Phone: [facility] Work Phone: Start: 12-11-2022 End: 12-11-[address] Talya Nichols Work Phone: [facility] Start: 11-28-2022 End: 11-28-2022 ambulatory ANCA TY MD Facility:[facility] Start: 11-28-2022 End: 11-28-2022 Patient encounter procedure ANCA TY MD [facility] Start: 11-24-2022 End: 11-24-2022 ambulatory MELONIE BULLARD PROCESS SAFETY MANAGEMENT ENGINEER - OFFSET MACHINE OPERATOR Facility:[facility] Start: 11-24-2022 End: 11-24-2022 Patient encounter procedure MELONIE BULLARD PROCESS SAFETY MANAGEMENT ENGINEER - OFFSET MACHINE OPERATOR [facility] Start: 11-18-2022 Non-patient / Non-visit Dr. Talya Nichols Work Phone: [facility] Work Phone: Start: 11-17-2022 Non-patient / Non-visit Dr. Talya Nichols Work Phone: [facility] Work Phone: Start: 11-16-2022 Non-patient / Non-visit Dr. Talya Nichols Work Phone: [facility] Start: 11-16-2022 End: 11-18-2022 Evaluation and management of inpatient [facility] Work Phone: Start: 11-08-2022 End: 11-08-2022 ambulatory TALYA NICHOLS DO Facility:[facility] Start: 11-08-2022 End: 11-08-2022 Patient encounter procedure TALYA NICHOLS DO [facility] Start: 10-31-2022 End: 10-31-2022 ambulatory TALYA NICHOLS DO Facility:[facility] Start: 10-24-2022 End: 10-24-2022 ambulatory TALYA NICHOLS DO Facility:[facility] Start: 10-24-2022 End: 10-24-2022 Patient encounter procedure TALYA NICHOLS DO [facility] Start: 10-22-2022 End: 10-23-2022 Emergency department patient visit Dr. Talya Nichols Work Phone: [facility] Work Phone: Start: 10-19-2022 End: 10-19-2022 ambulatory TALYA NICHOLS DO Facility:[facility] Start: 07-06-2022 End: 07-06-[address] Talya Nichols Work Phone: [facility] Work Phone: Start: 06-16-2022 End: 06-16-2022 Patient encounter procedure PACO VAZQUEZ PROCESS SAFETY MANAGEMENT ENGINEER-OFFSET MACHINE OPERATOR [facility] Start: 06-09-2022 End: 06-09-2022 Patient encounter procedure PACO VAZQUEZ PROCESS SAFETY MANAGEMENT ENGINEER-OFFSET MACHINE OPERATOR [facility] Start: 06-06-2022 End: 06-06-2022 Patient encounter procedure TALYA NICHOLS DO [facility] Start: 05-25-2022 Non-patient / Non-visit Dr. Talya Nichols Work Phone: [facility] Start: 05-24-2022 End: 05-26-2022 Evaluation and management of inpatient Dr. Talya Nichols Work Phone: [facility] Start: 05-24-2022 End: 05-26-[address] Talya Nichols Work Phone: [facility] Work Phone: Start: 05-02-2022 End: 05-02-[address] Talya Nichols Work Phone: [facility] Start: 04-13-2022 Non-patient / Non-visit Dr. Talya Nichols Work Phone: [facility] Start: 04-12-2022 Non-patient / Non-visit Dr. Talya Nichols Work Phone: [facility] Start: 04-11-2022 Non-patient / Non-visit Dr. Talya Nichols Work Phone: [facility] Start: 04-11-2022 End: 04-13-2022 Evaluation and management of inpatient Dr. Talya Nichols Work Phone: [facility]Pro[facility] Unit Start: 03-22-2022 End: 03-22-2022 Patient encounter procedure TALYA NICHOLS DO [facility] Start: 03-16-2022 Non-patient / Non-visit Dr. Talya Nichols Work Phone: [facility] Start: 03-16-2022 Non-patient / Non-visit Dr. Talya Nichols Work Phone: [facility] Start: 03-15-2022 Non-patient / Non-visit Dr. Talya Nichols Work Phone: [facility] Start: 03-15-2022 Non-patient / Non-visit Dr. Talya Nichols Work Phone: [facility] Start: 03-14-2022 Non-patient / Non-visit Dr. Talya Nichols Work Phone: [facility] Start: 03-14-2022 Non-patient / Non-visit Dr. Talya Nichols Work Phone: [facility] Start: 03-13-2022 Non-patient / Non-visit Dr. Talya Nichols Work Phone: [facility] Start: 03-13-2022 Non-patient / Non-visit Dr. Talya Nichols Work Phone: [facility] Start: 03-12-2022 Non-patient / Non-visit Dr. Talya Nichols Work Phone: [facility] Start: 03-12-2022 Non-patient / Non-visit Dr. Talya Nichols Work Phone: [facility] Start: 03-12-2022 End: 03-16-2022 Evaluation and management of inpatient Dr. Talya Nichols Work Phone: [facility] 2 Start: 01-03-2022 End: 01-03-2022 Patient encounter procedure PAOC VAZQUEZ PROCESS SAFETY MANAGEMENT ENGINEER-OFFSET MACHINE OPERATOR [facility] Start: 12-16-2021 Non-patient / Non-visit Dr. Talya Nichols Work Phone: [facility] Start: 12-15-2021 Non-patient / Non-visit Dr. Talya Nichols Work Phone: [facility] Start: 12-14-2021 End: 12-16-2021 Non-patient / Non-visit Dr. Talya Nichols Work Phone: [facility] Start: 12-13-2021 End: 12-16-2021 Evaluation and management of inpatient Dr. Talya Nichols Work Phone: [facility] 3 Start: 12-13-2021 End: 12-16-[address] Talya Nichols Work Phone: [facility] Work Phone: Start: 12-08-2021 End: 12-08-2021 Emergency department patient visit [facility] Start: 11-24-2021 End: 11-24-2021 Patient encounter procedure TALYA NICHOLS DO [facility] Start: 04-23-2021 End: 04-23-2021 Emergency department patient visit RADHA YADAV MD [facility] Procedures Date Procedure Procedure Detail Performing [...] Work Phone: Start: 06-09-2023 Echocardiography DAMARIS POLLARD NADIAOFFSET MACHINE OPERATOR Comment on above: (06/09/2023) Summary: 1. Left [...] Phone: Start: 03-15-2022 Cardiac catheterization MELONIE BULLARD PROCESS SAFETY MANAGEMENT ENGINEER - OFFSET MACHINE OPERATOR Comment on above: Left main with 25% stenosis, LAD with mi ld luminal irregularities , diagonal 1 with 50% stenosis, LCx and RCA with mild luminal irregularities Start: 03-12-2022 Plain chest X-ray Dr. Talya Nichols Work Phone: Start: 03-12-2022 Echocardiography MELONIE BULLARD PROCESS SAFETY MANAGEMENT ENGINEER - OFFSET MACHINE OPERATOR Comment on above: EF 65% Start: 12-15-2021 [...] Activity Detail Author Start: 06-25-2024 Patient discharge [facility] Start: 06-24-2024 [facility] Start: 06-23-2024 Application of elastic bandage [facility] Start: 06-23-2024 Assessment of risk of venous thromboembolism [facility] Start: 06-23-2024 Care regimes management [facility] Start: 06-23-2024 Fall prevention [facility] Start: 06-23-2024 Inhalation therapy procedure [facility] Start: 06-23-2024 Insertion of catheter into peripheral vein [facility] Start: 06-23-2024 Introduction of urinary catheter [facility] Start: 06-23-2024 Measuring intake and output [facility] Start: 06-23-2024 Methicillin resistant Staphylococcus aureus screening test [facility] Start: 06-23-2024 Notification of physician [facility] Start: 06-23-2024 Oxygen therapy [facility] Start: 06-23-2024 Providing care according to standard [facility] Start: 06-23-2024 Provision of activity privileges [facility] Start: 06-23-2024 Referral to occupational therapist [facility] Start: 06-23-2024 Referral to service [facility] Start: 06-23-2024 End: 06-23-2024 [facility] Start: 06-23-2024 Following clinical pathway protocol [facility] Start: 06-23-2024 Verification routine [facility] Start: 06-23-2024 Respiratory pathogens DNA and RNA panel - Respiratory specimen by JOSH with probe detection [facility] Start: 06-23-2024 Admission procedure [facility] Start: 06-23-2024 Hospital admission, emergency, from emergency room, medical nature [facility] Start: 06-23-2024 [facility] Start: 03-02-2024 Patient discharge [facility] Start: 02-29-2024 [facility] Start: 02-29-2024 Referral to gastroenterology service [facility] Start: 02-29-2024 Application of intermittent pneumatic compression device [facility] Start: 02-28-2024 Following clinical pathway protocol [facility] Start: 02-28-2024 Transfusion of blood product [facility] Start: 02-28-2024 Assessment of risk of venous thromboembolism [facility] Start: 02-28-2024 Care regimes management [facility] Start: 02-28-2024 Insertion of catheter into peripheral vein [facility] Start: 02-28-2024 Measuring intake and output [facility] Start: 02-28-2024 Notification of physician [facility] Start: 02-28-2024 Oxygen therapy [facility] Start: 02-28-2024 Providing care according to standard [facility] Start: 02-28-2024 Provision of activity privileges [facility] Start: 02-28-2024 Referral to occupational therapist [facility] Start: 02-28-2024 Referral to service [facility] Start: 02-28-2024 End: 02-28-2024 [facility] Start: 02-28-2024 Admission procedure [facility] Start: 02-28-2024 Administration of blood product [facility] Start: 02-28-2024 Inhalation therapy procedure [facility] Start: 02-28-2024 Patient referral to [facility] Start: 06-27-2023 [facility] Start: 05-01-2023 [facility] Start: 04-26-2023 Patient discharge [facility] Start: 04-25-2023 Referral to service [facility] Start: 04-25-2023 Referral to real estate administrator [facility] Start: 04-25-2023 Inhalation therapy procedure [facility] Start: 04-24-2023 Assessment of risk of venous thromboembolism [facility] Start: 04-24-2023 Care regimes management [facility] Start: 04-24-2023 Catheterization of vein [facility] Start: 04-24-2023 Elevation of affected extremity [facility] Start: 04-24-2023 Insertion of catheter into peripheral vein [facility] Start: 04-24-2023 Measuring intake and output [facility] Start: 04-24-2023 Notification of physician [facility] Start: 04-24-2023 Patient education [facility] Start: 04-24-2023 Patient referral to [facility] Start: 04-24-2023 Providing care according to standard [facility] Start: 04-24-2023 Provision of activity privileges [facility] Start: 04-24-2023 Referral to occupational therapist [facility] Start: 04-24-2023 Referral to service [facility] Start: 04-24-2023 [facility] Start: 04-24-2023 Following clinical pathway protocol [facility] Start: 04-24-2023 Verification routine [facility] Start: 04-24-2023 Admission procedure [facility] Start: 04-24-2023 Electrocardiographic procedure [facility] Start: 04-24-2023 Hospital admission, emergency, from emergency room, medical nature [facility] Start: 04-24-2023 Oxygen therapy [facility] Start: 04-24-2023 [facility] Start: 04-07-2023 [facility] Start: 04-07-2023 [facility] Start: 04-02-2023 Egd insert guide wire dilator passage esophagus EGD GUIDE WIRE INSERTION [facility] Start: 04-02-2023 Patient discharge [facility] Start: 03-09-2023 Enteric Bacteriology Enteric Bacteriology [facility] Start: 03-09-2023 Patient discharge [facility] Start: 03-08-2023 Referral to service [facility] Start: 03-08-2023 Care regimes management [facility] Start: 03-08-2023 Notification of physician [facility] Start: 03-08-2023 [facility] Start: 03-08-2023 Enteric precautions [facility] Start: 03-08-2023 Inhalation therapy procedure [facility] Start: 03-07-2023 Following clinical pathway protocol [facility] Start: 03-07-2023 Application of intermittent pneumatic compression device [facility] Start: 03-07-2023 Assessment of risk of venous thromboembolism [facility] Start: 03-07-2023 Insertion of catheter into peripheral vein [facility] Start: 03-07-2023 Oxygen therapy [facility] Start: 03-07-2023 Providing care according to standard [facility] Start: 03-07-2023 Provision of activity privileges [facility] Start: 03-07-2023 Referral to gastroenterology service [facility] Start: 03-07-2023 Referral to occupational therapist [facility] Start: 03-07-2023 Referral to service [facility] Start: 03-07-2023 [facility] Start: 03-07-2023 Verification routine [facility] Start: 03-07-2023 Admission procedure [facility] Start: 03-07-2023 Leukocyte reduced red blood cells [facility] Start: 03-07-2023 [facility] Start: 03-07-2023 Hospital admission, emergency, from emergency room, medical nature [facility] Start: 03-07-2023 Administration of blood product [facility] Start: 03-07-2023 [facility] Start: 02-15-2023 Patient discharge [facility] Start: 02-14-2023 Referral to occupational therapist [facility] Start: 02-14-2023 Referral to service [facility] Start: 02-14-2023 Thyroid stimulating hormone measurement [facility] Start: 02-14-2023 [facility] Start: 02-14-2023 Administration of blood product [facility] Start: 02-14-2023 Following clinical pathway protocol [facility] Start: 02-14-2023 Consultation [facility] Start: 02-14-2023 Inhalation therapy procedure [facility] Start: 02-13-2023 Oxygen therapy [facility] Start: 02-13-2023 Care regimes management [facility] Start: 02-13-2023 Notification of physician [facility] Start: 02-13-2023 Provision of activity privileges [facility] Start: 02-13-2023 Assessment of risk of venous thromboembolism [facility] Start: 02-13-2023 Insertion of catheter into peripheral vein [facility] Start: 02-13-2023 Measuring intake and output [facility] Start: 02-13-2023 Providing care according to standard [facility] Start: 02-13-2023 Respiratory therapy [facility] Start: 02-13-2023 Verification routine [facility] Start: 02-13-2023 End: 02-13-2023 [facility] Start: 02-13-2023 Admission procedure [facility] Start: 02-13-2023 End: 02-13-2023 Blood culture [facility] Start: 02-13-2023 Pulmonary ventilation perfusion study [facility] Start: 02-13-2023 [facility] Start: 02-13-2023 Bacteria identified in Blood by Culture Blood Culture [facility] Start: 02-08-2023 [facility] Start: 02-08-2023 [facility] Start: 11-18-2022 Patient discharge [facility] Start: 11-17-2022 Referral to service [facility] Start: 11-17-2022 Referral to service [facility] Start: 11-17-2022 Oxygen therapy [facility] Start: 11-17-2022 Notification of physician [facility] Start: 11-17-2022 Referral to gastroenterology service [facility] Start: 11-17-2022 Care regimes management [facility] Start: 11-17-2022 Administration of blood product [facility] Start: 11-16-2022 Care planning and problem solving actions [facility] Start: 11-16-2022 Transfusion of blood product [facility] Start: 11-16-2022 [facility] Start: 11-16-2022 Administration of blood product [facility] Start: 11-16-2022 Following clinical pathway protocol [facility] Start: 11-16-2022 Leukocyte reduced red blood cells [facility] Start: 11-16-2022 [facility] Start: 11-16-2022 Admission procedure [facility] Start: 11-16-2022 Administration of blood product [facility] Start: 11-16-2022 [facility] Start: 11-16-2022 Patient referral to dietitian [facility] Start: 10-22-2022 [facility] Start: 05-26-2022 Patient discharge [facility] Start: 05-24-2022 Dual pressure spontaneous ventilation support [facility] Start: 05-24-2022 Fluid restriction [facility] Start: 05-24-2022 Following clinical pathway protocol [facility] Start: 05-24-2022 Assessment of risk of venous thromboembolism [facility] Start: 05-24-2022 Care regimes management [facility] Start: 05-24-2022 Incentive spirometry [facility] Start: 05-24-2022 Insertion of catheter into peripheral vein [facility] Start: 05-24-2022 Measuring intake and output [facility] Start: 05-24-2022 Oxygen therapy [facility] Start: 05-24-2022 Providing care according to standard [facility] Start: 05-24-2022 Provision of activity privileges [facility] Start: 05-24-2022 Referral to occupational therapist [facility] Start: 05-24-2022 Referral to service [facility] Start: 05-24-2022 [facility] Start: 05-24-2022 Verification routine [facility] Start: 05-24-2022 Admission procedure [facility] Start: 05-24-2022 Inhalation therapy procedure [facility] Start: 04-13-2022 Patient discharge [facility] Start: 04-11-2022 Following clinical pathway protocol [facility] Start: 04-11-2022 Assessment of risk of venous thromboembolism [facility] Start: 04-11-2022 Catheterization of vein [facility] Start: 04-11-2022 Incentive spirometry [facility] Start: 04-11-2022 Insertion of catheter into peripheral vein [facility] Start: 04-11-2022 Measuring intake and output [facility] Start: 04-11-2022 Oxygen therapy [facility] Start: 04-11-2022 Providing care according to standard [facility] Start: 04-11-2022 Provision of activity privileges [facility] Start: 04-11-2022 Care regimes management [facility] Start: 04-11-2022 Notification of physician [facility] Start: 04-11-2022 Admission procedure [facility] Start: 04-11-2022 End: 04-11-2022 [facility] Start: 03-16-2022 Patient discharge [facility] Start: 03-15-2022 Patient referral [facility] Work Phone: Start: 03-15-2022 End: 03-15-2022 [facility] Start: 03-15-2022 Notification of physician [facility] Start: 03-15-2022 Provision of activity privileges [facility] Start: 03-15-2022 Scheduling [facility] Start: 03-15-2022 Taking patient vital signs [facility] Start: 03-15-2022 Vascular disease risk assessment [facility] Start: 03-15-2022 Inhalation therapy procedure [facility] Start: 03-14-2022 Catheterization of vein [facility] Start: 03-14-2022 Medication not administered [facility] Start: 03-14-2022 Notification of physician [facility] Start: 03-14-2022 Preoperative care [facility] Start: 03-14-2022 [facility] Start: 03-14-2022 [facility] Start: 03-13-2022 Catheterization of vein [facility] Start: 03-13-2022 Medication not administered [facility] Start: 03-13-2022 Notification of physician [facility] Start: 03-13-2022 Preoperative care [facility] Start: 03-13-2022 [facility] Start: 03-12-2022 Referral to service [facility] Start: 03-12-2022 Referral to occupational therapist [facility] Start: 03-12-2022 Referral to real estate administrator [facility] Start: 03-12-2022 Patient referral to dietitian [facility] Start: 03-12-2022 Assessment of risk of venous thromboembolism [facility] Start: 03-12-2022 Care regimes management [facility] Start: 03-12-2022 Elevation of affected extremity [facility] Start: 03-12-2022 Fluid restriction [facility] Start: 03-12-2022 Incentive spirometry [facility] Start: 03-12-2022 Insertion of catheter into peripheral vein [facility] Start: 03-12-2022 Measuring intake and output [facility] Start: 03-12-2022 Notification of physician [facility] Start: 03-12-2022 Oxygen therapy [facility] Start: 03-12-2022 Patient education [facility] Start: 03-12-2022 Providing care according to standard [facility] Start: 03-12-2022 Provision of activity privileges [facility] Start: 03-12-2022 Referral to [facility] Start: 03-12-2022 [facility] Start: 03-12-2022 Following clinical pathway protocol [facility] Start: 03-12-2022 Admission procedure [facility] Start: 12-16-2021 Patient discharge [facility] Start: 12-14-2021 Application of intermittent pneumatic compression device [facility] Start: 12-13-2021 Consultation for treatment [facility] Start: 12-13-2021 Assessment of risk of venous thromboembolism [facility] Start: 12-13-2021 Care regimes management [facility] Start: 12-13-2021 Fall prevention [facility] Start: 12-13-2021 Incentive spirometry [facility] Start: 12-13-2021 Inhalation therapy procedure [facility] Start: 12-13-2021 Insertion of catheter into peripheral vein [facility] Start: 12-13-2021 Introduction of urinary catheter [facility] Start: 12-13-2021 Measuring intake and output [facility] Start: 12-13-2021 Oxygen therapy [facility] Start: 12-13-2021 Providing care according to standard [facility] Start: 12-13-2021 Provision of activity privileges [facility] Start: 12-13-2021 Referral to occupational therapist [facility] Start: 12-13-2021 Referral to service [facility] Start: 12-13-2021 [facility] Start: 12-13-2021 Following clinical pathway protocol [facility] Start: 12-13-2021 Verification routine [facility] Work Phone: Start: 12-13-2021 Admission procedure [facility] Start: 12-13-2021 [facility] Start: 12-08-2021 Inhalation therapy procedure [facility] Work Phone: Alanine aminotransfe rase [Enzymatic activity/volume] in Serum or Plasma [facility] Albumin [Mass/volume ] in Serum or Plasma [facility] Alkaline phosphatase [Enzymatic activity/volume] in Serum or Plasma [facility] Anion gap measurement [facility] Aspartate aminotrans ferase [Enzymatic activity/volume] in Serum or Plasma [facility] Bilirubin, total measurement [facility] BUN/Creatinine ratio [facility] Calcium [Mass/volume ] in Serum or Plasma [facility] Carbon dioxide, tota l [Moles/volume] in Serum or Plasma [facility] CBC W Auto Different ial panel - Blood [facility] Chloride [Moles/volu me] in Serum or Plasma [facility] Cobalamin (Vitamin B 12) [Mass/volume] in Serum or Plasma [facility] Comprehensive metabo lic 2000 panel - Serum or Plasma [facility] Creatinine [Moles/vo lume] in Serum or Plasma [facility] Ferritin [Mass/volum e] in Serum or Plasma [facility] Folate [Moles/volume ] in Serum or Plasma [facility] Gastrointestinal pat hogens panel - Stool by JOSH with probe detection [facility] Giardia lamblia Ag [ Presence] in Stool by Immunoassay [facility] Glucose [Mass/volume ] in Serum or Plasma [facility] Hematocrit [Volume F raction] of Blood [facility] Hemoglobin [Mass/vol ume] in Blood [facility] Iron and Iron bindin g capacity panel - Serum or Plasma [facility] Leukocytes [#/volume] in Blood [facility] Magnesium [Mass/volu me] in Serum or Plasma [facility] Magnesium measurement [facility] Magnesium measurement [facility] Mean corpuscular hem oglobin concentration determination [facility] Mean corpuscular hem oglobin determination [facility] Measurement of renal function [facility] Neutrophil count [facility] Neutrophil percent differential count [facility] Patient Education [facility] Work Phone: Patient referral [facility] Work Phone: Platelets [#/volume] in Blood [facility] Potassium [Moles/vol ume] in Serum or Plasma [facility] Red blood cell count [facility] Red cell distributio n width determination [facility] Reticulocyte count [facility] Serum inorganic phos phate measurement [facility] Sodium [Moles/volume ] in Serum or Plasma [facility] Total protein measurement [facility] Troponin T.cardiac [Mass/volume] in Serum or Plasma by High sensitivity method [facility] Urea nitrogen [Mass/ volume] in Serum or Plasma [facility] Immunizations Immunization Date Immunization Notes Care Provider [facility] 01-19-2023 Pneumococcal conjuga te PCV20, polysaccharide EQF117 conjugate, adjuvant, PF; Translations: [Prevnar 20] TALYA NICHOLS DO [facility] 12-14-2022 influenza, injectabl e, quadrivalent, preservative free Dr. Yuridia Hernandez MD Work Phone: [facility] 12-14-2022 influenza, high dose seasonal, preservative-free; Translations: [Fluad Quadrivalent PF ] TALYA NICHOLS DO [facility] 12-28-[address] Talya Nichols Work Phone: [facility] 12-28-2021 SARS-CoV-2 (CV19)mRNA-1273 bivalent vac TALYA NICHOLS DO [facility] 12-28-2021 SARSCoV2 (CV19)mRNA-1273(6y+ bival spencer TALYA NICHOLS DO [facility] 12-27-2021 influenza virus vacc ine, unspecified formulation TALYA NICHOLS DO [facility] 12-27-2021 influenza, injectabl e, quadrivalent, preservative free [facility] 12-27-2021 influenza, seasonal, injectable Dr. Talya Nichols Work Phone: [facility] 01-10-2021 SARS-CoV-2 mRNA (tozinameran) vaccine RADHA YADAV MD [facility] 11-08-2020 influenza virus vacc ine, unspecified formulation RADHA YADAV MD [facility] 06-19-2020 SARS-CoV-2 mRNA (tozinameran) vaccine RADHA YADAV MD [facility] 05-25-2020 SARS-CoV-2 mRNA (tozinameran) vaccine RADHA YADAV MD [facility] 11-19-2019 influenza virus vacc ine, unspecified formulation RADHA YADAV MD [facility] 12-23-2018 influenza virus vacc ine, unspecified formulation RADHA YADAV MD [facility] 01-31-2016 pneumococcal polysaccharide vaccine, 23 valent RADHA YADAV MD [facility] 07-31-2014 pneumococcal polysaccharide vaccine, 23 valent RADHA YADAV MD [facility] 12-09-2009 tetanus and diphther ia toxoids, adsorbed, preservative free, for adult use (5 Lf of tetanus toxoid and 2 Lf of diphtheria toxoid) RADHA YADAV MD [facility] Payers Date Payer Category Payer Self-pay [id number] 2023 Medicare [id number] 2013 Medicare [id number] 1940 Unknown [id number] 2.16.8 40.1.081036.3.579.2. 1939 Unknown [id number] 2.16.8 40.1.735417.3.579.2.627 1939 Unknown [id number] 2.16.8 40.1.572651.3.579.2.7 1939 Unknown [id number] 2.16.8 40.1.996279.3.579.2.627 1939 Unknown [id number] 2.16.8 40.1.945440.3.579.2.7 1939 Unknown [id number] 2.16.8 40.1.677026.3.579.2.627 1939 Unknown [id number] 2.16.8 40.1.049361.3.579.2.627 1939 Unknown [id number] 2.16.8 40.1.159113.3.579.2.627 1939 Unknown [id number] 2.16.8 40.1.734655.3.579.2.627 1939 Unknown [id number] 2.16.8 40.1.035161.3.579.2.627 1939 Unknown [id number] 2.16.8 40.1.439828.3.579.2.62 1939 Unknown [id number] 2.16.8 40.1.037807.3.579.2.62 1939 Unknown [id number] 2.16.8 40.1.679472.3.579.2.62 1939 Unknown [id number] 2.16.8 40.1.858843.3.579.2.62 1939 Unknown [id number] 2.16.8 40.1.100357.3.579.2.62 1939 Unknown [id number] 2.16.8 40.1.124612.3.579.2.627 1939 Unknown [id number] 2.16.8 40.1.444785.3.579.2.62 1939 Unknown [id number] 2.16.8 40.1.938726.3.579.2.627 1939 Unknown [id number] 2.16.8 40.1.224230.3.579.2.62 1939 Unknown [id number] 2.16.8 40.1.922368.3.579.2.627 1939 Unknown [id number] 2.16.8 40.1.972818.3.579.2.627 1939 Unknown [id number] 2.16.8 40.1.720965.3.579.2.627 1939 Unknown [id number] 2.16.8 40.1.908519.3.579.2.627 1939 Unknown [id number] 2.16.8 40.1.740656.3.579.2.62 1939 Unknown [id number] 2.16.8 40.1.232208.3.579.2.627 1939 Unknown [id number] 2.16.8 40.1.608454.3.579.2.62 1939 Unknown [id number] 2.16.8 40.1.589680.3.579.2.627 1939 Unknown [id number] 2.16.8 40.1.221902.3.579.2.627 Unknown [id number] 2.16.8 40.1.302900.3.579.2.462 Unknown [id number] 2.16.8 40.1.389833.3.579.2.462 Unknown [id number] 2.16.8 40.1.130501.3.579.2.462 Unknown [id number] 2.16.8 40.1.719398.3.579.2.462 Unknown [id number] 2.16.8 40.1.532624.3.579.2.462 Unknown [id number] 2.16.8 40.1.688599.3.579.2.462 Unknown [id number] 2.16.8 40.1.502673.3.579.2.462 Unknown [id number] 2.16.8 40.1.199086.3.579.2.462 Unknown [id number] 2.16.8 40.1.300266.3.579.2.462 Unknown [id number] 2.16.8 40.1.069781.3.579.2.462 Unknown [id number] 2.16.8 40.1.092512.3.579.2.462 Unknown [id number] 2.16.8 40.1.928646.3.579.2.462 Unknown [id number] 2.16.8 40.1.209013.3.579.2.462 Unknown [id number] 2.16.8 40.1.298215.3.579.2.462 Unknown [id number] 2.16.8 40.1.610668.3.579.2.462 Unknown [id number] 2.16.8 40.1.266347.3.579.2.462 Unknown [id number] 2.16.8 40.1.359631.3.579.2.462 Unknown [id number] 2.16.8 40.1.577828.3.579.2.462 Unknown [id number] 2.16.8 40.1.128135.3.579.2.462 Unknown [id number] 2.16.8 40.1.959651.3.579.2.462 Unknown [id number] 2.16.8 40.1.232380.3.579.2.462 Unknown [id number] 2.16.8 40.1.642827.3.579.2.462 Unknown [id number] 2.16.8 40.1.280633.3.579.2.462 Unknown [id number] 2.16.8 40.1.412194.3.579.2.462 Unknown [id number] 2.16.8 40.1.565279.3.579.2.462 Unknown [id number] 2.16.8 40.1.952627.3.579.2.462 Unknown [id number] 2.16.8 40.1.417316.3.579.2.462 Unknown [id number] 2.16.8 40.1.596265.3.579.2.462 Unknown [id number] 2.16.8 40.1.627708.3.579.2.462 Unknown [id number] 2.16.8 40.1.838577.3.579.2.462 Unknown [id number] 2.16.8 40.1.057330.3.579.2.462 Unknown [id number] 2.16.8 40.1.723256.3.579.2.462 Unknown [id number] 2.16.8 40.1.341396.3.579.2.462 Unknown [id number] 2.16.8 40.1.177036.3.579.2.462 Unknown [id number] 2.16.8 40.1.893122.3.579.2.462 Unknown [id number] 2.16.8 40.1.440512.3.579.2.462 Unknown [id number] 2.16.8 40.1.678944.3.579.2.462 Unknown [id number] 2.16.8 40.1.928745.3.579.2.462 Unknown [id number] 2.16.8 40.1.511345.3.579.2.462 Unknown [id number] 2.16.8 40.1.271705.3.579.2.462 Unknown [id number] 2.16.8 40.1.601663.3.579.2.462 Unknown [id number] 2.16.8 40.1.769329.3.579.2.462 Unknown [id number] 2.16.8 40.1.610808.3.579.2.462 Unknown [id number] 2.16.8 40.1.617547.3.579.2.462 Unknown [id number] 2.16.8 40.1.222074.3.579.2.462 Unknown [id number] 2.16.8 40.1.540137.3.579.2.462 Unknown [id number] 2.16.8 40.1.480917.3.579.2.462 Unknown [id number] 2.16.8 40.1.712419.3.579.2.462 Unknown [id number] 2.16.8 40.1.956975.3.579.2.462 Unknown [id number] 2.16.8 40.1.638750.3.579.2.462 Unknown [id number] 2.16.8 40.1.706419.3.579.2.462 Unknown [id number] 2.16.8 40.1.660977.3.579.2.462 Unknown [id number] 2.16.8 40.1.592623.3.579.2.462 Unknown [id number] 2.16.8 40.1.555683.3.579.2.462 Unknown [id number] 2.16.8 40.1.698432.3.579.2.462 Unknown [id number] 2.16.8 40.1.137102.3.579.2.462 Unknown [id number] 2.16.8 40.1.029732.3.579.2.462 Unknown [id number] 2.16.8 40.1.317175.3.579.2.462 Unknown [id number] 2.16.8 40.1.059693.3.579.2.462 Unknown [id number] 2.16.8 40.1.802383.3.579.2.462 Unknown [id number] 2.16.8 40.1.634279.3.579.2.462 Unknown [id number] 2.16.8 40.1.976452.3.579.2.462 Unknown [id number] 2.16.8 40.1.842896.3.579.2.462 Unknown [id number] 2.16.8 40.1.629697.3.579.2.462 Unknown [id number] 2.16.8 40.1.208688.3.579.2.462 Unknown [id number] 2.16.8 40.1.759784.3.579.2.462 Unknown [id number] 2.16.8 40.1.135449.3.579.2.462 Social History Date Type Detail Facility Start: 02-27-2019 End: 06-23-2024 Ex-smoker (finding) [facility] Comment on above: no smoke exposure Sex Assigned At [facility] Start: 12-08-2021 End: 06-27-2023 Tobacco smoking status NHIS Unknown if ever smoked [facility] Start: 1940 Sex Assigned At Male [facility] Start: 06-23-2024 End: 06-25-2024 Sex Male (finding) [facility] Medical Equipment Procedure Code Equipment Code Equipment Origin al Text Equipment Identifier Dates Blood Glucose Te st Strips Start: 09-21-2020 See Instructions , One touch ultra blue test strips #60 pt to test twice daily., # 1 EA, 11 Refill(s), Pharmacy: [facility], Controlled diabetes mellitus with hyperglycemia Abnormal blood sugar, 162.4, cm, 07/06/21 13:45:00 EDT, Hei... Start: 09-27-2021 See Instructions , One touch Delica Lancet 33g, 1 box of 100, testing 2 times daily, # 1 EA, 11 Refill(s), Pharmacy: [id number], Controlled diabetes mellitus with hyperglycemia Abnormal blood sugar, 162.5, cm, 10/05/21 14:24:00 EDT, Heigh... Start: 10-26-2021 See Instructions , One touch ultra blue test strips #60 pt to test twice daily., # 1 EA, 11 Refill(s), Pharmacy: [facility], Controlled diabetes mellitus with hyperglycemia Abnormal blood sugar, 162.4, cm, 07/06/21 13:45:00 EDT, Hei... Start: 09-27-2021 See Instructions , One touch Delica Lancet 33g, 1 box of 100, testing 2 times daily, # 1 EA, 11 Refill(s), Pharmacy: [facility], Controlled diabetes mellitus with hyperglycemia Abnormal blood sugar, 162.5, cm, 10/05/21 14:24:00 EDT, Heigh... Start: 10-26-2021 See Instructions , One touch ultra blue test strips #60 pt to test twice daily., # 1 EA, 11 Refill(s), Pharmacy: [facility], Controlled diabetes mellitus with hyperglycemia Abnormal blood sugar, 162.4, cm, 07/06/21 13:45:00 EDT, Hei... Start: 09-27-2021 See Instructions , One touch Delica Lancet 33g, 1 box of 100, testing 2 times daily, # 1 EA, 11 Refill(s), Pharmacy: [facility], Controlled diabetes mellitus with hyperglycemia Abnormal blood sugar, 162.5, cm, 10/05/21 14:24:00 EDT, Heigh... Start: 10-26-2021 See Instructions , One touch ultra blue test strips #60 pt to test twice daily., # 1 EA, 11 Refill(s), [facility]acy: [facility] #[id number], Controlled diabetes mellitus with hyperglycemia Type 2 diabetes mellitus with hemoglobin A1c goal of less than 7.5%, 165... Start: 06-02-2022 See Instructions , One touch Delica Lancet 33g, 1 box of 100, testing 2 times daily, # 1 EA, 11 Refill(s), Pharmacy: [facility] #[id number], Controlled diabetes mellitus with hyperglycemia Type 2 diabetes mellitus with hemoglobin A1c goal of less than 7.5%... Start: 06-02-2022 See Instructions , One touch ultra blue test strips #60 pt to test twice daily., # 1 EA, 11 Refill(s), Pharmacy: [facility] #[id number], Controlled diabetes mellitus with hyperglycemia Type 2 diabetes mellitus with hemoglobin A1c goal of less than 7.5%, 165... Start: 06-02-2022 See Instructions , One touch Delica Lancet 33g, 1 box of 100, testing 2 times daily, # 1 EA, 11 Refill(s), Pharmacy: [facility] #[id number], Controlled diabetes mellitus with hyperglycemia Type 2 diabetes mellitus with hemoglobin A1c goal of less than 7.5%... Start: 06-02-2022 See Instructions , One touch ultra blue test strips #60 pt to test twice daily., # 1 EA, 11 Refill(s), Pharmacy: [facility] #[id number], Controlled diabetes mellitus with hyperglycemia Type 2 diabetes mellitus with hemoglobin A1c goal of less than 7.5%, 165... Start: 06-02-2022 See Instructions , One touch Delica Lancet 33g, 1 box of 100, testing 2 times daily, # 1 EA, 11 Refill(s), [facility]acy: [facility] #[id number], Controlled diabetes mellitus with hyperglycemia Type 2 diabetes mellitus with hemoglobin A1c goal of less than 7.5%... Start: 06-02-2022 See Instructions , One touch ultra blue test strips #60 pt to test twice daily., # 1 EA, 11 Refill(s), Pharmacy: [facility] #[id number], Controlled diabetes mellitus with hyperglycemia Type 2 diabetes mellitus with hemoglobin A1c goal of less than 7.5%, 165.1, cm, 06/02/22 13:23:00 EDT, Height, 85.3, kg, 06/02/22 13:23:00 EDT, Dosing Weight Start: 06-02-2022 See Instructions , One touch Delica Lancet 33g, 1 box of 100, testing 2 times daily, # 1 EA, 11 Refill(s), Pharmacy: [facility] #[id number], Controlled diabetes mellitus with hyperglycemia Type 2 diabetes mellitus with hemoglobin A1c goal of less than 7.5%, 165.1, cm, 06/02/22 13:23:00 EDT, Height, 85.3, kg, 06/02/22 13:23:00 EDT, Dosing Weight Start: 06-02-2022 See Instructions , One touch ultra blue test strips #60 pt to test twice daily., # 1 EA, 11 Refill(s), Pharmacy: [facility] #[id number], Controlled diabetes mellitus with hyperglycemia Type 2 diabetes mellitus with hemoglobin A1c goal of less than 7.5%, 165.1, cm, 06/02/22 13:23:00 EDT, Height, 85.3, kg, 06/02/22 13:23:00 EDT, Dosing Weight Start: 06-02-2022 See Instructions , One touch Delica Lancet 33g, 1 box of 100, testing 2 times daily, # 1 EA, 11 Refill(s), [facility]: [facility] #[id number], Controlled diabetes mellitus with hyperglycemia Type 2 diabetes mellitus with hemoglobin A1c goal of less than 7.5%, 165.1, cm, 06/02/22 13:23:00 EDT, Height, 85.3, kg, 06/02/22 13:23:00 EDT, Dosing Weight Start: 06-02-2022 See Instructions , One touch ultra blue test strips #60 pt to test twice daily., # 1 EA, 11 Refill(s), [facility]: [facility] #[id number], Controlled diabetes mellitus with hyperglycemia Type 2 diabetes mellitus with hemoglobin A1c goal of less than 7.5%, 165.1, cm, 06/02/22 13:23:00 EDT, Height, 85.3, kg, 06/02/22 13:23:00 EDT, Dosing Weight Start: 06-02-2022 See Instructions , One touch Delica Lancet 33g, 1 box of 100, testing 2 times daily, # 1 EA, 11 Refill(s), [facility]acy: [facility] #[id number], Controlled diabetes mellitus with hyperglycemia Type 2 diabetes mellitus with hemoglobin A1c goal of less than 7.5%, 165.1, cm, 06/02/22 13:23:00 EDT, Height, 85.3, kg, 06/02/22 13:23:00 EDT, Dosing Weight Start: 06-02-2022 See Instructions , One touch ultra blue test strips #60 pt to test twice daily., # 1 EA, 11 Refill(s), [facility]acy: [facility] #[id number], Controlled diabetes mellitus with hyperglycemia Type 2 diabetes mellitus with hemoglobin A1c goal of less than 7.5%, 165.1, cm, 06/02/22 13:23:00 EDT, Height, 85.3, kg, 06/02/22 13:23:00 EDT, Dosing Weight Start: 06-02-2022 See Instructions , One touch Delica Lancet 33g, 1 box of 100, testing 2 times daily, # 1 EA, 11 Refill(s), [facility]acy: [facility] #[id number], Controlled diabetes mellitus with hyperglycemia Type 2 diabetes mellitus with hemoglobin A1c goal of less than 7.5%, 165.1, cm, 06/02/22 13:23:00 EDT, Height, 85.3, kg, 06/02/22 13:23:00 EDT, Dosing Weight Start: 06-02-2022 See Instructions , One touch ultra blue test strips #60 pt to test twice daily., # 1 EA, 11 Refill(s), Pharmacy: [facility] #[id number], Controlled diabetes mellitus with hyperglycemia Type 2 diabetes mellitus with hemoglobin A1c goal of less than 7.5%, 165.1, cm, 06/02/22 13:23:00 EDT, Height, 85.3, kg, 06/02/22 13:23:00 EDT, Dosing Weight Start: 06-02-2022 See Instructions , One touch Delica Lancet 33g, 1 box of 100, testing 2 times daily, # 1 EA, 11 Refill(s), Pharmacy: [facility] #[id number], Controlled diabetes mellitus with hyperglycemia Type 2 diabetes mellitus with hemoglobin A1c goal of less than 7.5%, 165.1, cm, 06/02/22 13:23:00 EDT, Height, 85.3, kg, 06/02/22 13:23:00 EDT, Dosing Weight Start: 06-02-2022 See Instructions , One touch ultra blue test strips #60 pt to test twice daily., # 1 EA, 11 Refill(s), Pharmacy: [facility] #[id number], Controlled diabetes mellitus with hyperglycemia Type 2 diabetes mellitus with hemoglobin A1c goal of less than 7.5%, 165.1, cm, 06/02/22 13:23:00 EDT, Height, 85.3, kg, 06/02/22 13:23:00 EDT, Dosing Weight Start: 06-02-2022 See Instructions , One touch Delica Lancet 33g, 1 box of 100, testing 2 times daily, # 1 EA, 11 Refill(s), Pharmacy: [facility] #[id number], Controlled diabetes mellitus with hyperglycemia Type 2 diabetes mellitus with hemoglobin A1c goal of less than 7.5%, 165.1, cm, 06/02/22 13:23:00 EDT, Height, 85.3, kg, 06/02/22 13:23:00 EDT, Dosing Weight Start: 06-02-2022 See Instructions , One touch ultra blue test strips #60 pt to test twice daily., # 1 EA, 11 Refill(s), [facility]: [facility] #[id number], Controlled diabetes mellitus with hyperglycemia Type 2 [...] 1 EA, 11 Refill(s), [facility]: [facility] #[id number], Controlled diabetes mellitus with hyperglycemia Type 2 diabetes mellitus with hemoglobin A1c goal of less than 7.5%, 165.1, cm, 06/02/22 13:23:00 EDT, Height, 85.3, kg, 06/02/22 13:23:00 EDT, Dosing Weight Start: 06-02-2022 See Instructions , One touch Delica Lancet 33g, 1 box of 100, testing 2 times daily, # 1 EA, 11 Refill(s), [facility]: [facility] #[id number], Controlled diabetes mellitus with hyperglycemia Type 2 diabetes mellitus with hemoglobin A1c goal of less than 7.5%, 165.1, cm, 06/02/22 13:23:00 EDT, Height, 85.3, kg, 06/02/22 13:23:00 EDT, Dosing Weight Start: 06-02-2022 See Instructions , One touch ultra blue test strips #60 pt to test twice daily., # 1 EA, 11 Refill(s), [facility]: [facility] #[id number], Controlled diabetes mellitus with hyperglycemia Type 2 diabetes mellitus with hemoglobin A1c goal of less than 7.5%, 165.1, cm, 06/02/22 13:23:00 EDT, Height, 85.3, kg, 06/02/22 13:23:00 EDT, Dosing Weight Start: 06-02-2022 See Instructions , One touch Delica Lancet 33g, 1 box of 100, testing 2 times daily, # 1 EA, 11 Refill(s), Pharmacy: [facility] #[id number], Controlled diabetes mellitus with hyperglycemia Type 2 diabetes mellitus with hemoglobin A1c goal of less than 7.5%, 165.1, cm, 06/02/22 13:23:00 EDT, Height, 85.3, kg, 06/02/22 13:23:00 EDT, Dosing Weight Start: 06-02-2022 See Instructions , One touch ultra blue test strips #60 pt to test twice daily., # 1 EA, 11 Refill(s), Pharmacy: [facility], Controlled diabetes mellitus with hyperglycemia Type 2 diabetes mellitus with hemoglobin A1c goal of less than 7.5%, 160, cm, 03/02/23 8:17:00 EST, Height, 87.7, kg, 03/02/23 8:17:00 EST, Dosing Weight Start: 03-13-2023 See Instructions , One touch Delica Lancet 33g, 1 box of 100, testing 2 times daily, # 1 EA, 11 Refill(s), Pharmacy: [facility] #[id number], Controlled diabetes mellitus with hyperglycemia Type 2 diabetes mellitus with hemoglobin A1c goal of less than 7.5%, 165.1, cm, 06/02/22 13:23:00 EDT, Height, 85.3, kg, 06/02/22 13:23:00 EDT, Dosing Weight Start: 06-02-2022 See Instructions , One touch ultra blue test strips #60 pt to test twice daily., # 1 EA, 11 Refill(s), Pharmacy: [facility], Controlled diabetes mellitus with hyperglycemia Type 2 diabetes mellitus with hemoglobin A1c goal of less than 7.5%, 160, cm, 03/02/23 8:17:00 EST, Height, 87.7, kg, 03/02/23 8:17:00 EST, Dosing Weight Start: 03-13-2023 See Instructions , One touch Delica Lancet 33g, 1 box of 100, testing 2 times daily, # 1 EA, 11 Refill(s), [facility]acy: [facility] #[id number], Controlled diabetes mellitus with hyperglycemia Type 2 diabetes mellitus with hemoglobin A1c goal of less than 7.5%, 165.1, cm, 06/02/22 13:23:00 EDT, Height, 85.3, kg, 06/02/22 13:23:00 EDT, Dosing Weight Start: 06-02-2022 See Instructions , One touch ultra blue test strips #60 pt to test twice daily., # 1 EA, 11 Refill(s), Pharmacy: [facility], Controlled diabetes mellitus with hyperglycemia Type 2 diabetes mellitus with hemoglobin A1c goal of less than 7.5%, 160, cm, 03/02/23 8:17:00 EST, Height, 87.7, kg, 03/02/23 8:17:00 EST, Dosing Weight Start: 03-13-2023 See Instructions , One touch Delica Lancet 33g, 1 box of 100, testing 2 times daily, # 1 EA, 11 Refill(s), Pharmacy: [facility] #[id number], Controlled diabetes mellitus with hyperglycemia Type 2 diabetes mellitus with hemoglobin A1c goal of less than 7.5%, 165.1, cm, 06/02/22 13:23:00 EDT, Height, 85.3, kg, 06/02/22 13:23:00 EDT, Dosing Weight Start: 06-02-2022 See Instructions , One touch ultra blue test strips #60 pt to test twice daily., # 1 EA, 11 Refill(s), Pharmacy: [facility], Controlled diabetes mellitus with hyperglycemia Type 2 diabetes mellitus with hemoglobin A1c goal of less than 7.5%, 160, cm, 03/02/23 8:17:00 EST, Height, 87.7, kg, 03/02/23 8:17:00 EST, Dosing Weight Start: 03-13-2023 See Instructions , One touch Delica Lancet 33g, 1 box of 100, testing 2 times daily, # 1 EA, 11 Refill(s), Pharmacy: [facility] #[id number], Controlled diabetes mellitus with hyperglycemia Type 2 diabetes mellitus with hemoglobin A1c goal of less than 7.5%, 165.1, cm, 06/02/22 13:23:00 EDT, Height, 85.3, kg, 06/02/22 13:23:00 EDT, Dosing Weight Start: 06-02-2022 See Instructions , One touch ultra blue test strips #60 pt to test twice daily., # 1 EA, 11 Refill(s), Pharmacy: [facility], Controlled diabetes mellitus with hyperglycemia Type 2 diabetes mellitus with hemoglobin A1c goal of less than 7.5%, 160, cm, 03/02/23 8:17:00 EST, Height, 87.7, kg, 03/02/23 8:17:00 EST, Dosing Weight Start: 03-13-2023 See Instructions , One touch Delica Lancet 33g, 1 box of 100, testing 2 times daily, # 1 EA, 11 Refill(s), Pharmacy: [facility] #[id number], Controlled diabetes mellitus with hyperglycemia Type 2 diabetes mellitus with hemoglobin A1c goal of less than 7.5%, 165.1, cm, 06/02/22 13:23:00 EDT, Height, 85.3, kg, 06/02/22 13:23:00 EDT, Dosing Weight Start: 06-02-2022 See Instructions , One touch ultra blue test strips #60 pt to test twice daily., # 1 EA, 11 Refill(s), Pharmacy: [facility], Controlled diabetes mellitus with hyperglycemia Type 2 diabetes mellitus with hemoglobin A1c goal of less than 7.5%, 160, cm, 03/02/23 8:17:00 EST, Height, 87.7, kg, 03/02/23 8:17:00 EST, Dosing Weight Start: 03-13-2023 See Instructions , One touch Delica Lancet 33g, 1 box of 100, testing 2 times daily, # 1 EA, 11 Refill(s), Pharmacy: [facility] #[id number], Controlled diabetes mellitus with hyperglycemia Type 2 diabetes mellitus with hemoglobin A1c goal of less than 7.5%, 165.1, cm, 06/02/22 13:23:00 EDT, Height, 85.3, kg, 06/02/22 13:23:00 EDT, Dosing Weight Start: 06-02-2022 See Instructions , One touch ultra blue test strips #60 pt to test twice daily., # 1 EA, 11 Refill(s), Pharmacy: [facility], Controlled diabetes mellitus with hyperglycemia Type 2 diabetes mellitus with hemoglobin A1c goal of less than 7.5%, 160, cm, 03/02/23 8:17:00 EST, Height, 87.7, kg, 03/02/23 8:17:00 EST, Dosing Weight Start: 03-13-2023 See Instructions , One touch Delica Lancet 33g, 1 box of 100, testing 2 times daily, # 1 EA, 11 Refill(s), Pharmacy: [facility] #[id number], Controlled diabetes mellitus with hyperglycemia Type 2 diabetes mellitus with hemoglobin A1c goal of less than 7.5%, 165.1, cm, 06/02/22 13:23:00 EDT, Height, 85.3, kg, 06/02/22 13:23:00 EDT, Dosing Weight Start: 06-02-2022 See Instructions , One touch ultra blue test strips #60 pt to test twice daily., # 1 EA, 11 Refill(s), Pharmacy: [facility], Controlled diabetes mellitus with hyperglycemia Type 2 diabetes mellitus with hemoglobin A1c goal of less than 7.5%, 160, cm, 03/02/23 8:17:00 EST, Height, 87.7, kg, 03/02/23 8:17:00 EST, Dosing Weight Start: 03-13-2023 See Instructions , One touch Delica Lancet 33g, 1 box of 100, testing 2 times daily, # 1 EA, 11 Refill(s), [facility]: [facility] #[id number], Controlled diabetes mellitus with hyperglycemia Type 2 diabetes mellitus with hemoglobin A1c goal of less than 7.5%, 165.1, cm, 06/02/22 13:23:00 EDT, Height, 85.3, kg, 06/02/22 13:23:00 EDT, Dosing Weight Start: 06-02-2022 See Instructions , One touch ultra blue test strips #60 pt to test twice daily., # 1 EA, 11 Refill(s), Pharmacy: [facility], Controlled diabetes mellitus with hyperglycemia Type 2 diabetes mellitus with hemoglobin A1c goal of less than 7.5%, 160, cm, 03/02/23 8:17:00 EST, Height, 87.7, kg, 03/02/23 8:17:00 EST, Dosing Weight Start: 03-13-2023 See Instructions , One touch Delica Lancet 33g, 1 box of 100, testing 2 times daily, # 1 EA, 11 Refill(s), Pharmacy: [facility] #[id number], Controlled diabetes mellitus with hyperglycemia Type 2 diabetes mellitus with hemoglobin A1c goal of less than 7.5%, 165.1, cm, 06/02/22 13:23:00 EDT, Height, 85.3, kg, 06/02/22 13:23:00 EDT, Dosing Weight Start: 06-02-2022 See Instructions , One touch ultra blue test strips #60 pt to test twice daily., # 1 EA, 11 Refill(s), Pharmacy: [facility], Controlled diabetes mellitus with hyperglycemia Type 2 diabetes mellitus with hemoglobin A1c goal of less than 7.5%, 160, cm, 03/02/23 8:17:00 EST, Height, 87.7, kg, 03/02/23 8:17:00 EST, Dosing Weight Start: 03-13-2023 See Instructions , One touch Delica Lancet 33g, 1 box of 100, testing 2 times daily, # 1 EA, 11 Refill(s), Pharmacy: [facility], Controlled diabetes mellitus with hyperglycemia Type 2 diabetes mellitus with hemoglobin A1c goal of less than 7.5%, 165, cm, 06/14/23 13:33:00 EDT, Height, 181, kg, 06/14/23 13:33:00 EDT, Dosing Weight Start: 06-26-2023 See Instructions , One touch ultra blue test strips #60 pt to test twice daily., # 1 EA, 11 Refill(s), Pharmacy: [facility], Controlled diabetes mellitus with hyperglycemia Type 2 diabetes mellitus with hemoglobin A1c goal of less than 7.5%, 160, cm, 03/02/23 8:17:00 EST, Height, 87.7, kg, 03/02/23 8:17:00 EST, Dosing Weight Start: 03-13-2023 See Instructions , One touch Delica Lancet 33g, 1 box of 100, testing 2 times daily, # 1 EA, 11 Refill(s), Pharmacy: [facility], Controlled diabetes mellitus with hyperglycemia Type 2 diabetes mellitus with hemoglobin A1c goal of less than 7.5%, 165, cm, 06/14/23 13:33:00 EDT, Height, 181, kg, 06/14/23 13:33:00 EDT, Dosing Weight Start: 06-26-2023 Goals Date Patient Goal Desired Activity /State Functional Status Date Assessment Result Facility 06-25-2024 Functional status Chair [facility] Work Phone: 03-02-2024 Functional status Ambulates;Chair [facility] Work Phone: 06-11-2023 Functional Status [facility] 06-11-2023 Functional Status Mod [facility] 06-11-2023 Functional Status Non-Slip footw ear, Room check performed [facility] 06-11-2023 Functional Status [facility] 06-11-2023 Functional Status [facility] 06-11-2023 Functional Status [facility] 06-10-2023 Functional Status Up with assistance [facility] 06-10-2023 Functional Status [facility] 06-10-2023 Functional Status [facility] 06-10-2023 Functional Status 7am-7pm [facility] 06-10-2023 Functional Status [facility] 06-10-2023 Functional Status [facility] 06-09-2023 Functional Status padded oxygen tubing [facility] 06-09-2023 Functional Status [facility] 06-09-2023 Functional Status Dinner Percent 100 [facility] 06-09-2023 Functional Status [facility] 06-09-2023 Functional Status [facility] 06-09-2023 Functional Status Feeding Assistance Inde pendent [facility] 06-09-2023 Functional Status [facility] 06-08-2023 Functional Status [facility] 06-08-2023 Functional Status Maximum assistance [facility] 06-08-2023 Functional Status Standard Safet y ID band on, Allergy Band on, Call device within reach, Bed in low position, Wheels locked [facility] 06-08-2023 Functional Status Identified as high risk, Room located near nursing station [facility] 05-25-2023 Functional Status Independent [facility] 05-25-2023 Functional Status Standard Safet y ID band on, Allergy Band on, Call device within reach, Bed in low position, Wheels locked, Safety level maintained [facility] 05-08-2023 Functional Status Supervised [facility] 05-08-2023 Functional Status Lunch Percent 100 [facility] 05-08-2023 Functional Status Identified as high risk, Fall ID band on, Door open, Non-Slip footwear [facility] 05-08-2023 Functional Status [facility] 05-07-2023 Functional Status [facility] 05-07-2023 Functional Status Demonstrates C orrect Call Light Use Yes [facility] 05-07-2023 Functional Status [facility] 05-07-2023 Functional Status Mobile home [facility] 05-07-2023 Functional Status [facility] 04-26-2023 Functional status Activity Ability Indepe [facility] Work Phone: 04-26-2023 Functional status Ambulates;Chair [facility] Work Phone: 03-09-2023 Functional status Patient Activity Ambula [facility] Work Phone: 03-09-2023 Functional status Activity Abili ty With Assist of 1 [facility] Work Phone: 03-08-2023 Functional status Standard Walker [facility] Work Phone: 02-15-2023 Functional status Bedpan [facility] Work Phone: 11-18-2022 Functional status Activity Abili ty Standby Assist [facility] Work Phone: 11-18-2022 Functional status Patient Activity Ambula [facility] Work Phone: 05-25-2022 Functional status Activity Ability Inde[facility] Work Phone: 04-13-2022 Functional status Chair [facility] Work Phone: 03-16-2022 Functional status Ambulates;Up ad renita;Shawna ir [facility] Work Phone: 12-16-2021 Functional status Ambulates [facility] Work Phone: Mental Status Date Assessment Result Facility 06-25-2024 Cognitive function Voice/Name [facility] Work Phone: 03-02-2024 Cognitive function Voice/Name [facility] Work Phone: 06-11-2023 Mental Status Oriented x 4, Follows simple commands [facility] 06-10-2023 Mental Status [facility] 06-10-2023 Mental Status [facility] 06-09-2023 Mental Status [facility] 06-08-2023 Mental Status Orientation Oriented x 4 [facility] 06-08-2023 Mental Status [facility] 05-25-2023 Mental Status Orientation Oriented x 4 [facility] 05-25-2023 Mental Status [facility] 05-08-2023 Mental Status Oriented x 4 [facility] 05-07-2023 Mental Status [facility] 05-07-2023 Mental Status [facility] 04-26-2023 Cognitive function Voice/Name [facility] Work Phone: 04-02-2023 Cognitive function Voice/Name [facility] Work Phone: 03-09-2023 Cognitive function Voice/Name [facility] Work Phone: 02-14-2023 Cognitive function Voice/Name;To uch/Shaking;Light Pain;Deep Pain [facility] Work Phone: 11-18-2022 Cognitive function Voice/Name [facility] Work Phone: 05-26-2022 Cognitive function Voice/Name [facility] Work Phone: 04-13-2022 Cognitive function Voice/Name [facility] Work Phone: 03-14-2022 Cognitive function Voice/Name [facility] Work Phone: 12-16-2021 Cognitive function Voice/Name [facility] Work Phone: 12-08-2021 Cognitive function Level Of Cons ciousness Awake;Alert;Appropriate;Follow s Commands [facility] Work Phone: Clinical Notes 04-23-2021 to 06-25-2024 Note Date & Type Note Facility 06-25-2024 Consult note [facility] 06-25-2024 Consult note Note Date/Time June 25, 2024 5:29pm [facility] Medical Records Department [address] [facility] [place] [address] Counseling Note - Pharmacy 06/25/24 1448 MR#: [id number] Acct: [id number] Name: BEULAH BRIGHT Rep #:[id number] : 1940 84 From: Rena Song PCP: Dr. Yuridia Hernandez MD Status:ADM I N Y Location: [place] [address] Pharmacy [facility] Service has performed discharge medication reconciliation [...] of their dischargemedications. Patient counseled by pharmacy operations specialistLalit. Medications at Discharge Home Medications atorvastatin 80 [...] 18 mcg inhalation DAILY SOB 05/02/21 vitamins A,C,S-nliw-rhkpto 4,296 mcg-226 mg-90 mg capsule (PreserVision AREDS) [...] Signature (if applicable): Date CC: ~ Signed [facility] Work Phone: [phone]) 657-749404-16-2025 Discharge summary [facility] Medical Records Department [facility] [place] [address] Discharge Summary 06/25/24 1349 MR#: [id number] Acct: [id number] Name: BEULAH BRIGHT Rep #:[id number] : 1940 84 From: Sarai Alcantara MD PCP: Dr. Yuridia Hernandez MD Status:ADM I N Location: [place] [address] Providers Date of Admission: 06/23/24 Date of [...] (1,000 unit) capsule 25 mcg PO DAILY ohsrqln65/21/22 ipratropium 0.5 mg-albuterol 3 mg (2.5 mg base)/3 mL nebulization soln 3 ml inhalation 4X/DAY PRN sob 05/02/21 liothyronine 25 mcg tablet 25 mcg PO DAILY THYROID 05/02/21 tiotropium bromide 18 mcg capsule with inhalation device (Spiriva with HandiHaler) 18 mcg inhalation DAILY SOB 05/02/21 vitamins A,C,Y-ivnp-dzqefu 4,296 mcg-226 mg-90 mg capsule (PreserVision AREDS) [...] (Auto) 80.9 H, Lymph % (Auto) 12.3 L,Beckham % (Auto) 6.1, Eos % (Auto) 0.3, [...] 25 mcg PO DAILY PreserVision AREDS [id number] cgsa-es-vgdm Capsule 1 cap PO BID Jardiance 10 [...] Self Care Charges/Coding Visit Charges Inpatient E&M: 40778 Disch Hosp >30min 06/25/24 1640 Cosigner Signature (if applicable): CC: Dr. Sarai Alcantara MD; Dr. Yuridia Hernandez MD~ Signed [facility]04-16-2025 Discharge summary Author [facility] Note Date/Time June 25, 2024 1:4 9pm [facility] Medical Records Department [address] [place] [address] Instructions for Home/Discharge Instructions 06/25/24 1348 MR#: [id number] Acct: [id number] Name: BEULAH BRIGHT Rep #:[id number] : 1940 84 From: Sarai Alcantara [...] 25 mcg PO DAILY PreserVision AREDS 14320-226-200 ewld-xx-wzep Capsule 1 cap PO BID Jardiance 10 [...] MD; Dr. Yuridia Hernandez MD ~ Signed [facility] Work Phone: 1(161) 368-315104-16-2025 Discharge summary Author Sarai Alcantara [facility] Note Date/Time June 25, 2024 4:4 0pm [facility] Medical Records Department [address] [place] [address] Discharge Summary 06/25/24 1349 MR#: [id number] Acct: [id number] Name: BEULAH BRIGHT Rep #:[id number] : 1940 84 From: Sarai Alcantara MD PCP: Dr. Yuridia Hernandez MD Status:ADM I N Location: [place] [address] Providers Date of Admission: 06/23/24 Date of [...] (1,000 unit) capsule 25 mcg PO DAILY mxikopb59/21/22 ipratropium 0.5 mg-albuterol 3 mg (2.5 mg base)/3 mL nebulization soln 3 ml inhalation 4X/DAY PRN sob 05/02/21 liothyronine 25 mcg tablet 25 mcg PO DAILY THYROID 05/02/21 tiotropium bromide 18 mcg capsule with inhalation device (Spiriva with HandiHaler) 18 mcg inhalation DAILY SOB 05/02/21 vitamins A,C,S-dshg-pjihma 4,296 mcg-226 mg-90 mg capsule (PreserVision AREDS) [...] (Auto) 80.9 H, Lymph % (Auto) 12.3 L,Beckham % (Auto) 6.1, Eos % (Auto) 0.3, [...] 25 mcg PO DAILY PreserVision AREDS 14320-226-200 klzg-xk-vgwv Capsule 1 cap PO BID Jardiance 10 [...] Self Care Charges/Coding Visit Charges Inpatient E&M: 80555 Disch Hosp >30min 06/25/24 1640 <Electronically signed by Sarai Alcantara MD> Cosigner Signature (if applicable): CC: Dr. Sarai Alcantara MD; Dr. Yuridia Hernandez MD~ Signed [facility] Work Phone: 1(592) 187-853904-16-2025 Discharge summary [facility] Medical Records Department [address] [place] [address] Instructions for Home/Discharge Instructions 06/25/24 1348 MR#: [id number] Acct: [id number] Name: BEULAH BRIGHT Javier Rep #:[id number] : 1940 84 From: Sarai Alcantara [...] 25 mcg PO DAILY PreserVision AREDS 14,320-226-200 wbvm-mo-dqyh Capsule 1 cap PO BID Jardiance 10 [...] MD; Dr. Yuridia Hernandez MD ~ Signed [facility]04-16-2025 [facility] Progress note Author [facility] Note Date/Time June 24, 2024 2:1 7pm [facility] Medical Records Department [address] [place] [address] Progress Note 06/24/24 1359 MR#: [id number] Acct: [id number] Name: BEULAH BRIGHT Rep #:[id number] : 1940 84 From: Sarai Alcantara MD PCP: Dr. Yuridia Hernandez MD Status:ADM I N Location: [place] [address] Subjective Subjective Patient seen and examined. He [...] 71.4 H, Lymph % (Auto) 17.7 L, Beckham % (Auto) 6.6, Eos % (Auto) 3.5, [...] 85.0 H, Lymph % (Auto) 13.4 L, Beckham % (Auto) 1.3, Eos % (Auto) 0.0, [...] No acute abnormality is seen. Reading Location: [place] [address] Physical Exam Const alert, oriented x3, no [...] prophylaxis: SCDs Charges/Coding Visit Charges Inpatient E&M: 79243 Subs Hosp L2 06/24/24 1417 <Electronically signed by Sarai Alcantara MD> Sarai Alcantara MD Cosigner Signature (if applicable): CC: ~ Signed [facility] Work Phone: 1(394) 271-154004-15-2025 Progress note [facility] Medical Records Department [address] [place] [address] Progress Note 06/24/24 1359 MR#: [id number] Acct: [id number] Name: BEULAH BRIGHT Rep #:[id number] : 1940 84 From: Sarai Alcantara MD PCP: Dr. Yuridia Hernandez MD Status:ADM I N Location: [place] [address] Subjective Subjective Patient seen and examined. He [...] 71.4 H, Lymph % (Auto) 17.7 L, Beckham % (Auto) 6.6, Eos % (Auto) 3.5, [...] 85.0 H, Lymph % (Auto) 13.4 L, Beckham % (Auto) 1.3, Eos % (Auto) 0.0, [...] No acute abnormality is seen. Reading Location: [place] [address] Physical Exam Const alert, oriented x3, no [...] prophylaxis: SCDs Charges/Coding Visit Charges Inpatient E&M: 31804 Subs Hosp L2 06/24/24 1417 Sarai Alcantara MD Cosigner Signature (if applicable): CC: ~ Signed [facility]04-15-2025 Discharge summary Author Delia Tai [facility] Note Date/Time June 24, 2024 8:2 5am [facility] Medical Records Department [address] [place] [address] Emergency Department Summary 06/23/24 MR#: [id number] Acct: [id number] Name: BEULAH BRIGHT Rep #:[id number] : 1940 84 From: Delia MCKEON PCP: Dr. Yuridia Hernandez MD Status:ADM I N Location: [address] <MIKE Calhoun - Last Filed: 06/23/24 [...] bleed. He is not on blood thinners. [facility] <MIKE Calhoun - Last Filed: 06/23/24 18:10> [facility] Medical History Anemia Acute dyspnea Obesity (BMI [...] catheterization (LHC) (~03/15/22) Atherosclerotic heart disease of [place] coronary artery without angina pectoris Aortic valve [...] with inhalation device (Spiriva with HandiHaler) vitamins A,C,S-zlwp-asrezy 4,296 1 cap PO BID vitamin 12/13/21 [...] <MIKE Calhoun - Last Filed: 06/23/24 18:10> [facility] Narrative Medical decision making narrative: Differential includes [...] 71.4 H Lymph % (Auto) 17.7 L Beckham % (Auto) 6.6 Eos % (Auto) 3.5 [...] No acute abnormality is seen. Reading Location: [place] [address] ED attending interpretation of 1-view chest x-ray shows normal heart size, no acute infiltrate, edema, or effusion. EKG Initial EKG: Attestation: I personally reviewed and interpreted this EKG as follows: Comments: Sinus rhythm with first-degree AV block at [address] changes, no STEMI <Dr. Eric Lester MD - Last Filed: 06/23/24 15:51> [facility] Lab Data Labs: Laboratory Results - [...] 71.4 H Lymph % (Auto) 17.7 L Beckham % (Auto) 6.6 Eos % (Auto) 3.5 [...] No acute abnormality is seen. Reading Location: [place] [address] Treatment and Re-Evaluation Comments:: I have personally [...] your Primary Care Provider. Call [facility] ([phone]) or report to the closest Emergency Room. Call 911 if necessary. 06/23/24 1810 <Electronically signed by Delia MCKEON> Cosigner Signature (if applicable): 06/24/24 0825 <Electronically signed by Eric Lester MD> CC: Dr. Yuridia Hernandez MD ~ Signed [facility] Work Phone: 1(878) 950-262004-15-2025 Discharge summary [facility] Medical Records Department [address] [place] [address] Emergency Department Summary 06/23/24 MR#: [id number] Acct: [id number] Name: BEULAH BRIGHT Rep #:[id number] : 1940 84 From: Delia MCKEON PCP: Dr. Yuridia Hernandez MD Status:ADM I N Location: [place] [address] HPI History of Present Illness Chief Complaint: [...] GI bleed.He is not on blood thinners. [facility] Medical History Anemia Acute dyspnea Obesity [...] catheterization (LHC) (~03/15/22) Atherosclerotic heart disease of [place] coronary artery without angina pectoris Aortic valve [...] with inhalation device (Spiriva with HandiHaler) vitamins A,C,R-fyhn-ghntur 4,296 1 cap PO BID vitamin 12/13/21 [...] 71.4 H Lymph % (Auto) 17.7 L Beckham % (Auto) 6.6 Eos % (Auto) 3.5 [...] No acute abnormality is seen. Reading Location: [place] [address] ED attending interpretation of 1-view chest x-ray [...] 71.4 H Lymph % (Auto) 17.7 L Beckham % (Auto) 6.6 Eos % (Auto) 3.5 [...] No acute abnormality is seen. Reading Location: [place] [address] Treatment and Re-Evaluation Comments:: I have personally [...] your Primary Care Provider. Call [facility] ([phone]) or report to the closest Emergency Room. Call 911 if necessary. 06/23/24 1810 Cosigner Signature (if applicable): 06/24/24 9712 CC: Dr. Yuridia Hernandez MD ~ Signed [facility]04-14-2025 History and physical note Author Tracy Angel [facility] Note Date/Time June 23, 2024 5:5 4pm [facility] Medical Records Department [address] [place] [address] H&P Exam - Hospitalist 06/23/24 1736 MR#: [id number] Acct: [id number] Name: BEULAH BRIGHT Rep #:[id number] : 1940 84 From: Tracy Angel MD PCP: Dr. 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 Charges/Coding Visit Charges Inpatient E&M: 52306 Init Hosp L3 Procedures Hospitalists Procedures: 89472 Advncd Care Plan 30 Min 06/23/24 1754 <Electronically signed by Tracy Angel MD> Cosigner Signature (if applicable): CC: Dr. Tracy Angel MD; Dr. Yuridia Hernandez MD~ Signed [facility] Work Phone: 1(387) 451-768004-14-2025 History and physical note [facility] Medical Records Department [address] [place] [address] H&P Exam - Hospitalist 06/23/24 1734 MR#: [id number] Acct: [id number] Name: BEULAH BRIGHT Rep #:[id number] : 1940 84 From: Tracy Angel MD PCP: Dr. 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 Charges/Coding Visit Charges Inpatient E&M: 38933 Init Hosp L3 Procedures Hospitalists Procedures: 46670 Advncd Care Plan 30 Min 06/23/24 6612 Cosigner Signature (if applicable): CC: Dr. Tracy Angel MD; Dr. Yuridia Hernandez MD~ Signed [facility]04-14-2025 Radiology Diagnostic study note [facility] Imaging Services [address] [place] [address] Chest 1 View (Portable) MR#: [id number] Acct: [id number] Name: BEULAH BRIGHT Rep #: [id number] : 1940 M 84 From: Jomar La MD PCP: Dr. Yuridia Hernandez MD Status: PRE E R Study:Chest 1 View (Portable) Date of Exam: 06/23/24 Exam# [id number] Ordering Dr: Delia Thompson PROCEDURE: CHEST 1 [...] No acute abnormality is seen. Reading Location: [place] [address] CC: Dr. Yuridia Hernandez MD; MIKE Calhoun ~ Inspector Hot Forgings: Signed [facility]03-19-2025 Evaluation note* Diagnosis Onset Date Resolution Status Admit Date Anemia chronic May 28 3:01pm Iron deficiency chronic May 3:01pm COPD exacerbation resolved June 102024 5:35pm Elevated troponin resolved June 102024 5:35pm Chronic anemia inactive June 5:35pm Chronic kidney disease inactive 2024 5:35pm History of gastric ulcer acute July 14, 2024 2:20pm [facility] Work Phone: 1(499) 634-496012-22-2024 [facility]12-19-2024 Evaluation note* Diagnosis Onset Date Resolution Status [...] 5:35pm COPD exacerbation chronic June 102024 5:35pm [facility] Work Phone: 1(163) 346-785011-25-2024 [facility]10-18-2024 [facility]09-30-2024 [facility] 11-20-2023 [facility]09-06-2024 [facility]04-17-2024 Discharge summary Author Dalton Forrest [facility] June 27, 2023 2:49pm Note Date/Time June 27, 2023 1:2 6pm [facility] Medical Records Department [address] [place] [address] Emergency Department Summary 06/27/23 MR#: [id number] Acct: [id number] Name: BEULAH BRIGHT Rep #:[id number] : 1940 83 From: Dalton Forrest [...] more units. He states that gastroenterology, Dr. Jyo, has cauterized his ulcers twice. He is [...] increased shortness of breath over his baseline. [facility] Medical History Acute and chronic respiratory failure with hypoxia Aortic valve stenosis, acquired Atherosclerotic heart disease of [place] coronary artery without angina pectoris CAD (coronary [...] (1,000 unit) capsule 25 mcg PO DAILY hygqdrn84/21/22 [History Last Taken 02/15/23] ipratropium 0.5 mg-albuterol [...] SOB 05/02/21 [History Last Taken 02/15/23] vitamins A,C,K-ywzp-ujptez 4,296 mcg-226 mg-90 mg capsule (PreserVision AREDS) [...] DAILY 06/27/23 [History Last Taken Unknown] vitamins A,C,M-mdgd-msbswd 4,296 mcg-226 mg-90 mg capsule (PreserVision AREDS) [...] % (Auto) 62.3 Lymph % (Auto) 23.7 Beckham % (Auto) 9.6 Eos % (Auto) 3.8 [...] Clarity Clear Urine pH 5.0 Ur Specific Hampton 1.015 Urine Protein 30 H Urine Glucose [...] 2 cap PO BID PreserVision AREDS 14,320-226-200 gzxz-tz-odwr Capsule 1 cap PO BID Jardiance 10 [...] your Primary Care Provider. Call [facility] ([phone]) or report to the closest Emergency Room. Call 911 if necessary. 06/27/23 1449 <Electronically signed by Dalton Forrest MD> Cosigner Signature (if applicable): CC: Dr. Talya Nichols DO ~ Signed [facility] Work Phone: 1(627) 403-806204-01-2024 Hospital Discharge instructions Patient Education 06/11/2023 12:25:18 [...] symptoms. Follow these instructions at home: Take yfot-fsd-mutrrtq and prescription medicines only as told by your health care provider. Weigh yourself daily. Your target weight is lb ( kg). ?Call your health care provider if you gain more than lb ( kg) in a day, or more than lb ( kg) in one week. Eat a heart-healthy diet. Work with a diet and nutrition services assistant (dietitian) to create an eatingplan that is best for you. Keep all follow-up visits as told by your health care provider. This is important. Where to find more information [place] [employer]: www.heart.org Summary Follow the action [...] 04/07/2017 Document Revised: 02/08/2018 Document Reviewed: 04/07/2017 CrowdTorch Patient Education 2020 [employer]. 06/11/2023 12:25:15 Heart Failure, Self Care, Ffzj-ly-Jrqs Heart Failure, Self Care Heart failure is [...] when you have heart failure Medicines Take jboe-vdh-xspawws and prescription medicines only as told by [...] 06/11/2019 Document Revised: 06/10/2019 Document Reviewed: 06/11/2019 [employer] Patient Education 2020 [employer]. 06/11/2023 12:25:09 Heart Failure Eating Plan Heart [...] lifestyle and working with a diet and nutrition services assistant (dietitian) to choose the right foods may [...] cheese. Low-sodium cottage cheese. Fats and oils Turin, canola, soybean, flaxseed, or sunflower oil. Avocado. Sweets and desserts Apple sauce. Granola bars. Sugar-free pudding and gelatin. Frozen fruit bars. Seasoning and other foods Fresh and dried herbs. Lemon or ambler juice. Vinegar. Low-sodium ketchup. Salt- free marinades, [...] vegetables with sauce or seasonings. Creamed vegetables. Nepalese fries. Onion rings. Pickled vegetables and sauerkraut. [...] Salted nuts and seeds. Dairy Whole milk, nbhw-noj-lner, and cream. Buttermilk. Processed cheese, cheese spreads, [...] 07/13/2017 Document Revised: 04/24/2019 Document Reviewed: 07/13/2017 [employer] Patient Education 2020 [employer] Follow Up Care 06/08/2023 19:34:17 With:TALYA NICHOLS DO Address: [address] [place] [address] [place] [address]- [phone] When: only if needed Comments:Please call the office to schedule a follow-up appointment. With:ROJAS AVILA MD Address: [address] [place] [address] [address] [place] [address]- [phone] When:Within 2 Week(s) Comments:Call office within 2 weeks for appointment With:NAMRATA ESPINO MD Address: [address] [place] [address] [facility] [place] [address]- When:Within 2 Week(s) Comments:Please call office within 2 weeks for appointment [facility] 04-01-2024 Note Discharge Instructions Thank you for allowing [facility] to assist you with your healthcare needs. [...] You were transfused blood seen by a real estate administrator and started on IV diuretics (water pills). Please follow-up with your primary care doctor, we will have you follow-up with a real estate administrator for your aortic stenosis (narrow heart valve). Please follow-up with your established belly packer. If you do not have an established belly packer I will provide you with information for a belly packer. Again please contact your primary care doctor soon as possible. Please seek medical assistance if your symptoms recur or worsen. Take care Follow Up Appointments Follow Up with TALYA NICHOLS DO When Only if needed Why: Please call the office to schedule a follow-up appointment. Where: [address] [facility] [place] [address]- [phone] Follow Up with ROJAS AVILA MD When In 2 weeks Why: Call office within 2 weeks for appointment Where: [address] [facility] [address] [place] [address]- [phone] Follow Up with NAMRATA ESPINO MD When In 2 weeks Why: Please call office within 2 weeks for appointment Where: [address] [facility] [place] [address]- The Following Activity and Diet Have Been [...] a day with a meal Pickup at [facility] Changed albuterol-ipratropium (albuterol-ipratropium 2.5 mg-0.5 mg/ 3 mL inhalation solution) 3 Milliliter Nebulized inhalation Four (4) times a day Duration: 30 Days INHALE 3ML VIA NEBULIZER 4 TIMES A DAY NEEDED FOR SHORTNESS OF BREATH OR WHEEZING Pickup at [facility] Changed empagliflozin (Jardiance 10 mg oral tablet) TAKE ONE TABLET BY MOUTH EVERY MORNING Changed furosemide (furosemide 40 mg oral tablet) 1 tab(s) by mouth Every day Pickup at [facility] Changed glimepiride (glimepiride 2 mg oral [...] Generic is making patient cough. Pickup at [facility] Unchanged atorvastatin (atorvastatin 80 mg [...] (2) times daily before meals Pharmacy Information [facility]: [address] [place] [address] [phone] What How Much When Why Comments Stop [...] symptoms. Follow these instructions at home: Take peqj-qsw-zeentag and prescription medicines only as told by your health care provider. Weigh yourself daily. Your target weight is lb ( kg). ? Call your health care provider if you gain more than lb ( kg) in a day, or more than lb ( kg) in one week. Eat a heart-healthy diet. Work with a diet and nutrition services assistant (dietitian) to create an eatingplan that is best for you. Keep all follow-up visits as told by your health care provider. This is important. Where to find more information [place] [employer]: www.heart.org Summary Follow the action [...] Document Reviewed: 04/07/2017 Elsevier Patient Education 2020 [employer] Heart Failure, Self Care Heart failure [...] when you have heart failure Medicines Take ouhb-awq-fglufav and prescription medicines only as told by [...] 06/11/2019 Document Revised: 06/10/2019 Document Reviewed: 06/11/2019 [employer]dTorch Patient Education 2020 [employer]. Heart Failure Eating Plan Heart failure, also called congestive heart failure, occurs when your heart does not pump blood well enough to meet your body's needs for oxygen-rich blood. Heart failure is a long-term (chronic) condition. Living with heart failure can be challenging. However, following your health care provider'sinstructions about a healthy lifestyle and working with a diet and nutrition services assistant (dietitian) to choose the right foods may [...] cheese. Low-sodium cottage cheese. Fats and oils Turin, canola, soybean, flaxseed, or sunflower oil. Avocado. Sweets and desserts Apple sauce. Granola bars. Sugar-free pudding and gelatin. Frozen fruit bars. Seasoning and other foods Fresh and dried herbs. Lemon or ambler juice. Vinegar. Low-sodium ketchup. Salt- free marinades, [...] vegetables with sauce or seasonings. Creamed vegetables. Nepalese fries. Onion rings. Pickled vegetables and sauerkraut. [...] Salted nuts and seeds. Dairy Whole milk, zmcg-rhr-iozc, and cream. Buttermilk. Processed cheese, cheese spreads, [...] and bouillon cubes. Horseradish, ketchup, and mustard. Phaneuf Hospitaltershire sauce. Teriyaki sauce, soy sauce (including [...] 07/13/2017 Document Revised: 04/24/2019 Document Reviewed: 07/13/2017 [employer]ch Patient Education 2020 [employer] Additional Information VACCINATE! IT SAVES LIVES! Members of the community who have not yet received the COVID-19 vaccine and would like to receive it can visit one of [facility] vaccine clinics. There are many vaccine clinic locations within the [facility]. For locations and available times, please visit https://gettheshot.coronavirus.[place].gov/. It is important to note that some COVID mobile vaccine clinics are held outdoors and may be canceled in rainy or stormy conditions. To learn more about pediatric vaccinations (ages 5-11), we invite you to visit the [facility] webpage. https://www.[email or web address].org/pages/4423-Jockj-Nckvhmdwtjy-Xgeuhtcguk-Ezxgm-Cxx stions.htmlTo learn more about the COVID-19 vaccine, we invite you to visit the CDC website for a list of frequently asked questions.https://www.cdc.gov/coronavirus/2019-ncov/vaccines/faq.html [facility] Patient Portal Access Instructions: Stay connected with your healthcare team and access your personal medical information anytime with the [facility] Patient Portal. Please follow the directions below to create your [facility] account: 1.Access the email account you provided upon registration to the hospital/physician office.2.Look for an invitation email from [facility].3.Open the email and access the invitation link: AcceptInvitation to [facility].4.Fill in the required hollis to create your account. To access your account, visit [email or web address]. Click the blue button labeled Access Patient [...] who you will allowto register on the [facility] [facility] Patient Portal for access to your information. You can also access the [facility] [facility] Patient Portal on the [facility] erika. Simply click on Patient Portal and then log into your account. If you would like to receive a full copy of your medical records, please contact the [facility] Medical Records Department by calling [phone], Sunday through Sunday between 8 a.m. and [...] Call your local pharmacy or go to [email or web address] to find one close to you.3.Make use of household items: Use cat litter or old coffee grounds to dispose medications if other options arenot available. Mix your drugs with these household products, seal them in an airtight container andthrow it into the garbage. Call [facility]: [phone] to be sure your drugs can be [...] Failure Action Plan Heart Failure, Self Care, Lpfp-hj-Qyps Heart Failure Eating Plan Medication Leaflets My discharge plan and instructions have been reviewed and explained to me and I,BEULAH BRIGHT understand my current condition and have read and understand these discharge instructions. I have received a written copy of the plan/instructions. If I have questions, I am aware that I should contact my doctor. Patient/Registered Nurse [facility] Signature: Date/Time: Relationship to Patient: Witness Name/Signature: Date/Time: [id number] Discharge summary Date of Service 06/11/2023 Discharge [...] (E11.22 - ICD-10-CM) Atherosclerotic heart disease of [place] coronary artery without angina pectoris (I25.10 - [...] Draw (one day only), Blood, Once,Preferred Lab: [facility], Stop date 06/11/23 5:00:00 EDT(Complete) Other status: CBC,06/11/23 5:00:00 EDT, Next AM Draw (one day only), Blood, Once, Preferred Lab: [facility], Stop date 06/11/23 5:00:00 EDT(Complete) Other status: Chest XR 1 View (Portable),06/11/23 8:11:00 EDT, 06/11/23 8:11:00 EDT, Routine, evaluate for pulmonary edema, Full code, Portable: Yes, MTT with Monitor, Isolation: None, IV: Yes, Oxygen: Yes, Diabetes: Yes, : N/A, Wt k.3, [facility], ME6S(Complete) Other status: OT Consult,06/10/23 9:02:00 [...] steroids. Patient was reexamined on 06/08 by sales counselor MICU team was less concern for COPD [...] You were transfused blood seen by a real estate administrator and started on IV diuretics (water pills). Please follow-up with your primary care doctor, we will have you follow-up with a real estate administrator for your aortic stenosis (narrow heart valve). Please follow-up with your established belly packer. If you do not have an established belly packer I will provide you with information for a belly packer. Again please contact your primary care doctor [...] MD When In 2 weeks Where: [address] [facility] [place] [address]- Follow Up with ROJAS AVILA MD When In 2 weeks Where: [address] [facility] [address] [facility] [place] [phone] Follow Up with TALYA NICHOLS DO When Within 1-2 days Where: [address] [facility] [place] [phone] Follow Up Appointments No qualifying data available. [...] CHERI BROWNE MD on 06/11/2023 12:28 PM [id number] Gastroenterology Progress note Date of Service 06/11/2023 [...] extensive workup with his established GIphysician in [place]. He is currently hemodynamically stable and free [...] by MADELAINE MEI on 06/11/2023 11:27 AM [facility] [id number] Note ORIGINAL EXAMINATION: ONE XRAY VIEW OF [...] Sign Date: 06/11/2023 9:08:01 AM Ordering Provider: [facility]03-31-2024 Note Date of Service 06/10/2023 Chief Complaint [...] steroids. Patient was reexamined on 06/08 by sales counselor MICU team was less concern for COPD [...] CHERI BROWNE MD on 06/10/2023 03:10 PM [facility] HealthcareIgzsbpwb28-63-2900 Cardiology Consult note Date of Service 06/09/2023 [...] CAROL BARAHONA MD on 06/09/2023 01:03 PM [facility] [id number] Progress note SUBJECTIVE: Mr. Bright states his [...] with questions. 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 He was seen at [facility] for this. Also states that he [...] Transfusion floor and no further follow-up by [facility] service Problem List/Past Medical History Ongoing [...] AHMET CLARK MD on 06/09/2023 01:35 PM [facility] [id number] Cardiology Consult note Date of Service 06/09/2023 [...] CAROL BARAHONA MD on 06/09/2023 01:03 PM [id number] Gastroenterology Consult note Reason for Consultation Anemia [...] of his care has been up at [facility] or at [facility]. He follows with a belly packer at [place], Dr. Joy. The patient states that despite his anemia, he has not noted any gross GI bleeding. It appears he had multiple upper endoscopies performed with his primary belly packer over the course of the past few [...] Despite his extensive workup with his primary belly packer he does not recall having a recentcolonoscopy. [...] He has been following closely with a belly packer locally. He believes that the results of [...] As detailed above, followed locally with his belly packer. PPI therapy twice daily, continue to monitor [...] NAMRATA ESPINO MD on 06/09/2023 01:02 PM [facility] HealthcareOldqktor86-49-4092 Note* Exam Date Time Procedure Performing Provider Status 06/09/23 10:04 AM Echocardiogram, Adult - CV Auth (Verified) [facility] 03-30-2024 History and physical note Date of [...] department for furtherevaluation. He was seen at [facility] for this. Also states that he [...] AM Digitally Signed by AHMET CLARK MD [facility] [id number] Note ORIGINAL EXAMINATION: ONE XRAY VIEW OF [...] Date: 06/09/2023 12:03:08 AM Ordering Provider: CINDY LEWISUk HealthcareTxwinvtc69-16-1655 Note ORIGINAL EXAMINATION: ONE XRAY VIEW OF [...] Date: 06/08/2023 2:31:11 PM [facility]ing [facility] NoteSinus rhythm Prolonged CA interval Abnormal R-wave progression, early transition LVH with secondary repolarization abnormality Electronic Signature: KIRSTY GROSS MD 06/08/2023 15:54:28[facility] 03-15-2024 Hospital Discharge instructions Patient Education [...] your ankles gets worse Dizziness or weakness [phone] [employer]. [address] [place] [address], [place] [address]. All rights reserved. This information is not intended as a substitute for professional medical care. Always follow yourhealthcare professional's instructions. Follow Up Care 05/25/2023 14:51:34 With:TALYA NICHOLS DO Address: [address] [place] [address] [place] [phone] When:2-4 days [facility] 03-15-2024 Note Discharge Instructions Thank you [...] DO When Within 2-4 days Where: [address] [place] [address]- [phone] Allergies Valturna (Numbness of hand, Numbness of [...] your ankles gets worse Dizziness or weakness [phone] [employer]. [address] [place] [address]. All rights reserved. This information is not intended as a substitute for professional medical care. Always follow yourhealthcare professional's instructions. Additional Information VACCINATE! IT SAVES LIVES! Members of the community who have not yet received the COVID-19 vaccine and would like to receive it can visit one of [facility] vaccine clinics. There are many vaccine clinic locations within the [facility]. For locations and available times, please visit www.gettheshot.coronavirus.[place].gov/. It is important to note that some COVID mobile vaccine clinics are held outdoors and may be canceled in rainy or stormy conditions. To learn more about pediatric vaccinations (ages 5-11), we invite you to visit the [facility] webpage. https://www.[facility].org/pages/3795-Mfhzs-Klhzshdyqje-Njgsfiqemh-Znqig-Pgr stions.htmlTo learn more about the COVID-19 vaccine, we invite you to visit the CDC website for a list of frequently asked questions. https://www.cdc.gov/coronavirus/2019-ncov/vaccines/faq.html [facility] Patient Portal Access Instructions: Stay connected with your healthcare team and access your personal medical information anytime with the [facility] Patient Portal. If you would like a full copy of your medical records please contact the [facility] Medical Records Department Sunday through Sunday between 8a.m. and 4:30p.m. Please follow the directions below to access the portal: 1.Access the email account you provided upon registration to the [facility].2.Look for an invitation email from [facility].3.Open the email and access the invitation link: Accept Invitation to [facility]4.Fill in the required hollis to create your account. Sign into [email or web address] with your username and password that you [...] you will allow to register on the [facility] Patient Portal for access to your information. You can also access the [facility] Patient Portal on the [employer] erika. Simply click on Health Records under HealthData and then click on the emaze logo. HOW TO SAFELY DISPOSE OF PRESCRIPTION [...] Call your local pharmacy or go to http://bit.ly/8G1Dq1p to find one close to you.3.Make use of household items: Use cat litter or old coffee grounds to dispose medications if other options arenot available. Mix your drugs with these household products, seal them in an airtight container andthrow it into the garbage. Call [facility]: [phone] to be sure your drugs can be [...] aware that I should contact my doctor. Patient/Registered Nurse Cardiovascular Icu Signature: Date/Time: Relationship to Patient: Witness Name/Signature: Date/Time: [facility]03-15-2024 Note ORIGINAL EXAMINATION: ONE XRAY VIEW [...] Date: 05/25/2023 3:46:57 PM Ordering Provider: [facility] NoteSinus rhythm Prolonged CA interval LVH with secondary repolarization abnormality Anterior Q waves, possibly due to LVH Electronic Signature: ANNY DA SILVA MD 05/25/2023 15:32:43[facility] 02-27-2024 Hospital Discharge instructions Patient Education [...] Follow these instructions at home: Medicines Take rvfa-esw-vzbryrp and prescription medicines only as told by your health care provider. Do not stop taking your medicines or change the amount you take. If you are having problems or sideeffects from your medicines, talk to your health care provider. If you are having difficulty paying for your medicines, contact a social problems specialist or your clinic. There are many programs [...] 07/10/2017 Document Revised: 02/08/2018 Document Reviewed: 07/10/2017 [employer] Patient Education 2020 [employer]. 05/08/2023 14:54:37 Chronic Obstructive Pulmonary Disease Exacerbation [...] Follow these instructions at home: Medicines Take wldn-mrf-ljmnzeb and prescription medicines only as told by [...] and water are not available, use hand project landscape architect. During flu season, avoid enclosed spaces that [...] 12/24/2007 Document Revised: 02/08/2018 Document Reviewed: 04/02/2017 [employer] Patient Education 2020 [employer]. Follow Up Care 05/07/2023 09:41:27 With:TALYA NICHOLS DO Address: [address] [place] [address]- [phone] When:05/11/2023 12:30:00 Comments:This appointment can serve as your post-hospital follow-up appointment. [facility] 02-27-2024 Note Discharge Instructions Thank you for allowing [facility] to assist you with your healthcare needs. [...] 05/11/2023 12:30 PM EST TALYA NICHOLS DO [address] [phone] Follow Up Appointments Follow Up with TALYA NICHOLS DO When 05/11/2023 12:30 PM EST Why: This appointment can serve as your post-hospital follow-up appointment. Where: [address] [place] [phone] The Following Activity and Diet Have Been [...] Every day Duration: 6 Days Pickup at [facility] New torsemide (torsemide 5 mg oral tablet) 1 tab(s) by mouth Every day Pickup at [facility] #74308 Changed empagliflozin (Jardiance 10 mg oral tablet) [...] making patient cough. Pharmacy Information [id number]: [address] [place], [place] [id number] [phone] What How Much When Comments Stop Taking [...] may report side effects to FDA at 2-539-EDW-8367. What other drugs will affect prednisone? Sometimes [...] may affect prednisone. This includes prescription and lfoc-msv-rhniilc medicines, vitamins, and herbal products. Not all [...] to ensure that the information provided by [employer]. ('[employer]') is accurate, up-to-date, and complete, but no guarantee is made to that effect. Drug information contained herein may be time sensitive. [employer] information has been compiled for use by healthcare practitioners and consumers in the [place] and therefore [employer] does not warrant that uses outside of the [place] are appropriate, unless specifically indicated otherwise. [employer] drug information does not endorse drugs, diagnose patients or recommend therapy. [employer] drug information isan informational resource designed to [...] effective or appropriate for any given patient. [employer] does not assume any responsibility for any aspect of healthcare administered with the aid of information [employer] provides. The information contained herein is not intended to cover all possible uses, directions, precautions, warnings, drug interactions, allergic reactions, or adverse effects. If you have questions about the drugs you are taking, check with your doctor, nurse or pharmacist. Copyright 3588-3392 [employer]. Version: 10.. Revision Date: 06/06/2018. torsemide (oral/injection) [...] may report side effects to FDA at 5-186-URQ-1462. What other drugs will affect torsemide? Tell [...] drugs may affect torsemide. This includes prescription vxwoceg-ofz-tiqdsgk medicines, vitamins, and herbal products. Not all [...] to ensure that the information provided by [employer]. ('[employer]') is accurate, up-to-date, and complete, but no guarantee is made to that effect. Drug information contained herein may be time sensitive. [employer] information has been compiled for use by healthcare practitioners and consumers in the [place] and therefore [employer] does not warrant that uses outside of the [place] are appropriate, unless specifically indicated otherwise. [employer] drug information does not endorse drugs, diagnose patients or recommend therapy. [employer] drug information isan informational resource designed [...] effective or appropriate for any given patient. [facility] does not assume any responsibility for any aspect of healthcare administered with the aid of information [facility] provides. The information contained herein is not intended to cover all possible uses, directions, precautions, warnings, drug interactions, allergic reactions, or adverse effects. If you have questions about the drugs you are taking, check with your doctor, nurse or pharmacist. Copyright 6157-3033 [employer]. Version: 14.. Revision Date: 10/13/2022. Education Materials [...] Follow these instructions at home: Medicines Take qhiw-xlc-nbicgfx and prescription medicines only as told by your health care provider. Do not stop taking your medicines or change the amount you take. If you are having problems or sideeffects from your medicines, talk to your health care provider. If you are having difficulty paying for your medicines, contact a social problems specialist or your clinic. There are many programs [...] 07/10/2017 Document Revised: 02/08/2018 Document Reviewed: 07/10/2017 [employer] Patient Education 2020 [employer] Chronic Obstructive Pulmonary Disease Exacerbation Chronic [...] Follow these instructions at home: Medicines Take bykq-uge-jvlkdgs and prescription medicines only as told by [...] and water are not available, use hand project landscape architect. During flu season, avoid enclosed spaces that [...] 12/24/2007 Document Revised: 02/08/2018 Document Reviewed: 04/02/2017 [employer] Patient Education 2020 [employer]. Additional Information VACCINATE! IT SAVES LIVES! Members of the community who have not yet received the COVID-19 vaccine and would like to receive it can visit one of [facility] vaccine clinics. There are many vaccine clinic locations within the [facility]. For locations and available times, please visit https://gettheshot.coronavirus.[place].gov/. It is important to note that some COVID mobile vaccine clinics are held outdoors and may be canceled in rainy or stormy conditions. To learn more about pediatric vaccinations (ages 5-11), we invite you to visit the [facility] webpage. https://www.[facility].org/pages/7451-Vnqpc-Cdqtemwmiic-Mvdqsdrion-Tndmn-Gao stions.htmlTo learn more about the COVID-19 vaccine, we invite you to visit the CDC website for a list of frequently asked questions.https://www.cdc.gov/coronavirus/2019-ncov/vaccines/faq.html [facility] Patient Portal Access Instructions: Stay connected with your healthcare team and access your personal medical information anytime with the [facility] Patient Portal. Please follow the directions below to create your [facility] account: 1.Access the email account you provided upon registration to the hospital/physician office.2.Look for an invitation email from [facility].3.Open the email and access the invitation link: AcceptInvitation to [facility].4.Fill in the required hollis to create your account. To access your account, visit [employer]. Click the blue button labeled Access Patient Portal and then log in with the username and password that you created in the steps above (more content not included)... [facility]02-26-2024 Note Date of Service 05/07/2023 Chief Complaint has been having dispnea for a couple weks been at [facility] twice for it History of Present Illness Patient is an 82-year-old male, who follows with Dr. Talya Nichols with a past medical history significant for type 2 diabetes, congestive heart failure, COPD, chronic kidney disease and hypothyroidism, presented to [facility] emergency department with the chief complaint of [...] shortness of breath. Patient was over at [facility] today for a post-hospitalization visit. He [...] interpretation. EKG EC05/07/23: Sinus rhythm Borderline prolonged CA interval Posterior infarct, old Nonspecific T abnormalities, [...] by DELIA JEFFERSON on 05/07/2023 09:04 PM [facility]02-26-2024 Evaluation + Plan noteExtracted from: Title:History [...] Date:05/11/2023 12:30:00 PM Scheduled Provider:TALYA NICHOLS DO Location:[facility] Appointment Type:[facility] Hospital Follow-Up Future Scheduled Tests Laboratory* Basic [...] Metabolic Panel 04/13/23 * N-Terminal proBNP 04/13/23 [facility] 02-26-2024 Note ORIGINAL EXAMINATION: ONE XRAY [...] Date: 05/07/2023 10:53:51 AM [facility]ing [facility] Note Sinus rhythm Borderline prolonged CA interval Posterior infarct, old Nonspecific T abnormalities, lateral leads Electronic Signature: KIRSTY GROSS MD 05/07/2023 11:42:23[facility] 02-20-2024 Discharge summary Author Frederick Logan [facility] May 01, 2023 2:55am Note Date/Time May 01, 2023 12:51am [facility] Medical Records Department [address] [place] [address] Emergency Department Summary 04/30/23 MR#: [id number] Acct: [id number] Name: BEULAH BRIGHT Rep #:[id number] : 1940 82 From: Frederick Logan [...] pain nausea or vomiting associated with this [facility] Medical History Acute and chronic respiratory failure with hypoxia Aortic valve stenosis, acquired Atherosclerotic heart disease of [place] coronary artery without angina pectoris CAD (coronary [...] (1,000 unit) capsule 25 mcg PO DAILY rcyxwdy29/21/22 [History Last Taken 02/15/23] ipratropium 0.5 mg-albuterol [...] SOB 05/02/21 [History Last Taken 02/15/23] vitamins A,C,H-upip-hzepae 4,296 mcg-226 mg-90 mg capsule (PreserVision AREDS) [...] % (Auto) 60.3 Lymph % (Auto) 24.1 Beckham % (Auto) 9.3 Eos % (Auto) 5.6 [...] 2 cap PO BID PreserVision AREDS 14,320-226-200 kwpp-ip-uqkb Capsule 1 cap PO BID lisinopril [Zestril] [...] your Primary Care Provider. Call [facility] ([phone]) or report to the closest Emergency Room. Call 911 if necessary. 05/01/23 0255 <Electronically signed by Frederick Loagn DO> Cosigner Signature (if applicable): CC: Dr. Talya Nichols, ~ Signed [facility] Work Phone: 1(786) 360-983502-15-2024 Progress note Author Trell Kendrick [facility] April 26, 2023 8:01am Note Date/Time April 26, 2023 7:46am [facility] Medical Records Department [address] [facility] [place] [address] Progress Note - Cardiology 04/26/23739 MR#: [id number] Acct: [id number] Name: BEULAH BRIGHT Rep #:[id number] : 1940 82 From: Trell Kendrick MD PCP: Dr. Talya Nichols, Status:ADM IN Location: [place] [address] Subjective Subjective The patient was examined with [...] (Auto) 68.9, Lymph % (Auto) 17.5 L, Beckham % (Auto) 8.3, Eos % (Auto) 4.4, [...] (Auto) 68.9, Lymph % (Auto) 17.5 L, Beckham % (Auto) 8.3, Eos % (Auto) 4.4, [...] This can be followed up by his real estate administrator in the [place] group. I went over again the importance [...] Dr. Joy thepatient should follow-up with his [place] real estate administrator to determine if iron replacement therapy would be of benefit to help with his heart failure. PLAN: Plan From a cardiovascular standpoint the patient can be discharged to home. The patient should continue with his home oxygen. The patient needs to get a basic metabolic panel done in 1 week and follow-up with his dehydrogenation converter operator. He should make certain he and includes his new medical regiment when he follows up with the dehydrogenation converter operator and his real estate administrator at [facility] [place]. Charges/Coding Visit Charges Inpatient E&M: 72504 Subs Hosp L3 04/26/23 0801 <Electronically signed by Trell Kendrick MD> Cosigner Signature (if applicable): CC: ~ Signed [facility] Work Phone: 1(250) 802-961202-14-2024 Progress note Author John Anders [facility] April 25, 2023 1:58pm Note Date/Time April 25, 2023 1:51pm [facility] Medical Records Department [address] [place] [address] Progress Note - Hospitalist 04/25/23 1348 MR#: [id number] Acct: [id number] Name: BEULAH BRIGHT Rep #:[id number] : 1940 82 From: John foster MD PCP: Dr. Talya Nichols, DO Status:ADM IN Location: [place] [address] Subjective Subjective Breathing little bit better, discussed [...] 76.7 H, Lymph % (Auto) 12.0 L, Beckham % (Auto) 6.1, Eos % (Auto) 4.5, [...] (Auto) 68.9, Lymph % (Auto) 17.5 L, Beckham % (Auto) 8.3, Eos % (Auto) 4.4, [...] DVT: Heparin Charges/Coding Visit Charges Inpatient E&M: 34070 Subs Hosp L2 04/25/23 3827 <Electronically signed by John Anders MD> Cosigner Signature (if applicable): CC: ~ Signed [facility] Work Phone: 1(549) 409-465702-14-2024 Consult note Author Trell Kendrick [facility] April 25, 2023 9:09am Note Date/Time April 25, 2023 9:03am [facility] Medical Records Department [address] [place] [address] Consultation - Cardiology 04/25/23 0841 MR#: [id number] Acct: [id number] Name: BEULAH BRIGHT Rep #:[id number] : 1940 82 From: Trell Kendrick MD PCP: Dr. Talya Nichols, DO Status:ADM IN Location: [place] [address] Assessment & Plan Assessment/Plan (1) Acute on [...] has changed his cardiovascular care from the [place] [facility] to [place] where he sees a real estate administrator from [place]. The patient also carries a history of [...] for some type of procedure at in [place] in the near future. (4) Anemia: QUALIFIERS: [...] 25. This is being followed by the [place] cardiology group according tothe patient's report. (7) Atherosclerotic heart disease of [place] coronary artery without angina pectoris: QUALIFIERS: [place] vs. transplanted heart: [place] heart QualifiedCode(s): I25.10 - Atherosclerotic heart disease of [place] coronary artery without angina pectoris PLAN: The [...] is managed by the primary service and [place] real estate administrator he is on intensive statin therapy which should be continued as tolerated. (9) Carotid artery stenosis: QUALIFIERS: Laterality: bilateral Qualified Code(s): I65.23 - Occlusion and stenosis of bilateral carotid arteries PLAN: Carotid ultrasound revealed bilateral greater than 70% stenoses in February 2023. The patient is not a candidate for antiplatelet therapy at this point in time the patient should be followed by the [place] [facility] forlong-term management. He denies any [...] need to be followed up by the [place] [facility]. 5. The patient is to [...] needed the patient will follow-up with his [place] real estate administrator after discharge at his request. HPI Consult Data Date of Consult: 04/25/23 HPI Narrative Reason for Consultation: SOB presumed CHF exacerbation HPI Narrative: BEULAH BRIGHT, is a 82 M who presents with what sounds to be acute decompensation of his heart failure with preserved ejection fraction. He was atthe dehydrogenation converter operator office yesterday and walking out developed profound [...] June 2022 was being evaluated in the [place] [facility] office. He was on beta-greta [...] a heart rate between 90 and 105. [facility] Medical History Acute and chronic respiratory failure with hypoxia Aortic valve stenosis, acquired Atherosclerotic heart disease of [place] coronary artery without angina pectoris CAD (coronary [...] (1,000 unit) capsule 25 mcg PO DAILY vpycxid00/21/22 [History Last Taken 02/15/23] ipratropium 0.5 mg-albuterol [...] SOB 05/02/21 [History Last Taken 02/15/23] vitamins A,C,D-fwvp-ocqfvb 4,296 mcg-226 mg-90 mg capsule (PreserVision AREDS) [...] 13% Risk Charges/Coding Visit Charges Inpatient E&M: 27117 Init Hosp L3 Objective Data Vital Signs: [...] 76.7 H, Lymph % (Auto) 12.0 L, Beckham % (Auto) 6.1, Eos % (Auto) 4.5, [...] (Auto) 68.9, Lymph % (Auto) 17.5 L, Beckham % (Auto) 8.3, Eos % (Auto) 4.4, [...] 76.7 H, Lymph % (Auto) 12.0 L, Beckham % (Auto) 6.1, Eos % (Auto) 4.5, [...] (Auto) 68.9, Lymph % (Auto) 17.5 L, Beckham % (Auto) 8.3, Eos % (Auto) 4.4, [...] 17:33 EST Reading Location ID and State: [facility] Tel , Service support , EKG Initial [...] Nichols DO; Dr. Trell Kendrick MD~ Signed [facility] Work Phone: 1(961) 281-781702-13-2024 History and physical note Author Michelle Washburn [facility] April 24, 2023 8:07pm Note Date/Time April 24, 2023 8:07pm [facility] Medical Records Department [address] [place] [address] H&P Exam - Hospitalist 04/24/231948 MR#: [id number] Acct: [id number] Name: BEULAH BRIGHT Rep #:[id number] 6 : 1940 82 From: Michelle Washburn DO PCP: Dr. Talya Nichols DO Status:ADM IN Location: [place] [id number]- [id number] HPI - General General Date of Admission: 04/24/23 Date of Service: 04/24/23 Chief Complaint: Shortness of breath HPI Narrative BEULAH BRIGHT, is a 82 M who presented to the emergency department at [facility] on 04/24/2023 complaining of shortness of [...] shows first-degree heart block with a prolonged CA interval, normal QT interval with mild tachycardia and no ST-T wave changes concerning foracute ischemia. He was given IV Lasix 40 mg x 1 dose in the emergency department and request foradmission was made. As noted the patient is concerned that his Lasix is not working so I will transition to Bumex and give another 2 mg at the time of admission. [facility] Medical History Acute and chronic respiratory failure with hypoxia Aortic valve stenosis, acquired Atherosclerotic heart disease of [place] coronary artery without angina pectoris CAD (coronary [...] (1,000 unit) capsule 25 mcg PO DAILY zwkmxsa78/21/22 [History Last Taken 02/15/23] ipratropium 0.5 mg-albuterol [...] SOB 05/02/21 [History Last Taken 02/15/23] vitamins A,C,O-ouni-gtzshs 4,296 mcg-226 mg-90 mg capsule (PreserVision AREDS) [...] 76.7 H, Lymph % (Auto) 12.0 L, Beckham % (Auto) 6.1, Eos % (Auto) 4.5, [...] with patient Charges/Coding Visit Charges Inpatient E&M: 07276 Init Hosp L2 04/24/232006 <Electronically signed by Michelle Washburn DO> Cosigner Signature (if applicable): CC: Dr. Michelle Washburn DO; Dr. Talya Nichols DO~ Signed [facility] Work Phone: 1([phone]) 807-172202-13-2024 Discharge summary Author Jr William [facility] April 24, 2023 8:00pm Note Date/Time April 24, 2023 4:47pm [facility] Medical Records Department [address] [place] [address] Emergency Department Summary 04/24/23 MR#: [id number] Acct: [id number] Name: BEULAH BRIGHT Rep #:[id number] 6 : 1940 82 From: Jr Thomas DO PCP: Dr. Talya Nichols DO Status:ADM IN Location: [address] History of Present Illness Chief Complaint: Shortness of Breath Narrative Narrative: 82-year-old male with history of GI bleed, CHF, COPD, aortic stenosis, hyperlipidemia, CKD presenting with dyspnea. Patient states it started prior toarrival. Patient states he went to see his dehydrogenation converter operator today although we cannot remember the dehydrogenation converter operator name. He states that somebody at [facility] who comes out to [place]. He states he want to have him do blood work in about 3 weeks and go to the [facility] to have something taken care of of [...] or bloody stools that he knows of. [facility] Medical History Acute and chronic respiratory failure with hypoxia Aortic valve stenosis, acquired Atherosclerotic heart disease of [place] coronary artery without angina pectoris CAD (coronary [...] (1,000 unit) capsule 25 mcg PO DAILY fluytsu83/21/22 [History Last Taken 02/15/23] ipratropium 0.5 mg-albuterol [...] SOB 05/02/21 [History Last Taken 02/15/23] vitamins A,C,U-dgqf-nsibil 4,296 mcg-226 mg-90 mg capsule (PreserVision AREDS) [...] Std Deviation 48.0 H RDW Coeff of Jhon 14.7 H Plt Count 103 L MPV 11.9 Immature Gran % (Auto) 0.200 Neut % (Auto) 76.7 H Lymph % (Auto) 12.0 L Beckham % (Auto) 6.1 Eos % (Auto) 4.5 [...] 17:33 EST Reading Location ID and State: [address] [place] [address] Tel , Service support , Discharge Plan Disposition Disposition: Acute Care Hospital [facility] Discharge Date/Time: 04/24/23 19:57 What to do if you have Problems For any increased pain, shortness of breath, bleeding, nausea or vomiting, chestpain, or any unexpected problems, contact your Primary Care Provider. Call [facility] ([phone]) or report to the closest Emergency Room. Call 911 if necessary. 04/24/231999 <Electronically signed by Jr Thomas DO> Cosigner Signature (if applicable): CC: Dr. Talya Nichols DO ~ Signed [facility] Work Phone: 1([phone]) 719-960901-27-2024 Discharge summary Author Dimitry Lott [facility] April 07, 2023 3:47pm Note Date/Time April 07, 2023 1 :56pm [facility] Medical Records Department [address] [place] [address] Emergency Department Summary 04/07/23 MR#: [id number] Acct: [id number] Name: BEULAH BRIGHT Rep #:[id number] 0 : 1940 82 From: Dimitry Lott [...] valve stenosis, acquired Atherosclerotic heart disease of [place] coronary artery without angina pectoris CAD (coronary [...] (1,000 unit) capsule 25 mcg PO DAILY rmirepe75/21/22 [History Last Taken 02/15/23] ipratropium 0.5 mg-albuterol [...] SOB 05/02/21 [History Last Taken 02/15/23] vitamins A,C,N-kuno-fudett 4,296 mcg-226 mg-90 mg capsule (PreserVision AREDS) [...] % (Auto) 63.9 Lymph % (Auto) 22.1 Beckham % (Auto) 7.4 Eos % (Auto) 5.8 [...] 2 cap PO BID PreserVision AREDS 14,320-226-200 qtky-aa-zygi Capsule 1 cap PO BID lisinopril [Zestril] [...] your Primary Care Provider. Call [facility] ([phone]) or report to the closest Emergency Room. Call 911 if necessary. 04/07/23 5935 <Electronically signed by Dimitry Lott MD> Cosigner Signature (if applicable): CC: Dr. Talya Nichols DO ~ Signed [facility] Work Phone: [phone] 449-446401-22-2024 Procedure [facility] 04-02-2023 Procedure [facility]12-29-2023 Consult note Author Radha Patricio [facility] March 09, 2023 2:22pm Note Date/Time March 09, 2023 2:22pm [facility] Medical Records Department [address] [place] [address] Counseling Note - Pharmacy 03/09/23 1422 MR#: [id number] Acct: [id number] Name: BEULAH BRIGHT Rep #:[id number] 3 : 1940 82 From: Radha Patricio PCP: Dr. Talya Nichols DO Status:ADM IN Y Location: [place] [address] Pharmacy [place] Med Reconciliation Pharmacy Service has performed discharge [...] 18 mcg inhalation DAILY SOB 05/02/21 vitamins A,C,P-zjbr-gygpzd 4,296 mcg-226 mg-90 mg capsule (PreserVision AREDS) [...] Signature (if applicable): Date CC: ~ Signed [facility] Work Phone: [phone]) 557-398812-29-2023 Discharge summary Author Fred Ramos [facility] March 09, 2023 12:25pm Note Date/Time March 09, 2023 12:25pm [facility] Medical Records [place] [address] Discharge Summary 03/09/23 1221 MR#: [id number] Acct: [id number] Name: BEULAH BRIGHT Rep #:[id number] 4 : 1940 82 From: Fred Galvan PCP: Dr. Talya Nichols, DO Status:ADM IN Location: [place] [address] Providers Date of Admission: 03/07/23 Date of Discharge: 03/09/23 Primary Care Physician: Dr. Talya Nichols, DO Consultations 03/07/23 22:12 Consult: Gastroenterology Routine Consulting Provider: [facility] Reason for Consult: Recurrent upper GI [...] is an 82-year-old male who presented to [facility] ED on03/07/2023 with worsening shortness of [...] (1,000 unit) capsule 25 mcg PO DAILY cgehjkk11/21/22 ipratropium 0.5 mg-albuterol 3 mg (2.5 mg base)/3 mL nebulization soln 3 ml inhalation 4X/DAY PRN sob 05/02/21 liothyronine 25 mcg tablet 25 mcg PO DAILY THYROID 05/02/21 omega-3 fatty acids-vitamin E 1,000 mg capsule 2 cap PO BID SUPPLEMENT 05/02/21 tiotropium bromide 18 mcg capsule with inhalation device (Spiriva with HandiHaler) 18 mcg inhalation DAILY SOB 05/02/21 vitamins A,C,W-axbc-wundqu 4,296 mcg-226 mg-90 mg capsule (PreserVision AREDS) [...] % (Auto) 57.7, Lymph % (Auto) 25.7, Beckham % (Auto) 9.8, Eos % (Auto) 5.8 [...] 2 cap PO BID PreserVision AREDS 14,320-226-200 pymv-jp-kflv Capsule 1 cap PO BID lisinopril [Zestril] [...] Self Care Charges/Coding Visit Charges Inpatient E&M: 46157 Disch Hosp >30min 03/09/23 1225 <Electronically signed by Fred Ramos MD> Cosigner Signature (if applicable): CC: Dr. Talya Nichols DO; Dr. Fred Ramos MD~ Signed [facility] Work Phone: [phone]) 767-555112-29-2023 Discharge summary Author Fred Ramos [facility] March 09, 2023 12:21pm Note Date/Time March 09, 2023 12:16pm [facility] Medical Records Department [address] [place] [address] Instructions for Home/Discharge Instructions 03/09/23 0915 MR#: [id number] Acct: [id number] Name: BEULAH BRIGHT Rep #:[id number] 7 : 1940 82 From: Fred Galvan [...] 2 cap PO BID PreserVision AREDS 14,320-226-200 guum-xv-qayu Capsule 1 cap PO BID lisinopril [Zestril] [...] DO; Dr. Talya Nichols DO ~ Signed [facility] Work Phone: 1([phone] 858-672512-28-2023 Consult note Author Fredy Friend [facility] March 08, 2023 4:49pm Note Date/Time March 08, 2023 4:46pm [facility] Medical Records Department [facility] [place] [address] Consultation - GI 03/07/23 2350 MR#: [id number] Acct: [id number] Name: BEULAH BRIGHT Rep #:[id number] 2 : 1940 82 From: Fredy Friend DO PCP: Dr. Talya Nichols, DO Status:ADM IN Location: [place] [id number]- 1 HPI Consult Data Date of Consult: [...] in the ED were temp of 98.1F, CA of 99, BP of 132/64, RR of [...] in the stomach that were endoscopically treated. [facility] Medical History Acute and chronic respiratory failure with hypoxia Aortic valve stenosis, acquired Atherosclerotic heart disease of [place] coronary artery without angina pectoris CAD (coronary [...] (1,000 unit) capsule 25 mcg PO DAILY ceqszjj51/21/22 [History Last Taken 02/15/23] ipratropium 0.5 mg-albuterol [...] SOB 05/02/21 [History Last Taken 02/15/23] vitamins A,C,D-ptoe-hsuvls 4,296 mcg-226 mg-90 mg capsule (PreserVision AREDS) [...] % (Auto) 63.7, Lymph % (Auto) 25.2, Beckham % (Auto) 8.2, Eos % (Auto) 2.5, [...] 19:54 EST Reading Location ID and State: [address] [place] [address] Tel , Service support , Assessment & [...] of 3. Charges/Coding Visit Charges Inpatient E&M: 76215 Init Hosp L3 03/08/23 7827 <Electronically signed by Fredy Joy DO> Cosigner Signature (if applicable): CC: Dr. Romario Blancas DO; Dr. Talya Nichols, DO~ Signed [facility] Work Phone: [phone] 104-454512-28-2023 Progress note Author Fred Ramos [facility] March 08, 2023 4:12pm Note Date/Time March 08, 2023 8:25am [facility] Medical Records Department [address] [place] [address] Progress Note - Hospitalist 03/08/23 0824 MR#: [id number] Acct: [id number] Name: BEULAH BRIGHT Rep #:[id number] 6 : 1940 82 From: Fred Galvan PCP: Dr. Talya Nichols DO Status:ADM IN Location: [place] [address] Reason for Visit Reason for Visit: Diagnoses [...] % (Auto) 63.7, Lymph % (Auto) 25.2, Beckham % (Auto) 8.2, Eos % (Auto) 2.5, [...] is an 82-year-old male who presented to [facility] ED on03/07/2023 with worsening shortness of [...] % (Auto) 63.7, Lymph % (Auto) 25.2, Beckham % (Auto) 8.2, Eos % (Auto) 2.5, [...] Comment SCANNED Charges/Coding Visit Charges Inpatient E&M: 20411 Subs Hosp L2 03/08/23 1612 <Electronically signed by Fred Ramos MD> Cosigner Signature (if applicable): CC: ~ Signed [facility] Work Phone: 1(761) 799-863012-28-2023 Procedure [facility] 03-08-2023 Procedure [facility]12-28-2023 History and physical note [facility] 08, 2023 2:17am Note Date/Time March 07, 2023 8:41pm [facility] Medical Records Department [address] [place] [address] H&P Exam - Hospitalist 03/07/232040 MR#: [id number] Acct: [id number] Name: BEULAH BRIGHT Rep #:[id number] 2 : 1940 82 From: Romario house DO PCP: Dr. Talya Nichols, DO Status:ADM IN Location: [place] [id number]- 1 HPI - General General Date of Admission: 03/07/23 Date of Service: 03/07/23 Chief Complaint: Worsening shortness of breath, dark stools HPI Narrative BEULAH BRIGHT, is a 82 M who presented to [facility] ED on 03/07/2023 with worsening shortness [...] at this time. No other acute concerns. [facility] Medical History Acute and chronic respiratory failure with hypoxia Aortic valve stenosis, acquired Atherosclerotic heart disease of [place] coronary artery without angina pectoris CAD (coronary [...] (1,000 unit) capsule 25 mcg PO DAILY wfynjxh15/21/22 [History Last Taken 02/15/23] ipratropium 0.5 mg-albuterol [...] SOB 05/02/21 [History Last Taken 02/15/23] vitamins A,C,Z-ujin-lbzpca 4,296 mcg-226 mg-90 mg capsule (PreserVision AREDS) [...] % (Auto) 63.7, Lymph % (Auto) 25.2, Beckham % (Auto) 8.2, Eos % (Auto) 2.5, [...] 19:54 EST Reading Location ID and State: [address] [place] [address] Tel , Service support , Assessment & Plan Assessment/Plan (1) Acute on chronic blood loss anemia: (2) Acute upper gastrointestinal bleeding: PLAN: Plan Patient is an 82-year-old male who presented to [facility] ED on03/07/2023 with worsening shortness of [...] 55 minutes. Charges/Coding Visit Charges Inpatient E&M: 64286 Init Hosp L2 03/08/23 0217 <Electronically signed by Romario Blancas DO> Cosigner Signature (if applicable): CC: Dr. Romario Blancas, ; Dr. Talya Nichols, ~ Signed [facility] Work Phone: [phone]) 938-717312-27-2023 Discharge summary Author Eric Lester [facility] March 07, 2023 8:49pm Note Date/Time March 07, 2023 6:50pm [facility] Medical Records Department [address] [place] [address] Emergency Department Summary 03/07/23 MR#: [id number] Acct: [id number] Name: BEULAH BRIGHT Rep #:[id number] 8 : 1940 82 From: Eric Lester [...] Overall he is a very poor historian. [facility] Medical History Acute and chronic respiratory failure with hypoxia Aortic valve stenosis, acquired Atherosclerotic heart disease of [place] coronary artery without angina pectoris CAD (coronary [...] (1,000 unit) capsule 25 mcg PO DAILY xedxnuh08/21/22 [History Last Taken 02/15/23] ipratropium 0.5 mg-albuterol [...] SOB 05/02/21 [History Last Taken 02/15/23] vitamins A,C,K-xibq-hwsitl 4,296 mcg-226 mg-90 mg capsule (PreserVision AREDS) [...] % (Auto) 63.7 Lymph % (Auto) 25.2 Beckham % (Auto) 8.2 Eos % (Auto) 2.5 [...] Management Discussion w/another healthcare provider: Hospitalist and Flavorer (GI friend) Critical Care Time Critical Care Time: Yes Critical care time (excluding procedures): 30-74 minutes (32 min), Including time spent:, Discussing w/Patient &/or Family/Machine Maintenance Supervisor, Discussing w/Consultants, Arranging Admission or Transfer and Performing Direct Patient Care at Bedside Discharge Plan Dx/Rx/DC Orders Clinical Impression: Acute on chronic blood loss anemia, COPD (chronic obstructive pulmonary disease), Acute upper gastrointestinal bleeding, Symptomatic anemia Disposition Disposition: Acute Care Hospital [facility] What to do if you have Problems For any increased pain, shortness of breath, bleeding, nausea or vomiting, chestpain, or any unexpected problems, contact your Primary Care Provider. Call [facility] ([phone]) or report to the closest Emergency Room. Call 911 if necessary. 03/07/232048 <Electronically signed by Eric Lester MD> Cosigner Signature (if applicable): CC: Dr. Talya Nichols, DO ~ Signed [facility] Work Phone: 1([phone]) 450-794012-27-2023 Discharge summary Author Eric Lester [facility] March 07, 2023 8:49pm Note Date/Time March 07, 2023 6:50pm [facility] Medical Records Department [address] [place] [address] Emergency Department Summary 03/07/23 MR#: [id number] Acct: [id number] Name: BEULAH BRIGHT Rep #:[id number] 8 : 1940 82 From: Eric Lester [...] Overall he is a very poor historian. [facility] Medical History Acute and chronic respiratory failure with hypoxia Aortic valve stenosis, acquired Atherosclerotic heart disease of [place] coronary artery without angina pectoris CAD (coronary [...] (1,000 unit) capsule 25 mcg PO DAILY nrhisqq64/21/22 [History Last Taken 02/15/23] ipratropium 0.5 mg-albuterol [...] SOB 05/02/21 [History Last Taken 02/15/23] vitamins A,C,Y-fnto-dncpid 4,296 mcg-226 mg-90 mg capsule (PreserVision AREDS) [...] % (Auto) 63.7 Lymph % (Auto) 25.2 Beckham % (Auto) 8.2 Eos % (Auto) 2.5 [...] Management Discussion w/another healthcare provider: Hospitalist and Flavorer (GI friend) Critical Care Time Critical Care Time: Yes Critical care time (excluding procedures): 30-74 minutes (32 min), Including time spent:, Discussing w/Patient &/or Family/Machine Maintenance Supervisor, Discussing w/Consultants, Arranging Admission or Transfer and Performing Direct Patient Care at Bedside Discharge Plan Dx/Rx/DC Orders Clinical Impression: Acute on chronic blood loss anemia, COPD (chronic obstructive pulmonary disease), Acute upper gastrointestinal bleeding, Symptomatic anemia Disposition Disposition: Acute Care Hospital [facility] What to do if you have Problems For any increased pain, shortness of breath, bleeding, nausea or vomiting, chestpain, or any unexpected problems, contact your Primary Care Provider. Call [facility] ([phone]) or report to the closest Emergency Room. Call 911 if necessary. 03/07/232048 <Electronically signed by Eric Lester MD> Cosigner Signature (if applicable): CC: Dr. Talya Nichols, DO ~ Signed [facility] Work Phone: 1([phone]) 632-110312-07-2023 Discharge summary Author Anthony Sosa [facility] February 15, 2023 3:36pm Note Date/Time February 15, 2023 3 :02pm [facility] Medical Records Department [address] [place] [address] Instructions for Home/Discharge Instructions 02/15/23 1500 MR#: [id number] Acct: [id number] Name: BEULAH BRIGHT Rep #:[id number] 4 : 1940 82 From: Anthony Sosa [...] 2 cap PO BID PreserVision AREDS 14,320-226-200 uipq-ju-kjxv Capsule 1 cap PO BID lisinopril [Zestril] [...] Landa, ; Dr. Talya Nichols, ~ Signed [facility] Work Phone: 1(791) 450-717512-06-2023 Progress note Author [facility] February 14, 2023 4:26pm Note Date/Time February 14, 2023 4 :19pm [facility] Medical Records Department [address] [place] [address] Progress Note - Hospitalist 02/14/23 1618 MR#: [id number] Acct: [id number] Name: BEULAH BRIGHT Rep #:[id number] 8 : 1940 82 From: Anthony Sosa [...] (Auto) 83.1 H, Lymph %(Auto) 5.0 L, Beckham % (Auto) 8.3, Eos % (Auto) 3.2, [...] Clarity Clear, Urine pH 5.0, Ur Specific [place] 1.015, Urine Protein 30 H, Urine Glucose [...] 92.3 H, Lymph % (Auto) 4.7 L, Beckham % (Auto) 1.3, Eos % (Auto) 1.3, [...] 35 minutes Charges/Coding Visit Charges Inpatient E&M: 18929 Subs Hosp L2 02/14/23 1626 <Electronically signed by Anthony Sosa DO> Cosigner Signature (if applicable): CC: ~ Signed [facility] Work Phone: 1(627) 735-964212-06-2023 History and physical note Author Erika Amin [facility] February 14, 2023 5:51am Note Date/Time February 13, 2023 1 0:54pm [facility] Medical Records Department [address] [place] [address] H&P Exam - Hospitalist 02/13/23 2248 MR#: [id number] Acct: [id number] Name: BEULAH BRIGHT Rep #:[id number] 8 : 1940 82 From: Erika Talbert [...] gastric ulcers and osteoarthritis who presents to [facility] ER complaining of severe shortness of [...] expected to be greater than 48 hours. [facility] Medical History (Updated 02/14/23 @ 00:[address] Erika Landa, DO) Aortic valve stenosis, acquired Atherosclerotic heart disease of [place] coronary artery without angina pectoris CAD (coronary [...] (1,000 unit) capsule 25 mcg PO DAILY dftejkh53/21/22 [History Last Taken 05/24/22] ipratropium 0.5 mg-albuterol [...] SOB 05/02/21 [History Last Taken 05/24/22] vitamins A,C,O-wkpn-kmvily 4,296 mcg-226 mg-90 mg capsule (PreserVision AREDS) [...] (Auto) 83.1 H, Lymph %(Auto) 5.0 L, Beckham % (Auto) 8.3, Eos % (Auto) 3.2, [...] Clarity Clear, Urine pH 5.0, Ur Specific [place] 1.015, Urine Protein 30 H, Urine Glucose [...] Reading Location ID and State: [address] / [employer] Tel , Service support , Assessment & [...] 75 minutes. Charges/Coding Visit Charges Inpatient E&M: 25767 Init Hosp L3 02/14/23 0551 <Electronically signed by Erika Landa DO> Cosigner Signature (if applicable): CC: Dr. Erika Landa DO; Dr. Talya Nichols DO~ Signed [facility] Work Phone: 1([phone]) 893-246012-06-2023 Discharge summary Author Jr Thomas [facility] February 13, 2023 11:05pm Note Date/Time February 13, 2023 8 :50pm [facility] Medical Records Department [address] [place] [address] Emergency Department Summary 02/13/23 MR#: [id number] Acct: [id number] Name: BEULAH BRIGHT Rep #:[id number] 7 : 1940 82 From: Jr Thomas [...] at this time. Denies chest pain currently. [facility] Medical History Aortic valve stenosis, acquired Atherosclerotic heart disease of [place] coronary artery without angina pectoris CAD (coronary [...] (1,000 unit) capsule 25 mcg PO DAILY ohpdhra59/21/22 [History Last Taken 05/24/22] ipratropium 0.5 mg-albuterol [...] SOB 05/02/21 [History Last Taken 05/24/22] vitamins A,C,W-bkcq-vpvmgy 4,296 mcg-226 mg-90 mg capsule (PreserVision AREDS) [...] 83.1 H Lymph % (Auto) 5.0 L Beckham % (Auto) 8.3 Eos % (Auto) 3.2 [...] Clarity Clear Urine pH 5.0 Ur Specific [place] 1.015 Urine Protein 30 H Urine Glucose [...] 2 cap PO BID PreserVision AREDS 14,320-226-200 cgrn-xu-kmij Capsule 1 cap PO BID lisinopril [Zestril] [...] your Primary Care Provider. Call [facility] ([phone]) or report to the closest Emergency Room. Call 911 if necessary. 02/13/23 2305 <Electronically signed by Jr Thomas DO> Cosigner Signature (if applicable): CC: Dr. Talya Nichols DO ~ Signed [facility] Work Phone: 1(251) 477-107712-05-2023 Discharge summary Author Jr Thomas [facility] February 13, 2023 11:05pm Note Date/Time February 13, 2023 8 :50pm [facility] Medical Records Department [address] [place] [address] Emergency Department Summary 02/13/23 MR#: [id number] Acct: [id number] Name: BEULAH BRIGHT Rep #:[id number] 7 : 1940 82 From: Jr Thomas [...] at this time. Denies chest pain currently. [facility] Medical History Aortic valve stenosis, acquired Atherosclerotic heart disease of [place] coronary artery without angina pectoris CAD (coronary [...] (1,000 unit) capsule 25 mcg PO DAILY htlxhse90/21/22 [History Last Taken 05/24/22] ipratropium 0.5 mg-albuterol [...] SOB 05/02/21 [History Last Taken 05/24/22] vitamins A,C,S-hxqe-oxvlwa 4,296 mcg-226 mg-90 mg capsule (PreserVision AREDS) [...] 83.1 H Lymph % (Auto) 5.0 L Beckham % (Auto) 8.3 Eos % (Auto) 3.2 [...] Clarity Clear Urine pH 5.0 Ur Specific [place] 1.015 Urine Protein 30 H Urine Glucose [...] 21:34 EST Reading Location ID and State: [facility] / [place] Tel , Service support , Cervical Spine CT 02/13/23 20:46 IMPRESSION: 1. No evidence of acute cervical spinal fracture or spondylolisthesis. 2. Multilevel degenerative changes of the cervical spine. 3. Straightening of the cervical spine which could be due to muscle spasm.. Electronically Signed: Jay Dowd MD at 21:38 EST Reading Location ID and State: [facility] / [place] Tel , Service support , Chest X-Ray [...] 2 cap PO BID PreserVision AREDS 14,320-226-200 fsru-zn-xjcf Capsule 1 cap PO BID lisinopril [Zestril] [...] your Primary Care Provider. Call [facility] ([phone]) or report to the closest Emergency Room. Call 911 if necessary. 02/13/232304 <Electronically signed by Jr Thomas DO> Cosigner Signature (if applicable): CC: Dr. Talya Nichols DO ~ Signed [facility] Work Phone: 1(353) 174-568609-19-2023 Note* Exam Date Time Procedure Performing Provider Status 11/28/22 10:16 AM Echocardiogram, Adult (AOH) Auth (Verified) [facility] 09-09-2023 Discharge summary Author Erika Godwin [facility] November 18, 2022 12:45pm Note Date/Time November 18, 2022 12:44pm [facility] Medical Records Department [address] [place] [address] Discharge Summary 11/18/22 1234 MR#: [id number] Acct: [id number] Name: BEULAH BRIGHT Rep #:[id number] : 1940 82 From: Erika Godwin MD PCP: Dr. Talya Nichols, Status:ADM [facility] Providers Date of Admission: 11/16/22 Date of Discharge: 11/18/22 Primary Care Physician: Dr. Talya Nichols, Consultations 11/17/22 02:11 Consult: Gastroenterology Routine Consulting Provider: [facility] Reason for Consult: GI bleed EMERGENT [...] (1,000 unit) capsule 25 mcg PO DAILY jzodrhq25/21/22 ipratropium 0.5 mg-albuterol 3 mg (2.5 mg base)/3 mL nebulization soln 3 ml inhalation 4X/DAY PRN sob 05/02/21 liothyronine 25 mcg tablet 25 mcg PO DAILY THYROID 05/02/21 omega-3 fatty acids-vitamin E 1,000 mg capsule 2 cap PO BID SUPPLEMENT 05/02/21 tiotropium bromide 18 mcg capsule with inhalation device (Spiriva with HandiHaler) 18 mcg inhalation DAILY SOB 05/02/21 vitamins A,C,K-ssuu-tuussj 4,296 mcg-226 mg-90 mg capsule (PreserVision AREDS) [...] 2 cap PO BID PreserVision AREDS 14,320-226-200 yqmw-bs-aeyn Capsule 1 cap PO BID lisinopril [Zestril] [...] Health Service Charges/Coding Visit Charges Inpatient E&M: 29702 Disch Hosp >30min 11/18/22 1245 <Electronically signed by Erika Godwin MD> Cosigner Signature (if applicable): CC: Dr. Erika Godwin MD; Dr. Talya Nichols DO~ Signed [facility] Work Phone: 1([phone]) 809-947109-08-2023 Consult note Author Fredy Friend [facility] November 17, 2022 6:08pm Note Date/Time November 17, 2022 6:05pm [facility] Medical Records Department [address] [place] [address] Consultation - GI 11/16/22 2300 MR#: [id number] Acct: [id number] Name: BEULAH BRIGHT Rep #:[id number] : 1940 82 From: Fredy Friend DO PCP: Dr. Talya Nichols, DO Status:ADM IN Location: [place] [address] HPI Consult Data Date of Consult: 11/16/22 [...] in the ED were temp of 98.1F, CA of 99, BP of 132/64, RR of [...] anemia likely due to upper GI bleed. [facility] Medical History (Updated 11/16/22 @ 19:57 by Christine Richmond) Aortic valve stenosis, acquired Atherosclerotic heart disease of [place] coronary artery without angina pectoris CAD (coronary [...] (1,000 unit) capsule 25 mcg PO DAILY ityeprj92/21/22 [History Last Taken 05/24/22] ipratropium 0.5 mg-albuterol [...] SOB 05/02/21 [History Last Taken 05/24/22] vitamins A,C,Y-qfbp-ciymbp 4,296 mcg-226 mg-90 mg capsule (PreserVision AREDS) [...] % (Auto) 58.6, Lymph % (Auto) 24.6, Beckham % (Auto) 7.1, Eos % (Auto) 8.8 [...] of 3 Charges/Coding Visit Charges Inpatient E&M: 84150 Init Hosp L3 11/17/22 180 <Electronically signed by Fredy Friend > Cosigner Signature (if applicable): CC: Dr. Talya Nichols DO; Dr. Sarai Alcantara MD~ Signed [facility] Work Phone: 1(755) 102-308409-08-2023 History and physical note Author [facility] November 17, 2022 4:58pm Note Date/Time November 16, 2022 6:58pm [facility] Medical Records Department [address] [place] [address] History & Physical Exam 11/16/22 1845 MR#: [id number] Acct: [id number] Name: BEULAH BRIGHT Rep #:[id number] 1 : 1940 82 From: Sarai Alcantara MD PCP: Dr. Talya Nichols DO Status:ADM IN Location: [place] [address] HPI - General General Date of Admission: [...] in the ED were temp of 98.1F, CA of 99, BP of 132/64, RR of [...] anemia likely due to upper GI bleed. [facility] Medical History Aortic valve stenosis, acquired Atherosclerotic heart disease of [place] coronary artery without angina pectoris CAD (coronary [...] (1,000 unit) capsule 25 mcg PO DAILY gdbacrh98/21/22 [History Last Taken 05/24/22] ipratropium 0.5 mg-albuterol [...] SOB 05/02/21 [History Last Taken 05/24/22] vitamins A,C,V-bxir-hvijnd 4,296 mcg-226 mg-90 mg capsule (PreserVision AREDS) [...] % (Auto) 67.7, Lymph % (Auto) 19.8, Beckham % (Auto) 6.2, Eos % (Auto) 5.5 [...] either needs intubation or CPR * total qfzu-sr-fkih time 18 minutes. Charges/Coding Visit Charges Inpatient E&M: 39095 Init Hosp L3 Procedures Hospitalists Procedures: 45317 Advncd Care Plan 30 Min 11/17/22 1658 <Electronically signed by Sarai Alcantara MD> Cosigner Signature (if applicable): CC: Dr. Talya Nichols DO; Dr. Sarai Alcantara MD~ Signed [facility] Work Phone: 1([phone]) 547-522609-08-2023 Progress note Author Sarai [facility] November 17, 2022 4:58pm Note Date/Time November 17, 2022 12:38pm [facility] Medical Records Department [facility] [place] [address] Progress Note 11/17/22 1212 MR#: [id number] Acct: [id number] Name: BEULAH BRIGHT Rep #:[id number] : 1940 82 From: Sarai Alcantara MD PCP: Dr. Talya Nichols DO Status:ADM IN Location: [place] [id number]- [id number] Subjective Subjective Patient seen and examined. [...] % (Auto) 67.7, Lymph % (Auto) 19.8, Beckham % (Auto) 6.2, Eos % (Auto) 5.5 [...] % (Auto) 58.6, Lymph % (Auto) 24.6, Beckham % (Auto) 7.1, Eos % (Auto) 8.8 [...] intubation * Charges/Coding Visit Charges Inpatient E&M: 10985 Subs Hosp L2 11/17/22 1658 <Electronically signed by Sarai Alcantara MD> Sarai Alcantara MD Cosigner Signature (if applicable): CC: ~ Signed [facility] Work Phone: 1([phone]) 354-850609-08-2023 Procedure [facility] 11-17-2022 Procedure [facility]09-07-2023 Discharge summary Author Lonnie Moreno [facility] November 16, 2022 6:57pm Note Date/Time November 16, 2022 4:47pm [facility] Medical Records Department [address] [place] [address] Emergency Department Summary 11/16/22 MR#: [id number] Acct: [id number] Name: BEULAH BRIGHT Rep #:[id number] : 1940 82 From: Lonnie Moreno [...] earlier this year showed good ejection fraction. [facility] Medical History Aortic valve stenosis, acquired Atherosclerotic heart disease of [place] coronary artery without angina pectoris CAD (coronary [...] (1,000 unit) capsule 25 mcg PO DAILY ounbqao00/21/22 [History Last Taken 05/24/22] ipratropium 0.5 mg-albuterol [...] SOB 05/02/21 [History Last Taken 05/24/22] vitamins A,C,B-cgli-cnuane 4,296 mcg-226 mg-90 mg capsule (PreserVision AREDS) [...] % (Auto) 67.7 Lymph % (Auto) 19.8 Beckham % (Auto) 6.2 Eos % (Auto) 5.5 [...] 17:47 EDT Reading Location ID and State: [facility] / [place] Tel , Service support , EKG Initial EKG: Comments: My independent interpretation of the patient's EKG shows sinus rhythm with first-degree AV block. Borderline tachycardia with overall rate of 97. There is some baseline variation and motion artifact but no ectopy. CA interval is long. QRS duration and QTc [...] 2 cap PO BID PreserVision AREDS 14,320-226-200 zuoe-vy-modz Capsule 1 cap PO BID lisinopril [Zestril] [...] Provider] - Disposition Disposition: Acute Care Hospital [facility] What to do if you have Problems For any increased pain, shortness of breath, bleeding, nausea or vomiting, chestpain, or any unexpected problems, contact your Primary Care Provider. Call [facility] ([phone]) or report to the closest Emergency Room. Call 911 if necessary. 11/16/221856 <Electronically signed by Lonnie Moreno MD> Cosigner Signature (if applicable): CC: Dr. Talya Nichols DO ~ Signed [facility] Work Phone: 1(343) 276-921909-07-2023 Discharge summary Author Lonnie Moreno [facility] November 16, 2022 6:57pm Note Date/Time November 16, 2022 4:47pm [facility] Medical Records Department [address] [place] [address] Emergency Department Summary 11/16/22 MR#: [id number] Acct: [id number] Name: BEULAH BRIGHT Rep #:[id number] 4 : 1940 82 From: Lonnie Moreno [...] earlier this year showed good ejection fraction. [facility] Medical History Aortic valve stenosis, acquired Atherosclerotic heart disease of [place] coronary artery without angina pectoris CAD (coronary [...] (1,000 unit) capsule 25 mcg PO DAILY hwgcpxo35/21/22 [History Last Taken 05/24/22] ipratropium 0.5 mg-albuterol [...] SOB 05/02/21 [History Last Taken 05/24/22] vitamins A,C,Q-cavw-fuyoaf 4,296 mcg-226 mg-90 mg capsule (PreserVision AREDS) [...] % (Auto) 67.7 Lymph % (Auto) 19.8 Beckham % (Auto) 6.2 Eos % (Auto) 5.5 [...] variation and motion artifact but no ectopy. CA interval is long. QRS duration and QTc [...] 2 cap PO BID PreserVision AREDS 14,320-226-200 igfn-dm-mwxo Capsule 1 cap PO BID lisinopril [Zestril] [...] Provider] - Disposition Disposition: Acute Care Hospital [facility] What to do if you have Problems For any increased pain, shortness of breath, bleeding, nausea or vomiting, chestpain, or any unexpected problems, contact your Primary Care Provider. Call [facility] ([phone]) or report to the closest Emergency Room. Call 911 if necessary. 11/16/22 1857 <Electronically signed by Lonnie Moreno MD> Cosigner Signature (if applicable): CC: Dr. Talya Nichols, DO ~ Signed [facility] Work Phone: 1([phone]) 367-741203-16-[address] Anders [facility] May 25, 2022 10:49am Note Date/Time May 25, 2022 10: 49am [facility] Medical Records Department [address] [place] [address] Progress Note - Hospitalist 05/25/22 1045 MR#: [id number] Acct: [id number] Name: BEULAH BRIGHT Rep #:[id number] 8 : 1940 81 From: John foster MD PCP: Dr. Talya Nichols, DO Status:ADM PAWEL Location: [place] [address] Subjective Subjective Doing well, says that he [...] 80.1 H, Lymph % (Auto) 10.9 L, Beckham % (Auto) 5.4, Eos % (Auto) 2.9, [...] 78.7 H, Lymph % (Auto) 12.6 L, Beckham % (Auto) 6.4, Eos % (Auto) 1.7, [...] DVT: Heparin Charges/Coding Visit Charges Inpatient E&M: 12814 Subs Hosp L2 05/25/22 1049 <Electronically signed by John Anders MD> Cosigner Signature (if applicable): CC: ~ Signed [facility] Work Phone: 1(842) 984-745003-15-2023 History and physical note Author Dr. Pardo [facility] May 24, 2022 4:24pm Note Date/Time May 24, 2022 4:1 5pm [facility] Medical Records Department [address] [place] [address] H&P Exam - Hospitalist 05/24/22 1559 MR#: [id number] Acct: [id number] Name: BEULAH BRIGHT Rep #:[id number] : 1940 81 From: Jennifer Pardo MD PCP: Dr. Talya Nichols, DO Status:ADM PAWEL Location: [place] [address] HPI - General General Date of Admission: 05/24/22 Date of Service: 05/24/22 Chief Complaint: SOB HPI Narrative BEULAH BRIGHT, is a 81 M with a history of heart failure, COPD on 2 L home O2,coronary artery disease, and hypertension who presented to [facility] 05/24/2022 with shortness of breath for [...] significant complaints, denied swelling in his extremities. 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 CAD (coronary [...] (1,000 unit) capsule 25 mcg PO DAILY bcpjpxy70/21/22 [History Last Taken 05/24/22] ipratropium 0.5 mg-albuterol [...] SOB 05/02/21 [History Last Taken 05/24/22] vitamins A,C,S-ssvl-hlzlam 4,296 mcg-226 mg-90 mg capsule (PreserVision AREDS) [...] 80.1 H, Lymph % (Auto) 10.9 L, Beckham % (Auto) 5.4, Eos % (Auto) 2.9, [...] documentation, 60minutes Charges/Coding Visit Charges Inpatient E&M: 38562 Init Hosp L2 05/24/22 1624 <Electronically signed by Jennifer Pardo MD> Cosigner Signature (if applicable): CC: Dr. Talya Nichols, DO; Dr. Jennifer Pardo MD~ Signed [facility] Work Phone: 1([phone]) 755-611503-15-[address] Edward [facility] May 24, 2022 3:51pm Note Date/Time May 24, 2022 11: 55am [facility] Medical Records Department [address] [place] [address] Emergency Department Summary 05/24/22 MR#: [id number] Acct: [id number] Name: BEULAH BRIGHT Rep #:[id number] : 1940 81 From: Yumiko Edward MD PCP: Dr. Talya Nichols, DO Status:ADM PAWEL Location: [place] [address] HPI History of Present Illness Chief Complaint: [...] to baseline. He denies any chest pain. [facility] Medical History Acute exacerbation of CHF (congestive heart failure) Aortic valve stenosis, acquired Atherosclerotic heart disease of [place] coronary artery without angina pectoris CAD (coronary [...] (1,000 unit) capsule 25 mcg PO DAILY dfdsoeq67/21/22 [History Last Taken 04/11/22] glimepiride 4 mg [...] SOB 05/02/21 [History Last Taken 04/11/22] vitamins A,C,Z-jjly-inneyn 4,296 mcg-226 mg-90 mg capsule (PreserVision AREDS) [...] Medical decision making narrative: Patient placed on director of cardiac rehabilitation. EKG obtained to evaluate for cardiac arrhythmia/ischemia. [...] 80.1 H Lymph % (Auto) 10.9 L Beckham % (Auto) 5.4 Eos % (Auto) 2.9 [...] (Auto) Neut % (Auto) Lymph % (Auto) Beckham % (Auto) Eos % (Auto) Baso % [...] there has been some debate between his real estate administrator and primary carephysician about how much Lasix he is supposed to be on. His real estate administrator wantedhim on 40 mg daily, however his [...] 2 cap PO BID PreserVision AREDS 14,320-226-200 clbn-li-infw Capsule 1 cap PO BID lisinopril [Zestril] 20 mg tablet 20 mg PO DAILY Hold Instructions: Resume on 03/18/22. carvedilol 6.25 mg tablet 6.25 mg PO DAILY aspirin 81 mg tablet,chewable 81 mg PO DAILY@0800 furosemide [Lasix] 40 mg tablet 20 mg PO DAILY Primary Care Provider: Talya Nichols Referrals: Talya Nichols DO [Primary Care Provider] - Disposition Disposition: Acute Care Hospital [facility] What to do if you have Problems For any increased pain, shortness of breath, bleeding, nausea or vomiting, chestpain, or any unexpected problems, contact your Primary Care Provider. Call [facility] ([phone]) or report to the closest Emergency Room. Call 911 if necessary. 05/24/22 9298 <Electronically signed by Yumiko Edward MD> Cosigner Signature (if applicable): CC: Dr. Talya Nichols DO ~ Signed [facility] Work Phone: [phone]) [phone] Edward [facility] May 24, 2022 3:51pm Note Date/Time May 24, 2022 11: 55am [facility] Medical Records Department [address] [place] [address] Emergency Department Summary 05/24/22 MR#: [id number] Acct: [id number] Name: BEULAH BRIGHT Rep #:[id number] 6 : 1940 81 From: Yumiko Edward MD PCP: Dr. Talya Nichols, DO Status:ADM PAWEL Location: [place] [address] HPI History of Present Illness Chief Complaint: [...] to baseline. He denies any chest pain. [facility] Medical History Acute exacerbation of CHF (congestive heart failure) Aortic valve stenosis, acquired Atherosclerotic heart disease of [place] coronary artery without angina pectoris CAD (coronary [...] mcg PO DAILY /21/22 [History Last Taken 04/11/22] glimepiride 4 mg [...] SOB 05/02/21 [History Last Taken 04/11/22] vitamins A,C,C-lffj-qpdkkt 4,296 mcg-226 mg-90 mg capsule (PreserVision AREDS) [...] Medical decision making narrative: Patient placed on director of cardiac rehabilitation. EKG obtained to evaluate for cardiac arrhythmia/ischemia. [...] 80.1 H Lymph % (Auto) 10.9 L Beckham % (Auto) 5.4 Eos % (Auto) 2.9 [...] (Auto) Neut % (Auto) Lymph % (Auto) Beckham % (Auto) Eos % (Auto) Baso % [...] there has been some debate between his real estate administrator and primary carephysician about how much Lasix he is supposed to be on. His real estate administrator wantedhim on 40 mg daily, however his [...] 2 cap PO BID PreserVision AREDS 14,320-226-200 zope-re-ybkg Capsule 1 cap PO BID lisinopril [Zestril] 20 mg tablet 20 mg PO DAILY Hold Instructions: Resume on 03/18/22. carvedilol 6.25 mg tablet 6.25 mg PO DAILY aspirin 81 mg tablet,chewable 81 mg PO DAILY@0800 furosemide [Lasix] 40 mg tablet 20 mg PO DAILY Primary Care Provider: Talya Nichols Referrals: Talya Nichols DO [Primary Care Provider] - Disposition Disposition: Acute Care Hospital [facility] What to do if you have Problems For any increased pain, shortness of breath, bleeding, nausea or vomiting, chestpain, or any unexpected problems, contact your Primary Care Provider. Call [facility] ([phone]) or report to the closest Emergency Room. Call 911 if necessary. 05/24/22 1301 <Electronically signed by Yumiko Edward MD> Cosigner Signature (if applicable): CC: Dr. Talya Nichols, DO ~ Signed [facility] Work Phone: 1(853) 816-170602-02-[address] Anders [facility] April 13, 2022 10:37am Note Date/Time April 13, 2022 1 0:37am [facility] Medical Records Department [address] [place] [address] Discharge Summary 04/13/22 1033 MR#: [id number] Acct: [id number] Name: BEULAH BRIGHT Rep #:[id number] 6 : 1940 81 From: John foster MD PCP: Dr. Talya Nichols DO Status:ADM IN Location: [place] [address] Providers Date of Admission: 04/11/22 Primary Care [...] (1,000 unit) capsule 25 mcg PO DAILY tsickao55/21/22 glimepiride 4 mg tablet 4 mg PO [...] 18 mcg inhalation DAILY SOB 05/02/21 vitamins A,C,O-gmzj-hbqkqe 4,296 mcg-226 mg-90 mg capsule (PreserVision AREDS) [...] should call either his PCP or his real estate administrator about taking extra Lasix. We will do [...] % (Auto) Cancelled, Lymph % (Auto) Cancelled, Beckham % (Auto) Cancelled, Eos % (Auto) Cancelled, [...] Tear DropCells Cancelled, Ovalocytes Cancelled, Stomatocytes Cancelled, [place] Bodies Cancelled, Glory Cells Cancelled, Bite Cells [...] % (Auto) 69.0, Lymph % (Auto) 20.3, Beckham % (Auto) 6.4, Eos % (Auto) 3.9, [...] % (Auto) 56.0, Lymph % (Auto) 29.3, Beckham % (Auto) 8.8, Eos % (Auto) 5.2 [...] to 5 days as well as your real estate administrator within a month. It is important that [...] Capsule 2 cap PO BID PreserVision AREDS 14,917-702-789 prjl-tv-cxvr Capsule 1 cap PO BID lisinopril [Zestril] 20 mg tablet 20 mg PO DAILY Hold Instructions: Resume on 03/18/22. carvedilol 6.25 mg tablet 6.25 mg PO DAILY aspirin 81 mg tablet,chewable 81 mg PO DAILY@0800 Discontinued torsemide 10 mg tablet 2.5 mg PO DAILY Referrals / Follow Up: Talya Nichols DO [Primary Care Provider] - 04/19/22 1:30 pm Bart Galo NP, [employer] SCIENCE RESEARCH TECHNICIAN-C [Med Staff - Adv Practice Prof] - 05/02/22 10:00 am Disposition Disposition (needs filled in before D/C Order can be placed): Home, Self Care Charges/Coding Visit Charges Inpatient E&M: 21475 Disch Hosp >30min 04/13/22 1037 <Electronically signed by John Anders MD> Cosigner Signature (if applicable): CC: Dr. Talya Nichols DO; Dr. John Anders MD~ Signed [facility] Work Phone: 1(387) 325-714802-02-[address] Anders [facility] April 13, 2022 9:58am Note Date/Time April 13, 2022 9 :55am [facility] Medical Records Department [address] [place] [address] Instructions for Home/Discharge Instructions 04/13/22 0954 MR#: [id number] Acct: [id number] Name: BEULAH BRIGHT Rep #:[id number] 8 : 1940 81 From: John foster [...] to 5 days as well as your real estate administrator within a month. It is important that [...] 2 cap PO BID PreserVision AREDS 14,320-226-200 rnfw-jw-bqhd Capsule 1 cap PO BID lisinopril [Zestril] [...] MD; Dr. Talya Nichols, DO ~ Signed [facility] Work Phone: 1(552) 557-707602-01-[address] Anders [facility] April 12, 2022 12:25pm Note Date/Time April 12, 2022 1 2:21pm [facility] Medical Records Department [address] [place] [address] Progress Note - Hospitalist 04/12/22 1210 MR#: [id number] Acct: [id number] Name: BEULAH BRIGHT Rep #:[id number] 6 : 1940 81 From: John foster MD PCP: Dr. Talya Nichols, DO Status:ADM IN Location: [place] [address] Subjective Subjective Doing well, no issues overnight. [...] % (Auto) 66.7, Lymph % (Auto) 22.4, Beckham % (Auto) 6.0, Eos % (Auto) 4.3, [...] % (Auto) Cancelled, Lymph % (Auto) Cancelled, Beckham % (Auto) Cancelled, Eos % (Auto) Cancelled, [...] Tear DropCells Cancelled, Ovalocytes Cancelled, Stomatocytes Cancelled, [place] Bodies Cancelled, [place] Cells Cancelled, Bite Cells Cancelled, Crenated Cell [...] DVT: Heparin Charges/Coding Visit Charges Inpatient E&M: 59805 Subs Hosp L2 04/12/22 1225 <Electronically signed by John Anders MD> Cosigner Signature (if applicable): CC: ~ Signed [facility] Work Phone: 1(348) 317-941102-01-2023 History and physical note Author Dr. Sainz [facility] April 11, 2022 11:39pm Note Date/Time April 11, 2022 9 :13pm [facility] Medical Records Department [address] [facility] [place] [address] H&P Exam - Hospitalist 04/11/222112 MR#: [id number] Acct: [id number] Name: BEULAH BRIGHT Rep #:[id number] 7 : 1940 81 From: Ayesha Sainz MD PCP: Dr. Talya Nichols, DO Status:ADM IN Location: [facility] [id number] HPI - General General Date of [...] x-ray showed bilateral effusions and bibasilar opacities/atelectasis. [facility] Medical History Aortic valve stenosis, acquired Atherosclerotic heart disease of [place] coronary artery without angina pectoris CAD (coronary [...] (1,000 unit) capsule 25 mcg PO DAILY sitbris01/21/22 [History Last Taken 03/11/22] glimepiride 4 mg [...] SOB 05/02/21 [History Last Taken 03/11/22] vitamins A,C,M-qxcf-ptkkhh 4,296 mcg-226 mg-90 mg capsule (PreserVision AREDS) [...] % (Auto) 66.7, Lymph % (Auto) 22.4, Beckham % (Auto) 6.0, Eos % (Auto) 4.3, [...] nursing staff. Charges/Coding Visit Charges Inpatient E&M: 45188 Init Hosp L3 04/11/22 2339 <Electronically signed by Ayesha Sainz MD> Cosigner Signature (if applicable): CC: Dr. Ayesha Sainz MD; Dr. Talya Nichols DO~ Signed [facility] Work Phone: 1(842) 518-539101-31-[address] Yan [facility] April 11, 2022 8:43pm Note Date/Time April 11, 2022 7 :03pm [facility] Medical Records Department [address] [place] [address] Emergency Department Summary 04/11/22 MR#: [id number] Acct: [id number] Name: BEULAH BRIGHT Rep #:[id number] : 1940 81 From: Dusty Yan [...] 1: Proximal - Moderate calcification, Proximal - [place] bend with 50 % Stenosis CIRCUMFLEX ARTERY: [...] Prior similar symptoms: Yes Recent Illness[facility] Medical History Aortic valve stenosis, acquired Atherosclerotic heart disease of [place] coronary artery without angina pectoris CAD (coronary [...] (1,000 unit) capsule 25 mcg PO DAILY qxoropd93/21/22 [History Last Taken 03/11/22] glimepiride 4 mg [...] SOB 05/02/21 [History Last Taken 03/11/22] vitamins A,C,U-oask-ysewwe 4,296 mcg-226 mg-90 mg capsule (PreserVision AREDS) [...] % (Auto) 66.7 Lymph % (Auto) 22.4 Beckham % (Auto) 6.0 Eos % (Auto) 4.3 [...] rate of 83 and first-degree AV block. CA interval 218 ms. QRS duration 80 ms. QT duration 256 ms. [place] is normal. There is no acute ischemic [...] 2 cap PO BID PreserVision AREDS 14,320-226-200 pipt-xd-aiio Capsule 1 cap PO BID lisinopril [Zestril] [...] Provider] - Disposition Disposition: Acute Care Hospital [facility] What to do if you have Problems For any increased pain, shortness of breath, bleeding, nausea or vomiting, chestpain, or any unexpected problems, contact your Primary Care Provider. Call [facility] ([phone]) or report to the closest Emergency Room. Call 911 if necessary. 04/11/222042 <Electronically signed by Dusty Yan MD> Cosigner Signature (if applicable): CC: Dr. Talya Nichols, DO ~ Signed [facility] Work Phone: 1(274) 547-898702-12-2022 Hospital Discharge instructions Patient Education 04/23/2021 16:15:50 [...] Cough with dark-colored or bloody sputum (mucus) 4030-2774 [employer]. [address] [place] [address]. All rights reserved. This information is not intended as a substitute for professional medical care. Always follow yourhealthcare professional's instructions. Follow Up Care 04/23/2021 13:41:51 With:TALYA NICHOLS DO Address: [phone] When:2-4 days [facility] Discharge summary Author Dr. Anders [facility] May 26, 2022 10:19am Note Date/Time May 26, 2022 10: 16am [facility] Medical Records Department [address] [place] [address] Instructions for Home/Discharge Instructions 05/26/22 1014 MR#: [id number] Acct: [id number] Name: BEULAH BRIGHT Rep #:[id number] : 1940 81 From: John foster [...] 2 cap PO BID PreserVision AREDS 14,320-226-200 vtbq-hy-maab Capsule 1 cap PO BID lisinopril [Zestril] [...] DO; Dr. Jennifer Pardo MD ~ Signed [facility] Work Phone: Discharge summary Author John Anders [facility] April 26, 2023 3:53pm Note Date/Time April 26, 2023 3:30pm [facility] Medical Records Department [address] [place] [address] Instructions for Home/Discharge Instructions 04/26/23 1529 MR#: [id number] Acct: [id number] Name: BEULAH BRIGTH Rep #:[id number] : 1940 82 From: John foster [...] 2 cap PO BID PreserVision AREDS 14,320-226-200 cmuu-mt-izzt Capsule 1 cap PO BID lisinopril [Zestril] [...] have lab orders waiting for you at [facility] to be done on sunday or Sunday) Disposition Disposition (needs filled in before D/C Order can be placed): Home, Self Care 04/26/23 1553<Electronically signed by John Anders MD>John Anders MD CC: Dr. Michelle Washburn DO; Dr. Talya Nichols DO; Dr. Trell Kendrick MD ~ Signed [facility] Work Phone: Discharge summary Author John Anders [facility] April 26, 2023 4:09pm Note Date/Time April 26, 2023 4:09pm [facility] Medical Records Department [address] [place] [address] Discharge Summary 04/26/23 1603 MR#: [id number] Acct: [id number] Name: BEULAH BRIGHT Rep #:[id number] : 1940 82 From: John foster MD PCP: Dr. Talya Nichols DO Status:ADM IN Location: [place] [address] Providers Date of Admission: 04/24/23 Primary Care [...] 18 mcg inhalation DAILY SOB 05/02/21 vitamins A,C,U-uthp-fywaat 4,296 mcg-226 mg-90 mg capsule (PreserVision AREDS) [...] [facility] of shortness of [...] shows first-degree heart block with a prolonged CA interval, normal QT interval with mild tachycardia [...] Neut % (Auto) 59.6, Lymph % (Auto) 24.7,Beckham % (Auto) 8.8, Eos % (Auto) 6.0 [...] 2 cap PO BID PreserVision AREDS 14,320-226-200 tkzn-dt-odqr Capsule 1 cap PO BID lisinopril [Zestril] [...] have lab orders waiting for you at [facility] to be done on sunday or Sunday) Disposition Disposition (needs filled in before D/C Order can be placed): Home, Self Care Charges/Coding Visit Charges Inpatient E&M: 95041 Disch Hosp >30min 04/26/23 1609 <Electronically signed by John Anders MD> Cosigner Signature (if applicable): CC: Dr. Talya Nichols DO; Dr. John Anders MD~ Signed [facility] Work Phone: Evaluation + Plan note Future Appointments Appointment Date:07/06/2021 02:00:00 PM Scheduled Provider:TALYA NICHOLS DO Location:[facility] Appointment Type:PC OV Follow Up Future Scheduled Tests Laboratory* Thyroid Stimulating Hormone 06/28/21 * A1C Hemoglobin 06/28/21 * Lipid Profile 06/28/21 * Vitamin D Level 06/28/21 * Complete Metabolic Panel 06/28/21 [facility] Evaluation + Plan note Future Appointments Appointment Date:01/12/2022 11:30:00 AM Scheduled Provider:TALYA NICHOLS DO Location:[facility] Appointment Type:PC OV [facility] Evaluation + Plan note Future Appointments Appointment Date:01/17/2022 01:30:00 PM Scheduled Provider:TALYA NICHOLS DO Location:[facility] Appointment Type: OV [facility] Evaluation + Plan note Future Appointments Appointment Date:04/25/2022 02:00:00 PM Scheduled Provider:TALYA NICHOLS DO Location:[facility] Appointment Type: OV [facility] Evaluation + Plan note Future Appointments Appointment Date:07/25/2022 02:00:00 PM Scheduled Provider:TALYA NICHOLS DO Location:[facility] Appointment Type: OV Future Scheduled Tests Laboratory* Complete Blood Count 06/09/22 * Microalbumin Level Urine 04/25/22 * Complete Metabolic Panel 05/12/22 * Complete Metabolic Panel 06/09/22 * N-Terminal proBNP 05/12/22 * N-Terminal proBNP 06/09/22 [facility] Evaluation + Plan note Future Appointments Appointment Date:07/25/2022 02:00:00 PM Scheduled Provider:TALYA NICHOLS DO Location:[facility] Appointment Type: OV Future Scheduled Tests Laboratory* Complete Blood Count 06/16/22 * Microalbumin Level Urine 04/25/22 * Complete Metabolic Panel 05/12/22 * Complete Metabolic Panel 06/16/22 * N-Terminal proBNP 05/12/22 * N-Terminal proBNP 06/16/22 [facility] Evaluation + Plan note Future Appointments Appointment Date:07/25/2022 02:00:00 PM Scheduled Provider:TALYA NICHOLS DO Location:[facility] Appointment Type:PC OV Future Scheduled Tests Laboratory* Microalbumin Level Urine 04/25/22 * Complete Metabolic Panel 05/12/22 * N-Terminal proBNP 05/12/22 [facility] Evaluation + Plan note Future Appointments Appointment Date:10/25/2022 04:30:00 PM Scheduled Provider:TALYA NICHOLS DO Location:[facility] Appointment Type:PC OV ED Follow Up Appointment Date:11/10/2022 11:30:00 AM Scheduled Provider:TALYA NICHOLS DO Location:[facility] Appointment Type:PC OV Appointment Date:11/16/2022 10:30:00 AM Scheduled Provider:TALYA NICHOLS DO Location:[facility] Appointment Type:PC OV Future Scheduled Tests Laboratory* Microalbumin Level Urine 04/25/22 * Complete Metabolic Panel 05/12/22 * N-Terminal proBNP 05/12/22 [facility] Evaluation + Plan note Future Appointments Appointment Date:11/10/2022 11:30:00 AM Scheduled Provider:TALYA NICHOLS DO Location:[facility] Appointment Type:PC OV Appointment Date:11/15/2022 09:30:00 AM Scheduled Provider: Location:[facility] Appointment Type:CV OV Future Scheduled Tests Laboratory* Microalbumin Level Urine 04/25/22 * Complete Metabolic Panel 05/12/22 * N-Terminal proBNP 05/12/22 [facility] Evaluation + Plan note Future Appointments Appointment Date:11/28/2022 10:00:00 AM Scheduled Provider: Location:[facility] Appointment Type:CV Procedure - AOH Echo Appointment Date:01/19/2023 11:30:00 AM Scheduled Provider:TALYA NICHOLS DO Location:[facility] Appointment Type:PC OV Diagnostic Tests Pending * Renin, Plasma 11/24/22 Future Scheduled Tests Laboratory* Microalbumin Level Urine 04/25/22 * Complete Metabolic Panel 05/12/22 [facility] Evaluation + Plan note Future Appointments Appointment Date:11/30/2022 09:20:00 AM Scheduled Provider:MELONIE BULLARD APRN, CNP Location:[facility] Appointment Type:PC OV Appointment Date:01/19/2023 11:30:00 AM Scheduled Provider:TALYA NICHOLS DO Location:[facility] Appointment Type:PC OV Future Scheduled Tests Laboratory* Microalbumin Level Urine 04/25/22 * Complete Metabolic Panel 05/12/22 [facility] Evaluation + Plan note Future Appointments Appointment Date:02/09/2023 02:45:00 PM Scheduled Provider: Location:[facility] Appointment Type:CV OV Appointment Date:03/02/2023 08:30:00 AM Scheduled Provider:TALYA NICHOLS DO Location:[facility] Appointment Type:PC OV Future Scheduled Tests Laboratory* Complete Blood Count 01/19/23 * Microalbumin Level Urine 04/25/22 * Complete Metabolic Panel 01/19/23 * Complete Metabolic Panel 05/12/22 [facility] Evaluation + Plan note Future Appointments Appointment Date:02/09/2023 02:45:00 PM Scheduled Provider: Location:[facility] Appointment Type:CV OV Appointment Date:03/02/2023 08:30:00 AM Scheduled Provider:TALYA NICHOLS DO Location:[facility] Appointment Type:PC OV Future Scheduled Tests Laboratory* Basic Metabolic Panel 02/02/23 * Complete Blood Count 02/02/23 [facility] Evaluation + Plan note Future Appointments Appointment Date:02/09/2023 02:45:00 PM Scheduled Provider: Location:[facility] Appointment Type:CV OV Appointment Date:03/02/2023 08:30:00 AM Scheduled Provider:TALYA NICHOLS DO Location:[facility] Appointment Type:PC OV [facility] Evaluation + Plan note Future Appointments Appointment Date:02/23/2023 11:00:00 AM Scheduled Provider:TALYA NICHOLS DO Location:[facility] Appointment Type:PC OV TCM 30 Appointment Date:03/02/2023 08:30:00 AM Scheduled Provider:TALYA NICHOLS DO Location:[facility] Appointment Type:PC OV Future Scheduled Tests Laboratory* Basic Metabolic Panel 02/08/23 * Complete Blood Count 02/08/23 [facility] Evaluation + Plan note Future Appointments Appointment Date:03/02/2023 08:30:00 AM Scheduled Provider:TALYA NICHOLS DO Location:[facility] Appointment Type:PC OV Future Scheduled Tests Laboratory* Basic Metabolic Panel 02/08/23 * Complete Blood Count 02/08/23 [facility] Evaluation + Plan note Future Appointments Appointment Date:04/13/2023 01:30:00 PM Scheduled Provider:TALYA NICHOLS DO Location:[facility] Appointment Type:PC OV Future Scheduled Tests Laboratory* [...] Count 02/08/23 * Complete Metabolic Panel 04/11/23 [facility] evaluation + Plan note Future Appointments Appointment Date:05/11/2023 12:30:00 PM Scheduled Provider:TALYA NICHOLS DO Location:[facility] Appointment Type:PC OV Future Scheduled Tests Laboratory* [...] Metabolic Panel 04/13/23 * N-Terminal proBNP 04/13/23 [facility] Evaluation + Plan note Future Appointments Appointment Date:06/19/2023 11:00:00 AM Scheduled Provider:TALYA NICHOLS DO Location:[facility] Appointment Type:PC OV Future Scheduled Tests Laboratory* [...] N-Terminal proBNP 05/17/23 * N-Terminal proBNP 04/13/23 [facility] Evaluation + Plan note Future Appointments [...] Metabolic Panel 04/13/23 * N-Terminal proBNP 04/13/23 [facility] Evaluation + Plan note Future Appointments Appointment Date:06/19/2023 11:00:00 AM Scheduled Provider:TALYA NICHOLS DO Location:[facility] Appointment Type:PC OV Future Scheduled Tests Laboratory* [...] Metabolic Panel 04/13/23 * N-Terminal proBNP 04/13/23 [facility] Evaluation + Plan note Future Appointments Appointment Date:06/11/2023 11:00:00 AM Scheduled Provider:TALYA NICHOLS DO Location:[facility] Appointment Type:PC OV Future Scheduled Tests Laboratory* [...] Metabolic Panel 04/13/23 * N-Terminal proBNP 04/13/23 [facility] Evaluation + Plan note Future Appointments Appointment Date:08/28/2023 02:00:00 PM Scheduled Provider:TALYA NICHOLS DO Location:[facility] Appointment Type:PC OV Future Scheduled Tests Laboratory* [...] Panel 04/11/23 * Complete Metabolic Panel 04/13/23 [facility] evaluation noteNo assessment information available [facility] Work Phone: evaluation note* Diagnosis Onset Date Resolution Status Debility acute Dehydration acute Polyarthralgia acute Acute on chronic renal insufficiency chronic COPD (chronic obstructive pulmonary disease) [facility] Work Phone: evaluation note* Diagnosis [...] (chronic obstructive pulmonary disease) chronic HTN (hypertension) [facility] Work Phone: Evaluation note* Diagnosis [...] exacerbation of CHF (congestive heart failure) chronic [facility] Work Phone: evaluation note* Diagnosis Onset [...] exacerbation of CHF (congestive heart failure) chronic [facility] Work Phone: Evaluation note* Diagnosis Onset [...] insufficiency chronic Atherosclerotic heart diseas e of [place] coronary artery without angina pectoris acute Diastolic CHF acute Essential hypertension chron ic HLD (hyperlipidemia) chronic Nonrheumatic aortic (valve) stenosis chronic Renal insufficiency chronic CHF (congestive heart failure) acute History of CAD (coronary artery disease) acute [facility] Work Phone: Evaluation note* Diagnosis Onset Date Resolution Status Atherosclerotic heart diseas e of [place] coronary artery without angina pectoris acute Diastolic CHF acute Essential hypertension chron ic HLD (hyperlipidemia) chronic Nonrheumatic aortic (valve) stenosis chronic Renal insufficiency chronic [facility] Work Phone: Evaluation note* Diagnosis Onset Date Resolution Status Anemia acute GI bleed acute [facility] Work Phone: Evaluation note* Diagnosis Onset Date Resolution Status Anemia resolved GI bleed resolved [facility] Work Phone: Evaluation note* Diagnosis Onset Date Resolution Status Anemia resolved GI bleed resolved Acute bronchospasm acute Acute exacerbation of chroni c obstructive pulmonary disease (COPD) [facility] Work Phone: Evaluation note* Diagnosis Onset Date Resolution Status Anemia resolved GI bleed resolved Acute bronchospasm acute Near syncope acute Acute exacerbation of chroni c obstructive pulmonary disease (COPD) [facility] Work Phone: Evaluation note* Diagnosis Onset Date Resolution Status Anemia chronic GI bleed resolved Near syncope resolved Anemia chronic Acute upper gastrointestinal bleeding acute Symptomatic anemia acute Acute on chronic blood loss anemia chronic COPD (chronic obstructive pulmonary disease) chronic [facility] Work Phone: Evaluation note* Diagnosis Onset Date Resolution Status Anemia chronic GI bleed resolved Near syncope resolved Anemia chronic Acute upper gastrointestinal bleeding acute Symptomatic anemia acute Acute on chronic blood loss anemia chronic Anemia chronic COPD (chronic obstructive pulmonary disease) chronic GI bleed resolved [facility] Work Phone: Evaluation note* Diagnosis Onset Date Resolution Status Near syncope resolved Anemia chronic Acute upper gastrointestinal bleeding acute Anemia chronic COPD (chronic obstructive pulmonary disease) chronic Acute on chronic blood loss anemia resolved GI bleed resolved Acute upper gastrointestinal bleeding acute [facility] Work Phone: Evaluation note* Diagnosis Onset Date Resolution Status Near syncope resolved Anemia chronic Acute upper gastrointestinal bleeding acute Anemia chronic COPD (chronic obstructive pulmonary disease) chronic Acute on chronic blood loss anemia resolved GI bleed resolved Acute upper gastrointestinal bleeding acute Anemia chronic [facility] Work Phone: Evaluation note* Diagnosis Onset [...] (HFpEF) acute Atherosclerotic heart diseas e of [place] coronary artery without angina pectoris acute Carotid artery stenosis acut e Elevated brain natriuretic peptide (BNP) level acute Elevated troponin acute Hypoxia acute Anemia chronic Essential hypertension chron ic HLD (hyperlipidemia) chronic Nonrheumatic aortic (valve) stenosis chronic Renal insufficiency chronic [facility] Work Phone: Evaluation note* Diagnosis Onset Date Resolution Status Near syncope resolved Anemia chronic Acute upper gastrointestinal bleeding acute Anemia chronic COPD (chronic obstructive pulmonary disease) chronic Acute on chronic blood loss anemia resolved GI bleed resolved Acute upper gastrointestinal bleeding acute Anemia chronic Acute dyspnea acute Atherosclerotic heart diseas e of [place] coronary artery without angina pectoris acute Carotid artery stenosis acut e Elevated brain natriuretic peptide (BNP) level acute Elevated troponin acute Hypoxia acute Anemia chronic Essential hypertension chron ic HLD (hyperlipidemia) chronic Nonrheumatic aortic (valve) stenosis chronic Renal insufficiency chronic Acute on chronic heart failu re with preserved ejection fraction (HFpEF) resolved [facility] Work Phone: Evaluation note* Diagnosis Onset Date Resolution Status Acute upper gastrointestinal bleeding acute Anemia chronic COPD (chronic obstructive pulmonary disease) chronic Acute on chronic blood loss anemia resolved GI bleed resolved Acute upper gastrointestinal bleeding acute Anemia chronic Acute dyspnea acute Atherosclerotic heart diseas e of [place] coronary artery without angina pectoris acute Carotid artery stenosis acut e Elevated brain natriuretic peptide (BNP) level acute Elevated troponin acute Hypoxia acute Anemia chronic Essential hypertension chron ic HLD (hyperlipidemia) chronic Nonrheumatic aortic (valve) stenosis chronic Renal insufficiency chronic Acute on chronic heart failu re with preserved ejection fraction (HFpEF) resolved [facility] Work Phone: History and physical note Author Dr. Pardo [facility] May 24, 2022 4:24pm Note Date/Time May 24, 2022 4:1 5pm [facility] Medical Records Department [address] [place] [address] H&P Exam - Hospitalist 05/24/22 1559 MR#: [id number] Acct: [id number] Name: BEULAH BRIGHT Rep #:[id number] : 1940 81 From: Jennifer Pardo MD PCP: Dr. Talya Nichols, DO Status:ADM PAWEL Location: [place] [address] HPI - General General Date of Admission: 05/24/22 Date of Service: 05/24/22 Chief Complaint: SOB HPI Narrative BEULAH BRIGHT, is a 81 M with a history of heart failure, COPD on 2 L home O2,coronary artery disease, and hypertension who presented to [facility] 05/24/2022 with shortness of breath for [...] significant complaints, denied swelling in his extremities. 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 CAD (coronary [...] (1,000 unit) capsule 25 mcg PO DAILY gwmimbk22/21/22 [History Last Taken 05/24/22] ipratropium 0.5 mg-albuterol [...] SOB 05/02/21 [History Last Taken 05/24/22] vitamins A,C,Q-irej-aeynab 4,296 mcg-226 mg-90 mg capsule (PreserVision AREDS) [...] 80.1 H, Lymph % (Auto) 10.9 L, Beckham % (Auto) 5.4, Eos % (Auto) 2.9, [...] 12:39 EDT Reading Location ID and State: [address] [place] [address] Tel , Service support , Assessment & [...] documentation, 60minutes Charges/Coding Visit Charges Inpatient E&M: 21950 Init Hosp L2 05/24/22 1624 <Electronically signed by Jennifer Pardo MD> Cosigner Signature (if applicable): CC: Dr. Talya Nichols DO; Dr. Jennifer Pardo MD~ Signed [facility] Work Phone: History and physical note Author Fredy Joy [facility] April 02, 2023 10:43am Note Date/Time April 02, 2023 9 :51am [facility] Medical Records Department [address] [place] [address] History & Physical Exam 04/02/23 0951 MR#: [id number] Acct: [id number] Name: BEULAH BRIGHT Rep #:[id number] : 1940 82 From: Fredy Joy DO PCP: Dr. Talya Nichols DO Status:[facility] Location: [place] [address] History and Physical Date of Admission: 04/02/23 [...] in the ED were temp of 98.1F, CA of 99, BP of 132/64, RR of [...] in the stomach that were endoscopically treated. [facility] Medical History Acute and chronic respiratory failure with hypoxia Aortic valve stenosis, acquired Atherosclerotic heart disease of [place] coronary artery without angina pectoris CAD (coronary [...] SOB 05/02/21 [History Last Taken 02/15/23] vitamins A,C,W-xckc-rvyets 4,296 mcg-226 mg-90 mg capsule (PreserVision AREDS) [...] % (Auto) 63.7, Lymph % (Auto) 25.2, Beckham % (Auto) 8.2, Eos % (Auto) 2.5, [...] bleeding: PLAN: 82-year-old male who presented to [facility] ED on 03/07/2023 with worsening shortness [...] no clinicalchanges since date of exam. 04/02/23 9247 <Electronically signed by Fredy Joy DO> Cosigner [...] Nichols DO; Fredy Joy DO ~* Signed [facility] Work Phone: History and physical note Author Tracy Angel [facility] Note Date/Time June 23, 2024 5:5 4pm [facility] Medical Records Department [address] [place] [address] H&P Exam - Hospitalist 06/23/24 1734 MR#: [id number] Acct: [id number] Name: BEULAH BRIGHT Rep #:[id number] : 1940 84 From: Tracy Angel MD PCP: Dr. Yuridia Hernandez MD Status:ADM I N Location: [place] [address] HPI - General General Date of Admission: [...] Disease, Nonobstructive CAD who presents to the [facility] ED with history of worsening shortness [...] catheterization (LHC) (~03/15/22) Atherosclerotic heart disease of [place] coronary artery without angina pectoris Aortic valve [...] with inhalation device (Spiriva with HandiHaler) vitamins A,C,U-txdw-hkycqm 4,296 1 cap PO BID vitamin 12/13/21 [...] 71.4 H, Lymph % (Auto) 17.7 L, Beckham % (Auto) 6.6, Eos % (Auto) 3.5, [...] No acute abnormality is seen. 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 Charges/Coding Visit Charges Inpatient E&M: 97411 Init Hosp L3 Procedures Hospitalists Procedures: 44202 Advncd Care Plan 30 Min 06/23/24 9650 <Electronically signed by Tracy Angel MD> Cosigner Signature (if applicable): CC: Dr. Tracy Angel MD; Dr. Yuridia Hernandez MD~ Signed [facility] Work Phone: Hospital course Narrative No data available for this section [facility] Hospital Discharge instructions No data available for this section [facility] Hospital Discharge instructions Additional Instructions Follow-up with your primary care physician. Your EKG and labs today were consistent with your normal baseline. No specific new or concerning changes. Return if you are feeling worse. Use your inhalers as needed.[facility] Work Phone: Hospital Discharge instructions Additional Instructions Your workup today shows that everything is stable compared to your previous admission. Continue all of your medications as directed by your doctor. Continue to wear your oxygen between 2 and 4 L as needed for shortness of breath sensation and return to the ER should you have any further [facility] Work Phone: Progress note No data available for this section [facility] Protbpyk note Author Fredy Joy [facility] March 09, 2023 4:23pm Note Date/Time March 09, 2023 4:23pm [facility] Medical Records Department [address] [place] [id number] Progress Note - GI 03/09/23 1621 MR#: [id number] Acct: [id number] Name: BEULAH BRIGHT Rep #:[id number] : 1940 82 From: Fredy Joy DO PCP: Dr. Talya Nichols, DO Status:ADM IN Location: [place] [address] Subjective Subjective Patient is doing well. He [...] % (Auto) 57.7, Lymph % (Auto) 25.7, Beckham % (Auto) 9.8, Eos % (Auto) 5.8 [...] is an 82-year-old male who presented to [facility] ED on03/07/2023 with worsening shortness of [...] 5 days. Charges/Coding Visit Charges Inpatient E&M: 14340 Subs Hosp L3 03/09/23 8103 <Electronically signed by Fredy Friend DO> Cosigner Signature (if applicable): CC: ~ Signed [facility] Work Phone: Reason for referral (narrative)No reason for referral information availableWMartins Ferry Hospital Work Phone: Summary Purpose Family History [...] Yes December 08, 2021 8:41am [employer] Yes November 8:41am Name of Medical [employer] ana m yadav December 08, 2021 8:41am Advance Directive Response Recorded Date/ Time Name of Medical [employer] ana m yadav December 08, 2021 8:41am Name of Medical [employer] Ana M carey r December 13, 2021 2:20pm Living Will Yes December 13 2:20pm [employer] Yes December 13, 2 022 2:20pm Advance Directive Response Recorded Date/ Time Name of Medical [employer] ana m yadav December 08, 2021 7:41am Name of Medical [employer] Ana M carey r December 13, 2021 1:20pm Living Will No March 12 3:45am [employer] No March 12, 023 3:45am Advance Directive Response Recorded Date/ Time Name of Medical [employer] Ana M carey r December 13, 2021 1:20pm Name of Medical [employer] ANA MJigarDAEVAE R April 11, 2022 6:15pm Living Will Yes April 11 6:15pm [employer] Yes April 11, 2022 6:15pm Advance Directive Response Recorded Date/ Time Name of Medical [employer] ANA M-DAEVAE R April 11, 2022 6:15pm Living Will Yes April 11 11:35pm [employer] No April 11, 2022 11:35pm Advance Directive Response Recorded Date/ Time Name of Medical [employer] ADE R April 11, 2022 7:15pm Living Will Yes May 24, 2022 11:15am [employer] No May 24 11:15am Advance Directive Response Recorded Date/ Time Name of Medical [employer] ADE R April 11, 2022 7:15pm Living Will Yes May 24, 2022 5:48pm [employer] No May 24 5:48pm Advance Directive Response Recorded Date/ Time Name of Medical [employer] daughter October 22, 2022 8:23pm Living Will Yes October 22 8:23pm [employer] Yes October 22, 023 8:23pm Advance Directive Response Recorded Date/ Time Name of Medical [employer] daughter October 22, 2022 8:23pm Name of Medical [employer] recalled November 16, 2022 4:31pm Living Will Yes November 16, 023 4:31pm [employer] Yes November 16, 2022 4:31pm Advance Directive Response Recorded Date/ Time Name of Medical [employer] daughter October 22, 2022 8:23pm Name of Medical [employer] recalled November 16, 2022 7:49pm Living Will Yes November 16, 7:49pm [employer] Yes November 16, 2022 7:49pm Advance Directive Response Recorded Date/ Time Name of Medical [employer] daughter October 22, 2022 7:23pm Name of Medical [employer] recalled November 16, 2022 6:49pm Name of Medical [employer] nikunj Wilson er February 08, 2023 5:53pm Name of Medical [employer] UNSURE February 13, 2023 8:14pm Living Will Yes February 13 8:14pm [employer] Yes February 13, 2023 8:14pm Advance Directive Response Recorded Date/ Time Name of Medical [employer] daughter October 22, 2022 7:23pm Name of Medical [employer] recalled November 16, 2022 6:49pm Name of Medical [employer] nikunj Wilson er February 08, 2023 5:53pm Name of Medical [employer] UNSURE February 13, 2023 8:14pm Living Will Yes February 13 11:53pm [employer] No February 13, 2023 11:53pm Advance Directive Response Recorded Date/ Time Name of Medical [employer] recalled November 16, 2022 6:49pm Name of Medical [employer] Ana M daught er February 08, 2023 5:53pm Name of Medical [employer] UNSURE February 13, 2023 8:14pm Living Will No March 07, 2 023 6:30pm [employer] No March 07, 2023 6:30pm Advance Directive Response Recorded Date/ Time Name of Medical [employer] recalled November 16, 2022 6:49pm Name of Medical [employer] Ana M daught er February 08, 2023 5:53pm Name of Medical [employer] UNSURE February 13, 2023 8:14pm Name of Medical [employer] Ana M Singletary March 07, 2023 10:14pm Living Will Yes March 07, 023 10:14pm [employer] Yes March 07, 2023 10:14pm Advance Directive Response Recorded Date/ Time Name of Medical [employer] ON FILE March 28, 2023 11:29am Living Will Yes March 28 11:29am [employer] Yes March 28, 2023 11:29am Name of Medical [employer] Ana M daught er February 08, 2023 5:53pm Name of Medical [employer] UNSURE February 13, 2023 8:14pm Name of Medical [employer] Ana M Singletary March 07, 2023 10:14pm Advance Directive Response Recorded Date/ Time Name of Medical [employer] ON FILE March 28, 2023 11:29am Name of Medical [employer] ANA M April 07, 2023 1:45pm Living Will Yes April 07 1:45pm [employer] Yes April 07, 2023 1:45pm Name of Medical [employer] Ana M daught er February 08, 2023 5:53pm Name of Medical [employer] UNSURE February 13, 2023 8:14pm Name of Medical [employer] Ana M Hayder March 07, 2023 10:14pm Advance Directive Response Recorded Date/ Time Name of Medical [employer] ON FILE March 28, 2023 11:29am Name of Medical [employer] ANA M April 07, 2023 1:45pm Living Will No April 24 024 3:39pm [employer] No April 24, 2023 3:39pm Name of Medical [employer] Ana M, daught er February 08, 2023 5:53pm Name of Medical [employer] UNSURE February 13, 2023 8:14pm Name of Medical [employer] Ana M Hayder March 07, 2023 10:14pm Advance Directive Response Recorded Date/ Time Name of Medical [employer] ON FILE March 28, 2023 11:29am Name of Medical [employer] ANA M April 07, 2023 1:45pm Living Will Yes April 24 024 8:08pm [employer] No April 24, 2023 8:08pm Name of Medical [employer] Ana M, daught er February 08, 2023 5:53pm Name of Medical [employer] RE February 13, 2023 8:14pm Name of Medical [employer] Ana M Hayder March 07, 2023 10:14pm Advance Directive Response Recorded Date/ Time Name of Medical [employer] ON FILE March 28, 2023 11:29am Name of Medical [employer] ANA M April 07, 2023 1:45pm Name of Medical [employer] Ana M, daught er February 08, 2023 5:53pm Name of Medical [employer] UNSURE February 13, 2023 8:14pm Name of Medical [employer] Ana M Hayder March 07, 2023 10:14pm Name of Medical [employer] ANA M- [facility] April 30, 2023 9:47pm Living Will Yes April 30 9:47pm [employer] Yes April 30, 2023 9:47pm Advance Directive Response Recorded Date/ Time Name of Medical [employer] ON FILE March 28, 2023 12:29pm Name of Medical [employer] ANA M April 07, 2023 2:45pm Name of Medical [employer] Ana M Hayder March 07, 2023 11:14pm Name of Medical [employer] ANA M- [facility] April 30, 2023 10:47pm Living Will No June 27, 2023 3:34pm [employer] No June 26 3:34pm Advance Directive Response Recorded Date/ Time Living Will No June 23, 2024 2:33pm Do you have a Healthcare [employer]? No June 23, 2024 2:33pm Living Will Yes February 27 7:32pm Do you have a Healthcare [employer]? Yes February 28, 2024 7:32pm Name of Medical [employer] Ana M February 28, 2024 7:32pm Advance Directive Response Recorded Date/ Time Living Will No June 23, 2024 6:43pm Do you have a Healthcare [employer]? No June 23, 2024 6:43pm Living Will Yes February 27 7:32pm Do you have a Healthcare [employer]? Yes February 28, 2024 7:32pm Name of Medical [employer]ic Ana M February 28, 2024 7:32pm Advance Directive Response Recorded Date/ Time Living Will No June 23, 2024 6:43pm Do you have a Healthcare [employer]? No June 23, 2024 6:43pm Chief Complaint [...] Congestive heart failure Congestive heart failure s/p [facility] ED 03-16-22 CHF Reason for Visit Bilateral [...] stenosis Renal insufficiency Atherosclerotic heart disease of [place] coronary artery without angina pectoris Diastolic CHF [...] Congestive heart failure Congestive heart failure s/p [facility] ED 03-16-22 CHF Congestive heart failure Reason [...] stenosis Renal insufficiency Atherosclerotic heart disease of [place] coronary artery without angina pectoris Diastolic CHF Essential hypertension HLD (hyperlipidemia) Nonrheumatic aortic (valve) stenosis Renal insufficiency CHF (congestive heart failure) History of CAD (coronary artery disease) Chief Complaint 2 M FU sob Reason for Visit Atherosclerotic hear t disease of [place] coronary artery without angina pectoris Diastolic CHF [...] ejection fraction (HFpEF) 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 [...] Anemia Acute dyspnea 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 [...] Anemia Acute dyspnea 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 [...] section and content) DATE CREATED AUTHOR 11/28/2018 [facility] ([place] DATE CREATED AUTHOR AUTHOR'S ORGANIZ ATION 08/20/2023 [facility] ([place] DATE CREATED AUTHOR AUTHOR'S ORGANIZ ATION 04/05/2024 [facility] DATE CREATED AUTHOR AUTHOR'S ORGANIZ ATION 08/07/2024 [facility] Care Team (unrecognized sect ion and content) Care Team Personnel Name: TALYA NICHOLS DO Position: P4 Physician - Primary Care Med Service: Active Provider Member Role: Primary Care Physician Address: Address: [address] [place] [address] Care Team Related Persons Name: ANA M YADAV Care Team Personnel Name: TALYA NICHOLS DO Position: P4 Physician - Primary Care Member Role: Primary Care Physician Address: Address: [address] [place] [address] Care Team Related Persons Name: ANA M SINGLETARY Care Team Personnel Name: TALYA NICHOLS DO Position: P4 Physician - Primary Care Member Role: Primary Care Physician Address: Address: [address] [place] [address] Care Team Related Persons Name: ANA M [...] Provider, Referri ng Provider Active Bart Galo [employer]EARCH TECHNICIAN, [employer] SCI[employer] RESEARCH TECHNICIAN-C Attending Provider Active Team Status: Active Member [...] Admit Provider, Other Provider Active Dr. Erika Godwni MD Other Provider Active Dr. Fredy Joy [...] , DO Primary Care Provider Active Dr. Diimtry Lott MD Attending Provider, Emergency Pro vider [...] Provider, Other Provider Ac tive Dr. John Adners MD Attending Provider, Other Provider Active Dr. [...] Inactive Member Role Status Dates Dr. Talya Ncihols DO Primary Care Provider Active Dalton Forrest [...] Active Start: March 01, 2024 Dr. Jennifer Prado MD Admit Provider Active Star t: March [...] BE BASED ON THE PRIMARY CLINICAL RECORDS. [facility] [employer] provides no warranty or guarantee of the accuracy or completeness of information in this document.
--- OUTSIDE RECORDS SUMMARY | 2024-08-21 00:42 | XMS RPT_ITS | CCD ---
Author Organization [facility] CliniSyne Care Team Providers Care Library Associate Name Role Phone TALYA NICHOLS DO Primary Care Physician [phone] Dr. Talya Nichols Primary Care Provider Dr. Randy Villanueva Emergency Provider Dr. Tracy Angel Admit Provider Dr. Tracy Angel Other Provider Dr. Andre Rodriguez Attending Provider [phone] Dr. Sarai Alcantara Attending Provider Korsedrick, Dr. Sarai Ortega Other Provider Dr. Talya Nichols Primary Care Provider Dr. Randy Villanueva Emergency Provider Dr. Tracy Angel Admit Provider Dr. Tracy Angel Other Provider Dr. Sarai Alcantara Attending Provider Dr. Julian Jang Attending Provider [phone] Tracy Angel Referring Provider Dr. Sarai Alcantara Other Provider Dr. Eric Lester Emergency Provider Dr. Andre Rodriguezit Provider Dr. Andre Rodriguez Attending Provider Dr. Andre Rodriguez Other Provider Dr. Anthony Sosa Other Provider [phone] Yuridia Blunt Attending Provider Dr. Yuridia Blunt Other Provider Dr. Anthony Sosa Attending Provider Dr. Gustavo Tariq Attending Provider Dr. John Anders Other Provider Dr. John Anders Attending Provider Dr. Dusty Yan Emergency Provider gerri, Dr. Hodge Admit Provider Emeli, Dr. Hodge [facility]ending [facility]. Hodge Other Provider Dr. Talya Nichols Primary Care Provider Dr. Eric Lester Emergency Provider Dr. Andre Rodriguez Admit Provider Dr. Andre Rodriguez Attending Provider Dr. Andre Rodriguez Other Provider Dr. Anthony Sosa Other Provider Dr. Yuridia lBunt Attending Provider Dr. Yuridia Blunt Other Provider Dr. Anthony Sosa Attending Provider Dr. Gustavo Tariq Attending Provider Dr. John Anders Other Provider Dr. John Anders Attending Provider Dr. Dusty Yan Emergency Provider Emeli, Dr. Hodge Admit Provider Emeli, Dr. Hodge Attending Provider Nugerri, Dr. Hodge Other Provider Dr. Talya Nichols Referring Provider [phone] Iraj SCALE OPERATOR, SCALE OPERATORAileen Santiago Attending Provider Dr. Yumiko Edward Emergency Provider [phone] Jennifer Pardo Admit Provider Dr. Jennifer Pardo Other Provider Dr. Talya Nichols Primary Care Provider Dr. Talya Nichols Referring Provider [phone] [facility] SCALE OPERATOR, SCALE OPERATOR-Fidencio Santiago Attending Provider Dr. Talya Nichols Primary [...] Unavailable Friend, Dr. Daniel Attending Provider [phone] Kor, Dr. Sarai Ortega Attending Provider [phone] Erika Godwin Attending Provider Unavailable Dr. Eyal Franklin Attending Provider Dr. Julian Jang Attending Provider Dr. Jr Thomas Emergency Provider [phone] Dr. Erika Landa Admit Provider Unavailabl e Landa, Dr. Gayle Other Provider Unavailabl e Dr. Anthony Sosa Attending Provider Dr. Anthony Sosa Other Provider TALYA NICHOLS DO Primary Care Physician [phone] Dr. Erika Landa Referring Provider Unavail [facility] Dr. Talya Nichols Referring Provider [...] Other Provider Dr. Jr Thomas Emergency Provider [phone] Dr. Michelle Washburn Admit Provider Dr. Michelle [...] Care Unavailable KHURRAM ERICKSON MD Attending Unavailable MADGALENA DO, TALYA Primary Care Unavailable ATUL FERGUSON, [...] DO, TALYA Primary Care Unavailable JUAN MIGUEL COAGULATING DRYING SUPERVISOR - BOILER HOUSE OPERATOR, MELONIE Galvan Attending U roland MAGDALENA DO, TALYA Primary Care Unavailable ANNY DA SILVA MD Attending Unavailable MAGDALENA DO, TALYA Primary Care Unavailable MAGDALENA DO, TALYA Primary Care Unavailable GINNY CARRILLO, KIRSTY Allan Attending Unavailable ADOLFO CARRILLO FACP, RONAL Louis Consulting Unavail able AHMET CLARK MD Consulting Unavailable MAGDALENA DO, TALYA Primary Care Unavailable ATUL COAGULATING DRYING SUPERVISOR-BOILER HOUSE OPERATOR, DAMARIS Attending Unavai aydeele MAGDALENA DO, [...] MAGDALENA DO, TALYA Primary Care Unavailable KAPPER COAGULATING DRYING SUPERVISOR-BOILER HOUSE OPERATOR, DELIA M Admitting Unavaila ble LI COAGULATING DRYING SUPERVISOR-BOILER HOUSE OPERATOR, DELIA M Attending Unavaila anjelica MATA [...] Provider Edvin CARRILLO, Dr. Rodriguez Other Provider [phone] Quinton CARRILLO, Dr. Sarai Ortega Attending [...] Dr. Tracy Herrera Other Provider [phone] Mayr CARRILLO, Dr. Hendrickson Primary Care Provider [phone] Attending Unavailable Edvin, Jennifer Consulting Unavailable Edvin, Jennifre Admitting Unavailable Hernandez, Yuridia Primary Care Unavailable [...] of hand (finding), Numbness of finger (finding) [facility] Comment on above: to hand & fingers Opioid Agonists (1 source) Codeine; Translations: [codeine] Drug Allergy Stomach problem (finding) [facility] (20 sources) aliskiren / valsartan; Translations: [aliskiren-valsa rtan] Drug Allergy Numbness of hand (finding), Numbness of finger (finding) [facility] Comment on above: to hand & fingers (20 sources) Codeine; Translations: [codeine] Drug Allergy 2 Stomach problem (finding) [facility] (4 sources) aliskiren Drug Allergy 4 Other [facility] Comment on above: NUMBESS IN FINGERS (4 sources) valsartan Drug Allergy 4 [facility] Comment on above: NUMBESS IN FINGERS (1 source) aliskiren Drug Allergy 5 [facility] (1 source) Codeine Drug Allergy 5 [facility] (1 source) valsartan Drug Allergy 5 [facility] Medications Current Medications Medication Drug [...] WHEEZING, # 360 mL, 0 Refill(s), Pharmacy: [facility], 165.1, cm, 06/08/23 22:18:00 EDT, Height, kg, 06/08/23 22:18:00 EDT, Dosing Weight Start Date: 06/11/23 Stop Date: 07/11/23 Status: Ordered Start: 01-15-2020 albuterol-ipra tropium 2.5 mg-0.5 mg/3 mL inhalation solution Dose = 3 mL, Nebulized, QID, 1 EA = 1 box. use 1 ampule via nebulizer every 6 hours as needed for shortness of breath, # 1 EA, 2 Refill(s), Pharmacy: [facility], COPD (chronic obstructive pulmonary [...] Daily, # 90 tab(s), 3 Refill(s), Pharmacy: [facility], Hypercholesterolemia, 162.5, cm, 12/22/20 [...] Refill(s), 06/13/22 17:03:00 EDT, [facility]acy: [facility] #[id number], 165.1, cm, 06/02/22 13:23:00 EDT, Height Start Date: 06/06/22 Stop Date: 06/13/22 Status: Ordered carvedilol 3.125 mg oral tablet (20 sources) alpha-Adrenergic Greta, beta-Adrenergic Greta Start: 05-11-2023 carvedilol 3.125 mg oral tablet Dose : 3.125 mg = 1 tab(s), Oral, BID, # 180 tab(s), 1 Refill(s), Pharmacy: [facility], 165, cm, 05/11/23 13:05:00 EST, [...] BID, # 180 tab(s), 1 Refill(s), Pharmacy: [facility], NSTEMI (non-ST elevated myocardial [...] 30 tab(s), 5 Refill(s), [facility]acy: [facility] #[id number], Heart failure with preserved ejection fraction CKD [...] food., # 180 tab(s), 3 Refill(s), Pharmacy: [facility], Thrombocytopenia Anemia in CKD (chronic [...] 1 EA, 5 Refill(s), [facility]acy: [facility] #[id number], COPD with acute exacerbation, 161.5, cm, 11/10/22 [...] Daily, # 30 tab(s), 0 Refill(s), Pharmacy: [facility], 165.1, cm, 06/08/23 22:18:00 EDT, [...] frequency, # 90 tab(s), 1 Refill(s), Pharmacy: [facility] #[id number], Heart failure with preserved ejection fraction Dyspnea [...] 0 Refill(s), 11/09/22 2:00:00 PM EDT, Pharmacy: [facility] #[id number], Chest congestion COPD with acute exacerbation, 161.5, [...] prescribed, # 30 tab(s), 0 Refill(s), Pharmacy: [facility] #[id number], COPD (chronic obstructive pulmonary disease) Heart failure [...] QID, # 120 EA, 5 Refill(s), Pharmacy: [facility], COPD with acute exacerbation Chronic [...] well, # 140 gram(s), 1 Refill(s), Pharmacy: [facility], Cream, 160, cm, 03/21/23 12:46:00 [...] 90 tab(s), 1 Refill(s), [facility]acy: [facility] #[id number], Hypothyroidism, 160, cm, 04/19/22 13:15:00 EST, Height, kg, 04/19/22 13:09:00 EST, Dosing Weight Start Date: 04/19/22 Stop Date: 10/16/22 Status: Ordered Start: 05-02-2021 take 1 tablet by [facility] once daily Liothyronine 25 mcg tablet Active 25 ug PO DAILY May 02, 2021 1:00am Start: 12-22-2020 End: 06-20-2021 liothyronine 25 mcg oral tab let Dose : 25 mcg = 1 tab(s), Oral, qDay, # 90 tab(s), 1 Refill(s), Pharmacy: [facility], Hypothyroidism, 162.5, cm, 12/22/20 [...] qDayM, # 30 tab(s), 0 Refill(s), Pharmacy: [facility], 165.1, cm, 06/08/23 22:18:00 EDT, [...] Date: 06/10/23 Stop Date: 06/10/23 Status: Completed [place]-3 Fatty Acids-Vitamin E (20 sources) Start: 05-02-2021 take 2 capsules by mouth twice daily [place]-3 Fatty Acids-Vitamin E Active 2 CAP PO TWICE A DAY May 02, 2021 12:00am Start: 05-02-2021 take 2 capsules by m outh twice daily [place]-3 Fatty Acids-Vitamin E Active 2 CAP PO [...] # 30 cap(s), 5 Refill(s), KESHA, Pharmacy: [facility], COPD without exacerbation COPD with acute exacerbation, 165.1, cm, 06/08/23 22:18:00 EDT, Height, kg, 06/08/23 22:18:00 EDT, Dosing Weight Start Date: 06/11/23 Stop Date: 12/08/23 Status: Ordered Start: 11-23-2022 End: 12-23-2022 take 2 puff(s) by inhalation once daily Spiriva Respimat 60 ACT 2.5 mcg/inh inhalation aerosol 2 puff(s), Inhalation, qDay, # 1 EA, 0 Refill(s), Pharmacy: [facility] #[id number], COPD (chronic obstructive pulmonary disease) Oxygen dependent, [...] patient cough., # 30 cap(s), 5 Refill(s), EKSHA, Pharmacy: [facility] #[id number], COPD (chronic obstructive pulmonary disease) COPD without exacerbation, 161.2, cm, 12/14/22 13:07:00 EDT, Height, kg, 12/14/22 13:07:00 EDT, Dosing Weight Start Date: 12/19/22 Stop Date: 06/17/23 Status: Ordered Start: 04-19-2022 End: 10-16-2022 Spiriva HandiHaler 18 mcg inhalation capsule Dose : 18 mcg = 1 cap(s), Inhalation, qDay, use two inhalations of one capsule for each dose, # 30 cap(s), 5 Refill(s), Pharmacy: [facility] #[id number], COPD (chronic obstructive pulmonary disease) COPD without exacerbation, 160, cm, 04/19/22 13:15:00 EST... Start Date: 04/19/22 Stop Date: 10/16/22 Status: Ordered Start: 09-27-2021 End: 04-18-2022 Spiriva HandiHaler 18 mcg inhalation capsule Dose : 18 mcg = 1 cap(s), Inhalation, qDay, use two inhalations of one capsule for each dose, # 30 cap(s), 1 Refill(s), Pharmacy: [facility], COPD (chronic obstructive pulmonary disease) COPD without exacerbation, 161, cm, 01/17/22 13:27:... Start Date: 02/17/22 Stop Date: 04/18/22 Status: Ordered Start: 05-02-2021 take 1 capsule by in halation once daily Tiotropium [place] (Spiriva With Handihaler) 18 mcg capsule, w/inhalation device Active 18 MCG INHALATION DAILY May 02, 2021 1:00am Start: 03-30-2021 Spiriva HandiH aler 18 mcg inhalation capsule See Instructions, 1 cap(s) use two inhalations of one capsule for each dose, # 30 cap(s), 5 Refill(s), Pharmacy: [facility], COPD (chronic obstructive pulmonary disease), 161.3, cm, 03/30/21 13:16:00 EST, Height, kg, 03/30/21 13:16:00 EST,... Start Date: 03/30/21 Status: Ordered Tiotropium [place] (Spiriva With Handihaler) 18 mcg capsule, w/inhalation device (17 sources) Start: 05-02-2021 Tiotropium Bro mide (Spiriva With Handihaler) 18 mcg capsule, w/inhalation device Active 18 ug INHALATION DAILY May 02, 2021 1:00am Start: 05-02-2021 take 1 capsule by in halation once daily Tiotropium [place] (Spiriva With Handihaler) 18 mcg capsule, w/inhalation device Active 18 MCG INHALATION DAILY May 02, 2021 12:00am Start: 05-02-2021 take 1 capsule by in halation once daily Tiotropium [place] (Spiriva With Handihaler) 18 mcg capsule, w/inhalation [...] Sunday, # 135 tab(s), 1 Refill(s), Pharmacy: [facility], (HFpEF) heart failure with preserved [...] dose, # 90 tab(s), 1 Refill(s), Pharmacy: [facility], Acute on chronic systolic CHF (congestive heart failure), 165, cm, 05/29/23 9:47:00 EDT, Height, kg, 05/29/23 9:47:00 EDT, Dosing Weight Start Date: 05/29/23 Status: Ordered Start: 05-11-2023 torsemide 5 mg oral tablet Dose : 5 mg = 1 tab(s), Oral, Daily, # 30 tab(s), 5 Refill(s), Pharmacy: [facility], Acute on chronic systolic CHF (congestive heart failure), 165, cm, 05/11/23 13:05:00 EST, Height, kg, 05/11/23 12:58:00 EST, Dosing Weight Start Date: 05/11/23 Status: Ordered Start: 05-08-2023 torsemide 5 mg oral tablet Dose : 5 mg = 1 tab(s), Oral, Daily, # 30 tab(s), 0 Refill(s), [facility]acy: [facility] #[id number], 165.1, cm, 05/07/23 14:29:00 EST, Height, kg, [...] qDay, # 90 tab(s), 1 Refill(s), Pharmacy: [facility], HTN (hypertension), 161, cm, [...] Daily, # 30 tab(s), 5 Refill(s), Pharmacy: [facility], HTN (hypertension), 162.4, cm, [...] qDay, # 90 tab(s), 3 Refill(s), Pharmacy: [facility], [facility] Anemia in CKD (chronic kidney disease), [...] Refill(s) Start Date: 01/03/22 Status: Ordered Vitamins A,C,I-Uykx-Mjujiv (Preservision Areds) 14,320-226-200 grri-kh-vyyw Capsule (20 sources) Start: 12-13-2021 Vitamins A,C,E -Zinc-Copper (Preservision Areds) 14,320-226-200 shrg-oq-vqdd Capsule Active 1 NMA PO TWICE A DAY December 13, 2021 12:00am Start: 12-13-2021 take 1 capsule by [facility] twice daily Vitamins A,C,C-Flff-Hkoukf (Preservision Areds) 14,320-226-200 evcq-yp-swru Capsule Active 1 CAP PO TWICE A DAY December 12, 2021 11:00pm Start: 12-13-2021 take 1 capsule by [facility] twice daily Vitamins A,C,Z-Dctt-Kugpat (Preservision Areds) 14,320226-200 xotf-qb-ckja Capsule Active 1 CAP PO TWICE A [...] 9:25pm Start: 03-22-2022 take 1 tablet by [facility] once daily Aspirin Low Dose 81 [...] daily, # 45 tab(s), 3 Refill(s), Pharmacy: [facility], HTN (hypertension), 162.5, cm, [...] daily, # 1 EA, 11 Refill(s), Pharmacy: [facility], Controlled diabetes mellitus with [...] daily, # 90 tab(s), 3 Refill(s), Pharmacy: [facility], Diabetes mellitus Diabetes, 162.5, [...] Daily, # 90 tab(s), 3 Refill(s), Pharmacy: [facility], HTN (hypertension), 162.5, cm, [...] 90 tab(s), 1 Refill(s), [facility]acy: [facility] #[id number], 161.5, cm, 02/09/23 14:13:00 EST, Height, kg, [...] change, # 180 tab(s), 1 Refill(s), Pharmacy: [facility], Type 2 diabetes mellitus with hemoglobin A1c goal of less than 7.5% Chronic kidney disease (CKD), 161, cm, 01/17/22 13:27:00 EST, He... Start Date: 01/17/22 Status: Ordered Start: 10-05-2021 metFORMIN 500 mg oral tablet (IR) Dose : 500 mg = 1 tab(s), Oral, BID, Note dosing change, # 180 tab(s), 0 Refill(s), Pharmacy: [facility], Type 2 diabetes mellitus [...] BID, # 180 tab(s), 3 Refill(s), Pharmacy: [facility], DM (diabetes mellitus) Diabetes mellitus, 162.5, cm, 12/22/20 8:17:00 EDT, Height, kg, 12/22/20 8:17:00 EDT, Dosing Weight Start Date: 12/22/20 Stop Date: 12/17/21 Status: Ordered [facility] Medication (20 sources) Start: 04-25-2022 [facility] Medicatio n Oxygen 1-3 L/M via NC, 0 Refill(s), 86.3 Start Date: 04/25/22 Status: Ordered [place]-3 Fatty Acids-Vitamin E 1,000 mg Capsule (3 sources) Start: 05-02-2021 End: 12-10-2023 [place]-3 Fatty Acids-Vitamin E 1,000 mg Capsule Discontinued [...] tab(s), 0 Refill(s), [facility]: [facility] #[id number], 165.1, cm, 05/07/23 14:29:00 EST, Height, kg, [...] 120 tab(s), 0 Refill(s), [facility]: [facility] #[id number], GI bleed, 161.5, cm, 02/23/23 11:48:00 EST, Height, kg, 02/23/23 11:38:00 EST, Dosing Weight Start Date: 02/23/23 Status: Ordered Start: 11-23-2022 End: 01-22-2023 sucralfate 1 g oral tablet D ose : 1 gram(s) = 1 tab(s), Oral, QID, # 120 tab(s), 0 Refill(s), [facility]acy: [facility] #[id number], GI bleed, 160.5, cm, 01/19/23 11:35:00 EST, Height, kg, 01/19/23 11:35:00 EST, Dosing Weight Start Date: 01/19/23 Status: Ordered Start: 11-18-2022 End: 03-23-2023 take 1 tablet by mouth every six hours Sucralfate 1 gram tablet Discontinued 1 g PO EVERY 6 HOURS 120 30 March 09, 2023 1:19pm March 23, 2023 3:49pm Vitamins A,C,K-Qboe-Buyexv (Preservision Areds) 4,296 mcg-226 mg-90 mg capsule (4 sources) Start: 06-27-2023 End: 11-18-2023 Vitamins A,C,U-Nxxz-Vcamyw (Preservision Areds) 4,296 mcg-226 mg-90 mg capsule Discontinued 1 NMA PO TWICE A DAY June 27, 2023 12:00am November 18, 2023 2:18pm Start: 06-27-2023 take 1 capsule by [facility] twice daily Vitamins A,C,R-Zdfx-Ajzdoh (Preservision Areds) 4,296 mcg-226 mg-90 mg capsule [...] Coronary atherosclerosis; Translations: [Atherosclerotic heart disease of [place] coronary artery without angina pectoris] Chronic Deficiency [...] Respiratory failure; insufficiency; arrest (adult) (20 sources) Ebpqr-td-mtejypt respiratory failure; Translations: [Acute and chronic respiratory [...] 1: Proximal - Moderate calcification, Proximal - [place] with 50 % Stenosis; CIRCUMFLEX ARTERY: [...] 08-01-2024 Anion gap [Moles/Vol] 12 mmol/L 07-24 [facility] BUN/creatinine ratioOrdered By: Manuela Washburn on 08-01-2024 Urea nitrogen/Creatinine [Mass ratio] 27.6 mg/mg High 12-29 [facility] Carbon dioxide, total [Moles /volume] in Central venous bloodOrdered By: Manuela Washburn on 08-01-2024 CO2 [Moles/Vol] 31.1 mmol/L 21.0-32.0 [facility] Chloride assayOrdered By: Nadege Washburn on 08-01-2024 Chloride [Moles/Vol] 101 mmol/L 98-108 [facility] Glomerular filtration rate ( GFR) estimation/1.73 sq m using serum, plasma, or whole bOrdered By: Manuela Washburn on 08-01-2024 GFR/1.73 sq M.predicted among non-blacks MDRD (S/P/Bld) [Vol rate/Area] 31 mL/min/{1.73_m2} Low >60 [facility] Comment on above: mL/min/1.73m2 CKD-EP I Creatinine Equation (2020) Potassium measurement (mass/ volume)Ordered By: Manuela Washburn on 08-01-2024 Potassium (Unsp spec) [Mass/Vol] 3.7 mmol/L 3.3-5.1 [facility] Renal Profileon 08-01-2024 Albumin [Mass/Vol] 3.9 g/dL Normal 3.4-4.8 [facility] Comment on above: Performed By: #### L 500.3600 ####[facility] [address] [place], [address] BUN/CRE 27.6 RATIO High 10-20 [facility] Comment on above: Performed By: #### L 500.3600 ####[facility] [address] [place], [address] Calcium [Mass/Vol] 9.8 mg/dL Normal 7.6-11.0 [facility] Comment on above: Performed By: #### L 500.3600 ####[facility] [address] [place], [address] Chloride [Moles/Vol] 101 mmol/L Normal 98-108 [facility] Comment on above: Performed By: #### L 500.3600 ####[facility] [address] [place], [address] CO2 [Moles/Vol] 31.1 mmol/L Normal 21.0-32.0 [facility] Comment on above: Performed By: #### L 500.3600 ####[facility] [address] [place], [address] Creatinine [Mass/Vol] 2.08 mg/dL High 0.70-1.20 [facility] Comment on above: Performed By: #### L 500.3600 ####[facility] [address] [place], [address] GAP 12 Normal 5-15 [facility] Comment on above: Performed By: #### L 500.3600 ####[facility] [address] [place], [address] GFR/1.73 sq M.predicted among non-blacks MDRD (S/P/Bld) [Vol rate/Area] 31 mL/min/{1.73_m2} Low >60 [facility] Comment on above: Result Comment: mL/m in/1.73m2 CKD-EPI Creatinine Equation (2020) Performed By: #### L 500.3600 ####[facility] [address] [place], [address] Glucose [Mass/Vol] 162 mg/dL High 70-99 [facility] Comment on above: Performed By: #### L 500.3600 ####[facility] [address] [place], [address] Phosphate [Mass/Vol] 3.3 mg/dL Normal 2.7-4.5 [facility] Comment on above: Performed By: #### L 500.3600 ####[facility] [address] [place], [address] Potassium [Moles/Vol] 3.7 mmol/L Normal 3.3-5.1 [facility] Comment on above: Performed By: #### L 500.3600 ####[facility] [address] [place], [address] Sodium [Moles/Vol] 145 mmol/L Normal 133-145 [facility] Comment on above: Performed By: #### L 500.3600 ####[facility] [address] [place], [address] Urea nitrogen [Mass/Vol] 58 mg/dL High 4-19 [facility] Comment on above: Performed By: #### L 500.3600 ####[facility] [address] [place], [address] Serum creatinine measurement (mass/volume)Ordered By: Manuela Washburn on 08-01-2024 Creatinine [Mass/Vol] 2.08 mg/dL High 0.70-1.20 [facility] Serum glucose measurement (m ass/volume)Ordered By: Manuela Washburn on 08-01-2024 Glucose [Mass/Vol] 162 mg/dL High 70-99 [facility] Serum or plasma albumin elmira urement (mass/volume)Ordered By: Manuela Washburn on 08-01-2024 Albumin [Mass/Vol] 3.9 g/dL 3.4-4.8 [facility] Serum or plasma calcium elmira urement (mass/volume)Ordered By: Manuela Washburn on 08-01-2024 Calcium [Mass/Vol] 9.8 mg/dL 7.6-11.0 [facility] Serum or plasma urea nitroge n measurement (mass/volume)Ordered By: Manuela Washburn on 08-01-2024 Urea nitrogen [Mass/Vol] 58 mg/dL High 4-19 [facility] Sodium levelOrdered By: Carline Washburn on 08-01-2024 Sodium [Moles/Vol] 145 mmol/L 133-145 [facility] Gastroenterology Visit Repor ton 07-14-2024 Gastroenterology Visit Report Normal [facility] Anion gap in Serum or Plasma Ordered By: Manuela Washburn on 07-04-2024 Anion gap [Moles/Vol] 14 mmol/L 5-15 [facility] BUN/creatinine ratioOrdered By: Manuela Washburn on 07-04-2024 Urea nitrogen/Creatinine [Mass ratio] 36.2 mg/mg High 10-20 [facility] Basic Metabolic Profile (BMP )on 07-04-2024 BUN/CRE 36.2 RATIO High 12-29 [facility] Comment on above: Performed By: #### L 500.2500, L509.1000 ####[facility] [address] [place], [address] Calcium [Mass/Vol] 8.9 mg/dL Normal 7.6-11.0 [facility] Comment on above: Performed By: #### L 500.2500, L509.1000 ####[facility] [address] [place], [address] Chloride [Moles/Vol] 108 mmol/L Normal 98-108 [facility] Comment on above: Performed By: #### L 500.2500, L509.1000 ####[facility] [address] [place], [address] CO2 [Moles/Vol] 23.7 mmol/L Normal 21.0-32.0 [facility] Comment on above: Performed By: #### L 500.2500, L509.1000 ####[facility] [address] [place], [address] Creatinine [Mass/Vol] 2.93 mg/dL High 0.70-1.20 [facility] Comment on above: Performed By: #### L 500.2500, L509.1000 ####[facility] [address] [place], [address] GAP 14 Normal 5-15 [facility] Comment on above: Performed By: #### L 500.2500, L509.1000 ####[facility] [address] [place], [address] GFR/1.73 sq M.predicted among non-blacks MDRD (S/P/Bld) [Vol rate/Area] 20 mL/min/{1.73_m2} Low >60 [facility] Comment on above: Result Comment: mL/m in/1.73m2 CKD-EPI Creatinine Equation (2020) Performed By: #### L 500.2500, L509.1000 ####[facility] [address] [place], [address] Glucose [Mass/Vol] 157 mg/dL High 70-99 [facility] Comment on above: Performed By: #### L 500.2500, L509.1000 ####[facility] [address] [place], [address] Potassium [Moles/Vol] 4.1 mmol/L Normal 3.3-5.1 [facility] Comment on above: Performed By: #### L 500.2500, L509.1000 ####[facility] [address] [place], [address] Sodium [Moles/Vol] 145 mmol/L Normal 133-145 [facility] Comment on above: Performed By: #### L 500.2500, L509.1000 ####[facility] [address] [place], [address] Urea nitrogen [Mass/Vol] 106 mg/dL Invalid Interpretation Code 06-28 [facility] Comment on above: Result Comment: Crit ical Result(s) Called at: 1900 by: SCOTT BAILEY TO ??Results read back by same. Performed By: #### L 500.2500, L509.1000 ####[facility] [address] [place], [address] Carbon dioxide, total [Moles /volume] in Central venous bloodOrdered By: Manuela Washburn on 07-04-2024 CO2 [Moles/Vol] 23.7 mmol/L 21.0-32.0 [facility] Chloride assayOrdered By: Nadege Washburn on 07-04-2024 Chloride [Moles/Vol] 108 mmol/L 98-108 [facility] Glomerular filtration rate ( GFR) estimation/1.73 sq m using serum, plasma, or whole bOrdered By: Manuela Washburn on 07-04-2024 GFR/1.73 sq M.predicted among non-blacks MDRD (S/P/Bld) [Vol rate/Area] 20 mL/min/{1.73_m2} Low >60 [facility] Comment on above: mL/min/1.73m2 CKD-EP I Creatinine Equation (2020) PTHINon 07-04-2024 PTH 154 pg/mL High 11-61 [facility] Comment on above: Performed By: #### L 500.2500, L509.1000 ####[facility] [address] [place], [address] Potassium measurement (mass/ volume)Ordered By: Manuela Washburn on 07-04-2024 Potassium (Unsp spec) [Mass/Vol] 4.1 mmol/L 3.3-5.1 [facility] Serum creatinine measurement (mass/volume)Ordered By: Manuela Washburn on 07-04-2024 Creatinine [Mass/Vol] 2.93 mg/dL High 0.70-1.20 [facility] Serum glucose measurement (m ass/volume)Ordered By: Manuela Washburn on 07-04-2024 Glucose [Mass/Vol] 157 mg/dL High 70-99 [facility] Serum or plasma calcium elmira urement (mass/volume)Ordered By: Manuela Washburn on 07-04-2024 Calcium [Mass/Vol] 8.9 mg/dL 7.6-11.0 [facility] Serum or plasma urea nitroge n measurement (mass/volume)Ordered By: Manuela Washburn on 07-04-2024 Urea nitrogen [Mass/Vol] 106 mg/dL High 06-28 [facility] Comment on above: Critical Result(s) C alled at: 1900 by: SCOTT BAILEY TO DR. AVITIA Results read back by same. Sodium levelOrdered By: Carline Washburn on 07-04-2024 Sodium [Moles/Vol] 145 mmol/L 133-145 [facility] Basic Metabolic Profile (BMP )on 07-02-2024 BUN Normal 06-28 [facility] Comment on above: Result Comment: Canc elled via OM: Order cancelled - Patient discharged Performed By: #### L 500.2500, L100.0100 ####[facility] [address] [place], [address] BUN/CRE Normal 12-29 [facility] Comment on above: Result Comment: Canc elled via OM: Order cancelled - Patient discharged Performed By: #### L 500.2500, L100.0100 ####[facility] [address] [place], [address] Calcium Normal 7.6-11.0 [facility] Comment on above: Result Comment: Canc elled via OM: Order cancelled - Patient discharged Performed By: #### L 500.2500, L100.0100 ####[facility] [address] [place], [address] CL Normal 98-108 [facility] Comment on above: Result Comment: Canc elled via OM: Order cancelled - Patient discharged Performed By: #### L 500.2500, L100.0100 ####[facility] [address] [place], [address] CO2 Normal 21.0-32.0 [facility] Comment on above: Result Comment: Canc elled via OM: Order cancelled - Patient discharged Performed By: #### L 500.2500, L100.0100 ####[facility] [address] [place], [address] CREAT,SERUM Normal 0.70-1.20 [facility] Comment on above: Result Comment: Canc elled via OM: Order cancelled - Patient discharged Performed By: #### L 500.2500, L100.0100 ####[facility] [address] [place], [address] eGFR Normal >60 [facility] Comment on above: Result Comment: Canc elled via OM: Order cancelled - Patient discharged Performed By: #### L 500.2500, L100.0100 ####[facility] [address] [place], [address] GAP Normal 5-15 [facility] Comment on above: Result Comment: Canc elled via OM: Order cancelled - Patient discharged Performed By: #### L 500.2500, L100.0100 ####[facility] [address] [place], [address] GLU Normal 70-99 [facility] Comment on above: Result Comment: Canc elled via OM: Order cancelled - Patient discharged Performed By: #### L 500.2500, L100.0100 ####[facility] [address] [place], [address] Potassium Normal 3.3-5.1 [facility] Comment on above: Result Comment: Canc elled via OM: Order cancelled - Patient discharged Performed By: #### L 500.2500, L100.0100 ####[facility] [address] [place], [address] Basic Metabolic Profile (BMP) Normal 133-145 [facility] Comment on above: Result Comment: Canc elled via OM: Order cancelled - Patient discharged Performed By: #### L 500.2500, L100.0100 ####[facility] [address] [place], [address] CBC W/Diff, Automatedon 04-2 Absolute Neut Normal 2.0-7.7 [facility] Comment on above: Result Comment: Canc elled via OM: Order cancelled - Patient discharged Performed By: #### L 500.2500, L100.0100 ####[facility] [address] [place], [address] HCT Normal 40-54 [facility] Comment on above: Result Comment: Canc elled via OM: Order cancelled - Patient discharged Performed By: #### L 500.2500, L100.0100 ####[facility] [address] [place], [address] HGB Normal 13.0-16.5 [facility] Comment on above: Result Comment: Canc elled via OM: Order cancelled - Patient discharged Performed By: #### L 500.2500, L100.0100 ####[facility] [address] [place], [address] MCH Normal 27.0-32.0 [facility] Comment on above: Result Comment: Canc elled via OM: Order cancelled - Patient discharged Performed By: #### L 500.2500, L100.0100 ####[facility] [address], [address] MCHC Normal 32-36 [facility] Comment on above: Result Comment: Canc elled via OM: Order cancelled - Patient discharged Performed By: #### L 500.2500, L100.0100 ####[facility] [address] [place], [address] MCV Normal 80-94 [facility] Comment on above: Result Comment: Canc elled via OM: Order cancelled - Patient discharged Performed By: #### L 500.2500, L100.0100 ####[facility] [address] [place], [address] NEUT% Normal 47-70 [facility] Comment on above: Result Comment: Canc elled via OM: Order cancelled - Patient discharged Performed By: #### L 500.2500, L100.0100 ####[facility] [address] [place], [address] PLT Normal 150-450 [facility] Comment on above: Result Comment: Canc elled via OM: Order cancelled - Patient discharged Performed By: #### L 500.2500, L100.0100 ####[facility] [address] [place], [address] RBC Normal 4.6-6.2 [facility] Comment on above: Result Comment: Canc elled via OM: Order cancelled - Patient discharged Performed By: #### L 500.2500, L100.0100 ####[facility] [address] [place], [address] RDW CV Normal 11.6-14.6 [facility] Comment on above: Result Comment: Canc elled via OM: Order cancelled - Patient discharged Performed By: #### L 500.2500, L100.0100 ####[facility] [address] [place], [address] RDW SD Normal 35.1-43.9 [facility] Comment on above: Result Comment: Canc elled via OM: Order cancelled - Patient discharged Performed By: #### L 500.2500, L100.0100 ####[facility] [address] [place], [address] WBC Normal 4.4-11.0 [facility] Comment on above: Result Comment: Canc elled via OM: Order cancelled - Patient discharged Performed By: #### L 500.2500, L100.0100 ####[facility] [address] [place], [address] Basic Metabolic Profile (BMP )on 07-01-2024 BUN Normal 4-19 [facility] Comment on above: Result Comment: Canc elled via OM: Order cancelled - Patient discharged Performed By: #### L 500.2500, L100.0100 ####[facility] [address] [place], [address] BUN/CRE Normal 10-20 [facility] Comment on above: Result Comment: Canc elled via OM: Order cancelled - Patient discharged Performed By: #### L 500.2500, L100.0100 ####[facility] [address] [place], [address] Calcium Normal 7.6-11.0 [facility] Comment on above: Result Comment: Canc elled via OM: Order cancelled - Patient discharged Performed By: #### L 500.2500, L100.0100 ####[facility] [address] [place], [address] CL Normal 98-108 [facility] Comment on above: Result Comment: Canc elled via OM: Order cancelled - Patient discharged Performed By: #### L 500.2500, L100.0100 ####[facility] [address] [place], [address] CO2 Normal 21.0-32.0 [facility] Comment on above: Result Comment: Canc elled via OM: Order cancelled - Patient discharged Performed By: #### L 500.2500, L100.0100 ####[facility] [address] [place], [address] CREAT,SERUM Normal 0.70-1.20 [facility] Comment on above: Result Comment: Canc elled via OM: Order cancelled - Patient discharged Performed By: #### L 500.2500, L100.0100 ####[facility] [address] [place], [address] eGFR Normal >60 [facility] Comment on above: Result Comment: Canc elled via OM: Order cancelled - Patient discharged Performed By: #### L 500.2500, L100.0100 ####[facility] [address] [place], [address] GAP Normal 5-15 [facility] Comment on above: Result Comment: Canc elled via OM: Order cancelled - Patient discharged Performed By: #### L 500.2500, L100.0100 ####[facility] [address] [place], [address] GLU Normal 70-99 [facility] Comment on above: Result Comment: Canc elled via OM: Order cancelled - Patient discharged Performed By: #### L 500.2500, L100.0100 ####[facility] [address] [place], [address] Potassium Normal 3.3-5.1 [facility] Comment on above: Result Comment: Canc elled via OM: Order cancelled - Patient discharged Performed By: #### L 500.2500, L100.0100 ####[facility] [address] [place], [address] Basic Metabolic Profile (BMP) Normal 133-145 [facility] Comment on above: Result Comment: Canc elled via OM: Order cancelled - Patient discharged Performed By: #### L 500.2500, L100.0100 ####[facility] [address] [place], [address] CBC W/Diff, Automatedon 04-2 Absolute Neut Normal 2.0-7.7 [facility] Comment on above: Result Comment: Canc elled via OM: Order cancelled - Patient discharged Performed By: #### L 500.2500, L100.0100 ####[facility] [address] [place], [address] HCT Normal 40-54 [facility] Comment on above: Result Comment: Canc elled via OM: Order cancelled - Patient discharged Performed By: #### L 500.2500, L100.0100 ####[facility] [address] [place], [address] HGB Normal 13.0-16.5 [facility] Comment on above: Result Comment: Canc elled via OM: Order cancelled - Patient discharged Performed By: #### L 500.2500, L100.0100 ####[facility] [address] [place], [address] MCH Normal 27.0-32.0 [facility] Comment on above: Result Comment: Canc elled via OM: Order cancelled - Patient discharged Performed By: #### L 500.2500, L100.0100 ####[facility] [address], [address] MCHC Normal 32-36 [facility] Comment on above: Result Comment: Canc elled via OM: Order cancelled - Patient discharged Performed By: #### L 500.2500, L100.0100 ####[facility] [address] [place], [address] MCV Normal 80-94 [facility] Comment on above: Result Comment: Canc elled via OM: Order cancelled - Patient discharged Performed By: #### L 500.2500, L100.0100 ####[facility] [address] [place], [address] NEUT% Normal 47-70 [facility] Comment on above: Result Comment: Canc elled via OM: Order cancelled - Patient discharged Performed By: #### L 500.2500, L100.0100 ####[facility] [address] [place], [address] PLT Normal 150-450 [facility] Comment on above: Result Comment: Canc elled via OM: Order cancelled - Patient discharged Performed By: #### L 500.2500, L100.0100 ####[facility] [address] [place], [address] RBC Normal 4.6-6.2 [facility] Comment on above: Result Comment: Canc elled via OM: Order cancelled - Patient discharged Performed By: #### L 500.2500, L100.0100 ####[facility] [address] [place], [address] RDW CV Normal 11.6-14.6 [facility] Comment on above: Result Comment: Canc elled via OM: Order cancelled - Patient discharged Performed By: #### L 500.2500, L100.0100 ####[facility] [address] [place], [address] RDW SD Normal 35.1-43.9 [facility] Comment on above: Result Comment: Canc elled via OM: Order cancelled - Patient discharged Performed By: #### L 500.2500, L100.0100 ####[facility] [address] [place], [address] WBC Normal 4.4-11.0 [facility] Comment on above: Result Comment: Canc elled via OM: Order cancelled - Patient discharged Performed By: #### L 500.2500, L100.0100 ####[facility] [address] [place], [address] Absolute lymphocyte countOrd ered By: Yuridia Hernandez on 06-30-2024 Lymphocytes Auto (Unsp spec) [#/Vol] 2.06 10*3/uL 0.83-4.51 [facility] Absolute neutrophil countOrd ered By: Yuridia Hernandez on 06-30-2024 Neutrophils (Bld) [#/Vol] 11.8 10*3/uL High 2.0-7.7 [facility] Anion gap in Serum or Plasma Ordered By: Yuridia Hernandez on 06-30-2024 Anion gap [Moles/Vol] 16 mmol/L High 5-15 [facility] Automated lymphocyte count a s percentage of total leukocytesOrdered By: Yuridia Hernandez on 06-30-2024 Lymphocytes/100 WBC Auto (Unsp spec) 13.2 % Low 19-41 [facility] BUN/creatinine ratioOrdered By: Yuridia Hernandez on 06-30-2024 Urea nitrogen/Creatinine [Mass ratio] 36.0 mg/mg High 10-20 [facility] Basic Metabolic Profile (BMP )on 06-30-2024 BUN Normal 4-19 [facility] Comment on above: Result Comment: Canc elled via OM: Order cancelled - Patient discharged Performed By: #### L 500.2500, L100.0100 ####[facility] [address] [place], [address] BUN/CRE Normal 10-20 [facility] Comment on above: Result Comment: Canc elled via OM: Order cancelled - Patient discharged Performed By: #### L 500.2500, L100.0100 ####[facility] [address] [place], [address] Calcium Normal 7.6-11.0 [facility] Comment on above: Result Comment: Canc elled via OM: Order cancelled - Patient discharged Performed By: #### L 500.2500, L100.0100 ####[facility] [place] [facility] [address] [place], [address] CL Normal 98-108 [facility] Comment on above: Result Comment: Canc elled via OM: Order cancelled - Patient discharged Performed By: #### L 500.2500, L100.0100 ####[facility] [address] [place], [address] CO2 Normal 21.0-32.0 [facility] Comment on above: Result Comment: Canc elled via OM: Order cancelled - Patient discharged Performed By: #### L 500.2500, L100.0100 ####[facility] [address] [place], [address] CREAT,SERUM Normal 0.70-1.20 [facility] Comment on above: Result Comment: Canc elled via OM: Order cancelled - Patient discharged Performed By: #### L 500.2500, L100.0100 ####[facility] [address] [place], [address] eGFR Normal >60 [facility] Comment on above: Result Comment: Canc elled via OM: Order cancelled - Patient discharged Performed By: #### L 500.2500, L100.0100 ####[facility] [address] [place], [address] GAP Normal 5-15 [facility] Comment on above: Result Comment: Canc elled via OM: Order cancelled - Patient discharged Performed By: #### L 500.2500, L100.0100 ####[facility] [address] [place], [address] GLU Normal 70-99 [facility] Comment on above: Result Comment: Canc elled via OM: Order cancelled - Patient discharged Performed By: #### L 500.2500, L100.0100 ####[facility] [address] [place], [address] Potassium Normal 3.3-5.1 [facility] Comment on above: Result Comment: Canc elled via OM: Order cancelled - Patient discharged Performed By: #### L 500.2500, L100.0100 ####[facility] [address] [place], [address] Basic Metabolic Profile (BMP) Normal 133-145 [facility] Comment on above: Result Comment: Canc elled via OM: Order cancelled - Patient discharged Performed By: #### L 500.2500, L100.0100 ####[facility] [address] [place], [address] Basophil percentageOrdered B y: Yuridia Hernandez on 06-30-2024 Basophils/100 WBC (Bld) 0.1 % 0-1 [facility] Bilirubin, totalOrdered By: Yuridia Hernandez on 06-30-2024 Bilirubin [Mass/Vol] 0.34 mg/dL 0.00-1.30 [facility] CBC W/Diff, Automatedon -04 12-2024 Absolute Lymph 2.06 X10 3/uL Normal 0.83-4.51 [facility] Comment on above: Performed By: #### L 500.4050, L100.0100, L503.7505 ####[facility] [address] [place], [address] Absolute Neut 11.8 X10 3/uL High 2.0-7.7 [facility] Comment on above: Performed By: #### L 500.4050, L100.0100, L503.7505 ####[facility] [address] [place], [address] Basophils/100 WBC (Bld) 0.1 % Normal 0-1 [facility] Comment on above: Performed By: #### L 500.4050, L100.0100, L503.7505 ####[facility] [address] [place], [address] Eosinophils/100 WBC (Bld) 3.4 % Normal 0-5 [facility] Comment on above: Performed By: #### L 500.4050, L100.0100, L503.7505 ####[facility] [address] [place], [address] Erythrocyte distribution width (RBC) [Ratio] 13.2 % Normal 11.6-14.6 [facility] Comment on above: Performed By: #### L 500.4050, L100.0100, L503.7505 ####[facility] [address] [place], [address] Hematocrit (Bld) [Volume fraction] 29.6 % Low 40-54 [facility] Comment on above: Performed By: #### L 500.4050, L100.0100, L503.7505 ####[facility] [address] [place], [address] Hemoglobin (Bld) [Mass/Vol] 10.0 g/dL Low 13.0-16.5 [facility] Comment on above: Performed By: #### L 500.4050, L100.0100, L503.7505 ####[facility] [address] [place], [address] IG% 0.500 Normal 0.0-0.9 [facility] Comment on above: Result Comment: IG% - Immature Granulocytes (promyelocytes, myelocytes andmetamyelocytes) > 1% indicates that a LEFT SHIFT is Present. Performed By: #### L 500.4050, L100.0100, L503.7505 ####[facility] [address] [place], [address] Lymphocytes/100 WBC (Bld) 13.2 % Low 19-41 [facility] Comment on above: Performed By: #### L 500.4050, L100.0100, L503.7505 ####[facility] [address] [place], [address] MCH (RBC) [Entitic mass] 31.3 pg Normal 27.0-32.0 [facility] Comment on above: Performed By: #### L 500.4050, L100.0100, L503.7505 ####[facility] [address] [place], [address] MCHC (RBC) [Mass/Vol] 33.8 g/dL Normal 32-36 [facility] Comment on above: Performed By: #### L 500.4050, L100.0100, L503.7505 ####[facility] [address] [place], [address] MCV (RBC) [Entitic vol] 92.8 fL Normal 80-94 [facility] Comment on above: Performed By: #### L 500.4050, L100.0100, L503.7505 ####[facility] [address] [place], [address] Monocytes/100 WBC (Bld) 7.5 % Normal 0-10 [facility] Comment on above: Performed By: #### L 500.4050, L100.0100, L503.7505 ####[facility] [address] [place], [address] Neutrophils/100 WBC (Bld) 75.3 % High 47-70 [facility] Comment on above: Performed By: #### L 500.4050, L100.0100, L503.7505 ####[facility] [address] [place], [address] Nucleated RBC (Bld) [#/Vol] 0 10*3/uL Normal 0-5 [facility] Comment on above: Performed By: #### L 500.4050, L100.0100, L503.7505 ####[facility] [address] [place], [address] Platelet mean volume (Bld) [Entitic vol] 11.1 fL Normal 6.2-12.0 [facility] Comment on above: Performed By: #### L 500.4050, L100.0100, L503.7505 ####[facility] [address] [place], [address] Platelets (Bld) [#/Vol] 174 10*3/uL Normal 150-450 [facility] Comment on above: Performed By: #### L 500.4050, L100.0100, L503.7505 ####[facility] [address] [place], [address] RBC (Bld) [#/Vol] 3.19 10*6/uL Low 4.6-6.2 [facility] Comment on above: Performed By: #### L 500.4050, L100.0100, L503.7505 ####[facility] [address] [place], [address] RDW SD 44.5 fl High 35.1-43.9 [facility] Comment on above: Performed By: #### L 500.4050, L100.0100, L503.7505 ####[facility] [address] [place], [address] WBC (Bld) [#/Vol] 15.7 10*3/uL High 4.4-11.0 [facility] Comment on above: Performed By: #### L 500.4050, L100.0100, L503.7505 ####[facility] [address] [place], [address] Absolute Neut Normal 2.0-7.7 [facility] Comment on above: Result Comment: Canc elled via OM: Order cancelled - Patient discharged Performed By: #### L 500.2500, L100.0100 ####[facility] [address] [place], [address] HCT Normal 40-54 [facility] Comment on above: Result Comment: Canc elled via OM: Order cancelled - Patient discharged Performed By: #### L 500.2500, L100.0100 ####[facility] [address] [place], [address] HGB Normal 13.0-16.5 [facility] Comment on above: Result Comment: Canc elled via OM: Order cancelled - Patient discharged Performed By: #### L 500.2500, L100.0100 ####[facility] [address] [place], [address] MCH Normal 27.0-32.0 [facility] Comment on above: Result Comment: Canc elled via OM: Order cancelled - Patient discharged Performed By: #### L 500.2500, L100.0100 ####[facility] [address] [place], [address] MCHC Normal 32-36 [facility] Comment on above: Result Comment: Canc elled via OM: Order cancelled - Patient discharged Performed By: #### L 500.2500, L100.0100 ####[facility] [address] [place], [address] MCV Normal 80-94 [facility] Comment on above: Result Comment: Canc elled via OM: Order cancelled - Patient discharged Performed By: #### L 500.2500, L100.0100 ####[facility] [address] [place], [address] NEUT% Normal 47-70 [facility] Comment on above: Result Comment: Canc elled via OM: Order cancelled - Patient discharged Performed By: #### L 500.2500, L100.0100 ####[facility] [address] [place], [address] PLT Normal 150-450 [facility] Comment on above: Result Comment: Canc elled via OM: Order cancelled - Patient discharged Performed By: #### L 500.2500, L100.0100 ####[facility] [address] [place], [address] RBC Normal 4.6-6.2 [facility] Comment on above: Result Comment: Canc elled via OM: Order cancelled - Patient discharged Performed By: #### L 500.2500, L100.0100 ####[facility] [address] [place], [address] RDW CV Normal 11.6-14.6 [facility] Comment on above: Result Comment: Canc elled via OM: Order cancelled - Patient discharged Performed By: #### L 500.2500, L100.0100 ####[facility] [address] [place], [address] RDW SD Normal 35.1-43.9 [facility] Comment on above: Result Comment: Canc elled via OM: Order cancelled - Patient discharged Performed By: #### L 500.2500, L100.0100 ####[facility] [address] [place], [address] WBC Normal 4.4-11.0 [facility] Comment on above: Result Comment: Canc elled via OM: Order cancelled - Patient discharged Performed By: #### L 500.2500, L100.0100 ####[facility] [address] [place], [address] Carbon dioxide, total [Moles /volume] in Central venous bloodOrdered By: Yuridia Hernandez on 06-30-2024 CO2 [Moles/Vol] 22.7 mmol/L 21.0-32.0 [facility] Chest PA and Lateralon 06-30 Chest PA and Lateral Normal [facility] Chloride assayOrdered By: Mike Hernandez on 06-30-2024 Chloride [Moles/Vol] 102 mmol/L 98-108 [facility] Comprehensive Metabolic Prof ilon 06-30-2024 Albumin [Mass/Vol] 3.9 g/dL Normal 3.4-4.8 [facility] Comment on above: Performed By: #### L 500.4050, L100.0100, L503.7505 ####[facility] [address] [place], [address] Albumin/Globulin [Mass ratio] 1.5 {ratio} Normal 0.9-2.4 [facility] Comment on above: Performed By: #### L 500.4050, L100.0100, L503.7505 ####[facility] [address] [place], [address] ALK PHOS 80 U/L Normal 40-129 [facility] Comment on above: Performed By: #### L 500.4050, L100.0100, L503.7505 ####[facility] [address] [place], [address] ALT [Catalytic activity/Vol] 149 U/L High <=46 [facility] Comment on above: Performed By: #### L 500.4050, L100.0100, L503.7505 ####[facility] [address] [place], [address] AST [Catalytic activity/Vol] 61 U/L High <=37 [facility] Comment on above: Performed By: #### L 500.4050, L100.0100, L503.7505 ####[facility] [address] [place], [address] Bilirubin [Mass/Vol] 0.34 mg/dL Normal 0.00-1.30 [facility] Comment on above: Performed By: #### L 500.4050, L100.0100, L503.7505 ####[facility] [address] [place], [address] BUN/CRE 36.0 RATIO High 10-20 [facility] Comment on above: Performed By: #### L 500.4050, L100.0100, L503.7505 ####[facility] [address] [place], [address] Calcium [Mass/Vol] 9.1 mg/dL Normal 7.6-11.0 [facility] Comment on above: Performed By: #### L 500.4050, L100.0100, L503.7505 ####[facility] [address] [place], [address] Chloride [Moles/Vol] 102 mmol/L Normal 98-108 [facility] Comment on above: Performed By: #### L 500.4050, L100.0100, L503.7505 ####[facility] [address] [place], [address] CO2 [Moles/Vol] 22.7 mmol/L Normal 21.0-32.0 [facility] Comment on above: Performed By: #### L 500.4050, L100.0100, L503.7505 ####[facility] [address] [place], [address] Creatinine [Mass/Vol] 3.22 mg/dL High 0.70-1.20 [facility] Comment on above: Performed By: #### L 500.4050, L100.0100, L503.7505 ####[facility] [address] [place], [address] GAP 16 High 5-15 [facility] Comment on above: Performed By: #### L 500.4050, L100.0100, L503.7505 ####[facility] [address] [place], [address] GFR/1.73 sq M.predicted among non-blacks MDRD (S/P/Bld) [Vol rate/Area] 18 mL/min/{1.73_m2} Low >60 [facility] Comment on above: Result Comment: mL/m in/1.73m2 CKD-EPI Creatinine Equation (2020) Performed By: #### L 500.4050, L100.0100, L503.7505 ####[facility] [address] [place], [address] Globulin (S) [Mass/Vol] 2.7 g/dL Normal 2.2-4.2 [facility] Comment on above: Performed By: #### L 500.4050, L100.0100, L503.7505 ####[facility] [address] [place], [address] Glucose [Mass/Vol] 257 mg/dL High 70-99 [facility] Comment on above: Performed By: #### L 500.4050, L100.0100, L503.7505 ####[facility] [address] [place], [address] Potassium [Moles/Vol] 3.6 mmol/L Normal 3.3-5.1 [facility] Comment on above: Performed By: #### L 500.4050, L100.0100, L503.7505 ####[facility] [address] [place], [address] Sodium [Moles/Vol] 141 mmol/L Normal 133-145 [facility] Comment on above: Performed By: #### L 500.4050, L100.0100, L503.7505 ####[facility] [address] [place], [address] T PROT 6.6 g/dL Normal 5.9-8.4 [facility] Comment on above: Performed By: #### L 500.4050, L100.0100, L503.7505 ####[facility] [address] [place], [address] Urea nitrogen [Mass/Vol] 116 mg/dL Invalid Interpretation Code 06-28 [facility] Comment on above: Result Comment: Crit ical Result(s) Called at: 2129 by:??DR.C GARCIA Resultsread back by same. Performed By: #### L 500.4050, L100.0100, L503.7505 ####[facility] [address] [place], [place], [id number] Eosinophil percentageOrdered By: Yuridia Hernandez on 06-30-2024 Eosinophils/100 WBC (Bld) 3.4 % 0-5 [facility] Erythrocyte distribution wid th ratioOrdered By: Yuridia Hernandez on 06-30-2024 Erythrocyte distribution width (RBC) [Ratio] 13.2 % 11.6-14.6 [facility] Erythrocyte distribution wid th standard deviationOrdered By: Yuridia Hernandez on 06-30-2024 Erythrocyte distribution width (RBC) [Ratio] 44.5 fl High 35.1-43.9 [facility] Glomerular filtration rate ( GFR) estimation/1.73 sq m using serum, plasma, or whole bOrdered By: Yuridia Hernandez on 06-30-2024 GFR/1.73 sq M.predicted among non-blacks MDRD (S/P/Bld) [Vol rate/Area] 18 mL/min/{1.73_m2} Low >60 [facility] Comment on above: mL/min/1.73m2 CKD-EP I Creatinine Equation (2020) Hematocrit Auto (Bld) [Volum e fraction]Ordered By: Yuridia Hernandez on 06-30-2024 Hematocrit (Bld) [Volume fraction] 29.6 % Low 40-54 [facility] Hemoglobin measurementOrdere d By: Yuridia Hernandez on 06-30-2024 Hemoglobin (Bld) [Mass/Vol] 10.0 g/dL Low 13.0-16.5 [facility] Immature granulocytes/100 WB C Auto (Bld)Ordered By: Yuridia Hernandez on 06-30-2024 Immature granulocytes/100 WBC (Bld) 0.500 % 0.0-0.9 [facility] Comment on above: IG% - Immature Granu locytes (promyelocytes, myelocytes and metamyelocytes) > 1% indicates that a LEFT SHIFT is Present. L503.7505on 06-30-2024 Natriuretic peptide B (Bld) [Mass/Vol] 3454 pg/mL High <=1800 [facility] Comment on above: Result Comment: Hear t Failure Unlikely: < 300 pg/mLHeart Failure Likely< 50 Years: > 450 pg/mL50-75 Years: > 900 pg/mL>75 Years: > 1800 pg/mL Performed By: #### L 500.4050, L100.0100, L503.7505 ####[facility] [address] [place], [place], [address] Laboratory - Chemistry and C hemistry - challengeOrdered By: Yuridia Hernandez on 06-30-2024 AST [Catalytic activity/Vol] 61 U/L High <38 [facility] MCV (mean corpuscular volume ) determinationOrdered By: Yuridia Hernandez on 06-30-2024 MCV (RBC) [Entitic vol] 92.8 fL 80-94 [facility] Mean corpuscular hemoglobin (MCH) determinationOrdered By: Yuridia Hernandez on 06-30-2024 MCH (RBC) [Entitic mass] 31.3 pg 27.0-32.0 [facility] Mean corpuscular hemoglobin concentration (MCHC) determinationOrdered By: Yuridia Hernandez on 06-30-2024 MCHC (RBC) [Mass/Vol] 33.8 g/dL 32-36 [facility] Mean platelet volume determi nationOrdered By: Yuridia Hernandez on 06-30-2024 Platelet mean volume (Bld) [Entitic vol] 11.1 fL 6.2-12.0 [facility] Monocyte percentageOrdered B y: Yuridia Hernandez on 06-30-2024 Monocytes/100 WBC (Bld) 7.5 % 0-10 [facility] Natriuretic peptide.B prohor chris N-Terminal [Mass/volume] in Serum or PlasmaOrdered By: Yuridia Hernandez on 06-30-2024 Natriuretic peptide.B prohormone N-Terminal [Mass/Vol] 3454 pg/mL High <1800 [facility] Comment on above: Heart Failure Unlike ly: < 300 pg/mLHeart Failure Likely< 50 Years: > 450 pg/mL50-75 Years: > 900 pg/mL>75 Years: > 1800 pg/mL Neutrophil percentageOrdered By: Yuridia Hernandez on 06-30-2024 Neutrophils/100 WBC (Bld) 75.3 % High 47-70 [facility] Nucleated red blood cell per centageOrdered By: Yuridia Hernandez on 06-30-2024 Nucleated RBC/100 WBC (Bld) [Ratio] 0 % 0-5 [facility] Platelet countOrdered By: Mike Hernandez on 06-30-2024 Platelets (Bld) [#/Vol] 174 10*3/uL 150-450 [facility] Potassium measurement (mass/ volume)Ordered By: Yuridia Hernandez on 06-30-2024 Potassium (Unsp spec) [Mass/Vol] 3.6 mmol/L 3.3-5.1 [facility] RBC Auto (Bld) [#/Vol]Ordere d By: Yuridia Hernandez on 06-30-2024 RBC (Bld) [#/Vol] 3.19 10*6/uL Low 4.6-6.2 [facility] Serum creatinine measurement (mass/volume)Ordered By: Yuridia Hernandez on 06-30-2024 Creatinine [Mass/Vol] 3.22 mg/dL High 0.70-1.20 [facility] Serum globulin measurementOr dered By: Yuridia Hernandez on 06-30-2024 Globulin (S) [Mass/Vol] 2.7 g/dL 2.2-4.2 [facility] Serum glucose measurement (m ass/volume)Ordered By: Yuridia Hernandez on 06-30-2024 Glucose [Mass/Vol] 257 mg/dL High 70-99 [facility] Serum or plasma alanine duque otransferase (ALT) measurementOrdered By: Yuridia Hernandez on 06-30-2024 ALT [Catalytic activity/Vol] 149 U/L High <47 [facility] Serum or plasma albumin elmira urement (mass/volume)Ordered By: Yuridia Hernandez on 06-30-2024 Albumin [Mass/Vol] 3.9 g/dL 3.4-4.8 [facility] Serum or plasma albumin/glob ulin mass ratioOrdered By: Yuridia Hernandez on 06-30-2024 Albumin/Globulin [Mass ratio] 1.5 {ratio} 0.9-2.4 [facility] Serum or plasma alkaline lissa sphatase measurementOrdered By: Yuridia Hernandez on 06-30-2024 ALP [Catalytic activity/Vol] 80 U/L 40-129 [facility] Serum or plasma calcium elmira urement (mass/volume)Ordered By: Yuridia Hernandez on 06-30-2024 Calcium [Mass/Vol] 9.1 mg/dL 7.6-11.0 [facility] Serum or plasma urea nitroge n measurement (mass/volume)Ordered By: Yuridia Hernandez on 06-30-2024 Urea nitrogen [Mass/Vol] 116 mg/dL High 06-28 [facility] Comment on above: Critical Result(s) C alled at: 2130 by: DR.C GARCIA Results read back by same. Sodium levelOrdered By: Yuridia Hernandez on 06-30-2024 Sodium [Moles/Vol] 141 mmol/L 133-145 [facility] Total proteinOrdered By: Cecilia Hernandez on 06-30-2024 Protein [Mass/Vol] 6.6 g/dL 5.9-8.4 [facility] White blood cell (WBC) count Ordered By: Yuridia Hernandez on 06-30-2024 WBC (Bld) [#/Vol] 15.7 10*3/uL High 4.4-11.0 [facility] Basic Metabolic Profile (BMP )on 06-29-2024 BUN Normal 06-28 [facility] Comment on above: Result Comment: Canc elled via OM: Order cancelled - Patient discharged Performed By: #### L 500.2500, L100.0100 ####[facility] [address] [place], [address] BUN/CRE Normal 12-29 [facility] Comment on above: Result Comment: Canc elled via OM: Order cancelled - Patient discharged Performed By: #### L 500.2500, L100.0100 ####[facility] [address] [place], [address] Calcium Normal 7.6-11.0 [facility] Comment on above: Result Comment: Canc elled via OM: Order cancelled - Patient discharged Performed By: #### L 500.2500, L100.0100 ####[facility] [address] [place], [address] CL Normal 98-108 [facility] Comment on above: Result Comment: Canc elled via OM: Order cancelled - Patient discharged Performed By: #### L 500.2500, L100.0100 ####[facility] [address] [place], [address] CO2 Normal 21.0-32.0 [facility] Comment on above: Result Comment: Canc elled via OM: Order cancelled - Patient discharged Performed By: #### L 500.2500, L100.0100 ####[facility] [address] [place], [address] CREAT,SERUM Normal 0.70-1.20 [facility] Comment on above: Result Comment: Canc elled via OM: Order cancelled - Patient discharged Performed By: #### L 500.2500, L100.0100 ####[facility] [address] [place], [address] eGFR Normal >60 [facility] Comment on above: Result Comment: Canc elled via OM: Order cancelled - Patient discharged Performed By: #### L 500.2500, L100.0100 ####[facility] [address] [place], [address] GAP Normal 5-15 [facility] Comment on above: Result Comment: Canc elled via OM: Order cancelled - Patient discharged Performed By: #### L 500.2500, L100.0100 ####[facility] [address] [place], [address] GLU Normal 70-99 [facility] Comment on above: Result Comment: Canc elled via OM: Order cancelled - Patient discharged Performed By: #### L 500.2500, L100.0100 ####[facility] [address], [address] Potassium Normal 3.3-5.1 [facility] Comment on above: Result Comment: Canc elled via OM: Order cancelled - Patient discharged Performed By: #### L 500.2500, L100.0100 ####[facility] [address] [place], [address] Basic Metabolic Profile (BMP) Normal 133-145 [facility] Comment on above: Result Comment: Canc elled via OM: Order cancelled - Patient discharged Performed By: #### L 500.2500, L100.0100 ####[facility] [address] [place], [address] CBC W/Diff, Automatedon 04-2 0-2024 Absolute Neut Normal 2.0-7.7 [facility] Comment on above: Result Comment: Canc elled via OM: Order cancelled - Patient discharged Performed By: #### L 500.2500, L100.0100 ####[facility] [address] [place], [address] HCT Normal 40-54 [facility] Comment on above: Result Comment: Canc elled via OM: Order cancelled - Patient discharged Performed By: #### L 500.2500, L100.0100 ####[facility] [address] [place], [address] HGB Normal 13.0-16.5 [facility] Comment on above: Result Comment: Canc elled via OM: Order cancelled - Patient discharged Performed By: #### L 500.2500, L100.0100 ####[facility] [address], [address] MCH Normal 27.0-32.0 [facility] Comment on above: Result Comment: Canc elled via OM: Order cancelled - Patient discharged Performed By: #### L 500.2500, L100.0100 ####[facility] [address] [place], [address] MCHC Normal 32-36 [facility] Comment on above: Result Comment: Canc elled via OM: Order cancelled - Patient discharged Performed By: #### L 500.2500, L100.0100 ####[facility] [address] [place], [address] MCV Normal 80-94 [facility] Comment on above: Result Comment: Canc elled via OM: Order cancelled - Patient discharged Performed By: #### L 500.2500, L100.0100 ####[facility] [address] [place], [address] NEUT% Normal 47-70 [facility] Comment on above: Result Comment: Canc elled via OM: Order cancelled - Patient discharged Performed By: #### L 500.2500, L100.0100 ####[facility] [address] [place], [address] PLT Normal 150-450 [facility] Comment on above: Result Comment: Canc elled via OM: Order cancelled - Patient discharged Performed By: #### L 500.2500, L100.0100 ####[facility] [address] [place], [address] RBC Normal 4.6-6.2 [facility] Comment on above: Result Comment: Canc elled via OM: Order cancelled - Patient discharged Performed By: #### L 500.2500, L100.0100 ####[facility] [address] [place], [address] RDW CV Normal 11.6-14.6 [facility] Comment on above: Result Comment: Canc elled via OM: Order cancelled - Patient discharged Performed By: #### L 500.2500, L100.0100 ####[facility] [address] [place], [address] RDW SD Normal 35.1-43.9 [facility] Comment on above: Result Comment: Canc elled via OM: Order cancelled - Patient discharged Performed By: #### L 500.2500, L100.0100 ####[facility] [address] [place], [address] WBC Normal 4.4-11.0 [facility] Comment on above: Result Comment: Canc elled via OM: Order cancelled - Patient discharged Performed By: #### L 500.2500, L100.0100 ####[facility] [address] [place], [address] Basic Metabolic Profile (BMP )on 06-28-2024 BUN Normal 4-19 [facility] Comment on above: Result Comment: Canc elled via OM: Order cancelled - Patient discharged Performed By: #### L 500.2500, L100.0100 ####[facility] [address] [place], [address] BUN/CRE Normal 10-20 [facility] Comment on above: Result Comment: Canc elled via OM: Order cancelled - Patient discharged Performed By: #### L 500.2500, L100.0100 ####[facility] [address] [place], [address] Calcium Normal 7.6-11.0 [facility] Comment on above: Result Comment: Canc elled via OM: Order cancelled - Patient discharged Performed By: #### L 500.2500, L100.0100 ####[facility] [address] [place], [address] CL Normal 98-108 [facility] Comment on above: Result Comment: Canc elled via OM: Order cancelled - Patient discharged Performed By: #### L 500.2500, L100.0100 ####[facility] [address] [place], [address] CO2 Normal 21.0-32.0 [facility] Comment on above: Result Comment: Canc elled via OM: Order cancelled - Patient discharged Performed By: #### L 500.2500, L100.0100 ####[facility] [address] [place], [address] CREAT,SERUM Normal 0.70-1.20 [facility] Comment on above: Result Comment: Canc elled via OM: Order cancelled - Patient discharged Performed By: #### L 500.2500, L100.0100 ####[facility] [address] [place], [address] eGFR Normal >60 [facility] Comment on above: Result Comment: Canc elled via OM: Order cancelled - Patient discharged Performed By: #### L 500.2500, L100.0100 ####[facility] [address] [place], [address] GAP Normal 5-15 [facility] Comment on above: Result Comment: Canc elled via OM: Order cancelled - Patient discharged Performed By: #### L 500.2500, L100.0100 ####[facility] [address] [place], [address] GLU Normal 70-99 [facility] Comment on above: Result Comment: Canc elled via OM: Order cancelled - Patient discharged Performed By: #### L 500.2500, L100.0100 ####[facility] [address] [place], [address] Potassium Normal 3.3-5.1 [facility] Comment on above: Result Comment: Canc elled via OM: Order cancelled - Patient discharged Performed By: #### L 500.2500, L100.0100 ####[facility] [address] [place], [address] Basic Metabolic Profile (BMP) Normal 133-145 [facility] Comment on above: Result Comment: Canc elled via OM: Order cancelled - Patient discharged Performed By: #### L 500.2500, L100.0100 ####[facility] [address] [place], [address] CBC W/Diff, Automatedon 04-1 Absolute Neut Normal 2.0-7.7 [facility] Comment on above: Result Comment: Canc elled via OM: Order cancelled - Patient discharged Performed By: #### L 500.2500, L100.0100 ####[facility] [address] [place], [address] HCT Normal 40-54 [facility] Comment on above: Result Comment: Canc elled via OM: Order cancelled - Patient discharged Performed By: #### L 500.2500, L100.0100 ####[facility] [address] [place], [address] HGB Normal 13.0-16.5 [facility] Comment on above: Result Comment: Canc elled via OM: Order cancelled - Patient discharged Performed By: #### L 500.2500, L100.0100 ####[facility] [address] [place], [address] MCH Normal 27.0-32.0 [facility] Comment on above: Result Comment: Canc elled via OM: Order cancelled - Patient discharged Performed By: #### L 500.2500, L100.0100 ####[facility] [address] [place], [address] MCHC Normal 32-36 [facility] Comment on above: Result Comment: Canc elled via OM: Order cancelled - Patient discharged Performed By: #### L 500.2500, L100.0100 ####[facility] [address] [place], [address] MCV Normal 80-94 [facility] Comment on above: Result Comment: Canc elled via OM: Order cancelled - Patient discharged Performed By: #### L 500.2500, L100.0100 ####[facility] [address] [place], [address] NEUT% Normal 47-70 [facility] Comment on above: Result Comment: Canc elled via OM: Order cancelled - Patient discharged Performed By: #### L 500.2500, L100.0100 ####[facility] [address] [place], [address] PLT Normal 150-450 [facility] Comment on above: Result Comment: Canc elled via OM: Order cancelled - Patient discharged Performed By: #### L 500.2500, L100.0100 ####[facility] [address] [place], [address] RBC Normal 4.6-6.2 [facility] Comment on above: Result Comment: Canc elled via OM: Order cancelled - Patient discharged Performed By: #### L 500.2500, L100.0100 ####[facility] [address] [place], [address] RDW CV Normal 11.6-14.6 [facility] Comment on above: Result Comment: Canc elled via OM: Order cancelled - Patient discharged Performed By: #### L 500.2500, L100.0100 ####[facility] [address] [place], [address] RDW SD Normal 35.1-43.9 [facility] Comment on above: Result Comment: Canc elled via OM: Order cancelled - Patient discharged Performed By: #### L 500.2500, L100.0100 ####[facility] [address] [place], [address] WBC Normal 4.4-11.0 [facility] Comment on above: Result Comment: Canc elled via OM: Order cancelled - Patient discharged Performed By: #### L 500.2500, L100.0100 ####[facility] [address], [address] Basic Metabolic Profile (BMP )on 06-27-2024 BUN Normal 4-19 [facility] Comment on above: Result Comment: Canc elled via OM: Order cancelled - Patient discharged Performed By: #### L 500.2500, L100.0100 ####[facility] [address] [place], [address] BUN/CRE Normal 10-20 [facility] Comment on above: Result Comment: Canc elled via OM: Order cancelled - Patient discharged Performed By: #### L 500.2500, L100.0100 ####[facility] [address] [place], [address] Calcium Normal 7.6-11.0 [facility] Comment on above: Result Comment: Canc elled via OM: Order cancelled - Patient discharged Performed By: #### L 500.2500, L100.0100 ####[facility] [address] [place], [address] CL Normal 98-108 [facility] Comment on above: Result Comment: Canc elled via OM: Order cancelled - Patient discharged Performed By: #### L 500.2500, L100.0100 ####[facility] [address] [place], [address] CO2 Normal 21.0-32.0 [facility] Comment on above: Result Comment: Canc elled via OM: Order cancelled - Patient discharged Performed By: #### L 500.2500, L100.0100 ####[facility] [address] [place], [address] CREAT,SERUM Normal 0.70-1.20 [facility] Comment on above: Result Comment: Canc elled via OM: Order cancelled - Patient discharged Performed By: #### L 500.2500, L100.0100 ####[facility] [address] [place], [address] eGFR Normal >60 [facility] Comment on above: Result Comment: Canc elled via OM: Order cancelled - Patient discharged Performed By: #### L 500.2500, L100.0100 ####[facility] [address] [place], [address] GAP Normal 5-15 [facility] Comment on above: Result Comment: Canc elled via OM: Order cancelled - Patient discharged Performed By: #### L 500.2500, L100.0100 ####[facility] [address] [place], [address] GLU Normal 70-99 [facility] Comment on above: Result Comment: Canc elled via OM: Order cancelled - Patient discharged Performed By: #### L 500.2500, L100.0100 ####[facility] [address] [place], [address] Potassium Normal 3.3-5.1 [facility] Comment on above: Result Comment: Canc elled via OM: Order cancelled - Patient discharged Performed By: #### L 500.2500, L100.0100 ####[facility] [address] [place], [address] Basic Metabolic Profile (BMP) Normal 133-145 [facility] Comment on above: Result Comment: Canc elled via OM: Order cancelled - Patient discharged Performed By: #### L 500.2500, L100.0100 ####[facility] [address] [place], [address] CBC W/Diff, Automatedon 06-10 Absolute Neut Normal 2.0-7.7 [facility] Comment on above: Result Comment: Canc elled via OM: Order cancelled - Patient discharged Performed By: #### L 500.2500, L100.0100 ####[facility] [address] [place], [address] HCT Normal 40-54 [facility] Comment on above: Result Comment: Canc elled via OM: Order cancelled - Patient discharged Performed By: #### L 500.2500, L100.0100 ####[facility] [address] [place], [address] HGB Normal 13.0-16.5 [facility] Comment on above: Result Comment: Canc elled via OM: Order cancelled - Patient discharged Performed By: #### L 500.2500, L100.0100 ####[facility] [address] [place], [address] MCH Normal 27.0-32.0 [facility] Comment on above: Result Comment: Canc elled via OM: Order cancelled - Patient discharged Performed By: #### L 500.2500, L100.0100 ####[facility] [address] [place], [address] MCHC Normal 32-36 [facility] Comment on above: Result Comment: Canc elled via OM: Order cancelled - Patient discharged Performed By: #### L 500.2500, L100.0100 ####[facility] [address] [place], [address] MCV Normal 80-94 [facility] Comment on above: Result Comment: Canc elled via OM: Order cancelled - Patient discharged Performed By: #### L 500.2500, L100.0100 ####[facility] [address] [place], [address] NEUT% Normal 47-70 [facility] Comment on above: Result Comment: Canc elled via OM: Order cancelled - Patient discharged Performed By: #### L 500.2500, L100.0100 ####[facility] [address] [place], [address] PLT Normal 150-450 [facility] Comment on above: Result Comment: Canc elled via OM: Order cancelled - Patient discharged Performed By: #### L 500.2500, L100.0100 ####[facility] [address] [place], [address] RBC Normal 4.6-6.2 [facility] Comment on above: Result Comment: Canc elled via OM: Order cancelled - Patient discharged Performed By: #### L 500.2500, L100.0100 ####[facility] [address] [place], [address] RDW CV Normal 11.6-14.6 [facility] Comment on above: Result Comment: Canc elled via OM: Order cancelled - Patient discharged Performed By: #### L 500.2500, L100.0100 ####[facility] [address] [place], [address] RDW SD Normal 35.1-43.9 [facility] Comment on above: Result Comment: Canc elled via OM: Order cancelled - Patient discharged Performed By: #### L 500.2500, L100.0100 ####[facility] [address] [place], [address] WBC Normal 4.4-11.0 [facility] Comment on above: Result Comment: Canc elled via OM: Order cancelled - Patient discharged Performed By: #### L 500.2500, L100.0100 ####[facility] [address] [place], [address] Basic Metabolic Profile (BMP )on 06-26-2024 BUN Normal 4-19 [facility] Comment on above: Result Comment: Canc elled via OM: Order cancelled - Patient discharged Performed By: #### L 100.0100, L500.2500 ####[facility] [address] [place], [address] BUN/CRE Normal 10-20 [facility] Comment on above: Result Comment: Canc elled via OM: Order cancelled - Patient discharged Performed By: #### L 100.0100, L500.2500 ####[facility] [address] [place], [address] Calcium Normal 7.6-11.0 [facility] Comment on above: Result Comment: Canc elled via OM: Order cancelled - Patient discharged Performed By: #### L 100.0100, L500.2500 ####[facility] [address] [place], [address] CL Normal 98-108 [facility] Comment on above: Result Comment: Canc elled via OM: Order cancelled - Patient discharged Performed By: #### L 100.0100, L500.2500 ####[facility] [address] [place], [address] CO2 Normal 21.0-32.0 [facility] Comment on above: Result Comment: Canc elled via OM: Order cancelled - Patient discharged Performed By: #### L 100.0100, L500.2500 ####[facility] [address] [place], [address] CREAT,SERUM Normal 0.70-1.20 [facility] Comment on above: Result Comment: Canc elled via OM: Order cancelled - Patient discharged Performed By: #### L 100.0100, L500.2500 ####[facility] [address] [place], [address] eGFR Normal >60 [facility] Comment on above: Result Comment: Canc elled via OM: Order cancelled - Patient discharged Performed By: #### L 100.0100, L500.2500 ####[facility] [address] [place], [address] GAP Normal 5-15 [facility] Comment on above: Result Comment: Canc elled via OM: Order cancelled - Patient discharged Performed By: #### L 100.0100, L500.2500 ####[facility] [address] [place], [address] GLU Normal 70-99 [facility] Comment on above: Result Comment: Canc elled via OM: Order cancelled - Patient discharged Performed By: #### L 100.0100, L500.2500 ####[facility] [address] [place], [address] Potassium Normal 3.3-5.1 [facility] Comment on above: Result Comment: Canc elled via OM: Order cancelled - Patient discharged Performed By: #### L 100.0100, L500.2500 ####[facility] [address] [place], [address] Basic Metabolic Profile (BMP) Normal 133-145 [facility] Comment on above: Result Comment: Canc elled via OM: Order cancelled - Patient discharged Performed By: #### L 100.0100, L500.2500 ####[facility] [address] [place], [address] CBC W/Diff, Automatedon 04- Absolute Neut Normal 2.0-7.7 [facility] Comment on above: Result Comment: Canc elled via OM: Order cancelled - Patient discharged Performed By: #### L 100.0100, L500.2500 ####[facility] [address] [place], [address] HCT Normal 40-54 [facility] Comment on above: Result Comment: Canc elled via OM: Order cancelled - Patient discharged Performed By: #### L 100.0100, L500.2500 ####[facility] [address] [place], [address] HGB Normal 13.0-16.5 [facility] Comment on above: Result Comment: Canc elled via OM: Order cancelled - Patient discharged Performed By: #### L 100.0100, L500.2500 ####[facility] [address] [place], [address] MCH Normal 27.0-32.0 [facility] Comment on above: Result Comment: Canc elled via OM: Order cancelled - Patient discharged Performed By: #### L 100.0100, L500.2500 ####[facility] [address] [place], [address] MCHC Normal 32-36 [facility] Comment on above: Result Comment: Canc elled via OM: Order cancelled - Patient discharged Performed By: #### L 100.0100, L500.2500 ####[facility] [address] [place], [address] MCV Normal 80-94 [facility] Comment on above: Result Comment: Canc elled via OM: Order cancelled - Patient discharged Performed By: #### L 100.0100, L500.2500 ####[facility] [address] [place], [address] NEUT% Normal 47-70 [facility] Comment on above: Result Comment: Canc elled via OM: Order cancelled - Patient discharged Performed By: #### L 100.0100, L500.2500 ####[facility] [address] [place], [address] PLT Normal 150-450 [facility] Comment on above: Result Comment: Canc elled via OM: Order cancelled - Patient discharged Performed By: #### L 100.0100, L500.2500 ####[facility] [address] [place], [address] RBC Normal 4.6-6.2 [facility] Comment on above: Result Comment: Canc elled via OM: Order cancelled - Patient discharged Performed By: #### L 100.0100, L500.2500 ####[facility] [address] [place], [address] RDW CV Normal 11.6-14.6 [facility] Comment on above: Result Comment: Canc elled via OM: Order cancelled - Patient discharged Performed By: #### L 100.0100, L500.2500 ####[facility] [address] [place], [address] RDW SD Normal 35.1-43.9 [facility] Comment on above: Result Comment: Canc elled via OM: Order cancelled - Patient discharged Performed By: #### L 100.0100, L500.2500 ####[facility] [address] [place], [address] WBC Normal 4.4-11.0 [facility] Comment on above: Result Comment: Canc elled via OM: Order cancelled - Patient discharged Performed By: #### L 100.0100, L500.2500 ####[facility] [address] [place], [address] Absolute lymphocyte countOrd ered By: Sarai Alcantara on 06-25-2024 Lymphocytes Auto (Unsp spec) [#/Vol] 1.06 10*3/uL 0.83-4.51 [facility] Absolute neutrophil countOrd ered By: Sarai Alcantara on 06-25-2024 Neutrophils (Bld) [#/Vol] 7.0 10*3/uL 2.0-7.7 [facility] Anion gap in Serum or Plasma Ordered By: Sarai Alcantara on 06-25-2024 Anion gap [Moles/Vol] 14 mmol/L 5-15 [facility] Automated lymphocyte count a s percentage of total leukocytesOrdered By: Sarai Alcantara on 06-25-2024 Lymphocytes/100 WBC Auto (Unsp spec) 12.3 % Low 19-41 [facility] BUN/creatinine ratioOrdered By: Sarai Alcantara on 06-25-2024 Urea nitrogen/Creatinine [Mass ratio] 38.9 mg/mg High 10-20 [facility] Basic Metabolic Profile (BMP )on 06-25-2024 Urea nitrogen [Mass/Vol] 110 mg/dL Invalid Interpretation Code 4-19 [facility] Comment on above: Result Comment: Crit ical Result(s) Called at 0852: by:?? DIDIER DUENAS. Results read back by same.Critical Result(s) Called at: by:??Results read back bysame. AMENDED REPORT 06/25/249[address] BUN previously reported as: 110 *H mg/dLCritical Result(s) Called at 0852: by:?? DIDIER DUENAS. Results read back by same. Performed By: #### L 500.2500, L100.0100 ####[facility] [address] [place], [address] Basophil percentageOrdered B y: Sarai Alcantara on 06-25-2024 Basophils/100 WBC (Bld) 0.1 % 0-1 [facility] Bedside Glucoseon 06-25-2024 FINGERSTICK GLU 237 mg/dL High 74-106 [facility] Comment on above: Result Comment: MYKE GEMENT OF PATIENT CARE PER NURSING PROTOCOL Performed By: #### L 501.080 ####[facility] [address] [place], [address] FINGERSTICK GLU 161 mg/dL High 74-106 [facility] Comment on above: Result Comment: MYKE GEMENT OF PATIENT CARE PER NURSING PROTOCOL Performed By: #### L 501.080 ####[facility] [address] [place], [address] FINGERSTICK GLU 118 mg/dL High 74-106 [facility] Comment on above: Result Comment: MYKE GEMENT OF PATIENT CARE PER NURSING PROTOCOL Performed By: #### L 501.080 ####[facility] [address] [place], [address] CBC W/Diff, Automatedon 04 Absolute Lymph 1.06 X10 3/uL Normal 0.83-4.51 [facility] Comment on above: Performed By: #### L 500.2500, L100.0100 ####[facility] [address] [place], [address] Absolute Neut 7.0 X10 3/uL Normal 2.0-7.7 [facility] Comment on above: Performed By: #### L 500.2500, L100.0100 ####[facility] [address] [place], [address] Basophils/100 WBC (Bld) 0.1 % Normal 0-1 [facility] Comment on above: Performed By: #### L 500.2500, L100.0100 ####[facility] [address] [place], [address] Eosinophils/100 WBC (Bld) 0.3 % Normal 0-5 [facility] Comment on above: Performed By: #### L 500.2500, L100.0100 ####[facility] [address] [place], [address] Erythrocyte distribution width (RBC) [Ratio] 13.7 % Normal 11.6-14.6 [facility] Comment on above: Performed By: #### L 500.2500, L100.0100 ####[facility] [address] [place], [address] Hematocrit (Bld) [Volume fraction] 23.4 % Low 40-54 [facility] Comment on above: Performed By: #### L 500.2500, L100.0100 ####[facility] [address] [place], [address] Hemoglobin (Bld) [Mass/Vol] 8.0 g/dL Low 13.0-16.5 [facility] Comment on above: Performed By: #### L 500.2500, L100.0100 ####[facility] [address] [place], [address] IG% 0.300 Normal 0.0-0.9 [facility] Comment on above: Result Comment: IG% - Immature Granulocytes (promyelocytes, myelocytes andmetamyelocytes) > 1% indicates that a LEFT SHIFT is Present. Performed By: #### L 500.2500, L100.0100 ####[facility] [address] [place], [address] Lymphocytes/100 WBC (Bld) 12.3 % Low 19-41 [facility] Comment on above: Performed By: #### L 500.2500, L100.0100 ####[facility] [address] [place], [address] MCH (RBC) [Entitic mass] 31.3 pg Normal 27.0-32.0 [facility] Comment on above: Performed By: #### L 500.2500, L100.0100 ####[facility] [address] [place], [address] MCHC (RBC) [Mass/Vol] 34.2 g/dL Normal 32-36 [facility] Comment on above: Performed By: #### L 500.2500, L100.0100 ####[facility] [address] [place], [address] MCV (RBC) [Entitic vol] 91.4 fL Normal 80-94 [facility] Comment on above: Performed By: #### L 500.2500, L100.0100 ####[facility] [address] [place], [address] Monocytes/100 WBC (Bld) 6.1 % Normal 0-10 [facility] Comment on above: Performed By: #### L 500.2500, L100.0100 ####[facility] [address] [place], [address] Neutrophils/100 WBC (Bld) 80.9 % High 47-70 [facility] Comment on above: Performed By: #### L 500.2500, L100.0100 ####[facility] [address] [place], [address] Nucleated RBC (Bld) [#/Vol] 0 10*3/uL Normal 0-5 [facility] Comment on above: Performed By: #### L 500.2500, L100.0100 ####[facility] [address] [place], [address] Platelet mean volume (Bld) [Entitic vol] 11.0 fL Normal 6.2-12.0 [facility] Comment on above: Performed By: #### L 500.2500, L100.0100 ####[facility] [address] [place], [address] Platelets (Bld) [#/Vol] 94 10*3/uL Low 150-450 [facility] Comment on above: Performed By: #### L 500.2500, L100.0100 ####[facility] [address] [place], [address] RBC (Bld) [#/Vol] 2.56 10*6/uL Low 4.6-6.2 [facility] Comment on above: Performed By: #### L 500.2500, L100.0100 ####[facility] [address] [place], [address] RDW SD 44.8 fl High 35.1-43.9 [facility] Comment on above: Performed By: #### L 500.2500, L100.0100 ####[facility] [address] [place], [address] WBC (Bld) [#/Vol] 8.6 10*3/uL Normal 4.4-11.0 [facility] Comment on above: Performed By: #### L 500.2500, L100.0100 ####[facility] [address] [place], [address] Carbon dioxide, total [Moles /volume] in Central venous bloodOrdered By: Sarai Alcantara on 06-25-2024 CO2 [Moles/Vol] 25.1 mmol/L 21.0-32.0 [facility] Chloride assayOrdered By: Na na Quinton on 06-25-2024 Chloride [Moles/Vol] 99 mmol/L 98-108 [facility] Discharge Instructionon 06-10 Discharge Instruction Normal [facility] Eosinophil percentageOrdered By: Sarai Alcantara on 06-25-2024 Eosinophils/100 WBC (Bld) 0.3 % 0-5 [facility] Erythrocyte distribution wid th (RBC) [Ratio]Ordered By: Sarai Alcantara on 06-25-2024 Erythrocyte distribution width (RBC) [Entitic vol] 44.8 fL High 35.1-43.9 [facility] Erythrocyte distribution wid th ratioOrdered By: Sarai Alcantara 06-25-2024 Erythrocyte distribution width (RBC) [Ratio] 13.7 % 11.6-14.6 [facility] Erythrocyte distribution wid th standard deviationOrdered By: Sarai Alcantara on 06-25-2024 Erythrocyte distribution width (RBC) [Ratio] 44.8 fl High 35.1-43.9 [facility] Estimation of creatinine timur aranceOrdered By: Sarai Alcantara on 06-25-2024 Estimated Creatinine Clearance Calc 18.84 ml/min Low 50-250 [facility] GFR/1.73 sq M.predicted kaveh g non-blacks MDRD (S/P/Bld) [Vol rate/Area]Ordered By: Sarai Alcantara on 06-25-2024 Estimated GFR (MDRD) Non-Af Amer 21 Low >60 [facility] Comment on above: mL/min/1.73m2 CKD-EP I Creatinine Equation (2020) Glomerular filtration rate ( GFR) estimation/1.73 sq m using serum, plasma, or whole bOrdered By: Sarai Alcantara on 06-25-2024 GFR/1.73 sq M.predicted among non-blacks MDRD (S/P/Bld) [Vol rate/Area] 21 mL/min/{1.73_m2} Low >60 [facility] [facility] Comment on above: mL/min/1.73m2 CKD-EP I Creatinine Equation (2020) [facility] deOrdered By: Sarai Alcantara on 06-25-2024 Bedside Glucose (Misc Panel) 237 mg/dL High 74-106 [facility] Comment on above: MANAGEMENT OF PATIEN T CARE PER NURSING PROTOCOL Glucose [Mass/Vol] 237 mg/dL High 74-106 [facility] Comment on above: MANAGEMENT OF PATIEN T CARE PER NURSING PROTOCOL Hematocrit Auto (Bld) [Volum e fraction]Ordered By: Sarai Alcantara on 06-25-2024 Hematocrit (Bld) [Volume fraction] 23.4 % Low 40-54 [facility] Hemoglobin measurementOrdere d By: Sarai Alcantara on 06-25-2024 Hemoglobin (Bld) [Mass/Vol] 8.0 g/dL Low 13.0-16.5 [facility] Immature granulocytes/100 WB C Auto (Bld)Ordered By: Sarai Alcantara on 06-25-2024 Immature granulocytes/100 WBC (Bld) 0.300 % 0.0-0.9 [facility] Comment on above: IG% - Immature Granu locytes (promyelocytes, myelocytes and metamyelocytes) > 1% indicates that a LEFT SHIFT is Present. Lymphocytes Auto (Unsp spec) [#/Vol]Ordered By: Sarai Alcantara on 06-25-2024 Lymphocytes (Bld) [#/Vol] 1.06 10*3/uL 0.83-4.51 [facility] Lymphocytes/100 WBC Auto (Un sp spec)Ordered By: Sarai Alcantara on 06-25-2024 Lymphocytes/100 WBC (Bld) 12.3 % Low 19-41 [facility] MCV (mean corpuscular volume ) determinationOrdered By: Sarai Alcantara on 06-25-2024 MCV (RBC) [Entitic vol] 91.4 fL 80-94 [facility] Mean corpuscular hemoglobin (MCH) determinationOrdered By: Sarai Alcantara on 06-25-2024 MCH (RBC) [Entitic mass] 31.3 pg 27.0-32.0 [facility] Mean corpuscular hemoglobin concentration (MCHC) determinationOrdered By: Sarai Alcantara on 06-25-2024 MCHC (RBC) [Mass/Vol] 34.2 g/dL 32-36 [facility] Mean platelet volume determi nationOrdered By: Sarai Alcantara on 06-25-2024 Platelet mean volume (Bld) [Entitic vol] 11.0 fL 6.2-12.0 [facility] Monocyte percentageOrdered B y: Sarai Alcantara on 06-25-2024 Monocytes/100 WBC (Bld) 6.1 % 0-10 [facility] Neutrophil percentageOrdered By: Sarai Alcantara on 06-25-2024 Neutrophils/100 WBC (Bld) 80.9 % High 47-70 [facility] Nucleated red blood cell per centageOrdered By: Sarai Alcantara on 06-25-2024 Nucleated RBC/100 WBC (Bld) [Ratio] 0 % 0-5 [facility] Platelet countOrdered By: Na bria Alcantara on 06-25-2024 Platelets (Bld) [#/Vol] 94 10*3/uL Low 150-450 [facility] Potassium (Unsp spec) [Mass/ Vol]Ordered By: Sarai Alcantara on 06-25-2024 Potassium [Moles/Vol] 4.4 mmol/L 3.3-5.1 [facility] Potassium measurement (mass/ volume)Ordered By: Sarai Alcantara on 06-25-2024 Potassium (Unsp spec) [Mass/Vol] 4.4 mmol/L 3.3-5.1 [facility] RBC Auto (Bld) [#/Vol]Ordere d By: Sarai Alcantara on 06-25-2024 RBC (Bld) [#/Vol] 2.56 10*6/uL Low 4.6-6.2 [facility] Serum creatinine measurement (mass/volume)Ordered By: Sarai Alcantara on 06-25-2024 Creatinine [Mass/Vol] 2.83 mg/dL High 0.70-1.20 [facility] Serum glucose measurement (m ass/volume)Ordered By: Sarai Alcantara on 06-25-2024 Glucose [Mass/Vol] 126 mg/dL High 70-99 [facility] Serum or plasma calcium elmira urement (mass/volume)Ordered By: Sarai Alcantara on 06-25-2024 Calcium [Mass/Vol] 9.3 mg/dL 7.6-11.0 [facility] Serum or plasma urea nitroge n measurement (mass/volume)Ordered By: Sarai Alcantara on 06-25-2024 Urea nitrogen [Mass/Vol] 110 mg/dL High 4-19 [facility] Comment on above: Critical Result(s) C alled at 0852: by: DIDIER XIAO [facility]. Results read back by same. Critical Result(s) Called at: by: Results read back by same.Previous reported result: 110 mg/dLEdited by: VICKY on 06/25/24:0912 AMENDED REPORT 06/25/24 09 BUN previously reported as: 110 *H mg/dL Critical Result(s) Called at 0852: by: DIDIER [facility]. Results read back by same. Sodium levelOrdered By: Sarai Alcantara on 06-25-2024 Sodium [Moles/Vol] 138 mmol/L 133-145 [facility] White blood cell (WBC) count Ordered By: Sarai Alcantara on 06-25-2024 WBC (Bld) [#/Vol] 8.6 10*3/uL 4.4-11.0 [facility] Bedside Glucoseon 06-24-2024 FINGERSTICK GLU 128 mg/dL High 74-106 [facility] Comment on above: Result Comment: MYKE GEMENT OF PATIENT CARE PER NURSING PROTOCOL Performed By: #### L 501.080 ####[facility] [address] [facility] [address] FINGERSTICK GLU 184 mg/dL High 74-106 [facility] Comment on above: Result Comment: MYKE GEMENT OF PATIENT CARE PER NURSING PROTOCOL Performed By: #### L 501.080 ####[facility] [address] [place], [address] FINGERSTICK GLU 276 mg/dL High 74-106 [facility] Comment on above: Result Comment: MYKE GEMENT OF PATIENT CARE PER NURSING PROTOCOL Performed By: #### L 501.080 ####[facility] [address] [place], [address] FINGERSTICK GLU 172 mg/dL High 74-106 [facility] Comment on above: Result Comment: MYKE SAGE OF PATIENT CARE PER NURSING PROTOCOL Performed By: #### L 501.080 ####[facility] [address] [place], [address] Bilirubin, totalOrdered By: Tracy Angel on 06-24-2024 Bilirubin [Mass/Vol] 0.32 mg/dL 0.00-1.30 [facility] Blood polychromasia detectio n by light microscopyOrdered By: Tracy Angel on 06-24-2024 Polychromasia LM Ql (Bld) 1+ [facility] CBC W/Diff, Automatedon 06-10 OVALOCYTE 1+ Normal [facility] Comment on above: Performed By: #### L 100.0100, L500.4100, L500.4050 ####[facility] [address] [place], [address] PLT EST MOD DEC Normal ADEQ [facility] Comment on above: Performed By: #### L 100.0100, L500.4100, L500.4050 ####[facility] [address] [place], [address] POLYCHROMASIA 1+ Normal [facility] Comment on above: Performed By: #### L 100.0100, L500.4100, L500.4050 ####[facility] [address] [place], [address] Calculated very low density lipoprotein (VLDL) cholesterol measurementOrdered By: Tracy Angel on 06-24-2024 Calculated very low density lipoprotein (VLDL) cholesterol measurement 21 mg/dL 5-40 [facility] VLDL Cholesterol 21 mg/dL 5-40 [facility] Comprehensive Metabolic Prof ilon 06-24-2024 Albumin [Mass/Vol] 4.0 g/dL Normal 3.4-4.8 [facility] Comment on above: Performed By: #### L 100.0100, L500.4100, L500.4050 ####[facility] [address] [place], [address] Albumin/Globulin [Mass ratio] 1.4 {ratio} Normal 0.9-2.4 [facility] Comment on above: Performed By: #### L 100.0100, L500.4100, L500.4050 ####[facility] [address] [place], [address] ALK PHOS 71 U/L Normal 40-129 [facility] Comment on above: Performed By: #### L 100.0100, L500.4100, L500.4050 ####[facility] [address] [place], [address] ALT [Catalytic activity/Vol] 31 U/L Normal <=46 [facility] Comment on above: Performed By: #### L 100.0100, L500.4100, L500.4050 ####[facility] [address] [place], [address] AST [Catalytic activity/Vol] 18 U/L Normal <=37 [facility] Comment on above: Performed By: #### L 100.0100, L500.4100, L500.4050 ####[facility] [address] [place], [address] Bilirubin [Mass/Vol] 0.32 mg/dL Normal 0.00-1.30 [facility] Comment on above: Performed By: #### L 100.0100, L500.4100, L500.4050 ####[facility] [address] [place], [address] BUN/CRE 36.8 RATIO High 10-20 [facility] Comment on above: Performed By: #### L 100.0100, L500.4100, L500.4050 ####[facility] [address] [place], [address] Calcium [Mass/Vol] 9.5 mg/dL Normal 7.6-11.0 [facility] Comment on above: Performed By: #### L 100.0100, L500.4100, L500.4050 ####[facility] [address] [place], [address] Chloride [Moles/Vol] 101 mmol/L Normal 98-108 [facility] Comment on above: Performed By: #### L 100.0100, L500.4100, L500.4050 ####[facility] [address] [place], [address] CO2 [Moles/Vol] 24.8 mmol/L Normal 21.0-32.0 [facility] Comment on above: Performed By: #### L 100.0100, L500.4100, L500.4050 ####[facility] [address] [place], [address] Creatinine [Mass/Vol] 2.57 mg/dL High 0.70-1.20 [facility] Comment on above: Performed By: #### L 100.0100, L500.4100, L500.4050 ####[facility] [address] [place], [address] ECRCL 20.74 ml/min Low 50-250 [facility] Comment on above: Performed By: #### L 100.0100, L500.4100, L500.4050 ####[facility] [address] [place], [address] GAP 14 Normal 5-15 [facility] Comment on above: Performed By: #### L 100.0100, L500.4100, L500.4050 ####[facility] [address] [place], [address] GFR/1.73 sq M.predicted among non-blacks MDRD (S/P/Bld) [Vol rate/Area] 24 mL/min/{1.73_m2} Low >60 [facility] Comment on above: Result Comment: mL/m in/1.73m2 CKD-EPI Creatinine Equation (2020) Performed By: #### L 100.0100, L500.4100, L500.4050 ####[facility] [address] [place], [address] Globulin (S) [Mass/Vol] 2.9 g/dL Normal 2.2-4.2 [facility] Comment on above: Performed By: #### L 100.0100, L500.4100, L500.4050 ####[facility] [address] [place], [address] Glucose [Mass/Vol] 170 mg/dL High 70-99 [facility] Comment on above: Performed By: #### L 100.0100, L500.4100, L500.4050 ####[facility] [address] [place], [address] Potassium [Moles/Vol] 4.6 mmol/L Normal 3.3-5.1 [facility] Comment on above: Performed By: #### L 100.0100, L500.4100, L500.4050 ####[facility] [address] [place], [address] Sodium [Moles/Vol] 140 mmol/L Normal 133-145 [facility] Comment on above: Performed By: #### L 100.0100, L500.4100, L500.4050 ####[facility] [address] [place], [address] T PROT 6.9 g/dL Normal 5.9-8.4 [facility] Comment on above: Performed By: #### L 100.0100, L500.4100, L500.4050 ####[facility] [address] [place], [address] Urea nitrogen [Mass/Vol] 95 mg/dL High 06-28 [facility] Comment on above: Performed By: #### L 100.0100, L500.4100, L500.4050 ####[facility] [address] [place], [address] Electrocardiogram reportOrde red By: Trell Kendrick on 06-24-2024 EKG study [facility] [address] [place] [address] 12 Lead EKG 06/23/24 1437 MR#: [id number] Acct: [id number] Name: BEULAH BRIGHT Rep #:[id number] : 1940 84 From: Trell lopez MD Attending Dr: Dr. Sarai Alcantara MD Status: ADM IN Ordering Dr: Delia Tai Date: 06/23/24 Location: [facility] Sex: M C Admitted: 06/23/24 [...] abnormality Abnormal ECG Confirmed by Trell Kendrick ([id number]), electronic news gathering editor ZACKARY MARTINEZ ([id number]) on :28:21 AM Referred By: TEETEE Confirmed By: Trell Kendrick 06/24/24 1128 Date _ Trell Kendrick MD CC: Dr. Sarai Alcantara MD; Dr. Yuridia Hernandez MD; MIKE Calhoun ~ Signed [facility] Work Phone: LDL calc ser/plasOrdered By: Tracy Angel on 06-24-2024 Cholesterol in LDL [Mass/Vol] 92 mg/dL [facility] Comment on above: Flxbpcordr=072-378 m g/dL & Higher Gwwv=405 mg/dL or greater LDL Cholesterol, Calculated 92 mg/dL [facility] Comment on above: Diiswdkzmb=137-977 m g/dL & Higher Vdcy=315 mg/dL or greater Laboratory - Chemistry and C hemistry - challengeOrdered By: Tracy Angel on 06-24-2024 AST [Catalytic activity/Vol] 18 U/L <38 [facility] Lipid Profileon 06-24-2024 CHOL:HDL 4.12 Normal [facility] Comment on above: Performed By: #### L 100.0100, L500.4100, L500.4050 ####[facility] [address] [place], [address] Cholesterol [Mass/Vol] 149 mg/dL Normal <=200 [facility] Comment on above: Result Comment: Chol esterol level, Desirable <200 mg/dLBorderline high cholesterol 200-239 mg/dLHigh cholesterol >=240 mg/dLRecommendations of the NCEP Adult Treatment Panel for thefollowing risk-cutoff thresholds for the [place] [facility]. Performed By: #### L 100.0100, L500.4100, L500.4050 ####[facility] [address] [place], [address] Cholesterol in HDL [Mass/Vol] 36 mg/dL Low [facility] Comment on above: Result Comment: Maritza onal Cholesterol Education Program (NCEP) guidelines:<40 mg/dL: Low HDL-cholesterol (major risk factor for CHD)>= 60 mg/dL: High HDL-cholesterol (negative risk factor forCHD)HDL-cholesterol is affected by a number of factors, e.g.smoking, exercise, hormones, sex and age. Performed By: #### L 100.0100, L500.4100, L500.4050 ####[facility] [address] [place], [address] Cholesterol in LDL [Mass/Vol] 92 mg/dL Normal [facility] Comment on above: Result Comment: Bord lqcwpt=650-996 mg/dL Higher Kfbb=594 mg/dL or greater Performed By: #### L 100.0100, L500.4100, L500.4050 ####[facility] [address] [place], [address] Cholesterol in VLDL [Mass/Vol] 21 mg/dL Normal 5-40 [facility] Comment on above: Performed By: #### L 100.0100, L500.4100, L500.4050 ####[facility] [address] [place], [address] Triglyceride [Mass/Vol] 106 mg/dL Normal [facility] Comment on above: Result Comment: The drugs N-Acetylcysteine and Metamizole may falselydepress this assay.Normal range: <150 mg/dLBorderline High: 150-199 mg/dLHigh: 200-499 mg/dLVery High: >500 mg/dL Performed By: #### L 100.0100, L500.4100, L500.4050 ####[facility] [address] [place], [address] Ovalocyte detectionOrdered B y: White on 06-24-2024 Ovalocytes LM Ql (Bld) 1+ [facility] Ovalocytes LM Ql (Bld)Ordere d By: White on 06-24-2024 Ovalocytes 1+ [facility] Platelet estimateOrdered By: White on 06-24-2024 Platelets LM Ql (Bld) MOD DEC ADEQ [facility] Platelets LM Ql (Bld)Ordered By: White on 06-24-2024 Platelet Estimate MOD DEC ADEQ [facility] Polychromasia LM Ql (Bld)Ord ered By: White on 06-24-2024 Polychromasia 1+ [facility] RESPIRATORY PANEL MOLECULARo n 06-24-2024 RP PANEL Normal [facility] Comment on above: Performed By: #### M 100.638 ####[facility] [address] [place], [address] Screening total cholesterol/ high density lipoprotein (HDL) cholesterol ratioOrdered By: Tracy Stanley on 06-24-2024 Cholesterol.total/Choles terol in HDL [Mass ratio] 4.12 {ratio} [facility] Serum globulin measurementOr dered By: [facility] 06-24-2024 Globulin (S) [Mass/Vol] 2.9 g/dL 2.2-4.2 [facility] Serum or plasma alanine duque otransferase (ALT) measurementOrdered By: [facility] 06-24-2024 ALT [Catalytic activity/Vol] 31 U/L <47 [facility] Serum or plasma albumin elmira urement (mass/volume)Ordered By: [facility] 06-24-2024 Albumin [Mass/Vol] 4.0 g/dL 3.4-4.8 [facility] Serum or plasma albumin/glob ulin mass ratioOrdered By: [facility] 06-24-2024 Albumin/Globulin [Mass ratio] 1.4 {ratio} 0.9-2.4 [facility] Serum or plasma alkaline lissa sphatase measurementOrdered By: [facility] 06-24-2024 ALP [Catalytic activity/Vol] 71 U/L 40-129 [facility] Serum or plasma cholesterol in HDL measurement (mass/volume)Ordered By: [facility] 06-24-2024 Cholesterol in HDL [Mass/Vol] 36 mg/dL Low >40 [facility] Comment on above: National Cholesterol Education Program (NCEP) guidelines:<40 mg/dL: Low HDL-cholesterol (major risk factor for CHD)>= 60 mg/dL: High HDL-cholesterol (negative risk factor for CHD)HDL-cholesterol is affected by a number of factors, e.g. smoking, exercise, hormones, sex and age. Serum or plasma cholesterol measurement (mass/volume)Ordered By: Tracy Stanley 06-24-2024 Cholesterol [Mass/Vol] 149 mg/dL <201 [facility] Comment on above: Cholesterol level, D esirable <200 mg/dLBorderline high cholesterol 200-239 mg/dLHigh cholesterol >=240 mg/dLRecommendations of the NCEP Adult Treatment Panel for the following risk-cutoff thresholds for the [place] population. Total proteinOrdered By: Raine harper Stanley on 06-24-2024 Protein [Mass/Vol] 6.9 g/dL 5.9-8.4 [facility] Triglycerides measurementOrd ered By: Tracy Stanley on 06-24-2024 Triglyceride [Mass/Vol] 106 mg/dL <199 [facility] Comment on above: The drugs N-Acetylcy steine and Metamizole may falsely depress this assay. Normal range: <150 mg/dLBorderline High: 150-199 mg/dLHigh: 200-499 mg/dLVery High: >500 mg/dL 12 Lead EKGon 06-23-2024 12 Lead EKG Normal [facility] Absolute neutrophil countOrd ered By: Delia Tai on 06-23-2024 Neutrophils (Bld) [#/Vol] 4.2 10*3/uL 2.0-7.7 [facility] Anion gap in Serum or Plasma Ordered By: Delia Tai on 06-23-2024 Anion gap [Moles/Vol] 13 mmol/L 07-24 [facility] BUN/creatinine ratioOrdered By: Delia Tai on 06-23-2024 Urea nitrogen/Creatinine [Mass ratio] 36.4 mg/mg High 12-29 [facility] Basic Metabolic Profile (BMP )on 06-23-2024 BUN/CRE 36.4 RATIO High 12-29 [facility] Comment on above: Performed By: #### L 503.7505, L100.0100, L500.2500 ####[facility] [address] [place], [address] Calcium [Mass/Vol] 9.3 mg/dL Normal 7.6-11.0 [facility] Comment on above: Performed By: #### L 503.7505, L100.0100, L500.2500 ####[facility] [address] [place], [address] Chloride [Moles/Vol] 103 mmol/L Normal 98-108 [facility] Comment on above: Performed By: #### L 503.7505, L100.0100, L500.2500 ####[facility] [address] [place], [address] CO2 [Moles/Vol] 25.6 mmol/L Normal 21.0-32.0 [facility] Comment on above: Performed By: #### L 503.7505, L100.0100, L500.2500 ####[facility] [address] [place], [address] Creatinine [Mass/Vol] 2.36 mg/dL High 0.70-1.20 [facility] Comment on above: Performed By: #### L 503.7505, L100.0100, L500.2500 ####[facility] [address] [place], [address] ECRCL 22.61 ml/min Low 50-250 [facility] Comment on above: Performed By: #### L 503.7505, L100.0100, L500.2500 ####[facility] [address] [place], [address] GAP 13 Normal 5-15 [facility] Comment on above: Performed By: #### L 503.7505, L100.0100, L500.2500 ####[facility] [address] [place], [address] GFR/1.73 sq M.predicted among non-blacks MDRD (S/P/Bld) [Vol rate/Area] 26 mL/min/{1.73_m2} Low >60 [facility] Comment on above: Result Comment: mL/m in/1.73m2 CKD-EPI Creatinine Equation (2020) Performed By: #### L 503.7505, L100.0100, L500.2500 ####[facility] [address] [place], [address] Glucose [Mass/Vol] 200 mg/dL High 70-99 [facility] Comment on above: Performed By: #### L 503.7505, L100.0100, L500.2500 ####[facility] [address] [place], [address] Potassium [Moles/Vol] 4.3 mmol/L Normal 3.3-5.1 [facility] Comment on above: Performed By: #### L 503.7505, L100.0100, L500.2500 ####[facility] [address] [place], [address] Sodium [Moles/Vol] 142 mmol/L Normal 133-145 [facility] Comment on above: Performed By: #### L 503.7505, L100.0100, L500.2500 ####[facility] [address] [place], [address] Urea nitrogen [Mass/Vol] 86 mg/dL High 4-19 [facility] Comment on above: Performed By: #### L 503.7505, L100.0100, L500.2500 ####[facility] [address] [place], [address] Basophil percentageOrdered B y: Delialeobardo Tai on 06-23-2024 Basophils/100 WBC (Bld) 0.5 % 0-1 [facility] Bedside Glucoseon 06-23-2024 FINGERSTICK GLU 205 mg/dL High 74-106 [facility] Comment on above: Result Comment: MYKE SAGE OF PATIENT CARE PER NURSING PROTOCOL Performed By: #### L 501.080 ####[facility] [address] [place], [address] CBC W/Diff, Automatedon 06-10 Absolute Lymph 1.05 X10 3/uL Normal 0.83-4.51 [facility] Comment on above: Performed By: #### L 503.7505, L100.0100, L500.2500 ####[facility] [address] [place], [address] Absolute Neut 4.2 X10 3/uL Normal 2.0-7.7 [facility] Comment on above: Performed By: #### L 503.7505, L100.0100, L500.2500 ####[facility] [address] [place], [address] Basophils/100 WBC (Bld) 0.5 % Normal 0-1 [facility] Comment on above: Performed By: #### L 503.7505, L100.0100, L500.2500 ####[facility] [address] [place], [address] Eosinophils/100 WBC (Bld) 3.5 % Normal 0-5 [facility] Comment on above: Performed By: #### L 503.7505, L100.0100, L500.2500 ####[facility] [address] [place], [address] Erythrocyte distribution width (RBC) [Ratio] 13.2 % Normal 11.6-14.6 [facility] Comment on above: Performed By: #### L 503.7505, L100.0100, L500.2500 ####[facility] [address] [place], [address] Hematocrit (Bld) [Volume fraction] 27.0 % Low 40-54 [facility] Comment on above: Performed By: #### L 503.7505, L100.0100, L500.2500 ####[facility] [address] [place], [address] Hemoglobin (Bld) [Mass/Vol] 8.5 g/dL Low 13.0-16.5 [facility] Comment on above: Performed By: #### L 503.7505, L100.0100, L500.2500 ####[facility] [address], [address] IG% 0.300 Normal 0.0-0.9 [facility] Comment on above: Result Comment: IG% - Immature Granulocytes (promyelocytes, myelocytes andmetamyelocytes) > 1% indicates that a LEFT SHIFT is Present. Performed By: #### L 503.7505, L100.0100, L500.2500 ####[facility] [address] [place], [address] Lymphocytes/100 WBC (Bld) 17.7 % Low 19-41 [facility] Comment on above: Performed By: #### L 503.7505, L100.0100, L500.2500 ####[facility] [address] [place], [address] MCH (RBC) [Entitic mass] 29.9 pg Normal 27.0-32.0 [facility] Comment on above: Performed By: #### L 503.7505, L100.0100, L500.2500 ####[facility] [address] [place], [address] MCHC (RBC) [Mass/Vol] 31.5 g/dL Low 32-36 [facility] Comment on above: Performed By: #### L 503.7505, L100.0100, L500.2500 ####[facility] [address] [place], [address] MCV (RBC) [Entitic vol] 95.1 fL High 80-94 [facility] Comment on above: Performed By: #### L 503.7505, L100.0100, L500.2500 ####[facility] [address] [place], [address] Monocytes/100 WBC (Bld) 6.6 % Normal 0-10 [facility] Comment on above: Performed By: #### L 503.7505, L100.0100, L500.2500 ####[facility] [address] [place], [address] Neutrophils/100 WBC (Bld) 71.4 % High 47-70 [facility] Comment on above: Performed By: #### L 503.7505, L100.0100, L500.2500 ####[facility] [address] [place], [address] Nucleated RBC (Bld) [#/Vol] 0 10*3/uL Normal 0-5 [facility] Comment on above: Performed By: #### L 503.7505, L100.0100, L500.2500 ####[facility] [address] [place], [address] Platelet mean volume (Bld) [Entitic vol] 10.5 fL Normal 6.2-12.0 [facility] Comment on above: Performed By: #### L 503.7505, L100.0100, L500.2500 ####[facility] [address] [place], [address] Platelets (Bld) [#/Vol] 101 10*3/uL Low 150-450 [facility] Comment on above: Performed By: #### L 503.7505, L100.0100, L500.2500 ####[facility] [address] [place], [address] RBC (Bld) [#/Vol] 2.84 10*6/uL Low 4.6-6.2 [facility] Comment on above: Performed By: #### L 503.7505, L100.0100, L500.2500 ####[facility] [address] [place], [address] RDW SD 45.3 fl High 35.1-43.9 [facility] Comment on above: Performed By: #### L 503.7505, L100.0100, L500.2500 ####[facility] [address] [place], [address] WBC (Bld) [#/Vol] 5.9 10*3/uL Normal 4.4-11.0 [facility] Comment on above: Performed By: #### L 503.3286, L100.0100, L500.2500 ####[facility] [address] [place], [address] Carbon dioxide, total [Moles /volume] in Central venous bloodOrdered By: Deila Tai on 06-23-2024 CO2 [Moles/Vol] 25.6 mmol/L 21.0-32.0 [facility] Chest 1 View (Portable)on Chest 1 View (Portable) Normal [facility] Chloride assayOrdered By: Suzan Tai on 06-23-2024 Chloride [Moles/Vol] 103 mmol/L 98-108 [facility] Emergency Department Summary on 06-23-2024 Emergency Department Summary Normal [facility] Eosinophil percentageOrdered By: Delia Tai on 06-23-2024 Eosinophils/100 WBC (Bld) 3.5 % 0-5 [facility] Erythrocyte distribution wid th (RBC) [Ratio]Ordered By: Delia Tai on 06-23-2024 Erythrocyte distribution width (RBC) [Entitic vol] 45.3 fL High 35.1-43.9 [facility] Erythrocyte distribution wid th ratioOrdered By: Delia Tai on 06-23-2024 Erythrocyte distribution width (RBC) [Ratio] 13.2 % 11.6-14.6 [facility] Estimation of creatinine timur aranceOrdered By: Delia Tai on 06-23-2024 Estimated Creatinine Clearance Calc 22.61 ml/min Low 50-250 [facility] GFR/1.73 sq M.predicted kaveh g non-blacks MDRD (S/P/Bld) [Vol rate/Area]Ordered By: Delia Tai on 06-23-2024 Estimated GFR (MDRD) Non-Af Amer 26 Low >60 [facility] Comment on above: mL/min/1.73m2 CKD-EP I Creatinine Equation (2020) H AND P Exam - [facility] 04-14-2025 H&P Exam - Hospitalist Normal [facility] Hematocrit Auto (Bld) [Volum e fraction]Ordered By: Delialeobardo Tai on 06-23-2024 Hematocrit (Bld) [Volume fraction] 27.0 % Low 40-54 [facility] Hemoglobin measurementOrdere d By: Delia Abida on 06-23-2024 Hemoglobin (Bld) [Mass/Vol] 8.5 g/dL Low 13.0-16.5 [facility] Immature granulocytes/100 WB C Auto (Bld)Ordered By: Delia Tai on 06-23-2024 Immature granulocytes/100 WBC (Bld) 0.300 % 0.0-0.9 [facility] Comment on above: IG% - Immature Granu locytes (promyelocytes, myelocytes and metamyelocytes) > 1% indicates that a LEFT SHIFT is Present. Influenza virus A and B and SARS-CoV-2 (COVID-19) and Respiratory syncytial virus RNAOrdered By: Delia Tai on 06-23-2024 SARS-CoV-2 (COVID-19) RNA JOSH+probe Ql (Unsp spec) [facility] L499.0042on 06-23-2024 Trop T High Sen 83 ng/L Invalid Interpretation Code <=22 [facility] Comment on above: Result Comment: Crit ical Result(s) Called ESMART at: 1805 by:ZOYA??Results read back by same. Performed By: #### L 499.0042 ####[facility] [address] [place], [address] L499.0043on 06-23-2024 Trop T High Sen 71 ng/L Invalid Interpretation Code <=22 [facility] Comment on above: Result Comment: Crit ical Result(s) Called AFLICKINGER at: 2157 by:ZOYA??Results read back by same. Performed By: #### L 499.0043 ####[facility] [address] [place], [address] L501.4021on 06-23-2024 Trop T High Sen 83 ng/L Invalid Interpretation Code <=22 [facility] Comment on above: Result Comment: Crit ical Result(s) Called ACOLE at: 1617 by:ZOYA??Results read back by same. Performed By: #### L 501.4021 ####[facility] [address] [place], [address] L503.7505on 06-23-2024 Natriuretic peptide B (Bld) [Mass/Vol] 2233 pg/mL High <=1800 [facility] Comment on above: Result Comment: Hear t Failure Unlikely: < 300 pg/mLHeart Failure Likely< 50 Years: > 450 pg/mL50-75 Years: > 900 pg/mL>75 Years: > 1800 pg/mL Performed By: #### L 503.7505, L100.0100, L500.2500 ####[facility] [address] [place], [address] L509.7001on 06-23-2024 Procalcitonin 0.12 ng/mL High <=0.10 [facility] Comment on above: Result Comment: Inte rpretation:<0.10-0.25 ng/mL: Antibiotic therapy discouraged. Bacterialinfection unlikely.0.25-0.50 ng/mL: Antibiotic therapy encouraged. Bacterialinfection possible.>0.50 ng/mL: Antibiotic therapy strongly encouraged.Suggestive of presence of bacterial infection.PCT should always be interpreted in the clinical context ofthe patient. Therefore, clinicians should use the PCTresults in conjunction with other laboratory findings andclinical signs of the patient. Performed By: #### L 509.7001 ####[facility] [address] [place], [address] Lymphocytes Auto (Unsp spec) [#/Vol]Ordered By: Delia Tai on 06-23-2024 Lymphocytes (Bld) [#/Vol] 1.05 10*3/uL 0.83-4.51 [facility] Lymphocytes/100 WBC Auto (Un sp spec)Ordered By: Delia Tai on 06-23-2024 Lymphocytes/100 WBC (Bld) 17.7 % Low 19-41 [facility] M100.678on 06-23-2024 M100.678 Pending SARS-CoV-2 (COVID 19) Negative INFLUENZA A Negative INFLUENZA B Negative RSV PCR Negative Normal [facility] Comment on above: Performed By: #### M 100.678 ####[facility] [address] [place], [address] M8200.1000on 06-23-2024 M8200.1000 Normal Reference Ran ge = Negative MRSA DNA Nose Ql JOSH+probe GeneXpert Instrument, PCR method MRSA PCR MRSA NEGATIVE Normal [facility] Comment on above: Performed By: #### M 8200.1000 ####[facility] [address] [place], [address] MCV (mean corpuscular volume ) determinationOrdered By: Delia Tai on 06-23-2024 MCV (RBC) [Entitic vol] 95.1 fL High 80-94 [facility] MRSA DNA JOSH+probe Ql (Nose) Ordered By: Tracy Angel on 06-23-2024 MRSA (PCR) [facility] Magnesiumon 06-23-2024 Magnesium [Mass/Vol] 2.0 mg/dL Normal 1.5-2.2 [facility] Comment on above: Order Comment: Comme nts: may add to ED labs Performed By: #### L 501.5200 ####[facility] [address] [place], [address] Magnesium (Unsp spec) [Mass/ Vol]Ordered By: Tracy Angel on 06-23-2024 Magnesium [Mass/Vol] 2.0 mg/dL 1.5-2.2 [facility] Magnesium measurement (mass/ volume)Ordered By: Tracy Angel on 06-23-2024 Magnesium (Unsp spec) [Mass/Vol] 2.0 mg/dL 1.5-2.2 [facility] Mean corpuscular hemoglobin (MCH) determinationOrdered By: Delia Tai on 06-23-2024 MCH (RBC) [Entitic mass] 29.9 pg 27.0-32.0 [facility] Mean corpuscular hemoglobin concentration (MCHC) determinationOrdered By: Delia Tai on 06-23-2024 MCHC (RBC) [Mass/Vol] 31.5 g/dL Low 32-36 [facility] Mean platelet volume determi nationOrdered By: Delia Tai on 06-23-2024 Platelet mean volume (Bld) [Entitic vol] 10.5 fL 6.2-12.0 [facility] Monocyte percentageOrdered B y: Delia Tai on 06-23-2024 Monocytes/100 WBC (Bld) 6.6 % 0-10 [facility] Nasal methicillin resistant Staphylococcus aureus (MRSA) DNA detection by PCROrdered By: Tracy Angel on 06-23-2024 MRSA DNA JOSH+probe Ql (Nose) [facility] Natriuretic peptide.B prohor chris N-Terminal [Mass/Vol]Ordered By: Delia Tai on 06-23-2024 Natriuretic peptide B (Bld) [Mass/Vol] 2233 pg/mL High <1800 [facility] Comment on above: Heart Failure Unlike ly: < 300 pg/mLHeart Failure Likely< 50 Years: > 450 pg/mL50-75 Years: > 900 pg/mL>75 Years: > 1800 pg/mL Natriuretic peptide.B prohor chris N-Terminal [Mass/volume] in Serum or PlasmaOrdered By: Delia Tai on 06-23-2024 Natriuretic peptide.B prohormone N-Terminal [Mass/Vol] 2233 pg/mL High <1800 [facility] [facility] Comment on above: Heart Failure Unlike ly: < 300 pg/mLHeart Failure Likely< 50 Years: > 450 pg/mL50-75 Years: > 900 pg/mL>75 Years: > 1800 pg/mL Neutrophil percentageOrdered By: Delia Tai on 06-23-2024 Neutrophils/100 WBC (Bld) 71.4 % High 47-70 [facility] Nucleated red blood cell per centageOrdered By: Delia Tai on 06-23-2024 Nucleated RBC/100 WBC (Bld) [Ratio] 0 % 0-5 [facility] Platelet countOrdered By: Suzan Tai on 06-23-2024 Platelets (Bld) [#/Vol] 101 10*3/uL Low 150-450 [facility] Potassium (Unsp spec) [Mass/ Vol]Ordered By: Delia Tai on 06-23-2024 Potassium [Moles/Vol] 4.3 mmol/L 3.3-5.1 [facility] Procalcitonin IA [Mass/Vol]O rdered By: Tracy Angel on 06-23-2024 Procalcitonin 0.12 ng/mL High <0.11 [facility] Comment on above: Interpretation:<0.10 -0.25 ng/mL: [...] Procalcitonin IA [Mass/Vol] 0.12 ng/mL High <0.11 [facility] Comment on above: Interpretation:<0.10 -0.25 ng/mL: [...] RBC (Bld) [#/Vol] 2.84 10*6/uL Low 4.6-6.2 [facility] Respiratory pathogens DNA an d RNA panel JOSH+probe (Resp)Ordered By: Tracy Angel on 06-23-2024 Respiratory Panel (PCR) [facility] Respiratory pathogens detect ion panel by molecular detection methodOrdered By: Tracy Angel on 06-23-2024 Respiratory pathogens DNA and RNA panel JOSH+probe (Resp) [facility] Serum creatinine measurement (mass/volume)Ordered By: Delia Tai on 06-23-2024 Creatinine [Mass/Vol] 2.36 mg/dL High 0.70-1.20 [facility] Serum glucose measurement (m ass/volume)Ordered By: Delia Tai on 06-23-2024 Glucose [Mass/Vol] 200 mg/dL High 70-99 [facility] Serum or plasma calcium elmira urement (mass/volume)Ordered By: Delia Tai on 06-23-2024 Calcium [Mass/Vol] 9.3 mg/dL 7.6-11.0 [facility] Serum or plasma urea nitroge n measurement (mass/volume)Ordered By: Delia Tai on 06-23-2024 Urea nitrogen [Mass/Vol] 86 mg/dL High 4-19 [facility] Sodium levelOrdered By: Delia Tai on 06-23-2024 Sodium [Moles/Vol] 142 mmol/L 133-145 [facility] Troponin T.cardiac High sens itivity method [Mass/Vol]Ordered By: Delia Tai on 06-23-2024 Troponin T High Sensitivity 4 Hour 71 ng/L High <22 [facility] Comment on above: Critical Result(s) C alled AFLICKINGER at: 2157 by: BWORKMAN Results read back by same. Troponin T High Sensitivity 2 Hour 83 ng/L High <22 [facility] Comment on above: Critical Result(s) C alled ESMART at: 1805 by: BWORKMAN Results read back by same. Troponin T High Sensitivity 83 ng/L High <22 [facility] Comment on above: Critical Result(s) C alled ACOLE at: 1617 by: BWORKMAN Results read back by same. Troponin T.cardiac [Mass/vol ume] in Serum or Plasma by High sensitivity methodOrdered By: Delia Tai on 06-23-2024 Troponin T.cardiac High sensitivity method [Mass/Vol] 71 ng/L High <22 [facility] Comment on above: Critical Result(s) C alled AFLICKINGER at: 2157 by: BWORKMAN Results read back by same. Troponin T.cardiac High sensitivity method [Mass/Vol] 83 ng/L High <22 [facility] Comment on above: Critical Result(s) C alled ESMART at: 1805 by: ZOYA Results read back by same. Troponin T.cardiac High sensitivity method [Mass/Vol] 83 ng/L High <22 [facility] Comment on above: Critical Result(s) C soha ACOLE at: 1617 by: ZOYA Results read back by same. White blood cell (WBC) count Ordered By: Delia Tai on 06-23-2024 WBC (Bld) [#/Vol] 5.9 10*3/uL 4.4-11.0 [facility] Absolute lymphocyte countOrd ered By: [place] Gerald on 05-28-2024 Lymphocytes Auto (Unsp spec) [#/Vol] 1.74 10*3/uL 0.83-4.51 [facility] Absolute neutrophil countOrd ered By: Andre Duarte on 05-28-2024 Neutrophils (Bld) [#/Vol] 4.4 10*3/uL 2.0-7.7 [facility] Anion gap in Serum or Plasma Ordered By: Andre Duarte on 05-28-2024 Anion gap [Moles/Vol] 14 mmol/L 5-15 [facility] Automated lymphocyte count a s percentage of total leukocytesOrdered By: Andre Duarte on 05-28-2024 Lymphocytes/100 WBC Auto (Unsp spec) 24.2 % 19-41 [facility] BUN/creatinine ratioOrdered By: Andre Duarte on 05-28-2024 Urea nitrogen/Creatinine [Mass ratio] 31.3 mg/mg High 10-20 [facility] Basophil percentageOrdered B y: Andre Duarte on 05-28-2024 Basophils/100 WBC (Bld) 0.6 % 0-1 [facility] Bilirubin, totalOrdered By: Andre Duarte on 05-28-2024 Bilirubin [Mass/Vol] 0.21 mg/dL 0.00-1.30 [facility] CBC W/Diff, Automatedon 05-10 Absolute Lymph 1.74 X10 3/uL Normal 0.83-4.51 [facility] Comment on above: Performed By: #### L 100.0100, L504.2610, L100.9950, L503.6550, L500.4050, L503.6030 ####[facility] [address] [place], [address] Absolute Neut 4.4 X10 3/uL Normal 2.0-7.7 [facility] Comment on above: Performed By: #### L 100.0100, L504.2610, L100.9950, L503.6550, L500.4050, L503.6030 ####[facility] [address] [place], [address] Basophils/100 WBC (Bld) 0.6 % Normal 0-1 [facility] Comment on above: Performed By: #### L 100.0100, L504.2610, L100.9950, L503.6550, L500.4050, L503.6030 ####[facility] [address] [place], [address] Eosinophils/100 WBC (Bld) 5.0 % Normal 0-5 [facility] Comment on above: Performed By: #### L 100.0100, L504.2610, L100.9950, L503.6550, L500.4050, L503.6030 ####[facility] [address] [place], [address] Erythrocyte distribution width (RBC) [Ratio] 11.9 % Normal 11.6-14.6 [facility] Comment on above: Performed By: #### L 100.0100, L504.2610, L100.9950, L503.6550, L500.4050, L503.6030 ####[facility] [address] [place], [address] Hematocrit (Bld) [Volume fraction] 30.5 % Low 40-54 [facility] Comment on above: Performed By: #### L 100.0100, L504.2610, L100.9950, L503.6550, L500.4050, L503.6030 ####[facility] [address] [place], [address] Hemoglobin (Bld) [Mass/Vol] 9.9 g/dL Low 13.0-16.5 [facility] Comment on above: Performed By: #### L 100.0100, L504.2610, L100.9950, L503.6550, L500.4050, L503.6030 ####[facility] [address] [place], [address] IG% 0.300 Normal 0.0-0.9 [facility] Comment on above: Result Comment: IG% - Immature Granulocytes (promyelocytes, myelocytes andmetamyelocytes) > 1% indicates that a LEFT SHIFT is Present. Performed By: #### L 100.0100, L504.2610, L100.9950, L503.6550, L500.4050, L503.6030 ####[facility] [address] [place], [address] Lymphocytes/100 WBC (Bld) 24.2 % Normal 19-41 [facility] Comment on above: Performed By: #### L 100.0100, L504.2610, L100.9950, L503.6550, L500.4050, L503.6030 ####[facility] [address] [place], [address] MCH (RBC) [Entitic mass] 30.7 pg Normal 27.0-32.0 [facility] Comment on above: Performed By: #### L 100.0100, L504.2610, L100.9950, L503.6550, L500.4050, L503.6030 ####[facility] [address] [place], [address] MCHC (RBC) [Mass/Vol] 32.5 g/dL Normal 32-36 [facility] Comment on above: Performed By: #### L 100.0100, L504.2610, L100.9950, L503.6550, L500.4050, L503.6030 ####[facility] [address] [place], [address] MCV (RBC) [Entitic vol] 94.4 fL High 80-94 [facility] Comment on above: Performed By: #### L 100.0100, L504.2610, L100.9950, L503.6550, L500.4050, L503.6030 ####[facility] [address] [place], [address] Monocytes/100 WBC (Bld) 8.2 % Normal 0-10 [facility] Comment on above: Performed By: #### L 100.0100, L504.2610, L100.9950, L503.6550, L500.4050, L503.6030 ####[facility] [address] [place], [address] Neutrophils/100 WBC (Bld) 61.7 % Normal 47-70 [facility] Comment on above: Performed By: #### L 100.0100, L504.2610, L100.9950, L503.6550, L500.4050, L503.6030 ####[facility] [address] [place], [address] Nucleated RBC (Bld) [#/Vol] 0 10*3/uL Normal 0-5 [facility] Comment on above: Performed By: #### L 100.0100, L504.2610, L100.9950, L503.6550, L500.4050, L503.6030 ####[facility] [address] [place], [address] Platelet mean volume (Bld) [Entitic vol] 10.8 fL Normal 6.2-12.0 [facility] Comment on above: Performed By: #### L 100.0100, L504.2610, L100.9950, L503.6550, L500.4050, L503.6030 ####[facility] [address] [place], [address] Platelets (Bld) [#/Vol] 128 10*3/uL Low 150-450 [facility] Comment on above: Performed By: #### L 100.0100, L504.2610, L100.9950, L503.6550, L500.4050, L503.6030 ####[facility] [address] [place], [address] RBC (Bld) [#/Vol] 3.23 10*6/uL Low 4.6-6.2 [facility] Comment on above: Performed By: #### L 100.0100, L504.2610, L100.9950, L503.6550, L500.4050, L503.6030 ####[facility] [address] [place], [address] RDW SD 41.4 fl Normal 35.1-43.9 [facility] Comment on above: Performed By: #### L 100.0100, L504.2610, L100.9950, L503.6550, L500.4050, L503.6030 ####[facility] [address] [place], [address] WBC (Bld) [#/Vol] 7.2 10*3/uL Normal 4.4-11.0 [facility] Comment on above: Performed By: #### L 100.0100, L504.2610, L100.9950, L503.6550, L500.4050, L503.6030 ####[facility] [address] [place], [address] Calculated total iron bindin g capacityOrdered By: Andre Duarte on 05-28-2024 Total Iron Binding Capacity 268 ug/dL 250-450 [facility] Carbon dioxide, total [Moles /volume] in Central venous bloodOrdered By: Andre Duarte on 05-28-2024 CO2 [Moles/Vol] 23.6 mmol/L 21.0-32.0 [facility] Chloride assayOrdered By: Anabell Duarte on 05-28-2024 Chloride [Moles/Vol] 105 mmol/L 98-108 [facility] Comprehensive Metabolic Prof ilon 05-28-2024 Albumin [Mass/Vol] 4.1 g/dL Normal 3.4-4.8 [facility] Comment on above: Performed By: #### L 100.0100, L504.2610, L100.9950, L503.6550, L500.4050, L503.6030 ####[facility] [address] [place], [address] Albumin/Globulin [Mass ratio] 1.3 {ratio} Normal 0.9-2.4 [facility] Comment on above: Performed By: #### L 100.0100, L504.2610, L100.9950, L503.6550, L500.4050, L503.6030 ####[facility] [address] [place], [address] ALK PHOS 67 U/L Normal 40-129 [facility] Comment on above: Performed By: #### L 100.0100, L504.2610, L100.9950, L503.6550, L500.4050, L503.6030 ####[facility] [address] [place], [address] ALT [Catalytic activity/Vol] 17 U/L Normal <=46 [facility] Comment on above: Performed By: #### L 100.0100, L504.2610, L100.9950, L503.6550, L500.4050, L503.6030 ####[facility] [address] [place], [address] AST [Catalytic activity/Vol] 16 U/L Normal <=37 [facility] Comment on above: Performed By: #### L 100.0100, L504.2610, L100.9950, L503.6550, L500.4050, L503.6030 ####[facility] [address] [place], [address] Bilirubin [Mass/Vol] 0.21 mg/dL Normal 0.00-1.30 [facility] Comment on above: Performed By: #### L 100.0100, L504.2610, L100.9950, L503.6550, L500.4050, L503.6030 ####[facility] [address] [place], [address] BUN/CRE 31.3 RATIO High 10-20 [facility] Comment on above: Performed By: #### L 100.0100, L504.2610, L100.9950, L503.6550, L500.4050, L503.6030 ####[facility] [address], [address] Calcium [Mass/Vol] 9.7 mg/dL Normal 7.6-11.0 [facility] Comment on above: Performed By: #### L 100.0100, L504.2610, L100.9950, L503.6550, L500.4050, L503.6030 ####[facility] [address] [place], [address] Chloride [Moles/Vol] 105 mmol/L Normal 98-108 [facility] Comment on above: Performed By: #### L 100.0100, L504.2610, L100.9950, L503.6550, L500.4050, L503.6030 ####[facility] [address], [address] CO2 [Moles/Vol] 23.6 mmol/L Normal 21.0-32.0 [facility] Comment on above: Performed By: #### L 100.0100, L504.2610, L100.9950, L503.6550, L500.4050, L503.6030 ####[facility] [address] [place], [address] Creatinine [Mass/Vol] 3.09 mg/dL High 0.70-1.20 [facility] Comment on above: Performed By: #### L 100.0100, L504.2610, L100.9950, L503.6550, L500.4050, L503.6030 ####[facility] [address] [place], [address] ECRCL 17.24 ml/min Low 50-250 [facility] Comment on above: Performed By: #### L 100.0100, L504.2610, L100.9950, L503.6550, L500.4050, L503.6030 ####[facility] [address] [place], [address] GAP 14 Normal 5-15 [facility] Comment on above: Performed By: #### L 100.0100, L504.2610, L100.9950, L503.6550, L500.4050, L503.6030 ####[facility] [address] [place], [address] GFR/1.73 sq M.predicted among non-blacks MDRD (S/P/Bld) [Vol rate/Area] 19 mL/min/{1.73_m2} Low >60 [facility] Comment on above: Result Comment: mL/m in/1.73m2 CKD-EPI Creatinine Equation (2020) Performed By: #### L 100.0100, L504.2610, L100.9950, L503.6550, L500.4050, L503.6030 ####[facility] [address] [place], [address] Globulin (S) [Mass/Vol] 3.2 g/dL Normal 2.2-4.2 [facility] Comment on above: Performed By: #### L 100.0100, L504.2610, L100.9950, L503.6550, L500.4050, L503.6030 ####[facility] [address] [place], [address] Glucose [Mass/Vol] 70 mg/dL Normal 70-99 [facility] Comment on above: Performed By: #### L 100.0100, L504.2610, L100.9950, L503.6550, L500.4050, L503.6030 ####[facility] [address] [place], [address] Potassium [Moles/Vol] 4.7 mmol/L Normal 3.3-5.1 [facility] Comment on above: Performed By: #### L 100.0100, L504.2610, L100.9950, L503.6550, L500.4050, L503.6030 ####[facility] [address] [place], [address] Sodium [Moles/Vol] 143 mmol/L Normal 133-145 [facility] Comment on above: Performed By: #### L 100.0100, L504.2610, L100.9950, L503.6550, L500.4050, L503.6030 ####[facility] [address] [place], [address] T PROT 7.2 g/dL Normal 5.9-8.4 [facility] Comment on above: Performed By: #### L 100.0100, L504.2610, L100.9950, L503.6550, L500.4050, L503.6030 ####[facility] [address] [place], [address] Urea nitrogen [Mass/Vol] 97 mg/dL High 4-19 [facility] Comment on above: Performed By: #### L 100.0100, L504.2610, L100.9950, L503.6550, L500.4050, L503.6030 ####[facility] [address] [place], [address] Eosinophil percentageOrdered By: Andre Duarte on 05-28-2024 Eosinophils/100 WBC (Bld) 5.0 % 0-5 [facility] Erythrocyte distribution wid th (RBC) [Ratio]Ordered By: Andre Gerald on 05-28-2024 Erythrocyte distribution width (RBC) [Entitic vol] 41.4 fL 35.1-43.9 [facility] Erythrocyte distribution wid th ratioOrdered By: [facility] on 05-28-2024 Erythrocyte distribution width (RBC) [Ratio] 11.9 % 11.6-14.6 [facility] Erythrocyte distribution wid th standard deviationOrdered By: [facility] on 05-28-2024 Erythrocyte distribution width (RBC) [Ratio] 41.4 fl 35.1-43.9 [facility] Estimation of creatinine timur aranceOrdered By: Andre Duarte on 05-28-2024 Estimated Creatinine Clearance Calc 17.24 ml/min Low 50-250 [facility] Ferritinon 05-28-2024 Ferritin [Mass/Vol] 55 ng/mL Normal 37-417 [facility] Comment on above: Performed By: #### L 100.0100, L504.2610, L100.9950, L503.6550, L500.4050, L503.6030 ####[facility] [address] [place], [address] GFR/1.73 sq M.predicted kaveh g non-blacks MDRD (S/P/Bld) [Vol rate/Area]Ordered By: Andre Duarte on 05-28-2024 Estimated GFR (MDRD) Non-Af Amer 19 Low >60 [facility] Comment on above: mL/min/1.73m2 CKD-EP I Creatinine Equation (2020) Glomerular filtration rate ( GFR) estimation/1.73 sq m using serum, plasma, or whole bOrdered By: Andre Duarte on 05-28-2024 GFR/1.73 sq M.predicted among non-blacks MDRD (S/P/Bld) [Vol rate/Area] 19 mL/min/{1.73_m2} Low >60 [facility] Comment on above: mL/min/1.73m2 CKD-EP I Creatinine Equation (2020) Hematocrit Auto (Bld) [Volum e fraction]Ordered By: Andre Duarte on 05-28-2024 Hematocrit (Bld) [Volume fraction] 30.5 % Low 40-54 [facility] Hemoglobin (Reticulocytes) [ Entitic mass]Ordered By: Andre Duarte on 05-28-2024 Reticulocyte Hemoglobin Equivalent 33.4 pg 30-35 [facility] Hemoglobin measurementOrdere d By: Andre Duarte on 05-28-2024 Hemoglobin (Bld) [Mass/Vol] 9.9 g/dL Low 13.0-16.5 [facility] Immature granulocytes/100 WB C Auto (Bld)Ordered By: Andre Duarte on 05-28-2024 Immature granulocytes/100 WBC (Bld) 0.300 % 0.0-0.9 [facility] Comment on above: IG% - Immature Granu locytes (promyelocytes, myelocytes and metamyelocytes) > 1% indicates that a LEFT SHIFT is Present. Immature reticulocyte fracti onOrdered By: Andre Duarte on 05-28-2024 Immature Reticulocyte Fraction 8.10 % 3.00-15.90 [facility] Iron (Unsp spec) [Mass/Mass] Ordered By: Andre Duarte on 05-28-2024 Iron [Mass/Vol] 69 ug/dL 65-175 [facility] Iron measurement (mass/mass) Ordered By: Andre Duarte on 05-28-2024 Iron (Unsp spec) [Mass/Mass] 69 ug/dL 65-175 [facility] Iron saturation [Mass fracti on]Ordered By: Andre Duarte on 05-28-2024 Iron Saturation 26.0 % 9-55 [facility] Iron+Iron Binding Capacityon 05-28-2024 Iron [Mass/Vol] 69 ug/dL Normal 65-175 [facility] Comment on above: Performed By: #### L 100.0100, L504.2610, L100.9950, L503.6550, L500.4050, L503.6030 ####[facility] [address] [place], [address] IRON SATURATION 26.0 Normal 9-55 [facility] Comment on above: Performed By: #### L 100.0100, L504.2610, L100.9950, L503.6550, L500.4050, L503.6030 ####[facility] [address] [place], [address] TIBC 268 ug/dL Normal 250-450 [facility] Comment on above: Performed By: #### L 100.0100, L504.2610, L100.9950, L503.6550, L500.4050, L503.6030 ####[facility] [address] [place], [address] UIBC 199 ug/dL Low 228-428 [facility] Comment on above: Performed By: #### L 100.0100, L504.2610, L100.9950, L503.6550, L500.4050, L503.6030 ####[facility] [address] [place], [address] LDHon 05-28-2024 LDH 153 U/L Normal 87-241 [facility] Comment on above: Order Comment: 1 Performed By: #### L 100.0100, L504.2610, L100.9950, L503.6550, L500.4050, L503.6030 ####[facility] [address] [place], [address] Laboratory - Chemistry and C hemistry - challengeOrdered By: Andre Duarte on 05-28-2024 AST [Catalytic activity/Vol] 16 U/L <38 [facility] Lactate dehydrogenase (LDH) measurementOrdered By: Andre Duarte on 05-28-2024 LDH [Catalytic activity/Vol] 153 U/L 87-241 [facility] Lymphocytes Auto (Unsp spec) [#/Vol]Ordered By: Andre Duarte on 05-28-2024 Lymphocytes (Bld) [#/Vol] 1.74 10*3/uL 0.83-4.51 [facility] Lymphocytes/100 WBC Auto (Un sp spec)Ordered By: Andre Duarte on 05-28-2024 Lymphocytes/100 WBC (Bld) 24.2 % 19-41 [facility] MCV (mean corpuscular volume ) determinationOrdered By: Andre Duarte on 05-28-2024 MCV (RBC) [Entitic vol] 94.4 fL High 80-94 [facility] Mean corpuscular hemoglobin (MCH) determinationOrdered By: Andre Duarte on 05-28-2024 MCH (RBC) [Entitic mass] 30.7 pg 27.0-32.0 [facility] Mean corpuscular hemoglobin concentration (MCHC) determinationOrdered By: Andre Duarte on 05-28-2024 MCHC (RBC) [Mass/Vol] 32.5 g/dL 32-36 [facility] Mean platelet volume determi nationOrdered By: Andre Duarte on 05-28-2024 Platelet mean volume (Bld) [Entitic vol] 10.8 fL 6.2-12.0 [facility] Monocyte percentageOrdered B y: Andre Duarte on 05-28-2024 Monocytes/100 WBC (Bld) 8.2 % 0-10 [facility] Neutrophil percentageOrdered By: Andre Duarte on 05-28-2024 Neutrophils/100 WBC (Bld) 61.7 % 47-70 [facility] No Panel InformationOrdered By: Andre Duarte on 05-28-2024 Unsaturated Iron Binding Capacity 199 ug/dL Low 228-428 [facility] Nucleated red blood cell per centageOrdered By: Andre Duarte on 05-28-2024 Nucleated RBC/100 WBC (Bld) [Ratio] 0 % 0-5 [facility] Oncology Visit Reporton 05-10 Oncology Visit Report Normal [facility] Platelet countOrdered By: Anabell Duarte on 05-28-2024 Platelets (Bld) [#/Vol] 128 10*3/uL Low 150-450 [facility] Potassium (Unsp spec) [Mass/ Vol]Ordered By: Andre Duarte on 05-28-2024 Potassium [Moles/Vol] 4.7 mmol/L 3.3-5.1 [facility] Potassium measurement (mass/ volume)Ordered By: Andre Duarte on 05-28-2024 Potassium (Unsp spec) [Mass/Vol] 4.7 mmol/L 3.3-5.1 [facility] RBC Auto (Bld) [#/Vol]Ordere d By: Andre Duarte on 05-28-2024 RBC (Bld) [#/Vol] 3.23 10*6/uL Low 4.6-6.2 [facility] Retic Panelon 05-28-2024 IM RET FRACTION 8.10 Normal 3.00-15.90 [facility] Comment on above: Performed By: #### L 100.0100, L504.2610, L100.9950, L503.6550, L500.4050, L503.6030 ####[facility] [address] [place], [address] RET-HE 33.4 pg Normal 30-35 [facility] Comment on above: Performed By: #### L 100.0100, L504.2610, L100.9950, L503.6550, L500.4050, L503.6030 ####[facility] [address] [place], [address] Retic Count 1.39 Normal 0.5-1.5 [facility] Comment on above: Performed By: #### L 100.0100, L504.2610, L100.9950, L503.6550, L500.4050, L503.6030 ####[facility] [address] [place], [address] Reticulocyte hemoglobin equi valent (RET-He) measurementOrdered By: Andre Duarte on 05-28-2024 Hemoglobin (Reticulocytes) [Entitic mass] 33.4 pg 30-35 [facility] Reticulocytes Auto (Bld) [#/ Vol]Ordered By: Andre Duarte on 05-28-2024 Reticulocyte Count 1.39 % 0.5-1.5 [facility] Reticulocytes/100 RBC (Bld) 1.39 % 0.5-1.5 [facility] Serum creatinine measurement (mass/volume)Ordered By: Andre Duarte on 05-28-2024 Creatinine [Mass/Vol] 3.09 mg/dL High 0.70-1.20 [facility] Serum globulin measurementOr dered By: Andre Duarte on 05-28-2024 Globulin (S) [Mass/Vol] 3.2 g/dL 2.2-4.2 [facility] Serum glucose measurement (m ass/volume)Ordered By: Andre Duarte on 05-28-2024 Glucose [Mass/Vol] 70 mg/dL 70-99 [facility] Serum or plasma alanine duque otransferase (ALT) measurementOrdered By: Andre Duarte on 05-28-2024 ALT [Catalytic activity/Vol] 17 U/L <47 [facility] Serum or plasma albumin elmira urement (mass/volume)Ordered By: Andre Duarte on 05-28-2024 Albumin [Mass/Vol] 4.1 g/dL 3.4-4.8 [facility] Serum or plasma albumin/glob ulin mass ratioOrdered By: Andre Duarte on 05-28-2024 Albumin/Globulin [Mass ratio] 1.3 {ratio} 0.9-2.4 [facility] Serum or plasma alkaline lissa sphatase measurementOrdered By: Andre Duarte on 05-28-2024 ALP [Catalytic activity/Vol] 67 U/L 40-129 [facility] Serum or plasma calcium elmira urement (mass/volume)Ordered By: Andre Duarte on 05-28-2024 Calcium [Mass/Vol] 9.7 mg/dL 7.6-11.0 [facility] Serum or plasma ferritin latricia surement (mass/volume)Ordered By: Andre Duarte on 05-28-2024 Ferritin [Mass/Vol] 55 ng/mL 37-417 [facility] Serum or plasma iron saturat ion measurement (mass fraction)Ordered By: Andre Duarte on 05-28-2024 Iron saturation [Mass fraction] 26.0 % 9-55 [facility] Serum or plasma urea nitroge n measurement (mass/volume)Ordered By: Andre Duarte on 05-28-2024 Urea nitrogen [Mass/Vol] 97 mg/dL High 4-19 [facility] Sodium levelOrdered By: Tray Duarte on 05-28-2024 Sodium [Moles/Vol] 143 mmol/L 133-145 [facility] Total proteinOrdered By: Doc Duarte on 05-28-2024 Protein [Mass/Vol] 7.2 g/dL 5.9-8.4 [facility] White blood cell (WBC) count Ordered By: Andre Duarte on 05-28-2024 WBC (Bld) [#/Vol] 7.2 10*3/uL 4.4-11.0 [facility] Oncology Visit Reporton 03-13 Oncology Visit Report Normal [facility] Erythropoietinon 03-26-2024 ERYTHROPOIETIN 15.0 mIU/mL Normal 2.6-18.5 [facility] Comment on above: Result Comment: Ozsale DxI 800 Immunoassay SystemValues obtained with different assay methods or kits cannotbe used interchangeably. Results cannot be interpreted asabsolute evidence of the presence or absence of malignantdisease.Performed at: [place] [id number] Director: Tanmay Damon PhD, Phone: [phone] Performed By: #### L 500.4050, L100.9950, L503.6030, L3100.1350, L501.5200, L501.6710, L100.0100, L101.9900, L501.2300, L503.0105, L506.0250, L504.2610, L503.6550 ####[facility] [address] [place], [address] C-reactive protein measureme nt by high sensitivity methodOrdered By: Andre Duarte on 03-24-2024 C-Reactive Protein Extended Range < 2.90 mg/L 0.0-3.0 [facility] Comment on above: C-Reactive Protein ( CRP) provides useful information for thediagnosis, therapy and monitoring of inflammatory processesand associated diseases. For the evaluation of Relative Riskfor Cardiovascular Disease, a High Sensitivity CRP (HSCRP)should be ordered. CBC W/Diff, Automatedon 03-12 Absolute Lymph 1.11 X10 3/uL Normal 0.83-4.51 [facility] Comment on above: Performed By: #### L 500.4050, L100.9950, L503.6030, L3100.1350, L501.5200, L501.6710, L100.0100, L101.9900, L501.2300, L503.0105, L506.0250, L504.2610, L503.6550 ####[facility] [address] [place], [place], [phone] Absolute Neut 4.8 X10 3/uL Normal 2.0-7.7 [facility] Comment on above: Performed By: #### L 500.4050, L100.9950, L503.6030, L3100.1350, L501.5200, L501.6710, L100.0100, L101.9900, L501.2300, L503.0105, L506.0250, L504.2610, L503.6550 ####[facility] [address] [place], [place], [phone] Basophils/100 WBC (Bld) 0.6 % Normal 0-1 [facility] Comment on above: Performed By: #### L 500.4050, L100.9950, L503.6030, L3100.1350, L501.5200, L501.6710, L100.0100, L101.9900, L501.2300, L503.0105, L506.0250, L504.2610, L503.6550 ####[facility] [address] [place], [address] Eosinophils/100 WBC (Bld) 4.3 % Normal 0-5 [facility] Comment on above: Performed By: #### L 500.4050, L100.9950, L503.6030, L3100.1350, L501.5200, L501.6710, L100.0100, L101.9900, L501.2300, L503.0105, L506.0250, L504.2610, L503.6550 ####[facility] [address] [place], [phone] Erythrocyte distribution width (RBC) [Ratio] 13.5 % Normal 11.6-14.6 [facility] Comment on above: Performed By: #### L 500.4050, L100.9950, L503.6030, L3100.1350, L501.5200, L501.6710, L100.0100, L101.9900, L501.2300, L503.0105, L506.0250, L504.2610, L503.6550 ####[facility] [address] [place], [phone]) Hematocrit (Bld) [Volume fraction] 27.4 % Low 40-54 [facility] Comment on above: Performed By: #### L 500.4050, L100.9950, L503.6030, L3100.1350, L501.5200, L501.6710, L100.0100, L101.9900, L501.2300, L503.0105, L506.0250, L504.2610, L503.6550 ####[facility] [address] [facility] [place], [phone]) Hemoglobin (Bld) [Mass/Vol] 8.6 g/dL Low 13.0-16.5 [facility] Comment on above: Performed By: #### L 500.4050, L100.9950, L503.6030, L3100.1350, L501.5200, L501.6710, L100.0100, L101.9900, L501.2300, L503.0105, L506.0250, L504.2610, L503.6550 ####[facility] [address] [place], [address] IG% 0.300 Normal 0.0-0.9 [facility] Comment on above: Result Comment: IG% - Immature Granulocytes (promyelocytes, myelocytes andmetamyelocytes) > 1% indicates that a LEFT SHIFT is Present. Performed By: #### L 500.4050, L100.9950, L503.6030, L3100.1350, L501.5200, L501.6710, L100.0100, L101.9900, L501.2300, L503.0105, L506.0250, L504.2610, L503.6550 ####[facility] [address] [place], [address] Lymphocytes/100 WBC (Bld) 16.5 % Low 19-41 [facility] Comment on above: Performed By: #### L 500.4050, L100.9950, L503.6030, L3100.1350, L501.5200, L501.6710, L100.0100, L101.9900, L501.2300, L503.0105, L506.0250, L504.2610, L503.6550 ####[facility] [address] [place], [address] MCH (RBC) [Entitic mass] 30.4 pg Normal 27.0-32.0 [facility] Comment on above: Performed By: #### L 500.4050, L100.9950, L503.6030, L3100.1350, L501.5200, L501.6710, L100.0100, L101.9900, L501.2300, L503.0105, L506.0250, L504.2610, L503.6550 ####[facility] [address] [place], [address] MCHC (RBC) [Mass/Vol] 31.4 g/dL Low 32-36 [facility] Comment on above: Performed By: #### L 500.4050, L100.9950, L503.6030, L3100.1350, L501.5200, L501.6710, L100.0100, L101.9900, L501.2300, L503.0105, L506.0250, L504.2610, L503.6550 ####[facility] [address] [place], [address] MCV (RBC) [Entitic vol] 96.8 fL High 80-94 [facility] Comment on above: Performed By: #### L 500.4050, L100.9950, L503.6030, L3100.1350, L501.5200, L501.6710, L100.0100, L101.9900, L501.2300, L503.0105, L506.0250, L504.2610, L503.6550 ####[facility] [address], [address] Monocytes/100 WBC (Bld) 6.8 % Normal 0-10 [facility] Comment on above: Performed By: #### L 500.4050, L100.9950, L503.6030, L3100.1350, L501.5200, L501.6710, L100.0100, L101.9900, L501.2300, L503.0105, L506.0250, L504.2610, L503.6550 ####[facility] [address] [place], [address] Neutrophils/100 WBC (Bld) 71.5 % High 47-70 [facility] Comment on above: Performed By: #### L 500.4050, L100.9950, L503.6030, L3100.1350, L501.5200, L501.6710, L100.0100, L101.9900, L501.2300, L503.0105, L506.0250, L504.2610, L503.6550 ####[facility] [address] [place], [address] Nucleated RBC (Bld) [#/Vol] 0 10*3/uL Normal 0-5 [facility] Comment on above: Performed By: #### L 500.4050, L100.9950, L503.6030, L3100.1350, L501.5200, L501.6710, L100.0100, L101.9900, L501.2300, L503.0105, L506.0250, L504.2610, L503.6550 ####[facility] [address] [place], [place], [phone] Platelet mean volume (Bld) [Entitic vol] 10.8 fL Normal 6.2-12.0 [facility] Comment on above: Performed By: #### L 500.4050, L100.9950, L503.6030, L3100.1350, L501.5200, L501.6710, L100.0100, L101.9900, L501.2300, L503.0105, L506.0250, L504.2610, L503.6550 ####[facility] [address] [place], [address] Platelets (Bld) [#/Vol] 135 10*3/uL Low 150-450 [facility] Comment on above: Performed By: #### L 500.4050, L100.9950, L503.6030, L3100.1350, L501.5200, L501.6710, L100.0100, L101.9900, L501.2300, L503.0105, L506.0250, L504.2610, L503.6550 ####[facility] [address] [place], [address] RBC (Bld) [#/Vol] 2.83 10*6/uL Low 4.6-6.2 [facility] Comment on above: Performed By: #### L 500.4050, L100.9950, L503.6030, L3100.1350, L501.5200, L501.6710, L100.0100, L101.9900, L501.2300, L503.0105, L506.0250, L504.2610, L503.6550 ####[facility] [address] [place], [address] RDW SD 47.8 fl High 35.1-43.9 [facility] Comment on above: Performed By: #### L 500.4050, L100.9950, L503.6030, L3100.1350, L501.5200, L501.6710, L100.0100, L101.9900, L501.2300, L503.0105, L506.0250, L504.2610, L503.6550 ####[facility] [address] [place], [place], [phone]) WBC (Bld) [#/Vol] 6.7 10*3/uL Normal 4.4-11.0 [facility] Comment on above: Performed By: #### L 500.4050, L100.9950, L503.6030, L3100.1350, L501.5200, L501.6710, L100.0100, L101.9900, L501.2300, L503.0105, L506.0250, L504.2610, L503.6550 ####[facility] [address] [place], [place], [phone] CRPon 03-24-2024 C-REACTIVE PROT < 2.90 Normal 0.0-3.0 [facility] Comment on above: Order Comment: UNKNO WN1N Result Comment: C-Re active Protein (CRP) provides useful information for thediagnosis, therapy and monitoring of inflammatory processesand associated diseases. For the evaluation of Relative Riskfor Cardiovascular Disease, a High Sensitivity CRP (HSCRP)should be ordered. Performed By: #### L 500.4050, L100.9950, L503.6030, L3100.1350, L501.5200, L501.6710, L100.0100, L101.9900, L501.2300, L503.0105, L506.0250, L504.2610, L503.6550 ####[facility] [address] [place], [place], [phone] Comprehensive Metabolic Prof [facility] 03-24-2024 Albumin [Mass/Vol] 3.5 g/dL Normal 3.2-5.0 [facility] Comment on above: Order Comment: UNKNO WN1N Performed By: #### L 500.4050, L100.9950, L503.6030, L3100.1350, L501.5200, L501.6710, L100.0100, L101.9900, L501.2300, L503.0105, L506.0250, L504.2610, L503.6550 ####[facility] [address] [place], [place], [phone] Albumin/Globulin [Mass ratio] 0.9 {ratio} Normal 0.9-2.4 [facility] Comment on above: Order Comment: UNKNO WN1N Performed By: #### L 500.4050, L100.9950, L503.6030, L3100.1350, L501.5200, L501.6710, L100.0100, L101.9900, L501.2300, L503.0105, L506.0250, L504.2610, L503.6550 ####[facility] [address] [place], [place], [phone] ALK P 63 U/L Normal 45-117 [facility] Comment on above: Order Comment: UNKNO WN1N Performed By: #### L 500.4050, L100.9950, L503.6030, L3100.1350, L501.5200, L501.6710, L100.0100, L101.9900, L501.2300, L503.0105, L506.0250, L504.2610, L503.6550 ####[facility] [address] [place], [place], [phone] ALT [Catalytic activity/Vol] 22 U/L Normal 16-61 [facility] Comment on above: Order Comment: UNKNO WN1N Performed By: #### L 500.4050, L100.9950, L503.6030, L3100.1350, L501.5200, L501.6710, L100.0100, L101.9900, L501.2300, L503.0105, L506.0250, L504.2610, L503.6550 ####[facility] [address] [place], [address] AST [Catalytic activity/Vol] 13 U/L Low 15-37 [facility] Comment on above: Order Comment: UNKNO WN1N Performed By: #### L 500.4050, L100.9950, L503.6030, L3100.1350, L501.5200, L501.6710, L100.0100, L101.9900, L501.2300, L503.0105, L506.0250, L504.2610, L503.6550 ####[facility] [address] [place], [place], [phone] Bilirubin [Mass/Vol] 0.40 mg/dL Normal 0.20-1.00 [facility] Comment on above: Order Comment: UNKNO WN1N Result Comment: For patients on eltrombopag therapy, use of Dimension Burt TBIL is not recommended. Performed By: #### L 500.4050, L100.9950, L503.6030, L3100.1350, L501.5200, L501.6710, L100.0100, L101.9900, L501.2300, L503.0105, L506.0250, L504.2610, L503.6550 ####[facility] [address] [place], [place], [phone]) BUN/CRE 35.6 RATIO High 10-20 [facility] Comment on above: Order Comment: UNKNO WN1N Performed By: #### L 500.4050, L100.9950, L503.6030, L3100.1350, L501.5200, L501.6710, L100.0100, L101.9900, L501.2300, L503.0105, L506.0250, L504.2610, L503.6550 ####[facility] [address] [place], [place], [phone] CA,Total 10.0 mg/dL Normal 8.5-10.1 [facility] Comment on above: Order Comment: UNKNO WN1N Performed By: #### L 500.4050, L100.9950, L503.6030, L3100.1350, L501.5200, L501.6710, L100.0100, L101.9900, L501.2300, L503.0105, L506.0250, L504.2610, L503.6550 ####[facility] [address] [place], [place], [phone] Chloride [Moles/Vol] 110 mmol/L High 98-107 [facility] Comment on above: Order Comment: UNKNO WN1N Performed By: #### L 500.4050, L100.9950, L503.6030, L3100.1350, L501.5200, L501.6710, L100.0100, L101.9900, L501.2300, L503.0105, L506.0250, L504.2610, L503.6550 ####[facility] [address] [place], [place], [phone] CO2 [Moles/Vol] 28.0 mmol/L Normal 21.0-32.0 [facility] Comment on above: Order Comment: UNKNO WN1N Performed By: #### L 500.4050, L100.9950, L503.6030, L3100.1350, L501.5200, L501.6710, L100.0100, L101.9900, L501.2300, L503.0105, L506.0250, L504.2610, L503.6550 ####[facility] [address] [place], [place], [phone] Creatinine [Mass/Vol] 2.53 mg/dL High 0.70-1.30 [facility] Comment on above: Order Comment: UNKNO WN1N Result Comment: The validity of the calculated GFR GFRAA in patients over70 years has not been determined. Clinical correlation isessential. Performed By: #### L 500.4050, L100.9950, L503.6030, L3100.1350, L501.5200, L501.6710, L100.0100, L101.9900, L501.2300, L503.0105, L506.0250, L504.2610, L503.6550 ####[facility] [address] [place], [place], [phone] EST GFR - AA 31 mL/min Low >60 [facility] Comment on above: Order Comment: UNKNO WN1N Result Comment: Afri can Singaporean GFR Calc Performed By: #### L 500.4050, L100.9950, L503.6030, L3100.1350, L501.5200, L501.6710, L100.0100, L101.9900, L501.2300, L503.0105, L506.0250, L504.2610, L503.6550 ####[facility] [address] [place], [place], [phone] GAP 6 Normal 5-15 [facility] Comment on above: Order Comment: UNKNO WN1N Performed By: #### L 500.4050, L100.9950, L503.6030, L3100.1350, L501.5200, L501.6710, L100.0100, L101.9900, L501.2300, L503.0105, L506.0250, L504.2610, L503.6550 ####[facility] [address] [place], [place], [phone] GFR/1.73 sq M.predicted among non-blacks MDRD (S/P/Bld) [Vol rate/Area] 26 mL/min/{1.73_m2} Low >60 [facility] Comment on above: Order Comment: UNKNO WN1N Result Comment: Non- GFR Calc Performed By: #### L 500.4050, L100.9950, L503.6030, L3100.1350, L501.5200, L501.6710, L100.0100, L101.9900, L501.2300, L503.0105, L506.0250, L504.2610, L503.6550 ####[facility] [address] [place], [place], [phone] Globulin (S) [Mass/Vol] 3.7 g/dL Normal 2.2-4.2 [facility] Comment on above: Order Comment: UNKNO WN1N Performed By: #### L 500.4050, L100.9950, L503.6030, L3100.1350, L501.5200, L501.6710, L100.0100, L101.9900, L501.2300, L503.0105, L506.0250, L504.2610, L503.6550 ####[facility] [address] [place], [place], [phone] Glucose [Mass/Vol] 83 mg/dL Normal 74-106 [facility] Comment on above: Order Comment: UNKNO WN1N Performed By: #### L 500.4050, L100.9950, L503.6030, L3100.1350, L501.5200, L501.6710, L100.0100, L101.9900, L501.2300, L503.0105, L506.0250, L504.2610, L503.6550 ####[facility] [address] [place], [address] Potassium [Moles/Vol] 4.6 mmol/L Normal 3.5-5.1 [facility] Comment on above: Order Comment: UNKNO WN1N Performed By: #### L 500.4050, L100.9950, L503.6030, L3100.1350, L501.5200, L501.6710, L100.0100, L101.9900, L501.2300, L503.0105, L506.0250, L504.2610, L503.6550 ####[facility] [address] [place], [address] Sodium [Moles/Vol] 143 mmol/L Normal 136-145 [facility] Comment on above: Order Comment: UNKNO WN1N Performed By: #### L 500.4050, L100.9950, L503.6030, L3100.1350, L501.5200, L501.6710, L100.0100, L101.9900, L501.2300, L503.0105, L506.0250, L504.2610, L503.6550 ####[facility] [address] [place], [address] T PROT 7.2 g/dL Normal 6.4-8.2 [facility] Comment on above: Order Comment: UNKNO WN1N Performed By: #### L 500.4050, L100.9950, L503.6030, L3100.1350, L501.5200, L501.6710, L100.0100, L101.9900, L501.2300, L503.0105, L506.0250, L504.2610, L503.6550 ####[facility] [address] [place], [place], [phone] Urea nitrogen [Mass/Vol] 90 mg/dL High 7-18 [facility] Comment on above: Order Comment: UNKNO WN1N Performed By: #### L 500.4050, L100.9950, L503.6030, L3100.1350, L501.5200, L501.6710, L100.0100, L101.9900, L501.2300, L503.0105, L506.0250, L504.2610, L503.6550 ####[facility] [address] [place], [place], [phone] Erythrocyte Sed Rateon 03-24 SED RATE 31 mm/hr High 0-20 [facility] Comment on above: Performed By: #### L 500.4050, L100.9950, L503.6030, L3100.1350, L501.5200, L501.6710, L100.0100, L101.9900, L501.2300, L503.0105, L506.0250, L504.2610, L503.6550 ####[facility] [address] [place], [place], [phone] Erythrocyte sedimentation ra teOrdered By: Andre Duarte on 03-24-2024 ESR (Bld) [Velocity] 31 mm/h [facility] 0-20 [facility] Erythropoietin (EPO) QnOrder ed By: Andre Duarte on 03-24-2024 Erythropoietin 15.0 mIU/mL 2.6-18.5 [facility] Comment on above: Pedro [employer] Uni[employer] el DxI 800 Immunoassay SystemValues obtained with different assay methods or kits cannotbe used interchangeably. Results cannot be interpreted asabsolute evidence of the presence or absence of malignantdisease.Performed at: - [facility] RehabilitationNzvxws[address]24 [place], [place] [id number] Director: Tanmay Dmaon PhD, Phone: [phone] Estimated glomerular filtrat ion rate (GFR) AmericanOrdered By: Andre Duarte on 03-24-2024 Estimated GFR (MDRD) Amer 31 mL/min Low >60 [facility] Comment on above: GFR Calc Ferritinon 03-24-2024 Ferritin [Mass/Vol] 43 ng/mL Normal 26-388 [facility] Comment on above: Order Comment: UNKNO WN1N Performed By: #### L 500.4050, L100.9950, L503.6030, L3100.1350, L501.5200, L501.6710, L100.0100, L101.9900, L501.2300, L503.0105, L506.0250, L504.2610, L503.6550 ####[facility] [address] [place], [place], [phone] Folates, (Folic Acid)on 03-12 FOLATES 11.90 ng/mL Normal 3.1-55.4 [facility] Comment on above: Order Comment: UNKNO WN1N Performed By: #### L 500.4050, L100.9950, L503.6030, L3100.1350, L501.5200, L501.6710, L100.0100, L101.9900, L501.2300, L503.0105, L506.0250, L504.2610, L503.6550 ####[facility] [address] [place], [address] Folic acid measurementOrdere d By: Andre Duarte on 03-24-2024 Folate 11.90 ng/mL 3.1-55.4 [facility] Iron+Iron Binding Capacityon 03-24-2024 Iron [Mass/Vol] 44 ug/dL Low 65-175 [facility] Comment on above: Order Comment: UNKNO WN1N Performed By: #### L 500.4050, L100.9950, L503.6030, L3100.1350, L501.5200, L501.6710, L100.0100, L101.9900, L501.2300, L503.0105, L506.0250, L504.2610, L503.6550 ####[facility] [address] [place], [place], [phone] IRON SATURATION 15.0 Normal 15.0-55.0 [facility] Comment on above: Order Comment: UNKNO WN1N Performed By: #### L 500.4050, L100.9950, L503.6030, L3100.1350, L501.5200, L501.6710, L100.0100, L101.9900, L501.2300, L503.0105, L506.0250, L504.2610, L503.6550 ####[facility] [address] [place], [place], [phone] TIBC 294 ug/dL Normal 250-450 [facility] Comment on above: Order Comment: UNKNO WN1N Performed By: #### L 500.4050, L100.9950, L503.6030, L3100.1350, L501.5200, L501.6710, L100.0100, L101.9900, L501.2300, L503.0105, L506.0250, L504.2610, L503.6550 ####[facility] [address] [place], [place], [phone] LDHon 03-24-2024 LDH 143 U/L Normal 87-241 [facility] Comment on above: Order Comment: UNKNO WN1N Performed By: #### L 500.4050, L100.9950, L503.6030, L3100.1350, L501.5200, L501.6710, L100.0100, L101.9900, L501.2300, L503.0105, L506.0250, L504.2610, L503.6550 ####[facility] [address] [place], [address] Magnesiumon 03-24-2024 Magnesium [Mass/Vol] 1.7 mg/dL Normal 1.6-2.6 [facility] Comment on above: Order Comment: UNKNO WN1N Performed By: #### L 500.4050, L100.9950, L503.6030, L3100.1350, L501.5200, L501.6710, L100.0100, L101.9900, L501.2300, L503.0105, L506.0250, L504.2610, L503.6550 ####[facility] [address] [place], [place], [phone] Magnesium measurementOrdered By: Andre Duarte on 03-24-2024 Magnesium [Mass/Vol] 1.7 mg/dL 1.6-2.6 [facility] Oncology Visit Reporton 03-12 Oncology Visit Report Normal [facility] Phosphoruson 03-24-2024 Phosphate [Mass/Vol] 4.0 mg/dL Normal 2.5-4.9 [facility] Comment on above: Order Comment: UNKNO WN1N Performed By: #### L 500.4050, L100.9950, L503.6030, L3100.1350, L501.5200, L501.6710, L100.0100, L101.9900, L501.2300, L503.0105, L506.0250, L504.2610, L503.6550 ####[facility] [address] [place], [place], [id number] Phosphorus measurementOrdere d By: Andre Duarte on 03-24-2024 Phosphorus Level 4.0 mg/dL 2.5-4.9 [facility] Retic Panelon 03-24-2024 IM RET FRACTION 20.20 High 3.00-15.90 [facility] Comment on above: Performed By: #### L 500.4050, L100.9950, L503.6030, L3100.1350, L501.5200, L501.6710, L100.0100, L101.9900, L501.2300, L503.0105, L506.0250, L504.2610, L503.6550 ####[facility] [address] [place], [address] RET-HE 32.7 pg Normal 30-35 [facility] Comment on above: Performed By: #### L 500.4050, L100.9950, L503.6030, L3100.1350, L501.5200, L501.6710, L100.0100, L101.9900, L501.2300, L503.0105, L506.0250, L504.2610, L503.6550 ####[facility] [address] [place], [address] Retic Count 4.14 High 0.5-1.5 [facility] Comment on above: Performed By: #### L 500.4050, L100.9950, L503.6030, L3100.1350, L501.5200, L501.6710, L100.0100, L101.9900, L501.2300, L503.0105, L506.0250, L504.2610, L503.6550 ####[facility] [address] [place], [address] Serum or plasma erythropoiet in (EPO) measurement (units/volume)Ordered By: Andre Duarte on 03-24-2024 Erythropoietin (EPO) Qn 15.0 mIU/mL 2.6-18.5 [facility] Comment on above: Pedro [employer] Uni[employer] el DxI 800 Immunoassay SystemValues obtained with different assay methods or kits cannotbe used interchangeably. Results cannot be interpreted asabsolute evidence of the presence or absence of malignantdisease.Performed at: [address] [id number] Director: Tanmay Damon PhD, Phone: [phone] Vitamin B12on 03-24-2024 Cobalamin (Vitamin B12) [Mass/Vol] 584 pg/mL Normal 211-911 [facility] Comment on above: Performed By: #### L 500.4050, L100.9950, L503.6030, L3100.1350, L501.5200, L501.6710, L100.0100, L101.9900, L501.2300, L503.0105, L506.0250, L504.2610, L503.6550 ####[facility] [address] [place], [address] Vitamin B12 measurementOrder ed By: Andre Duarte on 03-24-2024 Cobalamin (Vitamin B12) [Mass/Vol] 584 pg/mL 211-911 [facility] Gastroenterology Visit Repor ton 03-17-2024 Gastroenterology Visit Report Normal [facility] Absolute neutrophil countOrd ered By: Yuridia Hernandez on 03-14-2024 Neutrophils (Bld) [#/Vol] 4.5 10*3/uL 2.0-7.7 [facility] Basic Metabolic Profile (BMP )on 03-14-2024 BUN/CRE 28.6 RATIO High 10-20 [facility] Comment on above: Performed By: #### L 100.0100, L500.2500, L501.0900 ####[facility] [address] [place], [address] CA,Total 9.9 mg/dL Normal 8.5-10.1 [facility] Comment on above: Performed By: #### L 100.0100, L500.2500, L501.0900 ####[facility] [address] [place], [address] Chloride [Moles/Vol] 104 mmol/L Normal 98-107 [facility] Comment on above: Performed By: #### L 100.0100, L500.2500, L501.0900 ####[facility] [address] [place], [address] CO2 [Moles/Vol] 31.0 mmol/L Normal 21.0-32.0 [facility] Comment on above: Performed By: #### L 100.0100, L500.2500, L501.0900 ####[facility] [address] [place], [address] Creatinine [Mass/Vol] 2.94 mg/dL High 0.70-1.30 [facility] Comment on above: Result Comment: The validity of the calculated GFR GFRAA in patients over70 years has not been determined. Clinical correlation isessential. Performed By: #### L 100.0100, L500.2500, L501.0900 ####[facility] [address] [place], [address] EST GFR - AA 26 mL/min Low >60 [facility] Comment on above: Result Comment: Afri can [place] GFR Calc Performed By: #### L 100.0100, L500.2500, L501.0900 ####[facility] [address] [place], [address] GAP 6 Normal 5-15 [facility] Comment on above: Performed By: #### L 100.0100, L500.2500, L501.0900 ####[facility] [address] [place], [address] GFR/1.73 sq M.predicted among non-blacks MDRD (S/P/Bld) [Vol rate/Area] 22 mL/min/{1.73_m2} Low >60 [facility] Comment on above: Result Comment: Non- GFR Calc Performed By: #### L 100.0100, L500.2500, L501.0900 ####[facility] [address] [place], [address] Glucose [Mass/Vol] 290 mg/dL High 74-106 [facility] Comment on above: Result Comment: Gluc ose result greater than or equal to 200 mg/dLsuggests DIABETES MELLITUS per A.D.A. criteria. Performed By: #### L 100.0100, L500.2500, L501.0900 ####[facility] [address] [place], [address] Potassium [Moles/Vol] 5.3 mmol/L High 3.5-5.1 [facility] Comment on above: Performed By: #### L 100.0100, L500.2500, L501.0900 ####[facility] [address] [place], [address] Sodium [Moles/Vol] 141 mmol/L Normal 136-145 [facility] Comment on above: Performed By: #### L 100.0100, L500.2500, L501.0900 ####[facility] [address] [place], [address] Urea nitrogen [Mass/Vol] 84 mg/dL High 7-18 [facility] Comment on above: Performed By: #### L 100.0100, L500.2500, L501.0900 ####[facility] [address] [place], [address] Basophil percentageOrdered B y: Yuridia Hernandez on 03-14-2024 Basophils/100 WBC (Bld) 0.5 % 0-1 [facility] Blood urea nitrogen (BUN)/cr eatinine ratioOrdered By: Yuridia Hernandez on 03-14-2024 Urea nitrogen/Creatinine [Mass ratio] 28.6 mg/mg High 10-20 [facility] CBC W/Diff, Automatedon Absolute Lymph 1.03 X10 3/uL Normal 0.83-4.51 [facility] Comment on above: Performed By: #### L 100.0100, L500.2500, L501.0900 ####[facility] [address] [place], [address] Absolute Neut 4.5 X10 3/uL Normal 2.0-7.7 [facility] Comment on above: Performed By: #### L 100.0100, L500.2500, L501.0900 ####[facility] [address] [place], [address] Basophils/100 WBC (Bld) 0.5 % Normal 0-1 [facility] Comment on above: Performed By: #### L 100.0100, L500.2500, L501.0900 ####[facility] [address] [place], [address] Eosinophils/100 WBC (Bld) 2.3 % Normal 0-5 [facility] Comment on above: Performed By: #### L 100.0100, L500.2500, L501.0900 ####[facility] [address] [place], [address] Erythrocyte distribution width (RBC) [Ratio] 13.5 % Normal 11.6-14.6 [facility] Comment on above: Performed By: #### L 100.0100, L500.2500, L501.0900 ####[facility] [address] [place], [address] Hematocrit (Bld) [Volume fraction] 29.3 % Low 40-54 [facility] Comment on above: Performed By: #### L 100.0100, L500.2500, L501.0900 ####[facility] [address] [place], [address] Hemoglobin (Bld) [Mass/Vol] 8.9 g/dL Low 13.0-16.5 [facility] Comment on above: Performed By: #### L 100.0100, L500.2500, L501.0900 ####[facility] [address] [place], [address] IG% 0.500 Normal 0.0-0.9 [facility] Comment on above: Result Comment: IG% - Immature Granulocytes (promyelocytes, myelocytes andmetamyelocytes) > 1% indicates that a LEFT SHIFT is Present. Performed By: #### L 100.0100, L500.2500, L501.0900 ####[facility] [address] [place], [address] Lymphocytes/100 WBC (Bld) 16.6 % Low 19-41 [facility] Comment on above: Performed By: #### L 100.0100, L500.2500, L501.0900 ####[facility] [address] [place], [address] MCH (RBC) [Entitic mass] 31.0 pg Normal 27.0-32.0 [facility] Comment on above: Performed By: #### L 100.0100, L500.2500, L501.0900 ####[facility] [address] [place], [address] MCHC (RBC) [Mass/Vol] 30.4 g/dL Low 32-36 [facility] Comment on above: Performed By: #### L 100.0100, L500.2500, L501.0900 ####[facility] [address] [place], [address] MCV (RBC) [Entitic vol] 102.1 fL High 80-94 [facility] Comment on above: Performed By: #### L 100.0100, L500.2500, L501.0900 ####[facility] [address] [place], [address] Monocytes/100 WBC (Bld) 7.7 % Normal 0-10 [facility] Comment on above: Performed By: #### L 100.0100, L500.2500, L501.0900 ####[facility] [address] [place], [address] Neutrophils/100 WBC (Bld) 72.4 % High 47-70 [facility] Comment on above: Performed By: #### L 100.0100, L500.2500, L501.0900 ####[facility] [address] [place], [address] Nucleated RBC (Bld) [#/Vol] 0 10*3/uL Normal 0-5 [facility] Comment on above: Performed By: #### L 100.0100, L500.2500, L501.0900 ####[facility] [address] [place], [address] Platelet mean volume (Bld) [Entitic vol] 11.9 fL Normal 6.2-12.0 [facility] Comment on above: Performed By: #### L 100.0100, L500.2500, L501.0900 ####[facility] [address] [place], [address] Platelets (Bld) [#/Vol] 112 10*3/uL Low 150-450 [facility] Comment on above: Performed By: #### L 100.0100, L500.2500, L501.0900 ####[facility] [address] [place], [address] RBC (Bld) [#/Vol] 2.87 10*6/uL Low 4.6-6.2 [facility] Comment on above: Performed By: #### L 100.0100, L500.2500, L501.0900 ####[facility] [address] [place], [address] RDW SD 51.0 fl High 35.1-43.9 [facility] Comment on above: Performed By: #### L 100.0100, L500.2500, L501.0900 ####[facility] [address] [place], [address] WBC (Bld) [#/Vol] 6.2 10*3/uL Normal 4.4-11.0 [facility] Comment on above: Performed By: #### L 100.0100, L500.2500, L501.0900 ####[facility] [address] [place], [address] Carbon dioxide measurementOr dered By: Yuridia Hernandez on 03-14-2024 CO2 [Moles/Vol] 31.0 mmol/L 21.0-32.0 [facility] Chloride measurementOrdered By: Yuridia Hernandez on 03-14-2024 Chloride [Moles/Vol] 104 mmol/L 98-107 [facility] Eosinophil percentageOrdered By: Yuridia Hernandez on 03-14-2024 Eosinophils/100 WBC (Bld) 2.3 % 0-5 [facility] Erythrocyte distribution wid th (RBC) [Ratio]Ordered By: Yuridia Hernandez on 03-14-2024 Erythrocyte distribution width (RBC) [Entitic vol] 51.0 fL High 35.1-43.9 [facility] Erythrocyte distribution wid th ratioOrdered By: Yuridia Hernandez on 03-14-2024 Erythrocyte distribution width (RBC) [Ratio] 13.5 % 11.6-14.6 [facility] Estimated glomerular filtrat ion rate (GFR) AmericanOrdered By: Yuridia Hernandez on 03-14-2024 Estimated GFR (MDRD) Amer 26 mL/min Low >60 [facility] Comment on above: GFR Calc Glomerular filtration rate ( GFR) estimationOrdered By: Yuridia Hernandez on 03-14-2024 Estimated GFR (MDRD) Non-Af Amer 22 mL/min Low >60 [facility] Comment on above: Non- GFR Calc Glucose measurementOrdered B y: Yuridia Hernandez on 03-14-2024 Glucose [Mass/Vol] 290 mg/dL High 74-106 [facility] Comment on above: Glucose result great er than or equal to 200 mg/dLsuggests DIABETES MELLITUS per A.D.A. criteria. Hematocrit Auto (Bld) [Volum e fraction]Ordered By: Yuridia Hernandez on 03-14-2024 Hematocrit (Bld) [Volume fraction] 29.3 % Low 40-54 [facility] Hemoglobin measurementOrdere d By: Yuridia Hernandez on 03-14-2024 Hemoglobin (Bld) [Mass/Vol] 8.9 g/dL Low 13.0-16.5 [facility] Immature granulocytes/100 WB C Auto (Bld)Ordered By: Yuridia Hernandez on 03-14-2024 Immature granulocytes/100 WBC (Bld) 0.500 % 0.0-0.9 [facility] Comment on above: IG% - Immature Granu locytes (promyelocytes, myelocytes and metamyelocytes) > 1% indicates that a LEFT SHIFT is Present. Lymphocytes Auto (Unsp spec) [#/Vol]Ordered By: Yuridia Hernandez on 03-14-2024 Lymphocytes (Bld) [#/Vol] 1.03 10*3/uL 0.83-4.51 [facility] Lymphocytes/100 WBC Auto (Un sp spec)Ordered By: Yuridia Hernandez on 03-14-2024 Lymphocytes/100 WBC (Bld) 16.6 % Low 19-41 [facility] MCV (mean corpuscular volume ) determinationOrdered By: Yuridia Hernandez on 03-14-2024 MCV (RBC) [Entitic vol] 102.1 fL High 80-94 [facility] Mean corpuscular hemoglobin (MCH) determinationOrdered By: Yuridia Hernandez on 03-14-2024 MCH (RBC) [Entitic mass] 31.0 pg 27.0-32.0 [facility] Mean corpuscular hemoglobin concentration (MCHC) determinationOrdered By: Yuridia Hernandez on 03-14-2024 MCHC (RBC) [Mass/Vol] 30.4 g/dL Low 32-36 [facility] Mean platelet volume determi nationOrdered By: Yuridia Hernandez on 03-14-2024 Platelet mean volume (Bld) [Entitic vol] 11.9 fL 6.2-12.0 [facility] Monocyte percentageOrdered B y: Yuridia Hernandez on 03-14-2024 Monocytes/100 WBC (Bld) 7.7 % 0-10 [facility] Neutrophil percentageOrdered By: Yuridia Hernandez on 03-14-2024 Neutrophils/100 WBC (Bld) 72.4 % High 47-70 [facility] Nucleated red blood cell per centageOrdered By: Yuridia Hernandez on 03-14-2024 Nucleated RBC/100 WBC (Bld) [Ratio] 0 % 0-5 [facility] Platelet countOrdered By: Mike Hernandez on 03-14-2024 Platelets (Bld) [#/Vol] 112 10*3/uL Low 150-450 [facility] Potassium measurementOrdered By: Yuridia Hernandez on 03-14-2024 Potassium [Moles/Vol] 5.3 mmol/L High 3.5-5.1 [facility] Protein+Creatinine Ratio,Uri neon 03-14-2024 PROT:CRE RATIO 329 mg/g CRE High 0-200 [facility] Comment on above: Performed By: #### L 100.0100, L500.2500, L501.0900 ####[facility] [address] [place], [address] Protein (U) [Mass/Vol] 7.7 mg/dL Normal <11.9 [facility] Comment on above: Performed By: #### L 100.0100, L500.2500, L501.0900 ####[facility] [address] [place], [address] UR CREAT 23.40 mg/dL Normal NO RANGE EST. [facility] Comment on above: Performed By: #### L 100.0100, L500.2500, L501.0900 ####[facility] [address] [place], [address] Protein/Creatinine (U) [Mass ratio]Ordered By: Yuridia Hernandez on 03-14-2024 Urine Protein/Creatinine Ratio 329 mg/g CRE High 0-200 [facility] RBC Auto (Bld) [#/Vol]Ordere d By: Yuridia Hernandez on 03-14-2024 RBC (Bld) [#/Vol] 2.87 10*6/uL Low 4.6-6.2 [facility] Random urine protein measure mentOrdered By: Yuridia Hernandez on 03-14-2024 Protein (U) [Mass/Vol] 7.7 mg/dL 0.0-11.8 [facility] Serum anion gap measurementO rdered By: Yuridia Hernandez on 03-14-2024 Anion gap [Moles/Vol] 6 mmol/L 5-15 [facility] Serum or plasma calcium elmira urement (mass/volume)Ordered By: Yuridia Hernandez on 03-14-2024 Calcium [Mass/Vol] 9.9 mg/dL 8.5-10.1 [facility] Serum or plasma creatinine m easurement (mass/volume)Ordered By: Yuridia Hernandez on 03-14-2024 Creatinine [Mass/Vol] 2.94 mg/dL High 0.70-1.30 [facility] Comment on above: The validity of the calculated GFR & GFRAA in patients over 70 years has not been determined. Clinical correlation is essential. Serum or plasma urea nitroge n measurement (mass/volume)Ordered By: Yuridia Hernandez on 03-14-2024 Urea nitrogen [Mass/Vol] 84 mg/dL High - [facility] Sodium levelOrdered By: Yuridia Hernandez on 03-14-2024 Sodium [Moles/Vol] 141 mmol/L 136-145 [facility] Urine creatinine measurement (mass/volume)Ordered By: Yuridia Hernandez on 03-14-2024 Creatinine (U) [Mass/Vol] 23.40 mg/dL NO RANGE EST. [facility] White blood cell (WBC) count Ordered By: Yuridia Hernandez on 03-14-2024 WBC (Bld) [#/Vol] 6.2 10*3/uL 4.4-11.0 [facility] Basic Metabolic Profile (BMP )on 03-08-2024 BUN Normal 09-26 [facility] Comment on above: Result Comment: Canc elled via OM: Order cancelled - Patient discharged Performed By: #### L 100.0100, L500.2500 ####[facility] [address] [place], [address] BUN/CRE Normal - [facility] Comment on above: Result Comment: Canc elled via OM: Order cancelled - Patient discharged Performed By: #### L 100.0100, L500.2500 ####[facility] [address] [place], [address] CA,Total Normal 8.5-10.1 [facility] Comment on above: Result Comment: Canc elled via OM: Order cancelled - Patient discharged Performed By: #### L 100.0100, L500.2500 ####[facility] [address] [place], [address] CL Normal 98-107 [facility] Comment on above: Result Comment: Canc elled via OM: Order cancelled - Patient discharged Performed By: #### L 100.0100, L500.2500 ####[facility] [address] [place], [address] CO2 Normal 21.0-32.0 [facility] Comment on above: Result Comment: Canc elled via OM: Order cancelled - Patient discharged Performed By: #### L 100.0100, L500.2500 ####[facility] [address] [place], [address] CREAT,SERUM Normal 0.70-1.30 [facility] Comment on above: Result Comment: Canc elled via OM: Order cancelled - Patient discharged Performed By: #### L 100.0100, L500.2500 ####[facility] [address] [place], [address] EST GFR Normal >60 [facility] Comment on above: Result Comment: Canc elled via OM: Order cancelled - Patient discharged Performed By: #### L 100.0100, L500.2500 ####[facility] [address] [place], [address] EST GFR - AA Normal >60 [facility] Comment on above: Result Comment: Canc elled via OM: Order cancelled - Patient discharged Performed By: #### L 100.0100, L500.2500 ####[facility] [address] [place], [address] GAP Normal 5-15 [facility] Comment on above: Result Comment: Canc elled via OM: Order cancelled - Patient discharged Performed By: #### L 100.0100, L500.2500 ####[facility] [address] [place], [address] GLU Normal 74-106 [facility] Comment on above: Result Comment: Canc elled via OM: Order cancelled - Patient discharged Performed By: #### L 100.0100, L500.2500 ####[facility] [address] [place], [address] Potassium Normal 3.5-5.1 [facility] Comment on above: Result Comment: Canc elled via OM: Order cancelled - Patient discharged Performed By: #### L 100.0100, L500.2500 ####[facility] [address] [place], [address] Basic Metabolic Profile (BMP) Normal 136-145 [facility] Comment on above: Result Comment: Canc elled via OM: Order cancelled - Patient discharged Performed By: #### L 100.0100, L500.2500 ####[facility] [address] [place], [address] CBC W/Diff, Automatedon 12-2 Absolute Neut Normal 2.0-7.7 [facility] Comment on above: Result Comment: Canc elled via OM: Order cancelled - Patient discharged Performed By: #### L 100.0100, L500.2500 ####[facility] [address] [place], [address] HCT Normal 40-54 [facility] Comment on above: Result Comment: Canc elled via OM: Order cancelled - Patient discharged Performed By: #### L 100.0100, L500.2500 ####[facility] [address] [place], [address] HGB Normal 13.0-16.5 [facility] Comment on above: Result Comment: Canc elled via OM: Order cancelled - Patient discharged Performed By: #### L 100.0100, L500.2500 ####[facility] [address] [place], [address] MCH Normal 27.0-32.0 [facility] Comment on above: Result Comment: Canc elled via OM: Order cancelled - Patient discharged Performed By: #### L 100.0100, L500.2500 ####[facility] [address] [place], [address] MCHC Normal 32-36 [facility] Comment on above: Result Comment: Canc elled via OM: Order cancelled - Patient discharged Performed By: #### L 100.0100, L500.2500 ####[facility] [address] [place], [address] MCV Normal 80-94 [facility] Comment on above: Result Comment: Canc elled via OM: Order cancelled - Patient discharged Performed By: #### L 100.0100, L500.2500 ####[facility] [address] [place], [address] NEUT% Normal 47-70 [facility] Comment on above: Result Comment: Canc elled via OM: Order cancelled - Patient discharged Performed By: #### L 100.0100, L500.2500 ####[facility] [address] [place], [address] PLT Normal 150-450 [facility] Comment on above: Result Comment: Canc elled via OM: Order cancelled - Patient discharged Performed By: #### L 100.0100, L500.2500 ####[facility] [address] [place], [address] RBC Normal 4.6-6.2 [facility] Comment on above: Result Comment: Canc elled via OM: Order cancelled - Patient discharged Performed By: #### L 100.0100, L500.2500 ####[facility] [address] [place], [address] RDW CV Normal 11.6-14.6 [facility] Comment on above: Result Comment: Canc elled via OM: Order cancelled - Patient discharged Performed By: #### L 100.0100, L500.2500 ####[facility] [address] [place], [address] RDW SD Normal 35.1-43.9 [facility] Comment on above: Result Comment: Canc elled via OM: Order cancelled - Patient discharged Performed By: #### L 100.0100, L500.2500 ####[facility] [address] [place], [address] WBC Normal 4.4-11.0 [facility] Comment on above: Result Comment: Canc elled via OM: Order cancelled - Patient discharged Performed By: #### L 100.0100, L500.2500 ####[facility] [address] [place], [address] Basic Metabolic Profile (BMP )on 03-07-2024 BUN Normal 7-18 [facility] Comment on above: Result Comment: Canc elled via OM: Order cancelled - Patient discharged Performed By: #### L 100.0100, L500.2500 ####[facility] [address] [place], [address] BUN/CRE Normal 10-20 [facility] Comment on above: Result Comment: Canc elled via OM: Order cancelled - Patient discharged Performed By: #### L 100.0100, L500.2500 ####[facility] [address] [place], [address] CA,Total Normal 8.5-10.1 [facility] Comment on above: Result Comment: Canc elled via OM: Order cancelled - Patient discharged Performed By: #### L 100.0100, L500.2500 ####[facility] [address], [address] CL Normal 98-107 [facility] Comment on above: Result Comment: Canc elled via OM: Order cancelled - Patient discharged Performed By: #### L 100.0100, L500.2500 ####[facility] [address] [place], [address] CO2 Normal 21.0-32.0 [facility] Comment on above: Result Comment: Canc elled via OM: Order cancelled - Patient discharged Performed By: #### L 100.0100, L500.2500 ####[facility] [address] [place], [address] CREAT,SERUM Normal 0.70-1.30 [facility] Comment on above: Result Comment: Canc elled via OM: Order cancelled - Patient discharged Performed By: #### L 100.0100, L500.2500 ####[facility] [address] [place], [address] EST GFR Normal >60 [facility] Comment on above: Result Comment: Canc elled via OM: Order cancelled - Patient discharged Performed By: #### L 100.0100, L500.2500 ####[facility] [address] [place], [address] EST GFR - AA Normal >60 [facility] Comment on above: Result Comment: Canc elled via OM: Order cancelled - Patient discharged Performed By: #### L 100.0100, L500.2500 ####[facility] [address], [address] GAP Normal 5-15 [facility] Comment on above: Result Comment: Canc elled via OM: Order cancelled - Patient discharged Performed By: #### L 100.0100, L500.2500 ####[facility] [address] [place], [address] GLU Normal 74-106 [facility] Comment on above: Result Comment: Canc elled via OM: Order cancelled - Patient discharged Performed By: #### L 100.0100, L500.2500 ####[facility] [address] [place], [address] Potassium Normal 3.5-5.1 [facility] Comment on above: Result Comment: Canc elled via OM: Order cancelled - Patient discharged Performed By: #### L 100.0100, L500.2500 ####[facility] [address] [place], [address] Basic Metabolic Profile (BMP) Normal 136-145 [facility] Comment on above: Result Comment: Canc elled via OM: Order cancelled - Patient discharged Performed By: #### L 100.0100, L500.2500 ####[facility] [address] [place], [address] CBC W/Diff, Automatedon 12-2 Absolute Neut Normal 2.0-7.7 [facility] Comment on above: Result Comment: Canc elled via OM: Order cancelled - Patient discharged Performed By: #### L 100.0100, L500.2500 ####[facility] [address] [place], [address] HCT Normal 40-54 [facility] Comment on above: Result Comment: Canc elled via OM: Order cancelled - Patient discharged Performed By: #### L 100.0100, L500.2500 ####[facility] [address] [place], [address] HGB Normal 13.0-16.5 [facility] Comment on above: Result Comment: Canc elled via OM: Order cancelled - Patient discharged Performed By: #### L 100.0100, L500.2500 ####[facility] [address] [place], [address] MCH Normal 27.0-32.0 [facility] Comment on above: Result Comment: Canc elled via OM: Order cancelled - Patient discharged Performed By: #### L 100.0100, L500.2500 ####[facility] [address] [place], [address] MCHC Normal 32-36 [facility] Comment on above: Result Comment: Canc elled via OM: Order cancelled - Patient discharged Performed By: #### L 100.0100, L500.2500 ####[facility] [address] [place], [address] MCV Normal 80-94 [facility] Comment on above: Result Comment: Canc elled via OM: Order cancelled - Patient discharged Performed By: #### L 100.0100, L500.2500 ####[facility] [address] [place], [address] NEUT% Normal 47-70 [facility] Comment on above: Result Comment: Canc elled via OM: Order cancelled - Patient discharged Performed By: #### L 100.0100, L500.2500 ####[facility] [address] [place], [address] PLT Normal 150-450 [facility] Comment on above: Result Comment: Canc elled via OM: Order cancelled - Patient discharged Performed By: #### L 100.0100, L500.2500 ####[facility] [address] [place], [address] RBC Normal 4.6-6.2 [facility] Comment on above: Result Comment: Canc elled via OM: Order cancelled - Patient discharged Performed By: #### L 100.0100, L500.2500 ####[facility] [address] [place], [address] RDW CV Normal 11.6-14.6 [facility] Comment on above: Result Comment: Canc elled via OM: Order cancelled - Patient discharged Performed By: #### L 100.0100, L500.2500 ####[facility] [address], [address] RDW SD Normal 35.1-43.9 [facility] Comment on above: Result Comment: Canc elled via OM: Order cancelled - Patient discharged Performed By: #### L 100.0100, L500.2500 ####[facility] [address], [address] WBC Normal 4.4-11.0 [facility] Comment on above: Result Comment: Canc elled via OM: Order cancelled - Patient discharged Performed By: #### L 100.0100, L500.2500 ####[facility] [address] [place], [address] Basic Metabolic Profile (BMP )on 03-06-2024 BUN Normal 7-18 [facility] Comment on above: Result Comment: Canc elled via OM: Order cancelled - Patient discharged Performed By: #### L 100.0100, L500.2500 ####[facility] [address] [place], [address] BUN/CRE Normal 10-20 [facility] Comment on above: Result Comment: Canc elled via OM: Order cancelled - Patient discharged Performed By: #### L 100.0100, L500.2500 ####[facility] [address] [place], [address] CA,Total Normal 8.5-10.1 [facility] Comment on above: Result Comment: Canc elled via OM: Order cancelled - Patient discharged Performed By: #### L 100.0100, L500.2500 ####[facility] [address], [address] CL Normal 98-107 [facility] Comment on above: Result Comment: Canc elled via OM: Order cancelled - Patient discharged Performed By: #### L 100.0100, L500.2500 ####[facility] [address] [place], [address] CO2 Normal 21.0-32.0 [facility] Comment on above: Result Comment: Canc elled via OM: Order cancelled - Patient discharged Performed By: #### L 100.0100, L500.2500 ####[facility] [address] [place], [address] CREAT,SERUM Normal 0.70-1.30 [facility] Comment on above: Result Comment: Canc elled via OM: Order cancelled - Patient discharged Performed By: #### L 100.0100, L500.2500 ####[facility] [address] [place], [address] EST GFR Normal >60 [facility] Comment on above: Result Comment: Canc elled via OM: Order cancelled - Patient discharged Performed By: #### L 100.0100, L500.2500 ####[facility] [address] [place], [address] EST GFR - AA Normal >60 [facility] Comment on above: Result Comment: Canc elled via OM: Order cancelled - Patient discharged Performed By: #### L 100.0100, L500.2500 ####[facility] [address] [place], [address] GAP Normal 5-15 [facility] Comment on above: Result Comment: Canc elled via OM: Order cancelled - Patient discharged Performed By: #### L 100.0100, L500.2500 ####[facility] [address] [place], [address] GLU Normal 74-106 [facility] Comment on above: Result Comment: Canc elled via OM: Order cancelled - Patient discharged Performed By: #### L 100.0100, L500.2500 ####[facility] [address] [place], [address] Potassium Normal 3.5-5.1 [facility] Comment on above: Result Comment: Canc elled via OM: Order cancelled - Patient discharged Performed By: #### L 100.0100, L500.2500 ####[facility] [address] [place], [address] Basic Metabolic Profile (BMP) Normal 136-145 [facility] Comment on above: Result Comment: Canc elled via OM: Order cancelled - Patient discharged Performed By: #### L 100.0100, L500.2500 ####[facility] [address] [place], [address] CBC W/Diff, Automatedon 12-2 Absolute Neut Normal 2.0-7.7 [facility] Comment on above: Result Comment: Canc elled via OM: Order cancelled - Patient discharged Performed By: #### L 100.0100, L500.2500 ####[facility] [address] [place], [address] HCT Normal 40-54 [facility] Comment on above: Result Comment: Canc elled via OM: Order cancelled - Patient discharged Performed By: #### L 100.0100, L500.2500 ####[facility] [address] [place], [address] HGB Normal 13.0-16.5 [facility] Comment on above: Result Comment: Canc elled via OM: Order cancelled - Patient discharged Performed By: #### L 100.0100, L500.2500 ####[facility] [address] [place], [address] MCH Normal 27.0-32.0 [facility] Comment on above: Result Comment: Canc elled via OM: Order cancelled - Patient discharged Performed By: #### L 100.0100, L500.2500 ####[facility] [address] [place], [address] MCHC Normal 32-36 [facility] Comment on above: Result Comment: Canc elled via OM: Order cancelled - Patient discharged Performed By: #### L 100.0100, L500.2500 ####[facility] [address] [place], [address] MCV Normal 80-94 [facility] Comment on above: Result Comment: Canc elled via OM: Order cancelled - Patient discharged Performed By: #### L 100.0100, L500.2500 ####[facility] [address] [place], [address] NEUT% Normal 47-70 [facility] Comment on above: Result Comment: Canc elled via OM: Order cancelled - Patient discharged Performed By: #### L 100.0100, L500.2500 ####[facility] [address] [place], [address] PLT Normal 150-450 [facility] Comment on above: Result Comment: Canc elled via OM: Order cancelled - Patient discharged Performed By: #### L 100.0100, L500.2500 ####[facility] [address] [place], [address] RBC Normal 4.6-6.2 [facility] Comment on above: Result Comment: Canc elled via OM: Order cancelled - Patient discharged Performed By: #### L 100.0100, L500.2500 ####[facility] [address] [place], [address] RDW CV Normal 11.6-14.6 [facility] Comment on above: Result Comment: Canc elled via OM: Order cancelled - Patient discharged Performed By: #### L 100.0100, L500.2500 ####[facility] [address] [place], [address] RDW SD Normal 35.1-43.9 [facility] Comment on above: Result Comment: Canc elled via OM: Order cancelled - Patient discharged Performed By: #### L 100.0100, L500.2500 ####[facility] [address], [address] WBC Normal 4.4-11.0 [facility] Comment on above: Result Comment: Canc elled via OM: Order cancelled - Patient discharged Performed By: #### L 100.0100, L500.2500 ####[facility] [address] [place], [address] Basic Metabolic Profile (BMP )on 03-05-2024 BUN Normal 7-18 [facility] Comment on above: Result Comment: Canc elled via OM: Order cancelled - Patient discharged Performed By: #### L 100.0100, L500.2500 ####[facility] [address] [place], [address] BUN/CRE Normal 10-20 [facility] Comment on above: Result Comment: Canc elled via OM: Order cancelled - Patient discharged Performed By: #### L 100.0100, L500.2500 ####[facility] [address] [place], [address] CA,Total Normal 8.5-10.1 [facility] Comment on above: Result Comment: Canc elled via OM: Order cancelled - Patient discharged Performed By: #### L 100.0100, L500.2500 ####[facility] [address] [place], [address] CL Normal 98-107 [facility] Comment on above: Result Comment: Canc elled via OM: Order cancelled - Patient discharged Performed By: #### L 100.0100, L500.2500 ####[facility] [address] [place], [address] CO2 Normal 21.0-32.0 [facility] Comment on above: Result Comment: Canc elled via OM: Order cancelled - Patient discharged Performed By: #### L 100.0100, L500.2500 ####[facility] [address] [place], [address] CREAT,SERUM Normal 0.70-1.30 [facility] Comment on above: Result Comment: Canc elled via OM: Order cancelled - Patient discharged Performed By: #### L 100.0100, L500.2500 ####[facility] [address] [place], [address] EST GFR Normal >60 [facility] Comment on above: Result Comment: Canc elled via OM: Order cancelled - Patient discharged Performed By: #### L 100.0100, L500.2500 ####[facility] [address] [place], [address] EST GFR - AA Normal >60 [facility] Comment on above: Result Comment: Canc elled via OM: Order cancelled - Patient discharged Performed By: #### L 100.0100, L500.2500 ####[facility] [address] [place], [address] GAP Normal 5-15 [facility] Comment on above: Result Comment: Canc elled via OM: Order cancelled - Patient discharged Performed By: #### L 100.0100, L500.2500 ####[facility] [address] [place], [address] GLU Normal 74-106 [facility] Comment on above: Result Comment: Canc elled via OM: Order cancelled - Patient discharged Performed By: #### L 100.0100, L500.2500 ####[facility] [address] [place], [address] Potassium Normal 3.5-5.1 [facility] Comment on above: Result Comment: Canc elled via OM: Order cancelled - Patient discharged Performed By: #### L 100.0100, L500.2500 ####[facility] [address] [place], [address] Basic Metabolic Profile (BMP) Normal 136-145 [facility] Comment on above: Result Comment: Canc elled via OM: Order cancelled - Patient discharged Performed By: #### L 100.0100, L500.2500 ####[facility] [address] [place], [address] CBC W/Diff, Automatedon 12-2 Absolute Neut Normal 2.0-7.7 [facility] Comment on above: Result Comment: Canc elled via OM: Order cancelled - Patient discharged Performed By: #### L 100.0100, L500.2500 ####[facility] [address] [place], [address] HCT Normal 40-54 [facility] Comment on above: Result Comment: Canc elled via OM: Order cancelled - Patient discharged Performed By: #### L 100.0100, L500.2500 ####[facility] [address] [place], [address] HGB Normal 13.0-16.5 [facility] Comment on above: Result Comment: Canc elled via OM: Order cancelled - Patient discharged Performed By: #### L 100.0100, L500.2500 ####[facility] [address] [place], [address] MCH Normal 27.0-32.0 [facility] Comment on above: Result Comment: Canc elled via OM: Order cancelled - Patient discharged Performed By: #### L 100.0100, L500.2500 ####[facility] [address] [place], [address] MCHC Normal 32-36 [facility] Comment on above: Result Comment: Canc elled via OM: Order cancelled - Patient discharged Performed By: #### L 100.0100, L500.2500 ####[facility] [address], [address] MCV Normal 80-94 [facility] Comment on above: Result Comment: Canc elled via OM: Order cancelled - Patient discharged Performed By: #### L 100.0100, L500.2500 ####[facility] [address], [address] NEUT% Normal 47-70 [facility] Comment on above: Result Comment: Canc elled via OM: Order cancelled - Patient discharged Performed By: #### L 100.0100, L500.2500 ####[facility] [address] [place], [address] PLT Normal 150-450 [facility] Comment on above: Result Comment: Canc elled via OM: Order cancelled - Patient discharged Performed By: #### L 100.0100, L500.2500 ####[facility] [address] [place], [address] RBC Normal 4.6-6.2 [facility] Comment on above: Result Comment: Canc elled via OM: Order cancelled - Patient discharged Performed By: #### L 100.0100, L500.2500 ####[facility] [address] [place], [address] RDW CV Normal 11.6-14.6 [facility] Comment on above: Result Comment: Canc elled via OM: Order cancelled - Patient discharged Performed By: #### L 100.0100, L500.2500 ####[facility] [address] [place], [address] RDW SD Normal 35.1-43.9 [facility] Comment on above: Result Comment: Canc elled via OM: Order cancelled - Patient discharged Performed By: #### L 100.0100, L500.2500 ####[facility] [address] [place], [address] WBC Normal 4.4-11.0 [facility] Comment on above: Result Comment: Canc elled via OM: Order cancelled - Patient discharged Performed By: #### L 100.0100, L500.2500 ####[facility] [address] [place], [address] Basic Metabolic Profile (BMP )on 03-04-2024 BUN Normal 7-18 [facility] Comment on above: Result Comment: Canc elled via OM: Order cancelled - Patient discharged Performed By: #### L 500.2500, L100.0100 ####[facility] [address] [place], [address] BUN/CRE Normal 10-20 [facility] Comment on above: Result Comment: Canc elled via OM: Order cancelled - Patient discharged Performed By: #### L 500.2500, L100.0100 ####[facility] [address] [place], [address] CA,Total Normal 8.5-10.1 [facility] Comment on above: Result Comment: Canc elled via OM: Order cancelled - Patient discharged Performed By: #### L 500.2500, L100.0100 ####[facility] [address] [place], [address] CL Normal 98-107 [facility] Comment on above: Result Comment: Canc elled via OM: Order cancelled - Patient discharged Performed By: #### L 500.2500, L100.0100 ####[facility] [address] [place], [address] CO2 Normal 21.0-32.0 [facility] Comment on above: Result Comment: Canc elled via OM: Order cancelled - Patient discharged Performed By: #### L 500.2500, L100.0100 ####[facility] [address] [place], [address] CREAT,SERUM Normal 0.70-1.30 [facility] Comment on above: Result Comment: Canc elled via OM: Order cancelled - Patient discharged Performed By: #### L 500.2500, L100.0100 ####[facility] [address] [place], [address] EST GFR Normal >60 [facility] Comment on above: Result Comment: Canc elled via OM: Order cancelled - Patient discharged Performed By: #### L 500.2500, L100.0100 ####[facility] [address] [place], [address] EST GFR - AA Normal >60 [facility] Comment on above: Result Comment: Canc elled via OM: Order cancelled - Patient discharged Performed By: #### L 500.2500, L100.0100 ####[facility] [address] [place], [address] GAP Normal 5-15 [facility] Comment on above: Result Comment: Canc elled via OM: Order cancelled - Patient discharged Performed By: #### L 500.2500, L100.0100 ####[facility] [address] [place], [address] GLU Normal 74-106 [facility] Comment on above: Result Comment: Canc elled via OM: Order cancelled - Patient discharged Performed By: #### L 500.2500, L100.0100 ####[facility] [address] [place], [address] Potassium Normal 3.5-5.1 [facility] Comment on above: Result Comment: Canc elled via OM: Order cancelled - Patient discharged Performed By: #### L 500.2500, L100.0100 ####[facility] [address] [place], [address] Basic Metabolic Profile (BMP) Normal 136-145 [facility] Comment on above: Result Comment: Canc elled via OM: Order cancelled - Patient discharged Performed By: #### L 500.2500, L100.0100 ####[facility] [address] [place], [address] CBC W/Diff, Automatedon 12-2 Absolute Neut Normal 2.0-7.7 [facility] Comment on above: Result Comment: Canc elled via OM: Order cancelled - Patient discharged Performed By: #### L 500.2500, L100.0100 ####[facility] [address], [address] HCT Normal 40-54 [facility] Comment on above: Result Comment: Canc elled via OM: Order cancelled - Patient discharged Performed By: #### L 500.2500, L100.0100 ####[facility] [address] [place], [address] HGB Normal 13.0-16.5 [facility] Comment on above: Result Comment: Canc elled via OM: Order cancelled - Patient discharged Performed By: #### L 500.2500, L100.0100 ####[facility] [address] [place], [address] MCH Normal 27.0-32.0 [facility] Comment on above: Result Comment: Canc elled via OM: Order cancelled - Patient discharged Performed By: #### L 500.2500, L100.0100 ####[facility] [address] [place], [address] MCHC Normal 32-36 [facility] Comment on above: Result Comment: Canc elled via OM: Order cancelled - Patient discharged Performed By: #### L 500.2500, L100.0100 ####[facility] [address] [place], [address] MCV Normal 80-94 [facility] Comment on above: Result Comment: Canc elled via OM: Order cancelled - Patient discharged Performed By: #### L 500.2500, L100.0100 ####[facility] [address], [address] NEUT% Normal 47-70 [facility] Comment on above: Result Comment: Canc elled via OM: Order cancelled - Patient discharged Performed By: #### L 500.2500, L100.0100 ####[facility] [address] [place], [address] PLT Normal 150-450 [facility] Comment on above: Result Comment: Canc elled via OM: Order cancelled - Patient discharged Performed By: #### L 500.2500, L100.0100 ####[facility] [address] [place], [address] RBC Normal 4.6-6.2 [facility] Comment on above: Result Comment: Canc elled via OM: Order cancelled - Patient discharged Performed By: #### L 500.2500, L100.0100 ####[facility] [address] [place], [address] RDW CV Normal 11.6-14.6 [facility] Comment on above: Result Comment: Canc elled via OM: Order cancelled - Patient discharged Performed By: #### L 500.2500, L100.0100 ####[facility] [address] [place], [address] RDW SD Normal 35.1-43.9 [facility] Comment on above: Result Comment: Canc elled via OM: Order cancelled - Patient discharged Performed By: #### L 500.2500, L100.0100 ####[facility] [address], [address] WBC Normal 4.4-11.0 [facility] Comment on above: Result Comment: Canc elled via OM: Order cancelled - Patient discharged Performed By: #### L 500.2500, L100.0100 ####[facility] [address] [place], [address] Basic Metabolic Profile (BMP )on 03-03-2024 BUN Normal 7-18 [facility] Comment on above: Result Comment: Canc elled via OM: Order cancelled - Patient discharged Performed By: #### L 500.2500, L100.0100 ####[facility] [address] [place], [address] BUN/CRE Normal 10-20 [facility] Comment on above: Result Comment: Canc elled via OM: Order cancelled - Patient discharged Performed By: #### L 500.2500, L100.0100 ####[facility] [address] [place], [address] CA,Total Normal 8.5-10.1 [facility] Comment on above: Result Comment: Canc elled via OM: Order cancelled - Patient discharged Performed By: #### L 500.2500, L100.0100 ####[facility] [address] [place], [address] CL Normal 98-107 [facility] Comment on above: Result Comment: Canc elled via OM: Order cancelled - Patient discharged Performed By: #### L 500.2500, L100.0100 ####[facility] [address] [place], [address] CO2 Normal 21.0-32.0 [facility] Comment on above: Result Comment: Canc elled via OM: Order cancelled - Patient discharged Performed By: #### L 500.2500, L100.0100 ####[facility] [address] [place], [address] CREAT,SERUM Normal 0.70-1.30 [facility] Comment on above: Result Comment: Canc elled via OM: Order cancelled - Patient discharged Performed By: #### L 500.2500, L100.0100 ####[facility] [address] [place], [address] EST GFR Normal >60 [facility] Comment on above: Result Comment: Canc elled via OM: Order cancelled - Patient discharged Performed By: #### L 500.2500, L100.0100 ####[facility] [address] [place], [address] EST GFR - AA Normal >60 [facility] Comment on above: Result Comment: Canc elled via OM: Order cancelled - Patient discharged Performed By: #### L 500.2500, L100.0100 ####[facility] [address], [address] GAP Normal 5-15 [facility] Comment on above: Result Comment: Canc elled via OM: Order cancelled - Patient discharged Performed By: #### L 500.2500, L100.0100 ####[facility] [address], [address] GLU Normal 74-106 [facility] Comment on above: Result Comment: Canc elled via OM: Order cancelled - Patient discharged Performed By: #### L 500.2500, L100.0100 ####[facility] [address] [place], [address] Potassium Normal 3.5-5.1 [facility] Comment on above: Result Comment: Canc elled via OM: Order cancelled - Patient discharged Performed By: #### L 500.2500, L100.0100 ####[facility] [address] [place], [address] Basic Metabolic Profile (BMP) Normal 136-145 [facility] Comment on above: Result Comment: Canc elled via OM: Order cancelled - Patient discharged Performed By: #### L 500.2500, L100.0100 ####[facility] [address] [place], [address] CBC W/Diff, Automatedon 12-2 Absolute Neut Normal 2.0-7.7 [facility] Comment on above: Result Comment: Canc elled via OM: Order cancelled - Patient discharged Performed By: #### L 500.2500, L100.0100 ####[facility] [address] [place], [address] HCT Normal 40-54 [facility] Comment on above: Result Comment: Canc elled via OM: Order cancelled - Patient discharged Performed By: #### L 500.2500, L100.0100 ####[facility] [address] [place], [address] HGB Normal 13.0-16.5 [facility] Comment on above: Result Comment: Canc elled via OM: Order cancelled - Patient discharged Performed By: #### L 500.2500, L100.0100 ####[facility] [address] [place], [address] MCH Normal 27.0-32.0 [facility] Comment on above: Result Comment: Canc elled via OM: Order cancelled - Patient discharged Performed By: #### L 500.2500, L100.0100 ####[facility] [address] [place], [address] MCHC Normal 32-36 [facility] Comment on above: Result Comment: Canc elled via OM: Order cancelled - Patient discharged Performed By: #### L 500.2500, L100.0100 ####[facility] [address] [place], [address] MCV Normal 80-94 [facility] Comment on above: Result Comment: Canc elled via OM: Order cancelled - Patient discharged Performed By: #### L 500.2500, L100.0100 ####[facility] [address] [place], [address] NEUT% Normal 47-70 [facility] Comment on above: Result Comment: Canc elled via OM: Order cancelled - Patient discharged Performed By: #### L 500.2500, L100.0100 ####[facility] [address] [place], [address] PLT Normal 150-450 [facility] Comment on above: Result Comment: Canc elled via OM: Order cancelled - Patient discharged Performed By: #### L 500.2500, L100.0100 ####[facility] [address] [place], [address] RBC Normal 4.6-6.2 [facility] Comment on above: Result Comment: Canc elled via OM: Order cancelled - Patient discharged Performed By: #### L 500.2500, L100.0100 ####[facility] [address] [place], [address] RDW CV Normal 11.6-14.6 [facility] Comment on above: Result Comment: Canc elled via OM: Order cancelled - Patient discharged Performed By: #### L 500.2500, L100.0100 ####[facility] [address] [place], [address] RDW SD Normal 35.1-43.9 [facility] Comment on above: Result Comment: Canc elled via OM: Order cancelled - Patient discharged Performed By: #### L 500.2500, L100.0100 ####[facility] [address] [place], [address] WBC Normal 4.4-11.0 [facility] Comment on above: Result Comment: Canc elled via OM: Order cancelled - Patient discharged Performed By: #### L 500.2500, L100.0100 ####[facility] [address] [place], [address] Absolute neutrophil countOrd ered By: Sarai Alcantara on 03-02-2024 Neutrophils (Bld) [#/Vol] 2.6 10*3/uL 2.0-7.7 [facility] Basic Metabolic Profile (BMP )on 03-02-2024 BUN/CRE 29.1 RATIO High 10-20 [facility] Comment on above: Performed By: #### L 100.0100, L500.2500 ####[facility] [address] [place], [address] CA,Total 9.2 mg/dL Normal 8.5-10.1 [facility] Comment on above: Performed By: #### L 100.0100, L500.2500 ####[facility] [address] [place], [address] Chloride [Moles/Vol] 106 mmol/L Normal 98-107 [facility] Comment on above: Performed By: #### L 100.0100, L500.2500 ####[facility] [address] [place], [address] CO2 [Moles/Vol] 29.0 mmol/L Normal 21.0-32.0 [facility] Comment on above: Performed By: #### L 100.0100, L500.2500 ####[facility] [address] [place], [address] Creatinine [Mass/Vol] 2.54 mg/dL High 0.70-1.30 [facility] Comment on above: Result Comment: The validity of the calculated GFR GFRAA in patients over70 years has not been determined. Clinical correlation isessential. Performed By: #### L 100.0100, L500.2500 ####[facility] [address] [place], [address] ECRCL 21.53 ml/min Normal [facility] Comment on above: Performed By: #### L 100.0100, L500.2500 ####[facility] [address], [address] EST GFR - AA 31 mL/min Low >60 [facility] Comment on above: Result Comment: Afri can Singaporean GFR Calc Performed By: #### L 100.0100, L500.2500 ####[facility] [address] [place], [address] GAP 5 Normal 5-15 [facility] Comment on above: Performed By: #### L 100.0100, L500.2500 ####[facility] [address] [place], [address] GFR/1.73 sq M.predicted among non-blacks MDRD (S/P/Bld) [Vol rate/Area] 26 mL/min/{1.73_m2} Low >60 [facility] Comment on above: Result Comment: Non- GFR Calc Performed By: #### L 100.0100, L500.2500 ####[facility] [address] [place], [address] Glucose [Mass/Vol] 156 mg/dL High 74-106 [facility] Comment on above: Result Comment: Fast ing Glucose result greater than or equal to 126 mg/dLsuggests DIABETES MELLITUS per A.D.A. criteria. Performed By: #### L 100.0100, L500.2500 ####[facility] [address] [place], [address] Potassium [Moles/Vol] 4.7 mmol/L Normal 3.5-5.1 [facility] Comment on above: Performed By: #### L 100.0100, L500.2500 ####[facility] [address] [place], [address] Sodium [Moles/Vol] 140 mmol/L Normal 136-145 [facility] Comment on above: Performed By: #### L 100.0100, L500.2500 ####[facility] [address] [place], [address] Urea nitrogen [Mass/Vol] 74 mg/dL High 7-18 [facility] Comment on above: Performed By: #### L 100.0100, L500.2500 ####[facility] [address] [place], [address] Basophil percentageOrdered B y: Sarai Alcantara on 03-02-2024 Basophils/100 WBC (Bld) 0.4 % 0-1 [facility] Bedside Glucoseon 03-02-2024 FINGERSTICK GLU 157 mg/dL High 74-106 [facility] Comment on above: Result Comment: MYKE GEMENT OF PATIENT CARE PER NURSING PROTOCOL Performed By: #### L 501.080 ####[facility] [address] [place], [address] FINGERSTICK GLU 136 mg/dL High 74-106 [facility] Comment on above: Result Comment: MYKE GEMENT OF PATIENT CARE PER NURSING PROTOCOL Performed By: #### L 501.080 ####[facility] [address] [place], [address] FINGERSTICK GLU 157 mg/dL High 74-106 [facility] Comment on above: Result Comment: MYKE GEMENT OF PATIENT CARE PER NURSING PROTOCOL Performed By: #### L 501.080 ####[facility] [address] [place], [address] Blood urea nitrogen (BUN)/cr eatinine ratioOrdered By: Sarai Alcantara on 03-02-2024 Urea nitrogen/Creatinine [Mass ratio] 29.1 mg/mg High 10-20 [facility] CBC W/Diff, Automatedon -2 Absolute Lymph 1.17 X10 3/uL Normal 0.83-4.51 [facility] Comment on above: Performed By: #### L 100.0100, L500.2500 ####[facility] [address] [place], [address] Absolute Neut 2.6 X10 3/uL Normal 2.0-7.7 [facility] Comment on above: Performed By: #### L 100.0100, L500.2500 ####[facility] [address] [place], [address] Basophils/100 WBC (Bld) 0.4 % Normal 0-1 [facility] Comment on above: Performed By: #### L 100.0100, L500.2500 ####[facility] [address] [place], [address] Eosinophils/100 WBC (Bld) 6.3 % High 0-5 [facility] Comment on above: Performed By: #### L 100.0100, L500.2500 ####[facility] [address] [place], [address] Erythrocyte distribution width (RBC) [Ratio] 15.8 % High 11.6-14.6 [facility] Comment on above: Performed By: #### L 100.0100, L500.2500 ####[facility] [address] [place], [address] Hematocrit (Bld) [Volume fraction] 26.5 % Low 40-54 [facility] Comment on above: Performed By: #### L 100.0100, L500.2500 ####[facility] [address] [place], [address] Hemoglobin (Bld) [Mass/Vol] 8.2 g/dL Low 13.0-16.5 [facility] Comment on above: Performed By: #### L 100.0100, L500.2500 ####[facility] [address] [place], [address] IG% 0.700 Normal 0.0-0.9 [facility] Comment on above: Result Comment: IG% - Immature Granulocytes (promyelocytes, myelocytes andmetamyelocytes) > 1% indicates that a LEFT SHIFT is Present. Performed By: #### L 100.0100, L500.2500 ####[facility] [address] [place], [address] Lymphocytes/100 WBC (Bld) 25.5 % Normal 19-41 [facility] Comment on above: Performed By: #### L 100.0100, L500.2500 ####[facility] [address], [address] MCH (RBC) [Entitic mass] 30.7 pg Normal 27.0-32.0 [facility] Comment on above: Performed By: #### L 100.0100, L500.2500 ####[facility] [address] [place], [address] MCHC (RBC) [Mass/Vol] 30.9 g/dL Low 32-36 [facility] Comment on above: Performed By: #### L 100.0100, L500.2500 ####[facility] [address] [place], [address] MCV (RBC) [Entitic vol] 99.3 fL High 80-94 [facility] Comment on above: Performed By: #### L 100.0100, L500.2500 ####[facility] [address] [place], [address] Monocytes/100 WBC (Bld) 10.0 % Normal 0-10 [facility] Comment on above: Performed By: #### L 100.0100, L500.2500 ####[facility] [address] [place], [address] Neutrophils/100 WBC (Bld) 57.1 % Normal 47-70 [facility] Comment on above: Performed By: #### L 100.0100, L500.2500 ####[facility] [address], [address] Nucleated RBC (Bld) [#/Vol] 0 10*3/uL Normal 0-5 [facility] Comment on above: Performed By: #### L 100.0100, L500.2500 ####[facility] [address] [place], [address] Platelet mean volume (Bld) [Entitic vol] 10.2 fL Normal 6.2-12.0 [facility] Comment on above: Performed By: #### L 100.0100, L500.2500 ####[facility] [address] [place], [address] Platelets (Bld) [#/Vol] 142 10*3/uL Low 150-450 [facility] Comment on above: Performed By: #### L 100.0100, L500.2500 ####[facility] [address] [place], [address] RBC (Bld) [#/Vol] 2.67 10*6/uL Low 4.6-6.2 [facility] Comment on above: Performed By: #### L 100.0100, L500.2500 ####[facility] [address] [place], [address] RDW SD 56.8 fl High 35.1-43.9 [facility] Comment on above: Performed By: #### L 100.0100, L500.2500 ####[facility] [address] [place], [address] WBC (Bld) [#/Vol] 4.6 10*3/uL Normal 4.4-11.0 [facility] Comment on above: Performed By: #### L 100.0100, L500.2500 ####[facility] [address] [place], [address] Carbon dioxide measurementOr dered By: Sarai Alcantara on 03-02-2024 CO2 [Moles/Vol] 29.0 mmol/L 21.0-32.0 [facility] Chloride measurementOrdered By: Saria Alcantara on 03-02-2024 Chloride [Moles/Vol] 106 mmol/L 98-107 [facility] Discharge Instructionon 02-10 Discharge Instruction Normal [facility] Eosinophil percentageOrdered By: Sarai Alcantara on 03-02-2024 Eosinophils/100 WBC (Bld) 6.3 % High 0-5 [facility] Erythrocyte distribution wid th (RBC) [Ratio]Ordered By: Sarai Alcantara on 03-02-2024 Erythrocyte distribution width (RBC) [Entitic vol] 56.8 fL High 35.1-43.9 [facility] Erythrocyte distribution wid th ratioOrdered By: Sarai Alcantara on 03-02-2024 Erythrocyte distribution width (RBC) [Ratio] 15.8 % High 11.6-14.6 [facility] Estimated glomerular filtrat ion rate (GFR) AmericanOrdered By: Sarai Alcantara on 03-02-2024 Estimated GFR (MDRD) Amer 31 mL/min Low >60 [facility] Comment on above: GFR Calc Estimation of creatinine timur aranceOrdered By: Sarai Alcantara on 03-02-2024 Estimated Creatinine Clearance Calc 21.53 ml/min [facility] Glomerular filtration rate ( GFR) estimationOrdered By: Sarai Alcantara on 03-02-2024 Estimated GFR (MDRD) Non-Af Amer 26 mL/min Low >60 [facility] Comment on above: Non- GFR Calc Glucose measurementOrdered B y: Sarai Alcantara on 03-02-2024 Glucose [Mass/Vol] 156 mg/dL High 74-106 [facility] Comment on above: Fasting Glucose resu lt greater than or equal to 126 mg/dL suggests DIABETES MELLITUS per A.D.A. criteria. Glucose measurement at bedsi deOrdered By: Sarai Alcantara on 03-02-2024 Bedside Glucose (Misc Panel) 157 mg/dL High 74-106 [facility] Comment on above: MANAGEMENT OF PATIEN T CARE PER NURSING PROTOCOL Hematocrit Auto (Bld) [Volum e fraction]Ordered By: Sarai Alcantara on 03-02-2024 Hematocrit (Bld) [Volume fraction] 26.5 % Low 40-54 [facility] Hemoglobin measurementOrdere d By: Sarai Alcantara on 03-02-2024 Hemoglobin (Bld) [Mass/Vol] 8.2 g/dL Low 13.0-16.5 [facility] Immature granulocytes/100 WB C Auto (Bld)Ordered By: Sarai Alcantara on 03-02-2024 Immature granulocytes/100 WBC (Bld) 0.700 % 0.0-0.9 [facility] Comment on above: IG% - Immature Granu locytes (promyelocytes, myelocytes and metamyelocytes) > 1% indicates that a LEFT SHIFT is Present. Lymphocytes Auto (Unsp spec) [#/Vol]Ordered By: Sarai Alcantara on 03-02-2024 Lymphocytes (Bld) [#/Vol] 1.17 10*3/uL 0.83-4.51 [facility] Lymphocytes/100 WBC Auto (Un sp spec)Ordered By: Sarai Alcantara on 03-02-2024 Lymphocytes/100 WBC (Bld) 25.5 % 19-41 [facility] MCV (mean corpuscular volume ) determinationOrdered By: Sarai Alcantara on 03-02-2024 MCV (RBC) [Entitic vol] 99.3 fL High 80-94 [facility] Mean corpuscular hemoglobin (MCH) determinationOrdered By: Sarai Alcantara on 03-02-2024 MCH (RBC) [Entitic mass] 30.7 pg 27.0-32.0 [facility] Mean corpuscular hemoglobin concentration (MCHC) determinationOrdered By: Sarai Alcantara on 03-02-2024 MCHC (RBC) [Mass/Vol] 30.9 g/dL Low 32-36 [facility] Mean platelet volume determi nationOrdered By: Sarai Alcantara on 03-02-2024 Platelet mean volume (Bld) [Entitic vol] 10.2 fL 6.2-12.0 [facility] Monocyte percentageOrdered B y: Sarai Alcantara on 03-02-2024 Monocytes/100 WBC (Bld) 10.0 % 0-10 [facility] Neutrophil percentageOrdered By: Sarai Alcantara on 03-02-2024 Neutrophils/100 WBC (Bld) 57.1 % 47-70 [facility] Nucleated red blood cell per centageOrdered By: Sarai Alcantara on 03-02-2024 Nucleated RBC/100 WBC (Bld) [Ratio] 0 % 0-5 [facility] Platelet countOrdered By: Na na Quinton on 03-02-2024 Platelets (Bld) [#/Vol] 142 10*3/uL Low 150-450 [facility] Potassium measurementOrdered By: Sarai Alcantara on 03-02-2024 Potassium [Moles/Vol] 4.7 mmol/L 3.5-5.1 [facility] RBC Auto (Bld) [#/Vol]Ordere d By: Sarai Alcantara on 03-02-2024 RBC (Bld) [#/Vol] 2.67 10*6/uL Low 4.6-6.2 [facility] Serum anion gap measurementO rdered By: Sarai Alcantara on 03-02-2024 Anion gap [Moles/Vol] 5 mmol/L 5-15 [facility] Serum or plasma calcium elmira urement (mass/volume)Ordered By: Sarai Alcantara on 03-02-2024 Calcium [Mass/Vol] 9.2 mg/dL 8.5-10.1 [facility] Serum or plasma creatinine m easurement (mass/volume)Ordered By: Sarai Alcantara on 03-02-2024 Creatinine [Mass/Vol] 2.54 mg/dL High 0.70-1.30 [facility] Comment on above: The validity of the calculated GFR & GFRAA in patients over 70 years has not been determined. Clinical correlation is essential. Serum or plasma urea nitroge n measurement (mass/volume)Ordered By: Sarai Alcantara on 03-02-2024 Urea nitrogen [Mass/Vol] 74 mg/dL High 7-18 [facility] Sodium levelOrdered By: Sarai Alcantara on 03-02-2024 Sodium [Moles/Vol] 140 mmol/L 136-145 [facility] White blood cell (WBC) count Ordered By: Sarai Alcantara on 03-02-2024 WBC (Bld) [#/Vol] 4.6 10*3/uL 4.4-11.0 [facility] AST(SGOT)on 03-01-2024 AST [Catalytic activity/Vol] 15 U/L Normal 15-37 [facility] Comment on above: Performed By: #### L 501.4100, L300.3900, L300.4310 ####[facility] [address] [place], [address] Alanine Aminotransferas (SGP T)on 03-01-2024 ALT [Catalytic activity/Vol] 21 U/L Normal 16-61 [facility] Comment on above: Performed By: #### L 500.2500, L100.0100, L501.4405, L501.9520 ####[facility] [address] [place], [address] Basic Metabolic Profile (BMP )on 03-01-2024 BUN/CRE 25.2 RATIO High 10-20 [facility] Comment on above: Performed By: #### L 500.2500, L100.0100, L501.4405, L501.9520 ####[facility] [address] [place], [address] CA,Total 9.1 mg/dL Normal 8.5-10.1 [facility] Comment on above: Performed By: #### L 500.2500, L100.0100, L501.4405, L501.9520 ####[facility] [address] [place], [address] Chloride [Moles/Vol] 106 mmol/L Normal 98-107 [facility] Comment on above: Performed By: #### L 500.2500, L100.0100, L501.4405, L501.9520 ####[facility] [address] [place], [address] CO2 [Moles/Vol] 29.0 mmol/L Normal 21.0-32.0 [facility] Comment on above: Performed By: #### L 500.2500, L100.0100, L501.4405, L501.9520 ####[facility] [address] [place], [address] Creatinine [Mass/Vol] 2.78 mg/dL High 0.70-1.30 [facility] Comment on above: Result Comment: The validity of the calculated GFR GFRAA in patients over70 years has not been determined. Clinical correlation isessential. Performed By: #### L 500.2500, L100.0100, L501.4405, L501.9520 ####[facility] [address] [place], [address] ECRCL 19.67 ml/min Normal [facility] Comment on above: Performed By: #### L 500.2500, L100.0100, L501.4405, L501.9520 ####[facility] [address] [place], [address] EST GFR - AA 28 mL/min Low >60 [facility] Comment on above: Result Comment: Afri can Singaporean GFR Calc Performed By: #### L 500.2500, L100.0100, L501.4405, L501.9520 ####[facility] [address] [place], [address] GAP 6 Normal 5-15 [facility] Comment on above: Performed By: #### L 500.2500, L100.0100, L501.4405, L501.9520 ####[facility] [address] [place], [address] GFR/1.73 sq M.predicted among non-blacks MDRD (S/P/Bld) [Vol rate/Area] 23 mL/min/{1.73_m2} Low >60 [facility] Comment on above: Result Comment: Non- GFR Calc Performed By: #### L 500.2500, L100.0100, L501.4405, L501.9520 ####[facility] [address] [place], [address] Glucose [Mass/Vol] 158 mg/dL High 74-106 [facility] Comment on above: Result Comment: Fast ing Glucose result greater than or equal to 126 mg/dLsuggests DIABETES MELLITUS per A.D.A. criteria. Performed By: #### L 500.2500, L100.0100, L501.4405, L501.9520 ####[facility] [address] [place], [address] Potassium [Moles/Vol] 4.5 mmol/L Normal 3.5-5.1 [facility] Comment on above: Performed By: #### L 500.2500, L100.0100, L501.4405, L501.9520 ####[facility] [address] [place], [address] Sodium [Moles/Vol] 140 mmol/L Normal 136-145 [facility] Comment on above: Performed By: #### L 500.2500, L100.0100, L501.4405, L501.9520 ####[facility] [address] [place], [address] Urea nitrogen [Mass/Vol] 70 mg/dL High 7-18 [facility] Comment on above: Performed By: #### L 500.2500, L100.0100, L501.4405, L501.9520 ####[facility] [address] [place], [address] Bedside Glucoseon 03-01-2024 FINGERSTICK GLU 217 mg/dL High 74-106 [facility] Comment on above: Result Comment: MYKE GEMENT OF PATIENT CARE PER NURSING PROTOCOL Performed By: #### L 501.080 ####[facility] [address] [place], [address] FINGERSTICK GLU 160 mg/dL High 74-106 [facility] Comment on above: Result Comment: MYKE GEMENT OF PATIENT CARE PER NURSING PROTOCOL Performed By: #### L 501.080 ####[facility] [address] [place], [address] FINGERSTICK GLU 145 mg/dL High 74-106 [facility] Comment on above: Result Comment: MYKE SAGE OF PATIENT CARE PER NURSING PROTOCOL Performed By: #### L 501.080 ####[facility] [address] [place], [address] CBC W/Diff, Automatedon 12-2 Absolute Lymph 1.11 X10 3/uL Normal 0.83-4.51 [facility] Comment on above: Performed By: #### L 500.2500, L100.0100, L501.4405, L501.9520 ####[facility] [address] [place], [address] Absolute Neut 2.1 X10 3/uL Normal 2.0-7.7 [facility] Comment on above: Performed By: #### L 500.2500, L100.0100, L501.4405, L501.9520 ####[facility] [address] [place], [address] Basophils/100 WBC (Bld) 0.8 % Normal 0-1 [facility] Comment on above: Performed By: #### L 500.2500, L100.0100, L501.4405, L501.9520 ####[facility] [address] [place], [address] Eosinophils/100 WBC (Bld) 7.0 % High 0-5 [facility] Comment on above: Performed By: #### L 500.2500, L100.0100, L501.4405, L501.9520 ####[facility] [address] [place], [address] Erythrocyte distribution width (RBC) [Ratio] 16.1 % High 11.6-14.6 [facility] Comment on above: Performed By: #### L 500.2500, L100.0100, L501.4405, L501.9520 ####[facility] [address] [place], [address] Hematocrit (Bld) [Volume fraction] 24.8 % Low 40-54 [facility] Comment on above: Performed By: #### L 500.2500, L100.0100, L501.4405, L501.9520 ####[facility] [address] [place], [address] Hemoglobin (Bld) [Mass/Vol] 8.0 g/dL Low 13.0-16.5 [facility] Comment on above: Performed By: #### L 500.2500, L100.0100, L501.4405, L501.9520 ####[facility] [address] [place], [address] IG% 1.000 High 0.0-0.9 [facility] Comment on above: Result Comment: IG% - Immature Granulocytes (promyelocytes, myelocytes andmetamyelocytes) > 1% indicates that a LEFT SHIFT is Present. Performed By: #### L 500.2500, L100.0100, L501.4405, L501.9520 ####[facility] [address] [place], [address] Lymphocytes/100 WBC (Bld) 27.8 % Normal 19-41 [facility] Comment on above: Performed By: #### L 500.2500, L100.0100, L501.4405, L501.9520 ####[facility] [address] [place], [address] MCH (RBC) [Entitic mass] 31.6 pg Normal 27.0-32.0 [facility] Comment on above: Performed By: #### L 500.2500, L100.0100, L501.4405, L501.9520 ####[facility] [address] [place], [address] MCHC (RBC) [Mass/Vol] 32.3 g/dL Normal 32-36 [facility] Comment on above: Performed By: #### L 500.2500, L100.0100, L501.4405, L501.9520 ####[facility] [address] [place], [address] MCV (RBC) [Entitic vol] 98.0 fL High 80-94 [facility] Comment on above: Performed By: #### L 500.2500, L100.0100, L501.4405, L501.9520 ####[facility] [address] [place], [address] Monocytes/100 WBC (Bld) 12.0 % High 0-10 [facility] Comment on above: Performed By: #### L 500.2500, L100.0100, L501.4405, L501.9520 ####[facility] [address] [place], [address] Neutrophils/100 WBC (Bld) 51.4 % Normal 47-70 [facility] Comment on above: Performed By: #### L 500.2500, L100.0100, L501.4405, L501.9520 ####[facility] [address] [place], [address] Nucleated RBC (Bld) [#/Vol] 0 10*3/uL Normal 0-5 [facility] Comment on above: Performed By: #### L 500.2500, L100.0100, L501.4405, L501.9520 ####[facility] [address] [place], [address] Platelet mean volume (Bld) [Entitic vol] 10.4 fL Normal 6.2-12.0 [facility] Comment on above: Performed By: #### L 500.2500, L100.0100, L501.4405, L501.9520 ####[facility] [address] [place], [address] Platelets (Bld) [#/Vol] 134 10*3/uL Low 150-450 [facility] Comment on above: Performed By: #### L 500.2500, L100.0100, L501.4405, L501.9520 ####[facility] [address] [place], [address] RBC (Bld) [#/Vol] 2.53 10*6/uL Low 4.6-6.2 [facility] Comment on above: Performed By: #### L 500.2500, L100.0100, L501.4405, L501.9520 ####[facility] [address] [place], [address] RDW SD 57.1 fl High 35.1-43.9 [facility] Comment on above: Performed By: #### L 500.2500, L100.0100, L501.4405, L501.9520 ####[facility] [address] [place], [address] WBC (Bld) [#/Vol] 4.0 10*3/uL Low 4.4-11.0 [facility] Comment on above: Performed By: #### L 500.2500, L100.0100, L501.4405, L501.9520 ####[facility] [address] [place], [address] EGD Reporton 03-01-2024 EGD Report Normal [facility] normalized rat io (INR) calculationOrdered By: Eyal Meraz on 03-01-2024 INR Coag (Bld) [Relative time] 1.2 {INR} [facility] - Chemistry and C hemistry - challengeOrdered By: Eyal Meraz on 03-01-2024 AST [Catalytic activity/Vol] 15 U/L 15-37 [facility] MR/POSTOP.ANEon 03-01-2024 MR/POSTOP.ANE Normal [facility] MR/WPSVKAQN0vk 03-01-2024 MR/POSTOPAN2 Normal [facility] Partial Thromboplast Timeon 03-01-2024 aPTT Coag (Bld) [Time] 29.4 s Normal 24.1-36.2 [facility] Comment on above: Performed By: #### L 501.4100, L300.3900, L300.4310 ####[facility] [address] [place], [address] Prothrombin Time w/INRon INR Coag (PPP) [Relative time] 1.2 {INR} Normal [facility] Comment on above: Performed By: #### L 501.4100, L300.3900, L300.4310 ####[facility] [address] [place], [address] PT Coag (PPP) [Time] 15.4 s High 11.7-14.9 [facility] Comment on above: Performed By: #### L 501.4100, L300.3900, L300.4310 ####[facility] [address] [place], [address] Prothrombin timeOrdered By: Eyal Meraz on 03-01-2024 PT Coag (PPP) [Time] 15.4 s High 11.7-14.9 [facility] Serum or plasma alanine duque otransferase (ALT) measurementOrdered By: Eyal Meraz on 03-01-2024 ALT [Catalytic activity/Vol] 21 U/L 16-61 [facility] TSH QnOrdered By: Eyal persaud on 03-01-2024 Thyroid Stimulating Hormone (TSH) 1.620 uIU/mL 0.358-3.740 [facility] Thyroid Stim Hormone (TSH)on 03-01-2024 TSH 1.620 uIU/mL Normal 0.358-3.740 [facility] Comment on above: Performed By: #### L 500.2500, L100.0100, L501.4405, L501.9520 ####[facility] [address] [place], [address] aPTT Coag (PPP) [Time]Ordere d By: Eyal Meraz on 03-01-2024 aPTT Coag (Bld) [Time] 29.4 s 24.1-36.2 [facility] Basic Metabolic Profile (BMP )on 02-29-2024 BUN/CRE 22.6 RATIO High 12-29 [facility] Comment on above: Performed By: #### L 100.0100, L500.2500 ####[facility] [address] [place], [address] CA,Total 9.1 mg/dL Normal 8.5-10.1 [facility] Comment on above: Performed By: #### L 100.0100, L500.2500 ####[facility] [address] [place], [address] Chloride [Moles/Vol] 104 mmol/L Normal 98-107 [facility] Comment on above: Performed By: #### L 100.0100, L500.2500 ####[facility] [address] [place], [address] CO2 [Moles/Vol] 28.0 mmol/L Normal 21.0-32.0 [facility] Comment on above: Performed By: #### L 100.0100, L500.2500 ####[facility] [address] [place], [address] Creatinine [Mass/Vol] 2.61 mg/dL High 0.70-1.30 [facility] Comment on above: Result Comment: The validity of the calculated GFR GFRAA in patients over70 years has not been determined. Clinical correlation isessential. Performed By: #### L 100.0100, L500.2500 ####[facility] [address] [place], [address] ECRCL 20.94 ml/min Normal [facility] Comment on above: Performed By: #### L 100.0100, L500.2500 ####[facility] [address] [place], [address] EST GFR - AA 30 mL/min Low >60 [facility] Comment on above: Result Comment: Afri can Singaporean GFR Calc Performed By: #### L 100.0100, L500.2500 ####[facility] [address] [place], [address] GAP 7 Normal 5-15 [facility] Comment on above: Performed By: #### L 100.0100, L500.2500 ####[facility] [address] [place], [address] GFR/1.73 sq M.predicted among non-blacks MDRD (S/P/Bld) [Vol rate/Area] 25 mL/min/{1.73_m2} Low >60 [facility] Comment on above: Result Comment: Non- GFR Calc Performed By: #### L 100.0100, L500.2500 ####[facility] [address] [place], [address] Glucose [Mass/Vol] 155 mg/dL High 74-106 [facility] Comment on above: Result Comment: Fast ing Glucose result greater than or equal to 126 mg/dLsuggests DIABETES MELLITUS per A.D.A. criteria. Performed By: #### L 100.0100, L500.2500 ####[facility] [address] [place], [address] Potassium [Moles/Vol] 4.3 mmol/L Normal 3.5-5.1 [facility] Comment on above: Performed By: #### L 100.0100, L500.2500 ####[facility] [address] [place], [address] Sodium [Moles/Vol] 139 mmol/L Normal 136-145 [facility] Comment on above: Performed By: #### L 100.0100, L500.2500 ####[facility] [address] [place], [address] Urea nitrogen [Mass/Vol] 59 mg/dL High 7-18 [facility] Comment on above: Performed By: #### L 100.0100, L500.2500 ####[facility] [address] [place], [address] Bedside Glucoseon 02-29-2024 FINGERSTICK GLU 167 mg/dL High 74-106 [facility] Comment on above: Result Comment: MYKE GEMENT OF PATIENT CARE PER NURSING PROTOCOL Performed By: #### L 501.080 ####[facility] [address] [place], [address] FINGERSTICK GLU 180 mg/dL High 74-106 [facility] Comment on above: Result Comment: MYKE GEMENT OF PATIENT CARE PER NURSING PROTOCOL Performed By: #### L 501.080 ####[facility] [address] [place], [address] FINGERSTICK GLU 240 mg/dL High 74-106 [facility] Comment on above: Result Comment: MYKE GEMENT OF PATIENT CARE PER NURSING PROTOCOL Performed By: #### L 501.080 ####[facility] [address] [place], [address] FINGERSTICK GLU 144 mg/dL High 74-106 [facility] Comment on above: Result Comment: MYKE GEMENT OF PATIENT CARE PER NURSING PROTOCOL Performed By: #### L 501.080 ####[facility] [address] [place], [address] CBC W/Diff, Automatedon 12-2 0-2023 Absolute Lymph 1.04 X10 3/uL Normal 0.83-4.51 [facility] Comment on above: Performed By: #### L 100.0100, L500.2500 ####[facility] [address] [place], [address] Absolute Neut 2.5 X10 3/uL Normal 2.0-7.7 [facility] Comment on above: Performed By: #### L 100.0100, L500.2500 ####[facility] [address] [place], [address] Basophils/100 WBC (Bld) 0.9 % Normal 0-1 [facility] Comment on above: Performed By: #### L 100.0100, L500.2500 ####[facility] [address] [place], [address] Eosinophils/100 WBC (Bld) 5.7 % High 0-5 [facility] Comment on above: Performed By: #### L 100.0100, L500.2500 ####[facility] [address] [place], [address] Erythrocyte distribution width (RBC) [Ratio] 17.0 % High 11.6-14.6 [facility] Comment on above: Performed By: #### L 100.0100, L500.2500 ####[facility] [address] [place], [address] Hematocrit (Bld) [Volume fraction] 23.5 % Low 40-54 [facility] Comment on above: Performed By: #### L 100.0100, L500.2500 ####[facility] [address] [place], [address] Hemoglobin (Bld) [Mass/Vol] 7.6 g/dL Low 13.0-16.5 [facility] Comment on above: Performed By: #### L 100.0100, L500.2500 ####[facility] [address] [place], [address] IG% 0.700 Normal 0.0-0.9 [facility] Comment on above: Result Comment: IG% - Immature Granulocytes (promyelocytes, myelocytes andmetamyelocytes) > 1% indicates that a LEFT SHIFT is Present. Performed By: #### L 100.0100, L500.2500 ####[facility] [address] [place], [address] Lymphocytes/100 WBC (Bld) 23.8 % Normal 19-41 [facility] Comment on above: Performed By: #### L 100.0100, L500.2500 ####[facility] [address] [place], [address] MCH (RBC) [Entitic mass] 31.8 pg Normal 27.0-32.0 [facility] Comment on above: Performed By: #### L 100.0100, L500.2500 ####[facility] [address] [place], [address] MCHC (RBC) [Mass/Vol] 32.3 g/dL Normal 32-36 [facility] Comment on above: Performed By: #### L 100.0100, L500.2500 ####[facility] [address] [place], [address] MCV (RBC) [Entitic vol] 98.3 fL High 80-94 [facility] Comment on above: Performed By: #### L 100.0100, L500.2500 ####[facility] [address] [place], [address] Monocytes/100 WBC (Bld) 10.8 % High 0-10 [facility] Comment on above: Performed By: #### L 100.0100, L500.2500 ####[facility] [address] [place], [address] Neutrophils/100 WBC (Bld) 58.1 % Normal 47-70 [facility] Comment on above: Performed By: #### L 100.0100, L500.2500 ####[facility] [address] [place], [address] Nucleated RBC (Bld) [#/Vol] 0 10*3/uL Normal 0-5 [facility] Comment on above: Performed By: #### L 100.0100, L500.2500 ####[facility] [address] [place], [address] Platelet mean volume (Bld) [Entitic vol] 10.5 fL Normal 6.2-12.0 [facility] Comment on above: Performed By: #### L 100.0100, L500.2500 ####[facility] [address] [place], [address] Platelets (Bld) [#/Vol] 135 10*3/uL Low 150-450 [facility] Comment on above: Performed By: #### L 100.0100, L500.2500 ####[facility] [address] [place], [address] RBC (Bld) [#/Vol] 2.39 10*6/uL Low 4.6-6.2 [facility] Comment on above: Performed By: #### L 100.0100, L500.2500 ####[facility] [address] [place], [address] RDW SD 59.0 fl High 35.1-43.9 [facility] Comment on above: Performed By: #### L 100.0100, L500.2500 ####[facility] [address] [place], [address] WBC (Bld) [#/Vol] 4.4 10*3/uL Normal 4.4-11.0 [facility] Comment on above: Performed By: #### L 100.0100, L500.2500 ####[facility] [address] [place], [address] MR/CON.PCM.GIon 02-29-2024 MR/CON.PCM.GI Normal [facility] 12 Lead EKGon 02-28-2024 12 Lead EKG Normal [facility] BNP (brain natriuretic pepti de measurement)Ordered By: Yuridia Combs on 02-28-2024 Natriuretic peptide B (Bld) [Mass/Vol] 87.6 pg/mL 0-100 [facility] BNP,B-Type NATRIURETIC PEPTI Nico 02-28-2024 Natriuretic peptide B (Bld) [Mass/Vol] 87.6 pg/mL Normal 0-100 [facility] Comment on above: Performed By: #### L 503.6620 ####[facility] [address] [place], [address] BRCon 02-28-2024 RC Normal [facility] Comment on above: Result Comment: [id number] AN RC TRANSFUSED 02/28/24 1721 Performed By: #### B RC ####[facility] [address] [place], [address] Basic Metabolic Profile (BMP )on 02-28-2024 BUN/CRE 20.6 RATIO High - [facility] Comment on above: Order Comment: 'TROP ' Serial specimen #1, #2 or #3: 1 Performed By: #### L 100.0100, L500.2500, L501.4020 ####[facility] [address] [place], [address] CA,Total 9.0 mg/dL Normal 8.5-10.1 [facility] Comment on above: Order Comment: 'TROP ' Serial specimen #1, #2 or #3: 1 Performed By: #### L 100.0100, L500.2500, L501.4020 ####[facility] [address] [place], [address] Chloride [Moles/Vol] 104 mmol/L Normal 98-107 [facility] Comment on above: Order Comment: 'TROP ' Serial specimen #1, #2 or #3: 1 Performed By: #### L 100.0100, L500.2500, L501.4020 ####[facility] [address] [place], [address] CO2 [Moles/Vol] 28.0 mmol/L Normal 21.0-32.0 [facility] Comment on above: Order Comment: 'TROP ' Serial specimen #1, #2 or #3: 1 Performed By: #### L 100.0100, L500.2500, L501.4020 ####[facility] [address] [place], [address] Creatinine [Mass/Vol] 2.96 mg/dL High 0.70-1.30 [facility] Comment on above: Order Comment: 'TROP ' Serial specimen #1, #2 or #3: 1 Result Comment: The validity of the calculated GFR GFRAA in patients over70 years has not been determined. Clinical correlation isessential. Performed By: #### L 100.0100, L500.2500, L501.4020 ####[facility] [address] [place], [address] ECRCL 18.85 ml/min Normal [facility] Comment on above: Order Comment: 'TROP ' Serial specimen #1, #2 or #3: 1 Performed By: #### L 100.0100, L500.2500, L501.4020 ####[facility] [address] [place], [address] EST GFR - AA 26 mL/min Low >60 [facility] Comment on above: Order Comment: 'TROP ' Serial specimen #1, #2 or #3: 1 Result Comment: Afri can Singaporean GFR Calc Performed By: #### L 100.0100, L500.2500, L501.4020 ####[facility] [address] [place], [address] GAP 7 Normal 5-15 [facility] Comment on above: Order Comment: 'TROP ' Serial specimen #1, #2 or #3: 1 Performed By: #### L 100.0100, L500.2500, L501.4020 ####[facility] [address] [place], [address] GFR/1.73 sq M.predicted among non-blacks MDRD (S/P/Bld) [Vol rate/Area] 22 mL/min/{1.73_m2} Low >60 [facility] Comment on above: Order Comment: 'TROP ' Serial specimen #1, #2 or #3: 1 Result Comment: Non- GFR Calc Performed By: #### L 100.0100, L500.2500, L501.4020 ####[facility] [address] [place], [address] Glucose [Mass/Vol] 317 mg/dL High 74-106 [facility] Comment on above: Order Comment: 'TROP ' Serial specimen #1, #2 or #3: 1 Result Comment: Gluc ose result greater than or equal to 200 mg/dLsuggests DIABETES MELLITUS per A.D.A. criteria. Performed By: #### L 100.0100, L500.2500, L501.4020 ####[facility] [address] [place], [address] Potassium [Moles/Vol] 4.2 mmol/L Normal 3.5-5.1 [facility] Comment on above: Order Comment: 'TROP ' Serial specimen #1, #2 or #3: 1 Performed By: #### L 100.0100, L500.2500, L501.4020 ####[facility] [address] [place], [address] Sodium [Moles/Vol] 139 mmol/L Normal 136-145 [facility] Comment on above: Order Comment: 'TROP ' Serial specimen #1, #2 or #3: 1 Performed By: #### L 100.0100, L500.2500, L501.4020 ####[facility] [address] [place], [address] Urea nitrogen [Mass/Vol] 61 mg/dL High 7-18 [facility] Comment on above: Order Comment: 'TROP ' Serial specimen #1, #2 or #3: 1 Performed By: #### L 100.0100, L500.2500, L501.4020 ####[facility] [address] [place], [address] Bedside Glucoseon 02-27-2023 FINGERSTICK GLU 245 mg/dL High 74-106 [facility] Comment on above: Result Comment: MYKE SAGE OF PATIENT CARE PER NURSING PROTOCOL Performed By: #### L 501.080 ####[facility] [address] [place], [address] CBC W/Diff, Automatedon 02-09 Absolute Lymph 0.78 X10 3/uL Low 0.83-4.51 [facility] Comment on above: Performed By: #### L 100.0100, L500.2500, L501.4020 ####[facility] [address] [place], [address] Absolute Neut 2.2 X10 3/uL Normal 2.0-7.7 [facility] Comment on above: Performed By: #### L 100.0100, L500.2500, L501.4020 ####[facility] [address] [place], [address] Basophils/100 WBC (Bld) 0.6 % Normal 0-1 [facility] Comment on above: Performed By: #### L 100.0100, L500.2500, L501.4020 ####[facility] [address] [place], [address] Eosinophils/100 WBC (Bld) 4.7 % Normal 0-5 [facility] Comment on above: Performed By: #### L 100.0100, L500.2500, L501.4020 ####[facility] [address], [address] Erythrocyte distribution width (RBC) [Ratio] 15.9 % High 11.6-14.6 [facility] Comment on above: Performed By: #### L 100.0100, L500.2500, L501.4020 ####[facility] [address] [place], [address] Hematocrit (Bld) [Volume fraction] 22.2 % Low 40-54 [facility] Comment on above: Performed By: #### L 100.0100, L500.2500, L501.4020 ####[facility] [address] [place], [address] Hemoglobin (Bld) [Mass/Vol] 6.9 g/dL Low 13.0-16.5 [facility] Comment on above: Performed By: #### L 100.0100, L500.2500, L501.4020 ####[facility] [address] [place], [address] IG% 1.100 High 0.0-0.9 [facility] Comment on above: Result Comment: IG% - Immature Granulocytes (promyelocytes, myelocytes andmetamyelocytes) > 1% indicates that a LEFT SHIFT is Present. Performed By: #### L 100.0100, L500.2500, L501.4020 ####[facility] [address] [place], [address] Lymphocytes/100 WBC (Bld) 21.8 % Normal 19-41 [facility] Comment on above: Performed By: #### L 100.0100, L500.2500, L501.4020 ####[facility] [address], [address] MCH (RBC) [Entitic mass] 31.9 pg Normal 27.0-32.0 [facility] Comment on above: Performed By: #### L 100.0100, L500.2500, L501.4020 ####[facility] [address] [place], [address] MCHC (RBC) [Mass/Vol] 31.1 g/dL Low 32-36 [facility] Comment on above: Performed By: #### L 100.0100, L500.2500, L501.4020 ####[facility] [address] [place], [address] MCV (RBC) [Entitic vol] 102.8 fL High 80-94 [facility] Comment on above: Performed By: #### L 100.0100, L500.2500, L501.4020 ####[facility] [address] [place], [address] Monocytes/100 WBC (Bld) 10.1 % High 0-10 [facility] Comment on above: Performed By: #### L 100.0100, L500.2500, L501.4020 ####[facility] [address] [place], [address] Neutrophils/100 WBC (Bld) 61.7 % Normal 47-70 [facility] Comment on above: Performed By: #### L 100.0100, L500.2500, L501.4020 ####[facility] [address] [place], [address] Nucleated RBC (Bld) [#/Vol] 0 10*3/uL Normal 0-5 [facility] Comment on above: Performed By: #### L 100.0100, L500.2500, L501.4020 ####[facility] [address] [place], [address] Platelet mean volume (Bld) [Entitic vol] 10.1 fL Normal 6.2-12.0 [facility] Comment on above: Performed By: #### L 100.0100, L500.2500, L501.4020 ####[facility] [address] [place], [address] Platelets (Bld) [#/Vol] 135 10*3/uL Low 150-450 [facility] Comment on above: Performed By: #### L 100.0100, L500.2500, L501.4020 ####[facility] [address] [place], [address] RBC (Bld) [#/Vol] 2.16 10*6/uL Low 4.6-6.2 [facility] Comment on above: Performed By: #### L 100.0100, L500.2500, L501.4020 ####[facility] [address] [place], [address] RDW SD 58.4 fl High 35.1-43.9 [facility] Comment on above: Performed By: #### L 100.0100, L500.2500, L501.4020 ####[facility] [address] [place], [address] WBC (Bld) [#/Vol] 3.6 10*3/uL Low 4.4-11.0 [facility] Comment on above: Performed By: #### L 100.0100, L500.2500, L501.4020 ####[facility] [address] [place], [address] Chest 1 View (Portable)on Chest 1 View (Portable) Normal [facility] Emergency Department Summary on 02-28-2024 Emergency Department Summary Normal [facility] Emergency Department Summary Normal [facility] H AND P Exam - Hospital[place] 02-28-2024 H&P Exam - Hospitalist Normal [facility] Influenza virus A and B and SARS-CoV-2 (COVID-19) and Respiratory syncytial virus RNAOrdered By: Yuridia Combs on 02-28-2024 SARS-CoV-2 (COVID-19) RNA JOSH+probe Ql (Unsp spec) [facility] L501.4020on 02-28-2024 TROPONIN-I HS 31 pg/mL Normal 3.0-78.0 [facility] Comment on above: Order Comment: 'TROP ' Serial specimen #1, #2 or #3: 1 Result Comment: Plea se Note: New Test Units and Gender Specific Reference Ranges. For more information see Policy Stat Procedure Burt High Sensitivity Troponin (TNIH) and attachments. Performed By: #### L 100.0100, L500.2500, L501.4020 ####[facility] [address] [place], [address] Lower GI hemoglobin IA Ql (S tl)Ordered By: Yuridia Combs on 02-28-2024 Stool Occult Blood (CLARY) [facility] M100.678on 02-28-2024 M100.678 Pending SARS-CoV-2 (COVID 19) Negative INFLUENZA A Negative INFLUENZA B Negative RSV PCR Negative Normal [facility] Comment on above: Performed By: #### M 100.678 ####[facility] [address] [place], [place], [address] Stool Occult Blood iFOBon STOB Negative Normal [facility] Comment on above: Performed By: #### M 100.7900 ####[facility] [address] [place], [address] Troponin IOrdered By: Yuridia pereira on 02-28-2024 Troponin I High Sensitivity 31 pg/mL 3.0-78.0 [facility] Comment on above: Please Note: New Arti t Units and Gender Specific Reference Ranges. For more information see Policy Stat Procedure Burt High Sensitivity Troponin (TNIH) and attachments. Type AND Screenon 02-28-2024 Ab SCREEN GEL Negative Normal [facility] Comment on above: Order Comment: A Performed By: #### B TS ####[facility] [address] [place], [address] Basic Metabolic Profile (BMP )on 02-21-2024 BUN/CRE 25.2 RATIO High 10-20 [facility] Comment on above: Performed By: #### L 100.0100, L500.2500 ####[facility] [address] [place], [address] CA,Total 9.9 mg/dL Normal 8.5-10.1 [facility] Comment on above: Performed By: #### L 100.0100, L500.2500 ####[facility] [address] [place], [address] Chloride [Moles/Vol] 105 mmol/L Normal 98-107 [facility] Comment on above: Performed By: #### L 100.0100, L500.2500 ####[facility] [address] [place], [address] CO2 [Moles/Vol] 30.0 mmol/L Normal 21.0-32.0 [facility] Comment on above: Performed By: #### L 100.0100, L500.2500 ####[facility] [address] [place], [address] Creatinine [Mass/Vol] 2.50 mg/dL High 0.70-1.30 [facility] Comment on above: Result Comment: The validity of the calculated GFR GFRAA in patients over70 years has not been determined. Clinical correlation isessential. Performed By: #### L 100.0100, L500.2500 ####[facility] [address] [place], [address] EST GFR - AA 32 mL/min Low >60 [facility] Comment on above: Result Comment: Afri can Singaporean GFR Calc Performed By: #### L 100.0100, L500.2500 ####[facility] [address] [place], [address] GAP 6 Normal 5-15 [facility] Comment on above: Performed By: #### L 100.0100, L500.2500 ####[facility] [address] [place], [address] GFR/1.73 sq M.predicted among non-blacks MDRD (S/P/Bld) [Vol rate/Area] 26 mL/min/{1.73_m2} Low >60 [facility] Comment on above: Result Comment: Non- GFR Calc Performed By: #### L 100.0100, L500.2500 ####[facility] [address] [place], [address] Glucose [Mass/Vol] 181 mg/dL High 74-106 [facility] Comment on above: Result Comment: Fast ing Glucose result greater than or equal to 126 mg/dLsuggests DIABETES MELLITUS per A.D.A. criteria. Performed By: #### L 100.0100, L500.2500 ####[facility] [address] [place], [address] Potassium [Moles/Vol] 5.1 mmol/L Normal 3.5-5.1 [facility] Comment on above: Performed By: #### L 100.0100, L500.2500 ####[facility] [address] [place], [address] Sodium [Moles/Vol] 141 mmol/L Normal 136-145 [facility] Comment on above: Performed By: #### L 100.0100, L500.2500 ####[facility] [address] [place], [address] Urea nitrogen [Mass/Vol] 63 mg/dL High 7-18 [facility] Comment on above: Performed By: #### L 100.0100, L500.2500 ####[facility] [address] [place], [address] CBC W/Diff, Automatedon 12- Absolute Lymph 1.21 X10 3/uL Normal 0.83-4.51 [facility] Comment on above: Performed By: #### L 100.0100, L500.2500 ####[facility] [address] [place], [address] Absolute Neut 4.8 X10 3/uL Normal 2.0-7.7 [facility] Comment on above: Performed By: #### L 100.0100, L500.2500 ####[facility] [address] [place], [address] Basophils/100 WBC (Bld) 0.4 % Normal 0-1 [facility] Comment on above: Performed By: #### L 100.0100, L500.2500 ####[facility] [address] [place], [address] Eosinophils/100 WBC (Bld) 3.3 % Normal 0-5 [facility] Comment on above: Performed By: #### L 100.0100, L500.2500 ####[facility] [address] [place], [address] Erythrocyte distribution width (RBC) [Ratio] 13.9 % Normal 11.6-14.6 [facility] Comment on above: Performed By: #### L 100.0100, L500.2500 ####[facility] [address] [place], [address] Hematocrit (Bld) [Volume fraction] 23.2 % Low 40-54 [facility] Comment on above: Performed By: #### L 100.0100, L500.2500 ####[facility] [address] [place], [address] Hemoglobin (Bld) [Mass/Vol] 7.1 g/dL Low 13.0-16.5 [facility] Comment on above: Performed By: #### L 100.0100, L500.2500 ####[facility] [address] [place], [address] IG% 0.300 Normal 0.0-0.9 [facility] Comment on above: Result Comment: IG% - Immature Granulocytes (promyelocytes, myelocytes andmetamyelocytes) > 1% indicates that a LEFT SHIFT is Present. Performed By: #### L 100.0100, L500.2500 ####[facility] [address] [place], [address] Lymphocytes/100 WBC (Bld) 18.1 % Low 19-41 [facility] Comment on above: Performed By: #### L 100.0100, L500.2500 ####[facility] [address] [place], [address] MCH (RBC) [Entitic mass] 30.9 pg Normal 27.0-32.0 [facility] Comment on above: Performed By: #### L 100.0100, L500.2500 ####[facility] [address] [place], [address] MCHC (RBC) [Mass/Vol] 30.6 g/dL Low 32-36 [facility] Comment on above: Performed By: #### L 100.0100, L500.2500 ####[facility] [address] [place], [address] MCV (RBC) [Entitic vol] 100.9 fL High 80-94 [facility] Comment on above: Performed By: #### L 100.0100, L500.2500 ####[facility] [address] [place], [address] Monocytes/100 WBC (Bld) 6.1 % Normal 0-10 [facility] Comment on above: Performed By: #### L 100.0100, L500.2500 ####[facility] [address] [place], [address] Neutrophils/100 WBC (Bld) 71.8 % High 47-70 [facility] Comment on above: Performed By: #### L 100.0100, L500.2500 ####[facility] [address] [place], [address] Nucleated RBC (Bld) [#/Vol] 0 10*3/uL Normal 0-5 [facility] Comment on above: Performed By: #### L 100.0100, L500.2500 ####[facility] [address] [place], [address] Platelet mean volume (Bld) [Entitic vol] 11.2 fL Normal 6.2-12.0 [facility] Comment on above: Performed By: #### L 100.0100, L500.2500 ####[facility] [address] [place], [address] Platelets (Bld) [#/Vol] 124 10*3/uL Low 150-450 [facility] Comment on above: Performed By: #### L 100.0100, L500.2500 ####[facility] [address] [place], [address] RBC (Bld) [#/Vol] 2.30 10*6/uL Low 4.6-6.2 [facility] Comment on above: Performed By: #### L 100.0100, L500.2500 ####[facility] [address] [place], [address] RDW SD 51.2 fl High 35.1-43.9 [facility] Comment on above: Performed By: #### L 100.0100, L500.2500 ####[facility] [address] [place], [address] WBC (Bld) [#/Vol] 6.7 10*3/uL Normal 4.4-11.0 [facility] Comment on above: Performed By: #### L 100.0100, L500.2500 ####[facility] [address] [place], [address] CBC W/Diff, Automatedon 12-0 2-2023 Absolute Lymph 0.79 X10 3/uL Low 0.83-4.51 [facility] Comment on above: Order Comment: Order Date: 02/08/24Order Info: 4-1 - CBCD Performed By: #### L 100.0100, L501.9520 ####[facility] [address] [place], [address] Absolute Neut 7.0 X10 3/uL Normal 2.0-7.7 [facility] Comment on above: Order Comment: Order Date: 02/08/24Order Info: 4-1 - CBCD Performed By: #### L 100.0100, L501.9520 ####[facility] [address] [place], [address] Basophils/100 WBC (Bld) 0.1 % Normal 0-1 [facility] Comment on above: Order Comment: Order Date: 02/08/24Order Info: 183-1 - CBCD Performed By: #### L 100.0100, L501.9520 ####[facility] [address] [place], [address] Eosinophils/100 WBC (Bld) 1.5 % Normal 0-5 [facility] Comment on above: Order Comment: Order Date: 02/08/24Order Info: 0184-1 - CBCD Performed By: #### L 100.0100, L501.9520 ####[facility] [address] [place], [address] Erythrocyte distribution width (RBC) [Ratio] 15.3 % High 11.6-14.6 [facility] Comment on above: Order Comment: Order Date: 02/08/24Order Info: 0184-1 - CBCD Performed By: #### L 100.0100, L501.9520 ####[facility] [address] [place], [address] Hematocrit (Bld) [Volume fraction] 28.4 % Low 40-54 [facility] Comment on above: Order Comment: Order Date: 02/08/24Order Info: 183- - CBCD Performed By: #### L 100.0100, L501.9520 ####[facility] [address] [place], [address] Hemoglobin (Bld) [Mass/Vol] 8.6 g/dL Low 13.0-16.5 [facility] Comment on above: Order Comment: Order Date: 02/08/24Order Info: 183- - CBCD Performed By: #### L 100.0100, L501.9520 ####[facility] [address] [place], [address] IG% 3.400 High 0.0-0.9 [facility] Comment on above: Order Comment: Order Date: 02/08/24Order Info: 183- - CBCD Result Comment: IG% - Immature Granulocytes (promyelocytes, myelocytes andmetamyelocytes) > 1% indicates that a LEFT SHIFT is Present. Performed By: #### L 100.0100, L501.9520 ####[facility] [address] [place], [address] Lymphocytes/100 WBC (Bld) 9.2 % Low 19-41 [facility] Comment on above: Order Comment: Order Date: 02/08/24Order Info: 018- - CBCD Performed By: #### L 100.0100, L501.9520 ####[facility] [address] [place], [address] MCH (RBC) [Entitic mass] 30.8 pg Normal 27.0-32.0 [facility] Comment on above: Order Comment: Order Date: 02/08/24Order Info: 4- - CBCD Performed By: #### L 100.0100, L501.9520 ####[facility] [address] [place], [address] MCHC (RBC) [Mass/Vol] 30.3 g/dL Low 32-36 [facility] Comment on above: Order Comment: Order Date: 02/08/24Order Info: 4-1 - CBCD Performed By: #### L 100.0100, L501.9520 ####[facility] [address] [place], [address] MCV (RBC) [Entitic vol] 101.8 fL High 80-94 [facility] Comment on above: Order Comment: Order Date: 02/08/24Order Info: 183- - CBCD Performed By: #### L 100.0100, L501.9520 ####[facility] [address] [place], [address] Monocytes/100 WBC (Bld) 3.6 % Normal 0-10 [facility] Comment on above: Order Comment: Order Date: 02/08/24Order Info: 183- - CBCD Performed By: #### L 100.0100, L501.9520 ####[facility] [address] [place], [address] Neutrophils/100 WBC (Bld) 82.2 % High 47-70 [facility] Comment on above: Order Comment: Order Date: 02/08/24Order Info: 4-1 - CBCD Performed By: #### L 100.0100, L501.9520 ####[facility] [address] [place], [address] Nucleated RBC (Bld) [#/Vol] 0 10*3/uL Normal 0-5 [facility] Comment on above: Order Comment: Order Date: 02/08/24Order Info: 4-1 - CBCD Performed By: #### L 100.0100, L501.9520 ####[facility] [address] [place], [address] Platelet mean volume (Bld) [Entitic vol] 11.0 fL Normal 6.2-12.0 [facility] Comment on above: Order Comment: Order Date: 02/08/24Order Info: 0184-1 - CBCD Performed By: #### L 100.0100, L501.9520 ####[facility] [address] [place], [address] Platelets (Bld) [#/Vol] 121 10*3/uL Low 150-450 [facility] Comment on above: Order Comment: Order Date: 02/08/24Order Info: 4-1 - CBCD Performed By: #### L 100.0100, L501.9520 ####[facility] [address] [place], [address] RBC (Bld) [#/Vol] 2.79 10*6/uL Low 4.6-6.2 [facility] Comment on above: Order Comment: Order Date: 02/08/24Order Info: 018- - CBCD Performed By: #### L 100.0100, L501.9520 ####[facility] [address] [place], [address] RDW SD 57.0 fl High 35.1-43.9 [facility] Comment on above: Order Comment: Order Date: 02/08/24Order Info: 0184-1 - CBCD Performed By: #### L 100.0100, L501.9520 ####[facility] [address] [place], [address] WBC (Bld) [#/Vol] 8.6 10*3/uL Normal 4.4-11.0 [facility] Comment on above: Order Comment: Order Date: 02/08/24Order Info: 0184-1 - CBCD Performed By: #### L 100.0100, L501.9520 ####[facility] [address] [place], [address] Thyroid Stim Hormone (TSH)on 02-11-2024 TSH 6.340 uIU/mL High 0.358-3.740 [facility] Comment on above: Order Comment: Order Date: 02/08/24Order Info: 3016-3 - TSHComments: hospital follow up Performed By: #### L 100.0100, L501.9520 ####[facility] [address] [place], [address] Basic Metabolic Profile (BMP )on 02-05-2024 BUN Normal 7-18 [facility] Comment on above: Result Comment: Canc elled via OM: Order cancelled - Patient discharged Performed By: #### L 100.0100, L500.2500 ####[facility] [address] [place], [address] BUN/CRE Normal 10-20 [facility] Comment on above: Result Comment: Canc elled via OM: Order cancelled - Patient discharged Performed By: #### L 100.0100, L500.2500 ####[facility] [address] [place], [address] CA,Total Normal 8.5-10.1 [facility] Comment on above: Result Comment: Canc elled via OM: Order cancelled - Patient discharged Performed By: #### L 100.0100, L500.2500 ####[facility] [address] [place], [address] CL Normal 98-107 [facility] Comment on above: Result Comment: Canc elled via OM: Order cancelled - Patient discharged Performed By: #### L 100.0100, L500.2500 ####[facility] [address] [place], [address] CO2 Normal 21.0-32.0 [facility] Comment on above: Result Comment: Canc elled via OM: Order cancelled - Patient discharged Performed By: #### L 100.0100, L500.2500 ####[facility] [address] [place], [address] CREAT,SERUM Normal 0.70-1.30 [facility] Comment on above: Result Comment: Canc elled via OM: Order cancelled - Patient discharged Performed By: #### L 100.0100, L500.2500 ####[facility] [address] [place], [address] EST GFR Normal >60 [facility] Comment on above: Result Comment: Canc elled via OM: Order cancelled - Patient discharged Performed By: #### L 100.0100, L500.2500 ####[facility] [address] [place], [address] EST GFR - AA Normal >60 [facility] Comment on above: Result Comment: Canc elled via OM: Order cancelled - Patient discharged Performed By: #### L 100.0100, L500.2500 ####[facility] [address] [place], [address] GAP Normal 5-15 [facility] Comment on above: Result Comment: Canc elled via OM: Order cancelled - Patient discharged Performed By: #### L 100.0100, L500.2500 ####[facility] [address] [place], [address] GLU Normal 74-106 [facility] Comment on above: Result Comment: Canc elled via OM: Order cancelled - Patient discharged Performed By: #### L 100.0100, L500.2500 ####[facility] [address] [place], [address] Potassium Normal 3.5-5.1 [facility] Comment on above: Result Comment: Canc elled via OM: Order cancelled - Patient discharged Performed By: #### L 100.0100, L500.2500 ####[facility] [address] [place], [address] Basic Metabolic Profile (BMP) Normal 136-145 [facility] Comment on above: Result Comment: Canc elled via OM: Order cancelled - Patient discharged Performed By: #### L 100.0100, L500.2500 ####[facility] [address] [place], [address] CBC W/Diff, Automatedon 11-2 Absolute Neut Normal 2.0-7.7 [facility] Comment on above: Result Comment: Canc elled via OM: Order cancelled - Patient discharged Performed By: #### L 100.0100, L500.2500 ####[facility] [address] [place], [address] HCT Normal 40-54 [facility] Comment on above: Result Comment: Canc elled via OM: Order cancelled - Patient discharged Performed By: #### L 100.0100, L500.2500 ####[facility] [address] [place], [address] HGB Normal 13.0-16.5 [facility] Comment on above: Result Comment: Canc elled via OM: Order cancelled - Patient discharged Performed By: #### L 100.0100, L500.2500 ####[facility] [address] [place], [address] MCH Normal 27.0-32.0 [facility] Comment on above: Result Comment: Canc elled via OM: Order cancelled - Patient discharged Performed By: #### L 100.0100, L500.2500 ####[facility] [address] [place], [address] MCHC Normal 32-36 [facility] Comment on above: Result Comment: Canc elled via OM: Order cancelled - Patient discharged Performed By: #### L 100.0100, L500.2500 ####[facility] [address] [place], [address] MCV Normal 80-94 [facility] Comment on above: Result Comment: Canc elled via OM: Order cancelled - Patient discharged Performed By: #### L 100.0100, L500.2500 ####[facility] [address] [place], [address] NEUT% Normal 47-70 [facility] Comment on above: Result Comment: Canc elled via OM: Order cancelled - Patient discharged Performed By: #### L 100.0100, L500.2500 ####[facility] [address] [place], [address] PLT Normal 150-450 [facility] Comment on above: Result Comment: Canc elled via OM: Order cancelled - Patient discharged Performed By: #### L 100.0100, L500.2500 ####[facility] [address] [place], [address] RBC Normal 4.6-6.2 [facility] Comment on above: Result Comment: Canc elled via OM: Order cancelled - Patient discharged Performed By: #### L 100.0100, L500.2500 ####[facility] [address] [place], [address] RDW CV Normal 11.6-14.6 [facility] Comment on above: Result Comment: Canc elled via OM: Order cancelled - Patient discharged Performed By: #### L 100.0100, L500.2500 ####[facility] [address] [place], [address] RDW SD Normal 35.1-43.9 [facility] Comment on above: Result Comment: Canc elled via OM: Order cancelled - Patient discharged Performed By: #### L 100.0100, L500.2500 ####[facility] [address] [place], [address] WBC Normal 4.4-11.0 [facility] Comment on above: Result Comment: Canc elled via OM: Order cancelled - Patient discharged Performed By: #### L 100.0100, L500.2500 ####[facility] [address] [place], [address] Basic Metabolic Profile (BMP )on 02-04-2024 BUN/CRE 30.5 RATIO High 10-20 [facility] Comment on above: Performed By: #### L 500.2500, L100.0100 ####[facility] [address] [place], [address] CA,Total 9.4 mg/dL Normal 8.5-10.1 [facility] Comment on above: Performed By: #### L 500.2500, L100.0100 ####[facility] [address] [place], [address] Chloride [Moles/Vol] 108 mmol/L High 98-107 [facility] Comment on above: Performed By: #### L 500.2500, L100.0100 ####[facility] [address] [place], [address] CO2 [Moles/Vol] 24.0 mmol/L Normal 21.0-32.0 [facility] Comment on above: Performed By: #### L 500.2500, L100.0100 ####[facility] [address] [place], [address] Creatinine [Mass/Vol] 2.39 mg/dL High 0.70-1.30 [facility] Comment on above: Result Comment: The validity of the calculated GFR GFRAA in patients over70 years has not been determined. Clinical correlation isessential. Performed By: #### L 500.2500, L100.0100 ####[facility] [address] [place], [address] ECRCL 22.96 ml/min Normal [facility] Comment on above: Performed By: #### L 500.2500, L100.0100 ####[facility] [address] [place], [address] EST GFR - AA 33 mL/min Low >60 [facility] Comment on above: Result Comment: Afri can [place]an GFR Calc Performed By: #### L 500.2500, L100.0100 ####[facility] [address] [place], [address] GAP 7 Normal 5-15 [facility] Comment on above: Performed By: #### L 500.2500, L100.0100 ####[facility] [address] [place], [address] GFR/1.73 sq M.predicted among non-blacks MDRD (S/P/Bld) [Vol rate/Area] 28 mL/min/{1.73_m2} Low >60 [facility] Comment on above: Result Comment: Non- GFR Calc Performed By: #### L 500.2500, L100.0100 ####[facility] [address] [place], [address] Glucose [Mass/Vol] 220 mg/dL High 74-106 [facility] Comment on above: Result Comment: Gluc ose result greater than or equal to 200 mg/dLsuggests DIABETES MELLITUS per A.D.A. criteria. Performed By: #### L 500.2500, L100.0100 ####[facility] [address] [place], [address] Potassium [Moles/Vol] 5.2 mmol/L High 3.5-5.1 [facility] Comment on above: Performed By: #### L 500.2500, L100.0100 ####[facility] [address] [place], [address] Sodium [Moles/Vol] 139 mmol/L Normal 136-145 [facility] Comment on above: Performed By: #### L 500.2500, L100.0100 ####[facility] [address], [address] Urea nitrogen [Mass/Vol] 73 mg/dL High 7-18 [facility] Comment on above: Performed By: #### L 500.2500, L100.0100 ####[facility] [address] [place], [address] Bedside Glucoseon 02-03-2023 FINGERSTICK GLU 259 mg/dL High 74-106 [facility] Comment on above: Result Comment: MYKE GEMENT OF PATIENT CARE PER NURSING PROTOCOL Performed By: #### L 501.080 ####[facility] [address], [address] FINGERSTICK GLU 158 mg/dL High 74-106 [facility] Comment on above: Result Comment: MYKE GEMENT OF PATIENT CARE PER NURSING PROTOCOL Performed By: #### L 501.080 ####[facility] [address], [address] FINGERSTICK GLU 196 mg/dL High 74-106 [facility] Comment on above: Result Comment: MYKE GEMENT OF PATIENT CARE PER NURSING PROTOCOL Performed By: #### L 501.080 ####[facility] [address] [place], [address] CBC W/Diff, Automatedon 11- Absolute Lymph 0.45 X10 3/uL Low 0.83-4.51 [facility] Comment on above: Performed By: #### L 500.2500, L100.0100 ####[facility] [address] [place], [address] Absolute Neut 7.9 X10 3/uL High 2.0-7.7 [facility] Comment on above: Performed By: #### L 500.2500, L100.0100 ####[facility] [address] [place], [address] Basophils/100 WBC (Bld) 0.1 % Normal 0-1 [facility] Comment on above: Performed By: #### L 500.2500, L100.0100 ####[facility] [address] [place], [address] Eosinophils/100 WBC (Bld) 0.0 % Normal 0-5 [facility] Comment on above: Performed By: #### L 500.2500, L100.0100 ####[facility] [address] [place], [address] Erythrocyte distribution width (RBC) [Ratio] 14.9 % High 11.6-14.6 [facility] Comment on above: Performed By: #### L 500.2500, L100.0100 ####[facility] [address] [place], [address] Hematocrit (Bld) [Volume fraction] 23.6 % Low 40-54 [facility] Comment on above: Performed By: #### L 500.2500, L100.0100 ####[facility] [address] [place], [address] Hemoglobin (Bld) [Mass/Vol] 7.5 g/dL Low 13.0-16.5 [facility] Comment on above: Performed By: #### L 500.2500, L100.0100 ####[facility] [address] [place], [address] IG% 0.600 Normal 0.0-0.9 [facility] Comment on above: Result Comment: IG% - Immature Granulocytes (promyelocytes, myelocytes andmetamyelocytes) > 1% indicates that a LEFT SHIFT is Present. Performed By: #### L 500.2500, L100.0100 ####[facility] [address] [place], [address] Lymphocytes/100 WBC (Bld) 5.3 % Low 19-41 [facility] Comment on above: Performed By: #### L 500.2500, L100.0100 ####[facility] [address] [place], [address] MCH (RBC) [Entitic mass] 31.3 pg Normal 27.0-32.0 [facility] Comment on above: Performed By: #### L 500.2500, L100.0100 ####[facility] [address] [place], [address] MCHC (RBC) [Mass/Vol] 31.8 g/dL Low 32-36 [facility] Comment on above: Performed By: #### L 500.2500, L100.0100 ####[facility] [address] [place], [address] MCV (RBC) [Entitic vol] 98.3 fL High 80-94 [facility] Comment on above: Performed By: #### L 500.2500, L100.0100 ####[facility] [address] [place], [address] Monocytes/100 WBC (Bld) 1.9 % Normal 0-10 [facility] Comment on above: Performed By: #### L 500.2500, L100.0100 ####[facility] [address] [place], [address] Neutrophils/100 WBC (Bld) 92.1 % High 47-70 [facility] Comment on above: Performed By: #### L 500.2500, L100.0100 ####[facility] [address] [place], [address] Nucleated RBC (Bld) [#/Vol] 0 10*3/uL Normal 0-5 [facility] Comment on above: Performed By: #### L 500.2500, L100.0100 ####[facility] [address] [place], [address] Platelet mean volume (Bld) [Entitic vol] 11.0 fL Normal 6.2-12.0 [facility] Comment on above: Performed By: #### L 500.2500, L100.0100 ####[facility] [address] [place], [address] Platelets (Bld) [#/Vol] 129 10*3/uL Low 150-450 [facility] Comment on above: Performed By: #### L 500.2500, L100.0100 ####[facility] [address] [place], [address] RBC (Bld) [#/Vol] 2.40 10*6/uL Low 4.6-6.2 [facility] Comment on above: Performed By: #### L 500.2500, L100.0100 ####[facility] [address] [place], [address] RDW SD 53.0 fl High 35.1-43.9 [facility] Comment on above: Performed By: #### L 500.2500, L100.0100 ####[facility] [address] [place], [address] WBC (Bld) [#/Vol] 8.5 10*3/uL Normal 4.4-11.0 [facility] Comment on above: Performed By: #### L 500.2500, L100.0100 ####[facility] [address] [place], [address] Discharge Instructionon 01-11 Discharge Instruction Normal [facility] Vitamin B12on 02-04-2024 Cobalamin (Vitamin B12) [Mass/Vol] 661 pg/mL Normal 211-911 [facility] Comment on above: Performed By: #### L 503.0105 ####[facility] [address] [place], [address] Bedside Glucoseon 02-03-2024 FINGERSTICK GLU 192 mg/dL High [address] [place] [address] Comment on above: Result Comment: MYKE GEMENT OF PATIENT CARE PER NURSING PROTOCOL Performed By: #### L 501.080 ####[facility] [address] [place], [address] FINGERSTICK GLU 201 mg/dL High [address] [place] [address] Comment on above: Result Comment: MYKE GEMENT OF PATIENT CARE PER NURSING PROTOCOL Performed By: #### L 501.080 ####[facility] [address] [place], [address] FINGERSTICK GLU 270 mg/dL High [address] [place] [address] Comment on above: Result Comment: MYKE GEMENT OF PATIENT CARE PER NURSING PROTOCOL Performed By: #### L 501.080 ####[facility] [address] [place], [address] FINGERSTICK GLU 215 mg/dL High [address] [place] [address] Comment on above: Result Comment: MYKE GEMENT OF PATIENT CARE PER NURSING PROTOCOL Performed By: #### L 501.080 ####[facility] [address] [place], [address] CBC W/Diff, Automatedon 01-11 Absolute Lymph 0.35 X10 3/uL Low 0.83-4.51 [facility] Comment on above: Performed By: #### L 501.9985, L501.2300, L501.5200, L100.0100, L500.4050 ####[facility] [address] [place], [address] Absolute Neut 4.4 X10 3/uL Normal 2.0-7.7 [facility] Comment on above: Performed By: #### L 501.9985, L501.2300, L501.5200, L100.0100, L500.4050 ####[facility] [address] [place], [address] Basophils/100 WBC (Bld) 0.2 % Normal 0-1 [facility] Comment on above: Performed By: #### L 501.9985, L501.2300, L501.5200, L100.0100, L500.4050 ####[facility] [address] [place], [address] Eosinophils/100 WBC (Bld) 0.4 % Normal 0-5 [facility] Comment on above: Performed By: #### L 501.9985, L501.2300, L501.5200, L100.0100, L500.4050 ####[facility] [address] [place], [address] Erythrocyte distribution width (RBC) [Ratio] 14.8 % High 11.6-14.6 [facility] Comment on above: Performed By: #### L 501.9985, L501.2300, L501.5200, L100.0100, L500.4050 ####[facility] [address] [place], [address] Hematocrit (Bld) [Volume fraction] 24.5 % Low 40-54 [facility] Comment on above: Performed By: #### L 501.9985, L501.2300, L501.5200, L100.0100, L500.4050 ####[facility] [address] [place], [address] Hemoglobin (Bld) [Mass/Vol] 7.7 g/dL Low 13.0-16.5 [facility] Comment on above: Performed By: #### L 501.9985, L501.2300, L501.5200, L100.0100, L500.4050 ####[facility] [address] [place], [address] IG% 0.600 Normal 0.0-0.9 [facility] Comment on above: Result Comment: IG% - Immature Granulocytes (promyelocytes, myelocytes andmetamyelocytes) > 1% indicates that a LEFT SHIFT is Present. Performed By: #### L 501.9985, L501.2300, L501.5200, L100.0100, L500.4050 ####[facility] [address] [place], [address] Lymphocytes/100 WBC (Bld) 7.2 % Low 19-41 [facility] Comment on above: Performed By: #### L 501.9985, L501.2300, L501.5200, L100.0100, L500.4050 ####[facility] [address] [place], [address] MCH (RBC) [Entitic mass] 31.8 pg Normal 27.0-32.0 [facility] Comment on above: Performed By: #### L 501.9985, L501.2300, L501.5200, L100.0100, L500.4050 ####[facility] [address] [place], [address] MCHC (RBC) [Mass/Vol] 31.4 g/dL Low 32-36 [facility] Comment on above: Performed By: #### L 501.9985, L501.2300, L501.5200, L100.0100, L500.4050 ####[facility] [address] [place], [address] MCV (RBC) [Entitic vol] 101.2 fL High 80-94 [facility] Comment on above: Performed By: #### L 501.9985, L501.2300, L501.5200, L100.0100, L500.4050 ####[facility] [address] [place], [address] Monocytes/100 WBC (Bld) 0.8 % Normal 0-10 [facility] Comment on above: Performed By: #### L 501.9985, L501.2300, L501.5200, L100.0100, L500.4050 ####[facility] [address] [place], [address] Neutrophils/100 WBC (Bld) 90.8 % High 47-70 [facility] Comment on above: Performed By: #### L 501.9985, L501.2300, L501.5200, L100.0100, L500.4050 ####[facility] [address] [place], [address] Nucleated RBC (Bld) [#/Vol] 0 10*3/uL Normal 0-5 [facility] Comment on above: Performed By: #### L 501.9985, L501.2300, L501.5200, L100.0100, L500.4050 ####[facility] [address] [place], [address] Platelet mean volume (Bld) [Entitic vol] 11.3 fL Normal 6.2-12.0 [facility] Comment on above: Performed By: #### L 501.9985, L501.2300, L501.5200, L100.0100, L500.4050 ####[facility] [address] [place], [address] Platelets (Bld) [#/Vol] 105 10*3/uL Low 150-450 [facility] Comment on above: Performed By: #### L 501.9985, L501.2300, L501.5200, L100.0100, L500.4050 ####[facility] [address] [place], [address] RBC (Bld) [#/Vol] 2.42 10*6/uL Low 4.6-6.2 [facility] Comment on above: Performed By: #### L 501.9985, L501.2300, L501.5200, L100.0100, L500.4050 ####[facility] [address] [place], [address] RDW SD 53.8 fl High 35.1-43.9 [facility] Comment on above: Performed By: #### L 501.9985, L501.2300, L501.5200, L100.0100, L500.4050 ####[facility] [address] [place], [address] WBC (Bld) [#/Vol] 4.9 10*3/uL Normal 4.4-11.0 [facility] Comment on above: Performed By: #### L 501.9985, L501.2300, L501.5200, L100.0100, L500.4050 ####[facility] [address] [place], [address] Comprehensive Metabolic [facility] 02-03-2024 Albumin [Mass/Vol] 3.1 g/dL Low 3.2-5.0 [facility] Comment on above: Performed By: #### L 501.9985, L501.2300, L501.5200, L100.0100, L500.4050 ####[facility] [address] [place], [address] Albumin/Globulin [Mass ratio] 0.9 {ratio} Normal 0.9-2.4 [facility] Comment on above: Performed By: #### L 501.9985, L501.2300, L501.5200, L100.0100, L500.4050 ####[facility] [address] [place], [address] ALK P 64 U/L Normal 45-117 [facility] Comment on above: Performed By: #### L 501.9985, L501.2300, L501.5200, L100.0100, L500.4050 ####[facility] [address] [place], [address] ALT [Catalytic activity/Vol] 20 U/L Normal 16-61 [facility] Comment on above: Performed By: #### L 501.9985, L501.2300, L501.5200, L100.0100, L500.4050 ####[facility] [address] [place], [address] AST [Catalytic activity/Vol] 10 U/L Low 15-37 [facility] Comment on above: Performed By: #### L 501.9985, L501.2300, L501.5200, L100.0100, L500.4050 ####[facility] [address] [place], [address] Bilirubin [Mass/Vol] 0.50 mg/dL Normal 0.20-1.00 [facility] Comment on above: Result Comment: For patients on eltrombopag therapy, use of Dimension Burt TBIL is not recommended. Performed By: #### L 501.9985, L501.2300, L501.5200, L100.0100, L500.4050 ####[facility] [address] [place], [address] BUN/CRE 24.9 RATIO High 10-20 [facility] Comment on above: Performed By: #### L 501.9985, L501.2300, L501.5200, L100.0100, L500.4050 ####[facility] [address] [place], [address] CA,Total 8.9 mg/dL Normal 8.5-10.1 [facility] Comment on above: Performed By: #### L 501.9985, L501.2300, L501.5200, L100.0100, L500.4050 ####[facility] [address] [place], [address] Chloride [Moles/Vol] 110 mmol/L High 98-107 [facility] Comment on above: Performed By: #### L 501.9985, L501.2300, L501.5200, L100.0100, L500.4050 ####[facility] [address] [place], [address] CO2 [Moles/Vol] 24.0 mmol/L Normal 21.0-32.0 [facility] Comment on above: Performed By: #### L 501.9985, L501.2300, L501.5200, L100.0100, L500.4050 ####[facility] [address] [place], [address] Creatinine [Mass/Vol] 2.25 mg/dL High 0.70-1.30 [facility] Comment on above: Result Comment: The validity of the calculated GFR GFRAA in patients over70 years has not been determined. Clinical correlation isessential. Performed By: #### L 501.9985, L501.2300, L501.5200, L100.0100, L500.4050 ####[facility] [address] [place], [address] ECRCL 24.38 ml/min Normal [facility] Comment on above: Performed By: #### L 501.9985, L501.2300, L501.5200, L100.0100, L500.4050 ####[facility] [address] [place], [address] EST GFR - AA 36 mL/min Low >60 [facility] Comment on above: Result Comment: Afri can Singaporean GFR Calc Performed By: #### L 501.9985, L501.2300, L501.5200, L100.0100, L500.4050 ####[facility] [address] [place], [address] GAP 7 Normal 5-15 [facility] Comment on above: Performed By: #### L 501.9985, L501.2300, L501.5200, L100.0100, L500.4050 ####[facility] [address] [place], [address] GFR/1.73 sq M.predicted among non-blacks MDRD (S/P/Bld) [Vol rate/Area] 30 mL/min/{1.73_m2} Low >60 [facility] Comment on above: Result Comment: Non- GFR Calc Performed By: #### L 501.9985, L501.2300, L501.5200, L100.0100, L500.4050 ####[facility] [address] [place], [address] Globulin (S) [Mass/Vol] 3.5 g/dL Normal 2.2-4.2 [facility] Comment on above: Performed By: #### L 501.9985, L501.2300, L501.5200, L100.0100, L500.4050 ####[facility] [address] [place], [address] Glucose [Mass/Vol] 229 mg/dL High 74-106 [facility] Comment on above: Result Comment: Gluc ose result greater than or equal to 200 mg/dLsuggests DIABETES MELLITUS per A.D.A. criteria. Performed By: #### L 501.9985, L501.2300, L501.5200, L100.0100, L500.4050 ####[facility] [address] [place], [address] Potassium [Moles/Vol] 5.4 mmol/L High 3.5-5.1 [facility] Comment on above: Performed By: #### L 501.9985, L501.2300, L501.5200, L100.0100, L500.4050 ####[facility] [address] [place], [address] Sodium [Moles/Vol] 142 mmol/L Normal 136-145 [facility] Comment on above: Performed By: #### L 501.9985, L501.2300, L501.5200, L100.0100, L500.4050 ####[facility] [address] [place], [address] T PROT 6.6 g/dL Normal 6.4-8.2 [facility] Comment on above: Performed By: #### L 501.9985, L501.2300, L501.5200, L100.0100, L500.4050 ####[facility] [address] [place], [address] Urea nitrogen [Mass/Vol] 56 mg/dL High 7-18 [facility] Comment on above: Performed By: #### L 501.9985, L501.2300, L501.5200, L100.0100, L500.4050 ####[facility] [address] [place], [address] Ferritinon 02-03-2024 Ferritin [Mass/Vol] 25 ng/mL Low 26-388 [facility] Comment on above: Order Comment: Has P atbrian had X-rays with Contrast this admission? NN Performed By: #### L 506.0250, L503.6550, L501.9520, L501.4020, L503.6030 ####[facility] [address] [place], [address] Folates, (Folic Acid)on 01-11 FOLATES 12.80 ng/mL Normal 3.1-55.4 [facility] Comment on above: Order Comment: Has P atbrian had X-rays with Contrast this admission? NN Performed By: #### L 506.0250, L503.6550, L501.9520, L501.4020, L503.6030 ####[facility] [address] [place], [address] Hemoglobin A1con 02-03-2024 HbA1c (Bld) [Mass fraction] 5.7 % High 3.8-5.6 [facility] Comment on above: Result Comment: Norm al < 5.7 % Prediabetic 5.7 - 6.4 % Diabetic >or= 6.5 % Please note range changes. Performed By: #### L 501.9985, L501.2300, L501.5200, L100.0100, L500.4050 ####[facility] [address] [place], [address] Iron+Iron Binding Capacityon 02-03-2024 Iron [Mass/Vol] 61 ug/dL Low 65-175 [facility] Comment on above: Order Comment: Has Fransisco okeefe had X-rays with Contrast this admission? NN Performed By: #### L 506.0250, L503.6550, L501.9520, L501.4020, L503.6030 ####[facility] [address] [place], [address] IRON SATURATION 21.2 Normal 15.0-55.0 [facility] Comment on above: Order Comment: Has Fransisco okeefe had X-rays with Contrast this admission? NN Performed By: #### L 506.0250, L503.6550, L501.9520, L501.4020, L503.6030 ####[facility] [address] [place], [address] TIBC 288 ug/dL Normal 250-450 [facility] Comment on above: Order Comment: Has Fransisco okeefe had X-rays with Contrast this admission? NN Performed By: #### L 506.0250, L503.6550, L501.9520, L501.4020, L503.6030 ####[facility] [address] [place], [address] L501.4020on 02-03-2024 TROPONIN-I HS 37 pg/mL Normal 3.0-78.0 [facility] Comment on above: Order Comment: Has Fransisco okeefe had X-rays with Contrast this admission? NN Result Comment: Sara saleh Note: New Test Units and Gender Specific Reference Ranges. For more information see Policy Stat Procedure Burt High Sensitivity Troponin (TNIH) and attachments. Performed By: #### L 506.0250, L503.6550, L501.9520, L501.4020, L503.6030 ####[facility] [address] [place], [address] M100.678on 02-03-2024 M100.678 Pending SARS-CoV-2 (COVID 19) Negative INFLUENZA A Negative INFLUENZA B Negative RSV PCR Negative Normal [facility] Comment on above: Performed By: #### M 100.678 ####[facility] [address] [place], [address] Magnesiumon 02-03-2024 Magnesium [Mass/Vol] 2.0 mg/dL Normal 1.6-2.6 [facility] Comment on above: Performed By: #### L 501.9985, L501.2300, L501.5200, L100.0100, L500.4050 ####[facility] [address] [place], [address] Phosphoruson 02-03-2024 Phosphate [Mass/Vol] 2.6 mg/dL Normal 2.5-4.9 [facility] Comment on above: Performed By: #### L 501.9985, L501.2300, L501.5200, L100.0100, L500.4050 ####[facility] [address] [place], [address] Thyroid Stim Hormone (TSH)on 02-03-2024 TSH 4.220 uIU/mL High 0.358-3.740 [facility] Comment on above: Order Comment: Has P atient had X-rays with Contrast this admission? NN Performed By: #### L 506.0250, L503.6550, L501.9520, L501.4020, L503.6030 ####[facility] [address] [place], [address] Type AND Screenon 02-03-2024 ABO and Rh group Nom (Bld) Blood group A Rh(D) negative Normal [facility] Comment on above: Order Comment: A Performed By: #### B TS ####[facility] [address] [place], [address] Ab SCREEN GEL PENDING Normal [facility] Comment on above: Order Comment: A Performed By: #### B TS ####[facility] [address] [place], [address] 12 Lead EKGon 02-02-2024 12 Lead EKG Normal [facility] BNP,B-Type NATRIURETIC PEPTI Nico 02-02-2024 Natriuretic peptide B (Bld) [Mass/Vol] 188.6 pg/mL High 0-100 [facility] Comment on above: Performed By: #### L 100.0100, L501.5425, L500.2500, L503.6620 ####[facility] [address] [place], [address] Basic Metabolic Profile (BMP )on 02-02-2024 BUN/CRE 26.4 RATIO High 10-20 [facility] Comment on above: Order Comment: 1Y Performed By: #### L 100.0100, L501.5425, L500.2500, L503.6620 ####[facility] [address] [place], [address] CA,Total 8.9 mg/dL Normal 8.5-10.1 [facility] Comment on above: Order Comment: 1Y Performed By: #### L 100.0100, L501.5425, L500.2500, L503.6620 ####[facility] [address] [place], [address] Chloride [Moles/Vol] 112 mmol/L High 98-107 [facility] Comment on above: Order Comment: 1Y Performed By: #### L 100.0100, L501.5425, L500.2500, L503.6620 ####[facility] [address] [place], [address] CO2 [Moles/Vol] 27.0 mmol/L Normal 21.0-32.0 [facility] Comment on above: Order Comment: 1Y Performed By: #### L 100.0100, L501.5425, L500.2500, L503.6620 ####[facility] [address] [place], [address] Creatinine [Mass/Vol] 2.35 mg/dL High 0.70-1.30 [facility] Comment on above: Order Comment: 1Y Result Comment: The validity of the calculated GFR GFRAA in patients over70 years has not been determined. Clinical correlation isessential. Performed By: #### L 100.0100, L501.5425, L500.2500, L503.6620 ####[facility] [address] [place], [address] ECRCL 23.21 ml/min Normal [facility] Comment on above: Order Comment: 1Y Performed By: #### L 100.0100, L501.5425, L500.2500, L503.6620 ####[facility] [address] [place], [address] EST GFR - AA 34 mL/min Low >60 [facility] Comment on above: Order Comment: 1Y Result Comment: Afri can Singaporean GFR Calc Performed By: #### L 100.0100, L501.5425, L500.2500, L503.6620 ####[facility] [address] [place], [address] GAP 6 Normal 5-15 [facility] Comment on above: Order Comment: 1Y Performed By: #### L 100.0100, L501.5425, L500.2500, L503.6620 ####[facility] [address] [place], [address] GFR/1.73 sq M.predicted among non-blacks MDRD (S/P/Bld) [Vol rate/Area] 28 mL/min/{1.73_m2} Low >60 [facility] Comment on above: Order Comment: 1Y Result Comment: Non- GFR Calc Performed By: #### L 100.0100, L501.5425, L500.2500, L503.6620 ####[facility] [address] [place], [address] Glucose [Mass/Vol] 248 mg/dL High 74-106 [facility] Comment on above: Order Comment: 1Y Result Comment: Gluc ose result greater than or equal to 200 mg/dLsuggests DIABETES MELLITUS per A.D.A. criteria. Performed By: #### L 100.0100, L501.5425, L500.2500, L503.6620 ####[facility] [address] [place], [address] Potassium [Moles/Vol] 4.7 mmol/L Normal 3.5-5.1 [facility] Comment on above: Order Comment: 1Y Performed By: #### L 100.0100, L501.5425, L500.2500, L503.6620 ####[facility] [address] [place], [address] Sodium [Moles/Vol] 145 mmol/L Normal 136-145 [facility] Comment on above: Order Comment: 1Y Performed By: #### L 100.0100, L501.5425, L500.2500, L503.6620 ####[facility] [address] [place], [address] Urea nitrogen [Mass/Vol] 62 mg/dL High 7-18 [facility] Comment on above: Order Comment: 1Y Performed By: #### L 100.0100, L501.5425, L500.2500, L503.6620 ####[facility] [address] [place], [address] CBC W/Diff, Automatedon 11-2 -2023 Absolute Lymph 0.88 X10 3/uL Normal 0.83-4.51 [facility] Comment on above: Performed By: #### L 100.0100, L501.5425, L500.2500, L503.6620 ####[facility] [address] [place], [address] Absolute Neut 4.1 X10 3/uL Normal 2.0-7.7 [facility] Comment on above: Performed By: #### L 100.0100, L501.5425, L500.2500, L503.6620 ####[facility] [address] [place], [address] Basophils/100 WBC (Bld) 0.2 % Normal 0-1 [facility] Comment on above: Performed By: #### L 100.0100, L501.5425, L500.2500, L503.6620 ####[facility] [address] [place], [address] Eosinophils/100 WBC (Bld) 4.0 % Normal 0-5 [facility] Comment on above: Performed By: #### L 100.0100, L501.5425, L500.2500, L503.6620 ####[facility] [address] [place], [address] Erythrocyte distribution width (RBC) [Ratio] 15.0 % High 11.6-14.6 [facility] Comment on above: Performed By: #### L 100.0100, L501.5425, L500.2500, L503.6620 ####[facility] [address] [place], [address] Hematocrit (Bld) [Volume fraction] 24.2 % Low 40-54 [facility] Comment on above: Performed By: #### L 100.0100, L501.5425, L500.2500, L503.6620 ####[facility] [address] [place], [address] Hemoglobin (Bld) [Mass/Vol] 7.5 g/dL Low 13.0-16.5 [facility] Comment on above: Performed By: #### L 100.0100, L501.5425, L500.2500, L503.6620 ####[facility] [address] [place], [address] IG% 0.400 Normal 0.0-0.9 [facility] Comment on above: Result Comment: IG% - Immature Granulocytes (promyelocytes, myelocytes andmetamyelocytes) > 1% indicates that a LEFT SHIFT is Present. Performed By: #### L 100.0100, L501.5425, L500.2500, L503.6620 ####[facility] [address] [place], [address] Lymphocytes/100 WBC (Bld) 15.8 % Low 19-41 [facility] Comment on above: Performed By: #### L 100.0100, L501.5425, L500.2500, L503.6620 ####[facility] [address] [place], [address] MCH (RBC) [Entitic mass] 31.3 pg Normal 27.0-32.0 [facility] Comment on above: Performed By: #### L 100.0100, L501.5425, L500.2500, L503.6620 ####[facility] [address] [place], [address] MCHC (RBC) [Mass/Vol] 31.0 g/dL Low 32-36 [facility] Comment on above: Performed By: #### L 100.0100, L501.5425, L500.2500, L503.6620 ####[facility] [address] [place], [address] MCV (RBC) [Entitic vol] 100.8 fL High 80-94 [facility] Comment on above: Performed By: #### L 100.0100, L501.5425, L500.2500, L503.6620 ####[facility] [address] [place], [address] Monocytes/100 WBC (Bld) 6.8 % Normal 0-10 [facility] Comment on above: Performed By: #### L 100.0100, L501.5425, L500.2500, L503.6620 ####[facility] [address] [place], [address] Neutrophils/100 WBC (Bld) 72.8 % High 47-70 [facility] Comment on above: Performed By: #### L 100.0100, L501.5425, L500.2500, L503.6620 ####[facility] [address] [place], [address] Nucleated RBC (Bld) [#/Vol] 0 10*3/uL Normal 0-5 [facility] Comment on above: Performed By: #### L 100.0100, L501.5425, L500.2500, L503.6620 ####[facility] [address] [place], [address] Platelet mean volume (Bld) [Entitic vol] 10.7 fL Normal 6.2-12.0 [facility] Comment on above: Performed By: #### L 100.0100, L501.5425, L500.2500, L503.6620 ####[facility] [address] [place], [address] Platelets (Bld) [#/Vol] 115 10*3/uL Low 150-450 [facility] Comment on above: Performed By: #### L 100.0100, L501.5425, L500.2500, L503.6620 ####[facility] [address] [place], [address] RBC (Bld) [#/Vol] 2.40 10*6/uL Low 4.6-6.2 [facility] Comment on above: Performed By: #### L 100.0100, L501.5425, L500.2500, L503.6620 ####[facility] [address] [place], [address] RDW SD 54.6 fl High 35.1-43.9 [facility] Comment on above: Performed By: #### L 100.0100, L501.5425, L500.2500, L503.6620 ####[facility] [address] [place], [address] WBC (Bld) [#/Vol] 5.6 10*3/uL Normal 4.4-11.0 [facility] Comment on above: Performed By: #### L 100.0100, L501.5425, L500.2500, L503.6620 ####[facility] [address] [place], [address] Chest 1 View (Portable)on Chest 1 View (Portable) Normal [facility] Emergency Department Summary on 02-02-2024 Emergency Department Summary Normal [facility] H AND P Exam - Hospital[facility] 02-02-2024 H&P Exam - Hospitalist Normal [facility] L501.5425on 02-02-2024 TROPONIN-I HS 28 pg/mL Normal 3.0-78.0 [facility] Comment on above: Order Comment: 1Y Result Comment: Sara saleh Note: New Test Units and Gender Specific Reference Ranges. For more information see Policy Stat Procedure Burt High Sensitivity Troponin (TNIH) and attachments. Performed By: #### L 100.0100, L501.5425, L500.2500, L503.6620 ####[facility] [address] [place], [address] Stool Occult Blood iFOBon STOB Negative Normal [facility] Comment on above: Performed By: #### M 100.7900 ####[facility] [address] [place], [address] CBC-Complete Blood Cnt No Di ffon 01-22-2024 Erythrocyte distribution width (RBC) [Ratio] 13.5 % Normal 11.6-14.6 [facility] Comment on above: Order Comment: CC CM P TO DR. YURIDIA HERNANDEZ Performed By: #### L 500.4050, L509.1000, L100.0500, L506.1000 ####[facility] [address] [place], [address] Hematocrit (Bld) [Volume fraction] 29.4 % Low 40-54 [facility] Comment on above: Order Comment: CC CM P TO DR. YURIDIA HERNANDEZ Performed By: #### L 500.4050, L509.1000, L100.0500, L506.1000 ####[facility] [address] [place], [address] Hemoglobin (Bld) [Mass/Vol] 9.4 g/dL Low 13.0-16.5 [facility] Comment on above: Order Comment: CC CM P TO DR. YURIDIA HERNANDEZ Performed By: #### L 500.4050, L509.1000, L100.0500, L506.1000 ####[facility] [address] [place], [address] MCH (RBC) [Entitic mass] 30.6 pg Normal 27.0-32.0 [facility] Comment on above: Order Comment: CC CM P TO DR. YURIDIA HERNANDEZ Performed By: #### L 500.4050, L509.1000, L100.0500, L506.1000 ####[facility] [address] [place], [address] MCHC (RBC) [Mass/Vol] 32.0 g/dL Normal 32-36 [facility] Comment on above: Order Comment: CC CM P TO DR. YURIDIA HERNANDEZ Performed By: #### L 500.4050, L509.1000, L100.0500, L506.1000 ####[facility] [address] [place], [address] MCV (RBC) [Entitic vol] 95.8 fL High 80-94 [facility] Comment on above: Order Comment: CC CM P TO DR. YURIDIA HERNANDEZ Performed By: #### L 500.4050, L509.1000, L100.0500, L506.1000 ####[facility] [address] [place], [address] Platelet mean volume (Bld) [Entitic vol] 11.4 fL Normal 6.2-12.0 [facility] Comment on above: Order Comment: CC CM P TO DR. YURIDIA HERNANDEZ Performed By: #### L 500.4050, L509.1000, L100.0500, L506.1000 ####[facility] [address] [place], [address] Platelets (Bld) [#/Vol] 92 10*3/uL Low 150-450 [facility] Comment on above: Order Comment: CC CM P TO DR. YURIDIA HERNANDEZ Performed By: #### L 500.4050, L509.1000, L100.0500, L506.1000 ####[facility] [address] [place], [address] RBC (Bld) [#/Vol] 3.07 10*6/uL Low 4.6-6.2 [facility] Comment on above: Order Comment: CC CM P TO DR. YURIDIA HERNANDEZ Performed By: #### L 500.4050, L509.1000, L100.0500, L506.1000 ####[facility] [address] [place], [address] RDW SD 47.8 fl High 35.1-43.9 [facility] Comment on above: Order Comment: CC CM P TO DR. YURIDIA HERNANDEZ Performed By: #### L 500.4050, L509.1000, L100.0500, L506.1000 ####[facility] [address] [place], [address] WBC (Bld) [#/Vol] 8.8 10*3/uL Normal 4.4-11.0 [facility] Comment on above: Order Comment: CC CM P TO DR. YURIDIA HERNANDEZ Performed By: #### L 500.4050, L509.1000, L100.0500, L506.1000 ####[facility] [address] [place], [address] Comprehensive Metabolic Prof [facility] 01-22-2024 Albumin [Mass/Vol] 3.5 g/dL Normal 3.2-5.0 [facility] Comment on above: Order Comment: CC CM P TO DR. YURIDIA HERNANDEZ Performed By: #### L 500.4050, L509.1000, L100.0500, L506.1000 ####[facility] [address] [place], [address] Albumin/Globulin [Mass ratio] 1.0 {ratio} Normal 0.9-2.4 [facility] Comment on above: Order Comment: CC CM P TO DR. YURIDIA HERNANDEZ Performed By: #### L 500.4050, L509.1000, L100.0500, L506.1000 ####[facility] [address] [place], [address] ALK P 67 U/L Normal 45-117 [facility] Comment on above: Order Comment: CC CM P TO DR. YURIDIA HERNANDEZ Performed By: #### L 500.4050, L509.1000, L100.0500, L506.1000 ####[facility] [address] [place], [address] ALT [Catalytic activity/Vol] 22 U/L Normal 16-61 [facility] Comment on above: Order Comment: CC CM P TO DR. YURIDIA HERNANDEZ Performed By: #### L 500.4050, L509.1000, L100.0500, L506.1000 ####[facility] [address] [place], [address] AST [Catalytic activity/Vol] 12 U/L Low 15-37 [facility] Comment on above: Order Comment: CC CM P TO DR. YURIDIA HERNANDEZ Performed By: #### L 500.4050, L509.1000, L100.0500, L506.1000 ####[facility] [address] [place], [address] Bilirubin [Mass/Vol] 0.60 mg/dL Normal 0.20-1.00 [facility] Comment on above: Order Comment: CC CM P TO DR. YURIDIA HERNANDEZ Result Comment: For patients on eltrombopag therapy, use of Dimension Burt TBIL is not recommended. Performed By: #### L 500.4050, L509.1000, L100.0500, L506.1000 ####[facility] [address] [place], [address] BUN/CRE 32.0 RATIO High 10-20 [facility] Comment on above: Order Comment: CC CM P TO DR. YURIDIA HERNANDEZ Performed By: #### L 500.4050, L509.1000, L100.0500, L506.1000 ####[facility] [address] [place], [address] CA,Total 9.4 mg/dL Normal 8.5-10.1 [facility] Comment on above: Order Comment: CC CM P TO DR. YURIDIA HERNANDEZ Performed By: #### L 500.4050, L509.1000, L100.0500, L506.1000 ####[facility] [address] [place], [address] Chloride [Moles/Vol] 106 mmol/L Normal 98-107 [facility] Comment on above: Order Comment: CC CM P TO DR. YURIDIA HERNANDEZ Performed By: #### L 500.4050, L509.1000, L100.0500, L506.1000 ####[facility] [address] [place], [address] CO2 [Moles/Vol] 28.0 mmol/L Normal 21.0-32.0 [facility] Comment on above: Order Comment: CC CM P TO DR. YURIDIA HERNANDEZ Performed By: #### L 500.4050, L509.1000, L100.0500, L506.1000 ####[facility] [address] [place], [address] Creatinine [Mass/Vol] 2.31 mg/dL High 0.70-1.30 [facility] Comment on above: Order Comment: CC CM P TO DR. YURIDIA HERNANDEZ Result Comment: The validity of the calculated GFR GFRAA in patients over70 years has not been determined. Clinical correlation isessential. Performed By: #### L 500.4050, L509.1000, L100.0500, L506.1000 ####[facility] [address] [place], [address] EST GFR - AA 35 mL/min Low >60 [facility] Comment on above: Order Comment: CC CM P TO DR. YURIDIA HERNANDEZ Result Comment: Afri can Singaporean GFR Calc Performed By: #### L 500.4050, L509.1000, L100.0500, L506.1000 ####[facility] [address] [place], [address] GAP 8 Normal 5-15 [facility] Comment on above: Order Comment: CC CM P TO DR. YURIDIA HERNANDEZ Performed By: #### L 500.4050, L509.1000, L100.0500, L506.1000 ####[facility] [address] [place], [address] GFR/1.73 sq M.predicted among non-blacks MDRD (S/P/Bld) [Vol rate/Area] 29 mL/min/{1.73_m2} Low >60 [facility] Comment on above: Order Comment: CC CM P TO DR. YURIDIA HERNANDEZ Result Comment: Non- GFR Calc Performed By: #### L 500.4050, L509.1000, L100.0500, L506.1000 ####[facility] [address] [place], [address] Globulin (S) [Mass/Vol] 3.5 g/dL Normal 2.2-4.2 [facility] Comment on above: Order Comment: CC CM P TO DR. YURIDIA HERNANDEZ Performed By: #### L 500.4050, L509.1000, L100.0500, L506.1000 ####[facility] [address] [place], [address] Glucose [Mass/Vol] 191 mg/dL High 74-106 [facility] Comment on above: Order Comment: CC CM P TO DR. YURIDIA HERNANDEZ Result Comment: Fast ing Glucose result greater than or equal to 126 mg/dLsuggests DIABETES MELLITUS per A.D.A. criteria. Performed By: #### L 500.4050, L509.1000, L100.0500, L506.1000 ####[facility] [address] [place], [address] Potassium [Moles/Vol] 4.0 mmol/L Normal 3.5-5.1 [facility] Comment on above: Order Comment: CC CM P TO DR. YURIDIA HERNANDEZ Performed By: #### L 500.4050, L509.1000, L100.0500, L506.1000 ####[facility] [address] [place], [address] Sodium [Moles/Vol] 142 mmol/L Normal 136-145 [facility] Comment on above: Order Comment: CC CM P TO DR. YURIDIA HERNANDEZ Performed By: #### L 500.4050, L509.1000, L100.0500, L506.1000 ####[facility] [address] [place], [address] T PROT 7.0 g/dL Normal 6.4-8.2 [facility] Comment on above: Order Comment: CC CM P TO DR. YURIDIA HERNANDEZ Performed By: #### L 500.4050, L509.1000, L100.0500, L506.1000 ####[facility] [address] [place], [address] Urea nitrogen [Mass/Vol] 74 mg/dL High 7-18 [facility] Comment on above: Order Comment: CC CM P TO DR. YURIDIA HERNANDEZ Performed By: #### L 500.4050, L509.1000, L100.0500, L506.1000 ####[facility] [address], [address] Hemoglobin A1con 01-22-2024 HbA1c (Bld) [Mass fraction] 6.1 % High 3.8-5.6 [facility] Comment on above: Order Comment: CC AMY BS TO DR. Fidencio WASHBURN Result Comment: Norm al < 5.7 % Prediabetic 5.7 - 6.4 % Diabetic >or= 6.5 % Please note range changes. Performed By: #### L 501.9985, L500.4100 ####[facility] [address] [place], [address] Lipid Profileon 01-22-2024 Cholesterol [Mass/Vol] 180 mg/dL Normal 200 [facility] Comment on above: Order Comment: CC LA BS TO DR. Fidencio WASHBURN Result Comment: <200 mg/dL Desirable 200-240 mg/dL Borderline >240 mg/dL High Risk Performed By: #### L 501.9985, L500.4100 ####[facility] [address] [place], [address] Cholesterol in HDL [Mass/Vol] 42 mg/dL Normal [facility] Comment on above: Order Comment: CC LA BS TO DR. Fidencio WASHBURN Result Comment: The drugs N-Acetylcysteine and Metamizole may falselydepress this assay. Reference Range HDL <40 mg/dL Low HDL Cholesterol HDL >or= 60 mg/dL High HDL Cholesterol Performed By: #### L 501.9985, L500.4100 ####[facility] [address] [place], [address] Cholesterol in LDL [Mass/Vol] 95 mg/dL Normal 0-130 [facility] Comment on above: Order Comment: CC LA BS TO DR. Fidencio WASHBURN Performed By: #### L 501.9985, L500.4100 ####[facility] [address] [place], [address] Cholesterol in VLDL [Mass/Vol] 43 mg/dL High 5-40 [facility] Comment on above: Order Comment: CC LA BS TO DR. Fidencio WASHBURN Performed By: #### L 501.9985, L500.4100 ####[facility] [address] [place], [address] Triglyceride [Mass/Vol] 216 mg/dL High [facility] Comment on above: Order Comment: CC LA BS TO DR. Fidencio WASHBURN Result Comment: The drugs N-Acetylcysteine and Metamizole may falselydepress this assay.Serum Triglycerides Reference Interval Normal <150 mg/dL Borderline high 150 - 199 mg/dL High 200 - 499 mg/dL Very High > or = 500 mg/dL Performed By: #### L 501.9985, L500.4100 ####[facility] [address] [place], [address] PTHINon 01-22-2024 PTH 186.8 pg/mL High 18.4-80.1 [facility] Comment on above: Order Comment: CC CM P TO DR. YURIDIA HERNANDEZ Performed By: #### L 500.4050, L509.1000, L100.0500, L506.1000 ####[facility] [address] [place], [address] Vitamin D,25 Hydroxyon 01-21 Vitamin D 25-OH 34.1 ng/mL Normal [facility] Comment on above: Order Comment: CC CM P TO DR. YURIDIA HERNANDEZ Result Comment: Celia min D 25(OH) Status Range Deficiency <20 ng/mL (50nmol/L) Insufficiency 20 - 30 ng/mL (50 - 75 nmol/L) Sufficiency 30 - 100 ng/mL (75 - 250 nmol/L) Toxicity >100 ng/mL (>250 nmol/L) Performed By: #### L 500.4050, L509.1000, L100.0500, L506.1000 ####[facility] [address] [place], [address] 12 Lead EKGon 01-10-2024 12 Lead EKG Normal [facility] Basic Metabolic Profile (BMP )on 01-10-2024 BUN/CRE 36.3 RATIO High 10-20 [facility] Comment on above: Performed By: #### L 100.0100, L500.2500 ####[facility] [address] [place], [address] CA,Total 8.6 mg/dL Normal 8.5-10.1 [facility] Comment on above: Performed By: #### L 100.0100, L500.2500 ####[facility] [address] [place], [address] Chloride [Moles/Vol] 110 mmol/L High 98-107 [facility] Comment on above: Performed By: #### L 100.0100, L500.2500 ####[facility] [address] [place], [address] CO2 [Moles/Vol] 28.0 mmol/L Normal 21.0-32.0 [facility] Comment on above: Performed By: #### L 100.0100, L500.2500 ####[facility] [address] [place], [address] Creatinine [Mass/Vol] 2.48 mg/dL High 0.70-1.30 [facility] Comment on above: Result Comment: The validity of the calculated GFR GFRAA in patients over70 years has not been determined. Clinical correlation isessential. Performed By: #### L 100.0100, L500.2500 ####[facility] [address] [place], [address] ECRCL 21.44 ml/min Normal [facility] Comment on above: Performed By: #### L 100.0100, L500.2500 ####[facility] [address] [place], [address] EST GFR - AA 32 mL/min Low >60 [facility] Comment on above: Result Comment: Afri can Singaporean GFR Calc Performed By: #### L 100.0100, L500.2500 ####[facility] [address] [place], [address] GAP 7 Normal 5-15 [facility] Comment on above: Performed By: #### L 100.0100, L500.2500 ####[facility] [address] [place], [address] GFR/1.73 sq M.predicted among non-blacks MDRD (S/P/Bld) [Vol rate/Area] 27 mL/min/{1.73_m2} Low >60 [facility] Comment on above: Result Comment: Non- GFR Calc Performed By: #### L 100.0100, L500.2500 ####[facility] [address] [place], [address] Glucose [Mass/Vol] 175 mg/dL High 74-106 [facility] Comment on above: Result Comment: Fast ing Glucose result greater than or equal to 126 mg/dLsuggests DIABETES MELLITUS per A.D.A. criteria. Performed By: #### L 100.0100, L500.2500 ####[facility] [address] [place], [address] Potassium [Moles/Vol] 4.5 mmol/L Normal 3.5-5.1 [facility] Comment on above: Performed By: #### L 100.0100, L500.2500 ####[facility] [address] [place], [address] Sodium [Moles/Vol] 145 mmol/L Normal 136-145 [facility] Comment on above: Performed By: #### L 100.0100, L500.2500 ####[facility] [address] [place], [address] Urea nitrogen [Mass/Vol] 90 mg/dL High 7-18 [facility] Comment on above: Performed By: #### L 100.0100, L500.2500 ####[facility] [address] [place], [address] CBC W/Diff, Automatedon 12-12 PLT EST MOD DEC Normal ADEQ [facility] Comment on above: Result Comment: AMENDED REPORT 01/10/241950 PLT EST previously reported as: MOD DEC Performed By: #### L 100.0100, L500.2500 ####[facility] [address] [place], [address] Chest 1 View (Portable)on Chest 1 View (Portable) Normal [facility] Emergency Department Summary on 01-10-2024 Emergency Department Summary Normal [facility] M100.678on 01-10-2024 M100.678 Pending SARS-CoV-2 (COVID 19) Negative INFLUENZA A Negative INFLUENZA B Negative RSV PCR Negative Normal [facility] Comment on above: Performed By: #### M 100.678 ####[facility] [address] [place], [address] CBC W/Diff, Automatedon 12-12 Absolute Lymph 1.19 X10 3/uL Normal 0.83-4.51 [facility] Comment on above: Performed By: #### L 100.0100, L503.6030 ####[facility] [address] [place], [address] Absolute Neut 3.4 X10 3/uL Normal 2.0-7.7 [facility] Comment on above: Performed By: #### L 100.0100, L503.6030 ####[facility] [address] [place], [address] Basophils/100 WBC (Bld) 0.4 % Normal 0-1 [facility] Comment on above: Performed By: #### L 100.0100, L503.6030 ####[facility] [address] [place], [address] Eosinophils/100 WBC (Bld) 8.1 % High 0-5 [facility] Comment on above: Performed By: #### L 100.0100, L503.6030 ####[facility] [address] [place], [address] Erythrocyte distribution width (RBC) [Ratio] 14.0 % Normal 11.6-14.6 [facility] Comment on above: Performed By: #### L 100.0100, L503.6030 ####[facility] [address] [place], [address] Hematocrit (Bld) [Volume fraction] 29.9 % Low 40-54 [facility] Comment on above: Performed By: #### L 100.0100, L503.6030 ####[facility] [address] [place], [address] Hemoglobin (Bld) [Mass/Vol] 9.4 g/dL Low 13.0-16.5 [facility] Comment on above: Performed By: #### L 100.0100, L503.6030 ####[facility] [address] [place], [address] IG% 0.400 Normal 0.0-0.9 [facility] Comment on above: Result Comment: IG% - Immature Granulocytes (promyelocytes, myelocytes andmetamyelocytes) > 1% indicates that a LEFT SHIFT is Present. Performed By: #### L 100.0100, L503.6030 ####[facility] [address] [place], [address] Lymphocytes/100 WBC (Bld) 21.4 % Normal 19-41 [facility] Comment on above: Performed By: #### L 100.0100, L503.6030 ####[facility] [address] [place], [address] MCH (RBC) [Entitic mass] 30.3 pg Normal 27.0-32.0 [facility] Comment on above: Performed By: #### L 100.0100, L503.6030 ####[facility] [address] [place], [address] MCHC (RBC) [Mass/Vol] 31.4 g/dL Low 32-36 [facility] Comment on above: Performed By: #### L 100.0100, L503.6030 ####[facility] [address] [place], [address] MCV (RBC) [Entitic vol] 96.5 fL High 80-94 [facility] Comment on above: Performed By: #### L 100.0100, L503.6030 ####[facility] [address] [place], [address] Monocytes/100 WBC (Bld) 8.4 % Normal 0-10 [facility] Comment on above: Performed By: #### L 100.0100, L503.6030 ####[facility] [address] [place], [address] Neutrophils/100 WBC (Bld) 61.3 % Normal 47-70 [facility] Comment on above: Performed By: #### L 100.0100, L503.6030 ####[facility] [address] [place], [address] Nucleated RBC (Bld) [#/Vol] 0 10*3/uL Normal 0-5 [facility] Comment on above: Performed By: #### L 100.0100, L503.6030 ####[facility] [address] [place], [address] Platelet mean volume (Bld) [Entitic vol] 10.6 fL Normal 6.2-12.0 [facility] Comment on above: Performed By: #### L 100.0100, L503.6030 ####[facility] [address] [place], [address] Platelets (Bld) [#/Vol] 102 10*3/uL Low 150-450 [facility] Comment on above: Performed By: #### L 100.0100, L503.6030 ####[facility] [address] [place], [address] RBC (Bld) [#/Vol] 3.10 10*6/uL Low 4.6-6.2 [facility] Comment on above: Performed By: #### L 100.0100, L503.6030 ####[facility] [address] [place], [address] RDW SD 48.8 fl High 35.1-43.9 [facility] Comment on above: Performed By: #### L 100.0100, L503.6030 ####[facility] [address] [place], [address] WBC (Bld) [#/Vol] 5.6 10*3/uL Normal 4.4-11.0 [facility] Comment on above: Performed By: #### L 100.0100, L503.6030 ####[facility] [address] [place], [address] Comprehensive Metabolic Prof ilon 01-09-2024 Albumin [Mass/Vol] 3.4 g/dL Normal 3.2-5.0 [facility] Comment on above: Performed By: #### L 506.1000, L500.4050, L509.1000 ####[facility] [address] [place], [address] Albumin/Globulin [Mass ratio] 0.9 {ratio} Normal 0.9-2.4 [facility] Comment on above: Performed By: #### L 506.1000, L500.4050, L509.1000 ####[facility] [address] [place], [address] ALK P 68 U/L Normal 45-117 [facility] Comment on above: Performed By: #### L 506.1000, L500.4050, L509.1000 ####[facility] [address] [place], [address] ALT [Catalytic activity/Vol] 25 U/L Normal 16-61 [facility] Comment on above: Performed By: #### L 506.1000, L500.4050, L509.1000 ####[facility] [address] [place], [address] AST [Catalytic activity/Vol] 16 U/L Normal 15-37 [facility] Comment on above: Performed By: #### L 506.1000, L500.4050, L509.1000 ####[facility] [address] [place], [address] Bilirubin [Mass/Vol] 0.50 mg/dL Normal 0.20-1.00 [facility] Comment on above: Result Comment: For patients on eltrombopag therapy, use of Dimension Burt TBIL is not recommended. Performed By: #### L 506.1000, L500.4050, L509.1000 ####[facility] [address] [place], [address] BUN/CRE 37.2 RATIO High 10-20 [facility] Comment on above: Performed By: #### L 506.1000, L500.4050, L509.1000 ####[facility] [address] [place], [address] CA,Total 9.0 mg/dL Normal 8.5-10.1 [facility] Comment on above: Performed By: #### L 506.1000, L500.4050, L509.1000 ####[facility] [address] [place], [address] Chloride [Moles/Vol] 108 mmol/L High 98-107 [facility] Comment on above: Performed By: #### L 506.1000, L500.4050, L509.1000 ####[facility] [address] [place], [address] CO2 [Moles/Vol] 32.0 mmol/L Normal 21.0-32.0 [facility] Comment on above: Performed By: #### L 506.1000, L500.4050, L509.1000 ####[facility] [address] [place], [address] Creatinine [Mass/Vol] 2.42 mg/dL High 0.70-1.30 [facility] Comment on above: Result Comment: The validity of the calculated GFR GFRAA in patients over70 years has not been determined. Clinical correlation isessential. Performed By: #### L 506.1000, L500.4050, L509.1000 ####[facility] [address] [place], [address] EST GFR - AA 33 mL/min Low >60 [facility] Comment on above: Result Comment: Afri can Singaporean GFR Calc Performed By: #### L 506.1000, L500.4050, L509.1000 ####[facility] [address] [place], [address] GAP 3 Low 5-15 [facility] Comment on above: Performed By: #### L 506.1000, L500.4050, L509.1000 ####[facility] [address] [place], [address] GFR/1.73 sq M.predicted among non-blacks MDRD (S/P/Bld) [Vol rate/Area] 27 mL/min/{1.73_m2} Low >60 [facility] Comment on above: Result Comment: Non- GFR Calc Performed By: #### L 506.1000, L500.4050, L509.1000 ####[facility] [address] [place], [address] Globulin (S) [Mass/Vol] 3.6 g/dL Normal 2.2-4.2 [facility] Comment on above: Performed By: #### L 506.1000, L500.4050, L509.1000 ####[facility] [address] [place], [address] Glucose [Mass/Vol] 79 mg/dL Normal 74-106 [facility] Comment on above: Performed By: #### L 506.1000, L500.4050, L509.1000 ####[facility] [address] [place], [address] Potassium [Moles/Vol] 4.5 mmol/L Normal 3.5-5.1 [facility] Comment on above: Performed By: #### L 506.1000, L500.4050, L509.1000 ####[facility] [address] [place], [address] Sodium [Moles/Vol] 143 mmol/L Normal 136-145 [facility] Comment on above: Performed By: #### L 506.1000, L500.4050, L509.1000 ####[facility] [address] [place], [address] T PROT 7.0 g/dL Normal 6.4-8.2 [facility] Comment on above: Performed By: #### L 506.1000, L500.4050, L509.1000 ####[facility] [address] [place], [address] Urea nitrogen [Mass/Vol] 90 mg/dL High 7-18 [facility] Comment on above: Performed By: #### L 506.1000, L500.4050, L509.1000 ####[facility] [address] [place], [address] Gastroenterology Visit Repor ton 01-09-2024 Gastroenterology Visit Report Normal [facility] Iron+Iron Binding Capacityon 01-09-2024 Iron [Mass/Vol] 75 ug/dL Normal 65-175 [facility] Comment on above: Performed By: #### L 100.0100, L503.6030 ####[facility] [address] [place], [address] IRON SATURATION 26.0 Normal 15.0-55.0 [facility] Comment on above: Performed By: #### L 100.0100, L503.6030 ####[facility] [address] [place], [address] TIBC 289 ug/dL Normal 250-450 [facility] Comment on above: Performed By: #### L 100.0100, L503.6030 ####[facility] [address] [place], [address] PTHINon 01-09-2024 PTH 196.4 pg/mL High 18.4-80.1 [facility] Comment on above: Performed By: #### L 506.1000, L500.4050, L509.1000 ####[facility] [address] [place], [address] Vitamin D,25 Hydroxyon 01-08 Vitamin D 25-OH 33.8 ng/mL Normal [facility] Comment on above: Result Comment: Celia min D 25(OH) Status Range Deficiency <20 ng/mL (50nmol/L) Insufficiency 20 - 30 ng/mL (50 - 75 nmol/L) Sufficiency 30 - 100 ng/mL (75 - 250 nmol/L) Toxicity >100 ng/mL (>250 nmol/L) Performed By: #### L 506.1000, L500.4050, L509.1000 ####[facility] [address] [place], [address] L5000.0010on 01-01-2024 Natriuretic peptide B (Bld) [Mass/Vol] 57.9 pg/mL Normal 0.0-100.0 [facility] Comment on above: Order Comment: Speci men Comment: A duplicate report has been generateddue to demographicSpecimen Comment: updates. Result Comment: [employer]IA Catapoooltaur XP methodologyPerformed at: - [facility] [address] [id number] Director: Tanmay Damon PhD, Phone: [phone] Performed By: #### L 100.0100, L501.4020, L5000.0010, L500.2500 ####[facility] [address] [place], [address] EGD Reporton 12-31-2023 EGD Report Normal [facility] Bedside Glucoseon 12-28-2023 FINGERSTICK GLU 192 mg/dL High 74-106 [facility] Comment on above: Result Comment: MYKE GEMENT OF PATIENT CARE PER NURSING PROTOCOL Performed By: #### L 501.080 ####[facility] [address] [place], [address] FINGERSTICK GLU 116 mg/dL High 74-106 [facility] Comment on above: Result Comment: MYKE GEMENT OF PATIENT CARE PER NURSING PROTOCOL Performed By: #### L 501.080 ####[facility] [address] [place], [address] CBC W/Diff, Automatedon 12-10 Absolute Lymph 0.92 X10 3/uL Normal 0.83-4.51 [facility] Comment on above: Performed By: #### L 100.0100 ####[facility] [address] [place], [address] Absolute Neut 3.8 X10 3/uL Normal 2.0-7.7 [facility] Comment on above: Performed By: #### L 100.0100 ####[facility] [address] [place], [address] Basophils/100 WBC (Bld) 0.7 % Normal 0-1 [facility] Comment on above: Performed By: #### L 100.0100 ####[facility] [address] [place], [address] Eosinophils/100 WBC (Bld) 3.8 % Normal 0-5 [facility] Comment on above: Performed By: #### L 100.0100 ####[facility] [address] [place], [address] Erythrocyte distribution width (RBC) [Ratio] 13.6 % Normal 11.6-14.6 [facility] Comment on above: Performed By: #### L 100.0100 ####[facility] [address] [place], [address] Hematocrit (Bld) [Volume fraction] 23.3 % Low 40-54 [facility] Comment on above: Performed By: #### L 100.0100 ####[facility] [address] [place], [address] Hemoglobin (Bld) [Mass/Vol] 7.7 g/dL Low 13.0-16.5 [facility] Comment on above: Performed By: #### L 100.0100 ####[facility] [address] [place], [address] IG% 0.400 Normal 0.0-0.9 [facility] Comment on above: Result Comment: IG% - Immature Granulocytes (promyelocytes, myelocytes andmetamyelocytes) > 1% indicates that a LEFT SHIFT is Present. Performed By: #### L 100.0100 ####[facility] [address] [facility] [place], [address] Lymphocytes/100 WBC (Bld) 16.5 % Low 19-41 [facility] Comment on above: Performed By: #### L 100.0100 ####[facility] [address] [place], [address] MCH (RBC) [Entitic mass] 31.0 pg Normal 27.0-32.0 [facility] Comment on above: Performed By: #### L 100.0100 ####[facility] [address] [place], [address] MCHC (RBC) [Mass/Vol] 33.0 g/dL Normal 32-36 [facility] Comment on above: Performed By: #### L 100.0100 ####[facility] [address] [place], [address] MCV (RBC) [Entitic vol] 94.0 fL Normal 80-94 [facility] Comment on above: Performed By: #### L 100.0100 ####[facility] [address] [place], [address] Monocytes/100 WBC (Bld) 9.7 % Normal 0-10 [facility] Comment on above: Performed By: #### L 100.0100 ####[facility] [address] [place], [address] Neutrophils/100 WBC (Bld) 68.9 % Normal 47-70 [facility] Comment on above: Performed By: #### L 100.0100 ####[facility] [address] [place], [address] Nucleated RBC (Bld) [#/Vol] 0 10*3/uL Normal 0-5 [facility] Comment on above: Performed By: #### L 100.0100 ####[facility] [address] [place], [address] Platelet mean volume (Bld) [Entitic vol] 11.3 fL Normal 6.2-12.0 [facility] Comment on above: Performed By: #### L 100.0100 ####[facility] [address] [place], [address] Platelets (Bld) [#/Vol] 108 10*3/uL Low 150-450 [facility] Comment on above: Performed By: #### L 100.0100 ####[facility] [address] [place], [address] RBC (Bld) [#/Vol] 2.48 10*6/uL Low 4.6-6.2 [facility] Comment on above: Performed By: #### L 100.0100 ####[facility] [address] [place], [address] RDW SD 46.5 fl High 35.1-43.9 [facility] Comment on above: Performed By: #### L 100.0100 ####[facility] [address] [place], [address] WBC (Bld) [#/Vol] 5.6 10*3/uL Normal 4.4-11.0 [facility] Comment on above: Performed By: #### L 100.0100 ####[facility] [address] [place], [address] Discharge Instructionon 12-10 Discharge Instruction Normal [facility] Bedside Glucoseon 12-27-2023 FINGERSTICK GLU 159 mg/dL High 74-106 [facility] Comment on above: Result Comment: MYKE GEMENT OF PATIENT CARE PER NURSING PROTOCOL Performed By: #### L 501.080 ####[facility] [address] [place], [address] FINGERSTICK GLU 168 mg/dL High 74-106 [facility] Comment on above: Result Comment: MYKE GEMENT OF PATIENT CARE PER NURSING PROTOCOL Performed By: #### L 501.080 ####[facility] [address] [place], [address] FINGERSTICK GLU 155 mg/dL High 74-106 [facility] Comment on above: Result Comment: MYKE GEMENT OF PATIENT CARE PER NURSING PROTOCOL Performed By: #### L 501.080 ####[facility] [address] [place], [address] FINGERSTICK GLU 143 mg/dL High 74-106 [facility] Comment on above: Result Comment: MYKE GEMENT OF PATIENT CARE PER NURSING PROTOCOL Performed By: #### L 501.080 ####[facility] [address] [place], [address] FINGERSTICK GLU 193 mg/dL High 74-106 [facility] Comment on above: Result Comment: MYKE GEMENT OF PATIENT CARE PER NURSING PROTOCOL Performed By: #### L 501.080 ####[facility] [address] [place], [address] CBC W/Diff, Automatedon 12-10 Absolute Lymph 1.13 X10 3/uL Normal 0.83-4.51 [facility] Comment on above: Performed By: #### L 100.0100 ####[facility] [address] [place], [address] Absolute Neut 4.0 X10 3/uL Normal 2.0-7.7 [facility] Comment on above: Performed By: #### L 100.0100 ####[facility] [address] [place], [address] Basophils/100 WBC (Bld) 0.5 % Normal 0-1 [facility] Comment on above: Performed By: #### L 100.0100 ####[facility] [address] [place], [address] Eosinophils/100 WBC (Bld) 4.6 % Normal 0-5 [facility] Comment on above: Performed By: #### L 100.0100 ####[facility] [address] [place], [address] Erythrocyte distribution width (RBC) [Ratio] 13.6 % Normal 11.6-14.6 [facility] Comment on above: Performed By: #### L 100.0100 ####[facility] [address] [place], [address] Hematocrit (Bld) [Volume fraction] 24.1 % Low 40-54 [facility] Comment on above: Performed By: #### L 100.0100 ####[facility] [address] [place], [address] Hemoglobin (Bld) [Mass/Vol] 7.8 g/dL Low 13.0-16.5 [facility] Comment on above: Performed By: #### L 100.0100 ####[facility] [address] [place], [address] IG% 0.300 Normal 0.0-0.9 [facility] Comment on above: Result Comment: IG% - Immature Granulocytes (promyelocytes, myelocytes andmetamyelocytes) > 1% indicates that a LEFT SHIFT is Present. Performed By: #### L 100.0100 ####[facility] [address] [place], [address] Lymphocytes/100 WBC (Bld) 19.1 % Normal 19-41 [facility] Comment on above: Performed By: #### L 100.0100 ####[facility] [address] [place], [address] MCH (RBC) [Entitic mass] 30.7 pg Normal 27.0-32.0 [facility] Comment on above: Performed By: #### L 100.0100 ####[facility] [address] [place], [address] MCHC (RBC) [Mass/Vol] 32.4 g/dL Normal 32-36 [facility] Comment on above: Performed By: #### L 100.0100 ####[facility] [address] [place], [address] MCV (RBC) [Entitic vol] 94.9 fL High 80-94 [facility] Comment on above: Performed By: #### L 100.0100 ####[facility] [address] [place], [address] Monocytes/100 WBC (Bld) 7.8 % Normal 0-10 [facility] Comment on above: Performed By: #### L 100.0100 ####[facility] [address] [place], [address] Neutrophils/100 WBC (Bld) 67.7 % Normal 47-70 [facility] Comment on above: Performed By: #### L 100.0100 ####[facility] [address] [place], [address] Nucleated RBC (Bld) [#/Vol] 0 10*3/uL Normal 0-5 [facility] Comment on above: Performed By: #### L 100.0100 ####[facility] [address] [place], [address] Platelet mean volume (Bld) [Entitic vol] 11.6 fL Normal 6.2-12.0 [facility] Comment on above: Performed By: #### L 100.0100 ####[facility] [address] [place], [address] Platelets (Bld) [#/Vol] 119 10*3/uL Low 150-450 [facility] Comment on above: Performed By: #### L 100.0100 ####[facility] [address] [place], [address] RBC (Bld) [#/Vol] 2.54 10*6/uL Low 4.6-6.2 [facility] Comment on above: Performed By: #### L 100.0100 ####[facility] [address] [place], [address] RDW SD 46.5 fl High 35.1-43.9 [facility] Comment on above: Performed By: #### L 100.0100 ####[facility] [address] [place], [address] WBC (Bld) [#/Vol] 5.9 10*3/uL Normal 4.4-11.0 [facility] Comment on above: Performed By: #### L 100.0100 ####[facility] [address] [place], [address] Comprehensive Metabolic Prof ilon 12-27-2023 Albumin [Mass/Vol] 3.0 g/dL Low 3.2-5.0 [facility] Comment on above: Performed By: #### L 500.4050 ####[facility] [address] [place], [address] Albumin/Globulin [Mass ratio] 0.9 {ratio} Normal 0.9-2.4 [facility] Comment on above: Performed By: #### L 500.4050 ####[facility] [address] [place], [address] ALK P 62 U/L Normal 45-117 [facility] Comment on above: Performed By: #### L 500.4050 ####[facility] [address] [place], [address] ALT [Catalytic activity/Vol] 19 U/L Normal 16-61 [facility] Comment on above: Performed By: #### L 500.4050 ####[facility] [address] [place], [address] AST [Catalytic activity/Vol] 15 U/L Normal 15-37 [facility] Comment on above: Performed By: #### L 500.4050 ####[facility] [address] [place], [address] Bilirubin [Mass/Vol] 0.60 mg/dL Normal 0.20-1.00 [facility] Comment on above: Result Comment: For patients on eltrombopag therapy, use of Dimension Burt TBIL is not recommended. Performed By: #### L 500.4050 ####[facility] [address] [place], [address] BUN/CRE 53.3 RATIO High 10-20 [facility] Comment on above: Performed By: #### L 500.4050 ####[facility] [address] [place], [address] CA,Total 9.0 mg/dL Normal 8.5-10.1 [facility] Comment on above: Performed By: #### L 500.4050 ####[facility] [address] [place], [address] Chloride [Moles/Vol] 107 mmol/L Normal 98-107 [facility] Comment on above: Performed By: #### L 500.4050 ####[facility] [address] [place], [address] CO2 [Moles/Vol] 30.0 mmol/L Normal 21.0-32.0 [facility] Comment on above: Performed By: #### L 500.4050 ####[facility] [address] [place], [address] Creatinine [Mass/Vol] 2.25 mg/dL High 0.70-1.30 [facility] Comment on above: Result Comment: The validity of the calculated GFR GFRAA in patients over70 years has not been determined. Clinical correlation isessential. Performed By: #### L 500.4050 ####[facility] [address] [place], [address] ECRCL 24.04 ml/min Normal [facility] Comment on above: Performed By: #### L 500.4050 ####[facility] [address] [place], [address] EST GFR - AA 36 mL/min Low >60 [facility] Comment on above: Result Comment: Afri can Singaporean GFR Calc Performed By: #### L 500.4050 ####[facility] [address] [place], [address] GAP 6 Normal 5-15 [facility] Comment on above: Performed By: #### L 500.4050 ####[facility] [address] [place], [address] GFR/1.73 sq M.predicted among non-blacks MDRD (S/P/Bld) [Vol rate/Area] 30 mL/min/{1.73_m2} Low >60 [facility] Comment on above: Result Comment: Non- GFR Calc Performed By: #### L 500.4050 ####[facility] [address] [place], [address] Globulin (S) [Mass/Vol] 3.4 g/dL Normal 2.2-4.2 [facility] Comment on above: Performed By: #### L 500.4050 ####[facility] [address] [place], [address] Glucose [Mass/Vol] 98 mg/dL Normal 74-106 [facility] Comment on above: Performed By: #### L 500.4050 ####[facility] [address] [place], [address] Potassium [Moles/Vol] 4.0 mmol/L Normal 3.5-5.1 [facility] Comment on above: Performed By: #### L 500.4050 ####[facility] [address] [place], [address] Sodium [Moles/Vol] 142 mmol/L Normal 136-145 [facility] Comment on above: Performed By: #### L 500.4050 ####[facility] [address] [place], [address] T PROT 6.4 g/dL Normal 6.4-8.2 [facility] Comment on above: Performed By: #### L 500.4050 ####[facility] [address] [place], [address] Urea nitrogen [Mass/Vol] 120 mg/dL Invalid Interpretation Code 7-18 [facility] Comment on above: Result Comment: Crit ical Result(s) Called at: 06:52:02 12/27/2023 by:Didier Donovan. Results read back by same. Performed By: #### L 500.4050 ####[facility] [address] [place], [address] Ferritinon 12-27-2023 Ferritin [Mass/Vol] 32 ng/mL Normal 26-388 [facility] Comment on above: Performed By: #### L 503.6550, L503.6030 ####[facility] [address] [place], [address] H Pylori (initial)on 024 H Pylori (initial) Normal [facility] Comment on above: Performed By: #### P H.PYLORI ####[facility] [address] [place], [address] HH, Hemoglobin AND Hematocri ton 12-27-2023 Hematocrit (Bld) [Volume fraction] 24.3 % Low 40-54 [facility] Comment on above: Performed By: #### L 100.0600 ####[facility] [address] [place], [address] Hemoglobin (Bld) [Mass/Vol] 7.9 g/dL Low 13.0-16.5 [facility] Comment on above: Performed By: #### L 100.0600 ####[facility] [address] [place], [address] Hematocrit (Bld) [Volume fraction] 24.1 % Low 40-54 [facility] Comment on above: Performed By: #### L 100.0600 ####[facility] [address] [place], [address] Hemoglobin (Bld) [Mass/Vol] 7.8 g/dL Low 13.0-16.5 [facility] Comment on above: Performed By: #### L 100.0600 ####[facility] [address] [place], [address] Hemoglobin A1con 12-27-2023 HbA1c (Bld) [Mass fraction] 5.7 % High 3.8-5.6 [facility] Comment on above: Result Comment: Norm al < 5.7 % Prediabetic 5.7 - 6.4 % Diabetic >or= 6.5 % Please note range changes. Performed By: #### L [id number] ####[facility] [address] [place], [address] Iron+Iron Binding Capacityon 12-27-2023 Iron [Mass/Vol] 43 ug/dL Low 65-175 [facility] Comment on above: Performed By: #### L 503.6550, L503.6030 ####[facility] [address] [place], [address] IRON SATURATION 16.3 Normal 15.0-55.0 [facility] Comment on above: Performed By: #### L 503.6550, L503.6030 ####[facility] [address] [place], [address] TIBC 264 ug/dL Normal 250-450 [facility] Comment on above: Performed By: #### L 503.6550, L503.6030 ####[facility] [address] [place], [address] MR/POSTOP.ANEon 12-27-2023 MR/POSTOP.ANE Normal [facility] MR/CEGUQCOD5kz 12-27-2023 MR/POSTOPAN2 Normal [facility] Surgery Specimen Level Riky 12-27-2023 Surgery Specimen Level IV Normal [facility] Comment on above: Performed By: #### P SUIV ####[facility] [address] [place], [address] 12 Lead EKGon 12-26-2023 12 Lead EKG Normal [facility] BRCon 12-26-2023 RC Normal [facility] Comment on above: Result Comment: [id number] AN RC TRANSFUSED 12/28/23 1134 Performed By: #### B RC ####[facility] [address] [place], [address] Basic Metabolic Profile (BMP )on 12-26-2023 BUN/CRE 45.8 RATIO High 10-20 [facility] Comment on above: Order Comment: 'TROP ' Serial specimen #1, #2 or #3: 1 Performed By: #### L 100.0100, L501.4020, L5000.0010, L500.2500 ####[facility] [address] [place], [address] CA,Total 9.1 mg/dL Normal 8.5-10.1 [facility] Comment on above: Order Comment: 'TROP ' Serial specimen #1, #2 or #3: 1 Performed By: #### L 100.0100, L501.4020, L5000.0010, L500.2500 ####[facility] [address] [place], [address] Chloride [Moles/Vol] 108 mmol/L High 98-107 [facility] Comment on above: Order Comment: 'TROP ' Serial specimen #1, #2 or #3: 1 Performed By: #### L 100.0100, L501.4020, L5000.0010, L500.2500 ####[facility] [address] [place], [address] CO2 [Moles/Vol] 30.0 mmol/L Normal 21.0-32.0 [facility] Comment on above: Order Comment: 'TROP ' Serial specimen #1, #2 or #3: 1 Performed By: #### L 100.0100, L501.4020, L5000.0010, L500.2500 ####[facility] [address] [place], [address] Creatinine [Mass/Vol] 2.75 mg/dL High 0.70-1.30 [facility] Comment on above: Order Comment: 'TROP ' Serial specimen #1, #2 or #3: 1 Result Comment: The validity of the calculated GFR GFRAA in patients over70 years has not been determined. Clinical correlation isessential. Performed By: #### L 100.0100, L501.4020, L5000.0010, L500.2500 ####[facility] [address] [place], [address] ECRCL 19.84 ml/min Normal [facility] Comment on above: Order Comment: 'TROP ' Serial specimen #1, #2 or #3: 1 Performed By: #### L 100.0100, L501.4020, L5000.0010, L500.2500 ####[facility] [address] [facility] [address] EST GFR - AA 28 mL/min Low >60 [facility] Comment on above: Order Comment: 'TROP ' Serial specimen #1, #2 or #3: 1 Result Comment: Afri can [place]an GFR Calc Performed By: #### L 100.0100, L501.4020, L5000.0010, L500.2500 ####[facility] [address] [facility] [address] GAP 7 Normal 5-15 [facility] Comment on above: Order Comment: 'TROP ' Serial specimen #1, #2 or #3: 1 Performed By: #### L 100.0100, L501.4020, L5000.0010, L500.2500 ####[facility] [address] [place], [address] GFR/1.73 sq M.predicted among non-blacks MDRD (S/P/Bld) [Vol rate/Area] 24 mL/min/{1.73_m2} Low >60 [facility] Comment on above: Order Comment: 'TROP ' Serial specimen #1, #2 or #3: 1 Result Comment: Non- GFR Calc Performed By: #### L 100.0100, L501.4020, L5000.0010, L500.2500 ####[facility] [address] [facility] [address] Glucose [Mass/Vol] 169 mg/dL High 74-106 [facility] Comment on above: Order Comment: 'TROP ' Serial specimen #1, #2 or #3: 1 Result Comment: Fast ing Glucose result greater than or equal to 126 mg/dLsuggests DIABETES MELLITUS per A.D.A. criteria. Performed By: #### L 100.0100, L501.4020, L5000.0010, L500.2500 ####[facility] [address] [place], [address] Potassium [Moles/Vol] 4.6 mmol/L Normal 3.5-5.1 [facility] Comment on above: Order Comment: 'TROP ' Serial specimen #1, #2 or #3: 1 Result Comment: Slig ht Hemolysis, Result may be falsely increased. Performed By: #### L 100.0100, L501.4020, L5000.0010, L500.2500 ####[facility] [address] [place], [address] Sodium [Moles/Vol] 144 mmol/L Normal 136-145 [facility] Comment on above: Order Comment: 'TROP ' Serial specimen #1, #2 or #3: 1 Performed By: #### L 100.0100, L501.4020, L5000.0010, L500.2500 ####[facility] [address] [place], [address] Urea nitrogen [Mass/Vol] 126 mg/dL Invalid Interpretation Code 7-18 [facility] Comment on above: Order Comment: 'TROP ' Serial specimen #1, #2 or #3: 1 Result Comment: Crit ical Result(s) Called at: 14:49:19 12/26/2023 by: JEANETTE TO JENNIFER LOPEZ. Results read back by same. Performed By: #### L 100.0100, L501.4020, L5000.0010, L500.2500 ####[facility] [address] [place], [address] CBC W/Diff, Automatedon 10- Absolute Lymph 0.86 X10 3/uL Normal 0.83-4.51 [facility] Comment on above: Performed By: #### L 100.0100, L501.4020, L5000.0010, L500.2500 ####[facility] [address] [place], [address] Absolute Neut 4.0 X10 3/uL Normal 2.0-7.7 [facility] Comment on above: Performed By: #### L 100.0100, L501.4020, L5000.0010, L500.2500 ####[facility] [address] [place], [address] Basophils/100 WBC (Bld) 0.5 % Normal 0-1 [facility] Comment on above: Performed By: #### L 100.0100, L501.4020, L5000.0010, L500.2500 ####[facility] [address] [place], [address] Eosinophils/100 WBC (Bld) 4.1 % Normal 0-5 [facility] Comment on above: Performed By: #### L 100.0100, L501.4020, L5000.0010, L500.2500 ####[facility] [address] [place], [address] Erythrocyte distribution width (RBC) [Ratio] 13.8 % Normal 11.6-14.6 [facility] Comment on above: Performed By: #### L 100.0100, L501.4020, L5000.0010, L500.2500 ####[facility] [address] [place], [address] Hematocrit (Bld) [Volume fraction] 25.9 % Low 40-54 [facility] Comment on above: Performed By: #### L 100.0100, L501.4020, L5000.0010, L500.2500 ####[facility] [address] [place], [address] Hemoglobin (Bld) [Mass/Vol] 8.3 g/dL Low 13.0-16.5 [facility] Comment on above: Performed By: #### L 100.0100, L501.4020, L5000.0010, L500.2500 ####[facility] [address] [place], [address] IG% 0.500 Normal 0.0-0.9 [facility] Comment on above: Result Comment: IG% - Immature Granulocytes (promyelocytes, myelocytes andmetamyelocytes) > 1% indicates that a LEFT SHIFT is Present. Performed By: #### L 100.0100, L501.4020, L5000.0010, L500.2500 ####[facility] [address] [place], [address] Lymphocytes/100 WBC (Bld) 15.4 % Low 19-41 [facility] Comment on above: Performed By: #### L 100.0100, L501.4020, L5000.0010, L500.2500 ####[facility] [address] [place], [address] MCH (RBC) [Entitic mass] 30.6 pg Normal 27.0-32.0 [facility] Comment on above: Performed By: #### L 100.0100, L501.4020, L5000.0010, L500.2500 ####[facility] [address] [place], [address] MCHC (RBC) [Mass/Vol] 32.0 g/dL Normal 32-36 [facility] Comment on above: Performed By: #### L 100.0100, L501.4020, L5000.0010, L500.2500 ####[facility] [address] [place], [address] MCV (RBC) [Entitic vol] 95.6 fL High 80-94 [facility] Comment on above: Performed By: #### L 100.0100, L501.4020, L5000.0010, L500.2500 ####[facility] [address] [place], [address] Monocytes/100 WBC (Bld) 7.5 % Normal 0-10 [facility] Comment on above: Performed By: #### L 100.0100, L501.4020, L5000.0010, L500.2500 ####[facility] [address] [place], [address] Neutrophils/100 WBC (Bld) 72.0 % High 47-70 [facility] Comment on above: Performed By: #### L 100.0100, L501.4020, L5000.0010, L500.2500 ####[facility] [address] [place], [address] Nucleated RBC (Bld) [#/Vol] 0 10*3/uL Normal 0-5 [facility] Comment on above: Performed By: #### L 100.0100, L501.4020, L5000.0010, L500.2500 ####[facility] [address] [place], [address] Platelet mean volume (Bld) [Entitic vol] 11.8 fL Normal 6.2-12.0 [facility] Comment on above: Performed By: #### L 100.0100, L501.4020, L5000.0010, L500.2500 ####[facility] [address] [place], [address] Platelets (Bld) [#/Vol] 124 10*3/uL Low 150-450 [facility] Comment on above: Performed By: #### L 100.0100, L501.4020, L5000.0010, L500.2500 ####[facility] [address] [place], [address] RBC (Bld) [#/Vol] 2.71 10*6/uL Low 4.6-6.2 [facility] Comment on above: Performed By: #### L 100.0100, L501.4020, L5000.0010, L500.2500 ####[facility] [address] [place], [address] RDW SD 47.5 fl High 35.1-43.9 [facility] Comment on above: Performed By: #### L 100.0100, L501.4020, L5000.0010, L500.2500 ####[facility] [address] [place], [address] WBC (Bld) [#/Vol] 5.6 10*3/uL Normal 4.4-11.0 [facility] Comment on above: Performed By: #### L 100.0100, L501.4020, L5000.0010, L500.2500 ####[facility] [address] [place], [address] Chest 1 View (Portable)on Chest 1 View (Portable) Normal [facility] [facility] Department Summary on 12-26-2023 Emergency Department Summary Normal [facility] H AND P Exam - Hospitaliston 12-26-2023 H&P Exam - Hospitalist Normal [facility] HH, Hemoglobin AND Hematocri ton 12-26-2023 Hematocrit (Bld) [Volume fraction] 23.5 % Low 40-54 [facility] Comment on above: Performed By: #### L 100.0600 ####[facility] [address] [place], [address] Hemoglobin (Bld) [Mass/Vol] 7.6 g/dL Low 13.0-16.5 [facility] Comment on above: Performed By: #### L 100.0600 ####[facility] [address] [place], [address] Hematocrit (Bld) [Volume fraction] 26.4 % Low 40-54 [facility] Comment on above: Performed By: #### L 100.0600 ####[facility] [address] [place], [address] Hemoglobin (Bld) [Mass/Vol] 8.3 g/dL Low 13.0-16.5 [facility] Comment on above: Performed By: #### L 100.0600 ####[facility] [address] [place], [address] L501.4020on 12-26-2023 TROPONIN-I HS 30 pg/mL Normal 3.0-78.0 [facility] Comment on above: Order Comment: 'TROP ' Serial specimen #1, #2 or #3: 1 Result Comment: Plea se Note: New Test Units and Gender Specific Reference Ranges. For more information see Policy Stat Procedure Burt High Sensitivity Troponin (TNIH) and attachments. Performed By: #### L 100.0100, L501.4020, L5000.0010, L500.2500 ####[facility] [address] [place], [address] Liver Profileon 12-26-2023 Albumin [Mass/Vol] 3.1 g/dL Low 3.2-5.0 [facility] Comment on above: Performed By: #### L 500.3400, L501.5200, L501.2300, L300.3900 ####[facility] [address] [place], [address] ALK P 61 U/L Normal 45-117 [facility] Comment on above: Performed By: #### L 500.3400, L501.5200, L501.2300, L300.3900 ####[facility] [address] [place], [address] ALT [Catalytic activity/Vol] 18 U/L Normal 16-61 [facility] Comment on above: Performed By: #### L 500.3400, L501.5200, L501.2300, L300.3900 ####[facility] [address] [place], [address] AST [Catalytic activity/Vol] 20 U/L Normal 15-37 [facility] Comment on above: Result Comment: Slig ht Hemolysis, Result may be falsely increased. Performed By: #### L 500.3400, L501.5200, L501.2300, L300.3900 ####[facility] [address] [place], [address] Bilirubin [Mass/Vol] 0.30 mg/dL Normal 0.20-1.00 [facility] Comment on above: Result Comment: For patients on eltrombopag therapy, use of Dimension Burt TBIL is not recommended. Performed By: #### L 500.3400, L501.5200, L501.2300, L300.3900 ####[facility] [address] [place], [address] Bilirubin.direct [Mass/Vol] 0.10 mg/dL Normal 0.00-0.30 [facility] Comment on above: Performed By: #### L 500.3400, L501.5200, L501.2300, L300.3900 ####[facility] [address] [place], [address] Globulin (S) [Mass/Vol] 3.6 g/dL Normal 2.2-4.2 [facility] Comment on above: Performed By: #### L 500.3400, L501.5200, L501.2300, L300.3900 ####[facility] [address] [place], [address] T PROT 6.7 g/dL Normal 6.4-8.2 [facility] Comment on above: Performed By: #### L 500.3400, L501.5200, L501.2300, L300.3900 ####[facility] [address] [place], [address] MR/CON.PCM.GIon 12-26-2023 MR/CON.PCM.GI Normal [facility] Magnesiumon 12-26-2023 Magnesium [Mass/Vol] 1.5 mg/dL Low 1.6-2.6 [facility] Comment on above: Result Comment: Slig ht Hemolysis, Result may be falsely increased. Performed By: #### L 500.3400, L501.5200, L501.2300, L300.3900 ####[facility] [address] [place], [address] Phosphoruson 12-26-2023 Phosphate [Mass/Vol] 3.8 mg/dL Normal 2.5-4.9 [facility] Comment on above: Performed By: #### L 500.3400, L501.5200, L501.2300, L300.3900 ####[facility] [address] [place], [address] Prothrombin Time w/INRon INR Coag (PPP) [Relative time] 1.1 {INR} Normal [facility] Comment on above: Performed By: #### L 500.3400, L501.5200, L501.2300, L300.3900 ####[facility] [address] [place], [address] PT Coag (PPP) [Time] 14.3 s Normal 11.7-14.9 [facility] Comment on above: Performed By: #### L 500.3400, L501.5200, L501.2300, L300.3900 ####[facility] [address] [place], [address] Type AND Screenon 12-26-2023 Ab SCREEN GEL Negative Normal [facility] Comment on above: Order Comment: HGI Performed By: #### B TS ####[facility] [address] [place], [address] Basic Metabolic Profile (BMP )on 12-13-2023 BUN/CRE 30.0 RATIO High 10-20 [facility] Comment on above: Order Comment: CC: Cole HERNANDEZ Performed By: #### L 503.6030, L500.2500 ####[facility] [address] [place], [address] CA,Total 9.0 mg/dL Normal 8.5-10.1 [facility] Comment on above: Order Comment: CC: Cole HERNANDEZ Performed By: #### L 503.6030, L500.2500 ####[facility] [address], [address] Chloride [Moles/Vol] 110 mmol/L High 98-107 [facility] Comment on above: Order Comment: CC: Cole HERNANDEZ Performed By: #### L 503.6030, L500.2500 ####[facility] [address] [place], [address] CO2 [Moles/Vol] 28.0 mmol/L Normal 21.0-32.0 [facility] Comment on above: Order Comment: CC: Cole HERNANDEZ Performed By: #### L 503.6030, L500.2500 ####[facility] [address] [place], [address] Creatinine [Mass/Vol] 2.37 mg/dL High 0.70-1.30 [facility] Comment on above: Order Comment: CC: Cole HERNANDEZ Result Comment: The validity of the calculated GFR GFRAA in patients over70 years has not been determined. Clinical correlation isessential. Performed By: #### L 503.6030, L500.2500 ####[facility] [address] [place], [address] EST GFR - AA 34 mL/min Low >60 [facility] Comment on above: Order Comment: CC: Cole HERNANDEZ Result Comment: Afri can Singaporean GFR Calc Performed By: #### L 503.6030, L500.2500 ####[facility] [address] [place], [address] GAP 6 Normal 5-15 [facility] Comment on above: Order Comment: CC: Cole HERNANDEZ Performed By: #### L 503.6030, L500.2500 ####[facility] [address] [place], [address] GFR/1.73 sq M.predicted among non-blacks MDRD (S/P/Bld) [Vol rate/Area] 28 mL/min/{1.73_m2} Low >60 [facility] Comment on above: Order Comment: CC: Cole HERNANDEZ Result Comment: Non- GFR Calc Performed By: #### L 503.6030, L500.2500 ####[facility] [address] [place], [address] Glucose [Mass/Vol] 88 mg/dL Normal 74-106 [facility] Comment on above: Order Comment: CC: Cole HERNANDEZ Performed By: #### L 503.6030, L500.2500 ####[facility] [address] [place], [address] Potassium [Moles/Vol] 4.8 mmol/L Normal 3.5-5.1 [facility] Comment on above: Order Comment: CC: Cole HERNANDEZ Performed By: #### L 503.6030, L500.2500 ####[facility] [address] [place], [address] Sodium [Moles/Vol] 144 mmol/L Normal 136-145 [facility] Comment on above: Order Comment: CC: Cole HERNANDEZ Performed By: #### L 503.6030, L500.2500 ####[facility] [address] [place], [address] Urea nitrogen [Mass/Vol] 71 mg/dL High 7-18 [facility] Comment on above: Order Comment: CC: Cole HERNANDEZ Performed By: #### L 503.6030, L500.2500 ####[facility] [address] [place], [address] BUN Normal 7-18 [facility] Comment on above: Order Comment: Order Date: 11/23/23Order Info: 666- - BMP Result Comment: DR. WASHBURN ORDERED BMP TOO Performed By: #### L 500.2500, L100.0100 ####[facility] [address] [place], [address] BUN/CRE Normal 10-20 [facility] Comment on above: Order Comment: Order Date: 11/23/23Order Info: 06- - BMP Result Comment: DR. WASHBURN ORDERED BMP TOO Performed By: #### L 500.2500, L100.0100 ####[facility] [address] [place], [address] CA,Total Normal 8.5-10.1 [facility] Comment on above: Order Comment: Order Date: 11/23/23Order Info: 06- - BMP Result Comment: DR. WASHBURN ORDERED BMP TOO Performed By: #### L 500.2500, L100.0100 ####[facility] [address] [place], [address] CL Normal 98-107 [facility] Comment on above: Order Comment: Order Date: 11/23/23Order Info: 06- - BMP Result Comment: DR. WASHBURN ORDERED BMP TOO Performed By: #### L 500.2500, L100.0100 ####[facility] [address] [place], [address] CO2 Normal 21.0-32.0 [facility] Comment on above: Order Comment: Order Date: 11/23/23Order Info: 666- - BMP Result Comment: DR. WASHBURN ORDERED BMP TOO Performed By: #### L 500.2500, L100.0100 ####[facility] [address] [place], [address] CREAT,SERUM Normal 0.70-1.30 [facility] Comment on above: Order Comment: Order Date: 11/23/23Order Info: 666- - BMP Result Comment: DR. WASHBURN ORDERED BMP TOO Performed By: #### L 500.2500, L100.0100 ####[facility] [address] [place], [address] EST GFR Normal >60 [facility] Comment on above: Order Comment: Order Date: 11/23/23Order Info: 666- - BMP Result Comment: DR. WASHBURN ORDERED BMP TOO Performed By: #### L 500.2500, L100.0100 ####[facility] [address] [place], [address] EST GFR - AA Normal >60 [facility] Comment on above: Order Comment: Order Date: 11/23/23Order Info: 666- - BMP Result Comment: DR. WASHBURN ORDERED BMP TOO Performed By: #### L 500.2500, L100.0100 ####[facility] [address] [place], [address] GAP Normal 5-15 [facility] Comment on above: Order Comment: Order Date: 11/23/23Order Info: 666- - BMP Result Comment: DR. WASHBURN ORDERED BMP TOO Performed By: #### L 500.2500, L100.0100 ####[facility] [address], [address] GLU Normal 74-106 [facility] Comment on above: Order Comment: Order Date: 11/23/23Order Info: 666- - BMP Result Comment: DR. WASHBURN ORDERED BMP TOO Performed By: #### L 500.2500, L100.0100 ####[facility] [address] [place], [address] Potassium Normal 3.5-5.1 [facility] Comment on above: Order Comment: Order Date: 11/23/23Order Info: 0667- - BMP Result Comment: DR. WASHBURN ORDERED BMP TOO Performed By: #### L 500.2500, L100.0100 ####[facility] [address] [place], [address] Basic Metabolic Profile (BMP) Normal 136-145 [facility] Comment on above: Order Comment: Order Date: 11/23/23Order Info: 0667- - BMP Result Comment: DR. WASHBURN ORDERED BMP TOO Performed By: #### L 500.2500, L100.0100 ####[facility] [address] [place], [address] CBC W/Diff, Automatedon 10-0 3-2024 Absolute Lymph 1.19 X10 3/uL Normal 0.83-4.51 [facility] Comment on above: Order Comment: CC.CM P TO DR. Fidencio WASHBURN Performed By: #### L 500.2500, L100.0100 ####[facility] [address] [place], [address] Absolute Neut 3.2 X10 3/uL Normal 2.0-7.7 [facility] Comment on above: Order Comment: CC.CM P TO DR. Fidencio WASHBURN Performed By: #### L 500.2500, L100.0100 ####[facility] [address] [place], [address] Basophils/100 WBC (Bld) 0.4 % Normal 0-1 [facility] Comment on above: Order Comment: CC.CM P TO DR. Fidencio WASHBURN Performed By: #### L 500.2500, L100.0100 ####[facility] [address] [place], [address] Eosinophils/100 WBC (Bld) 8.2 % High 0-5 [facility] Comment on above: Order Comment: CC.CM P TO DR. Fidencio WASHBURN Performed By: #### L 500.2500, L100.0100 ####[facility] [address] [place], [address] Erythrocyte distribution width (RBC) [Ratio] 13.2 % Normal 11.6-14.6 [facility] Comment on above: Order Comment: CC.CM P TO DR. Fidencio WASHBURN Performed By: #### L 500.2500, L100.0100 ####[facility] [address] [place], [address] Hematocrit (Bld) [Volume fraction] 30.3 % Low 40-54 [facility] Comment on above: Order Comment: CC.CM P TO DR. Fidencio WASHBURN Performed By: #### L 500.2500, L100.0100 ####[facility] [address] [place], [address] Hemoglobin (Bld) [Mass/Vol] 9.7 g/dL Low 13.0-16.5 [facility] Comment on above: Order Comment: CC.CM P TO DR. Fidencio WASHBURN Performed By: #### L 500.2500, L100.0100 ####[facility] [address] [place], [address] IG% 0.400 Normal 0.0-0.9 [facility] Comment on above: Order Comment: CC.CM P TO DR. Fidencio WASHBURN Result Comment: IG% - Immature Granulocytes (promyelocytes, myelocytes andmetamyelocytes) > 1% indicates that a LEFT SHIFT is Present. Performed By: #### L 500.2500, L100.0100 ####[facility] [address] [place], [address] Lymphocytes/100 WBC (Bld) 22.2 % Normal 19-41 [facility] Comment on above: Order Comment: CC.CM P TO DR. Fidencio WASHBURN Performed By: #### L 500.2500, L100.0100 ####[facility] [address] [place], [address] MCH (RBC) [Entitic mass] 30.4 pg Normal 27.0-32.0 [facility] Comment on above: Order Comment: CC.CM P TO DR. Fidencio WASHBURN Performed By: #### L 500.2500, L100.0100 ####[facility] [address] [place], [address] MCHC (RBC) [Mass/Vol] 32.0 g/dL Normal 32-36 [facility] Comment on above: Order Comment: CC.CM P TO DR. Fidencio WASHBURN Performed By: #### L 500.2500, L100.0100 ####[facility] [address] [place], [address] MCV (RBC) [Entitic vol] 95.0 fL High 80-94 [facility] Comment on above: Order Comment: CC.CM P TO DR. Fidencio WASHBURN Performed By: #### L 500.2500, L100.0100 ####[facility] [address] [place], [address] Monocytes/100 WBC (Bld) 9.0 % Normal 0-10 [facility] Comment on above: Order Comment: CC.CM P TO DR. Fidencio WASHBURN Performed By: #### L 500.2500, L100.0100 ####[facility] [address] [place], [address] Neutrophils/100 WBC (Bld) 59.8 % Normal 47-70 [facility] Comment on above: Order Comment: CC.CM P TO DR. Fidencio WASHBURN Performed By: #### L 500.2500, L100.0100 ####[facility] [address] [place], [address] Nucleated RBC (Bld) [#/Vol] 0 10*3/uL Normal 0-5 [facility] Comment on above: Order Comment: CC.CM P TO DR. Fidencio WASHBURN Performed By: #### L 500.2500, L100.0100 ####[facility] [address] [place], [address] Platelet mean volume (Bld) [Entitic vol] 10.3 fL Normal 6.2-12.0 [facility] Comment on above: Order Comment: CC.CM P TO DR. Fidencio WASHBURN Performed By: #### L 500.2500, L100.0100 ####[facility] [address] [place], [address] Platelets (Bld) [#/Vol] 152 10*3/uL Normal 150-450 [facility] Comment on above: Order Comment: CC.CM P TO DR. Fidencio WASHBURN Performed By: #### L 500.2500, L100.0100 ####[facility] [address] [place], [address] RBC (Bld) [#/Vol] 3.19 10*6/uL Low 4.6-6.2 [facility] Comment on above: Order Comment: CC.CM P TO DR. Fidencio WASHBURN Performed By: #### L 500.2500, L100.0100 ####[facility] [address] [place], [address] RDW SD 45.6 fl High 35.1-43.9 [facility] Comment on above: Order Comment: CC.CM P TO DR. Fidencio WASHBURN Performed By: #### L 500.2500, L100.0100 ####[facility] [address] [place], [address] WBC (Bld) [#/Vol] 5.4 10*3/uL Normal 4.4-11.0 [facility] Comment on above: Order Comment: CC.CM P TO DR. Fidencio WASHBURN Performed By: #### L 500.2500, L100.0100 ####[facility] [address] [place], [address] Iron+Iron Binding Capacityon 12-13-2023 Iron [Mass/Vol] 39 ug/dL Low 65-175 [facility] Comment on above: Order Comment: CC: Cole HERNANDEZ Performed By: #### L 503.6030, L500.2500 ####[facility] [address] [place], [address] IRON SATURATION 14.6 Low 15.0-55.0 [facility] Comment on above: Order Comment: CC: Cole HERNANDEZ Performed By: #### L 503.6030, L500.2500 ####[facility] [address] [place], [address] TIBC 268 ug/dL Normal 250-450 [facility] Comment on above: Order Comment: CC: Cole HERNANDEZ Performed By: #### L 503.6030, L500.2500 ####[facility] [address] [place], [address] 12 Lead EKGon 12-10-2023 12 Lead EKG Normal [facility] Basic Metabolic Profile (BMP )on 12-10-2023 BUN/CRE 42.8 RATIO High 10-20 [facility] Comment on above: Performed By: #### L 300.3900, L100.0100, L501.9985, L500.2500, L300.4310 ####[facility] [address] [place], [address] CA,Total 9.1 mg/dL Normal 8.5-10.1 [facility] Comment on above: Performed By: #### L 300.3900, L100.0100, L501.9985, L500.2500, L300.4310 ####[facility] [address] [place], [address] Chloride [Moles/Vol] 108 mmol/L High 98-107 [facility] Comment on above: Performed By: #### L 300.3900, L100.0100, L501.9985, L500.2500, L300.4310 ####[facility] [address] [place], [address] CO2 [Moles/Vol] 26.0 mmol/L Normal 21.0-32.0 [facility] Comment on above: Performed By: #### L 300.3900, L100.0100, L501.9985, L500.2500, L300.4310 ####[facility] [address] [place], [address] Creatinine [Mass/Vol] 1.87 mg/dL High 0.70-1.30 [facility] Comment on above: Result Comment: The validity of the calculated GFR GFRAA in patients over70 years has not been determined. Clinical correlation isessential. Performed By: #### L 300.3900, L100.0100, L501.9985, L500.2500, L300.4310 ####[facility] [address] [place], [address] ECRCL 29.90 ml/min Normal [facility] Comment on above: Performed By: #### L 300.3900, L100.0100, L501.9985, L500.2500, L300.4310 ####[facility] [address] [place], [address] EST GFR - AA 44 mL/min Low >60 [facility] Comment on above: Result Comment: Afri can Singaporean GFR Calc Performed By: #### L 300.3900, L100.0100, L501.9985, L500.2500, L300.4310 ####[facility] [address] [place], [address] GAP 11 Normal 5-15 [facility] Comment on above: Performed By: #### L 300.3900, L100.0100, L501.9985, L500.2500, L300.4310 ####[facility] [address] [place], [address] GFR/1.73 sq M.predicted among non-blacks MDRD (S/P/Bld) [Vol rate/Area] 37 mL/min/{1.73_m2} Low >60 [facility] Comment on above: Result Comment: Non- GFR Calc Performed By: #### L 300.3900, L100.0100, L501.9985, L500.2500, L300.4310 ####[facility] [address] [place], [address] Glucose [Mass/Vol] 147 mg/dL High 74-106 [facility] Comment on above: Result Comment: Fast ing Glucose result greater than or equal to 126 mg/dLsuggests DIABETES MELLITUS per A.D.A. criteria. Performed By: #### L 300.3900, L100.0100, L501.9985, L500.2500, L300.4310 ####[facility] [address] [place], [address] Potassium [Moles/Vol] 4.8 mmol/L Normal 3.5-5.1 [facility] Comment on above: Performed By: #### L 300.3900, L100.0100, L501.9985, L500.2500, L300.4310 ####[facility] [address], [address] Sodium [Moles/Vol] 145 mmol/L Normal 136-145 [facility] Comment on above: Performed By: #### L 300.3900, L100.0100, L501.9985, L500.2500, L300.4310 ####[facility] [address] [place], [address] Urea nitrogen [Mass/Vol] 80 mg/dL High 7-18 [facility] Comment on above: Performed By: #### L 300.3900, L100.0100, L501.9985, L500.2500, L300.4310 ####[facility] [address] [place], [address] Bedside Glucoseon 12-09-2023 FINGERSTICK GLU 113 mg/dL High 74-106 [facility] Comment on above: Result Comment: MYKE GEMENT OF PATIENT CARE PER NURSING PROTOCOL Performed By: #### L 501.080 ####[facility] [address] [place], [address] FINGERSTICK GLU 142 mg/dL High 74-106 [facility] Comment on above: Result Comment: MYKE GEMENT OF PATIENT CARE PER NURSING PROTOCOL Performed By: #### L 501.080 ####[facility] [address] [place], [address] FINGERSTICK GLU 136 mg/dL High 74-106 [facility] Comment on above: Result Comment: MYKE GEMENT OF PATIENT CARE PER NURSING PROTOCOL Performed By: #### L 501.080 ####[facility] [address] [place], [address] CBC W/Diff, Automatedon 11-12 0 Absolute Lymph 0.72 X10 3/uL Low 0.83-4.51 [facility] Comment on above: Performed By: #### L 300.3900, L100.0100, L501.9985, L500.2500, L300.4310 ####[facility] [address] [place], [address] Absolute Neut 2.9 X10 3/uL Normal 2.0-7.7 [facility] Comment on above: Performed By: #### L 300.3900, L100.0100, L501.9985, L500.2500, L300.4310 ####[facility] [address] [place], [address] Basophils/100 WBC (Bld) 0.7 % Normal 0-1 [facility] Comment on above: Performed By: #### L 300.3900, L100.0100, L501.9985, L500.2500, L300.4310 ####[facility] [address] [place], [address] Eosinophils/100 WBC (Bld) 6.5 % High 0-5 [facility] Comment on above: Performed By: #### L 300.3900, L100.0100, L501.9985, L500.2500, L300.4310 ####[facility] [address] [place], [address] Erythrocyte distribution width (RBC) [Ratio] 14.4 % Normal 11.6-14.6 [facility] Comment on above: Performed By: #### L 300.3900, L100.0100, L501.9985, L500.2500, L300.4310 ####[facility] [address] [place], [address] Hematocrit (Bld) [Volume fraction] 28.8 % Low 40-54 [facility] Comment on above: Performed By: #### L 300.3900, L100.0100, L501.9985, L500.2500, L300.4310 ####[facility] [address] [place], [address] Hemoglobin (Bld) [Mass/Vol] 9.4 g/dL Low 13.0-16.5 [facility] Comment on above: Performed By: #### L 300.3900, L100.0100, L501.9985, L500.2500, L300.4310 ####[facility] [address] [place], [address] IG% 0.500 Normal 0.0-0.9 [facility] Comment on above: Result Comment: IG% - Immature Granulocytes (promyelocytes, myelocytes andmetamyelocytes) > 1% indicates that a LEFT SHIFT is Present. Performed By: #### L 300.3900, L100.0100, L501.9985, L500.2500, L300.4310 ####[facility] [address] [place], [address] Lymphocytes/100 WBC (Bld) 16.7 % Low 19-41 [facility] Comment on above: Performed By: #### L 300.3900, L100.0100, L501.9985, L500.2500, L300.4310 ####[facility] [address] [place], [address] MCH (RBC) [Entitic mass] 30.7 pg Normal 27.0-32.0 [facility] Comment on above: Performed By: #### L 300.3900, L100.0100, L501.9985, L500.2500, L300.4310 ####[facility] [address] [place], [address] MCHC (RBC) [Mass/Vol] 32.6 g/dL Normal 32-36 [facility] Comment on above: Performed By: #### L 300.3900, L100.0100, L501.9985, L500.2500, L300.4310 ####[facility] [address] [place], [address] MCV (RBC) [Entitic vol] 94.1 fL High 80-94 [facility] Comment on above: Performed By: #### L 300.3900, L100.0100, L501.9985, L500.2500, L300.4310 ####[facility] [address] [place], [address] Monocytes/100 WBC (Bld) 7.2 % Normal 0-10 [facility] Comment on above: Performed By: #### L 300.3900, L100.0100, L501.9985, L500.2500, L300.4310 ####[facility] [facility] [address] [place], [address] Neutrophils/100 WBC (Bld) 68.4 % Normal 47-70 [facility] Comment on above: Performed By: #### L 300.3900, L100.0100, L501.9985, L500.2500, L300.4310 ####[facility] [address] [place], [address] Nucleated RBC (Bld) [#/Vol] 0 10*3/uL Normal 0-5 [facility] Comment on above: Performed By: #### L 300.3900, L100.0100, L501.9985, L500.2500, L300.4310 ####[facility] [address] [place], [address] Platelet mean volume (Bld) [Entitic vol] 11.3 fL Normal 6.2-12.0 [facility] Comment on above: Performed By: #### L 300.3900, L100.0100, L501.9985, L500.2500, L300.4310 ####[facility] [address] [place], [address] Platelets (Bld) [#/Vol] 89 10*3/uL Low 150-450 [facility] Comment on above: Performed By: #### L 300.3900, L100.0100, L501.9985, L500.2500, L300.4310 ####[facility] [address] [place], [address] RBC (Bld) [#/Vol] 3.06 10*6/uL Low 4.6-6.2 [facility] Comment on above: Performed By: #### L 300.3900, L100.0100, L501.9985, L500.2500, L300.4310 ####[facility] [address] [place], [address] RDW SD 48.5 fl High 35.1-43.9 [facility] Comment on above: Performed By: #### L 300.3900, L100.0100, L501.9985, L500.2500, L300.4310 ####[facility] [address] [place], [address] WBC (Bld) [#/Vol] 4.3 10*3/uL Low 4.4-11.0 [facility] Comment on above: Performed By: #### L 300.3900, L100.0100, L501.9985, L500.2500, L300.4310 ####[facility] [address] [place], [address] Colonoscopy Reporton 024 Colonoscopy Report Normal [facility] Discharge Instructionon 11-12 Discharge Instruction Normal [facility] Hemoglobin A1con 12-10-2023 HbA1c (Bld) [Mass fraction] 5.9 % High 3.8-5.6 [facility] Comment on above: Result Comment: Norm al < 5.7 % Prediabetic 5.7 - 6.4 % Diabetic >or= 6.5 % Please note range changes. Performed By: #### L 300.3900, L100.0100, L501.9985, L500.2500, L300.4310 ####[facility] [address] [place], [address] MR/POSTOP.ANEon 12-10-2023 MR/POSTOP.ANE Normal [facility] MR/RBVQYUDE4gb 12-10-2023 MR/POSTOPAN2 Normal [facility] MR/POSTOPAN2 Normal [facility] Partial Thromboplast Timeon 12-10-2023 aPTT Coag (Bld) [Time] 32.0 s Normal 24.1-36.2 [facility] Comment on above: Performed By: #### L 300.3900, L100.0100, L501.9985, L500.2500, L300.4310 ####[facility] [address] [place], [address] Prothrombin Time w/INRon INR Coag (PPP) [Relative time] 1.2 {INR} Normal [facility] Comment on above: Performed By: #### L 300.3900, L100.0100, L501.9985, L500.2500, L300.4310 ####[facility] [address] [place], [address] PT Coag (PPP) [Time] 15.5 s High 11.7-14.9 [facility] Comment on above: Performed By: #### L 300.3900, L100.0100, L501.9985, L500.2500, L300.4310 ####[facility] [address] [place], [address] Surgery Specimen Level Riky 12-10-2023 Surgery Specimen Level IV Normal [facility] Comment on above: Performed By: #### P SUIV ####[facility] [address] [place], [address] Basic Metabolic Profile (BMP )on 12-09-2023 BUN/CRE 48.6 RATIO High 10-20 [facility] Comment on above: Performed By: #### L 500.2500, L100.0100 ####[facility] [address] [place], [address] CA,Total 9.3 mg/dL Normal 8.5-10.1 [facility] Comment on above: Performed By: #### L 500.2500, L100.0100 ####[facility] [address] [place], [address] Chloride [Moles/Vol] 107 mmol/L Normal 98-107 [facility] Comment on above: Performed By: #### L 500.2500, L100.0100 ####[facility] [address] [place], [address] CO2 [Moles/Vol] 26.0 mmol/L Normal 21.0-32.0 [facility] Comment on above: Performed By: #### L 500.2500, L100.0100 ####[facility] [address] [place], [address] Creatinine [Mass/Vol] 2.20 mg/dL High 0.70-1.30 [facility] Comment on above: Result Comment: The validity of the calculated GFR GFRAA in patients over70 years has not been determined. Clinical correlation isessential. Performed By: #### L 500.2500, L100.0100 ####[facility] [address] [place], [address] ECRCL 25.45 ml/min Normal [facility] Comment on above: Performed By: #### L 500.2500, L100.0100 ####[facility] [address] [place], [address] EST GFR - AA 37 mL/min Low >60 [facility] Comment on above: Result Comment: Afri can Singaporean GFR Calc Performed By: #### L 500.2500, L100.0100 ####[facility] [address] [place], [address] GAP 7 Normal 5-15 [facility] Comment on above: Performed By: #### L 500.2500, L100.0100 ####[facility] [address] [place], [address] GFR/1.73 sq M.predicted among non-blacks MDRD (S/P/Bld) [Vol rate/Area] 30 mL/min/{1.73_m2} Low >60 [facility] Comment on above: Result Comment: Non- GFR Calc Performed By: #### L 500.2500, L100.0100 ####[facility] [address] [place], [address] Glucose [Mass/Vol] 191 mg/dL High 74-106 [facility] Comment on above: Result Comment: Fast ing Glucose result greater than or equal to 126 mg/dLsuggests DIABETES MELLITUS per A.D.A. criteria. Performed By: #### L 500.2500, L100.0100 ####[facility] [address] [place], [address] Potassium [Moles/Vol] 4.9 mmol/L Normal 3.5-5.1 [facility] Comment on above: Performed By: #### L 500.2500, L100.0100 ####[facility] [address] [place], [address] Sodium [Moles/Vol] 140 mmol/L Normal 136-145 [facility] Comment on above: Performed By: #### L 500.2500, L100.0100 ####[facility] [address] [place], [address] Urea nitrogen [Mass/Vol] 107 mg/dL Invalid Interpretation Code 7-18 [facility] Comment on above: Result Comment: Crit ical Result(s) Called at: 06:23:13 12/09/2023 by:Didier Kitchen. Results read back by same. Performed By: #### L 500.2500, L100.0100 ####[facility] [address] [place], [address] Bedside Glucoseon 12-09-2023 FINGERSTICK GLU 138 mg/dL High 74-106 [facility] Comment on above: Result Comment: MYKE SAGE OF PATIENT CARE PER NURSING PROTOCOL Performed By: #### L 501.080 ####[facility] [address] [place], [address] FINGERSTICK GLU 164 mg/dL High 74-106 [facility] Comment on above: Result Comment: MYKE GEMENT OF PATIENT CARE PER NURSING PROTOCOL Performed By: #### L 501.080 ####[facility] [address] [place], [address] FINGERSTICK GLU 140 mg/dL High 74-106 [facility] Comment on above: Result Comment: MYKE GEMENT OF PATIENT CARE PER NURSING PROTOCOL Performed By: #### L 501.080 ####[facility] [address] [place], [address] FINGERSTICK GLU 161 mg/dL High 74-106 [facility] Comment on above: Result Comment: MYKE GEMENT OF PATIENT CARE PER NURSING PROTOCOL Performed By: #### L 501.080 ####[facility] [address] [place], [address] CBC W/Diff, Automatedon - Absolute Lymph 1.00 X10 3/uL Normal 0.83-4.51 [facility] Comment on above: Performed By: #### L 500.2500, L100.0100 ####[facility] [address] [place], [address] Absolute Neut 4.5 X10 3/uL Normal 2.0-7.7 [facility] Comment on above: Performed By: #### L 500.2500, L100.0100 ####[facility] [address] [place], [address] Basophils/100 WBC (Bld) 0.5 % Normal 0-1 [facility] Comment on above: Performed By: #### L 500.2500, L100.0100 ####[facility] [address] [place], [address] Eosinophils/100 WBC (Bld) 4.6 % Normal 0-5 [facility] Comment on above: Performed By: #### L 500.2500, L100.0100 ####[facility] [address] [place], [address] Erythrocyte distribution width (RBC) [Ratio] 14.2 % Normal 11.6-14.6 [facility] Comment on above: Performed By: #### L 500.2500, L100.0100 ####[facility] [address] [place], [address] Hematocrit (Bld) [Volume fraction] 29.0 % Low 40-54 [facility] Comment on above: Performed By: #### L 500.2500, L100.0100 ####[facility] [address] [place], [address] Hemoglobin (Bld) [Mass/Vol] 9.3 g/dL Low 13.0-16.5 [facility] Comment on above: Performed By: #### L 500.2500, L100.0100 ####[facility] [address] [place], [address] IG% 0.300 Normal 0.0-0.9 [facility] Comment on above: Result Comment: IG% - Immature Granulocytes (promyelocytes, myelocytes andmetamyelocytes) > 1% indicates that a LEFT SHIFT is Present. Performed By: #### L 500.2500, L100.0100 ####[facility] [address] [place], [address] Lymphocytes/100 WBC (Bld) 15.9 % Low 19-41 [facility] Comment on above: Performed By: #### L 500.2500, L100.0100 ####[facility] [address] [place], [address] MCH (RBC) [Entitic mass] 30.2 pg Normal 27.0-32.0 [facility] Comment on above: Performed By: #### L 500.2500, L100.0100 ####[facility] [address] [place], [address] MCHC (RBC) [Mass/Vol] 32.1 g/dL Normal 32-36 [facility] Comment on above: Performed By: #### L 500.2500, L100.0100 ####[facility] [address] [place], [address] MCV (RBC) [Entitic vol] 94.2 fL High 80-94 [facility] Comment on above: Performed By: #### L 500.2500, L100.0100 ####[facility] [address] [place], [address] Monocytes/100 WBC (Bld) 6.7 % Normal 0-10 [facility] Comment on above: Performed By: #### L 500.2500, L100.0100 ####[facility] [address] [place], [address] Neutrophils/100 WBC (Bld) 72.0 % High 47-70 [facility] Comment on above: Performed By: #### L 500.2500, L100.0100 ####[facility] [address] [place], [address] Nucleated RBC (Bld) [#/Vol] 0 10*3/uL Normal 0-5 [facility] Comment on above: Performed By: #### L 500.2500, L100.0100 ####[facility] [address] [place], [address] Platelet mean volume (Bld) [Entitic vol] 11.2 fL Normal 6.2-12.0 [facility] Comment on above: Performed By: #### L 500.2500, L100.0100 ####[facility] [address] [place], [address] Platelets (Bld) [#/Vol] 88 10*3/uL Low 150-450 [facility] Comment on above: Performed By: #### L 500.2500, L100.0100 ####[facility] [address] [place], [address] RBC (Bld) [#/Vol] 3.08 10*6/uL Low 4.6-6.2 [facility] Comment on above: Performed By: #### L 500.2500, L100.0100 ####[facility] [address] [place], [address] RDW SD 47.8 fl High 35.1-43.9 [facility] Comment on above: Performed By: #### L 500.2500, L100.0100 ####[facility] [address] [place], [address] WBC (Bld) [#/Vol] 6.3 10*3/uL Normal 4.4-11.0 [facility] Comment on above: Performed By: #### L 500.2500, L100.0100 ####[facility] [address] [place], [address] MR/CON.PCM.GIon 12-09-2023 MR/CON.PCM.GI Normal [facility] Basic Metabolic Profile (BMP )on 12-08-2023 BUN/CRE 43.2 RATIO High 10-20 [facility] Comment on above: Performed By: #### L 500.2500, L501.5200, L100.0100, L501.2300 ####[facility] [address] [place], [address] CA,Total 8.9 mg/dL Normal 8.5-10.1 [facility] Comment on above: Performed By: #### L 500.2500, L501.5200, L100.0100, L501.2300 ####[facility] [address] [place], [address] Chloride [Moles/Vol] 107 mmol/L Normal 98-107 [facility] Comment on above: Performed By: #### L 500.2500, L501.5200, L100.0100, L501.2300 ####[facility] [address] [place], [address] CO2 [Moles/Vol] 27.0 mmol/L Normal 21.0-32.0 [facility] Comment on above: Performed By: #### L 500.2500, L501.5200, L100.0100, L501.2300 ####[facility] [address] [place], [address] Creatinine [Mass/Vol] 2.29 mg/dL High 0.70-1.30 [facility] Comment on above: Result Comment: The validity of the calculated GFR GFRAA in patients over70 years has not been determined. Clinical correlation isessential. Performed By: #### L 500.2500, L501.5200, L100.0100, L501.2300 ####[facility] [address] [place], [address] ECRCL 24.45 ml/min Normal [facility] Comment on above: Performed By: #### L 500.2500, L501.5200, L100.0100, L501.2300 ####[facility] [address] [place], [address] EST GFR - AA 35 mL/min Low >60 [facility] Comment on above: Result Comment: Afri can Singaporean GFR Calc Performed By: #### L 500.2500, L501.5200, L100.0100, L501.2300 ####[facility] [address] [place], [address] GAP 5 Normal 5-15 [facility] Comment on above: Performed By: #### L 500.2500, L501.5200, L100.0100, L501.2300 ####[facility] [address] [place], [address] GFR/1.73 sq M.predicted among non-blacks MDRD (S/P/Bld) [Vol rate/Area] 29 mL/min/{1.73_m2} Low >60 [facility] Comment on above: Result Comment: Non- GFR Calc Performed By: #### L 500.2500, L501.5200, L100.0100, L501.2300 ####[facility] [address] [place], [address] Glucose [Mass/Vol] 142 mg/dL High 74-106 [facility] Comment on above: Result Comment: Fast ing Glucose result greater than or equal to 126 mg/dLsuggests DIABETES MELLITUS per A.D.A. criteria. Performed By: #### L 500.2500, L501.5200, L100.0100, L501.2300 ####[facility] [address] [place], [address] Potassium [Moles/Vol] 4.8 mmol/L Normal 3.5-5.1 [facility] Comment on above: Performed By: #### L 500.2500, L501.5200, L100.0100, L501.2300 ####[facility] [address] [place], [address] Sodium [Moles/Vol] 139 mmol/L Normal 136-145 [facility] Comment on above: Performed By: #### L 500.2500, L501.5200, L100.0100, L501.2300 ####[facility] [address] [place], [address] Urea nitrogen [Mass/Vol] 99 mg/dL High 7-18 [facility] Comment on above: Performed By: #### L 500.2500, L501.5200, L100.0100, L501.2300 ####[facility] [address] [place], [address] Bedside Glucoseon 12-08-2023 FINGERSTICK GLU 182 mg/dL High 74-106 [facility] Comment on above: Result Comment: MYKE GEMENT OF PATIENT CARE PER NURSING PROTOCOL Performed By: #### L 501.080 ####[facility] [address] [place], [address] FINGERSTICK GLU 176 mg/dL High 74-106 [facility] Comment on above: Result Comment: MYKE GEMENT OF PATIENT CARE PER NURSING PROTOCOL Performed By: #### L 501.080 ####[facility] [address], [address] FINGERSTICK GLU 220 mg/dL High -106 [facility] Comment on above: Result Comment: MYKE GEMENT OF PATIENT CARE PER NURSING PROTOCOL Performed By: #### L 501.080 ####[facility] [address] [place], [address] FINGERSTICK GLU 131 mg/dL High -106 [facility] Comment on above: Result Comment: MYKE GEMENT OF PATIENT CARE PER NURSING PROTOCOL Performed By: #### L 501.080 ####[facility] [address], [address] CBC W/Diff, Automatedon 11-11 TEAR DROP RARE Normal [facility] Comment on above: Performed By: #### L 500.2500, L501.5200, L100.0100, L501.2300 ####[facility] [address], [address] HYPOCHROMASIA 1+ Normal [facility] Comment on above: Performed By: #### L 500.2500, L501.5200, L100.0100, L501.2300 ####[facility] [address], [address] MICROCYTIC 1+ Normal [facility] Comment on above: Performed By: #### L 500.2500, L501.5200, L100.0100, L501.2300 ####[facility] [address] [place], [address] OVALOCYTE 2+ Normal [facility] Comment on above: Performed By: #### L 500.2500, L501.5200, L100.0100, L501.2300 ####[facility] [address] [place], [address] POLYCHROMASIA 1+ Normal [facility] Comment on above: Performed By: #### L 500.2500, L501.5200, L100.0100, L501.2300 ####[facility] [address] [place], [address] Anisocytosis Ql (Bld) 2+ Normal [facility] Comment on above: Performed By: #### L 500.2500, L501.5200, L100.0100, L501.2300 ####[facility] [address] [place], [address] PLT EST MOD DEC Normal ADEQ [facility] Comment on above: Performed By: #### L 500.2500, L501.5200, L100.0100, L501.2300 ####[facility] [address] [place], [address] SMEAR COMMENT SCANNED Normal [facility] Comment on above: Performed By: #### L 500.2500, L501.5200, L100.0100, L501.2300 ####[facility] [address] [place], [address] Magnesiumon 12-08-2023 Magnesium [Mass/Vol] 2.1 mg/dL Normal 1.6-2.6 [facility] Comment on above: Performed By: #### L 500.2500, L501.5200, L100.0100, L501.2300 ####[facility] [address] [place], [address] Phosphoruson 12-08-2023 Phosphate [Mass/Vol] 3.5 mg/dL Normal 2.5-4.9 [facility] Comment on above: Performed By: #### L 500.2500, L501.5200, L100.0100, L501.2300 ####[facility] [address] [place], [address] Stool Occult Blood iFOBon STOB Positive Normal [facility] Comment on above: Performed By: #### M 100.7900 ####[facility] [address] [place], [address] Bedside Glucoseon 12-07-2023 FINGERSTICK GLU 202 mg/dL High [address] [place] [address] Comment on above: Result Comment: MYKE GEMENT OF PATIENT CARE PER NURSING PROTOCOL Performed By: #### L 501.080 ####[facility] [address] [place], [address] FINGERSTICK GLU 206 mg/dL High [address] [place] [address] Comment on above: Result Comment: MYKE GEMENT OF PATIENT CARE PER NURSING PROTOCOL Performed By: #### L 501.080 ####[facility] [address] [place], [address] FINGERSTICK GLU 200 mg/dL High [address] [place] [address] Comment on above: Result Comment: MYKE GEMENT OF PATIENT CARE PER NURSING PROTOCOL Performed By: #### L 501.080 ####[facility] [address] [place], [address] FINGERSTICK GLU 136 mg/dL High [address] [place] [address] Comment on above: Result Comment: MYKE GEMENT OF PATIENT CARE PER NURSING PROTOCOL Performed By: #### L 501.080 ####[facility] [address] [place], [address] CBC W/Diff, Automatedon 09-2 Absolute Lymph 0.80 X10 3/uL Low 0.83-4.51 [facility] Comment on above: Performed By: #### L 100.0100, L503.6550, L500.4050, L503.6030, L501.5200 ####[facility] [address] [place], [address] Absolute Neut 5.6 X10 3/uL Normal 2.0-7.7 [facility] Comment on above: Performed By: #### L 100.0100, L503.6550, L500.4050, L503.6030, L501.5200 ####[facility] [address] [place], [address] Basophils/100 WBC (Bld) 0.1 % Normal 0-1 [facility] Comment on above: Performed By: #### L 100.0100, L503.6550, L500.4050, L503.6030, L501.5200 ####[facility] [address] [place], [address] Eosinophils/100 WBC (Bld) 2.7 % Normal 0-5 [facility] Comment on above: Performed By: #### L 100.0100, L503.6550, L500.4050, L503.6030, L501.5200 ####[facility] [address] [place], [address] Erythrocyte distribution width (RBC) [Ratio] 14.8 % High 11.6-14.6 [facility] Comment on above: Performed By: #### L 100.0100, L503.6550, L500.4050, L503.6030, L501.5200 ####[facility] [address] [place], [address] Hematocrit (Bld) [Volume fraction] 25.2 % Low 40-54 [facility] Comment on above: Performed By: #### L 100.0100, L503.6550, L500.4050, L503.6030, L501.5200 ####[facility] [address] [place], [address] Hemoglobin (Bld) [Mass/Vol] 8.0 g/dL Low 13.0-16.5 [facility] Comment on above: Performed By: #### L 100.0100, L503.6550, L500.4050, L503.6030, L501.5200 ####[facility] [address] [place], [address] IG% 0.400 Normal 0.0-0.9 [facility] Comment on above: Result Comment: IG% - Immature Granulocytes (promyelocytes, myelocytes andmetamyelocytes) > 1% indicates that a LEFT SHIFT is Present. Performed By: #### L 100.0100, L503.6550, L500.4050, L503.6030, L501.5200 ####[facility] [address] [place], [address] Lymphocytes/100 WBC (Bld) 11.3 % Low 19-41 [facility] Comment on above: Performed By: #### L 100.0100, L503.6550, L500.4050, L503.6030, L501.5200 ####[facility] [address] [place], [address] MCH (RBC) [Entitic mass] 30.4 pg Normal 27.0-32.0 [facility] Comment on above: Performed By: #### L 100.0100, L503.6550, L500.4050, L503.6030, L501.5200 ####[facility] [address] [place], [address] MCHC (RBC) [Mass/Vol] 31.7 g/dL Low 32-36 [facility] Comment on above: Performed By: #### L 100.0100, L503.6550, L500.4050, L503.6030, L501.5200 ####[facility] [address] [place], [address] MCV (RBC) [Entitic vol] 95.8 fL High 80-94 [facility] Comment on above: Performed By: #### L 100.0100, L503.6550, L500.4050, L503.6030, L501.5200 ####[facility] [address] [place], [address] Monocytes/100 WBC (Bld) 6.1 % Normal 0-10 [facility] Comment on above: Performed By: #### L 100.0100, L503.6550, L500.4050, L503.6030, L501.5200 ####[facility] [address] [place], [address] Neutrophils/100 WBC (Bld) 79.4 % High 47-70 [facility] Comment on above: Performed By: #### L 100.0100, L503.6550, L500.4050, L503.6030, L501.5200 ####[facility] [address] [place], [address] Nucleated RBC (Bld) [#/Vol] 0 10*3/uL Normal 0-5 [facility] Comment on above: Performed By: #### L 100.0100, L503.6550, L500.4050, L503.6030, L501.5200 ####[facility] [address] [place], [address] Platelet mean volume (Bld) [Entitic vol] 11.5 fL Normal 6.2-12.0 [facility] Comment on above: Performed By: #### L 100.0100, L503.6550, L500.4050, L503.6030, L501.5200 ####[facility] [address] [place], [address] Platelets (Bld) [#/Vol] 82 10*3/uL Low 150-450 [facility] Comment on above: Performed By: #### L 100.0100, L503.6550, L500.4050, L503.6030, L501.5200 ####[facility] [address] [place], [address] RBC (Bld) [#/Vol] 2.63 10*6/uL Low 4.6-6.2 [facility] Comment on above: Performed By: #### L 100.0100, L503.6550, L500.4050, L503.6030, L501.5200 ####[facility] [address] [place], [address] RDW SD 52.0 fl High 35.1-43.9 [facility] Comment on above: Performed By: #### L 100.0100, L503.6550, L500.4050, L503.6030, L501.5200 ####[facility] [address] [place], [address] WBC (Bld) [#/Vol] 7.1 10*3/uL Normal 4.4-11.0 [facility] Comment on above: Performed By: #### L 100.0100, L503.6550, L500.4050, L503.6030, L501.5200 ####[facility] [address] [place], [address] Comprehensive Metabolic Prof ilon 12-07-2023 Albumin [Mass/Vol] 2.9 g/dL Low 3.2-5.0 [facility] Comment on above: Order Comment: Comme nts: May add to ED labs Performed By: #### L 100.0100, L503.6550, L500.4050, L503.6030, L501.5200 ####[facility] [address] [place], [address] Albumin/Globulin [Mass ratio] 0.8 {ratio} Low 0.9-2.4 [facility] Comment on above: Order Comment: Comme nts: May add to ED labs Performed By: #### L 100.0100, L503.6550, L500.4050, L503.6030, L501.5200 ####[facility] [address] [place], [address] ALK P 60 U/L Normal 45-117 [facility] Comment on above: Order Comment: Comme nts: May add to ED labs Performed By: #### L 100.0100, L503.6550, L500.4050, L503.6030, L501.5200 ####[facility] [address] [place], [address] ALT [Catalytic activity/Vol] 23 U/L Normal 16-61 [facility] Comment on above: Order Comment: Comme nts: May add to ED labs Performed By: #### L 100.0100, L503.6550, L500.4050, L503.6030, L501.5200 ####[facility] [address] [place], [address] AST [Catalytic activity/Vol] 35 U/L Normal 15-37 [facility] Comment on above: Order Comment: Comme nts: May add to ED labs Performed By: #### L 100.0100, L503.6550, L500.4050, L503.6030, L501.5200 ####[facility] [address] [place], [address] Bilirubin [Mass/Vol] 1.60 mg/dL High 0.20-1.00 [facility] Comment on above: Order Comment: Comme nts: May add to ED labs Result Comment: For patients on eltrombopag therapy, use of Dimension Burt TBIL is not recommended. Performed By: #### L 100.0100, L503.6550, L500.4050, L503.6030, L501.5200 ####[facility] [address] [place], [address] BUN/CRE 35.5 RATIO High 10-20 [facility] Comment on above: Order Comment: Comme nts: May add to ED labs Performed By: #### L 100.0100, L503.6550, L500.4050, L503.6030, L501.5200 ####[facility] [address] [place], [address] CA,Total 8.7 mg/dL Normal 8.5-10.1 [facility] Comment on above: Order Comment: Comme nts: May add to ED labs Performed By: #### L 100.0100, L503.6550, L500.4050, L503.6030, L501.5200 ####[facility] [address] [place], [address] Chloride [Moles/Vol] 107 mmol/L Normal 98-107 [facility] Comment on above: Order Comment: Comme nts: May add to ED labs Performed By: #### L 100.0100, L503.6550, L500.4050, L503.6030, L501.5200 ####[facility] [address] [place], [address] CO2 [Moles/Vol] 29.0 mmol/L Normal 21.0-32.0 [facility] Comment on above: Order Comment: Comme nts: May add to ED labs Performed By: #### L 100.0100, L503.6550, L500.4050, L503.6030, L501.5200 ####[facility] [address] [place], [address] Creatinine [Mass/Vol] 2.73 mg/dL High 0.70-1.30 [facility] Comment on above: Order Comment: Comme nts: May add to ED labs Result Comment: The validity of the calculated GFR GFRAA in patients over70 years has not been determined. Clinical correlation isessential. Performed By: #### L 100.0100, L503.6550, L500.4050, L503.6030, L501.5200 ####[facility] [address] [place], [address] ECRCL 20.51 ml/min Normal [facility] Comment on above: Order Comment: Commbrisa nts: May add to ED labs Performed By: #### L 100.0100, L503.6550, L500.4050, L503.6030, L501.5200 ####[facility] [address] [place], [address] EST GFR - AA 29 mL/min Low >60 [facility] Comment on above: Order Comment: Comme nts: May add to ED labs Result Comment: Afri can Singaporean GFR Calc Performed By: #### L 100.0100, L503.6550, L500.4050, L503.6030, L501.5200 ####[facility] [address] [place], [address] GAP 6 Normal 5-15 [facility] Comment on above: Order Comment: Comme nts: May add to ED labs Performed By: #### L 100.0100, L503.6550, L500.4050, L503.6030, L501.5200 ####[facility] [address] [place], [address] GFR/1.73 sq M.predicted among non-blacks MDRD (S/P/Bld) [Vol rate/Area] 24 mL/min/{1.73_m2} Low >60 [facility] Comment on above: Order Comment: Comme nts: May add to ED labs Result Comment: Non- GFR Calc Performed By: #### L 100.0100, L503.6550, L500.4050, L503.6030, L501.5200 ####[facility] [address] [place], [address] Globulin (S) [Mass/Vol] 3.5 g/dL Normal 2.2-4.2 [facility] Comment on above: Order Comment: Commbrisa nts: May add to ED labs Performed By: #### L 100.0100, L503.6550, L500.4050, L503.6030, L501.5200 ####[facility] [address] [place], [address] Glucose [Mass/Vol] 142 mg/dL High 74-106 [facility] Comment on above: Order Comment: Comme nts: May add to ED labs Result Comment: Fast ing Glucose result greater than or equal to 126 mg/dLsuggests DIABETES MELLITUS per A.D.A. criteria. Performed By: #### L 100.0100, L503.6550, L500.4050, L503.6030, L501.5200 ####[facility] [address] [place], [address] Potassium [Moles/Vol] 4.4 mmol/L Normal 3.5-5.1 [facility] Comment on above: Order Comment: Commbrisa nts: May add to ED labs Performed By: #### L 100.0100, L503.6550, L500.4050, L503.6030, L501.5200 ####[facility] [address] [place], [address] Sodium [Moles/Vol] 142 mmol/L Normal 136-145 [facility] Comment on above: Order Comment: Commbrisa nts: May add to ED labs Performed By: #### L 100.0100, L503.6550, L500.4050, L503.6030, L501.5200 ####[facility] [address] [place], [address] T PROT 6.4 g/dL Normal 6.4-8.2 [facility] Comment on above: Order Comment: Comme nts: May add to ED labs Performed By: #### L 100.0100, L503.6550, L500.4050, L503.6030, L501.5200 ####[facility] [address] [place], [address] Urea nitrogen [Mass/Vol] 97 mg/dL High 7-18 [facility] Comment on above: Order Comment: Comme nts: May add to ED labs Performed By: #### L 100.0100, L503.6550, L500.4050, L503.6030, L501.5200 ####[facility] [address] [place], [address] Consultation - Cardiologyon 12-07-2023 Consultation - Cardiology Normal [facility] Consultation - Nephrologyon 12-07-2023 Consultation - Nephrology Normal [facility] Echo Limited w/Contraston Echo Limited w/Contrast Normal [facility] Ferritinon 12-07-2023 Ferritin [Mass/Vol] 37 ng/mL Normal 26-388 [facility] Comment on above: Order Comment: Comme nts: May add to ED labs Performed By: #### L 100.0100, L503.6550, L500.4050, L503.6030, L501.5200 ####[facility] [address] [place], [address] Iron+Iron Binding Capacityon 12-07-2023 Iron [Mass/Vol] 208 ug/dL High 65-175 [facility] Comment on above: Order Comment: Comme nts: May add to ED labs Performed By: #### L 100.0100, L503.6550, L500.4050, L503.6030, L501.5200 ####[facility] [address] [place], [address] IRON SATURATION 78.8 High 15.0-55.0 [facility] Comment on above: Order Comment: Comme nts: May add to ED labs Performed By: #### L 100.0100, L503.6550, L500.4050, L503.6030, L501.5200 ####[facility] [address] [place], [address] TIBC 264 ug/dL Normal 250-450 [facility] Comment on above: Order Comment: Comme nts: May add to ED labs Performed By: #### L 100.0100, L503.6550, L500.4050, L503.6030, L501.5200 ####[facility] [address] [place], [address] Magnesiumon 12-07-2023 Magnesium [Mass/Vol] 1.4 mg/dL Low 1.6-2.6 [facility] Comment on above: Order Comment: Comme nts: May add to ED labs Performed By: #### L 100.0100, L503.6550, L500.4050, L503.6030, L501.5200 ####[facility] [address] [place], [address] BNP,B-Type NATRIURETIC PEPTI Nico 12-06-2023 Natriuretic peptide B (Bld) [Mass/Vol] 149.9 pg/mL High 0-100 [facility] Comment on above: Performed By: #### L 500.4050, L100.0100, L501.5425, L503.6620 ####[facility] [address] [place], [address] BRCon 12-06-2023 RC Normal [facility] Comment on above: Result Comment: [id number] ON RC TRANSFUSED 12/06/23 1648 Performed By: #### B TS, BR ####[facility] [address] [place], [address] Result Comment: [id number] AN RC TRANSFUSED 12/08/23 [id number] AN RC TRANSFUSED 12/09/23 0038 Performed By: #### B RC ####[facility] [address] [place], [address] Bedside Glucoseon 12-06-2023 FINGERSTICK GLU 271 mg/dL High 74-106 [facility] Comment on above: Result Comment: MYKE GEMENT OF PATIENT CARE PER NURSING PROTOCOL Performed By: #### L 501.080 ####[facility] [address] [place], [address] FINGERSTICK GLU 267 mg/dL High 74-106 [facility] Comment on above: Result Comment: MYKE GEMENT OF PATIENT CARE PER NURSING PROTOCOL Performed By: #### L 501.080 ####[facility] [address] [place], [address] CBC W/Diff, Automatedon 11-11 Absolute Lymph 0.62 X10 3/uL Low 0.83-4.51 [facility] Comment on above: Performed By: #### L 500.4050, L100.0100, L501.5425, L503.6620 ####[facility] [address] [place], [address] Absolute Neut 4.3 X10 3/uL Normal 2.0-7.7 [facility] Comment on above: Performed By: #### L 500.4050, L100.0100, L501.5425, L503.6620 ####[facility] [address] [place], [address] Basophils/100 WBC (Bld) 0.2 % Normal 0-1 [facility] Comment on above: Performed By: #### L 500.4050, L100.0100, L501.5425, L503.6620 ####[facility] [address] [place], [address] Eosinophils/100 WBC (Bld) 3.3 % Normal 0-5 [facility] Comment on above: Performed By: #### L 500.4050, L100.0100, L501.5425, L503.6620 ####[facility] [address] [place], [address] Erythrocyte distribution width (RBC) [Ratio] 13.4 % Normal 11.6-14.6 [facility] Comment on above: Performed By: #### L 500.4050, L100.0100, L501.5425, L503.6620 ####[facility] [address] [place], [address] Hematocrit (Bld) [Volume fraction] 21.9 % Low 40-54 [facility] Comment on above: Performed By: #### L 500.4050, L100.0100, L501.5425, L503.6620 ####[facility] [address] [place], [address] Hemoglobin (Bld) [Mass/Vol] 6.8 g/dL Low 13.0-16.5 [facility] Comment on above: Performed By: #### L 500.4050, L100.0100, L501.5425, L503.6620 ####[facility] [address] [place], [address] IG% 0.400 Normal 0.0-0.9 [facility] Comment on above: Result Comment: IG% - Immature Granulocytes (promyelocytes, myelocytes andmetamyelocytes) > 1% indicates that a LEFT SHIFT is Present. Performed By: #### L 500.4050, L100.0100, L501.5425, L503.6620 ####[facility] [address] [place], [address] Lymphocytes/100 WBC (Bld) 11.3 % Low 19-41 [facility] Comment on above: Performed By: #### L 500.4050, L100.0100, L501.5425, L503.6620 ####[facility] [address] [place], [address] MCH (RBC) [Entitic mass] 30.2 pg Normal 27.0-32.0 [facility] Comment on above: Performed By: #### L 500.4050, L100.0100, L501.5425, L503.6620 ####[facility] [address] [place], [address] MCHC (RBC) [Mass/Vol] 31.1 g/dL Low 32-36 [facility] Comment on above: Performed By: #### L 500.4050, L100.0100, L501.5425, L503.6620 ####[facility] [address] [place], [address] MCV (RBC) [Entitic vol] 97.3 fL High 80-94 [facility] Comment on above: Performed By: #### L 500.4050, L100.0100, L501.5425, L503.6620 ####[facility] [address] [place], [address] Monocytes/100 WBC (Bld) 6.4 % Normal 0-10 [facility] Comment on above: Performed By: #### L 500.4050, L100.0100, L501.5425, L503.6620 ####[facility] [address] [place], [address] Neutrophils/100 WBC (Bld) 78.4 % High 47-70 [facility] Comment on above: Performed By: #### L 500.4050, L100.0100, L501.5425, L503.6620 ####[facility] [address] [place], [address] Nucleated RBC (Bld) [#/Vol] 0 10*3/uL Normal 0-5 [facility] Comment on above: Performed By: #### L 500.4050, L100.0100, L501.5425, L503.6620 ####[facility] [address] [place], [address] Platelet mean volume (Bld) [Entitic vol] 11.9 fL Normal 6.2-12.0 [facility] Comment on above: Performed By: #### L 500.4050, L100.0100, L501.5425, L5.6620 ####[facility] [address] [place], [address] Platelets (Bld) [#/Vol] 75 10*3/uL Low 150-450 [facility] Comment on above: Performed By: #### L 500.4050, L100.0100, L501.5425, L503.6620 ####[facility] [address] [place], [address] RBC (Bld) [#/Vol] 2.25 10*6/uL Low 4.6-6.2 [facility] Comment on above: Performed By: #### L 500.4050, L100.0100, L501.5425, L503.6620 ####[facility] [address] [place], [address] RDW SD 47.7 fl High 35.1-43.9 [facility] Comment on above: Performed By: #### L 500.4050, L100.0100, L501.5425, L503.6620 ####[facility] [address] [place], [address] WBC (Bld) [#/Vol] 5.5 10*3/uL Normal 4.4-11.0 [facility] Comment on above: Performed By: #### L 500.4050, L100.0100, L501.5425, L503.6620 ####[facility] [address] [place], [address] Chest 1 View (Portable)on Chest 1 View (Portable) Normal [facility] Comprehensive Metabolic Prof ilon 12-06-2023 Albumin [Mass/Vol] 3.0 g/dL Low 3.2-5.0 [facility] Comment on above: Order Comment: 1Y Performed By: #### L 500.4050, L100.0100, L501.5425, L503.6620 ####[facility] [address] [place], [address] Albumin/Globulin [Mass ratio] 0.9 {ratio} Normal 0.9-2.4 [facility] Comment on above: Order Comment: 1Y Performed By: #### L 500.4050, L100.0100, L501.5425, L503.6620 ####[facility] [address] [place], [address] ALK P 67 U/L Normal 45-117 [facility] Comment on above: Order Comment: 1Y Performed By: #### L 500.4050, L100.0100, L501.5425, L503.6620 ####[facility] [address] [place], [address] ALT [Catalytic activity/Vol] 19 U/L Normal 16-61 [facility] Comment on above: Order Comment: 1Y Performed By: #### L 500.4050, L100.0100, L501.5425, L503.6620 ####[facility] [address] [place], [address] AST [Catalytic activity/Vol] 12 U/L Low 15-37 [facility] Comment on above: Order Comment: 1Y Performed By: #### L 500.4050, L100.0100, L501.5425, L503.6620 ####[facility] [address] [place], [address] Bilirubin [Mass/Vol] 0.40 mg/dL Normal 0.20-1.00 [facility] Comment on above: Order Comment: 1Y Result Comment: For patients on eltrombopag therapy, use of Dimension Burt TBIL is not recommended. Performed By: #### L 500.4050, L100.0100, L501.5425, L503.6620 ####[facility] [address] [place], [address] BUN/CRE 29.4 RATIO High 10-20 [facility] Comment on above: Order Comment: 1Y Performed By: #### L 500.4050, L100.0100, L501.5425, L503.6620 ####[facility] [address] [place], [address] CA,Total 8.1 mg/dL Low 8.5-10.1 [facility] Comment on above: Order Comment: 1Y Performed By: #### L 500.4050, L100.0100, L501.5425, L503.6620 ####[facility] [address] [place], [address] Chloride [Moles/Vol] 106 mmol/L Normal 98-107 [facility] Comment on above: Order Comment: 1Y Performed By: #### L 500.4050, L100.0100, L501.5425, L503.6620 ####[facility] [address] [place], [address] CO2 [Moles/Vol] 26.0 mmol/L Normal 21.0-32.0 [facility] Comment on above: Order Comment: 1Y Performed By: #### L 500.4050, L100.0100, L501.5425, L503.6620 ####[facility] [address] [place], [address] Creatinine [Mass/Vol] 3.44 mg/dL High 0.70-1.30 [facility] Comment on above: Order Comment: 1Y Result Comment: The validity of the calculated GFR GFRAA in patients over70 years has not been determined. Clinical correlation isessential. Performed By: #### L 500.4050, L100.0100, L501.5425, L503.6620 ####[facility] [address] [place], [address] ECRCL 16.67 ml/min Normal [facility] Comment on above: Order Comment: 1Y Performed By: #### L 500.4050, L100.0100, L501.5425, L503.6620 ####[facility] [address] [place], [address] EST GFR - AA 22 mL/min Low >60 [facility] Comment on above: Order Comment: 1Y Result Comment: Afri can Singaporean GFR Calc Performed By: #### L 500.4050, L100.0100, L501.5425, L503.6620 ####[facility] [address] [place], [address] GAP 10 Normal 5-15 [facility] Comment on above: Order Comment: 1Y Performed By: #### L 500.4050, L100.0100, L501.5425, L503.6620 ####[facility] [address] [place], [address] GFR/1.73 sq M.predicted among non-blacks MDRD (S/P/Bld) [Vol rate/Area] 18 mL/min/{1.73_m2} Low >60 [facility] Comment on above: Order Comment: 1Y Result Comment: Non- GFR Calc Performed By: #### L 500.4050, L100.0100, L501.5425, L503.6620 ####[facility] [address] [place], [address] Globulin (S) [Mass/Vol] 3.3 g/dL Normal 2.2-4.2 [facility] Comment on above: Order Comment: 1Y Performed By: #### L 500.4050, L100.0100, L501.5425, L503.6620 ####[facility] [address] [place], [address] Glucose [Mass/Vol] 314 mg/dL High 74-106 [facility] Comment on above: Order Comment: 1Y Result Comment: Gluc ose result greater than or equal to 200 mg/dLsuggests DIABETES MELLITUS per A.D.A. criteria. Performed By: #### L 500.4050, L100.0100, L501.5425, L503.6620 ####[facility] [address] [place], [address] Potassium [Moles/Vol] 4.0 mmol/L Normal 3.5-5.1 [facility] Comment on above: Order Comment: 1Y Performed By: #### L 500.4050, L100.0100, L501.5425, L503.6620 ####[facility] [address] [place], [address] Sodium [Moles/Vol] 142 mmol/L Normal 136-145 [facility] Comment on above: Order Comment: 1Y Performed By: #### L 500.4050, L100.0100, L501.5425, L503.6620 ####[facility] [address] [place], [address] T PROT 6.3 g/dL Low 6.4-8.2 [facility] Comment on above: Order Comment: 1Y Performed By: #### L 500.4050, L100.0100, L501.5425, L503.6620 ####[facility] [address] [place], [address] Urea nitrogen [Mass/Vol] 101 mg/dL Invalid Interpretation Code 7-18 [facility] Comment on above: Order Comment: 1Y Result Comment: Crit ical Result(s) Called at: 14:23:51 12/06/2023 by:Didier Xiao to [facility]. Results read back by same. Performed By: #### L 500.4050, L100.0100, L501.5425, L503.6620 ####[facility] [address] [place], [address] Emergency Department Summary on 12-06-2023 Emergency Department Summary Normal [facility] H AND P Exam - Hospitaliston 12-06-2023 H&P Exam - Hospitalist Normal [facility] Hemoglobinon 12-06-2023 Hemoglobin (Bld) [Mass/Vol] 7.8 g/dL Low 13.0-16.5 [facility] Comment on above: Performed By: #### L 100.1300 ####[facility] [address] [place], [address] Kidney and Bladderon 024 Kidney and Bladder Normal [facility] L501.4020on 12-06-2023 TROPONIN-I HS 5240 pg/mL Invalid Interpretation Code 3.0-78.0 [facility] Comment on above: Order Comment: 'TROP ' Serial specimen #1, #2 or #3: 3 Result Comment: Plea se Note: New Test Units and Gender Specific Reference Ranges. For more information see Policy Stat Procedure Burt High Sensitivity Troponin (TNIH) and attachments. Performed By: #### L 501.4020 ####[facility] [address] [place], [address] TROPONIN-I HS 2618 pg/mL Invalid Interpretation Code 3.0-78.0 [facility] Comment on above: Result Comment: Crit ical Result(s) Called at: 19:14:36 12/06/2023 by: SARITHA. Results read back by Adam Please Note: New Test Units and Gender Specific Reference Ranges. For more information see Policy Stat Procedure Burt High Sensitivity Troponin (TNIH) and attachments. Performed By: #### L 501.4020 ####[facility] [address] [place], [address] L501.5425on 12-06-2023 TROPONIN-I HS 146 pg/mL Invalid Interpretation Code 3.0-78.0 [facility] Comment on above: Order Comment: 1Y Result Comment: Crit ical Result(s) Called at: 14:23:51 12/06/2023 by:Didier Xiao to caio. Results read back by abdelrahman. Please Note: New Test Units and Gender Specific Reference Ranges. For more information see Policy Stat Procedure Burt High Sensitivity Troponin (TNIH) and attachments. Performed By: #### L 500.4050, L100.0100, L501.5425, L503.6620 ####[facility] [address] [place], [address] M100.678on 12-06-2023 M100.678 Pending SARS-CoV-2 (COVID 19) Negative INFLUENZA A Negative INFLUENZA B Negative RSV PCR Negative Normal [facility] Comment on above: Performed By: #### M 100.678 ####[facility] [address] [place], [address] Type AND Screenon 12-06-2023 Ab SCREEN GEL Negative Normal [facility] Comment on above: Order Comment: CMV N EG? NNumber of units to transfuse: 1Is pt's Hgb is = to 7.0 mg/dl or Hct </= 21%? YReason for Ordering Blood: ChronicIs there symptomatic anemia? Shin the blood/blood products to be transfused? YIs the patient having/had surgery? NWdesean Elaine Performed By: #### B TS, BRC ####[facility] [address] [place], [address] ABO and Rh group Nom (Bld) Blood group A Rh(D) negative Normal [facility] Comment on above: Order Comment: CMV N EG? NNumber of units to transfuse: 1Is pt's Hgb is = to 7.0 mg/dl or Hct </= 21%? YReason for Ordering Blood: ChronicIs there symptomatic anemia? Shin the blood/blood products to be transfused? YIs the patient having/had surgery? Ashlee Elaine Performed By: #### B TS, BRC ####[facility] [address] [place], [address] Urea Nitrogen, Urineon 12-05 URINE UREA 625 mg/dL Normal NO RANGE EST. [facility] Comment on above: Performed By: #### L 500.9400, L502.0715 ####[facility] [address] [place], [address] Urine Electrolytes- Randomon 12-06-2023 Sodium (U) [Moles/Vol] 42 mmol/L Normal Not Establ. [facility] Comment on above: Performed By: #### L 500.9400, L502.0715 ####[facility] [address] [place], [address] UR CL 15 mmol/L Normal Not Establ. [facility] Comment on above: Performed By: #### L 500.9400, L502.0715 ####[facility] [address] [place], [address] UR K 24.0 mmol/L Normal Not Establ. [facility] Comment on above: Performed By: #### L 500.9400, L502.0715 ####[facility] [address] [place], [address] Venous Blood Gason 4 Blood Gas Type DAYANA Normal [facility] Comment on above: Performed By: #### L 9000.0810 ####[facility] [address] [place], [address] CO2 [Moles/Vol] 27 mmol/L Normal 23-33 [facility] Comment on above: Performed By: #### L 9000.0810 ####[facility] [address] [place], [address] FI02 3.0 Normal [facility] Comment on above: Performed By: #### L 9000.0810 ####[facility] [address] [place], [address] HCO3 (Bld) [Moles/Vol] 25 mmol/L Normal 22-26 [facility] Comment on above: Performed By: #### L 9000.0810 ####[facility] [address] [place], [address] O2 Delivery Dev Cannula Normal [facility] Comment on above: Performed By: #### L 9000.0810 ####[facility] [address] [place], [place], [address] SITE Not entered Normal [facility] Comment on above: Performed By: #### L 9000.0810 ####[facility] [address] [place], [address] VBG BE 0 mmol/L Normal -1.0-3.5 [facility] Comment on above: Performed By: #### L 9000.0810 ####[facility] [address] [place], [address] VBG pCO2 42.6 mmHg Normal 41-51 [facility] Comment on above: Performed By: #### L 9000.0810 ####[facility] [address] [place], [address] VBG pH 7.38 Normal 7.32-7.42 [facility] Comment on above: Performed By: #### L 9000.0810 ####[facility] [address] [place], [address] VBG PO2 53 mmHg High 25-40 [facility] Comment on above: Performed By: #### L 9000.0810 ####[facility] [address] [place], [address] VBG SO2 87 High 50-70 [facility] Comment on above: Performed By: #### L 9000.0810 ####[facility] [address] [place], [address] Basic Metabolic Profile (BMP )on 12-05-2023 BUN/CRE 31.3 RATIO High 10-20 [facility] Comment on above: Order Comment: ORDER S INTERNALLY WERE ALREADY DONE Performed By: #### L 500.2500 ####[facility] [address] [place], [address] CA,Total 8.3 mg/dL Low 8.5-10.1 [facility] Comment on above: Order Comment: ORDER S INTERNALLY WERE ALREADY DONE Performed By: #### L 500.2500 ####[facility] [address] [place], [address] Chloride [Moles/Vol] 104 mmol/L Normal 98-107 [facility] Comment on above: Order Comment: ORDER S INTERNALLY WERE ALREADY DONE Performed By: #### L 500.2500 ####[facility] [address] [place], [address] CO2 [Moles/Vol] 30.0 mmol/L Normal 21.0-32.0 [facility] Comment on above: Order Comment: ORDER S INTERNALLY WERE ALREADY DONE Performed By: #### L 500.2500 ####[facility] [address] [place], [address] Creatinine [Mass/Vol] 3.23 mg/dL High 0.70-1.30 [facility] Comment on above: Order Comment: ORDER S INTERNALLY WERE ALREADY DONE Result Comment: The validity of the calculated GFR GFRAA in patients over70 years has not been determined. Clinical correlation isessential. Performed By: #### L 500.2500 ####[facility] [address] [place], [address] EST GFR - AA 24 mL/min Low >60 [facility] Comment on above: Order Comment: ORDER S INTERNALLY WERE ALREADY DONE Result Comment: Afri can Singaporean GFR Calc Performed By: #### L 500.2500 ####[facility] [address] [place], [address] GAP 7 Normal 5-15 [facility] Comment on above: Order Comment: ORDER S INTERNALLY WERE ALREADY DONE Performed By: #### L 500.2500 ####[facility] [address] [place], [address] GFR/1.73 sq M.predicted among non-blacks MDRD (S/P/Bld) [Vol rate/Area] 20 mL/min/{1.73_m2} Low >60 [facility] Comment on above: Order Comment: ORDER S INTERNALLY WERE ALREADY DONE Result Comment: Non- GFR Calc Performed By: #### L 500.2500 ####[facility] [address] [place], [address] Glucose [Mass/Vol] 151 mg/dL High 74-106 [facility] Comment on above: Order Comment: ORDER S INTERNALLY WERE ALREADY DONE Result Comment: Fast ing Glucose result greater than or equal to 126 mg/dLsuggests DIABETES MELLITUS per A.D.A. criteria. Performed By: #### L 500.2500 ####[facility] [address] [place], [address] Potassium [Moles/Vol] 4.0 mmol/L Normal 3.5-5.1 [facility] Comment on above: Order Comment: ORDER S INTERNALLY WERE ALREADY DONE Performed By: #### L 500.2500 ####[facility] [address] [place], [address] Sodium [Moles/Vol] 141 mmol/L Normal 136-145 [facility] Comment on above: Order Comment: ORDER S INTERNALLY WERE ALREADY DONE Performed By: #### L 500.2500 ####[facility] [address], [address] Urea nitrogen [Mass/Vol] 101 mg/dL Invalid Interpretation Code 7-18 [facility] Comment on above: Order Comment: ORDER S INTERNALLY WERE ALREADY DONE Result Comment: Crit ical Result(s) Called at: 14:07:14 12/05/2023 by: JEANETTE TO ANNETTA GAYLE. Results read back by same. Performed By: #### L 500.2500 ####[facility] [address] [place], [address] Abdomen/Pelvis W IV Cont ONL Yon 12-02-2023 Abdomen/Pelvis W IV Cont ONLY Normal [facility] Basic Metabolic Profile (BMP )on 12-02-2023 BUN/CRE 35.8 RATIO High 10-20 [facility] Comment on above: Performed By: #### L 500.2500, L100.0100 ####[facility] [address] [place], [address] CA,Total 8.8 mg/dL Normal 8.5-10.1 [facility] Comment on above: Performed By: #### L 500.2500, L100.0100 ####[facility] [address] [place], [address] Chloride [Moles/Vol] 104 mmol/L Normal 98-107 [facility] Comment on above: Performed By: #### L 500.2500, L100.0100 ####[facility] [address] [place], [address] CO2 [Moles/Vol] 30.0 mmol/L Normal 21.0-32.0 [facility] Comment on above: Performed By: #### L 500.2500, L100.0100 ####[facility] [address] [place], [address] Creatinine [Mass/Vol] 2.43 mg/dL High 0.70-1.30 [facility] Comment on above: Result Comment: The validity of the calculated GFR GFRAA in patients over70 years has not been determined. Clinical correlation isessential. Performed By: #### L 500.2500, L100.0100 ####[facility] [address] [place], [address] ECRCL 22.97 ml/min Normal [facility] Comment on above: Performed By: #### L 500.2500, L100.0100 ####[facility] [address] [place], [address] EST GFR - AA 33 mL/min Low >60 [facility] Comment on above: Result Comment: Afri can Singaporean GFR Calc Performed By: #### L 500.2500, L100.0100 ####[facility] [address] [place], [address] GAP 6 Normal 5-15 [facility] Comment on above: Performed By: #### L 500.2500, L100.0100 ####[facility] [address] [place], [address] GFR/1.73 sq M.predicted among non-blacks MDRD (S/P/Bld) [Vol rate/Area] 27 mL/min/{1.73_m2} Low >60 [facility] Comment on above: Result Comment: Non- GFR Calc Performed By: #### L 500.2500, L100.0100 ####[facility] [address] [place], [address] Glucose [Mass/Vol] 324 mg/dL High 74-106 [facility] Comment on above: Result Comment: Gluc ose result greater than or equal to 200 mg/dLsuggests DIABETES MELLITUS per A.D.A. criteria. Performed By: #### L 500.2500, L100.0100 ####[facility] [address] [place], [address] Potassium [Moles/Vol] 4.7 mmol/L Normal 3.5-5.1 [facility] Comment on above: Performed By: #### L 500.2500, L100.0100 ####[facility] [address], [address] Sodium [Moles/Vol] 140 mmol/L Normal 136-145 [facility] Comment on above: Performed By: #### L 500.2500, L100.0100 ####[facility] [address], [address] Urea nitrogen [Mass/Vol] 87 mg/dL High 7-18 [facility] Comment on above: Performed By: #### L 500.2500, L100.0100 ####[facility] [address] [place], [address] CBC W/Diff, Automatedon 11-11 Absolute Lymph 0.78 X10 3/uL Low 0.83-4.51 [facility] Comment on above: Performed By: #### L 500.2500, L100.0100 ####[facility] [address] [place], [address] Absolute Neut 6.5 X10 3/uL Normal 2.0-7.7 [facility] Comment on above: Performed By: #### L 500.2500, L100.0100 ####[facility] [address] [place], [address] Basophils/100 WBC (Bld) 0.1 % Normal 0-1 [facility] Comment on above: Performed By: #### L 500.2500, L100.0100 ####[facility] [address] [place], [address] Eosinophils/100 WBC (Bld) 2.7 % Normal 0-5 [facility] Comment on above: Performed By: #### L 500.2500, L100.0100 ####[facility] [address] [place], [address] Erythrocyte distribution width (RBC) [Ratio] 13.3 % Normal 11.6-14.6 [facility] Comment on above: Performed By: #### L 500.2500, L100.0100 ####[facility] [address] [place], [address] Hematocrit (Bld) [Volume fraction] 23.9 % Low 40-54 [facility] Comment on above: Performed By: #### L 500.2500, L100.0100 ####[facility] [address] [place], [address] Hemoglobin (Bld) [Mass/Vol] 7.7 g/dL Low 13.0-16.5 [facility] Comment on above: Performed By: #### L 500.2500, L100.0100 ####[facility] [address] [place], [address] IG% 0.300 Normal 0.0-0.9 [facility] Comment on above: Result Comment: IG% - Immature Granulocytes (promyelocytes, myelocytes andmetamyelocytes) > 1% indicates that a LEFT SHIFT is Present. Performed By: #### L 500.2500, L100.0100 ####[facility] [address] [place], [address] Lymphocytes/100 WBC (Bld) 9.9 % Low 19-41 [facility] Comment on above: Performed By: #### L 500.2500, L100.0100 ####[facility] [address] [place], [address] MCH (RBC) [Entitic mass] 30.7 pg Normal 27.0-32.0 [facility] Comment on above: Performed By: #### L 500.2500, L100.0100 ####[facility] [address] [place], [address] MCHC (RBC) [Mass/Vol] 32.2 g/dL Normal 32-36 [facility] Comment on above: Performed By: #### L 500.2500, L100.0100 ####[facility] [address] [place], [address] MCV (RBC) [Entitic vol] 95.2 fL High 80-94 [facility] Comment on above: Performed By: #### L 500.2500, L100.0100 ####[facility] [address], [address] Monocytes/100 WBC (Bld) 5.3 % Normal 0-10 [facility] Comment on above: Performed By: #### L 500.2500, L100.0100 ####[facility] [address] [place], [address] Neutrophils/100 WBC (Bld) 81.7 % High 47-70 [facility] Comment on above: Performed By: #### L 500.2500, L100.0100 ####[facility] [address] [place], [address] Nucleated RBC (Bld) [#/Vol] 0 10*3/uL Normal 0-5 [facility] Comment on above: Performed By: #### L 500.2500, L100.0100 ####[facility] [address] [place], [address] Platelet mean volume (Bld) [Entitic vol] 11.1 fL Normal 6.2-12.0 [facility] Comment on above: Performed By: #### L 500.2500, L100.0100 ####[facility] [address] [place], [address] Platelets (Bld) [#/Vol] 85 10*3/uL Low 150-450 [facility] Comment on above: Performed By: #### L 500.2500, L100.0100 ####[facility] [address] [place], [address] RBC (Bld) [#/Vol] 2.51 10*6/uL Low 4.6-6.2 [facility] Comment on above: Performed By: #### L 500.2500, L100.0100 ####[facility] [address] [place], [address] RDW SD 46.6 fl High 35.1-43.9 [facility] Comment on above: Performed By: #### L 500.2500, L100.0100 ####[facility] [address] [place], [address] WBC (Bld) [#/Vol] 7.9 10*3/uL Normal 4.4-11.0 [facility] Comment on above: Performed By: #### L 500.2500, L100.0100 ####[facility] [address] [place], [address] Emergency Department Summary on 12-02-2023 Emergency Department Summary Normal [facility] Urinalysis, Completeon 12-01 BACTERIA 0 SEEN Normal None Seen [facility] Comment on above: Order Comment: YUKI CTOR TO SPECIFY Performed By: #### L 400.0001 ####[facility] [address] [place], [address] EPI,SQUAMOUS 0 SEEN Normal 0-5 [facility] Comment on above: Order Comment: COLLE CTOR TO SPECIFY Performed By: #### L 400.0001 ####[facility] [address] [place], [address] Mucus Ql (Urine sed) 0 SEEN Normal [facility] Comment on above: Order Comment: COLLE CTOR TO SPECIFY Performed By: #### L 400.0001 ####[facility] [address] [place], [address] RBC 0 SEEN Normal 0-5 [facility] Comment on above: Order Comment: COLLE CTOR TO SPECIFY Performed By: #### L 400.0001 ####[facility] [address] [place], [address] WBC 0 SEEN Normal 0-5 [facility] Comment on above: Order Comment: COLLE CTOR TO SPECIFY Performed By: #### L 400.0001 ####[facility] [address] [place], [address] Basic Metabolic Profile (BMP )on 11-23-2023 BUN/CRE 40.1 RATIO High 10-20 [facility] Comment on above: Performed By: #### L 500.2500, L100.0100 ####[facility] [address] [place], [address] CA,Total 8.7 mg/dL Normal 8.5-10.1 [facility] Comment on above: Performed By: #### L 500.2500, L100.0100 ####[facility] [address] [place], [address] Chloride [Moles/Vol] 105 mmol/L Normal 98-107 [facility] Comment on above: Performed By: #### L 500.2500, L100.0100 ####[facility] [address] [place], [address] CO2 [Moles/Vol] 23.0 mmol/L Normal 21.0-32.0 [facility] Comment on above: Performed By: #### L 500.2500, L100.0100 ####[facility] [address] [place], [address] Creatinine [Mass/Vol] 2.84 mg/dL High 0.70-1.30 [facility] Comment on above: Result Comment: The validity of the calculated GFR GFRAA in patients over70 years has not been determined. Clinical correlation isessential. Performed By: #### L 500.2500, L100.0100 ####[facility] [address] [place], [address] EST GFR - AA 27 mL/min Low >60 [facility] Comment on above: Result Comment: Afri can Singaporean GFR Calc Performed By: #### L 500.2500, L100.0100 ####[facility] [address] [place], [address] GAP 11 Normal 5-15 [facility] Comment on above: Performed By: #### L 500.2500, L100.0100 ####[facility] [address] [place], [address] GFR/1.73 sq M.predicted among non-blacks MDRD (S/P/Bld) [Vol rate/Area] 23 mL/min/{1.73_m2} Low >60 [facility] Comment on above: Result Comment: Non- GFR Calc Performed By: #### L 500.2500, L100.0100 ####[facility] [address] [place], [address] Glucose [Mass/Vol] 457 mg/dL Invalid Interpretation Code 74-106 [facility] Comment on above: Result Comment: Crit ical Result(s) Called at: 13:43:59 11/23/2023 by: Jeremy Clark. Results read back by same.Glucose result greater than or equal to 200 mg/dLsuggests DIABETES MELLITUS per A.D.A. criteria. Performed By: #### L 500.2500, L100.0100 ####[facility] [address] [place], [address] Potassium [Moles/Vol] 4.7 mmol/L Normal 3.5-5.1 [facility] Comment on above: Performed By: #### L 500.2500, L100.0100 ####[facility] [address] [place], [address] Sodium [Moles/Vol] 139 mmol/L Normal 136-145 [facility] Comment on above: Performed By: #### L 500.2500, L100.0100 ####[facility] [address] [place], [address] Urea nitrogen [Mass/Vol] 114 mg/dL Invalid Interpretation Code 7-18 [facility] Comment on above: Result Comment: Crit ical Result(s) Called at: 13:43:59 11/23/2023 by: Jeremy to Ana M Clark. Results read back by same. Performed By: #### L 500.2500, L100.0100 ####[facility] [address] [place], [address] CBC W/Diff, Automatedon 09-03 14-2023 Absolute Lymph 0.64 X10 3/uL Low 0.83-4.51 [facility] Comment on above: Performed By: #### L 500.2500, L100.0100 ####[facility] [address] [place], [address] Absolute Neut 7.2 X10 3/uL Normal 2.0-7.7 [facility] Comment on above: Performed By: #### L 500.2500, L100.0100 ####[facility] [address] [place], [address] Basophils/100 WBC (Bld) 0.1 % Normal 0-1 [facility] Comment on above: Performed By: #### L 500.2500, L100.0100 ####[facility] [address] [place], [address] Eosinophils/100 WBC (Bld) 0.5 % Normal 0-5 [facility] Comment on above: Performed By: #### L 500.2500, L100.0100 ####[facility] [address] [place], [address] Erythrocyte distribution width (RBC) [Ratio] 14.7 % High 11.6-14.6 [facility] Comment on above: Performed By: #### L 500.2500, L100.0100 ####[facility] [address] [place], [address] Hematocrit (Bld) [Volume fraction] 27.3 % Low 40-54 [facility] Comment on above: Performed By: #### L 500.2500, L100.0100 ####[facility] [address] [place], [address] Hemoglobin (Bld) [Mass/Vol] 8.4 g/dL Low 13.0-16.5 [facility] Comment on above: Performed By: #### L 500.2500, L100.0100 ####[facility] [address] [place], [address] IG% 0.900 Normal 0.0-0.9 [facility] Comment on above: Result Comment: IG% - Immature Granulocytes (promyelocytes, myelocytes andmetamyelocytes) > 1% indicates that a LEFT SHIFT is Present. Performed By: #### L 500.2500, L100.0100 ####[facility] [address] [place], [address] Lymphocytes/100 WBC (Bld) 7.8 % Low 19-41 [facility] Comment on above: Performed By: #### L 500.2500, L100.0100 ####[facility] [address] [place], [address] MCH (RBC) [Entitic mass] 29.8 pg Normal 27.0-32.0 [facility] Comment on above: Performed By: #### L 500.2500, L100.0100 ####[facility] [address] [place], [address] MCHC (RBC) [Mass/Vol] 30.8 g/dL Low 32-36 [facility] Comment on above: Performed By: #### L 500.2500, L100.0100 ####[facility] [address] [place], [address] MCV (RBC) [Entitic vol] 96.8 fL High 80-94 [facility] Comment on above: Performed By: #### L 500.2500, L100.0100 ####[facility] [address] [place], [address] Monocytes/100 WBC (Bld) 3.1 % Normal 0-10 [facility] Comment on above: Performed By: #### L 500.2500, L100.0100 ####[facility] [address] [place], [address] Neutrophils/100 WBC (Bld) 87.6 % High 47-70 [facility] Comment on above: Performed By: #### L 500.2500, L100.0100 ####[facility] [address] [place], [address] Nucleated RBC (Bld) [#/Vol] 0 10*3/uL Normal 0-5 [facility] Comment on above: Performed By: #### L 500.2500, L100.0100 ####[facility] [address] [place], [address] Platelet mean volume (Bld) [Entitic vol] 11.8 fL Normal 6.2-12.0 [facility] Comment on above: Performed By: #### L 500.2500, L100.0100 ####[facility] [address] [place], [address] Platelets (Bld) [#/Vol] 117 10*3/uL Low 150-450 [facility] Comment on above: Performed By: #### L 500.2500, L100.0100 ####[facility] [address] [place], [address] RBC (Bld) [#/Vol] 2.82 10*6/uL Low 4.6-6.2 [facility] Comment on above: Performed By: #### L 500.2500, L100.0100 ####[facility] [address] [place], [address] RDW SD 52.2 fl High 35.1-43.9 [facility] Comment on above: Performed By: #### L 500.2500, L100.0100 ####[facility] [address] [place], [address] WBC (Bld) [#/Vol] 8.2 10*3/uL Normal 4.4-11.0 [facility] Comment on above: Performed By: #### L 500.2500, L100.0100 ####[facility] [address] [place], [address] BNP,B-Type NATRIURETIC PEPTI Nico 11-20-2023 Natriuretic peptide B (Bld) [Mass/Vol] 186.8 pg/mL High 0-100 [facility] Comment on above: Performed By: #### L 503.6620 ####[facility] [address] [place], [address] Basic Metabolic Profile (BMP )on 11-20-2023 BUN/CRE 50.2 RATIO High 10-20 [facility] Comment on above: Performed By: #### L 100.0100, L500.2500 ####[facility] [address] [place], [address] CA,Total 9.6 mg/dL Normal 8.5-10.1 [facility] Comment on above: Performed By: #### L 100.0100, L500.2500 ####[facility] [address] [place], [address] Chloride [Moles/Vol] 107 mmol/L Normal 98-107 [facility] Comment on above: Performed By: #### L 100.0100, L500.2500 ####[facility] [address] [place], [address] CO2 [Moles/Vol] 26.0 mmol/L Normal 21.0-32.0 [facility] Comment on above: Performed By: #### L 100.0100, L500.2500 ####[facility] [address] [place], [address] Creatinine [Mass/Vol] 2.09 mg/dL High 0.70-1.30 [facility] Comment on above: Result Comment: The validity of the calculated GFR GFRAA in patients over70 years has not been determined. Clinical correlation isessential. Performed By: #### L 100.0100, L500.2500 ####[facility] [address] [place], [address] ECRCL 26.58 ml/min Normal [facility] Comment on above: Performed By: #### L 100.0100, L500.2500 ####[facility] [address] [place], [address] EST GFR - AA 39 mL/min Low >60 [facility] Comment on above: Result Comment: Afri can Singaporean GFR Calc Performed By: #### L 100.0100, L500.2500 ####[facility] [address] [place], [address] GAP 7 Normal 5-15 [facility] Comment on above: Performed By: #### L 100.0100, L500.2500 ####[facility] [address] [place], [address] GFR/1.73 sq M.predicted among non-blacks MDRD (S/P/Bld) [Vol rate/Area] 32 mL/min/{1.73_m2} Low >60 [facility] Comment on above: Result Comment: Non- GFR Calc Performed By: #### L 100.0100, L500.2500 ####[facility] [address] [place], [address] Glucose [Mass/Vol] 212 mg/dL High 74-106 [facility] Comment on above: Result Comment: Gluc ose result greater than or equal to 200 mg/dLsuggests DIABETES MELLITUS per A.D.A. criteria. Performed By: #### L 100.0100, L500.2500 ####[facility] [address] [place], [address] Potassium [Moles/Vol] 4.7 mmol/L Normal 3.5-5.1 [facility] Comment on above: Performed By: #### L 100.0100, L500.2500 ####[facility] [address] [place], [address] Sodium [Moles/Vol] 140 mmol/L Normal 136-145 [facility] Comment on above: Performed By: #### L 100.0100, L500.2500 ####[facility] [address] [place], [address] Urea nitrogen [Mass/Vol] 105 mg/dL Invalid Interpretation Code 7-18 [facility] Comment on above: Result Comment: Crit ical Result(s) Called at: 07:44:50 11/20/2023 by: TUCKER Wilson. Results read back by same. Performed By: #### L 100.0100, L500.2500 ####[facility] [address] [place], [address] Bedside Glucoseon 11-20-2023 FINGERSTICK GLU 295 mg/dL High 74-106 [facility] Comment on above: Result Comment: MYKE GEMENT OF PATIENT CARE PER NURSING PROTOCOL Performed By: #### L 501.080 ####[facility] [address] [place], [address] FINGERSTICK GLU 285 mg/dL High 74-106 [facility] Comment on above: Result Comment: MYKE GEMENT OF PATIENT CARE PER NURSING PROTOCOL Performed By: #### L 501.080 ####[facility] [address] [place], [address] FINGERSTICK GLU 194 mg/dL High 74-106 [facility] Comment on above: Result Comment: MYKE GEMENT OF PATIENT CARE PER NURSING PROTOCOL Performed By: #### L 501.080 ####[facility] [address] [place], [address] CBC W/Diff, Automatedon 09-1 0-4 Absolute Lymph 0.66 X10 3/uL Low 0.83-4.51 [facility] Comment on above: Performed By: #### L 100.0100, L500.2500 ####[facility] [address] [place], [address] Absolute Neut 9.9 X10 3/uL High 2.0-7.7 [facility] Comment on above: Performed By: #### L 100.0100, L500.2500 ####[facility] [address] [place], [address] Basophils/100 WBC (Bld) 0.0 % Normal 0-1 [facility] Comment on above: Performed By: #### L 100.0100, L500.2500 ####[facility] [address] [place], [address] Eosinophils/100 WBC (Bld) 0.0 % Normal 0-5 [facility] Comment on above: Performed By: #### L 100.0100, L500.2500 ####[facility] [address] [place], [address] Erythrocyte distribution width (RBC) [Ratio] 14.8 % High 11.6-14.6 [facility] Comment on above: Performed By: #### L 100.0100, L500.2500 ####[facility] [address] [place], [address] Hematocrit (Bld) [Volume fraction] 24.8 % Low 40-54 [facility] Comment on above: Performed By: #### L 100.0100, L500.2500 ####[facility] [address] [place], [address] Hemoglobin (Bld) [Mass/Vol] 8.1 g/dL Low 13.0-16.5 [facility] Comment on above: Performed By: #### L 100.0100, L500.2500 ####[facility] [address] [place], [address] IG% 0.700 Normal 0.0-0.9 [facility] Comment on above: Result Comment: IG% - Immature Granulocytes (promyelocytes, myelocytes andmetamyelocytes) > 1% indicates that a LEFT SHIFT is Present. Performed By: #### L 100.0100, L500.2500 ####[facility] [address] [place], [address] Lymphocytes/100 WBC (Bld) 6.1 % Low 19-41 [facility] Comment on above: Performed By: #### L 100.0100, L500.2500 ####[facility] [address] [place], [address] MCH (RBC) [Entitic mass] 31.2 pg Normal 27.0-32.0 [facility] Comment on above: Performed By: #### L 100.0100, L500.2500 ####[facility] [address] [place], [address] MCHC (RBC) [Mass/Vol] 32.7 g/dL Normal 32-36 [facility] Comment on above: Performed By: #### L 100.0100, L500.2500 ####[facility] [address] [place], [address] MCV (RBC) [Entitic vol] 95.4 fL High 80-94 [facility] Comment on above: Performed By: #### L 100.0100, L500.2500 ####[facility] [address] [place], [address] Monocytes/100 WBC (Bld) 2.5 % Normal 0-10 [facility] Comment on above: Performed By: #### L 100.0100, L500.2500 ####[facility] [address] [place], [address] Neutrophils/100 WBC (Bld) 90.7 % High 47-70 [facility] Comment on above: Performed By: #### L 100.0100, L500.2500 ####[facility] [address] [place], [address] Nucleated RBC (Bld) [#/Vol] 0 10*3/uL Normal 0-5 [facility] Comment on above: Performed By: #### L 100.0100, L500.2500 ####[facility] [address] [place], [address] Platelet mean volume (Bld) [Entitic vol] 11.0 fL Normal 6.2-12.0 [facility] Comment on above: Performed By: #### L 100.0100, L500.2500 ####[facility] [address] [place], [address] Platelets (Bld) [#/Vol] 107 10*3/uL Low 150-450 [facility] Comment on above: Performed By: #### L 100.0100, L500.2500 ####[facility] [address] [place], [address] RBC (Bld) [#/Vol] 2.60 10*6/uL Low 4.6-6.2 [facility] Comment on above: Performed By: #### L 100.0100, L500.2500 ####[facility] [address] [place], [address] RDW SD 51.3 fl High 35.1-43.9 [facility] Comment on above: Performed By: #### L 100.0100, L500.2500 ####[facility] [address] [place], [address] WBC (Bld) [#/Vol] 10.9 10*3/uL Normal 4.4-11.0 [facility] Comment on above: Performed By: #### L 100.0100, L500.2500 ####[facility] [address] [place], [address] Chest 1 View (Portable)on Chest 1 View (Portable) Normal [facility] Consultation - Nephrologyon 11-20-2023 Consultation - Nephrology Normal [facility] Discharge Instructionon 11-10 Discharge Instruction Normal [facility] Liver Profileon 11-20-2023 Albumin [Mass/Vol] 3.3 g/dL Normal 3.2-5.0 [facility] Comment on above: Order Comment: Add-o n to morning labs if possible Performed By: #### L 500.3400 ####[facility] [address] [place], [address] ALK P 71 U/L Normal 45-117 [facility] Comment on above: Order Comment: Add-o n to morning labs if possible Performed By: #### L 500.3400 ####[facility] [address] [place], [address] ALT [Catalytic activity/Vol] 17 U/L Normal 16-61 [facility] Comment on above: Order Comment: Add-o n to morning labs if possible Performed By: #### L 500.3400 ####[facility] [address] [place], [address] AST [Catalytic activity/Vol] 9 U/L Low 15-37 [facility] Comment on above: Order Comment: Add-o n to morning labs if possible Performed By: #### L 500.3400 ####[facility] [address] [place], [address] Bilirubin [Mass/Vol] 0.40 mg/dL Normal 0.20-1.00 [facility] Comment on above: Order Comment: Add-o n to morning labs if possible Result Comment: For patients on eltrombopag therapy, use of Dimension Burt TBIL is not recommended. Performed By: #### L 500.3400 ####[facility] [address] [place], [address] Bilirubin.direct [Mass/Vol] 0.10 mg/dL Normal 0.00-0.30 [facility] Comment on above: Order Comment: Add-o n to morning labs if possible Performed By: #### L 500.3400 ####[facility] [address] [place], [address] Globulin (S) [Mass/Vol] 3.0 g/dL Normal 2.2-4.2 [facility] Comment on above: Order Comment: Add-o n to morning labs if possible Performed By: #### L 500.3400 ####[facility] [address] [place], [address] T PROT 6.3 g/dL Low 6.4-8.2 [facility] Comment on above: Order Comment: Add-o n to morning labs if possible Performed By: #### L 500.3400 ####[facility] [address] [place], [address] Protein+Creatinine Ratio,Uri neon 11-20-2023 PROT:CRE RATIO 683 mg/g CRE High 0-200 [facility] Comment on above: Performed By: #### L 501.0900 ####[facility] [address] [place], [address] Protein (U) [Mass/Vol] 35.3 mg/dL High <11.9 [facility] Comment on above: Performed By: #### L 501.0900 ####[facility] [address] [place], [address] UR CREAT 51.70 mg/dL Normal NO RANGE EST. [facility] Comment on above: Performed By: #### L 501.0900 ####[facility] [address] [place], [address] Venous Blood Gason 4 Blood Gas Type DAYANA Normal [facility] Comment on above: Performed By: #### L 9000.0810 ####[facility] [address] [place], [address] CO2 [Moles/Vol] 24 mmol/L Normal 23-33 [facility] Comment on above: Performed By: #### L 9000.0810 ####[facility] [address] [place], [address] FI02 3.0 Normal [facility] Comment on above: Performed By: #### L 9000.0810 ####[facility] [address] [place], [address] HCO3 (Bld) [Moles/Vol] 23 mmol/L Normal 22-26 [facility] Comment on above: Performed By: #### L 9000.0810 ####[facility] [address] [place], [address] O2 Delivery Dev Cannula Normal [facility] Comment on above: Performed By: #### L 9000.0810 ####[facility] [address] [place], [address] SITE Not entered Normal [facility] Comment on above: Performed By: #### L 9000.0810 ####[facility] [address] [place], [address] VBG BE -3 mmol/L Low -1.0-3.5 [facility] Comment on above: Performed By: #### L 9000.0810 ####[facility] [address] [place], [address] VBG pCO2 42.2 mmHg Normal 41-51 [facility] Comment on above: Performed By: #### L 9000.0810 ####[facility] [address] [place], [address] VBG pH 7.34 Normal 7.32-7.42 [facility] Comment on above: Performed By: #### L 9000.0810 ####[facility] [address] [place], [address] VBG PO2 55 mmHg High 25-40 [facility] Comment on above: Performed By: #### L 9000.0810 ####[facility] [address] [place], [address] VBG SO2 86 High 50-70 [facility] Comment on above: Performed By: #### L 9000.0810 ####[facility] [address] [place], [address] Basic Metabolic Profile (BMP )on 11-19-2023 BUN/CRE 42.7 RATIO High 10-20 [facility] Comment on above: Performed By: #### L 500.2500, L100.0100 ####[facility] [address] [place], [address] CA,Total 9.2 mg/dL Normal 8.5-10.1 [facility] Comment on above: Performed By: #### L 500.2500, L100.0100 ####[facility] [address] [place], [address] Chloride [Moles/Vol] 105 mmol/L Normal 98-107 [facility] Comment on above: Performed By: #### L 500.2500, L100.0100 ####[facility] [address] [place], [address] CO2 [Moles/Vol] 26.0 mmol/L Normal 21.0-32.0 [facility] Comment on above: Performed By: #### L 500.2500, L100.0100 ####[facility] [address] [place], [address] Creatinine [Mass/Vol] 2.13 mg/dL High 0.70-1.30 [facility] Comment on above: Result Comment: The validity of the calculated GFR GFRAA in patients over70 years has not been determined. Clinical correlation isessential. Performed By: #### L 500.2500, L100.0100 ####[facility] [address] [place], [address] ECRCL 26.08 ml/min Normal [facility] Comment on above: Performed By: #### L 500.2500, L100.0100 ####[facility] [address] [place], [address] EST GFR - AA 38 mL/min Low >60 [facility] Comment on above: Result Comment: Afri can Singaporean GFR Calc Performed By: #### L 500.2500, L100.0100 ####[facility] [address] [place], [address] GAP 11 Normal 5-15 [facility] Comment on above: Performed By: #### L 500.2500, L100.0100 ####[facility] [address] [place], [address] GFR/1.73 sq M.predicted among non-blacks MDRD (S/P/Bld) [Vol rate/Area] 32 mL/min/{1.73_m2} Low >60 [facility] Comment on above: Result Comment: Non- GFR Calc Performed By: #### L 500.2500, L100.0100 ####[facility] [address] [place], [address] Glucose [Mass/Vol] 200 mg/dL High 74-106 [facility] Comment on above: Result Comment: Gluc ose result greater than or equal to 200 mg/dLsuggests DIABETES MELLITUS per A.D.A. criteria. Performed By: #### L 500.2500, L100.0100 ####[facility] [address] [place], [address] Potassium [Moles/Vol] 4.4 mmol/L Normal 3.5-5.1 [facility] Comment on above: Performed By: #### L 500.2500, L100.0100 ####[facility] [address] [place], [address] Sodium [Moles/Vol] 142 mmol/L Normal 136-145 [facility] Comment on above: Performed By: #### L 500.2500, L100.0100 ####[facility] [address] [place], [address] Urea nitrogen [Mass/Vol] 91 mg/dL High 7-18 [facility] Comment on above: Performed By: #### L 500.2500, L100.0100 ####[facility] [address] [place], [address] Bedside Glucoseon 11-19-2023 FINGERSTICK GLU 262 mg/dL High 74-106 [facility] Comment on above: Result Comment: MYKE GEMENT OF PATIENT CARE PER NURSING PROTOCOL Performed By: #### L 501.080 ####[facility] [address] [place], [address] FINGERSTICK GLU 142 mg/dL High 74-106 [facility] Comment on above: Result Comment: MYKE GEMENT OF PATIENT CARE PER NURSING PROTOCOL Performed By: #### L 501.080 ####[facility] [address] [place], [address] FINGERSTICK GLU 284 mg/dL High 74-106 [facility] Comment on above: Result Comment: MYKE GEMENT OF PATIENT CARE PER NURSING PROTOCOL Performed By: #### L 501.080 ####[facility] [address] [place], [address] FINGERSTICK GLU 201 mg/dL High 74-106 [facility] Comment on above: Result Comment: MYKE GEMENT OF PATIENT CARE PER NURSING PROTOCOL Performed By: #### L 501.080 ####[facility] [address] [place], [address] FINGERSTICK GLU 289 mg/dL High 74-106 [facility] Comment on above: Result Comment: MYKE GEMENT OF PATIENT CARE PER NURSING PROTOCOL Performed By: #### L 501.080 ####[facility] [address] [place], [address] CBC W/Diff, Automatedon 09-0 PLT EST SLT DEC Normal ADEQ [facility] Comment on above: Performed By: #### L 500.2500, L100.0100 ####[facility] [address] [place], [address] 12 Lead EKGon 11-18-2023 12 Lead EKG Normal [facility] BNP,B-Type NATRIURETIC PEPTI Nico 11-18-2023 Natriuretic peptide B (Bld) [Mass/Vol] 107.6 pg/mL High 0-100 [facility] Comment on above: Performed By: #### L 503.6620 ####[facility] [address] [place], [address] Basic Metabolic Profile (BMP )on 11-18-2023 BUN/CRE 36.3 RATIO High 10-20 [facility] Comment on above: Performed By: #### L 500.2500, L100.0100 ####[facility] [address] [place], [address] CA,Total 8.7 mg/dL Normal 8.5-10.1 [facility] Comment on above: Performed By: #### L 500.2500, L100.0100 ####[facility] [address] [place], [address] Chloride [Moles/Vol] 110 mmol/L High 98-107 [facility] Comment on above: Performed By: #### L 500.2500, L100.0100 ####[facility] [address] [place], [address] CO2 [Moles/Vol] 28.0 mmol/L Normal 21.0-32.0 [facility] Comment on above: Performed By: #### L 500.2500, L100.0100 ####[facility] [address] [place], [address] Creatinine [Mass/Vol] 2.56 mg/dL High 0.70-1.30 [facility] Comment on above: Result Comment: The validity of the calculated GFR GFRAA in patients over70 years has not been determined. Clinical correlation isessential. Performed By: #### L 500.2500, L100.0100 ####[facility] [address] [place], [address] ECRCL 21.65 ml/min Normal [facility] Comment on above: Performed By: #### L 500.2500, L100.0100 ####[facility] [address] [place], [address] EST GFR - AA 31 mL/min Low >60 [facility] Comment on above: Result Comment: Afri can Singaporean GFR Calc Performed By: #### L 500.2500, L100.0100 ####[facility] [address] [place], [address] GAP 6 Normal 5-15 [facility] Comment on above: Performed By: #### L 500.2500, L100.0100 ####[facility] [address] [place], [address] GFR/1.73 sq M.predicted among non-blacks MDRD (S/P/Bld) [Vol rate/Area] 26 mL/min/{1.73_m2} Low >60 [facility] Comment on above: Result Comment: Non- GFR Calc Performed By: #### L 500.2500, L100.0100 ####[facility] [address] [place], [address] Glucose [Mass/Vol] 188 mg/dL High 74-106 [facility] Comment on above: Result Comment: Fast ing Glucose result greater than or equal to 126 mg/dLsuggests DIABETES MELLITUS per A.D.A. criteria. Performed By: #### L 500.2500, L100.0100 ####[facility] [address] [place], [address] Potassium [Moles/Vol] 4.5 mmol/L Normal 3.5-5.1 [facility] Comment on above: Performed By: #### L 500.2500, L100.0100 ####[facility] [address] [place], [address] Sodium [Moles/Vol] 144 mmol/L Normal 136-145 [facility] Comment on above: Performed By: #### L 500.2500, L100.0100 ####[facility] [address] [place], [address] Urea nitrogen [Mass/Vol] 93 mg/dL High 7-18 [facility] Comment on above: Performed By: #### L 500.2500, L100.0100 ####[facility] [address] [place], [address] Bedside Glucoseon 11-18-2023 FINGERSTICK GLU 119 mg/dL High 74-106 [facility] Comment on above: Result Comment: MYKE SAGE OF PATIENT CARE PER NURSING PROTOCOL Performed By: #### L 501.080 ####[facility] [address] [place], [address] CBC W/Diff, Automatedon Absolute Lymph 0.99 X10 3/uL Normal 0.83-4.51 [facility] Comment on above: Performed By: #### L 500.2500, L100.0100 ####[facility] [address] [place], [address] Absolute Neut 5.3 X10 3/uL Normal 2.0-7.7 [facility] Comment on above: Performed By: #### L 500.2500, L100.0100 ####[facility] [address] [place], [address] Basophils/100 WBC (Bld) 0.6 % Normal 0-1 [facility] Comment on above: Performed By: #### L 500.2500, L100.0100 ####[facility] [address] [place], [address] Eosinophils/100 WBC (Bld) 4.3 % Normal 0-5 [facility] Comment on above: Performed By: #### L 500.2500, L100.0100 ####[facility] [address] [place], [address] Erythrocyte distribution width (RBC) [Ratio] 14.3 % Normal 11.6-14.6 [facility] Comment on above: Performed By: #### L 500.2500, L100.0100 ####[facility] [address] [place], [address] Hematocrit (Bld) [Volume fraction] 27.2 % Low 40-54 [facility] Comment on above: Performed By: #### L 500.2500, L100.0100 ####[facility] [address] [place], [address] Hemoglobin (Bld) [Mass/Vol] 8.5 g/dL Low 13.0-16.5 [facility] Comment on above: Performed By: #### L 500.2500, L100.0100 ####[facility] [address] [place], [address] IG% 0.400 Normal 0.0-0.9 [facility] Comment on above: Result Comment: IG% - Immature Granulocytes (promyelocytes, myelocytes andmetamyelocytes) > 1% indicates that a LEFT SHIFT is Present. Performed By: #### L 500.2500, L100.0100 ####[facility] [address] [place], [address] Lymphocytes/100 WBC (Bld) 14.1 % Low 19-41 [facility] Comment on above: Performed By: #### L 500.2500, L100.0100 ####[facility] [address] [place], [address] MCH (RBC) [Entitic mass] 30.5 pg Normal 27.0-32.0 [facility] Comment on above: Performed By: #### L 500.2500, L100.0100 ####[facility] [address] [place], [address] MCHC (RBC) [Mass/Vol] 31.3 g/dL Low 32-36 [facility] Comment on above: Performed By: #### L 500.2500, L100.0100 ####[facility] [address] [place], [address] MCV (RBC) [Entitic vol] 97.5 fL High 80-94 [facility] Comment on above: Performed By: #### L 500.2500, L100.0100 ####[facility] [address] [place], [address] Monocytes/100 WBC (Bld) 6.0 % Normal 0-10 [facility] Comment on above: Performed By: #### L 500.2500, L100.0100 ####[facility] [address] [place], [address] Neutrophils/100 WBC (Bld) 74.6 % High 47-70 [facility] Comment on above: Performed By: #### L 500.2500, L100.0100 ####[facility] [address] [place], [address] Nucleated RBC (Bld) [#/Vol] 0 10*3/uL Normal 0-5 [facility] Comment on above: Performed By: #### L 500.2500, L100.0100 ####[facility] [address], [address] Platelet mean volume (Bld) [Entitic vol] 11.2 fL Normal 6.2-12.0 [facility] Comment on above: Performed By: #### L 500.2500, L100.0100 ####[facility] [address] [place], [address] Platelets (Bld) [#/Vol] 116 10*3/uL Low 150-450 [facility] Comment on above: Performed By: #### L 500.2500, L100.0100 ####[facility] [address] [place], [address] RBC (Bld) [#/Vol] 2.79 10*6/uL Low 4.6-6.2 [facility] Comment on above: Performed By: #### L 500.2500, L100.0100 ####[facility] [address] [place], [address] RDW SD 51.0 fl High 35.1-43.9 [facility] Comment on above: Performed By: #### L 500.2500, L100.0100 ####[facility] [address] [place], [address] WBC (Bld) [#/Vol] 7.0 10*3/uL Normal 4.4-11.0 [facility] Comment on above: Performed By: #### L 500.2500, L100.0100 ####[facility] [address] [place], [address] Chest 1 View (Portable)on Chest 1 View (Portable) Normal [facility] D-Dimer Quantitative (DVT/PE )on 11-18-2023 D-DIMER QUANT 0.83 FEU/ug/m Invalid Interpretation Code 0.27-0.49 [facility] Comment on above: Result Comment: D-Di kassidy ELEVATED (>0.49): Additional studies and clinicalassessments are indicated to conclude diagnosis of:Deep Vein Thrombosis (DVT) or Pulmonary Embolism (PE)CRITICAL VALUE VERIFIED. CALLED TO ANGELICA OSEI11/18/23 1448 Nelly Huynh.RESULTS READ BACK BY SAME. Performed By: #### L 300.8000 ####[facility] [address] [place], [address] Emergency Department Summary on 11-18-2023 Emergency Department Summary Normal [facility] H AND P Exam - Hospitaliston 11-18-2023 H&P Exam - Hospitalist Normal [facility] L501.4020on 11-18-2023 TROPONIN-I HS 35 pg/mL Normal 3.0-78.0 [facility] Comment on above: Result Comment: Sara saleh Note: New Test Units and Gender Specific Reference Ranges. For more information see Policy Stat Procedure Burt High Sensitivity Troponin (TNIH) and attachments. Performed By: #### L 501.4020 ####[facility] [address] [place], [address] L501.5425on 11-18-2023 TROPONIN-I HS 32 pg/mL Normal 3.0-78.0 [facility] Comment on above: Order Comment: 1Y Result Comment: Sara saleh Note: New Test Units and Gender Specific Reference Ranges. For more information see Policy Stat Procedure Burt High Sensitivity Troponin (TNIH) and attachments. Performed By: #### L 501.5425 ####[facility] [address] [place], [address] M100.678on 11-18-2023 M100.678 Pending SARS-CoV-2 (COVID 19) Negative INFLUENZA A Negative INFLUENZA B Negative RSV PCR Negative Normal [facility] Comment on above: Performed By: #### M 100.678 ####[facility] [address] [place], [address] RESPIRATORY PANEL MOLECULARo n 11-18-2023 RP PANEL Normal [facility] Comment on above: Performed By: #### M 100.638 ####[facility] [address] [place], [address] Venous Blood Gason 4 Blood Gas Type DAYANA Normal [facility] Comment on above: Performed By: #### L 9000.0810 ####[facility] [address] [place], [address] CO2 [Moles/Vol] 33 mmol/L Normal 23-33 [facility] Comment on above: Performed By: #### L 9000.0810 ####[facility] [address] [place], [address] FI02 4.0 Normal [facility] Comment on above: Performed By: #### L 9000.0810 ####[facility] [address] [place], [address] HCO3 (Bld) [Moles/Vol] 31 mmol/L High 22-26 [facility] Comment on above: Performed By: #### L 9000.0810 ####[facility] [address] [place], [address] O2 Delivery Dev Cannula Normal [facility] Comment on above: Performed By: #### L 9000.0810 ####[facility] [address] [place], [address] SITE Not entered Normal [facility] Comment on above: Performed By: #### L 9000.0810 ####[facility] [address] [place], [address] VBG BE 5 mmol/L High -1.0-3.5 [facility] Comment on above: Performed By: #### L 9000.0810 ####[facility] [address] [place], [address] VBG pCO2 61.5 mmHg High 41-51 [facility] Comment on above: Performed By: #### L 9000.0810 ####[facility] [address] [place], [address] VBG pH 7.31 Low 7.32-7.42 [facility] Comment on above: Performed By: #### L 9000.0810 ####[facility] [address] [place], [address] VBG PO2 50 mmHg High 25-40 [facility] Comment on above: Performed By: #### L 9000.0810 ####[facility] [address] [place], [address] VBG SO2 80 High 50-70 [facility] Comment on above: Performed By: #### L 9000.0810 ####[facility] [address] [place], [address] Basic Metabolic Profile (BMP )on 11-16-2023 BUN/CRE 30.4 RATIO High 10-20 [facility] Comment on above: Performed By: #### L 501.5200, L501.2300, L500.2500, L100.0500 ####[facility] [address] [place], [address] CA,Total 9.4 mg/dL Normal 8.5-10.1 [facility] Comment on above: Performed By: #### L 501.5200, L501.2300, L500.2500, L100.0500 ####[facility] [address] [place], [address] Chloride [Moles/Vol] 106 mmol/L Normal 98-107 [facility] Comment on above: Performed By: #### L 501.5200, L501.2300, L500.2500, L100.0500 ####[facility] [address] [place], [address] CO2 [Moles/Vol] 28.0 mmol/L Normal 21.0-32.0 [facility] Comment on above: Performed By: #### L 501.5200, L501.2300, L500.2500, L100.0500 ####[facility] [address] [place], [address] Creatinine [Mass/Vol] 2.14 mg/dL High 0.70-1.30 [facility] Comment on above: Result Comment: The validity of the calculated GFR GFRAA in patients over70 years has not been determined. Clinical correlation isessential. Performed By: #### L 501.5200, L501.2300, L500.2500, L100.0500 ####[facility] [address] [place], [address] ECRCL 26.04 ml/min Normal [facility] Comment on above: Performed By: #### L 501.5200, L501.2300, L500.2500, L100.0500 ####[facility] [address] [place], [address] EST GFR - AA 38 mL/min Low >60 [facility] Comment on above: Result Comment: Afri can Singaporean GFR Calc Performed By: #### L 501.5200, L501.2300, L500.2500, L100.0500 ####[facility] [address] [place], [address] GAP 7 Normal 5-15 [facility] Comment on above: Performed By: #### L 501.5200, L501.2300, L500.2500, L100.0500 ####[facility] [address] [place], [address] GFR/1.73 sq M.predicted among non-blacks MDRD (S/P/Bld) [Vol rate/Area] 31 mL/min/{1.73_m2} Low >60 [facility] Comment on above: Result Comment: Non- GFR Calc Performed By: #### L 501.5200, L501.2300, L500.2500, L100.0500 ####[facility] [address] [place], [address] Glucose [Mass/Vol] 122 mg/dL High 74-106 [facility] Comment on above: Result Comment: Fast ing Glucose result from 100 to 125 mg/dLsuggests IMPAIRED HOMEOSTASIS per A.D.A. criteria. Performed By: #### L 501.5200, L501.2300, L500.2500, L100.0500 ####[facility] [address] [place], [address] Potassium [Moles/Vol] 4.3 mmol/L Normal 3.5-5.1 [facility] Comment on above: Performed By: #### L 501.5200, L501.2300, L500.2500, L100.0500 ####[facility] [address] [place], [address] Sodium [Moles/Vol] 141 mmol/L Normal 136-145 [facility] Comment on above: Performed By: #### L 501.5200, L501.2300, L500.2500, L100.0500 ####[facility] [address] [place], [address] Urea nitrogen [Mass/Vol] 65 mg/dL High 7-18 [facility] Comment on above: Performed By: #### L 501.5200, L501.2300, L500.2500, L100.0500 ####[facility] [address] [place], [address] Bedside Glucoseon 11-16-2023 FINGERSTICK GLU 176 mg/dL High 74-106 [facility] Comment on above: Result Comment: MYKE GEMENT OF PATIENT CARE PER NURSING PROTOCOL Performed By: #### L 501.080 ####[facility] [address] [place], [address] FINGERSTICK GLU 158 mg/dL High 74-106 [facility] Comment on above: Result Comment: MYKE GEMENT OF PATIENT CARE PER NURSING PROTOCOL Performed By: #### L 501.080 ####[facility] [address] [place], [address] FINGERSTICK GLU 115 mg/dL High 74-106 [facility] Comment on above: Result Comment: MYKE GEMENT OF PATIENT CARE PER NURSING PROTOCOL Performed By: #### L 501.080 ####[facility] [address] [place], [address] FINGERSTICK GLU 151 mg/dL High 74-106 [facility] Comment on above: Result Comment: MYKE GEMENT OF PATIENT CARE PER NURSING PROTOCOL Performed By: #### L 501.080 ####[facility] [address] [place], [address] CBC-Complete Blood Cnt No Di ffon 11-16-2023 Erythrocyte distribution width (RBC) [Ratio] 14.2 % Normal 11.6-14.6 [facility] Comment on above: Performed By: #### L 501.5200, L501.2300, L500.2500, L100.0500 ####[facility] [address] [place], [address] Hematocrit (Bld) [Volume fraction] 28.1 % Low 40-54 [facility] Comment on above: Performed By: #### L 501.5200, L501.2300, L500.2500, L100.0500 ####[facility] [address] [place], [address] Hemoglobin (Bld) [Mass/Vol] 8.8 g/dL Low 13.0-16.5 [facility] Comment on above: Performed By: #### L 501.5200, L501.2300, L500.2500, L100.0500 ####[facility] [address] [place], [address] MCH (RBC) [Entitic mass] 29.9 pg Normal 27.0-32.0 [facility] Comment on above: Performed By: #### L 501.5200, L501.2300, L500.2500, L100.0500 ####[facility] [address] [place], [address] MCHC (RBC) [Mass/Vol] 31.3 g/dL Low 32-36 [facility] Comment on above: Performed By: #### L 501.5200, L501.2300, L500.2500, L100.0500 ####[facility] [address] [place], [address] MCV (RBC) [Entitic vol] 95.6 fL High 80-94 [facility] Comment on above: Performed By: #### L 501.5200, L501.2300, L500.2500, L100.0500 ####[facility] [address] [place], [address] Platelet mean volume (Bld) [Entitic vol] 10.8 fL Normal 6.2-12.0 [facility] Comment on above: Performed By: #### L 501.5200, L501.2300, L500.2500, L100.0500 ####[facility] [address] [place], [address] Platelets (Bld) [#/Vol] 116 10*3/uL Low 150-450 [facility] Comment on above: Performed By: #### L 501.5200, L501.2300, L500.2500, L100.0500 ####[facility] [address] [place], [address] RBC (Bld) [#/Vol] 2.94 10*6/uL Low 4.6-6.2 [facility] Comment on above: Performed By: #### L 501.5200, L501.2300, L500.2500, L100.0500 ####[facility] [address] [place], [address] RDW SD 48.8 fl High 35.1-43.9 [facility] Comment on above: Performed By: #### L 501.5200, L501.2300, L500.2500, L100.0500 ####[facility] [address] [place], [address] WBC (Bld) [#/Vol] 6.3 10*3/uL Normal 4.4-11.0 [facility] Comment on above: Performed By: #### L 501.5200, L501.2300, L500.2500, L100.0500 ####[facility] [address] [place], [address] Lipid Profileon 11-16-2023 CHOL Normal 200 [facility] Comment on above: Result Comment: Canc elled via OM: MD Ordered Performed By: #### L 500.4100 ####[facility] [address] [place], [address] HDL Normal [facility] Comment on above: Result Comment: Canc elled via OM: MD Ordered Performed By: #### L 500.4100 ####[facility] [address] [place], [address] LDL Normal 0-130 [facility] Comment on above: Result Comment: Canc elled via OM: MD Ordered Performed By: #### L 500.4100 ####[facility] [address] [place], [address] TRIG Normal [facility] Comment on above: Result Comment: Canc elled via OM: MD Ordered Performed By: #### L 500.4100 ####[facility] [address] [place], [address] VLDL Normal 5-40 [facility] Comment on above: Result Comment: Canc elled via OM: MD Ordered Performed By: #### L 500.4100 ####[facility] [address] [place], [address] Magnesiumon 11-16-2023 Magnesium [Mass/Vol] 1.8 mg/dL Normal 1.6-2.6 [facility] Comment on above: Performed By: #### L 501.5200, L501.2300, L500.2500, L100.0500 ####[facility] [address] [place], [address] Phosphoruson 11-16-2023 Phosphate [Mass/Vol] 3.2 mg/dL Normal 2.5-4.9 [facility] Comment on above: Performed By: #### L 501.5200, L501.2300, L500.2500, L100.0500 ####[facility] [address] [place], [address] 12 Lead EKGon 11-15-2023 12 Lead EKG Normal [facility] Bedside Glucoseon 11-15-2023 FINGERSTICK GLU 151 mg/dL High 74-106 [facility] Comment on above: Result Comment: MYKE GEMENT OF PATIENT CARE PER NURSING PROTOCOL Performed By: #### L 501.080 ####[facility] [address] [place], [address] FINGERSTICK GLU 164 mg/dL High -106 [facility] Comment on above: Result Comment: MYKE GEMENT OF PATIENT CARE PER NURSING PROTOCOL Performed By: #### L 501.080 ####[facility] [address] [place], [address] FINGERSTICK GLU 113 mg/dL High -106 [facility] Comment on above: Result Comment: MYKE GEMENT OF PATIENT CARE PER NURSING PROTOCOL Performed By: #### L 501.080 ####[facility] [address] [place], [address] FINGERSTICK GLU 173 mg/dL High -106 [facility] Comment on above: Result Comment: MYKE GEMENT OF PATIENT CARE PER NURSING PROTOCOL Performed By: #### L 501.080 ####[facility] [address] [place], [address] CBC W/Diff, Automatedon 0 Absolute Lymph 0.90 X10 3/uL Normal 0.83-4.51 [facility] Comment on above: Performed By: #### L 100.0100, L501.9985, L501.9520, L500.4100, L500.4050 ####[facility] [address] [place], [address] Absolute Neut 5.2 X10 3/uL Normal 2.0-7.7 [facility] Comment on above: Performed By: #### L 100.0100, L501.9985, L501.9520, L500.4100, L500.4050 ####[facility] [address] [place], [address] Basophils/100 WBC (Bld) 0.4 % Normal 0-1 [facility] Comment on above: Performed By: #### L 100.0100, L501.9985, L501.9520, L500.4100, L500.4050 ####[facility] [address] [place], [address] Eosinophils/100 WBC (Bld) 3.2 % Normal 0-5 [facility] Comment on above: Performed By: #### L 100.0100, L501.9985, L501.9520, L500.4100, L500.4050 ####[facility] [address] [place], [address] Erythrocyte distribution width (RBC) [Ratio] 14.0 % Normal 11.6-14.6 [facility] Comment on above: Performed By: #### L 100.0100, L501.9985, L501.9520, L500.4100, L500.4050 ####[facility] [address] [place], [address] Hematocrit (Bld) [Volume fraction] 27.7 % Low 40-54 [facility] Comment on above: Performed By: #### L 100.0100, L501.9985, L501.9520, L500.4100, L500.4050 ####[facility] [address] [place], [address] Hemoglobin (Bld) [Mass/Vol] 8.8 g/dL Low 13.0-16.5 [facility] Comment on above: Performed By: #### L 100.0100, L501.9985, L501.9520, L500.4100, L500.4050 ####[facility] [address] [place], [address] IG% 0.300 Normal 0.0-0.9 [facility] Comment on above: Result Comment: IG% - Immature Granulocytes (promyelocytes, myelocytes andmetamyelocytes) > 1% indicates that a LEFT SHIFT is Present. Performed By: #### L 100.0100, L501.9985, L501.9520, L500.4100, L500.4050 ####[facility] [address] [place], [address] Lymphocytes/100 WBC (Bld) 13.2 % Low 19-41 [facility] Comment on above: Performed By: #### L 100.0100, L501.9985, L501.9520, L500.4100, L500.4050 ####[facility] [address] [place], [address] MCH (RBC) [Entitic mass] 30.7 pg Normal 27.0-32.0 [facility] Comment on above: Performed By: #### L 100.0100, L501.9985, L501.9520, L500.4100, L500.4050 ####[facility] [address] [place], [address] MCHC (RBC) [Mass/Vol] 31.8 g/dL Low 32-36 [facility] Comment on above: Performed By: #### L 100.0100, L501.9985, L501.9520, L500.4100, L500.4050 ####[facility] [address] [place], [address] MCV (RBC) [Entitic vol] 96.5 fL High 80-94 [facility] Comment on above: Performed By: #### L 100.0100, L501.9985, L501.9520, L500.4100, L500.4050 ####[facility] [address] [place], [address] Monocytes/100 WBC (Bld) 6.0 % Normal 0-10 [facility] Comment on above: Performed By: #### L 100.0100, L501.9985, L501.9520, L500.4100, L500.4050 ####[facility] [address] [place], [address] Neutrophils/100 WBC (Bld) 76.9 % High 47-70 [facility] Comment on above: Performed By: #### L 100.0100, L501.9985, L501.9520, L500.4100, L500.4050 ####[facility] [address] [place], [address] Nucleated RBC (Bld) [#/Vol] 0 10*3/uL Normal 0-5 [facility] Comment on above: Performed By: #### L 100.0100, L501.9985, L501.9520, L500.4100, L500.4050 ####[facility] [address] [place], [address] Platelet mean volume (Bld) [Entitic vol] 10.3 fL Normal 6.2-12.0 [facility] Comment on above: Performed By: #### L 100.0100, L501.9985, L501.9520, L500.4100, L500.4050 ####[facility] [address] [place], [address] Platelets (Bld) [#/Vol] 106 10*3/uL Low 150-450 [facility] Comment on above: Performed By: #### L 100.0100, L501.9985, L501.9520, L500.4100, L500.4050 ####[facility] [address] [place], [address] RBC (Bld) [#/Vol] 2.87 10*6/uL Low 4.6-6.2 [facility] Comment on above: Performed By: #### L 100.0100, L501.9985, L501.9520, L500.4100, L500.4050 ####[facility] [address] [place], [address] RDW SD 48.1 fl High 35.1-43.9 [facility] Comment on above: Performed By: #### L 100.0100, L501.9985, L501.9520, L500.4100, L500.4050 ####[facility] [address] [place], [address] WBC (Bld) [#/Vol] 6.8 10*3/uL Normal 4.4-11.0 [facility] Comment on above: Performed By: #### L 100.0100, L501.9985, L501.9520, L500.4100, L500.4050 ####[facility] [address] [place], [address] Chest 1 View (Portable)on Chest 1 View (Portable) Normal [facility] Comprehensive Metabolic Prof ilon 11-15-2023 Albumin [Mass/Vol] 3.2 g/dL Normal 3.2-5.0 [facility] Comment on above: Performed By: #### L 100.0100, L501.9985, L501.9520, L500.4100, L500.4050 ####[facility] [address] [place], [address] Albumin/Globulin [Mass ratio] 0.9 {ratio} Normal 0.9-2.4 [facility] Comment on above: Performed By: #### L 100.0100, L501.9985, L501.9520, L500.4100, L500.4050 ####[facility] [address] [place], [address] ALK P 79 U/L Normal 45-117 [facility] Comment on above: Performed By: #### L 100.0100, L501.9985, L501.9520, L500.4100, L500.4050 ####[facility] [address] [place], [address] ALT [Catalytic activity/Vol] 14 U/L Low 16-61 [facility] Comment on above: Performed By: #### L 100.0100, L501.9985, L501.9520, L500.4100, L500.4050 ####[facility] [address] [place], [address] AST [Catalytic activity/Vol] 10 U/L Low 15-37 [facility] Comment on above: Performed By: #### L 100.0100, L501.9985, L501.9520, L500.4100, L500.4050 ####[facility] [address] [place], [address] Bilirubin [Mass/Vol] 0.50 mg/dL Normal 0.20-1.00 [facility] Comment on above: Result Comment: For patients on eltrombopag therapy, use of Dimension Burt TBIL is not recommended. Performed By: #### L 100.0100, L501.9985, L501.9520, L500.4100, L500.4050 ####[facility] [address] [place], [address] BUN/CRE 26.5 RATIO High 10-20 [facility] Comment on above: Performed By: #### L 100.0100, L501.9985, L501.9520, L500.4100, L500.4050 ####[facility] [address] [place], [address] CA,Total 8.9 mg/dL Normal 8.5-10.1 [facility] Comment on above: Performed By: #### L 100.0100, L501.9985, L501.9520, L500.4100, L500.4050 ####[facility] [address] [place], [address] Chloride [Moles/Vol] 109 mmol/L High 98-107 [facility] Comment on above: Performed By: #### L 100.0100, L501.9985, L501.9520, L500.4100, L500.4050 ####[facility] [address] [place], [address] CO2 [Moles/Vol] 30.0 mmol/L Normal 21.0-32.0 [facility] Comment on above: Performed By: #### L 100.0100, L501.9985, L501.9520, L500.4100, L500.4050 ####[facility] [address] [place], [address] Creatinine [Mass/Vol] 2.26 mg/dL High 0.70-1.30 [facility] Comment on above: Result Comment: The validity of the calculated GFR GFRAA in patients over70 years has not been determined. Clinical correlation isessential. Performed By: #### L 100.0100, L501.9985, L501.9520, L500.4100, L500.4050 ####[facility] [address] [place], [address] ECRCL 24.77 ml/min Normal [facility] Comment on above: Performed By: #### L 100.0100, L501.9985, L501.9520, L500.4100, L500.4050 ####[facility] [address] [place], [address] EST GFR - AA 36 mL/min Low >60 [facility] Comment on above: Result Comment: Afri can Singaporean GFR Calc Performed By: #### L 100.0100, L501.9985, L501.9520, L500.4100, L500.4050 ####[facility] [address] [place], [address] GAP 4 Low 5-15 [facility] Comment on above: Performed By: #### L 100.0100, L501.9985, L501.9520, L500.4100, L500.4050 ####[facility] [address] [place], [address] GFR/1.73 sq M.predicted among non-blacks MDRD (S/P/Bld) [Vol rate/Area] 30 mL/min/{1.73_m2} Low >60 [facility] Comment on above: Result Comment: Non- GFR Calc Performed By: #### L 100.0100, L501.9985, L501.9520, L500.4100, L500.4050 ####[facility] [address] [place], [address] Globulin (S) [Mass/Vol] 3.6 g/dL Normal 2.2-4.2 [facility] Comment on above: Performed By: #### L 100.0100, L501.9985, L501.9520, L500.4100, L500.4050 ####[facility] [address] [place], [address] Glucose [Mass/Vol] 174 mg/dL High 74-106 [facility] Comment on above: Result Comment: Fast ing Glucose result greater than or equal to 126 mg/dLsuggests DIABETES MELLITUS per A.D.A. criteria. Performed By: #### L 100.0100, L501.9985, L501.9520, L500.4100, L500.4050 ####[facility] [address] [place], [address] Potassium [Moles/Vol] 4.6 mmol/L Normal 3.5-5.1 [facility] Comment on above: Performed By: #### L 100.0100, L501.9985, L501.9520, L500.4100, L500.4050 ####[facility] [address] [place], [address] Sodium [Moles/Vol] 143 mmol/L Normal 136-145 [facility] Comment on above: Performed By: #### L 100.0100, L501.9985, L501.9520, L500.4100, L500.4050 ####[facility] [address] [place], [address] T PROT 6.8 g/dL Normal 6.4-8.2 [facility] Comment on above: Performed By: #### L 100.0100, L501.9985, L501.9520, L500.4100, L500.4050 ####[facility] [address] [place], [address] Urea nitrogen [Mass/Vol] 60 mg/dL High 7-18 [facility] Comment on above: Performed By: #### L 100.0100, L501.9985, L501.9520, L500.4100, L500.4050 ####[facility] [address] [place], [address] Echo Complete W/ Contraston 11-15-2023 Echo Complete W/ Contrast Normal [facility] Hemoglobin A1con 11-15-2023 HbA1c (Bld) [Mass fraction] 5.7 % High 3.8-5.6 [facility] Comment on above: Result Comment: Norm al < 5.7 % Prediabetic 5.7 - 6.4 % Diabetic >or= 6.5 % Please note range changes. Performed By: #### L 100.0100, L501.9985, L501.9520, L500.4100, L500.4050 ####[facility] [address] [place], [address] L501.4020on 11-15-2023 TROPONIN-I HS 150 pg/mL Invalid Interpretation Code 3.0-78.0 [facility] Comment on above: Order Comment: 'TROP ' Serial specimen #1, #2 or #3: 3 Result Comment: Crit ical Result(s) Called at: 05:09:09 11/15/2023 by: Santa. VADIM AN RN PCU. Results read back by same. Please Note: New Test Units and Gender Specific Reference Ranges. For more information see Policy Stat Procedure Burt High Sensitivity Troponin (TNIH) and attachments. Performed By: #### L 501.4020 ####[facility] [address] [place], [address] TROPONIN-I HS 119 pg/mL High 3.0-78.0 [facility] Comment on above: Order Comment: 'TROP ' Serial specimen #1, #2 or #3: 2 Result Comment: Plea Note: New Test Units and Gender Specific Reference Ranges. For more information see Policy Stat Procedure Burt High Sensitivity Troponin (TNIH) and attachments. Performed By: #### L 501.4020 ####[facility] [address] [place], [address] Lipid Profileon 11-15-2023 Cholesterol [Mass/Vol] 170 mg/dL Normal 200 [facility] Comment on above: Result Comment: <200 mg/dL Desirable 200-240 mg/dL Borderline >240 mg/dL High Risk Performed By: #### L 100.0100, L501.9985, L501.9520, L500.4100, L500.4050 ####[facility] [address] [place], [address] Cholesterol in HDL [Mass/Vol] 36 mg/dL Low [facility] Comment on above: Result Comment: The drugs N-Acetylcysteine and Metamizole may falselydepress this assay. Reference Range HDL <40 mg/dL Low HDL Cholesterol HDL >or= 60 mg/dL High HDL Cholesterol Performed By: #### L 100.0100, L501.9985, L501.9520, L500.4100, L500.4050 ####[facility] [address] [place], [address] Cholesterol in LDL [Mass/Vol] 101 mg/dL Normal 0-130 [facility] Comment on above: Performed By: #### L 100.0100, L501.9985, L501.9520, L500.4100, L500.4050 ####[facility] [address] [place], [address] Cholesterol in VLDL [Mass/Vol] 33 mg/dL Normal 5-40 [facility] Comment on above: Performed By: #### L 100.0100, L501.9985, L501.9520, L500.4100, L500.4050 ####[facility] [address] [place], [address] Triglyceride [Mass/Vol] 163 mg/dL Normal [facility] Comment on above: Result Comment: The drugs N-Acetylcysteine and Metamizole may falselydepress this assay.Serum Triglycerides Reference Interval Normal <150 mg/dL Borderline high 150 - 199 mg/dL High 200 - 499 mg/dL Very High > or = 500 mg/dL Performed By: #### L 100.0100, L501.9985, L501.9520, L500.4100, L500.4050 ####[facility] [address] [place], [address] Magnesiumon 11-15-2023 Magnesium [Mass/Vol] 1.8 mg/dL Normal 1.6-2.6 [facility] Comment on above: Order Comment: Comme nts: may add to ED labs Performed By: #### L 127.7674, L501.5200 ####[facility] [address] [place], [address] Procalcitoninon 11-15-2023 Procalcitonin 0.16 ng/mL High 0.00-0.09 [facility] Comment on above: Result Comment: A [...] obtained. Performed By: #### L 509.7000, L501.5200 ####[facility] [address] [place], [address] Thyroid Stim Hormone (TSH)on 11-15-2023 TSH 2.800 uIU/mL Normal 0.358-3.740 [facility] Comment on above: Performed By: #### L 100.0100, L501.9985, L501.9520, L500.4100, L500.4050 ####[facility] [address] [place], [address] 12 Lead EKGon 11-14-2023 12 Lead EKG Normal [facility] BNP,B-Type NATRIURETIC PEPTI Nico 11-14-2023 Natriuretic peptide B (Bld) [Mass/Vol] 362.0 pg/mL High 0-100 [facility] Comment on above: Performed By: #### L 500.4050, L503.6620, L100.0100, L501.4020 ####[facility] [address] [place], [address] CBC W/Diff, Automatedon 09-0 4-4 Absolute Lymph 1.19 X10 3/uL Normal 0.83-4.51 [facility] Comment on above: Performed By: #### L 500.4050, L503.6620, L100.0100, L501.4020 ####[facility] [address] [place], [address] Absolute Neut 3.7 X10 3/uL Normal 2.0-7.7 [facility] Comment on above: Performed By: #### L 500.4050, L503.6620, L100.0100, L501.4020 ####[facility] [address] [place], [address] Basophils/100 WBC (Bld) 0.7 % Normal 0-1 [facility] Comment on above: Performed By: #### L 500.4050, L503.6620, L100.0100, L501.4020 ####[facility] [address] [place], [address] Eosinophils/100 WBC (Bld) 4.5 % Normal 0-5 [facility] Comment on above: Performed By: #### L 500.4050, L503.6620, L100.0100, L501.4020 ####[facility] [address] [place], [address] Erythrocyte distribution width (RBC) [Ratio] 14.0 % Normal 11.6-14.6 [facility] Comment on above: Performed By: #### L 500.4050, L503.6620, L100.0100, L501.4020 ####[facility] [address] [place], [address] Hematocrit (Bld) [Volume fraction] 26.7 % Low 40-54 [facility] Comment on above: Performed By: #### L 500.4050, L503.6620, L100.0100, L501.4020 ####[facility] [address] [place], [address] Hemoglobin (Bld) [Mass/Vol] 8.2 g/dL Low 13.0-16.5 [facility] Comment on above: Performed By: #### L 500.4050, L503.6620, L100.0100, L501.4020 ####[facility] [address] [place], [address] IG% 0.300 Normal 0.0-0.9 [facility] Comment on above: Result Comment: IG% - Immature Granulocytes (promyelocytes, myelocytes andmetamyelocytes) > 1% indicates that a LEFT SHIFT is Present. Performed By: #### L 500.4050, L503.6620, L100.0100, L501.4020 ####[facility] [address] [place], [address] Lymphocytes/100 WBC (Bld) 20.7 % Normal 19-41 [facility] Comment on above: Performed By: #### L 500.4050, L503.6620, L100.0100, L501.4020 ####[facility] [address] [place], [address] MCH (RBC) [Entitic mass] 29.4 pg Normal 27.0-32.0 [facility] Comment on above: Performed By: #### L 500.4050, L503.6620, L100.0100, L501.4020 ####[facility] [address] [place], [address] MCHC (RBC) [Mass/Vol] 30.7 g/dL Low 32-36 [facility] Comment on above: Performed By: #### L 500.4050, L503.6620, L100.0100, L501.4020 ####[facility] [address] [place], [address] MCV (RBC) [Entitic vol] 95.7 fL High 80-94 [facility] Comment on above: Performed By: #### L 500.4050, L503.6620, L100.0100, L501.4020 ####[facility] [address] [place], [address] Monocytes/100 WBC (Bld) 9.2 % Normal 0-10 [facility] Comment on above: Performed By: #### L 500.4050, L503.6620, L100.0100, L501.4020 ####[facility] [address] [place], [address] Neutrophils/100 WBC (Bld) 64.6 % Normal 47-70 [facility] Comment on above: Performed By: #### L 500.4050, L503.6620, L100.0100, L501.4020 ####[facility] [address] [place], [address] Nucleated RBC (Bld) [#/Vol] 0 10*3/uL Normal 0-5 [facility] Comment on above: Performed By: #### L 500.4050, L503.6620, L100.0100, L501.4020 ####[facility] [address] [place], [address] Platelet mean volume (Bld) [Entitic vol] 10.9 fL Normal 6.2-12.0 [facility] Comment on above: Performed By: #### L 500.4050, L503.6620, L100.0100, L501.4020 ####[facility] [address] [place], [address] Platelets (Bld) [#/Vol] 115 10*3/uL Low 150-450 [facility] Comment on above: Performed By: #### L 500.4050, L503.6620, L100.0100, L501.4020 ####[facility] [address] [place], [address] RBC (Bld) [#/Vol] 2.79 10*6/uL Low 4.6-6.2 [facility] Comment on above: Performed By: #### L 500.4050, L503.6620, L100.0100, L501.4020 ####[facility] [address] [place], [address] RDW SD 48.0 fl High 35.1-43.9 [facility] Comment on above: Performed By: #### L 500.4050, L503.6620, L100.0100, L501.4020 ####[facility] [address] [place], [address] WBC (Bld) [#/Vol] 5.7 10*3/uL Normal 4.4-11.0 [facility] Comment on above: Performed By: #### L 500.4050, L503.6620, L100.0100, L501.4020 ####[facility] [address] [place], [address] Chest 1 View (Portable)on Chest 1 View (Portable) Normal [facility] Comprehensive Metabolic Prof ilon 11-14-2023 Albumin [Mass/Vol] 3.1 g/dL Low 3.2-5.0 [facility] Comment on above: Order Comment: 'TROP ' Serial specimen #1, #2 or #3: 1 Performed By: #### L 500.4050, L503.6620, L100.0100, L501.4020 ####[facility] [address] [place], [address] Albumin/Globulin [Mass ratio] 0.9 {ratio} Normal 0.9-2.4 [facility] Comment on above: Order Comment: 'TROP ' Serial specimen #1, #2 or #3: 1 Performed By: #### L 500.4050, L503.6620, L100.0100, L501.4020 ####[facility] [address] [place], [address] ALK P 80 U/L Normal 45-117 [facility] Comment on above: Order Comment: 'TROP ' Serial specimen #1, #2 or #3: 1 Performed By: #### L 500.4050, L503.6620, L100.0100, L501.4020 ####[facility] [address] [place], [address] ALT [Catalytic activity/Vol] 17 U/L Normal 16-61 [facility] Comment on above: Order Comment: 'TROP ' Serial specimen #1, #2 or #3: 1 Performed By: #### L 500.4050, L503.6620, L100.0100, L501.4020 ####[facility] [address] [place], [address] AST [Catalytic activity/Vol] 9 U/L Low 15-37 [facility] Comment on above: Order Comment: 'TROP ' Serial specimen #1, #2 or #3: 1 Performed By: #### L 500.4050, L503.6620, L100.0100, L501.4020 ####[facility] [address] [place], [address] Bilirubin [Mass/Vol] 0.60 mg/dL Normal 0.20-1.00 [facility] Comment on above: Order Comment: 'TROP ' Serial specimen #1, #2 or #3: 1 Result Comment: For patients on eltrombopag therapy, use of Dimension Burt TBIL is not recommended. Performed By: #### L 500.4050, L503.6620, L100.0100, L501.4020 ####[facility] [address] [place], [address] BUN/CRE 24.1 RATIO High 10-20 [facility] Comment on above: Order Comment: 'TROP ' Serial specimen #1, #2 or #3: 1 Performed By: #### L 500.4050, L503.6620, L100.0100, L501.4020 ####[facility] [address] [place], [address] CA,Total 9.0 mg/dL Normal 8.5-10.1 [facility] Comment on above: Order Comment: 'TROP ' Serial specimen #1, #2 or #3: 1 Performed By: #### L 500.4050, L503.6620, L100.0100, L501.4020 ####[facility] [address] [place], [address] Chloride [Moles/Vol] 112 mmol/L High 98-107 [facility] Comment on above: Order Comment: 'TROP ' Serial specimen #1, #2 or #3: 1 Performed By: #### L 500.4050, L503.6620, L100.0100, L501.4020 ####[facility] [address] [place], [address] CO2 [Moles/Vol] 28.0 mmol/L Normal 21.0-32.0 [facility] Comment on above: Order Comment: 'TROP ' Serial specimen #1, #2 or #3: 1 Performed By: #### L 500.4050, L503.6620, L100.0100, L501.4020 ####[facility] [address] [place], [address] Creatinine [Mass/Vol] 2.41 mg/dL High 0.70-1.30 [facility] Comment on above: Order Comment: 'TROP ' Serial specimen #1, #2 or #3: 1 Result Comment: The validity of the calculated GFR GFRAA in patients over70 years has not been determined. Clinical correlation isessential. Performed By: #### L 500.4050, L503.6620, L100.0100, L501.4020 ####[facility] [address] [place], [address] EST GFR - AA 33 mL/min Low >60 [facility] Comment on above: Order Comment: 'TROP ' Serial specimen #1, #2 or #3: 1 Result Comment: Afri can [place]an GFR Calc Performed By: #### L 500.4050, L503.6620, L100.0100, L501.4020 ####[facility] [address] [place], [address] GAP 5 Normal 5-15 [facility] Comment on above: Order Comment: 'TROP ' Serial specimen #1, #2 or #3: 1 Performed By: #### L 500.4050, L503.6620, L100.0100, L501.4020 ####[facility] [address] [place], [address] GFR/1.73 sq M.predicted among non-blacks MDRD (S/P/Bld) [Vol rate/Area] 27 mL/min/{1.73_m2} Low >60 [facility] Comment on above: Order Comment: 'TROP ' Serial specimen #1, #2 or #3: 1 Result Comment: Non- GFR Calc Performed By: #### L 500.4050, L503.6620, L100.0100, L501.4020 ####[facility] [address] [place], [address] Globulin (S) [Mass/Vol] 3.6 g/dL Normal 2.2-4.2 [facility] Comment on above: Order Comment: 'TROP ' Serial specimen #1, #2 or #3: 1 Performed By: #### L 500.4050, L503.6620, L100.0100, L501.4020 ####[facility] [address] [place], [address] Glucose [Mass/Vol] 87 mg/dL Normal 74-106 [facility] Comment on above: Order Comment: 'TROP ' Serial specimen #1, #2 or #3: 1 Performed By: #### L 500.4050, L503.6620, L100.0100, L501.4020 ####[facility] [address] [place], [address] Potassium [Moles/Vol] 4.8 mmol/L Normal 3.5-5.1 [facility] Comment on above: Order Comment: 'TROP ' Serial specimen #1, #2 or #3: 1 Performed By: #### L 500.4050, L503.6620, L100.0100, L501.4020 ####[facility] [address] [place], [address] Sodium [Moles/Vol] 145 mmol/L Normal 136-145 [facility] Comment on above: Order Comment: 'TROP ' Serial specimen #1, #2 or #3: 1 Performed By: #### L 500.4050, L503.6620, L100.0100, L501.4020 ####[facility] [address] [place], [address] T PROT 6.7 g/dL Normal 6.4-8.2 [facility] Comment on above: Order Comment: 'TROP ' Serial specimen #1, #2 or #3: 1 Performed By: #### L 500.4050, L503.6620, L100.0100, L501.4020 ####[facility] [address] [place], [address] Urea nitrogen [Mass/Vol] 58 mg/dL High 7-18 [facility] Comment on above: Order Comment: 'TROP ' Serial specimen #1, #2 or #3: 1 Performed By: #### L 500.4050, L503.6620, L100.0100, L501.4020 ####[facility] [address] [place], [address] Emergency Department Summary on 11-14-2023 Emergency Department Summary Normal [facility] H AND P Exam - Hospitaliston 11-14-2023 H&P Exam - Hospitalist Normal [facility] L501.4020on 11-14-2023 TROPONIN-I HS 123 pg/mL Invalid Interpretation Code 3.0-78.0 [facility] Comment on above: Order Comment: 'TROP ' Serial specimen #1, #2 or #3: 1 Result Comment: Sara saleh Note: New Test Units and Gender Specific Reference Ranges. For more information see Policy Stat Procedure Burt High Sensitivity Troponin (TNIH) and attachments. Performed By: #### L 500.4050, L503.6620, L100.0100, L501.4020 ####[facility] [address] [place], [address] CBC W/Diff, Automatedon 10-11 Absolute Lymph 1.30 X10 3/uL Normal 0.83-4.51 [facility] Comment on above: Performed By: #### L 100.0100, L500.4050, L500.4100, L501.9985 ####[facility] [address] [place], [address] Absolute Neut 4.8 X10 3/uL Normal 2.0-7.7 [facility] Comment on above: Performed By: #### L 100.0100, L500.4050, L500.4100, L501.9985 ####[facility] [address] [place], [address] Basophils/100 WBC (Bld) 0.4 % Normal 0-1 [facility] Comment on above: Performed By: #### L 100.0100, L500.4050, L500.4100, L501.9985 ####[facility] [address] [place], [address] Eosinophils/100 WBC (Bld) 4.6 % Normal 0-5 [facility] Comment on above: Performed By: #### L 100.0100, L500.4050, L500.4100, L501.9985 ####[facility] [address] [place], [address] Erythrocyte distribution width (RBC) [Ratio] 13.0 % Normal 11.6-14.6 [facility] Comment on above: Performed By: #### L 100.0100, L500.4050, L500.4100, L501.9985 ####[facility] [address] [place], [address] Hematocrit (Bld) [Volume fraction] 27.3 % Low 40-54 [facility] Comment on above: Performed By: #### L 100.0100, L500.4050, L500.4100, L501.9985 ####[facility] [address] [place], [address] Hemoglobin (Bld) [Mass/Vol] 8.5 g/dL Low 13.0-16.5 [facility] Comment on above: Performed By: #### L 100.0100, L500.4050, L500.4100, L501.9985 ####[facility] [address] [place], [address] IG% 0.600 Normal 0.0-0.9 [facility] Comment on above: Result Comment: IG% - Immature Granulocytes (promyelocytes, myelocytes andmetamyelocytes) > 1% indicates that a LEFT SHIFT is Present. Performed By: #### L 100.0100, L500.4050, L500.4100, L501.9985 ####[facility] [address] [place], [address] Lymphocytes/100 WBC (Bld) 18.7 % Low 19-41 [facility] Comment on above: Performed By: #### L 100.0100, L500.4050, L500.4100, L501.9985 ####[facility] [address] [place], [address] MCH (RBC) [Entitic mass] 29.3 pg Normal 27.0-32.0 [facility] Comment on above: Performed By: #### L 100.0100, L500.4050, L500.4100, L501.9985 ####[facility] [address] [place], [address] MCHC (RBC) [Mass/Vol] 31.1 g/dL Low 32-36 [facility] Comment on above: Performed By: #### L 100.0100, L500.4050, L500.4100, L501.9985 ####[facility] [address] [place], [address] MCV (RBC) [Entitic vol] 94.1 fL High 80-94 [facility] Comment on above: Performed By: #### L 100.0100, L500.4050, L500.4100, L501.9985 ####[facility] [address] [place], [address] Monocytes/100 WBC (Bld) 7.2 % Normal 0-10 [facility] Comment on above: Performed By: #### L 100.0100, L500.4050, L500.4100, L501.9985 ####[facility] [address] [place], [address] Neutrophils/100 WBC (Bld) 68.5 % Normal 47-70 [facility] Comment on above: Performed By: #### L 100.0100, L500.4050, L500.4100, L501.9985 ####[facility] [address] [place], [address] Nucleated RBC (Bld) [#/Vol] 0 10*3/uL Normal 0-5 [facility] Comment on above: Performed By: #### L 100.0100, L500.4050, L500.4100, L501.9985 ####[facility] [address] [place], [address] Platelet mean volume (Bld) [Entitic vol] 11.5 fL Normal 6.2-12.0 [facility] Comment on above: Performed By: #### L 100.0100, L500.4050, L500.4100, L501.9985 ####[facility] [address] [place], [address] Platelets (Bld) [#/Vol] 116 10*3/uL Low 150-450 [facility] Comment on above: Performed By: #### L 100.0100, L500.4050, L500.4100, L501.9985 ####[facility] [address] [place], [address] RBC (Bld) [#/Vol] 2.90 10*6/uL Low 4.6-6.2 [facility] Comment on above: Performed By: #### L 100.0100, L500.4050, L500.4100, L501.9985 ####[facility] [address] [place], [address] RDW SD 44.3 fl High 35.1-43.9 [facility] Comment on above: Performed By: #### L 100.0100, L500.4050, L500.4100, L501.9985 ####[facility] [address] [place], [address] WBC (Bld) [#/Vol] 7.0 10*3/uL Normal 4.4-11.0 [facility] Comment on above: Performed By: #### L 100.0100, L500.4050, L500.4100, L501.9985 ####[facility] [address] [place], [address] Comprehensive Metabolic [facility] ilon 11-07-2023 Albumin [Mass/Vol] 3.1 g/dL Low 3.2-5.0 [facility] Comment on above: Performed By: #### L 100.0100, L500.4050, L500.4100, L501.9985 ####[facility] [address] [place], [address] Albumin/Globulin [Mass ratio] 0.9 {ratio} Normal 0.9-2.4 [facility] Comment on above: Performed By: #### L 100.0100, L500.4050, L500.4100, L501.9985 ####[facility] [address] [place], [address] ALK P 70 U/L Normal 45-117 [facility] Comment on above: Performed By: #### L 100.0100, L500.4050, L500.4100, L501.9985 ####[facility] [address] [place], [address] ALT [Catalytic activity/Vol] 10 U/L Low 16-61 [facility] Comment on above: Performed By: #### L 100.0100, L500.4050, L500.4100, L501.9985 ####[facility] [address], [address] AST [Catalytic activity/Vol] 15 U/L Normal 15-37 [facility] Comment on above: Performed By: #### L 100.0100, L500.4050, L500.4100, L501.9985 ####[facility] [address], [address] Bilirubin [Mass/Vol] 0.40 mg/dL Normal 0.20-1.00 [facility] Comment on above: Result Comment: For patients on eltrombopag therapy, use of Dimension Burt TBIL is not recommended. Performed By: #### L 100.0100, L500.4050, L500.4100, L501.9985 ####[facility] [address] [place], [address] BUN/CRE 29.8 RATIO High 10-20 [facility] Comment on above: Performed By: #### L 100.0100, L500.4050, L500.4100, L501.9985 ####[facility] [address] [place], [address] CA,Total 8.5 mg/dL Normal 8.5-10.1 [facility] Comment on above: Performed By: #### L 100.0100, L500.4050, L500.4100, L501.9985 ####[facility] [address] [place], [address] Chloride [Moles/Vol] 110 mmol/L High 98-107 [facility] Comment on above: Performed By: #### L 100.0100, L500.4050, L500.4100, L501.9985 ####[facility] [address] [place], [address] CO2 [Moles/Vol] 27.0 mmol/L Normal 21.0-32.0 [facility] Comment on above: Performed By: #### L 100.0100, L500.4050, L500.4100, L501.9985 ####[facility] [address] [place], [address] Creatinine [Mass/Vol] 1.98 mg/dL High 0.70-1.30 [facility] Comment on above: Result Comment: The validity of the calculated GFR GFRAA in patients over70 years has not been determined. Clinical correlation isessential. Performed By: #### L 100.0100, L500.4050, L500.4100, L501.9985 ####[facility] [address] [place], [address] EST GFR - AA 42 mL/min Low >60 [facility] Comment on above: Result Comment: Afri can [place]an GFR Calc Performed By: #### L 100.0100, L500.4050, L500.4100, L501.9985 ####[facility] [address] [place], [address] GAP 8 Normal 5-15 [facility] Comment on above: Performed By: #### L 100.0100, L500.4050, L500.4100, L501.9985 ####[facility] [address] [place], [address] GFR/1.73 sq M.predicted among non-blacks MDRD (S/P/Bld) [Vol rate/Area] 34 mL/min/{1.73_m2} Low >60 [facility] Comment on above: Result Comment: Non- GFR Calc Performed By: #### L 100.0100, L500.4050, L500.4100, L501.9985 ####[facility] [address] [place], [address] Globulin (S) [Mass/Vol] 3.6 g/dL Normal 2.2-4.2 [facility] Comment on above: Performed By: #### L 100.0100, L500.4050, L500.4100, L501.9985 ####[facility] [address] [place], [address] Glucose [Mass/Vol] 133 mg/dL High 74-106 [facility] Comment on above: Result Comment: Fast ing Glucose result greater than or equal to 126 mg/dLsuggests DIABETES MELLITUS per A.D.A. criteria. Performed By: #### L 100.0100, L500.4050, L500.4100, L501.9985 ####[facility] [address] [place], [address] Potassium [Moles/Vol] 4.5 mmol/L Normal 3.5-5.1 [facility] Comment on above: Performed By: #### L 100.0100, L500.4050, L500.4100, L501.9985 ####[facility] [address] [place], [address] Sodium [Moles/Vol] 145 mmol/L Normal 136-145 [facility] Comment on above: Performed By: #### L 100.0100, L500.4050, L500.4100, L501.9985 ####[facility] [address] [place], [address] T PROT 6.7 g/dL Normal 6.4-8.2 [facility] Comment on above: Performed By: #### L 100.0100, L500.4050, L500.4100, L501.9985 ####[facility] [address] [place], [address] Urea nitrogen [Mass/Vol] 59 mg/dL High 7-18 [facility] Comment on above: Performed By: #### L 100.0100, L500.4050, L500.4100, L501.9985 ####[facility] [address] [place], [address] Hemoglobin A1con 11-07-2023 HbA1c (Bld) [Mass fraction] 6.0 % High 3.8-5.6 [facility] Comment on above: Result Comment: Norm al < 5.7 % Prediabetic 5.7 - 6.4 % Diabetic >or= 6.5 % Please note range changes. Performed By: #### L 100.0100, L500.4050, L500.4100, L501.9985 ####[facility] [address] [place], [address] Lipid Profileon 11-07-2023 Cholesterol [Mass/Vol] 151 mg/dL Normal 200 [facility] Comment on above: Result Comment: <200 mg/dL Desirable 200-240 mg/dL Borderline >240 mg/dL High Risk Performed By: #### L 100.0100, L500.4050, L500.4100, L501.9985 ####[facility] [address] [place], [address] Cholesterol in HDL [Mass/Vol] 36 mg/dL Low [facility] Comment on above: Result Comment: The drugs N-Acetylcysteine and Metamizole may falselydepress this assay. Reference Range HDL <40 mg/dL Low HDL Cholesterol HDL >or= 60 mg/dL High HDL Cholesterol Performed By: #### L 100.0100, L500.4050, L500.4100, L501.9985 ####[facility] [address] [place], [address] Cholesterol in LDL [Mass/Vol] 90 mg/dL Normal 0-130 [facility] Comment on above: Performed By: #### L 100.0100, L500.4050, L500.4100, L501.9985 ####[facility] [address] [place], [address] Cholesterol in VLDL [Mass/Vol] 25 mg/dL Normal 5-40 [facility] Comment on above: Performed By: #### L 100.0100, L500.4050, L500.4100, L501.9985 ####[facility] [address] [place], [address] Triglyceride [Mass/Vol] 127 mg/dL Normal [facility] Comment on above: Result Comment: The drugs N-Acetylcysteine and Metamizole may falselydepress this assay.Serum Triglycerides Reference Interval Normal <150 mg/dL Borderline high 150 - 199 mg/dL High 200 - 499 mg/dL Very High > or = 500 mg/dL Performed By: #### L 100.0100, L500.4050, L500.4100, L501.9985 ####[facility] [address] [place], [address] .Auto Diffon 08-17-2023 Basophil, Absolute 0.0 10 3/mcL Normal 0.0-0.2 [facility] ([place]) Comment on above: Performed By: #### B 12 ####[place] [address]#### TSH, PBNP, CMP, ANEU, ADIFF, CBC, GFR, FE ####[address] [place], [place] [address] Basophils/100 WBC (Bld) 0.6 % Normal 0.0-2.5 A [facility] ([place]) Comment on above: Performed By: #### B 12 ####[place] [address]#### TSH, PBNP, CMP, ANEU, ADIFF, CBC, GFR, FE ####Katielilibeth [address] [place], [place] [address] Eosinophil, Absolute 0.2 10 3/mcL Normal 0.0-0.4 [facility] ([place]) Comment on above: Performed By: #### B 12 ####[place] [address]#### TSH, PBNP, CMP, ANEU, ADIFF, CBC, GFR, FE ####[address] [place], [place] [address] Eosinophils/100 WBC (Bld) 3.1 % Normal 0.0-7.0 Formerly [facility] ([place]) Comment on above: Performed By: #### B 12 ####[place] [address]#### TSH, PBNP, CMP, ANEU, ADIFF, CBC, GFR, FE ####[address] [address] Lymphocyte, Absolute 1.1 10 3/mcL Normal 0.8-3.9 [facility] ([place]) Comment on above: Performed By: #### B 12 ####[place] [address]#### TSH, PBNP, CMP, ANEU, ADIFF, CBC, GFR, FE ####[address] [place], [place] [address] Lymphocytes/100 WBC (Bld) 20.8 % Normal 10.0-50.0 Formerly [facility] ([place]) Comment on above: Performed By: #### B 12 ####[place] [address]#### TSH, PBNP, CMP, ANEU, ADIFF, CBC, GFR, FE ####[address] [place], [place] [address] Monocyte, Absolute 0.4 10 3/mcL Normal 0.2-1.0 [facility]ly [facility] ([place]) Comment on above: Performed By: #### B 12 ####[place] [address]#### TSH, PBNP, CMP, ANEU, ADIFF, CBC, GFR, FE ####[place] [address] [place], [place] [address] Monocytes/100 WBC (Bld) 6.9 % Normal 1.7-13.0 [facility] ([place]) Comment on above: Performed By: #### B 12 ####[place] [address]#### TSH, PBNP, CMP, ANEU, ADIFF, CBC, GFR, FE ####[place] X[address]af[address] [place], [place] [address] Neutrophils/100 WBC (Bld) 68.6 % Normal 37.0-80.0 [facility] ([place]) Comment on above: Performed By: #### B 12 ####[place] [address]#### TSH, PBNP, CMP, ANEU, ADIFF, CBC, GFR, FE ####Katie Rzloxcer[address] [place], [place] [address] .GFRon 08-17-2023 GFR 38 ml/min/1.73sqm Normal [facility] ([place] Comment on above: Result Comment: GFR Population [...] square meters Performed By: #### B 12 ####[place] [address]#### TSH, PBNP, CMP, ANEU, ADIFF, CBC, GFR, FE ####Katie Avmiyjmx7[address] [place], [place] [address] GFR Non- 31 ml/min/1.73sqm Normal [facility] ([place] Comment on above: Result Comment: GFR Population [...] square meters Performed By: #### B 12 ####[place] [id number]#### TSH, PBNP, CMP, ANEU, ADIFF, CBC, GFR, FE ####Katie [address] [place], [place] [address] .NEUABSon 08-17-2023 Neutrophil, Absolute 3.6 10 3/mcL Normal 2.9-6.2 [facility] ([place]) Comment on above: Performed By: #### B 12 ####[place] [address]#### TSH, PBNP, CMP, ANEU, ADIFF, CBC, GFR, FE ####Katie A[address]efsjg[address] [place], [place] [address] A1Con 08-17-2023 HbA1c (Bld) [Mass fraction] 5.9 % Normal 4.3-6.4 [facility] ([place] Comment on above: Performed By: #### A 1C ####Katie Dskymxmc824 [place], [place] [address] B12on 08-17-2023 Cobalamin (Vitamin B12) [Mass/Vol] 958 pg/mL High 211-911 [facility] ([place] Comment on above: Performed By: #### B 12 ####[place] [address]#### TSH, PBNP, CMP, ANEU, ADIFF, CBC, GFR, FE ####Katie Mtvjpfwg655 [place], [place] [address] CBCon 08-17-2023 Erythrocyte distribution width (RBC) [Ratio] 16.4 % High 11.5-14.5 [facility] ([place] Comment on above: Performed By: #### B 12 ####[place] [address]#### TSH, PBNP, CMP, ANEU, ADIFF, CBC, GFR, FE ####Katie Cyrjcpzd[address] [place], [place] [address] Hematocrit (Bld) [Volume fraction] 30.8 % Low 42.0-52.0 [facility] ([place] Comment on above: Performed By: #### B 12 ####[place] [address]#### TSH, PBNP, CMP, ANEU, ADIFF, CBC, GFR, FE ####Katie [address] [place], [place] [address] Hgb 10.2 G/dL Low 14.0-18.0 [facility] ([place] Comment on above: Performed By: #### B 12 ####[place] [address]#### TSH, PBNP, CMP, ANEU, ADIFF, CBC, GFR, FE ####Katie Lbylgtig[address] [place] [phone] MCH (RBC) [Entitic mass] 30.0 pg Normal 27.0-31.2 [facility] ([place] Comment on above: Performed By: #### B 12 ####[place] [address]#### TSH, PBNP, CMP, ANEU, ADIFF, CBC, GFR, FE ####[place] Tmumcnzv[address] [place] [phone] MCHC 33.0 G/dL Normal 31.8-35.4 [facility] ([place] Comment on above: Performed By: #### B 12 ####[place] [address]#### TSH, PBNP, CMP, ANEU, ADIFF, CBC, GFR, FE ####Katie Oepftngj[address] [place] [phone] MCV (RBC) [Entitic vol] 90.9 fL Normal 80.0-94.0 A [facility] ([place] Comment on above: Performed By: #### B 12 ####[place] [address]#### TSH, PBNP, CMP, ANEU, ADIFF, CBC, GFR, FE ####Katie Sxijgyby6[address] [place] [phone] Platelet 99 10 3/mcL Low 130-400 [facility] ([place] Comment on above: Performed By: #### B 12 ####[place] [address]#### TSH, PBNP, CMP, ANEU, ADIFF, CBC, GFR, FE ####Katie [address] [place], [place] [address] Platelet mean volume (Bld) [Entitic vol] 9.0 fL Normal 7.4-10.4 [facility] ([place] Comment on above: Performed By: #### B 12 ####[place] [address]#### TSH, PBNP, CMP, ANEU, ADIFF, CBC, GFR, FE ####Katie [place] [place] [phone] RBC 3.39 10 6/mcL Low 4.04-6.13 [facility] ([place] Comment on above: Performed By: #### B 12 ####[place] [address]#### TSH, PBNP, CMP, ANEU, ADIFF, CBC, GFR, FE ####Katie Mqnheeou623 [place] [phone] WBC 5.2 10 3/mcL Normal 4.6-10.8 [facility] ([place] Comment on above: Performed By: #### B 12 ####[place] [address]#### TSH, PBNP, CMP, ANEU, ADIFF, CBC, GFR, FE ####Katie Jukcsimb[address] [place], [place] [address] CMPon 08-17-2023 Albumin Level 3.5 G/dL Normal 3.4-4.8 [facility] ([place] Comment on above: Performed By: #### B 12 ####[place] [address]#### TSH, PBNP, CMP, ANEU, ADIFF, CBC, GFR, FE ####Katie Gjhmphgh[address] [place] [phone] Albumin/Globulin [Mass ratio] 1.0 {ratio} Low 1.1-2.5 [facility] ([place] Comment on above: Performed By: #### B 12 ####[place] [address]#### TSH, PBNP, CMP, ANEU, ADIFF, CBC, GFR, FE ####[place] [address]zdckcu[address] [place], [place] [address] ALP [Catalytic activity/Vol] 74 U/L Normal 40-135 [facility] ([place] Comment on above: Performed By: #### B 12 ####[place] [address]#### TSH, PBNP, CMP, ANEU, ADIFF, CBC, GFR, FE ####[facility] [place], [place] [address] ALT [Catalytic activity/Vol] 23 U/L Normal 16-63 [facility] ([place] Comment on above: Performed By: #### B 12 ####[place] [address]#### TSH, PBNP, CMP, ANEU, ADIFF, CBC, GFR, FE ####[facility] [place] [phone] AST [Catalytic activity/Vol] 15 U/L Normal 10-40 [facility] ([place] Comment on above: Performed By: #### B 12 ####[place] [address]#### TSH, PBNP, CMP, ANEU, ADIFF, CBC, GFR, FE ####[facility] [place], [place] [address] Bili Total 0.5 mg/dL Normal 0.2-1.0 [facility] ([place] Comment on above: Result Comment: Use of this assay is not recommended for patients undergoing treatment with eltrombopag due to the potential for falsely elevated results. Performed By: #### B 12 ####[place] [address]#### TSH, PBNP, CMP, ANEU, ADIFF, CBC, GFR, FE ####[facility] [place] [phone] BUN/Creatinine Ratio 31 ratio High 7-27 [facility] ([place] Comment on above: Performed By: #### B 12 ####[place] [address]#### TSH, PBNP, CMP, ANEU, ADIFF, CBC, GFR, FE ####[place] [address] [place], [place] [address] Calcium [Mass/Vol] 8.9 mg/dL Normal 8.4-10.2 [facility] ([place] Comment on above: Performed By: #### B 12 ####[place] [address]#### TSH, PBNP, CMP, ANEU, ADIFF, CBC, GFR, FE ####[facility] [place], [place] [address] Chloride [Moles/Vol] 109 mmol/L High 98-107 [facility] ([place] Comment on above: Performed By: #### B 12 ####[place] [address]#### TSH, PBNP, CMP, ANEU, ADIFF, CBC, GFR, FE ####[facility] [place] [address] CO2 [Moles/Vol] 28 mmol/L Normal 23-31 [facility] ([place] Comment on above: Performed By: #### B 12 ####[place] [address]#### TSH, PBNP, CMP, ANEU, ADIFF, CBC, GFR, FE ####[facility] [place], [place] [address] Creatinine [Mass/Vol] 2.03 mg/dL High 0.70-1.30 [facility] ([place]) Comment on above: Performed By: #### B 12 ####[place] [address]#### TSH, PBNP, CMP, ANEU, ADIFF, CBC, GFR, FE ####[facility] [place] [phone] Electrolyte Balance 10.0 mEq/L Normal 4.0-15.0 [facility] ([place]) Comment on above: Performed By: #### B 12 ####[place] [address]#### TSH, PBNP, CMP, ANEU, ADIFF, CBC, GFR, FE ####[place] Bhf[address] [place], [place] [address] Globulin 3.5 G/dL Normal [facility] ([place] Comment on above: Performed By: #### B 12 ####[place] [address]#### TSH, PBNP, CMP, ANEU, ADIFF, CBC, GFR, FE ####Katie Lmxussyt[address] [place], [place] [address] Glucose [Mass/Vol] 107 mg/dL Normal 83-110 [facility] ([place]) Comment on above: Performed By: #### B 12 ####[place] [address]#### TSH, PBNP, CMP, ANEU, ADIFF, CBC, GFR, FE ####[place] Pmpvhcik[address] [place], [place] [address] Potassium [Moles/Vol] 4.5 mmol/L Normal 3.5-5.1 [facility] ([place]) Comment on above: Performed By: #### B 12 ####[place] [address]#### TSH, PBNP, CMP, ANEU, ADIFF, CBC, GFR, FE ####Katie Wwmqoqmb[address] [place], [place] [address] Sodium [Moles/Vol] 147 mmol/L High 136-145 [facility] ([place]) Comment on above: Performed By: #### B 12 ####[place] [address]#### TSH, PBNP, CMP, ANEU, ADIFF, CBC, GFR, FE ####[place] [address] [place], [place] [address] Total Protein 7.0 G/dL Normal 6.4-8.2 [facility] ([place] Comment on above: Performed By: #### B 12 ####[place] [address]#### TSH, PBNP, CMP, ANEU, ADIFF, CBC, GFR, FE ####Katie Ufwrcktw[address] [place], [place] [address] Urea nitrogen [Mass/Vol] 62 mg/dL High 7-18 [facility] ([place] Comment on above: Performed By: #### B 12 ####[address] [address]#### TSH, PBNP, CMP, ANEU, ADIFF, CBC, GFR, FE ####Katie Pswnmgcm615 [place], [place] [address] FEon 08-17-2023 Iron [Mass/Vol] 97 ug/dL Normal 65-175 [facility] ([place]) Comment on above: Performed By: #### B 12 ####[place] [id number]#### TSH, PBNP, CMP, ANEU, ADIFF, CBC, GFR, FE ####Katie [place] [place], [place] [address] LABORATORYOrdered By: SYSTEM SYSTEM on 08-17-2023 HbA1c [...] B (Bld) [Mass/Vol] 1234 pg/mL High 0-450 [facility] ([place]) Comment on above: Result Comment: NT-p roBNP results of less than 300 pg/mL effectivelyrules out acute congestive heart failure with 99% negative predictive value. Performed By: #### B 12 ####[address] [address]#### TSH, PBNP, CMP, ANEU, ADIFF, CBC, GFR, FE ####[facility] [place], [place] [address] TSHon 08-17-2023 TSH Qn 2.84 m[IU]/L Normal 0.36-3.74 [facility] ([place]) Comment on above: Performed By: #### B 12 ####[address] [address]#### TSH, PBNP, CMP, ANEU, ADIFF, CBC, GFR, FE ####[facility] [place], [place] [address] .Auto Diffon 07-03-2023 Basophil, Absolute 0.0 10 3/mcL Normal 0.0-0.2 [facility] ([place]) Comment on above: Performed By: #### A DIFF, GFR, CBC, PBNP, ANEU, CMP, RETO ####Katie [address]ogb[address] [place], [place] [address] Basophils/100 WBC (Bld) 0.5 % Normal 0.0-2.5 [facility] ([place]) Comment on above: Performed By: #### A DIFF, GFR, CBC, PBNP, ANEU, CMP, RETO ####Katie [address] [place], [place] [address] Eosinophil, Absolute 0.2 10 3/mcL Normal 0.0-0.4 [facility] ([place]) Comment on above: Performed By: #### A DIFF, GFR, CBC, PBNP, ANEU, CMP, RETO ####Katie Fhswaggn269 [place], [place] [address] Eosinophils/100 WBC (Bld) 3.6 % Normal 0.0-7.0 [facility] ([place] Comment on above: Performed By: #### A DIFF, GFR, CBC, PBNP, ANEU, CMP, RETO ####Katie Gyjh[address] [place], [place] [address] Lymphocyte, Absolute 1.4 10 3/mcL Normal 0.8-3.9 [facility] ([place]) Comment on above: Performed By: #### A DIFF, GFR, CBC, PBNP, ANEU, CMP, RETO ####Katie Buck[address] [place], [place] [address] Lymphocytes/100 WBC (Bld) 26.5 % Normal 10.0-50.0 [facility] ([place] Comment on above: Performed By: #### A DIFF, GFR, CBC, PBNP, ANEU, CMP, RETO ####Katie Tjaxqggj[address] [place], [place] [address] Monocyte, Absolute 0.4 10 3/mcL Normal 0.2-1.0 [facility] ([place] Comment on above: Performed By: #### A DIFF, GFR, CBC, PBNP, ANEU, CMP, RETO ####Katie Torres[address] [place], [place] [address] Monocytes/100 WBC (Bld) 8.3 % Normal 1.7-13.0 A [facility] ([place] Comment on above: Performed By: #### A DIFF, GFR, CBC, PBNP, ANEU, CMP, RETO ####Katie Torres[address] [place], [place] [address] Neutrophils/100 WBC (Bld) 61.1 % Normal 37.0-80.0 [facility] ([place] Comment on above: Performed By: #### A DIFF, GFR, CBC, PBNP, ANEU, CMP, RETO ####Katie [address] [place], [place] [address] .GFRon 07-03-2023 GFR 35 ml/min/1.73sqm Normal [facility] ([place] Comment on above: Result Comment: GFR Population [...] GFR, CBC, PBNP, ANEU, CMP, RETO ####Katiezac AdamesTdygpelr253 [place], [place] [address] GFR Non- 29 ml/min/1.73sqm Normal [facility] ([place] Comment on above: Result Comment: GFR Population [...] GFR, CBC, PBNP, ANEU, CMP, RETO ####Katie Btas[address]ub[address] [place], [place] [address] .NEUABSon 07-03-2023 Neutrophil, Absolute 3.2 10 3/mcL Normal 2.9-6.2 [facility] ([place] Comment on above: Performed By: #### A DIFF, GFR, CBC, PBNP, ANEU, CMP, RETO ####Katie [place] [place], [place] [address] CBCon 07-03-2023 Erythrocyte distribution width (RBC) [Ratio] 15.5 % High 11.5-14.5 [facility] ([place] Comment on above: Performed By: #### A DIFF, GFR, CBC, PBNP, ANEU, CMP, RETO ####Katie [place] [place], [place] [address] Hematocrit (Bld) [Volume fraction] 26.2 % Low 42.0-52.0 [facility] ([place] Comment on above: Performed By: #### A DIFF, GFR, CBC, PBNP, ANEU, CMP, RETO ####Katie Gygw[address]bc9[address] [place], [place] [address] Hgb 8.8 G/dL Low 14.0-18.0 [facility] ([place] Comment on above: Performed By: #### A DIFF, GFR, CBC, PBNP, ANEU, CMP, RETO ####Katie Imyfqjau[address] [place], [place] [address] MCH (RBC) [Entitic mass] 29.0 pg Normal 27.0-31.2 [facility] ([place] Comment on above: Performed By: #### A DIFF, GFR, CBC, PBNP, ANEU, CMP, RETO ####Katie Ojags[address] [place], [place] [address] MCHC 33.6 G/dL Normal 31.8-35.4 [facility] ([place] Comment on above: Performed By: #### A DIFF, GFR, CBC, PBNP, ANEU, CMP, RETO ####Katiezac AdamesPdxqhttr[address] [place], [place] [address] MCV (RBC) [Entitic vol] 86.4 fL Normal 80.0-94.0 A [facility] ([place] Comment on above: Performed By: #### A DIFF, GFR, CBC, PBNP, ANEU, CMP, RETO ####Katie [place] [place], [place] [address] Platelet 107 10 3/mcL Low 130-400 [facility] ([place] Comment on above: Performed By: #### A DIFF, GFR, CBC, PBNP, ANEU, CMP, RETO ####Katie [place] [place], [place] [address] Platelet mean volume (Bld) [Entitic vol] 9.4 fL Normal 7.4-10.4 [facility] ([place] Comment on above: Performed By: #### A DIFF, GFR, CBC, PBNP, ANEU, CMP, RETO ####Katie [place] [place], [place] [address] RBC 3.03 10 6/mcL Low 4.04-6.13 [facility] ([place] Comment on above: Performed By: #### A DIFF, GFR, CBC, PBNP, ANEU, CMP, RETO ####Katiezac AdamesUduojdux[address] [place], [place] [address] WBC 5.3 10 3/mcL Normal 4.6-10.8 [facility] ([place] Comment on above: Performed By: #### A DIFF, GFR, CBC, PBNP, ANEU, CMP, RETO ####Katie [place] [place], [place] [address] CMPon 07-03-2023 Albumin Level 3.3 G/dL Low 3.4-4.8 [facility] ([place] Comment on above: Performed By: #### A DIFF, GFR, CBC, PBNP, ANEU, CMP, RETO ####Katie [place] [place], [place] [address] Albumin/Globulin [Mass ratio] 1.1 {ratio} Normal 1.1-2.5 [facility] ([place] Comment on above: Performed By: #### A DIFF, GFR, CBC, PBNP, ANEU, CMP, RETO ####Katie [place] [place], [place] [address] ALP [Catalytic activity/Vol] 76 U/L Normal 40-135 [facility] ([place] Comment on above: Performed By: #### A DIFF, GFR, CBC, PBNP, ANEU, CMP, RETO ####Katie Dqpfxslb397 [place], [place] [address] ALT [Catalytic activity/Vol] 27 U/L Normal 16-63 [facility] ([place] Comment on above: Performed By: #### A DIFF, GFR, CBC, PBNP, ANEU, CMP, RETO ####Katie [address]zecet[address] [place], [place] [address] AST [Catalytic activity/Vol] 17 U/L Normal 10-40 [facility] ([place] Comment on above: Performed By: #### A DIFF, GFR, CBC, PBNP, ANEU, CMP, RETO ####Katie Hvwnjhjt[address] [place], [place] [address] Bili Total 0.5 mg/dL Normal 0.2-1.0 [facility] ([place] Comment on above: Result Comment: Use of this assay is not recommended for patients undergoing treatment with eltrombopag due to the potential for falsely elevated results. Performed By: #### A DIFF, GFR, CBC, PBNP, ANEU, CMP, RETO ####Katie [place] [place], [place] [address] BUN/Creatinine Ratio 27 ratio Normal 7-27 [facility] ([place] Comment on above: Performed By: #### A DIFF, GFR, CBC, PBNP, ANEU, CMP, RETO ####Katie [place] [place], [place] [address] Calcium [Mass/Vol] 8.4 mg/dL Normal 8.4-10.2 [facility] ([place] Comment on above: Performed By: #### A DIFF, GFR, CBC, PBNP, ANEU, CMP, RETO ####Katie [place] [place], [place] [address] Chloride [Moles/Vol] 108 mmol/L High 98-107 [facility] ([place] Comment on above: Performed By: #### A DIFF, GFR, CBC, PBNP, ANEU, CMP, RETO ####Katie [place] [place], [place] [address] CO2 [Moles/Vol] 30 mmol/L Normal 23-31 [facility] ([place] Comment on above: Performed By: #### A DIFF, GFR, CBC, PBNP, ANEU, CMP, RETO ####Katie Kyimovcr[address] [place], [place] [address] Creatinine [Mass/Vol] 2.16 mg/dL High 0.70-1.30 [facility] ([place]) Comment on above: Performed By: #### A DIFF, GFR, CBC, PBNP, ANEU, CMP, RETO ####Katie [place] [place], [place] [address] Electrolyte Balance 8.0 mEq/L Normal 4.0-15.0 [facility] ([place]) Comment on above: Performed By: #### A DIFF, GFR, CBC, PBNP, ANEU, CMP, RETO ####Katie Hfcbznii[address] [place], [place] [address] Globulin 2.9 G/dL Normal [facility] ([place] Comment on above: Performed By: #### A DIFF, GFR, CBC, PBNP, ANEU, CMP, RETO ####Katie [place] [place], [place] [address] Glucose [Mass/Vol] 153 mg/dL High 83-110 [facility] ([place] Comment on above: Performed By: #### A DIFF, GFR, CBC, PBNP, ANEU, CMP, RETO ####Katie Yvpgmrzb[address] [place], [place] [address] Potassium [Moles/Vol] 4.1 mmol/L Normal 3.5-5.1 [facility] ([place] Comment on above: Performed By: #### A DIFF, GFR, CBC, PBNP, ANEU, CMP, RETO ####Katie Gtl[address]uyz5[address] [place], [place] [address] Sodium [Moles/Vol] 146 mmol/L High 136-145 [facility] ([place] Comment on above: Performed By: #### A DIFF, GFR, CBC, PBNP, ANEU, CMP, RETO ####Katie Jztkjcgn[address] [place], [place] [address] Total Protein 6.2 G/dL Low 6.4-8.2 [facility] ([place] Comment on above: Performed By: #### A DIFF, GFR, CBC, PBNP, ANEU, CMP, RETO ####Katie Plutx[address] [place], [place] [address] Urea nitrogen [Mass/Vol] 58 mg/dL High 7-18 [facility] ([place] Comment on above: Performed By: #### A DIFF, GFR, CBC, PBNP, ANEU, CMP, RETO ####Katie [place] [place], [place] [address] PBNPon 07-03-2023 Natriuretic peptide B (Bld) [Mass/Vol] 1518 pg/mL High 0-450 [facility] ([place] Comment on above: Result Comment: NT-p roBNP results of less than 300 pg/mL effectivelyrules out acute congestive heart failure with 99% negative predictive value. Performed By: #### A DIFF, GFR, CBC, PBNP, ANEU, CMP, RETO ####Katie Jfogacru[address] [place], [place] [address] RETO (AO)on 07-03-2023 Immature Retic Fraction 0.51 IRF High 0.20-0.46 [facility] ([place]) Comment on above: Performed By: #### A DIFF, GFR, CBC, PBNP, ANEU, CMP, RETO ####Katie Cngtewyy[address] [place], [place] [address] Reticulocytes, Auto 1.8 % Normal 0.2-2.3 [facility] ([place]) Comment on above: Performed By: #### A DIFF, GFR, CBC, PBNP, ANEU, CMP, RETO ###Keyshawn [address]jt[address] [place], [place] [address] Absolute lymphocyte countOrd ered By: Dalton Forrest on 06-27-2023 Lymphocytes Auto (Unsp spec) [#/Vol] 1.13 10*3/uL 0.83-4.51 [facility] Automated lymphocyte count a s percentage of total leukocytesOrdered By: Dalton Forrest on 06-27-2023 Lymphocytes/100 WBC Auto (Unsp spec) 23.7 % 19-41 [facility] Basophil percentageOrdered B y: Dalton Forrest on 06-27-2023 Basophil percentage 0 SEEN /hpf 0-5 [facility] Basophils/100 WBC (Bld) 0.4 % 0-1 [facility] Bilirubin [Mass/Vol] 0.70 mg/dL 0.20-1.00 [facility] Comment on above: For patients on eltr ombopag therapy, use of Dimension Burt TBIL is not recommended. Chloride [Moles/Vol] 107 mmol/L 98-107 [facility] Eosinophils/100 WBC (Bld) 3.8 % 0-5 [facility] Glucose [Mass/Vol] 257 mg/dL 74-106 [facility] Comment on above: Glucose result great er than or equal to 200 mg/dLsuggests DIABETES MELLITUS per A.D.A. criteria. Hemoglobin (Bld) [Mass/Vol] 8.5 g/dL 13.0-16.5 [facility] Monocytes/100 WBC (Bld) 9.6 % 0-10 [facility] Neutrophils (Bld) [#/Vol] 3.0 10*3/uL 2.0-7.7 [facility] Neutrophils/100 WBC (Bld) 62.3 % 47-70 [facility] Potassium [Moles/Vol] 4.0 mmol/L 3.5-5.1 [facility] Protein [Mass/Vol] 6.7 g/dL 6.4-8.2 [facility] Sodium [Moles/Vol] 142 mmol/L 136-145 [facility] WBC (Bld) [#/Vol] 4.8 10*3/uL 4.4-11.0 [facility] Bilirubin Test strip Ql (U)O rdered By: Dalton Forrest on 06-27-2023 Bilirubin Ql (U) Negative Negative [facility] Blood platelet adequacy dete ction by light microscopyOrdered By: Dalton Forrest on 06-27-2023 Platelets LM Ql (Bld) SLT DEC ADEQ [facility] Determination of erythrocyte mean corpuscular volume (MCV)Ordered By: Dalton Forrest on 06-27-2023 MCV (RBC) [Entitic vol] 90.2 fL 80-94 [facility] Erythrocyte distribution wid th ratioOrdered By: Dalton Forrest on 06-27-2023 Erythrocyte distribution width (RBC) [Ratio] 14.3 % 11.6-14.6 [facility] Erythrocyte distribution wid th standard deviationOrdered By: Dalton Forrest on 06-27-2023 Erythrocyte distribution width (RBC) [Entitic vol] 47.0 fL 35.1-43.9 [facility] Hematocrit Auto (Bld) [Volum e fraction]Ordered By: Dalton Forrest on 06-27-2023 Hematocrit (Bld) [Volume fraction] 27.5 % 40-54 [facility] Immature granulocytes/100 WB C Auto (Bld)Ordered By: Dalton Forrest on 06-27-2023 Immature granulocytes/100 WBC (Bld) 0.200 % 0.0-0.9 [facility] Comment on above: IG% - Immature Granu locytes (promyelocytes, myelocytes and metamyelocytes) > 1% indicates that a LEFT SHIFT is Present. Ketones Test strip Ql (U)Ord ered By: Dalton Forrest on 06-27-2023 Ketones Ql (U) Negative Negative [facility] - Chemistry and C hemistry - challengeOrdered By: Dalton Forrest on 06-27-2023 Albumin/Globulin [Mass ratio] 0.8 {ratio} 0.9-2.4 [facility] ALP [Catalytic activity/Vol] 73 U/L 45-117 [facility] ALT [Catalytic activity/Vol] 37 U/L 16-61 [facility] CO2 [Moles/Vol] 30.0 mmol/L 21.0-32.0 [facility] Globulin (S) [Mass/Vol] 3.7 g/dL 2.2-4.2 [facility] Urea nitrogen/Creatinine [Mass ratio] 26.3 mg/mg 10-20 [facility] - Hematology and Cell countsOrdered By: Dalton Forrest on 06-27-2023 MCH (RBC) [Entitic mass] 27.9 pg 27.0-32.0 [facility] MCHC (RBC) [Mass/Vol] 30.9 g/dL 32-36 [facility] Nucleated RBC/100 WBC (Bld) [Ratio] 0 % 0-5 [facility] Platelet mean volume (Bld) [Entitic vol] 11.4 fL 6.2-12.0 [facility] Platelets (Bld) [#/Vol] 88 10*3/uL 150-450 [facility] Mucus LM Ql (Urine sed)Order ed By: Dalton Forrest on 06-27-2023 Mucus Ql (Urine sed) RARE /hpf [facility] Nitrite Test strip Ql (U)Ord ered By: Dalton Forrest on 06-27-2023 Nitrite Ql (U) Negative Negative [facility] No Panel InformationOrdered By: Dalton Forrest on 06-27-2023 Urine RBC 0 SEEN /hpf 0-5 [facility] Estimated GFR (MDRD) Amer 33 mL/min >60 [facility] Comment on above: GFR Calc Estimated GFR (MDRD) Non-Af Amer 27 mL/min >60 [facility] Comment on above: Non- GFR Calc Troponin I High Sensitivity 31 pg/mL 3.0-78.0 [facility] Comment on above: Please Note: New Arti t Units and Gender Specific Reference Ranges. For more information see Policy Stat Procedure [facility] High Sensitivity Troponin (TNIH) and attachments. Protein Test strip Ql (U)Ord ered By: Dalton Forrest on 06-27-2023 Protein Ql (U) 30 mg/dl Negative [facility] RBC Auto (Bld) [#/Vol]Ordere d By: Dalton Forrest on 06-27-2023 RBC (Bld) [#/Vol] 3.05 10*6/uL 4.6-6.2 [facility] Serum or plasma calcium elmira urement (mass/volume)Ordered By: Dalton Forrest on 06-27-2023 Calcium [Mass/Vol] 9.2 mg/dL 8.5-10.1 [facility] Serum or plasma creatinine m easurement (mass/volume)Ordered By: Dalton Forrest on 06-27-2023 Creatinine [Mass/Vol] 2.43 mg/dL 0.70-1.30 [facility] Comment on above: The validity of the calculated GFR & GFRAA in patients over 70 years has not been determined. Clinical correlation is essential. Serum or plasma urea nitroge n measurement (mass/volume)Ordered By: Dalton Forrest on 06-27-2023 Urea nitrogen [Mass/Vol] 64 mg/dL 7-18 [facility] Squamous epithelial cells de tection in urine sediment by light microscopyOrdered By: Dalton Forrest on 06-27-2023 Epithelial cells.squamous LM Ql (Urine sed) 0-5 SEEN /hpf 0-5 [facility] Thin prep Papanicolaou smear with manual screeningOrdered By: Dalton Forrest on 06-27-2023 Thin prep Papanicolaou smear with manual screening 3.0 g/dL 3.2-5.0 [facility] Thin prep Papanicolaou smear with manual screening 23 U/L 15-37 [facility] Thin prep Papanicolaou smear with manual screening 5 5-15 [facility] Urine blood detectionOrdered By: Dalton Forrest on 06-27-2023 RBC Ql (U) Negative Negative [facility] Urine clarityOrdered By: Sivan Forrest on 06-27-2023 Clarity (U) Clear Clear [facility] Urine color determinationOrd ered By: Dalton Forrest on 06-27-2023 Color (U) Yellow Yellow [facility] Urine glucose detectionOrder ed By: Dalton Forrest on 06-27-2023 Glucose Ql (U) 1000 mg/dl Normal [facility] Urine leukocyte esterase det ection by dipstickOrdered By: Dalton Forrest on 06-27-2023 Leukocyte esterase Test strip Ql (U) Negative Negative [facility] Urine pHOrdered By: Dalton buchanan on 06-27-2023 pH (U) 5.0 [pH] 5.0 - 8.0 [facility] Urine sediment bacteria coun t by microscopy (number/high power field)Ordered By: Dalton Forrest on 06-27-2023 Bacteria LM.HPF (Urine sed) [#/Area] 0 /[HPF] None Seen [facility] Urine specific gravity measu rementOrdered By: Dalton Forrest on 06-27-2023 Specific gravity (U) [Rel density] 1.015 1.002-1.030 [facility] Urine urobilinogen measureme ntOrdered By: Dalton Forrest on 06-27-2023 Urobilinogen Ql (U) Normal mg/dl Normal [facility] .Auto Diffon 06-11-2023 Basophil, Absolute 0.0 10 3/mcL Normal 0.0-0.3 [facility] ([place] Comment on above: Performed By: #### G FR, CBC, ANEU, BMP, ADIFF ####[address] [address] Basophils/100 WBC (Bld) 0.2 % Normal 0.0-2.5 A [facility] ([place] Comment on above: Performed By: #### G FR, CBC, ANEU, BMP, ADIFF ####[address] [address] Eosinophil, Absolute 0.1 10 3/mcL Normal 0.0-0.7 [facility] ([place]) Comment on above: Performed By: #### G FR, CBC, ANEU, BMP, ADIFF ####[address] [address] Eosinophils/100 WBC (Bld) 1.4 % Normal 0.0-6.0 [facility] ([place]) Comment on above: Performed By: #### G FR, CBC, ANEU, BMP, ADIFF ####[address] [address] Lymphocyte, Absolute 1.5 10 3/mcL Normal 0.9-4.3 [facility] ([place]) Comment on above: Performed By: #### G FR, CBC, ANEU, BMP, ADIFF ####[address] [address] Lymphocytes/100 WBC (Bld) 21.0 % Normal 20.0-40.0 [facility] ([place] Comment on above: Performed By: #### G FR, CBC, ANEU, BMP, ADIFF ####[address] [address] Monocyte, Absolute 0.4 10 3/mcL Normal 0.1-1.4 [facility] ([place] Comment on above: Performed By: #### G FR, CBC, ANEU, BMP, ADIFF ####[address] [address] Monocytes/100 WBC (Bld) 5.1 % Normal 2.0-13.0 [facility] ([place]) Comment on above: Performed By: #### G FR, CBC, ANEU, BMP, ADIFF ####[address] [address] Neutrophils/100 WBC (Bld) 72.3 % Normal 50.0-75.0 [facility] ([place] Comment on above: Performed By: #### G FR, CBC, ANEU, BMP, ADIFF ####[address] [address] .GFRon 06-11-2023 GFR 36 ml/min/1.73sqm Normal [facility] ([place] Comment on above: Result Comment: GFR Population [...] #### G FR, CBC, ANEU, BMP, ADIFF ####[address] [address] GFR Non- 29 ml/min/1.73sqm Normal [facility] ([place] Comment on above: Result Comment: GFR Population [...] #### G FR, CBC, ANEU, BMP, ADIFF ####[address] [address] .NEUABSon 06-11-2023 Neutrophil, Absolute 5.2 10 3/mcL Normal 2.3-8.1 [facility] ([place] Comment on above: Performed By: #### G FR, CBC, ANEU, BMP, ADIFF ####[address] [address] BMPon 06-11-2023 BUN/Creatinine Ratio 47.9 ratio High 10.0-22.0 [facility] ([place] Comment on above: Performed By: #### G FR, CBC, ANEU, BMP, ADIFF ####[address] [address] Calcium [Mass/Vol] 9.2 mg/dL Normal 8.7-10.4 [facility] ([place] Comment on above: Performed By: #### G FR, CBC, ANEU, BMP, ADIFF ####[address] [address] Chloride [Moles/Vol] 103 mmol/L Normal 98-110 [facility] ([place] Comment on above: Performed By: #### G FR, CBC, ANEU, BMP, ADIFF ####[address] [address] CO2 [Moles/Vol] 28 mmol/L Normal 22-32 [facility] ([place] Comment on above: Performed By: #### G FR, CBC, ANEU, BMP, ADIFF ####[address] [address] Creatinine [Mass/Vol] 2.15 mg/dL High 0.60-1.40 [facility] ([place]) Comment on above: Performed By: #### G FR, CBC, ANEU, BMP, ADIFF ####[address] [address] Electrolyte Balance 8.0 mEq/L Normal 4.0-15.0 [facility] ([place]) Comment on above: Performed By: #### G FR, CBC, ANEU, BMP, ADIFF ####[place] [address] Glucose [Mass/Vol] 135 mg/dL High 82-115 [facility] ([place] Comment on above: Performed By: #### G FR, CBC, ANEU, BMP, ADIFF ####[address] [address] Potassium [Moles/Vol] 4.7 mmol/L Normal 3.5-5.0 [facility] ([place] Comment on above: Performed By: #### G FR, CBC, ANEU, BMP, ADIFF ####[address] [address] Sodium [Moles/Vol] 139 mmol/L Normal 136-145 [facility] ([place] Comment on above: Performed By: #### G FR, CBC, ANEU, BMP, ADIFF ####[address] [address] Urea nitrogen [Mass/Vol] 103.0 mg/dL Critica lly abnormal 8.0-22.0 [facility] ([place] Comment on above: Performed By: #### G FR, CBC, ANEU, BMP, ADIFF ####[place] [address] CBCon 06-11-2023 Erythrocyte distribution width (RBC) [Ratio] 15.8 % High 11.5-15.5 [facility] ([place] Comment on above: Performed By: #### G FR, CBC, ANEU, BMP, ADIFF ####[place] [address] Hematocrit (Bld) [Volume fraction] 27.0 % Low 40.0-52.0 [facility] ([place] Comment on above: Performed By: #### G FR, CBC, ANEU, BMP, ADIFF ####[place] [address] Hgb 9.3 G/dL Low 13.0-17.5 [facility] ([place] Comment on above: Performed By: #### G FR, CBC, ANEU, BMP, ADIFF ####[place] [address] MCH (RBC) [Entitic mass] 29.7 pg Normal 27.0-33.0 [facility] ([place] Comment on above: Performed By: #### G FR, CBC, ANEU, BMP, ADIFF ####[place] [address] MCHC 34.4 G/dL Normal 32.0-36.0 [facility] ([place] Comment on above: Performed By: #### G FR, CBC, ANEU, BMP, ADIFF ####[place] [address] MCV (RBC) [Entitic vol] 86.5 fL Normal 81.0-100.0 A [facility] ([place] Comment on above: Performed By: #### G FR, CBC, ANEU, BMP, ADIFF ####[place] [address] Platelet 138 10 3/mcL Low 150-450 [facility] ([place] Comment on above: Performed By: #### G FR, CBC, ANEU, BMP, ADIFF ####[place] [address] [place] [address] Platelet mean volume (Bld) [Entitic vol] 8.9 fL Normal 6.4-10.5 [facility] ([place] Comment on above: Performed By: #### G FR, CBC, ANEU, BMP, ADIFF ####[facility] [place] [address] RBC 3.13 10 6/mcL Low 4.50-6.00 [facility] ([place] Comment on above: Performed By: #### G FR, CBC, ANEU, BMP, ADIFF ####[place] [id number] [place] [address] WBC 7.2 10 3/mcL Normal 4.5-10.8 [facility] ([place] Comment on above: Performed By: #### G FR, CBC, ANEU, BMP, ADIFF ####[place] [address] LABORATORYOrdered By: Kelly Romero on 06-11-2023 Glucose [Mass/Vol] 161 mg/dL High 82 - 115 mg/dL [facility] Work Phone: Glucose [Mass/Vol] 136 mg/dL High 82 - 115 mg/dL [facility] Work Phone: LABORATORYOrdered By: Katie Wilkins on 06-11-2023 Glucose [Mass/Vol] 136 mg/dL High 82 - 115 mg/dL [facility] Work Phone: LABORATORYOrdered By: SYSTEM [...] [Vol rate/Area] 36 ml/min/1.73sqm Invalid Interpretation Code [facility] Comment on above: Interpretive Data: [...] [Vol rate/Area] 29 ml/min/1.73sqm Invalid Interpretation Code [employer] [facility] Comment on above: Interpretive Data: [...] VIEWon 06-11-2023 XR CHEST 1 VIEW Normal [facility] ([place]) .Auto Diffon 06-10-2023 Basophil, Absolute 0.0 10 3/mcL Normal 0.0-0.3 [facility] ([place] Comment on above: Performed By: #### A DIFF, ANEU, PBNP, MG, GFR, CBC, BMP, PRO ####[address] [address] Basophils/100 WBC (Bld) 0.0 % Normal 0.0-2.5 A [facility] ([place] Comment on above: Performed By: #### A DIFF, ANEU, PBNP, MG, GFR, CBC, BMP, PRO ####[address] [address] Eosinophil, Absolute 0.0 10 3/mcL Normal 0.0-0.7 [facility] ([place]) Comment on above: Performed By: #### A DIFF, ANEU, PBNP, MG, GFR, CBC, BMP, PRO ####[address] [address] Eosinophils/100 WBC (Bld) 0.1 % Normal 0.0-6.0 [facility] ([place] Comment on above: Performed By: #### A DIFF, ANEU, PBNP, MG, GFR, CBC, BMP, PRO ####[address] [address] Lymphocyte, Absolute 0.9 10 3/mcL Normal 0.9-4.3 [facility] ([place] Comment on above: Performed By: #### A DIFF, ANEU, PBNP, MG, GFR, CBC, BMP, PRO ####[address] [address] Lymphocytes/100 WBC (Bld) 6.8 % Low 20.0-40.0 [facility] ([place] Comment on above: Performed By: #### A DIFF, ANEU, PBNP, MG, GFR, CBC, BMP, PRO ####[address] [address] Monocyte, Absolute 0.4 10 3/mcL Normal 0.1-1.4 [facility] ([place] Comment on above: Performed By: #### A DIFF, ANEU, PBNP, MG, GFR, CBC, BMP, PRO ####[address] [address] Monocytes/100 WBC (Bld) 3.2 % Normal 2.0-13.0 A [facility] ([place] Comment on above: Performed By: #### A DIFF, ANEU, PBNP, MG, GFR, CBC, BMP, PRO ####[address] [address] Neutrophils/100 WBC (Bld) 89.9 % High 50.0-75.0 [facility] ([place] Comment on above: Performed By: #### A DIFF, ANEU, PBNP, MG, GFR, CBC, BMP, PRO ####[address] [address] .GFRon 06-10-2023 GFR 40 ml/min/1.73sqm Normal [facility] ([place] Comment on above: Result Comment: GFR Population [...] ANEU, PBNP, MG, GFR, CBC, BMP, PRO ####[address] [address] GFR Non- 33 ml/min/1.73sqm Normal [facility] ([place] Comment on above: Result Comment: GFR Population [...] ANEU, PBNP, MG, GFR, CBC, BMP, PRO ####[place] [address] .NEUABSon 06-10-2023 Neutrophil, Absolute 12.4 10 3/mcL High 2.3-8.1 A [facility] ([place] Comment on above: Performed By: #### A DIFF, ANEU, PBNP, MG, GFR, CBC, BMP, PRO ####[place] [address] BMPon 06-10-2023 BUN/Creatinine Ratio 49.0 ratio High 10.0-22.0 [facility] ([place] Comment on above: Performed By: #### A DIFF, ANEU, PBNP, MG, GFR, CBC, BMP, PRO ####[address] [address] Calcium [Mass/Vol] 9.0 mg/dL Normal 8.7-10.4 [facility] ([place] Comment on above: Performed By: #### A DIFF, ANEU, PBNP, MG, GFR, CBC, BMP, PRO ####[place] [address] Chloride [Moles/Vol] 103 mmol/L Normal 98-110 [facility] ([place] Comment on above: Performed By: #### A DIFF, ANEU, PBNP, MG, GFR, CBC, BMP, PRO ####[place] [address] CO2 [Moles/Vol] 25 mmol/L Normal 22-32 [facility] ([place] Comment on above: Performed By: #### A DIFF, ANEU, PBNP, MG, GFR, CBC, BMP, PRO ####[address] [address] Creatinine [Mass/Vol] 1.96 mg/dL High 0.60-1.40 [facility] ([place]) Comment on above: Performed By: #### A DIFF, ANEU, PBNP, MG, GFR, CBC, BMP, PRO ####[address] [address] Electrolyte Balance 6.0 mEq/L Normal 4.0-15.0 [facility] ([place]) Comment on above: Performed By: #### A DIFF, ANEU, PBNP, MG, GFR, CBC, BMP, PRO ####[address] [address] Glucose [Mass/Vol] 212 mg/dL High 82-115 [facility] ([place] Comment on above: Performed By: #### A DIFF, ANEU, PBNP, MG, GFR, CBC, BMP, PRO ####[address] [address] Potassium [Moles/Vol] 4.6 mmol/L Normal 3.5-5.0 [facility] ([place]) Comment on above: Performed By: #### A DIFF, ANEU, PBNP, MG, GFR, CBC, BMP, PRO ####[address] [address] Sodium [Moles/Vol] 134 mmol/L Low 136-145 [facility] ([place] Comment on above: Performed By: #### A DIFF, ANEU, PBNP, MG, GFR, CBC, BMP, PRO ####[address] [address] Urea nitrogen [Mass/Vol] 96.0 mg/dL High 8.0-22.0 [facility] ([place] Comment on above: Performed By: #### A DIFF, ANEU, PBNP, MG, GFR, CBC, BMP, PRO ####[place] [address] CBCon 06-10-2023 Erythrocyte distribution width (RBC) [Ratio] 15.4 % Normal 11.5-15.5 [facility] ([place] Comment on above: Performed By: #### A DIFF, ANEU, PBNP, MG, GFR, CBC, BMP, PRO ####[place] [address] Hematocrit (Bld) [Volume fraction] 26.1 % Low 40.0-52.0 [facility] ([place] Comment on above: Performed By: #### A DIFF, ANEU, PBNP, MG, GFR, CBC, BMP, PRO ####[place] [address] Hgb 8.7 G/dL Low 13.0-17.5 [facility] ([place] Comment on above: Performed By: #### A DIFF, ANEU, PBNP, MG, GFR, CBC, BMP, PRO ####[place] [address] MCH (RBC) [Entitic mass] 28.8 pg Normal 27.0-33.0 [facility] ([place] Comment on above: Performed By: #### A DIFF, ANEU, PBNP, MG, GFR, CBC, BMP, PRO ####[place] [address] MCHC 33.3 G/dL Normal 32.0-36.0 [facility] ([place] Comment on above: Performed By: #### A DIFF, ANEU, PBNP, MG, GFR, CBC, BMP, PRO ####[place] [address] MCV (RBC) [Entitic vol] 86.6 fL Normal 81.0-100.0 A [facility] ([place] Comment on above: Performed By: #### A DIFF, ANEU, PBNP, MG, GFR, CBC, BMP, PRO ####[place] [address] Platelet 139 10 3/mcL Low 150-450 [facility] ([place] Comment on above: Performed By: #### A DIFF, ANEU, PBNP, MG, GFR, CBC, BMP, PRO ####[place] [address] Platelet mean volume (Bld) [Entitic vol] 9.1 fL Normal 6.4-10.5 [facility] ([place] Comment on above: Performed By: #### A DIFF, ANEU, PBNP, MG, GFR, CBC, BMP, PRO ####[place] [address] RBC 3.02 10 6/mcL Low 4.50-6.00 [facility] ([place] Comment on above: Performed By: #### A DIFF, ANEU, PBNP, MG, GFR, CBC, BMP, PRO ####[place] [address] WBC 13.8 10 3/mcL High 4.5-10.8 [facility] ([place] Comment on above: Performed By: #### A DIFF, ANEU, PBNP, MG, GFR, CBC, BMP, PRO ####[place] [address] LABORATORYOrdered By: Mary Veronica on 06-10-2023 Blood Glucose Testing Reason Routine (06/10/23 8:59 PM) [facility] Work Phone: LABORATORYOrdered By: SYSTEM [...] [Vol rate/Area] 40 ml/min/1.73sqm Invalid Interpretation Code [facility] Comment on above: Interpretive Data: GFR Population [...] [Vol rate/Area] 33 ml/min/1.73sqm Invalid Interpretation Code [facility] Comment on above: Interpretive Data: GFR Population [...] 212 mg/dL High 82 - 115 mg/dL [facility] Hematocrit (Bld) [Volume fraction] 26.1 % Low [...] Comment on above: Interpretive Data: T rhonda [employer] (CHEST, 1992, 102:[id number]) recommended therapeutic range for oral anticoagulant therapy is: LOW RISK: Prophylaxis of venous thrombosis INR: 2.0-3.0 Treatment of pulmonary embolism 2.0-3.0 Prevention of systemic embolism 2.0-3.0 HIGH RISK: Mechanical prosthetic valves 2.5-3.5 MGon 06-10-2023 Magnesium [Mass/Vol] 2.5 mg/dL High 1.6-2.4 [facility] ([place] Comment on above: Performed By: #### A DIFF, ANEU, PBNP, MG, GFR, CBC, BMP, PRO ####[facility] [place] [address] PBNPon 06-10-2023 Natriuretic peptide B (Bld) [Mass/Vol] 4528 pg/mL High 0-1800 [facility] ([place] Comment on above: Result Comment: NT-p roBNP results of less than 300 pg/mL effectivelyrules out acute congestive heart failure with 99% negative predictive value. Performed By: #### A DIFF, ANEU, PBNP, MG, GFR, CBC, BMP, PRO ####[address] [address] PROon 06-10-2023 INR Coag (PPP) [Relative time] 1.1 {INR} Normal [facility] ([place] Comment on above: Result Comment: [employer] (CHEST, 1991, [id number])recommended therapeutic range for oral anticoagulant therapy is:LOW RISK: Prophylaxis of venous thrombosis INR: 2.0-3.0 Treatment of pulmonary embolism 2.0-3.0 Prevention of systemic embolism 2.0-3.0HIGH RISK: Mechanical prosthetic valves 2.5-3.5 Performed By: #### A DIFF, ANEU, PBNP, MG, GFR, CBC, BMP, PRO ####[place] [address] PT Coag (PPP) [Time] 12.7 s Normal 9.0-14.2 [facility] ([place] Comment on above: Result Comment: Effe ctive 09/24/07, Protime results may be affected by some antibiotics (i.e. Ciprofloxacin, Azithromycin, Bactrim) which may potentiate the action of oral anticoagulants, with further increases in Protime/INR. Performed By: #### A DIFF, ANEU, PBNP, MG, GFR, CBC, BMP, PRO ####[place] [address] .Auto Diffon 06-09-2023 Basophil, Absolute 0.0 10 3/mcL Normal 0.0-0.3 [facility] ([place] Comment on above: Performed By: #### A DIFF, GFR, CMP, ANEU, CBC ####[place] [address] Basophils/100 WBC (Bld) 0.1 % Normal 0.0-2.5 A [facility] ([place] Comment on above: Performed By: #### A DIFF, GFR, CMP, ANEU, CBC ####[place] [address] Eosinophil, Absolute 0.0 10 3/mcL Normal 0.0-0.7 [facility] ([place] Comment on above: Performed By: #### A DIFF, GFR, CMP, ANEU, CBC ####[address] [address] Eosinophils/100 WBC (Bld) 0.0 % Normal 0.0-6.0 [facility] ([place] Comment on above: Performed By: #### A DIFF, GFR, CMP, ANEU, CBC ####[address] [address] Lymphocyte, Absolute 0.4 10 3/mcL Low 0.9-4.3 [facility] ([place] Comment on above: Performed By: #### A DIFF, GFR, CMP, ANEU, CBC ####[address] [address] Lymphocytes/100 WBC (Bld) 8.7 % Low 20.0-40.0 [facility] ([place] Comment on above: Performed By: #### A DIFF, GFR, CMP, ANEU, CBC ####[address] [address] Monocyte, Absolute 0.0 10 3/mcL Low 0.1-1.4 [facility] ([place] Comment on above: Performed By: #### A DIFF, GFR, CMP, ANEU, CBC ####[address] [address] Monocytes/100 WBC (Bld) 0.6 % Low 2.0-13.0 A [facility] ([place] Comment on above: Performed By: #### A DIFF, GFR, CMP, ANEU, CBC ####[address] [address] Neutrophils/100 WBC (Bld) 90.6 % High 50.0-75.0 [facility] ([place] Comment on above: Performed By: #### A DIFF, GFR, CMP, ANEU, CBC ####[address] [address] Basophil, Absolute 0.0 10 3/mcL Normal 0.0-0.3 [facility] ([place] Comment on above: Performed By: #### G FR, PBNP, MG, TROPHS, PHOS, ANEU, CBC, BMP, ADIFF ####[address] [address] Basophils/100 WBC (Bld) 0.2 % Normal 0.0-2.5 A [facility] ([place]) Comment on above: Performed By: #### G FR, PBNP, MG, TROPHS, PHOS, ANEU, CBC, BMP, ADIFF ####[address] [address] Eosinophil, Absolute 0.0 10 3/mcL Normal 0.0-0.7 [facility] ([place]) Comment on above: Performed By: #### G FR, PBNP, MG, TROPHS, PHOS, ANEU, CBC, BMP, ADIFF ####[address] [address] Eosinophils/100 WBC (Bld) 0.1 % Normal 0.0-6.0 [facility] ([place]) Comment on above: Performed By: #### G FR, PBNP, MG, TROPHS, PHOS, ANEU, CBC, BMP, ADIFF ####[address] [address] Lymphocyte, Absolute 0.4 10 3/mcL Low 0.9-4.3 [facility] ([place]) Comment on above: Performed By: #### G FR, PBNP, MG, TROPHS, PHOS, ANEU, CBC, BMP, ADIFF ####[address] [address] Lymphocytes/100 WBC (Bld) 8.5 % Low 20.0-40.0 [facility] ([place]) Comment on above: Performed By: #### G FR, PBNP, MG, TROPHS, PHOS, ANEU, CBC, BMP, ADIFF ####[address] [address] Monocyte, Absolute 0.0 10 3/mcL Low 0.1-1.4 [facility] ([place] Comment on above: Performed By: #### G FR, PBNP, MG, TROPHS, PHOS, ANEU, CBC, BMP, ADIFF ####[address] [address] Monocytes/100 WBC (Bld) 0.7 % Low 2.0-13.0 A [facility] ([place]) Comment on above: Performed By: #### G FR, PBNP, MG, TROPHS, PHOS, ANEU, CBC, BMP, ADIFF ####[address] [address] Neutrophils/100 WBC (Bld) 90.5 % High 50.0-75.0 [facility] ([place] Comment on above: Performed By: #### G FR, PBNP, MG, TROPHS, PHOS, ANEU, CBC, BMP, ADIFF ####[address] [address] .GFRon 06-09-2023 GFR Non- 34 ml/min/1.73sqm Normal [facility] ([place] Comment on above: Result Comment: GFR Population [...] #### A DIFF, GFR, CMP, ANEU, CBC ####[address] [address] GFR 41 ml/min/1.73sqm Normal [facility] ([place] Comment on above: Result Comment: GFR Population [...] #### A DIFF, GFR, CMP, ANEU, CBC ####[place] [address] GFR Non- 33 ml/min/1.73sqm Normal [facility] ([place] Comment on above: Result Comment: GFR Population [...] MG, TROPHS, PHOS, ANEU, CBC, BMP, ADIFF ####[place] [address] GFR 40 ml/min/1.73sqm [facility] ([place] Comment on above: Result Comment: GFR Population [...] MG, TROPHS, PHOS, ANEU, CBC, BMP, ADIFF ####[address] [address] .NEUABSon 06-09-2023 Neutrophil, Absolute 4.1 10 3/mcL Normal 2.3-8.1 [facility] ([place] Comment on above: Performed By: #### A DIFF, GFR, CMP, ANEU, CBC ####[place] [address] Neutrophil, Absolute 4.3 10 3/mcL Normal 2.3-8.1 [facility] ([place] Comment on above: Performed By: #### G FR, PBNP, MG, TROPHS, PHOS, ANEU, CBC, BMP, ADIFF ####[place] [address] ABO/Rh (Gel)on 06-09-2023 ABO/Rh Interp Negative Invalid Interpretation Code [facility] ([place] Comment on above: Performed By: #### A BSGEL, ABOGEL ####[place] [address] ABS (Gel)on 06-09-2023 ABSC Interp (Gel) Negative Normal [facility] ([place] Comment on above: Performed By: #### A BSGEL, ABOGEL ####[place] [address] BMPon 06-09-2023 BUN/Creatinine Ratio 39.5 ratio High 10.0-22.0 [facility] ([place] Comment on above: Performed By: #### G FR, PBNP, MG, TROPHS, PHOS, ANEU, CBC, BMP, ADIFF ####[place] [address] Calcium [Mass/Vol] 8.6 mg/dL Low 8.7-10.4 [facility] ([place] Comment on above: Performed By: #### G FR, PBNP, MG, TROPHS, PHOS, ANEU, CBC, BMP, ADIFF ####[place] [address] Chloride [Moles/Vol] 107 mmol/L Normal 98-110 [facility] ([place] Comment on above: Performed By: #### G FR, PBNP, MG, TROPHS, PHOS, ANEU, CBC, BMP, ADIFF ####[address] [address] CO2 [Moles/Vol] 23 mmol/L Normal 22-32 [facility] ([place] Comment on above: Performed By: #### G FR, PBNP, MG, TROPHS, PHOS, ANEU, CBC, BMP, ADIFF ####[address] [address] Creatinine [Mass/Vol] 1.95 mg/dL High 0.60-1.40 [facility] ([place] Comment on above: Performed By: #### G FR, PBNP, MG, TROPHS, PHOS, ANEU, CBC, BMP, ADIFF ####[place] [address] Electrolyte Balance 9.0 mEq/L Normal 4.0-15.0 [facility] ([place]) Comment on above: Performed By: #### G FR, PBNP, MG, TROPHS, PHOS, ANEU, CBC, BMP, ADIFF ####[address] [address] Glucose [Mass/Vol] 366 mg/dL High 82-115 [facility] ([place] Comment on above: Performed By: #### G FR, PBNP, MG, TROPHS, PHOS, ANEU, CBC, BMP, ADIFF ####[address] [address] Potassium [Moles/Vol] 4.7 mmol/L Normal 3.5-5.0 [facility] ([place]) Comment on above: Performed By: #### G FR, PBNP, MG, TROPHS, PHOS, ANEU, CBC, BMP, ADIFF ####[address] [address] Sodium [Moles/Vol] 139 mmol/L Normal 136-145 [facility] ([place] Comment on above: Performed By: #### G FR, PBNP, MG, TROPHS, PHOS, ANEU, CBC, BMP, ADIFF ####[address] [address] Urea nitrogen [Mass/Vol] 77.0 mg/dL High 8.0-22.0 [facility] ([place] Comment on above: Performed By: #### G FR, PBNP, MG, TROPHS, PHOS, ANEU, CBC, BMP, ADIFF ####[place] [address] CBCon 06-09-2023 Erythrocyte distribution width (RBC) [Ratio] 15.7 % High 11.5-15.5 [facility] ([place] Comment on above: Performed By: #### A DIFF, GFR, CMP, ANEU, CBC ####[place] [address] Hematocrit (Bld) [Volume fraction] 20.8 % Low 40.0-52.0 [facility] ([place] Comment on above: Performed By: #### A DIFF, GFR, CMP, ANEU, CBC ####[place] [address] Hgb 7.1 G/dL Low 13.0-17.5 [facility] ([place] Comment on above: Performed By: #### A DIFF, GFR, CMP, ANEU, CBC ####[place] [address] MCH (RBC) [Entitic mass] 29.1 pg Normal 27.0-33.0 [facility] ([place] Comment on above: Performed By: #### A DIFF, GFR, CMP, ANEU, CBC ####[place] [address] MCHC 34.1 G/dL Normal 32.0-36.0 [facility] ([place] Comment on above: Performed By: #### A DIFF, GFR, CMP, ANEU, CBC ####[place] [address] MCV (RBC) [Entitic vol] 85.3 fL Normal 81.0-100.0 A [facility] ([place] Comment on above: Performed By: #### A DIFF, GFR, CMP, ANEU, CBC ####[place] [address] Platelet 108 10 3/mcL Low 150-450 [facility] ([place] Comment on above: Performed By: #### A DIFF, GFR, CMP, ANEU, CBC ####[place] [address] Platelet mean volume (Bld) [Entitic vol] 9.0 fL Normal 6.4-10.5 [facility] ([place] Comment on above: Performed By: #### A DIFF, GFR, CMP, ANEU, CBC ####[place] [address] RBC 2.43 10 6/mcL Low 4.50-6.00 [facility] ([place] Comment on above: Performed By: #### A DIFF, GFR, CMP, ANEU, CBC ####[place] [address] WBC 4.5 10 3/mcL Normal 4.5-10.8 [facility] ([place] Comment on above: Performed By: #### A DIFF, GFR, CMP, ANEU, CBC ####[place] [address] Erythrocyte distribution width (RBC) [Ratio] 15.8 % High 11.5-15.5 [facility] ([place] Comment on above: Performed By: #### G FR, PBNP, MG, TROPHS, PHOS, ANEU, CBC, BMP, ADIFF ####[place] [address] Hematocrit (Bld) [Volume fraction] 21.5 % Low 40.0-52.0 [facility] ([place] Comment on above: Performed By: #### G FR, PBNP, MG, TROPHS, PHOS, ANEU, CBC, BMP, ADIFF ####[place] [address] Hgb 7.2 G/dL Low 13.0-17.5 [facility] ([place] Comment on above: Performed By: #### G FR, PBNP, MG, TROPHS, PHOS, ANEU, CBC, BMP, ADIFF ####[address] [place] [address] MCH (RBC) [Entitic mass] 28.9 pg Normal 27.0-33.0 [facility] ([place] Comment on above: Performed By: #### G FR, PBNP, MG, TROPHS, PHOS, ANEU, CBC, BMP, ADIFF ####[place] [address] MCHC 33.7 G/dL Normal 32.0-36.0 [facility] ([place] Comment on above: Performed By: #### G FR, PBNP, MG, TROPHS, PHOS, ANEU, CBC, BMP, ADIFF ####[place] [address] MCV (RBC) [Entitic vol] 85.8 fL Normal 81.0-100.0 A [facility] ([place] Comment on above: Performed By: #### G FR, PBNP, MG, TROPHS, PHOS, ANEU, CBC, BMP, ADIFF ####[place] [address] Platelet 110 10 3/mcL Low 150-450 [facility] ([place] Comment on above: Performed By: #### G FR, PBNP, MG, TROPHS, PHOS, ANEU, CBC, BMP, ADIFF ####[place] [address] Platelet mean volume (Bld) [Entitic vol] 8.8 fL Normal 6.4-10.5 [facility] ([place] Comment on above: Performed By: #### G FR, PBNP, MG, TROPHS, PHOS, ANEU, CBC, BMP, ADIFF ####[place] [address] RBC 2.50 10 6/mcL Low 4.50-6.00 [facility] ([place] Comment on above: Performed By: #### G FR, PBNP, MG, TROPHS, PHOS, ANEU, CBC, BMP, ADIFF ####[place] [address] WBC 4.7 10 3/mcL Normal 4.5-10.8 [facility] ([place] Comment on above: Performed By: #### G FR, PBNP, MG, TROPHS, PHOS, ANEU, CBC, BMP, ADIFF ####[place] [address] CMPon 06-09-2023 Albumin Level 2.6 G/dL Low 3.2-4.8 [facility] ([place] Comment on above: Performed By: #### A DIFF, GFR, CMP, ANEU, CBC ####[place] [address] Albumin/Globulin [Mass ratio] 0.8 {ratio} Low 0.9-1.6 [facility] ([place] Comment on above: Performed By: #### A DIFF, GFR, CMP, ANEU, CBC ####[place] [address] ALP [Catalytic activity/Vol] 61 U/L Normal 38-126 [facility] ([place] Comment on above: Performed By: #### A DIFF, GFR, CMP, ANEU, CBC ####[place] [address] ALT [Catalytic activity/Vol] 16 U/L Normal 12-55 [facility] ([place] Comment on above: Performed By: #### A DIFF, GFR, CMP, ANEU, CBC ####[place] [address] AST [Catalytic activity/Vol] 14 U/L Normal 8-34 [facility] ([place] Comment on above: Performed By: #### A DIFF, GFR, CMP, ANEU, CBC ####[place] [address] Bili Total 0.40 mg/dL Normal 0.20-1.20 [facility] ([place] Comment on above: Result Comment: Use of this assay is not recommended for patients undergoing treatment with eltrombopag due to the potential for falsely elevated results. Performed By: #### A DIFF, GFR, CMP, ANEU, CBC ####[place] [address] BUN/Creatinine Ratio 41.1 ratio High 10.0-22.0 [facility] ([place] Comment on above: Performed By: #### A DIFF, GFR, CMP, ANEU, CBC ####[address] [address] Calcium [Mass/Vol] 8.8 mg/dL Normal 8.7-10.4 [facility] ([place] Comment on above: Performed By: #### A DIFF, GFR, CMP, ANEU, CBC ####[address] [address] Chloride [Moles/Vol] 104 mmol/L Normal 98-110 [facility] ([place] Comment on above: Performed By: #### A DIFF, GFR, CMP, ANEU, CBC ####[address] [address] CO2 [Moles/Vol] 28 mmol/L Normal 22-32 [facility] ([place] Comment on above: Performed By: #### A DIFF, GFR, CMP, ANEU, CBC ####[address] [address] Creatinine [Mass/Vol] 1.92 mg/dL High 0.60-1.40 [facility] ([place] Comment on above: Performed By: #### A DIFF, GFR, CMP, ANEU, CBC ####[place] [address] Electrolyte Balance 9.0 mEq/L Normal 4.0-15.0 [facility] ([place] Comment on above: Performed By: #### A DIFF, GFR, CMP, ANEU, CBC ####[address] [address] Globulin 3.3 G/dL Normal 1.5-3.8 [facility] ([place] Comment on above: Performed By: #### A DIFF, GFR, CMP, ANEU, CBC ####[address] [address] Glucose [Mass/Vol] 323 mg/dL High 82-115 [facility] ([place] Comment on above: Performed By: #### A DIFF, GFR, CMP, ANEU, CBC ####[place] [address] Potassium [Moles/Vol] 4.5 mmol/L Normal 3.5-5.0 [facility] ([place] Comment on above: Performed By: #### A DIFF, GFR, CMP, ANEU, CBC ####[address] [address] Sodium [Moles/Vol] 141 mmol/L Normal 136-145 [facility] ([place] Comment on above: Performed By: #### A DIFF, GFR, CMP, ANEU, CBC ####[place] [address] Total Protein 5.9 G/dL Normal 5.7-8.2 [facility] ([place] Comment on above: Result Comment: No te - New Reference Range in effect 19 Performed By: #### A DIFF, GFR, CMP, ANEU, CBC ####[place] [address] Urea nitrogen [Mass/Vol] 79.0 mg/dL High 8.0-22.0 [facility] ([place] Comment on above: Performed By: #### A DIFF, GFR, CMP, ANEU, CBC ####[address] [address] HHon 06-09-2023 Hematocrit (Bld) [Volume fraction] 24.5 % Low 40.0-52.0 [facility] ([place] Comment on above: Performed By: #### H H ####[address] [address] Hgb 8.4 G/dL Low 13.0-17.5 [facility] ([place] Comment on above: Performed By: #### H H ####[address] [address] LABORATORYOrdered By: Francisco Brown on 06-09-2023 Blood Glucose Testing Reason Routine (06/09/23 9:08 PM) [facility] Work Phone: LABORATORYOrdered By: Delia Mueller on 06-09-2023 Blood Glucose Interventions Administered agent to decrease blood sugar (06/09/23 4:35 PM) [facility] Work Phone: Blood Glucose Testing Reason Routine (06/09/23 4:35 PM) [facility] Work Phone: Blood Glucose Interventions Administered agent to decrease blood sugar (06/09/23 12:12 PM) [facility] Work Phone: Blood Glucose Interventions Administered agent to decrease blood sugar (06/09/23 8:10 AM) [facility] Work Phone: LABORATORYOrdered By: SYSTEM [...] [Vol rate/Area] 34 ml/min/1.73sqm Invalid Interpretation Code [facility] Comment on above: Interpretive Data: GFR Population [...] ng/L Male: 0-54 ng/L Testing performed on [employer] IM analyzer using direct chemiluminescent technology. LABORATORYOrdered [...] 06-09-2023 Magnesium [Mass/Vol] 1.5 mg/dL Low 1.6-2.4 [facility] ([place] Comment on above: Performed By: #### G FR, PBNP, MG, TROPHS, PHOS, ANEU, CBC, BMP, ADIFF ####[place] [address] PBNPon 06-09-2023 Natriuretic peptide B (Bld) [Mass/Vol] 2824 pg/mL High 0-1800 [facility] ([place] Comment on above: Result Comment: NT-p roBNP results of less than 300 pg/mL effectivelyrules out acute congestive heart failure with 99% negative predictive value. Performed By: #### G FR, PBNP, MG, TROPHS, PHOS, ANEU, CBC, BMP, ADIFF ####[place] [address] PHOSon 06-09-2023 Phosphate [Mass/Vol] 2.6 mg/dL Normal 2.4-5.1 [facility] ([place] Comment on above: Result Comment: No te - New Reference Range in effect 19 Performed By: #### G FR, PBNP, MG, TROPHS, PHOS, ANEU, CBC, BMP, ADIFF ####[place] [address] RBC (Product)on 06-09-2023 RBC Product Ready RBC Ready for Pickup Normal [facility] ([place] Comment on above: Performed By: #### R BCP ####[address] 06-09-2023 High Sensitivity Troponin I 23 ng/L Normal 0-54 [facility] ([place] Comment on above: Result Comment: High Sensitive Troponin I Reference Ranges:Female: 0-34 ng/LMale: 0-54 ng/LTesting performed on [employer] IM analyzer using direct chemiluminescent technology. Performed By: #### G FR, PBNP, MG, TROPHS, PHOS, ANEU, CBC, BMP, ADIFF ####[place] [address] XR CHEST 1 VIEWon 06-09-2023 XR CHEST 1 VIEW Normal [facility] ([place] .Auto Diffon 06-08-2023 Basophil, Absolute 0.0 10 3/mcL Normal 0.0-0.2 [facility] ([place] Comment on above: Performed By: #### M DW, TROPHS, ANEU, CBC, ADIFF ####[address] [address] Basophils/100 WBC (Bld) 0.7 % Normal 0.0-2.5 A [facility] ([place]) Comment on above: Performed By: #### M DW, TROPHS, ANEU, CBC, ADIFF ####[address] [place], [place] [address] Eosinophil, Absolute 0.1 10 3/mcL Normal 0.0-0.4 [facility] ([place]) Comment on above: Performed By: #### M DW, TROPHS, ANEU, CBC, ADIFF ####[address] [place], [place] [address] Eosinophils/100 WBC (Bld) 2.2 % Normal 0.0-7.0 [facility] ([place]) Comment on above: Performed By: #### M DW, TROPHS, ANEU, CBC, ADIFF ####[address] [place], [place] [address] Lymphocyte, Absolute 1.0 10 3/mcL Normal 0.8-3.9 [facility] ([place]) Comment on above: Performed By: #### M DW, TROPHS, ANEU, CBC, ADIFF ####[address] [place], [place] [address] Lymphocytes/100 WBC (Bld) 15.6 % Normal 10.0-50.0 [facility] ([place]) Comment on above: Performed By: #### M DW, TROPHS, ANEU, CBC, ADIFF ####[address] [place], [place] [address] Monocyte, Absolute 0.4 10 3/mcL Normal 0.2-1.0 [facility] ([place] Comment on above: Performed By: #### M DW, TROPHS, ANEU, CBC, ADIFF ####[address] [place], [place] [address] Monocytes/100 WBC (Bld) 5.9 % Normal 1.7-13.0 A [facility] ([place]) Comment on above: Performed By: #### M DW, TROPHS, ANEU, CBC, ADIFF ####[address] [place], [place] [address] Neutrophils/100 WBC (Bld) 75.6 % Normal 37.0-80.0 [facility] ([place]) Comment on above: Performed By: #### M DW, TROPHS, ANEU, CBC, ADIFF ####[address] [place], [place] [address] Basophil, Absolute 0.0 10 3/mcL Normal 0.0-0.2 [facility] ([place]) Comment on above: Performed By: #### C BC, PBNP, CMP, ADIFF, GFR, ANEU ####[address] [place], [place] [address] Basophils/100 WBC (Bld) 0.5 % Normal 0.0-2.5 A [facility] ([place]) Comment on above: Performed By: #### C BC, PBNP, CMP, ADIFF, GFR, ANEU ####[address] [place], [place] [address] Eosinophil, Absolute 0.2 10 3/mcL Normal 0.0-0.4 [facility] ([place]) Comment on above: Performed By: #### C BC, PBNP, CMP, ADIFF, GFR, ANEU ####[address] [place], [place] [address] Eosinophils/100 WBC (Bld) 2.3 % Normal 0.0-7.0 [facility] ([place]) Comment on above: Performed By: #### C BC, PBNP, CMP, ADIFF, GFR, ANEU ####[address] [place], [place] [address] Lymphocyte, Absolute 1.0 10 3/mcL Normal 0.8-3.9 [facility] ([place]) Comment on above: Performed By: #### C BC, PBNP, CMP, ADIFF, GFR, ANEU ####[address] [place], [place] [address] Lymphocytes/100 WBC (Bld) 15.5 % Normal 10.0-50.0 [facility] ([place] Comment on above: Performed By: #### C BC, PBNP, CMP, ADIFF, GFR, ANEU ####[address] [place], [place] [address] Monocyte, Absolute 0.4 10 3/mcL Normal 0.2-1.0 [facility] ([place] Comment on above: Performed By: #### C BC, PBNP, CMP, ADIFF, GFR, ANEU ####[address] [place], [place] [address] Monocytes/100 WBC (Bld) 6.6 % Normal 1.7-13.0 A [facility] ([place] Comment on above: Performed By: #### C BC, PBNP, CMP, ADIFF, GFR, ANEU ####[address] [place], [place] [address] Neutrophils/100 WBC (Bld) 75.1 % Normal 37.0-80.0 [facility] ([place] Comment on above: Performed By: #### C BC, PBNP, CMP, ADIFF, GFR, ANEU ####[address] [place], [place] [address] .GFRon 06-08-2023 GFR Non- 28 ml/min/1.73sqm Normal [facility] ([place] Comment on above: Result Comment: GFR Population [...] BC, PBNP, CMP, ADIFF, GFR, ANEU ####[address] [place], [place] [address] GFR 34 ml/min/1.73sqm Normal [facility] ([place] Comment on above: Result Comment: GFR Population [...] PBNP, CMP, ADIFF, GFR, ANEU ####[address] [place], [place] [address] .MDWon 06-08-2023 Monocyte Distribution Width 19.65 Normal 0.00-20.00 [facility] ([place] Comment on above: Result Comment: For ED adult patients suspected of sepsis, MDW<=20.0 does not rule out sepsis or risk of sepsis Performed By: #### M DW, TROPHS, ANEU, CBC, ADIFF ####[address] [place], [place] [address] .NEUABSon 06-08-2023 Neutrophil, Absolute 5.0 10 3/mcL Normal 2.9-6.2 [facility] ([place] Comment on above: Performed By: #### M DW, TROPHS, ANEU, CBC, ADIFF ####[address] [place], [place] [address] Neutrophil, Absolute 5.1 10 3/mcL Normal 2.9-6.2 [facility] ([place] Comment on above: Performed By: #### C BC, PBNP, CMP, ADIFF, GFR, ANEU ####[address] [place], [place] [address] ABGon 06-08-2023 Base excess Calc (Bld) [Moles/Vol] 2.0 mmol/L Normal -2.4-2.3 [facility] ([place] Comment on above: Order Comment: On ro om air Performed By: #### A BG ####[address] [place], [place] [address] CO2 [Moles/Vol] 28 mmol/L High 19-24 [facility] ([place] Comment on above: Order Comment: On ro om air Performed By: #### A BG ####[address] [place], [place] [address] HCO3 (Bld) [Moles/Vol] 26.7 mmol/L High 22.0-26.0 A [facility] ([place] Comment on above: Order Comment: On ro om air Performed By: #### A BG ####[address] [place], [place] [address] Oxygen (Bld) [Partial pressure] 147.0 mm[Hg] High 80.0-100.0 [facility] ([place] Comment on above: Order Comment: On ro om air Performed By: #### A BG ####[address] [place], [place] [address] Oxygen saturation in Blood 99 % High 95-98 [facility] ([place] Comment on above: Order Comment: On ro om air Performed By: #### A BG ####[address] [place], [place] [address] pCO2 40.4 mmHg Normal 35.0-45.0 [facility] ([place] Comment on above: Order Comment: On ro om air Performed By: #### A BG ####[address] [place], [place] [address] pH (Bld) 7.43 [pH] Normal 7.35-7.45 [facility] ([place] Comment on above: Order Comment: On ro om air Performed By: #### A BG ####[address] [place], [place] [address] CBCon 06-08-2023 Erythrocyte distribution width (RBC) [Ratio] 15.6 % High 11.5-14.5 [facility] ([place] Comment on above: Performed By: #### M DW, TROPHS, ANEU, CBC, ADIFF ####[address] [place], [place] [address] Hematocrit (Bld) [Volume fraction] 22.5 % Low 42.0-52.0 [facility] ([place] Comment on above: Performed By: #### M TIFFANY TROPHS, ANEU, CBC, ADIFF ####[address] [place], [place] [address] Hgb 7.6 G/dL Low 14.0-18.0 [facility] ([place] Comment on above: Performed By: #### M TIFFANY TROPHS, ANEU, CBC, ADIFF ####[address] [place], [place] [address] MCH (RBC) [Entitic mass] 29.0 pg Normal 27.0-31.2 [facility] ([place] Comment on above: Performed By: #### M TIFFANY TROPHS, ANEU, CBC, ADIFF ####[address] [place], [place] [address] MCHC 33.6 G/dL Normal 31.8-35.4 [facility] ([place] Comment on above: Performed By: #### Elidia ALLEN TROPHS, ANEU, CBC, ADIFF ####[address] [place], [place] [address] MCV (RBC) [Entitic vol] 86.3 fL Normal 80.0-94.0 A [facility] ([place] Comment on above: Performed By: #### M TIFFANY TROPHS, ANEU, CBC, ADIFF ####[address] [place], [place] [address] Platelet 140 10 3/mcL Normal 130-400 [facility] ([place] Comment on above: Performed By: #### M TIFFANY TROPHS, ANEU, CBC, ADIFF ####[address] [place], [place] [address] Platelet mean volume (Bld) [Entitic vol] 8.9 fL Normal 7.4-10.4 [facility] ([place] Comment on above: Performed By: #### Elidia ALLEN TROPHS, ANEU, CBC, ADIFF ####[address] [place], [place] [address] RBC 2.60 10 6/mcL Low 4.04-6.13 [facility] ([place] Comment on above: Performed By: #### M DW, TROPHS, ANEU, CBC, ADIFF ####[address] [place], [place] [address] WBC 6.6 10 3/mcL Normal 4.6-10.8 [facility] ([place] Comment on above: Performed By: #### M DW, TROPHS, ANEU, CBC, ADIFF ####[address] [place], [place] [address] Erythrocyte distribution width (RBC) [Ratio] 15.3 % High 11.5-14.5 [facility] ([place] Comment on above: Performed By: #### C BC, PBNP, CMP, ADIFF, GFR, ANEU ####[address] [place], [place] [address] Hematocrit (Bld) [Volume fraction] 23.0 % Low 42.0-52.0 [facility] ([place] Comment on above: Performed By: #### C BC, PBNP, CMP, ADIFF, GFR, ANEU ####[address] [place], [place] [address] Hgb 7.7 G/dL Low 14.0-18.0 [facility] ([place] Comment on above: Performed By: #### C BC, PBNP, CMP, ADIFF, GFR, ANEU ####[address] [place], [place] [address] MCH (RBC) [Entitic mass] 29.0 pg Normal 27.0-31.2 [facility] ([place] Comment on above: Performed By: #### C BC, PBNP, CMP, ADIFF, GFR, ANEU ####[address] [place], [place] [address] MCHC 33.5 G/dL Normal 31.8-35.4 [facility] ([place] Comment on above: Performed By: #### C BC, PBNP, CMP, ADIFF, GFR, ANEU ####[address] [place], [place] [address] MCV (RBC) [Entitic vol] 86.4 fL Normal 80.0-94.0 A [facility] ([place] Comment on above: Performed By: #### C BC, PBNP, CMP, ADIFF, GFR, ANEU ####[address] [place], [place] [address] Platelet 141 10 3/mcL Normal 130-400 [facility] ([place] Comment on above: Performed By: #### C BC, PBNP, CMP, ADIFF, GFR, ANEU ####[address] [place], [place] [address] Platelet mean volume (Bld) [Entitic vol] 8.8 fL Normal 7.4-10.4 [facility] ([place] Comment on above: Performed By: #### C BC, PBNP, CMP, ADIFF, GFR, ANEU ####[address] [place], [place] [address] RBC 2.66 10 6/mcL Low 4.04-6.13 [facility] ([place] Comment on above: Performed By: #### C BC, PBNP, CMP, ADIFF, GFR, ANEU ####[address] [place], [place] [address] WBC 6.7 10 3/mcL Normal 4.6-10.8 [facility] ([place] Comment on above: Performed By: #### C BC, PBNP, CMP, ADIFF, GFR, ANEU ####[address] [place], [place] [address] CMPon 06-08-2023 Albumin Level 2.7 G/dL Low 3.4-4.8 [facility] ([place] Comment on above: Performed By: #### C BC, PBNP, CMP, ADIFF, GFR, ANEU ####[address] [place], [place] [address] Albumin/Globulin [Mass ratio] 0.8 {ratio} Low 1.1-2.5 [facility] ([place] Comment on above: Performed By: #### C BC, PBNP, CMP, ADIFF, GFR, ANEU ####[address] [place], [place] [address] ALP [Catalytic activity/Vol] 70 U/L Normal 40-135 [facility] ([place] Comment on above: Performed By: #### C BC, PBNP, CMP, ADIFF, GFR, ANEU ####[address] [place], [place] [address] ALT [Catalytic activity/Vol] 26 U/L Normal 16-63 [facility] ([place] Comment on above: Performed By: #### C BC, PBNP, CMP, ADIFF, GFR, ANEU ####[address] [place], [place] [address] AST [Catalytic activity/Vol] 16 U/L Normal 10-40 [facility] ([place] Comment on above: Performed By: #### C BC, PBNP, CMP, ADIFF, GFR, ANEU ####[address] [place], [place] [address] Bili Total 0.3 mg/dL Normal 0.2-1.0 [facility] ([place] Comment on above: Result Comment: Use of this assay is not recommended for patients undergoing treatment with eltrombopag due to the potential for falsely elevated results. Performed By: #### C BC, PBNP, CMP, ADIFF, GFR, ANEU ####[address] [place], [place] [address] BUN/Creatinine Ratio 34 ratio High 7-27 [facility] ([place] Comment on above: Performed By: #### C BC, PBNP, CMP, ADIFF, GFR, ANEU ####[address] [place], [place] [address] Calcium [Mass/Vol] 9.0 mg/dL Normal 8.4-10.2 [facility] ([place] Comment on above: Performed By: #### C BC, PBNP, CMP, ADIFF, GFR, ANEU ####[address] [place], [place] [address] Chloride [Moles/Vol] 108 mmol/L High 98-107 [facility] ([place] Comment on above: Performed By: #### C BC, PBNP, CMP, ADIFF, GFR, ANEU ####[address] [place], [place] [address] CO2 [Moles/Vol] 29 mmol/L Normal 23-31 [facility] ([place] Comment on above: Performed By: #### C BC, PBNP, CMP, ADIFF, GFR, ANEU ####[address] [place], [place] [address] Creatinine [Mass/Vol] 2.24 mg/dL High 0.70-1.30 [facility] ([place]) Comment on above: Performed By: #### C BC, PBNP, CMP, ADIFF, GFR, ANEU ####[address] [place], [place] [address] Electrolyte Balance 8.0 mEq/L Normal 4.0-15.0 [facility] ([place]) Comment on above: Performed By: #### C BC, PBNP, CMP, ADIFF, GFR, ANEU ####[address] [place], [place] [address] Globulin 3.5 G/dL Normal [facility] ([place] Comment on above: Performed By: #### C BC, PBNP, CMP, ADIFF, GFR, ANEU ####[address] [place], [place] [address] Glucose [Mass/Vol] 251 mg/dL High 83-110 [facility] ([place] Comment on above: Performed By: #### C BC, PBNP, CMP, ADIFF, GFR, ANEU ####[address] [place], [place] [address] Potassium [Moles/Vol] 5.0 mmol/L Normal 3.5-5.1 [facility] ([place] Comment on above: Performed By: #### C BC, PBNP, CMP, ADIFF, GFR, ANEU ####[address] [place], [place] [address] Sodium [Moles/Vol] 145 mmol/L Normal 136-145 [facility] ([place] Comment on above: Performed By: #### C BC, PBNP, CMP, ADIFF, GFR, ANEU ####[address] [place], [place] [address] Total Protein 6.2 G/dL Low 6.4-8.2 [facility] ([place] Comment on above: Performed By: #### C BC, PBNP, CMP, ADIFF, GFR, ANEU ####[address] [place], [place] [address] Urea nitrogen [Mass/Vol] 76 mg/dL High 7-18 [facility] ([place]) Comment on above: Performed By: #### C BC, PBNP, CMP, ADIFF, GFR, ANEU ####[address]atie [address] [place], [place] [address] LABORATORYOrdered By: Javier Vega on 06-08-2023 Base [...] ng/L Male: 0-76 ng/L Testing performed on [employer] using a homogeneous sandwich chemiluminescent immunoassay based on SnoopWall technology. Basophil, Absolute 0.0 103/mcL Normal 0.0 [...] ng/L Male: 0-76 ng/L Testing performed on [employer] using a homogeneous sandwich chemiluminescent immunoassay based on SnoopWall technology. WBC (Bld) [#/Vol] 6.6 103/mcL Normal [...] B (Bld) [Mass/Vol] 2501 pg/mL High 0-450 [facility] ([place]) Comment on above: Result Comment: NT-p roBNP results of less than 300 pg/mL effectivelyrules out acute congestive heart failure with 99% negative predictive value. Performed By: #### C BC, PBNP, CMP, ADIFF, GFR, ANEU ####[address] [place], [place] [address] TROPHSon 06-08-2023 High Sensitivity Troponin I 30 ng/L Normal 0-76 [facility] ([place] Comment on above: Result Comment: High Sensitive Troponin I Reference Ranges:Female: 0-51 ng/LMale: 0-76 ng/LTesting performed on Dimension EXL using a homogeneous sandwich chemiluminescent immunoassay based on SnoopWall technology. Performed By: #### T ROP ####[address] [place], [place] [address] High Sensitivity Troponin I 30 ng/L Normal 0-76 [facility] ([place] Comment on above: Result Comment: High Sensitive Troponin I Reference Ranges:Female: 0-51 ng/LMale: 0-76 ng/LTesting performed on Dimension EXL using a homogeneous sandwich chemiluminescent immunoassay based on SnoopWall technology. Performed By: #### M DW, TROPHS, ANEU, CBC, ADIFF ####[address] [place], [place] [address] XR CHEST 1 VIEWon 06-08-2023 XR CHEST 1 VIEW Normal [facility] ([place]) .Auto Diffon 05-25-2023 Basophil, Absolute 0.0 10 3/mcL Normal 0.0-0.2 [facility] ([place]) Comment on above: Performed By: #### G FR, PBNP, CBC, ADIFF, TROPHS, BMP, MDW, ANEU ####[address] [place], [place] [address] Basophils/100 WBC (Bld) 0.4 % Normal 0.0-2.5 A [facility] ([place] Comment on above: Performed By: #### G FR, PBNP, CBC, ADIFF, TROPHS, BMP, MDW, ANEU ####[address] [place], [place] [address] Eosinophil, Absolute 0.2 10 3/mcL Normal 0.0-0.4 [facility] ([place]) Comment on above: Performed By: #### G FR, PBNP, CBC, ADIFF, TROPHS, BMP, MDW, ANEU ####[address] [place], [place] [address] Eosinophils/100 WBC (Bld) 3.5 % Normal 0.0-7.0 [facility] ([place]) Comment on above: Performed By: #### G FR, PBNP, CBC, ADIFF, TROPHS, BMP, MDW, ANEU ####[address] [place], [place] [address] Lymphocyte, Absolute 0.8 10 3/mcL Normal 0.8-3.9 [facility] ([place]) Comment on above: Performed By: #### G FR, PBNP, CBC, ADIFF, TROPHS, BMP, MDW, ANEU ####[address] [place], [place] [address] Lymphocytes/100 WBC (Bld) 11.4 % Normal 10.0-50.0 [facility] ([place]) Comment on above: Performed By: #### G FR, PBNP, CBC, ADIFF, TROPHS, BMP, MDW, ANEU ####[address] [place], [place] [address] Monocyte, Absolute 0.4 10 3/mcL Normal 0.2-1.0 [facility] ([place]) Comment on above: Performed By: #### G FR, PBNP, CBC, ADIFF, TROPHS, BMP, MDW, ANEU ####[address] [place], [place] [address] Monocytes/100 WBC (Bld) 5.9 % Normal 1.7-13.0 [facility] ([place]) Comment on above: Performed By: #### G FR, PBNP, CBC, ADIFF, TROPHS, BMP, MDW, ANEU ####[address] [place], [place] [address] Neutrophils/100 WBC (Bld) 78.8 % Normal 37.0-80.0 [facility] ([place] Comment on above: Performed By: #### G FR, PBNP, CBC, JEFERSON, SNEHA, JAVIER, RAJAT, ANEU ####[address] [place], [place] [address] .GFRon 05-25-2023 GFR 45 ml/min/1.73sqm Normal [facility] ([place] Comment on above: Result Comment: GFR Population [...] CBC, ADDEE, TROPHNia, JAVIER, RAJAT, ANEU ####[address] [place], [place] [address] GFR Non- 37 ml/min/1.73sqm Normal [facility] ([place] Comment on above: Result Comment: GFR Population [...] ADIFF, TROPHS, BMP, MDW, ANEU ####[address] [place], [place] [address] .MDWon 05-25-2023 Monocyte Distribution Width 15.89 Normal 0.00-20.00 [facility] ([place] Comment on above: Result Comment: For ED adult patients suspected of sepsis, MDW<=20.0 does not rule out sepsis or risk of sepsis Performed By: #### G FR, PBNP, CBC, ADIFF, TROPHS, BMP, MDW, ANEU ####[address] [place], [place] [address] .NEUABSon 05-25-2023 Neutrophil, Absolute 5.3 10 3/mcL Normal 2.9-6.2 [facility] ([place] Comment on above: Performed By: #### G FR, PBNP, CBC, ADIFF, TROPHS, BMP, MDW, ANEU ####[address] [place], [place] [address] BMPon 05-25-2023 BUN/Creatinine Ratio 26 ratio Normal 7-27 [facility] ([place] Comment on above: Performed By: #### G FR, PBNP, CBC, ADIFF, TROPHS, BMP, MDW, ANEU ####[address] [place], [place] [address] Calcium [Mass/Vol] 9.3 mg/dL Normal 8.4-10.2 [facility] ([place] Comment on above: Performed By: #### G FR, PBNP, CBC, ADIFF, TROPHS, BMP, MDW, ANEU ####[address] [place], [place] [address] Chloride [Moles/Vol] 108 mmol/L High 98-107 [facility] ([place] Comment on above: Performed By: #### G FR, PBNP, CBC, ADIFF, TROPHS, BMP, MDW, ANEU ####[address] [place], [place] [address] CO2 [Moles/Vol] 29 mmol/L Normal 23-31 [facility] ([place] Comment on above: Performed By: #### G FR, PBNP, CBC, ADIFF, TROPHS, JAVIER, RJAAT, ANEU ####[address] [place], [place] [address] Creatinine [Mass/Vol] 1.75 mg/dL High 0.70-1.30 [facility] ([place]) Comment on above: Performed By: #### G FR, PBNP, CBC, ADIFF, TROPHS, BMP, RAJAT, ANEU ####[address] [place], [place] [address] Electrolyte Balance 7.0 mEq/L Normal 4.0-15.0 [facility] ([place]) Comment on above: Performed By: #### G FR, PBNP, CBC, ADIFF, TROPHS, JAVIER, RAJAT, ANEU ####[address] [place], [place] [address] Glucose [Mass/Vol] 118 mg/dL High 83-110 [facility] ([place] Comment on above: Performed By: #### G FR, PBNP, CBC, ADIFF, TROPHS, JAVIER, RAJAT, ANEU ####[address] [place], [place] [address] Potassium [Moles/Vol] 5.6 mmol/L High 3.5-5.1 [facility] ([place] Comment on above: Performed By: #### Jerrell FR, PBNP, CBC, ADIFF, TROPHS, JAVIER, RAJAT, ANEU ####[address] [place], [place] [address] Sodium [Moles/Vol] 144 mmol/L Normal 136-145 [facility] ([place] Comment on above: Performed By: #### G FR, PBNP, CBC, ADIFF, TROPHS, JAVIER, RAJAT, ANEU ####[address] [place], [place] [address] Urea nitrogen [Mass/Vol] 46 mg/dL High 7-18 [facility] ([place] Comment on above: Performed By: #### G FR, PBNP, CBC, ADIFF, TROPHS, BMP, MDW, ANEU ####[address] [place], [place] [address] CBCon 05-25-2023 Erythrocyte distribution width (RBC) [Ratio] 16.3 % High 11.5-14.5 [facility] ([place] Comment on above: Performed By: #### G FR, PBNP, CBC, ADIFF, TROPHS, BMP, MDW, ANEU ####[address] [place], [place] [address] Hematocrit (Bld) [Volume fraction] 28.6 % Low 42.0-52.0 [facility] ([place]) Comment on above: Performed By: #### G FR, PBNP, CBC, ADIFF, TROPHS, BMP, W, ANEU ####[address] [place], [place] [address] Hgb 9.5 G/dL Low 14.0-18.0 [facility] ([place] Comment on above: Performed By: #### G FR, PBNP, CBC, ADIFF, TROPHS, BMP, MDW, ANEU ####[address] [place], [place] [address] MCH (RBC) [Entitic mass] 28.4 pg Normal 27.0-31.2 [facility] ([place]) Comment on above: Performed By: #### G FR, PBNP, CBC, ADIFF, TROPHS, BMP, MDW, ANEU ####[address] [place], [place] [address] MCHC 33.2 G/dL Normal 31.8-35.4 [facility] ([place]) Comment on above: Performed By: #### G FR, PBNP, CBC, ADIFF, TROPHS, BMP, W, ANEU ####[address] [place], [place] [address] MCV (RBC) [Entitic vol] 85.7 fL Normal 80.0-94.0 A [facility] ([place]) Comment on above: Performed By: #### G FR, PBNP, CBC, ADIFF, TROPHS, BMP, MDW, ANEU ####[address] [place], [place] [address] Platelet 82 10 3/mcL Low 130-400 [facility] ([place] Comment on above: Performed By: #### Jerrell FR, PBNP, CBC, ADDEE, TROPHNia, JAVIER, RAJAT, ANEU ####[address] [place], [place] [address] Platelet mean volume (Bld) [Entitic vol] 8.2 fL Normal 7.4-10.4 [facility] ([place] Comment on above: Performed By: #### Jerrell FR, PBNP, CBC, ADDEE, TROPHS, JAVIER, RAJAT, ANEU ####[address] [place], [place] [address] RBC 3.34 10 6/mcL Low 4.04-6.13 [facility] ([place] Comment on above: Performed By: #### Jerrell FR, PBNP, CBC, ADDEE, SNEHA, JAVIER, RAJAT, ANEU ####[address] [place], [place] [address] WBC 6.8 10 3/mcL Normal 4.6-10.8 [facility] ([place] Comment on above: Performed By: #### Jerrell FR, PBNP, CBC, ADDEE, TROPHS, JAVIER, RAJAT, ANEU ####[address] [place], [place] [address] CVFLURVon 05-25-2023 FLU A PCR Negative Normal Negative [facility] ([place] Comment on above: Performed By: #### Fidencio VFLURV ####[address] [place], [place] [address] FLU B PCR Negative Normal Negative [facility] ([place] Comment on above: Performed By: #### C VFLURV ####[address] [place], [place] [address] RSV PCR Negative Normal Negative [facility] ([place] Comment on above: Performed By: #### C VFLURV ####[address] [place], [place] [address] SARS-CoV-2 (COVID-19) RNA JOSH+probe Ql (Unsp spec) Negative Normal Negative [facility] ([place] Comment on above: Result Comment: Resu lts [...] results. Performed By: #### C [facility] ####[address] [place], [place] [address] LABORATORYOrdered By: Reed Anna on 05-25-2023 FLUAV [...] ng/L Male: 0-76 ng/L Testing performed on [employer] using a homogeneous sandwich chemiluminescent immunoassay based on SnoopWall technology. Urea nitrogen [Mass/Vol] 46 mg/dL High 7 - 18 mg/dL AO ADM SS Urea nitrogen/Creatinine [Mass ratio] 26 ratio Normal 7 - 27 ratio AO ADM SS WBC (Bld) [#/Vol] 6.8 103/mcL Normal 4.6 - 10.8 10^3/mcL AO Workflow SS PBNPon 05-25-2023 Natriuretic peptide B (Bld) [Mass/Vol] 2608 pg/mL High 0-450 [facility] ([place]) Comment on above: Result Comment: NT-p roBNP results of less than 300 pg/mL effectivelyrules out acute congestive heart failure with 99% negative predictive value. Performed By: #### G FR, PBNP, CBC, ADIFF, TROPHS, BMP, RAJAT, ANEU ####[address] [place], [place] [address] TROPHSon 05-25-2023 High Sensitivity Troponin I 29 ng/L Normal 0-76 [facility] ([place] Comment on above: Result Comment: High Sensitive Troponin I Reference Ranges:Female: 0-51 ng/LMale: 0-76 ng/LTesting performed on [employer] using a homogeneous sandwich chemiluminescent immunoassay based on SnoopWall technology. Performed By: #### G FR, PBNP, CBC, JEFERSON, SNEHA, JAVIER, RAJAT, ANEU ####[address] [place], [place] [address] XR CHEST 1 VIEWon 05-25-2023 XR CHEST 1 VIEW Normal [facility] ([place] .Auto Diffon 05-24-2023 Basophil, Absolute 0.0 10 3/mcL Normal 0.0-0.2 [facility] ([place]) Comment on above: Performed By: #### M JEFERSON THOMAS ANEU, CBC ####[address] [place], [place] [address] Basophils/100 WBC (Bld) 0.6 % Normal 0.0-2.5 A [facility] ([place] Comment on above: Performed By: #### M JEFERSON THOMAS ANEU, CBC ####[address] [place], [place] [address] Eosinophil, Absolute 0.2 10 3/mcL Normal 0.0-0.4 [facility] ([place] Comment on above: Performed By: #### M JEFERSON THOMAS ANEU, CBC ####[address] [place], [place] [address] Eosinophils/100 WBC (Bld) 3.6 % Normal 0.0-7.0 [facility] ([place] Comment on above: Performed By: #### M JEFERSON THOMAS ANEU, CBC ####[address] [place], [place] [address] Lymphocyte, Absolute 1.0 10 3/mcL Normal 0.8-3.9 [facility] ([place] Comment on above: Performed By: #### M MARTHA ADIFF, ANEU, CBC ####[address] [place], [place] [address] Lymphocytes/100 WBC (Bld) 18.4 % Normal 10.0-50.0 [facility] ([place]) Comment on above: Performed By: #### M ORPH ADIFF, ANEU, CBC ####[address] [place], [place] [address] Monocyte, Absolute 0.4 10 3/mcL Normal 0.2-1.0 [facility] ([place]) Comment on above: Performed By: #### M ORPH, ADIFF, ANEU, CBC ####[address] [place], [place] [address] Monocytes/100 WBC (Bld) 7.1 % Normal 1.7-13.0 A [facility] ([place]) Comment on above: Performed By: #### M ORPH ADIFF, ANEU, CBC ####[address] [place], [place] [address] Neutrophils/100 WBC (Bld) 70.3 % Normal 37.0-80.0 [facility] ([place]) Comment on above: Performed By: #### M ORPH ADIFF, ANEU, CBC ####[address] [place], [place] [address] .GFRon 05-24-2023 GFR 42 ml/min/1.73sqm Normal [facility] ([place] Comment on above: Result Comment: GFR Population [...] #### C JANEEN PBNP, GFR ####[address] [place], [place] [address] GFR Non- 35 ml/min/1.73sqm Normal [facility] ([place] Comment on above: Result Comment: GFR Population [...] #### C MP, PBNP, GFR ####[address] [place], [place] [address] .Morphon 05-24-2023 Platelet Estimate Decreased Normal [facility] ([place] Comment on above: Performed By: #### M JEFERSON THOMAS ANEU, CBC ####[address] [place], [place] [address] .NEUABSon 05-24-2023 Neutrophil, Absolute 3.7 10 3/mcL Normal 2.9-6.2 [facility] ([place] Comment on above: Performed By: #### M JEFERSON THOMAS ANEU, CBC ####[address] [place], [place] [address] CBCon 05-24-2023 Erythrocyte distribution width (RBC) [Ratio] 15.7 % High 11.5-14.5 [facility] ([place] Comment on above: Performed By: #### M JEFERSON THOMAS ANEU, CBC ####[address] [place], [place] [address] Hematocrit (Bld) [Volume fraction] 27.2 % Low 42.0-52.0 [facility] ([place] Comment on above: Performed By: #### M ORJEFERSON LOPEZ ANEU, CBC ####[address] [place], [place] [address] Hgb 9.1 G/dL Low 14.0-18.0 [facility] ([place] Comment on above: Performed By: #### M JEFERSON THOMAS ANEU, CBC ####[address] [place], [place] [address] MCH (RBC) [Entitic mass] 28.8 pg Normal 27.0-31.2 [facility] ([place] Comment on above: Performed By: #### M ORJEFERSON LOPEZ ANEU, CBC ####[address] [place], [place] [address] MCHC 33.3 G/dL Normal 31.8-35.4 [facility] ([place] Comment on above: Performed By: #### M ORJEFERSON LOPEZ ANEU, CBC ####[address] [place], [place] [address] MCV (RBC) [Entitic vol] 86.3 fL Normal 80.0-94.0 A [facility] ([place] Comment on above: Performed By: #### M JEFERSON THOMAS ANEU, CBC ####[address] [place], [place] [address] Platelet 77 10 3/mcL Low 130-400 [facility] ([place] Comment on above: Performed By: #### M ORJEFERSON LOPEZ ANEU, CBC ####[address] [place], [place] [address] Platelet mean volume (Bld) [Entitic vol] 8.6 fL Normal 7.4-10.4 [facility] ([place] Comment on above: Performed By: #### M ORJEFERSON LOPEZ ANEU, CBC ####[address] [place], [place] [address] RBC 3.15 10 6/mcL Low 4.04-6.13 [facility] ([place] Comment on above: Performed By: #### M ORJEFERSON LOPEZ ANEU, CBC ####[address] [place], [place] [address] WBC 5.3 10 3/mcL Normal 4.6-10.8 [facility] ([place] Comment on above: Performed By: #### M JEFERSON THOMAS, ANEU, CBC ####[address] [place], [place] [address] CMPon 05-24-2023 Albumin Level 3.1 G/dL Low 3.4-4.8 [facility] ([place] Comment on above: Performed By: #### C MP, PBNP, GFR ####[address] [place], [place] [address] Albumin/Globulin [Mass ratio] 0.9 {ratio} Low 1.1-2.5 [facility] ([place] Comment on above: Performed By: #### C MP, PBNP, GFR ####[address] [place], [place] [address] ALP [Catalytic activity/Vol] 68 U/L Normal 40-135 [facility] ([place] Comment on above: Performed By: #### C MP, PBNP, GFR ####[address] [place], [place] [address] ALT [Catalytic activity/Vol] 25 U/L Normal 16-63 [facility] ([place] Comment on above: Performed By: #### C MP, PBNP, GFR ####[address] [place], [place] [address] AST [Catalytic activity/Vol] 11 U/L Normal 10-40 [facility] ([place] Comment on above: Performed By: #### C MP, PBNP, GFR ####[address] [place], [place] [address] Bili Total 0.5 mg/dL Normal 0.2-1.0 [facility] ([place] Comment on above: Result Comment: Use of this assay is not recommended for patients undergoing treatment with eltrombopag due to the potential for falsely elevated results. Performed By: #### C MP, PBNP, GFR ####[address] [place], [place] [address] BUN/Creatinine Ratio 21 ratio Normal 7-27 [facility] ([place] Comment on above: Performed By: #### C MP, PBNP, GFR ####[address] [place], [place] [address] Calcium [Mass/Vol] 8.6 mg/dL Normal 8.4-10.2 [facility] ([place] Comment on above: Performed By: #### C MP, PBNP, GFR ####[address] [place], [place] [address] Chloride [Moles/Vol] 110 mmol/L High 98-107 [facility] ([place] Comment on above: Performed By: #### C MP, PBNP, GFR ####[address] [place], [place] [address] CO2 [Moles/Vol] 31 mmol/L Normal 23-31 [facility] ([place] Comment on above: Performed By: #### C MP, PBNP, GFR ####[address] [place], [place] [address] Creatinine [Mass/Vol] 1.87 mg/dL High 0.70-1.30 [facility] ([place]) Comment on above: Performed By: #### C MP, PBNP, GFR ####[address] [place], [place] [address] Electrolyte Balance 5.0 mEq/L Normal 4.0-15.0 [facility] ([place]) Comment on above: Performed By: #### C MP, PBNP, GFR ####[address] [place], [place] [address] Globulin 3.3 G/dL Normal [facility] ([place] Comment on above: Performed By: #### C MP, PBNP, GFR ####[address] [place], [place] [address] Glucose [Mass/Vol] 177 mg/dL High 83-110 [facility] ([place] Comment on above: Performed By: #### C MP, PBNP, GFR ####[address] [place], [place] [address] Potassium [Moles/Vol] 5.4 mmol/L High 3.5-5.1 [facility] ([place]) Comment on above: Performed By: #### C MP, PBNP, GFR ####[address] [place], [place] [address] Sodium [Moles/Vol] 146 mmol/L High 136-145 [facility] ([place] Comment on above: Performed By: #### C MP, PBNP, GFR ####[address] [place], [place] [address] Total Protein 6.4 G/dL Normal 6.4-8.2 [facility] ([place] Comment on above: Performed By: #### C MP, PBNP, GFR ####[address] [place], [place] [address] Urea nitrogen [Mass/Vol] 40 mg/dL High 7-18 [facility] ([place] Comment on above: Performed By: #### C MP, PBNP, GFR ####[address] [place], [place] [address] LABORATORYOrdered By: SYSTEM SYSTEM on 05-24-2023 Albumin [...] B (Bld) [Mass/Vol] 2097 pg/mL High 0-450 [facility] ([place] Comment on above: Result Comment: NT-p roBNP results of less than 300 pg/mL effectivelyrules out acute congestive heart failure with 99% negative predictive value. Performed By: #### C MP, PBNP, GFR ####[address] [place], [place] [address] .Auto Diffon 05-17-2023 Basophil, Absolute 0.0 10 3/mcL Normal 0.0-0.2 [facility] ([place] Comment on above: Performed By: #### A DIFF, CBC, ANEU ####[address] [place], [place] [address] Basophils/100 WBC (Bld) 0.4 % Normal 0.0-2.5 A [facility] ([place] Comment on above: Performed By: #### A DIFF, CBC, ANEU ####[address] [place], [place] [address] Eosinophil, Absolute 0.2 10 3/mcL Normal 0.0-0.4 [facility] ([place] Comment on above: Performed By: #### A DIFF, CBC, ANEU ####[address] [place], [place] [address] Eosinophils/100 WBC (Bld) 3.6 % Normal 0.0-7.0 [facility] ([place] Comment on above: Performed By: #### A DIFF, CBC, ANEU ####[address] [place], [place] [address] Lymphocyte, Absolute 1.2 10 3/mcL Normal 0.8-3.9 [facility] ([place] Comment on above: Performed By: #### A DIFF, CBC, ANEU ####[address] [place], [place] [address] Lymphocytes/100 WBC (Bld) 19.6 % Normal 10.0-50.0 [facility] ([place] Comment on above: Performed By: #### A DIFF, CBC, ANEU ####[address] [place], [place] [address] Monocyte, Absolute 0.5 10 3/mcL Normal 0.2-1.0 [facility] ([place] Comment on above: Performed By: #### A DIFF, CBC, ANEU ####[address] [place], [place] [address] Monocytes/100 WBC (Bld) 7.9 % Normal 1.7-13.0 [facility] ([place]) Comment on above: Performed By: #### A DIFF, CBC, ANEU ####[address] [place], [place] [address] Neutrophils/100 WBC (Bld) 68.5 % Normal 37.0-80.0 [facility] ([place] Comment on above: Performed By: #### A DIFF, CBC, ANEU ####[address] [place], [place] [address] .GFRon 05-17-2023 GFR 47 ml/min/1.73sqm Normal [facility] ([place] Comment on above: Result Comment: GFR Population [...] FR, CMP, PBNP, A1C, TSH ####[address] [place], [place] [address] GFR Non- 39 ml/min/1.73sqm Normal [facility] ([place] Comment on above: Result Comment: GFR Population [...] FR, CMP, PBNP, A1C, TSH ####[address] [place], [place] [address] .NEUABSon 05-17-2023 Neutrophil, Absolute 4.3 10 3/mcL Normal 2.9-6.2 [facility] ([place]) Comment on above: Performed By: #### A DIFF, CBC, ANEU ####[address] [place], [place] [address] A1Con 05-17-2023 HbA1c (Bld) [Mass fraction] 7.7 % High 4.3-6.4 [facility] ([place] Comment on above: Performed By: #### G FR, CMP, PBNP, A1C, TSH ####[address] [place], [place] [address] CBCon 05-17-2023 Erythrocyte distribution width (RBC) [Ratio] 15.6 % High 11.5-14.5 [facility] ([place] Comment on above: Performed By: #### A DIFF, CBC, ANEU ####[address] [place], [place] [address] Hematocrit (Bld) [Volume fraction] 26.9 % Low 42.0-52.0 [facility] ([place] Comment on above: Performed By: #### A DIFF, CBC, ANEU ####[address] [place], [place] [address] Hgb 9.2 G/dL Low 14.0-18.0 [facility] ([place] Comment on above: Performed By: #### A DIFF, CBC, ANEU ####[address] [place], [place] [address] MCH (RBC) [Entitic mass] 29.0 pg Normal 27.0-31.2 [facility] ([place] Comment on above: Performed By: #### A DIFF, CBC, ANEU ####[address] [place], [place] [address] MCHC 34.1 G/dL Normal 31.8-35.4 [facility] ([place] Comment on above: Performed By: #### A DIFF, CBC, ANEU ####[address] [place], [place] [address] MCV (RBC) [Entitic vol] 85.0 fL Normal 80.0-94.0 A [facility] ([place] Comment on above: Performed By: #### A DIFF, CBC, ANEU ####[address] [place], [place] [address] Platelet 91 10 3/mcL Low 130-400 [facility] ([place] Comment on above: Performed By: #### A DIFF, CBC, ANEU ####[address] [place], [place] [address] Platelet mean volume (Bld) [Entitic vol] 9.1 fL Normal 7.4-10.4 [facility] ([place] Comment on above: Performed By: #### A DIFF, CBC, ANEU ####[address] [place], [place] [address] RBC 3.16 10 6/mcL Low 4.04-6.13 [facility] ([place] Comment on above: Performed By: #### A DIFF, CBC, ANEU ####[address] [place], [place] [address] WBC 6.3 10 3/mcL Normal 4.6-10.8 [facility] ([place] Comment on above: Performed By: #### A DIFF, CBC, ANEU ####[address] [place], [place] [address] CMPon 05-17-2023 Albumin Level 3.1 G/dL Low 3.4-4.8 [facility] ([place] Comment on above: Performed By: #### G FR, CMP, PBNP, A1C, TSH ####[address] [place], [place] [address] Albumin/Globulin [Mass ratio] 1.1 {ratio} Normal 1.1-2.5 [facility] ([place] Comment on above: Performed By: #### Jerrell FR, CMP, PBNP, A1C, TSH ####[address] [place], [place] [address] ALP [Catalytic activity/Vol] 66 U/L Normal 40-135 [facility] ([place] Comment on above: Performed By: #### G FR, CMP, PBNP, A1C, TSH ####[address] [place], [place] [address] ALT [Catalytic activity/Vol] 44 U/L Normal 16-63 [facility] ([place] Comment on above: Performed By: #### G FR, CMP, PBNP, A1C, TSH ####[address] [place], [place] [address] AST [Catalytic activity/Vol] 17 U/L Normal 10-40 [facility] ([place] Comment on above: Performed By: #### G FR, CMP, PBNP, A1C, TSH ####[address] [place], [place] [address] Bili Total 0.5 mg/dL Normal 0.2-1.0 [facility] ([place] Comment on above: Result Comment: Use of this assay is not recommended for patients undergoing treatment with eltrombopag due to the potential for falsely elevated results. Performed By: #### G FR, CMP, PBNP, A1C, TSH ####[address] [place], [place] [address] BUN/Creatinine Ratio 34 ratio High 7-27 [facility] ([place] Comment on above: Performed By: #### G FR, CMP, PBNP, A1C, TSH ####[address] [place], [place] [address] Calcium [Mass/Vol] 8.5 mg/dL Normal 8.4-10.2 [facility] ([place] Comment on above: Performed By: #### Jerrell FR, CMP, PBNP, A1C, TSH ####[address] [place], [place] [address] Chloride [Moles/Vol] 109 mmol/L High 98-107 [facility] ([place] Comment on above: Performed By: #### G FR, CMP, PBNP, A1C, TSH ####[address] [place], [place] [address] CO2 [Moles/Vol] 28 mmol/L Normal 23-31 [facility] ([place] Comment on above: Performed By: #### G FR, CMP, PBNP, A1C, TSH ####[address] [place], [place] [address] Creatinine [Mass/Vol] 1.70 mg/dL High 0.70-1.30 [facility] ([place] Comment on above: Performed By: #### G FR, CMP, PBNP, A1C, TSH ####[address] [place], [place] [address] Electrolyte Balance 6.0 mEq/L Normal 4.0-15.0 [facility] ([place]) Comment on above: Performed By: #### G FR, CMP, PBNP, A1C, TSH ####[address] [place], [place] [address] Globulin 2.8 G/dL Normal [facility] ([place] Comment on above: Performed By: #### G FR, CMP, PBNP, A1C, TSH ####[address] [place], [place] [address] Glucose [Mass/Vol] 184 mg/dL High 83-110 [facility] ([place] Comment on above: Performed By: #### G FR, CMP, PBNP, A1C, TSH ####[address] [place], [place] [address] Potassium [Moles/Vol] 5.0 mmol/L Normal 3.5-5.1 [facility] ([place] Comment on above: Performed By: #### G FR, CMP, PBNP, A1C, TSH ####[address] [place], [place] [address] Sodium [Moles/Vol] 143 mmol/L Normal 136-145 [facility] ([place] Comment on above: Performed By: #### G FR, CMP, PBNP, A1C, TSH ####[address] [place], [place] [address] Total Protein 5.9 G/dL Low 6.4-8.2 [facility] ([place] Comment on above: Performed By: #### G FR, CMP, PBNP, A1C, TSH ####[address] [place], [place] [address] Urea nitrogen [Mass/Vol] 58 mg/dL High 7-18 [facility] ([place] Comment on above: Performed By: #### G FR, CMP, PBNP, A1C, TSH ####[address] [place], [place] [address] LABORATORYOrdered By: SYSTEM SYSTEM on 05-17-2023 Albumin [...] B (Bld) [Mass/Vol] 2219 pg/mL High 0-450 [facility] ([place]) Comment on above: Result Comment: NT-p roBNP results of less than 300 pg/mL effectivelyrules out acute congestive heart failure with 99% negative predictive value. Performed By: #### G FR, CMP, PBNP, A1C, TSH ####[address] [place], [place] [address] TSHon 05-17-2023 TSH Qn 2.36 m[IU]/L Normal 0.36-3.74 [facility] ([place] Comment on above: Performed By: #### G FR, CMP, PBNP, A1C, TSH ####[address] [place], [place] [address] .Auto Diffon 05-08-2023 Basophil, Absolute 0.0 10 3/mcL Normal 0.0-0.2 [facility] ([place] Comment on above: Performed By: #### G FR, CBC, MG, ANEU, ADIFF, BMP ####[address] [place], [place] [address] Basophils/100 WBC (Bld) 0.0 % Normal 0.0-2.5 A [facility] ([place] Comment on above: Performed By: #### Jerrell FR, CBC, MG, ANEU, ADIFF, BMP ####[address] [place], [place] [address] Eosinophil, Absolute 0.0 10 3/mcL Normal 0.0-0.4 [facility] ([place] Comment on above: Performed By: #### Jerrell FR, CBC, MG, ANEU, ADIFF, BMP ####[address] [place], [place] [address] Eosinophils/100 WBC (Bld) 0.0 % Normal 0.0-7.0 [facility] ([place] Comment on above: Performed By: #### G FR, CBC, MG, ANEU, ADIFF, BMP ####[address] [place], [place] [address] Lymphocyte, Absolute 0.7 10 3/mcL Low 0.8-3.9 [facility] ([place] Comment on above: Performed By: #### G FR, CBC, MG, ANEU, ADIFF, BMP ####[address] [place], [place] [address] Lymphocytes/100 WBC (Bld) 11.0 % Normal 10.0-50.0 [facility] ([place] Comment on above: Performed By: #### G FR, CBC, MG, ANEU, ADIFF, BMP ####[address] [place], [place] [address] Monocyte, Absolute 0.1 10 3/mcL Low 0.2-1.0 [facility] ([place] Comment on above: Performed By: #### G FR, CBC, MG, ANEU, ADIFF, BMP ####[address] [place], [place] [address] Monocytes/100 WBC (Bld) 1.4 % Low 1.7-13.0 A [facility] ([place] Comment on above: Performed By: #### G FR, CBC, MG, ANEU, ADIFF, BMP ####[address] [place], [place] [address] Neutrophils/100 WBC (Bld) 87.6 % High 37.0-80.0 [facility] ([place] Comment on above: Performed By: #### G FR, CBC, MG, ANEU, ADIFF, BMP ####[address] [place], [place] [address] .GFRon 05-08-2023 GFR Non- 26 ml/min/1.73sqm Normal [facility] ([place] Comment on above: Result Comment: GFR Population [...] CBC, MG, ANEU, ADIFF, BMP ####[address] [place], [place] [address] GFR 31 ml/min/1.73sqm Normal [facility] ([place] Comment on above: Result Comment: GFR Population [...] CBC, MG, ANEU, ADIFF, BMP ####[address] [place], [place] [address] .NEUABSon 05-08-2023 Neutrophil, Absolute 5.2 10 3/mcL Normal 2.9-6.2 [facility] ([place] Comment on above: Performed By: #### G FR, CBC, MG, ANEU, ADIFF, BMP ####[address] [place], [place] [address] BMPon 05-08-2023 BUN/Creatinine Ratio 22 ratio Normal 7-27 [facility] ([place] Comment on above: Performed By: #### G FR, CBC, MG, ANEU, ADIFF, BMP ####[address] [place], [place] [address] Calcium [Mass/Vol] 9.4 mg/dL Normal 8.4-10.2 [facility] ([place] Comment on above: Performed By: #### G FR, CBC, MG, ANEU, ADIFF, BMP ####[address] [place], [place] [address] Chloride [Moles/Vol] 103 mmol/L Normal 98-107 [facility] ([place] Comment on above: Performed By: #### G FR, CBC, MG, ANEU, ADIFF, BMP ####[address] [place], [place] [address] CO2 [Moles/Vol] 31 mmol/L Normal 23-31 [facility] ([place] Comment on above: Performed By: #### G FR, CBC, MG, ANEU, ADIFF, BMP ####[address] [place], [place] [address] Creatinine [Mass/Vol] 2.42 mg/dL High 0.70-1.30 [facility] ([place] Comment on above: Performed By: #### G FR, CBC, MG, ANEU, ADIFF, BMP ####[address] [place], [place] [address] Electrolyte Balance 5.0 mEq/L Normal 4.0-15.0 [facility] ([place]) Comment on above: Performed By: #### G FR, CBC, MG, ANEU, ADIFF, BMP ####[address] [place], [place] [address] Glucose [Mass/Vol] 211 mg/dL High 83-110 [facility] ([place] Comment on above: Performed By: #### G FR, CBC, MG, ANEU, ADIFF, BMP ####[address] [place], [place] [address] Potassium [Moles/Vol] 5.9 mmol/L High 3.5-5.1 [facility] ([place] Comment on above: Performed By: #### G FR, CBC, MG, ANEU, ADIFF, BMP ####[address] [place], [place] [address] Sodium [Moles/Vol] 139 mmol/L Normal 136-145 [facility] ([place] Comment on above: Performed By: #### G FR, CBC, MG, ANEU, ADIFF, BMP ####[address] [place], [place] [address] Urea nitrogen [Mass/Vol] 54 mg/dL High 7-18 [facility] ([place] Comment on above: Performed By: #### G FR, CBC, MG, ANEU, ADIFF, BMP ####[address] [place], [place] [address] CBCon 05-08-2023 Erythrocyte distribution width (RBC) [Ratio] 15.2 % High 11.5-14.5 [facility] ([place] Comment on above: Performed By: #### G FR, CBC, MG, ANEU, ADIFF, BMP ####[address] [place], [place] [address] Hematocrit (Bld) [Volume fraction] 28.2 % Low 42.0-52.0 [facility] ([place] Comment on above: Performed By: #### G FR, CBC, MG, ANEU, ADIFF, BMP ####[address] [place], [place] [address] Hgb 9.5 G/dL Low 14.0-18.0 [facility] ([place] Comment on above: Performed By: #### G FR, CBC, MG, ANEU, ADIFF, BMP ####[address] [place], [place] [address] MCH (RBC) [Entitic mass] 28.2 pg Normal 27.0-31.2 [facility] ([place] Comment on above: Performed By: #### G FR, CBC, MG, ANEU, ADIFF, BMP ####[address] [place], [place] [address] MCHC 33.5 G/dL Normal 31.8-35.4 [facility] ([place] Comment on above: Performed By: #### G FR, CBC, MG, ANEU, ADIFF, BMP ####[address] [place], [place] [address] MCV (RBC) [Entitic vol] 84.2 fL Normal 80.0-94.0 [facility] ([place] Comment on above: Performed By: #### G FR, CBC, MG, ANEU, ADIFF, BMP ####[address] [place], [place] [address] Platelet 106 10 3/mcL Low 130-400 [facility] ([place] Comment on above: Performed By: #### G FR, CBC, MG, ANEU, ADIFF, BMP ####[address] [place], [place] [address] Platelet mean volume (Bld) [Entitic vol] 9.5 fL Normal 7.4-10.4 [facility] ([place] Comment on above: Performed By: #### G FR, CBC, MG, ANEU, ADIFF, BMP ####[address] [place], [place] [address] RBC 3.36 10 6/mcL Low 4.04-6.13 [facility] ([place] Comment on above: Performed By: #### G FR, CBC, MG, ANEU, ADIFF, BMP ####[address] [place], [place] [address] WBC 6.0 10 3/mcL Normal 4.6-10.8 [facility] ([place] Comment on above: Performed By: #### G FR, CBC, MG, ANEU, ADIFF, BMP ####[address] [place], [place] [address] LABORATORYOrdered By: Zia Milton on 05-08-2023 Blood Glucose Testing Reason Routine (05/08/23 11:57 AM) [facility] Work Phone: Glucose [Mass/Vol] 301 mg/dL High 82 - 115 mg/dL [facility] Work Phone: LABORATORYOrdered By: Johnnie Bustos on 05-08-2023 Blood Glucose Testing Reason Routine (05/08/23 8:39 AM) [facility] Work Phone: Glucose [Mass/Vol] 186 mg/dL High 82 - 115 mg/dL [facility] Work Phone: LABORATORYOrdered By: SYSTEM SYSTEM [...] 05-08-2023 Magnesium [Mass/Vol] 1.9 mg/dL Normal 1.8-2.4 [facility] ([place] Comment on above: Performed By: #### G FR, CBC, MG, ANEU, ADIFF, BMP ####[address] [place], [place] [address] .Auto Diffon 05-07-2023 Basophil, Absolute 0.1 10 3/mcL Normal 0.0-0.2 [facility] ([place] Comment on above: Performed By: #### C BC, ADIFF, BMP, PBNP, GFR, ANEU, MDW, TROPHS ####[address] [place], [place] [address] Basophils/100 WBC (Bld) 0.7 % Normal 0.0-2.5 A [facility] ([place] Comment on above: Performed By: #### C BC, ADIFF, BMP, PBNP, GFR, ANEU, MDW, TROPHS ####[address] [place], [place] [address] Eosinophil, Absolute 0.4 10 3/mcL Normal 0.0-0.4 [facility] ([place] Comment on above: Performed By: #### C BC, ADIFF, BMP, PBNP, GFR, ANEU, MDW, TROPHS ####[address] [place], [place] [address] Eosinophils/100 WBC (Bld) 5.2 % Normal 0.0-7.0 [facility] ([place] Comment on above: Performed By: #### C BC, ADIFF, BMP, PBNP, GFR, ANEU, MDW, TROPHS ####[address] [place], [place] [address] Lymphocyte, Absolute 1.6 10 3/mcL Normal 0.8-3.9 [facility] ([place] Comment on above: Performed By: #### C BC, ADIFF, BMP, PBNP, GFR, ANEU, W, TROPHS ####[address] [place], [place] [address] Lymphocytes/100 WBC (Bld) 21.2 % Normal 10.0-50.0 [facility] ([place] Comment on above: Performed By: #### C BC, ADIFF, BMP, PBNP, GFR, ANEU, MDW, TROPHS ####[address] [place], [place] [address] Monocyte, Absolute 0.5 10 3/mcL Normal 0.2-1.0 [facility] ([place] Comment on above: Performed By: #### C BC, ADIFF, BMP, PBNP, GFR, ANEU, MDW, TROPHS ####[address] [place], [place] [address] Monocytes/100 WBC (Bld) 6.7 % Normal 1.7-13.0 [facility] ([place] Comment on above: Performed By: #### C BC, ADIFF, BMP, PBNP, GFR, ANEU, MDW, TROPHS ####[address] [place], [place] [address] Neutrophils/100 WBC (Bld) 66.2 % Normal 37.0-80.0 [facility] ([place] Comment on above: Performed By: #### C BC, ADIFF, BMP, PBNP, GFR, ANEU, MDW, TROPHS ####[address] [place], [place] [address] .GFRon 05-07-2023 GFR 31 ml/min/1.73sqm Normal [facility] ([place] Comment on above: Result Comment: GFR Population [...] PBNP, GFR, ANEU, MDW, TROPHS ####[address] [place], [place] [address] GFR Non- 26 ml/min/1.73sqm Normal [facility] ([place] Comment on above: Result Comment: GFR Population [...] PBNP, GFR, ANEU, MDW, TROPHS ####[address] [place], [place] [address] .MDWon 05-07-2023 Monocyte Distribution Width 17.51 Normal 0.00-20.00 [facility] ([place] Comment on above: Result Comment: For ED adult patients suspected of sepsis, MDW<=20.0 does not rule out sepsis or risk of sepsis Performed By: #### C BC, ADIFF, BMP, PBNP, GFR, ANEU, MDW, TROPHS ####[address] [place], [place] [address] .NEUABSon 05-07-2023 Neutrophil, Absolute 5.1 10 3/mcL Normal 2.9-6.2 [facility] ([place] Comment on above: Performed By: #### C BC, ADIFF, BMP, PBNP, GFR, ANEU, MDW, TROPHS ####[address] [place], [place] [address] BMPon 05-07-2023 BUN/Creatinine Ratio 18 ratio Normal 7-27 [facility] ([place] Comment on above: Performed By: #### C BC, ADIFF, BMP, PBNP, GFR, ANEU, MDW, TROPHS ####[address] [place], [place] [address] Calcium [Mass/Vol] 9.3 mg/dL Normal 8.4-10.2 [facility] ([place] Comment on above: Performed By: #### C BC, ADIFF, BMP, PBNP, GFR, ANEU, MDW, TROPHS ####[address] [place], [place] [address] Chloride [Moles/Vol] 104 mmol/L Normal 98-107 [facility] ([place] Comment on above: Performed By: #### C BC, ADIFF, BMP, PBNP, GFR, ANEU, MDW, TROPHS ####[address] [place], [place] [address] CO2 [Moles/Vol] 37 mmol/L High 23-31 [facility] ([place] Comment on above: Performed By: #### C BC, ADIFF, BMP, PBNP, GFR, ANEU, MDW, TROPHS ####[address] [place], [place] [address] Creatinine [Mass/Vol] 2.43 mg/dL High 0.70-1.30 [facility] ([place] Comment on above: Performed By: #### C BC, ADIFF, BMP, PBNP, GFR, ANEU, MDW, TROPHS ####[address] [place], [place] [address] Electrolyte Balance 4.0 mEq/L Normal 4.0-15.0 [facility] ([place]) Comment on above: Performed By: #### C BC, ADIFF, BMP, PBNP, GFR, ANEU, MDW, TROPHS ####[address] [place], [place] [address] Glucose [Mass/Vol] 129 mg/dL High 83-110 [facility] ([place] Comment on above: Performed By: #### C BC, ADIFF, BMP, PBNP, GFR, ANEU, MDW, TROPHS ####[address] [place], [place] [address] Potassium [Moles/Vol] 5.2 mmol/L High 3.5-5.1 [facility] ([place] Comment on above: Performed By: #### C BC, ADIFF, BMP, PBNP, GFR, ANEU, MDW, TROPHS ####[address] [place], [place] [address] Sodium [Moles/Vol] 145 mmol/L Normal 136-145 [facility] ([place] Comment on above: Performed By: #### C BC, ADIFF, BMP, PBNP, GFR, ANEU, MDW, TROPHS ####[address] [place], [place] [address] Urea nitrogen [Mass/Vol] 44 mg/dL High 7-18 [facility] ([place] Comment on above: Performed By: #### C BC, ADIFF, BMP, PBNP, GFR, ANEU, MDW, TROPHS ####[address] [place], [place] [address] CBCon 05-07-2023 Erythrocyte distribution width (RBC) [Ratio] 15.3 % High 11.5-14.5 [facility] ([place] Comment on above: Performed By: #### C BC, ADIFF, BMP, PBNP, GFR, ANEU, MDW, TROPHS ####[address] [place], [place] [address] Hematocrit (Bld) [Volume fraction] 29.4 % Low 42.0-52.0 [facility] ([place] Comment on above: Performed By: #### C BC, ADIFF, BMP, PBNP, GFR, ANEU, MDW, TROPHS ####[address] [place], [place] [address] Hgb 9.9 G/dL Low 14.0-18.0 [facility] ([place] Comment on above: Performed By: #### C BC, ADIFF, BMP, PBNP, GFR, ANEU, MDW, TROPHS ####[address] [place], [place] [address] MCH (RBC) [Entitic mass] 28.2 pg Normal 27.0-31.2 [facility] ([place] Comment on above: Performed By: #### C BC, ADIFF, BMP, PBNP, GFR, ANEU, MDW, TROPHS ####[address] [place], [place] [address] MCHC 33.5 G/dL Normal 31.8-35.4 [facility] ([place] Comment on above: Performed By: #### C BC, ADIFF, BMP, PBNP, GFR, ANEU, MDW, TROPHS ####[address] [place], [place] [address] MCV (RBC) [Entitic vol] 84.3 fL Normal 80.0-94.0 A [facility] ([place] Comment on above: Performed By: #### C BC, ADIFF, BMP, PBNP, GFR, ANEU, MDW, TROPHS ####[address] [place], [place] [address] Platelet 134 10 3/mcL Normal 130-400 [facility] ([place] Comment on above: Performed By: #### C BC, ADIFF, BMP, PBNP, GFR, ANEU, MDW, TROPHS ####[address] [place], [place] [address] Platelet mean volume (Bld) [Entitic vol] 8.8 fL Normal 7.4-10.4 [facility] ([place] Comment on above: Performed By: #### C BC, ADIFF, BMP, PBNP, GFR, ANEU, MDW, TROPHS ####[address] [place], [place] [address] RBC 3.49 10 6/mcL Low 4.04-6.13 [facility] ([place] Comment on above: Performed By: #### C BC, ADIFF, BMP, PBNP, GFR, ANEU, MDW, TROPHS ####[address] [place], [place] [address] WBC 7.7 10 3/mcL Normal 4.6-10.8 [facility] ([place] Comment on above: Performed By: #### C BC, ADDEE, BMP, PBNP, GFR, KARRIE, RAJAT, TROPHS ####[address] [place], [place] [address] LABORATORYOrdered By: Maxine Ingram on 05-07-2023 Blood Glucose Testing Reason Routine (05/07/23 9:37 PM) [facility] Work Phone: Glucose [Mass/Vol] 368 mg/dL High 82 - 115 mg/dL [facility] Work Phone: LABORATORYOrdered By: SYSTEM SYSTEM [...] B (Bld) [Mass/Vol] 1374 pg/mL High 0-450 [facility] ([place] Comment on above: Result Comment: NT-p roBNP results of less than 300 pg/mL effectivelyrules out acute congestive heart failure with 99% negative predictive value. Performed By: #### C BC, ADDEE, BMP, PBNP, GFR, RAJAT YOON, SNEHA ####[address] [place], [place] [address] TROPHSon 05-07-2023 Troponin I High Sensitivity 22.1 ng/L Normal 0.0-76.2 [facility] ([place] Comment on above: Performed By: #### C BC, ADIFF, BMP, PBNP, GFR, RAJAT YOON, SNEHA ####[address] [place], [place] [address] XR CHEST 1 VIEWon 05-07-2023 XR CHEST 1 VIEW Normal [facility] ([place] Basophil percentageOrdered B y: Talya Nichols on 05-04-2023 Bilirubin [Mass/Vol] 0.50 mg/dL 0.20-1.00 [facility] Comment on above: For patients on eltr ombopag therapy, use of Dimension Burt TBIL is not recommended. Chloride [Moles/Vol] 102 mmol/L 98-107 [facility] Glucose [Mass/Vol] 212 mg/dL 74-106 [facility] Comment on above: Glucose result great er than or equal to 200 mg/dLsuggests DIABETES MELLITUS per A.D.A. criteria. Hemoglobin (Bld) [Mass/Vol] 8.8 g/dL 13.0-16.5 [facility] Potassium [Moles/Vol] 4.3 mmol/L 3.5-5.1 [facility] Protein [Mass/Vol] 6.8 g/dL 6.4-8.2 [facility] Sodium [Moles/Vol] 143 mmol/L 136-145 [facility] WBC (Bld) [#/Vol] 5.0 10*3/uL 4.4-11.0 [facility] Determination of erythrocyte mean corpuscular volume (MCV)Ordered By: Talya Nichols on 05-04-2023 MCV (RBC) [Entitic vol] 91.9 fL 80-94 [facility] Erythrocyte distribution wid th ratioOrdered By: Talya Nichols on 05-04-2023 Erythrocyte distribution width (RBC) [Ratio] 14.1 % 11.6-14.6 [facility] Erythrocyte distribution wid th standard deviationOrdered By: Talya Nichols on 05-04-2023 Erythrocyte distribution width (RBC) [Entitic vol] 47.2 fL 35.1-43.9 [facility] Hematocrit Auto (Bld) [Volum e fraction]Ordered By: Talya Nichols on 05-04-2023 Hematocrit (Bld) [Volume fraction] 29.6 % 40-54 [facility] - Chemistry and C hemistry - challengeOrdered By: Talya Nichols on 05-04-2023 Albumin/Globulin [Mass ratio] 0.9 {ratio} 0.9-2.4 [facility] ALP [Catalytic activity/Vol] 74 U/L 45-117 [facility] ALT [Catalytic activity/Vol] 23 U/L 16-61 [facility] CO2 [Moles/Vol] 37.0 mmol/L 21.0-32.0 [facility] Globulin (S) [Mass/Vol] 3.6 g/dL 2.2-4.2 [facility] Natriuretic peptide B (Bld) [Mass/Vol] 253.6 pg/mL 0-100 [facility] Urea nitrogen/Creatinine [Mass ratio] 22.9 mg/mg 10-20 [facility] - Hematology and Cell countsOrdered By: Talya Nichols on 05-04-2023 MCH (RBC) [Entitic mass] 27.3 pg 27.0-32.0 [facility] MCHC (RBC) [Mass/Vol] 29.7 g/dL 32-36 [facility] Platelet mean volume (Bld) [Entitic vol] 12.2 fL 6.2-12.0 [facility] Platelets (Bld) [#/Vol] 122 10*3/uL 150-450 [facility] No Panel InformationOrdered By: Talya Nichols on 05-04-2023 Estimated GFR (MDRD) Amer 39 mL/min >60 [facility] Comment on above: GFR Calc Estimated GFR (MDRD) Non-Af Amer 32 mL/min >60 [facility] Comment on above: Non- GFR Calc RBC Auto (Bld) [#/Vol]Ordere d By: Talya Nichols on 05-04-2023 RBC (Bld) [#/Vol] 3.22 10*6/uL 4.6-6.2 [facility] Serum or plasma calcium elmira urement (mass/volume)Ordered By: Talya Nichols on 05-04-2023 Calcium [Mass/Vol] 10.5 mg/dL 8.5-10.1 [facility] Serum or plasma creatinine m easurement (mass/volume)Ordered By: Talya Nichols on 05-04-2023 Creatinine [Mass/Vol] 2.10 mg/dL 0.70-1.30 [facility] Comment on above: The validity of the calculated GFR & GFRAA in patients over 70 years has not been determined. Clinical correlation is essential. Serum or plasma urea nitroge n measurement (mass/volume)Ordered By: Talya Nichols on 05-04-2023 Urea nitrogen [Mass/Vol] 48 mg/dL 7-18 [facility] Thin prep Papanicolaou smear with manual screeningOrdered By: Talya Nichols on 05-04-2023 Thin prep Papanicolaou smear with manual screening 3.2 g/dL 3.2-5.0 [facility] Thin prep Papanicolaou smear with manual screening 17 U/L 15-37 [facility] Thin prep Papanicolaou smear with manual screening 4 5-15 [facility] Absolute lymphocyte countOrd ered By: Frederick Logan on 04-30-2023 Lymphocytes Auto (Unsp spec) [#/Vol] 1.03 10*3/uL 0.83-4.51 [facility] Automated lymphocyte count a s percentage of total leukocytesOrdered By: Frederick Logan on 04-30-2023 Lymphocytes/100 WBC Auto (Unsp spec) 24.1 % 19-41 [facility] Basophil percentageOrdered B y: Frederick Logan on 04-30-2023 Basophils/100 WBC (Bld) 0.5 % 0-1 [facility] Chloride [Moles/Vol] 112 mmol/L 98-107 [facility] Eosinophils/100 WBC (Bld) 5.6 % 0-5 [facility] Glucose [Mass/Vol] 131 mg/dL 74-106 [facility] Comment on above: Fasting Glucose resu lt greater than or equal to 126 mg/dL suggests DIABETES MELLITUS per A.D.A. criteria. Hemoglobin (Bld) [Mass/Vol] 8.3 g/dL 13.0-16.5 [facility] Monocytes/100 WBC (Bld) 9.3 % 0-10 [facility] Neutrophils (Bld) [#/Vol] 2.6 10*3/uL 2.0-7.7 [facility] Neutrophils/100 WBC (Bld) 60.3 % 47-70 [facility] Potassium [Moles/Vol] 4.2 mmol/L 3.5-5.1 [facility] Sodium [Moles/Vol] 147 mmol/L 136-145 [facility] WBC (Bld) [#/Vol] 4.3 10*3/uL 4.4-11.0 [facility] Determination of erythrocyte mean corpuscular volume (MCV)Ordered By: Frederick Logan on 04-30-2023 MCV (RBC) [Entitic vol] 90.9 fL 80-94 [facility] Erythrocyte distribution wid th ratioOrdered By: Frederick Logan on 04-30-2023 Erythrocyte distribution width (RBC) [Ratio] 14.2 % 11.6-14.6 [facility] Erythrocyte distribution wid th standard deviationOrdered By: Frederick Logan on 04-30-2023 Erythrocyte distribution width (RBC) [Entitic vol] 46.7 fL 35.1-43.9 [facility] Hematocrit Auto (Bld) [Volum e fraction]Ordered By: Frederick Logan on 04-30-2023 Hematocrit (Bld) [Volume fraction] 28.0 % 40-54 [facility] Immature granulocytes/100 WB C Auto (Bld)Ordered By: Frederick Logan on 04-30-2023 Immature granulocytes/100 WBC (Bld) 0.200 % 0.0-0.9 [facility] Comment on above: IG% - Immature Granu locytes (promyelocytes, myelocytes and metamyelocytes) > 1% indicates that a LEFT SHIFT is Present. Laboratory - Chemistry and C hemistry - challengeOrdered By: Frederick Logan on 04-30-2023 CO2 [Moles/Vol] 34.0 mmol/L 21.0-32.0 [facility] Natriuretic peptide B (Bld) [Mass/Vol] 292.3 pg/mL 0-100 [facility] Urea nitrogen/Creatinine [Mass ratio] 36.8 mg/mg 10-20 [facility] Laboratory - Hematology and Cell countsOrdered By: Frederick Logan on 04-30-2023 MCH (RBC) [Entitic mass] 26.9 pg 27.0-32.0 [facility] MCHC (RBC) [Mass/Vol] 29.6 g/dL 32-36 [facility] Nucleated RBC/100 WBC (Bld) [Ratio] 0 % 0-5 [facility] Platelet mean volume (Bld) [Entitic vol] 11.9 fL 6.2-12.0 [facility] Platelets (Bld) [#/Vol] 109 10*3/uL 150-450 [facility] No Panel InformationOrdered By: Frederick Logan on 04-30-2023 Estimated Creatinine Clearance Calc 28.55 ml/min [facility] Estimated GFR (MDRD) Amer 40 mL/min >60 [facility] Comment on above: GFR Calc Estimated GFR (MDRD) Non-Af Amer 33 mL/min >60 [facility] Comment on above: Non- GFR Calc RBC Auto (Bld) [#/Vol]Ordere d By: Frederick Logan on 04-30-2023 RBC (Bld) [#/Vol] 3.08 10*6/uL 4.6-6.2 [facility] Serum or plasma calcium elmira urement (mass/volume)Ordered By: Frederick Logan on 04-30-2023 Calcium [Mass/Vol] 9.0 mg/dL 8.5-10.1 [facility] Serum or plasma creatinine m easurement (mass/volume)Ordered By: Frederick Logan on 04-30-2023 Creatinine [Mass/Vol] 2.04 mg/dL 0.70-1.30 [facility] Comment on above: The validity of the calculated GFR & GFRAA in patients over 70 years has not been determined. Clinical correlation is essential. Serum or plasma urea nitroge n measurement (mass/volume)Ordered By: Frederick Logan on 04-30-2023 Urea nitrogen [Mass/Vol] 75 mg/dL 7-18 [facility] Thin prep Papanicolaou smear with manual screeningOrdered By: Frederick Logan on 04-30-2023 Thin prep Papanicolaou smear with manual screening 1 5-15 [facility] Absolute lymphocyte countOrd ered By: John Anders on 04-26-2023 Lymphocytes Auto (Unsp spec) [#/Vol] 1.40 10*3/uL 0.83-4.51 [facility] Automated lymphocyte count a s percentage of total leukocytesOrdered By: John Anders on 04-26-2023 Lymphocytes/100 WBC Auto (Unsp spec) 24.7 % 19-41 [facility] Basophil percentageOrdered B y: John Anders on 04-26-2023 Basophils/100 WBC (Bld) 0.7 % 0-1 [facility] Chloride [Moles/Vol] 101 mmol/L 98-107 [facility] Eosinophils/100 WBC (Bld) 6.0 % 0-5 [facility] Glucose [Mass/Vol] 129 mg/dL 74-106 [facility] Comment on above: Fasting Glucose resu lt greater than or equal to 126 mg/dL suggests DIABETES MELLITUS per A.D.A. criteria. Hemoglobin (Bld) [Mass/Vol] 9.4 g/dL 13.0-16.5 [facility] Monocytes/100 WBC (Bld) 8.8 % 0-10 [facility] Neutrophils (Bld) [#/Vol] 3.4 10*3/uL 2.0-7.7 [facility] Neutrophils/100 WBC (Bld) 59.6 % 47-70 [facility] Potassium [Moles/Vol] 3.8 mmol/L 3.5-5.1 [facility] Sodium [Moles/Vol] 142 mmol/L 136-145 [facility] WBC (Bld) [#/Vol] 5.7 10*3/uL 4.4-11.0 [facility] Determination of erythrocyte mean corpuscular volume (MCV)Ordered By: John Anders on 04-26-2023 MCV (RBC) [Entitic vol] 88.3 fL 80-94 [facility] Erythrocyte distribution wid th ratioOrdered By: John Anders on 04-26-2023 Erythrocyte distribution width (RBC) [Ratio] 14.6 % 11.6-14.6 [facility] Erythrocyte distribution wid th standard deviationOrdered By: John Anders on 04-26-2023 Erythrocyte distribution width (RBC) [Entitic vol] 46.8 fL 35.1-43.9 [facility] Hematocrit Auto (Bld) [Volum e fraction]Ordered By: John Anders on 04-26-2023 Hematocrit (Bld) [Volume fraction] 30.2 % 40-54 [facility] Immature granulocytes/100 WB C Auto (Bld)Ordered By: John Anders on 04-26-2023 Immature granulocytes/100 WBC (Bld) 0.200 % 0.0-0.9 [facility] Comment on above: IG% - Immature Granu locytes (promyelocytes, myelocytes and metamyelocytes) > 1% indicates that a LEFT SHIFT is Present. Laboratory - Chemistry and C hemistry - challengeOrdered By: John Anders on 04-26-2023 CO2 [Moles/Vol] 31.0 mmol/L 21.0-32.0 [facility] Urea nitrogen/Creatinine [Mass ratio] 23.9 mg/mg 10-20 [facility] Laboratory - Hematology and Cell countsOrdered By: John Anders on 04-26-2023 MCH (RBC) [Entitic mass] 27.5 pg 27.0-32.0 [facility] MCHC (RBC) [Mass/Vol] 31.1 g/dL 32-36 [facility] Nucleated RBC/100 WBC (Bld) [Ratio] 0 % 0-5 [facility] Platelet mean volume (Bld) [Entitic vol] 11.7 fL 6.2-12.0 [facility] Platelets (Bld) [#/Vol] 123 10*3/uL 150-450 [facility] No Panel InformationOrdered By: John Anders on 04-26-2023 Estimated Creatinine Clearance Calc 23.25 ml/min [facility] Estimated GFR (MDRD) Amer 33 mL/min >60 [facility] Comment on above: GFR Calc Estimated GFR (MDRD) Non-Af Amer 27 mL/min >60 [facility] Comment on above: Non- GFR Calc RBC Auto (Bld) [#/Vol]Ordere d By: John Anders on 04-26-2023 RBC (Bld) [#/Vol] 3.42 10*6/uL 4.6-6.2 [facility] Serum or plasma calcium elmira urement (mass/volume)Ordered By: John Anders on 04-26-2023 Calcium [Mass/Vol] 9.9 mg/dL 8.5-10.1 [facility] Serum or plasma creatinine m easurement (mass/volume)Ordered By: John Anders on 04-26-2023 Creatinine [Mass/Vol] 2.43 mg/dL 0.70-1.30 [facility] Comment on above: The validity of the calculated GFR & GFRAA in patients over 70 years has not been determined. Clinical correlation is essential. Serum or plasma urea nitroge n measurement (mass/volume)Ordered By: John Anders on 04-26-2023 Urea nitrogen [Mass/Vol] 58 mg/dL 7-18 [facility] Thin prep Papanicolaou smear with manual screeningOrdered By: John Anders on 04-26-2023 Thin prep Papanicolaou smear with manual screening 209 mg/dL 74-106 [facility] Comment on above: MANAGEMENT OF PATIEN T CARE PER NURSING PROTOCOL Thin prep Papanicolaou smear with manual screening 10 -15 [facility] Basophil percentageOrdered B y: Michelle Washburn on 04-25-2023 Basophil percentage 2.4 mg/dL 2.5-4.9 [facility] Bilirubin [Mass/Vol] 0.90 mg/dL 0.20-1.00 [facility] Comment on above: For patients on eltr ombopag therapy, use of Dimension Burt TBIL is not recommended. Cholesterol [Mass/Vol] 170 mg/dL <200 [facility] Comment on above: <200 mg/dL Desirable 200-240 mg/dL Borderline >240 mg/dL High Risk Protein [Mass/Vol] 7.0 g/dL 6.4-8.2 [facility] Triglyceride [Mass/Vol] 216 mg/dL <199 [facility] Comment on above: The drugs N-Acetylcy steine and Metamizole may falsely depress this assay.Serum Triglycerides Reference Interval Normal <150 mg/dL Borderline high 150 - 199 mg/dL High 200 - 499 mg/dL Very High > or = 500 mg/dL Laboratory - Chemistry and C hemistry - challengeOrdered By: Michelle Washburn on 04-25-2023 Albumin/Globulin [Mass ratio] 0.9 {ratio} 0.9-2.4 [facility] ALP [Catalytic activity/Vol] 80 U/L 45-117 [facility] ALT [Catalytic activity/Vol] 13 U/L 16-61 [facility] Cholesterol in HDL [Mass/Vol] 33 mg/dL >40 [facility] Comment on above: The drugs N-Acetylcy steine and Metamizole may falsely depress this assay. Reference Range HDL <40 mg/dL Low HDL Cholesterol HDL >or= 60 mg/dL High HDL Cholesterol Cholesterol in LDL [Mass/Vol] 94 mg/dL 0-130 [facility] Globulin (S) [Mass/Vol] 3.7 g/dL 2.2-4.2 [facility] Magnesium [Mass/Vol] 1.6 mg/dL 1.6-2.6 [facility] No Panel InformationOrdered By: Michelle Washburn on 04-25-2023 VLDL Cholesterol 43 mg/dL 5-40 [facility] Troponin I High Sensitivity 334 pg/mL 3.0-78.0 [facility] Comment on above: CRITICAL VALUE BAILEY Cole LOPEZ RN ([facility])04/25/23 0320 [address] JEAN-BAPTISTE.RESULTS READ BACK BY SAME . Please Note: New Test Units and Gender Specific Reference Ranges. For more information see Policy Stat Procedure Burt High Sensitivity Troponin (TNIH) and attachments. Serum or plasma thyroid stim ulating hormone (TSH) measurement (units/volume)Ordered By: Michelle Washburn on 04-25-2023 TSH Qn 3.43 uIU/mL 0.358-3.74 [facility] Thin prep Papanicolaou smear with manual screeningOrdered By: Michelle Washburn on 04-25-2023 Thin prep Papanicolaou smear with manual screening 3.3 g/dL 3.2-5.0 [facility] Thin prep Papanicolaou smear with manual screening 17 U/L 15-37 [facility] Absolute lymphocyte countOrd ered By: Jr Thomas on 04-24-2023 Lymphocytes Auto (Unsp spec) [#/Vol] 0.67 10*3/uL 0.83-4.51 [facility] Automated lymphocyte count a s percentage of total leukocytesOrdered By: Jr Thomas on 04-24-2023 Lymphocytes/100 WBC Auto (Unsp spec) 12.0 % 19-41 [facility] Basophil percentageOrdered B y: Jr Thomas on 04-24-2023 Basophils/100 WBC (Bld) 0.5 % 0-1 [facility] Chloride [Moles/Vol] 108 mmol/L 98-107 [facility] Eosinophils/100 WBC (Bld) 4.5 % 0-5 [facility] Glucose [Mass/Vol] 200 mg/dL 74-106 [facility] Comment on above: Glucose result great er than or equal to 200 mg/dLsuggests DIABETES MELLITUS per A.D.A. criteria. Hemoglobin (Bld) [Mass/Vol] 9.3 g/dL 13.0-16.5 [facility] Monocytes/100 WBC (Bld) 6.1 % 0-10 [facility] Neutrophils (Bld) [#/Vol] 4.3 10*3/uL 2.0-7.7 [facility] Neutrophils/100 WBC (Bld) 76.7 % 47-70 [facility] Potassium [Moles/Vol] 4.1 mmol/L 3.5-5.1 [facility] Sodium [Moles/Vol] 145 mmol/L 136-145 [facility] WBC (Bld) [#/Vol] 5.6 10*3/uL 4.4-11.0 [facility] Determination of erythrocyte mean corpuscular volume (MCV)Ordered By: Jr Thomas on 04-24-2023 MCV (RBC) [Entitic vol] 89.6 fL 80-94 [facility] Erythrocyte distribution wid th ratioOrdered By: Jr Thomas on 04-24-2023 Erythrocyte distribution width (RBC) [Ratio] 14.7 % 11.6-14.6 [facility] Erythrocyte distribution wid th standard deviationOrdered By: Jr Thomas on 04-24-2023 Erythrocyte distribution width (RBC) [Entitic vol] 48.0 fL 35.1-43.9 [facility] Hematocrit Auto (Bld) [Volum e fraction]Ordered By: Jr Thomas on 04-24-2023 Hematocrit (Bld) [Volume fraction] 30.1 % 40-54 [facility] Immature granulocytes/100 WB C Auto (Bld)Ordered By: Jr Thomas on 04-24-2023 Immature granulocytes/100 WBC (Bld) 0.200 % 0.0-0.9 [facility] Comment on above: IG% - Immature Granu locytes (promyelocytes, myelocytes and metamyelocytes) > 1% indicates that a LEFT SHIFT is Present. Laboratory - Chemistry and C hemistry - challengeOrdered By: Jr Thomas on 04-24-2023 CO2 [Moles/Vol] 33.0 mmol/L 21.0-32.0 [facility] Natriuretic peptide B (Bld) [Mass/Vol] 143.1 pg/mL 0-100 [facility] Urea nitrogen/Creatinine [Mass ratio] 21.5 mg/mg 10-20 [facility] - Hematology and Cell countsOrdered By: Jr Thomas on 04-24-2023 MCH (RBC) [Entitic mass] 27.7 pg 27.0-32.0 [facility] MCHC (RBC) [Mass/Vol] 30.9 g/dL 32-36 [facility] Nucleated RBC/100 WBC (Bld) [Ratio] 0 % 0-5 [facility] Platelet mean volume (Bld) [Entitic vol] 11.9 fL 6.2-12.0 [facility] Platelets (Bld) [#/Vol] 103 10*3/uL 150-450 [facility] - Microbiology an d Antimicrobial susceptibilityOrdered By: Jr Thomas on 04-24-2023 SARS-CoV-2 (COVID-19) RNA JOSH+probe Ql (Unsp spec) [facility] SARS-CoV-2 (COVID-19) RNA JOSH+probe Ql (Unsp spec) [facility] No Panel InformationOrdered By: Jr Thomas on 04-24-2023 Estimated Creatinine Clearance Calc 29.00 ml/min [facility] Estimated GFR (MDRD) Amer 41 mL/min >60 [facility] Comment on above: GFR Calc Estimated GFR (MDRD) Non-Af Amer 34 mL/min >60 [facility] Comment on above: Non- GFR Calc Troponin I High Sensitivity 47 pg/mL 3.0-78.0 [facility] Comment on above: Please Note: New Arti t Units and Gender Specific Reference Ranges. For more information see Policy Stat Procedure Burt High Sensitivity Troponin (TNIH) and attachments. RBC Auto (Bld) [#/Vol]Ordere d By: Jr Thomas on 04-24-2023 RBC (Bld) [#/Vol] 3.36 10*6/uL 4.6-6.2 [facility] Serum or plasma calcium elmira urement (mass/volume)Ordered By: Jr Thomas on 04-24-2023 Calcium [Mass/Vol] 9.3 mg/dL 8.5-10.1 [facility] Serum or plasma creatinine m easurement (mass/volume)Ordered By: Jr Thomas on 04-24-2023 Creatinine [Mass/Vol] 2.00 mg/dL 0.70-1.30 [facility] Comment on above: The validity of the calculated GFR & GFRAA in patients over 70 years has not been determined. Clinical correlation is essential. Serum or plasma urea nitroge n measurement (mass/volume)Ordered By: Jr Thomas on 04-24-2023 Urea nitrogen [Mass/Vol] 43 mg/dL 7-18 [facility] Thin prep Papanicolaou smear with manual screeningOrdered By: Jr Thomas on 04-24-2023 Thin prep Papanicolaou smear with manual screening 4 5-15 [facility] .Auto Diffon 04-13-2023 Basophil, Absolute 0.1 10 3/mcL Normal 0.0-0.2 [facility] ([place]) Comment on above: Performed By: #### D SUMAN, PBNP, CBC, ADIFF, ANEU, TSH, CMP, GFR ####[address] [place], [place] [address] Basophils/100 WBC (Bld) 1.0 % Normal 0.0-2.5 A [facility] ([place]) Comment on above: Performed By: #### D SUMAN, PBNP, CBC, ADIFF, ANEU, TSH, CMP, GFR ####[address] [place], [place] [address] Eosinophil, Absolute 0.4 10 3/mcL Normal 0.0-0.4 [facility] ([place]) Comment on above: Performed By: #### D SUMAN, PBNP, CBC, ADIFF, ANEU, TSH, CMP, GFR ####[address] [place], [place] [address] Eosinophils/100 WBC (Bld) 5.5 % Normal 0.0-7.0 [facility] ([place]) Comment on above: Performed By: #### D SUMAN, PBNP, CBC, ADIFF, ANEU, TSH, CMP, GFR ####[address] [place], [place] [address] Lymphocyte, Absolute 1.2 10 3/mcL Normal 0.8-3.9 [facility] ([place]) Comment on above: Performed By: #### D SUMAN, PBNP, CBC, ADIFF, ANEU, TSH, CMP, GFR ####[address] [place], [place] [address] Lymphocytes/100 WBC (Bld) 19.1 % Normal 10.0-50.0 [facility] ([place]) Comment on above: Performed By: #### D SUMAN, PBNP, CBC, ADIFF, ANEU, TSH, CMP, GFR ####[address] [place], [place] [address] Monocyte, Absolute 0.5 10 3/mcL Normal 0.2-1.0 [facility] ([place]) Comment on above: Performed By: #### D SUMAN, PBNP, CBC, ADIFF, ANEU, TSH, CMP, GFR ####[address] [place], [place] [address] Monocytes/100 WBC (Bld) 7.4 % Normal 1.7-13.0 [facility] ([place]) Comment on above: Performed By: #### D SUMAN, PBNP, CBC, ADIFF, ANEU, TSH, CMP, GFR ####[address] [place], [place] [address] Neutrophils/100 WBC (Bld) 67.0 % Normal 37.0-80.0 [facility] ([place]) Comment on above: Performed By: #### D SUMAN, PBNP, CBC, ADIFF, ANEU, TSH, CMP, GFR ####[address] [place], [place] [address] .GFRon 04-13-2023 GFR 38 ml/min/1.73sqm Normal [facility] ([place]) Comment on above: Result Comment: GFR Population [...] CBC, ADIFF, ANEU, TSH, CMP, GFR ####[address] [place], [place] [address] GFR Non- 32 ml/min/1.73sqm Normal [facility] ([place]) Comment on above: Result Comment: GFR Population [...] ADIFF, ANEU, TSH, CMP, GFR ####[address] [place], [place] [address] .NEUABSon 04-13-2023 Neutrophil, Absolute 4.3 10 3/mcL Normal 2.9-6.2 [facility] ([place]) Comment on above: Performed By: #### Cole SUMAN, PBNP, CBC, ADIFF, ANEU, TSH, CMP, GFR ####[address] [place], [place] [address] CBCon 04-13-2023 Erythrocyte distribution width (RBC) [Ratio] 16.3 % High 11.5-14.5 [facility] ([place]) Comment on above: Order Comment: STAT Performed By: #### Cole SUMAN, PBNP, CBC, ADIFF, ANEU, TSH, CMP, GFR ####[address] [place], [place] [address] Hematocrit (Bld) [Volume fraction] 28.8 % Low 42.0-52.0 [facility] ([place]) Comment on above: Order Comment: STAT Performed By: #### Cole SUMAN, PBNP, CBC, ADIFF, ANEU, TSH, CMP, GFR ####[address] [place], [place] [address] Hgb 9.6 G/dL Low 14.0-18.0 [facility] ([place]) Comment on above: Order Comment: STAT Performed By: ###Ramesh Galvan SUMAN, PBNP, CBC, ADIFF, ANEU, TSH, CMP, GFR ####[address] [place], [place] [address] MCH (RBC) [Entitic mass] 28.1 pg Normal 27.0-31.2 [facility] ([place]) Comment on above: Order Comment: STAT Performed By: #### D SUMAN, PBNP, CBC, ADIFF, ANEU, TSH, CMP, GFR ####[address] [place], [place] [address] MCHC 33.4 G/dL Normal 31.8-35.4 [facility] ([place]) Comment on above: Order Comment: STAT Performed By: #### D SUMAN, PBNP, CBC, ADIFF, ANEU, TSH, CMP, GFR ####[address] [place], [place] [address] MCV (RBC) [Entitic vol] 84.1 fL Normal 80.0-94.0 A [facility] ([place]) Comment on above: Order Comment: STAT Performed By: #### Cole SUMAN, PBNP, CBC, ADIFF, ANEU, TSH, CMP, GFR ####[address] [place], [place] [address] Platelet 119 10 3/mcL Low 130-400 [facility] ([place]) Comment on above: Order Comment: STAT Performed By: #### Cole SUMAN, PBNP, CBC, ADIFF, ANEU, TSH, CMP, GFR ####[address] [place], [place] [address] Platelet mean volume (Bld) [Entitic vol] 8.3 fL Normal 7.4-10.4 [facility] ([place]) Comment on above: Order Comment: STAT Performed By: #### Cole SUMAN, PBNP, CBC, ADIFF, ANEU, TSH, CMP, GFR ####[address] [place], [place] [address] RBC 3.42 10 6/mcL Low 4.04-6.13 [facility] ([place]) Comment on above: Order Comment: STAT Performed By: #### Cole SUMAN, PBNP, CBC, ADIFF, ANEU, TSH, CMP, GFR ####[address] [place], [place] [address] WBC 6.4 10 3/mcL Normal 4.6-10.8 [facility] ([place]) Comment on above: Order Comment: STAT Performed By: #### D SUMAN, PBNP, CBC, ADIFF, ANEU, TSH, CMP, GFR ####[address] [place], [place] [address] CMPon 04-13-2023 Albumin Level 3.5 G/dL Normal 3.4-4.8 [facility] ([place]) Comment on above: Order Comment: STAT Performed By: #### D SUMAN, PBNP, CBC, ADIFF, ANEU, TSH, CMP, GFR ####[address] [place], [place] [address] Albumin/Globulin [Mass ratio] 1.0 {ratio} Low 1.1-2.5 [facility] ([place]) Comment on above: Order Comment: STAT Performed By: #### D SUMAN, PBNP, CBC, ADIFF, ANEU, TSH, CMP, GFR ####[address] [place], [place] [address] ALP [Catalytic activity/Vol] 93 U/L Normal 40-135 [facility] ([place]) Comment on above: Order Comment: STAT Performed By: #### D SUMAN, PBNP, CBC, ADIFF, ANEU, TSH, CMP, GFR ####[address] [place], [place] [address] ALT [Catalytic activity/Vol] 20 U/L Normal 16-63 [facility] ([place]) Comment on above: Order Comment: STAT Performed By: #### D SUMAN, PBNP, CBC, ADIFF, ANEU, TSH, CMP, GFR ####[address] [place], [place] [address] AST [Catalytic activity/Vol] 20 U/L Normal 10-40 [facility] ([place] Comment on above: Order Comment: STAT Performed By: #### D SUMAN, PBNP, CBC, ADIFF, ANEU, TSH, CMP, GFR ####[address] [place], [place] [address] Bili Total 0.7 mg/dL Normal 0.2-1.0 [facility] ([place]) Comment on above: Order Comment: STAT Result Comment: Use of this assay is not recommended for patients undergoing treatment with eltrombopag due to the potential for falsely elevated results. Performed By: #### D SUMAN, PBNP, CBC, ADIFF, ANEU, TSH, CMP, GFR ####[address] [place], [place] [address] BUN/Creatinine Ratio 30 ratio High 7-27 [facility] ([place]) Comment on above: Order Comment: STAT Performed By: #### D SUMAN, PBNP, CBC, ADIFF, ANEU, TSH, CMP, GFR ####[address] [place], [place] [address] Calcium [Mass/Vol] 9.5 mg/dL Normal 8.4-10.2 [facility] ([place]) Comment on above: Order Comment: STAT Performed By: #### D SUMAN, PBNP, CBC, ADIFF, ANEU, TSH, CMP, GFR ####[address] [place], [place] [address] Chloride [Moles/Vol] 100 mmol/L Normal 98-107 [facility] ([place]) Comment on above: Order Comment: STAT Performed By: #### D SUMAN, PBNP, CBC, ADIFF, ANEU, TSH, CMP, GFR ####[address] [place], [place] [address] CO2 [Moles/Vol] 36 mmol/L High 23-31 [facility] ([place]) Comment on above: Order Comment: STAT Performed By: #### D SUMAN, PBNP, CBC, ADIFF, ANEU, TSH, CMP, GFR ####[address] [place], [place] [address] Creatinine [Mass/Vol] 2.03 mg/dL High 0.70-1.30 [facility] ([place]) Comment on above: Order Comment: STAT Performed By: #### D SUMAN, PBNP, CBC, ADIFF, ANEU, TSH, CMP, GFR ####[address] [place], [place] [address] Electrolyte Balance 7.0 mEq/L Normal 4.0-15.0 [facility] ([place]) Comment on above: Order Comment: STAT Performed By: #### D SUMAN, PBNP, CBC, ADIFF, ANEU, TSH, CMP, GFR ####[address] [place], [place] [address] Globulin 3.6 G/dL Normal [facility] ([place]) Comment on above: Order Comment: STAT Performed By: #### D SUMAN, PBNP, CBC, ADIFF, ANEU, TSH, CMP, GFR ####[address] [place], [place] [address] Glucose [Mass/Vol] 151 mg/dL High 83-110 [facility] ([place]) Comment on above: Order Comment: STAT Performed By: #### D SUMAN, PBNP, CBC, ADIFF, ANEU, TSH, CMP, GFR ####[address] [place], [place] [address] Potassium [Moles/Vol] 3.9 mmol/L Normal 3.5-5.1 [facility] ([place]) Comment on above: Order Comment: STAT Performed By: #### Cole SUMAN, PBNP, CBC, ADIFF, ANEU, TSH, CMP, GFR ####[address] [place], [place] [address] Sodium [Moles/Vol] 143 mmol/L Normal 136-145 [facility] ([place]) Comment on above: Order Comment: STAT Performed By: #### Cole SUMAN, PBNP, CBC, ADIFF, ANEU, TSH, CMP, GFR ####[address] [place], [place] [address] Total Protein 7.1 G/dL Normal 6.4-8.2 [facility] ([place]) Comment on above: Order Comment: STAT Performed By: #### D SUMAN, PBNP, CBC, ADIFF, ANEU, TSH, CMP, GFR ####[address] [place], [place] [address] Urea nitrogen [Mass/Vol] 60 mg/dL High 7-18 [facility] ([place]) Comment on above: Order Comment: STAT Performed By: #### D SUMAN, PBNP, CBC, ADIFF, ANEU, TSH, CMP, GFR ####[address] [place], [place] [address] DIMERon 04-13-2023 D-Dimer 290 ng/mL D-DU High 0-230 [facility] ([place]) Comment on above: Order Comment: STAT Result [...] CBC, ADIFF, ANEU, TSH, CMP, GFR ####[address]atie [address] [place], [place] [address] LABORATORYOrdered By: SYSTEM SYSTEM on 04-13-2023 Albumin [...] B (Bld) [Mass/Vol] 1696 pg/mL High 0-450 [facility] ([place]) Comment on above: Order Comment: STAT Result Comment: NT-p roBNP results of less than 300 pg/mL effectivelyrules out acute congestive heart failure with 99% negative predictive value. Performed By: #### D SUMAN, PBNP, CBC, ADIFF, ANEU, TSH, CMP, GFR ####Katie [address] [place], [place] [address] TSHon 04-13-2023 TSH Qn 2.44 m[IU]/L Normal 0.36-3.74 [facility] ([place]) Comment on above: Order Comment: STAT Performed By: #### D SUMAN, PBNP, CBC, ADIFF, ANEU, TSH, CMP, GFR ####[address] [place], [place] [address] Absolute lymphocyte countOrd ered By: Dimitry Lott on 04-07-2023 Lymphocytes Auto (Unsp spec) [#/Vol] 1.29 10*3/uL 0.83-4.51 [facility] Automated lymphocyte count a s percentage of total leukocytesOrdered By: Dimitry Lott on 04-07-2023 Lymphocytes/100 WBC Auto (Unsp spec) 22.1 % 19-41 [facility] Basophil percentageOrdered B y: Dimitry Lott on 04-07-2023 Basophils/100 WBC (Bld) 0.5 % 0-1 [facility] Chloride [Moles/Vol] 103 mmol/L 98-107 [facility] Eosinophils/100 WBC (Bld) 5.8 % 0-5 [facility] Glucose [Mass/Vol] 195 mg/dL 74-106 [facility] Comment on above: Fasting Glucose resu lt greater than or equal to 126 mg/dL suggests DIABETES MELLITUS per A.D.A. criteria. Hemoglobin (Bld) [Mass/Vol] 10.0 g/dL 13.0-16.5 [facility] Monocytes/100 WBC (Bld) 7.4 % 0-10 [facility] Neutrophils (Bld) [#/Vol] 3.7 10*3/uL 2.0-7.7 [facility] Neutrophils/100 WBC (Bld) 63.9 % 47-70 [facility] Potassium [Moles/Vol] 4.3 mmol/L 3.5-5.1 [facility] Sodium [Moles/Vol] 140 mmol/L 136-145 [facility] WBC (Bld) [#/Vol] 5.8 10*3/uL 4.4-11.0 [facility] Determination of erythrocyte mean corpuscular volume (MCV)Ordered By: Dimitry Lott on 04-07-2023 MCV (RBC) [Entitic vol] 89.3 fL 80-94 [facility] Erythrocyte distribution wid th ratioOrdered By: Dimitry Lott on 04-07-2023 Erythrocyte distribution width (RBC) [Ratio] 15.7 % 11.6-14.6 [facility] Erythrocyte distribution wid th standard deviationOrdered By: Dimitry Lott on 04-07-2023 Erythrocyte distribution width (RBC) [Entitic vol] 50.7 fL 35.1-43.9 [facility] Hematocrit Auto (Bld) [Volum e fraction]Ordered By: Dimitry Lott on 04-07-2023 Hematocrit (Bld) [Volume fraction] 32.4 % 40-54 [facility] Immature granulocytes/100 WB C Auto (Bld)Ordered By: Dimitry Lott on 04-07-2023 Immature granulocytes/100 WBC (Bld) 0.300 % 0.0-0.9 [facility] Comment on above: IG% - Immature Granu locytes (promyelocytes, myelocytes and metamyelocytes) > 1% indicates that a LEFT SHIFT is Present. Laboratory - Chemistry and C hemistry - challengeOrdered By: Dimitry Lott on 04-07-2023 CO2 [Moles/Vol] 32.0 mmol/L 21.0-32.0 [facility] Urea nitrogen/Creatinine [Mass ratio] 21.7 mg/mg 10-20 [facility] Laboratory - Hematology and Cell countsOrdered By: Dimitry Lott on 04-07-2023 MCH (RBC) [Entitic mass] 27.5 pg 27.0-32.0 [facility] MCHC (RBC) [Mass/Vol] 30.9 g/dL 32-36 [facility] Nucleated RBC/100 WBC (Bld) [Ratio] 0 % 0-5 [facility] Platelets (Bld) [#/Vol] 110 10*3/uL 150-450 [facility] No Panel InformationOrdered By: Dimitry Lott on 04-07-2023 Estimated Creatinine Clearance Calc 26.68 ml/min [facility] Estimated GFR (MDRD) Amer 38 mL/min >60 [facility] Comment on above: GFR Calc Estimated GFR (MDRD) Non-Af Amer 31 mL/min >60 [facility] Comment on above: Non- GFR Calc Troponin I High Sensitivity 36 pg/mL 3.0-78.0 [facility] Comment on above: Please Note: New Arti t Units and Gender Specific Reference Ranges. For more information see Policy Stat Procedure Burt High Sensitivity Troponin (TNIH) and attachments. Platelet mean volume Pee-Ec ker (Bld) [Entitic vol]Ordered By: Dimitry Lott on 04-07-2023 Platelet mean volume (Bld) [Entitic vol] 11.0 fL 6.2-12.0 [facility] RBC Auto (Bld) [#/Vol]Ordere d By: Dimitry Lott on 04-07-2023 RBC (Bld) [#/Vol] 3.63 10*6/uL 4.6-6.2 [facility] Serum or plasma calcium elmira urement (mass/volume)Ordered By: Dimitry Lott on 04-07-2023 Calcium [Mass/Vol] 9.2 mg/dL 8.5-10.1 [facility] Serum or plasma creatinine m easurement (mass/volume)Ordered By: Dimitry Lott on 04-07-2023 Creatinine [Mass/Vol] 2.17 mg/dL 0.70-1.30 [facility] Comment on above: The validity of the calculated GFR & GFRAA in patients over 70 years has not been determined. Clinical correlation is essential. Serum or plasma urea nitroge n measurement (mass/volume)Ordered By: Dimitry Lott on 04-07-2023 Urea nitrogen [Mass/Vol] 47 mg/dL 7-18 [facility] Thin prep Papanicolaou smear with manual screeningOrdered By: Dimitry Lott on 04-07-2023 Thin prep Papanicolaou smear with manual screening 5 5-15 [facility] Thin prep Papanicolaou smear with manual screeningOrdered By: Fredy Joy on 04-02-2023 Thin prep Papanicolaou smear with manual screening 170 mg/dL 74-106 [facility] Comment on above: MANAGEMENT OF PATIEN T CARE PER NURSING PROTOCOL US RENALon 03-22-2023 US RENAL Normal [facility] ([place]) .Auto Diffon 03-21-2023 Basophil, Absolute 0.0 10 3/mcL Normal 0.0-0.2 [facility] ([place]) Comment on above: Performed By: #### G FR, CMP, ADIFF, CBC, ANEU ####Katie [address] [place], [place] [address] Basophils/100 WBC (Bld) 0.8 % Normal 0.0-2.5 [facility] ([place]) Comment on above: Performed By: #### G FR, CMP, ADIFF, CBC, ANEU ####[address] [place], [place] [address] Eosinophil, Absolute 0.1 10 3/mcL Normal 0.0-0.4 [facility] ([place]) Comment on above: Performed By: #### G FR, CMP, ADIFF, CBC, ANEU ####[address] [place], [place] [address] Eosinophils/100 WBC (Bld) 1.4 % Normal 0.0-7.0 [facility] ([place] Comment on above: Performed By: #### G FR, CMP, ADIFF, CBC, ANEU ####[address] [place], [place] [address] Lymphocyte, Absolute 1.3 10 3/mcL Normal 0.8-3.9 [facility] ([place] Comment on above: Performed By: #### G FR, CMP, ADIFF, CBC, ANEU ####Katie [address] [place], [place] [address] Lymphocytes/100 WBC (Bld) 25.8 % Normal 10.0-50.0 [facility] ([place]) Comment on above: Performed By: #### G FR, CMP, ADIFF, CBC, ANEU ####[address] [place], [place] [address] Monocyte, Absolute 0.4 10 3/mcL Normal 0.2-1.0 [facility] ([place]) Comment on above: Performed By: #### G FR, CMP, ADIFF, CBC, ANEU ####[address] [place], [place] [address] Monocytes/100 WBC (Bld) 8.6 % Normal 1.7-13.0 [facility] ([place]) Comment on above: Performed By: #### G FR, CMP, ADIFF, CBC, ANEU ####[address] [place], [place] [address] Neutrophils/100 WBC (Bld) 63.4 % Normal 37.0-80.0 [facility] ([place]) Comment on above: Performed By: #### G FR, CMP, ADIFF, CBC, ANEU ####[address] [place], [place] [address] .GFRon 03-21-2023 GFR Non- 29 ml/min/1.73sqm Normal [facility] ([place]) Comment on above: Result Comment: GFR Population [...] FR, CMP, ADIFF, CBC, ANEU ####[address] [place], [place] [address] GFR 35 ml/min/1.73sqm Normal [facility] ([place] Comment on above: Result Comment: GFR Population [...] FR, CMP, ADIFF, CBC, ANEU ####[address] [place], [place] [address] .NEUABSon 03-21-2023 Neutrophil, Absolute 3.3 10 3/mcL Normal 2.9-6.2 [facility] ([place]) Comment on above: Performed By: #### G FR, CMP, ADIFF, CBC, ANEU ####[address] [place], [place] [address] CBCon 03-21-2023 Erythrocyte distribution width (RBC) [Ratio] 17.4 % High 11.5-14.5 [facility] ([place] Comment on above: Performed By: #### G FR, CMP, ADIFF, CBC, ANEU ####[address] [place], [place] [address] Hematocrit (Bld) [Volume fraction] 31.1 % Low 42.0-52.0 [facility] ([place] Comment on above: Performed By: #### G FR, CMP, ADIFF, CBC, ANEU ####[address] [place], [place] [address] Hgb 10.3 G/dL Low 14.0-18.0 [facility] ([place] Comment on above: Performed By: #### G FR, CMP, ADIFF, CBC, ANEU ####[address] [place], [place] [address] MCH (RBC) [Entitic mass] 27.8 pg Normal 27.0-31.2 [facility] ([place] Comment on above: Performed By: #### G FR, CMP, ADIFF, CBC, ANEU ####[address] [place], [place] [address] MCHC 33.0 G/dL Normal 31.8-35.4 [facility] ([place] Comment on above: Performed By: #### G FR, CMP, ADIFF, CBC, ANEU ####Katie [address] [place], [place] [address] MCV (RBC) [Entitic vol] 84.1 fL Normal 80.0-94.0 [facility] ([place] Comment on above: Performed By: #### G FR, CMP, ADIFF, CBC, ANEU ####K[address] [place], [place] [address] Platelet 136 10 3/mcL Normal 130-400 [facility] ([place] Comment on above: Performed By: #### G FR, CMP, ADIFF, CBC, ANEU ####K[address] [place], [place] [address] Platelet mean volume (Bld) [Entitic vol] 8.4 fL Normal 7.4-10.4 [facility] ([place] Comment on above: Performed By: #### G FR, CMP, ADIFF, CBC, ANEU ####[address] [place], [place] [address] RBC 3.70 10 6/mcL Low 4.04-6.13 [facility] ([place] Comment on above: Performed By: #### G FR, CMP, ADIFF, CBC, ANEU ####[address] [place], [place] [address] WBC 5.2 10 3/mcL Normal 4.6-10.8 [facility] ([place] Comment on above: Performed By: #### G FR, CMP, ADIFF, CBC, ANEU ####Katie [address] [place], [place] [address] CMPon 03-21-2023 Albumin Level 3.4 G/dL Normal 3.4-4.8 [facility] ([place] Comment on above: Performed By: #### G FR, CMP, ADIFF, CBC, ANEU ####[address] [place], [place] [address] Albumin/Globulin [Mass ratio] 1.0 {ratio} Low 1.1-2.5 [facility] ([place] Comment on above: Performed By: #### G FR, CMP, ADIFF, CBC, ANEU ####Katie [address] [place], [place] [address] ALP [Catalytic activity/Vol] 85 U/L Normal 40-135 [facility] ([place] Comment on above: Performed By: #### G FR, CMP, ADIFF, CBC, ANEU ####Katie [address] [place], [place] [address] ALT [Catalytic activity/Vol] 37 U/L Normal 16-63 [facility] ([place] Comment on above: Performed By: #### G FR, CMP, ADIFF, CBC, ANEU ####Katie [address] [place], [place] [address] AST [Catalytic activity/Vol] 28 U/L Normal 10-40 [facility] ([place] Comment on above: Performed By: #### G FR, CMP, ADIFF, CBC, ANEU ####Katie [address] [place], [place] [address] Bili Total 0.7 mg/dL Normal 0.2-1.0 [facility] ([place] Comment on above: Result Comment: Use of this assay is not recommended for patients undergoing treatment with eltrombopag due to the potential for falsely elevated results. Performed By: #### G FR, CMP, ADIFF, CBC, ANEU ####[address] [place], [place] [address] BUN/Creatinine Ratio 21 ratio Normal 7-27 [facility] ([place] Comment on above: Performed By: #### G FR, CMP, ADIFF, CBC, ANEU ####[address] [place], [place] [address] Calcium [Mass/Vol] 9.2 mg/dL Normal 8.4-10.2 [facility] ([place] Comment on above: Performed By: #### G FR, CMP, ADIFF, CBC, ANEU ####[address] [place], [place] [address] Chloride [Moles/Vol] 101 mmol/L Normal 98-107 [facility] ([place] Comment on above: Performed By: #### G FR, CMP, ADIFF, CBC, ANEU ####[address] [place], [place] [address] CO2 [Moles/Vol] 31 mmol/L Normal 23-31 [facility] ([place] Comment on above: Performed By: #### G FR, CMP, ADIFF, CBC, ANEU ####[address] [place], [place] [address] Creatinine [Mass/Vol] 2.20 mg/dL High 0.70-1.30 [facility] ([place]) Comment on above: Performed By: #### G FR, CMP, ADIFF, CBC, ANEU ####[address] [place], [place] [address] Electrolyte Balance 10.0 mEq/L Normal 4.0-15.0 [facility] ([place]) Comment on above: Performed By: #### G FR, CMP, ADIFF, CBC, ANEU ####[address] [place], [place] [address] Globulin 3.5 G/dL Normal [facility] ([place] Comment on above: Performed By: #### G FR, CMP, ADIFF, CBC, ANEU ####[address] [place], [place] [address] Glucose [Mass/Vol] 150 mg/dL High 83-110 [facility] ([place] Comment on above: Performed By: #### G FR, CMP, ADIFF, CBC, ANEU ####[address] [place], [place] [address] Potassium [Moles/Vol] 4.4 mmol/L Normal 3.5-5.1 [facility] ([place] Comment on above: Performed By: #### G FR, CMP, ADIFF, CBC, ANEU ####[address] [place], [place] [address] Sodium [Moles/Vol] 142 mmol/L Normal 136-145 [facility] ([place] Comment on above: Performed By: #### G FR, CMP, ADIFF, CBC, ANEU ####Katie [address] [place], [place] [address] Total Protein 6.9 G/dL Normal 6.4-8.2 [facility] ([place] Comment on above: Performed By: #### G FR, CMP, ADIFF, CBC, ANEU ####[address] [place], [place] [address] Urea nitrogen [Mass/Vol] 47 mg/dL High 7-18 [facility] ([place] Comment on above: Performed By: #### G FR, CMP, ADIFF, CBC, ANEU ####Katie [address] [place], [place] [address] Absolute lymphocyte countOrd ered By: Fred Ramos on 03-09-2023 Lymphocytes Auto (Unsp spec) [#/Vol] 1.07 10*3/uL 0.83-4.51 [facility] Basophil percentageOrdered B y: Fred Ramos on 03-09-2023 Basophils/100 WBC (Bld) 0.5 % 0-1 [facility] Chloride [Moles/Vol] 110 mmol/L 98-107 [facility] Eosinophils/100 WBC (Bld) 5.8 % 0-5 [facility] Glucose [Mass/Vol] 123 mg/dL 74-106 [facility] Comment on above: Fasting Glucose resu lt from 100 to 125 mg/dL suggests IMPAIRED HOMEOSTASIS per A.D.A. criteria. Neutrophils (Bld) [#/Vol] 2.4 10*3/uL 2.0-7.7 [facility] Neutrophils/100 WBC (Bld) 57.7 % 47-70 [facility] Potassium [Moles/Vol] 4.3 mmol/L 3.5-5.1 [facility] Sodium [Moles/Vol] 143 mmol/L 136-145 [facility] WBC (Bld) [#/Vol] 4.2 10*3/uL 4.4-11.0 [facility] Blood erythrocytes count (nu mber/volume)Ordered By: Fred Ramos on 03-09-2023 RBC (Bld) [#/Vol] 3.44 10*6/uL 4.6-6.2 [facility] Blood hemoglobin measurement (mass/volume)Ordered By: Fred Ramos on 03-09-2023 Hemoglobin (Bld) [Mass/Vol] 9.3 g/dL 13.0-16.5 [facility] Blood lymphocytes/100 leukoc ytesOrdered By: Fred Ramos on 03-09-2023 Lymphocytes/100 WBC (Bld) 25.7 % 19-41 [facility] Blood monocytes/100 leukocyt esOrdered By: Fred Ramos on 03-09-2023 Monocytes/100 WBC (Bld) 9.8 % 0-10 [facility] Blood platelet mean volumeOr dered By: Fred Ramos on 03-09-2023 Platelet mean volume (Bld) [Entitic vol] 11.1 fL 6.2-12.0 [facility] Clostridioides difficile nuc leic acid assay by PCROrdered By: Fred Ramos on 03-09-2023 C. difficile DNA JOSH+probe Ql (Unsp spec) [facility] Clostridium difficile detect ion by polymerase chain reactionOrdered By: Fred Ramos on 03-09-2023 C. difficile DNA JOSH+probe Ql (Unsp spec) [facility] Determination of erythrocyte mean corpuscular volume (MCV)Ordered By: Fred Ramos on 03-09-2023 MCV (RBC) [Entitic vol] 87.8 fL 80-94 [facility] Glucose Glucometer (dC) [M ass/Vol]Ordered By: Fred Ramos on 03-09-2023 Glucose [Mass/Vol] 167 mg/dL 74-106 [facility] Comment on above: MANAGEMENT OF PATIEN T CARE PER NURSING PROTOCOL Hematocrit Auto (Bld) [Volum e fraction]Ordered By: Fred Ramos on 12-29-2023 Hematocrit (Bld) [Volume fraction] 30.2 % 40-54 [facility] - Chemistry and C hemistry - challengeOrdered By: Fred Ramos on 03-09-2023 CO2 [Moles/Vol] 28.0 mmol/L 21.0-32.0 [facility] Urea nitrogen/Creatinine [Mass ratio] 26.2 mg/mg 10-20 [facility] - Hematology and Cell countsOrdered By: Fred Ramos on 03-09-2023 Erythrocyte distribution width (RBC) [Entitic vol] 55.2 fL 35.1-43.9 [facility] Erythrocyte distribution width (RBC) [Ratio] 17.4 % 11.6-14.6 [facility] Immature granulocytes/100 WBC (Bld) 0.500 % 0.0-0.9 [facility] Comment on above: IG% - Immature Granu locytes (promyelocytes, myelocytes and metamyelocytes) > 1% indicates that a LEFT SHIFT is Present. MCH (RBC) [Entitic mass] 27.0 pg 27.0-32.0 [facility] Nucleated RBC/100 WBC (Bld) [Ratio] 0 % 0-5 [facility] MCHC Auto (RBC) [Mass/Vol]Or dered By: Fred Ramos on 03-09-2023 MCHC (RBC) [Mass/Vol] 30.8 g/dL 32-36 [facility] No Panel InformationOrdered By: Fred Ramos on 03-09-2023 Estimated Creatinine Clearance Calc 25.49 ml/min [facility] Estimated GFR (MDRD) Amer 43 mL/min >60 [facility] Comment on above: GFR Calc Estimated GFR (MDRD) Non-Af Amer 36 mL/min >60 [facility] Comment on above: Non- GFR Calc Platelets bldOrdered By: Alana Ramos on 03-09-2023 Platelets (Bld) [#/Vol] 108 10*3/uL 150-450 [facility] Serum or plasma calcium elmira urement (mass/volume)Ordered By: Fred Ramos on 03-09-2023 Calcium [Mass/Vol] 9.5 mg/dL 8.5-10.1 [facility] Serum or plasma creatinine m easurement (mass/volume)Ordered By: Fred Ramos on 03-09-2023 Creatinine [Mass/Vol] 1.91 mg/dL 0.70-1.30 [facility] Comment on above: The validity of the calculated GFR & GFRAA in patients over 70 years has not been determined. Clinical correlation is essential. Serum or plasma urea nitroge n measurement (mass/volume)Ordered By: Fred Ramos on 03-09-2023 Urea nitrogen [Mass/Vol] 50 mg/dL 7-18 [facility] Stool enteric pathogen panel by probe and target amplification methodOrdered By: Fred Ramos on 03-09-2023 Gastrointestinal pathogens panel JOSH+probe (Stl) [facility] Gastrointestinal pathogens panel JOSH+probe (Stl) [facility] Thin prep Papanicolaou smear with manual screeningOrdered By: Fred Ramos on 03-09-2023 Thin prep Papanicolaou smear with manual screening 5 5-15 [facility] Blood manual differential co mment interpretation (narrative result)Ordered By: Romario Blancas on 03-08-2023 Manual differential comment Ric (Bld) [Interp] SCANNED [facility] Comment on above: MODERATE DECREASED T HROMBOCYTOPENIA Giardia lamblia ag stool EIA Ordered By: Fred Ramos on 03-08-2023 G. lamblia Ag IA Ql (Stl) Negative Negative [facility] Comment on above: Performed at: [address] [id number] Director: Tanmay Damon PhD, Phone: [phone] Absolute lymphocyte countOrd ered By: Eric Lester on 03-07-2023 Lymphocytes Auto (Unsp spec) [#/Vol] 1.02 10*3/uL 0.83-4.51 [facility] Basophil percentageOrdered B y: Eric Lester on 03-07-2023 Basophils/100 WBC (Bld) 0.2 % 0-1 [facility] Chloride [Moles/Vol] 107 mmol/L 98-107 [facility] Eosinophils/100 WBC (Bld) 2.5 % 0-5 [facility] Glucose [Mass/Vol] 223 mg/dL 74-106 [facility] Comment on above: Glucose result great er than or equal to 200 mg/dLsuggests DIABETES MELLITUS per A.D.A. criteria. Neutrophils (Bld) [#/Vol] 2.6 10*3/uL 2.0-7.7 [facility] Neutrophils/100 WBC (Bld) 63.7 % 47-70 [facility] Potassium [Moles/Vol] 4.2 mmol/L 3.5-5.1 [facility] Sodium [Moles/Vol] 143 mmol/L 136-145 [facility] WBC (Bld) [#/Vol] 4.0 10*3/uL 4.4-11.0 [facility] Blood erythrocytes count (nu mber/volume)Ordered By: Eric Lester on 03-07-2023 RBC (Bld) [#/Vol] 2.70 10*6/uL 4.6-6.2 [facility] Blood hemoglobin measurement (mass/volume)Ordered By: Eric Lester on 03-07-2023 Hemoglobin (Bld) [Mass/Vol] 7.5 g/dL 13.0-16.5 [facility] Blood lymphocytes/100 leukoc ytesOrdered By: Eric Lester on 03-07-2023 Lymphocytes/100 WBC (Bld) 25.2 % 19-41 [facility] Blood monocytes/100 leukocyt esOrdered By: Eric Lester on 03-07-2023 Monocytes/100 WBC (Bld) 8.2 % 0-10 [facility] Blood platelet mean volumeOr dered By: Eric Lester on 03-07-2023 Platelet mean volume (Bld) [Entitic vol] 11.9 fL 6.2-12.0 [facility] Determination of erythrocyte mean corpuscular volume (MCV)Ordered By: Eric Lester on 03-07-2023 MCV (RBC) [Entitic vol] 90.7 fL 80-94 [facility] Hematocrit Auto (Bld) [Volum e fraction]Ordered By: Eric Lester on 03-07-2023 Hematocrit (Bld) [Volume fraction] 24.5 % 40-54 [facility] Influenza virus A and B and SARS-CoV-2 (COVID-19) Ag panel - Upper respiratory specimOrdered By: Eric Lester on 03-07-2023 SARS-CoV-2 (COVID-19) RNA JOSH+probe Ql (Resp) [facility] - Chemistry and C hemistry - challengeOrdered By: Eric Lester on 03-07-2023 CO2 [Moles/Vol] 29.0 mmol/L 21.0-32.0 [facility] Natriuretic peptide B (Bld) [Mass/Vol] 78.3 pg/mL 0-100 [facility] Urea nitrogen/Creatinine [Mass ratio] 28.8 mg/mg 10-20 [facility] - Hematology and Cell countsOrdered By: Eric Lester on 03-07-2023 Erythrocyte distribution width (RBC) [Entitic vol] 55.5 fL 35.1-43.9 [facility] Erythrocyte distribution width (RBC) [Ratio] 17.1 % 11.6-14.6 [facility] Immature granulocytes/100 WBC (Bld) 0.200 % 0.0-0.9 [facility] Comment on above: IG% - Immature Granu locytes (promyelocytes, myelocytes and metamyelocytes) > 1% indicates that a LEFT SHIFT is Present. MCH (RBC) [Entitic mass] 27.8 pg 27.0-32.0 [facility] Nucleated RBC/100 WBC (Bld) [Ratio] 0 % 0-5 [facility] Lower GI hemoglobin IA Ql (S tl)Ordered By: Eric Lester on 03-07-2023 Stool Occult Blood (CLARY) Positive [facility] MCHC Auto (RBC) [Mass/Vol]Or dered By: Eric Lester on 03-07-2023 MCHC (RBC) [Mass/Vol] 30.6 g/dL 32-36 [facility] No Panel InformationOrdered By: Eric Lester on 03-07-2023 Estimated Creatinine Clearance Calc 18.24 ml/min [facility] Estimated GFR (MDRD) Amer 30 mL/min >60 [facility] Comment on above: GFR Calc Estimated GFR (MDRD) Non-Af Amer 24 mL/min >60 [facility] Comment on above: Non- GFR Calc Troponin I High Sensitivity 34 pg/mL 3.0-78.0 [facility] Comment on above: Please Note: New Arti t Units and Gender Specific Reference Ranges. For more information see Policy Stat Procedure Burt High Sensitivity Troponin (TNIH) and attachments. Platelets bldOrdered By: Sky Lester on 03-07-2023 Platelets (Bld) [#/Vol] 107 10*3/uL 150-450 [facility] Serum or plasma calcium elmira urement (mass/volume)Ordered By: Eric Lester on 03-07-2023 Calcium [Mass/Vol] 9.1 mg/dL 8.5-10.1 [facility] Serum or plasma creatinine m easurement (mass/volume)Ordered By: Eric Lester on 03-07-2023 Creatinine [Mass/Vol] 2.67 mg/dL 0.70-1.30 [facility] Comment on above: The validity of the calculated GFR & GFRAA in patients over 70 years has not been determined. Clinical correlation is essential. Serum or plasma urea nitroge n measurement (mass/volume)Ordered By: Eric Lester on 03-07-2023 Urea nitrogen [Mass/Vol] 77 mg/dL 7-18 [facility] Thin prep Papanicolaou smear with manual screeningOrdered By: Eric Lester on 03-07-2023 Thin prep Papanicolaou smear with manual screening 7 5-15 [facility] Upper respiratory specimen i nfluenza A virus, influenza B virus, and severe acute resOrdered By: Eric Lester on 03-07-2023 Upper respiratory specimen influenza A virus, influenza B virus, and severe acute res [facility] Upper respiratory specimen i nfluenza A virus, influenza B virus, and severe acute respiratory syndromOrdered By: Eric Lester on 03-07-2023 Upper respiratory specimen influenza A virus, influenza B virus, and severe acute respiratory syndrom [facility] .Auto Diffon 02-28-2023 Basophil, Absolute 0.0 10 3/mcL Normal 0.0-0.2 [facility] ([place] Comment on above: Performed By: #### G FR, CMP, ANEU, URIC, ADIFF, CBC ####Katie [address] [place], [place] [address] Basophils/100 WBC (Bld) 0.4 % Normal 0.0-2.5 A [facility] ([place] Comment on above: Performed By: #### G FR, CMP, ANEU, URIC, ADIFF, CBC ####Katie [address] [place], [place] [address] Eosinophil, Absolute 0.2 10 3/mcL Normal 0.0-0.4 [facility] ([place]) Comment on above: Performed By: #### G FR, CMP, ANEU, URIC, ADIFF, CBC ####Katie [address] [place], [place] [address] Eosinophils/100 WBC (Bld) 2.4 % Normal 0.0-7.0 [facility] ([place]) Comment on above: Performed By: #### G FR, CMP, ANEU, URIC, ADIFF, CBC ####Katie Chfbcgij[address] [place], [place] [address] Lymphocyte, Absolute 1.1 10 3/mcL Normal 0.8-3.9 [facility] ([place]) Comment on above: Performed By: #### G FR, CMP, ANEU, URIC, ADIFF, CBC ####Katie Ubqnyirh[address] [place], [place] [address] Lymphocytes/100 WBC (Bld) 16.1 % Normal 10.0-50.0 [facility] ([place] Comment on above: Performed By: #### G FR, CMP, ANEU, URIC, ADIFF, CBC ####Katie Hhnqlmus[address] [place], [place] [address] Monocyte, Absolute 0.4 10 3/mcL Normal 0.2-1.0 [facility] ([place]) Comment on above: Performed By: #### G FR, CMP, ANEU, URIC, ADIFF, CBC ####Katie Wjmszfdf851 [place], [place] [address] Monocytes/100 WBC (Bld) 5.1 % Normal 1.7-13.0 A [facility] ([place] Comment on above: Performed By: #### G FR, CMP, ANEU, URIC, ADIFF, CBC ####Katie Rkurbupl[address] [place], [place] [address] Neutrophils/100 WBC (Bld) 76.0 % Normal 37.0-80.0 [facility] ([place] Comment on above: Performed By: #### G FR, CMP, ANEU, URIC, ADIFF, CBC ####K[address] [place], [place] [address] .GFRon 02-28-2023 GFR 31 ml/min/1.73sqm Normal [facility] ([place] Comment on above: Result Comment: GFR Population [...] CMP, ANEU, URIC, ADIFF, CBC ####Katie [address] [place], [place] [address] GFR Non- 26 ml/min/1.73sqm Normal [facility] ([place] Comment on above: Result Comment: GFR Population [...] CMP, ANEU, URIC, ADIFF, CBC ####[address] [place], [place] [address] .NEUABSon 02-28-2023 Neutrophil, Absolute 5.3 10 3/mcL Normal 2.9-6.2 [facility] ([place] Comment on above: Performed By: #### G FR, CMP, ANEU, URIC, ADIFF, CBC ####Katie Nzi[address] [place], [place] [address] CBCon 02-28-2023 Erythrocyte distribution width (RBC) [Ratio] 17.6 % High 11.5-14.5 [facility] ([place] Comment on above: Performed By: #### G FR, CMP, ANEU, URIC, ADIFF, CBC ####Katie Yzpg[address] [place] [address] Hematocrit (Bld) [Volume fraction] 28.8 % Low 42.0-52.0 [facility] ([place] Comment on above: Performed By: #### G FR, CMP, ANEU, URIC, ADIFF, CBC ####Katie [address] [place] [address] Hgb 9.2 G/dL Low 14.0-18.0 [facility] ([place] Comment on above: Performed By: #### G FR, CMP, ANEU, URIC, ADIFF, CBC ####Katie Kwwy[address]dq[address] [place] [address] MCH (RBC) [Entitic mass] 26.7 pg Low 27.0-31.2 [facility] ([place] Comment on above: Performed By: #### G FR, CMP, ANEU, URIC, ADIFF, CBC ####Katie Txwfiqnp[address] [place] [address] MCHC 32.0 G/dL Normal 31.8-35.4 [facility] ([place] Comment on above: Performed By: #### G FR, CMP, ANEU, URIC, ADIFF, CBC ####Katie Rhhvkhle[address] [place] [id number] MCV (RBC) [Entitic vol] 83.5 fL Normal 80.0-94.0 A [facility] ([place] Comment on above: Performed By: #### G FR, CMP, ANEU, URIC, ADIFF, CBC ####Katie Kqhdlski[address] [place], [place] [address] Platelet 91 10 3/mcL Low 130-400 [facility] ([place] Comment on above: Performed By: #### G FR, CMP, ANEU, URIC, ADIFF, CBC ####Katie Btzrrycw[address] [place], [place] [address] Platelet mean volume (Bld) [Entitic vol] 9.9 fL Normal 7.4-10.4 [facility] ([place] Comment on above: Performed By: #### G FR, CMP, ANEU, URIC, ADIFF, CBC ####Katie Opag[address]wz[address] [place], [place] [address] RBC 3.45 10 6/mcL Low 4.04-6.13 [facility] ([place] Comment on above: Performed By: #### G FR, CMP, ANEU, URIC, ADIFF, CBC ####Katie Xzxvclvi[address] [place], [place] [address] WBC 7.0 10 3/mcL Normal 4.6-10.8 [facility] ([place] Comment on above: Performed By: #### G FR, CMP, ANEU, URIC, ADIFF, CBC ####Katie Zbbws[address]oc7[address] [place], [place] [address] CMPon 02-28-2023 Albumin Level 3.2 G/dL Low 3.4-4.8 [facility] ([place] Comment on above: Performed By: #### G FR, CMP, ANEU, URIC, ADIFF, CBC ####Katie Jvmhxzui[address] [place], [place] [address] Albumin/Globulin [Mass ratio] 1.0 {ratio} Low 1.1-2.5 [facility] ([place] Comment on above: Performed By: #### G FR, CMP, ANEU, URIC, ADIFF, CBC ####Katie [address] [place], [place] [address] ALP [Catalytic activity/Vol] 72 U/L Normal 40-135 [facility] ([place] Comment on above: Performed By: #### G FR, CMP, ANEU, URIC, ADIFF, CBC ####Katie Qbhnjlrd640 [place], [place] [address] ALT [Catalytic activity/Vol] 50 U/L Normal 16-63 [facility] ([place] Comment on above: Performed By: #### G FR, CMP, ANEU, URIC, ADIFF, CBC ####[address] [place], [place] [address] AST [Catalytic activity/Vol] 18 U/L Normal 10-40 [facility] ([place] Comment on above: Performed By: #### G FR, CMP, ANEU, URIC, ADIFF, CBC ####Katie Rqtyhkln[address] [place], [place] [address] Bili Total 1.0 mg/dL Normal 0.2-1.0 [facility] ([place] Comment on above: Result Comment: Use of this assay is not recommended for patients undergoing treatment with eltrombopag due to the potential for falsely elevated results. Performed By: #### G FR, CMP, ANEU, URIC, ADIFF, CBC ####Katie Zwmxvuri[address] [place], [place] [address] BUN/Creatinine Ratio 30 ratio High 7-27 [facility] ([place] Comment on above: Performed By: #### G FR, CMP, ANEU, URIC, ADIFF, CBC ####Katie Lpbrlycq[address] [place], [place] [address] Calcium [Mass/Vol] 9.4 mg/dL Normal 8.4-10.2 [facility] ([place] Comment on above: Performed By: #### G FR, CMP, ANEU, URIC, ADIFF, CBC ####Katie Shallqoi[address] [place], [place] [address] Chloride [Moles/Vol] 103 mmol/L Normal 98-107 [facility] ([place] Comment on above: Performed By: #### G FR, CMP, ANEU, URIC, ADIFF, CBC ####Katie Cilmmhaf[address] [place], [place] [address] CO2 [Moles/Vol] 30 mmol/L Normal 23-31 [facility] ([place] Comment on above: Performed By: #### G FR, CMP, ANEU, URIC, ADIFF, CBC ####Katie [address] [place], [place] [address] Creatinine [Mass/Vol] 2.42 mg/dL High 0.70-1.30 [facility] ([place]) Comment on above: Performed By: #### G FR, CMP, ANEU, URIC, ADIFF, CBC ####Katie [address] [place], [place] [address] Electrolyte Balance 9.0 mEq/L Normal 4.0-15.0 [facility] ([place]) Comment on above: Performed By: #### G FR, CMP, ANEU, URIC, ADIFF, CBC ####K[address] [place], [place] [address] Globulin 3.2 G/dL Normal [facility] ([place] Comment on above: Performed By: #### G FR, CMP, ANEU, URIC, ADIFF, CBC ####K[address] [place], [place] [address] Glucose [Mass/Vol] 173 mg/dL High 83-110 [facility] ([place] Comment on above: Performed By: #### G FR, CMP, ANEU, URIC, ADIFF, CBC ####Katie [address] [place], [place] [address] Potassium [Moles/Vol] 4.8 mmol/L Normal 3.5-5.1 [facility] ([place] Comment on above: Performed By: #### G FR, CMP, ANEU, URIC, ADIFF, CBC ####[address] [place], [place] [address] Sodium [Moles/Vol] 142 mmol/L Normal 136-145 [facility] ([place] Comment on above: Performed By: #### G FR, CMP, ANEU, URIC, ADIFF, CBC ####Katie [address] [place], [place] [address] Total Protein 6.4 G/dL Normal 6.4-8.2 [facility] ([place] Comment on above: Performed By: #### G FR, CMP, ANEU, URIC, ADIFF, CBC ####Katie Torres[address] [place], [place] [address] Urea nitrogen [Mass/Vol] 73 mg/dL High 7-18 [facility] ([place] Comment on above: Performed By: #### G FR, CMP, ANEU, URIC, ADIFF, CBC ####Katie Open[address] [place], [place] [address] LABORATORYOrdered By: SYSTEM SYSTEM on 02-28-2023 Albumin [...] Uric Acid Lvl 9.8 mg/dL High 3.5-7.2 [facility] ([place] Comment on above: Performed By: #### G FR, CMP, ANEU, URIC, ADIFF, CBC ####[place] [address] [place] [address] SPEon 02-22-2023 SPE Interpretation Normal serum protein electrophoresis pattern. No abnormality detected. Normal [facility] ([place] Comment on above: Result Comment: Elec tronically Signed by: MELONIE CERDA MD02/22/2023 12:24 EST Performed By: #### U JENNIFER, FERR, CBC, FES, ANEU, RFP, ADIFF, GFR, VIDH ####[place] [address]#### PTH, SPE ####[place] [address] Albumin 3.7 G/dL Normal 3.3-5.0 [facility] ([place] Comment on above: Performed By: #### U JENNIFER, FERR, CBC, FES, ANEU, RFP, ADIFF, GFR, VIDH ####[place] [address]#### PTH, SPE ####[place] [address] Alpha 1 0.2 G/dL Normal 0.1-0.4 [facility] ([place] Comment on above: Performed By: #### U JENNIFER, FERR, CBC, FES, ANEU, RFP, ADIFF, GFR, VIDH ####[place] [address]#### PTH, SPE ####[place] [address] Alpha 2 1.1 G/dL Normal 0.6-1.2 [facility] ([place] Comment on above: Performed By: #### U JENNIFER, FERR, CBC, FES, ANEU, RFP, ADIFF, GFR, VIDH ####[place] [address]#### PTH, SPE ####[place] [address] Beta 1.1 G/dL Normal 0.6-1.3 [facility] ([place] Comment on above: Performed By: #### U JENNIFER, FERR, CBC, FES, ANEU, RFP, ADIFF, GFR, VIDH ####[facility] [place], [place] [address]#### PTH, SPE ####[place] [address] Gamma 0.9 G/dL Normal 0.7-1.6 [facility] ([place] Comment on above: Performed By: #### U JENNIFER, FERR, CBC, FES, ANEU, RFP, ADIFF, GFR, VIDH ####[facility] [place] [address]#### PTH, SPE ####[place] [address] .Urinalysis Microscopic (AO) on 02-21-2023 UA RBC 0-5 Abnormal None Seen [facility] ([place] Comment on above: Performed By: #### U AMICAO, CRUR, UA, PRUR ####[place] [address] [place], [place] [address] UA Squam Epithelial 0-5 Abnormal None Seen [facility] ([place] Comment on above: Performed By: #### U AMICAO, CRUR, UA, PRUR ####[place] [address]sw[address] [place], [place] [address] UA WBC 0-5 Abnormal None Seen [facility] ([place] Comment on above: Performed By: #### U AMICAO, CRUR, UA, PRUR ####Katie Scvtuzhj[address] [place], [place] [address] CRURon 02-21-2023 U Creatinine 71.9 mg/dL Normal 39.0-259.0 [facility] ([place] Comment on above: Performed By: #### U AMICAO, CRUR, UA, PRUR ####[place] [address] [place], [place] [address] PRURon 02-21-2023 U Protein 19 mg/dL High 0-11 [facility] ([place] Comment on above: Performed By: #### U AMICAO, CRUR, UA, PRUR ####Katie Vimovv[address] [place], [place] [address] UAon 02-21-2023 Color (U) Yellow Normal [facility] ([place] Comment on above: Performed By: #### U AMICAO, CRUR, UA, PRUR ####Katie Lvnth[address] [place] [address] Glucose (U) [Mass/Vol] 500 mg/dL Abnormal Negative [facility] ([place] Comment on above: Performed By: #### U AMICAO, CRUR, UA, PRUR ####Katie Tvrirwdw[address] [place] [address] Ketones Ql (U) Negative Normal Negative [facility] ([place] Comment on above: Performed By: #### U AMICAO, CRUR, UA, PRUR ####[address] [place] [address] UA Appear Clear Normal Clear [facility] ([place] Comment on above: Performed By: #### U AMICAO, CRUR, UA, PRUR ####[place] [address] [place], [place] [address] UA Blood Negative Normal Negative [facility] ([place] Comment on above: Performed By: #### U AMICAO, CRUR, UA, PRUR ####Katie Hskyfgfm[address] [place], [place] [address] UA Leuk Est Negative Normal Negative [facility] ([place] Comment on above: Performed By: #### U AMICAO, CRUR, UA, PRUR ####Katie Nfs[address] [place], [place] [address] UA Nitrite Negative Normal Negative [facility] ([place] Comment on above: Performed By: #### U AMICAO, CRUR, UA, PRUR ####Katie [address] [place] [address] UA pH 5.5 Normal 5.0 - 8.0 [facility] ([place] Comment on above: Performed By: #### U AMICAO, CRUR, UA, PRUR ####[address] [place], [place] [address] UA Protein 30 mg/dL Normal Negative [facility] ([place] Comment on above: Performed By: #### U AMICAO, CRUR, UA, PRUR ####Katie Im[address] [place], [place] [address] UA Spec Grav 1.015 Normal 1.015-1.025 [facility] ([place] Comment on above: Performed By: #### U AMICAO, CRUR, UA, PRUR ####Katie [address] [place], [place] [address] UA Specimen Type Not Given Normal [facility] ([place] Comment on above: Performed By: #### U AMICAO, CRUR, UA, PRUR ####Katie [address] [place], [place] [address] UA Urobilinogen 0.2 E.U./dL Normal 0.2-1.0 [facility] ([place] Comment on above: Performed By: #### U AMICAO, CRUR, UA, PRUR ####Katie [address] [place], [place] [address] Urobilinogen (U) [Mass/Vol] Negative Normal Negative [facility] ([place] Comment on above: Performed By: #### U AMICAO, CRUR, UA, PRUR ####Katie Fwend[address] [place], [place] [address] .Auto Diffon 02-20-2023 Basophil, Absolute 0.0 10 3/mcL Normal 0.0-0.2 [facility] ([place] Comment on above: Performed By: #### U JENNIFER, FERR, CBC, FES, ANEU, RFP, ADIFF, GFR, VIDH ####[place] [address]#### PTH, SPE ####[address] [address] Basophils/100 WBC (Bld) 0.3 % Normal 0.0-2.5 A [facility] ([place] Comment on above: Performed By: #### U JENNIFER, FERR, CBC, FES, ANEU, RFP, ADIFF, GFR, VIDH ####[place] [address]#### PTH, SPE ####[address] [address] Eosinophil, Absolute 0.2 10 3/mcL Normal 0.0-0.4 [facility] ([place] Comment on above: Performed By: #### U JENNIFER, FERR, CBC, FES, ANEU, RFP, ADIFF, GFR, VIDH ####[place] [address]#### PTH, SPE ####[address] [address] Eosinophils/100 WBC (Bld) 1.7 % Normal 0.0-7.0 [facility] ([place]) Comment on above: Performed By: #### U JENNIFER, FERR, CBC, FES, ANEU, RFP, ADIFF, GFR, VIDH ####[place] [address]#### PTH, SPE ####[address] [address] Lymphocyte, Absolute 2.6 10 3/mcL Normal 0.8-3.9 [facility] ([place] Comment on above: Performed By: #### U JENNIFER, FERR, CBC, FES, ANEU, RFP, ADIFF, GFR, VIDH ####[place] [address]#### PTH, SPE ####[address] [address] Lymphocytes/100 WBC (Bld) 17.8 % Normal 10.0-50.0 [facility] ([place] Comment on above: Performed By: #### U JENNIFER, FERR, CBC, FES, ANEU, RFP, ADIFF, GFR, VIDH ####[place] [address]#### PTH, SPE ####[place] [address] Monocyte, Absolute 0.9 10 3/mcL Normal 0.2-1.0 [facility] ([place] Comment on above: Performed By: #### U JENNIFER, FERR, CBC, FES, ANEU, RFP, ADIFF, GFR, VIDH ####[address] [address]#### PTH, SPE ####[address] [address] Monocytes/100 WBC (Bld) 6.0 % Normal 1.7-13.0 A [facility] ([place] Comment on above: Performed By: #### U JENNIFER, FERR, CBC, FES, ANEU, RFP, ADIFF, GFR, VIDH ####[address] [address]#### PTH, SPE ####[address] [address] Neutrophils/100 WBC (Bld) 74.2 % Normal 37.0-80.0 [facility] ([place] Comment on above: Performed By: #### U JENNIFER, FERR, CBC, FES, ANEU, RFP, ADIFF, GFR, VIDH ####[address] [address]#### PTH, SPE ####[address] [address] .GFRon 02-20-2023 GFR Non- 23 ml/min/1.73sqm Normal [facility] ([place] Comment on above: Result Comment: GFR Population [...] CBC, FES, ANEU, RFP, ADIFF, GFR, VIDH ####[facility] [place] [id number]#### PTH, SPE ####[place] [address] GFR 27 ml/min/1.73sqm Normal [facility] ([place] Comment on above: Result Comment: GFR Population [...] CBC, FES, ANEU, RFP, ADIFF, GFR, VIDH ####[facility] [place] [address]#### PTH, SPE ####[place] [address] .NEUABSon 02-20-2023 Neutrophil, Absolute 10.8 10 3/mcL High 2.9-6.2 A [facility] ([place] Comment on above: Performed By: #### U JENNIFER, FERR, CBC, FES, ANEU, RFP, ADIFF, GFR, VIDH ####[facility] [place] [id number]#### PTH, SPE ####[place] [address] CBCon 02-20-2023 Erythrocyte distribution width (RBC) [Ratio] 17.0 % High 11.5-14.5 [facility] ([place] Comment on above: Performed By: #### U JENNIFER, FERR, CBC, FES, ANEU, RFP, ADIFF, GFR, VIDH ####[place] [address]#### PTH, SPE ####[place] [address] Hematocrit (Bld) [Volume fraction] 31.5 % Low 42.0-52.0 [facility] ([place] Comment on above: Performed By: #### U JENNIFER, FERR, CBC, FES, ANEU, RFP, ADIFF, GFR, VIDH ####[place] [address]#### PTH, SPE ####[place] [address] Hgb 10.2 G/dL Low 14.0-18.0 [facility] ([place] Comment on above: Performed By: #### U JENNIFER, FERR, CBC, FES, ANEU, RFP, ADIFF, GFR, VIDH ####[place] [address]#### PTH, SPE ####[place] [address] MCH (RBC) [Entitic mass] 26.5 pg Low 27.0-31.2 [facility] ([place] Comment on above: Performed By: #### U JENNIFER, FERR, CBC, FES, ANEU, RFP, ADIFF, GFR, VIDH ####[place] [address]#### PTH, SPE ####[place] [address] MCHC 32.4 G/dL Normal 31.8-35.4 [facility] ([place] Comment on above: Performed By: #### U JENNIFER, FERR, CBC, FES, ANEU, RFP, ADIFF, GFR, VIDH ####[place] [address]#### PTH, SPE ####[place] [address] MCV (RBC) [Entitic vol] 81.9 fL Normal 80.0-94.0 A [facility] ([place] Comment on above: Performed By: #### U JENNIFER, FERR, CBC, FES, ANEU, RFP, ADIFF, GFR, VIDH ####[place] [address]#### PTH, SPE ####[place] [address] Platelet 165 10 3/mcL Normal 130-400 [facility] ([place] Comment on above: Performed By: #### U JENNIFER, FERR, CBC, FES, ANEU, RFP, ADIFF, GFR, VIDH ####[place] [address]#### PTH, SPE ####[place] [address] Platelet mean volume (Bld) [Entitic vol] 9.0 fL Normal 7.4-10.4 [facility] ([place] Comment on above: Performed By: #### U JENNIFER, FERR, CBC, FES, ANEU, RFP, ADIFF, GFR, VIDH ####[place] [address]#### PTH, SPE ####[place] [address] RBC 3.85 10 6/mcL Low 4.04-6.13 [facility] ([place] Comment on above: Performed By: #### U JENNIFER, FERR, CBC, FES, ANEU, RFP, ADIFF, GFR, VIDH ####[place] [address]#### PTH, SPE ####[place] [address] WBC 14.5 10 3/mcL High 4.6-10.8 [facility] ([place] Comment on above: Performed By: #### U JENNIFER, FERR, CBC, FES, ANEU, RFP, ADIFF, GFR, VIDH ####[place] [address]#### PTH, SPE ####[place] [address] Jerica 02-20-2023 Ferritin [Mass/Vol] 27.0 ng/mL Normal 26.0-388.0 [facility] ([place]) Comment on above: Performed By: #### U JENNIFER, FERR, CBC, FES, ANEU, RFP, ADIFF, GFR, VIDH ####[place] [address]#### PTH, SPE ####[place] [address] FESon 02-20-2023 Iron [Mass/Vol] 60 ug/dL Low 65-175 [facility] ([place] Comment on above: Performed By: #### U JENNIFER, FERR, CBC, FES, ANEU, RFP, ADIFF, GFR, VIDH ####[place] [address]#### PTH, SPE ####[place] [address] Iron Sat 17 % Normal [facility] ([place] Comment on above: Performed By: #### U JENNIFER, FERR, CBC, FES, ANEU, RFP, ADIFF, GFR, VIDH ####[place] [address]#### PTH, SPE ####[place] [address] TIBC 349 mcg/dL Normal 250-450 [facility] ([place] Comment on above: Performed By: #### U JENNIFER, FERR, CBC, FES, ANEU, RFP, ADIFF, GFR, VIDH ####[place] [address]#### PTH, SPE ####[place] [address] LABORATORYOrdered By: SYSTEM SYSTEM on 02-20-2023 25-hydroxyvitamin [...] 02-20-2023 PTH, Intact 55.0 pg/mL Normal 18.5-88.0 [facility] ([place] Comment on above: Performed By: #### U JENNIFER, FERR, CBC, FES, ANEU, RFP, ADIFF, GFR, VIDH ####Katie [address] [place], [place] [address]#### PTH, SPE ####[address] [address] RFPon 02-20-2023 Albumin Level 3.6 G/dL Normal 3.4-4.8 [facility] ([place] Comment on above: Performed By: #### U JENNIFER, FERR, CBC, FES, ANEU, RFP, ADIFF, GFR, VIDH ####[place] [address]#### PTH, SPE ####[address] [address] BUN/Creatinine Ratio 39 ratio High 7-27 [facility] ([place] Comment on above: Performed By: #### U JENNIFER, FERR, CBC, FES, ANEU, RFP, ADIFF, GFR, VIDH ####[place] [address]#### PTH, SPE ####[address] [address] Calcium [Mass/Vol] 10.5 mg/dL High 8.4-10.2 [facility] ([place] Comment on above: Performed By: #### U JENNIFER, FERR, CBC, FES, ANEU, RFP, ADIFF, GFR, VIDH ####[place] [address]#### PTH, SPE ####[address] [address] Chloride [Moles/Vol] 103 mmol/L Normal 98-107 [facility] ([place] Comment on above: Performed By: #### U JENNIFER, FERR, CBC, FES, ANEU, RFP, ADIFF, GFR, VIDH ####[place] [address]#### PTH, SPE ####[place] [address] CO2 [Moles/Vol] 27 mmol/L Normal 23-31 [facility] ([place] Comment on above: Performed By: #### U JENNIFER, FERR, CBC, FES, ANEU, RFP, ADIFF, GFR, VIDH ####[place] [address]#### PTH, SPE ####[address] [address] Creatinine [Mass/Vol] 2.70 mg/dL High 0.70-1.30 [facility] ([place]) Comment on above: Performed By: #### U JENNIFER, FERR, CBC, FES, ANEU, RFP, ADIFF, GFR, VIDH ####[address] [address]#### PTH, SPE ####[address] [address] Electrolyte Balance 6.0 mEq/L Normal 4.0-15.0 [facility] ([place]) Comment on above: Performed By: #### U JENNIFER, FERR, CBC, FES, ANEU, RFP, ADIFF, GFR, VIDH ####[place] [address]#### PTH, SPE ####[address] [address] Glucose [Mass/Vol] 187 mg/dL High 83-110 [facility] ([place] Comment on above: Performed By: #### U JENNIFER, FERR, CBC, FES, ANEU, RFP, ADIFF, GFR, VIDH ####[place] [address]#### PTH, SPE ####[address] [address] Phosphate [Mass/Vol] 4.3 mg/dL High 2.3-4.1 [facility] ([place]) Comment on above: Performed By: #### U JENNIFER, FERR, CBC, FES, ANEU, RFP, ADIFF, GFR, VIDH ####[place] [address]#### PTH, SPE ####[address] [address] Potassium [Moles/Vol] 3.9 mmol/L Normal 3.5-5.1 [facility] ([place]) Comment on above: Performed By: #### U JENNIFER, FERR, CBC, FES, ANEU, RFP, ADIFF, GFR, VIDH ####[place] [address]#### PTH, SPE ####[place] [address] Sodium [Moles/Vol] 136 mmol/L Normal 136-145 [facility] ([place] Comment on above: Performed By: #### U JENNIFER, FERR, CBC, FES, ANEU, RFP, ADIFF, GFR, VIDH ####[place] [address]#### PTH, SPE ####[place] [address] Urea nitrogen [Mass/Vol] 105 mg/dL High 7-18 [facility] ([place] Comment on above: Performed By: #### U JENNIFER, FERR, CBC, FES, ANEU, RFP, ADIFF, GFR, VIDH ####[place] [address]#### PTH, SPE ####[place] [address] SPEon 02-20-2023 Total Protein 7.0 G/dL Normal 5.7-8.2 [facility] ([place]) Comment on above: Result Comment: No te - New Reference Range in effect 19 Performed By: #### U JENNIFER, FERR, CBC, FES, ANEU, RFP, ADIFF, GFR, VIDH ####[place] [address]#### PTH, SPE ####[place] [address] URICon 02-20-2023 Uric Acid Lvl 10.9 mg/dL High 3.5-7.2 [facility] ([place]) Comment on above: Performed By: #### U JENNIFER, FERR, CBC, FES, ANEU, RFP, ADIFF, GFR, VIDH ####[place] [address]#### PTH, SPE ####[place] [address] VIDHon 02-20-2023 Vit. D 25-Hydroxy 47.5 ng/mL Normal [facility] ([place]) Comment on above: Result Comment: Inte rpretive Values Based on Total 25(OH) Vitamin D:Deficient <20 ng/mLInsufficient 20 - <30 ng/mLSufficient 30-100 ng/mL Performed By: #### U JENNIFER, FERR, CBC, FES, ANEU, RFP, ADIFF, GFR, VIDH ####[address] [place], [place] [address]#### PTH, SPE ####[place] [id number] Absolute lymphocyte countOrd ered By: Anthony Sosa on 02-15-2023 Lymphocytes Auto (Unsp spec) [#/Vol] 0.88 10*3/uL 0.83-4.51 [facility] Basophil percentageOrdered B y: Anthony Sosa on 02-15-2023 Basophils/100 WBC (Bld) 0.1 % 0-1 [facility] Eosinophils/100 WBC (Bld) 0.2 % 0-5 [facility] Neutrophils (Bld) [#/Vol] 7.7 10*3/uL 2.0-7.7 [facility] Neutrophils/100 WBC (Bld) 83.7 % 47-70 [facility] WBC (Bld) [#/Vol] 9.2 10*3/uL 4.4-11.0 [facility] Blood erythrocytes count (nu mber/volume)Ordered By: Anthony Sosa on 02-15-2023 RBC (Bld) [#/Vol] 2.97 10*6/uL 4.6-6.2 [facility] [facility] Blood hemoglobin measurement (mass/volume)Ordered By: Anthony Sosa on 02-15-2023 Hemoglobin (Bld) [Mass/Vol] 7.9 g/dL 13.0-16.5 [facility] Blood lymphocytes/100 leukoc ytesOrdered By: Anthony Sosa on 02-15-2023 Lymphocytes/100 WBC (Bld) 9.6 % 19-41 [facility] Blood monocytes/100 leukocyt esOrdered By: Anthony Sosa on 02-15-2023 Monocytes/100 WBC (Bld) 6.2 % 0-10 [facility] Blood platelet mean volumeOr dered By: Anthony Sosa on 02-15-2023 Platelet mean volume (Bld) [Entitic vol] 11.6 fL 6.2-12.0 [facility] Determination of erythrocyte mean corpuscular volume (MCV)Ordered By: Anthony Sosa on 02-15-2023 MCV (RBC) [Entitic vol] 87.2 fL 80-94 [facility] Glucose Glucometer (BldC) [M ass/Vol]Ordered By: Anthony Sosa on 02-15-2023 Glucose [Mass/Vol] 151 mg/dL 74-106 [facility] Comment on above: MANAGEMENT OF PATIEN T CARE PER NURSING PROTOCOL Hematocrit Auto (Bld) [Volum e fraction]Ordered By: Anthony Sosa on 02-15-2023 Hematocrit (Bld) [Volume fraction] 25.9 % 40-54 [facility] Iron measurement (mass/mass) Ordered By: Anthony Sosa on 02-15-2023 Iron (Unsp spec) [Mass/Mass] 105 ug/dL 65-175 [facility] - Hematology and Cell countsOrdered By: Anthony Sosa on 02-15-2023 Erythrocyte distribution width (RBC) [Entitic vol] 46.3 fL 35.1-43.9 [facility] Erythrocyte distribution width (RBC) [Ratio] 14.6 % 11.6-14.6 [facility] Immature granulocytes/100 WBC (Bld) 0.200 % 0.0-0.9 [facility] Comment on above: IG% - Immature Granu locytes (promyelocytes, myelocytes and metamyelocytes) > 1% indicates that a LEFT SHIFT is Present. MCH (RBC) [Entitic mass] 26.6 pg 27.0-32.0 [facility] Nucleated RBC/100 WBC (Bld) [Ratio] 0 % 0-5 [facility] MCHC Auto (RBC) [Mass/Vol]Or dered By: Anthony Sosa on 02-15-2023 MCHC (RBC) [Mass/Vol] 30.5 g/dL 32-36 [facility] No Panel InformationOrdered By: Anthony Sosa on 02-15-2023 Total Iron Binding Capacity 315 ug/dL 250-450 [facility] Platelets bldOrdered By: Nimco Sosa on 02-15-2023 Platelets (Bld) [#/Vol] 128 10*3/uL 150-450 [facility] Serum or plasma ferritin latricia surement (mass/volume)Ordered By: Anthony Sosa on 02-15-2023 Ferritin [Mass/Vol] 15 ng/mL 26-388 [facility] Serum or plasma iron saturat ion measurement (mass fraction)Ordered By: Anthony Sosa on 02-15-2023 Iron saturation [Mass fraction] 33.3 % 15.0-55.0 [facility] Basophil percentageOrdered B y: Erika Amin on 02-14-2023 Basophil percentage 3.5 mg/dL 2.5-4.9 [facility] Bilirubin [Mass/Vol] 0.40 mg/dL 0.20-1.00 [facility] Comment on above: For patients on eltr ombopag therapy, use of Dimension Burt TBIL is not recommended. Chloride [Moles/Vol] 110 mmol/L 98-107 [facility] Glucose [Mass/Vol] 290 mg/dL 74-106 [facility] Comment on above: Glucose result great er than or equal to 200 mg/dLsuggests DIABETES MELLITUS per A.D.A. criteria. Lactate [Moles/Vol] 1.4 mmol/L 0.4-2.0 [facility] Potassium [Moles/Vol] 4.9 mmol/L 3.5-5.1 [facility] Protein [Mass/Vol] 6.2 g/dL 6.4-8.2 [facility] Sodium [Moles/Vol] 142 mmol/L 136-145 [facility] Blood manual differential co mment interpretation (narrative result)Ordered By: Erika Amin on 02-14-2023 Manual differential comment Ric (Bld) [Interp] SCANNED [facility] Comment on above: LYMPHOPENIA NOTED Laboratory - Chemistry and C hemistry - challengeOrdered By: Erika Amin on 02-14-2023 ALP [Catalytic activity/Vol] 55 U/L 45-117 [facility] ALT [Catalytic activity/Vol] 30 U/L 16-61 [facility] CO2 [Moles/Vol] 27.0 mmol/L 21.0-32.0 [facility] Globulin (S) [Mass/Vol] 3.4 g/dL 2.2-4.2 [facility] Magnesium [Mass/Vol] 2.0 mg/dL 1.6-2.6 [facility] Urea nitrogen/Creatinine [Mass ratio] 33.8 mg/mg 10-20 [facility] - CoagulationOrde red By: Erika Amin on 02-14-2023 aPTT Coag (Bld) [Time] 246.2 s 24.1-36.2 [facility] Comment on above: CRITICAL VALUE VERIF IED. CALLED TO ICU [id number]/06/23 0736 Eli Ellis.RESULTS READ BACK BY SAME . No Panel InformationOrdered By: Erkia Amin on 02-14-2023 Estimated Creatinine Clearance Calc 15.96 ml/min [facility] Estimated GFR (MDRD) Amer 25 mL/min >60 [facility] Comment on above: GFR Calc Estimated GFR (MDRD) Non-Af Amer 21 mL/min >60 [facility] Comment on above: Non- GFR Calc Thyroid Stimulating Hormone (TSH) 1.06 uIU/mL 0.358-3.74 [facility] D-Dimer Quantitative (PE/DVT) 0.55 FEU/ug/m 0.27-0.49 [facility] Comment on above: D-Dimer ELEVATED (>0 .49): Additional studies and clinicalassessments are indicated to conclude diagnosis of:Deep Vein Thrombosis (DVT) or Pulmonary Embolism (PE)CRITICAL VALUE VERIFIED. CALLED TO Maddie KOO RN ICU02/14/23 0046 Vitaliy Sharma.RESULTS READ BACK BY SAME. Serum or plasma albumin elmira urement (mass/volume)Ordered By: Erika Amin on 02-14-2023 Albumin [Mass/Vol] 2.8 g/dL 3.2-5.0 [facility] Serum or plasma albumin/glob ulin mass ratioOrdered By: Erika Amin on 02-14-2023 Albumin/Globulin [Mass ratio] 0.8 {ratio} 0.9-2.4 [facility] Serum or plasma calcium elmira urement (mass/volume)Ordered By: Erika Amin on 02-14-2023 Calcium [Mass/Vol] 8.1 mg/dL 8.5-10.1 [facility] Serum or plasma creatinine m easurement (mass/volume)Ordered By: Erika Amin on 02-14-2023 Creatinine [Mass/Vol] 3.05 mg/dL 0.70-1.30 [facility] Comment on above: The validity of the calculated GFR & GFRAA in patients over 70 years has not been determined. Clinical correlation is essential. Serum or plasma urea nitroge n measurement (mass/volume)Ordered By: Erika Amin on 02-14-2023 Urea nitrogen [Mass/Vol] 103 mg/dL 7-18 [facility] Comment on above: Critical Result(s) C alled at: 05:42:36 02/14/2023 by: VITALIY Avila RN ICU. Results read back by same. Thin prep Papanicolaou smear with manual screeningOrdered By: Erika mAin on 02-14-2023 Thin prep Papanicolaou smear with manual screening 11 U/L 15-37 [facility] Thin prep Papanicolaou smear with manual screening 5 5-15 [facility] Absolute lymphocyte countOrd ered By: Jr Thomas on 02-13-2023 Lymphocytes Auto (Unsp spec) [#/Vol] 1.03 10*3/uL 0.83-4.51 [facility] Basophil percentageOrdered B y: Jr Thomas on 02-13-2023 Basophil percentage 0 SEEN /hpf 0-5 [facility] Basophils/100 WBC (Bld) 0.1 % 0-1 [facility] Chloride [Moles/Vol] 108 mmol/L 98-107 [facility] Eosinophils/100 WBC (Bld) 3.2 % 0-5 [facility] Glucose [Mass/Vol] 258 mg/dL 74-106 [facility] Comment on above: Glucose result great er than or equal to 200 mg/dLsuggests DIABETES MELLITUS per A.D.A. criteria. Neutrophils (Bld) [#/Vol] 17.2 10*3/uL 2.0-7.7 [facility] Neutrophils/100 WBC (Bld) 83.1 % 47-70 [facility] Potassium [Moles/Vol] 4.0 mmol/L 3.5-5.1 [facility] Sodium [Moles/Vol] 143 mmol/L 136-145 [facility] WBC (Bld) [#/Vol] 20.7 10*3/uL 4.4-11.0 [facility] Bilirubin Test strip Ql (U)O rdered By: Jr Thomas on 02-13-2023 Bilirubin Ql (U) Negative Negative [facility] Blood erythrocytes count (nu mber/volume)Ordered By: Jr Thomas on 02-13-2023 RBC (Bld) [#/Vol] 3.48 10*6/uL 4.6-6.2 [facility] Blood hemoglobin measurement (mass/volume)Ordered By: Jr Thomas on 02-13-2023 Hemoglobin (Bld) [Mass/Vol] 9.3 g/dL 13.0-16.5 [facility] Blood lymphocytes/100 leukoc ytesOrdered By: Jr Thomas on 02-13-2023 Lymphocytes/100 WBC (Bld) 5.0 % 19-41 [facility] Blood manual differential co mment interpretation (narrative result)Ordered By: Jr Thomas on 02-13-2023 Manual differential comment Ric (Bld) [Interp] SCANNED [facility] Comment on above: AUTO DIFF [place] Blood monocytes/100 leukocyt esOrdered By: Jr Thomas on 02-13-2023 Monocytes/100 WBC (Bld) 8.3 % 0-10 [facility] Blood platelet mean volumeOr dered By: Jr Thomas on 02-13-2023 Platelet mean volume (Bld) [Entitic vol] 10.9 fL 6.2-12.0 [facility] Determination of erythrocyte mean corpuscular volume (MCV)Ordered By: Jr Thomas on 02-13-2023 MCV (RBC) [Entitic vol] 87.4 fL 80-94 [facility] Hematocrit Auto (Bld) [Volum e fraction]Ordered By: Jr Thomas on 02-13-2023 Hematocrit (Bld) [Volume fraction] 30.4 % 40-54 [facility] Ketones Test strip Ql (U)Ord ered By: Jr Thomas on 02-13-2023 Ketones Ql (U) Negative Negative [facility] - Chemistry and C hemistry - challengeOrdered By: Jr Thomas on 02-13-2023 CO2 [Moles/Vol] 29.0 mmol/L 21.0-32.0 [facility] Natriuretic peptide B (Bld) [Mass/Vol] 43.2 pg/mL 0-100 [facility] Urea nitrogen/Creatinine [Mass ratio] 32.2 mg/mg 10-20 [facility] - Hematology and Cell countsOrdered By: Jr Thomas on 02-13-2023 Erythrocyte distribution width (RBC) [Entitic vol] 47.8 fL 35.1-43.9 [facility] Erythrocyte distribution width (RBC) [Ratio] 15.0 % 11.6-14.6 [facility] Immature granulocytes/100 WBC (Bld) 0.300 % 0.0-0.9 [facility] Comment on above: IG% - Immature Granu locytes (promyelocytes, myelocytes and metamyelocytes) > 1% indicates that a LEFT SHIFT is Present. MCH (RBC) [Entitic mass] 26.7 pg 27.0-32.0 [facility] Nucleated RBC/100 WBC (Bld) [Ratio] 0 % 0-5 [facility] - Microbiology an d Antimicrobial susceptibilityOrdered By: Jr Thomas on 02-13-2023 Bacteria identified Cx Nom (Bld) No growth in 5 days. [facility] Bacteria identified Cx Nom (Bld) Staphylococcus epidermidis [facility] MCHC Auto (RBC) [Mass/Vol]Or dered By: Jr Thomas on 02-13-2023 MCHC (RBC) [Mass/Vol] 30.6 g/dL 32-36 [facility] Mucus LM Ql (Urine sed)Order ed By: Jr Thomas on 02-13-2023 Mucus Ql (Urine sed) 0 SEEN /hpf [facility] Nitrite Test strip Ql (U)Ord ered By: Jr Thomas on 02-13-2023 Nitrite Ql (U) Negative Negative [facility] No Panel InformationOrdered By: Jr Thomas on 02-13-2023 Bacteria Detection (PCR) Staphylococcus epidermidis [facility] Estimated Creatinine Clearance Calc 16.18 ml/min [facility] Estimated GFR (MDRD) Amer 26 mL/min >60 [facility] Comment on above: GFR Calc Estimated GFR (MDRD) Non-Af Amer 21 mL/min >60 [facility] Comment on above: Non- GFR Calc Troponin I High Sensitivity 46 pg/mL 3.0-78.0 [facility] Comment on above: Please Note: New Arti t Units and Gender Specific Reference Ranges. For more information see Policy Stat Procedure Burt High Sensitivity Troponin (TNIH) and attachments. Platelets bldOrdered By: Stan Thomas on 02-13-2023 Platelets (Bld) [#/Vol] 207 10*3/uL 150-450 [facility] Protein Test strip Ql (U)Ord ered By: Jr Thomas on 02-13-2023 Protein Ql (U) 30 mg/dl Negative [facility] Review by pathologistOrdered By: Jr Thomas on 02-13-2023 Pathologist review Ric (Unsp spec) [Interp] Elidia orr [facility] Pathologist review Ric (Unsp spec) [Interp] Reviewed [facility] Comment on above: Previous reported re sult: Elidia orr Edited by: OSCAR on 02/15/23:1121Neutrophilic leukocytosis.Normocytic anemia.Clinical correlation necessary.Daniel Romero M.D. 02/15/23 AMENDED REPORT 02/15/23 1121 PATH REV previously reported as: Elidia orr Serum or plasma calcium elmira urement (mass/volume)Ordered By: Jr Thomas on 02-13-2023 Calcium [Mass/Vol] 9.6 mg/dL 8.5-10.1 [facility] Serum or plasma creatinine m easurement (mass/volume)Ordered By: Jr Thomas on 02-13-2023 Creatinine [Mass/Vol] 3.01 mg/dL 0.70-1.30 [facility] Comment on above: The validity of the calculated GFR & GFRAA in patients over 70 years has not been determined. Clinical correlation is essential. Serum or plasma urea nitroge n measurement (mass/volume)Ordered By: Jr Thomas on 02-13-2023 Urea nitrogen [Mass/Vol] 97 mg/dL 7-18 [facility] Squamous epithelial cells de tection in urine sediment by light microscopyOrdered By: Jr Thomas on 02-13-2023 Epithelial cells.squamous LM Ql (Urine sed) 0 SEEN /hpf 0-5 [facility] Thin prep Papanicolaou smear with manual screeningOrdered By: Jr Thomas on 02-13-2023 Thin prep Papanicolaou smear with manual screening 6 5-15 [facility] Urine blood detectionOrdered By: Jr Thomas on 02-13-2023 RBC Ql (U) 10 /ul Negative [facility] RBC Ql (U) 0 SEEN /hpf 0-5 [facility] Urine clarityOrdered By: Stan Thomas on 02-13-2023 Clarity (U) Clear Clear [facility] Urine color determinationOrd ered By: Jr Thomas on 02-13-2023 Color (U) Yellow Yellow [facility] Urine glucose detectionOrder ed By: Jr Thomas on 02-13-2023 Glucose Ql (U) 1000 mg/dl Normal [facility] Urine leukocyte esterase det ection by dipstickOrdered By: Jr Thomas on 02-13-2023 Leukocyte esterase Test strip Ql (U) Negative Negative [facility] Urine pHOrdered By: Jr moreira on 02-13-2023 pH (U) 5.0 [pH] 5.0 - 8.0 [facility] Urine sediment bacteria coun t by microscopy (number/high power field)Ordered By: Jr Thomas on 02-13-2023 Bacteria LM.HPF (Urine sed) [#/Area] 0 /[HPF] None Seen [facility] Urine specific gravity measu rementOrdered By: Jr Thomas on 02-13-2023 Specific gravity (U) [Rel density] 1.015 1.002-1.030 [facility] Urobilinogen Auto test strip Ql (U)Ordered By: Jr Thomas on 02-13-2023 Urobilinogen Ql (U) Normal mg/dl Normal [facility] Absolute lymphocyte countOrd ered By: Dustyjonathan Yan on 02-08-2023 Lymphocytes Auto (Unsp spec) [#/Vol] 1.00 10*3/uL 0.83-4.51 [facility] Basophil percentageOrdered B y: Dusty Yan on 02-08-2023 Basophils/100 WBC (Bld) 0.4 % 0-1 [facility] Chloride [Moles/Vol] 108 mmol/L 98-107 [facility] Eosinophils/100 WBC (Bld) 5.7 % 0-5 [facility] Glucose [Mass/Vol] 120 mg/dL 74-106 [facility] Comment on above: Fasting Glucose resu lt from 100 to 125 mg/dL suggests IMPAIRED HOMEOSTASIS per A.D.A. criteria. Neutrophils (Bld) [#/Vol] 3.1 10*3/uL 2.0-7.7 [facility] Neutrophils/100 WBC (Bld) 65.4 % 47-70 [facility] Potassium [Moles/Vol] 4.8 mmol/L 3.5-5.1 [facility] Sodium [Moles/Vol] 143 mmol/L 136-145 [facility] WBC (Bld) [#/Vol] 4.7 10*3/uL 4.4-11.0 [facility] Blood erythrocytes count (nu mber/volume)Ordered By: Dusty Yan on 02-08-2023 RBC (Bld) [#/Vol] 2.79 10*6/uL 4.6-6.2 [facility] Blood hemoglobin measurement (mass/volume)Ordered By: Dusty Yan on 02-08-2023 Hemoglobin (Bld) [Mass/Vol] 7.3 g/dL 13.0-16.5 [facility] Blood lymphocytes/100 leukoc ytesOrdered By: Dusty Yan on 02-08-2023 Lymphocytes/100 WBC (Bld) 21.1 % 19-41 [facility] Blood monocytes/100 leukocyt esOrdered By: Dusty Yan on 02-08-2023 Monocytes/100 WBC (Bld) 7.2 % 0-10 [facility] Blood platelet mean volumeOr dered By: Dusty Yan on 02-08-2023 Platelet mean volume (Bld) [Entitic vol] 10.7 fL 6.2-12.0 [facility] Determination of erythrocyte mean corpuscular volume (MCV)Ordered By: Dusty Yan on 02-08-2023 MCV (RBC) [Entitic vol] 86.4 fL 80-94 [facility] Hematocrit Auto (Bld) [Volum e fraction]Ordered By: Dusty Yan on 02-08-2023 Hematocrit (Bld) [Volume fraction] 24.1 % 40-54 [facility] - Chemistry and C hemistry - challengeOrdered By: Dusty Yan on 02-08-2023 CO2 [Moles/Vol] 31.0 mmol/L 21.0-32.0 [facility] Urea nitrogen/Creatinine [Mass ratio] 33.7 mg/mg 10-20 [facility] - Hematology and Cell countsOrdered By: Dusty Yan on 02-08-2023 Erythrocyte distribution width (RBC) [Entitic vol] 46.3 fL 35.1-43.9 [facility] Erythrocyte distribution width (RBC) [Ratio] 14.9 % 11.6-14.6 [facility] Immature granulocytes/100 WBC (Bld) 0.200 % 0.0-0.9 [facility] Comment on above: IG% - Immature Granu locytes (promyelocytes, myelocytes and metamyelocytes) > 1% indicates that a LEFT SHIFT is Present. MCH (RBC) [Entitic mass] 26.2 pg 27.0-32.0 [facility] Nucleated RBC/100 WBC (Bld) [Ratio] 0 % 0-5 [facility] MCHC Auto (RBC) [Mass/Vol]Or dered By: Dusty Yan on 02-08-2023 MCHC (RBC) [Mass/Vol] 30.3 g/dL 32-36 [facility] No Panel InformationOrdered By: Dusty Yan on 02-08-2023 Estimated Creatinine Clearance Calc 16.91 ml/min [facility] Estimated GFR (MDRD) Amer 27 mL/min >60 [facility] Comment on above: GFR Calc Estimated GFR (MDRD) Non-Af Amer 22 mL/min >60 [facility] Comment on above: Non- GFR Calc Platelets bldOrdered By: Dusty Yan on 02-08-2023 Platelets (Bld) [#/Vol] 120 10*3/uL 150-450 [facility] Serum or plasma calcium elmira urement (mass/volume)Ordered By: Dusty Yan on 02-08-2023 Calcium [Mass/Vol] 9.3 mg/dL 8.5-10.1 [facility] Serum or plasma creatinine m easurement (mass/volume)Ordered By: Dusty Yan on 02-08-2023 Creatinine [Mass/Vol] 2.88 mg/dL 0.70-1.30 [facility] Comment on above: The validity of the calculated GFR & GFRAA in patients over 70 years has not been determined. Clinical correlation is essential. Serum or plasma urea nitroge n measurement (mass/volume)Ordered By: Dusty Yan on 02-08-2023 Urea nitrogen [Mass/Vol] 97 mg/dL 7-18 [facility] Thin prep Papanicolaou smear with manual screeningOrdered By: Dusty Yan on 02-08-2023 Thin prep Papanicolaou smear with manual screening 4 -15 [facility] .Auto Diffon 02-07-2023 Basophil, Absolute 0.0 10 3/mcL Normal 0.0-0.2 [facility] ([place]) Comment on above: Performed By: #### G FR, CBC, ANEU, ADIFF, BMP ####[address] [place], [place] [address] Basophils/100 WBC (Bld) 0.8 % Normal 0.0-2.5 [facility] ([place]) Comment on above: Performed By: #### G FR, CBC, ANEU, ADIFF, BMP ####[address] [place], [place] [address] Eosinophil, Absolute 0.3 10 3/mcL Normal 0.0-0.4 [facility] ([place]) Comment on above: Performed By: #### G FR, CBC, ANEU, ADIFF, BMP ####[address] [place], [place] [address] Eosinophils/100 WBC (Bld) 4.0 % Normal 0.0-7.0 [facility] ([place]) Comment on above: Performed By: #### G FR, CBC, ANEU, ADIFF, BMP ####[address] [place], [place] [address] Lymphocyte, Absolute 1.2 10 3/mcL Normal 0.8-3.9 [facility] ([place]) Comment on above: Performed By: #### G FR, CBC, ANEU, ADIFF, BMP ####[address] [place], [place] [address] Lymphocytes/100 WBC (Bld) 18.5 % Normal 10.0-50.0 [facility] ([place]) Comment on above: Performed By: #### G FR, CBC, ANEU, ADIFF, BMP ####[address] [place], [place] [address] Monocyte, Absolute 0.4 10 3/mcL Normal 0.2-1.0 [facility] ([place]) Comment on above: Performed By: #### G FR, CBC, ANEU, ADIFF, BMP ####[address] [place], [place] [address] Monocytes/100 WBC (Bld) 6.3 % Normal 1.7-13.0 [facility] ([place]) Comment on above: Performed By: #### G FR, CBC, ANEU, ADIFF, BMP ####[address] [place], [place] [address] Neutrophils/100 WBC (Bld) 70.4 % Normal 37.0-80.0 [facility] ([place] Comment on above: Performed By: #### G FR, CBC, ANEU, ADIFF, BMP ####[address] [place], [place] [address] .GFRon 02-07-2023 GFR 27 ml/min/1.73sqm Normal [facility] ([place] Comment on above: Result Comment: GFR Population [...] FR, CBC, ANEU, ADIFF, BMP ####[address] [place], [place] [address] GFR Non- 22 ml/min/1.73sqm Normal [facility] ([place] Comment on above: Result Comment: GFR Population [...] FR, CBC, ANEU, ADIFF, BMP ####[address] [place], [place] [address] .NEUABSon 02-07-2023 Neutrophil, Absolute 4.6 10 3/mcL Normal 2.9-6.2 [facility] ([place]) Comment on above: Performed By: #### Jerrell FR, CBC, ANEU, ADIFF, BMP ####[address] [place], [place] [address] BMPon 02-07-2023 BUN/Creatinine Ratio 36 ratio High 7-27 [facility] ([place]) Comment on above: Performed By: #### Jerrell FR, CBC, ANEU, ADIFF, BMP ####[address] [place], [place] [address] Calcium [Mass/Vol] 9.0 mg/dL Normal 8.4-10.2 [facility] ([place]) Comment on above: Performed By: #### Jerrell FR, CBC, ANEU, ADIFF, BMP ####[address] [place], [place] [address] Chloride [Moles/Vol] 106 mmol/L Normal 98-107 [facility] ([place] Comment on above: Performed By: #### Jerrell FR, CBC, ANEU, ADIFF, BMP ####[address] [place], [place] [address] CO2 [Moles/Vol] 30 mmol/L Normal 23-31 [facility] ([place] Comment on above: Performed By: #### G FR, CBC, ANEU, ADIFF, BMP ####[address] [place], [place] [address] Creatinine [Mass/Vol] 2.77 mg/dL High 0.70-1.30 [facility] ([place]) Comment on above: Performed By: #### G FR, CBC, ANEU, ADIFF, BMP ####[address] [place], [place] [address] Electrolyte Balance 7.0 mEq/L Normal 4.0-15.0 [facility] ([place]) Comment on above: Performed By: #### G FR, CBC, ANEU, ADIFF, BMP ####[address] [place], [place] [address] Glucose [Mass/Vol] 134 mg/dL High 83-110 [facility] ([place] Comment on above: Performed By: #### G FR, CBC, ANEU, ADIFF, BMP ####[address] [place], [place] [address] Potassium [Moles/Vol] 5.2 mmol/L High 3.5-5.1 [facility] ([place]) Comment on above: Performed By: #### G FR, CBC, ANEU, ADIFF, BMP ####[address] [place], [place] [address] Sodium [Moles/Vol] 143 mmol/L Normal 136-145 [facility] ([place] Comment on above: Performed By: #### G FR, CBC, ANEU, ADIFF, BMP ####[address] [place], [place] [address] Urea nitrogen [Mass/Vol] 99 mg/dL High 7-18 [facility] ([place] Comment on above: Performed By: #### G FR, CBC, ANEU, ADIFF, BMP ####[address] [place], [place] [address] CBCon 02-07-2023 Erythrocyte distribution width (RBC) [Ratio] 15.8 % High 11.5-14.5 [facility] ([place] Comment on above: Performed By: #### G FR, CBC, ANEU, ADIFF, BMP ####[address] [place], [place] [address] Hematocrit (Bld) [Volume fraction] 24.2 % Low 42.0-52.0 [facility] ([place] Comment on above: Performed By: #### G FR, CBC, ANEU, ADIFF, BMP ####[address] [place], [place] [address] Hgb 7.8 G/dL Low 14.0-18.0 [facility] ([place] Comment on above: Performed By: #### Jerrell FR, CBC, ANEU, ADIFF, BMP ####[address] [place], [place] [address] MCH (RBC) [Entitic mass] 26.6 pg Low 27.0-31.2 [facility] ([place] Comment on above: Performed By: #### G FR, CBC, ANEU, ADIFF, BMP ####[address] [place], [place] [address] MCHC 32.0 G/dL Normal 31.8-35.4 [facility] ([place] Comment on above: Performed By: #### G FR, CBC, ANEU, ADIFF, BMP ####[address] [place], [place] [address] MCV (RBC) [Entitic vol] 83.0 fL Normal 80.0-94.0 A [facility] ([place]) Comment on above: Performed By: #### Jerrell FR, CBC, ANEU, ADIFF, BMP ####[address] [place], [place] [address] Platelet 128 10 3/mcL Low 130-400 [facility] ([place] Comment on above: Performed By: #### G FR, CBC, ANEU, ADIFF, BMP ####[address] [place], [place] [address] Platelet mean volume (Bld) [Entitic vol] 9.0 fL Normal 7.4-10.4 [facility] ([place] Comment on above: Performed By: #### G FR, CBC, ANEU, ADIFF, BMP ####[address] [place], [place] [address] RBC 2.92 10 6/mcL Low 4.04-6.13 [facility] ([place] Comment on above: Performed By: #### G FR, CBC, ANEU, ADIFF, BMP ####[address] [place], [place] [address] WBC 6.5 10 3/mcL Normal 4.6-10.8 [facility] ([place] Comment on above: Performed By: #### G FR, CBC, ANEU, ADDEE, BMP ####[address] [place], [place] [address] LABORATORYOrdered By: SYSTEM SYSTEM on 02-07-2023 Basophil, [...] SS .GFRon 02-02-2023 GFR 27 ml/min/1.73sqm Normal [facility] ([place] Comment on above: Result Comment: GFR Population [...] Performed By: #### C MP, GFR ####[address] [place], [place] [address] GFR Non- 22 ml/min/1.73sqm Normal [facility] ([place]) Comment on above: Result Comment: GFR Population [...] Performed By: #### C MP, GFR ####[address] [place], [place] [address] CMPon 02-02-2023 Albumin Level 3.4 G/dL Normal 3.4-4.8 [facility] ([place] Comment on above: Performed By: #### C MP, GFR ####Katie [address] [place], [place] [address] Albumin/Globulin [Mass ratio] 0.9 {ratio} Low 1.1-2.5 [facility] ([place] Comment on above: Performed By: #### C MP, GFR ####Katie Uqu[address] [place], [place] [address] ALP [Catalytic activity/Vol] 71 U/L Normal 40-135 [facility] ([place] Comment on above: Performed By: #### C MP, GFR ####Katie Frxjgkpl[address] [place], [place] [address] ALT [Catalytic activity/Vol] 27 U/L Normal 16-63 [facility] ([place] Comment on above: Performed By: #### C MP, GFR ####Katie Jfvnysnh[address] [place], [place] [address] AST [Catalytic activity/Vol] 17 U/L Normal 10-40 [facility] ([place] Comment on above: Performed By: #### C MP, GFR ####Katie [address] [place], [place] [address] Bili Total 0.3 mg/dL Normal 0.2-1.0 [facility] ([place] Comment on above: Result Comment: Use of this assay is not recommended for patients undergoing treatment with eltrombopag due to the potential for falsely elevated results. Performed By: #### C MP, GFR ####Katie Fjhcfppr[address] [place], [place] [address] BUN/Creatinine Ratio 34 ratio High 7-27 [facility] ([place] Comment on above: Performed By: #### C MP, GFR ####Katie Q[address]pjj[address] [place], [place] [address] Calcium [Mass/Vol] 8.8 mg/dL Normal 8.4-10.2 [facility] ([place] Comment on above: Performed By: #### C MP, GFR ####Katie [address] [place], [place] [address] Chloride [Moles/Vol] 106 mmol/L Normal 98-107 [facility] ([place] Comment on above: Performed By: #### C MP, GFR ####Katie [address] [place], [place] [address] CO2 [Moles/Vol] 28 mmol/L Normal 23-31 [facility] ([place] Comment on above: Performed By: #### C MP, GFR ####Katie Kovqfhjd[address] [place], [place] [address] Creatinine [Mass/Vol] 2.77 mg/dL High 0.70-1.30 [facility] ([place] Comment on above: Performed By: #### C MP, GFR ####Katie Rjg[address] [place], [place] [address] Electrolyte Balance 9.0 mEq/L Normal 4.0-15.0 [facility] ([place] Comment on above: Performed By: #### C MP, GFR ####Katie Krcb[address] [place], [place] [address] Globulin 3.8 G/dL Normal [facility] ([place] Comment on above: Performed By: #### C MP, GFR ####Katie Y[address] [place], [place] [address] Glucose [Mass/Vol] 123 mg/dL High 83-110 [facility] ([place] Comment on above: Performed By: #### C MP, GFR ####Katie [address] [place], [place] [address] Potassium [Moles/Vol] 5.2 mmol/L High 3.5-5.1 [facility] ([place] Comment on above: Performed By: #### C MP, GFR ####Katie Agewqoor[address] [place], [place] [address] Sodium [Moles/Vol] 143 mmol/L Normal 136-145 [facility] ([place] Comment on above: Performed By: #### C MP, GFR ####Katie Clqmd[address]zj[address] [place], [place] [address] Total Protein 7.2 G/dL Normal 6.4-8.2 [facility] ([place] Comment on above: Performed By: #### C MP, GFR ####Katie Suc[address] [place], [place] [address] Urea nitrogen [Mass/Vol] 94 mg/dL High 7-18 [facility] ([place] Comment on above: Performed By: #### C MP, GFR ####Katie Lvjmbgaz[address] [place], [place] [address] LABORATORYOrdered By: Javier Vega on 02-02-2023 Albumin [...] 02-02-2023 U Creatinine 29.0 mg/dL Low 39.0-259.0 [facility] ([place] Comment on above: Performed By: #### M ALBR ####Katie Dqdqymzd[address] [place], [place] [address] U Microalb 4585 mcg/dL Normal [facility] ([place] Comment on above: Performed By: #### M ALBR ####Katie Xe[address] [place], [place] [address] U Ratio Alb/Cre 158 mcg/mg High 0-30 [facility] ([place] Comment on above: Performed By: #### M ALBR ####Katie I[address] [place], [place] [address] .Auto Diffon 01-23-2023 Basophil, Absolute 0.1 10 3/mcL Normal 0.0-0.2 [facility] ([place] Comment on above: Performed By: #### C BC, ANEU, ADIFF, GFR, CMP ####Katie [address] [place], [place] [address] Basophils/100 WBC (Bld) 1.0 % Normal 0.0-2.5 A [facility] ([place] Comment on above: Performed By: #### C BC, ANEU, ADIFF, GFR, CMP ####Katie [address] [place], [place] [address] Eosinophil, Absolute 0.3 10 3/mcL Normal 0.0-0.4 [facility] ([place] Comment on above: Performed By: #### C BC, ANEU, ADIFF, GFR, CMP ####Katie [address] [place], [place] [address] Eosinophils/100 WBC (Bld) 4.8 % Normal 0.0-7.0 [facility] ([place] Comment on above: Performed By: #### C BC, ANEU, ADIFF, GFR, CMP ####Katie [address] [place], [place] [address] Lymphocyte, Absolute 1.2 10 3/mcL Normal 0.8-3.9 [facility] ([place] Comment on above: Performed By: #### C BC, ANEU, ADIFF, GFR, CMP ####Katie [address] [place], [place] [address] Lymphocytes/100 WBC (Bld) 19.6 % Normal 10.0-50.0 [facility] ([place] Comment on above: Performed By: #### C BC, ANEU, ADIFF, GFR, CMP ####Katie [address] [place], [place] [address] Monocyte, Absolute 0.5 10 3/mcL Normal 0.2-1.0 [facility] ([place] Comment on above: Performed By: #### C BC, ANEU, ADIFF, GFR, CMP ####Katie [address] [place], [place] [address] Monocytes/100 WBC (Bld) 8.4 % Normal 1.7-13.0 A [facility] ([place]) Comment on above: Performed By: #### C BC, ANEU, ADIFF, GFR, CMP ####Katie [address] [place], [place] [address] Neutrophils/100 WBC (Bld) 66.2 % Normal 37.0-80.0 [facility] ([place]) Comment on above: Performed By: #### C BC, ANEU, ADIFF, GFR, CMP ####Katie [address] [place], [place] [address] .GFRon 01-23-2023 GFR 27 ml/min/1.73sqm Normal [facility] ([place]) Comment on above: Result Comment: [...] C BC, ANEU, ADIFF, GFR, CMP ####Katie [address] [place], [place] [address] GFR Non- 22 ml/min/1.73sqm Normal [facility] ([place]) Comment on above: Result Comment: [...] BC, ANEU, ADIFF, GFR, CMP ####Katie [address] [place], [place] [address] .NEUABSon 01-23-2023 Neutrophil, Absolute 4.2 10 3/mcL Normal 2.9-6.2 [facility] ([place] Comment on above: Performed By: #### C BC, ANEU, ADIFF, GFR, CMP ####Katie [address] [place], [place] [address] CBCon 01-23-2023 Erythrocyte distribution width (RBC) [Ratio] 14.9 % High 11.5-14.5 [facility] ([place] Comment on above: Performed By: #### C BC, ANEU, ADIFF, GFR, CMP ####Katie [address] [place], [place] [address] Hematocrit (Bld) [Volume fraction] 26.9 % Low 42.0-52.0 [facility] ([place] Comment on above: Performed By: #### C BC, ANEU, ADIFF, GFR, CMP ####Katie [address] [place], [place] [address] Hgb 8.7 G/dL Low 14.0-18.0 [facility] ([place] Comment on above: Performed By: #### C BC, ANEU, ADIFF, GFR, CMP ####Katie [address] [place], [place] [address] MCH (RBC) [Entitic mass] 27.1 pg Normal 27.0-31.2 [facility] ([place] Comment on above: Performed By: #### C BC, ANEU, ADIFF, GFR, CMP ####Katie [address] [place], [place] [address] MCHC 32.4 G/dL Normal 31.8-35.4 [facility] ([place] Comment on above: Performed By: #### C BC, ANEU, ADIFF, GFR, CMP ####Katie [address] [place], [place] [address] MCV (RBC) [Entitic vol] 83.6 fL Normal 80.0-94.0 A [facility] ([place] Comment on above: Performed By: #### C BC, ANEU, ADIFF, GFR, CMP ####Katie [address] [place], [place] [address] Platelet 130 10 3/mcL Normal 130-400 [facility] ([place] Comment on above: Performed By: #### C BC, ANEU, ADIFF, GFR, CMP ####Katie [address] [place], [place] [address] Platelet mean volume (Bld) [Entitic vol] 9.0 fL Normal 7.4-10.4 [facility] ([place] Comment on above: Performed By: #### C BC, ANEU, ADIFF, GFR, CMP ####Katie [address] [place], [place] [address] RBC 3.22 10 6/mcL Low 4.04-6.13 [facility] ([place] Comment on above: Performed By: #### C BC, ANEU, ADIFF, GFR, CMP ####Katie [address] [place], [place] [address] WBC 6.4 10 3/mcL Normal 4.6-10.8 [facility] ([place] Comment on above: Performed By: #### C BC, ANEU, ADIFF, GFR, CMP ####Katie [address] [place], [place] [address] CMPon 01-23-2023 Albumin Level 3.7 G/dL Normal 3.4-4.8 [facility] ([place] Comment on above: Performed By: #### C BC, ANEU, ADIFF, GFR, CMP ####Katie [address] [place], [place] [address] Albumin/Globulin [Mass ratio] 1.0 {ratio} Low 1.1-2.5 [facility] ([place] Comment on above: Performed By: #### C BC, ANEU, ADIFF, GFR, CMP ####Katie [address] [place], [place] [address] ALP [Catalytic activity/Vol] 77 U/L Normal 40-135 [facility] ([place] Comment on above: Performed By: #### C BC, ANEU, ADIFF, GFR, CMP ####Katie [address] [place], [place] [address] ALT [Catalytic activity/Vol] 20 U/L Normal 16-63 [facility] ([place] Comment on above: Performed By: #### C BC, ANEU, ADIFF, GFR, CMP ####Katie [address] [place], [place] [address] AST [Catalytic activity/Vol] 13 U/L Normal 10-40 [facility] ([place] Comment on above: Performed By: #### C BC, ANEU, ADIFF, GFR, CMP ####Katie [address] [place], [place] [address] Bili Total 0.4 mg/dL Normal 0.2-1.0 [facility] ([place] Comment on above: Result Comment: Use of this assay is not recommended for patients undergoing treatment with eltrombopag due to the potential for falsely elevated results. Performed By: #### C BC, ANEU, ADIFF, GFR, CMP ####Katie [address] [place], [place] [address] BUN/Creatinine Ratio 22 ratio Normal 7-27 [facility] ([place] Comment on above: Performed By: #### C BC, ANEU, ADIFF, GFR, CMP ####Katie [address] [place], [place] [address] Calcium [Mass/Vol] 9.2 mg/dL Normal 8.4-10.2 [facility] ([place] Comment on above: Performed By: #### C BC, ANEU, ADIFF, GFR, CMP ####Katie [address] [place], [place] [address] Chloride [Moles/Vol] 105 mmol/L Normal 98-107 [facility] ([place] Comment on above: Performed By: #### C BC, ANEU, ADIFF, GFR, CMP ####Katie [address] [place], [place] [address] CO2 [Moles/Vol] 30 mmol/L Normal 23-31 [facility] ([place] Comment on above: Performed By: #### C BC, ANEU, ADIFF, GFR, CMP ####Katie [address] [place], [place] [address] Creatinine [Mass/Vol] 2.76 mg/dL High 0.70-1.30 [facility] ([place] Comment on above: Performed By: #### C BC, ANEU, ADIFF, GFR, CMP ####Katie [address] [place], [place] [address] Electrolyte Balance 9.0 mEq/L Normal 4.0-15.0 [facility] ([place] Comment on above: Performed By: #### C BC, ANEU, ADIFF, GFR, CMP ####Katie [address] [place], [place] [address] Globulin 3.7 G/dL Normal [facility] ([place] Comment on above: Performed By: #### C BC, ANEU, ADIFF, GFR, CMP ####Katie [address] [place], [place] [address] Glucose [Mass/Vol] 112 mg/dL High 83-110 [facility] ([place] Comment on above: Performed By: #### C BC, ANEU, ADIFF, GFR, CMP ####Katie [address] [place], [place] [address] Potassium [Moles/Vol] 4.8 mmol/L Normal 3.5-5.1 [facility] ([place] Comment on above: Performed By: #### C BC, ANEU, ADIFF, GFR, CMP ####Katie [address] [place], [place] [address] Sodium [Moles/Vol] 144 mmol/L Normal 136-145 [facility] ([place] Comment on above: Performed By: #### C BC, ANEU, ADIFF, GFR, CMP ####Katie [address] [place], [place] [address] Total Protein 7.4 G/dL Normal 6.4-8.2 [facility] ([place] Comment on above: Performed By: #### C BC, ANEU, ADIFF, GFR, CMP ####Katie[address] [place], [place] [address] Urea nitrogen [Mass/Vol] 60 mg/dL High 7-18 [facility] ([place] Comment on above: Performed By: #### C BC, ANEU, ADIFF, GFR, CMP ####Katie [address] [place], [place] [address] .Auto Diffon 01-19-2023 Basophil, Absolute 0.1 10 3/mcL Normal 0.0-0.2 [facility] ([place] Comment on above: Performed By: #### C BC, ANEU, ADIFF, BMP, GFR ####Katie [address] [place], [place] [address] Basophils/100 WBC (Bld) 1.0 % Normal 0.0-2.5 [facility] ([place] Comment on above: Performed By: #### C BC, ANEU, ADIFF, BMP, GFR ####Katie [address] [place], [place] [address] Eosinophil, Absolute 0.3 10 3/mcL Normal 0.0-0.4 [facility] ([place] Comment on above: Performed By: #### C BC, ANEU, ADIFF, BMP, GFR ####Katie [address] [place], [place] [address] Eosinophils/100 WBC (Bld) 5.7 % Normal 0.0-7.0 [facility] ([place] Comment on above: Performed By: #### C BC, ANEU, ADIFF, BMP, GFR ####Katie [address] [place], [place] [address] Lymphocyte, Absolute 1.4 10 3/mcL Normal 0.8-3.9 [facility] ([place] Comment on above: Performed By: #### C BC, ANEU, ADIFF, BMP, GFR ####Katie [address] [place], [place] [address] Lymphocytes/100 WBC (Bld) 24.7 % Normal 10.0-50.0 [facility] ([place]) Comment on above: Performed By: #### C BC, ANEU, ADIFF, BMP, GFR ####Katie [address] [place], [place] [address] Monocyte, Absolute 0.5 10 3/mcL Normal 0.2-1.0 [facility] ([place] Comment on above: Performed By: #### C BC, ANEU, ADIFF, BMP, GFR ####Katie [address] [place], [place] [address] Monocytes/100 WBC (Bld) 8.4 % Normal 1.7-13.0 [facility] ([place] Comment on above: Performed By: #### C BC, ANEU, ADIFF, BMP, GFR ####Kaite [address] [place], [place] [address] Neutrophils/100 WBC (Bld) 60.2 % Normal 37.0-80.0 [facility] ([place] Comment on above: Performed By: #### C BC, ANEU, ADIFF, BMP, GFR ####Katie [address] [place], [place] [address] .GFRon 01-19-2023 GFR Non- 26 ml/min/1.73sqm Normal [facility] ([place] Comment on above: Result Comment: GFR Population [...] C BC, ANEU, ADIFF, BMP, GFR ####Katie [address] [place], [place] [address] GFR 32 ml/min/1.73sqm Normal [facility] ([place] Comment on above: Result Comment: GFR Population [...] BC, ANEU, ADIFF, BMP, GFR ####Katie [address] [place], [place] [address] .NEUABSon 01-19-2023 Neutrophil, Absolute 3.5 10 3/mcL Normal 2.9-6.2 [facility] ([place] Comment on above: Performed By: #### C BC, ANEU, ADIFF, BMP, GFR ####Katie [address] [place], [place] [address] BMPon 01-19-2023 BUN/Creatinine Ratio 26 ratio Normal 7-27 [facility] ([place] Comment on above: Performed By: #### C BC, ANEU, ADIFF, BMP, GFR ####Katiez[address] [place], [place] [address] Calcium [Mass/Vol] 8.6 mg/dL Normal 8.4-10.2 [facility] ([place] Comment on above: Performed By: #### C BC, ANEU, ADIFF, BMP, GFR ####Katie [address] [place], [place] [address] Chloride [Moles/Vol] 106 mmol/L Normal 98-107 [facility] ([place] Comment on above: Performed By: #### C BC, ANEU, ADIFF, BMP, GFR ####Katie [address] [place], [place] [address] CO2 [Moles/Vol] 31 mmol/L Normal 23-31 [facility] ([place] Comment on above: Performed By: #### C BC, ANEU, ADIFF, BMP, GFR ####Katie [address] [place], [place] [address] Creatinine [Mass/Vol] 2.39 mg/dL High 0.70-1.30 [facility] ([place] Comment on above: Performed By: #### C BC, ANEU, ADIFF, BMP, GFR ####Katie [address] [place], [place] [address] Electrolyte Balance 10.0 mEq/L Normal 4.0-15.0 [facility] ([place] Comment on above: Performed By: #### C BC, ANEU, ADIFF, BMP, GFR ####Katie [address] [place], [place] [address] Glucose [Mass/Vol] 223 mg/dL High 83-110 [facility] ([place] Comment on above: Performed By: #### C BC, ANEU, ADIFF, BMP, GFR ####Katie [address] [place], [place] [address] Potassium [Moles/Vol] 4.5 mmol/L Normal 3.5-5.1 [facility] ([place] Comment on above: Performed By: #### C BC, ANEU, ADIFF, BMP, GFR ####Katie [address] [place], [place] [address] Sodium [Moles/Vol] 147 mmol/L High 136-145 [facility] ([place] Comment on above: Performed By: #### C BC, ANEU, ADIFF, BMP, GFR ####Katie [address] [place], [place] [address] Urea nitrogen [Mass/Vol] 62 mg/dL High 7-18 [facility] ([place] Comment on above: Performed By: #### C BC, ANEU, ADIFF, BMP, GFR ####Katie [address] [place], [place] [address] CBCon 01-19-2023 Erythrocyte distribution width (RBC) [Ratio] 14.7 % High 11.5-14.5 [facility] ([place] Comment on above: Performed By: #### C BC, ANEU, ADIFF, BMP, GFR ####Katie [address] [place], [place] [address] Hematocrit (Bld) [Volume fraction] 26.1 % Low 42.0-52.0 [facility] ([place] Comment on above: Performed By: #### C BC, ANEU, ADIFF, BMP, GFR ####Katie [address] [place], [place] [address] Hgb 8.4 G/dL Low 14.0-18.0 [facility] ([place] Comment on above: Performed By: #### C BC, ANEU, ADIFF, BMP, GFR ####Katie [address] [place], [place] [address] MCH (RBC) [Entitic mass] 27.2 pg Normal 27.0-31.2 [facility] ([place] Comment on above: Performed By: #### C BC, ANEU, ADIFF, BMP, GFR ####Katie [address] [place], [place] [address] MCHC 32.1 G/dL Normal 31.8-35.4 [facility] ([place] Comment on above: Performed By: #### C BC, ANEU, ADIFF, BMP, GFR ####Katie [address] [place], [place] [address] MCV (RBC) [Entitic vol] 84.6 fL Normal 80.0-94.0 [facility] ([place] Comment on above: Performed By: #### C BC, ANEU, ADIFF, BMP, GFR ####Katie [address] [place], [place] [address] Platelet 131 10 3/mcL Normal 130-400 [facility] ([place] Comment on above: Performed By: #### C BC, ANEU, ADIFF, BMP, GFR ####Katie [address] [place], [place] [address] Platelet mean volume (Bld) [Entitic vol] 9.0 fL Normal 7.4-10.4 [facility] ([place] Comment on above: Performed By: #### C BC, ANEU, ADIFF, BMP, GFR ####Katie [address] [place], [place] [address] RBC 3.09 10 6/mcL Low 4.04-6.13 [facility] ([place] Comment on above: Performed By: #### C BC, ANEU, ADIFF, BMP, GFR ####Katie [address] [place], [place] [address] WBC 5.7 10 3/mcL Normal 4.6-10.8 [facility] ([place] Comment on above: Performed By: #### C BC, ANEU, ADIFF, BMP, GFR ####Katie [address] [place], [place] [address] LABORATORYOrdered By: Caroline Ruiz on 01-19-2023 Cholesterol [...] 01-19-2023 Cholesterol [Mass/Vol] 154 mg/dL Normal 0-200 [facility] ([place] Comment on above: Result Comment: Chol esterol Reference Interval:Less than 200 [id number] Borderline high [id number] and above High risk Performed By: #### L IPID ####Katie [address] [place], [place] [address] Cholesterol in HDL [Mass/Vol] 38 mg/dL Low 40-60 [facility] ([place] Comment on above: Performed By: #### L IPID ####Katie [address] [place], [place] [address] Cholesterol in LDL [Mass/Vol] 96 mg/dL Normal 0-130 [facility] ([place] Comment on above: Performed By: #### L IPID ####Katie [address] [place], [place] [address] Triglyceride [Mass/Vol] 100 mg/dL Normal 0-150 [facility] ([place] Comment on above: Result Comment: Trig lyceride Reference Interval:Less than 150 [id number] Borderline high [id number] High [id number] or higher Very high risk Performed By: #### L IPID ####Katie [address] [place], [place] [address] Basophil percentageOrdered B y: Talya Nichols on 12-11-2022 Basophil percentage 4.4 mg/dL 2.5-4.9 [facility] Chloride [Moles/Vol] 107 mmol/L 98-107 [facility] Glucose [Mass/Vol] 160 mg/dL 74-106 [facility] Comment on above: Fasting Glucose resu lt greater than or equal to 126 mg/dL suggests DIABETES MELLITUS per A.D.A. criteria. Potassium [Moles/Vol] 4.2 mmol/L 3.5-5.1 [facility] Sodium [Moles/Vol] 141 mmol/L 136-145 [facility] WBC (Bld) [#/Vol] 4.4 10*3/uL 4.4-11.0 [facility] Blood erythrocytes count (nu mber/volume)Ordered By: Talya Nichols on 12-11-2022 RBC (Bld) [#/Vol] 3.00 10*6/uL 4.6-6.2 [facility] Blood hemoglobin measurement (mass/volume)Ordered By: Talya Nichols on 12-11-2022 Hemoglobin (Bld) [Mass/Vol] 9.0 g/dL 13.0-16.5 [facility] Blood platelet mean volumeOr dered By: Talya Nichols on 12-11-2022 Platelet mean volume (Bld) [Entitic vol] 12.2 fL 6.2-12.0 [facility] Determination of erythrocyte mean corpuscular volume (MCV)Ordered By: Talya Nichols on 12-11-2022 MCV (RBC) [Entitic vol] 95.7 fL 80-94 [facility] Hematocrit Auto (Bld) [Volum e fraction]Ordered By: Talya Nichols on 12-11-2022 Hematocrit (Bld) [Volume fraction] 28.7 % 40-54 [facility] - Chemistry and C hemistry - challengeOrdered By: Talya Nichols on 12-11-2022 CO2 [Moles/Vol] 27.0 mmol/L 21.0-32.0 [facility] Urea nitrogen/Creatinine [Mass ratio] 30.2 mg/mg 10-20 [facility] - Hematology and Cell countsOrdered By: Talya Nichols on 12-11-2022 Erythrocyte distribution width (RBC) [Entitic vol] 46.2 fL 35.1-43.9 [facility] Erythrocyte distribution width (RBC) [Ratio] 13.2 % 11.6-14.6 [facility] MCH (RBC) [Entitic mass] 30.0 pg 27.0-32.0 [facility] MCHC Auto (RBC) [Mass/Vol]Or dered By: Talya Nichols on 12-11-2022 MCHC (RBC) [Mass/Vol] 31.4 g/dL 32-36 [facility] No Panel InformationOrdered By: Talya Nichols on 12-11-2022 Estimated GFR (MDRD) Amer 31 mL/min >60 [facility] Comment on above: GFR Calc Estimated GFR (MDRD) Non-Af Amer 25 mL/min >60 [facility] Comment on above: Non- GFR Calc Platelets bldOrdered By: Oswaldo Nichols on 12-11-2022 Platelets (Bld) [#/Vol] 104 10*3/uL 150-450 [facility] Serum or plasma albumin elmira urement (mass/volume)Ordered By: Talya Nichols on 12-11-2022 Albumin [Mass/Vol] 3.0 g/dL 3.2-5.0 [facility] Serum or plasma calcium elmira urement (mass/volume)Ordered By: Talya Nichols on 12-11-2022 Calcium [Mass/Vol] 8.9 mg/dL 8.5-10.1 [facility] Serum or plasma creatinine m easurement (mass/volume)Ordered By: Talya Nichols on 12-11-2022 Creatinine [Mass/Vol] 2.58 mg/dL 0.70-1.30 [facility] Comment on above: The validity of the calculated GFR & GFRAA in patients over 70 years has not been determined. Clinical correlation is essential. Serum or plasma urea nitroge n measurement (mass/volume)Ordered By: Talya Nichols on 12-11-2022 Urea nitrogen [Mass/Vol] 78 mg/dL 09-26 [facility] RENINDon 11-28-2022 Direct Renin 281.2 pg/mL High 3.6-81.6 [facility] ([place] Comment on above: Result Comment: A ra [...] years: 3.2-33.2 pg/mLAge >=41 years: 2.5-45.1 pg/mLPerformed By:[place] [id number] Director: Norris Malone III, M.D.CLIA#: [id number] Performed By: #### A LAMBERTO, CBC, VIDH, GFR, CMP, PBNP, ADIFF, A1C, RENIND ####[facility] [place], [place] [address]#### PTH ####[place] [address] Patient Upright or Supine Upright Normal [facility] ([place] Comment on above: Result Comment: Perf ormed By:[facility] [address] [place] [id number] Director: Norris Malone III, M.D.CLIA#: [id number] Performed By: #### A LAMBERTO, CBC, VIDH, GFR, CMP, PBNP, ADIFF, A1C, RENIND ####[place] [address]#### PTH ####[address] [address] .Auto Diffon 11-24-2022 Basophil, Absolute 0.1 10 3/mcL Normal 0.0-0.2 [facility] ([place] Comment on above: Performed By: #### A LAMBERTO, CBC, VIDH, GFR, CMP, PBNP, ADIFF, A1C, RENIND ####[place] [address]#### PTH ####[place] [address] Basophils/100 WBC (Bld) 1.0 % Normal 0.0-2.5 A [facility] ([place] Comment on above: Performed By: #### A LAMBERTO, CBC, VIDH, GFR, CMP, PBNP, ADIFF, A1C, RENIND ####[place] [address]#### PTH ####[place] [address] Eosinophil, Absolute 0.3 10 3/mcL Normal 0.0-0.4 [facility] ([place] Comment on above: Performed By: #### A LAMBERTO, CBC, VIDH, GFR, CMP, PBNP, ADIFF, A1C, RENIND ####[place] [address]#### PTH ####[place] [address] Eosinophils/100 WBC (Bld) 5.8 % Normal 0.0-7.0 [facility] ([place] Comment on above: Performed By: #### A LAMBERTO, CBC, VIDH, GFR, CMP, PBNP, ADIFF, A1C, RENIND ####[place] [address]#### PTH ####[place] [address] Lymphocyte, Absolute 1.2 10 3/mcL Normal 0.8-3.9 [facility] ([place]) Comment on above: Performed By: #### A LAMBERTO, CBC, VIDH, GFR, CMP, PBNP, ADIFF, A1C, RENIND ####[place] [address]#### PTH ####[address] [address] Lymphocytes/100 WBC (Bld) 21.5 % Normal 10.0-50.0 [facility] ([place]) Comment on above: Performed By: #### A LAMBERTO, CBC, VIDH, GFR, CMP, PBNP, ADIFF, A1C, RENIND ####[place] [address]#### PTH ####[address] [address] Monocyte, Absolute 0.4 10 3/mcL Normal 0.2-1.0 [facility] ([place]) Comment on above: Performed By: #### A LAMBERTO, CBC, VIDH, GFR, CMP, PBNP, ADIFF, A1C, RENIND ####[place] [address]#### PTH ####[address] [address] Monocytes/100 WBC (Bld) 7.7 % Normal 1.7-13.0 [facility] ([place]) Comment on above: Performed By: #### A LAMBERTO, CBC, VIDH, GFR, CMP, PBNP, ADIFF, A1C, RENIND ####[place] [address]#### PTH ####[address] [address] Neutrophils/100 WBC (Bld) 64.0 % Normal 37.0-80.0 [facility] ([place]) Comment on above: Performed By: #### A LAMBERTO, CBC, VIDH, GFR, CMP, PBNP, ADIFF, A1C, RENIND ####[place] [address]#### PTH ####[address] [address] .GFRon 11-24-2022 GFR 30 ml/min/1.73sqm Normal [facility] ([place]) Comment on above: Result Comment: GFR Population [...] CMP, PBNP, ADIFF, A1C, RENIND ####[address] [place], [place] [address]#### PTH ####[address] [address] GFR Non- 24 ml/min/1.73sqm Normal [facility] ([place]) Comment on above: Result Comment: GFR Population [...] CMP, PBNP, ADIFF, A1C, RENIND ####[address] [place], [place] [address]#### PTH ####[place] [address] .NEUABSon 11-24-2022 Neutrophil, Absolute 3.6 10 3/mcL Normal 2.9-6.2 [facility] ([place]) Comment on above: Performed By: #### A LAMBERTO, CBC, VIDH, GFR, CMP, PBNP, ADIFF, A1C, RENIND ####[place] [address]#### PTH ####[place] [address] A1Con 11-24-2022 HbA1c (Bld) [Mass fraction] 6.3 % Normal 4.3-6.4 [facility] ([place]) Comment on above: Performed By: #### A LAMBERTO, CBC, VIDH, GFR, CMP, PBNP, ADIFF, A1C, RENIND ####[place] [address]#### PTH ####[place] [address] CBCon 11-24-2022 Erythrocyte distribution width (RBC) [Ratio] 14.5 % Normal 11.5-14.5 [facility] ([place]) Comment on above: Performed By: #### A LAMBERTO, CBC, VIDH, GFR, CMP, PBNP, ADIFF, A1C, RENIND ####[place] [address]#### PTH ####[place] [address] Hematocrit (Bld) [Volume fraction] 29.6 % Low 42.0-52.0 [facility] ([place] Comment on above: Performed By: #### A LAMBERTO, CBC, VIDH, GFR, CMP, PBNP, ADIFF, A1C, RENIND ####[place] [address]#### PTH ####[place] [address] Hgb 9.8 G/dL Low 14.0-18.0 [facility] ([place] Comment on above: Performed By: #### A LAMBERTO, CBC, VIDH, GFR, CMP, PBNP, ADIFF, A1C, RENIND ####[place] [address]#### PTH ####[place] [address] MCH (RBC) [Entitic mass] 30.2 pg Normal 27.0-31.2 [facility] ([place] Comment on above: Performed By: #### A LAMBERTO, CBC, VIDH, GFR, CMP, PBNP, ADIFF, A1C, RENIND ####[place] [address]#### PTH ####[place] [address] MCHC 33.0 G/dL Normal 31.8-35.4 [facility] ([place] Comment on above: Performed By: #### A LAMBERTO, CBC, VIDH, GFR, CMP, PBNP, ADIFF, A1C, RENIND ####[place] [address]#### PTH ####[place] [address] MCV (RBC) [Entitic vol] 91.4 fL Normal 80.0-94.0 [facility] ([place]) Comment on above: Performed By: #### A LAMBERTO, CBC, VIDH, GFR, CMP, PBNP, ADIFF, A1C, RENIND ####[place] [address]#### PTH ####[place] [address] Platelet 153 10 3/mcL Normal 130-400 [facility] ([place] Comment on above: Performed By: #### A LAMBERTO, CBC, VIDH, GFR, CMP, PBNP, ADIFF, A1C, RENIND ####[place] [address]#### PTH ####[place] [address] Platelet mean volume (Bld) [Entitic vol] 8.1 fL Normal 7.4-10.4 [facility] ([place] Comment on above: Performed By: #### A LAMBERTO, CBC, VIDH, GFR, CMP, PBNP, ADIFF, A1C, RENIND ####[place] [address]#### PTH ####[place] [address] RBC 3.24 10 6/mcL Low 4.04-6.13 [facility] ([place] Comment on above: Performed By: #### A LAMBERTO, CBC, VIDH, GFR, CMP, PBNP, ADIFF, A1C, RENIND ####[place] [address]#### PTH ####[place] [address] WBC 5.7 10 3/mcL Normal 4.6-10.8 [facility] ([place] Comment on above: Performed By: #### A LAMBERTO, CBC, VIDH, GFR, CMP, PBNP, ADIFF, A1C, RENIND ####[place] [address]#### PTH ####[place] [address] CMPon 11-24-2022 Albumin Level 3.6 G/dL Normal 3.4-4.8 [facility] ([place] Comment on above: Performed By: #### A LAMBERTO, CBC, VIDH, GFR, CMP, PBNP, ADIFF, A1C, RENIND ####[place] [address]#### PTH ####[place] [address] Albumin/Globulin [Mass ratio] 1.0 {ratio} Low 1.1-2.5 [facility] ([place] Comment on above: Performed By: #### A LAMBERTO, CBC, VIDH, GFR, CMP, PBNP, ADIFF, A1C, RENIND ####[place] [address]#### PTH ####[address] [address] ALP [Catalytic activity/Vol] 81 U/L Normal 40-135 [facility] ([place] Comment on above: Performed By: #### A LAMBERTO, CBC, VIDH, GFR, CMP, PBNP, ADIFF, A1C, RENIND ####[place] [address]#### PTH ####[address] [address] ALT [Catalytic activity/Vol] 46 U/L Normal 16-63 [facility] ([place] Comment on above: Performed By: #### A LAMBERTO, CBC, VIDH, GFR, CMP, PBNP, ADIFF, A1C, RENIND ####[place] [address]#### PTH ####[place] [address] AST [Catalytic activity/Vol] 29 U/L Normal 10-40 [facility] ([place] Comment on above: Performed By: #### A LAMBERTO, CBC, VIDH, GFR, CMP, PBNP, ADIFF, A1C, RENIND ####[place] [address]#### PTH ####[address] [address] Bili Total 0.5 mg/dL Normal 0.2-1.0 [facility] ([place]) Comment on above: Result Comment: Use of this assay is not recommended for patients undergoing treatment with eltrombopag due to the potential for falsely elevated results. Performed By: #### A LAMBERTO, CBC, VIDH, GFR, CMP, PBNP, ADIFF, A1C, RENIND ####[place] [address]#### PTH ####[place] [address] BUN/Creatinine Ratio 23 ratio Normal 7-27 [facility] ([place]) Comment on above: Performed By: #### A LABMERTO, CBC, VIDH, GFR, CMP, PBNP, ADIFF, A1C, RENIND ####[place] [address]#### PTH ####[address] [address] Calcium [Mass/Vol] 8.7 mg/dL Normal 8.4-10.2 [facility] ([place]) Comment on above: Performed By: #### A LAMBERTO, CBC, VIDH, GFR, CMP, PBNP, ADIFF, A1C, RENIND ####[place] [address]#### PTH ####[place] [address] Chloride [Moles/Vol] 105 mmol/L Normal 98-107 [facility] ([place]) Comment on above: Performed By: #### A LAMBERTO, CBC, VIDH, GFR, CMP, PBNP, ADIFF, A1C, RENIND ####[place] [address]#### PTH ####[place] [address] CO2 [Moles/Vol] 28 mmol/L Normal 23-31 [facility] ([place] Comment on above: Performed By: #### A LAMBERTO, CBC, VIDH, GFR, CMP, PBNP, ADIFF, A1C, RENIND ####[place] [address]#### PTH ####[place] [address] Creatinine [Mass/Vol] 2.53 mg/dL High 0.70-1.30 [facility] ([place]) Comment on above: Performed By: #### A LAMBERTO, CBC, VIDH, GFR, CMP, PBNP, ADIFF, A1C, RENIND ####[place] [address]#### PTH ####[place] [address] Electrolyte Balance 11.0 mEq/L Normal 4.0-15.0 [facility] ([place]) Comment on above: Performed By: #### A LAMBERTO, CBC, VIDH, GFR, CMP, PBNP, ADIFF, A1C, RENIND ####[place] [address]#### PTH ####[address] [address] Globulin 3.6 G/dL Normal [facility] ([place] Comment on above: Performed By: #### A LAMBERTO, CBC, VIDH, GFR, CMP, PBNP, ADIFF, A1C, RENIND ####[place] [address]#### PTH ####[address] [address] Glucose [Mass/Vol] 207 mg/dL High 83-110 [facility] ([place]) Comment on above: Performed By: #### A LAMBERTO, CBC, VIDH, GFR, CMP, PBNP, ADIFF, A1C, RENIND ####[place] [address]#### PTH ####[address] [address] Potassium [Moles/Vol] 4.9 mmol/L Normal 3.5-5.1 [facility] ([place]) Comment on above: Performed By: #### A LAMBERTO, CBC, VIDH, GFR, CMP, PBNP, ADIFF, A1C, RENIND ####[place] [address]#### PTH ####[address] [address] Sodium [Moles/Vol] 144 mmol/L Normal 136-145 [facility] ([place]) Comment on above: Performed By: #### A LAMBERTO, CBC, VIDH, GFR, CMP, PBNP, ADIFF, A1C, RENIND ####[place] [address]#### PTH ####[address] [address] Total Protein 7.2 G/dL Normal 6.4-8.2 [facility] ([place]) Comment on above: Performed By: #### A LAMBERTO, CBC, VIDH, GFR, CMP, PBNP, ADIFF, A1C, RENIND ####[place] [address] [place], [place] [address]#### PTH ####[address] [address] Urea nitrogen [Mass/Vol] 59 mg/dL High 7-18 [facility] ([place] Comment on above: Performed By: #### A LAMBERTO, CBC, VIDH, GFR, CMP, PBNP, ADIFF, A1C, RENIND ####[place] [address] [place], [place] [address]#### PTH ####[place] [address] LABORATORYOrdered By: SYSTEM SYSTEM on 11-24-2022 25-hydroxyvitamin [...] B (Bld) [Mass/Vol] 538 pg/mL High 0-450 [facility] ([place]) Comment on above: Result Comment: NT-p roBNP results of less than 300 pg/mL effectivelyrules out acute congestive heart failure with 99% negative predictive value. Performed By: #### A LAMBERTO, CBC, VIDH, GFR, CMP, PBNP, ADIFF, A1C, RENIND ####[id number] [place], [place] [address]#### PTH ####[address] [address] PTHon 11-24-2022 PTH, Intact 235.9 pg/mL High 18.5-88.0 [facility] ([place] Comment on above: Performed By: #### A LAMBERTO, CBC, VIDH, GFR, CMP, PBNP, ADIFF, A1C, RENIND ####[place] [id number]#### PTH ####[place] [id number] VIDHon 11-24-2022 Vit. D 25-Hydroxy 39.9 ng/mL Normal [facility] ([place]) Comment on above: Result Comment: Inte rpretive Values Based on Total 25(OH) Vitamin D:Deficient <20 ng/mLInsufficient 20 - <30 ng/mLSufficient 30-100 ng/mL Performed By: #### A LAMBERTO, CBC, VIDH, GFR, CMP, PBNP, ADIFF, A1C, RENIND ####[id number] [place] [address]#### PTH ####[place] [address] Basophil percentageOrdered B y: Erika Godwin on 11-18-2022 Basophil percentage 2.6 mg/dL 2.5-4.9 [facility] Chloride [Moles/Vol] 113 mmol/L 98-107 [facility] Glucose [Mass/Vol] 254 mg/dL 74-106 [facility] Comment on above: Glucose result great er than or equal to 200 mg/dLsuggests DIABETES MELLITUS per A.D.A. criteria. Potassium [Moles/Vol] 5.0 mmol/L 3.5-5.1 [facility] Sodium [Moles/Vol] 142 mmol/L 136-145 [facility] WBC (Bld) [#/Vol] 6.0 10*3/uL 4.4-11.0 [facility] Blood erythrocytes count (nu mber/volume)Ordered By: Erika Godwin on 11-18-2022 RBC (Bld) [#/Vol] 2.80 10*6/uL 4.6-6.2 [facility] Blood hemoglobin measurement (mass/volume)Ordered By: Erika Godwin on 11-18-2022 Hemoglobin (Bld) [Mass/Vol] 8.4 g/dL 13.0-16.5 [facility] Blood platelet mean volumeOr dered By: Erika Godwin on 11-18-2022 Platelet mean volume (Bld) [Entitic vol] 10.7 fL 6.2-12.0 [facility] Determination of erythrocyte mean corpuscular volume (MCV)Ordered By: Erika Godwin on 11-18-2022 MCV (RBC) [Entitic vol] 98.9 fL 80-94 [facility] Glucose Glucometer (BldC) [M ass/Vol]Ordered By: Erika Godwin on 11-18-2022 Glucose [Mass/Vol] 258 mg/dL 74-106 [facility] Comment on above: MANAGEMENT OF PATIEN T CARE PER NURSING PROTOCOL Hematocrit Auto (Bld) [Volum e fraction]Ordered By: Erika Godwin on 11-18-2022 Hematocrit (Bld) [Volume fraction] 27.7 % 40-54 [facility] - Chemistry and C hemistry - challengeOrdered By: Erika Godwin on 11-18-2022 CO2 [Moles/Vol] 25.0 mmol/L 21.0-32.0 [facility] Magnesium [Mass/Vol] 2.1 mg/dL 1.6-2.6 [facility] Urea nitrogen/Creatinine [Mass ratio] 25.6 mg/mg 10-20 [facility] - Hematology and Cell countsOrdered By: Erika Godwin on 11-18-2022 Erythrocyte distribution width (RBC) [Entitic vol] 52.4 fL 35.1-43.9 [facility] Erythrocyte distribution width (RBC) [Ratio] 14.4 % 11.6-14.6 [facility] MCH (RBC) [Entitic mass] 30.0 pg 27.0-32.0 [facility] MCHC Auto (RBC) [Mass/Vol]Or dered By: Erika Godwin on 11-18-2022 MCHC (RBC) [Mass/Vol] 30.3 g/dL 32-36 [facility] No Panel InformationOrdered By: Erika Godwin on 11-18-2022 Estimated Creatinine Clearance Calc 20.46 ml/min [facility] Estimated GFR (MDRD) Amer 34 mL/min >60 [facility] Comment on above: GFR Calc Estimated GFR (MDRD) Non-Af Amer 28 mL/min >60 [facility] Comment on above: Non- GFR Calc Platelets bldOrdered By: Jon Godwin on 11-18-2022 Platelets (Bld) [#/Vol] 112 10*3/uL 150-450 [facility] Serum or plasma calcium elmira urement (mass/volume)Ordered By: Erika Godwin on 11-18-2022 Calcium [Mass/Vol] 8.4 mg/dL 8.5-10.1 [facility] Serum or plasma creatinine m easurement (mass/volume)Ordered By: Erika Godwin on 11-18-2022 Creatinine [Mass/Vol] 2.38 mg/dL 0.70-1.30 [facility] Comment on above: The validity of the calculated GFR & GFRAA in patients over 70 years has not been determined. Clinical correlation is essential. Serum or plasma urea nitroge n measurement (mass/volume)Ordered By: Erika Godwin on 11-18-2022 Urea nitrogen [Mass/Vol] 61 mg/dL 7-18 [facility] Thin prep Papanicolaou smear with manual screeningOrdered By: Erika Godwin on 11-18-2022 Thin prep Papanicolaou smear with manual screening 4 5-15 [facility] Absolute lymphocyte countOrd ered By: Tracy Stanley on 11-17-2022 Lymphocytes Auto (Unsp spec) [#/Vol] 1.32 10*3/uL 0.83-4.51 [facility] Basophil percentageOrdered B y: Tracy Stanley on 11-17-2022 Basophils/100 WBC (Bld) 0.7 % 0-1 [facility] Bilirubin [Mass/Vol] 1.30 mg/dL 0.20-1.00 [facility] Comment on above: For patients on eltr ombopag therapy, use of Dimension Burt TBIL is not recommended. Eosinophils/100 WBC (Bld) 8.8 % 0-5 [facility] Neutrophils (Bld) [#/Vol] 3.1 10*3/uL 2.0-7.7 [facility] Neutrophils/100 WBC (Bld) 58.6 % 47-70 [facility] Protein [Mass/Vol] 6.4 g/dL 6.4-8.2 [facility] Blood lymphocytes/100 leukoc ytesOrdered By: Tracy Stanley on 11-17-2022 Lymphocytes/100 WBC (Bld) 24.6 % 19-41 [facility] Blood monocytes/100 leukocyt esOrdered By: Tracy Stanley on 11-17-2022 Monocytes/100 WBC (Bld) 7.1 % 0-10 [facility] - Chemistry and C hemistry - challengeOrdered By: Tracy Stanley on 11-17-2022 ALP [Catalytic activity/Vol] 61 U/L 45-117 [facility] ALT [Catalytic activity/Vol] 23 U/L 16-61 [facility] Globulin (S) [Mass/Vol] 3.6 g/dL 2.2-4.2 [facility] - Hematology and Cell countsOrdered By: Tracy Stanley on 11-17-2022 Immature granulocytes/100 WBC (Bld) 0.200 % 0.0-0.9 [facility] Comment on above: IG% - Immature Granu locytes (promyelocytes, myelocytes and metamyelocytes) > 1% indicates that a LEFT SHIFT is Present. Nucleated RBC/100 WBC (Bld) [Ratio] 0 % 0-5 [facility] Serum or plasma albumin elmira urement (mass/volume)Ordered By: Tracy Angel on 11-17-2022 Albumin [Mass/Vol] 2.8 g/dL 3.2-5.0 [facility] Serum or plasma albumin/glob ulin mass ratioOrdered By: Tracy Stanley on 11-17-2022 Albumin/Globulin [Mass ratio] 0.8 {ratio} 0.9-2.4 [facility] Thin prep Papanicolaou smear with manual screeningOrdered By: [facility] Stanley on 11-17-2022 Thin prep Papanicolaou smear with manual screening 17 U/L 15-37 [facility] Absolute lymphocyte countOrd ered By: Lonnie Moreno on 11-16-2022 Lymphocytes Auto (Unsp spec) [#/Vol] 1.12 10*3/uL 0.83-4.51 [facility] Basophil percentageOrdered B y: Lonnie Moreno on 11-16-2022 Basophils/100 WBC (Bld) 0.4 % 0-1 [facility] Chloride [Moles/Vol] 103 mmol/L 98-107 [facility] Eosinophils/100 WBC (Bld) 5.5 % 0-5 [facility] Glucose [Mass/Vol] 235 mg/dL 74-106 [facility] Comment on above: Glucose result great er than or equal to 200 mg/dLsuggests DIABETES MELLITUS per A.D.A. criteria. Neutrophils (Bld) [#/Vol] 3.8 10*3/uL 2.0-7.7 [facility] Neutrophils/100 WBC (Bld) 67.7 % 47-70 [facility] Potassium [Moles/Vol] 5.1 mmol/L 3.5-5.1 [facility] Sodium [Moles/Vol] 139 mmol/L 136-145 [facility] WBC (Bld) [#/Vol] 5.7 10*3/uL 4.4-11.0 [facility] Blood erythrocytes count (nu mber/volume)Ordered By: Lonnie Moreno on 11-16-2022 RBC (Bld) [#/Vol] 2.13 10*6/uL 4.6-6.2 [facility] Blood hemoglobin measurement (mass/volume)Ordered By: Lonnie Moreno on 11-16-2022 Hemoglobin (Bld) [Mass/Vol] 6.4 g/dL 13.0-16.5 [facility] Blood lymphocytes/100 leukoc ytesOrdered By: Lonnie Moreno on 11-16-2022 Lymphocytes/100 WBC (Bld) 19.8 % 19-41 [facility] Blood monocytes/100 leukocyt esOrdered By: Lonnie Moreno on 11-16-2022 Monocytes/100 WBC (Bld) 6.2 % 0-10 [facility] Blood platelet mean volumeOr dered By: Lonnie Moreno on 11-16-2022 Platelet mean volume (Bld) [Entitic vol] 10.9 fL 6.2-12.0 [facility] COVID-19 virus antigen assay Ordered By: Lonnie Moreno on 11-16-2022 SARS-CoV-2 (COVID-19) Ag IA.rapid Ql (Resp) [facility] SARS-CoV-2 (COVID-19) Ag IA.rapid Ql (Resp) [facility] Determination of erythrocyte mean corpuscular volume (MCV)Ordered By: Lonnie Moreno on 11-16-2022 MCV (RBC) [Entitic vol] 98.1 fL 80-94 [facility] Hematocrit Auto (Bld) [Volum e fraction]Ordered By: Lonnie Moreno on 11-16-2022 Hematocrit (Bld) [Volume fraction] 20.9 % 40-54 [facility] - Chemistry and C hemistry - challengeOrdered By: Lonnie Moreno on 11-16-2022 CO2 [Moles/Vol] 29.0 mmol/L 21.0-32.0 [facility] Natriuretic peptide B (Bld) [Mass/Vol] 50.7 pg/mL 0-100 [facility] Urea nitrogen/Creatinine [Mass ratio] 29.2 mg/mg 10-20 [facility] - Hematology and Cell countsOrdered By: Lonnie Moreno on 11-16-2022 Erythrocyte distribution width (RBC) [Entitic vol] 50.7 fL 35.1-43.9 [facility] Erythrocyte distribution width (RBC) [Ratio] 14.6 % 11.6-14.6 [facility] Immature granulocytes/100 WBC (Bld) 0.400 % 0.0-0.9 [facility] Comment on above: IG% - Immature Granu locytes (promyelocytes, myelocytes and metamyelocytes) > 1% indicates that a LEFT SHIFT is Present. MCH (RBC) [Entitic mass] 30.0 pg 27.0-32.0 [facility] Nucleated RBC/100 WBC (Bld) [Ratio] 0 % 0-5 [facility] MCHC Auto (RBC) [Mass/Vol]Or dered By: Lonnie Moreno on 11-16-2022 MCHC (RBC) [Mass/Vol] 30.6 g/dL 32-36 [facility] No Panel InformationOrdered By: Lonnie Moreno on 11-16-2022 Estimated Creatinine Clearance Calc 16.73 ml/min [facility] Estimated GFR (MDRD) Amer 27 mL/min >60 [facility] Comment on above: GFR Calc Estimated GFR (MDRD) Non-Af Amer 22 mL/min >60 [facility] Comment on above: Non- GFR Calc Troponin I High Sensitivity 25 pg/mL 3.0-78.0 [facility] Comment on above: Please Note: New Arti t Units and Gender Specific Reference Ranges. For more information see Policy Stat Procedure Burt High Sensitivity Troponin (TNIH) and attachments. Platelets bldOrdered By: Robb Moreno on 11-16-2022 Platelets (Bld) [#/Vol] 124 10*3/uL 150-450 [facility] Serum or plasma calcium elmira urement (mass/volume)Ordered By: Lonnie Moreno on 11-16-2022 Calcium [Mass/Vol] 9.1 mg/dL 8.5-10.1 [facility] Serum or plasma creatinine m easurement (mass/volume)Ordered By: Lonnie Moreno on 11-16-2022 Creatinine [Mass/Vol] 2.91 mg/dL 0.70-1.30 [facility] Comment on above: The validity of the calculated GFR & GFRAA in patients over 70 years has not been determined. Clinical correlation is essential. Serum or plasma urea nitroge n measurement (mass/volume)Ordered By: Lonnie Moreno on 11-16-2022 Urea nitrogen [Mass/Vol] 85 mg/dL 7-18 [facility] Stool gastrointestinal hemog lobin detection by immunologic methodOrdered By: Lonnie Moreno on 11-16-2022 Lower GI hemoglobin IA Ql (Stl) [facility] Lower GI hemoglobin IA Ql (Stl) [facility] Thin prep Papanicolaou smear with manual screeningOrdered By: Lonnie Moreno on 11-16-2022 Thin prep Papanicolaou smear with manual screening 7 5-15 [facility] .GFRon 11-08-2022 GFR 30 ml/min/1.73sqm Normal [facility] ([place] Comment on above: Result Comment: GFR Population [...] Performed By: #### B MP, PBNP, GFR ####[address] [address] GFR Non- 25 ml/min/1.73sqm Normal [facility] ([place] Comment on above: Result Comment: GFR Population [...] Performed By: #### B MP, PBNP, GFR ####[address] [address] BMPon 11-08-2022 BUN/Creatinine Ratio 34 ratio High 7-27 [facility] ([place]) Comment on above: Performed By: #### B MP, PBNP, GFR ####[address] [address] Calcium [Mass/Vol] 9.3 mg/dL Normal 8.4-10.2 [facility] ([place] Comment on above: Performed By: #### B MP, PBNP, GFR ####[address] [address] Chloride [Moles/Vol] 104 mmol/L Normal 98-107 [facility] ([place]) Comment on above: Performed By: #### B MP, PBNP, GFR ####[address] [address] CO2 [Moles/Vol] 32 mmol/L High 23-31 [facility] ([place] Comment on above: Performed By: #### B MP, PBNP, GFR ####[address] [address] Creatinine [Mass/Vol] 2.49 mg/dL High 0.70-1.30 [facility] ([place]) Comment on above: Performed By: #### B MP, PBNP, GFR ####[address] [address] Electrolyte Balance 9.0 mEq/L Normal 4.0-15.0 [facility] ([place]) Comment on above: Performed By: #### B MP, PBNP, GFR ####[address] [address] Glucose [Mass/Vol] 241 mg/dL High 83-110 [facility] ([place] Comment on above: Performed By: #### B MP, PBNP, GFR ####[address] [address] Potassium [Moles/Vol] 5.1 mmol/L Normal 3.5-5.1 [facility] ([place] Comment on above: Performed By: #### B MP, PBNP, GFR ####[address] [address] Sodium [Moles/Vol] 145 mmol/L Normal 136-145 [facility] ([place] Comment on above: Performed By: #### B MP, PBNP, GFR ####[address] [address] Urea nitrogen [Mass/Vol] 85 mg/dL High 7-18 [facility] ([place]) Comment on above: Performed By: #### B MP, PBNP, GFR ####[address] [address] LABORATORYOrdered By: SYSTEM SYSTEM on 11-08-2022 Calcium [...] B (Bld) [Mass/Vol] 570 pg/mL High 0-450 [facility] ([place] Comment on above: Result Comment: NT-p roBNP results of less than 300 pg/mL effectivelyrules out acute congestive heart failure with 99% negative predictive value. Performed By: #### B MP, PBNP, GFR ####[address] [address] .Auto Diffon 10-31-2022 Basophil, Absolute 0.0 10 3/mcL Normal 0.0-0.2 [facility] ([place] Comment on above: Performed By: #### C BC, GFR, ADIFF, BMP, PBNP, ANEU ####[address] [address] Basophils/100 WBC (Bld) 0.3 % Normal 0.0-2.5 A [facility] ([place]) Comment on above: Performed By: #### C BC, GFR, ADIFF, BMP, PBNP, ANEU ####[address] [address] Eosinophil, Absolute 0.7 10 3/mcL High 0.0-0.4 [facility] ([place]) Comment on above: Performed By: #### C BC, GFR, ADIFF, BMP, PBNP, ANEU ####[address] [address] Eosinophils/100 WBC (Bld) 5.1 % Normal 0.0-7.0 Formerly [facility] ([place]) Comment on above: Performed By: #### C BC, GFR, ADIFF, BMP, PBNP, ANEU ####[address] [address] Lymphocyte, Absolute 2.0 10 3/mcL Normal 0.8-3.9 [facility] ([place]) Comment on above: Performed By: #### C BC, GFR, ADIFF, BMP, PBNP, ANEU ####[address] [address] Lymphocytes/100 WBC (Bld) 15.0 % Normal 10.0-50.0 Formerly [facility] ([place]) Comment on above: Performed By: #### C BC, GFR, ADIFF, BMP, PBNP, ANEU ####[address] [address] Monocyte, Absolute 0.8 10 3/mcL Normal 0.2-1.0 Formerly [facility] ([place]) Comment on above: Performed By: #### C BC, GFR, ADIFF, BMP, PBNP, ANEU ####[address] [address] Monocytes/100 WBC (Bld) 6.0 % Normal 1.7-13.0 A [facility] ([place]) Comment on above: Performed By: #### C BC, GFR, ADIFF, BMP, PBNP, ANEU ####[address] [address] Neutrophils/100 WBC (Bld) 73.6 % Normal 37.0-80.0 [facility] ([place]) Comment on above: Performed By: #### C BC, GFR, ADIFF, BMP, PBNP, ANEU ####[address] [address] .GFRon 10-31-2022 GFR 28 ml/min/1.73sqm Normal [facility] ([place] Comment on above: Result Comment: GFR Population [...] C BC, GFR, ADIFF, BMP, PBNP, ANEU ####[address] [address] GFR Non- 23 ml/min/1.73sqm Normal [facility] ([place] Comment on above: Result Comment: GFR Population [...] C BC, GFR, ADIFF, BMP, PBNP, ANEU ####[address] [address] .NEUABSon 10-31-2022 Neutrophil, Absolute 9.6 10 3/mcL High 2.9-6.2 [facility] ([place]) Comment on above: Performed By: #### C BC, GFR, ADIFF, BMP, PBNP, ANEU ####[address] [address] BMPon 10-31-2022 BUN/Creatinine Ratio 47 ratio High 7-27 [facility] ([place] Comment on above: Performed By: #### C BC, GFR, ADIFF, BMP, PBNP, ANEU ####[address] [address] Calcium [Mass/Vol] 8.2 mg/dL Low 8.4-10.2 [facility] ([place] Comment on above: Performed By: #### C BC, GFR, ADIFF, BMP, PBNP, ANEU ####[address] [address] Chloride [Moles/Vol] 102 mmol/L Normal 98-107 [facility] ([place] Comment on above: Performed By: #### C BC, GFR, ADIFF, BMP, PBNP, ANEU ####[address] [address] CO2 [Moles/Vol] 29 mmol/L Normal 23-31 [facility] ([place] Comment on above: Performed By: #### C BC, GFR, ADIFF, BMP, PBNP, ANEU ####[address] [address] Creatinine [Mass/Vol] 2.67 mg/dL High 0.70-1.30 [facility] ([place]) Comment on above: Performed By: #### C BC, GFR, ADIFF, BMP, PBNP, ANEU ####[address] [address] Electrolyte Balance 9.0 mEq/L Normal 4.0-15.0 [facility] ([place]) Comment on above: Performed By: #### C BC, GFR, ADIFF, BMP, PBNP, ANEU ####[address] [address] Glucose [Mass/Vol] 272 mg/dL High 83-110 [facility] ([place] Comment on above: Performed By: #### C BC, GFR, ADIFF, BMP, PBNP, ANEU ####[address] [address] Potassium [Moles/Vol] 4.8 mmol/L Normal 3.5-5.1 [facility] ([place] Comment on above: Performed By: #### C BC, GFR, ADIFF, BMP, PBNP, ANEU ####[address] [address] Sodium [Moles/Vol] 140 mmol/L Normal 136-145 [facility] ([place] Comment on above: Performed By: #### C BC, GFR, ADIFF, BMP, PBNP, ANEU ####[place] [address] Urea nitrogen [Mass/Vol] 126 mg/dL High 7-18 [facility] ([place] Comment on above: Performed By: #### C BC, GFR, ADIFF, BMP, PBNP, ANEU ####[place] [address] CBCon 10-31-2022 Erythrocyte distribution width (RBC) [Ratio] 15.0 % High 11.5-14.5 [facility] ([place] Comment on above: Performed By: #### C BC, GFR, ADIFF, BMP, PBNP, ANEU ####[place] [address] Hematocrit (Bld) [Volume fraction] 25.1 % Low 42.0-52.0 [facility] ([place] Comment on above: Performed By: #### C BC, GFR, ADIFF, BMP, PBNP, ANEU ####[place] [address] Hgb 8.4 G/dL Low 14.0-18.0 [facility] ([place] Comment on above: Performed By: #### C BC, GFR, ADIFF, BMP, PBNP, ANEU ####[place] [address] MCH (RBC) [Entitic mass] 30.2 pg Normal 27.0-31.2 [facility] ([place] Comment on above: Performed By: #### C BC, GFR, ADIFF, BMP, PBNP, ANEU ####[place] [address] MCHC 33.4 G/dL Normal 31.8-35.4 [facility] ([place] Comment on above: Performed By: #### C BC, GFR, ADIFF, BMP, PBNP, ANEU ####[place] [address] MCV (RBC) [Entitic vol] 90.3 fL Normal 80.0-94.0 [facility] ([place] Comment on above: Performed By: #### C BC, GFR, ADIFF, BMP, PBNP, ANEU ####[place] [address] Platelet 192 10 3/mcL Normal 130-400 [facility] ([place] Comment on above: Performed By: #### C BC, GFR, ADIFF, BMP, PBNP, ANEU ####[place] [address] Platelet mean volume (Bld) [Entitic vol] 7.9 fL Normal 7.4-10.4 [facility] ([place] Comment on above: Performed By: #### C BC, GFR, ADIFF, BMP, PBNP, ANEU ####[place] [address] RBC 2.78 10 6/mcL Low 4.04-6.13 [facility] ([place] Comment on above: Performed By: #### C BC, GFR, ADIFF, BMP, PBNP, ANEU ####[place] [address] WBC 13.1 10 3/mcL High 4.6-10.8 [facility] ([place] Comment on above: Performed By: #### C BC, GFR, ADIFF, BMP, PBNP, ANEU ####[address] [address] PBNPon 10-31-2022 Natriuretic peptide B (Bld) [Mass/Vol] 836 pg/mL High 0-450 [facility] ([place] Comment on above: Result Comment: NT-p roBNP results of less than 300 pg/mL effectivelyrules out acute congestive heart failure with 99% negative predictive value. Performed By: #### C BC, GFR, ADIFF, BMP, PBNP, ANEU ####[place] [address] XR CHEST 2 VIEWSon XR CHEST 2 VIEWS Normal [facility] ([place] .GFRon 10-24-2022 GFR 34 ml/min/1.73sqm Normal [facility] ([place] Comment on above: Result Comment: GFR Population [...] #### C MP, PBNP, GFR ####[address] [place], [place] [address] GFR Non- 28 ml/min/1.73sqm Normal [facility] ([place] Comment on above: Result Comment: GFR Population [...] #### C MP, PBNP, GFR ####[address] [place], [place] [address] [facility] Albumin Level 3.6 G/dL Normal 3.4-4.8 [facility] ([place] Comment on above: Performed By: #### C MP, PBNP, GFR ####[address] [place], [place] [address] Albumin/Globulin [Mass ratio] 0.9 {ratio} Low 1.1-2.5 [facility] ([place] Comment on above: Performed By: #### C MP, PBNP, GFR ####[address] [place], [place] [address] ALP [Catalytic activity/Vol] 80 U/L Normal 40-135 [facility] ([place] Comment on above: Performed By: #### C MP, PBNP, GFR ####[address] [place], [place] [address] ALT [Catalytic activity/Vol] 20 U/L Normal 16-63 [facility] ([place] Comment on above: Performed By: #### C MP, PBNP, GFR ####[address] [place], [place] [address] AST [Catalytic activity/Vol] 21 U/L Normal 10-40 [facility] ([place] Comment on above: Performed By: #### C MP, PBNP, GFR ####[address] [place], [place] [address] Bili Total 0.7 mg/dL Normal 0.2-1.0 [facility] ([place] Comment on above: Result Comment: Use of this assay is not recommended for patients undergoing treatment with eltrombopag due to the potential for falsely elevated results. Performed By: #### C MP, PBNP, GFR ####[address] [place], [place] [address] BUN/Creatinine Ratio 36 ratio High 7-27 [facility] ([place] Comment on above: Performed By: #### C MP, PBNP, GFR ####[address] [place], [place] [address] Calcium [Mass/Vol] 10.0 mg/dL Normal 8.4-10.2 [facility] ([place] Comment on above: Performed By: #### C MP, PBNP, GFR ####[address] [place], [place] [address] Chloride [Moles/Vol] 102 mmol/L Normal 98-107 [facility] ([place] Comment on above: Performed By: #### C MP, PBNP, GFR ####[address] [place], [place] [address] CO2 [Moles/Vol] 32 mmol/L High 23-31 [facility] ([place] Comment on above: Performed By: #### C MP, PBNP, GFR ####[address] [place], [place] [address] Creatinine [Mass/Vol] 2.22 mg/dL High 0.70-1.30 [facility] ([place] Comment on above: Performed By: #### C MP, PBNP, GFR ####[address] [place], [place] [address] Electrolyte Balance 9.0 mEq/L Normal 4.0-15.0 [facility] ([place] Comment on above: Performed By: #### C MP, PBNP, GFR ####[address] [place], [place] [address] Globulin 3.9 G/dL Normal [facility] ([place] Comment on above: Performed By: #### C MP, PBNP, GFR ####[address] [place], [place] [address] Glucose [Mass/Vol] 127 mg/dL High 83-110 [facility] ([place] Comment on above: Performed By: #### C MP, PBNP, GFR ####[address] [place], [place] [address] Potassium [Moles/Vol] 4.8 mmol/L Normal 3.5-5.1 [facility] ([place] Comment on above: Performed By: #### C MP, PBNP, GFR ####[address] [place], [place] [address] Sodium [Moles/Vol] 143 mmol/L Normal 136-145 [facility] ([place] Comment on above: Performed By: #### C MP, PBNP, GFR ####[address] [place], [place] [address] Total Protein 7.5 G/dL Normal 6.4-8.2 [facility] ([place] Comment on above: Performed By: #### C MP, PBNP, GFR ####[address] [place], [place] [address] Urea nitrogen [Mass/Vol] 80 mg/dL High 7-18 [facility] ([place] Comment on above: Performed By: #### C MP, PBNP, GFR ####[address] [place], [place] [address] LABORATORYOrdered By: SYSTEM SYSTEM on 10-24-2022 Albumin [...] B (Bld) [Mass/Vol] 779 pg/mL High 0-450 [facility] ([place] Comment on above: Result Comment: NT-p roBNP results of less than 300 pg/mL effectivelyrules out acute congestive heart failure with 99% negative predictive value. Performed By: #### C MP, PBNP, GFR ####[address] [place], [place] [address] Absolute lymphocyte countOrd ered By: Eyal Calderon on 10-22-2022 Lymphocytes Auto (Unsp spec) [#/Vol] 1.35 10*3/uL 0.83-4.51 [facility] Basophil percentageOrdered B y: Eyal Calderon on 10-22-2022 Basophils/100 WBC (Bld) 0.6 % 0-1 [facility] Chloride [Moles/Vol] 105 mmol/L 98-107 [facility] Eosinophils/100 WBC (Bld) 6.9 % 0-5 [facility] Glucose [Mass/Vol] 171 mg/dL 74-106 [facility] Comment on above: Fasting Glucose resu lt greater than or equal to 126 mg/dL suggests DIABETES MELLITUS per A.D.A. criteria. Neutrophils (Bld) [#/Vol] 4.0 10*3/uL 2.0-7.7 [facility] Neutrophils/100 WBC (Bld) 63.1 % 47-70 [facility] Potassium [Moles/Vol] 4.5 mmol/L 3.5-5.1 [facility] Sodium [Moles/Vol] 143 mmol/L 136-145 [facility] WBC (Bld) [#/Vol] 6.3 10*3/uL 4.4-11.0 [facility] Blood erythrocytes count (nu mber/volume)Ordered By: Eyal Calderon on 10-22-2022 RBC (Bld) [#/Vol] 3.02 10*6/uL 4.6-6.2 [facility] Blood hemoglobin measurement (mass/volume)Ordered By: Eyal Calderon on 10-22-2022 Hemoglobin (Bld) [Mass/Vol] 9.0 g/dL 13.0-16.5 [facility] Blood lymphocytes/100 leukoc ytesOrdered By: Eyal Calderon on 10-22-2022 Lymphocytes/100 WBC (Bld) 21.3 % 19-41 [facility] Blood monocytes/100 leukocyt esOrdered By: Eyal Calderon on 10-22-2022 Monocytes/100 WBC (Bld) 7.9 % 0-10 [facility] Blood platelet mean volumeOr dered By: Eyal Calderon on 10-22-2022 Platelet mean volume (Bld) [Entitic vol] 10.9 fL 6.2-12.0 [facility] Determination of erythrocyte mean corpuscular volume (MCV)Ordered By: Eyal Calderon on 10-22-2022 MCV (RBC) [Entitic vol] 94.4 fL 80-94 [facility] Hematocrit Auto (Bld) [Volum e fraction]Ordered By: Eyal Calderon on 10-22-2022 Hematocrit (Bld) [Volume fraction] 28.5 % 40-54 [facility] - Chemistry and C hemistry - challengeOrdered By: Eyal Calderon on 10-22-2022 CO2 [Moles/Vol] 33.0 mmol/L 21.0-32.0 [facility] Natriuretic peptide B (Bld) [Mass/Vol] 47.9 pg/mL 0-100 [facility] Urea nitrogen/Creatinine [Mass ratio] 36.4 mg/mg 10-20 [facility] - Hematology and Cell countsOrdered By: Eyal Calderon on 10-22-2022 Erythrocyte distribution width (RBC) [Entitic vol] 47.1 fL 35.1-43.9 [facility] Erythrocyte distribution width (RBC) [Ratio] 13.8 % 11.6-14.6 [facility] Immature granulocytes/100 WBC (Bld) 0.200 % 0.0-0.9 [facility] Comment on above: IG% - Immature Granu locytes (promyelocytes, myelocytes and metamyelocytes) > 1% indicates that a LEFT SHIFT is Present. MCH (RBC) [Entitic mass] 29.8 pg 27.0-32.0 [facility] Nucleated RBC/100 WBC (Bld) [Ratio] 0 % [facility]5 [facility] [Mass/Vol]Or dered By: Eyal Calderon on 10-22-2022 MCHC (RBC) [Mass/Vol] 31.6 g/dL 32-36 [facility] No Panel InformationOrdered By: Eyal Calderon on 10-22-2022 D-Dimer Quantitative (PE/DVT) 0.62 FEU/ug/m 0.27-0.49 [facility] Comment on above: D-Dimer ELEVATED (>0 .49): Additional studies and clinicalassessments are indicated to conclude diagnosis of:Deep Vein Thrombosis (DVT) or Pulmonary Embolism (PE)CRITICAL VALUE VERIFIED. CALLED TO AYAZ [id number] Roc Angel.RESULTS READ BACK BY SAME . Estimated Creatinine Clearance Calc 24.59 ml/min [facility] Estimated GFR (MDRD) Amer 42 mL/min >60 [facility] Comment on above: GFR Calc Estimated GFR (MDRD) Non-Af Amer 34 mL/min >60 [facility] Comment on above: Non- GFR Calc Troponin I High Sensitivity 24 pg/mL 3.0-78.0 [facility] Comment on above: Please Note: New Arti t Units and Gender Specific Reference Ranges. For more information see Policy Stat Procedure Burt High Sensitivity Troponin (TNIH) and attachments. Platelets bldOrdered By: Nora Calderon on 10-22-2022 Platelets (Bld) [#/Vol] 116 10*3/uL 150-450 [facility] Serum or plasma calcium elmira urement (mass/volume)Ordered By: Eyal Calderon on 10-22-2022 Calcium [Mass/Vol] 9.4 mg/dL 8.5-10.1 [facility] Serum or plasma creatinine m easurement (mass/volume)Ordered By: Eyal Calderon on 10-22-2022 Creatinine [Mass/Vol] 1.98 mg/dL 0.70-1.30 [facility] Comment on above: The validity of the calculated GFR & GFRAA in patients over 70 years has not been determined. Clinical correlation is essential. Serum or plasma urea nitroge n measurement (mass/volume)Ordered By: Eyal Calderon on 10-22-2022 Urea nitrogen [Mass/Vol] 72 mg/dL 7-18 [facility] Thin prep Papanicolaou smear with manual screeningOrdered By: Eyal Calderon on 10-22-2022 Thin prep Papanicolaou smear with manual screening 5 5-15 [facility] XR CHEST 2 VIEWSon XR CHEST 2 VIEWS Normal [facility] ([place] .Auto Diffon 10-19-2022 Basophil, Absolute 0.1 10 3/mcL Normal 0.0-0.2 [facility] ([place] Comment on above: Performed By: #### C BC, ANEU, CMP, URIC, GFR, PBNP, ADIFF ####[address] [place], [place] [address] Basophils/100 WBC (Bld) 0.9 % Normal 0.0-2.5 A [facility] ([place] Comment on above: Performed By: #### C BC, ANEU, CMP, URIC, GFR, PBNP, ADIFF ####[address] [place], [place] [address] Eosinophil, Absolute 0.3 10 3/mcL Normal 0.0-0.4 [facility] ([place] Comment on above: Performed By: #### C BC, ANEU, CMP, URIC, GFR, PBNP, ADIFF ####[address] [place], [place] [address] Eosinophils/100 WBC (Bld) 5.7 % Normal 0.0-7.0 [facility] ([place] Comment on above: Performed By: #### C BC, ANEU, CMP, URIC, GFR, PBNP, ADIFF ####[address] [place], [place] [address] Lymphocyte, Absolute 1.4 10 3/mcL Normal 0.8-3.9 [facility] ([place] Comment on above: Performed By: #### C BC, ANEU, CMP, URIC, GFR, PBNP, ADIFF ####[address] [place], [place] [address] Lymphocytes/100 WBC (Bld) 25.2 % Normal 10.0-50.0 [facility] ([place]) Comment on above: Performed By: #### C BC, ANEU, CMP, URIC, GFR, PBNP, ADIFF ####[address] [place], [place] [address] Monocyte, Absolute 0.5 10 3/mcL Normal 0.2-1.0 [facility] ([place]) Comment on above: Performed By: #### C BC, ANEU, CMP, URIC, GFR, PBNP, ADIFF ####[address] [place], [place] [address] Monocytes/100 WBC (Bld) 8.6 % Normal 1.7-13.0 [facility] ([place] Comment on above: Performed By: #### C BC, ANEU, CMP, URIC, GFR, PBNP, ADIFF ####[address] [place], [place] [address] Neutrophils/100 WBC (Bld) 59.6 % Normal 37.0-80.0 [facility] ([place] Comment on above: Performed By: #### C BC, ANEU, CMP, URIC, GFR, PBNP, ADIFF ####[address] [place], [place] [address] .GFRon 10-19-2022 GFR 44 ml/min/1.73sqm Normal [facility] ([place] Comment on above: Result Comment: GFR Population [...] CMP, URIC, GFR, PBNP, ADIFF ####[address] [place], [place] [address] GFR Non- 36 ml/min/1.73sqm Normal [facility] ([place] Comment on above: Result Comment: GFR Population [...] CMP, URIC, GFR, PBNP, ADIFF ####[address] [place], [place] [address] .NEUABSon 10-19-2022 Neutrophil, Absolute 3.4 10 3/mcL Normal 2.9-6.2 [facility] ([place] Comment on above: Performed By: #### C BC, ANEU, CMP, URIC, GFR, PBNP, ADIFF ####[address] [place], [place] [address] CBCon 10-19-2022 Erythrocyte distribution width (RBC) [Ratio] 14.7 % High 11.5-14.5 [facility] ([place] Comment on above: Performed By: #### C BC, ANEU, CMP, URIC, GFR, PBNP, ADIFF ####[address] [place], [place] [address] Hematocrit (Bld) [Volume fraction] 28.1 % Low 42.0-52.0 [facility] ([place] Comment on above: Performed By: #### C BC, ANEU, CMP, URIC, GFR, PBNP, ADIFF ####[address] [place], [place] [address] Hgb 9.3 G/dL Low 14.0-18.0 [facility] ([place] Comment on above: Performed By: #### C BC, ANEU, CMP, URIC, GFR, PBNP, ADIFF ####[address] [place], [place] [address] MCH (RBC) [Entitic mass] 29.7 pg Normal 27.0-31.2 [facility] ([place] Comment on above: Performed By: #### C BC, ANEU, CMP, URIC, GFR, PBNP, ADIFF ####[address] [place], [place] [address] MCHC 33.2 G/dL Normal 31.8-35.4 [facility] ([place] Comment on above: Performed By: #### C BC, ANEU, CMP, URIC, GFR, PBNP, ADIFF ####[address] [place], [place] [address] MCV (RBC) [Entitic vol] 89.5 fL Normal 80.0-94.0 [facility] ([place] Comment on above: Performed By: #### C BC, ANEU, CMP, URIC, GFR, PBNP, ADIFF ####[address] [place], [place] [address] Platelet 118 10 3/mcL Low 130-400 [facility] ([place] Comment on above: Performed By: #### C BC, ANEU, CMP, URIC, GFR, PBNP, ADIFF ####[address] [place], [place] [address] Platelet mean volume (Bld) [Entitic vol] 8.6 fL Normal 7.4-10.4 [facility] ([place] Comment on above: Performed By: #### C BC, ANEU, CMP, URIC, GFR, PBNP, ADIFF ####[address] [place], [place] [address] RBC 3.14 10 6/mcL Low 4.04-6.13 [facility] ([place] Comment on above: Performed By: #### C BC, ANEU, CMP, URIC, GFR, PBNP, ADIFF ####[address] [place] [id number] WBC 5.6 10 3/mcL Normal 4.6-10.8 [facility] ([place] Comment on above: Performed By: #### C BC, ANEU, CMP, URIC, GFR, PBNP, ADIFF ####[address] [place], [place] [address] CMPon 10-19-2022 Albumin Level 3.3 G/dL Low 3.4-4.8 [facility] ([place] Comment on above: Performed By: #### C BC, ANEU, CMP, URIC, GFR, PBNP, ADIFF ####[address] [place], [place] [address] Albumin/Globulin [Mass ratio] 0.9 {ratio} Low 1.1-2.5 [facility] ([place] Comment on above: Performed By: #### C BC, ANEU, CMP, URIC, GFR, PBNP, ADIFF ####[address] [place], [place] [address] ALP [Catalytic activity/Vol] 71 U/L Normal 40-135 [facility] ([place] Comment on above: Performed By: #### C BC, ANEU, CMP, URIC, GFR, PBNP, ADIFF ####[address] [place], [place] [address] ALT [Catalytic activity/Vol] 21 U/L Normal 16-63 [facility] ([place] Comment on above: Performed By: #### C BC, ANEU, CMP, URIC, GFR, PBNP, ADIFF ####[address] [place], [place] [address] AST [Catalytic activity/Vol] 16 U/L Normal 10-40 [facility] ([place] Comment on above: Performed By: #### C BC, ANEU, CMP, URIC, GFR, PBNP, ADIFF ####[address] [place], [place] [address] Bili Total 0.4 mg/dL Normal 0.2-1.0 [facility] ([place] Comment on above: Result Comment: Use of this assay is not recommended for patients undergoing treatment with eltrombopag due to the potential for falsely elevated results. Performed By: #### C BC, ANEU, CMP, URIC, GFR, PBNP, ADIFF ####[address] [place], [place] [address] BUN/Creatinine Ratio 36 ratio High 7-27 [facility] ([place] Comment on above: Performed By: #### C BC, ANEU, CMP, URIC, GFR, PBNP, ADIFF ####[address] [place], [place] [address] Calcium [Mass/Vol] 9.3 mg/dL Normal 8.4-10.2 [facility] ([place] Comment on above: Performed By: #### C BC, ANEU, CMP, URIC, GFR, PBNP, ADIFF ####[address] [place], [place] [address] Chloride [Moles/Vol] 106 mmol/L Normal 98-107 [facility] ([place] Comment on above: Performed By: #### C BC, ANEU, CMP, URIC, GFR, PBNP, ADIFF ####[address] [place], [place] [address] CO2 [Moles/Vol] 38 mmol/L High 23-31 [facility] ([place] Comment on above: Performed By: #### C BC, ANEU, CMP, URIC, GFR, PBNP, ADIFF ####[address] [place], [place] [address] Creatinine [Mass/Vol] 1.81 mg/dL High 0.70-1.30 [facility] ([place] Comment on above: Performed By: #### C BC, ANEU, CMP, URIC, GFR, PBNP, ADIFF ####[address] [place], [place] [address] Electrolyte Balance 1.0 mEq/L Low 4.0-15.0 [facility] ([place]) Comment on above: Performed By: #### C BC, ANEU, CMP, URIC, GFR, PBNP, ADIFF ####[address] [place], [place] [address] Globulin 3.8 G/dL Normal [facility] ([place] Comment on above: Performed By: #### C BC, ANEU, CMP, URIC, GFR, PBNP, ADIFF ####[address] [place], [place] [address] Glucose [Mass/Vol] 108 mg/dL Normal 83-110 [facility] ([place] Comment on above: Performed By: #### C BC, ANEU, CMP, URIC, GFR, PBNP, ADIFF ####[address] [place], [place] [address] Potassium [Moles/Vol] 5.0 mmol/L Normal 3.5-5.1 [facility] ([place] Comment on above: Performed By: #### C BC, ANEU, CMP, URIC, GFR, PBNP, ADIFF ####[address] [place], [place] [address] Sodium [Moles/Vol] 145 mmol/L Normal 136-145 [facility] ([place] Comment on above: Performed By: #### C BC, ANEU, CMP, URIC, GFR, PBNP, ADIFF ####[address] [place], [place] [address] Total Protein 7.1 G/dL Normal 6.4-8.2 [facility] ([place] Comment on above: Performed By: #### C BC, ANEU, CMP, URIC, GFR, PBNP, ADIFF ####[address] [place], [place] [address] Urea nitrogen [Mass/Vol] 65 mg/dL High 7-18 [facility] ([place] Comment on above: Performed By: #### C BC, ANEU, CMP, URIC, GFR, PBNP, ADIFF ####[address] [place], [place] [address] PBNPon 10-19-2022 Natriuretic peptide B (Bld) [Mass/Vol] 750 pg/mL High 0-450 [facility] ([place] Comment on above: Result Comment: NT-p roBNP results of less than 300 pg/mL effectivelyrules out acute congestive heart failure with 99% negative predictive value. Performed By: #### C BC, ANEU, CMP, URIC, GFR, PBNP, ADIFF ####[address] [place], [place] [address] URICon 10-19-2022 Uric Acid Lvl 9.4 mg/dL High 3.5-7.2 [facility] ([place] Comment on above: Performed By: #### C BC, ANEU, CMP, URIC, GFR, PBNP, ADIFF ####[address] [place], [place] [address] LABORATORYOrdered By: SYSTEM SYSTEM on 06-16-2022 Albumin [...] [facility] Glucose [Mass/Vol] 169 mg/dL 74-106 [facility] Comment on above: Fasting Glucose resu lt greater than or equal to 126 mg/dL suggests DIABETES MELLITUS per A.D.A. criteria. Potassium [Moles/Vol] 4.1 mmol/L 3.5-5.1 [facility] Sodium [Moles/Vol] 139 mmol/L 136-145 [facility] Glucose Glucometer (BldC) [M ass/Vol]Ordered By: Dr. Anders on 05-26-2022 Glucose [Mass/Vol] 156 mg/dL 74-106 [facility] Comment on above: MANAGEMENT OF PATIEN T CARE PER NURSING PROTOCOL Laboratory - Chemistry and C hemistry - challengeOrdered By: Dr. Anders on 05-26-2022 CO2 [Moles/Vol] 31.0 mmol/L 21.0-32.0 [facility] Urea nitrogen/Creatinine [Mass ratio] 39.6 mg/mg 10-20 [facility] No Panel InformationOrdered By: Dr. Anders on 05-26-2022 Estimated Creatinine Clearance Calc 29.31 ml/min [facility] Estimated GFR (MDRD) Amer 50 mL/min >60 [facility] Comment on above: GFR Calc Estimated GFR (MDRD) Non-Af Amer 41 mL/min >60 [facility] [facility] Comment on above: Non- GFR Calc Serum or plasma calcium elmira urement (mass/volume)Ordered By: Dr. Anders on 05-26-2022 Calcium [Mass/Vol] 9.5 mg/dL 8.5-10.1 [facility] Serum or plasma creatinine m easurement (mass/volume)Ordered By: Dr. Anders on 05-26-2022 Creatinine [Mass/Vol] 1.69 mg/dL 0.70-1.30 [facility] Comment on above: The validity of the calculated GFR & GFRAA in patients over 70 years has not been determined. Clinical correlation is essential. Serum or plasma urea nitroge n measurement (mass/volume)Ordered By: Dr. Anders on 05-26-2022 Urea nitrogen [Mass/Vol] 67 mg/dL 7-18 [facility] Thin prep Papanicolaou smear with manual screeningOrdered By: Dr. Anders on 05-26-2022 Thin prep Papanicolaou smear with manual screening 10 5-15 [facility] Absolute lymphocyte countOrd ered By: Dr. Pardo on 05-25-2022 Lymphocytes Auto (Unsp spec) [#/Vol] 1.47 10*3/uL 0.83-4.51 [facility] Basophil percentageOrdered B y: Dr. Pardo on 05-25-2022 Basophils/100 WBC (Bld) 0.3 % 0-1 [facility] Bilirubin [Mass/Vol] 1.20 mg/dL 0.20-1.00 [facility] Comment on above: For patients on eltr ombopag therapy, use of Dimension Burt TBIL is not recommended. Eosinophils/100 WBC (Bld) 1.7 % 0-5 [facility] Neutrophils (Bld) [#/Vol] 9.2 10*3/uL 2.0-7.7 [facility] Neutrophils/100 WBC (Bld) 78.7 % 47-70 [facility] Protein [Mass/Vol] 6.9 g/dL 6.4-8.2 [facility] WBC (Bld) [#/Vol] 11.7 10*3/uL 4.4-11.0 [facility] Blood erythrocytes count (nu mber/volume)Ordered By: Dr. Pardo on 05-25-2022 RBC (Bld) [#/Vol] 3.00 10*6/uL 4.6-6.2 [facility] Blood hemoglobin measurement (mass/volume)Ordered By: Dr. Pardo on 05-25-2022 Hemoglobin (Bld) [Mass/Vol] 9.3 g/dL 13.0-16.5 [facility] Blood lymphocytes/100 leukoc ytesOrdered By: Dr. Pardo on 05-25-2022 Lymphocytes/100 WBC (Bld) 12.6 % 19-41 [facility] Blood monocytes/100 leukocyt esOrdered By: Dr. Pardo on 05-25-2022 Monocytes/100 WBC (Bld) 6.4 % 0-10 [facility] Blood platelet mean volumeOr dered By: Dr. Pardo on 05-25-2022 Platelet mean volume (Bld) [Entitic vol] 10.8 fL 6.2-12.0 [facility] Determination of erythrocyte mean corpuscular volume (MCV)Ordered By: Dr. Pardo on 05-25-2022 MCV (RBC) [Entitic vol] 95.7 fL 80-94 [facility] Hematocrit Auto (Bld) [Volum e fraction]Ordered By: Dr. Pardo on 05-25-2022 Hematocrit (Bld) [Volume fraction] 28.7 % 40-54 [facility] - Chemistry and C hemistry - challengeOrdered By: Dr. Pardo on 05-25-2022 ALP [Catalytic activity/Vol] 68 U/L 45-117 [facility] ALT [Catalytic activity/Vol] 20 U/L 16-61 [facility] Globulin (S) [Mass/Vol] 4.0 g/dL 2.2-4.2 [facility] Magnesium [Mass/Vol] 1.5 mg/dL 1.6-2.6 [facility] - Hematology and Cell countsOrdered By: Dr. Pardo on 05-25-2022 Erythrocyte distribution width (RBC) [Entitic vol] 45.5 fL 35.1-43.9 [facility] Erythrocyte distribution width (RBC) [Ratio] 13.3 % 11.6-14.6 [facility] Immature granulocytes/100 WBC (Bld) 0.300 % 0.0-0.9 [facility] Comment on above: IG% - Immature Granu locytes (promyelocytes, myelocytes and metamyelocytes) > 1% indicates that a LEFT SHIFT is Present. MCH (RBC) [Entitic mass] 31.0 pg 27.0-32.0 [facility] Nucleated RBC/100 WBC (Bld) [Ratio] 0 % 0-5 [facility] MCHC Auto (RBC) [Mass/Vol]Or dered By: Dr. Pardo on 05-25-2022 MCHC (RBC) [Mass/Vol] 32.4 g/dL 32-36 [facility] No Panel InformationOrdered By: Dr. Pardo on 05-25-2022 Thyroid Stimulating Hormone (TSH) 2.10 uIU/mL 0.358-3.74 [facility] Platelets bldOrdered By: Dr. Pardo on 05-25-2022 Platelets (Bld) [#/Vol] 119 10*3/uL 150-450 [facility] Serum or plasma albumin elimra urement (mass/volume)Ordered By: Dr. Pardo on 05-25-2022 Albumin [Mass/Vol] 2.9 g/dL 3.2-5.0 [facility] Serum or plasma albumin/glob ulin mass ratioOrdered By: Dr. Pardo on 05-25-2022 Albumin/Globulin [Mass ratio] 0.7 {ratio} 0.9-2.4 [facility] Thin prep Papanicolaou smear with manual screeningOrdered By: Dr. Pardo on 05-25-2022 Thin prep Papanicolaou smear with manual screening 15 U/L 15-37 [facility] Absolute lymphocyte countOrd ered By: Dr. Edward on 05-24-2022 Lymphocytes Auto (Unsp spec) [#/Vol] 1.14 10*3/uL 0.83-4.51 [facility] Basophil percentageOrdered B y: Dr. Edward on 05-24-2022 Basophils/100 WBC (Bld) 0.4 % 0-1 [facility] Chloride [Moles/Vol] 106 mmol/L 98-107 [facility] Eosinophils/100 WBC (Bld) 2.9 % 0-5 [facility] Glucose [Mass/Vol] 178 mg/dL 74-106 [facility] Comment on above: Fasting Glucose resu lt greater than or equal to 126 mg/dL suggests DIABETES MELLITUS per A.D.A. criteria. Neutrophils (Bld) [#/Vol] 8.4 10*3/uL 2.0-7.7 [facility] Neutrophils/100 WBC (Bld) 80.1 % 47-70 [facility] Potassium [Moles/Vol] 4.3 mmol/L 3.5-5.1 [facility] Sodium [Moles/Vol] 144 mmol/L 136-145 [facility] WBC (Bld) [#/Vol] 10.4 10*3/uL 4.4-11.0 [facility] Blood erythrocytes count (nu mber/volume)Ordered By: Dr. Edward on 05-24-2022 RBC (Bld) [#/Vol] 3.21 10*6/uL 4.6-6.2 [facility] Blood hemoglobin measurement (mass/volume)Ordered By: Dr. Edward on 05-24-2022 Hemoglobin (Bld) [Mass/Vol] 9.7 g/dL 13.0-16.5 [facility] Blood lymphocytes/100 leukoc ytesOrdered By: Dr. Edward on 05-24-2022 Lymphocytes/100 WBC (Bld) 10.9 % 19-41 [facility] Blood monocytes/100 leukocyt esOrdered By: Dr. Edward on 05-24-2022 Monocytes/100 WBC (Bld) 5.4 % 0-10 [facility] Blood platelet mean volumeOr dered By: Dr. Edward on 05-24-2022 Platelet mean volume (Bld) [Entitic vol] 10.8 fL 6.2-12.0 [facility] Determination of erythrocyte mean corpuscular volume (MCV)Ordered By: Dr. Edward on 05-24-2022 MCV (RBC) [Entitic vol] 96.3 fL 80-94 [facility] Hematocrit Auto (Bld) [Volum e fraction]Ordered By: Dr. Edward on 05-24-2022 Hematocrit (Bld) [Volume fraction] 30.9 % 40-54 [facility] Influenza virus A and B and SARS-CoV-2 (COVID-19) Ag panel - Upper respiratory specimOrdered By: Dr. Pardo on 05-24-2022 SARS-CoV-2 (COVID-19) RNA JOSH+probe Ql (Resp) [facility] - Chemistry and C hemistry - challengeOrdered By: Dr. Edward on 05-24-2022 CO2 [Moles/Vol] 32.0 mmol/L 21.0-32.0 [facility] Natriuretic peptide B (Bld) [Mass/Vol] 200.1 pg/mL 0-100 [facility] Urea nitrogen/Creatinine [Mass ratio] 30.6 mg/mg 10-20 [facility] - Hematology and Cell countsOrdered By: Dr. Edward on 05-24-2022 Erythrocyte distribution width (RBC) [Entitic vol] 45.9 fL 35.1-43.9 [facility] Erythrocyte distribution width (RBC) [Ratio] 13.3 % 11.6-14.6 [facility] Immature granulocytes/100 WBC (Bld) 0.300 % 0.0-0.9 [facility] Comment on above: IG% - Immature Granu locytes (promyelocytes, myelocytes and metamyelocytes) > 1% indicates that a LEFT SHIFT is Present. MCH (RBC) [Entitic mass] 30.2 pg 27.0-32.0 [facility] Nucleated RBC/100 WBC (Bld) [Ratio] 0 % 0-5 [facility] - Microbiology an d Antimicrobial susceptibilityOrdered By: Dr. Pardo on 05-24-2022 Respiratory pathogens DNA and RNA 12b [facility] [Mass/Vol]Or dered By: Dr. Edward on 05-24-2022 MCHC (RBC) [Mass/Vol] 31.4 g/dL 32-36 [facility] No Panel InformationOrdered By: Dr. Pardo on 05-24-2022 Troponin I High Sensitivity 106 pg/mL 3.0-78.0 [facility] Comment on above: Please Note: New Arti t Units and Gender Specific Reference Ranges. For more information see Policy Stat Procedure Burt High Sensitivity Troponin (TNIH) and attachments. No Panel InformationOrdered By: Dr. Edward on 05-24-2022 Troponin I High Sensitivity 56 pg/mL 3.0-78.0 [facility] Comment on above: Please Note: New Arti t Units and Gender Specific Reference Ranges. For more information see Policy Stat Procedure Burt High Sensitivity Troponin (TNIH) and attachments. Estimated Creatinine Clearance Calc 33.70 ml/min [facility] Estimated GFR (MDRD) Amer 59 mL/min >60 [facility] Comment on above: GFR Calc Estimated GFR (MDRD) Non-Af Amer 49 mL/min >60 [facility] Comment on above: Non- GFR Calc Platelets bldOrdered By: Dr. Edward on 05-24-2022 Platelets (Bld) [#/Vol] 123 10*3/uL 150-450 [facility] Serum or plasma calcium elmira urement (mass/volume)Ordered By: Dr. Edward on 05-24-2022 Calcium [Mass/Vol] 9.5 mg/dL 8.5-10.1 [facility] Serum or plasma creatinine m easurement (mass/volume)Ordered By: Dr. Edward on 05-24-2022 Creatinine [Mass/Vol] 1.47 mg/dL 0.70-1.30 [facility] Comment on above: The validity of the calculated GFR & GFRAA in patients over 70 years has not been determined. Clinical correlation is essential. Serum or plasma urea nitroge n measurement (mass/volume)Ordered By: Dr. Edward on 05-24-2022 Urea nitrogen [Mass/Vol] 45 mg/dL 7-18 [facility] Thin prep Papanicolaou smear with manual screeningOrdered By: Dr. Edward on 05-24-2022 Thin prep Papanicolaou smear with manual screening 6 - [facility] Absolute lymphocyte countOrd ered By: Dr. Anders on 04-13-2022 Lymphocytes Auto (Unsp spec) [#/Vol] 1.63 10*3/uL 0.83-4.51 [facility] Basophil percentageOrdered B y: Dr. Anders on 04-13-2022 Basophils/100 WBC (Bld) 0.5 % 0-1 [facility] Chloride [Moles/Vol] 100 mmol/L 98-107 [facility] Eosinophils/100 WBC (Bld) 5.2 % 0-5 [facility] Glucose [Mass/Vol] 133 mg/dL 74-106 [facility] Comment on above: Fasting Glucose resu lt greater than or equal to 126 mg/dL suggests DIABETES MELLITUS per A.D.A. criteria. Neutrophils (Bld) [#/Vol] 3.1 10*3/uL 2.0-7.7 [facility] Neutrophils/100 WBC (Bld) 56.0 % 47-70 [facility] Potassium [Moles/Vol] 3.9 mmol/L 3.5-5.1 [facility] Sodium [Moles/Vol] 143 mmol/L 136-145 [facility] WBC (Bld) [#/Vol] 5.6 10*3/uL 4.4-11.0 [facility] Blood erythrocytes count (nu mber/volume)Ordered By: Dr. Anders on 04-13-2022 RBC (Bld) [#/Vol] 3.65 10*6/uL 4.6-6.2 [facility] Blood hemoglobin measurement (mass/volume)Ordered By: Dr. Anders on 04-13-2022 Hemoglobin (Bld) [Mass/Vol] 11.0 g/dL 13.0-16.5 [facility] Blood lymphocytes/100 leukoc ytesOrdered By: Dr. Anders on 04-13-2022 Lymphocytes/100 WBC (Bld) 29.3 % 19-41 [facility] Blood monocytes/100 leukocyt esOrdered By: Dr. Anders on 04-13-2022 Monocytes/100 WBC (Bld) 8.8 % 0-10 [facility] Blood platelet mean volumeOr dered By: Dr. Anders on 04-13-2022 Platelet mean volume (Bld) [Entitic vol] 10.7 fL 6.2-12.0 [facility] Determination of erythrocyte mean corpuscular volume (MCV)Ordered By: Dr. Anders on 04-13-2022 MCV (RBC) [Entitic vol] 92.1 fL 80-94 [facility] Glucose Glucometer (dC) [M ass/Vol]Ordered By: Dr. Anders on 04-13-2022 Glucose [Mass/Vol] 184 mg/dL 74-106 [facility] Comment on above: MANAGEMENT OF PATIEN T CARE PER NURSING PROTOCOL Hematocrit Auto (Bld) [Volum e fraction]Ordered By: Dr. Anders on 04-13-2022 Hematocrit (Bld) [Volume fraction] 33.6 % 40-54 [facility] - Chemistry and C hemistry - challengeOrdered By: Dr. Anders on 04-13-2022 CO2 [Moles/Vol] 35.0 mmol/L 21.0-32.0 [facility] Urea nitrogen/Creatinine [Mass ratio] 24.5 mg/mg 10-20 [facility] - Hematology and Cell countsOrdered By: Dr. Anders on 04-13-2022 Erythrocyte distribution width (RBC) [Entitic vol] 44.9 fL 35.1-43.9 [facility] Erythrocyte distribution width (RBC) [Ratio] 13.2 % 11.6-14.6 [facility] Immature granulocytes/100 WBC (Bld) 0.200 % 0.0-0.9 [facility] Comment on above: IG% - Immature Granu locytes (promyelocytes, myelocytes and metamyelocytes) > 1% indicates that a LEFT SHIFT is Present. MCH (RBC) [Entitic mass] 30.1 pg 27.0-32.0 [facility] Nucleated RBC/100 WBC (Bld) [Ratio] 0 % 0-5 [facility] MCHC Auto (RBC) [Mass/Vol]Or dered By: Dr. Anders on 04-13-2022 MCHC (RBC) [Mass/Vol] 32.7 g/dL 32-36 [facility] No Panel InformationOrdered By: Dr. Anders on 04-13-2022 Estimated Creatinine Clearance Calc 32.81 ml/min [facility] Estimated GFR (MDRD) Amer 57 mL/min >60 [facility] Comment on above: GFR Calc Estimated GFR (MDRD) Non-Af Amer 47 mL/min >60 [facility] Comment on above: Non- GFR Calc Platelets bldOrdered By: Dr. Anders on 04-13-2022 Platelets (Bld) [#/Vol] 125 10*3/uL 150-450 [facility] Serum or plasma calcium elmira urement (mass/volume)Ordered By: Dr. Anders on 04-13-2022 Calcium [Mass/Vol] 9.9 mg/dL 8.5-10.1 [facility] Serum or plasma creatinine m easurement (mass/volume)Ordered By: Dr. Anders on 04-13-2022 Creatinine [Mass/Vol] 1.51 mg/dL 0.70-1.30 [facility] Comment on above: The validity of the calculated GFR & GFRAA in patients over 70 years has not been determined. Clinical correlation is essential. Serum or plasma urea nitroge n measurement (mass/volume)Ordered By: Dr. Anders on 04-13-2022 Urea nitrogen [Mass/Vol] 37 mg/dL 7-18 [facility] Thin prep Papanicolaou smear with manual screeningOrdered By: Dr. Anders on 04-13-2022 Thin prep Papanicolaou smear with manual screening 8 5-15 [facility] Basophil percentageOrdered B y: Dr. Anders on 04-12-2022 Bilirubin [Mass/Vol] 0.60 mg/dL 0.20-1.00 [facility] Comment on above: For patients on eltr ombopag therapy, use of Dimension Burt TBIL is not recommended. Protein [Mass/Vol] 6.6 g/dL 6.4-8.2 [facility] - Chemistry and C hemistry - challengeOrdered By: Dr. Anders on 04-12-2022 ALP [Catalytic activity/Vol] 77 U/L 45-117 [facility] ALT [Catalytic activity/Vol] 21 U/L 16-61 [facility] Globulin (S) [Mass/Vol] 3.6 g/dL 2.2-4.2 [facility] Serum or plasma albumin elmira urement (mass/volume)Ordered By: Dr. Anders on 04-12-2022 Albumin [Mass/Vol] 3.0 g/dL 3.2-5.0 [facility] Serum or plasma albumin/glob ulin mass ratioOrdered By: Dr. Anders on 04-12-2022 Albumin/Globulin [Mass ratio] 0.8 {ratio} 0.9-2.4 [facility] Thin prep Papanicolaou smear with manual screeningOrdered By: Dr. Anders on 04-12-2022 Thin prep Papanicolaou smear with manual screening 20 U/L 15-37 [facility] Absolute lymphocyte countOrd ered By: Dr. Yan on 04-11-2022 Lymphocytes Auto (Unsp spec) [#/Vol] 1.04 10*3/uL 0.83-4.51 [facility] Basophil percentageOrdered B y: Dr. Yan on 04-11-2022 Basophils/100 WBC (Bld) 0.4 % 0-1 [facility] Chloride [Moles/Vol] 110 mmol/L 98-107 [facility] Eosinophils/100 WBC (Bld) 4.3 % 0-5 [facility] Glucose [Mass/Vol] 160 mg/dL 74-106 [facility] Comment on above: Fasting Glucose resu lt greater than or equal to 126 mg/dL suggests DIABETES MELLITUS per A.D.A. criteria. Neutrophils (Bld) [#/Vol] 3.1 10*3/uL 2.0-7.7 [facility] Neutrophils/100 WBC (Bld) 66.7 % 47-70 [facility] Potassium [Moles/Vol] 4.7 mmol/L 3.5-5.1 [facility] Sodium [Moles/Vol] 145 mmol/L 136-145 [facility] WBC (Bld) [#/Vol] 4.6 10*3/uL 4.4-11.0 [facility] Blood erythrocytes count (nu mber/volume)Ordered By: Dr. Yan on 04-11-2022 RBC (Bld) [#/Vol] 3.31 10*6/uL 4.6-6.2 [facility] Blood hemoglobin measurement (mass/volume)Ordered By: Dr. Yan on 04-11-2022 Hemoglobin (Bld) [Mass/Vol] 9.8 g/dL 13.0-16.5 [facility] Blood lymphocytes/100 leukoc ytesOrdered By: Dr. Yan on 04-11-2022 Lymphocytes/100 WBC (Bld) 22.4 % 19-41 [facility] Blood monocytes/100 leukocyt esOrdered By: Dr. Yan on 04-11-2022 Monocytes/100 WBC (Bld) 6.0 % 0-10 [facility] Blood platelet mean volumeOr dered By: Dr. Yan on 04-11-2022 Platelet mean volume (Bld) [Entitic vol] 11.2 fL 6.2-12.0 [facility] Determination of erythrocyte mean corpuscular volume (MCV)Ordered By: Dr. Yan on 04-11-2022 MCV (RBC) [Entitic vol] 96.4 fL 80-94 [facility] Hematocrit Auto (Bld) [Volum e fraction]Ordered By: Dr. Yan on 04-11-2022 Hematocrit (Bld) [Volume fraction] 31.9 % 40-54 [facility] - Chemistry and C hemistry - challengeOrdered By: Dr. Yan on 04-11-2022 CO2 [Moles/Vol] 30.0 mmol/L 21.0-32.0 [facility] Natriuretic peptide B (Bld) [Mass/Vol] 311.3 pg/mL 0-100 [facility] Urea nitrogen/Creatinine [Mass ratio] 17.7 mg/mg 10-20 [facility] - Hematology and Cell countsOrdered By: Dr. Yan on 04-11-2022 Erythrocyte distribution width (RBC) [Entitic vol] 48.2 fL 35.1-43.9 [facility] Erythrocyte distribution width (RBC) [Ratio] 13.6 % 11.6-14.6 [facility] Immature granulocytes/100 WBC (Bld) 0.200 % 0.0-0.9 [facility] Comment on above: IG% - Immature Granu locytes (promyelocytes, myelocytes and metamyelocytes) > 1% indicates that a LEFT SHIFT is Present. MCH (RBC) [Entitic mass] 29.6 pg 27.0-32.0 [facility] Nucleated RBC/100 WBC (Bld) [Ratio] 0 % 0-5 [facility] MCHC Auto (RBC) [Mass/Vol]Or dered By: Dr. Yan on 04-11-2022 MCHC (RBC) [Mass/Vol] 30.7 g/dL 32-36 [facility] No Panel InformationOrdered By: Dr. Yan on 04-11-2022 Troponin I High Sensitivity 27 pg/mL 3.0-78.0 [facility] Comment on above: Please Note: New Arti t Units and Gender Specific Reference Ranges. For more information see Policy Stat Procedure [facility] High Sensitivity Troponin (TNIH) and attachments. Estimated Creatinine Clearance Calc 35.14 ml/min [facility] Estimated GFR (MDRD) Amer 62 mL/min >60 [facility] Comment on above: GFR Calc Estimated GFR (MDRD) Non-Af Amer 51 mL/min >60 [facility] Comment on above: Non- GFR Calc Platelets bldOrdered By: Dr. Yan on 04-11-2022 Platelets (Bld) [#/Vol] 108 10*3/uL 150-450 [facility] Serum or plasma calcium elmira urement (mass/volume)Ordered By: Dr. Yan on 04-11-2022 Calcium [Mass/Vol] 9.1 mg/dL 8.5-10.1 [facility] Serum or plasma creatinine m easurement (mass/volume)Ordered By: Dr. Yan on 04-11-2022 Creatinine [Mass/Vol] 1.41 mg/dL 0.70-1.30 [facility] Comment on above: The validity of the calculated GFR & GFRAA in patients over 70 years has not been determined. Clinical correlation is essential. Serum or plasma urea nitroge n measurement (mass/volume)Ordered By: Dr. Yan on 04-11-2022 Urea nitrogen [Mass/Vol] 25 mg/dL 7-18 [facility] Thin prep Papanicolaou smear with manual screeningOrdered By: Dr. Yan on 04-11-2022 Thin prep Papanicolaou smear with manual screening 5 5-15 [facility] LABORATORYOrdered By: SYSTEM SYSTEM on 03-22-2022 [...] Auto (Unsp spec) [#/Vol] 1.66 10*3/uL 0.83-4.51 [facility] Basophil percentageOrdered B y: Dr. Blunt on 03-16-2022 Basophils/100 WBC (Bld) 0.5 % 0-1 [facility] Chloride [Moles/Vol] 102 mmol/L 98-107 [facility] Eosinophils/100 WBC (Bld) 4.6 % 0-5 [facility] Glucose [Mass/Vol] 141 mg/dL 74-106 [facility] Comment on above: Fasting Glucose resu lt greater than or equal to 126 mg/dL suggests DIABETES MELLITUS per A.D.A. criteria. Neutrophils (Bld) [#/Vol] 3.8 10*3/uL 2.0-7.7 [facility] Neutrophils/100 WBC (Bld) 59.6 % 47-70 [facility] Potassium [Moles/Vol] 4.1 mmol/L 3.5-5.1 [facility] Sodium [Moles/Vol] 144 mmol/L 136-145 [facility] WBC (Bld) [#/Vol] 6.4 10*3/uL 4.4-11.0 [facility] Blood erythrocytes count (nu mber/volume)Ordered By: Dr. Blunt on 03-16-2022 RBC (Bld) [#/Vol] 3.44 10*6/uL 4.6-6.2 [facility] Blood hemoglobin measurement (mass/volume)Ordered By: Dr. Blunt on 03-16-2022 Hemoglobin (Bld) [Mass/Vol] 10.3 g/dL 13.0-16.5 [facility] Blood lymphocytes/100 leukoc ytesOrdered By: Dr. Blunt on 03-16-2022 Lymphocytes/100 WBC (Bld) 26.1 % 19-41 [facility] Blood monocytes/100 leukocyt esOrdered By: Dr. Blunt on 03-16-2022 Monocytes/100 WBC (Bld) 9.0 % 0-10 [facility] Blood platelet mean volumeOr dered By: Dr. Blunt on 03-16-2022 Platelet mean volume (Bld) [Entitic vol] 11.8 fL 6.2-12.0 [facility] Determination of erythrocyte mean corpuscular volume (MCV)Ordered By: Dr. Blunt on 03-16-2022 MCV (RBC) [Entitic vol] 95.6 fL 80-94 [facility] Glucose Glucometer (BldC) [M ass/Vol]Ordered By: Dr. Anders on 03-16-2022 Glucose [Mass/Vol] 137 mg/dL 74-106 [facility] Comment on above: MANAGEMENT OF PATIEN T CARE PER NURSING PROTOCOL Hematocrit Auto (Bld) [Volum e fraction]Ordered By: Dr. Blunt on 03-16-2022 Hematocrit (Bld) [Volume fraction] 32.9 % 40-54 [facility] INR in Blood by Coagulation assayOrdered By: Dr. Blunt on 03-16-2022 INR Coag (Bld) [Relative time] 1.2 {INR} [facility] - Chemistry and C hemistry - challengeOrdered By: Dr. Blunt on 03-16-2022 CO2 [Moles/Vol] 35.0 mmol/L 21.0-32.0 [facility] Urea nitrogen/Creatinine [Mass ratio] 34.1 mg/mg 10-20 [facility] - CoagulationOrde red By: Dr. Blunt on 03-16-2022 aPTT Coag (Bld) [Time] 40.9 s 24.1-36.2 [facility] PT Coag (PPP) [Time] 14.5 s 11.7-14.9 [facility] - Hematology and Cell countsOrdered By: Dr. Blunt on 03-16-2022 Erythrocyte distribution width (RBC) [Entitic vol] 50.6 fL 35.1-43.9 [facility] Erythrocyte distribution width (RBC) [Ratio] 14.6 % 11.6-14.6 [facility] Immature granulocytes/100 WBC (Bld) 0.200 % 0.0-0.9 [facility] Comment on above: IG% - Immature Granu locytes (promyelocytes, myelocytes and metamyelocytes) > 1% indicates that a LEFT SHIFT is Present. MCH (RBC) [Entitic mass] 29.9 pg 27.0-32.0 [facility] Nucleated RBC/100 WBC (Bld) [Ratio] 0.3 % 0-5 [facility] MCHC Auto (RBC) [Mass/Vol]Or dered By: Dr. Blunt on 03-16-2022 MCHC (RBC) [Mass/Vol] 31.3 g/dL 32-36 [facility] No Panel InformationOrdered By: Dr. Blunt on 03-16-2022 Estimated Creatinine Clearance Calc 24.17 ml/min [facility] Estimated GFR (MDRD) Amer 40 mL/min >60 [facility] Comment on above: GFR Calc Estimated GFR (MDRD) Non-Af Amer 33 mL/min >60 [facility] Comment on above: Non- GFR Calc Platelets bldOrdered By: Dr. Blunt on 03-16-2022 Platelets (Bld) [#/Vol] 116 10*3/uL 150-450 [facility] Serum or plasma calcium elmira urement (mass/volume)Ordered By: Dr. Blunt on 03-16-2022 Calcium [Mass/Vol] 9.0 mg/dL 8.5-10.1 [facility] Serum or plasma creatinine m easurement (mass/volume)Ordered By: Dr. Blunt on 03-16-2022 Creatinine [Mass/Vol] 2.05 mg/dL 0.70-1.30 [facility] Comment on above: The validity of the calculated GFR & GFRAA in patients over 70 years has not been determined. Clinical correlation is essential. Serum or plasma urea nitroge n measurement (mass/volume)Ordered By: Dr. Blunt on 03-16-2022 Urea nitrogen [Mass/Vol] 70 mg/dL 7-18 [facility] Thin prep Papanicolaou smear with manual screeningOrdered By: Dr. Blunt on 03-16-2022 Thin prep Papanicolaou smear with manual screening 7 5-15 [facility] Influenza virus A and B and SARS-CoV-2 (COVID-19) Ag panel - Upper respiratory specimOrdered By: Dr. Lester on 03-12-2022 SARS-CoV-2 (COVID-19) RNA JOSH+probe Ql (Resp) [facility] - Chemistry and C hemistry - challengeOrdered By: Dr. Lester on 03-12-2022 Natriuretic peptide B (Bld) [Mass/Vol] 285.7 pg/mL 0-100 [facility] No Panel InformationOrdered By: Dr. Rodriguez on 03-12-2022 Troponin I High Sensitivity 640 pg/mL 3.0-78.0 [facility] Comment on above: Critical Result(s) C alled at: 10:23:02 03/12/2022 by: Didier Xiao to [place]. Results read back by same. Please Note: New Test Units and Gender Specific Reference Ranges. For more information see Policy Stat Procedure [facility] High Sensitivity Troponin (TNIH) and attachments. LABORATORYOrdered [...] 12-16-2021 SARS-CoV-2 (COVID-19) Ag IA.rapid Ql (Resp) [facility] Glucose Glucometer (BldC) [M ass/Vol]Ordered By: Dr. Alcantara on 12-16-2021 Glucose [Mass/Vol] 207 mg/dL 74-106 [facility] Comment on above: MANAGEMENT OF PATIEN T CARE PER NURSING PROTOCOL Absolute lymphocyte countOrd ered By: Dr. Alcantara on 12-15-2021 Lymphocytes Auto (Unsp spec) [#/Vol] 1.50 10*3/uL 0.83-4.51 [facility] Basophil percentageOrdered B y: Dr. Alcantara on 12-15-2021 Basophils/100 WBC (Bld) 0.1 % 0-1 [facility] Chloride [Moles/Vol] 108 mmol/L 98-107 [facility] Eosinophils/100 WBC (Bld) 2.9 % 0-5 [facility] Glucose [Mass/Vol] 170 mg/dL 74-106 [facility] Comment on above: Fasting Glucose resu lt greater than or equal to 126 mg/dL suggests DIABETES MELLITUS per A.D.A. criteria. Neutrophils (Bld) [#/Vol] 6.5 10*3/uL 2.0-7.7 [facility] Neutrophils/100 WBC (Bld) 71.9 % 47-70 [facility] Potassium [Moles/Vol] 4.2 mmol/L 3.5-5.1 [facility] Sodium [Moles/Vol] 140 mmol/L 136-145 [facility] WBC (Bld) [#/Vol] 9.0 10*3/uL 4.4-11.0 [facility] Blood erythrocytes count (nu mber/volume)Ordered By: Dr. Alcantara on 12-15-2021 RBC (Bld) [#/Vol] 3.61 10*6/uL 4.6-6.2 [facility] Blood hemoglobin measurement (mass/volume)Ordered By: Dr. Alcantara on 12-15-2021 Hemoglobin (Bld) [Mass/Vol] 11.3 g/dL 13.0-16.5 [facility] Blood lymphocytes/100 leukoc ytesOrdered By: Dr. Alcantara on 12-15-2021 Lymphocytes/100 WBC (Bld) 16.7 % 19-41 [facility] Blood monocytes/100 leukocyt esOrdered By: Dr. Alcantara on 12-15-2021 Monocytes/100 WBC (Bld) 6.7 % 0-10 [facility] Blood platelet mean volumeOr dered By: Dr. Alcantara on 12-15-2021 Platelet mean volume (Bld) [Entitic vol] 10.3 fL 6.2-12.0 [facility] Determination of erythrocyte mean corpuscular volume (MCV)Ordered By: Dr. Alcantara on 12-15-2021 MCV (RBC) [Entitic vol] 92.5 fL 80-94 [facility] Hematocrit Auto (Bld) [Volum e fraction]Ordered By: Dr. Alcantara on 12-15-2021 Hematocrit (Bld) [Volume fraction] 33.4 % 40-54 [facility] - Chemistry and C hemistry - challengeOrdered By: Dr. Alcantara on 12-15-2021 CO2 [Moles/Vol] 27.0 mmol/L 21.0-32.0 [facility] Natriuretic peptide B (Bld) [Mass/Vol] 116.1 pg/mL 0-100 [facility] Urea nitrogen/Creatinine [Mass ratio] 44.6 mg/mg 10-20 [facility] - Hematology and Cell countsOrdered By: Dr. Alcantara on 12-15-2021 Erythrocyte distribution width (RBC) [Entitic vol] 43.8 fL 35.1-43.9 [facility] Erythrocyte distribution width (RBC) [Ratio] 12.9 % 11.6-14.6 [facility] Immature granulocytes/100 WBC (Bld) 1.700 % 0.0-0.9 [facility] Comment on above: IG% - Immature Granu locytes (promyelocytes, myelocytes and metamyelocytes) > 1% indicates that a LEFT SHIFT is Present. MCH (RBC) [Entitic mass] 31.3 pg 27.0-32.0 [facility] Nucleated RBC/100 WBC (Bld) [Ratio] 0 % 0-5 [facility] MCHC Auto (RBC) [Mass/Vol]Or dered By: Dr. Alcantara on 12-15-2021 MCHC (RBC) [Mass/Vol] 33.8 g/dL 32-36 [facility] No Panel InformationOrdered By: Dr. Alcantara on 12-15-2021 Estimated Creatinine Clearance Calc 38.11 ml/min [facility] Estimated GFR (MDRD) Amer 68 mL/min >60 [facility] Comment on above: GFR Calc Estimated GFR (MDRD) Non-Af Amer 56 mL/min >60 [facility] Comment on above: Non- GFR Calc Thyroid Stimulating Hormone (TSH) 3.74 uIU/mL 0.358-3.74 [facility] Platelets bldOrdered By: Dr. Alcantara on 12-15-2021 Platelets (Bld) [#/Vol] 155 10*3/uL 150-450 [facility] Serum or plasma calcium lemira urement (mass/volume)Ordered By: Dr. Alcantara on 12-15-2021 Calcium [Mass/Vol] 8.8 mg/dL 8.5-10.1 [facility] Serum or plasma creatinine m easurement (mass/volume)Ordered By: Dr. Alcantara on 12-15-2021 Creatinine [Mass/Vol] 1.30 mg/dL 0.70-1.30 [facility] Comment on above: The validity of the calculated GFR & GFRAA in patients over 70 years has not been determined. Clinical correlation is essential. Serum or plasma urea nitroge n measurement (mass/volume)Ordered By: Dr. Alcantara on 12-15-2021 Urea nitrogen [Mass/Vol] 58 mg/dL 7-18 [facility] Thin prep Papanicolaou smear with manual screeningOrdered By: Dr. Alcantara on 12-15-2021 Thin prep Papanicolaou smear with manual screening 5 5-15 [facility] Basophil percentageOrdered B y: Dr. Angel on 12-14-2021 Bilirubin [Mass/Vol] 0.40 mg/dL 0.20-1.00 [facility] Comment on above: For patients on eltr ombopag therapy, use of Dimension Burt TBIL is not recommended. Protein [Mass/Vol] 6.2 g/dL 6.4-8.2 [facility] - Chemistry and C hemistry - challengeOrdered By: Dr. Angel on 12-14-2021 ALP [Catalytic activity/Vol] 76 U/L 45-117 [facility] ALT [Catalytic activity/Vol] 43 U/L 16-61 [facility] Globulin (S) [Mass/Vol] 4.3 g/dL 2.2-4.2 [facility] Serum or plasma albumin elmira urement (mass/volume)Ordered By: Dr. Angel on 12-14-2021 Albumin [Mass/Vol] 1.9 g/dL 3.2-5.0 [facility] Serum or plasma albumin/glob ulin mass ratioOrdered By: Dr. Angel on 12-14-2021 Albumin/Globulin [Mass ratio] 0.4 {ratio} 0.9-2.4 [facility] Thin prep Papanicolaou smear with manual screeningOrdered By: Dr. Angel on 12-14-2021 Thin prep Papanicolaou smear with manual screening 34 U/L 15-37 [facility] Comment on above: Slight Hemolysis, Re sult may be falsely increased. Basophil percentageOrdered B y: Dr. Villanueva on 12-13-2021 Basophil percentage 0 SEEN /hpf 0-5 [facility] Bilirubin Test strip Ql (U)O rdered By: Dr. Villanueva on 12-13-2021 Bilirubin Ql (U) Negative Negative [facility] Erythrocyte sedimentation ra teOrdered By: Dr. Villanueva on 12-13-2021 ESR (Bld) [Velocity] 101 mm/h 0-20 [facility] INR in Blood by Coagulation assayOrdered By: Dr. Angel on 12-13-2021 INR Coag (Bld) [Relative time] 1.2 {INR} [facility] Ketones Test strip Ql (U)Ord ered By: Dr. Villanueva on 12-13-2021 Ketones Ql (U) Negative Negative [facility] - CoagulationOrde red By: Dr. Angel on 12-13-2021 aPTT Coag (Bld) [Time] 26.2 s 24.1-36.2 [facility] PT Coag (PPP) [Time] 14.7 s 11.7-14.9 [facility] Mucus LM Ql (Urine sed)Order ed By: Dr. Villanueva on 12-13-2021 Mucus Ql (Urine sed) 0 SEEN /hpf [facility] Nitrite Test strip Ql (U)Ord ered By: Dr. Villanueva on 12-13-2021 Nitrite Ql (U) Negative Negative [facility] Protein Test strip Ql (U)Ord ered By: Dr. Villanueva on 12-13-2021 Protein Ql (U) 100 mg/dl Negative [facility] Serum or plasma C reactive p rotein measurement (mass/volume)Ordered By: Dr. Villanueva on 12-13-2021 CRP [Mass/Vol] 87.40 mg/L 0.0-3.0 [facility] Comment on above: C-Reactive Protein ( CRP) provides useful information for thediagnosis, therapy and monitoring of inflammatory processesand associated diseases. For the evaluation of Relative Riskfor Cardiovascular Disease, a High Sensitivity CRP (HSCRP)should be ordered. Serum or plasma uric acid me asurement (mass/volume)Ordered By: Dr. Villanueva on 12-13-2021 Urate [Mass/Vol] 9.4 mg/dL 3.5-7.2 [facility] Comment on above: The drugs N-Acetylcy steine and Metamizole may falsely depress this assay. Serum procalcitonin measurem entOrdered By: Dr. Angel on 12-13-2021 Procalcitonin [Mass/Vol] 0.37 ng/mL 0.00-0.09 [facility] Comment on above: A procalcitonin (PCT [...] Ql (Urine sed) 0 SEEN /hpf 0-5 [facility] Urine blood detectionOrdered By: Dr. Villanueva on 12-13-2021 RBC Ql (U) 50 /ul Negative [facility] RBC Ql (U) 0-5 SEEN /hpf 0-5 [facility] Urine clarityOrdered By: Dr. Villanueva on 12-13-2021 Clarity (U) Clear Clear [facility] Urine color determinationOrd ered By: Dr. Villanueva on 12-13-2021 Color (U) Yellow Yellow [facility] Urine glucose detectionOrder ed By: Dr. Villanueva on 12-13-2021 Glucose Ql (U) Normal mg/dl Normal [facility] Urine leukocyte esterase det ection by dipstickOrdered By: Dr. Villanueva on 12-13-2021 Leukocyte esterase Test strip Ql (U) Negative Negative [facility] Urine pHOrdered By: Dr. Villanueva o n 12-13-2021 pH (U) 6.0 [pH] 5.0 - 8.0 [facility] Urine sediment bacteria coun t by microscopy (number/high power field)Ordered By: Dr. Villanueva on 12-13-2021 Bacteria LM.HPF (Urine sed) [#/Area] 0 /[HPF] None Seen [facility] Urine specific gravity measu rementOrdered By: Dr. Villanueva on 12-13-2021 Specific gravity (U) [Rel density] 1.015 1.002-1.030 [facility] Urobilinogen Auto test strip Ql (U)Ordered By: Dr. Villanueva on 12-13-2021 Urobilinogen Ql (U) Normal mg/dl Normal [facility] Absolute lymphocyte counton 12-08-2021 Lymphocytes Auto (Unsp spec) [#/Vol] 0.86 10*3/uL 0.83-4.51 [facility] Work Phone: Basophil percentageon 2021 Basophils/100 WBC (Bld) 0.2 % 0-1 [facility] Work Phone: Bilirubin [Mass/Vol] 1.30 mg/dL 0.20-1.00 [facility] Work Phone: Comment on above: For patients on eltr ombopag therapy, use of Dimension Burt TBIL is not recommended. Chloride [Moles/Vol] 105 mmol/L 98-107 [facility] Work Phone: Eosinophils/100 WBC (Bld) 0.2 % 0-5 [facility] Work Phone: Glucose [Mass/Vol] 205 mg/dL 74-106 [facility] Work Phone: Comment on above: Glucose result great er than or equal to 200 mg/dLsuggests DIABETES MELLITUS per A.D.A. criteria. Neutrophils (Bld) [#/Vol] 10.0 10*3/uL 2.0-7.7 [facility] Work Phone: Neutrophils/100 WBC (Bld) 84.4 % 47-70 [facility] Work Phone: Potassium [Moles/Vol] 4.3 mmol/L 3.5-5.1 [facility] Work Phone: Protein [Mass/Vol] 7.1 g/dL 6.4-8.2 [facility] Work Phone: Sodium [Moles/Vol] 139 mmol/L 136-145 [facility] Work Phone: WBC (Bld) [#/Vol] 11.9 10*3/uL 4.4-11.0 [facility] Work Phone: Blood erythrocytes count (nu mber/volume)on 12-08-2021 RBC (Bld) [#/Vol] 4.36 10*6/uL 4.6-6.2 [facility] Work Phone: Blood hemoglobin measurement (mass/volume)on 12-08-2021 Hemoglobin (Bld) [Mass/Vol] 13.2 g/dL 13.0-16.5 [facility] Work Phone: Blood lymphocytes/100 leukoc yteson 12-08-2021 Lymphocytes/100 WBC (Bld) 7.3 % 19-41 [facility] Work Phone: Blood monocytes/100 leukocyt eson 12-08-2021 Monocytes/100 WBC (Bld) 7.3 % 0-10 [facility] Work Phone: Blood platelet mean volumeon 12-08-2021 Platelet mean volume (Bld) [Entitic vol] 10.5 fL 6.2-12.0 [facility] Work Phone: Determination of erythrocyte mean corpuscular volume (MCV)on 12-08-2021 MCV (RBC) [Entitic vol] 92.2 fL 80-94 [facility] Work Phone: Erythrocyte sedimentation ra donnell 12-08-2021 ESR (Bld) [Velocity] 31 mm/h 0-20 [facility] Work Phone: Hematocrit Auto (Bld) [Volum e fraction]on 12-08-2021 Hematocrit (Bld) [Volume fraction] 40.2 % 40-54 [facility] Work Phone: Laboratory - Chemistry and C hemistry - challengeon 12-08-2021 ALP [Catalytic activity/Vol] 70 U/L 45-117 [facility] Work Phone: ALT [Catalytic activity/Vol] 16 U/L 16-61 [facility] Work Phone: CO2 [Moles/Vol] 27.0 mmol/L 21.0-32.0 [facility] Work Phone: Globulin (S) [Mass/Vol] 4.4 g/dL 2.2-4.2 [facility] Work Phone: [phone] Urea nitrogen/Creatinine [Mass ratio] 22.0 mg/mg 10-20 [facility] Work Phone: [phone] Laboratory - Hematology and Cell countson 12-08-2021 Erythrocyte distribution width (RBC) [Entitic vol] 43.1 fL 35.1-43.9 [facility] Work Phone: [phone] Erythrocyte distribution width (RBC) [Ratio] 12.7 % 11.6-14.6 [facility] Work Phone: [phone] Immature granulocytes/100 WBC (Bld) 0.600 % 0.0-0.9 [facility] Work Phone: [phone] Comment on above: IG% - Immature Granu locytes (promyelocytes, myelocytes and metamyelocytes) > 1% indicates that a LEFT SHIFT is Present. MCH (RBC) [Entitic mass] 30.3 pg 27.0-32.0 [facility] Work Phone: [phone] Nucleated RBC/100 WBC (Bld) [Ratio] 0 % 0-5 [facility] Work Phone: [phone] MCHC Auto (RBC) [Mass/Vol]on 12-08-2021 MCHC (RBC) [Mass/Vol] 32.8 g/dL 32-36 [facility] Work Phone: [phone] No Panel Informationon 12-08 Estimated Creatinine Clearance Calc 31.16 ml/min [facility] Work Phone: [phone] Estimated GFR (MDRD) Amer 54 mL/min >60 [facility] Work Phone: [phone] Comment on above: GFR Calc Estimated GFR (MDRD) Non-Af Amer 45 mL/min >60 [facility] Work Phone: [phone] Comment on above: Non- GFR Calc Platelets bldon 12-08-2021 Platelets (Bld) [#/Vol] 112 10*3/uL 150-450 [facility] Work Phone: [phone] Serum or plasma C reactive p rotein measurement (mass/volume)on 12-08-2021 CRP [Mass/Vol] 108.00 mg/L 0.0-3.0 [facility] Work Phone: Comment on above: C-Reactive Protein ( CRP) provides useful information for thediagnosis, therapy and monitoring of inflammatory processesand associated diseases. For the evaluation of Relative Riskfor Cardiovascular Disease, a High Sensitivity CRP (HSCRP)should be ordered. Serum or plasma albumin elmira urement (mass/volume)on 12-08-2021 Albumin [Mass/Vol] 2.7 g/dL 3.2-5.0 [facility] Work Phone: Serum or plasma albumin/glob ulin mass ratioon 12-08-2021 Albumin/Globulin [Mass ratio] 0.6 {ratio} 0.9-2.4 [facility] Work Phone: Serum or plasma calcium elmira urement (mass/volume)on 12-08-2021 Calcium [Mass/Vol] 9.3 mg/dL 8.5-10.1 [facility] Work Phone: Serum or plasma creatinine m easurement (mass/volume)on 12-08-2021 Creatinine [Mass/Vol] 1.59 mg/dL 0.70-1.30 [facility] Work Phone: Comment on above: The validity of the calculated GFR & GFRAA in patients over 70 years has not been determined. Clinical correlation is essential. Serum or plasma urea nitroge n measurement (mass/volume)on 12-08-2021 Urea nitrogen [Mass/Vol] 35 mg/dL 7-18 [facility] Work Phone: Serum or plasma uric acid me asurement (mass/volume)on 12-08-2021 Urate [Mass/Vol] 8.5 mg/dL 3.5-7.2 [facility] Work Phone: Comment on above: The drugs N-Acetylcy steine and Metamizole may falsely depress this assay. Thin prep Papanicolaou smear with manual screeningon 12-08-2021 Thin prep Papanicolaou smear with manual screening 14 U/L 15-37 [facility] Work Phone: Thin prep Papanicolaou smear with manual screening 7 07-24 [facility] Work Phone: LABORATORYOrdered By: Abigail Bailey [...] 11-28-2018 TSH Qn 3.31 mcIU/mL Normal 0.36-3.74 [facility] Comment on above: Performed By: #### T #### [facility] [address] [place] [address] COVID-19 virus antigen assay SARS-CoV-2 (COVID-19) Ag IA.rapid Ql (Resp) [facility] Work Phone: Influenza virus A and B and SARS-CoV-2 (COVID-19) Ag panel - Upper respiratory specim SARS-CoV-2 (COVID-19) RNA JOSH+probe Ql (Resp) [facility] Work Phone: Vital Signs Date Time Vital Sign Value Performing Clinician Facility 06-25-2024 14:14-0400 Body temperature 98 [degF] Dr. Yuridia Hernandez MD Work Phone: [facility] 06-25-2024 14:14-0400 Diastolic blood pressure 67 mm[Hg] Dr. Yuridia Hernandez MD Work Phone: [facility] 06-25-2024 14:14-0400 Heart rate 80 /min Dr. Yuridia Hernandez MD Work Phone: [facility] 06-25-2024 14:14-0400 Inhaled oxygen flow rate 1.5 L/min Dr. Yuridia Hernandez MD Work Phone: [facility] 06-25-2024 14:14-0400 Respiratory rate 16 /min Dr. Yuridia Hernandez MD Work Phone: [facility] 06-25-2024 14:14-0400 SaO2% (BldA) [Mass fraction] 98 % Dr. Yuridia Hernandez MD Work Phone: [facility] 06-25-2024 14:14-0400 Systolic blood pressure 106 mm[Hg] Dr. Yuridia Hernandez MD Work Phone: 1(960)071-943013 [place] [address] 06-24-2024 14:11-0400 Body height 165.[address] Yuridia Hernandez MD Work Phone: 0([phone])950-146413 [place] [address] 06-24-2024 14:11-0400 Body weight 82.[address] Yuridia Hernandez MD Work Phone: 3(709)586-067213 [place] [address] 06-23-2024 18:43-0400 Body mass index (BMI) [Ratio] 30.1 kg/m2 Dr. Yuridia Hernandez MD Work Phone: [phone])081-101013 [place] [address] 06-23-2024 18:00-0400 Diastolic blood pressure 82 mm[Hg] Dr. Yuridia Hernandez MD Work Phone: 5(049)167-392213 [place] [address] 06-23-2024 18:00-0400 Heart rate 104 /min Dr. Yuridia Hernandez MD Work Phone: 6(178)448-291113 [place] [address] 06-23-2024 18:00-0400 Respiratory rate 27 /min Dr. Yuridia Hernandez MD Work Phone: 8(449)193-140213 [place] [address] 06-23-2024 18:00-0400 SaO2% (BldA) [Mass fraction] 98 % Dr. Yuridia Hernandez MD Work Phone: 9(249)866-339213 [place] [address] 06-23-2024 18:00-0400 Systolic blood pressure 109 mm[Hg] Dr. Yuridia Hernandez MD Work Phone: 8(335)111-098813 [place] [address] 06-23-2024 17:33-0400 Body temperature 98 [degF] Dr. Yuridia Hernandez MD Work Phone: 6(590)136-238013 [place] [address] 06-23-2024 16:00-0400 Inhaled oxygen flow rate 2 L/min Dr. Yuridia Hernandez MD Work Phone: 9(609)465-909013 [place] [address] 06-23-2024 14:28-0400 Body height 165.[address] Yuridia Hernandez MD Work Phone: 0(714)226-922813 [place] [address] 06-23-2024 14:28-0400 Body mass index (BMI) [Ratio] 30.2 kg/m2 Dr. Yuridia Hernandez MD Work Phone: [facility] 06-23-2024 14:28-0400 Body weight 82.[address] Yuridia Hernandez MD Work Phone: [facility] 05-28-2024 15:44-0400 Body mass index (BMI) [Ratio] 30.1 kg/m2 Dr. Yuridia Hernandez MD Work Phone: 0(785)275-121527 [place] [address] 05-28-2024 15:44-0400 Body temperature 98.6 [degF] Dr. Yuridia Hernandez MD Work Phone: 5(763)056-663027 [place] [address] 05-28-2024 15:44-0400 Body weight 82.[address] Yuridia Hernandez MD Work Phone: 5(202)755-700527 [place] [address] 05-28-2024 15:44-0400 Diastolic blood pressure 54 mm[Hg] Dr. Yuridia Hernandez MD Work Phone: 5(970)196-984527 [place] [address] 05-28-2024 15:44-0400 Heart rate 95 /min Dr. Yuridia Hernandez MD Work Phone: 3(722)402-664527 [place] [address] 05-28-2024 15:44-0400 Inhaled oxygen flow rate 3 L/min Dr. Yuridia Hernandez MD Work Phone: 6(532)903-205027 [place] [address] 05-28-2024 15:44-0400 Respiratory rate 20 /min Dr. Yuridia Hernandez MD Work Phone: [facility] 05-28-2024 15:44-0400 SaO2% (BldA) [Mass fraction] 93 % Dr. Yuridia Hernandez MD Work Phone: 8(558)230-085727 [place] [address] 05-28-2024 15:44-0400 Systolic blood pressure 139 mm[Hg] Dr. Yuridia Hernandez MD Work Phone: 7(808)118-230227 [place] [address] 04-02-2024 15:56-0500 Body temperature 98 [degF] Dr. Yuridia Hernandez MD Work Phone: 8(594)518-818327 [place] [address] 04-02-2024 15:56-0500 Diastolic blood pressure 62 mm[Hg] Dr. Yuridia Hernandez MD Work Phone: [facility] 04-02-2024 15:56-0500 Heart rate 98 /min Dr. Yuridia Hernandez MD Work Phone: [facility] 04-02-2024 15:56-0500 Inhaled oxygen flow rate 2 L/min Dr. Yuridia Hernandez MD Work Phone: 5(686)524-630027 [place] [address] 04-02-2024 15:56-0500 Respiratory rate 18 /min Dr. Yuridia Hernandez MD Work Phone: 3(230)065-797513 [place] [address] 04-02-2024 15:56-0500 SaO2% (BldA) [Mass fraction] 95 % Dr. Yuridia Hernandez MD Work Phone: 7(904)368-223962 [address] 04-02-2024 15:56-0500 Systolic blood pressure 124 mm[Hg] Dr. Yuridia Hernandez MD Work Phone: 1(774)061-554013 [place] [address] 03-24-2024 15:39-0500 Body mass index (BMI) [Ratio] 30.3 kg/m2 Dr. Yuridia Hernandez MD Work Phone: 7(452)008-735713 [place] [address] 03-24-2024 15:39-0500 Body weight 82.[address] Yuridia Hernandez MD Work Phone: 7(401)733-706627 [place] [address] 03-24-2024 15:34-0500 Body temperature 98.8 [degF] Dr. Yuridia Hernandez MD Work Phone: 2(976)452-499527 [place] [address] 03-24-2024 15:34-0500 Diastolic blood pressure 55 mm[Hg] Dr. Yuridia Hernandez MD Work Phone: 6(545)511-030227 [place] [address] 03-24-2024 15:34-0500 Heart rate 88 /min Dr. Yuridia Hernandez MD Work Phone: [facility] 03-24-2024 15:34-0500 Inhaled oxygen flow rate 3 L/min Dr. Yuridia Hernandez MD Work Phone: 0(266)453-788727 [place] [address] 03-24-2024 15:34-0500 Respiratory rate 18 /min Dr. Yuridia Hernandez MD Work Phone: [facility] 03-24-2024 15:34-0500 SaO2% (BldA) [Mass fraction] 93 % Dr. Yuridia Hernandez MD Work Phone: [facility] 03-24-2024 15:34-0500 Systolic blood pressure 124 mm[Hg] Dr. Yuridia Hernandez MD Work Phone: 5(171)953-101927 [place] [address] 03-02-2024 09:23-0500 Heart rate 96 /min Dr. Yuridia Hernandez MD Work Phone: 9(304)794-620162 [address] 03-02-2024 09:22-0500 Body temperature 97.7 [degF] Dr. Yuridia Hernandez MD Work Phone: 0(614)717-569762 [address] 03-02-2024 09:22-0500 Diastolic blood pressure 56 mm[Hg] Dr. Yuridia Hernandez MD Work Phone: 2(633)577-417962 [address] 03-02-2024 09:22-0500 Inhaled oxygen flow rate 2 L/min Dr. Yuridia Hernandez MD Work Phone: 7(876)653-062527 [place] [address] 03-02-2024 09:22-0500 Respiratory rate 20 /min Dr. Yuridia Hernandez MD Work Phone: 0(828)428-529027 [place] [address] 03-02-2024 09:22-0500 SaO2% (BldA) [Mass fraction] 98 % Dr. Yuridia Hernandez MD Work Phone: 1(812)182-756427 [place] [address] 03-02-2024 09:22-0500 Systolic blood pressure 114 mm[Hg] Dr. Yuridia Hernandez MD Work Phone: 7(756)816-657062 [address] 03-02-2024 04:41-0500 Body mass index (BMI) [Ratio] 30.6 kg/m2 Dr. Yuridia Hernandez MD Work Phone: [facility] 03-02-2024 04:41-0500 Body weight 83.[address] Yuridia Hernandez MD Work Phone: 1(777)672-798762 [address] 06-27-2023 16:25-0400 Diastolic blood pressure 51 mm[Hg] Dr. Talya Nichols Work Phone: [facility] 06-27-2023 16:25-0400 Heart rate 87 /min Dr. Talya Nichols Work Phone: [facility] 06-27-2023 16:25-0400 Inhaled oxygen flow rate 3 L/min Dr. Talya Nichols Work Phone: [facility] 06-27-2023 16:25-0400 Respiratory rate 24 /min Dr. Talya Nichols Work Phone: [facility] 06-27-2023 16:25-0400 SaO2% (BldA) [Mass fraction] 98 % Dr. Talya Nichols Work Phone: [facility] 06-27-2023 16:25-0400 Systolic blood pressure 148 mm[Hg] Dr. Talya Nichols Work Phone: [facility] 06-27-2023 15:34-0400 Body temperature 97.5 [degF] Dr. Talya Nichols Work Phone: [facility] 06-27-2023 13:07-0400 Body height 165.[address] Talya Nichols Work Phone: [facility] 06-11-2023 12:11-0400 Heart rate 89 /min AHMET CLARK MD [facility] 06-11-2023 12:11-0400 Respiratory rate 24 /min AHMET CLARK MD [facility] 06-11-2023 08:32-0400 Heart rate 75 /min AHMET CLARK MD [facility] 06-11-2023 06:40-0400 Heart rate 73 /min AHMET CLARK MD [facility] 06-11-2023 06:40-0400 Respiratory rate 20 /min AHMET CLARK MD [facility] 06-11-2023 06:33-0400 Blood Pressure Cuff Size AHMET CLARK MD [facility] 06-11-2023 06:33-0400 Blood Pressure Location AHMET CLARK MD [facility] 06-11-2023 06:33-0400 Blood Pressure Method AHMET CLARK MD [facility] 06-11-2023 06:33-0400 Body temperature 97.34 [degF] AHMET CLARK MD [facility] 06-11-2023 06:33-0400 Diastolic Blood Pressure Non-Invasive 57 mm[Hg] AHMET CLARK MD [facility] 06-11-2023 06:33-0400 Heart rate 75 /min AHMET CLARK MD [facility] 06-11-2023 06:33-0400 Reason For Taking VItal Signs AHMET CLARK MD [facility] 06-11-2023 06:33-0400 Respiratory rate 20 /min AHMET CLARK MD [facility] 06-11-2023 06:33-0400 Systolic Blood Pressure Non-Invasive 128 mm[Hg] AHMET CLARK MD [facility] 06-10-2023 21:32-0400 Blood Pressure Cuff Size AHMET CLARK MD [facility] 06-10-2023 21:32-0400 Blood Pressure Location AHMET CLARK MD [facility] 06-10-2023 21:32-0400 Blood Pressure Method AHMET CLARK MD [facility] 06-10-2023 21:32-0400 Body temperature 98.06 [degF] AHMET CLARK MD [facility] 06-10-2023 21:32-0400 Diastolic Blood Pressure Non-Invasive 61 mm[Hg] AHMET CLARK MD [facility] 06-10-2023 21:32-0400 Heart rate 73 /min AHMET CLARK MD [facility] 06-10-2023 21:32-0400 Systolic Blood Pressure Non-Invasive 136 mm[Hg] AHMET CLARK MD [facility] 06-10-2023 14:28-0400 Blood Pressure Cuff Size AHMET CLARK MD [facility] 06-10-2023 14:28-0400 Blood Pressure Location AHMET CLARK MD [facility] 06-10-2023 14:28-0400 Blood Pressure Method AHMET CLARK MD [facility] 06-10-2023 14:28-0400 Body temperature 97.34 [degF] AHMET CLARK MD [facility] 06-10-2023 14:28-0400 Diastolic Blood Pressure Non-Invasive 46 mm[Hg] AHMET CLARK MD [facility] 06-10-2023 14:28-0400 Reason For Taking VItal Signs AHMET CLARK MD [facility] 06-10-2023 14:28-0400 Systolic Blood Pressure Non-Invasive 140 mm[Hg] AHMET CLARK MD [facility] 06-10-2023 08:13-0400 Heart rate 68 /min AHMET CLARK MD [facility] 06-10-2023 08:13-0400 Reason For Taking VItal Signs AHMET CLARK MD [facility] 06-09-2023 18:38-0400 Heart rate 83 /min AHMET CLARK MD [facility] 06-09-2023 18:00-0400 Heart rate 89 /min AHMET CLARK MD [facility] 06-09-2023 18:00-0400 Mean blood pressure 67 mm[Hg] AHMET CLARK MD [facility] 06-09-2023 16:00-0400 Mean blood pressure 54 mm[Hg] AHMET CLARK MD [facility] 06-09-2023 15:00-0400 Mean blood pressure 49 mm[Hg] AHMET CLARK MD [facility] 06-09-2023 15:00-0400 Signs/Symptoms Transfusion Reaction AHMET CLARK MD [facility] 06-09-2023 14:37-0400 Signs/Symptoms Transfusion Reaction AHMET CLARK MD [facility] 06-09-2023 13:40-0400 Diastolic blood pressure 55 mm[Hg] AHMET CLARK MD [facility] 06-09-2023 13:40-0400 Signs/Symptoms Transfusion Reaction No AHMET CLARK MD [facility] 06-09-2023 13:40-0400 Systolic blood pressure 145 mm[Hg] AHMET CLARK MD [facility] 06-08-2023 22:18-0400 Body height 165.1 cm AHMET CLARK MD [facility] 06-08-2023 22:18-0400 Body weight 83.3 kg AHMET CLARK MD [facility] 06-08-2023 22:18-0400 Body weight 30.56 kg/m2 AHMET CLARK MD [facility] 06-08-2023 20:58-0400 Diastolic blood pressure 68 mm[Hg] DR MARGARET IRLEY DO [facility] 06-08-2023 20:58-0400 Heart rate 93 /min DR MARGARET RILEY DO [facility] 06-08-2023 20:58-0400 Respiratory rate 24 /min DR MARGARET RILEY DO [facility] 06-08-2023 20:58-0400 Systolic blood pressure 135 mm[Hg] DR MARGARET RILEY DO [facility] 06-08-2023 19:54-0400 Diastolic Blood Pressure Non-Invasive 54 mm[Hg] DR MARGARET RILEY DO [facility] 06-08-2023 19:54-0400 Heart rate 100 /min DR MARGARET RILEY DO [facility] 06-08-2023 19:54-0400 Respiratory rate 24 /min DR MARGARET RILEY DO [facility] 06-08-2023 19:54-0400 Systolic Blood Pressure Non-Invasive 138 mm[Hg] DR MARGARET RILEY DO [facility] 06-08-2023 19:09-0400 Diastolic Blood Pressure Non-Invasive 91 mm[Hg] DR MARGARET RILEY DO [facility] 06-08-2023 19:09-0400 Heart rate 100 /min DR MARGARET RILEY DO [facility] 06-08-2023 19:09-0400 Respiratory rate 24 /min DR MARGARET RILEY DO [facility] 06-08-2023 19:09-0400 Systolic Blood Pressure Non-Invasive 114 mm[Hg] DR MARGARET RILEY DO [facility] 06-08-2023 18:27-0400 SaO2% (BldA) [Mass fraction] 99 % DR MARGARET RILEY DO [facility] 06-08-2023 18:20-0400 Heart rate 98 /min DR MARGARET RILEY DO [facility] 06-08-2023 18:08-0400 Diastolic Blood Pressure Non-Invasive 71 mm[Hg] DR MARGARET RILEY DO [facility] 06-08-2023 18:08-0400 Systolic Blood Pressure Non-Invasive 155 mm[Hg] DR MARGARET RILEY DO [facility] 06-08-2023 15:22-0400 Heart rate 96 /min DR MARGARET RILEY DO [facility] 06-08-2023 15:04-0400 Heart rate 90 /min DR MARGARET RILEY DO [facility] 06-08-2023 13:48-[address] MARGARET RILEY DO [facility] 06-08-2023 13:48-[address] MARGARET RILEY DO [facility] 06-08-2023 13:48-0400 Body temperature 98.24 [degF] DR MARGARET RILEY DO [facility] 06-08-2023 13:48-0400 Body weight 84.[address] MARGARET RILEY DO [facility] 05-25-2023 17:50-0400 Diastolic Blood Pressure Non-Invasive 77 mm[Hg] ANNY DA SILVA MD [facility] 05-25-2023 17:50-0400 Heart rate 99 /min ANNY DA SILVA MD [facility] 05-25-2023 17:50-0400 Respiratory rate 22 /min ANNY DA SILVA MD [facility] 05-25-2023 17:50-0400 Systolic Blood Pressure Non-Invasive 130 mm[Hg] ANNY DA SILVA MD [facility] 05-25-2023 16:55-0400 Diastolic Blood Pressure Non-Invasive 62 mm[Hg] ANNY DA SILVA MD [facility] 05-25-2023 16:55-0400 Heart rate 93 /min ANNY DA SILVA MD [facility] 05-25-2023 16:55-0400 Respiratory rate 22 /min ANNY DA SILVA MD [facility] 05-25-2023 16:55-0400 Systolic Blood Pressure Non-Invasive 136 mm[Hg] ANNY DA SILVA MD [facility] 05-25-2023 16:45-0400 Heart rate 90 /min ANNY DA SILVA MD [facility] 05-25-2023 16:45-0400 Respiratory rate 22 /min ANNY DA SILVA MD [facility] 05-25-2023 16:31-0400 Diastolic Blood Pressure Non-Invasive 61 mm[Hg] ANNY DA SILVA MD [facility] 05-25-2023 16:31-0400 Systolic Blood Pressure Non-Invasive 144 mm[Hg] ANNY DA SILVA MD [facility] 05-25-2023 15:04-0400 Body temperature 98.78 [degF] ANNY DA SILVA MD [facility] 05-25-2023 15:04-0400 Body weight 86.4 kg ANNY DA SILVA MD [facility] 05-08-2023 15:22-0500 Body temperature 97.7 [degF] DELIA KAPPER [employer] SUPERVIS[employer] HOUSE OPERATOR [facility] 05-08-2023 15:22-0500 Diastolic Blood Pressure Non-Invasive 49 mm[Hg] DELIA KAPPER [employer]AGULATING [employer]YING SUPERVISOR-BOILER HOUSE OPERATOR [facility] 05-08-2023 15:22-0500 Heart rate 78 /min DELIA KAPPER COAGULATING DRYING SUPERVISOR-BOILER HOUSE OPERATOR [facility] 05-08-2023 15:22-0500 Reason For Taking VItal Signs DELIA KAPPER COAGULATING DRYING SUPERVISOR-BOILER HOUSE OPERATOR [facility] 05-08-2023 15:22-0500 Respiratory rate 20 /min DELIA KAPPER [employer]AGULATING DRYING SUPERVISOR-BOILER HOUSE OPERATOR [facility] 05-08-2023 15:22-0500 Systolic Blood Pressure Non-Invasive 139 mm[Hg] DELIA KAPPER COAGULATING DRYING SUPERVISOR-BOILER HOUSE OPERATOR [facility] 05-08-2023 15:11-0500 Heart rate 82 /min DELIA KAPPER COAGULATING DRYING SUPERVISOR-BOILER HOUSE OPERATOR [facility] 05-08-2023 15:11-0500 Respiratory rate 20 /min DELIA KAPPER COAGULATING [employer]YING SUPERVISOR-BOILER HOUSE OPERATOR [facility] 05-08-2023 11:11-0500 Heart rate 77 /min DELIA KAPPER COAGULATING DRYING SUPERVISOR-BOILER HOUSE OPERATOR [facility] 05-08-2023 11:11-0500 Respiratory rate 20 /min DELIA KAPPER COAGULATING DRYING SUPERVISOR-BOILER HOUSE OPERATOR [facility] 05-08-2023 11:00-0500 Systolic Blood Pressure Non-Invasive 153 mm[Hg] DELIA MARCER COAGULATING DRYING SUPERVISOR-BOILER HOUSE OPERATOR [facility] 05-08-2023 06:45-0500 Body temperature 97.52 [degF] DELIA KAPPER [employer]ATING [employer]YING SUPERVISOR-BOILER HOUSE OPERATOR [facility] 05-08-2023 06:45-0500 Diastolic Blood Pressure Non-Invasive 52 mm[Hg] DELIA KAPPER COAGULATING DRYING SUPERVISOR-BOILER HOUSE OPERATOR [facility] 05-08-2023 06:45-0500 Heart rate 69 /min DELIA KAPPER COAGULATING DRYING SUPERVISOR-BOILER HOUSE OPERATOR [facility] 05-08-2023 06:45-0500 Reason For Taking VItal Signs DELIA TRANER COAGULATING DRYING SUPERVISOR-BOILER HOUSE OPERATOR [facility] 05-08-2023 06:45-0500 Systolic Blood Pressure Non-Invasive 136 mm[Hg] DELIA MARCER COAGULATING DRYING SUPERVISOR-BOILER HOUSE OPERATOR [facility] 05-08-2023 05:43-0500 Heart rate 71 /min DELIA KAPPER COAGULATING DRYING SUPERVISOR-BOILER HOUSE OPERATOR [facility] 05-07-2023 20:07-0500 Heart rate 74 /min DELIA KAPPER COAGULATING DRYING SUPERVISOR-BOILER HOUSE OPERATOR [facility] 05-07-2023 16:55-0500 Heart rate 84 /min DELIA KAPPER COAGULATING DRYING SUPERVISOR-BOILER HOUSE OPERATOR [facility] 05-07-2023 14:29-0500 Body height 165.1 cm DELIA TRANER COAGULATING [employer]YING SUPERVISOR-BOILER HOUSE OPERATOR [facility] 05-07-2023 14:29-0500 Body weight 87 kg DELIA KAPPER COAGULATING DRYING SUPERVISOR-BOILER HOUSE OPERATOR [facility] 05-07-2023 14:29-0500 Body weight 31.92 kg/m2 DELIA JEFFERSON [employer]AGULATING [employer]YING SUPERVISOR-BOILER HOUSE OPERATOR [facility] 05-07-2023 09:56-0500 Body height 165.1 cm DELIA JEFFERSON COAGULATING DRYING SUPERVISOR-BOILER HOUSE OPERATOR [facility] 05-07-2023 09:56-0500 Body weight 87 kg DELIA JEFFERSON COAGULATING DRYING SUPERVISOR-BOILER HOUSE OPERATOR [facility] 05-01-2023 05:20-0500 Body temperature 97.4 [degF] Dr. Talya Nichols Work Phone: [facility] 05-01-2023 05:20-0500 Diastolic blood pressure 56 mm[Hg] Dr. Talya Nichols Work Phone: [facility] 05-01-2023 05:20-0500 Heart rate 74 /min Dr. Talya Nichols Work Phone: [facility] 05-01-2023 05:20-0500 Respiratory rate 22 /min Dr. Talya Nichols Work Phone: [facility] 05-01-2023 05:20-0500 SaO2% (BldA) [Mass fraction] 97 % Dr. Talya Nichols Work Phone: [facility] 05-01-2023 05:20-0500 Systolic blood pressure 138 mm[Hg] Dr. Talya Nichols Work Phone: [facility] 04-30-2023 23:00-0500 Inhaled oxygen flow rate 4 L/min Dr. Talya Nichols Work Phone: [facility] 04-30-2023 21:40-0500 Body height 165.[address] Talya Nichols Work Phone: [facility] 04-30-2023 21:40-0500 Body mass index (BMI) [Ratio] 33.6 kg/m2 Dr. Talya Nichols Work Phone: [facility] 04-30-2023 21:40-0500 Body weight 91.[address] Talya Nichols Work Phone: [facility] 04-26-2023 12:15-0500 Heart rate 8 /min Dr. Talya Nichols Work Phone: [facility] 04-26-2023 12:15-0500 Respiratory rate 20 /min Dr. Talya Nichols Work Phone: [facility] 04-26-2023 11:31-0500 Inhaled oxygen flow rate 2 L/min Dr. Talya Nichols Work Phone: [facility] 04-26-2023 11:31-0500 SaO2% (BldA) [Mass fraction] 98 % Dr. Talya Nichols Work Phone: [facility] 04-26-2023 08:20-0500 Body temperature 97.5 [degF] Dr. Talya Nichols Work Phone: [facility] 04-26-2023 08:20-0500 Diastolic blood pressure 46 mm[Hg] Dr. Talya Nichols Work Phone: [facility] 04-26-2023 08:20-0500 Systolic blood pressure 134 mm[Hg] Dr. Talya Nichols Work Phone: [facility] 04-26-2023 01:30-0500 Body mass index (BMI) [Ratio] 31.6 kg/m2 Dr. Talya Nichols Work Phone: [facility] 04-26-2023 01:30-0500 Body weight 86.[address] Talya Nichols Work Phone: [facility] 04-25-2023 10:36-0500 Body height 165.[address] Talya Nichols Work Phone: [facility] 04-24-2023 19:45-0500 Diastolic blood pressure 72 mm[Hg] Dr. Talya Nichols Work Phone: [facility] 04-24-2023 19:45-0500 Heart rate 107 /min Dr. Talya Nichols Work Phone: [facility] 04-24-2023 19:45-0500 Respiratory rate 27 /min Dr. Talya Nichols Work Phone: [facility] 04-24-2023 19:45-0500 SaO2% (BldA) [Mass fraction] 94 % Dr. Talya Nichols Work Phone: [facility] 04-24-2023 19:45-0500 Systolic blood pressure 90 mm[Hg] Dr. Talya Nichols Work Phone: [facility] 04-24-2023 19:03-0500 Body temperature 97.9 [degF] Dr. Talya Nichols Work Phone: [facility] 04-24-2023 18:29-0500 Inhaled oxygen flow rate 4 L/min Dr. Talya Nichols Work Phone: [facility] 04-24-2023 15:35-0500 Body height 165.[address] Talya Nichols Work Phone: [facility] 04-24-2023 15:35-0500 Body mass index (BMI) [Ratio] 33.3 kg/m2 Dr. Talya Nichols Work Phone: [facility] 04-24-2023 15:35-0500 Body weight 90.[address] Talya Nichols Work Phone: [facility] 04-07-2023 16:12-0500 Diastolic blood pressure 65 mm[Hg] Dr. Tlaya Nichols Work Phone: [facility] 04-07-2023 16:12-0500 Heart rate 91 /min Dr. Talya Nichols Work Phone: [facility] 04-07-2023 16:12-0500 SaO2% (BldA) [Mass fraction] 99 % Dr. Talya Nichols Work Phone: [facility] 04-07-2023 16:12-0500 Systolic blood pressure 160 mm[Hg] Dr. Talya Nichols Work Phone: [facility] 04-07-2023 14:19-0500 Inhaled oxygen flow rate 3 L/min Dr. Talya Nichols Work Phone: [facility] 04-07-2023 14:07-0500 Inhaled oxygen concentration 97 % Dr. Talya Nichols Work Phone: [facility] 04-07-2023 13:42-0500 Body height 165.[address] Talya Nichols Work Phone: [facility] 04-07-2023 13:42-0500 Body mass index (BMI) [Ratio] 33.2 kg/m2 Dr. Talya Nichols Work Phone: [facility] 04-07-2023 13:42-0500 Body temperature 98.4 [degF] Dr. Talya Nichols Work Phone: [facility] 04-07-2023 13:42-0500 Body weight 90.[address] Talya Nichols Work Phone: [facility] 04-07-2023 13:42-0500 Respiratory rate 36 /min Dr. Talya Nichols Work Phone: [facility] 04-02-2023 11:01-0500 Body temperature 98.6 [degF] Dr. Talya Nichols Work Phone: [facility] 04-02-2023 11:01-0500 Diastolic blood pressure 59 mm[Hg] Dr. Talya Nichols Work Phone: [facility] 04-02-2023 11:01-0500 Heart rate 90 /min Dr. Talya Nichols Work Phone: [facility] 04-02-2023 11:01-0500 Inhaled oxygen flow rate 2 L/min Dr. Talya Nichols Work Phone: [facility] 04-02-2023 11:01-0500 Respiratory rate 18 /min Dr. Talya Nichols Work Phone: [facility] 04-02-2023 11:01-0500 SaO2% (BldA) [Mass fraction] 98 % Dr. Talya Nichols Work Phone: [facility] 04-02-2023 11:01-0500 Systolic blood pressure 136 mm[Hg] Dr. Talya Nichols Work Phone: [facility] 04-02-2023 09:15-0500 Body height 165.[address] Talya Nichols Work Phone: [facility] 04-02-2023 09:15-0500 Body mass index (BMI) [Ratio] 32.4 kg/m2 Dr. Talya Nichols Work Phone: [facility] 04-02-2023 09:15-0500 Body weight 88.[address] Talya Nichols Work Phone: [facility] 03-09-2023 16:48-0500 Body temperature 97.9 [degF] Dr. Talya Nichols Work Phone: [facility] 03-09-2023 16:48-0500 Diastolic blood pressure 87 mm[Hg] Dr. Talya Nichols Work Phone: [facility] 03-09-2023 16:48-0500 Heart rate 100 /min Dr. Talya Nichols Work Phone: [facility] 03-09-2023 16:48-0500 Inhaled oxygen flow rate 2 L/min Dr. Talya Nichols Work Phone: [facility] 03-09-2023 16:48-0500 Respiratory rate 18 /min Dr. Talya Nichols Work Phone: [facility] 03-09-2023 16:48-0500 SaO2% (BldA) [Mass fraction] 95 % Dr. Talya Nichols Work Phone: [facility] 03-09-2023 16:48-0500 Systolic blood pressure 131 mm[Hg] Dr. Talya Nichols Work Phone: [facility] 03-08-2023 14:56-0500 Body height 165.[address] Talya Nichols Work Phone: [facility] 03-08-2023 14:56-0500 Body weight 84.[address] Talya Nichols Work Phone: [facility] 03-07-2023 22:14-0500 Body mass index (BMI) [Ratio] 31.1 kg/m2 Dr. Talya Nichols Work Phone: [facility] 03-07-2023 20:21-0500 Diastolic blood pressure 49 mm[Hg] Dr. Talya Nichols Work Phone: [facility] 03-07-2023 20:21-0500 Heart rate 81 /min Dr. Talya Nichols Work Phone: [facility] 03-07-2023 20:21-0500 SaO2% (BldA) [Mass fraction] 98 % Dr. Talya Nichols Work Phone: [facility] 03-07-2023 20:21-0500 Systolic blood pressure 133 mm[Hg] Dr. Talya Nichols Work Phone: [facility] 03-07-2023 19:11-0500 Respiratory rate 24 /min Dr. Talya Nichols Work Phone: [facility] 03-07-2023 18:55-0500 Inhaled oxygen flow rate 3 L/min Dr. Talya Nichols Work Phone: [facility] 03-07-2023 18:29-0500 Body temperature 98.4 [degF] Dr. Talya Nichols Work Phone: [facility] 03-07-2023 18:22-0500 Body height 165.[address] Talya Nichols Work Phone: [facility] 03-07-2023 18:22-0500 Body mass index (BMI) [Ratio] 32.3 kg/m2 Dr. Talya Nichols Work Phone: [facility] 03-07-2023 18:22-0500 Body weight [address] Talya Nichols Work Phone: [facility] 02-15-2023 13:59-0500 Body height 165.[address] Talya Nichols Work Phone: [facility] 02-15-2023 13:59-0500 Body weight 85.[address] Talya Nichols Work Phone: [facility] 02-15-2023 12:57-0500 Heart rate 90 /min Dr. Talya Nichols Work Phone: [facility] 02-15-2023 12:57-0500 Respiratory rate 20 /min Dr. Talya Nichols Work Phone: [facility] 02-15-2023 12:00-0500 Body temperature 97.1 [degF] Dr. Talya Nichols Work Phone: [facility] 02-15-2023 12:00-0500 Diastolic blood pressure 52 mm[Hg] Dr. Talya Nichols Work Phone: [facility] 02-15-2023 12:00-0500 Inhaled oxygen flow rate 2 L/min Dr. Talya Nichols Work Phone: [facility] 02-15-2023 12:00-0500 SaO2% (BldA) [Mass fraction] 99 % Dr. Talya Nichols Work Phone: [facility] 02-15-2023 12:00-0500 Systolic blood pressure 129 mm[Hg] Dr. Talya Nichols Work Phone: [facility] 02-15-2023 03:14-0500 Body mass index (BMI) [Ratio] 31.3 kg/m2 Dr. Talya Nichols Work Phone: [facility] 02-14-2023 22:00-0500 Inhaled oxygen concentration 98 % Dr. Talya Nichols Work Phone: [facility] 02-13-2023 23:32-0500 Diastolic blood pressure 40 mm[Hg] Dr. Talya Nichols Work Phone: [facility] 02-13-2023 23:32-0500 Heart rate 98 /min Dr. Talya Nichols Work Phone: [facility] 02-13-2023 23:32-0500 Inhaled oxygen flow rate 2 L/min Dr. Talya Nichols Work Phone: [facility] 02-13-2023 23:32-0500 Respiratory rate 20 /min Dr. Talya Nichols Work Phone: [facility] 02-13-2023 23:32-0500 SaO2% (BldA) [Mass fraction] 99 % Dr. Talya Nichols Work Phone: [facility] 02-13-2023 23:32-0500 Systolic blood pressure 109 mm[Hg] Dr. Talya Nichols Work Phone: [facility] 02-13-2023 22:36-0500 Body temperature 98.2 [degF] Dr. Talya Nichols Work Phone: [facility] 02-13-2023 22:24-0500 Inhaled oxygen concentration 2 % Dr. Talya Nichols Work Phone: [facility] 02-13-2023 20:08-0500 Body height 165.[address] Talya Nichols Work Phone: [facility] 02-13-2023 20:08-0500 Body mass index (BMI) [Ratio] 32 kg/m2 Dr. Talya Nichols Work Phone: [facility] 02-13-2023 20:08-0500 Body weight 87.[address] Talya Nichols Work Phone: [facility] 02-08-2023 22:00-0500 Diastolic blood pressure 46 mm[Hg] Dr. Talay Nichols Work Phone: [facility] 02-08-2023 22:00-0500 Respiratory rate 16 /min Dr. Talya Nichols Work Phone: [facility] 02-08-2023 22:00-0500 SaO2% (BldA) [Mass fraction] 95 % Dr. Talya Nichols Work Phone: [facility] 02-08-2023 22:00-0500 Systolic blood pressure 125 mm[Hg] Dr. Talya Nichols Work Phone: [facility] 02-08-2023 21:57-0500 Heart rate 98 /min Dr. Talya Nichols Work Phone: [facility] 02-08-2023 20:29-0500 Inhaled oxygen flow rate 2 L/min Dr. Talya Nichols Work Phone: [facility] 02-08-2023 17:56-0500 Body temperature 98.6 [degF] Dr. Talya Nichols Work Phone: [facility] 02-08-2023 17:50-0500 Body mass index (BMI) [Ratio] 32.7 kg/m2 Dr. Talya Nichols Work Phone: [facility] 02-08-2023 17:50-0500 Body weight 89.[address] Talya Nichols Work Phone: [facility] 11-18-2022 15:26-0400 Inhaled oxygen flow rate 2 L/min Dr. Talya Nichols Work Phone: [facility] 11-18-2022 15:26-0400 SaO2% (BldA) [Mass fraction] 92 % Dr. Talya Nichols Work Phone: [facility] 11-18-2022 15:22-0400 Body temperature 98.4 [degF] Dr. Talya Nichols Work Phone: [facility] 11-18-2022 15:22-0400 Diastolic blood pressure 58 mm[Hg] Dr. Talya Nichols Work Phone: [facility] 11-18-2022 15:22-0400 Heart rate 92 /min Dr. Talya Nichols Work Phone: [facility] 11-18-2022 15:22-0400 Respiratory rate 18 /min Dr. Talya Nichols Work Phone: [facility] 11-18-2022 15:22-0400 Systolic blood pressure 151 mm[Hg] Dr. Talya Nichols Work Phone: [facility] 11-17-2022 11:56-0400 Body height 165.[address] Talya Nichols Work Phone: [facility] 11-17-2022 11:56-0400 Body weight 84.[address] Talya Nichols Work Phone: [facility] 11-16-2022 19:44-0400 Body mass index (BMI) [Ratio] 31.1 kg/m2 Dr. Talya Nichols Work Phone: [facility] 11-16-2022 19:04-0400 Body temperature 98.1 [degF] [facility] 11-16-2022 19:04-0400 Diastolic blood pressure 42 mm[Hg] [facility] 11-16-2022 19:04-0400 Heart rate 98 /min [facility] 11-16-2022 19:04-0400 Respiratory rate 24 /min [facility] 11-16-2022 19:04-0400 SaO2% (BldA) [Mass fraction] 99 % [facility] 11-16-2022 19:04-0400 Systolic blood pressure 117 mm[Hg] [facility] 11-16-2022 16:47-0400 Inhaled oxygen flow rate 2 L/min [facility] 11-16-2022 16:26-0400 Body height 165.1 cm [facility] 11-16-2022 16:26-0400 Body mass index (BMI) [Ratio] 32.7 kg/m2 [facility] 11-16-2022 16:26-0400 Body weight 89.2 kg [facility] 10-23-2022 00:04-0400 Respiratory rate 20 /min Dr. Talya Nichols Work Phone: [facility] 10-23-2022 00:04-0400 SaO2% (BldA) [Mass fraction] 95 % Dr. Talya Nichols Work Phone: [facility] 10-22-2022 22:50-0400 Diastolic blood pressure 56 mm[Hg] Dr. Talya Nichols Work Phone: [facility] 10-22-2022 22:50-0400 Heart rate 93 /min Dr. Talya Nichols Work Phone: [facility] 10-22-2022 22:50-0400 Inhaled oxygen flow rate 2 L/min Dr. Talya Nichols Work Phone: [facility] 10-22-2022 22:50-0400 Systolic blood pressure 131 mm[Hg] Dr. Talya Nichols Work Phone: [facility] 10-22-2022 21:40-0400 Body temperature 98.6 [degF] Dr. Talya Nichols Work Phone: [facility] 10-22-2022 20:14-0400 Body height 165.[address] Talya Nichols Work Phone: [facility] 10-22-2022 20:14-0400 Body mass index (BMI) [Ratio] 33.4 kg/m2 Dr. Talya Nichols Work Phone: [facility] 10-22-2022 20:14-0400 Body weight 91.[address] Talya Nichols Work Phone: [facility] 07-06-2022 09:09-0400 Body mass index (BMI) [Ratio] 31.1 kg/m2 Dr. Talya Nichols Work Phone: [facility] 07-06-2022 09:09-0400 Body weight 84.[address] Talya Nichols Work Phone: [facility] 07-06-2022 09:09-0400 Diastolic blood pressure 71 mm[Hg] Dr. Talya Nichols Work Phone: [facility] 07-06-2022 09:09-0400 Heart rate 87 /min Dr. Talya Nichols Work Phone: [facility] 07-06-2022 09:09-0400 Inhaled oxygen flow rate 2 L/min Dr. Talya Nichols Work Phone: [facility] 07-06-2022 09:09-0400 Respiratory rate 24 /min Dr. Talya Nichols Work Phone: [facility] 07-06-2022 09:09-0400 SaO2% (BldA) [Mass fraction] 95 % Dr. Talya Nichols Work Phone: [facility] 07-06-2022 09:09-0400 Systolic blood pressure 140 mm[Hg] Dr. Talya Nichols Work Phone: [facility] 05-26-2022 10:00-0400 Inhaled oxygen flow rate 2 L/min Dr. Talya Nichols Work Phone: [facility] 05-26-2022 09:30-0400 Body temperature 97.9 [degF] Dr. Talya Nichols Work Phone: [facility] 05-26-2022 09:30-0400 Diastolic blood pressure 67 mm[Hg] Dr. Talya Nichols Work Phone: [facility] 05-26-2022 09:30-0400 Heart rate 89 /min Dr. Talya Nichols Work Phone: [facility] 05-26-2022 09:30-0400 Respiratory rate 18 /min Dr. Talya Nichols Work Phone: [facility] 05-26-2022 09:30-0400 SaO2% (BldA) [Mass fraction] 93 % Dr. Talya Nichols Work Phone: [facility] 05-26-2022 09:30-0400 Systolic blood pressure 116 mm[Hg] Dr. Talya Nihcols Work Phone: [facility] 05-26-2022 05:25-0400 Body mass index (BMI) [Ratio] 31.3 kg/m2 Dr. Talya Nichols Work Phone: [facility] 05-26-2022 05:25-0400 Body weight 85.[address] Talya Nichols Work Phone: [facility] 05-24-2022 17:47-0400 Body height 165.[address] Talya Nichols Work Phone: [facility] 05-24-2022 16:11-0400 Body temperature 98 [degF] Dr. Talya Nichols Work Phone: [facility] 05-24-2022 16:11-0400 Diastolic blood pressure 50 mm[Hg] Dr. Talya Nichols Work Phone: [facility] 05-24-2022 16:11-0400 Heart rate 97 /min Dr. Talya Nichols Work Phone: [facility] 05-24-2022 16:11-0400 Inhaled oxygen flow rate 3 L/min Dr. Talya Nichols Work Phone: [facility] 05-24-2022 16:11-0400 Respiratory rate 26 /min Dr. Talya Nichols Work Phone: [facility] 05-24-2022 16:11-0400 SaO2% (BldA) [Mass fraction] 96 % Dr. Talya Nichols Work Phone: [facility] 05-24-2022 16:11-0400 Systolic blood pressure 150 mm[Hg] Dr. Talya Nichols Work Phone: [facility] 05-24-2022 11:08-0400 Body height 165.[address] Talya Nichols Work Phone: [facility] 05-24-2022 11:08-0400 Body mass index (BMI) [Ratio] 33.1 kg/m2 Dr. Talya Nichols Work Phone: [facility] 05-24-2022 11:08-0400 Body weight 90.[address] Talya Nichols Work Phone: [facility] 05-02-2022 09:27-0500 Body mass index (BMI) [Ratio] 31.1 kg/m2 Dr. Talya Nichols Work Phone: [facility] 05-02-2022 09:27-0500 Body weight 84.[address] Talya Nichols Work Phone: [facility] 05-02-2022 09:27-0500 Diastolic blood pressure 73 mm[Hg] Dr. Talya Nichols Work Phone: [facility] 05-02-2022 09:27-0500 Heart rate 67 /min Dr. Talya Nichols Work Phone: [facility] 05-02-2022 09:27-0500 Inhaled oxygen flow rate 2 L/min Dr. Talya Nichols Work Phone: [facility] 05-02-2022 09:27-0500 Respiratory rate 20 /min Dr. Talya Nichols Work Phone: [facility] 05-02-2022 09:27-0500 SaO2% (BldA) [Mass fraction] 95 % Dr. Talya Nichols Work Phone: [facility] 05-02-2022 09:27-0500 Systolic blood pressure 141 mm[Hg] Dr. Talya Nichols Work Phone: [facility] 04-13-2022 11:43-0500 SaO2% (BldA) [Mass fraction] 94 % Dr. Talya Nichols Work Phone: [facility] 04-13-2022 11:07-0500 Inhaled oxygen flow rate 2 L/min Dr. Talya Nichols Work Phone: [facility] 04-13-2022 10:00-0500 Respiratory rate 20 /min Dr. Talya Nichols Work Phone: [facility] 04-13-2022 09:49-0500 Body temperature 97.9 [degF] Dr. Talya Nichols Work Phone: [facility] 04-13-2022 09:49-0500 Diastolic blood pressure 64 mm[Hg] Dr. Talya Nichols Work Phone: [facility] 04-13-2022 09:49-0500 Heart rate 95 /min Dr. Talya Nichols Work Phone: [facility] 04-13-2022 09:49-0500 Systolic blood pressure 152 mm[Hg] Dr. Talya Nichols Work Phone: [facility] 04-13-2022 05:40-0500 Body weight 89.[address] Talya Nichols Work Phone: [facility] 04-12-2022 14:10-0500 Body height 165.[address] Talya Nichols Work Phone: [facility] 04-11-2022 23:35-0500 Body mass index (BMI) [Ratio] 32.3 kg/m2 Dr. Talya Nichols Work Phone: [facility] 04-11-2022 22:42-0500 Body temperature 97.4 [degF] Dr. Talya Nichols Work Phone: [facility] 04-11-2022 22:42-0500 Diastolic blood pressure 55 mm[Hg] Dr. Talya Nichols Work Phone: [facility] 04-11-2022 22:42-0500 Heart rate 98 /min Dr. Talya Nichols Work Phone: [facility] 04-11-2022 22:42-0500 Inhaled oxygen flow rate 4 L/min Dr. Talya Nichols Work Phone: [facility] 04-11-2022 22:42-0500 Respiratory rate 24 /min Dr. Talya Nichols Work Phone: [facility] 04-11-2022 22:42-0500 SaO2% (BldA) [Mass fraction] 98 % Dr. Talya Nichols Work Phone: [facility] 04-11-2022 22:42-0500 Systolic blood pressure 177 mm[Hg] Dr. Talya Nichols Work Phone: [facility] 04-11-2022 18:11-0500 Body height 165.[address] Talya Nichols Work Phone: [facility] 04-11-2022 18:11-0500 Body mass index (BMI) [Ratio] 34.9 kg/m2 Dr. Talya Nichols Work Phone: [facility] 04-11-2022 18:11-0500 Body weight 95.[address] Talya Nichols Work Phone: [facility] 03-16-2022 11:17-0500 Heart rate 80 /min Dr. Talya Nichols Work Phone: [facility] 03-16-2022 11:17-0500 Respiratory rate 20 /min Dr. Talya Nichols Work Phone: [facility] 03-16-2022 09:00-0500 Body temperature 97.9 [degF] Dr. Talya Nichols Work Phone: [facility] 03-16-2022 09:00-0500 Diastolic blood pressure 42 mm[Hg] Dr. Talya Nichols Work Phone: [facility] 03-16-2022 09:00-0500 Inhaled oxygen flow rate 2 L/min Dr. Talya Nichols Work Phone: [facility] 03-16-2022 09:00-0500 SaO2% (BldA) [Mass fraction] 99 % Dr. Talya Nichols Work Phone: [facility] 03-16-2022 09:00-0500 Systolic blood pressure 107 mm[Hg] Dr. Talya Nichols Work Phone: [facility] 03-15-2022 03:13-0500 Body weight 85.[address] Talya Nichols Work Phone: [facility] 03-12-2022 12:40-0500 Body height 165.[address] Talya Nichols Work Phone: [facility] Work Phone: 03-12-2022 03:41-0500 Body mass index (BMI) [Ratio] 73.3 kg/m2 Dr. Talya Nichols Work Phone: [facility] 12-16-2021 16:00-0400 Inhaled oxygen flow rate 2 L/min Dr. Talya Nichols Work Phone: [facility] 12-16-2021 14:13-0400 Heart rate 110 /min Dr. Talya Nichols Work Phone: [facility] 12-16-2021 14:13-0400 Respiratory rate 24 /min Dr. Talya Nichols Work Phone: [facility] 12-16-2021 13:46-0400 Diastolic blood pressure 56 mm[Hg] Dr. Talya Nichols Work Phone: [facility] 12-16-2021 13:46-0400 Systolic blood pressure 158 mm[Hg] Dr. Talya Nichols Work Phone: [facility] 12-16-2021 13:39-0400 Body temperature 97.2 [degF] Dr. Talya Nichols Work Phone: [facility] 12-16-2021 13:39-0400 SaO2% (BldA) [Mass fraction] 99 % Dr. Talya Nichols Work Phone: [facility] 12-16-2021 06:00-0400 Body weight 91.[address] Talya Nichols Work Phone: [facility] 12-13-2021 14:18-0400 Body height 165.[address] Talya Nichols Work Phone: [facility] Work Phone: 12-13-2021 14:18-0400 Body mass index (BMI) [Ratio] 33 kg/m2 Dr. Talya Nichols Work Phone: [facility] 12-08-2021 13:19-0400 Heart rate 75 /min [facility] Work Phone: 12-08-2021 13:19-0400 SaO2% (BldA) [Mass fraction] 93 % [facility] Work Phone: 12-08-2021 13:05-0400 Respiratory rate 24 /min Dr. Talya Nichols Work Phone: [facility] Work Phone: 12-08-2021 08:37-0400 Body temperature 98.4 [degF] [facility] Work Phone: 12-08-2021 08:37-0400 Diastolic blood pressure 81 mm[Hg] [facility] Work Phone: 12-08-2021 08:37-0400 Respiratory rate 20 /min [facility] Work Phone: 12-08-2021 08:37-0400 Systolic blood pressure 195 mm[Hg] [facility] Work Phone: 12-08-2021 08:35-0400 Body height 165.1 cm [facility] Work Phone: 12-08-2021 08:35-0400 Body mass index (BMI) [Ratio] 34 kg/m2 [facility] Work Phone: 12-08-2021 08:35-0400 Body weight 92.6 kg [facility] Work Phone: 04-23-2021 15:48-0500 Heart rate 96 /min RADHA YADAV MD [facility] 04-23-2021 15:48-0500 Respiratory rate 20 /min RADHA YADAV MD [facility] 04-23-2021 14:45-0500 Diastolic blood pressure 87 mm[Hg] RADHA YADAV MD [facility] 04-23-2021 14:45-0500 Heart rate 101 /min RADHA YADAV MD [facility] 04-23-2021 14:45-0500 Respiratory rate 20 /min RADHA YADAV MD [facility] 04-23-2021 14:45-0500 Systolic blood pressure 133 mm[Hg] RADHA YADAV MD [facility] 04-23-2021 14:05-0500 Heart rate 107 /min RADHA YADAV MD [facility] 04-23-2021 14:05-0500 Respiratory rate 22 /min RADHA YADAV MD [facility] 04-23-2021 13:50-0500 Diastolic blood pressure 90 mm[Hg] RADHA YADAV MD [facility] 04-23-2021 13:50-0500 Systolic blood pressure 135 mm[Hg] RADHA YADAV MD [facility] Encounters Encounter Date Encounter Type Care Provider Facility Start: 08-01-2024 End: 08-01-[address] Yuridia Hernandez MD Work Phone: [facility] Work Phone: Start: 08-01-2024 End: 08-01-[address] Manuela Miller [place] Work Phone: Start: 08-01-2024 End: 08-01-2024 ambulatory Manuela Washburn Facility:[facility] Start: 07-14-2024 End: 07-14-2024 Patient encounter procedure Liliya Troncoso [facility] Work Phone: Start: 07-14-2024 End: 07-14-2024 ambulatory Liliya Troncoso Facility:[facility] Start: 07-04-2024 End: 07-04-[address] Manuela Miller [place] Work Phone: Start: 07-04-2024 End: 07-04-2024 ambulatory Manuela Washburn Facility:[facility] Start: 06-30-2024 End: 06-30-[address] Yuridia Hernandez MD -[facility] Work Phone: Start: 06-30-2024 End: 06-30-2024 ambulatory Yuridia Hernandez Facility:[facility] Start: 06-25-2024 Non-patient / Non-visit Dr. Sarai Alcantara MD -[facility] Work Phone: Start: 06-24-2024 Non-patient / Non-visit Dr. Sarai Alcantara MD -[facility] Work Phone: Start: 06-23-2024 ambulatory Tracy Angel Facility :[facility] Start: 06-23-2024 End: 06-25-2024 Evaluation and management of inpatient Dr. Tracy Angel MD -[facility] Work Phone: Start: 05-28-[address] Andre Duarte MD -[facility] Start: 05-28-2024 End: 05-28-[address] Andre Duarte MD -[facility] Work Phone: Start: 05-28-2024 End: 05-28-2024 ambulatory [facility] Facility:[facility] Start: 04-03-[address] YURIDIA HERNANDEZ MD [facility] Start: 04-02-2024 End: 04-02-[address] Andre Duarte MD -[facility] Work Phone: Start: 04-02-2024 End: 04-02-2024 ambulatory [facility] Start: 03-24-2024 End: 03-24-[address] Andre Duarte MD -[facility] Work Phone: Start: 03-24-2024 End: 03-24-2024 ambulatory [facility] Start: 03-17-2024 End: 03-17-2024 Patient encounter procedure Fredy Joy DO [facility] Work Phone: Start: 03-17-2024 End: 03-17-2024 ambulatory Fredy Benita Facility:[facility] Start: 03-14-2024 End: 03-14-[address] Yuridia Hernandez MD -Laboratory, [facility] Start: 03-14-2024 End: 03-14-2024 ambulatory Yuridia Hernandez OLS Facility:[facility] Start: 03-02-2024 Non-patient / Non-visit Dr. Sarai Alcantara MD -[facility] Work Phone: Start: 03-01-2024 Non-patient / Non-visit Dr. Sarai Alcantara MD -[facility] Work Phone: Start: 03-01-2024 ambulatory Sarai Alcantara Facility :[facility] Start: 03-01-2024 Non-patient / Non-visit Fredyalba Joy DO -[facility] Start: 02-29-2024 Non-patient / Non-visit Fredyalba Joy DO -[facility] Start: 02-29-2024 Non-patient / Non-visit Dr. Sarai Alcantara MD -[facility] Work Phone: Start: 02-28-2024 ambulatory Sarai Alcantara Facility :[facility] Start: 02-28-2024 End: 03-02-2024 Evaluation and management of inpatient Dr. Sarai Alcantara MD -[facility] Work Phone: Start: 02-28-2024 [facility] Start: 02-28-2024 ambulatory Yuridia Mary [facility] Start: 02-21-2024 End: 02-21-2024 ambulatory Yuridia Hernandez Facility:[facility] Start: 02-11-2024 End: 02-11-2024 ambulatory Yuridia Hernandez Facility:[facility] Start: 02-03-2024 ambulatory Erika Deras ty:[facility] Start: 02-03-2024 End: 02-04-2024 Evaluation and management of inpatient John Anders Facility:[facility] Start: 01-22-2024 End: 01-22-2024 ambulatory Manuela Washburn Facility:[facility] Start: 01-10-2024 End: 01-10-2024 Emergency department patient visit Yuridia Hernandez Facility:[facility] Start: 01-09-2024 End: 01-09-2024 ambulatory Talya Nichols Facility:[facility] Start: 01-09-2024 End: 01-09-2024 ambulatory Liliya Yomiosvaldomelodie Facility:[facility] Start: 12-27-2023 ambulatory Fredy Joy Facility :[facility] Start: 12-26-2023 ambulatory Yuridia Hernandez [facility] Start: 12-26-2023 End: 12-28-2023 Evaluation and management of inpatient Yuridia Hernandez Facility:[facility] Start: 12-13-2023 End: 12-13-2023 ambulatory Manuela Wu Facility:[facility] Start: 12-10-2023 ambulatory Fredy Joy Facility :[facility] Start: 12-10-2023 ambulatory Yuridia Hernandez [facility] Start: 12-08-2023 ambulatory Alexeyisaac Jayshree [facility] Start: 12-06-2023 End: 12-10-2023 Evaluation and management of inpatient Jayapracaities Stephany Facility:[facility] Start: 12-06-2023 ambulatory Anderson Hammond Facil [facility]y:[facility] Start: 12-05-2023 End: 12-05-2023 ambulatory Yuridia Hernandez Facility:[facility] Start: 12-02-2023 End: 12-02-2023 Emergency department patient visit Yuridia Hernandez Facility:[facility] Start: 11-23-2023 End: 11-23-2023 ambulatory Yuridia Hernandez Facility:[facility] Start: 11-21-2023 ambulatory Yuridia Hernandez Facility:[facility] Start: 11-18-2023 ambulatory Sarai Shannon Koram Facility :[facility] Start: 11-18-2023 End: 11-20-2023 Evaluation and management of inpatient Sarai Shannon Koram Facility:[facility] Start: 11-16-2023 Encounter for general adult medical examination without abnormal findings Yuridia Hernandez [facility] Start: 11-15-2023 ambulatory Yuridia Hernandez [facility] Start: 11-14-2023 End: 11-16-2023 Evaluation and management of inpatient Michelle Wu Facility:[facility] Start: 11-14-2023 ambulatory Michelle Washburn [facility] Start: 11-07-2023 End: 11-07-2023 ambulatory Yuridia Hernandez Facility:[facility] Start: 10-24-2023 ambulatory Talya Nichols Facility :[facility] Start: 08-17-2023 ambulatory TALYA NICHOLS DO Facil ity:[facility] Start: 08-17-2023 End: 08-21-2023 Outreach Lab TALYA NICHOLS DO [facility] Start: 07-03-2023 End: 07-07-2023 ambulatory TALYA NICHOLS DO Facility:[facility] Start: 06-27-2023 End: 06-27-2023 Emergency department patient visit Dr. Talya Nichols Work Phone: [facility] Work Phone: Start: 06-08-2023 End: 06-11-2023 Evaluation and management of inpatient AHMET CLARK MD [facility] Start: 06-08-2023 End: 06-08-2023 Emergency department patient visit DR MARGARET RILEY DO [facility] Start: 06-08-2023 End: 06-08-2023 ambulatory TALYA NICHOLS DO Facility:[facility] Start: 06-08-2023 End: 06-08-2023 Patient encounter procedure TALYA NICHOLS DO [facility] Start: 05-25-2023 End: 05-25-2023 Emergency department patient visit ANNY DA SILVA MD [facility] Start: 05-24-2023 End: 05-24-2023 ambulatory TALYA NICHOLS DO Facility:[facility] Start: 05-24-2023 End: 05-24-2023 Patient encounter procedure TALYA NICHOLS [facility] Start: 05-17-2023 End: 05-17-2023 ambulatory TALYA NICHOLS Facility:[facility] Start: 05-17-2023 End: 05-17-2023 Patient encounter procedure TALYA NICHOLS DO [facility] Start: 05-07-2023 End: 05-08-2023 ambulatory TALYA MAGDALENA DO Facility:[facility] Start: 05-07-2023 End: 05-08-2023 Observation DELIA JEFFERSON COAGULATING DRYING SUPERVISOR-BOILER HOUSE OPERATOR [facility] Start: 05-04-2023 End: 05-10-[address] Talya Nichols Work Phone: [facility] Work Phone: Start: 05-04-2023 End: 05-10-[address] Talya Nichols Work Phone: [facility] Start: 04-30-2023 End: 05-01-2023 Emergency department patient visit Dr. Talya Nichols Work Phone: [facility] Work Phone: Start: 04-26-2023 Non-patient / Non-visit Dr. Talya Nichols Work Phone: [facility] Work Phone: Start: 04-26-2023 Non-patient / Non-visit Dr. Talya Nichols Work Phone: [facility] Start: 04-25-2023 Non-patient / Non-visit Dr. Talya Nichols Work Phone: [facility] Work Phone: Start: 04-25-2023 Non-patient / Non-visit Dr. Talya Nichols Work Phone: [facility] Start: 04-24-2023 Non-patient / Non-visit Dr. Talya Nichols Work Phone: [facility] Work Phone: Start: 04-24-2023 End: 04-26-2023 Evaluation and management of inpatient Dr. Talya Nichols Work Phone: [facility] Work Phone: Start: 04-23-2023 End: 04-23-[address] Talya Nichols Work Phone: [facility] Work Phone: Start: 04-13-2023 End: 04-13-2023 ambulatory TALYA NICHOLS DO Facility:[facility] Start: 04-13-2023 End: 04-13-2023 Patient encounter procedure TALYA NICHOLS DO [facility] Start: 04-07-2023 End: 04-07-2023 Emergency department patient visit Dr. Talya Nichols Work Phone: [facility] Work Phone: Start: 04-02-2023 End: 04-02-[address] Talya Nichols Work Phone: [facility] Work Phone: Start: 04-02-2023 Non-patient / Non-visit Dr. Talya Nichols Work Phone: [facility] Start: 04-02-2023 End: 04-02-2023 Admission to same day surgery center Dr. Talya Nichols Work Phone: [facility] Work Phone: Start: 04-02-2023 End: 04-02-[address] Talya Nichols Work Phone: [facility] Work Phone: Start: 03-21-2023 End: 03-21-2023 Patient encounter procedure KHURRAM ERICKSON MD [facility] Start: 03-21-2023 End: 03-21-2023 ambulatory TALYA NICHOLS DO Facility:[facility] Start: 03-09-2023 Non-patient / Non-visit Dr. Talya Nichols Work Phone: [facility] Start: 03-09-2023 Non-patient / Non-visit Dr. Talya Nichols Work Phone: [facility] Work Phone: Start: 03-08-2023 Non-patient / Non-visit Dr. Talya Nichols Work Phone: [facility] Start: 03-08-2023 Non-patient / Non-visit Dr. Talya Nichols Work Phone: [facility] Work Phone: Start: 03-07-2023 Non-patient / Non-visit Dr. Talya Nichols Work Phone: [facility] Start: 03-07-2023 End: 03-09-2023 Evaluation and management of inpatient Dr. Talya Nichols Work Phone: [facility] Work Phone: Start: 02-28-2023 End: 02-28-2023 ambulatory TALYA NICHOLS DO Facility:[facility] Start: 02-28-2023 End: 02-28-2023 Patient encounter procedure TALYA NICHOLS DO [facility] Start: 02-21-2023 End: 02-25-2023 ambulatory TALYA NICHOLS DO Facility:[facility] Start: 02-21-2023 End: 02-21-[address] Talya Nichols Work Phone: [facility] Work Phone: Start: 02-20-2023 End: 02-20-2023 ambulatory TALYA NICHOLS DO Facility:[facility] Start: 02-20-2023 End: 02-20-2023 Patient encounter procedure KHURRAM ERICKSON MD [facility] Start: 02-15-2023 Non-patient / Non-visit Dr. Talya Nichols Work Phone: [facility] Work Phone: Start: 02-14-2023 Non-patient / Non-visit Dr. Talya Nichols Work Phone: [facility] Work Phone: Start: 02-14-2023 Non-patient / Non-visit Dr. Talya Nichols Work Phone: [facility] Start: 02-13-2023 End: 02-15-2023 Evaluation and management of inpatient Dr. Talya Nichols Work Phone: [facility] Work Phone: Start: 02-08-2023 End: 02-08-2023 Emergency department patient visit Dr. Talya Nichols Work Phone: [facility] Work Phone: Start: 02-07-2023 End: 02-07-2023 ambulatory TALYA NICHOLS DO Facility:[facility] Start: 02-07-2023 End: 02-07-2023 Patient encounter procedure TALYA NICHOLS DO [facility] Start: 02-02-2023 End: 02-02-2023 ambulatory TALYA NICHOLS DO Facility:[facility] Start: 02-02-2023 End: 02-02-2023 Patient encounter procedure TALYAMICHAEL NICHOLS DO [facility] Start: 01-23-2023 End: 01-23-2023 ambulatory TALYA NICHOLS DO Facility:[facility] Start: 01-19-2023 End: 01-19-2023 ambulatory TALYA NICHOLS DO Facility:[facility] Start: 01-19-2023 End: 01-19-2023 Patient encounter procedure TALYA Brenner MAGDALENA DO [facility] Start: 01-19-2023 End: 01-19-2023 Well adult monitoring check done TALYA NICHOLS DO [facility] Start: 01-19-2023 End: 01-19-2023 ambulatory TALYA NICHOLS DO Facility:[facility] Start: 12-11-2022 End: 12-11-[address] Talya Nichols Work Phone: [facility] Work Phone: Start: 12-11-2022 End: 12-11-[address] Talya Nichols Work Phone: [facility] Start: 11-28-2022 End: 11-28-2022 ambulatory ANCA TY MD Facility:[facility] Start: 11-28-2022 End: 11-28-2022 Patient encounter procedure ANCA TY MD [facility] Start: 11-24-2022 End: 11-24-2022 ambulatory MELONIE BULLARD COAGULATING DRYING SUPERVISOR - BOILER HOUSE OPERATOR Facility:[facility] Start: 11-24-2022 End: 11-24-2022 Patient encounter procedure MELONIE BULLARD COAGULATING DRYING SUPERVISOR - BOILER HOUSE OPERATOR [facility] Start: 11-18-2022 Non-patient / Non-visit Dr. Talya Nichols Work Phone: [facility] Work Phone: Start: 11-17-2022 Non-patient / Non-visit Dr. Talya Nichols Work Phone: [facility] Work Phone: Start: 11-16-2022 Non-patient / Non-visit Dr. Talya Nichols Work Phone: [facility] Start: 11-16-2022 End: 11-18-2022 Evaluation and management of inpatient [facility] Work Phone: Start: 11-08-2022 End: 11-08-2022 ambulatory TALYA NICHOLS DO Facility:[facility] Start: 11-08-2022 End: 11-08-2022 Patient encounter procedure TALYA NICHOLS DO [facility] Start: 10-31-2022 End: 10-31-2022 ambulatory TALYA NICHOLS DO Facility:[facility] Start: 10-24-2022 End: 10-24-2022 ambulatory TALYA NICHOLS DO Facility:[facility] Start: 10-24-2022 End: 10-24-2022 Patient encounter procedure TALYA NICHOLS DO [facility] Start: 10-22-2022 End: 10-23-2022 Emergency department patient visit Dr. Talya Nichols Work Phone: [facility] Work Phone: Start: 10-19-2022 End: 10-19-2022 ambulatory TALYA NICHOLS DO Facility:[facility] Start: 07-06-2022 End: 07-06-[address] Talya Nichols Work Phone: [facility] Work Phone: Start: 06-16-2022 End: 06-16-2022 Patient encounter procedure PACO VAZQUEZ COAGULATING DRYING SUPERVISOR-BOILER HOUSE OPERATOR [facility] Start: 06-09-2022 End: 06-09-2022 Patient encounter procedure PACO VAZQUEZ COAGULATING DRYING SUPERVISOR-BOILER HOUSE OPERATOR [facility] Start: 06-06-2022 End: 06-06-2022 Patient encounter procedure TALYA NICHOLS DO [facility] Start: 05-25-2022 Non-patient / Non-visit Dr. Talya Nichols Work Phone: [facility] [facility] Start: 05-24-2022 End: 05-26-2022 Evaluation and management of inpatient Dr. Talya Nichols Work Phone: [facility] Start: 05-24-2022 End: 05-26-[address] Talya Nichols Work Phone: [facility] Work Phone: Start: 05-02-2022 End: 05-02-[address] Talya Nichols Work Phone: [facility] Start: 04-13-2022 Non-patient / Non-visit Dr. Talya Nichols Work Phone: [facility] Start: 04-12-2022 Non-patient / Non-visit Dr. Talya Nichols Work Phone: [facility] Start: 04-11-2022 Non-patient / Non-visit Dr. Talya Nichols Work Phone: [facility] Start: 04-11-2022 End: 04-13-2022 Evaluation and management of inpatient Dr. Talya Nichols Work Phone: [facility] Start: 03-22-2022 End: 03-22-2022 Patient encounter procedure TALYA NICHOLS DO [facility] Start: 03-16-2022 Non-patient / Non-visit Dr. Talya Nichols Work Phone: [facility] Start: 03-16-2022 Non-patient / Non-visit Dr. Talya Nichols Work Phone: [facility] Start: 03-15-2022 Non-patient / Non-visit Dr. Talya Nichols Work Phone: [facility] Start: 03-15-2022 Non-patient / Non-visit Dr. Talya Nichols Work Phone: [facility] Start: 03-14-2022 Non-patient / Non-visit Dr. Talya Nichols Work Phone: [facility] Start: 03-14-2022 Non-patient / Non-visit Dr. Talya Nichols Work Phone: [facility] Start: 03-13-2022 Non-patient / Non-visit Dr. Talya Nichlos Work Phone: [facility] Start: 03-13-2022 Non-patient / Non-visit Dr. Talya Nichols Work Phone: [facility] Start: 03-12-2022 Non-patient / Non-visit Dr. Talya Nichols Work Phone: [facility] Start: 03-12-2022 Non-patient / Non-visit Dr. Talya Nichols Work Phone: [facility] Start: 03-12-2022 End: 03-16-2022 Evaluation and management of inpatient Dr. Talya Nichols Work Phone: [facility] Start: 01-03-2022 End: 01-03-2022 Patient encounter procedure PACO VAZQUEZ COAGULATING DRYING SUPERVISOR-BOILER HOUSE OPERATOR [facility] Start: 12-16-2021 Non-patient / Non-visit Dr. Talya Nichols Work Phone: [facility] Start: 12-15-2021 Non-patient / Non-visit Dr. Talya Nichols Work Phone: [facility] Start: 12-14-2021 End: 12-16-2021 Non-patient / Non-visit Dr. Talya Nichols Work Phone: [facility] Start: 12-13-2021 End: 12-16-2021 Evaluation and management of inpatient Dr. Talya Nichols Work Phone: [facility] Start: 12-13-2021 End: 12-16-[address] Talya Nichols Work Phone: [facility] Work Phone: Start: 12-08-2021 End: 12-08-2021 Emergency department patient visit [facility] Start: 11-24-2021 End: 11-24-2021 Patient encounter procedure TALYA NICHOLS DO [facility] Start: 04-23-2021 End: 04-23-2021 Emergency department patient visit RADHA YADAV MD [facility] Procedures Date Procedure Procedure Detail Performing [...] Work Phone: Start: 06-09-2023 Echocardiography DAMARIS POLLARD NADIABOILER HOUSE OPERATOR Comment on above: (06/09/2023) Summary: 1. [...] Phone: Start: 03-15-2022 Cardiac catheterization MELONIE BULLARD COAGULATING DRYING SUPERVISOR - BOILER HOUSE OPERATOR Comment on above: Left main with 25% stenosis, LAD with mi ld luminal irregularities , diagonal 1 with 50% stenosis, LCx and RCA with mild luminal irregularities Start: 03-12-2022 Plain chest X-ray Dr. Talya Nichols Work Phone: Start: 03-12-2022 Echocardiography MELONIE BULLARD COAGULATING DRYING SUPERVISOR - BOILER HOUSE OPERATOR Comment on above: EF 65% Start: 12-15-2021 CT angiography of chest with contrast Dr. Talya Nichols Work Phone: Start: 12-14-[address] Talya Raphael Work Phone: Start: 12-08-2021 Plain x-ray of elbow Start: 12-08-2021 Radiography of ankle Start: 09-29-2018 Extraction of cataract RAHDA Kramer MD Comment on above: OU Respiratory [...] Activity Detail Author Start: 06-25-2024 Patient discharge [facility] Start: 06-24-2024 [facility] Start: 06-23-2024 Application of elastic bandage [facility] Start: 06-23-2024 Assessment of risk of venous thromboembolism [facility] Start: 06-23-2024 Care regimes management [facility] Start: 06-23-2024 Fall prevention [facility] Start: 06-23-2024 Inhalation therapy procedure [facility] Start: 06-23-2024 Insertion of catheter into peripheral vein [facility] Start: 06-23-2024 Introduction of urinary catheter [facility] Start: 06-23-2024 Measuring intake and output [facility] Start: 06-23-2024 Methicillin resistant Staphylococcus aureus screening test [facility] Start: 06-23-2024 Notification of physician [facility] Start: 06-23-2024 Oxygen therapy [facility] Start: 06-23-2024 Providing care according to standard [facility] Start: 06-23-2024 Provision of activity privileges [facility] Start: 06-23-2024 Referral to occupational therapist [facility] Start: 06-23-2024 Referral to service [facility] Start: 06-23-2024 End: 06-23-2024 [facility] Start: 06-23-2024 Following clinical pathway protocol [facility] Start: 06-23-2024 Verification routine [facility] Start: 06-23-2024 Respiratory pathogens DNA and RNA panel - Respiratory specimen by JOSH with probe detection [facility] Start: 06-23-2024 Admission procedure [facility] Start: 06-23-2024 Hospital admission, emergency, from emergency room, medical nature [facility] Start: 06-23-2024 [facility] Start: 03-02-2024 Patient discharge [facility] Start: 02-29-2024 [facility] Start: 02-29-2024 Referral to gastroenterology service [facility] Start: 02-29-2024 Application of intermittent pneumatic compression device [facility] Start: 02-28-2024 Following clinical pathway protocol [facility] Start: 02-28-2024 Transfusion of blood product [facility] Start: 02-28-2024 Assessment of risk of venous thromboembolism [facility] Start: 02-28-2024 Care regimes management [facility] Start: 02-28-2024 Insertion of catheter into peripheral vein [facility] Start: 02-28-2024 Measuring intake and output [facility] Start: 02-28-2024 Notification of physician [facility] Start: 02-28-2024 Oxygen therapy [facility] Start: 02-28-2024 Providing care according to standard [facility] Start: 02-28-2024 Provision of activity privileges [facility] Start: 02-28-2024 Referral to occupational therapist [facility] Start: 02-28-2024 Referral to service [facility] Start: 02-28-2024 End: 02-28-2024 [facility] Start: 02-28-2024 Admission procedure [facility] Start: 02-28-2024 Administration of blood product [facility] Start: 02-28-2024 Inhalation therapy procedure [facility] Start: 02-28-2024 Patient referral to [facility] Start: 06-27-2023 [facility] Start: 05-01-2023 [facility] Start: 04-26-2023 Patient discharge [facility] Start: 04-25-2023 Referral to service [facility] Start: 04-25-2023 Referral to pick and shovel worker [facility] Start: 04-25-2023 Inhalation therapy procedure [facility] Start: 04-24-2023 Assessment of risk of venous thromboembolism [facility] Start: 04-24-2023 Care regimes management [facility] Start: 04-24-2023 Catheterization of vein [facility] Start: 04-24-2023 Elevation of affected extremity [facility] Start: 04-24-2023 Insertion of catheter into peripheral vein [facility] Start: 04-24-2023 Measuring intake and output [facility] Start: 04-24-2023 Notification of physician [facility] Start: 04-24-2023 Patient education [facility] Start: 04-24-2023 Patient referral to [facility] Start: 04-24-2023 Providing care according to standard [facility] Start: 04-24-2023 Provision of activity privileges [facility] Start: 04-24-2023 Referral to occupational therapist [facility] Start: 04-24-2023 Referral to service [facility] Start: 04-24-2023 [facility] Start: 04-24-2023 Following clinical pathway protocol [facility] Start: 04-24-2023 Verification routine [facility] Start: 04-24-2023 Admission procedure [facility] Start: 04-24-2023 Electrocardiographic procedure [facility] Start: 04-24-2023 Hospital admission, emergency, from emergency room, medical nature [facility] Start: 04-24-2023 Oxygen therapy [facility] Start: 04-24-2023 [facility] Start: 04-07-2023 [facility] Start: 04-07-2023 [facility] Start: 04-02-2023 Egd insert guide wire dilator passage esophagus EGD GUIDE WIRE INSERTION [facility] Start: 04-02-2023 Patient discharge [facility] Start: 03-09-2023 Enteric Bacteriology Enteric Bacteriology [facility] Start: 03-09-2023 Patient discharge [facility] Start: 03-08-2023 Referral to service [facility] Start: 03-08-2023 Care regimes management [facility] Start: 03-08-2023 Notification of physician [facility] Start: 03-08-2023 [facility] Start: 03-08-2023 Enteric precautions [facility] Start: 03-08-2023 Inhalation therapy procedure [facility] Start: 03-07-2023 Following clinical pathway protocol [facility] Start: 03-07-2023 Application of intermittent pneumatic compression device [facility] Start: 03-07-2023 Assessment of risk of venous thromboembolism [facility] Start: 03-07-2023 Insertion of catheter into peripheral vein [facility] Start: 03-07-2023 Oxygen therapy [facility] Start: 03-07-2023 Providing care according to standard [facility] Start: 03-07-2023 Provision of activity privileges [facility] Start: 03-07-2023 Referral to gastroenterology service [facility] Start: 03-07-2023 Referral to occupational therapist [facility] Start: 03-07-2023 Referral to service [facility] Start: 03-07-2023 [facility] Start: 03-07-2023 Verification routine [facility] Start: 03-07-2023 Admission procedure [facility] Start: 03-07-2023 Leukocyte reduced red blood cells [facility] Start: 03-07-2023 [facility] Start: 03-07-2023 Hospital admission, emergency, from emergency room, medical nature [facility] Start: 03-07-2023 Administration of blood product [facility] Start: 03-07-2023 [facility] Start: 02-15-2023 Patient discharge [facility] Start: 02-14-2023 Referral to occupational therapist [facility] Start: 02-14-2023 Referral to service [facility] Start: 02-14-2023 Thyroid stimulating hormone measurement [facility] Start: 02-14-2023 [facility] Start: 02-14-2023 Administration of blood product [facility] Start: 02-14-2023 Following clinical pathway protocol [facility] Start: 02-14-2023 Consultation [facility] Start: 02-14-2023 Inhalation therapy procedure [facility] Start: 02-13-2023 Oxygen therapy [facility] Start: 02-13-2023 Care regimes management [facility] Start: 02-13-2023 Notification of physician [facility] Start: 02-13-2023 Provision of activity privileges [facility] Start: 02-13-2023 Assessment of risk of venous thromboembolism [facility] Start: 02-13-2023 Insertion of catheter into peripheral vein [facility] Start: 02-13-2023 Measuring intake and output [facility] Start: 02-13-2023 Providing care according to standard [facility] Start: 02-13-2023 Respiratory therapy [facility] Start: 02-13-2023 Verification routine [facility] Start: 02-13-2023 End: 02-13-2023 [facility] Start: 02-13-2023 Admission procedure [facility] Start: 02-13-2023 End: 02-13-2023 Blood culture [facility] Start: 02-13-2023 Pulmonary ventilation perfusion study [facility] Start: 02-13-2023 [facility] Start: 02-13-2023 Bacteria identified in Blood by Culture Blood Culture [facility] Start: 02-08-2023 [facility] Start: 02-08-2023 [facility] Start: 11-18-2022 Patient discharge [facility] Start: 11-17-2022 Referral to service [facility] Start: 11-17-2022 Referral to service [facility] Start: 11-17-2022 Oxygen therapy [facility] Start: 11-17-2022 Notification of physician [facility] Start: 11-17-2022 Referral to gastroenterology service [facility] Start: 11-17-2022 Care regimes management [facility] Start: 11-17-2022 Administration of blood product [facility] Start: 11-16-2022 Care planning and problem solving actions [facility] Start: 11-16-2022 Transfusion of blood product [facility] Start: 11-16-2022 [facility] Start: 11-16-2022 Administration of blood product [facility] Start: 11-16-2022 Following clinical pathway protocol [facility] Start: 11-16-2022 Leukocyte reduced red blood cells [facility] Start: 11-16-2022 [facility] Start: 11-16-2022 Admission procedure [facility] Start: 11-16-2022 Administration of blood product [facility] Start: 11-16-2022 [facility] Start: 11-16-2022 Patient referral to dietitian [facility] Start: 10-22-2022 [facility] Start: 05-26-2022 Patient discharge [facility] Start: 05-24-2022 Dual pressure spontaneous ventilation support [facility] Start: 05-24-2022 Fluid restriction [facility] Start: 05-24-2022 Following clinical pathway protocol [facility] Start: 05-24-2022 Assessment of risk of venous thromboembolism [facility] Start: 05-24-2022 Care regimes management [facility] Start: 05-24-2022 Incentive spirometry [facility] Start: 05-24-2022 Insertion of catheter into peripheral vein [facility] Start: 05-24-2022 Measuring intake and output [facility] Start: 05-24-2022 Oxygen therapy [facility] Start: 05-24-2022 Providing care according to standard [facility] Start: 05-24-2022 Provision of activity privileges [facility] Start: 05-24-2022 Referral to occupational therapist [facility] Start: 05-24-2022 Referral to service [facility] Start: 05-24-2022 [facility] Start: 05-24-2022 Verification routine [facility] Start: 05-24-2022 Admission procedure [facility] Start: 05-24-2022 Inhalation therapy procedure [facility] Start: 04-13-2022 Patient discharge [facility] Start: 04-11-2022 Following clinical pathway protocol [facility] Start: 04-11-2022 Assessment of risk of venous thromboembolism [facility] Start: 04-11-2022 Catheterization of vein [facility] Start: 04-11-2022 Incentive spirometry [facility] Start: 04-11-2022 Insertion of catheter into peripheral vein [facility] Start: 04-11-2022 Measuring intake and output [facility] Start: 04-11-2022 Oxygen therapy [facility] Start: 04-11-2022 Providing care according to standard [facility] Start: 04-11-2022 Provision of activity privileges [facility] Start: 04-11-2022 Care regimes management [facility] Start: 04-11-2022 Notification of physician [facility] Start: 04-11-2022 Admission procedure [facility] Start: 04-11-2022 End: 04-11-2022 [facility] Start: 03-16-2022 Patient discharge [facility] Start: 03-15-2022 Patient referral [facility] Work Phone: Start: 03-15-2022 End: 03-15-2022 [facility] Start: 03-15-2022 Notification of physician [facility] Start: 03-15-2022 Provision of activity privileges [facility] Start: 03-15-2022 Scheduling [facility] Start: 03-15-2022 Taking patient vital signs [facility] Start: 03-15-2022 Vascular disease risk assessment [facility] Start: 03-15-2022 Inhalation therapy procedure [facility] Start: 03-14-2022 Catheterization of vein [facility] Start: 03-14-2022 Medication not administered [facility] Start: 03-14-2022 Notification of physician [facility] Start: 03-14-2022 Preoperative care [facility] Start: 03-14-2022 [facility] Start: 03-14-2022 [facility] Start: 03-13-2022 Catheterization of vein [facility] Start: 03-13-2022 Medication not administered [facility] Start: 03-13-2022 Notification of physician [facility] Start: 03-13-2022 Preoperative care [facility] Start: 03-13-2022 [facility] Start: 03-12-2022 Referral to service [facility] Start: 03-12-2022 Referral to occupational therapist [facility] Start: 03-12-2022 Referral to pick and shovel worker [facility] Start: 03-12-2022 Patient referral to dietitian [facility] Start: 03-12-2022 Assessment of risk of venous thromboembolism [facility] Start: 03-12-2022 Care regimes management [facility] Start: 03-12-2022 Elevation of affected extremity [facility] Start: 03-12-2022 Fluid restriction [facility] Start: 03-12-2022 Incentive spirometry [facility] Start: 03-12-2022 Insertion of catheter into peripheral vein [facility] Start: 03-12-2022 Measuring intake and output [facility] Start: 03-12-2022 Notification of physician [facility] Start: 03-12-2022 Oxygen therapy [facility] Start: 03-12-2022 Patient education [facility] Start: 03-12-2022 Providing care according to standard [facility] Start: 03-12-2022 Provision of activity privileges [facility] Start: 03-12-2022 Referral to [facility] Start: 03-12-2022 [facility] Start: 03-12-2022 Following clinical pathway protocol [facility] Start: 03-12-2022 Admission procedure [facility] Start: 12-16-2021 Patient discharge [facility] Start: 12-14-2021 Application of intermittent pneumatic compression device [facility] Start: 12-13-2021 Consultation for treatment [facility] Start: 12-13-2021 Assessment of risk of venous thromboembolism [facility] Start: 12-13-2021 Care regimes management [facility] Start: 12-13-2021 Fall prevention [facility] Start: 12-13-2021 Incentive spirometry [facility] Start: 12-13-2021 Inhalation therapy procedure [facility] Start: 12-13-2021 Insertion of catheter into peripheral vein [facility] Start: 12-13-2021 Introduction of urinary catheter [facility] Start: 12-13-2021 Measuring intake and output [facility] Start: 12-13-2021 Oxygen therapy [facility] Start: 12-13-2021 Providing care according to standard [facility] Start: 12-13-2021 Provision of activity privileges [facility] Start: 12-13-2021 Referral to occupational therapist [facility] Start: 12-13-2021 Referral to service [facility] Start: 12-13-2021 [facility] Start: 12-13-2021 Following clinical pathway protocol [facility] Start: 12-13-2021 Verification routine [facility] Work Phone: Start: 12-13-2021 Admission procedure [facility] Start: 12-13-2021 [facility] Start: 12-08-2021 Inhalation therapy procedure [facility] Work Phone: Alanine aminotransfe rase [Enzymatic activity/volume] in Serum or Plasma [facility] Albumin [Mass/volume ] in Serum or Plasma [facility] Alkaline phosphatase [Enzymatic activity/volume] in Serum or Plasma [facility] Anion gap measurement [facility] Aspartate aminotrans ferase [Enzymatic activity/volume] in Serum or Plasma [facility] Bilirubin, total measurement [facility] BUN/Creatinine ratio [facility] Calcium [Mass/volume ] in Serum or Plasma [facility] Carbon dioxide, tota l [Moles/volume] in Serum or Plasma [facility] CBC W Auto Different ial panel - Blood [facility] Chloride [Moles/volu me] in Serum or Plasma [facility] Cobalamin (Vitamin B 12) [Mass/volume] in Serum or Plasma [facility] Comprehensive metabo lic 2000 panel - Serum or Plasma [facility] Creatinine [Moles/vo lume] in Serum or Plasma [facility] Ferritin [Mass/volum e] in Serum or Plasma [facility] Folate [Moles/volume ] in Serum or Plasma [facility] Gastrointestinal pat hogens panel - Stool by JOSH with probe detection [facility] Giardia lamblia Ag [ Presence] in Stool by Immunoassay [facility] Glucose [Mass/volume ] in Serum or Plasma [facility] Hematocrit [Volume F raction] of Blood [facility] Hemoglobin [Mass/vol ume] in Blood [facility] Iron and Iron bindin g capacity panel - Serum or Plasma [facility] Leukocytes [#/volume] in Blood [facility] Magnesium [Mass/volu me] in Serum or Plasma [facility] Magnesium measurement [facility] Magnesium measurement [facility] Mean corpuscular hem oglobin concentration determination [facility] Mean corpuscular hem oglobin determination [facility] Measurement of renal function [facility] Neutrophil count [facility] Neutrophil percent differential count [facility] Patient Education [facility] Work Phone: Patient referral [facility] Work Phone: Platelets [#/volume] in Blood [facility] Potassium [Moles/vol ume] in Serum or Plasma [facility] Red blood cell count [facility] Red cell distributio n width determination [facility] Reticulocyte count [facility] Serum inorganic phos phate measurement [facility] Sodium [Moles/volume ] in Serum or Plasma [facility] Total protein measurement [facility] Troponin T.cardiac [Mass/volume] in Serum or Plasma by High sensitivity method [facility] Urea nitrogen [Mass/ volume] in Serum or Plasma [facility] Immunizations Immunization Date Immunization Notes Care Provider [facility] 01-19-2023 Pneumococcal conjuga te PCV20, polysaccharide [id number] conjugate, adjuvant, PF; Translations: [Prevnar 20] TALYA NICHOLS DO [facility] 12-14-2022 influenza, injectabl e, quadrivalent, preservative free Dr. Yuridia Hernandez MD Work Phone: [facility] 12-14-2022 influenza, high dose seasonal, preservative-free; Translations: [Fluad Quadrivalent PF ] TALYA NICHOLS DO [facility] 12-28-[address] CovArrive[address] t Booster [address]. Talya Nichols Work Phone: [facility] 12-28-2021 SARS-CoV-2 (CV19)mRNA-[id number] bivalent vac TALYA NICHOLS DO [facility] 12-28-2021 SARSCoV2 (CV19)mRNA-[id number]([id number] bival spencer TALYA NICHOLS DO [facility] 12-27-2021 influenza virus vacc ine, unspecified formulation TALYA NICHOLS DO [facility] 12-27-2021 influenza, injectabl e, quadrivalent, preservative free [facility] 12-27-2021 influenza, seasonal, injectable Dr. Talya Nichols Work Phone: [facility] 01-10-2021 SARS-CoV-2 mRNA (tozinameran) vaccine RADHA YADAV MD [facility] 11-08-2020 influenza virus vacc ine, unspecified formulation RADHA YADAV MD [facility] 06-19-2020 SARS-CoV-2 mRNA (tozinameran) vaccine RADHA YADAV MD [facility] 05-25-2020 SARS-CoV-2 mRNA (tozinameran) vaccine RADHA YADAV MD [facility] 11-19-2019 influenza virus vacc ine, unspecified formulation RADHA YADAV MD [facility] 12-23-2018 influenza virus vacc ine, unspecified formulation RADHA YADAV MD [facility] 01-31-2016 pneumococcal polysaccharide vaccine, 23 valent RADHA YADAV MD [facility] 07-31-2014 pneumococcal polysaccharide vaccine, 23 valent RADHA YADAV MD [facility] 12-09-2009 tetanus and diphther ia toxoids, adsorbed, preservative free, for adult use (5 Lf of tetanus toxoid and 2 Lf of diphtheria toxoid) RADHA YADAV MD [facility] Payers Date Payer Category Payer Self-pay [id number] 2023 Medicare [id number] 2013 Medicare [id number] 1940 Unknown [id number] 2.16.8 40.1.027863.3.579.2. 1939 Unknown [id number] 2.16.8 40.1.200682.3.579.2.627 1939 Unknown [id number] 2.16.8 40.1.776907.3.579.2.7 1939 Unknown [id number] 2.16.8 40.1.014008.3.579.2.627 1939 Unknown [id number] 2.16.8 40.1.573866.3.579.2.7 1939 Unknown [id number] 2.16.8 40.1.339100.3.579.2.627 1939 Unknown [id number] 2.16.8 40.1.950443.3.579.2.627 1939 Unknown [id number] 2.16.8 40.1.660204.3.579.2.627 1939 Unknown [id number] 2.16.8 40.1.983902.3.579.2.627 1939 Unknown [id number] 2.16.8 40.1.149884.3.579.2.627 1939 Unknown [id number] 2.16.8 40.1.050414.3.579.2.62 1939 Unknown [id number] 2.16.8 40.1.135853.3.579.2.62 1939 Unknown [id number] 2.16.8 40.1.973267.3.579.2.62 1939 Unknown [id number] 2.16.8 40.1.237188.3.579.2.62 1939 Unknown [id number] 2.16.8 40.1.456974.3.579.2.62 1939 Unknown [id number] 2.16.8 40.1.940839.3.579.2.627 1939 Unknown [id number] 2.16.8 40.1.501145.3.579.2.62 1939 Unknown [id number] 2.16.8 40.1.446931.3.579.2.627 1939 Unknown [id number] 2.16.8 40.1.556082.3.579.2.62 1939 Unknown [id number] 2.16.8 40.1.407427.3.579.2.627 1939 Unknown [id number] 2.16.8 40.1.960167.3.579.2.627 1939 Unknown [id number] 2.16.8 40.1.935262.3.579.2.627 1939 Unknown [id number] 2.16.8 40.1.476172.3.579.2.627 1939 Unknown [id number] 2.16.8 40.1.117661.3.579.2.62 1939 Unknown [id number] 2.16.8 40.1.864058.3.579.2.627 1939 Unknown [id number] 2.16.8 40.1.526682.3.579.2.62 1939 Unknown [id number] 2.16.8 40.1.259751.3.579.2.627 1939 Unknown [id number] 2.16.8 40.1.928950.3.579.2.627 Unknown [id number] 2.16.8 40.1.631966.3.579.2.462 Unknown [id number] 2.16.8 40.1.686933.3.579.2.462 Unknown [id number] 2.16.8 40.1.430646.3.579.2.462 Unknown [id number] 2.16.8 40.1.974762.3.579.2.462 Unknown [id number] 2.16.8 40.1.357829.3.579.2.462 Unknown [id number] 2.16.8 40.1.535665.3.579.2.462 Unknown [id number] 2.16.8 40.1.290204.3.579.2.462 Unknown [id number] 2.16.8 40.1.204189.3.579.2.462 Unknown [id number] 2.16.8 40.1.610736.3.579.2.462 Unknown [id number] 2.16.8 40.1.992793.3.579.2.462 Unknown [id number] 2.16.8 40.1.110912.3.579.2.462 Unknown [id number] 2.16.8 40.1.370960.3.579.2.462 Unknown [id number] 2.16.8 40.1.150627.3.579.2.462 Unknown [id number] 2.16.8 40.1.700165.3.579.2.462 Unknown [id number] 2.16.8 40.1.138379.3.579.2.462 Unknown [id number] 2.16.8 40.1.496009.3.579.2.462 Unknown [id number] 2.16.8 40.1.052404.3.579.2.462 Unknown [id number] 2.16.8 40.1.868564.3.579.2.462 Unknown [id number] 2.16.8 40.1.954610.3.579.2.462 Unknown [id number] 2.16.8 40.1.039064.3.579.2.462 Unknown [id number] 2.16.8 40.1.862509.3.579.2.462 Unknown [id number] 2.16.8 40.1.906067.3.579.2.462 Unknown [id number] 2.16.8 40.1.523055.3.579.2.462 Unknown [id number] 2.16.8 40.1.814838.3.579.2.462 Unknown [id number] 2.16.8 40.1.791295.3.579.2.462 Unknown [id number] 2.16.8 40.1.934073.3.579.2.462 Unknown [id number] 2.16.8 40.1.998379.3.579.2.462 Unknown [id number] 2.16.8 40.1.646064.3.579.2.462 Unknown [id number] 2.16.8 40.1.978033.3.579.2.462 Unknown [id number] 2.16.8 40.1.097118.3.579.2.462 Unknown [id number] 2.16.8 40.1.267229.3.579.2.462 Unknown [id number] 2.16.8 40.1.643915.3.579.2.462 Unknown [id number] 2.16.8 40.1.885418.3.579.2.462 Unknown [id number] 2.16.8 40.1.531791.3.579.2.462 Unknown [id number] 2.16.8 40.1.767626.3.579.2.462 Unknown [id number] 2.16.8 40.1.797852.3.579.2.462 Unknown [id number] 2.16.8 40.1.554332.3.579.2.462 Unknown [id number] 2.16.8 40.1.906490.3.579.2.462 Unknown [id number] 2.16.8 40.1.122102.3.579.2.462 Unknown [id number] 2.16.8 40.1.475913.3.579.2.462 Unknown [id number] 2.16.8 40.1.254527.3.579.2.462 Unknown [id number] 2.16.8 40.1.406989.3.579.2.462 Unknown [id number] 2.16.8 40.1.334470.3.579.2.462 Unknown [id number] 2.16.8 40.1.047250.3.579.2.462 Unknown [id number] 2.16.8 40.1.411362.3.579.2.462 Unknown [id number] 2.16.8 40.1.348218.3.579.2.462 Unknown [id number] 2.16.8 40.1.954625.3.579.2.462 Unknown [id number] 2.16.8 40.1.896030.3.579.2.462 Unknown [id number] 2.16.8 40.1.778449.3.579.2.462 Unknown [id number] 2.16.8 40.1.776278.3.579.2.462 Unknown [id number] 2.16.8 40.1.997482.3.579.2.462 Unknown [id number] 2.16.8 40.1.151467.3.579.2.462 Unknown [id number] 2.16.8 40.1.129114.3.579.2.462 Unknown [id number] 2.16.8 40.1.503520.3.579.2.462 Unknown [id number] 2.16.8 40.1.232632.3.579.2.462 Unknown [id number] 2.16.8 40.1.194421.3.579.2.462 Unknown [id number] 2.16.8 40.1.220530.3.579.2.462 Unknown [id number] 2.16.8 40.1.828773.3.579.2.462 Unknown [id number] 2.16.8 40.1.695117.3.579.2.462 Unknown [id number] 2.16.8 40.1.428483.3.579.2.462 Unknown [id number] 2.16.8 40.1.150291.3.579.2.462 Unknown [id number] 2.16.8 40.1.573177.3.579.2.462 Unknown [id number] 2.16.8 40.1.691808.3.579.2.462 Unknown [id number] 2.16.8 40.1.269120.3.579.2.462 Unknown [id number] 2.16.8 40.1.694553.3.579.2.462 Unknown [id number] 2.16.8 40.1.595603.3.579.2.462 Unknown [id number] 2.16.8 40.1.318120.3.579.2.462 Social History Date Type Detail Facility Start: 02-27-2019 End: 06-23-2024 Ex-smoker (finding) [facility] Comment on above: no smoke exposure Sex Assigned At [facility] Start: 12-08-2021 End: 06-27-2023 Tobacco smoking status NHIS Unknown if ever smoked [facility] Start: 1940 Sex Assigned At Male [facility] Start: 06-23-2024 End: 06-25-2024 Sex Male (finding) [facility] Medical Equipment Procedure Code Equipment Code Equipment Origin al Text Equipment Identifier Dates Blood Glucose Te st Strips Start: 09-21-2020 See Instructions , One touch ultra blue test strips #60 pt to test twice daily., # 1 EA, 11 Refill(s), Pharmacy: [facility], Controlled diabetes mellitus with hyperglycemia Abnormal blood sugar, 162.4, cm, 07/06/21 13:45:00 EDT, Hei... Start: 09-27-2021 See Instructions , One touch Delica Lancet 33g, 1 box of 100, testing 2 times daily, # 1 EA, 11 Refill(s), Pharmacy: [id number], Controlled diabetes mellitus with hyperglycemia Abnormal blood sugar, 162.5, cm, 10/05/21 14:24:00 EDT, Heigh... Start: 10-26-2021 See Instructions , One touch ultra blue test strips #60 pt to test twice daily., # 1 EA, 11 Refill(s), Pharmacy: [facility], Controlled diabetes mellitus with hyperglycemia Abnormal blood sugar, 162.4, cm, 07/06/21 13:45:00 EDT, Hei... Start: 09-27-2021 See Instructions , One touch Delica Lancet 33g, 1 box of 100, testing 2 times daily, # 1 EA, 11 Refill(s), Pharmacy: [id number], Controlled diabetes mellitus with hyperglycemia Abnormal blood sugar, 162.5, cm, 10/05/21 14:24:00 EDT, Heigh... Start: 10-26-2021 See Instructions , One touch ultra blue test strips #60 pt to test twice daily., # 1 EA, 11 Refill(s), Pharmacy: [facility], Controlled diabetes mellitus with hyperglycemia Abnormal blood sugar, 162.4, cm, 07/06/21 13:45:00 EDT, Hei... Start: 09-27-2021 See Instructions , One touch Delica Lancet 33g, 1 box of 100, testing 2 times daily, # 1 EA, 11 Refill(s), Pharmacy: [id number], Controlled diabetes mellitus with hyperglycemia Abnormal blood sugar, 162.5, cm, 10/05/21 14:24:00 EDT, Heigh... Start: 10-26-2021 See Instructions , One touch ultra blue test strips #60 pt to test twice daily., # 1 EA, 11 Refill(s), Pharmacy: [facility] #[id number], Controlled diabetes mellitus with hyperglycemia Type 2 diabetes mellitus with hemoglobin A1c goal of less than 7.5%, 165... Start: 06-02-2022 See Instructions , One touch Delica Lancet 33g, 1 box of 100, testing 2 times daily, # 1 EA, 11 Refill(s), Pharmacy: [facility] #[id number], Controlled diabetes mellitus with hyperglycemia Type 2 diabetes mellitus with hemoglobin A1c goal of less than 7.5%... Start: 06-02-2022 See Instructions , One touch ultra blue test strips #60 pt to test twice daily., # 1 EA, 11 Refill(s), Pharmacy: [facility] #[id number], Controlled diabetes mellitus with hyperglycemia Type 2 diabetes mellitus with hemoglobin A1c goal of less than 7.5%, 165... Start: 06-02-2022 See Instructions , One touch Delica Lancet 33g, 1 box of 100, testing 2 times daily, # 1 EA, 11 Refill(s), Pharmacy: [facility] #[id number], Controlled diabetes mellitus with hyperglycemia Type 2 diabetes mellitus with hemoglobin A1c goal of less than 7.5%... Start: 06-02-2022 See Instructions , One touch ultra blue test strips #60 pt to test twice daily., # 1 EA, 11 Refill(s), Pharmacy: [facility] #[id number], Controlled diabetes mellitus with hyperglycemia Type 2 diabetes mellitus with hemoglobin A1c goal of less than 7.5%, 165... Start: 06-02-2022 See Instructions , One touch Delica Lancet 33g, 1 box of 100, testing 2 times daily, # 1 EA, 11 Refill(s), Pharmacy: [id number] #[id number], Controlled diabetes mellitus with hyperglycemia Type 2 diabetes mellitus with hemoglobin A1c goal of less than 7.5%... Start: 06-02-2022 See Instructions , One touch ultra blue test strips #60 pt to test twice daily., # 1 EA, 11 Refill(s), Pharmacy: [id number] #[id number], Controlled diabetes mellitus with hyperglycemia Type 2 diabetes mellitus with hemoglobin A1c goal of less than 7.5%, 165.1, cm, 06/02/22 13:23:00 EDT, Height, 85.3, kg, 06/02/22 13:23:00 EDT, Dosing Weight Start: 06-02-2022 See Instructions , One touch Delica Lancet 33g, 1 box of 100, testing 2 times daily, # 1 EA, 11 Refill(s), Pharmacy: [facility] #[id number], Controlled diabetes mellitus with hyperglycemia Type 2 diabetes mellitus with hemoglobin A1c goal of less than 7.5%, 165.1, cm, 06/02/22 13:23:00 EDT, Height, 85.3, kg, 06/02/22 13:23:00 EDT, Dosing Weight Start: 06-02-2022 See Instructions , One touch ultra blue test strips #60 pt to test twice daily., # 1 EA, 11 Refill(s), Pharmacy: [facility] #[id number], Controlled diabetes mellitus with hyperglycemia Type 2 diabetes mellitus with hemoglobin A1c goal of less than 7.5%, 165.1, cm, 06/02/22 13:23:00 EDT, Height, 85.3, kg, 06/02/22 13:23:00 EDT, Dosing Weight Start: 06-02-2022 See Instructions , One touch Delica Lancet 33g, 1 box of 100, testing 2 times daily, # 1 EA, 11 Refill(s), Pharmacy: [facility] #[id number], Controlled diabetes mellitus with hyperglycemia Type 2 diabetes mellitus with hemoglobin A1c goal of less than 7.5%, 165.1, cm, 06/02/22 13:23:00 EDT, Height, 85.3, kg, 06/02/22 13:23:00 EDT, Dosing Weight Start: 06-02-2022 See Instructions , One touch ultra blue test strips #60 pt to test twice daily., # 1 EA, 11 Refill(s), Pharmacy: [facility] #[id number], Controlled diabetes mellitus with hyperglycemia Type 2 diabetes mellitus with hemoglobin A1c goal of less than 7.5%, 165.1, cm, 06/02/22 13:23:00 EDT, Height, 85.3, kg, 06/02/22 13:23:00 EDT, Dosing Weight Start: 06-02-2022 See Instructions , One touch Delica Lancet 33g, 1 box of 100, testing 2 times daily, # 1 EA, 11 Refill(s), Pharmacy: [facility] #[id number], Controlled diabetes mellitus with hyperglycemia Type 2 diabetes mellitus with hemoglobin A1c goal of less than 7.5%, 165.1, cm, 06/02/22 13:23:00 EDT, Height, 85.3, kg, 06/02/22 13:23:00 EDT, Dosing Weight Start: 06-02-2022 See Instructions , One touch ultra blue test strips #60 pt to test twice daily., # 1 EA, 11 Refill(s), Pharmacy: [facility] #[id number], Controlled diabetes mellitus with hyperglycemia Type 2 diabetes mellitus with hemoglobin A1c goal of less than 7.5%, 165.1, cm, 06/02/22 13:23:00 EDT, Height, 85.3, kg, 06/02/22 13:23:00 EDT, Dosing Weight Start: 06-02-2022 See Instructions , One touch Delica Lancet 33g, 1 box of 100, testing 2 times daily, # 1 EA, 11 Refill(s), Pharmacy: [facility] #[id number], Controlled diabetes mellitus with hyperglycemia Type 2 diabetes mellitus with hemoglobin A1c goal of less than 7.5%, 165.1, cm, 06/02/22 13:23:00 EDT, Height, 85.3, kg, 06/02/22 13:23:00 EDT, Dosing Weight Start: 06-02-2022 See Instructions , One touch ultra blue test strips #60 pt to test twice daily., # 1 EA, 11 Refill(s), Pharmacy: [facility] #[id number], Controlled diabetes mellitus with hyperglycemia Type 2 diabetes mellitus with hemoglobin A1c goal of less than 7.5%, 165.1, cm, 06/02/22 13:23:00 EDT, Height, 85.3, kg, 06/02/22 13:23:00 EDT, Dosing Weight Start: 06-02-2022 See Instructions , One touch Delica Lancet 33g, 1 box of 100, testing 2 times daily, # 1 EA, 11 Refill(s), Pharmacy: [facility] #[id number], Controlled diabetes mellitus with hyperglycemia Type 2 diabetes mellitus with hemoglobin A1c goal of less than 7.5%, 165.1, cm, 06/02/22 13:23:00 EDT, Height, 85.3, kg, 06/02/22 13:23:00 EDT, Dosing Weight Start: 06-02-2022 See Instructions , One touch ultra blue test strips #60 pt to test twice daily., # 1 EA, 11 Refill(s), Pharmacy: [facility] #[id number], Controlled diabetes mellitus with hyperglycemia Type 2 diabetes mellitus with hemoglobin A1c goal of less than 7.5%, 165.1, cm, 06/02/22 13:23:00 EDT, Height, 85.3, kg, 06/02/22 13:23:00 EDT, Dosing Weight Start: 06-02-2022 See Instructions , One touch Delica Lancet 33g, 1 box of 100, testing 2 times daily, # 1 EA, 11 Refill(s), Pharmacy: [facility] #[id number], Controlled diabetes mellitus with hyperglycemia Type 2 diabetes mellitus with hemoglobin A1c goal of less than 7.5%, 165.1, cm, 06/02/22 13:23:00 EDT, Height, 85.3, kg, 06/02/22 13:23:00 EDT, Dosing Weight Start: 06-02-2022 See Instructions , One touch ultra blue test strips #60 pt to test twice daily., # 1 EA, 11 Refill(s), Pharmacy: [facility] #[id number], Controlled diabetes mellitus with hyperglycemia Type 2 [...] 1 EA, 11 Refill(s), Pharmacy: [facility] #[id number], Controlled diabetes mellitus with hyperglycemia Type 2 diabetes mellitus with hemoglobin A1c goal of less than 7.5%, 165.1, cm, 06/02/22 13:23:00 EDT, Height, 85.3, kg, 06/02/22 13:23:00 EDT, Dosing Weight Start: 06-02-2022 See Instructions , One touch Delica Lancet 33g, 1 box of 100, testing 2 times daily, # 1 EA, 11 Refill(s), Pharmacy: [facility] #[id number], Controlled diabetes mellitus with hyperglycemia Type 2 diabetes mellitus with hemoglobin A1c goal of less than 7.5%, 165.1, cm, 06/02/22 13:23:00 EDT, Height, 85.3, kg, 06/02/22 13:23:00 EDT, Dosing Weight Start: 06-02-2022 See Instructions , One touch ultra blue test strips #60 pt to test twice daily., # 1 EA, 11 Refill(s), Pharmacy: [facility] #[id number], Controlled diabetes mellitus with hyperglycemia Type 2 diabetes mellitus with hemoglobin A1c goal of less than 7.5%, 165.1, cm, 06/02/22 13:23:00 EDT, Height, 85.3, kg, 06/02/22 13:23:00 EDT, Dosing Weight Start: 06-02-2022 See Instructions , One touch Delica Lancet 33g, 1 box of 100, testing 2 times daily, # 1 EA, 11 Refill(s), Pharmacy: [facility][id number], Controlled diabetes mellitus with hyperglycemia Type 2 diabetes mellitus with hemoglobin A1c goal of less than 7.5%, 165.1, cm, 06/02/22 13:23:00 EDT, Height, 85.3, kg, 06/02/22 13:23:00 EDT, Dosing Weight Start: 06-02-2022 See Instructions , One touch ultra blue test strips #60 pt to test twice daily., # 1 EA, 11 Refill(s), Pharmacy: [facility], Controlled diabetes mellitus with hyperglycemia Type 2 diabetes mellitus with hemoglobin A1c goal of less than 7.5%, 160, cm, 03/02/23 8:17:00 EST, Height, 87.7, kg, 03/02/23 8:17:00 EST, Dosing Weight Start: 03-13-2023 See Instructions , One touch Delica Lancet 33g, 1 box of 100, testing 2 times daily, # 1 EA, 11 Refill(s), Pharmacy: [facility] #[id number], Controlled diabetes mellitus with hyperglycemia Type 2 diabetes mellitus with hemoglobin A1c goal of less than 7.5%, 165.1, cm, 06/02/22 13:23:00 EDT, Height, 85.3, kg, 06/02/22 13:23:00 EDT, Dosing Weight Start: 06-02-2022 See Instructions , One touch ultra blue test strips #60 pt to test twice daily., # 1 EA, 11 Refill(s), Pharmacy: [facility], Controlled diabetes mellitus with hyperglycemia Type 2 diabetes mellitus with hemoglobin A1c goal of less than 7.5%, 160, cm, 03/02/23 8:17:00 EST, Height, 87.7, kg, 03/02/23 8:17:00 EST, Dosing Weight Start: 03-13-2023 See Instructions , One touch Delica Lancet 33g, 1 box of 100, testing 2 times daily, # 1 EA, 11 Refill(s), Pharmacy: [id number] #[id number], Controlled diabetes mellitus with hyperglycemia Type 2 diabetes mellitus with hemoglobin A1c goal of less than 7.5%, 165.1, cm, 06/02/22 13:23:00 EDT, Height, 85.3, kg, 06/02/22 13:23:00 EDT, Dosing Weight Start: 06-02-2022 See Instructions , One touch ultra blue test strips #60 pt to test twice daily., # 1 EA, 11 Refill(s), Pharmacy: [facility], Controlled diabetes mellitus with hyperglycemia Type 2 diabetes mellitus with hemoglobin A1c goal of less than 7.5%, 160, cm, 03/02/23 8:17:00 EST, Height, 87.7, kg, 03/02/23 8:17:00 EST, Dosing Weight Start: 03-13-2023 See Instructions , One touch Delica Lancet 33g, 1 box of 100, testing 2 times daily, # 1 EA, 11 Refill(s), Pharmacy: [facility] #[id number], Controlled diabetes mellitus with hyperglycemia Type 2 diabetes mellitus with hemoglobin A1c goal of less than 7.5%, 165.1, cm, 06/02/22 13:23:00 EDT, Height, 85.3, kg, 06/02/22 13:23:00 EDT, Dosing Weight Start: 06-02-2022 See Instructions , One touch ultra blue test strips #60 pt to test twice daily., # 1 EA, 11 Refill(s), Pharmacy: [facility], Controlled diabetes mellitus with hyperglycemia Type 2 diabetes mellitus with hemoglobin A1c goal of less than 7.5%, 160, cm, 03/02/23 8:17:00 EST, Height, 87.7, kg, 03/02/23 8:17:00 EST, Dosing Weight Start: 03-13-2023 See Instructions , One touch Delica Lancet 33g, 1 box of 100, testing 2 times daily, # 1 EA, 11 Refill(s), Pharmacy: [facility] #[id number], Controlled diabetes mellitus with hyperglycemia Type 2 diabetes mellitus with hemoglobin A1c goal of less than 7.5%, 165.1, cm, 06/02/22 13:23:00 EDT, Height, 85.3, kg, 06/02/22 13:23:00 EDT, Dosing Weight Start: 06-02-2022 See Instructions , One touch ultra blue test strips #60 pt to test twice daily., # 1 EA, 11 Refill(s), Pharmacy: [facility], Controlled diabetes mellitus with hyperglycemia Type 2 diabetes mellitus with hemoglobin A1c goal of less than 7.5%, 160, cm, 03/02/23 8:17:00 EST, Height, 87.7, kg, 03/02/23 8:17:00 EST, Dosing Weight Start: 03-13-2023 See Instructions , One touch Delica Lancet 33g, 1 box of 100, testing 2 times daily, # 1 EA, 11 Refill(s), Pharmacy: [facility] #[id number], Controlled diabetes mellitus with hyperglycemia Type 2 diabetes mellitus with hemoglobin A1c goal of less than 7.5%, 165.1, cm, 06/02/22 13:23:00 EDT, Height, 85.3, kg, 06/02/22 13:23:00 EDT, Dosing Weight Start: 06-02-2022 See Instructions , One touch ultra blue test strips #60 pt to test twice daily., # 1 EA, 11 Refill(s), Pharmacy: [facility], Controlled diabetes mellitus with hyperglycemia Type 2 diabetes mellitus with hemoglobin A1c goal of less than 7.5%, 160, cm, 03/02/23 8:17:00 EST, Height, 87.7, kg, 03/02/23 8:17:00 EST, Dosing Weight Start: 03-13-2023 See Instructions , One touch Delica Lancet 33g, 1 box of 100, testing 2 times daily, # 1 EA, 11 Refill(s), Pharmacy: [facility] #[id number], Controlled diabetes mellitus with hyperglycemia Type 2 diabetes mellitus with hemoglobin A1c goal of less than 7.5%, 165.1, cm, 06/02/22 13:23:00 EDT, Height, 85.3, kg, 06/02/22 13:23:00 EDT, Dosing Weight Start: 06-02-2022 See Instructions , One touch ultra blue test strips #60 pt to test twice daily., # 1 EA, 11 Refill(s), Pharmacy: [facility], Controlled diabetes mellitus with hyperglycemia Type 2 diabetes mellitus with hemoglobin A1c goal of less than 7.5%, 160, cm, 03/02/23 8:17:00 EST, Height, 87.7, kg, 03/02/23 8:17:00 EST, Dosing Weight Start: 03-13-2023 See Instructions , One touch Delica Lancet 33g, 1 box of 100, testing 2 times daily, # 1 EA, 11 Refill(s), Pharmacy: [facility] #[id number], Controlled diabetes mellitus with hyperglycemia Type 2 diabetes mellitus with hemoglobin A1c goal of less than 7.5%, 165.1, cm, 06/02/22 13:23:00 EDT, Height, 85.3, kg, 06/02/22 13:23:00 EDT, Dosing Weight Start: 06-02-2022 See Instructions , One touch ultra blue test strips #60 pt to test twice daily., # 1 EA, 11 Refill(s), Pharmacy: [facility], Controlled diabetes mellitus with hyperglycemia Type 2 diabetes mellitus with hemoglobin A1c goal of less than 7.5%, 160, cm, 03/02/23 8:17:00 EST, Height, 87.7, kg, 03/02/23 8:17:00 EST, Dosing Weight Start: 03-13-2023 See Instructions , One touch Delica Lancet 33g, 1 box of 100, testing 2 times daily, # 1 EA, 11 Refill(s), Pharmacy: [id number] #[id number], Controlled diabetes mellitus with hyperglycemia Type 2 diabetes mellitus with hemoglobin A1c goal of less than 7.5%, 165.1, cm, 06/02/22 13:23:00 EDT, Height, 85.3, kg, 06/02/22 13:23:00 EDT, Dosing Weight Start: 06-02-2022 See Instructions , One touch ultra blue test strips #60 pt to test twice daily., # 1 EA, 11 Refill(s), Pharmacy: [facility], Controlled diabetes mellitus with hyperglycemia Type 2 diabetes mellitus with hemoglobin A1c goal of less than 7.5%, 160, cm, 03/02/23 8:17:00 EST, Height, 87.7, kg, 03/02/23 8:17:00 EST, Dosing Weight Start: 03-13-2023 See Instructions , One touch Delica Lancet 33g, 1 box of 100, testing 2 times daily, # 1 EA, 11 Refill(s), Pharmacy: [facility] #[id number], Controlled diabetes mellitus with hyperglycemia Type 2 diabetes mellitus with hemoglobin A1c goal of less than 7.5%, 165.1, cm, 06/02/22 13:23:00 EDT, Height, 85.3, kg, 06/02/22 13:23:00 EDT, Dosing Weight Start: 06-02-2022 See Instructions , One touch ultra blue test strips #60 pt to test twice daily., # 1 EA, 11 Refill(s), Pharmacy: [facility], Controlled diabetes mellitus with hyperglycemia Type 2 diabetes mellitus with hemoglobin A1c goal of less than 7.5%, 160, cm, 03/02/23 8:17:00 EST, Height, 87.7, kg, 03/02/23 8:17:00 EST, Dosing Weight Start: 03-13-2023 See Instructions , One touch Delica Lancet 33g, 1 box of 100, testing 2 times daily, # 1 EA, 11 Refill(s), Pharmacy: [facility], Controlled diabetes mellitus with hyperglycemia Type 2 diabetes mellitus with hemoglobin A1c goal of less than 7.5%, 165, cm, 06/14/23 13:33:00 EDT, Height, 181, kg, 06/14/23 13:33:00 EDT, Dosing Weight Start: 06-26-2023 See Instructions , One touch ultra blue test strips #60 pt to test twice daily., # 1 EA, 11 Refill(s), Pharmacy: [facility], Controlled diabetes mellitus with hyperglycemia Type 2 diabetes mellitus with hemoglobin A1c goal of less than 7.5%, 160, cm, 03/02/23 8:17:00 EST, Height, 87.7, kg, 03/02/23 8:17:00 EST, Dosing Weight Start: 03-13-2023 See Instructions , One touch Delica Lancet 33g, 1 box of 100, testing 2 times daily, # 1 EA, 11 Refill(s), Pharmacy: [facility], Controlled diabetes mellitus with hyperglycemia Type 2 diabetes mellitus with hemoglobin A1c goal of less than 7.5%, 165, cm, 06/14/23 13:33:00 EDT, Height, 181, kg, 06/14/23 13:33:00 EDT, Dosing Weight Start: 06-26-2023 Goals Date Patient Goal Desired Activity /State Functional Status Date Assessment Result Facility 06-25-2024 Functional status Chair [facility] Work Phone: 03-02-2024 Functional status Ambulates;Chair [facility] Work Phone: 06-11-2023 Functional Status Mobile home [facility] 06-11-2023 Functional Status Mod I [facility] 06-11-2023 Functional Status Non-Slip footw ear, Room check performed [facility] 06-11-2023 Functional Status [facility] 06-11-2023 Functional Status [facility] 06-11-2023 Functional Status [facility] 06-10-2023 Functional Status Up with assistance [facility] 06-10-2023 Functional Status [facility] 06-10-2023 Functional Status [facility] 06-10-2023 Functional Status 7am-7pm [facility] 06-10-2023 Functional Status [facility] 06-10-2023 Functional Status [facility] 06-09-2023 Functional Status padded oxygen tubing [facility] 06-09-2023 Functional Status [facility] 06-09-2023 Functional Status Dinner Percent 100 [facility] 06-09-2023 Functional Status [facility] 06-09-2023 Functional Status [facility] 06-09-2023 Functional Status Feeding Assistance Inde pendent [facility] 06-09-2023 Functional Status [facility] 06-08-2023 Functional Status [facility] 06-08-2023 Functional Status Maximum assistance [facility] 06-08-2023 Functional Status Standard Safet y ID band on, Allergy Band on, Call device within reach, Bed in low position, Wheels locked [facility] 06-08-2023 Functional Status Identified as high risk, Room located near nursing station [facility] 05-25-2023 Functional Status Independent [facility] 05-25-2023 Functional Status Standard Safet y ID band on, Allergy Band on, Call device within reach, Bed in low position, Wheels locked, Safety level maintained [facility] 05-08-2023 Functional Status Supervised [facility] 05-08-2023 Functional Status Lunch Percent 100 [facility] 05-08-2023 Functional Status Identified as high risk, Fall ID band on, Door open, Non-Slip footwear [facility] 05-08-2023 Functional Status [facility] 05-07-2023 Functional Status [facility] 05-07-2023 Functional Status Demonstrates C orrect Call Light Use Yes [facility] 05-07-2023 Functional Status [facility] 05-07-2023 Functional Status Mobile home [facility] 05-07-2023 Functional Status [facility] 04-26-2023 Functional status Activity Ability Indepe [facility] Work Phone: 04-26-2023 Functional status Ambulates;Chair [facility] Work Phone: 03-09-2023 Functional status Patient Activity [facility] Work Phone: 03-09-2023 Functional status Activity Abili ty With Assist of 1 [facility] Work Phone: 03-08-2023 Functional status Standard Walker [facility] Work Phone: 02-15-2023 Functional status Bedpan [facility] Work Phone: 11-18-2022 Functional status Activity Abili ty Standby Assist [facility] Work Phone: 11-18-2022 Functional status Patient Activity [facility] Work Phone: 05-25-2022 Functional status Activity Ability Indepe [facility] Work Phone: 04-13-2022 Functional status Chair [facility] Work Phone: 03-16-2022 Functional status Ambulates;Up ad renita;Shawna ir [facility] Work Phone: 12-16-2021 Functional status Ambulates [facility] Work Phone: Mental Status Date Assessment Result Facility 06-25-2024 Cognitive function Voice/Name [facility] Work Phone: 03-02-2024 Cognitive function Voice/Name [facility] Work Phone: 06-11-2023 Mental Status Oriented x 4, Follows simple commands [facility] 06-10-2023 Mental Status [facility] 06-10-2023 Mental Status [facility] 06-09-2023 Mental Status [facility] 06-08-2023 Mental Status Orientation Oriented x 4 [facility] 06-08-2023 Mental Status [facility] 05-25-2023 Mental Status Orientation Oriented x 4 [facility] 05-25-2023 Mental Status [facility] 05-08-2023 Mental Status Oriented x 4 [facility] 05-07-2023 Mental Status [facility] 05-07-2023 Mental Status [facility] 04-26-2023 Cognitive function Voice/Name [facility] Work Phone: 04-02-2023 Cognitive function Voice/Name [facility] Work Phone: 03-09-2023 Cognitive function Voice/Name [facility] Work Phone: 02-14-2023 Cognitive function Voice/Name;To uch/Shaking;Light Pain;Deep Pain [facility] Work Phone: 11-18-2022 Cognitive function Voice/Name [facility] Work Phone: 05-26-2022 Cognitive function Voice/Name [facility] Work Phone: 04-13-2022 Cognitive function Voice/Name [facility] Work Phone: 03-14-2022 Cognitive function Voice/Name [facility] Work Phone: 12-16-2021 Cognitive function Voice/Name [facility] Work Phone: 12-08-2021 Cognitive function Level Of Cons ciousness Awake;Alert;Appropriate;Follow s Commands [facility] Work Phone: Clinical Notes 04-23-2021 to 06-25-2024 Note Date & Type Note Facility 06-25-2024 Consult note [facility] 06-25-2024 Consult note Note Date/Time June 25, 2024 5:29pm [facility] Medical Records Department [address] [place] [address] Counseling Note - Pharmacy 06/25/24 1448 MR#: [id number] Acct: [id number] Name: BEULAH BRIGHT Rep #:[id number] : 1940 84 From: Rena Song PCP: Dr. Yuridia Hernandez MD Status:ADM I N Y Location: [place] [address] Pharmacy [facility] Service has performed discharge medication [...] of their dischargemedications. Patient counseled by pharmacy intake coordinatorLalit. Medications at Discharge Home Medications atorvastatin 80 mg tablet 80 mg PO DAILY CHOLESTEROL 05/02/21 cholecalciferol (vitamin D3) 25 mcg (1,000 unit) capsule 25 mcg PO DAILY qajpcpk89/21/22 ipratropium 0.5 mg-albuterol 3 mg (2.5 mg base)/3 mL nebulization soln 3 ml inhalation 4X/DAY PRN sob 05/02/21 liothyronine 25 mcg tablet 25 mcg PO DAILY THYROID 05/02/21 tiotropium bromide 18 mcg capsule with inhalation device (Spiriva with HandiHaler) 18 mcg inhalation DAILY SOB 05/02/21 vitamins A,C,F-avjx-ctybhx 4,296 mcg-226 mg-90 mg capsule (PreserVision AREDS) [...] Signature (if applicable): Date CC: ~ Signed [facility] Work Phone: 1(630) 414-514904-16-2025 Discharge summary [facility] Medical Records Department [facility] [place] [address] Discharge Summary 06/25/24 1349 MR#: [id number] Acct: [id number] Name: BEULAH BRIGHT Rep #:[id number] : 1940 84 From: Sarai Alcantara MD PCP: Dr. Yuridia Hernandez MD Status:ADM I N Location: [place] [address] Providers Date of Admission: 06/23/24 Date of [...] (1,000 unit) capsule 25 mcg PO DAILY euurisc77/21/22 ipratropium 0.5 mg-albuterol 3 mg (2.5 mg base)/3 mL nebulization soln 3 ml inhalation 4X/DAY PRN sob 05/02/21 liothyronine 25 mcg tablet 25 mcg PO DAILY THYROID 05/02/21 tiotropium bromide 18 mcg capsule with inhalation device (Spiriva with HandiHaler) 18 mcg inhalation DAILY SOB 05/02/21 vitamins A,C,H-wtnb-ckfpat 4,296 mcg-226 mg-90 mg capsule (PreserVision AREDS) [...] (Auto) 80.9 H, Lymph % (Auto) 12.3 L,[place] % (Auto) 6.1, Eos % (Auto) 0.3, [...] 25 mcg PO DAILY PreserVision AREDS 14,320-226-200 qfyz-wu-cucn Capsule 1 cap PO BID Jardiance 10 [...] Self Care Charges/Coding Visit Charges Inpatient E&M: 40277 Disch Hosp >30min 06/25/24 1640 Cosigner Signature (if applicable): CC: Dr. Sarai Alcantara MD; Dr. Yuridia Hernandez MD~ Signed [facility]04-16-2025 Discharge summary Author [facility] Note Date/Time June 25, 2024 1:4 9pm [facility] Medical Records Department [address] [place] [address] Instructions for Home/Discharge Instructions 06/25/24 1348 MR#: [id number] Acct: [id number] Name: BEULAH BRIGHT Rep #:[id number] : 1940 84 From: Sarai Alcantara [...] 25 mcg PO DAILY PreserVision AREDS 14320-226-200 ycfu-rq-nnjp Capsule 1 cap PO BID Jardiance 10 [...] MD; Dr. Yuridia Hernandez MD ~ Signed [facility] Work Phone: 1(667) 689-376404-16-2025 Discharge summary Author Sarai Alcantara [facility] Note Date/Time June 25, 2024 4:4 0pm [facility] Medical Records Department [address] [place] [address] Discharge Summary 06/25/24 1349 MR#: [id number] Acct: [id number] Name: BEULAH BRIGHT Rep #:[id number] : 1940 84 From: Sarai Alcantara MD PCP: Dr. Yuridia Hernandez MD Status:ADM I N Location: [place] [address] Providers Date of Admission: 06/23/24 Date of [...] (1,000 unit) capsule 25 mcg PO DAILY aoiuatm39/21/22 ipratropium 0.5 mg-albuterol 3 mg (2.5 mg base)/3 mL nebulization soln 3 ml inhalation 4X/DAY PRN sob 05/02/21 liothyronine 25 mcg tablet 25 mcg PO DAILY THYROID 05/02/21 tiotropium bromide 18 mcg capsule with inhalation device (Spiriva with HandiHaler) 18 mcg inhalation DAILY SOB 05/02/21 vitamins A,C,X-qtwc-udzkxb 4,296 mcg-226 mg-90 mg capsule (PreserVision AREDS) [...] (Auto) 80.9 H, Lymph % (Auto) 12.3 L,[place] % (Auto) 6.1, Eos % (Auto) 0.3, [...] 25 mcg PO DAILY PreserVision AREDS 14320-226-200 pkct-ya-tskq Capsule 1 cap PO BID Jardiance 10 [...] Self Care Charges/Coding Visit Charges Inpatient E&M: 36045 Disch Hosp >30min 06/25/24 1640 <Electronically signed by Sarai Alcantara MD> Cosigner Signature (if applicable): CC: Dr. Sarai Alcantara MD; Dr. Yuridia Hernandez MD~ Signed [facility] Work Phone: 1(457) 353-572204-16-2025 Discharge summary [facility] Medical Records Department [address] [place] [address] Instructions for Home/Discharge Instructions 06/25/24 1348 MR#: [id number] Acct: [id number] Name: BEULAH BRIGHT Javier Rep #:[id number] 8 : 1940 84 From: Sarai Alcantara [...] 25 mcg PO DAILY PreserVision AREDS 14,320-226-200 hnnd-ql-hkpt Capsule 1 cap PO BID Jardiance 10 [...] MD; Dr. Yuridia Hernandez MD ~ Signed [facility]04-16-20[facility] Progress note Author [facility] Note Date/Time June 24, 2024 2:1 7pm [facility] Medical Records Department [address] [place] [address] Progress Note 06/24/24 1359 MR#: [id number] Acct: [id number] Name: BEULAH BRIGHT Rep #:[id number] : 1940 84 From: Sarai Alcantara MD PCP: Dr. Yuridia Hernandez MD Status:ADM I N Location: [place] [address] Subjective Subjective Patient seen and examined. He [...] 71.4 H, Lymph % (Auto) 17.7 L, [place] % (Auto) 6.6, Eos % (Auto) 3.5, [...] 85.0 H, Lymph % (Auto) 13.4 L, [place] % (Auto) 1.3, Eos % (Auto) 0.0, [...] No acute abnormality is seen. Reading Location: [place] [address] Physical Exam Const alert, oriented x3, no [...] prophylaxis: SCDs Charges/Coding Visit Charges Inpatient E&M: 16920 Subs Hosp L2 06/24/24 1417 <Electronically signed by Sarai Alcantara MD> Sarai Alcantara MD Cosigner Signature (if applicable): CC: ~ Signed [facility] Work Phone: 1(968) 819-372904-15-2025 Progress note [facility] Medical Records Department [address] [place] [address] Progress Note 06/24/24 1359 MR#: [id number] Acct: [id number] Name: BEULAH BRIGHT Rep #:[id number] : 1940 84 From: Sarai Alcantara MD PCP: Dr. Yuridia Hernandez MD Status:ADM I N Location: [place] [address] Subjective Subjective Patient seen and examined. He [...] 71.4 H, Lymph % (Auto) 17.7 L, [place] % (Auto) 6.6, Eos % (Auto) 3.5, [...] 85.0 H, Lymph % (Auto) 13.4 L, [place] % (Auto) 1.3, Eos % (Auto) 0.0, [...] No acute abnormality is seen. Reading Location: [place] [address] Physical Exam Const alert, oriented x3, no [...] prophylaxis: SCDs Charges/Coding Visit Charges Inpatient E&M: 95143 Subs Hosp L2 06/24/24 1417 Sarai Alcantara MD Cosigner Signature (if applicable): CC: ~ Signed [facility]04-15-2025 Discharge summary Author Delia Tai [facility] Note Date/Time June 24, 2024 8:2 5am [facility] Medical Records Department [address] [place] [address] Emergency Department Summary 06/23/24 MR#: [id number] Acct: [id number] Name: BEULAH BRIGHT Rep #:[id number] : 1940 84 From: Delia MCKEON PCP: Dr. Yuridia Hernandez MD Status:ADM I N Location: [address] <MIKE Calhoun - Last Filed: 06/23/24 [...] bleed. He is not on blood thinners. [facility] <MIKE Calhoun - Last Filed: 06/23/24 18:10> [facility] Medical History Anemia Acute dyspnea Obesity [...] catheterization (LHC) (~03/15/22) Atherosclerotic heart disease of [place] coronary artery without angina pectoris Aortic valve [...] with inhalation device (Spiriva with HandiHaler) vitamins A,C,L-wsvm-xsclrw 4,296 1 cap PO BID vitamin 12/13/21 [...] <MIKE Calhoun - Last Filed: 06/23/24 18:10> [facility] Narrative Medical decision making narrative: Differential [...] 71.4 H Lymph % (Auto) 17.7 L [place] % (Auto) 6.6 Eos % (Auto) 3.5 [...] No acute abnormality is seen. Reading Location: [place] [address] ED attending interpretation of 1-view chest x-ray shows normal heart size, no acute infiltrate, edema, or effusion. EKG Initial EKG: Attestation: I personally reviewed and interpreted this EKG as follows: Comments: Sinus rhythm with first-degree AV block at [address] changes, no STEMI <Dr. Eric Lester MD - Last Filed: 06/23/24 15:51> [facility] Lab Data Labs: Laboratory Results - [...] 71.4 H Lymph % (Auto) 17.7 L [place] % (Auto) 6.6 Eos % (Auto) 3.5 [...] No acute abnormality is seen. Reading Location: [place] [address] Treatment and Re-Evaluation Comments:: I have personally [...] your Primary Care Provider. Call [facility] ([phone]) or report to the closest Emergency Room. Call 911 if necessary. 06/23/24 1810 <Electronically signed by Delia MCKEON> Cosigner Signature (if applicable): 06/24/24 0825 <Electronically signed by Eric Lester MD> CC: Dr. Yuridia Hernandez MD ~ Signed [facility] Work Phone: 1(340) 536-739204-15-2025 Discharge summary [facility] Medical Records Department [address] [place] [address] Emergency Department Summary 06/23/24 MR#: [id number] Acct: [id number] Name: BEULAH BRIGHT Rep #:[id number] : 1940 84 From: Delia MCKEON PCP: Dr. Yuridia Hernandez MD Status:ADM I N Location: [place] [address] HPI History of Present Illness Chief Complaint: [...] GI bleed.He is not on blood thinners. [facility] Medical History Anemia Acute dyspnea [...] catheterization (LHC) (~03/15/22) Atherosclerotic heart disease of [place] coronary artery without angina pectoris Aortic valve [...] with inhalation device (Spiriva with HandiHaler) vitamins A,C,Q-bcil-rvqsts 4,296 1 cap PO BID vitamin 12/13/21 [...] 71.4 H Lymph % (Auto) 17.7 L [place] % (Auto) 6.6 Eos % (Auto) 3.5 [...] No acute abnormality is seen. Reading Location: [place] [address] ED attending interpretation of 1-view chest x-ray [...] 71.4 H Lymph % (Auto) 17.7 L [place] % (Auto) 6.6 Eos % (Auto) 3.5 [...] No acute abnormality is seen. Reading Location: [place] [address] Treatment and Re-Evaluation Comments:: I have personally [...] your Primary Care Provider. Call [facility] ([phone]) or report to the closest Emergency Room. Call 911 if necessary. 06/23/24 1810 Cosigner Signature (if applicable): 06/24/24 1585 CC: Dr. Yuridia Hernandez MD ~ Signed [facility]04-14-2025 History and physical note Author Tracy Angel [facility] Note Date/Time June 23, 2024 5:5 4pm [facility] Medical Records Department [address] [place] [address] H&P Exam - Hospitalist 06/23/24 1737 MR#: [id number] Acct: [id number] Name: BEULAH BRIGHT Rep #:[id number] : 1940 84 From: Tracy Angel MD PCP: Dr. 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 Charges/Coding Visit Charges Inpatient E&M: 21362 Init Hosp L3 Procedures Hospitalists Procedures: 96847 Advncd Care Plan 30 Min 06/23/24 1754 <Electronically signed by Tracy Angel MD> Cosigner Signature (if applicable): CC: Dr. Tracy Angel MD; Dr. Yuridia Hernandez MD~ Signed [facility] Work Phone: 1(444) 482-665004-14-2025 History and physical note [facility] Medical Records Department [address] [place] [address] H&P Exam - Hospitalist 06/23/24 1734 MR#: [id number] Acct: [id number] Name: BEULAH BRIGHT Rep #:[id number] : 1940 84 From: Tracy Angel MD PCP: Dr. 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 Charges/Coding Visit Charges Inpatient E&M: 10664 Init Hosp L3 Procedures Hospitalists Procedures: 77088 Advncd Care Plan 30 Min 06/23/24 9509 Cosigner Signature (if applicable): CC: Dr. Tracy Angel MD; Dr. Yuridia Hernandez MD~ Signed [facility]04-14-2025 Radiology Diagnostic study note [facility] Imaging Services [address] [place] [address] Chest 1 View (Portable) MR#: [id number] Acct: [id number] Name: BEULAH BRIGHT Rep #: [id number] : 1940 M 84 From: Jomar La MD PCP: Dr. Yuridia Hernandez MD Status: PRE E R Study:Chest 1 View (Portable) Date of Exam: 06/23/24 Exam# [id number] Ordering Dr: Delia Thompson PROCEDURE: CHEST 1 [...] No acute abnormality is seen. Reading Location: [place] [address] CC: Dr. Yuridia Hernandez MD; MIKE Calhoun ~ Weatherseal Technician: Signed [facility]03-19-2025 Evaluation note* Diagnosis Onset Date Resolution Status Admit Date Anemia chronic May 28 3:01pm Iron deficiency chronic May 3:01pm COPD exacerbation resolved June 102024 5:35pm Elevated troponin resolved June 102024 5:35pm Chronic anemia inactive June 5:35pm Chronic kidney disease inactive 2024 5:35pm History of gastric ulcer acute July 14, 2024 2:20pm [facility] Work Phone: 1(653) 860-141612-22-2024 [facility]12-19-2024 Evaluation note* Diagnosis Onset Date Resolution Status [...] 5:35pm COPD exacerbation chronic June 102024 5:35pm [facility] Work Phone: 1(914) 123-343311-25-2024 [facility]10-18-2024 [facility]09-30-2024 [facility] 11-20-2023 [facility]09-06-2024 [facility]04-17-2024 Discharge summary Author Dalton Forrest [facility] June 27, 2023 2:49pm Note Date/Time June 27, 2023 1:2 6pm [facility] Medical Records Department [address] [place] [address] Emergency Department Summary 06/27/23 MR#: [id number] Acct: [id number] Name: BEULAH BRIGHT Rep #:[id number] : 1940 83 From: Dalton Forrest [...] increased shortness of breath over his baseline. [facility] Medical History Acute and chronic respiratory failure with hypoxia Aortic valve stenosis, acquired Atherosclerotic heart disease of [place] coronary artery without angina pectoris CAD (coronary [...] (1,000 unit) capsule 25 mcg PO DAILY noxkqcv06/21/22 [History Last Taken 02/15/23] ipratropium 0.5 mg-albuterol [...] SOB 05/02/21 [History Last Taken 02/15/23] vitamins A,C,U-plbh-lkufjh 4,296 mcg-226 mg-90 mg capsule (PreserVision AREDS) [...] DAILY 06/27/23 [History Last Taken Unknown] vitamins A,C,D-nzao-phyhda 4,296 mcg-226 mg-90 mg capsule (PreserVision AREDS) [...] % (Auto) 62.3 Lymph % (Auto) 23.7 [place] % (Auto) 9.6 Eos % (Auto) 3.8 [...] Clarity Clear Urine pH 5.0 Ur Specific Molino 1.015 Urine Protein 30 H Urine Glucose [...] 2 cap PO BID PreserVision AREDS 14,320-226-200 tqvh-hd-lxtn Capsule 1 cap PO BID Jardiance 10 [...] your Primary Care Provider. Call [facility] ([phone]) or report to the closest Emergency Room. Call 911 if necessary. 06/27/23 1449 <Electronically signed by Dalton Forrest MD> Cosigner Signature (if applicable): CC: Dr. Talya Nichols DO ~ Signed [facility] Work Phone: 1(707) 604-909904-01-2024 Hospital Discharge instructions Patient Education 06/11/2023 12:25:18 [...] symptoms. Follow these instructions at home: Take iwbk-epr-kbewtdm and prescription medicines only as told by your health care provider. Weigh yourself daily. Your target weight is lb ( kg). ?Call your health care provider if you gain more than lb ( kg) in a day, or more than lb ( kg) in one week. Eat a heart-healthy diet. Work with a diet and exercise specialist (dietitian) to create an eatingplan that is best for you. Keep all follow-up visits as told by your health care provider. This is important. Where to find more information [employer]: www.heart.org Summary Follow the action [...] 04/07/2017 Document Revised: 02/08/2018 Document Reviewed: 04/07/2017 [employer] Patient Education 2020 [employer]. 06/11/2023 12:25:15 Heart Failure, Self Care, Rbvh-wj-Gsot Heart Failure, Self Care Heart failure is [...] when you have heart failure Medicines Take qyri-rcq-cynoxdb and prescription medicines only as told by [...] 06/11/2019 Document Revised: 06/10/2019 Document Reviewed: 06/11/2019 [employer] Patient Education 2020 [employer]. 06/11/2023 12:25:09 Heart Failure Eating Plan Heart [...] lifestyle and working with a diet and exercise specialist (dietitian) to choose the right foods [...] cheese. Low-sodium cottage cheese. Fats and oils [place], canola, soybean, flaxseed, or sunflower oil. Avocado. Sweets and desserts Apple sauce. Granola bars. Sugar-free pudding and gelatin. Frozen fruit bars. Seasoning and other foods Fresh and dried herbs. Lemon or lower [place] juice. Vinegar. Low-sodium ketchup. Salt- free marinades, [...] vegetables with sauce or seasonings. Creamed vegetables. [place] fries. Onion rings. Pickled vegetables and sauerkraut. [...] Salted nuts and seeds. Dairy Whole milk, dljh-jsi-soki, and cream. Buttermilk. Processed cheese, cheese spreads, [...] 07/13/2017 Document Revised: 04/24/2019 Document Reviewed: 07/13/2017 [employer] Patient Education 2020 [employer] Follow Up Care 06/08/2023 19:34:17 With:TALYA NICHOLS DO Address: [address] [place] [address] [place] [address]- [phone] When: only if needed Comments:Please call the office to schedule a follow-up appointment. With:ROJAS AVILA MD Address: [address] [place] [address] [address] [place] [address]- [phone] When:Within 2 Week(s) Comments:Call office within 2 weeks for appointment With:NAMRATA ESPINO MD Address: [address] [place] [address] [facility] [place] [address]- When:Within 2 Week(s) Comments:Please call office within 2 weeks for appointment [facility] 04-01-2024 Note Discharge Instructions Thank you for allowing [place] to assist you with your healthcare needs. [...] You were transfused blood seen by a pick and shovel worker and started on IV diuretics (water pills). Please follow-up with your primary care doctor, we will have you follow-up with a pick and shovel worker for your aortic stenosis (narrow heart valve). Please follow-up with your established dobby looms pegger. If you do not have an established dobby looms pegger I will provide you with information for a dobby looms pegger. Again please contact your primary care doctor soon as possible. Please seek medical assistance if your symptoms recur or worsen. Take care Follow Up Appointments Follow Up with TALYA NICHOLS DO When Only if needed Why: Please call the office to schedule a follow-up appointment. Where: [address] [facility] [place] [address]- [phone] Follow Up with ROJAS AVILA MD When In 2 weeks Why: Call office within 2 weeks for appointment Where: [address] [facility] [address] [place] [address] [phone] Follow Up with NAMRATA ESPINO MD When In 2 weeks Why: Please call office within 2 weeks for appointment Where: [address] [facility] [place] [address]- The Following Activity and Diet Have Been [...] a day with a meal Pickup at [facility] Changed albuterol-ipratropium (albuterol-ipratropium 2.5 mg-0.5 mg/ 3 mL inhalation solution) 3 Milliliter Nebulized inhalation Four (4) times a day Duration: 30 Days INHALE 3ML VIA NEBULIZER 4 TIMES A DAY NEEDED FOR SHORTNESS OF BREATH OR WHEEZING Pickup at [facility] Changed empagliflozin (Jardiance 10 mg oral tablet) TAKE ONE TABLET BY MOUTH EVERY MORNING Changed furosemide (furosemide 40 mg oral tablet) 1 tab(s) by mouth Every day Pickup at [facility] Changed glimepiride (glimepiride 2 mg [...] Generic is making patient cough. Pickup at [facility] Unchanged atorvastatin (atorvastatin 80 mg [...] (2) times daily before meals Pharmacy Information [facility]: [address] [place] [address] [phone] What How Much When Why Comments Stop [...] symptoms. Follow these instructions at home: Take tryt-xly-uhpffwz and prescription medicines only as told by your health care provider. Weigh yourself daily. Your target weight is lb ( kg). ? Call your health care provider if you gain more than lb ( kg) in a day, or more than lb ( kg) in one week. Eat a heart-healthy diet. Work with a diet and exercise specialist (dietitian) to create an eatingplan that is best for you. Keep all follow-up visits as told by your health care provider. This is important. Where to find more information [place] [employer]: www.heart.org Summary Follow the action [...] Document Reviewed: 04/07/2017 Elsevier Patient Education 2020 [employer]. Heart Failure, Self Care Heart failure [...] when you have heart failure Medicines Take qxhi-fov-qjmawqc and prescription medicines only as told by [...] 06/11/2019 Document Revised: 06/10/2019 Document Reviewed: 06/11/2019 Nayatek Patient Education 2020 [employer]. Heart Failure Eating Plan Heart failure, also called congestive heart failure, occurs when your heart does not pump blood well enough to meet your body's needs for oxygen-rich blood. Heart failure is a long-term (chronic) condition. Living with heart failure can be challenging. However, following your health care provider'sinstructions about a healthy lifestyle and working with a diet and exercise specialist (dietitian) to choose the right foods [...] cheese. Low-sodium cottage cheese. Fats and oils [place], canola, soybean, flaxseed, or sunflower oil. Avocado. Sweets and desserts Apple sauce. Granola bars. Sugar-free pudding and gelatin. Frozen fruit bars. Seasoning and other foods Fresh and dried herbs. Lemon or lower kalskag juice. Vinegar. Low-sodium ketchup. Salt- free marinades, [...] vegetables with sauce or seasonings. Creamed vegetables. Sri Lankan fries. Onion rings. Pickled vegetables and sauerkraut. [...] Salted nuts and seeds. Dairy Whole milk, htza-tuj-sitd, and cream. Buttermilk. Processed cheese, cheese spreads, [...] and bouillon cubes. Horseradish, ketchup, and mustard. Kenmore Hospitaltershire sauce. Teriyaki sauce, soy sauce (including [...] 07/13/2017 Document Revised: 04/24/2019 Document Reviewed: 07/13/2017 Nayatek Patient Education 2020 N[employer]k Inc. Additional Information VACCINATE! IT SAVES LIVES! Members of the community who have not yet received the COVID-19 vaccine and would like to receive it can visit one of [facility] vaccine clinics. There are many vaccine clinic locations within the [facility]. For locations and available times, please visit [email or web address]/. It is important to note that some COVID mobile vaccine clinics are held outdoors and may be canceled in rainy or stormy conditions. To learn more about pediatric vaccinations (ages 5-11), we invite you to visit the [facility] webpage. [email or web address]/pages/[email or web address]-Rslrzcuzyzb-Afwpjzqzqu-[email or web address]-Flq stions.htmlTo learn more about the COVID-19 vaccine, we invite you to visit the CDC website for a list of frequently asked questions.https://www.cdc.gov/coronavirus/2019-ncov/vaccines/faq.html [facility] Patient Portal Access Instructions: Stay connected with your healthcare team and access your personal medical information anytime with the [employer] Patient Portal. Please follow the directions below to create your [employer]uitbit account: 1.Access the email account you provided upon registration to the hospital/physician office.2.Look for an invitation email from [facility].3.Open the email and access the invitation link: AcceptInvitation to [facility] Page.4.Fill in the required hollis to create your account. To access your account, visit [email or web address]. Click the blue button labeled Access Patient [...] who you will allowto register on the [facility] [employer] Patient Portal for access to your information. You can also access the [facility] [employer] Patient Portal on the [place] [facility]where erika. Simply click on Patient Portal and then log into your account. If you would like to receive a full copy of your medical records, please contact the [facility] Medical Records Department by calling [phone], Sunday through Sunday between 8 a.m. and [...] Call your local pharmacy or go to [email or web address] to find one close to you.3.Make use of household items: Use cat litter or old coffee grounds to dispose medications if other options arenot available. Mix your drugs with these household products, seal them in an airtight container andthrow it into the garbage. Call [facility]: [phone] to be sure your drugs can be [...] Failure Action Plan Heart Failure, Self Care, Zynw-ll-Tpvk Heart Failure Eating Plan Medication Leaflets My discharge plan and instructions have been reviewed and explained to me and I,BEULAH BRIGHT understand my current condition and have read and understand these discharge instructions. I have received a written copy of the plan/instructions. If I have questions, I am aware that I should contact my doctor. Patient/Brake Lining Curer Signature: Date/Time: Relationship to Patient: Witness Name/Signature: Date/Time: [id number] Discharge summary Date of Service 06/11/2023 Discharge [...] (E11.22 - ICD-10-CM) Atherosclerotic heart disease of [place] coronary artery without angina pectoris (I25.10 - [...] Draw (one day only), Blood, Once,Preferred Lab: [facility], Stop date 06/11/23 5:00:00 EDT(Complete) Other status: CBC,06/11/23 5:00:00 EDT, Next AM Draw (one day only), Blood, Once, Preferred Lab: [facility], Stop date 06/11/23 5:00:00 EDT(Complete) Other status: Chest XR 1 View (Portable),06/11/23 8:11:00 EDT, 06/11/23 8:11:00 EDT, Routine, evaluate for pulmonary edema, Full code, Portable: Yes, MTT with Monitor, Isolation: None, IV: Yes, Oxygen: Yes, Diabetes: Yes, : N/A, Wt k.3, [facility], ME6S(Complete) Other status: OT Consult,06/10/23 9:02:00 EDT, [...] steroids. Patient was reexamined on 06/08 by concrete spreader MICU team was less concern for COPD [...] You were transfused blood seen by a pick and shovel worker and started on IV diuretics (water pills). Please follow-up with your primary care doctor, we will have you follow-up with a pick and shovel worker for your aortic stenosis (narrow heart valve). Please follow-up with your established dobby looms pegger. If you do not have an established dobby looms pegger I will provide you with information for a dobby looms pegger. Again please contact your primary care doctor [...] MD When In 2 weeks Where: [address] [facility] [place] [address]- Follow Up with ROJAS AVILA MD When In 2 weeks Where: [address] [facility] [address] [facility] [place] [address]- [phone] Follow Up with TALYA NICHOLS DO When Within 1-2 days Where: [address] [facility] [place] [address]- [phone] Follow Up Appointments No qualifying data available. [...] CHERI BROWNE MD on 06/11/2023 12:28 PM [facility] [id number] Gastroenterology Progress note Date of Service 06/11/2023 [...] extensive workup with his established GIphysician in [place]. He is currently hemodynamically stable and free [...] by MADELAINE MEI on 06/11/2023 11:27 AM [facility] [id number] Note ORIGINAL EXAMINATION: ONE XRAY VIEW OF [...] Sign Date: 06/11/2023 9:08:01 AM Ordering Provider: [facility]03-31-2024 Note Date of Service 06/10/2023 Chief [...] steroids. Patient was reexamined on 06/08 by concrete spreader MICU team was less concern for COPD [...] CHERI BROWNE MD on 06/10/2023 03:10 PM [facility] [id number] Cardiology Consult note Date of Service 06/09/2023 [...] Father and Sister. Hyperlipidemia: Mother. Hypertension: Mother. [place] - myocardial infarction: Mother. Immunizations pneumococcal 23-valent vaccine(Pneumovax: 0 unknown unit (01/31/16) pneumococcal 23-valent vaccine(Pneumovax: 0 unknown unit (07/31/14) SARS-CoV-2 mRNA (tozinameran) vaccine: 0.3 unknown unit (01/10/21) SARS-CoV-2 mRNA (tozinameran) vaccine: 0.5 unknown unit (06/19/20) SARS-CoV-2 mRNA (tozinameran) vaccine: 0.5 unknown unit (05/25/20) tetanus-diphtheria toxoids: 0 unknown unit (12/09/09) Digitally Signed by CAROL BARAHONA MD on 06/09/2023 01:03 PM [facility] [id number] Progress note SUBJECTIVE: Mr. Brihgt states his breathing is improved, but not [...] with questions. BART POOLE MD JP/NTS JOB#: [id number] DICTATION ID#: [id number] Digitally Signed by BART POOLE MD on 06/10/2023 01:30 PM [facility] [id number] NoteSINUS RHYTHM PROLONGED MT INTERVAL ABNORMAL R-WAVE PROGRESSION, EARLY TRANSITION LVH WITH SECONDARY REPOLARIZATION ABNORMALITY Electronic Signature: BART POOLE MD 06/10/2023 13:28:27[facility] 03-30-2024 Respiratory therapy Hospital Progress [...] Mesha Henry RT on 06/09/2023 10:42 PM [facility] [id number] Evaluation + Plan noteExtracted from: Title:History and [...] Transfusion floor and no further follow-up [facility] Extracted from: Title:History and Physical Author:CINDY [...] Metabolic Panel 04/13/23 * N-Terminal proBNP 04/13/23 [facility] 03-30-2024 History and physical note [...] department for furtherevaluation. He was seen at [facility] for this. Also states that he had [...] Transfusion floor and no further follow-up by [facility] service Problem List/Past Medical History Ongoing [...] Father and Sister. Hyperlipidemia: Mother. Hypertension: Mother. [place] - myocardial infarction: Mother. Immunizations pneumococcal 23-valent [...] AHMET CLARK MD on 06/09/2023 01:35 PM [facility] [id number] Cardiology Consult note Date of Service 06/09/2023 [...] Father and Sister. Hyperlipidemia: Mother. Hypertension: Mother. [place] - myocardial infarction: Mother. Immunizations pneumococcal 23-valent vaccine(Pneumovax: 0 unknown unit (01/31/16) pneumococcal 23-valent vaccine(Pneumovax: 0 unknown unit (07/31/14) SARS-CoV-2 mRNA (tozinameran) vaccine: 0.3 unknown unit (01/10/21) SARS-CoV-2 mRNA (tozinameran) vaccine: 0.5 unknown unit (06/19/20) SARS-CoV-2 mRNA (tozinameran) vaccine: 0.5 unknown unit (05/25/20) tetanus-diphtheria toxoids: 0 unknown unit (12/09/09) Digitally Signed by CAROL BARAHONA MD on 06/09/2023 01:03 PM [facility] [id number] Gastroenterology Consult note Reason for Consultation Anemia [...] of his care has been up at [facility] or at [facility]. He follows with a dobby looms pegger at [place], Dr. Joy. The patient states that despite his anemia, he has not noted any gross GI bleeding. It appears he had multiple upper endoscopies performed with his primary dobby looms pegger over the course of the past few [...] Despite his extensive workup with his primary dobby looms pegger he does not recall having a recentcolonoscopy. [...] Father and Sister. Hyperlipidemia: Mother. Hypertension: Mother. [place] - myocardial infarction: Mother. Assessment/Plan 1. Anemia He has chronic issues with anemia. Appears he had issues with upper GI bleeding which prompted hospitalization a few months back. He has been following closely with a dobby looms pegger locally. He believes that the results of [...] As detailed above, followed locally with his dobby looms pegger. PPI therapy twice daily, continue to monitor [...] NAMRATA ESPINO MD on 06/09/2023 01:02 PM [facility] [id number] Note* Exam Date Time Procedure Performing Provider Status 06/09/23 10:04 AM Echocardiogram, Adult - CV Auth (Verified) [facility] 03-30-2024 History and physical note [...] department for furtherevaluation. He was seen at [facility] for this. Also states that he had [...] Father and Sister. Hyperlipidemia: Mother. Hypertension: Mother. [place] - myocardial infarction: Mother. Immunizations pneumococcal 23-valent [...] AM Digitally Signed by AHMET CLARK MD [facility] [id number] Note ORIGINAL EXAMINATION: ONE XRAY VIEW OF [...] Date: 06/09/2023 12:03:08 AM Ordering Provider: CINDY LEWISOhiohealth Southeastern Medical [id number] Note ORIGINAL EXAMINATION: ONE XRAY VIEW OF [...] Date: 06/08/2023 2:31:11 PM [facility]ing [facility] NoteSinus rhythm Prolonged MT interval Abnormal R-wave progression, early transition LVH with secondary repolarization abnormality Electronic Signature: KIRSTY GROSS MD 06/08/2023 15:54:28[facility] 03-15-2024 Hospital Discharge instructions Patient Education [...] your ankles gets worse Dizziness or weakness [phone] [employer]. [address] [place] [address], [place] [address]. All rights reserved. This information is not intended as a substitute for professional medical care. Always follow yourhealthcare professional's instructions. Follow Up Care 05/25/2023 14:51:34 With:TALYA NICHOLS DO Address: [address] [place] [address] [place] [address]- [phone] When:2-4 days [facility] 03-15-2024 Note Discharge Instructions Thank you [...] DO When Within 2-4 days Where: [address] [facility] [place] [address]- [phone] Allergies Valturna (Numbness of hand, Numbness of [...] your ankles gets worse Dizziness or weakness [phone] [employer]. [address] [place] [address]. All rights reserved. This information is not intended as a substitute for professional medical care. Always follow yourhealthcare professional's instructions. Additional Information VACCINATE! IT SAVES LIVES! Members of the community who have not yet received the COVID-19 vaccine and would like to receive it can visit one of [facility] vaccine clinics. There are many vaccine clinic locations within the [facility]. For locations and available times, please visit www.gettheshot.coronavirus.[place].gov/. It is important to note that some COVID mobile vaccine clinics are held outdoors and may be canceled in rainy or stormy conditions. To learn more about pediatric vaccinations (ages 5-11), we invite you to visit the [facility] webpage. https://[email or web address].org/pages/[email or web address]-Iladz-Vcheifdsbpy-Ikjplirgoi-Jvnmi-Vzw stions.htmlTo learn more about the COVID-19 vaccine, we invite you to visit the CDC website for a list of frequently asked questions. https://www.cdc.gov/coronavirus/2019-ncov/vaccines/faq.html [facility] Patient Portal Access Instructions: Stay connected with your healthcare team and access your personal medical information anytime with the [facility] Patient Portal. If you would like a full copy of your medical records please contact the [facility] Medical Records Department Sunday through Sunday between 8a.m. and 4:30p.m. Please follow the directions below to access the portal: 1.Access the email account you provided upon registration to the [facility].2.Look for an invitation email from [facility].3.Open the email and access the invitation link: Accept Invitation to [facility] Page4.Fill in the required hollis to create your account. Sign into www.[employer] with your username and password that you [...] you will allow to register on the [facility] Patient Portal for access to your information. You can also access the [facility] Patient Portal on the Elephanti erika. Simply click on Health Records under HealthData and then click on the [employer] logo. HOW TO SAFELY DISPOSE OF PRESCRIPTION [...] Call your local pharmacy or go to http://bit.ly/3D9Zp6l to find one close to you.3.Make use of household items: Use cat litter or old coffee grounds to dispose medications if other options arenot available. Mix your drugs with these household products, seal them in an airtight container andthrow it into the garbage. Call [facility]: [phone] to be sure your drugs can be [...] aware that I should contact my doctor. Patient/Brake Lining Curer Signature: Date/Time: Relationship to Patient: Witness Name/Signature: Date/Time: [facility]03-15-2024 Note ORIGINAL EXAMINATION: ONE XRAY VIEW [...] Date: 05/25/2023 3:46:57 PM Ordering Provider: [facility] NoteSinus rhythm Prolonged MT interval LVH with secondary repolarization abnormality Anterior Q waves, possibly due to LVH Electronic Signature: ANNY DA SILVA MD 05/25/2023 15:32:43[facility] 02-27-2024 Hospital Discharge instructions Patient Education [...] Follow these instructions at home: Medicines Take qeng-fmb-qkjjzza and prescription medicines only as told by your health care provider. Do not stop taking your medicines or change the amount you take. If you are having problems or sideeffects from your medicines, talk to your health care provider. If you are having difficulty paying for your medicines, contact a social director or your clinic. There are many programs [...] 07/10/2017 Document Revised: 02/08/2018 Document Reviewed: 07/10/2017 Nayatek Patient Education 2020 [employer]. 05/08/2023 14:54:37 Chronic Obstructive Pulmonary Disease Exacerbation [...] Follow these instructions at home: Medicines Take zmqv-qqc-csajsol and prescription medicines only as told by [...] and water are not available, use hand air turning machine feeder. During flu season, avoid enclosed spaces that [...] 12/24/2007 Document Revised: 02/08/2018 Document Reviewed: 04/02/2017 Nayatek Patient Education 2020 [employer]. Follow Up Care 05/07/2023 09:41:27 With:TALYA NICHOLS DO Address: [address] [place] [address]- [phone] When:05/11/2023 12:30:00 Comments:This appointment can serve as your post-hospital follow-up appointment. [facility] 02-27-2024 Note Discharge Instructions Thank you for allowing [place] to assist you with your healthcare needs. [...] 05/11/2023 12:30 PM EST TALYA NICHOLS DO [address] [phone] Follow Up Appointments Follow Up with TALYA NICHOLS DO When 05/11/2023 12:30 PM EST Why: This appointment can serve as your post-hospital follow-up appointment. Where: [address] [place] [phone] The Following Activity and Diet Have Been [...] Every day Duration: 6 Days Pickup at [facility] New torsemide (torsemide 5 mg oral tablet) 1 tab(s) by mouth Every day Pickup at [facility] Changed empagliflozin (Jardiance 10 mg oral tablet) [...] making patient cough. Pharmacy Information [id number]: [address], [place] [id number] [phone] What How Much When Comments Stop Taking [...] may report side effects to FDA at 6-399-SMU-8878. What other drugs will affect prednisone? Sometimes [...] may affect prednisone. This includes prescription and qnhp-yln-isfytmi medicines, vitamins, and herbal products. Not all [...] to ensure that the information provided by [employer]. ('[employer]') is accurate, up-to-date, and complete, but no guarantee is made to that effect. Drug information contained herein may be time sensitive. [employer] information has been compiled for use by healthcare practitioners and consumers in the [place] and therefore [employer] does not warrant that uses outside of the [place] are appropriate, unless specifically indicated otherwise. [employer] drug information does not endorse drugs, diagnose patients or recommend therapy. [employer] drug information isan informational resource designed to [...] effective or appropriate for any given patient. [employer] does not assume any responsibility for any aspect of healthcare administered with the aid of information [employer] provides. The information contained herein is not intended to cover all possible uses, directions, precautions, warnings, drug interactions, allergic reactions, or adverse effects. If you have questions about the drugs you are taking, check with your doctor, nurse or pharmacist. Copyright 7040-0245 [employer]. Version: 10.. Revision Date: 06/06/2018. torsemide (oral/injection) [...] may report side effects to FDA at 2-921-CZF-2255. What other drugs will affect torsemide? Tell [...] drugs may affect torsemide. This includes prescription bgufqeu-jpf-jmbimsf medicines, vitamins, and herbal products. Not all [...] to ensure that the information provided by [employer]. ('[employer]') is accurate, up-to-date, and complete, but no guarantee is made to that effect. Drug information contained herein may be time sensitive. [employer] information has been compiled for use by healthcare practitioners and consumers in the [place] and therefore [employer] does not warrant that uses outside of the [place] are appropriate, unless specifically indicated otherwise. [employer] drug information does not endorse drugs, diagnose patients or recommend therapy. [employer] drug information isan informational resource designed to [...] effective or appropriate for any given patient. [facility] does not assume any responsibility for any aspect of healthcare administered with the aid of information [facility] provides. The information contained herein is not intended to cover all possible uses, directions, precautions, warnings, drug interactions, allergic reactions, or adverse effects. If you have questions about the drugs you are taking, check with your doctor, nurse or pharmacist. Copyright 3676-0188 [employer]. Version: 14.. Revision Date: 10/13/2022. Education Materials [...] Follow these instructions at home: Medicines Take lsov-ech-efbrezx and prescription medicines only as told by your health care provider. Do not stop taking your medicines or change the amount you take. If you are having problems or sideeffects from your medicines, talk to your health care provider. If you are having difficulty paying for your medicines, contact a social director or your clinic. There are many programs [...] 07/10/2017 Document Revised: 02/08/2018 Document Reviewed: 07/10/2017 [employer] Patient Education 2020 [employer] Chronic Obstructive Pulmonary Disease Exacerbation Chronic [...] Follow these instructions at home: Medicines Take zxvp-eel-awjhbjy and prescription medicines only as told by [...] and water are not available, use hand air turning machine feeder. During flu season, avoid enclosed spaces that [...] 12/24/2007 Document Revised: 02/08/2018 Document Reviewed: 04/02/2017 [employer] Patient Education 2020 [employer]. Additional Information VACCINATE! IT SAVES LIVES! Members of the community who have not yet received the COVID-19 vaccine and would like to receive it can visit one of [facility] vaccine clinics. There are many vaccine clinic locations within the [facility]. For locations and available times, please visit https://gettheshot.coronavirus.[place].gov/. It is important to note that some COVID mobile vaccine clinics are held outdoors and may be canceled in rainy or stormy conditions. To learn more about pediatric vaccinations (ages 5-11), we invite you to visit the [facility] webpage. https://www.[facility].org/pages/0082-Ssukj-Vfnywwqpytm-Qwoeaotiug-Mqrqp-Qhx stions.htmlTo learn more about the COVID-19 vaccine, we invite you to visit the CDC website for a list of frequently asked questions.https://www.cdc.gov/coronavirus/2019-ncov/vaccines/faq.html [employer] Patient Portal Access Instructions: Stay connected with your healthcare team and access your personal medical information anytime with the [facility] Patient Portal. Please follow the directions below to create your [facility] account: 1.Access the email account you provided upon registration to the hospital/physician office.2.Look for an invitation email from [facility].3.Open the email and access the invitation link: AcceptInvitation to [employer]bit.4.Fill in the required hollis to create your account. To access your account, visit [employer]. Click the blue button labeled Access Patient Portal and then log in with the username and password that you created in the steps above (more content not included)... [facility]02-26-2024 Note Date of Service 05/07/2023 Chief Complaint has been having dispnea for a couple weks been at [facility] for it History of Present Illness Patient is an 82-year-old male, who follows with Dr. Talya Nichols with a past medical history significant for type 2 diabetes, congestive heart failure, COPD, chronic kidney disease and hypothyroidism, presented to [facility] emergency department with the chief complaint of [...] shortness of breath. Patient was over at [facility] today for a post-hospitalization visit. [...] interpretation. EKG EC05/07/23: Sinus rhythm Borderline prolonged MT interval Posterior infarct, old Nonspecific T abnormalities, [...] Father and Sister. Hyperlipidemia: Mother. Hypertension: Mother. IA - myocardial infarction: Mother. Immunizations pneumococcal 23-valent [...] by DELIA JEFFERSON on 05/07/2023 09:04 PM [facility]02-26-2024 Evaluation + Plan noteExtracted from: Title:History [...] Date:05/11/2023 12:30:00 PM Scheduled Provider:TALYA NICHOLS DO Location:[facility] Appointment Type:[facility] Hospital Follow-Up Future Scheduled Tests Laboratory* [...] Metabolic Panel 04/13/23 * N-Terminal proBNP 04/13/23 [facility] 02-26-2024 Note ORIGINAL EXAMINATION: ONE XRAY [...] Date: 05/07/2023 10:53:51 AM [facility] Note Sinus rhythm Borderline prolonged MT interval Posterior infarct, old Nonspecific T abnormalities, lateral leads Electronic Signature: KIRSTY GROSS MD 05/07/2023 11:42:23[facility] 02-20-2024 Discharge summary Author Frederick Logan [facility] May 01, 2023 2:55am Note Date/Time May 01, 2023 12:51am [facility] Medical Records Department [address] [place] [address] Emergency Department Summary 04/30/23 MR#: [id number] Acct: [id number] Name: BEULAH BRIGHT Rep #:[id number] : 1940 82 From: Frederick Logan [...] pain nausea or vomiting associated with this [facility] Medical History Acute and chronic respiratory failure with hypoxia Aortic valve stenosis, acquired Atherosclerotic heart disease of [place] coronary artery without angina pectoris CAD (coronary [...] SOB 05/02/21 [History Last Taken 02/15/23] vitamins A,C,E-iigd-eecplq 4,296 mcg-226 mg-90 mg capsule (PreserVision AREDS) [...] % (Auto) 60.3 Lymph % (Auto) 24.1 [place] % (Auto) 9.3 Eos % (Auto) 5.6 [...] 2 cap PO BID PreserVision AREDS 14,320-226-200 yteo-tc-facb Capsule 1 cap PO BID lisinopril [Zestril] [...] your Primary Care Provider. Call [facility] ([phone]) or report to the closest Emergency Room. Call 911 if necessary. 05/01/23 0255 <Electronically signed by Frederick Logan DO> Cosigner Signature (if applicable): CC: Dr. Talya Nichols, ~ Signed [facility] Work Phone: 1(965) 214-178502-15-2024 Progress note Author Trell Kendrick [facility] April 26, 2023 8:01am Note Date/Time April 26, 2023 7:46am [facility] Medical Records Department [address] [facility] [place] [address] Progress Note - Cardiology 04/26/23739 MR#: [id number] Acct: [id number] Name: BEULAH BRIGHT Rep #:[id number] : 1940 82 From: Trell Kendrick MD PCP: Dr. Talya Nichols, Status:ADM IN Location: [place] [address] Subjective Subjective The patient was examined with [...] (Auto) 68.9, Lymph % (Auto) 17.5 L, [place] % (Auto) 8.3, Eos % (Auto) 4.4, [...] (Auto) 68.9, Lymph % (Auto) 17.5 L, [place] % (Auto) 8.3, Eos % (Auto) 4.4, [...] This can be followed up by his pick and shovel worker in the [place] group. I went over again the importance [...] Dr. Joy thepatient should follow-up with his [place] pick and shovel worker to determine if iron replacement therapy would be of benefit to help with his heart failure. PLAN: Plan From a cardiovascular standpoint the patient can be discharged to home. The patient should continue with his home oxygen. The patient needs to get a basic metabolic panel done in 1 week and follow-up with his scales inspector. He should make certain he and includes his new medical regiment when he follows up with the scales inspector and his pick and shovel worker at [place]. Charges/Coding Visit Charges Inpatient E&M: 04716 Subs Hosp L3 04/26/23 0801 <Electronically signed by Trell Kendrick MD> Cosigner Signature (if applicable): CC: ~ Signed [facility] Work Phone: 1(206) 921-291102-14-2024 Progress note Author John Anders [facility] April 25, 2023 1:58pm Note Date/Time April 25, 2023 1:51pm [facility] Medical Records Department [address] [place] [address] Progress Note - Hospitalist 04/25/23 1348 MR#: [id number] Acct: [id number] Name: BEULAH BRIGHT Rep #:[id number] : 1940 82 From: John foster MD PCP: Dr. Talya Nichols, DO Status:ADM IN Location: [place] [address] Subjective Subjective Breathing little bit better, discussed [...] 76.7 H, Lymph % (Auto) 12.0 L, [place] % (Auto) 6.1, Eos % (Auto) 4.5, [...] (Auto) 68.9, Lymph % (Auto) 17.5 L, [place] % (Auto) 8.3, Eos % (Auto) 4.4, [...] DVT: Heparin Charges/Coding Visit Charges Inpatient E&M: 85682 Subs Hosp L2 04/25/23 1551 <Electronically signed by John Anders MD> Cosigner Signature (if applicable): CC: ~ Signed [facility] Work Phone: 1(451) 459-505702-14-2024 Consult note Author Trell Kendrick [facility] April 25, 2023 9:09am Note Date/Time April 25, 2023 9:03am [facility] Medical Records Department [address] [place] [address] Consultation - Cardiology 04/25/23 0841 MR#: [id number] Acct: [id number] Name: BEULAH BRIGHT Rep #:[id number] : 1940 82 From: Trell Kendrick MD PCP: Dr. Talya Nichols, DO Status:ADM IN Location: [place] [address] Assessment & Plan Assessment/Plan (1) Acute on [...] has changed his cardiovascular care from the [facility] to [facility] where he sees a pick and shovel worker from [place]. The patient also carries a history of [...] for some type of procedure at in [place] in the near future. (4) Anemia: QUALIFIERS: [...] 25. This is being followed by the [place] cardiology group according tothe patient's report. (7) Atherosclerotic heart disease of [place] coronary artery without angina pectoris: QUALIFIERS: [place] vs. transplanted heart: [place] heart QualifiedCode(s): I25.10 - Atherosclerotic heart disease of [place] coronary artery without angina pectoris PLAN: The [...] is managed by the primary service and [place] pick and shovel worker he is on intensive statin therapy which should be continued as tolerated. (9) Carotid artery stenosis: QUALIFIERS: Laterality: bilateral Qualified Code(s): I65.23 - Occlusion and stenosis of bilateral carotid arteries PLAN: Carotid ultrasound revealed bilateral greater than 70% stenoses in February 2023. The patient is not a candidate for antiplatelet therapy at this point in time the patient should be followed by the [place] cardiology group forlong-term management. He denies any [...] need to be followed up by the [place] cardiology group. 5. The patient is to [...] needed the patient will follow-up with his [place] pick and shovel worker after discharge at his request. HPI Consult Data Date of Consult: 04/25/23 HPI Narrative Reason for Consultation: SOB presumed CHF exacerbation HPI Narrative: BEULAH BRIGHT, is a 82 M who presents with what sounds to be acute decompensation of his heart failure with preserved ejection fraction. He was atthe scales inspector office yesterday and walking out developed profound [...] June 2022 was being evaluated in the [facility] office. He was on beta-greta [...] a heart rate between 90 and 105. [facility] Medical History Acute and chronic respiratory failure with hypoxia Aortic valve stenosis, acquired Atherosclerotic heart disease of [place] coronary artery without angina pectoris CAD (coronary [...] (1,000 unit) capsule 25 mcg PO DAILY idomzmm34/21/22 [History Last Taken 02/15/23] ipratropium 0.5 mg-albuterol [...] SOB 05/02/21 [History Last Taken 02/15/23] vitamins A,C,S-mwak-tcigac 4,296 mcg-226 mg-90 mg capsule (PreserVision AREDS) [...] 13% Risk Charges/Coding Visit Charges Inpatient E&M: 28469 Init Hosp L3 Objective Data Vital Signs: [...] 76.7 H, Lymph % (Auto) 12.0 L, [place] % (Auto) 6.1, Eos % (Auto) 4.5, [...] (Auto) 68.9, Lymph % (Auto) 17.5 L, [place] % (Auto) 8.3, Eos % (Auto) 4.4, [...] 76.7 H, Lymph % (Auto) 12.0 L, [place] % (Auto) 6.1, Eos % (Auto) 4.5, [...] (Auto) 68.9, Lymph % (Auto) 17.5 L, [place] % (Auto) 8.3, Eos % (Auto) 4.4, [...] 17:33 EST Reading Location ID and State: [facility] Tel , Service support , EKG Initial [...] Nichols DO; Dr. Trell Kendrick MD~ Signed [facility] Work Phone: 1([phone]) 119-893202-13-2024 History and physical note Author Michelle Washburn [facility] April 24, 2023 8:07pm Note Date/Time April 24, 2023 8:07pm [facility] Medical Records Department [address] [place] [address] H&P Exam - Hospitalist 04/24/231948 MR#: [id number] Acct: [id number] Name: BEULAH BRIGHT Rep #:[id number] : 1940 82 From: Michelle Washburn DO PCP: Dr. Talya Nichols DO Status:ADM IN Location: [place] [id number]- [id number] HPI - General General Date of Admission: 04/24/23 Date of Service: 04/24/23 Chief Complaint: Shortness of breath HPI Narrative BEULAH BRIGHT, is a 82 M who presented to the emergency department at [facility] on 04/24/2023 complaining of shortness of [...] shows first-degree heart block with a prolonged MT interval, normal QT interval with mild tachycardia and no ST-T wave changes concerning foracute ischemia. He was given IV Lasix 40 mg x 1 dose in the emergency department and request foradmission was made. As noted the patient is concerned that his Lasix is not working so I will transition to Bumex and give another 2 mg at the time of admission. [facility] Medical History Acute and chronic respiratory failure with hypoxia Aortic valve stenosis, acquired Atherosclerotic heart disease of [place] coronary artery without angina pectoris CAD (coronary [...] (1,000 unit) capsule 25 mcg PO DAILY rskrgan72/21/22 [History Last Taken 02/15/23] ipratropium 0.5 mg-albuterol [...] SOB 05/02/21 [History Last Taken 02/15/23] vitamins A,C,U-usmi-kvuflb 4,296 mcg-226 mg-90 mg capsule (PreserVision AREDS) [...] 76.7 H, Lymph % (Auto) 12.0 L, [place] % (Auto) 6.1, Eos % (Auto) 4.5, [...] with patient Charges/Coding Visit Charges Inpatient E&M: 45192 Init Hosp L2 04/24/232006 <Electronically signed by Michelle Washburn DO> Cosigner Signature (if applicable): CC: Dr. Michelle Washburn DO; Dr. Talya Nichols DO~ Signed [facility] Work Phone: 1(285) 791-260602-13-2024 Discharge summary Author Jr William [facility] April 24, 2023 8:00pm Note Date/Time April 24, 2023 4:47pm [facility] Medical Records Department [address] [place] [address] Emergency Department Summary 04/24/23 MR#: [id number] Acct: [id number] Name: BEULAH BRIGHT Rep #:[id number] : 1940 82 From: Jr Thomas DO PCP: Dr. Talya Nichols DO Status:ADM IN Location: [address] History of Present Illness Chief Complaint: Shortness of Breath Narrative Narrative: 82-year-old male with history of GI bleed, CHF, COPD, aortic stenosis, hyperlipidemia, CKD presenting with dyspnea. Patient states it started prior toarrival. Patient states he went to see his scales inspector today although we cannot remember the scales inspector name. He states that somebody at [facility] who comes out to [place]. He states he want to have him do blood work in about 3 weeks and go to the [facility] to have something taken care of [...] or bloody stools that he knows of. [facility] Medical History Acute and chronic respiratory failure with hypoxia Aortic valve stenosis, acquired Atherosclerotic heart disease of [place] coronary artery without angina pectoris CAD (coronary [...] (1,000 unit) capsule 25 mcg PO DAILY cguhsgm01/21/22 [History Last Taken 02/15/23] ipratropium 0.5 mg-albuterol [...] SOB 05/02/21 [History Last Taken 02/15/23] vitamins A,C,K-jrxe-sjvdqk 4,296 mcg-226 mg-90 mg capsule (PreserVision AREDS) [...] 76.7 H Lymph % (Auto) 12.0 L [place] % (Auto) 6.1 Eos % (Auto) 4.5 [...] 17:33 EST Reading Location ID and State: [address] [place] [address] Tel , Service support , Discharge Plan Disposition Disposition: Acute Care Hospital [facility] Discharge Date/Time: 04/24/23 19:57 What to do if you have Problems For any increased pain, shortness of breath, bleeding, nausea or vomiting, chestpain, or any unexpected problems, contact your Primary Care Provider. Call [facility] ([phone]) or report to the closest Emergency Room. Call 911 if necessary. 04/24/231999 <Electronically signed by rJ Thomas DO> Cosigner Signature (if applicable): CC: Dr. Talya Nichols DO ~ Signed [facility] Work Phone: 1(188) 155-362701-27-2024 Discharge summary Author Dimitry Lott [facility] April 07, 2023 3:47pm Note Date/Time April 07, 2023 1 :56pm [facility] Medical Records Department [address] [place] [address] Emergency Department Summary 04/07/23 MR#: [id number] Acct: [id number] Name: BEULAH BRIGHT Rep #:[id number] : 1940 82 From: Dimitry Lott [...] valve stenosis, acquired Atherosclerotic heart disease of [place] coronary artery without angina pectoris CAD (coronary [...] (1,000 unit) capsule 25 mcg PO DAILY vbcovpa31/21/22 [History Last Taken 02/15/23] ipratropium 0.5 mg-albuterol [...] SOB 05/02/21 [History Last Taken 02/15/23] vitamins A,C,O-mcgf-oaetps 4,296 mcg-226 mg-90 mg capsule (PreserVision AREDS) [...] % (Auto) 63.9 Lymph % (Auto) 22.1 [place] % (Auto) 7.4 Eos % (Auto) 5.8 [...] rate of 106 no acute signs of IA or ischemia. This may be a junctional [...] 2 cap PO BID PreserVision AREDS 14,320-226-200 zout-ht-ypru Capsule 1 cap PO BID lisinopril [Zestril] [...] your Primary Care Provider. Call [facility] ([phone]) or report to the closest Emergency Room. Call 911 if necessary. 04/07/23 9787 <Electronically signed by Dimitry Lott MD> Cosigner Signature (if applicable): CC: Dr. Talya Nichols DO ~ Signed [facility] Work Phone: 1(514) 299-937201-22-2024 Procedure [facility] 04-02-2023 Procedure [facility]12-29-2023 Consult note Author Radha Patricio [facility] March 09, 2023 2:22pm Note Date/Time March 09, 2023 2:22pm [facility] Medical Records Department [address] [place] [address] Counseling Note - Pharmacy 03/09/23 1422 MR#: [id number] Acct: [id number] Name: BEULAH BRIGHT Rep #:[id number] : 1940 82 From: Radha Patricio PCP: Dr. Talya Nichols DO Status:ADM IN Y Location: [place] [address] Pharmacy HI Med Reconciliation Pharmacy Service has performed discharge medication reconciliation for this patient. No new medications at time of discharge reivew. The patient's discharge medication list was reviewed for discrepancies and discrepancies were resolved. Medications at Discharge Home Medications atorvastatin 80 mg tablet 80 mg PO DAILY CHOLESTEROL 05/02/21 cholecalciferol (vitamin D3) 25 mcg (1,000 unit) capsule 25 mcg PO DAILY mwenvkb54/21/22 ipratropium 0.5 mg-albuterol 3 mg (2.5 mg base)/3 mL nebulization soln 3 ml inhalation 4X/DAY PRN sob 05/02/21 liothyronine 25 mcg tablet 25 mcg PO DAILY THYROID 05/02/21 omega-3 fatty acids-vitamin E 1,000 mg capsule 2 cap PO BID SUPPLEMENT 05/02/21 tiotropium bromide 18 mcg capsule with inhalation device (Spiriva with HandiHaler) 18 mcg inhalation DAILY SOB 05/02/21 vitamins A,C,U-efpz-deociy 4,296 mcg-226 mg-90 mg capsule (PreserVision AREDS) [...] Signature (if applicable): Date CC: ~ Signed [facility] Work Phone: 1(109) 149-601412-29-2023 Discharge summary Author Fred Ramso [facility] March 09, 2023 12:25pm Note Date/Time March 09, 2023 12:25pm [facility] Medical Records [place] [address] Discharge Summary 03/09/23 1221 MR#: [id number] Acct: [id number] Name: BEULAH BRIGHT Rep #:[id number] : 1940 82 From: Fred Galvan PCP: Dr. Talya Nichols, DO Status:ADM IN Location: [place] [address] Providers Date of Admission: 03/07/23 Date of Discharge: 03/09/23 Primary Care Physician: Dr. Talya Nichols, DO Consultations 03/07/23 22:12 Consult: Gastroenterology Routine Consulting Provider: [facility] Reason for Consult: Recurrent upper GI [...] is an 82-year-old male who presented to [facility] ED on03/07/2023 with worsening shortness of [...] (1,000 unit) capsule 25 mcg PO DAILY hzonmsd55/21/22 ipratropium 0.5 mg-albuterol 3 mg (2.5 mg base)/3 mL nebulization soln 3 ml inhalation 4X/DAY PRN sob 05/02/21 liothyronine 25 mcg tablet 25 mcg PO DAILY THYROID 05/02/21 omega-3 fatty acids-vitamin E 1,000 mg capsule 2 cap PO BID SUPPLEMENT 05/02/21 tiotropium bromide 18 mcg capsule with inhalation device (Spiriva with HandiHaler) 18 mcg inhalation DAILY SOB 05/02/21 vitamins A,C,C-wqte-zcifxv 4,296 mcg-226 mg-90 mg capsule (PreserVision AREDS) [...] % (Auto) 57.7, Lymph % (Auto) 25.7, [place] % (Auto) 9.8, Eos % (Auto) 5.8 [...] 2 cap PO BID PreserVision AREDS 14,320-226-200 bbmi-aw-onux Capsule 1 cap PO BID lisinopril [Zestril] [...] Self Care Charges/Coding Visit Charges Inpatient E&M: 60923 Disch Hosp >30min 03/09/23 1225 <Electronically signed by Fred Ramos MD> Cosigner Signature (if applicable): CC: Dr. Talya Nichols DO; Dr. Fred Ramos MD~ Signed [facility] Work Phone: 1(495) 425-672912-29-2023 Discharge summary Author Fred Ramos [facility] March 09, 2023 12:21pm Note Date/Time March 09, 2023 12:16pm [facility] Medical Records Department [address] [place] [address] Instructions for Home/Discharge Instructions 03/09/23 0915 MR#: [id number] Acct: [id number] Name: BEULAH BRIGHT Rep #:[id number] : 1940 82 From: Fred Galvan [...] 2 cap PO BID PreserVision AREDS 14,320-226-200 dgph-wo-fyqg Capsule 1 cap PO BID lisinopril [Zestril] [...] DO; Dr. Talya Nichols DO ~ Signed [facility] Work Phone: 1([phone]) 163-683612-28-2023 Consult note Author Fredy Friend [facility] March 08, 2023 4:49pm Note Date/Time March 08, 2023 4:46pm [facility] Medical Records Department [facility] [place] [address] Consultation - GI 03/07/23 2350 MR#: [id number] Acct: [id number] Name: BEULAH BRIGHT Rep #:[id number] : 1940 82 From: Fredy Friend DO PCP: Dr. Talya Nichols, DO Status:ADM IN Location: [place] [id number]- [id number] HPI Consult Data Date of Consult: [...] in the ED were temp of 98.1F, MT of 99, BP of 132/64, RR of [...] in the stomach that were endoscopically treated. [facility] Medical History Acute and chronic respiratory failure with hypoxia Aortic valve stenosis, acquired Atherosclerotic heart disease of [place] coronary artery without angina pectoris CAD (coronary [...] (1,000 unit) capsule 25 mcg PO DAILY pctolyg88/21/22 [History Last Taken 02/15/23] ipratropium 0.5 mg-albuterol [...] SOB 05/02/21 [History Last Taken 02/15/23] vitamins A,C,B-tthn-ugoajl 4,296 mcg-226 mg-90 mg capsule (PreserVision AREDS) [...] % (Auto) 63.7, Lymph % (Auto) 25.2, [place] % (Auto) 8.2, Eos % (Auto) 2.5, [...] 19:54 EST Reading Location ID and State: [address] [place] [address] Tel , Service support , Assessment & [...] CHF, CAD status post non-ST segment elevation IA on medical therapy, COPD on oxygen who [...] of 3. Charges/Coding Visit Charges Inpatient E&M: 15760 Init Hosp L3 03/08/23 4442 <Electronically signed by Fredy Joy DO> Cosigner Signature (if applicable): CC: Dr. Romario Blancas DO; Dr. Talya Nichols, DO~ Signed [facility] Work Phone: 1(505) 816-666812-28-2023 Progress note Author Fred Ramos [facility] March 08, 2023 4:12pm Note Date/Time March 08, 2023 8:25am [facility] Medical Records Department [address] [place] [address] Progress Note - Hospitalist 03/08/23 0824 MR#: [id number] Acct: [id number] Name: BEULAH BRIGHT Rep #:[id number] : 1940 82 From: Fred Galvan PCP: Dr. Talya Nichols DO Status:ADM IN Location: [place] [address] Reason for Visit Reason for Visit: Diagnoses [...] % (Auto) 63.7, Lymph % (Auto) 25.2, [place] % (Auto) 8.2, Eos % (Auto) 2.5, [...] is an 82-year-old male who presented to [facility] ED on03/07/2023 with worsening shortness of [...] % (Auto) 63.7, Lymph % (Auto) 25.2, [place] % (Auto) 8.2, Eos % (Auto) 2.5, [...] Comment SCANNED Charges/Coding Visit Charges Inpatient E&M: 12605 Subs Hosp L2 03/08/23 1612 <Electronically signed by Fred Ramos MD> Cosigner Signature (if applicable): CC: ~ Signed [facility] Work Phone: 1(323) 805-332812-28-2023 Procedure [facility] 03-08-2023 Procedure [facility]12-28-2023 History and physical note Author [facility] 08, 2023 2:17am Note Date/Time March 07, 2023 8:41pm [facility] Medical Records Department [address] [place] [address] H&P Exam - Hospitalist 03/07/232040 MR#: [id number] Acct: [id number] Name: BEULAH BRIGHT Rep #:[id number] 2 : 1940 82 From: Romario house DO PCP: Dr. Talya Nichols, DO Status:ADM IN Location: [place] [id number]- 1 HPI - General General Date of Admission: 03/07/23 Date of Service: 03/07/23 Chief Complaint: Worsening shortness of breath, dark stools HPI Narrative BEULAH BRIGHT, is a 82 M who presented to [facility] ED on 03/07/2023 with worsening shortness [...] at this time. No other acute concerns. [facility] Medical History Acute and chronic respiratory failure with hypoxia Aortic valve stenosis, acquired Atherosclerotic heart disease of [place] coronary artery without angina pectoris CAD (coronary [...] SOB 05/02/21 [History Last Taken 02/15/23] vitamins A,C,C-wyrj-xmwgol 4,296 mcg-226 mg-90 mg capsule (PreserVision AREDS) [...] % (Auto) 63.7, Lymph % (Auto) 25.2, [place] % (Auto) 8.2, Eos % (Auto) 2.5, [...] 19:54 EST Reading Location ID and State: [address] [place] [address] Tel , Service support , Assessment & Plan Assessment/Plan (1) Acute on chronic blood loss anemia: (2) Acute upper gastrointestinal bleeding: PLAN: Plan Patient is an 82-year-old male who presented to [facility] ED on03/07/2023 with worsening shortness of [...] 55 minutes. Charges/Coding Visit Charges Inpatient E&M: 45326 Init Hosp L2 03/08/23 0217 <Electronically signed by Romario Blancas DO> Cosigner Signature (if applicable): CC: Dr. Romario Blancas, ; Dr. Talya Nichols, ~ Signed [facility] Work Phone: [phone]) 125-863412-27-2023 Discharge summary Author Eric Lester [facility] March 07, 2023 8:49pm Note Date/Time March 07, 2023 6:50pm [facility] Medical Records Department [address] [place] [address] Emergency Department Summary 03/07/23 MR#: [id number] Acct: [id number] Name: BEULAH BRIGHT Rep #:[id number] 8 : 1940 82 From: Eric Lester MD PCP: Dr. Tayla Nichols, DO Status:REG ER Location: ED HPI [...] Overall he is a very poor historian. [facility] Medical History Acute and chronic respiratory failure with hypoxia Aortic valve stenosis, acquired Atherosclerotic heart disease of [place] coronary artery without angina pectoris CAD (coronary [...] (1,000 unit) capsule 25 mcg PO DAILY povgzmb82/21/22 [History Last Taken 02/15/23] ipratropium 0.5 mg-albuterol [...] SOB 05/02/21 [History Last Taken 02/15/23] vitamins A,C,X-nqcz-yxscye 4,296 mcg-226 mg-90 mg capsule (PreserVision AREDS) [...] % (Auto) 63.7 Lymph % (Auto) 25.2 [place] % (Auto) 8.2 Eos % (Auto) 2.5 [...] Management Discussion w/another healthcare provider: Hospitalist and Custom Framing Specialist (GI friend) Critical Care Time Critical Care Time: Yes Critical care time (excluding procedures): 30-74 minutes (32 min), Including time spent:, Discussing w/Patient &/or Family/Material Expediter, Discussing w/Consultants, Arranging Admission or Transfer and Performing Direct Patient Care at Bedside Discharge Plan Dx/Rx/DC Orders Clinical Impression: Acute on chronic blood loss anemia, COPD (chronic obstructive pulmonary disease), Acute upper gastrointestinal bleeding, Symptomatic anemia Disposition Disposition: Acute Care [facility] What to do if you have Problems For any increased pain, shortness of breath, bleeding, nausea or vomiting, chestpain, or any unexpected problems, contact your Primary Care Provider. Call [facility] ([phone]) or report to the closest Emergency Room. Call 911 if necessary. 03/07/232048 <Electronically signed by Eric Lester MD> Cosigner Signature (if applicable): CC: Dr. Talya Nichols, DO ~ Signed [facility] Work Phone: 1([phone]) 748-679012-27-2023 Discharge summary Author Eric Lester [facility] March 07, 2023 8:49pm Note Date/Time March 07, 2023 6:50pm [facility] Medical Records Department [address] [place] [address] Emergency Department Summary 03/07/23 MR#: [id number] Acct: [id number] Name: BEULAH BRIGHT Rep #:[id number] 8 : 1940 82 From: Eric Lester [...] Overall he is a very poor historian. [facility] Medical History Acute and chronic respiratory failure with hypoxia Aortic valve stenosis, acquired Atherosclerotic heart disease of [place] coronary artery without angina pectoris CAD (coronary [...] (1,000 unit) capsule 25 mcg PO DAILY qforpnc90/21/22 [History Last Taken 02/15/23] ipratropium 0.5 mg-albuterol [...] SOB 05/02/21 [History Last Taken 02/15/23] vitamins A,C,K-hnwj-nlwkng 4,296 mcg-226 mg-90 mg capsule (PreserVision AREDS) [...] % (Auto) 63.7 Lymph % (Auto) 25.2 [place] % (Auto) 8.2 Eos % (Auto) 2.5 [...] Management Discussion w/another healthcare provider: Hospitalist and Custom Framing Specialist (GI friend) Critical Care Time Critical Care Time: Yes Critical care time (excluding procedures): 30-74 minutes (32 min), Including time spent:, Discussing w/Patient &/or Family/Material Expediter, Discussing w/Consultants, Arranging Admission or Transfer and Performing Direct Patient Care at Bedside Discharge Plan Dx/Rx/DC Orders Clinical Impression: Acute on chronic blood loss anemia, COPD (chronic obstructive pulmonary disease), Acute upper gastrointestinal bleeding, Symptomatic anemia Disposition Disposition: [facility] Care [facility] What to do if you have Problems For any increased pain, shortness of breath, bleeding, nausea or vomiting, chestpain, or any unexpected problems, contact your Primary Care Provider. Call [facility] ([phone]) or report to the closest Emergency Room. Call 911 if necessary. 03/07/232048 <Electronically signed by Eric Lester MD> Cosigner Signature (if applicable): CC: Dr. Talya Nicohls, DO ~ Signed [facility] Work Phone: 1([phone]) 189-301212-07-2023 Discharge summary Author Anthony Sosa [facility] February 15, 2023 3:36pm Note Date/Time February 15, 2023 3 :02pm [facility] Medical Records Department [address] [place] [address] Instructions for Home/Discharge Instructions 02/15/23 1500 MR#: [id number] Acct: [id number] Name: BEULAH BRIGHT Rep #:[id number] 4 : 1940 82 From: Anthony Sosa [...] 2 cap PO BID PreserVision AREDS 14,320-226-200 uyie-wx-eogl Capsule 1 cap PO BID lisinopril [Zestril] [...] Landa, ; Dr. Talya Nichols, ~ Signed [facility] Work Phone: 1([phone]) 419-548812-06-2023 Progress [facility] February 14, 2023 4:26pm Note Date/Time February 14, 2023 4 :19pm [facility] Medical Records Department [address] [place] [address] Progress Note - Hospitalist 02/14/23 1618 MR#: [id number] Acct: [id number] Name: BEULAH BRIGHT Rep #:[id number] 8 : 1940 82 From: Anthony Sosa [...] (Auto) 83.1 H, Lymph %(Auto) 5.0 L, [place] % (Auto) 8.3, Eos % (Auto) 3.2, [...] Clarity Clear, Urine pH 5.0, Ur Specific Molino 1.015, Urine Protein 30 H, Urine Glucose [...] 92.3 H, Lymph % (Auto) 4.7 L, [place] % (Auto) 1.3, Eos % (Auto) 1.3, [...] 35 minutes Charges/Coding Visit Charges Inpatient E&M: 82284 Subs Hosp L2 02/14/23 1626 <Electronically signed by Anthony Sosa DO> Cosigner Signature (if applicable): CC: ~ Signed [facility] Work Phone: 1(183) 206-622312-06-2023 History and physical note Author Erika Amin [facility] February 14, 2023 5:51am Note Date/Time February 13, 2023 1 0:54pm [facility] Medical Records Department [address] [place] [address] H&P Exam - Hospitalist 02/13/23 2248 MR#: [id number] Acct: [id number] Name: BEULAH BRIGHT Rep #:[id number] 8 : 1940 82 From: Erika Talbert [...] cannula continuously, coronary artery disease; status post IA with left heart cath in March 2022, chronic diastolic CHF; withpreserved left ventricular ejection fraction, history of stenosis of aortic valve, history of TIA, chronic kidney disease; stage IV with a baseline creatinine of 2.88 mg/dL and a BUN of 97 mg/dL last week, GERD; with history of GI bleed secondary to gastric ulcers and osteoarthritis who presents to [facility] ER complaining of severe shortness of [...] expected to be greater than 48 hours. [facility] Medical History (Updated 02/14/23 @ 00:[address] Erika Landa, DO) Aortic valve stenosis, acquired Atherosclerotic heart disease of [place] coronary artery without angina pectoris CAD (coronary [...] (1,000 unit) capsule 25 mcg PO DAILY otjycjv49/21/22 [History Last Taken 05/24/22] ipratropium 0.5 mg-albuterol [...] SOB 05/02/21 [History Last Taken 05/24/22] vitamins A,C,K-drpr-zrbblb 4,296 mcg-226 mg-90 mg capsule (PreserVision AREDS) [...] (Auto) 83.1 H, Lymph %(Auto) 5.0 L, [place] % (Auto) 8.3, Eos % (Auto) 3.2, [...] Clarity Clear, Urine pH 5.0, Ur Specific Molino 1.015, Urine Protein 30 H, Urine Glucose [...] Reading Location ID and State: 1144 / [place] [employer] [place] Tel , Service support , Assessment & [...] of known coronary artery disease with previous IA and aortic stenosis - Serialize troponin. Check [...] 75 minutes. Charges/Coding Visit Charges Inpatient E&M: 14106 Init Hosp L3 02/14/23 0551 <Electronically signed by Erika Landa DO> Cosigner Signature (if applicable): CC: Dr. Erika Landa DO; Dr. Talya Nichols DO~ Signed [facility] Work Phone: 1([phone]) 425-489712-06-2023 Discharge summary Author Jr Thomas [facility] February 13, 2023 11:05pm Note Date/Time February 13, 2023 8 :50pm [facility] Medical Records Department [address] [place] [address] Emergency Department Summary 02/13/23 MR#: [id number] Acct: [id number] Name: BEULAH BRIGHT Rep #:[id number] 7 : 1940 82 From: Jr Thomas [...] at this time. Denies chest pain currently. [facility] Medical History Aortic valve stenosis, acquired Atherosclerotic heart disease of [place] coronary artery without angina pectoris CAD (coronary [...] (1,000 unit) capsule 25 mcg PO DAILY anrxwto13/21/22 [History Last Taken 05/24/22] ipratropium 0.5 mg-albuterol [...] SOB 05/02/21 [History Last Taken 05/24/22] vitamins A,C,H-xksi-gnydea 4,296 mcg-226 mg-90 mg capsule (PreserVision AREDS) [...] 83.1 H Lymph % (Auto) 5.0 L [place] % (Auto) 8.3 Eos % (Auto) 3.2 [...] Clarity Clear Urine pH 5.0 Ur Specific Molino 1.015 Urine Protein 30 H Urine Glucose [...] 2 cap PO BID PreserVision AREDS 14,320-226-200 tyyk-ib-kdoh Capsule 1 cap PO BID lisinopril [Zestril] [...] your Primary Care Provider. Call [facility] ([phone]) or report to the closest Emergency Room. Call 911 if necessary. 02/13/23 2305 <Electronically signed by Jr Thomas DO> Cosigner Signature (if applicable): CC: Dr. Talya Nichols DO ~ Signed [facility] Work Phone: [phone] 609-241912-05-2023 Discharge summary Author Jr Thomas [facility] February 13, 2023 11:05pm Note Date/Time February 13, 2023 8 :50pm [facility] Medical Records Department [address] [place] [address] Emergency Department Summary 02/13/23 MR#: [id number] Acct: [id number] Name: BEULAH BRIGHT Rep #:[id number] 7 : 1940 82 From: Jr Thomas [...] at this time. Denies chest pain currently. [facility] Medical History Aortic valve stenosis, acquired Atherosclerotic heart disease of [place] coronary artery without angina pectoris CAD (coronary [...] (1,000 unit) capsule 25 mcg PO DAILY alzibxe60/21/22 [History Last Taken 05/24/22] ipratropium 0.5 mg-albuterol [...] SOB 05/02/21 [History Last Taken 05/24/22] vitamins A,C,U-zghp-sogfhu 4,296 mcg-226 mg-90 mg capsule (PreserVision AREDS) [...] 83.1 H Lymph % (Auto) 5.0 L [place] % (Auto) 8.3 Eos % (Auto) 3.2 [...] Clarity Clear Urine pH 5.0 Ur Specific Molino 1.015 Urine Protein 30 H Urine Glucose [...] IMPRESSION: No acute intracranial process. Electronically Signed: aJy Dowd MD at 21:34 EST Reading Location ID and State: [facility] / [place] Tel , Service support , Cervical Spine CT 02/13/23 20:46 IMPRESSION: 1. No evidence of acute cervical spinal fracture or spondylolisthesis. 2. Multilevel degenerative changes of the cervical spine. 3. Straightening of the cervical spine which could be due to muscle spasm.. Electronically Signed: Jay Dowd MD at 21:38 EST Reading Location ID and State: [facility] / [place] Tel , Service support , Chest X-Ray [...] 2 cap PO BID PreserVision AREDS 14,320-226-200 bnct-pa-rkla Capsule 1 cap PO BID lisinopril [Zestril] [...] your Primary Care Provider. Call [facility] ([phone]) or report to the closest Emergency Room. Call 911 if necessary. 02/13/232304 <Electronically signed by Jr Thomas DO> Cosigner Signature (if applicable): CC: Dr. Talya Nichols DO ~ Signed [facility] Work Phone: 1(224) 836-894509-19-2023 Note* Exam Date Time Procedure Performing Provider Status 11/28/22 10:16 AM Echocardiogram, Adult ([facility]OH) Auth (Verified) [facility] 09-09-2023 Discharge summary Author Erika Godwin [facility] November 18, 2022 12:45pm Note Date/Time November 18, 2022 12:44pm [facility] Medical Records Department [address] [place] [address] Discharge Summary 11/18/22 1234 MR#: [id number] Acct: [id number] Name: BEULAH BRIGHT Rep #:[id number] 2 : 1940 82 From: Erika Godwin MD PCP: Dr. Talya Nichols, Status:ADM [facility] Providers Date of Admission: 11/16/22 Date of Discharge: 11/18/22 Primary Care Physician: Dr. Talya Nichols, Consultations 11/17/22 02:11 Consult: Gastroenterology Routine Consulting Provider: [facility] Reason for Consult: GI bleed EMERGENT [...] (1,000 unit) capsule 25 mcg PO DAILY nuvavml29/21/22 ipratropium 0.5 mg-albuterol 3 mg (2.5 mg base)/3 mL nebulization soln 3 ml inhalation 4X/DAY PRN sob 05/02/21 liothyronine 25 mcg tablet 25 mcg PO DAILY THYROID 05/02/21 omega-3 fatty acids-vitamin E 1,000 mg capsule 2 cap PO BID SUPPLEMENT 05/02/21 tiotropium bromide 18 mcg capsule with inhalation device (Spiriva with HandiHaler) 18 mcg inhalation DAILY SOB 05/02/21 vitamins A,C,C-kpid-igjucl 4,296 mcg-226 mg-90 mg capsule (PreserVision AREDS) [...] 2 cap PO BID PreserVision AREDS 14,320-226-200 eekr-wp-oflt Capsule 1 cap PO BID lisinopril [Zestril] [...] Health Service Charges/Coding Visit Charges Inpatient E&M: 25902 Disch Hosp >30min 11/18/22 1245 <Electronically signed by Erika Godwin MD> Cosigner Signature (if applicable): CC: Dr. Erika Godwin MD; Dr. Talya Nichols DO~ Signed [facility] Work Phone: 1([phone]) 359-849709-08-2023 Consult note Author Fredy Friend [facility] November 17, 2022 6:08pm Note Date/Time November 17, 2022 6:05pm [facility] Medical Records Department [address] [place] [address] Consultation - GI 11/16/22 2300 MR#: [id number] Acct: [id number] Name: BEULAH BRIGHT Rep #:[id number] 9 : 1940 82 From: Fredy Friend DO PCP: Dr. Talya Nichols, DO Status:ADM IN Location: [place] [address] HPI Consult Data Date of Consult: 11/16/22 [...] in the ED were temp of 98.1F, MT of 99, BP of 132/64, RR of [...] anemia likely due to upper GI bleed. [facility] Medical History (Updated 11/16/22 @ 19:57 by Christine Richmond) Aortic valve stenosis, acquired Atherosclerotic heart disease of [place] coronary artery without angina pectoris CAD (coronary [...] (1,000 unit) capsule 25 mcg PO DAILY tezepfw67/21/22 [History Last Taken 05/24/22] ipratropium 0.5 mg-albuterol [...] SOB 05/02/21 [History Last Taken 05/24/22] vitamins A,C,B-gcqh-kgjbov 4,296 mcg-226 mg-90 mg capsule (PreserVision AREDS) [...] % (Auto) 58.6, Lymph % (Auto) 24.6, [place] % (Auto) 7.1, Eos % (Auto) 8.8 [...] CHF, CAD status post non-ST segment elevation IA on medical therapy, COPD on oxygen who [...] of 3 Charges/Coding Visit Charges Inpatient E&M: 51566 Init Hosp L3 11/17/22 180 <Electronically signed by Fredy Friend > Cosigner Signature (if applicable): CC: Dr. Talya Nichols DO; Dr. Sarai Alcantara MD~ Signed [facility] Work Phone: 1([phone]) 604-564009-08-2023 History and physical note Author [facility] November 17, 2022 4:58pm Note Date/Time November 16, 2022 6:58pm [facility] Medical Records Department [address] [place] [address] History & Physical Exam 11/16/22 1845 MR#: [id number] Acct: [id number] Name: BEULAH BRIGHT Rep #:[id number] 1 : 1940 82 From: Sarai Alcantara MD PCP: Dr. Talya Nichols DO Status:ADM IN Location: [place] [address] HPI - General General Date of Admission: [...] in the ED were temp of 98.1F, MT of 99, BP of 132/64, RR of [...] anemia likely due to upper GI bleed. [facility] Medical History Aortic valve stenosis, acquired Atherosclerotic heart disease of [place] coronary artery without angina pectoris CAD (coronary [...] SOB 05/02/21 [History Last Taken 05/24/22] vitamins A,C,H-koll-usdyaz 4,296 mcg-226 mg-90 mg capsule (PreserVision AREDS) [...] % (Auto) 67.7, Lymph % (Auto) 19.8, [place] % (Auto) 6.2, Eos % (Auto) 5.5 [...] either needs intubation or CPR * total qozs-eo-kudx time 18 minutes. Charges/Coding Visit Charges Inpatient E&M: 85761 Init Hosp L3 Procedures Hospitalists Procedures: 35740 Advncd Care Plan 30 Min 11/17/22 1658 <Electronically signed by Sarai Alcantara MD> Cosigner Signature (if applicable): CC: Dr. Talya Nichols DO; Dr. Sarai Alcantara MD~ Signed [facility] Work Phone: 1(833) 759-369609-08-2023 Progress note Author Sarai [facility] November 17, 2022 4:58pm Note Date/Time November 17, 2022 12:38pm [facility] Medical Records Department [facility] [place] [address] Progress Note 11/17/22 1212 MR#: [id number] Acct: [id number] Name: BEULAH BRIGHT Rep #:[id number] 8 : 1940 82 From: Sarai Alcantara MD PCP: Dr. Talya Nichols DO Status:ADM IN Location: [place] [id number]- 1 Subjective Subjective Patient seen and examined. [...] % (Auto) 67.7, Lymph % (Auto) 19.8, [place] % (Auto) 6.2, Eos % (Auto) 5.5 [...] % (Auto) 58.6, Lymph % (Auto) 24.6, [place] % (Auto) 7.1, Eos % (Auto) 8.8 [...] intubation * Charges/Coding Visit Charges Inpatient E&M: 34058 Subs Hosp L2 11/17/22 1658 <Electronically signed by Sarai Alcantara MD> Sarai Alcantara MD Cosigner Signature (if applicable): CC: ~ Signed [facility] Work Phone: 1(880) 239-596309-08-2023 Procedure [facility] 11-17-2022 Procedure [facility]09-07-2023 Discharge summary Author Lonnie Moreno [facility] November 16, 2022 6:57pm Note Date/Time November 16, 2022 4:47pm [facility] Medical Records Department [address] [place] [address] Emergency Department Summary 11/16/22 MR#: [id number] Acct: [id number] Name: BEULAH BRIGHT Rep #:[id number] 4 : 1940 82 From: Lonnie Moreno [...] earlier this year showed good ejection fraction. [facility] Medical History Aortic valve stenosis, acquired Atherosclerotic heart disease of [place] coronary artery without angina pectoris CAD (coronary [...] (1,000 unit) capsule 25 mcg PO DAILY jqhvzeg13/21/22 [History Last Taken 05/24/22] ipratropium 0.5 mg-albuterol [...] SOB 05/02/21 [History Last Taken 05/24/22] vitamins A,C,I-bosz-ylnpxq 4,296 mcg-226 mg-90 mg capsule (PreserVision AREDS) [...] % (Auto) 67.7 Lymph % (Auto) 19.8 [place] % (Auto) 6.2 Eos % (Auto) 5.5 [...] 17:47 EDT Reading Location ID and State: [facility] / [place] Tel , Service support , EKG Initial EKG: Comments: My independent interpretation of the patient's EKG shows sinus rhythm with first-degree AV block. Borderline tachycardia with overall rate of 97. There is some baseline variation and motion artifact but no ectopy. MT interval is long. QRS duration and QTc [...] 2 cap PO BID PreserVision AREDS 14,320-226-200 wmrk-cn-vqpl Capsule 1 cap PO BID lisinopril [Zestril] [...] Provider] - Disposition Disposition: [facility] Care [facility] What to do if you have Problems For any increased pain, shortness of breath, bleeding, nausea or vomiting, chestpain, or any unexpected problems, contact your Primary Care Provider. Call [facility] ([phone]) or report to the closest Emergency Room. Call 911 if necessary. 11/16/221856 <Electronically signed by Lonnie Moreno MD> Cosigner Signature (if applicable): CC: Dr. Talya Nichols DO ~ Signed [facility] Work Phone: 1([phone]) 417-790809-07-2023 Discharge summary Author Lonnie Moreno [facility] November 16, 2022 6:57pm Note Date/Time November 16, 2022 4:47pm [facility] Medical Records Department [address] [place] [address] Emergency Department Summary 11/16/22 MR#: [id number] Acct: [id number] Name: BEULAH BRIGHT Rep #:[id number] 4 : 1940 82 From: Lonnie Moreno [...] earlier this year showed good ejection fraction. [facility] Medical History Aortic valve stenosis, acquired Atherosclerotic heart disease of [place] coronary artery without angina pectoris CAD (coronary [...] (1,000 unit) capsule 25 mcg PO DAILY xphwauq35/21/22 [History Last Taken 05/24/22] ipratropium 0.5 mg-albuterol [...] SOB 05/02/21 [History Last Taken 05/24/22] vitamins A,C,U-rlro-xdygpw 4,296 mcg-226 mg-90 mg capsule (PreserVision AREDS) [...] % (Auto) 67.7 Lymph % (Auto) 19.8 [place] % (Auto) 6.2 Eos % (Auto) 5.5 [...] variation and motion artifact but no ectopy. MT interval is long. QRS duration and QTc [...] 2 cap PO BID PreserVision AREDS 14,320-226-200 sbyl-ft-qfqk Capsule 1 cap PO BID lisinopril [Zestril] [...] Provider] - Disposition Disposition: [facility] What to do if you have Problems For any increased pain, shortness of breath, bleeding, nausea or vomiting, chestpain, or any unexpected problems, contact your Primary Care Provider. Call [employer] [facility] ([phone]) or report to the closest Emergency Room. Call 911 if necessary. 11/16/22 1857 <Electronically signed by Lonnie Moreno MD> Cosigner Signature (if applicable): CC: Dr. Talya Nichols, DO ~ Signed [facility] Work Phone: 1(969) 891-353703-16-[address] Anders [facility] May 25, 2022 10:49am Note Date/Time May 25, 2022 10: 49am [facility] Medical Records Department [address] [place] [address] Progress Note - Hospitalist 05/25/22 1045 MR#: [id number] Acct: [id number] Name: BEULAH BRIGHT Rep #:[id number] 8 : 1940 81 From: John foster MD PCP: Dr. Talya Nichols, DO Status:ADM PAWEL Location: [place] [address] Subjective Subjective Doing well, says that he [...] 80.1 H, Lymph % (Auto) 10.9 L, [place] % (Auto) 5.4, Eos % (Auto) 2.9, [...] 78.7 H, Lymph % (Auto) 12.6 L, [place] % (Auto) 6.4, Eos % (Auto) 1.7, [...] DVT: Heparin Charges/Coding Visit Charges Inpatient E&M: 69179 Subs Hosp L2 05/25/22 1049 <Electronically signed by John Anders MD> Cosigner Signature (if applicable): CC: ~ Signed [facility] Work Phone: 1(437) 182-332403-15-2023 History and physical note Author Dr. Pardo [facility] May 24, 2022 4:24pm Note Date/Time May 24, 2022 4:1 5pm [facility] Medical Records Department [address] [place] [address] H&P Exam - Hospitalist 05/24/22 1559 MR#: [id number] Acct: [id number] Name: BEULAH BRIGHT Rep #:[id number] 7 : 1940 81 From: Jennifer Pardo MD PCP: Dr. Talya Nichols, DO Status:ADM PAWEL Location: [place] [address] HPI - General General Date of Admission: 05/24/22 Date of Service: 05/24/22 Chief Complaint: SOB HPI Narrative BEULAH BRIGHT, is a 81 M with a history of heart failure, COPD on 2 L home O2,coronary artery disease, and hypertension who presented to [facility] 05/24/2022 with shortness of breath for [...] significant complaints, denied swelling in his extremities. 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 Talya Nichols, DO; Dr. Jennifer Pardo MD~ Signed [facility] Work Phone: 1(949) 750-606503-15-[address] Edward [facility] May 24, 2022 3:51pm Note Date/Time May 24, 2022 11: 55am [facility] Medical Records Department [address] [place] [address] Emergency Department Summary 05/24/22 MR#: [id number] Acct: [id number] Name: BEULAH BRIGHT Rep #:[id number] : 1940 81 From: Yumiko Edward MD PCP: Dr. Talya Nichols, DO Status:ADM PAWEL Location: [place] [address] HPI History of Present Illness Chief Complaint: [...] to baseline. He denies any chest pain. 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 EKG obtained to evaluate for cardiac arrhythmia/ischemia. 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 His pick and shovel worker wantedhim on 40 mg daily, however his [...] 2 cap PO BID PreserVision AREDS 14,320-226-200 dfkr-hu-zsnz Capsule 1 cap PO BID lisinopril [Zestril] 20 mg tablet 20 mg PO DAILY Hold Instructions: Resume on 03/18/22. carvedilol 6.25 mg tablet 6.25 mg PO DAILY aspirin 81 mg tablet,chewable 81 mg PO DAILY@0800 furosemide [Lasix] 40 mg tablet 20 mg PO DAILY Primary Care Provider: Talya Nichols Referrals: Tlaya Nichols DO [Primary Care Provider] - Disposition Disposition: [facility] Care [facility] What to do if you have Problems For any increased pain, shortness of breath, bleeding, nausea or vomiting, chestpain, or any unexpected problems, contact your Primary Care Provider. Call [facility] ([phone]) or report to the closest Emergency Room. Call 911 if necessary. 05/24/22 2620 <Electronically signed by Yumiko Edward MD> Cosigner Signature (if applicable): CC: Dr. Talya Nichols DO ~ Signed [facility] Work Phone: 1(751) 129-686803-15-[address] Edward [facility] May 24, 2022 3:51pm Note Date/Time May 24, 2022 11: 55am [facility] Medical Records Department [address] [place] [address] Emergency Department Summary 05/24/22 MR#: [id number] Acct: [id number] Name: BEULAH BRIGHT Rep #:[id number] 6 : 1940 81 From: Yumiko Edward MD PCP: Dr. Talya Nichols, DO Status:ADM PAWEL Location: [place] [address] HPI History of Present Illness Chief Complaint: [...] to baseline. He denies any chest pain. 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 EKG obtained to evaluate for cardiac arrhythmia/ischemia. 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 His pick and shovel worker wantedhim on 40 mg daily, however his [...] 2 cap PO BID PreserVision AREDS 14,320-226-200 utfo-pz-qouz Capsule 1 cap PO BID lisinopril [Zestril] 20 mg tablet 20 mg PO DAILY Hold Instructions: Resume on 03/18/22. carvedilol 6.25 mg tablet 6.25 mg PO DAILY aspirin 81 mg tablet,chewable 81 mg PO DAILY@0800 furosemide [Lasix] 40 mg tablet 20 mg PO DAILY Primary Care Provider: Talya Nichols Referrals: Talya Nichols DO [Primary Care Provider] - Disposition Disposition: [facility] Care [facility] What to do if you have Problems For any increased pain, shortness of breath, bleeding, nausea or vomiting, chestpain, or any unexpected problems, contact your Primary Care Provider. Call [facility] ([phone]) or report to the closest Emergency Room. Call 911 if necessary. 05/24/22 4331 <Electronically signed by Yumiko Edward MD> Cosigner Signature (if applicable): CC: Dr. Talya Nichols, DO ~ Signed [facility] Work Phone: 1(477) 935-761202-02-[address] Anders [facility] April 13, 2022 10:37am Note Date/Time April 13, 2022 1 0:37am [facility] Medical Records Department [address] [place] [address] Discharge Summary 04/13/22 1033 MR#: [id number] Acct: [id number] Name: BEULAH BRIGHT Rep #:[id number] : 1940 81 From: John foster MD PCP: Dr. Talya Nichols DO Status:ADM IN Location: [place] [address] Providers Date of Admission: 04/11/22 Primary Care [...] (1,000 unit) capsule 25 mcg PO DAILY yhvgtvr52/21/22 glimepiride 4 mg tablet 4 mg PO [...] 18 mcg inhalation DAILY SOB 05/02/21 vitamins A,C,A-dmjy-jnhhpa 4,296 mcg-226 mg-90 mg capsule (PreserVision AREDS) [...] should call either his PCP or his pick and shovel worker about taking extra Lasix. We will do [...] % (Auto) Cancelled, Lymph % (Auto) Cancelled, [place] % (Auto) Cancelled, Eos % (Auto) Cancelled, [...] Tear DropCells Cancelled, Ovalocytes Cancelled, Stomatocytes Cancelled, [place] Bodies Cancelled, Glory Cells Cancelled, Bite Cells [...] % (Auto) 69.0, Lymph % (Auto) 20.3, [place] % (Auto) 6.4, Eos % (Auto) 3.9, [...] % (Auto) 56.0, Lymph % (Auto) 29.3, [place] % (Auto) 8.8, Eos % (Auto) 5.2 [...] to 5 days as well as your pick and shovel worker within a month. It is important that [...] Capsule 2 cap PO BID PreserVision AREDS 14,091-193-866 bvai-ea-rwse Capsule 1 cap PO BID lisinopril [Zestril] 20 mg tablet 20 mg PO DAILY Hold Instructions: Resume on 03/18/22. carvedilol 6.25 mg tablet 6.25 mg PO DAILY aspirin 81 mg tablet,chewable 81 mg PO DAILY@0800 Discontinued torsemide 10 mg tablet 2.5 mg PO DAILY Referrals / Follow Up: Talya Nichols DO [Primary Care Provider] - 04/19/22 1:30 pm Bart Galo NP, SCALE OPERATOR-C [Med Staff - Adv Practice Prof] - 05/02/22 10:00 am Disposition Disposition (needs filled in before D/C Order can be placed): Home, Self Care Charges/Coding Visit Charges Inpatient E&M: 58229 Disch Hosp >30min 04/13/22 1037 <Electronically signed by Jhon Anders MD> Cosigner Signature (if applicable): CC: Dr. Talya Nichols DO; Dr. John Anders MD~ Signed [facility] Work Phone: 1(591) 843-306402-02-[address] Anders [facility] April 13, 2022 9:58am Note Date/Time April 13, 2022 9 :55am [facility] Medical Records Department [address] [place] [address] Instructions for Home/Discharge Instructions 04/13/22 0954 MR#: [id number] Acct: [id number] Name: BEULAH BRIGHT Rep #:[id number] : 1940 81 From: John foster [...] to 5 days as well as your pick and shovel worker within a month. It is important that [...] 2 cap PO BID PreserVision AREDS 14,320-226-200 ryba-zq-ldal Capsule 1 cap PO BID lisinopril [Zestril] [...] MD; Dr. Talya Nichols, DO ~ Signed [facility] Work Phone: 1(931) 192-823002-01-[address] Anders [facility] April 12, 2022 12:25pm Note Date/Time April 12, 2022 1 2:21pm [facility] Medical Records Department [address] [place] [address] Progress Note - Hospitalist 04/12/22 1210 MR#: [id number] Acct: [id number] Name: BEULAH BRIGHT Rep #:[id number] : 1940 81 From: John foster MD PCP: Dr. Talya Nichols, DO Status:ADM IN Location: [place] [address] Subjective Subjective Doing well, no issues overnight. [...] % (Auto) 66.7, Lymph % (Auto) 22.4, [place] % (Auto) 6.0, Eos % (Auto) 4.3, [...] % (Auto) Cancelled, Lymph % (Auto) Cancelled, [place] % (Auto) Cancelled, Eos % (Auto) Cancelled, [...] Tear DropCells Cancelled, Ovalocytes Cancelled, Stomatocytes Cancelled, [place] Bodies Cancelled, Page Cells Cancelled, Bite Cells Cancelled, Crenated Cell [...] DVT: Heparin Charges/Coding Visit Charges Inpatient E&M: 77057 Subs Hosp L2 04/12/22 1225 <Electronically signed by John Anders MD> Cosigner Signature (if applicable): CC: ~ Signed [facility] Work Phone: 1(583) 951-203802-01-2023 History and physical note Author Dr. Sainz [facility] April 11, 2022 11:39pm Note Date/Time April 11, 2022 9 :13pm [facility] Medical Records Department [address] [facility] [place] [address] H&P Exam - Hospitalist 04/11/222112 MR#: [id number] Acct: [id number] Name: BEULAH BRIGHT Rep #:[id number] : 1940 81 From: Ayesha Sainz MD PCP: Dr. Talya Nichols, DO Status:ADM IN Location: [facility] [id number] HPI - General General Date of [...] x-ray showed bilateral effusions and bibasilar opacities/atelectasis. [facility] Medical History Aortic valve stenosis, acquired Atherosclerotic heart disease of [place] coronary artery without angina pectoris CAD (coronary [...] (1,000 unit) capsule 25 mcg PO DAILY ysjxscb94/21/22 [History Last Taken 03/11/22] glimepiride 4 mg [...] SOB 05/02/21 [History Last Taken 03/11/22] vitamins A,C,G-tbmd-phidcm 4,296 mcg-226 mg-90 mg capsule (PreserVision AREDS) [...] % (Auto) 66.7, Lymph % (Auto) 22.4, [place] % (Auto) 6.0, Eos % (Auto) 4.3, [...] nursing staff. Charges/Coding Visit Charges Inpatient E&M: 88540 Init Hosp L3 04/11/22 2339 <Electronically signed by Ayesha Sainz MD> Cosigner Signature (if applicable): CC: Dr. Ayesha Sainz MD; Dr. Talya Nichols DO~ Signed [facility] Work Phone: 1(878) 953-729601-31-[address] Yan [facility] April 11, 2022 8:43pm Note Date/Time April 11, 2022 7 :03pm [facility] Medical Records Department [address] [place] [address] Emergency Department Summary 04/11/22 MR#: [id number] Acct: [id number] Name: BEULAH BRIGHT Rep #:[id number] : 1940 81 From: Dusty Yan [...] 1: Proximal - Moderate calcification, Proximal - [place] with 50 % Stenosis CIRCUMFLEX ARTERY: [...] Prior similar symptoms: Yes Recent Illness/Hospitalization: Yes [facility] Medical History Aortic valve stenosis, acquired Atherosclerotic heart disease of [place] coronary artery without angina pectoris CAD (coronary [...] (1,000 unit) capsule 25 mcg PO DAILY bzcogoo90/21/22 [History Last Taken 03/11/22] glimepiride 4 mg [...] SOB 05/02/21 [History Last Taken 03/11/22] vitamins A,C,R-ymjf-rgvlnn 4,296 mcg-226 mg-90 mg capsule (PreserVision AREDS) [...] % (Auto) 66.7 Lymph % (Auto) 22.4 [place] % (Auto) 6.0 Eos % (Auto) 4.3 [...] rate of 83 and first-degree AV block. MT interval 218 ms. QRS duration 80 ms. QT duration 256 ms. [place] is normal. There is no acute ischemic [...] 2 cap PO BID PreserVision AREDS 14,320-226-200 kvxb-rl-pbls Capsule 1 cap PO BID lisinopril [Zestril] [...] Provider] - Disposition Disposition: Acute Care [facility] What to do if you have Problems For any increased pain, shortness of breath, bleeding, nausea or vomiting, chestpain, or any unexpected problems, contact your Primary Care Provider. Call [facility] ([phone]) or report to the closest Emergency Room. Call 911 if necessary. 04/11/222042 <Electronically signed by Dusty Yan MD> Cosigner Signature (if applicable): CC: Dr. Talya Nichols, DO ~ Signed [facility] Work Phone: 1(191) 222-532602-12-2022 Hospital Discharge instructions Patient Education 04/23/2021 16:15:50 [...] Cough with dark-colored or bloody sputum (mucus) 2287-3400 [employer]. [address] [place] [address]. All rights reserved. This information is not intended as a substitute for professional medical care. Always follow yourhealthcare professional's instructions. Follow Up Care 04/23/2021 13:41:51 With:TALYA NICHOLS DO Address: [id number] When:2-4 days [facility] Discharge summary Author Dr. Anders [facility] May 26, 2022 10:19am Note Date/Time May 26, 2022 10: 16am [facility] Medical Records Department [address] [place] [address] Instructions for Home/Discharge Instructions 05/26/22 1014 MR#: [id number] Acct: [id number] Name: BEULAH BRIGHT Rep #:[id number] : 1940 81 From: John foster [...] 2 cap PO BID PreserVision AREDS 14,320-226-200 opwe-kf-kfzc Capsule 1 cap PO BID lisinopril [Zestril] [...] DO; Dr. Jennifer Pardo MD ~ Signed [facility] Work Phone: Discharge summary Author John Anders [facility] April 26, 2023 3:53pm Note Date/Time April 26, 2023 3:30pm [facility] Medical Records Department [address] [place] [address] Instructions for Home/Discharge Instructions 04/26/23 1529 MR#: [id number] Acct: [id number] Name: BEULAH BRIGHT Rep #:[id number] : 1940 82 From: John foster [...] 2 cap PO BID PreserVision AREDS 14,320-226-200 lcxm-gg-lihx Capsule 1 cap PO BID lisinopril [Zestril] [...] have lab orders waiting for you at [facility] to be done on sunday or Sunday) Disposition Disposition (needs filled in before D/C Order can be placed): Home, Self Care 04/26/23 1553<Electronically signed by John Anders MD>John Anders MD CC: Dr. Michelle Washburn DO; Dr. Talya Nichols DO; Dr. Trell Kendrick MD ~ Signed [facility] Work Phone: Discharge summary Author John Anders [facility] April 26, 2023 4:09pm Note Date/Time April 26, 2023 4:09pm [facility] Medical Records Department [address] [place] [address] Discharge Summary 04/26/23 1603 MR#: [id number] Acct: [id number] Name: BEULAH BRIGHT Rep #:[id number] : 1940 82 From: John foster MD PCP: Dr. Talya Nichols DO Status:ADM IN Location: [place] [address] Providers Date of Admission: 04/24/23 Primary Care [...] (1,000 unit) capsule 25 mcg PO DAILY nuufaps68/21/22 ipratropium 0.5 mg-albuterol 3 mg (2.5 mg base)/3 mL nebulization soln 3 ml inhalation 4X/DAY PRN sob 05/02/21 liothyronine 25 mcg tablet 25 mcg PO DAILY THYROID 05/02/21 omega-3 fatty acids-vitamin E 1,000 mg capsule 2 cap PO BID SUPPLEMENT 05/02/21 tiotropium bromide 18 mcg capsule with inhalation device (Spiriva with HandiHaler) 18 mcg inhalation DAILY SOB 05/02/21 vitamins A,C,O-ymzc-zapels 4,296 mcg-226 mg-90 mg capsule (PreserVision AREDS) [...] [facility] complaining of shortness of [...] shows first-degree heart block with a prolonged MT interval, normal QT interval with mild tachycardia [...] Neut % (Auto) 59.6, Lymph % (Auto) 24.7,[place] % (Auto) 8.8, Eos % (Auto) 6.0 [...] 2 cap PO BID PreserVision AREDS 14,320-226-200 dclp-cs-riuc Capsule 1 cap PO BID lisinopril [Zestril] [...] have lab orders waiting for you at [facility] to be done on sunday or Sunday) Disposition Disposition (needs filled in before D/C Order can be placed): Home, Self Care Charges/Coding Visit Charges Inpatient E&M: 24651 Disch Hosp >30min 04/26/23 1609 <Electronically signed by John Anders MD> Cosigner Signature (if applicable): CC: Dr. Talya Nichols DO; Dr. John Anders MD~ Signed [facility] Work Phone: Evaluation + Plan note Future Appointments Appointment Date:07/06/2021 02:00:00 PM Scheduled Provider:TALYA NICHOLS DO Location:[facility] Appointment Type:PC OV Follow Up Future Scheduled Tests Laboratory* Thyroid Stimulating Hormone 06/28/21 * A1C Hemoglobin 06/28/21 * Lipid Profile 06/28/21 * Vitamin D Level 06/28/21 * Complete Metabolic Panel 06/28/21 [facility] Evaluation + Plan note Future Appointments Appointment Date:01/12/2022 11:30:00 AM Scheduled Provider:TALYA NICHOLS DO Location:[facility] Appointment Type:PC OV [facility] Evaluation + Plan note Future Appointments Appointment Date:01/17/2022 01:30:00 PM Scheduled Provider:TALYA NICHOLS DO Location:[facility] Appointment Type: OV [facility] Evaluation + Plan note Future Appointments Appointment Date:04/25/2022 02:00:00 PM Scheduled Provider:TALYA NICHOLS DO Location:[facility] Appointment Type: OV [facility] Evaluation + Plan note Future Appointments Appointment Date:07/25/2022 02:00:00 PM Scheduled Provider:TALYA NICHOLS DO Location:[facility] Appointment Type: OV Future Scheduled Tests Laboratory* Complete Blood Count 06/09/22 * Microalbumin Level Urine 04/25/22 * Complete Metabolic Panel 05/12/22 * Complete Metabolic Panel 06/09/22 * N-Terminal proBNP 05/12/22 * N-Terminal proBNP 06/09/22 [facility] Evaluation + Plan note Future Appointments Appointment Date:07/25/2022 02:00:00 PM Scheduled Provider:TALYA NICHOLS DO Location:[facility] Appointment Type: OV Future Scheduled Tests Laboratory* Complete Blood Count 06/16/22 * Microalbumin Level Urine 04/25/22 * Complete Metabolic Panel 05/12/22 * Complete Metabolic Panel 06/16/22 * N-Terminal proBNP 05/12/22 * N-Terminal proBNP 06/16/22 [facility] Evaluation + Plan note Future Appointments Appointment Date:07/25/2022 02:00:00 PM Scheduled Provider:TALYA NICHOLS DO Location:[facility] Appointment Type:PC OV Future Scheduled Tests Laboratory* Microalbumin Level Urine 04/25/22 * Complete Metabolic Panel 05/12/22 * N-Terminal proBNP 05/12/22 [facility] Evaluation + Plan note Future Appointments Appointment Date:10/25/2022 04:30:00 PM Scheduled Provider:TALYA NICHOLS DO Location:[facility] Appointment Type:PC OV ED Follow Up Appointment Date:11/10/2022 11:30:00 AM Scheduled Provider:TALYA NICHOLS DO Location:[facility] Appointment Type:PC OV Appointment Date:11/16/2022 10:30:00 AM Scheduled Provider:TALYA NICHOLS DO Location:[facility] Appointment Type:PC OV Future Scheduled Tests Laboratory* Microalbumin Level Urine 04/25/22 * Complete Metabolic Panel 05/12/22 * N-Terminal proBNP 05/12/22 [facility] Evaluation + Plan note Future Appointments Appointment Date:11/10/2022 11:30:00 AM Scheduled Provider:TALYA NICHOLS DO Location:[facility] Appointment Type:PC OV Appointment Date:11/15/2022 09:30:00 AM Scheduled Provider: Location:[facility] Appointment Type:CV OV Future Scheduled Tests Laboratory* Microalbumin Level Urine 04/25/22 * Complete Metabolic Panel 05/12/22 * N-Terminal proBNP 05/12/22 [facility] Evaluation + Plan note Future Appointments Appointment Date:11/28/2022 10:00:00 AM Scheduled Provider: Location:[facility] Appointment Type:CV Procedure - AOH Echo Appointment Date:01/19/2023 11:30:00 AM Scheduled Provider:TALYA NICHOLS DO Location:[facility] Appointment Type:PC OV Diagnostic Tests Pending * Renin, Plasma 11/24/22 Future Scheduled Tests Laboratory* Microalbumin Level Urine 04/25/22 * Complete Metabolic Panel 05/12/22 [facility] Evaluation + Plan note Future Appointments Appointment Date:11/30/2022 09:20:00 AM Scheduled Provider:MELONIE BULLARD APRN, CNP Location:[facility] Appointment Type:PC OV Appointment Date:01/19/2023 11:30:00 AM Scheduled Provider:TALYA NICHOLS DO Location:[facility] Appointment Type:PC OV Future Scheduled Tests Laboratory* Microalbumin Level Urine 04/25/22 * Complete Metabolic Panel 05/12/22 [facility] Evaluation + Plan note Future Appointments Appointment Date:02/09/2023 02:45:00 PM Scheduled Provider: Location:[facility] Appointment Type:CV OV Appointment Date:03/02/2023 08:30:00 AM Scheduled Provider:TALYA NICHOLS DO Location:[facility] Appointment Type:PC OV Future Scheduled Tests Laboratory* Complete Blood Count 01/19/23 * Microalbumin Level Urine 04/25/22 * Complete Metabolic Panel 01/19/23 * Complete Metabolic Panel 05/12/22 [facility] Evaluation + Plan note Future Appointments Appointment Date:02/09/2023 02:45:00 PM Scheduled Provider: Location:[facility] Appointment Type:CV OV Appointment Date:03/02/2023 08:30:00 AM Scheduled Provider:TALYA NICHOLS DO Location:[facility] Appointment Type:PC OV Future Scheduled Tests Laboratory* Basic Metabolic Panel 02/02/23 * Complete Blood Count 02/02/23 [facility] Evaluation + Plan note Future Appointments Appointment Date:02/09/2023 02:45:00 PM Scheduled Provider: Location:[facility] Appointment Type:CV OV Appointment Date:03/02/2023 08:30:00 AM Scheduled Provider:TALYA NICHOLS DO Location:[facility] Appointment Type:PC OV [facility] Evaluation + Plan note Future Appointments Appointment Date:02/23/2023 11:00:00 AM Scheduled Provider:TALYA NICHOLS DO Location:[facility] Appointment Type:PC OV TCM 30 Appointment Date:03/02/2023 08:30:00 AM Scheduled Provider:TALYA NICHOLS DO Location:[facility] Appointment Type:PC OV Future Scheduled Tests Laboratory* Basic Metabolic Panel 02/08/23 * Complete Blood Count 02/08/23 [facility] Evaluation + Plan note Future Appointments Appointment Date:03/02/2023 08:30:00 AM Scheduled Provider:TALYA NICHOLS DO Location:[facility] Appointment Type:PC OV Future Scheduled Tests Laboratory* Basic Metabolic Panel 02/08/23 * Complete Blood Count 02/08/23 [facility] Evaluation + Plan note Future Appointments Appointment Date:04/13/2023 01:30:00 PM Scheduled Provider:TALYA NICHOLS DO Location:[facility] Appointment Type:PC OV Future Scheduled [...] Count 02/08/23 * Complete Metabolic Panel 04/11/23 [facility] evaluation + Plan note Future Appointments Appointment Date:05/11/2023 12:30:00 PM Scheduled Provider:TALYA NICHOLS DO Location:[facility] Appointment Type:PC OV Future Scheduled [...] Metabolic Panel 04/13/23 * N-Terminal proBNP 04/13/23 [facility] Evaluation + Plan note Future Appointments Appointment Date:06/19/2023 11:00:00 AM Scheduled Provider:TALYA NICHOLS DO Location:[facility] Appointment Type:PC OV Future Scheduled [...] N-Terminal proBNP 05/17/23 * N-Terminal proBNP 04/13/23 [facility] Evaluation + Plan note Future Appointments [...] Metabolic Panel 04/13/23 * N-Terminal proBNP 04/13/23 [facility] Evaluation + Plan note Future Appointments Appointment Date:06/19/2023 11:00:00 AM Scheduled Provider:TALYA NICHOLS DO Location:[facility] Appointment Type:PC OV Future Scheduled [...] Metabolic Panel 04/13/23 * N-Terminal proBNP 04/13/23 [facility] Evaluation + Plan note Future Appointments Appointment Date:06/11/2023 11:00:00 AM Scheduled Provider:TALYA NICHOLS DO Location:[facility] Appointment Type:PC OV Future Scheduled [...] Metabolic Panel 04/13/23 * N-Terminal proBNP 04/13/23 [facility] Evaluation + Plan note Future Appointments Appointment Date:08/28/2023 02:00:00 PM Scheduled Provider:TALYA NICHOLS DO Location:[facility] Appointment Type:PC OV Future Scheduled [...] Panel 04/11/23 * Complete Metabolic Panel 04/13/23 [facility] evaluation noteNo assessment information available [facility] Work Phone: evaluation note* Diagnosis Onset Date Resolution Status Debility acute Dehydration acute Polyarthralgia acute Acute on chronic renal insufficiency chronic COPD (chronic obstructive pulmonary disease) [facility] Work Phone: evaluation note* Diagnosis Onset [...] (chronic obstructive pulmonary disease) chronic HTN (hypertension) [facility] Work Phone: Evaluation note* Diagnosis Onset [...] exacerbation of CHF (congestive heart failure) chronic [facility] Work Phone: evaluation note* Diagnosis Onset [...] exacerbation of CHF (congestive heart failure) chronic [facility] Work Phone: Evaluation note* Diagnosis Onset [...] insufficiency chronic Atherosclerotic heart diseas e of [place] coronary artery without angina pectoris acute Diastolic CHF acute Essential hypertension chron ic HLD (hyperlipidemia) chronic Nonrheumatic aortic (valve) stenosis chronic Renal insufficiency chronic CHF (congestive heart failure) acute History of CAD (coronary artery disease) acute [facility] Work Phone: Evaluation note* Diagnosis Onset Date Resolution Status Atherosclerotic heart diseas e of [place] coronary artery without angina pectoris acute Diastolic CHF acute Essential hypertension chron ic HLD (hyperlipidemia) chronic Nonrheumatic aortic (valve) stenosis chronic Renal insufficiency chronic [facility] Work Phone: Evaluation note* Diagnosis Onset Date Resolution Status Anemia acute GI bleed acute [facility] Work Phone: Evaluation note* Diagnosis Onset Date Resolution Status Anemia resolved GI bleed resolved [facility] Work Phone: Evaluation note* Diagnosis Onset Date Resolution Status Anemia resolved GI bleed resolved Acute bronchospasm acute Acute exacerbation of chroni c obstructive pulmonary disease (COPD) [facility] Work Phone: Evaluation note* Diagnosis Onset Date Resolution Status Anemia resolved GI bleed resolved Acute bronchospasm acute Near syncope acute Acute exacerbation of chroni c obstructive pulmonary disease (COPD) [facility] Work Phone: Evaluation note* Diagnosis Onset Date Resolution Status Anemia chronic GI bleed resolved Near syncope resolved Anemia chronic Acute upper gastrointestinal bleeding acute Symptomatic anemia acute Acute on chronic blood loss anemia chronic COPD (chronic obstructive pulmonary disease) chronic [facility] Work Phone: Evaluation note* Diagnosis Onset Date Resolution Status Anemia chronic GI bleed resolved Near syncope resolved Anemia chronic Acute upper gastrointestinal bleeding acute Symptomatic anemia acute Acute on chronic blood loss anemia chronic Anemia chronic COPD (chronic obstructive pulmonary disease) chronic GI bleed resolved [facility] Work Phone: Evaluation note* Diagnosis Onset Date Resolution Status Near syncope resolved Anemia chronic Acute upper gastrointestinal bleeding acute Anemia chronic COPD (chronic obstructive pulmonary disease) chronic Acute on chronic blood loss anemia resolved GI bleed resolved Acute upper gastrointestinal bleeding acute [facility] Work Phone: Evaluation note* Diagnosis Onset Date Resolution Status Near syncope resolved Anemia chronic Acute upper gastrointestinal bleeding acute Anemia chronic COPD (chronic obstructive pulmonary disease) chronic Acute on chronic blood loss anemia resolved GI bleed resolved Acute upper gastrointestinal bleeding acute Anemia chronic [facility] Work Phone: Evaluation note* Diagnosis Onset [...] (HFpEF) acute Atherosclerotic heart diseas e of [place] coronary artery without angina pectoris acute Carotid artery stenosis acut e Elevated brain natriuretic peptide (BNP) level acute Elevated troponin acute Hypoxia acute Anemia chronic Essential hypertension chron ic HLD (hyperlipidemia) chronic Nonrheumatic aortic (valve) stenosis chronic Renal insufficiency chronic [facility] Work Phone: Evaluation note* Diagnosis Onset Date Resolution Status Near syncope resolved Anemia chronic Acute upper gastrointestinal bleeding acute Anemia chronic COPD (chronic obstructive pulmonary disease) chronic Acute on chronic blood loss anemia resolved GI bleed resolved Acute upper gastrointestinal bleeding acute Anemia chronic Acute dyspnea acute Atherosclerotic heart diseas e of [place] coronary artery without angina pectoris acute Carotid artery stenosis acut e Elevated brain natriuretic peptide (BNP) level acute Elevated troponin acute Hypoxia acute Anemia chronic Essential hypertension chron ic HLD (hyperlipidemia) chronic Nonrheumatic aortic (valve) stenosis chronic Renal insufficiency chronic Acute on chronic heart failu re with preserved ejection fraction (HFpEF) resolved [facility] Work Phone: Evaluation note* Diagnosis Onset Date Resolution Status Acute upper gastrointestinal bleeding acute Anemia chronic COPD (chronic obstructive pulmonary disease) chronic Acute on chronic blood loss anemia resolved GI bleed resolved Acute upper gastrointestinal bleeding acute Anemia chronic Acute dyspnea acute Atherosclerotic heart diseas e of [place] coronary artery without angina pectoris acute Carotid artery stenosis acut e Elevated brain natriuretic peptide (BNP) level acute Elevated troponin acute Hypoxia acute Anemia chronic Essential hypertension chron ic HLD (hyperlipidemia) chronic Nonrheumatic aortic (valve) stenosis chronic Renal insufficiency chronic Acute on chronic heart failu re with preserved ejection fraction (HFpEF) resolved [facility] Work Phone: History and physical note Author Dr. Pardo [facility] May 24, 2022 4:24pm Note Date/Time May 24, 2022 4:1 5pm [facility] Medical Records Department [address] [place] [address] H&P Exam - Hospitalist 05/24/22 1559 MR#: [id number] Acct: [id number] Name: BEULAH BRIGHT Rep #:[id number] : 1940 81 From: Jennifer Pardo MD PCP: Dr. Talya Nichols, DO Status:ADM PAWEL Location: [place] [address] HPI - General General Date of Admission: 05/24/22 Date of Service: 05/24/22 Chief Complaint: SOB HPI Narrative BEULAH BRIGHT, is a 81 M with a history of heart failure, COPD on 2 L home O2,coronary artery disease, and hypertension who presented to [facility] 05/24/2022 with shortness of breath for [...] significant complaints, denied swelling in his extremities. [facility] Medical History Acute exacerbation of CHF (congestive heart failure) Aortic valve stenosis, acquired Atherosclerotic heart disease of [place] coronary artery without angina pectoris CAD (coronary [...] (1,000 unit) capsule 25 mcg PO DAILY oudhhnc86/21/22 [History Last Taken 05/24/22] ipratropium 0.5 mg-albuterol [...] SOB 05/02/21 [History Last Taken 05/24/22] vitamins A,C,K-lobi-yshnls 4,296 mcg-226 mg-90 mg capsule (PreserVision AREDS) [...] 80.1 H, Lymph % (Auto) 10.9 L, [place] % (Auto) 5.4, Eos % (Auto) 2.9, [...] 12:39 EDT Reading Location ID and State: [address] [place] [address] Tel , Service support , Assessment & [...] documentation, 60minutes Charges/Coding Visit Charges Inpatient E&M: 62740 Init Hosp L2 05/24/22 1624 <Electronically signed by Jennifer Pardo MD> Cosigner Signature (if applicable): CC: Dr. Talya iNchols DO; Dr. Jennifer Pardo MD~ Signed [facility] Work Phone: History and physical note Author Fredy Joy [facility] April 02, 2023 10:43am Note Date/Time April 02, 2023 9 :51am [facility] Medical Records Department [address] [place] [address] History & Physical Exam 04/02/23 0951 MR#: [id number] Acct: [id number] Name: BEULAH BRIGHT Rep #:[id number] : 1940 82 From: Fredy Joy DO PCP: Dr. Talya Nichols DO Status:[facility] Location: [place] [address] History and Physical Date of Admission: 04/02/23 [...] in the ED were temp of 98.1F, MT of 99, BP of 132/64, RR of [...] in the stomach that were endoscopically treated. [facility] Medical History Acute and chronic respiratory failure with hypoxia Aortic valve stenosis, acquired Atherosclerotic heart disease of [place] coronary artery without angina pectoris CAD (coronary [...] SOB 05/02/21 [History Last Taken 02/15/23] vitamins A,C,U-tkxq-dquexu 4,296 mcg-226 mg-90 mg capsule (PreserVision AREDS) [...] % (Auto) 63.7, Lymph % (Auto) 25.2, [place] % (Auto) 8.2, Eos % (Auto) 2.5, [...] bleeding: PLAN: 82-year-old male who presented to [facility] ED on 03/07/2023 with worsening shortness [...] no clinicalchanges since date of exam. 04/02/23 3725 <Electronically signed by Fredy Joy DO> Cosigner [...] Nichols DO; Fredy Joy DO ~* Signed [facility] Work Phone: History and physical note Author Tracy Angel [facility] Note Date/Time June 23, 2024 5:5 4pm [facility] Medical Records Department [address] [place] [address] H&P Exam - Hospitalist 06/23/24 1734 MR#: [id number] Acct: [id number] Name: BEULAH BRIGHT Rep #:[id number] : 1940 84 From: Tracy Angel MD PCP: Dr. Yuridia Hernandez MD Status:ADM I N Location: [place] [address] HPI - General General Date of Admission: [...] Disease, Nonobstructive CAD who presents to the [facility] ED with history of worsening shortness [...] catheterization (LHC) (~03/15/22) Atherosclerotic heart disease of [place] coronary artery without angina pectoris Aortic valve [...] with inhalation device (Spiriva with HandiHaler) vitamins A,C,T-njbe-ktjzur 4,296 1 cap PO BID vitamin 12/13/21 [...] 71.4 H, Lymph % (Auto) 17.7 L, [place] % (Auto) 6.6, Eos % (Auto) 3.5, [...] No acute abnormality is seen. 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 Charges/Coding Visit Charges Inpatient E&M: 11593 Init Hosp L3 Procedures Hospitalists Procedures: 49043 Advncd Care Plan 30 Min 06/23/24 6781 <Electronically signed by Tracy Angel MD> Cosigner Signature (if applicable): CC: Dr. Tracy Angel MD; Dr. Yuridia Hernandez MD~ Signed [facility] Work Phone: Hospital course Narrative No data available for this section [facility] Hospital Discharge instructions No data available for this section [facility] Hospital Discharge instructions Additional Instructions Follow-up with your primary care physician. Your EKG and labs today were consistent with your normal baseline. No specific new or concerning changes. Return if you are feeling worse. Use your inhalers as needed.[facility] Work Phone: Hospital Discharge instructions Additional Instructions Your workup today shows that everything is stable compared to your previous admission. Continue all of your medications as directed by your doctor. Continue to wear your oxygen between 2 and 4 L as needed for shortness of breath sensation and return to the ER should you have any [facility] Work Phone: Progress note No data available for this section [facility] Prowsgam note Author Fredy Joy [facility] March 09, 2023 4:23pm Note Date/Time March 09, 2023 4:23pm [facility] Medical Records Department [address] [place] [id number] Progress Note - GI 03/09/23 1621 MR#: [id number] Acct: [id number] Name: BEULAH BRIGHT Rep #:[id number] : 1940 82 From: Fredy Joy DO PCP: Dr. Talya Nichols, DO Status:ADM IN Location: [place] [address] Subjective Subjective Patient is doing well. He [...] % (Auto) 57.7, Lymph % (Auto) 25.7, [place] % (Auto) 9.8, Eos % (Auto) 5.8 [...] is an 82-year-old male who presented to [facility] ED on03/07/2023 with worsening shortness of [...] 5 days. Charges/Coding Visit Charges Inpatient E&M: 32038 Subs Hosp L3 03/09/23 8798 <Electronically signed by Fredy Friend DO> Cosigner Signature (if applicable): CC: ~ Signed [facility] Work Phone: Reason for referral (narrative)No reason for referral information availableWFairfield Medical Center Work Phone: Summary Purpose Family History No [...] Yes December 08, 2021 8:41am Power of Cable Respooler Yes November 8:41am Name of Medical Power of Cable Respooler ana m yadav December 08, 2021 8:41am Advance Directive Response Recorded Date/ Time Name of Medical Power of Cable Respooler ana m yadav December 08, 2021 8:41am Name of Medical Power of Cable Respooler Ana M carey r December 13, 2021 2:20pm Living Will Yes December 13 2:20pm Power of Cable Respooler Yes December 13, 2 022 2:20pm Advance Directive Response Recorded Date/ Time Name of Medical Power of Cable Respooler ana m yadav December 08, 2021 7:41am Name of Medical Power of Cable Respooler Ana M carey r December 13, 2021 1:20pm Living Will No March 12 3:45am Power of Cable Respooler No March 12, 023 3:45am Advance Directive Response Recorded Date/ Time Name of Medical Power of Cable Respooler Ana M carey r December 13, 2021 1:20pm Name of Medical Power of Cable Respooler ANA MJigarDAEVAE R April 11, 2022 6:15pm Living Will Yes April 11 6:15pm Power of Cable Respooler Yes April 11, 2022 6:15pm Advance Directive Response Recorded Date/ Time Name of Medical Power of Cable Respooler ANA M-DAEVAE R April 11, 2022 6:15pm Living Will Yes April 11 11:35pm Power of Cable Respooler No April 11, 2022 11:35pm Advance Directive Response Recorded Date/ Time Name of Medical Power of Cable Respooler ADE R April 11, 2022 7:15pm Living Will Yes May 24, 2022 11:15am Power of Cable Respooler No May 24 11:15am Advance Directive Response Recorded Date/ Time Name of Medical Power of Cable Respooler ADE R April 11, 2022 7:15pm Living Will Yes May 24, 2022 5:48pm Power of Cable Respooler No May 24 5:48pm Advance Directive Response Recorded Date/ Time Name of Medical Power of Cable Respooler daughter October 22, 2022 8:23pm Living Will Yes October 22 8:23pm Power of Cable Respooler Yes October 22, 023 8:23pm Advance Directive Response Recorded Date/ Time Name of Medical Power of Cable Respooler daughter October 22, 2022 8:23pm Name of Medical Power of Cable Respooler recalled November 16, 2022 4:31pm Living Will Yes November 16, 023 4:31pm Power of Cable Respooler Yes November 16, 2022 4:31pm Advance Directive Response Recorded Date/ Time Name of Medical Power of Cable Respooler daughter October 22, 2022 8:23pm Name of Medical Power of Cable Respooler recalled November 16, 2022 7:49pm Living Will Yes November 16, 7:49pm Power of Cable Respooler Yes November 16, 2022 7:49pm Advance Directive Response Recorded Date/ Time Name of Medical Power of Cable Respooler daughter October 22, 2022 7:23pm Name of Medical Power of Cable Respooler recalled November 16, 2022 6:49pm Name of Medical Power of Cable Respooler nikunj Wilson er February 08, 2023 5:53pm Name of Medical Power of Cable Respooler UNSURE February 13, 2023 8:14pm Living Will Yes February 13 8:14pm Power of Cable Respooler Yes February 13, 2023 8:14pm Advance Directive Response Recorded Date/ Time Name of Medical Power of Cable Respooler daughter October 22, 2022 7:23pm Name of Medical Power of Cable Respooler recalled November 16, 2022 6:49pm Name of Medical Power of Cable Respooler niknuj Wilson er February 08, 2023 5:53pm Name of Medical Power of Cable Respooler UNSURE February 13, 2023 8:14pm Living Will Yes February 13 11:53pm Power of Cable Respooler No February 13, 2023 11:53pm Advance Directive Response Recorded Date/ Time Name of Medical Power of Cable Respooler recalled November 16, 2022 6:49pm Name of Medical Power of Cable Respooler Ana M daught er February 08, 2023 5:53pm Name of Medical Power of Cable Respooler UNSURE February 13, 2023 8:14pm Living Will No March 07, 2 023 6:30pm Power of Cable Respooler No March 07, 2023 6:30pm Advance Directive Response Recorded Date/ Time Name of Medical Power of Cable Respooler recalled November 16, 2022 6:49pm Name of Medical Power of Cable Respooler Ana M daught er February 08, 2023 5:53pm Name of Medical Power of Cable Respooler UNSURE February 13, 2023 8:14pm Name of Medical Power of Cable Respooler Ana M Singletary March 07, 2023 10:14pm Living Will Yes March 07, 023 10:14pm Power of Cable Respooler Yes March 07, 2023 10:14pm Advance Directive Response Recorded Date/ Time Name of Medical Power of Cable Respooler ON FILE March 28, 2023 11:29am Living Will Yes March 28 11:29am Power of Cable Respooler Yes March 28, 2023 11:29am Name of Medical Power of Cable Respooler Ana M daught er February 08, 2023 5:53pm Name of Medical Power of Cable Respooler UNSURE February 13, 2023 8:14pm Name of Medical Power of Cable Respooler Ana M Singletary March 07, 2023 10:14pm Advance Directive Response Recorded Date/ Time Name of Medical Power of Cable Respooler ON FILE March 28, 2023 11:29am Name of Medical Power of Cable Respooler ANA M April 07, 2023 1:45pm Living Will Yes April 07 1:45pm Power of Cable Respooler Yes April 07, 2023 1:45pm Name of Medical Power of Cable Respooler Ana M daught er February 08, 2023 5:53pm Name of Medical Power of Cable Respooler UNSURE February 13, 2023 8:14pm Name of Medical Power of Cable Respooler Ana M Hayder March 07, 2023 10:14pm Advance Directive Response Recorded Date/ Time Name of Medical Power of Cable Respooler ON FILE March 28, 2023 11:29am Name of Medical Power of Cable Respooler ANA M April 07, 2023 1:45pm Living Will No April 24 024 3:39pm Power of Cable Respooler No April 24, 2023 3:39pm Name of Medical Power of Cable Respooler Ana M, daught er February 08, 2023 5:53pm Name of Medical Power of Cable Respooler UNSURE February 13, 2023 8:14pm Name of Medical Power of Cable Respooler Ana M Hayder March 07, 2023 10:14pm Advance Directive Response Recorded Date/ Time Name of Medical Power of Cable Respooler ON FILE March 28, 2023 11:29am Name of Medical Power of Cable Respooler ANA M April 07, 2023 1:45pm Living Will Yes April 24 024 8:08pm Power of Cable Respooler No April 24, 2023 8:08pm Name of Medical Power of Cable Respooler Ana M, daught er February 08, 2023 5:53pm Name of Medical Power of Cable Respooler RE February 13, 2023 8:14pm Name of Medical Power of Cable Respooler Ana M Hayder March 07, 2023 10:14pm Advance Directive Response Recorded Date/ Time Name of Medical Power of Cable Respooler ON FILE March 28, 2023 11:29am Name of Medical Power of Cable Respooler ANA M April 07, 2023 1:45pm Name of Medical Power of Cable Respooler Ana M, daught er February 08, 2023 5:53pm Name of Medical Power of Cable Respooler UNSURE February 13, 2023 8:14pm Name of Medical Power of Cable Respooler Ana M Hayder March 07, 2023 10:14pm Name of Medical Power of Cable Respooler ANA M- [facility] April 30, 2023 9:47pm Living Will Yes April 30 9:47pm Power of Cable Respooler Yes April 30, 2023 9:47pm Advance Directive Response Recorded Date/ Time Name of Medical Power of Cable Respooler ON FILE March 28, 2023 12:29pm Name of Medical Power of Cable Respooler ANA M April 07, 2023 2:45pm Name of Medical Power of Cable Respooler Ana M Hayder March 07, 2023 11:14pm Name of Medical Power of Cable Respooler ANA M- [facility] April 30, 2023 10:47pm Living Will No June 27, 2023 3:34pm Power of Cable Respooler No June 26 3:34pm Advance Directive Response Recorded Date/ Time Living Will No June 23, 2024 2:33pm Do you have a Healthcare Power of Cable Respooler? No June 23, 2024 2:33pm Living Will Yes February 27 7:32pm Do you have a Healthcare Power of Cable Respooler? Yes February 28, 2024 7:32pm Name of Medical Power of Cable Respooler Ana M February 28, 2024 7:32pm Advance Directive Response Recorded Date/ Time Living Will No June 23, 2024 6:43pm Do you have a Healthcare Power of Cable Respooler? No June 23, 2024 6:43pm Living Will Yes February 27 7:32pm Do you have a Healthcare Power of Cable Respooler? Yes February 28, 2024 7:32pm Name of Medical Power of Cable Respooler Ana M February 28, 2024 7:32pm Advance Directive Response Recorded Date/ Time Living Will No June 23, 2024 6:43pm Do you have a Healthcare Power of Cable Respooler? No June 23, 2024 6:43pm Chief Complaint [...] Congestive heart failure Congestive heart failure s/p [facility] ED 03-16-22 CHF Reason for Visit [...] stenosis Renal insufficiency Atherosclerotic heart disease of [place] coronary artery without angina pectoris Diastolic CHF [...] Congestive heart failure Congestive heart failure s/p [facility] ED 03-16-22 CHF Congestive heart failure [...] stenosis Renal insufficiency Atherosclerotic heart disease of [place] coronary artery without angina pectoris Diastolic CHF Essential hypertension HLD (hyperlipidemia) Nonrheumatic aortic (valve) stenosis Renal insufficiency CHF (congestive heart failure) History of CAD (coronary artery disease) Chief Complaint 2 M FU sob Reason for Visit Atherosclerotic hear t disease of [place] coronary artery without angina pectoris Diastolic CHF [...] ejection fraction (HFpEF) Atherosclerotic heart disease of [place] coronary artery without angina pectoris Carotid artery [...] Anemia Acute dyspnea Atherosclerotic heart disease of [place] coronary artery without angina pectoris Carotid artery [...] Anemia Acute dyspnea Atherosclerotic heart disease of [place] coronary artery without angina pectoris Carotid artery [...] section and content) DATE CREATED AUTHOR 11/28/2018 [facility] ([place]) DATE CREATED AUTHOR AUTHOR'S ORGANIZ ATION 08/20/2023 [facility] ([place] DATE CREATED AUTHOR AUTHOR'S ORGANIZ ATION 04/05/2024 [facility] DATE CREATED AUTHOR AUTHOR'S ORGANIZ ATION 08/07/2024 [facility] Care Team (unrecognized sect ion and content) Care Team Personnel Name: TALYA NICHOLS DO Position: P4 Physician - Primary Care Med Service: Active Provider Member Role: Primary Care Physician Address: Address: [address] [place] [address] Care Team Related Persons Name: ANA M YADAV Care Team Personnel Name: TALYA NICHOLS DO Position: P4 Physician - Primary Care Member Role: Primary Care Physician Address: Address: [address] [place] [address] Care Team Related Persons Name: ANA M SINGLETARY Care Team Personnel Name: TALYA NICHOLS DO Position: P4 Physician - Primary Care Member Role: Primary Care Physician Address: Address: [address] [place] [address] Care Team Related Persons Name: ANA M [...] Provider, Referri ng Provider Active Bart Galo SCALE OPERATOR, SCALE OPERATOR-C Attending Provider Active Team Status: Active Member [...] Lester MD Emergency Provider Active Dr. Romario Blnacas , DO Admit Provider, Other Pro vider [...] , DO Emergency Provider Active Dr. Michelle aWshburn , DO Admit Provider, Other Provider Ac [...] Active Start: March 02, 2024 Dr. Gerry Womcak DO Emergency Provider Active Start: March 02, [...] 24, 2024 End: March 24, 2024 Dr. Yurdiia Hernandez MD Referring Provider Active Start: March [...] BE BASED ON THE PRIMARY CLINICAL RECORDS. [facility] [employer] provides no warranty or guarantee of the accuracy or completeness of information in this document.
[2024-08-21 01:56] LABS: Bedside Glucose 162 mg/dL (74-106)
[2024-08-21 02:04] LABS: Troponin T High Sens 4 HR 116 ng/L (<=22)
[2024-08-21 04:46] LABS: Absolute Lymphocyte Count 0.86 X10^3/uL (0.83-4.51); Basophil# 0.03 X10^3/uL; Basophil% 0.5 % (0-1); Eosinophil# 0.16 X10^3/uL; Eosinophils% 2.4 % (0-5); Hematocrit 28.8 % (40-54); Hemoglobin 9.2 g/dL (13.0-16.5); Lymphocyte # 0.86 X10^3/ul (0.83-4.51); Lymphocyte % 13.1 % (19-41); Mean Corp Hgb Conc 31.9 g/dL (32-36); Mean Corpuscular Hgb 29.7 pg (27.0-32.0); Mean Corpuscular Volume 92.9 fL (80-94); Mean Platelet Vol. 10.6 fl (6.2-12.0); Monocyte# 0.56 X10^3/uL; Monocyte% 8.5 % (0-10); NRBC Flagged by Analyzer 0 % (0-5); Neutrophil # 4.95 X10^3/uL (2.7-7.7); Platelet Count 100 K/mm3 (150-450); RBC Distribution Width CV 12.5 % (11.6-14.6); RBC Distribution Width SD 42.4 fl (35.1-43.9); White Blood Count 6.6 K/mm3 (4.4-11.0)
[2024-08-21 05:07] LABS: ALB/GLOB Ratio 1.5 RATIO (0.9-2.4); AST(SGOT) 16 U/L (<=37); Alanine Aminotransfer ALT/SGPT 9 U/L (<=46); Albumin, Serum 3.8 g/dL (3.4-4.8); Alkaline Phosphatase 75 U/L (40-129); Anion Gap 13 (5-15); BUN 54 mg/dL (4-19); BUN/Creat Ratio 22.7 RATIO (10-20); Calcium,Total 9.5 mg/dL (7.6-11.0); Carbon Dioxide 29.4 mmol/L (21.0-32.0); Chloride 100 mmol/L (98-108); Creatinine, Serum 2.39 mg/dL (0.70-1.20); EST Glomerular Filtration Rate 26 (>60); Estimated Creatinine Clearance 22.38 ml/min (50-250); Globulin 2.6 g/dL (2.2-4.2); Glucose 148 mg/dL (70-99); Magnesium 2.1 mg/dL (1.5-2.2); Phosphorus 3.5 mg/dL (2.7-4.5); Potassium 4.2 mmol/L (3.3-5.1); Protein, Total 6.4 g/dL (5.9-8.4); Sodium Level 143 mmol/L (133-145)
[2024-08-21] MEDS: Liothyronine 5 MCG Tablet 25 MCG PO (06:36)
[2024-08-21] MEDS: Heparin Injection (Vial) 5,000 UNIT/ML VIAL 5000 UNIT SC ×2 (06:37→13:23)
[2024-08-21] MEDS: Sucralfate 1 GM Tablet PO ×2 (06:37→15:51)
[2024-08-21] MEDS: 0.9% Saline Lock 10 ML Syringe IV (06:38)
[2024-08-21 07:18] LABS: Bedside Glucose 120 mg/dL (74-106)
[2024-08-21] MEDS: Ipratropium/Albuterol Sulfate 3 ML AMPUL.NEB INHALATION ×2 (07:44→13:43)
--- NOTE | 2024-08-21 08:04 | PN.HOSP_ITS ---
Reason for Visit Reason for Visit: Diagnoses Acute on chronic diastolic (congestive) heart failure (08/20/24) Acute and chronic respiratory failure with hypoxia (08/20/24) Tachypnea, not elsewhere classified (08/20/24) Other specified abnormal findings of blood chemistry (08/20/24) Subjective Subjective Feeling well. Feels ready to go home as he is alway on 3l/nc. Objective Data Objective Data Vital Signs: Vital Signs Temp Pulse Resp BP Pulse Ox O2 Del Method O2 Flow Rate 36.7 C 80 16 110/45 L 98 Nasal Cannula 3 08/21/24 03:17 08/21/24 07:44 08/21/24 07:44 08/21/24 03:17 08/21/24 07:44 08/21/24 07:56 08/21/24 07:56 Oxygen Flow Rate (L/min) 3 Oxygen Delivery Method Nasal Cannula Weight: 82.8 kg Body Mass Index (BMI) 30.4 Intake & Output: Intake and Output for Last 24 Hours 08/19/24 08/20/24 08/21/24 23:59 23:59 23:59 Output Total 230 / 230 Balance -230 / -230 Lab / Micro Data 08/21/24 04:28 08/21/24 04:28 Labs: Laboratory Results - last 24 hr 08/20/24 20:50: WBC 6.5, RBC 3.48 L, Hgb 10.3 L, Hct 32.2 L, MCV 92.5, MCH 29.6, MCHC 32.0, RDW Std Deviation 41.2, RDW Coeff of John 12.3, Plt Count 111 L, MPV 10.9, Immature Gran % (Auto) 0.300, Neut % (Auto) 74.6 H, Lymph % (Auto) 13.2 L, [place] % (Auto) 7.4, Eos % (Auto) 4.0, Baso % (Auto) 0.5, Absolute Neuts (auto) 4.8, Absolute Lymphs (auto) 0.85, Nucleated RBC % 0, Sodium 144, Potassium 4.7, Chloride 101, Carbon Dioxide 30.5, Anion Gap 13, BUN 52 H, Creatinine 2.30 H, E st GFR (MDRD) Non-Af 27 L, BUN/Creatinine Ratio 22.5 H, Glucose 114 H, Calcium 9.6, Troponin T High Sens 72 H* D, NT pro BNP II 3982 H 08/20/24 22:54: Troponin T Hi Sens 2 Hr 85 H* 08/21/24 01:30: Troponin T Hi Sens 4Hr 116 H* 08/21/24 01:35: POC Glucose 162 H 08/21/24 04:28: WBC 6.6, RBC 3.10 L, Hgb 9.2 L, Hct 28.8 L, MCV 92.9, MCH 29.7, MCHC 31.9 L, RDW Std Deviation 42.4, RDW Coeff of John 12.5, Plt Count 100 L, MPV 10.6, Immature Gran % (Auto) 0.500, Neut % (Auto) 75.0 H, Lymph % (Auto) 13.1 L, [place] % (Auto) 8.5, Eos % (Auto) 2.4, Baso % (Auto) 0.5, Absolute Neuts (auto) 5.0, Absolute Lymphs (auto) 0.86, Nucleated RBC % 0, Sodium 143, Potassium 4.2, Chloride 100, Carbon Dioxide 29.4, Anion Gap 13, BUN 54 H, Creatinine 2.39 H, E stim Creat Clear Calc 22.38 L, Est GFR (MDRD) Non-Af 26 L, BUN/Creatinine Ratio 22.7 H, Glucose 148 H, Calcium 9.5, Phosphorus 3.5, Magnesium 2.1, Total Bilirubin 0.30, AST 16, ALT 9, Alkaline Phosphatase 75, Total Protein 6.4, Albumin 3.8, Globulin 2.6, Albumin/Globulin Ratio 1.5 08/21/24 06:44: POC Glucose 120 H Micro: Microbiology 08/21/24 00:25 Mucosa - Nasopharyngeal Respiratory Panel (PCR) - Final 08/20/24 21:39 Mucosa - Nose SARS-CoV-2, Influenza & RSV (PCR) - Final Radiography Diagnostic Testing: Radiology Impression Chest X-Ray 08/20/24 22:00 IMPRESSION: Findings favoring mild edema. Reading Location: [place] [address] Physical Exam Const alert and no apparent distress HEENT head/scalp atraumatic and moist oral mucous membranes Resp normal respiratory effort, no retractions, no use of accessory muscles and clear to auscultation bilaterally Cardio regular rate, regular rhythm, S1 normal heart sound and S2 normal heart sound GI normal to inspection, nondistended, normoactive bowel sounds, soft to palpation, non-tender and non-distended Extremity normal to inspection Neuro oriented x3, CN's II-XII intact bilaterally, moves all extremities and no focal motor deficits Psych affect normal Assessment & Plan Assessment/Plan (1) Acute on chronic heart failure with preserved ejection fraction (HFpEF): PLAN: EF 55% from echo on 11/15/23. Refusing another echo telling nursing I'm 84- years old. I don't need that done. on IV bumetanide 2mg IV BID continue metoprolol succinate Pt doing well and reporting that he can go home. Will check an ambulatory pulse to see how he does before making a decision on disposition. PLAN: Plan Chronic conditions: * hypothyroidism: liothyronine * GERD/PUD: PPI and sucralfate * DM2: empagliflozin and SSI * HLP: atorvastatin * anemia: stable. continue iron * CKD IV: stable. monitor VTE prophylaxis: SQ heparin Charges/Coding Visit Charges Inpatient E&M: 76467 Subs Hosp L2
[2024-08-21] MEDS: Bumetanide 1 MG/4 ML Vial 2 MG IV (09:02)
[2024-08-21] MEDS: Empagliflozin 10 MG Tablet PO (09:02)
[2024-08-21] MEDS: Cholecalciferol (VIT D3) 25 MCG TABLET (1,000 UNITS) PO (09:02)
[2024-08-21] MEDS: Pantoprazole Sodium 40 MG Tablet PO (09:02)
[2024-08-21] MEDS: Metoprolol(XL)Succ 25 MG Tablet PO (09:02)
[2024-08-21] MEDS: Multivitamin (Healthy Eyes) Capsule 1 CAP PO (09:02)
--- NOTE | 2024-08-21 11:17 | CASEMGMT ---
Addendum entered by Goldie Rodriguez 08/21/24 15:03: Per the highway patrol pilot, pt does not currently qualify for an updated o2 Rx. Original Note: RN CM Assessment Face to Face with patient for initial transition planning/care coordination assessment. RN CM introduced self and role at [facility], pt voices understanding. Pt is A&Ox4 and is resting comfortably in the chair and is calm. Care providers, pharmacy, and demographics verified. Admitting dx: Acute on Chronic Hypoxic RF LACE Strata: 3 PCP: Emeka Hernandez Specialists: Friend (GI), Wu (Nephrology) Preferred Pharmacy: [facility] Insurance: [employer] [place] Prescription Benefit: Yes LNOK: Katie (Daughter) Living Arrangements: Pt lives alone in a mobile home with 8 steps to enter with bilateral handrails ADLs/IADLs: Pt is indep. Pt was cleared by PT with a 6-Click score is 24, see note. Transportation: Pt does not drive. Pt reports that his daughter and his friend drives him. DME: Home oxygen through [facility]. [facility] states that the pts current order is 2L @ rest and 4L with exertion. Pt states that he has a concentrator, POC (Daughter will bring in @ [place]), portable tanks, pulse ox, nebulizer, inhaler, BGM with sufficient supplies, Raised toilet seat, shower chair, BP Machine, Cane, FWW, and transport chair. HHC/SNF: History @ [facility] and [facility] HH. Pt is active with CCN and Palliative Care. E-Mail sent to [facility] to notify of admission Pt?s goal: Home Plan: Home with the continuation of CCN and Palliative Care. Pt also states that he has support through his daughter and friend. Pt states that his daughter takes out the trash for the pt and helps with grocery shopping. Pt denies the need for further skilled HHC or OP Tx. Pt states that he is comfortable with the resources and support that he currently has at home and denies further needs or concerns at this time. CM to follow for updated O2 Rx needs. Jenna Rodriguez RN, CM
--- NOTE | 2024-08-21 11:17 | CASEMGMT ---
Addendum entered by Goldie Rodriguez 08/21/24 15:03: Per the flash ranging crewmember, pt does not currently qualify for an updated o2 Rx. Original Note: RN CM Assessment Face to Face with patient for initial transition planning/care coordination assessment. RN CM introduced self and role at [facility], pt voices understanding. Pt is A&Ox4 and is resting comfortably in the chair and is calm. Care providers, pharmacy, and demographics verified. Admitting dx: Acute on Chronic Hypoxic RF LACE Strata: 3 PCP: Emeka Hernandez Specialists: Friend (GI), Wu (Nephrology) Preferred Pharmacy: [facility] Insurance: [employer] Prescription Benefit: Yes LNOK: Katie (Daughter) Living Arrangements: Pt lives alone in a mobile home with 8 steps to enter with bilateral handrails ADLs/IADLs: Pt is indep. Pt was cleared by PT with a 6-Click score is 24, see note. Transportation: Pt does not drive. Pt reports that his daughter and his friend drives him. DME: Home oxygen through [facility]. [facility] states that the pts current order is 2L @ rest and 4L with exertion. Pt states that he has a concentrator, POC (Daughter will bring in @ [place]), portable tanks, pulse ox, nebulizer, inhaler, BGM with sufficient supplies, Raised toilet seat, shower chair, BP Machine, Cane, FWW, and transport chair. HHC/SNF: History @ [facility] and [facility] HH. Pt is active with CCN and Palliative Care. E-Mail sent to [facility] to notify of admission Pt?s goal: Home Plan: Home with the continuation of CCN and Palliative Care. Pt also states that he has support through his daughter and friend. Pt states that his daughter takes out the trash for the pt and helps with grocery shopping. Pt denies the need for further skilled HHC or OP Tx. Pt states that he is comfortable with the resources and support that he currently has at home and denies further needs or concerns at this time. CM to follow for updated O2 Rx needs. Jenna Rodriguez RN, CM
[2024-08-21 11:40] LABS: Bedside Glucose 135 mg/dL (74-106)
--- NOTE | 2024-08-21 16:23 | PCM.DC.SUM ---
Providers Date of Admission: 08/20/24 Primary Care Physician: Dr. Emeka Hernandez MD Reason For Visit: ACUTE ON CHRONIC HYPOXIC RESPIRATORY FAILURE Diagnosis Discharge Diagnosis (1) Acute on chronic heart failure with preserved ejection fraction (HFpEF): Status: Acute Code(s): I50.33 - Acute on chronic diastolic (congestive) heart failure Plan: EF 55% from echo on 11/15/23. Refusing another echo telling nursing I'm 84-years old. I don't need that done. on IV bumetanide 2mg IV BID continue metoprolol succinate Pt doing well and reporting that he can go home. Ambulatory pulse ox was within normal limits. As patient is already on oxygen at home. Patient will be discharged home. Change back to torsemide. Fluid restrict at home. Daily weights Plan Elevated troponins secondary to type II myocardial infarction due to demand from heart failure exacerbation. But also likely skewed due to chronic kidney disease. Chronic conditions: hypothyroidism: liothyronine GERD/PUD: PPI and sucralfate DM2: empagliflozin and SSI HLP: atorvastatin anemia: stable. continue iron CKD IV: stable. monitor VTE prophylaxis: SQ heparin Medications at Discharge Home Medications atorvastatin 80 mg tablet 80 mg PO DAILY CHOLESTEROL 05/02/21 cholecalciferol (vitamin D3) 25 mcg (1,000 unit) capsule 25 mcg PO DAILY vitamin 05/02/21 ipratropium 0.5 mg-albuterol 3 mg (2.5 mg base)/3 mL nebulization soln 3 ml inhalation 4X/DAY PRN sob 05/02/21 liothyronine 25 mcg tablet 25 mcg PO DAILY THYROID 05/02/21 tiotropium bromide 18 mcg capsule with inhalation device (Spiriva with HandiHaler) 18 mcg inhalation DAILY SOB 05/02/21 vitamins A,C,H-hsnu-ndcrco 4,296 mcg-226 mg-90 mg capsule (PreserVision AREDS) 1 cap PO BID vitamin 12/13/21 glimepiride 2 mg tablet 2 mg PO DAILY DM #3 tabs 03/09/23 empagliflozin 10 mg tablet (Jardiance) 10 mg PO DAILY heart failure 30 days #30 tabs 04/26/23 metoprolol succinate 25 mg tablet,extended release 24 hr 25 mg PO DAILY heart 06/27/23 ferrous sulfate 325 mg (65 mg iron) tablet (FeroSul) 325 mg PO BID supplement 11/14/23 pantoprazole 40 mg tablet,delayed release 40 mg PO BID reflux #60 tabs 03/02/24 sucralfate 1 gram tablet 1 g PO Q6H stomach 90 days #360 tabs 05/01/24 oxycodone 5 mg tablet 2.5 mg PO BID PRN shortness of breath 07/14/24 torsemide 5 mg tablet 5 mg PO DAILY 07/15/24 Hospital Course Operations None Procedures None Summary of Care Provided Minutes Spent on Discharge: 32 Hospital Course: Patient was admitted for acute heart failure exacerbation. Patient had BNP of 3000 182. Did also have elevated troponins that peaked at 116. Patient does not have any chest pain. Patient was started on Bumex for CHF through the IV. I did order an echocardiogram, however the patient declined to have that done. Patient was monitored overnight and is feeling well. Patient anxious to go home. We did do an ambulatory pulse ox and the patient remained stable on his 3 L nasal cannula which is what he is on at home. Will discharge patient back with his daily torsemide but to check his weight daily and to limit his fluid intake to 1.5 L/day. Weight / BMI Weight Weight: 82.8 kg Body Mass Index (BMI) 30.4 ABG / Lab / Microbiology Data 08/21/24 04:28 08/21/24 04:28 Laboratory: Laboratory Results - last 24 hr 08/20/24 20:50: WBC 6.5, RBC 3.48 L, Hgb 10.3 L, Hct 32.2 L, MCV 92.5, MCH 29.6, MCHC 32.0, RDW Std Deviation 41.2, RDW Coeff of John 12.3, Plt Count 111 L, MPV 10.9, Immature Gran % (Auto) 0.300, Neut % (Auto) 74.6 H, Lymph % (Auto) 13.2 L, [place] % (Auto) 7.4, Eos % (Auto) 4.0, Baso % (Auto) 0.5, Absolute Neuts (auto) 4.8, Absolute Lymphs (auto) 0.85, Nucleated RBC % 0, Sodium 144, Potassium 4.7, Chloride 101, Carbon Dioxide 30.5, Anion Gap 13, BUN 52 H, Creatinine 2.30 H, Est GFR (MDRD) Non-Af 27 L, BUN/Creatinine Ratio 22.5 H, Glucose 114 H, Calcium 9.6, Troponin T High Sens 72 H* D, NT pro BNP II 3982 H 08/20/24 22:54: Troponin T Hi Sens 2 Hr 85 H* 08/21/24 01:30: Troponin T Hi Sens 4Hr 116 H* 08/21/24 01:35: POC Glucose 162 H 08/21/24 04:28: WBC 6.6, RBC 3.10 L, Hgb 9.2 L, Hct 28.8 L, MCV 92.9, MCH 29.7, MCHC 31.9 L, RDW Std Deviation 42.4, RDW Coeff of John 12.5, Plt Count 100 L, MPV 10.6, Immature Gran % (Auto) 0.500, Neut % (Auto) 75.0 H, Lymph % (Auto) 13.1 L, [place] % (Auto) 8.5, Eos % (Auto) 2.4, Baso % (Auto) 0.5, Absolute Neuts (auto) 5.0, Absolute Lymphs (auto) 0.86, Nucleated RBC % 0, Sodium 143, Potassium 4.2, Chloride 100, Carbon Dioxide 29.4, Anion Gap 13, BUN 54 H, Creatinine 2.39 H, Estim Creat Clear Calc 22.38 L, Est GFR (MDRD) Non-Af 26 L, BUN/Creatinine Ratio 22.7 H, Glucose 148 H, Calcium 9.5, Phosphorus 3.5, Magnesium 2.1, Total Bilirubin 0.30, AST 16, ALT 9, Alkaline Phosphatase 75, Total Protein 6.4, Albumin 3.8, Globulin 2.6, Albumin/Globulin Ratio 1.5 08/21/24 06:44: POC Glucose 120 H 08/21/24 11:23: POC Glucose 135 H Microbiology: Microbiology 08/21/24 00:25 Mucosa - Nasopharyngeal Respiratory Panel (PCR) - Final 08/20/24 21:39 Mucosa - Nose SARS-CoV-2, Influenza & RSV (PCR) - Final Radiography Diagnostic Testing: Radiology Impression Chest X-Ray 08/20/24 22:00 IMPRESSION: Findings favoring mild edema. Reading Location: [place] [address] D/C Instructions Discharge Diet: - (1.5 L (50 ounces) of fluid per day.) DC O2, CPAP, BIPAP Needs Home O2 Discharge instructions: Yes Type of respiratory needs?: Oxygen Oxygen frequency: Continuous Continuous oxygen liters per minute: 3 DC home with Oxygen: Yes Home O2 MD Review: I have reviewed the oxygen testing, and the patient qualifies for home oxygen equipment and portability. The patient is mobile in the home and the community. Meaningful Use Info Meaningful Use Meaningful Use Diagnoses (Choose all that apply): CHF CHF RICH/ARB ordered at discharge?: No Reason RICH/ARB not ordered?: Hyperkalemia Documented LVEF (%): 50 Ischemic Stroke Statin Dosing Therapy Reference: STATIN DOSE THERAPY REFERENCE: * Patients > 75 years receive moderate or high dose statin therapy. * Patients 75 years or YOUNGER should receive HIGH intensity statin dose unless contraindicated. You will be required to document reason for non-treatment if statin daily dose does not meet guidelines. HIGH DOSE STATIN THERAPY DAILY Atorvastatin > than or = to 40 mg Rosuvastatin > than or = to 20 mg Amlodipine + Atorvastatin > than or = to 2.5/40 mg Ezetimibe + Simvastatin 10/80 mg Simvastatin 80mg Discharge Plan Admission Admit Date/Time: 08/20/24 23:44 Primary Reason for Your Visit: CHF exacerbation Attending Provider: Eyal Moore Primary Care Provider: Emeka Hernandez Consulting Providers: Michelle Washburn Instructions Patient Instructions: Heart Failure Zones: Action Plan, Heart Failure: Tracking Your Weight, Heart Failure: Being Active, Heart Failure Make Changes Diet, Heart Failure: Know Your Baselines, Heart Failure Post Hospital Discharge Orders/Prescriptions Prescriptions: Continued oxycodone 5 mg tablet 2.5 mg PO BID PRN (Reason: shortness of breath) atorvastatin 80 mg tablet 80 mg PO DAILY ipratropium-albuterol 0.5 mg-3 mg(2.5 mg base)/3 mL solution for nebulization 3 ml inhalation 4X/DAY PRN (Reason: sob) Patient Comments: inhale contents of 1 vial ( 3 milliliters ) in nebulizer by mouth... (REFER TO PRESCRIPTION NOTES). liothyronine 25 mcg tablet 25 mcg PO DAILY Patient Comments: TAKE 1 TABLET BY MOUTH ONCE DAILY FOR 90 DAYS tiotropium bromide [Spiriva with HandiHaler] 18 mcg capsule, w/inhalation device 18 mcg INHALATION DAILY Patient Comments: INHALE THE CONTENTS OF 1 CAPSULE TWICE EACH TIME VIA HANDIHALER ONCE DAILY cholecalciferol (vitamin D3) 25 mcg (1,000 unit) Capsule 25 mcg PO DAILY PreserVision AREDS [phone] Capsule 1 cap PO BID Jardiance 10 mg Tablet 10 mg PO DAILY 30 Days Qty: 30 0RF glimepiride 2 mg tablet 2 mg PO DAILY Qty: 3 0RF Patient Comments: take 1 tablet by mouth once daily WITH FIRST MEAL OF THE DAY Rx Instructions: Hold if glucose less than 130 mg/dl metoprolol succinate 25 mg tablet extended release 24 hr 25 mg PO DAILY ferrous sulfate [FeroSul] 325 mg (65 mg iron) tablet 325 mg PO BID torsemide 5 mg tablet 5 mg PO DAILY pantoprazole 40 mg tablet,delayed release (DR/EC) 40 mg PO BID Qty: 60 3RF sucralfate 1 gram tablet 1 g PO Q6H 90 Days Qty: 360 3RF Discontinued furosemide 40 mg tablet 40 mg PO DAILY lisinopril 10 mg tablet 10 mg PO DAILY Referrals / Follow Up: Emeka Hernandez MD [Primary Care Provider] - Within 2 Weeks Disposition Disposition (needs filled in before D/C Order can be placed): Home, Self Care Charges/Coding Visit Charges Inpatient E&M: 98626 Disch Hosp >30min
[2024-08-21 16:24] LABS: Bedside Glucose 147 mg/dL (74-106)
[2024-08-21] MEDS: Ferrous Sulfate 325 MG Tablet PO (16:51)
== END 2024-08-21 18:19 | disposition home or self-care (01) ==
LOC: ED 23:52 → MS2 08-21 00:37
PROVIDERS: Admitting Provider Internal Medicine; Emergency Provider Emergency Medicine; PCP Family Medicine; Referring Provider Emergency Medicine
DX: I13.0 Hypertensive heart and chronic kidney disease with heart failure and stage 1 through stage 4 chronic kidney disease, or unspecified chronic kidney disease (principal); N18.4 Chronic kidney disease, stage 4 (severe); J96.11 Chronic respiratory failure with hypoxia; I50.33 Acute on chronic diastolic (congestive) heart failure; J44.1 Chronic obstructive pulmonary disease with (acute) exacerbation; I21.A1 Myocardial infarction type 2; E11.22 Type 2 diabetes mellitus with diabetic chronic kidney disease; D64.9 Anemia, unspecified; Z66 Do not resuscitate; D69.6 Thrombocytopenia, unspecified; E03.9 Hypothyroidism, unspecified; I65.23 Occlusion and stenosis of bilateral carotid arteries; E66.9 Obesity, unspecified; K27.7 Chronic peptic ulcer, site unspecified, without hemorrhage or perforation; E78.00 Pure hypercholesterolemia, unspecified; I25.10 Atherosclerotic heart disease of native coronary artery without angina pectoris; K21.9 Gastro-esophageal reflux disease without esophagitis; I25.2 Old myocardial infarction; Z99.81 Dependence on supplemental oxygen; Z68.30 Body mass index [BMI] 30.0-30.9, adult; Z79.84 Long term (current) use of oral hypoglycemic drugs; Z79.890 Hormone replacement therapy; Z79.899 Other long term (current) drug therapy; Z87.891 Personal history of nicotine dependence
CPT/HCPCS: 36415; 71046; 80048; 80053; 82962; 83735; 83880; 84100; 84484; 85025; 87631; 87633; 93005; 94640; 96372; 96374; 96375; 97161; 97802; 99221; 99285; Q9957; A4216; G0378; J1938